=== PATIENT | male | born 1965 | race Caucasian/White ===

== ENCOUNTER 2024-08-21 13:49 | Emergency (ER) | payer OTHER, SELFPAY ==
[2024-08-21 13:52] VITALS: BP 122/79; PULSE 67; RESP 16; TEMP 36.8; O2SAT 97; BMI 33.0
[2024-08-21] MEDS: Morphine 4 MG/ML Syringe IM (14:56)
[2024-08-21] MEDS: Ondansetron ODT 4 MG Tablet PO (14:56)
--- NOTE | 2024-08-21 15:10 | RAD_ITS ---
STUDY: X-RAY - LUMBAR SPINE REASON FOR EXAM: Male, 59 years old. fall TECHNIQUE: 2 view(s) of the lumbar spine were obtained. COMPARISON: None FINDINGS: Normal lumbar lordosis. There is no substantial scoliosis. There is a normal alignment of the vertebrae. Wedge deformities of T10, T11, T12, and L1 are seen. These appear chronic. No definite acute fractures are seen. Normal disc space heights. The soft tissue structures are unremarkable. RAD/Lumbar Spine 2 or 3 Views IMPRESSION: There is no definite acute abnormality seen. No significant degenerative disc disease seen. Electronically Signed: Popeye Lopez MD at 15:51 EST ,
--- NOTE | 2024-08-21 15:15 | EX.ED.DYSGE1 ---
HPI <YG Tomlin - Last Filed: 08/21/24 16:31> History of Present Illness Chief Complaint: Fall Narrative Narrative: Patient is a 59-year-old male with history of hypertension, diabetes, cirrhosis of the liver who presents to the [facility] apartment after mechanical fall. Patient states he gets all of his care done at [facility]. He just recently moved here 3 to 4 days ago. Patient states that he had a mechanical fall early this morning, landing on his lower lumbar spine. Denies any head or neck injury. Patient states he had a call the ambulance. The pain is lower lumbar spine. Denies any other injury. COUNTS INCLUDE 234 BEDS AT THE [facility] <YG Tomlin - Last Filed: 08/21/24 16:31> COUNTS INCLUDE 234 BEDS AT THE [facility] Medical History (Updated 08/21/24 @ 16:31 by YG Tomlin) Back pain Home Medications ?Medication ?Instructions ?Recorded ?Last Taken ?Type lidocaine 5 % topical patch 3 patch topical DAILY #15 ea 08/21/24 Unknown Rx (Lidoderm) Allergy/AdvReac Type Severity Reaction Status Date / Time No Known Allergies Allergy Verified 08/21/24 13:50 Social History Smoking Status: Former smoker ROS <YG Tomlin - Last Filed: 08/21/24 16:31> ROS ED ROS Narrative Constitutional: Negative for fever, chills, weight loss, weakness Eyes: Negative for vision loss, vision change, double vision ENT: Negative for any sore throat, ear pain, congestion Cardiovascular: Negative for any chest pain, tightness, palpitations Respiratory: Negative for any cough, sputum production, hemoptysis, dyspnea, dyspnea on exertion, orthopnea Gastrointestinal: Negative for any abdominal pain, nausea, vomiting, diarrhea, constipation, blood in stool, blood in vomit : Negative for any urinary frequency, dysuria, retention, blood in urine Muscle skeletal: Negative for any neck pain. Positive for lower back pain Neurological: Negative for any headache, syncope, dizziness Skin: Negative for any rashes, itching, abrasions, lacerations Psychiatric: Negative for any depression, anxiety, stress, suicidal ideation, homicidal ideation Hematologic: Negative for any excessive bruising, easy bleeding EXAM <YG Tomlin - Last Filed: 08/21/24 16:31> Physical Exam Narrative Exam Narrative: Vital signs reviewed. HEET: Head normocephalic atraumatic, TMs clear bilaterally. Posterior pharynx is clear, moist mucous membranes. Nares clear bilaterally. Neck: Supple with no lymphadenopathy or tenderness. No signs of meningismus. Cardiac: Regular rate and rhythm no murmurs gallops or rubs, equal peripheral pulses bilaterally. Respiratory: Lungs clear to auscultation bilaterally. No chest tenderness. Abdomen: Soft, nontender, nondistended. No abdominal bruit or pulsatile masses. No hepatosplenomegaly Extremities: No peripheral edema, no signs of gross trauma or deformity. Active full range of motion of all extremities. Neuro: Cranial nerves II through XII intact, no focal neurological deficits. Skin: Clean dry and intact with no rash, purpura, petechiae, vesicles or pustules. Backs/flank: Pain to the lower lumbar spine, most the pain is to the right side paraspinal, there is no ecchymosis or edema. There is no midline spinal tenderness. Patient has full range of motion of the legs. +2 radial pulses. +2 pedal pulses. Equal strength bilaterally. Psych: Normal mood and affect. No SI, HI or acute psychosis. Const Vital Signs: 08/21/24 13:52 08/21/24 16:33 Temperature 98.3 F 98.5 F Temperature Source Oral Pulse Rate 67 61 Respiratory Rate 16 12 Blood Pressure 122/79 H 114/78 Blood Pressure Mean 93 90 Pulse Ox 97 97 Oxygen Delivery Method Room Air <Dr. Danny Hutton DO - Last Filed: 08/22/24 01:24> Physical Exam Const Vital Signs: 08/21/24 13:52 08/21/24 16:33 Temperature 98.3 F 98.5 F Temperature Source Oral Pulse Rate 67 61 Respiratory Rate 16 12 Blood Pressure 122/79 H 114/78 Blood Pressure Mean 93 90 Pulse Ox 97 97 Oxygen Delivery Method Room Air [facility] <YG Tomlin - Last Filed: 08/21/24 16:31> MDM Radiography Diagnostic Testing: Clinical Impression(s) from Imaging Studies Lumbar Spine X-Ray 08/21/24 15:10 IMPRESSION: There is no definite acute abnormality seen. No significant degenerative disc disease seen. Electronically Signed: Popeye Lopez MD at 15:51 EST , Treatment and Re-Evaluation :: Differential diagnosis includes however is not limited to: Lumbar fracture, lumbar strain, lumbar contusion, muscle spasm Patient appears generally well, vital signs are stable, patient is nontoxic-appearing. Presenting to the emergency department with complaints of lower lumbar back pain after mechanical fall that occurred earlier today. Patient will receive IM morphine, oral Zofran. X-rays will be obtained of the lower lumbar spine. All radiologic examinations were read, reviewed by the emergency department attending. From these reads, a plan of care will be put in place. Patient reevaluation was improved. Patient was resting. X-ray of the lower lumbar spine shows no definite acute abnormality seen. At this time, patient will be discharged home. Instructed to take [id number] medications. He will follow-up outpatient. All questions answered, patient stable for discharge. <Dr. Danny Hutton, DO - Last Filed: 08/22/24 01:24> MDM MDM Narrative Medical decision making narrative: Supervisory Physician Note Patient was seen and examined with the Advanced Practice Provider. Nursing notes and vital signs have been reviewed. Pertinent old records have been reviewed. I agree with the essential elements of the SAMSON's history, physical exam, assessment, and plan. The differential diagnosis and management options were discussed with the SAMSON. I participated in determining and agree with the management, procedures, final impression and disposition as documented. See changes noted by me. Please see addendum or separate note for any additional details. 59-year-old male presents for lumbar back pain after mechanical fall. Symptoms treated. Differential included myofascial spasm/strain versus fracture. Suspected less likely fracture based on physical exam. X-ray obtained and negative for fracture dislocation. Pain was controlled and improved. Patient ambulated in the emergency without difficulty. Patient was discharged home. Impression: 1. Lumbar contusion 2. Lumbar back strain 3. Mechanical fall Radiography Diagnostic Testing: Clinical Impression(s) from Imaging Studies Lumbar Spine X-Ray 08/21/24 15:10 IMPRESSION: There is no definite acute abnormality seen. No significant degenerative disc disease seen. Electronically Signed: Popeye Lopez MD at 15:51 EST , Discharge Plan Triage Chief Complaint: Fall Other Complaint: Back ED Midlevel Provider: Jerald Blandon ED Provider: Danny Hutton Dx/Rx/DC Orders Clinical Impression: Fall, Lumbar contusion Instructions: ED Back Contusion Prescriptions: New lidocaine [Lidoderm] 5 % adhesive patch,medicated 3 patch topical DAILY Qty: 15 0RF Rx Instructions: leave on most painful area for up to 12 hrs Primary Care Provider: Care Physician,No Primary Referrals: Leann Marion MD [Med Staff - Link Trainer Operator] - Care Physician,No Primary [Primary Care Provider] - Activity Restrictions/Additional Instructions: Please follow-up outpatient. Perform gentle stretching, ice and heat. Print Language: Honduran Disposition Disposition: Home, Self Care Discharge Date/Time: 08/21/24 16:50
[2024-08-21 16:33] VITALS: BP 114/78; PULSE 61; RESP 12; TEMP 36.9; O2SAT 97
== END 2024-08-21 16:50 | disposition home or self-care (01) ==
PROVIDERS: Emergency Provider Surgery; Visit Provider Surgery
DX: S39.012A Strain of muscle, fascia and tendon of lower back, initial encounter (principal); K74.60 Unspecified cirrhosis of liver; E11.9 Type 2 diabetes mellitus without complications; Z79.4 Long term (current) use of insulin; W19.XXXA Unspecified fall, initial encounter; I10 Essential (primary) hypertension; Z79.899 Other long term (current) drug therapy; Z87.891 Personal history of nicotine dependence

== ENCOUNTER 2024-08-29 13:52 | Inpatient (IN) | payer OTHER, SELFPAY ==
[2024-08-29] VITALS (14 sets, daily range): BP systolic 75–146; BP diastolic 43–78; PULSE 55–99; RESP 11–18; TEMP 36.4–37.2; O2SAT 98–100; BMI 33.6; BMI 33.1
--- NOTE | 2024-08-29 15:09 | EDS_ITS ---
HPI History of Present Illness Chief Complaint: General Illness [facility] Medical History (Updated 08/29/24 @ 00:01 by Background Daemon) Back pain Home Medications ?Medication ?Instructions ?Recorded ?Last Taken ?Type lidocaine 5 % topical patch 3 patch topical DAILY #15 ea 08/21/24 Unknown Rx (Lidoderm) Allergy/AdvReac Type Severity Reaction Status Date / Time No Known Allergies Allergy Verified 08/29/24 13:52 Social History Smoking Status: Former smoker EXAM Physical Exam Const Vital Signs: 08/29/24 13:52 08/29/24 14:48 08/29/24 16:00 Temperature 98.6 F 98.9 F Temperature Source Oral Temporal Pulse Rate 99 78 Respiratory Rate 18 16 Respiratory Effort Normal Non-Labored Respiratory Pattern Normal Blood Pressure 104/78 146/78 H Blood Pressure Mean 86 100 Pulse Ox 99 98 Oxygen Delivery Method Room Air Room Air 08/29/24 17:35 08/29/24 17:43 08/29/24 18:50 Temperature Temperature Source Pulse Rate 55 L 55 L Respiratory Rate 11 L 13 Respiratory Effort Respiratory Pattern Blood Pressure 85/55 L 84/53 L 75/45 L Blood Pressure Mean 65 63 55 Pulse Ox 99 98 Oxygen Delivery Method Room Air Room Air 08/29/24 20:00 08/29/24 20:20 Temperature Temperature Source Pulse Rate 57 L Respiratory Rate 15 Respiratory Effort Respiratory Pattern Blood Pressure 89/56 L 94/63 Blood Pressure Mean 67 73 Pulse Ox 99 Oxygen Delivery Method MDM MDM MDM Narrative Medical decision making narrative: HISTORY OF PRESENT ILLNESS: 59-year-old male presents concern for generalized illness. Patient called EMS because he has a history of liver issues. He states I have ammonia issues. Notes he does not take medications at home. States he gets this way when numbers increased. He notes severe back pain notes his is chronic but exacerbated by recent fall where he fell down and hit his back. Denies head trauma. He denies vomiting, diarrhea, urinary complaints, fever cough. REVIEW OF SYSTEMS: Pertinent positives: Ammonia issues, back pain Pertinent negatives: Bowel or bladder incontinence, chest pain, shortness of breath PHYSICAL EXAM: Nursing triage notes reviewed, Vital signs reviewed Constitutional: please see mdm HENT: MMM Eyes: Scleral icterus Neck: No stridor, no JVD, full neck ROM Lungs: Clear to auscultation, No wheezing or rales. No increased work of breathing, no conversational dyspnea, no accessory muscle use, no nasal flaring. No respiratory distress noted Heart: Regular rate and rhythm, No murmurs, No rubs and No gallops, 2+ distal pulses (radial, femoral, posterior tibial) in all extremities Abdomen: Soft, there is no tenderness, rigidity, rebound or guarding, no obvious peritoneal signs, no palpable pulsatile abdominal masses, no auscultated abdominal bruit : No CVAT Extremities: No edema Back: Mid thoracic and upper lumbar TTP with no obvious above deformities. No bruising noted Neuro: A&O x 2 intact sensation L1-S1 dermatomal distributions. Intact 5/5 strength in hip flexion (T12-L3). Knee extension (L2-L4). Ankle dorsiflexion (L4-L5). Ankle plantar flexion (S1). Great toe extension (L5). 2+ patellar and Achilles DTRs. Skin: Jaundice MEDICAL DECISION MAKING: Chief Complaint: Ammonia issues, back pain External records reviewed: Reviewed recent ED visit for fall Factors affecting care: hypertension, diabetes, liver cirrhosis Social determinants of health: none History obtained from others: n EMS Consults: none [facility] Narrative: The patient was initially hemodynamically stable, afebrile and nontoxic- appearing. Exam with TTP over thoracic lumbar spine. No lower extremity neurovascular deficits no sign of head trauma patient was initially somnolent but arouses to voice. He was alert and oriented to person, time but not place (he thought he was in [place]) I considered the following differential diagnosis: ICH, bony injury of the axial skeleton, arrhythmia, anemia, electro disturbance, renal failure, decompensated cirrhosis ALL IMAGES (IF OBTAINED) HAVE BEEN PERSONALLY REVIEWED AND INTERPRETED BY MYSELF. EKG with sinus bradycardia rate 55, left axis deviation, normal intervals, QTc 430, no STEMI CBC with leukocytosis suggestive of systemic infection, noted mild anemia, no prior for comparison, noted thrombocytopenia Coagulation studies showed mild coagulopathy owing to liver disease CMP with mild hyponatremia, noted metabolic acidosis, noted severe kidney dysfunction, acute renal failure. Noted hyperbilirubinemia consistent with liver dysfunction Ammonia elevated Lipase is wnl indicating no pancreatic inflammation. UA with evidence of urinary inflammation will send for culture as patient has no urinary symptoms at this time. I have personally reviewed the patient's chest x-ray. Chest x-ray is unremarkable for pulmonary edema, pneumothorax, pneumonia or focal cardiopulmonary abnormality. The patient and/or family, caregivers express understanding. The patient and/or family, caregivers agrees with the plan. Shared decision making: I will have a discussion with the patient and or visitors regarding risk/benefits of further testing or admission. They will be made aware of of the risk/benefits inherent in this decision they will be given the opportunity to voice understanding. Total critical care time today provided was at least 0 minutes. This excludes separately billable procedures. Critical care time (if documented) is secondary to the patient having high probability of clinically significant/life threatening deterioration in the patient's condition which required my urgent intervention. Impression: 1. Back pain 2. Jaundice 3. Liver cirrhosis 4. Hypotension (resolved) 5. Hyperbilirubinemia 6. Metabolic acidosis 5. Acute renal failure Dispo: Admit This note was generated with [employer] dictation software. It may contain incorrect words, spelling, and punctuation that were not noted in review of the chart prior to signing. Lab Data Labs: Laboratory Results - last 24 hr 08/29/24 08/29/24 08/29/24 14:56 15:30 19:40 WBC 11.9 H RBC 3.86 L Hgb 11.2 L Hct 32.2 L MCV 83.4 MCH 29.0 MCHC 34.8 RDW Std Deviation 46.8 H RDW Coeff of Francis 15.4 H Plt Count 87 L MPV 12.5 H Immature Gran % (Auto) 1.000 H Neut % (Auto) 76.6 H Lymph % (Auto) 8.7 L Caroline % (Auto) 10.4 H Eos % (Auto) 2.9 Baso % (Auto) 0.4 Absolute Neuts (auto) 9.1 H Absolute Lymphs (auto) 1.03 Nucleated RBC % 0 PT 20.0 H INR 1.7 APTT 40.9 H Sodium 134 L Potassium 3.9 Chloride 104 Carbon Dioxide 18.0 L Anion Gap 12 BUN 76 H Creatinine 5.63 H Est GFR (MDRD) Af Amer 13 L Est GFR (MDRD) Non-Af 11 L BUN/Creatinine Ratio 13.5 Glucose 257 H Calcium 8.5 Total Bilirubin 1.40 H AST 32 ALT 26 Alkaline Phosphatase 172 H Ammonia 99.0 H Total Protein 6.2 L Albumin 1.9 L Globulin 4.3 H Albumin/Globulin Ratio 0.4 L Lipase 26 Urine Color Yellow Urine Clarity Clear Urine pH 6.0 Ur Specific Hibbs 1.015 Urine Protein 30 H Urine Glucose (UA) 50 H Urine Ketones Negative Urine Occult Blood 150 H Urine Nitrite Negative Urine Bilirubin 1 H Urine Urobilinogen 1 H Ur Leukocyte Esterase 500 H Urine RBC 5-10 SEEN Urine WBC 10-25 SEEN Ur Squamous Epith Cells 0 SEEN Urine Bacteria RARE Urine Mucus 1+ Radiography Diagnostic Testing: Clinical Impression(s) from Imaging Studies Brain CT 08/29/24 15:25 IMPRESSION: No acute intracranial findings. Electronically Signed: Nabor Acevedo MD at 17:51 EST , Cervical Spine CT 08/29/24 15:25 IMPRESSION: Degenerative changes. No acute fracture of the cervical spine. Electronically Signed: Nabor Acevedo MD at 17:58 EST Reading Location ID and State: [facility] / [place] Tel , Service support , Lumbar Spine CT 08/29/24 15:25 IMPRESSION: No acute bony abnormality. Electronically Signed: Nabor Acevedo MD at 18:45 EST , Thoracic Spine CT 08/29/24 15:25 IMPRESSION: No acute bony abnormality. Electronically Signed: Nabor Acevedo MD at 18:17 EST , Chest X-Ray 08/29/24 16:55 IMPRESSION: No radiographic evidence of acute cardiopulmonary disease. Electronically Signed: Nabor Acevedo MD at 18:02 EST , Discharge Plan Triage Chief Complaint: General Illness ED Provider: Luis Carlos Anderson Dx/Rx/DC Orders Prescriptions: No Action lidocaine [Lidoderm] 5 % adhesive patch,medicated 3 patch topical DAILY Qty: 15 0RF Rx Instructions: leave on most painful area for up to 12 hrs Primary Care Provider: Care Physician,No Primary Referrals: Care Physician,No Primary [Primary Care Provider] - Print Language: Greek
[2024-08-29 15:19] LABS: ALB/GLOB Ratio 0.4 RATIO (0.9-2.4); AST(SGOT) 32 U/L (15-37); Alanine Aminotransfer ALT/SGPT 26 U/L (16-61); Albumin, Serum 1.9 g/dL (3.2-5.0); Alkaline Phosphatase 172 U/L (45-117); Anion Gap 12 (5-15); BUN 76 mg/dL (7-18); BUN/Creat Ratio 13.5 RATIO (10-20); Calcium,Total 8.5 mg/dL (8.5-10.1); Chloride 104 mmol/L (98-107); Creatinine, Serum 5.63 mg/dL (0.70-1.30); EST Glomerular Filtration Rate 11 mL/min (>60); Est Glom Filt Rate - Afr Amer 13 mL/min (>60); Globulin 4.3 g/dL (2.2-4.2); Glucose 257 mg/dL (74-106); Potassium 3.9 mmol/L (3.5-5.1); Protein, Total 6.2 g/dL (6.4-8.2); Sodium Level 134 mmol/L (136-145)
[2024-08-29 15:21] LABS: Absolute Lymphocyte Count 1.03 X10^3/uL (0.83-4.51); Absolute Neutrophil Count 9.1 X10^3/uL (2.0-7.7); Basophil# 0.05 X10^3/uL; Basophil% 0.4 % (0-1); Eosinophil# 0.34 X10^3/uL; Eosinophils% 2.9 % (0-5); Hematocrit 32.2 % (40-54); Hemoglobin 11.2 g/dL (13.0-16.5); Lymphocyte # 1.03 X10^3/ul (0.83-4.51); Lymphocyte % 8.7 % (19-41); Mean Corp Hgb Conc 34.8 g/dL (32-36); Mean Corpuscular Volume 83.4 fL (80-94); Mean Platelet Vol. 12.5 fl (6.2-12.0); Monocyte# 1.23 X10^3/uL; Monocyte% 10.4 % (0-10); NRBC Flagged by Analyzer 0 % (0-5); Neutrophil # 9.09 X10^3/uL (2.7-7.7); Neutrophil % 76.6 % (47-70); POSITIVE COUNT YES; Platelet Count 87 K/mm3 (150-450); RBC Distribution Width CV 15.4 % (11.6-14.6); RBC Distribution Width SD 46.8 fl (35.1-43.9); Red Blood Count 3.86 M/mm3 (4.6-6.2); White Blood Count 11.9 K/mm3 (4.4-11.0)
--- NOTE | 2024-08-29 15:25 | CT_ITS ---
INDICATION: AMS EXAMINATION: CT BRAIN - CT Head or Brain W/O Contrast Injection TECHNIQUE: Multiple axial images were obtained of the head without intravenous contrast. A radiation dose optimization technique was used for this scan. IV Contrast dosage and agent: None. COMPARISON: None. FINDINGS: BRAIN PARENCHYMA: No intra- or extra-axial hemorrhage. No evidence of acute infarct. No intracranial mass or mass effect. There is preservation of the reynolds/white matter interface. Posterior fossa structures are unremarkable. CSF SPACES: Appropriate for age. No hydrocephalus. Basal cisterns are patent. CALVARIUM, SKULL BASE, PARANASAL SINUSES AND MASTOID AIR CELLS: Left maxillary sinusitis with osseous sclerosis indicating chronic sinusitis. No discrete lytic or blastic abnormalities. ORBITS: Both globes, extraocular muscles, optic nerves and retrobulbar fat appear unremarkable. CT/Brain/Head without Contrast IMPRESSION: No acute intracranial findings. Electronically Signed: Nabor Acevedo MD at 17:51 EST ,
--- NOTE | 2024-08-29 15:25 | CT_ITS ---
INDICATION: back pain EXAMINATION: CT THORACIC SPINE - CT Spine Thoracic W/O Contrast Injection TECHNIQUE: Helically acquired images were obtained of the thoracic spine. 2D reformats were reviewed. A radiation dose optimization technique was used for this scan. IV Contrast dosage and agent: None. COMPARISON: Lumbar spine series 08/21/2024 FINDINGS: VERTEBRAE: Stable chronic appearing mild wedge deformities of T11 and T12. No acute fracture. No discrete lytic or blastic abnormality observed. VERTEBRAL ALIGNMENT: Unremarkable. There is preservation of the normal thoracic kyphosis. DISCS: Disc heights are preserved. VISUALIZED THORAX: Visualized thoracic aorta is nondilated. Lung lackey are clear. CT/Spine Thoracic without Contras IMPRESSION: No acute bony abnormality. Electronically Signed: Nabor Acevedo MD at 18:17 EST ,
--- NOTE | 2024-08-29 15:25 | CT_ITS ---
INDICATION: neck pain EXAMINATION: CT CERVICAL SPINE - CT Spine Cervical W/O Contrast Injection TECHNIQUE: Helically acquired images were obtained of the cervical spine. 2D reformatted images were reviewed. A radiation dose optimization technique was used for this scan. IV Contrast dosage and agent: None. COMPARISON: None. FINDINGS: VERTEBRAE: No fracture or traumatic subluxation. No discrete lytic or blastic abnormality. Normal alignment. Normal craniocervical junction and cervicothoracic junction. DISCS and SPINAL CANAL: Loss of disc height C5-6. Disc-osteophyte at C5-6 produces moderate central and bilateral foraminal stenosis. NECK SOFT TISSUES: No prevertebral soft tissue swelling. LUNG APICES: Clear. CT/Spine Cervical without Contras IMPRESSION: Degenerative changes. No acute fracture of the cervical spine. Electronically Signed: Nabor Acevedo MD at 17:58 EST ,
--- NOTE | 2024-08-29 15:25 | CT_ITS ---
INDICATION: back pain EXAMINATION: CT LUMBAR SPINE - CT Spine Lumbar W/O Contrast Injection TECHNIQUE: Helically acquired images were obtained of the lumbar spine. 2D reformats were reviewed. A radiation dose optimization technique was used for this scan. The protocol utilizes one or more of the following dose reduction techniques: automated exposure control, adjustment of mA and/or kV according to patient size,and/or use of iterative reconstruction technique. IV Contrast dosage and agent: None. RADIATION DOSAGE (If Supplied By Facility): CTDIvol = ( 42.77 ) mGy, DLP = ( 1692.06 ) mGycm COMPARISON: Prior study dated: Lumbar spine series 08/21/2024 FINDINGS: VERTEBRAE: Stable chronic appearing mild wedge deformities T11 and T12. No discrete lytic or blastic abnormality observed. Normal alignment. DISCS and SPINAL CANAL: Disc heights are preserved. No critical stenosis. VISUALIZED ABDOMEN: Visualized abdominal aorta is not dilated. Left staghorn calculus. CT/Spine Lumbar without Contrast IMPRESSION: No acute bony abnormality. Electronically Signed: Nabor Acevedo MD at 18:45 EST ,
--- NOTE | 2024-08-29 15:29 | EKG12_ITS ---
Test Reason : ARRYTH Blood Pressure : */* mmHG Vent. Rate : 55 BPM Atrial Rate : 55 BPM P-R Int : 192 ms QRS Dur : 104 ms QT Int : 450 ms P-R-T Axes : 8 -14 29 degrees QTcB Int : 430 ms Sinus bradycardia Otherwise normal ECG Confirmed by DICKSON HERNANDEZ, EZE ([id number]), greeting card editor FAHAD INGRAM ([id number]) on 08/31/2024 6:21:01 AM Referred By: Maria Guadalupe Shore Confirmed By: EZE FORMAN MD
[2024-08-29 15:49] LABS: International Normalized Ratio 1.7
[2024-08-29 15:50] LABS: Partial Thromboplast Time 40.9 Seconds (24.1-36.2)
[2024-08-29 15:58] LABS: Lipase 26 U/L (13-75)
--- NOTE | 2024-08-29 16:55 | RAD_ITS ---
INDICATION: AMS EXAMINATION/TECHNIQUE: X-RAY - portable upright AP chest x-ray COMPARISON: None. FINDINGS: LINES/DEVICES: None. LUNGS: No consolidation, edema or effusion. No pneumothorax. MEDIASTINUM AND CARDIOVASCULAR STRUCTURES: Cardiac silhouette not enlarged. Central airways and mediastinal contour are unremarkable. BONES AND SOFT TISSUES: No acute findings. RAD/Chest 1 View (Portable) IMPRESSION: No radiographic evidence of acute cardiopulmonary disease. Electronically Signed: Nabor Acevedo MD at 18:02 EST ,
[2024-08-29] MEDS: Albumin Human 25% (100 mL) 25 GM/100 ML BAG IV (19:50)
[2024-08-29 19:51] LABS: Squamous Epithelial Cells - UA 0 SEEN /hpf (0-5)
[2024-08-29 20:02] LABS: Color, Urine Yellow (Yellow); Glucose, Dipstick 50 mg/dl (Normal); Ketone-Dipstick Negative (Negative); Leukocyte Esterase-Dipstick 500 /ul (Negative); Nitrite-Dipstick Negative (Negative); Occult Blood-Urine 150 /ul (Negative); Protein-Dipstick 30 mg/dl (Negative); Specific Gravity, Urine 1.015 (1.002-1.030); Urine Bilirubin Dipstick 1 mg/dL (Negative); Urine Clarity Clear (Clear); Urine Urobilinogen 1 mg/dl (Normal)
[2024-08-29 20:04] LABS: Bacteria RARE /hpf (None Seen); Mucous, Urine 1+ /hpf (<or=2+); Red Blood Cells-Urine 5-10 SEEN /hpf (0-5); White Blood Cells 10-25 SEEN /hpf (0-5)
--- NOTE | 2024-08-29 21:11 | PCM.HP.STD ---
HPI - General General Date of Admission: 08/29/24 Date of Service: 08/29/24 Chief Complaint: Weakness, fatigue. HPI Narrative The patient is a 59 y/o M w/ PMHx: ABBY, HTN, HLD, Diabetes mellitus type II, Nonalcoholic cirrhotic liver disease, Former tobacco use, Suspected Chronic anemia/thrombocytopenia secondary to underlying liver disease, recent mechanical fall 08/21/24 with ED visit at that time with acute on chronic lumbar spine discomfort w/ unremarkable ED evaluation at that time recently moved from [place] to [facility] [place] earlier in August 2024 reportedly not taking any medications despite his myriad of underlying disease history who now Diego presents to the [facility] ED on 08/29/24 with generalized fatigue, malaise with ongoing significant lumbar back pain reported that likely his ammonia level is elevated prompting eventual ED evaluation to be cautious. Workup in the ED included T98.6, heart rate 99, BP 104/78, respiratory rate 18, 9% on room air with while in the ED onset of hypertension starting at approximately 1735 with most recent repeat blood pressure 77/47 with a MAP of 57 with heart rate 59, CBC with WBC 11.9, hemoglobin 11.2, MCV 83.4, platelet 87 with left shift, coags with PT 20, PTT 40.9, INR 1.7, CMP with sodium 134, come back side 18, anion gap 12, BUN/creatinine 76/5.63, glucose 257, T. bili 1.40, AST/ALT 32/26, alk phos 172, ammonia level 99, lipase 26, urinalysis with specific cavity 1.015, protein 30, glucose 50, negative ketone, occult blood 150, negative nitrite, leukocyte esterase 500 with urine WBCs 10-25 with rare urine bacteria, CT brain with no acute intracranial findings, CT cervical spine with degenerative changes with no acute fracture, CT lumbar spine with no acute bony abnormality, CT thoracic spine with no acute bony abnormality, chest x-ray with no acute cardiopulmonary findings, EKG with sinus bradycardia with no acute evidence of ischemia. In the ED patient ministered morphine 2 mg IV x 1 as well as albumin 25 g IV x 1. [facility] Medical History Hyperbilirubinemia Liver cirrhosis secondary to HARRIS (nonalcoholic steatohepatitis) HLD (hyperlipidemia) HTN (hypertension) Thrombocytopenia Chronic anemia Former tobacco use Diabetes mellitus, type 2 ABBY on CPAP Back pain Home Medications ?Medication ?Instructions ?Recorded ?Last Taken ?Type lidocaine 5 % topical patch 3 patch topical DAILY #15 ea 08/21/24 08/28/24 Rx (Lidoderm) cyclobenzaprine 10 mg tablet 10 mg PO QHS 08/29/24 Unknown History folic acid 1 mg tablet 1,000 mcg PO DAILY 08/29/24 Unknown History Allergy/AdvReac Type Severity Reaction Status Date / Time No Known Allergies Allergy Verified 08/29/24 13:52 Family History (Updated 08/29/24 @ 23:[address] Maria Guadalupe Shore MD) Mother Heart disease Hypertension CAD (coronary artery disease) Myocardial infarction Father Hypertension Heart disease Heart failure Surgical History History of tonsillectomy and adenoidectomy Surgical History no surgical history Social History (Updated 08/29/24 @ 23:[address] Maria Guadalupe Shore MD) household members: significant other Smoking Status: Former smoker how long ago did patient quit smoking: Quit ~ 3-4 months prior (fall 2023), smoked 1.5 ppd since teen until quit. alcohol intake: never substance use type: does not use ROS ROS Narrative Admission Review of Systems: CONSTITUTIONAL: No weight loss, fever, chills, + weakness or fatigue. HEENT: Eyes: No visual loss, blurred vision, double vision or yellow sclerae. Ears, Nose, Throat: No hearing loss, sneezing, congestion, runny nose or sore throat. SKIN: No rash or itching, lesions, wounds except + mildly jaundiced appearance, occasional stage ecchymoses and abrasion. CARDIOVASCULAR: No chest pain, chest pressure or chest discomfort, palpitations, edema, orthopnea, syncopal events. RESPIRATORY: No shortness of breath, cough or sputum, wheezing, hemoptysis. GASTROINTESTINAL: No anorexia, nausea, vomiting or diarrhea, abdominal pain, melena, BRBPR. GENITOURINARY: No dysuria, frequency, urgency or retention. NEUROLOGICAL: + Fatigue, confusion, lethargy. No headache, dizziness, syncope, paralysis, ataxia, numbness or tingling in the extremities, focal weakness, change in bowel or bladder control, seizure. MUSCULOSKELETAL: + muscle, back pain, joint pain or stiffness. HEMATOLOGIC: + Chronic anemia, easy bleeding/bruising. LYMPHATICS: No enlarged nodes. No history of splenectomy. PSYCHIATRIC: No history of depression or anxiety. ENDOCRINOLOGIC: No reports of sweating, cold or heat intolerance. No polyuria or polydipsia. ALLERGIES: No history of asthma, hives, eczema or rhinitis. Vital Signs Vital Signs Vital Signs: 08/29/24 13:52 08/29/24 14:48 08/29/24 16:00 Temperature 98.6 F 98.9 F Temperature Source Oral Temporal Pulse Rate 99 78 Respiratory Rate 18 16 Respiratory Effort Normal Non-Labored Respiratory Pattern Normal Blood Pressure 104/78 146/78 H Blood Pressure Mean 86 100 Pulse Ox 99 98 Oxygen Delivery Method Room Air Room Air 08/29/24 17:35 08/29/24 17:43 08/29/24 18:50 Temperature Temperature Source Pulse Rate 55 L 55 L Respiratory Rate 11 L 13 Respiratory Effort Respiratory Pattern Blood Pressure 85/55 L 84/53 L 75/45 L Blood Pressure Mean 65 63 55 Pulse Ox 99 98 Oxygen Delivery Method Room Air Room Air 08/29/24 20:00 08/29/24 20:20 08/29/24 20:45 Temperature Temperature Source Pulse Rate 57 L 59 L Respiratory Rate 15 Respiratory Effort Respiratory Pattern Blood Pressure 89/56 L 94/63 85/43 L Blood Pressure Mean 67 73 57 Pulse Ox 99 Oxygen Delivery Method 08/29/24 20:58 Temperature Temperature Source Pulse Rate Respiratory Rate Respiratory Effort Respiratory Pattern Blood Pressure 77/47 L Blood Pressure Mean 57 Pulse Ox Oxygen Delivery Method Weight Weight: 227 lb 11.8 oz Body Mass Index (BMI) 33.6 Physical Exam Narrative Physical Examination: General: Awakens to stimuli, intermittently alert but is lethargic, oriented to self, place and recent events but very sluggish, laying in the ED bed, blood pressure is mildly improved but was initially significantly hypotensive. Skin: Mildly jaundiced appearance normal turgor, no cyanosis, mild scleral icterus, occasional abrasion noted HEENT: AT/NC, EOMI, PERRLA, dry MM, no carotid bruits or JVD noted. Lungs: Diminished, greater bases, appropriate effort, no rales, ronchi or wheezing. Heart: Regular rate and rhythm; no gallop, rub audible. Abdomen: Soft, obese, NTTP, ND, mildly hyperactive BS, + HM. Extremities: No cyanosis, no clubbing, no marked peripheral edema noted. Neurological: Awakens to stimuli, intermittently alert but is lethargic, oriented to self, place and recent events but very sluggish, laying in the ED bed, blood pressure is mildly improved but was initially significantly hypotensive, cognitive function decreased from baseline intact; pupils equally reactive to light and accommodation, cranial nerves grossly normal, moving all 4 extremities, no focal deficits, strength moderately to severely globally decreased secondary to acute presentation. Psychiatric: Affect appears flat, lethargic, no acute evidence of depressive or anxiety feelings. Results Lab / Micro Data 08/29/24 14:56 08/29/24 14:56 Labs: Laboratory Results - last 24 hr 08/29/24 14:56: WBC 11.9 H, RBC 3.86 L, Hgb 11.2 L, Hct 32.2 L, MCV 83.4, MCH 29.0, MCHC 34.8, RDW Std Deviation 46.8 H, RDW Coeff of Francis 15.4 H, Plt Count 87 L, MPV 12.5 H, Immature Gran % (Auto) 1.000 H, Neut % (Auto) 76.6 H, Lymph % (Auto) 8.7 L, [place] % (Auto) 10.4 H, Eos % (Auto) 2.9, Baso % (Auto) 0.4, Absolute Neuts (auto) 9.1 H, Absolute Lymphs (auto) 1.03, Nucleated RBC % 0, PT 20.0 H, INR 1.7, APTT 40.9 H, Sodium 134 L, Potassium 3.9, Chloride 104, Carbon Dioxide 18.0 L, Anion Gap 12, BUN 76 H, Creatinine 5.63 H, Est GFR (MDRD) Af Amer 13 L, Est GFR (MDRD) Non-Af 11 L, BUN/Creatinine Ratio 13.5, Glucose 257 H, Calcium 8.5, Total Bilirubin 1.40 H, AST 32, ALT 26, Alkaline Phosphatase 172 H, Total Protein 6.2 L, Albumin 1.9 L, Globulin 4.3 H, Albumin/Globulin Ratio 0.4 L 08/29/24 15:30: Ammonia 99.0 H, Lipase 26 08/29/24 19:40: Urine Color Yellow, Urine Clarity Clear, Urine pH 6.0, Ur Specific [place] 1.015, Urine Protein 30 H, Urine Glucose (UA) 50 H, Urine Ketones Negative, Urine Occult Blood 150 H, Urine Nitrite Negative, Urine Bilirubin 1 H, Urine Urobilinogen 1 H, Ur Leukocyte Esterase 500 H, Urine RBC 5-10 SEEN, Urine WBC 10-25 SEEN, Ur Squamous Epith Cells 0 SEEN, Urine Bacteria RARE, Urine Mucus 1+ Imaging Radiology Impression Brain CT 08/29/24 15:25 IMPRESSION: No acute intracranial findings. Electronically Signed: Nabor Acevedo MD at 17:51 EST , Cervical Spine CT 08/29/24 15:25 IMPRESSION: Degenerative changes. No acute fracture of the cervical spine. Electronically Signed: Nabor Acevedo MD at 17:58 EST Reading Location ID and State: On license of [facility] / [place] Tel , Service support , Lumbar Spine CT 08/29/24 15:25 IMPRESSION: No acute bony abnormality. Electronically Signed: Nabor Acevedo MD at 18:45 EST Reading Location ID and State: On license of [facility] / [place] Tel , Service support , Thoracic Spine CT 08/29/24 15:25 IMPRESSION: No acute bony abnormality. Electronically Signed: Nabor Acevedo MD at 18:17 EST , Chest X-Ray 08/29/24 16:55 IMPRESSION: No radiographic evidence of acute cardiopulmonary disease. Electronically Signed: Nabor Acevedo MD at 18:02 EST Reading Location ID and State: [facility] / [place] Tel , Service support , Assessment & Plan Assessment/Plan (1) Hepatic encephalopathy: PLAN: Plan The patient is a 59 y/o M w/ PMHx: ABBY, HTN, HLD, Diabetes mellitus type II, Nonalcoholic cirrhotic liver disease, Former tobacco use, Suspected Chronic anemia/thrombocytopenia secondary to underlying liver disease, recent mechanical fall 08/21/24 with ED visit at that time with acute on chronic lumbar spine discomfort w/ unremarkable ED evaluation at that time recently moved from [place] to [facility] [place] earlier in August 2024 reportedly not taking any medications despite his myriad of underlying disease history who now Diego presents to the [facility] ED on 08/29/24 with generalized fatigue, malaise with ongoing significant lumbar back pain reported that likely his ammonia level is elevated prompting eventual ED evaluation to be cautious. #1. Hypotension (suspected Acute on Chronic) in the setting of Acute Hepatic Encephalopathy with hyperammonemia secondary to Underlying Chronic Nonalcoholic Liver Cirrhosis with hyperbilirubinemia, anemia as well as thrombocytopenia suspect likely acute on chronic components, unclear if acute on chronic as no comparison labs: Will admit to the ICU, maintain on low Na/DM diet, initiate midodrine, already administered albumin in the ED, will initiate and continue aggressive lactulose regimen with ammonia level trending, consult grocery shopper per protocol, will consult gastroenterology as will need early aggressive follow-up, trend CMP, given acute kidney injury suspected at this time will defer aggressive diuresis spironolactone initiation and given hypotension will defer any concept of beta-madison usage at this time, will request liver US. Patient will need very aggressive follow-up to establish with primary care physician, continue outpatient evaluation with potentially nephrology and gastroenterology of note. He will need also assistance with new CPAP machine at home. Patient son also noted he is supposed to start being assessed for possible transplant consideration but had not started the process prior to moving to [place]. PT/OT/case management consulted for discharge planning. #2. Suspected ISABEL on possible underlying CKD but unclear staging is no comparison labs with associated metabolic acidosis: Admission BUN/creatinine 76/5.63, GFR 11, no comparison labs noted from previously, presenting in the setting of hepatic encephalopathy and not taking any of his medications, records have been requested, will maintain judicious hydration, will obtain UFeNa, will request renal US, Nephrology consulted. #3. Anemia, suspect chronic, normocytic, likely secondary to underlying liver disease: Admission hemoglobin 0.2, MCV 83.4, no prior baseline, records requested, will continue to trend CBC, Fe panel/ferritin also requested. #4. Thrombocytopenia, suspect chronic, likely secondary to underlying liver disease: Admission platelets 87, no comparison, will continue to trend CMP, records requested. #5. Diabetes mellitus type II with hyperglycemia, untreated: Patient has not been taking any medications, he will A1c requested, in the interim will initiate on lower dose 10 units twice daily long-acting, allow ADA/cardiac diet, maintain on accu checks w/ ISS. #6. Hypertension: Notes history but unclear exact medications, records requested, currently hypotensive thus will defer any consideration of initiation as noted. #7. Hyperlipidemia: Notes history, denies being on need to-medication potentially secondary to underlying liver disease. #8. Former tobacco usage: Encourage continued tobacco cessation. #9. GERD: We will place on PPI. #10. ABBY: CPAP q HS. Notes his home device is broken so he has not been using it. #11. DVT prophylaxis: Cautiously heparin, monitor platelets. #12. CODE status: Patient HCPOA is not in place but he notes his fianc?e would be his medical decision-maker if necessary. He does report having a living will but is uncertain exactly where this is located. Discussed CODE status at length including difference between FULL code, DNR-CCA and DNR-CC status. Following discussions about the differences in these status, requested Full Code status. Advanced Care Planning Face to Face Time: 16 minutes. Charges/Coding Visit Charges Inpatient E&M: 52770 Init Hosp L3 Procedures Hospitalists Procedures: 11295 Advncd Care Plan 30 Min
[2024-08-29 23:25] LABS: Magnesium 2.7 mg/dL (1.6-2.6); Phosphorus 4.9 mg/dL (2.5-4.9)
[2024-08-29] MEDS: 0.9% Normal Saline (1000mL) 1,000 ML 100 ML IV (23:53)
[2024-08-29] MEDS: Lactulose 20 GM/30 ML UDC PO (23:59)
[2024-08-29] MEDS: Insulin Glargine-YFGN 100 UNIT/ML Pen 10 UNIT SC (23:59)
[2024-08-30] VITALS (51 sets, daily range): BP systolic 72–121; BP diastolic 37–84; PULSE 58–71; RESP 11–22; TEMP 36.3–37; O2SAT 92–100; BMI 33.1
[2024-08-30] LABS: Urine Sodium 30 mmol/L (Not Establ.)
[2024-08-30 00:11] LABS: Bedside Glucose 167 mg/dL (74-106)
[2024-08-30 04:43] LABS: Absolute Lymphocyte Count 1.01 X10^3/uL (0.83-4.51); Absolute Neutrophil Count 7.6 X10^3/uL (2.0-7.7); Basophil# 0.04 X10^3/uL; Basophil% 0.4 % (0-1); Eosinophil# 0.31 X10^3/uL; Eosinophils% 3.1 % (0-5); Hematocrit 27.9 % (40-54); Hemoglobin 9.5 g/dL (13.0-16.5); Lymphocyte # 1.01 X10^3/ul (0.83-4.51); Lymphocyte % 10.1 % (19-41); Mean Corp Hgb Conc 34.1 g/dL (32-36); Mean Corpuscular Hgb 28.9 pg (27.0-32.0); Mean Corpuscular Volume 84.8 fL (80-94); Mean Platelet Vol. 12.6 fl (6.2-12.0); Monocyte# 0.93 X10^3/uL; Monocyte% 9.3 % (0-10); NRBC Flagged by Analyzer 0 % (0-5); Neutrophil # 7.61 X10^3/uL (2.7-7.7); Neutrophil % 76.4 % (47-70); POSITIVE COUNT YES; Platelet Count 67 K/mm3 (150-450); RBC Distribution Width CV 15.6 % (11.6-14.6); RBC Distribution Width SD 48.4 fl (35.1-43.9); Red Blood Count 3.29 M/mm3 (4.6-6.2)
[2024-08-30 04:59] LABS: AST(SGOT) 22 U/L (15-37); Alanine Aminotransfer ALT/SGPT 19 U/L (16-61); Albumin, Serum 1.9 g/dL (3.2-5.0); Alkaline Phosphatase 143 U/L (45-117); Anion Gap 13 (5-15); BUN 73 mg/dL (7-18); BUN/Creat Ratio 13.6 RATIO (10-20); Bilirubin, Direct 0.83 mg/dL (0.00-0.30); Chloride 105 mmol/L (98-107); Creatinine, Serum 5.37 mg/dL (0.70-1.30); EST Glomerular Filtration Rate 12 mL/min (>60); Est Glom Filt Rate - Afr Amer 14 mL/min (>60); Estimated Creatinine Clearance 17.63 ml/min; Ferritin 85 ng/mL (26-388); Globulin 3.4 g/dL (2.2-4.2); Glucose 267 mg/dL (74-106); Iron 62 ug/dL (65-175); Iron Binding Capacity,Total 183 ug/dL (250-450); PERCENT IRON SATURATION 33.9 % (15.0-55.0); Potassium 3.4 mmol/L (3.5-5.1); Protein, Total 5.3 g/dL (6.4-8.2); Sodium Level 133 mmol/L (136-145)
--- NOTE | 2024-08-30 05:55 | US_ITS ---
EXAM: US ABDOMEN LIMITED, RIGHT UPPER QUADRANT CLINICAL INDICATION: Cirrhosis TECHNIQUE: Real-time ultrasound of the right upper quadrant with image documentation. COMPARISON: No relevant prior studies available. FINDINGS: LIVER: There is a nodular margin to the liver. The liver measures 17.1 cm. GALLBLADDER: There are multiple echogenic foci in the gallbladder compatible gallstones. The gallbladder wall measures 3 mm. No pericholecystic fluid. Negative sonographic Vazquze''s sign. COMMON BILE DUCT: The common bile duct measures 5 mm. There is minimal flow in the common bile duct which has components of both hepatopedal and hepatofugal flow. The proximal common bile duct is within normal limits for the patient''s age. PANCREAS: Unremarkable as visualized. No focal abnormality is demonstrated in the pancreas. No pancreatic ductal dilatation. RIGHT KIDNEY: Unremarkable. There is no hydronephrosis. No shadowing calculus. No focal lesion or perinephric collection is demonstrated. The right kidney measures 11.0 x 6.0 x 5.2 cm. IMPRESSION: 1. Nodular margin of the liver compatible with cirrhosis. There is minimal flow in the portal vein which has components of both hepatopedal and hepatofugal flow. 2. Cholelithiasis with no sonographic evidence of cholecystitis. Electronically Signed: Jasbir Yanes MD at 16:29 EST , EXAM: US RETROPERITONEAL LIMITED, RENAL CLINICAL INDICATION: Cirrhosis TECHNIQUE: Limited grayscale and color Doppler sonographic evaluation of the retroperitoneum was performed. COMPARISON: No relevant prior studies available. FINDINGS: RIGHT KIDNEY: The right renal cortex measures 1.3 cm. No hydronephrosis. No shadowing calculus. No perinephric collection is demonstrated. The right kidney measures 11.0 x 6.0 x 5.2 cm. LEFT KIDNEY: The left kidney measures 12.9 x 7.2 x 6.5 cm. The left renal cortex measures 1.7 cm. There is mild dilatation of calyces in the left kidney. There is a 1 cm nonobstructing calyceal stone in the left kidney. No perinephric collection is demonstrated. BLADDER: The bladder measures 7.5 x 5.8 x 8.4 cm for volume of 193 mL. The bladder wall measures 2 mm. FREE FLUID: There is free fluid in the pelvis. US/Liver IMPRESSION: Prominence of the calyceal system and the left kidney. There is a nonobstructing calyceal stone. There is no discrete hydronephrosis seen. There is a trace amount of free fluid around the bladder in the pelvis. Electronically Signed: Jasbir Yanes MD at 16:38 EST ,
[2024-08-30] MEDS: Lactulose 20 GM/30 ML UDC PO ×3 (06:25→22:05)
[2024-08-30] MEDS: Insulin Lispro 100 UNIT/ML INSULN.PEN SC ×4 (06:29→21:39)
[2024-08-30 06:43] LABS: Bedside Glucose 259 mg/dL (74-106)
[2024-08-30] MEDS: Midodrine HCl 5 MG Tablet 10 MG PO ×4 (07:08→17:26)
--- NOTE | 2024-08-30 07:58 | EX.PCM.CONCC ---
Assessment & Plan Assessment/Plan (1) Hepatic encephalopathy: (2) Hypotension: (3) ISABEL (acute kidney injury): PLAN: Plan RECOMMENDATIONS: 1. Fluid hydration as ordered. 2. Initiate vasopressor support for fluid refractory hypotension. 3. Liver ultrasound is pending. 4. Await gastroenterology and nephrology input. 5. Continue lactulose and scheduled midodrine along with PPI therapy. 6. Electrolyte repletion as needed. IMPRESSIONS: 1. Hypotension Clinical concern for nonhemorrhagic hypovolemic shock in the setting of cirrhosis. No definitive source of infection has been identified. Will administer additional IV fluid resuscitation as ordered. If the patient remains hypotensive, despite the use of midodrine, will initiate Levophed. Otherwise, continue current supportive care, while awaiting gastroenterology evaluation. 2. Acute kidney injury Concern for prerenal etiology. In light of the patient's liver history, hepatorenal syndrome would be a possibility. Continue current supportive care with gentle IV fluid hydration. Initiate vasopressor support for fluid refractory hypotension. Nephrology consultation is currently pending. 3. History of HARRIS cirrhosis/diabetes mellitus/hyperlipidemia/prior tobacco dependency Complicates care, management, recovery and prognosis. Continue supportive measures as noted above. This note was generated with [employer] dictation software. It may contain incorrect words, spelling, and punctuation that were not noted in checking the note before signing. HPI Consult Data Date of Consult: 08/30/24 HPI Narrative Reason for Consultation: Hepatic encephalopathy, hypotension HPI Narrative: The patient is a 59-year-old male, with a history as outlined below, who presented to the emergency department on August 29 secondary to back pain related to a recent fall and generalized weakness. The patient has a self-reported history of Harris cirrhosis and was previously under the care of a specialist in [place], until his relocation here approximately 3 weeks ago. The patient does have a prior tobacco abuse history, having quit completely 4 months ago. The patient was evaluated in the ED on August 22 following a mechanical fall. His workup in the emergency department was unremarkable. He was subsequently discharged home on topical lidocaine. On presentation to the emergency department, the patient was documented to be afebrile but was hypotensive with a blood pressure of 85/55 mmHg. He was, nonetheless, maintaining appropriate oxygen saturations on room air. Initial laboratory evaluation revealed a white blood cell count of 12,000 with a hemoglobin of 11.2 g/dL and platelet count of 87,000. INR was noted to be 1.7. Chemistry profile was notable for a sodium of 134 with a bicarbonate of 18 and creatinine of 5.63. Total bilirubin was increased to 1.4. AST and ALT were within normal limits. Alkaline phosphatase was increased at 172. Ammonia level was elevated at 99. Lipase was normal. Head CT was unremarkable. CT imaging of the cervical, thoracic and lumbar spines demonstrated degenerative changes without any acute findings. Chest x-ray was unrevealing. [facility] Medical History Hyperbilirubinemia Liver cirrhosis secondary to HARRIS (nonalcoholic steatohepatitis) HLD (hyperlipidemia) HTN (hypertension) Thrombocytopenia Chronic anemia Former tobacco use Diabetes mellitus, type 2 ABBY on CPAP Back pain Home Medications ?Medication ?Instructions ?Recorded ?Last Taken ?Type lidocaine 5 % topical patch 3 patch topical DAILY #15 ea 08/21/24 08/28/24 Rx (Lidoderm) cyclobenzaprine 10 mg tablet 10 mg PO QHS 08/29/24 Unknown History folic acid 1 mg tablet 1,000 mcg PO DAILY 08/29/24 Unknown History Allergy/AdvReac Type Severity Reaction Status Date / Time No Known Allergies Allergy Verified 08/29/24 13:52 Family History (Updated 08/29/24 @ 23:[address] Maria Guadalupe Shore MD) Mother Heart disease Hypertension CAD (coronary artery disease) Myocardial infarction Father Hypertension Heart disease Heart failure Surgical History History of tonsillectomy and adenoidectomy Surgical History no surgical history Social History (Updated 08/29/24 @ 23:[address] Maria Guadalupe Shore MD) household members: significant other Smoking Status: Former smoker how long ago did patient quit smoking: Quit ~ 3-4 months prior (fall 2023), smoked 1.5 ppd since teen until quit. alcohol intake: never substance use type: does not use ROS ROS Narrative 10 systems were reviewed with pertinent positives as noted in the HPI above. Physical Exam Const alert and no apparent distress Constitutional Narrative: Rather unkempt and jaundiced in appearance. General Appearance: cooperative HEENT normocephalic and head/scalp atraumatic Eyes PERRL and EOMs intact bilaterally Neck supple General: trachea midline Chest inspection of chest normal Resp normal respiratory effort Auscultation: Negative for rales, rhonchi or wheezes Cardio regular rate and regular rhythm GI normal to inspection, nondistended, normoactive bowel sounds Extremity no clubbing, cyanosis or edema Skin no rashes or lesions noted Neuro CN's II-XII intact bilaterally, moves all extremities and no focal motor deficits Psych cooperative and affect normal Lab / Micro Data 08/30/24 09:05 08/30/24 04:28 Labs: Laboratory Results - last 24 hr 08/29/24 14:56: WBC 11.9 H, RBC 3.86 L, Hgb 11.2 L, Hct 32.2 L, MCV 83.4, MCH 29.0, MCHC 34.8, RDW Std Deviation 46.8 H, RDW Coeff of Francis 15.4 H, Plt Count 87 L, MPV 12.5 H, Immature Gran % (Auto) 1.000 H, Neut % (Auto) 76.6 H, Lymph % (Auto) 8.7 L, [place] % (Auto) 10.4 H, Eos % (Auto) 2.9, Baso % (Auto) 0.4, Absolute Neuts (auto) 9.1 H, Absolute Lymphs (auto) 1.03, Nucleated RBC % 0, PT 20.0 H, INR 1.7, APTT 40.9 H, Sodium 134 L, Potassium 3.9, Chloride 104, Carbon Dioxide 18.0 L, Anion Gap 12, BUN 76 H, Creatinine 5.63 H, Est GFR (MDRD) Af Amer 13 L, Est GFR (MDRD) Non-Af 11 L, BUN/Creatinine Ratio 13.5, Glucose 257 H, Calcium 8.5, Phosphorus 4.9, Magnesium 2.7 H, Total Bilirubin 1.40 H, AST 32, ALT 26, Alkaline Phosphatase 172 H, Total Protein 6.2 L, Albumin 1.9 L, Globulin 4.3 H, Albumin/Globulin Ratio 0.4 L 08/29/24 15:30: Ammonia 99.0 H, Lipase 26 08/29/24 19:40: Urine Color Yellow, Urine Clarity Clear, Urine pH 6.0, Ur Specific [place] 1.015, Urine Protein 30 H, Urine Glucose (UA) 50 H, Urine Ketones Negative, Urine Occult Blood 150 H, Urine Nitrite Negative, Urine Bilirubin 1 H, Urine Urobilinogen 1 H, Ur Leukocyte Esterase 500 H, Urine RBC 5-10 SEEN, Urine WBC 10-25 SEEN, Ur Squamous Epith Cells 0 SEEN, Urine Bacteria RARE, Urine Mucus 1+, Ur Random Sodium 30, Urine Creatinine 173.00 08/29/24 23:51: POC Glucose 167 H 08/30/24 04:28: WBC 10.0, RBC 3.29 L, Hgb 9.5 L, Hct 27.9 L, MCV 84.8, MCH 28.9, MCHC 34.1, RDW Std Deviation 48.4 H, RDW Coeff of Francis 15.6 H, Plt Count 67 L, MPV 12.6 H, Immature Gran % (Auto) 0.700, Neut % (Auto) 76.4 H, Lymph % (Auto) 10.1 L, [place] % (Auto) 9.3, Eos % (Auto) 3.1, Baso % (Auto) 0.4, Absolute Neuts (auto) 7.6, Absolute Lymphs (auto) 1.01, Nucleated RBC % 0, Sodium 133 L, Potassium 3.4 L, Chloride 105, Carbon Dioxide 15.0 L, Anion Gap 13, BUN 73 H, Creatinine 5.37 H, Estim Creat Clear Calc 17.63, Est GFR (MDRD) Af Amer 14 L, Est GFR (MDRD) Non-Af 12 L, BUN/Creatinine Ratio 13.6, Glucose 267 H, Calcium 8.0 L, Iron 62 L, TIBC 183 L, Iron Saturation 33.9, Ferritin 85, Total Bilirubin 1.30 H, Direct Bilirubin 0.83 H, AST 22, ALT 19, Alkaline Phosphatase 143 H, Ammonia 64.0 H, Total Protein 5.3 L, Albumin 1.9 L, Globulin 3.4 08/30/24 06:25: POC Glucose 259 H Imaging Radiology Impression Brain CT 08/29/24 15:25 IMPRESSION: No acute intracranial findings. Electronically Signed: Nabor Acevedo MD at 17:51 EST , Cervical Spine CT 08/29/24 15:25 IMPRESSION: Degenerative changes. No acute fracture of the cervical spine. Electronically Signed: Nabor Acevedo MD at 17:58 EST , Lumbar Spine CT 08/29/24 15:25 IMPRESSION: No acute bony abnormality. Electronically Signed: Nabor Acevedo MD at 18:45 EST , Thoracic Spine CT 08/29/24 15:25 IMPRESSION: No acute bony abnormality. Electronically Signed: Nabor Acevedo MD at 18:17 EST , Chest X-Ray 08/29/24 16:55 IMPRESSION: No radiographic evidence of acute cardiopulmonary disease. Electronically Signed: Nabor Acevedo MD at 18:02 EST , Charges/Coding Visit Charges Inpatient E&M: 54975 Init Hosp L3
[2024-08-30] MEDS: Lidocaine 5% Patch 3 PATCH TOPICAL (08:26)
[2024-08-30 08:38] LABS: Hemoglobin A1c 7.9 % (3.8-5.6)
[2024-08-30] MEDS: Norepinephrine 8 MG in 0.9% Normal Saline (250mL Bag) 242 ML 9.4 MG CONT INF (09:08)
[2024-08-30 09:11] LABS: Hematocrit 28.5 % (40-54); Hemoglobin 9.8 g/dL (13.0-16.5)
[2024-08-30] MEDS: Pantoprazole Sodium 40 MG Tablet PO ×3 (09:59→22:05)
--- NOTE | 2024-08-30 10:05 | CASEMGMT ---
RN SAUL Assessment Face to Face with patient for initial transition planning/care coordination assessment. RN SAUL introduced self and role at [facility], pt voices understanding. Pt is A&Ox4 and is resting comfortably in bed and is calm. Care providers, pharmacy, and demographics verified. Admitting dx: Hepatic Encephalopathy, ISABEL, Hypotension LACE Strata: 1 PCP: No PCP. Pt recently moved from [place]. PCP list given to the pt at this time Specialists: Denies Preferred Pharmacy: [facility] Insurance: [employer] ([place] of [place]) Prescription Benefit: Pt reports that he has Rx benefits and that they help with most of his medications. However, pts current insurance is from [place] of [place]. E-Mail sent to [facility] Equine Dentist for better insight on this situation LNOK: Mary Robertson (SO), Leopoldo (Son) Living Arrangements: Pt states that he moved from [place] x1 week ago. Pt reports that he lives with his SO, son, son's GF, and other family in a 2 story home with a flat entrance. Pt states that his bedroom is upstairs and that the bathroom is on the main level. Pt states that he has troubles with the steps. Pt states that his son is able to help him at home. Pt states that his SO is not as she has back issues. ADLs/IADLs: Pt requires some assistance, especially with steps. See above. Transportation: Pt does not drive. Pt states that his family does not currently have any working vehicles and that he will needs assistance with transportation. [facility] staff to follow. DME: Pt states that he has a CPAP but does not bleed in additional oxygen. Pt is currently 97% on RA. Pt also reports that he has a functioning BGM with sufficient supplies. Pt also states that he has a cane, FWW, and shower chair. Pt has been trying to get a rollator but states that his insurance has been declining coverage for this. HHC/SNF: Reports HH and SNF Hx in [place] Pt?s goal: Return to [place]LO[place] Plan: Anticipate home with HH. Follow for potential SNF needs but pt does decline this need initially. Follow for Rx and insurance needs/benefits. Follow for transportation needs. At this time, the pt is currently denying the need to review a list of HH agencies and states that he would prefer to go through [facility] HH. This RN CM will make the referral once appropriate. Current 6-click score is 18 and PT/OT are ordered and pending. Per ICU rounds, PT is to be held today d/t the pt pain as well as the pt requiring Levophed. Pt's goal is to return to his PLOF and return home and states that his son will be able to provide enough assistance. Pt denies further concerns at this time. CM/SW to follow. Tayla Galloway RN, CM
[2024-08-30] MEDS: Insulin Glargine-YFGN 100 UNIT/ML Pen 10 UNIT SC ×2 (10:08→21:40)
[2024-08-30] MEDS: Lactated Ringers 500 ML 999 ML IV (10:21)
[2024-08-30] MEDS: 0.9% Saline Lock 10 ML Syringe IV ×8 (10:23→22:37)
[2024-08-30 10:30] LABS: Bedside Glucose 213 mg/dL (74-106)
--- NOTE | 2024-08-30 11:10 | CASEMGMT ---
Nicol (Pt Principal Gifts Officer) states that the pt is active with [place] [employer]. Nicol reports that she can assist the pt with applying for [place] [employer]. Will continue to follow. TC to Josy at [facility]. is unable to accept as the pt does not have a PCP and [facility] cannot accept AV pts at this time. CM to continue to follow.
[2024-08-30 11:41] LABS: Bedside Glucose 208 mg/dL (74-106)
[2024-08-30] MEDS: Albumin Human 25% (100 mL) 25 GM/100 ML BAG IV (12:38)
--- NOTE | 2024-08-30 13:22 | NURSING ---
Medical Sales Consultant faxed to obtain medical records
[2024-08-30] MEDS: TITRATION PARAMETER CHANGE 1 EACH IV (14:22)
[2024-08-30] MEDS: Acetaminophen 325 MG Tablet 650 MG PO ×2 (16:08→20:41)
[2024-08-30 16:47] LABS: Bedside Glucose 312 mg/dL (74-106)
--- NOTE | 2024-08-30 16:52 | PN.HOSP_ITS ---
Reason for Visit Reason for Visit: Diagnoses Hypotension, unspecified (08/29/24) Hepatic encephalopathy (08/29/24) Acute kidney failure, unspecified (08/29/24) Subjective Subjective Patient was seen and examined today, he is alert but is somewhat of a poor informant, he does not appear confused. I got labs from his PCPs office today, his creatinine in June was 0.9. I talked briefly with nephrology about his care today. Objective Data Objective Data Vital Signs: Vital Signs Temp Pulse Resp BP Pulse Ox O2 Del Method 98.6 F 66 20 H 107/65 98 Room Air 08/30/24 16:00 08/30/24 16:15 08/30/24 16:15 08/30/24 16:15 08/30/24 16:15 08/30/24 16:15 Oxygen Delivery Method Room Air Weight: 101.8 kg Body Mass Index (BMI) 33.1 Intake & Output: Intake and Output for Last 24 Hours 08/28/24 08/29/24 08/30/24 23:59 23:59 23:59 Intake Total 100 / 100 3044.66 / 3044.66 Output Total 1025 / 1025 Balance 100 / 100 2019.66 / 2019.66 Lab / Micro Data 08/30/24 09:05 08/30/24 04:28 Labs: Laboratory Results - last 24 hr 08/29/24 14:56: Phosphorus 4.9, Magnesium 2.7 H 08/29/24 19:40: Urine Color Yellow, Urine Clarity Clear, Urine pH 6.0, Ur Specific [place] 1.015, Urine Protein 30 H, Urine Glucose (UA) 50 H, Urine Ketones Negative, Urine Occult Blood 150 H, Urine Nitrite Negative, Urine Bilirubin 1 H, Urine Urobilinogen 1 H, Ur Leukocyte Esterase 500 H, Urine RBC 5- 10 SEEN, Urine WBC 10-25 SEEN, Ur Squamous Epith Cells 0 SEEN, Urine Bacteria RARE, Urine Mucus 1+, Ur Random Sodium 30, Urine Creatinine 173.00 08/29/24 23:51: POC Glucose 167 H 08/30/24 04:28: WBC 10.0, RBC 3.29 L, Hgb 9.5 L, Hct 27.9 L, MCV 84.8, MCH 28.9, MCHC 34.1, RDW Std Deviation 48.4 H, RDW Coeff of Francis 15.6 H, Plt Count 67 L, M PV 12.6 H, Immature Gran % (Auto) 0.700, Neut % (Auto) 76.4 H, Lymph % (Auto) 10.1 L, [place] % (Auto) 9.3, Eos % (Auto) 3.1, Baso % (Auto) 0.4, Absolute Neuts (auto) 7.6, Absolute Lymphs (auto) 1.01, Nucleated RBC % 0, Sodium 133 L, P otassium 3.4 L, Chloride 105, Carbon Dioxide 15.0 L, Anion Gap 13, BUN 73 H, C reatinine 5.37 H, Estim Creat Clear Calc 17.63, Est GFR (MDRD) Af Amer 14 L, Est GFR (MDRD) Non-Af 12 L, BUN/Creatinine Ratio 13.6, Glucose 267 H, Hemoglobin A1c 7.9 H, Calcium 8.0 L, Iron 62 L, TIBC 183 L, Iron Saturation 33.9, Ferritin 85, Total Bilirubin 1.30 H, Direct Bilirubin 0.83 H, AST 22, ALT 19, Alkaline Phosphatase 143 H, Ammonia 64.0 H, Total Protein 5.3 L, Albumin 1.9 L, Globulin 3.4 08/30/24 06:25: POC Glucose 259 H 08/30/24 09:05: Hgb 9.8 L, Hct 28.5 L 08/30/24 10:03: POC Glucose 213 H 08/30/24 11:23: POC Glucose 208 H 08/30/24 16:29: POC Glucose 312 H Micro: Microbiology 08/29/24 19:40 Urine Catheter - Catheter Urine Culture - Preliminary Culture exhibits no growth. Radiography Diagnostic Testing: Radiology Impression Brain CT 08/29/24 15:25 IMPRESSION: No acute intracranial findings. Electronically Signed: Nabor Acevedo MD at 17:51 EST Reading Location ID and State: [facility] / [place] Tel , Service support , Cervical Spine CT 08/29/24 15:25 IMPRESSION: Degenerative changes. No acute fracture of the cervical spine. Electronically Signed: Nabor Acevedo MD at 17:58 EST , Lumbar Spine CT 08/29/24 15:25 IMPRESSION: No acute bony abnormality. Electronically Signed: Nabor Acevedo MD at 18:45 EST , Thoracic Spine CT 08/29/24 15:25 IMPRESSION: No acute bony abnormality. Electronically Signed: Nabor Acevedo MD at 18:17 EST , Chest X-Ray 08/29/24 16:55 IMPRESSION: No radiographic evidence of acute cardiopulmonary disease. Electronically Signed: Nabor Acevedo MD at 18:02 EST , Physical Exam Const alert, oriented x3 and no apparent distress General Appearance: cooperative, well kempt and well developed Orientation / Consciousness: awake, oriented to person, oriented to place and oriented to time HEENT normocephalic, head/scalp atraumatic and moist oral mucous membranes Eyes PERRL, EOMs intact bilaterally and conjunctivae normal Neck supple, no JVD, thyroid normal and no carotid bruits General: trachea midline Resp normal respiratory effort, no retractions, no use of accessory muscles and clear to auscultation bilaterally Auscultation: Negative for rales, rhonchi or wheezes Cardio regular rate, regular rhythm, S1 normal heart sound, S2 normal heart sound, no murmurs, no rub and no gallops GI normal to inspection, nondistended, normoactive bowel sounds, soft to palpation, non-tender and non-distended Extremity no clubbing, cyanosis or edema Skin no rashes or lesions noted General Skin Exam: no breakdown Neuro oriented x3, CN's II-XII intact bilaterally, moves all extremities, no focal motor deficits and no sensory deficits noted Sensorium / Orientation: awake and alert Speech: speech normal Psych affect normal Assessment & Plan Assessment/Plan (1) ISABEL (acute kidney injury): PLAN: Plan 1. Acute kidney injury-nephrology is participating in his care, patient will receive IV fluids and labs will be monitored #2 hepatic encephalopathy-this appears to be resolved at this time, patient will remain on his current medications #3 cirrhosis-believed to be nonalcohol in nature-complicates care, management, recovery, and prognosis #4 hypotension-etiology unclear, blood pressure will be monitored, patient is not requiring any pressors at this time #5 type 2 diabetes-blood sugars will be monitored, sliding scale insulin will be administered as indicated Total clinical time spent by myself addressing patient's medical issues, reviewing all of his data, and collaborating with patient's care team: 35 minutes Charges/Coding Visit Charges Inpatient E&M: 12111 Subs Hosp L2
[2024-08-30] MEDS: 0.9% Normal Saline (1000mL) 1,000 ML 100 ML IV (17:57)
--- NOTE | 2024-08-30 18:02 | PCM.CONS.R ---
Assessment & Plan Assessment/Plan (1) ISABEL (acute kidney injury): PLAN: normal baseline cr as of June 2024 UA with trace protein fena 0.7 renal US pending Cirrhosis. presumably HARRIS related. says he has not been on a transplant list. ? with low Fena. differential includes prerenal vs HRS received fluids currently on levophed which will help with HRS urine output is present will give fluids for today dw hospitalist HPI Consult Data Date of Consult: 08/30/24 HPI Narrative Reason for Consultation: ISABEL HPI Narrative: FRANKLIN ARCHULETA, is a 59 M who presents to the hospital with back pain. nephrology consulted in view of ISABEL. he says he has recently moved here from [facility] since most of his family is here. was diagnosed with cirrhosis, says started out as fatty liver and later cirrhosis. required paracentesis. no prior kidney disease. denies any obstructive symptoms no hematuria [facility] Medical History Hyperbilirubinemia Liver cirrhosis secondary to HARRIS (nonalcoholic steatohepatitis) HLD (hyperlipidemia) HTN (hypertension) Thrombocytopenia Chronic anemia Former tobacco use Diabetes mellitus, type 2 ABBY on CPAP Back pain Home Medications ?Medication ?Instructions ?Recorded ?Last Taken ?Type lidocaine 5 % topical patch 3 patch topical DAILY #15 ea 08/21/24 08/28/24 Rx (Lidoderm) cyclobenzaprine 10 mg tablet 10 mg PO QHS 08/29/24 Unknown History folic acid 1 mg tablet 1,000 mcg PO DAILY 08/29/24 Unknown History Allergy/AdvReac Type Severity Reaction Status Date / Time No Known Allergies Allergy Verified 08/29/24 13:52 Family History (Updated 08/29/24 @ 23:[address] Maria Guadalupe Shore MD) Mother Heart disease Hypertension CAD (coronary artery disease) Myocardial infarction Father Hypertension Heart disease Heart failure Surgical History History of tonsillectomy and adenoidectomy Surgical History no surgical history Social History (Updated 08/29/24 @ 23:[address] Maria Guadalupe Shore MD) household members: significant other Smoking Status: Former smoker how long ago did patient quit smoking: Quit ~ 3-4 months prior (fall 2023), smoked 1.5 ppd since teen until quit. alcohol intake: never substance use type: does not use ROS ROS Narrative negative except above Physical Exam Narrative Alert awake no obvious distress no pallor no icterus no JVD s1s2 no murmurs lungs clear abdomen soft no organomegaly no edema no cyanosis Lab / Micro Data 08/30/24 09:05 08/30/24 04:28 Labs: Laboratory Results - last 24 hr 08/29/24 14:56: Phosphorus 4.9, Magnesium 2.7 H 08/29/24 19:40: Urine Color Yellow, Urine Clarity Clear, Urine pH 6.0, Ur Specific [place] 1.015, Urine Protein 30 H, Urine Glucose (UA) 50 H, Urine Ketones Negative, Urine Occult Blood 150 H, Urine Nitrite Negative, Urine Bilirubin 1 H, Urine Urobilinogen 1 H, Ur Leukocyte Esterase 500 H, Urine RBC 5-10 SEEN, Urine WBC 10-25 SEEN, Ur Squamous Epith Cells 0 SEEN, Urine Bacteria RARE, Urine Mucus 1+, Ur Random Sodium 30, Urine Creatinine 173.00 08/29/24 23:51: POC Glucose 167 H 08/30/24 04:28: WBC 10.0, RBC 3.29 L, Hgb 9.5 L, Hct 27.9 L, MCV 84.8, MCH 28.9, MCHC 34.1, RDW Std Deviation 48.4 H, RDW Coeff of Francis 15.6 H, Plt Count 67 L, MPV 12.6 H, Immature Gran % (Auto) 0.700, Neut % (Auto) 76.4 H, Lymph % (Auto) 10.1 L, [place] % (Auto) 9.3, Eos % (Auto) 3.1, Baso % (Auto) 0.4, Absolute Neuts (auto) 7.6, Absolute Lymphs (auto) 1.01, Nucleated RBC % 0, Sodium 133 L, Potassium 3.4 L, Chloride 105, Carbon Dioxide 15.0 L, Anion Gap 13, BUN 73 H, Creatinine 5.37 H, Estim Creat Clear Calc 17.63, Est GFR (MDRD) Af Amer 14 L, Est GFR (MDRD) Non-Af 12 L, BUN/Creatinine Ratio 13.6, Glucose 267 H, Hemoglobin A1c 7.9 H, Calcium 8.0 L, Iron 62 L, TIBC 183 L, Iron Saturation 33.9, Ferritin 85, Total Bilirubin 1.30 H, Direct Bilirubin 0.83 H, AST 22, ALT 19, Alkaline Phosphatase 143 H, Ammonia 64.0 H, Total Protein 5.3 L, Albumin 1.9 L, Globulin 3.4 08/30/24 06:25: POC Glucose 259 H 08/30/24 09:05: Hgb 9.8 L, Hct 28.5 L 08/30/24 10:03: POC Glucose 213 H 08/30/24 11:23: POC Glucose 208 H 08/30/24 16:29: POC Glucose 312 H Micro: Microbiology 08/29/24 19:40 Urine Catheter - Catheter Urine Culture - Preliminary Culture exhibits no growth. Imaging Radiology Impression Lumbar Spine CT 08/29/24 15:25 IMPRESSION: No acute bony abnormality. Electronically Signed: Nabor Acevedo MD at 18:45 EST , Thoracic Spine CT 08/29/24 15:25 IMPRESSION: No acute bony abnormality. Electronically Signed: Nabor Acevedo MD at 18:17 EST , Chest X-Ray 08/29/24 16:55 IMPRESSION: No radiographic evidence of acute cardiopulmonary disease. Electronically Signed: Nabor Acevedo MD at 18:02 EST ,
--- NOTE | 2024-08-30 18:09 | CON.PCM.GI_ITS ---
HPI Consult Data Date of Consult: 08/30/24 HPI Narrative HPI Narrative: FRANKLIN ARCHULETA, is a 59 M who presented to the [facility] ED on 08/29/24 with generalized fatigue, malaise with ongoing significant lumbar back pain reported that likely his ammonia level is elevated. The patient does not have a local liver doctor. He recently moved here from [place]. 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 He was noted to have a blood pressure of 77/47 with a MAP of 57 with heart rate 59, CBC with WBC 11.9, hemoglobin 11.2, MCV 83.4, platelet 87 with left shift, coags with PT 20, PTT 40.9, INR 1.7 CMP with sodium 134, come back side 18, anion gap 12, BUN/creatinine 76/5.63, glucose 257 T. bili 1.40, AST/ALT 32/26, alk phos 172, ammonia level 99, lipase 26 urinalysis with specific cavity 1.015, protein 30, glucose 50, negative ketone, occult blood 150, negative nitrite, leukocyte esterase 500 with urine WBCs 10-25 with rare urine bacteria, CT brain with no acute intracranial findings, CT cervical spine with degenerative changes with no acute fracture, CT lumbar spine with no acute bony abnormality, CT thoracic spine with no acute bony abnormality, chest x-ray with no acute cardiopulmonary findings, EKG with sinus bradycardia with no acute evidence of ischemia. In the ED patient ministered morphine 2 mg IV x 1 as well as albumin 25 g IV x 1. 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) HLD (hyperlipidemia) HTN (hypertension) Thrombocytopenia Chronic anemia Former tobacco use Diabetes mellitus, type 2 ABBY on CPAP Back pain Home Medications ?Medication ?Instructions ?Recorded ?Last Taken ?Type lidocaine 5 % topical patch 3 patch topical DAILY #15 ea 08/21/24 08/28/24 Rx (Lidoderm) cyclobenzaprine 10 mg tablet 10 mg PO QHS 08/29/24 Unknown History folic acid 1 mg tablet 1,000 mcg PO DAILY 08/29/24 Unknown History Allergy/AdvReac Type Severity Reaction Status Date / Time No Known Allergies Allergy Verified 08/29/24 13:52 Family History Mother Heart disease Hypertension CAD (coronary artery disease) Myocardial infarction Father Hypertension Heart disease Heart failure Surgical History History of tonsillectomy and adenoidectomy Surgical History no surgical history Social History household members: significant other Smoking Status: Former smoker how long ago did patient quit smoking: Quit ~ 3-4 months prior (fall 2023), smoked 1.5 ppd since teen until quit. alcohol intake: never substance use type: does not use ROS Constitutional Constitutional: Denies fatigue, fever(s), poor appetite, weight gain or weight loss Gastrointestinal Gastrointestinal: Denies belching, bloating, change in bowel habits, change in stool character, chewing difficulty, coffee ground emesis, constipation, cramping, diarrhea, dyspepsia, dysphagia, early satiety, excessive flatus, fecal incontinence, heartburn, hematemesis, hematochezia, hemorrhoids, loose stools, melena, nausea, odynophagia, rectal bleeding, tenesmus, vomiting or weight changes Physical Exam Const alert, oriented x3, no apparent distress and healthy appearing General Appearance: cooperative GI normal to inspection, nondistended, normoactive bowel sounds, soft to palpation, non-tender and non-distended Percussion: normal to percussion Rectal Exam: deferred Lab / Micro Data 08/30/24 09:05 08/30/24 04:28 Labs: Laboratory Results - last 24 hr 08/29/24 14:56: Phosphorus 4.9, Magnesium 2.7 H 08/29/24 19:40: Urine Color Yellow, Urine Clarity Clear, Urine pH 6.0, Ur Specific [place] 1.015, Urine Protein 30 H, Urine Glucose (UA) 50 H, Urine Ketones Negative, Urine Occult Blood 150 H, Urine Nitrite Negative, Urine Bilirubin 1 H, Urine Urobilinogen 1 H, Ur Leukocyte Esterase 500 H, Urine RBC 5- 10 SEEN, Urine WBC 10-25 SEEN, Ur Squamous Epith Cells 0 SEEN, Urine Bacteria RARE, Urine Mucus 1+, Ur Random Sodium 30, Urine Creatinine 173.00 08/29/24 23:51: POC Glucose 167 H 08/30/24 04:28: WBC 10.0, RBC 3.29 L, Hgb 9.5 L, Hct 27.9 L, MCV 84.8, MCH 28.9, MCHC 34.1, RDW Std Deviation 48.4 H, RDW Coeff of Francis 15.6 H, Plt Count 67 L, M PV 12.6 H, Immature Gran % (Auto) 0.700, Neut % (Auto) 76.4 H, Lymph % (Auto) 10.1 L, [place] % (Auto) 9.3, Eos % (Auto) 3.1, Baso % (Auto) 0.4, Absolute Neuts (auto) 7.6, Absolute Lymphs (auto) 1.01, Nucleated RBC % 0, Sodium 133 L, P otassium 3.4 L, Chloride 105, Carbon Dioxide 15.0 L, Anion Gap 13, BUN 73 H, C reatinine 5.37 H, Estim Creat Clear Calc 17.63, Est GFR (MDRD) Af Amer 14 L, Est GFR (MDRD) Non-Af 12 L, BUN/Creatinine Ratio 13.6, Glucose 267 H, Hemoglobin A1c 7.9 H, Calcium 8.0 L, Iron 62 L, TIBC 183 L, Iron Saturation 33.9, Ferritin 85, Total Bilirubin 1.30 H, Direct Bilirubin 0.83 H, AST 22, ALT 19, Alkaline Phosphatase 143 H, Ammonia 64.0 H, Total Protein 5.3 L, Albumin 1.9 L, Globulin 3.4 08/30/24 06:25: POC Glucose 259 H 08/30/24 09:05: Hgb 9.8 L, Hct 28.5 L 08/30/24 10:03: POC Glucose 213 H 08/30/24 11:23: POC Glucose 208 H 08/30/24 16:29: POC Glucose 312 H Micro: Microbiology 08/29/24 19:40 Urine Catheter - Catheter Urine Culture - Preliminary Culture exhibits no growth. Imaging Radiology Impression Lumbar Spine CT 08/29/24 15:25 IMPRESSION: No acute bony abnormality. Electronically Signed: Nabor Acevedo MD at 18:45 EST , Thoracic Spine CT 08/29/24 15:25 IMPRESSION: No acute bony abnormality. Electronically Signed: Nabor Acevedo MD at 18:17 EST Reading Location ID and State: [facility] / [place] Tel , Service support , Assessment & Plan Assessment/Plan (1) Hepatic encephalopathy: PLAN: Plan The patient is a 59 y/o M status post fall. He has a history of Boyer cirrhosis likely secondary to uncontrolled diabetes mellitus. He has a meld of 28 which carries a 20% mortality in the next 90 days. He is also a child Gonzalez class C due to his anemia, possible ascites and acute kidney injury. He was also discovered to have hypotension, anemia, thrombocytopenia. Hypotension likely secondary to splanchnic vasodilation in the setting of cirrhosis. Agree with volume expansion and pressors at this time. Agree with midodrine therapy. His hypotension does increase the risk of acute kidney injury secondary to ATN. Apparently his kidney function was normal. The differential diagnosis for his acute kidney injury does include ATN, prerenal azotemia, hepatorenal syndrome. Typically the criteria for hepatorenal syndrome is a cirrhotic with ascites, serum creatinine greater than 1.5, absence of shock, absence of hypobulimia (meaning no improvement of renal function after volume expansion and removing offending agents ), absence of intrinsic renal disease and no administration of nephrotoxic drugs. Awaiting his urine sodium. He is currently being seen by nephrology. He is on albumin, midodrine and pressor therapy. He did have a mild improvement in his creatinine from 5.8-5.3. Strict I's and O's. He will need renal ultrasound along with liver ultrasound. Decompensated cirrhosis secondary to unknown cause. He does have mild hepatic encephalopathy. Recommend Xifaxan 550 mg p.o. twice daily and lactulose 30 cc 3 times a day. Ultrasound to see if there is any ascites. Recommend ceftriaxone 1 g/day. Autoimmune liver disease workup along with checking labs for viral hepatitis. Thrombocytopenia, suspect chronic, likely secondary to underlying liver disease: Admission platelets 87, no comparison, will continue to trend CMP, records requested. Charges/Coding Visit Charges Inpatient E&M: 08653 Init Hosp L3
[2024-08-30] MEDS: rifAXIMin 550 MG Tablet PO (21:42)
[2024-08-30] MEDS: Mag Hydrox/Al Hydrox/Simeth 30 ML UDC PO (23:24)
[2024-08-31] VITALS (14 sets, daily range): BP systolic 91–120; BP diastolic 50–71; PULSE 62–70; RESP 14–22; TEMP 36.4–36.7; O2SAT 94–98; BMI 33.2
[2024-08-31] MEDS: Acetaminophen 325 MG Tablet 650 MG PO ×4 (01:07→21:28)
[2024-08-31 01:48] LABS: Bedside Glucose 273 mg/dL (74-106)
[2024-08-31] MEDS: 0.9% Normal Saline (1000mL) 1,000 ML 100 ML IV (03:57)
[2024-08-31] MEDS: 0.9% Saline Lock 10 ML Syringe IV (04:02)
[2024-08-31 04:25] LABS: Absolute Neutrophil Count 8.6 X10^3/uL (2.0-7.7); Basophil# 0.03 X10^3/uL; Basophil% 0.3 % (0-1); Eosinophil# 0.21 X10^3/uL; Hematocrit 26.6 % (40-54); Hemoglobin 9.2 g/dL (13.0-16.5); Lymphocyte % 7.7 % (19-41); Mean Corp Hgb Conc 34.6 g/dL (32-36); Mean Corpuscular Hgb 28.8 pg (27.0-32.0); Mean Corpuscular Volume 83.4 fL (80-94); Mean Platelet Vol. 13.1 fl (6.2-12.0); Monocyte# 0.69 X10^3/uL; Monocyte% 6.6 % (0-10); NRBC Flagged by Analyzer 0 % (0-5); Neutrophil # 8.56 X10^3/uL (2.7-7.7); Neutrophil % 82.2 % (47-70); POSITIVE COUNT YES; Platelet Count 56 K/mm3 (150-450); RBC Distribution Width CV 15.4 % (11.6-14.6); RBC Distribution Width SD 46.5 fl (35.1-43.9); Red Blood Count 3.19 M/mm3 (4.6-6.2); White Blood Count 10.4 K/mm3 (4.4-11.0)
[2024-08-31 04:36] LABS: Anion Gap 10 (5-15); BUN 59 mg/dL (7-18); BUN/Creat Ratio 13.5 RATIO (10-20); Calcium,Total 8.4 mg/dL (8.5-10.1); Chloride 107 mmol/L (98-107); Creatinine, Serum 4.36 mg/dL (0.70-1.30); EST Glomerular Filtration Rate 15 mL/min (>60); Est Glom Filt Rate - Afr Amer 18 mL/min (>60); Estimated Creatinine Clearance 21.72 ml/min; Glucose 241 mg/dL (74-106); Potassium 3.5 mmol/L (3.5-5.1); Sodium Level 135 mmol/L (136-145)
[2024-08-31] MEDS: Lactulose 20 GM/30 ML UDC PO ×3 (06:04→21:30)
[2024-08-31] MEDS: Insulin Lispro 100 UNIT/ML INSULN.PEN SC ×4 (06:08→21:41)
[2024-08-31 06:32] LABS: Bedside Glucose 193 mg/dL (74-106)
--- NOTE | 2024-08-31 07:38 | PN.CC_ITS ---
Assessment & Plan Assessment/Plan (1) Hepatic encephalopathy: (2) Hypotension: (3) ISABEL (acute kidney injury): PLAN: Plan RECOMMENDATIONS: 1. Continue gentle IV fluid hydration. 2. Continue scheduled midodrine. 3. Continue lactulose and rifaximin. 4. Liver ultrasound was pending. 5. Additional medical management per gastroenterology and nephrology. 6. Encourage incentive spirometer use and mobilize patient as tolerated. IMPRESSIONS: 1. Hypotension in the setting of decompensated cirrhosis Clinical concern for nonhemorrhagic hypovolemic shock in the setting of cirrhosis. No definitive source of infection has been identified. Continue gentle IV fluid hydration as ordered. The patient has been weaned from Levophed and remains hemodynamically stable on scheduled midodrine, which will be continued without change. Continue lactulose and rifaximin. Additional recommendations per gastroenterology. 2. Acute kidney injury Improving. Clinical concern for prerenal etiology. In light of the patient's liver history, hepatorenal syndrome would be a possibility. Continue current supportive care with gentle IV fluid hydration. Nephrology is currently following to assist with medical management. 3. History of HARRIS cirrhosis/diabetes mellitus/hyperlipidemia/prior tobacco dependency Complicates care, management, recovery and prognosis. Continue supportive measures as noted above. This note was generated with [employer] dictation software. It may contain incorrect words, spelling, and punctuation that were not noted in checking the note before signing. Subjective Subjective The patient was seen and examined at the bedside this morning. Events from the last 24 hours have been reviewed. The patient is currently afebrile, hemodynamically stable and maintaining appropriate oxygen saturations on room air. The patient was weaned off of Levophed completely yesterday afternoon. He is currently documented to be overall net +3.4 L for the hospitalization. White blood cell count is normal. Hemoglobin is stable at 9.2 g/dL. Platelet count remains low at 56,000. Creatinine has improved to 4.36. The patient was seen in consultation by both nephrology and gastroenterology yesterday. Objective Data Objective Data The patient's most recent lab work, culture data and imaging studies have all been personally reviewed. Urine culture has not demonstrated any growth to date. Vital Signs: Vital Signs Temp Pulse Resp BP Pulse Ox O2 Del Method 97.6 F L 63 16 108/59 L 96 Room Air 08/31/24 00:00 08/31/24 06:00 08/31/24 06:00 08/31/24 06:00 08/31/24 06:00 08/31/24 06:00 Oxygen Delivery Method Room Air Weight: 225 lb 1.471 oz Body Mass Index (BMI) 33.2 Intake & Output: Intake and Output for Last 24 Hours 08/29/24 08/30/24 08/31/24 23:59 23:59 23:59 Intake Total 100 / 100 3554.66 / 3584.66 1270 / 1270 Output Total 1225 / 1225 300 / 300 Balance 100 / 100 2329.66 / 2359.66 970 / 970 Lab / Micro Data Attestation: I reviewed the patient's lab results. 08/31/24 04:00 08/31/24 04:00 Labs: Laboratory Results - last 24 hr 08/30/24 04:28: Hemoglobin A1c 7.9 H 08/30/24 09:05: Hgb 9.8 L, Hct 28.5 L 08/30/24 10:03: POC Glucose 213 H 08/30/24 11:23: POC Glucose 208 H 08/30/24 16:29: POC Glucose 312 H 08/30/24 21:35: POC Glucose 273 H 08/31/24 04:00: WBC 10.4, RBC 3.19 L, Hgb 9.2 L, Hct 26.6 L, MCV 83.4, MCH 28.8, MCHC 34.6, RDW Std Deviation 46.5 H, RDW Coeff of Francis 15.4 H, Plt Count 56 L, M PV 13.1 H, Immature Gran % (Auto) 1.200 H, Neut % (Auto) 82.2 H, Lymph % (Auto) 7.7 L, [place] % (Auto) 6.6, Eos % (Auto) 2.0, Baso % (Auto) 0.3, Absolute Neuts (auto) 8.6 H, Absolute Lymphs (auto) 0.80 L, Nucleated RBC % 0, Sodium 135 L, Potassium 3.5, Chloride 107, Carbon Dioxide 18.0 L, Anion Gap 10, BUN 59 H, C reatinine 4.36 H, Estim Creat Clear Calc 21.72, Est GFR (MDRD) Af Amer 18 L, Est GFR (MDRD) Non-Af 15 L, BUN/Creatinine Ratio 13.5, Glucose 241 H, Calcium 8.4 L 08/31/24 06:03: POC Glucose 193 H Micro: Microbiology 08/29/24 19:40 Urine Catheter - Catheter Urine Culture - Preliminary Culture exhibits no growth. Physical Exam Const alert, oriented x3 and no apparent distress Constitutional Narrative: Jaundiced in appearance. General Appearance: cooperative HEENT normocephalic and head/scalp atraumatic Eyes PERRL and EOMs intact bilaterally Neck supple General: trachea midline Chest inspection of chest normal Resp normal respiratory effort Auscultation: Negative for rales, rhonchi or wheezes Cardio regular rate and regular rhythm GI normal to inspection, nondistended, normoactive bowel sounds Extremity no clubbing, cyanosis or edema Skin no rashes or lesions noted Neuro CN's II-XII intact bilaterally, moves all extremities and no focal motor deficits Psych cooperative and affect normal Charges/Coding Visit Charges Inpatient E&M: 71682 Subs Hosp L2
[2024-08-31] MEDS: Midodrine HCl 5 MG Tablet 10 MG PO ×3 (08:04→17:15)
[2024-08-31] MEDS: rifAXIMin 550 MG Tablet PO ×2 (08:04→21:31)
[2024-08-31] MEDS: Insulin Glargine-YFGN 100 UNIT/ML Pen 10 UNIT SC ×2 (08:04→21:40)
[2024-08-31] MEDS: Lidocaine 5% Patch 3 PATCH TOPICAL (08:07)
[2024-08-31] MEDS: Pantoprazole Sodium 40 MG Tablet PO ×2 (08:07→21:30)
--- NOTE | 2024-08-31 11:08 | PCM.PN.REN ---
Subjective Subjective No new complaints today. Good urine output. Creatinine is better. Objective Data Objective Data Vital Signs: Vital Signs Temp Pulse Resp BP Pulse Ox O2 Del Method 97.9 F 68 22 H 105/57 L 95 Room Air 08/31/24 08:00 08/31/24 08:00 08/31/24 08:00 08/31/24 08:00 08/31/24 08:00 08/31/24 08:00 Oxygen Delivery Method Room Air Weight: 102.1 kg Body Mass Index (BMI) 33.2 Intake & Output: Intake and Output for Last 24 Hours 08/29/24 08/30/24 08/31/24 23:59 23:59 23:59 Intake Total 100 / 100 3554.66 / 3584.66 1270 / 1270 Output Total 1225 / 1225 300 / 300 Balance 100 / 100 2329.66 / 2359.66 970 / 970 Lab / Micro Data 08/31/24 04:00 08/31/24 04:00 Labs: Laboratory Results - last 24 hr 08/30/24 11:23: POC Glucose 208 H 08/30/24 16:29: POC Glucose 312 H 08/30/24 21:35: POC Glucose 273 H 08/31/24 04:00: WBC 10.4, RBC 3.19 L, Hgb 9.2 L, Hct 26.6 L, MCV 83.4, MCH 28.8, MCHC 34.6, RDW Std Deviation 46.5 H, RDW Coeff of Francis 15.4 H, Plt Count 56 L, MPV 13.1 H, Immature Gran % (Auto) 1.200 H, Neut % (Auto) 82.2 H, Lymph % (Auto) 7.7 L, [place] % (Auto) 6.6, Eos % (Auto) 2.0, Baso % (Auto) 0.3, Absolute Neuts (auto) 8.6 H, Absolute Lymphs (auto) 0.80 L, Nucleated RBC % 0, Sodium 135 L, Potassium 3.5, Chloride 107, Carbon Dioxide 18.0 L, Anion Gap 10, BUN 59 H, Creatinine 4.36 H, Estim Creat Clear Calc 21.72, Est GFR (MDRD) Af Amer 18 L, Est GFR (MDRD) Non-Af 15 L, BUN/Creatinine Ratio 13.5, Glucose 241 H, Calcium 8.4 L 08/31/24 06:03: POC Glucose 193 H Micro: Microbiology 08/29/24 19:40 Urine Catheter - Catheter Urine Culture - Preliminary Culture exhibits no growth. Physical Exam Narrative Alert awake no obvious distress no pallor no icterus no JVD s1s2 no murmurs lungs clear abdomen soft no organomegaly no edema no cyanosis Assessment & Plan Assessment/Plan (1) ISABEL (acute kidney injury): PLAN: normal baseline cr as of June 2024 UA with trace protein fena 0.7 renal US pending Received a dose of albumin. Has been on IV fluids since yesterday. Will stop IV fluids after total of 2 L. More likely prerenal at this point. Creatinine is trending down. Cirrhosis. presumably HARRIS related. says he has not been on a transplant list. ? with low Fena. differential includes prerenal vs HRS received fluids Creatinine is better
--- NOTE | 2024-08-31 15:38 | PCM.PN.HOSP ---
Reason for Visit Reason for Visit: Diagnoses Hypotension, unspecified (08/29/24) Hepatic encephalopathy (08/29/24) Acute kidney failure, unspecified (08/29/24) Subjective Subjective Patient was seen and examined today, he remains alert and appropriate, he complains of lower back pain, he states that he feels that he fell approximately a week ago and his back has been hurting ever since. Patient's creatinine was improved today at 4.36, BMP will be rechecked tomorrow, nephrology does not feel he needs additional fluid at this time. I talked to the patient's former PCP (Dr. Messina) by phone today and he confirmed that the patient does have a diagnosis of HARRIS causing his cirrhosis. Objective Data Objective Data Vital Signs: Vital Signs Temp Pulse Resp BP Pulse Ox O2 Del Method 98.1 F 65 14 118/69 98 Room Air 08/31/24 13:59 08/31/24 13:59 08/31/24 13:59 08/31/24 13:59 08/31/24 13:59 08/31/24 13:59 Oxygen Delivery Method Room Air Weight: 102.1 kg Body Mass Index (BMI) 33.2 Intake & Output: Intake and Output for Last 24 Hours 08/29/24 08/30/24 08/31/24 23:59 23:59 23:59 Intake Total 100 / 100 3554.66 / 3584.66 2270 / 2270 Output Total 1225 / 1225 300 / 300 Balance 100 / 100 2329.66 / 2359.66 1970 / 1970 Lab / Micro Data 08/31/24 04:00 08/31/24 04:00 Labs: Laboratory Results - last 24 hr 08/30/24 16:29: POC Glucose 312 H 08/30/24 21:35: POC Glucose 273 H 08/31/24 04:00: WBC 10.4, RBC 3.19 L, Hgb 9.2 L, Hct 26.6 L, MCV 83.4, MCH 28.8, MCHC 34.6, RDW Std Deviation 46.5 H, RDW Coeff of Francis 15.4 H, Plt Count 56 L, MPV 13.1 H, Immature Gran % (Auto) 1.200 H, Neut % (Auto) 82.2 H, Lymph % (Auto) 7.7 L, [place] % (Auto) 6.6, Eos % (Auto) 2.0, Baso % (Auto) 0.3, Absolute Neuts (auto) 8.6 H, Absolute Lymphs (auto) 0.80 L, Nucleated RBC % 0, Sodium 135 L, Potassium 3.5, Chloride 107, Carbon Dioxide 18.0 L, Anion Gap 10, BUN 59 H, Creatinine 4.36 H, Estim Creat Clear Calc 21.72, Est GFR (MDRD) Af Amer 18 L, Est GFR (MDRD) Non-Af 15 L, BUN/Creatinine Ratio 13.5, Glucose 241 H, Calcium 8.4 L 08/31/24 06:03: POC Glucose 193 H Micro: Microbiology 08/29/24 19:40 Urine Catheter - Catheter Urine Culture - Preliminary Culture exhibits no growth. Physical Exam Narrative alert, oriented x3 and no apparent distress General Appearance: cooperative, well kempt and well developed Orientation / Consciousness: awake, oriented to person, oriented to place and oriented to time HEENT normocephalic, head/scalp atraumatic and moist oral mucous membranes Eyes PERRL, EOMs intact bilaterally and conjunctivae normal Neck supple, no JVD, thyroid normal and no carotid bruits General: trachea midline Resp normal respiratory effort, no retractions, no use of accessory muscles and clear to auscultation bilaterally Auscultation: Negative for rales, rhonchi or wheezes Cardio regular rate, regular rhythm, S1 normal heart sound, S2 normal heart sound, no murmurs, no rub and no gallops GI normal to inspection, nondistended, normoactive bowel sounds, soft to palpation, non-tender and non-distended Extremity no clubbing, cyanosis or edema Skin no rashes or lesions noted General Skin Exam: no breakdown Neuro oriented x3, CN's II-XII intact bilaterally, moves all extremities, no focal motor deficits and no sensory deficits noted Sensorium / Orientation: awake and alert Speech: speech normal Psych affect normal Assessment & Plan Assessment/Plan (1) ISABEL (acute kidney injury): PLAN: Plan 1. Acute kidney injury-nephrology is participating in his care, BMP will be rechecked tomorrow #2 hepatic encephalopathy-this appears to be resolved at this time, patient will remain on his current medications #3 cirrhosis-MASLD is the etiology, patient will need follow-up with feed research technician locally after discharge from the hospital #4 hypotension-resolved at this time #5 type 2 diabetes-blood sugars will be monitored, sliding scale insulin will be administered as indicated Total clinical time spent by myself addressing patient's medical issues, reviewing all of his data, and collaborating with patient's care team: 35 minutes Charges/Coding Visit Charges Inpatient E&M: 89249 Subs Hosp L2
[2024-08-31 16:36] LABS: Bedside Glucose 205 mg/dL (74-106)
[2024-08-31] MEDS: HYDROcodone Bitartrate/Apap 5/325 Tablet PO ×2 (17:06→21:29)
[2024-08-31 17:21] LABS: Bedside Glucose 219 mg/dL (74-106)
[2024-08-31 22:19] LABS: Bedside Glucose 222 mg/dL (74-106)
--- NOTE | 2024-08-31 22:21 | PN.GI_ITS ---
Subjective Subjective Patient is doingpatient is doing a lot better Objective Data Objective Data Vital Signs: Vital Signs Temp Pulse Resp BP Pulse Ox O2 Del Method 98 F 64 18 115/60 99 Room Air 09/01/24 20:48 09/01/24 20:48 09/01/24 20:48 09/01/24 20:48 09/01/24 20:48 09/01/24 20:48 Oxygen Delivery Method Room Air Weight: 224 lb 6.889 oz Body Mass Index (BMI) 33.1 Intake & Output: Intake and Output for Last 24 Hours 08/30/24 08/31/24 09/01/24 23:59 23:59 23:59 Intake Total 3554.66 / 3584.66 2270 / 2270 0 / 0 Output Total 1225 / 1225 300 / 300 0 / 0 Balance 2329.66 / 2359.66 1969 / 1970 0 / 0 Lab / Micro Data 08/31/24 04:00 09/01/24 05:50 Labs: Laboratory Results - last 24 hr 09/01/24 05:50: Sodium 134 L, Potassium 3.7, Chloride 107, Carbon Dioxide 16.0 L , Anion Gap 11, BUN 49 H, Creatinine 3.35 H, Estim Creat Clear Calc 28.26, Est GFR (MDRD) Af Amer 25 L, Est GFR (MDRD) Non-Af 20 L, BUN/Creatinine Ratio 14.6, Glucose 231 H, Calcium 8.6 09/01/24 11:21: POC Glucose 173 H 09/01/24 16:47: POC Glucose 192 H 09/01/24 20:50: POC Glucose 204 H Micro: Microbiology 08/29/24 19:40 Urine Catheter - Catheter Urine Culture - Final Culture exhibits no growth. Physical Exam Narrative alert, oriented x3 and no apparent distress General Appearance: cooperative, well kempt and well developed Orientation / Consciousness: awake, oriented to person, oriented to place and oriented to time HEENT normocephalic, head/scalp atraumatic and moist oral mucous membranes Eyes PERRL, EOMs intact bilaterally and conjunctivae normal Neck supple, no JVD, thyroid normal and no carotid bruits General: trachea midline Resp normal respiratory effort, no retractions, no use of accessory muscles and clear to auscultation bilaterally Auscultation: Negative for rales, rhonchi or wheezes Cardio regular rate, regular rhythm, S1 normal heart sound, S2 normal heart sound, no murmurs, no rub and no gallops GI normal to inspection, nondistended, normoactive bowel sounds, soft to palpation, non-tender and non-distended Extremity no clubbing, cyanosis or edema Skin no rashes or lesions noted General Skin Exam: no breakdown Neuro oriented x3, CN's II-XII intact bilaterally, moves all extremities, no focal motor deficits and no sensory deficits noted Sensorium / Orientation: awake and alert Speech: speech normal Psych affect normal Assessment & Plan Assessment/Plan (1) Hepatic encephalopathy: PLAN: Plan The patient is a 59 y/o M status post fall. He has a history of Boyer cirrhosis likely secondary to uncontrolled diabetes mellitus. He has a meld of 28 which carries a 20% mortality in the next 90 days. He is also a child Gonzalez class C due to his anemia, possible ascites and acute kidney injury. He was also discovered to have hypotension, anemia, thrombocytopenia. Hypotension likely secondary to splanchnic vasodilation in the setting of cirrhosis. Agree with volume expansion and pressors at this time. Agree with midodrine therapy. His hypotension does increase the risk of acute kidney injury secondary to ATN. Apparently his kidney function was normal. The differential diagnosis for his acute kidney injury does include ATN, prerenal azotemia, hepatorenal syndrome. Typically the criteria for hepatorenal syndrome is a cirrhotic with ascites, serum creatinine greater than 1.5, absence of shock, absence of hypobulimia (meaning no improvement of renal function after volume expansion and removing offending agents ), absence of intrinsic renal disease and no administration of nephrotoxic drugs. Awaiting his urine sodium. He is currently being seen by nephrology. He is on albumin, midodrine and pressor therapy. He did have a mild improvement in his creatinine from 5.8-5.3. Strict I's and O's. He will need renal ultrasound along with liver ultrasound. Decompensated cirrhosis secondary to unknown cause. He does have mild hepatic encephalopathy. Recommend Xifaxan 550 mg p.o. twice daily and lactulose 30 cc 3 times a day. Ultrasound to see if there is any ascites. Recommend ceftriaxone 1 g/day. Autoimmune liver disease workup along with checking labs for viral hepatitis. 08/31- Patient blood pressure is holding stable off of pressors. He's responding to fluid challenge. He is 250 cc positive. Thrombocytopenia, suspect chronic, likely secondary to underlying liver disease: Admission platelets 87, no comparison, will continue to trend CMP. He not showing any signs of jaundice at this time. He does not appear to have any worsening ascites.. He still complains of back pain and lower extremity swelling. His creatinine is improving. As appears as if he has ATN and not hepato renal syndrome.
[2024-09-01 02:00] VITALS: BP 113/63; PULSE 65; PULSE 66; RESP 15; TEMP 36.9; O2SAT 98
[2024-09-01] MEDS: HYDROcodone Bitartrate/Apap 5/325 Tablet PO ×2 (05:12→17:34)
[2024-09-01] MEDS: Lactulose 20 GM/30 ML UDC PO ×3 (05:13→20:54)
[2024-09-01 05:16] VITALS: BMI 33.1
[2024-09-01 06:50] LABS: Anion Gap 11 (5-15); BUN 49 mg/dL (7-18); BUN/Creat Ratio 14.6 RATIO (10-20); Calcium,Total 8.6 mg/dL (8.5-10.1); Chloride 107 mmol/L (98-107); Creatinine, Serum 3.35 mg/dL (0.70-1.30); EST Glomerular Filtration Rate 20 mL/min (>60); Est Glom Filt Rate - Afr Amer 25 mL/min (>60); Estimated Creatinine Clearance 28.26 ml/min; Glucose 231 mg/dL (74-106); Potassium 3.7 mmol/L (3.5-5.1); Sodium Level 134 mmol/L (136-145)
[2024-09-01 08:00] VITALS: BP 108/55; PULSE 66; RESP 16; TEMP 36.8; O2SAT 98
[2024-09-01] MEDS: Insulin Lispro 100 UNIT/ML INSULN.PEN SC ×4 (08:23→20:53)
[2024-09-01] MEDS: Midodrine HCl 5 MG Tablet 10 MG PO ×3 (08:24→16:49)
[2024-09-01] MEDS: Insulin Glargine-YFGN 100 UNIT/ML Pen 10 UNIT SC ×2 (08:24→20:52)
[2024-09-01] MEDS: Lidocaine 5% Patch 3 PATCH TOPICAL (08:25)
[2024-09-01] MEDS: Pantoprazole Sodium 40 MG Tablet PO ×2 (08:26→20:53)
[2024-09-01] MEDS: rifAXIMin 550 MG Tablet PO ×2 (08:26→20:53)
--- NOTE | 2024-09-01 10:50 | PN.RENAL_ITS ---
Subjective Subjective No new complaints no new events. Objective Data Objective Data Vital Signs: Vital Signs Temp Pulse Resp BP Pulse Ox O2 Del Method 98.2 F 66 16 108/55 L 98 Room Air 09/01/24 08:00 09/01/24 08:00 09/01/24 08:00 09/01/24 08:00 09/01/24 08:00 09/01/24 08:00 Oxygen Delivery Method Room Air Weight: 101.8 kg Body Mass Index (BMI) 33.1 Intake & Output: Intake and Output for Last 24 Hours 08/30/24 08/31/24 09/01/24 23:59 23:59 23:59 Intake Total 3554.66 / 3584.66 2270 / 2270 0 / 0 Output Total 1225 / 1225 300 / 300 0 / 0 Balance 2329.66 / 2359.66 1970 / 1970 0 / 0 Lab / Micro Data 08/31/24 04:00 09/01/24 05:50 Labs: Laboratory Results - last 24 hr 08/31/24 11:20: POC Glucose 205 H 08/31/24 16:59: POC Glucose 219 H 08/31/24 21:40: POC Glucose 222 H 09/01/24 05:50: Sodium 134 L, Potassium 3.7, Chloride 107, Carbon Dioxide 16.0 L , Anion Gap 11, BUN 49 H, Creatinine 3.35 H, Estim Creat Clear Calc 28.26, Est GFR (MDRD) Af Amer 25 L, Est GFR (MDRD) Non-Af 20 L, BUN/Creatinine Ratio 14.6, Glucose 231 H, Calcium 8.6 Micro: Microbiology 08/29/24 19:40 Urine Catheter - Catheter Urine Culture - Final Culture exhibits no growth. Radiography Diagnostic Testing: Radiology Impression Liver Ultrasound 08/30/24 05:55 IMPRESSION: Prominence of the calyceal system and the left kidney. There is a nonobstructing calyceal stone. There is no discrete hydronephrosis seen. There is a trace amount of free fluid around the bladder in the pelvis. Electronically Signed: Jasbir Yanes MD at 16:38 EST , Physical Exam Narrative Alert awake no obvious distress no pallor no icterus no JVD s1s2 no murmurs lungs clear abdomen soft no organomegaly no edema no cyanosis Assessment & Plan Assessment/Plan (1) ISABEL (acute kidney injury): PLAN: normal baseline cr as of June 2024 UA with trace protein fena 0.7 renal US pending Received a dose of albumin. With IV fluids alone, creatinine has improved. More likely prerenal at this point. Creatinine is trending down. Cirrhosis. HARRIS related. says he has not been on a transplant list. ? with low Fena. differential includes prerenal vs HRS received fluids Creatinine is better Most likely prerenal. He was on Levophed early hospitalization which might helped with the hepatorenal component if present. Continue midodrine only for now.
--- NOTE | 2024-09-01 11:00 | CASEMGMT ---
See PT and OT notes. This RN CM to pt room at this time to discuss DC planning. Pt is A&Ox4 and is resting in bed. Pt states that he still plans to return home at the time of DC with the help of his son. Pt continues to deny SNF needs. Pt states that he continues to have back pain. Pt educated that he can call to get established with a Pain Management doctor to help manage this. Pt states understanding and still has the provider list that was given during the initial assessment. Pt states that he will call himself to get established with a PCP as well as a Pain Management doctor. Pt thanks this RN SAUL. Since pt is not established with a PCP, HHC is not an option. This RN CM reviewed OP Tx as well as CCN with the pt. Pt denies OP tx. Pt does state that he would be interested in CCN. Referral placed. Pt denies further questions or concerns at this time. Tentative plan: Home with son support, CCN, new PCP and PM establishment. CM to follow for Rx costs d/t pt insurance complications.
[2024-09-01 11:36] VITALS: BP 106/60; PULSE 63
[2024-09-01 11:45] LABS: Bedside Glucose 173 mg/dL (74-106)
[2024-09-01 14:00] VITALS: BP 112/59; PULSE 66; RESP 20; TEMP 36.6; O2SAT 99
[2024-09-01 16:01] VITALS: O2SAT 95
--- NOTE | 2024-09-01 16:54 | PN.HOSP_ITS ---
Reason for Visit Reason for Visit: Diagnoses Hypotension, unspecified (08/29/24) Hepatic encephalopathy (08/29/24) Acute kidney failure, unspecified (08/29/24) Subjective Subjective Patient was seen and examined today, he continues to complain of low back pain. His creatinine today was improved at 3.35. Objective Data Objective Data Vital Signs: Vital Signs Temp Pulse Resp BP Pulse Ox O2 Del Method 97.8 F 66 20 H 112/59 L 95 Room Air 09/01/24 14:00 09/01/24 14:00 09/01/24 14:00 09/01/24 14:00 09/01/24 16:01 09/01/24 16:01 Oxygen Delivery Method Room Air Weight: 101.8 kg Body Mass Index (BMI) 33.1 Intake & Output: Intake and Output for Last 24 Hours 08/30/24 08/31/24 09/01/24 23:59 23:59 23:59 Intake Total 3554.66 / 3584.66 2270 / 2270 0 / 0 Output Total 1225 / 1225 300 / 300 0 / 0 Balance 2329.66 / 2359.66 1970 / 1970 0 / 0 Lab / Micro Data 08/31/24 04:00 09/01/24 05:50 Labs: Laboratory Results - last 24 hr 08/31/24 16:59: POC Glucose 219 H 08/31/24 21:40: POC Glucose 222 H 09/01/24 05:50: Sodium 134 L, Potassium 3.7, Chloride 107, Carbon Dioxide 16.0 L , Anion Gap 11, BUN 49 H, Creatinine 3.35 H, Estim Creat Clear Calc 28.26, Est GFR (MDRD) Af Amer 25 L, Est GFR (MDRD) Non-Af 20 L, BUN/Creatinine Ratio 14.6, Glucose 231 H, Calcium 8.6 09/01/24 11:21: POC Glucose 173 H Micro: Microbiology 08/29/24 19:40 Urine Catheter - Catheter Urine Culture - Final Culture exhibits no growth. Physical Exam Narrative alert, oriented x3 and no apparent distress General Appearance: cooperative, well kempt and well developed Orientation / Consciousness: awake, oriented to person, oriented to place and oriented to time HEENT normocephalic, head/scalp atraumatic and moist oral mucous membranes Eyes PERRL, EOMs intact bilaterally and conjunctivae normal Neck supple, no JVD, thyroid normal and no carotid bruits General: trachea midline Resp normal respiratory effort, no retractions, no use of accessory muscles and clear to auscultation bilaterally Auscultation: Negative for rales, rhonchi or wheezes Cardio regular rate, regular rhythm, S1 normal heart sound, S2 normal heart sound, no murmurs, no rub and no gallops GI normal to inspection, nondistended, normoactive bowel sounds, soft to palpation, non-tender and non-distended Extremity no clubbing, cyanosis or edema Skin no rashes or lesions noted General Skin Exam: no breakdown Neuro oriented x3, CN's II-XII intact bilaterally, moves all extremities, no focal motor deficits and no sensory deficits noted Sensorium / Orientation: awake and alert Speech: speech normal Psych affect normal Assessment & Plan Assessment/Plan (1) ISABEL (acute kidney injury): PLAN: Plan 1. Acute kidney injury-nephrology is participating in his care, BMP will be rechecked tomorrow, patient appears stable for transfer to PCU for further care #2 hepatic encephalopathy-this appears to be resolved at this time, patient will remain on his current medications #3 cirrhosis-MASLD is the etiology, patient will need follow-up with promotions assistant sales marketing locally after discharge from the hospital #4 hypotension-resolved at this time #5 type 2 diabetes-blood sugars will be monitored, sliding scale insulin will be administered as indicated Total clinical time spent by myself addressing patient's medical issues, reviewing all of his data, and collaborating with patient's care team: 35 minutes Charges/Coding Visit Charges Inpatient E&M: 84314 Subs Hosp L2
[2024-09-01 17:10] LABS: Bedside Glucose 192 mg/dL (74-106)
[2024-09-01 20:48] VITALS: BP 115/60; PULSE 64; RESP 18; TEMP 36.6; O2SAT 99
[2024-09-01 21:18] LABS: Bedside Glucose 204 mg/dL (74-106)
--- NOTE | 2024-09-01 21:57 | EX.PCM.PN.GI ---
Subjective Subjective Patient denies denies any abdominal pain. He continues to be a febrile. He is tolerating a diet, but its appetite is very poor. Objective Data Objective Data Vital Signs: Vital Signs Temp Pulse Resp BP Pulse Ox O2 Del Method 98 F 64 18 115/60 99 Room Air 09/01/24 20:48 09/01/24 20:48 09/01/24 20:48 09/01/24 20:48 09/01/24 20:48 09/01/24 20:48 Oxygen Delivery Method Room Air Weight: 224 lb 6.889 oz Body Mass Index (BMI) 33.1 Intake & Output: Intake and Output for Last 24 Hours 08/30/24 08/31/24 09/01/24 23:59 23:59 23:59 Intake Total 3554.66 / 3584.66 2270 / 2270 0 / 0 Output Total 1225 / 1225 300 / 300 0 / 0 Balance 2329.66 / 2359.66 1970 / 1970 0 / 0 Lab / Micro Data 08/31/24 04:00 09/01/24 05:50 Labs: Laboratory Results - last 24 hr 08/31/24 21:40: POC Glucose 222 H 09/01/24 05:50: Sodium 134 L, Potassium 3.7, Chloride 107, Carbon Dioxide 16.0 L, Anion Gap 11, BUN 49 H, Creatinine 3.35 H, Estim Creat Clear Calc 28.26, Est GFR (MDRD) Af Amer 25 L, Est GFR (MDRD) Non-Af 20 L, BUN/Creatinine Ratio 14.6, Glucose 231 H, Calcium 8.6 09/01/24 11:21: POC Glucose 173 H 09/01/24 16:47: POC Glucose 192 H 09/01/24 20:50: POC Glucose 204 H Micro: Microbiology 08/29/24 19:40 Urine Catheter - Catheter Urine Culture - Final Culture exhibits no growth. Physical Exam Narrative alert, oriented x3 and no apparent distress General Appearance: cooperative, well kempt and well developed Orientation / Consciousness: awake, oriented to person, oriented to place and oriented to time HEENT normocephalic, head/scalp atraumatic and moist oral mucous membranes Eyes PERRL, EOMs intact bilaterally and conjunctivae normal Neck supple, no JVD, thyroid normal and no carotid bruits General: trachea midline Resp normal respiratory effort, no retractions, no use of accessory muscles and clear to auscultation bilaterally Auscultation: Negative for rales, rhonchi or wheezes Cardio regular rate, regular rhythm, S1 normal heart sound, S2 normal heart sound, no murmurs, no rub and no gallops GI normal to inspection, nondistended, normoactive bowel sounds, soft to palpation, non-tender and non-distended Extremity no clubbing, cyanosis or edema Skin no rashes or lesions noted General Skin Exam: no breakdown Neuro oriented x3, CN's II-XII intact bilaterally, moves all extremities, no focal motor deficits and no sensory deficits noted Sensorium / Orientation: awake and alert Speech: speech normal Psych affect normal Assessment & Plan Assessment/Plan (1) Hepatic encephalopathy: PLAN: Plan The patient is a 59 y/o M status post fall. He has a history of Harris cirrhosis likely secondary to uncontrolled diabetes mellitus. He has a meld of 28 which carries a 20% mortality in the next 90 days. He is also a child Gonzalez class C due to his anemia, possible ascites and acute kidney injury. He was also discovered to have hypotension, anemia, thrombocytopenia. Hypotension likely secondary to splanchnic vasodilation in the setting of cirrhosis. Agree with volume expansion and pressors at this time. Agree with midodrine therapy. His hypotension does increase the risk of acute kidney injury secondary to ATN. Apparently his kidney function was normal. The differential diagnosis for his acute kidney injury does include ATN, prerenal azotemia, hepatorenal syndrome. Typically the criteria for hepatorenal syndrome is a cirrhotic with ascites, serum creatinine greater than 1.5, absence of shock, absence of hypobulimia (meaning no improvement of renal function after volume expansion and removing offending agents ), absence of intrinsic renal disease and no administration of nephrotoxic drugs. Awaiting his urine sodium. He is currently being seen by nephrology. He is on albumin, midodrine and pressor therapy. He did have a mild improvement in his creatinine from 5.8-5.3. Strict I's and O's. He will need renal ultrasound along with liver ultrasound. Decompensated cirrhosis secondary to unknown cause. He does have mild hepatic encephalopathy. Recommend Xifaxan 550 mg p.o. twice daily and lactulose 30 cc 3 times a day. Ultrasound to see if there is any ascites. Recommend ceftriaxone 1 g/day. Autoimmune liver disease workup along with checking labs for viral hepatitis. 08/31- Patient blood pressure is holding stable off of pressors. He's responding to fluid challenge. He is 250 cc positive. Thrombocytopenia, suspect chronic, likely secondary to underlying liver disease: Admission platelets 87, no comparison, will continue to trend CMP. He not showing any signs of jaundice at this time. He does not appear to have any worsening ascites.. He still complains of back pain and lower extremity swelling. His creatinine is improving. As appears as if he has ATN and not hepato renal syndrome. 09/01/2024 The patient is a 59 -year-old with established diagnosis of liver cirrhosis, unknown cause.Thought to be secondary to HARRIS> 1. Back pain. The patient had chronic pain syndrome, he has taken opiate for a prolonged period of time. the patient did not have any back pain on physical exam. His pain does not sound like an acute problem. He probably requires increased level of pain control. 2. End-stage liver disease. . We do not have hepatitis panel yet and we do not have information about the liver biopsy which was performed before. We do not have any information of any type of investigation in the past. Again, patient was seen by vest baster in [place]. We are waiting for the hepatitis panel and alpha-fetoprotein level. U/S FINDINGS: LIVER: There is a nodular margin to the liver. The liver measures 17.1 cm. GALLBLADDER: There are multiple echogenic foci in the gallbladder compatible gallstones. The gallbladder wall measures 3 mm. No pericholecystic fluid. Negative sonographic Vazquez''s sign. COMMON BILE DUCT: The common bile duct measures 5 mm. There is minimal flow in the common bile duct which has components of both hepatopedal and hepatofugal flow. The proximal common bile duct is within normal limits for the patient''s age. PANCREAS: Unremarkable as visualized. No focal abnormality is demonstrated in the pancreas. No pancreatic ductal dilatation. RIGHT KIDNEY: Unremarkable. There is no hydronephrosis. No shadowing calculus. No focal lesion or perinephric collection is demonstrated. The right kidney measures 11.0 x 6.0 x 5.2 cm. IMPRESSION: 1. Nodular margin of the liver compatible with cirrhosis. There is minimal flow in the portal vein which has components of both hepatopedal and hepatofugal flow. 2. Cholelithiasis with no sonographic evidence of cholecystitis. We have to figure out hepatitis status for another reason if he needs vaccination against hepatitis A and B. Until now we do not know exactly what the cause of the patient's end-stage liver disease is and my differential diagnosis probably is HARRIS. The patient denied any excessive alcohol intake, but I could not preclude alcohol-related liver cirrhosis also. We will need to look for nuclear antibody if it is not done before. PSC is extremely unlikely but possible. Mainor disease also possible diagnosis but again, we first have to figure out if these tests were done for the patient or not. Alpha1-antitrypsin deficiency will be extremely unlikely because the patient has no lung problem. On his end-stage liver disease we already know that he had low platelet count splenomegaly. We know that his bilirubin is elevated and albumin is very low. I suspect that at the time of admission to the hospital the patient presented with encephalopathy. We do not know if INR was checked to look for coagulopathy. The patient had an EGD in 2022. We have to have this result to evaluate if the patient had any varices and if he needs any intervention for that. At this point in time, I recommended the patient to continue to take lactulose 30 mL 3 times daily. The patient tolerated it well; no diarrhea at this point in time. As a primary prophylaxis of GI bleeding in patient with end-stage liver disease we should try to use Metoprolol. . The patient was educated how to use Metoprolol and he was explained why we decided to use this medication. The patient will hold this medication if he is orthostatic or bradycardic. I also discussed nutrition issues. THis protein intake is supposed to be about 25 g per day. He was advised not to over-eat protein and advised not to starve. He also was advised to stay away from alcohol. Charges/Coding Visit Charges Inpatient E&M: 21622 Subs Hosp L3
[2024-09-02] MEDS: HYDROcodone Bitartrate/Apap 5/325 Tablet PO ×3 (01:16→12:09)
[2024-09-02 01:58] VITALS: BP 115/60; PULSE 62; RESP 16; TEMP 36.8; O2SAT 99
[2024-09-02 03:57] VITALS: BMI 33.8
[2024-09-02] MEDS: Lactulose 20 GM/30 ML UDC PO ×2 (03:57→15:11)
[2024-09-02 07:37] LABS: Absolute Lymphocyte Count 1.04 X10^3/uL (0.83-4.51); Basophil# 0.07 X10^3/uL; Basophil% 0.4 % (0-1); Eosinophil# 0.22 X10^3/uL; Eosinophils% 1.3 % (0-5); Hematocrit 30.8 % (40-54); Hemoglobin 10.7 g/dL (13.0-16.5); Lymphocyte # 1.04 X10^3/ul (0.83-4.51); Lymphocyte % 6.3 % (19-41); Mean Corp Hgb Conc 34.7 g/dL (32-36); Mean Corpuscular Hgb 29.1 pg (27.0-32.0); Mean Corpuscular Volume 83.7 fL (80-94); Mean Platelet Vol. 12.8 fl (6.2-12.0); Monocyte# 0.99 X10^3/uL; NRBC Flagged by Analyzer 0 % (0-5); Neutrophil # 13.99 X10^3/uL (2.7-7.7); Neutrophil % 84.7 % (47-70); POSITIVE COUNT YES; Platelet Count 82 K/mm3 (150-450); RBC Distribution Width CV 15.7 % (11.6-14.6); Red Blood Count 3.68 M/mm3 (4.6-6.2); White Blood Count 16.5 K/mm3 (4.4-11.0)
[2024-09-02 07:39] LABS: Anion Gap 8 (5-15); BUN 43 mg/dL (7-18); BUN/Creat Ratio 16.9 RATIO (10-20); Calcium,Total 8.9 mg/dL (8.5-10.1); Chloride 107 mmol/L (98-107); Creatinine, Serum 2.54 mg/dL (0.70-1.30); EST Glomerular Filtration Rate 28 mL/min (>60); Est Glom Filt Rate - Afr Amer 34 mL/min (>60); Estimated Creatinine Clearance 37.67 ml/min; Glucose 187 mg/dL (74-106); Sodium Level 133 mmol/L (136-145)
[2024-09-02 08:00] VITALS: BP 142/82; PULSE 74; RESP 16; TEMP 36.8; O2SAT 99
[2024-09-02] MEDS: Lidocaine 5% Patch 3 PATCH TOPICAL (08:41)
[2024-09-02] MEDS: Insulin Glargine-YFGN 100 UNIT/ML Pen 10 UNIT SC (08:41)
[2024-09-02] MEDS: Midodrine HCl 5 MG Tablet 10 MG PO ×2 (08:41→12:09)
[2024-09-02] MEDS: Insulin Lispro 100 UNIT/ML INSULN.PEN SC ×2 (08:41→12:09)
[2024-09-02] MEDS: rifAXIMin 550 MG Tablet PO (08:42)
[2024-09-02] MEDS: Pantoprazole Sodium 40 MG Tablet PO (08:42)
[2024-09-02 09:22] VITALS: O2SAT 99
[2024-09-02 09:32] VITALS: O2SAT 100
--- NOTE | 2024-09-02 11:15 | PN.RENAL_ITS ---
Subjective Subjective No new events Objective Data Objective Data Vital Signs: Vital Signs Temp Pulse Resp BP Pulse Ox O2 Del Method 98.3 F 74 16 142/82 H 100 Room Air 09/02/24 08:00 09/02/24 08:00 09/02/24 08:00 09/02/24 08:00 09/02/24 09:32 09/02/24 09:32 Oxygen Delivery Method Room Air Weight: 104 kg Body Mass Index (BMI) 33.8 Intake & Output: Intake and Output for Last 24 Hours 08/31/24 09/01/24 09/02/24 23:59 23:59 23:59 Intake Total 2270 / 2270 0 / 0 Output Total 300 / 300 0 / 0 Balance 1970 / 1970 0 / 0 Lab / Micro Data 09/02/24 06:00 09/02/24 06:00 Labs: Laboratory Results - last 24 hr 09/01/24 11:21: POC Glucose 173 H 09/01/24 16:47: POC Glucose 192 H 09/01/24 20:50: POC Glucose 204 H 09/02/24 06:00: WBC 16.5 H, RBC 3.68 L, Hgb 10.7 L, Hct 30.8 L, MCV 83.7, MCH 29.1, MCHC 34.7, RDW Std Deviation 47.0 H, RDW Coeff of Francis 15.7 H, Plt Count 82 L, MPV 12.8 H, Immature Gran % (Auto) 1.300 H, Neut % (Auto) 84.7 H, Lymph % (Auto) 6.3 L, [place] % (Auto) 6.0, Eos % (Auto) 1.3, Baso % (Auto) 0.4, Absolute Neuts (auto) 14.0 H, Absolute Lymphs (auto) 1.04, Nucleated RBC % 0, Sodium 133 L, Potassium 4.0, Chloride 107, Carbon Dioxide 19.0 L, Anion Gap 8, BUN 43 H, C reatinine 2.54 H, Estim Creat Clear Calc 37.67, Est GFR (MDRD) Af Amer 34 L, Est GFR (MDRD) Non-Af 28 L, BUN/Creatinine Ratio 16.9, Glucose 187 H, Calcium 8.9 Micro: Microbiology 08/29/24 19:40 Urine Catheter - Catheter Urine Culture - Final Culture exhibits no growth. Physical Exam Narrative Alert awake no obvious distress no pallor no icterus no JVD s1s2 no murmurs lungs clear abdomen soft no organomegaly no edema no cyanosis Assessment & Plan Assessment/Plan (1) ISABEL (acute kidney injury): PLAN: normal baseline cr as of June 2024 UA with trace protein fena 0.7 renal US pending Received a dose of albumin. With IV fluids alone, creatinine has improved. More likely prerenal at this point. Creatinine is trending down. Cirrhosis. HARRIS related. says he has not been on a transplant list. ? with low Fena. differential includes prerenal vs HRS received fluids Creatinine is better Most likely prerenal. He was on Levophed early hospitalization which might helped with the hepatorenal component if present. Blood pressure is significantly better. We might stop midodrine if blood pressure continues to be normal.
[2024-09-02 12:23] LABS: Bedside Glucose 168 mg/dL (74-106)
--- NOTE | 2024-09-02 12:43 | CASEMGMT ---
Social Work SW met with pt to discuss transportation concerns. Pt states that he does not have a vehicle and his girlfriend's vehicle is broken down. SW provided written information on [place], [facility] hospital van, [employer] and [employer] car repair program. Pt does not have a ride home from the hospital and will need to utilize the [facility] hospital Van if available. JANETTE Roque
[2024-09-02 14:00] VITALS: BP 128/78; PULSE 76; RESP 14; TEMP 36.8; O2SAT 98
--- NOTE | 2024-09-02 14:23 | DCINST_ITS ---
Discharge Instructions Diet Discharge Diet: No restrictions DC O2, CPAP, BIPAP needs Home O2 Discharge instructions: No Dressing / Incision Discharge Activity: Return to Normal Activity Weight Bearing Status: Full weight bearing Follow Up Care Test Results: Test results from this visit will be discussed in further detail at your follow- up appointment, if applicable. Discharge Plan Admission Admit Date/Time: 08/29/24 22:09 Primary Reason for Your Visit: Acute kidney injury, hepatic encephalopathy Attending Provider: Rick Carlin Primary Care Provider: Care Physician,No Primary Consulting Providers: Maria Guadalupe Shore; Josefina Khan Instructions Additional Instructions / Restrictions: You will need your kidney function tests repeated when you follow-up with your primary care physician Discharge Orders/Prescriptions Prescriptions: New hydrocodone-acetaminophen 5-325 mg Tablet 1 tab PO Q4H PRN PRN (Reason: Pain Score 1-10) 7 Days Qty: 30 0RF lidocaine 5 % Adhesive Patch,Medicated 3 patch topical DAILY Qty: 90 0RF Protocol: *Topical Application Instructions APPLICATION INSTRUCTIONS: to affected region Rx Instructions: Apply to low back daily for pain lactulose 10 gram/15 mL Solution 20 g PO Q8 Qty: 1419 0RF midodrine 5 mg Tablet 10 mg PO TIDCM Qty: 90 0RF pantoprazole 40 mg Tablet,Delayed Release (Dr/Ec) 40 mg PO BID Qty: 60 0RF Xifaxan 550 mg Tablet 550 mg PO BID Qty: 60 0RF insulin glargine-yfgn 100 unit/mL (3 mL) Insulin Pen 10 unit subcut BID Qty: 5 0RF Discontinued lidocaine [Lidoderm] 5 % adhesive patch,medicated 3 patch topical DAILY Qty: 15 0RF Rx Instructions: leave on most painful area for up to 12 hrs folic acid 1 mg tablet 1,000 mcg PO DAILY cyclobenzaprine 10 mg tablet 10 mg PO QHS Referrals / Follow Up: [facility] [Outside] - See Referral Note (In the next 2 weeks as scheduled) Care Physician,No Primary [Primary Care Provider] - Disposition Disposition (needs filled in before D/C Order can be placed): Home, Self Care
[2024-09-02 14:54] VITALS: BP 118/62; PULSE 60; RESP 18; TEMP 36.7; O2SAT 99
--- NOTE | 2024-09-02 14:55 | DS.PCM_ITS ---
Providers Date of Admission: 08/29/24 Date of Discharge: 09/02/24 Primary Care Physician: Dayana Primary Care Phys Consultations 08/29/24 23:31 Consult: Gastroenterology Routine Consulting Provider: [facility] Reason for Consult: Liver cirrhosis, admit hepatic enceph, not being treated EMERGENT Consult: No Notified: Yes Date Notified: 08/29/24 Time Notified: 22:38 Method of Notification: Text Consult: Antenna Machine Operator / Pulmonary Medicine Routine Consulting Provider: Intensivists/Pulmonary Med Reason for Consult: Hypotension, Hep enceph, ISABEL EMERGENT Consult: No Notified: Yes Date Notified: 08/30/24 Time Notified: 05:55 Method of Notification: Text Consult: Nephrology Routine Consulting Provider: Josefina Khan Reason for Consult: ISABEL on CKD, liver disease concurrently EMERGENT Consult: Yes Notified: Yes Date Notified: 08/29/24 Time Notified: 22:38 Method of Notification: Answering Service Reason For Visit: HEPATIC ENCEPHALOPATHY, ISABEL, HYPOTENSION Diagnosis Discharge Diagnosis (1) ISABEL (acute kidney injury): Status: Acute Code(s): N17.9 - Acute kidney failure, unspecified Plan 1. Acute kidney injury-nephrology is participating in his care, BMP will be rechecked tomorrow, patient appears stable for transfer to PCU for further care #2 hepatic encephalopathy-this appears to be resolved at this time, patient will remain on his current medications #3 cirrhosis-MASLD is the etiology, patient will need follow-up with screen printing machine loader unloader locally after discharge from the hospital #4 hypotension-resolved at this time #5 type 2 diabetes-blood sugars will be monitored, sliding scale insulin will be administered as indicated #6 shock secondary to hypovolemia Total clinical time spent by myself addressing patient's medical issues, reviewing all of his data, and collaborating with patient's care team: 35 minutes Medications at Discharge Home Medications hydrocodone-acetaminophen 5-325mg 5mg-325mg 1 tab PO Q4H PRN PRN Pain Score 1-10 7 days #30 tabs 09/02/24 insulin glargine-yfgn 100 unit/mL (3 mL) subcutaneous pen 10 unit (0.1 mL) subcut BID #5 pens 09/02/24 lactulose 10 gram/15 mL oral solution 20 g (30 mL) PO Q8 #1,419 mL 09/02/24 lidocaine 5 % topical patch 3 patch topical DAILY #90 ea 09/02/24 midodrine 5 mg tablet 10 mg (2 x 5 mg) PO TIDCM #90 tabs 09/02/24 pantoprazole 40 mg tablet,delayed release 40 mg PO BID #60 tabs 09/02/24 rifaximin 550 mg tablet (Xifaxan) 550 mg PO BID #60 tabs 09/02/24 Hospital Course Operations None Procedures None Summary of Care Provided Minutes Spent on Discharge: 32 Hospital Course: This 59-year-old white male was seen in the emergency room at [facility] after being brought in by squad due to generalized illness. Patient recently moved from [place], he had been treated in the past for nonalcoholic liver disease with cirrhosis. Labs obtained revealed a leukocytosis, patient's ammonia level was elevated and patient had elevated bilirubin. Patient's chest x-ray was unremarkable. Patient's creatinine was elevated at 5.63 and BUN was 76. Glucose was elevated at 257. Patient was noted to be hypotensive, he was admitted to ICU and seen in consultation by critical care, he was seen in consultation by nephrology due to his elevated renal functions and seen in consultation by gastroenterology. Patient's medications were adjusted during his hospitalization, his blood pressure stabilized and his renal functions improved. Patient complained of back pain during his hospitalization but x-rays revealed old compression fractures there was no evidence of new compression fractures. On 09/02/2024, patient was seen and examined: On examination he appeared in good health and spirits. Vital signs as documented. Skin warm and dry and without overt rashes. Neck without JVD, neck was supple, trachea midline, thyroid was normal. Lungs clear bilaterally, normal air movement was noted. Heart exam notable for regular rhythm, normal sounds and absence of murmurs, rubs or gallops. Abdomen unremarkable and without evidence of organomegaly, masses, or abdominal aortic enlargement. Bowel sounds are present, abdomen is not distended. Extremities nonedematous, no cyanosis was noted, no clubbing was noted. Neuro: Cranial nerves II through XII are grossly intact, no focal motor deficits were noted, sensation to light touch and pinprick intact, motor exam 5/5 throughout. Psych: Patient is alert and oriented x3, he does not appear anxious or depressed, he does not appear agitated. Patient was discharged home in stable condition on 09/02/2024 Weight / BMI Weight Weight: 104 kg Body Mass Index (BMI) 33.8 ABG / Lab / Microbiology Data 09/02/24 06:00 09/02/24 06:00 Laboratory: Laboratory Results - last 24 hr 09/01/24 16:47: POC Glucose 192 H 09/01/24 20:50: POC Glucose 204 H 09/02/24 06:00: WBC 16.5 H, RBC 3.68 L, Hgb 10.7 L, Hct 30.8 L, MCV 83.7, MCH 29.1, MCHC 34.7, RDW Std Deviation 47.0 H, RDW Coeff of Francis 15.7 H, Plt Count 82 L, MPV 12.8 H, Immature Gran % (Auto) 1.300 H, Neut % (Auto) 84.7 H, Lymph % (Auto) 6.3 L, Sawyer % (Auto) 6.0, Eos % (Auto) 1.3, Baso % (Auto) 0.4, Absolute Neuts (auto) 14.0 H, Absolute Lymphs (auto) 1.04, Nucleated RBC % 0, Sodium 133 L, Potassium 4.0, Chloride 107, Carbon Dioxide 19.0 L, Anion Gap 8, BUN 43 H, C reatinine 2.54 H, Estim Creat Clear Calc 37.67, Est GFR (MDRD) Af Amer 34 L, Est GFR (MDRD) Non-Af 28 L, BUN/Creatinine Ratio 16.9, Glucose 187 H, Calcium 8.9 09/02/24 12:03: POC Glucose 168 H Microbiology: Microbiology 08/29/24 19:40 Urine Catheter - Catheter Urine Culture - Final Culture exhibits no growth. D/C Instructions Discharge Diet: No restrictions Weight Bearing Status: Full weight bearing DC O2, CPAP, BIPAP Needs Home O2 Discharge instructions: No Meaningful Use Info Meaningful Use Meaningful Use Diagnoses (Choose all that apply): None applicable Ischemic Stroke Statin Dosing Therapy Reference: STATIN DOSE THERAPY REFERENCE: * Patients > 75 years receive moderate or high dose statin therapy. * Patients 75 years or YOUNGER should receive HIGH intensity statin dose unless contraindicated. You will be required to document reason for non-treatment if statin daily dose does not meet guidelines. HIGH DOSE STATIN THERAPY DAILY Atorvastatin > than or = to 40 mg Rosuvastatin > than or = to 20 mg Amlodipine + Atorvastatin > than or = to 2.5/40 mg Ezetimibe + Simvastatin 10/80 mg Simvastatin 80mg Discharge Plan Admission Admit Date/Time: 08/29/24 22:09 Primary Reason for Your Visit: Acute kidney injury, hepatic encephalopathy Attending Provider: Rick Carlin Primary Care Provider: Care Physician,No Primary Consulting Providers: Maria Guadalupe Shore; Josefina Khan Instructions Additional Instructions / Restrictions: You will need your kidney function tests repeated when you follow-up with your primary care physician Discharge Orders/Prescriptions Prescriptions: New hydrocodone-acetaminophen 5-325 mg Tablet 1 tab PO Q4H PRN PRN (Reason: Pain Score 1-10) 7 Days Qty: 30 0RF lidocaine 5 % Adhesive Patch,Medicated 3 patch topical DAILY Qty: 90 0RF Protocol: *Topical Application Instructions APPLICATION INSTRUCTIONS: to affected region Rx Instructions: Apply to low back daily for pain lactulose 10 gram/15 mL Solution 20 g PO Q8 Qty: 1419 0RF midodrine 5 mg Tablet 10 mg PO TIDCM Qty: 90 0RF pantoprazole 40 mg Tablet,Delayed Release (Dr/Ec) 40 mg PO BID Qty: 60 0RF Xifaxan 550 mg Tablet 550 mg PO BID Qty: 60 0RF insulin glargine-yfgn 100 unit/mL (3 mL) Insulin Pen 10 unit subcut BID Qty: 5 0RF Discontinued lidocaine [Lidoderm] 5 % adhesive patch,medicated 3 patch topical DAILY Qty: 15 0RF Rx Instructions: leave on most painful area for up to 12 hrs folic acid 1 mg tablet 1,000 mcg PO DAILY cyclobenzaprine 10 mg tablet 10 mg PO QHS Referrals / Follow Up: [facility] [Outside] - See Referral Note (In the next 2 weeks as scheduled) Care Physician,No Primary [Primary Care Provider] - 09/13/24 10:00 am (Dr. Redman) Disposition Disposition (needs filled in before D/C Order can be placed): Home, Self Care Charges/Coding Visit Charges Inpatient E&M: 86859 Disch Hosp >30min
[2024-09-02] MEDS: MethylPREDNISolone Acetate 80 MG/ML Vial IM (15:40)
--- NOTE | 2024-09-02 16:51 | CASEMGMT ---
1237: The hospitalist states that there is potential for patient discharge today. Dr. Barr was notified by social work at this time that the patient does not have a ride home from the hospital and that transportation will need to be set up. 1455: Patient has an order for discharge placed by Dr. Barr. Patient does not have a ride home and patient does not currently have insurance to help cover Rx costs. Patient states that he cannot afford any of his new medications. Telephone call to [facility] and [facility] states that the patient's lidocaine patches and Cranbury Rxs are not eligible for the [employer] program. [facility] states that the lidocaine patches are over $200 and that the Cranbury is $16. Pt states that he may be able to afford the Cran[place] at a later date. Pt states that he is OK with going home without this for now. [facility] also states that the Xifaxan is over $3000. Dr. Barr was notified and Dr. Barr cancels the RX. [facility] states they they can send the rest of the pt medications through the [employer] program. 1500: Telephone call to [facility] transportation services. [facility] transportation states that they do not have any availability today for transportation home. 1502: Symone Colindres, maintenance man, States that it is OK to sign a voucher and/or have the hospital billed for cab transportation but is unsure of the current cab company that services [facility]. Symone states that it used to be [employer]. [employer] is currently out of business and is permanently closed. TC to [facility] Charge nurse who states [employer] is an option. 1505: [facility] states that the patient?s address is outside of city limits and that they are unable to provide transportation for the patient with a voucher. 1506: JEANNINE Abraham states that [employer] is another option. 1507: TC to [employer] and [facility] [employer] states that they will be able to transport the patient home and will bill the hospital directly. [facility] [employer] states that they close at 4 PM. 1510: TC back to [facility] and [facility] notified that the patient's transportation is scheduled for 4 PM at the latest and [facility] states that they are working on getting the medications ready to deliver to the patient's room. [facility] states that Dr. Barr gave them verbal orders regarding the patient's prescription complications and that this is now sorted out. 1515: RN CM to patient room at this time. Patient RN at bedside and preparing the patient for discharge. Patient RN states that Dr Barr added a x1 order for a steroid medication that [facility] needs to send to the ICU. Otherwise, the patient's RN states that the patient is ready for discharge. Patient is currently dressed and states that he is personally ready for discharge home and states that he will be able to get into his home upon arrival and that a family member should be there. Pt states that he has been trying to contact his family but nobody has been answering his calls. 1530: TC to [employer] and [facility] [employer] states that they have one more delivery that they can work on prior to coming to the hospital to pick the patient up. [facility] [employer] states that they will be to the hospital shortly after 4 PM for transportation. 1545: telephone call to [facility] and [facility] states that they are still working on getting the patient medication?s ready. [id number]: patient in a wheelchair with patient RN ready for discharge home, awaiting medication delivery from [facility]. 1615: TC to [facility] and [facility] states that the medications are ready but have not been sent by a employment program representative yet. This business affairs manager inquired if the patient's RN and the patient could mushroom picker the medications physically on the way out of the hospital due to the time restriction. [facility] states that this is OK. 1616: patient RN takes the patient off of the floor. 1617: TC to [employer] to notify them of the situation. No answer as they are closed. 1633: Pt RN returns to the floor and states that the pt was picked up by the taxi service. 1513: ICU attendance secretary reports that the pt's landlord called into the hospital earlier and stated that he will be picking the pt up. This information was never disclosed to this RN CM or the pt RN. Pt RN states that he never signed a voucher or any documentation when the patient transportation driver picked the pt up. 1515: TC to the pt at this time. Pt landlord answers the phone and states that the pt is home safe and that he was the one who provided the pt with transportation home.
== END 2024-09-02 16:24 | disposition home or self-care (01) | DRG 432 ==
LOC: ED 15:28 → ICU 22:41
PROVIDERS: Internal Medicine Critical Care Medicine; Admitting Provider Family Medicine; Emergency Provider Emergency Medicine; Referring Provider Family Medicine; Visit Provider Internal Medicine
DX: K74.60 Unspecified cirrhosis of liver (principal); R57.1 Hypovolemic shock; E72.20 Disorder of urea cycle metabolism, unspecified; N17.9 Acute kidney failure, unspecified; K72.10 Chronic hepatic failure without coma; D63.8 Anemia in other chronic diseases classified elsewhere; E11.65 Type 2 diabetes mellitus with hyperglycemia; K76.82 Hepatic encephalopathy; N18.9 Chronic kidney disease, unspecified; I12.9 Hypertensive chronic kidney disease with stage 1 through stage 4 chronic kidney disease, or unspecified chronic kidney disease; D69.6 Thrombocytopenia, unspecified; I95.9 Hypotension, unspecified; G47.33 Obstructive sleep apnea (adult) (pediatric); M54.9 Dorsalgia, unspecified; E78.5 Hyperlipidemia, unspecified; K21.9 Gastro-esophageal reflux disease without esophagitis; K80.20 Calculus of gallbladder without cholecystitis without obstruction; E80.7 Disorder of bilirubin metabolism, unspecified; Z87.891 Personal history of nicotine dependence; G89.4 Chronic pain syndrome; Z99.89 Dependence on other enabling machines and devices; N20.0 Calculus of kidney
CPT/HCPCS: 36415; 70450; 71045; 72125; 72128; 72131; 76705; 76770; 80048; 80053; 80076; 81001; 82140; 82570; 82728; 82962; 83036; 83540; 83550; 83690; 83735; 84100; 84300; 85014; 85018; 85025; 85610; 85730; 87086; 93005; 94668; 94762; 97162; 97166; 97530; 97535; 97802; 97803; 99285; 99406; P9047; P9612; A4216

== ENCOUNTER 2024-09-04 21:19 | Inpatient (IN) | payer MEDICAID, SELFPAY ==
[2024-09-04 21:20] VITALS: BP 136/74; PULSE 83; RESP 18; TEMP 36.8; O2SAT 98; BMI 35.1
[2024-09-04 21:47] LABS: Bedside Glucose 247 mg/dL (74-106)
--- NOTE | 2024-09-04 22:39 | ED.VIS.BACK ---
HPI History of Present Illness Chief Complaint: Back Informant: patient and EMS Narrative Narrative: Patient is a 59-year-old male with history of diabetes mellitus, PAD encephalopathy, liver cirrhosis presenting for worsening back pain. Patient states that his back pain has been worse he is also having abdominal pain. Denies any nausea or vomiting no fever or chills. Cannot tell me last time he had a bowel movement thinks was a couple days ago. States that he has some meds at home but is not sure which 1 you supposed to take today so he did not take the other 1. He is not sure which medications these are. Tells me he has been seen in the ER recently for his back pain as well and they gave him 2 medicines. He overall is a poor historian. States today he could not get downstairs because of his pain which is why he called 911 and was brought to the emergency room. EMS reports states that patient called for back pain has been worsening then he could not function today. He was not able to use the restroom or eat due to his pain. Did not take his insulin today because of his pain. Of note patient does live home with family. He did recently moved to this area from [place] and states that he has been referred to pain management. He is not sure who his primary care doctor is. Chart review shows that patient was discharged from our hospital 2 days ago for hepatic encephalopathy secondary to liver cirrhosis and ISABEL. Patient did have a fall about a week and a half ago and had CT imaging which did not show any traumatic process. Was discharged with prescription for [place] and Lidoderm patches as well as lactulose, midodrine, pantoprazole, insulin and Xifaxan. Is not clear if patient is taking these medications. He was referred for outpatient follow-up with [facility]. [facility] Medical History Hyperbilirubinemia Liver cirrhosis secondary to HARRIS (nonalcoholic steatohepatitis) HLD (hyperlipidemia) HTN (hypertension) Thrombocytopenia Chronic anemia Former tobacco use Diabetes mellitus, type 2 ABBY on CPAP Back pain Home Medications ?Medication ?Instructions ?Recorded ?Last Taken ?Type hydrocodone-acetaminophen 5-325mg 1 tab PO Q4H PRN PRN Pain Score 09/02/24 Unknown Rx 5mg-325mg 1-10 7 days #30 tabs insulin glargine-yfgn 100 unit/mL 10 unit (0.1 mL) subcut BID #5 pens 09/02/24 Unknown Rx (3 mL) subcutaneous pen lactulose 10 gram/15 mL oral 20 g (30 mL) PO Q8 #1,419 mL 09/02/24 Unknown Rx solution lidocaine 5 % topical patch 3 patch topical DAILY #90 ea 09/02/24 Unknown Rx midodrine 5 mg tablet 10 mg (2 x 5 mg) PO TIDCM #90 tabs 09/02/24 Unknown Rx pantoprazole 40 mg tablet,delayed 40 mg PO BID #60 tabs 09/02/24 Unknown Rx release rifaximin 550 mg tablet (Xifaxan) 550 mg PO BID #60 tabs 09/02/24 Unknown Rx Allergy/AdvReac Type Severity Reaction Status Date / Time No Known Allergies Allergy Verified 09/04/24 21:19 Family History Mother Heart disease Hypertension CAD (coronary artery disease) Myocardial infarction Father Hypertension Heart disease Heart failure Surgical History History of tonsillectomy and adenoidectomy Social History household members: significant other Smoking Status: Former smoker how long ago did patient quit smoking: Quit ~ 3-4 months prior (fall 2023), smoked 1.5 ppd since teen until quit. alcohol intake: never substance use type: does not use ROS ROS ED Constitutional Constitutional ED: Denies chills or fever(s) Cardiovascular Cardiovascular: Denies chest pain Respiratory/Chest Respiratory/Chest: Denies dyspnea Gastrointestinal Gastrointestinal: Reports abdominal pain and constipation; Denies vomiting Genitourinary Genitourinary ED: Denies dysuria Musculoskeletal Musculoskeletal: Reports back pain Integumentary Denies rash Neurologic Neurologic: Reports weakness; Denies paresthesias EXAM Physical Exam Const Vital Signs: 09/04/24 21:20 09/04/24 23:19 09/05/24 01:00 Temperature 98.3 F Temperature Source Oral Pulse Rate 83 85 84 Respiratory Rate 18 18 24 H Blood Pressure 136/74 H 133/74 H 141/77 H Blood Pressure Mean 94 93 98 Pulse Ox 98 98 99 Oxygen Delivery Method Room Air Room Air Room Air 09/05/24 01:09 09/05/24 01:11 Temperature 98.5 F 98.5 F Temperature Source Oral Pulse Rate 79 79 Respiratory Rate 18 18 Blood Pressure 141/77 H 141/77 H Blood Pressure Mean 98 98 Pulse Ox 99 100 Oxygen Delivery Method Room Air Positive well developed and obese Constitutional Narrative: Chronically ill-appearing General Appearance ED: well developed Nutritional Appearance: obese HEENT Reports moist mucous membranes Eyes PERRL General Eye ED: Yes scleral icterus Neck supple Resp normal respiratory effort and clear to auscultation bilaterally Cardio regular rate, regular rhythm and no murmurs GI GI Narrative: Mildly distended abdomen. No fluid wave appreciated. Tenderness present, more pronounced in the upper abdomen. Palpation: Negative for guarding Back/Spine Back/Spine Narrative: Lidoderm patches along the entire spine present. Tenderness palpation most pronounced in the lumbar region over the spinal process diffusely as well as the right lumbar area Extremity normal to inspection General Extremety ED: Negative for edema General Extremity: Negative for edema Neuro Neuro Narrative: Patient mildly confused. No focal findings. No 5/5 strength with plantar dorsiflexion. Sensorium / Orientation: alert Psych mental status grossly normal Psych Narrative: Odd affect Skin General Skin Exam: jaundice MDM MDM MDM Narrative Medical decision making narrative: Patient is evaluated for worsening of his back pain. Patient is chronic back pain he did have a fall about 2 weeks ago. Was recently admitted to the hospital for ISABEL, generalized weakness and hepatic encephalopathy but at that time had presented for back pain as well as weakness. Patient was discharged 2 days ago. Patient hemodynamically stable upon arrival to the emergency room. He still pain back pain is now moving to his abdomen. Differential includes recurrent hepatic encephalopathy, renal colic, SBP, cholecystitis, ISABEL, toxic encephalopathy secondary to pain medications, pyelonephritis and urinary tract infection. Workup shows a pretty significant leukocytosis of 19.1. This is uptrending. Patient was discharged with a white count of 16 however the etiology that was not certain. Prior to that his white blood cell counts have been normal (in the 10-11 range). Patient's lactate is elevated 3.1. Is unclear if this is associated with infection or his liver disease. He does have a left shift with granulocytes of 1.5%. CMP does show worsening of his bilirubin, AST and ALT however his creatinine is improving and today is 1.82. Urinalysis does show 10-25 red blood cells but no bacteria seen. Urine tox positive for opioids. 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 Given his worsening leukocytosis and liver enzymes did discuss with GI, Dr. Li. He states he is to potential sources of infection possible SBP versus of staghorn calculus/renal infection. Urinalysis does show red blood cells with some white blood cells but no bacteria. Cultures are pending. Patient started on Zosyn which should cover for both. Dr. Li recommends admission and he will see him on consult. Patient is agreeable. Case is discussed with hospitalist. Hospitalist is concerned about the staghorn calculus and the need for emergent intervention or possible tertiary care. Will discuss with urology, Dr. Rascon who is on-call. Case discussed with urology. Urology said they be happy to see him on consult and does not think he needs tertiary level of care or emergent surgery at this time. Will discuss with hospitalist for admission here. History & Record Review Additional record(s) reviewed:: Prior inpatient record Lab Data Attestation: I reviewed the patient's lab results. Labs: Laboratory Results - last 24 hr 09/04/24 09/04/24 09/04/24 21:27 22:48 23:07 WBC 19.1 H RBC 3.29 L Hgb 9.4 L Hct 28.5 L MCV 86.6 MCH 28.6 MCHC 33.0 RDW Std Deviation 48.6 H RDW Coeff of Francis 15.9 H Plt Count 103 L MPV 12.0 Immature Gran % (Auto) 1.500 H Neut % (Auto) 84.3 H Lymph % (Auto) 5.1 L Hodgeman % (Auto) 7.9 Eos % (Auto) 0.9 Baso % (Auto) 0.3 Absolute Neuts (auto) 16.1 H Absolute Lymphs (auto) 0.98 Nucleated RBC % 0 Sodium 132 L Potassium 4.0 Chloride 104 Carbon Dioxide 18.0 L Anion Gap 10 BUN 22 H Creatinine 1.82 H Estim Creat Clear Calc 53.57 Est GFR (MDRD) Af Amer 49 L Est GFR (MDRD) Non-Af 41 L BUN/Creatinine Ratio 12.1 Glucose 252 H Calcium 8.5 Total Bilirubin 3.10 H Direct Bilirubin 1.80 H AST 156 H ALT 79 H Alkaline Phosphatase 269 H Ammonia 26.0 Total Protein 6.1 L Albumin 2.0 L Globulin 4.1 Urine Color Yellow Urine Clarity Clear Urine pH 6.0 Ur Specific [place] 1.020 Urine Protein 30 H Urine Glucose (UA) Normal Urine Ketones Negative Urine Occult Blood 150 H Urine Nitrite Negative Urine Bilirubin 1 H Urine Urobilinogen 1 H Ur Leukocyte Esterase 100 H Urine RBC 10-25 SEEN Urine WBC 5-10 SEEN Ur Squamous Epith Cells 0 SEEN Urine Bacteria 0 SEEN Urine Mucus 0 SEEN Urine Opiates Screen POSITIVE H Urine Methadone Screen NEGATIVE Ur Barbiturates Screen NEGATIVE Ur Phencyclidine Scrn NEGATIVE Ur Amphetamines Screen NEGATIVE MDMA (Ecstasy) Screen NEGATIVE U Benzodiazepines Scrn NEGATIVE Urine Cocaine Screen NEGATIVE U Cannabinoids Screen NEGATIVE Ur Drug Screen Comment POC Glucose 247 H Radiography Diagnostic Testing: Clinical Impression(s) from Imaging Studies Abdomen/Pelvis CT 09/04/24 23:30 IMPRESSION: 1. Cirrhosis with severe ascites. 2. 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 3. Marked splenomegaly. 4. Cholelithiasis. Pericholecystic edema can be seen with ascites. 5. Left staghorn calculus with pelvicaliectasis. 6. Suspicion of small left renal cyst. 7. Chronic prostatitis. Small prostate gland. 8. Anasarca. 9. Fluid-filled ventral hernia. 10. Fluid filled bilateral inguinal hernias. 11. Other nonacute findings detailed above. Reading Location: [facility] Management Discussion w/another healthcare provider: Hospitalist and Garage Manager (GI, urology) Discharge Plan Dx/Rx/DC Orders Clinical Impression: Leukocytosis, Chronic back pain, Staghorn calculus, Cirrhosis of liver Disposition Disposition: Acute Care Hospital [facility]
[2024-09-04] MEDS: fentaNYL 100 MCG/2 ML Ampul 50 MCG IV (23:06)
[2024-09-04 23:17] LABS: Bacteria 0 SEEN /hpf (None Seen); Mucous, Urine 0 SEEN /hpf (<or=2+); Squamous Epithelial Cells - UA 0 SEEN /hpf (0-5)
[2024-09-04 23:18] LABS: Absolute Lymphocyte Count 0.98 X10^3/uL (0.83-4.51); Absolute Neutrophil Count 16.1 X10^3/uL (2.0-7.7); Basophil# 0.06 X10^3/uL; Basophil% 0.3 % (0-1); Eosinophil# 0.17 X10^3/uL; Eosinophils% 0.9 % (0-5); Hematocrit 28.5 % (40-54); Hemoglobin 9.4 g/dL (13.0-16.5); Lymphocyte # 0.98 X10^3/ul (0.83-4.51); Lymphocyte % 5.1 % (19-41); Mean Corpuscular Hgb 28.6 pg (27.0-32.0); Mean Corpuscular Volume 86.6 fL (80-94); Monocyte% 7.9 % (0-10); NRBC Flagged by Analyzer 0 % (0-5); Neutrophil # 16.09 X10^3/uL (2.7-7.7); Neutrophil % 84.3 % (47-70); Platelet Count 103 K/mm3 (150-450); RBC Distribution Width CV 15.9 % (11.6-14.6); RBC Distribution Width SD 48.6 fl (35.1-43.9); Red Blood Count 3.29 M/mm3 (4.6-6.2); White Blood Count 19.1 K/mm3 (4.4-11.0)
[2024-09-04 23:19] VITALS: BP 133/74; PULSE 85; RESP 18; O2SAT 98
[2024-09-04 23:23] LABS: Color, Urine Yellow (Yellow); Glucose, Dipstick Normal (Normal); Ketone-Dipstick Negative (Negative); Leukocyte Esterase-Dipstick 100 /ul (Negative); Nitrite-Dipstick Negative (Negative); Occult Blood-Urine 150 /ul (Negative); Protein-Dipstick 30 mg/dl (Negative); Urine Clarity Clear (Clear); Urine Urobilinogen 1 mg/dl (Normal)
--- NOTE | 2024-09-04 23:30 | CT_ITS ---
PROCEDURE: ABDOMEN/PELVIS WITHOUT CONT REASON FOR EXAM: Back pain. Abdominal pain. Cirrhosis. Diabetes TECHNIQUE: Contiguous axial scans of 2.5 mm slice thicknesses without intravenous contrast. Sagittal and coronal reconstruction images were obtained. One or more dose reduction techniques were used (e.g., Automated exposure control, adjustment of the mA and/or kV according to patient size, use of iterative reconstruction technique). IV CONTRAST: Not given. COMPARISON: Ultrasound abdomen dated 08/30/2024 FINDINGS: Lung bases: Clear. Coronary artery calcifications. Liver: Small liver with lobulated contour. Severe ascites. Gallbladder: Multiple calculi. Mild pericholecystic edema. Spleen: Marked splenomegaly. Splenic varices. Pancreas: Unremarkable. Adrenals: Unremarkable. Kidneys: Staghorn calculus, left kidney with associated pelvicaliectasis. Small hypodense area measuring 1.2 cm in the inferior pole, axial image 80. Bladder: Moderately distended. Reproductive Organs: Small prostate gland with calcifications. Bowel: Unremarkable. Appendix: Normal. Lymph nodes: No suspicious lymph node enlargement. Vasculature: Mild atherosclerotic calcific disease of the aortoiliac arteries. Anterior abdominal wall: Anasarca. Fluid-filled midline well-circumscribed ventral hernia measuring 5.6 x 3.7 x 8.0 cm . Fluid-filled bilateral inguinal hernias, largest on the left measuring 4.9 x 4.4 cm. Peritoneum / Retroperitoneum: Severe ascites Bones: Multilevel spondylosis. CT/Abdomen/Pelvis without Cont IMPRESSION: 1. Cirrhosis with severe ascites. 2. 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 3. Marked splenomegaly. 4. Cholelithiasis. Pericholecystic edema can be seen with ascites. 5. Left staghorn calculus with pelvicaliectasis. 6. Suspicion of small left renal cyst. 7. Chronic prostatitis. Small prostate gland. 8. Anasarca. 9. Fluid-filled ventral hernia. 10. Fluid filled bilateral inguinal hernias. 11. Other nonacute findings detailed above. Reading Location: [facility]
[2024-09-04 23:33] LABS: Urine Bilirubin Dipstick 1 mg/dL (Negative)
[2024-09-04 23:36] LABS: Amphetamine Urine NEGATIVE (<1000 ng/mL); Barbiturate Urine VISTA NEGATIVE (< 200 ng/mL); Benzodiazepine Urine VISTA NEGATIVE (< 200 ng/mL); Cocaine Urine VISTA NEGATIVE (< 300 ng/mL); Ecstacy Urine VISTA NEGATIVE (< 500 ng/mL); Methadone Urine VISTA NEGATIVE (< 300 ng/mL); PCP Urine VISTA NEGATIVE (< 25 ng/mL); Red Blood Cells-Urine 10-25 SEEN /hpf (0-5); THC Urine VISTA NEGATIVE (< 50 ng/mL); Vista UDS pH Range 5
[2024-09-04 23:36] LABS: AST(SGOT) 156 U/L (15-37); Alanine Aminotransfer ALT/SGPT 79 U/L (16-61); Alkaline Phosphatase 269 U/L (45-117); Anion Gap 10 (5-15); BUN 22 mg/dL (7-18); BUN/Creat Ratio 12.1 RATIO (10-20); Calcium,Total 8.5 mg/dL (8.5-10.1); Chloride 104 mmol/L (98-107); Creatinine, Serum 1.82 mg/dL (0.70-1.30); EST Glomerular Filtration Rate 41 mL/min (>60); Est Glom Filt Rate - Afr Amer 49 mL/min (>60); Estimated Creatinine Clearance 53.57 ml/min; Globulin 4.1 g/dL (2.2-4.2); Glucose 252 mg/dL (74-106); Protein, Total 6.1 g/dL (6.4-8.2); Sodium Level 132 mmol/L (136-145)
[2024-09-04 23:37] LABS: White Blood Cells 5-10 SEEN /hpf (0-5)
[2024-09-05] VITALS (30 sets, daily range): BP systolic 115–149; BP diastolic 58–94; PULSE 78–109; RESP 10–24; TEMP 36.3–37.4; O2SAT 91–100; BMI 34.2
[2024-09-05] MEDS: Piperacil/Tazobactam 3.375 GM in 0.9% Normal Saline (50mL MB+) 50 ML IV ×4 (00:56→21:04)
--- NOTE | 2024-09-05 01:45 | HP.PCM.HOS_ITS ---
[facility] - General General Date of Admission: 09/05/24 Date of Service: 09/05/24 Chief Complaint: Back Pain, Abdominal Pain and Generalized Weakness. HPI Narrative FRANKLIN WIGGINS, is a 59 M with a past medical history of chronic hypotension; on midodrine 3 times daily, former tobacco abuse (quit 2023), obesity; with BMI of 35.1 this admission, ABBY; on CPAP, DM-2; of unknown control on insulin glargine 10 units SQ twice daily, history of nonalcoholic cirrhotic liver disease, history of tobacco abuse, chronic anemia/thrombocytopenia; presumed to be due to underlying liver disease, OA; with chronic back pain, history of mechanical fall on August 21, 2024 with a ED visit at that time showing acute on chronic lumbar spine discomfort with otherwise unremarkable ED evaluation and recent admission here from August 29, 2024 to September 02, 2024 with patient diagnosed with [id number] hypotension in the setting of acute hepatic encephalopathy with hyperammonemia secondary to underlying chronic nonalcoholic liver cirrhosis with hyperbilirubinemia in addition to suspected ISABEL in the setting of CKD; of uncertain stage and shock attributed to hypovolemia with discharge summary revealing elevated creatinine of 5.63 mg/dL and BUN was 76 mg/dL with ensuing nephrology consultation which mentioned Left Staghorn Calculus but without evidence of further plan of management that I can find at this time who now re- presents to [facility] ER complaining of worsening back pain, abdominal pain and generalized weakness. Mr. Wiggins is a relatively poor historian but he reports his symptoms were present during his previous admission and became progressively worse to the point where he could not go downstairs because of his pain so he activated EMS to be brought in for further evaluation and treatment. He admits to a recent fall about a week and a half ago with patient written a prescription for [place] and Lidoderm patches as well as lactulose, midodrine, pantoprazole, insulin and Xifaxan but denies other traumatic fall or injury since that time. He states he was confused about his pain medications so he did not take them. He also admits to constipation for the past ~2 days and sharply decreased appetite due to his pain. He denies associated fever, chills, nausea, vomiting, diarrhea, chest pain, shortness of breath or headache but he does admit to diffuse spinal tenderness in the low back more on the Right than the Left. In the ER he was noted to have CT evidence of Left Staghorn Calculus with pelvocaliectasis in addition cirrhosis with a severe ascites and suspected splenic varices with marked splenomegaly in addition to cholelithiasis and chronic prostatitis with a small prostate gland, anasarca and a fluid-filled ventral hernia with fluid- filled bilateral inguinal hernias and no other acute findings with corresponding laboratory evidence of slow improvement of impaired renal with serum creatinine down to 1.82 mg/dL present on admission (from 2.54 mg/dL on September 02, 2024) and Hyperbilirubinemia with total bilirubin of 3.1 mg/dL, direct bilirubin of 1.8 mg/dL, AST 156 units/L, ALT of 79 units/L, alkaline phosphatase of 269 units/L and normal-range ammonia level of 26 ?mol/L along with UA suggestive of Acute Cystitis; with microscopic hematuria and leukocytosis of 19.1 K with left- shift of 1.5% consistent with suspected Sepsis complicated by clinical evidence of Acute Metabolic Encephalopathy with UDS positive for opiates. The ER physician contacted urologist on-call who recommended admission to the hospitalist service with formal consultation pending in the a.m. and appreciated in advance. He was then admitted to the ICU for treatment under the sepsis protocol for stay that is expected to extend beyond 2 midnights. [facility] Medical History (Updated 09/05/24 @ 07:[address] Hill Caro, DO) Hyperbilirubinemia Liver cirrhosis secondary to HARRIS (nonalcoholic steatohepatitis) HLD (hyperlipidemia) HTN (hypertension) Thrombocytopenia Chronic anemia Former tobacco use Diabetes mellitus, type 2 ABBY on CPAP Back pain Home Medications ?Medication ?Instructions ?Recorded ?Last Taken ?Type hydrocodone-acetaminophen 5-325mg 1 tab PO Q4H PRN PRN Pain Score 09/02/24 Unknown Rx 5mg-325mg 1-10 7 days #30 tabs insulin glargine-yfgn 100 unit/mL 10 unit (0.1 mL) sub cut BID #5 pens 09/02/24 Unknown Rx (3 mL) subcutaneous pen lactulose 10 gram/15 mL oral 20 g (30 mL) PO Q8 #1,419 mL 09/02/24 Unknown Rx solution lidocaine 5 % topical patch 3 patch topical DAILY #90 ea 09/02/24 Unknown Rx midodrine 5 mg tablet 10 mg (2 x 5 mg) PO TIDCM #9 0 tabs 09/02/24 Unknown Rx pantoprazole 40 mg tablet,delayed 40 mg PO BID #60 tab s 09/02/24 Unknown Rx release rifaximin 550 mg tablet (Xifaxan) 550 mg PO BID #60 ta bs 09/02/24 Unknown Rx Allergy/AdvReac Type Severity Reaction Status Date / Time No Known Allergies Allergy Verified 09/04/24 21:19 Family History Mother Heart disease Hypertension CAD (coronary artery disease) Myocardial infarction Father Hypertension Heart disease Heart failure Surgical History History of tonsillectomy and adenoidectomy Social History household members: significant other Smoking Status: Former smoker how long ago did patient quit smoking: Quit ~ 3-4 months prior (fall 2023), smoked 1.5 ppd since teen until quit. alcohol intake: never substance use type: does not use ROS ROS Narrative Full review of systems was not possible due to patient's confusion. Vital Signs Vital Signs Vital Signs: 09/04/24 21:20 09/04/24 23:19 09/05/24 01:00 Temperature 98.3 F Temperature Source Oral Pulse Rate 83 85 84 Respiratory Rate 18 18 24 H Blood Pressure 136/74 H 133/74 H 141/77 H Blood Pressure Mean 94 93 98 Pulse Ox 98 98 99 Oxygen Delivery Method Room Air Room Air Room Air 09/05/24 01:09 09/05/24 01:11 Temperature 98.5 F 98.5 F Temperature Source Oral Pulse Rate 79 79 Respiratory Rate 18 18 Blood Pressure 141/77 H 141/77 H Blood Pressure Mean 98 98 Pulse Ox 99 100 Oxygen Delivery Method Room Air Weight Weight: 238 lb Body Mass Index (BMI) 35.1 Physical Exam Const alert and no apparent distress Constitutional Narrative: Obese and chronically ill in appearance. General Appearance: cooperative Orientation / Consciousness: confused HEENT normocephalic, head/scalp atraumatic and hearing grossly normal bilaterally Eyes PERRL and EOMs intact bilaterally Eyes Narrative: Patient has clear icterus. Neck no lymphadenopathy and supple Resp normal respiratory effort, no retractions, no use of accessory muscles and clear to auscultation bilaterally Cardio regular rate and regular rhythm GI GI Narrative: Abdomen mildly distended with mild tenderness to palpation most noticeable in the upper abdomen with no fluid wave appreciated. Extremity normal to inspection, full ROM and no clubbing, cyanosis or edema Skin Skin Narrative: Patient has jaundice but no rash, wounds or abscess. Neuro CN's II-XII intact bilaterally, moves all extremities and no focal motor deficits Sensorium / Orientation: awake, alert, oriented to person and oriented to place Speech: speech normal Psych affect normal Results Medical Records Data Attestation: I reviewed the patient's medical records Lab / Micro Data Attestation: I reviewed the patient's lab results. 09/04/24 23:07 09/04/24 23:07 Labs: Laboratory Results - last 24 hr 09/04/24 21:27: POC Glucose 247 H 09/04/24 22:48: Urine Color Yellow, Urine Clarity Clear, Urine pH 6.0, Ur Specific [place] 1.020, Urine Protein 30 H, Urine Glucose (UA) Normal, Urine Ketones Negative, Urine Occult Blood 150 H, Urine Nitrite Negative, Urine Bilirubin 1 H, Urine Urobilinogen 1 H, Ur Leukocyte Esterase 100 H, Urine RBC 10-25 SEEN, Urine WBC 5-10 SEEN, Ur Squamous Epith Cells 0 SEEN, Urine Bacteria 0 SEEN, Urine Mucus 0 SEEN, Urine Opiates Screen POSITIVE H, Urine Methadone Screen NEGATIVE, Ur Barbiturates Screen NEGATIVE, Ur Phencyclidine Scrn NEGATIVE, Ur Amphetamines Screen NEGATIVE, MDMA (Ecstasy) Screen NEGATIVE, U Benzodiazepines Scrn NEGATIVE, Urine Cocaine Screen NEGATIVE, U Cannabinoids Screen NEGATIVE, Ur Drug Screen Comment 09/04/24 23:07: WBC 19.1 H, RBC 3.29 L, Hgb 9.4 L, Hct 28.5 L, MCV 86.6, MCH 28.6, MCHC 33.0, RDW Std Deviation 48.6 H, RDW Coeff of Francis 15.9 H, Plt Count 103 L, MPV 12.0, Immature Gran % (Auto) 1.500 H, Neut % (Auto) 84.3 H, Lymph % (Auto) 5.1 L, [place] % (Auto) 7.9, Eos % (Auto) 0.9, Baso % (Auto) 0.3, Absolute Neuts (auto) 16.1 H, Absolute Lymphs (auto) 0.98, Nucleated RBC % 0, Sodium 132 L, Potassium 4.0, Chloride 104, Carbon Dioxide 18.0 L, Anion Gap 10, BUN 22 H, C reatinine 1.82 H, Estim Creat Clear Calc 53.57, Est GFR (MDRD) Af Amer 49 L, Est GFR (MDRD) Non-Af 41 L, BUN/Creatinine Ratio 12.1, Glucose 252 H, Calcium 8.5, T otal Bilirubin 3.10 H, Direct Bilirubin 1.80 H, AST 156 H, ALT 79 H, Alkaline Phosphatase 269 H, Ammonia 26.0, Total Protein 6.1 L, Albumin 2.0 L, Globulin 4.1 Imaging Radiology Impression Abdomen/Pelvis CT 09/04/24 23:30 IMPRESSION: 1. Cirrhosis with severe ascites. 2. 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 3. Marked splenomegaly. 4. Cholelithiasis. Pericholecystic edema can be seen with ascites. 5. Left staghorn calculus with pelvicaliectasis. 6. Suspicion of small left renal cyst. 7. Chronic prostatitis. Small prostate gland. 8. Anasarca. 9. Fluid-filled ventral hernia. 10. Fluid filled bilateral inguinal hernias. 11. Other nonacute findings detailed above. Reading Location: [facility] Assessment & Plan Assessment/Plan (1) Staghorn calculus: (2) Acute cystitis with hematuria: (3) Leukocytosis: QUALIFIERS: Leukocytosis type: unspecified Qualified Code(s): D 72.829 - Elevated white blood cell count, unspecified (4) Lactic acidosis: (5) Impaired renal function: (6) Metabolic encephalopathy: (7) Generalized weakness: (8) Ambulatory dysfunction: (9) Chronic back pain: QUALIFIERS: Back pain laterality: bilateral Back pain location: l ow back pain Sciatica presence: without sciatica Qualified Code(s): M54.50 - Low back pain, unspecified; G89.29 - Other chronic pain (10) Liver cirrhosis secondary to HARRIS (nonalcoholic steatohepatitis): (11) Hyperbilirubinemia: (12) Obesity (BMI 30-39.9): (13) ABBY on CPAP: (14) Chronic hypotension: PLAN: Plan 1. CT evidence of Left Staghorn Calculus with pelvocaliectasis in addition cirrhosis with a severe ascites and suspected splenic varices with marked splenomegaly in addition to cholelithiasis and chronic prostatitis with a small prostate gland, anasarca and a fluid-filled ventral hernia with fluid-filled bilateral inguinal hernias and no other acute findings with corresponding laboratory evidence of Hyperbilirubinemia with total bilirubin of 3.1 mg/dL, direct bilirubin of 1.8 mg/dL, AST 156 units/L, ALT of 79 units/L, alkaline phosphatase of 269 units/L and normal-range ammonia level of 26 ?mol/L along with Lactic Acidosis of 3.2 mmol/L present on admission and UA suggestive of Acute Cystitis; with microscopic hematuria and Leukocytosis of 19.1 K with Left- shift of 1.5% consistent with suspected Sepsis and slowly improving impaired renal function - Admit to ICU for treatment under the Sepsis protocol. Continue empiric IV piperacillin/tazobactam begun in the ER and await culture and sensitivity data. Keep strict n.p.o. except for ice chips, sips and medications due to possible need for urologic procedure. Give ondansetron IV as needed nausea and vomiting. Check PSA screen with abnormal CT. Finally, urologic consultation pending in a.m. with help appreciated in advance. 2. Acute Metabolic Encephalopathy with UDS positive for opiates complicating #1 - Continue supportive care as outlined above and monitor for improvement. Check TSH, B12, folic acid, UDS and SASHA to evaluate for potential reversible causes of confusion. We will minimize [employer]-active medications and effort to allow sensorium to clear. 3. Recent admission here from August 29, 2024 to September 02, 2024 with patient diagnosed with [id number] hypotension in the setting of acute hepatic encephalopathy with hyperammonemia secondary to underlying chronic nonalcoholic liver cirrhosis with hyperbilirubinemia in addition to suspected ISABEL in the setting of CKD of uncertain stage and shock attributed to hypovolemia with discharge summary revealing elevated creatinine of 5.63 mg/dL and BUN was 76 mg/dL with ensuing nephrology consultation which mentioned Left Staghorn Calculus without further mention of plan of management I can find at this time with serum creatinine of 1.82 mg/dL this admission compounding #1 & #2 - Noted. 4. History of nonalcoholic cirrhotic liver disease with corresponding laboratory findings of Hyperbilirubinemia with total bilirubin of 3.1 mg/dL, direct bilirubin of 1.8 mg/dL, AST 156 units/L, ALT of 79 units/L, alkaline phosphatase of 269 units/L and normal-range ammonia level of 26 ?mol/L adding to the medical complexity of #1 - #3 - Continue current treatment and check CMP daily to follow trend. 5. Obesity; with BMI of 35.1 this admission and ABBY; on CPAP adding to the burden of disease outlined from #1 - #4- Weight loss will be recommended when sensorium clears. Check TSH. This complicates his case and may hamper recovery. 6. OA; with chronic back pain complicated by mechanical fall on August 21, 2024 with a ED visit at that time showing acute on chronic lumbar spine discomfort with otherwise unremarkable ED evaluation but patient noted to have severe pain with ambulation this admission consistent with acute Generalized Weakness with Ambulatory Dysfunction likely triggered by #1 - #5 - Give acetaminophen prn. PT/OT and Case Management to consult and treat on-rounds in AM for further recommendations with help appreciated in advance. 7. Chronic Hypotension; on midodrine 3 times daily - Resume midodrine as previous. 8. Former tobacco abuse (quit 2023) - Noted. 9. DM-2; of unknown control on insulin glargine 10 units SQ twice daily - NPO for now. FSBS q. 6h plus lowest intensity SSI. Check hemoglobin A1c to objectively assess quality of diabetic control. 10. History of tobacco abuse - Noted. 11. Chronic Anemia/Thrombocytopenia; presumed to be due to underlying liver disease - Stable with hemoglobin of 9.4 g/dL, MCV of 86.6 fL and thrombocytopenia of 103K present on admission which approximates his baseline levels. 12. DVT prophylaxis - SCD's only with possible impending urologic procedure. Total time: Approximately (but not less than) 75 minutes. Sepsis Attestation Sepsis Attestation: Sepsis Ruled Out Date exam was performed: 09/05/24 Time exam was performed: 02:00 Possible Source of Sepsis: Genitourinary Sepsis Organ Dysfunction Criteria Present: Lactic Acid > 2 mmol/L and New/Unexplained change in mental status Supportive Findings: Patient has CT evidence of left staghorn calculus with pelvocaliectasis with leukocytosis of 19K and Left-shift of 1.5% with altered mental status noted on admission. Fluid Resuscitation Fluid resuscitation indicated?: Yes Fluid Resuscitation ordered: 30 ml/kg fluid bolus ordered Amount of fluid ordered: 3 Sepsis Note Date exam was performed: 09/05/24 Time exam was performed: 06:00 Sepsis Attestation: Sepsis re-evaluation was performed Response to fluids: Fluid responsive hypotension Charges/Coding Visit Charges Inpatient E&M: 33815 Init Hosp L3
[2024-09-05 02:25] LABS: Thyroid Stim Hormone (TSH) 0.826 uIU/mL (0.358-3.740)
[2024-09-05] MEDS: 0.9% Normal Saline (1000mL) 1,000 ML 999 ML IV ×3 (04:14→06:19)
[2024-09-05] MEDS: Morphine 2 MG/ML Syringe IV ×2 (04:46→08:56)
[2024-09-05] MEDS: 0.9% Saline Lock 10 ML Syringe IV ×2 (04:47→21:20)
[2024-09-05] MEDS: Lactulose 20 GM/30 ML UDC PO ×3 (06:13→21:04)
[2024-09-05 06:14] LABS: Lactic Acid 3.2 mmol/L (0.4-1.9)
[2024-09-05] MEDS: Insulin Lispro 100 UNIT/ML INSULN.PEN SC ×3 (06:18→17:11)
[2024-09-05 06:49] LABS: Bedside Glucose 226 mg/dL (74-106)
[2024-09-05 06:55] LABS: PSA,Total - Annual Screen 1.41 ng/mL (0.00-4.00)
--- NOTE | 2024-09-05 07:56 | PCM.PN.HOSP ---
Reason for Visit Reason for Visit: Diagnoses Elevated white blood cell count, unspecified (09/05/24) Obesity, unspecified (09/05/24) Other disorders of bilirubin metabolism (09/05/24) Acidosis, unspecified (09/05/24) Obstructive sleep apnea (adult) (pediatric) (09/05/24) Other chronic pain (09/05/24) Metabolic encephalopathy (09/05/24) Other hypotension (09/05/24) Unspecified cirrhosis of liver (09/05/24) Nonalcoholic steatohepatitis (HARRIS) (09/05/24) Low back pain, unspecified (09/05/24) Calculus of kidney (09/05/24) Disorder of kidney and ureter, unspecified (09/05/24) Acute cystitis with hematuria (09/05/24) Difficulty in walking, not elsewhere classified (09/05/24) Weakness (09/05/24) Objective Data Objective Data Vital Signs: Vital Signs Temp Pulse Resp BP Pulse Ox O2 Del Method 98.6 F 81 19 H 115/69 99 Room Air 09/05/24 04:00 09/05/24 07:00 09/05/24 07:00 09/05/24 07:00 09/05/24 07:00 09/05/24 07:00 Oxygen Delivery Method Room Air Weight: 231 lb 11.293 oz Body Mass Index (BMI) 34.2 Intake & Output: Intake and Output for Last 24 Hours 09/03/24 09/04/24 09/05/24 23:59 23:59 23:59 Intake Total 3050 / 3050 Output Total 0 / 0 Balance 3050 / 3050 Lab / Micro Data 09/04/24 23:07 09/04/24 23:07 Labs: Laboratory Results - last 24 hr 09/04/24 21:27: POC Glucose 247 H 09/04/24 22:48: Urine Color Yellow, Urine Clarity Clear, Urine pH 6.0, Ur Specific [place] 1.020, Urine Protein 30 H, Urine Glucose (UA) Normal, Urine Ketones Negative, Urine Occult Blood 150 H, Urine Nitrite Negative, Urine Bilirubin 1 H, Urine Urobilinogen 1 H, Ur Leukocyte Esterase 100 H, Urine RBC 10-25 SEEN, Urine WBC 5-10 SEEN, Ur Squamous Epith Cells 0 SEEN, Urine Bacteria 0 SEEN, Urine Mucus 0 SEEN, Urine Opiates Screen POSITIVE H, Urine Methadone Screen NEGATIVE, Ur Barbiturates Screen NEGATIVE, Ur Phencyclidine Scrn NEGATIVE, Ur Amphetamines Screen NEGATIVE, MDMA (Ecstasy) Screen NEGATIVE, U Benzodiazepines Scrn NEGATIVE, Urine Cocaine Screen NEGATIVE, U Cannabinoids Screen NEGATIVE, Ur Drug Screen Comment 09/04/24 23:07: WBC 19.1 H, RBC 3.29 L, Hgb 9.4 L, Hct 28.5 L, MCV 86.6, MCH 28.6, MCHC 33.0, RDW Std Deviation 48.6 H, RDW Coeff of Francis 15.9 H, Plt Count 103 L, MPV 12.0, Immature Gran % (Auto) 1.500 H, Neut % (Auto) 84.3 H, Lymph % (Auto) 5.1 L, [place] % (Auto) 7.9, Eos % (Auto) 0.9, Baso % (Auto) 0.3, Absolute Neuts (auto) 16.1 H, Absolute Lymphs (auto) 0.98, Nucleated RBC % 0, Sodium 132 L, Potassium 4.0, Chloride 104, Carbon Dioxide 18.0 L, Anion Gap 10, BUN 22 H, Creatinine 1.82 H, Estim Creat Clear Calc 53.57, Est GFR (MDRD) Af Amer 49 L, Est GFR (MDRD) Non-Af 41 L, BUN/Creatinine Ratio 12.1, Glucose 252 H, Calcium 8.5, Total Bilirubin 3.10 H, Direct Bilirubin 1.80 H, AST 156 H, ALT 79 H, Alkaline Phosphatase 269 H, Ammonia 26.0, Total Protein 6.1 L, Albumin 2.0 L, Globulin 4.1, PSA Screen 1.41, TSH 0.826 09/05/24 05:23: Lactic Acid 3.2 H* 09/05/24 06:18: POC Glucose 226 H Radiography Diagnostic Testing: Radiology Impression Abdomen/Pelvis CT 09/04/24 23:30 IMPRESSION: 1. Cirrhosis with severe ascites. 2. 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 3. Marked splenomegaly. 4. Cholelithiasis. Pericholecystic edema can be seen with ascites. 5. Left staghorn calculus with pelvicaliectasis. 6. Suspicion of small left renal cyst. 7. Chronic prostatitis. Small prostate gland. 8. Anasarca. 9. Fluid-filled ventral hernia. 10. Fluid filled bilateral inguinal hernias. 11. Other nonacute findings detailed above. Reading Location: [facility] Physical Exam Narrative Seen and examined. Patient is morbidly obese. Admitted with the left flank pain with radiation to lower back and anterior abdominal For about 1 week Still complaining of left abdominal pain. No abdominal Physical exam: General: Alert, Oriented x3, Cooperative. Obesity grade 1 BMI 34.2 kg/m? HEENT: Atraumatic, PERRLA, EOMI, Normocephalic Oral: Deep oropharyngeal structures not visualized Neck: Supple, No JVD, Negative Carotid Bruits Chest wall/Lungs: Air entry diminished in bilateral lung bases. No crepitation/rhonchi Cardiovascular: Regular rate, Regular Rhythm, Normal S1, Normal S2, systolic murmur Abdomen: Bowel Sounds Present, Soft, left flank tenderness Non-Distended : Tenderness present over left renal area and anterior abdominal wall. Dark-colored/mustard color urine no dysuria. No suprapubic tenderness. Extremities: No edema, Capillary Refill Less than 3 Seconds Skin: No rashes, No breakdown Musculoskeletal: No Tenderness to Palpation of Joints or Extremities Neurological: Cranial nerves II-XII grossly intact, DTR 2+/4. No acute focal neurological deficit. Psych/Mental Status: Flat affect Assessment & Plan Assessment/Plan (1) Staghorn calculus: (2) Acute cystitis with hematuria: (3) Lactic acidosis: (4) Metabolic encephalopathy: (5) Liver cirrhosis secondary to HARRIS (nonalcoholic steatohepatitis): (6) Chronic hypotension: PLAN: Plan 59-year-old gentleman was brought to ED by EMS for worsening back pain and abdominal pain for about a week. No nausea vomiting, fever or chill. 1. Back pain/abdominal pain: Patient did not had tachycardia, hypotension but mild tachypnea with no hypoxia. Patient has leukocytosis with immature granulocytes 1.5% suggestive of left shift but he had on 09/02 prior to discharge. Lactic acidosis, lactic acid 3.2. Started on IV Zosyn empirically. Urologist consulted. Patient had left ureteric stent inserted. On pain control. Patient does not meet criteria for sepsis. 2. Acute Metabolic Encephalopathy with UDS positive for opiates: Acute metabolic encephalopathy resolved. 3. Recent admission here from August 29, 2024 to September 02, 2024 due to hepatic encephalopathy from decompensated nonalcoholic, MASLD cirrhosis. 4. History of nonalcoholic cirrhotic liver disease with corresponding laboratory findings of Hyperbilirubinemia with total bilirubin of 3.1 mg/dL, direct bilirubin of 1.8 mg/dL, AST 156 units/L, ALT of 79 units/L, alkaline phosphatase of 269 units/L and normal-range ammonia level of 26 ?mol/L adding to the medical complexity of #1 - #3 - Continue current treatment and check CMP daily to follow trend. 5. Obesity; with BMI of 35.1 this admission and ABBY; on CPAP adding to the burden of disease outlined from #1 - #4- Weight loss will be recommended when sensorium clears. Check TSH. This complicates his case and may hamper recovery. 6. OA; with chronic back pain complicated by mechanical fall on August 21, 2024 with a ED visit at that time showing acute on chronic lumbar spine discomfort with otherwise unremarkable ED evaluation but patient noted to have severe pain with ambulation this admission consistent with acute Generalized Weakness with Ambulatory Dysfunction likely triggered by #1 - #5 - Give acetaminophen prn. PT/OT and Case Management to consult and treat on-rounds in AM for further recommendations with help appreciated in advance. 7. Chronic Hypotension; on midodrine 3 times daily - Resume midodrine as previous. 8. Former tobacco abuse (quit 2023) - Noted. 9. DM-2; of unknown control on insulin glargine 10 units SQ twice daily - NPO for now. FSBS q. 6h plus lowest intensity SSI. Check hemoglobin A1c to objectively assess quality of diabetic control. 10. History of tobacco abuse - Noted. 11. Chronic Anemia/Thrombocytopenia; presumed to be due to underlying liver disease - Stable with hemoglobin of 9.4 g/dL, MCV of 86.6 fL and thrombocytopenia of 103K present on admission which approximates his baseline levels. 12. DVT prophylaxis - SCD's only with possible impending urologic procedure. Charges/Coding Visit Charges Inpatient E&M: 54819 Subs Hosp L3
[2024-09-05 08:27] LABS: Lactic Acid 2.3 mmol/L (0.4-1.9)
--- NOTE | 2024-09-05 09:01 | PRE.ANES_ITS ---
ASA Classification* ASA Classification ASA Classification: 3 and E Assessment & Plan Anesthesia* Anesthesia Assessment Anesthesia Assessment: Discussed sedation and/or anesthesia options, risks, benefits, and alternatives with patient/parents/legal guardian/POA. Questions invited. The patient/parents/legal guardian/POA seems to understand and agrees to proceed with anesthesia plan. Reviewed the physical assessment, medical history, allergy history and patient home medications list prior to surgery/procedure/anesthetic and documented any changes. Performed airway and anesthesia risk assessments. Anesthesia Type Anesthesia Type: MAC Anesthesia Focused Assessment* Temperature: 99.1 F Pulse Rate: 81 Blood Pressure: 129/67 Respiratory Rate: 22 Pulse Ox: 100 Airway Assessment Mouth opens: >3 cm Mallampati Score: II Focused Labs Anesthesia Preop lab: CBC WBC 19.1 K/mm3 (4.4-11.0) H 09/04/24 23: 5 RBC 3.29 M/mm3 (4.6-6.2) L 09/04/24 23:07 09/04/24 Hgb 9.4 g/dL (13.0-16.5) L 09/04/24 23:07 09/04/24 Hct 28.5 % (40-54) L 09/04/24 23:09/04/24 Plt Count 103 K/mm3 (150-450) L 09/04/24 23:07 09/04/24 CHEMISTRY Potassium 4.0 mmol/L (3.5-5.1) 09/04/24 23:09/04/24 Sodium 132 mmol/L (136-145) L 09/04/24 23:07 09/04/24 Magnesium 2.7 mg/dL (1.6-2.6) H 08/29/24 14:56 08/29/24 Phosphorus 4.9 mg/dL (2.5-4.9) 08/29/24 14:56 08/29/24 BUN 22 mg/dL (7-18) H 09/04/24 23:07 09/04/24 Creatinine 1.82 mg/dL (0.70-1.30) H 09/04/24 23: Glucose 252 mg/dL (74-106) H 09/04/24 23:09/04/24 POC Glucose 226 mg/dL (74-106) H 09/05/24 06:18 09/05/24 TSH 0.826 uIU/mL (0.358-3.740) 09/04/24 23:07 08/28 COAG PT 20.0 SECONDS (11.7-14.9) H 08/29/24 14:56 08/05 01/26 Pre-Assessment Diagnosis/Proposed Procedure Planned Operative Procedure(s): Cystoscopy, stent placement 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 - scientific database curator: 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 - scientific database curator Hx Hospitalization Any Problems With Anesthesia Cholinesterase deficiency You/Your Family Experience fever (hyperthermia) with Relationship Recent Exposure to Contagious Disease Does patient have nerve stimulator Patient instructed to have device shut off --Does patient have Pacemaker or ICD? When Was Last Pacemaker Check QUESTION #4 FULL TEXT: You/Your Family Experience fever (hyperthermia) with Anesthesia Last Oral Intake Last Oral intake: Last Oral Intake NPO since Meds taken in AM with sips of water? Meds patient instructed to take am of surgery PONV PONV - scientific database curator: PONV - scientific database curator Female HX of Motion Sickness HX of N/V After Surgery Non-Smoker Duration of Surgery greater than 60 minutes Number of Risk Factors PONV Score Height & Weight Height & Weight: Anesthesia: Height & Weight Height 5 ft 9 in 09/05/24 03:46 Weight: 105.1 kg 09/05/24 05:16 Body Mass Index (BMI) 34.2 09/05/24 05:16 Respiratory Assessment Respiratory Assessment - scientific database curator: Respiratory Tract Infection Hx - scientific database curator Hx Respiratory Tract Infection STOP Sleep Apnea STOP Sleep Apnea - scientific database curator: STOP Sleep Apnea - scientific database curator Hx Hypertension No 09/05/24 03:42 Hx Sleep Apnea Yes 09/05/24 03:42 CPAP No 09/05/24 03:42 BIPAP No 09/05/24 03:42 Do you snore loudly (louder than talking or can be heard Do you often feel tired/ fatigued/ sleepy during daytime? Has anyone observed you stop breathing during sleep? STOP Results Positive 09/05/24 03:42 QUESTION #5 FULL TEXT : Do you snore loudly (louder than talking or can be heard through closed doors)? Tobacco Use History Tobacco Use History - scientific database curator: Tobacco Use History - scientific database curator Tobacco Use Smoking Status Former smoker 09/05/24 03:42 Hx Tobacco Use Yes 09/05/24 03:42 Years Smoking Packs Smoked per Day Smoking Cessation Date was Yes - quit smoking within 15 09/05/24 03:42 within the last 15 years years Hx Smoking Cessation Date 05/04/24 09/05/24 03:42 Hx Smoking Cessation Counseling Hematologic Medial History Hematologic Hx - scientific database curator: Hematologic Medical Hx - director trial Hx of Blood Transfusion No 09/05/24 03:42 Hx of Transfusion in last 3 No 09/05/24 03:42 Months Date of Last Transfusion (if within last 3 months) Ever experience any problems No 09/05/24 03:42 with transfusion(s)? Specify any problems Hx of Preganancy in last 3 N/A 09/05/24 03:42 Months Nurse Filling Out Transfusion JLAMP 09/05/24 03:42 & Questions: Date: 09/05/24 09/05/24 03:42 Time: 03:44 09/05/24 03:42 Patient unable to answer at this time (ie. confused, unrespo /Reproduction History /Reproductive History - scientific database curator: /Reproductive Hx- scientific database curator Hx Now Gestational Age (in weeks): EDC: Hx Hx Para Hx Section SAB Active Medications Active Medications: Current Medications Generic Name Dose Route Start Last Admin Trade Name Freq PRN Reason Stop Dose Admin Acetaminophen 650 mg 09/05/24 03:56 Acetaminophen 650 Mg Suppository RC Q6H PRN PRN Pain 1-5/10 or Fever Glucagon 1 mg 09/05/24 03:56 Glucagon 1 Mg/Ml Syringe IM X1 PRN Hypoglycemia Protocol Piperacillin Sod/Tazobactam 50 mls @ 12.5 mls/hr 09/05/24 06:00 09/05/24 06:13 Sod 3.375 gm/ Sodium Chloride IV 12.5 mls/hr Q8 KRYSTIN Administration Pantoprazole Sodium 40 mg/ 110 mls @ 330 mls/hr 09/05/24 10:00 Sodium Chloride IV DAILY KRYSTIN Dextrose 250 mls @ 0 mls/hr 09/05/24 03:56 Dextrose 10%-Water IV .Q0M PRN HYPOGLYCEMIA Protocol As Directed Insulin Human Lispro 0 unit 09/05/24 06:00 09/05/24 06:18 Insulin Lispro 100 Unit/Ml Insuln.Pen SC 2 unit Q6 KRYSTIN Administration Protocol Lactulose 20 gm 09/05/24 06:00 09/05/24 06:13 Lactulose 20 Gm/30 Ml Udc PO 20 gm Q8 KRYSTIN Administration Lidocaine 3 patch 09/05/24 10:00 Lidocaine 5% Patch TOPICAL DAILY [facility] Protocol Midodrine 10 mg 09/05/24 08:00 09/05/24 08:54 Midodrine Hcl 5 Mg Tablet PO Not Given TIDCM [facility] Morphine Sulfate 2 mg 09/05/24 03:56 09/05/24 08:56 Morphine 2 Mg/Ml Syringe IV 2 mg Q4H PRN PRN Administration Pain Score 6-10 Ondansetron HCl 4 mg 09/05/24 03:56 Ondansetron 4 Mg/2 Ml Vial IV Q4H PRN PRN NAUSEA/VOMITING Promethazine HCl 12.5 mg 09/05/24 03:56 Promethazine 25 Mg/Ml Syringe IM Q4H PRN PRN BREAKTHROUGH NAUSEA Rifaximin 550 mg 09/05/24 10:00 Rifaximin 550 Mg Tablet PO BID [facility] Sodium Chloride 10 - 40 ml 09/05/24 03:48 09/05/24 04:47 0.9% Saline Lock 10 Ml Syringe IV 30 ml UD PRN Administration SALINE FLUSH PFSH Medical History Hyperbilirubinemia Liver cirrhosis secondary to HARRIS (nonalcoholic steatohepatitis) HLD (hyperlipidemia) HTN (hypertension) Thrombocytopenia Chronic anemia Former tobacco use Diabetes mellitus, type 2 ABBY on CPAP Back pain Home Medications ?Medication ?Instructions ?Recorded ?Last Taken ?Type hydrocodone-acetaminophen 5-325mg 1 tab PO Q4H PRN PRN Pain Score 09/02/24 Unknown Rx 5mg-325mg 1-10 7 days #30 tabs insulin glargine-yfgn 100 unit/mL 10 unit (0.1 mL) sub cut BID #5 pens 09/02/24 Unknown Rx (3 mL) subcutaneous pen lactulose 10 gram/15 mL oral 20 g (30 mL) PO Q8 #1,419 mL 09/02/24 Unknown Rx solution lidocaine 5 % topical patch 3 patch topical DAILY #90 ea 09/02/24 Unknown Rx midodrine 5 mg tablet 10 mg (2 x 5 mg) PO TIDCM #9 0 tabs 09/02/24 Unknown Rx pantoprazole 40 mg tablet,delayed 40 mg PO BID #60 tab s 09/02/24 Unknown Rx release rifaximin 550 mg tablet (Xifaxan) 550 mg PO BID #60 ta bs 09/02/24 Unknown Rx Allergy/AdvReac Type Severity Reaction Status Date / Time No Known Allergies Allergy Verified 09/04/24 21:19 Family History Mother Heart disease Hypertension CAD (coronary artery disease) Myocardial infarction Father Hypertension Heart disease Heart failure Surgical History History of tonsillectomy and adenoidectomy Social History household members: significant other Smoking Status: Former smoker how long ago did patient quit smoking: Quit ~ 3-4 months prior (fall 2023), smoked 1.5 ppd since teen until quit. alcohol intake: never substance use type: does not use Review of Systems (Anesthesia) ROS Narrative System reviewed and no additional complaints, except as documented.
--- NOTE | 2024-09-05 09:09 | CON.PCM.UR_ITS ---
Assessment & Plan Assessment/Plan (1) Chronic hypotension: (2) Acute cystitis with hematuria: (3) Lactic acidosis: (4) Ambulatory dysfunction: (5) Staghorn calculus: PLAN: Plan for cystoscopy and left stent placement for infected staghorn calculus once the infection is cleared then we will proceed with laser lithotripsy later on to treat the stone may require more than 1 surgery can such a large stone. HPI Consult Data Date of Consult: 09/05/24 HPI Narrative Reason for Consultation: Staghorn calculus on the left with infection HPI Narrative: FRANKLIN ARCHULETA, is a 59 M who presents to the hospital with infection leukocytosis lactic acid in the inflammatory response to an infection with sepsis he is in the ICU, plan to taken to surgery today for cystoscopy and left stent placement for the obstruction and for the infected stone will probably plan to treat the infected infected stone later on. [facility] Medical History Hyperbilirubinemia Liver cirrhosis secondary to HARRIS (nonalcoholic steatohepatitis) HLD (hyperlipidemia) HTN (hypertension) Thrombocytopenia Chronic anemia Former tobacco use Diabetes mellitus, type 2 ABBY on CPAP Back pain Home Medications ?Medication ?Instructions ?Recorded ?Last Taken ?Type hydrocodone-acetaminophen 5-325mg 1 tab PO Q4H PRN PRN Pain Score 09/02/24 Unknown Rx 5mg-325mg 1-10 7 days #30 tabs insulin glargine-yfgn 100 unit/mL 10 unit (0.1 mL) sub cut BID #5 pens 09/02/24 Unknown Rx (3 mL) subcutaneous pen lactulose 10 gram/15 mL oral 20 g (30 mL) PO Q8 #1,419 mL 09/02/24 Unknown Rx solution lidocaine 5 % topical patch 3 patch topical DAILY #90 ea 09/02/24 Unknown Rx midodrine 5 mg tablet 10 mg (2 x 5 mg) PO TIDCM #9 0 tabs 09/02/24 Unknown Rx pantoprazole 40 mg tablet,delayed 40 mg PO BID #60 tab s 09/02/24 Unknown Rx release rifaximin 550 mg tablet (Xifaxan) 550 mg PO BID #60 ta bs 09/02/24 Unknown Rx Allergy/AdvReac Type Severity Reaction Status Date / Time No Known Allergies Allergy Verified 09/04/24 21:19 Family History Mother Heart disease Hypertension CAD (coronary artery disease) Myocardial infarction Father Hypertension Heart disease Heart failure Surgical History History of tonsillectomy and adenoidectomy Social History household members: significant other Smoking Status: Former smoker how long ago did patient quit smoking: Quit ~ 3-4 months prior (fall 2023), smoked 1.5 ppd since teen until quit. alcohol intake: never substance use type: does not use Lab / Micro Data 09/04/24 23:07 09/04/24 23:07 Labs: Laboratory Results - last 24 hr 09/04/24 21:27: POC Glucose 247 H 09/04/24 22:48: Urine Color Yellow, Urine Clarity Clear, Urine pH 6.0, Ur Specific [place] 1.020, Urine Protein 30 H, Urine Glucose (UA) Normal, Urine Ketones Negative, Urine Occult Blood 150 H, Urine Nitrite Negative, Urine Bilirubin 1 H, Urine Urobilinogen 1 H, Ur Leukocyte Esterase 100 H, Urine RBC 10-25 SEEN, Urine WBC 5-10 SEEN, Ur Squamous Epith Cells 0 SEEN, Urine Bacteria 0 SEEN, Urine Mucus 0 SEEN, Urine Opiates Screen POSITIVE H, Urine Methadone Screen NEGATIVE, Ur Barbiturates Screen NEGATIVE, Ur Phencyclidine Scrn NEGATIVE, Ur Amphetamines Screen NEGATIVE, MDMA (Ecstasy) Screen NEGATIVE, U Benzodiazepines Scrn NEGATIVE, Urine Cocaine Screen NEGATIVE, U Cannabinoids Screen NEGATIVE, Ur Drug Screen Comment 09/04/24 23:07: WBC 19.1 H, RBC 3.29 L, Hgb 9.4 L, Hct 28.5 L, MCV 86.6, MCH 28.6, MCHC 33.0, RDW Std Deviation 48.6 H, RDW Coeff of Francis 15.9 H, Plt Count 103 L, MPV 12.0, Immature Gran % (Auto) 1.500 H, Neut % (Auto) 84.3 H, Lymph % (Auto) 5.1 L, [place] % (Auto) 7.9, Eos % (Auto) 0.9, Baso % (Auto) 0.3, Absolute Neuts (auto) 16.1 H, Absolute Lymphs (auto) 0.98, Nucleated RBC % 0, Sodium 132 L, Potassium 4.0, Chloride 104, Carbon Dioxide 18.0 L, Anion Gap 10, BUN 22 H, C reatinine 1.82 H, Estim Creat Clear Calc 53.57, Est GFR (MDRD) Af Amer 49 L, Est GFR (MDRD) Non-Af 41 L, BUN/Creatinine Ratio 12.1, Glucose 252 H, Calcium 8.5, T otal Bilirubin 3.10 H, Direct Bilirubin 1.80 H, AST 156 H, ALT 79 H, Alkaline Phosphatase 269 H, Ammonia 26.0, Total Protein 6.1 L, Albumin 2.0 L, Globulin 4.1, PSA Screen 1.41, TSH 0.826 09/05/24 05:23: Lactic Acid 3.2 H* 09/05/24 06:18: POC Glucose 226 H 09/05/24 07:45: Lactic Acid 2.3 H*, Folate 30.10, Ethyl Alcohol 4.0 Imaging Radiology Impression Abdomen/Pelvis CT 09/04/24 23:30 IMPRESSION: 1. Cirrhosis with severe ascites. 2. 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 3. Marked splenomegaly. 4. Cholelithiasis. Pericholecystic edema can be seen with ascites. 5. Left staghorn calculus with pelvicaliectasis. 6. Suspicion of small left renal cyst. 7. Chronic prostatitis. Small prostate gland. 8. Anasarca. 9. Fluid-filled ventral hernia. 10. Fluid filled bilateral inguinal hernias. 11. Other nonacute findings detailed above. Reading Location: [facility]
--- NOTE | 2024-09-05 09:17 | NURSING ---
Patient taken to PACU, report given.
[2024-09-05 09:31] LABS: Reflex Lactate? Y
--- NOTE | 2024-09-05 10:31 | PCM.OPRPT ---
Operative Report (Standard) Operative Information Date of Procedure: 09/05/24 Pre-Operative Diagnosis: Left staghorn calculus infected Post-Operative Diagnosis: The same Surgery/Procedure Performed: Cystoscopy and stent placement community aide: No Type of Anesthesia: MAC and Topical Anesth RN Documented Start/Stop Times: Operation Date: 09/05/24 10:10 Case Time Into Pre-Op 09/05/24 09:15 Anesthesia Start 09/05/24 10:16 Into Room 09/05/24 10:16 Procedure Start 09/05/24 10:25 Procedure Start Time: 10:16 Procedure Stop Time: 10:32 Select all DRAINS/GRAFTS/IMPLANTS that apply: Drains Drain details: Left stent placement Estimated Blood Loss: None Specimen collected: No Description of surgery: Patient was taken back to the operating room after induction of general anesthesia, the patient was placed in dorsolithotomy position. The urethra and genitals were prepped and draped in usual sterile fashion. Using a 21 Japanese rigid cystourethroscope the entire length of the urethra was normal then went into the bladder. Identified the trigone the left and right ureteral orifice. I then cannulated the left ureteral orifice and advanced a wire up into the kidney. I then backloaded a 5 Japanese open ended catheter over the wire and injected contrast to delineate the anatomy. After the retrograde was performed I then used fluoroscopic images and guidance to advanced a wire up into the kidney and over the 0.038 glidewire I advanced a 6 Japanese by 26 cm double pigtail stent. I then pulled the 0.038 Glidewire off and the stent coiled in the kidney bladder good position. The bladder was then drained. We confirmed the position of the stent by fluoroscopy. Patient anesthetic was reversed and was taken back to the PACU in good condition. Surgical Findings: Staghorn calculus left side Complications Complications: No Admit VTE Documentation VTE Present on Admission: No VTE Mechan Device Prophylaxis: SCD's VTE Pharm Prophylaxis ordered?: No
[2024-09-05] MEDS: Lidocaine 5% Patch 3 PATCH TOPICAL (11:19)
[2024-09-05] MEDS: Pantoprazole Sodium 40 MG in 0.9% Normal Saline (100mL MB+) 100 ML 330 MG IV (11:22)
[2024-09-05 11:51] LABS: Reflex Lactate? Y
[2024-09-05] MEDS: HYDROmorphone 0.5 MG/0.5 ML SYRINGE 1 MG IV ×2 (12:30→21:20)
[2024-09-05 12:57] LABS: Bedside Glucose 166 mg/dL (74-106)
--- NOTE | 2024-09-05 15:05 | CPS ---
Spoke with patient concerning CPAP. He has a CPAP machine at home and he did not think anyone could bring it in. He is also not sure of his pressure setting or mask size, but he does use a full face mask. Patient informed a CPAP unit will be available tonight for him as ordered. RN aware.
[2024-09-05 17:34] LABS: Bedside Glucose 169 mg/dL (74-106)
--- NOTE | 2024-09-05 18:15 | CON.PCM.CC_ITS ---
HPI Consult Data Date of Consult: 09/05/24 HPI Narrative HPI Narrative: FRANKLIN ARCHULETA, is a 59 M who presents [facility] Medical History Hyperbilirubinemia Liver cirrhosis secondary to HARRIS (nonalcoholic steatohepatitis) HLD (hyperlipidemia) HTN (hypertension) Thrombocytopenia Chronic anemia Former tobacco use Diabetes mellitus, type 2 ABBY on CPAP Back pain Home Medications ?Medication ?Instructions ?Recorded ?Last Taken ?Type hydrocodone-acetaminophen 5-325mg 1 tab PO Q4H PRN PRN Pain Score 09/02/24 Unknown Rx 5mg-325mg 1-10 7 days #30 tabs insulin glargine-yfgn 100 unit/mL 10 unit (0.1 mL) sub cut BID #5 pens 09/02/24 Unknown Rx (3 mL) subcutaneous pen lactulose 10 gram/15 mL oral 20 g (30 mL) PO Q8 #1,419 mL 09/02/24 Unknown Rx solution lidocaine 5 % topical patch 3 patch topical DAILY #90 ea 09/02/24 Unknown Rx midodrine 5 mg tablet 10 mg (2 x 5 mg) PO TIDCM #9 0 tabs 09/02/24 Unknown Rx pantoprazole 40 mg tablet,delayed 40 mg PO BID #60 tab s 09/02/24 Unknown Rx release rifaximin 550 mg tablet (Xifaxan) 550 mg PO BID #60 ta bs 09/02/24 Unknown Rx Allergy/AdvReac Type Severity Reaction Status Date / Time No Known Allergies Allergy Verified 09/04/24 21:19 Family History Mother Heart disease Hypertension CAD (coronary artery disease) Myocardial infarction Father Hypertension Heart disease Heart failure Surgical History History of tonsillectomy and adenoidectomy Social History household members: significant other Smoking Status: Former smoker how long ago did patient quit smoking: Quit ~ 3-4 months prior (fall 2023), smoked 1.5 ppd since teen until quit. alcohol intake: never substance use type: does not use Objective Data Objective Data Vital Signs: Vital Signs Last response 3 Temperature 36.7 C 09/05/24 16:00 Temperature Source Temporal 09/05/24 16:00 Pulse Rate 99 09/05/24 17:00 Pulse Strength Normal (2+) 09/05/24 11:00 Respiratory Rate 17 09/05/24 17:00 Respiratory Effort Normal, Non-Labored 09/05/24 16:15 Respiratory Depth Normal 09/05/24 16:15 Respiratory Pattern Normal 09/05/24 16:15 Blood Pressure 125/82 H 09/05/24 17:00 Blood Pressure Mean 96 09/05/24 17:00 Blood Pressure Source Monitor 09/05/24 17:00 Blood Pressure Position Semi-Fowlers 09/05/24 17:00 Blood Pressure Location Right Arm 09/05/24 17:00 Pulse Ox 95 09/05/24 17:00 Oxygen Delivery Method Room Air 09/05/24 17:00 I&O: I&O Last 24 Hours 3 09/04/24 09/05/24 09/05/24 23:59 11:59 23:59 Intake Total 3210 / 3260 50 / 3260 Output Total 100 / 300 200 / 300 Balance 3110 / 2960 -150 / 2960 I&O: Total Stay 3 09/04/24 21:19 thru 09/05/24 18:07 Intake Total 3260 Output Total 300 Balance 2960 Current Meds Ordered / Administered: Current meds ordered / Administered 3 Generic Name Dose Route Start Last Admin Trade Name Freq PRN Reason Stop Dose Admin Acetaminophen 650 mg 09/05/24 03:56 Acetaminophen 650 Mg Suppository RC Q6H PRN PRN Pain 1-5/10 or Fever Glucagon 1 mg 09/05/24 03:56 Glucagon 1 Mg/Ml Syringe IM X1 PRN Hypoglycemia Protocol Hydromorphone HCl 1 mg 09/05/24 11:41 09/05/24 12:30 Hydromorphone 0.5 Mg/0.5 Ml Syringe IV 1 mg Q4H PRN PRN Administration Pain Score 6-10 or Pre PT/OT Piperacillin Sod/Tazobactam 50 mls @ 12.5 mls/hr 09/05/24 06:00 09/05/24 18:07 Sod 3.375 gm/ Sodium Chloride IV Infused Q8 KRYSTIN Infusion Pantoprazole Sodium 40 mg/ 110 mls @ 330 mls/hr 09/05/24 10:00 09/05/24 11:45 Sodium Chloride IV Infused DAILY [facility] Infusion Dextrose 250 mls @ 0 mls/hr 09/05/24 03:56 Dextrose 10%-Water IV .Q0M PRN HYPOGLYCEMIA Protocol As Directed Insulin Human Lispro 0 unit 09/05/24 06:00 09/05/24 17:11 Insulin Lispro 100 Unit/Ml Insuln.Pen SC 1 unit Q6 KRYSTIN Administration Protocol Lactulose 20 gm 09/05/24 06:00 09/05/24 15:03 Lactulose 20 Gm/30 Ml Udc PO 20 gm Q8 KRYSTIN Administration Lidocaine 3 patch 09/05/24 10:00 09/05/24 11:19 Lidocaine 5% Patch TOPICAL 3 patch DAILY [facility] Administration Protocol Midodrine 10 mg 09/05/24 08:00 09/05/24 17:07 Midodrine Hcl 5 Mg Tablet PO Not Given TIDCM [facility] Ondansetron HCl 4 mg 09/05/24 03:56 Ondansetron 4 Mg/2 Ml Vial IV Q4H PRN PRN NAUSEA/VOMITING Promethazine HCl 12.5 mg 09/05/24 03:56 Promethazine 25 Mg/Ml Syringe IM Q4H PRN PRN BREAKTHROUGH NAUSEA Rifaximin 550 mg 09/05/24 10:00 09/05/24 11:34 Rifaximin 550 Mg Tablet PO Not Given BID [facility] Sodium Chloride 10 - 40 ml 09/05/24 03:48 09/05/24 04:47 0.9% Saline Lock 10 Ml Syringe IV 30 ml UD PRN Administration SALINE FLUSH Lab / Micro Data 09/04/24 23:07 09/04/24 23:07 Labs: Laboratory Results - last 24 hr 09/04/24 21:27: POC Glucose 247 H 09/04/24 22:48: Urine Color Yellow, Urine Clarity Clear, Urine pH 6.0, Ur Specific [place] 1.020, Urine Protein 30 H, Urine Glucose (UA) Normal, Urine Ketones Negative, Urine Occult Blood 150 H, Urine Nitrite Negative, Urine Bilirubin 1 H, Urine Urobilinogen 1 H, Ur Leukocyte Esterase 100 H, Urine RBC 10-25 SEEN, Urine WBC 5-10 SEEN, Ur Squamous Epith Cells 0 SEEN, Urine Bacteria 0 SEEN, Urine Mucus 0 SEEN, Urine Opiates Screen POSITIVE H, Urine Methadone Screen NEGATIVE, Ur Barbiturates Screen NEGATIVE, Ur Phencyclidine Scrn NEGATIVE, Ur Amphetamines Screen NEGATIVE, MDMA (Ecstasy) Screen NEGATIVE, U Benzodiazepines Scrn NEGATIVE, Urine Cocaine Screen NEGATIVE, U Cannabinoids Screen NEGATIVE, Ur Drug Screen Comment 09/04/24 23:07: WBC 19.1 H, RBC 3.29 L, Hgb 9.4 L, Hct 28.5 L, MCV 86.6, MCH 28.6, MCHC 33.0, RDW Std Deviation 48.6 H, RDW Coeff of Francis 15.9 H, Plt Count 103 L, MPV 12.0, Immature Gran % (Auto) 1.500 H, Neut % (Auto) 84.3 H, Lymph % (Auto) 5.1 L, [place] % (Auto) 7.9, Eos % (Auto) 0.9, Baso % (Auto) 0.3, Absolute Neuts (auto) 16.1 H, Absolute Lymphs (auto) 0.98, Nucleated RBC % 0, Sodium 132 L, Potassium 4.0, Chloride 104, Carbon Dioxide 18.0 L, Anion Gap 10, BUN 22 H, C reatinine 1.82 H, Estim Creat Clear Calc 53.57, Est GFR (MDRD) Af Amer 49 L, Est GFR (MDRD) Non-Af 41 L, BUN/Creatinine Ratio 12.1, Glucose 252 H, Calcium 8.5, T otal Bilirubin 3.10 H, Direct Bilirubin 1.80 H, AST 156 H, ALT 79 H, Alkaline Phosphatase 269 H, Ammonia 26.0, Total Protein 6.1 L, Albumin 2.0 L, Globulin 4.1, PSA Screen 1.41, TSH 0.826 09/05/24 05:23: Lactic Acid 3.2 H* 09/05/24 06:18: POC Glucose 226 H 09/05/24 07:45: Lactic Acid 2.3 H*, Folate 30.10, Ethyl Alcohol 4.0 09/05/24 12:36: POC Glucose 166 H 09/05/24 17:10: POC Glucose 169 H Imaging Radiology Impression Abdomen/Pelvis CT 09/04/24 23:30 IMPRESSION: 1. Cirrhosis with severe ascites. 2. 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 3. Marked splenomegaly. 4. Cholelithiasis. Pericholecystic edema can be seen with ascites. 5. Left staghorn calculus with pelvicaliectasis. 6. Suspicion of small left renal cyst. 7. Chronic prostatitis. Small prostate gland. 8. Anasarca. 9. Fluid-filled ventral hernia. 10. Fluid filled bilateral inguinal hernias. 11. Other nonacute findings detailed above. Reading Location: [facility] Assessment and Plan . Assessment and plan: 59 yo chronically ill man admitted 09/05/24 w/ back pain. CT in ED revealed left renal staghorn calculus. Lab revealed creatinine 1.8, LA 2.3, UA w/ mild pyuria, WBC 19 Seen by Urology and has undergone cystoscopy w/ placement left ureteral stent. He is awake and alert, NAD HD stable, UOP fair w/ mild hematuria CX pending He is in NAD COR RRR CHEST CTA ABD soft EXT minimal edema RUPERT NF IMP 1. Extensive nephrolithiasis on left 2. s/p ureteral stent placement 3. Chronic liver disease 4. Renal insufficiency 5. DM REC -f/u CX - receiving ABX -follow renal function -+/- additional procedure -sq insulin The entirety of this encounter was done via Telemedicine
[2024-09-05] MEDS: rifAXIMin 550 MG Tablet PO (21:04)
[2024-09-06] VITALS (14 sets, daily range): BP systolic 107–157; BP diastolic 63–88; PULSE 84–95; RESP 8–20; TEMP 36.3–36.6; O2SAT 93–100; BMI 35.8
[2024-09-06] MEDS: Insulin Lispro 100 UNIT/ML INSULN.PEN SC ×4 (00:03→17:32)
[2024-09-06 00:24] LABS: Bedside Glucose 201 mg/dL (74-106)
[2024-09-06] MEDS: HYDROmorphone 0.5 MG/0.5 ML SYRINGE 1 MG IV ×3 (01:59→15:20)
[2024-09-06] MEDS: 0.9% Saline Lock 10 ML Syringe IV ×2 (02:00→15:20)
[2024-09-06] MEDS: Lactulose 20 GM/30 ML UDC PO ×3 (05:39→21:31)
[2024-09-06] MEDS: Piperacil/Tazobactam 3.375 GM in 0.9% Normal Saline (50mL MB+) 50 ML IV (05:39)
[2024-09-06 06:12] LABS: Bedside Glucose 173 mg/dL (74-106)
--- NOTE | 2024-09-06 07:37 | PCM.PN.INT ---
Assessment & Plan Assessment/Plan (1) Hepatic encephalopathy: (2) Hypotension: (3) ISABEL (acute kidney injury): PLAN: Plan RECOMMENDATIONS: 1. Continue antimicrobials, pending culture results. 2. Continue lactulose and rifaximin. 3. Pain regimen as ordered. 4. Encourage incentive spirometer use and mobilize patient as tolerated. 5. The patient is medically stable for transfer out of the intensive care unit. 6. Will sign off at this time. Please call with any additional questions. IMPRESSIONS: 1. Abdominal pain secondary to left staghorn calculus The patient is status post cystoscopy and stent placement, with subsequent improvement in clinical status. The patient remains on antimicrobials, pending infectious workup. He remains otherwise hemodynamically stable on room air. I have no new additional recommendations. 2. Acute kidney injury Improving. Clinical concern for prerenal etiology. Continue to monitor urine output. No current indication for renal replacement therapy. 3. History of HARRIS cirrhosis/diabetes mellitus/hyperlipidemia/prior tobacco dependency Complicates care, management, recovery and prognosis. Continue supportive measures as noted above. This note was generated with [employer] dictation software. It may contain incorrect words, spelling, and punctuation that were not noted in checking the note before signing. Subjective Subjective The patient was seen and examined at the bedside this morning. Events from the last 24 hours have been reviewed. The patient is currently afebrile, hemodynamically stable and maintaining appropriate oxygen saturations on room air. The patient is documented to be overall net +4.2 L for the hospitalization. He does have complaints of back pain. White blood cell count is elevated at 18,000 with a hemoglobin of 9.0 g/dL and platelet count of 114,000. Creatinine has improved to 1.72. Objective Data Objective Data The patient's most recent lab work, culture data and imaging studies have all been personally reviewed. Vital Signs: Vital Signs Temp Pulse Resp BP Pulse Ox O2 Del Method O2 Flow Rate 97.4 F L 87 18 117/85 H 94 Room Air 8 09/06/24 04:00 09/06/24 07:00 09/06/24 07:00 09/06/24 07:00 09/06/24 07:00 09/06/24 07:00 09/06/24 05:00 FiO2 21 09/06/24 03:55 Oxygen Flow Rate (L/min) 8 Oxygen Delivery Method Room Air Weight: 242 lb 11.663 oz Body Mass Index (BMI) 35.8 Intake & Output: Intake and Output for Last 24 Hours 09/04/24 09/05/24 09/06/24 23:59 23:59 23:59 Intake Total 3260 / 3500 1330 / 1330 Output Total 300 / 400 250 / 250 Balance 2960 / 3100 1080 / 1080 Lab / Micro Data Attestation: I reviewed the patient's lab results. 09/06/24 09:25 09/06/24 06:49 Labs: Laboratory Results - last 24 hr 09/05/24 07:45: Lactic Acid 2.3 H*, Folate 30.10, Ethyl Alcohol 4.0 09/05/24 12:36: POC Glucose 166 H 09/05/24 17:10: POC Glucose 169 H 09/06/24 00:02: POC Glucose 201 H 09/06/24 05:50: POC Glucose 173 H Micro: Microbiology 09/05/24 00:50 Blood Culture (Wb) - Anticubital Right Bacteria Detection (PCR) - Preliminary Staphylococcus epidermidis 09/05/24 00:50 Blood Culture (Wb) - Anticubital Right Blood Culture - Preliminary 09/05/24 01:02 Blood Culture (Wb) - Anticubital Right Blood Culture - Preliminary Physical Exam Const alert, oriented x3 and no apparent distress Constitutional Narrative: Jaundiced in appearance. General Appearance: cooperative HEENT normocephalic and head/scalp atraumatic Eyes PERRL and EOMs intact bilaterally Neck supple General: trachea midline Chest inspection of chest normal Resp normal respiratory effort Auscultation: Negative for rales, rhonchi or wheezes Cardio regular rate and regular rhythm GI normal to inspection, nondistended, normoactive bowel sounds Extremity no clubbing, cyanosis or edema Skin no rashes or lesions noted Neuro CN's II-XII intact bilaterally, moves all extremities and no focal motor deficits Psych cooperative and affect normal Charges/Coding Visit Charges Inpatient E&M: 16544 Subs Hosp L2
[2024-09-06 08:04] LABS: Anion Gap 10 (5-15); BUN 22 mg/dL (7-18); BUN/Creat Ratio 12.8 RATIO (10-20); Calcium,Total 8.5 mg/dL (8.5-10.1); Chloride 107 mmol/L (98-107); Creatinine, Serum 1.72 mg/dL (0.70-1.30); EST Glomerular Filtration Rate 44 mL/min (>60); Est Glom Filt Rate - Afr Amer 53 mL/min (>60); Estimated Creatinine Clearance 57.25 ml/min; Glucose 187 mg/dL (74-106); Potassium 4.3 mmol/L (3.5-5.1); Sodium Level 131 mmol/L (136-145)
[2024-09-06] MEDS: Lidocaine 5% Patch 3 PATCH TOPICAL (08:17)
[2024-09-06] MEDS: rifAXIMin 550 MG Tablet PO ×2 (08:17→21:31)
--- NOTE | 2024-09-06 09:00 | PN.HOSP_ITS ---
Reason for Visit Reason for Visit: Diagnoses Elevated white blood cell count, unspecified (09/05/24) Obesity, unspecified (09/05/24) Other disorders of bilirubin metabolism (09/05/24) Acidosis, unspecified (09/05/24) Obstructive sleep apnea (adult) (pediatric) (09/05/24) Other chronic pain (09/05/24) Metabolic encephalopathy (09/05/24) Other hypotension (09/05/24) Unspecified cirrhosis of liver (09/05/24) Nonalcoholic steatohepatitis (HARRIS) (09/05/24) Low back pain, unspecified (09/05/24) Calculus of kidney (09/05/24) Disorder of kidney and ureter, unspecified (09/05/24) Acute cystitis with hematuria (09/05/24) Difficulty in walking, not elsewhere classified (09/05/24) Weakness (09/05/24) Objective Data Objective Data Vital Signs: Vital Signs Temp Pulse Resp BP Pulse Ox O2 Del Method O2 Flow Rate 97.4 F L 85 18 134/82 H 94 Room Air 8 09/06/24 04:00 09/06/24 08:00 09/06/24 08:00 09/06/24 08:00 09/06/24 08:00 09/06/24 08:00 09/06/24 05:00 FiO2 21 09/06/24 03:55 Oxygen Flow Rate (L/min) 8 Oxygen Delivery Method Room Air Weight: 242 lb 11.663 oz Body Mass Index (BMI) 35.8 Intake & Output: Intake and Output for Last 24 Hours 09/04/24 09/05/24 09/06/24 23:59 23:59 23:59 Intake Total 3260 / 3500 1330 / 1330 Output Total 300 / 400 250 / 250 Balance 2960 / 3100 1080 / 1080 Lab / Micro Data 09/04/24 23:07 09/06/24 06:49 Labs: Laboratory Results - last 24 hr 09/05/24 12:36: POC Glucose 166 H 09/05/24 17:10: POC Glucose 169 H 09/06/24 00:02: POC Glucose 201 H 09/06/24 05:50: POC Glucose 173 H Sodium 131 L, Potassium 4.3, Chloride 107, Carbon Dioxide 14.0 L, Anion Gap 10, BUN 22 H, Creatinine 1.72 H, Estim Creat Clear Calc 57.25, Est GFR (MDRD) Af Amer 53 L, Est GFR (MDRD) Non-Af 44 L, BUN/Creatinine Ratio 12.8, Glucose 187 H, Calcium 8.5 Micro: Microbiology 09/05/24 00:50 Blood Culture (Wb) - Anticubital Right Bacteria Detection (PCR) - Final Staphylococcus epidermidis mecA Resistance Marker 09/05/24 00:50 Blood Culture (Wb) - Anticubital Right Blood Culture - Preliminary 09/05/24 01:02 Blood Culture (Wb) - Anticubital Right Blood Culture - Preliminary Physical Exam Narrative Seen and examined. Patient is morbidly obese. Patient is still complaining of left flank and back pain did not get better with the stent, 05/13. Had left ureteric stent yesterday. No fever Admitted with the left flank pain with radiation to lower back and anterior abdominal For about 1 week Still complaining of left abdominal pain. No abdominal Physical exam: General: Alert, Oriented x3, Cooperative. Obesity grade 1 BMI 34.2 kg/m? HEENT: Atraumatic, PERRLA, EOMI, Normocephalic Oral: Deep oropharyngeal structures not visualized Neck: Supple, No JVD, Negative Carotid Bruits Chest wall/Lungs: Air entry diminished in bilateral lung bases. No crepitation/rhonchi Cardiovascular: Regular rate, Regular Rhythm, Normal S1, Normal S2, systolic murmur Abdomen: Bowel Sounds Present, Soft, left flank tenderness Non-Distended : Tenderness present over left renal area and anterior abdominal wall. Dark- colored/mustard color urine no dysuria. No suprapubic tenderness. Extremities: No edema, Capillary Refill Less than 3 Seconds Skin: No rashes, No breakdown Musculoskeletal: No Tenderness to Palpation of Joints or Extremities Neurological: Cranial nerves II-XII grossly intact, DTR 2+/4. No acute focal neurological deficit. Psych/Mental Status: Flat affect Assessment & Plan Assessment/Plan (1) Staghorn calculus: (2) Acute cystitis with hematuria: (3) Lactic acidosis: (4) Metabolic encephalopathy: (5) Liver cirrhosis secondary to HARRIS (nonalcoholic steatohepatitis): (6) Chronic hypotension: PLAN: Plan 59-year-old gentleman was brought to ED by EMS for worsening back pain and abdominal pain for about a week. No nausea vomiting, fever or chill. 1. Back pain/abdominal pain: Patient did not had tachycardia, hypotension but mild tachypnea with no hypoxia. Patient has leukocytosis with immature granulocytes 1.5% suggestive of left shift but he had on 09/02 prior to discharge. Lactic acidosis, lactic acid 3.2. Started on IV Zosyn empirically. Urologist consulted. Patient had left ureteric stent inserted. On pain control. Patient does not meet criteria for sepsis. 2/3: Patient still has severe left flank/back pain. Urologist informed. Unclear about further plan regarding lithotripsy/nephrostomy for big staghorn calculus with pelvis caliectasis. Prelim blood culture shows MRSA, mecA resistance marker positive. Repeat blood culture ordered. IV vancomycin started. ID consult requested. Urine culture pending. 2. Acute Metabolic Encephalopathy with UDS positive for opiates: Acute metabolic encephalopathy resolved. 3. Recent admission here from August 29, 2024 to September 02, 2024 due to hepatic encephalopathy from decompensated nonalcoholic, MASLD cirrhosis. Acute kidney injury,: Patient creatinine was 5.63 on 08/29, gradually improved to 1.72 today. Since mainly postobstructive from renal calculus but calculus was unilateral. Suspicion of due to infection. [employer] consulted for further opinion 4. History of nonalcoholic cirrhotic liver disease with corresponding laboratory findings of Hyperbilirubinemia with total bilirubin of 3.1 mg/dL, direct bilirubin of 1.8 mg/dL, AST 156 units/L, ALT of 79 units/L, alkaline phosphatase of 269 units/L: 5. Obesity; with BMI of 35.1 this admission and ABBY; on CPAP: Weight loss recommended 6. OA; with chronic back pain complicated by mechanical fall on August 21, 2024 with a ED visit at that time showing acute on chronic lumbar spine discomfort with otherwise unremarkable ED evaluation but patient noted to have severe pain with ambulation this admission: PT OT 7. Chronic Hypotension; on midodrine 3 times daily - Resume midodrine as previous. 2/3: Patient blood pressure has been good since yesterday. Midodrine discontinued 8. Former tobacco abuse (quit 2023) - Noted. 9. DM-2; of unknown control on insulin glargine 10 units SQ twice daily - NPO for now. FSBS q. 6h plus lowest intensity SSI. Check hemoglobin A1c to objectively assess quality of diabetic control. 10. History of tobacco abuse - Noted. 11. Chronic Anemia/Thrombocytopenia; presumed to be due to underlying liver disease - Stable with hemoglobin of 9.4 g/dL, MCV of 86.6 fL and thrombocytopenia of 103K present on admission which approximates his baseline levels. 12. DVT prophylaxis - SCD's only with possible impending urologic procedure. Clinical Impression(s) from Imaging Studies Abdomen/Pelvis CT 09/04/24 23:30 IMPRESSION: 1. Cirrhosis with severe ascites. 2. 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 3. Marked splenomegaly. 4. Cholelithiasis. Pericholecystic edema can be seen with ascites. 5. Left staghorn calculus with pelvicaliectasis. 6. Suspicion of small left renal cyst. 7. Chronic prostatitis. Small prostate gland. 8. Anasarca. 9. Fluid-filled ventral hernia. 10. Fluid filled bilateral inguinal hernias. 11. Other nonacute findings detailed above. Reading Location: [facility] Charges/Coding Visit Charges Inpatient E&M: 99553 Subs Hosp L3
[2024-09-06 09:34] LABS: Absolute Lymphocyte Count 1.13 X10^3/uL (0.83-4.51); Absolute Neutrophil Count 15.6 X10^3/uL (2.0-7.7); Basophil# 0.06 X10^3/uL; Basophil% 0.3 % (0-1); Eosinophil# 0.41 X10^3/uL; Eosinophils% 2.2 % (0-5); Hematocrit 26.9 % (40-54); Lymphocyte # 1.13 X10^3/ul (0.83-4.51); Mean Corp Hgb Conc 33.5 g/dL (32-36); Mean Corpuscular Hgb 29.4 pg (27.0-32.0); Mean Corpuscular Volume 87.9 fL (80-94); Mean Platelet Vol. 11.3 fl (6.2-12.0); Monocyte# 1.39 X10^3/uL; Monocyte% 7.4 % (0-10); NRBC Flagged by Analyzer 0 % (0-5); Neutrophil # 15.59 X10^3/uL (2.7-7.7); Neutrophil % 82.9 % (47-70); Platelet Count 114 K/mm3 (150-450); RBC Distribution Width CV 17.2 % (11.6-14.6); RBC Distribution Width SD 50.1 fl (35.1-43.9); Red Blood Count 3.06 M/mm3 (4.6-6.2); White Blood Count 18.8 K/mm3 (4.4-11.0)
[2024-09-06] MEDS: Vancomycin HCl 1,750 MG in 0.9% Normal Saline (500mL Bag) 500 ML 250 MG IV (09:49)
[2024-09-06] MEDS: Pantoprazole Sodium 40 MG in 0.9% Normal Saline (100mL MB+) 100 ML 330 MG IV (09:51)
--- NOTE | 2024-09-06 10:25 | PCM.RX.CS ---
Consult Antibiotic Management Pharmacy has been consulted to manage selected antibiotic: Vancomycin Type of Intervention Type of Consult: New start Suspected Infection Suspected Infection: Sepsis Labs Labs: Sodium 131 mmol/L (136-145) L 09/06/24 06:49 Potassium 4.3 mmol/L (3.5-5.1) 09/06/24 06:49 Chloride 107 mmol/L (98-107) 09/06/24 06:49 Carbon Dioxide 14.0 mmol/L (21.0-32.0) L 09/06/24 06:49 Anion Gap 10 (5-15) 09/06/24 06:49 BUN 22 mg/dL (7-18) H 09/06/24 06:49 Creatinine 1.72 mg/dL (0.70-1.30) H 09/06/24 06:49 Est GFR (MDRD) Af Amer 53 mL/min (>60) L 09/06/24 06:49 Est GFR (MDRD) Non-Af 44 mL/min (>60) L 09/06/24 06:49 BUN/Creatinine Ratio 12.8 RATIO (10-20) 09/06/24 06:49 Glucose 187 mg/dL (74-106) H 09/06/24 06:49 Microbiology Microbiology: Microbiology 09/05/24 00:50 Blood Culture (Wb) - Anticubital Right Bacteria Detection (PCR) - Final Staphylococcus epidermidis mecA Resistance Marker 09/05/24 00:50 Blood Culture (Wb) - Anticubital Right Blood Culture - Preliminary 09/05/24 01:02 Blood Culture (Wb) - Anticubital Right Blood Culture - Preliminary Estimated Creatinine Clearance Estimated Creatinine Clearance: 57.25 Goal Trough Goal Trough: 15-20 mcg/mL Pharmacy Plan for Drug Dosing Pharmacy Plan for Drug Dosing: NEW START IV VANCOMYCIN Consulting Physician: Dr. Irene Indication: Sepsis Goal Trough: 15-20 SrCr: 1.72 CrCl: 57.25 Comments: Standard initial dose 1750mg x1 given @ 09:49 09/06/24 Vancomycin Dose: 1250mg Q12H to start @ 22:00 09/06/24 Pending Level: Vancomycin trough @ 21:30 09/07/24 Pharmacy Service will continue to monitor and adjust dosing as required. Follow-Up Labs Follow-Up Labs: Trough: Vancomycin (09/07/24 @ 21:30)
[2024-09-06] MEDS: oxyCODONE 5 MG Tablet PO ×2 (10:45→21:31)
[2024-09-06 11:50] LABS: Bedside Glucose 195 mg/dL (74-106)
--- NOTE | 2024-09-06 12:11 | CON.PCM.RE_ITS ---
Assessment & Plan Assessment/Plan (1) ISABEL (acute kidney injury): (2) Staghorn calculus: (3) 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): PLAN: Plan This is a 59-year-old male with past medical history significant to liver cirrhosis secondary to Boyer, ABBY who is known to our group from last week when patient hospitalized for acute on chronic hypotension, acute hepatic encephalopathy, ISABEL. ISABEL felt to be prerenal secondary to sepsis, hypotension with poor renal perfusion (patient was on IV pressors) and with IV fluids alone as well as a dose of albumin renal function improved. Patient has never required any renal replacement therapy. Renal function was improving by time of hospital discharge. Patient admitted on 09/05/2024 to ICU for sepsis protocol for suspected sepsis/acute cystitis, abdominal pain, back pain, left staghorn calculus underwent cystoscopy and left stent placement yesterday per Dr. Rascon. Previous admission serum creatinine peaked 5.63 on August 29 and today his creatinine is 1.72 mg/dL. Patient is nonoliguric. Volume status appears near euvolemic. No hyperkalemia. Overall renal function stable and has improved. Will continue to follow serum creatinine trajectory, baseline creatinine unknown. Blood pressures are acceptable. Last admission patient was on midodrine. Patient is on antibiotics for sepsis protocol, vancomycin and Zosyn. Further orders forthcoming as hospitalization evolves, thank you for allowing us to participate in the care of Mr. Wiggins. HPI Consult Data Date of Consult: 09/06/24 HPI Narrative HPI Narrative: FRANKLIN WIGGINS, is a 59 M who presented emergency room with complaints of abdominal pain and back pain. 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 Admitted for sepsis, acute metabolic encephalopathy and CT findings. Urology has been consulted and yesterday patient was taken to surgery for cystoscopy and left stent placement. Nephrology consulted for ISABEL, patient known to our group during last hospitalization last week for ISABEL felt to be secondary to prerenal. Patient did not require any renal placement therapy. During last hospitalization on 08/29 serum creatinine was 5.63 and by time of discharge on 09/02 renal function improved, serum creatinine was 2.54. Today his creatinine is 1.72. Patient denies any recent vomiting or diarrhea. Reports appetite is fair PFS Medical History Hyperbilirubinemia 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) HLD (hyperlipidemia) HTN (hypertension) Thrombocytopenia Chronic anemia Former tobacco use Diabetes mellitus, type 2 ABBY on CPAP Back pain Home Medications ?Medication ?Instructions ?Recorded ?Last Taken ?Type hydrocodone-acetaminophen 5-325mg 1 tab PO Q4H PRN PRN Pain Score 09/02/24 Unknown Rx 5mg-325mg 1-10 7 days #30 tabs insulin glargine-yfgn 100 unit/mL 10 unit (0.1 mL) sub cut BID #5 pens 09/02/24 Unknown Rx (3 mL) subcutaneous pen lactulose 10 gram/15 mL oral 20 g (30 mL) PO Q8 #1,419 mL 09/02/24 Unknown Rx solution lidocaine 5 % topical patch 3 patch topical DAILY #90 ea 09/02/24 Unknown Rx midodrine 5 mg tablet 10 mg (2 x 5 mg) PO TIDCM #9 0 tabs 09/02/24 Unknown Rx pantoprazole 40 mg tablet,delayed 40 mg PO BID #60 tab s 09/02/24 Unknown Rx release rifaximin 550 mg tablet (Xifaxan) 550 mg PO BID #60 ta bs 09/02/24 Unknown Rx Allergy/AdvReac Type Severity Reaction Status Date / Time No Known Allergies Allergy Verified 09/04/24 21:19 Family History Mother Heart disease Hypertension CAD (coronary artery disease) Myocardial infarction Father Hypertension Heart disease Heart failure Surgical History History of tonsillectomy and adenoidectomy Social History household members: significant other Smoking Status: Former smoker how long ago did patient quit smoking: Quit ~ 3-4 months prior (fall 2023), smoked 1.5 ppd since teen until quit. alcohol intake: never substance use type: does not use ROS ROS Narrative As in past medical history Physical Exam Narrative Alert and oriented, no apparent distress S1, S2, RRR Lungs sound clear anteriorly and posteriorly. On room air Abdomen soft, rounded, nontender No edema Pure wick [place], tea-colored urine in canister Lab / Micro Data 09/06/24 09:25 09/06/24 06:49 Labs: Laboratory Results - last 24 hr 09/05/24 12:36: POC Glucose 166 H 09/05/24 17:10: POC Glucose 169 H 09/06/24 00:02: POC Glucose 201 H 09/06/24 05:50: POC Glucose 173 H 09/06/24 06:49: WBC Cancelled, Corrected WBC Cancelled, RBC Cancelled, Hgb Cancelled, Hct Cancelled, MCV Cancelled, MCH Cancelled, MCHC Cancelled, RDW Std Deviation Cancelled, RDW Coeff of Francis Cancelled, Plt Count Cancelled, MPV Cancelled, Immature Gran % (Auto) Cancelled, Neut % (Auto) Cancelled, Lymph % (Auto) Cancelled, [place] % (Auto) Cancelled, Eos % (Auto) Cancelled, Baso % (Auto) Cancelled, Absolute Neuts (auto) Cancelled, Absolute Lymphs (auto) Cancelled, Total Counted Cancelled, Neutrophils % (Manual) Cancelled, Band Neutrophils % Cancelled, Lymphocytes % (Manual) Cancelled, Monocytes % (Manual) Cancelled, Eosinophils % (Manual) Cancelled, Basophils % (Manual) Cancelled, Metamyelocytes % Cancelled, Myelocytes % Cancelled, Promyelocytes % Cancelled, Blast Cells % Cancelled, Plasma Cell % (Manual) Cancelled, Other Cells % Cancelled, Nucleated RBC % Cancelled, Nucleated RBCs/100 WBC Cancelled, Differential Comment Cancelled, Diff Path Review Cancelled, Hypersegmented Neuts Cancelled, Atypical Lymphocytes Cancelled, Reactive Lymphocytes Cancelled, Smudge Cells Cancelled, Toxic Granulation Cancelled, Toxic Vacuolation Cancelled, Dohle Bodies Cancelled, Aleksey Rods Cancelled, Platelet Estimate Cancelled, Plt Morphology Comment Cancelled, RBC Morphology Cancelled 09/06/24 06:49: RBC Morphology Cancelled, Polychromasia Cancelled, Hypochromasia Cancelled, Basophilic Stippling Cancelled, Anisocytosis Cancelled, Microcytosis Cancelled, Macrocytosis Cancelled, Spherocytes Cancelled, Sickle Cells Cancelled, Target Cells Cancelled, Tear Drop Cells Cancelled, Ovalocytes Cancelled, Stomatocytes Cancelled, [place] Bodies Cancelled, [place] Cells Cancelled, Bite Cells Cancelled, Crenated Cell Cancelled, Acanthocytes (Spur) Cancelled, Rouleaux Cancelled, Schistocytes Cancelled, Sodium 131 L, Potassium 4.3, Chloride 107, Carbon Dioxide 14.0 L, Anion Gap 10, BUN 22 H, Creatinine 1.72 H, Estim Creat Clear Calc 57.25, Est GFR (MDRD) Af Amer 53 L, Est GFR (MDRD) Non-Af 44 L, BUN/Creatinine Ratio 12.8, Glucose 187 H, Calcium 8.5 09/06/24 09:25: WBC 18.8 H, RBC 3.06 L, Hgb 9.0 L, Hct 26.9 L, MCV 87.9, MCH 29.4, MCHC 33.5, RDW Std Deviation 50.1 H, RDW Coeff of Francis 17.2 H, Plt Count 114 L, MPV 11.3, Immature Gran % (Auto) 1.200 H, Neut % (Auto) 82.9 H, Lymph % (Auto) 6.0 L, [place] % (Auto) 7.4, Eos % (Auto) 2.2, Baso % (Auto) 0.3, Absolute Neuts (auto) 15.6 H, Absolute Lymphs (auto) 1.13, Nucleated RBC % 0 09/06/24 11:29: POC Glucose 195 H Micro: Microbiology 09/05/24 00:50 Blood Culture (Wb) - Anticubital Right Bacteria Detection (PCR) - Final Staphylococcus epidermidis mecA Resistance Marker 09/05/24 00:50 Blood Culture (Wb) - Anticubital Right Blood Culture - Preliminary 09/05/24 01:02 Blood Culture (Wb) - Anticubital Right Blood Culture - Preliminary
--- NOTE | 2024-09-06 13:16 | CON.PCM.ID_ITS ---
Assessment & Plan Assessment/Plan (1) Cirrhosis of liver: (2) Acute cystitis with hematuria: (3) Leukocytosis: QUALIFIERS: Leukocytosis type: unspecified Qualified Code(s): D 72.829 - Elevated white blood cell count, unspecified PLAN: 1 of 2 bcx with MRSE per pcr (not staph aureus). Paired bcx remains neg, possible contaminant. Ucx also with CoNS. Ureteral stent placed 09/05/24. Will narrow to vanc/ceftriaxone for now. Will follow, thank you HPI Consult Data Date of Consult: 09/06/24 HPI Narrative Reason for Consultation: (+) bcx HPI Narrative: FRANKLIN ARCHULETA, is a 59 M with h/o HARRIS cirrhosis, kidney stones, presented 09/04 to ED with acute worsening of lower back pain, abd pain, weakness, and fall. Recent admit 08/29-130. Keyser dizzy and weak, came back to ED. Now admitted to icu on vanc/zosyn. Feeling about the same, still with lower abd pain. Seen by neph and urology. Taken to OR 09/05/[address] Rascon for L sided stent placement. No fever or chills. Full ROS performed and neg except as noted above. [facility] Medical History Hyperbilirubinemia Liver cirrhosis secondary to HARRIS (nonalcoholic steatohepatitis) HLD (hyperlipidemia) HTN (hypertension) Thrombocytopenia Chronic anemia Former tobacco use Diabetes mellitus, type 2 ABBY on CPAP Back pain Home Medications ?Medication ?Instructions ?Recorded ?Last Taken ?Type hydrocodone-acetaminophen 5-325mg 1 tab PO Q4H PRN PRN Pain Score 09/02/24 Unknown Rx 5mg-325mg 1-10 7 days #30 tabs insulin glargine-yfgn 100 unit/mL 10 unit (0.1 mL) sub cut BID #5 pens 09/02/24 Unknown Rx (3 mL) subcutaneous pen lactulose 10 gram/15 mL oral 20 g (30 mL) PO Q8 #1,419 mL 09/02/24 Unknown Rx solution lidocaine 5 % topical patch 3 patch topical DAILY #90 ea 09/02/24 Unknown Rx midodrine 5 mg tablet 10 mg (2 x 5 mg) PO TIDCM #9 0 tabs 09/02/24 Unknown Rx pantoprazole 40 mg tablet,delayed 40 mg PO BID #60 tab s 09/02/24 Unknown Rx release rifaximin 550 mg tablet (Xifaxan) 550 mg PO BID #60 ta bs 09/02/24 Unknown Rx Allergy/AdvReac Type Severity Reaction Status Date / Time No Known Allergies Allergy Verified 09/04/24 21:19 Family History Mother Heart disease Hypertension CAD (coronary artery disease) Myocardial infarction Father Hypertension Heart disease Heart failure Surgical History History of tonsillectomy and adenoidectomy Social History household members: significant other Smoking Status: Former smoker how long ago did patient quit smoking: Quit ~ 3-4 months prior (fall 2023), smoked 1.5 ppd since teen until quit. alcohol intake: never substance use type: does not use Physical Exam Const alert, oriented x3 and no apparent distress General Appearance: cooperative HEENT normocephalic and head/scalp atraumatic Eyes PERRL and EOMs intact bilaterally Neck supple and No nodes Resp normal air movement and clear to auscultation bilaterally Cardio regular rate and regular rhythm GI soft to palpation and non-tender GI Narrative: mild distension Extremity General Extremity: Negative for edema Skin no rashes or lesions noted Skin Narrative: jaundiced Neuro CN's II-XII intact bilaterally Lab / Micro Data Attestation: I reviewed the patient's lab results. 09/06/24 09:25 09/06/24 06:49 Labs: Laboratory Results - last 24 hr 09/05/24 17:10: POC Glucose 169 H 09/06/24 00:02: POC Glucose 201 H 09/06/24 05:50: POC Glucose 173 H 09/06/24 06:49: WBC Cancelled, Corrected WBC Cancelled, RBC Cancelled, Hgb Cancelled, Hct Cancelled, MCV Cancelled, MCH Cancelled, MCHC Cancelled, RDW Std Deviation Cancelled, RDW Coeff of Francis Cancelled, Plt Count Cancelled, MPV Cancelled, Immature Gran % (Auto) Cancelled, Neut % (Auto) Cancelled, Lymph % (Auto) Cancelled, [place] % (Auto) Cancelled, Eos % (Auto) Cancelled, Baso % (Auto) Cancelled, Absolute Neuts (auto) Cancelled, Absolute Lymphs (auto) Cancelled, Total Counted Cancelled, Neutrophils % (Manual) Cancelled, Band Neutrophils % Cancelled, Lymphocytes % (Manual) Cancelled, Monocytes % (Manual) Cancelled, Eosinophils % (Manual) Cancelled, Basophils % (Manual) Cancelled, Metamyelocytes % Cancelled, Myelocytes % Cancelled, Promyelocytes % Cancelled, Blast Cells % Cancelled, Plasma Cell % (Manual) Cancelled, Other Cells % Cancelled, Nucleated RBC % Cancelled, Nucleated RBCs/100 WBC Cancelled, Differential Comment Cancelled, Diff Path Review Cancelled, Hypersegmented Neuts Cancelled, Atypical Lymphocytes Cancelled, Reactive Lymphocytes Cancelled, Smudge Cells Cancelled, Toxic Granulation Cancelled, Toxic Vacuolation Cancelled, Dohle Bodies Cancelled, Aleksey Rods Cancelled, Platelet Estimate Cancelled, Plt Morphology Comment Cancelled, RBC Morphology Cancelled 09/06/24 06:49: RBC Morphology Cancelled, Polychromasia Cancelled, Hypochromasia Cancelled, Basophilic Stippling Cancelled, Anisocytosis Cancelled, Microcytosis Cancelled, Macrocytosis Cancelled, Spherocytes Cancelled, Sickle Cells Cancelled, Target Cells Cancelled, Tear Drop Cells Cancelled, Ovalocytes Cancelled, Stomatocytes Cancelled, [place] Bodies Cancelled, [place] Cells Cancelled, Bite Cells Cancelled, Crenated Cell Cancelled, Acanthocytes (Spur) Cancelled, Rouleaux Cancelled, Schistocytes Cancelled, Sodium 131 L, Potassium 4.3, Chloride 107, Carbon Dioxide 14.0 L, Anion Gap 10, BUN 22 H, Creatinine 1.72 H, Estim Creat Clear Calc 57.25, Est GFR (MDRD) Af Amer 53 L, Est GFR (MDRD) Non-Af 44 L, BUN/Creatinine Ratio 12.8, Glucose 187 H, Calcium 8.5 09/06/24 09:25: WBC 18.8 H, RBC 3.06 L, Hgb 9.0 L, Hct 26.9 L, MCV 87.9, MCH 29.4, MCHC 33.5, RDW Std Deviation 50.1 H, RDW Coeff of Francis 17.2 H, Plt Count 114 L, MPV 11.3, Immature Gran % (Auto) 1.200 H, Neut % (Auto) 82.9 H, Lymph % (Auto) 6.0 L, [place] % (Auto) 7.4, Eos % (Auto) 2.2, Baso % (Auto) 0.3, Absolute Neuts (auto) 15.6 H, Absolute Lymphs (auto) 1.13, Nucleated RBC % 0 09/06/24 11:29: POC Glucose 195 H Micro: Microbiology 09/04/24 22:48 Urine Catheter - Catheter Urine Culture - Preliminary Coag Negative Staph 09/05/24 00:50 Blood Culture (Wb) - Anticubital Right Bacteria Detection (PCR) - Final Staphylococcus epidermidis mecA Resistance Marker 09/05/24 00:50 Blood Culture (Wb) - Anticubital Right Blood Culture - Preliminary 09/05/24 01:02 Blood Culture (Wb) - Anticubital Right Blood Culture - Preliminary
[2024-09-06] MEDS: Ceftriaxone 2 GM in 0.9% Normal Saline (50mL MB+) 50 ML IV (13:55)
[2024-09-06 15:20] LABS: Vitamin B12 > 2000 pg/mL (211-911)
[2024-09-06 15:26] LABS: Hemoglobin A1c 7.3 % (3.8-5.6)
--- NOTE | 2024-09-06 15:58 | CASEMGMT ---
Discharge Planning A list of SNF providers including quality and resource use data and consistent with the patient's preferred geographic region, medical needs, and insurance network was created in [facility] Guide.? This list was provided to the SW. India Platt Discharge Planning Asst.
--- NOTE | 2024-09-06 16:11 | CASEMGMT ---
Readmission Note: Index: 08/29/24-09/02/24. Dx: hepatic encephalopathy, ISABEL, hypotension Readmission: 09/05/24. Dx: sepsis with staghorn calculi From index admission, the patient was discharged home with [facility] and was advised to get established with a PCP and a pain management doctor. The pt was refusing SNF needs at the time. The patient recently moved from [place] and does not have a local PCP. At the time, the patient did not have insurance due to the recent move. Per chart review, the patient was approved and now has [place] Medicaid. The patient initially stated that he did not have any form of transportation. See previous manager floor discharging note. The patient lives on the second level of his home and was able to perform steps with physical therapy before discharge. The patient was also set up with the [employer] raji program as he could not afford any of his new medications at the time. The pt's discharging RN (Octavio) took the pt down to [facility] at the time of DC where the pt received his new medications. The patient re-presents to [facility] with back pain, abdominal pain, generalized weakness, constipation, and decreased appetite. The patient had a cystoscopy and stent placement with Dr. Rascon on 09/05. The patient was admitted to ICU for further management. The patient did work with physical therapy today and was limited to 3 feet due to pain. The current 6-Click score is 17. ID is consulted. This RN CM also talked to Darien from [facility] about this case and updated Darien that the patient is back in the hospital. RN CM to the patient's room at this time. Patient is A&Ox3 and is resting comfortably in bed as he just received pain medication. Patient states that he was not taking his medications as ordered and states that he was confused about which ones to take and when. Patient also states that he did not get himself established with a new PCP or pain management doctor. Patient states that his significant other has been working on this. Patient states that he was not checking his blood sugar levels or taking his insulin as ordered. Patient states that he was too painful to do anything. Moving forward, the patient states that he wants to go to a custodial facility at the time of discharge for a short-term stay. The patient is aware that home healthcare is still not an option due to the patient not being established with a PCP. Pt is aware that [facility] is still an option. However, the patient reports that he would like to review a list of custodial facilities as he has been to a SNF in [place] in the past for a short term stay. Social work notified and to provide list. Patient thanks this manager floor and denies any further questions or concerns at this time. PLAN: Anticipate custodial facility at the time of discharge. Tayla ROCA RN CM
[2024-09-06] MEDS: Vancomycin HCl 1,250 MG in 0.9% Normal Saline (250mL Bag) 250 ML 167 MG IV (21:32)
[2024-09-06 22:07] LABS: Bedside Glucose 220 mg/dL (74-106)
[2024-09-07] MEDS: Insulin Lispro 100 UNIT/ML INSULN.PEN SC ×4 (00:05→17:26)
[2024-09-07] MEDS: HYDROmorphone 0.5 MG/0.5 ML SYRINGE 1 MG IV ×3 (00:09→08:57)
[2024-09-07] MEDS: 0.9% Saline Lock 10 ML Syringe IV ×3 (00:09→08:57)
[2024-09-07 00:23] LABS: Bedside Glucose 268 mg/dL (74-106)
[2024-09-07 02:00] VITALS: PULSE 92; RESP 21; O2SAT 100
[2024-09-07 04:00] VITALS: BP 134/68; PULSE 93; RESP 20; TEMP 36.6; O2SAT 99
[2024-09-07 04:09] LABS: Absolute Lymphocyte Count 0.95 X10^3/uL (0.83-4.51); Absolute Neutrophil Count 13.3 X10^3/uL (2.0-7.7); Basophil# 0.07 X10^3/uL; Basophil% 0.4 % (0-1); Eosinophil# 0.49 X10^3/uL; Hematocrit 27.1 % (40-54); Lymphocyte # 0.95 X10^3/ul (0.83-4.51); Lymphocyte % 5.8 % (19-41); Mean Corp Hgb Conc 33.2 g/dL (32-36); Mean Corpuscular Volume 87.4 fL (80-94); Mean Platelet Vol. 11.8 fl (6.2-12.0); Monocyte# 1.41 X10^3/uL; Monocyte% 8.6 % (0-10); NRBC Flagged by Analyzer 0 % (0-5); Neutrophil # 13.27 X10^3/uL (2.7-7.7); Neutrophil % 80.8 % (47-70); Platelet Count 121 K/mm3 (150-450); RBC Distribution Width CV 17.7 % (11.6-14.6); RBC Distribution Width SD 50.3 fl (35.1-43.9); White Blood Count 16.4 K/mm3 (4.4-11.0)
[2024-09-07 04:19] VITALS: BMI 36.4
[2024-09-07 04:21] LABS: Anion Gap 10 (5-15); BUN 20 mg/dL (7-18); BUN/Creat Ratio 13.6 RATIO (10-20); Calcium,Total 8.2 mg/dL (8.5-10.1); Chloride 108 mmol/L (98-107); Creatinine, Serum 1.47 mg/dL (0.70-1.30); EST Glomerular Filtration Rate 52 mL/min (>60); Est Glom Filt Rate - Afr Amer 63 mL/min (>60); Estimated Creatinine Clearance 67.54 ml/min; Glucose 231 mg/dL (74-106); Potassium 3.8 mmol/L (3.5-5.1); Sodium Level 134 mmol/L (136-145)
[2024-09-07 05:30] VITALS: RESP 21; O2SAT 100
[2024-09-07] MEDS: Lactulose 20 GM/30 ML UDC PO ×3 (06:37→21:26)
[2024-09-07 09:00] VITALS: BP 132/79; PULSE 93; RESP 12; TEMP 36.6; O2SAT 98
[2024-09-07] MEDS: Pantoprazole Sodium 40 MG in 0.9% Normal Saline (100mL MB+) 100 ML 330 MG IV (09:23)
--- NOTE | 2024-09-07 09:36 | PCM.PN.HOSP ---
Reason for Visit Reason for Visit: Diagnoses Elevated white blood cell count, unspecified (09/05/24) Obesity, unspecified (09/05/24) Other disorders of bilirubin metabolism (09/05/24) Acidosis, unspecified (09/05/24) Obstructive sleep apnea (adult) (pediatric) (09/05/24) Other chronic pain (09/05/24) Metabolic encephalopathy (09/05/24) Other hypotension (09/05/24) Hypotension, unspecified (09/05/24) Unspecified cirrhosis of liver (09/05/24) Nonalcoholic steatohepatitis (HARRIS) (09/05/24) Hepatic encephalopathy (09/05/24) Low back pain, unspecified (09/05/24) Acute kidney failure, unspecified (09/05/24) Calculus of kidney (09/05/24) Disorder of kidney and ureter, unspecified (09/05/24) Acute cystitis with hematuria (09/05/24) Difficulty in walking, not elsewhere classified (09/05/24) Weakness (09/05/24) Objective Data Objective Data Vital Signs: Vital Signs Temp Pulse Resp BP Pulse Ox O2 Del Method O2 Flow Rate 97.8 F 93 21 H 134/68 H 100 Room Air 8 09/07/24 04:00 09/07/24 04:00 09/07/24 05:30 09/07/24 04:00 09/07/24 05:30 09/07/24 05:30 09/06/24 05:00 FiO2 21 09/07/24 01:24 Oxygen Flow Rate (L/min) 8 Oxygen Delivery Method Room Air Weight: 246 lb 11.156 oz Body Mass Index (BMI) 36.4 Intake & Output: Intake and Output for Last 24 Hours 09/05/24 09/06/24 09/07/24 23:59 23:59 23:59 Intake Total 3260 / 3500 2350 / 2850 980 / 980 Output Total 300 / 400 350 / 800 550 / 550 Balance 2960 / 3100 1999 / 2049 430 / 430 Lab / Micro Data 09/07/24 03:55 09/07/24 03:55 Labs: Laboratory Results - last 24 hr 09/04/24 23:07: Hemoglobin A1c 7.3 H 09/05/24 07:45: Vitamin B12 > 2000 H 09/06/24 11:29: POC Glucose 195 H 09/06/24 17:31: POC Glucose 220 H 09/07/24 00:02: POC Glucose 268 H 09/07/24 03:55: WBC 16.4 H, RBC 3.10 L, Hgb 9.0 L, Hct 27.1 L, MCV 87.4, MCH 29.0, MCHC 33.2, RDW Std Deviation 50.3 H, RDW Coeff of Francis 17.7 H, Plt Count 121 L, MPV 11.8, Immature Gran % (Auto) 1.400 H, Neut % (Auto) 80.8 H, Lymph % (Auto) 5.8 L, [place] % (Auto) 8.6, Eos % (Auto) 3.0, Baso % (Auto) 0.4, Absolute Neuts (auto) 13.3 H, Absolute Lymphs (auto) 0.95, Nucleated RBC % 0, Sodium 134 L, Potassium 3.8, Chloride 108 H, Carbon Dioxide 17.0 L, Anion Gap 10, BUN 20 H, Creatinine 1.47 H, Estim Creat Clear Calc 67.54, Est GFR (MDRD) Af Amer 63, Est GFR (MDRD) Non-Af 52 L, BUN/Creatinine Ratio 13.6, Glucose 231 H, Calcium 8.2 L Micro: Microbiology 09/04/24 22:48 Urine Catheter - Catheter Urine Culture - Final Staphylococcus epidermidis 09/05/24 01:02 Blood Culture (Wb) - Anticubital Right Blood Culture - Preliminary Staphylococcus epidermidis 09/05/24 00:50 Blood Culture (Wb) - Anticubital Right Bacteria Detection (PCR) - Final Staphylococcus epidermidis mecA Resistance Marker 09/05/24 00:50 Blood Culture (Wb) - Anticubital Right Blood Culture - Final Physical Exam Narrative Seen and examined. Patient is morbidly obese. Patient is still complaining of left flank and back pain did not get better with the stent, / but seems better on the tenderness. Had left ureteric stent yesterday. No fever Physical exam: General: Alert, Oriented x3, Cooperative. Obesity grade 1 BMI 34.2 kg/m? HEENT: Atraumatic, PERRLA, EOMI, Normocephalic Oral: Deep oropharyngeal structures not visualized Neck: Supple, No JVD, Negative Carotid Bruits Chest wall/Lungs: Air entry diminished in bilateral lung bases. No crepitation/rhonchi Cardiovascular: Regular rate, Regular Rhythm, Normal S1, Normal S2, systolic murmur Abdomen: Bowel Sounds Present, Soft, left flank tenderness Non-Distended : Mild tenderness present over left renal area and anterior abdominal wall. Dark-colored/mustard color urine no dysuria. No suprapubic tenderness. Extremities: No edema, Capillary Refill Less than 3 Seconds Skin: No rashes, No breakdown Musculoskeletal: No Tenderness to Palpation of Joints or Extremities Neurological: Cranial nerves II-XII grossly intact, DTR 2+/4. No acute focal neurological deficit. Psych/Mental Status: Flat affect Assessment & Plan Assessment/Plan (1) Staghorn calculus: (2) Acute cystitis with hematuria: (3) Lactic acidosis: (4) Metabolic encephalopathy: (5) Liver cirrhosis secondary to HARRIS (nonalcoholic steatohepatitis): (6) Chronic hypotension: PLAN: Plan 59-year-old gentleman was brought to ED by EMS for worsening back pain and abdominal pain for about a week. No nausea vomiting, fever or chill. 1. Back pain/abdominal pain: Patient did not had tachycardia, hypotension but mild tachypnea with no hypoxia. Patient has leukocytosis with immature granulocytes 1.5% suggestive of left shift but he had on 09/02 prior to discharge. Lactic acidosis, lactic acid 3.2. Started on IV Zosyn empirically. Urologist consulted. Patient had left ureteric stent inserted. On pain control. Patient does not meet criteria for sepsis. 2/3: Patient still has severe left flank/back pain. Urologist informed. Unclear about further plan regarding lithotripsy/nephrostomy for big staghorn calculus with pelvis caliectasis. Prelim blood culture shows MRSA, mecA resistance marker positive. Repeat blood culture ordered. IV vancomycin started. ID consult requested. Urine culture pending. 2/4: Leukocytosis improving. Mild thrombocytopenia. Continue antibiotic. One of the 2 bottles growing Staph epidermidis, MRSE. Discussed with ID. Urine culture also showing MRSE. antibiotic was changed to vancomycin and ceftriaxone yesterday 2. Acute Metabolic Encephalopathy with UDS positive for opiates: Acute metabolic encephalopathy resolved. /4: Mental status is good 3. Recent admission here from August 29, 2024 to September 02, 2024 due to hepatic encephalopathy from decompensated nonalcoholic, MASLD cirrhosis. Acute kidney injury,: Patient creatinine was 5.63 on 08/29, gradually improved to 1.72 today. Since mainly postobstructive from renal calculus but calculus was unilateral. Suspicion of due to infection. Art Sales Consultant consulted for further opinion 4. History of nonalcoholic cirrhotic liver disease with corresponding laboratory findings of Hyperbilirubinemia with total bilirubin of 3.1 mg/dL, direct bilirubin of 1.8 mg/dL, AST 156 units/L, ALT of 79 units/L, alkaline phosphatase of 269 units/L: 5. Obesity; with BMI of 35.1 this admission and ABBY; on CPAP: Weight loss recommended 6. OA; with chronic back pain complicated by mechanical fall on August 21, 2024 with a ED visit at that time showing acute on chronic lumbar spine discomfort with otherwise unremarkable ED evaluation but patient noted to have severe pain with ambulation this admission: PT OT 7. Chronic Hypotension; on midodrine 3 times daily - Resume midodrine as previous. 2/3: Patient blood pressure has been good since yesterday. Midodrine discontinued 8. Former tobacco abuse (quit 2023) - Noted. 9. DM-2; of unknown control on insulin glargine 10 units SQ twice daily - NPO for now. FSBS q. 6h plus lowest intensity SSI. Check hemoglobin A1c to objectively assess quality of diabetic control. 10. History of tobacco abuse - Noted. 11. Chronic Anemia/Thrombocytopenia; presumed to be due to underlying liver disease - Stable with hemoglobin of 9.4 g/dL, MCV of 86.6 fL and thrombocytopenia of 103K present on admission which approximates his baseline levels. 12. DVT prophylaxis - SCD's only with possible impending urologic procedure. Living will/advanced directive/end of life care: Patient he states he does have living will or advanced directive although is not clear. He states that his fianc?e may be power of insurance attorney for health though he is not sure. After discussion of benefits/risks procedures involved with full code, DNR CC arrest and DNR CC, the patient opted for full code. Patient does want artificial life support including intubation, tube feed, ventilator and/chest compression, central venous catheter, vasopressor and DC shock if needed Total time spent in [id number] encounter in discussion of advanced directive 17 minutes. Clinical Impression(s) from Imaging Studies Abdomen/Pelvis CT 09/04/24 23:30 IMPRESSION: 1. Cirrhosis with severe ascites. 2. 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 3. Marked splenomegaly. 4. Cholelithiasis. Pericholecystic edema can be seen with ascites. 5. Left staghorn calculus with pelvicaliectasis. 6. Suspicion of small left renal cyst. 7. Chronic prostatitis. Small prostate gland. 8. Anasarca. 9. Fluid-filled ventral hernia. 10. Fluid filled bilateral inguinal hernias. 11. Other nonacute findings detailed above. Reading Location: [facility] Charges/Coding Visit Charges Inpatient E&M: 22280 Subs Hosp L2 Procedures Hospitalists Procedures: 99135 Advncd Care Plan 30 Min
[2024-09-07] MEDS: Lidocaine 5% Patch 3 PATCH TOPICAL (09:37)
[2024-09-07 09:56] LABS: Bedside Glucose 197 mg/dL (74-106)
[2024-09-07] MEDS: rifAXIMin 550 MG Tablet PO ×2 (10:00→21:26)
[2024-09-07] MEDS: Ceftriaxone 2 GM in 0.9% Normal Saline (50mL MB+) 50 ML IV (10:00)
--- NOTE | 2024-09-07 10:28 | CASEMGMT ---
Social Work SW met w/pt in room in regard to discharge plan. Pt is agreeable to going to a residential facility, though is not certain which one. SW did provide a list to pt, and reviewed some of the facilities in [place]. Pt wanted to call his family. SW assisted pt in calling family, however the numbers listed for both his significant other and his son are not working. SW tried from both the room phone and SW phone. SW let pt's RN know so that if family calls in, we can get numbers for them. Pt is open to SW sending referrals to [facility] and [facility], as they both have 4 star ratings. SW spoke w/registration to clarify insurance, as the insurance card on file is straight Medicaid, but pt actually has [place]. SW will review list of [place] providers and make sure that [facility] and [facility] are still in network. SW will continue to follow. PIERRE Tobias
--- NOTE | 2024-09-07 10:42 | CASEMGMT ---
Discharge Planning A list of?snf providers including quality and resource use data and consistent with the patient's preferred geographic region, medical needs, and insurance network ([employer]) was created in [employer] Guide.? This list was provided to the SW. India Platt Discharge Planning Asst.
--- NOTE | 2024-09-07 10:48 | PCM.PN.ID ---
Physical Exam Narrative Feeling ok, still abd pain, no fever Const alert and no apparent distress General Appearance: cooperative Resp normal air movement and clear to auscultation bilaterally Cardio regular rate and regular rhythm GI soft to palpation GI Narrative: mild soreness and distension Skin no rashes or lesions noted ID ID: Route of nutrition/ use of supplements: [] Nutritional Intake: [] IV Site: [] Del Castillo Catheter: [] Assessment & Plan Assessment/Plan (1) Cirrhosis of liver: (2) Acute cystitis with hematuria: (3) Leukocytosis: QUALIFIERS: Leukocytosis type: unspecified Qualified Code(s): D72.829 - Elevated white blood cell count, unspecified PLAN: 1 of 2 bcx with MRSE. Paired bcx remains neg, possible contaminant. Ucx also with CoNS. Ureteral stent placed 09/05/24. Cont vanc/ceftriaxone for now. Will follow
--- NOTE | 2024-09-07 10:56 | CASEMGMT ---
Addendum entered by Eloise Hightower 09/07/24 11:49: Social Work SW did get a number for pt's son, Leopoldo: [phone]. SW called son, explained we are looking at shelter placement short term for his father. He does not have a preference but would prefer something closer to home, state it is up to us. He states that Mary may have more of an idea on this. SW called Mary, message left. SW looked up all the facilities on the SNF list in network w/[facility] to see how far they are from pt's home. The facilities in [place] are about 15 miles away, the facilities in [place] are further. SW spoke w/pt again. Sw explained spoke w/his son who prefers something close to home but did not have input beyond this. SW let pt know that SW was not able to reach Mary. SW reviewed the new SNF list w/pt, he would prefer the facilities with better ratings in [place] to the closer ones with lower star ratings. SW explained we will make referrals to the [facility], and go from there. SW explained the insurance authorization process to pt, pt states understanding. SW asked d/c logistics and planning manager to send referrals to the [place] facilities, which are [facility], [facility] and [facility]. JEANNINE will continue to follow. PIERRE Tobias Original Note: Social Work SW called the home number for pt, his landlord Jerald answered the phone. He was aware Cal was here in the hospital. He was able to give this SW an alternate number for Mary Ailyn, pt's fiance: [phone]. Jerald states he is also Cal's son Leopoldo's step son. He did not seem to have a number for him but states Leopoldo and his fiance just had a baby here so may be able to track down a phone number that way. SW will attempt to track down son's number. PIERRE Tobias
[2024-09-07] MEDS: Vancomycin HCl 1,250 MG in 0.9% Normal Saline (250mL Bag) 250 ML 167 MG IV (11:02)
--- NOTE | 2024-09-07 11:46 | CASEMGMT ---
Addendum entered by India Platt 09/08/24 08:28: Correction to previous note, [facility] has accepted. [facility] entered in error. India Platt DC Planning Asst. Addendum entered by India Platt 09/07/24 16:06: [facility] accepted. India Platt DC Planning Asst. Addendum entered by India Platt 09/07/24 12:18: [facility] declined d/t no bed availability. [facility] declined d/t not taking skilled AV pts. India Platt DC Planning Asst. Original Note: Referral sent to [facility], and [facility]. India Platt DC Planning Asst.
[2024-09-07 12:11] LABS: Bedside Glucose 201 mg/dL (74-106)
--- NOTE | 2024-09-07 12:47 | PN.RENAL_ITS ---
Subjective Subjective no new events Objective Data Objective Data Vital Signs: Vital Signs Temp Pulse Resp BP Pulse Ox O2 Del Method O2 Flow Rate 97.9 F 93 12 132/79 H 98 Room Air 8 09/07/24 09:00 09/07/24 09:00 09/07/24 09:00 09/07/24 09:00 09/07/24 09:00 09/07/24 09:00 09/06/24 05:00 FiO2 21 09/07/24 01:24 Oxygen Flow Rate (L/min) 8 Oxygen Delivery Method Room Air Weight: 111.9 kg Body Mass Index (BMI) 36.4 Intake & Output: Intake and Output for Last 24 Hours 09/05/24 09/06/24 09/07/24 23:59 23:59 23:59 Intake Total 3260 / 3500 2350 / 2850 1140 / 1140 Output Total 300 / 400 350 / 800 550 / 550 Balance 2960 / 3100 2000 / 2050 590 / 590 Lab / Micro Data 09/07/24 03:55 09/07/24 03:55 Labs: Laboratory Results - last 24 hr 09/04/24 23:07: Hemoglobin A1c 7.3 H 09/05/24 07:45: Vitamin B12 > 2000 H 09/06/24 17:31: POC Glucose 220 H 09/07/24 00:02: POC Glucose 268 H 09/07/24 03:55: WBC 16.4 H, RBC 3.10 L, Hgb 9.0 L, Hct 27.1 L, MCV 87.4, MCH 29.0, MCHC 33.2, RDW Std Deviation 50.3 H, RDW Coeff of Francis 17.7 H, Plt Count 121 L, MPV 11.8, Immature Gran % (Auto) 1.400 H, Neut % (Auto) 80.8 H, Lymph % (Auto) 5.8 L, [place] % (Auto) 8.6, Eos % (Auto) 3.0, Baso % (Auto) 0.4, Absolute Neuts (auto) 13.3 H, Absolute Lymphs (auto) 0.95, Nucleated RBC % 0, Sodium 134 L, Potassium 3.8, Chloride 108 H, Carbon Dioxide 17.0 L, Anion Gap 10, BUN 20 H, Creatinine 1.47 H, Estim Creat Clear Calc 67.54, Est GFR (MDRD) Af Amer 63, Est GFR (MDRD) Non-Af 52 L, BUN/Creatinine Ratio 13.6, Glucose 231 H, Calcium 8.2 L 09/07/24 06:37: POC Glucose 197 H 09/07/24 11:35: POC Glucose 201 H Micro: Microbiology 09/05/24 01:02 Blood Culture (Wb) - Anticubital Right Blood Culture - Final Staphylococcus epidermidis 09/04/24 22:48 Urine Catheter - Catheter Urine Culture - Final Staphylococcus epidermidis 09/05/24 00:50 Blood Culture (Wb) - Anticubital Right Bacteria Detection (PCR) - Final Staphylococcus epidermidis mecA Resistance Marker 09/05/24 00:50 Blood Culture (Wb) - Anticubital Right Blood Culture - Final Physical Exam Narrative Alert and oriented, no apparent distress S1, S2, RRR Lungs sound clear anteriorly and posteriorly. On room air Abdomen soft, rounded, nontender No edema Pure wick Del Castillo, tea-colored urine in canister Assessment & Plan Assessment/Plan (1) ISABEL (acute kidney injury): (2) Staghorn calculus: (3) Liver cirrhosis secondary to HARRIS (nonalcoholic steatohepatitis): PLAN: Plan This is a 59-year-old male with past medical history significant to liver cirrhosis secondary to Harris, ABBY who is known to our group from last week when patient hospitalized for acute on chronic hypotension, acute hepatic encephalopathy, ISABEL. ISABEL felt to be prerenal secondary to sepsis, hypotension with poor renal perfusion (patient was on IV pressors) and with IV fluids alone as well as a dose of albumin renal function improved. Patient has never required any renal replacement therapy. Renal function was improving by time of hospital discharge. Patient admitted on 09/05/2024 to ICU for sepsis protocol for suspected sepsis/acute cystitis, abdominal pain, back pain, left staghorn calculus underwent cystoscopy and left stent placement yesterday per Dr. Rascon. Previous admission serum creatinine peaked 5.63 on August 29 and today his creatinine is 1.72 mg/dL. Patient is nonoliguric. Volume status appears near euvolemic. No hyperkalemia. Overall renal function stable and has improved.
--- NOTE | 2024-09-07 14:43 | CASEMGMT ---
Social Work As per pt's RN, pt wanted his exwife added as a machine repair person. SW added Sylvia in the computer. SW asked pt if he would like SW to call her about intermediate options. Pt states to call his ruby Hernandez. SW let pt know SW did call her and left a message, and she did not return call. Pt states she is supposed to be coming in to visit. SW will speak w/Mary should she come in. SW will continue to follow. PIERRE Tobias
[2024-09-07 16:00] VITALS: BP 123/82; PULSE 93; RESP 16; TEMP 36.6; O2SAT 97
[2024-09-07 17:47] LABS: Bedside Glucose 215 mg/dL (74-106)
[2024-09-07 21:16] VITALS: BP 104/74; PULSE 89; RESP 16; TEMP 36.4; O2SAT 100
[2024-09-07 22:14] LABS: Vancomycin, Trough Level 24.9 ug/mL (5.0-15.0)
--- NOTE | 2024-09-07 22:19 | PCM.RX.CS ---
Consult Antibiotic Management Pharmacy has been consulted to manage selected antibiotic: Vancomycin Type of Intervention Type of Consult: Follow-up Suspected Infection Suspected Infection: Sepsis Labs Labs: Sodium 134 mmol/L (136-145) L 09/07/24 03:55 Potassium 3.8 mmol/L (3.5-5.1) 09/07/24 03:55 Chloride 108 mmol/L (98-107) H 09/07/24 03:55 Carbon Dioxide 17.0 mmol/L (21.0-32.0) L 09/07/24 03:55 Anion Gap 10 (5-15) 09/07/24 03:55 BUN 20 mg/dL (7-18) H 09/07/24 03:55 Creatinine 1.47 mg/dL (0.70-1.30) H 09/07/24 03:55 Est GFR (MDRD) Af Amer 63 mL/min (>60) 09/07/24 03:55 Est GFR (MDRD) Non-Af 52 mL/min (>60) L 09/07/24 03:55 BUN/Creatinine Ratio 13.6 RATIO (10-20) 09/07/24 03:55 Glucose 231 mg/dL (74-106) H 09/07/24 03:55 Vancomycin Trough 24.9 ug/mL (5.0-15.0) H 09/07/24 21:39 Microbiology Microbiology: Microbiology 09/05/24 01:02 Blood Culture (Wb) - Anticubital Right Blood Culture - Final Staphylococcus epidermidis 09/04/24 22:48 Urine Catheter - Catheter Urine Culture - Final Staphylococcus epidermidis 09/05/24 00:50 Blood Culture (Wb) - Anticubital Right Bacteria Detection (PCR) - Final Staphylococcus epidermidis mecA Resistance Marker 09/05/24 00:50 Blood Culture (Wb) - Anticubital Right Blood Culture - Final Dosing Weight Weight used for dosin kg Estimated Creatinine Clearance Estimated Creatinine Clearance: 67.5 Goal Trough Goal Trough: 15-20 mcg/mL Pharmacy Plan for Drug Dosing Pharmacy Plan for Drug Dosing: Vancomycin trough level of 24.9, drawn 10.5hrs post-dose, was above the target range. Will suspend current dosing and draw a random vanco level in 12 hours. Pharmacy Service will continue to monitor and adjust dosing as required. Follow-Up Labs Follow-Up Labs: Trough: Vancomycin (random) Date/Time Labs Ordered Labs to be done on [date and time ordered]: 09/08/24 @0930 (random)
[2024-09-08] MEDS: oxyCODONE 5 MG Tablet PO ×2 (00:11→12:51)
[2024-09-08] MEDS: Insulin Lispro 100 UNIT/ML INSULN.PEN SC ×5 (00:11→23:35)
[2024-09-08 00:36] LABS: Bedside Glucose 264 mg/dL (74-106)
[2024-09-08 03:51] VITALS: BP 129/75; PULSE 94; RESP 18; TEMP 36.5; O2SAT 100
[2024-09-08 05:22] VITALS: BMI 35.9
[2024-09-08] MEDS: Lactulose 20 GM/30 ML UDC PO ×3 (06:10→22:30)
[2024-09-08 06:54] LABS: Bedside Glucose 244 mg/dL (74-106)
[2024-09-08] MEDS: Pantoprazole Sodium 40 MG in 0.9% Normal Saline (100mL MB+) 100 ML 330 MG IV (09:02)
[2024-09-08] MEDS: Lidocaine 5% Patch 3 PATCH TOPICAL (09:06)
[2024-09-08] MEDS: rifAXIMin 550 MG Tablet PO ×2 (09:06→22:30)
[2024-09-08] MEDS: 0.9% Saline Lock 10 ML Syringe IV ×3 (09:08→22:36)
[2024-09-08 09:45] VITALS: BP 136/75; PULSE 96; RESP 18; TEMP 36.9; O2SAT 98
[2024-09-08 09:56] LABS: Vancomycin, Random Level 16.5 ug/mL (0.0-15.0)
[2024-09-08] MEDS: Ceftriaxone 2 GM in 0.9% Normal Saline (50mL MB+) 50 ML IV (10:07)
--- NOTE | 2024-09-08 10:12 | CT_ITS ---
PROCEDURE: ABDOMEN/PELVIS WITHOUT CONT REASON FOR EXAM: Cirrhosis. Renal failure. TECHNIQUE: Abdomen and pelvis CT without intravenous contrast. COMPARISON: Comparison is made with prior study dated September 04, 2024. FINDINGS: Noncontrast technique limits evaluation of the abdominal and pelvic viscera. Lung bases: Clear. Coronary artery calcification. Liver: Findings in keeping with cirrhosis of the liver. Gallbladder: Several calcified gallstones. Spleen: Splenomegaly. Varices are seen in the splenic hilum. Pancreas: Unremarkable. Adrenals: Unremarkable. Kidneys: Left staghorn calculus with mild left hydronephrosis and left perinephric stranding. A left-sided double-J stent catheter is seen. Bladder: The urinary bladder is only partially filled although there is evidence of diffuse bladder wall thickening. Prostatic calcifications. Bowel: Unremarkable. Fluid-filled umbilical hernia. Moderate-sized left inguinal hernia containing fluid as well as a small right inguinal hernia. Appendix: Normal. Lymph nodes: No suspicious lymph node enlargement. Vasculature: Major vascular structures are unremarkable. Peritoneum / Retroperitoneum: Ascites in the upper quadrants as well as in the pelvis. Bones: Degenerative changes of the spine. Loss of height of the superior endplate of the T12 vertebrae. CT/Abdomen/Pelvis without Cont IMPRESSION: Ascites. Cirrhotic liver and splenomegaly. Varices are seen in the splenic hilum. There has been essentially no change since prior study. One or more dose reduction techniques were used (e.g., Automated exposure contr ol, adjustment of the mA and/or kV according to patient size, use of iterative reconstruction technique). Reading Location: [place] [id number]
--- NOTE | 2024-09-08 10:16 | PCM.RX.CS ---
Consult Antibiotic Management Pharmacy has been consulted to manage selected antibiotic: Vancomycin Type of Intervention Type of Consult: Follow-up Prior Doses of Antibiotics Prior Doses of Antibiotics Received/Current Regimen: the most recent dose before it was held due to a high trough was 1250mg IV q12h Labs Labs: Sodium 134 mmol/L (136-145) L 09/07/24 03:55 Potassium 3.8 mmol/L (3.5-5.1) 09/07/24 03:55 Chloride 108 mmol/L (98-107) H 09/07/24 03:55 Carbon Dioxide 17.0 mmol/L (21.0-32.0) L 09/07/24 03:55 Anion Gap 10 (5-15) 09/07/24 03:55 BUN 20 mg/dL (7-18) H 09/07/24 03:55 Creatinine 1.47 mg/dL (0.70-1.30) H 09/07/24 03:55 Est GFR (MDRD) Af Amer 63 mL/min (>60) 09/07/24 03:55 Est GFR (MDRD) Non-Af 52 mL/min (>60) L 09/07/24 03:55 BUN/Creatinine Ratio 13.6 RATIO (10-20) 09/07/24 03:55 Glucose 231 mg/dL (74-106) H 09/07/24 03:55 Vancomycin Trough 24.9 ug/mL (5.0-15.0) H 09/07/24 21:39 Random Vancomycin 16.5 ug/mL (0.0-15.0) H 09/08/24 09:11 Microbiology Microbiology: Microbiology 09/05/24 01:02 Blood Culture (Wb) - Anticubital Right Blood Culture - Final Staphylococcus epidermidis 09/04/24 22:48 Urine Catheter - Catheter Urine Culture - Final Staphylococcus epidermidis 09/05/24 00:50 Blood Culture (Wb) - Anticubital Right Bacteria Detection (PCR) - Final Staphylococcus epidermidis mecA Resistance Marker 09/05/24 00:50 Blood Culture (Wb) - Anticubital Right Blood Culture - Final Dosing Weight Weight used for dosin.5 kg Estimated Creatinine Clearance Estimated Creatinine Clearance: 68ml/min Goal Trough Goal Trough: 15-20 mcg/mL Pharmacy Plan for Drug Dosing Pharmacy Plan for Drug Dosing: The vanc random level drawn at 09:11 today was 16.5. This is back below 20 so will resume dosing at a new dose of 1500mg IV q24h. Will check a trough before the 3rd dose. Pharmacy Service will continue to monitor and adjust dosing as required. Follow-Up Labs Follow-Up Labs: Trough: Vancomycin Date/Time Labs Ordered Labs to be done on [date and time ordered]: 09/10/24 10:30
[2024-09-08] MEDS: Vancomycin Trough/Random Due 1 LAB MC (10:59)
--- NOTE | 2024-09-08 12:07 | CASEMGMT ---
SW spoke with patient and let him know that referrals were sent to the 3 [place] facilities. [place] and [facility] are full, but [facility] accepted him. SW asked patient if that is okay. Patient told SW to call his significant other Mary and son Leopoldo. Patient said if they are okay with it he is okay with it. Patient then asked SW to let him know what they say. SW called patient's son Leopoldo. Introduced self and role at [facility]. SW explained above. Leopoldo said he is fine with [facility] and Mary was in the background and she said yes that is fine. SW went to notify patient, but he was sleeping. SW will check back. Hortencia Fleming GRAIN ELEVATOR WORKER LEODAN
[2024-09-08] MEDS: Vancomycin HCl 1,500 MG in 0.9% Normal Saline (500mL Bag) 500 ML 250 MG IV (12:47)
[2024-09-08 13:05] LABS: Bedside Glucose 244 mg/dL (74-106)
--- NOTE | 2024-09-08 13:08 | PCM.PN.ID ---
Physical Exam Narrative Sleeping this AM, no fever Const no apparent distress Resp normal air movement and clear to auscultation bilaterally Cardio regular rate and regular rhythm GI soft to palpation, non-tender and non-distended Skin no rashes or lesions noted ID ID: Route of nutrition/ use of supplements: [] Nutritional Intake: [] IV Site: [] Del Castillo Catheter: [] Assessment & Plan Assessment/Plan (1) Cirrhosis of liver: (2) Acute cystitis with hematuria: (3) Leukocytosis: QUALIFIERS: Leukocytosis type: unspecified Qualified Code(s): D72.829 - Elevated white blood cell count, unspecified PLAN: 1 of 2 bcx with MRSE. Paired bcx remains neg, possible contaminant. Ucx also with CoNS. Ureteral stent placed 09/05/24. Cont vanc, will stop ceftriaxone. Will follow
[2024-09-08 15:23] VITALS: BP 146/84; PULSE 90; RESP 16; TEMP 36.9; O2SAT 100
--- NOTE | 2024-09-08 16:13 | PN.RENAL_ITS ---
Subjective Subjective no new events Objective Data Objective Data Vital Signs: Vital Signs Temp Pulse Resp BP Pulse Ox O2 Del Method O2 Flow Rate 98.5 F 90 16 146/84 H 100 Room Air 8 09/08/24 15:23 09/08/24 15:23 09/08/24 15:23 09/08/24 15:23 09/08/24 15:23 09/08/24 15:23 09/06/24 05:00 FiO2 21 09/07/24 01:24 Oxygen Flow Rate (L/min) 8 Oxygen Delivery Method Room Air Weight: 110.5 kg Body Mass Index (BMI) 35.9 Intake & Output: Intake and Output for Last 24 Hours 09/06/24 09/07/24 09/08/24 23:59 23:59 23:59 Intake Total 2350 / 2850 1415 / 1415 690 / 690 Output Total 350 / 800 750 / 750 400 / 400 Balance 1999 / 2049 665 / 665 290 / 290 Lab / Micro Data 09/07/24 03:55 09/07/24 03:55 Labs: Laboratory Results - last 24 hr 09/07/24 17:25: POC Glucose 215 H 09/07/24 21:39: Vancomycin Trough 24.9 H 09/08/24 00:10: POC Glucose 264 H 09/08/24 06:08: POC Glucose 244 H 09/08/24 09:11: Random Vancomycin 16.5 H 09/08/24 12:43: POC Glucose 244 H Micro: Microbiology 09/05/24 01:02 Blood Culture (Wb) - Anticubital Right Blood Culture - Final Staphylococcus epidermidis 09/04/24 22:48 Urine Catheter - Catheter Urine Culture - Final Staphylococcus epidermidis 09/05/24 00:50 Blood Culture (Wb) - Anticubital Right Bacteria Detection (PCR) - Final Staphylococcus epidermidis mecA Resistance Marker 09/05/24 00:50 Blood Culture (Wb) - Anticubital Right Blood Culture - Final Radiography Diagnostic Testing: Radiology Impression Abdomen/Pelvis CT 09/08/24 10:12 IMPRESSION: Ascites. Cirrhotic liver and splenomegaly. Varices are seen in the splenic hilum. There has been essentially no change since prior study. One or more dose reduction techniques were used (e.g., Automated exposure control, adjustment of the mA and/or kV according to patient size, use of iterative reconstruction technique). Reading Location: [facility] Physical Exam Narrative Alert and oriented, no apparent distress S1, S2, RRR Lungs sound clear anteriorly and posteriorly. 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 ISABEL felt to be prerenal secondary to sepsis, hypotension with poor renal perfusion (patient was on IV pressors) and with IV fluids alone as well as a dose of albumin renal function improved. Patient has never required any renal replacement therapy. Renal function was improving by time of hospital discharge. Patient admitted on 09/05/2024 to ICU for sepsis protocol for suspected sepsis/acute cystitis, abdominal pain, back pain, left staghorn calculus underwent cystoscopy and left stent placement yesterday per Dr. Rascon. Previous admission serum creatinine peaked 5.63 on August 29 and today his creatinine is 1.72 mg/dL. Patient is nonoliguric. Volume status appears near euvolemic. No hyperkalemia. Overall renal function stable and has improved.
--- NOTE | 2024-09-08 17:04 | PN.HOSP_ITS ---
Reason for Visit Reason for Visit: Diagnoses Elevated white blood cell count, unspecified (09/05/24) Obesity, unspecified (09/05/24) Other disorders of bilirubin metabolism (09/05/24) Acidosis, unspecified (09/05/24) Obstructive sleep apnea (adult) (pediatric) (09/05/24) Other chronic pain (09/05/24) Metabolic encephalopathy (09/05/24) Other hypotension (09/05/24) Hypotension, unspecified (09/05/24) Unspecified cirrhosis of liver (09/05/24) Nonalcoholic steatohepatitis (HARRIS) (09/05/24) Hepatic encephalopathy (09/05/24) Low back pain, unspecified (09/05/24) Acute kidney failure, unspecified (09/05/24) Calculus of kidney (09/05/24) Disorder of kidney and ureter, unspecified (09/05/24) Acute cystitis with hematuria (09/05/24) Difficulty in walking, not elsewhere classified (09/05/24) Weakness (09/05/24) Objective Data Objective Data Vital Signs: Vital Signs Temp Pulse Resp BP Pulse Ox O2 Del Method O2 Flow Rate 98.5 F 90 16 146/84 H 100 Room Air 8 09/08/24 15:23 09/08/24 15:23 09/08/24 15:23 09/08/24 15:23 09/08/24 15:23 09/08/24 15:23 09/06/24 05:00 FiO2 21 09/07/24 01:24 Oxygen Flow Rate (L/min) 8 Oxygen Delivery Method Room Air Weight: 243 lb 9.773 oz Body Mass Index (BMI) 35.9 Intake & Output: Intake and Output for Last 24 Hours 09/06/24 09/07/24 09/08/24 23:59 23:59 23:59 Intake Total 2350 / 2850 1415 / 1415 690 / 690 Output Total 350 / 800 750 / 750 400 / 400 Balance 1999 665 / 665 290 / 290 Lab / Micro Data 09/07/24 03:55 09/07/24 03:55 Labs: Laboratory Results - last 24 hr 09/07/24 17:25: POC Glucose 215 H 09/07/24 21:39: Vancomycin Trough 24.9 H 09/08/24 00:10: POC Glucose 264 H 09/08/24 06:08: POC Glucose 244 H 09/08/24 09:11: Random Vancomycin 16.5 H 09/08/24 12:43: POC Glucose 244 H Micro: Microbiology 09/05/24 01:02 Blood Culture (Wb) - Anticubital Right Blood Culture - Final Staphylococcus epidermidis 09/04/24 22:48 Urine Catheter - Catheter Urine Culture - Final Staphylococcus epidermidis 09/05/24 00:50 Blood Culture (Wb) - Anticubital Right Bacteria Detection (PCR) - Final Staphylococcus epidermidis mecA Resistance Marker 09/05/24 00:50 Blood Culture (Wb) - Anticubital Right Blood Culture - Final Radiography Diagnostic Testing: Radiology Impression Abdomen/Pelvis CT 09/08/24 10:12 IMPRESSION: Ascites. Cirrhotic liver and splenomegaly. Varices are seen in the splenic hilum. There has been essentially no change since prior study. One or more dose reduction techniques were used (e.g., Automated exposure control, adjustment of the mA and/or kV according to patient size, use of iterative reconstruction technique). Reading Location: [place] [id number] Physical Exam Narrative Seen and examined. Patient complain of severe lumbar spine pain and also anterior abdominal pain, nonspecific diffuse and generalized. Patient states he is moving bowel. Patient is morbidly obese. No fever. CT abdomen/pelvis ordered Physical exam: General: Alert, Oriented x3, Cooperative. Obesity grade 1 BMI 34.2 kg/m? HEENT: Atraumatic, PERRLA, EOMI, Normocephalic Oral: Deep oropharyngeal structures not visualized Neck: Supple, No JVD, Negative Carotid Bruits Chest wall/Lungs: Air entry diminished in bilateral lung bases. No crepitation/rhonchi Cardiovascular: Regular rate, Regular Rhythm, Normal S1, Normal S2, systolic murmur Abdomen: Bowel Sounds Present, Soft, mild left flank tenderness Non-Distended : Dark-colored/mustard color urine no dysuria. No suprapubic tenderness. Extremities: No edema, Capillary Refill Less than 3 Seconds Skin: No rashes, No breakdown Musculoskeletal: Tenderness present in lumbar area. No Tenderness to Palpation of Joints or Extremities Neurological: Cranial nerves II-XII grossly intact, DTR 2+/4. No acute focal neurological deficit. Psych/Mental Status: Flat affect Assessment & Plan Assessment/Plan (1) Staghorn calculus: (2) Acute cystitis with hematuria: (3) Lactic acidosis: (4) Metabolic encephalopathy: (5) Liver cirrhosis secondary to HARRIS (nonalcoholic steatohepatitis): (6) Chronic hypotension: PLAN: Plan 59-year-old gentleman was brought to ED by EMS for worsening back pain and abdominal pain for about a week. No nausea vomiting, fever or chill. 1. Back pain/abdominal pain: Patient did not had tachycardia, hypotension but mild tachypnea with no hypoxia. Patient has leukocytosis with immature granulocytes 1.5% suggestive of left shift but he had on 09/02 prior to discharge. Lactic acidosis, lactic acid 3.2. Started on IV Zosyn empirically. Urologist consulted. Patient had left ureteric stent inserted. On pain control. Patient does not meet criteria for sepsis. 2/3: Patient still has severe left flank/back pain. Urologist informed. Unclear about further plan regarding lithotripsy/nephrostomy for big staghorn calculus with pelvis caliectasis. Prelim blood culture shows MRSA, mecA resistance marker positive. Repeat blood culture ordered. IV vancomycin started. ID consult requested. Urine culture pending. 2/: Leukocytosis improving. Mild thrombocytopenia. Continue antibiotic. One of the 2 bottles growing Staph epidermidis, MRSE. Discussed with ID. Urine culture also showing MRSE. antibiotic was changed to vancomycin and ceftriaxone yesterday Back pain: 09/08: Patient is stated he fell down 2 to 3 days prior to admission. He had thoracic spine CT cervical spine, thoracic and lumbar spine CT on 08/29. Stable chronic appearing mild wedge deformity of T11 and T12 otherwise no acute bony abnormality. On further review it patient visited ED on 08/21 after fall and then sent home. Again came to ED on 08/29 for hypotension, back pain and was admitted and discharged on 09/02. He came back on 09/[address] abdomen/pelvis did not show acute change. 2. Acute Metabolic Encephalopathy with UDS positive for opiates: Acute metabolic encephalopathy resolved. 09/07: Mental status is good MRSA bacteremia 1 of 2 blood culture: Possible contamination. Vancomycin continued. Ceftriaxone started. ID follow-up reviewed 3. Recent admission here from August 29, 2024 to September 02, 2024 due to hepatic encephalopathy from decompensated nonalcoholic, MASLD cirrhosis. Acute kidney injury,: Patient creatinine was 5.63 on 08/29, gradually improved to 1.72 today. Since mainly postobstructive from renal calculus but calculus was unilateral. Suspicion of due to infection. [employer] consulted for further opinion 4. History of nonalcoholic cirrhotic liver disease with corresponding laboratory findings of Hyperbilirubinemia with total bilirubin of 3.1 mg/dL, direct bilirubin of 1.8 mg/dL, AST 156 units/L, ALT of 79 units/L, alkaline phosphatase of 269 units/L: 5. Obesity; with BMI of 35.1 this admission and ABBY; on CPAP: Weight loss recommended 6. OA; with chronic back pain complicated by mechanical fall on August 21, 2024 with a ED visit at that time showing acute on chronic lumbar spine discomfort with otherwise unremarkable ED evaluation but patient noted to have severe pain with ambulation this admission: PT OT 7. Chronic Hypotension; on midodrine 3 times daily - Resume midodrine as previous. 2/3: Patient blood pressure has been good since yesterday. Midodrine discontinued 8. Former tobacco abuse (quit 2023) - Noted. 9. DM-2; of unknown control on insulin glargine 10 units SQ twice daily - NPO for now. FSBS q. 6h plus lowest intensity SSI. Check hemoglobin A1c to objectively assess quality of diabetic control. 10. History of tobacco abuse - Noted. 11. Chronic Anemia/Thrombocytopenia; presumed to be due to underlying liver disease - Stable with hemoglobin of 9.4 g/dL, MCV of 86.6 fL and thrombocytopenia of 103K present on admission which approximates his baseline levels. 12. DVT prophylaxis - SCD's only with possible impending urologic procedure. Living will/advanced directive/end of life care: Patient he states he does have living will or advanced directive although is not clear. He states that his fianc?e may be power of commercial litigation attorney for health though he is not sure. After discussion of benefits/risks procedures involved with full code, DNR CC arrest and DNR CC, the patient opted for full code. Patient does want artificial life support including intubation, tube feed, ventilator and/chest compression, central venous catheter, vasopressor and DC shock if needed Total time spent in [id number] encounter in discussion of advanced directive 17 minutes. Clinical Impression(s) from Imaging Studies Abdomen/Pelvis CT 09/04/24 23:30 IMPRESSION: 1. Cirrhosis with severe ascites. 2. 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 3. Marked splenomegaly. 4. Cholelithiasis. Pericholecystic edema can be seen with ascites. 5. Left staghorn calculus with pelvicaliectasis. 6. Suspicion of small left renal cyst. 7. Chronic prostatitis. Small prostate gland. 8. Anasarca. 9. Fluid-filled ventral hernia. 10. Fluid filled bilateral inguinal hernias. 11. Other nonacute findings detailed above. Reading Location: [facility] Charges/Coding Visit Charges Inpatient E&M: 05934 Subs Hosp L2
[2024-09-08 18:29] LABS: Bedside Glucose 247 mg/dL (74-106)
[2024-09-08 22:26] VITALS: BP 121/69; PULSE 96; RESP 18; TEMP 37; O2SAT 100
[2024-09-08] MEDS: HYDROmorphone 0.5 MG/0.5 ML SYRINGE 1 MG IV (22:32)
[2024-09-08 23:55] LABS: Bedside Glucose 250 mg/dL (74-106)
[2024-09-09 03:28] VITALS: BP 109/71; PULSE 92; RESP 18; TEMP 36.7; O2SAT 99
[2024-09-09] MEDS: Insulin Lispro 100 UNIT/ML INSULN.PEN SC ×4 (05:44→21:17)
[2024-09-09] MEDS: Lactulose 20 GM/30 ML UDC PO ×2 (05:45→15:30)
[2024-09-09 06:00] VITALS: BMI 35.9
[2024-09-09 06:36] LABS: Bedside Glucose 247 mg/dL (74-106)
[2024-09-09 09:23] VITALS: BP 132/75; PULSE 89; RESP 18; TEMP 36.8; O2SAT 98
[2024-09-09] MEDS: Lidocaine 5% Patch 3 PATCH TOPICAL (09:25)
[2024-09-09] MEDS: rifAXIMin 550 MG Tablet PO ×2 (09:25→21:11)
[2024-09-09] MEDS: oxyCODONE 5 MG Tablet PO ×2 (09:29→16:36)
[2024-09-09] MEDS: 0.9% Saline Lock 10 ML Syringe IV (09:34)
[2024-09-09] MEDS: Pantoprazole Sodium 40 MG in 0.9% Normal Saline (100mL MB+) 100 ML 330 MG IV (09:34)
--- NOTE | 2024-09-09 10:09 | CASEMGMT ---
Social Work SW met with pt and notified that [facility] has accepted and SO Mary and son Leopoldo are in agreement with pt going to [facility] at discharge. Pt agreeable to dc plan. Precert will be needed prior to admission. Pt is not medically ready for precert to be started. Plan: [facility], pending precert JANETTE Roque
[2024-09-09 10:40] LABS: Hematocrit 24.3 % (40-54); Hemoglobin 8.2 g/dL (13.0-16.5); Mean Corp Hgb Conc 33.7 g/dL (32-36); Mean Corpuscular Hgb 29.7 pg (27.0-32.0); Mean Platelet Vol. 11.7 fl (6.2-12.0); Platelet Count 119 K/mm3 (150-450); RBC Distribution Width CV 18.5 % (11.6-14.6); RBC Distribution Width SD 52.2 fl (35.1-43.9); Red Blood Count 2.76 M/mm3 (4.6-6.2); White Blood Count 9.9 K/mm3 (4.4-11.0)
[2024-09-09] MEDS: Vancomycin HCl 1,500 MG in 0.9% Normal Saline (500mL Bag) 500 ML 250 MG IV (10:44)
[2024-09-09 11:06] LABS: Anion Gap 8 (5-15); BUN 10 mg/dL (7-18); Calcium,Total 8.6 mg/dL (8.5-10.1); Chloride 109 mmol/L (98-107); Creatinine, Serum 1.11 mg/dL (0.70-1.30); EST Glomerular Filtration Rate 72 mL/min (>60); Est Glom Filt Rate - Afr Amer 88 mL/min (>60); Estimated Creatinine Clearance 88.83 ml/min; Glucose 220 mg/dL (74-106); Potassium 3.3 mmol/L (3.5-5.1); Sodium Level 135 mmol/L (136-145)
--- NOTE | 2024-09-09 11:08 | PCM.PN.ID ---
Physical Exam Narrative Ongoing abd pain, no fever Const alert and no apparent distress General Appearance: cooperative Resp normal air movement and clear to auscultation bilaterally Cardio regular rate and regular rhythm GI GI Narrative: mild distension Skin no rashes or lesions noted ID ID: Route of nutrition/ use of supplements: [] Nutritional Intake: [] IV Site: [] Del Castillo Catheter: [] Assessment & Plan Assessment/Plan (1) Cirrhosis of liver: (2) Acute cystitis with hematuria: (3) Leukocytosis: QUALIFIERS: Leukocytosis type: unspecified Qualified Code(s): D72.829 - Elevated white blood cell count, unspecified PLAN: 1 of 2 bcx with MRSE. Paired bcx remains neg, possible contaminant. Ucx also with CoNS. Ureteral stent placed 09/05/24. Cont vanc, plan on short course po doxy 100mg bid at discharge. Will follow
[2024-09-09 12:13] LABS: Bedside Glucose 193 mg/dL (74-106)
--- NOTE | 2024-09-09 12:36 | CASEMGMT ---
Updates sent to [facility] with note to submit for precert. India Platt DC Planning Asst.
--- NOTE | 2024-09-09 12:41 | PCM.PN.HOSP ---
Reason for Visit Reason for Visit: Diagnoses Elevated white blood cell count, unspecified (09/05/24) Obesity, unspecified (09/05/24) Other disorders of bilirubin metabolism (09/05/24) Acidosis, unspecified (09/05/24) Obstructive sleep apnea (adult) (pediatric) (09/05/24) Other chronic pain (09/05/24) Metabolic encephalopathy (09/05/24) Other hypotension (09/05/24) Hypotension, unspecified (09/05/24) Unspecified cirrhosis of liver (09/05/24) Nonalcoholic steatohepatitis (HARRIS) (09/05/24) Hepatic encephalopathy (09/05/24) Low back pain, unspecified (09/05/24) Acute kidney failure, unspecified (09/05/24) Calculus of kidney (09/05/24) Disorder of kidney and ureter, unspecified (09/05/24) Acute cystitis with hematuria (09/05/24) Difficulty in walking, not elsewhere classified (09/05/24) Weakness (09/05/24) Subjective Subjective Saw patient at bedside this morning. Patient was laying back comfortably in bed, conversing normally, in no acute distress. Had continued low back pain this morning, similar to previous days. No other new concerns today. Objective Data Objective Data Vital Signs: Vital Signs Temp Pulse Resp BP Pulse Ox O2 Del Method O2 Flow Rate 98.2 F 89 18 132/75 H 98 Room Air 8 09/09/24 09:23 09/09/24 09:23 09/09/24 09:23 09/09/24 09:23 09/09/24 09:23 09/09/24 09:23 09/06/24 05:00 FiO2 21 09/07/24 01:24 Oxygen Flow Rate (L/min) 8 Oxygen Delivery Method Room Air Weight: 110.4 kg Body Mass Index (BMI) 35.9 Intake & Output: Intake and Output for Last 24 Hours 09/07/24 09/08/24 09/09/24 23:59 23:59 23:59 Intake Total 1415 / 1415 690 / 690 110 / 110 Output Total 750 / 750 700 / 1200 750 / 750 Balance 665 / 665 -10 / -510 -640 / -640 Lab / Micro Data 09/09/24 10:23 09/09/24 10:23 Labs: Laboratory Results - last 24 hr 09/08/24 12:43: POC Glucose 244 H 09/08/24 18:03: POC Glucose 247 H 09/08/24 23:34: POC Glucose 250 H 09/09/24 05:43: POC Glucose 247 H 09/09/24 10:23: WBC 9.9, RBC 2.76 L, Hgb 8.2 L, Hct 24.3 L, MCV 88.0, MCH 29.7, MCHC 33.7, RDW Std Deviation 52.2 H, RDW Coeff of Francis 18.5 H, Plt Count 119 L, MPV 11.7, Sodium 135 L, Potassium 3.3 L, Chloride 109 H, Carbon Dioxide 18.0 L, Anion Gap 8, BUN 10, Creatinine 1.11, Estim Creat Clear Calc 88.83, Est GFR (MDRD) Af Amer 88, Est GFR (MDRD) Non-Af 72, BUN/Creatinine Ratio 9.0 L, Glucose 220 H, Calcium 8.6 09/09/24 11:39: POC Glucose 193 H Micro: Microbiology 09/06/24 09:25 Blood Culture (Wb) - Left Hand Blood Culture - Preliminary No growth in 48 hours. 09/05/24 01:02 Blood Culture (Wb) - Anticubital Right Blood Culture - Final Staphylococcus epidermidis 09/04/24 22:48 Urine Catheter - Catheter Urine Culture - Final Staphylococcus epidermidis 09/05/24 00:50 Blood Culture (Wb) - Anticubital Right Bacteria Detection (PCR) - Final Staphylococcus epidermidis mecA Resistance Marker 09/05/24 00:50 Blood Culture (Wb) - Anticubital Right Blood Culture - Final Radiography Diagnostic Testing: Radiology Impression Abdomen/Pelvis CT 09/08/24 10:12 IMPRESSION: Ascites. Cirrhotic liver and splenomegaly. Varices are seen in the splenic hilum. There has been essentially no change since prior study. One or more dose reduction techniques were used (e.g., Automated exposure control, adjustment of the mA and/or kV according to patient size, use of iterative reconstruction technique). Reading Location: [facility] Physical Exam Const alert, oriented x3 and no apparent distress Constitutional Narrative: Middle-age male, class II obesity, mildly fatigued appearing but otherwise laying back comfortably in bed, conversing normally, in no acute distress. General Appearance: cooperative and comfortable HEENT normocephalic, head/scalp atraumatic, hearing grossly normal bilaterally, nasal mucous membranes and turbinates normal and moist oral mucous membranes Eyes PERRL, EOMs intact bilaterally and conjunctivae normal Neck full ROM Chest inspection of chest normal Resp normal respiratory effort, normal air movement, no use of accessory muscles and clear to auscultation bilaterally Cardio regular rate, regular rhythm, no murmurs and peripheral pulses 2+ throughout GI normal to inspection, nondistended, normoactive bowel sounds, soft to palpation, non-tender and non-distended Back/Spine normal ROM Extremity normal to inspection and no pedal edema Skin no rashes or lesions noted Neuro no focal motor deficits Speech: speech normal Psych mental status grossly normal Assessment & Plan Assessment/Plan (1) Staghorn calculus: (2) Acute cystitis with hematuria: (3) Generalized weakness: (4) Impaired renal function: PLAN: Plan Patient is a 59-year-old male who presented [facility] ED on 09/05/2024 with worsening back pain. 1. Left-sided staghorn calculus with acute cystitis ? Urology followed. S/p cystoscopy with left ureteral stent placement on 09/05. Per urology, plan is for laser lithotripsy once infection has cleared. Completed course of IV ceftriaxone. No further needs while in patient, will need close outpatient follow-up with urology. 2. Concern for MRSE bacteremia ? ID following. Blood cultures +08/05 for MRSE. Possible contaminant but unclear. Continue IV vancomycin and plan for short course of p.o. doxycycline on discharge. 3. Acute on chronic back pain with debility ? PT/OT/case management following. Initially suspected that worsening back pain on admit was secondary to staghorn calculus, but back pain did not improve much with treatment of cystitis and stent placement. Notably had CT C/T/L-spine on 08/29 in the ED after a fall that showed no concerning findings, and repeat imaging here was again negative. Continue conservative pain management. Planning for SNF on discharge. 4. ISABEL, improving ? Nephrology following. Creatinine 5.63 on 08/29, baseline unclear prior to that. Creatinine has steadily improved with good urine output. Most recent creatinine 1.11 on 09/09. Continue to monitor daily BMP and urine output. 5. Decompensated nonalcoholic cirrhosis ? Recent admission here in late August for hepatic encephalopathy secondary to decompensated cirrhosis. Has elevated LFTs with hyperbilirubinemia but this has remained stable. Continue home Xifaxan and lactulose. 6. Chronic hypotension ? Continue home midodrine. 7. Class II obesity ? BMI 35.9 on admit. Complicates hospital course, care and prognosis. 8. Type 2 diabetes mellitus ? Continue home insulin glargine 10 units twice daily and sliding scale insulin with meals, adjust as needed. 9. History of tobacco abuse ? Encouraged continued cessation. 10. Chronic anemia and thrombocytopenia ? Hemoglobin remaining stable around baseline of 8-9. Platelets stable around baseline at 120. DVT prophylaxis: Heparin subcu CODE STATUS: Full code, verified Expected disposition: SNF, 1 to 2 days Total clinical time spent by myself addressing the patient's medical issues, reviewing all the data, and collaborating with patient's care team: 35 minutes. Charges/Coding Visit Charges Inpatient E&M: 05465 Subs Hosp L2
--- NOTE | 2024-09-09 13:00 | CASEMGMT ---
Social Work SW spoke with physician and pt will likely be ready for dc tomorrow. PASRR completed in HENS and SW notified DC leasing assistant that precert can be started at this time for admission to [facility] [place]. JANETTE Roque
[2024-09-09] MEDS: Potassium Chloride Oral Tablet 20 MEQ 40 MEQ PO (13:41)
[2024-09-09 14:45] VITALS: BP 125/71; PULSE 92; RESP 16; TEMP 36.8; O2SAT 96
[2024-09-09 17:14] LABS: Bedside Glucose 198 mg/dL (74-106)
[2024-09-09 21:07] VITALS: BP 142/75; PULSE 86; RESP 16; TEMP 36; O2SAT 97
[2024-09-09 22:15] LABS: Bedside Glucose 164 mg/dL (74-106)
[2024-09-10 03:05] VITALS: BP 121/59; PULSE 83; RESP 18; TEMP 36.4; O2SAT 98
[2024-09-10 05:21] VITALS: BMI 35.9
[2024-09-10 06:47] LABS: Bedside Glucose 134 mg/dL (74-106)
[2024-09-10] MEDS: oxyCODONE 5 MG Tablet PO ×2 (07:54→23:37)
[2024-09-10 08:39] LABS: Hematocrit 24.5 % (40-54); Hemoglobin 8.1 g/dL (13.0-16.5); Mean Corp Hgb Conc 33.1 g/dL (32-36); Mean Corpuscular Hgb 28.9 pg (27.0-32.0); Mean Corpuscular Volume 87.5 fL (80-94); Mean Platelet Vol. 11.7 fl (6.2-12.0); Platelet Count 124 K/mm3 (150-450); RBC Distribution Width CV 18.9 % (11.6-14.6); RBC Distribution Width SD 54.9 fl (35.1-43.9); White Blood Count 9.3 K/mm3 (4.4-11.0)
[2024-09-10 08:44] LABS: Anion Gap 7 (5-15); BUN 8 mg/dL (7-18); BUN/Creat Ratio 8.1 RATIO (10-20); Calcium,Total 8.4 mg/dL (8.5-10.1); Chloride 110 mmol/L (98-107); Creatinine, Serum 0.98 mg/dL (0.70-1.30); EST Glomerular Filtration Rate 83 mL/min (>60); Est Glom Filt Rate - Afr Amer 101 mL/min (>60); Estimated Creatinine Clearance 100.62 ml/min; Glucose 138 mg/dL (74-106); Potassium 3.6 mmol/L (3.5-5.1); Sodium Level 136 mmol/L (136-145)
[2024-09-10] MEDS: Pantoprazole Sodium 40 MG in 0.9% Normal Saline (100mL MB+) 100 ML 330 MG IV (09:51)
[2024-09-10] MEDS: 0.9% Saline Lock 10 ML Syringe IV (09:52)
[2024-09-10] MEDS: rifAXIMin 550 MG Tablet PO ×2 (09:53→21:12)
[2024-09-10] MEDS: Lidocaine 5% Patch 3 PATCH TOPICAL (09:55)
[2024-09-10 10:00] VITALS: BP 132/67; PULSE 92; RESP 18; TEMP 36.7; O2SAT 98
[2024-09-10 10:54] LABS: Vancomycin, Trough Level 15.7 ug/mL (5.0-15.0)
--- NOTE | 2024-09-10 11:04 | PHA.PHARE_ITS ---
Consult Antibiotic Management Pharmacy has been consulted to manage selected antibiotic: Vancomycin Type of Intervention Type of Consult: Follow-up Prior Doses of Antibiotics Prior Doses of Antibiotics Received/Current Regimen: current dose is 1500mg IV q24h Labs Labs: Sodium 136 mmol/L (136-145) 09/10/24 08:15 Potassium 3.6 mmol/L (3.5-5.1) 09/10/24 08:15 Chloride 110 mmol/L (98-107) H 09/10/24 08:15 Carbon Dioxide 19.0 mmol/L (21.0-32.0) L 09/10/24 08:15 Anion Gap 7 (5-15) 09/10/24 08:15 BUN 8 mg/dL (7-18) 09/10/24 08:15 Creatinine 0.98 mg/dL (0.70-1.30) 09/10/24 08:15 Est GFR (MDRD) Af Amer 101 mL/min (>60) 09/10/24 08:15 Est GFR (MDRD) Non-Af 83 mL/min (>60) 09/10/24 08:15 BUN/Creatinine Ratio 8.1 RATIO (10-20) L 09/10/24 08:15 Glucose 138 mg/dL (74-106) H 09/10/24 08:15 Vancomycin Trough 15.7 ug/mL (5.0-15.0) H 09/10/24 10:18 Random Vancomycin 16.5 ug/mL (0.0-15.0) H 09/08/24 09:11 Microbiology Microbiology: Microbiology 09/06/24 09:25 Blood Culture (Wb) - Left Hand Blood Culture - Preliminary No growth in 48 hours. 09/05/24 01:02 Blood Culture (Wb) - Anticubital Right Blood Culture - Final Staphylococcus epidermidis 09/04/24 22:48 Urine Catheter - Catheter Urine Culture - Final Staphylococcus epidermidis 09/05/24 00:50 Blood Culture (Wb) - Anticubital Right Bacteria Detection (PCR) - Final Staphylococcus epidermidis mecA Resistance Marker 09/05/24 00:50 Blood Culture (Wb) - Anticubital Right Blood Culture - Final Dosing Weight Weight used for dosin.4 kg Estimated Creatinine Clearance Estimated Creatinine Clearance: 100ml/min Goal Trough Goal Trough: 15-20 mcg/mL Pharmacy Plan for Drug Dosing Pharmacy Plan for Drug Dosing: The vanc trough drawn at 10:18 today (approx 23.5 hours after the previous dose) was 15.7. This is in goal range so keep same dose. Repeat a trough in 2 days per [facility] protocol. Pharmacy Service will continue to monitor and adjust dosing as required. Follow-Up Labs Follow-Up Labs: Trough: Vancomycin Date/Time Labs Ordered Labs to be done on [date and time ordered]: 09/12/24 10:30
--- NOTE | 2024-09-10 11:08 | PN.RENAL_ITS ---
Subjective Subjective Resting in bed. No overnight events. No complaints. Objective Data Objective Data Vital Signs: Vital Signs Temp Pulse Resp BP Pulse Ox O2 Del Method O2 Flow Rate 98.1 F 92 18 132/67 H 98 Room Air 8 09/10/24 10:00 09/10/24 10:00 09/10/24 10:00 09/10/24 10:00 09/10/24 10:00 09/10/24 10:00 09/06/24 05:00 FiO2 21 09/07/24 01:24 Oxygen Flow Rate (L/min) 8 Oxygen Delivery Method Room Air Weight: 110.4 kg Body Mass Index (BMI) 35.9 Intake & Output: Intake and Output for Last 24 Hours 09/08/24 09/09/24 09/10/24 23:59 23:59 23:59 Intake Total 690 / 690 640 / 640 110 / 110 Output Total 700 / 1200 910 / 1410 850 / 850 Balance -10 / -510 -270 / -770 -740 / -740 Lab / Micro Data 09/10/24 08:15 09/10/24 08:15 Labs: Laboratory Results - last 24 hr 09/09/24 11:39: POC Glucose 193 H 09/09/24 16:39: POC Glucose 198 H 09/09/24 21:16: POC Glucose 164 H 09/10/24 06:25: POC Glucose 134 H 09/10/24 08:15: WBC 9.3, RBC 2.80 L, Hgb 8.1 L, Hct 24.5 L, MCV 87.5, MCH 28.9, MCHC 33.1, RDW Std Deviation 54.9 H, RDW Coeff of Francis 18.9 H, Plt Count 124 L, MPV 11.7, Sodium 136, Potassium 3.6, Chloride 110 H, Carbon Dioxide 19.0 L, Anion Gap 7, BUN 8, Creatinine 0.98, Estim Creat Clear Calc 100.62, Est GFR (MDRD) Af Amer 101, Est GFR (MDRD) Non-Af 83, BUN/Creatinine Ratio 8.1 L, G lucose 138 H, Calcium 8.4 L 09/10/24 10:18: Vancomycin Trough 15.7 H Micro: Microbiology 09/06/24 09:25 Blood Culture (Wb) - Left Hand Blood Culture - Preliminary No growth in 48 hours. 09/05/24 01:02 Blood Culture (Wb) - Anticubital Right Blood Culture - Final Staphylococcus epidermidis 09/04/24 22:48 Urine Catheter - Catheter Urine Culture - Final Staphylococcus epidermidis 09/05/24 00:50 Blood Culture (Wb) - Anticubital Right Bacteria Detection (PCR) - Final Staphylococcus epidermidis mecA Resistance Marker 09/05/24 00:50 Blood Culture (Wb) - Anticubital Right Blood Culture - Final Physical Exam Narrative Alert and oriented, no apparent distress S1, S2, RRR Lungs sound clear anteriorly and posteriorly. 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 ISABEL felt to be prerenal secondary to sepsis, hypotension with poor renal perfusion (patient was on IV pressors) and with IV fluids alone as well as a dose of albumin renal function improved. Patient has never required any renal replacement therapy. Renal function was improving by time of hospital discharge. Patient admitted on 09/05/2024 to ICU for sepsis protocol for suspected sepsis/acute cystitis, abdominal pain, back pain, left staghorn calculus underwent cystoscopy and left stent placement yesterday per Dr. Rascon. SCr 1.82mg/dL on 09/04. Previous admission serum creatinine peaked 5.63 on August 29. Today serum creatinine 0.98 mg/dL. Potassium normal. Bicarb improving. Patient is nonoliguric. Volume status appears near euvolemic. Overall renal function stable and has improved. Discharge planning in progress.
[2024-09-10] MEDS: Vancomycin Trough/Random Due 1 LAB MC (11:32)
[2024-09-10] MEDS: Vancomycin HCl 1,500 MG in 0.9% Normal Saline (500mL Bag) 500 ML 250 MG IV (11:35)
[2024-09-10] MEDS: Insulin Lispro 100 UNIT/ML INSULN.PEN SC ×3 (11:40→21:12)
[2024-09-10 11:58] LABS: Bedside Glucose 197 mg/dL (74-106)
[2024-09-10 15:28] VITALS: BP 130/71; PULSE 89; RESP 16; TEMP 37.1; O2SAT 97
--- NOTE | 2024-09-10 15:28 | CASEMGMT ---
Social Work Precert has not yet been obtained for placement at [facility]. SW attempted to update pt and pt sleeping soundly and would not awake. VM left with pt son requesting return call to update on dc. [facility] to call PCU if precert is obtained over the weekend. Green sheet on chart to facilitate a weekend discharge. Plan: [facility], pending precert S JANETTE Nails
[2024-09-10] MEDS: Lactulose 20 GM/30 ML UDC PO ×2 (15:31→21:12)
--- NOTE | 2024-09-10 16:50 | PN.HOSP_ITS ---
Reason for Visit Reason for Visit: Diagnoses Elevated white blood cell count, unspecified (09/05/24) Obesity, unspecified (09/05/24) Other disorders of bilirubin metabolism (09/05/24) Acidosis, unspecified (09/05/24) Obstructive sleep apnea (adult) (pediatric) (09/05/24) Other chronic pain (09/05/24) Metabolic encephalopathy (09/05/24) Other hypotension (09/05/24) Hypotension, unspecified (09/05/24) Unspecified cirrhosis of liver (09/05/24) Nonalcoholic steatohepatitis (HARRIS) (09/05/24) Hepatic encephalopathy (09/05/24) Low back pain, unspecified (09/05/24) Acute kidney failure, unspecified (09/05/24) Calculus of kidney (09/05/24) Disorder of kidney and ureter, unspecified (09/05/24) Acute cystitis with hematuria (09/05/24) Difficulty in walking, not elsewhere classified (09/05/24) Weakness (09/05/24) Subjective Subjective Saw patient at bedside this morning. Patient appeared similar to yesterday, was laying back fairly comfortably in bed and in no acute distress. No other new concerns today. Objective Data Objective Data Vital Signs: Vital Signs Temp Pulse Resp BP Pulse Ox O2 Del Method O2 Flow Rate 98.8 F 89 16 130/71 H 97 Room Air 8 09/10/24 15:28 09/10/24 15:28 09/10/24 15:28 09/10/24 15:28 09/10/24 15:28 09/10/24 15:28 09/06/24 05:00 FiO2 21 09/07/24 01:24 Oxygen Flow Rate (L/min) 8 Oxygen Delivery Method Room Air Weight: 110.4 kg Body Mass Index (BMI) 35.9 Intake & Output: Intake and Output for Last 24 Hours 09/08/24 09/09/24 09/10/24 23:59 23:59 23:59 Intake Total 690 / 690 640 / 640 640 / 640 Output Total 700 / 1200 910 / 1410 1050 / 1050 Balance -10 / -510 -270 / -770 -410 / -410 Lab / Micro Data 09/10/24 08:15 09/10/24 08:15 Labs: Laboratory Results - last 24 hr 09/09/24 16:39: POC Glucose 198 H 09/09/24 21:16: POC Glucose 164 H 09/10/24 06:25: POC Glucose 134 H 09/10/24 08:15: WBC 9.3, RBC 2.80 L, Hgb 8.1 L, Hct 24.5 L, MCV 87.5, MCH 28.9, MCHC 33.1, RDW Std Deviation 54.9 H, RDW Coeff of Francis 18.9 H, Plt Count 124 L, MPV 11.7, Sodium 136, Potassium 3.6, Chloride 110 H, Carbon Dioxide 19.0 L, Anion Gap 7, BUN 8, Creatinine 0.98, Estim Creat Clear Calc 100.62, Est GFR (MDRD) Af Amer 101, Est GFR (MDRD) Non-Af 83, BUN/Creatinine Ratio 8.1 L, G lucose 138 H, Calcium 8.4 L 09/10/24 10:18: Vancomycin Trough 15.7 H 09/10/24 11:39: POC Glucose 197 H Micro: Microbiology 09/06/24 09:25 Blood Culture (Wb) - Left Hand Blood Culture - Preliminary No growth in 48 hours. 09/05/24 01:02 Blood Culture (Wb) - Anticubital Right Blood Culture - Final Staphylococcus epidermidis 09/04/24 22:48 Urine Catheter - Catheter Urine Culture - Final Staphylococcus epidermidis 09/05/24 00:50 Blood Culture (Wb) - Anticubital Right Bacteria Detection (PCR) - Final Staphylococcus epidermidis mecA Resistance Marker 09/05/24 00:50 Blood Culture (Wb) - Anticubital Right Blood Culture - Final Physical Exam Const alert, oriented x3 and no apparent distress Constitutional Narrative: Middle-age male, class II obesity, mildly fatigued appearing but otherwise laying back comfortably in bed, conversing normally, in no acute distress. Stable. General Appearance: cooperative and comfortable HEENT normocephalic, head/scalp atraumatic, hearing grossly normal bilaterally, nasal mucous membranes and turbinates normal and moist oral mucous membranes Eyes PERRL, EOMs intact bilaterally and conjunctivae normal Neck full ROM Chest inspection of chest normal Resp normal respiratory effort, normal air movement, no use of accessory muscles and clear to auscultation bilaterally Cardio regular rate, regular rhythm, no murmurs and peripheral pulses 2+ throughout GI normal to inspection, nondistended, normoactive bowel sounds, soft to palpation, non-tender and non-distended Back/Spine normal ROM Extremity normal to inspection and no pedal edema Skin no rashes or lesions noted Neuro no focal motor deficits Speech: speech normal Psych mental status grossly normal Assessment & Plan Assessment/Plan (1) Staghorn calculus: (2) Acute cystitis with hematuria: (3) Generalized weakness: (4) Impaired renal function: PLAN: Plan Patient is a 59-year-old male who presented [facility] ED on 09/05/2024 with worsening back pain. 1. Left-sided staghorn calculus with acute cystitis ? Urology followed. S/p cystoscopy with left ureteral stent placement on 09/05. Per urology, plan is for laser lithotripsy once infection has cleared. Completed course of IV ceftriaxone. No further needs while in patient, will need close outpatient follow-up with urology. 2. Concern for MRSE bacteremia ? ID following. Blood cultures +08/05 for MRSE. Possible contaminant but unclear. Continue IV vancomycin and plan for short course of p.o. doxycycline on discharge. 3. Acute on chronic back pain with debility ? PT/OT/case management following. Initially suspected that worsening back pain on admit was secondary to staghorn calculus, but back pain did not improve much with treatment of cystitis and stent placement. Notably had CT C/T/L-spine on 08/29 in the ED after a fall that showed no concerning findings, and repeat imaging here was again negative. Continue conservative pain management. Planning for SNF placement on discharge. Medically stable for discharge on 09/10, awaiting pre-CERT. 4. ISABEL, improving ? Nephrology following. Creatinine 5.63 on 08/29, baseline unclear prior to that. Creatinine has steadily improved with good urine output. Most recent creatinine 0.98 on 09/10. No need to monitor further BMPs while inpatient. 5. Decompensated nonalcoholic cirrhosis ? Recent admission here in late August for hepatic encephalopathy secondary to decompensated cirrhosis. Has elevated LFTs with hyperbilirubinemia but this has remained stable. Continue home Xifaxan and lactulose. 6. Chronic hypotension ? Continue home midodrine. 7. Class II obesity ? BMI 35.9 on admit. Complicates hospital course, care and prognosis. 8. Type 2 diabetes mellitus ? Continue home insulin glargine 10 units twice daily and sliding scale insulin with meals, adjust as needed. 9. History of tobacco abuse ? Encouraged continued cessation. 10. Chronic anemia and thrombocytopenia ? Hemoglobin remaining stable around baseline of 8-9. Platelets stable around baseline at 120. DVT prophylaxis: Heparin subcu CODE STATUS: Full code, verified Expected disposition: SNF, medically ready for discharge on 09/10, awaiting pre- CERT Total clinical time spent by myself addressing the patient's medical issues, reviewing all the data, and collaborating with patient's care team: 35 minutes. Charges/Coding Visit Charges Inpatient E&M: 04229 Subs Hosp L2
[2024-09-10 17:42] LABS: Bedside Glucose 233 mg/dL (74-106)
[2024-09-10 21:05] VITALS: BP 126/65; PULSE 83; RESP 17; TEMP 36.7; O2SAT 96
[2024-09-10 21:45] LABS: Bedside Glucose 240 mg/dL (74-106)
[2024-09-11 03:30] VITALS: BP 106/58; PULSE 81; RESP 16; TEMP 36.8; O2SAT 97
[2024-09-11 04:03] VITALS: BMI 36.1
[2024-09-11] MEDS: Acetaminophen 325 MG Tablet 650 MG PO ×2 (04:26→22:12)
[2024-09-11] MEDS: oxyCODONE 5 MG Tablet PO ×3 (05:40→22:11)
[2024-09-11 07:18] LABS: Bedside Glucose 156 mg/dL (74-106)
[2024-09-11] MEDS: Insulin Lispro 100 UNIT/ML INSULN.PEN SC ×4 (08:27→21:36)
[2024-09-11 09:50] VITALS: O2SAT 97
[2024-09-11 09:51] VITALS: BP 119/74; PULSE 80; RESP 16; TEMP 36.6; O2SAT 99
[2024-09-11] MEDS: rifAXIMin 550 MG Tablet PO ×2 (09:52→21:37)
[2024-09-11] MEDS: Lidocaine 5% Patch 3 PATCH TOPICAL (09:52)
[2024-09-11] MEDS: 0.9% Saline Lock 10 ML Syringe IV (09:54)
[2024-09-11] MEDS: Pantoprazole Sodium 40 MG in 0.9% Normal Saline (100mL MB+) 100 ML 330 MG IV (10:01)
--- NOTE | 2024-09-11 10:36 | PN.HOSP_ITS ---
Reason for Visit Reason for Visit: Diagnoses Elevated white blood cell count, unspecified (09/05/24) Obesity, unspecified (09/05/24) Other disorders of bilirubin metabolism (09/05/24) Acidosis, unspecified (09/05/24) Obstructive sleep apnea (adult) (pediatric) (09/05/24) Other chronic pain (09/05/24) Metabolic encephalopathy (09/05/24) Other hypotension (09/05/24) Hypotension, unspecified (09/05/24) Unspecified cirrhosis of liver (09/05/24) Nonalcoholic steatohepatitis (HARRIS) (09/05/24) Hepatic encephalopathy (09/05/24) Low back pain, unspecified (09/05/24) Acute kidney failure, unspecified (09/05/24) Calculus of kidney (09/05/24) Disorder of kidney and ureter, unspecified (09/05/24) Acute cystitis with hematuria (09/05/24) Difficulty in walking, not elsewhere classified (09/05/24) Weakness (09/05/24) Subjective Subjective Saw patient at bedside this morning. Patient was laying back comfortably in bed, in no acute distress. Denied any new concerns this morning. Objective Data Objective Data Vital Signs: Vital Signs Temp Pulse Resp BP Pulse Ox O2 Del Method O2 Flow Rate 97.9 F 80 16 119/74 99 Room Air 8 09/11/24 09:51 09/11/24 09:51 09/11/24 09:51 09/11/24 09:51 09/11/24 09:51 09/11/24 09:51 09/06/24 05:00 FiO2 21 09/07/24 01:24 Oxygen Flow Rate (L/min) 8 Oxygen Delivery Method Room Air Weight: 110.9 kg Body Mass Index (BMI) 36.1 Intake & Output: Intake and Output for Last 24 Hours 09/09/24 09/10/24 09/11/24 23:59 23:59 23:59 Intake Total 640 / 640 1140 / 1140 220 / 220 Output Total 910 / 1410 1750 / 1750 100 / 100 Balance -270 / -770 -610 / -610 120 / 120 Lab / Micro Data 09/10/24 08:15 09/10/24 08:15 Labs: Laboratory Results - last 24 hr 09/10/24 10:18: Vancomycin Trough 15.7 H 09/10/24 11:39: POC Glucose 197 H 09/10/24 17:21: POC Glucose 233 H 09/10/24 21:11: POC Glucose 240 H 09/11/24 07:00: POC Glucose 156 H Micro: Microbiology 09/06/24 09:25 Blood Culture (Wb) - Left Hand Blood Culture - Final No growth in 5 days. 09/05/24 01:02 Blood Culture (Wb) - Anticubital Right Blood Culture - Final Staphylococcus epidermidis 09/04/24 22:48 Urine Catheter - Catheter Urine Culture - Final Staphylococcus epidermidis 09/05/24 00:50 Blood Culture (Wb) - Anticubital Right Bacteria Detection (PCR) - Final Staphylococcus epidermidis mecA Resistance Marker 09/05/24 00:50 Blood Culture (Wb) - Anticubital Right Blood Culture - Final Physical Exam Const alert, oriented x3 and no apparent distress Constitutional Narrative: Middle-age male, class II obesity, mildly fatigued appearing but otherwise laying back comfortably in bed, conversing normally, in no acute distress. Stable. General Appearance: cooperative and comfortable HEENT normocephalic, head/scalp atraumatic, hearing grossly normal bilaterally, nasal mucous membranes and turbinates normal and moist oral mucous membranes Eyes PERRL, EOMs intact bilaterally and conjunctivae normal Neck full ROM Chest inspection of chest normal Resp normal respiratory effort, normal air movement, no use of accessory muscles and clear to auscultation bilaterally Cardio regular rate, regular rhythm, no murmurs and peripheral pulses 2+ throughout GI normal to inspection, nondistended, normoactive bowel sounds, soft to palpation, non-tender and non-distended Back/Spine normal ROM Extremity normal to inspection and no pedal edema Skin no rashes or lesions noted Neuro no focal motor deficits Speech: speech normal Psych mental status grossly normal Assessment & Plan Assessment/Plan (1) Staghorn calculus: (2) Acute cystitis with hematuria: (3) Generalized weakness: (4) Impaired renal function: PLAN: Plan Patient is a 59-year-old male who presented [facility] ED on 09/05/2024 with worsening back pain. 1. Left-sided staghorn calculus with acute cystitis ? Urology followed. S/p cystoscopy with left ureteral stent placement on 09/05. Per urology, plan is for laser lithotripsy once infection has cleared. Completed course of IV ceftriaxone. No further needs while in patient, will need close outpatient follow-up with urology. 2. Concern for MRSE bacteremia ? ID following. Blood cultures +1/2 for MRSE. Possible contaminant but unclear. Continue IV vancomycin and plan for short course of p.o. doxycycline on discharge. 3. Acute on chronic back pain with debility ? PT/OT/case management following. Initially suspected that worsening back pain on admit was secondary to staghorn calculus, but back pain did not improve much with treatment of cystitis and stent placement. Notably had CT C/T/L-spine on 08/29 in the ED after a fall that showed no concerning findings, and repeat imaging here was again negative. Continue conservative pain management. Planning for SNF placement on discharge. Medically stable for discharge on 09/10, awaiting pre-CERT. 4. ISABEL, improving ? Nephrology following. Creatinine 5.63 on 08/29, baseline unclear prior to that. Creatinine has steadily improved with good urine output. Most recent creatinine 0.98 on 09/10. No need to monitor further BMPs while inpatient. 5. Decompensated nonalcoholic cirrhosis ? Recent admission here in late August for hepatic encephalopathy secondary to decompensated cirrhosis. Has elevated LFTs with hyperbilirubinemia but this has remained stable. Continue home Xifaxan and lactulose. 6. Chronic hypotension ? Continue home midodrine. 7. Class II obesity ? BMI 35.9 on admit. Complicates hospital course, care and prognosis. 8. Type 2 diabetes mellitus ? Continue home insulin glargine 10 units twice daily and sliding scale insulin with meals, adjust as needed. 9. History of tobacco abuse ? Encouraged continued cessation. 10. Chronic anemia and thrombocytopenia ? Hemoglobin remaining stable around baseline of 8-9. Platelets stable around baseline at 120. DVT prophylaxis: Heparin subcu CODE STATUS: Full code, verified Expected disposition: SNF, medically ready for discharge on 09/10, awaiting pre- CERT Total clinical time spent by myself addressing the patient's medical issues, reviewing all the data, and collaborating with patient's care team: 35 minutes. Charges/Coding Visit Charges Inpatient E&M: 97878 Subs Hosp L2
[2024-09-11] MEDS: Vancomycin HCl 1,500 MG in 0.9% Normal Saline (500mL Bag) 500 ML 250 MG IV (10:38)
[2024-09-11 12:13] LABS: Bedside Glucose 221 mg/dL (74-106)
[2024-09-11 15:55] VITALS: O2SAT 99
[2024-09-11 16:00] VITALS: BP 128/72; PULSE 80; RESP 16; TEMP 36.8; O2SAT 99
[2024-09-11] MEDS: Lactulose 20 GM/30 ML UDC PO ×2 (16:01→21:36)
[2024-09-11 17:38] LABS: Bedside Glucose 160 mg/dL (74-106)
[2024-09-11 21:33] VITALS: BP 122/66; PULSE 79; RESP 18; TEMP 36.8; O2SAT 98
[2024-09-11 22:06] LABS: Bedside Glucose 181 mg/dL (74-106)
--- NOTE | 2024-09-11 22:53 | NURSING ---
gave report to Beulah Torres RN
--- NOTE | 2024-09-11 23:21 | NURSING ---
This RN is taking over care for the patient at this time.
[2024-09-12] MEDS: Acetaminophen 325 MG Tablet 650 MG PO ×4 (02:22→21:09)
[2024-09-12 04:19] VITALS: BP 118/73; PULSE 78; RESP 16; TEMP 36.6; O2SAT 97
[2024-09-12 04:53] VITALS: BMI 18.8
[2024-09-12 05:08] LABS: Hematocrit 25.8 % (40-54); Hemoglobin 8.1 g/dL (13.0-16.5); Mean Corp Hgb Conc 31.4 g/dL (32-36); Mean Corpuscular Hgb 28.4 pg (27.0-32.0); Mean Corpuscular Volume 90.5 fL (80-94); Mean Platelet Vol. 11.9 fl (6.2-12.0); Platelet Count 115 K/mm3 (150-450); RBC Distribution Width CV 19.7 % (11.6-14.6); RBC Distribution Width SD 63.5 fl (35.1-43.9); Red Blood Count 2.85 M/mm3 (4.6-6.2); White Blood Count 7.4 K/mm3 (4.4-11.0)
[2024-09-12 05:18] LABS: Anion Gap 7 (5-15); BUN 7 mg/dL (7-18); BUN/Creat Ratio 7.6 RATIO (10-20); Calcium,Total 8.1 mg/dL (8.5-10.1); Chloride 109 mmol/L (98-107); Creatinine, Serum 0.92 mg/dL (0.70-1.30); EST Glomerular Filtration Rate 89 mL/min (>60); Est Glom Filt Rate - Afr Amer 108 mL/min (>60); Glucose 149 mg/dL (74-106); Potassium 3.4 mmol/L (3.5-5.1); Sodium Level 136 mmol/L (136-145)
[2024-09-12 05:19] LABS: Scan Indicated on CBC? Y/N NO
[2024-09-12] MEDS: Lactulose 20 GM/30 ML UDC PO ×3 (05:56→21:09)
[2024-09-12] MEDS: oxyCODONE 5 MG Tablet PO ×3 (05:56→18:05)
[2024-09-12 06:48] LABS: Bedside Glucose 129 mg/dL (74-106)
[2024-09-12 09:22] VITALS: BP 141/75; PULSE 86; RESP 16; TEMP 36.5; O2SAT 97
[2024-09-12] MEDS: rifAXIMin 550 MG Tablet PO ×2 (09:33→21:09)
[2024-09-12] MEDS: Lidocaine 5% Patch 3 PATCH TOPICAL (09:33)
[2024-09-12] MEDS: Doxycycline 100 MG CAPSULE PO ×2 (09:43→21:09)
[2024-09-12] MEDS: Pantoprazole Sodium 40 MG Tablet PO (09:43)
[2024-09-12] MEDS: Potassium Chloride Oral Tablet 20 MEQ 40 MEQ PO (09:44)
--- NOTE | 2024-09-12 10:39 | PCM.PN.HOSP ---
Reason for Visit Reason for Visit: Diagnoses Elevated white blood cell count, unspecified (09/05/24) Obesity, unspecified (09/05/24) Other disorders of bilirubin metabolism (09/05/24) Acidosis, unspecified (09/05/24) Obstructive sleep apnea (adult) (pediatric) (09/05/24) Other chronic pain (09/05/24) Metabolic encephalopathy (09/05/24) Other hypotension (09/05/24) Hypotension, unspecified (09/05/24) Unspecified cirrhosis of liver (09/05/24) Nonalcoholic steatohepatitis (HARRIS) (09/05/24) Hepatic encephalopathy (09/05/24) Low back pain, unspecified (09/05/24) Acute kidney failure, unspecified (09/05/24) Calculus of kidney (09/05/24) Disorder of kidney and ureter, unspecified (09/05/24) Acute cystitis with hematuria (09/05/24) Difficulty in walking, not elsewhere classified (09/05/24) Weakness (09/05/24) Subjective Subjective Saw patient at bedside this morning. Patient continues to have low back pain, similar to previous days. No other new concerns today. Objective Data Objective Data Vital Signs: Vital Signs Temp Pulse Resp BP Pulse Ox O2 Del Method O2 Flow Rate 97.7 F L 86 16 141/75 H 97 Room Air 8 09/12/24 09:22 09/12/24 09:22 09/12/24 09:22 09/12/24 09:22 09/12/24 09:22 09/12/24 09:22 09/06/24 05:00 FiO2 21 09/07/24 01:24 Oxygen Flow Rate (L/min) 8 Oxygen Delivery Method Room Air Weight: 58 kg Body Mass Index (BMI) 18.8 Intake & Output: Intake and Output for Last 24 Hours 09/10/24 09/11/24 09/12/24 23:59 23:59 23:59 Intake Total 1140 / 1140 1100 / 1100 Output Total 1750 / 1750 700 / 700 100 / 100 Balance -610 / -610 400 / 400 -100 / -100 Lab / Micro Data 09/12/24 03:49 09/12/24 03:49 Labs: Laboratory Results - last 24 hr 09/11/24 11:55: POC Glucose 221 H 09/11/24 17:21: POC Glucose 160 H 09/11/24 21:35: POC Glucose 181 H 09/12/24 03:49: WBC 7.4, RBC 2.85 L, Hgb 8.1 L, Hct 25.8 L, MCV 90.5, MCH 28.4, MCHC 31.4 L D, RDW Std Deviation 63.5 H, RDW Coeff of Francis 19.7 H, Plt Count 115 L, MPV 11.9, Sodium 136, Potassium 3.4 L, Chloride 109 H, Carbon Dioxide 20.0 L, Anion Gap 7, BUN 7, Creatinine 0.92, Estim Creat Clear Calc 71.80, Est GFR (MDRD) Af Amer 108, Est GFR (MDRD) Non-Af 89, BUN/Creatinine Ratio 7.6 L, Glucose 149 H, Calcium 8.1 L 09/12/24 06:01: POC Glucose 129 H Micro: Microbiology 09/06/24 09:25 Blood Culture (Wb) - Left Hand Blood Culture - Final No growth in 5 days. 09/05/24 01:02 Blood Culture (Wb) - Anticubital Right Blood Culture - Final Staphylococcus epidermidis 09/04/24 22:48 Urine Catheter - Catheter Urine Culture - Final Staphylococcus epidermidis 09/05/24 00:50 Blood Culture (Wb) - Anticubital Right Bacteria Detection (PCR) - Final Staphylococcus epidermidis mecA Resistance Marker 09/05/24 00:50 Blood Culture (Wb) - Anticubital Right Blood Culture - Final Physical Exam Const alert, oriented x3 and no apparent distress Constitutional Narrative: Middle-age male, class II obesity, mildly fatigued appearing but otherwise laying back comfortably in bed, conversing normally, in no acute distress. Stable. General Appearance: cooperative and comfortable HEENT normocephalic, head/scalp atraumatic, hearing grossly normal bilaterally, nasal mucous membranes and turbinates normal and moist oral mucous membranes Eyes PERRL, EOMs intact bilaterally and conjunctivae normal Neck full ROM Chest inspection of chest normal Resp normal respiratory effort, normal air movement, no use of accessory muscles and clear to auscultation bilaterally Cardio regular rate, regular rhythm, no murmurs and peripheral pulses 2+ throughout GI normal to inspection, nondistended, normoactive bowel sounds, soft to palpation, non-tender and non-distended Back/Spine normal ROM Extremity normal to inspection and no pedal edema Skin no rashes or lesions noted Neuro no focal motor deficits Speech: speech normal Psych mental status grossly normal Assessment & Plan Assessment/Plan (1) Staghorn calculus: (2) Acute cystitis with hematuria: (3) Generalized weakness: (4) Impaired renal function: PLAN: Plan Patient is a 59-year-old male who presented [facility] ED on 09/05/2024 with worsening back pain. 1. Left-sided staghorn calculus with acute cystitis ? Urology followed. S/p cystoscopy with left ureteral stent placement on 09/05. Per urology, plan is for laser lithotripsy once infection has cleared. Completed course of IV ceftriaxone. No further needs while in patient, will need close outpatient follow-up with urology. 2. Concern for MRSE bacteremia ? ID following. Blood cultures +08/05 for MRSE. Possible contaminant but unclear. Treated with IV vancomycin through 09/11, then transition to p.o. doxycycline. Follow-up with ID on 09/13 to confirm length of course of p.o. doxycycline. 3. Acute on chronic back pain with debility ? PT/OT/case management following. Initially suspected that worsening back pain on admit was secondary to staghorn calculus, but back pain did not improve much with treatment of cystitis and stent placement. Notably had CT C/T/L-spine on 08/29 in the ED after a fall that showed no concerning findings, and repeat imaging here was again negative. Continue conservative pain management. Planning for SNF placement on discharge. Medically stable for discharge on 09/10, awaiting pre-CERT. 4. ISABEL, improving ? Nephrology following. Creatinine 5.63 on 08/29, baseline unclear prior to that. Creatinine has steadily improved with good urine output. Most recent creatinine 0.98 on 09/10. No need to monitor further BMPs while inpatient. 5. Decompensated nonalcoholic cirrhosis ? Recent admission here in late August for hepatic encephalopathy secondary to decompensated cirrhosis. Has elevated LFTs with hyperbilirubinemia but this has remained stable. Continue home Xifaxan and lactulose. 6. Chronic hypotension ? Continue home midodrine. 7. Class II obesity ? BMI 35.9 on admit. Complicates hospital course, care and prognosis. 8. Type 2 diabetes mellitus ? Continue home insulin glargine 10 units twice daily and sliding scale insulin with meals, adjust as needed. 9. History of tobacco abuse ? Encouraged continued cessation. 10. Chronic anemia and thrombocytopenia ? Hemoglobin remaining stable around baseline of 8-9. Platelets stable around baseline at 120. DVT prophylaxis: Heparin subcu CODE STATUS: Full code, verified Expected disposition: SNF, medically ready for discharge on 09/10, awaiting pre-CERT Total clinical time spent by myself addressing the patient's medical issues, reviewing all the data, and collaborating with patient's care team: 35 minutes. Charges/Coding Visit Charges Inpatient E&M: 50766 Subs Hosp L2
[2024-09-12 12:03] VITALS: BP 124/74; PULSE 92; RESP 18; TEMP 36.6; O2SAT 97
[2024-09-12] MEDS: Insulin Lispro 100 UNIT/ML INSULN.PEN SC ×3 (12:17→21:08)
[2024-09-12 12:39] LABS: Bedside Glucose 195 mg/dL (74-106)
[2024-09-12 17:44] LABS: Bedside Glucose 182 mg/dL (74-106)
[2024-09-12 18:02] VITALS: BP 123/71; PULSE 83; RESP 16; O2SAT 99
[2024-09-12 20:00] VITALS: BP 130/74; PULSE 88; RESP 18; TEMP 37.1; O2SAT 100
[2024-09-12 21:44] LABS: Bedside Glucose 230 mg/dL (74-106)
[2024-09-13 02:00] VITALS: BP 131/78; PULSE 84; RESP 18; TEMP 37.2; O2SAT 99
[2024-09-13] MEDS: Acetaminophen 325 MG Tablet 650 MG PO ×2 (03:08→09:32)
[2024-09-13] MEDS: oxyCODONE 5 MG Tablet PO ×3 (03:08→17:22)
[2024-09-13 03:58] VITALS: BMI 36.8
[2024-09-13] MEDS: Lactulose 20 GM/30 ML UDC PO ×3 (06:36→22:19)
[2024-09-13 06:55] LABS: Bedside Glucose 146 mg/dL (74-106)
[2024-09-13 08:23] VITALS: BP 127/82; PULSE 90; RESP 14; TEMP 37.1; O2SAT 100
--- NOTE | 2024-09-13 09:27 | PN.HOSP_ITS ---
Reason for Visit Reason for Visit: Diagnoses Elevated white blood cell count, unspecified (09/05/24) Obesity, unspecified (09/05/24) Other disorders of bilirubin metabolism (09/05/24) Acidosis, unspecified (09/05/24) Obstructive sleep apnea (adult) (pediatric) (09/05/24) Other chronic pain (09/05/24) Metabolic encephalopathy (09/05/24) Other hypotension (09/05/24) Hypotension, unspecified (09/05/24) Unspecified cirrhosis of liver (09/05/24) Nonalcoholic steatohepatitis (HARRIS) (09/05/24) Hepatic encephalopathy (09/05/24) Low back pain, unspecified (09/05/24) Acute kidney failure, unspecified (09/05/24) Calculus of kidney (09/05/24) Disorder of kidney and ureter, unspecified (09/05/24) Acute cystitis with hematuria (09/05/24) Difficulty in walking, not elsewhere classified (09/05/24) Weakness (09/05/24) Subjective Subjective Still with severe low back pain and cannot get comfortable. Objective Data Objective Data Vital Signs: Vital Signs Temp Pulse Resp BP Pulse Ox O2 Del Method O2 Flow Rate 37.1 C 90 14 127/82 H 100 Room Air 8 09/13/24 08:23 09/13/24 08:23 09/13/24 08:23 09/13/24 08:23 09/13/24 08:23 09/13/24 08:26 09/06/24 05:00 FiO2 21 09/07/24 01:24 Oxygen Flow Rate (L/min) 8 Oxygen Delivery Method Room Air Weight: 113.1 kg Body Mass Index (BMI) 36.8 Intake & Output: Intake and Output for Last 24 Hours 09/11/24 09/12/24 09/13/24 23:59 23:59 23:59 Intake Total 1100 / 1100 750 / 870 220 / 220 Output Total 700 / 700 100 / 225 275 / 275 Balance 400 / 400 650 / 645 -55 / -55 Lab / Micro Data 09/12/24 03:49 09/12/24 03:49 Labs: Laboratory Results - last 24 hr 09/12/24 12:16: POC Glucose 195 H 09/12/24 17:25: POC Glucose 182 H 09/12/24 21:07: POC Glucose 230 H 09/13/24 06:36: POC Glucose 146 H Micro: Microbiology 09/06/24 09:25 Blood Culture (Wb) - Left Hand Blood Culture - Final No growth in 5 days. 09/05/24 01:02 Blood Culture (Wb) - Anticubital Right Blood Culture - Final Staphylococcus epidermidis 09/04/24 22:48 Urine Catheter - Catheter Urine Culture - Final Staphylococcus epidermidis 09/05/24 00:50 Blood Culture (Wb) - Anticubital Right Bacteria Detection (PCR) - Final Staphylococcus epidermidis mecA Resistance Marker 09/05/24 00:50 Blood Culture (Wb) - Anticubital Right Blood Culture - Final Physical Exam Const alert and no apparent distress Constitutional Narrative: appeared comfortable when I first walked in. bilateral lower paraspinal muscle tenderness. HEENT head/scalp atraumatic and moist oral mucous membranes Resp normal respiratory effort, no retractions, no use of accessory muscles and clear to auscultation bilaterally Cardio regular rate, regular rhythm, S1 normal heart sound and S2 normal heart sound GI normal to inspection, nondistended, normoactive bowel sounds, soft to palpation, non-tender and non-distended Extremity normal to inspection and no clubbing, cyanosis or edema Assessment & Plan Assessment/Plan (1) Staghorn calculus: (2) Acute cystitis with hematuria: (3) Generalized weakness: (4) Impaired renal function: PLAN: Plan Left-sided staghorn calculus with acute cystitis * Urology followed. S/p cystoscopy with left ureteral stent placement on 09/05. Per urology, plan is for laser lithotripsy once infection has cleared. Completed course of IV ceftriaxone. No further needs while in patient, will need close outpatient follow-up with urology. Concern for MRSE bacteremia * ID following. Blood cultures +08/05 for MRSE. Possible contaminant but unclear. Treated with IV vancomycin through 09/11, then transition to p.o. doxycycline. Follow-up with ID on 09/13 to confirm length of course of p.o. doxycycline. Acute on chronic back pain with debility * PT/OT/case management following. Initially suspected that worsening back pain on admit was secondary to staghorn calculus, but back pain did not improve much with treatment of cystitis and stent placement. Notably had CT C/T/L- spine on 08/29 in the ED after a fall that showed no concerning findings, and repeat imaging here was again negative. Continue conservative pain management. Planning for SNF placement on discharge. Medically stable for discharge on 09/10, awaiting pre-CERT. * add cyclobenzaprine for what appears paraspinal muscle tenderness. ISABEL, improving * Nephrology following. Creatinine 5.63 on 08/29, baseline unclear prior to that. Creatinine has steadily improved with good urine output. Most recent creatinine 0.98 on 09/10. No need to monitor further BMPs while inpatient. Chronic conditions: * Decompensated nonalcoholic cirrhosis? Recent admission here in late August for hepatic encephalopathy secondary to decompensated cirrhosis. Has elevated LFTs with hyperbilirubinemia but this has remained stable. Continue home Xifaxan and lactulose. * Chronic hypotension? Continue home midodrine. * Class II obesity? BMI 35.9 on admit. Complicates hospital course, care and prognosis. * Type 2 diabetes mellitus? Continue home insulin glargine 10 units twice daily and sliding scale insulin with meals, adjust as needed. * History of tobacco abuse? Encouraged continued cessation. * Chronic anemia and thrombocytopenia? Hemoglobin remaining stable around baseline of 8-9. Platelets stable around baseline at 120. DVT prophylaxis: Heparin subcu CODE STATUS: Full code, verified Expected disposition: SNF, medically ready for discharge on 09/10, awaiting pre- CERT Charges/Coding Visit Charges Inpatient E&M: 77732 Subs Hosp L2
[2024-09-13] MEDS: Doxycycline 100 MG CAPSULE PO ×2 (09:32→22:19)
[2024-09-13] MEDS: rifAXIMin 550 MG Tablet PO ×2 (09:33→22:58)
[2024-09-13] MEDS: Pantoprazole Sodium 40 MG Tablet PO (09:33)
--- NOTE | 2024-09-13 10:55 | PCM.PN.REN ---
Subjective Subjective Resting in bed. Patient states he ambulated with therapy this morning. No overnight events. Objective Data Objective Data Vital Signs: Vital Signs Temp Pulse Resp BP Pulse Ox O2 Del Method O2 Flow Rate 97.8 F 79 16 87/68 L 100 Room Air 8 09/13/24 09:49 09/13/24 09:49 09/13/24 09:49 09/13/24 09:49 09/13/24 09:49 09/13/24 09:49 09/06/24 05:00 FiO2 21 09/07/24 01:24 Oxygen Flow Rate (L/min) 8 Oxygen Delivery Method Room Air Weight: 113.1 kg Body Mass Index (BMI) 36.8 Intake & Output: Intake and Output for Last 24 Hours 09/11/24 09/12/24 09/13/24 23:59 23:59 23:59 Intake Total 1100 / 1100 750 / 870 220 / 220 Output Total 700 / 700 100 / 225 275 / 275 Balance 400 / 400 650 / 645 -55 / -55 Lab / Micro Data 09/12/24 03:49 09/12/24 03:49 Labs: Laboratory Results - last 24 hr 09/12/24 12:16: POC Glucose 195 H 09/12/24 17:25: POC Glucose 182 H 09/12/24 21:07: POC Glucose 230 H 09/13/24 06:36: POC Glucose 146 H Micro: Microbiology 09/06/24 09:25 Blood Culture (Wb) - Left Hand Blood Culture - Final No growth in 5 days. 09/05/24 01:02 Blood Culture (Wb) - Anticubital Right Blood Culture - Final Staphylococcus epidermidis 09/04/24 22:48 Urine Catheter - Catheter Urine Culture - Final Staphylococcus epidermidis 09/05/24 00:50 Blood Culture (Wb) - Anticubital Right Bacteria Detection (PCR) - Final Staphylococcus epidermidis mecA Resistance Marker 09/05/24 00:50 Blood Culture (Wb) - Anticubital Right Blood Culture - Final Physical Exam Narrative Alert and oriented, no apparent distress S1, S2, RRR Lungs sound clear anteriorly and posteriorly. 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 ISABEL felt to be prerenal secondary to sepsis, hypotension with poor renal perfusion (patient was on IV pressors) and with IV fluids alone as well as a dose of albumin renal function improved. Patient has never required any renal replacement therapy. Renal function was improving by time of hospital discharge. Baseline serum creatinine unknown. Patient admitted on 09/05/2024 to ICU for sepsis protocol for suspected sepsis/acute cystitis, abdominal pain, back pain, left staghorn calculus underwent cystoscopy and left stent placement per Dr. Rascon. SCr 1.82mg/dL on 09/04. Previous admission serum creatinine peaked 5.63 on August 29 (this was admission date). Serum creatinine has been under 1 for past few days. No labs today. Good urine output. Overall renal function stable, ISABEL resolved. Discharge planning in progress. Nephrology will sign off.
[2024-09-13] MEDS: Insulin Lispro 100 UNIT/ML INSULN.PEN SC ×3 (11:37→22:20)
[2024-09-13 12:21] LABS: Bedside Glucose 185 mg/dL (74-106)
--- NOTE | 2024-09-13 13:58 | CCN.REFER ---
REFERRAL TO [facility] DISCONTINUED DUE TO PATIENT'S DC PLANS CHANGED TO [facility].
[2024-09-13 14:47] VITALS: BP 110/63; PULSE 89; RESP 16; TEMP 36.8; O2SAT 100
[2024-09-13 17:37] LABS: Bedside Glucose 191 mg/dL (74-106)
[2024-09-13 22:15] VITALS: BP 126/76; PULSE 86; RESP 15; TEMP 36.4; O2SAT 97
[2024-09-13] MEDS: cycloBENZAPRine HCl 5 MG TABLET PO (22:19)
[2024-09-13] MEDS: Acetaminophen 500 MG Tablet 1000 MG PO (22:20)
[2024-09-14 00:52] LABS: Bedside Glucose 191 mg/dL (74-106)
[2024-09-14] MEDS: oxyCODONE 5 MG Tablet PO ×3 (02:17→20:06)
[2024-09-14 03:00] VITALS: BP 135/76; PULSE 90; RESP 16; TEMP 36.7; O2SAT 98
[2024-09-14 04:07] VITALS: BMI 36.7
[2024-09-14] MEDS: Acetaminophen 500 MG Tablet 1000 MG PO ×3 (06:51→20:28)
[2024-09-14] MEDS: Lactulose 20 GM/30 ML UDC PO ×3 (06:51→20:29)
[2024-09-14] MEDS: cycloBENZAPRine HCl 5 MG TABLET PO ×3 (06:51→20:29)
[2024-09-14 07:12] LABS: Bedside Glucose 118 mg/dL (74-106)
--- NOTE | 2024-09-14 07:39 | PCM.PN.GU ---
Subjective Subjective 59-year-old male status post stent placement for staghorn calculus, patient's insurance unfortunately is out of network for me I cannot get insurance authorization to proceed with elective percutaneous removal of his stone told the patient he will need to get care through another urologist who is within his insurance network he had had emergency stent placement for infection and currently stable. Objective Data Objective Data Vital Signs: Vital Signs Temp Pulse Resp BP Pulse Ox O2 Del Method O2 Flow Rate 98.0 F 90 16 135/76 H 98 Room Air 8 09/14/24 03:00 09/14/24 03:00 09/14/24 03:00 09/14/24 03:00 09/14/24 03:00 09/14/24 03:00 09/06/24 05:00 FiO2 21 09/07/24 01:24 Oxygen Flow Rate (L/min) 8 Oxygen Delivery Method Room Air Weight: 112.8 kg Body Mass Index (BMI) 36.7 Intake & Output: Intake and Output for Last 24 Hours 09/12/24 09/13/24 09/14/24 23:59 23:59 23:59 Intake Total 750 / 870 220 / 220 Output Total 100 / 225 550 / 550 Balance 650 / 645 -330 / -330 Lab / Micro Data 09/12/24 03:49 09/12/24 03:49 Labs: Laboratory Results - last 24 hr 09/13/24 11:36: POC Glucose 185 H 09/13/24 17:17: POC Glucose 191 H 09/13/24 22:18: POC Glucose 191 H 09/14/24 06:51: POC Glucose 118 H Micro: Microbiology 09/06/24 09:25 Blood Culture (Wb) - Left Hand Blood Culture - Final No growth in 5 days. 09/05/24 01:02 Blood Culture (Wb) - Anticubital Right Blood Culture - Final Staphylococcus epidermidis 09/04/24 22:48 Urine Catheter - Catheter Urine Culture - Final Staphylococcus epidermidis 09/05/24 00:50 Blood Culture (Wb) - Anticubital Right Bacteria Detection (PCR) - Final Staphylococcus epidermidis mecA Resistance Marker 09/05/24 00:50 Blood Culture (Wb) - Anticubital Right Blood Culture - Final
[2024-09-14] MEDS: Pantoprazole Sodium 40 MG Tablet PO (08:24)
[2024-09-14] MEDS: rifAXIMin 550 MG Tablet PO ×2 (08:25→20:29)
[2024-09-14] MEDS: Doxycycline 100 MG CAPSULE PO ×2 (08:25→20:29)
[2024-09-14 09:11] VITALS: BP 140/69; PULSE 92; RESP 17; TEMP 36.6; O2SAT 100
--- NOTE | 2024-09-14 09:22 | CASEMGMT ---
Updates sent to CC. Judith remains pending. India Platt DC Planning Asst.
--- NOTE | 2024-09-14 09:57 | PN.HOSP_ITS ---
Reason for Visit Reason for Visit: Diagnoses Elevated white blood cell count, unspecified (09/05/24) Obesity, unspecified (09/05/24) Other disorders of bilirubin metabolism (09/05/24) Acidosis, unspecified (09/05/24) Obstructive sleep apnea (adult) (pediatric) (09/05/24) Other chronic pain (09/05/24) Metabolic encephalopathy (09/05/24) Other hypotension (09/05/24) Hypotension, unspecified (09/05/24) Unspecified cirrhosis of liver (09/05/24) Nonalcoholic steatohepatitis (HARRIS) (09/05/24) Hepatic encephalopathy (09/05/24) Low back pain, unspecified (09/05/24) Acute kidney failure, unspecified (09/05/24) Calculus of kidney (09/05/24) Disorder of kidney and ureter, unspecified (09/05/24) Acute cystitis with hematuria (09/05/24) Difficulty in walking, not elsewhere classified (09/05/24) Weakness (09/05/24) Subjective Subjective Still with severe back pain, then quickly dozes off. Objective Data Objective Data Vital Signs: Vital Signs Temp Pulse Resp BP Pulse Ox O2 Del Method O2 Flow Rate 36.6 C 92 17 140/69 H 100 Room Air 8 09/14/24 09:11 09/14/24 09:11 09/14/24 09:11 09/14/24 09:11 09/14/24 09:11 09/14/24 09:12 09/06/24 05:00 FiO2 21 09/07/24 01:24 Oxygen Flow Rate (L/min) 8 Oxygen Delivery Method Room Air Weight: 112.8 kg Body Mass Index (BMI) 36.7 Intake & Output: Intake and Output for Last 24 Hours 09/12/24 09/13/24 09/14/24 23:59 23:59 23:59 Intake Total 750 / 870 220 / 220 Output Total 100 / 225 550 / 550 Balance 650 / 645 -330 / -330 Lab / Micro Data 09/12/24 03:49 09/12/24 03:49 Labs: Laboratory Results - last 24 hr 09/13/24 11:36: POC Glucose 185 H 09/13/24 17:17: POC Glucose 191 H 09/13/24 22:18: POC Glucose 191 H 09/14/24 06:51: POC Glucose 118 H Micro: Microbiology 09/06/24 09:25 Blood Culture (Wb) - Left Hand Blood Culture - Final No growth in 5 days. 09/05/24 01:02 Blood Culture (Wb) - Anticubital Right Blood Culture - Final Staphylococcus epidermidis 09/04/24 22:48 Urine Catheter - Catheter Urine Culture - Final Staphylococcus epidermidis 09/05/24 00:50 Blood Culture (Wb) - Anticubital Right Bacteria Detection (PCR) - Final Staphylococcus epidermidis mecA Resistance Marker 09/05/24 00:50 Blood Culture (Wb) - Anticubital Right Blood Culture - Final Physical Exam Const Constitutional Narrative: sleeping. awakens slowly, complains of severe back pain, then quickly dozes off. HEENT head/scalp atraumatic and moist oral mucous membranes Resp normal respiratory effort and no retractions Neuro Sensorium / Orientation: awake and alert Psych affect normal Assessment & Plan Assessment/Plan (1) Staghorn calculus: (2) Acute cystitis with hematuria: (3) Generalized weakness: (4) Impaired renal function: PLAN: Plan Left-sided staghorn calculus with acute cystitis * Urology followed. S/p cystoscopy with left ureteral stent placement on 09/05. Per urology, plan is for laser lithotripsy once infection has cleared. Completed course of IV ceftriaxone. No further needs while in patient, will need close outpatient follow-up with urology. Concern for MRSE bacteremia * ID following. Blood cultures +08/05 for MRSE. Possible contaminant but unclear. Treated with IV vancomycin through 09/11, then transition to p.o. doxycycline. Acute on chronic back pain with debility * PT/OT/case management following. Initially suspected that worsening back pain on admit was secondary to staghorn calculus, but back pain did not improve much with treatment of cystitis and stent placement. Notably had CT C/T/L- spine on 08/29 in the ED after a fall that showed no concerning findings, and repeat imaging here was again negative. Continue conservative pain management. Planning for SNF placement on discharge. Medically stable for discharge on 09/10, awaiting pre-CERT. * add cyclobenzaprine for what appears paraspinal muscle tenderness. ISABEL, improving * Nephrology following. Creatinine 5.63 on 1/26, baseline unclear prior to that. Creatinine has steadily improved with good urine output. Most recent creatinine 0.98 on 09/10. No need to monitor further BMPs while inpatient. Chronic conditions: * Decompensated nonalcoholic cirrhosis? Recent admission here in late August for hepatic encephalopathy secondary to decompensated cirrhosis. Has elevated LFTs with hyperbilirubinemia but this has remained stable. Continue home Xifaxan and lactulose. * Chronic hypotension? Continue home midodrine. * Class II obesity? BMI 35.9 on admit. Complicates hospital course, care and prognosis. * Type 2 diabetes mellitus? Continue home insulin glargine 10 units twice daily and sliding scale insulin with meals, adjust as needed. * History of tobacco abuse? Encouraged continued cessation. * Chronic anemia and thrombocytopenia? Hemoglobin remaining stable around baseline of 8-9. Platelets stable around baseline at 120. DVT prophylaxis: Heparin subcu CODE STATUS: Full code, verified Expected disposition: SNF, medically ready for discharge on 09/10, awaiting pre- CERT Charges/Coding Visit Charges Inpatient E&M: 36447 Subs Hosp L1
[2024-09-14] MEDS: Insulin Lispro 100 UNIT/ML INSULN.PEN SC ×2 (11:04→17:05)
[2024-09-14 11:25] LABS: Bedside Glucose 176 mg/dL (74-106)
[2024-09-14 14:25] VITALS: BP 131/75; PULSE 88; RESP 16; TEMP 36.8; O2SAT 100
[2024-09-14 17:24] LABS: Bedside Glucose 168 mg/dL (74-106)
--- NOTE | 2024-09-14 17:35 | TREXTCAR_ITS ---
Diet Diet Order/Speech Therapy: 09/10/24 14:14 Diet: Consistent Carb - Calorie Controlled Dietary Modifications:: Sodium Restricted Type of Dietary Supplement:: 4 oz Glucerna Shake 3x/d How many daily calories?: 1800 calorie Routine Orders/Code Status Code Status: Full Code DC O2, CPAP, BIPAP needs Home O2 Discharge instructions: No Therapies Weight Bearing: Full weight bearing Physical Therapy: Eval and Treat Occupational Therapy: Eval and Treat Problem/Diagnosis (1) Staghorn calculus: Status: Acute Code(s): N20.0 - Calculus of kidney (2) Acute cystitis with hematuria: Status: Acute Code(s): N30.01 - Acute cystitis with hematuria (3) Generalized weakness: Status: Acute Code(s): R53.1 - Weakness (4) Impaired renal function: Status: Acute Code(s): N28.9 - Disorder of kidney and ureter, unspecified Plan Left-sided staghorn calculus with acute cystitis * Urology followed. S/p cystoscopy with left ureteral stent placement on 09/05. Per urology, plan is for laser lithotripsy once infection has cleared. Completed course of IV ceftriaxone. No further needs while in patient, will need close outpatient follow-up with urology. Concern for MRSE bacteremia * ID following. Blood cultures +08/05 for MRSE. Possible contaminant but unclear. Treated with IV vancomycin through 09/11, then transition to p.o. doxycycline. Acute on chronic back pain with debility * PT/OT/case management following. Initially suspected that worsening back pain on admit was secondary to staghorn calculus, but back pain did not improve much with treatment of cystitis and stent placement. Notably had CT C/T/L- spine on 08/29 in the ED after a fall that showed no concerning findings, and repeat imaging here was again negative. Continue conservative pain management. Planning for SNF placement on discharge. Medically stable for discharge on 09/10, awaiting pre-CERT. * add cyclobenzaprine for what appears paraspinal muscle tenderness. ISABEL, improving * Nephrology following. Creatinine 5.63 on 08/29, baseline unclear prior to that. Creatinine has steadily improved with good urine output. Most recent creatinine 0.98 on 09/10. No need to monitor further BMPs while inpatient. Chronic conditions: * Decompensated nonalcoholic cirrhosis? Recent admission here in late August for hepatic encephalopathy secondary to decompensated cirrhosis. Has elevated LFTs with hyperbilirubinemia but this has remained stable. Continue home Xifaxan and lactulose. * Chronic hypotension? Continue home midodrine. * Class II obesity? BMI 35.9 on admit. Complicates hospital course, care and prognosis. * Type 2 diabetes mellitus? Continue home insulin glargine 10 units twice daily and sliding scale insulin with meals, adjust as needed. * History of tobacco abuse? Encouraged continued cessation. * Chronic anemia and thrombocytopenia? Hemoglobin remaining stable around baseline of 8-9. Platelets stable around baseline at 120. DVT prophylaxis: Heparin subcu CODE STATUS: Full code, verified Expected disposition: SNF, medically ready for discharge on 09/10, awaiting pre- CERT Allergies/Procedures Done in Hospital Allergies No Known Allergies Allergy (Verified 09/04/24 21:19) Type of Care/Length of Stay Estimated LOS: Convalescent Care Less Than 30 days Type of Care Needed: Skilled Rehab Potential: Fair Prognosis: Good Additional Orders/Day of Discharge Day of Discharge: 09/14/24 Dietary and Speech Recommendations Dietitian Recommendations/Changes: Adjust diet to 1800 santiago Consistent CHO/Sodium restricted to manage medical conditions Continue 4 oz glucerna shake TID w/ meals for increased nutrition if consumed. Discharge Plan Admission Admit Date/Time: 09/05/24 01:46 Attending Provider: Boone Izquierdo Primary Care Provider: Care Physician,No Primary Consulting Providers: Hill Caro; Anurag Irene; Jae Ash; Thai Thurston; Josefina Khan; Foster Rascon Discharge Orders/Prescriptions Prescriptions: New acetaminophen 500 mg Tablet 1,000 mg PO Q8 Qty: 0 0RF doxycycline monohydrate 100 mg Capsule 100 mg PO BID Qty: 4 0RF insulin lispro [Humalog KwikPen Insulin] 100 unit/mL Insulin Pen See Protocol subcut ACHS Qty: 0 0RF Protocol: 4. Sliding Scale Insulin High-Med Dosing Condition: 150-199 mg/dl = 2 units Condition: 200-259 mg/dl = 4 units Condition: 260-324 mg/dl = 6 units Condition: 325-374 mg/dl = 8 units Condition: 375-409 mg/dl = 10 units Condition: 410-449 mg/dl = 11 units Condition: Greater than 449 call physician Protocol Text: Suggested for: - Patients on Total Daily Insulin Dose of 56-80 units - Patient who are known to be insulin resistant or septic HIGH MEDIUM DOSING ALGORITHM cyclobenzaprine 5 mg Tablet 5 mg PO TID PRN (Reason: muscle spasm) Qty: 0 0RF Continued lidocaine 5 % Adhesive Patch,Medicated 3 patch topical DAILY Qty: 90 0RF Protocol: *Topical Application Instructions APPLICATION INSTRUCTIONS: to affected region Rx Instructions: Apply to low back daily for pain lactulose 10 gram/15 mL Solution 20 g PO Q8 Qty: 1419 0RF Patient Comments: reports he has not taken it because it was across the room from him (09/04/2024) midodrine 5 mg Tablet 10 mg PO TIDCM Qty: 90 0RF pantoprazole 40 mg Tablet,Delayed Release (Dr/Ec) 40 mg PO BID Qty: 60 0RF Xifaxan 550 mg Tablet 550 mg PO BID Qty: 60 0RF Discontinued hydrocodone-acetaminophen 5-325 mg Tablet 1 tab PO Q4H PRN PRN (Reason: Pain Score 1-10) 7 Days Qty: 30 0RF Patient Comments: reports he has not taken it because it was across the room from him (09/04/2024) insulin glargine-yfgn 100 unit/mL (3 mL) Insulin Pen 10 unit subcut BID Qty: 5 0RF Patient Comments: reports he has not taken it because it was across the room from him (09/04/2024) Referrals / Follow Up: Foster Rascon MD [Med Staff - Active Staff] - Within 1 Month Care Physician,No Primary [Primary Care Provider] - Disposition Disposition (needs filled in before D/C Order can be placed): [facility]
--- NOTE | 2024-09-14 17:41 | DS.PCM_ITS ---
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 EMERGENT Consult: No Notified: Yes Date Notified: 09/05/24 Time Notified: 07:42 Method of Notification: Answering Service Consult: Urology Routine Consulting Provider: Foster Rascon Reason for Consult: Sepsis with Staghorn Calculus and ISABEL. EMERGENT Consult: No Notified: Yes Date Notified: 09/05/24 Time Notified: 01:56 Method of Notification: ED Physician Initiated 09/06/24 09:06 Consult: Infectious Disease Routine Consulting Provider: Thai Thurston Reason for Consult: MRSE, in blood, LEFT Staghorn calculus EMERGENT Consult: No Notified: Yes Date Notified: 09/06/24 Time Notified: 09:06 Method of Notification: Text 09/06/24 09:11 Consult: Nephrology Routine Consulting Provider: Josefina Khan Reason for Consult: ISABEL? obstructive left staghorn calculi, cr high EMERGENT Consult: No Notified: Yes Date Notified: 09/06/24 Time Notified: 09:11 Method of Notification: Text Reason For Visit: SEPSIS WITH STAGHORN CALCULI Diagnosis Discharge Diagnosis (1) Staghorn calculus: Status: Acute Code(s): N20.0 - Calculus of kidney (2) Acute cystitis with hematuria: Status: Acute Code(s): N30.01 - Acute cystitis with hematuria (3) Generalized weakness: Status: Acute Code(s): R53.1 - Weakness (4) Impaired renal function: Status: Acute Code(s): N28.9 - Disorder of kidney and ureter, unspecified Plan Left-sided staghorn calculus with acute cystitis * Urology followed. S/p cystoscopy with left ureteral stent placement on 09/05. Per urology, plan is for laser lithotripsy once infection has cleared. Completed course of IV ceftriaxone. No further needs while in patient, will need close outpatient follow-up with urology. Concern for MRSE bacteremia * ID following. Blood cultures +08/05 for MRSE. Possible contaminant but unclear. Treated with IV vancomycin through 09/11, then transition to p.o. doxycycline. Acute on chronic back pain with debility * PT/OT/case management following. Initially suspected that worsening back pain on admit was secondary to staghorn calculus, but back pain did not improve much with treatment of cystitis and stent placement. Notably had CT C/T/L- spine on 08/29 in the ED after a fall that showed no concerning findings, and repeat imaging here was again negative. Continue conservative pain management. Planning for SNF placement on discharge. Medically stable for discharge on 09/10, awaiting pre-CERT. * add cyclobenzaprine for what appears paraspinal muscle tenderness. * Pain out of proportion to exam. No additional narcotics upon discharge. ISABEL, improving * Nephrology following. Creatinine 5.63 on 08/29, baseline unclear prior to that. Creatinine has steadily improved with good urine output. Most recent creatinine 0.98 on 09/10. No need to monitor further BMPs while inpatient. Chronic conditions: * Decompensated nonalcoholic cirrhosis? Recent admission here in late August for hepatic encephalopathy secondary to decompensated cirrhosis. Has elevated LFTs with hyperbilirubinemia but this has remained stable. Continue home Xifaxan and lactulose. * Chronic hypotension? Continue home midodrine. * Class II obesity? BMI 35.9 on admit. Complicates hospital course, care and prognosis. * Type 2 diabetes mellitus? Continue home insulin glargine 10 units twice daily and sliding scale insulin with meals, adjust as needed. * History of tobacco abuse? Encouraged continued cessation. * Chronic anemia and thrombocytopenia? Hemoglobin remaining stable around baseline of 8-9. Platelets stable around baseline at 120. Medications at Discharge Home Medications lactulose 10 gram/15 mL oral solution 20 g (30 mL) PO Q8 #1,419 mL 09/02/24 lidocaine 5 % topical patch 3 patch topical DAILY #90 ea 09/02/24 midodrine 5 mg tablet 10 mg (2 x 5 mg) PO TIDCM #90 tabs 09/02/24 pantoprazole 40 mg tablet,delayed release 40 mg PO BID #60 tabs 09/02/24 rifaximin 550 mg tablet (Xifaxan) 550 mg PO BID #60 tabs 09/02/24 acetaminophen 500 mg tablet 1,000 mg (2 x 500 mg) PO Q8 #0 tabs 09/14/24 cyclobenzaprine 5 mg tablet 5 mg PO TID PRN muscle spasm #0 tabs 09/14/24 doxycycline monohydrate 100 mg capsule 100 mg PO BID #4 caps 09/14/24 insulin lispro 100 unit/mL subcutaneous pen (Humalog KwikPen (U-100) Insulin) See Protocol subcut ACHS #0 mL 09/14/24 Hospital Course Operations None Procedures None Summary of Care Provided Minutes Spent on Discharge: 32 Weight / BMI Weight Weight: 112.8 kg Body Mass Index (BMI) 36.7 ABG / Lab / Microbiology Data 09/12/24 03:49 09/12/24 03:49 Laboratory: Laboratory Results - last 24 hr 09/13/24 22:18: POC Glucose 191 H 09/14/24 06:51: POC Glucose 118 H 09/14/24 11:03: POC Glucose 176 H 09/14/24 17:03: POC Glucose 168 H Microbiology: Microbiology 09/06/24 09:25 Blood Culture (Wb) - Left Hand Blood Culture - Final No growth in 5 days. 09/05/24 01:02 Blood Culture (Wb) - Anticubital Right Blood Culture - Final Staphylococcus epidermidis 09/04/24 22:48 Urine Catheter - Catheter Urine Culture - Final Staphylococcus epidermidis 09/05/24 00:50 Blood Culture (Wb) - Anticubital Right Bacteria Detection (PCR) - Final Staphylococcus epidermidis mecA Resistance Marker 09/05/24 00:50 Blood Culture (Wb) - Anticubital Right Blood Culture - Final D/C Instructions Discharge Diet: 2000 Calorie Control Diet DC O2, CPAP, BIPAP Needs PSN CPAP & BiPAP: BiPAP & CPAP Settings per PSN Mode CPAP 09/10/24 02:41 Bipap Delivery Device Face Mask 09/07/24 01:24 BiPAP Expiratory Pressure 10 09/07/24 01:24 Fraction of Inspired Oxygen ( 21 09/07/24 01:24 FIO2) Home O2 Discharge instructions: No Meaningful Use Info Meaningful Use Meaningful Use Diagnoses (Choose all that apply): None applicable Ischemic Stroke Statin Dosing Therapy Reference: STATIN DOSE THERAPY REFERENCE: * Patients > 75 years receive moderate or high dose statin therapy. * Patients 75 years or YOUNGER should receive HIGH intensity statin dose unless contraindicated. You will be required to document reason for non-treatment if statin daily dose does not meet guidelines. HIGH DOSE STATIN THERAPY DAILY Atorvastatin > than or = to 40 mg Rosuvastatin > than or = to 20 mg Amlodipine + Atorvastatin > than or = to 2.5/40 mg Ezetimibe + Simvastatin 10/80 mg Simvastatin 80mg Discharge Plan Admission Admit Date/Time: 09/05/24 01:46 Attending Provider: Boone Izqueirdo Primary Care Provider: Care Physician,No Primary Consulting Providers: Hill Caro; Anurag Irene; Jae Ash; Thai Thurston; Josefina Khan; Foster Rascon Discharge Orders/Prescriptions Prescriptions: New acetaminophen 500 mg Tablet 1,000 mg PO Q8 Qty: 0 0RF doxycycline monohydrate 100 mg Capsule 100 mg PO BID Qty: 4 0RF insulin lispro [Humalog KwikPen Insulin] 100 unit/mL Insulin Pen See Protocol subcut ACHS Qty: 0 0RF Protocol: 4. Sliding Scale Insulin High-Med Dosing Condition: 150-199 mg/dl = 2 units Condition: 200-259 mg/dl = 4 units Condition: 260-324 mg/dl = 6 units Condition: 325-374 mg/dl = 8 units Condition: 375-409 mg/dl = 10 units Condition: 410-449 mg/dl = 11 units Condition: Greater than 449 call physician Protocol Text: Suggested for: - Patients on Total Daily Insulin Dose of 56-80 units - Patient who are known to be insulin resistant or septic HIGH MEDIUM DOSING ALGORITHM cyclobenzaprine 5 mg Tablet 5 mg PO TID PRN (Reason: muscle spasm) Qty: 0 0RF Continued lidocaine 5 % Adhesive Patch,Medicated 3 patch topical DAILY Qty: 90 0RF Protocol: *Topical Application Instructions APPLICATION INSTRUCTIONS: to affected region Rx Instructions: Apply to low back daily for pain lactulose 10 gram/15 mL Solution 20 g PO Q8 Qty: 1419 0RF Patient Comments: reports he has not taken it because it was across the room from him (09/04/2024) midodrine 5 mg Tablet 10 mg PO TIDCM Qty: 90 0RF pantoprazole 40 mg Tablet,Delayed Release (Dr/Ec) 40 mg PO BID Qty: 60 0RF Xifaxan 550 mg Tablet 550 mg PO BID Qty: 60 0RF Discontinued hydrocodone-acetaminophen 5-325 mg Tablet 1 tab PO Q4H PRN PRN (Reason: Pain Score 1-10) 7 Days Qty: 30 0RF Patient Comments: reports he has not taken it because it was across the room from him (09/04/2024) insulin glargine-yfgn 100 unit/mL (3 mL) Insulin Pen 10 unit subcut BID Qty: 5 0RF Patient Comments: reports he has not taken it because it was across the room from him (09/04/2024) Referrals / Follow Up: Foster Rascon MD [Med Staff - Active Staff] - Within 1 Month Care Physician,No Primary [Primary Care Provider] - Disposition Disposition (needs filled in before D/C Order can be placed): [facility] Facility Charges/Coding Visit Charges Inpatient E&M: 91073 Disch Hosp >30min
--- NOTE | 2024-09-14 19:03 | NURSING ---
Son, Leopoldo, called and informed that patient received precert and being picked up today at 9pm.
--- NOTE | 2024-09-14 19:52 | NURSING ---
1950- report called to [facility] RN by this RN
[2024-09-14 20:00] VITALS: BP 130/75; PULSE 84; RESP 17; TEMP 36.6; O2SAT 100
--- NOTE | 2024-09-14 20:17 | NURSING ---
Attempted to call nurse regarding discharge to see if they needed any additional information sent. Line cut out twice in process. Left message with staff when called back to have the nurse call if they need any more information.
[2024-09-14 20:55] LABS: Bedside Glucose 134 mg/dL (74-106)
--- NOTE | 2024-09-14 23:56 | NURSING ---
this RN taking over care at this time.
--- NOTE | 2024-09-15 00:19 | CPS ---
Patient refusing to wear CPAP
[2024-09-15 03:49] VITALS: BP 142/70; PULSE 80; RESP 17; TEMP 36.6; O2SAT 96
== END 2024-09-15 01:45 | disposition skilled nursing facility (03) | DRG 463 ==
LOC: ED 09-05 01:13 → ICU 09-05 01:59 → PCU 09-07 21:11
PROVIDERS: Family Medicine; Hospitalist; Internal Medicine; Internal Medicine Infectious Disease; Urology; Admitting Provider Internal Medicine; Emergency Provider Emergency Medicine
PROC: 0T778DZ Dilation of Left Ureter with Intraluminal Device, Via Natural or Artificial Opening Endoscopic (ICD-10-PCS; principal; 2024-09-05 10:00)
DX: N13.6 Pyonephrosis (principal); G93.41 Metabolic encephalopathy; R78.81 Bacteremia; E87.20 Acidosis, unspecified; R18.8 Other ascites; D63.8 Anemia in other chronic diseases classified elsewhere; E11.22 Type 2 diabetes mellitus with diabetic chronic kidney disease; K74.60 Unspecified cirrhosis of liver; I10 Essential (primary) hypertension; Z68.35 Body mass index [BMI] 35.0-35.9, adult; N17.9 Acute kidney failure, unspecified; E78.5 Hyperlipidemia, unspecified; G47.33 Obstructive sleep apnea (adult) (pediatric); Z79.4 Long term (current) use of insulin; M54.50 Low back pain, unspecified; M19.90 Unspecified osteoarthritis, unspecified site; K75.81 Nonalcoholic steatohepatitis (NASH); R31.29 Other microscopic hematuria; B95.7 Other staphylococcus as the cause of diseases classified elsewhere; G89.29 Other chronic pain; R53.81 Other malaise; E66.812 Obesity, class 2; Z79.891 Long term (current) use of opiate analgesic; R26.89 Other abnormalities of gait and mobility; Z87.891 Personal history of nicotine dependence
CPT/HCPCS: 36415; 74176; 76000; 80048; 80076; 80202; 80307; 81001; 82077; 82140; 82607; 82746; 82962; 83036; 83605; 84153; 84443; 85025; 85027; 87040; 87077; 87086; 87088; 87149; 87186; 94660; 94762; 97110; 97116; 97162; 97166; 97530; 97535; 99285; A4216; C1769; C2617; G0103; J0696

== ENCOUNTER → 2024-09-29 | Outpatient (CLI) | payer MEDICAID, SELFPAY ==
[2024-09-29 09:50] VITALS: BP 139/77; PULSE 89; RESP 18; TEMP 36.1; O2SAT 99
[2024-09-29] MEDS: Lidocaine 2% (20 ml mdv) 20 ML Vial INFILT (09:58)
[2024-09-29 10:01] VITALS: BP 140/77; PULSE 80; RESP 18; O2SAT 97
[2024-09-29 10:15] VITALS: BP 140/80; PULSE 87; RESP 18; O2SAT 99
[2024-09-29 10:21] VITALS: BP 138/74; PULSE 81; RESP 18; TEMP 36.3; O2SAT 99
--- NOTE | 2024-09-29 10:48 | OP.PCM_ITS ---
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 Abdominal ascites. PROVIDER: Jasmine Morocho CNP TECHNIQUE: The risks, benefits, and alternatives to the procedure were explained to the patient. The specific risks of bleeding, infection, and damage to bowel were detailed and accepted. Witnessed informed consent was obtained. The abdomen was ultrasonographically surveyed. An appropriate pocket of fluid was identified in the right lower quadrant. The skin was prepped with chlorhexidine and sterile field established. 2% lidocaine was used for local anesthetic. Using ultrasound guidance, the peritoneal cavity was accessed with a 5-Lebanese paracentesis needle/catheter system. The trocar was removed. A total of 4-5 oh next field ml of clear yellow colored fluid was removed from the peritoneal cavity. The catheter was removed and a sterile dressing was applied. The procedure was well tolerated. IMPRESSION: Successful ultrasound guided paracentesis with right lower quadrant access site. Surgical Findings: None Complications Complications: No
== END | disposition home or self-care (01) ==
DX: R18.8 Other ascites (principal); K74.60 Unspecified cirrhosis of liver
CPT/HCPCS: 49083

== ENCOUNTER 2024-10-28 17:10 | Inpatient (IN) | payer MEDICAID, SELFPAY ==
[2024-10-28 17:13] VITALS: BP 81/55; PULSE 85; RESP 16; TEMP 36.4; O2SAT 100
[2024-10-28 17:25] VITALS: BP 92/60; PULSE 84; RESP 14; O2SAT 95
--- NOTE | 2024-10-28 18:35 | CT_ITS ---
PROCEDURE: ABDOMEN/PELVIS W IV CONT ONLY 10/28/2024 REASON FOR EXAM: 59-year-old male, abdominal pain. TECHNIQUE: Abdomen and pelvis CT with intravenous contrast. Coronal and Sagittal reconstruction series were provided. PATIENT PREPARATION: Per protocol ORAL CONTRAST TYPE: None. CONTRAST: Isovue-300 VOLUME: 100mL One or more dose reduction techniques were used (e.g., Automated exposure control, adjustment of the mA and/or kV according to patient size, use of iterative reconstruction technique. RADIATION DOSE SUMMARY: CTDlvol: 28 mGy DLP: 1200 mGycm COMPARISON: CT abdomen pelvis 09/08/2024. FINDINGS: Lung bases: Bibasilar atelectasis. The heart is normal in size with coronary artery calcifications. Liver: Stable findings of liver cirrhosis with portal hypertension including large gastrohepatic splenic and esophageal varices. The major portal veins are patent. No biliary ductal dilation. Prominent portal lymph nodes, likely reactive. Gallbladder: Calcified stones within the gallbladder without gallbladder wall thickening or pericholecystic fluid. Spleen: Enlarged measuring 15.2 cm. Pancreas: Diffuse fatty atrophy. Adrenals: Unremarkable. Kidneys: Stable left double-J ureteral stent with large dystrophic calcifications within the left renal pelvis. No hydronephrosis. Bladder: Minimally distended. Reproductive Organs: Dystrophic calcifications within the prostate. Bowel: The bowel loops are normal in caliber with diffuse wall thickening, compatible with portal colopathy. No significant abdominopelvic ascites. No pneumoperitoneum. Normal appendix. Lymph nodes: Prominent periportal nodes, likely reactive. Vasculature: Mild calcific plaque of the aortoiliac vessels. Bones: Diffuse osseous demineralization. Slight interval progression of the T10 and T11 vertebral body compression fracture deformities. Chronic left rib fracture deformity. CT/Abdomen/Pelvis W IV Cont ONLY IMPRESSION: 1. No acute abdominopelvic finding. 2. Findings of liver cirrhosis with portal hypertension including splenomegaly, large varices and portal colopathy. No ascites. 3. Slight interval progression of the T10 and T11 vertebral body compression fr acture deformities. Reading Location: [facility]
--- NOTE | 2024-10-28 18:36 | EKG12_ITS ---
Test Reason : BACK Blood Pressure : */* mmHG Vent. Rate : 83 BPM Atrial Rate : 83 BPM P-R Int : 174 ms QRS Dur : 104 ms QT Int : 428 ms P-R-T Axes : 18 -44 43 degrees QTcB Int : 502 ms Normal sinus rhythm Left axis deviation Moderate voltage criteria for LVH, may be normal variant ( R in aVL , Tommie product ) Possible Inferior infarct , age undetermined Anterior infarct , age undetermined Prolonged QT Abnormal ECG Confirmed by CHEKO HERNANDEZ, KEVIN ([id number]), managing editor FAHAD INGRMA ([id number]) on 10/29/2024 8:24:49 AM Referred By: OTONIEL Confirmed By: KEVIN STILL MD
--- NOTE | 2024-10-28 18:37 | EDS_ITS ---
HPI History of Present Illness Chief Complaint: Back Detail of Chief Complaint: Patient with acute on chronic back pain and abdominal pain. Informant: patient Associated Symptoms Associated Symptoms: Abdominal Pain; Negative for Numbness, Tingling, Radiation to Right Leg, Radiation to Left Leg or Fever Narrative Narrative: 59-year-old male very limited informant. Has a history of chronic hypotension, diabetes, anemia, cirrhosis. States he has chronic back pain. He is also complaining of abdominal pain. Denies any fall injury or trauma to his back. Denies any fever. He has had diarrhea but no nausea or vomiting. No obvious dysuria. States his abdominal pain feels like he has not eaten enough and he still hungry but he is having discomfort. States the discomfort is primarily epigastric. Denies any chest pain or shortness of breath. Patient currently has no primary care physician. Prior similar symptoms: Yes Recent Illness/Hospitalization: No [facility] Medical History Chronic hypotension Obesity (BMI 30-39.9) Chronic back pain ISABEL (acute kidney injury) Hypotension Hepatic encephalopathy Hyperbilirubinemia Liver cirrhosis secondary to HARRIS (nonalcoholic steatohepatitis) HLD (hyperlipidemia) HTN (hypertension) Thrombocytopenia Chronic anemia Former tobacco use Diabetes mellitus, type 2 ABBY on CPAP Back pain Home Medications ?Medication ?Instructions ?Recorded ?Last Taken ?Type lidocaine 5 % topical patch 3 patch topical DAILY #90 ea 09/02/24 Unknown Rx pantoprazole 40 mg tablet,delayed 40 mg PO BID #60 tab s 09/02/24 Unknown Rx release rifaximin 550 mg tablet (Xifaxan) 550 mg PO BID #60 ta bs 09/02/24 Unknown Rx cyclobenzaprine 5 mg tablet 5 mg PO TID PRN muscle spa sm #0 09/14/24 Unknown Rx tabs insulin lispro 100 unit/mL See Protocol subcut ACHS #0 mL 09/14/24 Unknown Rx subcutaneous pen (Humalog KwikPen (U-100) Insulin) acetaminophen 500 mg tablet 1,000 mg PO Q8 PRN fever o r pain 10/28/24 Unknown History calcium 500 mg (as 1 tab PO DAILY 10/28/24 Unkn own History carbonate)-vitamin D3 5 mcg (200 unit) tablet (Oyster Shell Calcium-Vitamin D3) folic acid 1 mg tablet 1 mg PO DAILY 10/28/24 Unkno wn History furosemide 40 mg tablet 40 mg PO DAILY 10/28/24 Unkn own History ibuprofen 800 mg tablet 800 mg PO TID PRN PRN fever or pain 10/28/24 Unknown History Allergy/AdvReac Type Severity Reaction Status Date / Time No Known Allergies Allergy Verified 09/04/24 21:19 Family History Mother Heart disease Hypertension CAD (coronary artery disease) Myocardial infarction Father Hypertension Heart disease Heart failure Surgical History History of tonsillectomy and adenoidectomy Social History household members: significant other Smoking Status: Former smoker how long ago did patient quit smoking: Quit ~ 3-4 months prior (fall 2023), smoked 1.5 ppd since teen until quit. alcohol intake: never substance use type: does not use ROS ROS ED ROS Narrative Acute on chronic back pain. Abdominal pain. Diarrhea. Constitutional Constitutional ED: Denies chills or fever(s) Eyes Eyes: Denies blurry vision ENT ENT ED: Denies ear pain Cardiovascular Cardiovascular: Denies chest pain Respiratory/Chest Respiratory/Chest: Denies dyspnea Gastrointestinal Gastrointestinal: Reports abdominal pain and diarrhea; Denies constipation, melena, nausea or vomiting Genitourinary Genitourinary ED: Denies dysuria or hematuria Musculoskeletal Musculoskeletal: Reports back pain; Denies arthralgias, myalgias or neck pain Integumentary Denies abscess or Abrasions Neurologic Neurologic: Denies headache(s) Psychiatric Psychiatric: Denies anxiety Endocrine Endocrinology: Denies cold intolerance Hematologic/Lymphatic Hematologic/Lymphatic: Denies easy bleeding, easy bruising or lymphadenopathy Allergic/Immunologic Allergic/Immunologic ED: Denies mouth swelling, tongue swelling or urticaria EXAM Physical Exam Narrative Exam Narrative: 59-year-old male sitting upright in bed. There is a pressure was 81/50 5 repeat 92/60 when I am in the room it is 99/62. He does not look septic or toxic. He is in no acute distress. There is no family present in room. H EENT exam pupils round reactive light. Mildly dry mucous membranes. Neck nontender no JVD. Lungs clear to auscultation bilaterally. Heart regular rhythm rate about 85 no murmur. Chest wall ribs nontender. Abdomen soft nondistended normal bowel sounds without peritoneal sign. Small ascites. Chronic ventral hernia. Does not reduce. He said that is the baseline. No peritoneal signs. Right upper right lower quadrant unremarkable. No distention. No pulsatile mass. Moving all 4 extremities. Neurologically is awake alert answering questions following commands. He is a very limited informant. Const Vital Signs: 10/28/24 17:13 10/28/24 17:25 10/28/24 21:43 Temperature 97.6 F L Temperature Source Temporal Pulse Rate 85 84 84 Respiratory Rate 16 14 18 Blood Pressure 81/55 L 92/60 100/64 Blood Pressure Mean 63 70 76 Pulse Ox 100 95 95 Oxygen Delivery Method Room Air Room Air Room Air Positive well nourished and well developed; Negative for cachectic, contractures or unkempt General Appearance ED: well developed and NAD; Negative for unkempt, cachectic or contractures Nutritional Appearance: Negative for cachectic HEENT Reports dry mucous membranes; Denies moist mucous membranes Negative for trauma or tenderness Mouth ED: Yes dry mucous membranes Mouth: dry mucous membranes Eyes PERRL and EOMs intact bilaterally Neck no lymphadenopathy, supple and no JVD General: Negative for tenderness Thyroid: Negative for other Resp normal respiratory effort and clear to auscultation bilaterally Cardio regular rate, regular rhythm, S1 normal heart sound, S2 normal heart sound and no murmurs GI normal to inspection, nondistended, normoactive bowel sounds, soft to palpation, non-tender, non-distended and no masses GI Narrative: Ventral hernia that does not reduce but is nontender. There is no distention. Inspection: Negative for abdominal distention Palpation: Negative for tender, guarding, mass or pulsatile mass Back/Spine normal to inspection and no thoracic nor lumbar tenderness General Back: Negative for CVA tenderness Cervical Spine: Negative for cervical spine tenderness Thoracic Spine / Upper Back: Negative for paraspinal muscle tenderness Extremity normal to inspection and no clubbing, cyanosis or edema General Extremety ED: Negative for edema or tenderness General Extremity: Negative for edema Neuro oriented x3 Sensorium / Orientation: alert; Negative for confused, lethargic or stuporous Motor Exam: strength 5/5 throughout Psych mental status grossly normal Appearance: Negative for unkempt Attitude: No agitated Mood & Affect: Negative for depressed, sad or tearful Skin no rashes or lesions noted and no wounds General Skin Exam: Negative for jaundice Lesions: No lesion noted Rashes: No rashes noted Trauma: Negative for abrasion or puncture Wounds: Negative for wounds noted MDM MDM MDM Narrative Medical decision making narrative: 59-year-old male acute on chronic back pain. He will get IV fluids due to his hypotension. Possible dehydration. Screening labs for abdominal pain and CT. Multiple repeat exams. Patient has a leukocytosis which she has had in the past. He may have a UTI urine culture sent. To be started on Rocephin. Given that he is been transiently hypotensive he has an elevated white count elevated lactic acid I am going to admit him by the hospitalist on page. Patient be admitted for further evaluation for suspected sepsis. Currently he is stable at 12:10 AM. Current blood pressure is 110/67. Spoke to the hospitalist. Be admitted to the ICU. He has been written for 3 L of saline. Currently his pressure stable. He is awake and alert and talking. We discussed his admissi on. History & Record Review Discussion w/independent historian: Patient Additional record(s) reviewed:: Prior inpatient record, Prior outpatient record, Prior ED visit and Prior labs Lab Data Attestation: I reviewed the patient's lab results. Lab results narrative: CBC shows a white count 22.9. H&H 12.7 and 37. Platelets 142,000. Electrolytes show sodium 128. Anion gap 17. BUN 25 creatinine 1.3 glucose is 338. Liver enzymes show an alk phos of 274. Total bilirubin 1.86. Lipase is normal at 45. Urinalysis shows greater than 100 red cells. Greater then 100 white cells. 5 epithelial cells. 1+ bacteria. No nitrates. Urine culture sent. Treated with Rocephin. Lactic acid is 4.0. Labs: Laboratory Results - last 24 hr 10/28/24 10/28/24 18:45 19:45 WBC 22.9 H RBC 4.09 L Hgb 12.7 L Hct 37.3 L MCV 91.2 MCH 31.1 MCHC 34.0 RDW Std Deviation 62.7 H RDW Coeff of Francis 19.1 H Plt Count 142 L MPV 12.0 Immature Gran % (Auto) 1.400 H Neut % (Auto) 83.0 H Lymph % (Auto) 5.6 L [place] % (Auto) 8.4 Eos % (Auto) 1.4 Baso % (Auto) 0.2 Absolute Neuts (auto) 19.0 H Absolute Lymphs (auto) 1.28 Nucleated RBC % 0 Differential Comment SEE COMMENT Diff Path Review May foll Platelet Estimate ADEQUATE RBC Morphology N CHROM Anisocytosis RARE Macrocytosis RARE Ovalocytes RARE Sodium 128 L Potassium 4.5 Chloride 98 Carbon Dioxide 12.4 L Anion Gap 17 H BUN 25 H Creatinine 1.33 H Est GFR (MDRD) Non-Af 62 BUN/Creatinine Ratio 18.8 Glucose 338 H Lactic Acid 4.0 H* Calcium 9.2 Total Bilirubin 1.86 H AST 48 H ALT 23 Alkaline Phosphatase 274 H Total Protein 5.9 Albumin 2.5 L Globulin 3.4 Albumin/Globulin Ratio 0.7 L Lipase 45 Urine Color Red Urine Clarity Cloudy Urine pH 6.5 Ur Specific [place] 1.015 Urine Protein 500 H Urine Glucose (UA) 50 H Urine Ketones 5 H Urine Occult Blood 250 H Urine Nitrite Negative Urine Bilirubin 1 H Urine Urobilinogen Normal Ur Leukocyte Esterase 500 H Urine RBC > 100 SEEN Urine WBC >100 SEEN Ur Squamous Epith Cells 5-10 SEEN Amorphous Sediment 1+ URATE Urine Bacteria 1+ Urine Mucus 0 SEEN Radiography Diagnostic Testing: Clinical Impression(s) from Imaging Studies Abdomen/Pelvis CT 10/28/24 18:35 IMPRESSION: 1. No acute abdominopelvic finding. 2. Findings of liver cirrhosis with portal hypertension including splenomegaly, large varices and portal colopathy. No ascites. 3. Slight interval progression of the T10 and T11 vertebral body compression fracture deformities. Reading Location: [facility] Rhythm Strip Rhythm Strip: Sinus Rhythm Rate: 83 Ectopy: None EKG Initial EKG: Attestation: I personally reviewed and interpreted this EKG as follows: Interpretation: Sinus Rhythm and No Acute Injury Pattern Comments: Normal sinus rhythm rate 83 no acute signs of ME or ischemia. No dysrhythmia. Critical Care Time Critical Care Time: Yes Critical care time (excluding procedures): 30-74 minutes, Including time spent:, Discussing w/Patient &/or Family/Air Traffic Instructor, Discussing w/Consultants, Arranging Admission or Transfer, Performing Direct Patient Care at Bedside and - (38 min) Discharge Plan Dx/Rx/DC Orders Clinical Impression: Chronic back pain, Chronic abdominal pain, Leukocytosis, Acute UTI, Acute hypotension, Acidosis, lactic, Sepsis Disposition Disposition: Acute Care Hospital [facility]
[2024-10-28] MEDS: 0.9% Normal Saline (1000mL) 1,000 ML 999 ML IV (18:44)
[2024-10-28] MEDS: fentaNYL 100 MCG/2 ML Ampul 50 MCG IV (18:45)
[2024-10-28 19:00] LABS: Absolute Lymphocyte Count 1.28 X10^3/uL (0.83-4.51); Basophil# 0.05 X10^3/uL; Basophil% 0.2 % (0-1); Eosinophil# 0.31 X10^3/uL; Eosinophils% 1.4 % (0-5); Hematocrit 37.3 % (40-54); Hemoglobin 12.7 g/dL (13.0-16.5); Lymphocyte # 1.28 X10^3/ul (0.83-4.51); Lymphocyte % 5.6 % (19-41); Mean Corpuscular Hgb 31.1 pg (27.0-32.0); Mean Corpuscular Volume 91.2 fL (80-94); Monocyte# 1.92 X10^3/uL; Monocyte% 8.4 % (0-10); NRBC Flagged by Analyzer 0 % (0-5); POSITIVE DIFFERENTIAL YES; Platelet Count 142 K/mm3 (150-450); RBC Distribution Width CV 19.1 % (11.6-14.6); RBC Distribution Width SD 62.7 fl (35.1-43.9); Red Blood Count 4.09 M/mm3 (4.6-6.2); White Blood Count 22.9 K/mm3 (4.4-11.0)
[2024-10-28 19:17] LABS: ALB/GLOB Ratio 0.7 RATIO (0.9-2.4); AST(SGOT) 48 U/L (<=37); Alanine Aminotransfer ALT/SGPT 23 U/L (<=46); Albumin, Serum 2.5 g/dL (3.5-5.0); Alkaline Phosphatase 274 U/L (40-129); Anion Gap 17 (5-15); BUN 25 mg/dL (4-19); BUN/Creat Ratio 18.8 RATIO (10-20); Calcium,Total 9.2 mg/dL (7.6-11.0); Carbon Dioxide 12.4 mmol/L (21.0-32.0); Chloride 98 mmol/L (98-108); Creatinine, Serum 1.33 mg/dL (0.70-1.20); EST Glomerular Filtration Rate 62 (>60); Globulin 3.4 g/dL (2.2-4.2); Glucose 338 mg/dL (70-99); Lipase 45 U/L (13-75); Potassium 4.5 mmol/L (3.3-5.1); Protein, Total 5.9 g/dL (5.9-8.4); Sodium Level 128 mmol/L (133-145); Total Bilirubin 1.86 mg/dL (0.00-1.30)
[2024-10-28 19:30] LABS: Differential Indicated SCAN CRITERIA MET
[2024-10-28 19:31] LABS: Anisocytosis RARE; Macrocytosis RARE; Ovalocyte RARE; Platelet Estimate ADEQUATE (ADEQ); Red Cell Morphology N CHROM NORMAL (NORM C&C)
[2024-10-28 19:52] LABS: Mucous, Urine 0 SEEN /hpf (<or=2+)
[2024-10-28 19:53] LABS: Color, Urine Red (Yellow); Glucose, Dipstick 50 mg/dl (Normal); Ketone-Dipstick 5 mg/dl (Negative); Leukocyte Esterase-Dipstick 500 /ul (Negative); Nitrite-Dipstick Negative (Negative); Occult Blood-Urine 250 /ul (Negative); Protein-Dipstick 500 mg/dl (Negative); Specific Gravity, Urine 1.015 (1.002-1.030); Urine Clarity Cloudy (Clear); Urine Urobilinogen Normal (Normal); Urine pH 6.5 (5.0 - 8.0)
[2024-10-28 19:59] LABS: Urine Bilirubin Dipstick 1 mg/dL (Negative)
[2024-10-28 20:05] LABS: Red Blood Cells-Urine > 100 SEEN /hpf (0-5); Squamous Epithelial Cells - UA 5-10 SEEN /hpf (0-5); White Blood Cells >100 SEEN /hpf (0-5)
[2024-10-28 20:06] LABS: Amorphous Sediment 1+ URATE; Bacteria 1+ /hpf (None Seen)
[2024-10-28 21:43] VITALS: BP 100/64; PULSE 84; RESP 18; O2SAT 95; BMI 30.4
--- NOTE | 2024-10-28 22:19 | CM.ED ---
Social Work Patient presented to the ED for back and abdomen pain. SDOH was completed. Patient states that he is living in a home with his exwife, her , 2 other guys, and several cats and dogs. Patient states that his ex and her do the shopping and cooking, that there is food but not always enough. Patient also states that there is electric and water in the home, but the water is well water and it does not always work. Patient states he cannot remember the last time he was able to bathe, was probably over a month ago. Patient states that the home is not always heated, that there is a wood burner and he has a space heater, but he often wakes up cold. Patient was agreeable to [facility] referral, referral completed. Patient was also given resources for housing, food pantries and meals, [facility] card, [facility] provider list and transportation. An APS referral was made. Jessie Wild, FAMILY DAY CARER, FUNERAL COUNSELOR
[2024-10-28] MEDS: Ondansetron 4 MG/2 ML Vial IV (23:50)
[2024-10-29] VITALS (32 sets, daily range): BP systolic 92–146; BP diastolic 54–111; PULSE 74–99; RESP 11–20; TEMP 36.2–36.8; O2SAT 92–100; BMI 29.5
--- NOTE | 2024-10-29 00:33 | HP.PCM.HOS_ITS ---
[facility] - General General Date of Admission: 10/29/24 Date of Service: 10/29/24 Chief Complaint: Abdominal, Back Pain and Diarrhea. HPI Narrative FRANKLIN WIGGINS, is a 59 M with a past medical history of chronic hypotension; previously on midodrine 3 times daily, former tobacco abuse (quit 2023), obesity; with BMI of 30.4 this admission, ABBY; on CPAP, DM-2; of unknown control on insulin lispro AC/HS, history of nonalcoholic cirrhotic liver disease, chronic anemia/thrombocytopenia; presumed to be due to underlying liver disease, OA; with chronic back pain, history of mechanical fall on August 21, 2024 with a ED visit at that time showing acute on chronic lumbar spine discomfort with otherwise unremarkable ED evaluation and admission here from August 29, 2024 to September 02, 2024 with patient diagnosed with [id number] hypotension in the setting of acute hepatic encephalopathy with hyperammonemia secondary to underlying chronic nonalcoholic liver cirrhosis with hyperbilirubinemia in addition to suspected ISABEL in the setting of CKD; of uncertain stage and shock attributed to hypovolemia with discharge summary revealing elevated creatinine of 5.63 mg/dL and BUN was 76 mg/dL with ensuing nephrology consultation which mentioned Left Staghorn Calculus with patient then readmitted here on September 05, 2024 to September 14, 2024 when he underwent cystoscopy with Left ureteral stent placement by Dr. Rascon of urology with plan for laser lithotripsy once infection cleared with patient completing a course of IV ceftriaxone with Left ureteral stent still in place along with 1/2 blood cultures returning positive for MRSA (with patient treated with IV vancomycin until September 11, 2024) with records showing he underwent outpatient ultrasound-guided paracentesis on September 29, 2024 with ~4.5L of yellow-colored fluid removed who once again presents to [facility] ER complaining of abdominal pain, back pain and diarrhea. Mr. Wiggins is a very limited historian - but he reports his symptoms began approximately 2 days prior to admission with the gradual-onset of progressively worsening abdominal pain that was generalized but primarily focused in the epigastrium. He describes the discomfort as being like a 'hunger pain' that was initially moderate and intermittent but then became severe. He then developed nonbloody diarrhea and an acute worsening of his chronic back pain. He denies associated fever, chills, visual changes, runny nose, sore throat, ear pain, chest pain, palpitations, heart racing, SOB, headache or dysuria. In the ER he as noted to have Severe Leukocytosis of 22.9K; with 1.4% Left-shift, Lactic Acidosis of 4 mmol/L all present on admission with Hypotension of 81/55 mmHg noted shortly after admission with a UA positive for Acute Cystitis; with hematuria consistent with Sepsis with Septic Shock with corresponding CT evidence of stable Left double-J stent with Large Dystrophic Calcifications within the Left renal pelvis, with no evidence of hydronephrosis in addition to findings of cirrhosis with protal hypertension including splenomegaly, large varices and portal colopathy, without ascites complicated by Diarrhea with clinical evidence of Abdominal Pain plus AE of Chronic Back Pain and additional laboratory evidence of Hyponatremia of 128 mmol/L present on admission. He was then admitted to the ICU for treatment under the Sepsis protocol for a stay that is expected to extend beyond 2 midnights. ON LICENSE OF [facility] Medical History Chronic hypotension Obesity (BMI 30-39.9) Chronic back pain ISABEL (acute kidney injury) Hypotension Hepatic encephalopathy Hyperbilirubinemia Liver cirrhosis secondary to HARRIS (nonalcoholic steatohepatitis) HLD (hyperlipidemia) HTN (hypertension) Thrombocytopenia Chronic anemia Former tobacco use Diabetes mellitus, type 2 ABBY on CPAP Back pain Home Medications ?Medication ?Instructions ?Recorded ?Last Taken ?Type lidocaine 5 % topical patch 3 patch topical DAILY #90 ea 09/02/24 Unknown Rx pantoprazole 40 mg tablet,delayed 40 mg PO BID #60 tab s 09/02/24 Unknown Rx release rifaximin 550 mg tablet (Xifaxan) 550 mg PO BID #60 ta bs 09/02/24 Unknown Rx cyclobenzaprine 5 mg tablet 5 mg PO TID PRN muscle spa sm #0 09/14/24 Unknown Rx tabs insulin lispro 100 unit/mL See Protocol subcut ACHS #0 mL 09/14/24 Unknown Rx subcutaneous pen (Humalog KwikPen (U-100) Insulin) acetaminophen 500 mg tablet 1,000 mg PO Q8 PRN fever o r pain 10/28/24 Unknown History calcium 500 mg (as 1 tab PO DAILY 10/28/24 Unkn own History carbonate)-vitamin D3 5 mcg (200 unit) tablet (Oyster Shell Calcium-Vitamin D3) folic acid 1 mg tablet 1 mg PO DAILY 10/28/24 Unkno wn History furosemide 40 mg tablet 40 mg PO DAILY 10/28/24 Unkn own History ibuprofen 800 mg tablet 800 mg PO TID PRN PRN fever or pain 10/28/24 Unknown History Allergy/AdvReac Type Severity Reaction Status Date / Time No Known Allergies Allergy Verified 09/04/24 21:19 Family History Mother Heart disease Hypertension CAD (coronary artery disease) Myocardial infarction Father Hypertension Heart disease Heart failure Surgical History History of tonsillectomy and adenoidectomy Social History household members: significant other Smoking Status: Former smoker how long ago did patient quit smoking: Quit ~ 3-4 months prior (fall 2023), smoked 1.5 ppd since teen until quit. alcohol intake: never substance use type: does not use ROS ROS Narrative Review of Systems: Constitutional: Vital Signs Vital Signs Vital Signs: 10/28/24 17:13 10/28/24 17:25 10/28/24 21:43 Temperature 97.6 F L Temperature Source Temporal Pulse Rate 85 84 84 Respiratory Rate 16 14 18 Blood Pressure 81/55 L 92/60 100/64 Blood Pressure Mean 63 70 76 Pulse Ox 100 95 95 Oxygen Delivery Method Room Air Room Air Room Air Weight Weight: 205 lb 4.006 oz Body Mass Index (BMI) 30.4 Physical Exam Const alert, oriented x3, no apparent distress and average body habitus Constitutional Narrative: Patient has chronically ill appearance. General Appearance: cooperative Orientation / Consciousness: lethargic HEENT normocephalic, head/scalp atraumatic and hearing grossly normal bilaterally HEENT Narrative: Mucous membranes dry. Eyes PERRL and EOMs intact bilaterally Neck no lymphadenopathy and supple Resp normal respiratory effort, no retractions, no use of accessory muscles and clear to auscultation bilaterally Cardio regular rate and regular rhythm GI normal to inspection, nondistended, normoactive bowel sounds, soft to palpation, non-tender and non-distended GI Narrative: Small ascites noted with chronic nonreducible ventral hernia. Extremity normal to inspection, full ROM and no clubbing, cyanosis or edema Skin Skin Narrative: Patient has no evidence of rash, abscess, wounds or jaundice. Neuro oriented x3, CN's II-XII intact bilaterally, moves all extremities and no focal motor deficits Sensorium / Orientation: awake, alert, oriented to person, oriented to place and oriented to time Speech: speech normal Psych Mood & Affect: depressed Results Medical Records Data Attestation: I reviewed the patient's medical records Lab / Micro Data Attestation: I reviewed the patient's lab results. 10/28/24 18:45 10/28/24 18:45 Labs: Laboratory Results - last 24 hr 10/28/24 18:45: WBC 22.9 H, RBC 4.09 L, Hgb 12.7 L, Hct 37.3 L, MCV 91.2, MCH 31.1, MCHC 34.0, RDW Std Deviation 62.7 H, RDW Coeff of Francis 19.1 H, Plt Count 142 L, MPV 12.0, Immature Gran % (Auto) 1.400 H, Neut % (Auto) 83.0 H, Lymph % (Auto) 5.6 L, Lamoure % (Auto) 8.4, Eos % (Auto) 1.4, Baso % (Auto) 0.2, Absolute Neuts (auto) 19.0 H, Absolute Lymphs (auto) 1.28, Nucleated RBC % 0, Differential Comment SEE COMMENT, Diff Path Review May foll, Platelet Estimate ADEQUATE, RBC Morphology N CHROM, Anisocytosis RARE, Macrocytosis RARE, Ovalocytes RARE, Sodium 128 L, Potassium 4.5, Chloride 98, Carbon Dioxide 12.4 L , Anion Gap 17 H, BUN 25 H, Creatinine 1.33 H, Est GFR (MDRD) Non-Af 62, BUN/Creatinine Ratio 18.8, Glucose 338 H, Lactic Acid 4.0 H*, Calcium 9.2, Total Bilirubin 1.86 H, AST 48 H, ALT 23, Alkaline Phosphatase 274 H, Total Protein 5.9, Albumin 2.5 L, Globulin 3.4, Albumin/Globulin Ratio 0.7 L, Lipase 45 10/28/24 19:45: Urine Color Red, Urine Clarity Cloudy, Urine pH 6.5, Ur Specific Randolph 1.015, Urine Protein 500 H, Urine Glucose (UA) 50 H, Urine Ketones 5 H, Urine Occult Blood 250 H, Urine Nitrite Negative, Urine Bilirubin 1 H, Urine Urobilinogen Normal, Ur Leukocyte Esterase 500 H, Urine RBC > 100 SEEN, Urine WBC >100 SEEN, Ur Squamous Epith Cells 5-10 SEEN, Amorphous Sediment 1+ URATE, Urine Bacteria 1+, Urine Mucus 0 SEEN Rhythm Strip Rhythm Strip: Sinus Rhythm Rate: 83 Ectopy: None Imaging Radiology Impression Abdomen/Pelvis CT 10/28/24 18:35 IMPRESSION: 1. No acute abdominopelvic finding. 2. Findings of liver cirrhosis with portal hypertension including splenomegaly, large varices and portal colopathy. No ascites. 3. Slight interval progression of the T10 and T11 vertebral body compression fracture deformities. Reading Location: [facility] Assessment & Plan Assessment/Plan (1) Sepsis: QUALIFIERS: Sepsis acute organ dysfunction status: with acute organ dysfunction Sepsis type: sepsis due to unspecified organism Severe sepsis acute organ dysfunction type: unspecified Severe sepsis shock status: w ith septic shock Qualified Code(s): A41.9 - Sepsis, unspecified organism; R65.21 - Severe sepsis with septic shock (2) Acute hypotension: (3) Leukocytosis: QUALIFIERS: Leukocytosis type: unspecified Qualified Code(s): D 72.829 - Elevated white blood cell count, unspecified (4) Acidosis, lactic: (5) Acute UTI: (6) History of uric acid staghorn calculus: (7) Diarrhea: QUALIFIERS: Diarrhea type: presumed infectious Qualified Code(s): R19.7 - Diarrhea, unspecified (8) Chronic abdominal pain: (9) Chronic back pain: QUALIFIERS: Back pain laterality: unspecified Back pain location: back pain in unspecified location Qualified Code(s): M54.9 - Dorsalgia, unspecified; G89.29 - Other chronic pain (10) Hyponatremia: (11) Obesity (BMI 30.0-34.9): PLAN: Plan 1. Severe Leukocytosis of 22.9K; with 1.4% Left-shift, Lactic Acidosis of 4 mmol/L all present on admission with Hypotension of 81/55 mmHg noted shortly after admission with a UA positive for Acute Cystitis; with hematuria consistent with Sepsis with Septic Shock with corresponding CT evidence of stable Left double-J stent with Large Dystrophic Calcifications within the Left renal pelvis , with no evidence of hydronephrosis in addition to findings of cirrhosis with protal hypertension including splenomegaly, large varices and portal colopathy, without ascites - Admit to ICU for treatment under the Sepsis protocol. Stop IV ceftriaxone and begin treatment with IV piperacillin-tazobactam and IV vancomycin and await culture and sensitivity data. Give acetaminophen prn for [id number] (level 1-5/10) pain or fever. Give morphine IV prn for severe (level 6-10/10) pain. Give pantoprazole 40 mg IV daily for GI prophylaxis given his critical illness. Give ondansetron IV prn for nausea and vomiting. Give NS IVF plus IV Albumin x 1 in addition to restarting his midodrine to keep MAP > 65 mmHg - but if blood pressure drops in spite of these measures we will start Levophed drip. Check 8:00 AM cortisol to evaluate for possible underlying adrenal insufficiency. We will consult urology to see this patient on rounds in the AM for this recurrent infection with help appreciated in advance. Finally, we will consult cup 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 to see this patient on-rounds in the AM for further recommendations with help appreciated in advance. 2. Admission here from August 29, 2024 to September 02, 2024 with patient diagnosed with [id number] hypotension in the setting of acute hepatic encephalopathy with hyperammonemia secondary to underlying chronic nonalcoholic liver cirrhosis with hyperbilirubinemia in addition to suspected ISABEL in the setting of CKD; of uncertain stage and shock attributed to hypovolemia with discharge summary revealing elevated creatinine of 5.63 mg/dL and BUN was 76 mg/dL with ensuing nephrology consultation which mentioned Left Staghorn Calculus with patient then readmitted here on September 05, 2024 to September 14, 2024 when he underwent cystoscopy with Left ureteral stent placement by Dr. Rascon of urology with plan for laser lithotripsy once infection cleared with patient completing a course of IV ceftriaxone with Left ureteral stent still in place along with 1/2 blood cultures returning positive for MRSA (with patient treated with IV vancomycin until September 11, 2024) complicating #1 - Noted. 3. Nonbloody Diarrhea compounding #1 & #2 - Place on enteric precautions and check stool studies for presumed infectious cause until proven otherwise. 4. Abdominal Pain plus AE of Chronic Back Pain attributable to #1 - #3 - We will follow pain regimen and scale outlined in #1. 5. Hyponatremia of 128 mmol/L present on admission (down from 136 mmol/L on September 12, 2024) adding to the medical complexity of #1 - #4 - Give NS IVF and then recheck level in AM to confirm improvement. Check serum and urine osmolality. 6. History of nonalcoholic cirrhotic liver disease amplifying the pathology of #1 - #5 - Noted with mild hyperbilirubinemia of 1.83 mg/dL, with AST 48 U/L, ALT 23 U/L and Alkaline Phosphatase 274 U/L all present on admission - but improved since his recent previous admission. He underwent outpatient ultrasound-guided paracentesis on September 29, 2024 with ~4.5L of yellow-colored fluid removed with no ascites on CT this admission. Check CMP daily to follow trend. 7. Obesity; with BMI of 30.4 this admission plus ABBY; on CPAP adding to the burden of disease outlined from #1 - #6 - Weight loss will be recommended. Resume nocturnal CPAP as before. Check TSH. This complicates his case and may hamper recovery. 8. Chronic hypotension; previously on midodrine 3 times daily - Midodrine restarted as outlined in #1. 9. Former tobacco abuse (quit 2023) - Noted. 10. DM-2; of unknown control on insulin lispro AC/HS - Keep NPO for now. Check FSBS q. 6 hours plus SSI. Check HgbA1c to objectively evaluate quality of diabetic control. 11. Chronic anemia/thrombocytopenia; presumed to be due to underlying liver disease - Stable with hemoglobin of 12.7g/dL and platelet count of 142K present on admission. 12. History of mechanical fall on August 21, 2024 with a ED visit at that time showing acute on chronic lumbar spine discomfort with otherwise unremarkable ED evaluation - Noted for the sake of completeness. 13. DVT/GI prophylaxis - Lovenox 30 mg sq daily plus SCD's. Pantoprazole 40 mg IV daily. Total time: Approximately (but not less than) 75 minutes. Sepsis Attestation Sepsis Alert: Yes Sepsis Attestation: Agree w/Sepsis Date exam was performed: 10/29/24 Time exam was performed: 01:00 Possible Source of Sepsis: GI tract/intra-abdominal and Genitourinary Sepsis Organ Dysfunction Criteria Present: SBP < 90 mmHg or MAP < 65 mmHg and Lactic Acid > 2 mmol/L Fluid Resuscitation Fluid resuscitation indicated?: Yes Fluid Resuscitation ordered: 30 ml/kg fluid bolus ordered Amount of fluid ordered: 2 Sepsis Note Date exam was performed: 10/29/24 Time exam was performed: 05:00 Sepsis Attestation: Sepsis re-evaluation was performed Response to fluids: Fluid responsive hypotension Charges/Coding Visit Charges Inpatient E&M: 30398 Init Hosp L3
--- NOTE | 2024-10-29 00:52 | US_ITS ---
PROCEDURE: KIDNEY AND BLADDER 10/29/2024 REASON FOR EXAM: UTI WITH SEPSIS AND H/O STAGHORN CALCULUS. TECHNIQUE: Bilateral renal ultrasound. COMPARISON: 10/28/2024 FINDINGS: Right kidney: Normal echogenicity and vascularity. No hydronephrosis. Size: 11.1 x 5.7 x 5.9 cm Left kidney: Normal echogenicity and vascularity. No hydronephrosis. Size: 12.3 x 5.1 x 5.9 cm the staghorn calculus of the lower pole of the left kidney is better visualized on the recent CT scan, however, calcifications are noted. Urinary bladder: Distended volume of 260 mL. The distal ureters and ureteral jets are nonvisualized. The bladder wall is normal thickness. The left-sided ureteral stent is noted. US/Kidney and Bladder IMPRESSION: 1. No hydronephrosis. 2. Staghorn calculus in the lower pole of the left kidney is better visualized on the recent CT scan. 3. Left-sided ureteral stent noted. Reading Location: [facility]
[2024-10-29] MEDS: Ceftriaxone 1 GM/50 ML BAG IV (01:08)
[2024-10-29] MEDS: 0.9% Normal Saline (1000mL) 1,000 ML 999 ML IV ×2 (01:08)
[2024-10-29] MEDS: Albumin Human 25% (100 mL) 25 GM/100 ML BAG IV (02:13)
[2024-10-29] MEDS: Midodrine HCl 5 MG Tablet 10 MG PO ×4 (02:13→17:46)
[2024-10-29] MEDS: Piperacil/Tazobactam 3.375 GM in 0.9% Normal Saline (50mL MB+) 50 ML IV ×3 (02:13→21:53)
[2024-10-29] MEDS: 0.9% Normal Saline (1000mL) 1,000 ML 125 ML IV (02:14)
[2024-10-29] MEDS: Morphine 2 MG/ML Syringe IV (02:14)
[2024-10-29 02:15] LABS: Hemoglobin A1c 6.7 % (<=5.6)
[2024-10-29 02:35] LABS: Osmolality, Serum 292 mOsm/KG (275-295)
[2024-10-29] MEDS: Vancomycin HCl 2,000 MG in 0.9% Normal Saline (500mL Bag) 500 ML 250 MG IV (02:42)
[2024-10-29] MEDS: 0.9% Saline Lock 10 ML Syringe IV ×2 (02:52→23:10)
[2024-10-29 02:58] LABS: Cholesterol 132 mg/dL (<=200); High Density Lipoprotein 33 mg/dL; Low Density Lipoprotein Calc. 83 mg/dL; Triglycerides 83 mg/dL; Very Low Density Lipoprotein 17 mg/dL (5-40); cholesterol:hdl ratio screen 4.04
--- NOTE | 2024-10-29 03:17 | PCM.RX.CS ---
Consult Antibiotic Management Pharmacy has been consulted to manage selected antibiotic: Vancomycin Type of Intervention Type of Consult: New start Suspected Infection Suspected Infection: Sepsis Labs Labs: Sodium 128 mmol/L (133-145) L 10/28/24 18:45 Potassium 4.5 mmol/L (3.3-5.1) 10/28/24 18:45 Chloride 98 mmol/L (98-108) 10/28/24 18:45 Carbon Dioxide 12.4 mmol/L (21.0-32.0) L 10/28/24 18:45 Anion Gap 17 (5-15) H 10/28/24 18:45 BUN 25 mg/dL (4-19) H 10/28/24 18:45 Creatinine 1.33 mg/dL (0.70-1.20) H 10/28/24 18:45 Est GFR (MDRD) Non-Af 62 (>60) 10/28/24 18:45 BUN/Creatinine Ratio 18.8 RATIO (10-20) 10/28/24 18:45 Glucose 338 mg/dL (70-99) H 10/28/24 18:45 Estimated Creatinine Clearance Estimated Creatinine Clearance: 67.3 Goal Trough Goal Trough: 15-20 mcg/mL Pharmacy Plan for Drug Dosing Pharmacy Plan for Drug Dosing: NEW START IV VANCOMYCIN Consulting Physician: Dr. Caro Indication: Sepsis Goal Trough: 15-20 SrCr: 1.33 CrCl: 67.3 ml/min Comments: Loading dose 2000mg x1 dose given @ 02:42 10/29/24 Vancomycin Dose: 1000mg Q12H to start @ 15:00 10/29/24 Pending Level: Vancomycin trough @ 14:30 10/30/24 Pharmacy Service will continue to monitor and adjust dosing as required. Follow-Up Labs Follow-Up Labs: Trough: Vancomycin (10/30/24 @ 14:30)
[2024-10-29 05:13] LABS: Osmolality, Urine 484 mOsm/KG
[2024-10-29] MEDS: Enoxaparin 30 MG/0.3 ML Syringe SC (05:13)
--- NOTE | 2024-10-29 07:44 | CON.PCM.CC_ITS ---
Assessment & Plan Assessment/Plan (1) Sepsis: QUALIFIERS: Sepsis acute organ dysfunction status: with acute organ dysfunction Sepsis type: sepsis due to unspecified organism Severe sepsis acute organ dysfunction type: unspecified Severe sepsis shock status: w ith septic shock Qualified Code(s): A41.9 - Sepsis, unspecified organism; R65.21 - Severe sepsis with septic shock PLAN: Plan RECOMMENDATIONS: 1. Continue gentle IV fluid hydration. 2. Empiric broad-spectrum antimicrobials, pending culture results. 3. Continue scheduled midodrine. 4. Urology consultation pending. 5. Encourage incentive spirometer use and mobilize patient as tolerated. 6. Initiate sliding scale insulin coverage once diet is advanced. IMPRESSIONS: 1. Sepsis The patient presented with sepsis due to probable urinary tract source of infection with acute sepsis related organ dysfunction as evidenced by hypotension and lactic acidemia. The patient did receive supplemental IV fluid hydration and has remained hemodynamically stable, without the need for vasopressor support. Given the patient's complicated urologic history, consultation was placed to urology for further evaluation. The patient will remain on empiric broad-spectrum antimicrobials. Scheduled midodrine will be continued. 2. History of HARRIS cirrhosis/chronic hypotension/tobacco dependency in remission/diabetes mellitus/anemia and thrombocytopenia Complicates care, management, recovery and prognosis. Continue supportive care as noted above. If no form of intervention is planned by urology, the patient's diet can be advanced and sliding scale insulin coverage initiated. This note was generated with [employer] dictation software. It may contain incorrect words, spelling, and punctuation that were not noted in checking the note before signing. HPI Consult Data Date of Consult: 10/29/24 HPI Narrative Reason for Consultation: Sepsis HPI Narrative: The patient is a 59-year-old male, with a history as outlined below, who presented to the emergency department via EMS on October 28 with complaints of abdominal and back pain. The patient has a known medical history that includes chronic tobacco dependency, in remission, diabetes mellitus, HARRIS cirrhosis, chronic back pain and chronic hypotension on midodrine. The patient was last hospitalized in September 2024 with cystitis in the setting of a left-sided staghorn calculus that required cystoscopy and stent placement along with MRSE bacteremia and acute on chronic back pain. On presentation to the emergency department, the patient was documented to be afebrile with a presenting blood pressure of 81/55 mmHg. The patient was maintaining appropriate oxygen saturations on room air. Laboratory evaluation was notable for a white blood cell count of 23,000. Hemoglobin and platelet count were stable. Chemistry profile was notable for a sodium of 128, anion gap of 17, BUN of 25 and creatinine of 1.3. Lactate was elevated at 4.0. Lipase was within normal limits. Urine analysis was positive for leukocyte esterase and 1+ urine bacteria. CT abdomen/pelvis demonstrated a cirrhotic appearing liver with dystrophic calcifications within the prostate. The patient received supplemental IV fluid hydration and was initiated on antimicrobial therapy. He was subsequently admitted to the medical intensive care unit for further management. This morning, the patient is resting comfortably in bed. He denied having experienced any recent diarrhea. He has remained hemodynamically stable, without the need for vasopressor support. 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 (nonalcoholic steatohepatitis) HLD (hyperlipidemia) HTN (hypertension) Thrombocytopenia Chronic anemia Former tobacco use Diabetes mellitus, type 2 ABBY on CPAP Back pain Home Medications ?Medication ?Instructions ?Recorded ?Last Taken ?Type lidocaine 5 % topical patch 3 patch topical DAILY #90 ea 09/02/24 Unknown Rx pantoprazole 40 mg tablet,delayed 40 mg PO BID #60 tab s 09/02/24 Unknown Rx release rifaximin 550 mg tablet (Xifaxan) 550 mg PO BID #60 ta bs 09/02/24 Unknown Rx cyclobenzaprine 5 mg tablet 5 mg PO TID PRN muscle spa sm #0 09/14/24 Unknown Rx tabs insulin lispro 100 unit/mL See Protocol subcut ACHS #0 mL 09/14/24 Unknown Rx subcutaneous pen (Humalog KwikPen (U-100) Insulin) acetaminophen 500 mg tablet 1,000 mg PO Q8 PRN fever o r pain 10/28/24 Unknown History calcium 500 mg (as 1 tab PO DAILY 10/28/24 Unkn own History carbonate)-vitamin D3 5 mcg (200 unit) tablet (Oyster Shell Calcium-Vitamin D3) folic acid 1 mg tablet 1 mg PO DAILY 10/28/24 Unkno wn History furosemide 40 mg tablet 40 mg PO DAILY 10/28/24 Unkn own History ibuprofen 800 mg tablet 800 mg PO TID PRN PRN fever or pain 10/28/24 Unknown History Allergy/AdvReac Type Severity Reaction Status Date / Time No Known Allergies Allergy Verified 09/04/24 21:19 Family History Mother Heart disease Hypertension CAD (coronary artery disease) Myocardial infarction Father Hypertension Heart disease Heart failure Surgical History History of tonsillectomy and adenoidectomy Social History household members: significant other Smoking Status: Former smoker how long ago did patient quit smoking: Quit ~ 3-4 months prior (fall 2023), smoked 1.5 ppd since teen until quit. alcohol intake: never substance use type: does not use ROS ROS Narrative 10 systems were reviewed with pertinent positives as noted in the HPI above. Physical Exam Const alert and no apparent distress General Appearance: cooperative HEENT normocephalic and head/scalp atraumatic HEENT Narrative: Dry mucous membranes Eyes EOMs intact bilaterally and conjunctivae normal Neck supple General: trachea midline Chest inspection of chest normal Resp normal respiratory effort Auscultation: Negative for rales, rhonchi or wheezes Cardio regular rate and regular rhythm GI soft to palpation and non-tender Extremity no clubbing, cyanosis or edema Skin no rashes or lesions noted Neuro CN's II-XII intact bilaterally, moves all extremities and no focal motor deficits Psych Mood & Affect: flat affect Lab / Micro Data 10/28/24 18:45 10/29/24 09:00 Labs: Laboratory Results - last 24 hr 10/28/24 18:45: WBC 22.9 H, RBC 4.09 L, Hgb 12.7 L, Hct 37.3 L, MCV 91.2, MCH 31.1, MCHC 34.0, RDW Std Deviation 62.7 H, RDW Coeff of Francis 19.1 H, Plt Count 142 L, MPV 12.0, Immature Gran % (Auto) 1.400 H, Neut % (Auto) 83.0 H, Lymph % (Auto) 5.6 L, [place] % (Auto) 8.4, Eos % (Auto) 1.4, Baso % (Auto) 0.2, Absolute Neuts (auto) 19.0 H, Absolute Lymphs (auto) 1.28, Nucleated RBC % 0, Differential Comment SEE COMMENT, Diff Path Review May foll, Platelet Estimate ADEQUATE, RBC Morphology N CHROM, Anisocytosis RARE, Macrocytosis RARE, Ovalocytes RARE, Sodium 128 L, Potassium 4.5, Chloride 98, Carbon Dioxide 12.4 L , Anion Gap 17 H, BUN 25 H, Creatinine 1.33 H, Est GFR (MDRD) Non-Af 62, BUN/Creatinine Ratio 18.8, Glucose 338 H, Hemoglobin A1c 6.7, Lactic Acid 4.0 H* , Calcium 9.2, Total Bilirubin 1.86 H, AST 48 H, ALT 23, Alkaline Phosphatase 274 H, Total Protein 5.9, Albumin 2.5 L, Globulin 3.4, Albumin/Globulin Ratio 0.7 L, Lipase 45 10/28/24 19:45: Urine Color Red, Urine Clarity Cloudy, Urine pH 6.5, Ur Specific [place] 1.015, Urine Protein 500 H, Urine Glucose (UA) 50 H, Urine Ketones 5 H, Urine Occult Blood 250 H, Urine Nitrite Negative, Urine Bilirubin 1 H, Urine Urobilinogen Normal, Ur Leukocyte Esterase 500 H, Urine RBC > 100 SEEN, Urine WBC >100 SEEN, Ur Squamous Epith Cells 5-10 SEEN, Amorphous Sediment 1+ URATE, Urine Bacteria 1+, Urine Mucus 0 SEEN, Urine Osmolality 484 10/29/24 02:00: Serum Osmolality 292, Triglycerides 83, Cholesterol 132, LDL Cholesterol, Calc 83, VLDL Cholesterol 17, HDL Cholesterol 33 L, Cholesterol/HDL Ratio 4.04 Rhythm Strip Rhythm Strip: Sinus Rhythm Rate: 83 Ectopy: None Imaging Radiology Impression Abdomen/Pelvis CT 10/28/24 18:35 IMPRESSION: 1. No acute abdominopelvic finding. 2. Findings of liver cirrhosis with portal hypertension including splenomegaly, large varices and portal colopathy. No ascites. 3. Slight interval progression of the T10 and T11 vertebral body compression fracture deformities. Reading Location: [id number] Charges/Coding Visit Charges Inpatient E&M: 74164 Init Hosp L3
--- NOTE | 2024-10-29 08:08 | PCM.CONS.U ---
Assessment & Plan Assessment/Plan (1) History of uric acid staghorn calculus: (2) Obesity (BMI 30.0-34.9): (3) Hyponatremia: (4) Sepsis: QUALIFIERS: Sepsis acute organ dysfunction status: with acute organ dysfunction Sepsis type: sepsis due to unspecified organism Severe sepsis acute organ dysfunction type: unspecified Severe sepsis shock status: with septic shock Qualified Code(s): A41.9 - Sepsis, unspecified organism; R65.21 - Severe sepsis with septic shock PLAN: Staghorn calculus in the left kidney stent into the in place. Continue with antibiotics support. Will call the patient's insurance company and see if they will authorize out of network care with me locally otherwise if they do not authorize that the patient will need to follow-up with a urologist in his network. HPI Consult Data Date of Consult: 10/29/24 HPI Narrative Reason for Consultation: Staghorn calculus and infection HPI Narrative: FRANKLIN ARCHULETA, is a gentleman who has a large stone complicated stone staghorn calculus in the left kidney when I saw the patient last time we just placed a stent he still has a stent in and out at this point he has been readmitted the ICU for sepsis and UTI and a staghorn calculus I do not see any intervention to reason the changes stent we can leave the stent in place continue with IV antibiotics and support till he recovers. Patient was given instructions to follow-up with urologist in his network as an outpatient. At this point continue with supportive management. There is no hydronephrosis. The stent is in good position. At this point is not surgically stable to undergo any kidney stone surgery but once he gets better he will need to follow-up as an outpatient with a urologist in his network. Currently no emergency intervention is necessary from my standpoint [facility] Medical History Chronic hypotension Obesity (BMI 30-39.9) Chronic back pain ISABEL (acute kidney injury) Hypotension Hepatic encephalopathy Hyperbilirubinemia Liver cirrhosis secondary to HARRIS (nonalcoholic steatohepatitis) HLD (hyperlipidemia) HTN (hypertension) Thrombocytopenia Chronic anemia Former tobacco use Diabetes mellitus, type 2 ABBY on CPAP Back pain Home Medications ?Medication ?Instructions ?Recorded ?Last Taken ?Type lidocaine 5 % topical patch 3 patch topical DAILY #90 ea 09/02/24 Unknown Rx pantoprazole 40 mg tablet,delayed 40 mg PO BID #60 tabs 09/02/24 Unknown Rx release rifaximin 550 mg tablet (Xifaxan) 550 mg PO BID #60 tabs 09/02/24 Unknown Rx cyclobenzaprine 5 mg tablet 5 mg PO TID PRN muscle spasm #0 09/14/24 Unknown Rx tabs insulin lispro 100 unit/mL See Protocol subcut ACHS #0 mL 09/14/24 Unknown Rx subcutaneous pen (Humalog KwikPen (U-100) Insulin) acetaminophen 500 mg tablet 1,000 mg PO Q8 PRN fever or pain 10/28/24 Unknown History calcium 500 mg (as 1 tab PO DAILY 10/28/24 Unknown History carbonate)-vitamin D3 5 mcg (200 unit) tablet (Oyster Shell Calcium-Vitamin D3) folic acid 1 mg tablet 1 mg PO DAILY 10/28/24 Unknown History furosemide 40 mg tablet 40 mg PO DAILY 10/28/24 Unknown History ibuprofen 800 mg tablet 800 mg PO TID PRN PRN fever or pain 10/28/24 Unknown History Allergy/AdvReac Type Severity Reaction Status Date / Time No Known Allergies Allergy Verified 09/04/24 21:19 Family History Mother Heart disease Hypertension CAD (coronary artery disease) Myocardial infarction Father Hypertension Heart disease Heart failure Surgical History History of tonsillectomy and adenoidectomy Social History household members: significant other Smoking Status: Former smoker how long ago did patient quit smoking: Quit ~ 3-4 months prior (fall 2023), smoked 1.5 ppd since teen until quit. alcohol intake: never substance use type: does not use Physical Exam Const alert and oriented x3 General Appearance: cooperative HEENT normocephalic and head/scalp atraumatic Eyes PERRL and EOMs intact bilaterally Neck supple, no JVD and no carotid bruits Resp normal respiratory effort, normal air movement and clear to auscultation bilaterally Cardio regular rate and no murmurs GI normal to inspection, nondistended, normoactive bowel sounds and soft to palpation Extremity normal capillary refill General Extremity: no tenderness to palpation of joints or extremities; Negative for edema Skin no rashes or lesions noted and no wounds General Skin Exam: no breakdown Neuro CN's II-XII intact bilaterally Psych affect normal Appearance: appropriate Lab / Micro Data 10/28/24 18:45 10/29/24 09:00 Labs: Laboratory Results - last 24 hr 10/28/24 18:45: WBC 22.9 H, RBC 4.09 L, Hgb 12.7 L, Hct 37.3 L, MCV 91.2, MCH 31.1, MCHC 34.0, RDW Std Deviation 62.7 H, RDW Coeff of Francis 19.1 H, Plt Count 142 L, MPV 12.0, Immature Gran % (Auto) 1.400 H, Neut % (Auto) 83.0 H, Lymph % (Auto) 5.6 L, [place] % (Auto) 8.4, Eos % (Auto) 1.4, Baso % (Auto) 0.2, Absolute Neuts (auto) 19.0 H, Absolute Lymphs (auto) 1.28, Nucleated RBC % 0, Differential Comment SEE COMMENT, Diff Path Review May foll, Platelet Estimate ADEQUATE, RBC Morphology N CHROM, Anisocytosis RARE, Macrocytosis RARE, Ovalocytes RARE, Sodium 128 L, Potassium 4.5, Chloride 98, Carbon Dioxide 12.4 L, Anion Gap 17 H, BUN 25 H, Creatinine 1.33 H, Est GFR (MDRD) Non-Af 62, BUN/Creatinine Ratio 18.8, Glucose 338 H, Hemoglobin A1c 6.7, Lactic Acid 4.0 H*, Calcium 9.2, Total Bilirubin 1.86 H, AST 48 H, ALT 23, Alkaline Phosphatase 274 H, Total Protein 5.9, Albumin 2.5 L, Globulin 3.4, Albumin/Globulin Ratio 0.7 L, Lipase 45 10/28/24 19:45: Urine Color Red, Urine Clarity Cloudy, Urine pH 6.5, Ur Specific [place] 1.015, Urine Protein 500 H, Urine Glucose (UA) 50 H, Urine Ketones 5 H, Urine Occult Blood 250 H, Urine Nitrite Negative, Urine Bilirubin 1 H, Urine Urobilinogen Normal, Ur Leukocyte Esterase 500 H, Urine RBC > 100 SEEN, Urine WBC >100 SEEN, Ur Squamous Epith Cells 5-10 SEEN, Amorphous Sediment 1+ URATE, Urine Bacteria 1+, Urine Mucus 0 SEEN, Urine Osmolality 484 10/29/24 02:00: Serum Osmolality 292, Triglycerides 83, Cholesterol 132, LDL Cholesterol, Calc 83, VLDL Cholesterol 17, HDL Cholesterol 33 L, Cholesterol/HDL Ratio 4.04 Rhythm Strip Rhythm Strip: Sinus Rhythm Rate: 83 Ectopy: None Imaging Radiology Impression Abdomen/Pelvis CT 10/28/24 18:35 IMPRESSION: 1. No acute abdominopelvic finding. 2. Findings of liver cirrhosis with portal hypertension including splenomegaly, large varices and portal colopathy. No ascites. 3. Slight interval progression of the T10 and T11 vertebral body compression fracture deformities. Reading Location: [id number]
[2024-10-29] MEDS: Lactobacillis Acidophilus 1 CAP PO ×3 (08:09→17:46)
[2024-10-29] MEDS: Ascorbic Acid 500 MG Tablet 1000 MG PO ×2 (08:09→17:46)
[2024-10-29] MEDS: Folic Acid 1 MG Tablet PO (08:09)
[2024-10-29] MEDS: Zinc Sulfate 50 mg zinc (220 mg) ORAL capsule PO (08:09)
[2024-10-29] MEDS: Cholecalciferol (Vit D3) 125 MCG CAPSULE (5,000 UNITS) PO (08:10)
[2024-10-29] MEDS: Lidocaine 5% Patch 3 PATCH TOPICAL (08:10)
[2024-10-29 09:08] LABS: Absolute Lymphocyte Count 1.06 X10^3/uL (0.83-4.51); Absolute Neutrophil Count 19.8 X10^3/uL (2.0-7.7); Basophil# 0.12 X10^3/uL; Basophil% 0.5 % (0-1); Eosinophil# 0.27 X10^3/uL; Eosinophils% 1.2 % (0-5); Hemoglobin 11.1 g/dL (13.0-16.5); Lymphocyte # 1.06 X10^3/ul (0.83-4.51); Lymphocyte % 4.6 % (19-41); Mean Corp Hgb Conc 33.6 g/dL (32-36); Mean Corpuscular Hgb 31.1 pg (27.0-32.0); Mean Corpuscular Volume 92.4 fL (80-94); Mean Platelet Vol. 12.3 fl (6.2-12.0); Monocyte# 1.72 X10^3/uL; Monocyte% 7.4 % (0-10); NRBC Flagged by Analyzer 0 % (0-5); Neutrophil # 19.76 X10^3/uL (2.7-7.7); Neutrophil % 85.5 % (47-70); POSITIVE COUNT YES; POSITIVE DIFFERENTIAL YES; POSITIVE MORPHOLOGY YES; Platelet Count 81 K/mm3 (150-450); RBC Distribution Width CV 19.5 % (11.6-14.6); RBC Distribution Width SD 65.4 fl (35.1-43.9); Red Blood Count 3.57 M/mm3 (4.6-6.2); White Blood Count 23.1 K/mm3 (4.4-11.0)
--- NOTE | 2024-10-29 09:47 | CASEMGMT ---
Discharge Planning A list of?SNF providers including quality and resource use data and consistent with the patient's preferred geographic region, medical needs, and insurance network was created in [employer]Port Guide.? This list was provided to the SW. India Platt Discharge Planning Asst.
[2024-10-29 09:50] LABS: Anion Gap 11 (5-15); BUN 22 mg/dL (4-19); BUN/Creat Ratio 20.7 RATIO (10-20); Calcium,Total 9.1 mg/dL (7.6-11.0); Chloride 105 mmol/L (98-108); Creatinine, Serum 1.08 mg/dL (0.70-1.20); EST Glomerular Filtration Rate 80 (>60); Estimated Creatinine Clearance 82.91 ml/min (50-250); Glucose 214 mg/dL (70-99); Potassium 3.3 mmol/L (3.3-5.1); Sodium Level 132 mmol/L (133-145)
--- NOTE | 2024-10-29 10:14 | CASEMGMT ---
DAYSI HUGHES Assessment Face to Face with patient for initial transition planning/care coordination assessment. RN SAUL introduced self and role at [facility], pt voices understanding. Pt is A&Ox2 to self and time only. Pt does not currently know where he is at. Pt states that it is OK to contact his family. TC to pt Tyler (Mary), no answer. TC to Pt son (Leopoldo), no answer. TC to pt Ex- (Sylvia). Sylvia answers the phone and states that she is willing to help answer this RN SAUL questions for assessment. Care providers, pharmacy, and demographics verified. Admitting dx: Sepsis, UTI, Diarrhea and Abdominal pain LACE Strata: 3 PCP: No PCP. Pt has a PCP list in the room and has been given and educated about this during previous visits Specialists: Denies Preferred Pharmacy: [facility] Insurance: [place] [employer] Prescription Benefit: Yes LNOK: Mary Robertson (Tyler), Leopoldo Wiggins (Son), Sylvia (Ex-) Living Arrangements: Pt lives in a 2 story home with a basement and a FFSU now (per Sylvia) with his Ex-, Ex-'s and Landlord (Jerald), Brother in law (Vikas) and friend (Regine). ADLs/IADLs: Per Sylvia, pt requires assistance. Transportation: Jerald Marques's son DME: Sylvia states that the pt's BGM is either missing or broken. Sylvia states that the pt has a cane, FWW, shower chair, and electric W/C. HHC/SNF: Hx of while the pt lived in [place]. Pt has a recent History at [facility] Care Plan: TBD. Anticipate SNF at the time of DC. Per ICU rounds, the pt was agreeable to going to a SNF for further rehab to help him return to [place] before returning home. Current 6-Click score is 13. PT is pending. Sylvia agrees with the tentative plan and states that if [facility] staff needs any further assistance that [facility] staff can contact her if need be. Per ED SW, an APS referral has been made due to poor living conditions. See note. Sylvia denies further questions at this time. Care Management to follow. Tayla Galloway RN, CM
[2024-10-29] MEDS: rifAXIMin 550 MG Tablet PO (10:42)
[2024-10-29] MEDS: Pantoprazole Sodium 40 MG in 0.9% Normal Saline (100mL MB+) 100 ML 330 MG IV (10:42)
[2024-10-29 11:11] LABS: Differential Indicated SCAN CRITERIA MET
[2024-10-29 11:50] LABS: Anisocytosis 1+; Platelet Estimate MOD DEC (ADEQ)
[2024-10-29 11:51] LABS: Polychromasia 1+
[2024-10-29] MEDS: Insulin Lispro 100 UNIT/ML INSULN.PEN SC ×3 (12:08→23:36)
[2024-10-29 12:33] LABS: Bedside Glucose 166 mg/dL (74-106)
--- NOTE | 2024-10-29 13:25 | CM.ED ---
Social work Marcell from [employer] (ph: [phone]) called this SW today with update regarding [facility] referral made yesterday. Marcell stated due to patient being 59 years old, patient's referral was screened out. However, Marcell stated mailing patient resources to try helping in some way. Amna Hidalgo, SALES AND MARKETING REPRESENTATIVE, [employer]
[2024-10-29] MEDS: Ondansetron 4 MG/2 ML Vial IV (13:36)
--- NOTE | 2024-10-29 15:17 | CASEMGMT ---
Social Woek- SW attempted to meet with pt to provide a list of SNF providers including quality and resource use data and consistent with the patient?s preferred geographic region, medical needs, and insurance network were provided from the CarePort Guide. Pt did not respond when SW attempted to wake pt. Bedside nurse reports that pt did not engage when she attempted to wake pt to take his meal order as well. SW will remain available to follow. JANETTE Valladares
[2024-10-29] MEDS: Vancomycin IV 1,000 MG/200 ML BAG 200 MG IV (15:49)
[2024-10-29 20:29] LABS: Bedside Glucose 209 mg/dL (74-106)
[2024-10-29 20:34] LABS: Allen Test Positive; Base Excess -10 mmol/L (-2 to +2); Bicarbonate 15.2 mmol/L (22-26); Blood Gas Specimen Type ART; Mode Not entered; O2 Delivery Device Room Air; PO2 67 mmHG (75-100); SITE L Radial; SO2 93 % (95-99); Total Carbon Dioxide 16 mmol/L; pCO2 25.1 mmHg (35-45); pH 7.39 (7.35-7.45)
[2024-10-29] MEDS: CHLORHEXIDINE GLUC 2% CLOTH 1 EACH TOWELETTE TOPICAL (23:00)
[2024-10-29] MEDS: Lactulose 20 GM/30 ML UDC 15 GM RC (23:10)
[2024-10-29 23:27] LABS: Bedside Glucose 191 mg/dL (74-106)
[2024-10-29 23:59] LABS: Bedside Glucose 194 mg/dL (74-106)
[2024-10-30] VITALS (24 sets, daily range): BP systolic 96–130; BP diastolic 57–87; PULSE 77–94; RESP 12–20; TEMP 36.4–36.7; O2SAT 94–99; BMI 30.2
[2024-10-30] MEDS: Vancomycin IV 1,000 MG/200 ML BAG 200 MG IV (03:35)
[2024-10-30] MEDS: Enoxaparin 30 MG/0.3 ML Syringe SC (05:55)
[2024-10-30] MEDS: Piperacil/Tazobactam 3.375 GM in 0.9% Normal Saline (50mL MB+) 50 ML IV ×3 (05:56→20:59)
[2024-10-30] MEDS: Insulin Lispro 100 UNIT/ML INSULN.PEN SC ×4 (05:56→23:31)
[2024-10-30 06:35] LABS: Absolute Lymphocyte Count 1.35 X10^3/uL (0.83-4.51); Absolute Neutrophil Count 27.2 X10^3/uL (2.0-7.7); Basophil# 0.15 X10^3/uL; Basophil% 0.5 % (0-1); Eosinophil# 0.17 X10^3/uL; Eosinophils% 0.5 % (0-5); Hematocrit 33.4 % (40-54); Hemoglobin 11.5 g/dL (13.0-16.5); Lymphocyte # 1.35 X10^3/ul (0.83-4.51); Lymphocyte % 4.3 % (19-41); Mean Corp Hgb Conc 34.4 g/dL (32-36); Mean Corpuscular Hgb 31.6 pg (27.0-32.0); Mean Corpuscular Volume 91.8 fL (80-94); Mean Platelet Vol. 11.6 fl (6.2-12.0); Monocyte# 2.33 X10^3/uL; Monocyte% 7.3 % (0-10); NRBC Flagged by Analyzer 0 % (0-5); Neutrophil # 27.18 X10^3/uL (2.7-7.7); Neutrophil % 85.6 % (47-70); POSITIVE COUNT YES; POSITIVE DIFFERENTIAL YES; POSITIVE MORPHOLOGY YES; Platelet Count 121 K/mm3 (150-450); RBC Distribution Width CV 19.8 % (11.6-14.6); RBC Distribution Width SD 64.5 fl (35.1-43.9); Red Blood Count 3.64 M/mm3 (4.6-6.2)
[2024-10-30 06:42] LABS: Differential Indicated SCAN CRITERIA MET; White Blood Count 31.7 K/mm3 (4.4-11.0)
[2024-10-30 07:05] LABS: Bedside Glucose 236 mg/dL (74-106)
[2024-10-30 07:45] LABS: Anion Gap 12 (5-15); BUN 26 mg/dL (4-19); BUN/Creat Ratio 20.6 RATIO (10-20); Calcium,Total 9.3 mg/dL (7.6-11.0); Carbon Dioxide 15.2 mmol/L (21.0-32.0); Chloride 105 mmol/L (98-108); Creatinine, Serum 1.25 mg/dL (0.70-1.20); EST Glomerular Filtration Rate 67 (>60); Estimated Creatinine Clearance 72.43 ml/min (50-250); Glucose 239 mg/dL (70-99); Potassium 3.8 mmol/L (3.3-5.1); Sodium Level 133 mmol/L (133-145)
[2024-10-30] MEDS: Pantoprazole Sodium 40 MG in 0.9% Normal Saline (100mL MB+) 100 ML 330 MG IV (07:51)
--- NOTE | 2024-10-30 08:20 | PCM.PN.HOSP ---
Subjective Subjective Yesterday he was drowsy and arousable to voice today he arouses to pain, his ammonia has gone up despite the institution of lactulose yesterday afternoon, though he has only received 1 dose. Objective Data Objective Data Vital Signs: Vital Signs Temp Pulse Resp BP Pulse Ox O2 Del Method 97.9 F 80 17 96/63 97 Room Air 10/30/24 03:00 10/30/24 07:00 10/30/24 07:00 10/30/24 07:00 10/30/24 07:00 10/30/24 07:00 Oxygen Delivery Method Room Air Weight: 204 lb 5.896 oz Body Mass Index (BMI) 30.2 Intake & Output: Intake and Output for Last 24 Hours 10/29/24 10/30/24 10/31/24 03:59 03:59 03:59 Intake Total 3050 / 3050 2100 / 2100 200 / 200 Output Total 250 / 250 600 / 600 Balance 3050 / 3050 1850 / 1850 -400 / -400 Lab / Micro Data 10/30/24 06:15 10/30/24 06:15 Labs: Laboratory Results - last 24 hr 10/29/24 09:00: WBC 23.1 H, RBC 3.57 L, Hgb 11.1 L, Hct 33.0 L, MCV 92.4, MCH 31.1, MCHC 33.6, RDW Std Deviation 65.4 H, RDW Coeff of Francis 19.5 H, Plt Count 81 L, MPV 12.3 H, Immature Gran % (Auto) 0.800, Neut % (Auto) 85.5 H, Lymph % (Auto) 4.6 L, [place] % (Auto) 7.4, Eos % (Auto) 1.2, Baso % (Auto) 0.5, Absolute Neuts (auto) 19.8 H, Absolute Lymphs (auto) 1.06, Nucleated RBC % 0, Platelet Estimate MOD DEC, Polychromasia 1+, Anisocytosis 1+, Sodium 132 L, Potassium 3.3, Chloride 105, Carbon Dioxide 17.0 L, Anion Gap 11, BUN 22 H, Creatinine 1.08, Estim Creat Clear Calc 82.91, Est GFR (MDRD) Non-Af 80, BUN/Creatinine Ratio 20.7 H, Glucose 214 H, Calcium 9.1, Cortisol AM Sample 10.20 10/29/24 12:03: POC Glucose 166 H 10/29/24 17:45: POC Glucose 191 H 10/29/24 18:20: Ammonia 103.0 H 10/29/24 19:46: POC Glucose 209 H 10/29/24 23:20: POC Glucose 194 H 10/30/24 05:53: POC Glucose 236 H 10/30/24 06:15: WBC 31.7 H*, RBC 3.64 L, Hgb 11.5 L, Hct 33.4 L, MCV 91.8, MCH 31.6, MCHC 34.4, RDW Std Deviation 64.5 H, RDW Coeff of Francis 19.8 H, Plt Count 121 L, MPV 11.6, Immature Gran % (Auto) 1.800 H, Neut % (Auto) 85.6 H, Lymph % (Auto) 4.3 L, [place] % (Auto) 7.3, Eos % (Auto) 0.5, Baso % (Auto) 0.5, Absolute Neuts (auto) 27.2 H, Absolute Lymphs (auto) 1.35, Nucleated RBC % 0, Sodium 133, Potassium 3.8, Chloride 105, Carbon Dioxide 15.2 L, Anion Gap 12, BUN 26 H, Creatinine 1.25 H, Estim Creat Clear Calc 72.43, Est GFR (MDRD) Non-Af 67, BUN/Creatinine Ratio 20.6 H, Glucose 239 H, Calcium 9.3 10/30/24 06:27: Ammonia 130.0 H ABG Data ABG results: ABG 10/29/24 20:29 Specimen Type ART Sample Site L Radial pH 7.39 Bicarbonate Actual 15.2 L Total CO2 16 Base Excess -10 L O2 Saturation 93 L O2 % 21.0 ABG pCO2 25.1 L ABG pO2 67 L Ulices Test Positive O2 Delivery Device Room Air Vent Mode Not entered Radiography Diagnostic Testing: Radiology Impression Renal Ultrasound 10/29/24 00:52 IMPRESSION: 1. No hydronephrosis. 2. Staghorn calculus in the lower pole of the left kidney is better visualized on the recent CT scan. 3. Left-sided ureteral stent noted. Reading Location: [facility] Rhythm Strip Rhythm Strip: Sinus Rhythm Rate: 83 Ectopy: None Physical Exam Narrative General: Drowsy HEENT: Atraumatic, PERRLA, normocephalic Oral: Dry mucosa Neck: Supple, No JVD Lungs: Diminished, Normal air movement, No rhonchi, No wheeze, No rales Cardiovascular: Regular rate, Regular Rhythm, Normal S1, Normal S2, No murmurs Abdomen: Soft, Non Tender, Non-Distended, No Hepato-splenomegaly Extremities: No edema, Capillary Refill Less than 3 Seconds Skin: No rashes, No breakdown Musculoskeletal: No Tenderness to Palpation of Joints or Extremities Neurological: No focal neurological deficits, moves all extremities Psych/Mental Status: Flat Assessment & Plan Assessment/Plan (1) Sepsis: QUALIFIERS: Sepsis type: sepsis due to unspecified organism Sepsis acute organ dysfunction status: with acute organ dysfunction Severe sepsis acute organ dysfunction type: unspecified Severe sepsis shock status: with septic shock Qualified Code(s): A41.9 - Sepsis, unspecified organism; R65.21 - Severe sepsis with septic shock (2) Acute UTI: PLAN: Plan 1. Sepsis due to UTI ? He does have a staghorn calculus ? Urology says there is nothing to do acutely ? Continue with broad-spectrum antibiotics ? Cultures are pending ? Appreciate cash applications coordinator assistance 2. Acute metabolic cephalopathy with nonalcoholic cirrhotic liver disease possible hepatic encephalopathy/chronic anemia and thrombocytopenia ? Due to sepsis in combination with his elevated ammonia in the setting of liver disease ? Continue with lactulose ? Stool cultures are pending ? Hyponatremia is resolved ? Hold his Lasix 3. GERD ? Stable ? Continue with PPI 4. DM2 ? Accu-Cheks ? Insulin ? Will monitor make adjustments as necessary DVT: SCDs Charges/Coding Visit Charges Inpatient E&M: 67097 Subs Hosp L2
--- NOTE | 2024-10-30 09:11 | RAD_ITS ---
PROCEDURE: ABDOMEN SINGLE VIEW (PORTABLE) 10/30/2024 REASON FOR EXAM: NG PLACEMENT TECHNIQUE: Single view abdomen. COMPARISON: Bowel gas pattern is increased over usual. FINDINGS: There is an NG tube entering the stomach. The tip approaches the fundus in satisfactory position. Bowel gas: Bowel gas Calcifications: None. Bones: Unremarkable Other: RAD/Abdomen Single View (Portable) IMPRESSION: NG tube in satisfactory position. Reading Location: [facility]
[2024-10-30] MEDS: Lactulose 20 GM/30 ML UDC 15 GM NG ×3 (09:55→20:58)
[2024-10-30] MEDS: rifAXIMin 550 MG Tablet PO ×2 (09:55→20:58)
[2024-10-30] MEDS: Folic Acid 1 MG Tablet PO (09:56)
[2024-10-30] MEDS: Cholecalciferol (Vit D3) 125 MCG CAPSULE (5,000 UNITS) PO (09:56)
[2024-10-30] MEDS: Midodrine HCl 5 MG Tablet 10 MG PO ×3 (09:56→16:47)
--- NOTE | 2024-10-30 09:56 | CON.PCM.UR_ITS ---
HPI Consult Data Date of Consult: 10/30/24 HPI Narrative Reason for Consultation: Follow-up on infected staghorn calculus HPI Narrative: FRANKLIN ARCHULETA, is a 59 male who I saw several weeks ago with an infected staghorn calculus a stent was placed at that point he was given instructed to follow-up outpatient with a urologist in his network to deal and address the infected staghorn calculi as he represented back here to the hospital with an infection and rising white blood count, he has a stent in place his white count still keeps going higher he is fairly stable in the ICU,, however his white count spiked up to 31,000 today discussed case with hospitalist they are discussed they are thinking maybe perhaps he has C. difficile colitis with a see what those culture show I think is very likely that he might need a nephrostomy tube to help maximize drainage from the left kidney from this infection. The services are not available on the weekend here at [facility]. We discussed transferring to other hospital for nephrostomy tube placement. We could also have a nephrostomy tube placed on Friday if radiology services are available. For now we will continue with broad-spectrum antibiotics await culture results but if things progress I think he is going to need nephrostomy tube we will continue to follow. [facility] Medical History Chronic hypotension Obesity (BMI 30-39.9) Chronic back pain ISABEL (acute kidney injury) Hypotension Hepatic encephalopathy Hyperbilirubinemia Liver cirrhosis secondary to HARRIS (nonalcoholic steatohepatitis) HLD (hyperlipidemia) HTN (hypertension) Thrombocytopenia Chronic anemia Former tobacco use Diabetes mellitus, type 2 ABBY on CPAP Back pain Home Medications ?Medication ?Instructions ?Recorded ?Last Taken ?Type lidocaine 5 % topical patch 3 patch topical DAILY #90 ea 09/02/24 Unknown Rx pantoprazole 40 mg tablet,delayed 40 mg PO BID #60 tab s 09/02/24 Unknown Rx release rifaximin 550 mg tablet (Xifaxan) 550 mg PO BID #60 ta bs 09/02/24 Unknown Rx cyclobenzaprine 5 mg tablet 5 mg PO TID PRN muscle spa sm #0 09/14/24 Unknown Rx tabs insulin lispro 100 unit/mL See Protocol subcut ACHS #0 mL 09/14/24 Unknown Rx subcutaneous pen (Humalog KwikPen (U-100) Insulin) acetaminophen 500 mg tablet 1,000 mg PO Q8 PRN fever o r pain 10/28/24 Unknown History calcium 500 mg (as 1 tab PO DAILY 10/28/24 Unkn own History carbonate)-vitamin D3 5 mcg (200 unit) tablet (Oyster Shell Calcium-Vitamin D3) folic acid 1 mg tablet 1 mg PO DAILY 10/28/24 Unkno wn History furosemide 40 mg tablet 40 mg PO DAILY 10/28/24 Unkn own History ibuprofen 800 mg tablet 800 mg PO TID PRN PRN fever or pain 10/28/24 Unknown History Allergy/AdvReac Type Severity Reaction Status Date / Time No Known Allergies Allergy Verified 09/04/24 21:19 Family History Mother Heart disease Hypertension CAD (coronary artery disease) Myocardial infarction Father Hypertension Heart disease Heart failure Surgical History History of tonsillectomy and adenoidectomy Social History household members: significant other Smoking Status: Former smoker how long ago did patient quit smoking: Quit ~ 3-4 months prior (fall 2023), smoked 1.5 ppd since teen until quit. alcohol intake: never substance use type: does not use Lab / Micro Data 10/30/24 06:15 10/30/24 06:15 Labs: Laboratory Results - last 24 hr 10/29/24 09:00: WBC 23.1 H, RBC 3.57 L, Hgb 11.1 L, Hct 33.0 L, MCV 92.4, MCH 31.1, MCHC 33.6, RDW Std Deviation 65.4 H, RDW Coeff of Francis 19.5 H, Plt Count 81 L, MPV 12.3 H, Immature Gran % (Auto) 0.800, Neut % (Auto) 85.5 H, Lymph % (Auto) 4.6 L, Reagan % (Auto) 7.4, Eos % (Auto) 1.2, Baso % (Auto) 0.5, Absolute Neuts (auto) 19.8 H, Absolute Lymphs (auto) 1.06, Nucleated RBC % 0, Platelet Estimate MOD DEC, Polychromasia 1+, Anisocytosis 1+ 10/29/24 12:03: POC Glucose 166 H 10/29/24 17:45: POC Glucose 191 H 10/29/24 18:20: Ammonia 103.0 H 10/29/24 19:46: POC Glucose 209 H 10/29/24 23:20: POC Glucose 194 H 10/30/24 05:53: POC Glucose 236 H 10/30/24 06:15: WBC 31.7 H*, RBC 3.64 L, Hgb 11.5 L, Hct 33.4 L, MCV 91.8, MCH 31.6, MCHC 34.4, RDW Std Deviation 64.5 H, RDW Coeff of Francis 19.8 H, Plt Count 121 L, MPV 11.6, Immature Gran % (Auto) 1.800 H, Neut % (Auto) 85.6 H, Lymph % (Auto) 4.3 L, Reagan % (Auto) 7.3, Eos % (Auto) 0.5, Baso % (Auto) 0.5, Absolute Neuts (auto) 27.2 H, Absolute Lymphs (auto) 1.35, Nucleated RBC % 0, Sodium 133, Potassium 3.8, Chloride 105, Carbon Dioxide 15.2 L, Anion Gap 12, BUN 26 H, C reatinine 1.25 H, Estim Creat Clear Calc 72.43, Est GFR (MDRD) Non-Af 67, B UN/Creatinine Ratio 20.6 H, Glucose 239 H, Calcium 9.3 10/30/24 06:27: Ammonia 130.0 H ABG Data ABG results: ABG 10/29/24 20:29 Specimen Type ART Sample Site L Radial pH 7.39 Bicarbonate Actual 15.2 L Total CO2 16 Base Excess -10 L O2 Saturation 93 L O2 % 21.0 ABG pCO2 25.1 L ABG pO2 67 L Ulices Test Positive O2 Delivery Device Room Air Vent Mode Not entered Rhythm Strip Rhythm Strip: Sinus Rhythm Rate: 83 Ectopy: None Imaging Radiology Impression Renal Ultrasound 10/29/24 00:52 IMPRESSION: 1. No hydronephrosis. 2. Staghorn calculus in the lower pole of the left kidney is better visualized on the recent CT scan. 3. Left-sided ureteral stent noted. Reading Location: [facility] X-[facility] 10/30/24 09:11 IMPRESSION: NG tube in satisfactory position. Reading [facility]
[2024-10-30] MEDS: Lactobacillis Acidophilus 1 CAP PO ×4 (09:57→20:58)
[2024-10-30] MEDS: Ascorbic Acid 500 MG Tablet 1000 MG PO ×2 (09:57→16:47)
[2024-10-30] MEDS: Zinc Sulfate 50 mg zinc (220 mg) ORAL capsule PO (09:57)
--- NOTE | 2024-10-30 10:37 | PCM.PN.TICU ---
Objective Data Objective Data Vital Signs: Vital Signs Last response Temperature 36.6 C 10/30/24 10:00 Temperature Source Temporal 10/30/24 10:00 Pulse Rate 82 10/30/24 10:00 Pulse Strength Normal (2+) 10/30/24 10:00 Respiratory Rate 14 10/30/24 10:00 Respiratory Effort Accessory Muscle Use 10/30/24 08:00 Respiratory Depth Normal 10/30/24 08:00 Respiratory Pattern Normal 10/30/24 08:00 Blood Pressure 115/70 10/30/24 10:00 Blood Pressure Mean 85 10/30/24 10:00 Blood Pressure Source Monitor 10/30/24 10:00 Blood Pressure Position Semi-Fowlers 10/30/24 10:00 Blood Pressure Location Left Arm 10/30/24 10:00 Pulse Ox 97 10/30/24 10:00 Oxygen Delivery Method Room Air 10/30/24 10:00 I&O: I&O Last 24 Hours 10/29/24 10/29/24 10/30/24 11:59 23:59 11:59 Intake Total 3850 / 4100 250 / 4100 410 / 410 Output Total 0 / 250 250 / 250 600 / 600 Balance 3850 / 3850 0 / 3850 -190 / -190 I&O: Total Stay 10/28/24 17:10 thru 10/30/24 09:57 Intake Total 5510 Output Total 850 Balance 4660 Current Meds Ordered / Administered: Current meds ordered / Administered Generic Name Dose Route Start Last Admin Trade Name Frederickq PRN Reason Stop Dose Admin Acetaminophen 650 mg 10/29/24 02:00 Acetaminophen 325 Mg Tablet PO Q8H PRN Pain 1-5/10 or Fever Ascorbic Acid 1,000 mg 10/29/24 08:00 10/30/24 09:57 Ascorbic Acid 500 Mg Tablet PO 1,000 mg BIDCM KRYSTIN Administration Chlorhexidine Gluconate 1 each 10/30/24 10:00 10/29/24 23:00 Chlorhexidine Gluc 2% Cloth 1 Each Towelette TOPICAL 1 each DAILY KRYSTIN Administration Cholecalciferol 125 mcg 10/29/24 10:00 10/30/24 09:56 Cholecalciferol (Vit D3) 125 Mcg Capsule (5,000 Units) PO 125 mcg DAILY KRYSTIN Administration Cyclobenzaprine HCl 5 mg 10/29/24 02:00 Cyclobenzaprine Hcl 5 Mg Tablet PO TID PRN muscle spasm Folic Acid 1 mg 10/29/24 08:00 10/30/24 09:56 Folic Acid 1 Mg Tablet PO 1 mg BREAKFAST KRYSTIN Administration Vancomycin IV-PHARMACY TO DOSE 500 mls @ 250 mls/hr 10/29/24 02:00 1 each/ Sodium Chloride IV PRN PRN Rx to Dose Protocol Piperacillin Sod/Tazobactam 50 mls @ 12.5 mls/hr 10/29/24 02:00 10/30/24 09:57 Sod 3.375 gm/ Sodium Chloride IV Infused Q8 KRYSTIN Infusion Pantoprazole Sodium 40 mg/ 110 mls @ 330 mls/hr 10/29/24 10:00 10/30/24 08:28 Sodium Chloride IV Infused Q24 KRYSTIN Infusion Sodium Chloride 100 mls @ 15 mls/hr 10/29/24 02:01 IV .Q6H40M PRN Saline Flush Sodium Chloride 100 mls @ 15 mls/hr 10/29/24 02:01 IV .Q6H40M PRN Additional IVPB Infusion Vancomycin HCl 1,000 mg in 200 mls @ 200 mls/hr 10/29/24 15:00 10/30/24 04:35 Vancomycin IV Infused Q12H KRYSTIN Infusion Insulin Human Lispro 0 unit 10/29/24 12:00 10/30/24 05:56 Insulin Lispro 100 Unit/Ml Insuln.Pen SC 3 units Q6 KRYSTIN Administration Protocol Lactulose 15 gm 10/30/24 14:00 10/30/24 09:55 Lactulose 20 Gm/30 Ml Udc NG 15 gm TID KRYSTIN Administration Lidocaine 3 patch 10/29/24 10:00 10/30/24 10:14 Lidocaine 5% Patch TOPICAL Not Given DAILY [facility] Protocol Midodrine 10 mg 10/29/24 02:00 10/30/24 09:56 Midodrine Hcl 5 Mg Tablet PO 10 mg TIDCM KRYSTIN Administration Morphine Sulfate 2 mg 10/29/24 02:00 10/29/24 02:14 Morphine 2 Mg/Ml Syringe IV 2 mg Q4H PRN PRN Administration Pain Score 6-10 Ondansetron HCl 4 mg 10/29/24 13:31 10/29/24 13:36 Ondansetron 4 Mg/2 Ml Vial IV 4 mg Q6H PRN PRN Administration NAUSEA Rifaximin 550 mg 10/29/24 10:00 10/30/24 09:55 Rifaximin 550 Mg Tablet PO 550 mg BID KRYSTIN Administration Sodium Chloride 10 - 40 ml 10/29/24 02:01 10/29/24 23:10 0.9% Saline Lock 10 Ml Syringe IV 10 ml UD PRN Administration SALINE FLUSH Vancomycin Protocol 1 lab 10/30/24 12:30 Vancomycin Trough/Random Due MC 10/30/24 16:30 DAILY KRYSTIN Zinc Sulfate 50 mg 10/29/24 10:00 10/30/24 09:57 Zinc Sulfate 50 Mg Zinc (220 Mg) Oral Capsule PO 50 mg DAILY KRYSTIN Administration Lab / Micro Data Attestation: I reviewed the patient's lab results. 10/30/24 06:15 10/30/24 06:15 Labs: Laboratory Results - last 24 hr 10/29/24 09:00: WBC 23.1 H, RBC 3.57 L, Hgb 11.1 L, Hct 33.0 L, MCV 92.4, MCH 31.1, MCHC 33.6, RDW Std Deviation 65.4 H, RDW Coeff of Francis 19.5 H, Plt Count 81 L, MPV 12.3 H, Immature Gran % (Auto) 0.800, Neut % (Auto) 85.5 H, Lymph % (Auto) 4.6 L, Maverick % (Auto) 7.4, Eos % (Auto) 1.2, Baso % (Auto) 0.5, Absolute Neuts (auto) 19.8 H, Absolute Lymphs (auto) 1.06, Nucleated RBC % 0, Platelet Estimate MOD DEC, Polychromasia 1+, Anisocytosis 1+ 10/29/24 12:03: POC Glucose 166 H 10/29/24 17:45: POC Glucose 191 H 10/29/24 18:20: Ammonia 103.0 H 10/29/24 19:46: POC Glucose 209 H 10/29/24 23:20: POC Glucose 194 H 10/30/24 05:53: POC Glucose 236 H 10/30/24 06:15: WBC 31.7 H*, RBC 3.64 L, Hgb 11.5 L, Hct 33.4 L, MCV 91.8, MCH 31.6, MCHC 34.4, RDW Std Deviation 64.5 H, RDW Coeff of Francis 19.8 H, Plt Count 121 L, MPV 11.6, Immature Gran % (Auto) 1.800 H, Neut % (Auto) 85.6 H, Lymph % (Auto) 4.3 L, Maverick % (Auto) 7.3, Eos % (Auto) 0.5, Baso % (Auto) 0.5, Absolute Neuts (auto) 27.2 H, Absolute Lymphs (auto) 1.35, Nucleated RBC % 0, Sodium 133, Potassium 3.8, Chloride 105, Carbon Dioxide 15.2 L, Anion Gap 12, BUN 26 H, Creatinine 1.25 H, Estim Creat Clear Calc 72.43, Est GFR (MDRD) Non-Af 67, BUN/Creatinine Ratio 20.6 H, Glucose 239 H, Calcium 9.3 10/30/24 06:27: Ammonia 130.0 H Micro: Microbiology 10/29/24 02:01 Urine, Clean Catch Urine Culture - Preliminary Culture exhibits no growth. 10/30/24 06:46 Stool Stool Lactoferrin - Final ABG Data ABG results: ABG 10/29/24 20:29 Specimen Type ART Sample Site L Radial pH 7.39 Bicarbonate Actual 15.2 L Total CO2 16 Base Excess -10 L O2 Saturation 93 L O2 % 21.0 ABG pCO2 25.1 L ABG pO2 67 L Ulices Test Positive O2 Delivery Device Room Air Vent Mode Not entered Rhythm Strip Rhythm Strip: Sinus Rhythm Rate: 83 Ectopy: None Imaging Radiology Impression KUB X-Ray 10/30/24 09:11 IMPRESSION: NG tube in satisfactory position. Reading [facility] Assessment and Plan . Assessment and plan: IMPRESSIONS: 1. Sepsis suspected of urinary source given history of ureteral obstruction/ prior stent placement. Hemodynamics are improving, midodrine, Abx, follow up urine cultures and Urology consult. 2. Encephalopathy, presumed HE given history of HARRIS cirrhosis/chronic hypotension. Unable to start lactulose due to NGT access issue 3. History of tobacco dependency in remission/diabetes mellitus. Complicates care, management, recovery and prognosis. Continue supportive care as noted above. If no form of intervention is planned by urology, the patient's diet can be advanced and sliding scale insulin coverage initiated. RECOMMENDATIONS: 1. NGT placement a priority- would favor IR or endoscopic placement if staff are unable to place bedside 2. Cont. empiric broad-spectrum antimicrobials, FU culture results. 3. Continue scheduled midodrine. 4. Urology consultation. 5. start lactulose. rifaximin once enteral route possible 6. Initiate sliding scale insulin coverage once diet is advanced. Critical Care Time: 50 minutes The entirety of this encounter was done via Telemedicine Physical Exam Const Orientation / Consciousness: obtunded HEENT head/scalp atraumatic Eyes PERRL Neck full ROM and no JVD Resp normal respiratory effort Cardio regular rate Subjective Subjective More lethargic today, staff still trying to place NGT so remains NPO
[2024-10-30 11:51] LABS: Bedside Glucose 194 mg/dL (74-106)
--- NOTE | 2024-10-30 12:49 | CASEMGMT ---
Social Work- Pt is minimally responsive and unable to discuss plans for discharge. Pt bedside nurse reports that there are discussions of possible transfer, therefore, discharge disposition is unknown at this time. SW remains available to follow. JANETTE Valladares
[2024-10-30] MEDS: Menthol/Lanolin/Calamine/Znox 113 GM Tube 1 APPLIC TOPICAL ×2 (14:00→20:58)
[2024-10-30] MEDS: Vancomycin 125 MG/5 ML Susp PO.SYRINGE NG ×3 (15:08→23:31)
[2024-10-30 15:39] LABS: Vancomycin, Trough Level 20.5 ug/mL (5.0-15.0)
--- NOTE | 2024-10-30 15:52 | PCM.RX.CS ---
Consult Antibiotic Management Pharmacy has been consulted to manage selected antibiotic: Vancomycin Type of Intervention Type of Consult: Follow-up Labs Labs: Sodium 133 mmol/L (133-145) 10/30/24 06:15 Potassium 3.8 mmol/L (3.3-5.1) 10/30/24 06:15 Chloride 105 mmol/L (98-108) 10/30/24 06:15 Carbon Dioxide 15.2 mmol/L (21.0-32.0) L 10/30/24 06:15 Anion Gap 12 (5-15) 10/30/24 06:15 BUN 26 mg/dL (4-19) H 10/30/24 06:15 Creatinine 1.25 mg/dL (0.70-1.20) H 10/30/24 06:15 Est GFR (MDRD) Non-Af 67 (>60) 10/30/24 06:15 BUN/Creatinine Ratio 20.6 RATIO (10-20) H 10/30/24 06:15 Glucose 239 mg/dL (70-99) H 10/30/24 06:15 Vancomycin Trough 20.5 ug/mL (5.0-15.0) H 10/30/24 15:05 Microbiology Microbiology: Microbiology 10/30/24 06:46 Stool Stool Lactoferrin - Final 10/30/24 06:46 Stool Enteric Bacteriology - Final 10/30/24 06:46 Stool C. difficile GDH Antigen & Toxins - Final Toxigenic C. difficile 10/30/24 06:46 Stool Clostridioides difficile (PCR) - Final 10/29/24 02:01 Urine, Clean Catch Urine Culture - Preliminary Culture exhibits no growth. Pharmacy Plan for Drug Dosing Pharmacy Plan for Drug Dosing: VANCOMYCIN LEVEL RECEIVED Current Vancomycin Dose: 1000MG Q12 Number of Doses Received: 3 Vancomycin Level: 20.5 MG/DL Hours Since Last Dose: 11.5 Renal Function: SCr 1.25mg/dL, CrCl 72 mL/min Renal Function Trend: slightly improved Lab/Micro: blood and urine cx pending Vancomycin Plan/Comments: 11.5 hour trough is slightly supratherapeutic at 20.5 mg/dL (goal 15-20). Will decrease dose to 750mg and wait a couple of hours to start since level was just slightly above range. Will get a trough in 2 days per policy. Pending Level: 11/01/24 @ 0430 Pharmacy Service will continue to monitor and adjust dosing as required.
[2024-10-30] MEDS: Vancomycin HCl 750 MG in 0.9% Normal Saline (250mL Bag) 250 ML 250 MG IV (16:47)
[2024-10-30 17:14] LABS: Bedside Glucose 193 mg/dL (74-106)
--- NOTE | 2024-10-30 20:48 | EX.PCM.CON.G ---
HPI Consult Data Date of Consult: 10/30/24 HPI Narrative Reason for Consultation: Cirrhosis HPI Narrative: FRANKLIN ARCHULETA, is a 59 M with a past medical history of DM, BOYER cirrhosis (MELD 16 to 20, recurrent ascites, chronic hyperammonemia, thrombocytopenia, chronic hypotension), CKD stage 2-3. He has a recent h/o Left Staghorn Calculus and underwent cystoscopy with Left ureteral stent placement by Dr. Rascon. Blood cultures returning positive for MRSA. He recently paracentesis on September 29, 2024 with ~4.5L of yellow-colored fluid removed. He presented back to [facility] ER complaining of abdominal pain, back pain and diarrhea. He currently has severe Leukocytosis of 31K; with 1.4% Left-shift, Lactic Acidosis. He is in the ICU with a dx of Sepsis with Septic Shock. CT evidence of stable Left double-J stent with Large Dystrophic Calcifications within the Left renal pelvis, with no evidence of hydronephrosis in addition to findings of cirrhosis with protal hypertension including splenomegaly, large varices and portal colopathy, without ascites. He was also identified as having C.diff infection and is currently on Vancomycin IV and oral. He is also on Zosyn for urosepsis. [facility], [facility] Medical History Chronic hypotension Obesity (BMI 30-39.9) Chronic back pain ISAEBL (acute kidney injury) Hypotension Hepatic encephalopathy Hyperbilirubinemia 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) HLD (hyperlipidemia) HTN (hypertension) Thrombocytopenia Chronic anemia Former tobacco use Diabetes mellitus, type 2 ABBY on CPAP Back pain Home Medications ?Medication ?Instructions ?Recorded ?Last Taken ?Type lidocaine 5 % topical patch 3 patch topical DAILY #90 ea 09/02/24 Unknown Rx pantoprazole 40 mg tablet,delayed 40 mg PO BID #60 tabs 09/02/24 Unknown Rx release rifaximin 550 mg tablet (Xifaxan) 550 mg PO BID #60 tabs 09/02/24 Unknown Rx cyclobenzaprine 5 mg tablet 5 mg PO TID PRN muscle spasm #0 09/14/24 Unknown Rx tabs insulin lispro 100 unit/mL See Protocol subcut ACHS #0 mL 09/14/24 Unknown Rx subcutaneous pen (Humalog KwikPen (U-100) Insulin) acetaminophen 500 mg tablet 1,000 mg PO Q8 PRN fever or pain 10/28/24 Unknown History calcium 500 mg (as 1 tab PO DAILY 10/28/24 Unknown History carbonate)-vitamin D3 5 mcg (200 unit) tablet (Oyster Shell Calcium-Vitamin D3) folic acid 1 mg tablet 1 mg PO DAILY 10/28/24 Unknown History furosemide 40 mg tablet 40 mg PO DAILY 10/28/24 Unknown History ibuprofen 800 mg tablet 800 mg PO TID PRN PRN fever or pain 10/28/24 Unknown History Allergy/AdvReac Type Severity Reaction Status Date / Time No Known Allergies Allergy Verified 09/04/24 21:19 Family History Mother Heart disease Hypertension CAD (coronary artery disease) Myocardial infarction Father Hypertension Heart disease Heart failure Surgical History History of tonsillectomy and adenoidectomy Social History household members: significant other Smoking Status: Former smoker how long ago did patient quit smoking: Quit ~ 3-4 months prior (fall 2023), smoked 1.5 ppd since teen until quit. alcohol intake: never substance use type: does not use ROS ROS Narrative 10 systems were reviewed with pertinent positives as noted in the HPI above. Physical Exam Const Orientation / Consciousness: obtunded HEENT head/scalp atraumatic Eyes PERRL Neck full ROM and no JVD Resp normal respiratory effort Cardio regular rate Lab / Micro Data 10/30/24 06:15 10/30/24 06:15 Labs: Laboratory Results - last 24 hr 10/29/24 17:45: POC Glucose 191 H 10/29/24 23:20: POC Glucose 194 H 10/30/24 05:53: POC Glucose 236 H 10/30/24 06:15: WBC 31.7 H*, RBC 3.64 L, Hgb 11.5 L, Hct 33.4 L, MCV 91.8, MCH 31.6, MCHC 34.4, RDW Std Deviation 64.5 H, RDW Coeff of Francis 19.8 H, Plt Count 121 L, MPV 11.6, Immature Gran % (Auto) 1.800 H, Neut % (Auto) 85.6 H, Lymph % (Auto) 4.3 L, [place] % (Auto) 7.3, Eos % (Auto) 0.5, Baso % (Auto) 0.5, Absolute Neuts (auto) 27.2 H, Absolute Lymphs (auto) 1.35, Nucleated RBC % 0, Sodium 133, Potassium 3.8, Chloride 105, Carbon Dioxide 15.2 L, Anion Gap 12, BUN 26 H, Creatinine 1.25 H, Estim Creat Clear Calc 72.43, Est GFR (MDRD) Non-Af 67, BUN/Creatinine Ratio 20.6 H, Glucose 239 H, Calcium 9.3 10/30/24 06:27: Ammonia 130.0 H 10/30/24 11:32: POC Glucose 194 H 10/30/24 15:05: Vancomycin Trough 20.5 H 10/30/24 16:55: POC Glucose 193 H Micro: Microbiology 10/30/24 06:46 Stool Stool Lactoferrin - Final 10/30/24 06:46 Stool Enteric Bacteriology - Final 10/30/24 06:46 Stool C. difficile GDH Antigen & Toxins - Final Toxigenic C. difficile 10/30/24 06:46 Stool Clostridioides difficile (PCR) - Final 10/29/24 02:01 Urine, Clean Catch Urine Culture - Preliminary Culture exhibits no growth. Rhythm Strip Rhythm Strip: Sinus Rhythm Rate: 83 Ectopy: None Imaging Radiology Impression KUB X-Ray 10/30/24 09:11 IMPRESSION: NG tube in satisfactory position. Reading [facility] Assessment & Plan Assessment/Plan (1) Sepsis: QUALIFIERS: Sepsis acute organ dysfunction status: with acute organ dysfunction Sepsis type: sepsis due to unspecified organism Severe sepsis acute organ dysfunction type: unspecified Severe sepsis shock status: with septic shock Qualified Code(s): A41.9 - Sepsis, unspecified organism; R65.21 - Severe sepsis with septic shock (2) Acute hypotension: (3) Leukocytosis: QUALIFIERS: Leukocytosis type: unspecified Qualified Code(s): D72.829 - Elevated white blood cell count, unspecified (4) Acidosis, lactic: (5) Acute UTI: (6) History of uric acid staghorn calculus: (7) Diarrhea: QUALIFIERS: Diarrhea type: presumed infectious Qualified Code(s): R19.7 - Diarrhea, unspecified (8) Chronic abdominal pain: (9) Chronic back pain: QUALIFIERS: Back pain laterality: unspecified Back pain location: back pain in unspecified location Qualified Code(s): M54.9 - Dorsalgia, unspecified; G89.29 - Other chronic pain (10) Hyponatremia: (11) Obesity (BMI 30.0-34.9): (12) Clostridium difficile colitis: PLAN: Plan 59 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 He currently has a meld of 28 which carries a 20% mortality in the next 90 days. He is also a child Gonzalez class C due to sepsis (urosepsis, cdiff) and acute kidney injury. He also has chronic hypotension, anemia, thrombocytopenia. Cdiff colitis- Broad-spectrum antibiotic use probrably predisposed him to Cdiff. His wbc is increasing which is not a good sign. This puts him at risk for toxic megacolon. individuals to selective elimination of healthy gut microbiota and overgrowth of Clostridium difficile (C. difficile) in the gastrointestinal gaviota. He should be on Vancomyocin 125mg PO QID and Metronidiazole 500mg IV Q12. Severe Hypoammonemia- Secondary to urosepsis and cdiff colitis. His ammonia will be very difficult to control until his sepsis is undercontrol. Continue lactulose until he develops a Non-gapped metabolic acidosis with a goal bicarbonate of 18. Cirrhosis- Check his INR/PT/PTT- high risk for DIC. Hyperbilirubinemia of 1.83 mg/dL, with AST 48 U/L, ALT 23 U/L and Alkaline Phosphatase 274 U/L all present on admission - but improved since his recent previous admission. He underwent outpatient ultrasound-guided paracentesis on September 29, 2024 with ~4.5L of yellow-colored fluid removed with no ascites on CT this admission. Charges/Coding Visit Charges Inpatient E&M: 83743 Init Hosp L3
[2024-10-30 22:11] LABS: International Normalized Ratio 2.5; Prothrombin Time (Protime)PT. 27.1 SECONDS (11.7-14.9)
[2024-10-30 22:12] LABS: Partial Thromboplast Time 41.4 Seconds (24.1-36.2)
[2024-10-30] MEDS: 0.9% Normal Saline (1000mL) 1,000 ML 75 ML IV (22:15)
[2024-10-30] MEDS: 0.9% Saline Lock 10 ML Syringe IV (23:31)
[2024-10-30] MEDS: metroNIDAZOLE 500 MG/100 ML BAG 100 MG IV (23:56)
[2024-10-31] VITALS (15 sets, daily range): BP systolic 105–142; BP diastolic 43–87; PULSE 86–100; RESP 13–22; TEMP 36.5–37.1; O2SAT 92–98
[2024-10-31] MEDS: Menthol/Lanolin/Calamine/Znox 113 GM Tube 1 APPLIC TOPICAL ×3 (05:10→21:43)
[2024-10-31] MEDS: Insulin Lispro 100 UNIT/ML INSULN.PEN SC ×3 (05:10→17:25)
[2024-10-31] MEDS: Vancomycin 125 MG/5 ML Susp PO.SYRINGE NG ×3 (05:10→19:44)
[2024-10-31] MEDS: Vancomycin HCl 750 MG in 0.9% Normal Saline (250mL Bag) 250 ML 250 MG IV ×2 (05:10→19:44)
[2024-10-31] MEDS: Piperacil/Tazobactam 3.375 GM in 0.9% Normal Saline (50mL MB+) 50 ML IV ×3 (06:15→21:34)
[2024-10-31 07:21] LABS: Absolute Lymphocyte Count 1.66 X10^3/uL (0.83-4.51); Absolute Neutrophil Count 22.8 X10^3/uL (2.0-7.7); Basophil# 0.13 X10^3/uL; Basophil% 0.5 % (0-1); Eosinophil# 0.42 X10^3/uL; Eosinophils% 1.5 % (0-5); Hemoglobin 12.1 g/dL (13.0-16.5); Lymphocyte # 1.66 X10^3/ul (0.83-4.51); Lymphocyte % 5.9 % (19-41); Mean Corp Hgb Conc 33.6 g/dL (32-36); Mean Corpuscular Hgb 31.2 pg (27.0-32.0); Mean Corpuscular Volume 92.8 fL (80-94); Mean Platelet Vol. 12.9 fl (6.2-12.0); Monocyte# 2.23 X10^3/uL; Monocyte% 7.9 % (0-10); NRBC Flagged by Analyzer 0 % (0-5); Neutrophil # 22.82 X10^3/uL (2.7-7.7); Neutrophil % 80.3 % (47-70); POSITIVE DIFFERENTIAL YES; POSITIVE MORPHOLOGY YES; Platelet Count 122 K/mm3 (150-450); RBC Distribution Width CV 19.7 % (11.6-14.6); RBC Distribution Width SD 66.8 fl (35.1-43.9); Red Blood Count 3.88 M/mm3 (4.6-6.2); White Blood Count 28.4 K/mm3 (4.4-11.0)
[2024-10-31 07:25] LABS: Differential Indicated SCAN CRITERIA MET
--- NOTE | 2024-10-31 07:30 | PCM.CONS.B ---
Consult Date of Consult: 10/31/24 Reason for Consult 59-year-old male with staghorn calculus in the left kidney he does have a stent in place CAT scan did not show any hydronephrosis I had thoughts of placing a nephrostomy tube because he continued to have a high white count but talking to the hospitalist he was concerned about C. difficile. C. difficile did come back positive this probably explains explains his high white blood count I think and hold off on the IV abdomen putting the nephrostomy tube does have a stent in place that was in place too long ago. Will continue to follow but I do not think a nephrostomy tube at this point given the new evidence is necessary while treating for C. difficile and see if this will resolve his white blood count.
[2024-10-31 07:36] LABS: ALB/GLOB Ratio 0.8 RATIO (0.9-2.4); AST(SGOT) 31 U/L (<=37); Alanine Aminotransfer ALT/SGPT 20 U/L (<=46); Albumin, Serum 2.5 g/dL (3.5-5.0); Alkaline Phosphatase 243 U/L (40-129); Anion Gap 11 (5-15); BUN 26 mg/dL (4-19); BUN/Creat Ratio 21.7 RATIO (10-20); Carbon Dioxide 15.3 mmol/L (21.0-32.0); Chloride 110 mmol/L (98-108); Creatinine, Serum 1.18 mg/dL (0.70-1.20); EST Glomerular Filtration Rate 72 (>60); Estimated Creatinine Clearance 76.73 ml/min (50-250); Glucose 193 mg/dL (70-99); Potassium 3.3 mmol/L (3.3-5.1); Protein, Total 5.6 g/dL (5.9-8.4); Sodium Level 136 mmol/L (133-145); Total Bilirubin 2.18 mg/dL (0.00-1.30)
[2024-10-31] MEDS: Ascorbic Acid 500 MG Tablet 1000 MG PO (07:41)
[2024-10-31] MEDS: Acetaminophen 325 MG Tablet 650 MG PO (07:41)
[2024-10-31] MEDS: Cholecalciferol (Vit D3) 125 MCG CAPSULE (5,000 UNITS) PO (07:42)
[2024-10-31] MEDS: Folic Acid 1 MG Tablet PO (07:42)
[2024-10-31] MEDS: CHLORHEXIDINE GLUC 2% CLOTH 1 EACH TOWELETTE TOPICAL (07:43)
[2024-10-31] MEDS: Zinc Sulfate 50 mg zinc (220 mg) ORAL capsule PO (07:43)
[2024-10-31] MEDS: Lactulose 20 GM/30 ML UDC 15 GM NG ×2 (07:43→21:31)
[2024-10-31] MEDS: Lactobacillis Acidophilus 1 CAP PO ×3 (07:43→21:32)
[2024-10-31] MEDS: Midodrine HCl 5 MG Tablet 10 MG PO ×3 (07:43→19:44)
[2024-10-31] MEDS: rifAXIMin 550 MG Tablet PO ×2 (07:44→21:31)
[2024-10-31 07:55] LABS: Anisocytosis 1+
[2024-10-31 08:29] LABS: International Normalized Ratio 2.5; Prothrombin Time (Protime)PT. 27.2 SECONDS (11.7-14.9)
[2024-10-31 08:30] LABS: Partial Thromboplast Time 42.7 Seconds (24.1-36.2)
--- NOTE | 2024-10-31 09:04 | PN.CC_ITS ---
Objective Data Objective Data Vital Signs: Vital Signs Last response 3 Temperature 36.7 C 10/31/24 04:00 Temperature Source Temporal 10/31/24 04:00 Pulse Rate 97 10/31/24 09:00 Pulse Strength Normal (2+) 10/31/24 08:34 Respiratory Rate 16 10/31/24 09:00 Respiratory Effort Normal, Non-Labored 10/31/24 08:00 Respiratory Depth Normal 10/31/24 08:00 Respiratory Pattern Normal 10/31/24 08:00 Blood Pressure 131/77 H 10/31/24 09:00 Blood Pressure Mean 95 10/31/24 09:00 Blood Pressure Source Monitor 10/31/24 09:00 Blood Pressure Position Semi-Fowlers 10/31/24 09:00 Blood Pressure Location Right Arm 10/31/24 09:00 Pulse Ox 96 10/31/24 09:00 Oxygen Delivery Method Room Air 10/31/24 09:00 I&O: I&O Last 24 Hours 3 10/30/24 10/30/24 10/31/24 11:59 23:59 11:59 Intake Total 410 / 940 530 / 940 415 / 415 Output Total 600 / 1475 875 / 1475 Balance -190 / -535 -345 / -535 415 / 415 I&O: Total Stay 3 10/28/24 17:10 thru 10/31/24 06:14 Intake Total 6455 Output Total 1725 Balance 4730 Current Meds Ordered / Administered: Current meds ordered / Administered 3 Generic Name Dose Route Start Last Admin Trade Name Frederickq PRN Reason Stop Dose Admin Acetaminophen 650 mg 10/29/24 02:00 10/31/24 07:41 Acetaminophen 325 Mg Tablet PO 650 mg Q8H PRN Administration Pain 1-5/10 or Fever Ascorbic Acid 1,000 mg 10/29/24 08:00 10/31/24 07:41 Ascorbic Acid 500 Mg Tablet PO 1,000 mg BIDCM KRYSTIN Administration Calamine/Phenol 1 applic 10/30/24 14:00 10/31/24 05:10 Menthol/Lanolin/Calamine/Znox 113 Gm Tube TOPICAL 1 applic TID KRYSTIN Administration Protocol Chlorhexidine Gluconate 1 each 10/30/24 10:00 10/31/24 07:43 Chlorhexidine Gluc 2% Cloth 1 Each Towelette TOPICAL 1 each DAILY KRYSTIN Administration Cholecalciferol 125 mcg 10/29/24 10:00 10/31/24 07:42 Cholecalciferol (Vit D3) 125 Mcg Capsule (5,000 Units) PO 125 mcg DAILY KRYSTIN Administration Cyclobenzaprine HCl 5 mg 10/29/24 02:00 Cyclobenzaprine Hcl 5 Mg Tablet PO TID PRN muscle spasm Folic Acid 1 mg 10/29/24 08:00 10/31/24 07:42 Folic Acid 1 Mg Tablet PO 1 mg BREAKFAST KRYSTIN Administration Vancomycin IV-PHARMACY TO DOSE 500 mls @ 250 mls/hr 10/29/24 02:00 1 each/ Sodium Chloride IV PRN PRN Rx to Dose Protocol Piperacillin Sod/Tazobactam 50 mls @ 12.5 mls/hr 10/29/24 02:00 10/31/24 06:15 Sod 3.375 gm/ Sodium Chloride IV 12.5 mls/hr Q8 KRYSTIN Administration Pantoprazole Sodium 40 mg/ 110 mls @ 330 mls/hr 10/29/24 10:00 10/30/24 08:28 Sodium Chloride IV Infused Q24 KRYSTIN Infusion Sodium Chloride 100 mls @ 15 mls/hr 10/29/24 02:01 IV .Q6H40M PRN Saline Flush Sodium Chloride 100 mls @ 15 mls/hr 10/29/24 02:01 IV .Q6H40M PRN Additional IVPB Infusion Vancomycin HCl 750 mg/ Sodium 265 mls @ 250 mls/hr 10/30/24 17:00 10/31/24 06:14 Chloride IV Infused Q12H KRYSTIN Infusion Sodium Chloride 1,000 mls @ 75 mls/hr 10/30/24 22:00 10/30/24 22:15 IV 75 mls/hr .[id number] KRYSTIN Administration Metronidazole 500 mg in 100 mls @ 100 mls/hr 10/30/24 23:45 10/31/24 00:56 Flagyl IV Infused Q12 KRYSTIN Infusion Insulin Human Lispro 0 unit 10/29/24 12:00 10/31/24 05:10 Insulin Lispro 100 Unit/Ml Insuln.Pen SC 1 units Q6 KRYSTIN Administration Protocol Lactulose 15 gm 10/30/24 22:00 10/31/24 07:43 Lactulose 20 Gm/30 Ml Udc NG 15 gm BID KRYSTIN Administration Lidocaine 3 patch 10/29/24 10:00 10/30/24 10:14 Lidocaine 5% Patch TOPICAL Not Given DAILY [facility] Protocol Midodrine 10 mg 10/29/24 02:00 10/31/24 07:43 Midodrine Hcl 5 Mg Tablet PO 10 mg TIDCM KRYSTIN Administration Morphine Sulfate 2 mg 10/29/24 02:00 10/29/24 02:14 Morphine 2 Mg/Ml Syringe IV 2 mg Q4H PRN PRN Administration Pain Score 6-10 Ondansetron HCl 4 mg 10/29/24 13:31 10/29/24 13:36 Ondansetron 4 Mg/2 Ml Vial IV 4 mg Q6H PRN PRN Administration NAUSEA Rifaximin 550 mg 10/29/24 10:00 10/31/24 07:44 Rifaximin 550 Mg Tablet PO 550 mg BID KRYSTIN Administration Sodium Chloride 10 - 40 ml 10/29/24 02:01 10/30/24 23:31 0.9% Saline Lock 10 Ml Syringe IV 20 ml UD PRN Administration SALINE FLUSH Vancomycin HCl 125 mg 10/30/24 14:50 10/31/24 05:10 Vancomycin 125 Mg/5 Ml Susp Po.Syringe NG 125 mg Q6 KRYSTIN Administration Vancomycin Protocol 1 lab 11/01/24 02:30 Vancomycin Trough/Random Due MC 11/01/24 06:30 DAILY [facility] Zinc Sulfate 50 mg 10/29/24 10:00 10/31/24 07:43 Zinc Sulfate 50 Mg Zinc (220 Mg) Oral Capsule PO 50 mg DAILY KRYSTIN Administration Lab / Micro Data 10/31/24 05:56 10/31/24 05:56 Labs: Laboratory Results - last 24 hr 10/30/24 11:32: POC Glucose 194 H 10/30/24 15:05: Vancomycin Trough 20.5 H 10/30/24 16:55: POC Glucose 193 H 10/30/24 21:46: PT 27.1 H, INR 2.5, APTT 41.4 H 10/31/24 05:56: WBC 28.4 H, RBC 3.88 L, Hgb 12.1 L, Hct 36.0 L, MCV 92.8, MCH 31.2, MCHC 33.6, RDW Std Deviation 66.8 H, RDW Coeff of Francis 19.7 H, Plt Count 122 L, MPV 12.9 H, Immature Gran % (Auto) 3.900 H, Neut % (Auto) 80.3 H, Lymph % (Auto) 5.9 L, [place] % (Auto) 7.9, Eos % (Auto) 1.5, Baso % (Auto) 0.5, Absolute Neuts (auto) 22.8 H, Absolute Lymphs (auto) 1.66, Nucleated RBC % 0, Anisocytosis 1+, PT Cancelled, INR Cancelled, APTT Cancelled, Sodium 136, Potassium 3.3, Chloride 110 H, Carbon Dioxide 15.3 L, Anion Gap 11, BUN 26 H, Creatinine 1.18, Estim Creat Clear Calc 76.73, Est GFR (MDRD) Non-Af 72, B UN/Creatinine Ratio 21.7 H, Glucose 193 H, Calcium 9.0, Total Bilirubin 2.18 H, AST 31, ALT 20, Alkaline Phosphatase 243 H, Total Protein 5.6 L, Albumin 2.5 L, Globulin 3.0, Albumin/Globulin Ratio 0.8 L 10/31/24 07:50: PT 27.2 H, INR 2.5, APTT 42.7 H Micro: Microbiology 10/29/24 01:00 Blood Culture (Wb) - Anticubital Left Blood Culture - Preliminary No growth in 48 hours. 10/29/24 00:32 Blood Culture (Wb) - Right Wrist Blood Culture - Preliminary No growth in 48 hours. 10/30/24 06:46 Stool Stool Lactoferrin - Final 10/30/24 06:46 Stool Enteric Bacteriology - Final 10/30/24 06:46 Stool C. difficile GDH Antigen & Toxins - Final Toxigenic C. difficile 10/30/24 06:46 Stool Clostridioides difficile (PCR) - Final 10/29/24 02:01 Urine, Clean Catch Urine Culture - Preliminary Culture exhibits no growth. Rhythm Strip Rhythm Strip: Sinus Rhythm Rate: 83 Ectopy: None Imaging Radiology Impression KUB X-Ray 10/30/24 09:11 IMPRESSION: NG tube in satisfactory position. Reading [facility] Assessment and Plan . Assessment and plan: Critical Care Time: The entirety of this encounter was done via Telemedicine Subjective Subjective remains deeply encephalopathic/ unresponsive. NGT successfully placed Urology input reviewed- their input favors C.diff+ as primary disturbance, urine cultures NGTD.
[2024-10-31] MEDS: Pantoprazole Sodium 40 MG in 0.9% Normal Saline (100mL MB+) 100 ML 330 MG IV (09:35)
--- NOTE | 2024-10-31 09:52 | PN.HOSP_ITS ---
Subjective Subjective Becoming more alert today with initiation of p.o. vancomycin for C. difficile. Continue with lactulose via his NG tube Objective Data Objective Data Vital Signs: Vital Signs Temp Pulse Resp BP Pulse Ox O2 Del Method 98.1 F 97 16 131/77 H 96 Room Air 10/31/24 04:00 10/31/24 09:00 10/31/24 09:00 10/31/24 09:00 10/31/24 09:00 10/31/24 09:00 Oxygen Delivery Method Room Air Weight: 204 lb 5.896 oz Body Mass Index (BMI) 30.2 Intake & Output: Intake and Output for Last 24 Hours 10/30/24 10/31/24 11/01/24 03:59 03:59 03:59 Intake Total 2100 / 2100 1040 / 1040 265 / 265 Output Total 250 / 250 1475 / 1475 Balance 1850 / 1850 -435 / -435 265 / 265 Lab / Micro Data 10/31/24 05:56 10/31/24 05:56 Labs: Laboratory Results - last 24 hr 10/30/24 11:32: POC Glucose 194 H 10/30/24 15:05: Vancomycin Trough 20.5 H 10/30/24 16:55: POC Glucose 193 H 10/30/24 21:46: PT 27.1 H, INR 2.5, APTT 41.4 H 10/31/24 05:56: WBC 28.4 H, RBC 3.88 L, Hgb 12.1 L, Hct 36.0 L, MCV 92.8, MCH 31.2, MCHC 33.6, RDW Std Deviation 66.8 H, RDW Coeff of Francis 19.7 H, Plt Count 122 L, MPV 12.9 H, Immature Gran % (Auto) 3.900 H, Neut % (Auto) 80.3 H, Lymph % (Auto) 5.9 L, [place] % (Auto) 7.9, Eos % (Auto) 1.5, Baso % (Auto) 0.5, Absolute Neuts (auto) 22.8 H, Absolute Lymphs (auto) 1.66, Nucleated RBC % 0, Anisocytosis 1+, PT Cancelled, INR Cancelled, APTT Cancelled, Sodium 136, Potassium 3.3, Chloride 110 H, Carbon Dioxide 15.3 L, Anion Gap 11, BUN 26 H, Creatinine 1.18, Estim Creat Clear Calc 76.73, Est GFR (MDRD) Non-Af 72, B UN/Creatinine Ratio 21.7 H, Glucose 193 H, Calcium 9.0, Total Bilirubin 2.18 H, AST 31, ALT 20, Alkaline Phosphatase 243 H, Total Protein 5.6 L, Albumin 2.5 L, Globulin 3.0, Albumin/Globulin Ratio 0.8 L 10/31/24 07:50: PT 27.2 H, INR 2.5, APTT 42.7 H Micro: Microbiology 10/29/24 01:00 Blood Culture (Wb) - Anticubital Left Blood Culture - Preliminary No growth in 48 hours. 10/29/24 00:32 Blood Culture (Wb) - Right Wrist Blood Culture - Preliminary No growth in 48 hours. 10/30/24 06:46 Stool Stool Lactoferrin - Final 10/30/24 06:46 Stool Enteric Bacteriology - Final 10/30/24 06:46 Stool C. difficile GDH Antigen & Toxins - Final Toxigenic C. difficile 10/30/24 06:46 Stool Clostridioides difficile (PCR) - Final 10/29/24 02:01 Urine, Clean Catch Urine Culture - Preliminary Culture exhibits no growth. Rhythm Strip Rhythm Strip: Sinus Rhythm Rate: 83 Ectopy: None Physical Exam Narrative General: Drowsy HEENT: Atraumatic, PERRLA, normocephalic Oral: Dry mucosa Neck: Supple, No JVD Lungs: Diminished, Normal air movement, No rhonchi, No wheeze, No rales Cardiovascular: Regular rate, Regular Rhythm, Normal S1, Normal S2, No murmurs Abdomen: Soft, Non Tender, Non-Distended, No Hepato-splenomegaly Extremities: No edema, Capillary Refill Less than 3 Seconds Skin: No rashes, No breakdown Musculoskeletal: No Tenderness to Palpation of Joints or Extremities Neurological: No focal neurological deficits, moves all extremities Psych/Mental Status: Flat Assessment & Plan Assessment/Plan (1) Sepsis: QUALIFIERS: Sepsis type: sepsis due to unspecified organism S epsis acute organ dysfunction status: with acute organ dysfunction Severe sepsis acute organ dysfunction type: unspecified Severe sepsis shock status: w ith septic shock Qualified Code(s): A41.9 - Sepsis, unspecified organism; R65.21 - Severe sepsis with septic shock (2) Acute UTI: PLAN: Plan 1. Sepsis due C. difficile colitis ? He does have a staghorn calculus ? Urology says there is nothing to do acutely ? Continue with broad-spectrum antibiotics ? Cultures are pending, C. difficile testing did come back positive appreciate GIs assistance, they did add IV Flagyl ? Appreciate entry level business analyst assistance 2. Acute metabolic cephalopathy with nonalcoholic cirrhotic liver disease possible hepatic encephalopathy/chronic anemia and thrombocytopenia ? Due to sepsis in combination with his elevated ammonia in the setting of liver disease ? Continue with lactulose ? C. difficile positive ? Hyponatremia is resolved ? Hold his Lasix 3. GERD ? Stable ? Continue with PPI 4. DM2 ? Accu-Cheks ? Insulin ? Will monitor make adjustments as necessary DVT: SCDs Charges/Coding Visit Charges Inpatient E&M: 46433 Subs Hosp L2
[2024-10-31] MEDS: metroNIDAZOLE 500 MG/100 ML BAG 100 MG IV ×2 (10:23→21:31)
[2024-10-31 10:35] LABS: Bedside Glucose 184 mg/dL (74-106)
[2024-10-31 10:35] LABS: Bedside Glucose 189 mg/dL (74-106)
[2024-10-31] MEDS: 0.9% Normal Saline (1000mL) 1,000 ML 75 ML IV (11:03)
[2024-10-31 11:28] LABS: Bedside Glucose 175 mg/dL (74-106)
[2024-10-31 17:45] LABS: Bedside Glucose 185 mg/dL (74-106)
[2024-11-01 00:40] LABS: Bedside Glucose 232 mg/dL (74-106)
[2024-11-01] MEDS: Vancomycin 125 MG/5 ML Susp PO.SYRINGE NG ×5 (00:42→23:37)
[2024-11-01] MEDS: Insulin Lispro 100 UNIT/ML INSULN.PEN SC ×5 (00:43→23:37)
[2024-11-01] MEDS: 0.9% Normal Saline (1000mL) 1,000 ML 75 ML IV ×2 (03:04→15:01)
[2024-11-01 03:20] VITALS: BP 136/84; PULSE 85; RESP 18; TEMP 36.8
[2024-11-01 04:49] LABS: Hematocrit 37.8 % (40-54); Hemoglobin 12.8 g/dL (13.0-16.5); Mean Corp Hgb Conc 33.9 g/dL (32-36); Mean Corpuscular Hgb 31.4 pg (27.0-32.0); Mean Corpuscular Volume 92.9 fL (80-94); Mean Platelet Vol. 11.9 fl (6.2-12.0); POSITIVE COUNT YES; POSITIVE DIFFERENTIAL YES; POSITIVE MORPHOLOGY YES; Platelet Count 116 K/mm3 (150-450); RBC Distribution Width CV 19.8 % (11.6-14.6); RBC Distribution Width SD 66.4 fl (35.1-43.9); Red Blood Count 4.07 M/mm3 (4.6-6.2); White Blood Count 20.8 K/mm3 (4.4-11.0)
[2024-11-01 05:00] LABS: Differential Indicated MANUAL DIFF
[2024-11-01 05:29] LABS: Eosinophil 1 % (0-5); Lymphocyte 7 % (19-41); Metamyelocyte 2 % (0-1); Monocyte 8 % (0-10); Myelocyte 1 % (0-0); Neutrophil-Band 27 % (0-5); Neutrophil-Segmented 54 % (47-70); Total Cells Counted 100 (MANUAL DIFF)
[2024-11-01 05:30] LABS: Differential Comment SCANNED
[2024-11-01 05:31] LABS: Absolute Neutrophil Count 16.9 X10^3/uL (2.0-7.7); Anisocytosis 1+; Platelet Estimate ADEQUATE (ADEQ)
[2024-11-01 05:32] LABS: Absolute Lymphocyte Count 1.46 X10^3/uL (0.83-4.51); Pathologist Review May foll
[2024-11-01 05:33] LABS: ALB/GLOB Ratio 0.8 RATIO (0.9-2.4); AST(SGOT) 39 U/L (<=37); Alanine Aminotransfer ALT/SGPT 24 U/L (<=46); Albumin, Serum 2.6 g/dL (3.5-5.0); Alkaline Phosphatase 253 U/L (40-129); Anion Gap 13 (5-15); BUN 27 mg/dL (4-19); BUN/Creat Ratio 22.4 RATIO (10-20); Calcium,Total 9.5 mg/dL (7.6-11.0); Chloride 110 mmol/L (98-108); Creatinine, Serum 1.19 mg/dL (0.70-1.20); EST Glomerular Filtration Rate 71 (>60); Estimated Creatinine Clearance 76.09 ml/min (50-250); Globulin 3.1 g/dL (2.2-4.2); Glucose 235 mg/dL (70-99); Potassium 3.4 mmol/L (3.3-5.1); Protein, Total 5.6 g/dL (5.9-8.4); Sodium Level 135 mmol/L (133-145); Total Bilirubin 2.11 mg/dL (0.00-1.30)
[2024-11-01 05:58] LABS: Vancomycin, Trough Level 17.7 ug/mL (5.0-15.0)
[2024-11-01 06:00] VITALS: BMI 32.0
[2024-11-01] MEDS: Piperacil/Tazobactam 3.375 GM in 0.9% Normal Saline (50mL MB+) 50 ML IV ×2 (06:00→14:02)
[2024-11-01] MEDS: Menthol/Lanolin/Calamine/Znox 113 GM Tube 1 APPLIC TOPICAL ×2 (06:01→23:11)
--- NOTE | 2024-11-01 06:04 | PCM.RX.CS ---
Consult Antibiotic Management Pharmacy has been consulted to manage selected antibiotic: Vancomycin Type of Intervention Type of Consult: Follow-up Suspected Infection Suspected Infection: Sepsis Labs Labs: Sodium 135 mmol/L (133-145) 11/01/24 04:38 Potassium 3.4 mmol/L (3.3-5.1) 11/01/24 04:38 Chloride 110 mmol/L (98-108) H 11/01/24 04:38 Carbon Dioxide 13.0 mmol/L (21.0-32.0) L 11/01/24 04:38 Anion Gap 13 (5-15) 11/01/24 04:38 BUN 27 mg/dL (4-19) H 11/01/24 04:38 Creatinine 1.19 mg/dL (0.70-1.20) 11/01/24 04:38 Est GFR (MDRD) Non-Af 71 (>60) 11/01/24 04:38 BUN/Creatinine Ratio 22.4 RATIO (10-20) H 11/01/24 04:38 Glucose 235 mg/dL (70-99) H 11/01/24 04:38 Vancomycin Trough 17.7 ug/mL (5.0-15.0) H 11/01/24 04:38 Microbiology Microbiology: Microbiology 10/29/24 02:01 Urine, Clean Catch Urine Culture - Final Culture exhibits no growth. 10/29/24 01:00 Blood Culture (Wb) - Anticubital Left Blood Culture - Preliminary No growth in 48 hours. 10/29/24 00:32 Blood Culture (Wb) - Right Wrist Blood Culture - Preliminary No growth in 48 hours. 10/30/24 06:46 Stool Stool Lactoferrin - Final 10/30/24 06:46 Stool Enteric Bacteriology - Final 10/30/24 06:46 Stool C. difficile GDH Antigen & Toxins - Final Toxigenic C. difficile 10/30/24 06:46 Stool Clostridioides difficile (PCR) - Final Estimated Creatinine Clearance Estimated Creatinine Clearance: 76 Goal Trough Goal Trough: 15-20 mcg/mL Pharmacy Plan for Drug Dosing Pharmacy Plan for Drug Dosing: VANCOMYCIN LEVEL RECEIVED Current Vancomycin Dose: 750mg Q12H Number of Doses Received: 750mg x3 since adjustment Vancomycin Level: 17.7 Hours Since Last Dose: 9 Renal Function: sCr 1.19 Renal Function Trend: stable Lab/Micro: pending Vancomycin Plan/Comments: Continue 750mg Q12H Pending Level: Vancomycin trough @ 16:30 11/02/24 Pharmacy Service will continue to monitor and adjust dosing as required. Follow-Up Labs Follow-Up Labs: Trough: Vancomycin (11/02/24 @ 16:30)
[2024-11-01] MEDS: Vancomycin HCl 750 MG in 0.9% Normal Saline (250mL Bag) 250 ML 250 MG IV (06:19)
[2024-11-01 06:29] LABS: Bedside Glucose 209 mg/dL (74-106)
--- NOTE | 2024-11-01 08:36 | PCM.PN.BLA ---
Progress Note Patient has a little bit longer today. He has been having multiple bowel movements with administration of lactulose via NG tube. However he has not been experiencing a expected nongap metabolic acidosis. He is about -100 and his fluid balance. No signs of GI bleeding at this time. His abdomen is slightly a little bit more distended. Physical Exam Narrative General: Drowsy HEENT: Atraumatic, PERRLA, normocephalic Oral: Dry mucosa Neck: Supple, No JVD Lungs: Diminished, Normal air movement, No rhonchi, No wheeze, No rales Cardiovascular: Regular rate, Regular Rhythm, Normal S1, Normal S2, No murmurs Abdomen: Soft, Non Tender, Non-Distended, No Hepato-splenomegaly Extremities: No edema, Capillary Refill Less than 3 Seconds Skin: No rashes, No breakdown Musculoskeletal: No Tenderness to Palpation of Joints or Extremities Neurological: No focal neurological deficits, moves all extremities Psych/Mental Status: Flat Assessment & Plan Assessment/Plan (1) Sepsis: QUALIFIERS: Sepsis type: sepsis due to unspecified organism Sepsis acute organ dysfunction status: with acute organ dysfunction Severe sepsis acute organ dysfunction type: unspecified Severe sepsis shock status: with septic shock Qualified Code(s): A41.9 - Sepsis, unspecified organism; R65.21 - Severe sepsis with septic shock (2) Acute hypotension: (3) Leukocytosis: QUALIFIERS: Leukocytosis type: unspecified Qualified Code(s): D72.829 - Elevated white blood cell count, unspecified (4) Acidosis, lactic: (5) Acute UTI: (6) History of uric acid staghorn calculus: (7) Diarrhea: QUALIFIERS: Diarrhea type: presumed infectious Qualified Code(s): R19.7 - Diarrhea, unspecified (8) Chronic abdominal pain: (9) Chronic back pain: QUALIFIERS: Back pain location: back pain in unspecified location Back pain laterality: unspecified Qualified Code(s): M54.9 - Dorsalgia, unspecified; G89.29 - Other chronic pain (10) Hyponatremia: (11) Obesity (BMI 30.0-34.9): (12) Clostridium difficile colitis: PLAN: Plan 59 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 He currently has a meld of 28 which carries a 20% mortality in the next 90 days. He is also a child Gonzalez class C due to sepsis (urosepsis, cdiff) and acute kidney injury. He also has chronic hypotension, anemia, thrombocytopenia. Cdiff colitis- Broad-spectrum antibiotic use probrably predisposed him to Cdiff. His wbc is increasing which is not a good sign. This puts him at risk for toxic megacolon. individuals to selective elimination of healthy gut microbiota and overgrowth of Clostridium difficile (C. difficile) in the gastrointestinal gaviota. He should be on Vancomyocin 125mg PO QID and Metronidiazole 500mg IV Q12. Severe Hypoammonemia- Secondary to urosepsis and cdiff colitis. His ammonia will be very difficult to control until his sepsis is undercontrol. Continue lactulose until he develops a Non-gapped metabolic acidosis with a goal bicarbonate of 18. Cirrhosis- Check his INR/PT/PTT- high risk for DIC. Hyperbilirubinemia of 1.83 mg/dL, with AST 48 U/L, ALT 23 U/L and Alkaline Phosphatase 274 U/L all present on admission - but improved since his recent previous admission. He underwent outpatient ultrasound-guided paracentesis on September 29, 2024 with ~4.5L of yellow-colored fluid removed with no ascites on CT this admission. 11/01/2024-patient on medical therapy for severe C. difficile colitis. It does bother me that his INR is not improving with IM vitamin K. He still remains at 2.5 which increases his MELD 30. This carries a greater than 50% mortality in the next 90 days from cirrhosis. His kidney function seems to be maintaining and has not shown any signs of hepatorenal syndrome type I or type II. He is not showing signs of significant metatobolic acidosis. He needs a urine sodium. He will need to recheck his ammonia. He has a chronically high hyperammonemia likely secondary to poor kidney function and noncompliance with his medications. I would like to get his fluid balance a little bit more negative. It was possible to change the pH of his To extract more ammonia from his blood if needed. He will need to be maintained on vancomycin 125 mg p.o. every 6 hours along with metronidazole 500 mg IV. Because he is immunosuppressed due to cirrhosis he would likely need Zinplava on discharge from the hospital if it is possible. He will need this approximately 7 days after he is discharged from the hospital. Guarded prognosis. -Urine sodium -Strict I's and O's -Repeat ammonia level -Continue lactulose -Continue Flagyl and vancomycin -Need to discuss with urology regarding the need for the Zosyn as it increases his risk of recurrent C. difficile colitis. If he will need to be on antibiotic therapy for his urinary tract infection, he will need to be on prophylactic doses of vancomycin. Visit Charges Inpatient E&M: 77026 [facility] Hosp L3
[2024-11-01 08:40] VITALS: BP 141/90; PULSE 99; RESP 16; TEMP 36.6; O2SAT 97
[2024-11-01] MEDS: Ascorbic Acid 500 MG Tablet 1000 MG PO ×2 (09:05→17:32)
[2024-11-01] MEDS: Midodrine HCl 5 MG Tablet 10 MG PO ×3 (09:05→17:32)
[2024-11-01] MEDS: Lactobacillis Acidophilus 1 CAP PO ×4 (09:06→23:05)
[2024-11-01] MEDS: Lactulose 20 GM/30 ML UDC 15 GM NG ×2 (09:06→23:10)
[2024-11-01] MEDS: Pantoprazole Sodium 40 MG in 0.9% Normal Saline (100mL MB+) 100 ML 330 MG IV (09:07)
[2024-11-01] MEDS: Folic Acid 1 MG Tablet PO (09:07)
[2024-11-01] MEDS: rifAXIMin 550 MG Tablet PO ×2 (09:11→23:11)
[2024-11-01] MEDS: Cholecalciferol (Vit D3) 125 MCG CAPSULE (5,000 UNITS) PO (09:11)
[2024-11-01] MEDS: Zinc Sulfate 50 mg zinc (220 mg) ORAL capsule PO (09:11)
[2024-11-01] MEDS: metroNIDAZOLE 500 MG/100 ML BAG 100 MG IV (09:47)
--- NOTE | 2024-11-01 11:28 | PN.HOSP_ITS ---
Reason for Visit Reason for Visit: Diagnoses Enterocolitis due to Clostridium difficile, not specified as recurrent (10/29/24) Sepsis, unspecified organism (10/29/24) Elevated white blood cell count, unspecified (10/29/24) Obesity, class 1 (10/29/24) Hypo-osmolality and hyponatremia (10/29/24) Acidosis, unspecified (10/29/24) Other chronic pain (10/29/24) Hypotension, unspecified (10/29/24) Dorsalgia, unspecified (10/29/24) Urinary tract infection, site not specified (10/29/24) Unspecified abdominal pain (10/29/24) Diarrhea, unspecified (10/29/24) Severe sepsis with septic shock (10/29/24) Personal history of urinary calculi (10/29/24) Subjective Subjective Patient is a 59-year-old gentleman who presented with abdominal pain with diarrhea as well as back pain. An assessment of sepsis secondary to C. difficile colitis made admitted to a monitored bed for subsequent management Objective Data Objective Data Vital Signs: Vital Signs Temp Pulse Resp BP Pulse Ox O2 Del Method 97.9 F 99 16 141/90 H 97 Room Air 11/01/24 08:40 11/01/24 08:40 11/01/24 08:40 11/01/24 08:40 11/01/24 08:40 11/01/24 08:40 Oxygen Delivery Method Room Air Weight: 98 kg Body Mass Index (BMI) 32.0 Intake & Output: Intake and Output for Last 24 Hours 10/30/24 10/31/24 11/01/24 23:59 23:59 23:59 Intake Total 940 / 940 2224.58 / 2224.58 1755 / 1755 Output Total 1475 / 1475 250 / 500 250 / 250 Balance -535 / -535 1974.58 / 1724.58 1505 / 1505 Lab / Micro Data 11/01/24 04:38 11/01/24 04:38 Labs: Laboratory Results - last 24 hr 10/31/24 11:07: POC Glucose 175 H 10/31/24 17:22: POC Glucose 185 H 11/01/24 00:19: POC Glucose 232 H 11/01/24 04:38: WBC 20.8 H, RBC 4.07 L, Hgb 12.8 L, Hct 37.8 L, MCV 92.9, MCH 31.4, MCHC 33.9, RDW Std Deviation 66.4 H, RDW Coeff of Francis 19.8 H, Plt Count 116 L, MPV 11.9, Neut % (Auto) Not Reportable, Absolute Neuts (auto) 16.9 H, Absolute Lymphs (auto) 1.46, Total Counted 100, Neutrophils % (Manual) 54, Band Neutrophils % 27 H, Lymphocytes % (Manual) 7 L, Monocytes % (Manual) 8, Eosinophils % (Manual) 1, Metamyelocytes % 2 H, Myelocytes % 1 H, Differential Comment SCANNED, Diff Path Review December, Platelet Estimate ADEQUATE, Anisocytosis 1+, Sodium 135, Potassium 3.4, Chloride 110 H, Carbon Dioxide 13.0 L, Anion Gap 13, BUN 27 H, Creatinine 1.19, Estim Creat Clear Calc 76.09, Est GFR (MDRD) Non-Af 71, BUN/Creatinine Ratio 22.4 H, Glucose 235 H, Calcium 9.5, T otal Bilirubin 2.11 H, AST 39 H, ALT 24, Alkaline Phosphatase 253 H, Total Protein 5.6 L, Albumin 2.6 L, Globulin 3.1, Albumin/Globulin Ratio 0.8 L, V ancomycin Trough 17.7 H 11/01/24 05:57: POC Glucose 209 H Micro: Microbiology 10/29/24 02:01 Urine, Clean Catch Urine Culture - Final Culture exhibits no growth. 10/29/24 01:00 Blood Culture (Wb) - Anticubital Left Blood Culture - Preliminary No growth in 48 hours. 10/29/24 00:32 Blood Culture (Wb) - Right Wrist Blood Culture - Preliminary No growth in 48 hours. 10/30/24 06:46 Stool Stool Lactoferrin - Final 10/30/24 06:46 Stool Enteric Bacteriology - Final 10/30/24 06:46 Stool C. difficile GDH Antigen & Toxins - Final Toxigenic C. difficile 10/30/24 06:46 Stool Clostridioides difficile (PCR) - Final Rhythm Strip Rhythm Strip: Sinus Rhythm Rate: 83 Ectopy: None Physical Exam Narrative GENERAL: Remains delirious HEENT: Atraumatic; normocephalic EYES; Anicteric, Normal Conjunctiva NECK; supple, normal thyroid, RESPIRATORY: Diminished to auscultation CARDIOVASCULAR: Regular S1 S2, GI: soft, normoactive bowel sounds, : Del Castillo catheter in place with hematuria EXTREMITIES: No edema, no clubbing, MUSCULOSKELETAL: no muscle wasting NEURO: Awake; no lateralizing signs. SKIN: No Rash PSYCH; Flat affect Assessment & Plan Assessment/Plan (1) Sepsis: QUALIFIERS: Sepsis acute organ dysfunction status: with acute organ dysfunction Sepsis type: sepsis due to unspecified organism Severe sepsis acute organ dysfunction type: unspecified Severe sepsis shock status: w ith septic shock Qualified Code(s): A41.9 - Sepsis, unspecified organism; R65.21 - Severe sepsis with septic shock (2) Acute UTI: PLAN: Plan Patient is a 59-year-old gentleman who presented with abdominal pain with diarrhea as well as back pain. An assessment of sepsis secondary to C. difficile colitis made admitted to a monitored bed for subsequent management 1. Sepsis ? Secondary to C. difficile colitis Patient managed with IV metronidazole as well as p.o. vancomycin via NG tube 2. Acute hepatic encephalopathy ? Secondary to nonalcoholic fatty liver disease with cirrhosis. Patient was found to have severe hypomagnesemia and NG tube was placed patient did receive lactulose 3. Acute metabolic encephalopathy ? Due to combination of sepsis hepatic encephalopathy as well as hyponatremia treatment of underlying etiology initiated 4. Cirrhosis of the liver ? Secondary to nonalcoholic fatty liver disease patient was seen in consultation by GI. Patient is on rifaximin continue 5. Hyponatremia ? Resolved 6. Obstructive sleep apnea ? Patient is on CPAP at night consistent use encouraged 7. Diabetes mellitus type II -patient's oral hypoglycemics held. Placed on long acting insulin, Accu-Cheks a.c. and at bedtime and covered with sliding scale insulin 8. GERD ? Patient is on PPI 9. Class I obesity with BMI of 32 ? Complicating care weight loss advised 10. Hypokalemia -Corrected per protocol 11. Chronic thrombocytopenia ? Secondary to chronic liver disease monitoring 12. Anemia ? Secondary to chronic disorder monitoring H&H and transfuse if patient becomes symptomatic or hemoglobin falls below 7 13. Nephrolithiasis with hematuria ? Patient is known to have a staghorn calculus and has a stent in place. Was seen in consultation by Dr Rascon with urology's notes and recommendations reviewed. Patient has Del Catsillo catheter in place hematuria persist 14. DVT prophylaxis ? Avoid any use of chemoprophylaxis given patient low platelet count as well as hematuria Time spent in the patient's overall evaluation,decision-making process, review of diagnostic data, adjustment of management, discussion with other providers, nursing nursing and ancillary staff involved in patient's care documentation, 50 Minutes Charges/Coding Visit Charges Inpatient E&M: 61606 Subs Hosp L3
[2024-11-01 13:07] VITALS: BP 130/84; PULSE 103; RESP 18; TEMP 36.4; O2SAT 98
--- NOTE | 2024-11-01 14:21 | CASEMGMT ---
SW attempted to talk with patient about senior living. However, patient was perseverating on nelsno franky. Patient said he never agreed to a senior living. SW will check back another time when patient is more oriented. Hortencia Fleming [employer]
[2024-11-01 16:51] LABS: Bedside Glucose 181 mg/dL (74-106)
[2024-11-01 17:29] VITALS: BP 138/81; PULSE 104; RESP 17; TEMP 36.6; O2SAT 97
[2024-11-01 18:11] LABS: Bedside Glucose 172 mg/dL (74-106)
[2024-11-01 22:30] VITALS: BP 146/89; PULSE 90; RESP 16; TEMP 36.6; O2SAT 100
[2024-11-01] MEDS: MELATONIN 3 MG TABLET PO (23:11)
[2024-11-02] LABS: Bedside Glucose 161 mg/dL (74-106)
--- NOTE | 2024-11-02 00:16 | NURSING ---
Fluids on hold for patient due to unable to get IV access. Attempted Ultrasound IV and could not gain access. MD aware and placed order for PICC line for the morning.
[2024-11-02] MEDS: metroNIDAZOLE 500 MG/100 ML BAG 100 MG IV ×3 (00:35→21:58)
--- NOTE | 2024-11-02 00:40 | NURSING ---
IV Access gained with another attempt at with the ultrasound. Still has PICC consult for the morning, this is the reason for the late IV antibiotic administration.
[2024-11-02 03:15] VITALS: BP 125/78; PULSE 94; RESP 16; TEMP 36.6; O2SAT 100
[2024-11-02 05:11] VITALS: BMI 30.4
[2024-11-02] MEDS: 0.9% Normal Saline (1000mL) 1,000 ML 75 ML IV (05:53)
[2024-11-02] MEDS: Menthol/Lanolin/Calamine/Znox 113 GM Tube 1 APPLIC TOPICAL ×3 (05:54→21:58)
[2024-11-02] MEDS: Vancomycin 125 MG/5 ML Susp PO.SYRINGE NG ×3 (05:54→18:01)
[2024-11-02] MEDS: Insulin Lispro 100 UNIT/ML INSULN.PEN SC ×4 (05:54→23:56)
[2024-11-02 06:17] LABS: Bedside Glucose 180 mg/dL (74-106)
[2024-11-02 07:27] LABS: Hematocrit 34.9 % (40-54); Hemoglobin 11.7 g/dL (13.0-16.5); Mean Corp Hgb Conc 33.5 g/dL (32-36); Mean Corpuscular Hgb 31.3 pg (27.0-32.0); Mean Corpuscular Volume 93.3 fL (80-94); Mean Platelet Vol. 11.4 fl (6.2-12.0); POSITIVE COUNT YES; POSITIVE MORPHOLOGY YES; Platelet Count 72 K/mm3 (150-450); RBC Distribution Width CV 19.2 % (11.6-14.6); RBC Distribution Width SD 66.1 fl (35.1-43.9); Red Blood Count 3.74 M/mm3 (4.6-6.2); White Blood Count 17.9 K/mm3 (4.4-11.0)
[2024-11-02 07:35] LABS: Differential Indicated MANUAL DIFF
[2024-11-02 08:03] LABS: Phosphorus 2.2 mg/dL (2.7-4.5)
--- NOTE | 2024-11-02 08:04 | PN.HOSP_ITS ---
Reason for Visit Reason for Visit: Diagnoses Enterocolitis due to Clostridium difficile, not specified as recurrent (10/29/24) Sepsis, unspecified organism (10/29/24) Elevated white blood cell count, unspecified (10/29/24) Obesity, class 1 (10/29/24) Hypo-osmolality and hyponatremia (10/29/24) Acidosis, unspecified (10/29/24) Other chronic pain (10/29/24) Hypotension, unspecified (10/29/24) Dorsalgia, unspecified (10/29/24) Urinary tract infection, site not specified (10/29/24) Unspecified abdominal pain (10/29/24) Diarrhea, unspecified (10/29/24) Severe sepsis with septic shock (10/29/24) Personal history of urinary calculi (10/29/24) Subjective Subjective Patient is a level of sensorium improving. Diagnostic data reviewed send significant for elevated WBC count and low phosphate levels. Objective Data Objective Data Vital Signs: Vital Signs Temp Pulse Resp BP Pulse Ox O2 Del Method 97.9 F 94 16 125/78 H 100 Room Air 11/02/24 03:15 11/02/24 03:15 11/02/24 03:15 11/02/24 03:15 11/02/24 03:15 11/02/24 03:15 Oxygen Delivery Method Room Air Weight: 93.2 kg Body Mass Index (BMI) 30.4 Intake & Output: Intake and Output for Last 24 Hours 10/31/24 11/01/24 11/02/24 23:59 23:59 23:59 Intake Total 2224.58 / 2224.58 2696.67 / 2696.67 1100 / 1100 Output Total 250 / 500 625 / 1225 900 / 900 Balance 1974.58 / 1724.58 2071.67 / 1471.67 200 / 200 Lab / Micro Data 11/02/24 06:52 11/02/24 06:52 Labs: Laboratory Results - last 24 hr 11/01/24 12:02: POC Glucose 181 H 11/01/24 17:27: POC Glucose 172 H 11/01/24 23:36: POC Glucose 161 H 11/02/24 05:52: POC Glucose 180 H 11/02/24 06:52: WBC 17.9 H, RBC 3.74 L, Hgb 11.7 L, Hct 34.9 L, MCV 93.3, MCH 31.3, MCHC 33.5, RDW Std Deviation 66.1 H, RDW Coeff of Francis 19.2 H, Plt Count 72 L, MPV 11.4, Neut % (Auto) Not Reportable, Phosphorus 2.2 L, Magnesium 2.0 Micro: Microbiology 10/29/24 02:01 Urine, Clean Catch Urine Culture - Final Culture exhibits no growth. 10/29/24 01:00 Blood Culture (Wb) - Anticubital Left Blood Culture - Preliminary No growth in 48 hours. 10/29/24 00:32 Blood Culture (Wb) - Right Wrist Blood Culture - Preliminary No growth in 48 hours. 10/30/24 06:46 Stool Stool Lactoferrin - Final 10/30/24 06:46 Stool Enteric Bacteriology - Final 10/30/24 06:46 Stool C. difficile GDH Antigen & Toxins - Final Toxigenic C. difficile 10/30/24 06:46 Stool Clostridioides difficile (PCR) - Final Rhythm Strip Rhythm Strip: Sinus Rhythm Rate: 83 Ectopy: None Physical Exam Narrative GENERAL: Remains delirious HEENT: Atraumatic; normocephalic EYES; Anicteric, Normal Conjunctiva NECK; supple, normal thyroid, RESPIRATORY: Diminished to auscultation CARDIOVASCULAR: Regular S1 S2, GI: soft, normoactive bowel sounds, : Del Castillo catheter in place with hematuria EXTREMITIES: No edema, no clubbing, MUSCULOSKELETAL: no muscle wasting NEURO: Awake; no lateralizing signs. SKIN: No Rash PSYCH; Flat affect Assessment & Plan Assessment/Plan (1) Sepsis: QUALIFIERS: Sepsis acute organ dysfunction status: with acute organ dysfunction Sepsis type: sepsis due to unspecified organism Severe sepsis acute organ dysfunction type: unspecified Severe sepsis shock status: w ith septic shock Qualified Code(s): A41.9 - Sepsis, unspecified organism; R65.21 - Severe sepsis with septic shock (2) Acute UTI: PLAN: Plan Patient is a 59-year-old gentleman who presented with abdominal pain with diarrhea as well as back pain. An assessment of sepsis secondary to C. difficile colitis made admitted to a monitored bed for subsequent management 1. Sepsis ? Secondary to C. difficile colitis Patient managed with IV metronidazole as well as p.o. vancomycin via NG tube ?11/02/2024; patient WBC count still remains elevated NG tube discontinued by the patient himself 2. Acute hepatic encephalopathy ? Secondary to nonalcoholic fatty liver disease with cirrhosis. Patient was found to have severe hypomagnesemia and NG tube was placed patient did receive lactulose ? 11/02/2024; level of sensorium improving 3. Acute metabolic encephalopathy ? Due to combination of sepsis hepatic encephalopathy as well as hyponatremia treatment of underlying etiology initiated 4. Cirrhosis of the liver ? Secondary to nonalcoholic fatty liver disease patient was seen in consultation by GI. Patient is on rifaximin continue 5. Hyponatremia ? Resolved 6. Obstructive sleep apnea ? Patient is on CPAP at night consistent use encouraged 7. Diabetes mellitus type II -patient's oral hypoglycemics held. Placed on long acting insulin, Accu-Cheks a.c. and at bedtime and covered with sliding scale insulin 8. GERD ? Patient is on PPI 9. Class I obesity with BMI of 32 ? Complicating care weight loss advised 10. Hypokalemia -Corrected per protocol ? 11/02/2024 potassium remains low additional replacement given 11. Chronic thrombocytopenia ? Secondary to chronic liver disease monitoring 12. Anemia ? Secondary to chronic disorder monitoring H&H and transfuse if patient becomes symptomatic or hemoglobin falls below 7 13. Nephrolithiasis with hematuria ? Patient is known to have a staghorn calculus and has a stent in place. Was seen in consultation by Dr Rascon with urology's notes and recommendations reviewed. Patient has Del Castillo catheter in place hematuria persist 14. DVT prophylaxis ? Avoid any use of chemoprophylaxis given patient low platelet count as well as hematuria 15. Hypophosphatemia ? 11/02/2024 corrected per protocol Time spent in the patient's overall evaluation,decision-making process, review of diagnostic data, adjustment of management, discussion with other providers, nursing nursing and ancillary staff involved in patient's care documentation, 50 Minutes Charges/Coding Visit Charges Inpatient E&M: 50496 Subs Hosp L3
[2024-11-02 08:10] LABS: ALB/GLOB Ratio 0.7 RATIO (0.9-2.4); AST(SGOT) 45 U/L (<=37); Alanine Aminotransfer ALT/SGPT 29 U/L (<=46); Albumin, Serum 2.3 g/dL (3.5-5.0); Alkaline Phosphatase 221 U/L (40-129); Anion Gap 11 (5-15); BUN 24 mg/dL (4-19); Calcium,Total 9.1 mg/dL (7.6-11.0); Carbon Dioxide 12.2 mmol/L (21.0-32.0); Chloride 109 mmol/L (98-108); Creatinine, Serum 1.09 mg/dL (0.70-1.20); EST Glomerular Filtration Rate 79 (>60); Estimated Creatinine Clearance 83.27 ml/min (50-250); Globulin 3.1 g/dL (2.2-4.2); Glucose 174 mg/dL (70-99); Potassium 3.2 mmol/L (3.3-5.1); Protein, Total 5.4 g/dL (5.9-8.4); Sodium Level 133 mmol/L (133-145); Total Bilirubin 2.06 mg/dL (0.00-1.30)
[2024-11-02 08:17] LABS: Eosinophil 3 % (0-5); Lymphocyte 7 % (19-41); Monocyte 1 % (0-10); Neutrophil-Band 3 % (0-5); Neutrophil-Segmented 86 % (47-70); Total Cells Counted 100 (MANUAL DIFF)
[2024-11-02 08:18] LABS: Red Cell Morphology NORM C+C NORMAL (NORM C&C)
[2024-11-02 08:19] LABS: Absolute Lymphocyte Count 1.25 X10^3/uL (0.83-4.51); Absolute Neutrophil Count 15.9 X10^3/uL (2.0-7.7)
[2024-11-02 08:22] LABS: Platelet Estimate MOD DEC (ADEQ)
[2024-11-02] MEDS: Pantoprazole Sodium 40 MG in 0.9% Normal Saline (100mL MB+) 100 ML 330 MG IV (09:50)
[2024-11-02 09:58] VITALS: BP 129/84; PULSE 115; RESP 18; TEMP 36.5; O2SAT 95
[2024-11-02] MEDS: Ascorbic Acid 500 MG Tablet 1000 MG PO ×2 (10:51→17:22)
[2024-11-02] MEDS: Folic Acid 1 MG Tablet PO (10:51)
[2024-11-02] MEDS: Zinc Sulfate 50 mg zinc (220 mg) ORAL capsule PO (10:52)
[2024-11-02] MEDS: rifAXIMin 550 MG Tablet PO ×2 (10:52→21:58)
[2024-11-02] MEDS: Cholecalciferol (Vit D3) 125 MCG CAPSULE (5,000 UNITS) PO (10:52)
[2024-11-02] MEDS: Lactobacillis Acidophilus 1 CAP PO ×3 (10:52→21:58)
[2024-11-02] MEDS: Lactulose 20 GM/30 ML UDC 15 GM NG ×2 (10:53→21:58)
[2024-11-02] MEDS: Potassium Phosphate 40 MM in 0.9% Normal Saline (500mL Bag) 500 ML 62.5 MM IV (10:54)
[2024-11-02] MEDS: 0.9% Normal Saline (100mL Bag) 100 ML 15 ML IV (10:54)
[2024-11-02] MEDS: 0.9% Saline Lock 10 ML Syringe IV (11:00)
--- NOTE | 2024-11-02 12:07 | CASEMGMT ---
SW met with patient again as per physician patient was agreeable to SNF. SW introduced self and role at [facility]. Patient said he is not going to a correction short term. Patient said last time he went somewhere they took his sweatshirt. Patient did not seem completely alert an oriented compared to when SW spoke with him last visit. SW called patient's son Leopoldo as this is who patient deferred to last visit. SW introduced self and role at [facility]. SW explained situation and Leopoldo said if patient needs to go to a correction then he has to go. Leopoldo said he is overriding patient's refusal to go to SNF. SW asked about choices. Leopoldo said he was okay with the last one he went to. Then a female in the background asked if there were facilities in [place] that he could go to. This would be closer to them. SW asked if SW could email him a list. Leopoldo said whichever facility will take patient that is up to [facility]'s standards will be fine. SW will work on a list, but would prefer to talk with patient when he is more oriented. Hortencia Fleming [employer] LEODAN
[2024-11-02] MEDS: Potassium Chloride 10mEq/100mL 10 MEQ/100 ML IV.SOLN. 100 MEQ IV BOLUS ×4 (12:22→16:12)
[2024-11-02 12:29] VITALS: BP 128/81
[2024-11-02 12:48] LABS: Bedside Glucose 230 mg/dL (74-106)
[2024-11-02 16:16] VITALS: BP 132/84; PULSE 98; RESP 18; TEMP 36.4; O2SAT 98
[2024-11-02 17:54] LABS: Bedside Glucose 281 mg/dL (74-106)
[2024-11-02 22:00] VITALS: BP 134/95; PULSE 105; RESP 15; TEMP 36.6; O2SAT 96
[2024-11-03 00:17] LABS: Bedside Glucose 303 mg/dL (74-106)
[2024-11-03] MEDS: Vancomycin 125 MG/5 ML Susp PO.SYRINGE NG ×4 (00:20→17:25)
[2024-11-03 02:27] VITALS: BP 130/75; PULSE 114; RESP 15; TEMP 36.6; O2SAT 94
[2024-11-03 03:48] VITALS: BMI 30.4
[2024-11-03] MEDS: Menthol/Lanolin/Calamine/Znox 113 GM Tube 1 APPLIC TOPICAL ×2 (05:07→15:26)
[2024-11-03] MEDS: Insulin Lispro 100 UNIT/ML INSULN.PEN SC ×3 (05:07→17:30)
[2024-11-03 05:26] LABS: Bedside Glucose 262 mg/dL (74-106)
[2024-11-03 06:25] LABS: Hematocrit 38.1 % (40-54); Hemoglobin 12.7 g/dL (13.0-16.5); Mean Corp Hgb Conc 33.3 g/dL (32-36); Mean Corpuscular Hgb 31.6 pg (27.0-32.0); Mean Corpuscular Volume 94.8 fL (80-94); Mean Platelet Vol. 11.8 fl (6.2-12.0); POSITIVE COUNT YES; POSITIVE DIFFERENTIAL YES; POSITIVE MORPHOLOGY YES; Platelet Count 85 K/mm3 (150-450); RBC Distribution Width CV 18.9 % (11.6-14.6); RBC Distribution Width SD 66.2 fl (35.1-43.9); Red Blood Count 4.02 M/mm3 (4.6-6.2); White Blood Count 25.3 K/mm3 (4.4-11.0)
[2024-11-03 06:32] LABS: Differential Indicated MANUAL DIFF
[2024-11-03 06:45] LABS: ALB/GLOB Ratio 0.7 RATIO (0.9-2.4); AST(SGOT) 54 U/L (<=37); Alanine Aminotransfer ALT/SGPT 34 U/L (<=46); Albumin, Serum 2.4 g/dL (3.5-5.0); Alkaline Phosphatase 249 U/L (40-129); Anion Gap 12 (5-15); BUN 21 mg/dL (4-19); BUN/Creat Ratio 17.7 RATIO (10-20); Calcium,Total 9.3 mg/dL (7.6-11.0); Chloride 107 mmol/L (98-108); Creatinine, Serum 1.16 mg/dL (0.70-1.20); EST Glomerular Filtration Rate 73 (>60); Estimated Creatinine Clearance 78.33 ml/min (50-250); Globulin 3.3 g/dL (2.2-4.2); Glucose 288 mg/dL (70-99); Potassium 3.7 mmol/L (3.3-5.1); Protein, Total 5.7 g/dL (5.9-8.4); Sodium Level 130 mmol/L (133-145); Total Bilirubin 1.86 mg/dL (0.00-1.30)
[2024-11-03 08:44] LABS: Eosinophil 1 % (0-5); Lymphocyte 2 % (19-41); Metamyelocyte 1 % (0-1); Monocyte 2 % (0-10); Myelocyte 1 % (0-0); Neutrophil-Band 6 % (0-5); Total Cells Counted 100 (MANUAL DIFF)
[2024-11-03 08:46] LABS: Neutrophil-Segmented 85 % (47-70)
[2024-11-03 08:47] LABS: Platelet Estimate MOD DEC (ADEQ)
[2024-11-03 08:49] LABS: Anisocytosis 2+; Polychromasia 1+
[2024-11-03 08:59] VITALS: BP 126/86; PULSE 113; RESP 16; TEMP 36.8; O2SAT 98
[2024-11-03] MEDS: rifAXIMin 550 MG Tablet PO ×2 (09:09→23:30)
[2024-11-03] MEDS: metroNIDAZOLE 500 MG/100 ML BAG 100 MG IV ×2 (09:09→23:30)
[2024-11-03] MEDS: Lactobacillis Acidophilus 1 CAP PO ×3 (09:09→23:30)
[2024-11-03] MEDS: Pantoprazole Sodium 40 MG in 0.9% Normal Saline (100mL MB+) 100 ML 330 MG IV (09:09)
[2024-11-03] MEDS: Midodrine HCl 5 MG Tablet 10 MG PO ×3 (09:09→17:25)
[2024-11-03] MEDS: Cholecalciferol (Vit D3) 125 MCG CAPSULE (5,000 UNITS) PO (09:10)
[2024-11-03] MEDS: Folic Acid 1 MG Tablet PO (09:10)
[2024-11-03] MEDS: Ascorbic Acid 500 MG Tablet 1000 MG PO ×2 (09:10→17:25)
[2024-11-03] MEDS: Zinc Sulfate 50 mg zinc (220 mg) ORAL capsule PO (09:10)
[2024-11-03] MEDS: Lactulose 20 GM/30 ML UDC 15 GM NG ×2 (09:13→23:30)
--- NOTE | 2024-11-03 10:25 | PN.HOSP_ITS ---
Reason for Visit Reason for Visit: Diagnoses Enterocolitis due to Clostridium difficile, not specified as recurrent (10/29/24) Sepsis, unspecified organism (10/29/24) Elevated white blood cell count, unspecified (10/29/24) Obesity, class 1 (10/29/24) Hypo-osmolality and hyponatremia (10/29/24) Acidosis, unspecified (10/29/24) Other chronic pain (10/29/24) Hypotension, unspecified (10/29/24) Dorsalgia, unspecified (10/29/24) Urinary tract infection, site not specified (10/29/24) Unspecified abdominal pain (10/29/24) Diarrhea, unspecified (10/29/24) Severe sepsis with septic shock (10/29/24) Personal history of urinary calculi (10/29/24) Subjective Subjective Patient seen much more interactive compared to previous day. Patient diarrhea however persist WBC count trending up. Objective Data Objective Data Vital Signs: Vital Signs Temp Pulse Resp BP Pulse Ox O2 Del Method 98.2 F 113 H 16 126/86 H 98 Room Air 11/03/24 08:59 11/03/24 08:59 11/03/24 08:59 11/03/24 08:59 11/03/24 08:59 11/03/24 08:59 Oxygen Delivery Method Room Air Weight: 93.4 kg Body Mass Index (BMI) 30.4 Intake & Output: Intake and Output for Last 24 Hours 11/01/24 11/02/24 11/03/24 23:59 23:59 23:59 Intake Total 2696.67 / 2696.67 3406.3333 / 4096.3333 1590 / 1590 Output Total 625 / 1225 1150 / 1450 600 / 600 Balance 2071.67 / 1471.67 2256.3333 / 2646.3333 990 / 990 Lab / Micro Data 11/03/24 05:32 11/03/24 05:32 Labs: Laboratory Results - last 24 hr 11/02/24 12:20: POC Glucose 230 H 11/02/24 17:20: POC Glucose 281 H 11/02/24 23:54: POC Glucose 303 H 11/03/24 05:06: POC Glucose 262 H 11/03/24 05:32: WBC 25.3 H, RBC 4.02 L, Hgb 12.7 L, Hct 38.1 L, MCV 94.8 H, MCH 31.6, MCHC 33.3, RDW Std Deviation 66.2 H, RDW Coeff of Francis 18.9 H, Plt Count 85 L, MPV 11.8, Neut % (Auto) Not Reportable, Absolute Neuts (auto) 23.0 H, A bsolute Lymphs (auto) 0.50 L, Total Counted 100, Neutrophils % (Manual) 85 H, B and Neutrophils % 6 H, Lymphocytes % (Manual) 2 L, Monocytes % (Manual) 2, Eosinophils % (Manual) 1, Metamyelocytes % 1, Myelocytes % 1 H, Diff Path Review December, Platelet Estimate MOD DEC, Polychromasia 1+, Anisocytosis 2+, Sodium 130 L, Potassium 3.7, Chloride 107, Carbon Dioxide 11.0 L, Anion Gap 12, BUN 21 H, Creatinine 1.16, Estim Creat Clear Calc 78.33, Est GFR (MDRD) Non-Af 73, BUN/Creatinine Ratio 17.7, Glucose 288 H, Calcium 9.3, Total Bilirubin 1.86 H, A ST 54 H, ALT 34, Alkaline Phosphatase 249 H, Total Protein 5.7 L, Albumin 2.4 L, Globulin 3.3, Albumin/Globulin Ratio 0.7 L Micro: Microbiology 10/29/24 01:00 Blood Culture (Wb) - Anticubital Left Blood Culture - Final No growth in 5 days. 10/29/24 00:32 Blood Culture (Wb) - Right Wrist Blood Culture - Final No growth in 5 days. 10/30/24 12:31 Stool Ova and Parasites - Final 10/29/24 02:01 Urine, Clean Catch Urine Culture - Final Culture exhibits no growth. 10/30/24 06:46 Stool Stool Lactoferrin - Final 10/30/24 06:46 Stool Enteric Bacteriology - Final 10/30/24 06:46 Stool C. difficile GDH Antigen & Toxins - Final Toxigenic C. difficile 10/30/24 06:46 Stool Clostridioides difficile (PCR) - Final Rhythm Strip Rhythm Strip: Sinus Rhythm Rate: 83 Ectopy: None Physical Exam Narrative GENERAL: Remains delirious HEENT: Atraumatic; normocephalic EYES; Anicteric, Normal Conjunctiva NECK; supple, normal thyroid, RESPIRATORY: Diminished to auscultation CARDIOVASCULAR: Regular S1 S2, GI: soft, normoactive bowel sounds, : Del Castillo catheter in place with hematuria EXTREMITIES: No edema, no clubbing, MUSCULOSKELETAL: no muscle wasting NEURO: Awake; no lateralizing signs. SKIN: No Rash PSYCH; Flat affect Assessment & Plan Assessment/Plan (1) Sepsis: QUALIFIERS: Sepsis type: sepsis due to unspecified organism S epsis acute organ dysfunction status: with acute organ dysfunction Severe sepsis acute organ dysfunction type: unspecified Severe sepsis shock status: w ith septic shock Qualified Code(s): A41.9 - Sepsis, unspecified organism; R65.21 - Severe sepsis with septic shock (2) Acute UTI: PLAN: Plan Patient is a 59-year-old gentleman who presented with abdominal pain with diarrhea as well as back pain. An assessment of sepsis secondary to C. difficile colitis made admitted to a monitored bed for subsequent management 1. Sepsis ? Secondary to C. difficile colitis Patient managed with IV metronidazole as well as p.o. vancomycin via NG tube ?11/02/2024; patient WBC count still remains elevated NG tube discontinued by the patient himself ? Fall 09/23/2024; patient diarrhea still persist however this is complicated by the fact that patient is on lactulose for acute hepatic encephalopathy. WBC count however trending up. 2. Acute hepatic encephalopathy ? Secondary to nonalcoholic fatty liver disease with cirrhosis. Patient was found to have severe hyperammonemia and NG tube was placed patient did receive lactulose ? 11/02/2024; level of sensorium improving 3. Acute metabolic encephalopathy ? Due to combination of sepsis hepatic encephalopathy as well as hyponatremia treatment of underlying etiology initiated 4. Cirrhosis of the liver ? Secondary to nonalcoholic fatty liver disease patient was seen in consultation by GI. Patient is on rifaximin continue 5. Hyponatremia ? Resolved 6. Obstructive sleep apnea ? Patient is on CPAP at night consistent use encouraged 7. Diabetes mellitus type II -patient's oral hypoglycemics held. Placed on long acting insulin, Accu-Cheks a.c. and at bedtime and covered with sliding scale insulin 8. GERD ? Patient is on PPI 9. Class I obesity with BMI of 32 ? Complicating care weight loss advised 10. Hypokalemia -Corrected per protocol ? 11/02/2024 potassium remains low additional replacement given 11. Chronic thrombocytopenia ? Secondary to chronic liver disease monitoring 12. Anemia ? Secondary to chronic disorder monitoring H&H and transfuse if patient becomes symptomatic or hemoglobin falls below 7 13. Nephrolithiasis with hematuria ? Patient is known to have a staghorn calculus and has a stent in place. Was seen in consultation by Dr Rascon with urology's notes and recommendations reviewed. Patient has Del Castillo catheter in place hematuria persist 14. DVT prophylaxis ? Avoid any use of chemoprophylaxis given patient low platelet count as well as hematuria 15. Hypophosphatemia ? 11/02/2024 corrected per protocol 16. Physical deconditioning ? Requested for PT OT eval and psychologist social to assist with discharge planning Time spent in the patient's overall evaluation,decision-making process, review of diagnostic data, adjustment of management, discussion with other providers, nursing nursing and ancillary staff involved in patient's care documentation, 38 Minutes Charges/Coding Visit Charges Inpatient E&M: 63104 Subs Hosp L2
[2024-11-03 11:10] LABS: Ammonia 63.5 umol/L (16-60)
[2024-11-03 12:59] LABS: Bedside Glucose 282 mg/dL (74-106)
[2024-11-03 17:23] VITALS: BP 136/84; PULSE 113; RESP 16; TEMP 36.3; O2SAT 98
--- NOTE | 2024-11-03 17:23 | CASEMGMT ---
Social Work SW met with pt to discuss discharge plan. Pt is A&O x3 and stating that he will not go to a SNF. SW addressed concerns staff has with pt discharging home and who will be able to assist with needs. A list of SNF providers including quality and resource use data and consistent with the patient?s preferred geographic region, medical needs, and insurance network were provided from the [employer] [facility]. SW requested pt consider concerns and SNF options and SW will meet with pt again tomorrow. JANETTE Ferreira
[2024-11-03 17:47] LABS: Bedside Glucose 239 mg/dL (74-106)
[2024-11-03 19:00] VITALS: PULSE 120
[2024-11-03 22:00] VITALS: BP 130/83; PULSE 120; RESP 16; TEMP 36.1; O2SAT 96
--- NOTE | 2024-11-03 22:37 | PCM.HOSP.N ---
Hospitalist Note Patient with mildly tachycardia through the late afternoon and evening. Will administer 500 cc bolus and reassess. From review of medications not normally on BB therapy.
[2024-11-03 23:10] VITALS: BP 112/76; PULSE 118; RESP 17; TEMP 36.6; O2SAT 94
[2024-11-03] MEDS: 0.9% Saline Lock 10 ML Syringe IV (23:33)
[2024-11-04] MEDS: 0.9% Normal Saline (500mL Bag) 500 ML 999 ML IV
[2024-11-04] MEDS: Insulin Lispro 100 UNIT/ML INSULN.PEN SC ×5 (01:01→23:54)
[2024-11-04] MEDS: Vancomycin 125 MG/5 ML Susp PO.SYRINGE NG ×5 (01:05→23:54)
[2024-11-04 01:22] LABS: Bedside Glucose 295 mg/dL (74-106)
[2024-11-04 03:00] VITALS: PULSE 120
[2024-11-04 03:30] VITALS: BMI 35.2
[2024-11-04 05:20] LABS: Absolute Lymphocyte Count 1.41 X10^3/uL (0.83-4.51); Basophil# 0.15 X10^3/uL; Basophil% 0.5 % (0-1); Eosinophil# 0.32 X10^3/uL; Eosinophils% 1.1 % (0-5); Hematocrit 33.5 % (40-54); Hemoglobin 11.4 g/dL (13.0-16.5); Lymphocyte # 1.41 X10^3/ul (0.83-4.51); Lymphocyte % 4.9 % (19-41); Mean Corpuscular Hgb 31.3 pg (27.0-32.0); Mean Platelet Vol. 11.4 fl (6.2-12.0); Monocyte# 1.69 X10^3/uL; Monocyte% 5.9 % (0-10); NRBC Flagged by Analyzer 0 % (0-5); Neutrophil # 23.98 X10^3/uL (2.7-7.7); Neutrophil % 83.6 % (47-70); POSITIVE COUNT YES; POSITIVE DIFFERENTIAL YES; Platelet Count 61 K/mm3 (150-450); RBC Distribution Width CV 19.1 % (11.6-14.6); RBC Distribution Width SD 62.8 fl (35.1-43.9); Red Blood Count 3.64 M/mm3 (4.6-6.2); White Blood Count 28.7 K/mm3 (4.4-11.0)
[2024-11-04 05:43] LABS: ALB/GLOB Ratio 0.9 RATIO (0.9-2.4); AST(SGOT) 41 U/L (<=37); Alanine Aminotransfer ALT/SGPT 33 U/L (<=46); Albumin, Serum 2.5 g/dL (3.5-5.0); Alkaline Phosphatase 230 U/L (40-129); Ammonia 92.2 umol/L (16-60); Anion Gap 12 (5-15); BUN 20 mg/dL (4-19); BUN/Creat Ratio 18.6 RATIO (10-20); Calcium,Total 9.5 mg/dL (7.6-11.0); Carbon Dioxide 12.6 mmol/L (21.0-32.0); Chloride 107 mmol/L (98-108); Creatinine, Serum 1.05 mg/dL (0.70-1.20); Differential Indicated SCAN CRITERIA MET; EST Glomerular Filtration Rate 82 (>60); Estimated Creatinine Clearance 92.74 ml/min (50-250); Globulin 2.9 g/dL (2.2-4.2); Glucose 280 mg/dL (70-99); Potassium 3.6 mmol/L (3.3-5.1); Protein, Total 5.4 g/dL (5.9-8.4); Sodium Level 131 mmol/L (133-145); Total Bilirubin 2.25 mg/dL (0.00-1.30)
[2024-11-04] MEDS: Menthol/Lanolin/Calamine/Znox 113 GM Tube 1 APPLIC TOPICAL ×2 (05:52→11:44)
[2024-11-04 06:03] VITALS: BP 132/79; PULSE 109; RESP 17; TEMP 35.8; O2SAT 96
--- NOTE | 2024-11-04 06:42 | PCM.HOSP.N ---
Hospitalist Note Patient with 15 beat asymptomatic VT. Electrolytes recently checked, mag normal range, K normal range.
[2024-11-04 06:53] LABS: Bedside Glucose 248 mg/dL (74-106)
[2024-11-04 07:18] LABS: Differential Comment SCANNED; Platelet Estimate SLT DEC (ADEQ)
[2024-11-04] MEDS: Midodrine HCl 5 MG Tablet 10 MG PO ×3 (08:50→17:02)
[2024-11-04] MEDS: Folic Acid 1 MG Tablet PO (08:51)
[2024-11-04] MEDS: Ascorbic Acid 500 MG Tablet 1000 MG PO ×2 (08:51→17:03)
[2024-11-04] MEDS: Lactulose 20 GM/30 ML UDC 15 GM NG ×2 (09:07→21:19)
[2024-11-04] MEDS: Cholecalciferol (Vit D3) 125 MCG CAPSULE (5,000 UNITS) PO (09:08)
[2024-11-04] MEDS: Zinc Sulfate 50 mg zinc (220 mg) ORAL capsule PO (09:08)
[2024-11-04] MEDS: 0.9% Saline Lock 10 ML Syringe IV ×2 (09:09→21:24)
[2024-11-04] MEDS: Lidocaine 5% Patch 3 PATCH TOPICAL (09:09)
[2024-11-04] MEDS: metroNIDAZOLE 500 MG/100 ML BAG 100 MG IV ×2 (09:09→21:16)
[2024-11-04] MEDS: Lactobacillis Acidophilus 1 CAP PO ×4 (09:19→21:19)
[2024-11-04 10:00] VITALS: BP 139/93; PULSE 107; RESP 16; TEMP 36.2; O2SAT 98
[2024-11-04] MEDS: rifAXIMin 550 MG Tablet PO ×2 (10:01→21:19)
--- NOTE | 2024-11-04 11:05 | PCM.PN.HOSP ---
Reason for Visit Reason for Visit: Diagnoses Enterocolitis due to Clostridium difficile, not specified as recurrent (10/29/24) Sepsis, unspecified organism (10/29/24) Elevated white blood cell count, unspecified (10/29/24) Obesity, class 1 (10/29/24) Hypo-osmolality and hyponatremia (10/29/24) Acidosis, unspecified (10/29/24) Other chronic pain (10/29/24) Hypotension, unspecified (10/29/24) Dorsalgia, unspecified (10/29/24) Urinary tract infection, site not specified (10/29/24) Unspecified abdominal pain (10/29/24) Diarrhea, unspecified (10/29/24) Severe sepsis with septic shock (10/29/24) Personal history of urinary calculi (10/29/24) Subjective Subjective Patient seen level of sensorium improving. Patient WBC count however trending up necessitating subsequent stay in the hospital Objective Data Objective Data Vital Signs: Vital Signs Temp Pulse Resp BP Pulse Ox O2 Del Method 97.1 F L 107 H 16 139/93 H 98 Room Air 11/04/24 10:00 11/04/24 10:00 11/04/24 10:00 11/04/24 10:00 11/04/24 10:00 11/04/24 10:00 Oxygen Delivery Method Room Air Weight: 107.7 kg Body Mass Index (BMI) 35.2 Intake & Output: Intake and Output for Last 24 Hours 11/02/24 11/03/24 11/04/24 23:59 23:59 23:59 Intake Total 3406.3333 / 4096.3333 1590 / 1590 600 / 600 Output Total 1150 / 1450 600 / 600 650 / 650 Balance 2256.3333 / 2646.3333 990 / 990 -50 / -50 Lab / Micro Data 11/04/24 05:09 11/04/24 05:09 Labs: Laboratory Results - last 24 hr 11/03/24 10:36: Ammonia 63.5 H 11/03/24 12:33: POC Glucose 282 H 11/03/24 17:29: POC Glucose 239 H 11/04/24 01:00: POC Glucose 295 H 11/04/24 05:09: WBC 28.7 H, RBC 3.64 L, Hgb 11.4 L, Hct 33.5 L, MCV 92.0, MCH 31.3, MCHC 34.0, RDW Std Deviation 62.8 H, RDW Coeff of Francis 19.1 H, Plt Count 61 L, MPV 11.4, Immature Gran % (Auto) 4.000 H, Neut % (Auto) 83.6 H, Lymph % (Auto) 4.9 L, [place] % (Auto) 5.9, Eos % (Auto) 1.1, Baso % (Auto) 0.5, Absolute Neuts (auto) 24.0 H, Absolute Lymphs (auto) 1.41, Nucleated RBC % 0, Differential Comment SCANNED, Diff Path Review December, Platelet Estimate SLT DEC, Sodium 131 L, Potassium 3.6, Chloride 107, Carbon Dioxide 12.6 L, Anion Gap 12, BUN 20 H, Creatinine 1.05, Estim Creat Clear Calc 92.74, Est GFR (MDRD) Non-Af 82, BUN/Creatinine Ratio 18.6, Glucose 280 H, Calcium 9.5, Total Bilirubin 2.25 H, AST 41 H, ALT 33, Alkaline Phosphatase 230 H, Ammonia 92.2 H, Total Protein 5.4 L, Albumin 2.5 L, Globulin 2.9, Albumin/Globulin Ratio 0.9 11/04/24 05:55: POC Glucose 248 H Micro: Microbiology 10/29/24 01:00 Blood Culture (Wb) - Anticubital Left Blood Culture - Final No growth in 5 days. 10/29/24 00:32 Blood Culture (Wb) - Right Wrist Blood Culture - Final No growth in 5 days. 10/30/24 12:31 Stool Ova and Parasites - Final 10/29/24 02:01 Urine, Clean Catch Urine Culture - Final Culture exhibits no growth. 10/30/24 06:46 Stool Stool Lactoferrin - Final 10/30/24 06:46 Stool Enteric Bacteriology - Final 10/30/24 06:46 Stool C. difficile GDH Antigen & Toxins - Final Toxigenic C. difficile 10/30/24 06:46 Stool Clostridioides difficile (PCR) - Final Rhythm Strip Rhythm Strip: Sinus Rhythm Rate: 83 Ectopy: None Physical Exam Narrative GENERAL: Remains delirious HEENT: Atraumatic; normocephalic EYES; Anicteric, Normal Conjunctiva NECK; supple, normal thyroid, RESPIRATORY: Diminished to auscultation CARDIOVASCULAR: Regular S1 S2, GI: soft, normoactive bowel sounds, : Del Castillo catheter in place with hematuria EXTREMITIES: No edema, no clubbing, MUSCULOSKELETAL: no muscle wasting NEURO: Awake; no lateralizing signs. SKIN: No Rash PSYCH; Flat affect Assessment & Plan Assessment/Plan (1) Sepsis: QUALIFIERS: Sepsis acute organ dysfunction status: with acute organ dysfunction Sepsis type: sepsis due to unspecified organism Severe sepsis acute organ dysfunction type: unspecified Severe sepsis shock status: with septic shock Qualified Code(s): A41.9 - Sepsis, unspecified organism; R65.21 - Severe sepsis with septic shock (2) Acute UTI: PLAN: Plan Patient is a 59-year-old gentleman who presented with abdominal pain with diarrhea as well as back pain. An assessment of sepsis secondary to C. difficile colitis made admitted to a monitored bed for subsequent management 1. Sepsis ? Secondary to C. difficile colitis Patient managed with IV metronidazole as well as p.o. vancomycin via NG tube ?11/02/2024; patient WBC count still remains elevated NG tube discontinued by the patient himself ?11/03/2024; patient diarrhea still persist however this is complicated by the fact that patient is on lactulose for acute hepatic encephalopathy. WBC count however trending up. ? 11/04/2024; patient still has loose bowel movement however patient is on lactulose WBC count continues to rise complicating care 2. Acute hepatic encephalopathy ? Secondary to nonalcoholic fatty liver disease with cirrhosis. Patient was found to have severe hyperammonemia and NG tube was placed patient did receive lactulose ? 11/02/2024; level of sensorium improving 3. Acute metabolic encephalopathy ? Due to combination of sepsis hepatic encephalopathy as well as hyponatremia treatment of underlying etiology initiated 4. Cirrhosis of the liver ? Secondary to nonalcoholic fatty liver disease patient was seen in consultation by GI. Patient is on rifaximin continue 5. Hyponatremia ? Resolved 6. Obstructive sleep apnea ? Patient is on CPAP at night consistent use encouraged 7. Diabetes mellitus type II -patient's oral hypoglycemics held. Placed on long acting insulin, Accu-Cheks a.c. and at bedtime and covered with sliding scale insulin 8. GERD ? Patient is on PPI 9. Class I obesity with BMI of 32 ? Complicating care weight loss advised 10. Hypokalemia -Corrected per protocol ? 11/02/2024 potassium remains low additional replacement given 11. Chronic thrombocytopenia ? Secondary to chronic liver disease monitoring 12. Anemia ? Secondary to chronic disorder monitoring H&H and transfuse if patient becomes symptomatic or hemoglobin falls below 7 13. Nephrolithiasis with hematuria ? Patient is known to have a staghorn calculus and has a stent in place. Was seen in consultation by Dr Rascon with urology's notes and recommendations reviewed. Patient has Del Castillo catheter in place hematuria persist 14. DVT prophylaxis ? Avoid any use of chemoprophylaxis given patient low platelet count as well as hematuria 15. Hypophosphatemia ? 11/02/2024 corrected per protocol 16. Physical deconditioning ? Requested for PT OT eval and addiction social worker to assist with discharge planning Time spent in the patient's overall evaluation,decision-making process, review of diagnostic data, adjustment of management, discussion with other providers, nursing nursing and ancillary staff involved in patient's care documentation, 38 Minutes Charges/Coding Visit Charges Inpatient E&M: 96165 Subs Hosp L2
[2024-11-04 11:57] LABS: Bedside Glucose 243 mg/dL (74-106)
--- NOTE | 2024-11-04 15:30 | CASEMGMT ---
Social Work SW met with pt regarding ongoing conversation about discharge plan. Pt did work with PT today and was standby/supervision for ambulation of 60ft. Pt continues to state he does not want to go to a SNF but that he has spoken to his roommates and they would be agreeable for pt to return home with home health. RNCM andrew. JANETTE Roque
[2024-11-04 16:00] VITALS: BP 118/73; PULSE 115; RESP 16; TEMP 36.4; O2SAT 95
[2024-11-04 17:24] LABS: Bedside Glucose 253 mg/dL (74-106)
--- NOTE | 2024-11-04 18:46 | CASEMGMT ---
DAYSI HUGHES note: DAYSI HUGHES notified that pt wants HHC @ [facility]. Pt does not have a PCP, so unable to set up HHC. . No PCP. Unable to set up HHC. DAYSI HUGHES to room. Introduced self and role. Pt made aware HHC not able to be set up yet, as he has no PCP. Pt provided w/local PCP directory and [facility] clinic info. He is agreeable to appt being scheduled @ [facility]. Appt not made yet, as discharge date is TBD. Appt will need scheduled once dc date is determined. Pt made aware, once he gets established w/a PCP to discuss getting set up w/HHC with PCP. Holger WARNER RN, CM
[2024-11-04 19:00] VITALS: PULSE 116
[2024-11-04 21:09] VITALS: BP 110/82; PULSE 118; RESP 15; TEMP 36.6; O2SAT 95
[2024-11-05] VITALS (8 sets, daily range): BP systolic 110–126; BP diastolic 73–90; PULSE 115–125; RESP 14–18; TEMP 35.9–36.8; O2SAT 95–96; BMI 35.2
[2024-11-05 00:34] LABS: Bedside Glucose 269 mg/dL (74-106)
[2024-11-05 06:26] LABS: Absolute Lymphocyte Count 1.44 X10^3/uL (0.83-4.51); Absolute Neutrophil Count 17.3 X10^3/uL (2.0-7.7); Basophil# 0.05 X10^3/uL; Basophil% 0.2 % (0-1); Eosinophil# 0.49 X10^3/uL; Eosinophils% 2.3 % (0-5); Hematocrit 32.5 % (40-54); Hemoglobin 11.3 g/dL (13.0-16.5); Lymphocyte # 1.44 X10^3/ul (0.83-4.51); Lymphocyte % 6.7 % (19-41); Mean Corp Hgb Conc 34.8 g/dL (32-36); Mean Corpuscular Hgb 31.6 pg (27.0-32.0); Mean Corpuscular Volume 90.8 fL (80-94); Monocyte# 1.51 X10^3/uL; Monocyte% 7.1 % (0-10); NRBC Flagged by Analyzer 0 % (0-5); Neutrophil # 17.27 X10^3/uL (2.7-7.7); POSITIVE COUNT YES; POSITIVE DIFFERENTIAL YES; RBC Distribution Width CV 18.6 % (11.6-14.6); RBC Distribution Width SD 60.7 fl (35.1-43.9); Red Blood Count 3.58 M/mm3 (4.6-6.2); White Blood Count 21.3 K/mm3 (4.4-11.0)
[2024-11-05] MEDS: Insulin Lispro 100 UNIT/ML INSULN.PEN SC ×4 (06:56→23:49)
[2024-11-05] MEDS: Vancomycin 125 MG/5 ML Susp PO.SYRINGE NG ×4 (07:01→23:49)
[2024-11-05 07:02] LABS: ALB/GLOB Ratio 0.7 RATIO (0.9-2.4); AST(SGOT) 36 U/L (<=37); Alanine Aminotransfer ALT/SGPT 31 U/L (<=46); Albumin, Serum 2.4 g/dL (3.5-5.0); Alkaline Phosphatase 237 U/L (40-129); Anion Gap 10 (5-15); BUN 18 mg/dL (4-19); BUN/Creat Ratio 17.3 RATIO (10-20); Calcium,Total 9.8 mg/dL (7.6-11.0); Carbon Dioxide 14.5 mmol/L (21.0-32.0); Chloride 105 mmol/L (98-108); Creatinine, Serum 1.02 mg/dL (0.70-1.20); EST Glomerular Filtration Rate 85 (>60); Estimated Creatinine Clearance 95.64 ml/min (50-250); Globulin 3.2 g/dL (2.2-4.2); Glucose 287 mg/dL (70-99); Potassium 3.5 mmol/L (3.3-5.1); Protein, Total 5.6 g/dL (5.9-8.4); Sodium Level 129 mmol/L (133-145)
[2024-11-05 07:15] LABS: Bedside Glucose 245 mg/dL (74-106)
[2024-11-05 07:17] LABS: Differential Indicated SCAN CRITERIA MET; Platelet Count 48 K/mm3 (150-450); Total Bilirubin 2.17 mg/dL (0.00-1.30)
[2024-11-05 07:50] LABS: Polychromasia 1+
[2024-11-05 07:51] LABS: Anisocytosis 1+; Platelet Estimate MKD DEC (ADEQ)
[2024-11-05 09:14] LABS: Ammonia 99.8 umol/L (16-60)
--- NOTE | 2024-11-05 09:24 | PCM.PN.HOSP ---
Reason for Visit Reason for Visit: Diagnoses Enterocolitis due to Clostridium difficile, not specified as recurrent (10/29/24) Sepsis, unspecified organism (10/29/24) Elevated white blood cell count, unspecified (10/29/24) Obesity, class 1 (10/29/24) Hypo-osmolality and hyponatremia (10/29/24) Acidosis, unspecified (10/29/24) Other chronic pain (10/29/24) Hypotension, unspecified (10/29/24) Dorsalgia, unspecified (10/29/24) Urinary tract infection, site not specified (10/29/24) Unspecified abdominal pain (10/29/24) Diarrhea, unspecified (10/29/24) Severe sepsis with septic shock (10/29/24) Personal history of urinary calculi (10/29/24) Subjective Subjective Patient seen level of sensorium continues to improve. WBC count down to 21K. Patient still has intermittent loose bowel movement. Plan is to increase activity as tolerated Objective Data Objective Data Vital Signs: Vital Signs Temp Pulse Resp BP Pulse Ox O2 Del Method 98.3 F 120 H 14 119/73 96 Room Air 11/05/24 07:53 11/05/24 07:53 11/05/24 07:53 11/05/24 07:53 11/05/24 07:53 11/05/24 07:53 Oxygen Delivery Method Room Air Weight: 108.1 kg Body Mass Index (BMI) 35.2 Intake & Output: Intake and Output for Last 24 Hours 11/03/24 11/04/24 11/05/24 23:59 23:59 23:59 Intake Total 1590 / 1590 800 / 800 Output Total 600 / 600 1550 / 1550 125 / 125 Balance 990 / 990 -750 / -750 -125 / -125 Lab / Micro Data 11/05/24 06:10 11/05/24 06:10 Labs: Laboratory Results - last 24 hr 11/02/24 06:52: Diff Path Review N/A 11/04/24 11:36: POC Glucose 243 H 11/04/24 17:01: POC Glucose 253 H 11/04/24 23:52: POC Glucose 269 H 11/05/24 06:10: WBC 21.3 H, RBC 3.58 L, Hgb 11.3 L, Hct 32.5 L, MCV 90.8, MCH 31.6, MCHC 34.8, RDW Std Deviation 60.7 H, RDW Coeff of Francis 18.6 H, Plt Count 48 L*, MPV 11.0, Immature Gran % (Auto) 2.700 H, Neut % (Auto) 81.0 H, Lymph % (Auto) 6.7 L, [place] % (Auto) 7.1, Eos % (Auto) 2.3, Baso % (Auto) 0.2, Absolute Neuts (auto) 17.3 H, Absolute Lymphs (auto) 1.44, Nucleated RBC % 0, Platelet Estimate MKD DEC, Polychromasia 1+, Anisocytosis 1+, Sodium 129 L, Potassium 3.5, Chloride 105, Carbon Dioxide 14.5 L, Anion Gap 10, BUN 18, Creatinine 1.02, Estim Creat Clear Calc 95.64, Est GFR (MDRD) Non-Af 85, BUN/Creatinine Ratio 17.3, Glucose 287 H, Calcium 9.8, Total Bilirubin 2.17 H, AST 36, ALT 31, Alkaline Phosphatase 237 H, Ammonia 99.8 H, Total Protein 5.6 L, Albumin 2.4 L, Globulin 3.2, Albumin/Globulin Ratio 0.7 L 11/05/24 06:52: POC Glucose 245 H Micro: Microbiology 10/29/24 01:00 Blood Culture (Wb) - Anticubital Left Blood Culture - Final No growth in 5 days. 10/29/24 00:32 Blood Culture (Wb) - Right Wrist Blood Culture - Final No growth in 5 days. 10/30/24 12:31 Stool Ova and Parasites - Final 10/29/24 02:01 Urine, Clean Catch Urine Culture - Final Culture exhibits no growth. 10/30/24 06:46 Stool Stool Lactoferrin - Final 10/30/24 06:46 Stool Enteric Bacteriology - Final 10/30/24 06:46 Stool C. difficile GDH Antigen & Toxins - Final Toxigenic C. difficile 10/30/24 06:46 Stool Clostridioides difficile (PCR) - Final Rhythm Strip Rhythm Strip: Sinus Rhythm Rate: 83 Ectopy: None Physical Exam Narrative GENERAL: Much more interactive HEENT: Atraumatic; normocephalic EYES; Anicteric, Normal Conjunctiva NECK; supple, normal thyroid, RESPIRATORY: Diminished to auscultation CARDIOVASCULAR: Regular S1 S2, GI: soft, normoactive bowel sounds, : Del Castillo catheter in place with hematuria EXTREMITIES: No edema, no clubbing, MUSCULOSKELETAL: no muscle wasting NEURO: Awake; no lateralizing signs. SKIN: No Rash PSYCH; Flat affect Assessment & Plan Assessment/Plan (1) Sepsis: QUALIFIERS: Sepsis type: sepsis due to unspecified organism Sepsis acute organ dysfunction status: with acute organ dysfunction Severe sepsis acute organ dysfunction type: unspecified Severe sepsis shock status: with septic shock Qualified Code(s): A41.9 - Sepsis, unspecified organism; R65.21 - Severe sepsis with septic shock (2) Acute UTI: PLAN: Plan Patient is a 59-year-old gentleman who presented with abdominal pain with diarrhea as well as back pain. An assessment of sepsis secondary to C. difficile colitis made admitted to a monitored bed for subsequent management 1. Sepsis ? Secondary to C. difficile colitis Patient managed with IV metronidazole as well as p.o. vancomycin via NG tube ?11/02/2024; patient WBC count still remains elevated NG tube discontinued by the patient himself ?11/03/2024; patient diarrhea still persist however this is complicated by the fact that patient is on lactulose for acute hepatic encephalopathy. WBC count however trending up. ? 11/04/2024; patient still has loose bowel movement however patient is on lactulose WBC count continues to rise complicating care ? 11/05/2024; patient WBC count down to 20 1.3K 2. Acute hepatic encephalopathy ? Secondary to nonalcoholic fatty liver disease with cirrhosis. Patient was found to have severe hyperammonemia and NG tube was placed patient did receive lactulose ? 11/02/2024; level of sensorium improving ? 11/05/2024; patient level of sensorium continues to improve despite patient ammonia level being elevated 3. Acute metabolic encephalopathy ? Due to combination of sepsis hepatic encephalopathy as well as hyponatremia treatment of underlying etiology initiated 4. Cirrhosis of the liver ? Secondary to nonalcoholic fatty liver disease patient was seen in consultation by GI. Patient is on rifaximin continue 5. Hyponatremia ? Resolved 6. Obstructive sleep apnea ? Patient is on CPAP at night consistent use encouraged 7. Diabetes mellitus type II -patient's oral hypoglycemics held. Placed on long acting insulin, Accu-Cheks a.c. and at bedtime and covered with sliding scale insulin 8. GERD ? Patient is on PPI 9. Class I obesity with BMI of 32 ? Complicating care weight loss advised 10. Hypokalemia -Corrected per protocol ? 11/02/2024 potassium remains low additional replacement given 11. Chronic thrombocytopenia ? Secondary to chronic liver disease monitoring 12. Anemia ? Secondary to chronic disorder monitoring H&H and transfuse if patient becomes symptomatic or hemoglobin falls below 7 13. Nephrolithiasis with hematuria ? Patient is known to have a staghorn calculus and has a stent in place. Was seen in consultation by Dr Rascon with urology's notes and recommendations reviewed. Patient has Del Castillo catheter in place hematuria persist 14. DVT prophylaxis ? Avoid any use of chemoprophylaxis given patient low platelet count as well as hematuria 15. Hypophosphatemia ? 11/02/2024 corrected per protocol 16. Physical deconditioning ? Requested for PT OT eval and mental health social worker to assist with discharge planning ? 11/05/2024; plan is for patient to be discharged home when medically stable. Patient does not qualify for home health as he currently does not have a primary care physician he has been given a referral to [facility] 1 Time spent in the patient's overall evaluation,decision-making process, review of diagnostic data, adjustment of management, discussion with other providers, nursing nursing and ancillary staff involved in patient's care documentation, 38 Minutes Charges/Coding Visit Charges Inpatient E&M: 27787 Subs Hosp L2
[2024-11-05] MEDS: Lidocaine 5% Patch 3 PATCH TOPICAL (09:26)
[2024-11-05] MEDS: metroNIDAZOLE 500 MG/100 ML BAG 100 MG IV ×2 (09:26→21:24)
[2024-11-05] MEDS: Midodrine HCl 5 MG Tablet 10 MG PO ×3 (09:27→17:36)
[2024-11-05] MEDS: Lactulose 20 GM/30 ML UDC 15 GM NG ×2 (09:27→21:25)
[2024-11-05] MEDS: Cholecalciferol (Vit D3) 125 MCG CAPSULE (5,000 UNITS) PO (09:27)
[2024-11-05] MEDS: Lactobacillis Acidophilus 1 CAP PO ×4 (09:27→21:25)
[2024-11-05] MEDS: Ascorbic Acid 500 MG Tablet 1000 MG PO ×2 (09:27→17:36)
[2024-11-05] MEDS: Zinc Sulfate 50 mg zinc (220 mg) ORAL capsule PO (09:27)
[2024-11-05] MEDS: rifAXIMin 550 MG Tablet PO ×2 (09:28→21:25)
[2024-11-05] MEDS: Folic Acid 1 MG Tablet PO (09:28)
[2024-11-05] MEDS: 0.9% Saline Lock 10 ML Syringe IV ×2 (09:29→21:26)
--- NOTE | 2024-11-05 10:23 | CASEMGMT ---
Discharge Planning A list of HH providers including quality and resource use data and consistent with the patient's preferred geographic region, medical needs, and insurance network was created in [employer].? This list was provided to the RN SAUL. India Platt, Discharge Planning Asst.
--- NOTE | 2024-11-05 10:46 | CASEMGMT ---
Addendum entered by Julita Glover 11/05/24 15:41: No return call received from [facility]. This DAYSI HUGHES has attempted to contact [facility] several times today as well to schedule new pt appt so pt can f/u re: C. No answer for any of the calls. Original Note: Discharge Planning VM left for [facility] to scheduled new pt appt. Asked for them to call back Julita TAVAREZ CM. India Platt DC Planning Asst.
[2024-11-05] MEDS: Menthol/Lanolin/Calamine/Znox 113 GM Tube 1 APPLIC TOPICAL ×2 (12:48→21:26)
[2024-11-05 13:13] LABS: Bedside Glucose 253 mg/dL (74-106)
[2024-11-05 17:38] LABS: Bedside Glucose 264 mg/dL (74-106)
[2024-11-06 02:18] LABS: Bedside Glucose 292 mg/dL (74-106)
[2024-11-06 03:00] VITALS: PULSE 121
[2024-11-06 03:35] VITALS: BP 122/80; PULSE 109; RESP 18; TEMP 36.8; O2SAT 95
[2024-11-06 03:43] VITALS: BMI 34.9
[2024-11-06] MEDS: Vancomycin 125 MG/5 ML Susp PO.SYRINGE NG ×4 (05:50→23:35)
[2024-11-06] MEDS: Insulin Lispro 100 UNIT/ML INSULN.PEN SC ×4 (05:51→23:35)
[2024-11-06] MEDS: Menthol/Lanolin/Calamine/Znox 113 GM Tube 1 APPLIC TOPICAL ×3 (05:51→21:07)
[2024-11-06 06:40] LABS: Bedside Glucose 278 mg/dL (74-106)
[2024-11-06 07:04] LABS: Absolute Lymphocyte Count 1.39 X10^3/uL (0.83-4.51); Absolute Neutrophil Count 16.4 X10^3/uL (2.0-7.7); Basophil# 0.06 X10^3/uL; Basophil% 0.3 % (0-1); Eosinophil# 0.46 X10^3/uL; Eosinophils% 2.3 % (0-5); Hematocrit 32.6 % (40-54); Hemoglobin 11.5 g/dL (13.0-16.5); Lymphocyte # 1.39 X10^3/ul (0.83-4.51); Lymphocyte % 6.9 % (19-41); Mean Corp Hgb Conc 35.3 g/dL (32-36); Mean Corpuscular Hgb 32.4 pg (27.0-32.0); Mean Corpuscular Volume 91.8 fL (80-94); Mean Platelet Vol. 12.6 fl (6.2-12.0); Monocyte# 1.39 X10^3/uL; Monocyte% 6.9 % (0-10); NRBC Flagged by Analyzer 0 % (0-5); Neutrophil # 16.43 X10^3/uL (2.7-7.7); Neutrophil % 81.5 % (47-70); POSITIVE COUNT YES; Platelet Count 54 K/mm3 (150-450); RBC Distribution Width CV 18.6 % (11.6-14.6); RBC Distribution Width SD 62.6 fl (35.1-43.9); Red Blood Count 3.55 M/mm3 (4.6-6.2); White Blood Count 20.2 K/mm3 (4.4-11.0)
[2024-11-06 07:08] LABS: ALB/GLOB Ratio 0.8 RATIO (0.9-2.4); AST(SGOT) 32 U/L (<=37); Alanine Aminotransfer ALT/SGPT 29 U/L (<=46); Albumin, Serum 2.4 g/dL (3.5-5.0); Alkaline Phosphatase 244 U/L (40-129); Ammonia 93.5 umol/L (16-60); Anion Gap 11 (5-15); BUN 19 mg/dL (4-19); BUN/Creat Ratio 17.8 RATIO (10-20); Calcium,Total 9.8 mg/dL (7.6-11.0); Carbon Dioxide 14.9 mmol/L (21.0-32.0); Chloride 103 mmol/L (98-108); Creatinine, Serum 1.04 mg/dL (0.70-1.20); EST Glomerular Filtration Rate 83 (>60); Estimated Creatinine Clearance 93.54 ml/min (50-250); Globulin 3.1 g/dL (2.2-4.2); Glucose 311 mg/dL (70-99); Potassium 3.3 mmol/L (3.3-5.1); Protein, Total 5.4 g/dL (5.9-8.4); Sodium Level 129 mmol/L (133-145); Total Bilirubin 2.22 mg/dL (0.00-1.30)
--- NOTE | 2024-11-06 07:56 | PN.HOSP_ITS ---
Reason for Visit Reason for Visit: Diagnoses Enterocolitis due to Clostridium difficile, not specified as recurrent (10/29/24) Sepsis, unspecified organism (10/29/24) Elevated white blood cell count, unspecified (10/29/24) Obesity, class 1 (10/29/24) Hypo-osmolality and hyponatremia (10/29/24) Acidosis, unspecified (10/29/24) Other chronic pain (10/29/24) Hypotension, unspecified (10/29/24) Dorsalgia, unspecified (10/29/24) Urinary tract infection, site not specified (10/29/24) Unspecified abdominal pain (10/29/24) Diarrhea, unspecified (10/29/24) Severe sepsis with septic shock (10/29/24) Personal history of urinary calculi (10/29/24) Subjective Subjective Patient seen continues to improve clinically. Do anticipate discharge in 1 to 2 days if patient continues on the current trajectory Objective Data Objective Data Vital Signs: Vital Signs Temp Pulse Resp BP Pulse Ox O2 Del Method 98.2 F 109 H 18 122/80 H 95 Room Air 11/06/24 03:35 11/06/24 03:35 11/06/24 03:35 11/06/24 03:35 11/06/24 03:35 11/06/24 03:35 Oxygen Delivery Method Room Air Weight: 107.5 kg Body Mass Index (BMI) 34.9 Intake & Output: Intake and Output for Last 24 Hours 11/04/24 11/05/24 11/06/24 23:59 23:59 23:59 Intake Total 800 / 800 1300 / 1300 100 / 100 Output Total 1550 / 1550 200 / 200 Balance -750 / -750 1100 / 1100 100 / 100 Lab / Micro Data 11/06/24 05:35 11/06/24 05:35 Labs: Laboratory Results - last 24 hr 11/02/24 06:52: Diff Path Review N/A 11/05/24 06:10: Ammonia 99.8 H 11/05/24 12:46: POC Glucose 253 H 11/05/24 17:20: POC Glucose 264 H 11/05/24 22:36: POC Glucose 292 H 11/06/24 05:35: Sodium 129 L, Potassium 3.3, Chloride 103, Carbon Dioxide 14.9 L , Anion Gap 11, BUN 19, Creatinine 1.04, Estim Creat Clear Calc 93.54, Est GFR (MDRD) Non-Af 83, BUN/Creatinine Ratio 17.8, Glucose 311 H, Calcium 9.8, Total Bilirubin 2.22 H, AST 32, ALT 29, Alkaline Phosphatase 244 H, Ammonia 93.5 H, T otal Protein 5.4 L, Albumin 2.4 L, Globulin 3.1, Albumin/Globulin Ratio 0.8 L 11/06/24 05:50: POC Glucose 278 H Micro: Microbiology 10/29/24 01:00 Blood Culture (Wb) - Anticubital Left Blood Culture - Final No growth in 5 days. 10/29/24 00:32 Blood Culture (Wb) - Right Wrist Blood Culture - Final No growth in 5 days. 10/30/24 12:31 Stool Ova and Parasites - Final 10/29/24 02:01 Urine, Clean Catch Urine Culture - Final Culture exhibits no growth. 10/30/24 06:46 Stool Stool Lactoferrin - Final 10/30/24 06:46 Stool Enteric Bacteriology - Final 10/30/24 06:46 Stool C. difficile GDH Antigen & Toxins - Final Toxigenic C. difficile 10/30/24 06:46 Stool Clostridioides difficile (PCR) - Final Rhythm Strip Rhythm Strip: Sinus Rhythm Rate: 83 Ectopy: None Physical Exam Narrative GENERAL: Much more interactive HEENT: Atraumatic; normocephalic EYES; Anicteric, Normal Conjunctiva NECK; supple, normal thyroid, RESPIRATORY: Diminished to auscultation CARDIOVASCULAR: Regular S1 S2, GI: soft, normoactive bowel sounds, : Del Castillo catheter in place with hematuria EXTREMITIES: No edema, no clubbing, MUSCULOSKELETAL: no muscle wasting NEURO: Awake; no lateralizing signs. SKIN: No Rash PSYCH; Flat affect Assessment & Plan Assessment/Plan (1) Sepsis: QUALIFIERS: Sepsis acute organ dysfunction status: with acute organ dysfunction Sepsis type: sepsis due to unspecified organism Severe sepsis acute organ dysfunction type: unspecified Severe sepsis shock status: w ith septic shock Qualified Code(s): A41.9 - Sepsis, unspecified organism; R65.21 - Severe sepsis with septic shock (2) Acute UTI: PLAN: Plan Patient is a 59-year-old gentleman who presented with abdominal pain with diarrhea as well as back pain. An assessment of sepsis secondary to C. difficile colitis made admitted to a monitored bed for subsequent management 1. Sepsis ? Secondary to C. difficile colitis Patient managed with IV metronidazole as well as p.o. vancomycin via NG tube ?11/02/2024; patient WBC count still remains elevated NG tube discontinued by the patient himself ?11/03/2024; patient diarrhea still persist however this is complicated by the fact that patient is on lactulose for acute hepatic encephalopathy. WBC count however trending up. ? 11/04/2024; patient still has loose bowel movement however patient is on lactulose WBC count continues to rise complicating care ? 11/05/2024; patient WBC count down to 20 1.3K ? 11/06/2024; WBC count remains stable at 20K 2. Acute hepatic encephalopathy ? Secondary to nonalcoholic fatty liver disease with cirrhosis. Patient was found to have severe hyperammonemia and NG tube was placed patient did receive lactulose ? 11/02/2024; level of sensorium improving ? 11/05/2024; patient level of sensorium continues to improve despite patient ammonia level being elevated ? 11/06/2024; patient clinical condition continues to improve 3. Acute metabolic encephalopathy ? Due to combination of sepsis hepatic encephalopathy as well as hyponatremia treatment of underlying etiology initiated 4. Cirrhosis of the liver ? Secondary to nonalcoholic fatty liver disease patient was seen in consultation by GI. Patient is on rifaximin continue 5. Hyponatremia ? Resolved 6. Obstructive sleep apnea ? Patient is on CPAP at night consistent use encouraged 7. Diabetes mellitus type II -patient's oral hypoglycemics held. Placed on long acting insulin, Accu-Cheks a.c. and at bedtime and covered with sliding scale insulin 8. GERD ? Patient is on PPI 9. Class I obesity with BMI of 32 ? Complicating care weight loss advised 10. Hypokalemia -Corrected per protocol ? 11/02/2024 potassium remains low additional replacement given 11. Chronic thrombocytopenia ? Secondary to chronic liver disease monitoring 12. Anemia ? Secondary to chronic disorder monitoring H&H and transfuse if patient becomes symptomatic or hemoglobin falls below 7 13. Nephrolithiasis with hematuria ? Patient is known to have a staghorn calculus and has a stent in place. Was seen in consultation by Dr Rascon with urology's notes and recommendations reviewed. Patient has Delc Astillo catheter in place hematuria persist 14. DVT prophylaxis ? Avoid any use of chemoprophylaxis given patient low platelet count as well as hematuria 15. Hypophosphatemia ? 11/02/2024 corrected per protocol 16. Physical deconditioning ? Requested for PT OT eval and social worker school to assist with discharge planning ? 11/05/2024; plan is for patient to be discharged home when medically stable. Patient does not qualify for home health as he currently does not have a primary care physician he has been given a referral [facility] 1 Time spent in the patient's overall evaluation,decision-making process, review of diagnostic data, adjustment of management, discussion with other providers, nursing nursing and ancillary staff involved in patient's care documentation, 36 Minutes Charges/Coding Visit Charges Inpatient E&M: 19798 Subs Hosp L2
[2024-11-06 09:04] VITALS: BP 111/78; PULSE 60; RESP 16; TEMP 36.6; O2SAT 98
[2024-11-06] MEDS: rifAXIMin 550 MG Tablet PO ×2 (09:06→21:07)
[2024-11-06] MEDS: Ascorbic Acid 500 MG Tablet 1000 MG PO ×2 (09:06→17:24)
[2024-11-06] MEDS: Midodrine HCl 5 MG Tablet 10 MG PO ×3 (09:06→17:24)
[2024-11-06] MEDS: metroNIDAZOLE 500 MG/100 ML BAG 100 MG IV ×2 (09:06→21:07)
[2024-11-06] MEDS: Folic Acid 1 MG Tablet PO (09:07)
[2024-11-06] MEDS: Lidocaine 5% Patch 3 PATCH TOPICAL (09:07)
[2024-11-06] MEDS: Zinc Sulfate 50 mg zinc (220 mg) ORAL capsule PO (09:07)
[2024-11-06] MEDS: Cholecalciferol (Vit D3) 125 MCG CAPSULE (5,000 UNITS) PO (09:07)
[2024-11-06] MEDS: Lactulose 20 GM/30 ML UDC 15 GM NG ×2 (09:07→21:07)
[2024-11-06] MEDS: Lactobacillis Acidophilus 1 CAP PO ×4 (09:07→21:07)
[2024-11-06 10:18] LABS: Differential Indicated SCAN CRITERIA MET
[2024-11-06] MEDS: Mag Hydrox/Al Hydrox/Simeth 30 ML UDC PO ×2 (12:29→17:29)
[2024-11-06 12:43] LABS: Bedside Glucose 276 mg/dL (74-106)
[2024-11-06 12:59] LABS: Platelet Estimate MOD DEC (ADEQ)
[2024-11-06 15:00] VITALS: BP 141/83; PULSE 114; RESP 16; TEMP 36.6; O2SAT 97
[2024-11-06 17:43] LABS: Bedside Glucose 288 mg/dL (74-106)
[2024-11-06 21:00] VITALS: BP 124/82; PULSE 110; RESP 16; TEMP 36.6; O2SAT 98
[2024-11-06] MEDS: 0.9% Saline Lock 10 ML Syringe IV ×2 (21:08→23:36)
[2024-11-07 00:01] LABS: Bedside Glucose 312 mg/dL (74-106)
[2024-11-07 03:15] VITALS: BP 114/84; PULSE 104; RESP 18; TEMP 36.6; O2SAT 97
[2024-11-07 05:24] VITALS: BMI 35.9
[2024-11-07] MEDS: Insulin Lispro 100 UNIT/ML INSULN.PEN SC ×3 (05:45→17:09)
[2024-11-07] MEDS: Acetaminophen 325 MG Tablet 650 MG PO (05:45)
[2024-11-07] MEDS: Menthol/Lanolin/Calamine/Znox 113 GM Tube 1 APPLIC TOPICAL ×3 (05:46→20:59)
[2024-11-07] MEDS: Vancomycin 125 MG/5 ML Susp PO.SYRINGE NG ×3 (05:46→17:09)
[2024-11-07 06:10] LABS: Bedside Glucose 286 mg/dL (74-106)
[2024-11-07 08:21] VITALS: BP 113/74; PULSE 112; RESP 16; TEMP 36.4; O2SAT 95
[2024-11-07] MEDS: rifAXIMin 550 MG Tablet PO ×2 (08:24→21:01)
[2024-11-07] MEDS: Lactulose 20 GM/30 ML UDC 15 GM NG ×2 (08:24→21:00)
[2024-11-07] MEDS: metroNIDAZOLE 500 MG/100 ML BAG 100 MG IV ×2 (08:25→21:00)
[2024-11-07] MEDS: Midodrine HCl 5 MG Tablet 10 MG PO ×3 (08:25→17:09)
[2024-11-07] MEDS: Cholecalciferol (Vit D3) 125 MCG CAPSULE (5,000 UNITS) PO (08:25)
[2024-11-07] MEDS: Lidocaine 5% Patch 3 PATCH TOPICAL (08:25)
[2024-11-07] MEDS: Lactobacillis Acidophilus 1 CAP PO ×4 (08:25→20:59)
[2024-11-07] MEDS: Ascorbic Acid 500 MG Tablet 1000 MG PO ×2 (08:25→17:09)
[2024-11-07] MEDS: Zinc Sulfate 50 mg zinc (220 mg) ORAL capsule PO (08:25)
[2024-11-07] MEDS: Folic Acid 1 MG Tablet PO (08:25)
--- NOTE | 2024-11-07 09:13 | PCM.PN.HOSP ---
Reason for Visit Reason for Visit: Diagnoses Enterocolitis due to Clostridium difficile, not specified as recurrent (10/29/24) Sepsis, unspecified organism (10/29/24) Elevated white blood cell count, unspecified (10/29/24) Obesity, class 1 (10/29/24) Hypo-osmolality and hyponatremia (10/29/24) Acidosis, unspecified (10/29/24) Other chronic pain (10/29/24) Hypotension, unspecified (10/29/24) Dorsalgia, unspecified (10/29/24) Urinary tract infection, site not specified (10/29/24) Unspecified abdominal pain (10/29/24) Diarrhea, unspecified (10/29/24) Severe sepsis with septic shock (10/29/24) Personal history of urinary calculi (10/29/24) Subjective Subjective Patient seen still experiencing loose bowel movement. Patient WBC count also trending down. Objective Data Objective Data Vital Signs: Vital Signs Temp Pulse Resp BP Pulse Ox O2 Del Method 97.5 F L 112 H 16 113/74 95 Room Air 11/07/24 08:21 11/07/24 08:21 11/07/24 08:21 11/07/24 08:21 11/07/24 08:21 11/07/24 08:21 Oxygen Delivery Method Room Air Weight: 110.4 kg Body Mass Index (BMI) 35.9 Intake & Output: Intake and Output for Last 24 Hours 11/05/24 11/06/24 11/07/24 23:59 23:59 23:59 Intake Total 1300 / 1300 300 / 300 Output Total 200 / 200 350 / 350 Balance 1100 / 1100 300 / 150 -350 / -350 Lab / Micro Data 11/07/24 09:45 11/06/24 05:35 Labs: Laboratory Results - last 24 hr 11/06/24 05:35: WBC 20.2 H, RBC 3.55 L, Hgb 11.5 L, Hct 32.6 L, MCV 91.8, MCH 32.4 H, MCHC 35.3, RDW Std Deviation 62.6 H, RDW Coeff of Francis 18.6 H, Plt Count 54 L, MPV 12.6 H, Immature Gran % (Auto) 2.100 H, Neut % (Auto) 81.5 H, Lymph % (Auto) 6.9 L, Franklin % (Auto) 6.9, Eos % (Auto) 2.3, Baso % (Auto) 0.3, Absolute Neuts (auto) 16.4 H, Absolute Lymphs (auto) 1.39, Nucleated RBC % 0, Platelet Estimate MOD DEC 11/06/24 12:06: POC Glucose 276 H 11/06/24 17:23: POC Glucose 288 H 11/06/24 23:34: POC Glucose 312 H 11/07/24 05:44: POC Glucose 286 H Micro: Microbiology 10/29/24 01:00 Blood Culture (Wb) - Anticubital Left Blood Culture - Final No growth in 5 days. 10/29/24 00:32 Blood Culture (Wb) - Right Wrist Blood Culture - Final No growth in 5 days. 10/30/24 12:31 Stool Ova and Parasites - Final 10/29/24 02:01 Urine, Clean Catch Urine Culture - Final Culture exhibits no growth. 10/30/24 06:46 Stool Stool Lactoferrin - Final 10/30/24 06:46 Stool Enteric Bacteriology - Final 10/30/24 06:46 Stool C. difficile GDH Antigen & Toxins - Final Toxigenic C. difficile 10/30/24 06:46 Stool Clostridioides difficile (PCR) - Final Rhythm Strip Rhythm Strip: Sinus Rhythm Rate: 83 Ectopy: None Physical Exam Narrative GENERAL: Much more interactive HEENT: Atraumatic; normocephalic EYES; Anicteric, Normal Conjunctiva NECK; supple, normal thyroid, RESPIRATORY: Diminished to auscultation CARDIOVASCULAR: Regular S1 S2, GI: soft, normoactive bowel sounds, : Del Castillo catheter in place with hematuria EXTREMITIES: No edema, no clubbing, MUSCULOSKELETAL: no muscle wasting NEURO: Awake; no lateralizing signs. SKIN: No Rash PSYCH; Flat affect Assessment & Plan Assessment/Plan (1) Sepsis: QUALIFIERS: Sepsis acute organ dysfunction status: with acute organ dysfunction Sepsis type: sepsis due to unspecified organism Severe sepsis acute organ dysfunction type: unspecified Severe sepsis shock status: with septic shock Qualified Code(s): A41.9 - Sepsis, unspecified organism; R65.21 - Severe sepsis with septic shock (2) Acute UTI: PLAN: Plan Patient is a 59-year-old gentleman who presented with abdominal pain with diarrhea as well as back pain. An assessment of sepsis secondary to C. difficile colitis made admitted to a monitored bed for subsequent management 1. Sepsis ? Secondary to C. difficile colitis Patient managed with IV metronidazole as well as p.o. vancomycin via NG tube ?11/02/2024; patient WBC count still remains elevated NG tube discontinued by the patient himself ?11/03/2024; patient diarrhea still persist however this is complicated by the fact that patient is on lactulose for acute hepatic encephalopathy. WBC count however trending up. ? 11/04/2024; patient still has loose bowel movement however patient is on lactulose WBC count continues to rise complicating care ? 11/05/2024; patient WBC count down to 20 1.3K ? 11/06/2024; WBC count remains stable at 20K ?; patient finally responded to treatment with significant improvement in WBC count. He still however has loose bowel movement of note patient is on lactulose for encephalopathy 2. Acute hepatic encephalopathy ? Secondary to nonalcoholic fatty liver disease with cirrhosis. Patient was found to have severe hyperammonemia and NG tube was placed patient did receive lactulose ? 11/02/2024; level of sensorium improving ? 11/05/2024; patient level of sensorium continues to improve despite patient ammonia level being elevated ? 11/06/2024; patient clinical condition continues to improve 3. Acute metabolic encephalopathy ? Due to combination of sepsis hepatic encephalopathy as well as hyponatremia treatment of underlying etiology initiated 4. Cirrhosis of the liver ? Secondary to nonalcoholic fatty liver disease patient was seen in consultation by GI. Patient is on rifaximin continue 5. Hyponatremia ? Resolved 6. Obstructive sleep apnea ? Patient is on CPAP at night consistent use encouraged 7. Diabetes mellitus type II -patient's oral hypoglycemics held. Placed on long acting insulin, Accu-Cheks a.c. and at bedtime and covered with sliding scale insulin 8. GERD ? Patient is on PPI 9. Class I obesity with BMI of 32 ? Complicating care weight loss advised 10. Hypokalemia -Corrected per protocol ? 11/02/2024 potassium remains low additional replacement given 11. Chronic thrombocytopenia ? Secondary to chronic liver disease monitoring 12. Anemia ? Secondary to chronic disorder monitoring H&H and transfuse if patient becomes symptomatic or hemoglobin falls below 7 13. Nephrolithiasis with hematuria ? Patient is known to have a staghorn calculus and has a stent in place. Was seen in consultation by Dr Rascon with urology's notes and recommendations reviewed. Patient has Del Castillo catheter in place hematuria persist 14. DVT prophylaxis ? Avoid any use of chemoprophylaxis given patient low platelet count as well as hematuria 15. Hypophosphatemia ? 11/02/2024 corrected per protocol 16. Physical deconditioning ? Requested for PT OT eval and social media designer to assist with discharge planning ? 11/05/2024; plan is for patient to be discharged home when medically stable. Patient does not qualify for home health as he currently does not have a primary care physician he has been given a referral to [facility] 1 Time spent in the patient's overall evaluation,decision-making process, review of diagnostic data, adjustment of management, discussion with other providers, nursing nursing and ancillary staff involved in patient's care documentation, 36 Minutes Charges/Coding Visit Charges Inpatient E&M: 37196 Subs Hosp L2
[2024-11-07 10:15] LABS: Absolute Lymphocyte Count 1.36 X10^3/uL (0.83-4.51); Basophil# 0.06 X10^3/uL; Basophil% 0.3 % (0-1); Eosinophil# 0.47 X10^3/uL; Eosinophils% 2.5 % (0-5); Hematocrit 33.6 % (40-54); Hemoglobin 11.6 g/dL (13.0-16.5); Lymphocyte # 1.36 X10^3/ul (0.83-4.51); Lymphocyte % 7.3 % (19-41); Mean Corp Hgb Conc 34.5 g/dL (32-36); Mean Corpuscular Hgb 32.2 pg (27.0-32.0); Mean Corpuscular Volume 93.3 fL (80-94); Mean Platelet Vol. 12.9 fl (6.2-12.0); Monocyte# 1.42 X10^3/uL; Monocyte% 7.6 % (0-10); NRBC Flagged by Analyzer 0 % (0-5); Neutrophil % 80.8 % (47-70); POSITIVE COUNT YES; Platelet Count 51 K/mm3 (150-450); RBC Distribution Width CV 18.4 % (11.6-14.6); RBC Distribution Width SD 62.6 fl (35.1-43.9); White Blood Count 18.6 K/mm3 (4.4-11.0)
[2024-11-07 10:32] LABS: Differential Indicated SCAN CRITERIA MET
[2024-11-07 10:46] LABS: ALB/GLOB Ratio 0.8 RATIO (0.9-2.4); AST(SGOT) 38 U/L (<=37); Alanine Aminotransfer ALT/SGPT 29 U/L (<=46); Albumin, Serum 2.5 g/dL (3.5-5.0); Alkaline Phosphatase 271 U/L (40-129); Anion Gap 11 (5-15); BUN 18 mg/dL (4-19); BUN/Creat Ratio 16.5 RATIO (10-20); Calcium,Total 9.4 mg/dL (7.6-11.0); Carbon Dioxide 12.9 mmol/L (21.0-32.0); Chloride 102 mmol/L (98-108); EST Glomerular Filtration Rate 78 (>60); Estimated Creatinine Clearance 89.64 ml/min (50-250); Globulin 3.1 g/dL (2.2-4.2); Glucose 286 mg/dL (70-99); Magnesium 2.3 mg/dL (1.5-2.2); Phosphorus 1.7 mg/dL (2.7-4.5); Potassium 3.6 mmol/L (3.3-5.1); Protein, Total 5.6 g/dL (5.9-8.4); Sodium Level 127 mmol/L (133-145); Total Bilirubin 3.03 mg/dL (0.00-1.30)
[2024-11-07 10:54] LABS: Anisocytosis 1+; Ovalocyte 1+; Platelet Estimate MOD DEC (ADEQ); Polychromasia 1+
[2024-11-07 11:54] LABS: Bedside Glucose 255 mg/dL (74-106)
[2024-11-07 14:00] VITALS: BP 123/82; PULSE 111; RESP 16; TEMP 36.8; O2SAT 99
[2024-11-07] MEDS: Nystatin Powder 15gm Bottle 1 APPLIC TOPICAL ×2 (14:03→21:00)
[2024-11-07 17:44] LABS: Bedside Glucose 281 mg/dL (74-106)
[2024-11-07 20:50] VITALS: BP 121/80; PULSE 108; RESP 16; TEMP 36.4; O2SAT 100
[2024-11-07] MEDS: 0.9% Saline Lock 10 ML Syringe IV (21:02)
[2024-11-08] MEDS: Vancomycin 125 MG/5 ML Susp PO.SYRINGE NG ×4 (00:33→18:13)
[2024-11-08] MEDS: Insulin Lispro 100 UNIT/ML INSULN.PEN SC ×5 (00:33→21:30)
[2024-11-08 00:55] LABS: Bedside Glucose 289 mg/dL (74-106)
[2024-11-08 03:10] VITALS: BP 114/75; PULSE 104; RESP 18; TEMP 36.6; O2SAT 97
[2024-11-08 03:12] VITALS: BMI 36.7
[2024-11-08] MEDS: Nystatin Powder 15gm Bottle 1 APPLIC TOPICAL ×3 (06:00→21:08)
[2024-11-08] MEDS: Menthol/Lanolin/Calamine/Znox 113 GM Tube 1 APPLIC TOPICAL ×3 (06:01→21:08)
[2024-11-08 06:22] LABS: Bedside Glucose 297 mg/dL (74-106)
[2024-11-08 06:57] LABS: Hematocrit 31.2 % (40-54); Hemoglobin 10.9 g/dL (13.0-16.5); Mean Corp Hgb Conc 34.9 g/dL (32-36); Mean Corpuscular Hgb 32.3 pg (27.0-32.0); Mean Corpuscular Volume 92.6 fL (80-94); POSITIVE COUNT YES; RBC Distribution Width CV 17.9 % (11.6-14.6); RBC Distribution Width SD 61.2 fl (35.1-43.9); Red Blood Count 3.37 M/mm3 (4.6-6.2); White Blood Count 17.9 K/mm3 (4.4-11.0)
[2024-11-08 07:10] LABS: Anion Gap 11 (5-15); BUN 20 mg/dL (4-19); BUN/Creat Ratio 15.9 RATIO (10-20); Calcium,Total 9.1 mg/dL (7.6-11.0); Carbon Dioxide 13.4 mmol/L (21.0-32.0); Chloride 102 mmol/L (98-108); Creatinine, Serum 1.26 mg/dL (0.70-1.20); EST Glomerular Filtration Rate 66 (>60); Estimated Creatinine Clearance 79.16 ml/min (50-250); Glucose 349 mg/dL (70-99); Platelet Count 45 K/mm3 (150-450); Potassium 3.6 mmol/L (3.3-5.1); Sodium Level 126 mmol/L (133-145)
[2024-11-08 07:11] LABS: Scan Indicated on CBC? Y/N YES- FLAGS NOTED
[2024-11-08] MEDS: Ondansetron 4 MG/2 ML Vial IV (08:35)
[2024-11-08 09:00] VITALS: O2SAT 97
[2024-11-08 09:10] VITALS: BP 126/81; PULSE 114; RESP 16; TEMP 36.7; O2SAT 95
[2024-11-08] MEDS: rifAXIMin 550 MG Tablet PO ×2 (10:23→21:07)
[2024-11-08] MEDS: Zinc Sulfate 50 mg zinc (220 mg) ORAL capsule PO (10:23)
[2024-11-08] MEDS: Lactobacillis Acidophilus 1 CAP PO ×4 (10:23→21:07)
[2024-11-08] MEDS: Midodrine HCl 5 MG Tablet 10 MG PO ×2 (10:23→13:04)
[2024-11-08] MEDS: Cholecalciferol (Vit D3) 125 MCG CAPSULE (5,000 UNITS) PO (10:23)
[2024-11-08] MEDS: Ascorbic Acid 500 MG Tablet 1000 MG PO (10:23)
[2024-11-08] MEDS: Lactulose 20 GM/30 ML UDC 15 GM NG ×2 (10:24→21:07)
[2024-11-08] MEDS: Folic Acid 1 MG Tablet PO (10:24)
[2024-11-08] MEDS: Lidocaine 5% Patch 3 PATCH TOPICAL (10:25)
[2024-11-08] MEDS: metroNIDAZOLE 500 MG/100 ML BAG 100 MG IV ×2 (10:25→21:08)
[2024-11-08] MEDS: Mag Hydrox/Al Hydrox/Simeth 30 ML UDC PO (11:21)
[2024-11-08 13:17] LABS: Bedside Glucose 322 mg/dL (74-106)
--- NOTE | 2024-11-08 14:41 | PN.HOSP_ITS ---
Reason for Visit Reason for Visit: Diagnoses Enterocolitis due to Clostridium difficile, not specified as recurrent (10/29/24) Sepsis, unspecified organism (10/29/24) Elevated white blood cell count, unspecified (10/29/24) Obesity, class 1 (10/29/24) Hypo-osmolality and hyponatremia (10/29/24) Acidosis, unspecified (10/29/24) Other chronic pain (10/29/24) Hypotension, unspecified (10/29/24) Dorsalgia, unspecified (10/29/24) Urinary tract infection, site not specified (10/29/24) Unspecified abdominal pain (10/29/24) Diarrhea, unspecified (10/29/24) Severe sepsis with septic shock (10/29/24) Personal history of urinary calculi (10/29/24) Subjective Subjective Patient reports that he had some nausea earlier and has been having lower chest/upper abdominal pain, does report that he thinks he is supposed to be on Protonix but is not sure if he is getting that now, he is unsure if this feels like reflux/heartburn or not, still having bowel movements, at times exam not feeling nauseous, denies any lower abdominal pain. Reports that the pain in upper abdomen/lower chest started earlier when he got up and moved to the chair and came back, has a hard time describing it reports it has been somewhat persistent, did get some Maalox and notes that this was somewhat helpful Objective Data Objective Data Vital Signs: Vital Signs Temp Pulse Resp BP Pulse Ox O2 Del Method 98.0 F 114 H 16 126/81 H 95 Room Air 11/08/24 09:10 11/08/24 09:10 11/08/24 09:10 11/08/24 09:10 11/08/24 09:10 11/08/24 09:10 Oxygen Delivery Method Room Air Weight: 112.9 kg Body Mass Index (BMI) 36.7 Intake & Output: Intake and Output for Last 24 Hours 11/06/24 11/07/24 11/08/24 23:59 23:59 23:59 Intake Total 300 / 300 200 / 200 460 / 460 Output Total 500 / 500 250 / 250 Balance 300 / 150 -300 / -300 210 / 210 Lab / Micro Data 11/08/24 05:47 11/08/24 05:47 Labs: Laboratory Results - last 24 hr 11/04/24 05:09: Diff Path Review N/A 11/07/24 17:08: POC Glucose 281 H 11/08/24 00:31: POC Glucose 289 H 11/08/24 05:47: WBC 17.9 H, RBC 3.37 L, Hgb 10.9 L, Hct 31.2 L, MCV 92.6, MCH 32.3 H, MCHC 34.9, RDW Std Deviation 61.2 H, RDW Coeff of Francis 17.9 H, Plt Count 45 L*, MPV 12.0, Diff Path Review December, Sodium 126 L, Potassium 3.6, Chloride 102, Carbon Dioxide 13.4 L, Anion Gap 11, BUN 20 H, Creatinine 1.26 H, Estim Creat Clear Calc 79.16, Est GFR (MDRD) Non-Af 66, BUN/Creatinine Ratio 15.9, Glucose 349 H, Calcium 9.1 11/08/24 05:59: POC Glucose 297 H 11/08/24 12:54: POC Glucose 322 H Micro: Microbiology 10/29/24 01:00 Blood Culture (Wb) - Anticubital Left Blood Culture - Final No growth in 5 days. 10/29/24 00:32 Blood Culture (Wb) - Right Wrist Blood Culture - Final No growth in 5 days. 10/30/24 12:31 Stool Ova and Parasites - Final 10/29/24 02:01 Urine, Clean Catch Urine Culture - Final Culture exhibits no growth. 10/30/24 06:46 Stool Stool Lactoferrin - Final 10/30/24 06:46 Stool Enteric Bacteriology - Final 10/30/24 06:46 Stool C. difficile GDH Antigen & Toxins - Final Toxigenic C. difficile 10/30/24 06:46 Stool Clostridioides difficile (PCR) - Final Rhythm Strip Rhythm Strip: Sinus Rhythm Rate: 83 Ectopy: None Physical Exam Narrative General: Alert, answers questions appropriately though somewhat poor historian HEENT: Atraumatic Eyes: Anicteric, normal conjunctiva, extraocular movements grossly intact Neck: Supple Respiratory: No overt wheezes or rhonchi, normal respiratory effort Cardiovascular: Low-grade sinus tachycardia GI: Soft, nontender in the lower quadrants but does have some epigastric pain with deep palpation without any appreciated rebound, guarding, rigidity Extremities: 1+ lower extremity edema which is not new for patient Musculoskeletal: Moving all extremities Neuro: No overt focal neurological deficits Skin: No rashes appreciated Psych: Cooperative Assessment & Plan Assessment/Plan (1) Sepsis: QUALIFIERS: Sepsis type: sepsis due to unspecified organism S epsis acute organ dysfunction status: with acute organ dysfunction Severe sepsis acute organ dysfunction type: unspecified Severe sepsis shock status: w ith septic shock Qualified Code(s): A41.9 - Sepsis, unspecified organism; R65.21 - Severe sepsis with septic shock PLAN: Plan # Sepsis secondary to C. difficile colitis present on admission - Patient found to have C. difficile colitis - On p.o. vancomycin and IV metronidazole - White blood cell count is slowly downtrending - Patient has persistent diarrhea however clinical picture is not clear as he is also on the lactulose to promote bowel movements due to his hepatic encephalopathy - Patient was evaluated by GI during this admission and zinplava on discharge from the hospital was recommended if at all possible for 7 days # Epigastric pain - Patient does have Protonix twice daily on home med list, will resume this - Did endorse that symptoms improved some with Maalox earlier - Does not sound cardiac in nature especially given patient is uncomfortable with palpation of epigastric region - Had a bout of nausea but is not presently feeling nauseous - Continue PPI - Will check lipase, repeat basic labs, check lactic acid - Clinically abdomen is soft without rebound, guarding, rigidity or concern for acute abdomen at this time - Does have a little bit of sinus tachycardia, is no longer hypotensive, will decrease midodrine and if patient tolerates this can likely discontinue this tomorrow - Suspect given patient's reports of poor p.o. intake with his diarrhea that he may be somewhat volume depleted # Acute hepatic encephalopathy - Patient has known NAFLD with cirrhosis - Found to have severe hyperammonemia and required NG tube placement - Is receiving lactulose and sensorium improved - Continue rifaximin, also noted to be thrombocytopenic however this appears chronic #Type 2 diabetes mellitus -Glucose checks and sliding scale insulin - Changed glucose checks to ACHS - Increase sliding scale factor - Will also schedule insulin # Hyponatremia ? Sodium 126 today, has down trended over the past several days, this is in part falsely low due to patient's significant hyperglycemia -Do suspect that there is some component of volume depletion given patient's report of poor p.o. intake with multiple bowel movements and he did have a slight increase in BUN and creatinine - Will give IV fluids, if this does not improve may need to pursue further workup # Known staghorn colliculi with hematuria - Patient has stent in place in the left kidney below his staghorn colliculi, CAT scan did not show any hydronephrosis, patient was evaluated by urology for possible nephrostomy tube placement however it was not felt that this was necessary at the time of consultation and it was recommended to treat patient's C. difficile - Patient had urine culture during this admission which was negative #DVT ppx: SCDs Kathie Powers MD Time spent in the patient's overall evaluation, decision-making process, review of diagnostic data, adjustment of management, discussion with other providers, nursing and ancillary staff involved in patient's care documentation, 56 Minutes Charges/Coding Visit Charges Inpatient E&M: 72424 [facility] Hosp L3
[2024-11-08 15:10] VITALS: BP 116/78; PULSE 108; RESP 17; TEMP 36.6; O2SAT 95
[2024-11-08 15:13] LABS: Hematocrit 31.1 % (40-54); Hemoglobin 10.8 g/dL (13.0-16.5); Mean Corp Hgb Conc 34.7 g/dL (32-36); Mean Corpuscular Hgb 32.2 pg (27.0-32.0); Mean Corpuscular Volume 92.8 fL (80-94); Mean Platelet Vol. 12.1 fl (6.2-12.0); POSITIVE COUNT YES; RBC Distribution Width CV 17.9 % (11.6-14.6); RBC Distribution Width SD 60.6 fl (35.1-43.9); Red Blood Count 3.35 M/mm3 (4.6-6.2); White Blood Count 18.8 K/mm3 (4.4-11.0)
[2024-11-08 15:24] LABS: Platelet Count 46 K/mm3 (150-450)
[2024-11-08 16:00] LABS: Scan Indicated on CBC? Y/N YES- FLAGS NOTED
[2024-11-08 16:17] LABS: Anion Gap 10 (5-15); BUN 20 mg/dL (4-19); BUN/Creat Ratio 16.8 RATIO (10-20); Calcium,Total 9.1 mg/dL (7.6-11.0); Carbon Dioxide 14.8 mmol/L (21.0-32.0); Chloride 99 mmol/L (98-108); Creatinine, Serum 1.16 mg/dL (0.70-1.20); EST Glomerular Filtration Rate 73 (>60); Estimated Creatinine Clearance 85.99 ml/min (50-250); Glucose 376 mg/dL (70-99); Lipase 94 U/L (13-75); Magnesium 2.4 mg/dL (1.5-2.2); Phosphorus 1.6 mg/dL (2.7-4.5); Potassium 3.5 mmol/L (3.3-5.1); Sodium Level 124 mmol/L (133-145)
[2024-11-08 16:32] LABS: Lactic Acid 4.1 mmol/L (0.0-2.0)
[2024-11-08 17:48] LABS: Bedside Glucose 317 mg/dL (74-106)
[2024-11-08] MEDS: Pantoprazole Sodium 40 MG in 0.9% Normal Saline (100mL MB+) 100 ML 330 MG IV ×2 (18:13→21:08)
[2024-11-08] MEDS: Midodrine HCl 5 MG Tablet PO (18:13)
[2024-11-08] MEDS: 0.9% Normal Saline (1000mL) 1,000 ML 100 ML IV (18:24)
[2024-11-08 19:08] LABS: Reflex Lactate? Y
[2024-11-08 20:39] LABS: Lactic Acid 3.6 mmol/L (0.0-2.0)
[2024-11-08 21:05] VITALS: BP 120/76; PULSE 100; RESP 16; TEMP 36.6; O2SAT 97
[2024-11-08] MEDS: Insulin Glargine-YFGN 100 UNIT/ML Pen SC (21:31)
[2024-11-08] MEDS: 0.9% Normal Saline (500mL Bag) 500 ML 999 ML IV (21:33)
[2024-11-08 21:54] LABS: Bedside Glucose 327 mg/dL (74-106)
[2024-11-08 23:51] LABS: Lactic Acid 3.1 mmol/L (0.0-2.0)
[2024-11-09] MEDS: Vancomycin 125 MG/5 ML Susp PO.SYRINGE NG ×5 (00:18→23:51)
[2024-11-09 02:31] LABS: Reflex Lactate? Y
[2024-11-09 02:55] VITALS: BP 124/79; PULSE 104; RESP 16; TEMP 36.4; O2SAT 97
[2024-11-09 04:51] VITALS: BMI 36.6
[2024-11-09] MEDS: Nystatin Powder 15gm Bottle 1 APPLIC TOPICAL ×3 (05:32→21:30)
[2024-11-09] MEDS: Menthol/Lanolin/Calamine/Znox 113 GM Tube 1 APPLIC TOPICAL ×3 (05:32→21:30)
[2024-11-09 05:44] LABS: Absolute Neutrophil Count 12.6 X10^3/uL (2.0-7.7); Basophil% 0.6 % (0-1); Eosinophil# 0.48 X10^3/uL; Hematocrit 30.6 % (40-54); Hemoglobin 10.4 g/dL (13.0-16.5); Lymphocyte % 8.2 % (19-41); Mean Corpuscular Hgb 31.9 pg (27.0-32.0); Mean Corpuscular Volume 93.9 fL (80-94); Mean Platelet Vol. 11.7 fl (6.2-12.0); Monocyte# 1.28 X10^3/uL; Monocyte% 8.1 % (0-10); NRBC Flagged by Analyzer 0 % (0-5); Neutrophil # 12.56 X10^3/uL (2.7-7.7); Neutrophil % 79.1 % (47-70); POSITIVE COUNT YES; RBC Distribution Width CV 18.1 % (11.6-14.6); RBC Distribution Width SD 62.9 fl (35.1-43.9); Red Blood Count 3.26 M/mm3 (4.6-6.2); White Blood Count 15.9 K/mm3 (4.4-11.0)
[2024-11-09 05:58] LABS: International Normalized Ratio 2.9; Prothrombin Time (Protime)PT. 31.1 SECONDS (11.7-14.9)
[2024-11-09 06:17] LABS: Differential Indicated SCAN CRITERIA MET; Platelet Count 42 K/mm3 (150-450)
[2024-11-09] MEDS: Insulin Lispro 100 UNIT/ML INSULN.PEN SC ×4 (06:38→21:31)
[2024-11-09 06:45] LABS: Lactic Acid 2.4 mmol/L (0.0-2.0)
[2024-11-09 06:58] LABS: Bedside Glucose 283 mg/dL (74-106)
[2024-11-09 06:59] LABS: Anion Gap 10 (5-15); BUN 19 mg/dL (4-19); BUN/Creat Ratio 16.6 RATIO (10-20); Calcium,Total 8.8 mg/dL (7.6-11.0); Carbon Dioxide 12.2 mmol/L (21.0-32.0); Chloride 102 mmol/L (98-108); Creatinine, Serum 1.13 mg/dL (0.70-1.20); EST Glomerular Filtration Rate 75 (>60); Estimated Creatinine Clearance 88.15 ml/min (50-250); Glucose 284 mg/dL (70-99); Potassium 3.7 mmol/L (3.3-5.1); Sodium Level 125 mmol/L (133-145)
[2024-11-09 07:00] VITALS: PULSE 111
[2024-11-09 07:18] LABS: Differential Comment SCANNED; Platelet Estimate MKD DEC (ADEQ)
[2024-11-09 10:00] VITALS: BP 110/75; PULSE 115; RESP 16; TEMP 36.4; O2SAT 98
[2024-11-09] MEDS: rifAXIMin 550 MG Tablet PO ×2 (10:18→21:31)
[2024-11-09] MEDS: Zinc Sulfate 50 mg zinc (220 mg) ORAL capsule PO (10:18)
[2024-11-09] MEDS: Cholecalciferol (Vit D3) 125 MCG CAPSULE (5,000 UNITS) PO (10:18)
[2024-11-09] MEDS: Lactobacillis Acidophilus 1 CAP PO ×4 (10:18→21:31)
[2024-11-09] MEDS: Lactulose 20 GM/30 ML UDC 15 GM NG (10:19)
[2024-11-09] MEDS: Midodrine HCl 5 MG Tablet PO ×3 (10:19→17:29)
[2024-11-09] MEDS: Lidocaine 5% Patch 3 PATCH TOPICAL (10:19)
[2024-11-09] MEDS: Folic Acid 1 MG Tablet PO (10:19)
[2024-11-09] MEDS: Insulin Glargine-YFGN 100 UNIT/ML Pen SC (10:27)
[2024-11-09] MEDS: Pantoprazole Sodium 40 MG in 0.9% Normal Saline (100mL MB+) 100 ML 330 MG IV ×2 (10:31→21:31)
[2024-11-09] MEDS: metroNIDAZOLE 500 MG/100 ML BAG 100 MG IV ×2 (10:31→21:31)
[2024-11-09 12:30] LABS: Bedside Glucose 392 mg/dL (74-106)
[2024-11-09 14:00] VITALS: BP 109/66; PULSE 117; RESP 18; TEMP 36.8; O2SAT 97
--- NOTE | 2024-11-09 17:15 | RAD_ITS ---
PROCEDURE: ABDOMEN SINGLE VIEW (PORTABLE) 11/09/2024 REASON FOR EXAM: ABD PAIN AND BLOATING TECHNIQUE: Single view abdomen. COMPARISON: Abdominal radiograph 10/30/2024. FINDINGS: Bowel gas: Marked distention of the stomach. Interval NG tube removal. The small and large bowel loops are normal in caliber. Bones: There are degenerative changes of the spine. Other: Stable double-J left ureteral stent in similar positioning. RAD/Abdomen Single View (Portable) IMPRESSION: Marked distention of the stomach with interval NG tube removal. Reading Location: [id number]
[2024-11-09 17:35] LABS: Bedside Glucose 250 mg/dL (74-106)
--- NOTE | 2024-11-09 18:50 | PN.HOSP_ITS ---
Reason for Visit Reason for Visit: Diagnoses Enterocolitis due to Clostridium difficile, not specified as recurrent (10/29/24) Sepsis, unspecified organism (10/29/24) Elevated white blood cell count, unspecified (10/29/24) Obesity, class 1 (10/29/24) Hypo-osmolality and hyponatremia (10/29/24) Acidosis, unspecified (10/29/24) Other chronic pain (10/29/24) Hypotension, unspecified (10/29/24) Dorsalgia, unspecified (10/29/24) Urinary tract infection, site not specified (10/29/24) Unspecified abdominal pain (10/29/24) Diarrhea, unspecified (10/29/24) Severe sepsis with septic shock (10/29/24) Personal history of urinary calculi (10/29/24) Subjective Subjective Patient initially this morning laying there resting comfortably, later in the day did report some abdominal discomfort and distention, no nausea or vomiting, has not yet had bowel movement today per nurse Objective Data Objective Data Vital Signs: Vital Signs Temp Pulse Resp BP Pulse Ox O2 Del Method 98.3 F 117 H 18 109/66 97 Room Air 11/09/24 14:00 11/09/24 14:00 11/09/24 14:00 11/09/24 14:00 11/09/24 14:00 11/09/24 15:00 Oxygen Delivery Method Room Air Weight: 112.6 kg Body Mass Index (BMI) 36.6 Intake & Output: Intake and Output for Last 24 Hours 11/07/24 11/08/24 11/09/24 23:59 23:59 23:59 Intake Total 200 / 200 1520 / 1520 1690 / 1690 Output Total 500 / 500 500 / 800 1150 / 1150 Balance -300 / -300 1020 / 720 540 / 540 Lab / Micro Data 11/09/24 05:29 11/09/24 05:29 Labs: Laboratory Results - last 24 hr 11/08/24 19:30: Lactic Acid 3.6 H* 11/08/24 21:27: POC Glucose 327 H 11/08/24 22:30: Lactic Acid 3.1 H* 11/09/24 05:29: WBC 15.9 H, RBC 3.26 L, Hgb 10.4 L, Hct 30.6 L, MCV 93.9, MCH 31.9, MCHC 34.0, RDW Std Deviation 62.9 H, RDW Coeff of Francis 18.1 H, Plt Count 42 L*, MPV 11.7, Immature Gran % (Auto) 1.000 H, Neut % (Auto) 79.1 H, Lymph % (Auto) 8.2 L, Barnwell % (Auto) 8.1, Eos % (Auto) 3.0, Baso % (Auto) 0.6, Absolute Neuts (auto) 12.6 H, Absolute Lymphs (auto) 1.30, Nucleated RBC % 0, Differential Comment SCANNED, Diff Path Review N/A, Platelet Estimate MKD JUL, P T 31.1 H, INR 2.9, Sodium 125 L, Potassium 3.7, Chloride 102, Carbon Dioxide 12.2 L, Anion Gap 10, BUN 19, Creatinine 1.13, Estim Creat Clear Calc 88.15, Est GFR (MDRD) Non-Af 75, BUN/Creatinine Ratio 16.6, Glucose 284 H, Lactic Acid 2.4 H*, Calcium 8.8, Ammonia 104.0 H 11/09/24 06:37: POC Glucose 283 H 11/09/24 11:52: POC Glucose 392 H 11/09/24 16:35: POC Glucose 250 H Micro: Microbiology 10/29/24 01:00 Blood Culture (Wb) - Anticubital Left Blood Culture - Final No growth in 5 days. 10/29/24 00:32 Blood Culture (Wb) - Right Wrist Blood Culture - Final No growth in 5 days. 10/30/24 12:31 Stool Ova and Parasites - Final 10/29/24 02:01 Urine, Clean Catch Urine Culture - Final Culture exhibits no growth. 10/30/24 06:46 Stool Stool Lactoferrin - Final 10/30/24 06:46 Stool Enteric Bacteriology - Final 10/30/24 06:46 Stool C. difficile GDH Antigen & Toxins - Final Toxigenic C. difficile 10/30/24 06:46 Stool Clostridioides difficile (PCR) - Final Radiography Diagnostic Testing: Radiology Impression KUB X-Ray 11/09/24 17:15 IMPRESSION: Marked distention of the stomach with interval NG tube removal. Reading Location: [facility] Rhythm Strip Rhythm Strip: Sinus Rhythm Rate: 83 Ectopy: None Physical Exam Narrative General: Alert, oriented, no apparent distress HEENT: Atraumatic, normocephalic Eyes: Anicteric, normal conjunctiva, extraocular movements grossly intact Neck: Supple Respiratory: Clear to auscultation bilaterally, normal respiratory effort Cardiovascular: Regular rate and rhythm GI: Not tense, no significant tenderness on initial exam without rebound, guarding, rigidity Extremities: No edema Musculoskeletal: Moving all extremities Neuro: No overt focal neurological deficits Skin: No rashes appreciated, does appear to very tanned skin Psych: Cooperative Assessment & Plan Assessment/Plan (1) Sepsis: QUALIFIERS: Sepsis type: sepsis due to unspecified organism S epsis acute organ dysfunction status: with acute organ dysfunction Severe sepsis acute organ dysfunction type: unspecified Severe sepsis shock status: w ith septic shock Qualified Code(s): A41.9 - Sepsis, unspecified organism; R65.21 - Severe sepsis with septic shock PLAN: Plan # Sepsis secondary to C. difficile colitis present on admission - Patient found to have C. difficile colitis - On p.o. vancomycin and IV metronidazole - White blood cell count is slowly downtrending - Patient has persistent diarrhea however clinical picture is not clear as he is also on the lactulose to promote bowel movements due to his hepatic encephalopathy - Patient was evaluated by GI during this admission and zinplava on discharge from the hospital was recommended if at all possible for 7 days -11/09: Patient on vancomycin and metronidazole, has not had bowel movement yet today # Epigastric pain - Patient does have Protonix twice daily on home med list, will resume this - Did endorse that symptoms improved some with Maalox earlier - Does not sound cardiac in nature especially given patient is uncomfortable with palpation of epigastric region - Had a bout of nausea but is not presently feeling nauseous - Continue PPI - Will check lipase, repeat basic labs, check lactic acid - Clinically abdomen is soft without rebound, guarding, rigidity or concern for acute abdomen at this time - Does have a little bit of sinus tachycardia, is no longer hypotensive, will decrease midodrine and if patient tolerates this can likely discontinue this tomorrow - Suspect given patient's reports of poor p.o. intake with his diarrhea that he may be somewhat volume depleted -11/09: Patient pain seemed to improve with Maalox and PPI however did have return of this pain so KUB obtained which showed distended stomach, CT ordered for better characterization to assist with management. Additionally patient reports he gets routine paracenteses and missed his last one as he is here and feels that he needs paracentesis so this was ordered # Acute hepatic encephalopathy - Patient has known NAFLD with cirrhosis - Found to have severe hyperammonemia and required NG tube placement - Is receiving lactulose and sensorium improved - Continue rifaximin, also noted to be thrombocytopenic however this appears chronic -11/09: Increased patient's lactulose as he did not have a bowel movement today, has elevated ammonia which is chronic but mental status is similar to yesterday without decreased level of consciousness #Type 2 diabetes mellitus -Glucose checks and sliding scale insulin - Changed glucose checks to ACHS - Increase sliding scale factor - Will also schedule insulin -11/09: Remains hyperglycemic, will increase insulin # Hyponatremia ? Sodium 126 today, has down trended over the past several days, this is in part falsely low due to patient's significant hyperglycemia -Do suspect that there is some component of volume depletion given patient's report of poor p.o. intake with multiple bowel movements and he did have a slight increase in BUN and creatinine - Will give IV fluids, if this does not improve may need to pursue further workup -11/09: Sodium similar today, received IV fluids, repeat in the a.m., has not further dropped, again somewhat falsely low due to elevated glucose # Known staghorn colliculi with hematuria - Patient has stent in place in the left kidney below his staghorn colliculi, CAT scan did not show any hydronephrosis, patient was evaluated by urology for possible nephrostomy tube placement however it was not felt that this was necessary at the time of consultation and it was recommended to treat patient's C. difficile - Patient had urine culture during this admission which was negative -11/09: Continue to monitor urine color and output #DVT ppx: SCDs Kathie Powers MD Time spent in the patient's overall evaluation, decision-making process, review of diagnostic data, adjustment of management, discussion with other providers, nursing and ancillary staff involved in patient's care documentation, 42 Minutes Charges/Coding Visit Charges Inpatient E&M: 70002 Subs Hosp L2
[2024-11-09] MEDS: oxyCODONE 5 MG Tablet PO (19:03)
--- NOTE | 2024-11-09 19:37 | CT_ITS ---
PROCEDURE: ABDOMEN/PELVIS W IV CONT ONLY 11/09/2024 REASON FOR EXAM: ABD PAIN, SEVERE ABD DISTENTION ON KUB TECHNIQUE: Abdomen and pelvis CT with intravenous contrast. Coronal and Sagittal reconstruction series were provided. PATIENT PREPARATION: Per protocol ORAL CONTRAST TYPE: None. AMOUNT: mL CONTRAST: Omnipaque 350 VOLUME: 100 mL Not Provided Gauge IV One or more dose reduction techniques were used (e.g., Automated exposure control, adjustment of the mA and/or kV according to patient size, use of iterative reconstruction technique. COMPARISON: CT abdomen and pelvis 10/28/2024 FINDINGS: Lung bases: Trace left pleural effusion. Trace pericardial effusion. Bilateral gynecomastia. Liver: Cirrhotic liver morphology. No focal lesion. Gallbladder: No ductal dilation. Cholelithiasis. Spleen: Mild splenomegaly, craniocaudal length 13.8 cm. No focal lesion. Pancreas: Normal size without evidence of mass surrounding inflammation or ductal dilation. Adrenals: Unremarkable Kidneys: No suspicious mass no abnormal enhancement. Left nephroureteral stent. No calculi or hydronephrosis. Bladder: Decompressed urinary bladder with circumferential wall thickening. Reproductive Organs: No pelvic mass Bowel: Fluid-filled moderately distended stomach. No bowel dilation. Mild diffuse wall thickening, likely secondary to abdominal ascites. Large amount of colonic stool. Appendix: The appendix is not identified. There is no inflammatory process identified in the right lower quadrant to suggest appendicitis. Lymph nodes: No suspicious lymph node enlargement. Vasculature: The abdominal aorta and IVC are normal. Moderate diffuse atherosclerotic calcifications. Compared with the CT from 10/29/2019, there has been interval progression thrombosis within the portal splenic confluence, with complete occlusion of the splenic vein (series 2 images [id number]). Thrombus extends through the roof of the superior mesenteric vein. Several portosystemic collateral vessels are noted. For example paraesophageal and splenorenal shunts. Peritoneum / Retroperitoneum: Large abdominopelvic ascites. Bones: Multilevel degenerative changes of the lumbar spine. Multilevel compression deformities in the lower thoracic spine, most prominent at T12. Soft tissue: Diffuse subcutaneous edema. Fat and fluid containing umbilical hernia. CT/Abdomen/Pelvis W IV Cont ONLY IMPRESSION: 1. Cirrhotic liver morphology without focal lesion. 2. 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 3. Moderate ascites, splenomegaly and extensive abdominal portosystemic collate rals, compatible with sequela of portal hypertension. Reading Location: [facility]
--- NOTE | 2024-11-09 21:21 | PCM.HOSP.N ---
Hospitalist Note CT scan w/ ascites and fluid filled mod distended stomach as well as large amount of colonic stool, will place order for lactulose enema, start reglan IV, and order gastric emptying study. Paracentesis already ordered which will likely also provide relief. Additionally demonstrated progression of a splenic thrombosis w/ collaterals, pt w/ hematuria given his stag horn caliculi and is thrombocytopenic, will c/s hematology given thrombosis but low plts and bleeding, additionally reconsult urology given ongoing hematuria in setting of his coliculi and will c/s GI.
[2024-11-09 21:27] VITALS: BP 119/74; PULSE 113; RESP 18; TEMP 36.8; O2SAT 98
[2024-11-09] MEDS: Lactulose 20 GM/30 ML UDC PO (21:30)
[2024-11-09] MEDS: Insulin Glargine-YFGN 100 UNIT/ML Pen 10 UNIT SC (21:31)
[2024-11-09 21:58] LABS: Bedside Glucose 287 mg/dL (74-106)
[2024-11-09] MEDS: Metoclopramide 10 MG/2 ML Vial 5 MG IV (23:48)
[2024-11-09] MEDS: 0.9% Saline Lock 10 ML Syringe IV (23:48)
[2024-11-09] MEDS: Ondansetron 4 MG/2 ML Vial IV (23:48)
[2024-11-10] VITALS (7 sets, daily range): BP systolic 103–116; BP diastolic 70–76; PULSE 104–126; RESP 14–20; TEMP 36.4–37; O2SAT 96–100; BMI 36.7
[2024-11-10] MEDS: oxyCODONE 5 MG Tablet PO ×2 (02:07→09:17)
[2024-11-10 05:55] LABS: Absolute Neutrophil Count 16.2 X10^3/uL (2.0-7.7); Basophil# 0.09 X10^3/uL; Basophil% 0.5 % (0-1); Eosinophil# 0.38 X10^3/uL; Eosinophils% 1.9 % (0-5); Hematocrit 32.9 % (40-54); Hemoglobin 11.3 g/dL (13.0-16.5); Lymphocyte % 6.6 % (19-41); Mean Corp Hgb Conc 34.3 g/dL (32-36); Mean Corpuscular Hgb 31.8 pg (27.0-32.0); Mean Corpuscular Volume 92.7 fL (80-94); Mean Platelet Vol. 12.2 fl (6.2-12.0); Monocyte# 1.36 X10^3/uL; Monocyte% 6.9 % (0-10); NRBC Flagged by Analyzer 0 % (0-5); Neutrophil # 16.24 X10^3/uL (2.7-7.7); POSITIVE COUNT YES; Platelet Count 58 K/mm3 (150-450); RBC Distribution Width CV 18.1 % (11.6-14.6); RBC Distribution Width SD 62.1 fl (35.1-43.9); Red Blood Count 3.55 M/mm3 (4.6-6.2); White Blood Count 19.6 K/mm3 (4.4-11.0)
[2024-11-10] MEDS: Menthol/Lanolin/Calamine/Znox 113 GM Tube 1 APPLIC TOPICAL ×3 (06:40→21:23)
[2024-11-10] MEDS: Metoclopramide 10 MG/2 ML Vial 5 MG IV ×4 (06:40→23:26)
[2024-11-10] MEDS: Lactulose 20 GM/30 ML UDC PO ×3 (06:40→21:23)
[2024-11-10] MEDS: Vancomycin 125 MG/5 ML Susp PO.SYRINGE NG ×4 (06:40→23:26)
[2024-11-10] MEDS: Insulin Lispro 100 UNIT/ML INSULN.PEN SC ×4 (06:40→21:24)
[2024-11-10] MEDS: Nystatin Powder 15gm Bottle 1 APPLIC TOPICAL ×3 (06:40→21:23)
[2024-11-10 06:47] LABS: ALB/GLOB Ratio 0.7 RATIO (0.9-2.4); AST(SGOT) 58 U/L (<=37); Alanine Aminotransfer ALT/SGPT 36 U/L (<=46); Albumin, Serum 2.3 g/dL (3.5-5.0); Alkaline Phosphatase 310 U/L (40-129); Anion Gap 11 (5-15); BUN 19 mg/dL (4-19); BUN/Creat Ratio 16.6 RATIO (10-20); Calcium,Total 9.2 mg/dL (7.6-11.0); Carbon Dioxide 13.3 mmol/L (21.0-32.0); Chloride 99 mmol/L (98-108); Creatinine, Serum 1.13 mg/dL (0.70-1.20); EST Glomerular Filtration Rate 75 (>60); Estimated Creatinine Clearance 88.23 ml/min (50-250); Globulin 3.4 g/dL (2.2-4.2); Glucose 298 mg/dL (70-99); Potassium 3.6 mmol/L (3.3-5.1); Protein, Total 5.7 g/dL (5.9-8.4); Sodium Level 123 mmol/L (133-145); Total Bilirubin 2.09 mg/dL (0.00-1.30)
[2024-11-10 07:00] LABS: Bedside Glucose 264 mg/dL (74-106)
--- NOTE | 2024-11-10 08:57 | PCM.CONS.B ---
Consult Date of Consult: 11/10/24 59-year-old male with a known staghorn calculus of the left kidney he had a stent placed emergently to decompress the kidney the stent is in good position he recently had a CT scan that demonstrated stone is still there stents in good position there is no hydronephrosis his creatinine is near normal. He does have significant abdominal ascites and not sure what is causing that his white count still elevated his platelets are low the patient is currently still not in optimal position to undergo any elective surgery for his kidney stone. He is out of network we did ask the insurance company authorize and payment for our network surgery for his kidney stone which is still pending. The insurance, he tells me they have to reach out the 3 other providers in his network to see if they would accept the patient. I do see if I can get authorization to do the surgery at some point once he gets stabilized I think would be very difficult for the patient to transport to another location but at this point he is not really medically stable for me to do any surgery on his kidney and his kidney stone so we will continue to monitor we will see if I get authorization and then once he is better we will plan to proceed with shockwave lithotripsy or percutaneous procedure. At a later date
[2024-11-10] MEDS: Folic Acid 1 MG Tablet PO (09:17)
[2024-11-10] MEDS: Lidocaine 5% Patch 3 PATCH TOPICAL (09:17)
[2024-11-10] MEDS: rifAXIMin 550 MG Tablet PO ×2 (09:17→21:23)
[2024-11-10] MEDS: Cholecalciferol (Vit D3) 125 MCG CAPSULE (5,000 UNITS) PO (09:17)
[2024-11-10] MEDS: Zinc Sulfate 50 mg zinc (220 mg) ORAL capsule PO (09:17)
[2024-11-10] MEDS: Midodrine HCl 5 MG Tablet PO ×3 (09:17→16:49)
[2024-11-10] MEDS: Lactobacillis Acidophilus 1 CAP PO ×4 (09:17→21:23)
[2024-11-10] MEDS: Pantoprazole Sodium 40 MG in 0.9% Normal Saline (100mL MB+) 100 ML 330 MG IV ×2 (09:18→21:24)
[2024-11-10] MEDS: metroNIDAZOLE 500 MG/100 ML BAG 100 MG IV ×2 (09:18→21:24)
[2024-11-10] MEDS: 0.9% Saline Lock 10 ML Syringe IV ×3 (09:19→23:26)
[2024-11-10] MEDS: Insulin Glargine-YFGN 100 UNIT/ML Pen 12 UNIT SC ×2 (09:27→21:24)
[2024-11-10 10:22] LABS: International Normalized Ratio 3.1; Prothrombin Time (Protime)PT. 32.3 SECONDS (11.7-14.9)
[2024-11-10 13:00] LABS: Bedside Glucose 255 mg/dL (74-106)
--- NOTE | 2024-11-10 13:02 | CASEMGMT ---
Insurance review for hospitals In-network with [facility] insurance if transfer is recommended [facility], [facility], [facility], [facility]. India Platt, Discharge Planning Asst.
[2024-11-10 13:28] LABS: Mucous, Urine 0 SEEN /hpf (<or=2+); Squamous Epithelial Cells - UA 0 SEEN /hpf (0-5)
[2024-11-10 13:38] LABS: Color, Urine Brown (Yellow); Glucose, Dipstick Normal (Normal); Ketone-Dipstick 5 mg/dl (Negative); Leukocyte Esterase-Dipstick 500 /ul (Negative); Nitrite-Dipstick Positive (Negative); Occult Blood-Urine 250 /ul (Negative); Protein-Dipstick 500 mg/dl (Negative); Specific Gravity, Urine 1.015 (1.002-1.030); Urine Bilirubin Dipstick Negative (Negative); Urine Clarity Turbid (Clear); Urine Urobilinogen 1 mg/dl (Normal); Urine pH 6.5 (5.0 - 8.0)
[2024-11-10 13:56] LABS: Red Blood Cells-Urine > 100 SEEN /hpf (0-5)
[2024-11-10 14:02] LABS: White Blood Cells 5-10 SEEN /hpf (0-5)
[2024-11-10 14:03] LABS: Bacteria 2+ /hpf (None Seen)
[2024-11-10 17:12] LABS: Bedside Glucose 271 mg/dL (74-106)
--- NOTE | 2024-11-10 19:37 | PCM.DC.SUM ---
Providers Date of Admission: 10/29/24 Date of Discharge: 11/10/24 Primary Care Physician: Dayana Primary [facility] Phys Consultations 10/29/24 01:15 Consult: Urology Routine Consulting Provider: Foster Rascon Reason for Consult: Sepsis with UTI and Staghorn Calculus. EMERGENT Consult: No MD Notified: Yes Date Notified: 10/29/24 Time Notified: 08:07 Method of Notification: Verbal 10/29/24 01:47 Consult: Coin Machine Operator / Pulmonary Medicine Routine Consulting Provider: Intensivists/Pulmonary Med Reason for Consult: Sepsis, UTI, Diarrhea, Abdominal Pain and Back Pain. EMERGENT Consult: No MD Notified: Yes Date Notified: 10/29/24 Time Notified: 04:58 Method of Notification: Text 10/30/24 03:54 Consult: Gastroenterology Routine Consulting Provider: [facility] Reason for Consult: HARRIS, elevated ammonia EMERGENT Consult: No MD Notified: Yes Date Notified: 10/30/24 Time Notified: 07:31 Method of Notification: Text 11/09/24 21:26 Consult: Gastroenterology Routine Consulting Provider: [facility] Reason for Consult: cirrhosis,ascites,splenic thrombosis, low plts, possible dec in heidy motili EMERGENT Consult: No MD Notified: Yes Date Notified: 11/10/24 Time Notified: 05:35 Method of Notification: Text Consult: Oncology/Hematology Routine Consulting Provider: [facility] Reason for Consult: splenic thrombosis in cojunction w/ thrombocytopenia and active hematuria EMERGENT Consult: No Notified: Yes Date Notified: 11/10/24 Time Notified: 06:36 Method of Notification: Text Consult: Urology Routine Consulting Provider: Foster Rascon Reason for Consult: reconsult, staghorn coliculi, low plts, thrombosis, ongoing hematuria EMERGENT Consult: No MD Notified: Yes Date Notified: 11/10/24 Time Notified: 06:39 Method of Notification: phone Reason For Visit: SEPSIS, UTI, DIARRHEA & ABDOMINAL PAIN Diagnosis Discharge Diagnosis (1) Sepsis: Status: Acute Code(s): A41.9 - Sepsis, unspecified organism Qualifiers: Sepsis acute organ dysfunction status: with acute organ dysfunction Sepsis type: sepsis due to unspecified organism Severe sepsis acute organ dysfunction type: unspecified Severe sepsis shock status: with septic shock Qualified Code(s): A41.9 - Sepsis, unspecified organism; R65.21 - Severe sepsis with septic shock Plan # 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 difficile colitis present on admission # Cirrhosis secondary to NAFLD #Type 2 diabetes mellitus # Hyponatremia # Known staghorn colliculi with hematuria Medications at Discharge Home Medications lidocaine 5 % topical patch 3 patch topical DAILY #90 ea 09/02/24 pantoprazole 40 mg tablet,delayed release 40 mg PO BID #60 tabs 09/02/24 rifaximin 550 mg tablet (Xifaxan) 550 mg PO BID #60 tabs 09/02/24 cyclobenzaprine 5 mg tablet 5 mg PO TID PRN muscle spasm #0 tabs 09/14/24 insulin lispro 100 unit/mL subcutaneous pen (Humalog KwikPen (U-100) Insulin) See Protocol subcut ACHS #0 mL 09/14/24 acetaminophen 500 mg tablet 1,000 mg PO Q8 PRN fever or pain 10/28/24 calcium 500 mg (as carbonate)-vitamin D3 5 mcg (200 unit) tablet (Oyster Shell Calcium-Vitamin D3) 1 tab PO DAILY 10/28/24 folic acid 1 mg tablet 1 mg PO DAILY 10/28/24 furosemide 40 mg tablet 40 mg PO DAILY 10/28/24 ibuprofen 800 mg tablet 800 mg PO TID PRN PRN fever or pain 10/28/24 Hospital Course Summary of Care Provided Minutes Spent on Discharge: 65 Hospital Course: # 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 difficile colitis present on admission # Cirrhosis secondary to NAFLD #Type 2 diabetes mellitus # Hyponatremia # Known staghorn colliculi with hematuria Patient is a 59-year-old male with a history of diabetes, staghorn colliculi, cirrhosis who presented to [facility] ED 10/29/2024 with sepsis and was found to have C. difficile. He was put on IV Flagyl and oral vancomycin and did steadily improve however hospital course was complicated by patient having decreased level of consciousness and subsequently found to have an elevated ammonia requiring lactulose administration with improvement in mental status. Patient complained of abdominal pain 11/09/2024 that was somewhat nonspecific, given history a CT of his abdomen was obtained which showed interval progression extensive thrombosis within the portal splenic confluence with now complete occlusion of the extrahepatic and intrahepatic portal veins with moderate ascites, splenomegaly, and extensive abdominal portosystemic collaterals. Urology reconsulted, hematology and oncology consulted. Urology did not feel patient was currently appropriate for intervention at this time, given his continued hematuria suspected secondary to the staghorn colliculi he is unable to be anticoagulated safely at our institution. Discussed with hematology regarding patient's clot as well as his platelets, INR, hematuria and given the active hematuria without present ability to stop this it was recommended to reach out to vascular regarding possible thrombectomy. Discussed with vascular surgery who reports that this is not a procedure that would be able to be done at our institution and it would more likely be done by somebody with the ability to do a TIPS procedure or IR and recommended transfer to a tertiary facility which heme-onc was in agreement. Reach out to [facility] and ultimately patient was accepted by the job placement specialist Dr. Neal. Patient with bed assignment 11/10, patient to be transferred to [facility] Physical Exam Narrative General: Sleeping but will wake up and be alert and answer questions appropriately, no apparent distress HEENT: Atraumatic, normocephalic Eyes: Anicteric, normal conjunctiva, extraocular movements grossly intact Neck: Supple Respiratory: Clear to auscultation bilaterally, normal respiratory effort Cardiovascular: Low-grade sinus tachycardia GI: Not tense but is full, no rebound, guarding, rigidity but does have some generalized tenderness Extremities: No edema Musculoskeletal: Moving all extremities Neuro: No overt focal neurological deficits Skin: No rashes appreciated, does appear to very tanned skin Psych: Cooperative Weight / BMI Weight Weight: 112.8 kg Body Mass Index (BMI) 36.7 ABG / Lab / Microbiology Data 11/10/24 05:27 11/10/24 05:27 Laboratory: Laboratory Results - last 24 hr 11/09/24 21:29: POC Glucose 287 H 11/10/24 05:27: WBC 19.6 H, RBC 3.55 L, Hgb 11.3 L, Hct 32.9 L, MCV 92.7, MCH 31.8, MCHC 34.3, RDW Std Deviation 62.1 H, RDW Coeff of Francis 18.1 H, Plt Count 58 L, MPV 12.2 H, Immature Gran % (Auto) 1.100 H, Neut % (Auto) 83.0 H, Lymph % (Auto) 6.6 L, Glenn % (Auto) 6.9, Eos % (Auto) 1.9, Baso % (Auto) 0.5, Absolute Neuts (auto) 16.2 H, Absolute Lymphs (auto) 1.30, Nucleated RBC % 0, Sodium 123 L, Potassium 3.6, Chloride 99, Carbon Dioxide 13.3 L, Anion Gap 11, BUN 19, Creatinine 1.13, Estim Creat Clear Calc 88.23, Est GFR (MDRD) Non-Af 75, BUN/Creatinine Ratio 16.6, Glucose 298 H, Calcium 9.2, Total Bilirubin 2.09 H, AST 58 H, ALT 36, Alkaline Phosphatase 310 H, Total Protein 5.7 L, Albumin 2.3 L, Globulin 3.4, Albumin/Globulin Ratio 0.7 L 11/10/24 06:39: POC Glucose 264 H 11/10/24 09:36: PT 32.3 H, INR 3.1 11/10/24 12:26: POC Glucose 255 H 11/10/24 13:12: Urine Color Brown, Urine Clarity Turbid, Urine pH 6.5, Ur Specific Ralph 1.015, Urine Protein 500 H, Urine Glucose (UA) Normal, Urine Ketones 5 H, Urine Occult Blood 250 H, Urine Nitrite Positive H, Urine Bilirubin Negative, Urine Urobilinogen 1 H, Ur Leukocyte Esterase 500 H, Urine RBC > 100 SEEN, Urine WBC 5-10 SEEN, Ur Squamous Epith Cells 0 SEEN, Urine Bacteria 2+, Urine Mucus 0 SEEN 11/10/24 16:41: POC Glucose 271 H Microbiology: Microbiology 10/29/24 01:00 Blood Culture (Wb) - Anticubital Left Blood Culture - Final No growth in 5 days. 10/29/24 00:32 Blood Culture (Wb) - Right Wrist Blood Culture - Final No growth in 5 days. 10/30/24 12:31 Stool Ova and Parasites - Final 10/29/24 02:01 Urine, Clean Catch Urine Culture - Final Culture exhibits no growth. 10/30/24 06:46 Stool Stool Lactoferrin - Final 10/30/24 06:46 Stool Enteric Bacteriology - Final 10/30/24 06:46 Stool C. difficile GDH Antigen & Toxins - Final Toxigenic C. difficile 10/30/24 06:46 Stool Clostridioides difficile (PCR) - Final Radiography Diagnostic Testing: Radiology Impression Abdomen/Pelvis CT 11/09/24 19:37 IMPRESSION: 1. Cirrhotic liver morphology without focal lesion. 2. Interval progression extensive thrombosis within the portal splenic confluence with now complete occlusion of the extrahepatic and intrahepatic portal veins. 3. Moderate ascites, splenomegaly and extensive abdominal portosystemic collaterals, compatible with sequela of portal hypertension. Reading Location: [facility] D/C Instructions DC O2, CPAP, BIPAP Needs Home O2 Discharge instructions: No Meaningful Use Info Meaningful Use Meaningful Use Diagnoses (Choose all that apply): None applicable Ischemic Stroke Statin Dosing Therapy Reference: STATIN DOSE THERAPY REFERENCE: * Patients > 75 years receive moderate or high dose statin therapy. * Patients 75 years or YOUNGER should receive HIGH intensity statin dose unless contraindicated. You will be required to document reason for non-treatment if statin daily dose does not meet guidelines. HIGH DOSE STATIN THERAPY DAILY Atorvastatin > than or = to 40 mg Rosuvastatin > than or = to 20 mg Amlodipine + Atorvastatin > than or = to 2.5/40 mg Ezetimibe + Simvastatin 10/80 mg Simvastatin 80mg Discharge Plan Admission Admit Date/Time: 10/29/24 00:43 Attending Provider: Kathie Powers Primary Care Provider: Care Physician,No Primary Consulting Providers: Hill Caro; Foster Rascon; Buster Fuchs; Hill Acuña; Hill Herrmann; Blair Cage; Thiago Wray; Gabbi Hughes; Thai Godfrey; Juan Daniel Garza; Zachariah Glover; Scott Weston; Yue Delgadillo WATERPROOFING MACHINE OPERATOR Discharge Orders/Prescriptions Prescriptions: No Action lidocaine 5 % Adhesive Patch,Medicated 3 patch topical DAILY Qty: 90 0RF Protocol: *Topical Application Instructions APPLICATION INSTRUCTIONS: to affected region Rx Instructions: Apply to low back daily for pain pantoprazole 40 mg Tablet,Delayed Release (Dr/Ec) 40 mg PO BID Qty: 60 0RF Xifaxan 550 mg Tablet 550 mg PO BID Qty: 60 0RF insulin lispro [Humalog KwikPen Insulin] 100 unit/mL Insulin Pen See Protocol subcut ACHS Qty: 0 0RF Protocol: 4. Sliding Scale Insulin High-Med Dosing Condition: 150-199 mg/dl = 2 units Condition: 200-259 mg/dl = 4 units Condition: 260-324 mg/dl = 6 units Condition: 325-374 mg/dl = 8 units Condition: 375-409 mg/dl = 10 units Condition: 410-449 mg/dl = 11 units Condition: Greater than 449 call physician Protocol Text: Suggested for: - Patients on Total Daily Insulin Dose of 56-80 units - Patient who are known to be insulin resistant or septic HIGH MEDIUM DOSING ALGORITHM cyclobenzaprine 5 mg Tablet 5 mg PO TID PRN (Reason: muscle spasm) Qty: 0 0RF furosemide 40 mg tablet 40 mg PO DAILY ibuprofen 800 mg tablet 800 mg PO TID PRN PRN (Reason: fever or pain) folic acid 1 mg tablet 1 mg PO DAILY calcium carbonate-vitamin D3 [Oyster Shell Calcium-Vit D3] 500 mg-5 mcg (200 unit) tablet 1 tab PO DAILY acetaminophen 500 mg Tablet 1,000 mg PO Q8 PRN (Reason: fever or pain) Referrals / Follow Up: Amrita Gibbs [Provider Group] - In 1 Week Care Physician,No Primary [Primary Care Provider] - Disposition Disposition (needs filled in before D/C Order can be placed): Acute Care Hospital Charges/Coding Visit Charges Inpatient E&M: 77445 Disch Hosp >30min
[2024-11-10 22:05] LABS: Bedside Glucose 265 mg/dL (74-106)
--- NOTE | 2024-11-11 01:38 | NURSING ---
Report called to [facility] [id number]. Repost given to Betty TAVAREZ.
[2024-11-23 13:19] LABS: Pathologist Review Reviewed
== END 2024-11-11 00:50 | disposition short-term general hospital (02) | DRG 720 ==
LOC: ED 10-29 00:09 → ICU 10-29 01:13 → PCU 10-31 17:23
PROVIDERS: Family Medicine; Internal Medicine; Internal Medicine Critical Care Medicine; Internal Medicine Gastroenterology; Admitting Provider Internal Medicine; Emergency Provider Emergency Medicine; Visit Provider Internal Medicine
DX: A41.4 Sepsis due to anaerobes (principal); I82.0 Budd-Chiari syndrome; K72.90 Hepatic failure, unspecified without coma; G93.41 Metabolic encephalopathy; A04.72 Enterocolitis due to Clostridium difficile, not specified as recurrent; R18.8 Other ascites; D63.8 Anemia in other chronic diseases classified elsewhere; E83.39 Other disorders of phosphorus metabolism; D73.5 Infarction of spleen; I47.20 Ventricular tachycardia, unspecified; K76.6 Portal hypertension; E11.22 Type 2 diabetes mellitus with diabetic chronic kidney disease; D69.59 Other secondary thrombocytopenia; I12.9 Hypertensive chronic kidney disease with stage 1 through stage 4 chronic kidney disease, or unspecified chronic kidney disease; Z68.30 Body mass index [BMI] 30.0-30.9, adult; N18.2 Chronic kidney disease, stage 2 (mild); K74.60 Unspecified cirrhosis of liver; E27.40 Unspecified adrenocortical insufficiency; I95.89 Other hypotension; E78.5 Hyperlipidemia, unspecified; Z79.4 Long term (current) use of insulin; K21.9 Gastro-esophageal reflux disease without esophagitis; E87.6 Hypokalemia; G47.33 Obstructive sleep apnea (adult) (pediatric); E11.65 Type 2 diabetes mellitus with hyperglycemia; K75.81 Nonalcoholic steatohepatitis (NASH); K76.82 Hepatic encephalopathy; N20.0 Calculus of kidney; G89.29 Other chronic pain; N30.01 Acute cystitis with hematuria; Z68.32 Body mass index [BMI] 32.0-32.9, adult; E66.811 Obesity, class 1; Z87.891 Personal history of nicotine dependence
CPT/HCPCS: 36415; 36569; 36600; 74018; 74177; 76770; 80048; 80053; 80061; 80202; 81001; 82140; 82533; 82803; 82962; 83036; 83605; 83630; 83690; 83735; 83930; 83935; 84100; 85025; 85027; 85610; 85730; 87040; 87086; 87177; 87209; 87493; 87506; 93005; 97110; 97116; 97162; 97166; 97530; 97535; 97803; 99285; 99406; P9047; Q9967; A4216; J2405

== ENCOUNTER 2024-11-21 01:32 | Inpatient (IN) | payer MEDICAID, SELFPAY ==
[2024-11-21] VITALS (12 sets, daily range): BP systolic 79–156; BP diastolic 49–70; PULSE 63–87; RESP 14–20; TEMP 36.5–37.1; O2SAT 95–100; BMI 34.3; BMI 33.4
--- NOTE | 2024-11-21 01:55 | EX.ED.DYSGE1 ---
HPI History of Present Illness Chief Complaint: Abd Pain Informant: patient and EMS Narrative Narrative: 59-year-old male states he is extremely weak all over, his abdomen hurts especially in the left flank, and has been having diarrhea for the last couple days which caused him to discontinue his lactulose. He was recently admitted to the hospital for cirrhosis and other issues, he states he has a large kidney stone, and he basically states that no one will do anything about the kidney stone or his liver, and he is not sure why no one will fix him. He chronically has hematuria off-and-on, he states has been worse in the last 2 or 3 weeks. He is a very poor historian. He denies feeling confused. He denies any cough, shortness of breath, chest pain, nausea or vomiting, melena, or blood in stool. He states he has no new symptoms, just feels worse and he was so weak that he could not get up off the toilet after multiple attempts over couple hours. [facility] Medical History Diarrhea Sepsis Acidosis, lactic Acute hypotension Acute UTI Chronic hypotension Obesity (BMI 30-39.9) Chronic back pain ISABEL (acute kidney injury) Hypotension Hepatic encephalopathy Hyperbilirubinemia Liver cirrhosis secondary to HARRIS (nonalcoholic steatohepatitis) HLD (hyperlipidemia) HTN (hypertension) Thrombocytopenia Chronic anemia Former tobacco use Diabetes mellitus, type 2 ABBY on CPAP Back pain Home Medications ?Medication ?Instructions ?Recorded ?Last Taken ?Type lidocaine 5 % topical patch 3 patch topical DAILY #90 ea 09/02/24 Unknown Rx rifaximin 550 mg tablet (Xifaxan) 550 mg PO BID #60 tabs 09/02/24 Unknown Rx insulin lispro 100 unit/mL See Protocol subcut ACHS #0 mL 09/14/24 Unknown Rx subcutaneous pen (Humalog KwikPen (U-100) Insulin) acetaminophen 500 mg tablet 1,000 mg PO Q8 PRN fever or pain 10/28/24 Unknown History calcium 500 mg (as 1 tab PO DAILY 10/28/24 Unknown History carbonate)-vitamin D3 5 mcg (200 unit) tablet (Oyster Shell Calcium-Vitamin D3) folic acid 1 mg tablet 1 mg PO DAILY 10/28/24 Unknown History ibuprofen 800 mg tablet 800 mg PO TID PRN PRN fever or pain 10/28/24 Unknown History apixaban 5 mg tablet (Eliquis) 5 mg PO BID 11/21/24 Unknown History atorvastatin 40 mg tablet 40 mg PO DAILY 11/21/24 Unknown History cyclobenzaprine 10 mg tablet 10 mg PO QHS cramps 11/21/24 Unknown History enoxaparin 120 mg/0.8 mL 105 mg subcut Q12.TCU 11/21/24 Unknown History subcutaneous syringe ferrous sulfate 325 mg (65 mg 325 mg PO QODAY 11/21/24 Unknown History iron) tablet (FeroSul) fluconazole 200 mg tablet 200 mg PO DAILY 11/21/24 Unknown History furosemide 20 mg tablet 40 mg PO DAILY 11/21/24 Unknown History lactulose 10 gram/15 mL oral 60 ml PO TID 11/21/24 Unknown History solution (Constulose) magnesium oxide 400 mg (241.3 mg 400 mg PO DAILY 11/21/24 Unknown History magnesium) tablet metformin 500 mg tablet,extended 500 mg PO QPM 11/21/24 Unknown History release 24 hr pantoprazole 20 mg tablet,delayed 20 mg PO DAILY 11/21/24 Unknown History release sodium bicarbonate 650 mg tablet 650 mg PO BID 11/21/24 Unknown History spironolactone 50 mg tablet 50 mg PO DAILY 11/21/24 Unknown History thiamine HCl (vitamin B1) 100 mg 100 mg PO DAILY 11/21/24 Unknown History tablet zinc sulfate 50 mg zinc (220 mg) 50 mg PO DAILY 11/21/24 Unknown History tablet Allergy/AdvReac Type Severity Reaction Status Date / Time No Known Allergies Allergy Verified 11/21/24 01:32 Family History Mother Heart disease Hypertension CAD (coronary artery disease) Myocardial infarction Father Hypertension Heart disease Heart failure Surgical History History of tonsillectomy and adenoidectomy Social History household members: significant other Smoking Status: Former smoker how long ago did patient quit smoking: Quit ~ 3-4 months prior (fall 2023), smoked 1.5 ppd since teen until quit. alcohol intake: never substance use type: does not use ROS ROS ED Constitutional Constitutional ED: Reports malaise and weakness; Denies chills or fever(s) Eyes Eyes: Denies change in vision or diplopia ENT ENT ED: Denies rhinorrhea or sore throat Cardiovascular Cardiovascular: Denies chest pain or palpitations Respiratory/Chest Respiratory/Chest: Denies cough or dyspnea Gastrointestinal Gastrointestinal: Reports abdominal pain; Denies diarrhea, melena, nausea or vomiting Genitourinary Genitourinary ED: Denies dysuria or hematuria Musculoskeletal Musculoskeletal: Reports back pain; Denies neck pain Integumentary Denies abscess or rash Neurologic Neurologic: Denies headache(s), paresthesias or weakness Psychiatric Psychiatric: Denies suicidal thoughts EXAM Physical Exam Const Vital Signs: 11/21/24 01:32 11/21/24 03:32 11/21/24 03:50 Temperature 98.4 F 98.4 F Temperature Source Oral Pulse Rate 65 81 79 Respiratory Rate 14 18 Blood Pressure 150/58 H 156/70 H Blood Pressure Mean 88 98 Pulse Ox 100 98 Oxygen Delivery Method 11/21/24 03:51 Temperature 98.4 F Temperature Source Oral Pulse Rate 84 Respiratory Rate 18 Blood Pressure 156/70 H Blood Pressure Mean 98 Pulse Ox 95 Oxygen Delivery Method Room Air Positive well nourished and well developed General Appearance ED: well developed and NAD HEENT Reports moist mucous membranes normocephalic and atraumatic Eyes PERRL and EOMs intact bilaterally Neck full ROM and supple Resp normal respiratory effort and clear to auscultation bilaterally Cardio regular rate, regular rhythm and no murmurs GI non-tender and non-distended GI Narrative: Benign abdomen, some distention and fluid wave but not tight, no rebound tenderness. Piece of gauze in the left mid abdomen, there is no active fluid discharge at this current time. No signs of localized skin infection here. Auscultation: normoactive bowel sounds Palpation: soft Back/Spine no CVA tenderness General Back: other FROM Extremity normal to inspection General Extremety ED: Yes edema; Negative for pulses abnormal or tenderness General Extremity: edema bilateral lower extremity Details: moderate; Negative for pulses abnormal Neuro oriented x3, CN's II-XII intact bilaterally and no sensory deficits noted Neuro Narrative: Nonfocal neurologic exam. Sensorium / Orientation: awake and alert Motor Exam: general weakness Skin no wounds Skin Narrative: Borderline jaundiced. Multiple areas of ecchymosis on arms and hands. Some purpura on the left side of the abdomen. MDM MDM MDM Narrative Medical decision making narrative: His hemoglobin is 8.3, lower than usual. Given his history I expect this is related to his hematuria, he has gross hematuria now with no clots. This may be related to his staghorn calculus and/or his INR of 2.6 which is likely related to his cirrhosis. 1 view chest x-ray on my interpretation shows some chronic right lower lobe scarring but no acute pneumonia, it is similar to his prior x-ray. He does not have any acute cough or dyspnea so I do not think he likely has acute pneumonia. His urine shows blood and leukocyte esterase as well as red blood cells and white blood cells, rare bacteria seen he has no urinary symptoms except for the blood, some send that for culture as it looks similar in the recent past and his culture was negative before. This and he does not have a leukocytosis to suggest an acute infection. BUN and creatinine are a little elevated compared to before, possibly due to dehydration, he was given some fluids, his lactic acid is a little elevated this is nonspecific and not necessarily indicative of sepsis in a patient with poor hepatic function. His ammonia level is in the normal range for the first time in a while and his prior hyponatremia is much improved. Upon reviewing some recent hospital records from his admission, he was septic. Had a stent in his left ureter several weeks prior to that related to a staghorn calculus, the stent did not need to be emergently intervened on and was patent, he has not yet followed up with urology as an outpatient. He also had C. difficile and a very high white blood count. The diarrhea for the last couple days he states his only been twice per day, less likely to be associated with acute C. difficile. Since he recently had C. difficile and I do not see definitive evidence of an acute infection on holding off on any new antibiotics. He states he is too weak to go home where he lives alone so I am calling the hospitalist for consultation/admission. History & Record Review Additional record(s) reviewed:: Prior inpatient record Lab Data Attestation: I reviewed the patient's lab results. Labs: Laboratory Results - last 24 hr 11/21/24 11/21/24 02:28 02:41 WBC 9.5 RBC 2.64 L Hgb 8.3 L Hct 24.6 L MCV 93.2 MCH 31.4 MCHC 33.7 RDW Std Deviation 57.1 H RDW Coeff of Francis 16.8 H Plt Count 167 MPV 11.6 Immature Gran % (Auto) 0.800 Neut % (Auto) 68.7 Lymph % (Auto) 13.9 L [place] % (Auto) 9.2 Eos % (Auto) 7.2 H Baso % (Auto) 0.2 Absolute Neuts (auto) 6.5 Absolute Lymphs (auto) 1.33 Nucleated RBC % 0 PT 28.2 H INR 2.6 Sodium 132 L Potassium 5.0 Chloride 103 Carbon Dioxide 17.5 L Anion Gap 11 BUN 28 H Creatinine 1.49 H Estim Creat Clear Calc 64.65 Est GFR (MDRD) Non-Af 54 L BUN/Creatinine Ratio 19.1 Glucose 188 H Lactic Acid 2.7 H* Calcium 8.7 Total Bilirubin 1.33 H AST 112 H ALT 61 H Alkaline Phosphatase 245 H Ammonia 17.9 Total Protein 5.2 L Albumin 2.5 L Globulin 2.7 Albumin/Globulin Ratio 0.9 Urine Color Yellow Urine Clarity Sl Cldy Urine pH 6.0 Ur Specific [place] 1.015 Urine Protein 500 H Urine Glucose (UA) Normal Urine Ketones Negative Urine Occult Blood 250 H Urine Nitrite Negative Urine Bilirubin Negative Urine Urobilinogen Normal Ur Leukocyte Esterase 500 H Urine RBC > 100 SEEN Urine WBC >100 SEEN Ur Squamous Epith Cells 0 SEEN Urine Bacteria RARE Urine Mucus 0 SEEN Radiography Diagnostic Testing: Clinical Impression(s) from Imaging Studies Chest X-Ray 11/21/24 02:38 IMPRESSION: Minimal airspace disease involving the right lower lobe, which could represent an early infectious or inflammatory process. Follow-up to resolution recommended. Reading Location: [facility] Management Discussion w/another healthcare provider: Hospitalist Discharge Plan Triage Chief Complaint: Abd Pain ED Provider: Herberth Carlson Dx/Rx/DC Orders Clinical Impression: Generalized weakness, Staghorn calculus, Ambulatory dysfunction, ABLA (acute blood loss anemia), Hematuria, Hepatic cirrhosis, Mild dehydration Prescriptions: No Action lidocaine 5 % Adhesive Patch,Medicated 3 patch topical DAILY Qty: 90 0RF Protocol: *Topical Application Instructions APPLICATION INSTRUCTIONS: to affected region Rx Instructions: Apply to low back daily for pain Xifaxan 550 mg Tablet 550 mg PO BID Qty: 60 0RF insulin lispro [Humalog KwikPen Insulin] 100 unit/mL Insulin Pen See Protocol subcut ACHS Qty: 0 0RF Protocol: 4. Sliding Scale Insulin High-Med Dosing Condition: 150-199 mg/dl = 2 units Condition: 200-259 mg/dl = 4 units Condition: 260-324 mg/dl = 6 units Condition: 325-374 mg/dl = 8 units Condition: 375-409 mg/dl = 10 units Condition: 410-449 mg/dl = 11 units Condition: Greater than 449 call physician Protocol Text: Suggested for: - Patients on Total Daily Insulin Dose of 56-80 units - Patient who are known to be insulin resistant or septic HIGH MEDIUM DOSING ALGORITHM ibuprofen 800 mg tablet 800 mg PO TID PRN PRN (Reason: fever or pain) folic acid 1 mg tablet 1 mg PO DAILY calcium carbonate-vitamin D3 [Oyster Shell Calcium-Vit D3] 500 mg-5 mcg (200 unit) tablet 1 tab PO DAILY acetaminophen 500 mg Tablet 1,000 mg PO Q8 PRN (Reason: fever or pain) cyclobenzaprine 10 mg tablet 10 mg PO QHS atorvastatin 40 mg tablet 40 mg PO DAILY fluconazole 200 mg tablet 200 mg PO DAILY ferrous sulfate [FeroSul] 325 mg (65 mg iron) tablet 325 mg PO QODAY furosemide 20 mg tablet 40 mg PO DAILY enoxaparin 120 mg/0.8 mL syringe 105 mg subcut Q12.TCU Eliquis 5 mg tablet 5 mg PO BID magnesium oxide 400 mg (241.3 mg magnesium) tablet 400 mg PO DAILY lactulose [Constulose] 10 gram/15 mL solution 60 ml PO TID sodium bicarbonate 650 mg tablet 650 mg PO BID metformin 500 mg tablet extended release 24 hr 500 mg PO QPM spironolactone 50 mg tablet 50 mg PO DAILY thiamine HCl (vitamin B1) 100 mg tablet 100 mg PO DAILY pantoprazole 20 mg tablet,delayed release (DR/EC) 20 mg PO DAILY zinc sulfate 50 mg zinc (220 mg) tablet 50 mg PO DAILY Primary Care Provider: Care Physician,No Primary Referrals: Care Physician,No Primary [Primary Care Provider] - Print Language: Tajik Disposition Disposition: [facility]
--- NOTE | 2024-11-21 02:38 | RAD_ITS ---
PROCEDURE: CHEST 1 VIEW (PORTABLE) 11/21/2024 REASON FOR EXAM: WEAKNESS TECHNIQUE: Frontal view of the chest. COMPARISON: None FINDINGS: Lungs are well aerated. Minimal airspace disease involving the right lower lobe. Remaining lung markings otherwise appears clear. No pneumothorax. No sizeable effusions. Heart size and great vessels are within normal limits. The osseous thorax appears intact. RAD/Chest 1 View (Portable) IMPRESSION: Minimal airspace disease involving the right lower lobe, which could represent an early infectious or inflammatory process. Follow-up to resolution recommended. Reading Location: [facility]
[2024-11-21 02:42] LABS: Absolute Lymphocyte Count 1.33 X10^3/uL (0.83-4.51); Absolute Neutrophil Count 6.5 X10^3/uL (2.0-7.7); Basophil# 0.02 X10^3/uL; Basophil% 0.2 % (0-1); Eosinophil# 0.69 X10^3/uL; Eosinophils% 7.2 % (0-5); Hematocrit 24.6 % (40-54); Hemoglobin 8.3 g/dL (13.0-16.5); Lymphocyte # 1.33 X10^3/ul (0.83-4.51); Lymphocyte % 13.9 % (19-41); Mean Corp Hgb Conc 33.7 g/dL (32-36); Mean Corpuscular Hgb 31.4 pg (27.0-32.0); Mean Corpuscular Volume 93.2 fL (80-94); Mean Platelet Vol. 11.6 fl (6.2-12.0); Monocyte# 0.88 X10^3/uL; Monocyte% 9.2 % (0-10); NRBC Flagged by Analyzer 0 % (0-5); Neutrophil # 6.54 X10^3/uL (2.7-7.7); Neutrophil % 68.7 % (47-70); Platelet Count 167 K/mm3 (150-450); RBC Distribution Width CV 16.8 % (11.6-14.6); RBC Distribution Width SD 57.1 fl (35.1-43.9); Red Blood Count 2.64 M/mm3 (4.6-6.2); White Blood Count 9.5 K/mm3 (4.4-11.0)
[2024-11-21 02:46] LABS: Mucous, Urine 0 SEEN /hpf (<or=2+); Squamous Epithelial Cells - UA 0 SEEN /hpf (0-5)
[2024-11-21 02:46] LABS: International Normalized Ratio 2.6; Prothrombin Time (Protime)PT. 28.2 SECONDS (11.7-14.9)
[2024-11-21 02:58] LABS: Glucose, Dipstick Normal (Normal); Ketone-Dipstick Negative (Negative); Leukocyte Esterase-Dipstick 500 /ul (Negative); Nitrite-Dipstick Negative (Negative); Occult Blood-Urine 250 /ul (Negative); Protein-Dipstick 500 mg/dl (Negative); Specific Gravity, Urine 1.015 (1.002-1.030); Urine Bilirubin Dipstick Negative (Negative); Urine Urobilinogen Normal (Normal)
[2024-11-21 03:11] LABS: Color, Urine Yellow (Yellow)
[2024-11-21 03:12] LABS: Bacteria RARE /hpf (None Seen); Red Blood Cells-Urine > 100 SEEN /hpf (0-5); Urine Clarity Sl Cldy (Clear); White Blood Cells >100 SEEN /hpf (0-5)
[2024-11-21 03:24] LABS: Lactic Acid 2.7 mmol/L (0.0-2.0)
[2024-11-21 03:25] LABS: ALB/GLOB Ratio 0.9 RATIO (0.9-2.4); AST(SGOT) 112 U/L (<=37); Alanine Aminotransfer ALT/SGPT 61 U/L (<=46); Albumin, Serum 2.5 g/dL (3.5-5.0); Alkaline Phosphatase 245 U/L (40-129); Ammonia 17.9 umol/L (16-60); Anion Gap 11 (5-15); BUN 28 mg/dL (4-19); BUN/Creat Ratio 19.1 RATIO (10-20); Calcium,Total 8.7 mg/dL (7.6-11.0); Carbon Dioxide 17.5 mmol/L (21.0-32.0); Chloride 103 mmol/L (98-108); Creatinine, Serum 1.49 mg/dL (0.70-1.20); EST Glomerular Filtration Rate 54 (>60); Estimated Creatinine Clearance 64.65 ml/min (50-250); Globulin 2.7 g/dL (2.2-4.2); Glucose 188 mg/dL (70-99); Protein, Total 5.2 g/dL (5.9-8.4); Sodium Level 132 mmol/L (133-145); Total Bilirubin 1.33 mg/dL (0.00-1.30)
--- NOTE | 2024-11-21 04:00 | PCM.HP.STD ---
[facility] - General General Date of Admission: 11/21/24 Date of Service: 11/21/24 Chief Complaint: Worsening weakness HPI Narrative FRANKLIN ARCHULETA, is a 59 M who presented to [facility] ED on 11/21/2024 with worsening weakness. Patient has complex past medical history with recent prolonged hospitalization. Medical history is significant for decompensated cirrhosis, left-sided staghorn calculus with hematuria and prior ureteral stent placement, and type 2 diabetes mellitus. He was recently hospitalized here from 10/29-11/10 and then transferred to [facility] and hospitalized there until 11/18. He presented on 10/29 with abdominal pain and diarrhea and was found to be positive for C. difficile colitis. He did show improvement with treatment of C. difficile but then developed worsening abdominal pain with distention. CT abdomen pelvis on 11/09 showed moderate ascites but more importantly showed interval progression of extensive thrombosis within the portal splenic confluence with not complete occlusion of the extrahepatic and intrahepatic portal veins. Given his low hemoglobin with hematuria, it was felt he was unsafe to anticoagulate here and was transferred to [facility] for further management. [facility] records reviewed from [facility] hospitalization. He underwent liver transplant evaluation there but was determined not to be a candidate currently given poor social support. He was started on heparin but developed hematuria with drop in platelets so heparin was discontinued. Vascular medicine and hematology followed. There was concern for DIC at one point so he was given 2 units of cryo as well as platelet transfusion with improvement. Was able to be restarted on heparin and then transition to therapeutic Lovenox with hemoglobin remaining stable. He completed course of p.o. vancomycin and Flagyl for C. difficile infection there. Was noted to be weak there but he refused to work with therapy multiple times so he ultimately was discharged home on 11/18. He presented to the ED today with worsening weakness and inability to take care of himself at home. He lives with a few family members but states he does not get much support from them. In the ED he was hemodynamically stable on room air. Labs unable for hemoglobin 8.3 (last hemoglobin was 7.2 at [facility] on 11/18), platelet count 167, sodium 132, creatinine 1.49 (baseline 1.1-1.2), lactate 2.7. Patient did note that he was still having some diarrhea especially on lactulose and stopped taking his lactulose yesterday. However he has felt dry and dehydrated over the past few days. Given his worsening weakness with difficulty ambulating, hospitalist was contacted for admission. I saw the patient at bedside in the ED. Patient was fatigued appearing and chronically ill-appearing on exam. He was able to answer questions appropriately for me. Noted that generally he feels weaker than his normal and is having difficulty getting up off the toilet or doing other things for himself. He is agreeable to working with therapy and would be agreeable to SNF placement on discharge. Denied any other acute concerns currently. [facility] Medical History Diarrhea Sepsis Acidosis, lactic Acute hypotension Acute UTI Chronic hypotension Obesity (BMI 30-39.9) Chronic back pain ISABEL (acute kidney injury) Hypotension Hepatic encephalopathy Hyperbilirubinemia Liver cirrhosis secondary to HARRIS (nonalcoholic steatohepatitis) HLD (hyperlipidemia) HTN (hypertension) Thrombocytopenia Chronic anemia Former tobacco use Diabetes mellitus, type 2 ABBY on CPAP Back pain Home Medications ?Medication ?Instructions ?Recorded ?Last Taken ?Type lidocaine 5 % topical patch 3 patch topical DAILY #90 ea 09/02/24 Unknown Rx rifaximin 550 mg tablet (Xifaxan) 550 mg PO BID #60 tabs 09/02/24 Unknown Rx insulin lispro 100 unit/mL See Protocol subcut ACHS #0 mL 09/14/24 Unknown Rx subcutaneous pen (Humalog KwikPen (U-100) Insulin) acetaminophen 500 mg tablet 1,000 mg PO Q8 PRN fever or pain 10/28/24 Unknown History calcium 500 mg (as 1 tab PO DAILY 10/28/24 Unknown History carbonate)-vitamin D3 5 mcg (200 unit) tablet (Oyster Shell Calcium-Vitamin D3) folic acid 1 mg tablet 1 mg PO DAILY 10/28/24 Unknown History ibuprofen 800 mg tablet 800 mg PO TID PRN PRN fever or pain 10/28/24 Unknown History apixaban 5 mg tablet (Eliquis) 5 mg PO BID 11/21/24 Unknown History atorvastatin 40 mg tablet 40 mg PO DAILY 11/21/24 Unknown History cyclobenzaprine 10 mg tablet 10 mg PO QHS cramps 11/21/24 Unknown History enoxaparin 120 mg/0.8 mL 105 mg subcut Q12.TCU 11/21/24 Unknown History subcutaneous syringe ferrous sulfate 325 mg (65 mg 325 mg PO QODAY 11/21/24 Unknown History iron) tablet (FeroSul) fluconazole 200 mg tablet 200 mg PO DAILY 11/21/24 Unknown History furosemide 20 mg tablet 40 mg PO DAILY 11/21/24 Unknown History lactulose 10 gram/15 mL oral 60 ml PO TID 11/21/24 Unknown History solution (Constulose) magnesium oxide 400 mg (241.3 mg 400 mg PO DAILY 11/21/24 Unknown History magnesium) tablet metformin 500 mg tablet,extended 500 mg PO QPM 11/21/24 Unknown History release 24 hr pantoprazole 20 mg tablet,delayed 20 mg PO DAILY 11/21/24 Unknown History release sodium bicarbonate 650 mg tablet 650 mg PO BID 11/21/24 Unknown History spironolactone 50 mg tablet 50 mg PO DAILY 11/21/24 Unknown History thiamine HCl (vitamin B1) 100 mg 100 mg PO DAILY 11/21/24 Unknown History tablet zinc sulfate 50 mg zinc (220 mg) 50 mg PO DAILY 11/21/24 Unknown History tablet Allergy/AdvReac Type Severity Reaction Status Date / Time No Known Allergies Allergy Verified 11/21/24 01:32 Family History Mother Heart disease Hypertension CAD (coronary artery disease) Myocardial infarction Father Hypertension Heart disease Heart failure Surgical History History of tonsillectomy and adenoidectomy Social History household members: significant other Smoking Status: Former smoker how long ago did patient quit smoking: Quit ~ 3-4 months prior (fall 2023), smoked 1.5 ppd since teen until quit. alcohol intake: never substance use type: does not use ROS Constitutional Constitutional: Reports fatigue and weakness; Denies chills or fever(s) Cardiovascular Cardiovascular: Denies chest pain Respiratory/Chest Respiratory/Chest: Denies cough or shortness of breath at rest Gastrointestinal Gastrointestinal: Reports loose stools; Denies abdominal pain, constipation, nausea or vomiting Genitourinary Genitourinary: Denies dysuria Musculoskeletal Musculoskeletal: Denies arthralgias or myalgias Neurologic Neurologic: Denies dizziness or headache(s) Vital Signs Vital Signs Vital Signs: 11/21/24 01:32 11/21/24 03:32 11/21/24 03:50 Temperature 98.4 F 98.4 F Temperature Source Oral Pulse Rate 65 81 79 Respiratory Rate 14 18 Blood Pressure 150/58 H 156/70 H Blood Pressure Mean 88 98 Pulse Ox 100 98 Oxygen Delivery Method 11/21/24 03:51 Temperature 98.4 F Temperature Source Oral Pulse Rate 84 Respiratory Rate 18 Blood Pressure 156/70 H Blood Pressure Mean 98 Pulse Ox 95 Oxygen Delivery Method Room Air Weight Weight: 105.4 kg Body Mass Index (BMI) 34.3 Physical Exam Const alert, oriented x3 and no apparent distress Constitutional Narrative: Middle-age male, appears older than stated age, fatigued and chronically ill-appearing, otherwise laying back comfortably in bed, answering questions appropriately, in no acute distress. General Appearance: cooperative and comfortable HEENT normocephalic, head/scalp atraumatic, hearing grossly normal bilaterally and nasal mucous membranes and turbinates normal Eyes PERRL, EOMs intact bilaterally and conjunctivae normal Neck full ROM Chest inspection of chest normal Resp normal respiratory effort, normal air movement, no use of accessory muscles and clear to auscultation bilaterally Cardio regular rate, regular rhythm, no murmurs and peripheral pulses 2+ throughout GI GI Narrative: Abdomen mildly distended with fluid wave noted but soft and nontender to palpation. Erythematous area at Lovenox injection site noted but no sign of infection. Back/Spine normal ROM Extremity Extremity Narrative: +2-3 lower extremity pitting edema noted bilaterally. Skin no rashes or lesions noted Psych mental status grossly normal Psych Narrative: Flat affect. Results Lab / Micro Data 11/21/24 02:28 11/21/24 02:28 Labs: Laboratory Results - last 24 hr 11/21/24 02:28: WBC 9.5, RBC 2.64 L, Hgb 8.3 L, Hct 24.6 L, MCV 93.2, MCH 31.4, MCHC 33.7, RDW Std Deviation 57.1 H, RDW Coeff of Francis 16.8 H, Plt Count 167, MPV 11.6, Immature Gran % (Auto) 0.800, Neut % (Auto) 68.7, Lymph % (Auto) 13.9 L, [place] % (Auto) 9.2, Eos % (Auto) 7.2 H, Baso % (Auto) 0.2, Absolute Neuts (auto) 6.5, Absolute Lymphs (auto) 1.33, Nucleated RBC % 0, PT 28.2 H, INR 2.6, Sodium 132 L, Potassium 5.0, Chloride 103, Carbon Dioxide 17.5 L, Anion Gap 11, BUN 28 H, Creatinine 1.49 H, Estim Creat Clear Calc 64.65, Est GFR (MDRD) Non-Af 54 L, BUN/Creatinine Ratio 19.1, Glucose 188 H, Lactic Acid 2.7 H*, Calcium 8.7, Total Bilirubin 1.33 H, AST 112 H, ALT 61 H, Alkaline Phosphatase 245 H, Ammonia 17.9, Total Protein 5.2 L, Albumin 2.5 L, Globulin 2.7, Albumin/Globulin Ratio 0.9 11/21/24 02:41: Urine Color Yellow, Urine Clarity Sl Cldy, Urine pH 6.0, Ur Specific [place] 1.015, Urine Protein 500 H, Urine Glucose (UA) Normal, Urine Ketones Negative, Urine Occult Blood 250 H, Urine Nitrite Negative, Urine Bilirubin Negative, Urine Urobilinogen Normal, Ur Leukocyte Esterase 500 H, Urine RBC > 100 SEEN, Urine WBC >100 SEEN, Ur Squamous Epith Cells 0 SEEN, Urine Bacteria RARE, Urine Mucus 0 SEEN Imaging Radiology Impression Chest X-Ray 11/21/24 02:38 IMPRESSION: Minimal airspace disease involving the right lower lobe, which could represent an early infectious or inflammatory process. Follow-up to resolution recommended. Reading Location: [facility] Assessment & Plan Assessment/Plan (1) Weakness: (2) Mild dehydration: PLAN: Plan Patient is a 59-year-old male who presented to [facility] ED on 11/21/2024 with worsening weakness. 1. Acute on chronic debility ? Admit under observation status to [facility]. PT/OT/case management consulted. Patient with borderline therapy scores during recent hospitalization and suspect worsening weakness is multifactorial from deconditioning and mild dehydration. Suspect he will require SNF placement on discharge but appreciate therapy recommendations. 2. Decompensated cirrhosis with recurrent ascites secondary to NAFLD ? Recently underwent liver transplant evaluation at [facility] during hospitalization there last week, see HPI for further details. Was determined he was not a liver transplant candidate due to poor social support. Had paracentesis done at [facility] on 11/11 and 11/16 with 3 L and 5.2 L removed. No evidence of SBP. Mild abdominal distention with fluid wave noted on this admission but abdomen soft and nontender to palpation. No need for inpatient GI consultation or urgent paracentesis, plan for close outpatient follow-up. Notably was somewhat dry appearing with mild creatinine elevation on admit. Will hold home Lasix and spironolactone today and restart on 11/22. Will also hold home lactulose today and restart on 11/22. Continue home Xifaxan. 3. Extensive portal vein thrombosis ? Diagnosed on CT abdomen pelvis here on 11/09. Required transfer to [facility] for further management. See [facility] for further details. Continue therapeutic subcu Lovenox twice daily at this time. Of note, had Eliquis also listed on his chart but per [facility] records it is clear he should be on Lovenox currently and not on Eliquis. 4. Chronic iron deficiency anemia ? Hemoglobin 8.3 on admit. Most recent hemoglobin was 7.2 at [facility]. Monitor CBC daily. Okay to continue therapeutic Lovenox as noted above. Continue home iron supplement. 5. Chronic staghorn calculi with hematuria ? Follows with Dr. Rascon. Has prior history of ureteral stent placement. Dr. Rascon noted during recent admission here that previously placed stents were in good position with no hydronephrosis noted. Given his severe comorbidities as noted above, holding off on surgical management for staghorn calculus at this time. Continue outpatient urology follow-up. 6. Type 2 diabetes mellitus ? Treat with sliding scale insulin with meals while inpatient. 7. Mild creatinine elevation ? Creatinine 1.49 on admit, baseline around 1.1-1.2. Presumed mild prerenal ISABEL secondary to diarrhea and home indications. Will give 500 cc bolus of fluids on admit and hold home Lasix and spironolactone for today with plan to restart on 11/22. Monitor daily BMP and urine output. 8. Mild hyponatremia ? Sodium 132 on admit. Appears to be around baseline. Monitor daily BMP. 9. Esophageal candidiasis ? Had EGD done on 11/14 at [facility] for liver transplant evaluation and was found to have esophageal candidiasis. Continue home fluconazole. 10. Recent C. difficile infection ? Completed p.o. vancomycin and Flagyl courses during hospitalization at [facility]. No need for further treatment at this time. 11. Class I obesity ? BMI 33 on admit. Complicates hospital course, care and prognosis. DVT prophylaxis: Not indicated, on therapeutic Lovenox CODE STATUS: Full code, verified Expected disposition: Likely SNF, 1 to 2 days Total clinical time spent by myself addressing the patient's medical issues, reviewing all the data, and collaborating with patient's care team: 75 minutes. Charges/Coding Visit Charges Inpatient E&M: 34650 Init Hosp L3
[2024-11-21] MEDS: LACTATED RINGERS 500 ML 80 ML IV (05:01)
[2024-11-21 05:50] LABS: Reflex Lactate? Y
[2024-11-21 06:31] LABS: Lactic Acid 2.2 mmol/L (0.0-2.0)
[2024-11-21] MEDS: Insulin Lispro 100 UNIT/ML INSULN.PEN SC ×4 (07:01→23:15)
[2024-11-21 07:16] LABS: Bedside Glucose 195 mg/dL (74-106)
[2024-11-21 07:27] LABS: Hematocrit 25.1 % (40-54); Hemoglobin 8.3 g/dL (13.0-16.5); Mean Corp Hgb Conc 33.1 g/dL (32-36); Mean Corpuscular Hgb 31.1 pg (27.0-32.0); Mean Platelet Vol. 11.4 fl (6.2-12.0); Platelet Count 103 K/mm3 (150-450); RBC Distribution Width CV 16.5 % (11.6-14.6); RBC Distribution Width SD 57.1 fl (35.1-43.9); Red Blood Count 2.67 M/mm3 (4.6-6.2); White Blood Count 7.1 K/mm3 (4.4-11.0)
--- NOTE | 2024-11-21 07:31 | PN.HOSP_ITS ---
Reason for Visit Reason for Visit: Diagnoses Dehydration (11/21/24) Weakness (11/21/24) Objective Data Objective Data Vital Signs: Vital Signs Temp Pulse Resp BP Pulse Ox O2 Del Method 98.0 F 80 18 79/49 L 96 Room Air 11/21/24 05:46 11/21/24 05:46 11/21/24 05:46 11/21/24 05:46 11/21/24 07:25 11/21/24 07:25 Oxygen Delivery Method Room Air Weight: 226 lb 6.636 oz Body Mass Index (BMI) 33.4 Lab / Micro Data 11/21/24 09:35 11/21/24 09:35 Labs: Laboratory Results - last 24 hr 11/21/24 02:28: WBC 9.5, RBC 2.64 L, Hgb 8.3 L, Hct 24.6 L, MCV 93.2, MCH 31.4, MCHC 33.7, RDW Std Deviation 57.1 H, RDW Coeff of Francis 16.8 H, Plt Count 167, MPV 11.6, Immature Gran % (Auto) 0.800, Neut % (Auto) 68.7, Lymph % (Auto) 13.9 L, [place] % (Auto) 9.2, Eos % (Auto) 7.2 H, Baso % (Auto) 0.2, Absolute Neuts (auto) 6.5, Absolute Lymphs (auto) 1.33, Nucleated RBC % 0, PT 28.2 H, INR 2.6, Sodium 132 L, Potassium 5.0, Chloride 103, Carbon Dioxide 17.5 L, Anion Gap 11, BUN 28 H, Creatinine 1.49 H, Estim Creat Clear Calc 64.65, Est GFR (MDRD) Non-Af 54 L, BUN/Creatinine Ratio 19.1, Glucose 188 H, Lactic Acid 2.7 H*, Calcium 8.7, Total Bilirubin 1.33 H, AST 112 H, ALT 61 H, Alkaline Phosphatase 245 H, Ammonia 17.9, Total Protein 5.2 L, Albumin 2.5 L, Globulin 2.7, Albumin/Globulin Ratio 0.9 11/21/24 02:41: Urine Color Yellow, Urine Clarity Sl Cldy, Urine pH 6.0, Ur Specific [place] 1.015, Urine Protein 500 H, Urine Glucose (UA) Normal, Urine Ketones Negative, Urine Occult Blood 250 H, Urine Nitrite Negative, Urine Bilirubin Negative, Urine Urobilinogen Normal, Ur Leukocyte Esterase 500 H, Urine RBC > 100 SEEN, Urine WBC >100 SEEN, Ur Squamous Epith Cells 0 SEEN, Urine Bacteria RARE, Urine Mucus 0 SEEN 11/21/24 05:20: Lactic Acid 2.2 H* 11/21/24 06:57: POC Glucose 195 H 11/21/24 07:20: WBC 7.1, RBC 2.67 L, Hgb 8.3 L, Hct 25.1 L, MCV 94.0, MCH 31.1, MCHC 33.1, RDW Std Deviation 57.1 H, RDW Coeff of Francis 16.5 H, Plt Count 103 L, MPV 11.4 Radiography Diagnostic Testing: Radiology Impression Chest X-Ray 11/21/24 02:38 IMPRESSION: Minimal airspace disease involving the right lower lobe, which could represent an early infectious or inflammatory process. Follow-up to resolution recommended. Reading Location: [facility] Physical Exam Narrative Patient complain of abdominal pain all around diffuse nonspecific. Patient had paracentesis in [facility] and is still leaking ascites fluid. No fever. BP on lower side 79/49, 94/52. Patient not interested in giving history and also in pain. Physical exam. Physical exam is limited due to patient's cooperation General: Lethargic, oriented x 3. HEENT: Atraumatic, PERRLA, EOMI, Normocephalic Oral: No Gingival or Mucosal Lesions/ Ulcerations Neck: Supple, No JVD, Negative Carotid Bruits Chest wall/Lungs: Air entry diminished in bilateral lung bases. Cardiovascular: Regular rhythm, no murmur Abdomen: Bowel sounds sluggish. Abdomen distended. Leaking ascites fluid from paracentesis site. Diffuse tenderness. Voluntary guarding. : No dysuria. No renal angle tenderness. No suprapubic tenderness. Extremities: No edema, Capillary Refill Less than 3 Seconds Skin: No rashes, No breakdown Musculoskeletal: No Tenderness to Palpation of Joints or Extremities. ROM restricted Neurological: No acute focal neurological deficit. Psych/Mental Status: Flat affect Assessment & Plan Assessment/Plan (1) Weakness: (2) Mild dehydration: PLAN: Plan Patient is a 59-year-old male who presented to [facility] ED on 11/21/2024 with worsening weakness. Patient had mild abdominal pain especially in the left leg, diarrhea last couple days, patient also has hematuria on and off, worse in the last 2 to 3 weeks. 1. Acute on chronic debility due to cirrhosis and other multiple comorbidities as mentioned above ? Admit under observation status to [facility]. PT/OT/case management consulted. Patient with borderline therapy scores during recent hospitalization and suspect worsening weakness is multifactorial from deconditioning and mild dehydration. Suspect he will require SNF placement on discharge but appreciate therapy recommendations. 2. Decompensated cirrhosis with recurrent ascites secondary to NAFLD ? Recently underwent liver transplant evaluation at [facility] during hospitalization there last week, see [facility] for further details. Was determined he was not a liver transplant candidate due to poor social support. Had paracentesis done at [facility] on 11/11 and 11/16 with 3 L and 5.2 L removed. No evidence of SBP. Mild abdominal distention with fluid wave noted on this admission but abdomen soft and nontender to palpation. No need for inpatient GI consultation or urgent paracentesis, plan for close outpatient follow-up. Notably was somewhat dry appearing with mild creatinine elevation on admit. Will hold home Lasix and spironolactone today and restart on 11/22. Will also hold home lactulose today and restart on 11/22. Continue home Xifaxan. 3. Extensive portal vein thrombosis ? Diagnosed on CT abdomen pelvis here on 11/09. Required transfer to [facility] for further management. They could not do much there. [facility] therefore continued See [facility] for further details. Continue therapeutic subcu Lovenox twice daily at this time. Of note, had Eliquis also listed on his chart but per [facility] records it is clear he should be on Lovenox 4. Chronic iron deficiency anemia ? Hemoglobin 8.3 on admit. Most recent hemoglobin was 7.2 at [facility]. H&H 8.5/25%. Continue iron supplement. 5. Chronic staghorn calculi with hematuria ? Follows with Dr. Rascon. Has prior history of ureteral stent placement. Dr. Rascon noted during recent admission here that previously placed stents were in good position with no hydronephrosis noted. Given his severe comorbidities as noted above, holding off on surgical management for staghorn calculus at this time. Continue outpatient urology follow-up. 6. Type 2 diabetes mellitus ? Treat with sliding scale insulin with meals while inpatient. 7. Mild creatinine elevation ? Creatinine 1.49 on admit, baseline around 1.1-1.2. Presumed mild prerenal ISABEL secondary to diarrhea and home indications. Will give 500 cc bolus of fluids on admit and hold home Lasix and spironolactone for today with plan to restart on 11/22. Monitor daily BMP and urine output. 8. Mild hyponatremia CKD stage II or possible GFR underestimation due to cirrhosis ? Sodium 132 on admit. Sodium 134. BUN/creatinine 28/1.49, better 28/1.32. Patient does not have muscle mass there might be underestimation of GFR. 9. Esophageal candidiasis ? Had EGD done on 11/14 at [facility] for liver transplant evaluation and was found to have esophageal candidiasis. Continue home fluconazole. 10. Recent C. difficile infection ? Completed p.o. vancomycin and Flagyl courses during hospitalization at [facility]. No need for further treatment at this time. 11. Class I obesity ? BMI 33 on admit. Complicates hospital course, care and prognosis. DVT prophylaxis: Not indicated, on therapeutic Lovenox CODE STATUS: Full code, verified Expected disposition: Likely SNF, 1 to 2 days Charges/Coding Visit Charges Inpatient E&M: 94192 Subs Hosp L2
[2024-11-21] MEDS: Spironolactone 50 MG Tablet PO (08:25)
[2024-11-21] MEDS: Midodrine HCl 5 MG Tablet 10 MG PO ×3 (08:25→16:25)
[2024-11-21] MEDS: Folic Acid 1 MG Tablet PO (08:26)
[2024-11-21] MEDS: Fluconazole 100 MG Tablet 200 MG PO (08:26)
[2024-11-21] MEDS: Albumin Human 25% (100 mL) 25 GM/100 ML BAG IV ×3 (08:52→23:48)
[2024-11-21 09:51] LABS: Reflex Lactate? Y
[2024-11-21 10:03] LABS: Hemoglobin 8.5 g/dL (13.0-16.5); Mean Corpuscular Hgb 31.1 pg (27.0-32.0); Mean Corpuscular Volume 91.6 fL (80-94); Mean Platelet Vol. 11.7 fl (6.2-12.0); Platelet Count 119 K/mm3 (150-450); RBC Distribution Width CV 16.4 % (11.6-14.6); RBC Distribution Width SD 54.6 fl (35.1-43.9); Red Blood Count 2.73 M/mm3 (4.6-6.2); White Blood Count 7.3 K/mm3 (4.4-11.0)
[2024-11-21] MEDS: Calcium Carb/Vitamin D 1 TABLET Tablet PO (10:44)
[2024-11-21] MEDS: Magnesium Chloride 64 MG Delay Rel.Tablet 128 MG PO (10:44)
[2024-11-21] MEDS: Pantoprazole Sodium 20 MG Tablet PO (10:44)
[2024-11-21] MEDS: Enoxaparin 120 MG/0.8 ML Syringe 105 MG SC ×2 (10:44→23:14)
[2024-11-21] MEDS: 0.9% Saline Lock 10 ML Syringe IV ×4 (10:45→23:53)
[2024-11-21] MEDS: rifAXIMin 550 MG Tablet PO ×2 (10:45→23:15)
[2024-11-21] MEDS: Thiamine Hydrochloride 100 MG Tablet PO (10:45)
[2024-11-21] MEDS: Ceftriaxone 1 GM/50 ML BAG IV (11:02)
[2024-11-21] MEDS: 0.9% Normal Saline (100mL Bag) 100 ML 15 ML IV (11:02)
[2024-11-21 11:21] LABS: Lactic Acid 1.7 mmol/L (0.0-2.0)
[2024-11-21 11:22] LABS: Bilirubin, Direct 0.85 mg/dL (0.00-0.30)
[2024-11-21 11:48] LABS: Bedside Glucose 215 mg/dL (74-106)
[2024-11-21 11:54] LABS: ALB/GLOB Ratio 1.1 RATIO (0.9-2.4); AST(SGOT) 91 U/L (<=37); Alanine Aminotransfer ALT/SGPT 58 U/L (<=46); Albumin, Serum 2.8 g/dL (3.5-5.0); Alkaline Phosphatase 244 U/L (40-129); Anion Gap 10 (5-15); BUN 28 mg/dL (4-19); BUN/Creat Ratio 21.3 RATIO (10-20); Calcium,Total 8.9 mg/dL (7.6-11.0); Carbon Dioxide 21.6 mmol/L (21.0-32.0); Chloride 103 mmol/L (98-108); Creatinine, Serum 1.32 mg/dL (0.70-1.20); EST Glomerular Filtration Rate 63 (>60); Estimated Creatinine Clearance 72.04 ml/min (50-250); Globulin 2.6 g/dL (2.2-4.2); Glucose 218 mg/dL (70-99); Protein, Total 5.4 g/dL (5.9-8.4); Sodium Level 134 mmol/L (133-145); Total Bilirubin 1.35 mg/dL (0.00-1.30)
[2024-11-21] MEDS: Ondansetron 4 MG/2 ML Vial IV (12:50)
[2024-11-21] MEDS: Sodium Bicarbonate 650 MG Tablet PO ×2 (14:31→23:14)
[2024-11-21 16:54] LABS: Bedside Glucose 205 mg/dL (74-106)
[2024-11-21] MEDS: Atorvastatin Calcium 40 MG Tablet PO (23:14)
[2024-11-21 23:38] LABS: Bedside Glucose 171 mg/dL (74-106)
[2024-11-22 01:58] VITALS: BP 108/59; PULSE 81; RESP 16; TEMP 36.8; O2SAT 99
[2024-11-22 04:46] VITALS: BP 102/56; PULSE 89; RESP 20; TEMP 36.8; O2SAT 98
[2024-11-22] MEDS: 0.9% Saline Lock 10 ML Syringe IV ×3 (04:50→23:22)
[2024-11-22] MEDS: oxyCODONE 5 MG Tablet PO ×2 (04:50→23:29)
[2024-11-22] MEDS: Sodium Bicarbonate 650 MG Tablet PO ×3 (04:51→23:24)
[2024-11-22] MEDS: Lactulose 20 GM/30 ML UDC 10 GM PO ×3 (04:51→23:22)
[2024-11-22] MEDS: Insulin Lispro 100 UNIT/ML INSULN.PEN SC ×4 (06:23→23:23)
[2024-11-22 06:28] LABS: International Normalized Ratio 2.4; Prothrombin Time (Protime)PT. 26.8 SECONDS (11.7-14.9)
[2024-11-22 06:49] LABS: ALB/GLOB Ratio 1.5 RATIO (0.9-2.4); AST(SGOT) 65 U/L (<=37); Alanine Aminotransfer ALT/SGPT 41 U/L (<=46); Albumin, Serum 2.8 g/dL (3.5-5.0); Alkaline Phosphatase 171 U/L (40-129); Anion Gap 9 (5-15); BUN 23 mg/dL (4-19); BUN/Creat Ratio 20.3 RATIO (10-20); Bilirubin, Direct 0.73 mg/dL (0.00-0.30); Calcium,Total 8.6 mg/dL (7.6-11.0); Chloride 108 mmol/L (98-108); Creatinine, Serum 1.11 mg/dL (0.70-1.20); EST Glomerular Filtration Rate 77 (>60); Estimated Creatinine Clearance 85.67 ml/min (50-250); Globulin 1.9 g/dL (2.2-4.2); Glucose 158 mg/dL (70-99); Potassium 4.1 mmol/L (3.3-5.1); Protein, Total 4.7 g/dL (5.9-8.4); Sodium Level 136 mmol/L (133-145); Total Bilirubin 1.09 mg/dL (0.00-1.30)
[2024-11-22 06:49] LABS: Bedside Glucose 163 mg/dL (74-106)
[2024-11-22 08:36] VITALS: BP 106/62; PULSE 93; RESP 18; TEMP 36.7; O2SAT 100
[2024-11-22] MEDS: Enoxaparin 120 MG/0.8 ML Syringe 105 MG SC ×2 (08:44→23:24)
[2024-11-22] MEDS: Ferrous Sulfate 325 MG Tablet PO (08:44)
[2024-11-22] MEDS: Magnesium Chloride 64 MG Delay Rel.Tablet 128 MG PO (08:44)
[2024-11-22] MEDS: Folic Acid 1 MG Tablet PO (08:44)
[2024-11-22] MEDS: rifAXIMin 550 MG Tablet PO ×2 (08:45→23:24)
[2024-11-22] MEDS: Pantoprazole Sodium 20 MG Tablet PO (08:45)
[2024-11-22] MEDS: Calcium Carb/Vitamin D 1 TABLET Tablet PO (08:45)
[2024-11-22] MEDS: Thiamine Hydrochloride 100 MG Tablet PO (08:45)
[2024-11-22] MEDS: Midodrine HCl 5 MG Tablet 10 MG PO ×3 (08:52→16:42)
[2024-11-22] MEDS: Ceftriaxone 1 GM/50 ML BAG IV (09:44)
--- NOTE | 2024-11-22 11:11 | NURSING ---
Call returned to Sylvia. This nurse answered questions regarding POC. Reassured her that CM will be working on situation.
[2024-11-22 11:16] LABS: Bedside Glucose 170 mg/dL (74-106)
--- NOTE | 2024-11-22 11:48 | PCM.PN.HOSP ---
Reason for Visit Reason for Visit: Diagnoses Dehydration (11/21/24) Weakness (11/21/24) Objective Data Objective Data Vital Signs: Vital Signs Temp Pulse Resp BP Pulse Ox O2 Del Method 98.1 F 93 18 106/62 100 Room Air 11/22/24 08:36 11/22/24 08:36 11/22/24 08:36 11/22/24 08:36 11/22/24 08:36 11/22/24 09:27 Oxygen Delivery Method Room Air Weight: 226 lb 6.636 oz Body Mass Index (BMI) 33.4 Intake & Output: Intake and Output for Last 24 Hours 11/20/24 11/21/24 11/22/24 23:59 23:59 23:59 Intake Total 1587.33 / 1587.33 350 / 350 Output Total 240 / 590 850 / 850 Balance 1347.33 / 997.33 -500 / -500 Lab / Micro Data 11/21/24 09:35 11/22/24 05:58 Labs: Laboratory Results - last 24 hr 11/21/24 09:35: Sodium 134, Potassium 4.0, Chloride 103, Carbon Dioxide 21.6, Anion Gap 10, BUN 28 H, Creatinine 1.32 H, Estim Creat Clear Calc 72.04, Est GFR (MDRD) Non-Af 63, BUN/Creatinine Ratio 21.3 H, Glucose 218 H, Calcium 8.9, Total Bilirubin 1.35 H, AST 91 H, ALT 58 H, Alkaline Phosphatase 244 H, Total Protein 5.4 L, Albumin 2.8 L, Globulin 2.6, Albumin/Globulin Ratio 1.1 11/21/24 11:22: POC Glucose 215 H 11/21/24 16:07: POC Glucose 205 H 11/21/24 22:09: POC Glucose 171 H 11/22/24 05:58: PT 26.8 H, INR 2.4, Sodium 136, Potassium 4.1, Chloride 108, Carbon Dioxide 20.0 L, Anion Gap 9, BUN 23 H, Creatinine 1.11, Estim Creat Clear Calc 85.67, Est GFR (MDRD) Non-Af 77, BUN/Creatinine Ratio 20.3 H, Glucose 158 H, Calcium 8.6, Total Bilirubin 1.09, Direct Bilirubin 0.73 H, AST 65 H, ALT 41, Alkaline Phosphatase 171 H, Total Protein 4.7 L, Albumin 2.8 L, Globulin 1.9 L, Albumin/Globulin Ratio 1.5 11/22/24 06:21: POC Glucose 163 H 11/22/24 10:41: POC Glucose 170 H Micro: Microbiology 11/21/24 02:41 Interface Orders Urine Culture - Preliminary GNR lactose eligibility technician GPC Poss Enterococcus sp Physical Exam Narrative Patient is more awake and alert and able to give some history. Abdominal pain is better. Patient had paracentesis in [facility] and is still leaking ascites fluid. No fever. Blood pressure improved above systolic 100 and I think that is his baseline Physical exam. General: However, alert oriented x 3 HEENT: Atraumatic, PERRLA, EOMI, Normocephalic Oral: No Gingival or Mucosal Lesions/ Ulcerations Neck: Supple, No JVD, Negative Carotid Bruits Chest wall/Lungs: Air entry diminished in bilateral lung bases. No crepitations or rhonchi Cardiovascular: Regular rhythm, no murmur Abdomen: Bowel sounds sluggish. Mild abdomen distended. Leaking ascites fluid from paracentesis site. Mild tenderness on left side. : No dysuria. No renal angle tenderness. No suprapubic tenderness. Extremities: No edema, Capillary Refill Less than 3 Seconds Skin: No rashes, No breakdown Musculoskeletal: No Tenderness to Palpation of Joints or Extremities. ROM restricted Neurological: No acute focal neurological deficit. Psych/Mental Status: Flat affect Assessment & Plan Assessment/Plan (1) Weakness: (2) Mild dehydration: PLAN: Plan Patient is a 59-year-old male who presented to [facility] ED on 11/21/2024 with worsening weakness. Patient had mild abdominal pain especially in the left leg, diarrhea last couple days, patient also has hematuria on and off, worse in the last 2 to 3 weeks. 1. Acute on chronic debility due to cirrhosis and other multiple comorbidities as mentioned above ? Admit under observation status to [facility]. PT/OT/case management consulted. Patient with borderline therapy scores during recent hospitalization and suspect worsening weakness is multifactorial from deconditioning and mild dehydration. Suspect he will require SNF placement on discharge but appreciate therapy recommendations. 11/22: Blood pressure improved after IV albumin infusion 2. Decompensated cirrhosis with recurrent ascites secondary to NAFLD ? Recently underwent liver transplant evaluation at [facility] during hospitalization there last week, see HPI for further details. Was determined he was not a liver transplant candidate due to poor social support. Had paracentesis done at [facility] on 11/11 and 11/16 with 3 L and 5.2 L removed. No evidence of SBP. Mild abdominal distention with fluid wave noted on this admission but abdomen soft and nontender to palpation. No need for inpatient GI consultation or urgent paracentesis, plan for close outpatient follow-up. Notably was somewhat dry appearing with mild creatinine elevation on admit. Will hold home Lasix and spironolactone today and restart on 11/22. Will also hold home lactulose today and restart on 11/22. Continue home Xifaxan. 11/22: Lasix and spironolactone resumed. Resume lactulose. Patient still leaking fluid probably diuretics will decrease ascites and stop bleeding. 3. Extensive portal vein thrombosis ? Diagnosed on CT abdomen pelvis here on 11/09. Required transfer to [facility] for further management. They could not do much there. [facility] records prefers Lovenox therefore continued Continue therapeutic subcu Lovenox twice daily at this time. Of note, had Lyric also listed on his chart but per [facility] records it is clear he should be on Lovenox 4. Chronic iron deficiency anemia ? Hemoglobin 8.3 on admit. Most recent hemoglobin was 7.2 at [facility]. H&H 8.5/25%. Continue iron supplement. 5. Chronic staghorn calculi with hematuria ? Follows with Dr. Rascon. Has prior history of ureteral stent placement. Dr. Rascon noted during recent admission here that previously placed stents were in good position with no hydronephrosis noted. Given his severe comorbidities as noted above, holding off on surgical management for staghorn calculus at this time. Continue outpatient urology follow-up. 6. Type 2 diabetes mellitus ? Treat with sliding scale insulin with meals while inpatient. 7. ISABEL ? Creatinine 1.49 on admit, baseline around 1.1-1.2. Presumed mild prerenal ISABEL secondary to diarrhea and home indications. Will give 500 cc bolus of fluids on admit and hold home Lasix and spironolactone for today with plan to restart on 11/22. Monitor daily BMP and urine output. 11/22: BUN/creatinine 23/1.11. ISABEL resolved. Diuretic regimen. 8. Mild hyponatremia CKD stage II or possible GFR underestimation due to cirrhosis ? Sodium 132 on admit. Sodium 134. BUN/creatinine 28/1.49, better 28/1.32. Patient does not have muscle mass there might be underestimation of GFR. 9. Esophageal candidiasis ? Had EGD done on 11/14 at [facility] for liver transplant evaluation and was found to have esophageal candidiasis. Continue home fluconazole. 10. Recent C. difficile infection ? Completed p.o. vancomycin and Flagyl courses during hospitalization at [facility]. No need for further treatment at this time. 11. Class I obesity ? BMI 33 on admit. Complicates hospital course, care and prognosis. DVT prophylaxis: Not indicated, on therapeutic Lovenox CODE STATUS: Full code, verified Charges/Coding Visit Charges Inpatient E&M: 06955 Subs Hosp L2
--- NOTE | 2024-11-22 13:38 | CASEMGMT ---
Social Work- SW met with pt to discuss discharge planning. SW introduced self and role; pt agreeable to meeting with SW. Pt shared that his fiancee, Mary, whom lives with his sons out of town has been using his social security to buy groceries and pay rent for herself and his sons. Pt requests contact information to call [employer]. SW provided information. Pt reports that he lives with his ex , Sylvia, her , and Mary's brother. Pt is agreeable to SNF at discharge. A list of SNF providers including quality and resource use data and consistent with the patient?s preferred geographic region, medical needs, and insurance network were provided from the [employer] Guide. SW requests 3 choices for referrals. JEANNINE remains available to follow. JANETTE Valladares
[2024-11-22 14:00] VITALS: BP 118/79; PULSE 84; RESP 18; TEMP 36.1; O2SAT 100
[2024-11-22 16:58] LABS: Bedside Glucose 187 mg/dL (74-106)
[2024-11-22 22:55] VITALS: BP 104/60; PULSE 89; RESP 20; TEMP 36.5; O2SAT 100
[2024-11-22] MEDS: Atorvastatin Calcium 40 MG Tablet PO (23:24)
[2024-11-22 23:50] LABS: Bedside Glucose 228 mg/dL (74-106)
[2024-11-23 02:25] VITALS: BP 112/65; PULSE 89; RESP 20; TEMP 36.7; O2SAT 98
[2024-11-23 06:55] VITALS: BP 113/69; PULSE 95; RESP 20; TEMP 36.3; O2SAT 97
[2024-11-23] MEDS: Insulin Lispro 100 UNIT/ML INSULN.PEN SC ×4 (07:07→22:38)
[2024-11-23] MEDS: Sodium Bicarbonate 650 MG Tablet PO ×3 (07:07→22:38)
[2024-11-23] MEDS: Lactulose 20 GM/30 ML UDC 10 GM PO ×3 (07:07→22:37)
[2024-11-23 07:38] LABS: Bedside Glucose 182 mg/dL (74-106)
[2024-11-23 08:00] VITALS: BP 118/68; PULSE 96; RESP 18; TEMP 37.1; O2SAT 96
[2024-11-23 08:11] LABS: International Normalized Ratio 2.1
[2024-11-23] MEDS: Folic Acid 1 MG Tablet PO (09:02)
[2024-11-23] MEDS: Spironolactone 50 MG Tablet PO (09:03)
[2024-11-23] MEDS: Magnesium Chloride 64 MG Delay Rel.Tablet 128 MG PO (09:05)
[2024-11-23] MEDS: Calcium Carb/Vitamin D 1 TABLET Tablet PO (09:06)
[2024-11-23] MEDS: Pantoprazole Sodium 20 MG Tablet PO (09:07)
[2024-11-23] MEDS: Thiamine Hydrochloride 100 MG Tablet PO (09:07)
[2024-11-23] MEDS: rifAXIMin 550 MG Tablet PO ×2 (09:07→22:38)
[2024-11-23] MEDS: Midodrine HCl 5 MG Tablet 10 MG PO ×3 (09:09→16:33)
[2024-11-23] MEDS: Ceftriaxone 1 GM/50 ML BAG IV (09:10)
[2024-11-23] MEDS: Enoxaparin 120 MG/0.8 ML Syringe 105 MG SC ×2 (09:11→22:38)
[2024-11-23] MEDS: 0.9% Saline Lock 10 ML Syringe IV ×2 (09:11→22:37)
[2024-11-23 11:22] LABS: Bedside Glucose 155 mg/dL (74-106)
[2024-11-23] MEDS: oxyCODONE 5 MG Tablet PO ×2 (11:36→18:46)
--- NOTE | 2024-11-23 13:05 | CASEMGMT ---
Addendum entered by Ramonita Mir 11/23/24 15:18: Per hospitalist, xray to be ordered. Addendum entered by Ramonita Mir 11/23/24 15:14: Pt requesting a cortisone injection to his left hip due to hip/thigh pain. Pt reports he cannot move his hip. Updated hospitalist. Addendum entered by Ramonita Mir 11/23/24 15:06: DAYSI HUGHES into pt room, pt sitting up in chair. Discussed with patient therapy. Pt states repeatedly he cannot get out of a car, he is afraid to get on the toilet at home for fear of falling off. Discussed with patient outpt therapy, pt declined. Pt states he wants HH therapy. Made pt aware that he cannot have HH until he establishes with his PCP. He is aware of appt date and time and that it is on his dc instructions. Discussed safety of pt returning home, pt states there is nothing threatening at home. Made pt aware that this DAYSI HUGHES was referring to safety such as fall prevention. Pt states he still wants to return home. Pt states he cannot get out of a regular car and he will need transportation home as well. Pt reports he has a walker at home and an electric w/c that he has never used nor does he want to. He requests a BSC as he does not feel that he can ambulate the distance needed to get to the bathroom. Pt states he lives in a two story home with no steps to enter. He lives on the main floor and has family in the home to assist him. Pt denies further needs at this time. Addendum entered by Ramonita Mir 11/23/24 14:31: TC to [facility], made pt an appt for 11/30 at 9:30am. Placed on dc instructions. Original Note: TC to [facility], left message with receptionist clerk requesting first available appt. Requested returned call.
[2024-11-23 14:25] VITALS: BP 97/64; PULSE 110; RESP 18; TEMP 36.1; O2SAT 98
--- NOTE | 2024-11-23 15:25 | PN.HOSP_ITS ---
Reason for Visit Reason for Visit: Diagnoses Dehydration (11/21/24) Weakness (11/21/24) Objective Data Objective Data Vital Signs: Vital Signs Temp Pulse Resp BP Pulse Ox O2 Del Method 97 F L 110 H 18 97/64 98 Room Air 11/23/24 14:25 11/23/24 14:25 11/23/24 14:25 11/23/24 14:25 11/23/24 14:25 11/23/24 14:25 Oxygen Delivery Method Room Air Weight: 226 lb 6.636 oz Body Mass Index (BMI) 33.4 Intake & Output: Intake and Output for Last 24 Hours 11/21/24 11/22/24 11/23/24 23:59 23:59 23:59 Intake Total 1587.33 / 1587.33 990 / 990 450 / 450 Output Total 240 / 590 1250 / 1250 800 / 800 Balance 1347.33 / 997.33 -260 / -260 -350 / -350 Lab / Micro Data 11/21/24 09:35 11/22/24 05:58 Labs: Laboratory Results - last 24 hr 11/22/24 16:37: POC Glucose 187 H 11/22/24 23:20: POC Glucose 228 H 11/23/24 06:59: POC Glucose 182 H 11/23/24 07:35: PT 24.0 H, INR 2.1 11/23/24 11:00: POC Glucose 155 H Micro: Microbiology 11/21/24 02:41 Interface Orders Urine Culture - Final GNR lactose esl instructional assistant GPC Poss Enterococcus sp Mixed Gram Positive Organisms Physical Exam Narrative Ascites fluid leaking is less. Abdominal pain is also better. Patient complained that he has left hip and thigh pain. PT note reviewed. Patient had paracentesis in [facility] and is still leaking ascites fluid. No fever. Physical exam. General: alert, awake and oriented x 3 HEENT: Atraumatic, PERRLA, EOMI, Normocephalic Oral: No Gingival or Mucosal Lesions/ Ulcerations Neck: Supple, No JVD, Negative Carotid Bruits Chest wall/Lungs: Air entry diminished in bilateral lung bases. No crepitations or rhonchi Cardiovascular: Regular rhythm, no murmur Abdomen: Bowel sounds sluggish. Small umbilical hernia mild abdomen distended. Leaking ascites fluid from paracentesis site. Mild tenderness on left lower side probably from dressing. : No dysuria. No renal angle tenderness. No suprapubic tenderness. Extremities: No edema, Capillary Refill Less than 3 Seconds Skin: No rashes, No breakdown Musculoskeletal: No Tenderness to Palpation of Joints or Extremities. ROM restricted Neurological: No acute focal neurological deficit. Psych/Mental Status: Flat affect Assessment & Plan Assessment/Plan (1) Weakness: (2) Mild dehydration: PLAN: Plan Patient is a 59-year-old male who presented to [facility] ED on 11/21/2024 with worsening weakness. Patient had mild abdominal pain especially in the left leg, diarrhea last couple days, patient also has hematuria on and off, worse in the last 2 to 3 weeks. 1. Acute on chronic debility due to cirrhosis and other multiple comorbidities as mentioned above ? Admit under observation status to [facility]. PT/OT/case management consulted. Patient with borderline therapy scores during recent hospitalization and suspect worsening weakness is multifactorial from deconditioning and mild dehydration. Suspect he will require SNF placement on discharge but appreciate therapy recommendations. 11/22: Blood pressure improved after IV albumin infusion 2. Decompensated cirrhosis with recurrent ascites secondary to NAFLD ? Recently underwent liver transplant evaluation at [facility] during hospitalization there last week, see HPI for further details. Was determined he was not a liver transplant candidate due to poor social support. Had paracentesis done at [facility] on 11/11 and 11/16 with 3 L and 5.2 L removed. No evidence of SBP. Mild abdominal distention with fluid wave noted on this admission but abdomen soft and nontender to palpation. No need for inpatient GI consultation or urgent paracentesis, plan for close outpatient follow-up. Notably was somewhat dry appearing with mild creatinine elevation on admit. Will hold home Lasix and spironolactone today and restart on 11/22. Will also hold home lactulose today and restart on 11/22. Continue home Xifaxan. 11/22: Lasix and spironolactone resumed. Resume lactulose. Patient still leaking fluid probably diuretics will decrease ascites and stop bleeding. 11/23: Acetic fluid leaking is less. Continue on diuretics. 3. Extensive portal vein thrombosis ? Diagnosed on CT abdomen pelvis here on 11/09. Required transfer to [facility] for further management. They could not do much there. [facility] records prefers Lovenox therefore continued Continue therapeutic subcu Lovenox twice daily at this time. Of note, alejandro Gunter also listed on his chart but per [facility] records it is clear he should be on Lovenox 4. Chronic iron deficiency anemia ? Hemoglobin 8.3 on admit. Most recent hemoglobin was 7.2 at [facility]. H&H 8.5/25%. Continue iron supplement. 5. Chronic staghorn calculi with hematuria ? Follows with Dr. Rascon. Has prior history of ureteral stent placement. Dr. Rascon noted during recent admission here that previously placed stents were in good position with no hydronephrosis noted. Given his severe comorbidities as noted above, holding off on surgical management for staghorn calculus at this time. Continue outpatient urology follow-up. 6. Type 2 diabetes mellitus ? Treat with sliding scale insulin with meals while inpatient. 11/23: Glucose 158. 7. ISABEL ? Creatinine 1.49 on admit, baseline around 1.1-1.2. Presumed mild prerenal ISABEL secondary to diarrhea and home indications. Will give 500 cc bolus of fluids on admit and hold home Lasix and spironolactone for today with plan to restart on 11/22. Monitor daily BMP and urine output. 11/22: BUN/creatinine 23/1.11. ISABEL resolved. Diuretic regimen. 8. Mild hyponatremia CKD stage II or possible GFR underestimation due to cirrhosis ? Sodium 132 on admit. Sodium 134. BUN/creatinine 28/1.49, better 28/1.32. Patient does not have muscle mass there might be underestimation of GFR. 11/23: Sodium is better 136. Potassium 4.1. 9. Esophageal candidiasis ? Had EGD done on 11/14 at [facility] for liver transplant evaluation and was found to have esophageal candidiasis. Continue home fluconazole. 10. Recent C. difficile infection ? Completed p.o. vancomycin and Flagyl courses during hospitalization at [facility]. No need for further treatment at this time. 11. Class I obesity ? BMI 33 on admit. Complicates hospital course, care and prognosis. Patient [place] left hip pain and thigh pain. PT note reviewed and patient needs 1 person custody assistant in moving and walker. Difficulty in balance and walking. Left hip and pelvis x-ray ordered. Suspect degenerative arthritis. DVT prophylaxis: Not indicated, on therapeutic Lovenox CODE STATUS: Full code, verified Charges/Coding Visit Charges Inpatient E&M: 70638 Subs Hosp L2
--- NOTE | 2024-11-23 15:30 | CASEMGMT ---
Social Work Met with patient to follow up for discharge planning. Explored SNF choices patient has determined. Patient reports now desire to go home, and does not want to go to a SNF. Explored whether patient can get up and move without assist and what patient's usual form of mobility is at home. Patient states to have 2 walkers at home, and to feel can manage transfer and walking on own. This film writer agreed that SW product support technician CM will follow up later, to see how patient did after therapy. During conversation, patient focused on his long time partner, Mary, having control of patient's social security, not using the money for patient's needs but for the needs of others. Patient reports to feel safe in current situation, living with an patient's ex Sylvia, Sylvia's partner Jerald, and patient's [id number] Vikas. Patient reports intent to return back to this home with home health care. Educated patient of need to have a PCP before C can start, so there would be a delay in this service. Patient maintains desire to go home, and agreed for SW to call patient's roommates to verify address, as well as for CM team to work on PCP. Patient had no preferences, only that the provider is in [place]. This film writer called home number and spoke with Jerald who confirmed patient's address on demographic sheet as correct. Jerald also confirms patient is able to return to this home, and that Jerald helps patient with transportation. Collaboration with DAYSI HUGHES after initial discussion with patient. CM to work on PCP referral and follow up about home going. Update received from DAYSI HUGHES about meeting with patient today and potential barriers with home going. Met with patient to help patient call Social Security office, to see about requesting a new card for patient's SS check. Phone message states cannot request over the phone, only in person or via website. Patient reports had tried to get to the SS office but had a hard time getting in, and not sure if has an account online. During conversation, patient still talked about going home. This film writer broached again potential barriers for safety if goes home at this time, conversation with DAYSI HUGHES today, and how patient did with therapy. Patient focused on hip and upper leg pain, that feels unable to move his left leg, and wants a shot of cortisone. Discussed with DAYSI HUGHES about patients complaints, and CM will collaborate with hospitalist on patient's concern. After much discussion, patient stated, If I have to go will go to a SNF and gave this film writer choices from SNF list. Patient asked for the facilities which are in [place] - [facility] were circled on the list already. Patient reports willing to go for 3 weeks, but that the NF would have to help patient get transportation home. Patient aware it is the patient's choice, SW only pointing out safety concerns for patient as concerned about further injury if patient is not moving well nor has the support at home to help with transfers. Patient agreeable to SNF referral. Updated discharge director traffic and planning - first choice/[facility] and second choice/[facility]. Plan: Referrals pending at SNF. -DREW Upton
--- NOTE | 2024-11-23 15:49 | CASEMGMT ---
Addendum entered by India Platt 11/25/24 11:32: Both facilities notified that pt has decided to return home. India Platt DC Planning Asst. Addendum entered by India Platt 11/24/24 08:04: Both [facility] and [facility] have accepted. India Platt DC Planning Asst. Original Note: Discharge Planning Referral sent to [facility]. India Platt DC Planning Asst.
--- NOTE | 2024-11-23 16:09 | RAD_ITS ---
PROCEDURE: HIP, UNI W/ PELVIS 2-3 VIEWS 11/23/2024 REASON FOR EXAM: LEFT HIP AND THIGH PAIN TECHNIQUE: Two views of the left hip and an AP pelvic view were obtained COMPARISON: None FINDINGS: Bones: Normal mineralization is noted involving the bony pelvis and both hips. There are no fractures or dislocations. No osseous destructive process is seen. SI joints appear to be well preserved. Pubic symphysis is unremarkable. Joints: Joint spaces are well preserved. Soft tissues: No soft tissue masses or abnormalities are seen. Other: A left ureteral stent is noted. The distal tip is in the location of the bladder. RAD/HIP, UNI W/ Pelvis 2-3 Views IMPRESSION: Unremarkable AP pelvis and left hip study. Reading Location: [id number]
[2024-11-23 17:08] LABS: Bedside Glucose 213 mg/dL (74-106)
[2024-11-23 22:07] VITALS: BP 125/70; PULSE 95; RESP 16; TEMP 36.9; O2SAT 100
[2024-11-23] MEDS: Atorvastatin Calcium 40 MG Tablet PO (22:39)
[2024-11-23 23:18] LABS: Bedside Glucose 206 mg/dL (74-106)
[2024-11-24] VITALS (8 sets, daily range): BP systolic 112–121; BP diastolic 61–81; PULSE 89–97; RESP 16–18; TEMP 36.6–37.1; O2SAT 98–100
[2024-11-24 00:42] LABS: Bedside Glucose 186 mg/dL (74-106)
[2024-11-24] MEDS: Sodium Bicarbonate 650 MG Tablet PO ×3 (04:48→22:15)
[2024-11-24] MEDS: Lactulose 20 GM/30 ML UDC 10 GM PO ×3 (04:48→22:15)
[2024-11-24] MEDS: Insulin Lispro 100 UNIT/ML INSULN.PEN SC ×3 (06:35→17:35)
[2024-11-24 06:59] LABS: Absolute Lymphocyte Count 1.14 X10^3/uL (0.83-4.51); Absolute Neutrophil Count 3.4 X10^3/uL (2.0-7.7); Basophil# 0.02 X10^3/uL; Basophil% 0.4 % (0-1); Eosinophil# 0.32 X10^3/uL; Eosinophils% 5.7 % (0-5); Hematocrit 19.6 % (40-54); Hemoglobin 6.5 g/dL (13.0-16.5); Lymphocyte # 1.14 X10^3/ul (0.83-4.51); Lymphocyte % 20.4 % (19-41); Mean Corp Hgb Conc 33.2 g/dL (32-36); Mean Corpuscular Volume 93.3 fL (80-94); Mean Platelet Vol. 11.9 fl (6.2-12.0); Monocyte# 0.67 X10^3/uL; NRBC Flagged by Analyzer 0 % (0-5); Neutrophil # 3.41 X10^3/uL (2.7-7.7); POSITIVE COUNT YES; Platelet Count 88 K/mm3 (150-450); RBC Distribution Width CV 16.1 % (11.6-14.6); RBC Distribution Width SD 54.8 fl (35.1-43.9); White Blood Count 5.6 K/mm3 (4.4-11.0)
[2024-11-24 07:01] LABS: Bedside Glucose 184 mg/dL (74-106)
[2024-11-24 07:08] LABS: International Normalized Ratio 1.9; Prothrombin Time (Protime)PT. 22.6 SECONDS (11.7-14.9)
[2024-11-24 07:09] LABS: Differential Indicated SCAN CRITERIA MET
[2024-11-24 07:35] LABS: ALB/GLOB Ratio 1.2 RATIO (0.9-2.4); AST(SGOT) 72 U/L (<=37); Alanine Aminotransfer ALT/SGPT 45 U/L (<=46); Albumin, Serum 2.7 g/dL (3.5-5.0); Alkaline Phosphatase 176 U/L (40-129); Anion Gap 9 (5-15); BUN 11 mg/dL (4-19); BUN/Creat Ratio 12.2 RATIO (10-20); Calcium,Total 8.4 mg/dL (7.6-11.0); Carbon Dioxide 18.9 mmol/L (21.0-32.0); Chloride 107 mmol/L (98-108); Creatinine, Serum 0.86 mg/dL (0.70-1.20); EST Glomerular Filtration Rate 100 (>60); Estimated Creatinine Clearance 110.58 ml/min (50-250); Globulin 2.3 g/dL (2.2-4.2); Glucose 198 mg/dL (70-99); Potassium 4.1 mmol/L (3.3-5.1); Protein, Total 5.1 g/dL (5.9-8.4); Sodium Level 135 mmol/L (133-145); Total Bilirubin 0.97 mg/dL (0.00-1.30)
[2024-11-24 08:47] LABS: Differential Comment SCANNED; Platelet Estimate MOD DEC (ADEQ)
[2024-11-24] MEDS: Folic Acid 1 MG Tablet PO (09:00)
[2024-11-24] MEDS: Pantoprazole Sodium 20 MG Tablet PO (09:00)
[2024-11-24] MEDS: Ferrous Sulfate 325 MG Tablet PO (09:00)
[2024-11-24] MEDS: Calcium Carb/Vitamin D 1 TABLET Tablet PO (09:01)
[2024-11-24] MEDS: Magnesium Chloride 64 MG Delay Rel.Tablet 128 MG PO (09:01)
[2024-11-24] MEDS: Spironolactone 50 MG Tablet PO (09:02)
[2024-11-24] MEDS: Thiamine Hydrochloride 100 MG Tablet PO (09:03)
[2024-11-24] MEDS: rifAXIMin 550 MG Tablet PO ×2 (09:03→22:15)
[2024-11-24] MEDS: 0.9% Saline Lock 10 ML Syringe IV (09:11)
[2024-11-24] MEDS: Midodrine HCl 5 MG Tablet 10 MG PO ×3 (09:11→18:58)
[2024-11-24] MEDS: 0.9% Normal Saline (100mL Bag) 100 ML 15 ML IV (09:11)
[2024-11-24] MEDS: Menthol/Lanolin/Calamine/Znox 113 GM Tube 1 APPLIC TOPICAL ×2 (09:11→22:15)
[2024-11-24] MEDS: Ceftriaxone 1 GM/50 ML BAG IV (09:12)
--- NOTE | 2024-11-24 10:50 | WOUNDNOTE ---
Nursing states that patient has had frequent paracentesis and has a large amount of serous drainage from the left abdomen. the ABD pads have needed to be changed frequently. this nurse removed the ABD pads and was able to locate one area with a large amount of serous drainage. cleansed skin with soap and water. pat dry. applied a pediatric ostomy appliance to attempt to collect the drainage instead of having dressings and tape placed and removed frequently. pt tolerated well. will monitor.
[2024-11-24 11:29] LABS: Bedside Glucose 242 mg/dL (74-106)
--- NOTE | 2024-11-24 12:32 | CASEMGMT ---
Social Work- SW met with pt to follow up on conversations regarding d/c planning. Pt reports that he now would like to return home. Pt is open to seeing if he can complete care transfer prior to making final decision. SW confirmed that therapy will meet with pt today. SW remains available to follow. JANETTE Valladares
--- NOTE | 2024-11-24 14:27 | CASEMGMT ---
Addendum entered by Ramonita Mir 11/24/24 16:16: Noted pt refused therapy this date. Original Note: DAYSI HUGHES Readmission Note Previous Admission: 10/29/24-11/11/24 Diagnosis: sepsis, UTI, diarrhea, abd pain DC Disposition: TRF to F Current Admission: Admitted 11/21/24 Current Diagnosis: weakness Index admission: Pt presented with abdominal pain and diarrhea and was found to be positive for C. difficile colitis. Pt then developed worsening abdominal pain with distention. CT abdomen pelvis on 11/09 showed moderate ascites and interval progression of extensive thrombosis within the portal splenic confluence with not complete occlusion of the extrahepatic and intrahepatic portal veins. Pt was transferred to [facility] for further management due to his low hemoglobin with hematuria as it felt unsafe to anticoagulate at this facility. Pt dc'd from [facility] on 11/18 to home. Pt returned to [facility] ER on 11/21 with worsening weakness. Pt was admitted in observation and converted to inpatient. Pt has been inconsistent on his preference for dc plan. DAYSI HUGHES to follow.
--- NOTE | 2024-11-24 16:29 | PCM.PN.HOSP ---
Reason for Visit Reason for Visit: Diagnoses Dehydration (11/23/24) Weakness (11/23/24) Objective Data Objective Data Vital Signs: Vital Signs Temp Pulse Resp BP Pulse Ox O2 Del Method 98.7 F 94 18 113/61 99 Room Air 11/24/24 15:05 11/24/24 15:05 11/24/24 15:05 11/24/24 15:05 11/24/24 15:05 11/24/24 15:05 Oxygen Delivery Method Room Air Weight: 226 lb 6.636 oz Body Mass Index (BMI) 33.4 Intake & Output: Intake and Output for Last 24 Hours 11/22/24 11/23/24 11/24/24 23:59 23:59 23:59 Intake Total 990 / 990 450 / 450 1562.75 / 1562.75 Output Total 1250 / 1250 1050 / 1050 650 / 650 Balance -260 / -260 -600 / -600 912.75 / 912.75 Lab / Micro Data 11/24/24 06:20 11/24/24 06:20 Labs: Laboratory Results - last 24 hr 11/23/24 16:27: POC Glucose 213 H 11/23/24 22:14: POC Glucose 206 H 11/24/24 00:11: POC Glucose 186 H 11/24/24 06:20: WBC 5.6, RBC 2.10 L, Hgb 6.5 L, Hct 19.6 L, MCV 93.3, MCH 31.0, MCHC 33.2, RDW Std Deviation 54.8 H, RDW Coeff of Francis 16.1 H, Plt Count 88 L, MPV 11.9, Immature Gran % (Auto) 0.500, Neut % (Auto) 61.0, Lymph % (Auto) 20.4, Hood % (Auto) 12.0 H, Eos % (Auto) 5.7 H, Baso % (Auto) 0.4, Absolute Neuts (auto) 3.4, Absolute Lymphs (auto) 1.14, Nucleated RBC % 0, Differential Comment SCANNED, Platelet Estimate MOD DEC, PT 22.6 H, INR 1.9, Sodium 135, Potassium 4.1, Chloride 107, Carbon Dioxide 18.9 L, Anion Gap 9, BUN 11, Creatinine 0.86, Estim Creat Clear Calc 110.58, Est GFR (MDRD) Non-Af 100, BUN/Creatinine Ratio 12.2, Glucose 198 H, Calcium 8.4, Total Bilirubin 0.97, AST 72 H, ALT 45, Alkaline Phosphatase 176 H, Total Protein 5.1 L, Albumin 2.7 L, Globulin 2.3, Albumin/Globulin Ratio 1.2 11/24/24 06:34: POC Glucose 184 H 11/24/24 10:54: Blood Type O POSITIVE, Antibody Screen NEGATIVE, Crossmatch See Detail 11/24/24 10:59: POC Glucose 242 H Micro: Microbiology 11/21/24 02:41 Interface Orders Urine Culture - Final GNR lactose director of program management [facility] Poss Enterococcus sp Mixed Gram Positive Organisms Radiography Diagnostic Testing: Radiology Impression Hip/Pelvis X-Ray 11/23/24 16:09 IMPRESSION: Unremarkable AP pelvis and left hip study. Reading Location: [facility] Physical Exam Narrative Seen and examined. Small plastic dressing applied for drainage of acetic fluid. Hemoglobin dropped to 6.5 19.6. Abdominal pain is better. I think his abdominal pain was mainly due to heavy dressing of tape Patient had paracentesis in [facility] and is still leaking ascites fluid. No fever. Limited walking. Physical exam. General: alert, awake and oriented x 3 HEENT: Atraumatic, PERRLA, EOMI, Normocephalic Oral: No Gingival or Mucosal Lesions/ Ulcerations Neck: Supple, No JVD, Negative Carotid Bruits Chest wall/Lungs: Air entry diminished in bilateral lung bases. No crepitations or rhonchi Cardiovascular: Regular rhythm, no murmur Abdomen: Bowel sounds sluggish. Small umbilical hernia mild abdomen distended. Leaking ascites fluid, clear on drainage bag. Mild tenderness on left lower side quadrant but much improved : No dysuria. No renal angle tenderness. No suprapubic tenderness. Extremities: No edema, Capillary Refill Less than 3 Seconds Skin: No rashes, No breakdown Musculoskeletal: No Tenderness to Palpation of Joints or Extremities. ROM restricted Neurological: No acute focal neurological deficit. Psych/Mental Status: Flat affect Assessment & Plan Assessment/Plan (1) Weakness: (2) Mild dehydration: PLAN: Plan Patient is a 59-year-old male who presented to [facility] ED on 11/21/2024 with worsening weakness. Patient had mild abdominal pain especially in the left leg, diarrhea last couple days, patient also has hematuria on and off, worse in the last 2 to 3 weeks. 1. Acute on chronic debility due to cirrhosis and other multiple comorbidities as mentioned above ? Admit under observation status to [facility]. PT/OT/case management consulted. Patient with borderline therapy scores during recent hospitalization and suspect worsening weakness is multifactorial from deconditioning and mild dehydration. Suspect he will require SNF placement on discharge but appreciate therapy recommendations. 11/22: Blood pressure improved after IV albumin infusion 2. Decompensated cirrhosis with recurrent ascites secondary to NAFLD ? Recently underwent liver transplant evaluation at [facility] during hospitalization there last week, see HPI for further details. Was determined he was not a liver transplant candidate due to poor social support. Had paracentesis done at [facility] on 11/11 and 11/16 with 3 L and 5.2 L removed. No evidence of SBP. Mild abdominal distention with fluid wave noted on this admission but abdomen soft and nontender to palpation. No need for inpatient GI consultation or urgent paracentesis, plan for close outpatient follow-up. Notably was somewhat dry appearing with mild creatinine elevation on admit. Will hold home Lasix and spironolactone today and restart on 11/22. Will also hold home lactulose today and restart on 11/22. Continue home Xifaxan. 11/22: Lasix and spironolactone resumed. Resume lactulose. Patient still leaking fluid probably diuretics will decrease ascites and stop bleeding. 11/23: Acetic fluid leaking is less. Continue on diuretics. 11/24: Mildly elevated AST and alkaline phosphatase. Creatinine 0.86 INR 1.9. TB 0.97. Sodium 135. MELD sodium score 17 but patient was on Lovenox which might alter the PTT/INR 3. Extensive portal vein thrombosis ? Diagnosed on CT abdomen pelvis here on 11/09. Required transfer to [facility] for further management. They could not do much there. [facility] records prefers Lovenox therefore continued Continue therapeutic subcu Lovenox twice daily at this time. Of note, alejandro Gunter also listed on his chart but per [facility] records it is clear he should be on Lovenox 11/24: Lovenox discontinued. Explained about the complications and risk of Lovenox or other blood thinner involving its therapeutic benefit and indication for portal vein thrombosis. May be later factor Xa inhibitor added since patient not able to tolerate Lovenox. 4. Chronic iron deficiency anemia ? Hemoglobin 8.3 on admit. Most recent hemoglobin was 7.2 at [facility]. H&H 8.5/25%. Continue iron supplement. 11/24: Hemoglobin dropped to 6.5/19%. Platelet count 88,000. 1 unit of PRBC ordered. 5. Chronic staghorn calculi with hematuria ? Follows with Dr. Rascon. Has prior history of ureteral stent placement. Dr. Rascon noted during recent admission here that previously placed stents were in good position with no hydronephrosis noted. Given his severe comorbidities as noted above, holding off on surgical management for staghorn calculus at this time. Continue outpatient urology follow-up. 6. Type 2 diabetes mellitus ? Treat with sliding scale insulin with meals while inpatient. 11/23: Glucose 158. 7. ISABEL ? Creatinine 1.49 on admit, baseline around 1.1-1.2. Presumed mild prerenal ISABEL secondary to diarrhea and home indications. Will give 500 cc bolus of fluids on admit and hold home Lasix and spironolactone for today with plan to restart on 11/22. Monitor daily BMP and urine output. 11/22: BUN/creatinine 23/1.11. ISABEL resolved. Diuretic regimen. 11/24: Creatinine is normal 0.86. ISABEL resolved. 8. Mild hyponatremia CKD stage II or possible GFR underestimation due to cirrhosis ? Sodium 132 on admit. Sodium 134. BUN/creatinine 28/1.49, better 28/1.32. Patient does not have muscle mass there might be underestimation of GFR. 11/23: Sodium is better 136. Potassium 4.1. 9. Esophageal candidiasis ? Had EGD done on 11/14 at [facility] for liver transplant evaluation and was found to have esophageal candidiasis. Continue home fluconazole. 10. Recent C. difficile infection ? Completed p.o. vancomycin and Flagyl courses during hospitalization at [facility]. No need for further treatment at this time. 11. Class I obesity ? BMI 33 on admit. Complicates hospital course, care and prognosis. Patient [place] left hip pain and thigh pain. PT note reviewed and patient needs 1 person portfolio assistant in moving and walker. Difficulty in balance and walking. Left hip and pelvis x-ray ordered. Suspect degenerative arthritis. DVT prophylaxis: Not indicated, on therapeutic Lovenox CODE STATUS: Full code, verified Charges/Coding Visit Charges Inpatient E&M: 90768 Subs Hosp L2
[2024-11-24 17:15] LABS: Bedside Glucose 187 mg/dL (74-106)
[2024-11-24] MEDS: Atorvastatin Calcium 40 MG Tablet PO (22:15)
[2024-11-24] MEDS: oxyCODONE 5 MG Tablet PO (22:15)
[2024-11-24 23:38] LABS: Bedside Glucose 236 mg/dL (74-106)
[2024-11-25] MEDS: Insulin Lispro 100 UNIT/ML INSULN.PEN SC ×4 (01:50→17:31)
[2024-11-25 01:55] VITALS: BP 121/68; PULSE 94; RESP 15; TEMP 36.8; O2SAT 98
[2024-11-25 02:44] LABS: Bedside Glucose 209 mg/dL (74-106)
[2024-11-25 06:04] LABS: Absolute Lymphocyte Count 0.92 X10^3/uL (0.83-4.51); Absolute Neutrophil Count 3.6 X10^3/uL (2.0-7.7); Basophil# 0.02 X10^3/uL; Basophil% 0.4 % (0-1); Eosinophil# 0.23 X10^3/uL; Eosinophils% 4.2 % (0-5); Hematocrit 21.5 % (40-54); Lymphocyte # 0.92 X10^3/ul (0.83-4.51); Lymphocyte % 16.7 % (19-41); Mean Corp Hgb Conc 32.6 g/dL (32-36); Mean Corpuscular Hgb 30.3 pg (27.0-32.0); Mean Corpuscular Volume 93.1 fL (80-94); Mean Platelet Vol. 11.5 fl (6.2-12.0); Monocyte% 12.7 % (0-10); NRBC Flagged by Analyzer 0 % (0-5); Neutrophil # 3.62 X10^3/uL (2.7-7.7); Neutrophil % 65.6 % (47-70); POSITIVE COUNT YES; Platelet Count 82 K/mm3 (150-450); RBC Distribution Width CV 15.8 % (11.6-14.6); RBC Distribution Width SD 52.9 fl (35.1-43.9); Red Blood Count 2.31 M/mm3 (4.6-6.2); White Blood Count 5.5 K/mm3 (4.4-11.0)
[2024-11-25] MEDS: Lactulose 20 GM/30 ML UDC 10 GM PO ×2 (06:06→14:54)
[2024-11-25] MEDS: Sodium Bicarbonate 650 MG Tablet PO ×2 (06:06→14:54)
[2024-11-25 06:39] LABS: ALB/GLOB Ratio 1.2 RATIO (0.9-2.4); AST(SGOT) 60 U/L (<=37); Alanine Aminotransfer ALT/SGPT 41 U/L (<=46); Albumin, Serum 2.7 g/dL (3.5-5.0); Alkaline Phosphatase 168 U/L (40-129); Anion Gap 8 (5-15); BUN 8 mg/dL (4-19); BUN/Creat Ratio 9.2 RATIO (10-20); Calcium,Total 8.3 mg/dL (7.6-11.0); Carbon Dioxide 19.3 mmol/L (21.0-32.0); Chloride 108 mmol/L (98-108); Creatinine, Serum 0.86 mg/dL (0.70-1.20); EST Glomerular Filtration Rate 100 (>60); Estimated Creatinine Clearance 110.58 ml/min (50-250); Globulin 2.2 g/dL (2.2-4.2); Glucose 179 mg/dL (70-99); Potassium 4.2 mmol/L (3.3-5.1); Protein, Total 4.9 g/dL (5.9-8.4); Sodium Level 135 mmol/L (133-145); Total Bilirubin 1.07 mg/dL (0.00-1.30)
[2024-11-25 06:46] LABS: Bedside Glucose 166 mg/dL (74-106)
[2024-11-25 07:42] VITALS: O2SAT 95
[2024-11-25 08:00] VITALS: BP 121/72; PULSE 99; RESP 18; TEMP 37.1; O2SAT 98
[2024-11-25] MEDS: Ondansetron 4 MG/2 ML Vial IV (08:35)
[2024-11-25] MEDS: 0.9% Saline Lock 10 ML Syringe IV (08:35)
[2024-11-25] MEDS: Calcium Carb/Vitamin D 1 TABLET Tablet PO (08:45)
[2024-11-25] MEDS: Pantoprazole Sodium 20 MG Tablet PO (08:45)
[2024-11-25] MEDS: Folic Acid 1 MG Tablet PO (08:46)
[2024-11-25] MEDS: rifAXIMin 550 MG Tablet PO (08:46)
[2024-11-25] MEDS: Spironolactone 50 MG Tablet PO (08:46)
[2024-11-25] MEDS: Magnesium Chloride 64 MG Delay Rel.Tablet 128 MG PO (08:46)
[2024-11-25] MEDS: Thiamine Hydrochloride 100 MG Tablet PO (08:46)
[2024-11-25] MEDS: Midodrine HCl 5 MG Tablet 10 MG PO ×3 (08:50→17:25)
--- NOTE | 2024-11-25 10:34 | DCINST_ITS ---
Discharge Instructions Diet Discharge Diet: 1800 Calorie Control Diet, 8 Cup Fluid Restriction and 2000 mg Sodium Diet DC O2, CPAP, BIPAP needs Home O2 Discharge instructions: No Follow Up Care Test Results: Test results from this visit will be discussed in further detail at your follow- up appointment, if applicable. Discharge Plan Admission Admit Date/Time: 11/23/24 16:19 Primary Reason for Your Visit: Decompensated cirrhosis, suspected SBP. Severe anemia. PV thrombus Attending Provider: Anurag Irene Primary Care Provider: Care Physician,No Primary Consulting Providers: Jae Ash Instructions Additional Instructions / Restrictions: Follow-up of, transplant family law legal assistant, [facility] in 2 weeks Discharge Orders/Prescriptions Prescriptions: New levofloxacin 500 mg tablet 500 mg PO DAILY 2 Days Qty: 2 0RF midodrine 10 mg tablet 10 mg PO TID 30 Days Qty: 90 0RF Rx Instructions: do not give last dose of day after 6PM or within 4 hrs of bedtime ascorbic acid (vitamin C) 500 mg tablet 500 mg PO BID Qty: 60 2RF Continued lidocaine 5 % Adhesive Patch,Medicated 3 patch topical DAILY Qty: 90 0RF Protocol: *Topical Application Instructions APPLICATION INSTRUCTIONS: to affected region Rx Instructions: Apply to low back daily for pain Xifaxan 550 mg Tablet 550 mg PO BID Qty: 60 0RF insulin lispro [Humalog KwikPen Insulin] 100 unit/mL Insulin Pen See Protocol subcut ACHS Qty: 0 0RF Protocol: 4. Sliding Scale Insulin High-Med Dosing Condition: 150-199 mg/dl = 2 units Condition: 200-259 mg/dl = 4 units Condition: 260-324 mg/dl = 6 units Condition: 325-374 mg/dl = 8 units Condition: 375-409 mg/dl = 10 units Condition: 410-449 mg/dl = 11 units Condition: Greater than 449 call physician Protocol Text: Suggested for: - Patients on Total Daily Insulin Dose of 56-80 units - Patient who are known to be insulin resistant or septic HIGH MEDIUM DOSING ALGORITHM folic acid 1 mg tablet 1 mg PO DAILY calcium carbonate-vitamin D3 [Oyster Shell Calcium-Vit D3] 500 mg-5 mcg (200 unit) tablet 1 tab PO DAILY acetaminophen 500 mg Tablet 1,000 mg PO Q8 PRN (Reason: fever or pain) cyclobenzaprine 10 mg tablet 10 mg PO QHS atorvastatin 40 mg tablet 40 mg PO DAILY ferrous sulfate [FeroSul] 325 mg (65 mg iron) tablet 325 mg PO QODAY furosemide 20 mg tablet 40 mg PO DAILY magnesium oxide 400 mg (241.3 mg magnesium) tablet 400 mg PO DAILY sodium bicarbonate 650 mg tablet 650 mg PO BID metformin 500 mg tablet extended release 24 hr 500 mg PO QPM spironolactone 50 mg tablet 50 mg PO DAILY thiamine HCl (vitamin B1) 100 mg tablet 100 mg PO DAILY pantoprazole 20 mg tablet,delayed release (DR/EC) 20 mg PO DAILY zinc sulfate 50 mg zinc (220 mg) tablet 50 mg PO DAILY Changed lactulose [Constulose] 10 gram/15 mL solution 15 ml PO TID 30 Days Qty: 0 0RF Rx Instructions: Goal to have 2 soft bowel movements per day Held enoxaparin 120 mg/0.8 mL syringe 105 mg subcut Q12.TCU Hold Instructions: Hemoglobin is too low. May be consider after 1 week if hemoglobin and platelet count permits. Follow-up with PCP Discontinued ibuprofen 800 mg tablet 800 mg PO TID PRN PRN (Reason: fever or pain) fluconazole 200 mg tablet 200 mg PO DAILY Eliquis 5 mg tablet 5 mg PO BID Referrals / Follow Up: Care Physician,No Primary [Primary Care Provider] - Josy Elias NP-C [Non-Staff] - 11/30/24 9:30 am Disposition Disposition (needs filled in before D/C Order can be placed): Home Health Service
[2024-11-25] MEDS: oxyCODONE 5 MG Tablet PO (11:16)
[2024-11-25] MEDS: Ceftriaxone 1 GM/50 ML BAG IV (11:16)
--- NOTE | 2024-11-25 11:25 | CASEMGMT ---
RN CM into pt room, pt sitting up in chair. Pt states he needs a w/c to take him home. Discussed we could set up a w/c van for home dc. Pt provided with BGM rx and placed in pt folder per request. Pt is aware that the physician was willing to order BSC and will request this to be delivered to pt home. Provided pt with a verbal local in network list of DME providers, pt chose [facility]. Referral sent to [facility] via [facility] at this time. Pt is aware of PCP appt and he is aware after that, he may be able to get home therapy if the doctor orders it. Pt denies any further homegoing needs at this time. Discussed with nurse a good strip picker time, requested escrow secretary to arrange transportation at 2pm or later.
[2024-11-25 11:45] LABS: Bedside Glucose 196 mg/dL (74-106)
--- NOTE | 2024-11-25 11:46 | CASEMGMT ---
Social Work Per RNCM, pt choosing to return home. DC virtual office assistant updated and to cancel referrals to [facility]. JANETTE Roque
--- NOTE | 2024-11-25 12:07 | PCM.DC.SUM ---
Providers Date of Admission: 11/23/24 Date of Discharge: 11/25/24 Primary Care Physician: No Primary Care Phys Reason For Visit: WEAKNESS Diagnosis Discharge Diagnosis (1) Weakness: Status: Acute Code(s): R53.1 - Weakness (2) Mild dehydration: Status: Acute Code(s): E86.0 - Dehydration Plan Patient is a 59-year-old male who presented to [facility] ED on 11/21/2024 with worsening weakness. Patient had mild abdominal pain especially in the left leg, diarrhea last couple days, patient also has hematuria on and off, worse in the last 2 to 3 weeks. 1. Acute on chronic debility due to cirrhosis and other multiple comorbidities as mentioned above ? Admit under observation status to [facility]. PT/OT/case management consulted. Patient with borderline therapy scores during recent hospitalization and suspect worsening weakness is multifactorial from deconditioning and mild dehydration. Suspect he will require SNF placement on discharge but appreciate therapy recommendations. 11/22: Blood pressure improved after IV albumin infusion 2. Decompensated cirrhosis with recurrent ascites secondary to NAFLD ? Recently underwent liver transplant evaluation at [facility] during hospitalization there last week, see HPI for further details. Was determined he was not a liver transplant candidate due to poor social support. Had paracentesis done at [facility] on 11/11 and 11/16 with 3 L and 5.2 L removed. No evidence of SBP. Mild abdominal distention with fluid wave noted on this admission but abdomen soft and nontender to palpation. No need for inpatient GI consultation or urgent paracentesis, plan for close outpatient follow-up. Notably was somewhat dry appearing with mild creatinine elevation on admit. Will hold home Lasix and spironolactone today and restart on 11/22. Will also hold home lactulose today and restart on 11/22. Continue home Xifaxan. 11/22: Lasix and spironolactone resumed. Resume lactulose. Patient still leaking fluid probably diuretics will decrease ascites and stop bleeding. 11/23: Acetic fluid leaking is less. Continue on diuretics. 11/24: Mildly elevated AST and alkaline phosphatase. Creatinine 0.86 INR 1.9. TB 0.97. Sodium 135. MELD sodium score 17 but patient was on Lovenox which might alter the PTT/INR 11/25: ALT normal AST 60. Alkaline phosphatase elevated. Total bilirubin normal. 3. Extensive portal vein thrombosis ? Diagnosed on CT abdomen pelvis here on 11/09. Required transfer to [facility] for further management. They could not do much there. [facility] records prefers Lovenox therefore continued Continue therapeutic subcu Lovenox twice daily at this time. Of note, alejandro Gunter also listed on his chart but per [facility] records it is clear he should be on Lovenox 11/24: Lovenox discontinued. Explained about the complications and risk of Lovenox or other blood thinner involving its therapeutic benefit and indication for portal vein thrombosis. May be later factor Xa inhibitor added since patient not able to tolerate Lovenox. 11/25: Hemoglobin low as mentioned below. 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 4. Chronic iron deficiency anemia ? Hemoglobin 8.3 on admit. Most recent hemoglobin was 7.2 at [facility]. H&H 8.5/25%. Continue iron supplement. 11/24: Hemoglobin dropped to 6.5/19%. Platelet count 88,000. 1 unit of PRBC ordered. 11/25: Hemoglobin increased to 7.0/21.5%. At this point of time, he is not candidate for anticoagulation but might be considered in future. Continue iron supplement and ascorbic acid. 5. Chronic staghorn calculi with hematuria ? Follows with Dr. Rascon. Has prior history of ureteral stent placement. Dr. Rascon noted during recent admission here that previously placed stents were in good position with no hydronephrosis noted. Given his severe comorbidities as noted above, holding off on surgical management for staghorn calculus at this time. Continue outpatient urology follow-up. 6. Type 2 diabetes mellitus ? Treat with sliding scale insulin with meals while inpatient. 11/23: Glucose 158. 7. ISABEL ? Creatinine 1.49 on admit, baseline around 1.1-1.2. Presumed mild prerenal ISABEL secondary to diarrhea and home indications. Will give 500 cc bolus of fluids on admit and hold home Lasix and spironolactone for today with plan to restart on 11/22. Monitor daily BMP and urine output. 11/22: BUN/creatinine 23/1.11. ISABEL resolved. Diuretic regimen. 11/24: Creatinine is normal 0.86. ISABEL resolved. 8. Mild hyponatremia CKD stage II or possible GFR underestimation due to cirrhosis ? Sodium 132 on admit. Sodium 134. BUN/creatinine 28/1.49, better 28/1.32. Patient does not have muscle mass there might be underestimation of GFR. 11/23: Sodium is better 136. Potassium 4.1. 9. Esophageal candidiasis ? Had EGD done on 11/14 at [facility] for liver transplant evaluation and was found to have esophageal candidiasis. Continue home fluconazole. 10. Recent C. difficile infection ? Completed p.o. vancomycin and Flagyl courses during hospitalization at [facility]. No need for further treatment at this time. 11. Class I obesity ? BMI 33 on admit. Complicates hospital course, care and prognosis. Patient [place] left hip pain and thigh pain. PT note reviewed and patient needs 1 person fiscal assistant in moving and walker. Difficulty in balance and walking. Left hip and pelvis x-ray ordered. Suspect degenerative arthritis. DVT prophylaxis: Not indicated, on therapeutic Lovenox CODE STATUS: Full code, verified The patient is confined to patient is unable to access the bathroom safely and requires a 3 in 1 commode therefore he needs commode. Discharge medication reconciliation done. Discharge follow-up instructions completed. Discharge process discussed with the patient and all questions were answered to patient's satisfaction. Follow with PCP in 1 to 2 weeks Total time spent, exact 35 minutes on discharge meds reconciliation, examination, coordination of care with nurses and ancillary staff, review of imaging and blood test and discussion with the patient on follow-up instructions. Medications at Discharge Home Medications lidocaine 5 % topical patch 3 patch topical DAILY #90 ea 09/02/24 rifaximin 550 mg tablet (Xifaxan) 550 mg PO BID #60 tabs 09/02/24 insulin lispro 100 unit/mL subcutaneous pen (Humalog KwikPen (U-100) Insulin) See Protocol subcut ACHS #0 mL 09/14/24 acetaminophen 500 mg tablet 1,000 mg PO Q8 PRN fever or pain 10/28/24 calcium 500 mg (as carbonate)-vitamin D3 5 mcg (200 unit) tablet (Oyster Shell Calcium-Vitamin D3) 1 tab PO DAILY 10/28/24 folic acid 1 mg tablet 1 mg PO DAILY 10/28/24 atorvastatin 40 mg tablet 40 mg PO DAILY 11/21/24 cyclobenzaprine 10 mg tablet 10 mg PO QHS cramps 11/21/24 enoxaparin 120 mg/0.8 mL subcutaneous syringe 105 mg subcut Q12.TCU 11/21/24 Held on 11/25/24. Instructions: Hemoglobin is too low. May be consider after 1 week if hemoglobin and platelet count permits. Follow-up with PCP ferrous sulfate 325 mg (65 mg iron) tablet (FeroSul) 325 mg PO QODAY 11/21/24 furosemide 20 mg tablet 40 mg PO DAILY 11/21/24 magnesium oxide 400 mg (241.3 mg magnesium) tablet 400 mg PO DAILY 11/21/24 metformin 500 mg tablet,extended release 24 hr 500 mg PO QPM 11/21/24 pantoprazole 20 mg tablet,delayed release 20 mg PO DAILY 11/21/24 sodium bicarbonate 650 mg tablet 650 mg PO BID 11/21/24 spironolactone 50 mg tablet 50 mg PO DAILY 11/21/24 thiamine HCl (vitamin B1) 100 mg tablet 100 mg PO DAILY 11/21/24 zinc sulfate 50 mg zinc (220 mg) tablet 50 mg PO DAILY 11/21/24 ascorbic acid (vitamin C) 500 mg tablet 500 mg PO BID #60 tabs 11/25/24 lactulose 10 gram/15 mL oral solution (Constulose) 15 ml PO TID 30 days #0 mL 11/25/24 levofloxacin 500 mg tablet 500 mg PO DAILY 2 days #2 tabs 11/25/24 midodrine 10 mg tablet 10 mg PO TID 1 month #90 tabs 11/25/24 Physical Exam Narrative Seen and examined. Small plastic bag dressing applied for drainage of acetic fluid, less than 50 mL. Hemoglobin increased to 7 mg. Abdominal pain is better. I think his abdominal pain was mainly due to heavy dressing of tape No fever. Limited walking. Physical exam. General: alert, awake and oriented x 3 HEENT: Atraumatic, PERRLA, EOMI, Normocephalic Oral: No Gingival or Mucosal Lesions/ Ulcerations Neck: Supple, No JVD, Negative Carotid Bruits Chest wall/Lungs: Air entry diminished in bilateral lung bases. No crepitations or rhonchi Cardiovascular: Regular rhythm, no murmur Abdomen: Bowel sounds sluggish. Small umbilical hernia mild abdomen distended. Leaking ascites fluid, clear on drainage bag. No significant tenderness. : No dysuria. No renal angle tenderness. No suprapubic tenderness. Extremities: No edema, Capillary Refill Less than 3 Seconds Skin: No rashes, No breakdown Musculoskeletal: No Tenderness to Palpation of Joints or Extremities. ROM restricted Neurological: No acute focal neurological deficit. Psych/Mental Status: Flat affect Weight / BMI Weight Weight: 226 lb 6.636 oz Body Mass Index (BMI) 33.4 ABG / Lab / Microbiology Data 11/25/24 05:09 11/25/24 05:09 Laboratory: Laboratory Results - last 24 hr 11/24/24 10:54: Blood Type O POSITIVE, Antibody Screen NEGATIVE, Crossmatch See Detail 11/24/24 16:53: POC Glucose 187 H 11/24/24 22:42: POC Glucose 236 H 11/25/24 01:49: POC Glucose 209 H 11/25/24 05:09: WBC 5.5, RBC 2.31 L, Hgb 7.0 L, Hct 21.5 L, MCV 93.1, MCH 30.3, MCHC 32.6, RDW Std Deviation 52.9 H, RDW Coeff of Francis 15.8 H, Plt Count 82 L, MPV 11.5, Immature Gran % (Auto) 0.400, Neut % (Auto) 65.6, Lymph % (Auto) 16.7 L, [place] % (Auto) 12.7 H, Eos % (Auto) 4.2, Baso % (Auto) 0.4, Absolute Neuts (auto) 3.6, Absolute Lymphs (auto) 0.92, Nucleated RBC % 0, Sodium 135, Potassium 4.2, Chloride 108, Carbon Dioxide 19.3 L, Anion Gap 8, BUN 8, Creatinine 0.86, Estim Creat Clear Calc 110.58, Est GFR (MDRD) Non-Af 100, BUN/Creatinine Ratio 9.2 L, Glucose 179 H, Calcium 8.3, Total Bilirubin 1.07, AST 60 H, ALT 41, Alkaline Phosphatase 168 H, Total Protein 4.9 L, Albumin 2.7 L, Globulin 2.2, Albumin/Globulin Ratio 1.2 11/25/24 06:10: POC Glucose 166 H 11/25/24 11:08: POC Glucose 196 H Microbiology: Microbiology 11/21/24 02:41 Interface Orders 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 * Patients 75 years or YOUNGER should receive HIGH intensity statin dose unless contraindicated. You will be required to document reason for non-treatment if statin daily dose does not meet guidelines. HIGH DOSE STATIN THERAPY DAILY Atorvastatin > than or = to 40 mg Rosuvastatin > than or = to 20 mg Amlodipine + Atorvastatin > than or = to 2.5/40 mg Ezetimibe + Simvastatin 10/80 mg Simvastatin 80mg Discharge Plan Admission Admit Date/Time: 11/23/24 16:19 Primary Reason for Your Visit: Decompensated cirrhosis, suspected SBP. Severe anemia. 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, [facility] in 2 weeks Discharge Orders/Prescriptions Prescriptions: New levofloxacin 500 mg tablet 500 mg PO DAILY 2 Days Qty: 2 0RF midodrine 10 mg tablet 10 mg PO TID 30 Days Qty: 90 0RF Rx Instructions: do not give last dose of day after 6PM or within 4 hrs of bedtime ascorbic acid (vitamin C) 500 mg tablet 500 mg PO BID Qty: 60 2RF Continued lidocaine 5 % Adhesive Patch,Medicated 3 patch topical DAILY Qty: 90 0RF Protocol: *Topical Application Instructions APPLICATION INSTRUCTIONS: to affected region Rx Instructions: Apply to low back daily for pain Xifaxan 550 mg Tablet 550 mg PO BID Qty: 60 0RF insulin lispro [Humalog KwikPen Insulin] 100 unit/mL Insulin Pen See Protocol subcut ACHS Qty: 0 0RF Protocol: 4. Sliding Scale Insulin High-Med Dosing Condition: 150-199 mg/dl = 2 units Condition: 200-259 mg/dl = 4 units Condition: 260-324 mg/dl = 6 units Condition: 325-374 mg/dl = 8 units Condition: 375-409 mg/dl = 10 units Condition: 410-449 mg/dl = 11 units Condition: Greater than 449 call physician Protocol Text: Suggested for: - Patients on Total Daily Insulin Dose of 56-80 units - Patient who are known to be insulin resistant or septic HIGH MEDIUM DOSING ALGORITHM folic acid 1 mg tablet 1 mg PO DAILY calcium carbonate-vitamin D3 [Oyster Shell Calcium-Vit D3] 500 mg-5 mcg (200 unit) tablet 1 tab PO DAILY acetaminophen 500 mg Tablet 1,000 mg PO Q8 PRN (Reason: fever or pain) cyclobenzaprine 10 mg tablet 10 mg PO QHS atorvastatin 40 mg tablet 40 mg PO DAILY ferrous sulfate [FeroSul] 325 mg (65 mg iron) tablet 325 mg PO QODAY furosemide 20 mg tablet 40 mg PO DAILY magnesium oxide 400 mg (241.3 mg magnesium) tablet 400 mg PO DAILY sodium bicarbonate 650 mg tablet 650 mg PO BID metformin 500 mg tablet extended release 24 hr 500 mg PO QPM spironolactone 50 mg tablet 50 mg PO DAILY thiamine HCl (vitamin B1) 100 mg tablet 100 mg PO DAILY pantoprazole 20 mg tablet,delayed release (DR/EC) 20 mg PO DAILY zinc sulfate 50 mg zinc (220 mg) tablet 50 mg PO DAILY Changed lactulose [Constulose] 10 gram/15 mL solution 15 ml PO TID 30 Days Qty: 0 0RF Rx Instructions: Goal to have 2 soft bowel movements per day Held enoxaparin 120 mg/0.8 mL syringe 105 mg subcut Q12.TCU Hold Instructions: Hemoglobin is too low. May be consider after 1 week if hemoglobin and platelet count permits. Follow-up with PCP Discontinued ibuprofen 800 mg tablet 800 mg PO TID PRN PRN (Reason: fever or pain) fluconazole 200 mg tablet 200 mg PO DAILY Eliquis 5 mg tablet 5 mg PO BID Referrals / Follow Up: Care Physician,No Primary [Primary Care Provider] - Josy Elias NP-C [Non-Staff] - 11/30/24 9:30 am Disposition Disposition (needs filled in before D/C Order can be placed): Home Health Service Charges/Coding Visit Charges Inpatient E&M: 78790 Disch Hosp >30min
--- NOTE | 2024-11-25 14:08 | PHA.DC_ITS ---
Pharmacy [facility] has performed discharge medication reconciliation and counseling for this patient. 1. ASCORBIC ACID 500MG PO BID 2. LEVOFLOXACIN 500MG PO DAILY 3. MIDODRINE 10MG PO TIDCM The patient's discharge medication list was reviewed for discrepancies and discrepancies were resolved. The patient was counseled on the following discharge medications and changes in medications for homegoing were reviewed. The Reason for Use, instructions for use, and potential side effects were reviewed for all new medications. The patient's questions regarding all of their medications were answered. The patient was able to verbally demonstrate an understanding of their discharge medications. Patient counseled by pharmacy informatics specialist, Irving. Medications at Discharge Home Medications lidocaine 5 % topical patch 3 patch topical DAILY #90 ea 09/02/24 rifaximin 550 mg tablet (Xifaxan) 550 mg PO BID #60 tabs 09/02/24 insulin lispro 100 unit/mL subcutaneous pen (Humalog KwikPen (U-100) Insulin) See Protocol subcut ACHS #0 mL 09/14/24 acetaminophen 500 mg tablet 1,000 mg PO Q8 PRN fever or pain 10/28/24 calcium 500 mg (as carbonate)-vitamin D3 5 mcg (200 unit) tablet (Oyster Shell Calcium-Vitamin D3) 1 tab PO DAILY 10/28/24 folic acid 1 mg tablet 1 mg PO DAILY 10/28/24 atorvastatin 40 mg tablet 40 mg PO DAILY 11/21/24 cyclobenzaprine 10 mg tablet 10 mg PO QHS cramps 11/21/24 enoxaparin 120 mg/0.8 mL subcutaneous syringe 105 mg subcut Q12.TCU 11/21/24 Held on 11/25/24. Instructions: Hemoglobin is too low. May be consider after 1 week if hemoglobin and platelet count permits. Follow-up with PCP ferrous sulfate 325 mg (65 mg iron) tablet (FeroSul) 325 mg PO QODAY 11/21/24 furosemide 20 mg tablet 40 mg PO DAILY 11/21/24 magnesium oxide 400 mg (241.3 mg magnesium) tablet 400 mg PO DAILY 11/21/24 metformin 500 mg tablet,extended release 24 hr 500 mg PO QPM 11/21/24 pantoprazole 20 mg tablet,delayed release 20 mg PO DAILY 11/21/24 sodium bicarbonate 650 mg tablet 650 mg PO BID 11/21/24 spironolactone 50 mg tablet 50 mg PO DAILY 11/21/24 thiamine HCl (vitamin B1) 100 mg tablet 100 mg PO DAILY 11/21/24 zinc sulfate 50 mg zinc (220 mg) tablet 50 mg PO DAILY 11/21/24 ascorbic acid (vitamin C) 500 mg tablet 500 mg PO BID #60 tabs 11/25/24 lactulose 10 gram/15 mL oral solution (Constulose) 15 ml PO TID 30 days #0 mL 11/25/24 levofloxacin 500 mg tablet 500 mg PO DAILY 2 days #2 tabs 11/25/24 midodrine 10 mg tablet 10 mg PO TID 1 month #90 tabs 11/25/24
[2024-11-25 15:00] VITALS: BP 117/75; PULSE 90; RESP 18; TEMP 36.9; O2SAT 98
[2024-11-25 16:36] LABS: Bedside Glucose 222 mg/dL (74-106)
[2024-11-25 18:31] VITALS: BP 122/80; PULSE 97; RESP 18; TEMP 36.8; O2SAT 98
== END 2024-11-25 18:40 | disposition home or self-care (01) | DRG 422 ==
LOC: ED 04:16 → MS3 04:27
PROVIDERS: Admitting Provider Hospitalist; Emergency Provider Emergency Medicine; Visit Provider Internal Medicine
DX: E86.0 Dehydration (principal); I81 Portal vein thrombosis; B37.81 Candidal esophagitis; R18.8 Other ascites; E11.22 Type 2 diabetes mellitus with diabetic chronic kidney disease; K74.60 Unspecified cirrhosis of liver; D50.9 Iron deficiency anemia, unspecified; I12.9 Hypertensive chronic kidney disease with stage 1 through stage 4 chronic kidney disease, or unspecified chronic kidney disease; E66.811 Obesity, class 1; N17.9 Acute kidney failure, unspecified; K76.0 Fatty (change of) liver, not elsewhere classified; E87.1 Hypo-osmolality and hyponatremia; N18.2 Chronic kidney disease, stage 2 (mild); E78.5 Hyperlipidemia, unspecified; Z79.4 Long term (current) use of insulin; R19.7 Diarrhea, unspecified; M79.652 Pain in left thigh; M16.12 Unilateral primary osteoarthritis, left hip; R53.1 Weakness; R31.0 Gross hematuria; N20.0 Calculus of kidney; G89.29 Other chronic pain; R26.89 Other abnormalities of gait and mobility; Z68.33 Body mass index [BMI] 33.0-33.9, adult; Z79.1 Long term (current) use of non-steroidal anti-inflammatories (NSAID); Z79.01 Long term (current) use of anticoagulants; Z79.84 Long term (current) use of oral hypoglycemic drugs; Z79.899 Other long term (current) drug therapy; Z87.891 Personal history of nicotine dependence; Z86.19 Personal history of other infectious and parasitic diseases
CPT/HCPCS: 36415; 71045; 73502; 80053; 81001; 82140; 82248; 82962; 83605; 85025; 85027; 85610; 86850; 86900; 86901; 87086; 87088; 97110; 97161; 97166; 97530; 97535; 99285; P9016; P9047; A4216; J2405

== ENCOUNTER 2024-11-28 12:24 | Observation (INO) | payer MEDICAID, SELFPAY ==
[2024-11-28] VITALS (8 sets, daily range): BP systolic 98–121; BP diastolic 52–105; PULSE 60–72; RESP 16–26; TEMP 36.2–36.7; O2SAT 95–100; BMI 32.3; BMI 31.7
--- NOTE | 2024-11-28 13:04 | CT_ITS ---
PROCEDURE: ABDOMEN/PELVIS W IV CONT ONLY 11/28/2024 REASON FOR EXAM: LEFT FLANK PAIN TECHNIQUE: Abdomen and pelvis CT with intravenous contrast. Coronal and Sagittal reconstruction series were provided. PATIENT PREPARATION: Per protocol ORAL CONTRAST TYPE: None. AMOUNT: mL CONTRAST: Omnipaque 350 VOLUME: 100 mL Not Provided Gauge IV One or more dose reduction techniques were used (e.g., Automated exposure control, adjustment of the mA and/or kV according to patient size, use of iterative reconstruction technique. COMPARISON: CT abdomen and pelvis 11/09/2024 FINDINGS: Lung bases: Mild cardiomegaly. Severe coronary artery calcifications. Liver: Cirrhotic liver morphology. No focal lesion. Gallbladder: No ductal dilation. Cholelithiasis. Spleen: Normal size. Pancreas: Normal size without evidence of mass surrounding inflammation or ductal dilation. Adrenals: Unremarkable Kidneys: Stable left nephroureteral stent. No suspicious mass or abnormal enhancement. No calculi or hydronephrosis. Bladder: Unremarkable. Reproductive Organs: No pelvic mass. Bowel: Stomach is unremarkable. No bowel dilation. Diffuse small-bowel and colonic wall thickening with submucosal hyperemia, similar to the prior examination. Findings likely secondary to underdistention. Appendix: The appendix is not identified. There is no inflammatory process identified in the right lower quadrant to suggest appendicitis. Lymph nodes: No suspicious adenopathy Vasculature: The abdominal aorta and IVC are normal. Moderate diffuse atherosclerotic calcification of the abdominal aorta and iliac arteries. Redemonstration diffuse thrombosis involving the portal and splenic veins, as well as the intrahepatic portal veins slightly improved compared with the prior examination from 11/09/2024. There is thrombosis extending to the roof of the mesentery. Extensive portosystemic collaterals are noted. Peritoneum / Retroperitoneum: Small abdominopelvic ascites, improved compared with prior. No pneumoperitoneum. Bones: Multilevel degenerative changes of the lumbar spine. Multilevel compression deformities of the thoracic spine, most prominent at T12, unchanged. Soft tissue: Diffuse subcutaneous edema. Moderate amount of fluid along the left lateral pelvic wall. Fat and fluid containing umbilical hernia and [id number]-right fluid containing inguinal hernias Findings appear similar to the prior examination. CT/Abdomen/Pelvis W IV Cont ONLY IMPRESSION: 1. No acute findings in the abdomen and pelvis. 2. Cirrhotic liver morphology without focal lesion. 3. Interval improvement ascites, since prior. 4. Slight interval improvement degree of thrombosis involving the portal and sp lenic veins as well as the mesenteric roof. 5. Sequela of portal hypertension. Reading Location: [facility]
--- NOTE | 2024-11-28 13:05 | EX.ED.DYSGE1 ---
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 Rascon), anemia, chronic Lovenox therapy due to portal vein thrombosis, C. difficile colitis and abdominal ascites presenting with worsening left flank pain. Patient states he has had pain for weeks but it has been worsening. He has not taken anything for the pain. States the pain is worse with certain positions and movement. He states sometimes when he tries to stand up it radiates down his left leg. Denies associate numbness or weakness of the legs. Is generally weak. Notes that he lives at home with his ex-, her and his [id number]. States he does not like being in a correction because they make me do things that I cannot do. Denies any associated fever or chills. Denies any nausea or vomiting. Notes he is chronic stool incontinence denies any acute change in this. Continues to have intermittent hematuria and states his urine is still red. Thinks he still has a urinary tract infection. Chart review shows that patient was recently admitted to the hospital from 11/24/2023 for acute blood loss anemia secondary to hematuria and generalized weakness. He was evaluated by PT OT and had borderline therapy scores. Is undergone liver transplant evaluation [facility] but is not a candidate due to poor social support. On 11/16 had paracentesis with 5.2 L removed. Has had ongoing issues with ascitic fluid leaking from the left side of the abdomen. Was diagnosed on 11/09 with extensive portal vein thrombosis and is supposed be on Lovenox but is currently on hold secondary to the anemia. Received 1 unit of packed red blood cells on 11/24. Chart review also shows that patient has ongoing complaints of this left flank pain. [facility] Medical History Diarrhea Sepsis Acidosis, lactic Acute hypotension Acute UTI Chronic hypotension Obesity (BMI 30-39.9) Chronic back pain ISABEL (acute kidney injury) Hypotension Hepatic encephalopathy Hyperbilirubinemia 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) HLD (hyperlipidemia) HTN (hypertension) Thrombocytopenia Chronic anemia Former tobacco use Diabetes mellitus, type 2 ABBY on CPAP Back pain Home Medications ?Medication ?Instructions ?Recorded ?Last Taken ?Type rifaximin 550 mg tablet (Xifaxan) 550 mg PO BID #60 tabs 09/02/24 11/28/24 Rx insulin lispro 100 unit/mL See Protocol subcut ACHS #0 mL 09/14/24 Unknown Rx subcutaneous pen (Humalog KwikPen (U-100) Insulin) acetaminophen 500 mg tablet 1,000 mg PO Q8 PRN fever or pain 10/28/24 Unknown History calcium 500 mg (as 1 tab PO DAILY 10/28/24 11/28/24 History carbonate)-vitamin D3 5 mcg (200 unit) tablet (Oyster Shell Calcium-Vitamin D3) folic acid 1 mg tablet 1 mg PO DAILY 10/28/24 11/28/24 History atorvastatin 40 mg tablet 40 mg PO DAILY 11/21/24 11/27/24 History cyclobenzaprine 10 mg tablet 10 mg PO QHS cramps 11/21/24 11/27/24 History enoxaparin 120 mg/0.8 mL 105 mg subcut Q12.TCU prevemtative 11/21/24 Unknown History subcutaneous syringe Held on 11/25/24. Instructions: Hemoglobin is too low. May be consider after 1 week if hemoglobin and platelet count permits. Follow-up with PCP ferrous sulfate 325 mg (65 mg 325 mg PO QODAY supplement 11/21/24 Unknown History iron) tablet (FeroSul) furosemide 20 mg tablet 40 mg PO DAILY 11/21/24 11/28/24 History magnesium oxide 400 mg (241.3 mg 400 mg PO DAILY 11/21/24 11/28/24 History magnesium) tablet metformin 500 mg tablet,extended 500 mg PO QPM 11/21/24 11/27/24 History release 24 hr pantoprazole 20 mg tablet,delayed 20 mg PO DAILY 11/21/24 11/28/24 History release sodium bicarbonate 650 mg tablet 650 mg PO BID 11/21/24 11/28/24 History spironolactone 50 mg tablet 50 mg PO DAILY 11/21/24 11/28/24 History thiamine HCl (vitamin B1) 100 mg 100 mg PO DAILY supplement 11/21/24 Unknown History tablet zinc sulfate 50 mg zinc (220 mg) 50 mg PO DAILY 11/21/24 11/28/24 History tablet ascorbic acid (vitamin C) 500 mg 500 mg PO BID #60 tabs 11/25/24 11/28/24 Rx tablet levofloxacin 500 mg tablet 500 mg PO DAILY 2 days #2 tabs 11/25/24 11/28/24 Rx midodrine 10 mg tablet 10 mg PO TID 1 month #90 tabs 11/25/24 Unknown Rx lactulose 10 gram/15 mL oral 15 ml PO TID PRN constipation 11/28/24 Unknown History solution (Constulose) Allergy/AdvReac Type Severity Reaction Status Date / Time No Known Allergies Allergy Verified 11/28/24 12:31 Family History Mother Heart disease Hypertension CAD (coronary artery disease) Myocardial infarction Father Hypertension Heart disease Heart failure Surgical History History of tonsillectomy and adenoidectomy Social History household members: significant other Smoking Status: Former smoker how long ago did patient quit smoking: Quit ~ 3-4 months prior (fall 2023), smoked 1.5 ppd since teen until quit. alcohol intake: never substance use type: does not use ROS ROS ED Constitutional Constitutional ED: Denies chills or fever(s) Cardiovascular Cardiovascular: Denies chest pain Respiratory/Chest Respiratory/Chest: Denies cough or dyspnea Gastrointestinal Gastrointestinal: Reports abdominal pain and other Details: left sided ; Denies diarrhea or vomiting Genitourinary Genitourinary ED: Reports hematuria; Denies dysuria Musculoskeletal Musculoskeletal: Reports back pain Integumentary Reports other Details: Continue drainage from paracentesis site on the right side of the abdomen (bag in place to collect it) ; Denies rash Neurologic Neurologic: Reports weakness; Denies headache(s) or paresthesias Hematologic/Lymphatic Hematologic/Lymphatic: Reports easy bleeding and easy bruising EXAM Physical Exam Const Vital Signs: 11/28/24 12:25 11/28/24 14:21 11/28/24 16:14 Temperature 98.1 F 98.1 F Temperature Source Oral Oral Pulse Rate 64 60 66 Respiratory Rate 16 26 H 16 Blood Pressure 102/66 98/60 121/105 H Blood Pressure Mean 78 72 110 Pulse Ox 100 98 100 Oxygen Delivery Method Room Air Room Air Room Air Positive well developed Constitutional Narrative: Chronically ill-appearing General Appearance ED: well developed HEENT Reports dry mucous membranes Mouth ED: Yes dry mucous membranes Mouth: dry mucous membranes Eyes PERRL General Eye ED: Negative for scleral icterus Neck no JVD Chest Wall inspection of chest normal and palpation of chest normal Resp normal respiratory effort and clear to auscultation bilaterally Cardio regular rate and regular rhythm GI GI Narrative: No fluid wave. Protuberant abdomen. Diffuse tenderness to palpation especially on the left side. Pain seems to be equal with superficial and deep palpation. Abdomen is not peritoneal. Patient has fluid collection bag on his left abdominal wall that is collecting clear ascitic fluid. There is a small amount in the bag. He has induration with redness and warmth of the left abdominal wall more pronounced than the left flank/lower quadrant. Auscultation: normoactive bowel sounds Palpation: soft; Negative for guarding or mass Back/Spine Back/Spine Narrative: Left paraspinal tenderness to palpation. Positive contralateral straight leg test. No pain with range of motion of the left lower extremity. Thoracic Spine / Upper Back: Negative for thoracic spinal tenderness Lumbar Spine / Lower Back: Negative for lumbar spinal tenderness Extremity normal to inspection General Extremety ED: Yes edema General Extremity: edema Neuro oriented x3 Neuro Narrative: No focal deficits however patient is generally weak. Alert and oriented x 3 at this time. Sensorium / Orientation: alert Motor Exam: general weakness Psych mental status grossly normal Skin Skin Narrative: Erythema and induration as well as associated warmth to the left abdominal wall MDM MDM MDM Narrative Medical decision making narrative: Patient is evaluated for 3 weeks of worsening left-sided flank pain. It is worse with movement. To be a sciatic component to it as it goes down his left leg however on exam he also has induration, warmth and tenderness of the abdominal wall concerning for possible abdominal wall cellulitis. Patient is quite sickly man with multiple comorbidities including anemia, liver cirrhosis and staghorn calculus with a stent in place. Differential includes infected stent, abdominal wall cellulitis, symptomatic anemia, sepsis, ISABEL, hepatic encephalopathy, displacement of ureteral stents. Patient is a mild leukocytosis 11.7 which is uptrending compared to his recent admission. His hemoglobin is actually improved and is now 8.4. He has chronic thrombocytopenia which is stable at 118. Lactate is significantly elevated at 3.5. Due to cirrhosis it could be falsely elevated however I suspect there is also component of dehydration and possible secondary to endorgan damage. His creatinine is 1.09 which is mildly uptrending compared to last week where it was 0.86. He has a mild chronic transaminitis. Ammonia is uptrending at 68 (was 17.9 on). Urinalysis does show positive nitrates, 50-100 red blood cells and 50-100 white blood cells with 1+ bacteria. Urine culture will be sent. Prior urine culture grew out mixed gram-positive organisms and was contaminated. Case discussed with hospitalist. I have concern for abdominal cellulitis causing his pain today. I do think patient would benefit from admission especially given his worsening status and weakness. He was given 1 dose of fentanyl for pain control in the emergency room. Due to patient's multiple comorbidities and poor prognosis overall is admitted to the PCU. Blood pressure does respond to IV fluids in the emergency room. Lab Data Attestation: I reviewed the patient's lab results. Labs: Laboratory Results - last 24 hr 11/28/24 11/28/24 11/28/24 13:22 13:46 16:04 WBC 11.7 H RBC 2.77 L Hgb 8.4 L Hct 26.0 L MCV 93.9 MCH 30.3 MCHC 32.3 RDW Std Deviation 56.3 H RDW Coeff of Francis 16.5 H Plt Count 118 L MPV 12.4 H Immature Gran % (Auto) 0.300 Neut % (Auto) 79.1 H Lymph % (Auto) 9.5 L [place] % (Auto) 9.1 Eos % (Auto) 1.8 Baso % (Auto) 0.2 Absolute Neuts (auto) 9.2 H Absolute Lymphs (auto) 1.11 Nucleated RBC % 0 Sodium 137 Potassium 3.8 Chloride 107 Carbon Dioxide 17.7 L Anion Gap 12 BUN 12 Creatinine 1.09 Estim Creat Clear Calc 85.91 Est GFR (MDRD) Non-Af 79 BUN/Creatinine Ratio 11.4 Glucose 157 H Lactic Acid 3.5 H* Calcium 8.3 Total Bilirubin 1.22 Direct Bilirubin 0.72 H AST 39 H ALT 31 Alkaline Phosphatase 189 H Ammonia 68.4 H Total Protein 5.4 L Albumin 2.8 L Globulin 2.6 Lipase 54 Urine Color Rocio Urine Clarity Cloudy Urine pH 6.5 Ur Specific [place] 1.010 Urine Protein 100 H Urine Glucose (UA) Normal Urine Ketones 5 H Urine Occult Blood 250 H Urine Nitrite Positive H Urine Bilirubin Negative Urine Urobilinogen Normal Ur Leukocyte Esterase 500 H Urine RBC 50-100 SEEN Urine WBC 50-100 SEEN Ur Squamous Epith Cells 0-5 SEEN Urine Bacteria 1+ Urine Mucus 0 SEEN Radiography Diagnostic Testing: Clinical Impression(s) from Imaging Studies Abdomen/Pelvis CT 11/28/24 13:04 IMPRESSION: 1. No acute findings in the abdomen and pelvis. 2. Cirrhotic liver morphology without focal lesion. 3. Interval improvement ascites, since prior. 4. Slight interval improvement degree of thrombosis involving the portal and splenic veins as well as the mesenteric roof. 5. Sequela of portal hypertension. Reading Location: [facility] Management Discussion w/another healthcare provider: Hospitalist Discharge Plan Dx/Rx/DC Orders Clinical Impression: Abdominal wall cellulitis, UTI (urinary tract infection), Weakness, Chronic abdominal pain, Chronic back pain, Mild dehydration, Hepatic cirrhosis Disposition Disposition: Acute Care Hospital [facility] Discharge Date/Time: 11/28/24 17:25
[2024-11-28] MEDS: fentaNYL 100 MCG/2 ML Ampul 50 MCG IV (13:36)
[2024-11-28 13:41] LABS: Absolute Lymphocyte Count 1.11 X10^3/uL (0.83-4.51); Absolute Neutrophil Count 9.2 X10^3/uL (2.0-7.7); Basophil# 0.02 X10^3/uL; Basophil% 0.2 % (0-1); Eosinophil# 0.21 X10^3/uL; Eosinophils% 1.8 % (0-5); Hemoglobin 8.4 g/dL (13.0-16.5); Lymphocyte # 1.11 X10^3/ul (0.83-4.51); Lymphocyte % 9.5 % (19-41); Mean Corp Hgb Conc 32.3 g/dL (32-36); Mean Corpuscular Hgb 30.3 pg (27.0-32.0); Mean Corpuscular Volume 93.9 fL (80-94); Mean Platelet Vol. 12.4 fl (6.2-12.0); Monocyte# 1.06 X10^3/uL; Monocyte% 9.1 % (0-10); NRBC Flagged by Analyzer 0 % (0-5); Neutrophil # 9.22 X10^3/uL (2.7-7.7); Neutrophil % 79.1 % (47-70); Platelet Count 118 K/mm3 (150-450); RBC Distribution Width CV 16.5 % (11.6-14.6); RBC Distribution Width SD 56.3 fl (35.1-43.9); Red Blood Count 2.77 M/mm3 (4.6-6.2); White Blood Count 11.7 K/mm3 (4.4-11.0)
[2024-11-28 14:02] LABS: AST(SGOT) 39 U/L (<=37); Alanine Aminotransfer ALT/SGPT 31 U/L (<=46); Albumin, Serum 2.8 g/dL (3.5-5.0); Alkaline Phosphatase 189 U/L (40-129); Ammonia 68.4 umol/L (16-60); Anion Gap 12 (5-15); BUN 12 mg/dL (4-19); BUN/Creat Ratio 11.4 RATIO (10-20); Bilirubin, Direct 0.72 mg/dL (0.00-0.30); Calcium,Total 8.3 mg/dL (7.6-11.0); Carbon Dioxide 17.7 mmol/L (21.0-32.0); Chloride 107 mmol/L (98-108); Creatinine, Serum 1.09 mg/dL (0.70-1.20); EST Glomerular Filtration Rate 79 (>60); Estimated Creatinine Clearance 85.91 ml/min (50-250); Globulin 2.6 g/dL (2.2-4.2); Glucose 157 mg/dL (70-99); Lipase 54 U/L (13-75); Potassium 3.8 mmol/L (3.3-5.1); Protein, Total 5.4 g/dL (5.9-8.4); Sodium Level 137 mmol/L (133-145); Total Bilirubin 1.22 mg/dL (0.00-1.30)
[2024-11-28 14:17] LABS: Lactic Acid 3.5 mmol/L (0.0-2.0)
[2024-11-28] MEDS: 0.9% Normal Saline (1000mL) 1,000 ML 999 ML IV (14:43)
[2024-11-28 16:07] LABS: Mucous, Urine 0 SEEN /hpf (<or=2+)
[2024-11-28 16:08] LABS: Color, Urine Amber (Yellow); Glucose, Dipstick Normal (Normal); Ketone-Dipstick 5 mg/dl (Negative); Leukocyte Esterase-Dipstick 500 /ul (Negative); Nitrite-Dipstick Positive (Negative); Occult Blood-Urine 250 /ul (Negative); Protein-Dipstick 100 mg/dl (Negative); Urine Bilirubin Dipstick Negative (Negative); Urine Clarity Cloudy (Clear); Urine Urobilinogen Normal (Normal); Urine pH 6.5 (5.0 - 8.0)
[2024-11-28 16:14] LABS: Bacteria 1+ /hpf (None Seen); Red Blood Cells-Urine 50-100 SEEN /hpf (0-5); Squamous Epithelial Cells - UA 0-5 SEEN /hpf (0-5); White Blood Cells 50-100 SEEN /hpf (0-5)
[2024-11-28] MEDS: Vancomycin HCl 1,500 MG in 0.9% Normal Saline (500mL Bag) 500 ML 250 MG IV (16:51)
--- NOTE | 2024-11-28 16:51 | PCM.HP.STD ---
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 Rascon, portal vein thrombosis with Lovenox on hold, recent C. difficile colitis and abdominal ascites who presented [facility] ED 11/28/2024 with worsening sided pain. Has had it for weeks but it is progressively been worsening. Specifically worse with certain positions and movements. Also feels generally weak. Does continue to have intermittent hematuria with red urine. Patient was recently admitted to the hospital 11/24/2023 for acute blood loss anemia secondary to hematuria and generalized weakness and had been hospitalized earlier in the month and diagnosed with extensive portal vein thrombosis 11/09 and required transfer to a tertiary facility due to patient's complex nature with both hematuria and extensive portal thrombosis. His Lovenox has been on hold secondary to his anemia and he most recently received 1 unit packed red blood cells on 11/24. In the ED patient afebrile, heart rate 64 with a blood pressure 102/66, respiratory rate 16 with a pulse ox of 100% on room air. Patient's white blood cell count noted to be 11.7 with hemoglobin of 8.4, platelet count 118, Ammonia 68.4 with a direct bili of 0.72, AST of 39 and alk phos 189. Lactic acid found to be 3.5. CT abdomen pelvis with contrast showed no acute findings, cirrhotic liver morphology, interval improvement of ascites, slight interval improvement of patient's portal and splenic and mesenteric root thrombosis in noted sequelae of portal hypertension. UA suggestive of UTI, exam consistent with left-sided abdominal wall cellulitis, patient given antibiotics and fluids, blood pressure in creased, patient stable and hospitalist contacted for admission for his failure to thrive and multiple medical comorbidities with acute UTI and cellulitis. Patient evaluated bedside, reports that his main complaint is some left-sided hip and leg pain over the past couple of weeks. He reports he fell several weeks ago because he was not using his walker and he has had some pain since then, sometimes he will have it at all when he is laying certain ways but it is especially worse with ambulation, reports the pain is mostly lateral hip and then down to his foot but the pain is aching in nature denies any sharp pain, reports some chronic lower back pain that occasionally he will get some pain in his lower back but this is not a primary complaint, patient denies any urinary retention or incontinence, has chronic diarrhea with difficulty with holding a stool which is not new. Patient denies any weakness in the leg or numbness and only reports the aching feeling. Patient denies any abdominal pain at this time, does report hematuria without dysuria per patient. Denies any chest pain or actual shortness of breath though sometimes if he is hurting he feels that may make him feel short of breath. No chest pain or cough. Patient denies any fevers or chills. 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) HLD (hyperlipidemia) HTN (hypertension) Thrombocytopenia Chronic anemia Former tobacco use Diabetes mellitus, type 2 ABBY on CPAP Back pain Home Medications ?Medication ?Instructions ?Recorded ?Last Taken ?Type rifaximin 550 mg tablet (Xifaxan) 550 mg PO BID #60 tabs 09/02/24 11/28/24 Rx insulin lispro 100 unit/mL See Protocol subcut ACHS #0 mL 09/14/24 Unknown Rx subcutaneous pen (Humalog KwikPen (U-100) Insulin) acetaminophen 500 mg tablet 1,000 mg PO Q8 PRN fever or pain 10/28/24 Unknown History calcium 500 mg (as 1 tab PO DAILY 10/28/24 11/28/24 History carbonate)-vitamin D3 5 mcg (200 unit) tablet (Oyster Shell Calcium-Vitamin D3) folic acid 1 mg tablet 1 mg PO DAILY 10/28/24 11/28/24 History atorvastatin 40 mg tablet 40 mg PO DAILY 11/21/24 11/27/24 History cyclobenzaprine 10 mg tablet 10 mg PO QHS cramps 11/21/24 11/27/24 History enoxaparin 120 mg/0.8 mL 105 mg subcut Q12.TCU 11/21/24 Unknown History subcutaneous syringe Held on 11/25/24. Instructions: Hemoglobin is too low. May be consider after 1 week if hemoglobin and platelet count permits. Follow-up with PCP ferrous sulfate 325 mg (65 mg 325 mg PO QODAY 11/21/24 Unknown History iron) tablet (FeroSul) furosemide 20 mg tablet 40 mg PO DAILY 11/21/24 11/28/24 History magnesium oxide 400 mg (241.3 mg 400 mg PO DAILY 11/21/24 11/28/24 History magnesium) tablet metformin 500 mg tablet,extended 500 mg PO QPM 11/21/24 11/27/24 History release 24 hr pantoprazole 20 mg tablet,delayed 20 mg PO DAILY 11/21/24 11/28/24 History release sodium bicarbonate 650 mg tablet 650 mg PO BID 11/21/24 11/28/24 History spironolactone 50 mg tablet 50 mg PO DAILY 11/21/24 11/28/24 History thiamine HCl (vitamin B1) 100 mg 100 mg PO DAILY 11/21/24 Unknown History tablet zinc sulfate 50 mg zinc (220 mg) 50 mg PO DAILY 11/21/24 11/28/24 History tablet ascorbic acid (vitamin C) 500 mg 500 mg PO BID #60 tabs 11/25/24 11/28/24 Rx tablet levofloxacin 500 mg tablet 500 mg PO DAILY 2 days #2 tabs 11/25/24 11/28/24 Rx midodrine 10 mg tablet 10 mg PO TID 1 month #90 tabs 11/25/24 Unknown Rx lactulose 10 gram/15 mL oral 15 ml PO TID PRN constipation 11/28/24 Unknown History solution (Constulose) Allergy/AdvReac Type Severity Reaction Status Date / Time No Known Allergies Allergy Verified 11/28/24 12:31 Family History Mother Heart disease Hypertension CAD (coronary artery disease) Myocardial infarction Father Hypertension Heart disease Heart failure Surgical History History of tonsillectomy and adenoidectomy Social History household members: significant other Smoking Status: Former smoker how long ago did patient quit smoking: Quit ~ 3-4 months prior (fall 2023), smoked 1.5 ppd since teen until quit. alcohol intake: never substance use type: does not use ROS ROS Narrative General: Denies fever/chills HENT: Denies headache, denies stuffy nose, denies sore throat EYES: Denies changes in vision Resp: Denies cough, denies shortness of breath, sometimes if he is in a lot of pain he will almost get the feeling of being short of breath but does not have shortness of breath and of itself Cardiac: Denies chest pain GI: Denies abdominal pain, chronic diarrhea sometimes with stool incontinence unchanged, denies nausea/vomiting today : Is having hematuria Extremity: Denies any focal swelling in lower extremities and does note he has a little bit of swelling in both which is not necessarily new MSK: Some generalized weakness with no focal weakness Neuro: Denies any numbness/tingling Heme: Denies any bleeding or bruising, does have some chronic drainage from a paracentesis site Skin: Denies rashes Psychiatric: No complaints voiced Vital Signs Vital Signs Vital Signs: 11/28/24 12:25 11/28/24 14:21 11/28/24 16:14 Temperature 98.1 F 98.1 F Temperature Source Oral Oral Pulse Rate 64 60 66 Respiratory Rate 16 26 H 16 Blood Pressure 102/66 98/60 121/105 H Blood Pressure Mean 78 72 110 Pulse Ox 100 98 100 Oxygen Delivery Method Room Air Room Air Room Air Weight Weight: 99.5 kg Body Mass Index (BMI) 32.3 Physical Exam Narrative General: Alert, oriented, resting comfortably on his side HEENT: Atraumatic, normocephalic Eyes: Anicteric, normal conjunctiva, extraocular movements grossly intact Neck: Supple Respiratory: Clear to auscultation bilaterally, normal respiratory effort Cardiovascular: Regular rate and rhythm GI: Distended but soft, tender around skin changes on left side of abdomen without rebound, guarding, rigidity Extremities: Trace bilateral lower extremity edema equal bilaterally Musculoskeletal: Moving all extremities, has various tender points, felt some of the aching when I palpated foot but none over calf or bauer but then again felt some aching when I palpated thigh and hip, had some aching as well on palpation of back but this was not specific to the spine and also was paraspinal Neuro: No overt focal neurological deficits Skin: Does have some skin thickening and color change on left side of abdomen with some warmth and indurated appearance Psych: Cooperative Results Lab / Micro Data 11/28/24 13:22 11/28/24 13:22 Labs: Laboratory Results - last 24 hr 11/28/24 13:22: WBC 11.7 H, RBC 2.77 L, Hgb 8.4 L, Hct 26.0 L, MCV 93.9, MCH 30.3, MCHC 32.3, RDW Std Deviation 56.3 H, RDW Coeff of Francis 16.5 H, Plt Count 118 L, MPV 12.4 H, Immature Gran % (Auto) 0.300, Neut % (Auto) 79.1 H, Lymph % (Auto) 9.5 L, Nash % (Auto) 9.1, Eos % (Auto) 1.8, Baso % (Auto) 0.2, Absolute Neuts (auto) 9.2 H, Absolute Lymphs (auto) 1.11, Nucleated RBC % 0, Sodium 137, Potassium 3.8, Chloride 107, Carbon Dioxide 17.7 L, Anion Gap 12, BUN 12, Creatinine 1.09, Estim Creat Clear Calc 85.91, Est GFR (MDRD) Non-Af 79, BUN/Creatinine Ratio 11.4, Glucose 157 H, Calcium 8.3, Total Bilirubin 1.22, Direct Bilirubin 0.72 H, AST 39 H, ALT 31, Alkaline Phosphatase 189 H, Ammonia 68.4 H, Total Protein 5.4 L, Albumin 2.8 L, Globulin 2.6, Lipase 54 11/28/24 13:46: Lactic Acid 3.5 H* 11/28/24 16:04: Urine Color Rocio, Urine Clarity Cloudy, Urine pH 6.5, Ur Specific [place] 1.010, Urine Protein 100 H, Urine Glucose (UA) Normal, Urine Ketones 5 H, Urine Occult Blood 250 H, Urine Nitrite Positive H, Urine Bilirubin Negative, Urine Urobilinogen Normal, Ur Leukocyte Esterase 500 H, Urine RBC 50-100 SEEN, Urine WBC 50-100 SEEN, Ur Squamous Epith Cells 0-5 SEEN, Urine Bacteria 1+, Urine Mucus 0 SEEN Imaging Radiology Impression Abdomen/Pelvis CT 11/28/24 13:04 IMPRESSION: 1. No acute findings in the abdomen and pelvis. 2. Cirrhotic liver morphology without focal lesion. 3. Interval improvement ascites, since prior. 4. Slight interval improvement degree of thrombosis involving the portal and splenic veins as well as the mesenteric roof. 5. Sequela of portal hypertension. Reading Location: [facility] Assessment & Plan Assessment/Plan (1) UTI (urinary tract infection): (2) Abdominal wall cellulitis: PLAN: Plan # Left-sided abdominal wall cellulitis -Patient has abdominal wall cellulitis and suspected urinary tract infection as below, given the cellulitis and the patient has grown staph epi and blood in urine before we will treat with vancomycin at this time and de-escalate as culture and sensitivity data become available or as otherwise indicated -Additionally will prophylactically give patient oral Vanco due to very recent C. difficile and his chronic diarrhea - Order probiotic as well # Suspected urinary tract infection - UA is suspicious for UTI - Urine culture sent - Has previously grown staph epi and 2 out of 2 blood cultures and urine simultaneously, will treat with vancomycin as above pending culture and sensitivity data #Left sided pain -Patient with left-sided hip and leg pain that is aching in nature, very difficult to get a good handle on his patient has various tender points along hip and leg but it spares certain areas, additionally had some tenderness on his lower back but it was the same across the whole lower back including paraspinal muscles, patient appears to have somewhat diffuse tenderness as palpating various other areas on his body that did not have pain complaints also listed a similar sensation in pain response -Patient denies sharp pain, no urinary retention or incontinence, denies any weakness or numbness, no alarm symptoms at this time -PT/OT -Symptomatic management at this time, patient tolerated fentanyl very well in the ED without excessive sedation or hypotension so we will continue this as well as oral options for patient while physical therapy eval and further progress are pending - Case management consult - On the CT of the abdomen pelvis there are multilevel degenerative changes lumbar spine with multiple compression deformities in thoracic spine most prominent at T12 however these are unchanged - Could consider MRI if symptoms do not improve with conservative measures # Liver 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 -Patient was evaluated recently at [facility] for [facility] but given poor social support he was not felt to be a candidate for transplant at this time -Continue lactulose and rifaximin -Patient required IV fluids on presentation, will hold diuretics - Patient has chronic leaking from a paracentesis site and has a bag over it to collect any residual leaking - Patient denies any alcohol, drug, tobacco use # Extensive venous thrombosis -Patient diagnosed earlier this month with extensive portal vein thrombosis and had to be transferred to a tertiary facility as he had active hematuria from has staghorn colliculi that cannot be treated here as well as the thrombosis that would necessitate anticoagulation -CT redemonstrated the extensive thrombosis with slight interval improvement -Patient's Lovenox is presently on hold due to recent acute blood loss anemia secondary to his hematuria requiring a packed red blood cell transfusion 11/24 - Will see if treating UTI helps with patient's hematuria, if so may benefit from retrialing Lovenox given his extensive thrombosis # Left-sided staghorn colliculi and stenting - Stent patent on CT - Follows with Dr. Rascon - Depending on urine culture and progress could consider urology consult if necessary #Type 2 diabetes mellitus -Glucose checks and sliding scale insulin - Patient appears to be on sliding scale at home per med list, glucose only 157 so we will start low medium dosing and can uptitrate as necessary #GERD -Continue PPI, earlier this month patient's PPI was discontinued given his C. difficile however he had significant reflux symptoms afterwards necessitating resuming this, patient is going to be on vancomycin prophylaxis as above unless otherwise decided by physician assuming care # Elevated lactic acid -Patient not tachypneic, tachycardic -White blood cell count only elevated minimally at 11.7 with a creatinine similar to baseline -Platelets and liver function also similar to baseline -Does not appear to be septic -Patient given IV fluids in the ED, does report chronically having a lot of diarrhea and feeling like he has a hard time maintaining his hydration -Additionally we will continue patient's midodrine which is on his home medication list at this time -We will give further gentle hydration - Additionally hold home metformin #DVT ppx: SCDs given hematuria and recent admission for acute blood loss anemia secondary to that Kathie Powers MD Time spent in the patient's overall evaluation, decision-making process, review of diagnostic data, adjustment of management, discussion with other providers, nursing and ancillary staff involved in patient's care documentation, 80 Minutes Charges/Coding Visit Charges Inpatient E&M: 01054 Init Hosp L3
[2024-11-28] MEDS: Vancomycin 125 MG/5 ML Susp PO.SYRINGE PO ×2 (17:15→22:45)
[2024-11-28 17:48] LABS: Reflex Lactate? Y
[2024-11-28] MEDS: 0.9% Normal Saline (1000mL) 1,000 ML 50 ML IV (18:25)
[2024-11-28 18:52] LABS: Lactic Acid 3.6 mmol/L (0.0-2.0)
[2024-11-28] MEDS: Vancomycin IV 500 MG/100 ML BAG 100 MG IV (19:44)
[2024-11-28] MEDS: Lactobacillis Acidophilus 1 CAP PO (19:44)
[2024-11-28] MEDS: rifAXIMin 550 MG Tablet PO (19:47)
--- NOTE | 2024-11-28 20:05 | PCM.RX.CS ---
Consult Antibiotic Management Pharmacy has been consulted to manage selected antibiotic: Vancomycin Type of Intervention Type of Consult: New start Suspected Infection Suspected Infection: Skin/Soft tissue Labs Labs: Sodium 137 mmol/L (133-145) 11/28/24 13:22 Potassium 3.8 mmol/L (3.3-5.1) 11/28/24 13:22 Chloride 107 mmol/L (98-108) 11/28/24 13:22 Carbon Dioxide 17.7 mmol/L (21.0-32.0) L 11/28/24 13:22 Anion Gap 12 (5-15) 11/28/24 13:22 BUN 12 mg/dL (4-19) 11/28/24 13:22 Creatinine 1.09 mg/dL (0.70-1.20) 11/28/24 13:22 Est GFR (MDRD) Non-Af 79 (>60) 11/28/24 13:22 BUN/Creatinine Ratio 11.4 RATIO (10-20) 11/28/24 13:22 Glucose 157 mg/dL (70-99) H 11/28/24 13:22 Dosing Weight Weight used for dosin.4 kg Estimated Creatinine Clearance Estimated Creatinine Clearance: 86 Goal Trough Goal Trough: 15-20 mcg/mL Pharmacy Plan for Drug Dosing Pharmacy Plan for Drug Dosing: Pharmacy Service will continue to monitor and adjust dosing as required. Follow-Up Labs Follow-Up Labs: Trough: Vancomycin Date/Time Labs Ordered Labs to be done on [date and time ordered]: 11/30/24 @0700
[2024-11-28 21:19] LABS: Bedside Glucose 164 mg/dL (74-106)
[2024-11-28] MEDS: Sodium Bicarbonate 650 MG Tablet PO (22:45)
[2024-11-28] MEDS: oxyCODONE 5 MG Tablet PO (22:55)
[2024-11-29 03:45] VITALS: BP 103/58; PULSE 70; RESP 18; TEMP 36.4; O2SAT 100
[2024-11-29 06:00] VITALS: BMI 32.9
[2024-11-29] MEDS: 0.9% Saline Lock 10 ML Syringe IV (06:21)
[2024-11-29] MEDS: Lactobacillis Acidophilus 1 CAP PO ×3 (06:21→22:12)
[2024-11-29] MEDS: Vancomycin 125 MG/5 ML Susp PO.SYRINGE PO ×3 (06:21→17:38)
[2024-11-29 06:25] LABS: Absolute Lymphocyte Count 1.35 X10^3/uL (0.83-4.51); Absolute Neutrophil Count 8.1 X10^3/uL (2.0-7.7); Basophil# 0.04 X10^3/uL; Basophil% 0.4 % (0-1); Eosinophil# 0.27 X10^3/uL; Eosinophils% 2.5 % (0-5); Hematocrit 22.7 % (40-54); Hemoglobin 7.6 g/dL (13.0-16.5); Lymphocyte # 1.35 X10^3/ul (0.83-4.51); Lymphocyte % 12.4 % (19-41); Mean Corp Hgb Conc 33.5 g/dL (32-36); Mean Corpuscular Hgb 30.3 pg (27.0-32.0); Mean Corpuscular Volume 90.4 fL (80-94); Mean Platelet Vol. 12.7 fl (6.2-12.0); Monocyte# 1.14 X10^3/uL; Monocyte% 10.4 % (0-10); NRBC Flagged by Analyzer 0 % (0-5); Neutrophil # 8.08 X10^3/uL (2.7-7.7); Neutrophil % 73.8 % (47-70); Platelet Count 114 K/mm3 (150-450); RBC Distribution Width CV 16.5 % (11.6-14.6); RBC Distribution Width SD 54.1 fl (35.1-43.9); Red Blood Count 2.51 M/mm3 (4.6-6.2); White Blood Count 10.9 K/mm3 (4.4-11.0)
[2024-11-29 06:29] LABS: International Normalized Ratio 1.8; Prothrombin Time (Protime)PT. 21.1 SECONDS (11.7-14.9)
[2024-11-29 06:41] LABS: ALB/GLOB Ratio 1.1 RATIO (0.9-2.4); AST(SGOT) 39 U/L (<=37); Alanine Aminotransfer ALT/SGPT 30 U/L (<=46); Albumin, Serum 2.6 g/dL (3.5-5.0); Alkaline Phosphatase 172 U/L (40-129); Anion Gap 9 (5-15); BUN 13 mg/dL (4-19); BUN/Creat Ratio 13.8 RATIO (10-20); Calcium,Total 7.7 mg/dL (7.6-11.0); Carbon Dioxide 17.9 mmol/L (21.0-32.0); Chloride 107 mmol/L (98-108); Creatinine, Serum 0.96 mg/dL (0.70-1.20); EST Glomerular Filtration Rate 92 (>60); Estimated Creatinine Clearance 98.35 ml/min (50-250); Globulin 2.3 g/dL (2.2-4.2); Glucose 144 mg/dL (70-99); Magnesium 1.1 mg/dL (1.5-2.2); Potassium 3.6 mmol/L (3.3-5.1); Protein, Total 4.9 g/dL (5.9-8.4); Sodium Level 134 mmol/L (133-145)
[2024-11-29 06:45] LABS: Bedside Glucose 145 mg/dL (74-106)
[2024-11-29] MEDS: Vancomycin HCl 1,750 MG in 0.9% Normal Saline (500mL Bag) 500 ML 250 MG IV ×2 (07:27→20:00)
--- NOTE | 2024-11-29 07:28 | PN.HOSP_ITS ---
Reason for Visit Reason for Visit: Diagnoses Cellulitis of abdominal wall (11/28/24) Urinary tract infection, site not specified (11/28/24) Subjective Subjective Patient is a 59-year-old gentleman with multiple comorbidities including cirrhosis of the liver secondary to nonalcoholic fatty liver disease who presented with abdominal wall pain. Diagnosed with left-sided abdominal wall cellulitis admitted to a monitored bed for subsequent management Objective Data Objective Data Vital Signs: Vital Signs Temp Pulse Resp BP Pulse Ox O2 Del Method 97.6 F L 70 18 103/58 L 100 Room Air 11/29/24 03:45 11/29/24 03:45 11/29/24 03:45 11/29/24 03:45 11/29/24 03:45 11/29/24 03:45 Oxygen Delivery Method Room Air Weight: 101.2 kg Body Mass Index (BMI) 32.9 Intake & Output: Intake and Output for Last 24 Hours 11/27/24 11/28/24 11/29/24 23:59 23:59 23:59 Intake Total 1870 / 1870 Output Total 400 / 400 200 / 200 Balance 1470 / 1470 -200 / -200 Lab / Micro Data 11/29/24 05:55 11/29/24 05:55 Labs: Laboratory Results - last 24 hr 11/28/24 13:22: WBC 11.7 H, RBC 2.77 L, Hgb 8.4 L, Hct 26.0 L, MCV 93.9, MCH 30.3, MCHC 32.3, RDW Std Deviation 56.3 H, RDW Coeff of Francis 16.5 H, Plt Count 118 L, MPV 12.4 H, Immature Gran % (Auto) 0.300, Neut % (Auto) 79.1 H, Lymph % (Auto) 9.5 L, [place] % (Auto) 9.1, Eos % (Auto) 1.8, Baso % (Auto) 0.2, Absolute Neuts (auto) 9.2 H, Absolute Lymphs (auto) 1.11, Nucleated RBC % 0, Sodium 137, Potassium 3.8, Chloride 107, Carbon Dioxide 17.7 L, Anion Gap 12, BUN 12, Creatinine 1.09, Estim Creat Clear Calc 85.91, Est GFR (MDRD) Non-Af 79, BUN/Creatinine Ratio 11.4, Glucose 157 H, Calcium 8.3, Total Bilirubin 1.22, D irect Bilirubin 0.72 H, AST 39 H, ALT 31, Alkaline Phosphatase 189 H, Ammonia 68.4 H, Total Protein 5.4 L, Albumin 2.8 L, Globulin 2.6, Lipase 54 11/28/24 13:46: Lactic Acid 3.5 H* 11/28/24 16:04: Urine Color Rocio, Urine Clarity Cloudy, Urine pH 6.5, Ur Specific [place] 1.010, Urine Protein 100 H, Urine Glucose (UA) Normal, Urine Ketones 5 H, Urine Occult Blood 250 H, Urine Nitrite Positive H, Urine Bilirubin Negative, Urine Urobilinogen Normal, Ur Leukocyte Esterase 500 H, Urine RBC 50- 100 SEEN, Urine WBC 50-100 SEEN, Ur Squamous Epith Cells 0-5 SEEN, Urine Bacteria 1+, Urine Mucus 0 SEEN 11/28/24 17:30: Lactic Acid 3.6 H* 11/28/24 19:49: POC Glucose 164 H 11/29/24 05:55: WBC 10.9, RBC 2.51 L, Hgb 7.6 L, Hct 22.7 L, MCV 90.4, MCH 30.3, MCHC 33.5, RDW Std Deviation 54.1 H, RDW Coeff of Francis 16.5 H, Plt Count 114 L, M PV 12.7 H, Immature Gran % (Auto) 0.500, Neut % (Auto) 73.8 H, Lymph % (Auto) 12.4 L, [place] % (Auto) 10.4 H, Eos % (Auto) 2.5, Baso % (Auto) 0.4, Absolute Neuts (auto) 8.1 H, Absolute Lymphs (auto) 1.35, Nucleated RBC % 0, PT 21.1 H, INR 1.8, Sodium 134, Potassium 3.6, Chloride 107, Carbon Dioxide 17.9 L, Anion Gap 9, BUN 13, Creatinine 0.96, Estim Creat Clear Calc 98.35, Est GFR (MDRD) Non-Af 92, BUN/Creatinine Ratio 13.8, Glucose 144 H, Calcium 7.7, Magnesium 1.1 L, Total Bilirubin 1.20, AST 39 H, ALT 30, Alkaline Phosphatase 172 H, Total Protein 4.9 L, Albumin 2.6 L, Globulin 2.3, Albumin/Globulin Ratio 1.1 11/29/24 06:20: POC Glucose 145 H Radiography Diagnostic Testing: Radiology Impression Abdomen/Pelvis CT 11/28/24 13:04 IMPRESSION: 1. No acute findings in the abdomen and pelvis. 2. Cirrhotic liver morphology without focal lesion. 3. Interval improvement ascites, since prior. 4. Slight interval improvement degree of thrombosis involving the portal and splenic veins as well as the mesenteric roof. 5. Sequela of portal hypertension. Reading Location: [facility] Physical Exam Narrative GENERAL: cooperative HEENT: Atraumatic; normocephalic EYES; Anicteric, Normal Conjunctiva NECK; supple, normal thyroid, RESPIRATORY: Diminished to auscultation CARDIOVASCULAR: Regular S1 S2, GI: soft, normoactive bowel sounds, : No Renal angle tenderness; EXTREMITIES: No edema, no clubbing, MUSCULOSKELETAL: no muscle wasting NEURO: Awake; no lateralizing signs. SKIN: An area of induration involving the left lower quadrant of the anterior abdominal wall PSYCH; Flat affect Assessment & Plan Assessment/Plan (1) UTI (urinary tract infection): (2) Abdominal wall cellulitis: PLAN: Plan Patient is a 59-year-old gentleman with multiple comorbidities including cirrhosis of the liver secondary to nonalcoholic fatty liver disease who presented with abdominal wall pain. Diagnosed with left-sided abdominal wall cellulitis admitted to a monitored bed for subsequent management # Left-sided abdominal wall cellulitis -Patient has abdominal wall cellulitis and suspected urinary tract infection as below, given the cellulitis and the patient has grown staph epi and blood in urine before we will treat with vancomycin at this time and de-escalate as culture and sensitivity data become available or as otherwise indicated -Additionally will prophylactically give patient oral Vanco due to very recent C. difficile and his chronic diarrhea - Order probiotic as well # Suspected urinary tract infection - UA is suspicious for UTI - Urine culture sent - Has previously grown staph epi and 2 out of 2 blood cultures and urine simultaneously, will treat with vancomycin as above pending culture and sensitivity data #Left sided pain -Patient with left-sided hip and leg pain that is aching in nature, very difficult to get a good handle on his patient has various tender points along hip and leg but it spares certain areas, additionally had some tenderness on his lower back but it was the same across the whole lower back including paraspinal muscles, patient appears to have somewhat diffuse tenderness as palpating various other areas on his body that did not have pain complaints also listed a similar sensation in pain response -Patient denies sharp pain, no urinary retention or incontinence, denies any weakness or numbness, no alarm symptoms at this time -PT/OT -Symptomatic management at this time, patient tolerated fentanyl very well in the ED without excessive sedation or hypotension so we will continue this as well as oral options for patient while physical therapy eval and further progress are pending - Case management consult - On the CT of the abdomen pelvis there are multilevel degenerative changes lumbar spine with multiple compression deformities in thoracic spine most prominent at T12 however these are unchanged - Could consider MRI if symptoms do not improve with conservative measures 4. Cirrhosis of the liver ? Secondary to nonalcoholic fatty liver disease patient was seen in consultation by GI. Patient is on rifaximin continue 5. Hyponatremia ? Resolved 6. Obstructive sleep apnea ? Patient is on CPAP at night consistent use encouraged 7. Diabetes mellitus type II -patient's oral hypoglycemics held. Placed on long acting insulin, Accu-Cheks a.c. and at bedtime and covered with sliding scale insulin 8. GERD ? Patient is on PPI 9. Class I obesity with BMI of 32 ? Complicating care weight loss advised 10. Hypokalemia -Corrected per protocol ? 11/02/2024 potassium remains low additional replacement given 11. Chronic thrombocytopenia ? Secondary to chronic liver disease monitoring 12. Anemia ? Secondary to chronic disorder monitoring H&H and transfuse if patient becomes symptomatic or hemoglobin falls below 7 13. Nephrolithiasis with hematuria ? Patient is known to have a staghorn calculus and has a stent in place. Was seen in consultation by Dr Rascon with urology's notes and recommendations reviewed. Patient has Del Castillo catheter in place hematuria persist 14. DVT prophylaxis ? Avoid any use of chemoprophylaxis given patient low platelet count as well as hematuria 15. Hypophosphatemia ? 11/02/2024 corrected per protocol 16. Physical deconditioning ? Requested for PT OT eval and long term care social worker to assist with discharge planning ? 11/05/2024; plan is for patient to be discharged home when medically stable. Patient does not qualify for home health as he currently does not have a primary care physician he has been given a referral to pick 1 Time spent in the patient's overall evaluation,decision-making process, review of diagnostic data, adjustment of management, discussion with other providers, nursing nursing and ancillary staff involved in patient's care documentation, 38 Minutes # Liver cirrhosis secondary to HARRIS -Patient was evaluated recently at [facility] for transplant but given poor social support he was not felt to be a candidate for transplant at this time -Continue lactulose and rifaximin -Patient required IV fluids on presentation, will hold diuretics - Patient has chronic leaking from a paracentesis site and has a bag over it to collect any residual leaking - Patient denies any alcohol, drug, tobacco use # Extensive venous thrombosis -Patient diagnosed earlier this month with extensive portal vein thrombosis and had to be transferred to a tertiary facility as he had active hematuria from has staghorn colliculi that cannot be treated here as well as the thrombosis that would necessitate anticoagulation -CT redemonstrated the extensive thrombosis with slight interval improvement -Patient's Lovenox is presently on hold due to recent acute blood loss anemia secondary to his hematuria requiring a packed red blood cell transfusion 11/24 - Will see if treating UTI helps with patient's hematuria, if so may benefit from retrialing Lovenox given his extensive thrombosis # Left-sided staghorn colliculi and stenting - Stent patent on CT - Follows with Dr. Rascon - Depending on urine culture and progress could consider urology consult if necessary #Type 2 diabetes mellitus -Glucose checks and sliding scale insulin - Patient appears to be on sliding scale at home per med list, glucose only 157 so we will start low medium dosing and can uptitrate as necessary #GERD -Continue PPI, earlier this month patient's PPI was discontinued given his C. difficile however he had significant reflux symptoms afterwards necessitating resuming this, patient is going to be on vancomycin prophylaxis as above unless otherwise decided by physician assuming care # Elevated lactic acid -Patient not tachypneic, tachycardic -White blood cell count only elevated minimally at 11.7 with a creatinine similar to baseline -Platelets and liver function also similar to baseline -Does not appear to be septic -Patient given IV fluids in the ED, does report chronically having a lot of diarrhea and feeling like he has a hard time maintaining his hydration -Additionally we will continue patient's midodrine which is on his home medication list at this time -We will give further gentle hydration - Additionally hold home metformin #DVT ppx: SCDs given hematuria and recent admission for acute blood loss anemia secondary to that Kathie Powers MD Time spent in the patient's overall evaluation, decision-making process, review of diagnostic data, adjustment of management, discussion with other providers, nursing and ancillary staff involved in patient's care documentation, 80 Minutes
--- NOTE | 2024-11-29 07:28 | PCM.PN.HOSP ---
Reason for Visit Reason for Visit: Diagnoses Cellulitis of abdominal wall (11/28/24) Urinary tract infection, site not specified (11/28/24) Subjective Subjective Patient is a 59-year-old gentleman with multiple comorbidities including cirrhosis of the liver secondary to nonalcoholic fatty liver disease who presented with abdominal wall pain. Diagnosed with left-sided abdominal wall cellulitis admitted to a monitored bed for subsequent management Objective Data Objective Data Vital Signs: Vital Signs Temp Pulse Resp BP Pulse Ox O2 Del Method 97.6 F L 70 18 103/58 L 100 Room Air 11/29/24 03:45 11/29/24 03:45 11/29/24 03:45 11/29/24 03:45 11/29/24 03:45 11/29/24 03:45 Oxygen Delivery Method Room Air Weight: 101.2 kg Body Mass Index (BMI) 32.9 Intake & Output: Intake and Output for Last 24 Hours 11/27/24 11/28/24 11/29/24 23:59 23:59 23:59 Intake Total 1870 / 1870 Output Total 400 / 400 200 / 200 Balance 1470 / 1470 -200 / -200 Lab / Micro Data 11/29/24 05:55 11/29/24 05:55 Labs: Laboratory Results - last 24 hr 11/28/24 13:22: WBC 11.7 H, RBC 2.77 L, Hgb 8.4 L, Hct 26.0 L, MCV 93.9, MCH 30.3, MCHC 32.3, RDW Std Deviation 56.3 H, RDW Coeff of Francis 16.5 H, Plt Count 118 L, MPV 12.4 H, Immature Gran % (Auto) 0.300, Neut % (Auto) 79.1 H, Lymph % (Auto) 9.5 L, [place] % (Auto) 9.1, Eos % (Auto) 1.8, Baso % (Auto) 0.2, Absolute Neuts (auto) 9.2 H, Absolute Lymphs (auto) 1.11, Nucleated RBC % 0, Sodium 137, Potassium 3.8, Chloride 107, Carbon Dioxide 17.7 L, Anion Gap 12, BUN 12, Creatinine 1.09, Estim Creat Clear Calc 85.91, Est GFR (MDRD) Non-Af 79, BUN/Creatinine Ratio 11.4, Glucose 157 H, Calcium 8.3, Total Bilirubin 1.22, Direct Bilirubin 0.72 H, AST 39 H, ALT 31, Alkaline Phosphatase 189 H, Ammonia 68.4 H, Total Protein 5.4 L, Albumin 2.8 L, Globulin 2.6, Lipase 54 11/28/24 13:46: Lactic Acid 3.5 H* 11/28/24 16:04: Urine Color Rocio, Urine Clarity Cloudy, Urine pH 6.5, Ur Specific [place] 1.010, Urine Protein 100 H, Urine Glucose (UA) Normal, Urine Ketones 5 H, Urine Occult Blood 250 H, Urine Nitrite Positive H, Urine Bilirubin Negative, Urine Urobilinogen Normal, Ur Leukocyte Esterase 500 H, Urine RBC 50-100 SEEN, Urine WBC 50-100 SEEN, Ur Squamous Epith Cells 0-5 SEEN, Urine Bacteria 1+, Urine Mucus 0 SEEN 11/28/24 17:30: Lactic Acid 3.6 H* 11/28/24 19:49: POC Glucose 164 H 11/29/24 05:55: WBC 10.9, RBC 2.51 L, Hgb 7.6 L, Hct 22.7 L, MCV 90.4, MCH 30.3, MCHC 33.5, RDW Std Deviation 54.1 H, RDW Coeff of Francis 16.5 H, Plt Count 114 L, MPV 12.7 H, Immature Gran % (Auto) 0.500, Neut % (Auto) 73.8 H, Lymph % (Auto) 12.4 L, [place] % (Auto) 10.4 H, Eos % (Auto) 2.5, Baso % (Auto) 0.4, Absolute Neuts (auto) 8.1 H, Absolute Lymphs (auto) 1.35, Nucleated RBC % 0, PT 21.1 H, INR 1.8, Sodium 134, Potassium 3.6, Chloride 107, Carbon Dioxide 17.9 L, Anion Gap 9, BUN 13, Creatinine 0.96, Estim Creat Clear Calc 98.35, Est GFR (MDRD) Non-Af 92, BUN/Creatinine Ratio 13.8, Glucose 144 H, Calcium 7.7, Magnesium 1.1 L, Total Bilirubin 1.20, AST 39 H, ALT 30, Alkaline Phosphatase 172 H, Total Protein 4.9 L, Albumin 2.6 L, Globulin 2.3, Albumin/Globulin Ratio 1.1 11/29/24 06:20: POC Glucose 145 H Radiography Diagnostic Testing: Radiology Impression Abdomen/Pelvis CT 11/28/24 13:04 IMPRESSION: 1. No acute findings in the abdomen and pelvis. 2. Cirrhotic liver morphology without focal lesion. 3. Interval improvement ascites, since prior. 4. Slight interval improvement degree of thrombosis involving the portal and splenic veins as well as the mesenteric roof. 5. Sequela of portal hypertension. Reading Location: [facility] Physical Exam Narrative GENERAL: cooperative HEENT: Atraumatic; normocephalic EYES; Anicteric, Normal Conjunctiva NECK; supple, normal thyroid, RESPIRATORY: Diminished to auscultation CARDIOVASCULAR: Regular S1 S2, GI: soft, normoactive bowel sounds, : No Renal angle tenderness; EXTREMITIES: No edema, no clubbing, MUSCULOSKELETAL: no muscle wasting NEURO: Awake; no lateralizing signs. SKIN: An area of induration involving the left lower quadrant of the anterior abdominal wall PSYCH; Flat affect Assessment & Plan Assessment/Plan (1) UTI (urinary tract infection): (2) Abdominal wall cellulitis: PLAN: Plan Patient is a 59-year-old gentleman with multiple comorbidities including cirrhosis of the liver secondary to nonalcoholic fatty liver disease who presented with abdominal wall pain. Diagnosed with left-sided abdominal wall cellulitis admitted to a monitored bed for subsequent management 1. Anterior abdominal wall cellulitis at the site of insertion of his paracentesis back ? Patient started on vancomycin on admission added cefazolin 2. Suspected UTI ? Patient grew multiple organisms with nonsignificant colony counts. 3. Left-sided flank pain ? Patient has history of left-sided staghorn calculi with subsequent stenting. Patient is followed by Dr Rascon plan is for patient to 4. Cirrhosis of the liver ? Secondary to nonalcoholic fatty liver disease patient is followed by GI as outpatient patient is on rifaximin continue 5. Obstructive sleep apnea ? Patient is on CPAP at night consistent use encouraged 6. Diabetes mellitus type II -patient's oral hypoglycemics held. Placed on long acting insulin, Accu-Cheks a.c. and at bedtime and covered with sliding scale insulin 7. Extensive venous thrombosis -Patient diagnosed earlier this month with extensive portal vein thrombosis and had to be transferred to a tertiary facility [facility]. No intervention performed patient was discharged home Lovenox which is currently being held given anemia plan is to resume once hemoglobin stabilizes 8. GERD ? Patient is on PPI 9. Class I obesity with BMI of 32.9 ? Complicating care weight loss advised 10. Chronic thrombocytopenia ? Secondary to chronic liver disease monitoring 11. Anemia ? Secondary to chronic disorder monitoring H&H and transfuse if patient becomes symptomatic or hemoglobin falls below 7. Hemoglobin as of 11/21/2024 was 7.6 ordered a.m. labs 12. Physical deconditioning ? Requested for PT OT eval and social media specialist to assist with discharge planning 13. Lactic acidosis ? Patient presentation not consistent with sepsis this was attributed to patient being on metformin which is currently being held 14. Chronic hypotension ? Previously prescribed midodrine patient has however not been taking midodrine 15. Severe hypomagnesemia ? Magnesium as of this a.m. was 1.1 replace parenteral as well as oral route 16. DVT prophylaxis ? SCDs for now Charges/Coding Visit Charges Inpatient E&M: 75805 Subs Hosp L3
[2024-11-29] MEDS: Sodium Bicarbonate 650 MG Tablet PO ×2 (08:02→22:11)
[2024-11-29] MEDS: Atorvastatin Calcium 40 MG Tablet PO (08:02)
[2024-11-29] MEDS: rifAXIMin 550 MG Tablet PO ×2 (08:02→22:21)
[2024-11-29] MEDS: Midodrine HCl 5 MG Tablet 10 MG PO ×3 (08:02→17:39)
[2024-11-29] MEDS: Lidocaine 5% Patch 1 PATCH TOPICAL (08:02)
[2024-11-29] MEDS: Pantoprazole Sodium 20 MG Tablet PO (08:03)
[2024-11-29 09:45] VITALS: BP 116/66; PULSE 74; RESP 16; TEMP 36.7; O2SAT 100
[2024-11-29] MEDS: Magnesium Sulfate 4gm/100mL 4 GM/100 ML IV.SOLN. IV (10:48)
[2024-11-29] MEDS: Magnesium Chloride 64 MG Delay Rel.Tablet 128 MG PO ×2 (10:52→22:20)
--- NOTE | 2024-11-29 12:00 | CASEMGMT ---
DAYSI HUGHES chart review: Patient was admitted 10/29-11/11/24 for Sepsis, UTI, abdominal and was admitted 11/23-11/25/24 for weakness and dehydration. Patient was most recently discharge to home after he declined to go to SNF. Patient had been [facility] by [facility]. Patient had an appt with [facility] on 11/30 to get established for primary care. Patient returned to [facility] ED on 11/28/24 for left leg pain and was admitted for UTI and left abdominal wall cellulitis. DAYSI HUGHES in to discuss needs at discharge and readmission. Patient returned to hospital prior to PCP appt. Patient states he was taking his medications as prescribed. DAYSI HUGHES reviewed progress with therapy, patient ambulated 15ft min assist x1 and recommended SNF at discharge for additional rehab. Patient states that he is not going anywhere till he gets a cortisone shot for his joint pain. DAYSI HUGHES explained that patient would need to get established with PCP and or pain specialist. DAYSI HUGHES reviewed that patient could got to SNF for additional rehab and they could assist patient in getting established with PCP and pain management. Patient agreeable to go to SNF and would like a list. Patient declined further needs or concerns at this time. DAYSI HUGHES updated SW regarding request for SNF. CM will continue to follow this patient and plan for a safe discharge.
[2024-11-29] MEDS: Insulin Lispro 100 UNIT/ML INSULN.PEN SC ×3 (12:02→22:25)
--- NOTE | 2024-11-29 12:14 | CASEMGMT ---
Discharge Planning A list of?SNF providers including quality and resource use data and consistent with the patient's preferred geographic region, medical needs, and insurance network was created in [employer] Guide.? This list was provided to the pt. India Platt, Discharge Planning Asst.
[2024-11-29 12:16] LABS: Bedside Glucose 186 mg/dL (74-106)
--- NOTE | 2024-11-29 13:28 | CASEMGMT ---
RN CM provided SNF list to patient to review and requested patient provided preferences. Patient to review list and CM will follow-up with patient.
[2024-11-29] MEDS: Cefazolin 1 GM/50 ML BAG IV ×2 (13:52→22:10)
[2024-11-29 17:10] LABS: Bedside Glucose 210 mg/dL (74-106)
[2024-11-29] MEDS: 0.9% Normal Saline (100mL Bag) 100 ML 15 ML IV (22:11)
[2024-11-29] MEDS: Ascorbic Acid 500 MG Tablet PO (22:20)
[2024-11-29] MEDS: cycloBENZAPRine HCl 10 MG Tablet PO (22:21)
[2024-11-29 22:54] LABS: Bedside Glucose 251 mg/dL (74-106)
[2024-11-30] MEDS: Vancomycin 125 MG/5 ML Susp PO.SYRINGE PO ×4 (00:14→17:03)
[2024-11-30 03:58] VITALS: BP 107/63; PULSE 76; RESP 16; TEMP 36.6; O2SAT 99
[2024-11-30 04:45] VITALS: BMI 33.0
[2024-11-30] MEDS: 0.9% Normal Saline (100mL Bag) 100 ML 15 ML IV (05:55)
[2024-11-30] MEDS: Cefazolin 1 GM/50 ML BAG IV (05:56)
[2024-11-30] MEDS: Lactobacillis Acidophilus 1 CAP PO ×3 (05:57→21:15)
[2024-11-30] MEDS: Insulin Lispro 100 UNIT/ML INSULN.PEN SC ×4 (06:02→21:20)
[2024-11-30 06:24] LABS: Bedside Glucose 185 mg/dL (74-106)
[2024-11-30 07:42] LABS: Absolute Lymphocyte Count 1.12 X10^3/uL (0.83-4.51); Absolute Neutrophil Count 4.5 X10^3/uL (2.0-7.7); Basophil# 0.03 X10^3/uL; Basophil% 0.4 % (0-1); Eosinophil# 0.18 X10^3/uL; Eosinophils% 2.6 % (0-5); Hematocrit 21.7 % (40-54); Hemoglobin 7.2 g/dL (13.0-16.5); Lymphocyte # 1.12 X10^3/ul (0.83-4.51); Lymphocyte % 16.3 % (19-41); Mean Corp Hgb Conc 33.2 g/dL (32-36); Mean Corpuscular Hgb 30.1 pg (27.0-32.0); Mean Corpuscular Volume 90.8 fL (80-94); Mean Platelet Vol. 12.4 fl (6.2-12.0); Monocyte# 0.99 X10^3/uL; Monocyte% 14.4 % (0-10); NRBC Flagged by Analyzer 0 % (0-5); Neutrophil # 4.51 X10^3/uL (2.7-7.7); Neutrophil % 65.7 % (47-70); POSITIVE COUNT YES; Platelet Count 78 K/mm3 (150-450); RBC Distribution Width CV 16.2 % (11.6-14.6); RBC Distribution Width SD 53.5 fl (35.1-43.9); Red Blood Count 2.39 M/mm3 (4.6-6.2); White Blood Count 6.9 K/mm3 (4.4-11.0)
[2024-11-30 07:44] LABS: Differential Indicated SCAN CRITERIA MET
--- NOTE | 2024-11-30 07:44 | PCM.PN.HOSP ---
Reason for Visit Reason for Visit: Diagnoses Cellulitis of abdominal wall (11/28/24) Urinary tract infection, site not specified (11/28/24) Subjective Subjective Patient urine cultures positive for ESBL Klebsiella. Did adjust antibiotic therapy. Hemoglobin down to 7.2. Objective Data Objective Data Vital Signs: Vital Signs Temp Pulse Resp BP Pulse Ox O2 Del Method 98 F 76 16 107/63 99 Room Air 11/30/24 03:58 11/30/24 03:58 11/30/24 03:58 11/30/24 03:58 11/30/24 03:58 11/30/24 03:58 Oxygen Delivery Method Room Air Weight: 101.4 kg Body Mass Index (BMI) 33.0 Intake & Output: Intake and Output for Last 24 Hours 11/28/24 11/29/24 11/30/24 23:59 23:59 23:59 Intake Total 1870 / 1870 2990 / 3210 490 / 490 Output Total 400 / 400 800 / 1400 700 / 700 Balance 1470 / 1470 2190 / 1810 -210 / -210 Lab / Micro Data 11/30/24 07:28 11/30/24 07:28 Labs: Laboratory Results - last 24 hr 11/29/24 11:57: POC Glucose 186 H 11/29/24 16:52: POC Glucose 210 H 11/29/24 22:24: POC Glucose 251 H 11/30/24 06:02: POC Glucose 185 H 11/30/24 07:28: WBC 6.9, RBC 2.39 L, Hgb 7.2 L, Hct 21.7 L, MCV 90.8, MCH 30.1, MCHC 33.2, RDW Std Deviation 53.5 H, RDW Coeff of Francis 16.2 H, Plt Count 78 L, MPV 12.4 H, Immature Gran % (Auto) 0.600, Neut % (Auto) 65.7, Lymph % (Auto) 16.3 L, [place] % (Auto) 14.4 H, Eos % (Auto) 2.6, Baso % (Auto) 0.4, Absolute Neuts (auto) 4.5, Absolute Lymphs (auto) 1.12, Nucleated RBC % 0 Micro: Microbiology 11/28/24 16:04 Urine, Clean Catch Urine Culture - Preliminary Klebsiella pneumoniae sp pneum Physical Exam Narrative GENERAL: cooperative HEENT: Atraumatic; normocephalic EYES; Anicteric, Normal Conjunctiva NECK; supple, normal thyroid, RESPIRATORY: Diminished to auscultation CARDIOVASCULAR: Regular S1 S2, GI: soft, normoactive bowel sounds, : No Renal angle tenderness; EXTREMITIES: No edema, no clubbing, MUSCULOSKELETAL: no muscle wasting NEURO: Awake; no lateralizing signs. SKIN: An area of induration involving the left lower quadrant of the anterior abdominal wall PSYCH; Flat affect Assessment & Plan Assessment/Plan (1) UTI (urinary tract infection): (2) Abdominal wall cellulitis: PLAN: Plan Patient is a 59-year-old gentleman with multiple comorbidities including cirrhosis of the liver secondary to nonalcoholic fatty liver disease who presented with abdominal wall pain. Diagnosed with left-sided abdominal wall cellulitis admitted to a monitored bed for subsequent management 1. Anterior abdominal wall cellulitis at the site of insertion of his paracentesis back ? Patient started on vancomycin on admission added cefazolin ? 11/30/2024; patient induration persist 2. Suspected UTI ? Patient grew multiple organisms with nonsignificant colony counts. ? 1419 2024; patient grew ESBL E. coli, despite [place] count not being significant adjusted antibiotic therapy to meropenem. Discontinued cefazolin 3. Left-sided flank pain ? Patient has history of left-sided staghorn calculi with subsequent stenting. Patient is followed by Dr Rascon plan is for patient to 4. Cirrhosis of the liver ? Secondary to nonalcoholic fatty liver disease patient is followed by GI as outpatient patient is on rifaximin continue 5. Obstructive sleep apnea ? Patient is on CPAP at night consistent use encouraged 6. Diabetes mellitus type II -patient's oral hypoglycemics held. Placed on long acting insulin, Accu-Cheks a.c. and at bedtime and covered with sliding scale insulin 7. Extensive venous thrombosis -Patient diagnosed earlier this month with extensive portal vein thrombosis and had to be transferred to a tertiary facility [facility]. No intervention performed patient was discharged home Lovenox which is currently being held given anemia plan is to resume once hemoglobin stabilizes 8. GERD ? Patient is on PPI 9. Class I obesity with BMI of 32.9 ? Complicating care weight loss advised 10. Chronic thrombocytopenia ? Secondary to chronic liver disease monitoring 11. Anemia ? Secondary to chronic disorder monitoring H&H and transfuse if patient becomes symptomatic or hemoglobin falls below 7. Hemoglobin as of 11/21/2024 was 7.6 ordered a.m. labs 12. Physical deconditioning ? Requested for PT OT eval and social science teacher to assist with discharge planning 13. Lactic acidosis ? Patient presentation not consistent with sepsis this was attributed to patient being on metformin which is currently being held 14. Chronic hypotension ? Previously prescribed midodrine patient has however not been taking midodrine 15. Severe hypomagnesemia ? Magnesium as of this a.m. was 1.1 replace parenteral as well as oral route 16. DVT prophylaxis ? SCDs for now Charges/Coding Visit Charges Inpatient E&M: 15575 Subs Hosp L2
[2024-11-30 08:15] LABS: Vancomycin, Trough Level 27.2 ug/mL (5.0-15.0)
[2024-11-30 08:18] LABS: Platelet Estimate MOD DEC (ADEQ)
[2024-11-30 08:32] LABS: AST(SGOT) 75 U/L (<=37); Alanine Aminotransfer ALT/SGPT 37 U/L (<=46); Albumin, Serum 2.5 g/dL (3.5-5.0); Alkaline Phosphatase 194 U/L (40-129); Anion Gap 8 (5-15); BUN 9 mg/dL (4-19); BUN/Creat Ratio 10.5 RATIO (10-20); Calcium,Total 7.6 mg/dL (7.6-11.0); Carbon Dioxide 17.5 mmol/L (21.0-32.0); Chloride 106 mmol/L (98-108); Creatinine, Serum 0.91 mg/dL (0.70-1.20); EST Glomerular Filtration Rate 98 (>60); Estimated Creatinine Clearance 103.85 ml/min (50-250); Globulin 2.4 g/dL (2.2-4.2); Glucose 167 mg/dL (70-99); Magnesium 1.9 mg/dL (1.5-2.2); Phosphorus 1.8 mg/dL (2.7-4.5); Potassium 3.3 mmol/L (3.3-5.1); Protein, Total 4.9 g/dL (5.9-8.4); Sodium Level 132 mmol/L (133-145); Total Bilirubin 0.89 mg/dL (0.00-1.30)
[2024-11-30 09:44] VITALS: BP 100/58; PULSE 74; RESP 17; TEMP 36.8; O2SAT 100
[2024-11-30] MEDS: Midodrine HCl 5 MG Tablet 10 MG PO ×3 (09:47→17:02)
[2024-11-30] MEDS: Ascorbic Acid 500 MG Tablet PO ×2 (09:47→21:15)
[2024-11-30] MEDS: 0.9% Saline Lock 10 ML Syringe IV (09:47)
[2024-11-30] MEDS: Thiamine Hydrochloride 100 MG Tablet PO (09:48)
[2024-11-30] MEDS: Pantoprazole Sodium 20 MG Tablet PO (09:48)
[2024-11-30] MEDS: Calcium Carb/Vitamin D 1 TABLET Tablet PO (09:48)
[2024-11-30] MEDS: Magnesium Chloride 64 MG Delay Rel.Tablet 128 MG PO ×2 (09:48→21:15)
[2024-11-30] MEDS: Furosemide 40 MG Tablet PO (09:48)
[2024-11-30] MEDS: Spironolactone 50 MG Tablet PO (09:49)
[2024-11-30] MEDS: Atorvastatin Calcium 40 MG Tablet PO (09:49)
[2024-11-30] MEDS: Folic Acid 1 MG Tablet PO (09:49)
[2024-11-30] MEDS: rifAXIMin 550 MG Tablet PO ×2 (09:49→21:15)
[2024-11-30] MEDS: Sodium Bicarbonate 650 MG Tablet PO ×2 (09:49→21:15)
--- NOTE | 2024-11-30 10:04 | PCM.RX.CS ---
Consult Antibiotic Management Pharmacy has been consulted to manage selected antibiotic: Vancomycin Type of Intervention Type of Consult: Follow-up Suspected Infection Suspected Infection: Skin/Soft tissue Prior Doses of Antibiotics Prior Doses of Antibiotics Received/Current Regimen: 11/28/24 @ 1651 Vancomycin 2000MG 11/29/24 @ 0730 Vancomycin 1750mg 11/29/24 @ 1999 Vancomycin 1750mg Labs Labs: Sodium 132 mmol/L (133-145) L 11/30/24 07:28 Potassium 3.3 mmol/L (3.3-5.1) 11/30/24 07:28 Chloride 106 mmol/L (98-108) 11/30/24 07:28 Carbon Dioxide 17.5 mmol/L (21.0-32.0) L 11/30/24 07:28 Anion Gap 8 (5-15) 11/30/24 07:28 BUN 9 mg/dL (4-19) 11/30/24 07:28 Creatinine 0.91 mg/dL (0.70-1.20) 11/30/24 07:28 Est GFR (MDRD) Non-Af 98 (>60) 11/30/24 07:28 BUN/Creatinine Ratio 10.5 RATIO (10-20) 11/30/24 07:28 Glucose 167 mg/dL (70-99) H 11/30/24 07:28 Vancomycin Trough 27.2 ug/mL (5.0-15.0) H 11/30/24 07:28 Microbiology Microbiology: Microbiology 11/28/24 16:04 Urine, Clean Catch Urine Culture - Preliminary Klebsiella pneumoniae sp pneum Dosing Weight Weight used for dosin kg Estimated Creatinine Clearance Estimated Creatinine Clearance: 98 Goal Trough Goal Trough: 15-20 mcg/mL Pharmacy Plan for Drug Dosing Pharmacy Plan for Drug Dosing: Hold Vancomycin for now due to trough level of 27.2. Will draw a random Vancomycin level 11/30/24 @ 1999 Pharmacy Service will continue to monitor and adjust dosing as required. Date/Time Labs Ordered Labs to be done on [date and time ordered]: Vancomycin random level 11/30/24 @ 1999
--- NOTE | 2024-11-30 10:54 | CASEMGMT ---
Social Work SW met with pt to discuss discharge plans and obtain SNF choices. Pt immediately and adamantly stating that he will not go to a SNF and he will be returning home. SW spoke with pt regarding multiple failed attempts at home and hospital readmissions. Pt states that the people he lives with are home all the time and able to assist pt. Pt states that he needs to use his walker at home and ask for help from house mates when he needs to move and this will resolve problems. SW strongly encouraged SNF placement for safety and rehabilitation prior to returning home and pt continues to adamantly deny SNF placement. RNJANETTE Cleaning
[2024-11-30] MEDS: Ferrous Sulfate 325 MG Tablet PO (11:32)
[2024-11-30 11:53] LABS: Bedside Glucose 219 mg/dL (74-106)
[2024-11-30] MEDS: Meropenem 1 GM in 0.9% Normal Saline (100mL MB+) 100 ML IV ×2 (14:15→21:13)
[2024-11-30] MEDS: oxyCODONE 5 MG Tablet PO (14:15)
[2024-11-30 16:00] VITALS: BP 110/61; PULSE 73; RESP 17; TEMP 36.7; O2SAT 98
[2024-11-30 17:23] LABS: Bedside Glucose 261 mg/dL (74-106)
[2024-11-30 20:18] LABS: Vancomycin, Random Level 17.7 ug/mL (0.0-15.0)
[2024-11-30 21:10] VITALS: BP 95/54; PULSE 76; RESP 18; TEMP 36.7; O2SAT 99
[2024-11-30] MEDS: cycloBENZAPRine HCl 10 MG Tablet PO (21:15)
[2024-11-30 21:50] LABS: Bedside Glucose 258 mg/dL (74-106)
--- NOTE | 2024-11-30 21:59 | PCM.RX.CS ---
Consult Antibiotic Management Pharmacy has been consulted to manage selected antibiotic: Vancomycin Type of Intervention Type of Consult: Follow-up Suspected Infection Suspected Infection: Skin/Soft tissue Labs Labs: Sodium 132 mmol/L (133-145) L 11/30/24 07:28 Potassium 3.3 mmol/L (3.3-5.1) 11/30/24 07:28 Chloride 106 mmol/L (98-108) 11/30/24 07:28 Carbon Dioxide 17.5 mmol/L (21.0-32.0) L 11/30/24 07:28 Anion Gap 8 (5-15) 11/30/24 07:28 BUN 9 mg/dL (4-19) 11/30/24 07:28 Creatinine 0.91 mg/dL (0.70-1.20) 11/30/24 07:28 Est GFR (MDRD) Non-Af 98 (>60) 11/30/24 07:28 BUN/Creatinine Ratio 10.5 RATIO (10-20) 11/30/24 07:28 Glucose 167 mg/dL (70-99) H 11/30/24 07:28 Vancomycin Trough 27.2 ug/mL (5.0-15.0) H 11/30/24 07:28 Random Vancomycin 17.7 ug/mL (0.0-15.0) H 11/30/24 19:28 Microbiology Microbiology: Microbiology 11/28/24 16:04 Urine, Clean Catch Urine Culture - Preliminary Klebsiella pneumoniae sp pneum Dosing Weight Weight used for dosin kg Estimated Creatinine Clearance Estimated Creatinine Clearance: 104 Goal Trough Goal Trough: 15-20 mcg/mL Pharmacy Plan for Drug Dosing Pharmacy Plan for Drug Dosing: Random vancomycin level of 17.7 was back to within acceptable range, so dosing will be resumed. Per vanco dosing calculator a new dose of 1000mg q12h should give an estimated trough of 15.7. Will initiate now and draw a trough prior to fourth dose of the new regimen. Pharmacy Service will continue to monitor and adjust dosing as required. Follow-Up Labs Follow-Up Labs: Trough: Vancomycin Date/Time Labs Ordered Labs to be done on [date and time ordered]: 12/02/24 @8794
[2024-12-01] MEDS: oxyCODONE 5 MG Tablet PO
[2024-12-01] MEDS: Vancomycin 125 MG/5 ML Susp PO.SYRINGE PO ×5 (00:01→23:27)
[2024-12-01 03:16] VITALS: BMI 33.0
[2024-12-01 03:25] VITALS: BP 113/66; PULSE 78; RESP 18; TEMP 36.4; O2SAT 99
[2024-12-01] MEDS: Meropenem 1 GM in 0.9% Normal Saline (100mL MB+) 100 ML IV ×3 (05:09→22:34)
[2024-12-01] MEDS: Lactobacillis Acidophilus 1 CAP PO ×3 (05:09→20:58)
[2024-12-01] MEDS: 0.9% Saline Lock 10 ML Syringe IV ×2 (05:12→21:00)
[2024-12-01 06:24] LABS: AST(SGOT) 72 U/L (<=37); Alanine Aminotransfer ALT/SGPT 36 U/L (<=46); Albumin, Serum 2.5 g/dL (3.5-5.0); Alkaline Phosphatase 210 U/L (40-129); Anion Gap 8 (5-15); BUN 7 mg/dL (4-19); BUN/Creat Ratio 7.9 RATIO (10-20); Calcium,Total 7.6 mg/dL (7.6-11.0); Carbon Dioxide 19.3 mmol/L (21.0-32.0); Chloride 106 mmol/L (98-108); Creatinine, Serum 0.89 mg/dL (0.70-1.20); EST Glomerular Filtration Rate 99 (>60); Estimated Creatinine Clearance 106.24 ml/min (50-250); Globulin 2.4 g/dL (2.2-4.2); Glucose 245 mg/dL (70-99); Magnesium 1.8 mg/dL (1.5-2.2); Phosphorus 1.8 mg/dL (2.7-4.5); Potassium 3.6 mmol/L (3.3-5.1); Protein, Total 4.9 g/dL (5.9-8.4); Sodium Level 133 mmol/L (133-145); Total Bilirubin 0.95 mg/dL (0.00-1.30)
[2024-12-01 06:28] LABS: Absolute Lymphocyte Count 1.09 X10^3/uL (0.83-4.51); Absolute Neutrophil Count 4.2 X10^3/uL (2.0-7.7); Basophil# 0.02 X10^3/uL; Basophil% 0.3 % (0-1); Eosinophil# 0.25 X10^3/uL; Eosinophils% 3.8 % (0-5); Hematocrit 21.9 % (40-54); Hemoglobin 7.2 g/dL (13.0-16.5); Lymphocyte # 1.09 X10^3/ul (0.83-4.51); Lymphocyte % 16.6 % (19-41); Mean Corp Hgb Conc 32.9 g/dL (32-36); Mean Corpuscular Hgb 30.1 pg (27.0-32.0); Mean Corpuscular Volume 91.6 fL (80-94); Mean Platelet Vol. 12.3 fl (6.2-12.0); Monocyte# 0.96 X10^3/uL; Monocyte% 14.7 % (0-10); NRBC Flagged by Analyzer 0 % (0-5); Neutrophil % 64.1 % (47-70); POSITIVE COUNT YES; Platelet Count 88 K/mm3 (150-450); RBC Distribution Width CV 16.3 % (11.6-14.6); RBC Distribution Width SD 54.1 fl (35.1-43.9); Red Blood Count 2.39 M/mm3 (4.6-6.2); White Blood Count 6.6 K/mm3 (4.4-11.0)
[2024-12-01] MEDS: Insulin Lispro 100 UNIT/ML INSULN.PEN SC ×4 (06:37→20:59)
[2024-12-01 06:58] LABS: Bedside Glucose 229 mg/dL (74-106)
--- NOTE | 2024-12-01 07:41 | PN.HOSP_ITS ---
Reason for Visit Reason for Visit: Diagnoses Cellulitis of abdominal wall (11/28/24) Urinary tract infection, site not specified (11/28/24) Subjective Subjective Patient seen still complains of left flank pain. Diagnostic data this a.m. significant for hypophosphatemia. Consult was placed to ID to help streamline antibiotic therapy Objective Data Objective Data Vital Signs: Vital Signs Temp Pulse Resp BP Pulse Ox O2 Del Method 97.6 F L 78 18 113/66 99 Room Air 12/01/24 03:25 12/01/24 03:25 12/01/24 03:25 12/01/24 03:25 12/01/24 03:25 12/01/24 03:25 Oxygen Delivery Method Room Air Weight: 101.5 kg Body Mass Index (BMI) 33.0 Intake & Output: Intake and Output for Last 24 Hours 11/29/24 11/30/24 12/01/24 23:59 23:59 23:59 Intake Total 2990 / 3210 1860.00 / 1860.00 320 / 320 Output Total 800 / 1400 2800 / 2800 200 / 200 Balance 2190 / 1810 -940.00 / -940.00 120 / 120 Lab / Micro Data 12/01/24 05:25 12/01/24 05:25 Labs: Laboratory Results - last 24 hr 11/30/24 07:28: WBC 6.9, RBC 2.39 L, Hgb 7.2 L, Hct 21.7 L, MCV 90.8, MCH 30.1, MCHC 33.2, RDW Std Deviation 53.5 H, RDW Coeff of Francis 16.2 H, Plt Count 78 L, M PV 12.4 H, Immature Gran % (Auto) 0.600, Neut % (Auto) 65.7, Lymph % (Auto) 16.3 L, [place] % (Auto) 14.4 H, Eos % (Auto) 2.6, Baso % (Auto) 0.4, Absolute Neuts (auto) 4.5, Absolute Lymphs (auto) 1.12, Nucleated RBC % 0, Platelet Estimate MOD DEC, Sodium 132 L, Potassium 3.3, Chloride 106, Carbon Dioxide 17.5 L, Anion Gap 8, BUN 9, Creatinine 0.91, Estim Creat Clear Calc 103.85, Est GFR (MDRD) Non-Af 98, BUN/Creatinine Ratio 10.5, Glucose 167 H, Calcium 7.6, Phosphorus 1.8 L, Magnesium 1.9, Total Bilirubin 0.89, AST 75 H, ALT 37, Alkaline Phosphatase 194 H, Total Protein 4.9 L, Albumin 2.5 L, Globulin 2.4, Albumin/Globulin Ratio 1.0, Vancomycin Trough 27.2 H 11/30/24 11:30: POC Glucose 219 H 11/30/24 17:01: POC Glucose 261 H 11/30/24 19:28: Random Vancomycin 17.7 H 11/30/24 21:20: POC Glucose 258 H 12/01/24 05:25: WBC 6.6, RBC 2.39 L, Hgb 7.2 L, Hct 21.9 L, MCV 91.6, MCH 30.1, MCHC 32.9, RDW Std Deviation 54.1 H, RDW Coeff of Francis 16.3 H, Plt Count 88 L, M PV 12.3 H, Immature Gran % (Auto) 0.500, Neut % (Auto) 64.1, Lymph % (Auto) 16.6 L, [place] % (Auto) 14.7 H, Eos % (Auto) 3.8, Baso % (Auto) 0.3, Absolute Neuts (auto) 4.2, Absolute Lymphs (auto) 1.09, Nucleated RBC % 0, Sodium 133, Potassium 3.6, Chloride 106, Carbon Dioxide 19.3 L, Anion Gap 8, BUN 7, Creatinine 0.89, Estim Creat Clear Calc 106.24, Est GFR (MDRD) Non-Af 99, B UN/Creatinine Ratio 7.9 L, Glucose 245 H, Calcium 7.6, Phosphorus 1.8 L, Magnesium 1.8, Total Bilirubin 0.95, AST 72 H, ALT 36, Alkaline Phosphatase 210 H, Total Protein 4.9 L, Albumin 2.5 L, Globulin 2.4, Albumin/Globulin Ratio 1.0 12/01/24 06:36: POC Glucose 229 H Micro: Microbiology 11/28/24 16:04 Urine, Clean Catch Urine Culture - Preliminary Klebsiella pneumoniae sp pneum Physical Exam Narrative GENERAL: cooperative HEENT: Atraumatic; normocephalic EYES; Anicteric, Normal Conjunctiva NECK; supple, normal thyroid, RESPIRATORY: Diminished to auscultation CARDIOVASCULAR: Regular S1 S2, GI: soft, normoactive bowel sounds, : No Renal angle tenderness; EXTREMITIES: No edema, no clubbing, MUSCULOSKELETAL: no muscle wasting NEURO: Awake; no lateralizing signs. SKIN: An area of induration involving the left lower quadrant of the anterior abdominal wall PSYCH; Flat affect Assessment & Plan Assessment/Plan (1) UTI (urinary tract infection): (2) Abdominal wall cellulitis: PLAN: Plan Patient is a 59-year-old gentleman with multiple comorbidities including cirrhosis of the liver secondary to nonalcoholic fatty liver disease who presented with abdominal wall pain. Diagnosed with left-sided abdominal wall cellulitis admitted to a monitored bed for subsequent management 1. Anterior abdominal wall cellulitis at the site of insertion of his paracentesis back ? Patient started on vancomycin on admission added cefazolin ? 11/30/2024; patient induration persist ? 12/01/2024; consult placed to ID to help streamline antibiotic therapy and discharge 2. Suspected UTI ? Patient grew multiple organisms with nonsignificant colony counts. ? 1419 2024; patient grew ESBL E. coli, despite [place] count not being significant adjusted antibiotic therapy to meropenem. Discontinued cefazolin 3. Left-sided flank pain ? Patient has history of left-sided staghorn calculi with subsequent stenting. Patient is followed by Dr Rascon plan is for patient to 4. Cirrhosis of the liver ? Secondary to nonalcoholic fatty liver disease patient is followed by GI as outpatient patient is on rifaximin continue 5. Obstructive sleep apnea ? Patient is on CPAP at night consistent use encouraged 6. Diabetes mellitus type II -patient's oral hypoglycemics held. Placed on long acting insulin, Accu-Cheks a.c. and at bedtime and covered with sliding scale insulin 7. Extensive venous thrombosis -Patient diagnosed earlier this month with extensive portal vein thrombosis and had to be transferred to a tertiary facility [facility]. No intervention performed patient was discharged home Lovenox which is currently being held given anemia plan is to resume once hemoglobin stabilizes 8. GERD ? Patient is on PPI 9. Class I obesity with BMI of 32.9 ? Complicating care weight loss advised 10. Chronic thrombocytopenia ? Secondary to chronic liver disease monitoring 11. Anemia ? Secondary to chronic disorder monitoring H&H and transfuse if patient becomes symptomatic or hemoglobin falls below 7. Hemoglobin as of 11/21/2024 was 7.6 ordered a.m. labs 12. Physical deconditioning ? Requested for PT OT eval and social welfare administrator to assist with discharge planning 13. Lactic acidosis ? Patient presentation not consistent with sepsis this was attributed to patient being on metformin which is currently being held 14. Chronic hypotension ? Previously prescribed midodrine patient has however not been taking midodrine 15. Severe hypomagnesemia ? Magnesium as of this a.m. was 1.1 replace parenteral as well as oral route 16. DVT prophylaxis ? SCDs for now 17. Hypophosphatemia ? Corrected per protocol repeat labs ordered in a.m. to assess response to therapy Charges/Coding Visit Charges Inpatient E&M: 61751 Subs Hosp L2
[2024-12-01 09:00] VITALS: BP 108/57; PULSE 76; RESP 18; TEMP 36.6; O2SAT 97
[2024-12-01] MEDS: Sodium Bicarbonate 650 MG Tablet PO ×2 (09:02→20:58)
[2024-12-01] MEDS: Spironolactone 50 MG Tablet PO (09:02)
[2024-12-01] MEDS: Ascorbic Acid 500 MG Tablet PO ×2 (09:02→20:59)
[2024-12-01] MEDS: Thiamine Hydrochloride 100 MG Tablet PO (09:02)
[2024-12-01] MEDS: Atorvastatin Calcium 40 MG Tablet PO (09:02)
[2024-12-01] MEDS: Furosemide 40 MG Tablet PO (09:02)
[2024-12-01] MEDS: Folic Acid 1 MG Tablet PO (09:02)
[2024-12-01] MEDS: Calcium Carb/Vitamin D 1 TABLET Tablet PO (09:02)
[2024-12-01] MEDS: rifAXIMin 550 MG Tablet PO ×2 (09:02→20:58)
[2024-12-01] MEDS: Pantoprazole Sodium 20 MG Tablet PO (09:02)
[2024-12-01] MEDS: Magnesium Chloride 64 MG Delay Rel.Tablet 128 MG PO ×2 (09:02→20:58)
[2024-12-01] MEDS: Midodrine HCl 5 MG Tablet 10 MG PO ×3 (09:02→17:12)
[2024-12-01] MEDS: Vancomycin IV 1,000 MG/200 ML BAG 200 MG IV ×3 (09:04→20:59)
[2024-12-01 11:35] VITALS: BP 115/62
[2024-12-01 12:00] LABS: Bedside Glucose 232 mg/dL (74-106)
[2024-12-01] MEDS: Na Biphos/Potassium Phosphate PACKET 1 PACKET PO ×2 (12:16→20:59)
--- NOTE | 2024-12-01 14:03 | PCM.CONS.GEN ---
Assessment & Plan Assessment/Plan (1) UTI (urinary tract infection): PLAN: Ucx with esbl klebs, on meropenem since 11/30. Plan on completing 3 day course tomorrow. (2) Abdominal wall cellulitis: PLAN: Overall improved. No redness seen today. On vanc since 11/28, plan on short course po abx. (3) Hepatic cirrhosis: (4) Clostridium difficile colitis: PLAN: Recent cdiff colitis, now diarrhea improved. Is on rifaximin with lactulose prn. On po vanc. Plan on long taper at discharge. Will follow, thank you HPI Consult Data Date of Consult: 12/01/24 HPI Narrative Reason for Consultation: esbl uti HPI Narrative: FRANKLIN ARCHULETA, is a 59 M with cirrhosis, renal stones, cdiff, presented 11/28 with several weeks progressive L sided abd pain. No fever or chills, c/o dysuria. Now feeling better. Having some L sided drainage from prior paracentesis site, area is less red/sore. No cough or SOB. Full ROS performed and neg except as noted above. [facility] Medical History Diarrhea Sepsis Acidosis, lactic Acute hypotension Acute UTI Chronic hypotension Obesity (BMI 30-39.9) Chronic back pain ISABEL (acute kidney injury) Hypotension Hepatic encephalopathy Hyperbilirubinemia Liver cirrhosis secondary to HARRIS (nonalcoholic steatohepatitis) HLD (hyperlipidemia) HTN (hypertension) Thrombocytopenia Chronic anemia Former tobacco use Diabetes mellitus, type 2 ABBY on CPAP Back pain Home Medications ?Medication ?Instructions ?Recorded ?Last Taken ?Type rifaximin 550 mg tablet (Xifaxan) 550 mg PO BID #60 tabs 09/02/24 11/28/24 Rx insulin lispro 100 unit/mL See Protocol subcut ACHS #0 mL 09/14/24 Unknown Rx subcutaneous pen (Humalog KwikPen (U-100) Insulin) acetaminophen 500 mg tablet 1,000 mg PO Q8 PRN fever or pain 10/28/24 Unknown History calcium 500 mg (as 1 tab PO DAILY 10/28/24 11/28/24 History carbonate)-vitamin D3 5 mcg (200 unit) tablet (Oyster Shell Calcium-Vitamin D3) folic acid 1 mg tablet 1 mg PO DAILY 10/28/24 11/28/24 History atorvastatin 40 mg tablet 40 mg PO DAILY 11/21/24 11/27/24 History cyclobenzaprine 10 mg tablet 10 mg PO QHS cramps 11/21/24 11/27/24 History enoxaparin 120 mg/0.8 mL 105 mg subcut Q12.TCU prevemtative 11/21/24 Unknown History subcutaneous syringe Held on 11/25/24. Instructions: Hemoglobin is too low. May be consider after 1 week if hemoglobin and platelet count permits. Follow-up with PCP ferrous sulfate 325 mg (65 mg 325 mg PO QODAY supplement 11/21/24 Unknown History iron) tablet (FeroSul) furosemide 20 mg tablet 40 mg PO DAILY 11/21/24 11/28/24 History magnesium oxide 400 mg (241.3 mg 400 mg PO DAILY 11/21/24 11/28/24 History magnesium) tablet metformin 500 mg tablet,extended 500 mg PO QPM 11/21/24 11/27/24 History release 24 hr pantoprazole 20 mg tablet,delayed 20 mg PO DAILY 11/21/24 11/28/24 History release sodium bicarbonate 650 mg tablet 650 mg PO BID 11/21/24 11/28/24 History spironolactone 50 mg tablet 50 mg PO DAILY 11/21/24 11/28/24 History thiamine HCl (vitamin B1) 100 mg 100 mg PO DAILY supplement 11/21/24 Unknown History tablet zinc sulfate 50 mg zinc (220 mg) 50 mg PO DAILY 11/21/24 11/28/24 History tablet ascorbic acid (vitamin C) 500 mg 500 mg PO BID #60 tabs 11/25/24 11/28/24 Rx tablet levofloxacin 500 mg tablet 500 mg PO DAILY 2 days #2 tabs 11/25/24 11/28/24 Rx midodrine 10 mg tablet 10 mg PO TID 1 month #90 tabs 11/25/24 Unknown Rx lactulose 10 gram/15 mL oral 15 ml PO TID PRN constipation 11/28/24 Unknown History solution (Constulose) Allergy/AdvReac Type Severity Reaction Status Date / Time No Known Allergies Allergy Verified 11/28/24 12:31 Family History Mother Heart disease Hypertension CAD (coronary artery disease) Myocardial infarction Father Hypertension Heart disease Heart failure Surgical History History of tonsillectomy and adenoidectomy Social History household members: significant other Smoking Status: Former smoker how long ago did patient quit smoking: Quit ~ 3-4 months prior (fall 2023), smoked 1.5 ppd since teen until quit. alcohol intake: never substance use type: does not use Physical Exam Const alert and no apparent distress General Appearance: cooperative HEENT normocephalic and head/scalp atraumatic Eyes PERRL and EOMs intact bilaterally Neck supple and No nodes Resp normal air movement and clear to auscultation bilaterally Cardio regular rate and regular rhythm GI soft to palpation and non-tender; Negative for non-distended Extremity General Extremity: edema Skin Skin Narrative: bag over LLQ paracentesis site, no redness, minimal induration Neuro CN's II-XII intact bilaterally Lab / Micro Data Attestation: I reviewed the patient's lab results. 12/01/24 05:25 12/01/24 05:25 Labs: Laboratory Results - last 24 hr 11/30/24 17:01: POC Glucose 261 H 11/30/24 19:28: Random Vancomycin 17.7 H 11/30/24 21:20: POC Glucose 258 H 12/01/24 05:25: WBC 6.6, RBC 2.39 L, Hgb 7.2 L, Hct 21.9 L, MCV 91.6, MCH 30.1, MCHC 32.9, RDW Std Deviation 54.1 H, RDW Coeff of Francis 16.3 H, Plt Count 88 L, MPV 12.3 H, Immature Gran % (Auto) 0.500, Neut % (Auto) 64.1, Lymph % (Auto) 16.6 L, [place] % (Auto) 14.7 H, Eos % (Auto) 3.8, Baso % (Auto) 0.3, Absolute Neuts (auto) 4.2, Absolute Lymphs (auto) 1.09, Nucleated RBC % 0, Sodium 133, Potassium 3.6, Chloride 106, Carbon Dioxide 19.3 L, Anion Gap 8, BUN 7, Creatinine 0.89, Estim Creat Clear Calc 106.24, Est GFR (MDRD) Non-Af 99, BUN/Creatinine Ratio 7.9 L, Glucose 245 H, Calcium 7.6, Phosphorus 1.8 L, Magnesium 1.8, Total Bilirubin 0.95, AST 72 H, ALT 36, Alkaline Phosphatase 210 H, Total Protein 4.9 L, Albumin 2.5 L, Globulin 2.4, Albumin/Globulin Ratio 1.0 12/01/24 06:36: POC Glucose 229 H 12/01/24 11:37: POC Glucose 232 H Micro: Microbiology 11/28/24 16:04 Urine, Clean Catch Urine Culture - Final ESBL Klebsiella pneumoniae pne
[2024-12-01 16:32] LABS: Bedside Glucose 297 mg/dL (74-106)
[2024-12-01 17:10] VITALS: BP 125/62; PULSE 83; RESP 18; TEMP 36.8; O2SAT 96
[2024-12-01] MEDS: fentaNYL 100 MCG/2 ML Ampul 50 MCG IV (20:57)
[2024-12-01] MEDS: cycloBENZAPRine HCl 10 MG Tablet PO (20:58)
[2024-12-01 23:10] VITALS: BP 111/62; PULSE 85; RESP 14; TEMP 36.6; O2SAT 98
[2024-12-01 23:49] LABS: Bedside Glucose 249 mg/dL (74-106)
[2024-12-02] MEDS: 0.9% Saline Lock 10 ML Syringe IV (02:07)
[2024-12-02] MEDS: Ondansetron 4 MG/2 ML Vial IV (02:07)
[2024-12-02 02:57] VITALS: BMI 33.0
[2024-12-02] MEDS: fentaNYL 100 MCG/2 ML Ampul 50 MCG IV (03:05)
[2024-12-02 04:10] VITALS: BP 114/73; PULSE 89; RESP 14; TEMP 36.7; O2SAT 97
[2024-12-02] MEDS: Lactobacillis Acidophilus 1 CAP PO (05:01)
[2024-12-02] MEDS: Vancomycin 125 MG/5 ML Susp PO.SYRINGE PO ×2 (05:01→12:05)
[2024-12-02] MEDS: Meropenem 1 GM in 0.9% Normal Saline (100mL MB+) 100 ML IV (05:01)
[2024-12-02] MEDS: Insulin Lispro 100 UNIT/ML INSULN.PEN SC ×2 (06:30→12:06)
[2024-12-02 06:52] LABS: Bedside Glucose 243 mg/dL (74-106)
--- NOTE | 2024-12-02 08:34 | PCM.PN.HOSP ---
Reason for Visit Reason for Visit: Diagnoses Enterocolitis due to Clostridium difficile, not specified as recurrent (11/28/24) Unspecified cirrhosis of liver (11/28/24) Cellulitis of abdominal wall (11/28/24) Urinary tract infection, site not specified (11/28/24) Objective Data Objective Data Vital Signs: Vital Signs Temp Pulse Resp BP Pulse Ox O2 Del Method 98.1 F 89 14 114/73 97 Room Air 12/02/24 04:10 12/02/24 04:10 12/02/24 04:10 12/02/24 04:10 12/02/24 04:10 12/02/24 04:10 Oxygen Delivery Method Room Air Weight: 101.6 kg Body Mass Index (BMI) 33.0 Intake & Output: Intake and Output for Last 24 Hours 11/30/24 12/01/24 12/02/24 23:59 23:59 23:59 Intake Total 1860.00 / 1860.00 2060 / 2060 120 / 120 Output Total 2800 / 2800 3600 / 4100 500 / 500 Balance -940.00 / -940.00 -1540 / -2040 -380 / -380 Lab / Micro Data 12/01/24 05:25 12/01/24 05:25 Labs: Laboratory Results - last 24 hr 12/01/24 11:37: POC Glucose 232 H 12/01/24 16:14: POC Glucose 297 H 12/01/24 20:43: POC Glucose 249 H 12/02/24 06:28: POC Glucose 243 H Micro: Microbiology 11/28/24 16:04 Urine, Clean Catch Urine Culture - Final ESBL Klebsiella pneumoniae pne Physical Exam Narrative GENERAL: cooperative HEENT: Atraumatic; normocephalic EYES; Anicteric, Normal Conjunctiva NECK; supple, normal thyroid, RESPIRATORY: Diminished to auscultation CARDIOVASCULAR: Regular S1 S2, GI: soft, normoactive bowel sounds, : No Renal angle tenderness; EXTREMITIES: No edema, no clubbing, MUSCULOSKELETAL: no muscle wasting NEURO: Awake; no lateralizing signs. SKIN: An area of induration involving the left lower quadrant of the anterior abdominal wall PSYCH; Flat affect Assessment & Plan Assessment/Plan (1) UTI (urinary tract infection): (2) Abdominal wall cellulitis: PLAN: Plan Patient is a 59-year-old gentleman with multiple comorbidities including cirrhosis of the liver secondary to nonalcoholic fatty liver disease who presented with abdominal wall pain. Diagnosed with left-sided abdominal wall cellulitis admitted to a monitored bed for subsequent management 1. Anterior abdominal wall cellulitis at the site of insertion of his paracentesis back ? Patient started on vancomycin on admission added cefazolin ? 11/30/2024; patient induration persist ? 12/01/2024; consult placed to ID to help streamline antibiotic therapy and discharge 2. Suspected UTI ? Patient grew multiple organisms with nonsignificant colony counts. ? 1419 2024; patient grew ESBL E. coli, despite [place] count not being significant adjusted antibiotic therapy to meropenem. Discontinued cefazolin 3. Left-sided flank pain ? Patient has history of left-sided staghorn calculi with subsequent stenting. Patient is followed by Dr Rascon plan is for patient to 4. Cirrhosis of the liver ? Secondary to nonalcoholic fatty liver disease patient is followed by GI as outpatient patient is on rifaximin continue 5. Obstructive sleep apnea ? Patient is on CPAP at night consistent use encouraged 6. Diabetes mellitus type II -patient's oral hypoglycemics held. Placed on long acting insulin, Accu-Cheks a.c. and at bedtime and covered with sliding scale insulin 7. Extensive venous thrombosis -Patient diagnosed earlier this month with extensive portal vein thrombosis and had to be transferred to a tertiary facility [facility]. No intervention performed patient was discharged home Lovenox which is currently being held given anemia plan is to resume once hemoglobin stabilizes 8. GERD ? Patient is on PPI 9. Class I obesity with BMI of 32.9 ? Complicating care weight loss advised 10. Chronic thrombocytopenia ? Secondary to chronic liver disease monitoring 11. Anemia ? Secondary to chronic disorder monitoring H&H and transfuse if patient becomes symptomatic or hemoglobin falls below 7. Hemoglobin as of 11/21/2024 was 7.6 ordered a.m. labs 12. Physical deconditioning ? Requested for PT OT eval and addiction social worker to assist with discharge planning 13. Lactic acidosis ? Patient presentation not consistent with sepsis this was attributed to patient being on metformin which is currently being held 14. Chronic hypotension ? Previously prescribed midodrine patient has however not been taking midodrine 15. Severe hypomagnesemia ? Magnesium as of this a.m. was 1.1 replace parenteral as well as oral route 16. DVT prophylaxis ? SCDs for now 17. Hypophosphatemia ? Corrected per protocol repeat labs ordered in a.m. to assess response to therapy
[2024-12-02 09:19] VITALS: BP 124/65; PULSE 85; RESP 16; TEMP 36.7; O2SAT 98
[2024-12-02] MEDS: Ascorbic Acid 500 MG Tablet PO (09:20)
[2024-12-02] MEDS: Thiamine Hydrochloride 100 MG Tablet PO (09:20)
[2024-12-02] MEDS: Magnesium Chloride 64 MG Delay Rel.Tablet 128 MG PO (09:20)
[2024-12-02] MEDS: Atorvastatin Calcium 40 MG Tablet PO (09:20)
[2024-12-02] MEDS: Pantoprazole Sodium 20 MG Tablet PO (09:20)
[2024-12-02] MEDS: Furosemide 40 MG Tablet PO (09:20)
[2024-12-02] MEDS: Spironolactone 50 MG Tablet PO (09:21)
[2024-12-02] MEDS: Calcium Carb/Vitamin D 1 TABLET Tablet PO (09:21)
[2024-12-02] MEDS: Midodrine HCl 5 MG Tablet 10 MG PO ×2 (09:21→12:05)
[2024-12-02] MEDS: Folic Acid 1 MG Tablet PO (09:21)
--- NOTE | 2024-12-02 09:52 | PCM.PN.ID ---
Physical Exam Narrative Feeling ok, but some increased abd pain, no fever Const alert and no apparent distress General Appearance: cooperative Resp normal air movement and clear to auscultation bilaterally Cardio regular rate and regular rhythm GI soft to palpation and non-tender; Negative for non-distended Skin no rashes or lesions noted ID ID: Route of nutrition/ use of supplements: [] Nutritional Intake: [] IV Site: [] [place] Catheter: [] Assessment & Plan Assessment/Plan (1) UTI (urinary tract infection): PLAN: Ucx with esbl klebs, on meropenem since 11/30. Will stop today. (2) Abdominal wall cellulitis: PLAN: Overall improved. No redness seen today. On iv vanc since 11/28, plan on stopping tomorrow. (3) Hepatic cirrhosis: (4) Clostridium difficile colitis: PLAN: Recent cdiff colitis, now diarrhea improved. Is on rifaximin with lactulose prn. On po vanc. Will write for long taper at discharge. Will follow
[2024-12-02] MEDS: Lactulose 20 GM/30 ML UDC 10 GM PO (09:55)
[2024-12-02] MEDS: Na Biphos/Potassium Phosphate PACKET 1 PACKET PO (10:08)
[2024-12-02 10:32] LABS: Absolute Lymphocyte Count 0.92 X10^3/uL (0.83-4.51); Absolute Neutrophil Count 3.9 X10^3/uL (2.0-7.7); Basophil# 0.03 X10^3/uL; Basophil% 0.5 % (0-1); Eosinophil# 0.21 X10^3/uL; Eosinophils% 3.6 % (0-5); Hematocrit 21.9 % (40-54); Hemoglobin 7.2 g/dL (13.0-16.5); Lymphocyte # 0.92 X10^3/ul (0.83-4.51); Lymphocyte % 15.7 % (19-41); Mean Corp Hgb Conc 32.9 g/dL (32-36); Mean Corpuscular Hgb 29.5 pg (27.0-32.0); Mean Corpuscular Volume 89.8 fL (80-94); Mean Platelet Vol. 12.9 fl (6.2-12.0); Monocyte# 0.78 X10^3/uL; Monocyte% 13.3 % (0-10); NRBC Flagged by Analyzer 0 % (0-5); Neutrophil % 66.4 % (47-70); Platelet Count 100 K/mm3 (150-450); RBC Distribution Width CV 16.2 % (11.6-14.6); Red Blood Count 2.44 M/mm3 (4.6-6.2); White Blood Count 5.9 K/mm3 (4.4-11.0)
--- NOTE | 2024-12-02 11:10 | PCM.DC.SUM ---
Providers Date of Admission: 11/28/24 Date of Discharge: 12/02/24 Primary Care Physician: Dayana Primary Care Phys Consultations 12/01/24 10:15 Consult: Infectious Disease Routine Consulting Provider: Thai Thurston Reason for Consult: Recurrent UTI EMERGENT Consult: No MD Notified: Yes Date Notified: 12/01/24 Time Notified: 10:16 Method of Notification: Text Reason For Visit: UTI AND LEFT ABDOMINAL WALL CELLULITIS Diagnosis Discharge Diagnosis (1) UTI (urinary tract infection): Status: Acute Code(s): N39.0 - Urinary tract infection, site not specified (2) Abdominal wall cellulitis: Status: Acute Code(s): L03.311 - Cellulitis of abdominal wall (3) Hepatic cirrhosis: Status: Acute Code(s): K74.60 - Unspecified cirrhosis of liver (4) Clostridium difficile colitis: Status: Acute Code(s): A04.72 - Enterocolitis due to Clostridium difficile, not specified as recurrent Plan Patient is a 59-year-old gentleman with multiple comorbidities including cirrhosis of the liver secondary to nonalcoholic fatty liver disease who presented with abdominal wall pain. Diagnosed with left-sided abdominal wall cellulitis admitted to a monitored bed for subsequent management 1. Anterior abdominal wall cellulitis at the site of insertion of his paracentesis back ? Patient started on vancomycin on admission added cefazolin ? 11/30/2024; patient induration persist ? 12/01/2024; consult placed to ID to help streamline antibiotic therapy and discharge 2. Suspected UTI ? Patient grew multiple organisms with nonsignificant colony counts. ? [id number]; patient grew ESBL E. coli, despite [place] count not being significant adjusted antibiotic therapy to meropenem. Discontinued cefazolin 3. Left-sided flank pain ? Patient has history of left-sided staghorn calculi with subsequent stenting. Patient is followed by Dr Rascon plan is for patient to 4. Cirrhosis of the liver ? Secondary to nonalcoholic fatty liver disease patient is followed by GI as outpatient patient is on rifaximin continue 5. Obstructive sleep apnea ? Patient is on CPAP at night consistent use encouraged 6. Diabetes mellitus type II -patient's oral hypoglycemics held. Placed on long acting insulin, Accu-Cheks a.c. and at bedtime and covered with sliding scale insulin 7. Extensive venous thrombosis -Patient diagnosed earlier this month with extensive portal vein thrombosis and had to be transferred to a tertiary facility [facility]. No intervention performed patient was discharged home Lovenox which is currently being held given anemia plan is to resume once hemoglobin stabilizes 8. GERD ? Patient is on PPI 9. Class I obesity with BMI of 32.9 ? Complicating care weight loss advised 10. Chronic thrombocytopenia ? Secondary to chronic liver disease monitoring 11. Anemia ? Secondary to chronic disorder monitoring H&H and transfuse if patient becomes symptomatic or hemoglobin falls below 7. Hemoglobin as of 11/21/2024 was 7.6 ordered a.m. labs 12. Physical deconditioning ? Requested for PT OT eval and social services analyst to assist with discharge planning 13. Lactic acidosis ? Patient presentation not consistent with sepsis this was attributed to patient being on metformin which is currently being held 14. Chronic hypotension ? Previously prescribed midodrine patient has however not been taking midodrine 15. Severe hypomagnesemia ? Magnesium as of this a.m. was 1.1 replace parenteral as well as oral route 16. DVT prophylaxis ? SCDs for now 17. Hypophosphatemia ? Corrected per protocol repeat labs ordered in a.m. to assess response to therapy 18. C. difficile colitis ? Patient was discharged on long taper of p.o. vancomycin by ID 19. Genital warts -patient was prescribed imiquimod percent cream to be applied 3 times a week for total of 16 weeks Medications at Discharge Home Medications rifaximin 550 mg tablet (Xifaxan) 550 mg PO BID #60 tabs 09/02/24 insulin lispro 100 unit/mL subcutaneous pen (Humalog KwikPen (U-100) Insulin) See Protocol subcut ACHS #0 mL 09/14/24 acetaminophen 500 mg tablet 1,000 mg PO Q8 PRN fever or pain 10/28/24 calcium 500 mg (as carbonate)-vitamin D3 5 mcg (200 unit) tablet (Oyster Shell Calcium-Vitamin D3) 1 tab PO DAILY 10/28/24 folic acid 1 mg tablet 1 mg PO DAILY 10/28/24 atorvastatin 40 mg tablet 40 mg PO DAILY 11/21/24 cyclobenzaprine 10 mg tablet 10 mg PO QHS cramps 11/21/24 enoxaparin 120 mg/0.8 mL subcutaneous syringe 105 mg subcut Q12.TCU prevemtative 11/21/24 ferrous sulfate 325 mg (65 mg iron) tablet (FeroSul) 325 mg PO QODAY supplement 11/21/24 furosemide 20 mg tablet 40 mg PO DAILY 11/21/24 magnesium oxide 400 mg (241.3 mg magnesium) tablet 400 mg PO DAILY 11/21/24 metformin 500 mg tablet,extended release 24 hr 500 mg PO QPM 11/21/24 pantoprazole 20 mg tablet,delayed release 20 mg PO DAILY 11/21/24 sodium bicarbonate 650 mg tablet 650 mg PO BID 11/21/24 spironolactone 50 mg tablet 50 mg PO DAILY 11/21/24 thiamine HCl (vitamin B1) 100 mg tablet 100 mg PO DAILY supplement 11/21/24 zinc sulfate 50 mg zinc (220 mg) tablet 50 mg PO DAILY 11/21/24 ascorbic acid (vitamin C) 500 mg tablet 500 mg PO BID #60 tabs 11/25/24 levofloxacin 500 mg tablet 500 mg PO DAILY 2 days #2 tabs 11/25/24 midodrine 10 mg tablet 10 mg PO TID 1 month #90 tabs 11/25/24 lactulose 10 gram/15 mL oral solution (Constulose) 15 ml PO TID PRN constipation 11/28/24 L.acidophil,salivari-Bifido bifidum-Strep thermoph 175 mg capsule 1 cap PO TID #120 caps 12/02/24 imiquimod 5 % topical cream packet 1 applic topical QODAY #48 packets 12/02/24 potassium, sodium phosphates 280 mg-160 mg-250 mg oral powder packet 1 packet PO BID #100 ea 12/02/24 vancomycin 125 mg capsule 125 mg PO Q6H 35 days #56 caps 12/02/24 Hospital Course Summary of Care Provided Minutes Spent on Discharge: 32 Physical Exam Narrative GENERAL: cooperative HEENT: Atraumatic; normocephalic EYES; Anicteric, Normal Conjunctiva NECK; supple, normal thyroid, RESPIRATORY: Diminished to auscultation CARDIOVASCULAR: Regular S1 S2, GI: soft, normoactive bowel sounds, : Genital warts on the shaft of the penis EXTREMITIES: No edema, no clubbing, MUSCULOSKELETAL: no muscle wasting NEURO: Awake; no lateralizing signs. SKIN: Slight area of induration PSYCH; Flat affect Weight / BMI Weight Weight: 101.6 kg Body Mass Index (BMI) 33.0 ABG / Lab / Microbiology Data 12/02/24 09:40 12/01/24 05:25 Laboratory: Laboratory Results - last 24 hr 12/01/24 11:37: POC Glucose 232 H 12/01/24 16:14: POC Glucose 297 H 12/01/24 20:43: POC Glucose 249 H 12/02/24 06:28: POC Glucose 243 H 12/02/24 09:40: WBC 5.9, RBC 2.44 L, Hgb 7.2 L, Hct 21.9 L, MCV 89.8, MCH 29.5, MCHC 32.9, RDW Std Deviation 53.0 H, RDW Coeff of Francis 16.2 H, Plt Count 100 L, MPV 12.9 H, Immature Gran % (Auto) 0.500, Neut % (Auto) 66.4, Lymph % (Auto) 15.7 L, [place] % (Auto) 13.3 H, Eos % (Auto) 3.6, Baso % (Auto) 0.5, Absolute Neuts (auto) 3.9, Absolute Lymphs (auto) 0.92, Nucleated RBC % 0 Microbiology: Microbiology 11/28/24 16:04 Urine, Clean Catch Urine Culture - Final ESBL Klebsiella pneumoniae pne D/C Instructions Discharge Diet: No restrictions Discharge Activity: Return to Normal Activity Call your doctor if you observe: Fever of 101 or Higher, Shortness of breath, Fainting spells and Chest pain DC O2, CPAP, BIPAP Needs Home O2 Discharge instructions: No Meaningful Use Info Meaningful Use Meaningful Use Diagnoses (Choose all that apply): None applicable Ischemic Stroke Statin Dosing Therapy Reference: STATIN DOSE THERAPY REFERENCE: * Patients > 75 years receive moderate or high dose statin therapy. * Patients 75 years or YOUNGER should receive HIGH intensity statin dose unless contraindicated. You will be required to document reason for non-treatment if statin daily dose does not meet guidelines. HIGH DOSE STATIN THERAPY DAILY Atorvastatin > than or = to 40 mg Rosuvastatin > than or = to 20 mg Amlodipine + Atorvastatin > than or = to 2.5/40 mg Ezetimibe + Simvastatin 10/80 mg Simvastatin 80mg Discharge Plan Admission Admit Date/Time: 11/28/24 16:51 Attending Provider: Hill Acuña Primary Care Provider: Care Physician,No Primary Consulting Providers: Kathie Powers; Thai Thurston Discharge Orders/Prescriptions Prescriptions: New vancomycin 125 mg capsule 125 mg PO Q6H 35 Days Qty: 56 0RF Rx Instructions: 4x a day for 7 days, then 2x a day for 7 days, then 1x a day for 7 days, then 1x q48h for 14 days. [place] Santiagotherm 175 mg Capsule 1 cap PO TID Qty: 120 0RF potassium, sodium phosphates 280-160-250 mg Powder In Packet 1 packet PO BID Qty: 100 0RF imiquimod 5 % cream in packet 1 applic topical QODAY Qty: 48 0RF Continued Xifaxan 550 mg Tablet 550 mg PO BID Qty: 60 0RF insulin lispro [Humalog KwikPen Insulin] 100 unit/mL Insulin Pen See Protocol subcut ACHS Qty: 0 0RF Protocol: 4. Sliding Scale Insulin High-Med Dosing Condition: 150-199 mg/dl = 2 units Condition: 200-259 mg/dl = 4 units Condition: 260-324 mg/dl = 6 units Condition: 325-374 mg/dl = 8 units Condition: 375-409 mg/dl = 10 units Condition: 410-449 mg/dl = 11 units Condition: Greater than 449 call physician Protocol Text: Suggested for: - Patients on Total Daily Insulin Dose of 56-80 units - Patient who are known to be insulin resistant or septic HIGH MEDIUM DOSING ALGORITHM Patient Comments: PT DOESNT TAKE OFTEN folic acid 1 mg tablet 1 mg PO DAILY calcium carbonate-vitamin D3 [Oyster Shell Calcium-Vit D3] 500 mg-5 mcg (200 unit) tablet 1 tab PO DAILY acetaminophen 500 mg Tablet 1,000 mg PO Q8 PRN (Reason: fever or pain) cyclobenzaprine 10 mg tablet 10 mg PO QHS atorvastatin 40 mg tablet 40 mg PO DAILY ferrous sulfate [FeroSul] 325 mg (65 mg iron) tablet 325 mg PO QODAY furosemide 20 mg tablet 40 mg PO DAILY enoxaparin 120 mg/0.8 mL syringe 105 mg subcut Q12.TCU magnesium oxide 400 mg (241.3 mg magnesium) tablet 400 mg PO DAILY sodium bicarbonate 650 mg tablet 650 mg PO BID metformin 500 mg tablet extended release 24 hr 500 mg PO QPM spironolactone 50 mg tablet 50 mg PO DAILY thiamine HCl (vitamin B1) 100 mg tablet 100 mg PO DAILY pantoprazole 20 mg tablet,delayed release (DR/EC) 20 mg PO DAILY zinc sulfate 50 mg zinc (220 mg) tablet 50 mg PO DAILY levofloxacin 500 mg tablet 500 mg PO DAILY 2 Days Qty: 2 0RF midodrine 10 mg tablet 10 mg PO TID 30 Days Qty: 90 0RF Rx Instructions: do not give last dose of day after 6PM or within 4 hrs of bedtime ascorbic acid (vitamin C) 500 mg tablet 500 mg PO BID Qty: 60 2RF lactulose [Constulose] 10 gram/15 mL solution 15 ml PO TID PRN (Reason: constipation) Patient Comments: HASNT HAD TO TAKE Rx Instructions: Goal to have 2 soft bowel movements per day Referrals / Follow Up: Care Physician,No Primary [Primary Care Provider] - Within 1 Week Disposition Disposition (needs filled in before D/C Order can be placed): Home, Self Care Charges/Coding Visit Charges Inpatient E&M: 37799 Disch Hosp >30min
[2024-12-02 11:15] LABS: Vancomycin, Trough Level 19.6 ug/mL (5.0-15.0)
[2024-12-02 11:17] LABS: Magnesium 1.6 mg/dL (1.5-2.2); Phosphorus 2.3 mg/dL (2.7-4.5)
--- NOTE | 2024-12-02 11:25 | PCM.RX.CS ---
Consult Antibiotic Management Pharmacy has been consulted to manage selected antibiotic: Vancomycin Type of Intervention Type of Consult: Follow-up Suspected Infection Suspected Infection: Skin/Soft tissue Prior Doses of Antibiotics Prior Doses of Antibiotics Received/Current Regimen: Vancomycin 1000mg given 12/01 @ 0904, 12/01/24 @ 6609 Labs Labs: Vancomycin Trough 19.6 ug/mL (5.0-15.0) H 12/02/24 09:40 Random Vancomycin 17.7 ug/mL (0.0-15.0) H 11/30/24 19:28 Microbiology Microbiology: Microbiology 11/28/24 16:04 Urine, Clean Catch Urine Culture - Final ESBL Klebsiella pneumoniae pne Dosing Weight Weight used for dosin kg Goal Trough Goal Trough: 15-20 mcg/mL Pharmacy Plan for Drug Dosing Pharmacy Plan for Drug Dosing: Vancomycin 1000mg ever 12 hours Pharmacy Service will continue to monitor and adjust dosing as required. Follow-Up Labs Follow-Up Labs: Trough: Vancomycin Date/Time Labs Ordered Labs to be done on [date and time ordered]: 12/03/24 @ 8787
--- NOTE | 2024-12-02 12:00 | CASEMGMT ---
ID provided script for PO Vancomycin, sent to [facility] pharmacy. RN CM called to see if prior auth required, notified no prior auth required and cost is $0.
[2024-12-02] MEDS: Ferrous Sulfate 325 MG Tablet PO (12:05)
[2024-12-02] MEDS: Sodium Bicarbonate 650 MG Tablet PO (12:05)
[2024-12-02] MEDS: rifAXIMin 550 MG Tablet PO (12:05)
[2024-12-02] MEDS: Vancomycin IV 1,000 MG/200 ML BAG 200 MG IV (12:06)
[2024-12-02 12:13] VITALS: BP 117/68; PULSE 86; RESP 18; TEMP 37.1; O2SAT 97
[2024-12-02 12:33] LABS: Bedside Glucose 259 mg/dL (74-106)
[2024-12-02 13:02] LABS: AST(SGOT) 58 U/L (<=37); Alanine Aminotransfer ALT/SGPT 33 U/L (<=46); Albumin, Serum 2.5 g/dL (3.5-5.0); Anion Gap 7 (5-15); BUN 7 mg/dL (4-19); BUN/Creat Ratio 8.1 RATIO (10-20); Calcium,Total 7.8 mg/dL (7.6-11.0); Chloride 104 mmol/L (98-108); EST Glomerular Filtration Rate 98 (>60); Estimated Creatinine Clearance 105.11 ml/min (50-250); Globulin 2.6 g/dL (2.2-4.2); Glucose 221 mg/dL (70-99); Potassium 3.8 mmol/L (3.3-5.1); Protein, Total 5.1 g/dL (5.9-8.4); Sodium Level 132 mmol/L (133-145); Total Bilirubin 1.07 mg/dL (0.00-1.30)
[2024-12-02 13:15] LABS: Alkaline Phosphatase 219 U/L (40-129)
--- NOTE | 2024-12-02 14:54 | CASEMGMT ---
DAYSI HUGHES noted DC order. Called [facility] to schedule appointment for pt, scheduled for 12/07/24 at 9AM. [facility] stated if pt is a no show they will put him on stand by status only and he will not be able to make any more appointments due to missing so many in the past. DAYSI HUGHES into pt room, informed pt of this. Pt agreeable to appointment on December 07. Added to DC instructions along with [facility] phone number. Pt states he will call family member for ride home.
--- NOTE | 2024-12-02 15:55 | CASEMGMT ---
DAYSI HUGHES received notification of prior auth required for imiquimod cream. Prior auth started on cover my meds. [place] is [id number].
--- NOTE | 2024-12-03 12:36 | CASEMGMT ---
Addendum entered by Deisy Galloway 12/03/24 15:51: At this time, the PA is still pending. PA renewed via CoverMyMeds. Original Note: TC to [employer] who states that the PA is still pending and that the insurance has up to 24 hours to respond. [employer] states that the 24 hours will be up at 1542 today and to submit the request again, at that time, if no response has been given. CM to follow.
--- NOTE | 2024-12-06 10:50 | CASEMGMT ---
Per Fang, the PA for the Imiquimod is still pending. TC to Fang who transferred this RN CM to [facility] services @ [phone]. Elaina states that they have been having issues with Cover[employer] and that a new PA is requested. Elaina faxes this RN CM a Request for RX PA form. Form completed and faxed back to Elaina @ [phone]. PA requested as urgent review. CM to follow.
--- NOTE | 2024-12-06 15:43 | CASEMGMT ---
Received fax from [employer] reporting that the prior authorization for the Imiquimod was approved. Telephone call to [facility] pharmacy and notified. Telephone call to the patient at this time. Patient's landlord answers the phone and was updated on this status. Patient's landlord states understanding and that they will get the medication when able. Denies any further concerns.
== END 2024-12-02 15:30 | disposition home or self-care (01) ==
LOC: ED 13:05 → PCU 16:54
PROVIDERS: Family Medicine; Admitting Provider Internal Medicine; Emergency Provider Emergency Medicine; Visit Provider Internal Medicine
DX: T83.511A Infection and inflammatory reaction due to indwelling urethral catheter, initial encounter (principal); K74.60 Unspecified cirrhosis of liver; E11.9 Type 2 diabetes mellitus without complications; Z79.4 Long term (current) use of insulin; I81 Portal vein thrombosis; A04.72 Enterocolitis due to Clostridium difficile, not specified as recurrent; E87.20 Acidosis, unspecified; D69.6 Thrombocytopenia, unspecified; E83.39 Other disorders of phosphorus metabolism; L03.311 Cellulitis of abdominal wall; D63.8 Anemia in other chronic diseases classified elsewhere; I10 Essential (primary) hypertension; K75.81 Nonalcoholic steatohepatitis (NASH); E66.811 Obesity, class 1; E78.5 Hyperlipidemia, unspecified; K21.9 Gastro-esophageal reflux disease without esophagitis; I95.89 Other hypotension; G47.33 Obstructive sleep apnea (adult) (pediatric); N39.0 Urinary tract infection, site not specified; G89.29 Other chronic pain; Z87.891 Personal history of nicotine dependence; Z79.01 Long term (current) use of anticoagulants; N20.0 Calculus of kidney; Z68.33 Body mass index [BMI] 33.0-33.9, adult; B96.20 Unspecified Escherichia coli [E. coli] as the cause of diseases classified elsewhere; Z99.89 Dependence on other enabling machines and devices; Y73.2 Prosthetic and other implants, materials and accessory gastroenterology and urology devices associated with adverse incidents; R15.9 Full incontinence of feces; B96.1 Klebsiella pneumoniae [K. pneumoniae] as the cause of diseases classified elsewhere; Z16.12 Extended spectrum beta lactamase (ESBL) resistance; Z79.899 Other long term (current) drug therapy; E86.0 Dehydration; A63.0 Anogenital (venereal) warts
CPT/HCPCS: 36415; 74177; 80048; 80053; 80076; 80202; 81001; 82140; 82962; 83605; 83690; 83735; 84100; 85025; 85610; 87077; 87086; 87088; 87186; 96365; 96366; 96367; 96375; 96376; 97162; 97166; 97530; 97535; 97802; 99221; 99285; 99406; J2185; Q9967; A4216; G0378; J2405

== ENCOUNTER → 2024-12-07 | Outpatient (CLI) | payer MEDICAID, SELFPAY ==
[2024-12-07 12:48] LABS: Absolute Lymphocyte Count 1.71 X10^3/uL (0.83-4.51); Absolute Neutrophil Count 5.9 X10^3/uL (2.0-7.7); Basophil# 0.06 X10^3/uL; Basophil% 0.6 % (0-1); Eosinophil# 0.47 X10^3/uL; Eosinophils% 5.1 % (0-5); Hematocrit 26.2 % (40-54); Hemoglobin 8.5 g/dL (13.0-16.5); Lymphocyte # 1.71 X10^3/ul (0.83-4.51); Lymphocyte % 18.4 % (19-41); Mean Corp Hgb Conc 32.4 g/dL (32-36); Mean Corpuscular Hgb 30.2 pg (27.0-32.0); Mean Corpuscular Volume 93.2 fL (80-94); Mean Platelet Vol. 12.3 fl (6.2-12.0); Monocyte# 1.12 X10^3/uL; Monocyte% 12.1 % (0-10); NRBC Flagged by Analyzer 0 % (0-5); Neutrophil # 5.89 X10^3/uL (2.7-7.7); Neutrophil % 63.5 % (47-70); Platelet Count 145 K/mm3 (150-450); RBC Distribution Width CV 16.9 % (11.6-14.6); RBC Distribution Width SD 57.4 fl (35.1-43.9); Red Blood Count 2.81 M/mm3 (4.6-6.2); White Blood Count 9.3 K/mm3 (4.4-11.0)
[2024-12-07 13:08] LABS: Hemoglobin A1c 7.2 % (<=5.6)
[2024-12-07 13:24] LABS: ALB/GLOB Ratio 0.9 RATIO (0.9-2.4); AST(SGOT) 37 U/L (<=37); Alanine Aminotransfer ALT/SGPT 24 U/L (<=46); Albumin, Serum 2.6 g/dL (3.5-5.0); Alkaline Phosphatase 241 U/L (40-129); Anion Gap 12 (5-15); BUN 18 mg/dL (4-19); Calcium,Total 8.2 mg/dL (7.6-11.0); Chloride 103 mmol/L (98-108); Creatinine, Serum 1.78 mg/dL (0.70-1.20); EST Glomerular Filtration Rate 44 (>60); Globulin 2.9 g/dL (2.2-4.2); Glucose 185 mg/dL (70-99); Potassium 3.3 mmol/L (3.3-5.1); Protein, Total 5.5 g/dL (5.9-8.4); Sodium Level 136 mmol/L (133-145); Total Bilirubin 1.21 mg/dL (0.00-1.30)
[2024-12-08 04:07] LABS: GGTP 103 IU/L (0-65)
== END | disposition home or self-care (01) ==
LOC: VSLAB 09:43
PROVIDERS: PCP Nurse Practitioner Family; Visit Provider Nurse Practitioner Family
DX: K74.60 Unspecified cirrhosis of liver (principal); E11.9 Type 2 diabetes mellitus without complications
CPT/HCPCS: 36415; 80053; 82977; 83036; 85025

== ENCOUNTER → 2024-12-15 | Outpatient (CLI) | payer MEDICAID, SELFPAY ==
--- NOTE | 2024-12-15 10:11 | US_ITS ---
PROCEDURE: ABDOMEN LIMITED 12/15/2024 REASON FOR EXAM: ABD PAIN Ascites survey. TECHNIQUE: Ascites survey was performed of the 4 quadrants. COMPARISON: None FINDINGS: Not enough fluid for paracentesis. US/Abdomen Limited IMPRESSION: Not enough fluid for safe paracentesis. Reading Location: [id number]
== END | disposition home or self-care (01) ==
PROVIDERS: PCP Nurse Practitioner Family; Referring Provider Nurse Practitioner Family; Visit Provider Nurse Practitioner Family
DX: R10.9 Unspecified abdominal pain (principal); Z53.09 Procedure and treatment not carried out because of other contraindication
CPT/HCPCS: 76705

== ENCOUNTER 2024-12-26 09:58 | Emergency (ER) | payer MEDICAID, SELFPAY ==
[2024-12-26 10:00] VITALS: BP 92/71; PULSE 64; RESP 20; TEMP 36.1; O2SAT 94; BMI 29.7
--- NOTE | 2024-12-26 10:25 | ED.VIS.GI ---
HPI HPI - GI History of Present Illness Chief Complaint: Abd Pain Abdominal Pain/Flank Pain Onset: Today Context: Sudden Onset Timing: Continuous Quality: Aching Location: Diffuse Worsened by: Nothing Relieved by: Nothing Nausea/Vomiting/Emesis GI Symptom: Positive for Nausea and Vomiting Quality: Positive for Nonbilious; Negative for Blood streaks, Coffee ground or Hematemesis Diarrhea/Melena/Hematochezia GI Symptom: Negative for Diarrhea, Melena or Hematochezia Associated Symptoms Associated Symptoms: Positive for Dysuria and Hematuria Narrative Narrative: Patient presents with abdominal pain that began today. Patient states it began rather suddenly. Patient states it has been constant since this morning. Patient describes it as aching. Patient states it is diffuse across his abdomen. Patient admits to some nausea and vomiting. Patient denies any hematemesis or coffee-ground emesis. Patient denies any diarrhea, melena, or hematochezia. Patient does admit to some dysuria and hematuria. Patient admits to some subjective chills but denies any fevers. Patient admits to some pain in his lower back. Patient denies any chest pain or shortness of breath. [facility] Medical History Weakness Diarrhea Sepsis Acidosis, lactic Acute hypotension Acute UTI Chronic hypotension Obesity (BMI 30-39.9) Chronic back pain ISABEL (acute kidney injury) Hypotension Hepatic encephalopathy Hyperbilirubinemia Liver cirrhosis secondary to HARRIS (nonalcoholic steatohepatitis) HLD (hyperlipidemia) HTN (hypertension) Thrombocytopenia Chronic anemia Former tobacco use Diabetes mellitus, type 2 ABBY on CPAP Back pain Home Medications ?Medication ?Instructions ?Recorded ?Last Taken ?Type rifaximin 550 mg tablet (Xifaxan) 550 mg PO BID diarrhea #60 tabs 09/02/24 11/28/24 Rx insulin lispro 100 unit/mL See Protocol subcut ACHS diabetes 09/14/24 Unknown Rx subcutaneous pen (Humalog KwikPen #0 mL (U-100) Insulin) acetaminophen 500 mg tablet 1,000 mg PO Q8 PRN fever or pain 10/28/24 Unknown History calcium 500 mg (as 1 tab PO DAILY supplement 10/28/24 11/28/24 History carbonate)-vitamin D3 5 mcg (200 unit) tablet (Oyster Shell Calcium-Vitamin D3) folic acid 1 mg tablet 1 mg PO DAILY supplement 10/28/24 11/28/24 History atorvastatin 40 mg tablet 40 mg PO DAILY cholesterol 11/21/24 11/27/24 History cyclobenzaprine 10 mg tablet 10 mg PO QHS cramps 11/21/24 11/27/24 History enoxaparin 120 mg/0.8 mL 105 mg subcut Q12.TCU prevemtative 11/21/24 Unknown History subcutaneous syringe ferrous sulfate 325 mg (65 mg 325 mg PO QODAY supplement 11/21/24 Unknown History iron) tablet (FeroSul) furosemide 20 mg tablet 40 mg PO DAILY diuretic 11/21/24 11/28/24 History magnesium oxide 400 mg (241.3 mg 400 mg PO DAILY supplement 11/21/24 11/28/24 History magnesium) tablet metformin 500 mg tablet,extended 500 mg PO QPM diabetes 11/21/24 11/27/24 History release 24 hr pantoprazole 20 mg tablet,delayed 20 mg PO DAILY reflux 11/21/24 11/28/24 History release sodium bicarbonate 650 mg tablet 650 mg PO BID supplement 11/21/24 11/28/24 History spironolactone 50 mg tablet 50 mg PO DAILY diuretic 11/21/24 11/28/24 History thiamine HCl (vitamin B1) 100 mg 100 mg PO DAILY supplement 11/21/24 Unknown History tablet zinc sulfate 50 mg zinc (220 mg) 50 mg PO DAILY supplement 11/21/24 11/28/24 History tablet ascorbic acid (vitamin C) 500 mg 500 mg PO BID vitamin #60 tabs 11/25/24 11/28/24 Rx tablet midodrine 10 mg tablet 10 mg PO TID blood pressure 1 11/25/24 Unknown Rx month #90 tabs lactulose 10 gram/15 mL oral 15 ml PO TID PRN constipation 11/28/24 Unknown History solution (Constulose) L.acidophil,salivari-Bifido 1 cap PO TID #120 caps 12/02/24 Unknown Rx bifidum-Strep thermoph 175 mg capsule imiquimod 5 % topical cream packet 1 applic topical QODAY #48 packets 12/02/24 Unknown Rx potassium, sodium phosphates 280 1 packet PO BID #100 ea 12/02/24 Unknown Rx mg-160 mg-250 mg oral powder packet vancomycin 125 mg capsule 125 mg PO Q6H 35 days #56 caps 12/02/24 Unknown Rx levofloxacin 500 mg tablet 500 mg PO DAILY infection 2 days 12/26/24 Unknown Rx #4 tabs Allergy/AdvReac Type Severity Reaction Status Date / Time No Known Allergies Allergy Verified 12/26/24 10:03 Family History Mother Heart disease Hypertension CAD (coronary artery disease) Myocardial infarction Father Hypertension Heart disease Heart failure Surgical History History of tonsillectomy and adenoidectomy Social History household members: significant other Smoking Status: Former smoker how long ago did patient quit smoking: Quit ~ 3-4 months prior (fall 2023), smoked 1.5 ppd since teen until quit. alcohol intake: never substance use type: does not use ROS ROS ED Constitutional Constitutional ED: Reports chills; Denies fever(s) Eyes Eyes: Denies blurry vision or change in vision ENT ENT ED: Denies rhinorrhea or sore throat Cardiovascular Cardiovascular: Denies chest pain or palpitations Respiratory/Chest Respiratory/Chest: Denies cough or dyspnea Gastrointestinal Gastrointestinal: Reports abdominal pain, nausea and vomiting Genitourinary Genitourinary ED: Reports dysuria and hematuria Musculoskeletal Musculoskeletal: Reports back pain; Denies neck pain Integumentary Denies abscess or rash Neurologic Neurologic: Denies headache(s) or weakness Allergic/Immunologic Allergic/Immunologic ED: Denies mouth swelling or urticaria EXAM Physical Exam Const Vital Signs: 12/26/24 10:00 12/26/24 12:00 12/26/24 12:46 Temperature 97.0 F L Temperature Source Oral Pulse Rate 64 82 64 Respiratory Rate 20 H 20 H 16 Blood Pressure 92/71 95/56 L Blood Pressure Mean 78 69 Pulse Ox 94 96 99 Oxygen Delivery Method Room Air Room Air 12/26/24 14:00 Temperature Temperature Source Pulse Rate 64 Respiratory Rate Blood Pressure 90/58 L Blood Pressure Mean 68 Pulse Ox 97 Oxygen Delivery Method Room Air Positive well nourished and well developed General Appearance ED: well developed and NAD HEENT Reports moist mucous membranes Eyes General Eye ED: Yes scleral icterus Neck supple and no JVD Resp normal respiratory effort and clear to auscultation bilaterally Cardio regular rate and regular rhythm GI Palpation: soft and tender epigastric, LLQ, RLQ, LUQ, RUQ, periumbilical and suprapubic; Negative for guarding or rebound tenderness present Neuro CN's II-XII intact bilaterally, moves all extremities and no sensory deficits noted Sensorium / Orientation: alert Motor Exam: strength 5/5 throughout Psych mental status grossly normal and thought process normal MDM MDM MDM Narrative Medical decision making narrative: Differential diagnosis include cirrhosis, pancreatitis, cholecystitis, cholelithiasis, ureteral calculus, urinary tract infection, dehydration, hyperglycemia, diabetic ketoacidosis, and electrolyte abnormality. CBC will be obtained to assess for leukocytosis and anemia. Comprehensive metabolic profile will be obtained to assess for hepatic function, renal function, and electrolyte abnormality. Lipase will be obtained to assess for pancreatitis. Serum ammonia level will be obtained to assess for hepatic encephalopathy. Beta hydroxybutyrate will be obtained to assess for diabetic ketoacidosis. PT with INR and PTT will be obtained to assess for coagulopathy. Urinalysis will be obtained to assess for urinary tract infection and hematuria. CT scan of the abdomen and pelvis will be obtained to assess for pancreatitis, cholecystitis, and ureteral calculus. History & Record Review Additional record(s) reviewed:: Prior inpatient record, Prior ED visit and Prior labs Lab Data Attestation: I reviewed the patient's lab results. Lab results narrative: CBC was reviewed. There is a mild anemia with a hemoglobin of 9.6 and hematocrit of 29.6. PT was INR and PTT were reviewed. Pro time was 18.5 and INR is 1.5. PTT was 36.3. Comprehensive metabolic profile was reviewed. BUN was 25 and creatinine was 2.42. These are consistent with previous results. Alkaline phosphatase was slightly elevated at 207. This is consistent with previous results. Serum ammonia level was slightly elevated at 114. Urinalysis was reviewed. Leukocyte Estrace was 500 with 25-50 white blood cells. Occult blood was 250 with 25-50 red blood cells. Lipase was reviewed and was normal. Beta hydroxybutyrate was reviewed and was normal at 0.1. Labs: Laboratory Results - last 24 hr 12/26/24 12/26/24 12/26/24 10:10 10:32 11:48 WBC 11.0 RBC 3.26 L Hgb 9.6 L Hct 29.6 L MCV 90.8 MCH 29.4 MCHC 32.4 RDW Std Deviation 54.4 H RDW Coeff of Francis 16.3 H Plt Count 139 L MPV 12.5 H Immature Gran % (Auto) 0.500 Neut % (Auto) 70.5 H Lymph % (Auto) 15.3 L [place] % (Auto) 7.4 Eos % (Auto) 5.8 H Baso % (Auto) 0.5 Absolute Neuts (auto) 7.8 H Absolute Lymphs (auto) 1.69 Nucleated RBC % 0 PT 18.5 H INR 1.5 APTT 36.3 H Sodium 135 Potassium 3.5 Chloride 100 Carbon Dioxide 20.4 L Anion Gap 14 BUN 25 H Creatinine 2.42 H Estim Creat Clear Calc 37.17 L Est GFR (MDRD) Non-Af 30 L BUN/Creatinine Ratio 10.3 Glucose 386 H Calcium 8.9 Total Bilirubin 1.04 AST 58 H ALT 27 Alkaline Phosphatase 207 H Ammonia 114.0 H Total Protein 6.3 Albumin 2.8 L Globulin 3.5 Albumin/Globulin Ratio 0.8 L Lipase 62 b-Hydroxybutyric mmol/L 0.1 Urine Color Rocio Urine Clarity Cloudy Urine pH 6.0 Ur Specific [place] 1.015 Urine Protein 500 H Urine Glucose (UA) Normal Urine Ketones 5 H Urine Occult Blood 250 H Urine Nitrite Negative Urine Bilirubin Negative Urine Urobilinogen Normal Ur Leukocyte Esterase 500 H Urine RBC 25-50 SEEN Urine WBC 25-50 SEEN Ur Squamous Epith Cells 0 SEEN Urine Bacteria 0 SEEN Urine Mucus 0 SEEN Radiography Diagnostic Testing: Clinical Impression(s) from Imaging Studies Abdomen/Pelvis CT 12/26/24 11:34 IMPRESSION: Cirrhosis, splenomegaly and portal systemic collaterals. No sizable pockets of ascites as were seen on the prior exam. No acute findings Staghorn calculus lower pole left kidney, left double pigtail stent OVERALL FINAL ASSESSMENT: . LI-RADS is not meant to be used in patients <18 years or patients with cirrhosis due to congenital hepatic fibrosis or due to vascular disorders, because these patients have a lower chance of developing HCC. [facility] scan of the abdomen and pelvis was obtained. There is cirrhosis and splenomegaly. There is no sizable pockets of ascites. There is no acute abnormality noted. This was interpreted by the radiologist and was also independently reviewed by myself. Treatment and Re-Evaluation :: Patient was given IV fluids, morphine, and Zofran. Patient was given a dose of lactulose here. Patient states he has not been taking his lactulose as prescribed. Patient is not confused. Patient is awake, alert, and oriented to person, place, and time. Urine culture was ordered. Patient was given a dose of Levaquin. Patient was given a prescription for short course of Levaquin. Patient was instructed to follow-up with his primary care physician in 3 to 5 days. Patient was instructed to return if worse in any way. Patient understood and was agreeable with the plan. All questions were answered. Discharge Plan Triage Chief Complaint: Abd Pain ED Provider: Boone Carvajal Dx/Rx/DC Orders Clinical Impression: Urinary tract infection, Abdominal ascites, Hepatic cirrhosis Instructions: ED Cirrhosis, ED Bladder Infection, Male (Adult) Prescriptions: Continued levofloxacin 500 mg tablet 500 mg PO DAILY 2 Days Qty: 4 0RF No Action Xifaxan 550 mg Tablet 550 mg PO BID Qty: 60 0RF insulin lispro [Humalog KwikPen Insulin] 100 unit/mL Insulin Pen See Protocol subcut ACHS Qty: 0 0RF Protocol: 4. Sliding Scale Insulin High-Med Dosing Condition: 150-199 mg/dl = 2 units Condition: 200-259 mg/dl = 4 units Condition: 260-324 mg/dl = 6 units Condition: 325-374 mg/dl = 8 units Condition: 375-409 mg/dl = 10 units Condition: 410-449 mg/dl = 11 units Condition: Greater than 449 call physician Protocol Text: Suggested for: - Patients on Total Daily Insulin Dose of 56-80 units - Patient who are known to be insulin resistant or septic HIGH MEDIUM DOSING ALGORITHM Patient Comments: PT DOESNT TAKE OFTEN folic acid 1 mg tablet 1 mg PO DAILY calcium carbonate-vitamin D3 [Oyster Shell Calcium-Vit D3] 500 mg-5 mcg (200 unit) tablet 1 tab PO DAILY acetaminophen 500 mg Tablet 1,000 mg PO Q8 PRN (Reason: fever or pain) cyclobenzaprine 10 mg tablet 10 mg PO QHS atorvastatin 40 mg tablet 40 mg PO DAILY ferrous sulfate [FeroSul] 325 mg (65 mg iron) tablet 325 mg PO QODAY furosemide 20 mg tablet 40 mg PO DAILY enoxaparin 120 mg/0.8 mL syringe 105 mg subcut Q12.TCU magnesium oxide 400 mg (241.3 mg magnesium) tablet 400 mg PO DAILY sodium bicarbonate 650 mg tablet 650 mg PO BID metformin 500 mg tablet extended release 24 hr 500 mg PO QPM spironolactone 50 mg tablet 50 mg PO DAILY thiamine HCl (vitamin B1) 100 mg tablet 100 mg PO DAILY pantoprazole 20 mg tablet,delayed release (DR/EC) 20 mg PO DAILY zinc sulfate 50 mg zinc (220 mg) tablet 50 mg PO DAILY midodrine 10 mg tablet 10 mg PO TID 30 Days Qty: 90 0RF Rx Instructions: do not give last dose of day after 6PM or within 4 hrs of bedtime ascorbic acid (vitamin C) 500 mg tablet 500 mg PO BID Qty: 60 2RF lactulose [Constulose] 10 gram/15 mL solution 15 ml PO TID PRN (Reason: constipation) Patient Comments: HASNT HAD TO TAKE Rx Instructions: Goal to have 2 soft bowel movements per day vancomycin 125 mg capsule 125 mg PO Q6H 35 Days Qty: 56 0RF Rx Instructions: 4x a day for 7 days, then 2x a day for 7 days, then 1x a day for 7 days, then 1x q48h for 14 days. L.acidoph,saliva-B.bif-S.therm 175 mg Capsule 1 cap PO TID Qty: 120 0RF potassium, sodium phosphates 280-160-250 mg Powder In Packet 1 packet PO BID Qty: 100 0RF imiquimod 5 % cream in packet 1 applic topical QODAY Qty: 48 0RF Primary Care Provider: Josy Elias Referrals: Josy Elias NP-C [Primary Care Provider] - 3-5 Days Print Language: Belgian Disposition Disposition: Home, Self Care
[2024-12-26 10:34] LABS: Absolute Lymphocyte Count 1.69 X10^3/uL (0.83-4.51); Absolute Neutrophil Count 7.8 X10^3/uL (2.0-7.7); Basophil# 0.06 X10^3/uL; Basophil% 0.5 % (0-1); Eosinophil# 0.64 X10^3/uL; Eosinophils% 5.8 % (0-5); Hematocrit 29.6 % (40-54); Hemoglobin 9.6 g/dL (13.0-16.5); Lymphocyte # 1.69 X10^3/ul (0.83-4.51); Lymphocyte % 15.3 % (19-41); Mean Corp Hgb Conc 32.4 g/dL (32-36); Mean Corpuscular Hgb 29.4 pg (27.0-32.0); Mean Corpuscular Volume 90.8 fL (80-94); Mean Platelet Vol. 12.5 fl (6.2-12.0); Monocyte# 0.82 X10^3/uL; Monocyte% 7.4 % (0-10); NRBC Flagged by Analyzer 0 % (0-5); Neutrophil # 7.77 X10^3/uL (2.7-7.7); Neutrophil % 70.5 % (47-70); Platelet Count 139 K/mm3 (150-450); RBC Distribution Width CV 16.3 % (11.6-14.6); RBC Distribution Width SD 54.4 fl (35.1-43.9); Red Blood Count 3.26 M/mm3 (4.6-6.2)
[2024-12-26] MEDS: 0.9% Normal Saline (1000mL) 1,000 ML 999 ML IV (10:36)
[2024-12-26] MEDS: Ondansetron 4 MG/2 ML Vial IV (10:36)
[2024-12-26 10:43] LABS: International Normalized Ratio 1.5; Prothrombin Time (Protime)PT. 18.5 SECONDS (11.7-14.9)
[2024-12-26 10:44] LABS: Partial Thromboplast Time 36.3 Seconds (24.1-36.2)
[2024-12-26 11:08] LABS: BETA-HYDROXYBUTYRATE 0.1 mmol/L (0.0-0.3); Lipase 62 U/L (13-75)
[2024-12-26 11:12] LABS: ALB/GLOB Ratio 0.8 RATIO (0.9-2.4); AST(SGOT) 58 U/L (<=37); Alanine Aminotransfer ALT/SGPT 27 U/L (<=46); Albumin, Serum 2.8 g/dL (3.5-5.0); Alkaline Phosphatase 207 U/L (40-129); Anion Gap 14 (5-15); BUN 25 mg/dL (4-19); BUN/Creat Ratio 10.3 RATIO (10-20); Calcium,Total 8.9 mg/dL (7.6-11.0); Carbon Dioxide 20.4 mmol/L (21.0-32.0); Chloride 100 mmol/L (98-108); Creatinine, Serum 2.42 mg/dL (0.70-1.20); EST Glomerular Filtration Rate 30 (>60); Estimated Creatinine Clearance 37.17 ml/min (50-250); Globulin 3.5 g/dL (2.2-4.2); Glucose 386 mg/dL (70-99); Potassium 3.5 mmol/L (3.3-5.1); Protein, Total 6.3 g/dL (5.9-8.4); Sodium Level 135 mmol/L (133-145); Total Bilirubin 1.04 mg/dL (0.00-1.30)
[2024-12-26] MEDS: Morphine 4 MG/ML Syringe IV (11:20)
--- NOTE | 2024-12-26 11:34 | CT_ITS ---
PROCEDURE: ABDOMEN/PELVIS WITHOUT CONT 12/26/2024 REASON FOR EXAM: ABDOMINAL PAIN TECHNIQUE: Abdomen and pelvis CT without intravenous contrast. Noncontrast technique limits evaluation of the abdominal and pelvic viscera. Coronal and Sagittal reconstruction series were provided. One or more dose reduction techniques were used (e.g., Automated exposure control, adjustment of the mA and/or kV according to patient size, use of iterative reconstruction technique). PATIENT PREPARATION: Per protocol ORAL CONTRAST TYPE: None. AMOUNT: mL FINDINGS: Lung bases: Lung bases are clear. Liver: Liver is small and has an irregular margin consistent with cirrhosis Gallbladder: Spleen: Nondistended. Multiple densely calcified gallstones Pancreas: Unremarkable Adrenals: Unremarkable. Kidneys: Densely calcified left kidney lower pole staghorn calculus. Double pigtail stent in collecting system, ureter and urinary bladder Bladder: Unremarkable. Reproductive Organs: Prostate calcifications. Prostate gland and seminal vesicles otherwise unremarkable. Bowel: Unremarkable. Appendix: No inflammatory process in the right. Lymph nodes: None. Vasculature: Gastro splenic and gastrohepatic varicoceles from portal systemic collaterals Peritoneum / Retroperitoneum: No sizable pockets of free fluid. Bones: Multilevel compression fractures lower thoracic spine CT/Abdomen/Pelvis without Cont IMPRESSION: Cirrhosis, splenomegaly and portal systemic collaterals. No sizable pockets of ascites as were seen on the prior exam. No acute findings Staghorn calculus lower pole left kidney, left double pigtail stent OVERALL FINAL ASSESSMENT: . LI-RADS is not meant to be used in patients <18 years or patients with cirrhosi s due to congenital hepatic fibrosis or due to vascular disorders, because these patients have a lower chance of developing HC C. Reading Location: [facility]
[2024-12-26 12:00] VITALS: PULSE 82; RESP 20; O2SAT 96
[2024-12-26 12:03] LABS: Bacteria 0 SEEN /hpf (None Seen); Mucous, Urine 0 SEEN /hpf (<or=2+); Squamous Epithelial Cells - UA 0 SEEN /hpf (0-5)
[2024-12-26 12:06] LABS: Color, Urine Amber (Yellow); Glucose, Dipstick Normal (Normal); Ketone-Dipstick 5 mg/dl (Negative); Leukocyte Esterase-Dipstick 500 /ul (Negative); Nitrite-Dipstick Negative (Negative); Occult Blood-Urine 250 /ul (Negative); Protein-Dipstick 500 mg/dl (Negative); Specific Gravity, Urine 1.015 (1.002-1.030); Urine Bilirubin Dipstick Negative (Negative); Urine Clarity Cloudy (Clear); Urine Urobilinogen Normal (Normal)
[2024-12-26 12:15] LABS: Red Blood Cells-Urine 25-50 SEEN /hpf (0-5); White Blood Cells 25-50 SEEN /hpf (0-5)
[2024-12-26] MEDS: Lactulose 20 GM/30 ML UDC PO (12:42)
[2024-12-26 12:46] VITALS: BP 95/56; PULSE 64; RESP 16; O2SAT 99
[2024-12-26 14:00] VITALS: BP 90/58; PULSE 64; O2SAT 97
[2024-12-26] MEDS: levoFLOXacin 750 MG Tablet PO (14:21)
[2024-12-26 14:27] VITALS: BP 90/58; PULSE 64; RESP 16; TEMP 36.1; O2SAT 97
--- NOTE | 2024-12-26 14:27 | ED.RN ---
Patient contact, Sylvia, called to contact Jerald, to pick patient up per request of the patient.
== END 2024-12-26 14:32 | disposition home or self-care (01) ==
PROVIDERS: Emergency Provider Emergency Medicine; PCP Nurse Practitioner Family; Visit Provider Emergency Medicine
DX: N39.0 Urinary tract infection, site not specified (principal); K74.60 Unspecified cirrhosis of liver; E11.9 Type 2 diabetes mellitus without complications; R18.8 Other ascites; E78.5 Hyperlipidemia, unspecified; Z87.891 Personal history of nicotine dependence; I10 Essential (primary) hypertension; D64.9 Anemia, unspecified; R31.9 Hematuria, unspecified
CPT/HCPCS: 74176; 80053; 81001; 82010; 82140; 83690; 85025; 85610; 85730; 87077; 87086; 87088; 87186; 96361; 96374; 96375; 99285; A4216; J2405

== ENCOUNTER 2024-12-30 01:05 | Emergency (ER) | payer MEDICAID, SELFPAY ==
[2024-12-30] VITALS (11 sets, daily range): BP systolic 93–108; BP diastolic 48–80; PULSE 71–82; RESP 14–18; TEMP 36.6–36.7; O2SAT 93–100; BMI 28.4
--- NOTE | 2024-12-30 01:29 | EKG12_ITS ---
Test Reason : CP Blood Pressure : */* mmHG Vent. Rate : 80 BPM Atrial Rate : 80 BPM P-R Int : 196 ms QRS Dur : 102 ms QT Int : 438 ms P-R-T Axes : 37 -38 24 degrees QTcB Int : 505 ms Normal sinus rhythm Left axis deviation Minimal voltage criteria for LVH, may be normal variant ( R in aVL ) Cannot rule out Anterior infarct , age undetermined Prolonged QT Abnormal ECG Confirmed by KIKO GUZMÁN ([id number]), food expeditor GALLITO GOSS ([id number]) on 01/03/2025 7:26:36 AM Referred By: Confirmed By: KIKO GUZMÁN
[2024-12-30 01:40] LABS: Absolute Lymphocyte Count 1.31 X10^3/uL (0.83-4.51); Absolute Neutrophil Count 6.5 X10^3/uL (2.0-7.7); Basophil# 0.04 X10^3/uL; Basophil% 0.4 % (0-1); Eosinophil# 0.58 X10^3/uL; Eosinophils% 6.2 % (0-5); Hematocrit 25.8 % (40-54); Hemoglobin 8.7 g/dL (13.0-16.5); Lymphocyte # 1.31 X10^3/ul (0.83-4.51); Mean Corp Hgb Conc 33.7 g/dL (32-36); Mean Corpuscular Hgb 29.7 pg (27.0-32.0); Mean Corpuscular Volume 88.1 fL (80-94); Mean Platelet Vol. 13.4 fl (6.2-12.0); Monocyte# 0.85 X10^3/uL; Monocyte% 9.1 % (0-10); NRBC Flagged by Analyzer 0 % (0-5); Neutrophil # 6.54 X10^3/uL (2.7-7.7); Neutrophil % 69.7 % (47-70); Platelet Count 131 K/mm3 (150-450); RBC Distribution Width CV 16.1 % (11.6-14.6); RBC Distribution Width SD 50.9 fl (35.1-43.9); Red Blood Count 2.93 M/mm3 (4.6-6.2); White Blood Count 9.4 K/mm3 (4.4-11.0)
--- NOTE | 2024-12-30 01:45 | RAD_ITS ---
PROCEDURE: CHEST PA AND LATERAL 12/30/2024 REASON FOR EXAM: CHEST PAIN TECHNIQUE: Frontal and lateral views of the chest. COMPARISON: 11/21/2024 FINDINGS: The lungs appear clear. Pulmonary vascularity appears within limits. No pleural effusion. The cardiac and mediastinal contours appear within limits. At least 3 anterior wedge compression deformities at the lower thoracic spine with accentuated kyphotic deformity. Partially imaged proximal double-J ureteral stent. RAD/Chest PA and Lateral IMPRESSION: No evidence of acute disease. Reading Location: [id number]
[2024-12-30] MEDS: 0.9% Normal Saline (1000mL) 1,000 ML 999 ML IV (01:55)
[2024-12-30 02:07] LABS: Magnesium 1.3 mg/dL (1.5-2.2); Troponin T High Sensitivity 19 ng/L (<=22)
[2024-12-30 02:15] LABS: Mucous, Urine 0 SEEN /hpf (<or=2+)
[2024-12-30 02:18] LABS: Color, Urine Amber (Yellow); Glucose, Dipstick 1000 mg/dl (Normal); Ketone-Dipstick Negative (Negative); Leukocyte Esterase-Dipstick 500 /ul (Negative); Nitrite-Dipstick Negative (Negative); Occult Blood-Urine 250 /ul (Negative); Protein-Dipstick 100 mg/dl (Negative); Urine Bilirubin Dipstick Negative (Negative); Urine Clarity Cloudy (Clear); Urine Urobilinogen Normal (Normal); Urine pH 6.5 (5.0 - 8.0)
[2024-12-30 02:19] LABS: Anion Gap 15 (5-15); BUN 29 mg/dL (4-19); BUN/Creat Ratio 14.1 RATIO (10-20); Calcium,Total 9.1 mg/dL (7.6-11.0); Carbon Dioxide 22.1 mmol/L (21.0-32.0); Chloride 91 mmol/L (98-108); Creatinine, Serum 2.05 mg/dL (0.70-1.20); EST Glomerular Filtration Rate 37 (>60); Estimated Creatinine Clearance 42.97 ml/min (50-250); Glucose 608 mg/dL (70-99); Potassium 3.2 mmol/L (3.3-5.1); Sodium Level 128 mmol/L (133-145)
[2024-12-30 02:26] LABS: Red Blood Cells-Urine > 100 SEEN /hpf (0-5); Squamous Epithelial Cells - UA 0-5 SEEN /hpf (0-5); Transitional Epithelial - Ur 0-5 SEEN /hpf (0-5); White Blood Cells >100 SEEN /hpf (0-5)
[2024-12-30 02:28] LABS: Bacteria 1+ /hpf (None Seen)
[2024-12-30] MEDS: Ceftriaxone 1 GM/50 ML BAG IV (02:45)
[2024-12-30 04:02] LABS: Troponin T High Sens 2 HR 20 ng/L (<=22)
--- NOTE | 2024-12-30 05:06 | EX.ED.DYSGE1 ---
HPI History of Present Illness Chief Complaint: Chest Pain Informant: patient and EMS Narrative Narrative: Patient is a 59-year-old male with past medical history of insulin-dependent diabetes as well as cirrhosis and hyperlipidemia. He states that over the last day he has been having intermittent midsternal chest pain that is sharp in nature. He states it will come on for no apparent reason last a few seconds and then resolve. He states that as his symptoms have been recurrent he is concerned this could be cardiac in nature and therefore comes in for evaluation. He denies any nausea vomiting diaphoresis or shortness of breath associated with the pain. He denies any recent trauma prior to the pain beginning. [facility] Medical History Weakness Diarrhea Sepsis Acidosis, lactic Acute hypotension Acute UTI Chronic hypotension Obesity (BMI 30-39.9) Chronic back pain ISABEL (acute kidney injury) Hypotension Hepatic encephalopathy Hyperbilirubinemia Liver cirrhosis secondary to HARRIS (nonalcoholic steatohepatitis) HLD (hyperlipidemia) HTN (hypertension) Thrombocytopenia Chronic anemia Former tobacco use Diabetes mellitus, type 2 ABBY on CPAP Back pain Home Medications ?Medication ?Instructions ?Recorded ?Last Taken ?Type rifaximin 550 mg tablet (Xifaxan) 550 mg PO BID diarrhea #60 tabs 09/02/24 11/28/24 Rx insulin lispro 100 unit/mL See Protocol subcut ACHS diabetes 09/14/24 Unknown Rx subcutaneous pen (Humalog KwikPen #0 mL (U-100) Insulin) acetaminophen 500 mg tablet 1,000 mg PO Q8 PRN fever or pain 10/28/24 Unknown History calcium 500 mg (as 1 tab PO DAILY supplement 10/28/24 11/28/24 History carbonate)-vitamin D3 5 mcg (200 unit) tablet (Oyster Shell Calcium-Vitamin D3) folic acid 1 mg tablet 1 mg PO DAILY supplement 10/28/24 11/28/24 History atorvastatin 40 mg tablet 40 mg PO DAILY cholesterol 11/21/24 11/27/24 History furosemide 20 mg tablet 40 mg PO DAILY diuretic 11/21/24 11/28/24 History magnesium oxide 400 mg (241.3 mg 400 mg PO DAILY supplement 11/21/24 11/28/24 History magnesium) tablet metformin 500 mg tablet,extended 500 mg PO QPM diabetes 11/21/24 11/27/24 History release 24 hr pantoprazole 20 mg tablet,delayed 20 mg PO DAILY reflux 11/21/24 11/28/24 History release sodium bicarbonate 650 mg tablet 650 mg PO BID supplement 11/21/24 11/28/24 History spironolactone 50 mg tablet 50 mg PO DAILY diuretic 11/21/24 11/28/24 History thiamine HCl (vitamin B1) 100 mg 100 mg PO DAILY supplement 11/21/24 Unknown History tablet zinc sulfate 50 mg zinc (220 mg) 50 mg PO DAILY supplement 11/21/24 11/28/24 History tablet ascorbic acid (vitamin C) 500 mg 500 mg PO BID vitamin #60 tabs 11/25/24 11/28/24 Rx tablet midodrine 10 mg tablet 10 mg PO TID blood pressure 1 11/25/24 Unknown Rx month #90 tabs lactulose 10 gram/15 mL oral 15 ml PO TID PRN constipation 11/28/24 Unknown History solution (Constulose) L.acidophil,salivari-Bifido 1 cap PO TID #120 caps 12/02/24 Unknown Rx bifidum-Strep thermoph 175 mg capsule potassium, sodium phosphates 280 1 packet PO BID #100 ea 12/02/24 Unknown Rx mg-160 mg-250 mg oral powder packet vancomycin 125 mg capsule 125 mg PO Q6H 35 days #56 caps 12/02/24 Unknown Rx levofloxacin 500 mg tablet 500 mg PO DAILY infection 2 days 12/26/24 Unknown Rx #4 tabs cephalexin 500 mg capsule 500 mg PO TID 7 days #21 caps 12/30/24 Unknown Rx Allergy/AdvReac Type Severity Reaction Status Date / Time No Known Allergies Allergy Verified 12/30/24 01:12 Family History Mother Heart disease Hypertension CAD (coronary artery disease) Myocardial infarction Father Hypertension Heart disease Heart failure Surgical History History of tonsillectomy and adenoidectomy Social History household members: significant other Smoking Status: Former smoker how long ago did patient quit smoking: Quit ~ 3-4 months prior (fall 2023), smoked 1.5 ppd since teen until quit. alcohol intake: never substance use type: does not use ROS ROS ED Constitutional Constitutional ED: Denies chills or fever(s) ENT ENT ED: Denies sore throat Cardiovascular Cardiovascular: Reports chest pain; Denies palpitations or racing heartbeat Respiratory/Chest Respiratory/Chest: Denies cough or dyspnea Gastrointestinal Gastrointestinal: Denies abdominal pain, diarrhea, nausea or vomiting Genitourinary Genitourinary ED: Denies dysuria Musculoskeletal Musculoskeletal: Denies back pain Integumentary Denies rash Neurologic Neurologic: Denies headache(s) Hematologic/Lymphatic Hematologic/Lymphatic: Denies easy bleeding or easy bruising EXAM Physical Exam Const Vital Signs: 12/30/24 01:07 12/30/24 02:06 12/30/24 03:00 Temperature 98.0 F Temperature Source Oral Pulse Rate 82 78 Respiratory Rate 16 Blood Pressure 97/60 107/65 107/67 Blood Pressure Mean 72 79 80 Pulse Ox 98 100 Oxygen Delivery Method Room Air 12/30/24 03:15 12/30/24 03:45 12/30/24 04:00 Temperature Temperature Source Pulse Rate 73 72 72 Respiratory Rate 18 16 15 Blood Pressure 108/80 97/48 L 99/51 L Blood Pressure Mean 88 64 65 Pulse Ox Oxygen Delivery Method 12/30/24 04:15 12/30/24 04:30 12/30/24 04:45 Temperature Temperature Source Pulse Rate 74 73 71 Respiratory Rate 15 17 15 Blood Pressure Blood Pressure Mean Pulse Ox Oxygen Delivery Method 12/30/24 05:00 Temperature Temperature Source Pulse Rate 72 Respiratory Rate 14 Blood Pressure 93/52 L Blood Pressure Mean 64 Pulse Ox Oxygen Delivery Method Positive well nourished and well developed General Appearance ED: well developed; Negative for pallor HEENT HEENT Narrative: Normocephalic atraumatic No signs of infection noted in the posterior pharynx Eyes PERRL and EOMs intact bilaterally Neck supple and no JVD Neck Narrative: No nuchal rigidity or meningeal signs Chest Wall Chest Narrative: There is reproducible pain on palpation of the anterior chest wall over top the sternum and costal joint region. Patient states this is the same pain he has been experiencing No bony deformity or subcutaneous emphysema No overlying soft tissue changes to suggest trauma or infection Resp normal respiratory effort Resp Narrative: Breath sounds are diminished throughout with faint rhonchi in the bilateral bases but no nasal flaring retractions tachypnea or accessory muscle use Cardio regular rate and regular rhythm Rate: other Other Details: Radial and carotid pulses are equal and symmetric GI non-distended and no masses GI Narrative: Abdomen is soft and nondistended with normal active bowel sounds. There is faint pain on palpation over top the suprapubic region No voluntary guarding or rigidity No pulsatile mass or fluid wave Auscultation: normoactive bowel sounds Palpation: soft Extremity normal to inspection Extremity Narrative: No asymmetric edema no pitting edema negative Homans' sign bilaterally Neuro oriented x3, CN's II-XII intact bilaterally and no sensory deficits noted Sensorium / Orientation: alert Motor Exam: strength 5/5 throughout Psych Psych Narrative: Patient has a flat affect Skin no rashes or lesions noted General Skin Exam: Negative for pallor MDM MDM MDM Narrative Medical decision making narrative: Patient arrived to the ER with stable vitals. He reported intermittent chest pain that was sharp in nature without radiation or symptoms of diaphoresis or shortness of breath or nausea vomiting. This is atypical for cardiovascular disease but based on his diabetic status patient could have acute ACS or cardiac dysrhythmia. With his hyperglycemia he could be in DKA or HHS. There is also concern for secondary infection driving his hyperglycemia such as UTI or pneumonia. Secondary to this basic labs were obtained as well as chest x-ray. X-ray revealed no acute lung pathology. Labs displayed no leukocytosis or left shift. Patient's creatinine is elevated at 2.05 but chart review reveals this was higher earlier this month and therefore is more of a chronic issue for him and at his baseline. Patient's blood sugar is grossly elevated at 608 but his anion gap and bicarb are normal going against DKA. Sodium is low at 128 but this is pseudohyponatremia and once corrected is normal at a value of 136. Here serum osmolality is normal at 316 going against HHS. His initial troponin is 19 with a delta has increased by a value of 1to 20 which is not clinically significant and also a normal value ruling him out of ACS by the algorithm. After receiving IV fluids his blood sugar decreased to approximately 450 and therefore he was given 12 units of insulin. He was also treated with Rocephin secondary to the UTI and the urine was sent for culture. At this time he rules out of ACS based on the cardiac algorithm he does not have lung pathology such as pneumonia or pneumothorax he does have a UTI but there are no findings of acute kidney injury or signs of urosepsis. Therefore there is no need for further inpatient evaluation. Patient will be placed on Keflex secondary to the UTI while the culture is pending and he can be discharged and advised to continue his home medication for controlling his blood sugar after being treated with insulin in the ER History & Record Review Discussion w/independent historian: Patient Lab Data Attestation: I reviewed the patient's lab results. Labs: Laboratory Results - last 24 hr 12/30/24 12/30/24 12/30/24 01:15 02:05 03:32 WBC 9.4 RBC 2.93 L Hgb 8.7 L Hct 25.8 L MCV 88.1 MCH 29.7 MCHC 33.7 RDW Std Deviation 50.9 H RDW Coeff of Francis 16.1 H Plt Count 131 L MPV 13.4 H Immature Gran % (Auto) 0.600 Neut % (Auto) 69.7 Lymph % (Auto) 14.0 L Seward % (Auto) 9.1 Eos % (Auto) 6.2 H Baso % (Auto) 0.4 Absolute Neuts (auto) 6.5 Absolute Lymphs (auto) 1.31 Nucleated RBC % 0 Sodium 128 L Potassium 3.2 L Chloride 91 L Carbon Dioxide 22.1 Anion Gap 15 BUN 29 H Creatinine 2.05 H Estim Creat Clear Calc 42.97 L Est GFR (MDRD) Non-Af 37 L BUN/Creatinine Ratio 14.1 Glucose 608 H* Calcium 9.1 Magnesium 1.3 L Troponin T High Sens 19 Troponin T Hi Sens 2 Hr 20 Urine Color Rocio Urine Clarity Cloudy Urine pH 6.5 Ur Specific Coy 1.010 Urine Protein 100 H Urine Glucose (UA) 1000 H Urine Ketones Negative Urine Occult Blood 250 H Urine Nitrite Negative Urine Bilirubin Negative Urine Urobilinogen Normal Ur Leukocyte Esterase 500 H Urine RBC > 100 SEEN Urine WBC >100 SEEN Ur Squamous Epith Cells 0-5 SEEN Ur Transition Epith Cell 0-5 SEEN Urine Bacteria 1+ Urine Mucus 0 SEEN Radiography Diagnostic Testing: Clinical Impression(s) from Imaging Studies Chest X-Ray 12/30/24 01:45 IMPRESSION: No evidence of acute disease. Reading Location: [facility] Chest x-ray as interpreted by the emergency medicine physician no acute infiltrate pneumothorax or pleural effusion Discharge Plan Triage Chief Complaint: Chest Pain ED Provider: Mina Blood Dx/Rx/DC Orders Clinical Impression: Nonspecific chest pain, Urinary tract infection, Hyperglycemia, Diabetes mellitus type 2, insulin dependent, Hepatic cirrhosis, Renal insufficiency Instructions: High Blood Sugar (Hyperglycemia), Urinary Tract Infections in Men, ED Chest Wall Pain, Costochondritis Prescriptions: New cephalexin 500 mg capsule 500 mg PO TID 7 Days Qty: 21 0RF No Action Xifaxan 550 mg Tablet 550 mg PO BID Qty: 60 0RF insulin lispro [Humalog KwikPen Insulin] 100 unit/mL Insulin Pen See Protocol subcut ACHS Qty: 0 0RF Protocol: 4. Sliding Scale Insulin High-Med Dosing Condition: 150-199 mg/dl = 2 units Condition: 200-259 mg/dl = 4 units Condition: 260-324 mg/dl = 6 units Condition: 325-374 mg/dl = 8 units Condition: 375-409 mg/dl = 10 units Condition: 410-449 mg/dl = 11 units Condition: Greater than 449 call physician Protocol Text: Suggested for: - Patients on Total Daily Insulin Dose of 56-80 units - Patient who are known to be insulin resistant or septic HIGH MEDIUM DOSING ALGORITHM Patient Comments: PT DOESNT TAKE OFTEN folic acid 1 mg tablet 1 mg PO DAILY calcium carbonate-vitamin D3 [Oyster Shell Calcium-Vit D3] 500 mg-5 mcg (200 unit) tablet 1 tab PO DAILY acetaminophen 500 mg Tablet 1,000 mg PO Q8 PRN (Reason: fever or pain) atorvastatin 40 mg tablet 40 mg PO DAILY furosemide 20 mg tablet 40 mg PO DAILY magnesium oxide 400 mg (241.3 mg magnesium) tablet 400 mg PO DAILY sodium bicarbonate 650 mg tablet 650 mg PO BID metformin 500 mg tablet extended release 24 hr 500 mg PO QPM spironolactone 50 mg tablet 50 mg PO DAILY thiamine HCl (vitamin B1) 100 mg tablet 100 mg PO DAILY pantoprazole 20 mg tablet,delayed release (DR/EC) 20 mg PO DAILY zinc sulfate 50 mg zinc (220 mg) tablet 50 mg PO DAILY midodrine 10 mg tablet 10 mg PO TID 30 Days Qty: 90 0RF Rx Instructions: do not give last dose of day after 6PM or within 4 hrs of bedtime ascorbic acid (vitamin C) 500 mg tablet 500 mg PO BID Qty: 60 2RF lactulose [Constulose] 10 gram/15 mL solution 15 ml PO TID PRN (Reason: constipation) Patient Comments: HASNT HAD TO TAKE Rx Instructions: Goal to have 2 soft bowel movements per day vancomycin 125 mg capsule 125 mg PO Q6H 35 Days Qty: 56 0RF Rx Instructions: 4x a day for 7 days, then 2x a day for 7 days, then 1x a day for 7 days, then 1x q48h for 14 days. L.acidoph,saliva-B.bif-S.therm 175 mg Capsule 1 cap PO TID Qty: 120 0RF potassium, sodium phosphates 280-160-250 mg Powder In Packet 1 packet PO BID Qty: 100 0RF levofloxacin 500 mg tablet 500 mg PO DAILY 2 Days Qty: 4 0RF Primary Care Provider: Josy Elias Referrals: Josy Elias [employer] [Primary Care Provider] - Activity Restrictions/Additional Instructions: Your workup today did not show any sign of active heart damage or abnormal heart rhythm. Your urine does show changes concerning for infection which is most likely driving your elevated blood sugars. Please take the antibiotic as directed and continue all of your home medication as directed by your doctor. Please return to the ER should you have any further concerns Print Language: Danish Disposition Disposition: Home, Self Care
[2024-12-30] MEDS: Insulin Lispro 100 UNIT/ML INSULN.PEN 12 UNIT SC (05:11)
[2024-12-30 05:15] LABS: Bedside Glucose 453 mg/dL (74-106)
--- NOTE | 2024-12-30 05:18 | ED.RN ---
spoke to pt's son and updated the son per the pt's authorization. Son, Leopoldo said he would work on getting him a ride.
== END 2024-12-30 07:02 | disposition home or self-care (01) ==
PROVIDERS: Emergency Provider Emergency Medicine; PCP Nurse Practitioner Family; Visit Provider Emergency Medicine
DX: R07.9 Chest pain, unspecified (principal); K74.60 Unspecified cirrhosis of liver; E11.65 Type 2 diabetes mellitus with hyperglycemia; Z79.4 Long term (current) use of insulin; K75.81 Nonalcoholic steatohepatitis (NASH); N39.0 Urinary tract infection, site not specified; N28.9 Disorder of kidney and ureter, unspecified; G47.33 Obstructive sleep apnea (adult) (pediatric); I10 Essential (primary) hypertension; E78.5 Hyperlipidemia, unspecified; Z79.84 Long term (current) use of oral hypoglycemic drugs; Z79.899 Other long term (current) drug therapy; Z87.891 Personal history of nicotine dependence
CPT/HCPCS: 71046; 80048; 81001; 82962; 83735; 84484; 85025; 87086; 87088; 93005; 96361; 96365; 99284

== ENCOUNTER 2025-01-02 02:59 | Inpatient (IN) | payer MEDICAID, SELFPAY ==
[2025-01-02] VITALS (7 sets, daily range): BP systolic 95–115; BP diastolic 57–73; PULSE 66–72; RESP 16–20; TEMP 36.2–36.9; O2SAT 94–100; BMI 27.5; BMI 28.8
[2025-01-02] MEDS: Ondansetron 4 MG/2 ML Vial IV (03:30)
[2025-01-02] MEDS: 0.9% Normal Saline (1000mL) 1,000 ML 999 ML IV (03:30)
--- NOTE | 2025-01-02 03:45 | CT_ITS ---
PROCEDURE: ABDOMEN/PELVIS WITHOUT CONT 01/02/2025 REASON FOR EXAM: ABD PAIN, N/V TECHNIQUE: Abdomen and pelvis CT without intravenous contrast. Noncontrast technique limits evaluation of the abdominal and pelvic viscera. Coronal and Sagittal reconstruction series were provided. One or more dose reduction techniques were used (e.g., Automated exposure control, adjustment of the mA and/or kV according to patient size, use of iterative reconstruction technique). PATIENT PREPARATION: Per protocol ORAL CONTRAST TYPE: None. COMPARISON: 12/26/2024 FINDINGS: The lung bases appear clear. Three-vessel coronary calcification and/or stents. Cirrhotic liver splenomegaly and varices again noted, not well evaluated on noncontrast imaging. Contracted, nondistended gallbladder containing calcified stones again noted. The adrenal glands, right kidney and pancreas appear within limits. Overall similar appearance of large left renal staghorn calculus at the mid to lower pole and renal pelvis. A double-J nephroureteral stent is again noted and appears in place. Similar appearance of mild pelvocaliectasis. Mild central mesentery congestion, stranding not significantly changed. No free fluid. Abdominal aorta appears within limits on noncontrast imaging. Aortoiliac atherosclerotic change noted. No bowel dilation or free air. Normal caliber appendix without secondary signs. Fat containing umbilical ventral hernias with some fluid and stranding again noted, not significantly changed. There is again similar appearance of linear sclerosis left sacrum consistent with nonacute insufficiency fracture, unchanged. No significant interval change in multilevel thoracolumbar compression deformities greatest at T12 with severe loss of vertebral height not significantly changed. No retropulsion of bone or malalignment. CT/Abdomen/Pelvis without Cont IMPRESSION: No evidence of acute intra-abdominal traumatic injury on noncontrast imaging. Similar appearance of cirrhosis, splenomegaly and varices and cholelithiasis as above. Left double-J ureteral stent again appears in place with similar appearance of the large left renal staghorn and some associated left pelvicaliectasis, unchanged. Multilevel vertebral compression deformities are not significantly changed in a ppearance. A linear area of sclerosis left sacrum suggesting insufficiency fracture again noted, unchanged. Reading Location: [id number]
[2025-01-02 03:48] LABS: Absolute Lymphocyte Count 1.55 X10^3/uL (0.83-4.51); Absolute Neutrophil Count 8.6 X10^3/uL (2.0-7.7); Basophil# 0.05 X10^3/uL; Basophil% 0.4 % (0-1); Eosinophil# 0.87 X10^3/uL; Eosinophils% 6.9 % (0-5); Hemoglobin 9.5 g/dL (13.0-16.5); Lymphocyte # 1.55 X10^3/ul (0.83-4.51); Lymphocyte % 12.2 % (19-41); Mean Corp Hgb Conc 33.9 g/dL (32-36); Mean Corpuscular Hgb 29.6 pg (27.0-32.0); Mean Corpuscular Volume 87.2 fL (80-94); Mean Platelet Vol. 12.1 fl (6.2-12.0); Monocyte# 1.51 X10^3/uL; Monocyte% 11.9 % (0-10); NRBC Flagged by Analyzer 0 % (0-5); POSITIVE DIFFERENTIAL YES; Platelet Count 171 K/mm3 (150-450); RBC Distribution Width CV 16.4 % (11.6-14.6); RBC Distribution Width SD 51.1 fl (35.1-43.9); Red Blood Count 3.21 M/mm3 (4.6-6.2); White Blood Count 12.7 K/mm3 (4.4-11.0)
--- NOTE | 2025-01-02 03:55 | CT_ITS ---
PROCEDURE: SPINE CERVICAL WITHOUT CONTRAS 01/02/2025 REASON FOR EXAM: FALL TECHNIQUE: Cervical spine CT without contrast. Coronal and Sagittal reconstruction series were provided. One or more dose reduction techniques were used (e.g., Automated exposure control, adjustment of the mA and/or kV according to patient size, use of iterative reconstruction technique RADIATION DOSE SUMMARY: CTDlvol: 23.75 mGy DLP: 490.85 mGycm COMPARISON: 08/29/2024 FINDINGS: No fracture or malalignment. No prevertebral soft tissue swelling. Multilevel spondylosis/discogenic change greatest at C5-6 again noted with multilevel small posterior disc bulges suggested and posterior disc osteophyte complex C5-6 again noted. Visualized apices appear clear. CT/Spine Cervical without Contras IMPRESSION: No fracture or malalignment. Multilevel spondylosis/discogenic change greatest at C5-6 Reading Location: [id number]
--- NOTE | 2025-01-02 03:55 | CT_ITS ---
PROCEDURE: BRAIN/HEAD WITHOUT CONTRAST 01/02/2025 REASON FOR EXAM: FALL TECHNIQUE: Head CT without intravenous contrast. Coronal and Sagittal reconstruction series were provided. One or more dose reduction techniques were used (e.g., Automated exposure control, adjustment of the mA and/or kV according to patient size, use of iterative reconstruction technique. RADIATION DOSE SUMMARY: CTDlvol: 44.99 mGy DLP: 863.60 mGycm COMPARISON: 08/29/2024 FINDINGS: No intracranial hemorrhage, mass effect or calvarial fracture. The ventricles are unchanged in size and remain midline. Moderate volume loss, atrophy again noted. Mild left maxillary sinus disease appears mildly decreased from the prior study. The other paranasal sinuses are clear. No air-fluid levels. The mastoids and orbits appear within limits. CT/Brain/Head without Contrast IMPRESSION: No intracranial hemorrhage, mass effect or calvarial fracture. Moderate volume loss, atrophy again noted. Mild left maxillary sinus disease appears mildly decreased from the prior study . Reading Location: [id number]
[2025-01-02 04:09] LABS: Mucous, Urine 0 SEEN /hpf (<or=2+); Squamous Epithelial Cells - UA 0 SEEN /hpf (0-5)
[2025-01-02 04:15] LABS: Color, Urine Red (Yellow); Glucose, Dipstick Normal (Normal); Ketone-Dipstick 5 mg/dl (Negative); Leukocyte Esterase-Dipstick 500 /ul (Negative); Nitrite-Dipstick Negative (Negative); Occult Blood-Urine 250 /ul (Negative); Protein-Dipstick 100 mg/dl (Negative); Specific Gravity, Urine 1.015 (1.002-1.030); Urine Bilirubin Dipstick Negative (Negative); Urine Clarity Turbid (Clear); Urine Urobilinogen Normal (Normal)
[2025-01-02 04:16] LABS: Lipase 45 U/L (13-75)
[2025-01-02 04:17] LABS: Differential Indicated SCAN CRITERIA MET
[2025-01-02 04:20] LABS: ALB/GLOB Ratio 0.8 RATIO (0.9-2.4); AST(SGOT) 37 U/L (<=37); Alanine Aminotransfer ALT/SGPT 23 U/L (<=46); Albumin, Serum 2.8 g/dL (3.5-5.0); Alkaline Phosphatase 191 U/L (40-129); Anion Gap 17 (5-15); BUN 46 mg/dL (4-19); BUN/Creat Ratio 12.9 RATIO (10-20); Carbon Dioxide 19.6 mmol/L (21.0-32.0); Chloride 95 mmol/L (98-108); Creatinine, Serum 3.54 mg/dL (0.70-1.20); EST Glomerular Filtration Rate 19 (>60); Estimated Creatinine Clearance 22.75 ml/min (50-250); Globulin 3.4 g/dL (2.2-4.2); Glucose 164 mg/dL (70-99); Potassium 2.6 mmol/L (3.3-5.1); Protein, Total 6.1 g/dL (5.9-8.4); Sodium Level 132 mmol/L (133-145)
[2025-01-02 04:39] LABS: Bacteria 3+ /hpf (None Seen); Red Blood Cells-Urine > 100 SEEN /hpf (0-5); White Blood Cells 25-50 SEEN /hpf (0-5)
[2025-01-02] MEDS: Potassium Chloride 10mEq/100mL 10 MEQ/100 ML IV.SOLN. 100 MEQ IV BOLUS ×4 (05:10→11:04)
[2025-01-02] MEDS: Potassium Chloride Oral Soln 20 MEQ/15 ML UDC 40 MEQ PO (05:11)
--- NOTE | 2025-01-02 05:26 | EX.ED.DYSGE1 ---
HPI History of Present Illness Chief Complaint: Weakness Narrative Narrative: Patient is a 59-year-old male past medical history of hypertension, hyperlipidemia, thrombocytopenia, diabetes, hepatic encephalopathy, type 2 diabetes, hyponatremia who presents to the emergency department the chief complaint of fall and weakness. Patient states that he had a fall earlier today and he states that he does not think he hit his head but cannot exactly recall. He states that he feels extremely weak and notes that he has had vomiting for 2 days as well. He states that he was here recently and was sent home. [facility] Medical History Weakness Diarrhea Sepsis Acidosis, lactic Acute hypotension Acute UTI Chronic hypotension Obesity (BMI 30-39.9) Chronic back pain ISABEL (acute kidney injury) Hypotension Hepatic encephalopathy Hyperbilirubinemia Liver cirrhosis secondary to HARRIS (nonalcoholic steatohepatitis) HLD (hyperlipidemia) HTN (hypertension) Thrombocytopenia Chronic anemia Former tobacco use Diabetes mellitus, type 2 ABBY on CPAP Back pain Home Medications ?Medication ?Instructions ?Recorded ?Last Taken ?Type rifaximin 550 mg tablet (Xifaxan) 550 mg PO BID diarrhea #60 tabs 09/02/24 11/28/24 Rx insulin lispro 100 unit/mL See Protocol subcut ACHS diabetes 09/14/24 Unknown Rx subcutaneous pen (Humalog KwikPen #0 mL (U-100) Insulin) acetaminophen 500 mg tablet 1,000 mg PO Q8 PRN fever or pain 10/28/24 Unknown History calcium 500 mg (as 1 tab PO DAILY supplement 10/28/24 11/28/24 History carbonate)-vitamin D3 5 mcg (200 unit) tablet (Oyster Shell Calcium-Vitamin D3) folic acid 1 mg tablet 1 mg PO DAILY supplement 10/28/24 11/28/24 History atorvastatin 40 mg tablet 40 mg PO DAILY cholesterol 11/21/24 11/27/24 History furosemide 20 mg tablet 40 mg PO DAILY diuretic 11/21/24 11/28/24 History magnesium oxide 400 mg (241.3 mg 400 mg PO DAILY supplement 11/21/24 11/28/24 History magnesium) tablet metformin 500 mg tablet,extended 500 mg PO QPM diabetes 11/21/24 11/27/24 History release 24 hr pantoprazole 20 mg tablet,delayed 20 mg PO DAILY reflux 11/21/24 11/28/24 History release sodium bicarbonate 650 mg tablet 650 mg PO BID supplement 11/21/24 11/28/24 History spironolactone 50 mg tablet 50 mg PO DAILY diuretic 11/21/24 11/28/24 History thiamine HCl (vitamin B1) 100 mg 100 mg PO DAILY supplement 11/21/24 Unknown History tablet zinc sulfate 50 mg zinc (220 mg) 50 mg PO DAILY supplement 11/21/24 11/28/24 History tablet ascorbic acid (vitamin C) 500 mg 500 mg PO BID vitamin #60 tabs 11/25/24 11/28/24 Rx tablet midodrine 10 mg tablet 10 mg PO TID blood pressure 1 11/25/24 Unknown Rx month #90 tabs lactulose 10 gram/15 mL oral 15 ml PO TID PRN constipation 11/28/24 Unknown History solution (Constulose) L.acidophil,salivari-Bifido 1 cap PO TID #120 caps 12/02/24 Unknown Rx bifidum-Strep thermoph 175 mg capsule potassium, sodium phosphates 280 1 packet PO BID #100 ea 12/02/24 Unknown Rx mg-160 mg-250 mg oral powder packet vancomycin 125 mg capsule 125 mg PO Q6H 35 days #56 caps 12/02/24 Unknown Rx levofloxacin 500 mg tablet 500 mg PO DAILY infection 2 days 12/26/24 Unknown Rx #4 tabs cephalexin 500 mg capsule 500 mg PO TID 7 days #21 caps 12/30/24 Unknown Rx Allergy/AdvReac Type Severity Reaction Status Date / Time No Known Allergies Allergy Verified 01/02/25 03:00 Family History Mother Heart disease Hypertension CAD (coronary artery disease) Myocardial infarction Father Hypertension Heart disease Heart failure Surgical History History of tonsillectomy and adenoidectomy Social History household members: significant other Smoking Status: Former smoker how long ago did patient quit smoking: Quit ~ 3-4 months prior (fall 2023), smoked 1.5 ppd since teen until quit. alcohol intake: never substance use type: does not use ROS ROS ED ROS Narrative Constitutional: Denies fevers, chills, headaches Eyes: Denies change in vision double vision blurred vision Cardiovascular: Denies chest pain Respiratory: Denies shortness of breath Abdomen: Complains of nausea and vomiting as noted above : Denies urinary symptoms Neurological: Complains of generalized weakness denies any numbness or tingling Musculoskeletal: Denies back pain Skin: Denies any rashes or lesions EXAM Physical Exam Narrative Exam Narrative: General: Patient lying in bed rest comfortably did not be to be in acute distress Head: Atraumatic, normocephalic Eyes: PERRL bilateral, EOMI bilateral, no conjunctival injection noted Neck: Soft and supple, trach midline Cardiovascular: Regular rate and rhythm Respiratory: Clear to auscultation bilaterally Abdomen: Soft, diffuse tenderness to palpation no rebound or guarding on exam Extremities: +4/5 strength noted in the bilateral upper and lower extremities, radial pulses +2/4 in the bilateral extremities Neurological: Patient following commands that he was at [facility] that we were in the end of December going into January Skin: Warm, dry, intact Const Vital Signs: 01/02/25 02:59 01/02/25 02:59 01/02/25 04:59 Temperature 98.5 F Temperature Source Oral Pulse Rate 72 68 Respiratory Rate 18 16 Respiratory Effort Normal Respiratory Pattern Normal Blood Pressure 97/68 115/57 L Blood Pressure Mean 77 76 Pulse Ox 98 Oxygen Delivery Method Room Air MDM MDM MDM Narrative Medical decision making narrative: Patient is a 51-year-old male who presented to the emergency department with chief complaint of fall and generalized weakness. On the differential diagnose includes but not limited to ACS, pneumonia, electrolyte abnormality, UTI. Once workup is obtained reviewed he will be reevaluated. Patient be given 30 cc/kg bolus of IV fluids. Previous records were reviewed the patient was just here on 12/26/2024 and 12/30/2024 was ultimately diagnosed with UTI and given a gram of Rocephin was sent home on oral antibiotics. The culture result was reviewed which showed GPC poss Enterococcus 1000 10,000 CFU per mL with mixed gram-positive organisms as well 25,000-50,000 CFU per mL Patient CBC was reviewed and was significant for leukocytosis of 12,000, hemoglobin 9.5, platelet count was 171. Patient's sodium was 132, potassium low at 2.6 he will be given 40 mill equivalents orally and 40 mill equivalents intravenously, patient anion gap of 17, creatinine was elevated to too 3.54 which is up from 12/30/2024. Patient's magnesium level pending, AST and ALT normal at 37 and 23 respectively. Patient lipase normal at 45, urinalysis reviewed and appears to be worsening with 500 leukocyte esterase with 25-50 white cells and 3+ bacteria he will be given dose of Zosyn. Patient CT head and brain without contrast was reviewed and showed no acute intracranial hemorrhage mass effect or calvarial fracture moderate volume loss atrophy again noted. Mild left maxillary sinus disease mildly decreased from the prior study. Patient CT cervical spine reviewed showed no fracture or malalignment multilevel spondylitic discogenic change greatest at C5-C6. CT abdomen/pelvis without contrast reviewed and showed no evidence of acute intra-abdominal traumatic injury., Similar appearance of cirrhosis splenomegaly and varices. Left double-J ureteral stent again appears in place with similar appearance of a large left renal staghorn and some associated left pelvic atelectasis unchanged. Multilevel vertebral compression deformities not significantly changed in appearance. Patient given 4.5 g of Zosyn at 4:45 AM. Reperfusion assessment was performed and patient remains normotensive no vasopressors indicated. Patient's case will be discussed with hospitalist for admission for his generalized weakness, ISABEL, UTI. Discussed case with hospitalist Dr. Fuchs who accept patient for admission. Patient notified is agreeable to plan all questions answered. Lab Data Labs: Laboratory Results - last 24 hr 01/02/25 01/02/25 01/02/25 03:30 03:54 04:18 WBC 12.7 H RBC 3.21 L Hgb 9.5 L Hct 28.0 L MCV 87.2 MCH 29.6 MCHC 33.9 RDW Std Deviation 51.1 H RDW Coeff of Francis 16.4 H Plt Count 171 MPV 12.1 H Immature Gran % (Auto) 0.600 Neut % (Auto) 68.0 Lymph % (Auto) 12.2 L [place] % (Auto) 11.9 H Eos % (Auto) 6.9 H Baso % (Auto) 0.4 Absolute Neuts (auto) 8.6 H Absolute Lymphs (auto) 1.55 Nucleated RBC % 0 Sodium 132 L Potassium 2.6 L* Chloride 95 L Carbon Dioxide 19.6 L Anion Gap 17 H BUN 46 H Creatinine 3.54 H Estim Creat Clear Calc 22.75 L Est GFR (MDRD) Non-Af 19 L BUN/Creatinine Ratio 12.9 Glucose 164 H Calcium 9.0 Magnesium 2.0 Total Bilirubin 0.90 AST 37 ALT 23 Alkaline Phosphatase 191 H Total Protein 6.1 Albumin 2.8 L Globulin 3.4 Albumin/Globulin Ratio 0.8 L Lipase 45 Urine Color Red Urine Clarity Turbid Urine pH 6.0 Ur Specific [place] 1.015 Urine Protein 100 H Urine Glucose (UA) Normal Urine Ketones 5 H Urine Occult Blood 250 H Urine Nitrite Negative Urine Bilirubin Negative Urine Urobilinogen Normal Ur Leukocyte Esterase 500 H Urine RBC > 100 SEEN Urine WBC 25-50 SEEN Ur Squamous Epith Cells 0 SEEN Urine Bacteria 3+ Urine Mucus 0 SEEN Ethyl Alcohol < 10.1 Radiography Diagnostic Testing: Clinical Impression(s) from Imaging Studies Abdomen/Pelvis CT 01/02/25 03:45 IMPRESSION: No evidence of acute intra-abdominal traumatic injury on noncontrast imaging. Similar appearance of cirrhosis, splenomegaly and varices and cholelithiasis as above. Left double-J ureteral stent again appears in place with similar appearance of the large left renal staghorn and some associated left pelvicaliectasis, unchanged. Multilevel vertebral compression deformities are not significantly changed in appearance. A linear area of sclerosis left sacrum suggesting insufficiency fracture again noted, unchanged. Reading Location: [facility] Brain CT 01/02/25 03:55 IMPRESSION: No intracranial hemorrhage, mass effect or calvarial fracture. Moderate volume loss, atrophy again noted. Mild left maxillary sinus disease appears mildly decreased from the prior study. Reading Location: [facility] Cervical Spine CT 01/02/25 03:55 IMPRESSION: No fracture or malalignment. Multilevel spondylosis/discogenic change greatest at C5-6 Reading Location: [facility] Discharge Plan Triage Chief Complaint: Weakness ED Provider: Roddy Reeves Dx/Rx/DC Orders Clinical Impression: Hypokalemia, Generalized weakness, Urinary tract infection, Acute kidney injury, Fall Prescriptions: No Action Xifaxan 550 mg Tablet 550 mg PO BID Qty: 60 0RF insulin lispro [Humalog KwikPen Insulin] 100 unit/mL Insulin Pen See Protocol subcut ACHS Qty: 0 0RF Protocol: 4. Sliding Scale Insulin High-Med Dosing Condition: 150-199 mg/dl = 2 units Condition: 200-259 mg/dl = 4 units Condition: 260-324 mg/dl = 6 units Condition: 325-374 mg/dl = 8 units Condition: 375-409 mg/dl = 10 units Condition: 410-449 mg/dl = 11 units Condition: Greater than 449 call physician Protocol Text: Suggested for: - Patients on Total Daily Insulin Dose of 56-80 units - Patient who are known to be insulin resistant or septic HIGH MEDIUM DOSING ALGORITHM Patient Comments: PT DOESNT TAKE OFTEN folic acid 1 mg tablet 1 mg PO DAILY calcium carbonate-vitamin D3 [Oyster Shell Calcium-Vit D3] 500 mg-5 mcg (200 unit) tablet 1 tab PO DAILY acetaminophen 500 mg Tablet 1,000 mg PO Q8 PRN (Reason: fever or pain) atorvastatin 40 mg tablet 40 mg PO DAILY furosemide 20 mg tablet 40 mg PO DAILY magnesium oxide 400 mg (241.3 mg magnesium) tablet 400 mg PO DAILY sodium bicarbonate 650 mg tablet 650 mg PO BID metformin 500 mg tablet extended release 24 hr 500 mg PO QPM spironolactone 50 mg tablet 50 mg PO DAILY thiamine HCl (vitamin B1) 100 mg tablet 100 mg PO DAILY pantoprazole 20 mg tablet,delayed release (DR/EC) 20 mg PO DAILY zinc sulfate 50 mg zinc (220 mg) tablet 50 mg PO DAILY midodrine 10 mg tablet 10 mg PO TID 30 Days Qty: 90 0RF Rx Instructions: do not give last dose of day after 6PM or within 4 hrs of bedtime ascorbic acid (vitamin C) 500 mg tablet 500 mg PO BID Qty: 60 2RF lactulose [Constulose] 10 gram/15 mL solution 15 ml PO TID PRN (Reason: constipation) Patient Comments: HASNT HAD TO TAKE Rx Instructions: Goal to have 2 soft bowel movements per day vancomycin 125 mg capsule 125 mg PO Q6H 35 Days Qty: 56 0RF Rx Instructions: 4x a day for 7 days, then 2x a day for 7 days, then 1x a day for 7 days, then 1x q48h for 14 days. L.acidoph,saliva-B.bif-S.therm 175 mg Capsule 1 cap PO TID Qty: 120 0RF potassium, sodium phosphates 280-160-250 mg Powder In Packet 1 packet PO BID Qty: 100 0RF levofloxacin 500 mg tablet 500 mg PO DAILY 2 Days Qty: 4 0RF cephalexin 500 mg capsule 500 mg PO TID 7 Days Qty: 21 0RF Primary Care Provider: Josy Elias Referrals: Josy Elias, [employer] [Primary Care Provider] - Print Language: Honduran Disposition Disposition: Acute Care Hospital [facility]
[2025-01-02] MEDS: Piperacil/Tazobactam 4.5 GM in 0.9% Normal Saline (100mL MB+) 100 ML IV (05:28)
[2025-01-02 05:56] LABS: Alcohol, Blood (Medical)-Serum < 10.1 mg/dL (<=10.0)
--- NOTE | 2025-01-02 05:56 | PCM.HP.STD ---
HPI - General General Date of Admission: 01/02/25 HPI Narrative FRANKLIN ARCHULETA, is a 59 M who presents to the hospital with weakness and a fall. He did not hit his head or lose consciousness. He has had an extensive recent medical history with cirrhosis and UTI with staghorn calculus, he was in the ICU in October. 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 Was not considered to be a liver transplant candidate and was placed on anticoagulation. He has had a couple of readmissions for weakness and debility. [place] to possibly have a UTI given a staghorn calculus in his stent, I do think that his urine is always can appear contaminated and given his recent history with C. difficile not necessarily an antibiotic candidate. He is demonstrating signs of renal failure with creatinine of 3.54, during his previous evaluations at this hospital his renal function was normal at 0.8 but he has steadily been climbing since the beginning of December. He is on I believe Lasix and Aldactone for his cirrhosis. He is also hypokalemic, he is on lactulose so aside from the diarrhea he says that he has been having it couple episodes of vomiting over the last couple days. He is receiving potassium infusion in the ER. [facility] Medical History Weakness Diarrhea Sepsis Acidosis, lactic Acute hypotension Acute UTI Chronic hypotension Obesity (BMI 30-39.9) Chronic back pain ISABEL (acute kidney injury) Hypotension Hepatic encephalopathy Hyperbilirubinemia Liver cirrhosis secondary to HARRIS (nonalcoholic steatohepatitis) HLD (hyperlipidemia) HTN (hypertension) Thrombocytopenia Chronic anemia Former tobacco use Diabetes mellitus, type 2 ABBY on CPAP Back pain Home Medications ?Medication ?Instructions ?Recorded ?Last Taken ?Type rifaximin 550 mg tablet (Xifaxan) 550 mg PO BID diarrhea #60 tabs 09/02/24 11/28/24 Rx insulin lispro 100 unit/mL See Protocol subcut ACHS diabetes 09/14/24 Unknown Rx subcutaneous pen (Humalog KwikPen #0 mL (U-100) Insulin) acetaminophen 500 mg tablet 1,000 mg PO Q8 PRN fever or pain 10/28/24 Unknown History calcium 500 mg (as 1 tab PO DAILY supplement 10/28/24 11/28/24 History carbonate)-vitamin D3 5 mcg (200 unit) tablet (Oyster Shell Calcium-Vitamin D3) folic acid 1 mg tablet 1 mg PO DAILY supplement 10/28/24 11/28/24 History atorvastatin 40 mg tablet 40 mg PO DAILY cholesterol 11/21/24 11/27/24 History furosemide 20 mg tablet 40 mg PO DAILY diuretic 11/21/24 11/28/24 History magnesium oxide 400 mg (241.3 mg 400 mg PO DAILY supplement 11/21/24 11/28/24 History magnesium) tablet metformin 500 mg tablet,extended 500 mg PO QPM diabetes 11/21/24 11/27/24 History release 24 hr pantoprazole 20 mg tablet,delayed 20 mg PO DAILY reflux 11/21/24 11/28/24 History release sodium bicarbonate 650 mg tablet 650 mg PO BID supplement 11/21/24 11/28/24 History spironolactone 50 mg tablet 50 mg PO DAILY diuretic 11/21/24 11/28/24 History thiamine HCl (vitamin B1) 100 mg 100 mg PO DAILY supplement 11/21/24 Unknown History tablet zinc sulfate 50 mg zinc (220 mg) 50 mg PO DAILY supplement 11/21/24 11/28/24 History tablet ascorbic acid (vitamin C) 500 mg 500 mg PO BID vitamin #60 tabs 11/25/24 11/28/24 Rx tablet midodrine 10 mg tablet 10 mg PO TID blood pressure 1 11/25/24 Unknown Rx month #90 tabs lactulose 10 gram/15 mL oral 15 ml PO TID PRN constipation 11/28/24 Unknown History solution (Constulose) L.acidophil,salivari-Bifido 1 cap PO TID #120 caps 12/02/24 Unknown Rx bifidum-Strep thermoph 175 mg capsule potassium, sodium phosphates 280 1 packet PO BID #100 ea 12/02/24 Unknown Rx mg-160 mg-250 mg oral powder packet vancomycin 125 mg capsule 125 mg PO Q6H 35 days #56 caps 12/02/24 Unknown Rx levofloxacin 500 mg tablet 500 mg PO DAILY infection 2 days 12/26/24 Unknown Rx #4 tabs cephalexin 500 mg capsule 500 mg PO TID 7 days #21 caps 12/30/24 Unknown Rx Allergy/AdvReac Type Severity Reaction Status Date / Time No Known Allergies Allergy Verified 01/02/25 03:00 Family History Mother Heart disease Hypertension CAD (coronary artery disease) Myocardial infarction Father Hypertension Heart disease Heart failure Surgical History History of tonsillectomy and adenoidectomy Social History household members: significant other Smoking Status: Former smoker how long ago did patient quit smoking: Quit ~ 3-4 months prior (fall 2023), smoked 1.5 ppd since teen until quit. alcohol intake: never substance use type: does not use ROS Constitutional Constitutional: Reports weakness; Denies chills, fatigue, fever(s) or malaise Eyes Eyes: Denies blurry vision ENT HEENT: Denies headache(s) or nasal discharge Cardiovascular Cardiovascular: Denies chest pain, dyspnea on exertion or syncope Respiratory/Chest Respiratory/Chest: Denies cough, shortness of breath at rest or shortness of breath with exertion Gastrointestinal Gastrointestinal: Reports vomiting; Denies constipation, diarrhea or nausea Genitourinary Genitourinary: Denies dysuria Neurologic Neurologic: Denies focal weakness, numbness or tremor(s) Psychiatric Psychiatric: Denies anxiety or depression Vital Signs Vital Signs Vital Signs: 01/02/25 02:59 01/02/25 02:59 01/02/25 04:59 Temperature 98.5 F Temperature Source Oral Pulse Rate 72 68 Respiratory Rate 18 16 Respiratory Effort Normal Respiratory Pattern Normal Blood Pressure 97/68 115/57 L Blood Pressure Mean 77 76 Pulse Ox 98 Oxygen Delivery Method Room Air Weight Weight: 186 lb 4.65 oz Body Mass Index (BMI) 27.5 Physical Exam Narrative General: Alert, Oriented x3, Cooperative, No apparent distress HEENT: Atraumatic, PERRLA, EOMI, Normocephalic Oral: Moist Mucosa, poor dentition Neck: Supple, No JVD Lungs: Diminished, Normal air movement, No rhonchi, No wheeze, No rales Cardiovascular: Regular rate, Regular Rhythm, Normal S1, Normal S2, No murmurs Abdomen: Soft, Non Tender, Non-Distended, No Hepato-splenomegaly Extremities: Edema, Capillary Refill Less than 3 Seconds Skin: No rashes, No breakdown Musculoskeletal: Tenderness to palpation of his mid left thigh from his frequent falls over the last couple days Neurological: No focal neurological deficits, moves all extremities Psych/Mental Status: Normal Affect, Appropriate Results Lab / Micro Data 01/02/25 03:30 01/02/25 03:30 Labs: Laboratory Results - last 24 hr 01/02/25 03:30: WBC 12.7 H, RBC 3.21 L, Hgb 9.5 L, Hct 28.0 L, MCV 87.2, MCH 29.6, MCHC 33.9, RDW Std Deviation 51.1 H, RDW Coeff of Francis 16.4 H, Plt Count 171, MPV 12.1 H, Immature Gran % (Auto) 0.600, Neut % (Auto) 68.0, Lymph % (Auto) 12.2 L, [place] % (Auto) 11.9 H, Eos % (Auto) 6.9 H, Baso % (Auto) 0.4, Absolute Neuts (auto) 8.6 H, Absolute Lymphs (auto) 1.55, Nucleated RBC % 0, Sodium 132 L, Potassium 2.6 L*, Chloride 95 L, Carbon Dioxide 19.6 L, Anion Gap 17 H, BUN 46 H, Creatinine 3.54 H, Estim Creat Clear Calc 22.75 L, Est GFR (MDRD) Non-Af 19 L, BUN/Creatinine Ratio 12.9, Glucose 164 H, Calcium 9.0, Total Bilirubin 0.90, AST 37, ALT 23, Alkaline Phosphatase 191 H, Total Protein 6.1, Albumin 2.8 L, Globulin 3.4, Albumin/Globulin Ratio 0.8 L, Lipase 45 01/02/25 03:54: Urine Color Red, Urine Clarity Turbid, Urine pH 6.0, Ur Specific [place] 1.015, Urine Protein 100 H, Urine Glucose (UA) Normal, Urine Ketones 5 H, Urine Occult Blood 250 H, Urine Nitrite Negative, Urine Bilirubin Negative, Urine Urobilinogen Normal, Ur Leukocyte Esterase 500 H, Urine RBC > 100 SEEN, Urine WBC 25-50 SEEN, Ur Squamous Epith Cells 0 SEEN, Urine Bacteria 3+, Urine Mucus 0 SEEN 01/02/25 04:18: Ethyl Alcohol < 10.1 Imaging Radiology Impression Abdomen/Pelvis CT 01/02/25 03:45 IMPRESSION: No evidence of acute intra-abdominal traumatic injury on noncontrast imaging. Similar appearance of cirrhosis, splenomegaly and varices and cholelithiasis as above. Left double-J ureteral stent again appears in place with similar appearance of the large left renal staghorn and some associated left pelvicaliectasis, unchanged. Multilevel vertebral compression deformities are not significantly changed in appearance. A linear area of sclerosis left sacrum suggesting insufficiency fracture again noted, unchanged. Reading Location: [facility] Brain CT 01/02/25 03:55 IMPRESSION: No intracranial hemorrhage, mass effect or calvarial fracture. Moderate volume loss, atrophy again noted. Mild left maxillary sinus disease appears mildly decreased from the prior study. Reading Location: [facility] Cervical Spine CT 01/02/25 03:55 IMPRESSION: No fracture or malalignment. Multilevel spondylosis/discogenic change greatest at C5-6 Reading Location: [facility] Assessment & Plan Assessment/Plan (1) Fall: (2) Acute kidney injury: PLAN: Plan 1. Weakness and debility with a fall in the setting of significant hypokalemia and renal failure and severe hypokalemia ? He has a staghorn calculus on the left with left ureteral stent ? Continue with gentle hydration given his history of cirrhosis ? Urine was a little bit dirty on his previous evaluation in the emergency room however he was not clinically significant based on colony-forming units and given his history of C. difficile we will hold off antibiotics, he did receive a dose of Zosyn in the emergency room. He had been discharged on 7 days of Keflex on 12/30/2024 and he had been discharged on 4 days of Levaquin on 12/26/2024 from the emergency room ? PT/OT for evaluation 2. Cirrhosis due to NAFLD/GERD/extensive portal vein thrombosis ? Can resume his home liver medications when verified ? Given his renal failure we will hold off of any Lasix or Aldactone ? Can resume his PPI when verified ? Can resume his home anticoagulation when verified 3. C. difficile colitis ? He was placed on a prolonged taper which she should be close to completing, can resume once verified 4. DM2 ? Will hold his home metformin ? Continue with sliding scale insulin ? Accu-Cheks ACHS ? Will monitor make adjustments as necessary DVT: Home anticoagulation once verified Charges/Coding Visit Charges Inpatient E&M: 63017 Init Hosp L2
[2025-01-02 07:00] LABS: Ammonia 40.4 umol/L (16-60)
--- NOTE | 2025-01-02 07:36 | PCM.PN.HOSP ---
Reason for Visit Reason for Visit: Diagnoses Acute kidney failure, unspecified (01/02/25) Unspecified fall, initial encounter (01/02/25) Subjective Subjective Patient is a 59-year-old gentleman with recent multiple hospitalization presented to the emergency department with progressive generalized weakness and vomiting. This was apparently his third visit to the ED within a week. Patient had been encouraged to be discharged to a senior living facility he however declined. Objective Data Objective Data Vital Signs: Vital Signs Temp Pulse Resp BP Pulse Ox O2 Del Method 97.8 F 68 20 H 105/73 100 Room Air 01/02/25 06:34 01/02/25 06:34 01/02/25 06:34 01/02/25 06:34 01/02/25 06:34 01/02/25 06:00 Oxygen Delivery Method Room Air Weight: 84.5 kg Body Mass Index (BMI) 27.5 Intake & Output: Intake and Output for Last 24 Hours 12/31/24 01/01/25 01/02/25 23:59 23:59 23:59 Intake Total 1200 / 1200 Balance 1200 / 1200 Lab / Micro Data 01/02/25 03:30 01/02/25 03:30 Labs: Laboratory Results - last 24 hr 01/02/25 03:30: WBC 12.7 H, RBC 3.21 L, Hgb 9.5 L, Hct 28.0 L, MCV 87.2, MCH 29.6, MCHC 33.9, RDW Std Deviation 51.1 H, RDW Coeff of Francis 16.4 H, Plt Count 171, MPV 12.1 H, Immature Gran % (Auto) 0.600, Neut % (Auto) 68.0, Lymph % (Auto) 12.2 L, [place] % (Auto) 11.9 H, Eos % (Auto) 6.9 H, Baso % (Auto) 0.4, Absolute Neuts (auto) 8.6 H, Absolute Lymphs (auto) 1.55, Nucleated RBC % 0, Sodium 132 L, Potassium 2.6 L*, Chloride 95 L, Carbon Dioxide 19.6 L, Anion Gap 17 H, BUN 46 H, Creatinine 3.54 H, Estim Creat Clear Calc 22.75 L, Est GFR (MDRD) Non-Af 19 L, BUN/Creatinine Ratio 12.9, Glucose 164 H, Calcium 9.0, Magnesium 2.0, Total Bilirubin 0.90, AST 37, ALT 23, Alkaline Phosphatase 191 H, Total Protein 6.1, Albumin 2.8 L, Globulin 3.4, Albumin/Globulin Ratio 0.8 L, Lipase 45 01/02/25 03:54: Urine Color Red, Urine Clarity Turbid, Urine pH 6.0, Ur Specific [place] 1.015, Urine Protein 100 H, Urine Glucose (UA) Normal, Urine Ketones 5 H, Urine Occult Blood 250 H, Urine Nitrite Negative, Urine Bilirubin Negative, Urine Urobilinogen Normal, Ur Leukocyte Esterase 500 H, Urine RBC > 100 SEEN, Urine WBC 25-50 SEEN, Ur Squamous Epith Cells 0 SEEN, Urine Bacteria 3+, Urine Mucus 0 SEEN 01/02/25 04:18: Ethyl Alcohol < 10.1 01/02/25 05:50: Ammonia 40.4 Radiography Diagnostic Testing: Radiology Impression Abdomen/Pelvis CT 01/02/25 03:45 IMPRESSION: No evidence of acute intra-abdominal traumatic injury on noncontrast imaging. Similar appearance of cirrhosis, splenomegaly and varices and cholelithiasis as above. Left double-J ureteral stent again appears in place with similar appearance of the large left renal staghorn and some associated left pelvicaliectasis, unchanged. Multilevel vertebral compression deformities are not significantly changed in appearance. A linear area of sclerosis left sacrum suggesting insufficiency fracture again noted, unchanged. Reading Location: [facility] Brain CT 01/02/25 03:55 IMPRESSION: No intracranial hemorrhage, mass effect or calvarial fracture. Moderate volume loss, atrophy again noted. Mild left maxillary sinus disease appears mildly decreased from the prior study. Reading Location: [facility] Cervical Spine CT 01/02/25 03:55 IMPRESSION: No fracture or malalignment. Multilevel spondylosis/discogenic change greatest at C5-6 Reading Location: [facility] Physical Exam Narrative GENERAL: cooperative HEENT: Atraumatic; normocephalic EYES; Anicteric, Normal Conjunctiva NECK; supple, normal thyroid, RESPIRATORY: Diminished to auscultation CARDIOVASCULAR: Regular S1 S2, GI: soft, normoactive bowel sounds, : No Renal angle tenderness; EXTREMITIES: No edema, no clubbing, MUSCULOSKELETAL: no muscle wasting NEURO: Awake; no lateralizing signs. SKIN: No rash PSYCH; Flat affect Assessment & Plan Assessment/Plan (1) Fall: (2) Acute kidney injury: PLAN: Plan Patient is a 59-year-old gentleman with recent multiple hospitalization presented to the emergency department with progressive generalized weakness and vomiting. This was apparently his third visit to the ED within a week. 1. Physical deconditioning/debility ? Secondary to multiple medical comorbidities. Transfer to senior living facility had been recommended to patient during previous hospitalization he did decline. I had a discussion with patient he is amenable to entertaining the idea of going to senior living facility. Subsequently requested for PT OT eval and licensed social worker to assist with discharge planning 2. Severe hypokalemia ? Patient potassium level on admission was 2.6. Admitted to a monitored bed for close monitoring. Patient potassium corrected per protocol repeat labs ordered for response to therapy 3. Recurrent UTI ? Patient recently treated with Levaquin after being seen in the ED 4. Recurrent C. difficile colitis ? Patient is on long p.o. vancomycin taper 5. Cirrhosis of the liver ? Secondary to nonalcoholic fatty liver disease patient is on Aldactone, rifaximin as well as lactulose, patient is followed by GI as outpatient 6. Extensive portal vein thrombosis ? Patient was transferred to a tertiary care center and discharged on Lovenox. Patient however did not tolerate systemic anticoagulation due to recurrent GI bleed 7. Diabetes mellitus type 2 Patient was on metformin held did continue with Accu-Cheks ACHS with sliding scale coverage 8. GERD ? On PPI 9. Obstructive sleep apnea ? Consistent use of CPAP encouraged 10. Chronic hypotension ? Patient is on midodrine 11. Dyslipidemia ?Patient is on statin therapy, continued at home dose 12. Hyponatremia ? Secondary to cirrhosis of the liver monitoring 13. Anemia ? Secondary to chronic disorder as well as chronic blood loss anemia, monitoring H&H and transfuse if patient becomes symptomatic or hemoglobin falls below 7 14. DVT prophylaxis ? Bilateral SCDs for Time spent in the patient's overall evaluation,decision-making process, review of diagnostic data, adjustment of management, discussion with other providers, nursing nursing and ancillary staff involved in patient's care documentation, 38 Minutes Charges/Coding Visit Charges Inpatient E&M: 54250 PROLNG IP/OBS E/M EA 15 MIN Multi Select Codes Visit Charges Visit Charges: 38148 PROLNG IP/OBS E/M EA 15 MIN
[2025-01-02] MEDS: 0.9% Normal Saline (1000mL) 1,000 ML 75 ML IV ×2 (08:52→21:38)
[2025-01-02] MEDS: Insulin Lispro 100 UNIT/ML INSULN.PEN SC ×4 (08:55→21:37)
[2025-01-02 12:02] LABS: Bedside Glucose 188 mg/dL (74-106)
[2025-01-02 12:03] LABS: Bedside Glucose 245 mg/dL (74-106)
[2025-01-02 17:14] LABS: Bedside Glucose 363 mg/dL (74-106)
[2025-01-02 22:30] LABS: Bedside Glucose 354 mg/dL (74-106)
[2025-01-03 03:30] VITALS: BP 107/62; PULSE 69; RESP 16; TEMP 36.4; O2SAT 100; BMI 29.0
[2025-01-03 05:42] LABS: Absolute Lymphocyte Count 1.13 X10^3/uL (0.83-4.51); Absolute Neutrophil Count 5.5 X10^3/uL (2.0-7.7); Basophil# 0.02 X10^3/uL; Basophil% 0.2 % (0-1); Eosinophil# 0.52 X10^3/uL; Eosinophils% 6.4 % (0-5); Hematocrit 24.2 % (40-54); Lymphocyte # 1.13 X10^3/ul (0.83-4.51); Lymphocyte % 13.9 % (19-41); Mean Corp Hgb Conc 33.1 g/dL (32-36); Mean Corpuscular Volume 87.7 fL (80-94); Monocyte# 0.93 X10^3/uL; Monocyte% 11.5 % (0-10); NRBC Flagged by Analyzer 0 % (0-5); Neutrophil # 5.47 X10^3/uL (2.7-7.7); Neutrophil % 67.5 % (47-70); Platelet Count 115 K/mm3 (150-450); RBC Distribution Width CV 16.6 % (11.6-14.6); Red Blood Count 2.76 M/mm3 (4.6-6.2); White Blood Count 8.1 K/mm3 (4.4-11.0)
[2025-01-03] MEDS: Insulin Lispro 100 UNIT/ML INSULN.PEN SC ×4 (06:16→22:08)
[2025-01-03] MEDS: Midodrine HCl 5 MG Tablet 10 MG PO ×3 (06:16→17:08)
[2025-01-03 06:33] LABS: Anion Gap 11 (5-15); BUN 29 mg/dL (4-19); BUN/Creat Ratio 17.3 RATIO (10-20); Calcium,Total 8.1 mg/dL (7.6-11.0); Carbon Dioxide 18.2 mmol/L (21.0-32.0); Chloride 101 mmol/L (98-108); EST Glomerular Filtration Rate 46 (>60); Estimated Creatinine Clearance 52.32 ml/min (50-250); Glucose 351 mg/dL (70-99); Potassium 3.6 mmol/L (3.3-5.1); Sodium Level 130 mmol/L (133-145)
[2025-01-03 07:01] LABS: Bedside Glucose 322 mg/dL (74-106)
--- NOTE | 2025-01-03 08:39 | PN.HOSP_ITS ---
Reason for Visit Reason for Visit: Diagnoses Acute kidney failure, unspecified (01/02/25) Unspecified fall, initial encounter (01/02/25) Subjective Subjective Patient seen remains deconditioned. Sodium levels down to 130, creatinine did improve to 1.70 Objective Data Objective Data Vital Signs: Vital Signs Temp Pulse Resp BP Pulse Ox O2 Del Method 97.6 F L 69 16 107/62 100 Room Air 01/03/25 03:30 01/03/25 03:30 01/03/25 03:30 01/03/25 03:30 01/03/25 03:30 01/03/25 08:18 Oxygen Delivery Method Room Air Weight: 89.2 kg Body Mass Index (BMI) 29.0 Intake & Output: Intake and Output for Last 24 Hours 01/01/25 01/02/25 01/03/25 23:59 23:59 23:59 Intake Total 3137.5 / 3617.5 960 / 960 Output Total 725 / 1400 1275 / 1275 Balance 2412.5 / 2217.5 -315 / -315 Lab / Micro Data 01/03/25 05:29 01/03/25 05:29 Labs: Laboratory Results - last 24 hr 01/02/25 08:27: POC Glucose 188 H 01/02/25 11:05: POC Glucose 245 H 01/02/25 16:39: POC Glucose 363 H 01/02/25 21:36: POC Glucose 354 H 01/03/25 05:29: WBC 8.1, RBC 2.76 L, Hgb 8.0 L, Hct 24.2 L, MCV 87.7, MCH 29.0, MCHC 33.1, RDW Std Deviation 53.0 H, RDW Coeff of Francis 16.6 H, Plt Count 115 L, MPV 12.0, Immature Gran % (Auto) 0.500, Neut % (Auto) 67.5, Lymph % (Auto) 13.9 L, [place] % (Auto) 11.5 H, Eos % (Auto) 6.4 H, Baso % (Auto) 0.2, Absolute Neuts (auto) 5.5, Absolute Lymphs (auto) 1.13, Nucleated RBC % 0, Sodium 130 L, Potassium 3.6, Chloride 101, Carbon Dioxide 18.2 L, Anion Gap 11, BUN 29 H, C reatinine 1.70 H, Estim Creat Clear Calc 52.32, Est GFR (MDRD) Non-Af 46 L, BUN/Creatinine Ratio 17.3, Glucose 351 H, Calcium 8.1 01/03/25 06:15: POC Glucose 322 H Physical Exam Narrative GENERAL: cooperative HEENT: Atraumatic; normocephalic EYES; Anicteric, Normal Conjunctiva NECK; supple, normal thyroid, RESPIRATORY: Diminished to auscultation CARDIOVASCULAR: Regular S1 S2, GI: soft, normoactive bowel sounds, : No Renal angle tenderness; EXTREMITIES: No edema, no clubbing, MUSCULOSKELETAL: no muscle wasting NEURO: Awake; no lateralizing signs. SKIN: No rash PSYCH; Flat affect Assessment & Plan Assessment/Plan (1) Fall: (2) Acute kidney injury: PLAN: Plan Patient is a 59-year-old gentleman with recent multiple hospitalization presented to the emergency department with progressive generalized weakness and vomiting. This was apparently his third visit to the ED within a week. 1. Physical deconditioning/debility ? Secondary to multiple medical comorbidities. [facility] to [facility] had been recommended to patient during previous hospitalization he did decline. I had a discussion with patient he is amenable to entertaining the idea of going to [facility] facility. Subsequently requested for PT OT eval and oncology social work to assist with discharge planning 2. Severe hypokalemia ? Patient potassium level on admission was 2.6. Admitted to a monitored bed for close monitoring. Patient potassium corrected per protocol repeat labs ordered for response to therapy 3. Acute kidney injury ? Creatinine on admission 3.54 did improve to 1.70 we will continue with IV fluids 4. Recurrent UTI ? Patient recently treated with Levaquin after being seen in the ED 5. Recurrent C. difficile colitis ? Patient is on long p.o. vancomycin taper 6. Cirrhosis of the liver ? Secondary to nonalcoholic fatty liver disease patient is on Aldactone, rifaximin as well as lactulose, patient is followed by GI as outpatient 7. Extensive portal vein thrombosis ? Patient was transferred to a tertiary care center and discharged on Lovenox. Patient however did not tolerate systemic anticoagulation due to recurrent GI bleed 8. Diabetes mellitus type 2 Patient was on metformin held did continue with Accu-Cheks ACHS with sliding scale coverage ? 01/03/2025; patient blood glucose control not optimal adjusted insulin regimen 9. Hyponatremia ? Secondary to cirrhosis of the liver we will continue with monitor 10. GERD ? On PPI 11. Obstructive sleep apnea ? Consistent use of CPAP encouraged 12. Chronic hypotension ? Patient is on midodrine 13. Dyslipidemia ?Patient is on statin therapy, continued at home dose 14. Anemia ? Secondary to chronic disorder as well as chronic blood loss anemia, monitoring H&H and transfuse if patient becomes symptomatic or hemoglobin falls below 7 15. DVT prophylaxis ? Bilateral SCDs for Time spent in the patient's overall evaluation,decision-making process, review of diagnostic data, adjustment of management, discussion with other providers, nursing nursing and ancillary staff involved in patient's care documentation, 38 Minutes
[2025-01-03 09:48] VITALS: BP 103/62; PULSE 75; RESP 14; TEMP 36.4; O2SAT 100
[2025-01-03] MEDS: Folic Acid 1 MG Tablet PO (09:50)
[2025-01-03] MEDS: rifAXIMin 550 MG Tablet PO ×2 (09:51→22:12)
[2025-01-03] MEDS: Pantoprazole Sodium 20 MG Tablet PO (09:51)
[2025-01-03] MEDS: Na Biphos/Potassium Phosphate PACKET 1 PACKET PO ×2 (10:38→22:13)
[2025-01-03] MEDS: Spironolactone 50 MG Tablet 100 MG PO (10:38)
[2025-01-03] MEDS: Magnesium Chloride 64 MG Delay Rel.Tablet 128 MG PO (10:38)
[2025-01-03] MEDS: Furosemide 40 MG Tablet PO (10:38)
[2025-01-03] MEDS: Nadolol 20 MG Tablet PO (10:39)
[2025-01-03] MEDS: Sodium Bicarbonate 650 MG Tablet PO ×2 (10:39→22:13)
[2025-01-03] MEDS: Thiamine Hydrochloride 100 MG Tablet PO (10:40)
--- NOTE | 2025-01-03 11:21 | CASEMGMT ---
Social Work SDOH assessment completed, transportation resources provided. Pt states he was issued a free government phone but it does not work, was looking for help to get a new one. However pt does not remember who helped him get the phone, he thinks it was a SW here. SW reviewed all old SW/CM notes, and called Nicol also from [employer]. It does not appear that anyone here helped him w/this. Pt has been to [facility] and was to follow up at [facility] as well. SW spoke w/pt, explained it was nobody here, asked if it could have been the SW at [facility] or someone at [facility]. Pt states he never went to [facility] so it wasn't [facility]. He thought it may have been the SW at [facility]. SW called [facility] and left a message for the SW there. SW will speak w/the SW from [facility] should she return the call. Otherwise, SW advised pt to look at the return address on the package to try and figure out where the phone was from, and then he may need to google the company name for the phone number. Pt states he does still have the box that the phone was shipped to him. SW remains available for any additional social service needs. PIERRE Tobias
[2025-01-03] MEDS: 0.9% Normal Saline (1000mL) 1,000 ML 75 ML IV (11:30)
--- NOTE | 2025-01-03 11:36 | CASEMGMT ---
Discharge Planning A list of?SNF providers including quality and resource use data and consistent with the patient's preferred geographic region, medical needs, and insurance network was created in [employer] Guide.? This list was provided to the JEANNINE. India Platt, Discharge Planning Asst
--- NOTE | 2025-01-03 11:51 | CASEMGMT ---
RN CM notified SW that patient is agreeable to [facility]. SW met with patient. Introduced self. SW provided patient with a list of facilities. SW asked patient to review the list and pick 3 or 4 places he would be okay with. Hortencia ALCOCER
[2025-01-03 11:54] LABS: Bedside Glucose 338 mg/dL (74-106)
--- NOTE | 2025-01-03 12:11 | CASEMGMT ---
DAYSI HUGHES Assessment Face to Face with patient for initial transition planning/care coordination assessment. DAYSI HUGHES introduced self and role at [facility], pt voices understanding. Pt is A&Ox4 and is resting comfortably in bed and is calm. Care providers, pharmacy, and demographics verified. Admitting dx: Weakness, Possible UTI, Fall LACE Strata: 3 PCP: Josy Elias Specialists: Denies Preferred Pharmacy: [facility] Insurance: peerTransfer Prescription Benefit: Yes LNOK: Mary Robertson (SO - Lives in [place]), Leopoldo (Son - Lives in [place]) Living Arrangements: Pt lives with his ex- (Sylvia), Ex-'s SO and landlord (Jerald), and brother in law (Vikas) in a 2 story home with a FFSU now and a flat entrance ADLs/IADLs: Pt requires assistance and is agreeable to SNF at the time of DC Transportation: Jerald & Mary when able DME: Functioning B[employer] with sufficient supplies. BSC. FWW. Cane. Shower chair. Pt was provided with medical alert system resources and was encouraged to get established. HHC/SNF: Reports HH hx when he lived in [place]. Reports hx at [facility] but does not want to return Pt?s goal: Return to PLOF Plan: anticipate SNF at the time of DC. See PT/OT notes as well as the hospitalists. Pt states that he is agreeable and would like to review a list of options. PCU SW notified and to provide list. Pt denies further questions or concerns at this time. Tayla Galloway RN, CM
[2025-01-03] MEDS: Insulin Glargine-YFGN 100 UNIT/ML Pen 10 UNIT SC (13:43)
[2025-01-03] MEDS: Lactobacillis Acidophilus 1 CAP PO ×2 (13:45→22:12)
[2025-01-03 15:05] VITALS: BP 103/70; PULSE 74; RESP 14; TEMP 36.5; O2SAT 100
[2025-01-03] MEDS: Heparin Injection (Vial) 5,000 UNIT/ML VIAL 5000 UNIT SC ×2 (15:07→22:22)
[2025-01-03 17:09] LABS: Bedside Glucose 483 mg/dL (74-106)
[2025-01-03] MEDS: Insulin Lispro 100 UNIT/ML INSULN.PEN 10 UNIT SC (17:15)
[2025-01-03 19:15] VITALS: PULSE 74
[2025-01-03 22:03] VITALS: BP 101/61; PULSE 73; RESP 16; TEMP 37; O2SAT 98
[2025-01-03] MEDS: Insulin Glargine-YFGN 100 UNIT/ML Pen 20 UNIT SC (22:09)
[2025-01-03] MEDS: cycloBENZAPRine HCl 10 MG Tablet PO (22:12)
[2025-01-03] MEDS: Atorvastatin Calcium 40 MG Tablet PO (22:13)
[2025-01-03 23:07] VITALS: PULSE 78
[2025-01-03 23:26] LABS: Bedside Glucose 356 mg/dL (74-106)
[2025-01-04] MEDS: 0.9% Normal Saline (1000mL) 1,000 ML 75 ML IV ×2 (00:52→14:02)
[2025-01-04 03:01] VITALS: BMI 30.1
[2025-01-04 05:32] VITALS: BP 95/65; PULSE 73; RESP 16; TEMP 36.6; O2SAT 96
[2025-01-04] MEDS: Midodrine HCl 5 MG Tablet 10 MG PO ×3 (05:36→18:02)
[2025-01-04] MEDS: Lactobacillis Acidophilus 1 CAP PO ×3 (05:36→22:52)
[2025-01-04] MEDS: Heparin Injection (Vial) 5,000 UNIT/ML VIAL 5000 UNIT SC (05:36)
[2025-01-04 07:01] LABS: Bedside Glucose 331 mg/dL (74-106)
[2025-01-04] MEDS: Insulin Lispro 100 UNIT/ML INSULN.PEN SC ×4 (07:52→22:52)
[2025-01-04] MEDS: Insulin Lispro 100 UNIT/ML INSULN.PEN 10 UNIT SC ×3 (07:53→16:42)
[2025-01-04] MEDS: Ferrous Sulfate 325 MG Tablet PO (07:54)
[2025-01-04] MEDS: Folic Acid 1 MG Tablet PO (07:54)
[2025-01-04] MEDS: Calcium Carb/Vitamin D 1 TABLET Tablet PO (07:54)
[2025-01-04] MEDS: Spironolactone 50 MG Tablet 100 MG PO (09:20)
[2025-01-04] MEDS: Nadolol 20 MG Tablet PO (09:20)
[2025-01-04] MEDS: rifAXIMin 550 MG Tablet PO ×2 (09:21→22:53)
[2025-01-04] MEDS: Furosemide 40 MG Tablet PO (09:21)
[2025-01-04] MEDS: Pantoprazole Sodium 20 MG Tablet PO (09:21)
[2025-01-04] MEDS: Na Biphos/Potassium Phosphate PACKET 1 PACKET PO ×2 (09:21→22:53)
[2025-01-04] MEDS: Sodium Bicarbonate 650 MG Tablet PO ×2 (09:21→22:53)
[2025-01-04] MEDS: Magnesium Chloride 64 MG Delay Rel.Tablet 128 MG PO ×2 (09:21→22:53)
[2025-01-04] MEDS: Thiamine Hydrochloride 100 MG Tablet PO (09:21)
[2025-01-04] MEDS: Insulin Glargine-YFGN 100 UNIT/ML Pen 20 UNIT SC ×2 (09:22→22:52)
[2025-01-04] MEDS: Vancomycin 125 MG/5 ML Susp PO.SYRINGE PO (09:28)
--- NOTE | 2025-01-04 09:59 | CASEMGMT ---
Patient's significant other notified studio operations engineer in charge that patient would like to go to [facility]. SW asked India mcnally/cynthia community health planning director to please send a referral. Hortencia Fleming TEA BAG PACKER LEODAN
--- NOTE | 2025-01-04 10:06 | CASEMGMT ---
Addendum entered by India Platt 01/04/25 10:24: [facility] has accepted and will submit for precert. SW updated. India Platt DC Planning Asst. Original Note: Discharge Planning Referral sent to [facility]. India Platt DC Planning Asst.
--- NOTE | 2025-01-04 10:14 | PCM.PN.HOSP ---
Reason for Visit Reason for Visit: Diagnoses Acute kidney failure, unspecified (01/02/25) Unspecified fall, initial encounter (01/02/25) Subjective Subjective Patient blood glucose levels markedly elevated. Adjusted patient insulin regimen the day prior. Objective Data Objective Data Vital Signs: Vital Signs Temp Pulse Resp BP Pulse Ox O2 Del Method 97.9 F 73 16 95/65 96 Room Air 01/04/25 05:32 01/04/25 05:32 01/04/25 05:32 01/04/25 05:32 01/04/25 05:32 01/04/25 08:11 Oxygen Delivery Method Room Air Weight: 92.5 kg Body Mass Index (BMI) 30.1 Intake & Output: Intake and Output for Last 24 Hours 01/02/25 01/03/25 01/04/25 23:59 23:59 23:59 Intake Total 3137.5 / 3617.5 2360 / 2360 1400 / 1400 Output Total 725 / 1400 2425 / 2425 300 / 300 Balance 2412.5 / 2217.5 -65 / -65 1100 / 1100 Lab / Micro Data 01/03/25 05:29 01/03/25 05:29 Labs: Laboratory Results - last 24 hr 01/02/25 03:54: Urine Color Red, Urine Clarity Turbid, Urine pH 6.0, Ur Specific [place] 1.015, Urine Protein 100 H, Urine Glucose (UA) Normal, Urine Ketones 5 H, Urine Occult Blood 250 H, Urine Nitrite Negative, Urine Bilirubin Negative, Urine Urobilinogen Normal, Ur Leukocyte Esterase 500 H, Urine RBC > 100 SEEN, Urine WBC 25-50 SEEN, Ur Squamous Epith Cells 0 SEEN, Urine Bacteria 3+, Urine Mucus 0 SEEN 01/03/25 11:33: POC Glucose 338 H 01/03/25 16:51: POC Glucose 483 H* 01/03/25 22:06: POC Glucose 356 H 01/04/25 06:41: POC Glucose 331 H Micro: Microbiology 01/02/25 03:54 Urine, Clean Catch Urine Culture - Preliminary Yeast Like Organism Physical Exam Narrative GENERAL: cooperative HEENT: Atraumatic; normocephalic EYES; Anicteric, Normal Conjunctiva NECK; supple, normal thyroid, RESPIRATORY: Diminished to auscultation CARDIOVASCULAR: Regular S1 S2, GI: soft, normoactive bowel sounds, : No Renal angle tenderness; EXTREMITIES: No edema, no clubbing, MUSCULOSKELETAL: no muscle wasting NEURO: Awake; no lateralizing signs. SKIN: No rash PSYCH; Flat affect Assessment & Plan Assessment/Plan (1) Fall: (2) Acute kidney injury: PLAN: Plan Patient is a 59-year-old gentleman with recent multiple hospitalization presented to the emergency department with progressive generalized weakness and vomiting. This was apparently his third visit to the ED within a week. 1. Physical deconditioning/debility ? Secondary to multiple medical comorbidities. Transfer to senior living facility had been recommended to patient during previous hospitalization he did decline. I had a discussion with patient he is amenable to entertaining the idea of going to senior living facility. Subsequently requested for PT OT eval and 7th grade social studies teacher to assist with discharge planning ? 01/03/2025; plan is to discuss with case management regarding disposition 2. Severe hypokalemia ? Patient potassium level on admission was 2.6. Admitted to a monitored bed for close monitoring. Patient potassium corrected per protocol repeat labs ordered for response to therapy ? 01/04/2025; repeated a.m. labs 3. Acute kidney injury ? Creatinine on admission 3.54 did improve to 1.70 we will continue with IV fluids 4. Recurrent UTI ? Patient recently treated with Levaquin after being seen in the ED 5. Recurrent C. difficile colitis ? Patient is on long p.o. vancomycin taper ? 01/04/2025; Case discussed with pharmacy the day prior patient has completed therapy for his long vancomycin taper 6. Cirrhosis of the liver ? Secondary to nonalcoholic fatty liver disease patient is on Aldactone, rifaximin as well as lactulose, patient is followed by GI as outpatient 7. Extensive portal vein thrombosis ? Patient was transferred to a tertiary care center and discharged on Lovenox. Patient however did not tolerate systemic anticoagulation due to recurrent GI bleed 8. Diabetes mellitus type 2 Patient was on metformin held did continue with Accu-Cheks ACHS with sliding scale coverage ? 01/03/2025; patient blood glucose control not optimal adjusted insulin regimen ? 01/04/2025; subsequent adjustment made to patient insulin regimen 9. Hyponatremia ? Secondary to cirrhosis of the liver we will continue with monitor 10. GERD ? On PPI 11. Obstructive sleep apnea ? Consistent use of CPAP encouraged 12. Chronic hypotension ? Patient is on midodrine 13. Dyslipidemia ?Patient is on statin therapy, continued at home dose 14. Anemia ? Secondary to chronic disorder as well as chronic blood loss anemia, monitoring H&H and transfuse if patient becomes symptomatic or hemoglobin falls below 7 15. DVT prophylaxis ? Bilateral SCDs for Charges/Coding Visit Charges Inpatient E&M: 16750 Subs Hosp L2
[2025-01-04 10:26] VITALS: BP 107/68; PULSE 76; RESP 16; TEMP 36.6; O2SAT 97
[2025-01-04 11:10] LABS: Hematocrit 24.6 % (40-54); Hemoglobin 7.9 g/dL (13.0-16.5); Mean Corp Hgb Conc 32.1 g/dL (32-36); Mean Corpuscular Hgb 29.2 pg (27.0-32.0); Mean Corpuscular Volume 90.8 fL (80-94); Mean Platelet Vol. 12.1 fl (6.2-12.0); POSITIVE COUNT YES; Platelet Count 87 K/mm3 (150-450); RBC Distribution Width SD 56.2 fl (35.1-43.9); Red Blood Count 2.71 M/mm3 (4.6-6.2); Scan Indicated on CBC? Y/N YES- FLAGS NOTED; White Blood Count 6.4 K/mm3 (4.4-11.0)
--- NOTE | 2025-01-04 11:36 | CASEMGMT ---
SW completed and submitted PASRR in the even insurance requests it. Hortencia Fleming NIB ASSEMBLER LEODAN
[2025-01-04 11:47] LABS: Differential Comment SCANNED; Magnesium 1.3 mg/dL (1.5-2.2); Phosphorus 2.3 mg/dL (2.7-4.5)
[2025-01-04 11:54] LABS: ALB/GLOB Ratio 0.9 RATIO (0.9-2.4); AST(SGOT) 54 U/L (<=37); Alanine Aminotransfer ALT/SGPT 26 U/L (<=46); Albumin, Serum 2.4 g/dL (3.5-5.0); Alkaline Phosphatase 171 U/L (40-129); Anion Gap 9 (5-15); BUN 15 mg/dL (4-19); BUN/Creat Ratio 14.6 RATIO (10-20); Calcium,Total 7.9 mg/dL (7.6-11.0); Chloride 103 mmol/L (98-108); Creatinine, Serum 1.03 mg/dL (0.70-1.20); EST Glomerular Filtration Rate 84 (>60); Estimated Creatinine Clearance 87.82 ml/min (50-250); Globulin 2.9 g/dL (2.2-4.2); Glucose 256 mg/dL (70-99); Potassium 3.6 mmol/L (3.3-5.1); Protein, Total 5.3 g/dL (5.9-8.4); Sodium Level 131 mmol/L (133-145)
[2025-01-04 12:04] LABS: Bedside Glucose 256 mg/dL (74-106)
[2025-01-04] MEDS: Magnesium Sulfate 4gm/100mL 4 GM/100 ML IV.SOLN. IV (14:10)
[2025-01-04 16:10] VITALS: BP 98/79; PULSE 77; RESP 14; TEMP 36.6; O2SAT 98
[2025-01-04 17:02] LABS: Bedside Glucose 320 mg/dL (74-106)
[2025-01-04 22:45] VITALS: BP 110/54; PULSE 75; RESP 16; TEMP 36.3; O2SAT 99
[2025-01-04] MEDS: cycloBENZAPRine HCl 10 MG Tablet PO (22:52)
[2025-01-04] MEDS: Atorvastatin Calcium 40 MG Tablet PO (22:53)
[2025-01-04 23:18] LABS: Bedside Glucose 369 mg/dL (74-106)
[2025-01-05] MEDS: 0.9% Normal Saline (1000mL) 1,000 ML 75 ML IV (03:42)
[2025-01-05 03:45] VITALS: BP 110/55; PULSE 75; RESP 16; TEMP 36.3; O2SAT 99
[2025-01-05 04:44] VITALS: BMI 29.9
[2025-01-05 05:44] LABS: Absolute Lymphocyte Count 0.94 X10^3/uL (0.83-4.51); Absolute Neutrophil Count 4.8 X10^3/uL (2.0-7.7); Basophil# 0.03 X10^3/uL; Basophil% 0.4 % (0-1); Eosinophil# 0.36 X10^3/uL; Eosinophils% 5.1 % (0-5); Hematocrit 22.3 % (40-54); Hemoglobin 7.5 g/dL (13.0-16.5); Lymphocyte # 0.94 X10^3/ul (0.83-4.51); Lymphocyte % 13.4 % (19-41); Mean Corp Hgb Conc 33.6 g/dL (32-36); Mean Corpuscular Hgb 29.1 pg (27.0-32.0); Mean Corpuscular Volume 86.4 fL (80-94); Mean Platelet Vol. 11.3 fl (6.2-12.0); Monocyte# 0.81 X10^3/uL; Monocyte% 11.6 % (0-10); NRBC Flagged by Analyzer 0 % (0-5); Neutrophil # 4.84 X10^3/uL (2.7-7.7); Neutrophil % 69.1 % (47-70); POSITIVE COUNT YES; Platelet Count 81 K/mm3 (150-450); RBC Distribution Width CV 16.4 % (11.6-14.6); RBC Distribution Width SD 51.8 fl (35.1-43.9); Red Blood Count 2.58 M/mm3 (4.6-6.2)
[2025-01-05 05:56] VITALS: BP 94/60; PULSE 75
[2025-01-05] MEDS: Lactobacillis Acidophilus 1 CAP PO (05:57)
[2025-01-05] MEDS: Midodrine HCl 5 MG Tablet 10 MG PO ×2 (05:57→11:09)
[2025-01-05 06:20] LABS: Anion Gap 9 (5-15); BUN 11 mg/dL (4-19); BUN/Creat Ratio 11.9 RATIO (10-20); Calcium,Total 7.9 mg/dL (7.6-11.0); Carbon Dioxide 18.5 mmol/L (21.0-32.0); Chloride 101 mmol/L (98-108); Creatinine, Serum 0.95 mg/dL (0.70-1.20); EST Glomerular Filtration Rate 92 (>60); Estimated Creatinine Clearance 95.07 ml/min (50-250); Glucose 356 mg/dL (70-99); Potassium 3.6 mmol/L (3.3-5.1); Sodium Level 128 mmol/L (133-145)
--- NOTE | 2025-01-05 07:37 | PCM.PN.HOSP ---
Reason for Visit Reason for Visit: Diagnoses Acute kidney failure, unspecified (01/02/25) Unspecified fall, initial encounter (01/02/25) Subjective Subjective Patient seen blood glucose control not optimal further adjustment made to patient insulin regimen. Patient awaiting insurance precertification prior to transfer to [facility] facility Objective Data Objective Data Vital Signs: Vital Signs Temp Pulse Resp BP Pulse Ox O2 Del Method 97.3 F L 75 16 94/60 99 Room Air 01/05/25 03:45 01/05/25 05:56 01/05/25 03:45 01/05/25 05:56 01/05/25 03:45 01/05/25 03:45 Oxygen Delivery Method Room Air Weight: 92.2 kg Body Mass Index (BMI) 29.9 Intake & Output: Intake and Output for Last 24 Hours 01/03/25 01/04/25 01/05/25 23:59 23:59 23:59 Intake Total 2360 / 2360 2487.5 / 2487.5 1000 / 1000 Output Total 2425 / 2425 1200 / 2700 2150 / 2150 Balance -65 / -65 1287.5 / -212.5 -1150 / -1150 Lab / Micro Data 01/05/25 05:18 01/05/25 05:18 Labs: Laboratory Results - last 24 hr 01/02/25 03:54: Urine Color Red, Urine Clarity Turbid, Urine pH 6.0, Ur Specific [place] 1.015, Urine Protein 100 H, Urine Glucose (UA) Normal, Urine Ketones 5 H, Urine Occult Blood 250 H, Urine Nitrite Negative, Urine Bilirubin Negative, Urine Urobilinogen Normal, Ur Leukocyte Esterase 500 H, Urine RBC > 100 SEEN, Urine WBC 25-50 SEEN, Ur Squamous Epith Cells 0 SEEN, Urine Bacteria 3+, Urine Mucus 0 SEEN 01/04/25 10:55: WBC 6.4, RBC 2.71 L, Hgb 7.9 L, Hct 24.6 L, MCV 90.8, MCH 29.2, MCHC 32.1, RDW Std Deviation 56.2 H, RDW Coeff of Francis 17.0 H, Plt Count 87 L, MPV 12.1 H, Differential Comment SCANNED, Sodium 131 L, Potassium 3.6, Chloride 103, Carbon Dioxide 19.0 L, Anion Gap 9, BUN 15, Creatinine 1.03, Estim Creat Clear Calc 87.82, Est GFR (MDRD) Non-Af 84, BUN/Creatinine Ratio 14.6, Glucose 256 H, Calcium 7.9, Phosphorus 2.3 L, Magnesium 1.3 L, Total Bilirubin 0.90, AST 54 H, ALT 26, Alkaline Phosphatase 171 H, Total Protein 5.3 L, Albumin 2.4 L, Globulin 2.9, Albumin/Globulin Ratio 0.9 01/04/25 11:42: POC Glucose 256 H 01/04/25 16:41: POC Glucose 320 H 01/04/25 22:49: POC Glucose 369 H 01/05/25 05:18: WBC 7.0, RBC 2.58 L, Hgb 7.5 L, Hct 22.3 L, MCV 86.4, MCH 29.1, MCHC 33.6, RDW Std Deviation 51.8 H, RDW Coeff of Francis 16.4 H, Plt Count 81 L, MPV 11.3, Immature Gran % (Auto) 0.400, Neut % (Auto) 69.1, Lymph % (Auto) 13.4 L, Cassia % (Auto) 11.6 H, Eos % (Auto) 5.1 H, Baso % (Auto) 0.4, Absolute Neuts (auto) 4.8, Absolute Lymphs (auto) 0.94, Nucleated RBC % 0, Sodium 128 L, Potassium 3.6, Chloride 101, Carbon Dioxide 18.5 L, Anion Gap 9, BUN 11, Creatinine 0.95, Estim Creat Clear Calc 95.07, Est GFR (MDRD) Non-Af 92, BUN/Creatinine Ratio 11.9, Glucose 356 H, Calcium 7.9 Micro: Microbiology 01/02/25 03:54 Urine, Clean Catch Urine Culture - Final Yeast, not Mary albicans Physical Exam Narrative GENERAL: cooperative HEENT: Atraumatic; normocephalic EYES; Anicteric, Normal Conjunctiva NECK; supple, normal thyroid, RESPIRATORY: Diminished to auscultation CARDIOVASCULAR: Regular S1 S2, GI: soft, normoactive bowel sounds, : No Renal angle tenderness; EXTREMITIES: No edema, no clubbing, MUSCULOSKELETAL: no muscle wasting NEURO: Awake; no lateralizing signs. SKIN: No rash PSYCH; Flat affect Assessment & Plan Assessment/Plan (1) Fall: (2) Acute kidney injury: PLAN: Plan Patient is a 59-year-old gentleman with recent multiple hospitalization presented to the emergency department with progressive generalized weakness and vomiting. This was apparently his third visit to the ED within a week. 1. Physical deconditioning/debility ? Secondary to multiple medical comorbidities. Transfer to [facility] facility had been recommended to patient during previous hospitalization he did decline. I had a discussion with patient he is amenable to entertaining the idea of going to [facility] facility. Subsequently requested for PT OT eval and licensed master social worker to assist with discharge planning ? 01/03/2025; plan is to discuss with case management regarding disposition ? 01/05/2025; awaiting insurance pre-CERT prior to transfer to [facility] facility 2. Severe hypokalemia ? Patient potassium level on admission was 2.6. Admitted to a monitored bed for close monitoring. Patient potassium corrected per protocol repeat labs ordered for response to therapy ? 01/04/2025; repeated a.m. labs 3. Acute kidney injury ? Creatinine on admission 3.54 did improve to 1.70 we will continue with IV fluids 4. Recurrent UTI ? Patient recently treated with Levaquin after being seen in the ED 5. Recurrent C. difficile colitis ? Patient is on long p.o. vancomycin taper ? 01/04/2025; Case discussed with pharmacy the day prior patient has completed therapy for his long vancomycin taper 6. Cirrhosis of the liver ? Secondary to nonalcoholic fatty liver disease patient is on Aldactone, rifaximin as well as lactulose, patient is followed by GI as outpatient 7. Extensive portal vein thrombosis ? Patient was transferred to a tertiary care center and discharged on Lovenox. Patient however did not tolerate systemic anticoagulation due to recurrent GI bleed 8. Diabetes mellitus type 2 Patient was on metformin held did continue with Accu-Cheks ACHS with sliding scale coverage ? 01/03/2025; patient blood glucose control not optimal adjusted insulin regimen ? 01/04/2025; subsequent adjustment made to patient insulin regimen ? 01/05/2025; made subsequent adjustment to insulin regimen with patient glucose levels still not being well-controlled 9. Hyponatremia ? Secondary to cirrhosis of the liver we will continue with monitor 10. GERD ? On PPI 11. Obstructive sleep apnea ? Consistent use of CPAP encouraged 12. Chronic hypotension ? Patient is on midodrine 13. Dyslipidemia ?Patient is on statin therapy, continued at home dose 14. Anemia ? Secondary to chronic disorder as well as chronic blood loss anemia, monitoring H&H and transfuse if patient becomes symptomatic or hemoglobin falls below 7 15. DVT prophylaxis ? Bilateral SCDs for Charges/Coding Visit Charges Inpatient E&M: 60870 Subs Hosp L2
[2025-01-05 08:00] VITALS: BP 100/62; PULSE 74; RESP 16; TEMP 36.6; O2SAT 96
[2025-01-05] MEDS: Pantoprazole Sodium 20 MG Tablet PO (08:04)
[2025-01-05] MEDS: Folic Acid 1 MG Tablet PO (08:04)
[2025-01-05] MEDS: Spironolactone 50 MG Tablet 100 MG PO (08:04)
[2025-01-05] MEDS: Sodium Bicarbonate 650 MG Tablet PO (08:04)
[2025-01-05] MEDS: rifAXIMin 550 MG Tablet PO (08:04)
[2025-01-05] MEDS: Thiamine Hydrochloride 100 MG Tablet PO (08:04)
[2025-01-05] MEDS: Na Biphos/Potassium Phosphate PACKET 1 PACKET PO (08:04)
[2025-01-05] MEDS: Magnesium Chloride 64 MG Delay Rel.Tablet 128 MG PO (08:05)
[2025-01-05] MEDS: Insulin Lispro 100 UNIT/ML INSULN.PEN SC ×2 (08:05→12:29)
[2025-01-05] MEDS: Insulin Lispro 100 UNIT/ML INSULN.PEN 10 UNIT SC ×2 (08:05→12:29)
[2025-01-05] MEDS: Insulin Glargine-YFGN 100 UNIT/ML Pen 20 UNIT SC (08:05)
[2025-01-05] MEDS: Calcium Carb/Vitamin D 1 TABLET Tablet PO (08:05)
[2025-01-05 08:33] LABS: Bedside Glucose 307 mg/dL (74-106)
[2025-01-05 11:08] VITALS: BP 109/64; PULSE 73; RESP 16; TEMP 36.7; O2SAT 98
[2025-01-05] MEDS: Furosemide 40 MG Tablet PO (11:09)
[2025-01-05] MEDS: Nadolol 20 MG Tablet PO (11:09)
[2025-01-05 11:28] LABS: Bedside Glucose 191 mg/dL (74-106)
--- NOTE | 2025-01-05 13:59 | PCM.TXEXTCAR ---
Diet Diet Order/Speech Therapy: INPATIENT Hospital Diet / Speech Therapy Order(s) 01/02/25 07:39 Diet: Cardiac - Heart Healthy Food consistency:: Regular Liquid Consistency:: Regular/Thin Dietary Modifications:: Consistent Carbohydrate Type of Dietary Supplement:: Glucerna Shake Diet Comments: 240mL Glucerna w/meals Routine Orders/Code Status Code Status: Full Code DC O2, CPAP, BIPAP needs Home O2 Discharge instructions: No Therapies Physical Therapy: Eval and Treat Occupational Therapy: Eval and Treat Problem/Diagnosis (1) Fall: Status: Acute Code(s): W19.XXXA - Unspecified fall, initial encounter (2) Acute kidney injury: Status: Acute Code(s): N17.9 - Acute kidney failure, unspecified Plan Patient is a 59-year-old gentleman with recent multiple hospitalization presented to the emergency department with progressive generalized weakness and vomiting. This was apparently his third visit to the ED within a week. 1. Physical deconditioning/debility ? Secondary to multiple medical comorbidities. Transfer to group home facility had been recommended to patient during previous hospitalization he did decline. I had a discussion with patient he is amenable to entertaining the idea of going to group home facility. Subsequently requested for PT OT eval and renal social worker to assist with discharge planning ? 01/03/2025; plan is to discuss with case management regarding disposition ? 01/05/2025; awaiting insurance pre-CERT prior to transfer to group home facility 2. Severe hypokalemia ? Patient potassium level on admission was 2.6. Admitted to a monitored bed for close monitoring. Patient potassium corrected per protocol repeat labs ordered for response to therapy ? 01/04/2025; repeated a.m. labs 3. Acute kidney injury ? Creatinine on admission 3.54 did improve to 1.70 we will continue with IV fluids 4. Recurrent UTI ? Patient recently treated with Levaquin after being seen in the ED 5. Recurrent C. difficile colitis ? Patient is on long p.o. vancomycin taper ? 01/04/2025; Case discussed with pharmacy the day prior patient has completed therapy for his long vancomycin taper 6. Cirrhosis of the liver ? Secondary to nonalcoholic fatty liver disease patient is on Aldactone, rifaximin as well as lactulose, patient is followed by GI as outpatient 7. Extensive portal vein thrombosis ? Patient was transferred to a tertiary care center and discharged on Lovenox. Patient however did not tolerate systemic anticoagulation due to recurrent GI bleed 8. Diabetes mellitus type 2 Patient was on metformin held did continue with Accu-Cheks ACHS with sliding scale coverage ? 01/03/2025; patient blood glucose control not optimal adjusted insulin regimen ? 01/04/2025; subsequent adjustment made to patient insulin regimen ? 01/05/2025; made subsequent adjustment to insulin regimen with patient glucose levels still not being well-controlled 9. Hyponatremia ? Secondary to cirrhosis of the liver we will continue with monitor 10. GERD ? On PPI 11. Obstructive sleep apnea ? Consistent use of CPAP encouraged 12. Chronic hypotension ? Patient is on midodrine 13. Dyslipidemia ?Patient is on statin therapy, continued at home dose 14. Anemia ? Secondary to chronic disorder as well as chronic blood loss anemia, monitoring H&H and transfuse if patient becomes symptomatic or hemoglobin falls below 7 15. DVT prophylaxis ? Bilateral SCDs for Allergies/Procedures Done in Hospital Allergies No Known Allergies Allergy (Verified 01/02/25 03:00) Type of Care/Length of Stay Estimated LOS: Convalescent Care Less Than 30 days Type of Care Needed: Skilled Rehab Potential: Good Prognosis: Good Additional Orders/Day of Discharge Day of Discharge: 01/05/25 Dietary and Speech Recommendations Dietitian Recommendations/Changes: Will adjust diet to Cardiac/CCD diet to manage medical conditions. Will order 240mL Glucerna TID with meals to provide supplemental energy. Discharge Plan Admission Admit Date/Time: 01/02/25 06:06 Attending Provider: Hill Acuña Primary Care Provider: Josy Elias Consulting Providers: Buster Fuchs Discharge Orders/Prescriptions Prescriptions: New insulin lispro [Humalog KwikPen Insulin] 100 unit/mL Insulin Pen See Protocol subcut ACHS Qty: 0 0RF Protocol: 4. Sliding Scale Insulin High-Med Dosing Condition: 150-199 mg/dl = 2 units Condition: 200-259 mg/dl = 4 units Condition: 260-324 mg/dl = 6 units Condition: 325-374 mg/dl = 8 units Condition: 375-409 mg/dl = 10 units Condition: 410-449 mg/dl = 11 units Condition: Greater than 449 call physician Protocol Text: Suggested for: - Patients on Total Daily Insulin Dose of 56-80 units - Patient who are known to be insulin resistant or septic HIGH MEDIUM DOSING ALGORITHM insulin lispro [Humalog KwikPen Insulin] 100 unit/mL Insulin Pen 10 unit subcut TIDAC Qty: 0 0RF insulin glargine-yfgn 100 unit/mL (3 mL) Insulin Pen 20 unit subcut QHS Qty: 0 0RF insulin glargine-yfgn 100 unit/mL (3 mL) Insulin Pen 20 unit subcut DAILY Qty: 0 0RF Continued Xifaxan 550 mg Tablet 550 mg PO BID Qty: 60 0RF cyclobenzaprine 10 mg tablet 10 mg PO QHS ferrous sulfate [FeroSul] 325 mg (65 mg iron) tablet 325 mg PO QODAY nadolol 20 mg tablet 20 mg PO DAILY folic acid 1 mg tablet 1 mg PO DAILY calcium carbonate-vitamin D3 [Oyster Shell Calcium-Vit D3] 500 mg-5 mcg (200 unit) tablet 1 tab PO DAILY acetaminophen 500 mg Tablet 1,000 mg PO Q8 PRN (Reason: fever or pain) atorvastatin 40 mg tablet 40 mg PO DAILY furosemide 20 mg tablet 40 mg PO DAILY magnesium oxide 400 mg (241.3 mg magnesium) tablet 400 mg PO DAILY sodium bicarbonate 650 mg tablet 650 mg PO BID metformin 500 mg tablet extended release 24 hr 500 mg PO QPM spironolactone 50 mg tablet 100 mg PO DAILY thiamine HCl (vitamin B1) 100 mg tablet 100 mg PO DAILY pantoprazole 20 mg tablet,delayed release (DR/EC) 20 mg PO DAILY zinc sulfate 50 mg zinc (220 mg) tablet 50 mg PO DAILY midodrine 10 mg tablet 10 mg PO TID 30 Days Qty: 90 0RF Rx Instructions: do not give last dose of day after 6PM or within 4 hrs of bedtime ascorbic acid (vitamin C) 500 mg tablet 500 mg PO BID Qty: 60 2RF lactulose [Constulose] 10 gram/15 mL solution 15 ml PO TID PRN (Reason: constipation) Patient Comments: HASNT HAD TO TAKE Rx Instructions: Goal to have 2 soft bowel movements per day L.acidoph,saliva-B.bif-S.therm 175 mg Capsule 1 cap PO TID Qty: 120 0RF potassium, sodium phosphates 280-160-250 mg Powder In Packet 1 packet PO BID Qty: 100 0RF Discontinued insulin lispro [Humalog KwikPen Insulin] 100 unit/mL Insulin Pen See Protocol subcut ACHS Qty: 0 0RF Protocol: 4. Sliding Scale Insulin High-Med Dosing Condition: 150-199 mg/dl = 2 units Condition: 200-259 mg/dl = 4 units Condition: 260-324 mg/dl = 6 units Condition: 325-374 mg/dl = 8 units Condition: 375-409 mg/dl = 10 units Condition: 410-449 mg/dl = 11 units Condition: Greater than 449 call physician Protocol Text: Suggested for: - Patients on Total Daily Insulin Dose of 56-80 units - Patient who are known to be insulin resistant or septic HIGH MEDIUM DOSING ALGORITHM Patient Comments: PT DOESNT TAKE OFTEN vancomycin 125 mg capsule 125 mg PO Q6H 35 Days Qty: 56 0RF Rx Instructions: 4x a day for 7 days, then 2x a day for 7 days, then 1x a day for 7 days, then 1x q48h for 14 days. cephalexin 500 mg capsule 500 mg PO TID 7 Days Qty: 21 0RF Referrals / Follow Up: Josy Elias NP-C [Primary Care Provider] - Disposition Disposition (needs filled in before D/C Order can be placed): [facility]
--- NOTE | 2025-01-05 14:04 | PCM.DC.SUM ---
Providers Date of Admission: 01/02/25 Date of Discharge: 01/05/25 Primary Care Physician: YG Pena Reason For Visit: WEAKNESS POSSIBLE UTI Diagnosis Discharge Diagnosis (1) Fall: Status: Acute Code(s): W19.XXXA - Unspecified fall, initial encounter (2) Acute kidney injury: Status: Acute Code(s): N17.9 - Acute kidney failure, unspecified Plan Patient is a 59-year-old gentleman with recent multiple hospitalization presented to the emergency department with progressive generalized weakness and vomiting. This was apparently his third visit to the ED within a week. 1. Physical deconditioning/debility ? Secondary to multiple medical comorbidities. Transfer to intermediate facility had been recommended to patient during previous hospitalization he did decline. I had a discussion with patient he is amenable to entertaining the idea of going to intermediate facility. Subsequently requested for PT OT eval and health social work professor to assist with discharge planning ? 01/03/2025; plan is to discuss with case management regarding disposition ? 01/05/2025; awaiting insurance pre-CERT prior to transfer to intermediate facility ? Patient was discharged to intermediate facility once insurance. 2. Severe hypokalemia ? Patient potassium level on admission was 2.6. Admitted to a monitored bed for close monitoring. Patient potassium corrected per protocol repeat labs ordered for response to therapy ? 01/04/2025; repeated a.m. labs 3. Acute kidney injury ? Creatinine on admission 3.54 did improve to 1.70 we will continue with IV fluids 4. Recurrent UTI ? Patient recently treated with Levaquin after being seen in the ED 5. Recurrent C. difficile colitis ? Patient is on long p.o. vancomycin taper ? 01/04/2025; Case discussed with pharmacy the day prior patient has completed therapy for his long vancomycin taper 6. Cirrhosis of the liver ? Secondary to nonalcoholic fatty liver disease patient is on Aldactone, rifaximin as well as lactulose, patient is followed by GI as outpatient 7. Extensive portal vein thrombosis ? Patient was transferred to a tertiary care center and discharged on Lovenox. Patient however did not tolerate systemic anticoagulation due to recurrent GI bleed 8. Diabetes mellitus type 2 Patient was on metformin held did continue with Accu-Cheks ACHS with sliding scale coverage ? 01/03/2025; patient blood glucose control not optimal adjusted insulin regimen ? 01/04/2025; subsequent adjustment made to patient insulin regimen ? 01/05/2025; made subsequent adjustment to insulin regimen with patient glucose levels still not being well-controlled 9. Hyponatremia ? Secondary to cirrhosis of the liver we will continue with monitor 10. GERD ? On PPI 11. Obstructive sleep apnea ? Consistent use of CPAP encouraged 12. Chronic hypotension ? Patient is on midodrine 13. Dyslipidemia ?Patient is on statin therapy, continued at home dose 14. Anemia ? Secondary to chronic disorder as well as chronic blood loss anemia, monitoring H&H and transfuse if patient becomes symptomatic or hemoglobin falls below 7 15. DVT prophylaxis ? Bilateral SCDs for Medications at Discharge Home Medications rifaximin 550 mg tablet (Xifaxan) 550 mg PO BID diarrhea #60 tabs 09/02/24 acetaminophen 500 mg tablet 1,000 mg PO Q8 PRN fever or pain 10/28/24 calcium 500 mg (as carbonate)-vitamin D3 5 mcg (200 unit) tablet (Oyster Shell Calcium-Vitamin D3) 1 tab PO DAILY supplement 10/28/24 folic acid 1 mg tablet 1 mg PO DAILY supplement 10/28/24 atorvastatin 40 mg tablet 40 mg PO DAILY cholesterol 11/21/24 furosemide 20 mg tablet 40 mg PO DAILY diuretic 11/21/24 magnesium oxide 400 mg (241.3 mg magnesium) tablet 400 mg PO DAILY supplement 11/21/24 metformin 500 mg tablet,extended release 24 hr 500 mg PO QPM diabetes 11/21/24 pantoprazole 20 mg tablet,delayed release 20 mg PO DAILY reflux 11/21/24 sodium bicarbonate 650 mg tablet 650 mg PO BID supplement 11/21/24 spironolactone 50 mg tablet 100 mg PO DAILY diuretic 11/21/24 thiamine HCl (vitamin B1) 100 mg tablet 100 mg PO DAILY supplement 11/21/24 zinc sulfate 50 mg zinc (220 mg) tablet 50 mg PO DAILY supplement 11/21/24 ascorbic acid (vitamin C) 500 mg tablet 500 mg PO BID vitamin #60 tabs 11/25/24 midodrine 10 mg tablet 10 mg PO TID blood pressure 1 month #90 tabs 11/25/24 lactulose 10 gram/15 mL oral solution (Constulose) 15 ml PO TID PRN constipation 11/28/24 L.acidophil,salivari-Bifido bifidum-Strep thermoph 175 mg capsule 1 cap PO TID pobiotic #120 caps 12/02/24 potassium, sodium phosphates 280 mg-160 mg-250 mg oral powder packet 1 packet PO BID electrolytes #100 ea 12/02/24 cyclobenzaprine 10 mg tablet 10 mg PO QHS muscle relaxer 01/02/25 ferrous sulfate 325 mg (65 mg iron) tablet (FeroSul) 325 mg PO QODAY supplement 01/02/25 nadolol 20 mg tablet 20 mg PO DAILY bp 01/02/25 insulin glargine-yfgn 100 unit/mL (3 mL) subcutaneous pen 20 unit (0.2 mL) subcut DAILY #0 mL 01/05/25 insulin glargine-yfgn 100 unit/mL (3 mL) subcutaneous pen 20 unit (0.2 mL) subcut QHS #0 mL 01/05/25 insulin lispro 100 unit/mL subcutaneous pen (Humalog KwikPen (U-100) Insulin) 10 unit (0.1 mL) subcut TIDAC #0 mL 01/05/25 insulin lispro 100 unit/mL subcutaneous pen (Humalog KwikPen (U-100) Insulin) See Protocol subcut ACHS #0 mL 01/05/25 Hospital Course Summary of Care Provided Minutes Spent on Discharge: 32 Physical Exam Narrative GENERAL: cooperative HEENT: Atraumatic; normocephalic EYES; Anicteric, Normal Conjunctiva NECK; supple, normal thyroid, RESPIRATORY: Diminished to auscultation CARDIOVASCULAR: Regular S1 S2, GI: soft, normoactive bowel sounds, : No Renal angle tenderness; EXTREMITIES: No edema, no clubbing, MUSCULOSKELETAL: no muscle wasting NEURO: Awake; no lateralizing signs. SKIN: No rash PSYCH; Flat affect Weight / BMI Weight Weight: 92.2 kg Body Mass Index (BMI) 29.9 ABG / Lab / Microbiology Data 01/05/25 05:18 01/05/25 05:18 Laboratory: Laboratory Results - last 24 hr 01/04/25 16:41: POC Glucose 320 H 01/04/25 22:49: POC Glucose 369 H 01/05/25 05:18: WBC 7.0, RBC 2.58 L, Hgb 7.5 L, Hct 22.3 L, MCV 86.4, MCH 29.1, MCHC 33.6, RDW Std Deviation 51.8 H, RDW Coeff of Francis 16.4 H, Plt Count 81 L, MPV 11.3, Immature Gran % (Auto) 0.400, Neut % (Auto) 69.1, Lymph % (Auto) 13.4 L, [place] % (Auto) 11.6 H, Eos % (Auto) 5.1 H, Baso % (Auto) 0.4, Absolute Neuts (auto) 4.8, Absolute Lymphs (auto) 0.94, Nucleated RBC % 0, Sodium 128 L, Potassium 3.6, Chloride 101, Carbon Dioxide 18.5 L, Anion Gap 9, BUN 11, Creatinine 0.95, Estim Creat Clear Calc 95.07, Est GFR (MDRD) Non-Af 92, BUN/Creatinine Ratio 11.9, Glucose 356 H, Calcium 7.9 01/05/25 07:51: POC Glucose 307 H 01/05/25 11:06: POC Glucose 191 H Microbiology: Microbiology 01/02/25 03:54 Urine, Clean Catch Urine Culture - Final Yeast, not Mary albicans D/C Instructions Discharge Diet: 1800 Calorie Control Diet, 8 Cup Fluid Restriction and 2000 mg Sodium Diet Discharge Activity: Return to Normal Activity Call your doctor if you observe: Fever of 101 or Higher, Shortness of breath, Fainting spells and Chest pain DC O2, CPAP, BIPAP Needs Home O2 Discharge instructions: No Meaningful Use Info Meaningful Use Meaningful Use Diagnoses (Choose all that apply): None applicable Ischemic Stroke Statin Dosing Therapy Reference: STATIN DOSE THERAPY REFERENCE: * Patients > 75 years receive moderate or high dose statin therapy. * Patients 75 years or YOUNGER should receive HIGH intensity statin dose unless contraindicated. You will be required to document reason for non-treatment if statin daily dose does not meet guidelines. HIGH DOSE STATIN THERAPY DAILY Atorvastatin > than or = to 40 mg Rosuvastatin > than or = to 20 mg Amlodipine + Atorvastatin > than or = to 2.5/40 mg Ezetimibe + Simvastatin 10/80 mg Simvastatin 80mg Discharge Plan Admission Admit Date/Time: 01/02/25 06:06 Attending Provider: Hill Acuña Primary Care Provider: Josy Elias Consulting Providers: Buster Fuchs Discharge Orders/Prescriptions Prescriptions: New insulin lispro [Humalog KwikPen Insulin] 100 unit/mL Insulin Pen See Protocol subcut ACHS Qty: 0 0RF Protocol: 4. Sliding Scale Insulin High-Med Dosing Condition: 150-199 mg/dl = 2 units Condition: 200-259 mg/dl = 4 units Condition: 260-324 mg/dl = 6 units Condition: 325-374 mg/dl = 8 units Condition: 375-409 mg/dl = 10 units Condition: 410-449 mg/dl = 11 units Condition: Greater than 449 call physician Protocol Text: Suggested for: - Patients on Total Daily Insulin Dose of 56-80 units - Patient who are known to be insulin resistant or septic HIGH MEDIUM DOSING ALGORITHM insulin lispro [Humalog KwikPen Insulin] 100 unit/mL Insulin Pen 10 unit subcut TIDAC Qty: 0 0RF insulin glargine-yfgn 100 unit/mL (3 mL) Insulin Pen 20 unit subcut QHS Qty: 0 0RF insulin glargine-yfgn 100 unit/mL (3 mL) Insulin Pen 20 unit subcut DAILY Qty: 0 0RF Continued Xifaxan 550 mg Tablet 550 mg PO BID Qty: 60 0RF cyclobenzaprine 10 mg tablet 10 mg PO QHS ferrous sulfate [FeroSul] 325 mg (65 mg iron) tablet 325 mg PO QODAY nadolol 20 mg tablet 20 mg PO DAILY folic acid 1 mg tablet 1 mg PO DAILY calcium carbonate-vitamin D3 [Oyster Shell Calcium-Vit D3] 500 mg-5 mcg (200 unit) tablet 1 tab PO DAILY acetaminophen 500 mg Tablet 1,000 mg PO Q8 PRN (Reason: fever or pain) atorvastatin 40 mg tablet 40 mg PO DAILY furosemide 20 mg tablet 40 mg PO DAILY magnesium oxide 400 mg (241.3 mg magnesium) tablet 400 mg PO DAILY sodium bicarbonate 650 mg tablet 650 mg PO BID metformin 500 mg tablet extended release 24 hr 500 mg PO QPM spironolactone 50 mg tablet 100 mg PO DAILY thiamine HCl (vitamin B1) 100 mg tablet 100 mg PO DAILY pantoprazole 20 mg tablet,delayed release (DR/EC) 20 mg PO DAILY zinc sulfate 50 mg zinc (220 mg) tablet 50 mg PO DAILY midodrine 10 mg tablet 10 mg PO TID 30 Days Qty: 90 0RF Rx Instructions: do not give last dose of day after 6PM or within 4 hrs of bedtime ascorbic acid (vitamin C) 500 mg tablet 500 mg PO BID Qty: 60 2RF lactulose [Constulose] 10 gram/15 mL solution 15 ml PO TID PRN (Reason: constipation) Patient Comments: HASNT HAD TO TAKE Rx Instructions: Goal to have 2 soft bowel movements per day L.acidoph,saliva-B.bif-S.therm 175 mg Capsule 1 cap PO TID Qty: 120 0RF potassium, sodium phosphates 280-160-250 mg Powder In Packet 1 packet PO BID Qty: 100 0RF Discontinued insulin lispro [Humalog KwikPen Insulin] 100 unit/mL Insulin Pen See Protocol subcut ACHS Qty: 0 0RF Protocol: 4. Sliding Scale Insulin High-Med Dosing Condition: 150-199 mg/dl = 2 units Condition: 200-259 mg/dl = 4 units Condition: 260-324 mg/dl = 6 units Condition: 325-374 mg/dl = 8 units Condition: 375-409 mg/dl = 10 units Condition: 410-449 mg/dl = 11 units Condition: Greater than 449 call physician Protocol Text: Suggested for: - Patients on Total Daily Insulin Dose of 56-80 units - Patient who are known to be insulin resistant or septic HIGH MEDIUM DOSING ALGORITHM Patient Comments: PT DOESNT TAKE OFTEN vancomycin 125 mg capsule 125 mg PO Q6H 35 Days Qty: 56 0RF Rx Instructions: 4x a day for 7 days, then 2x a day for 7 days, then 1x a day for 7 days, then 1x q48h for 14 days. cephalexin 500 mg capsule 500 mg PO TID 7 Days Qty: 21 0RF Referrals / Follow Up: Josy Elias [employer] [Primary Care Provider] - Disposition Disposition (needs filled in before D/C Order can be placed): [facility] Facility Charges/Coding Visit Charges Inpatient E&M: 82205 Disch Hosp >30min
--- NOTE | 2025-01-05 14:09 | CASEMGMT ---
Patient has been approved to go to [facility]. SW completed a PASRR. Physicians will transport patient via wheelchair van. Plan: d/c to [facility] under skilled level of care on a PASRR. Physicians will transport patient. Hortencia ALCOCER
--- NOTE | 2025-01-05 14:43 | CASEMGMT ---
Discharge Planning Discharge orders, signed med list, and transport time sent to [facility]. Physicians will transport pt by wheelchair at 4:30p. Nursing, SW, pt, his sig other (Mary), and son (Leopoldo) updated. Updated contact info for both Mary and Leopoldo sent to [facility]. India Platt DC Planning Asst.
--- NOTE | 2025-01-05 14:47 | PHA.DC.MR.R ---
Pharmacy [place] Med Reconciliation Pharmacy Service has performed discharge medication reconciliation for this patient. The patient's discharge medication list was reviewed for discrepancies and discrepancies were resolved. Medications at Discharge Home Medications rifaximin 550 mg tablet (Xifaxan) 550 mg PO BID diarrhea #60 tabs 09/02/24 acetaminophen 500 mg tablet 1,000 mg PO Q8 PRN fever or pain 10/28/24 calcium 500 mg (as carbonate)-vitamin D3 5 mcg (200 unit) tablet (Oyster Shell Calcium-Vitamin D3) 1 tab PO DAILY supplement 10/28/24 folic acid 1 mg tablet 1 mg PO DAILY supplement 10/28/24 atorvastatin 40 mg tablet 40 mg PO DAILY cholesterol 11/21/24 furosemide 20 mg tablet 40 mg PO DAILY diuretic 11/21/24 magnesium oxide 400 mg (241.3 mg magnesium) tablet 400 mg PO DAILY supplement 11/21/24 metformin 500 mg tablet,extended release 24 hr 500 mg PO QPM diabetes 11/21/24 pantoprazole 20 mg tablet,delayed release 20 mg PO DAILY reflux 11/21/24 sodium bicarbonate 650 mg tablet 650 mg PO BID supplement 11/21/24 spironolactone 50 mg tablet 100 mg PO DAILY diuretic 11/21/24 thiamine HCl (vitamin B1) 100 mg tablet 100 mg PO DAILY supplement 11/21/24 zinc sulfate 50 mg zinc (220 mg) tablet 50 mg PO DAILY supplement 11/21/24 ascorbic acid (vitamin C) 500 mg tablet 500 mg PO BID vitamin #60 tabs 11/25/24 midodrine 10 mg tablet 10 mg PO TID blood pressure 1 month #90 tabs 11/25/24 lactulose 10 gram/15 mL oral solution (Constulose) 15 ml PO TID PRN constipation 11/28/24 L.acidophil,salivari-Bifido bifidum-Strep thermoph 175 mg capsule 1 cap PO TID pobiotic #120 caps 12/02/24 potassium, sodium phosphates 280 mg-160 mg-250 mg oral powder packet 1 packet PO BID electrolytes #100 ea 12/02/24 cyclobenzaprine 10 mg tablet 10 mg PO QHS muscle relaxer 01/02/25 ferrous sulfate 325 mg (65 mg iron) tablet (FeroSul) 325 mg PO QODAY supplement 01/02/25 nadolol 20 mg tablet 20 mg PO DAILY bp 01/02/25 insulin glargine-yfgn 100 unit/mL (3 mL) subcutaneous pen 20 unit (0.2 mL) subcut DAILY #0 mL 01/05/25 insulin glargine-yfgn 100 unit/mL (3 mL) subcutaneous pen 20 unit (0.2 mL) subcut QHS #0 mL 01/05/25 insulin lispro 100 unit/mL subcutaneous pen (Humalog KwikPen (U-100) Insulin) 10 unit (0.1 mL) subcut TIDAC #0 mL 01/05/25 insulin lispro 100 unit/mL subcutaneous pen (Humalog KwikPen (U-100) Insulin) See Protocol subcut ACHS #0 mL 01/05/25
--- NOTE | 2025-01-05 15:10 | NURSING ---
Report called to Jeri at [facility], all questions answered. Aware of pickup time [id number]
[2025-01-05 16:00] VITALS: BP 103/60; PULSE 73; RESP 16; TEMP 36.7; O2SAT 94
[2025-01-05 17:03] LABS: Bedside Glucose 163 mg/dL (74-106)
== END 2025-01-05 17:01 | disposition skilled nursing facility (03) | DRG 469 ==
LOC: ED 06:00 → PCU 06:28
PROVIDERS: Admitting Provider Family Medicine; Emergency Provider Emergency Medicine; PCP Nurse Practitioner Family; Visit Provider Internal Medicine
DX: N17.9 Acute kidney failure, unspecified (principal); I81 Portal vein thrombosis; A04.71 Enterocolitis due to Clostridium difficile, recurrent; E11.65 Type 2 diabetes mellitus with hyperglycemia; D50.0 Iron deficiency anemia secondary to blood loss (chronic); E87.1 Hypo-osmolality and hyponatremia; E78.5 Hyperlipidemia, unspecified; K74.60 Unspecified cirrhosis of liver; I10 Essential (primary) hypertension; E87.6 Hypokalemia; Z79.4 Long term (current) use of insulin; K76.0 Fatty (change of) liver, not elsewhere classified; I95.89 Other hypotension; K21.9 Gastro-esophageal reflux disease without esophagitis; G47.33 Obstructive sleep apnea (adult) (pediatric); N39.0 Urinary tract infection, site not specified; R53.81 Other malaise; Z79.84 Long term (current) use of oral hypoglycemic drugs; N20.0 Calculus of kidney; G89.29 Other chronic pain; Z79.01 Long term (current) use of anticoagulants; Z87.891 Personal history of nicotine dependence; Z82.49 Family history of ischemic heart disease and other diseases of the circulatory system; Z86.19 Personal history of other infectious and parasitic diseases
CPT/HCPCS: 36415; 70450; 71046; 72125; 74176; 80048; 80053; 81001; 82077; 82140; 82962; 83690; 83735; 84100; 84484; 85025; 85027; 87086; 87088; 93005; 96361; 96365; 97162; 97166; 97530; 97535; 97802; 99284; 99285; A4216; J2405

== ENCOUNTER 2025-01-09 10:09 | Inpatient (IN) | payer MEDICAID, SELFPAY ==
[2025-01-09] VITALS (34 sets, daily range): BP systolic 85–110; BP diastolic 52–73; PULSE 54–73; RESP 11–22; TEMP 36.5–36.8; O2SAT 96–100; BMI 29.5; BMI 29.2
--- NOTE | 2025-01-09 10:31 | CT_ITS ---
PROCEDURE: ABDOMEN/PELVIS WITHOUT CONT 01/09/2025 REASON FOR EXAM: ABDOMINAL PAIN. Several days of abdominal pain and back pain, left-sided and left groin pain TECHNIQUE: Abdomen and pelvis CT without intravenous contrast. Noncontrast technique limits evaluation of the abdominal and pelvic viscera. Coronal and Sagittal reconstruction series were provided. One or more dose reduction techniques were used (e.g., Automated exposure control, adjustment of the mA and/or kV according to patient size, use of iterative reconstruction technique). PATIENT PREPARATION: Per protocol ORAL CONTRAST TYPE: None. AMOUNT: mL FINDINGS: Lung bases: Clear Liver: Small with undulating margins of cirrhosis. Gallbladder: Multiple gallstones. Distended gallbladder without evidence of cholecystitis. Spleen: Spleen length 12.3 cm and 6 point 3 cm AP consistent with splenomegaly. Pancreas: Unremarkable Adrenals: Right adrenal has normal appearance. Left adrenal grossly appears normal but is difficult to visualize due to large number portal venous collateral vessels best seen on coronal images. Kidneys: Double-J stent extends from the left renal pelvis to the bladder base in good position. Staghorn calculus left kidney. Right kidney appears normal. Bladder: Left-sided double-J stent terminates in the left bladder base. Urinary bladder otherwise unremarkable. Reproductive Organs: Unremarkable Bowel: Unremarkable Appendix: No focal inflammatory process identified the right quadrant Lymph nodes: Vasculature: Mild scattered aortic calcifications. Peritoneum / Retroperitoneum: Numerous portal venous collaterals in the mesentery. Mild ascites. Edema in the mesentery. Bones: Anterior was compression deformity of T 12, the 11 T 10. Somewhat aggressive appearing lysis T 11 and T 12 Left of center abdominal wall hernia containing fat and ascites CT/Abdomen/Pelvis without Cont IMPRESSION: Fractures of 10, specially T 11 and T 12 with questionable lytic process. Diff erential diagnostic considerations include neoplasm as well as other benign etiologies. Double-J stent in the left collecting system extending to the left bladder base . Kidney staghorn calculus. Cholelithiasis without evidence of cholecystitis. Ventral hernia containing fat and ascites. Cholelithiasis without cholecystitis Cirrhosis and small amount of ascites. Stigmata of portal venous hypertension. No liver masses identified. Reading [facility]
--- NOTE | 2025-01-09 10:33 | EDS_ITS ---
HPI HPI - GI History of Present Illness Chief Complaint: Abd Pain Detail of Chief Complaint: Abdominal pain Informant: patient Narrative Narrative: Patient presents to the emergency department with complaint of abdominal pain and back pain that started few days ago. Had some pain in his groin today on the left side. Denies any injury. He said no falls. He denies fever. He has had some mild nausea but no vomiting. He denies urinary symptoms. Patient is from a care home and normally ambulates with a walker. Patient has history of cirrhosis and history of diabetes as well as high cholesterol. Patient has had prior paracentesis. Currently rates his pain about a 5 out of 10. He does not want thing for pain currently. [facility] Medical History Weakness Diarrhea Sepsis Acidosis, lactic Acute hypotension Acute UTI Chronic hypotension Obesity (BMI 30-39.9) Chronic back pain ISABEL (acute kidney injury) Hypotension Hepatic encephalopathy Hyperbilirubinemia Liver cirrhosis secondary to HARRIS (nonalcoholic steatohepatitis) HLD (hyperlipidemia) HTN (hypertension) Thrombocytopenia Chronic anemia Former tobacco use Diabetes mellitus, type 2 ABBY on CPAP Back pain Home Medications ?Medication ?Instructions ?Recorded ?Last Taken ?Type rifaximin 550 mg tablet (Xifaxan) 550 mg PO BID diarrh ea #60 tabs 09/02/24 11/28/24 Rx acetaminophen 500 mg tablet 1,000 mg PO Q8 PRN fever o r pain 10/28/24 Unknown History calcium 500 mg (as 1 tab PO DAILY supplement 11/28/24 History carbonate)-vitamin D3 5 mcg (200 unit) tablet (Oyster Shell Calcium-Vitamin D3) folic acid 1 mg tablet 1 mg PO DAILY supplement 11/28/24 History atorvastatin 40 mg tablet 40 mg PO DAILY cholesterol 0 11/21/24 11/27/24 History furosemide 20 mg tablet 40 mg PO DAILY diuretic 11/0311/28/24 History magnesium oxide 400 mg (241.3 mg 400 mg PO DAILY suppl ement 11/21/24 11/28/24 History magnesium) tablet metformin 500 mg tablet,extended 500 mg PO QPM diabete s 11/21/24 11/27/24 History release 24 hr pantoprazole 20 mg tablet,delayed 20 mg PO DAILY reflu x 11/21/24 11/28/24 History release sodium bicarbonate 650 mg tablet 650 mg PO BID supplem ent 11/21/24 11/28/24 History spironolactone 50 mg tablet 100 mg PO DAILY diuretic 0 11/21/24 11/28/24 History thiamine HCl (vitamin B1) 100 mg 100 mg PO DAILY suppl ement 11/21/24 Unknown History tablet zinc sulfate 50 mg zinc (220 mg) 50 mg PO DAILY supple ment 11/21/24 11/28/24 History tablet ascorbic acid (vitamin C) 500 mg 500 mg PO BID vitamin #60 tabs 11/25/24 11/28/24 Rx tablet midodrine 10 mg tablet 10 mg PO TID blood pressure 1 11/25/24 Unknown Rx month #90 tabs lactulose 10 gram/15 mL oral 15 ml PO TID PRN constipa tion 11/28/24 Unknown History solution (Constulose) L.acidophil,salivari-Bifido 1 cap PO TID pobiotic #120 caps 12/02/24 Unknown Rx bifidum-Strep thermoph 175 mg capsule potassium, sodium phosphates 280 1 packet PO BID elect rolytes #100 12/02/24 Unknown Rx mg-160 mg-250 mg oral powder packet ea cyclobenzaprine 10 mg tablet 10 mg PO QHS muscle relax er 01/02/25 Unknown History ferrous sulfate 325 mg (65 mg 325 mg PO QODAY suppleme nt 01/02/25 Unknown History iron) tablet (FeroSul) nadolol 20 mg tablet 20 mg PO DAILY bp 01/02/25 U nknown History insulin glargine-yfgn 100 unit/mL 20 unit (0.2 mL) sub cut DAILY #0 mL 01/05/25 Unknown Rx (3 mL) subcutaneous pen insulin glargine-yfgn 100 unit/mL 20 unit (0.2 mL) sub cut QHS #0 mL 01/05/25 Unknown Rx (3 mL) subcutaneous pen insulin lispro 100 unit/mL 10 unit (0.1 mL) subcut TID AC #0 mL 01/05/25 Unknown Rx subcutaneous pen (Humalog KwikPen (U-100) Insulin) insulin lispro 100 unit/mL See Protocol subcut ACHS #0 mL 01/05/25 Unknown Rx subcutaneous pen (Humalog KwikPen (U-100) Insulin) Allergy/AdvReac Type Severity Reaction Status Date / Time No Known Allergies Allergy Verified 01/02/25 03:00 Family History Mother Heart disease Hypertension CAD (coronary artery disease) Myocardial infarction Father Hypertension Heart disease Heart failure Surgical History History of tonsillectomy and adenoidectomy Social History household members: significant other Smoking Status: Former smoker how long ago did patient quit smoking: Quit ~ 3-4 months prior (fall 2023), smoked 1.5 ppd since teen until quit. alcohol intake: never substance use type: does not use ROS ROS ED Review of Systems ROS Unobtainable: other Constitutional Constitutional ED: Reports lethargy; Denies chills, fever(s), sweats or weight loss Eyes Eyes: Denies blurry vision, change in vision or diplopia ENT ENT ED: Denies rhinorrhea or sore throat Cardiovascular Cardiovascular: Denies chest pain, orthopnea or racing heartbeat Respiratory/Chest Respiratory/Chest: Denies cough, dyspnea, dyspnea on exertion, orthopnea or sputum Gastrointestinal Gastrointestinal: Reports abdominal pain and nausea; Denies diarrhea or vomiting Genitourinary Genitourinary ED: Denies dysuria, hematuria or urinary frequency Musculoskeletal Musculoskeletal: Denies arthralgias, back pain, myalgias or neck pain Integumentary Denies abscess, Abrasions or rash Neurologic Neurologic: Denies headache(s) or weakness Psychiatric Psychiatric: Denies anxiety, depression or suicidal thoughts Endocrine Endocrinology: Denies polydipsia, polyphagia or polyuria Hematologic/Lymphatic Hematologic/Lymphatic: Denies easy bleeding, easy bruising or lymphadenopathy Allergic/Immunologic Allergic/Immunologic ED: Denies mouth swelling, tongue swelling or urticaria EXAM Physical Exam Const Vital Signs: 01/09/25 10:10 01/09/25 10:21 01/09/25 10:30 Temperature 98 F Temperature Source Oral Pulse Rate 72 71 71 Respiratory Rate 16 16 16 Blood Pressure 93/56 L 89/59 L Blood Pressure Mean 68 70 Pulse Ox 100 100 99 Oxygen Delivery Method Room Air 01/09/25 10:45 01/09/25 11:00 01/09/25 11:15 Temperature Temperature Source Pulse Rate 69 67 70 Respiratory Rate 20 H 16 20 H Blood Pressure Blood Pressure Mean Pulse Ox 100 100 99 Oxygen Delivery Method 01/09/25 11:30 01/09/25 11:45 01/09/25 12:00 Temperature Temperature Source Pulse Rate 71 73 67 Respiratory Rate 22 H 20 H 14 Blood Pressure Blood Pressure Mean Pulse Ox 100 100 100 Oxygen Delivery Method 01/09/25 12:15 01/09/25 12:30 01/09/25 12:41 Temperature Temperature Source Pulse Rate Respiratory Rate Blood Pressure 89/54 L Blood Pressure Mean 66 Pulse Ox 100 100 100 Oxygen Delivery Method 01/09/25 12:43 01/09/25 12:45 01/09/25 13:03 Temperature Temperature Source Pulse Rate 68 69 66 Respiratory Rate 19 H 16 16 Blood Pressure 92/52 L 86/54 L 88/53 L Blood Pressure Mean 64 64 66 Pulse Ox 100 100 100 Oxygen Delivery Method 01/09/25 13:04 01/09/25 13:15 01/09/25 13:30 Temperature 98 F Temperature Source Oral Pulse Rate 66 64 63 Respiratory Rate 19 H 16 17 Blood Pressure 88/53 L 87/54 L 85/65 L Blood Pressure Mean 64 64 71 Pulse Ox 100 100 Oxygen Delivery Method Room Air 01/09/25 13:45 01/09/25 14:00 01/09/25 14:01 Temperature Temperature Source Pulse Rate 63 69 Respiratory Rate 15 16 Blood Pressure 95/56 L 107/59 L Blood Pressure Mean 69 73 Pulse Ox 100 100 Oxygen Delivery Method Positive well nourished and well developed General Appearance ED: well developed and NAD HEENT Reports TM's clear and moist mucous membranes normocephalic and atraumatic; Negative for trauma or tenderness Tympanic Membrane ED: Yes TM's clear Eyes PERRL and EOMs intact bilaterally General Eye ED: Negative for pale conjunctiva or scleral icterus Neck no lymphadenopathy, supple and no JVD General: Negative for tenderness Chest Wall inspection of chest normal and palpation of chest normal Chest: Negative for tenderness Resp normal respiratory effort and clear to auscultation bilaterally Effort and Inspection: Negative for respiratory distress or pain with movement Auscultation: Negative for rhonchi, wheezes or diminished lung sounds Cardio regular rate, regular rhythm, S1 normal heart sound, S2 normal heart sound and no murmurs Peripheral Pulses: pulses 2+ throughout GI normal to inspection, nondistended, normoactive bowel sounds, soft to palpation, non-distended and no masses GI Narrative: Mild tenderness over the left lower quadrant and left suprapubic region. No tenderness in the groin on exam. No masses in the groin. Patient does not have a fluid wave. Back/Spine no CVA tenderness and no thoracic nor lumbar tenderness Extremity normal to inspection General Extremety ED: Negative for edema General Extremity: Negative for edema Neuro oriented x3, CN's II-XII intact bilaterally, no sensory deficits noted and gait normal Sensorium / Orientation: awake, alert, oriented to person, oriented to place and oriented to time Motor Exam: strength 5/5 throughout and strength abnormal Psych mental status grossly normal Skin no rashes or lesions noted and no wounds MDM MDM MDM Narrative Medical decision making narrative: Patient presents the emergency department not feeling well had some pain in his low back without trauma. Complains of some pain in left groin. He has had some nausea. Patient thinks maybe he needs to have his abdomen tapped again as he has had paracentesis in the past. He had a history of UTI and history of cirrhosis. IV line established on arrival. Blood cultures ordered. CBC with differential obtained showed an elevated white count of 13.2 with hemoglobin 7.9 and platelet count of 114,000. Chemistries unremarkable. BUN was 24 and creatinine 1.77. AST was 68 and ALT 42 with an alk phos of 196. Urinalysis positive for UTI. Blood cultures ordered and urine culture sent. He was started initially empirically on IV Zosyn and Vanco. He was given normal saline fluid bolus 30 cc/kg. Concern for sepsis. Patient blood pressure did respond to fluid bolus and latest systolic about 107. Patient also normally runs a low blood pressure and is on midodrine. CT scan of the abdomen pelvis showed compression fractures of T10-11 and 12 and concern for lytic process. Patient also noted to have cholelithiasis and evidence for cirrhosis with small amount of ascites. Case discussed with hospitalist will evaluate patient for admission to the ICU. Lab Data Attestation: I reviewed the patient's lab results. Labs: Laboratory Results - last 24 hr 01/09/25 01/09/25 10:40 13:28 WBC 13.2 H RBC 2.69 L Hgb 7.9 L Hct 24.3 L MCV 90.3 MCH 29.4 MCHC 32.5 RDW Std Deviation 57.5 H RDW Coeff of Francis 18.1 H Plt Count 114 L MPV 11.7 Immature Gran % (Auto) 0.900 Neut % (Auto) 80.6 H Lymph % (Auto) 7.2 L Dodge % (Auto) 6.7 Eos % (Auto) 4.2 Baso % (Auto) 0.4 Absolute Neuts (auto) 10.6 H Absolute Lymphs (auto) 0.95 Nucleated RBC % 0 Sodium 129 L Potassium 3.6 Chloride 103 Carbon Dioxide 13.6 L Anion Gap 13 BUN 24 H Creatinine 1.77 H Estim Creat Clear Calc 50.61 Est GFR (MDRD) Non-Af 44 L BUN/Creatinine Ratio 13.4 Glucose 149 H Lactic Acid 3.1 H* Calcium 8.4 Total Bilirubin 1.15 AST 68 H ALT 42 Alkaline Phosphatase 196 H Total Protein 5.3 L Albumin 2.4 L Globulin 2.9 Albumin/Globulin Ratio 0.8 L Urine Color Red Urine Clarity Turbid Urine pH 6.0 Ur Specific Hampton 1.015 Urine Protein 500 H Urine Glucose (UA) Normal Urine Ketones 5 H Urine Occult Blood 250 H Urine Nitrite Negative Urine Bilirubin 1 H Urine Urobilinogen Normal Ur Leukocyte Esterase 500 H Urine RBC > 100 SEEN Urine WBC 50-100 SEEN Ur Squamous Epith Cells 0-5 SEEN Urine Bacteria 0 SEEN Urine Mucus 0 SEEN Radiography Diagnostic Testing: Clinical Impression(s) from Imaging Studies Abdomen/Pelvis CT 01/09/25 10:31 IMPRESSION: Fractures of 10, specially T 11 and T 12 with questionable lytic process. Differential diagnostic considerations include neoplasm as well as other benign etiologies. Double-J stent in the left collecting system extending to the left bladder base. Kidney staghorn calculus. Cholelithiasis without evidence of cholecystitis. Ventral hernia containing fat and ascites. Cholelithiasis without cholecystitis Cirrhosis and small amount of ascites. Stigmata of portal venous hypertension. No liver masses identified. Reading [facility] Critical Care Time Critical care time (excluding procedures): 30-74 minutes, Including time spent:, Discussing w/Patient &/or Family/Equipment Validation Specialist, Discussing w/Consultants, Arranging Admission or Transfer, Performing Direct Patient Care at Bedside and - (30 minutes) Discharge Plan Triage Chief Complaint: Abd Pain ED Provider: Breann Mendez Dx/Rx/DC Orders Clinical Impression: Sepsis, Acute UTI, ISABEL (acute kidney injury), Compression fracture of thoracic spine, non-traumatic Prescriptions: No Action Xifaxan 550 mg Tablet 550 mg PO BID Qty: 60 0RF cyclobenzaprine 10 mg tablet 10 mg PO QHS ferrous sulfate [FeroSul] 325 mg (65 mg iron) tablet 325 mg PO QODAY nadolol 20 mg tablet 20 mg PO DAILY insulin lispro [Humalog KwikPen Insulin] 100 unit/mL Insulin Pen See Protocol subcut ACHS Qty: 0 0RF Protocol: 4. Sliding Scale Insulin High-Med Dosing Condition: 150-199 mg/dl = 2 units Condition: 200-259 mg/dl = 4 units Condition: 260-324 mg/dl = 6 units Condition: 325-374 mg/dl = 8 units Condition: 375-409 mg/dl = 10 units Condition: 410-449 mg/dl = 11 units Condition: Greater than 449 call physician Protocol Text: Suggested for: - Patients on Total Daily Insulin Dose of 56-80 units - Patient who are known to be insulin resistant or septic HIGH MEDIUM DOSING ALGORITHM insulin lispro [Humalog KwikPen Insulin] 100 unit/mL Insulin Pen 10 unit subcut TIDAC Qty: 0 0RF insulin glargine-yfgn 100 unit/mL (3 mL) Insulin Pen 20 unit subcut QHS Qty: 0 0RF insulin glargine-yfgn 100 unit/mL (3 mL) Insulin Pen 20 unit subcut DAILY Qty: 0 0RF folic acid 1 mg tablet 1 mg PO DAILY calcium carbonate-vitamin D3 [Oyster Shell Calcium-Vit D3] 500 mg-5 mcg (200 unit) tablet 1 tab PO DAILY acetaminophen 500 mg Tablet 1,000 mg PO Q8 PRN (Reason: fever or pain) atorvastatin 40 mg tablet 40 mg PO DAILY furosemide 20 mg tablet 40 mg PO DAILY magnesium oxide 400 mg (241.3 mg magnesium) tablet 400 mg PO DAILY sodium bicarbonate 650 mg tablet 650 mg PO BID metformin 500 mg tablet extended release 24 hr 500 mg PO QPM spironolactone 50 mg tablet 100 mg PO DAILY thiamine HCl (vitamin B1) 100 mg tablet 100 mg PO DAILY pantoprazole 20 mg tablet,delayed release (DR/EC) 20 mg PO DAILY zinc sulfate 50 mg zinc (220 mg) tablet 50 mg PO DAILY midodrine 10 mg tablet 10 mg PO TID 30 Days Qty: 90 0RF Rx Instructions: do not give last dose of day after 6PM or within 4 hrs of bedtime ascorbic acid (vitamin C) 500 mg tablet 500 mg PO BID Qty: 60 2RF lactulose [Constulose] 10 gram/15 mL solution 15 ml PO TID PRN (Reason: constipation) Patient Comments: HASNT HAD TO TAKE Rx Instructions: Goal to have 2 soft bowel movements per day L.acidoph,saliva-B.bif-S.therm 175 mg Capsule 1 cap PO TID Qty: 120 0RF potassium, sodium phosphates 280-160-250 mg Powder In Packet 1 packet PO BID Qty: 100 0RF Primary Care Provider: Josy Elias Referrals: Josy Elias, [employer] [Primary Care Provider] - Print Language: Yoruba Disposition Disposition: Acute Care [facility]
--- OUTSIDE RECORDS SUMMARY | 2025-01-09 10:48 | XMS RPT_ITS | CCD ---
Author Organization [facility] Care Team Providers Care Hand Bunch Maker Name Role Phone Sergey HERNANDEZ, Maurice Soria Primary Care Provider Care Physician, No Primary Primary Care Provider Unavailable Anni NOYOLA, Dr. Delgado Attending Provider Dr. Danny Hutton DO Emergency Provider Dr. Luis Carlos Anderson DO Emergency Provider Mone HERNANDEZ, Dr. Maria Guadalupe Carlson Admit Provider [phone] Mone HERNANDEZ, Dr. Maria Guadalupe Carlson Referring Provider Mone HERNANDEZ, Dr. Maria Guadalupe Carlson Other Provider [phone] Rick Carlin DO Attending Provider Erin HERNANDEZ, Dr. Rocha Other Provider Zelalem HERNANDEZ, Dr. Coker Other Provider Dr. Christian Abdi MD Other Provider Dr. Juarez Baird MD Other Provider Dr. Bola Meraz DO Attending Provider Dr. Bola Meraz DO Other Provider Víctor HERNANDEZ, Dr. Hill Alcaraz Other Provider Dr. Jeff Cornelius MD Other Provider Dr. Yury Canas MD Other Provider Ashely HERNANDEZ, Dr. Foote Other Provider Cassandra HERNANDEZ, Dr. Garvin Other Provider [phone] Yamil HERNANDEZ, Dr. Solis Other Provider Rojas HERNANDEZ, Dr. Enriquez Other Provider Seble HERNANDEZ, Dr. Hernández Other Provider Desmond HERNANDEZ, Dr. Snow Other Provider Unavailabl karma Venegas MD, Dr. Whyte Other Provider [phone] Laurent HERNANDEZ, Dr. Raya Other Provider Angely HERNANDEZ, Dr. Silver Other Provider Jazmyne NOYOLA, Dr. Cuevas Other Provider Carmela HERNANDEZ, Dr. Tam Other Provider [phone] Mallorie HERNANDEZ, Dr. Kelly Other Provider Nuzhat NOYOLA, Dr. Cooper Other Provider Rosendo HERNANDEZ, Dr. Wesley Other Provider Dylan HERNANDEZ, Dr. Colon Other Provider Raegan NOYOLA, Dr. Cabrera Other Provider Dr. Niranjan Li DO Attending Provider Dr. Rachel Joiner DO Emergency Provider Caro DO, Dr. Alejandre Admit Provider Unavail able Dr. Hill Caro DO Other Provider Unavail able Teto HERNANDEZ, Dr. Osborn Other Provider Dr. Boone Izquierdo DO Attending Provider Dr. Jae Ash DO Other Provider Karena HERNANDEZ, Dr. Andre Other Provider Abiodun HERNANDEZ, Dr. Foster Rivas Other Provider Teto HERNANDEZ, Dr. Osborn Referring Provider Nomi HERNANDEZ, Dr. Douglas Other Provider Teto HERNANDEZ, Dr. Osborn Attending Provider Dr. Jae Ash DO Attending Provider Timbo NOYOLA, Dr. Shook Other Provider DIANE CALLAHAN Attending Provider BILLDIANE Parada Referring Provider BILLDIANE Parada Other Provider Bailee BAG HANGER-C, Jasmine Attending Provider Shaun HERNANDEZ, Dr. Campo Emergency Provider Caro DO, Dr. Alejandre Attending Provider Unav ailable Care Physician, No Primary Primary Care Provider Unavailable [facility]. Delgado Attending [facility], Dr. Delgado Emergency Provider Justin NOYOLA, Dr. Aldridge Emergency Provider Mone HERNANDEZ, Dr. Maria Guadalupe Carlson Admit Provider Mone HERNANDEZ, Dr. Maria Guadalupe Carlson Referring Provider Mone HERNANDEZ, Dr. Maria Guadalupe Carlson Other Provider Dr. Rick Carlin DO Attending Provider Erin HERNANDEZ, Dr. Rocha Other Provider Zelalem HERNANEDZ, Dr. Coker Other Provider Trinidad HERNANDEZ, Dr. Gonzales Other Provider Oli HERNANDEZ, Dr. Pizarro Other Provider Kt NOYOLA, Dr. Plaza Attending Provider Dr. Bola Meraz DO Other Provider Víctor HERNANDEZ, Dr. Hill Alcaraz Other Provider [phone] Ashli HERNANDEZ, Dr. Aguilar Other Provider Missael HERNANDEZ, Dr. Cotton Other Provider Ashely HERNANDEZ, Dr. Foote Other Provider Cassandra HERNANDEZ, Dr. Garvin Other Provider Yamil HERNANDEZ, Dr. Solis Other Provider Rojas HERNANDEZ, Dr. Enriquez Other Provider Seble HERNANDEZ, Dr. Hernández Other Provider Desmond HERNANDEZ, Dr. Snow Other Provider Unavailabl karma Venegas MD, Dr. Whyte Other Provider Laurent HERNANDEZ, Dr. Raya Other Provider Angely HERNANDEZ, Dr. Silver Other Provider Jazmyne NOYOLA, Dr. Cuevas Other Provider Carmela HERNANDEZ, Dr. Tam Other Provider Mallorie HERNANDEZ, Dr. Kelly Other Provider Nuzhat NOYOLA, Dr. Cooper Other Provider Rosendo HERNANDEZ, Dr. Wesley Other Provider [phone] Dylan HERNANDEZ, Dr. Colon Other Provider Dr. Rick Carlin DO Other Provider Dr. Niranjan Li DO Attending Provider Dr. Rachel Joiner DO Emergency Provider Caro DO, Dr. Alejandre Admit Provider Unavail able Dr. Hill Caro DO Other Provider Unavail able Teto HERNANDEZ, Dr. Osborn Other Provider Dr. Boone Izquierdo DO Attending Provider Dr. Jae Ash DO Other Provider Karena HERNANDEZ, Dr. Andre Other Provider Abiodun HERNANDEZ, Dr. Foster Rivas Other Provider Dr. Anurag Irene MD Referring Provider Nomi HERNANDEZ, Dr. Douglas Other Provider [phone] Dr. Anurag Irene MD Attending Provider Dr. Jae Ash DO Attending Provider Dr. Boone Izquierdo DO Other Provider BILLTREY ParadaA Attending Provider BILLKarmaDIANE Referring Provider BILLTREY ParadaA Other Provider Bailee BAG HANGER-C, Jasmine Attending Provider Shaun HERNANDEZ, Dr. Campo Emergency Provider Shila HERNANDEZ, Dr. Buster Barr Other Provider Gio HERNANDEZ, Dr. Vázquez Attending Provider Dr. Hill Acuña MD Other Provider Unavailable Dr. Hill Herrmann MD Other Provider Niles HERNANDEZ, Dr. Pinto Other Provider Nils HERNANDEZ, Dr. Das Other Provider Unavailable Saul HERNANDEZ, Dr. Seo Other Provider Field HERNANDEZ, Dr. Andre Other Provider Greg HERNANDEZ, Dr. Frances Other Provider Unavailable Belen HERNANDEZ, Dr. Soni Other Provider Dr. Scott Weston DO Other Provider Elie BAG HANGER-C, Yue Other Provider Dr. Hill Caro DO Referring Provider Unav ailable Shila HERNANDEZ, Dr. Buster Barr Attending Provider Shila HERNANDEZ, Dr. Buster Barr Referring Provider Dr. Hill Acuña MD Attending Provider Unavailestuardo Lemos MD, Dr. Vázquez Other Provider Unavailable Primary Care Provider Unavailyanick Carlson MD, Dr. Kevin Emergency Provider Dr. Jae Ash DO Admit Provider Gio HERNANDEZ, Dr. Vázquez Admit Provider Tannhof BAG HANGER-C, Josy Primary Care Provider Curt BAG HANGER-C, Josy Attending Provider KATHIE LEMOS Referring Unavailable DAY PRICE Admitting Unavailable YOUNG CRUZ Attending Unavailable Care Physician, No Primary Primary Care Provider Unavailable Curt ROSA-CJosy Referring Provider Wei NOYOLA, Dr. Shook Emergency Provider Dr. Rick Carlin DO Other Provider Jen NOYOLA, Dr. Ureña Attending Provider Zelalem HERNANDEZ, Dr. Coker Other Provider Trinidad HERNANDEZ, Dr. Gonzales Other Provider Oli HERNANDEZ, Dr. Pizarro Other Provider [phone] Kt NOYOLA, Dr. Plaza Attending Provider Kt NOYOLA, Dr. Plaza Other Provider Víctor HERNANDEZ, Dr. Hill Alcaraz Other Provider [phone] Ashli HERNANDEZ, Dr. Aguilar Other Provider Missael HERNANDEZ, Dr. Cotton Other Provider Ashely HERNANDEZ, Dr. Foote Other Provider Cassandra HERNANDEZ, Dr. Garvin Other Provider Dr. Will Lobo MD Other Provider [phone] Dr. Mina Xie MD Other Provider [phone] Dr. Betty Pruett MD Other Provider Dr. Gwendolyn Logan MD Other Provider Unavailabl karma Venegas MD, Dr. Whyte Other Provider Laurent HERNANDEZ, Dr. Raya Other Provider Dr. Nadeem Au MD Other Provider Dr. Mason Samano DO Other Provider Dr. Anel Casey MD Other Provider Dr. Robin Nobles MD Other Provider Dr. Kenneth Nolnad DO Other Provider Rosendo HERNANDEZ, Dr. Wesley Other Provider [phone] Dylan HERNANDEZ, Dr. Colon Other Provider Jeremi NOYOLA, Dr. Enriquez Emergency Provider Care Physician, No Primary Primary Care Provider Unavailable Erin HERNANDEZ, Dr. Rocha Other Provider Jen DO, Dr. Ureña Attending Provider Wei DO, Dr. Shook Attending Provider Lala DO, Dr. Pereyra Emergency Provider Shila HERNANDEZ, Dr. Buster Barr Admit Provider Rick Carlin Attending Unavailable Care Physician, No Primary Primary Care Unava ilable White, Maria Guadalupe L Referring Unavailable White, Maria Guadalupe L Admitting Unavailable White Maria Guadalupe L Consulting Unavailable Josefina Khan Consulting Unavailable Rick Carlin Consulting Unavailable Care Physician, No Primary Primary Care Unava ilable WILLOW DAVIS Referring Unavailable WILLOW DAVIS Attending Unavailable Hill Caro Admitting Unavailable Hill Caro Consulting Unavailable Boone Izquierdo Attending Unavailable Care Physician, No Primary Primary Care Unava ilable Anurag Irene Consulting Unavailable Jae Ash Consulting Unavailable Thai Thurston Consulting Unavailable Erin, Jayaprakas Consulting Unavailable Foster Rascon Consulting Unavailable Josy Elias Attending Unavailable Josy Elias Referring Unavailable Josy Elias Primary Care Unavailable John Paul Masterson Consulting Unavailable Care Physician, No Primary Primary Care Unava ilable Hill Caro Referring Unavailable Hill Caro Admitting Unavailable Bola Meraz Attending Unavailable Christian Abdi Consulting Unavailable Juarez Baird Consulting Unavailable Bola Meraz Consulting Unavailable Hill Renee Consulting Unavailable Jeff Cornelius Consulting Unavailable Yury Canas Consulting Unavailable Dary Lund Consulting UnavailBharathi East Consulting Unavailable Will Lobo Consulting Unavailable Mina Xie Consulting Unavailable Betty Pruett Consulting Unavailable Gwendolyn Logan Consulting Unavailable Mosher, Stella Consulting Unavailable Theo, Pato Consulting Unavailable IrElver hutchins Consulting Unavailable Angely, Nadeem Consulting Unavailable Jazmyne, Mason Consulting Unavailable Anel Casey Consulting Unavailable Robin Nobles Consulting Unavailable Kenneth Noland Consulting Unavailable Lupillo Robbins Consulting Unavailable Young Richardson Consulting Unavailable Hill Caro Consulting Unavailable Foster Rascon Consulting Unavailable Buster Fuchs Consulting Unavailable Buster Fuchs Attending Unavailable Buster uFchs Referring Unavailable Ra Jenhsaan Attending Unavailable Anurag Irene Attending Unavailable Jae Ash Admitting Unavailable Jae Ash Consulting Unavailable Care Physician, No Primary Primary Care Unava ilable Anurag Irene Consulting Unavailable Hill Acuña Attending Unavailable Kathie Lemos Consulting Unavailable Kathie Lemos Admitting Unavailable Care Physician, No Primary Primary Care Unava ilable Thai Thurston Consulting Unavailable Hill Acuña Consulting Unavailable Jae Ash Attending Unavailable Jae Ash Admitting Unavailable Jae Ash Consulting Unavailable Care Physician, No Primary Primary Care Unava ilable Anurag Irene Attending Unavailable Anurag Irene Consulting Unavailable Kathie Lemos Attending Unavailable Buster Fuchs Attending Unavailable Buster Fuchs Consulting Unavailable Buster Fuchs Admitting Unavailable Josy Elias Primary Care Unavailable Hill Acuña Attending Unavailable Hill Acuña Consulting Unavailable Care Physician, No Primary Primary Care Unava ilable Hill Caro Consulting Unavailable Hill Caro Admitting Unavailable Kathie Lemos Attending Unavailable Foster Rascon Consulting Unavailable Buster Fuchs Consulting Unavailable Hill Acuña Consulting Unavailable Hill Herrmann Consulting Unavailable Blair Cage Consulting Unavailable WrayThiago hanson Consulting Unavailable IscGabbi howell Consulting Unavailable Thai Godfrey Consulting Unavailable Juan Daniel Garza Consulting Unavailable Zachariah Glover Consulting Unavailable Scott Weston Consulting Unavailable Yue Delgadillo Consulting Unavailable Rick Carlin Attending Unavailable Care Physician, No Primary Primary Care Unava ilable Maria Guadalupe Shore L Referring Unavailable WhiteMaria Guadalupe L Consulting Unavailable WhiteMaria Guadalupe L Admitting Unavailable Josefina Khan Consulting Unavailable Care Physician, No Primary Primary Care Unava ilable WILLOW DAVIS Attending Unavailable WILLOW DAVIS Referring Unavailable Niranjan Li Attending Unavailable Hill Caro Admitting Unavailable Boone Izquierdo Attending Unavailable Foster Rascon Consulting Unavailable Care Physician, No Primary Primary Care Unava ilable Hill Caro Consulting Unavailable Thai Thurston Consulting Unavailable Josefina Khan Consulting Unavailable Anurag Irene Consulting Unavailable Jae Ash Consulting Unavailable Boone Izquierdo Consulting Unavailable Hill Caro Attending Unavailable Anurag Irnee Attending Unavailable John Paul Masterson Consulting Unavailable Trinidad, Christian Consulting Unavailable Juarez Baird Consulting Unavailable Bola Meraz Consulting Unavailable Hill Renee Consulting Unavailable Jeff Cornelius Consulting Unavailable Missael, Yury Consulting Unavailable HabteDelbert bensonanos Consulting Unavailab maría Danuli, Bharathi Consulting Unavailable Lobo, Will Consulting Unavailable Mina Xie Consulting Unavailable Seble, Betty Consulting Unavailable Aljundi, Lamia Consulting Unavailable Stella Mosher Consulting Unavailable Theo, Pato Consulting Unavailable Irukulla, Elver Consulting Unavailable Angely, Nadeem Consulting Unavailable Dhesi, Mason Consulting Unavailable CaseyAnel Consulting Unavailable Polo, Soleyah Consulting Unavailable Fernstrom, Kenneth Consulting Unavailable Rosendo, Lupillo Consulting Unavailable Young Richardson Consulting Unavailable Bola Meraz Attending Unavailable Teto, Anurag Referring Unavailable John Paul Masterson Consulting Unavailable Trinidad, Christian Consulting Unavailable Juarez Baird Consulting Unavailable Bola Meraz Consulting Unavailable Hill Renee Consulting Unavailable Jeff Cornelius Consulting Unavailable Missael, Yury Consulting Unavailable Habtegemyron, Dary Consulting Unavailab le Dand, Bharathi Consulting Unavailable Lobo, Will Consulting Unavailable Mina Xie Consulting Unavailable Seble, Betty Consulting Unavailable Aljundi, Lamia Consulting Unavailable Theo, Pato Consulting Unavailable Irukulla, Elver Consulting Unavailable Angely, Nadeem Consulting Unavailable Dhesi, Mason Consulting Unavailable Casey, Sujoy Consulting Unavailable Polo, Soleyah Consulting Unavailable Fernstrom, Kenneth Consulting Unavailable Rosendo, Lupillo Consulting Unavailable Young Richardson Consulting Unavailable Bola Meraz Attending Unavailable Care Physician, No Primary Primary Care Unava ilable Danny Hutton Attending Unavailyanick e Camillef, Josy Primary Care Unavailable Boone Carvajal Attending Unavailable Mina Blood Attending Unavailable Tannhof, Josy Primary Care Unavailable Jae Ash Attending Unavailable Hill Caro Attending Unavailable Anurag Irene Attending Unavailable Jae Ash Admitting Unavailable Jae Ash Consulting Unavailable Care Physician, No Primary Primary Care Unava ilable Hill Acuña Attending Unavailable Kathie Lemos Consulting Unavailable Gio, Kathie Admitting Unavailable Care Physician, No Primary Primary Care Unava ilable Thai Thurston Consulting Unavailable Kotsonis, Buster F Consulting Unavailable Buster Fuchs F Admitting Unavailable Domenico, Hill Attending Unavailable Tannhof, Josy Primary Care Unavailable Curt, Josy Attending Unavailable Pastorhoantoinette, Josy Primary Care Unavailable Domenico, Hill Consulting Unavailable Care Physician, No Primary Primary Care Unava ilable SUSAN, WILLOW Referring Unavailable SUSAN, WILLOW Consulting Unavailable Jasmine Morocho Attending Unavailable Domenico, Hill Attending Unavailable Maria Guadalupe Shore Attending Unavailable Kathie Lemos Attending Unavailable Kathie Lemos Consulting Unavailable Hill Herrmann Consulting Unavailable Blair Cage Consulting Unavailable Wray, Thiago Consulting Unavailable Isckarus, Mansour Consulting Unavailable , Thai Consulting Unavailable Greg, Juan Daniel Consulting Unavailable Zachariah Glover Consulting Unavailable Scott Weston Consulting Unavailable Yue Delgadillo Consulting Unavailable Teto HERNANDEZ, Dr. Osborn Attending Provider Zelalem HERNANDEZ, Dr. Coker Other Provider Dr. Christian Abdi MD Other Provider Dr. Juarez Baird MD Other Provider Dr. Bola Meraz DO Attending Provider Dr. Bola Meraz DO Other Provider [phone] Dr. Hill Renee MD Other Provider Dr. Jeff Cornelius MD Other Provider Dr. Yury Canas MD Other Provider Ashely HERNANDEZ, Dr. Foote Other Provider Cassandra HERNANDEZ, Dr. Garvin Other Provider [phone] Yamil HERNANDEZ, Dr. Solis Other Provider [phone] Rojas HERNANDEZ, Dr. Enriquez Other Provider [phone] Seble HERNANDEZ, Dr. Hernández Other Provider [phone] Desmond HERNANDEZ, Dr. Snow Other Provider [facility] Mosher [facility], Dr. Douglas Other Provider [phone] Theo HERNANDEZ, Dr. Whyte Other Provider [phone] Laurent HERNANDEZ, Dr. Raya Other Provider [phone] Angely HERNANDEZ, Dr. Silver Other Provider [phone] Mason Samano DO Other Provider [phone] Carmela HERNANDEZ, Dr. Tam Other Provider [phone] Mallorie HERNANDEZ, Dr. Kelly Other Provider [phone] Kenneth Noland DO Other Provider Rosendo HERNANDEZ, Dr. Wesley Other Provider [phone] Dlyan HERNANDEZ, Dr. Colon Other Provider [phone] Medications Current Medications Medication Drug Class(es) Dates Sig (Normalized) Sig (Original) acetaminophen 500 mg oral tablet (20 sources) Start: 09-14-2024 End: 10-28-2024 Acetaminophen 50 0 mg cap Take by mouth. Active ascorbic acid 500 mg oral tablet (6 sources) Vitamin C Start: 11-25-2024 atorvastatin 40 mg oral tablet (7 sources) HMG-CoA Reductase Inhibitor Start: 11-21-2024 calcium carbonate 1250 mg / cholecalciferol 200 unt oral tablet (20 sources) Vitamin D Start: 10-28-2024 ciprofloxacin 500 mg oral tablet (1 source) Quinolone Antimicrobial take 1 tablet by mouth once daily ciprofloxacin (Cipro) 500 mg tablet Take 1 tablet (500 mg) by mouth once daily. For prophylaxis Active cyclobenzaprine hydrochloride 10 mg oral tablet (20 sources) Muscle Relaxant Start: 01-02-2025 Start: 11-21-2024 End: 12-30-2024 Start: 09-14-2024 End: 11-21-2024 Start: 08-29-2024 End: 09-02-2024 Start: 08-29-2024 End: 09-02-2024 take 1 tablet by mouth at bedtime Cyclobenzaprine 10 mg tablet Discontinued 10 mg PO AT BEDTIME August 29, 2024 1:00am September 02, 2024 3:29pm ferrous sulfate 325 mg oral tablet (1 source) take 1 tablet by bipin once daily ferrous sulfate tablet Take 1 tablet (325 mg) by mouth once daily. Active folic acid 1 mg oral tablet (20 sources) Start: 10-28-2024 Start: 08-29-2024 End: 09-02-2024 Start: 08-29-2024 End: 09-02-2024 Folic Acid 1 mg tablet Disco ntinued 1000 ug PO DAILY August 29, 2024 1:00am September 02, 2024 3:44pm furosemide 20 mg oral tablet (20 sources) Loop Diuretic Start: 11-18-2024 Start: 10-28-2024 End: 11-21-2024 Start: 10-04-2024 take 20 mg by mouth twice delmi y 20 mg, oral, 2 times daily (morning and late afternoon), First dose on Fri10/04/24 at 1720 Start: 10-04-2024 End: 11-03-2024 take 1 tablet by mouth twice daily furosemide (Lasix) 20 mg tablet Indications: Other ascites , Other cirrhosis of liver Take 1 tablet (20 mg) by mouth 2 times a day. 60 tablet 10/04/2024 11/03/2024 Active take 2 tablets by mo [facility] once daily furosemide (LASIX) 20 mg tablet Take 40 mg by mouth once daily. Suspended 3 ml insulin lispro 100 unt/ ml pen injector (20 sources) Insulin Analog Start: 09-14-2024 End: 01-05-2025 insulin lispro ( HUMALOG KWIKPEN) 100 unit/mL Inject subcutaneously three times a day before meals. Active insulin lispro 1 00 unit/mL injection Inject under the skin 4 times a day before meals. Sliding Scale Active magnesium oxide 400 mg oral tablet (7 sources) Start: 11-21-2024 24 hr metFORMIN hydrochlorid e 500 mg extended release oral tablet (10 sources) Biguanide Start: 11-21-2024 Start: 11-18-2024 take 1 tablet by bipin th once daily at dinner metFORMIN ER (GLUMETZA) 500 mg 24 hr tablet Take 1 tablet by mouth daily with dinner. 90 tablet 11 11/18/2024 Active midodrine hydrochloride 10 m g oral tablet (17 sources) alpha-Adrenergic Agonist Start: 11-25-2024 Start: 09-02-2024 End: 10-28-2024 take 1 tablet by bipin th three times daily midodrine (Proamatine) 5 mg tablet Take 1 tablet (5 mg) by mouth 3 times daily (morning, midday, late afternoon). Active nadolol 20 mg oral tablet (1 source) beta-Adrenergic Tracey Start: 01-02-2025 pantoprazole 20 mg delayed r elease oral tablet (20 sources) Proton Pump Inhibitor Start: 11-21-2024 Start: 09-02-2024 End: 11-21-2024 take 1 tablet by bipin th once daily pantoprazole DR (PROTONIX) 40 mg tablet Take 40 mg by mouth once daily. Suspended phenazopyridine hydrochloride 200 mg oral tablet (2 sources) Start: 11-18-2024 End: 11-25-2024 take 1 tablet by mouth every eight hours as needed phenazopyridine (PYRIDIUM) 200 mg tablet Take 1 tablet by mouth three times a day as needed for pain for up to 7 days. 20 tablet 11/18/2024 11/25/2024 Active rifAXIMin 550 mg oral tablet (20 sources) Rifamycin Antibacterial Start: 09-02-2024 sodium bicarbonate 650 mg oral tablet (9 sources) Start: 11-21-2024 Start: 11-18-2024 End: 12-18-2024 take 1 tablet by mouth twice daily sodium bicarbonate 650 mg tablet 1 tablet by ORAL/FEEDING TUBE route two times a day. 60 tablet 11/18/2024 12/18/2024 Active spironolactone 50 mg oral ta blet (11 sources) Aldosterone Antagonist Start: 11-21-2024 Start: 11-18-2024 take 1 tablet by bipin th once daily spironolactone (ALDACTONE) 50 mg tablet 1 tablet by ORAL/FEEDING TUBE route once daily. 90 tablet 3 11/18/2024 Active Start: 10-04-2024 End: 11-03-2024 take 0.5 tablet by mouth twice daily spironolactone (Aldactone) 25 mg tablet Indications: Other ascites , Other cirrhosis of liver Take 0.5 tablets (12.5 mg) by mouth 2 times a day. 30 tablet 10/04/2024 11/03/2024 Active spironolactone (Aldactone) split tablet 12.5 mg (1 source) Start: 10-04-2024 take 12.5 mg by mouth once 12.5 mg, oral, Once, On Fri10/04/24 at 1855, For 1 dose thiamine 100 mg oral tablet (3 sources) Start: 11-18-2024 take 1 tablet by mouth once daily thiamine (VITAMIN B1) 100 mg tablet 1 tablet by ORAL/FEEDING TUBE route once daily. 30 tablet 3 11/18/2024 Active zinc sulfate 220 mg oral tablet (10 sources) Start: 11-21-2024 Start: 11-18-2024 take 1 capsule by [facility] once daily zinc sulfate 220 mg (50 mg zinc) capsule Take 1 capsule by mouth once daily. 30 capsule 3 11/18/2024 Active (20 sources) Start: 01-05-2025 Start: 01-02-2025 Start: 12-02-2024 Start: 11-21-2024 End: 12-30-2024 Start: 11-21-2024 Start: 09-02-2024 End: 09-14-2024 Completed/Discontinued Medications Medication Drug Class(es) Dates Sig (Normalized) Sig (Original) acetaminophen 325 mg / HYDROcodone bitartrate 5 mg oral tablet (10 sources) Opioid Agonist Start: 09-02-2024 End: 09-14-2024 Start: 09-02-2024 End: 09-14-2024 Hydrocodone-Acetaminophen 5- 325 mg Tablet Discontinued 1 {tbl} PO EVERY 4 HOURS NEEDED as needed for Pain Score 1-10 30 September 02, 2024 September 14, 2024 6:37pm apixaban 5 mg oral tablet (7 sources) Factor Xa Inhibitor Start: 11-21-2024 End: 11-25-2024 cephalexin 500 mg oral capsu le (3 sources) Cephalosporin Antibacterial Start: 12-30-2024 End: 01-05-2025 doxycycline monohydrate 100 mg oral capsule (10 sources) Tetracycline-class Drug Start: 09-14-2024 End: 10-28-2024 0.8 ml enoxaparin sodium 150 mg/ml prefilled syringe (10 sources) Low Molecular Weight Heparin Start: 11-21-2024 End: 12-30-2024 Start: 11-18-2024 inject 100 mg by sub cutaneous injection every twelve hours enoxaparin (LOVENOX) 120 mg/0.8 mL injection Inject 99 mg subcutaneously every 12 hours. Inject 0.7 mL subcutaneously every 12 hours 48 mL 2 11/18/2024 Active fluconazole 200 mg oral tabl et (9 sources) Azole Antifungal Start: 11-18-2024 End: 11-27-2024 ibuprofen 800 mg oral tablet (17 sources) Nonsteroidal Anti-inflammatory Drug Start: 10-28-2024 End: 11-25-2024 take 1 tablet by bipin th every eight hours as needed ibuprofen (MOTRIN) 800 mg tablet Take 80 0 mg by mouth every 8 hours as needed for fever (specify temp.) or pain. Suspended imiquimod 50 mg/ml topical cream (6 sources) Start: 12-02-2024 End: 12-30-2024 Insulin Glargine-Yfgn 100 unit/mL (3 mL) Insulin Pen (2 sources) Start: 09-02-2024 End: 09-14-2024 Insulin Glargine-Yfgn 100 unit/mL (3 mL) Insulin Pen Discontinued 10 U SC TWICE A DAY 5 September 02, 2024 1:00am September 14, 2024 6:38pm iohexol (OMNIPaque) 350 mg iodine/mL solution 69 mL (1 source) Start: 10-04-2024 End: 10-04-2024 69 mL, intravenous, Once in imaging, Starting on Fri10/04/24 at 1417, For 1 dose lactulose 667 mg/ml oral solution (20 sources) Osmotic Laxative Start: 11-21-2024 End: 11-28-2024 Start: 11-18-2024 take 60 mL by mouth three times daily lactulose 20 gram/30 mL solution Take 60 mL by mouth three times a day. 5400 mL 3 11/18/2024 Active Start: 09-02-2024 End: 10-28-2024 take 20 g by mouth e very eight hours lactulose 20 gram/30 mL oral solution Take 30 mL (20 g) by mouth every 8 hours. Active levoFLOXacin 500 mg oral tab let (10 sources) Quinolone Antimicrobial Start: 11-25-2024 End: 01-02-2025 lidocaine 0.05 mg/mg medicat ed patch (20 sources) Antiarrhythmic, Amide Local Anesthetic Start: 08-21-2024 End: 11-28-2024 Start: 08-21-2024 End: 09-02-2024 Lidocaine (Lidoderm) 5 % adh esive patch,medicated Discontinued 3 NMA TOPICAL DAILY 15 August 21, 2024 1:00am September 02, 2024 3:31pm leave on most painful area for up to 12 hrs apply 1 dose transde rmal route every twenty-four hours lidocaine (LIDODERM) 5 % Apply 1 patch as directed every 24 hours. Active lidocaine (Lidod erm) 5 % patch Place 3 patches on the skin once daily. To lower back. Remove & discard patch within 12 hours or as directed by MD. Active 1 ml morphine sulfate 4 mg/ml prefilled syringe (2 sources) Opioid Agonist Start: 10-04-2024 End: 10-04-2024 4 mg, intravenous, Once, On Fri10/04/24 at 1525, For 1 dose ondansetron 4 mg disintegrating oral tablet (3 sources) Serotonin-3 Receptor Antagonist Start: 10-04-2024 End: 10-04-2024 take 4 mg by mouth once 4 mg, oral, Once, On Fri10/04/24 at 2115, For 1 dose Start: 10-04-2024 End: 10-04-2024 4 mg, intravenous, Once, On Fri10/04/24 at 1525, For 1 dose, When administering via IV Push, administer over 3-5 minutes. oxyCODONE hydrochloride 5 mg oral tablet (2 sources) Opioid Agonist Start: 10-04-2024 End: 10-04-2024 take 5 mg by mouth once as needed for pain 5 mg, oral, Once, On Fri10/04/24 at 1905, For 1 dose, If ordered PRN for pain, nurse is permitted to administer this medication for higher pain scores based on patient preference? Yes take 1 capsule by [facility] every six hours as needed oxyCODONE (Oxy-IR) 5 mg immediate releas e capsule Take 1 capsule (5 mg) by mouth every 6 hours if needed for severe pain (7 - 10). Active vancomycin 125 mg oral capsu le (6 sources) Glycopeptide Antibacterial Start: 12-02-2024 End: 01-05-2025 Problems Active Problems Problem Classification Problem Date Documented Da te Episodic/Chronic Abdominal pain (20 sources) Generalized abdominal pain; Translations: [Generalized abdominal pain] Onset: 10-04-2024 10-04-2024 Episodic Acute and unspecified renal failure (20 sources) Acute renal failure syndrome; Translations: [Acute kidney failure, unspecified] Onset: 01-05-2025 09-10-2024 Episodic Acute posthemorrhagic anemia (14 sources) Acute posthemorrhagic anemia; Translations: [Acute posthemorrhagic anemia] 11-21-2024 Episodic Calculus of urinary tract (20 sources) Staghorn calculus; Translations: [Calculus of kidney] Onset: 09-17-2024 09-05-2024 Episodic Chronic kidney disease (11 sources) Chronic kidney disease; Translations: [Chronic kidney disease, unspecified] Onset: 11-11-2024 11-11-2024 Chronic Coagulation and hemorrhagic disorders (14 sources) Blood coagulation disorder; Translations: [Coagulation defect, unspecified] Onset: 10-04-2024 10-04-2024 Chronic Deficiency and other anemia (11 sources) Anemia; Translations: [Anemia, unspecified] Onset: 11-11-2024 11-11-2024 Episodic Deficiency and other anemia (1 source) Anemia, unspecified; Translations: [Anemia, unspecified type] Onset: 11-11-2024 Episodic Diabetes mellitus without complication (3 sources) Insulin treated type 2 diabetes mellitus; Translations: [Type 2 diabetes mellitus without complications] 12-30-2024 Chronic Diabetes mellitus without complication (3 sources) Hyperglycemia; Translations: [Hyperglycemia, unspecified] 12-30-2024 Episodic Diseases of white blood cells (20 sources) Leukocytosis; Translations: [Elevated white blood cell count, unspecified] Onset: 11-11-2024 09-23-2024 Chronic E Codes: Fall (16 sources) Fall; Translations: [Unspecified fall, initial encounter] Onset: 01-05-2025 08-29-2024 Episodic Fluid and electrolyte disorders (20 sources) Lactic acidosis; Translations: [Lactic acidosis] Onset: 11-11-2024 09-23-2024 Episodic Genitourinary symptoms and ill-defined conditions (14 sources) Blood in urine; Translations: [Hematuria, unspecified] 11-21-2024 Episodic Hepatitis (20 sources) Cirrhosis - non-alcoholic; 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 (BOYER)] Onset: 09-17-2024 09-23-2024 Chronic Intestinal infection (20 sources) Clostridium difficile colitis; Translations: [Enterocolitis due to Clostridium difficile, not specified as recurrent] Onset: 11-11-2024 Resolved: 11-18-2024 10-30-2024 Episodic Malaise and fatigue (20 sources) Asthenia; Translations: [Weakness] Onset: 11-11-2024 09-05-2024 Episodic Nonspecific chest pain (4 sources) Chest pain; Translations: [Chest pain, unspecified] Onset: 01-06-2025 12-30-2024 Episodic Other and unspecified benign neoplasm (5 sources) Multiple benign melanocytic nevi ; Translations: [Melanocytic nevi, unspecified] Onset: 11-14-2024 11-14-2024 Episodic Other circulatory disease (20 sources) Chronic hypotension; Translations: [Other hypotension] Onset: 11-11-2024 09-23-2024 Episodic Other circulatory disease (20 sources) Low blood pressure; Translations: [Hypotension, unspecified] 09-10-2024 Episodic Other circulatory disease (1 source) Hypotension, unspecified; Translations: [Hypotension, unspecified] Onset: 11-11-2024 Episodic Other diseases of kidney and ureters (20 sources) Renal impairment; Translations: [Disorder of kidney and ureter, unspecified] 09-23-2024 Episodic Other gastrointestinal disorders (20 sources) Ascites; Translations: [Other ascites] Onset: 10-04-2024 10-04-2024 Episodic Other gastrointestinal disorders (4 sources) Other ascites; Translations: [Other ascites] Onset: 10-04-2024 Episodic Other gastrointestinal disorders (18 sources) Diarrhea; Translations: [Diarrhea, unspecified] 10-29-2024 Episodic Other gastrointestinal disorders (1 source) Diarrhea, unspecified; Translations: [Diarrhea, unspecified] Onset: 11-11-2024 Episodic Other liver diseases (20 sources) Cirrhosis of liver; Translations: [Unspecified cirrhosis of liver] Onset: 11-11-2024 10-04-2024 Chronic Other liver diseases (2 sources) Other cirrhosis of liver; Translations: [Other cirrhosis of liver] Onset: 10-04-2024 Chronic Other liver diseases (4 sources) Unspecified cirrhosis of liver; Translations: [Unspecified cirrhosis of liver (Multi)] Onset: 10-04-2024 Chronic Other liver diseases (11 sources) Portal hypertension; Translations: [Portal hypertension] Onset: 11-11-2024 11-11-2024 Chronic Other nervous system disorders (20 sources) Walking disability; Translations: [Difficulty in walking, not elsewhere classified] Onset: 11-11-2024 09-05-2024 Chronic Other nervous system disorders (20 sources) Metabolic encephalopathy; Translations: [Metabolic encephalopathy] 09-23-2024 Chronic Other nervous system disorders (1 source) Other chronic pain; Translations: [Other chronic pain] Onset: 11-11-2024 Chronic Other nervous system disorders (1 source) Metabolic encephalopathy; Translations: [Metabolic encephalopathy] Onset: 09-17-2024 Chronic Other nervous system disorders (1 source) Difficulty in walking, not elsewhere classified; Translations: [Difficulty in walking, not elsewhere classified] Onset: 09-17-2024 Chronic Other nutritional; endocrine; and metabolic disorders (20 sources) Hyperbilirubinemia; Translations: [Other disorders of bilirubin metabolism] 10-04-2024 Chronic Other nutritional; endocrine; and metabolic disorders (3 sources) Other disorders of bilirubin metabolism; Translations: [Other disorders of bilirubin metabolism] Onset: 09-17-2024 Chronic Other nutritional; endocrine; and metabolic disorders (20 sources) Body mass index 30+ - obesity; Translations: [Obesity, unspecified] 09-23-2024 Chronic Other nutritional; endocrine; and metabolic disorders (20 sources) Obese class I; Translations: [Class 1 obesity] Onset: 11-16-2024 10-29-2024 Chronic Other nutritional; endocrine; and metabolic disorders (11 sources) Obesity; Translations: [Obesity, unspecified] Onset: 11-11-2024 11-11-2024 Chronic Other nutritional; endocrine; and metabolic disorders (1 source) Obesity, unspecified; Translations: [Obesity, unspecified] Onset: 09-17-2024 Chronic Other screening for suspected conditions (not mental disorders or infectious disease) (1 source) Patient encounter status; Translations: [Encounter for screening for other disorder] 12-07-2024 Episodic Other skin disorders (5 sources) Seborrheic keratosis; Translations: [Other seborrheic keratosis] Onset: 11-14-2024 11-14-2024 Episodic Phlebitis; thrombophlebitis and thromboembolism (14 sources) Thrombosis; Translations: [Acute embolism and thrombosis of unspecified vein] Onset: 11-11-2024 11-11-2024 Episodic Residual codes; unclassified (20 sources) Obstructive sleep apnea syndrome; Translations: [Obstructive sleep apnea (adult) (pediatric)] 09-23-2024 Chronic Residual codes; unclassified (2 sources) Awaiting transplantation of liver; Translations: [Awaiting organ transplant status] 11-12-2024 Chronic Residual codes; unclassified (1 source) Obstructive sleep apnea (adult) (pediatric); Translations: [Obstructive sleep apnea (adult) (pediatric)] Onset: 09-17-2024 Chronic Residual codes; unclassified (1 source) Peripheral edema; Translations: [Localized edema] 10-04-2024 Episodic Residual codes; unclassified (2 sources) Localized edema; Translations: [Localized edema] Onset: 10-04-2024 Episodic Septicemia (except in labor) (20 sources) Sepsis; Translations: [Sepsis, unspecified organism] Onset: 11-11-2024 Resolved: 11-18-2024 10-29-2024 Episodic Shock (1 source) Severe sepsis with septic shock; Translations: [Severe sepsis with septic shock] Onset: 11-11-2024 Episodic Skin and subcutaneous tissue infections (14 sources) Cellulitis of abdominal wall ; Translations: [Cellulitis of abdominal wall] Onset: 12-04-2024 12-03-2024 Episodic Spondylosis; intervertebral disc disorders; other back problems (20 sources) Chronic back pain ; Translations: [Dorsalgia, unspecified] Onset: 09-10-2024 09-23-2024 Episodic Superficial injury; contusion (10 sources) Contusion of lower back; Translations: [Contusion of lower back and pelvis, initial encounter] 08-29-2024 Episodic Unclassified (2 sources) In the next 2 weeks as scheduled Unclassified (2 sources) Dr. Redman Unclassified (1 source) Acidosis, unspecified; Translations: [Acidosis, unspecified] Onset: 11-11-2024 Unclassified (1 source) Obesity, class 1; Translations: [Obesity, class 1] Onset: 11-11-2024 Unclassified (1 source) Low back pain, unspecified; Translations: [Low back pain, unspecified] Onset: 09-17-2024 Urinary tract infections (20 sources) Acute cystitis; Translations: [Acute cystitis with hematuria] Onset: 09-17-2024 09-23-2024 Episodic Past or Other Problems Problem Classification Problem Date Documented Da te Episodic/Chronic Other circulatory disease (1 source) Other hypotension; Translations: [Other hypotension] Onset: 09-17-2024 Episodic Other diseases of kidney and ureters (1 source) Disorder of kidney and ureter, unspecified; Translations: [Disorder of kidney and ureter, unspecified] Onset: 09-17-2024 Episodic Other injuries and conditions due to external causes (1 source) Encounter for examination and observation following other accident; Translations: [Encounter for examination and observation following other accident] Onset: 09-08-2024 Episodic Other liver diseases (20 sources) Hepatic encephalopathy; Translations: [Hepatic encephalopathy] Onset: 09-17-2024 09-10-2024 Episodic Results Test Name Value Interpretation Reference Range Facility Basic Metabolic Profile (BMP )on 01-07-2025 BUN Normal 4-19 [facility] Comment on above: Result Comment: Canc elled via OM: Order cancelled - Patient discharged Performed By: #### L 100.0100, L500.2500 ####[facility] [address] [place], [address] BUN/CRE Normal 10-20 [facility] Comment on above: Result Comment: Canc elled via OM: Order cancelled - Patient discharged Performed By: #### L 100.0100, L500.2500 ####[facility] [address] [place], [address] Calcium Normal 7.6-11.0 [facility] Comment on above: Result Comment: Canc elled via OM: Order cancelled - Patient discharged Performed By: #### L 100.0100, L500.2500 ####[facility] [address] [place], [address] CL Normal 98-108 [facility] Comment on above: Result Comment: Canc elled via OM: Order cancelled - Patient discharged Performed By: #### L 100.0100, L500.2500 ####[facility] [address] [place], [address] CO2 Normal 21.0-32.0 [facility] Comment on above: Result Comment: Canc elled via OM: Order cancelled - Patient discharged Performed By: #### L 100.0100, L500.2500 ####[facility] [address] [place], [address] CREAT,SERUM Normal 0.70-1.20 [facility] Comment on above: Result Comment: Canc elled via OM: Order cancelled - Patient discharged Performed By: #### L 100.0100, L500.2500 ####[facility] [address] [place], [address] eGFR Normal >60 [facility] Comment on above: Result Comment: Canc elled via OM: Order cancelled - Patient discharged Performed By: #### L 100.0100, L500.2500 ####[facility] [address] [place], [address] GAP Normal 5-15 [facility] Comment on above: Result Comment: Canc elled via OM: Order cancelled - Patient discharged Performed By: #### L 100.0100, L500.2500 ####[facility] [address] [place], [address] GLU Normal 70-99 [facility] Comment on above: Result Comment: Canc elled via OM: Order cancelled - Patient discharged Performed By: #### L 100.0100, L500.2500 ####[facility] [address] [place], [address] Potassium Normal 3.3-5.1 [facility] Comment on above: Result Comment: Canc elled via OM: Order cancelled - Patient discharged Performed By: #### L 100.0100, L500.2500 ####[facility] [address] [place], [address] Basic Metabolic Profile (BMP) Normal 133-145 [facility] Comment on above: Result Comment: Canc elled via OM: Order cancelled - Patient discharged Performed By: #### L 100.0100, L500.2500 ####[facility] [address] [place], [address] CBC W/Diff, Automatedon 06-0 6-2024 Absolute Neut Normal 2.0-7.7 [facility] Comment on above: Result Comment: Canc elled via OM: Order cancelled - Patient discharged Performed By: #### L 100.0100, L500.2500 ####[facility] [address] [place], [address] HCT Normal 40-54 [facility] Comment on above: Result Comment: Canc elled via OM: Order cancelled - Patient discharged Performed By: #### L 100.0100, L500.2500 ####[facility] [address] [place], [address] HGB Normal 13.0-16.5 [facility] Comment on above: Result Comment: Canc elled via OM: Order cancelled - Patient discharged Performed By: #### L 100.0100, L500.2500 ####[facility] [address] [place], [address] MCH Normal 27.0-32.0 [facility] Comment on above: Result Comment: Canc elled via OM: Order cancelled - Patient discharged Performed By: #### L 100.0100, L500.2500 ####[facility] [address] [place], [address] MCHC Normal 32-36 [facility] Comment on above: Result Comment: Canc elled via OM: Order cancelled - Patient discharged Performed By: #### L 100.0100, L500.2500 ####[facility] [address] [place], [address] MCV Normal 80-94 [facility] Comment on above: Result Comment: Canc elled via OM: Order cancelled - Patient discharged Performed By: #### L 100.0100, L500.2500 ####[facility] [address] [place], [address] NEUT% Normal 47-70 [facility] Comment on above: Result Comment: Canc elled via OM: Order cancelled - Patient discharged Performed By: #### L 100.0100, L500.2500 ####[facility] [address] [place], [address] PLT Normal 150-450 [facility] Comment on above: Result Comment: Canc elled via OM: Order cancelled - Patient discharged Performed By: #### L 100.0100, L500.2500 ####[facility] [address] [place], [address] RBC Normal 4.6-6.2 [facility] Comment on above: Result Comment: Canc elled via OM: Order cancelled - Patient discharged Performed By: #### L 100.0100, L500.2500 ####[facility] [address] [place], [address] RDW CV Normal 11.6-14.6 [facility] Comment on above: Result Comment: Canc elled via OM: Order cancelled - Patient discharged Performed By: #### L 100.0100, L500.2500 ####[facility] [address] [place], [address] RDW SD Normal 35.1-43.9 [facility] Comment on above: Result Comment: Canc elled via OM: Order cancelled - Patient discharged Performed By: #### L 100.0100, L500.2500 ####[facility] [address] [place], [address] WBC Normal 4.4-11.0 [facility] Comment on above: Result Comment: Canc elled via OM: Order cancelled - Patient discharged Performed By: #### L 100.0100, L500.2500 ####[facility] [address] [place], [address] Basic Metabolic Profile (BMP )on 01-06-2025 BUN Normal 4-19 [facility] Comment on above: Result Comment: Canc elled via OM: Order cancelled - Patient discharged Performed By: #### L 500.2500, L100.0100 ####[facility] [address] [place], [address] BUN/CRE Normal 10-20 [facility] Comment on above: Result Comment: Canc elled via OM: Order cancelled - Patient discharged Performed By: #### L 500.2500, L100.0100 ####[facility] [address] [place], [address] Calcium Normal 7.6-11.0 [facility] Comment on above: Result Comment: Canc elled via OM: Order cancelled - Patient discharged Performed By: #### L 500.2500, L100.0100 ####[facility] [address] [place], [address] CL Normal 98-108 [facility] Comment on above: Result Comment: Canc elled via OM: Order cancelled - Patient discharged Performed By: #### L 500.2500, L100.0100 ####[facility] [address] [place], [address] CO2 Normal 21.0-32.0 [facility] Comment on above: Result Comment: Canc elled via OM: Order cancelled - Patient discharged Performed By: #### L 500.2500, L100.0100 ####[facility] [address] [place], [address] CREAT,SERUM Normal 0.70-1.20 [facility] Comment on above: Result Comment: Canc elled via OM: Order cancelled - Patient discharged Performed By: #### L 500.2500, L100.0100 ####[facility] [address] [place], [address] eGFR Normal >60 [facility] Comment on above: Result Comment: Canc elled via OM: Order cancelled - Patient discharged Performed By: #### L 500.2500, L100.0100 ####[facility] [address] [place], [address] GAP Normal 5-15 [facility] Comment on above: Result Comment: Canc elled via OM: Order cancelled - Patient discharged Performed By: #### L 500.2500, L100.0100 ####[facility] [address] [place], [address] GLU Normal 70-99 [facility] Comment on above: Result Comment: Canc elled via OM: Order cancelled - Patient discharged Performed By: #### L 500.2500, L100.0100 ####[facility] [address] [place], [address] Potassium Normal 3.3-5.1 [facility] Comment on above: Result Comment: Canc elled via OM: Order cancelled - Patient discharged Performed By: #### L 500.2500, L100.0100 ####[facility] [address] [place], [address] Basic Metabolic Profile (BMP) Normal 133-145 [facility] Comment on above: Result Comment: Canc elled via OM: Order cancelled - Patient discharged Performed By: #### L 500.2500, L100.0100 ####[facility] [address] [place], [address] CBC W/Diff, Automatedon 06-0 5-2024 Absolute Neut Normal 2.0-7.7 [facility] Comment on above: Result Comment: Canc elled via OM: Order cancelled - Patient discharged Performed By: #### L 500.2500, L100.0100 ####[facility] [address] [place], [address] HCT Normal 40-54 [facility] Comment on above: Result Comment: Canc elled via OM: Order cancelled - Patient discharged Performed By: #### L 500.2500, L100.0100 ####[facility] [address] [place], [address] HGB Normal 13.0-16.5 [facility] Comment on above: Result Comment: Canc elled via OM: Order cancelled - Patient discharged Performed By: #### L 500.2500, L100.0100 ####[facility] [address] [place], [address] MCH Normal 27.0-32.0 [facility] Comment on above: Result Comment: Canc elled via OM: Order cancelled - Patient discharged Performed By: #### L 500.2500, L100.0100 ####[facility] [address] [place], [address] MCHC Normal 32-36 [facility] Comment on above: Result Comment: Canc elled via OM: Order cancelled - Patient discharged Performed By: #### L 500.2500, L100.0100 ####[facility] [address] [place], [address] MCV Normal 80-94 [facility] Comment on above: Result Comment: Canc elled via OM: Order cancelled - Patient discharged Performed By: #### L 500.2500, L100.0100 ####[facility] [address] [place], [address] NEUT% Normal 47-70 [facility] Comment on above: Result Comment: Canc elled via OM: Order cancelled - Patient discharged Performed By: #### L 500.2500, L100.0100 ####[facility] [address] [place], [address] PLT Normal 150-450 [facility] Comment on above: Result Comment: Canc elled via OM: Order cancelled - Patient discharged Performed By: #### L 500.2500, L100.0100 ####[facility] [address] [place], [address] RBC Normal 4.6-6.2 [facility] Comment on above: Result Comment: Canc elled via OM: Order cancelled - Patient discharged Performed By: #### L 500.2500, L100.0100 ####[facility] [address] [place], [address] RDW CV Normal 11.6-14.6 [facility] Comment on above: Result Comment: Canc elled via OM: Order cancelled - Patient discharged Performed By: #### L 500.2500, L100.0100 ####[facility] [address] [place], [address] RDW SD Normal 35.1-43.9 [facility] Comment on above: Result Comment: Canc elled via OM: Order cancelled - Patient discharged Performed By: #### L 500.2500, L100.0100 ####[facility] [address] [place], [address] WBC Normal 4.4-11.0 [facility] Comment on above: Result Comment: Canc elled via OM: Order cancelled - Patient discharged Performed By: #### L 500.2500, L100.0100 ####[facility] [address] [place], [address] Absolute lymphocyte countOrd ered By: Hill Acuña on 01-05-2025 Lymphocytes Auto (Unsp spec) [#/Vol] 0.94 10*3/uL 0.83-4.51 [facility] Anion gap in Serum or Plasma Ordered By: Hill Acuña on 01-05-2025 Anion gap [Moles/Vol] 9 mmol/L 5-15 [facility] Automated lymphocyte count a s percentage of total leukocytesOrdered By: Hill Acuña on 01-05-2025 Lymphocytes/100 WBC Auto (Unsp spec) 13.4 % Low 19-41 [facility] BUN/creatinine ratioOrdered By: Hill Acuña on 01-05-2025 Urea nitrogen/Creatinine [Mass ratio] 11.9 mg/mg 10- [facility] Basic Metabolic Profile (BMP )on 01-05-2025 BUN/CRE 11.9 RATIO Normal - [facility] Comment on above: Performed By: #### L 500.2500, L100.0100 ####[facility] [address] [place], [address] Calcium [Mass/Vol] 7.9 mg/dL Normal 7.6-11.0 [facility] Comment on above: Performed By: #### L 500.2500, L100.0100 ####[facility] [address] [place], [address] Chloride [Moles/Vol] 101 mmol/L Normal 98-108 [facility] Comment on above: Performed By: #### L 500.2500, L100.0100 ####[facility] [address] [place], [address] CO2 [Moles/Vol] 18.5 mmol/L Low 21.0-32.0 [facility] Comment on above: Performed By: #### L 500.2500, L100.0100 ####[facility] [address] [place], [address] Creatinine [Mass/Vol] 0.95 mg/dL Normal 0.70-1.20 [facility] Comment on above: Performed By: #### L 500.2500, L100.0100 ####[facility] [address] [place], [address] ECRCL 95.07 ml/min Normal 50-250 [facility] Comment on above: Performed By: #### L 500.2500, L100.0100 ####[facility] [address] [place], [address] GAP 9 Normal 5-15 [facility] Comment on above: Performed By: #### L 500.2500, L100.0100 ####[facility] [address] [place], [address] GFR/1.73 sq M.predicted among non-blacks MDRD (S/P/Bld) [Vol rate/Area] 92 mL/min/{1.73_m2} Normal >60 [facility] Comment on above: Result Comment: mL/m in/1.73m2 CKD-EPI Creatinine Equation (2020) Performed By: #### L 500.2500, L100.0100 ####[facility] [address] [place], [address] Glucose [Mass/Vol] 356 mg/dL High 70-99 [facility] Comment on above: Performed By: #### L 500.2500, L100.0100 ####[facility] [address] [place], [address] Potassium [Moles/Vol] 3.6 mmol/L Normal 3.3-5.1 [facility] Comment on above: Performed By: #### L 500.2500, L100.0100 ####[facility] [address] [place], [address] Sodium [Moles/Vol] 128 mmol/L Low 133-145 [facility] Comment on above: Performed By: #### L 500.2500, L100.0100 ####[facility] [address] [place], [address] Urea nitrogen [Mass/Vol] 11 mg/dL Normal 4-19 [facility] Comment on above: Performed By: #### L 500.2500, L100.0100 ####[facility] [address] [place], [address] Basophil percentageOrdered B y: Hill Acuña on 01-05-2025 Basophils/100 WBC (Bld) 0.4 % 0-1 [facility] Bedside Glucoseon 01-05-2025 FINGERSTICK GLU 163 mg/dL High 74-106 [facility] Comment on above: Result Comment: BRISA GEMENT OF PATIENT CARE PER NURSING PROTOCOL Performed By: #### L 501.080 ####[facility] [address] [place], [address] FINGERSTICK GLU 191 mg/dL High 74-106 [facility] Comment on above: Result Comment: BRISA GEMENT OF PATIENT CARE PER NURSING PROTOCOL Performed By: #### L 501.080 ####[facility] [address] [place], [address] FINGERSTICK GLU 307 mg/dL High 74-106 [facility] Comment on above: Result Comment: BRISA GEMENT OF PATIENT CARE PER NURSING PROTOCOL Performed By: #### L 501.080 ####[facility] [address] [place], [address] CBC W/Diff, Automatedon Absolute Lymph 0.94 X10 3/uL Normal 0.83-4.51 [facility] Comment on above: Performed By: #### L 500.2500, L100.0100 ####[facility] [address] [place], [address] Absolute Neut 4.8 X10 3/uL Normal 2.0-7.7 [facility] Comment on above: Performed By: #### L 500.2500, L100.0100 ####[facility] [address] [place], [address] Basophils/100 WBC (Bld) 0.4 % Normal 0-1 [facility] Comment on above: Performed By: #### L 500.2500, L100.0100 ####[facility] [address] [place], [address] Eosinophils/100 WBC (Bld) 5.1 % High 0-5 [facility] Comment on above: Performed By: #### L 500.2500, L100.0100 ####[facility] [address] [place], [address] Erythrocyte distribution width (RBC) [Ratio] 16.4 % High 11.6-14.6 [facility] Comment on above: Performed By: #### L 500.2500, L100.0100 ####[facility] [address] [place], [address] Hematocrit (Bld) [Volume fraction] 22.3 % Low 40-54 [facility] Comment on above: Performed By: #### L 500.2500, L100.0100 ####[facility] [address] [place], [address] Hemoglobin (Bld) [Mass/Vol] 7.5 g/dL Low 13.0-16.5 [facility] Comment on above: Performed By: #### L 500.2500, L100.0100 ####[facility] [address] [place], [address] IG% 0.400 Normal 0.0-0.9 [facility] Comment on above: Result Comment: IG% - Immature Granulocytes (promyelocytes, myelocytes andmetamyelocytes) > 1% indicates that a LEFT SHIFT is Present. Performed By: #### L 500.2500, L100.0100 ####[facility] [address] [place], [address] Lymphocytes/100 WBC (Bld) 13.4 % Low 19-41 [facility] Comment on above: Performed By: #### L 500.2500, L100.0100 ####[facility] [address] [place], [address] MCH (RBC) [Entitic mass] 29.1 pg Normal 27.0-32.0 [facility] Comment on above: Performed By: #### L 500.2500, L100.0100 ####[facility] [address] [place], [address] MCHC (RBC) [Mass/Vol] 33.6 g/dL Normal 32-36 [facility] Comment on above: Performed By: #### L 500.2500, L100.0100 ####[facility] [address] [place], [address] MCV (RBC) [Entitic vol] 86.4 fL Normal 80-94 [facility] Comment on above: Performed By: #### L 500.2500, L100.0100 ####[facility] [address] [place], [address] Monocytes/100 WBC (Bld) 11.6 % High 0-10 [facility] Comment on above: Performed By: #### L 500.2500, L100.0100 ####[facility] [address] [place], [address] Neutrophils/100 WBC (Bld) 69.1 % Normal 47-70 [facility] Comment on above: Performed By: #### L 500.2500, L100.0100 ####[facility] [address] [place], [address] Nucleated RBC (Bld) [#/Vol] 0 10*3/uL Normal 0-5 [facility] Comment on above: Performed By: #### L 500.2500, L100.0100 ####[facility] [address] [place], [address] Platelet mean volume (Bld) [Entitic vol] 11.3 fL Normal 6.2-12.0 [facility] Comment on above: Performed By: #### L 500.2500, L100.0100 ####[facility] [address] [place], [address] Platelets (Bld) [#/Vol] 81 10*3/uL Low 150-450 [facility] Comment on above: Performed By: #### L 500.2500, L100.0100 ####[facility] [address] [place], [address] RBC (Bld) [#/Vol] 2.58 10*6/uL Low 4.6-6.2 [facility] Comment on above: Performed By: #### L 500.2500, L100.0100 ####[facility] [address] [place], [address] RDW SD 51.8 fl High 35.1-43.9 [facility] Comment on above: Performed By: #### L 500.2500, L100.0100 ####[facility] [address] [place], [address] WBC (Bld) [#/Vol] 7.0 10*3/uL Normal 4.4-11.0 [facility] Comment on above: Performed By: #### L 500.2500, L100.0100 ####[facility] [address] [place], [address] Carbon dioxide, total [Moles /volume] in Central venous bloodOrdered By: Hill Acuña on 01-05-2025 CO2 [Moles/Vol] 18.5 mmol/L Low 21.0-32.0 [facility] Chloride assayOrdered By: Kvng Acuña on 01-05-2025 Chloride [Moles/Vol] 101 mmol/L 98-108 [facility] Eosinophil percentageOrdered By: Hill Acuña on 01-05-2025 Eosinophils/100 WBC (Bld) 5.1 % High 0-5 [facility] Erythrocyte distribution wid th ratioOrdered By: Hill Acuña on 01-05-2025 Erythrocyte distribution width (RBC) [Ratio] 16.4 % High 11.6-14.6 [facility] Erythrocyte distribution wid th standard deviationOrdered By: Hill Acuña on 01-05-2025 Erythrocyte distribution width (RBC) [Ratio] 51.8 fl High 35.1-43.9 [facility] Glomerular filtration rate ( GFR) estimation/1.73 sq m using serum, plasma, or whole bOrdered By: Hill Acuña on 01-05-2025 GFR/1.73 sq M.predicted among non-blacks MDRD (S/P/Bld) [Vol rate/Area] 92 mL/min/{1.73_m2} >60 [facility] Gl[facility] at [facility] deOrdered By: Hill Acuña on 01-05-2025 Glucose [Mass/Vol] 191 mg/dL High 74-106 [facility] Hematocrit Auto (Bld) [Volum e fraction]Ordered By: Hill Acuña on 01-05-2025 Hematocrit (Bld) [Volume fraction] 22.3 % Low 40-54 [facility] Hemoglobin measurementOrdere d By: Hill Acuña on 01-05-2025 Hemoglobin (Bld) [Mass/Vol] 7.5 g/dL Low 13.0-16.5 [facility] Immature granulocytes/100 WB C Auto (Bld)Ordered By: Hill Acñua on 01-05-2025 Immature granulocytes/100 WBC (Bld) 0.400 % 0.0-0.9 [facility] MCV (mean corpuscular volume ) determinationOrdered By: Hill Acuña on 01-05-2025 MCV (RBC) [Entitic vol] 86.4 fL 80-94 [facility] Mean corpuscular hemoglobin (MCH) determinationOrdered By: Hill Acuña on 01-05-2025 MCH (RBC) [Entitic mass] 29.1 pg 27.0-32.0 [facility] Monocyte percentageOrdered B y: Hill Acuña on 01-05-2025 Monocytes/100 WBC (Bld) 11.6 % High 0-10 [facility] Neutrophil percentageOrdered By: Hill Acuña on 01-05-2025 Neutrophils/100 WBC (Bld) 69.1 % 47-70 [facility] Platelet countOrdered By: Kvng Acuña on 01-05-2025 Platelets (Bld) [#/Vol] 81 10*3/uL Low 150-450 [facility] Potassium measurement (mass/ volume)Ordered By: Hill Acuña on 01-05-2025 Potassium (Unsp spec) [Mass/Vol] 3.6 mmol/L 3.3-5.1 [facility] RBC Auto (Bld) [#/Vol]Ordere d By: Hill Acuña on 01-05-2025 RBC (Bld) [#/Vol] 2.58 10*6/uL Low 4.6-6.2 [facility] Serum creatinine measurement (mass/volume)Ordered By: Hill Acuña on 01-05-2025 Creatinine [Mass/Vol] 0.95 mg/dL 0.70-1.20 [facility] Serum glucose measurement (m ass/volume)Ordered By: Hill Acuña on 01-05-2025 Glucose [Mass/Vol] 356 mg/dL High 70-99 [facility] Serum or plasma calcium roosevelt urement (mass/volume)Ordered By: Hill Acuña on 01-05-2025 Calcium [Mass/Vol] 7.9 mg/dL 7.6-11.0 [facility] Serum or plasma urea nitroge n measurement (mass/volume)Ordered By: Hill Acuña on 01-05-2025 Urea nitrogen [Mass/Vol] 11 mg/dL 4-19 [facility] Sodium levelOrdered By: Paulino Acuña on 01-05-2025 Sodium [Moles/Vol] 128 mmol/L Low 133-145 [facility] White blood cell (WBC) count Ordered By: Hill Acuña on 01-05-2025 WBC (Bld) [#/Vol] 7.0 10*3/uL 4.4-11.0 [facility] Bedside Glucoseon 01-04-2025 FINGERSTICK GLU 369 mg/dL High -[address] [place] [address] Comment on above: Result Comment: BRISA GEMENT OF PATIENT CARE PER NURSING PROTOCOL Performed By: #### L 501.080 ####[facility] [address] [place], [address] FINGERSTICK GLU 320 mg/dL High [address] [place] [address] Comment on above: Result Comment: BRISA GEMENT OF PATIENT CARE PER NURSING PROTOCOL Performed By: #### L 501.080 ####[facility] [address] [place], [address] FINGERSTICK GLU 256 mg/dL High [address] [place] [address] Comment on above: Result Comment: BRISA GEMENT OF PATIENT CARE PER NURSING PROTOCOL Performed By: #### L 501.080 ####[facility] [address] [place], [address] FINGERSTICK GLU 331 mg/dL High [address] [place] [address] Comment on above: Result Comment: BRISA GEMENT OF PATIENT CARE PER NURSING PROTOCOL Performed By: #### L 501.080 ####[facility] [address] [place], [address] Bilirubin, totalOrdered By: Hill Acuña on 01-04-2025 Bilirubin [Mass/Vol] 0.90 mg/dL 0.00-1.30 [facility] Blood manual differential co mment interpretation (narrative result)Ordered By: Hill Acuña on 01-04-2025 Manual differential comment Marco Antonio (Bld) [Interp] SCANNED [facility] CBC-Complete Blood Cnt No Di ffon 01-04-2025 Erythrocyte distribution width (RBC) [Ratio] 17.0 % High 11.6-14.6 [facility] Comment on above: Performed By: #### L 100.0500, L501.2300, L501.5200, L500.4050, L100.4500 ####[facility] [address] [place], [address] Hematocrit (Bld) [Volume fraction] 24.6 % Low 40-54 [facility] Comment on above: Performed By: #### L 100.0500, L501.2300, L501.5200, L500.4050, L100.4500 ####[facility] [address] [place], [address] Hemoglobin (Bld) [Mass/Vol] 7.9 g/dL Low 13.0-16.5 [facility] Comment on above: Performed By: #### L 100.0500, L501.2300, L501.5200, L500.4050, L100.4500 ####[facility] [address] [place], [address] MCH (RBC) [Entitic mass] 29.2 pg Normal 27.0-32.0 [facility] Comment on above: Performed By: #### L 100.0500, L501.2300, L501.5200, L500.4050, L100.4500 ####[facility] [address] [place], [address] MCHC (RBC) [Mass/Vol] 32.1 g/dL Normal 32-36 [facility] Comment on above: Performed By: #### L 100.0500, L501.2300, L501.5200, L500.4050, L100.4500 ####[facility] [address] [place], [address] MCV (RBC) [Entitic vol] 90.8 fL Normal 80-94 [facility] Comment on above: Performed By: #### L 100.0500, L501.2300, L501.5200, L500.4050, L100.4500 ####[facility] [address] [place], [address] Platelet mean volume (Bld) [Entitic vol] 12.1 fL High 6.2-12.0 [facility] Comment on above: Performed By: #### L 100.0500, L501.2300, L501.5200, L500.4050, L100.4500 ####[facility] [address] [place], [address] Platelets (Bld) [#/Vol] 87 10*3/uL Low 150-450 [facility] Comment on above: Performed By: #### L 100.0500, L501.2300, L501.5200, L500.4050, L100.4500 ####[facility] [address] [place], [address] RBC (Bld) [#/Vol] 2.71 10*6/uL Low 4.6-6.2 [facility] Comment on above: Performed By: #### L 100.0500, L501.2300, L501.5200, L500.4050, L100.4500 ####[facility] [address] [place], [address] RDW SD 56.2 fl High 35.1-43.9 [facility] Comment on above: Performed By: #### L 100.0500, L501.2300, L501.5200, L500.4050, L100.4500 ####[facility] [address] [place], [address] WBC (Bld) [#/Vol] 6.4 10*3/uL Normal 4.4-11.0 [facility] Comment on above: Performed By: #### L 100.0500, L501.2300, L501.5200, L500.4050, L100.4500 ####[facility] [address] [place], [address] Comprehensive Metabolic Prof mden 01-04-2025 Albumin [Mass/Vol] 2.4 g/dL Low 3.5-5.0 [facility] Comment on above: Performed By: #### L 100.0500, L501.2300, L501.5200, L500.4050, L100.4500 ####[facility] [address] [place], [address] Albumin/Globulin [Mass ratio] 0.9 {ratio} Normal 0.9-2.4 [facility] Comment on above: Performed By: #### L 100.0500, L501.2300, L501.5200, L500.4050, L100.4500 ####[facility] [address] [place], [address] ALK PHOS 171 U/L High 40-129 [facility] Comment on above: Performed By: #### L 100.0500, L501.2300, L501.5200, L500.4050, L100.4500 ####[facility] [address] [place], [address] ALT [Catalytic activity/Vol] 26 U/L Normal <=46 [facility] Comment on above: Performed By: #### L 100.0500, L501.2300, L501.5200, L500.4050, L100.4500 ####[facility] [address] [place], [address] AST [Catalytic activity/Vol] 54 U/L High <=37 [facility] Comment on above: Performed By: #### L 100.0500, L501.2300, L501.5200, L500.4050, L100.4500 ####[facility] [address] [place], [address] Bilirubin [Mass/Vol] 0.90 mg/dL Normal 0.00-1.30 [facility] Comment on above: Performed By: #### L 100.0500, L501.2300, L501.5200, L500.4050, L100.4500 ####[facility] [address] [place], [address] BUN/CRE 14.6 RATIO Normal 10-20 [facility] Comment on above: Performed By: #### L 100.0500, L501.2300, L501.5200, L500.4050, L100.4500 ####[facility] [address] [place], [address] Calcium [Mass/Vol] 7.9 mg/dL Normal 7.6-11.0 [facility] Comment on above: Performed By: #### L 100.0500, L501.2300, L501.5200, L500.4050, L100.4500 ####[facility] [address] [place], [address] Chloride [Moles/Vol] 103 mmol/L Normal 98-108 [facility] Comment on above: Performed By: #### L 100.0500, L501.2300, L501.5200, L500.4050, L100.4500 ####[facility] [address] [place], [address] CO2 [Moles/Vol] 19.0 mmol/L Low 21.0-32.0 [facility] Comment on above: Performed By: #### L 100.0500, L501.2300, L501.5200, L500.4050, L100.4500 ####[facility] [address] [place], [address] Creatinine [Mass/Vol] 1.03 mg/dL Normal 0.70-1.20 [facility] Comment on above: Performed By: #### L 100.0500, L501.2300, L501.5200, L500.4050, L100.4500 ####[facility] [address] [place], [address] ECRCL 87.82 ml/min Normal 50-250 [facility] Comment on above: Performed By: #### L 100.0500, L501.2300, L501.5200, L500.4050, L100.4500 ####[facility] [address] [place], [address] GAP 9 Normal 5-15 [facility] Comment on above: Performed By: #### L 100.0500, L501.2300, L501.5200, L500.4050, L100.4500 ####[facility] [address] [place], [address] GFR/1.73 sq M.predicted among non-blacks MDRD (S/P/Bld) [Vol rate/Area] 84 mL/min/{1.73_m2} Normal >60 [facility] Comment on above: Result Comment: mL/m in/1.73m2 CKD-EPI Creatinine Equation (2020) Performed By: #### L 100.0500, L501.2300, L501.5200, L500.4050, L100.4500 ####[facility] [address] [place], [address] Globulin (S) [Mass/Vol] 2.9 g/dL Normal 2.2-4.2 [facility] Comment on above: Performed By: #### L 100.0500, L501.2300, L501.5200, L500.4050, L100.4500 ####[facility] [address] [place], [address] Glucose [Mass/Vol] 256 mg/dL High 70-99 [facility] Comment on above: Performed By: #### L 100.0500, L501.2300, L501.5200, L500.4050, L100.4500 ####[facility] [address] [place], [address] Potassium [Moles/Vol] 3.6 mmol/L Normal 3.3-5.1 [facility] Comment on above: Performed By: #### L 100.0500, L501.2300, L501.5200, L500.4050, L100.4500 ####[facility] [address] [place], [address] Sodium [Moles/Vol] 131 mmol/L Low 133-145 [facility] Comment on above: Performed By: #### L 100.0500, L501.2300, L501.5200, L500.4050, L100.4500 ####[facility] [address] [place], [address] T PROT 5.3 g/dL Low 5.9-8.4 [facility] Comment on above: Performed By: #### L 100.0500, L501.2300, L501.5200, L500.4050, L100.4500 ####[facility] [address] [place], [address] Urea nitrogen [Mass/Vol] 15 mg/dL Normal 4-19 [facility] Comment on above: Performed By: #### L 100.0500, L501.2300, L501.5200, L500.4050, L100.4500 ####[facility] [address] [place], [address] Differential Commenton 01-04 SMEAR COMMENT SCANNED Normal [facility] Comment on above: Result Comment: MODE RATE THROMBOCYTOPENIA NOTED Performed By: #### L 100.0500, L501.2300, L501.5200, L500.4050, L100.4500 ####[facility] [address] [place], [address] Magnesiumon 01-04-2025 Magnesium [Mass/Vol] 1.3 mg/dL Low 1.5-2.2 [facility] Comment on above: Performed By: #### L 100.0500, L501.2300, L501.5200, L500.4050, L100.4500 ####[facility] [address] [place], [address] Magnesium measurement (mass/ volume)Ordered By: Hill Acuña on 01-04-2025 Magnesium (Unsp spec) [Mass/Vol] 1.3 mg/dL Low 1.5-2.2 [facility] No Panel InformationOrdered By: Hill Acuña on 01-04-2025 54 U/L High <38 [facility] Phosphoruson 01-04-2025 Phosphate [Mass/Vol] 2.3 mg/dL Low 2.7-4.5 [facility] Comment on above: Performed By: #### L 100.0500, L501.2300, L501.5200, L500.4050, L100.4500 ####[facility] [address] [place], [address] Serum globulin measurementOr dered By: Hill Acuña on 01-04-2025 Globulin (S) [Mass/Vol] 2.9 g/dL 2.2-4.2 [facility] Serum or plasma alanine thomas otransferase (ALT) measurementOrdered By: Hill Acuña on 01-04-2025 ALT [Catalytic activity/Vol] 26 U/L <47 [facility] Serum or plasma albumin roosevelt urement (mass/volume)Ordered By: Hill Acuña on 01-04-2025 Albumin [Mass/Vol] 2.4 g/dL Low 3.5-5.0 [facility] Serum or plasma albumin/glob ulin mass ratioOrdered By: Hill Acuña on 01-04-2025 Albumin/Globulin [Mass ratio] 0.9 {ratio} 0.9-2.4 [facility] Serum or plasma alkaline kendrick sphatase measurementOrdered By: Hill Acuña on 01-04-2025 ALP [Catalytic activity/Vol] 171 U/L High 40-129 [facility] Total proteinOrdered By: Hugo Acuña on 01-04-2025 Protein [Mass/Vol] 5.3 g/dL Low 5.9-8.4 [facility] Urine Cultureon 01-04-2025 URC Yeast, not Mary albicans Tolley Count 11,000-25,000 Normal [facility] Comment on above: Performed By: #### M 100.2200, L400.0001 ####[facility] [address] [place], [address] Basic Metabolic Profile (BMP )on 01-03-2025 BUN/CRE 17.3 RATIO Normal 10-20 [facility] Comment on above: Performed By: #### L 500.2500, L100.0100 ####[facility] [address] [place], [address] Calcium [Mass/Vol] 8.1 mg/dL Normal 7.6-11.0 [facility] Comment on above: Performed By: #### L 500.2500, L100.0100 ####[facility] [address] [place], [address] Chloride [Moles/Vol] 101 mmol/L Normal 98-108 [facility] Comment on above: Performed By: #### L 500.2500, L100.0100 ####[facility] [address] [place], [address] CO2 [Moles/Vol] 18.2 mmol/L Low 21.0-32.0 [facility] Comment on above: Performed By: #### L 500.2500, L100.0100 ####[facility] [address] [place], [address] Creatinine [Mass/Vol] 1.70 mg/dL High 0.70-1.20 [facility] Comment on above: Performed By: #### L 500.2500, L100.0100 ####[facility] [address] [place], [address] ECRCL 52.32 ml/min Normal 50-250 [facility] Comment on above: Performed By: #### L 500.2500, L100.0100 ####[facility] [address] [place], [address] GAP 11 Normal 5-15 [facility] Comment on above: Performed By: #### L 500.2500, L100.0100 ####[facility] [address] [place], [address] GFR/1.73 sq M.predicted among non-blacks MDRD (S/P/Bld) [Vol rate/Area] 46 mL/min/{1.73_m2} Low >60 [facility] Comment on above: Result Comment: mL/m in/1.73m2 CKD-EPI Creatinine Equation (2020) Performed By: #### L 500.2500, L100.0100 ####[facility] [address] [place], [address] Glucose [Mass/Vol] 351 mg/dL High 70-99 [facility] Comment on above: Performed By: #### L 500.2500, L100.0100 ####[facility] [address] [place], [address] Potassium [Moles/Vol] 3.6 mmol/L Normal 3.3-5.1 [facility] Comment on above: Performed By: #### L 500.2500, L100.0100 ####[facility] [address] [place], [address] Sodium [Moles/Vol] 130 mmol/L Low 133-145 [facility] Comment on above: Performed By: #### L 500.2500, L100.0100 ####[facility] [address] [place], [address] Urea nitrogen [Mass/Vol] 29 mg/dL High 4-19 [facility] Comment on above: Performed By: #### L 500.2500, L100.0100 ####[facility] [address] [place], [address] Bedside Glucoseon - FINGERSTICK GLU 356 mg/dL High 74-106 [facility] Comment on above: Result Comment: BRISA GEMENT OF PATIENT CARE PER NURSING PROTOCOL Performed By: #### L 501.080 ####[facility] [address] [place], [address] FINGERSTICK GLU 483 mg/dL Invalid Interpretation Code 74-106 [facility] Comment on above: Result Comment: Insu jaye GivenMANAGEMENT OF PATIENT CARE PER NURSING PROTOCOL Performed By: #### L 501.080 ####[facility] [address] [place], [address] FINGERSTICK GLU 338 mg/dL High 74-106 [facility] Comment on above: Result Comment: BRISA GEMENT OF PATIENT CARE PER NURSING PROTOCOL Performed By: #### L 501.080 ####[facility] [address] [place], [address] FINGERSTICK GLU 322 mg/dL High 74-106 [facility] Comment on above: Result Comment: BRISA GEMENT OF PATIENT CARE PER NURSING PROTOCOL Performed By: #### L 501.080 ####[facility] [address] [place], [address] CBC W/Diff, Automatedon 06-0 Absolute Lymph 1.13 X10 3/uL Normal 0.83-4.51 [facility] Comment on above: Performed By: #### L 500.2500, L100.0100 ####[facility] [address] [place], [address] Absolute Neut 5.5 X10 3/uL Normal 2.0-7.7 [facility] Comment on above: Performed By: #### L 500.2500, L100.0100 ####[facility] [address] [place], [address] Basophils/100 WBC (Bld) 0.2 % Normal 0-1 [facility] Comment on above: Performed By: #### L 500.2500, L100.0100 ####[facility] [address] [place], [address] Eosinophils/100 WBC (Bld) 6.4 % High 0-5 [facility] Comment on above: Performed By: #### L 500.2500, L100.0100 ####[facility] [address] [place], [address] Erythrocyte distribution width (RBC) [Ratio] 16.6 % High 11.6-14.6 [facility] Comment on above: Performed By: #### L 500.2500, L100.0100 ####[facility] [address] [place], [address] Hematocrit (Bld) [Volume fraction] 24.2 % Low 40-54 [facility] Comment on above: Performed By: #### L 500.2500, L100.0100 ####[facility] [address] [place], [address] Hemoglobin (Bld) [Mass/Vol] 8.0 g/dL Low 13.0-16.5 [facility] Comment on above: Performed By: #### L 500.2500, L100.0100 ####[facility] [address] [place], [address] IG% 0.500 Normal 0.0-0.9 [facility] Comment on above: Result Comment: IG% - Immature Granulocytes (promyelocytes, myelocytes andmetamyelocytes) > 1% indicates that a LEFT SHIFT is Present. Performed By: #### L 500.2500, L100.0100 ####[facility] [address] [place], [address] Lymphocytes/100 WBC (Bld) 13.9 % Low 19-41 [facility] Comment on above: Performed By: #### L 500.2500, L100.0100 ####[facility] [address] [place], [address] MCH (RBC) [Entitic mass] 29.0 pg Normal 27.0-32.0 [facility] Comment on above: Performed By: #### L 500.2500, L100.0100 ####[facility] [address] [place], [address] MCHC (RBC) [Mass/Vol] 33.1 g/dL Normal 32-36 [facility] Comment on above: Performed By: #### L 500.2500, L100.0100 ####[facility] [address] [place], [address] MCV (RBC) [Entitic vol] 87.7 fL Normal 80-94 [facility] Comment on above: Performed By: #### L 500.2500, L100.0100 ####[facility] [address] [place], [address] Monocytes/100 WBC (Bld) 11.5 % High 0-10 [facility] Comment on above: Performed By: #### L 500.2500, L100.0100 ####[facility] [address] [place], [address] Neutrophils/100 WBC (Bld) 67.5 % Normal 47-70 [facility] Comment on above: Performed By: #### L 500.2500, L100.0100 ####[facility] [address] [place], [address] Nucleated RBC (Bld) [#/Vol] 0 10*3/uL Normal 0-5 [facility] Comment on above: Performed By: #### L 500.2500, L100.0100 ####[facility] [address] [place], [address] Platelet mean volume (Bld) [Entitic vol] 12.0 fL Normal 6.2-12.0 [facility] Comment on above: Performed By: #### L 500.2500, L100.0100 ####[facility] [address] [place], [address] Platelets (Bld) [#/Vol] 115 10*3/uL Low 150-450 [facility] Comment on above: Performed By: #### L 500.2500, L100.0100 ####[facility] [address] [place], [address] RBC (Bld) [#/Vol] 2.76 10*6/uL Low 4.6-6.2 [facility] Comment on above: Performed By: #### L 500.2500, L100.0100 ####[facility] [address] [place], [address] RDW SD 53.0 fl High 35.1-43.9 [facility] Comment on above: Performed By: #### L 500.2500, L100.0100 ####[facility] [address] [place], [address] WBC (Bld) [#/Vol] 8.1 10*3/uL Normal 4.4-11.0 [facility] Comment on above: Performed By: #### L 500.2500, L100.0100 ####[facility] [address] [place], [address] Abdomen/Pelvis without Conto n 01-02-2025 Abdomen/Pelvis without Cont Normal [facility] Absolute lymphocyte countOrd ered By: Roddy Reeves on 01-02-2025 Lymphocytes Auto (Unsp spec) [#/Vol] 1.55 10*3/uL 0.83-4.51 [facility] Alcohol, Blood (Medical)-Ser umon 01-02-2025 SERUM ETOH < 10.1 Normal <=10.0 [facility] Comment on above: Result Comment: This test is for medical purposes only. The legaldefinition of intoxication varies according to local law. Performed By: #### L 501.9100 ####[facility] [address] [facility] [address] Anion gap in Serum or Plasma Ordered By: Roddy Reeves on 01-02-2025 Anion gap [Moles/Vol] 17 mmol/L High 5-15 [facility] Automated lymphocyte count a s percentage of total leukocytesOrdered By: Roddy Reeves on 01-02-2025 Lymphocytes/100 WBC Auto (Unsp spec) 12.2 % Low 19-41 [facility] BUN/creatinine ratioOrdered By: Roddy Reeves on 01-02-2025 Urea nitrogen/Creatinine [Mass ratio] 12.9 mg/mg 10-20 [facility] Basophil percentageOrdered B y: Roddy Reeves on 01-02-2025 Basophils/100 WBC (Bld) 0.4 % 0-1 [facility] Bedside Glucoseon 01-02-2025 FINGERSTICK GLU 354 mg/dL High 74-106 [facility] Comment on above: Result Comment: BRISA GEMENT OF PATIENT CARE PER NURSING PROTOCOL Performed By: #### L 501.080 ####[facility] [address] [facility] [address] FINGERSTICK GLU 363 mg/dL High -[address] [place] [address] Comment on above: Result Comment: BRISA GEMENT OF PATIENT CARE PER NURSING PROTOCOL Performed By: #### L 501.080 ####[facility] [address] [facility] [address] FINGERSTICK GLU 245 mg/dL High [address] [place] [address] Comment on above: Result Comment: BRISA GEMENT OF PATIENT CARE PER NURSING PROTOCOL Performed By: #### L 501.080 ####[facility] [address] [place], [address] FINGERSTICK GLU 188 mg/dL High 74-106 [facility] Comment on above: Result Comment: BRISA MOROCHO OF PATIENT CARE PER NURSING PROTOCOL Performed By: #### L 501.080 ####[facility] [address] [place], [address] Bilirubin Test strip Ql (U)O rdered By: Roddy Reeves on 01-02-2025 Bilirubin Ql (U) Negative Negative [facility] Bilirubin, totalOrdered By: Roddy Reeves on 01-02-2025 Bilirubin [Mass/Vol] 0.90 mg/dL 0.00-1.30 [facility] Brain/Head without Contrasto n 01-02-2025 Brain/Head without Contrast Normal [facility] CBC W/Diff, Automatedon 06-0 Absolute Lymph 1.55 X10 3/uL Normal 0.83-4.51 [facility] Comment on above: Performed By: #### L 500.4050, L100.0100, L501.2450 ####[facility] [address] [place], [address] Absolute Neut 8.6 X10 3/uL High 2.0-7.7 [facility] Comment on above: Performed By: #### L 500.4050, L100.0100, L501.2450 ####[facility] [address] [place], [address] Basophils/100 WBC (Bld) 0.4 % Normal 0-1 [facility] Comment on above: Performed By: #### L 500.4050, L100.0100, L501.2450 ####[facility] [address] [place], [address] Eosinophils/100 WBC (Bld) 6.9 % High 0-5 [facility] Comment on above: Performed By: #### L 500.4050, L100.0100, L501.2450 ####[facility] [address] [place], [address] Erythrocyte distribution width (RBC) [Ratio] 16.4 % High 11.6-14.6 [facility] Comment on above: Performed By: #### L 500.4050, L100.0100, L501.2450 ####[facility] [address] [place], [address] Hematocrit (Bld) [Volume fraction] 28.0 % Low 40-54 [facility] Comment on above: Performed By: #### L 500.4050, L100.0100, L501.2450 ####[facility] [address] [place], [address] Hemoglobin (Bld) [Mass/Vol] 9.5 g/dL Low 13.0-16.5 [facility] Comment on above: Performed By: #### L 500.4050, L100.0100, L501.2450 ####[facility] [address] [place], [address] IG% 0.600 Normal 0.0-0.9 [facility] Comment on above: Result Comment: IG% - Immature Granulocytes (promyelocytes, myelocytes andmetamyelocytes) > 1% indicates that a LEFT SHIFT is Present. Performed By: #### L 500.4050, L100.0100, L501.2450 ####[facility] [address] [place], [address] Lymphocytes/100 WBC (Bld) 12.2 % Low 19-41 [facility] Comment on above: Performed By: #### L 500.4050, L100.0100, L501.2450 ####[facility] [address] [place], [address] MCH (RBC) [Entitic mass] 29.6 pg Normal 27.0-32.0 [facility] Comment on above: Performed By: #### L 500.4050, L100.0100, L501.2450 ####[facility] [address] [place], [address] MCHC (RBC) [Mass/Vol] 33.9 g/dL Normal 32-36 [facility] Comment on above: Performed By: #### L 500.4050, L100.0100, L501.2450 ####[facility] [address] [place], [address] MCV (RBC) [Entitic vol] 87.2 fL Normal 80-94 [facility] Comment on above: Performed By: #### L 500.4050, L100.0100, L501.2450 ####[facility] [address] [place], [address] Monocytes/100 WBC (Bld) 11.9 % High 0-10 [facility] Comment on above: Performed By: #### L 500.4050, L100.0100, L501.2450 ####[facility] [address] [place], [address] Neutrophils/100 WBC (Bld) 68.0 % Normal 47-70 [facility] Comment on above: Performed By: #### L 500.4050, L100.0100, L501.2450 ####[facility] [address] [place], [address] Nucleated RBC (Bld) [#/Vol] 0 10*3/uL Normal 0-5 [facility] Comment on above: Performed By: #### L 500.4050, L100.0100, L501.2450 ####[facility] [address] [place], [address] Platelet mean volume (Bld) [Entitic vol] 12.1 fL High 6.2-12.0 [facility] Comment on above: Performed By: #### L 500.4050, L100.0100, L501.2450 ####[facility] [address] [place], [address] Platelets (Bld) [#/Vol] 171 10*3/uL Normal 150-450 [facility] Comment on above: Performed By: #### L 500.4050, L100.0100, L501.2450 ####[facility] [address] [place], [address] RBC (Bld) [#/Vol] 3.21 10*6/uL Low 4.6-6.2 [facility] Comment on above: Performed By: #### L 500.4050, L100.0100, L501.2450 ####[facility] [address] [place], [address] RDW SD 51.1 fl High 35.1-43.9 [facility] Comment on above: Performed By: #### L 500.4050, L100.0100, L501.2450 ####[facility] [address] [place], [address] WBC (Bld) [#/Vol] 12.7 10*3/uL High 4.4-11.0 [facility] Comment on above: Performed By: #### L 500.4050, L100.0100, L501.2450 ####[facility] [address] [place], [address] Carbon dioxide, total [Moles /volume] in Central venous bloodOrdered By: Roddy Reeves on 01-02-2025 CO2 [Moles/Vol] 19.6 mmol/L Low 21.0-32.0 [facility] Chloride assayOrdered By: Catrachito Reeves on 01-02-2025 Chloride [Moles/Vol] 95 mmol/L Low 98-108 [facility] Comprehensive Metabolic Prof ilon 01-02-2025 Albumin [Mass/Vol] 2.8 g/dL Low 3.5-5.0 [facility] Comment on above: Performed By: #### L 500.4050, L100.0100, L501.2450 ####[facility] [address] [place], [address] Albumin/Globulin [Mass ratio] 0.8 {ratio} Low 0.9-2.4 [facility] Comment on above: Performed By: #### L 500.4050, L100.0100, L501.2450 ####[facility] [address] [place], [address] ALK PHOS 191 U/L High 40-129 [facility] Comment on above: Performed By: #### L 500.4050, L100.0100, L501.2450 ####[facility] [address] [place], [address] ALT [Catalytic activity/Vol] 23 U/L Normal <=46 [facility] Comment on above: Performed By: #### L 500.4050, L100.0100, L501.2450 ####[facility] [address] [place], [address] AST [Catalytic activity/Vol] 37 U/L Normal <=37 [facility] Comment on above: Performed By: #### L 500.4050, L100.0100, L501.2450 ####[facility] [address] [place], [address] Bilirubin [Mass/Vol] 0.90 mg/dL Normal 0.00-1.30 [facility] Comment on above: Performed By: #### L 500.4050, L100.0100, L501.2450 ####[facility] [address] [place], [address] BUN/CRE 12.9 RATIO Normal 10-20 [facility] Comment on above: Performed By: #### L 500.4050, L100.0100, L501.2450 ####[facility] [address] [place], [address] Calcium [Mass/Vol] 9.0 mg/dL Normal 7.6-11.0 [facility] Comment on above: Performed By: #### L 500.4050, L100.0100, L501.2450 ####[facility] [address] [place], [address] Chloride [Moles/Vol] 95 mmol/L Low 98-108 [facility] Comment on above: Performed By: #### L 500.4050, L100.0100, L501.2450 ####[facility] [address] [place], [address] CO2 [Moles/Vol] 19.6 mmol/L Low 21.0-32.0 [facility] Comment on above: Performed By: #### L 500.4050, L100.0100, L501.2450 ####[facility] [address] [place], [address] Creatinine [Mass/Vol] 3.54 mg/dL High 0.70-1.20 [facility] Comment on above: Performed By: #### L 500.4050, L100.0100, L501.2450 ####[facility] [address] [place], [address] ECRCL 22.75 ml/min Low 50-250 [facility] Comment on above: Performed By: #### L 500.4050, L100.0100, L501.2450 ####[facility] [address] [place], [address] GAP 17 High 5-15 [facility] Comment on above: Performed By: #### L 500.4050, L100.0100, L501.2450 ####[facility] [address] [place], [address] GFR/1.73 sq M.predicted among non-blacks MDRD (S/P/Bld) [Vol rate/Area] 19 mL/min/{1.73_m2} Low >60 [facility] Comment on above: Result Comment: mL/m in/1.73m2 CKD-EPI Creatinine Equation (2020) Performed By: #### L 500.4050, L100.0100, L501.2450 ####[facility] [address] [place], [address] Globulin (S) [Mass/Vol] 3.4 g/dL Normal 2.2-4.2 [facility] Comment on above: Performed By: #### L 500.4050, L100.0100, L501.2450 ####[facility] [address] [place], [address] Glucose [Mass/Vol] 164 mg/dL High 70-99 [facility] Comment on above: Performed By: #### L 500.4050, L100.0100, L501.2450 ####[facility] [address] [place], [address] Potassium [Moles/Vol] 2.6 mmol/L Invalid Interpretation Code 3.3-5.1 [facility] Comment on above: Result Comment: Crit ical Result(s) Called at: 0419 by:??NOREEN DOMINGUEZ Results read back by same. Performed By: #### L 500.4050, L100.0100, L501.2450 ####[facility] [address] [place], [address] Sodium [Moles/Vol] 132 mmol/L Low 133-145 [facility] Comment on above: Performed By: #### L 500.4050, L100.0100, L501.2450 ####[facility] [address] [place], [address] T PROT 6.1 g/dL Normal 5.9-8.4 [facility] Comment on above: Performed By: #### L 500.4050, L100.0100, L501.2450 ####[facility] [address] [place], [place], [address] Urea nitrogen [Mass/Vol] 46 mg/dL High 4-19 [facility] Comment on above: Performed By: #### L 500.4050, L100.0100, L501.2450 ####[facility] [address] [place], [place], [address] Emergency Department Summary on 01-02-2025 Emergency Department Summary Normal [facility] Eosinophil percentageOrdered By: Roddy Reeves on 01-02-2025 Eosinophils/100 WBC (Bld) 6.9 % High 0-5 [facility] Erythrocyte distribution wid th ratioOrdered By: Roddy Reeves on 01-02-2025 Erythrocyte distribution width (RBC) [Ratio] 16.4 % High 11.6-14.6 [facility] Erythrocyte distribution wid th standard deviationOrdered By: Roddy Reeves on 01-02-2025 Erythrocyte distribution width (RBC) [Ratio] 51.1 fl High 35.1-43.9 [facility] Glomerular filtration rate ( GFR) estimation/1.73 sq m using serum, plasma, or whole bOrdered By: Roddy Reeves on 01-02-2025 GFR/1.73 sq M.predicted among non-blacks MDRD (S/P/Bld) [Vol rate/Area] 19 mL/min/{1.73_m2} Low >60 [facility] H AND P Exam - Hospitaliston 01-02-2025 H&P Exam - Hospitalist Normal [facility] Hematocrit Auto (Bld) [Volum e fraction]Ordered By: Roddy Reeves on 01-02-2025 Hematocrit (Bld) [Volume fraction] 28.0 % Low 40-54 [facility] Hemoglobin measurementOrdere d By: Roddy Reeves on 01-02-2025 Hemoglobin (Bld) [Mass/Vol] 9.5 g/dL Low 13.0-16.5 [facility] Immature granulocytes/100 WB C Auto (Bld)Ordered By: Roddy Reeves on 01-02-2025 Immature granulocytes/100 WBC (Bld) 0.600 % 0.0-0.9 [facility] Ketones Test strip Ql (U)Ord ered By: Roddy Reeves on 01-02-2025 Ketones Ql (U) 5 mg/dl High Negative [facility] Lipaseon 01-02-2025 Lipase [Catalytic activity/Vol] 45 U/L Normal 13-75 [facility] Comment on above: Result Comment: Siddhartha bhat note:LIPASE revised reference range effective 22.New Lipase methodology. Expected to produce lower valuesthan the previous assay method.NEW Reference Range: 13 - 75 U/L Performed By: #### L 500.4050, L100.0100, L501.2450 ####[facility] [address] [place], [place], [address] MCV (mean corpuscular volume ) determinationOrdered By: Roddy Reeves on 01-02-2025 MCV (RBC) [Entitic vol] 87.2 fL 80-94 [facility] Magnesiumon 01-02-2025 Magnesium [Mass/Vol] 2.0 mg/dL Normal 1.5-2.2 [facility] Comment on above: Performed By: #### L 501.5200 ####[facility] [address] [place], [address] Magnesium measurement (mass/ volume)Ordered By: Roddy Reeves on 01-02-2025 Magnesium (Unsp spec) [Mass/Vol] 2.0 mg/dL 1.5-2.2 [facility] Mean corpuscular hemoglobin (MCH) determinationOrdered By: Roddy Reeves on 01-02-2025 MCH (RBC) [Entitic mass] 29.6 pg 27.0-32.0 [facility] Monocyte percentageOrdered B y: Roddy Reeves on 01-02-2025 Monocytes/100 WBC (Bld) 11.9 % High 0-10 [facility] Mucus LM Ql (Urine sed)Order ed By: Roddy Reeves on 01-02-2025 Mucus Ql (Urine sed) 0 SEEN /hpf [facility] Neutrophil percentageOrdered By: Roddy Reeves on 01-02-2025 Neutrophils/100 WBC (Bld) 68.0 % 47-70 [facility] Nitrite Test strip Ql (U)Ord ered By: Roddy Reeves on 01-02-2025 Nitrite Ql (U) Negative Negative [facility] No Panel InformationOrdered By: Roddy Reeves on 01-02-2025 37 U/L <38 [facility] Platelet countOrdered By: Catrachito Reeves on 01-02-2025 Platelets (Bld) [#/Vol] 171 10*3/uL 150-450 [facility] Potassium measurement (mass/ volume)Ordered By: Roddy Reeves on 01-02-2025 Potassium (Unsp spec) [Mass/Vol] 2.6 mmol/L Low 3.3-5.1 [facility] Protein Test strip Ql (U)Ord ered By: Roddy Reeves on 01-02-2025 Protein Ql (U) 100 mg/dl High Negative [facility] RBC Auto (Bld) [#/Vol]Ordere d By: Roddy Reeves on 01-02-2025 RBC (Bld) [#/Vol] 3.21 10*6/uL Low 4.6-6.2 [facility] Serum creatinine measurement (mass/volume)Ordered By: Roddy Reeves on 01-02-2025 Creatinine [Mass/Vol] 3.54 mg/dL High 0.70-1.20 [facility] Serum globulin measurementOr dered By: Roddy Reeves on 01-02-2025 Globulin (S) [Mass/Vol] 3.4 g/dL 2.2-4.2 [facility] Serum glucose measurement (m ass/volume)Ordered By: Roddy Reeves on 01-02-2025 Glucose [Mass/Vol] 164 mg/dL High 70-99 [facility] Serum or plasma alanine thomas otransferase (ALT) measurementOrdered By: Roddy Reeves on 01-02-2025 ALT [Catalytic activity/Vol] 23 U/L <47 [facility] Serum or plasma albumin roosevelt urement (mass/volume)Ordered By: Roddy Reeves on 01-02-2025 Albumin [Mass/Vol] 2.8 g/dL Low 3.5-5.0 [facility] Serum or plasma albumin/glob ulin mass ratioOrdered By: Roddy Reeves on 01-02-2025 Albumin/Globulin [Mass ratio] 0.8 {ratio} Low 0.9-2.4 [facility] Serum or plasma alkaline kendrick sphatase measurementOrdered By: Roddy Reeves on 01-02-2025 ALP [Catalytic activity/Vol] 191 U/L High 40-129 [facility] Serum or plasma calcium roosevelt urement (mass/volume)Ordered By: Roddy Reeves on 01-02-2025 Calcium [Mass/Vol] 9.0 mg/dL 7.6-11.0 [facility] Serum or plasma ethanol roosevelt urement (mass/volume)Ordered By: Roddy Reeves on 01-02-2025 Ethanol [Mass/Vol] mg/dL <10.1 [facility] Serum or plasma urea nitroge n measurement (mass/volume)Ordered By: Roddy Reeves on 01-02-2025 Urea nitrogen [Mass/Vol] 46 mg/dL High 4-19 [facility] Sodium levelOrdered By: Valentín Reeves on 01-02-2025 Sodium [Moles/Vol] 132 mmol/L Low 133-145 [facility] Spine Cervical without Contr ason 01-02-2025 Spine Cervical without Contras Normal [facility] Squamous epithelial cells de tection in urine sediment by light microscopyOrdered By: Roddy Reeves on 01-02-2025 Epithelial cells.squamous LM Ql (Urine sed) 0 SEEN /hpf 0-5 [facility] Total proteinOrdered By: Zoila Reeves on 01-02-2025 Protein [Mass/Vol] 6.1 g/dL 5.9-8.4 [facility] Urinalysis, Completeon 01-02 BACTERIA 3+ /hpf Normal None Seen [facility] Comment on above: Order Comment: COLOR OF URINE MAY AFFECT DIPSTICK RESULTS.CLEAN CATCH Performed By: #### M 100.2200, L400.0001 ####[facility] [address] [place], [address] RBC > 100 SEEN Normal 0-5 [facility] Comment on above: Order Comment: COLOR OF URINE MAY AFFECT DIPSTICK RESULTS.CLEAN CATCH Performed By: #### M 100.2200, L400.0001 ####[facility] [address] [place], [address] WBC 25-50 SEEN Normal 0-5 [facility] Comment on above: Order Comment: COLOR OF URINE MAY AFFECT DIPSTICK RESULTS.CLEAN CATCH Performed By: #### M 100.2200, L400.0001 ####[facility] [address] [place], [address] BILIRUBIN URINE Negative Normal Negative [facility] Comment on above: Order Comment: COLOR OF URINE MAY AFFECT DIPSTICK RESULTS.CLEAN CATCH Performed By: #### M 100.2200, L400.0001 ####[facility] [address] [place], [address] Clarity (U) Turbid Normal Clear [facility] Comment on above: Order Comment: COLOR OF URINE MAY AFFECT DIPSTICK RESULTS.CLEAN CATCH Performed By: #### M 100.2200, L400.0001 ####[facility] [address] [place], [address] Color (U) Red Normal Yellow [facility] Comment on above: Order Comment: COLOR OF URINE MAY AFFECT DIPSTICK RESULTS.CLEAN CATCH Performed By: #### M 100.2200, L400.0001 ####[facility] [address] [place], [address] GLUCOSE, UR Normal Normal Normal [facility] Comment on above: Order Comment: COLOR OF URINE MAY AFFECT DIPSTICK RESULTS.CLEAN CATCH Performed By: #### M 100.2200, L400.0001 ####[facility] [address] [place], [address] KETONE UR 5 mg/dl Abnormal Negative [facility] Comment on above: Order Comment: COLOR OF URINE MAY AFFECT DIPSTICK RESULTS.CLEAN CATCH Performed By: #### M 100.2200, L400.0001 ####[facility] [address] [place], [address] LEUK ESTERASE 500 /ul Abnormal Negative [facility] Comment on above: Order Comment: COLOR OF URINE MAY AFFECT DIPSTICK RESULTS.CLEAN CATCH Performed By: #### M 100.2200, L400.0001 ####[facility] [address] [place], [address] Nitrite Ql (U) Negative Normal Negative [facility] Comment on above: Order Comment: COLOR OF URINE MAY AFFECT DIPSTICK RESULTS.CLEAN CATCH Performed By: #### M 100.2200, L400.0001 ####[facility] [address] [place], [address] OCCULT BLOOD-UR 250 /ul Abnormal Negative [facility] Comment on above: Order Comment: COLOR OF URINE MAY AFFECT DIPSTICK RESULTS.CLEAN CATCH Performed By: #### M 100.2200, L400.0001 ####[facility] [address] [place], [address] pH UR 6.0 Normal 5.0 - 8.0 [facility] Comment on above: Order Comment: COLOR OF URINE MAY AFFECT DIPSTICK RESULTS.CLEAN CATCH Performed By: #### M 100.2200, L400.0001 ####[facility] [address] [place], [address] PROT DIPSTX 100 mg/dl Abnormal Negative [facility] Comment on above: Order Comment: COLOR OF URINE MAY AFFECT DIPSTICK RESULTS.CLEAN CATCH Performed By: #### M 100.2200, L400.0001 ####[facility] [address] [place], [address] SP.GR. DIPSTX 1.015 Normal 1.002-1.030 [facility] Comment on above: Order Comment: COLOR OF URINE MAY AFFECT DIPSTICK RESULTS.CLEAN CATCH Performed By: #### M 100.2200, L400.0001 ####[facility] [address] [place], [address] UROBILI Normal Normal Normal [facility] Comment on above: Order Comment: COLOR OF URINE MAY AFFECT DIPSTICK RESULTS.CLEAN CATCH Performed By: #### M 100.2200, L400.0001 ####[facility] [address] [place], [address] EPI,SQUAMOUS 0 SEEN Normal 0-5 [facility] Comment on above: Order Comment: COLOR OF URINE MAY AFFECT DIPSTICK RESULTS.CLEAN CATCH Performed By: #### M 100.2200, L400.0001 ####[facility] [address] [place], [address] Mucus Ql (Urine sed) 0 SEEN Normal [facility] Comment on above: Order Comment: COLOR OF URINE MAY AFFECT DIPSTICK RESULTS.CLEAN CATCH Performed By: #### M 100.2200, L400.0001 ####[facility] [address] [place], [address] Urine clarityOrdered By: oZila Reeves on 01-02-2025 Clarity (U) Turbid Clear [facility] Urine color determinationOrd ered By: Roddy Reeves on 01-02-2025 Color (U) Red Yellow [facility] Urine cultureOrdered By: Zoila Reeves on 01-02-2025 Bacteria identified Cx Nom (U) Yeast, not Mary albicans Abnormal [facility] Urine glucose detectionOrder ed By: Roddy Reeves on 01-02-2025 Glucose Ql (U) Normal mg/dl Normal [facility] Urine leukocyte esterase det ection by dipstickOrdered By: Roddy Reeves on 01-02-2025 Leukocyte esterase Test strip Ql (U) 500 /ul High Negative [facility] Urine pHOrdered By: Roddy gonzalez on 01-02-2025 pH (U) 6.0 [pH] 5.0 - 8.0 [facility] Urine sediment bacteria coun t by microscopy (number/high power field)Ordered By: Roddy Reeves on 01-02-2025 Bacteria LM.HPF (Urine sed) [#/Area] 3 /[HPF] None Seen [facility] Urine specific gravity measu rementOrdered By: Roddy Reeves on 01-02-2025 Specific gravity (U) [Rel density] 1.015 1.002-1.030 [facility] Urine urobilinogen measureme ntOrdered By: Roddy Reeves on 01-02-2025 Urobilinogen Ql (U) Normal mg/dl Normal [facility] Venous blood ammonia measure mentOrdered By: Roddyniko Reeves on 01-02-2025 Ammonia (P) [Moles/Vol] 40.4 umol/L Normal 16-60 [facility] Comment on above: Performed By: #### L 503.5510 ####[facility] [address] [place], [address] White blood cell (WBC) count Ordered By: Roddy Reeves on 01-02-2025 WBC (Bld) [#/Vol] 12.7 10*3/uL High 4.4-11.0 [facility] White blood cell countOrdere d By: Roddy Reeves on 01-02-2025 White blood cell count 25-50 SEEN /hpf 0-5 [facility] Urine Cultureon 01-01-2025 URC #1 Below infection level. GPC Poss Enterococcus sp Tolley Count 1000-10,000 Mixed Gram Positive Organisms Mixed Gram Positive Organisms MIXC Mixed contaminants. Submit a new specimen if indicated. Normal [facility] Comment on above: Performed By: #### M 100.2200 ####[facility] [address] [place], [address] 12 Lead EKGon 12-30-2024 12 Lead EKG Normal [facility] Absolute lymphocyte countOrd ered By: Mina Blood on 12-30-2024 Lymphocytes Auto (Unsp spec) [#/Vol] 1.31 10*3/uL 0.83-4.51 [facility] Anion gap in Serum or Plasma Ordered By: Mina lBood on 12-30-2024 Anion gap [Moles/Vol] 15 mmol/L 5-15 [facility] Automated lymphocyte count a s percentage of total leukocytesOrdered By: Mina Blood on 12-30-2024 Lymphocytes/100 WBC Auto (Unsp spec) 14.0 % Low 19-41 [facility] BUN/creatinine ratioOrdered By: Mina Blood on 12-30-2024 Urea nitrogen/Creatinine [Mass ratio] 14.1 mg/mg 10- [facility] Basic Metabolic Profile (BMP )on 12-30-2024 BUN/CRE 14.1 RATIO Normal - [facility] Comment on above: Performed By: #### L 500.2500, L501.5200, L501.4021, L100.0100 ####[facility] [address] [place], [address] Calcium [Mass/Vol] 9.1 mg/dL Normal 7.6-11.0 [facility] Comment on above: Performed By: #### L 500.2500, L501.5200, L501.4021, L100.0100 ####[facility] [address] [place], [address] Chloride [Moles/Vol] 91 mmol/L Low 98-108 [facility] Comment on above: Performed By: #### L 500.2500, L501.5200, L501.4021, L100.0100 ####[facility] [address] [place], [address] CO2 [Moles/Vol] 22.1 mmol/L Normal 21.0-32.0 [facility] Comment on above: Performed By: #### L 500.2500, L501.5200, L501.4021, L100.0100 ####[facility] [address] [place], [address] Creatinine [Mass/Vol] 2.05 mg/dL High 0.70-1.20 [facility] Comment on above: Performed By: #### L 500.2500, L501.5200, L501.4021, L100.0100 ####[facility] [address] [place], [address] ECRCL 42.97 ml/min Low 50-250 [facility] Comment on above: Performed By: #### L 500.2500, L501.5200, L501.4021, L100.0100 ####[facility] [address] [place], [address] GAP 15 Normal 5-15 [facility] Comment on above: Performed By: #### L 500.2500, L501.5200, L501.4021, L100.0100 ####[facility] [address] [place], [address] GFR/1.73 sq M.predicted among non-blacks MDRD (S/P/Bld) [Vol rate/Area] 37 mL/min/{1.73_m2} Low >60 [facility] Comment on above: Result Comment: mL/m in/1.73m2 CKD-EPI Creatinine Equation (2020) Performed By: #### L 500.2500, L501.5200, L501.4021, L100.0100 ####[facility] [address] [place], [address] Glucose [Mass/Vol] 608 mg/dL Invalid Interpretation Code 70-99 [facility] Comment on above: Result Comment: Crit ical Result(s) Called at:0218 by: NOREEN MENDOZA TO JASON ??Results read back by same. Performed By: #### L 500.2500, L501.5200, L501.4021, L100.0100 ####[facility] [address] [place], [address] Potassium [Moles/Vol] 3.2 mmol/L Low 3.3-5.1 [facility] Comment on above: Performed By: #### L 500.2500, L501.5200, L501.4021, L100.0100 ####[facility] [address] [place], [address] Sodium [Moles/Vol] 128 mmol/L Low 133-145 [facility] Comment on above: Performed By: #### L 500.2500, L501.5200, L501.4021, L100.0100 ####[facility] [address] [place], [address] Urea nitrogen [Mass/Vol] 29 mg/dL High 4-19 [facility] Comment on above: Performed By: #### L 500.2500, L501.5200, L501.4021, L100.0100 ####[facility] [address] [place], [address] Basophil percentageOrdered B y: Mina Blood on 12-30-2024 Basophils/100 WBC (Bld) 0.4 % 0-1 [facility] Bedside Glucoseon 12-30-2024 FINGERSTICK GLU 453 mg/dL Invalid Interpretation Code 74-106 [facility] Comment on above: Result Comment: BRISA MOROCHO OF PATIENT CARE PER NURSING PROTOCOL Performed By: #### L 501.080 ####[facility] [address] [place], [address] Bilirubin Test strip Ql (U)O rdered By: Mina Blood on 12-30-2024 Bilirubin Ql (U) Negative Negative [facility] CBC W/Diff, Automatedon 12-03 Absolute Lymph 1.31 X10 3/uL Normal 0.83-4.51 [facility] Comment on above: Performed By: #### L 500.2500, L501.5200, L501.4021, L100.0100 ####[facility] [address] [place], [address] Absolute Neut 6.5 X10 3/uL Normal 2.0-7.7 [facility] Comment on above: Performed By: #### L 500.2500, L501.5200, L501.4021, L100.0100 ####[facility] [address] [place], [address] Basophils/100 WBC (Bld) 0.4 % Normal 0-1 [facility] Comment on above: Performed By: #### L 500.2500, L501.5200, L501.4021, L100.0100 ####[facility] [address] [place], [address] Eosinophils/100 WBC (Bld) 6.2 % High 0-5 [facility] Comment on above: Performed By: #### L 500.2500, L501.5200, L501.4021, L100.0100 ####[facility] [address] [place], [address] Erythrocyte distribution width (RBC) [Ratio] 16.1 % High 11.6-14.6 [facility] Comment on above: Performed By: #### L 500.2500, L501.5200, L501.4021, L100.0100 ####[facility] [address] [place], [address] Hematocrit (Bld) [Volume fraction] 25.8 % Low 40-54 [facility] Comment on above: Performed By: #### L 500.2500, L501.5200, L501.4021, L100.0100 ####[facility] [address] [place], [address] Hemoglobin (Bld) [Mass/Vol] 8.7 g/dL Low 13.0-16.5 [facility] Comment on above: Performed By: #### L 500.2500, L501.5200, L501.4021, L100.0100 ####[facility] [address] [place], [address] IG% 0.600 Normal 0.0-0.9 [facility] Comment on above: Result Comment: IG% - Immature Granulocytes (promyelocytes, myelocytes andmetamyelocytes) > 1% indicates that a LEFT SHIFT is Present. Performed By: #### L 500.2500, L501.5200, L501.4021, L100.0100 ####[facility] [address] [place], [address] Lymphocytes/100 WBC (Bld) 14.0 % Low 19-41 [facility] Comment on above: Performed By: #### L 500.2500, L501.5200, L501.4021, L100.0100 ####[facility] [address] [place], [address] MCH (RBC) [Entitic mass] 29.7 pg Normal 27.0-32.0 [facility] Comment on above: Performed By: #### L 500.2500, L501.5200, L501.4021, L100.0100 ####[facility] [address] [place], [address] MCHC (RBC) [Mass/Vol] 33.7 g/dL Normal 32-36 [facility] Comment on above: Performed By: #### L 500.2500, L501.5200, L501.4021, L100.0100 ####[facility] [address] [place], [address] MCV (RBC) [Entitic vol] 88.1 fL Normal 80-94 [facility] Comment on above: Performed By: #### L 500.2500, L501.5200, L501.4021, L100.0100 ####[facility] [address] [place], [address] Monocytes/100 WBC (Bld) 9.1 % Normal 0-10 [facility] Comment on above: Performed By: #### L 500.2500, L501.5200, L501.4021, L100.0100 ####[facility] [address] [place], [address] Neutrophils/100 WBC (Bld) 69.7 % Normal 47-70 [facility] Comment on above: Performed By: #### L 500.2500, L501.5200, L501.4021, L100.0100 ####[facility] [address] [place], [address] Nucleated RBC (Bld) [#/Vol] 0 10*3/uL Normal 0-5 [facility] Comment on above: Performed By: #### L 500.2500, L501.5200, L501.4021, L100.0100 ####[facility] [address] [place], [address] Platelet mean volume (Bld) [Entitic vol] 13.4 fL High 6.2-12.0 [facility] Comment on above: Performed By: #### L 500.2500, L501.5200, L501.4021, L100.0100 ####[facility] [address] [place], [address] Platelets (Bld) [#/Vol] 131 10*3/uL Low 150-450 [facility] Comment on above: Performed By: #### L 500.2500, L501.5200, L501.4021, L100.0100 ####[facility] [address] [place], [address] RBC (Bld) [#/Vol] 2.93 10*6/uL Low 4.6-6.2 [facility] Comment on above: Performed By: #### L 500.2500, L501.5200, L501.4021, L100.0100 ####[facility] [address] [place], [address] RDW SD 50.9 fl High 35.1-43.9 [facility] Comment on above: Performed By: #### L 500.2500, L501.5200, L501.4021, L100.0100 ####[facility] [address] [place], [address] WBC (Bld) [#/Vol] 9.4 10*3/uL Normal 4.4-11.0 [facility] Comment on above: Performed By: #### L 500.2500, L501.5200, L501.4021, L100.0100 ####[facility] [address] [place], [address] Carbon dioxide, total [Moles /volume] in Central venous bloodOrdered By: Mina Blood on 12-30-2024 CO2 [Moles/Vol] 22.1 mmol/L 21.0-32.0 [facility] Chest PA and Lateralon 12-30 Chest PA and Lateral Normal [facility] Chloride assayOrdered By: Marcella Blood on 12-30-2024 Chloride [Moles/Vol] 91 mmol/L Low 98-108 [facility] Emergency Department Summary on 12-30-2024 Emergency Department Summary Normal [facility] Eosinophil percentageOrdered By: Mina Blood on 12-30-2024 Eosinophils/100 WBC (Bld) 6.2 % High 0-5 [facility] Erythrocyte distribution wid th ratioOrdered By: Mina Blood on 12-30-2024 Erythrocyte distribution width (RBC) [Ratio] 16.1 % High 11.6-14.6 [facility] Erythrocyte distribution wid th standard deviationOrdered By: Mina Blood on 12-30-2024 Erythrocyte distribution width (RBC) [Ratio] 50.9 fl High 35.1-43.9 [facility] Glomerular filtration rate ( GFR) estimation/1.73 sq m using serum, plasma, or whole bOrdered By: Mina Blood on 12-30-2024 GFR/1.73 sq M.predicted among non-blacks MDRD (S/P/Bld) [Vol rate/Area] 37 mL/min/{1.73_m2} Low >60 [facility] deOrdered By: Mina Blood on 12-30-2024 Glucose [Mass/Vol] 453 mg/dL High 74-106 [facility] Hematocrit Auto (Bld) [Volum e fraction]Ordered By: Mina Blood on 12-30-2024 Hematocrit (Bld) [Volume fraction] 25.8 % Low 40-54 [facility] Hemoglobin measurementOrdere d By: Mina Blood on 12-30-2024 Hemoglobin (Bld) [Mass/Vol] 8.7 g/dL Low 13.0-16.5 [facility] Immature granulocytes/100 WB C Auto (Bld)Ordered By: Mina Blood on 12-30-2024 Immature granulocytes/100 WBC (Bld) 0.600 % 0.0-0.9 [facility] Ketones Test strip Ql (U)Ord ered By: Mina Blood on 12-30-2024 Ketones Ql (U) Negative Negative [facility] L499.0042on 12-30-2024 Trop T High Sen 20 ng/L Normal <=22 [facility] Comment on above: Performed By: #### L 499.0042 ####[facility] [address] [facility] [place], [address] L501.4021on 12-30-2024 Trop T High Sen 19 ng/L Normal <=22 [facility] Comment on above: Performed By: #### L 500.2500, L501.5200, L501.4021, L100.0100 ####[facility] [address] [place], [address] MCV (mean corpuscular volume ) determinationOrdered By: Mina Blood on 12-30-2024 MCV (RBC) [Entitic vol] 88.1 fL 80-94 [facility] Magnesiumon 12-30-2024 Magnesium [Mass/Vol] 1.3 mg/dL Low 1.5-2.2 [facility] Comment on above: Performed By: #### L 500.2500, L501.5200, L501.4021, L100.0100 ####[facility] [address] [place], [address] Magnesium measurement (mass/ volume)Ordered By: Mina Blood on 12-30-2024 Magnesium (Unsp spec) [Mass/Vol] 1.3 mg/dL Low 1.5-2.2 [facility] Mean corpuscular hemoglobin (MCH) determinationOrdered By: Mina Blood on 12-30-2024 MCH (RBC) [Entitic mass] 29.7 pg 27.0-32.0 [facility] Monocyte percentageOrdered B y: Mina Blood on 12-30-2024 Monocytes/100 WBC (Bld) 9.1 % 0-10 [facility] Mucus LM Ql (Urine sed)Order ed By: Mina Blood on 12-30-2024 Mucus Ql (Urine sed) 0 SEEN /hpf [facility] Neutrophil percentageOrdered By: Mina Blood on 12-30-2024 Neutrophils/100 WBC (Bld) 69.7 % 47-70 [facility] Nitrite Test strip Ql (U)Ord ered By: Mina Blood on 12-30-2024 Nitrite Ql (U) Negative Negative [facility] Platelet countOrdered By: Marcella Blood on 12-30-2024 Platelets (Bld) [#/Vol] 131 10*3/uL Low 150-450 [facility] Potassium measurement (mass/ volume)Ordered By: Mina Blood on 12-30-2024 Potassium (Unsp spec) [Mass/Vol] 3.2 mmol/L Low 3.3-5.1 [facility] Protein Test strip Ql (U)Ord ered By: Mina Blood on 12-30-2024 Protein Ql (U) 100 mg/dl High Negative [facility] RBC Auto (Bld) [#/Vol]Ordere d By: Mina Blood on 12-30-2024 RBC (Bld) [#/Vol] 2.93 10*6/uL Low 4.6-6.2 [facility] Serum creatinine measurement (mass/volume)Ordered By: Mina Blood on 12-30-2024 Creatinine [Mass/Vol] 2.05 mg/dL High 0.70-1.20 [facility] Serum glucose measurement (m ass/volume)Ordered By: Mina Blood on 12-30-2024 Glucose [Mass/Vol] 608 mg/dL High 70-99 [facility] Serum or plasma calcium roosevelt urement (mass/volume)Ordered By: Mina Blood on 12-30-2024 Calcium [Mass/Vol] 9.1 mg/dL 7.6-11.0 [facility] Serum or plasma urea nitroge n measurement (mass/volume)Ordered By: Mina Blood on 12-30-2024 Urea nitrogen [Mass/Vol] 29 mg/dL High 4-19 [facility] Sodium levelOrdered By: Magen Blood on 12-30-2024 Sodium [Moles/Vol] 128 mmol/L Low 133-145 [facility] Squamous epithelial cells de tection in urine sediment by light microscopyOrdered By: Mina Blood on 12-30-2024 Epithelial cells.squamous LM Ql (Urine sed) 0-5 SEEN /hpf 0-5 [facility] Transitional cells detection in urine sediment by light microscopyOrdered By: Mina Blood on 12-30-2024 Transitional cells LM Ql (Urine sed) 0-5 SEEN /hpf 0-5 [facility] Troponin T.cardiac [Mass/vol ume] in Serum or Plasma by High sensitivity methodOrdered By: Mina Blood on 12-30-2024 Troponin T.cardiac High sensitivity method [Mass/Vol] 20 ng/L <22 [facility] Troponin T.cardiac High sensitivity method [Mass/Vol] 19 ng/L <22 [facility] Urinalysis, Completeon 12-30 BACTERIA 1+ /hpf Normal None Seen [facility] Comment on above: Order Comment: COLOR OF URINE MAY AFFECT DIPSTICK RESULTS.SENIOR PRODUCT INTEGRITY ENGINEER TO SPECIFY Performed By: #### L 400.0001 ####[facility] [address] [place], [address] EPI,SQUAMOUS 0-5 SEEN Normal 0-5 [facility] Comment on above: Order Comment: COLOR OF URINE MAY AFFECT DIPSTICK RESULTS.SENIOR PRODUCT INTEGRITY ENGINEER TO SPECIFY Performed By: #### L 400.0001 ####[facility] [address] [place], [address] EPI,TRANSITION 0-5 SEEN Normal 0-5 [facility] Comment on above: Order Comment: COLOR OF URINE MAY AFFECT DIPSTICK RESULTS.SENIOR PRODUCT INTEGRITY ENGINEER TO SPECIFY Performed By: #### L 400.0001 ####[facility] [address] [place], [address] RBC > 100 SEEN Normal 0-5 [facility] Comment on above: Order Comment: COLOR OF URINE MAY AFFECT DIPSTICK RESULTS.SENIOR PRODUCT INTEGRITY ENGINEER TO SPECIFY Performed By: #### L 400.0001 ####[facility] [address] [place], [address] WBC >100 SEEN Normal 0-5 [facility] Comment on above: Order Comment: COLOR OF URINE MAY AFFECT DIPSTICK RESULTS.SENIOR PRODUCT INTEGRITY ENGINEER TO SPECIFY Performed By: #### L 400.0001 ####[facility] [address] [place], [address] Mucus Ql (Urine sed) 0 SEEN Normal [facility] Comment on above: Order Comment: COLOR OF URINE MAY AFFECT DIPSTICK RESULTS.SENIOR PRODUCT INTEGRITY ENGINEER TO SPECIFY Performed By: #### L 400.0001 ####[facility] [address] [place], [address] Urine clarityOrdered By: Ever Blood on 12-30-2024 Clarity (U) Cloudy Clear [facility] Urine color determinationOrd ered By: Mina Blood on 12-30-2024 Color (U) Willow Yellow [facility] Urine cultureOrdered By: Ever Blood on 12-30-2024 Bacteria identified Cx Nom (U) GPC Poss Enterococcus sp Abnormal [facility] Bacteria identified Cx Nom (U) Positive Abnormal [facility] Urine glucose detectionOrder ed By: Mina Blood on 12-30-2024 Glucose Ql (U) 1000 mg/dl High Normal [facility] Urine leukocyte esterase det ection by dipstickOrdered By: Mina Blood on 12-30-2024 Leukocyte esterase Test strip Ql (U) 500 /ul High Negative [facility] Urine pHOrdered By: Mina Marte ndephillip on 12-30-2024 pH (U) 6.5 [pH] 5.0 - 8.0 [facility] Urine sediment bacteria coun t by microscopy (number/high power field)Ordered By: Mina Blood on 12-30-2024 Bacteria LM.HPF (Urine sed) [#/Area] 1 /[HPF] None Seen [facility] Urine specific gravity measu rementOrdered By: Mina Blood on 12-30-2024 Specific gravity (U) [Rel density] 1.010 1.002-1.030 [facility] Urine urobilinogen measureme ntOrdered By: Mina Blood on 12-30-2024 Urobilinogen Ql (U) Normal mg/dl Normal [facility] White blood cell (WBC) count Ordered By: Mina Blood on 12-30-2024 WBC (Bld) [#/Vol] 9.4 10*3/uL 4.4-11.0 [facility] White blood cell countOrdere d By: Mina Blood on 12-30-2024 White blood cell count >100 SEEN /hpf 0-5 [facility] Urine Cultureon 12-29-2024 URC Normal [facility] Comment on above: Performed By: #### M 100.2200 ####[facility] [address] [place], [place], [id number] Abdomen/Pelvis without Conto n 12-26-2024 Abdomen/Pelvis without Cont Normal [facility] Absolute lymphocyte countOrd ered By: Boone Carvajal on 12-26-2024 Lymphocytes Auto (Unsp spec) [#/Vol] 1.69 10*3/uL 0.83-4.51 [facility] Activated partial thrombopla stin time (aPTT) in platelet poor plasma by coagulation aOrdered By: Boone Carvajal on 12-26-2024 aPTT Coag (PPP) [Time] 36.3 s High 24.1-36.2 [facility] Ammoniaon 12-26-2024 Ammonia (P) [Moles/Vol] 114.0 umol/L High 16-60 [facility] Comment on above: Result Comment: Hemo lysis present, Results??could be affected.?? Performed By: #### L 500.4050, L300.4310, L503.5510, L100.0100, L501.2450, L300.3900, L501.6901 ####[facility] [address] [place], [place], [id number] Anion gap in Serum or Plasma Ordered By: Boone Carvajal on 12-26-2024 Anion gap [Moles/Vol] 14 mmol/L 5-15 [facility] Automated lymphocyte count a s percentage of total leukocytesOrdered By: Boone Carvajal on 12-26-2024 Lymphocytes/100 WBC Auto (Unsp spec) 15.3 % Low 19-41 [facility] BUN/creatinine ratioOrdered By: Boone Carvajal on 12-26-2024 Urea nitrogen/Creatinine [Mass ratio] 10.3 mg/mg 10-20 [facility] Basophil percentageOrdered B y: Boone Carvajal on 12-26-2024 Basophils/100 WBC (Bld) 0.5 % 0-1 [facility] Beta-Hydroxbytyrateon 2024 BETA-HYDROXYBUT 0.1 mmol/L Normal 0.0-0.3 [facility] Comment on above: Performed By: #### L 500.4050, L300.4310, L503.5510, L100.0100, L501.2450, L300.3900, L501.6901 ####[facility] [address] [place], [place], [id number] Beta-hydroxybutyrateOrdered By: Boone Carvajal on 12-26-2024 Beta hydroxybutyrate [Mass/Vol] 0.1 mmol/L 0.0-0.3 [facility] Bilirubin Test strip Ql (U)O rdered By: Boone Carvajal on 12-26-2024 Bilirubin Ql (U) Negative Negative [facility] Bilirubin, totalOrdered By: Boone Carvajal on 12-26-2024 Bilirubin [Mass/Vol] 1.04 mg/dL 0.00-1.30 [facility] CBC W/Diff, Automatedon 05-2 -2024 Absolute Lymph 1.69 X10 3/uL Normal 0.83-4.51 [facility] Comment on above: Performed By: #### L 500.4050, L300.4310, L503.5510, L100.0100, L501.2450, L300.3900, L501.6901 ####[facility] [address] [place], [address] Absolute Neut 7.8 X10 3/uL High 2.0-7.7 [facility] Comment on above: Performed By: #### L 500.4050, L300.4310, L503.5510, L100.0100, L501.2450, L300.3900, L501.6901 ####[facility] [address] [place], [address] Basophils/100 WBC (Bld) 0.5 % Normal 0-1 [facility] Comment on above: Performed By: #### L 500.4050, L300.4310, L503.5510, L100.0100, L501.2450, L300.3900, L501.6901 ####[facility] [address] [place], [address] Eosinophils/100 WBC (Bld) 5.8 % High 0-5 [facility] Comment on above: Performed By: #### L 500.4050, L300.4310, L503.5510, L100.0100, L501.2450, L300.3900, L501.6901 ####[facility] [address] [place], [address] Erythrocyte distribution width (RBC) [Ratio] 16.3 % High 11.6-14.6 [facility] Comment on above: Performed By: #### L 500.4050, L300.4310, L503.5510, L100.0100, L501.2450, L300.3900, L501.6901 ####[facility] [address] [place], [address] Hematocrit (Bld) [Volume fraction] 29.6 % Low 40-54 [facility] Comment on above: Performed By: #### L 500.4050, L300.4310, L503.5510, L100.0100, L501.2450, L300.3900, L501.6901 ####[facility] [address] [place], [address] Hemoglobin (Bld) [Mass/Vol] 9.6 g/dL Low 13.0-16.5 [facility] Comment on above: Performed By: #### L 500.4050, L300.4310, L503.5510, L100.0100, L501.2450, L300.3900, L501.6901 ####[facility] [address] [place], [address] IG% 0.500 Normal 0.0-0.9 [facility] Comment on above: Result Comment: IG% - Immature Granulocytes (promyelocytes, myelocytes andmetamyelocytes) > 1% indicates that a LEFT SHIFT is Present. Performed By: #### L 500.4050, L300.4310, L503.5510, L100.0100, L501.2450, L300.3900, L501.6901 ####[facility] [address] [place], [address] Lymphocytes/100 WBC (Bld) 15.3 % Low 19-41 [facility] Comment on above: Performed By: #### L 500.4050, L300.4310, L503.5510, L100.0100, L501.2450, L300.3900, L501.6901 ####[facility] [address] [place], [address] MCH (RBC) [Entitic mass] 29.4 pg Normal 27.0-32.0 [facility] Comment on above: Performed By: #### L 500.4050, L300.4310, L503.5510, L100.0100, L501.2450, L300.3900, L501.6901 ####[facility] [address] [place], [address] MCHC (RBC) [Mass/Vol] 32.4 g/dL Normal 32-36 [facility] Comment on above: Performed By: #### L 500.4050, L300.4310, L503.5510, L100.0100, L501.2450, L300.3900, L501.6901 ####[facility] [address] [place], [address] MCV (RBC) [Entitic vol] 90.8 fL Normal 80-94 [facility] Comment on above: Performed By: #### L 500.4050, L300.4310, L503.5510, L100.0100, L501.2450, L300.3900, L501.6901 ####[facility] [address] [place], [address] Monocytes/100 WBC (Bld) 7.4 % Normal 0-10 [facility] Comment on above: Performed By: #### L 500.4050, L300.4310, L503.5510, L100.0100, L501.2450, L300.3900, L501.6901 ####[facility] [address] [place], [address] Neutrophils/100 WBC (Bld) 70.5 % High 47-70 [facility] Comment on above: Performed By: #### L 500.4050, L300.4310, L503.5510, L100.0100, L501.2450, L300.3900, L501.6901 ####[facility] [address] [place], [address] Nucleated RBC (Bld) [#/Vol] 0 10*3/uL Normal 0-5 [facility] Comment on above: Performed By: #### L 500.4050, L300.4310, L503.5510, L100.0100, L501.2450, L300.3900, L501.6901 ####[facility] [address] [place], [address] Platelet mean volume (Bld) [Entitic vol] 12.5 fL High 6.2-12.0 [facility] Comment on above: Performed By: #### L 500.4050, L300.4310, L503.5510, L100.0100, L501.2450, L300.3900, L501.6901 ####[facility] [address] [place], [address] Platelets (Bld) [#/Vol] 139 10*3/uL Low 150-450 [facility] Comment on above: Performed By: #### L 500.4050, L300.4310, L503.5510, L100.0100, L501.2450, L300.3900, L501.6901 ####[facility] [address] [place], [address] RBC (Bld) [#/Vol] 3.26 10*6/uL Low 4.6-6.2 [facility] Comment on above: Performed By: #### L 500.4050, L300.4310, L503.5510, L100.0100, L501.2450, L300.3900, L501.6901 ####[facility] [address] [place], [address] RDW SD 54.4 fl High 35.1-43.9 [facility] Comment on above: Performed By: #### L 500.4050, L300.4310, L503.5510, L100.0100, L501.2450, L300.3900, L501.6901 ####[facility] [address] [place], [address] WBC (Bld) [#/Vol] 11.0 10*3/uL Normal 4.4-11.0 [facility] Comment on above: Performed By: #### L 500.4050, L300.4310, L503.5510, L100.0100, L501.2450, L300.3900, L501.6901 ####[facility] [address] [place], [address] Carbon dioxide, total [Moles /volume] in Central venous bloodOrdered By: Boone Carvajal on 12-26-2024 CO2 [Moles/Vol] 20.4 mmol/L Low 21.0-32.0 [facility] Chloride assayOrdered By: Niko Carvajal on 12-26-2024 Chloride [Moles/Vol] 100 mmol/L 98-108 [facility] Comprehensive Metabolic Prof ilon 12-26-2024 Albumin [Mass/Vol] 2.8 g/dL Low 3.5-5.0 [facility] Comment on above: Performed By: #### L 500.4050, L300.4310, L503.5510, L100.0100, L501.2450, L300.3900, L501.6901 ####[facility] [address] [place], [address] Albumin/Globulin [Mass ratio] 0.8 {ratio} Low 0.9-2.4 [facility] Comment on above: Performed By: #### L 500.4050, L300.4310, L503.5510, L100.0100, L501.2450, L300.3900, L501.6901 ####[facility] [address] [place], [address] ALK PHOS 207 U/L High 40-129 [facility] Comment on above: Performed By: #### L 500.4050, L300.4310, L503.5510, L100.0100, L501.2450, L300.3900, L501.6901 ####[facility] [address] [place], [address] ALT [Catalytic activity/Vol] 27 U/L Normal <=46 [facility] Comment on above: Performed By: #### L 500.4050, L300.4310, L503.5510, L100.0100, L501.2450, L300.3900, L501.6901 ####[facility] [address] [place], [address] AST [Catalytic activity/Vol] 58 U/L High <=37 [facility] Comment on above: Result Comment: Hemo lysis present, Results??could be affected.?? Performed By: #### L 500.4050, L300.4310, L503.5510, L100.0100, L501.2450, L300.3900, L501.6901 ####[facility] [address] [place], [address] Bilirubin [Mass/Vol] 1.04 mg/dL Normal 0.00-1.30 [facility] Comment on above: Performed By: #### L 500.4050, L300.4310, L503.5510, L100.0100, L501.2450, L300.3900, L501.6901 ####[facility] [address] [place], [address] BUN/CRE 10.3 RATIO Normal 10-20 [facility] Comment on above: Performed By: #### L 500.4050, L300.4310, L503.5510, L100.0100, L501.2450, L300.3900, L501.6901 ####[facility] [address] [place], [address] Calcium [Mass/Vol] 8.9 mg/dL Normal 7.6-11.0 [facility] Comment on above: Performed By: #### L 500.4050, L300.4310, L503.5510, L100.0100, L501.2450, L300.3900, L501.6901 ####[facility] [address] [place], [address] Chloride [Moles/Vol] 100 mmol/L Normal 98-108 [facility] Comment on above: Performed By: #### L 500.4050, L300.4310, L503.5510, L100.0100, L501.2450, L300.3900, L501.6901 ####[facility] [address] [place], [address] CO2 [Moles/Vol] 20.4 mmol/L Low 21.0-32.0 [facility] Comment on above: Performed By: #### L 500.4050, L300.4310, L503.5510, L100.0100, L501.2450, L300.3900, L501.6901 ####[facility] [address] [place], [address] Creatinine [Mass/Vol] 2.42 mg/dL High 0.70-1.20 [facility] Comment on above: Performed By: #### L 500.4050, L300.4310, L503.5510, L100.0100, L501.2450, L300.3900, L501.6901 ####[facility] [address] [place], [address] ECRCL 37.17 ml/min Low 50-250 [facility] Comment on above: Performed By: #### L 500.4050, L300.4310, L503.5510, L100.0100, L501.2450, L300.3900, L501.6901 ####[facility] [address] [place], [address] GAP 14 Normal 5-15 [facility] Comment on above: Performed By: #### L 500.4050, L300.4310, L503.5510, L100.0100, L501.2450, L300.3900, L501.6901 ####[facility] [address] [place], [address] GFR/1.73 sq M.predicted among non-blacks MDRD (S/P/Bld) [Vol rate/Area] 30 mL/min/{1.73_m2} Low >60 [facility] Comment on above: Result Comment: mL/m in/1.73m2 CKD-EPI Creatinine Equation (2020) Performed By: #### L 500.4050, L300.4310, L503.5510, L100.0100, L501.2450, L300.3900, L501.6901 ####[facility] [address] [place], [address] Globulin (S) [Mass/Vol] 3.5 g/dL Normal 2.2-4.2 [facility] Comment on above: Performed By: #### L 500.4050, L300.4310, L503.5510, L100.0100, L501.2450, L300.3900, L501.6901 ####[facility] [address] [place], [address] Glucose [Mass/Vol] 386 mg/dL High 70-99 [facility] Comment on above: Performed By: #### L 500.4050, L300.4310, L503.5510, L100.0100, L501.2450, L300.3900, L501.6901 ####[facility] [address] [place], [address] Potassium [Moles/Vol] 3.5 mmol/L Normal 3.3-5.1 [facility] Comment on above: Result Comment: Hemo lysis present, Results??could be affected.?? Performed By: #### L 500.4050, L300.4310, L503.5510, L100.0100, L501.2450, L300.3900, L501.6901 ####[facility] [address] [place], [address] Sodium [Moles/Vol] 135 mmol/L Normal 133-145 [facility] Comment on above: Performed By: #### L 500.4050, L300.4310, L503.5510, L100.0100, L501.2450, L300.3900, L501.6901 ####[facility] [address] [place], [address] T PROT 6.3 g/dL Normal 5.9-8.4 [facility] Comment on above: Performed By: #### L 500.4050, L300.4310, L503.5510, L100.0100, L501.2450, L300.3900, L501.6901 ####[facility] [address] [place], [address] Urea nitrogen [Mass/Vol] 25 mg/dL High 4-19 [facility] Comment on above: Performed By: #### L 500.4050, L300.4310, L503.5510, L100.0100, L501.2450, L300.3900, L501.6901 ####[facility] [address] [place], [address] Emergency Department Summary on 12-26-2024 Emergency Department Summary Normal [facility] Eosinophil percentageOrdered By: Boone Carvajal on 12-26-2024 Eosinophils/100 WBC (Bld) 5.8 % High 0-5 [facility] Erythrocyte distribution wid th ratioOrdered By: Boone Carvajal on 12-26-2024 Erythrocyte distribution width (RBC) [Ratio] 16.3 % High 11.6-14.6 [facility] Erythrocyte distribution wid th standard deviationOrdered By: Boone Carvajal on 12-26-2024 Erythrocyte distribution width (RBC) [Ratio] 54.4 fl High 35.1-43.9 [facility] Glomerular filtration rate ( GFR) estimation/1.73 sq m using serum, plasma, or whole bOrdered By: Boone Carvajal on 12-26-2024 GFR/1.73 sq M.predicted among non-blacks MDRD (S/P/Bld) [Vol rate/Area] 30 mL/min/{1.73_m2} Low >60 [facility] Hematocrit Auto (Bld) [Volum e fraction]Ordered By: Boone Carvajal on 12-26-2024 Hematocrit (Bld) [Volume fraction] 29.6 % Low 40-54 [facility] Hemoglobin measurementOrdere d By: Boone Carvajal on 12-26-2024 Hemoglobin (Bld) [Mass/Vol] 9.6 g/dL Low 13.0-16.5 [facility] Immature granulocytes/100 WB C Auto (Bld)Ordered By: Boone Carvajal on 12-26-2024 Immature granulocytes/100 WBC (Bld) 0.500 % 0.0-0.9 [facility] Ketones Test strip Ql (U)Ord ered By: Boone Carvajal on 12-26-2024 Ketones Ql (U) 5 mg/dl High Negative [facility] Lipaseon 12-26-2024 Lipase [Catalytic activity/Vol] 62 U/L Normal 13-75 [facility] Comment on above: Result Comment: Siddhartha bhat note:LIPASE revised reference range effective 22.New Lipase methodology. Expected to produce lower valuesthan the previous assay method.NEW Reference Range: 13 - 75 U/L Performed By: #### L 500.4050, L300.4310, L503.5510, L100.0100, L501.2450, L300.3900, L501.6901 ####[facility] [address] [place], [address] MCV (mean corpuscular volume ) determinationOrdered By: Boone Carvajal on 12-26-2024 MCV (RBC) [Entitic vol] 90.8 fL 80-94 [facility] Mean corpuscular hemoglobin (MCH) determinationOrdered By: Boone Carvajal on 12-26-2024 MCH (RBC) [Entitic mass] 29.4 pg 27.0-32.0 [facility] Monocyte percentageOrdered B y: Boone Carvajal on 12-26-2024 Monocytes/100 WBC (Bld) 7.4 % 0-10 [facility] Mucus LM Ql (Urine sed)Order ed By: Boone Carvajal on 12-26-2024 Mucus Ql (Urine sed) 0 SEEN /hpf [facility] Neutrophil percentageOrdered By: Boone Carvajal on 12-26-2024 Neutrophils/100 WBC (Bld) 70.5 % High 47-70 [facility] Nitrite Test strip Ql (U)Ord ered By: Boone Carvajal on 12-26-2024 Nitrite Ql (U) Negative Negative [facility] No Panel InformationOrdered By: Boone Carvajal on 12-26-2024 58 U/L High <38 [facility] Partial Thromboplast Timeon 12-26-2024 aPTT Coag (Bld) [Time] 36.3 s High 24.1-36.2 [facility] Comment on above: Performed By: #### L 500.4050, L300.4310, L503.5510, L100.0100, L501.2450, L300.3900, L501.6901 ####[facility] [address] [place], [address] Platelet countOrdered By: Niko Carvajal on 12-26-2024 Platelets (Bld) [#/Vol] 139 10*3/uL Low 150-450 [facility] Potassium measurement (mass/ volume)Ordered By: Boone Carvajal on 12-26-2024 Potassium (Unsp spec) [Mass/Vol] 3.5 mmol/L 3.3-5.1 [facility] Protein Test strip Ql (U)Ord ered By: Boone Carvajal on 12-26-2024 Protein Ql (U) 500 mg/dl High Negative [facility] Prothrombin Time w/INRon INR Coag (PPP) [Relative time] 1.5 {INR} Normal [facility] Comment on above: Performed By: #### L 500.4050, L300.4310, L503.5510, L100.0100, L501.2450, L300.3900, L501.6901 ####[facility] [address] [place], [place], [address] PT Coag (PPP) [Time] 18.5 s High 11.7-14.9 [facility] Comment on above: Performed By: #### L 500.4050, L300.4310, L503.5510, L100.0100, L501.2450, L300.3900, L501.6901 ####[facility] [address] [place], [place], [id number] Prothrombin timeOrdered By: Boone Carvajal on 12-26-2024 PT Coag (PPP) [Time] 18.5 s High 11.7-14.9 [facility] RBC Auto (Bld) [#/Vol]Ordere d By: Boone Carvajal on 12-26-2024 RBC (Bld) [#/Vol] 3.26 10*6/uL Low 4.6-6.2 [facility] Serum creatinine measurement (mass/volume)Ordered By: Boone Carvajal on 12-26-2024 Creatinine [Mass/Vol] 2.42 mg/dL High 0.70-1.20 [facility] Serum globulin measurementOr dered By: Boone Carvajal on 12-26-2024 Globulin (S) [Mass/Vol] 3.5 g/dL 2.2-4.2 [facility] Serum glucose measurement (m ass/volume)Ordered By: Boone Carvajal on 12-26-2024 Glucose [Mass/Vol] 386 mg/dL High 70-99 [facility] Serum or plasma alanine thomas otransferase (ALT) measurementOrdered By: Boone Carvajal on 12-26-2024 ALT [Catalytic activity/Vol] 27 U/L <47 [facility] Serum or plasma albumin roosevelt urement (mass/volume)Ordered By: Boone Carvajal on 12-26-2024 Albumin [Mass/Vol] 2.8 g/dL Low 3.5-5.0 [facility] Serum or plasma albumin/glob ulin mass ratioOrdered By: Boone Carvajal on 12-26-2024 Albumin/Globulin [Mass ratio] 0.8 {ratio} Low 0.9-2.4 [facility] Serum or plasma alkaline kendrick sphatase measurementOrdered By: Boone Carvajal on 12-26-2024 ALP [Catalytic activity/Vol] 207 U/L High 40-129 [facility] Serum or plasma calcium roosevelt urement (mass/volume)Ordered By: Boone Carvajal on 12-26-2024 Calcium [Mass/Vol] 8.9 mg/dL 7.6-11.0 [facility] Serum or plasma urea nitroge n measurement (mass/volume)Ordered By: Boone Carvajal on 12-26-2024 Urea nitrogen [Mass/Vol] 25 mg/dL High 4-19 [facility] Sodium levelOrdered By: Boone Carvajal on 12-26-2024 Sodium [Moles/Vol] 135 mmol/L 133-145 [facility] Squamous epithelial cells de tection in urine sediment by light microscopyOrdered By: Boone Caravjal on 12-26-2024 Epithelial cells.squamous LM Ql (Urine sed) 0 SEEN /hpf 0-5 [facility] Total proteinOrdered By: Danita Carvajal on 12-26-2024 Protein [Mass/Vol] 6.3 g/dL 5.9-8.4 [facility] Urinalysis, Completeon 12-26 RBC 25-50 SEEN Normal 0-5 [facility] Comment on above: Order Comment: COLOR OF URINE MAY AFFECT DIPSTICK RESULTS.CLEAN CATCH Performed By: #### L 400.0001 ####[facility] [address] [place], [address] WBC 25-50 SEEN Normal 0-5 [facility] Comment on above: Order Comment: COLOR OF URINE MAY AFFECT DIPSTICK RESULTS.CLEAN CATCH Performed By: #### L 400.0001 ####[facility] [address] [place], [address] BACTERIA 0 SEEN Normal None Seen [facility] Comment on above: Order Comment: COLOR OF URINE MAY AFFECT DIPSTICK RESULTS.CLEAN CATCH Performed By: #### L 400.0001 ####[facility] [address] [place], [address] EPI,SQUAMOUS 0 SEEN Normal 0-5 [facility] Comment on above: Order Comment: COLOR OF URINE MAY AFFECT DIPSTICK RESULTS.CLEAN CATCH Performed By: #### L 400.0001 ####[facility] [address] [place], [address] Mucus Ql (Urine sed) 0 SEEN Normal [facility] Comment on above: Order Comment: COLOR OF URINE MAY AFFECT DIPSTICK RESULTS.CLEAN CATCH Performed By: #### L 400.0001 ####[facility] [address] 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 [facility] Urine glucose detectionOrder ed By: Boone Carvajal on 12-26-2024 Glucose Ql (U) Normal mg/dl Normal [facility] Urine leukocyte esterase det ection by dipstickOrdered By: Boone Carvajal on 12-26-2024 Leukocyte esterase Test strip Ql (U) 500 /ul High Negative [facility] Urine pHOrdered By: Boone romo on 12-26-2024 pH (U) 6.0 [pH] 5.0 - 8.0 [facility] Urine sediment bacteria coun t by microscopy (number/high power field)Ordered By: Boone Carvajal on 12-26-2024 Bacteria LM.HPF (Urine sed) [#/Area] 0 /[HPF] None Seen [facility] Urine specific gravity measu rementOrdered By: Boone Carvajal on 12-26-2024 Specific gravity (U) [Rel density] 1.015 1.002-1.030 [facility] Urine urobilinogen measureme ntOrdered By: Boone Carvajal on 12-26-2024 Urobilinogen Ql (U) Normal mg/dl Normal [facility] Venous blood ammonia measure mentOrdered By: Booneolamide Carvajal on 12-26-2024 Ammonia (P) [Moles/Vol] 114.0 umol/L High 16-60 [facility] White blood cell (WBC) count Ordered By: Boone Carvajal on 12-26-2024 WBC (Bld) [#/Vol] 11.0 10*3/uL 4.4-11.0 [facility] White blood cell countOrdere d By: Boone Carvajal on 12-26-2024 White blood cell count 25-50 SEEN /hpf 0-5 [facility] Abdomen Limitedon 12-15-2024 Abdomen Limited Normal [facility] L501.5101on 12-08-2024 GGTP 103 IU/L Abnormal 0-65 [facility] Comment on above: Result Comment: Perf ormed at: - [facility] [place] [id number] Director: Buck Ivy PhD, Phone: [phone] Performed By: #### L 967.3125, O201.8667, L566.9415, L1000105 ####[facility] [address] [place], [address] Absolute lymphocyte countOrd ered By: Josy Elias on 12-07-2024 Lymphocytes Auto (Unsp spec) [#/Vol] 1.71 10*3/uL 0.83-4.51 [facility] Anion gap in Serum or Plasma Ordered By: Josy Elias on 12-07-2024 Anion gap [Moles/Vol] 12 mmol/L 5-15 [facility] Automated lymphocyte count a s percentage of total leukocytesOrdered By: Josy Elias on 12-07-2024 Lymphocytes/100 WBC Auto (Unsp spec) 18.4 % Low 19-41 [facility] BUN/creatinine ratioOrdered By: Josy Elias on 12-07-2024 Urea nitrogen/Creatinine [Mass ratio] 10.0 mg/mg 10-20 [facility] Basophil percentageOrdered B y: Josy Elias on 12-07-2024 Basophils/100 WBC (Bld) 0.6 % 0-1 [facility] Bilirubin, totalOrdered By: Josy Elias on 12-07-2024 Bilirubin [Mass/Vol] 1.21 mg/dL 0.00-1.30 [facility] CBC W/Diff, Automatedon PATH REV N/A Normal [facility] Comment on above: Result Comment: PATH REVIEW DONE WITH IN THE PAST 30 DAYS AMENDED REPORT 12/07/24 1011 PATH REV previously reported as: December Performed By: #### L 100.0100, L500.4050 ####[facility] [address] [place], [address] Absolute Lymph 1.71 X10 3/uL Normal 0.83-4.51 [facility] Comment on above: Performed By: #### L 501.9985, L501.5101, L500.4050, L100.0100 ####[facility] [address] [place], [address] Absolute Neut 5.9 X10 3/uL Normal 2.0-7.7 [facility] Comment on above: Performed By: #### L 501.9985, L501.5101, L500.4050, L100.0100 ####[facility] [address] [place], [address] Basophils/100 WBC (Bld) 0.6 % Normal 0-1 [facility] Comment on above: Performed By: #### L 501.9985, L501.5101, L500.4050, L100.0100 ####[facility] [address] [place], [address] Eosinophils/100 WBC (Bld) 5.1 % High 0-5 [facility] Comment on above: Performed By: #### L 501.9985, L501.5101, L500.4050, L100.0100 ####[facility] [address] [place], [address] Erythrocyte distribution width (RBC) [Ratio] 16.9 % High 11.6-14.6 [facility] Comment on above: Performed By: #### L 501.9985, L501.5101, L500.4050, L100.0100 ####[facility] [address] [place], [address] Hematocrit (Bld) [Volume fraction] 26.2 % Low 40-54 [facility] Comment on above: Performed By: #### L 501.9985, L501.5101, L500.4050, L100.0100 ####[facility] [address] [place], [address] Hemoglobin (Bld) [Mass/Vol] 8.5 g/dL Low 13.0-16.5 [facility] Comment on above: Performed By: #### L 501.9985, L501.5101, L500.4050, L100.0100 ####[facility] [address] [place], [address] IG% 0.300 Normal 0.0-0.9 [facility] Comment on above: Result Comment: IG% - Immature Granulocytes (promyelocytes, myelocytes andmetamyelocytes) > 1% indicates that a LEFT SHIFT is Present. Performed By: #### L 501.9985, L501.5101, L500.4050, L100.0100 ####[facility] [address] [place], [address] Lymphocytes/100 WBC (Bld) 18.4 % Low 19-41 [facility] Comment on above: Performed By: #### L 501.9985, L501.5101, L500.4050, L100.0100 ####[facility] [address] [place], [address] MCH (RBC) [Entitic mass] 30.2 pg Normal 27.0-32.0 [facility] Comment on above: Performed By: #### L 501.9985, L501.5101, L500.4050, L100.0100 ####[facility] [address] [place], [address] MCHC (RBC) [Mass/Vol] 32.4 g/dL Normal 32-36 [facility] Comment on above: Performed By: #### L 501.9985, L501.5101, L500.4050, L100.0100 ####[facility] [address] [place], [address] MCV (RBC) [Entitic vol] 93.2 fL Normal 80-94 [facility] Comment on above: Performed By: #### L 501.9985, L501.5101, L500.4050, L100.0100 ####[facility] [address] [place], [address] Monocytes/100 WBC (Bld) 12.1 % High 0-10 [facility] Comment on above: Performed By: #### L 501.9985, L501.5101, L500.4050, L100.0100 ####[facility] [address] [place], [address] Neutrophils/100 WBC (Bld) 63.5 % Normal 47-70 [facility] Comment on above: Performed By: #### L 501.9985, L501.5101, L500.4050, L100.0100 ####[facility] [address] [place], [address] Nucleated RBC (Bld) [#/Vol] 0 10*3/uL Normal 0-5 [facility] Comment on above: Performed By: #### L 501.9985, L501.5101, L500.4050, L100.0100 ####[facility] [address] [place], [address] Platelet mean volume (Bld) [Entitic vol] 12.3 fL High 6.2-12.0 [facility] Comment on above: Performed By: #### L 501.9985, L501.5101, L500.4050, L100.0100 ####[facility] [address] [place], [address] Platelets (Bld) [#/Vol] 145 10*3/uL Low 150-450 [facility] Comment on above: Performed By: #### L 501.9985, L501.5101, L500.4050, L100.0100 ####[facility] [address] [place], [address] RBC (Bld) [#/Vol] 2.81 10*6/uL Low 4.6-6.2 [facility] Comment on above: Performed By: #### L 501.9985, L501.5101, L500.4050, L100.0100 ####[facility] [address] [place], [address] RDW SD 57.4 fl High 35.1-43.9 [facility] Comment on above: Performed By: #### L 501.9985, L501.5101, L500.4050, L100.0100 ####[facility] [address] [place], [address] WBC (Bld) [#/Vol] 9.3 10*3/uL Normal 4.4-11.0 [facility] Comment on above: Performed By: #### L 501.9985, L501.5101, L500.4050, L100.0100 ####[facility] [address] [place], [address] CNPTOUTREACHon 12-07-2024 CNPTOUTREACH Normal [facility] Carbon dioxide, total [Moles /volume] in Central venous bloodOrdered By: Josy Elias on 12-07-2024 CO2 [Moles/Vol] 20.0 mmol/L Low 21.0-32.0 [facility] Chloride assayOrdered By: Monica Elias on 12-07-2024 Chloride [Moles/Vol] 103 mmol/L 98-108 [facility] Comprehensive Metabolic Prof ilon 12-07-2024 Albumin [Mass/Vol] 2.6 g/dL Low 3.5-5.0 [facility] Comment on above: Performed By: #### L 501.9985, L501.5101, L500.4050, L100.0100 ####[facility] [address] [place], [address] Albumin/Globulin [Mass ratio] 0.9 {ratio} Normal 0.9-2.4 [facility] Comment on above: Performed By: #### L 501.9985, L501.5101, L500.4050, L100.0100 ####[facility] [address] [place], [address] ALK PHOS 241 U/L High 40-129 [facility] Comment on above: Performed By: #### L 501.9985, L501.5101, L500.4050, L100.0100 ####[facility] [address] [place], [address] ALT [Catalytic activity/Vol] 24 U/L Normal <=46 [facility] Comment on above: Performed By: #### L 501.9985, L501.5101, L500.4050, L100.0100 ####[facility] [address] [place], [address] AST [Catalytic activity/Vol] 37 U/L Normal <=37 [facility] Comment on above: Performed By: #### L 501.9985, L501.5101, L500.4050, L100.0100 ####[facility] [address] [place], [address] Bilirubin [Mass/Vol] 1.21 mg/dL Normal 0.00-1.30 [facility] Comment on above: Performed By: #### L 501.9985, L501.5101, L500.4050, L100.0100 ####[facility] [address] [place], [address] BUN/CRE 10.0 RATIO Normal 10-20 [facility] Comment on above: Performed By: #### L 501.9985, L501.5101, L500.4050, L100.0100 ####[facility] [address] [place], [address] Calcium [Mass/Vol] 8.2 mg/dL Normal 7.6-11.0 [facility] Comment on above: Performed By: #### L 501.9985, L501.5101, L500.4050, L100.0100 ####[facility] [address] [place], [address] Chloride [Moles/Vol] 103 mmol/L Normal 98-108 [facility] Comment on above: Performed By: #### L 501.9985, L501.5101, L500.4050, L100.0100 ####[facility] [address] [place], [address] CO2 [Moles/Vol] 20.0 mmol/L Low 21.0-32.0 [facility] Comment on above: Performed By: #### L 501.9985, L501.5101, L500.4050, L100.0100 ####[facility] [address] [place], [address] Creatinine [Mass/Vol] 1.78 mg/dL High 0.70-1.20 [facility] Comment on above: Performed By: #### L 501.9985, L501.5101, L500.4050, L100.0100 ####[facility] [address] [place], [address] GAP 12 Normal 5-15 [facility] Comment on above: Performed By: #### L 501.9985, L501.5101, L500.4050, L100.0100 ####[facility] [address] [place], [address] GFR/1.73 sq M.predicted among non-blacks MDRD (S/P/Bld) [Vol rate/Area] 44 mL/min/{1.73_m2} Low >60 [facility] Comment on above: Result Comment: mL/m in/1.73m2 CKD-EPI Creatinine Equation (2020) Performed By: #### L 501.9985, L501.5101, L500.4050, L100.0100 ####[facility] [address] [place], [address] Globulin (S) [Mass/Vol] 2.9 g/dL Normal 2.2-4.2 [facility] Comment on above: Performed By: #### L 501.9985, L501.5101, L500.4050, L100.0100 ####[facility] [address] [place], [address] Glucose [Mass/Vol] 185 mg/dL High 70-99 [facility] Comment on above: Performed By: #### L 501.9985, L501.5101, L500.4050, L100.0100 ####[facility] [address] [place], [address] Potassium [Moles/Vol] 3.3 mmol/L Normal 3.3-5.1 [facility] Comment on above: Performed By: #### L 501.9985, L501.5101, L500.4050, L100.0100 ####[facility] [address] [place], [address] Sodium [Moles/Vol] 136 mmol/L Normal 133-145 [facility] Comment on above: Performed By: #### L 501.9985, L501.5101, L500.4050, L100.0100 ####[facility] [address] [place], [address] T PROT 5.5 g/dL Low 5.9-8.4 [facility] Comment on above: Performed By: #### L 501.9985, L501.5101, L500.4050, L100.0100 ####[facility] [address] [place], [address] Urea nitrogen [Mass/Vol] 18 mg/dL Normal 4-19 [facility] Comment on above: Performed By: #### L 501.9985, L501.5101, L500.4050, L100.0100 ####[facility] [address] [place], [address] Eosinophil percentageOrdered By: Josy Elias on 12-07-2024 Eosinophils/100 WBC (Bld) 5.1 % High 0-5 [facility] Erythrocyte distribution wid th ratioOrdered By: Josy Elias on 12-07-2024 Erythrocyte distribution width (RBC) [Ratio] 16.9 % High 11.6-14.6 [facility] Erythrocyte distribution wid th standard deviationOrdered By: Josy Elias on 12-07-2024 Erythrocyte distribution width (RBC) [Ratio] 57.4 fl High 35.1-43.9 [facility] Gamma glutamyl transferase ( GGT) measurementOrdered By: Josy Elias on 12-07-2024 Amylase [Catalytic activity/Vol] 103 U/L High 0-65 [facility] Glomerular filtration rate ( GFR) estimation/1.73 sq m using serum, plasma, or whole bOrdered By: Josy Elias on 12-07-2024 GFR/1.73 sq M.predicted among non-blacks MDRD (S/P/Bld) [Vol rate/Area] 44 mL/min/{1.73_m2} Low >60 [facility] Hematocrit Auto (Bld) [Volum e fraction]Ordered By: Josy Elias on 12-07-2024 Hematocrit (Bld) [Volume fraction] 26.2 % Low 40-54 [facility] Hemoglobin A1con 12-07-2024 HbA1c (Bld) [Mass fraction] 7.2 % High <=5.6 [facility] Comment on above: Result Comment: Norm al < 5.7 % Prediabetic 5.7 - 6.4 % Diabetic >or= 6.5 % Please note range changes. Performed By: #### L 501.9985, L501.5101, L500.4050, L100.0100 ####[facility] [address] [place], [place], [id number] Hemoglobin A1c percentageOrd ered By: Josy Elias on 12-07-2024 HbA1c (Bld) [Mass fraction] 7.2 % High <5.7 [facility] Hemoglobin measurementOrdere d By: Josy Elias on 12-07-2024 Hemoglobin (Bld) [Mass/Vol] 8.5 g/dL Low 13.0-16.5 [facility] Immature granulocytes/100 WB C Auto (Bld)Ordered By: Josy Elias on 12-07-2024 Immature granulocytes/100 WBC (Bld) 0.300 % 0.0-0.9 [facility] MCV (mean corpuscular volume ) determinationOrdered By: Josy Elias on 12-07-2024 MCV (RBC) [Entitic vol] 93.2 fL 80-94 [facility] Mean corpuscular hemoglobin (MCH) determinationOrdered By: Josy Elias on 12-07-2024 MCH (RBC) [Entitic mass] 30.2 pg 27.0-32.0 [facility] Monocyte percentageOrdered B y: Josy Elias on 12-07-2024 Monocytes/100 WBC (Bld) 12.1 % High 0-10 [facility] Neutrophil percentageOrdered By: Josy Elias on 12-07-2024 Neutrophils/100 WBC (Bld) 63.5 % 47-70 [facility] No Panel InformationOrdered By: Josy Elias on 12-07-2024 37 U/L <38 [facility] Platelet countOrdered By: Monica Elias on 12-07-2024 Platelets (Bld) [#/Vol] 145 10*3/uL Low 150-450 [facility] Potassium measurement (mass/ volume)Ordered By: Josy Elias on 12-07-2024 Potassium (Unsp spec) [Mass/Vol] 3.3 mmol/L 3.3-5.1 [facility] RBC Auto (Bld) [#/Vol]Ordere d By: Josy Elias on 12-07-2024 RBC (Bld) [#/Vol] 2.81 10*6/uL Low 4.6-6.2 [facility] Serum creatinine measurement (mass/volume)Ordered By: Josy Elias on 12-07-2024 Creatinine [Mass/Vol] 1.78 mg/dL High 0.70-1.20 [facility] Serum globulin measurementOr dered By: Josy Elias on 12-07-2024 Globulin (S) [Mass/Vol] 2.9 g/dL 2.2-4.2 [facility] Serum glucose measurement (m ass/volume)Ordered By: Josy Elias on 12-07-2024 Glucose [Mass/Vol] 185 mg/dL High 70-99 [facility] Serum or plasma alanine thomas otransferase (ALT) measurementOrdered By: Josy Elias on 12-07-2024 ALT [Catalytic activity/Vol] 24 U/L <47 [facility] Serum or plasma albumin roosevelt urement (mass/volume)Ordered By: Josy Elias on 12-07-2024 Albumin [Mass/Vol] 2.6 g/dL Low 3.5-5.0 [facility] Serum or plasma albumin/glob ulin mass ratioOrdered By: Josy Elias on 12-07-2024 Albumin/Globulin [Mass ratio] 0.9 {ratio} 0.9-2.4 [facility] Serum or plasma alkaline kendrick sphatase measurementOrdered By: Josy Elias on 12-07-2024 ALP [Catalytic activity/Vol] 241 U/L High 40-129 [facility] Serum or plasma calcium roosevelt urement (mass/volume)Ordered By: Josy Elias on 12-07-2024 Calcium [Mass/Vol] 8.2 mg/dL 7.6-11.0 [facility] Serum or plasma urea nitroge n measurement (mass/volume)Ordered By: Josy Elias on 12-07-2024 Urea nitrogen [Mass/Vol] 18 mg/dL 4-19 [facility] Sodium levelOrdered By: Terrance Elias on 12-07-2024 Sodium [Moles/Vol] 136 mmol/L 133-145 [facility] Total proteinOrdered By: Chinedu Elias on 12-07-2024 Protein [Mass/Vol] 5.5 g/dL Low 5.9-8.4 [facility] White blood cell (WBC) count Ordered By: Josy Elias on 12-07-2024 WBC (Bld) [#/Vol] 9.3 10*3/uL 4.4-11.0 [facility] CBC W/Diff, Automatedon Absolute Neut Normal 2.0-7.7 [facility] Comment on above: Result Comment: Canc elled via OM: Order cancelled - Patient discharged Performed By: #### L 100.0100, L500.4050 ####[facility] [address] [place], [address] HCT Normal 40-54 [facility] Comment on above: Result Comment: Canc elled via OM: Order cancelled - Patient discharged Performed By: #### L 100.0100, L500.4050 ####[facility] [address] [place], [address] HGB Normal 13.0-16.5 [facility] Comment on above: Result Comment: Canc elled via OM: Order cancelled - Patient discharged Performed By: #### L 100.0100, L500.4050 ####[facility] [address] [place], [address] MCH Normal 27.0-32.0 [facility] Comment on above: Result Comment: Canc elled via OM: Order cancelled - Patient discharged Performed By: #### L 100.0100, L500.4050 ####[facility] [address] [place], [address] MCHC Normal 32-36 [facility] Comment on above: Result Comment: Canc elled via OM: Order cancelled - Patient discharged Performed By: #### L 100.0100, L500.4050 ####[facility] [address] [place], [address] MCV Normal 80-94 [facility] Comment on above: Result Comment: Canc elled via OM: Order cancelled - Patient discharged Performed By: #### L 100.0100, L500.4050 ####[facility] [address] [place], [address] NEUT% Normal 47-70 [facility] Comment on above: Result Comment: Canc elled via OM: Order cancelled - Patient discharged Performed By: #### L 100.0100, L500.4050 ####[facility] [address] [place], [address] PLT Normal 150-450 [facility] Comment on above: Result Comment: Canc elled via OM: Order cancelled - Patient discharged Performed By: #### L 100.0100, L500.4050 ####[facility] [address] [place], [address] RBC Normal 4.6-6.2 [facility] Comment on above: Result Comment: Canc elled via OM: Order cancelled - Patient discharged Performed By: #### L 100.0100, L500.4050 ####[facility] [address] [place], [address] RDW CV Normal 11.6-14.6 [facility] Comment on above: Result Comment: Canc elled via OM: Order cancelled - Patient discharged Performed By: #### L 100.0100, L500.4050 ####[facility] [address] [place], [address] RDW SD Normal 35.1-43.9 [facility] Comment on above: Result Comment: Canc elled via OM: Order cancelled - Patient discharged Performed By: #### L 100.0100, L500.4050 ####[facility] [address] [place], [address] WBC Normal 4.4-11.0 [facility] Comment on above: Result Comment: Canc elled via OM: Order cancelled - Patient discharged Performed By: #### L 100.0100, L500.4050 ####[facility] [address] [place], [address] Comprehensive Metabolic Prof ilon 12-06-2024 ALB Normal 3.5-5.0 [facility] Comment on above: Result Comment: Canc elled via OM: Order cancelled - Patient discharged Performed By: #### L 100.0100, L500.4050 ####[facility] [address] [place], [address] ALK PHOS Normal 40-129 [facility] Comment on above: Result Comment: Canc elled via OM: Order cancelled - Patient discharged Performed By: #### L 100.0100, L500.4050 ####[facility] [address] [place], [address] ALT Normal <=46 [facility] Comment on above: Result Comment: Canc elled via OM: Order cancelled - Patient discharged Performed By: #### L 100.0100, L500.4050 ####[facility] [address] [place], [address] AST Normal <=37 [facility] Comment on above: Result Comment: Canc elled via OM: Order cancelled - Patient discharged Performed By: #### L 100.0100, L500.4050 ####[facility] [address] [place], [address] BUN Normal 4-19 [facility] Comment on above: Result Comment: Canc elled via OM: Order cancelled - Patient discharged Performed By: #### L 100.0100, L500.4050 ####[facility] [address] [place], [address] BUN/CRE Normal 10-20 [facility] Comment on above: Result Comment: Canc elled via OM: Order cancelled - Patient discharged Performed By: #### L 100.0100, L500.4050 ####[facility] [address] [place], [address] Calcium Normal 7.6-11.0 [facility] Comment on above: Result Comment: Canc elled via OM: Order cancelled - Patient discharged Performed By: #### L 100.0100, L500.4050 ####[facility] [address] [place], [address] CL Normal 98-108 [facility] Comment on above: Result Comment: Canc elled via OM: Order cancelled - Patient discharged Performed By: #### L 100.0100, L500.4050 ####[facility] [address] [place], [address] CO2 Normal 21.0-32.0 [facility] Comment on above: Result Comment: Canc elled via OM: Order cancelled - Patient discharged Performed By: #### L 100.0100, L500.4050 ####[facility] [address] [place], [address] CREAT,SERUM Normal 0.70-1.20 [facility] Comment on above: Result Comment: Canc elled via OM: Order cancelled - Patient discharged Performed By: #### L 100.0100, L500.4050 ####[facility] [address] [place], [address] eGFR Normal >60 [facility] Comment on above: Result Comment: Canc elled via OM: Order cancelled - Patient discharged Performed By: #### L 100.0100, L500.4050 ####[facility] [address] [place], [address] GAP Normal 5-15 [facility] Comment on above: Result Comment: Canc elled via OM: Order cancelled - Patient discharged Performed By: #### L 100.0100, L500.4050 ####[facility] [address] [place], [address] GLU Normal 70-99 [facility] Comment on above: Result Comment: Canc elled via OM: Order cancelled - Patient discharged Performed By: #### L 100.0100, L500.4050 ####[facility] [address] [place], [address] Potassium Normal 3.3-5.1 [facility] Comment on above: Result Comment: Canc elled via OM: Order cancelled - Patient discharged Performed By: #### L 100.0100, L500.4050 ####[facility] [address] [place], [address] T BILI Normal 0.00-1.30 [facility] Comment on above: Result Comment: Canc elled via OM: Order cancelled - Patient discharged Performed By: #### L 100.0100, L500.4050 ####[facility] [address] [place], [address] T PROT Normal 5.9-8.4 [facility] Comment on above: Result Comment: Canc elled via OM: Order cancelled - Patient discharged Performed By: #### L 100.0100, L500.4050 ####[facility] [address] [place], [address] Comprehensive Metabolic Profil Normal 133-145 [facility] Comment on above: Result Comment: Canc elled via OM: Order cancelled - Patient discharged Performed By: #### L 100.0100, L500.4050 ####[facility] [address] [place], [address] CBC W/Diff, Automatedon 05-0 -2024 Absolute Neut Normal 2.0-7.7 [facility] Comment on above: Result Comment: Canc elled via OM: Order cancelled - Patient discharged Performed By: #### L 100.0100, L500.4050 ####[facility] [address] [place], [address] HCT Normal 40-54 [facility] Comment on above: Result Comment: Canc elled via OM: Order cancelled - Patient discharged Performed By: #### L 100.0100, L500.4050 ####[facility] [address] [place], [address] HGB Normal 13.0-16.5 [facility] Comment on above: Result Comment: Canc elled via OM: Order cancelled - Patient discharged Performed By: #### L 100.0100, L500.4050 ####[facility] [address] [place], [address] MCH Normal 27.0-32.0 [facility] Comment on above: Result Comment: Canc elled via OM: Order cancelled - Patient discharged Performed By: #### L 100.0100, L500.4050 ####[facility] [address] [place], [address] MCHC Normal 32-36 [facility] Comment on above: Result Comment: Canc elled via OM: Order cancelled - Patient discharged Performed By: #### L 100.0100, L500.4050 ####[facility] [address] [place], [address] MCV Normal 80-94 [facility] Comment on above: Result Comment: Canc elled via OM: Order cancelled - Patient discharged Performed By: #### L 100.0100, L500.4050 ####[facility] [address] [place], [address] NEUT% Normal 47-70 [facility] Comment on above: Result Comment: Canc elled via OM: Order cancelled - Patient discharged Performed By: #### L 100.0100, L500.4050 ####[facility] [address] [place], [address] PLT Normal 150-450 [facility] Comment on above: Result Comment: Canc elled via OM: Order cancelled - Patient discharged Performed By: #### L 100.0100, L500.4050 ####[facility] [address] [place], [address] RBC Normal 4.6-6.2 [facility] Comment on above: Result Comment: Canc elled via OM: Order cancelled - Patient discharged Performed By: #### L 100.0100, L500.4050 ####[facility] [address] [place], [address] RDW CV Normal 11.6-14.6 [facility] Comment on above: Result Comment: Canc elled via OM: Order cancelled - Patient discharged Performed By: #### L 100.0100, L500.4050 ####[facility] [address] [place], [address] RDW SD Normal 35.1-43.9 [facility] Comment on above: Result Comment: Canc elled via OM: Order cancelled - Patient discharged Performed By: #### L 100.0100, L500.4050 ####[facility] [address] [place], [address] WBC Normal 4.4-11.0 [facility] Comment on above: Result Comment: Canc elled via OM: Order cancelled - Patient discharged Performed By: #### L 100.0100, L500.4050 ####[facility] [address] [place], [address] Comprehensive Metabolic Prof mdon 12-05-2024 ALB Normal 3.5-5.0 [facility] Comment on above: Result Comment: Canc elled via OM: Order cancelled - Patient discharged Performed By: #### L 100.0100, L500.4050 ####[facility] [address] [place], [address] ALK PHOS Normal 40-129 [facility] Comment on above: Result Comment: Canc elled via OM: Order cancelled - Patient discharged Performed By: #### L 100.0100, L500.4050 ####[facility] [address] [place], [address] ALT Normal <=46 [facility] Comment on above: Result Comment: Canc elled via OM: Order cancelled - Patient discharged Performed By: #### L 100.0100, L500.4050 ####[facility] [address] [place], [address] AST Normal <=37 [facility] Comment on above: Result Comment: Canc elled via OM: Order cancelled - Patient discharged Performed By: #### L 100.0100, L500.4050 ####[facility] [address] [place], [address] BUN Normal 4-19 [facility] Comment on above: Result Comment: Canc elled via OM: Order cancelled - Patient discharged Performed By: #### L 100.0100, L500.4050 ####[facility] [address] [place], [address] BUN/CRE Normal 10-20 [facility] Comment on above: Result Comment: Canc elled via OM: Order cancelled - Patient discharged Performed By: #### L 100.0100, L500.4050 ####[facility] [address] [place], [address] Calcium Normal 7.6-11.0 [facility] Comment on above: Result Comment: Canc elled via OM: Order cancelled - Patient discharged Performed By: #### L 100.0100, L500.4050 ####[facility] [address] [place], [address] CL Normal 98-108 [facility] Comment on above: Result Comment: Canc elled via OM: Order cancelled - Patient discharged Performed By: #### L 100.0100, L500.4050 ####[facility] [address] [place], [address] CO2 Normal 21.0-32.0 [facility] Comment on above: Result Comment: Canc elled via OM: Order cancelled - Patient discharged Performed By: #### L 100.0100, L500.4050 ####[facility] [address] [place], [address] CREAT,SERUM Normal 0.70-1.20 [facility] Comment on above: Result Comment: Canc elled via OM: Order cancelled - Patient discharged Performed By: #### L 100.0100, L500.4050 ####[facility] [address] [place], [address] eGFR Normal >60 [facility] Comment on above: Result Comment: Canc elled via OM: Order cancelled - Patient discharged Performed By: #### L 100.0100, L500.4050 ####[facility] [address] [place], [address] GAP Normal 5-15 [facility] Comment on above: Result Comment: Canc elled via OM: Order cancelled - Patient discharged Performed By: #### L 100.0100, L500.4050 ####[facility] [address] [place], [address] GLU Normal 70-99 [facility] Comment on above: Result Comment: Canc elled via OM: Order cancelled - Patient discharged Performed By: #### L 100.0100, L500.4050 ####[facility] [address] [place], [address] Potassium Normal 3.3-5.1 [facility] Comment on above: Result Comment: Canc elled via OM: Order cancelled - Patient discharged Performed By: #### L 100.0100, L500.4050 ####[facility] [address] [place], [address] T BILI Normal 0.00-1.30 [facility] Comment on above: Result Comment: Canc elled via OM: Order cancelled - Patient discharged Performed By: #### L 100.0100, L500.4050 ####[facility] [address] [place], [address] T PROT Normal 5.9-8.4 [facility] Comment on above: Result Comment: Canc elled via OM: Order cancelled - Patient discharged Performed By: #### L 100.0100, L500.4050 ####[facility] [address] [place], [address] Comprehensive Metabolic Profil Normal 133-145 [facility] Comment on above: Result Comment: Canc elled via OM: Order cancelled - Patient discharged Performed By: #### L 100.0100, L500.4050 ####[facility] [address] [place], [address] CBC W/Diff, Automatedon 05-0 -2024 Absolute Neut Normal 2.0-7.7 [facility] Comment on above: Result Comment: Canc elled via OM: Order cancelled - Patient discharged Performed By: #### L 100.0100 ####[facility] [address] [place], [address] HCT Normal 40-54 [facility] Comment on above: Result Comment: Canc elled via OM: Order cancelled - Patient discharged Performed By: #### L 100.0100 ####[facility] [address] [place], [address] HGB Normal 13.0-16.5 [facility] Comment on above: Result Comment: Canc elled via OM: Order cancelled - Patient discharged Performed By: #### L 100.0100 ####[facility] [address] [place], [address] MCH Normal 27.0-32.0 [facility] Comment on above: Result Comment: Canc elled via OM: Order cancelled - Patient discharged Performed By: #### L 100.0100 ####[facility] [address] [place], [address] MCHC Normal 32-36 [facility] Comment on above: Result Comment: Canc elled via OM: Order cancelled - Patient discharged Performed By: #### L 100.0100 ####[facility] [address] [place], [address] MCV Normal 80-94 [facility] Comment on above: Result Comment: Canc elled via OM: Order cancelled - Patient discharged Performed By: #### L 100.0100 ####[facility] [address] [place], [address] NEUT% Normal 47-70 [facility] Comment on above: Result Comment: Canc elled via OM: Order cancelled - Patient discharged Performed By: #### L 100.0100 ####[facility] [address] [place], [address] PLT Normal 150-450 [facility] Comment on above: Result Comment: Canc elled via OM: Order cancelled - Patient discharged Performed By: #### L 100.0100 ####[facility] [address] [place], [address] RBC Normal 4.6-6.2 [facility] Comment on above: Result Comment: Canc elled via OM: Order cancelled - Patient discharged Performed By: #### L 100.0100 ####[facility] [address] [place], [address] RDW CV Normal 11.6-14.6 [facility] Comment on above: Result Comment: Canc elled via OM: Order cancelled - Patient discharged Performed By: #### L 100.0100 ####[facility] [address] [place], [address] RDW SD Normal 35.1-43.9 [facility] Comment on above: Result Comment: Canc elled via OM: Order cancelled - Patient discharged Performed By: #### L 100.0100 ####[facility] [address] [place], [address] WBC Normal 4.4-11.0 [facility] Comment on above: Result Comment: Canc elled via OM: Order cancelled - Patient discharged Performed By: #### L 100.0100 ####[facility] [address] [place], [address] CBC W/Diff, Automatedon 05-0 -2024 Absolute Neut Normal 2.0-7.7 [facility] Comment on above: Result Comment: Canc elled via OM: Order cancelled - Patient discharged Performed By: #### L 100.0100 ####[facility] [address] [place], [address] HCT Normal 40-54 [facility] Comment on above: Result Comment: Canc elled via OM: Order cancelled - Patient discharged Performed By: #### L 100.0100 ####[facility] [address] [place], [address] HGB Normal 13.0-16.5 [facility] Comment on above: Result Comment: Canc elled via OM: Order cancelled - Patient discharged Performed By: #### L 100.0100 ####[facility] [address] [place], [address] MCH Normal 27.0-32.0 [facility] Comment on above: Result Comment: Canc elled via OM: Order cancelled - Patient discharged Performed By: #### L 100.0100 ####[facility] [address] [place], [address] MCHC Normal 32-36 [facility] Comment on above: Result Comment: Canc elled via OM: Order cancelled - Patient discharged Performed By: #### L 100.0100 ####[facility] [address] [place], [address] MCV Normal 80-94 [facility] Comment on above: Result Comment: Canc elled via OM: Order cancelled - Patient discharged Performed By: #### L 100.0100 ####[facility] [address] [place], [address] NEUT% Normal 47-70 [facility] Comment on above: Result Comment: Canc elled via OM: Order cancelled - Patient discharged Performed By: #### L 100.0100 ####[facility] [address] [place], [address] PLT Normal 150-450 [facility] Comment on above: Result Comment: Canc elled via OM: Order cancelled - Patient discharged Performed By: #### L 100.0100 ####[facility] [address] [place], [address] RBC Normal 4.6-6.2 [facility] Comment on above: Result Comment: Canc elled via OM: Order cancelled - Patient discharged Performed By: #### L 100.0100 ####[facility] [address] [place], [address] RDW CV Normal 11.6-14.6 [facility] Comment on above: Result Comment: Canc elled via OM: Order cancelled - Patient discharged Performed By: #### L 100.0100 ####[facility] [address] [place], [address] RDW SD Normal 35.1-43.9 [facility] Comment on above: Result Comment: Canc elled via OM: Order cancelled - Patient discharged Performed By: #### L 100.0100 ####[facility] [address] [place], [address] WBC Normal 4.4-11.0 [facility] Comment on above: Result Comment: Canc elled via OM: Order cancelled - Patient discharged Performed By: #### L 100.0100 ####[facility] [address] [place], [address] Absolute lymphocyte countOrd ered By: Hill Acuña on 12-02-2024 Lymphocytes Auto (Unsp spec) [#/Vol] 0.92 10*3/uL 0.83-4.51 [facility] Anion gap in Serum or Plasma Ordered By: Hill Acuña on 12-02-2024 Anion gap [Moles/Vol] 7 mmol/L 5-15 [facility] Automated lymphocyte count a s percentage of total leukocytesOrdered By: Hill Acuña on 12-02-2024 Lymphocytes/100 WBC Auto (Unsp spec) 15.7 % Low 19-41 [facility] BUN/creatinine ratioOrdered By: Hill Acuña on 12-02-2024 Urea nitrogen/Creatinine [Mass ratio] 8.1 mg/mg Low 10-20 [facility] Basophil percentageOrdered B y: Hill Acuña on 12-02-2024 Basophils/100 WBC (Bld) 0.5 % 0-1 [facility] Bedside Glucoseon 12-02-2024 FINGERSTICK GLU 259 mg/dL High 74-106 [facility] Comment on above: Result Comment: BRISA GEMENT OF PATIENT CARE PER NURSING PROTOCOL Performed By: #### L 501.080 ####[facility] [address] [place], [address] FINGERSTICK GLU 243 mg/dL High 74-106 [facility] Comment on above: Result Comment: BRISA GEMENT OF PATIENT CARE PER NURSING PROTOCOL Performed By: #### L 501.080 ####[facility] [address] [place], [address] Bilirubin, totalOrdered By: Hill Acuña on 12-02-2024 Bilirubin [Mass/Vol] 1.07 mg/dL 0.00-1.30 [facility] CBC W/Diff, Automatedon Absolute Lymph 0.92 X10 3/uL Normal 0.83-4.51 [facility] Comment on above: Order Comment: VANCO Performed By: #### L 501.2300, L501.5200, L500.4050, L100.0100 ####[facility] [address] [place], [address] Absolute Neut 3.9 X10 3/uL Normal 2.0-7.7 [facility] Comment on above: Order Comment: VANCO Performed By: #### L 501.2300, L501.5200, L500.4050, L100.0100 ####[facility] [address] [place], [address] Basophils/100 WBC (Bld) 0.5 % Normal 0-1 [facility] Comment on above: Order Comment: VANCO Performed By: #### L 501.2300, L501.5200, L500.4050, L100.0100 ####[facility] [address] [place], [address] Eosinophils/100 WBC (Bld) 3.6 % Normal 0-5 [facility] Comment on above: Order Comment: VANCO Performed By: #### L 501.2300, L501.5200, L500.4050, L100.0100 ####[facility] [address] [place], [address] Erythrocyte distribution width (RBC) [Ratio] 16.2 % High 11.6-14.6 [facility] Comment on above: Order Comment: VANCO Performed By: #### L 501.2300, L501.5200, L500.4050, L100.0100 ####[facility] [address] [place], [address] Hematocrit (Bld) [Volume fraction] 21.9 % Low 40-54 [facility] Comment on above: Order Comment: VANCO Performed By: #### L 501.2300, L501.5200, L500.4050, L100.0100 ####[facility] [address] [place], [address] Hemoglobin (Bld) [Mass/Vol] 7.2 g/dL Low 13.0-16.5 [facility] Comment on above: Order Comment: VANCO Performed By: #### L 501.2300, L501.5200, L500.4050, L100.0100 ####[facility] [address] [place], [address] IG% 0.500 Normal 0.0-0.9 [facility] Comment on above: Order Comment: VANCO Result Comment: IG% - Immature Granulocytes (promyelocytes, myelocytes andmetamyelocytes) > 1% indicates that a LEFT SHIFT is Present. Performed By: #### L 501.2300, L501.5200, L500.4050, L100.0100 ####[facility] [address] [place], [address] Lymphocytes/100 WBC (Bld) 15.7 % Low 19-41 [facility] Comment on above: Order Comment: VANCO Performed By: #### L 501.2300, L501.5200, L500.4050, L100.0100 ####[facility] [address] [place], [address] MCH (RBC) [Entitic mass] 29.5 pg Normal 27.0-32.0 [facility] Comment on above: Order Comment: VANCO Performed By: #### L 501.2300, L501.5200, L500.4050, L100.0100 ####[facility] [address] [place], [address] MCHC (RBC) [Mass/Vol] 32.9 g/dL Normal 32-36 [facility] Comment on above: Order Comment: VANCO Performed By: #### L 501.2300, L501.5200, L500.4050, L100.0100 ####[facility] [address] [place], [address] MCV (RBC) [Entitic vol] 89.8 fL Normal 80-94 [facility] Comment on above: Order Comment: VANCO Performed By: #### L 501.2300, L501.5200, L500.4050, L100.0100 ####[facility] [address] [place], [address] Monocytes/100 WBC (Bld) 13.3 % High 0-10 [facility] Comment on above: Order Comment: VANCO Performed By: #### L 501.2300, L501.5200, L500.4050, L100.0100 ####[facility] [address] [place], [address] Neutrophils/100 WBC (Bld) 66.4 % Normal 47-70 [facility] Comment on above: Order Comment: VANCO Performed By: #### L 501.2300, L501.5200, L500.4050, L100.0100 ####[facility] [address] [place], [address] Nucleated RBC (Bld) [#/Vol] 0 10*3/uL Normal 0-5 [facility] Comment on above: Order Comment: VANCO Performed By: #### L 501.2300, L501.5200, L500.4050, L100.0100 ####[facility] [address] [place], [address] Platelet mean volume (Bld) [Entitic vol] 12.9 fL High 6.2-12.0 [facility] Comment on above: Order Comment: VANCO Performed By: #### L 501.2300, L501.5200, L500.4050, L100.0100 ####[facility] [address] [place], [address] Platelets (Bld) [#/Vol] 100 10*3/uL Low 150-450 [facility] Comment on above: Order Comment: VANCO Performed By: #### L 501.2300, L501.5200, L500.4050, L100.0100 ####[facility] [address] [place], [address] RBC (Bld) [#/Vol] 2.44 10*6/uL Low 4.6-6.2 [facility] Comment on above: Order Comment: VANCO Performed By: #### L 501.2300, L501.5200, L500.4050, L100.0100 ####[facility] [address] [place], [address] RDW SD 53.0 fl High 35.1-43.9 [facility] Comment on above: Order Comment: VANCO Performed By: #### L 501.2300, L501.5200, L500.4050, L100.0100 ####[facility] [address] [place], [address] WBC (Bld) [#/Vol] 5.9 10*3/uL Normal 4.4-11.0 [facility] Comment on above: Order Comment: VANCO Performed By: #### L 501.2300, L501.5200, L500.4050, L100.0100 ####[facility] [address] [place], [address] Carbon dioxide, total [Moles /volume] in Central venous bloodOrdered By: Hill Acuña on 12-02-2024 CO2 [Moles/Vol] 21.0 mmol/L 21.0-32.0 [facility] Chloride assayOrdered By: Kvng Acuña on 12-02-2024 Chloride [Moles/Vol] 104 mmol/L 98-108 [facility] Comprehensive Metabolic Prof ilon 12-02-2024 ALK PHOS 219 U/L High 40-129 [facility] Comment on above: Order Comment: VANCO Performed By: #### L 501.2300, L501.5200, L500.4050, L100.0100 ####[facility] [address] [place], [address] Eosinophil percentageOrdered By: Hill Acuña on 12-02-2024 Eosinophils/100 WBC (Bld) 3.6 % 0-5 [facility] Erythrocyte distribution wid th ratioOrdered By: Hill Acuña on 12-02-2024 Erythrocyte distribution width (RBC) [Ratio] 16.2 % High 11.6-14.6 [facility] Erythrocyte distribution wid th standard deviationOrdered By: Hill Acuña on 12-02-2024 Erythrocyte distribution width (RBC) [Ratio] 53.0 fl High 35.1-43.9 [facility] Glomerular filtration rate ( GFR) estimation/1.73 sq m using serum, plasma, or whole bOrdered By: Hill Acuña on 12-02-2024 GFR/1.73 sq M.predicted among non-blacks MDRD (S/P/Bld) [Vol rate/Area] 98 mL/min/{1.73_m2} >60 [facility] Gl[facility] deOrdered By: Hill Acuña on 12-02-2024 Glucose [Mass/Vol] 259 mg/dL High 74-106 [facility] Hematocrit Auto (Bld) [Volum e fraction]Ordered By: Hill Acuña on 12-02-2024 Hematocrit (Bld) [Volume fraction] 21.9 % Low 40-54 [facility] Hemoglobin measurementOrdere d By: Hill Acuña on 12-02-2024 Hemoglobin (Bld) [Mass/Vol] 7.2 g/dL Low 13.0-16.5 [facility] Immature granulocytes/100 WB C Auto (Bld)Ordered By: Hill Acuña on 12-02-2024 Immature granulocytes/100 WBC (Bld) 0.500 % 0.0-0.9 [facility] MCV (mean corpuscular volume ) determinationOrdered By: Hill Acuña on 12-02-2024 MCV (RBC) [Entitic vol] 89.8 fL 80-94 [facility] Magnesiumon 12-02-2024 Magnesium [Mass/Vol] 1.6 mg/dL Normal 1.5-2.2 [facility] Comment on above: Order Comment: VANCO Performed By: #### L 501.2300, L501.5200, L500.4050, L100.0100 ####[facility] [address] [place], [place], [id number] Magnesium measurement (mass/ volume)Ordered By: Hill Acuña on 12-02-2024 Magnesium (Unsp spec) [Mass/Vol] 1.6 mg/dL 1.5-2.2 [facility] Mean corpuscular hemoglobin (MCH) determinationOrdered By: Hill Acuña on 12-02-2024 MCH (RBC) [Entitic mass] 29.5 pg 27.0-32.0 [facility] Monocyte percentageOrdered B y: Hill Acuña on 12-02-2024 Monocytes/100 WBC (Bld) 13.3 % High 0-10 [facility] Neutrophil percentageOrdered By: Hill Acuña on 12-02-2024 Neutrophils/100 WBC (Bld) 66.4 % 47-70 [facility] No Panel InformationOrdered By: Hill Acuña on 12-02-2024 58 U/L High <38 [facility] Phosphoruson 12-02-2024 Phosphate [Mass/Vol] 2.3 mg/dL Low 2.7-4.5 [facility] Comment on above: Order Comment: VANCO Performed By: #### L 501.2300, L501.5200, L500.4050, L100.0100 ####[facility] [address] [place], [place], [id number] Platelet countOrdered By: Kvng Acuña on 12-02-2024 Platelets (Bld) [#/Vol] 100 10*3/uL Low 150-450 [facility] Potassium measurement (mass/ volume)Ordered By: Hill Acuña on 12-02-2024 Potassium (Unsp spec) [Mass/Vol] 3.8 mmol/L 3.3-5.1 [facility] RBC Auto (Bld) [#/Vol]Ordere d By: Hill Acñua on 12-02-2024 RBC (Bld) [#/Vol] 2.44 10*6/uL Low 4.6-6.2 [facility] Serum creatinine measurement (mass/volume)Ordered By: Hill Acuña on 12-02-2024 Creatinine [Mass/Vol] 0.90 mg/dL 0.70-1.20 [facility] Serum globulin measurementOr dered By: Hill Acuña on 12-02-2024 Globulin (S) [Mass/Vol] 2.6 g/dL 2.2-4.2 [facility] Serum glucose measurement (m ass/volume)Ordered By: Hill Acuña on 12-02-2024 Glucose [Mass/Vol] 221 mg/dL High 70-99 [facility] Serum or plasma alanine thomas otransferase (ALT) measurementOrdered By: Hill Acuña on 12-02-2024 ALT [Catalytic activity/Vol] 33 U/L <47 [facility] Serum or plasma albumin roosevelt urement (mass/volume)Ordered By: Hill Acuña on 12-02-2024 Albumin [Mass/Vol] 2.5 g/dL Low 3.5-5.0 [facility] Serum or plasma albumin/glob ulin mass ratioOrdered By: Hill Acuña on 12-02-2024 Albumin/Globulin [Mass ratio] 1.0 {ratio} 0.9-2.4 [facility] Serum or plasma alkaline kendrick sphatase measurementOrdered By: Hill Acuña on 12-02-2024 ALP [Catalytic activity/Vol] 219 U/L High 40-129 [facility] Serum or plasma calcium roosevelt urement (mass/volume)Ordered By: Hill Acuña on 12-02-2024 Calcium [Mass/Vol] 7.8 mg/dL 7.6-11.0 [facility] Serum or plasma urea nitroge n measurement (mass/volume)Ordered By: Hill Acuña on 12-02-2024 Urea nitrogen [Mass/Vol] 7 mg/dL 4-19 [facility] Sodium levelOrdered By: Paulino Acuña on 12-02-2024 Sodium [Moles/Vol] 132 mmol/L Low 133-145 [facility] Total proteinOrdered By: Hugo Acuña on 12-02-2024 Protein [Mass/Vol] 5.1 g/dL Low 5.9-8.4 [facility] Trough vancomycin levelOrder ed By: Maria Guadalupe Shore on 12-02-2024 Vancomycin trough [Mass/Vol] 19.6 ug/mL High 5.0-15.0 [facility] Vancomycin, Trough Levelon 0 12-02-2024 VANCO, TROUGH 19.6 ug/mL High 5.0-15.0 [facility] Comment on above: Order Comment: Comme nts: Trough to be drawn 30 mins prior to scheduled [id number] Result Comment: Eleazar mmended goal trough ranges are generally 10-15 mcg/mlfor less severe/complicated infections such as cellulitisor UTI and 15-20 mcg/ml for more severe/complicatedinfections such as bacteremia/sepsis, osteomyelitis,pneumonia or meningitis. Goal trough ranges should takeinto account indication, patient-specific factors andorganism AUDIE.VANCOMYCIN STANDARED DRUG THERAPY TROUGH LEVEL: 5.0 - 15.0 mg/LVANCOMYCIN HIGH INTENSITY THERAPY TROUGH LEVEL: 15.0 - 20.0 mg/LHigh Intensity therapy recommended for serious lifethreatening infections include:- Hnukowkeic-Wyyqhheeocuw-Drkjjfxxd (Ventilator/Healtcare Associated)-SepsisPLEASE CONTACT PHARMACY SERVICES (#9815) FOR INTERPRETATIONOF RESULTS. Performed By: #### L 501.8820 ####[facility] [address] [facility] [address] White blood cell (WBC) count Ordered By: Hill Acuña on 12-02-2024 WBC (Bld) [#/Vol] 5.9 10*3/uL 4.4-11.0 [facility] Bedside Glucoseon 12-01-2024 FINGERSTICK GLU 249 mg/dL High 74-106 [facility] Comment on above: Result Comment: BRISA GEMENT OF PATIENT CARE PER NURSING PROTOCOL Performed By: #### L 501.080 ####[facility] [address] [facility] [address] FINGERSTICK GLU 297 mg/dL High -106 [facility] Comment on above: Result Comment: BRISA GEMENT OF PATIENT CARE PER NURSING PROTOCOL Performed By: #### L 501.080 ####[facility] [address] [place], [address] FINGERSTICK GLU 232 mg/dL High 74-106 [facility] Comment on above: Result Comment: BRISA GEMENT OF PATIENT CARE PER NURSING PROTOCOL Performed By: #### L 501.080 ####[facility] [address] [place], [address] FINGERSTICK GLU 229 mg/dL High 74-106 [facility] Comment on above: Result Comment: BRISA MOROCHO OF PATIENT CARE PER NURSING PROTOCOL Performed By: #### L 501.080 ####[facility] [address] [place], [address] CBC W/Diff, Automatedon 04-3 0-2024 Absolute Lymph 1.09 X10 3/uL Normal 0.83-4.51 [facility] Comment on above: Performed By: #### L 501.5200, L501.2300, L100.0100, L500.4050 ####[facility] [address] [place], [address] Absolute Neut 4.2 X10 3/uL Normal 2.0-7.7 [facility] Comment on above: Performed By: #### L 501.5200, L501.2300, L100.0100, L500.4050 ####[facility] [address] [place], [address] Basophils/100 WBC (Bld) 0.3 % Normal 0-1 [facility] Comment on above: Performed By: #### L 501.5200, L501.2300, L100.0100, L500.4050 ####[facility] [address] [place], [address] Eosinophils/100 WBC (Bld) 3.8 % Normal 0-5 [facility] Comment on above: Performed By: #### L 501.5200, L501.2300, L100.0100, L500.4050 ####[facility] [address] [place], [place], [address] Erythrocyte distribution width (RBC) [Ratio] 16.3 % High 11.6-14.6 [facility] Comment on above: Performed By: #### L 501.5200, L501.2300, L100.0100, L500.4050 ####[facility] [address] [place], [address] Hematocrit (Bld) [Volume fraction] 21.9 % Low 40-54 [facility] Comment on above: Performed By: #### L 501.5200, L501.2300, L100.0100, L500.4050 ####[facility] [address] [place], [address] Hemoglobin (Bld) [Mass/Vol] 7.2 g/dL Low 13.0-16.5 [facility] Comment on above: Performed By: #### L 501.5200, L501.2300, L100.0100, L500.4050 ####[facility] [address] [place], [address] IG% 0.500 Normal 0.0-0.9 [facility] Comment on above: Result Comment: IG% - Immature Granulocytes (promyelocytes, myelocytes andmetamyelocytes) > 1% indicates that a LEFT SHIFT is Present. Performed By: #### L 501.5200, L501.2300, L100.0100, L500.4050 ####[facility] [address] [place], [address] Lymphocytes/100 WBC (Bld) 16.6 % Low 19-41 [facility] Comment on above: Performed By: #### L 501.5200, L501.2300, L100.0100, L500.4050 ####[facility] [address] [place], [address] MCH (RBC) [Entitic mass] 30.1 pg Normal 27.0-32.0 [facility] Comment on above: Performed By: #### L 501.5200, L501.2300, L100.0100, L500.4050 ####[facility] [address] [place], [address] MCHC (RBC) [Mass/Vol] 32.9 g/dL Normal 32-36 [facility] Comment on above: Performed By: #### L 501.5200, L501.2300, L100.0100, L500.4050 ####[facility] [address] [place], [address] MCV (RBC) [Entitic vol] 91.6 fL Normal 80-94 [facility] Comment on above: Performed By: #### L 501.5200, L501.2300, L100.0100, L500.4050 ####[facility] [address] [place], [address] Monocytes/100 WBC (Bld) 14.7 % High 0-10 [facility] Comment on above: Performed By: #### L 501.5200, L501.2300, L100.0100, L500.4050 ####[facility] [address] [place], [address] Neutrophils/100 WBC (Bld) 64.1 % Normal 47-70 [facility] Comment on above: Performed By: #### L 501.5200, L501.2300, L100.0100, L500.4050 ####[facility] [address] [place], [address] Nucleated RBC (Bld) [#/Vol] 0 10*3/uL Normal 0-5 [facility] Comment on above: Performed By: #### L 501.5200, L501.2300, L100.0100, L500.4050 ####[facility] [address] [place], [address] Platelet mean volume (Bld) [Entitic vol] 12.3 fL High 6.2-12.0 [facility] Comment on above: Performed By: #### L 501.5200, L501.2300, L100.0100, L500.4050 ####[facility] [address] [place], [address] Platelets (Bld) [#/Vol] 88 10*3/uL Low 150-450 [facility] Comment on above: Performed By: #### L 501.5200, L501.2300, L100.0100, L500.4050 ####[facility] [address] [place], [address] RBC (Bld) [#/Vol] 2.39 10*6/uL Low 4.6-6.2 [facility] Comment on above: Performed By: #### L 501.5200, L501.2300, L100.0100, L500.4050 ####[facility] [address] [place], [address] RDW SD 54.1 fl High 35.1-43.9 [facility] Comment on above: Performed By: #### L 501.5200, L501.2300, L100.0100, L500.4050 ####[facility] [address] [place], [address] WBC (Bld) [#/Vol] 6.6 10*3/uL Normal 4.4-11.0 [facility] Comment on above: Performed By: #### L 501.5200, L501.2300, L100.0100, L500.4050 ####[facility] [address] [place], [address] Comprehensive Metabolic Prof ilon 12-01-2024 Albumin [Mass/Vol] 2.5 g/dL Low 3.5-5.0 [facility] Comment on above: Performed By: #### L 501.5200, L501.2300, L100.0100, L500.4050 ####[facility] [address] [place], [address] Albumin/Globulin [Mass ratio] 1.0 {ratio} Normal 0.9-2.4 [facility] Comment on above: Performed By: #### L 501.5200, L501.2300, L100.0100, L500.4050 ####[facility] [address] [place], [address] ALK PHOS 210 U/L High 40-129 [facility] Comment on above: Performed By: #### L 501.5200, L501.2300, L100.0100, L500.4050 ####[facility] [address] [place], [address] ALT [Catalytic activity/Vol] 36 U/L Normal <=46 [facility] Comment on above: Performed By: #### L 501.5200, L501.2300, L100.0100, L500.4050 ####[facility] [address] [place], [address] AST [Catalytic activity/Vol] 72 U/L High <=37 [facility] Comment on above: Performed By: #### L 501.5200, L501.2300, L100.0100, L500.4050 ####[facility] [address] [place], [address] Bilirubin [Mass/Vol] 0.95 mg/dL Normal 0.00-1.30 [facility] Comment on above: Performed By: #### L 501.5200, L501.2300, L100.0100, L500.4050 ####[facility] [address] [place], [address] BUN/CRE 7.9 RATIO Low 10-20 [facility] Comment on above: Performed By: #### L 501.5200, L501.2300, L100.0100, L500.4050 ####[facility] [address] [place], [address] Calcium [Mass/Vol] 7.6 mg/dL Normal 7.6-11.0 [facility] Comment on above: Performed By: #### L 501.5200, L501.2300, L100.0100, L500.4050 ####[facility] [address] [place], [address] Chloride [Moles/Vol] 106 mmol/L Normal 98-108 [facility] Comment on above: Performed By: #### L 501.5200, L501.2300, L100.0100, L500.4050 ####[facility] [address] [place], [address] CO2 [Moles/Vol] 19.3 mmol/L Low 21.0-32.0 [facility] Comment on above: Performed By: #### L 501.5200, L501.2300, L100.0100, L500.4050 ####[facility] [address] [place], [address] Creatinine [Mass/Vol] 0.89 mg/dL Normal 0.70-1.20 [facility] Comment on above: Performed By: #### L 501.5200, L501.2300, L100.0100, L500.4050 ####[facility] [address] [place], [address] ECRCL 106.24 ml/min Normal 50-250 [facility] Comment on above: Performed By: #### L 501.5200, L501.2300, L100.0100, L500.4050 ####[facility] [address] [place], [address] GAP 8 Normal 5-15 [facility] Comment on above: Performed By: #### L 501.5200, L501.2300, L100.0100, L500.4050 ####[facility] [address] [place], [address] GFR/1.73 sq M.predicted among non-blacks MDRD (S/P/Bld) [Vol rate/Area] 99 mL/min/{1.73_m2} Normal >60 [facility] Comment on above: Result Comment: mL/m in/1.73m2 CKD-EPI Creatinine Equation (2020) Performed By: #### L 501.5200, L501.2300, L100.0100, L500.4050 ####[facility] [address] [place], [address] Globulin (S) [Mass/Vol] 2.4 g/dL Normal 2.2-4.2 [facility] Comment on above: Performed By: #### L 501.5200, L501.2300, L100.0100, L500.4050 ####[facility] [address] [place], [address] Glucose [Mass/Vol] 245 mg/dL High 70-99 [facility] Comment on above: Performed By: #### L 501.5200, L501.2300, L100.0100, L500.4050 ####[facility] [address] [place], [address] Potassium [Moles/Vol] 3.6 mmol/L Normal 3.3-5.1 [facility] Comment on above: Performed By: #### L 501.5200, L501.2300, L100.0100, L500.4050 ####[facility] [address] [place], [address] Sodium [Moles/Vol] 133 mmol/L Normal 133-145 [facility] Comment on above: Performed By: #### L 501.5200, L501.2300, L100.0100, L500.4050 ####[facility] [address] [place], [address] T PROT 4.9 g/dL Low 5.9-8.4 [facility] Comment on above: Performed By: #### L 501.5200, L501.2300, L100.0100, L500.4050 ####[facility] [address] [place], [address] Urea nitrogen [Mass/Vol] 7 mg/dL Normal 4-19 [facility] Comment on above: Performed By: #### L 501.5200, L501.2300, L100.0100, L500.4050 ####[facility] [address] [place], [address] Consultation - Infectious Dx on 12-01-2024 Consultation - Infectious Dx Normal [facility] Magnesiumon 12-01-2024 Magnesium [Mass/Vol] 1.8 mg/dL Normal 1.5-2.2 [facility] Comment on above: Performed By: #### L 501.5200, L501.2300, L100.0100, L500.4050 ####[facility] [address] [place], [address] Phosphoruson 12-01-2024 Phosphate [Mass/Vol] 1.8 mg/dL Low 2.7-4.5 [facility] Comment on above: Performed By: #### L 501.5200, L501.2300, L100.0100, L500.4050 ####[facility] [address] [place], [address] Urine Cultureon 12-01-2024 URC Normal [facility] Comment on above: Performed By: #### M 100.2200 ####[facility] [address] [place], [address] Bedside Glucoseon 11-30-2024 FINGERSTICK GLU 258 mg/dL High 74-106 [facility] Comment on above: Result Comment: BRISA GEMENT OF PATIENT CARE PER NURSING PROTOCOL Performed By: #### L 501.080 ####[facility] [address] [place], [address] FINGERSTICK GLU 261 mg/dL High [address] [place] [address] Comment on above: Result Comment: BRISA GEMENT OF PATIENT CARE PER NURSING PROTOCOL Performed By: #### L 501.080 ####[facility] [address] [place], [address] FINGERSTICK GLU 219 mg/dL High -106 [facility] Comment on above: Result Comment: BRISA GEMENT OF PATIENT CARE PER NURSING PROTOCOL Performed By: #### L 501.080 ####[facility] [address] [place], [address] FINGERSTICK GLU 185 mg/dL High [address] [place] [address] Comment on above: Result Comment: BRISA GEMENT OF PATIENT CARE PER NURSING PROTOCOL Performed By: #### L 501.080 ####[facility] [address] [place], [address] CBC W/Diff, Automatedon - PLT EST MOD DEC Normal ADEQ [facility] Comment on above: Performed By: #### L 501.5200, L501.2300, L100.0100, L500.4050 ####[facility] [address] [place], [address] Comprehensive Metabolic Prof ilon 11-30-2024 Albumin [Mass/Vol] 2.5 g/dL Low 3.5-5.0 [facility] Comment on above: Performed By: #### L 501.5200, L501.2300, L100.0100, L500.4050 ####[facility] [address] [place], [address] Albumin/Globulin [Mass ratio] 1.0 {ratio} Normal 0.9-2.4 [facility] Comment on above: Performed By: #### L 501.5200, L501.2300, L100.0100, L500.4050 ####[facility] [address] [place], [address] ALK PHOS 194 U/L High 40-129 [facility] Comment on above: Performed By: #### L 501.5200, L501.2300, L100.0100, L500.4050 ####[facility] [address] [place], [address] ALT [Catalytic activity/Vol] 37 U/L Normal <=46 [facility] Comment on above: Performed By: #### L 501.5200, L501.2300, L100.0100, L500.4050 ####[facility] [address] [place], [address] AST [Catalytic activity/Vol] 75 U/L High <=37 [facility] Comment on above: Performed By: #### L 501.5200, L501.2300, L100.0100, L500.4050 ####[facility] [address] [place], [address] Bilirubin [Mass/Vol] 0.89 mg/dL Normal 0.00-1.30 [facility] Comment on above: Performed By: #### L 501.5200, L501.2300, L100.0100, L500.4050 ####[facility] [address] [place], [address] BUN/CRE 10.5 RATIO Normal 10-20 [facility] Comment on above: Performed By: #### L 501.5200, L501.2300, L100.0100, L500.4050 ####[facility] [address] [place], [address] Calcium [Mass/Vol] 7.6 mg/dL Normal 7.6-11.0 [facility] Comment on above: Performed By: #### L 501.5200, L501.2300, L100.0100, L500.4050 ####[facility] [address] [place], [address] Chloride [Moles/Vol] 106 mmol/L Normal 98-108 [facility] Comment on above: Performed By: #### L 501.5200, L501.2300, L100.0100, L500.4050 ####[facility] [address] [place], [address] CO2 [Moles/Vol] 17.5 mmol/L Low 21.0-32.0 [facility] Comment on above: Performed By: #### L 501.5200, L501.2300, L100.0100, L500.4050 ####[facility] [address] [place], [address] Creatinine [Mass/Vol] 0.91 mg/dL Normal 0.70-1.20 [facility] Comment on above: Performed By: #### L 501.5200, L501.2300, L100.0100, L500.4050 ####[facility] [address] [place], [address] ECRCL 103.85 ml/min Normal 50-250 [facility] Comment on above: Performed By: #### L 501.5200, L501.2300, L100.0100, L500.4050 ####[facility] [address] [place], [address] GAP 8 Normal 5-15 [facility] Comment on above: Performed By: #### L 501.5200, L501.2300, L100.0100, L500.4050 ####[facility] [address] [place], [address] GFR/1.73 sq M.predicted among non-blacks MDRD (S/P/Bld) [Vol rate/Area] 98 mL/min/{1.73_m2} Normal >60 [facility] Comment on above: Result Comment: mL/m in/1.73m2 CKD-EPI Creatinine Equation (2020) Performed By: #### L 501.5200, L501.2300, L100.0100, L500.4050 ####[facility] [address] [place], [address] Globulin (S) [Mass/Vol] 2.4 g/dL Normal 2.2-4.2 [facility] Comment on above: Performed By: #### L 501.5200, L501.2300, L100.0100, L500.4050 ####[facility] [address] [place], [address] Glucose [Mass/Vol] 167 mg/dL High 70-99 [facility] Comment on above: Performed By: #### L 501.5200, L501.2300, L100.0100, L500.4050 ####[facility] [address] [place], [address] Potassium [Moles/Vol] 3.3 mmol/L Normal 3.3-5.1 [facility] Comment on above: Performed By: #### L 501.5200, L501.2300, L100.0100, L500.4050 ####[facility] [address] [place], [address] Sodium [Moles/Vol] 132 mmol/L Low 133-145 [facility] Comment on above: Performed By: #### L 501.5200, L501.2300, L100.0100, L500.4050 ####[facility] [address] [place], [address] T PROT 4.9 g/dL Low 5.9-8.4 [facility] Comment on above: Performed By: #### L 501.5200, L501.2300, L100.0100, L500.4050 ####[facility] [address] [place], [address] Urea nitrogen [Mass/Vol] 9 mg/dL Normal 4-19 [facility] Comment on above: Performed By: #### L 501.5200, L501.2300, L100.0100, L500.4050 ####[facility] [address] [place], [address] Magnesiumon 11-30-2024 Magnesium [Mass/Vol] 1.9 mg/dL Normal 1.5-2.2 [facility] Comment on above: Performed By: #### L 501.5200, L501.2300, L100.0100, L500.4050 ####[facility] [address] [place], [address] Phosphoruson 11-30-2024 Phosphate [Mass/Vol] 1.8 mg/dL Low 2.7-4.5 [facility] Comment on above: Performed By: #### L 501.5200, L501.2300, L100.0100, L500.4050 ####[facility] [address] [place], [address] Platelet estimateOrdered By: Hill Acuña on 11-30-2024 Platelets LM Ql (Bld) MOD DEC ADEQ [facility] Serum or plasma vancomycin m easurement (mass/volume)Ordered By: Kathie Lemos on 11-30-2024 Vancomycin [Mass/Vol] 17.7 ug/mL High 0.0-15.0 [facility] Vancomycin, Random Levelon 0 11-30-2024 VANCO, RANDOM 17.7 ug/mL High 0.0-15.0 [facility] Comment on above: Result Comment: VANC OMYCIN STANDARD DRUG THERAPY: CRITICAL VALUE IS > 15.0 mg/LVANCOMYCIN HIGH INTENSITY THERAPY: CRITICAL VALUE IS > 20.0 mg/LPLEASE CONTACT PHARMACY SERVICES (#6712) FOR INTERPRETATIONOF RESULTS. THIS RESULT DOES NOT REPRESENT A PEAK OR TROUGHLEVEL FOR THIS DRUG. Performed By: #### L 501.8850 ####[facility] [address] [facility] [address] Vancomycin, Trough Levelon 0 11-30-2024 VANCO, TROUGH 27.2 ug/mL High 5.0-15.0 [facility] Comment on above: Order Comment: Comme nts: Trough to be drawn 30 mins prior to scheduled [id number] Result Comment: Eleazar mmended goal trough ranges are generally 10-15 mcg/mlfor less severe/complicated infections such as cellulitisor UTI and 15-20 mcg/ml for more severe/complicatedinfections such as bacteremia/sepsis, osteomyelitis,pneumonia or meningitis. Goal trough ranges should takeinto account indication, patient-specific factors andorganism AUDIE.VANCOMYCIN STANDARED DRUG THERAPY TROUGH LEVEL: 5.0 - 15.0 mg/LVANCOMYCIN HIGH INTENSITY THERAPY TROUGH LEVEL: 15.0 - 20.0 mg/LHigh Intensity therapy recommended for serious lifethreatening infections include:- Nbkykrefbf-Hmhaedywjwvk-Kcyqzlzau (Ventilator/Healtcare Associated)-SepsisPLEASE CONTACT PHARMACY SERVICES (#0965) FOR INTERPRETATIONOF RESULTS. Performed By: #### L 501.8820 ####[facility] [address] [facility] [id number] Bedside Glucoseon 11-29-2024 FINGERSTICK GLU 251 mg/dL High 74-106 [facility] Comment on above: Result Comment: BRISA GEMENT OF PATIENT CARE PER NURSING PROTOCOL Performed By: #### L 501.080 ####[facility] [address] [facility] [address] FINGERSTICK GLU 210 mg/dL High 74-106 [facility] Comment on above: Result Comment: BRISA GEMENT OF PATIENT CARE PER NURSING PROTOCOL Performed By: #### L 501.080 ####[facility] [address] [place], [address] FINGERSTICK GLU 186 mg/dL High 74-106 [facility] Comment on above: Result Comment: BRISA GEMENT OF PATIENT CARE PER NURSING PROTOCOL Performed By: #### L 501.080 ####[facility] [address] [place], [address] FINGERSTICK GLU 145 mg/dL High 74-106 [facility] Comment on above: Result Comment: BRISA GEMENT OF PATIENT CARE PER NURSING PROTOCOL Performed By: #### L 501.080 ####[facility] [address] [place], [address] CBC W/Diff, Automatedon 11-03 Absolute Lymph 1.35 X10 3/uL Normal 0.83-4.51 [facility] Comment on above: Performed By: #### L 100.0100, L501.5200, L500.4050, L300.3900 ####[facility] [address] [place], [address] Absolute Neut 8.1 X10 3/uL High 2.0-7.7 [facility] Comment on above: Performed By: #### L 100.0100, L501.5200, L500.4050, L300.3900 ####[facility] [address] [place], [address] Basophils/100 WBC (Bld) 0.4 % Normal 0-1 [facility] Comment on above: Performed By: #### L 100.0100, L501.5200, L500.4050, L300.3900 ####[facility] [address] [place], [address] Eosinophils/100 WBC (Bld) 2.5 % Normal 0-5 [facility] Comment on above: Performed By: #### L 100.0100, L501.5200, L500.4050, L300.3900 ####[facility] [address] [place], [address] Erythrocyte distribution width (RBC) [Ratio] 16.5 % High 11.6-14.6 [facility] Comment on above: Performed By: #### L 100.0100, L501.5200, L500.4050, L300.3900 ####[facility] [address] [place], [address] Hematocrit (Bld) [Volume fraction] 22.7 % Low 40-54 [facility] Comment on above: Performed By: #### L 100.0100, L501.5200, L500.4050, L300.3900 ####[facility] [address] [place], [address] Hemoglobin (Bld) [Mass/Vol] 7.6 g/dL Low 13.0-16.5 [facility] Comment on above: Performed By: #### L 100.0100, L501.5200, L500.4050, L300.3900 ####[facility] [address] [place], [address] IG% 0.500 Normal 0.0-0.9 [facility] Comment on above: Result Comment: IG% - Immature Granulocytes (promyelocytes, myelocytes andmetamyelocytes) > 1% indicates that a LEFT SHIFT is Present. Performed By: #### L 100.0100, L501.5200, L500.4050, L300.3900 ####[facility] [address] [place], [address] Lymphocytes/100 WBC (Bld) 12.4 % Low 19-41 [facility] Comment on above: Performed By: #### L 100.0100, L501.5200, L500.4050, L300.3900 ####[facility] [address] [place], [address] MCH (RBC) [Entitic mass] 30.3 pg Normal 27.0-32.0 [facility] Comment on above: Performed By: #### L 100.0100, L501.5200, L500.4050, L300.3900 ####[facility] [address] [place], [address] MCHC (RBC) [Mass/Vol] 33.5 g/dL Normal 32-36 [facility] Comment on above: Performed By: #### L 100.0100, L501.5200, L500.4050, L300.3900 ####[facility] [address] [place], [address] MCV (RBC) [Entitic vol] 90.4 fL Normal 80-94 [facility] Comment on above: Performed By: #### L 100.0100, L501.5200, L500.4050, L300.3900 ####[facility] [address] [place], [address] Monocytes/100 WBC (Bld) 10.4 % High 0-10 [facility] Comment on above: Performed By: #### L 100.0100, L501.5200, L500.4050, L300.3900 ####[facility] [address] [place], [address] Neutrophils/100 WBC (Bld) 73.8 % High 47-70 [facility] Comment on above: Performed By: #### L 100.0100, L501.5200, L500.4050, L300.3900 ####[facility] [address] [place], [address] Nucleated RBC (Bld) [#/Vol] 0 10*3/uL Normal 0-5 [facility] Comment on above: Performed By: #### L 100.0100, L501.5200, L500.4050, L300.3900 ####[facility] [address] [place], [address] Platelet mean volume (Bld) [Entitic vol] 12.7 fL High 6.2-12.0 [facility] Comment on above: Performed By: #### L 100.0100, L501.5200, L500.4050, L300.3900 ####[facility] [address] [place], [address] Platelets (Bld) [#/Vol] 114 10*3/uL Low 150-450 [facility] Comment on above: Performed By: #### L 100.0100, L501.5200, L500.4050, L300.3900 ####[facility] [address] [place], [address] RBC (Bld) [#/Vol] 2.51 10*6/uL Low 4.6-6.2 [facility] Comment on above: Performed By: #### L 100.0100, L501.5200, L500.4050, L300.3900 ####[facility] [address] [place], [address] RDW SD 54.1 fl High 35.1-43.9 [facility] Comment on above: Performed By: #### L 100.0100, L501.5200, L500.4050, L300.3900 ####[facility] [address] [place], [address] WBC (Bld) [#/Vol] 10.9 10*3/uL Normal 4.4-11.0 [facility] Comment on above: Performed By: #### L 100.0100, L501.5200, L500.4050, L300.3900 ####[facility] [address] [place], [address] Comprehensive Metabolic [facility] 11-29-2024 Albumin [Mass/Vol] 2.6 g/dL Low 3.5-5.0 [facility] Comment on above: Performed By: #### L 100.0100, L501.5200, L500.4050, L300.3900 ####[facility] [address] [place], [address] Albumin/Globulin [Mass ratio] 1.1 {ratio} Normal 0.9-2.4 [facility] Comment on above: Performed By: #### L 100.0100, L501.5200, L500.4050, L300.3900 ####[facility] [address] [place], [address] ALK PHOS 172 U/L High 40-129 [facility] Comment on above: Performed By: #### L 100.0100, L501.5200, L500.4050, L300.3900 ####[facility] [address] [place], [address] ALT [Catalytic activity/Vol] 30 U/L Normal <=46 [facility] Comment on above: Performed By: #### L 100.0100, L501.5200, L500.4050, L300.3900 ####[facility] [address] [place], [address] AST [Catalytic activity/Vol] 39 U/L High <=37 [facility] Comment on above: Performed By: #### L 100.0100, L501.5200, L500.4050, L300.3900 ####[facility] [address] [place], [address] Bilirubin [Mass/Vol] 1.20 mg/dL Normal 0.00-1.30 [facility] Comment on above: Performed By: #### L 100.0100, L501.5200, L500.4050, L300.3900 ####[facility] [address] [place], [address] BUN/CRE 13.8 RATIO Normal 10-20 [facility] Comment on above: Performed By: #### L 100.0100, L501.5200, L500.4050, L300.3900 ####[facility] [address] [place], [address] Calcium [Mass/Vol] 7.7 mg/dL Normal 7.6-11.0 [facility] Comment on above: Performed By: #### L 100.0100, L501.5200, L500.4050, L300.3900 ####[facility] [address] [place], [address] Chloride [Moles/Vol] 107 mmol/L Normal 98-108 [facility] Comment on above: Performed By: #### L 100.0100, L501.5200, L500.4050, L300.3900 ####[facility] [address] [place], [address] CO2 [Moles/Vol] 17.9 mmol/L Low 21.0-32.0 [facility] Comment on above: Performed By: #### L 100.0100, L501.5200, L500.4050, L300.3900 ####[facility] [address] [place], [address] Creatinine [Mass/Vol] 0.96 mg/dL Normal 0.70-1.20 [facility] Comment on above: Performed By: #### L 100.0100, L501.5200, L500.4050, L300.3900 ####[facility] [address] [place], [address] ECRCL 98.35 ml/min Normal 50-250 [facility] Comment on above: Performed By: #### L 100.0100, L501.5200, L500.4050, L300.3900 ####[facility] [address] [place], [address] GAP 9 Normal 5-15 [facility] Comment on above: Performed By: #### L 100.0100, L501.5200, L500.4050, L300.3900 ####[facility] [address] [place], [address] GFR/1.73 sq M.predicted among non-blacks MDRD (S/P/Bld) [Vol rate/Area] 92 mL/min/{1.73_m2} Normal >60 [facility] Comment on above: Result Comment: mL/m in/1.73m2 CKD-EPI Creatinine Equation (2020) Performed By: #### L 100.0100, L501.5200, L500.4050, L300.3900 ####[facility] [address] [place], [address] Globulin (S) [Mass/Vol] 2.3 g/dL Normal 2.2-4.2 [facility] Comment on above: Performed By: #### L 100.0100, L501.5200, L500.4050, L300.3900 ####[facility] [address] [place], [address] Glucose [Mass/Vol] 144 mg/dL High 70-99 [facility] Comment on above: Performed By: #### L 100.0100, L501.5200, L500.4050, L300.3900 ####[facility] [address] [place], [address] Potassium [Moles/Vol] 3.6 mmol/L Normal 3.3-5.1 [facility] Comment on above: Performed By: #### L 100.0100, L501.5200, L500.4050, L300.3900 ####[facility] [address] [place], [address] Sodium [Moles/Vol] 134 mmol/L Normal 133-145 [facility] Comment on above: Performed By: #### L 100.0100, L501.5200, L500.4050, L300.3900 ####[facility] [address] [place], [address] T PROT 4.9 g/dL Low 5.9-8.4 [facility] Comment on above: Performed By: #### L 100.0100, L501.5200, L500.4050, L300.3900 ####[facility] [address] [place], [address] Urea nitrogen [Mass/Vol] 13 mg/dL Normal 4-19 [facility] Comment on above: Performed By: #### L 100.0100, L501.5200, L500.4050, L300.3900 ####[facility] [address] [place], [address] Magnesiumon 11-29-2024 Magnesium [Mass/Vol] 1.1 mg/dL Low 1.5-2.2 [facility] Comment on above: Performed By: #### L 100.0100, L501.5200, L500.4050, L300.3900 ####[facility] [address] [place], [address] Prothrombin Time w/INRon INR Coag (PPP) [Relative time] 1.8 {INR} Normal [facility] Comment on above: Performed By: #### L 100.0100, L501.5200, L500.4050, L300.3900 ####[facility] [address] [place], [address] PT Coag (PPP) [Time] 21.1 s High 11.7-14.9 [facility] Comment on above: Performed By: #### L 100.0100, L501.5200, L500.4050, L300.3900 ####[facility] [address] [place], [address] Prothrombin timeOrdered By: Kathie Lemos on 11-29-2024 PT Coag (PPP) [Time] 21.1 s High 11.7-14.9 [facility] Abdomen/Pelvis W IV Cont ONL Yon 11-28-2024 Abdomen/Pelvis W IV Cont ONLY Normal [facility] Ammoniaon 11-28-2024 Ammonia (P) [Moles/Vol] 68.4 umol/L High 16-60 [facility] Comment on above: Result Comment: Hemo lysis present, Results??could be affected.?? Performed By: #### L 503.5510 ####[facility] [address] [place], [address] Basic Metabolic Profile (BMP )on 11-28-2024 BUN/CRE 11.4 RATIO Normal 10-20 [facility] Comment on above: Performed By: #### L 500.3400, L501.2450, L500.2500, L100.0100 ####[facility] [address] [place], [address] Calcium [Mass/Vol] 8.3 mg/dL Normal 7.6-11.0 [facility] Comment on above: Performed By: #### L 500.3400, L501.2450, L500.2500, L100.0100 ####[facility] [address] [place], [address] Chloride [Moles/Vol] 107 mmol/L Normal 98-108 [facility] Comment on above: Performed By: #### L 500.3400, L501.2450, L500.2500, L100.0100 ####[facility] [address] [place], [address] CO2 [Moles/Vol] 17.7 mmol/L Low 21.0-32.0 [facility] Comment on above: Performed By: #### L 500.3400, L501.2450, L500.2500, L100.0100 ####[facility] [address] [place], [address] Creatinine [Mass/Vol] 1.09 mg/dL Normal 0.70-1.20 [facility] Comment on above: Performed By: #### L 500.3400, L501.2450, L500.2500, L100.0100 ####[facility] [address] [place], [address] ECRCL 85.91 ml/min Normal 50-250 [facility] Comment on above: Performed By: #### L 500.3400, L501.2450, L500.2500, L100.0100 ####[facility] [address] [place], [address] GAP 12 Normal 5-15 [facility] Comment on above: Performed By: #### L 500.3400, L501.2450, L500.2500, L100.0100 ####[facility] [address] [place], [address] GFR/1.73 sq M.predicted among non-blacks MDRD (S/P/Bld) [Vol rate/Area] 79 mL/min/{1.73_m2} Normal >60 [facility] Comment on above: Result Comment: mL/m in/1.73m2 CKD-EPI Creatinine Equation (2020) Performed By: #### L 500.3400, L501.2450, L500.2500, L100.0100 ####[facility] [address] [place], [address] Glucose [Mass/Vol] 157 mg/dL High 70-99 [facility] Comment on above: Performed By: #### L 500.3400, L501.2450, L500.2500, L100.0100 ####[facility] [address] [place], [address] Potassium [Moles/Vol] 3.8 mmol/L Normal 3.3-5.1 [facility] Comment on above: Performed By: #### L 500.3400, L501.2450, L500.2500, L100.0100 ####[facility] [address] [place], [address] Sodium [Moles/Vol] 137 mmol/L Normal 133-145 [facility] Comment on above: Performed By: #### L 500.3400, L501.2450, L500.2500, L100.0100 ####[facility] [address] [place], [address] Urea nitrogen [Mass/Vol] 12 mg/dL Normal 4-19 [facility] Comment on above: Performed By: #### L 500.3400, L501.2450, L500.2500, L100.0100 ####[facility] [address] [place], [address] Bedside Glucoseon 11-28-2024 FINGERSTICK GLU 164 mg/dL High 74-106 [facility] Comment on above: Result Comment: BRISA MOROCHO OF PATIENT CARE PER NURSING PROTOCOL Performed By: #### L 501.080 ####[facility] [address] [place], [address] Bilirubin Test strip Ql (U)O rdered By: Rachel Joiner on 11-28-2024 Bilirubin Ql (U) Negative Negative [facility] Bilirubin directOrdered By: Rachel Joiner on 11-28-2024 Bilirubin.direct [Mass/Vol] 0.72 mg/dL High 0.00-0.30 [facility] CBC W/Diff, Automatedon 11-03 Absolute Lymph 1.11 X10 3/uL Normal 0.83-4.51 [facility] Comment on above: Performed By: #### L 500.3400, L501.2450, L500.2500, L100.0100 ####[facility] [address] [place], [address] Absolute Neut 9.2 X10 3/uL High 2.0-7.7 [facility] Comment on above: Performed By: #### L 500.3400, L501.2450, L500.2500, L100.0100 ####[facility] [address] [place], [address] Basophils/100 WBC (Bld) 0.2 % Normal 0-1 [facility] Comment on above: Performed By: #### L 500.3400, L501.2450, L500.2500, L100.0100 ####[facility] [address] [place], [address] Eosinophils/100 WBC (Bld) 1.8 % Normal 0-5 [facility] Comment on above: Performed By: #### L 500.3400, L501.2450, L500.2500, L100.0100 ####[facility] [address] [place], [address] Erythrocyte distribution width (RBC) [Ratio] 16.5 % High 11.6-14.6 [facility] Comment on above: Performed By: #### L 500.3400, L501.2450, L500.2500, L100.0100 ####[facility] [address] [place], [address] Hematocrit (Bld) [Volume fraction] 26.0 % Low 40-54 [facility] Comment on above: Performed By: #### L 500.3400, L501.2450, L500.2500, L100.0100 ####[facility] [address] [place], [address] Hemoglobin (Bld) [Mass/Vol] 8.4 g/dL Low 13.0-16.5 [facility] Comment on above: Performed By: #### L 500.3400, L501.2450, L500.2500, L100.0100 ####[facility] [address] [place], [address] IG% 0.300 Normal 0.0-0.9 [facility] Comment on above: Result Comment: IG% - Immature Granulocytes (promyelocytes, myelocytes andmetamyelocytes) > 1% indicates that a LEFT SHIFT is Present. Performed By: #### L 500.3400, L501.2450, L500.2500, L100.0100 ####[facility] [address] [place], [address] Lymphocytes/100 WBC (Bld) 9.5 % Low 19-41 [facility] Comment on above: Performed By: #### L 500.3400, L501.2450, L500.2500, L100.0100 ####[facility] [address] [place], [address] MCH (RBC) [Entitic mass] 30.3 pg Normal 27.0-32.0 [facility] Comment on above: Performed By: #### L 500.3400, L501.2450, L500.2500, L100.0100 ####[facility] [address] [place], [address] MCHC (RBC) [Mass/Vol] 32.3 g/dL Normal 32-36 [facility] Comment on above: Performed By: #### L 500.3400, L501.2450, L500.2500, L100.0100 ####[facility] [address] [place], [address] MCV (RBC) [Entitic vol] 93.9 fL Normal 80-94 [facility] Comment on above: Performed By: #### L 500.3400, L501.2450, L500.2500, L100.0100 ####[facility] [address] [place], [address] Monocytes/100 WBC (Bld) 9.1 % Normal 0-10 [facility] Comment on above: Performed By: #### L 500.3400, L501.2450, L500.2500, L100.0100 ####[facility] [address] [place], [address] Neutrophils/100 WBC (Bld) 79.1 % High 47-70 [facility] Comment on above: Performed By: #### L 500.3400, L501.2450, L500.2500, L100.0100 ####[facility] [address] [place], [address] Nucleated RBC (Bld) [#/Vol] 0 10*3/uL Normal 0-5 [facility] Comment on above: Performed By: #### L 500.3400, L501.2450, L500.2500, L100.0100 ####[facility] [address] [place], [address] Platelet mean volume (Bld) [Entitic vol] 12.4 fL High 6.2-12.0 [facility] Comment on above: Performed By: #### L 500.3400, L501.2450, L500.2500, L100.0100 ####[facility] [address] [place], [address] Platelets (Bld) [#/Vol] 118 10*3/uL Low 150-450 [facility] Comment on above: Performed By: #### L 500.3400, L501.2450, L500.2500, L100.0100 ####[facility] [address] [place], [address] RBC (Bld) [#/Vol] 2.77 10*6/uL Low 4.6-6.2 [facility] Comment on above: Performed By: #### L 500.3400, L501.2450, L500.2500, L100.0100 ####[facility] [address] [place], [address] RDW SD 56.3 fl High 35.1-43.9 [facility] Comment on above: Performed By: #### L 500.3400, L501.2450, L500.2500, L100.0100 ####[facility] [address] [place], [address] WBC (Bld) [#/Vol] 11.7 10*3/uL High 4.4-11.0 [facility] Comment on above: Performed By: #### L 500.3400, L501.2450, L500.2500, L100.0100 ####[facility] [address] [place], [address] Emergency Department Summary on 11-28-2024 Emergency Department Summary Normal [facility] H AND P Exam - Hospitaliston 11-28-2024 H&P Exam - Hospitalist Normal [facility] Ketones Test strip Ql (U)Ord ered By: Rachel Joiner on 11-28-2024 Ketones Ql (U) 5 mg/dl High Negative [facility] Lactic Acidon 11-28-2024 Lactate [Moles/Vol] 3.6 mmol/L Invalid Interpretation Code 0.0-2.0 [facility] Comment on above: Order Comment: DR. Amalia Lindsay FOOT DRAW. CHARTED BY RN Result Comment: Crit ical Result(s) Called at 1851: by: BAKARI HENNESSY. ??Results read back by same. Performed By: #### L 503.6005 ####[facility] [address] [place], [address] Lactate [Moles/Vol] 3.5 mmol/L Invalid Interpretation Code 0.0-2.0 [facility] Comment on above: Order Comment: Y Result Comment: Crit ical Result(s) Called at 1417: by: BAKARI JONES. ??Results read back by same. Performed By: #### L 503.6005 ####[facility] [address] [place], [address] Lipaseon 11-28-2024 Lipase [Catalytic activity/Vol] 54 U/L Normal 13-75 [facility] Comment on above: Result Comment: Siddhartha bhat note:LIPASE revised reference range effective 22.New Lipase methodology. Expected to produce lower valuesthan the previous assay method.NEW Reference Range: 13 - 75 U/L Performed By: #### L 500.3400, L501.2450, L500.2500, L100.0100 ####[facility] [address] [place], [address] Liver Profileon 11-28-2024 Albumin [Mass/Vol] 2.8 g/dL Low 3.5-5.0 [facility] Comment on above: Performed By: #### L 500.3400, L501.2450, L500.2500, L100.0100 ####[facility] [address] [place], [address] ALK PHOS 189 U/L High 40-129 [facility] Comment on above: Performed By: #### L 500.3400, L501.2450, L500.2500, L100.0100 ####[facility] [address] [place], [address] ALT [Catalytic activity/Vol] 31 U/L Normal <=46 [facility] Comment on above: Performed By: #### L 500.3400, L501.2450, L500.2500, L100.0100 ####[facility] [address] [place], [address] AST [Catalytic activity/Vol] 39 U/L High <=37 [facility] Comment on above: Performed By: #### L 500.3400, L501.2450, L500.2500, L100.0100 ####[facility] [address] [place], [address] Bilirubin [Mass/Vol] 1.22 mg/dL Normal 0.00-1.30 [facility] Comment on above: Performed By: #### L 500.3400, L501.2450, L500.2500, L100.0100 ####[facility] [address] [place], [address] Bilirubin.direct [Mass/Vol] 0.72 mg/dL High 0.00-0.30 [facility] Comment on above: Performed By: #### L 500.3400, L501.2450, L500.2500, L100.0100 ####[facility] [address] [place], [address] Globulin (S) [Mass/Vol] 2.6 g/dL Normal 2.2-4.2 [facility] Comment on above: Performed By: #### L 500.3400, L501.2450, L500.2500, L100.0100 ####[facility] [address] [place], [address] T PROT 5.4 g/dL Low 5.9-8.4 [facility] Comment on above: Performed By: #### L 500.3400, L501.2450, L500.2500, L100.0100 ####[facility] [address] [place], [address] Mucus LM Ql (Urine sed)Order ed By: Rachel Joiner on 11-28-2024 Mucus Ql (Urine sed) 0 SEEN /hpf [facility] Nitrite Test strip Ql (U)Ord ered By: Rachel Joiner on 11-28-2024 Nitrite Ql (U) Positive High Negative [facility] Protein Test strip Ql (U)Ord ered By: Rachel Joiner on 11-28-2024 Protein Ql (U) 100 mg/dl High Negative [facility] Squamous epithelial cells de tection in urine sediment by light microscopyOrdered By: Rachel Joiner on 11-28-2024 Epithelial cells.squamous LM Ql (Urine sed) 0-5 SEEN /hpf 0-5 [facility] Urinalysis, Completeon 11-28 BACTERIA 1+ /hpf Normal None Seen [facility] Comment on above: Order Comment: COLOR OF URINE MAY AFFECT DIPSTICK RESULTS.CLEAN CATCH Performed By: #### L 400.0001 ####[facility] [address] [place], [address] EPI,SQUAMOUS 0-5 SEEN Normal 0-5 [facility] Comment on above: Order Comment: COLOR OF URINE MAY AFFECT DIPSTICK RESULTS.CLEAN CATCH Performed By: #### L 400.0001 ####[facility] [address] [place], [address] RBC 50-100 SEEN Normal 0-5 [facility] Comment on above: Order Comment: COLOR OF URINE MAY AFFECT DIPSTICK RESULTS.CLEAN CATCH Performed By: #### L 400.0001 ####[facility] [address] [place], [address] WBC 50-100 SEEN Normal 0-5 [facility] Comment on above: Order Comment: COLOR OF URINE MAY AFFECT DIPSTICK RESULTS.CLEAN CATCH Performed By: #### L 400.0001 ####[facility] [address] [place], [address] Mucus Ql (Urine sed) 0 SEEN Normal [facility] Comment on above: Order Comment: COLOR OF URINE MAY AFFECT DIPSTICK RESULTS.CLEAN CATCH Performed By: #### L 400.0001 ####[facility] [address] [place], [address] Urine clarityOrdered By: Shi Joiner on 11-28-2024 Clarity (U) Cloudy Clear [facility] Urine color determinationOrd ered By: Rachel Joiner on 11-28-2024 Color (U) Willow Yellow [facility] Urine cultureOrdered By: Tyree Lemos on 11-28-2024 Bacteria identified Cx Nom (U) ESBL Klebsiella pneumoniae pne Abnormal [facility] Urine glucose detectionOrder ed By: Rachel Joiner on 11-28-2024 Glucose Ql (U) Normal mg/dl Normal [facility] Urine leukocyte esterase det ection by dipstickOrdered By: Rachel Joiner on 11-28-2024 Leukocyte esterase Test strip Ql (U) 500 /ul High Negative [facility] Urine pHOrdered By: Rachel silva on 11-28-2024 pH (U) 6.5 [pH] 5.0 - 8.0 [facility] Urine sediment bacteria coun t by microscopy (number/high power field)Ordered By: Rachel Joiner on 11-28-2024 Bacteria LM.HPF (Urine sed) [#/Area] 1 /[HPF] None Seen [facility] Urine specific gravity measu rementOrdered By: Rachel Joiner on 11-28-2024 Specific gravity (U) [Rel density] 1.010 1.002-1.030 [facility] Urine urobilinogen measureme ntOrdered By: Rachel Joiner on 11-28-2024 Urobilinogen Ql (U) Normal mg/dl Normal [facility] Venous blood ammonia measure mentOrdered By: Rachel Joiner on 11-28-2024 Ammonia (P) [Moles/Vol] 68.4 umol/L High 16-60 [facility] White blood cell countOrdere d By: Rachel Joiner on 11-28-2024 White blood cell count 50-100 SEEN /hpf 0-5 [facility] Absolute lymphocyte countOrd ered By: Anurag Irene on 11-25-2024 Lymphocytes Auto (Unsp spec) [#/Vol] 0.92 10*3/uL 0.83-4.51 [facility] Anion gap in Serum or Plasma Ordered By: Anurag Irene on 11-25-2024 Anion gap [Moles/Vol] 8 mmol/L 5-15 [facility] Automated lymphocyte count a s percentage of total leukocytesOrdered By: Anurag Irene on 11-25-2024 Lymphocytes/100 WBC Auto (Unsp spec) 16.7 % Low 19-41 [facility] BUN/creatinine ratioOrdered By: Anurag Irene on 11-25-2024 Urea nitrogen/Creatinine [Mass ratio] 9.2 mg/mg Low 10-20 [facility] Basophil percentageOrdered B y: Anurag Irene on 11-25-2024 Basophils/100 WBC (Bld) 0.4 % 0-1 [facility] Bedside Glucoseon 11-25-2024 FINGERSTICK GLU 222 mg/dL High 74-106 [facility] Comment on above: Result Comment: BRISA GEMENT OF PATIENT CARE PER NURSING PROTOCOL Performed By: #### L 501.080 ####[facility] [address] [facility] [address] FINGERSTICK GLU 196 mg/dL High [address] [place] [address] Comment on above: Result Comment: BRISA GEMENT OF PATIENT CARE PER NURSING PROTOCOL Performed By: #### L 501.080 ####[facility] [address] [place], [address] FINGERSTICK GLU 166 mg/dL High [address] [place] [address] Comment on above: Result Comment: BRISA GEMENT OF PATIENT CARE PER NURSING PROTOCOL Performed By: #### L 501.080 ####[facility] [address] [place], [address] FINGERSTICK GLU 209 mg/dL High [address] [place] [address] Comment on above: Result Comment: BRISA GEMENT OF PATIENT CARE PER NURSING PROTOCOL Performed By: #### L 501.080 ####[facility] [address] [facility] [address] Bilirubin, totalOrdered By: Anurag Irene on 11-25-2024 Bilirubin [Mass/Vol] 1.07 mg/dL 0.00-1.30 [facility] CBC W/Diff, Automatedon 11-03 Absolute Lymph 0.92 X10 3/uL Normal 0.83-4.51 [facility] Comment on above: Performed By: #### L 500.4050, L100.0100 ####[facility] [address] [place], [address] Absolute Neut 3.6 X10 3/uL Normal 2.0-7.7 [facility] Comment on above: Performed By: #### L 500.4050, L100.0100 ####[facility] [address] [place], [address] Basophils/100 WBC (Bld) 0.4 % Normal 0-1 [facility] Comment on above: Performed By: #### L 500.4050, L100.0100 ####[facility] [address] [place], [address] Eosinophils/100 WBC (Bld) 4.2 % Normal 0-5 [facility] Comment on above: Performed By: #### L 500.4050, L100.0100 ####[facility] [address] [place], [address] Erythrocyte distribution width (RBC) [Ratio] 15.8 % High 11.6-14.6 [facility] Comment on above: Performed By: #### L 500.4050, L100.0100 ####[facility] [address] [place], [address] Hematocrit (Bld) [Volume fraction] 21.5 % Low 40-54 [facility] Comment on above: Performed By: #### L 500.4050, L100.0100 ####[facility] [address] [place], [address] Hemoglobin (Bld) [Mass/Vol] 7.0 g/dL Low 13.0-16.5 [facility] Comment on above: Performed By: #### L 500.4050, L100.0100 ####[facility] [address] [place], [address] IG% 0.400 Normal 0.0-0.9 [facility] Comment on above: Result Comment: IG% - Immature Granulocytes (promyelocytes, myelocytes andmetamyelocytes) > 1% indicates that a LEFT SHIFT is Present. Performed By: #### L 500.4050, L100.0100 ####[facility] [address] [place], [address] Lymphocytes/100 WBC (Bld) 16.7 % Low 19-41 [facility] Comment on above: Performed By: #### L 500.4050, L100.0100 ####[facility] [address] [place], [address] MCH (RBC) [Entitic mass] 30.3 pg Normal 27.0-32.0 [facility] Comment on above: Performed By: #### L 500.4050, L100.0100 ####[facility] [address] [place], [address] MCHC (RBC) [Mass/Vol] 32.6 g/dL Normal 32-36 [facility] Comment on above: Performed By: #### L 500.4050, L100.0100 ####[facility] [address] [place], [address] MCV (RBC) [Entitic vol] 93.1 fL Normal 80-94 [facility] Comment on above: Performed By: #### L 500.4050, L100.0100 ####[facility] [address] [place], [address] Monocytes/100 WBC (Bld) 12.7 % High 0-10 [facility] Comment on above: Performed By: #### L 500.4050, L100.0100 ####[facility] [address] [place], [address] Neutrophils/100 WBC (Bld) 65.6 % Normal 47-70 [facility] Comment on above: Performed By: #### L 500.4050, L100.0100 ####[facility] [address] [place], [address] Nucleated RBC (Bld) [#/Vol] 0 10*3/uL Normal 0-5 [facility] Comment on above: Performed By: #### L 500.4050, L100.0100 ####[facility] [address] [place], [address] Platelet mean volume (Bld) [Entitic vol] 11.5 fL Normal 6.2-12.0 [facility] Comment on above: Performed By: #### L 500.4050, L100.0100 ####[facility] [address] [place], [address] Platelets (Bld) [#/Vol] 82 10*3/uL Low 150-450 [facility] Comment on above: Performed By: #### L 500.4050, L100.0100 ####[facility] [address] [place], [address] RBC (Bld) [#/Vol] 2.31 10*6/uL Low 4.6-6.2 [facility] Comment on above: Performed By: #### L 500.4050, L100.0100 ####[facility] [address] [place], [address] RDW SD 52.9 fl High 35.1-43.9 [facility] Comment on above: Performed By: #### L 500.4050, L100.0100 ####[facility] [address] [place], [address] WBC (Bld) [#/Vol] 5.5 10*3/uL Normal 4.4-11.0 [facility] Comment on above: Performed By: #### L 500.4050, L100.0100 ####[facility] [address] [place], [address] Carbon dioxide, total [Moles /volume] in Central venous bloodOrdered By: Anurag Irene on 11-25-2024 CO2 [Moles/Vol] 19.3 mmol/L Low 21.0-32.0 [facility] Chloride assayOrdered By: Francois Irene on 11-25-2024 Chloride [Moles/Vol] 108 mmol/L 98-108 [facility] Comprehensive Metabolic Prof ilon 11-25-2024 Albumin [Mass/Vol] 2.7 g/dL Low 3.5-5.0 [facility] Comment on above: Performed By: #### L 500.4050, L100.0100 ####[facility] [address] [place], [address] Albumin/Globulin [Mass ratio] 1.2 {ratio} Normal 0.9-2.4 [facility] Comment on above: Performed By: #### L 500.4050, L100.0100 ####[facility] [address] [place], [address] ALK PHOS 168 U/L High 40-129 [facility] Comment on above: Performed By: #### L 500.4050, L100.0100 ####[facility] [address] [place], [address] ALT [Catalytic activity/Vol] 41 U/L Normal <=46 [facility] Comment on above: Performed By: #### L 500.4050, L100.0100 ####[facility] [address] [place], [address] AST [Catalytic activity/Vol] 60 U/L High <=37 [facility] Comment on above: Performed By: #### L 500.4050, L100.0100 ####[facility] [address] [place], [address] Bilirubin [Mass/Vol] 1.07 mg/dL Normal 0.00-1.30 [facility] Comment on above: Performed By: #### L 500.4050, L100.0100 ####[facility] [address] [place], [address] BUN/CRE 9.2 RATIO Low 10-20 [facility] Comment on above: Performed By: #### L 500.4050, L100.0100 ####[facility] [address] [place], [address] Calcium [Mass/Vol] 8.3 mg/dL Normal 7.6-11.0 [facility] Comment on above: Performed By: #### L 500.4050, L100.0100 ####[facility] [address] [place], [address] Chloride [Moles/Vol] 108 mmol/L Normal 98-108 [facility] Comment on above: Performed By: #### L 500.4050, L100.0100 ####[facility] [address] [place], [address] CO2 [Moles/Vol] 19.3 mmol/L Low 21.0-32.0 [facility] Comment on above: Performed By: #### L 500.4050, L100.0100 ####[facility] [address] [place], [address] Creatinine [Mass/Vol] 0.86 mg/dL Normal 0.70-1.20 [facility] Comment on above: Performed By: #### L 500.4050, L100.0100 ####[facility] [address] [place], [address] ECRCL 110.58 ml/min Normal 50-250 [facility] Comment on above: Performed By: #### L 500.4050, L100.0100 ####[facility] [address] [place], [address] GAP 8 Normal 5-15 [facility] Comment on above: Performed By: #### L 500.4050, L100.0100 ####[facility] [address] [place], [address] GFR/1.73 sq M.predicted among non-blacks MDRD (S/P/Bld) [Vol rate/Area] 100 mL/min/{1.73_m2} Normal >60 [facility] Comment on above: Result Comment: mL/m in/1.73m2 CKD-EPI Creatinine Equation (2020) Performed By: #### L 500.4050, L100.0100 ####[facility] [address] [place], [address] Globulin (S) [Mass/Vol] 2.2 g/dL Normal 2.2-4.2 [facility] Comment on above: Performed By: #### L 500.4050, L100.0100 ####[facility] [address] [place], [address] Glucose [Mass/Vol] 179 mg/dL High 70-99 [facility] Comment on above: Performed By: #### L 500.4050, L100.0100 ####[facility] [address] [place], [address] Potassium [Moles/Vol] 4.2 mmol/L Normal 3.3-5.1 [facility] Comment on above: Performed By: #### L 500.4050, L100.0100 ####[facility] [address] [place], [address] Sodium [Moles/Vol] 135 mmol/L Normal 133-145 [facility] Comment on above: Performed By: #### L 500.4050, L100.0100 ####[facility] [address] [place], [address] T PROT 4.9 g/dL Low 5.9-8.4 [facility] Comment on above: Performed By: #### L 500.4050, L100.0100 ####[facility] [address] [place], [place], [address] Urea nitrogen [Mass/Vol] 8 mg/dL Normal 4-19 [facility] Comment on above: Performed By: #### L 500.4050, L100.0100 ####[facility] [address] [place], [place], [address] Discharge Instructionon 11-03 Discharge Instruction Normal [facility] Eosinophil percentageOrdered By: Anurag Irene on 11-25-2024 Eosinophils/100 WBC (Bld) 4.2 % 0-5 [facility] Erythrocyte distribution wid th ratioOrdered By: Anurag Irene on 11-25-2024 Erythrocyte distribution width (RBC) [Ratio] 15.8 % High 11.6-14.6 [facility] Erythrocyte distribution wid th standard deviationOrdered By: Anurag Irene on 11-25-2024 Erythrocyte distribution width (RBC) [Ratio] 52.9 fl High 35.1-43.9 [facility] Glomerular filtration rate ( GFR) estimation/1.73 sq m using serum, plasma, or whole bOrdered By: Anurag Irene on 11-25-2024 GFR/1.73 sq M.predicted among non-blacks MDRD (S/P/Bld) [Vol rate/Area] 100 mL/min/{1.73_m2} >60 [facility] Glucose measurement at bedsi deOrdered By: Anurag Irene on 11-25-2024 Glucose [Mass/Vol] 222 mg/dL High 74-106 [facility] Hematocrit Auto (Bld) [Volum e fraction]Ordered By: Anurag Irene on 11-25-2024 Hematocrit (Bld) [Volume fraction] 21.5 % Low 40-54 [facility] Hemoglobin measurementOrdere d By: Anurag Irene on 11-25-2024 Hemoglobin (Bld) [Mass/Vol] 7.0 g/dL Low 13.0-16.5 [facility] Immature granulocytes/100 WB C Auto (Bld)Ordered By: Anurag Irene on 11-25-2024 Immature granulocytes/100 WBC (Bld) 0.400 % 0.0-0.9 [facility] MCV (mean corpuscular volume ) determinationOrdered By: Anurag Irene on 11-25-2024 MCV (RBC) [Entitic vol] 93.1 fL 80-94 [facility] Mean corpuscular hemoglobin (MCH) determinationOrdered By: Anurag Irene on 11-25-2024 MCH (RBC) [Entitic mass] 30.3 pg 27.0-32.0 [facility] Monocyte percentageOrdered B y: Anurag Irene on 11-25-2024 Monocytes/100 WBC (Bld) 12.7 % High 0-10 [facility] Neutrophil percentageOrdered By: Anurag Irene on 11-25-2024 Neutrophils/100 WBC (Bld) 65.6 % 47-70 [facility] No Panel InformationOrdered By: Anurag Irene on 11-25-2024 60 U/L High <38 [facility] Platelet countOrdered By: Francois Irene on 11-25-2024 Platelets (Bld) [#/Vol] 82 10*3/uL Low 150-450 [facility] Potassium measurement (mass/ volume)Ordered By: Anurag Irene on 11-25-2024 Potassium (Unsp spec) [Mass/Vol] 4.2 mmol/L 3.3-5.1 [facility] RBC Auto (Bld) [#/Vol]Ordere d By: Anurag Irene on 11-25-2024 RBC (Bld) [#/Vol] 2.31 10*6/uL Low 4.6-6.2 [facility] Serum creatinine measurement (mass/volume)Ordered By: Anurag Irene on 11-25-2024 Creatinine [Mass/Vol] 0.86 mg/dL 0.70-1.20 [facility] Serum globulin measurementOr dered By: Anurag Irene on 11-25-2024 Globulin (S) [Mass/Vol] 2.2 g/dL 2.2-4.2 [facility] Serum glucose measurement (m ass/volume)Ordered By: Anurga Irene on 11-25-2024 Glucose [Mass/Vol] 179 mg/dL High 70-99 [facility] Serum or plasma alanine thomas otransferase (ALT) measurementOrdered By: Anurag Irene on 11-25-2024 ALT [Catalytic activity/Vol] 41 U/L <47 [facility] Serum or plasma albumin roosevelt urement (mass/volume)Ordered By: Anurag Irene on 11-25-2024 Albumin [Mass/Vol] 2.7 g/dL Low 3.5-5.0 [facility] Serum or plasma albumin/glob ulin mass ratioOrdered By: Anurag Irene on 11-25-2024 Albumin/Globulin [Mass ratio] 1.2 {ratio} 0.9-2.4 [facility] Serum or plasma alkaline kendrick sphatase measurementOrdered By: Anurag rIene on 11-25-2024 ALP [Catalytic activity/Vol] 168 U/L High 40-129 [facility] Serum or plasma calcium roosevelt urement (mass/volume)Ordered By: Anurag Irene on 11-25-2024 Calcium [Mass/Vol] 8.3 mg/dL 7.6-11.0 [facility] Serum or plasma urea nitroge n measurement (mass/volume)Ordered By: Anurag Irene on 11-25-2024 Urea nitrogen [Mass/Vol] 8 mg/dL 4-19 [facility] Sodium levelOrdered By: Marni Irene on 11-25-2024 Sodium [Moles/Vol] 135 mmol/L 133-145 [facility] Total proteinOrdered By: [place] Irene on 11-25-2024 Protein [Mass/Vol] 4.9 g/dL Low 5.9-8.4 [facility] White blood cell (WBC) count Ordered By: Anurag Irene on 11-25-2024 WBC (Bld) [#/Vol] 5.5 10*3/uL 4.4-11.0 [facility] BRCon 11-24-2024 RC Normal [facility] Comment on above: Result Comment: [id number] OP RC TRANSFUSED 11/24/24 1327 Performed By: #### B RC, BTS ####[facility] [address] [place], [address] Bedside Glucoseon 11-24-2024 FINGERSTICK GLU 236 mg/dL High [address] [place] [address] Comment on above: Result Comment: BRISA GEMENT OF PATIENT CARE PER NURSING PROTOCOL Performed By: #### L 501.080 ####[facility] [address] [place], [address] FINGERSTICK GLU 187 mg/dL High [address] [place] [address] Comment on above: Result Comment: BRISA GEMENT OF PATIENT CARE PER NURSING PROTOCOL Performed By: #### L 501.080 ####[facility] [address] [place], [address] FINGERSTICK GLU 242 mg/dL High [address] [place] [address] Comment on above: Result Comment: BRISA GEMENT OF PATIENT CARE PER NURSING PROTOCOL Performed By: #### L 501.080 ####[facility] [address] [place], [address] FINGERSTICK GLU 184 mg/dL High [facility]106 [facility] Comment on above: Result Comment: BRISA GEMENT OF PATIENT CARE PER NURSING PROTOCOL Performed By: #### L 501.080 ####[facility] [address] [place], [address] FINGERSTICK GLU 186 mg/dL High [address] [place] [address] Comment on above: Result Comment: BRISA GEMENT OF PATIENT CARE PER NURSING PROTOCOL Performed By: #### L 501.080 ####[facility] [address] [place], [address] Blood manual differential co mment interpretation (narrative result)Ordered By: Anurag Irene on 11-24-2024 Manual differential comment Marco Antonio (Bld) [Interp] SCANNED [facility] CBC W/Diff, Automatedon 11-03 PLT EST MOD DEC Normal ADEQ [facility] Comment on above: Performed By: #### L 500.4050, L100.0100 ####[facility] [address] [place], [address] SMEAR COMMENT SCANNED Normal [facility] Comment on above: Performed By: #### L 500.4050, L100.0100 ####[facility] [address] [place], [address] Comprehensive Metabolic Prof ilon 11-24-2024 Albumin [Mass/Vol] 2.7 g/dL Low 3.5-5.0 [facility] Comment on above: Performed By: #### L 500.4050, L100.0100 ####[facility] [address] [place], [address] Albumin/Globulin [Mass ratio] 1.2 {ratio} Normal 0.9-2.4 [facility] Comment on above: Performed By: #### L 500.4050, L100.0100 ####[facility] [address] [place], [address] ALK PHOS 176 U/L High 40-129 [facility] Comment on above: Performed By: #### L 500.4050, L100.0100 ####[facility] [address] [place], [address] ALT [Catalytic activity/Vol] 45 U/L Normal <=46 [facility] Comment on above: Performed By: #### L 500.4050, L100.0100 ####[facility] [address] [place], [address] AST [Catalytic activity/Vol] 72 U/L High <=37 [facility] Comment on above: Performed By: #### L 500.4050, L100.0100 ####[facility] [address] [place], [address] Bilirubin [Mass/Vol] 0.97 mg/dL Normal 0.00-1.30 [facility] Comment on above: Performed By: #### L 500.4050, L100.0100 ####[facility] [address] [place], [address] BUN/CRE 12.2 RATIO Normal 10-20 [facility] Comment on above: Performed By: #### L 500.4050, L100.0100 ####[facility] [address] [place], [address] Calcium [Mass/Vol] 8.4 mg/dL Normal 7.6-11.0 [facility] Comment on above: Performed By: #### L 500.4050, L100.0100 ####[facility] [address] [place], [address] Chloride [Moles/Vol] 107 mmol/L Normal 98-108 [facility] Comment on above: Performed By: #### L 500.4050, L100.0100 ####[facility] [address] [place], [address] CO2 [Moles/Vol] 18.9 mmol/L Low 21.0-32.0 [facility] Comment on above: Performed By: #### L 500.4050, L100.0100 ####[facility] [address] [place], [address] Creatinine [Mass/Vol] 0.86 mg/dL Normal 0.70-1.20 [facility] Comment on above: Performed By: #### L 500.4050, L100.0100 ####[facility] [address] [place], [address] ECRCL 110.58 ml/min Normal 50-250 [facility] Comment on above: Performed By: #### L 500.4050, L100.0100 ####[facility] [address] [place], [address] GAP 9 Normal 5-15 [facility] Comment on above: Performed By: #### L 500.4050, L100.0100 ####[facility] [address] [place], [address] GFR/1.73 sq M.predicted among non-blacks MDRD (S/P/Bld) [Vol rate/Area] 100 mL/min/{1.73_m2} Normal >60 [facility] Comment on above: Result Comment: mL/m in/1.73m2 CKD-EPI Creatinine Equation (2020) Performed By: #### L 500.4050, L100.0100 ####[facility] [address] [place], [address] Globulin (S) [Mass/Vol] 2.3 g/dL Normal 2.2-4.2 [facility] Comment on above: Performed By: #### L 500.4050, L100.0100 ####[facility] [address] [place], [address] Glucose [Mass/Vol] 198 mg/dL High 70-99 [facility] Comment on above: Performed By: #### L 500.4050, L100.0100 ####[facility] [address] [place], [address] Potassium [Moles/Vol] 4.1 mmol/L Normal 3.3-5.1 [facility] Comment on above: Performed By: #### L 500.4050, L100.0100 ####[facility] [address] [place], [address] Sodium [Moles/Vol] 135 mmol/L Normal 133-145 [facility] Comment on above: Performed By: #### L 500.4050, L100.0100 ####[facility] [address] [place], [address] T PROT 5.1 g/dL Low 5.9-8.4 [facility] Comment on above: Performed By: #### L 500.4050, L100.0100 ####[facility] [address] [place], [address] Urea nitrogen [Mass/Vol] 11 mg/dL Normal 4-19 [facility] Comment on above: Performed By: #### L 500.4050, L100.0100 ####[facility] [address] [place], [address] Platelet estimateOrdered By: Anurag Irene on 11-24-2024 Platelets LM Ql (Bld) MOD DEC ADEQ [facility] Prothrombin Time w/INRon INR Coag (PPP) [Relative time] 1.9 {INR} Normal [facility] Comment on above: Performed By: #### L 300.3900 ####[facility] [address] [place], [address] PT Coag (PPP) [Time] 22.6 s High 11.7-14.9 [facility] Comment on above: Performed By: #### L 300.3900 ####[facility] [address] [place], [address] Prothrombin timeOrdered By: Anurag Irene on 11-24-2024 PT Coag (PPP) [Time] 22.6 s High 11.7-14.9 [facility] Type AND Screenon 11-24-2024 Ab SCREEN GEL Negative Normal [facility] Comment on above: Order Comment: CMV N EG? NNumber of units to transfuse: 1Reason for Ordering Blood: AcuteAre the blood/blood products to be transfused? YIs the patient having/had surgery? NNWhen ReadyNYA Performed By: #### B RC, BTS ####[facility] [address] [place], [address] Bedside Glucoseon 11-23-2024 FINGERSTICK GLU 206 mg/dL High 74-106 [facility] Comment on above: Result Comment: BRISA GEMENT OF PATIENT CARE PER NURSING PROTOCOL Performed By: #### L 501.080 ####[facility] [address] [place], [address] FINGERSTICK GLU 213 mg/dL High 74-106 [facility] Comment on above: Result Comment: BRISA GEMENT OF PATIENT CARE PER NURSING PROTOCOL Performed By: #### L 501.080 ####[facility] [address] [place], [address] FINGERSTICK GLU 155 mg/dL High 74-106 [facility] Comment on above: Result Comment: BRISA GEMENT OF PATIENT CARE PER NURSING PROTOCOL Performed By: #### L 501.080 ####[facility] [address] [place], [address] FINGERSTICK GLU 182 mg/dL High 74-106 [facility] Comment on above: Result Comment: BRISA GEMENT OF PATIENT CARE PER NURSING PROTOCOL Performed By: #### L 501.080 ####[facility] [address] [place], [address] CBC W/Diff, Automatedon 11-03 PATH REV Reviewed Normal [facility] Comment on above: Result Comment: SEE REPORT IN PATIENT'S EMR AMENDED REPORT 11/23/24 1319 PATH REV previously reported as: December tai Performed By: #### L 500.4050, L100.0100, L501.2450 ####[facility] [address] [place], [address] HIP, UNI W/ Pelvis 2-3 Views on 11-23-2024 HIP, UNI W/ Pelvis 2-3 Views Normal [facility] Prothrombin Time w/INRon INR Coag (PPP) [Relative time] 2.1 {INR} Normal [facility] Comment on above: Performed By: #### L 300.3900 ####[facility] [address] [place], [address] PT Coag (PPP) [Time] 24.0 s High 11.7-14.9 [facility] Comment on above: Performed By: #### L 300.3900 ####[facility] [address] [place], [address] Urine Cultureon 11-23-2024 URC Normal [facility] Comment on above: Performed By: #### M 100.2200 ####[facility] [address] [place], [address] Bedside Glucoseon 11-22-2024 FINGERSTICK GLU 228 mg/dL High [address] [place] [address] Comment on above: Result Comment: BRISA GEMENT OF PATIENT CARE PER NURSING PROTOCOL Performed By: #### L 501.080 ####[facility] [address] [place], [address] FINGERSTICK GLU 187 mg/dL High [address] [place] [address] Comment on above: Result Comment: BRISA GEMENT OF PATIENT CARE PER NURSING PROTOCOL Performed By: #### L 501.080 ####[facility] [address] [place], [address] FINGERSTICK GLU 170 mg/dL High [address] [place] [address] Comment on above: Result Comment: BRISA GEMENT OF PATIENT CARE PER NURSING PROTOCOL Performed By: #### L 501.080 ####[facility] [address] [place], [address] FINGERSTICK GLU 163 mg/dL High [address] [place] [address] Comment on above: Result Comment: BRISA GEMENT OF PATIENT CARE PER NURSING PROTOCOL Performed By: #### L 501.080 ####[facility] [address] [place], [address] Bilirubin directOrdered By: Anurag Irene on 11-22-2024 Bilirubin.direct [Mass/Vol] 0.73 mg/dL High 0.00-0.30 [facility] Bilirubin, Directon 11-23-19 Bilirubin.direct [Mass/Vol] 0.73 mg/dL High 0.00-0.30 [facility] Comment on above: Performed By: #### L 501.4700, L500.4050 ####[facility] [address] [place], [address] Comprehensive Metabolic Prof ilon 11-22-2024 Albumin [Mass/Vol] 2.8 g/dL Low 3.5-5.0 [facility] Comment on above: Performed By: #### L 501.4700, L500.4050 ####[facility] [address] [place], [address] Albumin/Globulin [Mass ratio] 1.5 {ratio} Normal 0.9-2.4 [facility] Comment on above: Performed By: #### L 501.4700, L500.4050 ####[facility] [address] [place], [address] ALK PHOS 171 U/L High 40-129 [facility] Comment on above: Performed By: #### L 501.4700, L500.4050 ####[facility] [address] [place], [address] ALT [Catalytic activity/Vol] 41 U/L Normal <=46 [facility] Comment on above: Performed By: #### L 501.4700, L500.4050 ####[facility] [address] [place], [address] AST [Catalytic activity/Vol] 65 U/L High <=37 [facility] Comment on above: Performed By: #### L 501.4700, L500.4050 ####[facility] [address] [place], [address] Bilirubin [Mass/Vol] 1.09 mg/dL Normal 0.00-1.30 [facility] Comment on above: Performed By: #### L 501.4700, L500.4050 ####[facility] [address] [place], [address] BUN/CRE 20.3 RATIO High 10-20 [facility] Comment on above: Performed By: #### L 501.4700, L500.4050 ####[facility] [address] [place], [address] Calcium [Mass/Vol] 8.6 mg/dL Normal 7.6-11.0 [facility] Comment on above: Performed By: #### L 501.4700, L500.4050 ####[facility] [address] [place], [address] Chloride [Moles/Vol] 108 mmol/L Normal 98-108 [facility] Comment on above: Performed By: #### L 501.4700, L500.4050 ####[facility] [address] [place], [address] CO2 [Moles/Vol] 20.0 mmol/L Low 21.0-32.0 [facility] Comment on above: Performed By: #### L 501.4700, L500.4050 ####[facility] [address] [place], [address] Creatinine [Mass/Vol] 1.11 mg/dL Normal 0.70-1.20 [facility] Comment on above: Performed By: #### L 501.4700, L500.4050 ####[facility] [address] [place], [address] ECRCL 85.67 ml/min Normal 50-250 [facility] Comment on above: Performed By: #### L 501.4700, L500.4050 ####[facility] [address] [place], [address] GAP 9 Normal 5-15 [facility] Comment on above: Performed By: #### L 501.4700, L500.4050 ####[facility] [address] [place], [address] GFR/1.73 sq M.predicted among non-blacks MDRD (S/P/Bld) [Vol rate/Area] 77 mL/min/{1.73_m2} Normal >60 [facility] Comment on above: Result Comment: mL/m in/1.73m2 CKD-EPI Creatinine Equation (2020) Performed By: #### L 501.4700, L500.4050 ####[facility] [address] [place], [address] Globulin (S) [Mass/Vol] 1.9 g/dL Low 2.2-4.2 [facility] Comment on above: Performed By: #### L 501.4700, L500.4050 ####[facility] [address] [place], [address] Glucose [Mass/Vol] 158 mg/dL High 70-99 [facility] Comment on above: Performed By: #### L 501.4700, L500.4050 ####[facility] [address] [place], [address] Potassium [Moles/Vol] 4.1 mmol/L Normal 3.3-5.1 [facility] Comment on above: Performed By: #### L 501.4700, L500.4050 ####[facility] [address] [place], [address] Sodium [Moles/Vol] 136 mmol/L Normal 133-145 [facility] Comment on above: Performed By: #### L 501.4700, L500.4050 ####[facility] [address] [place], [address] T PROT 4.7 g/dL Low 5.9-8.4 [facility] Comment on above: Performed By: #### L 501.4700, L500.4050 ####[facility] [address] [place], [address] Urea nitrogen [Mass/Vol] 23 mg/dL High 4-19 [facility] Comment on above: Performed By: #### L 501.4700, L500.4050 ####[facility] [address] [place], [address] Prothrombin Time w/INRon INR Coag (PPP) [Relative time] 2.4 {INR} Normal [facility] Comment on above: Performed By: #### L 300.3900 ####[facility] [address] [place], [address] PT Coag (PPP) [Time] 26.8 s High 11.7-14.9 [facility] Comment on above: Performed By: #### L 300.3900 ####[facility] [address] [place], [address] ALP [Catalytic activity/Vol] Ordered By: Herberth Carlson on 11-21-2024 Serum or plasma alkaline phosphatase measurement 245 U/L High 40-129 [facility] ALT [Catalytic activity/Vol] Ordered By: Herberth Carlson on 11-21-2024 Serum or plasma alanine aminotransferase (ALT) measurement 61 U/L High <47 [facility] Absolute neutrophil countOrd ered By: Herberth Carlson on 11-21-2024 Absolute neutrophil count 6.5 X10^3/uL 2.0-7.7 [facility] Albumin [Mass/Vol]Ordered By : Herberth Carlson on 11-21-2024 Serum or plasma albumin measurement (mass/volume) 2.5 g/dL Low 3.5-5.0 [facility] Albumin/Globulin [Mass ratio ]Ordered By: Herberth Carlson on 11-21-2024 Serum or plasma albumin/globulin mass ratio 0.9 RATIO 0.9-2.4 [facility] Ammoniaon 04-20-2025 Ammonia (P) [Moles/Vol] 17.9 umol/L Normal 16-60 [facility] Comment on above: Result Comment: Hemo lysis present, Results??could be affected.?? Performed By: #### L 503.5510, L500.4050, L300.3900 ####[facility] [address] [place], [address] Anion gap [Moles/Vol]Ordered By: Herberth Carlson on 11-21-2024 Anion gap in Serum or Plasma 11 5-15 [facility] BUN/creatinine ratioOrdered By: Wilbur Aldo on 11-21-2024 BUN/creatinine ratio 19.1 RATIO 10-20 [facility] Bacteria LM.HPF (Urine sed) [#/Area]Ordered By: Herberthdominique Carlson on 11-21-2024 Urine sediment bacteria count by microscopy (number/high power field) RARE /hpf None Seen [facility] Basophil percentageOrdered B y: Herberth Carlson on 11-21-2024 Basophil percentage 0.2 % 0-1 [facility] Bedside Glucoseon 11-21-2024 FINGERSTICK GLU 171 mg/dL High 74-106 [facility] Comment on above: Result Comment: BRISA GEMENT OF PATIENT CARE PER NURSING PROTOCOL Performed By: #### L 501.080 ####[facility] [address] [place], [address] FINGERSTICK GLU 205 mg/dL High 74-106 [facility] Comment on above: Result Comment: BRISA GEMENT OF PATIENT CARE PER NURSING PROTOCOL Performed By: #### L 501.080 ####[facility] [address] [place], [address] FINGERSTICK GLU 215 mg/dL High 74-106 [facility] Comment on above: Result Comment: BRISA GEMENT OF PATIENT CARE PER NURSING PROTOCOL Performed By: #### L 501.080 ####[facility] [address] [place], [address] FINGERSTICK GLU 195 mg/dL High 74-106 [facility] Comment on above: Result Comment: BRISA MOROCHO OF PATIENT CARE PER NURSING PROTOCOL Performed By: #### L 501.080 ####[facility] [address] [place], [address] Bilirubin Test strip Ql (U)O rdered By: Herberth Carlson on 11-21-2024 Bilirubin Ql (U) Negative Negative [facility] Bilirubin, Directon 11-22-19 25 Bilirubin.direct [Mass/Vol] 0.85 mg/dL High 0.00-0.30 [facility] Comment on above: Performed By: #### L 501.4700 ####[facility] [address] [place], [address] Bilirubin, totalOrdered By: Herberth Carlson on 11-21-2024 Bilirubin, total 1.33 mg/dL High 0.00-1.30 [facility] CBC W/Diff, Automatedon 04- 0 Absolute Lymph 1.33 X10 3/uL Normal 0.83-4.51 [facility] Comment on above: Performed By: #### L 100.0100 ####[facility] [address] [place], [address] Absolute Neut 6.5 X10 3/uL Normal 2.0-7.7 [facility] Comment on above: Performed By: #### L 100.0100 ####[facility] [address] [place], [address] Basophils/100 WBC (Bld) 0.2 % Normal 0-1 [facility] Comment on above: Performed By: #### L 100.0100 ####[facility] [address] [place], [address] Eosinophils/100 WBC (Bld) 7.2 % High 0-5 [facility] Comment on above: Performed By: #### L 100.0100 ####[facility] [address] [place], [address] Erythrocyte distribution width (RBC) [Ratio] 16.8 % High 11.6-14.6 [facility] Comment on above: Performed By: #### L 100.0100 ####[facility] [address] [place], [address] Hematocrit (Bld) [Volume fraction] 24.6 % Low 40-54 [facility] Comment on above: Performed By: #### L 100.0100 ####[facility] [address] [place], [address] Hemoglobin (Bld) [Mass/Vol] 8.3 g/dL Low 13.0-16.5 [facility] Comment on above: Performed By: #### L 100.0100 ####[facility] [address] [place], [address] IG% 0.800 Normal 0.0-0.9 [facility] Comment on above: Result Comment: IG% - Immature Granulocytes (promyelocytes, myelocytes andmetamyelocytes) > 1% indicates that a LEFT SHIFT is Present. Performed By: #### L 100.0100 ####[facility] [address] [place], [address] Lymphocytes/100 WBC (Bld) 13.9 % Low 19-41 [facility] Comment on above: Performed By: #### L 100.0100 ####[facility] [address] [place], [address] MCH (RBC) [Entitic mass] 31.4 pg Normal 27.0-32.0 [facility] Comment on above: Performed By: #### L 100.0100 ####[facility] [address] [place], [address] MCHC (RBC) [Mass/Vol] 33.7 g/dL Normal 32-36 [facility] Comment on above: Performed By: #### L 100.0100 ####[facility] [address] [place], [address] MCV (RBC) [Entitic vol] 93.2 fL Normal 80-94 [facility] Comment on above: Performed By: #### L 100.0100 ####[facility] [address] [place], [address] Monocytes/100 WBC (Bld) 9.2 % Normal 0-10 [facility] Comment on above: Performed By: #### L 100.0100 ####[facility] [address] [place], [address] Neutrophils/100 WBC (Bld) 68.7 % Normal 47-70 [facility] Comment on above: Performed By: #### L 100.0100 ####[facility] [address] [place], [address] Nucleated RBC (Bld) [#/Vol] 0 10*3/uL Normal 0-5 [facility] Comment on above: Performed By: #### L 100.0100 ####[facility] [address] [place], [address] Platelet mean volume (Bld) [Entitic vol] 11.6 fL Normal 6.2-12.0 [facility] Comment on above: Performed By: #### L 100.0100 ####[facility] [address] [place], [address] Platelets (Bld) [#/Vol] 167 10*3/uL Normal 150-450 [facility] Comment on above: Performed By: #### L 100.0100 ####[facility] [address] [place], [address] RBC (Bld) [#/Vol] 2.64 10*6/uL Low 4.6-6.2 [facility] Comment on above: Performed By: #### L 100.0100 ####[facility] [address] [place], [address] RDW SD 57.1 fl High 35.1-43.9 [facility] Comment on above: Performed By: #### L 100.0100 ####[facility] [address] [place], [address] WBC (Bld) [#/Vol] 9.5 10*3/uL Normal 4.4-11.0 [facility] Comment on above: Performed By: #### L 100.0100 ####[facility] [address] [place], [address] CBC-Complete Blood Cnt No Di ffon 11-21-2024 Erythrocyte distribution width (RBC) [Ratio] 16.4 % High 11.6-14.6 [facility] Comment on above: Performed By: #### L 100.0500, L500.4050 ####[facility] [address] [place], [address] Hematocrit (Bld) [Volume fraction] 25.0 % Low 40-54 [facility] Comment on above: Performed By: #### L 100.0500, L500.4050 ####[facility] [address] [place], [address] Hemoglobin (Bld) [Mass/Vol] 8.5 g/dL Low 13.0-16.5 [facility] Comment on above: Performed By: #### L 100.0500, L500.4050 ####[facility] [address] [place], [address] MCH (RBC) [Entitic mass] 31.1 pg Normal 27.0-32.0 [facility] Comment on above: Performed By: #### L 100.0500, L500.4050 ####[facility] [address] [place], [address] MCHC (RBC) [Mass/Vol] 34.0 g/dL Normal 32-36 [facility] Comment on above: Performed By: #### L 100.0500, L500.4050 ####[facility] [address] [place], [address] MCV (RBC) [Entitic vol] 91.6 fL Normal 80-94 [facility] Comment on above: Performed By: #### L 100.0500, L500.4050 ####[facility] [address] [place], [address] Platelet mean volume (Bld) [Entitic vol] 11.7 fL Normal 6.2-12.0 [facility] Comment on above: Performed By: #### L 100.0500, L500.4050 ####[facility] [address] [place], [address] Platelets (Bld) [#/Vol] 119 10*3/uL Low 150-450 [facility] Comment on above: Performed By: #### L 100.0500, L500.4050 ####[facility] [address] [place], [address] RBC (Bld) [#/Vol] 2.73 10*6/uL Low 4.6-6.2 [facility] Comment on above: Performed By: #### L 100.0500, L500.4050 ####[facility] [address] [place], [address] RDW SD 54.6 fl High 35.1-43.9 [facility] Comment on above: Performed By: #### L 100.0500, L500.4050 ####[facility] [address] [place], [address] WBC (Bld) [#/Vol] 7.3 10*3/uL Normal 4.4-11.0 [facility] Comment on above: Performed By: #### L 100.0500, L500.4050 ####[facility] [address] [place], [address] Erythrocyte distribution width (RBC) [Ratio] 16.5 % High 11.6-14.6 [facility] Comment on above: Performed By: #### L 100.0500 ####[facility] [address] [place], [address] Hematocrit (Bld) [Volume fraction] 25.1 % Low 40-54 [facility] Comment on above: Performed By: #### L 100.0500 ####[facility] [address] [place], [address] Hemoglobin (Bld) [Mass/Vol] 8.3 g/dL Low 13.0-16.5 [facility] Comment on above: Performed By: #### L 100.0500 ####[facility] [address] [place], [address] MCH (RBC) [Entitic mass] 31.1 pg Normal 27.0-32.0 [facility] Comment on above: Performed By: #### L 100.0500 ####[facility] [address] [place], [address] MCHC (RBC) [Mass/Vol] 33.1 g/dL Normal 32-36 [facility] Comment on above: Performed By: #### L 100.0500 ####[facility] [address] [place], [address] MCV (RBC) [Entitic vol] 94.0 fL Normal 80-94 [facility] Comment on above: Performed By: #### L 100.0500 ####[facility] [address] [place], [address] Platelet mean volume (Bld) [Entitic vol] 11.4 fL Normal 6.2-12.0 [facility] Comment on above: Performed By: #### L 100.0500 ####[facility] [address] [place], [address] Platelets (Bld) [#/Vol] 103 10*3/uL Low 150-450 [facility] Comment on above: Performed By: #### L 100.0500 ####[facility] [address] [place], [address] RBC (Bld) [#/Vol] 2.67 10*6/uL Low 4.6-6.2 [facility] Comment on above: Performed By: #### L 100.0500 ####[facility] [address] [place], [address] RDW SD 57.1 fl High 35.1-43.9 [facility] Comment on above: Performed By: #### L 100.0500 ####[facility] [address] [place], [address] WBC (Bld) [#/Vol] 7.1 10*3/uL Normal 4.4-11.0 [facility] Comment on above: Performed By: #### L 100.0500 ####[facility] [address] [place], [address] Calcium [Mass/Vol]Ordered By : Herberth Carlson on 11-21-2024 Serum or plasma calcium measurement (mass/volume) 8.7 mg/dL 7.6-11.0 [facility] Carbon dioxide, total [Moles /volume] in Central venous bloodOrdered By: Herberth Carlson on 11-21-2024 Carbon dioxide, total [Moles/volume] in Central venous blood 17.5 mmol/L Low 21.0-32.0 [facility] Chest 1 View (Portable)on Chest 1 View (Portable) Normal [facility] Chloride assayOrdered By: Kaylyn Carlson on 11-21-2024 Chloride assay 103 mmol/L 98-108 [facility] Clarity (U)Ordered By: Ashish Carlson on 11-21-2024 Urine clarity Sl Cldy Clear [facility] Color (U)Ordered By: Herberth Carlson on 11-21-2024 Urine color determination Yellow Yellow [facility] Comprehensive Metabolic Prof ilon 11-21-2024 Albumin [Mass/Vol] 2.8 g/dL Low 3.5-5.0 [facility] Comment on above: Performed By: #### L 100.0500, L500.4050 ####[facility] [address] [place], [address] Albumin/Globulin [Mass ratio] 1.1 {ratio} Normal 0.9-2.4 [facility] Comment on above: Performed By: #### L 100.0500, L500.4050 ####[facility] [address] [place], [address] ALK PHOS 244 U/L High 40-129 [facility] Comment on above: Performed By: #### L 100.0500, L500.4050 ####[facility] [address] [place], [address] ALT [Catalytic activity/Vol] 58 U/L High <=46 [facility] Comment on above: Performed By: #### L 100.0500, L500.4050 ####[facility] [address] [place], [address] AST [Catalytic activity/Vol] 91 U/L High <=37 [facility] Comment on above: Performed By: #### L 100.0500, L500.4050 ####[facility] [address] [place], [address] Bilirubin [Mass/Vol] 1.35 mg/dL High 0.00-1.30 [facility] Comment on above: Performed By: #### L 100.0500, L500.4050 ####[facility] [address] [place], [address] BUN/CRE 21.3 RATIO High 10-20 [facility] Comment on above: Performed By: #### L 100.0500, L500.4050 ####[facility] [address] [place], [address] Calcium [Mass/Vol] 8.9 mg/dL Normal 7.6-11.0 [facility] Comment on above: Performed By: #### L 100.0500, L500.4050 ####[facility] [address] [place], [address] Chloride [Moles/Vol] 103 mmol/L Normal 98-108 [facility] Comment on above: Performed By: #### L 100.0500, L500.4050 ####[facility] [address] [place], [address] CO2 [Moles/Vol] 21.6 mmol/L Normal 21.0-32.0 [facility] Comment on above: Performed By: #### L 100.0500, L500.4050 ####[facility] [address] [place], [address] Creatinine [Mass/Vol] 1.32 mg/dL High 0.70-1.20 [facility] Comment on above: Performed By: #### L 100.0500, L500.4050 ####[facility] [address] [place], [address] ECRCL 72.04 ml/min Normal 50-250 [facility] Comment on above: Performed By: #### L 100.0500, L500.4050 ####[facility] [address] [place], [address] GAP 10 Normal 5-15 [facility] Comment on above: Performed By: #### L 100.0500, L500.4050 ####[facility] [address] [place], [address] GFR/1.73 sq M.predicted among non-blacks MDRD (S/P/Bld) [Vol rate/Area] 63 mL/min/{1.73_m2} Normal >60 [facility] Comment on above: Result Comment: mL/m in/1.73m2 CKD-EPI Creatinine Equation (2020) Performed By: #### L 100.0500, L500.4050 ####[facility] [address] [place], [address] Globulin (S) [Mass/Vol] 2.6 g/dL Normal 2.2-4.2 [facility] Comment on above: Performed By: #### L 100.0500, L500.4050 ####[facility] [address] [place], [address] Glucose [Mass/Vol] 218 mg/dL High 70-99 [facility] Comment on above: Performed By: #### L 100.0500, L500.4050 ####[facility] [address] [place], [address] Potassium [Moles/Vol] 4.0 mmol/L Normal 3.3-5.1 [facility] Comment on above: Performed By: #### L 100.0500, L500.4050 ####[facility] [address] [place], [address] Sodium [Moles/Vol] 134 mmol/L Normal 133-145 [facility] Comment on above: Performed By: #### L 100.0500, L500.4050 ####[facility] [address] [place], [address] T PROT 5.4 g/dL Low 5.9-8.4 [facility] Comment on above: Performed By: #### L 100.0500, L500.4050 ####[facility] [address] [place], [address] Urea nitrogen [Mass/Vol] 28 mg/dL High 4-19 [facility] Comment on above: Performed By: #### L 100.0500, L500.4050 ####[facility] [address] [place], [address] Albumin [Mass/Vol] 2.5 g/dL Low 3.5-5.0 [facility] Comment on above: Performed By: #### L 503.5510, L500.4050, L300.3900 ####[facility] [address] [place], [address] Albumin/Globulin [Mass ratio] 0.9 {ratio} Normal 0.9-2.4 [facility] Comment on above: Performed By: #### L 503.5510, L500.4050, L300.3900 ####[facility] [address] [place], [address] ALK PHOS 245 U/L High 40-129 [facility] Comment on above: Performed By: #### L 503.5510, L500.4050, L300.3900 ####[facility] [address] [place], [address] ALT [Catalytic activity/Vol] 61 U/L High <=46 [facility] Comment on above: Performed By: #### L 503.5510, L500.4050, L300.3900 ####[facility] [address] [place], [address] AST [Catalytic activity/Vol] 112 U/L High <=37 [facility] Comment on above: Result Comment: Hemo lysis present, Results??could be affected.?? Performed By: #### L 503.5510, L500.4050, L300.3900 ####[facility] [address] [place], [address] Bilirubin [Mass/Vol] 1.33 mg/dL High 0.00-1.30 [facility] Comment on above: Performed By: #### L 503.5510, L500.4050, L300.3900 ####[facility] [address] [place], [address] BUN/CRE 19.1 RATIO Normal 10-20 [facility] Comment on above: Performed By: #### L 503.5510, L500.4050, L300.3900 ####[facility] [address] [place], [address] Calcium [Mass/Vol] 8.7 mg/dL Normal 7.6-11.0 [facility] Comment on above: Performed By: #### L 503.5510, L500.4050, L300.3900 ####[facility] [address] [place], [address] Chloride [Moles/Vol] 103 mmol/L Normal 98-108 [facility] Comment on above: Performed By: #### L 503.5510, L500.4050, L300.3900 ####[facility] [address] [place], [address] CO2 [Moles/Vol] 17.5 mmol/L Low 21.0-32.0 [facility] Comment on above: Performed By: #### L 503.5510, L500.4050, L300.3900 ####[facility] [address] [place], [address] Creatinine [Mass/Vol] 1.49 mg/dL High 0.70-1.20 [facility] Comment on above: Performed By: #### L 503.5510, L500.4050, L300.3900 ####[facility] [address] [place], [address] ECRCL 64.65 ml/min Normal 50-250 [facility] Comment on above: Performed By: #### L 503.5510, L500.4050, L300.3900 ####[facility] [address] [place], [address] GAP 11 Normal 5-15 [facility] Comment on above: Performed By: #### L 503.5510, L500.4050, L300.3900 ####[facility] [address] [place], [address] GFR/1.73 sq M.predicted among non-blacks MDRD (S/P/Bld) [Vol rate/Area] 54 mL/min/{1.73_m2} Low >60 [facility] Comment on above: Result Comment: mL/m in/1.73m2 CKD-EPI Creatinine Equation (2020) Performed By: #### L 503.5510, L500.4050, L300.3900 ####[facility] [address] [place], [address] Globulin (S) [Mass/Vol] 2.7 g/dL Normal 2.2-4.2 [facility] Comment on above: Performed By: #### L 503.5510, L500.4050, L300.3900 ####[facility] [address] [place], [address] Glucose [Mass/Vol] 188 mg/dL High 70-99 [facility] Comment on above: Performed By: #### L 503.5510, L500.4050, L300.3900 ####[facility] [address] [place], [address] Potassium [Moles/Vol] 5.0 mmol/L Normal 3.3-5.1 [facility] Comment on above: Result Comment: Hemo lysis present, Results??could be affected.?? Performed By: #### L 503.5510, L500.4050, L300.3900 ####[facility] [address] [place], [address] Sodium [Moles/Vol] 132 mmol/L Low 133-145 [facility] Comment on above: Performed By: #### L 503.5510, L500.4050, L300.3900 ####[facility] [address] [place], [address] T PROT 5.2 g/dL Low 5.9-8.4 [facility] Comment on above: Performed By: #### L 503.5510, L500.4050, L300.3900 ####[facility] [address] [place], [address] Urea nitrogen [Mass/Vol] 28 mg/dL High 4-19 [facility] Comment on above: Performed By: #### L 503.5510, L500.4050, L300.3900 ####[facility] [address] [place], [address] Creatinine [Mass/Vol]Ordered By: Herberth Carlson on 11-21-2024 Serum creatinine measurement (mass/volume) 1.49 mg/dL High 0.70-1.20 [facility] Emergency Department Summary on 11-21-2024 Emergency Department Summary Normal [facility] Eosinophil percentageOrdered By: Herberth Carlson on 11-21-2024 Eosinophil percentage 7.2 % High 0-5 [facility] Erythrocyte distribution wid th (RBC) [Ratio]Ordered By: Herberth Carlson on 11-21-2024 Erythrocyte distribution width ratio 16.8 % High 11.6-14.6 [facility] Erythrocyte distribution width standard deviation 57.1 fl High 35.1-43.9 [facility] Estimation of creatinine [place] aranceOrdered By: Herberth Carlson on 11-21-2024 Estimation of creatinine clearance 64.65 ml/min 50-250 [facility] GFR/1.73 sq M.predicted niki g non-blacks MDRD (S/P/Bld) [Vol rate/Area]Ordered By: Herberth Carlson on 11-21-2024 Glomerular filtration rate (GFR) estimation/1.73 sq m using serum, plasma, or whole b 54 Low >60 [facility] Glucose [Mass/Vol]Ordered By : Herberth Carlson on 11-21-2024 Serum glucose measurement (mass/volume) 188 mg/dL High 70-99 [facility] H AND P Exam - [facility] 11-21-2024 H&P Exam - Hospitalist Normal [facility] Hematocrit Auto (Bld) [Volum e fraction]Ordered By: Herberth Carlson on 11-21-2024 Automated blood hematocrit (percentage) 24.6 % Low 40-54 [facility] Hemoglobin measurementOrdere d By: Herberth Carlson on 11-21-2024 Hemoglobin measurement 8.3 g/dL Low 13.0-16.5 [facility] Immature granulocytes/100 WB C Auto (Bld)Ordered By: Herberth Carlson on 11-21-2024 Automated immature granulocyte percentage 0.800 % 0.0-0.9 [facility] [facility] normalized rat io (INR) calculationOrdered By: Herberth Carlson on 11-21-2024 International normalized ratio (INR) calculation 2.6 [facility] Ketones Test strip Ql (U)Ord ered By: Herberth Carlson on 11-21-2024 Ketones Ql (U) Negative Negative [facility] Lactic Acidon 11-21-2024 Lactate [Moles/Vol] 1.7 mmol/L Normal 0.0-2.0 [facility] Comment on above: Performed By: #### L 372.6009 ####[facility] [address] [place], [address] Lactate [Moles/Vol] 2.2 mmol/L Invalid Interpretation Code 0.0-2.0 [facility] Comment on above: Order Comment: Y Result Comment: Crit ical Result(s) Called at: 0630 by:??NOREEN LEÓN Results read back by same. Performed By: #### L 680.6003 ####[facility] [address] [place], [place], [id number] Lactate [Moles/Vol] 2.7 mmol/L Invalid Interpretation Code 0.0-2.0 [facility] Comment on above: Order Comment: Y Result Comment: Crit ical Result(s) Called at: 0320 by: NOREEN DOMINGUEZ??Results read back by same. Performed By: #### L 503.6005 ####[facility] [address] [place], [place], [address] Lactic acid measurementOrder ed By: Herberth Carlson on 11-21-2024 Lactic acid measurement 2.7 mmol/L High 0.0-2.0 [facility] Leukocyte esterase Test stri p Ql (U)Ordered By: Herberth Carlson on 11-21-2024 Urine leukocyte esterase detection by dipstick 500 /ul High Negative [facility] Lymphocytes Auto (Unsp spec) [#/Vol]Ordered By: Herberth Carlson on 11-21-2024 Absolute lymphocyte count 1.33 X10^3/uL 0.83-4.51 [facility] Lymphocytes/100 WBC Auto (Un sp spec)Ordered By: Herberth Carlson on 11-21-2024 Automated lymphocyte count as percentage of total leukocytes 13.9 % Low 19-41 [facility] MCV (RBC) [Entitic vol]Order ed By: Herberth Carlson on 11-21-2024 MCV (mean corpuscular volume) determination 93.2 fL 80-94 [facility] Mean corpuscular hemoglobin (MCH) determinationOrdered By: Herberth Carlson on 11-21-2024 Mean corpuscular hemoglobin (MCH) determination 31.4 pg 27.0-32.0 [facility] Mean corpuscular hemoglobin concentration (MCHC) determinationOrdered By: Herberth Carlson on 11-21-2024 Mean corpuscular hemoglobin concentration (MCHC) determination 33.7 g/dL 32-36 [facility] Mean platelet volume determi nationOrdered By: Herberth Carlson on 11-21-2024 Mean platelet volume determination 11.6 fl 6.2-12.0 [facility] Monocyte percentageOrdered B y: Herberth Carlson on 11-21-2024 Monocyte percentage 9.2 % 0-10 [facility] Mucus LM Ql (Urine sed)Order ed By: Herberth Carlson on 11-21-2024 Mucus Ql (Urine sed) 0 SEEN /hpf [facility] Neutrophil percentageOrdered By: Herberth Carlson on 11-21-2024 Neutrophil percentage 68.7 % 47-70 [facility] Nitrite Test strip Ql (U)Ord ered By: Herberth Carlson on 11-21-2024 Nitrite Ql (U) Negative Negative [facility] No Panel InformationOrdered By: Herberth Carlson on 11-21-2024 112 U/L High <38 [facility] Nucleated red blood cell per centageOrdered By: Herberth Carlson on 11-21-2024 Nucleated red blood cell percentage 0 % 0-5 [facility] Platelet countOrdered By: Kaylyn Carlson on 11-21-2024 Platelet count 167 K/mm3 150-450 [facility] Potassium (Unsp spec) [Mass/ Vol]Ordered By: Herberth Carlson on 11-21-2024 Potassium measurement (mass/volume) 5.0 mmol/L 3.3-5.1 [facility] Protein Test strip Ql (U)Ord ered By: Herberth Carlson on 11-21-2024 Protein Ql (U) 500 mg/dl High Negative [facility] Urine protein assay by test strip, semi-quantitative 500 mg/dl High Negative [facility] Prothrombin Time w/INRon INR Coag (PPP) [Relative time] 2.6 {INR} Normal [facility] Comment on above: Performed By: #### L 5035510, L500.4050, L300.3900 ####[facility] [address] [place], [address] PT Coag (PPP) [Time] 28.2 s High 11.7-14.9 [facility] Comment on above: Performed By: #### L 503.5510, L500.4050, L300.3900 ####[facility] [address] [place], [place], [id number] Prothrombin timeOrdered By: Herberth Carlson on 11-21-2024 Prothrombin time 28.2 SECONDS High 11.7-14.9 [facility] RBC Auto (Bld) [#/Vol]Ordere d By: Herberth Carlson on 11-21-2024 Automated blood erythrocyte count 2.64 M/mm3 Low 4.6-6.2 [facility] Serum globulin measurementOr dered By: Herberth Carlson on 11-21-2024 Serum globulin measurement 2.7 g/dL 2.2-4.2 [facility] Sodium levelOrdered By: Norman Carlson on 11-21-2024 Sodium level 132 mmol/L Low 133-145 [facility] Specific gravity (U) [Rel de nsity]Ordered By: Herberth Carlson on 11-21-2024 Urine specific gravity measurement 1.015 1.002-1.030 [facility] Squamous epithelial cells de tection in urine sediment by light microscopyOrdered By: Herberth Carlson on 11-21-2024 Epithelial cells.squamous LM Ql (Urine sed) 0 SEEN /hpf 0-5 [facility] Squamous epithelial cells detection in urine sediment by light microscopy 0 SEEN /hpf [facility] Total proteinOrdered By: Digna Carlson on 11-21-2024 Total protein 5.2 g/dL Low 5.9-8.4 [facility] Urea nitrogen [Mass/Vol]Orde red By: Herberth Carlson on 11-21-2024 Serum or plasma urea nitrogen measurement (mass/volume) 28 mg/dL High 4-19 [facility] Urinalysis, Completeon 11-21 BACTERIA RARE Normal None Seen [facility] Comment on above: Order Comment: COLOR OF URINE MAY AFFECT DIPSTICK RESULTS.SENIOR PRODUCT INTEGRITY ENGINEER TO SPECIFY Performed By: #### L 400.0001 ####[facility] [address] [place], [place], [id number] Clarity (U) Sl Cldy Normal Clear [facility] Comment on above: Order Comment: COLOR OF URINE MAY AFFECT DIPSTICK RESULTS.SENIOR PRODUCT INTEGRITY ENGINEER TO SPECIFY Performed By: #### L 400.0001 ####[facility] [address] [place], [address] RBC > 100 SEEN Normal 0-5 [facility] Comment on above: Order Comment: COLOR OF URINE MAY AFFECT DIPSTICK RESULTS.SENIOR PRODUCT INTEGRITY ENGINEER TO SPECIFY Result Comment: Micr oscopic field is filled. Other elements may beobscured. Performed By: #### L 400.0001 ####[facility] [address] [place], [address] WBC >100 SEEN Normal 0-5 [facility] Comment on above: Order Comment: COLOR OF URINE MAY AFFECT DIPSTICK RESULTS.SENIOR PRODUCT INTEGRITY ENGINEER TO SPECIFY Result Comment: Micr oscopic field is filled. Other elements may beobscured. Performed By: #### L 400.0001 ####[facility] [address] [place], [address] Color (U) Yellow Normal Yellow [facility] Comment on above: Order Comment: COLOR OF URINE MAY AFFECT DIPSTICK RESULTS.SENIOR PRODUCT INTEGRITY ENGINEER TO SPECIFY Result Comment: SPUN URINE SPECIMEN BEFORE URINE CHEMSTRIP WAS DIPPED DUE TOEXTREME HEMATURIA. Performed By: #### L 400.0001 ####[facility] [address] [place], [address] BILIRUBIN URINE Negative Normal Negative [facility] Comment on above: Order Comment: COLOR OF URINE MAY AFFECT DIPSTICK RESULTS.SENIOR PRODUCT INTEGRITY ENGINEER TO SPECIFY Performed By: #### L 400.0001 ####[facility] [address] [place], [address] GLUCOSE, UR Normal Normal Normal [facility] Comment on above: Order Comment: COLOR OF URINE MAY AFFECT DIPSTICK RESULTS.SENIOR PRODUCT INTEGRITY ENGINEER TO SPECIFY Performed By: #### L 400.0001 ####[facility] [address] [place], [address] KETONE UR Negative Normal Negative [facility] Comment on above: Order Comment: COLOR OF URINE MAY AFFECT DIPSTICK RESULTS.SENIOR PRODUCT INTEGRITY ENGINEER TO SPECIFY Performed By: #### L 400.0001 ####[facility] [address] [place], [address] LEUK ESTERASE 500 /ul Abnormal Negative [facility] Comment on above: Order Comment: COLOR OF URINE MAY AFFECT DIPSTICK RESULTS.SENIOR PRODUCT INTEGRITY ENGINEER TO SPECIFY Performed By: #### L 400.0001 ####[facility] [address] [place], [address] Nitrite Ql (U) Negative Normal Negative [facility] Comment on above: Order Comment: COLOR OF URINE MAY AFFECT DIPSTICK RESULTS.SENIOR PRODUCT INTEGRITY ENGINEER TO SPECIFY Performed By: #### L 400.0001 ####[facility] [address] [place], [address] OCCULT BLOOD-UR 250 /ul Abnormal Negative [facility] Comment on above: Order Comment: COLOR OF URINE MAY AFFECT DIPSTICK RESULTS.SENIOR PRODUCT INTEGRITY ENGINEER TO SPECIFY Performed By: #### L 400.0001 ####[facility] [address] [place], [address] pH UR 6.0 Normal 5.0 - 8.0 [facility] Comment on above: Order Comment: COLOR OF URINE MAY AFFECT DIPSTICK RESULTS.SENIOR PRODUCT INTEGRITY ENGINEER TO SPECIFY Performed By: #### L 400.0001 ####[facility] [address] [place], [address] PROT DIPSTX 500 mg/dl Abnormal Negative [facility] Comment on above: Order Comment: COLOR OF URINE MAY AFFECT DIPSTICK RESULTS.SENIOR PRODUCT INTEGRITY ENGINEER TO SPECIFY Performed By: #### L 400.0001 ####[facility] [address] [place], [address] SP.GR. DIPSTX 1.015 Normal 1.002-1.030 [facility] Comment on above: Order Comment: COLOR OF URINE MAY AFFECT DIPSTICK RESULTS.SENIOR PRODUCT INTEGRITY ENGINEER TO SPECIFY Performed By: #### L 400.0001 ####[facility] [address] [place], [address] UROBILI Normal Normal Normal [facility] Comment on above: Order Comment: COLOR OF URINE MAY AFFECT DIPSTICK RESULTS.SENIOR PRODUCT INTEGRITY ENGINEER TO SPECIFY Performed By: #### L 400.0001 ####[facility] [address] [place], [address] EPI,SQUAMOUS 0 SEEN Normal 0-5 [facility] Comment on above: Order Comment: COLOR OF URINE MAY AFFECT DIPSTICK RESULTS.SENIOR PRODUCT INTEGRITY ENGINEER TO SPECIFY Performed By: #### L 400.0001 ####[facility] [address] [place], [address] Mucus Ql (Urine sed) 0 SEEN Normal [facility] Comment on above: Order Comment: COLOR OF URINE MAY AFFECT DIPSTICK RESULTS.SENIOR PRODUCT INTEGRITY ENGINEER TO SPECIFY Performed By: #### L 400.0001 ####[facility] [address] 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 Abnormal [facility] Bacteria identified Cx Nom (U) GPC Poss Enterococcus sp Abnormal [facility] Bacteria identified Cx Nom (U) Positive Abnormal [facility] Urine glucose detectionOrder ed By: Herberth Carlson on 11-21-2024 Glucose Ql (U) Normal mg/dl Normal [facility] Urine glucose detection Normal mg/dl Normal [facility] Urine leukocyte esterase det ection by dipstickOrdered By: Herberth Carlson on 11-21-2024 Leukocyte esterase Test strip Ql (U) 500 /ul High Negative [facility] Urine pHOrdered By: Herberth Carlson on 11-21-2024 pH (U) 6.0 [pH] 5.0 - 8.0 [facility] Urine sediment bacteria coun t by microscopy (number/high power field)Ordered By: Herberth Carlson on 11-21-2024 Bacteria LM.HPF (Urine sed) [#/Area] RARE /hpf None Seen [facility] Urine specific gravity measu rementOrdered By: Herberth Carlson on 11-21-2024 Specific gravity (U) [Rel density] 1.015 1.002-1.030 [facility] Urine total bilirubin detect ion by test stripOrdered By: Herberth Carlson on 11-21-2024 Urine total bilirubin detection by test strip Negative Negative [facility] Urine urobilinogen measureme ntOrdered By: Herberth Carlson on 11-21-2024 Urobilinogen Ql (U) Normal mg/dl Normal [facility] Venous blood ammonia measure mentOrdered By: Herberth Carlson on 11-21-2024 Ammonia (P) [Moles/Vol] 17.9 umol/L [facility] Venous blood ammonia measurement 17.9 umol/L [facility] White blood cell (WBC) count Ordered By: Herberth Carlson on 11-21-2024 White blood cell (WBC) count 9.5 K/mm3 4.4-11.0 [facility] White blood cell countOrdere d By: Herberth Carlson on 11-21-2024 White blood cell count >100 SEEN /hpf 0-5 [facility] White blood cell count >100 SEEN /hpf 0-5 [facility] pH (U)Ordered By: Herberth henao on 11-21-2024 Urine pH 6.0 5.0 - 8.0 [facility] Bacteria Ur Culton Bacteria identified Cx Nom (U) CULTURE, URINE: Mixed microbiota, including predominantly: ORGANISM ID: 1 >=100,000 CFU/ml Mary glabrata No susceptibility testing done. Normal [facility] Comment on above: Performed By: #### 6 30-4 ####[facility] LABCLIA [id number] [place] [address] [place] Bacteria identified Cx Nom (U) Normal [facility] Comment on above: Performed By: #### 2 4356-8, 630-4 ####[facility] LABCLIA [id number] [address] [address] [place] Basic metabolic 2000 panelon 11-18-2024 Anion gap [Moles/Vol] 8 mmol/L Normal 8-15 [facility] Comment on above: Order Comment: Speci men Type: BLOOD SPECIMENOrdering Facility: [facility] Address: [address] [place] [address] Performed By: #### 2 4321-2, 38315-3, 2776- ####[facility] LABCLIA [id number] [address] [address] [place] Calcium [Mass/Vol] 8.3 mg/dL Low 8.5-10.2 [facility] Comment on above: Order Comment: Speci men Type: BLOOD SPECIMENOrdering Facility: [facility] Address: [address] [place] [address] Performed By: #### 2 4321-2, 54514-8, 2776- ####[facility] LABCLIA [id number] [place] [id number] [place] Chloride [Moles/Vol] 102 mmol/L Normal 98-107 [facility] Comment on above: Order Comment: Speci men Type: BLOOD SPECIMENOrdering Facility: [facility] Address: [address] [place], [place] [address] Performed By: #### 2 4321-2, 67857-0, 2776- ####[facility] LABCLIA [id number] [address] [address] [place] CO2 [Moles/Vol] 19 mmol/L Low 22-30 [facility] Comment on above: Order Comment: Speci men Type: BLOOD SPECIMENOrdering Facility: [facility] Address: [address] [place], [place] [address] Performed By: #### 2 4321-2, 35295-3, 277-1 ####[facility] LABCLIA [id number] [address] [address] [place] Creatinine [Mass/Vol] 0.95 mg/dL Normal 0.73-1.22 [facility] Comment on above: Order Comment: Ezekiel ramirez Type: BLOOD SPECIMENOrdering Facility: [facility] Address: [address] [place] [address] Performed By: #### 2 4321-2, 38080-0, 2777-1 ####[facility] LABIA [id number] [place] [id number] [facility] Creatinine and Glomerular filtration rate.predicted panel (S/P/Bld) 93 mL/min/1.73m??? Normal >=60 [facility] Comment on above: Order Comment: Ezekiel ramirez Type: BLOOD SPECIMENOrdering Facility: [facility] Address: [address] [place] [address] Result Comment: Patric mated Glomerular Filtration Rate (eGFR) is calculated using the 2020 CKD-EPI creatinine equation. This equation utilizes serum creatinine, sex, and age as parameters. The creatinine assay has traceable calibration to isotope dilution-mass spectrometry. Refer to KDIGO guidelines for clinical interpretation. In patients with unstable renal function, e.g. those with acute kidney injury, the eGFR may not accurately reflect actual GFR. Performed By: #### 2 4321-2, 45834-4, 277- ####[facility] LABIA [id number] [place] [id number] [place] Glucose [Mass/Vol] 248 mg/dL High 74-99 [facility] Comment on above: Order Comment: Ezekiel ramirez Type: BLOOD SPECIMENOrdering Facility: [facility] Address: [address] [place] [address] Result Comment: The [place] Diabetes Association (ADA) provides guidance for cutoff values for fasting glucose and random glucose. The ADA defines fasting as no caloric intake for at least 8 hours. Fasting plasma glucose results between 100 to 125 mg/dL indicate increased risk for diabetes (prediabetes).Fasting plasma glucose results greater than or equal to 126 mg/dL meet the criteria for diagnosis of diabetes. In the absence of unequivocal hyperglycemia, results should be confirmed by repeat testing. In a patient with classic symptoms of hyperglycemia or hyperglycemic crisis, random plasma glucose results greater than or equal to 200 mg/dL meet the criteria for diagnosis of diabetes.Reference: Standards of Medical Care in Diabetes 2016, [place] Diabetes Association. Diabetes Care. 2016.39(Suppl 1). Performed By: #### 2 4321-2, 53046-8, 2776- ####[facility] LABCLIA [id number] [address] [address] [place] Potassium [Moles/Vol] 4.4 mmol/L Normal 3.7-5.1 [facility] Comment on above: Order Comment: Speci men Type: BLOOD SPECIMENOrdering Facility: [facility] Address: [address] [place] [address] Performed By: #### 2 4321-2, 59945-3, 2776- ####[facility] LABCLIA [id number] [place] [id number] [place] Sodium [Moles/Vol] 129 mmol/L Low 136-144 [facility] Comment on above: Order Comment: Speci men Type: BLOOD SPECIMENOrdering Facility: [facility] Address: [address] [place], [place] [address] Performed By: #### 2 4321-2, 60561-2, 2776-08 ####[facility] LABCLIA [id number] [place] [id number] [place] Urea nitrogen [Mass/Vol] 16 mg/dL Normal 9-24 [facility] Comment on above: Order Comment: Speci men Type: BLOOD SPECIMENOrdering Facility: [facility] Address: [address] [place] [address] Performed By: #### 2 4321-2, 42820-7, 2776-1 ####[facility] LABCLIA [id number] [address] [address] [place] CASE MANAGEMon 11-18-2024 CASE MANAGEM Normal [facility] CBC W Auto Differential pane l (Bld)on 11-18-2024 Basophils (Bld) [#/Vol] 10*3/uL Normal <0.11 C [facility] Comment on above: Order Comment: Speci men Type: BLOOD SPECIMENOrdering Facility: [facility] Address: [address] [place] [address] Performed By: #### 5 7021-8 ####[facility] LABCLIA [id number] [place] [id number] [place] Basophils/100 WBC (Bld) 0.0 % Normal [facility] Comment on above: Order Comment: Speci men Type: BLOOD SPECIMENOrdering Facility: [facility] Address: [address] [place] [address] Performed By: #### 5 7021-8 ####[facility] LABCLIA [id number] [place] [address] [place] Differential cell count method Nom (Bld) Auto Normal [facility] Comment on above: Order Comment: Speci men Type: BLOOD SPECIMENOrdering Facility: [facility] Address: [address] [place] [address] Performed By: #### 5 7021-8 ####[facility] LABCLIA [id number] [place] [address] [place] Eosinophils (Bld) [#/Vol] 10*3/uL Normal <0.46 [facility] Comment on above: Order Comment: Speci men Type: BLOOD SPECIMENOrdering Facility: [facility] Address: [address] [place] [address] Performed By: #### 5 7021-8 ####[facility] LABCLIA [id number] [place] [id number] [place] Eosinophils/100 WBC (Bld) 0.1 % Normal [facility] Comment on above: Order Comment: Speci men Type: BLOOD SPECIMENOrdering Facility: [facility] Address: [address] [place] [address] Performed By: #### 5 7021-8 ####[facility] LABCLIA [id number] [place] [address] [place] Erythrocyte distribution width (RBC) [Ratio] 16.7 % High 11.5-15.0 [facility] Comment on above: Order Comment: Speci men Type: BLOOD SPECIMENOrdering Facility: [facility] Address: [address] [place] [address] Performed By: #### 5 7021-8 ####[facility] LABCLIA [id number] [place] [address] [place] Hematocrit (Bld) [Volume fraction] 21.5 % Low 39.0-51.0 [facility] Comment on above: Order Comment: Speci men Type: BLOOD SPECIMENOrdering Facility: [facility] Address: [address] [place] [address] Performed By: #### 5 7021-8 ####[facility] LABIA [id number] [place] [address] [place] Hemoglobin (Bld) [Mass/Vol] 7.2 g/dL Low 13.0-17.0 [facility] Comment on above: Order Comment: Speci men Type: BLOOD SPECIMENOrdering Facility: [facility] Address: [address] [place] [address] Performed By: #### 5 7021-8 ####[facility] LABCLIA [id number] [place] [id number] [place] Immature granulocytes (Bld) [#/Vol] 0.06 10*3/uL Normal <0.10 [facility] Comment on above: Order Comment: Speci men Type: BLOOD SPECIMENOrdering Facility: [facility] Address: [address] [place] [address] Performed By: #### 5 7021-8 ####[facility] LABCLIA [id number] [place] [address] [place] Immature granulocytes/100 WBC (Bld) 0.7 % Normal [facility] Comment on above: Order Comment: Speci men Type: BLOOD SPECIMENOrdering Facility: [facility] Address: [address] [place] [address] Performed By: #### 5 7021-8 ####[facility] LABCLIA [id number] [place] [address] [place] Lymphocytes (Bld) [#/Vol] 0.61 10*3/uL Low 1.00-4.00 [facility] Comment on above: Order Comment: Speci men Type: BLOOD SPECIMENOrdering Facility: [facility] Address: [address] [place] [address] Performed By: #### 5 7021-8 ####[facility] LABIA [id number] [place] [address] [place] Lymphocytes/100 WBC (Bld) 7.3 % Normal [facility] Comment on above: Order Comment: Speci men Type: BLOOD SPECIMENOrdering Facility: [facility] Address: [address] [place] [address] Performed By: #### 5 7021-8 ####[facility] LABIA [id number] [place] [address] [place] MCH (RBC) [Entitic mass] 30.9 pg Normal 26.0-34.0 [facility] Comment on above: Order Comment: Speci men Type: BLOOD SPECIMENOrdering Facility: [facility] Address: [address] [place] [address] Performed By: #### 5 7021-8 ####[facility] LABIA [id number] [place] [address] [place] MCHC (RBC) [Mass/Vol] 33.5 g/dL Normal 30.5-36.0 [facility] Comment on above: Order Comment: Speci men Type: BLOOD SPECIMENOrdering Facility: [facility] Address: [address] [place] [address] Performed By: #### 5 7021-8 ####[facility] LABIA [id number] [place] [address] [place] MCV (RBC) [Entitic vol] 92.3 fL Normal 80.0-100.0 C [facility] Comment on above: Order Comment: Speci men Type: BLOOD SPECIMENOrdering Facility: [facility] Address: [address] [place] [address] Performed By: #### 5 7021-8 ####[facility] LABIA [id number] [place] [address] [place] Monocytes (Bld) [#/Vol] 0.72 10*3/uL Normal <0.87 [facility] Comment on above: Order Comment: Speci men Type: BLOOD SPECIMENOrdering Facility: [facility] Address: [address] [place] [address] Performed By: #### 5 7021-8 ####[facility] LABIA [id number] [place] [address] [place] Monocytes/100 WBC (Bld) 8.7 % Normal C [facility] Comment on above: Order Comment: Speci men Type: BLOOD SPECIMENOrdering Facility: [facility] Address: [address] [place] [address] Performed By: #### 5 7021-8 ####[facility] LABIA [id number] [place] [address] [place] Neutrophils (Bld) [#/Vol] 6.92 10*3/uL Normal 1.45-7.50 [facility] Comment on above: Order Comment: Speci men Type: BLOOD SPECIMENOrdering Facility: [facility] Address: [address] [place] [address] Performed By: #### 5 7021-8 ####[facility] LABCLIA [id number] [place] [address] [place] Neutrophils/100 WBC (Bld) 83.2 % Normal [facility] Comment on above: Order Comment: Speci men Type: BLOOD SPECIMENOrdering Facility: [facility] Address: [address] [place] [address] Performed By: #### 5 7021-8 ####[facility] LABCLIA [id number] [place] [address] [place] Nucleated RBC (Bld) [#/Vol] 10*3/uL Normal <0.01 [facility] Comment on above: Order Comment: Speci men Type: BLOOD SPECIMENOrdering Facility: [facility] Address: [address] [place] [address] Performed By: #### 5 7021-8 ####[facility] LABIA [id number] [place] [address] [place] Nucleated RBC/100 WBC (Bld) [Ratio] 0.0 /100 WBC Normal [facility] Comment on above: Order Comment: Speci men Type: BLOOD SPECIMENOrdering Facility: [facility] Address: [address] [place] [address] Performed By: #### 5 7021-8 ####[facility] LABIA [id number] [place] [address] [place] Platelet mean volume (Bld) [Entitic vol] 12.1 fL Normal 9.0-12.7 [facility] Comment on above: Order Comment: Speci men Type: BLOOD SPECIMENOrdering Facility: [facility] Address: [address] [place] [address] Performed By: #### 5 7021-8 ####[facility] LABCLIA [id number] [place] [address] [place] Platelets (Bld) [#/Vol] 76 10*3/uL Low 150-400 C [facility] Comment on above: Order Comment: Speci men Type: BLOOD SPECIMENOrdering Facility: [facility] Address: [address] [place] [address] Result Comment: No c lot detected. Performed By: #### 5 7021-8 ####[facility] LABCLIA [id number] [place] [address] [place] RBC (Bld) [#/Vol] 2.33 10*6/uL Low 4.20-6.00 [facility] Comment on above: Order Comment: Speci men Type: BLOOD SPECIMENOrdering Facility: [facility] Address: [address] [place] [address] Performed By: #### 5 7021-8 ####[facility] LABCLIA [id number] [place] [address] [place] WBC (Bld) [#/Vol] 8.32 10*3/uL Normal 3.70-11.00 [facility] Comment on above: Order Comment: Speci men Type: BLOOD SPECIMENOrdering Facility: [facility] Address: [address] [place] [address] Performed By: #### 5 7021-8 ####[facility] LABCLIA [id number] [place] [address] [place] CNCOon 11-18-2024 CNCO Letter Text Normal [facility] CNDSon 11-18-2024 CNDS Normal [facility] CNPNon 11-18-2024 CNPN Normal [facility] Fibrinogen PPP-mCncon 2024 Fibrinogen Coag (PPP) [Mass/Vol] 104 mg/dL Low 200-400 [facility] Comment on above: Order Comment: Speci men Type: BLOOD SPECIMENOrdering Facility: [facility] Address: [address] [place] [address] Performed By: #### 3 255-7, 39290-1 ####[facility] LABCLIA [id number] [address] [place] [address] [place] Hepatic function 2000 panelo n 11-18-2024 Albumin [Mass/Vol] 2.6 g/dL Low 3.9-4.9 [facility] Comment on above: Order Comment: Speci men Type: BLOOD SPECIMENOrdering Facility: [facility] Address: [address] [place] [address] Performed By: #### 2 4321-2, 39102-3, 277-1 ####[facility] LABCLIA [id number] [place] [id number] [place] ALP [Catalytic activity/Vol] 245 U/L High 38-113 [facility] Comment on above: Order Comment: Speci men Type: BLOOD SPECIMENOrdering Facility: [facility] Address: [address] [place] [address] Performed By: #### 2 4321-2, 27341-9, 277-1 ####[facility] LABCLIA [id number] [place] [id number] [place] ALT [Catalytic activity/Vol] 31 U/L Normal 10-54 [facility] Comment on above: Order Comment: Speci men Type: BLOOD SPECIMENOrdering Facility: [facility] Address: [address] [place] [address] Performed By: #### 2 4321-2, 83200-6, 277-1 ####[facility] LABCLIA [id number] [place] [id number] [place] AST [Catalytic activity/Vol] 52 U/L High 14-40 [facility] Comment on above: Order Comment: Speci men Type: BLOOD SPECIMENOrdering Facility: [facility] Address: [address] [place] [address] Performed By: #### 2 4321-2, 97016-5, 2777-1 ####[facility] LABCLIA [id number] [place] [id number] [place] Bilirubin [Mass/Vol] 1.2 mg/dL Normal 0.2-1.3 [facility] Comment on above: Order Comment: Speci men Type: BLOOD SPECIMENOrdering Facility: [facility] Address: [address] [place] [address] Performed By: #### 2 4321-2, 37256-7, 2777-1 ####[facility] LABCLIA [id number] [place] [address] [place] Bilirubin.conjugated [Mass/Vol] 0.7 mg/dL High <0.3 [facility] Comment on above: Order Comment: Speci men Type: BLOOD SPECIMENOrdering Facility: [facility] Address: [address] [place] [address] Performed By: #### 2 4321-2, 19585-2, 2777-1 ####[facility] LABCLIA [id number] [place] [address] [place] Protein [Mass/Vol] 5.0 g/dL Low 6.3-8.0 [facility] Comment on above: Order Comment: Speci men Type: BLOOD SPECIMENOrdering Facility: [facility] Address: [address] [place] [address] Performed By: #### 2 4321-2, 49430-2, 2777-1 ####[facility] LABIA [id number] [place] [address] [place] NURSING PROGon 11-18-2024 NURSING PROG Normal [facility] PT panel Coag (PPP)on 2024 INR Coag (PPP) [Relative time] 2.0 {INR} High 0.9-1.3 [facility] Comment on above: Order Comment: Speci men Type: BLOOD SPECIMENOrdering Facility: [facility] Address: [address] [place] [address] Result Comment: Sarah min K Antagonist (VKA) Therapeutic Range: INR 2 to 3 (Target INR of 2.5)Note: For patients treated with VKA drugs, such as warfarin, the [place] [employer] 2012 Guideline recommends a therapeutic INR range of 2 to 3 (target INR of 2.5). This recommendation includes high-risk patients with antiphospholipid syndrome with previous arterial or venous thromboembolism, current-generation mechanical or bioprosthetic aortic heart valve replacement.Note: Patients with mechanical aortic valve replacement and additional risk factors for thromboembolic events (atrial fibrillation, previous thromboembolism, LV dysfunction, hypercoagulable conditions) or an older generation mechanical AVR (i.e., ball in-Cage) or any mechanical MVR should have a INR therapeutic range of 2.5 to 3.5 (target INR of 3).Tammi GH, et al. Chest 2012, 141:7S-47SNishimura RA, et al. [facility] 2017, 70: 252-289 Performed By: #### 3 255-7, 91119-2 ####[facility] LABIA [id number] [place] [address] [place] PT Coag (PPP) [Time] 20.9 s High 9.7-13.0 [facility] Comment on above: Order Comment: Speci men Type: BLOOD SPECIMENOrdering Facility: [facility] Address: [address] [place] [address] Performed By: #### 3 255-7, 68145-5 ####[facility] [id number] [place] [address] [place] Phosphate SerPl-mCncon 11-18 Phosphate [Mass/Vol] 2.4 mg/dL Low 2.7-4.8 [facility] Comment on above: Order Comment: Speci men Type: BLOOD SPECIMENOrdering Facility: [facility] Address: [address] [place] [address] Performed By: #### 2 4321-2, 48575-8, 2777-1 ####[facility] LABIA [id number] [place] [address] [place] TYPE + SCREENon 11-18-2024 ABO O Normal [facility] Comment on above: Order Comment: Speci men Type: BLOOD SPECIMENOrdering Facility: [facility] Address: [address] [place] [address] Performed By: #### T SCR ####[facility] BANKCLIA [id number] [place] [address] [place] Rh Nom (Bld) Positive Normal [facility] Comment on above: Order Comment: Speci men Type: BLOOD SPECIMENOrdering Facility: [facility] Address: [address] [place] [address] Performed By: #### T SCR ####[facility] BLOOD BANKCLIA [id number] [address] OF [facility] TYPE AND SCREEN EXPIRATION 11/21/2024 23:59 Normal [facility] Comment on above: Order Comment: Speci men Type: BLOOD SPECIMENOrdering Facility: [facility] Address: [address] [place] [address] Performed By: #### T SCR ####[facility] BLOOD BANKCLIA [id number] [address] [place] Urinalysis complete panel (U )on 11-18-2024 BACTERIA UL 1671.0 uL High Negative [facility] Comment on above: Order Comment: Speci men Type: URINE SPECIMENOrdering Facility: [facility] Address: [address] [place] [address] Performed By: #### 2 4356-8, 630-4 ####[facility] LABCLIA [id number] [address] [place] Bilirubin Ql (U) 2+ Abnormal Negative [facility] Comment on above: Order Comment: Speci men Type: URINE SPECIMENOrdering Facility: [facility] Address: [address] [place] [address] Result Comment: Sugg est correlation with clinical findings and serum bilirubin if clinically indicated. Performed By: #### 2 4356-8, 630-4 ####[facility] LABCLIA [id number] [facility] [address] [place] [address] [place] CALCIUM OXALATE CRYSTALS (UA) Few Abnormal None Seen [facility] Comment on above: Order Comment: Speci men Type: URINE SPECIMENOrdering Facility: [facility] Address: [address] [place] [address] Performed By: #### 2 4356-8, 630-4 ####[facility] LABCLIA [id number] [facility] [address] [place] [address] [place] Clarity (Unsp spec) Turbid Abnormal Clear [facility] Comment on above: Order Comment: Speci men Type: URINE SPECIMENOrdering Facility: [facility] Address: [address] [place] [address] Performed By: #### 2 43568, 630-4 ####[facility] LABCLIA [id number] [address], [facility]95 [place] Color (U) Red Abnormal Yellow [facility] Comment on above: Order Comment: Speci men Type: URINE SPECIMENOrdering Facility: [facility] Address: [address] [place] [address] Performed By: #### 2 4356, 630-4 ####[facility] LABCLIA [id number] [facility] [address], [facility]95 [place] Epithelial cells LM.HPF (Urine sed) [#/Area] None Seen Normal [facility] Comment on above: Order Comment: Speci men Type: URINE SPECIMENOrdering Facility: [facility] Address: [address] [place] [address] Performed By: #### 2 4356-8, 630-4 ####[facility] LABCLIA [id number] [facility] [address], [facility]95 [place] Glucose Test strip (U) [Mass/Vol] Negative Normal Negative [facility] Comment on above: Order Comment: Speci men Type: URINE SPECIMENOrdering Facility: [facility] Address: [address] [place] [address] Performed By: #### 2 4356-8, 630-4 ####[facility] LABCLIA [id number] [place] [id number] [place] Hemoglobin Ql (U) 2+ Abnormal Negative [facility] Comment on above: Order Comment: Speci men Type: URINE SPECIMENOrdering Facility: [facility] Address: [address] [place] [address] Performed By: #### 2 4356-8, 630-4 ####[facility] LABCLIA [id number] [place] [address] [place] Hyaline casts (Urine sed) [#/Area] 0 /[LPF] Normal 0 /LPF [facility] Comment on above: Order Comment: Speci men Type: URINE SPECIMENOrdering Facility: [facility] Address: [address] [place] [address] Performed By: #### 2 4356-8, 630-4 ####[facility] LABCLIA [id number] [place] [address] [place] Ketones Ql (U) Negative Normal Negative [facility] Comment on above: Order Comment: Speci men Type: URINE SPECIMENOrdering Facility: [facility] Address: [address] [place] [address] Performed By: #### 2 4356-8, 630-4 ####[facility] LABCLIA [id number] [place] [id number] [place] Leukocyte esterase Test strip Ql (U) 3+ Abnormal Negative [facility] Comment on above: Order Comment: Speci men Type: URINE SPECIMENOrdering Facility: [facility] Address: [address] [place] [address] Performed By: #### 2 4356-8, 630-4 ####[facility] LABCLIA [id number] [place] [address] [place] Nitrite Ql (U) Negative Normal Negative [facility] Comment on above: Order Comment: Speci men Type: URINE SPECIMENOrdering Facility: [facility] Address: [address] [place] [address] Result Comment: Resu lt rechecked. Performed By: #### 2 4356-8, 630-4 ####[facility] LABCLIA [id number] [place] [address] [place] pH (U) 5.0 [pH] Normal <8.5 [facility] Comment on above: Order Comment: Speci men Type: URINE SPECIMENOrdering Facility: [facility] Address: [address] [place] [address] Performed By: #### 2 4356-8, 630-4 ####[facility] LABCLIA [id number] [place] [address] [place] Protein (U) [Mass/Vol] 2+ Abnormal Negative [facility] Comment on above: Order Comment: Speci men Type: URINE SPECIMENOrdering Facility: [facility] Address: [address] [place] [address] Performed By: #### 2 4356-8, 630-4 ####[facility] LABIA [id number] [place] [address] [place] RBC LM.HPF (Urine sed) [#/Area] /[HPF] Abnormal 0-2 /HPF [facility] Comment on above: Order Comment: Speci men Type: URINE SPECIMENOrdering Facility: [facility] Address: [address] [place] [address] Performed By: #### 2 4356-8, 630-4 ####[facility] LABIA [id number] [place] [address] [place] Specific gravity (U) [Rel density] 1.021 Normal 1.005-1.030 [facility] Comment on above: Order Comment: Speci men Type: URINE SPECIMENOrdering Facility: [facility] Address: [address] [place] [address] Performed By: #### 2 4356-8, 630-4 ####[facility] LABIA [id number] [place] [address] [place] Urobilinogen Ql (U) 0.2 EU/dL Normal 0.2-1.0 EU/dL [facility] Comment on above: Order Comment: Speci men Type: URINE SPECIMENOrdering Facility: [facility] Address: [address] [place] [address] Performed By: #### 2 4356-8, 630-4 ####[facility] LABIA [id number] [place] [address] [place] WBC LM.HPF (Urine sed) [#/Area] /[HPF] Abnormal 0-5 /HPF [facility] Comment on above: Order Comment: Speci men Type: URINE SPECIMENOrdering Facility: [facility] Address: [address] [place] [address] Performed By: #### 2 4356-8, 630-4 ####[facility] LABIA [id number] [place] [address] [place] Yeast.budding LM.HPF (Urine sed) [#/Area] Present Abnormal None Seen [facility] Comment on above: Order Comment: Speci men Type: URINE SPECIMENOrdering Facility: [facility] Address: [address] [place] [address] Performed By: #### 2 4356-8, 630-4 ####[facility] LABIA [id number] [place] [address] [place] Basic metabolic 2000 panelon 11-17-2024 Anion gap [Moles/Vol] 10 mmol/L Normal 8-15 [facility] Comment on above: Order Comment: Speci men Type: BLOOD SPECIMENOrdering Facility: [facility] Address: [address] [place], [place] [address] Performed By: #### 2 4321-2, 30094-7, 2776-08 ####[facility] LABCLIA [id number] [place] [address] [place] Calcium [Mass/Vol] 8.9 mg/dL Normal 8.5-10.2 [facility] Comment on above: Order Comment: Speci men Type: BLOOD SPECIMENOrdering Facility: [facility] Address: [address] [place] [address] Performed By: #### 2 4321-2, 87052-6, 2776-08 ####[facility] LABCLIA [id number] [place] [address] [place] Chloride [Moles/Vol] 105 mmol/L Normal 98-107 [facility] Comment on above: Order Comment: Speci men Type: BLOOD SPECIMENOrdering Facility: [facility] Address: [address] [place] [address] Performed By: #### 2 4321-2, 64799-0, 2776-08 ####[facility] LABIA [id number] [place] [address] [place] CO2 [Moles/Vol] 17 mmol/L Low 22-30 [facility] Comment on above: Order Comment: Speci men Type: BLOOD SPECIMENOrdering Facility: [facility] Address: [address] [place], [place] [address] Performed By: #### 2 4321-2, 27975-0, 2776-08 ####[facility] LABIA [id number] [place] [id number] [place] Creatinine [Mass/Vol] 0.77 mg/dL Normal 0.73-1.22 [facility] Comment on above: Order Comment: Speci men Type: BLOOD SPECIMENOrdering Facility: [facility] Address: [address] [place], [place] [address] Performed By: #### 2 4321-2, 49144-1, 2777- ####[facility] LABIA [id number] [place] [id number] [place] Creatinine and Glomerular filtration rate.predicted panel (S/P/Bld) 104 mL/min/1.73m??? Normal >=60 [facility] Comment on above: Order Comment: Ezekiel ramirez Type: BLOOD SPECIMENOrdering Facility: [facility] Address: [address] [place] [address] Result Comment: Patric mated Glomerular Filtration Rate (eGFR) is calculated using the 2020 CKD-EPI creatinine equation. This equation utilizes serum creatinine, sex, and age as parameters. The creatinine assay has traceable calibration to isotope dilution-mass spectrometry. Refer to KDIGO guidelines for clinical interpretation. In patients with unstable renal function, e.g. those with acute kidney injury, the eGFR may not accurately reflect actual GFR. Performed By: #### 2 4321-2, 10033-2, 2777- ####[facility] LABIA [id number] [address] [address] [place] Glucose [Mass/Vol] 291 mg/dL High 74-99 [facility] Comment on above: Order Comment: Ezekiel ramirez Type: BLOOD SPECIMENOrdering Facility: [facility] Address: [address] [place] [address] Result Comment: The [place] Diabetes Association (ADA) provides guidance for cutoff values for fasting glucose and random glucose. The ADA defines fasting as no caloric intake for at least 8 hours. Fasting plasma glucose results between 100 to 125 mg/dL indicate increased risk for diabetes (prediabetes).Fasting plasma glucose results greater than or equal to 126 mg/dL meet the criteria for diagnosis of diabetes. In the absence of unequivocal hyperglycemia, results should be confirmed by repeat testing. In a patient with classic symptoms of hyperglycemia or hyperglycemic crisis, random plasma glucose results greater than or equal to 200 mg/dL meet the criteria for diagnosis of diabetes.Reference: Standards of Medical Care in Diabetes 2016, [place] Diabetes Association. Diabetes Care. 2016.39(Suppl 1). Performed By: #### 2 4321-2, 78888-3, 2777- ####[facility] LABCLIA [id number] [place] [id number] [place] Potassium [Moles/Vol] 4.5 mmol/L Normal 3.7-5.1 [facility] Comment on above: Order Comment: Speci men Type: BLOOD SPECIMENOrdering Facility: [facility] Address: [address] [place] [address] Performed By: #### 2 4321-2, 59098-4, 2777- ####[facility] LABIA [id number] [place] [id number] [place] Sodium [Moles/Vol] 132 mmol/L Low 136-144 [facility] Comment on above: Order Comment: Speci men Type: BLOOD SPECIMENOrdering Facility: [facility] Address: [address] [place] [address] Performed By: #### 2 4321-2, 09781-0, 2777- ####[facility] LABIA [id number] [place] [id number] [place] Urea nitrogen [Mass/Vol] 9 mg/dL Normal 9-24 [facility] Comment on above: Order Comment: Speci men Type: BLOOD SPECIMENOrdering Facility: [facility] Address: [address] [place] [address] Performed By: #### 2 4321-2, 22057-8, 2777- ####[facility] LABIA [id number] [place] [id number] [place] CASE MANAGEMon 11-17-2024 CASE MANAGEM Normal [facility] CBC W Auto Differential pane l (Bld)on 11-17-2024 Basophils (Bld) [#/Vol] 10*3/uL Normal <0.11 C [facility] Comment on above: Order Comment: Speci men Type: BLOOD SPECIMENOrdering Facility: [facility] Address: [address] [place] [address] Performed By: #### 5 7021-8 ####[facility] LABCLIA [id number] [facility] [address], [place] [address] [place] Basophils/100 WBC (Bld) 0.0 % Normal [facility] Comment on above: Order Comment: Speci men Type: BLOOD SPECIMENOrdering Facility: [facility] Address: [address] [place] [address] Performed By: #### 5 7021-8 ####[facility] LABCLIA [id number] [address], [place] [address] [place] Differential cell count method Nom (Bld) Auto Normal [facility] Comment on above: Order Comment: Speci men Type: BLOOD SPECIMENOrdering Facility: [facility] Address: [address] [place] [address] Performed By: #### 5 7021-8 ####[facility] LABCLIA [id number] [address], [place] [address] [place] Eosinophils (Bld) [#/Vol] 10*3/uL Normal <0.46 [facility] Comment on above: Order Comment: Speci men Type: BLOOD SPECIMENOrdering Facility: [facility] Address: [address] [place] [address] Performed By: #### 5 7021-8 ####[facility] LABCLIA [id number] [address], [address] [place] Eosinophils/100 WBC (Bld) 0.0 % Normal [facility] Comment on above: Order Comment: Speci men Type: BLOOD SPECIMENOrdering Facility: [facility] Address: [address] [place] [address] Performed By: #### 5 7021-8 ####[facility] LABCLIA [id number] [address], [facility]95 [place] Erythrocyte distribution width (RBC) [Ratio] 16.9 % High 11.5-15.0 [facility] Comment on above: Order Comment: Speci men Type: BLOOD SPECIMENOrdering Facility: [facility] Address: [address] [place] [address] Performed By: #### 5 7021-8 ####[facility] LABCLIA [id number] [address] [address] [place] Hematocrit (Bld) [Volume fraction] 22.7 % Low 39.0-51.0 [facility] Comment on above: Order Comment: Speci men Type: BLOOD SPECIMENOrdering Facility: [facility] Address: [address] [place] [address] Performed By: #### 5 7021-8 ####[facility] LABCLIA [id number] [place] [address] [place] Hemoglobin (Bld) [Mass/Vol] 7.7 g/dL Low 13.0-17.0 [facility] Comment on above: Order Comment: Speci men Type: BLOOD SPECIMENOrdering Facility: [facility] Address: [address] [place] [address] Performed By: #### 5 7021-8 ####[facility] LABIA [id number] [place] [address] [place] Immature granulocytes (Bld) [#/Vol] 0.03 10*3/uL Normal <0.10 [facility] Comment on above: Order Comment: Speci men Type: BLOOD SPECIMENOrdering Facility: [facility] Address: [address] [place] [address] Performed By: #### 5 7021-8 ####[facility] LABCLIA [id number] [place] [address] [place] Immature granulocytes/100 WBC (Bld) 0.9 % Normal [facility] Comment on above: Order Comment: Speci men Type: BLOOD SPECIMENOrdering Facility: [facility] Address: [address] [place] [address] Performed By: #### 5 7021-8 ####[facility] LABCLIA [id number] [place] [address] [place] Lymphocytes (Bld) [#/Vol] 0.28 10*3/uL Low 1.00-4.00 [facility] Comment on above: Order Comment: Speci men Type: BLOOD SPECIMENOrdering Facility: [facility] Address: [address] [place] [address] Performed By: #### 5 7021-8 ####[facility] LABCLIA [id number] [place] [address] [place] Lymphocytes/100 WBC (Bld) 8.3 % Normal [facility] Comment on above: Order Comment: Speci men Type: BLOOD SPECIMENOrdering Facility: [facility] Address: [address] [place] [address] Performed By: #### 5 7021-8 ####[facility] LABIA [id number] [place] [address] [place] MCH (RBC) [Entitic mass] 31.7 pg Normal 26.0-34.0 [facility] Comment on above: Order Comment: Speci men Type: BLOOD SPECIMENOrdering Facility: [facility] Address: [address] [place] [address] Performed By: #### 5 7021-8 ####[facility] LABCLIA [id number] [place] [address] [place] MCHC (RBC) [Mass/Vol] 33.9 g/dL Normal 30.5-36.0 [facility] Comment on above: Order Comment: Speci men Type: BLOOD SPECIMENOrdering Facility: [facility] Address: [address] [place] [address] Performed By: #### 5 7021-8 ####[facility] LABIA [id number] [place] [address] [place] MCV (RBC) [Entitic vol] 93.4 fL Normal 80.0-100.0 C [facility] Comment on above: Order Comment: Speci men Type: BLOOD SPECIMENOrdering Facility: [facility] Address: [address] [place] [address] Performed By: #### 5 7021-8 ####[facility] LABCLIA [id number] [facility] [place] [address] [place] Monocytes (Bld) [#/Vol] 0.17 10*3/uL Normal <0.87 [facility] Comment on above: Order Comment: Speci men Type: BLOOD SPECIMENOrdering Facility: [facility] Address: [address] [place] [address] Performed By: #### 5 7021-8 ####[facility] LABCLIA [id number] [facility] [place] [address] [place] Monocytes/100 WBC (Bld) 5.0 % Normal C [facility] Comment on above: Order Comment: Speci men Type: BLOOD SPECIMENOrdering Facility: [facility] Address: [address] [place] [address] Performed By: #### 5 7021-8 ####[facility] LABCLIA [id number] [place] [address] [place] Neutrophils (Bld) [#/Vol] 2.89 10*3/uL Normal 1.45-7.50 [facility] Comment on above: Order Comment: Speci men Type: BLOOD SPECIMENOrdering Facility: [facility] Address: [address] [place] [address] Performed By: #### 5 7021-8 ####[facility] LABCLIA [id number] [place] [address] [place] Neutrophils/100 WBC (Bld) 85.8 % Normal [facility] Comment on above: Order Comment: Speci men Type: BLOOD SPECIMENOrdering Facility: [facility] Address: [address] [place], [place] [address] Performed By: #### 5 7021-8 ####[facility] LABCLIA [id number] [address], [place] [address] [place] Nucleated RBC (Bld) [#/Vol] 10*3/uL Normal <0.01 [facility] Comment on above: Order Comment: Speci men Type: BLOOD SPECIMENOrdering Facility: [facility] Address: [address] [place] [address] Performed By: #### 5 7021-8 ####[facility] LABCLIA [id number] [address], [place] [address] [place] Nucleated RBC/100 WBC (Bld) [Ratio] 0.0 /100 WBC Normal [facility] Comment on above: Order Comment: Speci men Type: BLOOD SPECIMENOrdering Facility: [facility] Address: [address] [place] [address] Performed By: #### 5 7021-8 ####[facility] LABIA [id number] [address], [place] [address] [place] Platelet mean volume (Bld) [Entitic vol] 12.0 fL Normal 9.0-12.7 [facility] Comment on above: Order Comment: Speci men Type: BLOOD SPECIMENOrdering Facility: [facility] Address: [address] [place] [address] Performed By: #### 5 7021-8 ####[facility] LABCLIA [id number] [address] [address] [place] Platelets (Bld) [#/Vol] 57 10*3/uL Low 150-400 C [facility] Comment on above: Order Comment: Speci men Type: BLOOD SPECIMENOrdering Facility: [facility] Address: [address] [place], [place] [address] Performed By: #### 5 7021-8 ####[facility] LABCLIA [id number] [address] [address] [place] RBC (Bld) [#/Vol] 2.43 10*6/uL Low 4.20-6.00 [facility] Comment on above: Order Comment: Speci men Type: BLOOD SPECIMENOrdering Facility: [facility] Address: [address] [place] [address] Performed By: #### 5 7021-8 ####[facility] LABIA [id number] [place] [address] [place] WBC (Bld) [#/Vol] 3.37 10*3/uL Low 3.70-11.00 [facility] Comment on above: Order Comment: Speci men Type: BLOOD SPECIMENOrdering Facility: [facility] Address: [address] [place] [address] Performed By: #### 5 7021-8 ####[facility] [id number] [place] [address] [place] CONSULT PROGon 11-17-2024 CONSULT PROG Normal [facility] Fact Xa PPP-aCncon Coagulation factor X activated act Coag Qn (PPP) <0.10 Normal <0.10 [facility] Comment on above: Order Comment: Speci men Type: BLOOD SPECIMENOrdering Facility: [facility] Address: [address] [place] [address] Result Comment: The recommended therapeutic range for treatment of venous and arterial thrombosis with intravenous unfractionated heparin is an anti Xa activity level of 0.3 to 0.7 IU/mL. In patients with concomitant therapy with thrombolytic agents and/or platelet glycoprotein IIb/IIIa antagonists, the recommended therapeutic range is an anti Xa activity level of 0.2 to 0.5 IU/mL. Performed By: #### 3 217-7 ####[facility] LABIA [id number] [place] [address] [place] Fibrinogen PPP-mCncon 2024 Fibrinogen Coag (PPP) [Mass/Vol] 114 mg/dL Low 200-400 [facility] Comment on above: Order Comment: Speci men Type: BLOOD SPECIMENOrdering Facility: [facility] Address: [address] [place] [address] Performed By: #### 3 255-7, 75592-3 ####[facility] LABCLIA [id number] [address] [address] [place] Hepatic function 2000 panelo n 11-17-2024 Albumin [Mass/Vol] 2.7 g/dL Low 3.9-4.9 [facility] Comment on above: Order Comment: Speci men Type: BLOOD SPECIMENOrdering Facility: [facility] Address: [address] [place] [address] Performed By: #### 2 4321-2, 24315-5, 2777-1 ####[facility] LABCLIA [id number] [place] [address] [place] ALP [Catalytic activity/Vol] 276 U/L High 38-113 [facility] Comment on above: Order Comment: Speci men Type: BLOOD SPECIMENOrdering Facility: [facility] Address: [address] [place] [address] Performed By: #### 2 4321-2, 00772-3, 2777-1 ####[facility] LABCLIA [id number] [place] [address] [place] ALT [Catalytic activity/Vol] 35 U/L Normal 10-54 [facility] Comment on above: Order Comment: Speci men Type: BLOOD SPECIMENOrdering Facility: [facility] Address: [address] [place] [address] Performed By: #### 2 4321-2, 36999-8, 2777-1 ####[facility] LABCLIA [id number] [place] [id number] [place] AST [Catalytic activity/Vol] 80 U/L High 14-40 [facility] Comment on above: Order Comment: Speci men Type: BLOOD SPECIMENOrdering Facility: [facility] Address: [address] [place], [place] [address] Performed By: #### 2 4321-2, 80492-4, 27702-01 ####[facility] LABCLIA [id number] [address] [address] [place] Bilirubin [Mass/Vol] 1.8 mg/dL High 0.2-1.3 [facility] Comment on above: Order Comment: Speci men Type: BLOOD SPECIMENOrdering Facility: [facility] Address: [address] [place], [place] [address] Performed By: #### 2 4321-2, 70078-6, 27702-01 ####[facility] LABCLIA [id number] [place] [id number] [place] Bilirubin.conjugated [Mass/Vol] 1.0 mg/dL High <0.3 [facility] Comment on above: Order Comment: Speci men Type: BLOOD SPECIMENOrdering Facility: [facility] Address: [address] [place], [place] [address] Performed By: #### 2 4321-2, 79373-2, 2776-08 ####[facility] LABCLIA [id number] [place] [id number] [place] Protein [Mass/Vol] 5.2 g/dL Low 6.3-8.0 [facility] Comment on above: Order Comment: Speci men Type: BLOOD SPECIMENOrdering Facility: [facility] Address: [address] [place], [place] [address] Performed By: #### 2 4321-2, 43928-9, 27702-01 ####[facility] LABCLIA [id number] [address] [address] [place] NUTRITIONon 11-17-2024 NUTRITION Normal [facility] PSA/PROSTATE SPECIFIC ANTIGE N SCREENINGon 11-17-2024 Prostate specific Ag [Mass/Vol] 0.52 ng/mL Normal <2.60 [facility] Comment on above: Order Comment: Speci men Type: BLOOD SPECIMENOrdering Facility: [facility] Address: [address] [place] [address] Result Comment: Tota l PSA test methodology used is the Electrochemiluminescence Immunoassay by [employer]. Total PSA values by differing methodologies cannot be interchanged. Performed By: #### P SAS1 ####[facility] LABIA [id number] [place] [address] [place] PT panel Coag (PPP)on 2024 INR Coag (PPP) [Relative time] 2.0 {INR} High 0.9-1.3 [facility] Comment on above: Order Comment: Speci men Type: BLOOD SPECIMENOrdering Facility: [facility] Address: [address] [place] [address] Result Comment: Sarah min K Antagonist (VKA) Therapeutic Range: INR 2 to 3 (Target INR of 2.5)Note: For patients treated with VKA drugs, such as warfarin, the [place] [employer] 2012 Guideline recommends a therapeutic INR range of 2 to 3 (target INR of 2.5). This recommendation includes high-risk patients with antiphospholipid syndrome with previous arterial or venous thromboembolism, current-generation mechanical or bioprosthetic aortic heart valve replacement.Note: Patients with mechanical aortic valve replacement and additional risk factors for thromboembolic events (atrial fibrillation, previous thromboembolism, LV dysfunction, hypercoagulable conditions) or an older generation mechanical AVR (i.e., ball in-Cage) or any mechanical MVR should have a INR therapeutic range of 2.5 to 3.5 (target INR of 3).Tammi GONZALES, et al. Chest 2012, 141:7S-47SEvanimnicolle RA, et al. [facility] 2017, 70: 252-289 Performed By: #### 3 255-7, 61216-7 ####[facility] LABIA [id number] [place] [address] [place] PT Coag (PPP) [Time] 20.6 s High 9.7-13.0 [facility] Comment on above: Order Comment: Speci men Type: BLOOD SPECIMENOrdering Facility: [facility] Address: [address] [place] [address] Performed By: #### 3 255-7, 48062-6 ####[facility] LABCLIA [id number] [place] [address] [place] PTT, ANTICOAGULANT THERAPYon 11-17-2024 aPTT Coag (PPP) [Time] 41.6 s High 23.0-32.4 [facility] Comment on above: Order Comment: Speci men Type: BLOOD SPECIMENOrdering Facility: [facility] Address: [address] [place] [address] Performed By: #### P TTAC ####[facility] LABCLIA [id number] [place] [address] [place] Phosphate SerPl-mCncon 11-17 Phosphate [Mass/Vol] 1.9 mg/dL Low 2.7-4.8 [facility] Comment on above: Order Comment: Speci men Type: BLOOD SPECIMENOrdering Facility: [facility] Address: [address] [place] [address] Performed By: #### 2 4321-2, 01171-8, 2777-1 ####[facility] LABCLIA [id number] [place] [address] [place] THERAPY NTon 11-17-2024 THERAPY NT Normal [facility] aPTT PPPon 11-17-2024 aPTT Coag (PPP) [Time] s High 23.0-32.4 [facility] Comment on above: Order Comment: Speci men Type: BLOOD SPECIMENOrdering Facility: [facility] Address: [address] [place] [address] Result Comment: Resu lt rechecked.Sample checked for clot. Performed By: #### 1 4979-9, PTTAC ####[facility] LABCLIA [id number] [address] [address] [place] ANES POSTPROC EVALon 025 ANES POSTPROC EVAL Normal [facility] ANES PRE-OPon 11-16-2024 ANES PRE-OP Normal [facility] Albumin Fld-mCncon 5 Albumin (Body fld) [Mass/Vol] 0.2 g/dL Normal See Comment [facility] Comment on above: Order Comment: Speci men Type: FLUID SPECIMENOrdering Facility: [facility] Address: [address] [place] [address] Result Comment: Body Fluid Albumin may be used in classifying ascitic fluid into high-gradient or low-gradient fluids as determined by the serum-ascites albumin gradient, which is calculated as (serum albumin) - (ascites albumin).The serum and fluid specimens should be drawn with a minimal intervening time interval to appropriately analyze the gradient.Gradients greater than or equal to 1.1 g/dL are considered high, which reflects a high hydrostatic pressure, commonly caused by: cirrhosis or other processes generating portal hypertension.In samples where gradients are less than 1.1 g/dL, ascites generated from conditions without portal hypertension should be considered.Reference:1. CLSI. Analysis of Body Fluids in Clinical Chemistry Approved Guideline. CLSI document C49A. Joe PA: Clinical Laboratory Standards [place]: 2007.2. Amy JACKSON. Serum to ascites albumin gradient. UpToDate. 2015. Accessed on November 15, 2015.This test was developed, and its performance characteristics determined by the [facility] Department of Pathology and Laboratory Medicine. It has not been cleared or approved by the FDA. The [facility] Department of Pathology and Laboratory Medicine is regulated under CLIA as qualified to perform high-complexity testing. This test is used for clinical purposes. It should not be regarded as investigational or for research. Performed By: #### 1 795-4, 2881-1, 1747-5 ####[facility] LABCLIA [id number] [address] [place] Fluid Nom (Body fld) Ascites Fluid Normal C [facility] Comment on above: Order Comment: Speci men Type: FLUID SPECIMENOrdering Facility: [facility] Address: [address] [place] [address] Performed By: #### 1 795-4, 2881-1, 1747-5 ####[facility] LABCLIA [id number] [place] [address] [place] Amylase Fld-cCncon 5 Amylase (Body fld) [Catalytic activity/Vol] 17 U/L Normal See Comment [facility] Comment on above: Order Comment: Speci men Type: FLUID SPECIMENOrdering Facility: [facility] Address: [address] [place] [address] Result Comment: PLEU RAL FLUIDS:Amylase measurement in pleural fluid is considered a useful test for detecting amylase-rich pleural effusions, which may be caused by exudative conditions associated with pancreatitis, esophageal rupture, malignancy, pneumonia, and liver cirrhosis. A ratio of pleural fluid amylase to a concurrent serum amylase >1 is defined asan amylase-rich pleural effusion.PERITONEAL FLUIDS AND DRAINAGE FLUIDS:Pancreatic damage causes extravasation of amylase from the exocrine cells into the peritoneal space. In cases of pancreatitis, fluid amylase should be at least several-fold times higher in fluid of pancreatic origin compared to concurrent serum amylase values.PANCREATIC CYST FLUID:Pancreatic cyst fluid amylase may aid in characterizing tumors and should be interpreted along with other clinical and laboratory information.References:1. Florentino MOLNIA, Makenzie Marte. Body fluid analysis: clinical utility and applicability of published studies to guide interpretation of todays laboratory testing in serous fluids. Crit Rev Clin Lab Sci, 2013;50(4-5):107-124.2. CLSI. Analysis of Body Fluids in Clinical Chemistry; Approved Guideline. CLSI document C49-A. JoePAULETTE: Clinical Laboratory Standards [place]; 2007.3. Kelby CONCEPCION, John BRAR, Star DJ. Use of cyst fluid CEA, CA19-9, and amylase for evaluation of pancreatic lesions. Clinical Biochemistry. 2009;42:5363-7585.This test was developed, and its performance characteristics determined by the [facility] Department of Pathology and Laboratory Medicine. It has not been cleared or approved by the FDA. The [facility] Department of Pathology and Laboratory Medicine is regulated under CLIA as qualified to perform high-complexity testing. This test is used for clinical purposes. It should not be regarded as investigational or for research. Performed By: #### 1 795-4, 2881-1, 1747-5 ####[facility] LABCLIA [id number] [address] [place] [address] [place] BODY FLUID CELL COUNTon 04-1 Clarity (Unsp spec) Clear Normal Clear [facility] Comment on above: Order Comment: Speci men Type: FLUID SPECIMENOrdering Facility: [facility] Address: [address] [place] [address] Performed By: #### C CBF, [id number] ####[facility] LABCLIA [id number] [address] [place] [address] [place] Color (Body fld) Yellow Normal Yellow [facility] Comment on above: Order Comment: Speci men Type: FLUID SPECIMENOrdering Facility: [facility] Address: [address] [place] [address] Performed By: #### C CBF, [id number] ####[facility] LABCLIA [id number] [address] [place] [address] [place] RBC Manual cnt (Body fld) [#/Vol] 3000 /uL High <2000 [facility] Comment on above: Order Comment: Speci men Type: FLUID SPECIMENOrdering Facility: [facility] Address: [address] [place] [address] Performed By: #### C CBF, [id number] ####[facility] LABCLIA [id number] [address] [place] [address] [place] Specimen source Nom (Body fld) Ascites Fluid Normal [facility] Comment on above: Order Comment: Speci men Type: FLUID SPECIMENOrdering Facility: [facility] Address: [address] [place] [address] Performed By: #### C CBF, [id number] ####[facility] LABCLIA [id number] [address] [place] [address] [place] WBC Manual cnt (Body fld) [#/Vol] 58 /uL Normal <1000 [facility] Comment on above: Order Comment: Speci men Type: FLUID SPECIMENOrdering Facility: [facility] Address: [address] [place] [address] Performed By: #### C CBF, [id number] ####[facility] LABCLIA [id number] [place] [address] [place] Bacteria Fld Culton 11-17-19 25 Bacteria identified Cx Nom (Body fld) CULTURE, BODY FLD: No growth GRAM STAIN: No organisms seen Few Polymorphonuclear leukocytes Gram stain performed on cytospun specimen. Gram stain from primary specimen Normal [facility] Comment on above: Performed By: #### 6 35-3, 611-4 ####[facility] LABCLIA [id number] [place] [address] [place] Bacteria Spec Anaerobe Culto n 11-16-2024 Bacteria identified Anaer cx Nom (Unsp spec) Negative Normal [facility] Comment on above: Performed By: #### 6 35-3, 611-4 ####[facility] LABCLIA [id number] [place] [address] [place] Basic metabolic 2000 panelon 11-16-2024 Anion gap [Moles/Vol] 10 mmol/L Normal 8-15 [facility] Comment on above: Order Comment: Speci men Type: BLOOD SPECIMENOrdering Facility: [facility] Address: [address] [place] [address] Performed By: #### 2 4321-2, 42741-0, 2777-1 ####[facility] LABCLIA [id number] [place] [address] [place] Calcium [Mass/Vol] 8.4 mg/dL Low 8.5-10.2 [facility] Comment on above: Order Comment: Speci men Type: BLOOD SPECIMENOrdering Facility: [facility] Address: [address] [place] [address] Performed By: #### 2 4321-2, 36453-1, 2777-1 ####[facility] LABCLIA [id number] [place] [id number] [place] Chloride [Moles/Vol] 102 mmol/L Normal 98-107 [facility] Comment on above: Order Comment: Speci men Type: BLOOD SPECIMENOrdering Facility: [facility] Address: [address] [place] [address] Performed By: #### 2 4321-2, 32026-8, 2777-1 ####[facility] LABCLIA [id number] [place] [address] [place] CO2 [Moles/Vol] 18 mmol/L Low 22-30 [facility] Comment on above: Order Comment: Speci men Type: BLOOD SPECIMENOrdering Facility: [facility] Address: [address] [place] [address] Performed By: #### 2 4321-2, 90918-6, 2777- ####[facility] LABIA [id number] [place] [address] [place] Creatinine [Mass/Vol] 0.73 mg/dL Normal 0.73-1.22 [facility] Comment on above: Order Comment: Speci men Type: BLOOD SPECIMENOrdering Facility: [facility] Address: [address] [place] [address] Performed By: #### 2 4321-2, 18802-2, 2777- ####[facility] LABIA [id number] [place] [id number] [place] Creatinine and Glomerular filtration rate.predicted panel (S/P/Bld) 105 mL/min/1.73m??? Normal >=60 [facility] Comment on above: Order Comment: Speci men Type: BLOOD SPECIMENOrdering Facility: [facility] Address: [address] [place] [address] Result Comment: Patric mated Glomerular Filtration Rate (eGFR) is calculated using the 2020 CKD-EPI creatinine equation. This equation utilizes serum creatinine, sex, and age as parameters. The creatinine assay has traceable calibration to isotope dilution-mass spectrometry. Refer to KDIGO guidelines for clinical interpretation. In patients with unstable renal function, e.g. those with acute kidney injury, the eGFR may not accurately reflect actual GFR. Performed By: #### 2 4321-2, 34121-9, 2776- ####[facility] LABCLIA [id number] [address] [address] [place] Glucose [Mass/Vol] 181 mg/dL High 74-99 [facility] Comment on above: Order Comment: Ezekiel ramirez Type: BLOOD SPECIMENOrdering Facility: [facility] Address: [address] [place] [address] Result Comment: The [place] Diabetes Association (ADA) provides guidance for cutoff values for fasting glucose and random glucose. The ADA defines fasting as no caloric intake for at least 8 hours. Fasting plasma glucose results between 100 to 125 mg/dL indicate increased risk for diabetes (prediabetes).Fasting plasma glucose results greater than or equal to 126 mg/dL meet the criteria for diagnosis of diabetes. In the absence of unequivocal hyperglycemia, results should be confirmed by repeat testing. In a patient with classic symptoms of hyperglycemia or hyperglycemic crisis, random plasma glucose results greater than or equal to 200 mg/dL meet the criteria for diagnosis of diabetes.Reference: Standards of Medical Care in Diabetes 2016, [place] Diabetes Association. Diabetes Care. 2016.39(Suppl 1). Performed By: #### 2 4321-2, 69187-1, 2776-08 ####[facility] LABIA [id number] [address] [address] [place] Potassium [Moles/Vol] 3.6 mmol/L Low 3.7-5.1 [facility] Comment on above: Order Comment: Ezekiel ramirez Type: BLOOD SPECIMENOrdering Facility: [facility] Address: [address] [place] [address] Performed By: #### 2 4321-2, 41111-0, 277-1 ####[facility] LABCLIA [id number] [address] [address] [place] Sodium [Moles/Vol] 130 mmol/L Low 136-144 [facility] Comment on above: Order Comment: Speci men Type: BLOOD SPECIMENOrdering Facility: [facility] Address: [address] [place] [address] Performed By: #### 2 4321-2, 65861-4, 2777- ####[facility] LABCLIA [id number] [place] [address] [place] Urea nitrogen [Mass/Vol] 9 mg/dL Normal 9-24 [facility] Comment on above: Order Comment: Speci men Type: BLOOD SPECIMENOrdering Facility: [facility] Address: [address] [place] [address] Performed By: #### 2 4321-2, 00975-5, 2777- ####[facility] LABIA [id number] [place] [address] [place] CBC W Auto Differential pane l (Bld)on 11-16-2024 Basophils (Bld) [#/Vol] 0.05 10*3/uL Normal <0.11 [facility] Comment on above: Order Comment: Speci men Type: BLOOD SPECIMENOrdering Facility: [facility] Address: [address] [place] [address] Performed By: #### 5 7021-8 ####[facility] LABCLIA [id number] [place] [id number] [place] Basophils/100 WBC (Bld) 0.8 % Normal C [facility] Comment on above: Order Comment: Speci men Type: BLOOD SPECIMENOrdering Facility: [facility] Address: [address] [place] [address] Performed By: #### 5 7021-8 ####[facility] LABCLIA [id number] [place] [address] [place] Differential cell count method Nom (Bld) Auto Normal [facility] Comment on above: Order Comment: Speci men Type: BLOOD SPECIMENOrdering Facility: [facility] Address: [address] [place] [address] Performed By: #### 5 7021-8 ####[facility] LABCLIA [id number] [place] [address] [place] Eosinophils (Bld) [#/Vol] 0.22 10*3/uL Normal <0.46 [facility] Comment on above: Order Comment: Speci men Type: BLOOD SPECIMENOrdering Facility: [facility] Address: [address] [place] [address] Performed By: #### 5 7021-8 ####[facility] LABCLIA [id number] [place] [address] [place] Eosinophils/100 WBC (Bld) 3.6 % Normal [facility] Comment on above: Order Comment: Speci men Type: BLOOD SPECIMENOrdering Facility: [facility] Address: [address] [place] [address] Performed By: #### 5 7021-8 ####[facility] LABCLIA [id number] [place] [address] [place] Erythrocyte distribution width (RBC) [Ratio] 16.7 % High 11.5-15.0 [facility] Comment on above: Order Comment: Speci men Type: BLOOD SPECIMENOrdering Facility: [facility] Address: [address] [place] [address] Performed By: #### 5 7021-8 ####[facility] LABCLIA [id number] [place] [address] [place] Hematocrit (Bld) [Volume fraction] 24.0 % Low 39.0-51.0 [facility] Comment on above: Order Comment: Speci men Type: BLOOD SPECIMENOrdering Facility: [facility] Address: [address] [place] [address] Performed By: #### 5 7021-8 ####[facility] LABCLIA [id number] [place] [address] [place] Hemoglobin (Bld) [Mass/Vol] 8.3 g/dL Low 13.0-17.0 [facility] Comment on above: Order Comment: Speci men Type: BLOOD SPECIMENOrdering Facility: [facility] Address: [address] [place] [address] Performed By: #### 5 7021-8 ####[facility] LABCLIA [id number] [place] [address] [place] Immature granulocytes (Bld) [#/Vol] 0.05 10*3/uL Normal <0.10 [facility] Comment on above: Order Comment: Speci men Type: BLOOD SPECIMENOrdering Facility: [facility] Address: [address] [place] [address] Performed By: #### 5 7021-8 ####[facility] LABIA [id number] [place] [address] [place] Immature granulocytes/100 WBC (Bld) 0.8 % Normal [facility] Comment on above: Order Comment: Speci men Type: BLOOD SPECIMENOrdering Facility: [facility] Address: [address] [place] [address] Performed By: #### 5 7021-8 ####[facility] LABCLIA [id number] [place] [address] [place] Lymphocytes (Bld) [#/Vol] 0.75 10*3/uL Low 1.00-4.00 [facility] Comment on above: Order Comment: Speci men Type: BLOOD SPECIMENOrdering Facility: [facility] Address: [address] [place] [address] Performed By: #### 5 7021-8 ####[facility] LABCLIA [id number] [place] [address] [place] Lymphocytes/100 WBC (Bld) 12.4 % Normal [facility] Comment on above: Order Comment: Speci men Type: BLOOD SPECIMENOrdering Facility: [facility] Address: [address] [place] [address] Performed By: #### 5 7021-8 ####[facility] LABIA [id number] [place] [address] [place] MCH (RBC) [Entitic mass] 31.9 pg Normal 26.0-34.0 [facility] Comment on above: Order Comment: Speci men Type: BLOOD SPECIMENOrdering Facility: [facility] Address: [address] [place] [address] Performed By: #### 5 7021-8 ####[facility] LABIA [id number] [place] [address] [place] MCHC (RBC) [Mass/Vol] 34.6 g/dL Normal 30.5-36.0 [facility] Comment on above: Order Comment: Speci men Type: BLOOD SPECIMENOrdering Facility: [facility] Address: [address] [place] [address] Performed By: #### 5 7021-8 ####[facility] LABIA [id number] [place] [address] [place] MCV (RBC) [Entitic vol] 92.3 fL Normal 80.0-100.0 C [facility] Comment on above: Order Comment: Speci men Type: BLOOD SPECIMENOrdering Facility: [facility] Address: [address] [place] [address] Performed By: #### 5 7021-8 ####[facility] LABIA [id number] [place] [address] [place] Monocytes (Bld) [#/Vol] 0.68 10*3/uL Normal <0.87 [facility] Comment on above: Order Comment: Speci men Type: BLOOD SPECIMENOrdering Facility: [facility] Address: [address] [place] [address] Performed By: #### 5 7021-8 ####[facility] LABCLIA [id number] [address] [address] [place] Monocytes/100 WBC (Bld) 11.3 % Normal [facility] Comment on above: Order Comment: Speci men Type: BLOOD SPECIMENOrdering Facility: [facility] Address: [address] [place] [address] Performed By: #### 5 7021-8 ####[facility] LABCLIA [id number] [place] [address] [place] Neutrophils (Bld) [#/Vol] 4.28 10*3/uL Normal 1.45-7.50 [facility] Comment on above: Order Comment: Speci men Type: BLOOD SPECIMENOrdering Facility: [facility] Address: [address] [place] [address] Performed By: #### 5 7021-8 ####[facility] LABCLIA [id number] [place] [address] [place] Neutrophils/100 WBC (Bld) 71.1 % Normal [facility] Comment on above: Order Comment: Speci men Type: BLOOD SPECIMENOrdering Facility: [facility] Address: [address] [place] [address] Performed By: #### 5 7021-8 ####[facility] LABCLIA [id number] [address] [address] [place] Nucleated RBC (Bld) [#/Vol] 10*3/uL Normal <0.01 [facility] Comment on above: Order Comment: Speci men Type: BLOOD SPECIMENOrdering Facility: [facility] Address: [address] [place] [address] Performed By: #### 5 7021-8 ####[facility] LABCLIA [id number] [place] [address] [place] Nucleated RBC/100 WBC (Bld) [Ratio] 0.0 /100 WBC Normal [facility] Comment on above: Order Comment: Speci men Type: BLOOD SPECIMENOrdering Facility: [facility] Address: [address] [place] [address] Performed By: #### 5 7021-8 ####[facility] LABCLIA [id number] [place] [address] [place] Platelet mean volume (Bld) [Entitic vol] 11.8 fL Normal 9.0-12.7 [facility] Comment on above: Order Comment: Speci men Type: BLOOD SPECIMENOrdering Facility: [facility] Address: [address] [place] [address] Performed By: #### 5 7021-8 ####[facility] LABIA [id number] [place] [address] [place] Platelets (Bld) [#/Vol] 59 10*3/uL Low 150-400 C [facility] Comment on above: Order Comment: Speci men Type: BLOOD SPECIMENOrdering Facility: [facility] Address: [address] [place] [address] Result Comment: No c lot detected.Results checked and verified. Performed By: #### 5 7021-8 ####[facility] LABCLIA [id number] [place] [address] [place] RBC (Bld) [#/Vol] 2.60 10*6/uL Low 4.20-6.00 [facility] Comment on above: Order Comment: Speci men Type: BLOOD SPECIMENOrdering Facility: [facility] Address: [address] [place] [address] Performed By: #### 5 7021-8 ####[facility] LABIA [id number] [id number] [address] [place] WBC (Bld) [#/Vol] 6.03 10*3/uL Normal 3.70-11.00 [facility] Comment on above: Order Comment: Speci men Type: BLOOD SPECIMENOrdering Facility: [facility] Address: [address] [place] [address] Performed By: #### 5 7021-8 ####[facility] LABCLIA [id number] [address] [place] CONSULT PROGon 11-16-2024 CONSULT PROG Normal [facility] CYTOLOGY NON-GYNon AP DISCLAIMER Normal [facility] Comment on above: Order Comment: Speci men Type: FLUID SPECIMENOrdering Facility: [facility] Address: [address] [place] [address] Result Comment: Shellie pugh Developed Test (LDT) Disclaimer:Performance characteristics of immunohistochemical, immunofluorescent, and chromogenic in-situ hybridization tests have been determined by the performing laboratory within [facility]'s [facility] Pathology and Laboratory Medicine Department ([facility], [facility], [facility], [facility], [facility], [facility], or [facility]) in a manner consistent with CLIA requirements. One or more of these tests may not have been cleared or approved by the FDA. [facility] is regulated under CLIA as qualified to perform high-complexity testing. These tests are used for clinical purposes. These should not be regarded as investigational or for research. Positive and negative controls stain appropriately. Performed By: #### C YTONON ####[facility] LABCLIA [id number] [place] [id number] [place] CASE REPORT Normal [facility] Comment on above: Order Comment: Speci men Type: FLUID SPECIMENOrdering Facility: [facility] Address: [address] [place] [address] Result Comment: [facility] Cytology Report Case: [id number] Provider: Young Cruz MD Collected: 11/16/2024 08:42 AMOrdering Location: [place] [address] Received: 11/16/2024 06:20 PMPathologist: Stefani Mcneal MDSpecimen: Peritoneal Fluid. Performed By: #### C YTONON ####[facility] LABCLIA [id number] [address] [place] CLINICAL HISTORY Cirrhosis with ascites Normal [facility] Comment on above: Order Comment: Speci men Type: FLUID SPECIMENOrdering Facility: [facility] Address: [address] [place] [address] Performed By: #### C YTONON ####[facility] LABCLIA [id number] [address] FINAL DIAGNOSIS Normal [facility] Comment on above: Order Comment: Speci men Type: FLUID SPECIMENOrdering Facility: [facility] Address: [address] [place] [address] Result Comment: A - Peritoneal Fluid Negative for malignant cells. Chronic inflammation.The following cell blocks were associated with this case:A1 Cell Block, Alcohol Fixed at 1223 EDT Performed By: #### C YTONON ####[facility] LABCLIA [id number] [address] FINAL PERFORMING LAB Normal [facility] Comment on above: Order Comment: Speci men Type: FLUID SPECIMENOrdering Facility: [facility] Address: [address] [place] [address] Result Comment: Tech nical component, swimming pool installer screening performed at: [facility], [address] [place] [address] CLIA: [id number] interpretation performed at: [facility], [address] [place] [address] CLIA# [id number] Director: Titi Voss MD Performed By: #### C YTONON ####[facility] LABCLIA [id number] [address] [place] GROSS DESCRIPTION Normal [facility] [place] Comment on above: Order Comment: Speci men Type: FLUID SPECIMENOrdering Facility: [facility] Address: [address] [place] [address] Result Comment: A. P eritoneal Fluid.1450 cc opaque red fluid . ThinPrep and Cell Block prepared. Performed By: #### C YTONON ####[facility] LABCLIA [id number] [place] [address] [facility] [place] Comprehensive Metabolic Prof ilon 11-16-2024 ALB Normal 3.5-5.0 [facility] Comment on above: Result Comment: Canc elled via OM: Order cancelled - Patient discharged Performed By: #### L 500.4050 ####[facility] [address] [facility] [address] ALK PHOS Normal 40-129 [facility] Comment on above: Result Comment: Canc elled via OM: Order cancelled - Patient discharged Performed By: #### L 500.4050 ####[facility] [address] [facility] [address] ALT Normal <=46 [facility] Comment on above: Result Comment: Canc elled via OM: Order cancelled - Patient discharged Performed By: #### L 500.4050 ####[facility] [address] [facility] [address] AST Normal <=37 [facility] Comment on above: Result Comment: Canc elled via OM: Order cancelled - Patient discharged Performed By: #### L 500.4050 ####[facility] [address] [facility] [address] BUN Normal 4-19 [facility] Comment on above: Result Comment: Canc elled via OM: Order cancelled - Patient discharged Performed By: #### L 500.4050 ####[facility] [address] [place], [address] BUN/CRE Normal 10-20 [facility] Comment on above: Result Comment: Canc elled via OM: Order cancelled - Patient discharged Performed By: #### L 500.4050 ####[facility] [address] [place], [address] Calcium Normal 7.6-11.0 [facility] Comment on above: Result Comment: Canc elled via OM: Order cancelled - Patient discharged Performed By: #### L 500.4050 ####[facility] [address] [place], [address] CL Normal 98-108 [facility] Comment on above: Result Comment: Canc elled via OM: Order cancelled - Patient discharged Performed By: #### L 500.4050 ####[facility] [address] [place], [address] CO2 Normal 21.0-32.0 [facility] Comment on above: Result Comment: Canc elled via OM: Order cancelled - Patient discharged Performed By: #### L 500.4050 ####[facility] [address] [place], [address] CREAT,SERUM Normal 0.70-1.20 [facility] Comment on above: Result Comment: Canc elled via OM: Order cancelled - Patient discharged Performed By: #### L 500.4050 ####[facility] [address] [place], [address] eGFR Normal >60 [facility] Comment on above: Result Comment: Canc elled via OM: Order cancelled - Patient discharged Performed By: #### L 500.4050 ####[facility] [address] [place], [address] GAP Normal 5-15 [facility] Comment on above: Result Comment: Canc elled via OM: Order cancelled - Patient discharged Performed By: #### L 500.4050 ####[facility] [address] [place], [address] GLU Normal 70-99 [facility] Comment on above: Result Comment: Canc elled via OM: Order cancelled - Patient discharged Performed By: #### L 500.4050 ####[facility] [address] [place], [address] Potassium Normal 3.3-5.1 [facility] Comment on above: Result Comment: Canc elled via OM: Order cancelled - Patient discharged Performed By: #### L 500.4050 ####[facility] [address] [place], [address] T BILI Normal 0.00-1.30 [facility] Comment on above: Result Comment: Canc elled via OM: Order cancelled - Patient discharged Performed By: #### L 500.4050 ####[facility] [address] [place], [address] T PROT Normal 5.9-8.4 [facility] Comment on above: Result Comment: Canc elled via OM: Order cancelled - Patient discharged Performed By: #### L 500.4050 ####[facility] [address] [place], [address] Comprehensive Metabolic Profil Normal 133-145 [facility] Comment on above: Result Comment: Canc elled via OM: Order cancelled - Patient discharged Performed By: #### L 500.4050 ####[facility] [address] [place], [address] ECG COMPLETEon 11-16-2024 ECG COMPLETE Normal [facility] Fibrinogen PPP-mCncon 2024 Fibrinogen Coag (PPP) [Mass/Vol] 127 mg/dL Low 200-400 [facility] Comment on above: Order Comment: Speci men Type: BLOOD SPECIMENOrdering Facility: [facility] Address: [address] [place] [address] Performed By: #### 3 255-7, 90080-9 ####[facility] LABIA [id number] [place] [address] [place] Hepatic function 2000 panelo n 11-16-2024 Albumin [Mass/Vol] 2.8 g/dL Low 3.9-4.9 [facility] Comment on above: Order Comment: Speci men Type: BLOOD SPECIMENOrdering Facility: [facility] Address: [address] [place] [address] Performed By: #### 2 4321-2, 28447-2, 2777-1 ####[facility] LABIA [id number] [place] [address] [place] ALP [Catalytic activity/Vol] 295 U/L High 38-113 [facility] Comment on above: Order Comment: Speci men Type: BLOOD SPECIMENOrdering Facility: [facility] Address: [address] [place] [address] Performed By: #### 2 4321-2, 86889-0, 2777-1 ####[facility] LABIA [id number] [address] [place] ALT [Catalytic activity/Vol] 38 U/L Normal 10-54 [facility] Comment on above: Order Comment: Speci men Type: BLOOD SPECIMENOrdering Facility: [facility] Address: [address] [place] [address] Performed By: #### 2 4321-2, 60109-2, 2777-1 ####[facility] LABIA [id number] [place] [id number] [place] AST [Catalytic activity/Vol] 88 U/L High 14-40 [facility] Comment on above: Order Comment: Speci men Type: BLOOD SPECIMENOrdering Facility: [facility] Address: [address] [place] [address] Performed By: #### 2 4321-2, 58323-1, 2776-08 ####[facility] LABCLIA [id number] [address] [address] [place] Bilirubin [Mass/Vol] 1.8 mg/dL High 0.2-1.3 [facility] Comment on above: Order Comment: Speci men Type: BLOOD SPECIMENOrdering Facility: [facility] Address: [address] [place] [address] Performed By: #### 2 4321-2, 43530-6, 2776-08 ####[facility] LABCLIA [id number] [place] [address] [place] Bilirubin.conjugated [Mass/Vol] 0.9 mg/dL High <0.3 [facility] Comment on above: Order Comment: Speci men Type: BLOOD SPECIMENOrdering Facility: [facility] Address: [address] [place] [address] Performed By: #### 2 4320-2, 20701-8, 2776-08 ####[facility] LABCLIA [id number] [place] [address] [place] Protein [Mass/Vol] 5.5 g/dL Low 6.3-8.0 [facility] Comment on above: Order Comment: Speci men Type: BLOOD SPECIMENOrdering Facility: [facility] Address: [address] [place] [address] Performed By: #### 2 4320-2, 00194-1, 2776-08 ####[facility] LABCLIA [id number] [address] [address] [place] MANUAL DIFFERENTIAL, BODY FL UIDon 11-16-2024 DIF TTL, BODY FLUID 100 cells counted Normal [facility] Comment on above: Order Comment: Speci men Type: FLUID SPECIMENOrdering Facility: [facility] Address: [address] [place] [address] Performed By: #### C CBF, [id number] ####[facility] LABCLIA [id number] [facility] [address] [place] [address] [place] LYMPH%, BF 47 % High 18-36 [facility] Comment on above: Order Comment: Speci men Type: FLUID SPECIMENOrdering Facility: [facility] Address: [address] [place] [address] Performed By: #### C CBF, [id number] ####[facility] LABCLIA [id number] [facility] [address] [place] [address] [place] MACRO%, BF 6 % Low 64-80 [facility] Comment on above: Order Comment: Speci men Type: FLUID SPECIMENOrdering Facility: [facility] Address: [address] [place] [address] Performed By: #### C CBF, [id number] ####[facility] LABCLIA [id number] [address], [place] [address] [place] MESO %, BF 25 % High 0-2 [facility] Comment on above: Order Comment: Speci men Type: FLUID SPECIMENOrdering Facility: [facility] Address: [address] [place] [address] Performed By: #### C CBF, [id number] ####[facility] LABCLIA [id number] [address], [facility]95 [place] MONO% BF 8 % Normal [facility] [facility] Comment on above: Order Comment: Speci men Type: FLUID SPECIMENOrdering Facility: [facility] Address: [address] [place] [address] Performed By: #### C CBF, [id number] ####[facility] LABCLIA [id number] [address], [facility]95 [place] NEUT%, BF 14 % High 0-1 [facility] Comment on above: Order Comment: Speci men Type: FLUID SPECIMENOrdering Facility: [facility] Address: [address] [place] [address] Performed By: #### C CBF, [id number] ####[facility] LABCLIA [id number] [place] [id number] [place] NURSING PROGon 11-16-2024 NURSING PROG Normal [facility] NURSING PROG Normal [facility] PT panel Coag (PPP)on 2024 INR Coag (PPP) [Relative time] 2.1 {INR} High 0.9-1.3 [facility] Comment on above: Order Comment: Speci men Type: BLOOD SPECIMENOrdering Facility: [facility] Address: [address] [place] [address] Result Comment: Sarah min K Antagonist (VKA) Therapeutic Range: INR 2 to 3 (Target INR of 2.5)Note: For patients treated with VKA drugs, such as warfarin, the [employer] 2012 Guideline recommends a therapeutic INR range of 2 to 3 (target INR of 2.5). This recommendation includes high-risk patients with antiphospholipid syndrome with previous arterial or venous thromboembolism, current-generation mechanical or bioprosthetic aortic heart valve replacement.Note: Patients with mechanical aortic valve replacement and additional risk factors for thromboembolic events (atrial fibrillation, previous thromboembolism, LV dysfunction, hypercoagulable conditions) or an older generation mechanical AVR (i.e., ball in-Cage) or any mechanical MVR should have a INR therapeutic range of 2.5 to 3.5 (target INR of 3).Tammi GH, et al. Chest 2012, 141:7S-47SNishimura RA, et al. [facility] 2017, 70: 252-289 Performed By: #### 3 4528-0 ####[facility] LABCLIA [id number] [address] [address] [place] PT Coag (PPP) [Time] 21.5 s High 9.7-13.0 [facility] Comment on above: Order Comment: Ezekiel ramirez Type: BLOOD SPECIMENOrdering Facility: [facility] Address: [address] [place] [address] Performed By: #### 3 4528-0 ####[facility] LABCLIA [id number] [place] [address] [place] INR Coag (PPP) [Relative time] 2.0 {INR} High 0.9-1.3 [facility] Comment on above: Order Comment: Ezekiel ramirez Type: BLOOD SPECIMENOrdering Facility: [facility] Address: [address] [place] [address] Result Comment: Sarah min K Antagonist (VKA) Therapeutic Range: INR 2 to 3 (Target INR of 2.5)Note: For patients treated with VKA drugs, such as warfarin, the [place] [employer] 2012 Guideline recommends a therapeutic INR range of 2 to 3 (target INR of 2.5). This recommendation includes high-risk patients with antiphospholipid syndrome with previous arterial or venous thromboembolism, current-generation mechanical or bioprosthetic aortic heart valve replacement.Note: Patients with mechanical aortic valve replacement and additional risk factors for thromboembolic events (atrial fibrillation, previous thromboembolism, LV dysfunction, hypercoagulable conditions) or an older generation mechanical AVR (i.e., ball in-Cage) or any mechanical MVR should have a INR therapeutic range of 2.5 to 3.5 (target INR of 3).Tammi GH, et al. Chest 2012, 141:7S-47SNishimura RA, et al. [facility] 2017, 70: 252-289 Performed By: #### 3 255-7, 38575-1 ####[facility] [id number] [place] [id number] [place] PT Coag (PPP) [Time] 20.3 s High 9.7-13.0 [facility] Comment on above: Order Comment: Ezekiel ramirez Type: BLOOD SPECIMENOrdering Facility: [facility] Address: [address] [place] [address] Performed By: #### 3 255-7, 91633-2 ####[facility] LABIA [id number] [place] [id number] [place] Phosphate SerPl-mCncon 11-16 Phosphate [Mass/Vol] 2.3 mg/dL Low 2.7-4.8 [facility] Comment on above: Order Comment: Speci men Type: BLOOD SPECIMENOrdering Facility: [facility] Address: [address] [place] [address] Performed By: #### 2 4321-2, 56727-7, 2777-1 ####[facility] LABCLIA [id number] [place] [address] [place] Prot Fld-mCncon 11-16-2024 Protein (Body fld) [Mass/Vol] 0.5 g/dL Normal See Comment [facility] Comment on above: Order Comment: Speci men Type: FLUID SPECIMENOrdering Facility: [facility] Address: [address] [place] [address] Result Comment: Sero us fluids: Effusions are the accumulation of clinically detected fluid in any of the serous cavities. Effusions are further into transudates and exudates, which aid in determining the etiology of the effusion.Transudate: Body fluid total protein measurement < 3.0 g/dL. A ratio of serous fluid total protein to a concurrent serum total protein < 0.5 indicates a transudate.Exudate: Body fluid total protein measurement >= 3.0 g/dL. A ratio of serous fluid total protein to a concurrent serum total protein >= 0.5 indicates an exudate.Reference: 1. CLSI. Analysis of Body Fluids in Clinical Chemistry Approved Guideline. CLSI document C49A. PAULETTE Diaz: Clinical Laboratory Standards [place]: 2007. Performed By: #### 1 795-4, 2881-1, 1747-5 ####[facility] LABIA [id number] [place] [id number] [place] THERAPY NTon 11-16-2024 THERAPY NT Normal [facility] THERAPY NT Normal [facility] BLOOD TB SCREENon 11-15-2024 M. tuberculosis tuberculin stim IFN-g Ql (Bld) Indeterminate Normal [facility] Comment on above: Order Comment: Speci men Type: BLOOD SPECIMENOrdering Facility: [facility] Address: [address] [place] [address] Performed By: #### I NFTBP ####[facility] LABCLIA [id number] [place] [address] [place] MITOGEN MINUS NIL 0.25 IU/mL Low >=0.50 [facility] Comment on above: Order Comment: Speci men Type: BLOOD SPECIMENOrdering Facility: [facility] Address: [address] [place] [address] Performed By: #### I NFTBP ####[facility] LABCLIA [id number] [place] [address] [place] TB GAMMA INTERPRETATION Normal C [facility] Comment on above: Order Comment: Speci men Type: BLOOD SPECIMENOrdering Facility: [facility] Address: [address] [place] [address] Performed By: #### I NFTBP ####[facility] LABCLIA [id number] [address] [place] TB NIL 0.01 IU/mL Normal <=8.00 [facility] Comment on above: Order Comment: Speci men Type: BLOOD SPECIMENOrdering Facility: [facility] Address: [address] [place] [address] Performed By: #### I NFTBP ####[facility] LABCLIA [id number] [place] [address] [place] TB1 AG MINUS NIL 0.00 IU/mL Normal <0.35 [facility] Comment on above: Order Comment: Speci men Type: BLOOD SPECIMENOrdering Facility: [facility] Address: [address] [place] [address] Performed By: #### I NFTBP ####[facility] LABCLIA [id number] [place] [address] [place] TB2 AG MINUS NIL 0.01 IU/mL Normal <0.35 [facility] Comment on above: Order Comment: Speci men Type: BLOOD SPECIMENOrdering Facility: [facility] Address: [address] [place] [address] Performed By: #### I NFTBP ####[facility] LABCLIA [id number] [place] [address] [place] CASE MANAGEMon 11-15-2024 CASE MANAGEM Normal [facility] CASE MANAGEM Normal [facility] CBC W Auto Differential pane l (Bld)on 11-15-2024 Basophils (Bld) [#/Vol] 0.05 10*3/uL Normal <0.11 [facility] Comment on above: Order Comment: Speci men Type: BLOOD SPECIMENOrdering Facility: [facility] Address: [address] [place] [address] Performed By: #### 5 7021-8 ####[facility] LABCLIA [id number] [place] [address] [place] Basophils/100 WBC (Bld) 0.8 % Normal [facility] Comment on above: Order Comment: Speci men Type: BLOOD SPECIMENOrdering Facility: [facility] Address: [address] [place] [address] Performed By: #### 5 7021-8 ####[facility] LABCLIA [id number] [place] [address] [place] Differential cell count method Nom (Bld) Auto Normal [facility] Comment on above: Order Comment: Speci men Type: BLOOD SPECIMENOrdering Facility: [facility] Address: [address] [place] [address] Performed By: #### 5 7021-8 ####[facility] LABCLIA [id number] [place] [address] [place] Eosinophils (Bld) [#/Vol] 0.28 10*3/uL Normal <0.46 [facility] Comment on above: Order Comment: Speci men Type: BLOOD SPECIMENOrdering Facility: [facility] Address: [address] [place] [address] Performed By: #### 5 7021-8 ####[facility] LABCLIA [id number] [address], [facility]95 [place] Eosinophils/100 WBC (Bld) 4.6 % Normal [facility] Comment on above: Order Comment: Speci men Type: BLOOD SPECIMENOrdering Facility: [facility] Address: [address] [place] [address] Performed By: #### 5 7021-8 ####[facility] LABCLIA [id number] [address], [place] [address] [place] Erythrocyte distribution width (RBC) [Ratio] 16.8 % High 11.5-15.0 [facility] Comment on above: Order Comment: Speci men Type: BLOOD SPECIMENOrdering Facility: [facility] Address: [address] [place] [address] Performed By: #### 5 7021-8 ####[facility] LABIA [id number] [address], [place] [address] [place] Hematocrit (Bld) [Volume fraction] 22.9 % Low 39.0-51.0 [facility] Comment on above: Order Comment: Speci men Type: BLOOD SPECIMENOrdering Facility: [facility] Address: [address] [place] [address] Performed By: #### 5 7021-8 ####[facility] LABCLIA [id number] [address], [facility]95 [place] Hemoglobin (Bld) [Mass/Vol] 7.6 g/dL Low 13.0-17.0 [facility] Comment on above: Order Comment: Speci men Type: BLOOD SPECIMENOrdering Facility: [facility] Address: [address] [place] [address] Performed By: #### 5 7021-8 ####[facility] LABIA [id number] [place] [id number] [place] Immature granulocytes (Bld) [#/Vol] 0.03 10*3/uL Normal <0.10 [facility] Comment on above: Order Comment: Speci men Type: BLOOD SPECIMENOrdering Facility: [facility] Address: [address] [place] [address] Performed By: #### 5 7021-8 ####[facility] LABCLIA [id number] [place] [address] [place] Immature granulocytes/100 WBC (Bld) 0.5 % Normal [facility] Comment on above: Order Comment: Speci men Type: BLOOD SPECIMENOrdering Facility: [facility] Address: [address] [place] [address] Performed By: #### 5 7021-8 ####[facility] LABCLIA [id number] [place] [address] [place] Lymphocytes (Bld) [#/Vol] 0.70 10*3/uL Low 1.00-4.00 [facility] Comment on above: Order Comment: Speci men Type: BLOOD SPECIMENOrdering Facility: [facility] Address: [address] [place] [address] Performed By: #### 5 7021-8 ####[facility] LABCLIA [id number] [place] [address] [place] Lymphocytes/100 WBC (Bld) 11.5 % Normal [facility] Comment on above: Order Comment: Speci men Type: BLOOD SPECIMENOrdering Facility: [facility] Address: [address] [place] [address] Performed By: #### 5 7021-8 ####[facility] LABCLIA [id number] [place] [address] [place] MCH (RBC) [Entitic mass] 30.6 pg Normal 26.0-34.0 [facility] Comment on above: Order Comment: Speci men Type: BLOOD SPECIMENOrdering Facility: [facility] Address: [address] [place] [address] Performed By: #### 5 7021-8 ####[facility] LABCLIA [id number] [place] [address] [place] MCHC (RBC) [Mass/Vol] 33.2 g/dL Normal 30.5-36.0 [facility] Comment on above: Order Comment: Speci men Type: BLOOD SPECIMENOrdering Facility: [facility] Address: [address] [place] [address] Performed By: #### 5 7021-8 ####[facility] LABCLIA [id number] [place] [address] [place] MCV (RBC) [Entitic vol] 92.3 fL Normal 80.0-100.0 C [facility] Comment on above: Order Comment: Speci men Type: BLOOD SPECIMENOrdering Facility: [facility] Address: [address] [place] [address] Performed By: #### 5 7021-8 ####[facility] LABIA [id number] [place] [address] [place] Monocytes (Bld) [#/Vol] 0.73 10*3/uL Normal <0.87 [facility] Comment on above: Order Comment: Speci men Type: BLOOD SPECIMENOrdering Facility: [facility] Address: [address] [place] [address] Performed By: #### 5 7021-8 ####[facility] LABCLIA [id number] [place] [address] [place] Monocytes/100 WBC (Bld) 12.0 % Normal C [facility] Comment on above: Order Comment: Speci men Type: BLOOD SPECIMENOrdering Facility: [facility] Address: [address] [place] [address] Performed By: #### 5 7021-8 ####[facility] LABCLIA [id number] [address] [address] [place] Neutrophils (Bld) [#/Vol] 4.30 10*3/uL Normal 1.45-7.50 [facility] Comment on above: Order Comment: Speci men Type: BLOOD SPECIMENOrdering Facility: [facility] Address: [address] [place] [address] Performed By: #### 5 7021-8 ####[facility] LABCLIA [id number] [facility] [place] [address] [place] Neutrophils/100 WBC (Bld) 70.6 % Normal [facility] Comment on above: Order Comment: Speci men Type: BLOOD SPECIMENOrdering Facility: [facility] Address: [address] [place] [address] Performed By: #### 5 7021-8 ####[facility] LABCLIA [id number] [place] [address] [place] Nucleated RBC (Bld) [#/Vol] 10*3/uL Normal <0.01 [facility] Comment on above: Order Comment: Speci men Type: BLOOD SPECIMENOrdering Facility: [facility] Address: [address] [place] [address] Performed By: #### 5 7021-8 ####[facility] LABCLIA [id number] [place] [address] [place] Nucleated RBC/100 WBC (Bld) [Ratio] 0.0 /100 WBC Normal [facility] Comment on above: Order Comment: Speci men Type: BLOOD SPECIMENOrdering Facility: [facility] Address: [address] [place] [address] Performed By: #### 5 7021-8 ####[facility] LABCLIA [id number] [place] [id number] [place] Platelet mean volume (Bld) [Entitic vol] 12.2 fL Normal 9.0-12.7 [facility] Comment on above: Order Comment: Speci men Type: BLOOD SPECIMENOrdering Facility: [facility] Address: [address] [place] [address] Performed By: #### 5 7021-8 ####[facility] LABIA [id number] [place] [address] [place] Platelets (Bld) [#/Vol] 53 10*3/uL Low 150-400 C [facility] Comment on above: Order Comment: Speci men Type: BLOOD SPECIMENOrdering Facility: [facility] Address: [address] [place] [address] Performed By: #### 5 7021-8 ####[facility] LABIA [id number] [place] [address] [place] RBC (Bld) [#/Vol] 2.48 10*6/uL Low 4.20-6.00 [facility] Comment on above: Order Comment: Speci men Type: BLOOD SPECIMENOrdering Facility: [facility] Address: [address] [place] [address] Performed By: #### 5 7021-8 ####[facility] [id number] [place] [address] [place] WBC (Bld) [#/Vol] 6.09 10*3/uL Normal 3.70-11.00 [facility] Comment on above: Order Comment: Speci men Type: BLOOD SPECIMENOrdering Facility: [facility] Address: [address] [place] [address] Performed By: #### 5 7021-8 ####[facility] LABIA [id number] [place] [id number] [place] CBC W/Diff, Automatedon 11-02 Absolute Neut Normal 2.0-7.7 [facility] Comment on above: Result Comment: Canc elled via OM: Order cancelled - Patient discharged Performed By: #### L 500.2500, L100.0100 ####[facility] [address] [place], [address] HCT Normal 40-54 [facility] Comment on above: Result Comment: Canc elled via OM: Order cancelled - Patient discharged Performed By: #### L 500.2500, L100.0100 ####[facility] [address] [place], [address] HGB Normal 13.0-16.5 [facility] Comment on above: Result Comment: Canc elled via OM: Order cancelled - Patient discharged Performed By: #### L 500.2500, L100.0100 ####[facility] [address] [place], [address] MCH Normal 27.0-32.0 [facility] Comment on above: Result Comment: Canc elled via OM: Order cancelled - Patient discharged Performed By: #### L 500.2500, L100.0100 ####[facility] [address] [place], [address] MCHC Normal 32-36 [facility] Comment on above: Result Comment: Canc elled via OM: Order cancelled - Patient discharged Performed By: #### L 500.2500, L100.0100 ####[facility] [address] [place], [address] MCV Normal 80-94 [facility] Comment on above: Result Comment: Canc elled via OM: Order cancelled - Patient discharged Performed By: #### L 500.2500, L100.0100 ####[facility] [address] [place], [address] NEUT% Normal 47-70 [facility] Comment on above: Result Comment: Canc elled via OM: Order cancelled - Patient discharged Performed By: #### L 500.2500, L100.0100 ####[facility] [address] [place], [address] PLT Normal 150-450 [facility] Comment on above: Result Comment: Canc elled via OM: Order cancelled - Patient discharged Performed By: #### L 500.2500, L100.0100 ####[facility] [address] [place], [address] RBC Normal 4.6-6.2 [facility] Comment on above: Result Comment: Canc elled via OM: Order cancelled - Patient discharged Performed By: #### L 500.2500, L100.0100 ####[facility] [address] [place], [address] RDW CV Normal 11.6-14.6 [facility] Comment on above: Result Comment: Canc elled via OM: Order cancelled - Patient discharged Performed By: #### L 500.2500, L100.0100 ####[facility] [address] [place], [address] RDW SD Normal 35.1-43.9 [facility] Comment on above: Result Comment: Canc elled via OM: Order cancelled - Patient discharged Performed By: #### L 500.2500, L100.0100 ####[facility] [address] [place], [address] WBC Normal 4.4-11.0 [facility] Comment on above: Result Comment: Canc elled via OM: Order cancelled - Patient discharged Performed By: #### L 500.2500, L100.0100 ####[facility] [address] [place], [address] CNOVon 11-15-2024 CNOV Normal [facility] CONSULTon 11-15-2024 CONSULT Normal [facility] CONSULT PROGon 11-15-2024 CONSULT PROG Normal [facility] Comprehensive Metabolic Prof ilon 11-15-2024 ALB Normal 3.5-5.0 [facility] Comment on above: Result Comment: Canc elled via OM: Order cancelled - Patient discharged Performed By: #### L 500.4050 ####[facility] [address] [place], [address] ALK PHOS Normal 40-129 [facility] Comment on above: Result Comment: Canc elled via OM: Order cancelled - Patient discharged Performed By: #### L 500.4050 ####[facility] [address] [place], [address] ALT Normal <=46 [facility] Comment on above: Result Comment: Canc elled via OM: Order cancelled - Patient discharged Performed By: #### L 500.4050 ####[facility] [address] [place], [address] AST Normal <=37 [facility] Comment on above: Result Comment: Canc elled via OM: Order cancelled - Patient discharged Performed By: #### L 500.4050 ####[facility] [address] [place], [address] BUN Normal 4-19 [facility] Comment on above: Result Comment: Canc elled via OM: Order cancelled - Patient discharged Performed By: #### L 500.4050 ####[facility] [address] [place], [address] Result Comment: Canc elled via OM: MD Ordered Performed By: #### L 500.2500, L100.0100 ####[facility] [address] [place], [address] BUN/CRE Normal 10-20 [facility] Comment on above: Result Comment: Canc elled via OM: Order cancelled - Patient discharged Performed By: #### L 500.4050 ####[facility] [address] [place], [address] Result Comment: Canc elled via OM: MD Ordered Performed By: #### L 500.2500, L100.0100 ####[facility] [address] [place], [address] Calcium Normal 7.6-11.0 [facility] Comment on above: Result Comment: Canc elled via OM: Order cancelled - Patient discharged Performed By: #### L 500.4050 ####[facility] [address] [place], [address] Result Comment: Canc elled via OM: MD Ordered Performed By: #### L 500.2500, L100.0100 ####[facility] [address] [place], [address] CL Normal 98-108 [facility] Comment on above: Result Comment: Canc elled via OM: Order cancelled - Patient discharged Performed By: #### L 500.4050 ####[facility] [address] [place], [address] Result Comment: Canc elled via OM: MD Ordered Performed By: #### L 500.2500, L100.0100 ####[facility] [address] [place], [address] CO2 Normal 21.0-32.0 [facility] Comment on above: Result Comment: Canc elled via OM: Order cancelled - Patient discharged Performed By: #### L 500.4050 ####[facility] [address] [place], [address] Result Comment: Canc elled via OM: MD Ordered Performed By: #### L 500.2500, L100.0100 ####[facility] [address] [place], [address] CREAT,SERUM Normal 0.70-1.20 [facility] Comment on above: Result Comment: Canc elled via OM: Order cancelled - Patient discharged Performed By: #### L 500.4050 ####[facility] [address] [place], [address] Result Comment: Canc elled via OM: MD Ordered Performed By: #### L 500.2500, L100.0100 ####[facility] [address] [place], [address] eGFR Normal >60 [facility] Comment on above: Result Comment: Canc elled via OM: Order cancelled - Patient discharged Performed By: #### L 500.4050 ####[facility] [address] [place], [address] Result Comment: Canc elled via OM: MD Ordered Performed By: #### L 500.2500, L100.0100 ####[facility] [address] [place], [address] GAP Normal 5-15 [facility] Comment on above: Result Comment: Canc elled via OM: Order cancelled - Patient discharged Performed By: #### L 500.4050 ####[facility] [address] [place], [address] Result Comment: Canc elled via OM: MD Ordered Performed By: #### L 500.2500, L100.0100 ####[facility] [address] [place], [address] GLU Normal 70-99 [facility] Comment on above: Result Comment: Canc elled via OM: Order cancelled - Patient discharged Performed By: #### L 500.4050 ####[facility] [address] [place], [address] Result Comment: Canc elled via OM: MD Ordered Performed By: #### L 500.2500, L100.0100 ####[facility] [address] [place], [address] Potassium Normal 3.3-5.1 [facility] Comment on above: Result Comment: Canc elled via OM: Order cancelled - Patient discharged Performed By: #### L 500.4050 ####[facility] [address] [place], [address] Result Comment: Canc elled via OM: MD Ordered Performed By: #### L 500.2500, L100.0100 ####[facility] [address] [place], [address] T BILI Normal 0.00-1.30 [facility] Comment on above: Result Comment: Canc elled via OM: Order cancelled - Patient discharged Performed By: #### L 500.4050 ####[facility] [address] [place], [address] T PROT Normal 5.9-8.4 [facility] Comment on above: Result Comment: Canc elled via OM: Order cancelled - Patient discharged Performed By: #### L 500.4050 ####[facility] [address] [place], [address] Comprehensive Metabolic Profil Normal 133-145 [facility] Comment on above: Result Comment: Canc elled via OM: Order cancelled - Patient discharged Performed By: #### L 500.4050 ####[facility] [address] [place], [address] Result Comment: Canc elled via OM: MD Ordered Performed By: #### L 500.2500, L100.0100 ####[facility] [address] [place], [address] Fibrinogen PPP-mCncon 2024 Fibrinogen Coag (PPP) [Mass/Vol] 123 mg/dL Low 200-400 [facility] Comment on above: Order Comment: Speci men Type: BLOOD SPECIMENOrdering Facility: [facility] Address: [address] [place] [address] Performed By: #### 3 255-7, 40449-5 ####[facility] LABCLIA [id number] [address] [place] [address] [place] Hepatic function 2000 panelo n 11-15-2024 Albumin [Mass/Vol] 2.8 g/dL Low 3.9-4.9 [facility] Comment on above: Order Comment: Speci men Type: BLOOD SPECIMENOrdering Facility: [facility] Address: [address] [place] [address] Performed By: #### 2 4325-3, 75546-7 ####[facility] LABCLIA [id number] [address] [place] [address] [place] ALP [Catalytic activity/Vol] 277 U/L High 38-113 [facility] Comment on above: Order Comment: Speci men Type: BLOOD SPECIMENOrdering Facility: [facility] Address: [address] [place] [address] Performed By: #### 2 4325-3, 28653-1 ####[facility] LABCLIA [id number] [address] [place] [address] [place] ALT [Catalytic activity/Vol] 36 U/L Normal 10-54 [facility] Comment on above: Order Comment: Speci men Type: BLOOD SPECIMENOrdering Facility: [facility] Address: [address] [place] [address] Performed By: #### 2 4325-3, 35546-6 ####[facility] LABCLIA [id number] [address] [place] [address] [place] AST [Catalytic activity/Vol] 87 U/L High 14-40 [facility] Comment on above: Order Comment: Speci men Type: BLOOD SPECIMENOrdering Facility: [facility] Address: [address] [place] [address] Performed By: #### 2 4325-3, 71861-5 ####[facility] LABCLIA [id number] [address] [place] [address] [place] Bilirubin [Mass/Vol] 1.6 mg/dL High 0.2-1.3 [facility] Comment on above: Order Comment: Speci men Type: BLOOD SPECIMENOrdering Facility: [facility] Address: [address] [place] [address] Performed By: #### 2 4325-3, 12692-1 ####[facility] LABIA [id number] [place] [address] [place] Bilirubin.conjugated [Mass/Vol] 0.9 mg/dL High <0.3 [facility] Comment on above: Order Comment: Speci men Type: BLOOD SPECIMENOrdering Facility: [facility] Address: [address] [place] [address] Performed By: #### 2 4325-3, 05403-6 ####[facility] LABIA [id number] [place] [address] [place] Protein [Mass/Vol] 5.4 g/dL Low 6.3-8.0 [facility] Comment on above: Order Comment: Speci men Type: BLOOD SPECIMENOrdering Facility: [facility] Address: [address] [place] [address] Performed By: #### 2 4325-3, 01857-3 ####[facility] LABIA [id number] [place] [address] [place] PT panel Coag (PPP)on 2024 INR Coag (PPP) [Relative time] 1.8 {INR} High 0.9-1.3 [facility] Comment on above: Order Comment: Speci men Type: BLOOD SPECIMENOrdering Facility: [facility] Address: [address] [place] [address] Result Comment: Sarah min K Antagonist (VKA) Therapeutic Range: INR 2 to 3 (Target INR of 2.5)Note: For patients treated with VKA drugs, such as warfarin, the [place] [employer] 2012 Guideline recommends a therapeutic INR range of 2 to 3 (target INR of 2.5). This recommendation includes high-risk patients with antiphospholipid syndrome with previous arterial or venous thromboembolism, current-generation mechanical or bioprosthetic aortic heart valve replacement.Note: Patients with mechanical aortic valve replacement and additional risk factors for thromboembolic events (atrial fibrillation, previous thromboembolism, LV dysfunction, hypercoagulable conditions) or an older generation mechanical AVR (i.e., ball in-Cage) or any mechanical MVR should have a INR therapeutic range of 2.5 to 3.5 (target INR of 3).Tammi GH, et al. Chest 2012, 141:7S-47SHector RA, et al. [facility] 2017, 70: 252-289 Performed By: #### 3 255-7, 85137-8 ####[facility] LABIA [id number] [place] [address] [place] PT Coag (PPP) [Time] 18.9 s High 9.7-13.0 [facility] Comment on above: Order Comment: Speci men Type: BLOOD SPECIMENOrdering Facility: [facility] Address: [address] [place] [address] Performed By: #### 3 255-7, 68852-6 ####[facility] LABIA [id number] [place] [address] [place] Renal function 2000 panelon 11-15-2024 Albumin [Mass/Vol] 2.9 g/dL Low 3.9-4.9 [facility] Comment on above: Order Comment: Ezekiel ramirez Type: BLOOD SPECIMENOrdering Facility: [facility] Address: [address] [place] [address] Performed By: #### 2 4325-3, 73079-5 ####[facility] LABIA [id number] [place] [address] [place] Anion gap [Moles/Vol] 15 mmol/L Normal 8-15 [facility] Comment on above: Order Comment: Ezekiel men Type: BLOOD SPECIMENOrdering Facility: [facility] Address: [address] [place] [address] Performed By: #### 2 4325-3, 65595-0 ####[facility] LABCLIA [id number] [facility] [address] [place] [address] [place] Calcium [Mass/Vol] 8.4 mg/dL Low 8.5-10.2 [facility] Comment on above: Order Comment: Speci men Type: BLOOD SPECIMENOrdering Facility: [facility] Address: [address] [place] [address] Performed By: #### 2 4325-3, 91330-8 ####[facility] LABCLIA [id number] [facility] [place] [id number] [place] Chloride [Moles/Vol] 99 mmol/L Normal 98-107 [facility] Comment on above: Order Comment: Speci men Type: BLOOD SPECIMENOrdering Facility: [facility] Address: [address] [place] [address] Performed By: #### 2 3, 83841-2 ####[facility] LABCLIA [id number] [facility] [place] [id number] [place] CO2 [Moles/Vol] 14 mmol/L Low 22-30 [facility] Comment on above: Order Comment: Speci men Type: BLOOD SPECIMENOrdering Facility: [facility] Address: [address] [place] [address] Performed By: #### 2 43253, 05658-6 ####[facility] LABCLIA [id number] [facility] [place] [id number] [place] Creatinine [Mass/Vol] 0.80 mg/dL Normal 0.73-1.22 [facility] Comment on above: Order Comment: Speci men Type: BLOOD SPECIMENOrdering Facility: [facility] Address: [address] [place] [address] Performed By: #### 2 4325-3, 58521-9 ####[facility] LABCLIA [id number] [facility] [place] [id number] [place] Creatinine and Glomerular filtration rate.predicted panel (S/P/Bld) 103 mL/min/1.73m??? Normal >=60 [facility] Comment on above: Order Comment: Ezekiel ramirez Type: BLOOD SPECIMENOrdering Facility: [facility] Address: [address] [place] [address] Result Comment: Patric mated Glomerular Filtration Rate (eGFR) is calculated using the 2020 CKD-EPI creatinine equation. This equation utilizes serum creatinine, sex, and age as parameters. The creatinine assay has traceable calibration to isotope dilution-mass spectrometry. Refer to KDIGO guidelines for clinical interpretation. In patients with unstable renal function, e.g. those with acute kidney injury, the eGFR may not accurately reflect actual GFR. Performed By: #### 2 4325-3, 51231-3 ####[facility] LABCLIA [id number] [place] [address] [place] Glucose [Mass/Vol] 272 mg/dL High 74-99 [facility] Comment on above: Order Comment: Ezekiel ramirez Type: BLOOD SPECIMENOrdering Facility: [facility] Address: [address] [place] [address] Result Comment: The [place] Diabetes Association (ADA) provides guidance for cutoff values for fasting glucose and random glucose. The ADA defines fasting as no caloric intake for at least 8 hours. Fasting plasma glucose results between 100 to 125 mg/dL indicate increased risk for diabetes (prediabetes).Fasting plasma glucose results greater than or equal to 126 mg/dL meet the criteria for diagnosis of diabetes. In the absence of unequivocal hyperglycemia, results should be confirmed by repeat testing. In a patient with classic symptoms of hyperglycemia or hyperglycemic crisis, random plasma glucose results greater than or equal to 200 mg/dL meet the criteria for diagnosis of diabetes.Reference: Standards of Medical Care in Diabetes 2016, [place] [employer]. Diabetes Care. 2016.39(Suppl 1). Performed By: #### 2 4325-3, 16237-0 ####[facility] LABCLIA [id number] [place] [id number] [place] Phosphate [Mass/Vol] 2.2 mg/dL Low 2.7-4.8 [facility] Comment on above: Order Comment: Speci men Type: BLOOD SPECIMENOrdering Facility: [facility] Address: [address] [place] [address] Performed By: #### 2 4325-3, 48305-3 ####[facility] LABCLIA [id number] [address] [address] [place] Potassium [Moles/Vol] 3.8 mmol/L Normal 3.7-5.1 [facility] Comment on above: Order Comment: Speci men Type: BLOOD SPECIMENOrdering Facility: [facility] Address: [address] [place] [address] Performed By: #### 2 4325-3, 03339-9 ####[facility] LABCLIA [id number] [place] [id number] [place] Sodium [Moles/Vol] 128 mmol/L Low 136-144 [facility] Comment on above: Order Comment: Speci men Type: BLOOD SPECIMENOrdering Facility: [facility] Address: [address] [place] [address] Performed By: #### 2 4325-3, 02195-2 ####[facility] LABCLIA [id number] [place] [id number] [place] Urea nitrogen [Mass/Vol] 11 mg/dL Normal 9-24 [facility] Comment on above: Order Comment: Speci men Type: BLOOD SPECIMENOrdering Facility: [facility] Address: [address] [place] [address] Performed By: #### 2 4325-3, 81607-4 ####[facility] LABCLIA [id number] [place] [id number] [place] SEPSIS LACTATEon 11-15-2024 Lactate [Moles/Vol] 3.2 mmol/L High <=2.0 [facility] Comment on above: Order Comment: Speci men Type: BLOOD SPECIMENOrdering Facility: [facility] Address: [address] [place] [address] Performed By: #### S LACT ####[facility] LABCLIA [id number] [address] [address] [place] SOCIAL WORKon 11-15-2024 SOCIAL WORK Normal [facility] THERAPY NTon 11-15-2024 THERAPY NT Normal [facility] THERAPY NT Normal [facility] TYPE + SCREENon 11-15-2024 ABO O Normal [facility] Comment on above: Order Comment: Speci men Type: BLOOD SPECIMENOrdering Facility: [facility] Address: [address] [place] [address] Performed By: #### T SCR ####[facility] BLOOD BANKCLIA [id number] [place] [address] [place] Rh Nom (Bld) Positive Normal [facility] Comment on above: Order Comment: Speci men Type: BLOOD SPECIMENOrdering Facility: [facility] Address: [address] [place] [address] Performed By: #### T SCR ####[facility] BLOOD BANKIA [id number] [place] [address] [place] TYPE AND SCREEN EXPIRATION 11/18/2024 23:59 Normal [facility] Comment on above: Order Comment: Speci men Type: BLOOD SPECIMENOrdering Facility: [facility] Address: [address] [place] [address] Performed By: #### T SCR ####[facility] BLOOD BANKIA [id number] [address] [address] [place] US ASCITES SURVEYon 11-16-19 US ASCITES SURVEY Normal [facility] Basic Metabolic Profile (BMP )on 11-14-2024 BUN Normal 4-19 [facility] Comment on above: Result Comment: Canc elled via OM: MD Ordered Performed By: #### L 500.2500, L100.0100 ####[facility] [address] [place], [address] Result Comment: Canc elled via OM: Order cancelled - Patient discharged Performed By: #### L 500.4050 ####[facility] [address] [place], [address] BUN/CRE Normal 10-20 [facility] Comment on above: Result Comment: Canc elled via OM: MD Ordered Performed By: #### L 500.2500, L100.0100 ####[facility] [address] [place], [address] Result Comment: Canc elled via OM: Order cancelled - Patient discharged Performed By: #### L 500.4050 ####[facility] [address] [place], [address] Calcium Normal 7.6-11.0 [facility] Comment on above: Result Comment: Canc elled via OM: MD Ordered Performed By: #### L 500.2500, L100.0100 ####[facility] [address] [place], [address] Result Comment: Canc elled via OM: Order cancelled - Patient discharged Performed By: #### L 500.4050 ####[facility] [address] [place], [address] CL Normal 98-108 [facility] Comment on above: Result Comment: Canc elled via OM: MD Ordered Performed By: #### L 500.2500, L100.0100 ####[facility] [address] [place], [address] Result Comment: Canc elled via OM: Order cancelled - Patient discharged Performed By: #### L 500.4050 ####[facility] [address] [place], [address] CO2 Normal 21.0-32.0 [facility] Comment on above: Result Comment: Canc elled via OM: MD Ordered Performed By: #### L 500.2500, L100.0100 ####[facility] [address] [place], [address] Result Comment: Canc elled via OM: Order cancelled - Patient discharged Performed By: #### L 500.4050 ####[facility] [address] [place], [address] CREAT,SERUM Normal 0.70-1.20 [facility] Comment on above: Result Comment: Canc elled via OM: MD Ordered Performed By: #### L 500.2500, L100.0100 ####[facility] [address] [place], [address] Result Comment: Canc elled via OM: Order cancelled - Patient discharged Performed By: #### L 500.4050 ####[facility] [address] [place], [address] eGFR Normal >60 [facility] Comment on above: Result Comment: Canc elled via OM: MD Ordered Performed By: #### L 500.2500, L100.0100 ####[facility] [address] [place], [address] Result Comment: Canc elled via OM: Order cancelled - Patient discharged Performed By: #### L 500.4050 ####[facility] [address] [place], [address] GAP Normal 5-15 [facility] Comment on above: Result Comment: Canc elled via OM: MD Ordered Performed By: #### L 500.2500, L100.0100 ####[facility] [address] [place], [address] Result Comment: Canc elled via OM: Order cancelled - Patient discharged Performed By: #### L 500.4050 ####[facility] [address] [place], [address] GLU Normal 70-99 [facility] Comment on above: Result Comment: Canc elled via OM: MD Ordered Performed By: #### L 500.2500, L100.0100 ####[facility] [address] [place], [address] Result Comment: Canc elled via OM: Order cancelled - Patient discharged Performed By: #### L 500.4050 ####[facility] [address] [place], [address] Potassium Normal 3.3-5.1 [facility] Comment on above: Result Comment: Canc elled via OM: MD Ordered Performed By: #### L 500.2500, L100.0100 ####[facility] [address] [place], [address] Result Comment: Canc elled via OM: Order cancelled - Patient discharged Performed By: #### L 500.4050 ####[facility] [address] [place], [address] Basic Metabolic Profile (BMP) Normal 133-145 [facility] Comment on above: Result Comment: Canc elled via OM: MD Ordered Performed By: #### L 500.2500, L100.0100 ####[facility] [address] [place], [address] Result Comment: Canc elled via OM: Order cancelled - Patient discharged Performed By: #### L 500.4050 ####[facility] [address] [place], [address] Basic metabolic 2000 panelon 11-14-2024 Anion gap [Moles/Vol] 11 mmol/L Normal 8-15 [facility] Comment on above: Order Comment: Speci men Type: BLOOD SPECIMENOrdering Facility: [facility] Address: [facility] [place] [address] Performed By: #### 2 4321-2, 25293-2, 2776-1, ####[facility] LABCLIA [id number] [address] [address] [place] Calcium [Mass/Vol] 8.9 mg/dL Normal 8.5-10.2 [facility] Comment on above: Order Comment: Speci men Type: BLOOD SPECIMENOrdering Facility: [facility] Address: [address] [place], [place] [address] Performed By: #### 2 4321-2, 41555-0, 2776-, ####[facility] LABCLIA [id number] [address] [address] [place] Chloride [Moles/Vol] 99 mmol/L Normal 98-107 [facility] Comment on above: Order Comment: Speci men Type: BLOOD SPECIMENOrdering Facility: [facility] Address: [address] [place], [place] [address] Performed By: #### 2 4321-2, 01784-4, 2776-08, ####[facility] LABIA [id number] [address] [address] [place] CO2 [Moles/Vol] 17 mmol/L Low 22-30 [facility] Comment on above: Order Comment: Speci men Type: BLOOD SPECIMENOrdering Facility: [facility] Address: [address] [place] [address] Performed By: #### 2 4321-2, 08236-0, 2776-08, ####[facility] LABCLIA [id number] [address] [address] [place] Creatinine [Mass/Vol] 0.89 mg/dL Normal 0.73-1.22 [facility] Comment on above: Order Comment: Speci men Type: BLOOD SPECIMENOrdering Facility: [facility] Address: [address] [place] [address] Performed By: #### 2 4321-2, 11711-6, 2777-1, ####[facility] LABIA [id number] [place] [id number] [place] Creatinine and Glomerular filtration rate.predicted panel (S/P/Bld) 99 mL/min/1.73m??? Normal >=60 [facility] Comment on above: Order Comment: Ezekiel ramirez Type: BLOOD SPECIMENOrdering Facility: [facility] Address: [address] [place] [address] Result Comment: Patric mated Glomerular Filtration Rate (eGFR) is calculated using the 2020 CKD-EPI creatinine equation. This equation utilizes serum creatinine, sex, and age as parameters. The creatinine assay has traceable calibration to isotope dilution-mass spectrometry. Refer to KDIGO guidelines for clinical interpretation. In patients with unstable renal function, e.g. those with acute kidney injury, the eGFR may not accurately reflect actual GFR. Performed By: #### 2 4321-2, 19070-6, 2776-, ####[facility] LABIA [id number] [address] [address] [place] Glucose [Mass/Vol] 250 mg/dL High 74-99 [facility] Comment on above: Order Comment: Ezekiel ramirez Type: BLOOD SPECIMENOrdering Facility: [facility] Address: [address] [place] [address] Result Comment: The [place] Diabetes Association (ADA) provides guidance for cutoff values for fasting glucose and random glucose. The ADA defines fasting as no caloric intake for at least 8 hours. Fasting plasma glucose results between 100 to 125 mg/dL indicate increased risk for diabetes (prediabetes).Fasting plasma glucose results greater than or equal to 126 mg/dL meet the criteria for diagnosis of diabetes. In the absence of unequivocal hyperglycemia, results should be confirmed by repeat testing. In a patient with classic symptoms of hyperglycemia or hyperglycemic crisis, random plasma glucose results greater than or equal to 200 mg/dL meet the criteria for diagnosis of diabetes.Reference: Standards of Medical Care in Diabetes 2016, [place] Diabetes [employer]. Diabetes Care. 2016.39(Suppl 1). Performed By: #### 2 4321-2, 94518-3, 277-1, ####[facility] LABIA [id number] [place] [id number] [place] Potassium [Moles/Vol] 3.6 mmol/L Low 3.7-5.1 [facility] Comment on above: Order Comment: Speci men Type: BLOOD SPECIMENOrdering Facility: [facility] Address: [address] [place] [address] Performed By: #### 2 4321-2, 12301-3, 277-, ####[facility] [id number] [place] [address] [place] Sodium [Moles/Vol] 127 mmol/L Low 136-144 [facility] Comment on above: Order Comment: Speci men Type: BLOOD SPECIMENOrdering Facility: [facility] Address: [address] [place] [address] Performed By: #### 2 4321-2, 29017-2, 2776-, ####[facility] [id number] [place] [id number] [place] Urea nitrogen [Mass/Vol] 14 mg/dL Normal 9-24 [facility] Comment on above: Order Comment: Speci men Type: BLOOD SPECIMENOrdering Facility: [facility] Address: [address] [place] [address] Performed By: #### 2 4321-2, 00109-4, 27702-01, ####[facility] [id number] [place] [id number] [place] CBC W Auto Differential pane l (Bld)on 11-14-2024 Basophils (Bld) [#/Vol] 0.04 10*3/uL Normal <0.11 [facility] Comment on above: Order Comment: Speci men Type: BLOOD SPECIMENOrdering Facility: [facility] Address: [address] [place] [address] Performed By: #### 5 7021-8 ####[facility] LABCLIA [id number] [place] [address] [place] Basophils/100 WBC (Bld) 0.7 % Normal [facility] Comment on above: Order Comment: Speci men Type: BLOOD SPECIMENOrdering Facility: [facility] Address: [address] [place] [address] Performed By: #### 5 7021-8 ####[facility] LABCLIA [id number] [place] [address] [place] Differential cell count method Nom (Bld) Auto Normal [facility] Comment on above: Order Comment: Speci men Type: BLOOD SPECIMENOrdering Facility: [facility] Address: [address] [place] [address] Performed By: #### 5 7021-8 ####[facility] LABCLIA [id number] [address] [place] Eosinophils (Bld) [#/Vol] 0.23 10*3/uL Normal <0.46 [facility] Comment on above: Order Comment: Speci men Type: BLOOD SPECIMENOrdering Facility: [facility] Address: [address] [place] [address] Performed By: #### 5 7021-8 ####[facility] LABCLIA [id number] [address] [place] Eosinophils/100 WBC (Bld) 4.1 % Normal [facility] Comment on above: Order Comment: Speci men Type: BLOOD SPECIMENOrdering Facility: [facility] Address: [address] [place] [address] Performed By: #### 5 7021-8 ####[facility] LABCLIA [id number] [place] [address] [place] Erythrocyte distribution width (RBC) [Ratio] 16.3 % High 11.5-15.0 [facility] Comment on above: Order Comment: Speci men Type: BLOOD SPECIMENOrdering Facility: [facility] Address: [address] [place] [address] Performed By: #### 5 7021-8 ####[facility] LABCLIA [id number] [place] [address] [place] Hematocrit (Bld) [Volume fraction] 22.7 % Low 39.0-51.0 [facility] Comment on above: Order Comment: Speci men Type: BLOOD SPECIMENOrdering Facility: [facility] Address: [address] [place] [address] Performed By: #### 5 7021-8 ####[facility] LABCLIA [id number] [place] [address] [place] Hemoglobin (Bld) [Mass/Vol] 7.9 g/dL Low 13.0-17.0 [facility] Comment on above: Order Comment: Speci men Type: BLOOD SPECIMENOrdering Facility: [facility] Address: [address] [place] [address] Performed By: #### 5 7021-8 ####[facility] LABIA [id number] [place] [address] [place] Immature granulocytes (Bld) [#/Vol] 0.04 10*3/uL Normal <0.10 [facility] Comment on above: Order Comment: Speci men Type: BLOOD SPECIMENOrdering Facility: [facility] Address: [address] [place] [address] Performed By: #### 5 7021-8 ####[facility] LABCLIA [id number] [place] [address] [place] Immature granulocytes/100 WBC (Bld) 0.7 % Normal [facility] Comment on above: Order Comment: Speci men Type: BLOOD SPECIMENOrdering Facility: [facility] Address: [address] [place], [place] [address] Performed By: #### 5 7021-8 ####[facility] LABCLIA [id number] [place] [address] [place] Lymphocytes (Bld) [#/Vol] 0.72 10*3/uL Low 1.00-4.00 [facility] Comment on above: Order Comment: Speci men Type: BLOOD SPECIMENOrdering Facility: [facility] Address: [address] [place] [address] Performed By: #### 5 7021-8 ####[facility] LABCLIA [id number] [place] [address] [place] Lymphocytes/100 WBC (Bld) 12.8 % Normal [facility] Comment on above: Order Comment: Speci men Type: BLOOD SPECIMENOrdering Facility: [facility] Address: [address] [place] [address] Performed By: #### 5 7021-8 ####[facility] LABCLIA [id number] [place] [address] [place] MCH (RBC) [Entitic mass] 31.7 pg Normal 26.0-34.0 [facility] Comment on above: Order Comment: Speci men Type: BLOOD SPECIMENOrdering Facility: [facility] Address: [address] [place] [address] Performed By: #### 5 7021-8 ####[facility] LABCLIA [id number] [place] [address] [place] MCHC (RBC) [Mass/Vol] 34.8 g/dL Normal 30.5-36.0 [facility] Comment on above: Order Comment: Speci men Type: BLOOD SPECIMENOrdering Facility: [facility] Address: [address] [place] [address] Performed By: #### 5 7021-8 ####[facility] LABCLIA [id number] [address] [address] [id number] [address] [place] MCV (RBC) [Entitic vol] 91.2 fL Normal 80.0-100.0 C [facility] Comment on above: Order Comment: Speci men Type: BLOOD SPECIMENOrdering Facility: [facility] Address: [address] [place] [address] Performed By: #### 5 7021-8 ####[facility] LABCLIA [id number] [facility] [address], [place] [address] [place] Monocytes (Bld) [#/Vol] 0.68 10*3/uL Normal <0.87 [facility] Comment on above: Order Comment: Speci men Type: BLOOD SPECIMENOrdering Facility: [facility] Address: [address] [place] [address] Performed By: #### 5 7021-8 ####[facility] LABCLIA [id number] [place] [address] [place] Monocytes/100 WBC (Bld) 12.1 % Normal [facility] Comment on above: Order Comment: Speci men Type: BLOOD SPECIMENOrdering Facility: [facility] Address: [address] [place] [address] Performed By: #### 5 7021-8 ####[facility] LABCLIA [id number] [address], [facility]95 [place] Neutrophils (Bld) [#/Vol] 3.92 10*3/uL Normal 1.45-7.50 [facility] Comment on above: Order Comment: Speci men Type: BLOOD SPECIMENOrdering Facility: [facility] Address: [address] [place] [address] Performed By: #### 5 7021-8 ####[facility] LABCLIA [id number] [facility] [place] [id number] [place] Neutrophils/100 WBC (Bld) 69.6 % Normal [facility] Comment on above: Order Comment: Speci men Type: BLOOD SPECIMENOrdering Facility: [facility] Address: [address] [place] [address] Performed By: #### 5 7021-8 ####[facility] LABIA [id number] [place] [address] [place] Nucleated RBC (Bld) [#/Vol] 10*3/uL Normal <0.01 [facility] Comment on above: Order Comment: Speci men Type: BLOOD SPECIMENOrdering Facility: [facility] Address: [address] [place] [address] Performed By: #### 5 7021-8 ####[facility] [id number] [place] [address] [place] Nucleated RBC/100 WBC (Bld) [Ratio] 0.0 /100 WBC Normal [facility] Comment on above: Order Comment: Speci men Type: BLOOD SPECIMENOrdering Facility: [facility] Address: [address] [place] [address] Performed By: #### 5 7021-8 ####[facility] [id number] [place] [address] [place] Platelet mean volume (Bld) [Entitic vol] 12.1 fL Normal 9.0-12.7 [facility] Comment on above: Order Comment: Speci men Type: BLOOD SPECIMENOrdering Facility: [facility] Address: [address] [place] [address] Performed By: #### 5 7021-8 ####[facility] LABIA [id number] [place] [address] [place] Platelets (Bld) [#/Vol] 43 10*3/uL Low 150-400 C [facility] Comment on above: Order Comment: Speci men Type: BLOOD SPECIMENOrdering Facility: [facility] Address: [address] [place] [address] Result Comment: Resu lts checked and verified.No clot detected. Performed By: #### 5 7021-8 ####[facility] LABCLIA [id number] [place] [id number] [place] RBC (Bld) [#/Vol] 2.49 10*6/uL Low 4.20-6.00 [facility] Comment on above: Order Comment: Speci men Type: BLOOD SPECIMENOrdering Facility: [facility] Address: [address] [place] [address] Performed By: #### 5 7021-8 ####[facility] LABCLIA [id number] [place] [id number] [place] WBC (Bld) [#/Vol] 5.63 10*3/uL Normal 3.70-11.00 [facility] Comment on above: Order Comment: Speci men Type: BLOOD SPECIMENOrdering Facility: [facility] Address: [address] [place] [address] Performed By: #### 5 7021-8 ####[facility] LABCLIA [id number] [place] [id number] [place] CBC W/Diff, Automatedon 04-1 Absolute Neut Normal 2.0-7.7 [facility] Comment on above: Result Comment: Canc elled via OM: Order cancelled - Patient discharged Performed By: #### L 500.2500, L100.0100 ####[facility] [address] [facility] [address] HCT Normal 40-54 [facility] Comment on above: Result Comment: Canc elled via OM: Order cancelled - Patient discharged Performed By: #### L 500.2500, L100.0100 ####[facility] [address] [place], [address] HGB Normal 13.0-16.5 [facility] Comment on above: Result Comment: Canc elled via OM: Order cancelled - Patient discharged Performed By: #### L 500.2500, L100.0100 ####[facility] [address] [place], [address] MCH Normal 27.0-32.0 [facility] Comment on above: Result Comment: Canc elled via OM: Order cancelled - Patient discharged Performed By: #### L 500.2500, L100.0100 ####[facility] [address] [place], [address] MCHC Normal 32-36 [facility] Comment on above: Result Comment: Canc elled via OM: Order cancelled - Patient discharged Performed By: #### L 500.2500, L100.0100 ####[facility] [address] [place], [address] MCV Normal 80-94 [facility] Comment on above: Result Comment: Canc elled via OM: Order cancelled - Patient discharged Performed By: #### L 500.2500, L100.0100 ####[facility] [address] [place], [address] NEUT% Normal 47-70 [facility] Comment on above: Result Comment: Canc elled via OM: Order cancelled - Patient discharged Performed By: #### L 500.2500, L100.0100 ####[facility] [address] [place], [address] PLT Normal 150-450 [facility] Comment on above: Result Comment: Canc elled via OM: Order cancelled - Patient discharged Performed By: #### L 500.2500, L100.0100 ####[facility] [address] [place], [address] RBC Normal 4.6-6.2 [facility] Comment on above: Result Comment: Canc elled via OM: Order cancelled - Patient discharged Performed By: #### L 500.2500, L100.0100 ####[facility] [address] [place], [address] RDW CV Normal 11.6-14.6 [facility] Comment on above: Result Comment: Canc elled via OM: Order cancelled - Patient discharged Performed By: #### L 500.2500, L100.0100 ####[facility] [address] [place], [address] RDW SD Normal 35.1-43.9 [facility] Comment on above: Result Comment: Canc elled via OM: Order cancelled - Patient discharged Performed By: #### L 500.2500, L100.0100 ####[facility] [address] [place], [address] WBC Normal 4.4-11.0 [facility] Comment on above: Result Comment: Canc elled via OM: Order cancelled - Patient discharged Performed By: #### L 500.2500, L100.0100 ####[facility] [address] [place], [address] Comprehensive Metabolic Prof ilon 11-14-2024 ALB Normal 3.5-5.0 [facility] Comment on above: Result Comment: Canc elled via OM: Order cancelled - Patient discharged Performed By: #### L 500.4050 ####[facility] [address] [place], [address] ALK PHOS Normal 40-129 [facility] Comment on above: Result Comment: Canc elled via OM: Order cancelled - Patient discharged Performed By: #### L 500.4050 ####[facility] [address] [place], [address] ALT Normal <=46 [facility] Comment on above: Result Comment: Canc elled via OM: Order cancelled - Patient discharged Performed By: #### L 500.4050 ####[facility] [address] [place], [address] AST Normal <=37 [facility] Comment on above: Result Comment: Canc elled via OM: Order cancelled - Patient discharged Performed By: #### L 500.4050 ####[facility] [address] [place], [address] T BILI Normal 0.00-1.30 [facility] Comment on above: Result Comment: Canc elled via OM: Order cancelled - Patient discharged Performed By: #### L 500.4050 ####[facility] [address] [place], [address] T PROT Normal 5.9-8.4 [facility] Comment on above: Result Comment: Canc elled via OM: Order cancelled - Patient discharged Performed By: #### L 500.4050 ####[facility] [address] [place], [address] Fibrinogen PPP-mCncon 2024 Fibrinogen Coag (PPP) [Mass/Vol] 119 mg/dL Low 200-400 [facility] Comment on above: Order Comment: Speci men Type: BLOOD SPECIMENOrdering Facility: [facility] Address: [address] [place] [address] Performed By: #### 3 255-7, 11274-3 ####[facility] LABCLIA [id number] [place] [address] [place] Hepatic function 2000 panelo n 11-14-2024 Albumin [Mass/Vol] 2.8 g/dL Low 3.9-4.9 [facility] Comment on above: Order Comment: Speci men Type: BLOOD SPECIMENOrdering Facility: [facility] Address: [address] [place] [address] Performed By: #### 2 4321-2, 44442-8, 2777-1, 23682-0 ####[facility] LABCLIA [id number] [place] [address] [place] ALP [Catalytic activity/Vol] 248 U/L High 38-113 [facility] Comment on above: Order Comment: Speci men Type: BLOOD SPECIMENOrdering Facility: [facility] Address: [address] [place], [place] [address] Performed By: #### 2 4321-2, 46700-0, 2776-08, ####[facility] LABCLIA [id number] [address] [address] [place] ALT [Catalytic activity/Vol] 29 U/L Normal 10-54 [facility] Comment on above: Order Comment: Speci men Type: BLOOD SPECIMENOrdering Facility: [facility] Address: [address] [place], [place] [address] Performed By: #### 2 4321-2, 98884-3, 2776-08, ####[facility] LABCLIA [id number] [place] [address] [place] AST [Catalytic activity/Vol] 62 U/L High 14-40 [facility] Comment on above: Order Comment: Speci men Type: BLOOD SPECIMENOrdering Facility: [facility] Address: [address] [place], [place] [address] Performed By: #### 2 4321-2, 43792-6, 2776-08, ####[facility] LABCLIA [id number] [address] [address] [place] Bilirubin [Mass/Vol] 1.7 mg/dL High 0.2-1.3 [facility] Comment on above: Order Comment: Speci men Type: BLOOD SPECIMENOrdering Facility: [facility] Address: [address] [place], [place] [address] Performed By: #### 2 4321-2, 38516-7, 2776-08, ####[facility] LABCLIA [id number] [address] [address] [place] Bilirubin.conjugated [Mass/Vol] 1.0 mg/dL High <0.3 [facility] Comment on above: Order Comment: Speci men Type: BLOOD SPECIMENOrdering Facility: [facility] Address: [address] [place] [address] Performed By: #### 2 4321-2, 66597-0, 27702-01, ####[facility] LABIA [id number] [address] [address] [place] Protein [Mass/Vol] 5.4 g/dL Low 6.3-8.0 [facility] Comment on above: Order Comment: Speci men Type: BLOOD SPECIMENOrdering Facility: [facility] Address: [address] [place] [address] Performed By: #### 2 4321-2, 98538-5, 27702-01, ####[facility] [id number] [place] [id number] [place] Magnesium SerPl-mCncon 11-14 Magnesium [Mass/Vol] 1.6 mg/dL Low 1.7-2.3 [facility] Comment on above: Order Comment: Speci men Type: BLOOD SPECIMENOrdering Facility: [facility] Address: [address] [place] [address] Performed By: #### 2 4321-2, 71172-6, 27702-01, ####[facility] [id number] [place] [id number] [place] PT panel Coag (PPP)on 2024 INR Coag (PPP) [Relative time] 1.8 {INR} High 0.9-1.3 [facility] Comment on above: Order Comment: Speci men Type: BLOOD SPECIMENOrdering Facility: [facility] Address: [address] [place] [address] Result Comment: Sarah min K Antagonist (VKA) Therapeutic Range: INR 2 to 3 (Target INR of 2.5)Note: For patients treated with VKA drugs, such as warfarin, the [employer] 2012 Guideline recommends a therapeutic INR range of 2 to 3 (target INR of 2.5). This recommendation includes high-risk patients with antiphospholipid syndrome with previous arterial or venous thromboembolism, current-generation mechanical or bioprosthetic aortic heart valve replacement.Note: Patients with mechanical aortic valve replacement and additional risk factors for thromboembolic events (atrial fibrillation, previous thromboembolism, LV dysfunction, hypercoagulable conditions) or an older generation mechanical AVR (i.e., ball in-Cage) or any mechanical MVR should have a INR therapeutic range of 2.5 to 3.5 (target INR of 3).Tammi GH, et al. Chest 2012, 141:7S-47SNishimnicolle RA, et al. [facility] 2017, 70: 252-289 Performed By: #### 3 255-7, 05790-0 ####[facility] [id number] [place] [address] [place] PT Coag (PPP) [Time] 19.2 s High 9.7-13.0 [facility] Comment on above: Order Comment: Speci men Type: BLOOD SPECIMENOrdering Facility: [facility] Address: [address] [place] [address] Performed By: #### 3 255-7, 27274-1 ####[facility] [id number] [place] [address] [place] Phosphate SerPl-mCncon 11-14 Phosphate [Mass/Vol] 1.9 mg/dL Low 2.7-4.8 [facility] Comment on above: Order Comment: Speci men Type: BLOOD SPECIMENOrdering Facility: [facility] Address: [address] [place] [address] Performed By: #### 2 4321-2, 34392-6, 2777-1, 08973-1 ####[facility] [id number] [place] [address] [place] URINALYSIS, REFLEX MICROSCOP ICon 11-14-2024 Bacteria LM.HPF (Urine sed) [#/Area] Negative Normal Negative [facility] Comment on above: Order Comment: Speci men Type: URINE SPECIMENOrdering Facility: [facility] Address: [address] [place] [address] Performed By: #### L [id number] ####[facility] LABCLIA [id number] [place] [address] [place] Bilirubin Ql (U) 1+ Abnormal Negative [facility] Comment on above: Order Comment: Speci men Type: URINE SPECIMENOrdering Facility: [facility] Address: [address] [place] [address] Result Comment: Sugg est correlation with clinical findings and serum bilirubin if clinically indicated. Performed By: #### L [id number] ####[facility] LABCLIA [id number] [place] [address] [place] Clarity (Unsp spec) Cloudy Abnormal Clear [facility] Comment on above: Order Comment: Speci men Type: URINE SPECIMENOrdering Facility: [facility] Address: [address] [place] [address] Performed By: #### L [id number] ####[facility] LABCLIA [id number] [place] [address] [place] Color (U) Gratis Abnormal Yellow [facility] Comment on above: Order Comment: Speci men Type: URINE SPECIMENOrdering Facility: [facility] Address: [address] [place] [address] Performed By: #### L [id number] ####[facility] LABCLIA [id number] [place] [address] [place] Epithelial cells LM.HPF (Urine sed) [#/Area] None Seen Normal [facility] Comment on above: Order Comment: Speci men Type: URINE SPECIMENOrdering Facility: [facility] Address: [address] [place] [address] Performed By: #### L [id number] ####[facility] LABCLIA [id number] [address] [address] [place] Glucose Test strip (U) [Mass/Vol] Negative Normal Negative [facility] Comment on above: Order Comment: Speci men Type: URINE SPECIMENOrdering Facility: [facility] Address: [address] [place] [address] Performed By: #### L [id number] ####[facility] LABCLIA [id number] [place] [id number] [place] Hemoglobin Ql (U) 3+ Abnormal Negative [facility] Comment on above: Order Comment: Speci men Type: URINE SPECIMENOrdering Facility: [facility] Address: [address] [place] [address] Performed By: #### L [id number] ####[facility] LABCLIA [id number] [place] [address] [place] Hyaline casts (Urine sed) [#/Area] 0 /[LPF] Normal 0 /LPF [facility] Comment on above: Order Comment: Speci men Type: URINE SPECIMENOrdering Facility: [facility] Address: [address] [place] [address] Performed By: #### L [id number] ####[facility] LABCLIA [id number] [place] [id number] [place] Ketones Ql (U) Negative Normal Negative [facility] Comment on above: Order Comment: Speci men Type: URINE SPECIMENOrdering Facility: [facility] Address: [address] [place] [address] Performed By: #### L [id number] ####[facility] LABCLIA [id number] [place] [address] [place] Leukocyte esterase Test strip Ql (U) 3+ Abnormal Negative [facility] Comment on above: Order Comment: Speci men Type: URINE SPECIMENOrdering Facility: [facility] Address: [address] [place] [address] Performed By: #### L [id number] ####[facility] LABCLIA [id number] [place] [address] [place] Nitrite Ql (U) Negative Normal Negative [facility] Comment on above: Order Comment: Speci men Type: URINE SPECIMENOrdering Facility: [facility] Address: [address] [place] [address] Performed By: #### L [id number] ####[facility] LABCLIA [id number] [place] [address] [place] pH (U) 6.0 [pH] Normal <8.5 [facility] Comment on above: Order Comment: Speci men Type: URINE SPECIMENOrdering Facility: [facility] Address: [address] [place] [address] Performed By: #### L [id number] ####[facility] LABIA [id number] [place] [address] [place] Protein (U) [Mass/Vol] 2+ Abnormal Negative [facility] Comment on above: Order Comment: Speci men Type: URINE SPECIMENOrdering Facility: [facility] Address: [address] [place] [address] Performed By: #### L [id number] ####[facility] LABIA [id number] [place] [address] [place] RBC LM.HPF (Urine sed) [#/Area] /[HPF] Abnormal 0-2 /HPF [facility] Comment on above: Order Comment: Speci men Type: URINE SPECIMENOrdering Facility: [facility] Address: [address] [place] [address] Performed By: #### L [id number] ####[facility] LABIA [id number] [place] [address] [place] Specific gravity (U) [Rel density] 1.017 Normal 1.005-1.030 [facility] Comment on above: Order Comment: Speci men Type: URINE SPECIMENOrdering Facility: [facility] Address: [address] [place] [address] Performed By: #### L [id number] ####[facility] LABIA [id number] [place] [address] [place] Urobilinogen Ql (U) 0.2 EU/dL Normal 0.2-1.0 EU/dL [facility] Comment on above: Order Comment: Speci men Type: URINE SPECIMENOrdering Facility: [facility] Address: [address] [place] [address] Performed By: #### L [id number] ####[facility] [id number] [place] [address] [place] WBC LM.HPF (Urine sed) [#/Area] /[HPF] Abnormal 0-5 /HPF [facility] Comment on above: Order Comment: Speci men Type: URINE SPECIMENOrdering Facility: [facility] Address: [address] [place] [address] Performed By: #### L [id number] ####[facility] [id number] [place] [address] [place] Yeast.budding LM.HPF (Urine sed) [#/Area] Present Abnormal None Seen [facility] Comment on above: Order Comment: Speci men Type: URINE SPECIMENOrdering Facility: [facility] Address: [address] [place] [address] Performed By: #### L [id number] ####[facility] [id number] [place] [address] [place] 25(OH)D3 [facility] 2024 25-hydroxyvitamin D3 [Mass/Vol] 16.2 ng/mL Low 31.0-80.0 [facility] Comment on above: Order Comment: Speci men Type: BLOOD SPECIMENOrdering Facility: [facility] Address: [address] [place] [address] Performed By: #### 7 852-7, MEASLG, VZVG2, 1988- ####[facility] LABCLIA [id number] [place] [address] [place] A-Tocopherol Vit E SerPl-mCn con 11-13-2024 Alpha tocopherol [Mass/Vol] 3.3 mg/L Low 6.0-23.0 [facility] Comment on above: Order Comment: Speci men Type: BLOOD SPECIMENOrdering Facility: [facility] Address: [address] [place] [address] Performed By: #### 2 923-1, 1823-4 ####[facility] [id number] [address] [place] ALPHA-1 ANTITRYPSIN GENOon 0 11-13-2024 HA1AT REVIEWED BY Michelle [facility] Comment on above: Order Comment: Speci men Type: BLOOD SPECIMENOrdering Facility: [facility] Address: [address] [place] [address] Result Comment: Alph a-1 Antitrypsin GenotypingLaboratory Accession Number: [id number]:No Variant Detected in SERPINA1 (PI*MM)Interpretation:DNA testing indicates that this patient does not have the S, Z, F, Bebe alleles of SERPINA1, the alpha-1 antitrypsin gene.Guidance:Genetic consultation and counseling of at risk family membersregarding this laboratory testing may be considered as clinicallyappropriate. Patients with no variants of SERPINA1 typically haveserum alpha-1 antitrypsin levels between 102-254 mg/dL. If thispatient has a serum alpha-1 antitrypsin level that is not consistentwith this genotype and alpha-1 antitrypsin deficiency caused by a rarevariant is clinically suspected, consider performing SERPINA1 genesequencing.Methodology:Isolated genomic DNA from the patient's blood specimen is evaluatedfor four variants in the alpha-1 antitrypsin gene SERPINA1 (RefSeqNM_[id number]; GRCh38/hg38) by multiplex polymerase chain reaction(PCR) followed by melting curve analysis. These included the two mostcommon pathogenic variants: S (c.863A>T, p.Bdz506Ija, g.58043138), Z(c.1096G>A, p.Vjs039Sjr, g.28043292), and the rarer variants: F(c.739C>T, p.Juw357Dhi, g.79315672), I (c.187C>T, p.Nkj42Lis,g.09517826).Limitations:This Laboratory Developed Test (LDT) is designed to detect the S, Z, Fand I alleles. The S and Z alleles comprise 95% of non-wild typegenotypes. Uncommon variants or Single Nucleotide Polymorphisms mayaffect binding of LightMix or LightSNiP probes and may result in afalse negative, false positive, or indeterminate result. Absence ofthe S, Z, F, and I alleles is interpreted as PI*MM genotype. However,there are over 100 known rare variants of SERPINA1 that are notdetected by this LDT. Therefore, correlation of the genotype with thepatient's serum alpha-1 antitrypsin level and clinical manifestationsis strongly recommended.Frequency of S, Z, F and I Alleles in the general population:S: Heterozygous 2%; Homozygous 0.04%Z: Heterozygous 1%; Homozygous 0.01%F: Heterozygous 0.3%; Homozygous 0.001%I: Heterozygous 0.1%; Homozygous unknownAllele frequency information was gathered from the [employer] ([employer]) and includes data from , , ,and populations (supporting data in references).Disclaimer:This test was developed and its performance characteristics determinedby [facility]'s Pathology and Laboratory Medicine Department. Ithas not been cleared or approved by the FDA. [facility] is regulated under CLIAas certified to perform high-complexity testing. This test is used forclinical purposes. It should not be regarded as investigational or forresearch.Test performed at [facility], [address] [place] [address], [id number]. CLIA Number: [id number]:1) Kait RA, Samir G, Essence ML, Ilan M, Kai CE, K,Jadyn DK, Princess SL, Suman GOMEZ, Ivania MARIE, Haider C, Renée J.The Diagnosis and Management of Alpha-1 Antritrypsin Deficiency inthe Adult. Chronic Obstr Pulm Dis. 2016 Jan 07;3:668-682.2) Renee JA, Linsey ON, Rachele ER, Khushi DG. a1-Antitrypsinphenotypes and associated serum protein concentrations in a largeclinical population. Chest.2013 Nov;143(4):1000-8.3) Elmo A, Toña NA, Brad CR, Jennifer FJ, Salvador SJ, Nicole. Molecular characterisation of three sqtfs-4-kpjehunstxj deficiencyvariants: proteinase inhibitor (Pi) nullcardiff (Oht956----Wrc);PiMmalton (Dzz65----fcudrtyb) and PiI (Hva52----Qgj). Hum Trisha. 1988Dec;84(1):55-8.4) Flor EK and Kait HIRSCH. Clinical practice.Alpha1-antitrypsin deficiency. N Engl J Med. 2008;360(37)6381-07.5) Margot NJ, Kwame F, Prakash HIRSCH. The significance of the F variantof oargp-8-quawoaipspy and unique case report of a PiFF homozygote.[facility] Pulm Med. 2013Mar 10;14:132.6) Ivania MARIE, Elena FL, and Jaziel Carlson. Alpha-1 AntitrypsinDeficiency. 2005May 30 [Updated 2017 August 22]. In: Juanito RA, Barbara, Nemesio TO, et al., editors. GeneReviews [Internet]. [place] ([place]):[facility], [place]cd[place]; 2788-5057. Available from:http://www.ncbi.nlm.nih.gov/books/UIY2728/Interpretation performed at remote location (R0A1) by Fifi España MD Performed By: #### H A1AT ####[facility] [id number] [place] [address] [place] ANES POSTPROC EVALon 025 ANES POSTPROC EVAL Normal [facility] ANES PRE-OPon 11-13-2024 ANES PRE-OP Normal [facility] Alpha tocopherol [Mass/Vol]o n 11-13-2024 Beta+gamma tocopherol [Mass/Vol] 0.6 mg/L Normal 0.3-3.2 [facility] Comment on above: Order Comment: Speci men Type: BLOOD SPECIMENOrdering Facility: [facility] Address: [address] [place] [address] Result Comment: This test was developed, and its performance characteristics determined by the [facility] Department of Pathology and Laboratory Medicine. It has not been cleared or approved by the FDA. The [facility] Department of Pathology and Laboratory Medicine is regulated under CLIA as qualified to perform high-complexity testing. This test is used for clinical purposes. It should not be regarded as investigational or for research. Performed By: #### 2 923-1, 1823-4 ####[facility] LABIA [id number] [place] [id number] [place] Basic metabolic 2000 panelon 11-13-2024 Anion gap [Moles/Vol] 9 mmol/L Normal 8-15 [facility] Comment on above: Order Comment: Speci men Type: BLOOD SPECIMENOrdering Facility: [facility] Address: [address] [place] [address] Performed By: #### 2 4321-2, 81999-4, 72787-4, 34995-8 ####[facility] LABIA [id number] [place] [id number] [place] Calcium [Mass/Vol] 9.1 mg/dL Normal 8.5-10.2 [facility] Comment on above: Order Comment: Speci men Type: BLOOD SPECIMENOrdering Facility: [facility] Address: [address] [place] [address] Performed By: #### 2 4321-2, 37162-1, 07944-8, 83895-5 ####[facility] LABCLIA [id number] [place] [id number] [place] Chloride [Moles/Vol] 99 mmol/L Normal 98-107 [facility] Comment on above: Order Comment: Speci men Type: BLOOD SPECIMENOrdering Facility: [facility] Address: [address] [place] [address] Performed By: #### 2 4321-2, 86282-7, 63349-5, 65590-3 ####[facility] LABIA [id number] [place] [address] [place] CO2 [Moles/Vol] 16 mmol/L Low 22-30 [facility] Comment on above: Order Comment: Speci men Type: BLOOD SPECIMENOrdering Facility: [facility] Address: [address] [place] [address] Performed By: #### 2 4321-2, 43540-4, 63523-7, 31068-8 ####[facility] LABIA [id number] [place] [address] [place] Creatinine [Mass/Vol] 1.10 mg/dL Normal 0.73-1.22 [facility] Comment on above: Order Comment: Speci men Type: BLOOD SPECIMENOrdering Facility: [facility] Address: [address] [place] [address] Performed By: #### 2 4321-2, 91286-2, 18041-3, 64077-4 ####[facility] LABIA [id number] [place] [address] [place] Creatinine and Glomerular filtration rate.predicted panel (S/P/Bld) 78 mL/min/1.73m??? Normal >=60 [facility] Comment on above: Order Comment: Speci men Type: BLOOD SPECIMENOrdering Facility: [facility] Address: [address] [place] [address] Result Comment: Patric mated Glomerular Filtration Rate (eGFR) is calculated using the 2020 CKD-EPI creatinine equation. This equation utilizes serum creatinine, sex, and age as parameters. The creatinine assay has traceable calibration to isotope dilution-mass spectrometry. Refer to KDIGO guidelines for clinical interpretation. In patients with unstable renal function, e.g. those with acute kidney injury, the eGFR may not accurately reflect actual GFR. Performed By: #### 2 4321-2, 14782-6, 13997-1, 34559-2 ####[facility] LABCLIA [id number] [facility] [address] [address] [place] Glucose [Mass/Vol] 278 mg/dL High 74-99 [facility] Comment on above: Order Comment: Ezekiel ramirez Type: BLOOD SPECIMENOrdering Facility: [facility] Address: [address] [place] [address] Result Comment: The [place] Diabetes Association (ADA) provides guidance for cutoff values for fasting glucose and random glucose. The ADA defines fasting as no caloric intake for at least 8 hours. Fasting plasma glucose results between 100 to 125 mg/dL indicate increased risk for diabetes (prediabetes).Fasting plasma glucose results greater than or equal to 126 mg/dL meet the criteria for diagnosis of diabetes. In the absence of unequivocal hyperglycemia, results should be confirmed by repeat testing. In a patient with classic symptoms of hyperglycemia or hyperglycemic crisis, random plasma glucose results greater than or equal to 200 mg/dL meet the criteria for diagnosis of diabetes.Reference: Standards of Medical Care in Diabetes 2016, [place] Diabetes Association. Diabetes Care. 2016.39(Suppl 1). Performed By: #### 2 4321-2, 19956-8, 64302-8, 64759-4 ####[facility] LABCLIA [id number] [facility] [address] [address] [place] Potassium [Moles/Vol] 4.1 mmol/L Normal 3.7-5.1 [facility] Comment on above: Order Comment: Ezekiel ramirez Type: BLOOD SPECIMENOrdering Facility: [facility] Address: [address] [place] [id number] Performed By: #### 2 4321-2, 90246-1, 86729-2, 00906-7 ####[facility] LABCLIA [id number] [facility] [place] [place] [address] [place] Sodium [Moles/Vol] 124 mmol/L Low 136-144 [facility] Comment on above: Order Comment: Speci men Type: BLOOD SPECIMENOrdering Facility: [facility] Address: [address] [place] [address] Performed By: #### 2 4321-2, 30966-3, 33403-9, 49659-1 ####[facility] LABCLIA [id number] [place] [address] [place] Urea nitrogen [Mass/Vol] 20 mg/dL Normal 9-24 [facility] Comment on above: Order Comment: Speci men Type: BLOOD SPECIMENOrdering Facility: [facility] Address: [address] [place] [address] Performed By: #### 2 4321-2, 70582-0, 28988-8, 03453-6 ####[facility] LABCLIA [id number] [place] [address] [place] CBC W Auto Differential pane l (Bld)on 11-13-2024 Basophils (Bld) [#/Vol] 10*3/uL Normal <0.11 C [facility] Comment on above: Order Comment: Speci men Type: BLOOD SPECIMENOrdering Facility: [facility] Address: [address] [place] [address] Performed By: #### 5 7021-8 ####[facility] LABCLIA [id number] [place] [address] [place] Basophils/100 WBC (Bld) 0.4 % Normal C [facility] Comment on above: Order Comment: Speci men Type: BLOOD SPECIMENOrdering Facility: [facility] Address: [address] [place] [address] Performed By: #### 5 7021-8 ####[facility] LABCLIA [id number] [place] [address] [place] Differential cell count method Nom (Bld) Auto Normal [facility] Comment on above: Order Comment: Speci men Type: BLOOD SPECIMENOrdering Facility: [facility] Address: [address] [place] [address] Performed By: #### 5 7021-8 ####[facility] LABCLIA [id number] [place] [address] [place] Eosinophils (Bld) [#/Vol] 0.18 10*3/uL Normal <0.46 [facility] Comment on above: Order Comment: Speci men Type: BLOOD SPECIMENOrdering Facility: [facility] Address: [address] [place] [address] Performed By: #### 5 7021-8 ####[facility] LABIA [id number] [place] [address] [place] Eosinophils/100 WBC (Bld) 3.3 % Normal [facility] Comment on above: Order Comment: Speci men Type: BLOOD SPECIMENOrdering Facility: [facility] Address: [address] [place] [address] Performed By: #### 5 7021-8 ####[facility] LABIA [id number] [place] [address] [place] Erythrocyte distribution width (RBC) [Ratio] 17.0 % High 11.5-15.0 [facility] Comment on above: Order Comment: Speci men Type: BLOOD SPECIMENOrdering Facility: [facility] Address: [address] [place] [address] Performed By: #### 5 7021-8 ####[facility] LABIA [id number] [address] [place] Hematocrit (Bld) [Volume fraction] 21.6 % Low 39.0-51.0 [facility] Comment on above: Order Comment: Speci men Type: BLOOD SPECIMENOrdering Facility: [facility] Address: [address] [place] [address] Performed By: #### 5 7021-8 ####[facility] LABCLIA [id number] [place] [address] [place] Hemoglobin (Bld) [Mass/Vol] 7.4 g/dL Low 13.0-17.0 [facility] Comment on above: Order Comment: Speci men Type: BLOOD SPECIMENOrdering Facility: [facility] Address: [address] [place] [address] Performed By: #### 5 7021-8 ####[facility] LABCLIA [id number] [place] [address] [place] Immature granulocytes (Bld) [#/Vol] 0.04 10*3/uL Normal <0.10 [facility] Comment on above: Order Comment: Speci men Type: BLOOD SPECIMENOrdering Facility: [facility] Address: [address] [place] [address] Performed By: #### 5 7021-8 ####[facility] LABIA [id number] [place] [address] [place] Immature granulocytes/100 WBC (Bld) 0.7 % Normal [facility] Comment on above: Order Comment: Speci men Type: BLOOD SPECIMENOrdering Facility: [facility] Address: [address] [place] [address] Performed By: #### 5 7021-8 ####[facility] LABIA [id number] [place] [address] [place] Lymphocytes (Bld) [#/Vol] 0.64 10*3/uL Low 1.00-4.00 [facility] Comment on above: Order Comment: Speci men Type: BLOOD SPECIMENOrdering Facility: [facility] Address: [address] [place] [address] Performed By: #### 5 7021-8 ####[facility] LABIA [id number] [place] [address] [place] Lymphocytes/100 WBC (Bld) 11.6 % Normal [facility] Comment on above: Order Comment: Speci men Type: BLOOD SPECIMENOrdering Facility: [facility] Address: [address] [place] [address] Performed By: #### 5 7021-8 ####[facility] LABIA [id number] [place] [address] [place] MCH (RBC) [Entitic mass] 31.8 pg Normal 26.0-34.0 [facility] Comment on above: Order Comment: Speci men Type: BLOOD SPECIMENOrdering Facility: [facility] Address: [address] [place] [address] Performed By: #### 5 7021-8 ####[facility] LABIA [id number] [place] [address] [place] MCHC (RBC) [Mass/Vol] 34.3 g/dL Normal 30.5-36.0 [facility] Comment on above: Order Comment: Speci men Type: BLOOD SPECIMENOrdering Facility: [facility] Address: [address] [place] [address] Performed By: #### 5 7021-8 ####[facility] LABIA [id number] [place] [address] [place] MCV (RBC) [Entitic vol] 92.7 fL Normal 80.0-100.0 C [facility] Comment on above: Order Comment: Speci men Type: BLOOD SPECIMENOrdering Facility: [facility] Address: [address] [place] [address] Performed By: #### 5 7021-8 ####[facility] LABIA [id number] [place] [address] [place] Monocytes (Bld) [#/Vol] 0.68 10*3/uL Normal <0.87 [facility] Comment on above: Order Comment: Speci men Type: BLOOD SPECIMENOrdering Facility: [facility] Address: [address] [place] [address] Performed By: #### 5 7021-8 ####[facility] LABCLIA [id number] [place] [id number] [place] Monocytes/100 WBC (Bld) 12.4 % Normal [facility] Comment on above: Order Comment: Speci men Type: BLOOD SPECIMENOrdering Facility: [facility] Address: [address] [place] [address] Performed By: #### 5 7021-8 ####[facility] LABCLIA [id number] [place] [address] [place] Neutrophils (Bld) [#/Vol] 3.94 10*3/uL Normal 1.45-7.50 [facility] Comment on above: Order Comment: Speci men Type: BLOOD SPECIMENOrdering Facility: [facility] Address: [address] [place] [address] Performed By: #### 5 7021-8 ####[facility] LABCLIA [id number] [place] [address] [place] Neutrophils/100 WBC (Bld) 71.6 % Normal [facility] Comment on above: Order Comment: Speci men Type: BLOOD SPECIMENOrdering Facility: [facility] Address: [address] [place] [address] Performed By: #### 5 7021-8 ####[facility] LABCLIA [id number] [place] [id number] [place] Nucleated RBC (Bld) [#/Vol] 10*3/uL Normal <0.01 [facility] Comment on above: Order Comment: Speci men Type: BLOOD SPECIMENOrdering Facility: [facility] Address: [address] [place] [address] Performed By: #### 5 7021-8 ####[facility] LABCLIA [id number] [place] [id number] [place] Nucleated RBC/100 WBC (Bld) [Ratio] 0.0 /100 WBC Normal [facility] Comment on above: Order Comment: Speci men Type: BLOOD SPECIMENOrdering Facility: [facility] Address: [address] [place] [address] Performed By: #### 5 7021-8 ####[facility] LABCLIA [id number] [place] [address] [place] Platelet mean volume (Bld) [Entitic vol] 11.7 fL Normal 9.0-12.7 [facility] Comment on above: Order Comment: Speci men Type: BLOOD SPECIMENOrdering Facility: [facility] Address: [address] [place] [address] Performed By: #### 5 7021-8 ####[facility] LABIA [id number] [place] [address] [place] Platelets (Bld) [#/Vol] 38 10*3/uL Low 150-400 C [facility] Comment on above: Order Comment: Speci men Type: BLOOD SPECIMENOrdering Facility: [facility] Address: [address] [place] [address] Result Comment: Resu lts checked and verified.No clot detected. Performed By: #### 5 7021-8 ####[facility] LABIA [id number] [place] [address] [place] RBC (Bld) [#/Vol] 2.33 10*6/uL Low 4.20-6.00 [facility] Comment on above: Order Comment: Speci men Type: BLOOD SPECIMENOrdering Facility: [facility] Address: [address] [place] [address] Performed By: #### 5 7021-8 ####[facility] LABCLIA [id number] [place] [address] [place] WBC (Bld) [#/Vol] 5.50 10*3/uL Normal 3.70-11.00 [facility] Comment on above: Order Comment: Speci men Type: BLOOD SPECIMENOrdering Facility: [facility] Address: [address] [place] [address] Performed By: #### 5 7021-8 ####[facility] LABCLIA [id number] DILLON HERNANDEZ [id number] [place] [address] [place] CBC W/Diff, Automatedon 11-02 Absolute Neut Normal 2.0-7.7 [facility] Comment on above: Result Comment: Canc elled via OM: Order cancelled - Patient discharged Performed By: #### L 500.2500, L100.0100 ####[facility] [address] [place], [address] HCT Normal 40-54 [facility] Comment on above: Result Comment: Canc elled via OM: Order cancelled - Patient discharged Performed By: #### L 500.2500, L100.0100 ####[facility] [address] [place], [address] HGB Normal 13.0-16.5 [facility] Comment on above: Result Comment: Canc elled via OM: Order cancelled - Patient discharged Performed By: #### L 500.2500, L100.0100 ####[facility] [address] [place], [address] MCH Normal 27.0-32.0 [facility] Comment on above: Result Comment: Canc elled via OM: Order cancelled - Patient discharged Performed By: #### L 500.2500, L100.0100 ####[facility] [address] [place], [address] MCHC Normal 32-36 [facility] Comment on above: Result Comment: Canc elled via OM: Order cancelled - Patient discharged Performed By: #### L 500.2500, L100.0100 ####[facility] [address] [place], [address] MCV Normal 80-94 [facility] Comment on above: Result Comment: Canc elled via OM: Order cancelled - Patient discharged Performed By: #### L 500.2500, L100.0100 ####[facility] [address] [place], [address] NEUT% Normal 47-70 [facility] Comment on above: Result Comment: Canc elled via OM: Order cancelled - Patient discharged Performed By: #### L 500.2500, L100.0100 ####[facility] [address] [place], [address] PLT Normal 150-450 [facility] Comment on above: Result Comment: Canc elled via OM: Order cancelled - Patient discharged Performed By: #### L 500.2500, L100.0100 ####[facility] [address] [place], [address] RBC Normal 4.6-6.2 [facility] Comment on above: Result Comment: Canc elled via OM: Order cancelled - Patient discharged Performed By: #### L 500.2500, L100.0100 ####[facility] [address] [place], [address] RDW CV Normal 11.6-14.6 [facility] Comment on above: Result Comment: Canc elled via OM: Order cancelled - Patient discharged Performed By: #### L 500.2500, L100.0100 ####[facility] [address] [place], [place], [address] RDW SD Normal 35.1-43.9 [facility] Comment on above: Result Comment: Canc elled via OM: Order cancelled - Patient discharged Performed By: #### L 500.2500, L100.0100 ####[facility] [address] [place], [address] WBC Normal 4.4-11.0 [facility] Comment on above: Result Comment: Canc elled via OM: Order cancelled - Patient discharged Performed By: #### L 500.2500, L100.0100 ####[facility] [address] [place], [address] CMV IgG Qnon 11-13-2024 CMV IGG QUAL Negative Normal Negative [facility] Comment on above: Order Comment: Speci men Type: BLOOD SPECIMENOrdering Facility: [facility] Address: [address] [place] [address] Result Comment: No s erological evidence of past exposure to Cytomegalovirus. Cannot exclude recent infection if the specimen collected within 4-6 weeks after infection. Performed By: #### 7 852-7, MEASLG, VZVG2, 1988-10 ####[facility] LABCLIA [id number] [place] [address] [place] CMV IgG SerPl-aCncon 025 CMV IgG Qn 0.37 U/mL Normal [facility] Comment on above: Order Comment: Speci men Type: BLOOD SPECIMENOrdering Facility: [facility] Address: [address] [place] [address] Result Comment: The magnitude of the measured result is not indicative of the amount of antibody present.U/mL values are interpreted as follows:Negative <0.6Equivocal 0.6 to <0.70Positive >=0.70 Performed By: #### 7 852-7, MEASLG, VZVG2, 1988-10 ####[facility] LABCLIA [id number] [place] [address] [place] CONSULT PROGon 11-13-2024 CONSULT PROG Normal [facility] CYTOLOGY NON-GYNon AP DISCLAIMER Normal [facility] Comment on above: Order Comment: Speci men Type: FLUID SPECIMENOrdering Facility: [facility] Address: [address] [place] [address] Result Comment: Shellie pugh Developed Test (LDT) Disclaimer:Performance characteristics of immunohistochemical, immunofluorescent, and chromogenic in-situ hybridization tests have been determined by the performing laboratory within [facility]'s [facility] Pathology and Laboratory Medicine Department ([facility], [facility], [facility], [facility], [facility], [facility], or [facility]) in a manner consistent with CLIA requirements. One or more of these tests may not have been cleared or approved by the FDA. RT[facility]PLM is regulated under CLIA as qualified to perform high-complexity testing. These tests are used for clinical purposes. These should not be regarded as investigational or for research. Positive and negative controls stain appropriately. Performed By: #### C YTONON ####[facility] LABCLIA [id number] [place] [address] [place] CASE REPORT Normal [facility] Comment on above: Order Comment: Speci men Type: FLUID SPECIMENOrdering Facility: [facility] Address: [address] [place] [address] Result Comment: [facility] Cytology Report Case: [id number] Provider: Deb Fox MD Collected: 11/13/2024 02:46 PMOrdering Location: [place] [address] Received: 11/15/2024 05:01 AMPathologist: Foster Newton MDSpecimen: Urine, Midstream Performed By: #### C YTONON ####[facility] LABIA [id number] [place] [address] [place] CLINICAL HISTORY Staghorn calculi, s/ p L sided stenting with hematuria Normal [facility] Comment on above: Order Comment: Speci men Type: FLUID SPECIMENOrdering Facility: [facility] Address: [address] [place] [address] Performed By: #### C YTONON ####[facility] LABCLIA [id number] [place] [id number] [place] DIAGNOSIS COMMENT Normal [facility] Comment on above: Order Comment: Speci men Type: FLUID SPECIMENOrdering Facility: [facility] Address: [address] [place] [address] Result Comment: A. F ungal yeast forms are seen, morphologically consistent with Mary species. Clinical correlation is suggested. Performed By: #### C YTONON ####[facility] LABCLIA [id number] [address] [place] FINAL DIAGNOSIS Normal [facility] Comment on above: Order Comment: Speci men Type: FLUID SPECIMENOrdering Facility: [facility] Address: [address] [place] [address] Result Comment: A - Urine, Voided: Negative for high-grade urothelial carcinoma. Abundant acute inflammation (see comment). at 1141 EDT Performed By: #### C YTONON ####[facility] LABCLIA [id number] [address] STATES OF [facility] FINAL PERFORMING LAB Normal [facility] Comment on above: Order Comment: Speci men Type: FLUID SPECIMENOrdering Facility: [facility] Address: [address] [place] [address] Result Comment: Tech nical component, swimming pool installer screening performed at: [facility], [address] [place] [address] CLIA: [id number] interpretation performed at: [facility], [address] [place] [address] CLIA# [id number] Director: Titi Voss MD Performed By: #### C YTONON ####[facility] LABCLIA [id number] [address] [place] GROSS DESCRIPTION Normal [facility] Comment on above: Order Comment: Speci men Type: FLUID SPECIMENOrdering Facility: [facility] Address: [address] [place] [address] Result Comment: A. U rine, [id number] cc cloudy willow fluid . ThinPrep prepared. Performed By: #### C YTRAMÓNN ####[facility] LABCLIA [id number] [id number], [place] [address] [facility] Comprehensive Metabolic Prof ilon 11-13-2024 ALB Normal 3.5-5.0 [facility] Comment on above: Result Comment: Canc elled via OM: Order cancelled - Patient discharged Performed By: #### L 500.4050 ####[facility] [address] [place], [address] ALK PHOS Normal 40-129 [facility] Comment on above: Result Comment: Canc elled via OM: Order cancelled - Patient discharged Performed By: #### L 500.4050 ####[facility] [address] [place], [address] ALT Normal <=46 [facility] Comment on above: Result Comment: Canc elled via OM: Order cancelled - Patient discharged Performed By: #### L 500.4050 ####[facility] [address] [place], [address] AST Normal <=37 [facility] Comment on above: Result Comment: Canc elled via OM: Order cancelled - Patient discharged Performed By: #### L 500.4050 ####[facility] [address] [place], [address] BUN Normal 4-19 [facility] Comment on above: Result Comment: Canc elled via OM: Order cancelled - Patient discharged Performed By: #### L 500.4050 ####[facility] [address] [place], [address] Result Comment: Canc elled via OM: MD Ordered Performed By: #### L 500.2500, L100.0100 ####[facility] [address] [place], [address] BUN/CRE Normal 10-20 [facility] Comment on above: Result Comment: Canc elled via OM: Order cancelled - Patient discharged Performed By: #### L 500.4050 ####[facility] [address] [place], [address] Result Comment: Canc elled via OM: MD Ordered Performed By: #### L 500.2500, L100.0100 ####[facility] [address] [place], [address] Calcium Normal 7.6-11.0 [facility] Comment on above: Result Comment: Canc elled via OM: Order cancelled - Patient discharged Performed By: #### L 500.4050 ####[facility] [address] [place], [address] Result Comment: Canc elled via OM: MD Ordered Performed By: #### L 500.2500, L100.0100 ####[facility] [address] [place], [address] CL Normal 98-108 [facility] Comment on above: Result Comment: Canc elled via OM: Order cancelled - Patient discharged Performed By: #### L 500.4050 ####[facility] [address] [place], [address] Result Comment: Canc elled via OM: MD Ordered Performed By: #### L 500.2500, L100.0100 ####[facility] [address] [place], [address] CO2 Normal 21.0-32.0 [facility] Comment on above: Result Comment: Canc elled via OM: Order cancelled - Patient discharged Performed By: #### L 500.4050 ####[facility] [address] [place], [address] Result Comment: Canc elled via OM: MD Ordered Performed By: #### L 500.2500, L100.0100 ####[facility] [address] [place], [address] CREAT,SERUM Normal 0.70-1.20 [facility] Comment on above: Result Comment: Canc elled via OM: Order cancelled - Patient discharged Performed By: #### L 500.4050 ####[facility] [address] [place], [address] Result Comment: Canc elled via OM: MD Ordered Performed By: #### L 500.2500, L100.0100 ####[facility] [address] [place], [address] eGFR Normal >60 [facility] Comment on above: Result Comment: Canc elled via OM: Order cancelled - Patient discharged Performed By: #### L 500.4050 ####[facility] [address] [place], [address] Result Comment: Canc elled via OM: MD Ordered Performed By: #### L 500.2500, L100.0100 ####[facility] [address] [place], [address] GAP Normal 5-15 [facility] Comment on above: Result Comment: Canc elled via OM: Order cancelled - Patient discharged Performed By: #### L 500.4050 ####[facility] [address] [place], [address] Result Comment: Canc elled via OM: MD Ordered Performed By: #### L 500.2500, L100.0100 ####[facility] [address] [place], [address] GLU Normal 70-99 [facility] Comment on above: Result Comment: Canc elled via OM: Order cancelled - Patient discharged Performed By: #### L 500.4050 ####[facility] [address] [place], [address] Result Comment: Canc elled via OM: MD Ordered Performed By: #### L 500.2500, L100.0100 ####[facility] [address] [place], [address] Potassium Normal 3.3-5.1 [facility] Comment on above: Result Comment: Canc elled via OM: Order cancelled - Patient discharged Performed By: #### L 500.4050 ####[facility] [address] [place], [address] Result Comment: Canc elled via OM: MD Ordered Performed By: #### L 500.2500, L100.0100 ####[facility] [address] [place], [address] T BILI Normal 0.00-1.30 [facility] Comment on above: Result Comment: Canc elled via OM: Order cancelled - Patient discharged Performed By: #### L 500.4050 ####[facility] [address] [place], [address] T PROT Normal 5.9-8.4 [facility] Comment on above: Result Comment: Canc elled via OM: Order cancelled - Patient discharged Performed By: #### L 500.4050 ####[facility] [address] [place], [address] Comprehensive Metabolic Profil Normal 133-145 [facility] Comment on above: Result Comment: Canc elled via OM: Order cancelled - Patient discharged Performed By: #### L 500.4050 ####[facility] [address] [place], [address] Result Comment: Canc elled via OM: MD Ordered Performed By: #### L 500.2500, L100.0100 ####[facility] [address] [place], [address] EBV capsid IgG Qn (S)on 11-02 EBV VCA IGG, QUAL Positive Abnormal Negative [facility] Comment on above: Order Comment: Speci men Type: BLOOD SPECIMENOrdering Facility: [facility] Address: [address] [place] [address] Result Comment: The result suggests recent or past EBV infection. The final interpretation should be done in the context of other EBV serology panel results. Performed By: #### 8 039-0, 7885-7 ####[facility] LABCLIA [id number] [place] [address] [place] Fibrinogen PPP-mCncon 2024 Fibrinogen Coag (PPP) [Mass/Vol] 94 mg/dL Low 200-400 [facility] Comment on above: Order Comment: [facility] Type: BLOOD SPECIMENOrdering Facility: [facility] Address: [address] [place] [address] Result Comment: Samp le checked for clot. Performed By: #### 3 4528-0, 3255-7 ####[facility] LABIA [id number] [place] [address] [place] HBV core Ab Ser Qlon 025 HBV core Ab Ql (S) Negative Normal Negative [facility] Comment on above: Order Comment: [facility] Type: BLOOD SPECIMENOrdering Facility: [facility] Address: [address] [place] [address] Result Comment: No e vidence of current or past infection with Hepatitis B virus. Should recent infection be suspected, repeat testing may be considered 3-4 weeks after this draw. Performed By: #### 3 1201-7, 89187-7, AHAVG, 5195-3, 10276-5 ####[facility] LABIA [id number] [place] [address] [place] HBV surface Ab Ql (S)on 11-02 HBV surface Ab Qn (S) <8.00 Normal [facility] Comment on above: Order Comment: [facility] Type: BLOOD SPECIMENOrdering Facility: [facility] Address: [address] [place] [address] Result Comment: <8 m IU/mL: No serological evidence of immunity to Hepatitis B Virus.>/= 8 to <12 mIU/mL: No serological evidence of immunity to Hepatitis B Virus.>/= 12 mIU/mL: Consistent with serological evidence of immunity to Hepatitis B Virus. Performed By: #### 3 1201-7, 93984-4, [facility], 5195-3, 85513-7 ####[facility] LABCLIA [id number] [place] [address] [place] HBV surface Ab Ser Qlon 11-02 HBV surface Ab Ql (S) Negative Normal [facility] Comment on above: Order Comment: Speci men Type: BLOOD SPECIMENOrdering Facility: [facility] Address: [address] [place] [address] Result Comment: No s erological evidence of immunity to Hepatitis B Virus. Performed By: #### 3 1201-7, 76082-7, [facility], 5195-3, 28003-2 ####[facility] LABIA [id number] [place] [address] [place] HBV surface Ag Ser Qlon 11-02 HBV surface Ag Ql (S) Negative Normal Negative [facility] Comment on above: Order Comment: Speci men Type: BLOOD SPECIMENOrdering Facility: [facility] Address: [address] [place] [address] Performed By: #### 3 1201-7, 42146-5, [facility], 5-3, 61865-9 ####[facility] [id number] [place] [address] [place] HCV Ab Ser Qlon 11-13-2024 HCV Ab Ql (S) Negative Normal Negative [facility] Comment on above: Order Comment: Speci men Type: BLOOD SPECIMENOrdering Facility: [facility] Address: [address] [place] [address] Result Comment: The result suggests no evidence of infection with Hepatitis C virus. Should recent infection be suspected, repeat testing may be considered 4-6 weeks after this draw. Performed By: #### 1 6128-1 ####[facility] LABIA [id number] [place] [address] [place] HEPATITIS A ANTIBODY, IGGon 11-13-2024 HAV IgG Ql (S) Negative Normal [facility] Comment on above: Order Comment: Speci men Type: BLOOD SPECIMENOrdering Facility: [facility] Address: [address] [place] [address] Result Comment: No s erological evidence of past exposure to hepatitis A virus or hepatitis A vaccination. Should recent infection be suspected, repeat testing is suggested 3-4 weeks after this draw. Performed By: #### 3 1201-7, 38338-9, AH[facility], 5195-3, 06498-0 ####[facility] LABIA [id number] [place] [address] [place] Performed By: #### 7 3752-8, AHAVG, STRSER, MUMPSG ####[facility] LABIA [id number] [place] [address] [place] HIV 1+2 Ab IA Qlon HIV 1 and 2 Ab IA.rapid Nom (S/P/Bld) Normal [facility] Comment on above: Order Comment: Speci men Type: BLOOD SPECIMENOrdering Facility: [facility] Address: [address] [place] [address] Result Comment: Test not indicated. Performed By: #### 3 1201-7, 65034-0, AHAVG, 5195-3, 76852-7 ####[facility] LABIA [id number] [place] [address] [place] HIV 1+2 Ab+HIV1 p24 Ag IA Ql Non-Reactive Normal Nonreactive [facility] Comment on above: Order Comment: Speci men Type: BLOOD SPECIMENOrdering Facility: [facility] Address: [address] [place] [address] Performed By: #### 3 1201-7, 37202-3, [facility], 5195-3, 97630-1 ####[facility] LABIA [id number] [place] [address] [place] HIV immunoassay testing algorithm interpretation (S/P/Bld) [Interp] Normal [facility] Comment on above: Order Comment: Speci men Type: BLOOD SPECIMENOrdering Facility: [facility] Address: [address] [place] [address] Result Comment: No e vidence of HIV-1 or HIV-2 infection. Should recent infection be suspected, repeat testing may be considered 2-3 weeks after this draw.Davis Rev. Code 3701.243(E): This information has been disclosed to you from confidential records protected from disclosure by state law. ???You shall make no further disclosure of this information without the specific, written, and informed release of the individual to whom it pertains or as otherwise permitted by state law. A general authorization for the release of medical or other information is not sufficient for the purpose of the release of HIV test results or diagnoses. Performed By: #### 3 1201-7, 50786-7, [facility], 5195-3, 56587-6 ####[facility] LABIA [id number] [place] [address] [place] Hepatic function 2000 panelo n 11-13-2024 Albumin [Mass/Vol] 2.8 g/dL Low 3.9-4.9 [facility] Comment on above: Order Comment: Speci men Type: BLOOD SPECIMENOrdering Facility: [facility] Address: [address] [place] [address] Performed By: #### 2 4321-2, 48558-4, 69022-7, 76129-1 ####[facility] LABIA [id number] [place] [address] [place] ALP [Catalytic activity/Vol] 225 U/L High 38-113 [facility] Comment on above: Order Comment: Speci men Type: BLOOD SPECIMENOrdering Facility: [facility] Address: [address] [place] [id number] Performed By: #### 2 4321-2, 91379-7, 45151-6, 91076-1 ####[facility] LABCLIA [id number] [address] [address] [place] ALT [Catalytic activity/Vol] 22 U/L Normal 10-54 [facility] Comment on above: Order Comment: Speci men Type: BLOOD SPECIMENOrdering Facility: [facility] Address: [address] [place], [place] [address] Performed By: #### 2 4321-2, 20756-7, 50410-0, 01423-1 ####[facility] LABCLIA [id number] [place] [id number] [place] AST [Catalytic activity/Vol] 36 U/L Normal 14-40 [facility] Comment on above: Order Comment: Speci men Type: BLOOD SPECIMENOrdering Facility: [facility] Address: [address] [place], [place] [address] Performed By: #### 2 4321-2, 22612-4, 83320-2, 99369-3 ####[facility] LABCLIA [id number] [address] [address] [place] Bilirubin [Mass/Vol] 1.8 mg/dL High 0.2-1.3 [facility] Comment on above: Order Comment: Speci men Type: BLOOD SPECIMENOrdering Facility: [facility] Address: [address] [place], [place] [address] Performed By: #### 2 4321-2, 48283-6, 22327-8, 93245-5 ####[facility] LABCLIA [id number] [address] [address] [place] Bilirubin.conjugated [Mass/Vol] 0.9 mg/dL High <0.3 [facility] Comment on above: Order Comment: Speci men Type: BLOOD SPECIMENOrdering Facility: [facility] Address: [address] [place] [address] Performed By: #### 2 4321-2, 42004-5, 80512-4, 36659-6 ####[facility] LABCLIA [id number] [place] [address] [place] Protein [Mass/Vol] 5.2 g/dL Low 6.3-8.0 [facility] Comment on above: Order Comment: Speci men Type: BLOOD SPECIMENOrdering Facility: [facility] Address: [address] [place] [address] Performed By: #### 2 4321-2, 81450-7, 38110-0, 84951-4 ####[facility] LABCLIA [id number] [place] [id number] [place] LIVER REC INIT W/Uon 025 ALLOGEN RESULTS TO FOLLOW See Allogen report to follow Normal [facility] Comment on above: Order Comment: Speci men Type: BLOOD SPECIMENOrdering Facility: [facility] Address: [address] [place] [address] Performed By: #### L RIPW ####[facility] [id number] [place] [id number] [place] LPa SerPl-mCncon 11-13-2024 Lipoprotein a [Mass/Vol] mg/dL Normal <30 [facility] Comment on above: Order Comment: Speci men Type: BLOOD SPECIMENOrdering Facility: [facility] Address: [address] [place] [address] Performed By: #### 1 0835-7 ####[facility] LABCLIA [id number] [place] [id number] [place] Lipid 1996 panelon 5 Cholesterol [Mass/Vol] 52 mg/dL Normal <200 [facility] Comment on above: Order Comment: Speci men Type: BLOOD SPECIMENOrdering Facility: [facility] Address: [address] [place] [address] Result Comment: <200 mg/dL, Desirable 200-239 mg/dL, Borderline high>239 mg/dL, High Performed By: #### 2 4321-2, 54911-1, 85015-7, 22293-4 ####[facility] LABCLIA [id number] [facility] [id number] [address] [place] Cholesterol in HDL [Mass/Vol] 17 mg/dL Low >39 [facility] Comment on above: Order Comment: Speci men Type: BLOOD SPECIMENOrdering Facility: [facility] Address: [address] [place] [address] Result Comment: 40-5 9 mg/dL, Acceptable>59 mg/dL, High: Negative risk factor for coronary heart disease<40 mg/dL, Low: Positive risk factor for coronary heart disease Performed By: #### 2 4321-2, 47929-4, 86893-6, 19964-5 ####[facility] LABCLIA [id number] [facility] [id number] [address] [place] Cholesterol in LDL [Mass/Vol] 26 mg/dL Normal <100 [facility] Comment on above: Order Comment: Speci men Type: BLOOD SPECIMENOrdering Facility: [facility] Address: [address] [place] [address] Result Comment: <100 mg/dL, Optimal 100-129 mg/dL, Near optimal/above optimal 130-159 mg/dL, Borderline high 160-189 mg/dL, High>189 mg/dL, Very highSecondary prevention optimal LDL Cholesterol levels are recommended to be < 70 mg/dL Performed By: #### 2 4321-2, 29846-0, 27164-6, 45347-0 ####[facility] LABCLIA [id number] [facility] [address] [id number], [place] [address] [place] Cholesterol in LDL/Cholesterol in HDL [Mass ratio] 1.53 {ratio} Normal <2.54 [facility] Comment on above: Order Comment: Speci men Type: BLOOD SPECIMENOrdering Facility: [facility] Address: [address] [place] [address] Result Comment: Demetrio haines:1. National Cholesterol Education Program ATP III Guideline At-A-Glance Quick Desk Reference: National Heart, Lung, and Blood [place]. National Institutes of Health. 2001: NIH Publication No. 01-3305.2. An International Atherosclerosis Society position paper: global recommendations for the management of dyslipidemia: executive summary, Atherosclerosis. 2014: 232(2):410-413. Performed By: #### 2 4321-2, 69662-7, 01899-6, 32743-5 ####[facility] LABCLIA [id number] [place] [id number] [place] Cholesterol in VLDL [Mass/Vol] 9 mg/dL Normal <30 [facility] Comment on above: Order Comment: Speci men Type: BLOOD SPECIMENOrdering Facility: [facility] Address: [address] [place] [address] Performed By: #### 2 4321-2, 08816-1, 59909-3, 34385-1 ####[facility] LABCLIA [id number] [address] [address] [place] Cholesterol non HDL [Mass/Vol] 35 mg/dL Normal <130 [facility] Comment on above: Order Comment: Speci men Type: BLOOD SPECIMENOrdering Facility: [facility] Address: [address] [place] [address] Result Comment: <130 mg/dL, Optimal 130-159 mg/dL, Near optimal/above optimal 160-189 mg/dL, Borderline high 190-219 mg/dL, High>219 mg/dL, Very highSecondary prevention optimal non HDL Cholesterol levels are recommended to be <100 mg/dL Performed By: #### 2 4321-2, 73550-8, 18861-0, 36355-3 ####[facility] LABCLIA [id number] [address] [place] [address] [place] Cholesterol.total/Donna sterol in HDL [Mass ratio] 3.06 {ratio} Normal <5.10 [facility] Comment on above: Order Comment: Speci men Type: BLOOD SPECIMENOrdering Facility: [facility] Address: [address] [place] [address] Performed By: #### 2 4321-2, 17343-7, 78992-4, 59916-1 ####[facility] LABCLIA [id number] [address] [place] FASTING TIME 4 hrs Normal [facility] Comment on above: Order Comment: Speci men Type: BLOOD SPECIMENOrdering Facility: [facility] Address: [address] [place] [address] Performed By: #### 2 4321-2, 33478-3, 81439-4, 51051-1 ####[facility] LABCLIA [id number] [place] [address] [place] Triglyceride [Mass/Vol] 45 mg/dL Normal <150 C [facility] Comment on above: Order Comment: Speci men Type: BLOOD SPECIMENOrdering Facility: [facility] Address: [address] [place] [address] Result Comment: <150 mg/dL, Normal 150-199 mg/dL, Borderline high 200-499 mg/dL, High>499 mg/dL, Very high Performed By: #### 2 4321-2, 80354-4, 58925-6, 51334-5 ####[facility] LABCLIA [id number] [place] [address] [place] MUMPS IGG ABon 11-13-2024 MuV IgG Ql (S) Negative Abnormal Positive [facility] Comment on above: Order Comment: Speci men Type: BLOOD SPECIMENOrdering Facility: [facility] Address: [address] [place] [address] Result Comment: The result suggests no history of Mumps vaccination or exposure to Mumps virus, however, some individuals with past history of Mumps vaccination may test negative using this test. Please correlate with past history of vaccination if applicable. Performed By: #### 7 3752-8, AHAVG, STRSER, MUMPSG ####[facility] LABCLIA [id number] [address] [place] NT-proBNP SerPl-mCncon 11-13 Natriuretic peptide.B prohormone N-Terminal [Mass/Vol] 1047 pg/mL High <125 [facility] Comment on above: Order Comment: Speci men Type: BLOOD SPECIMENOrdering Facility: [facility] Address: [address] [place] [address] Performed By: #### 2 4321-2, 40328-2, 02974-4, 28081-0 ####[facility] LABCLIA [id number] [place] [address] [place] NURSING PROGon 11-13-2024 NURSING PROG Normal [facility] NURSING PROG Normal [facility] PHOSPHATIDYLETHANOL (PETH)on 11-13-2024 EER PETH See Note Normal [facility] Comment on above: Order Comment: Speci men Type: BLOOD SPECIMENOrdering Facility: [facility] Address: [address] [place] [address] Result Comment: Auth orized individuals can access the [facility] Enhanced Reportwith an [facility] Connect account using the following link.Your local lab can assist you in obtaining the patientreport if you don't have a Connect account.[email or web address] Performed By: #### P ETH ####[facility] [id number] [place] [address] PETH 16:0/18.2 (PLPETH) <10 Normal C [facility] Comment on above: Order Comment: Speci men Type: BLOOD SPECIMENOrdering Facility: [facility] Address: [address] [place] [address] Result Comment: Refe rence ranges are not well established. Performed By: #### P ETH ####[facility]IES[facility]IA [id number] [place] [address] PETH 16:0/18:1 (POPETH) <10 Normal C [facility] Comment on above: Order Comment: Speci men Type: BLOOD SPECIMENOrdering Facility: [facility] Address: [address] [place] [address] Result Comment: PEth 16:0/18:1 (POPEth)Less than 10 ng/mL............Not detectedLess than 20 ng/mL............Abstinence or light ynhnhenzkaskkatwfa00 - 200 ng/mL................Moderate alcohol consumptionGreater than 200 ng/mL........Heavy alcohol consumption or chronicalcohol use(Reference: Alonso Landaverde and Mathew Ha 2018 J. Forensic Sci) Performed By: #### P ETH ####[facility] [id number] [place] [address] PETH INTERPRETATION See Comment [facility] Comment on above: Order Comment: Speci men Type: BLOOD SPECIMENOrdering Facility: [facility] Address: [address] [place] [address] Result Comment: Phos phatidylethanol (PEth) is a group of phospholipids formed inthe presence of ethanol, phospholipase D and phosphatidylcholine.PEth is known to be a direct alcohol biomarker. The predominantPEth homologues are PEth 16:0/18:1 (POPEth) and PEth 16:0/18:2(PLPEth), which account for 37-46% and 26-28% of the total PEthhomologues, respectively. PEth is incorporated into thephospholipid membrane of red blood cells and has a generalhalf-life of 4-10 days and a window of detection of 2-4 weeks.However, the window of detection is longer in individuals whochronically or excessively consume alcohol. The limit ofquantification is 10 ng/mL. Serial monitoring of PEth may behelpful in monitoring alcohol abstinence over time. PEth resultsshould be interpreted in the context of the patient's clinical andbehavioral history.Patients with advanced liver disease may have falsely elevatedPEth concentrations (Andra WHIPPLE et al 2018, Alcoholism Clinical &Experimental Research).This test was developed and its performance characteristicsdetermined by [facility]. It has not been cleared orapproved by the U.S. Food and Drug Administration. This test wasperformed in a CLIA-certified laboratory and is intended forclinical purposes.Performed By: [facility] [place], [place] [address]Hshxdjsvai Director: Lizandro Ordonez MD, PhDCLIA Number: [id number] Performed By: #### P ETH ####[facility] LABORATORIESIA [id number] [place] [address] PT panel Coag (PPP)on 2024 INR Coag (PPP) [Relative time] 1.9 {INR} High 0.9-1.3 [facility] Comment on above: Order Comment: Speci men Type: BLOOD SPECIMENOrdering Facility: [facility] Address: [address] [place] [address] Result Comment: Sarah min K Antagonist (VKA) Therapeutic Range: INR 2 to 3 (Target INR of 2.5)Note: For patients treated with VKA drugs, such as warfarin, the [place] [employer] 2012 Guideline recommends a therapeutic INR range of 2 to 3 (target INR of 2.5). This recommendation includes high-risk patients with antiphospholipid syndrome with previous arterial or venous thromboembolism, current-generation mechanical or bioprosthetic aortic heart valve replacement.Note: Patients with mechanical aortic valve replacement and additional risk factors for thromboembolic events (atrial fibrillation, previous thromboembolism, LV dysfunction, hypercoagulable conditions) or an older generation mechanical AVR (i.e., ball in-Cage) or any mechanical MVR should have a INR therapeutic range of 2.5 to 3.5 (target INR of 3).Tammi GH, et al. Chest 2012, 141:7S-47SNishimura RA, et al. JACC 2017, 70: 252-289 Performed By: #### 3 4528-0, 3255-7 ####[facility] LABCLIA [id number] [address] [place] PT Coag (PPP) [Time] 19.9 s High 9.7-13.0 [facility] Comment on above: Order Comment: Speci men Type: BLOOD SPECIMENOrdering Facility: [facility] Address: [address] [place] [address] Performed By: #### 3 4528-0, 3255-7 ####[facility] LABCLIA [id number] [place] [address] [facility] [place] Pathology biopsy report Marco Antonio (Tiss)on 11-13-2024 AP DISCLAIMER Normal [facility] Comment on above: Order Comment: Speci men Type: TISSUE SPECIMENOrdering Facility: [facility] Address: [address] [place] [address] Result Comment: Shellie pugh Developed Test (LDT) Disclaimer:Performance characteristics of immunohistochemical, immunofluorescent, and chromogenic in-situ hybridization tests have been determined by the performing laboratory within [facility]'s [facility] Path[facility] and Laboratory Medicine Department ([facility], [facility], [facility], [facility], [facility], [facility], or [facility]) in a manner consistent with CLIA requirements. One or more of these tests may not have been cleared or approved by the FDA. [facility] is regulated under CLIA as qualified to perform high-complexity testing. These tests are used for clinical purposes. These should not be regarded as investigational or for research. Positive and negative controls stain appropriately. Performed By: #### 6 6121-5 ####[facility]ORYCLIA [id number] [address] STATES OF [facility] LABCLIA [id number] [place] [address] [place] CASE REPORT Normal [facility] Comment on above: Order Comment: Speci men Type: TISSUE SPECIMENOrdering Facility: [facility] Address: [address] [place] [address] Result Comment: Surg ical Pathology Report Case: [id number] Provider: Thai Pineda MD Collected: 11/13/2024 09:40 AMOrdering Location: [place] [address] Received: 11/15/2024 03:18 PMPathologist: Axel Berger MDSpecimen: Esophagus, Biopsy, r/o esophageal candidiasis Performed By: #### 6 6121-5 ####[facility]ORYCLIA [id number] [address] LABCLIA [id number] [address] [place] FINAL DIAGNOSIS Normal [facility] Comment on above: Order Comment: Speci men Type: TISSUE SPECIMENOrdering Facility: [facility] Address: [address] [place] [address] Result Comment: Esop hagus, biopsy:- Squamous mucosal candidiasis.JEL 11/16/2024 at 1034 EDT Performed By: #### 6 6121-5 ####[facility] LABORATORYCLIA [id number] [address] LABCLIA [id number] [address] FINAL PERFORMING LAB Normal [facility] Comment on above: Order Comment: Speci men Type: TISSUE SPECIMENOrdering Facility: [facility] Address: [address] [place] [address] Result Comment: Diag nostic interpretation performed at: [facility], [address] [place] [address] CLIA# [id number] Director: Rick Harris MD Performed By: #### 6 6121-5 ####[facility] LABORATORYCLIA [id number] [address] LABCLIA [id number] [place] [id number] [place] GROSS DESCRIPTION Normal [facility] Comment on above: Order Comment: Speci men Type: TISSUE SPECIMENOrdering Facility: [facility] Address: [address] [place], [place] [address] Result Comment: Jann iglesias, BiopsyReceived in formalin are multiple pieces of espitia, soft tissue aggregating to 0.9 x 0.2 x 0.2 cm. Totally submitted in one cassette.BC November 15, 2024 4:50 PMGross examination performed at [facility], [address] [place] [address] Performed By: #### 6 6121-5 ####[facility]ORYCLIA [id number] [address] STATES OF [facility] LABCLIA [id number] [place] [address] [place] Phosphate SerPl-mCncon 11-13 Phosphate [Mass/Vol] 1.5 mg/dL Low 2.7-4.8 [facility] Comment on above: Order Comment: Speci men Type: BLOOD SPECIMENOrdering Facility: [facility] Address: [address] [place] [address] Performed By: #### 2 777-1, 3016-3 ####[facility] H[facility]PITAL[facility] [id number] [place] [address] [place] RUBEOLA (MEASLES)IGGon 11-13 MEASLES IGG AB, QUAL Positive Normal Positive [facility] Comment on above: Order Comment: Speci men Type: BLOOD SPECIMENOrdering Facility: [facility] Address: [address] [place] [address] Result Comment: The result suggests recent or past exposure to Measles virus or Measles vaccination. The current test does not detect neutralizing antibodies. Positive result may also be seen due to presence of passively-transferred antibodies. Please correlate with patient's history. Performed By: #### 7 852-7, MEASLG, VZVG2, 1988- ####[facility] LABCLIA [id number] [place] [address] [place] Reagin and Treponema pallidu m IgG and IgM [Interp]on 11-13-2024 T. pallidum IgG+IgM IA Ql (S) Non-Reactive Normal Nonreactive [facility] Comment on above: Order Comment: Speci men Type: BLOOD SPECIMENOrdering Facility: [facility] Address: [address] [place] [address] Performed By: #### 7 3752-8, SHMUEL SORENSEN MUMPSG ####[facility] LABCLIA [id number] [place] [address] [place] Reagin+T pallidum IgG+IgM Se rPl-Impon 11-13-2024 Reagin and Treponema pallidum IgG and IgM [Interp] Cannot exclude recent Treponemal infection if specimen collected within 7-10 days after appearance of suspect lesions or 2-3 weeks after an exposure. Clinical correlation is required. Normal [facility] Comment on above: Order Comment: Speci men Type: BLOOD SPECIMENOrdering Facility: [facility] Address: [address] [place] [address] Performed By: #### 7 3752-8, SHMUEL SORENSEN MUMPSLoki ####[facility] LABCLIA [id number] [place] [address] [place] STAPHYLOCOCCUS AUREUS AND MR SA SCREEN, PCR, NASALon 11-13-2024 S. aureus and MRSA panel ANANTH+probe (Nose) Not detected Normal Not Detected [facility] Comment on above: Order Comment: Speci men Type: SWABOrdering Facility: [facility] Address: [address] [place] [address] Performed By: #### S APCR ####[facility] LABCLIA [id number] [place] [address] [place] STRONGYLOIDES IGG BLon 11-13 STRONGYLOIDES IGG QUALITATIVE Negative Normal Negative [facility] Comment on above: Order Comment: Speci men Type: BLOOD SPECIMENOrdering Facility: [facility] Address: [address] [place] [address] Performed By: #### S TRSER ####[facility] LABCLIA [id number] [place] [id number] [place] Performed By: #### 7 3752-8, AHAVGSHMUEL MUMPSG ####[facility] LABCLIA [id number] [address] [address] [place] T. gondii IgG Qn (S)on 11-13 TOXO IGG QUAL Negative Normal Negative [facility] Comment on above: Order Comment: Speci james Type: BLOOD SPECIMENOrdering Facility: [facility] Address: [address] [place] [address] Result Comment: No s erological evidence of past exposure to Toxoplasma gondii. Cannot exclude recent infection if the specimen collected within 3-4 weeks after infection. Performed By: #### 8 039-0, 7885-7 ####[facility] LABIA [id number] [address] [place] THERAPY NTon 11-13-2024 THERAPY NT Normal [facility] TOXICOLOGY PANEL BLDon 11-13 Acetaminophen [Mass/Vol] ug/mL Low 10-30 [facility] Comment on above: Order Comment: Ezekiel ramirez Type: BLOOD SPECIMENOrdering Facility: [facility] Address: [address] [place] [address] Result Comment: Toxi c > 150 ug/mL 4 hours post ingestionThe Viviana Figueroa nomogram can be used to estimate the probability of hepatotoxicity via the relationship of plasma acetaminophen concentration to the post ingestion interval. (Skylar. Pediatrics. 1975. 55:871 to 876 and Viviana et al. Arch Pricing Director Med. 1981. 141:380 to 385).Reference ranges and high/low indicator flags are provided as general guidelines only. The treating physician must determine appropriate target levels/dosing based on the specific clinical situation. Performed By: #### T OXP ####[facility] LABCLIA [id number] [place] [id number] [place] Ethanol [Mass/Vol] mg/dL Normal <11 [facility] Comment on above: Order Comment: Ezekiel ramirez Type: BLOOD SPECIMENOrdering Facility: [facility] Address: [address] [place] [address] Performed By: #### T OXP ####[facility] LABIA [id number] [place] [address] [place] Salicylates [Mass/Vol] mg/dL Low 3.0-30.0 [facility] Comment on above: Order Comment: Ezekiel ramirez Type: BLOOD SPECIMENOrdering Facility: [facility] Address: [address] [place] [address] Result Comment: The therapeutic range varies and has been reported to be 3.0 to 10.0 mg/dL for anti pyretic/analgesic conditions and 15.0 to 30.0 mg/dL for anti inflammatory/rheumatic fever conditions. Ranges published by the instrument bomb technician.Reference ranges and high/low indicator flags are provided as general guidelines only. The treating physician must determine appropriate target levels/dosing based on the specific clinical situation. Performed By: #### T OXP ####[facility] LABIA [id number] [place] [address] [place] TSH SerPl-aCncon 11-13-2024 TSH Qn 0.633 m[IU]/L Normal 0.270-4.200 [facility] Comment on above: Order Comment: Ezekiel ramirez Type: BLOOD SPECIMENOrdering Facility: [facility] Address: [address] [place] [address] Performed By: #### 2 777-1, 3016-3 ####[facility] LABIA [id number] [place] [id number] [place] Upper GI endoscopyon 025 Upper GI endoscopy Normal [facility] VARICELLA ZOSTER IGGon 11-13 VARICELLA ZOSTER IGG, QUAL Positive Normal Positive [facility] Comment on above: Order Comment: Ezekiel ramirez Type: BLOOD SPECIMENOrdering Facility: [facility] Address: [address] [place] [address] Result Comment: The result suggests recent or past exposure to Varicella-Zoster virus or chickenpox vaccination or zoster vaccination. Positive result may also be seen due to presence of passively-transferred antibodies. Please correlate with patient's history. Performed By: #### 7 852-7, MEASLG, VZVG2, 1987-10 ####[facility] LABCLIA [id number] [place] [address] [place] Vit A SerPl-mCncon Retinol [Mass/Vol] 0.03 mg/L Low 0.30-1.20 [facility] Comment on above: Order Comment: Ezekiel ramirez Type: BLOOD SPECIMENOrdering Facility: [facility] Address: [address] [place] [address] Result Comment: This test was developed, and its performance characteristics determined by the [facility] Department of Pathology and Laboratory Medicine. It has not been cleared or approved by the FDA. The [facility] Department of Pathology and Laboratory Medicine is regulated under CLIA as qualified to perform high-complexity testing. This test is used for clinical purposes. It should not be regarded as investigational or for research. Performed By: #### 2 923-1, 1823-4 ####[facility] LABCLIA [id number] [address] STATES OF [facility] Zinc SerPl-mCncon 11-13-2024 Zinc [Mass/Vol] 60 ug/dL Normal 60-120 [facility] Comment on above: Order Comment: Ezekiel ramirez Type: BLOOD SPECIMENOrdering Facility: [facility] Address: [address] [place] [address] Result Comment: This test was developed, and its performance characteristics determined by the [facility] Department of Pathology and Laboratory Medicine. It has not been cleared or approved by the FDA. The [facility] Department of Pathology and Laboratory Medicine is regulated under CLIA as qualified to perform high-complexity testing. This test is used for clinical purposes. It should not be regarded as investigational or for research. Performed By: #### 5 763-8 ####[facility] LABCLIA [id number] [place] [address] [place] AFP SerPl-mCncon 11-12-2024 AFP [Mass/Vol] 2.25 ng/mL Normal <9.00 [facility] Comment on above: Order Comment: Speci men Type: BLOOD SPECIMENOrdering Facility: [facility] Address: [address] [place] [address] Result Comment: The Alpha-Fetoprotein test was performed using the Fiordaliza Liquiteriael DxI immunoenzymatic assay. Results obtained with different assay methods or kits cannot be used interchangeably. Performed By: #### 1 834-1 ####[facility] LABCLIA [id number] [address] ARTERIAL BLOOD GASESon 11-12 Base deficit (BldA) [Moles/Vol] -8 mmol/L Low -2-0 [facility] Comment on above: Order Comment: Speci men Type: ARTERIAL BLOOD SPECIMENOrdering Facility: [facility] Address: [address] [place] [address] Performed By: #### A LLBG ####[facility] LABCLIA [id number] [address] Body temperature 98.6 [degF] Normal [facility] Comment on above: Order Comment: Speci men Type: ARTERIAL BLOOD SPECIMENOrdering Facility: [facility] Address: [address] [place] [address] Performed By: #### A LLBG ####[facility] LABCLIA [id number] [address] [place] Calcium.ionized (Bld) [Mass/Vol] 1.20 mmol/L Normal 1.08-1.30 [facility] Comment on above: Order Comment: Speci men Type: ARTERIAL BLOOD SPECIMENOrdering Facility: [facility] Address: [address] [place] [address] Performed By: #### A LLBG ####[facility] LABCLIA [id number] [id number] [address] [place] Calcium.ionized adjusted to pH 7.4 (BldA) [Moles/Vol] 1.24 mmol/L Normal 1.08-1.30 [facility] Comment on above: Order Comment: Speci men Type: ARTERIAL BLOOD SPECIMENOrdering Facility: [facility] Address: [address] [place] [address] Performed By: #### A LLBG ####[facility] LABCLIA [id number] [place] [address] [place] Carboxyhemoglobin (BldA) [Mass fraction] 2.0 % Normal 0.0-2.0 [facility] Comment on above: Order Comment: Speci men Type: ARTERIAL BLOOD SPECIMENOrdering Facility: [facility] Address: [address] [place] [address] Result Comment: Carb oxyhemoglobin Reference Range for Smokers: 2.0-8.0% Performed By: #### A LLBG ####[facility] LABCLIA [id number] [place] [address] [place] CO2 (Bld) [Partial pressure] 21 mm Hg Low 36-46 [facility] Comment on above: Order Comment: Speci men Type: ARTERIAL BLOOD SPECIMENOrdering Facility: [facility] Address: [address] [place] [address] Performed By: #### A LLBG ####[facility] LABCLIA [id number] [place] [address] [place] Glucose [Mass/Vol] 276 mg/dL High 60-105 [facility] Comment on above: Order Comment: Speci men Type: ARTERIAL BLOOD SPECIMENOrdering Facility: [facility] Address: [address] [place] [address] Performed By: #### A LLBG ####[facility] LABCLIA [id number] [place] [address] [place] HCO3 (Bld) [Moles/Vol] 15 mmol/L Low 22-26 [facility] Comment on above: Order Comment: Speci men Type: ARTERIAL BLOOD SPECIMENOrdering Facility: [facility] Address: [address] [place] [address] Performed By: #### A LLBG ####[facility] LABIA [id number] [place] [id number] [place] Hematocrit (Bld) [Volume fraction] 22.4 % Low 39.0-51.0 [facility] Comment on above: Order Comment: Speci men Type: ARTERIAL BLOOD SPECIMENOrdering Facility: [facility] Address: [address] [place] [address] Performed By: #### A LLBG ####[facility] LABIA [id number] [place] [address] [place] Hemoglobin (Bld) [Mass/Vol] 7.2 g/dL Low 13.0-17.0 [facility] Comment on above: Order Comment: Speci men Type: ARTERIAL BLOOD SPECIMENOrdering Facility: [facility] Address: [address] [place] [address] Performed By: #### A LLBG ####[facility] LABIA [id number] [place] [address] [place] Lactate [Moles/Vol] 2.9 mmol/L High 0.5-2.2 [facility] Comment on above: Order Comment: Speci men Type: ARTERIAL BLOOD SPECIMENOrdering Facility: [facility] Address: [address] [place] [address] Performed By: #### A LLBG ####[facility] LABIA [id number] [place] [address] [place] Methemoglobin (Bld) [Mass fraction] 1.0 % Normal 0.0-1.5 [facility] Comment on above: Order Comment: Speci men Type: ARTERIAL BLOOD SPECIMENOrdering Facility: [facility] Address: [address] [place] [address] Performed By: #### A LLBG ####[facility] LABCLIA [id number] [address] [address] [place] O2 THERAPY RA=Room Air Normal [facility] Comment on above: Order Comment: Speci men Type: ARTERIAL BLOOD SPECIMENOrdering Facility: [facility] Address: [address] [place], [place] [address] Performed By: #### A LLBG ####[facility] LABCLIA [id number] [address] [address] [place] Oxygen (Bld) [Partial pressure] 94 mm Hg Normal 85-95 [facility] Comment on above: Order Comment: Speci men Type: ARTERIAL BLOOD SPECIMENOrdering Facility: [facility] Address: [address] [place] [address] Performed By: #### A LLBG ####[facility] LABCLIA [id number] [place] [id number] [place] Oxyhemoglobin (BldA) [Mass fraction] 96 % Normal 95-98 [facility] Comment on above: Order Comment: Speci men Type: ARTERIAL BLOOD SPECIMENOrdering Facility: [facility] Address: [address] [place] [address] Performed By: #### A LLBG ####[facility] LABCLIA [id number] [place] [id number] [place] pH (Bld) 7.46 [pH] High 7.35-7.45 [facility] Comment on above: Order Comment: Speci men Type: ARTERIAL BLOOD SPECIMENOrdering Facility: [facility] Address: [address] [place], [place] [address] Performed By: #### A LLBG ####[facility] LABCLIA [id number] [address] [address] [place] PO2 / FIO2 RATIO 448 mmHg Normal >300 [facility] Comment on above: Order Comment: Speci men Type: ARTERIAL BLOOD SPECIMENOrdering Facility: [facility] Address: [address] [place] [address] Performed By: #### A LLBG ####[facility] LABCLIA [id number] [place] [address] [place] Potassium [Moles/Vol] 3.9 mmol/L Normal 3.5-5.0 [facility] Comment on above: Order Comment: Speci men Type: ARTERIAL BLOOD SPECIMENOrdering Facility: [facility] Address: [address] [place] [address] Performed By: #### A LLBG ####[facility] LABCLIA [id number] [place] [address] [place] Sodium [Moles/Vol] 124 mmol/L Low 136-144 [facility] Comment on above: Order Comment: Speci men Type: ARTERIAL BLOOD SPECIMENOrdering Facility: [facility] Address: [address] [place] [address] Performed By: #### A LLBG ####[facility] LABCLIA [id number] [place] [id number] [place] Bacteria Ur Culton Bacteria identified Cx Nom (U) Normal [facility] Comment on above: Performed By: #### 6 30-4, 70452-9 ####[facility] LABCLIA [id number] [place] [id number] [place] Basic metabolic 2000 panelon 11-12-2024 Anion gap [Moles/Vol] 11 mmol/L Normal 8-15 [facility] Comment on above: Order Comment: Speci men Type: BLOOD SPECIMENOrdering Facility: [facility] Address: [address] [place] [address] Performed By: #### 2 4321-2, 91933-1, 2777-1 ####[facility] LABCLIA [id number] [place] [id number] [place] Calcium [Mass/Vol] 9.2 mg/dL Normal 8.5-10.2 [facility] Comment on above: Order Comment: Speci men Type: BLOOD SPECIMENOrdering Facility: [facility] Address: [address] [place] [address] Performed By: #### 2 4321-2, 64563-0, 277-1 ####[facility] LABCLIA [id number] [address] [address] [place] Chloride [Moles/Vol] 99 mmol/L Normal 98-107 [facility] Comment on above: Order Comment: Speci men Type: BLOOD SPECIMENOrdering Facility: [facility] Address: [address] [place] [address] Performed By: #### 2 4321-2, 04828-1, 277- ####[facility] LABCLIA [id number] [place] [id number] [place] CO2 [Moles/Vol] 14 mmol/L Low 22-30 [facility] Comment on above: Order Comment: Speci men Type: BLOOD SPECIMENOrdering Facility: [facility] Address: [address] [place] [address] Performed By: #### 2 4321-2, 16916-0, 2776-08 ####[facility] LABCLIA [id number] [address] [address] [place] Creatinine [Mass/Vol] 1.22 mg/dL Normal 0.73-1.22 [facility] Comment on above: Order Comment: Speci men Type: BLOOD SPECIMENOrdering Facility: [facility] Address: [address] [place] [address] Performed By: #### 2 4321-2, 76625-7, 277-1 ####[facility] LABCLIA [id number] [address] [address] [place] Creatinine and Glomerular filtration rate.predicted panel (S/P/Bld) 69 mL/min/1.73m??? Normal >=60 [facility] Comment on above: Order Comment: Ezekiel ramirez Type: BLOOD SPECIMENOrdering Facility: [facility] Address: [address] [place] [address] Result Comment: Patric mated Glomerular Filtration Rate (eGFR) is calculated using the 2020 CKD-EPI creatinine equation. This equation utilizes serum creatinine, sex, and age as parameters. The creatinine assay has traceable calibration to isotope dilution-mass spectrometry. Refer to KDIGO guidelines for clinical interpretation. In patients with unstable renal function, e.g. those with acute kidney injury, the eGFR may not accurately reflect actual GFR. Performed By: #### 2 4321-2, 62195-5, 2777-1 ####[facility] [id number] [place] [address] [place] Glucose [Mass/Vol] 304 mg/dL High 74-99 [facility] Comment on above: Order Comment: Ezekiel ramirez Type: BLOOD SPECIMENOrdering Facility: [facility] Address: [address] [place] [address] Result Comment: The [place] Diabetes Association (ADA) provides guidance for cutoff values for fasting glucose and random glucose. The ADA defines fasting as no caloric intake for at least 8 hours. Fasting plasma glucose results between 100 to 125 mg/dL indicate increased risk for diabetes (prediabetes).Fasting plasma glucose results greater than or equal to 126 mg/dL meet the criteria for diagnosis of diabetes. In the absence of unequivocal hyperglycemia, results should be confirmed by repeat testing. In a patient with classic symptoms of hyperglycemia or hyperglycemic crisis, random plasma glucose results greater than or equal to 200 mg/dL meet the criteria for diagnosis of diabetes.Reference: Standards of Medical Care in Diabetes 2016, [place] Diabetes Association. Diabetes Care. 2016.39(Suppl 1). Performed By: #### 2 4321-2, 20196-6, 2777-1 ####[facility] LABIA [id number] [place] [id number] [place] Potassium [Moles/Vol] 4.3 mmol/L Normal 3.7-5.1 [facility] Comment on above: Order Comment: Speci men Type: BLOOD SPECIMENOrdering Facility: [facility] Address: [address] [place], [place] [address] Performed By: #### 2 4321-2, 82059-6, 2776-08 ####[facility] LABCLIA [id number] [address] [address] [place] Sodium [Moles/Vol] 124 mmol/L Low 136-144 [facility] Comment on above: Order Comment: Speci men Type: BLOOD SPECIMENOrdering Facility: [facility] Address: [address] [place], [place] [address] Performed By: #### 2 4321-2, 11901-6, 2776-08 ####[facility] LABCLIA [id number] [place] [address] [place] Urea nitrogen [Mass/Vol] 22 mg/dL Normal 9-24 [facility] Comment on above: Order Comment: Speci men Type: BLOOD SPECIMENOrdering Facility: [facility] Address: [address] [place] [address] Performed By: #### 2 4321-2, 85121-8, 2776-08 ####[facility] LABCLIA [id number] [place] [id number] [place] CASE MGT INIT ASSESon 2024 CASE MGT INIT ASSES Normal [facility] CBC W/Diff, Automatedon 11-02 Absolute Neut Normal 2.0-7.7 [facility] Comment on above: Result Comment: Canc elled via OM: Order cancelled - Patient discharged Performed By: #### L 500.2500, L100.0100 ####[facility] [address] [place], [place], [id number] HCT Normal 40-54 [facility] Comment on above: Result Comment: Canc elled via OM: Order cancelled - Patient discharged Performed By: #### L 500.2500, L100.0100 ####[facility] [address] [place], [address] HGB Normal 13.0-16.5 [facility] Comment on above: Result Comment: Canc elled via OM: Order cancelled - Patient discharged Performed By: #### L 500.2500, L100.0100 ####[facility] [address] [place], [address] MCH Normal 27.0-32.0 [facility] Comment on above: Result Comment: Canc elled via OM: Order cancelled - Patient discharged Performed By: #### L 500.2500, L100.0100 ####[facility] [address] [place], [address] MCHC Normal 32-36 [facility] Comment on above: Result Comment: Canc elled via OM: Order cancelled - Patient discharged Performed By: #### L 500.2500, L100.0100 ####[facility] [address] [place], [address] MCV Normal 80-94 [facility] Comment on above: Result Comment: Canc elled via OM: Order cancelled - Patient discharged Performed By: #### L 500.2500, L100.0100 ####[facility] [address] [place], [address] NEUT% Normal 47-70 [facility] Comment on above: Result Comment: Canc elled via OM: Order cancelled - Patient discharged Performed By: #### L 500.2500, L100.0100 ####[facility] [address] [place], [address] PLT Normal 150-450 [facility] Comment on above: Result Comment: Canc elled via OM: Order cancelled - Patient discharged Performed By: #### L 500.2500, L100.0100 ####[facility] [address] [place], [address] RBC Normal 4.6-6.2 [facility] Comment on above: Result Comment: Canc elled via OM: Order cancelled - Patient discharged Performed By: #### L 500.2500, L100.0100 ####[facility] [address] [place], [address] RDW CV Normal 11.6-14.6 [facility] Comment on above: Result Comment: Canc elled via OM: Order cancelled - Patient discharged Performed By: #### L 500.2500, L100.0100 ####[facility] [address] [place], [address] RDW SD Normal 35.1-43.9 [facility] Comment on above: Result Comment: Canc elled via OM: Order cancelled - Patient discharged Performed By: #### L 500.2500, L100.0100 ####[facility] [address] [place], [address] WBC Normal 4.4-11.0 [facility] Comment on above: Result Comment: Canc elled via OM: Order cancelled - Patient discharged Performed By: #### L 500.2500, L100.0100 ####[facility] [address] [place], [address] CBC panel Auto (Bld)on 11-12 Erythrocyte distribution width (RBC) [Ratio] 16.9 % High 11.5-15.0 [facility] Comment on above: Order Comment: Speci men Type: BLOOD SPECIMENOrdering Facility: [facility] Address: [address] [place] [address] Performed By: #### 5 8410-2 ####[facility] LABCLIA [id number] [address] [address] [place] Hematocrit (Bld) [Volume fraction] 21.7 % Low 39.0-51.0 [facility] Comment on above: Order Comment: Speci men Type: BLOOD SPECIMENOrdering Facility: [facility] Address: [address] [place] [address] Performed By: #### 5 8410-2 ####[facility] LABCLIA [id number] [place] [address] [place] Hemoglobin (Bld) [Mass/Vol] 7.5 g/dL Low 13.0-17.0 [facility] Comment on above: Order Comment: Speci men Type: BLOOD SPECIMENOrdering Facility: [facility] Address: [address] [place] [address] Performed By: #### 5 8410-2 ####[facility] LABCLIA [id number] [place] [address] [place] MCH (RBC) [Entitic mass] 31.5 pg Normal 26.0-34.0 [facility] Comment on above: Order Comment: Speci men Type: BLOOD SPECIMENOrdering Facility: [facility] Address: [address] [place] [address] Performed By: #### 5 8410-2 ####[facility] LABCLIA [id number] [place] [address] [place] MCHC (RBC) [Mass/Vol] 34.6 g/dL Normal 30.5-36.0 [facility] Comment on above: Order Comment: Speci men Type: BLOOD SPECIMENOrdering Facility: [facility] Address: [address] [place] [address] Performed By: #### 5 8410-2 ####[facility] LABCLIA [id number] [place] [address] [place] MCV (RBC) [Entitic vol] 91.2 fL Normal 80.0-100.0 [facility] Comment on above: Order Comment: Speci men Type: BLOOD SPECIMENOrdering Facility: [facility] Address: [address] [place] [address] Performed By: #### 5 8410-2 ####[facility] LABCLIA [id number] [address] [address] [place] Nucleated RBC (Bld) [#/Vol] 10*3/uL Normal <0.01 [facility] Comment on above: Order Comment: Speci men Type: BLOOD SPECIMENOrdering Facility: [facility] Address: [address] [place] [address] Performed By: #### 5 8410-2 ####[facility] LABIA [id number] [place] [address] [place] Platelet mean volume (Bld) [Entitic vol] 10.8 fL Normal 9.0-12.7 [facility] Comment on above: Order Comment: Speci men Type: BLOOD SPECIMENOrdering Facility: [facility] Address: [address] [place] [address] Performed By: #### 5 8410-2 ####[facility] [id number] [place] [address] [place] Platelets (Bld) [#/Vol] 31 10*3/uL Low 150-400 [facility] Comment on above: Order Comment: Speci men Type: BLOOD SPECIMENOrdering Facility: [facility] Address: [address] [place] [address] Result Comment: Resu lts checked and verified.No clot detected. Performed By: #### 5 8410-2 ####[facility] LABIA [id number] [place] [address] [place] RBC (Bld) [#/Vol] 2.38 10*6/uL Low 4.20-6.00 [facility] Comment on above: Order Comment: Speci men Type: BLOOD SPECIMENOrdering Facility: [facility] Address: [address] [place] [address] Performed By: #### 5 8410-2 ####[facility] LABIA [id number] [id number] [address] [place] WBC (Bld) [#/Vol] 6.35 10*3/uL Normal 3.70-11.00 [facility] Comment on above: Order Comment: Speci men Type: BLOOD SPECIMENOrdering Facility: [facility] Address: [address] [place] [address] Performed By: #### 5 8410-2 ####[facility] LABCLIA [id number] [place] [address] [place] Erythrocyte distribution width (RBC) [Ratio] 17.3 % High 11.5-15.0 [facility] Comment on above: Order Comment: Speci men Type: BLOOD SPECIMENOrdering Facility: [facility] Address: [address] [place] [address] Performed By: #### 5 8410-2 ####[facility] LABCLIA [id number] [address] [place] Hematocrit (Bld) [Volume fraction] 22.9 % Low 39.0-51.0 [facility] Comment on above: Order Comment: Speci men Type: BLOOD SPECIMENOrdering Facility: [facility] Address: [address] [place] [address] Performed By: #### 5 8410-2 ####[facility] LABCLIA [id number] [place] [address] [place] Hemoglobin (Bld) [Mass/Vol] 7.9 g/dL Low 13.0-17.0 [facility] Comment on above: Order Comment: Speci men Type: BLOOD SPECIMENOrdering Facility: [facility] Address: [address] [place] [address] Performed By: #### 5 8410-2 ####[facility] LABCLIA [id number] [place] [id number] [place] MCH (RBC) [Entitic mass] 31.5 pg Normal 26.0-34.0 [facility] Comment on above: Order Comment: Speci men Type: BLOOD SPECIMENOrdering Facility: [facility] Address: [address] [place] [address] Performed By: #### 5 8410-2 ####[facility] [id number] [place] [address] [place] MCHC (RBC) [Mass/Vol] 34.5 g/dL Normal 30.5-36.0 [facility] Comment on above: Order Comment: Speci men Type: BLOOD SPECIMENOrdering Facility: [facility] Address: [address] [place] [address] Performed By: #### 5 8410-2 ####[facility] [id number] [place] [address] [place] MCV (RBC) [Entitic vol] 91.2 fL Normal 80.0-100.0 C [facility] Comment on above: Order Comment: Speci men Type: BLOOD SPECIMENOrdering Facility: [facility] Address: [address] [place] [address] Performed By: #### 5 8410-2 ####[facility] [id number] [place] [address] [place] Nucleated RBC (Bld) [#/Vol] 10*3/uL Normal <0.01 [facility] Comment on above: Order Comment: Speci men Type: BLOOD SPECIMENOrdering Facility: [facility] Address: [address] [place] [address] Performed By: #### 5 8410-2 ####[facility] [id number] [place] [address] [place] Platelet mean volume (Bld) [Entitic vol] 11.6 fL Normal 9.0-12.7 [facility] Comment on above: Order Comment: Speci men Type: BLOOD SPECIMENOrdering Facility: [facility] Address: [address] [place] [address] Performed By: #### 5 8410-2 ####[facility] LABCLIA [id number] [place] [address] [place] Platelets (Bld) [#/Vol] 33 10*3/uL Low 150-400 [facility] Comment on above: Order Comment: Speci men Type: BLOOD SPECIMENOrdering Facility: [facility] Address: [address] [place] [address] Result Comment: Resu lts checked and verified.No clot detected. Performed By: #### 5 8410-2 ####[facility] LABIA [id number] [place] [address] [place] RBC (Bld) [#/Vol] 2.51 10*6/uL Low 4.20-6.00 [facility] Comment on above: Order Comment: Speci men Type: BLOOD SPECIMENOrdering Facility: [facility] Address: [address] [place] [address] Performed By: #### 5 8410-2 ####[facility] LABIA [id number] [place] [address] [place] WBC (Bld) [#/Vol] 7.27 10*3/uL Normal 3.70-11.00 [facility] Comment on above: Order Comment: Speci men Type: BLOOD SPECIMENOrdering Facility: [facility] Address: [address] [place] [address] Performed By: #### 5 8410-2 ####[facility] LABIA [id number] [place] [id number] [place] CITRATED PLATELET COUNTon CITRATED PLATELET COUNT (WAM) 33 k/uL Low 150-400 [facility] Comment on above: Order Comment: Speci men Type: BLOOD SPECIMENOrdering Facility: [facility] Address: [address] [place] [address] Result Comment: Plat elet count confirmed by manual review of peripheral blood smear. No clot detected. Performed By: #### C ITPLT ####[facility] LABCLIA [id number] [place] [address] [place] CNCNPATEDon 11-12-2024 CNCNPATED Normal [facility] CNPNon 11-12-2024 CNPN Normal [facility] CONFIRM BLOOD TYPEon 025 ABO O Normal [facility] Comment on above: Order Comment: Speci men Type: BLOOD SPECIMENOrdering Facility: [facility] Address: [address] [place] [address] Performed By: #### C ONABO ####[facility] B[facility] BANKCLIA [id number] [place] [address] [place] Rh Nom (Bld) Positive Normal [facility] Comment on above: Order Comment: Speci men Type: BLOOD SPECIMENOrdering Facility: [facility] Address: [address] [place] [address] Performed By: #### C ONABO ####[facility] B[facility]ANKCL[facility] [id number] [place] [address] [place] CONSULTon 11-12-2024 CONSULT Normal [facility] CONSULT Normal [facility] CONSULT Normal [facility] CONSULT Normal [facility] CONSULT Normal [facility] CONSULT Normal [facility] CT CHEST WO IVCONon 11-13-[address] CHEST WO IVCON Normal [facility] Comprehensive Metabolic Prof ilon 11-12-2024 ALB Normal 3.5-5.0 [facility] Comment on above: Result Comment: Canc elled via OM: Order cancelled - Patient discharged Performed By: #### L 500.4050 ####[facility] [address] [place], [address] ALK PHOS Normal 40-129 [facility] Comment on above: Result Comment: Canc elled via OM: Order cancelled - Patient discharged Performed By: #### L 500.4050 ####[facility] [address] [place], [address] ALT Normal <=46 [facility] Comment on above: Result Comment: Canc elled via OM: Order cancelled - Patient discharged Performed By: #### L 500.4050 ####[facility] [address] [place], [address] AST Normal <=37 [facility] Comment on above: Result Comment: Canc elled via OM: Order cancelled - Patient discharged Performed By: #### L 500.4050 ####[facility] [address] [place], [address] BUN Normal 4-19 [facility] Comment on above: Result Comment: Canc elled via OM: Order cancelled - Patient discharged Performed By: #### L 500.4050 ####[facility] [address] [place], [address] Result Comment: Canc elled via OM: MD Ordered Performed By: #### L 500.2500, L100.0100 ####[facility] [address] [place], [address] BUN/CRE Normal 10-20 [facility] Comment on above: Result Comment: Canc elled via OM: Order cancelled - Patient discharged Performed By: #### L 500.4050 ####[facility] [address] [place], [address] Result Comment: Canc elled via OM: MD Ordered Performed By: #### L 500.2500, L100.0100 ####[facility] [address] [place], [address] Calcium Normal 7.6-11.0 [facility] [facility] Comment on above: Result Comment: Canc elled via OM: Order cancelled - Patient discharged Performed By: #### L 500.4050 ####[facility] [address] [place], [address] Result Comment: Canc elled via OM: MD Ordered Performed By: #### L 500.2500, L100.0100 ####[facility] [address] [place], [address] CL Normal 98-108 [facility] Comment on above: Result Comment: Canc elled via OM: Order cancelled - Patient discharged Performed By: #### L 500.4050 ####[facility] [address] [place], [address] Result Comment: Canc elled via OM: MD Ordered Performed By: #### L 500.2500, L100.0100 ####[facility] [address] [place], [address] CO2 Normal 21.0-32.0 [facility] Comment on above: Result Comment: Canc elled via OM: Order cancelled - Patient discharged Performed By: #### L 500.4050 ####[facility] [address] [place], [address] Result Comment: Canc elled via OM: MD Ordered Performed By: #### L 500.2500, L100.0100 ####[facility] [address] [place], [address] CREAT,SERUM Normal 0.70-1.20 [facility] Comment on above: Result Comment: Canc elled via OM: Order cancelled - Patient discharged Performed By: #### L 500.4050 ####[facility] [address] [place], [address] Result Comment: Canc elled via OM: MD Ordered Performed By: #### L 500.2500, L100.0100 ####[facility] [address] [place], [address] eGFR Normal >60 [facility] Comment on above: Result Comment: Canc elled via OM: Order cancelled - Patient discharged Performed By: #### L 500.4050 ####[facility] [address] [place], [address] Result Comment: Canc elled via OM: MD Ordered Performed By: #### L 500.2500, L100.0100 ####[facility] [address] [place], [address] GAP Normal 5-15 [facility] Comment on above: Result Comment: Canc elled via OM: Order cancelled - Patient discharged Performed By: #### L 500.4050 ####[facility] [address] [place], [address] Result Comment: Canc elled via OM: MD Ordered Performed By: #### L 500.2500, L100.0100 ####[facility] [address] [place], [address] GLU Normal 70-99 [facility] Comment on above: Result Comment: Canc elled via OM: Order cancelled - Patient discharged Performed By: #### L 500.4050 ####[facility] [address] [place], [address] Result Comment: Canc elled via OM: MD Ordered Performed By: #### L 500.2500, L100.0100 ####[facility] [address] [place], [address] Potassium Normal 3.3-5.1 [facility] Comment on above: Result Comment: Canc elled via OM: Order cancelled - Patient discharged Performed By: #### L 500.4050 ####[facility] [address] [place], [address] Result Comment: Canc elled via OM: MD Ordered Performed By: #### L 500.2500, L100.0100 ####[facility] [address] [place], [address] T BILI Normal 0.00-1.30 [facility] Comment on above: Result Comment: Canc elled via OM: Order cancelled - Patient discharged Performed By: #### L 500.4050 ####[facility] [address] [place], [address] T PROT Normal 5.9-8.4 [facility] Comment on above: Result Comment: Canc elled via OM: Order cancelled - Patient discharged Performed By: #### L 500.4050 ####[facility] [address] [place], [address] Comprehensive Metabolic Profil Normal 133-145 [facility] Comment on above: Result Comment: Canc elled via OM: Order cancelled - Patient discharged Performed By: #### L 500.4050 ####[facility] [address] [place], [address] Result Comment: Canc elled via OM: MD Ordered Performed By: #### L 500.2500, L100.0100 ####[facility] [address] [place], [address] D dimer FEU PPP-mCncon 11-12 Fibrin D-dimer FEU (PPP) [Mass/Vol] 3850 ng/mL FEU High <500 [facility] Comment on above: Order Comment: Speci men Type: BLOOD SPECIMENOrdering Facility: [facility] Address: [address] [place] [address] Performed By: #### 4 8065-7 ####[facility] LABCLIA [id number] [place] [address] [place] ECHO WITH AGITATED SALINE CO NTRASTon 11-12-2024 ECHO WITH AGITATED SALINE CONTRAST Normal [facility] Fibrin D-dimer FEU (PPP) [Ma ss/Vol]on 11-12-2024 D DIMER AGE-RELATED CUTOFF 580 ng/mL FEU Normal [facility] Comment on above: Order Comment: Speci men Type: BLOOD SPECIMENOrdering Facility: [facility] Address: [address] [place] [address] Performed By: #### 4 8065-7 ####[facility] LABIA [id number] [address] [address] [place] Hepatic function 2000 panelo n 11-12-2024 Albumin [Mass/Vol] 3.0 g/dL Low 3.9-4.9 [facility] Comment on above: Order Comment: Speci men Type: BLOOD SPECIMENOrdering Facility: [facility] Address: [address] [place] [address] Performed By: #### 2 4321-2, 70857-9, 2777-1 ####[facility] LABIA [id number] [place] [address] [place] ALP [Catalytic activity/Vol] 252 U/L High 38-113 [facility] Comment on above: Order Comment: Speci men Type: BLOOD SPECIMENOrdering Facility: [facility] Address: [address] [place] [address] Performed By: #### 2 4321-2, 39951-2, 2777-1 ####[facility] LABIA [id number] [place] [address] [place] ALT [Catalytic activity/Vol] 24 U/L Normal 10-54 [facility] Comment on above: Order Comment: Speci men Type: BLOOD SPECIMENOrdering Facility: [facility] Address: [address] [place] [address] Performed By: #### 2 4321-2, 97221-4, 2777-1 ####[facility] LABIA [id number] [place] [id number] [place] AST [Catalytic activity/Vol] 41 U/L High 14-40 [facility] Comment on above: Order Comment: Speci men Type: BLOOD SPECIMENOrdering Facility: [facility] Address: [address] [place], [place] [address] Performed By: #### 2 4321-2, 85298-7, 2776- ####[facility] LABCLIA [id number] [address] [address] [place] Bilirubin [Mass/Vol] 1.8 mg/dL High 0.2-1.3 [facility] Comment on above: Order Comment: Speci men Type: BLOOD SPECIMENOrdering Facility: [facility] Address: [address] [place] [address] Performed By: #### 2 4321-2, 79139-7, 2776-08 ####[facility] LABIA [id number] [place] [address] [place] Bilirubin.conjugated [Mass/Vol] 0.9 mg/dL High <0.3 [facility] Comment on above: Order Comment: Speci men Type: BLOOD SPECIMENOrdering Facility: [facility] Address: [address] [place] [address] Result Comment: Resu lts may be falsely decreased due to interference from hemolysis. Suggest reorder as clinically indicated. Performed By: #### 2 4321-2, 80561-3, 2776-08 ####[facility] LABCLIA [id number] [place] [address] [place] Protein [Mass/Vol] 5.5 g/dL Low 6.3-8.0 [facility] Comment on above: Order Comment: Speci men Type: BLOOD SPECIMENOrdering Facility: [facility] Address: [address] [place] [address] Performed By: #### 2 4321-2, 97369-8, 2776-08 ####[facility] LABIA [id number] [place] [id number] [place] MEDICAL EMERon 11-12-2024 MEDICAL KRISTINA Normal [facility] NURSING PROGon 11-12-2024 NURSING PROG Normal [facility] NURSING PROG Normal [facility] NURSING PROG Normal [facility] NURSING PROG Normal [facility] NUTRITIONon 11-12-2024 NUTRITION Normal [facility] PTT, ANTICOAGULANT THERAPYon 11-12-2024 aPTT Coag (PPP) [Time] 62.6 s High 23.0-32.4 Cl [facility] Comment on above: Order Comment: Speci men Type: BLOOD SPECIMENOrdering Facility: [facility] Address: [address] [place] [address] Performed By: #### P TTAC ####[facility] LABIA [id number] [place] [address] [place] Phosphate SerPl-mCncon 11-12 Phosphate [Mass/Vol] 2.3 mg/dL Low 2.7-4.8 [facility] Comment on above: Order Comment: Speci men Type: BLOOD SPECIMENOrdering Facility: [facility] Address: [address] [place] [address] Performed By: #### 2 4321-2, 54759-8, 2777-1 ####[facility] [id number] [place] [address] [place] SOCIAL WORKon 11-12-2024 SOCIAL WORK Normal [facility] THERAPY NTon 11-12-2024 THERAPY NT Normal [facility] THERAPY NT Normal [facility] THROMBOGRAPH PANELon 025 Clot angle TEG (Bld) [Angle] 32.8 degrees Low 47.0-74.0 [facility] Comment on above: Order Comment: Speci men Type: BLOOD SPECIMENOrdering Facility: [facility] Address: [address] [place] [address] Performed By: #### T EGPNP ####[facility] LABIA [id number] [place] [id number] [place] Clot Lysis 30 Min post maximum clot amplitude TEG (Bld) [Length fraction] 0.0 % Normal 0.0-8.0 [facility] Comment on above: Order Comment: Speci men Type: BLOOD SPECIMENOrdering Facility: [facility] Address: [address] [place] [address] Performed By: #### T EGPNP ####[facility] LABIA [id number] [place] [address] [place] Clotting time TEG (Bld) 5.0 minutes Normal 4.0-10.0 [facility] Comment on above: Order Comment: Speci men Type: BLOOD SPECIMENOrdering Facility: [facility] Address: [address] [place] [address] Performed By: #### T EGPNP ####[facility] LABIA [id number] [place] [address] [place] Coagulation index TEG Qn (Bld) -8.4 Low -4.6-3.2 [facility] Comment on above: Order Comment: Speci men Type: BLOOD SPECIMENOrdering Facility: [facility] Address: [address] [place] [address] Result Comment: This test was developed, and its performance characteristics determined by the [facility] Department of Pathology and Laboratory Medicine. It has not been cleared or approved by the FDA. The [facility] Department of Pathology and Laboratory Medicine is regulated under CLIA as qualified to perform high-complexity testing. This test is used for clinical purposes. It should not be regarded as investigational or for research. Performed By: #### T EGPNP ####[facility] LABIA [id number] [place] [address] [place] Maximum clot firmness TEG (Bld) [Length] 28.5 mm Low 51.0-75.0 [facility] Comment on above: Order Comment: Speci men Type: BLOOD SPECIMENOrdering Facility: [facility] Address: [address] [place] [address] Performed By: #### T EGPNP ####[facility] LABCLIA [id number] [facility] [place] [address] [place] Thromboelastography after addtion of heparinase panel (Bld) Normal [facility] Comment on above: Order Comment: Speci men Type: BLOOD SPECIMENOrdering Facility: [facility] Address: [address] [place] [address] Result Comment: A th romboelastograph (TEG) study was performed using citrate-anticoagulated whole blood.The R value, a measure of coagulation function, is within the normal range. This indicates normal coagulation function. The angle, a measure of fibrinogen function, is markedly decreased. This is indicative of decreased fibrinogen concentration or function. The Maximal Amplitude (MA), a measure of platelet function, is decreased. A decreased MA can be seen with increased anti-platelet drug effect, thrombocytopenia, or platelet dysfunction. The Ly30, a measure of fibrinolysis, is normal. This is indicative of normal fibrinolytic function. The coagulation index (CI), a measure of hemostasis function, is decreased. The CI is a calculated parameter based on the other TEG results.Viscoelastic testing is not intended for the monitoring of anticoagulation or antiplatelet medications or the diagnosis and/or management of platelet disorders and/or coagulopathies but may be useful for guiding blood product utilization in emergency and urgent (OR) circumstances when routine coagulation and cell blood counts are not available in a timely manner. Performed By: #### T EGPNP ####[facility] LABIA [id number] [place] [address] [place] TOXICOLOGY SCREEN, ROUTINE U RINEon 11-12-2024 Amphetamines Confirm (U) [Mass/Vol] Negative Normal Negative [facility] Comment on above: Order Comment: Speci men Type: URINE SPECIMENOrdering Facility: [facility] Address: [address] [place] [address] Result Comment: Cuto ff threshold at 1000 ng/mL. Performed By: #### U TOX2 ####[facility] LABIA [id number] [place] [address] [place] BARBITURATES, URINE Negative Normal Negative [facility] Comment on above: Order Comment: Speci men Type: URINE SPECIMENOrdering Facility: [facility] Address: [address] [place] [address] Result Comment: Cuto ff threshold at 200 ng/mL. Performed By: #### U TOX2 ####[facility] LABCLIA [id number] [place] [address] [place] BENZODIAZEPINES, UR Negative Normal Negative [facility] Comment on above: Order Comment: Speci men Type: URINE SPECIMENOrdering Facility: [facility] Address: [address] [place] [address] Result Comment: Cuto ff threshold at 200 ng/mL. Performed By: #### U TOX2 ####[facility] LABCLIA [id number] [place] [address] [place] Cannabinoids Screen Ql (U) Negative Normal Negative [facility] Comment on above: Order Comment: Speci men Type: URINE SPECIMENOrdering Facility: [facility] Address: [address] [place] [address] Result Comment: Cuto ff threshold at 50 ng/mL. Performed By: #### U TOX2 ####[facility] LABCLIA [id number] [place] [address] [place] Cocaine Ql (U) Negative Normal Negative [facility] Comment on above: Order Comment: Speci men Type: URINE SPECIMENOrdering Facility: [facility] Address: [address] [place] [address] Result Comment: Cuto ff threshold at 300 ng/mL. Performed By: #### U TOX2 ####[facility] LABCLIA [id number] [place] [address] [place] Ethanol (U) [Mass/Vol] <11 Normal <11 [facility] Comment on above: Order Comment: Speci men Type: URINE SPECIMENOrdering Facility: [facility] Address: [address] [place] [address] Performed By: #### U TOX2 ####[facility] LABCLIA [id number] [place] [address] [place] Opiates Screen Ql (U) Negative Normal Negative [facility] Comment on above: Order Comment: Speci men Type: URINE SPECIMENOrdering Facility: [facility] Address: [address] [place] [address] Result Comment: Cuto ff threshold at 300 ng/mL. Performed By: #### U TOX2 ####[facility] LABCLIA [id number] [place] [address] [place] oxyCODONE cutoff Screen (U) [Mass/Vol] Positive Abnormal Negative [facility] Comment on above: Order Comment: Speci men Type: URINE SPECIMENOrdering Facility: [facility] Address: [address] [place] [address] Result Comment: Cuto ff threshold at 100 ng/mL. Performed By: #### U TOX2 ####[facility] LABCLIA [id number] [place] [address] [place] Phencyclidine Ql (U) Negative Normal Negative [facility] Comment on above: Order Comment: Speci men Type: URINE SPECIMENOrdering Facility: [facility] Address: [address] [place] [address] Result Comment: Cuto ff threshold at 25 ng/mL. Performed By: #### U TOX2 ####[facility] LABCLIA [id number] [place] [address] [place] TYPE + SCREENon 11-12-2024 ABO O Normal [facility] Comment on above: Order Comment: Speci men Type: BLOOD SPECIMENOrdering Facility: [facility] Address: [address] [place] [address] Performed By: #### T SCR ####[facility] BLOOD BANKCLIA [id number] [place] [address] [place] Rh Nom (Bld) Positive Normal [facility] Comment on above: Order Comment: Speci men Type: BLOOD SPECIMENOrdering Facility: [facility] Address: [address] [place] [address] Performed By: #### T SCR ####[facility] BLOOD BANKCLIA [id number] [place] [address] [place] TYPE AND SCREEN EXPIRATION 11/15/2024 23:59 Normal [facility] Comment on above: Order Comment: Speci men Type: BLOOD SPECIMENOrdering Facility: [facility] Address: [address] [place] [address] Performed By: #### T SCR ####[facility] BLOOD BANKCLIA [id number] [facility] [address] [place] Urinalysis complete panel (U )on 11-12-2024 BACTERIA UL 1553.2 uL High Negative [facility] Comment on above: Order Comment: Speci men Type: URINE SPECIMENOrdering Facility: [facility] Address: [address] [place] [address] Performed By: #### 6 30-4, 33300-9 ####[facility] LABIA [id number] [place] [address] [place] Bilirubin Ql (U) 1+ Abnormal Negative [facility] Comment on above: Order Comment: Speci men Type: URINE SPECIMENOrdering Facility: [facility] Address: [address] [place] [address] Result Comment: Sugg est correlation with clinical findings and serum bilirubin if clinically indicated. Performed By: #### 6 30-4, 19606-3 ####[facility] LABCLIA [id number] [place] [id number] [place] Clarity (Unsp spec) Cloudy Abnormal Clear [facility] Comment on above: Order Comment: Speci men Type: URINE SPECIMENOrdering Facility: [facility] Address: [address] [place] [address] Performed By: #### 6 30-4, 06370-6 ####[facility] LABCLIA [id number] [place] [id number] [place] Color (U) Gratis Abnormal Yellow [facility] Comment on above: Order Comment: Speci men Type: URINE SPECIMENOrdering Facility: [facility] Address: [address] [place] [address] Performed By: #### 6 30-4, 64603-4 ####[facility] LABCLIA [id number] [facility] [address] Epithelial cells LM.HPF (Urine sed) [#/Area] None Seen Normal [facility] Comment on above: Order Comment: Speci men Type: URINE SPECIMENOrdering Facility: [facility] Address: [address] [place] [address] Performed By: #### 6 30-4, 21606-8 ####[facility] LABCLIA [id number] [place] [id number] [facility] [place] Glucose Test strip (U) [Mass/Vol] Negative Normal Negative [facility] Comment on above: Order Comment: Speci men Type: URINE SPECIMENOrdering Facility: [facility] Address: [address] [place] [address] Performed By: #### 6 30-4, 55743-1 ####[facility] LABCLIA [id number] [address] [place] Hemoglobin Ql (U) 3+ Abnormal Negative [facility] Comment on above: Order Comment: Speci men Type: URINE SPECIMENOrdering Facility: [facility] Address: [address] [place] [address] Performed By: #### 6 30-4, 61154-6 ####[facility] LABCLIA [id number] [facility] [place] [id number] [place] Hyaline casts (Urine sed) [#/Area] 0 /[LPF] Normal 0 /LPF [facility] Comment on above: Order Comment: Speci men Type: URINE SPECIMENOrdering Facility: [facility] Address: [address] [place] [address] Performed By: #### 6 30-4, 87906-5 ####[facility] LABCLIA [id number] [facility] [place] [id number], [place] [address] [place] Ketones Ql (U) Negative Normal Negative [facility] Comment on above: Order Comment: Speci men Type: URINE SPECIMENOrdering Facility: [facility] Address: [address] [place] [address] Performed By: #### 6 30-4, 18501-9 ####[facility] LABCLIA [id number] [facility] [address] [place] [address] [place] Leukocyte esterase Test strip Ql (U) 2+ Abnormal Negative [facility] Comment on above: Order Comment: Speci men Type: URINE SPECIMENOrdering Facility: [facility] Address: [address] [place] [address] Performed By: #### 6 30-, 49579-8 ####[facility] LABCLIA [id number] [facility] [address] [place] [address] [place] Nitrite Ql (U) Negative Normal Negative [facility] Comment on above: Order Comment: Speci men Type: URINE SPECIMENOrdering Facility: [facility] Address: [address] [place] [address] Performed By: #### 6 30-4, 52336-1 ####[facility] LABCLIA [id number] [facility] [address] [place] [address] [place] pH (U) 6.0 [pH] Normal <8.5 [facility] Comment on above: Order Comment: Speci men Type: URINE SPECIMENOrdering Facility: [facility] Address: [address] [place] [address] Performed By: #### 6 30-4, 86526-3 ####[facility] LABCLIA [id number] [facility] [place] [id number], [place] [address] [place] Protein (U) [Mass/Vol] 3+ Abnormal Negative [facility] Comment on above: Order Comment: Speci men Type: URINE SPECIMENOrdering Facility: [facility] Address: [address] [place] [address] Performed By: #### 6 30-4, 68154-7 ####[facility] LABIA [id number] [place] [address] [place] RBC LM.HPF (Urine sed) [#/Area] /[HPF] Abnormal 0-2 /HPF [facility] Comment on above: Order Comment: Speci men Type: URINE SPECIMENOrdering Facility: [facility] Address: [address] [place] [address] Performed By: #### 6 30-4, 34489-8 ####[facility] LABIA [id number] [place] [address] [place] Specific gravity (U) [Rel density] 1.019 Normal 1.005-1.030 [facility] Comment on above: Order Comment: Speci men Type: URINE SPECIMENOrdering Facility: [facility] Address: [address] [place] [address] Performed By: #### 6 30-4, 06236-2 ####[facility] LABIA [id number] [place] [address] [place] Urobilinogen Ql (U) 0.2 EU/dL Normal 0.2-1.0 EU/dL [facility] Comment on above: Order Comment: Speci men Type: URINE SPECIMENOrdering Facility: [facility] Address: [address] [place] [address] Performed By: #### 6 30-4, 65354-6 ####[facility] LABIA [id number] [place] [address] [place] WBC LM.HPF (Urine sed) [#/Area] /[HPF] Abnormal 0-5 /HPF [facility] Comment on above: Order Comment: Speci men Type: URINE SPECIMENOrdering Facility: [facility] Address: [address] [place] [address] Performed By: #### 6 30-4, 51480-7 ####[facility] [id number] [place] [address] [place] ALLIED HEALTHon 11-11-2024 ALLIED HEALTH Normal [facility] ALLIED [facility] Normal [facility] [facility] ANTI PLT FACTOR 4 ABon 11-11 Heparin induced platelet IgG Marco Antonio (S) [Interp] Negative Normal Negative [facility] Comment on above: Order Comment: Speci james Type: BLOOD SPECIMENOrdering Facility: [facility] Address: [address] [place] [address] Result Comment: No a nti-platelet factor 4 IgG antibody is detected by ANDERS assay.Heparin-induced thrombocytopenia (HIT) is unlikely, but should be excluded based on clinical factors. Performed By: #### P LATF4 ####[facility] [id number] [address] Platelet factor 4 Qn (PPP) 0.184 OD Normal <0.400 [facility] Comment on above: Order Comment: Ezekiel ramirez Type: BLOOD SPECIMENOrdering Facility: [facility] Address: [address] [place] [address] Result Comment: Not calculated Performed By: #### P LATF4 ####[facility] [id number] [place] [address] [place] Albumin Fld-ncon Albumin (Body fld) [Mass/Vol] <0.2 Normal See Comment [facility] Comment on above: Order Comment: Ezekiel ramirez Type: FLUID SPECIMENOrdering Facility: [facility] Address: [address] [place] [address] Result Comment: Body Fluid Albumin may be used in classifying ascitic fluid into high-gradient or low-gradient fluids as determined by the serum-ascites albumin gradient, which is calculated as (serum albumin) - (ascites albumin).The serum and fluid specimens should be drawn with a minimal intervening time interval to appropriately analyze the gradient.Gradients greater than or equal to 1.1 g/dL are considered high, which reflects a high hydrostatic pressure, commonly caused by: cirrhosis or other processes generating portal hypertension.In samples where gradients are less than 1.1 g/dL, ascites generated from conditions without portal hypertension should be considered.Reference:1. CLSI. Analysis of Body Fluids in Clinical Chemistry Approved Guideline. CLSI document C49A. PAULETTE Diaz: Clinical Laboratory Standards [place]: 2007.2. Amy JACKSON. Serum to ascites albumin gradient. UpToDate. 2015. Accessed on November 15, 2015.This test was developed, and its performance characteristics determined by the [facility] Department of Pathology and Laboratory Medicine. It has not been cleared or approved by the FDA. The [facility] Department of Pathology and Laboratory Medicine is regulated under CLIA as qualified to perform high-complexity testing. This test is used for clinical purposes. It should not be regarded as investigational or for research. Performed By: #### 1 747-5, 1795-4, 88224-0, 2881-1 ####[facility] LABCLIA [id number] [place] [address] [place] Fluid Nom (Body fld) Abdomen Normal [facility] Comment on above: Order Comment: Speci men Type: FLUID SPECIMENOrdering Facility: [facility] Address: [address] [place] [address] Performed By: #### 1 747-5, 1795-4, 10115-3, 2881-1 ####[facility] LABIA [id number] [place] [address] [place] Amylase Fld-cCncon 5 Amylase (Body fld) [Catalytic activity/Vol] 14 U/L Normal See Comment [facility] Comment on above: Order Comment: Speci men Type: FLUID SPECIMENOrdering Facility: [facility] Address: [address] [place] [address] Result Comment: PLEU RAL FLUIDS:Amylase measurement in pleural fluid is considered a useful test for detecting amylase-rich pleural effusions, which may be caused by exudative conditions associated with pancreatitis, esophageal rupture, malignancy, pneumonia, and liver cirrhosis. A ratio of pleural fluid amylase to a concurrent serum amylase >1 is defined asan amylase-rich pleural effusion.PERITONEAL FLUIDS AND DRAINAGE FLUIDS:Pancreatic damage causes extravasation of amylase from the exocrine cells into the peritoneal space. In cases of pancreatitis, fluid amylase should be at least several-fold times higher in fluid of pancreatic origin compared to concurrent serum amylase values.PANCREATIC CYST FLUID:Pancreatic cyst fluid amylase may aid in characterizing tumors and should be interpreted along with other clinical and laboratory information.References:1. Florentino MOLINA, Makenzie Marte. Body fluid analysis: clinical utility and applicability of published studies to guide interpretation of todays laboratory testing in serous fluids. Crit Rev Clin Lab Sci, 2013;50(4-5):107-124.2. CLSI. Analysis of Body Fluids in Clinical Chemistry; Approved Guideline. CLSI document C49-A. PAULETTE Diaz: Clinical Laboratory Standards [place]; 2007.3. Kelby HDZH, John RC, Star DJ. Use of cyst fluid CEA, CA19-9, and amylase for evaluation of pancreatic lesions. Clinical Biochemistry. 2009;42:3062-5363.This test was developed, and its performance characteristics determined by the [facility] Department of Pathology and Laboratory Medicine. It has not been cleared or approved by the FDA. The [facility] Department of Pathology and Laboratory Medicine is regulated under CLIA as qualified to perform high-complexity testing. This test is used for clinical purposes. It should not be regarded as investigational or for research. Performed By: #### 1 747-5, 1795-4, 03380-5, 2881-1 ####[facility] LABCL[facility] [id number] [place] [address] [place] Antithrombin Ag actual/philly l IA (PPP) [Relative mass conc]on 11-11-2024 Antithrombin Ag IA Qn (PPP) 32 % Low 80-120 [facility] Comment on above: Order Comment: Speci men Type: BLOOD SPECIMENOrdering Facility: [facility] Address: [address] [place] [address] Performed By: #### L [id number], OA, 6303-2, 19868-7, 66562-0 ####[facility]CL[facility] [id number] [address] [place] [address] [place] BODY FLUID CELL COUNTon 04-1 Clarity (Unsp spec) Clear Normal Clear [facility] Comment on above: Order Comment: Speci men Type: FLUID SPECIMENOrdering Facility: [facility] Address: [address] [place] [address] Performed By: #### C CBF, [id number] ####[facility]CL[facility] [id number] [address], [facility] [place] Color (Body fld) Colorless Normal Yellow [facility] Comment on above: Order Comment: Speci men Type: FLUID SPECIMENOrdering Facility: [facility] Address: [address] [place] [address] Performed By: #### C CBF, [id number] ####[facility] LABCLIA [id number] [place] [id number] [place] RBC Manual cnt (Body fld) [#/Vol] 2000 /uL High <2000 [facility] Comment on above: Order Comment: Speci men Type: FLUID SPECIMENOrdering Facility: [facility] Address: [address] [place] [address] Performed By: #### C CBF, [id number] ####[facility] LABCL[facility] [id number] [place] [id number] [place] Specimen source Nom (Body fld) Abdomen Normal [facility] Comment on above: Order Comment: Speci men Type: FLUID SPECIMENOrdering Facility: [facility] Address: [address] [place] [address] Performed By: #### C CBF, [id number] ####[facility]CL[facility] [id number] [address] [place] [address] [place] WBC Manual cnt (Body fld) [#/Vol] 70 /uL Normal <1000 [facility] Comment on above: Order Comment: Speci men Type: FLUID SPECIMENOrdering Facility: [facility] Address: [address] [place], [place] [address] Performed By: #### C JOSE, [id number] ####[facility]CL[facility] [id number] [address] [place] [address] [place] Bacteria Bld Culton 11-12-19 25 Bacteria identified Cx Nom (Bld) CULTURE, BLOOD: No growth 5 days GRAM STAIN: This blood culture had less than the recommended 8 ml per bottle, which could decrease the sensitivity of the test. Normal [facility] Comment on above: Performed By: #### 6 00-7 ####[facility]CL[facility] [id number] [address] [place] [address] [place] Bacteria identified Cx Nom (Bld) CULTURE, BLOOD: No growth 5 days Normal [facility] Comment on above: Performed By: #### 6 00-7 ####[facility]CL[facility] [id number] [address] [place] [address] [place] Bacteria Fld Culton 11-12-19 25 Bacteria identified Cx Nom (Body fld) CULTURE, BODY FLD: No growth GRAM STAIN: No organisms seen Many Polymorphonuclear leukocytes Gram stain performed on cytospun specimen. Gram stain from primary specimen Normal [facility] Comment on above: Performed By: #### 6 35-, 611-4 ####[facility]CL[facility] [id number] [address] [place] [address] [place] Bacteria Spec Anaerobe Culto n 11-11-2024 Bacteria identified Anaer cx Nom (Unsp spec) Negative Normal [facility] Comment on above: Performed By: #### 6 35-3, 611-4 ####[facility]CL[facility] [id number] [address] [place] [address] [place] Basic Metabolic Profile (BMP )on 11-11-2024 BUN Normal 4-19 [facility] Comment on above: Result Comment: Canc elled via OM: MD Ordered Performed By: #### L 100.0100, L500.2500 ####[facility] [address] [place], [address] Result Comment: PT T RANSFERRED TO DIFFERENT HOSPITAL PER DCORPORAL,RN Performed By: #### L 500.4050 ####[facility] [address] [place], [address] BUN/CRE Normal 10-20 [facility] Comment on above: Result Comment: Canc elled via OM: MD Ordered Performed By: #### L 100.0100, L500.2500 ####[facility] [address] [place], [address] Result Comment: PT T RANSFERRED TO DIFFERENT HOSPITAL PER DCORPORAL,RN Performed By: #### L 500.4050 ####[facility] [address] [place], [address] Calcium Normal 7.6-11.0 [facility] Comment on above: Result Comment: Canc elled via OM: MD Ordered Performed By: #### L 100.0100, L500.2500 ####[facility] [address] [place], [address] Result Comment: PT T RANSFERRED TO DIFFERENT HOSPITAL PER DCORPORAL,RN Performed By: #### L 500.4050 ####[facility] [address] [place], [address] CL Normal 98-108 [facility] Comment on above: Result Comment: Canc elled via OM: MD Ordered Performed By: #### L 100.0100, L500.2500 ####[facility] [address] [place], [address] Result Comment: PT T RANSFERRED TO DIFFERENT HOSPITAL PER DCORPORAL,RN Performed By: #### L 500.4050 ####[facility] [address] [place], [address] CO2 Normal 21.0-32.0 [facility] Comment on above: Result Comment: Canc elled via OM: MD Ordered Performed By: #### L 100.0100, L500.2500 ####[facility] [address] [place], [address] Result Comment: PT T RANSFERRED TO DIFFERENT HOSPITAL PER NEORPORAL,RN Performed By: #### L 500.4050 ####[facility] [address] [place], [address] CREAT,SERUM Normal 0.70-1.20 [facility] Comment on above: Result Comment: Canc elled via OM: MD Ordered Performed By: #### L 100.0100, L500.2500 ####[facility] [address] [place], [address] Result Comment: PT T RANSFERRED TO DIFFERENT HOSPITAL PER [facility],RN Performed By: #### L 500.4050 ####[facility] [address] [place], [address] eGFR Normal >60 [facility] Comment on above: Result Comment: Canc elled via OM: MD Ordered Performed By: #### L 100.0100, L500.2500 ####[facility] [address] [place], [address] Result Comment: PT T RANSFERRED TO DIFFERENT HOSPITAL PER [facility],RN Performed By: #### L 500.4050 ####[facility] [address] [place], [address] GAP Normal 5-15 [facility] Comment on above: Result Comment: Canc elled via OM: MD Ordered Performed By: #### L 100.0100, L500.2500 ####[facility] [address] [place], [address] Result Comment: PT T RANSFERRED TO DIFFERENT HOSPITAL PER NEORPORAL,RN Performed By: #### L 500.4050 ####[facility] [address] [place], [address] GLU Normal 70-99 [facility] Comment on above: Result Comment: Canc elled via OM: MD Ordered Performed By: #### L 100.0100, L500.2500 ####[facility] [address] [place], [address] Result Comment: PT T RANSFERRED TO DIFFERENT HOSPITAL PER NEORPORAL,RN Performed By: #### L 500.4050 ####[facility] [address] [place], [address] Potassium Normal 3.3-5.1 [facility] Comment on above: Result Comment: Canc elled via OM: MD Ordered Performed By: #### L 100.0100, L500.2500 ####[facility] [address] [place], [address] Result Comment: PT T RANSFERRED TO DIFFERENT HOSPITAL PER NEORPORAL,RN Performed By: #### L 500.4050 ####[facility] [address] [place], [address] Basic Metabolic Profile (BMP) Normal 133-145 [facility] Comment on above: Result Comment: Canc elled via OM: MD Ordered Performed By: #### L 100.0100, L500.2500 ####[facility] [address] [place], [address] Result Comment: PT T RANSFERRED TO DIFFERENT HOSPITAL PER DCORPORAL,RN Performed By: #### L 500.4050 ####[facility] [address] [place], [address] Basic metabolic 2000 panelon 11-11-2024 Anion gap [Moles/Vol] 12 mmol/L Normal 8-15 [facility] Comment on above: Order Comment: Speci men Type: BLOOD SPECIMENOrdering Facility: [facility] Address: [address] [place] [address] Performed By: #### 2 276-4, 82940-3, 92827-4, 11918-9, 2777-1, 80551-8 ####[facility] LABCLIA [id number] [place] [address] [place] Calcium [Mass/Vol] 9.1 mg/dL Normal 8.5-10.2 [facility] Comment on above: Order Comment: Speci men Type: BLOOD SPECIMENOrdering Facility: [facility] Address: [address] [place] [address] Performed By: #### 2 276-4, 25919-3, 53478-5, 92550-4, 7-1, ####[facility] LABIA [id number] [place] [address] [place] Chloride [Moles/Vol] 97 mmol/L Low 98-107 [facility] Comment on above: Order Comment: Speci men Type: BLOOD SPECIMENOrdering Facility: [facility] Address: [address] [place] [address] Performed By: #### 2 276-4, 83387-1, 20604-4, 13765-3, 2776-1, 58074-0 ####[facility] LABIA [id number] [place] [id number] [place] CO2 [Moles/Vol] 14 mmol/L Low 22-30 [facility] Comment on above: Order Comment: Speci men Type: BLOOD SPECIMENOrdering Facility: [facility] Address: [address] [place] [address] Performed By: #### 2 276-4, 55622-3, 24026-6, 70970-2, 2777-1, 84086-4 ####[facility] LABIA [id number] [address] [address] [place] Creatinine [Mass/Vol] 1.35 mg/dL High 0.73-1.22 [facility] Comment on above: Order Comment: Speci james Type: BLOOD SPECIMENOrdering Facility: [facility] Address: [address] [place] [address] Performed By: #### 2 276-4, 76143-7, 04249-4, 49425-6, 2776-1, ####[facility] [id number] [address] [address] [place] Creatinine and Glomerular filtration rate.predicted panel (S/P/Bld) 61 mL/min/1.73m??? Normal >=60 [facility] Comment on above: Order Comment: Ezekiel ramirez Type: BLOOD SPECIMENOrdering Facility: [facility] Address: [address] [place] [address] Result Comment: Patric mated Glomerular Filtration Rate (eGFR) is calculated using the 2020 CKD-EPI creatinine equation. This equation utilizes serum creatinine, sex, and age as parameters. The creatinine assay has traceable calibration to isotope dilution-mass spectrometry. Refer to KDIGO guidelines for clinical interpretation. In patients with unstable renal function, e.g. those with acute kidney injury, the eGFR may not accurately reflect actual GFR. Performed By: #### 2 276-4, 96401-0, 60664-9, 12584-2, 2776-, ####[facility] LABIA [id number] [address] [address] [place] Glucose [Mass/Vol] 292 mg/dL High 74-99 [facility] Comment on above: Order Comment: Meggani men Type: BLOOD SPECIMENOrdering Facility: [facility] Address: [address] [place] [address] Result Comment: The [place] Diabetes Association (ADA) provides guidance for cutoff values for fasting glucose and random glucose. The ADA defines fasting as no caloric intake for at least 8 hours. Fasting plasma glucose results between 100 to 125 mg/dL indicate increased risk for diabetes (prediabetes).Fasting plasma glucose results greater than or equal to 126 mg/dL meet the criteria for diagnosis of diabetes. In the absence of unequivocal hyperglycemia, results should be confirmed by repeat testing. In a patient with classic symptoms of hyperglycemia or hyperglycemic crisis, random plasma glucose results greater than or equal to 200 mg/dL meet the criteria for diagnosis of diabetes.Reference: Standards of Medical Care in Diabetes 2016, [place] Diabetes Association. Diabetes Care. 2016.39(Suppl 1). Performed By: #### 2 276-4, 43711-5, 33384-1, 31824-1, 2777-1, 04579-4 ####[facility] LABIA [id number] [place] [id number] [place] Potassium [Moles/Vol] 3.6 mmol/L Low 3.7-5.1 [facility] Comment on above: Order Comment: Speci men Type: BLOOD SPECIMENOrdering Facility: [facility] Address: [address] [place] [address] Performed By: #### 2 276-4, 53423-7, 68035-0, 77264-7, 2776-1, ####[facility] [id number] [place] [id number] [place] Sodium [Moles/Vol] 123 mmol/L Low 136-144 [facility] Comment on above: Order Comment: Speci men Type: BLOOD SPECIMENOrdering Facility: [facility] Address: [address] [place] [address] Performed By: #### 2 276-4, 51121-0, 36872-5, 61565-2, 7-1, 47642-3 ####[facility] LABIA [id number] [place] [id number] [place] Urea nitrogen [Mass/Vol] 22 mg/dL Normal 9-24 [facility] Comment on above: Order Comment: Speci men Type: BLOOD SPECIMENOrdering Facility: [facility] Address: [address] [place] [address] Performed By: #### 2 276-4, 30883-5, 33516-9, 75210-3, 2777-1, 51745-3 ####[facility]CL[facility] [id number] [address] CARDIOLIPIN IGG ABSon 2024 Cardiolipin IgG IA Qn (S) <9.0 Normal <15.0 [facility] Comment on above: Order Comment: Speci men Type: BLOOD SPECIMENOrdering Facility: [facility] Address: [address] [place] [address] Result Comment: <15 GPL [id number] GPL Indeterminate>20 GPL PositiveThe following results were obtained with the Inova QUANTA Lite TEZ IgG III ANDERS. Cardiolipin IgG values obtained with the different manufacturers' assay methods may not be used interchangeably. The magnitude of the reported IgG levels cannot be correlated to an endpoint titer. Performed By: #### 5 076-5KATHI CARDIM ####[facility] LABIA [id number] [address] CARDIOLIPIN IGM ABSon 2024 Cardiolipin IgM IA Qn (S) <9.0 Normal <12.5 [facility] Comment on above: Order Comment: Speci men Type: BLOOD SPECIMENOrdering Facility: [facility] Address: [address] [place] [address] Result Comment: <12. 5 MPL Gupzldtr12.5-20 MPL Indeterminate>20 MPL PositiveThe following results were obtained with the Inova QUANTA Lite TEZ IgM III ANDERS. Cardiolipin IgM values obtained with the different manufacturers' assay methods may not be used interchangeably. The magnitude of the reported IgM levels cannot be correlated to an endpoint titer.??? Performed By: #### 5 076-5KATHI CARDIM ####[facility] LABCL[facility] [id number] [place] [id number] [place] CASE MANAGEMon 11-11-2024 CASE MANAGEM Normal [facility] CBC W Auto Differential pane l (Bld)on 11-11-2024 Basophils (Bld) [#/Vol] 0.04 10*3/uL Normal <0.11 [facility] Comment on above: Order Comment: Speci men Type: BLOOD SPECIMENOrdering Facility: [facility] Address: [address] [place] [address] Performed By: #### I PFR, 97269-6, 57057-7 ####[facility]CL[facility] [id number] [place] [address] [place] Basophils/100 WBC (Bld) 0.4 % Normal [facility] Comment on above: Order Comment: Speci men Type: BLOOD SPECIMENOrdering Facility: [facility] Address: [address] [place] [address] Performed By: #### I PFR, 37412-5, 87778-3 ####[facility]CL[facility] [id number] [place] [address] [place] Differential cell count method Nom (Bld) Auto Normal [facility] Comment on above: Order Comment: Speci men Type: BLOOD SPECIMENOrdering Facility: [facility] Address: [address] [place] [address] Performed By: #### I PFR, 61571-9, 66773-0 ####[facility]CL[facility] [id number] [place] [address] [place] Eosinophils (Bld) [#/Vol] 0.35 10*3/uL Normal <0.46 [facility] Comment on above: Order Comment: Speci men Type: BLOOD SPECIMENOrdering Facility: [facility] Address: [address] [place] [address] Performed By: #### I PFR, 58204-6, 23419-0 ####[facility]CL[facility] [id number] [place] [address] [place] Eosinophils/100 WBC (Bld) 3.4 % Normal [facility] Comment on above: Order Comment: Speci men Type: BLOOD SPECIMENOrdering Facility: [facility] Address: [address] [place] [address] Performed By: #### I PFR, 11146-2, 08735-7 ####[facility]CL[facility] [id number] [place] [address] [place] Erythrocyte distribution width (RBC) [Ratio] 17.4 % High 11.5-15.0 [facility] Comment on above: Order Comment: Speci men Type: BLOOD SPECIMENOrdering Facility: [facility] Address: [address] [place] [address] Performed By: #### I PFR, 79228-8, ####[facility] [id number] [address] [place] Hematocrit (Bld) [Volume fraction] 24.6 % Low 39.0-51.0 [facility] Comment on above: Order Comment: Speci men Type: BLOOD SPECIMENOrdering Facility: [facility] Address: [address] [place] [address] Performed By: #### I PFR, 44654-7, 88975-3 ####[facility]CL[facility] [id number] [place] [address] [place] Hemoglobin (Bld) [Mass/Vol] 8.4 g/dL Low 13.0-17.0 [facility] Comment on above: Order Comment: Speci men Type: BLOOD SPECIMENOrdering Facility: [facility] Address: [address] [place] [address] Performed By: #### I PFR, 13930-2, 48459-5 ####[facility]CL[facility] [id number] [place] [id number] [place] Immature granulocytes (Bld) [#/Vol] 0.08 10*3/uL Normal <0.10 [facility] Comment on above: Order Comment: Speci men Type: BLOOD SPECIMENOrdering Facility: [facility] Address: [address] [place] [address] Performed By: #### I PFR, 37690-1, ####[facility]CL[facility] [id number] [place] [address] [place] Immature granulocytes/100 WBC (Bld) 0.8 % Normal [facility] Comment on above: Order Comment: Speci men Type: BLOOD SPECIMENOrdering Facility: [facility] Address: [address] [place] [address] Performed By: #### I PFR, 86646-9, ####[facility]CL[facility] [id number] [place] [address] [place] Lymphocytes (Bld) [#/Vol] 0.99 10*3/uL Low 1.00-4.00 [facility] Comment on above: Order Comment: Speci men Type: BLOOD SPECIMENOrdering Facility: [facility] Address: [address] [place] [address] Performed By: #### I PFR, 67270-8, ####[facility] LABCLIA [id number] [place] [address] [place] Lymphocytes/100 WBC (Bld) 9.5 % Normal [facility] Comment on above: Order Comment: Speci men Type: BLOOD SPECIMENOrdering Facility: [facility] Address: [address] [place] [address] Performed By: #### I PFR, 36424-0, ####[facility] LABCLIA [id number] [place] [id number] [place] MCH (RBC) [Entitic mass] 31.9 pg Normal 26.0-34.0 [facility] Comment on above: Order Comment: Speci men Type: BLOOD SPECIMENOrdering Facility: [facility] Address: [address] [place], [place] [address] Performed By: #### I PFR, 15523-6, 05052-2 ####[facility] LABCLIA [id number] [place] [id number] [place] MCHC (RBC) [Mass/Vol] 34.1 g/dL Normal 30.5-36.0 [facility] Comment on above: Order Comment: Speci men Type: BLOOD SPECIMENOrdering Facility: [facility] Address: [address] [place] [address] Performed By: #### I PFR, 52894-2, 91455-8 ####[facility] LABCLIA [id number] [place] [address] [place] MCV (RBC) [Entitic vol] 93.5 fL Normal 80.0-100.0 C [facility] Comment on above: Order Comment: Speci men Type: BLOOD SPECIMENOrdering Facility: [facility] Address: [address] [place] [address] Performed By: #### I PFR, 92763-5, ####[facility] LABCLIA [id number] [place] [address] [place] Monocytes (Bld) [#/Vol] 0.97 10*3/uL High <0.87 [facility] Comment on above: Order Comment: Speci men Type: BLOOD SPECIMENOrdering Facility: [facility] Address: [address] [place], [place] [address] Performed By: #### I PFR, 31022-9, 67402-2 ####[facility] LABCLIA [id number] [place] [address] [place] Monocytes/100 WBC (Bld) 9.3 % Normal C [facility] Comment on above: Order Comment: Speci men Type: BLOOD SPECIMENOrdering Facility: [facility] Address: [address] [place] [address] Performed By: #### I PFR, 68379-0, 68323-0 ####[facility] LABIA [id number] [place] [address] [place] Neutrophils (Bld) [#/Vol] 8.00 10*3/uL High 1.45-7.50 [facility] Comment on above: Order Comment: Speci men Type: BLOOD SPECIMENOrdering Facility: [facility] Address: [address] [place] [address] Performed By: #### I PFR, 78867-1, 28282-8 ####[facility] LABIA [id number] [place] [address] [place] Neutrophils/100 WBC (Bld) 76.6 % Normal [facility] Comment on above: Order Comment: Speci men Type: BLOOD SPECIMENOrdering Facility: [facility] Address: [address] [place] [address] Performed By: #### I PFR, 85514-8, 32980-9 ####[facility] LABIA [id number] [place] [address] [place] Nucleated RBC (Bld) [#/Vol] 10*3/uL Normal <0.01 [facility] Comment on above: Order Comment: Speci men Type: BLOOD SPECIMENOrdering Facility: [facility] Address: [address] [place] [address] Performed By: #### I PFR, 74144-0, 48290-3 ####[facility] LABIA [id number] [place] [id number] [place] Nucleated RBC/100 WBC (Bld) [Ratio] 0.0 /100 WBC Normal [facility] Comment on above: Order Comment: Speci men Type: BLOOD SPECIMENOrdering Facility: [facility] Address: [address] [place] [address] Performed By: #### I PFR, 42012-5, 08451-4 ####[facility] LABCLIA [id number] [address] [address] [place] Platelet mean volume (Bld) [Entitic vol] 11.5 fL Normal 9.0-12.7 [facility] Comment on above: Order Comment: Speci men Type: BLOOD SPECIMENOrdering Facility: [facility] Address: [address] [place] [address] Performed By: #### I PFR, 13679-9, 60545-9 ####[facility] LABCLIA [id number] [address] [address] [place] Platelets (Bld) [#/Vol] 43 10*3/uL Low 150-400 C [facility] Comment on above: Order Comment: Speci men Type: BLOOD SPECIMENOrdering Facility: [facility] Address: [address] [place] [address] Performed By: #### I PFR, 54192-1, 78199-3 ####[facility] LABCLIA [id number] [place] [id number] [place] RBC (Bld) [#/Vol] 2.63 10*6/uL Low 4.20-6.00 [facility] Comment on above: Order Comment: Speci men Type: BLOOD SPECIMENOrdering Facility: [facility] Address: [address] [place], [place] [address] Performed By: #### I PFR, 01268-8, 03124-9 ####[facility] LABCLIA [id number] [address] [address] [place] WBC (Bld) [#/Vol] 10.43 10*3/uL Normal 3.70-11.00 [facility] Comment on above: Order Comment: Speci men Type: BLOOD SPECIMENOrdering Facility: [facility] Address: [address] [place] [address] Performed By: #### I PFR, 49063-1, 63377-2 ####[facility] LABCLIA [id number] [address], [facility]95 [place] Basophils (Bld) [#/Vol] 0.06 10*3/uL Normal <0.11 [facility] Comment on above: Order Comment: Speci men Type: BLOOD SPECIMENOrdering Facility: [facility] Address: [address] [place] [address] Performed By: #### 5 5454-3, 50546-0 ####[facility] LABCLIA [id number] [place] [id number] [place] Basophils/100 WBC (Bld) 0.4 % Normal [facility] Comment on above: Order Comment: Speci men Type: BLOOD SPECIMENOrdering Facility: [facility] Address: [address] [place] [address] Performed By: #### 5 5454-3, 95126-5 ####[facility] LABCLIA [id number] [address], [place] [address] [place] Differential cell count method Nom (Bld) Auto Normal [facility] Comment on above: Order Comment: Speci men Type: BLOOD SPECIMENOrdering Facility: [facility] Address: [address] [place] [address] Performed By: #### 5 5454-3, 35601-9 ####[facility] LABCLIA [id number] [place] [id number] [place] Eosinophils (Bld) [#/Vol] 0.40 10*3/uL Normal <0.46 [facility] Comment on above: Order Comment: Speci men Type: BLOOD SPECIMENOrdering Facility: [facility] Address: [address] [place] [address] Performed By: #### 5 5454-3, 83850-4 ####[facility] LABCLIA [id number] [place] [address] [place] Eosinophils/100 WBC (Bld) 2.5 % Normal [facility] Comment on above: Order Comment: Speci men Type: BLOOD SPECIMENOrdering Facility: [facility] Address: [address] [place] [address] Performed By: #### 5 5454-3, 82089-3 ####[facility] LABCLIA [id number] [place] [address] [place] Erythrocyte distribution width (RBC) [Ratio] 18.0 % High 11.5-15.0 [facility] Comment on above: Order Comment: Speci men Type: BLOOD SPECIMENOrdering Facility: [facility] Address: [address] [place] [address] Performed By: #### 5 5454-3, 30632-1 ####[facility] LABCLIA [id number] [place] [address] [place] Hematocrit (Bld) [Volume fraction] 30.4 % Low 39.0-51.0 [facility] Comment on above: Order Comment: Speci men Type: BLOOD SPECIMENOrdering Facility: [facility] Address: [address] [place] [address] Performed By: #### 5 5454-3, 16100-5 ####[facility] LABIA [id number] [place] [address] [place] Hemoglobin (Bld) [Mass/Vol] 10.2 g/dL Low 13.0-17.0 [facility] Comment on above: Order Comment: Speci men Type: BLOOD SPECIMENOrdering Facility: [facility] Address: [address] [place] [address] Performed By: #### 5 5454-3, 01158-5 ####[facility] LABCLIA [id number] [place] [address] [place] Immature granulocytes (Bld) [#/Vol] 0.18 10*3/uL High <0.10 [facility] Comment on above: Order Comment: Speci men Type: BLOOD SPECIMENOrdering Facility: [facility] Address: [address] [place] [address] Performed By: #### 5 5454-3, 38029-3 ####[facility] LABCLIA [id number] [place] [address] [place] Immature granulocytes/100 WBC (Bld) 1.1 % Normal [facility] Comment on above: Order Comment: Speci men Type: BLOOD SPECIMENOrdering Facility: [facility] Address: [address] [place] [address] Performed By: #### 5 5454-3, 69602-2 ####[facility] LABCLIA [id number] [place] [address] [place] Lymphocytes (Bld) [#/Vol] 1.19 10*3/uL Normal 1.00-4.00 [facility] Comment on above: Order Comment: Speci men Type: BLOOD SPECIMENOrdering Facility: [facility] Address: [address] [place] [address] Performed By: #### 5 5454-3, 03019-0 ####[facility] LABCLIA [id number] [place] [address] [place] Lymphocytes/100 WBC (Bld) 7.6 % Normal [facility] Comment on above: Order Comment: Speci men Type: BLOOD SPECIMENOrdering Facility: [facility] Address: [address] [place] [address] Performed By: #### 5 5454-3, 15342-7 ####[facility] LABCLIA [id number] [place] [address] [place] MCH (RBC) [Entitic mass] 31.3 pg Normal 26.0-34.0 [facility] Comment on above: Order Comment: Speci men Type: BLOOD SPECIMENOrdering Facility: [facility] Address: [address] [place] [address] Performed By: #### 5 5454-3, 47488-5 ####[facility] LABCLIA [id number] [address] [address] [place] MCHC (RBC) [Mass/Vol] 33.6 g/dL Normal 30.5-36.0 [facility] Comment on above: Order Comment: Speci men Type: BLOOD SPECIMENOrdering Facility: [facility] Address: [address] [place] [address] Performed By: #### 5 5454-3, 73102-7 ####[facility] LABCLIA [id number] [place] [address] [place] MCV (RBC) [Entitic vol] 93.3 fL Normal 80.0-100.0 C [facility] Comment on above: Order Comment: Speci men Type: BLOOD SPECIMENOrdering Facility: [facility] Address: [address] [place] [address] Performed By: #### 5 5454-3, 50230-8 ####[facility] LABIA [id number] [place] [address] [place] Monocytes (Bld) [#/Vol] 1.36 10*3/uL High <0.87 [facility] Comment on above: Order Comment: Speci men Type: BLOOD SPECIMENOrdering Facility: [facility] Address: [address] [place] [address] Performed By: #### 5 5454-3, 60567-4 ####[facility] LABCLIA [id number] [place] [id number] [place] Monocytes/100 WBC (Bld) 8.6 % Normal [facility] Comment on above: Order Comment: Speci men Type: BLOOD SPECIMENOrdering Facility: [facility] Address: [address] [place] [address] Performed By: #### 5 5454-3, 03003-4 ####[facility] LABCLIA [id number] [place] [address] [place] Neutrophils (Bld) [#/Vol] 12.55 10*3/uL High 1.45-7.50 [facility] Comment on above: Order Comment: Speci men Type: BLOOD SPECIMENOrdering Facility: [facility] Address: [address] [place] [address] Performed By: #### 5 5454-3, 52139-1 ####[facility] LABIA [id number] [place] [address] [place] Neutrophils/100 WBC (Bld) 79.8 % Normal [facility] Comment on above: Order Comment: Speci men Type: BLOOD SPECIMENOrdering Facility: [facility] Address: [address] [place] [address] Performed By: #### 5 5454-3, 12604-2 ####[facility] [id number] [place] [address] [place] Nucleated RBC (Bld) [#/Vol] 10*3/uL Normal <0.01 [facility] Comment on above: Order Comment: Speci men Type: BLOOD SPECIMENOrdering Facility: [facility] Address: [address] [place] [address] Performed By: #### 5 5454-3, 40596-8 ####[facility] LABIA [id number] [place] [address] [place] Nucleated RBC/100 WBC (Bld) [Ratio] 0.0 /100 WBC Normal [facility] Comment on above: Order Comment: Speci men Type: BLOOD SPECIMENOrdering Facility: [facility] Address: [address] [place] [address] Performed By: #### 5 5454-3, 83439-8 ####[facility] LABIA [id number] [place] [address] [place] Platelet mean volume (Bld) [Entitic vol] 12.1 fL Normal 9.0-12.7 [facility] Comment on above: Order Comment: Speci men Type: BLOOD SPECIMENOrdering Facility: [facility] Address: [address] [place] [address] Performed By: #### 5 5454-3, 33600-6 ####[facility] LABCLIA [id number] [place] [address] [place] Platelets (Bld) [#/Vol] 52 10*3/uL Low 150-400 C [facility] Comment on above: Order Comment: Speci men Type: BLOOD SPECIMENOrdering Facility: [facility] Address: [address] [place] [address] Result Comment: Resu lts checked and verified.No clot detected. Performed By: #### 5 5454-3, 14769-0 ####[facility] LABCLIA [id number] [place] [address] [place] RBC (Bld) [#/Vol] 3.26 10*6/uL Low 4.20-6.00 [facility] Comment on above: Order Comment: Speci men Type: BLOOD SPECIMENOrdering Facility: [facility] Address: [address] [place] [address] Performed By: #### 5 5454-3, 30235-0 ####[facility] LABCLIA [id number] [place] [address] [place] WBC (Bld) [#/Vol] 15.74 10*3/uL High 3.70-11.00 [facility] Comment on above: Order Comment: Speci men Type: BLOOD SPECIMENOrdering Facility: [facility] Address: [address] [place] [address] Performed By: #### 5 5454-3, 64823-5 ####[facility] LABCLIA [id number] [place] [id number] [place] CBC W/Diff, Automatedon 04-1 0-2025 Absolute Neut Normal 2.0-7.7 [facility] Comment on above: Result Comment: PT T RANSFERRED TO DIFFERENT HOSPITAL PER [facility],RN Performed By: #### L 100.0100, L500.2500 ####[facility] [address] [place], [address] HCT Normal 40-54 [facility] Comment on above: Result Comment: PT T [facility] Performed By: #### L 100.0100, L500.2500 ####[facility] [address] [place], [address] HGB Normal 13.0-16.5 [facility] Comment on above: Result Comment: PT T RANSFERRED TO DIFFERENT HOSPITAL PER [facility],RN Performed By: #### L 100.0100, L500.2500 ####[facility] [address] [place], [address] MCH Normal 27.0-32.0 [facility] Comment on above: Result Comment: PT T RANSFERRED TO DIFFERENT HOSPITAL PER [facility],RN Performed By: #### L 100.0100, L500.2500 ####[facility] [address] [place], [address] MCHC Normal 32-36 [facility] Comment on above: Result Comment: PT T [facility] Performed By: #### L 100.0100, L500.2500 ####[facility] [address] [place], [address] MCV Normal 80-94 [facility] Comment on above: Result Comment: PT T RANSFERRED TO DIFFERENT HOSP[facility] PER [facility],RN Performed By: #### L 100.0100, L500.2500 ####[facility] [address] [place], [address] NEUT% Normal 47-70 [facility] Comment on above: Result Comment: PT T RANSFERRED TO DIFFERENT HOSPITAL PER [facility],RN Performed By: #### L 100.0100, L500.2500 ####[facility] [address] [place], [address] PLT Normal 150-450 [facility] Comment on above: Result Comment: PT T RANSFERRED TO DIFFERENT HOSPITAL PER [facility],RN Performed By: #### L 100.0100, L500.2500 ####[facility] [address] [place], [address] RBC Normal 4.6-6.2 [facility] Comment on above: Result Comment: PT T RANSFERRED TO DIFFERENT HOSPITAL PER [facility],RN Performed By: #### L 100.0100, L500.2500 ####[facility] [address] [place], [address] RDW CV Normal 11.6-14.6 [facility] Comment on above: Result Comment: PT T RANSFERRED TO DIFFERENT HOSPITAL PER [facility],RN Performed By: #### L 100.0100, L500.2500 ####[facility] [address] [place], [address] RDW SD Normal 35.1-43.9 [facility] Comment on above: Result Comment: PT T RANSFERRED TO DIFFERENT HOSPITAL PER [facility],RN Performed By: #### L 100.0100, L500.2500 ####[facility] [address] [place], [address] WBC Normal 4.4-11.0 [facility] Comment on above: Result Comment: PT T RANSFERRED TO DIFFERENT HOSPITAL PER [facility],RN Performed By: #### L 100.0100, L500.2500 ####[facility] [address] [place], [address] [facility] Carcinoembryonic Ag [Mass/Vol] 13.0 ng/mL High <=2.9 [facility] Comment on above: Order Comment: Speci men Type: BLOOD SPECIMENOrdering Facility: [facility] Address: [address] [place] [address] Result Comment: Carc inoembryonic antigen test is used as an aid in monitoring response to treatment or recurrence in patients with established colorectal, breast, lung, prostatic, pancreatic, and ovarian carcinomas. Clinical correlation is required.The Carcinoembryonic antigen test was performed using the Aqu[employer] Unicel DXI paramagnetic particle chemiluminescent immunoassay method. Results obtained with different assay methods or kits cannot be used interchangeably. Performed By: #### 2 039-6, 02710-8, 2532-0 ####[facility] LABIA [id number] [place] [address] [place] COAG CORE PANEL BLColby 2024 aPTT Coag (PPP) [Time] 41.3 s High 23.0-32.4 [facility] Comment on above: Order Comment: Speci men Type: BLOOD SPECIMENOrdering Facility: [facility] Address: [address] [place] [address] Performed By: #### C ORPNL ####[facility] [id number] [place] [address] [place] Fibrinogen Coag (PPP) [Mass/Vol] 88 mg/dL Low 200-400 [facility] Comment on above: Order Comment: Speci men Type: BLOOD SPECIMENOrdering Facility: [facility] Address: [address] [place] [address] Result Comment: Samp le checked for clot.Result rechecked. Performed By: #### C ORPNL ####[facility] LABIA [id number] [address] [place] INR Coag (PPP) [Relative time] 2.1 {INR} High 0.9-1.3 [facility] Comment on above: Order Comment: Speci men Type: BLOOD SPECIMENOrdering Facility: [facility] Address: [address] [place] [address] Result Comment: Sarah min K Antagonist (VKA) Therapeutic Range: INR 2 to 3 (Target INR of 2.5)Note: For patients treated with VKA drugs, such as warfarin, the [employer] 2012 Guideline recommends a therapeutic INR range of 2 to 3 (target INR of 2.5). This recommendation includes high-risk patients with antiphospholipid syndrome with previous arterial or venous thromboembolism, current-generation mechanical or bioprosthetic aortic heart valve replacement.Note: Patients with mechanical aortic valve replacement and additional risk factors for thromboembolic events (atrial fibrillation, previous thromboembolism, LV dysfunction, hypercoagulable conditions) or an older generation mechanical AVR (i.e., ball in-Cage) or any mechanical MVR should have a INR therapeutic range of 2.5 to 3.5 (target INR of 3).Tammi GH, et al. Chest 2012, 141:7S-47SNishimura RA, et al. [facility] 2017, 70: 252-289 Performed By: #### C ORPNL ####[facility] [id number] [place] [address] [place] PT Coag (PPP) [Time] 21.8 s High 9.7-13.0 [facility] Comment on above: Order Comment: Ezekiel ramirez Type: BLOOD SPECIMENOrdering Facility: [facility] Address: [address] [place] [address] Performed By: #### C ORPNL ####[facility] [id number] [place] [id number] [place] CONSULTon 11-11-2024 CONSULT Normal [facility] CONSULT Normal [facility] CRP SerPl-mCncon 11-11-2024 CRP [Mass/Vol] 0.5 mg/dL Normal <0.9 [facility] Comment on above: Order Comment: Ezekiel ramirez Type: BLOOD SPECIMENOrdering Facility: [facility] Address: [address] [place] [address] Performed By: #### D ASHLEY, 1986-12 ####[facility] LABCLIA [id number] [place] [address] [place] CYTOLOGY NON-GYNon 5 AP DISCLAIMER Normal [facility] Comment on above: Order Comment: Speci men Type: FLUID SPECIMENOrdering Facility: [facility] Address: [address] [place] [address] Result Comment: Shellie pugh Developed Test (LDT) Disclaimer:Performance characteristics of immunohistochemical, immunofluorescent, and chromogenic in-situ hybridization tests have been determined by the performing laboratory within [facility]'s [facility] Pathology and Laboratory Medicine Department ([facility], [facility], [facility], [facility], [facility], [facility], or [facility]) in a manner consistent with CLIA requirements. One or more of these tests may not have been cleared or approved by the FDA. [facility] is regulated under CLIA as qualified to perform high-complexity testing. These tests are used for clinical purposes. These should not be regarded as investigational or for research. Positive and negative controls stain appropriately. Performed By: #### C YTONON ####[facility] LABCLIA [id number] [place] [address] [place] CASE REPORT Normal [facility] Comment on above: Order Comment: Speci men Type: FLUID SPECIMENOrdering Facility: [facility] Address: [address] [place] [address] Result Comment: [facility] Cytology Report Case: [id number] Provider: Yaritza Juarez, Collected: 11/11/2024 05:14 PM DIAMOND MERCHANT.CNPOrdering Location: [place] [address] Received: 11/11/2024 08:30 PMPathologist: Sameer Fournier MDSpecimen: Abdomen Performed By: #### C YTONON ####[facility] LABCLIA [id number] [place] [id number] [place] CLINICAL HISTORY paracentesis fluid Normal [facility] Comment on above: Order Comment: Speci men Type: FLUID SPECIMENOrdering Facility: [facility] Address: [address] [place] [address] Performed By: #### C YTONON ####[facility] LABCLIA [id number] [address] [place] FINAL DIAGNOSIS Normal [facility] Comment on above: Order Comment: Speci men Type: FLUID SPECIMENOrdering Facility: [facility] Address: [address] [place] [address] Result Comment: A - Abdomen, Fluid Negative for malignant cells.The following cell blocks were associated with this case:A1\X09\Cell Block, Alcohol Fixed\X09\ at 1034 EDT Performed By: #### C YTONON ####[facility] LABCLIA [id number] [place] [address] [place] FINAL PERFORMING LAB Normal [facility] Comment on above: Order Comment: Speci men Type: FLUID SPECIMENOrdering Facility: [facility] Address: [address] [place] [address] Result Comment: Tech nical component, swimming pool installer screening performed at: [facility], [address] [place] [address] CLIA: [id number] interpretation performed at: [facility], [address] [place] [address] CLIA# [id number] Director: Titi Voss MD Performed By: #### C YTONON ####[facility] LABCLIA [id number] [place] [address] [place] GROSS DESCRIPTION A. Abdomen Normal [facility] Comment on above: Order Comment: Speci men Type: FLUID SPECIMENOrdering Facility: [facility] Address: [address] [place] [address] Result Comment: 1450 cc opaque willow fluid . ThinPrep and Cell Block prepared. Performed By: #### C YTONON ####[facility] LABIA [id number] [address] [place] Cancer Ag19-9 SerPl-aCncon 0 11-11-2024 Cancer Ag 19-9 Qn <2.0 Normal <36.0 [facility] Comment on above: Order Comment: Speci men Type: BLOOD SPECIMENOrdering Facility: [facility] Address: [address] [place] [address] Result Comment: [facility] er antigen 19-9 test is used as an aid in monitoring response to treatment or recurrence in patients with established pancreatic, hepatobiliary, or gastrointestinal malignancies. Clinical correlation is required.The CA 19-9 Antigen test was performed using the Scoopshotel DXI paramagnetic particle chemiluminescent immunoassay method. Results obtained with different assay methods or kits cannot be used interchangeably. Performed By: #### 2 039-6, 66960-8, 2532-0 ####[facility] LABIA [id number] [address] Cardiolipin IgA Ser IA-aCnco n 11-11-2024 Cardiolipin IgA IA Qn (S) 9.7 [APL'U] Normal <12.0 [facility] Comment on above: Order Comment: Meggani james Type: BLOOD SPECIMENOrdering Facility: [facility] Address: [address] [place] [address] Result Comment: <12 APL [id number] APL Indeterminate>20 APL PositiveThe following results were obtained with the Corideava QUANTA Lite TEZ IgA III ANDERS. Cardiolipin IgA values obtained with the different manufacturers' assay methods may not be used interchangeably. The magnitude of the reported IgA levels cannot be correlated to an endpoint titer. Performed By: #### 5 076-5KATHI CARDIM ####[facility] LABIA [id number] [place] [id number] [place] Comprehensive Metabolic Prof ilon 11-11-2024 ALB Normal 3.5-5.0 [facility] Comment on above: Result Comment: PT T RANSFERRED [place] DIFFER[place] [place] Performed By: #### L 500.4050 ####[facility] [address] [place], [address] ALK PHOS Normal 40-129 [facility] Comment on above: Result Comment: PT T RANSFERRED TO DIFFERENT HOSPITAL PER [place],RN Performed By: #### L 500.4050 ####[facility] [address] [place], [address] ALT Normal <=46 [facility] Comment on above: Result Comment: PT T [facility] Performed By: #### L 500.4050 ####[facility] [address] [place], [address] AST Normal <=37 [facility] Comment on above: Result Comment: PT T RANSFERRED TO DIFFERENT HOSPITAL PER [place],RN Performed By: #### L 500.4050 ####[facility] [address] [place], [address] T BILI Normal 0.00-1.30 [facility] Comment on above: Result Comment: PT T RANSFERRED TO DIFFERENT HOSPITAL PER [place],RN Performed By: #### L 500.4050 ####[facility] [address] [place], [address] T PROT Normal 5.9-8.4 [facility] Comment on above: Result Comment: PT T RANSFERRED TO DIFFERENT HOSPITAL PER [place],RN Performed By: #### L 500.4050 ####[facility] [address] [place], [address] DIRECT BILIRUBIN BLOODon Bilirubin.conjugated [Mass/Vol] 1.1 mg/dL High <0.3 [facility] Comment on above: Order Comment: Speci men Type: BLOOD SPECIMENOrdering Facility: [facility] Address: [address] [place] [address] Performed By: #### D ASHLEY, 1986-12 ####[facility] LABIA [id number] [place] [address] [place] ECG COMPLETEon 11-11-2024 ECG COMPLETE Normal [facility] [id number] 11-11-2024 ECG01 Normal [facility] Ferritin SerPl-ncon 2024 Ferritin [Mass/Vol] 82.4 ng/mL Normal 30.3-565.7 [facility] Comment on above: Order Comment: Speci men Type: BLOOD SPECIMENOrdering Facility: [facility] Address: [address] [place] [address] Performed By: #### 2 276-4, 58444-1, 49175-6, 57882-1, 2777-1, 28581-4 ####[facility] [id number] [place] [address] [place] Fibrinogen PPP-ncon 2024 Fibrinogen Coag (PPP) [Mass/Vol] 90 mg/dL Low 200-400 [facility] Comment on above: Order Comment: Speci men Type: BLOOD SPECIMENOrdering Facility: [facility] Address: [address] [place] [address] Result Comment: Samp le checked for clot.Result rechecked. Performed By: #### 3 255-7, 28053-9 ####[facility] LABIA [id number] [place] [address] [place] HISTORY PHYSICALon HISTORY PHYSICAL Normal [facility] HYPERCOAG PANELon 11-11-2024 Activated protein C resistance Coag (PPP) [Time ratio] 2.10 Ratio Normal >1.96 [facility] Comment on above: Order Comment: Speci men Type: BLOOD SPECIMENOrdering Facility: [facility] Address: [address] [place] [address] Performed By: #### L [id number], HCOAG, 6303-2, 75282-4, 67100-0 ####[facility] LABCLIA [id number] [place] [address] [place] Antithrombin actual/normal Chromogenic method (PPP) [Rel catalytic activity/Vol] 30 % Low 84-138 [facility] Comment on above: Order Comment: Speci men Type: BLOOD SPECIMENOrdering Facility: [facility] Address: [address] [place] [address] Performed By: #### L [id number], HCOAG, 6303-2, 14345-0, 39699-1 ####[facility] LABIA [id number] [place] [address] [place] aPTT Coag (Bld) [Time] 47.9 s High 24.0-35.1 [facility] Comment on above: Order Comment: Speci men Type: BLOOD SPECIMENOrdering Facility: [facility] Address: [address] [place] [address] Performed By: #### L [id number], HCOAG, 6303-2, 90084-0, 30473-1 ####[facility] LABIA [id number] [address] [place] aPTT W excess hexagonal phase phospholipid Coag (PPP) [Time] 36.5 seconds Normal 34.0-51.8 [facility] Comment on above: Order Comment: Speci men Type: BLOOD SPECIMENOrdering Facility: [facility] Address: [address] [place] [address] Performed By: #### L [id number], HCOAG, 6303-2, 62171-4, 88388-5 ####[facility] LABCLIA [id number] [place] [address] [place] aPTT-LA w 1:1 PNP Coag (PPP) [Time] 32.5 seconds Normal <33.2 [facility] Comment on above: Order Comment: Speci men Type: BLOOD SPECIMENOrdering Facility: [facility] Address: [address] [place] [address] Result Comment: This test was developed, and its performance characteristics determined by the [facility] Department of Pathology and Laboratory Medicine. It has not been cleared or approved by the FDA. The [facility] Department of Pathology and Laboratory Medicine is regulated under CLIA as qualified to perform high-complexity testing. This test is used for clinical purposes. It should not be regarded as investigational or for research. Performed By: #### L [id number], HCOAG, 6303-2, 80875-9, 14890-5 ####[facility] LABCLIA [id number] [place] [address] [place] Coagulation factor VIII activity actual/normal Coag (PPP) [Relative time] 332 % High 50-173 [facility] Comment on above: Order Comment: Speci men Type: BLOOD SPECIMENOrdering Facility: [facility] Address: [address] [place] [address] Performed By: #### L [id number], HCOAG, 6303-2, 70468-4, 60274-4 ####[facility] LABIA [id number] [place] [address] [place] Coagulation factor X activated act Coag Qn (PPP) <0.10 Normal <0.10 [facility] Comment on above: Order Comment: Speci men Type: BLOOD SPECIMENOrdering Facility: [facility] Address: [address] [place] [address] Result Comment: This test was developed, and its performance characteristics determined by the [facility] Department of Pathology and Laboratory Medicine. It has not been cleared or approved by the FDA. The [facility] Department of Pathology and Laboratory Medicine is regulated under CLIA as qualified to perform high-complexity testing. This test is used for clinical purposes. It should not be regarded as investigational or for research. Performed By: #### L [id number], HCOAG, 6303-2, 01390-0, 77026-5 ####[facility] LABCLIA [id number] [place] [address] [place] Delta dRVVT Coag (PPP) [Time diff] 2.2 delta seconds Normal <7.1 [facility] Comment on above: Order Comment: Speci men Type: BLOOD SPECIMENOrdering Facility: [facility] Address: [address] [place] [address] Performed By: #### L [id number], HCOAG, 6303-2, 43594-5, 64552-6 ####[facility] LABCLIA [id number] [place] [address] [place] dRVVT W excess hexagonal phase phospholipid actual/normal Coag (PPP) [Relative time] 34.3 seconds Normal 34.2-47.9 [facility] Comment on above: Order Comment: Speci men Type: BLOOD SPECIMENOrdering Facility: [facility] Address: [address] [place] [address] Performed By: #### L [id number], HCOAG, 6303-2, 98322-9, 01558-9 ####[facility] LABCLIA [id number] [place] [address] [place] Protein C actual/normal Coag (PPP) [Relative time] 24 % Low 76-147 [facility] Comment on above: Order Comment: Speci men Type: BLOOD SPECIMENOrdering Facility: [facility] Address: [address] [place] [address] Performed By: #### L [id number], HCOAG, 6303-2, 54132-3, 98623-6 ####[facility] LABCLIA [id number] [place] [address] [place] Protein S actual/normal Coag (PPP) [Relative time] 28 % Low 59-152 [facility] Comment on above: Order Comment: Speci men Type: BLOOD SPECIMENOrdering Facility: [facility] Address: [address] [place] [address] Performed By: #### L [id number], HCOAG, 6303-2, 51444-9, 28604-2 ####[facility] LABIA [id number] [place] [address] [place] Protein S Free Ag actual/normal IA (PPP) [Relative mass conc] 45 % Low 55-148 [facility] Comment on above: Order Comment: Speci men Type: BLOOD SPECIMENOrdering Facility: [facility] Address: [address] [place] [address] Performed By: #### L [id number], HCOAG, 6303-2, 83884-9, 63784-0 ####[facility] [id number] [place] [address] [place] Thrombin time Coag (PPP) [Time] 20.0 seconds High <18.6 [facility] Comment on above: Order Comment: Speci men Type: BLOOD SPECIMENOrdering Facility: [facility] Address: [address] [place] [address] Performed By: #### L [id number], HCOAG, 6303-2, 11795-2, 49575-3 ####[facility] [id number] [place] [address] [place] HYPERCOAG PANEL INTERPon INTERPRETATION (HYPERCOAG) Normal [facility] Comment on above: Order Comment: Speci men Type: BLOOD SPECIMENOrdering Facility: [facility] Address: [address] [place] [address] Result Comment: Abno rmal - see comment below.SIGNIFICANT FINDINGS:1. Decreased antithrombin, Protein S, Protein C and fibrinogen4. Elevated factor VIIIA laboratory evaluation for congenital and acquired risk factors for thrombophilia was performed.Both the PT and APTT were elevated.The thrombin time was mildly prolonged and the anti-Xa screen was normal. A heparin, anti-Xa or direct thrombin inhibitor drug effect is unlikely.LUPUS ANTICOAGULANT STUDIES:There is no evidence for a lupus anticoagulant or other coagulation inhibitor at this time.The criteria for the diagnosis of a Lupus Anticoagulant, as detailed by the Subcommittee on Lupus Anticoagulants and Anti-Phospholipid Antibodies of the Scientific and Standardization Committee of the International Society on Thrombosis and Haemostasis (ISTH), are the following: (1) A prolonged phospholipid-dependent clotting test (screening test); (2) Evidence for an inhibitor (1:1 mix of patient:normal plasma); (3) Evidence that the inhibitor is phospholipid dependent and (4) Exclusion of specific inhibitors (ie, fVIII inhibitors, direct thrombin inhibitors, or heparin). Thromb. Haemost. 74:1185 (1995).ANTIPHOSPHOLIPID ANTIBODY STUDIES:The IgG, IgM and IgA anticardiolipin antibody titers were all negative.Antiphospholipid syndrome (APS) is present if at least one clinical criteria and one laboratory criteria are met. The clinical criteria for APS include the presence of vascular thrombosis or morbidity. The laboratory criteria for APS include positive testing for one of the following on two or more occasions, at least 12 weeks apart: (1) lupus anticoagulant; (2) anticardiolipin IgG or IgM in medium or high titer (>20 GPL or >20 MPL); (3) anti-beta 2 glycoprotein I IgG or IgM antibody. J. Thromb Haemost 4:295 (2006).PROTEIN STUDIES:The factor VIII clottable activity level is elevated with decreased levels of fibrinogen and C-reactive protein. A persistent elevation of factor VIII has been associated with an increased risk of venous thrombosis.Fibrinogen, Protein C, protein S and antithrombin are decreased. These laboratory results can be observed in a consumptive coagulopathy or disseminated intravascular coagulation (DIC). These findings can also be consistent with patient's current history of liver disease.GENOTYPING STUDIES:The activated protein C resistance ratio (APC-R) is normal. The Factor V Leiden mutation, a c.1601G>A variant (legacy name R506Q) in the Factor V (F5) gene, is unlikely.The patient is negative for the c.*97G>A variant (legacy name 48735Q>A) in the 3' untranslated region of the Factor II (F2) prothrombin gene. This result is not associated with an increased risk of thromboembolic disease. Please refer to the interpretation provided with the PT Gene Mutation result for further diagnostic and prognostic information.Other assay results were within the normal range.Please correlate these laboratory results with clinical findings and medication history.THE FOLLOWING TESTS WERE ADDED AND ARE REPORTED SEPARATELY: Protein C functional, Antithrombin functional, Antithrombin antigen, Protein S clottable, Protein S free APC-R, Factor VIII, and Hexagonal phase phospholipid neutralization. Performed By: #### L [id number], HCOAG, 6303-2, 65023-8, 71448-6 ####[facility] LABCLIA [id number] [address] [address] [place] Pathologist name Reviewed by Julia Howell M.D., Ph.D Normal [facility] Comment on above: Order Comment: Speci men Type: BLOOD SPECIMENOrdering Facility: [facility] Address: [address] [place] [address] Performed By: #### L [id number], HCOAG, 6303-2, 82382-0, 89772-1 ####[facility] LABIA [id number] [place] [address] [place] Haptoglob SerPl-mCncon 11-11 Haptoglobin [Mass/Vol] 15 mg/dL Low 31-238 [facility] Comment on above: Order Comment: Ezekiel ramirez Type: BLOOD SPECIMENOrdering Facility: [facility] Address: [address] [place] [address] Performed By: #### 2 4362-6, 4542-7 ####[facility] LABIA [id number] [place] [address] [place] HbA1c (Bld)on 11-11-2024 Average glucose Estimated from glycated hemoglobin (Bld) [Mass/Vol] 154 mg/dL Normal [facility] Comment on above: Order Comment: Ezekiel ramirez Type: BLOOD SPECIMENOrdering Facility: [facility] Address: [address] [place] [address] Result Comment: eAG: (Estimated average glucose) is a calculated value from HgbA1c and is auto claim representative of the average blood glucose level in the last 2-3 month period. Performed By: #### 5 5454-3, 24418-4 ####[facility] LABCLIA [id number] [address] [address] [place] HbA1c (Bld) [Mass fraction] 7.0 % High 4.3-5.6 [facility] Comment on above: Order Comment: Speci men Type: BLOOD SPECIMENOrdering Facility: [facility] Address: [address] [place] [address] Result Comment: Amer [place] Diabetes Association guidelines indicate that patients with HgbA1c in the range 5.7-6.4% are at increased risk for development of diabetes, and intervention by lifestyle modification may be beneficial. HgbA1c greater or equal to 6.5% is considered diagnostic of diabetes. Performed By: #### 5 5454-3, 78232-6 ####[facility] LABCLIA [id number] [place] [address] [place] Hepatic function 2000 panelo n 11-11-2024 Albumin [Mass/Vol] 2.1 g/dL Low 3.9-4.9 [facility] Comment on above: Order Comment: Speci men Type: BLOOD SPECIMENOrdering Facility: [facility] Address: [address] [place] [address] Performed By: #### 2 276-4, 42860-8, 12982-1, 06314-2, 277-1, 32632-5 ####[facility] LABIA [id number] [place] [id number] [place] ALP [Catalytic activity/Vol] 310 U/L High 38-113 [facility] Comment on above: Order Comment: Speci men Type: BLOOD SPECIMENOrdering Facility: [facility] Address: [address] [place] [address] Performed By: #### 2 276-4, 12272-5, 34209-6, 11462-2, 2776-1, 57904-9 ####[facility] LABIA [id number] [place] [id number] [place] ALT [Catalytic activity/Vol] 31 U/L Normal 10-54 [facility] Comment on above: Order Comment: Speci men Type: BLOOD SPECIMENOrdering Facility: [facility] Address: [address] [place] [address] Performed By: #### 2 276-4, 22889-2, 05476-8, 75100-2, 2777-1, 85509-7 ####[facility] LABCLIA [id number] [place] [address] [place] AST [Catalytic activity/Vol] 44 U/L High 14-40 [facility] Comment on above: Order Comment: Speci men Type: BLOOD SPECIMENOrdering Facility: [facility] Address: [address] [place] [address] Performed By: #### 2 276-4, 11397-3, 89852-5, 17420-1, 2777-1, 70372-5 ####[facility] LABCLIA [id number] [place] [address] [place] Bilirubin [Mass/Vol] 1.6 mg/dL High 0.2-1.3 [facility] Comment on above: Order Comment: Speci men Type: BLOOD SPECIMENOrdering Facility: [facility] Address: [address] [place] [address] Performed By: #### 2 276-4, 75746-8, 06175-0, 15878-1, 2777-1, 68867-0 ####[facility] LABCLIA [id number] [place] [address] [place] Bilirubin.conjugated [Mass/Vol] 1.0 mg/dL High <0.3 [facility] Comment on above: Order Comment: Speci men Type: BLOOD SPECIMENOrdering Facility: [facility] Address: [address] [place] [address] Performed By: #### 2 276-4, 48055-1, 77866-5, 74603-3, 2777-1, 01595-5 ####[facility] LABCLIA [id number] [address] [place] [address] [place] Protein [Mass/Vol] 5.3 g/dL Low 6.3-8.0 [facility] Comment on above: Order Comment: Speci men Type: BLOOD SPECIMENOrdering Facility: [facility] Address: [address] [place] [address] Performed By: #### 2 276-4, 92425-1, 00731-0, 02827-4, 7-1, 54254-9 ####[facility] LABCLIA [id number] [place] [id number] [place] IMMATURE PLATELET FRACTIONon 11-11-2024 Platelets reticulated/100 platelets Auto (Bld) 7.7 % High 0.9-7.2 [facility] Comment on above: Order Comment: Speci men Type: BLOOD SPECIMENOrdering Facility: [facility] Address: [address] [place] [address] Performed By: #### I PFR, 77082-6, 45866-4 ####[facility] LABCLIA [id number] [place] [address] [place] Iron and Iron binding capaci ty panelon 11-11-2024 Iron [Mass/Vol] 34 ug/dL Low 41-186 [facility] Comment on above: Order Comment: Speci men Type: BLOOD SPECIMENOrdering Facility: [facility] Address: [address] [place] [address] Performed By: #### 2 276-4, 85558-6, 34472-6, 56030-7, 7-1, 32038-6 ####[facility] LABIA [id number] [place] [id number] [place] Iron binding capacity [Mass/Vol] 180 ug/dL Low 232-386 [facility] Comment on above: Order Comment: Speci men Type: BLOOD SPECIMENOrdering Facility: [facility] Address: [address] [place] [address] Performed By: #### 2 276-4, 60951-5, 93351-8, 42797-6, 2777-1, 22797-9 ####[facility] LABCLIA [id number] [place] [address] [place] Iron/TIBC [Molar ratio] 18.9 % Normal 15.0-57.0 C [facility] Comment on above: Order Comment: Speci men Type: BLOOD SPECIMENOrdering Facility: [facility] Address: [address] [place] [address] Performed By: #### 2 276-4, 44768-1, 57128-4, 89808-3, 2777-1, 93694-8 ####[facility] LABIA [id number] [place] [address] [place] L[facility] LDH [Catalytic activity/Vol] 321 U/L High 135-225 [facility] Comment on above: Order Comment: Speci men Type: BLOOD SPECIMENOrdering Facility: [facility] Address: [address] [place] [address] Performed By: #### 2 039-6, 03699-0, 2532-0 ####[facility] LABIA [id number] [place] [address] [place] Lipase Fld[facility] 11-11-2024 Lipase (Body fld) [Catalytic activity/Vol] 29 U/L Normal See Comment [facility] Comment on above: Order Comment: Speci men Type: FLUID SPECIMENOrdering Facility: [facility] Address: [address] [place] [address] Result Comment: Pleu ral fluids: Lipase measurement in pleural fluid, in conjunction with amylase measurement, is considered a useful test for determining the cause of pleural effusions.Peritoneal fluids and drainage fluids: Pancreatic damage causes extravasation of lipase from the exocrine cells into the peritoneal space. In cases of pancreatitis, fluid lipase concentration can be several-fold times higher in fluid of pancreatic origin compared to concurrent serum lipase values.Pancreatic cyst fluid: Pancreatic cyst fluid lipase may aid in the differentiation of pancreatic cyst lesions and should be interpreted along with other clinical and laboratory information.References:1. CLSI. Analysis of Body Fluids in Clinical Chemistry Approved Guideline. CLSI document C49A. PAULETTE Diaz: Clinical Laboratory Standards [place]: 2007.2. David Guillory. A review of pancreatic cyst fluid analysis in the differential diagnosis of pancreatic cyst lesions. [employer] [employer] 2013:0:1-16. Performed By: #### 1 747-5, 1795-4, 71936-0, 2881-1 ####[facility] [id number] [place] [id number] [place] Lupus anticoagulant neutrali zation platelet Coag Ql (PPP)on 11-11-2024 aPTT Coag (Bld) [Time] 56.8 s High 30.2-43.0 [facility] Comment on above: Order Comment: Ezekiel ramirez Type: BLOOD SPECIMENOrdering Facility: [facility] Address: [address] [place] [address] Result Comment: This test was developed, and its performance characteristics determined by the [facility] Department of Pathology and Laboratory Medicine. It has not been cleared or approved by the FDA. The [facility] Department of Pathology and Laboratory Medicine is regulated under CLIA as qualified to perform high-complexity testing. This test is used for clinical purposes. It should not be regarded as investigational or for research. Performed By: #### L [id number], HCOAG, 6303-2, 89566-2, 82646-2 ####[facility] [id number] [place] [id number] [place] aPTT Coag (Bld) [Time] 36.5 s Normal 31.5-38.3 [facility] Comment on above: Order Comment: Ezekiel ramirez Type: BLOOD SPECIMENOrdering Facility: [facility] Address: [address] [place] [address] Result Comment: This test was developed, and its performance characteristics determined by the [facility] Department of Pathology and Laboratory Medicine. It has not been cleared or approved by the FDA. The [facility] Department of Pathology and Laboratory Medicine is regulated under CLIA as qualified to perform high-complexity testing. This test is used for clinical purposes. It should not be regarded as investigational or for research. Performed By: #### L [id number], HCOAG, 6303-2, 64773-6, 67910-8 ####[facility] LABCLIA [id number] [facility] [address] [place] [address] [place] PLATELET NEUT 0.0 Seconds Normal <1.9 [facility] Comment on above: Order Comment: Speci men Type: BLOOD SPECIMENOrdering Facility: [facility] Address: [address] [place] [address] Result Comment: This test was developed, and its performance characteristics determined by the [facility] Department of Pathology and Laboratory Medicine. It has not been cleared or approved by the FDA. The [facility] Department of Pathology and Laboratory Medicine is regulated under CLIA as qualified to perform high-complexity testing. This test is used for clinical purposes. It should not be regarded as investigational or for research. Performed By: #### L [id number], HCOAG, 6303-2, 28077-4, 22140-5 ####[facility] LABCLIA [id number] [address] [address] [place] MANUAL DIFFERENTIAL, BODY FL UIDon 11-11-2024 DIF TTL, BODY FLUID 100 cells counted Normal [facility] Comment on above: Order Comment: Speci men Type: FLUID SPECIMENOrdering Facility: [facility] Address: [address] [place] [address] Performed By: #### C CBF, [id number] ####[facility] LABCLIA [id number] [address] [place] [address] [place] LYMPH%, BF 37 % High 18-36 [facility] Comment on above: Order Comment: Speci men Type: FLUID SPECIMENOrdering Facility: [facility] Address: [address] [place] [address] Performed By: #### C CBF, [id number] ####[facility] LABCLIA [id number] [facility] [address] [place] [address] [place] MACRO%, BF 21 % Low 64-80 [facility] Comment on above: Order Comment: Speci men Type: FLUID SPECIMENOrdering Facility: [facility] Address: [address] [place] [id number] Performed By: #### C CBF, [id number] ####[facility] LABCLIA [id number] [address], [facility]95 [place] MESO %, BF 12 % High 0-2 [facility] Comment on above: Order Comment: Speci men Type: FLUID SPECIMENOrdering Facility: [facility] Address: [address] [place] [address] Performed By: #### C CBF, [id number] ####[facility] LABCLIA [id number] [address], [facility]95 [place] NEUT%, BF 26 % High 0-1 [facility] Comment on above: Order Comment: Speci men Type: FLUID SPECIMENOrdering Facility: [facility] Address: [address] [place] [address] Performed By: #### C CBF, [id number] ####[facility] LABCLIA [id number] [address], [facility]95 [place] REAC LYMPH %, BF 4 % Normal [facility] Comment on above: Order Comment: Speci men Type: FLUID SPECIMENOrdering Facility: [facility] Address: [address] [place] [address] Performed By: #### C CBF, [id number] ####[facility] LABCLIA [id number] [place] [id number] [place] MEDICAL EMERon 11-11-2024 MEDICAL KRISTINA Normal [facility] MEDICAL KRISTINA Normal [facility] Magnesium SerPl-mCncon 11-11 Magnesium [Mass/Vol] 2.3 mg/dL Normal 1.7-2.3 [facility] Comment on above: Order Comment: Ezekiel james Type: BLOOD SPECIMENOrdering Facility: [facility] Address: [address] [place] [address] Performed By: #### 2 276-4, 03584-8, 26491-6, 69139-2, 2777-1, 32817-6 ####[facility]CLIA [id number] [address] OF [facility] NURSING PROGon 11-11-2024 NURSING PROG Normal [facility] PLT DEP.AB, UNF. HEPARINon 0 11-11-2024 % REL HIGH DOSE HEP PORCINE 0 % Normal [facility] Comment on above: Order Comment: Ezekiel james Type: BLOOD SPECIMENOrdering Facility: [facility] Address: [address] [place] [address] Performed By: #### S ERORE ####[facility] [id number] [place] [address] % REL LOW DOSE HEP PORCINE 0 % Normal [facility] Comment on above: Order Comment: Ezekiel james Type: BLOOD SPECIMENOrdering Facility: [facility] Address: [address] [place] [address] Performed By: #### S ERORE ####[facility]IA [id number] [place] [address] SEROTONIN REL INTERP See Note Normal [facility] Comment on above: Order Comment: Ezekiel ramirez Type: BLOOD SPECIMENOrdering Facility: [facility] Address: [address] [place] [address] Result Comment: This patient's specimen demonstrates a negative result in theserotonin release assay. A diagnosis of heparin-inducedthrombocytopenia (HIT) is unlikely, but not completely excluded.A positive result would demonstrate >= 20% serotonin release fromreagent platelets in the presence of patient specimen and low-doseheparin (0.1 U/mL) and <20% serotonin release from reagentplatelets (inhibition of the reaction) in the presence of patientspecimen and high-dose heparin (100 U/mL). Additionalinformation regarding diagnosis of HIT is available [email or web address].INTERPRETIVE INFORMATION: ABRAHAM, Unfractionated HeparinThis test was developed and its performance characteristicsdetermined by [facility]. It has not been cleared orapproved by the [place] Food and Drug Administration. This test wasperformed in a CLIA certified laboratory and is intended forclinical purposes.Performed By: [id number] [place], [place] [address]Bzkiepzrvk Director: Lizandro Ordonez MD, PhDCLIA Number: [id number] Performed By: #### S ERORE ####[facility]ENTERCLIA [id number] [place] [address] ABRAHAM, UNFRACTIONATED HEPARIN Negative Normal Negative [facility] Comment on above: Order Comment: Speci men Type: BLOOD SPECIMENOrdering Facility: [facility] Address: [address] [place] [address] Performed By: #### S ERORE ####[facility] [id number] [place] [address] PROTHROMBIN GENE PCRon 11-11 PROTHROMBIN GENE MUTATION Normal [facility] Comment on above: Order Comment: Speci men Type: BLOOD SPECIMENOrdering Facility: [facility] Address: [address] [place] [address] Result Comment: Prot hrombin Gene MutationLaboratory Accession Number: [id number]:NORMALInterpretation:The DNA sample is negative for the c.*97G>A variant (legacy xxkq26558V>A) in the 3' untranslated region of the Factor II (F2) gene.This result is not associated with an increased risk of thromboembolicdisease. Thromboembolic disease is a multifactorial disorder and othercauses are not excluded by this result.Methodology:Isolated Genomic DNA from the patient's blood specimen is evaluatedfor the c*97G>A (g.[id number]) variant of the F2 gene [RefSeqNM_000506.53;GRCh38/hg38] by multiplex polymerase chain reaction (PCR)followed by melting curve analysis.Limitations:This assay is designed to detect the c.*97G>A (04453I>A) variant inthe F2 gene. Uncommon variants or single nucleotide polymorphisms mayaffect binding of probes and may rarely result in false negative,false positive or indeterminate results. This assay does not detectother disease-associated rare variants in F2 or other causes ofthromboembolic disease.Disclaimer:This test was developed and its performance characteristics determinedby [facility]'s Pathology and Laboratory Medicine Department. Ithas not been cleared or approved by the FDA. [facility] is regulated under CLIAas certified to perform high-complexity testing. This test is used forclinical purposes. It should not be regarded as investigational or forresearch.Test performed at [facility], [address] [place] [address]. CLIA Number: [id number]:1) Inheritied Thrombophilias in . ACOG Practice Bulletin. No.197. [place] [employer]. ObseteGynecol 2018;132:e18-34.2) Elfego SR, Kinsey FR, Jeremy PH, and Bernice RIVERA. A commongenetic variation in the 3'-untranslated region of the prothrombingene is associated with elevated plasma prothrombin levels and anincrease in venous thrombosis. Blood 88:3698-703, 1995.3) Rica I, Justus V, Rimyulianaman C, Komauricio-Natalia K. Nhvnemdsxws51005X>T: 16 new cases, association with the 94430T>G polymorphism,and literature review. J Thromb Haemost. 2009;9:1585-7.Interpretation performed at remote location (A1) by Fifi España MD Performed By: #### P TGEN ####[facility] [id number] [place] [address] [place] PT panel Coag (PPP)on 2024 INR Coag (PPP) [Relative time] 2.3 {INR} High 0.9-1.3 [facility] Comment on above: Order Comment: Speci men Type: BLOOD SPECIMENOrdering Facility: [facility] Address: [address] [place] [address] Result Comment: Sarah min K Antagonist (VKA) Therapeutic Range: INR 2 to 3 (Target INR of 2.5)Note: For patients treated with VKA drugs, such as warfarin, the [place] [employer] 2012 Guideline recommends a therapeutic INR range of 2 to 3 (target INR of 2.5). This recommendation includes high-risk patients with antiphospholipid syndrome with previous arterial or venous thromboembolism, current-generation mechanical or bioprosthetic aortic heart valve replacement.Note: Patients with mechanical aortic valve replacement and additional risk factors for thromboembolic events (atrial fibrillation, previous thromboembolism, LV dysfunction, hypercoagulable conditions) or an older generation mechanical AVR (i.e., ball in-Cage) or any mechanical MVR should have a INR therapeutic range of 2.5 to 3.5 (target INR of 3).Tammi GH, et al. Chest 2012, 141:7S-47SNishimura RA, et al. [facility] 2017, 70: 252-289 Performed By: #### P TTA, 68601-1 ####[facility] [id number] [place] [address] [place] PT Coag (PPP) [Time] 23.1 s High 9.7-13.0 [facility] Comment on above: Order Comment: Ezekiel ramirez Type: BLOOD SPECIMENOrdering Facility: [facility] Address: [address] [place] [address] Performed By: #### P TTA, 15049-6 ####[facility] [id number] [place] [address] [place] INR Coag (PPP) [Relative time] 2.1 {INR} High 0.9-1.3 [facility] Comment on above: Order Comment: Ezekiel ramirez Type: BLOOD SPECIMENOrdering Facility: [facility] Address: [address] [place] [address] Result Comment: Sarah min K Antagonist (VKA) Therapeutic Range: INR 2 to 3 (Target INR of 2.5)Note: For patients treated with VKA drugs, such as warfarin, the [place] [employer] 2012 Guideline recommends a therapeutic INR range of 2 to 3 (target INR of 2.5). This recommendation includes high-risk patients with antiphospholipid syndrome with previous arterial or venous thromboembolism, current-generation mechanical or bioprosthetic aortic heart valve replacement.Note: Patients with mechanical aortic valve replacement and additional risk factors for thromboembolic events (atrial fibrillation, previous thromboembolism, LV dysfunction, hypercoagulable conditions) or an older generation mechanical AVR (i.e., ball in-Cage) or any mechanical MVR should have a INR therapeutic range of 2.5 to 3.5 (target INR of 3).Tammi GH, et al. Chest 2012, 141:7S-47SNishimura RA, et al. [facility] 2017, 70: 252-289 Performed By: #### 3 4528-0 ####[facility] [id number] [place] [address] [place] PT Coag (PPP) [Time] 22.0 s High 9.7-13.0 [facility] Comment on above: Order Comment: Ezekiel ramirez Type: BLOOD SPECIMENOrdering Facility: [facility] Address: [address] [place] [address] Performed By: #### 3 4528-0 ####[facility] [id number] [place] [address] [place] PTT, ANTICOAGULANT THERAPYon 11-11-2024 aPTT Coag (PPP) [Time] EXTREMELY ABNORMA L RESULT. No clot detected at 320 seconds. Refer to anticoagulation nomogram for further actions. Critically abnormal (none) [facility] Comment on above: Order Comment: Ezekiel ramirez Type: BLOOD SPECIMENOrdering Facility: [facility] Address: [address] [place] [address] Result Comment: Resu lt rechecked.Sample checked for clot. Performed By: #### P TTAC, 47571-6 ####[facility] [id number] [place] [address] [place] Phosphate SerPl-mCncon 11-11 Phosphate [Mass/Vol] 2.6 mg/dL Low 2.7-4.8 [facility] Comment on above: Order Comment: Ezekiel ramirez Type: BLOOD SPECIMENOrdering Facility: [facility] Address: [address] [place] [address] Performed By: #### 2 276-4, 54709-2, 88432-4, 31936-7, 2777-1, 96782-1 ####[facility] LABCLIA [id number] [place] [address] [place] Prot Fld-mCncon 11-11-2024 Protein (Body fld) [Mass/Vol] 0.2 g/dL Normal See Comment [facility] Comment on above: Order Comment: Speci men Type: FLUID SPECIMENOrdering Facility: [facility] Address: [address] [place] [address] Result Comment: Sero us fluids: Effusions are the accumulation of clinically detected fluid in any of the serous cavities. Effusions are further into transudates and exudates, which aid in determining the etiology of the effusion.Transudate: Body fluid total protein measurement < 3.0 g/dL. A ratio of serous fluid total protein to a concurrent serum total protein < 0.5 indicates a transudate.Exudate: Body fluid total protein measurement >= 3.0 g/dL. A ratio of serous fluid total protein to a concurrent serum total protein >= 0.5 indicates an exudate.Reference: 1. CLSI. Analysis of Body Fluids in Clinical Chemistry Approved Guideline. CLSI document C49A. Joe [place]: Clinical Laboratory Standards [place]: 2007. Performed By: #### 1 747-5, 1795-4, 65514-6, 2881-1 ####[facility] LABCLIA [id number] [place] [id number] [place] Renal function 2000 panelon 11-11-2024 Albumin [Mass/Vol] 2.4 g/dL Low 3.9-4.9 [facility] Comment on above: Order Comment: Speci men Type: BLOOD SPECIMENOrdering Facility: [facility] Address: [address] [place] [address] Performed By: #### 2 4362-6, 4542-7 ####[facility] LABCLIA [id number] [address] [address] [place] Anion gap [Moles/Vol] 10 mmol/L Normal 8-15 [facility] Comment on above: Order Comment: Speci men Type: BLOOD SPECIMENOrdering Facility: [facility] Address: [address] [place], [place] [address] Performed By: #### 2 4362-6, 454-7 ####[facility] LABCLIA [id number] [place] [id number] [place] Calcium [Mass/Vol] 9.3 mg/dL Normal 8.5-10.2 [facility] Comment on above: Order Comment: Speci men Type: BLOOD SPECIMENOrdering Facility: [facility] Address: [address] [place] [address] Performed By: #### 2 4362-6, 4541-7 ####[facility] LABIA [id number] [place] [id number] [place] Chloride [Moles/Vol] 100 mmol/L Normal 98-107 [facility] Comment on above: Order Comment: Speci men Type: BLOOD SPECIMENOrdering Facility: [facility] Address: [address] [place] [address] Performed By: #### 2 4362-6, 4541-7 ####[facility] LABCLIA [id number] [place] [id number] [place] CO2 [Moles/Vol] 13 mmol/L Low 22-30 [facility] Comment on above: Order Comment: Speci men Type: BLOOD SPECIMENOrdering Facility: [facility] Address: [address] [place], [place] [address] Performed By: #### 2 4362-6, 4541-7 ####[facility] LABCLIA [id number] [address] [address] [place] Creatinine [Mass/Vol] 1.26 mg/dL High 0.73-1.22 [facility] Comment on above: Order Comment: Ezekiel ramirez Type: BLOOD SPECIMENOrdering Facility: [facility] Address: [address] [place] [address] Performed By: #### 2 4362-6, 4542-7 ####[facility] LABCLIA [id number] [place] [address] [place] Creatinine and Glomerular filtration rate.predicted panel (S/P/Bld) 66 mL/min/1.73m??? Normal >=60 [facility] Comment on above: Order Comment: Ezekiel ramirez Type: BLOOD SPECIMENOrdering Facility: [facility] Address: [address] [place] [address] Result Comment: Patric mated Glomerular Filtration Rate (eGFR) is calculated using the 2020 CKD-EPI creatinine equation. This equation utilizes serum creatinine, sex, and age as parameters. The creatinine assay has traceable calibration to isotope dilution-mass spectrometry. Refer to KDIGO guidelines for clinical interpretation. In patients with unstable renal function, e.g. those with acute kidney injury, the eGFR may not accurately reflect actual GFR. Performed By: #### 2 4362-6, 4542-7 ####[facility] LABCLIA [id number] [place] [id number] [place] Glucose [Mass/Vol] 255 mg/dL High 74-99 [facility] Comment on above: Order Comment: Ezekiel ramirez Type: BLOOD SPECIMENOrdering Facility: [facility] Address: [address] [place] [address] Result Comment: The [place] Diabetes Association (ADA) provides guidance for cutoff values for fasting glucose and random glucose. The ADA defines fasting as no caloric intake for at least 8 hours. Fasting plasma glucose results between 100 to 125 mg/dL indicate increased risk for diabetes (prediabetes).Fasting plasma glucose results greater than or equal to 126 mg/dL meet the criteria for diagnosis of diabetes. In the absence of unequivocal hyperglycemia, results should be confirmed by repeat testing. In a patient with classic symptoms of hyperglycemia or hyperglycemic crisis, random plasma glucose results greater than or equal to 200 mg/dL meet the criteria for diagnosis of diabetes.Reference: Standards of Medical Care in Diabetes 2016, [place] Diabetes Association. Diabetes Care. 2016.39(Suppl 1). Performed By: #### 2 4362-6, 7 ####[facility]CL[facility] [id number] [address] [address] [place] Phosphate [Mass/Vol] 2.5 mg/dL Low 2.7-4.8 [facility] Comment on above: Order Comment: Speci men Type: BLOOD SPECIMENOrdering Facility: [facility] Address: [address] [place], [place] [address] Performed By: #### 2 4362-6, 7 ####[facility] LABIA [id number] [place] [id number] [place] Potassium [Moles/Vol] 4.4 mmol/L Normal 3.7-5.1 [facility] Comment on above: Order Comment: Speci men Type: BLOOD SPECIMENOrdering Facility: [facility] Address: [address] [place], [place] [address] Performed By: #### 2 436-6, 7 ####[facility] LABIA [id number] [address] [address] [place] Sodium [Moles/Vol] 123 mmol/L Low 136-144 [facility] Comment on above: Order Comment: Speci men Type: BLOOD SPECIMENOrdering Facility: [facility] Address: [address] [place] [id number] Performed By: #### 2 4362-6, 7 ####[facility] LABIA [id number] [address] [address] [place] Urea nitrogen [Mass/Vol] 21 mg/dL Normal 9-24 [facility] Comment on above: Order Comment: Speci men Type: BLOOD SPECIMENOrdering Facility: [facility] Address: [address] [place], [place] [address] Performed By: #### 2 4362-6, 4541-7 ####[facility] LAB[facility]IA [id number] [place] [id number] [place] Retics #on 11-11-2024 Reticulocytes (Bld) [#/Vol] 0.31992 10*3/uL High 0.018-0.100 [facility] Comment on above: Order Comment: Speci men Type: BLOOD SPECIMENOrdering Facility: [facility] Address: [address] [place] [address] Performed By: #### I PFR, 31373-0, 95013-6 ####[facility] [id number] [place] [address] [place] Reticulocytes (Bld) [#/Vol]o n 11-11-2024 Reticulocytes/100 RBC (Bld) 4.1 % High 0.4-2.0 [facility] Comment on above: Order Comment: Speci men Type: BLOOD SPECIMENOrdering Facility: [facility] Address: [address] [place] [address] Performed By: #### I PFR, 65121-2, 56476-0 ####[facility] LABCLIA [id number] [place] [address] [place] SEPSIS LACTATEon 11-11-2024 Lactate [Moles/Vol] 3.4 mmol/L High <=2.0 [facility] Comment on above: Order Comment: Speci men Type: BLOOD SPECIMENOrdering Facility: [facility] Address: [address] [place] [address] Performed By: #### S LACT ####[facility]IA [id number] [place] [address] [place] Lactate [Moles/Vol] 3.6 mmol/L High <=2.0 [facility] Comment on above: Order Comment: Speci men Type: BLOOD SPECIMENOrdering Facility: [facility] Address: [address] [place] [address] Performed By: #### S LACT ####[facility] [id number] [place] [address] [place] Screen dRVVTon 11-11-2024 dRVVT Coag (PPP) [Time] 42.6 s Normal 32.0-45.7 C [facility] Comment on above: Order Comment: Speci men Type: BLOOD SPECIMENOrdering Facility: [facility] Address: [address] [place] [address] Performed By: #### L [id number], HCOAG, 6303-2, 82509-5, 89616-7 ####[facility] LABIA [id number] [place] [address] [place] US ABD LIVER VASCULARon 04-1 US ABD LIVER VASCULAR Normal [facility] US DOPPLER COMPLETEon 2024 US DOPPLER COMPLETE Normal [facility] XR ABDOMEN 1V SUPINEon 11-11 XR ABDOMEN 1V SUPINE Normal [facility] XR CHEST 1V FRONTAL PORTon 0 11-11-2024 XR CHEST 1V FRONTAL PORT Normal [facility] XR CHEST 1V FRONTAL PORT Normal [facility] aPTT PPPon 11-11-2024 aPTT Coag (PPP) [Time] 41.7 s High 23.0-32.4 [facility] Comment on above: Order Comment: Speci men Type: BLOOD SPECIMENOrdering Facility: [facility] Address: [address] [place] [address] Performed By: #### 3 255-7, 30499-0 ####[facility] [id number] [place] [address] [place] dRVVT Coag (PPP) [Time]on dRVVT factor substitution immediately after 1:2 addition of normal plasma Coag (PPP) [Time] 35.4 seconds Normal 32.0-45.7 [facility] Comment on above: Order Comment: Speci men Type: BLOOD SPECIMENOrdering Facility: [facility] Address: [address] [place] [address] Performed By: #### L [id number], HCOAG, 6303-2, 09947-2, 22715-1 ####[facility] LABCLIA [id number] [place] [address] [place] dRVVT/dRVVT.excess phospholipid Coag (PPP) [Ratio] 0.91 Normal <1.32 [facility] Comment on above: Order Comment: Speci men Type: BLOOD SPECIMENOrdering Facility: [facility] Address: [address] [place] [address] Performed By: #### L [id number], HCOAG, 6303-2, 41386-2, 18921-3 ####[facility] LABCLIA [id number] [place] [address] [place] ALP [Catalytic activity/Vol] Ordered By: Kathie Lemos on 11-10-2024 Serum or plasma alkaline phosphatase measurement 310 U/L High 40-129 [facility] ALT [Catalytic activity/Vol] Ordered By: Kathie Lemos on 11-10-2024 Serum or plasma alanine aminotransferase (ALT) measurement 36 U/L <47 [facility] Absolute lymphocyte countOrd ered By: Kathie Lemos on 11-10-2024 Lymphocytes Auto (Unsp spec) [#/Vol] 1.30 10*3/uL 0.83-4.51 [facility] Absolute neutrophil countOrd ered By: Kathie Lemos on 11-10-2024 Absolute neutrophil count 16.2 X10^3/uL High 2.0-7.7 [facility] Albumin [Mass/Vol]Ordered By : Kathie Lemos on 11-10-2024 Serum or plasma albumin measurement (mass/volume) 2.3 g/dL Low 3.5-5.0 [facility] Albumin/Globulin [Mass ratio ]Ordered By: Kathie Lemos on 11-10-2024 Serum or plasma albumin/globulin mass ratio 0.7 RATIO Low 0.9-2.4 [facility] Anion gap [Moles/Vol]Ordered By: Kathie Lemos on 11-10-2024 Anion gap in Serum or Plasma 11 - [facility] Anion gap in Serum or Plasma Ordered By: Kathie Lemos on 11-10-2024 Anion gap [Moles/Vol] 11 mmol/L - [facility] Automated lymphocyte count a s percentage of total leukocytesOrdered By: Kathie Lemos on 11-10-2024 Lymphocytes/100 WBC Auto (Unsp spec) 6.6 % Low 19-41 [facility] BUN/creatinine ratioOrdered By: Kathie Lemos on 11-10-2024 Urea nitrogen/Creatinine [Mass ratio] 16.6 mg/mg 10- [facility] BUN/creatinine ratio 16.6 RATIO 10- [facility] Bacteria LM.HPF (Urine sed) [#/Area]Ordered By: Kathie Lemos on 11-10-2024 Urine sediment bacteria count by microscopy (number/high power field) 2+ /hpf None Seen [facility] Basic Metabolic Profile (BMP )on 11-10-2024 BUN Normal 4-19 [facility] Comment on above: Result Comment: Devonte goodwin via OM: Ordered Performed By: #### L 100.0500, L500.2500 ####[facility] [address] [place], [address] Performed By: #### L 500.2500, L100.0100 ####[facility] [address] [place], [address] BUN/CRE Normal - [facility] Comment on above: Result Comment: Devonte goodwin via OM: Ordered Performed By: #### L 100.0500, L500.2500 ####[facility] [address] [place], [address] Performed By: #### L 500.2500, L100.0100 ####[facility] [address] [place], [address] Calcium Normal 7.6-11.0 [facility] Comment on above: Result Comment: Devonte goodwin via OM: Ordered Performed By: #### L 100.0500, L500.2500 ####[facility] [address] [place], [address] Performed By: #### L 500.2500, L100.0100 ####[facility] [address] [place], [address] CL Normal 98-108 [facility] Comment on above: Result Comment: Canc elled via OM: MD Ordered Performed By: #### L 100.0500, L500.2500 ####[facility] [address] [place], [address] Performed By: #### L 500.2500, L100.0100 ####[facility] [address] [place], [address] CO2 Normal 21.0-32.0 [facility] Comment on above: Result Comment: Canc elled via OM: MD Ordered Performed By: #### L 100.0500, L500.2500 ####[facility] [address] [place], [address] Performed By: #### L 500.2500, L100.0100 ####[facility] [address] [place], [address] CREAT,SERUM Normal 0.70-1.20 [facility] Comment on above: Result Comment: Canc elled via OM: MD Ordered Performed By: #### L 100.0500, L500.2500 ####[facility] [address] [place], [address] Performed By: #### L 500.2500, L100.0100 ####[facility] [address] [place], [address] eGFR Normal >60 [facility] Comment on above: Result Comment: Canc elled via OM: MD Ordered Performed By: #### L 100.0500, L500.2500 ####[facility] [address] [place], [address] Performed By: #### L 500.2500, L100.0100 ####[facility] [address] [place], [address] GAP Normal 5-15 [facility] Comment on above: Result Comment: Canc elled via OM: MD Ordered Performed By: #### L 100.0500, L500.2500 ####[facility] [address] [place], [address] Performed By: #### L 500.2500, L100.0100 ####[facility] [address] [place], [address] GLU Normal 70-99 [facility] Comment on above: Result Comment: Canc elled via OM: MD Ordered Performed By: #### L 100.0500, L500.2500 ####[facility] [address] [place], [address] Performed By: #### L 500.2500, L100.0100 ####[facility] [address] [place], [address] Potassium Normal 3.3-5.1 [facility] Comment on above: Result Comment: Canc elled via OM: MD Ordered Performed By: #### L 100.0500, L500.2500 ####[facility] [address] [place], [address] Performed By: #### L 500.2500, L100.0100 ####[facility] [address] [place], [address] Basic Metabolic Profile (BMP) Normal 133-145 [facility] Comment on above: Result Comment: Canc elled via OM: MD Ordered Performed By: #### L 100.0500, L500.2500 ####[facility] [address] [place], [address] Performed By: #### L 500.2500, L100.0100 ####[facility] [address] [place], [address] Basophil percentageOrdered B y: Kathie Lemos on 11-10-2024 Basophils/100 WBC (Bld) 0.5 % 0-1 [facility] Basophil percentage 0.5 % 0-1 [facility] Bedside Glucoseon 11-10-2024 FINGERSTICK GLU 265 mg/dL High 74-106 [facility] Comment on above: Result Comment: BRISA GEMENT OF PATIENT CARE PER NURSING PROTOCOL Performed By: #### L 501.080 ####[facility] [address] [place], [address] FINGERSTICK GLU 271 mg/dL High 74-106 [facility] Comment on above: Result Comment: BRISA GEMENT OF PATIENT CARE PER NURSING PROTOCOL Performed By: #### L 501.080 ####[facility] [address] [place], [address] FINGERSTICK GLU 255 mg/dL High 74-106 [facility] Comment on above: Result Comment: BRISA GEMENT OF PATIENT CARE PER NURSING PROTOCOL Performed By: #### L 501.080 ####[facility] [address] [place], [address] FINGERSTICK GLU 264 mg/dL High 74-106 [facility] Comment on above: Result Comment: BRISA GEMENT OF PATIENT CARE PER NURSING PROTOCOL Performed By: #### L 501.080 ####[facility] [address] [place], [address] Bilirubin Test strip Ql (U)O rdered By: Kathie Lemos on 11-10-2024 Bilirubin Ql (U) Negative Negative [facility] Urine total bilirubin detection by test strip Negative Negative [facility] Bilirubin, totalOrdered By: Kathie Lemos on 11-10-2024 Bilirubin [Mass/Vol] 2.09 mg/dL High 0.00-1.30 [facility] Bilirubin, total 2.09 mg/dL High 0.00-1.30 [facility] CBC W/Diff, Automatedon 04 Absolute Lymph 1.30 X10 3/uL Normal 0.83-4.51 [facility] Comment on above: Performed By: #### L 500.2500, L100.0100 ####[facility] [address] [place], [address] Absolute Neut 16.2 X10 3/uL High 2.0-7.7 [facility] Comment on above: Performed By: #### L 500.2500, L100.0100 ####[facility] [address] [place], [address] Basophils/100 WBC (Bld) 0.5 % Normal 0-1 [facility] Comment on above: Performed By: #### L 500.2500, L100.0100 ####[facility] [address] [place], [address] Eosinophils/100 WBC (Bld) 1.9 % Normal 0-5 [facility] Comment on above: Performed By: #### L 500.2500, L100.0100 ####[facility] [address] [place], [address] Erythrocyte distribution width (RBC) [Ratio] 18.1 % High 11.6-14.6 [facility] Comment on above: Performed By: #### L 500.2500, L100.0100 ####[facility] [address] [place], [address] Hematocrit (Bld) [Volume fraction] 32.9 % Low 40-54 [facility] Comment on above: Performed By: #### L 500.2500, L100.0100 ####[facility] [address] [place], [address] Hemoglobin (Bld) [Mass/Vol] 11.3 g/dL Low 13.0-16.5 [facility] Comment on above: Performed By: #### L 500.2500, L100.0100 ####[facility] [address] [place], [address] IG% 1.100 High 0.0-0.9 [facility] Comment on above: Result Comment: IG% - Immature Granulocytes (promyelocytes, myelocytes andmetamyelocytes) > 1% indicates that a LEFT SHIFT is Present. Performed By: #### L 500.2500, L100.0100 ####[facility] [address] [place], [address] Lymphocytes/100 WBC (Bld) 6.6 % Low 19-41 [facility] Comment on above: Performed By: #### L 500.2500, L100.0100 ####[facility] [address] [place], [address] MCH (RBC) [Entitic mass] 31.8 pg Normal 27.0-32.0 [facility] Comment on above: Performed By: #### L 500.2500, L100.0100 ####[facility] [address] [place], [address] MCHC (RBC) [Mass/Vol] 34.3 g/dL Normal 32-36 [facility] Comment on above: Performed By: #### L 500.2500, L100.0100 ####[facility] [address] [place], [address] MCV (RBC) [Entitic vol] 92.7 fL Normal 80-94 [facility] Comment on above: Performed By: #### L 500.2500, L100.0100 ####[facility] [address] [place], [address] Monocytes/100 WBC (Bld) 6.9 % Normal 0-10 [facility] Comment on above: Performed By: #### L 500.2500, L100.0100 ####[facility] [address] [place], [address] Neutrophils/100 WBC (Bld) 83.0 % High 47-70 [facility] Comment on above: Performed By: #### L 500.2500, L100.0100 ####[facility] [address] [place], [address] Nucleated RBC (Bld) [#/Vol] 0 10*3/uL Normal 0-5 [facility] Comment on above: Performed By: #### L 500.2500, L100.0100 ####[facility] [address] [place], [address] Platelet mean volume (Bld) [Entitic vol] 12.2 fL High 6.2-12.0 [facility] Comment on above: Performed By: #### L 500.2500, L100.0100 ####[facility] [address] [place], [address] Platelets (Bld) [#/Vol] 58 10*3/uL Low 150-450 [facility] Comment on above: Performed By: #### L 500.2500, L100.0100 ####[facility] [address] [place], [address] RBC (Bld) [#/Vol] 3.55 10*6/uL Low 4.6-6.2 [facility] Comment on above: Performed By: #### L 500.2500, L100.0100 ####[facility] [address] [place], [address] RDW SD 62.1 fl High 35.1-43.9 [facility] Comment on above: Performed By: #### L 500.2500, L100.0100 ####[facility] [address] [place], [address] WBC (Bld) [#/Vol] 19.6 10*3/uL High 4.4-11.0 [facility] Comment on above: Performed By: #### L 500.2500, L100.0100 ####[facility] [address] [place], [address] CBC-Complete Blood Cnt No Di ffon 11-10-2024 PATH REV N/A Normal [facility] Comment on above: Result Comment: AMENDED REPORT 11/10/242154 PATH REV previously reported as: December foll Performed By: #### L 100.0500 ####[facility] [address] [place], [address] PATH REV N/A Normal [facility] Comment on above: Order Comment: THROM BOCYTOPENIA NOTED Result Comment: AMENDED REPORT 11/10/242150 PATH REV previously reported as: December foll Performed By: #### L 100.0500, L500.2500 ####[facility] [address] [place], [address] HCT Normal 40-54 [facility] Comment on above: Result Comment: Canc elled via OM: MD Ordered Performed By: #### L 100.0500, L500.2500 ####[facility] [address] [place], [address] HGB Normal 13.0-16.5 [facility] Comment on above: Result Comment: Canc elled via OM: MD Ordered Performed By: #### L 100.0500, L500.2500 ####[facility] [address] [place], [address] MCH Normal 27.0-32.0 [facility] Comment on above: Result Comment: Canc elled via OM: MD Ordered Performed By: #### L 100.0500, L500.2500 ####[facility] [address] [place], [address] MCHC Normal 32-36 [facility] Comment on above: Result Comment: Canc elled via OM: MD Ordered Performed By: #### L 100.0500, L500.2500 ####[facility] [address] [place], [address] MCV Normal 80-94 [facility] Comment on above: Result Comment: Canc elled via OM: MD Ordered Performed By: #### L 100.0500, L500.2500 ####[facility] [address] [place], [address] PLT Normal 150-450 [facility] Comment on above: Result Comment: Canc elled via OM: MD Ordered Performed By: #### L 100.0500, L500.2500 ####[facility] [address] [place], [address] RBC Normal 4.6-6.2 [facility] Comment on above: Result Comment: Canc elled via OM: MD Ordered Performed By: #### L 100.0500, L500.2500 ####[facility] [address] [place], [address] RDW CV Normal 11.6-14.6 [facility] Comment on above: Result Comment: Canc elled via OM: MD Ordered Performed By: #### L 100.0500, L500.2500 ####[facility] [address] [place], [address] RDW SD Normal 35.1-43.9 [facility] Comment on above: Result Comment: Canc elled via OM: MD Ordered Performed By: #### L 100.0500, L500.2500 ####[facility] [address] [place], [address] WBC Normal 4.4-11.0 [facility] Comment on above: Result Comment: Canc elled via OM: Ordered Performed By: #### L 100.0500, L500.2500 ####[facility] [address] [place], [place], [address] Calcium [Mass/Vol]Ordered By : Kathie Lemos on 11-10-2024 Serum or plasma calcium measurement (mass/volume) 9.2 mg/dL 7.6-11.0 [facility] Carbon dioxide, total [Moles /volume] in Central venous bloodOrdered By: Kathie Lemos on 11-10-2024 CO2 [Moles/Vol] 13.3 mmol/L Low 21.0-32.0 [facility] Carbon dioxide, total [Moles/volume] in Central venous blood 13.3 mmol/L Low 21.0-32.0 [facility] Chloride assayOrdered By: Paulette Lemos on 11-10-2024 Chloride [Moles/Vol] 99 mmol/L 98-108 [facility] Chloride assay 99 mmol/L 98-108 [facility] Clarity (U)Ordered By: Kathie Lemos on 11-10-2024 Urine clarity Turbid Clear [facility] Color (U)Ordered By: Kathie bhatt on 11-10-2024 Urine color determination Brown Yellow [facility] Comprehensive Metabolic Prof ilon 11-10-2024 Albumin [Mass/Vol] 2.3 g/dL Low 3.5-5.0 [facility] Comment on above: Performed By: #### L 500.4050 ####[facility] [address] [place], [address] Albumin/Globulin [Mass ratio] 0.7 {ratio} Low 0.9-2.4 [facility] Comment on above: Performed By: #### L 500.4050 ####[facility] [address] [place], [address] ALK PHOS 310 U/L High 40-129 [facility] Comment on above: Performed By: #### L 500.4050 ####[facility] [address] [place], [address] ALT [Catalytic activity/Vol] 36 U/L Normal <=46 [facility] Comment on above: Performed By: #### L 500.4050 ####[facility] [address] [place], [address] AST [Catalytic activity/Vol] 58 U/L High <=37 [facility] Comment on above: Performed By: #### L 500.4050 ####[facility] [address] [place], [address] Bilirubin [Mass/Vol] 2.09 mg/dL High 0.00-1.30 [facility] Comment on above: Performed By: #### L 500.4050 ####[facility] [address] [place], [address] BUN/CRE 16.6 RATIO Normal 10-20 [facility] Comment on above: Performed By: #### L 500.4050 ####[facility] [address] [place], [address] Calcium [Mass/Vol] 9.2 mg/dL Normal 7.6-11.0 [facility] Comment on above: Performed By: #### L 500.4050 ####[facility] [address] [place], [address] Chloride [Moles/Vol] 99 mmol/L Normal 98-108 [facility] Comment on above: Performed By: #### L 500.4050 ####[facility] [address] [place], [address] CO2 [Moles/Vol] 13.3 mmol/L Low 21.0-32.0 [facility] Comment on above: Performed By: #### L 500.4050 ####[facility] [address] [place], [address] Creatinine [Mass/Vol] 1.13 mg/dL Normal 0.70-1.20 [facility] Comment on above: Performed By: #### L 500.4050 ####[facility] [address] [place], [address] ECRCL 88.23 ml/min Normal 50-250 [facility] Comment on above: Performed By: #### L 500.4050 ####[facility] [address] [place], [address] GAP 11 Normal 5-15 [facility] Comment on above: Performed By: #### L 500.4050 ####[facility] [address] [place], [address] GFR/1.73 sq M.predicted among non-blacks MDRD (S/P/Bld) [Vol rate/Area] 75 mL/min/{1.73_m2} Normal >60 [facility] Comment on above: Result Comment: mL/m in/1.73m2 CKD-EPI Creatinine Equation (2020) Performed By: #### L 500.4050 ####[facility] [address] [place], [address] Globulin (S) [Mass/Vol] 3.4 g/dL Normal 2.2-4.2 [facility] Comment on above: Performed By: #### L 500.4050 ####[facility] [address] [place], [address] Glucose [Mass/Vol] 298 mg/dL High 70-99 [facility] Comment on above: Performed By: #### L 500.4050 ####[facility] [address] [place], [address] Potassium [Moles/Vol] 3.6 mmol/L Normal 3.3-5.1 [facility] Comment on above: Performed By: #### L 500.4050 ####[facility] [address] [place], [place], [address] Sodium [Moles/Vol] 123 mmol/L Low 133-145 [facility] Comment on above: Performed By: #### L 500.4050 ####[facility] [address] [place], [place], [address] T PROT 5.7 g/dL Low 5.9-8.4 [facility] Comment on above: Performed By: #### L 500.4050 ####[facility] [address] [place], [place], [address] Urea nitrogen [Mass/Vol] 19 mg/dL Normal 4-19 [facility] Comment on above: Performed By: #### L 500.4050 ####[facility] [address] [place], [place], [address] Creatinine [Mass/Vol]Ordered By: Kathie Lemos on 11-10-2024 Serum creatinine measurement (mass/volume) 1.13 mg/dL 0.70-1.20 [facility] Discharge Instructionon 04-0 Discharge Instruction Normal [facility] Eosinophil percentageOrdered By: Kathie Lemos on 11-10-2024 Eosinophils/100 WBC (Bld) 1.9 % 0-5 [facility] Eosinophil percentage 1.9 % 0-5 [facility] Erythrocyte distribution wid th (RBC) [Ratio]Ordered By: Kathie Lemos on 11-10-2024 Erythrocyte distribution width ratio 18.1 % High 11.6-14.6 [facility] Erythrocyte distribution width standard deviation 62.1 fl High 35.1-43.9 [facility] Erythrocyte distribution wid th ratioOrdered By: Kathie Leoms on 11-10-2024 Erythrocyte distribution width (RBC) [Ratio] 18.1 % High 11.6-14.6 [facility] Erythrocyte distribution wid th standard deviationOrdered By: Kathie Lemos on 11-10-2024 Erythrocyte distribution width (RBC) [Ratio] 62.1 fl High 35.1-43.9 [facility] Estimation of creatinine [place] aranceOrdered By: Kathie Lemos on 11-10-2024 Estimation of creatinine clearance 88.23 ml/min 50-250 [facility] GFR/1.73 sq M.predicted niki g non-blacks MDRD (S/P/Bld) [Vol rate/Area]Ordered By: Kathie Lemos on 11-10-2024 Glomerular filtration rate (GFR) estimation/1.73 sq m using serum, plasma, or whole b 75 >60 [facility] Glomerular filtration rate ( GFR) estimation/1.73 sq m using serum, plasma, or whole bOrdered By: Kahtie Lemos on 11-10-2024 GFR/1.73 sq M.predicted among non-blacks MDRD (S/P/Bld) [Vol rate/Area] 75 mL/min/{1.73_m2} >60 [facility] Glucose Ql (U)Ordered By: Paulette Lemos on 11-10-2024 Urine glucose detection Normal mg/dl Normal [facility] Glucose [Mass/Vol]Ordered By : Kathie Lemos on 11-10-2024 Serum glucose measurement (mass/volume) 298 mg/dL High 70-99 [facility] Glucose measurement at bedsi deOrdered By: Kathie Lemos on 11-10-2024 Glucose [Mass/Vol] 265 mg/dL High 74-106 [facility] Glucose measurement at bedside 265 mg/dL High 74-106 [facility] Hematocrit Auto (Bld) [Volum e fraction]Ordered By: Kathie Lemos on 11-10-2024 Hematocrit (Bld) [Volume fraction] 32.9 % Low 40-54 [facility] Automated blood hematocrit (percentage) 32.9 % Low 40-54 [facility] Hemoglobin measurementOrdere d By: Kathie Lemos on 11-10-2024 Hemoglobin (Bld) [Mass/Vol] 11.3 g/dL Low 13.0-16.5 [facility] Hemoglobin measurement 11.3 g/dL Low 13.0-16.5 [facility] Immature granulocytes/100 WB C Auto (Bld)Ordered By: Kathie Lemos on 11-10-2024 Immature granulocytes/100 WBC (Bld) 1.100 % High 0.0-0.9 [facility] Automated immature granulocyte percentage 1.100 % High 0.0-0.9 [facility] International normalized rat io (INR) calculationOrdered By: Kathie Lemos on 11-10-2024 International normalized ratio (INR) calculation 3.1 [facility] Ketones Test strip Ql (U)Ord ered By: Kathie Lemos on 11-10-2024 Ketones Ql (U) 5 mg/dl High Negative [facility] Urine ketones detection by test strip 5 mg/dl High Negative [facility] Leukocyte esterase Test stri p Ql (U)Ordered By: Kathie Lemos on 11-10-2024 Urine leukocyte esterase detection by dipstick 500 /ul High Negative [facility] Lymphocytes Auto (Unsp spec) [#/Vol]Ordered By: Kathie Lemos on 11-10-2024 Absolute lymphocyte count 1.30 X10^3/uL 0.83-4.51 [facility] Lymphocytes/100 WBC Auto (Un sp spec)Ordered By: Kathie Lemos on 11-10-2024 Automated lymphocyte count as percentage of total leukocytes 6.6 % Low 19-41 [facility] MCV (RBC) [Entitic vol]Order ed By: Kathie Lemos on 11-10-2024 MCV (mean corpuscular volume) determination 92.7 fL 80-94 [facility] MCV (mean corpuscular volume ) determinationOrdered By: Kathie Lemos on 11-10-2024 MCV (RBC) [Entitic vol] 92.7 fL 80-94 [facility] Mean corpuscular hemoglobin (MCH) determinationOrdered By: Kathie Lemos on 11-10-2024 MCH (RBC) [Entitic mass] 31.8 pg 27.0-32.0 [facility] Mean corpuscular hemoglobin (MCH) determination 31.8 pg 27.0-32.0 [facility] Mean corpuscular hemoglobin concentration (MCHC) determinationOrdered By: Kathie Lemos on 11-10-2024 Mean corpuscular hemoglobin concentration (MCHC) determination 34.3 g/dL 32-36 [facility] Mean platelet volume determi nationOrdered By: Kathie Lemos on 11-10-2024 Mean platelet volume determination 12.2 fl High 6.2-12.0 [facility] Microscopic analysis of urin e for red blood cells (RBC)Ordered By: Kathie Lemos on 11-10-2024 Microscopic analysis of urine for red blood cells (RBC) > 100 SEEN /hpf 0-5 [facility] Monocyte percentageOrdered B y: Kathie Lemos on 11-10-2024 Monocytes/100 WBC (Bld) 6.9 % 0-10 [facility] Monocyte percentage 6.9 % 0-10 [facility] Mucus LM Ql (Urine sed)Order ed By: Kathie Lemos on 11-10-2024 Mucus Ql (Urine sed) 0 SEEN /hpf [facility] Neutrophil percentageOrdered By: Kathie Lemos on 11-10-2024 Neutrophils/100 WBC (Bld) 83.0 % High 47-70 [facility] Neutrophil percentage 83.0 % High 47-70 [facility] Nitrite Test strip Ql (U)Ord ered By: Kathie Lemos on 11-10-2024 Nitrite Ql (U) Positive High Negative [facility] Urine nitrite test by dipstick Positive High Negative [facility] No Panel InformationOrdered By: Kathie Lemos on 11-10-2024 58 U/L High <38 [facility] Nucleated red blood cell per centageOrdered By: Kathie Lemos on 11-10-2024 Nucleated red blood cell percentage 0 % 0-5 [facility] Platelet countOrdered By: Paulette Lemos on 11-10-2024 Platelets (Bld) [#/Vol] 58 10*3/uL Low 150-450 [facility] Platelet count 58 K/mm3 Low 150-450 [facility] Potassium (Unsp spec) [Mass/ Vol]Ordered By: Kathie Lemos on 11-10-2024 Potassium measurement (mass/volume) 3.6 mmol/L 3.3-5.1 [facility] Potassium measurement (mass/ volume)Ordered By: Kathie Lemos on 11-10-2024 Potassium (Unsp spec) [Mass/Vol] 3.6 mmol/L 3.3-5.1 [facility] Protein Test strip Ql (U)Ord ered By: Kathie Lemos on 11-10-2024 Protein Ql (U) 500 mg/dl High Negative [facility] Urine protein assay by test strip, semi-quantitative 500 mg/dl High Negative [facility] Prothrombin Time w/INRon INR Coag (PPP) [Relative time] 3.1 {INR} Normal [facility] Comment on above: Order Comment: Comme nts: Add onto previous labs if possiblePER PT'S NURSE-WILL DRAW OFF PT PICC Performed By: #### L 300.3900 ####[facility] [address] [place], [place], [id number] PT Coag (PPP) [Time] 32.3 s High 11.7-14.9 [facility] Comment on above: Order Comment: Comme nts: Add onto previous labs if possiblePER PT'S NURSE-WILL DRAW OFF PT PICC Performed By: #### L 300.3900 ####[facility] [address] [place], [place], [id number] Prothrombin timeOrdered By: Kathie Lemos on 11-10-2024 PT Coag (PPP) [Time] 32.3 s High 11.7-14.9 [facility] Prothrombin time 32.3 SECONDS High 11.7-14.9 [facility] RBC Auto (Bld) [#/Vol]Ordere d By: Kathei Lemos on 11-10-2024 RBC (Bld) [#/Vol] 3.55 10*6/uL Low 4.6-6.2 [facility] Automated blood erythrocyte count 3.55 M/mm3 Low 4.6-6.2 [facility] Serum creatinine measurement (mass/volume)Ordered By: Kathie Lemos on 11-10-2024 Creatinine [Mass/Vol] 1.13 mg/dL 0.70-1.20 [facility] Serum globulin measurementOr dered By: Kathie Lemos on 11-10-2024 Globulin (S) [Mass/Vol] 3.4 g/dL 2.2-4.2 [facility] Serum globulin measurement 3.4 g/dL 2.2-4.2 [facility] Serum glucose measurement (m ass/volume)Ordered By: Kathie Lemos on 11-10-2024 Glucose [Mass/Vol] 298 mg/dL High 70-99 [facility] Serum or plasma alanine thomas otransferase (ALT) measurementOrdered By: Kathie Lemos on 11-10-2024 ALT [Catalytic activity/Vol] 36 U/L <47 [facility] Serum or plasma albumin roosevelt urement (mass/volume)Ordered By: Kathie Lemos on 11-10-2024 Albumin [Mass/Vol] 2.3 g/dL Low 3.5-5.0 [facility] Serum or plasma albumin/glob ulin mass ratioOrdered By: Kathie Lemos on 11-10-2024 Albumin/Globulin [Mass ratio] 0.7 {ratio} Low 0.9-2.4 [facility] Serum or plasma alkaline kendrick sphatase measurementOrdered By: Kathie Lemos on 11-10-2024 ALP [Catalytic activity/Vol] 310 U/L High 40-129 [facility] Serum or plasma calcium roosevelt urement (mass/volume)Ordered By: Kathie Lemos on 11-10-2024 Calcium [Mass/Vol] 9.2 mg/dL 7.6-11.0 [facility] Serum or plasma urea nitroge n measurement (mass/volume)Ordered By: Kathie Lemos on 11-10-2024 Urea nitrogen [Mass/Vol] 19 mg/dL - [facility] Sodium levelOrdered By: Javed Lemos on 11-10-2024 Sodium [Moles/Vol] 123 mmol/L Low 133-145 [facility] Sodium level 123 mmol/L Low 133-145 [facility] Specific gravity (U) [Rel de nsity]Ordered By: Kathie Lemos on 11-10-2024 Urine specific gravity measurement 1.015 1.002-1.030 [facility] Squamous epithelial cells de tection in urine sediment by light microscopyOrdered By: Kathie Lemos on 11-10-2024 Epithelial cells.squamous LM Ql (Urine sed) 0 SEEN /hpf 0-5 [facility] Squamous epithelial cells detection in urine sediment by light microscopy 0 SEEN /hpf [facility] Total proteinOrdered By: Tyree Lemos on 11-10-2024 Protein [Mass/Vol] 5.7 g/dL Low 5.9-8.4 [facility] Total protein 5.7 g/dL Low 5.9-8.4 [facility] Urea nitrogen [Mass/Vol]Orde red By: Kathie Lemos on 11-10-2024 Serum or plasma urea nitrogen measurement (mass/volume) 19 mg/dL 4-19 [facility] Urinalysis, Completeon 11-10 BACTERIA 2+ /hpf Normal None Seen [facility] Comment on above: Order Comment: COLOR OF URINE MAY AFFECT DIPSTICK RESULTS.CLEAN CATCH Performed By: #### L 400.0001 ####[facility] [address] [place], [address] WBC 5-10 SEEN Normal 0-5 [facility] Comment on above: Order Comment: COLOR OF URINE MAY AFFECT DIPSTICK RESULTS.CLEAN CATCH Performed By: #### L 400.0001 ####[facility] [address] [place], [address] RBC > 100 SEEN Normal 0-5 [facility] Comment on above: Order Comment: COLOR OF URINE MAY AFFECT DIPSTICK RESULTS.CLEAN CATCH Performed By: #### L 400.0001 ####[facility] [address] [place], [address] EPI,SQUAMOUS 0 SEEN Normal 0-[address] [place] [address] Comment on above: Order Comment: COLOR OF URINE MAY AFFECT DIPSTICK RESULTS.CLEAN CATCH Performed By: #### L 400.0001 ####[facility] [address] [place], [address] Mucus Ql (Urine sed) 0 SEEN Normal [facility] Comment on above: Order Comment: COLOR OF URINE MAY AFFECT DIPSTICK RESULTS.CLEAN CATCH Performed By: #### L 400.0001 ####[facility] [address] [place], [address] Urine blood detectionOrdered By: Kathie Lemos on 11-10-2024 Urine blood detection 250 /ul High Negative [facility] Urine clarityOrdered By: Tyree Lemos on 11-10-2024 Clarity (U) Turbid Clear [facility] Urine color determinationOrd ered By: Kathie Lemos on 11-10-2024 Color (U) Brown Yellow [facility] Urine glucose detectionOrder ed By: Kathie Lemos on 11-10-2024 Glucose Ql (U) Normal mg/dl Normal [facility] Urine leukocyte esterase det ection by dipstickOrdered By: Kathie Lemos on 11-10-2024 Leukocyte esterase Test strip Ql (U) 500 /ul High Negative [facility] Urine pHOrdered By: Kathie garcias on 11-10-2024 pH (U) 6.5 [pH] 5.0 - 8.0 [facility] Urine sediment bacteria coun t by microscopy (number/high power field)Ordered By: Kathie Lemos on 11-10-2024 Bacteria LM.HPF (Urine sed) [#/Area] 2 /[HPF] None Seen [facility] Urine specific gravity measu rementOrdered By: Kathie Lemos on 11-10-2024 Specific gravity (U) [Rel density] 1.015 1.002-1.030 [facility] Urine urobilinogen measureme ntOrdered By: Kathie Lemos on 11-10-2024 Urobilinogen Ql (U) 1 mg/dl High Normal [facility] Urobilinogen Ql (U)Ordered B y: Kathie Lemos on 11-10-2024 Urine urobilinogen measurement 1 mg/dl High Normal [facility] White blood cell (WBC) count Ordered By: Kathie Lemos on 11-10-2024 WBC (Bld) [#/Vol] 19.6 10*3/uL High 4.4-11.0 [facility] White blood cell (WBC) count 19.6 K/mm3 High 4.4-11.0 [facility] White blood cell countOrdere d By: Kathie Lemos on 11-10-2024 White blood cell count 5-10 SEEN /hpf 0-5 [facility] White blood cell count 5-10 SEEN /hpf 0-5 [facility] pH (U)Ordered By: Kathie aguilar on 11-10-2024 Urine pH 6.5 5.0 - 8.0 [facility] Abdomen Single View (Portabl e)on 11-09-2024 Abdomen Single View (Portable) Normal [facility] Abdomen/Pelvis W IV Cont ONL Yon 11-09-2024 Abdomen/Pelvis W IV Cont ONLY Normal [facility] Ammoniaon 11-09-2024 Ammonia (P) [Moles/Vol] 104.0 umol/L High 16-60 [facility] Comment on above: Performed By: #### L 300.3900, L503.5510, L500.2500, L100.0100 ####[facility] [address] [place], [address] Basic Metabolic Profile (BMP )on 11-09-2024 BUN/CRE 16.6 RATIO Normal 10-20 [facility] Comment on above: Performed By: #### L 300.3900, L503.5510, L500.2500, L100.0100 ####[facility] [address] [place], [address] Calcium [Mass/Vol] 8.8 mg/dL Normal 7.6-11.0 [facility] Comment on above: Performed By: #### L 300.3900, L503.5510, L500.2500, L100.0100 ####[facility] [address] [place], [address] Chloride [Moles/Vol] 102 mmol/L Normal 98-108 [facility] Comment on above: Performed By: #### L 300.3900, L503.5510, L500.2500, L100.0100 ####[facility] [address] [place], [address] CO2 [Moles/Vol] 12.2 mmol/L Low 21.0-32.0 [facility] Comment on above: Performed By: #### L 300.3900, L503.5510, L500.2500, L100.0100 ####[facility] [address] [place], [address] Creatinine [Mass/Vol] 1.13 mg/dL Normal 0.70-1.20 [facility] Comment on above: Performed By: #### L 300.3900, L503.5510, L500.2500, L100.0100 ####[facility] [address] [place], [address] ECRCL 88.15 ml/min Normal 50-250 [facility] Comment on above: Performed By: #### L 300.3900, L503.5510, L500.2500, L100.0100 ####[facility] [address] [place], [address] GAP 10 Normal 5-15 [facility] Comment on above: Performed By: #### L 300.3900, L503.5510, L500.2500, L100.0100 ####[facility] [address] [place], [address] GFR/1.73 sq M.predicted among non-blacks MDRD (S/P/Bld) [Vol rate/Area] 75 mL/min/{1.73_m2} Normal >60 [facility] Comment on above: Result Comment: mL/m in/1.73m2 CKD-EPI Creatinine Equation (2020) Performed By: #### L 300.3900, L503.5510, L500.2500, L100.0100 ####[facility] [address] [place], [address] Glucose [Mass/Vol] 284 mg/dL High 70-99 [facility] Comment on above: Performed By: #### L 300.3900, L503.5510, L500.2500, L100.0100 ####[facility] [address] [place], [address] Potassium [Moles/Vol] 3.7 mmol/L Normal 3.3-5.1 [facility] Comment on above: Performed By: #### L 300.3900, L503.5510, L500.2500, L100.0100 ####[facility] [address] [place], [address] Sodium [Moles/Vol] 125 mmol/L Low 133-145 [facility] Comment on above: Performed By: #### L 300.3900, L503.5510, L500.2500, L100.0100 ####[facility] [address] [place], [address] Urea nitrogen [Mass/Vol] 19 mg/dL Normal 4-19 [facility] Comment on above: Performed By: #### L 300.3900, L503.5510, L500.2500, L100.0100 ####[facility] [address] [place], [address] BUN Normal 4-19 [facility] Comment on above: Result Comment: Canc elled via OM: MD Ordered Performed By: #### L 500.2500, L100.0500 ####[facility] [address] [place], [address] BUN/CRE Normal 10-20 [facility] Comment on above: Result Comment: Canc elled via OM: MD Ordered Performed By: #### L 500.2500, L100.0500 ####[facility] [address] [place], [address] Calcium Normal 7.6-11.0 [facility] Comment on above: Result Comment: Canc elled via OM: MD Ordered Performed By: #### L 500.2500, L100.0500 ####[facility] [address] [place], [address] CL Normal 98-108 [facility] Comment on above: Result Comment: Canc elled via OM: MD Ordered Performed By: #### L 500.2500, L100.0500 ####[facility] [address] [place], [address] CO2 Normal 21.0-32.0 [facility] Comment on above: Result Comment: Canc elled via OM: MD Ordered Performed By: #### L 500.2500, L100.0500 ####[facility] [address] [place], [address] CREAT,SERUM Normal 0.70-1.20 [facility] Comment on above: Result Comment: Canc elled via OM: MD Ordered Performed By: #### L 500.2500, L100.0500 ####[facility] [address] [place], [address] eGFR Normal >60 [facility] Comment on above: Result Comment: Canc elled via OM: MD Ordered Performed By: #### L 500.2500, L100.0500 ####[facility] [address] [place], [address] GAP Normal 5-15 [facility] Comment on above: Result Comment: Canc elled via OM: MD Ordered Performed By: #### L 500.2500, L100.0500 ####[facility] [address] [place], [address] GLU Normal 70-99 [facility] Comment on above: Result Comment: Canc elled via OM: MD Ordered Performed By: #### L 500.2500, L100.0500 ####[facility] [address] [place], [address] Potassium Normal 3.3-5.1 [facility] Comment on above: Result Comment: Canc elled via OM: MD Ordered Performed By: #### L 500.2500, L100.0500 ####[facility] [address] [place], [address] Basic Metabolic Profile (BMP) Normal 133-145 [facility] Comment on above: Result Comment: Canc elled via OM: MD Ordered Performed By: #### L 500.2500, L100.0500 ####[facility] [address] [place], [address] Bedside Glucoseon 11-09-2024 FINGERSTICK GLU 287 mg/dL High 74-106 [facility] Comment on above: Result Comment: BRISA GEMENT OF PATIENT CARE PER NURSING PROTOCOL Performed By: #### L 501.080 ####[facility] [address] [place], [address] FINGERSTICK GLU 250 mg/dL High 74-106 [facility] Comment on above: Result Comment: BRISA GEMENT OF PATIENT CARE PER NURSING PROTOCOL Performed By: #### L 501.080 ####[facility] [address] [place], [address] FINGERSTICK GLU 392 mg/dL High 74-106 [facility] Comment on above: Result Comment: BRISA GEMENT OF PATIENT CARE PER NURSING PROTOCOL Performed By: #### L 501.080 ####[facility] [address] [place], [address] FINGERSTICK GLU 283 mg/dL High -106 [facility] Comment on above: Result Comment: BRISA GEMENT OF PATIENT CARE PER NURSING PROTOCOL Performed By: #### L 501.080 ####[facility] [address] [place], [address] Blood manual differential co mment interpretation (narrative result)Ordered By: Kathie Lemos on 11-09-2024 Manual differential comment Marco Antonio (Bld) [Interp] SCANNED [facility] CBC W/Diff, Automatedon 04-0 PATH REV N/A Normal [facility] Comment on above: Result Comment: AMENDED REPORT 11/09/24 0753 PATH REV previously reported as: December tai Performed By: #### L 300.3900, L503.5510, L500.2500, L100.0100 ####[facility] [address] [place], [address] CBC-Complete Blood Cnt No Di ffon 11-09-2024 HCT Normal 40-54 [facility] Comment on above: Result Comment: Canc elljustin via OM: MD Ordered Performed By: #### L 500.2500, L100.0500 ####[facility] [address] [place], [address] HGB Normal 13.0-16.5 [facility] Comment on above: Result Comment: Canc elled via OM: MD Ordered Performed By: #### L 500.2500, L100.0500 ####[facility] [address] [place], [address] MCH Normal 27.0-32.0 [facility] Comment on above: Result Comment: Canc elled via OM: MD Ordered Performed By: #### L 500.2500, L100.0500 ####[facility] [address] [place], [address] MCHC Normal 32-36 [facility] Comment on above: Result Comment: Canc elled via OM: MD Ordered Performed By: #### L 500.2500, L100.0500 ####[facility] [address] [place], [address] MCV Normal 80-94 [facility] Comment on above: Result Comment: Canc elled via OM: MD Ordered Performed By: #### L 500.2500, L100.0500 ####[facility] [address] [place], [address] PLT Normal 150-450 [facility] Comment on above: Result Comment: Canc elled via OM: MD Ordered Performed By: #### L 500.2500, L100.0500 ####[facility] [address] [place], [address] RBC Normal 4.6-6.2 [facility] Comment on above: Result Comment: Canc elled via OM: MD Ordered Performed By: #### L 500.2500, L100.0500 ####[facility] [address] [place], [address] RDW CV Normal 11.6-14.6 [facility] Comment on above: Result Comment: Canc elled via OM: MD Ordered Performed By: #### L 500.2500, L100.0500 ####[facility] [address] [place], [address] RDW SD Normal 35.1-43.9 [facility] Comment on above: Result Comment: Canc elled via OM: MD Ordered Performed By: #### L 500.2500, L100.0500 ####[facility] [address] [place], [address] WBC Normal 4.4-11.0 [facility] Comment on above: Result Comment: Canc elled via OM: MD Ordered Performed By: #### L 500.2500, L100.0500 ####[facility] [address] [place], [address] Lactic Acidon 11-09-2024 Lactate [Moles/Vol] 2.4 mmol/L Invalid Interpretation Code 0.0-2.0 [facility] Comment on above: Result Comment: Crit ical Result(s) Called at:0644 by:??NOREEN ROMAN Results read back by same. Performed By: #### L 503.6005 ####[facility] [address] [place], [address] Lactic acid measurementOrder ed By: Kathie Lemos on 11-09-2024 Lactic acid measurement 2.4 mmol/L High 0.0-2.0 [facility] Manual differential comment Marco Antonio (Bld) [Interp]Ordered By: Kathie Lemos on 11-09-2024 Blood manual differential comment interpretation (narrative result) SCANNED [facility] Pathologist review Marco Antonio (Unsp spec) [Interp]Ordered By: Kathie Lemos on 11-09-2024 Review by pathologist N/A [facility] Platelet estimateOrdered By: Kathie Lemos on 11-09-2024 Platelets LM Ql (Bld) MKD DEC ADEQ [facility] Platelets LM Ql (Bld)Ordered By: Kathie Lemos on 11-09-2024 Platelet estimate MKD DEC ADEQ [facility] Prothrombin Time w/INRon INR Coag (PPP) [Relative time] 2.9 {INR} Normal [facility] Comment on above: Performed By: #### L 300.3900, L503.5510, L500.2500, L100.0100 ####[facility] [address] [place], [address] PT Coag (PPP) [Time] 31.1 s High 11.7-14.9 [facility] Comment on above: Performed By: #### L 300.3900, L503.5510, L500.2500, L100.0100 ####[facility] [address] [place], [address] Review by pathologistOrdered By: Kathie Lemos on 11-09-2024 Pathologist review Marco Antonio (Unsp spec) [Interp] N/A [facility] Venous blood ammonia measure mentOrdered By: Kathie Lemos on 11-09-2024 Ammonia (P) [Moles/Vol] 104.0 umol/L High 16-60 [facility] Venous blood ammonia measurement 104.0 umol/L High 16-60 [facility] Basic Metabolic Profile (BMP )on 11-08-2024 BUN/CRE 16.8 RATIO Normal 10-20 [facility] Comment on above: Performed By: #### L 500.2500, L501.2300, L501.5200, L501.2450, L503.6005 ####[facility] [address] [place], [address] Calcium [Mass/Vol] 9.1 mg/dL Normal 7.6-11.0 [facility] Comment on above: Performed By: #### L 500.2500, L501.2300, L501.5200, L501.2450, L503.6005 ####[facility] [address] [place], [address] Chloride [Moles/Vol] 99 mmol/L Normal 98-108 [facility] Comment on above: Performed By: #### L 500.2500, L501.2300, L501.5200, L501.2450, L503.6005 ####[facility] [address] [place], [address] CO2 [Moles/Vol] 14.8 mmol/L Low 21.0-32.0 [facility] Comment on above: Performed By: #### L 500.2500, L501.2300, L501.5200, L501.2450, L503.6005 ####[facility] [address] [place], [address] Creatinine [Mass/Vol] 1.16 mg/dL Normal 0.70-1.20 [facility] Comment on above: Performed By: #### L 500.2500, L501.2300, L501.5200, L501.2450, L503.6005 ####[facility] [address] [place], [address] ECRCL 85.99 ml/min Normal 50-250 [facility] Comment on above: Performed By: #### L 500.2500, L501.2300, L501.5200, L501.2450, L503.6005 ####[facility] [address] [place], [address] GAP 10 Normal 5-15 [facility] Comment on above: Performed By: #### L 500.2500, L501.2300, L501.5200, L501.2450, L503.6005 ####[facility] [address] [place], [address] GFR/1.73 sq M.predicted among non-blacks MDRD (S/P/Bld) [Vol rate/Area] 73 mL/min/{1.73_m2} Normal >60 [facility] Comment on above: Result Comment: mL/m in/1.73m2 CKD-EPI Creatinine Equation (2020) Performed By: #### L 500.2500, L501.2300, L501.5200, L501.2450, L503.6005 ####[facility] [address] [place], [address] Glucose [Mass/Vol] 376 mg/dL High 70-99 [facility] Comment on above: Performed By: #### L 500.2500, L501.2300, L501.5200, L501.2450, L503.6005 ####[facility] [address] [place], [address] Potassium [Moles/Vol] 3.5 mmol/L Normal 3.3-5.1 [facility] Comment on above: Performed By: #### L 500.2500, L501.2300, L501.5200, L501.2450, L503.6005 ####[facility] [address] [place], [address] Sodium [Moles/Vol] 124 mmol/L Low 133-145 [facility] Comment on above: Performed By: #### L 500.2500, L501.2300, L501.5200, L501.2450, L503.6005 ####[facility] [address] [place], [address] Urea nitrogen [Mass/Vol] 20 mg/dL High 4-19 [facility] Comment on above: Performed By: #### L 500.2500, L501.2300, L501.5200, L501.2450, L503.6005 ####[facility] [address] [place], [address] BUN/CRE 15.9 RATIO Normal 10-20 [facility] Comment on above: Performed By: #### L 100.0500, L500.2500 ####[facility] [address] [place], [address] Calcium [Mass/Vol] 9.1 mg/dL Normal 7.6-11.0 [facility] Comment on above: Performed By: #### L 100.0500, L500.2500 ####[facility] [address] [place], [address] Chloride [Moles/Vol] 102 mmol/L Normal 98-108 [facility] Comment on above: Performed By: #### L 100.0500, L500.2500 ####[facility] [address] [place], [address] CO2 [Moles/Vol] 13.4 mmol/L Low 21.0-32.0 [facility] Comment on above: Performed By: #### L 100.0500, L500.2500 ####[facility] [address] [place], [address] Creatinine [Mass/Vol] 1.26 mg/dL High 0.70-1.20 [facility] Health Comment on above: Performed By: #### L 100.0500, L500.2500 ####[facility] [address] [place], [address] ECRCL 79.16 ml/min Normal 50-250 [facility] Comment on above: Performed By: #### L 100.0500, L500.2500 ####[facility] [address] [place], [address] GAP 11 Normal 5-15 [facility] Comment on above: Performed By: #### L 100.0500, L500.2500 ####[facility] [address] [place], [address] GFR/1.73 sq M.predicted among non-blacks MDRD (S/P/Bld) [Vol rate/Area] 66 mL/min/{1.73_m2} Normal >60 [facility] Comment on above: Result Comment: mL/m in/1.73m2 CKD-EPI Creatinine Equation (2020) Performed By: #### L 100.0500, L500.2500 ####[facility] [address] [place], [address] Glucose [Mass/Vol] 349 mg/dL High 70-99 [facility] Comment on above: Performed By: #### L 100.0500, L500.2500 ####[facility] [address] [place], [address] Potassium [Moles/Vol] 3.6 mmol/L Normal 3.3-5.1 [facility] Comment on above: Performed By: #### L 100.0500, L500.2500 ####[facility] [address] [place], [address] Sodium [Moles/Vol] 126 mmol/L Low 133-145 [facility] Comment on above: Performed By: #### L 100.0500, L500.2500 ####[facility] [address] [place], [address] Urea nitrogen [Mass/Vol] 20 mg/dL High 4-19 [facility] Comment on above: Performed By: #### L 100.0500, L500.2500 ####[facility] [address] [place], [address] Bedside Glucoseon 11-08-2024 FINGERSTICK GLU 327 mg/dL High 74-106 [facility] Comment on above: Result Comment: BRISA GEMENT OF PATIENT CARE PER NURSING PROTOCOL Performed By: #### L 501.080 ####[facility] [address] [place], [address] FINGERSTICK GLU 317 mg/dL High 74-106 [facility] Comment on above: Result Comment: BRISA GEMENT OF PATIENT CARE PER NURSING PROTOCOL Performed By: #### L 501.080 ####[facility] [address] [place], [address] FINGERSTICK GLU 322 mg/dL High 74-106 [facility] Comment on above: Result Comment: BRISA GEMENT OF PATIENT CARE PER NURSING PROTOCOL Performed By: #### L 501.080 ####[facility] [address] [place], [address] FINGERSTICK GLU 297 mg/dL High 74-106 [facility] Comment on above: Result Comment: BRISA GEMENT OF PATIENT CARE PER NURSING PROTOCOL Performed By: #### L 501.080 ####[facility] [address] [place], [address] FINGERSTICK GLU 289 mg/dL High 74-106 [facility] Comment on above: Result Comment: BRISA GEMENT OF PATIENT CARE PER NURSING PROTOCOL Performed By: #### L 501.080 ####[facility] [address] [place], [address] Lactic Acidon 11-08-2024 Lactate [Moles/Vol] 3.1 mmol/L Invalid Interpretation Code 0.0-2.0 [facility] Comment on above: Order Comment: Y Result Comment: Crit ical Result(s) Called at:2349 by: NOREEN DANGELO??Results read back by same. Performed By: #### L 503.6005 ####[facility] [address] [place], [address] Lactate [Moles/Vol] 3.6 mmol/L Invalid Interpretation Code 0.0-2.0 [facility] Comment on above: Result Comment: Crit ical Result(s) Called at: 2037 by: SHIKHA ELDER??Results read back by same. Performed By: #### L 503.6005 ####[facility] [address] [place], [address] Lactate [Moles/Vol] 4.1 mmol/L Invalid Interpretation Code 0.0-2.0 [facility] Comment on above: Order Comment: Y Result Comment: Crit ical Result(s) Called at: 1620 by: SHIKHA RUEDA TO ZENIA Results read back by same.Critical Result(s) Called at: 1630 by: SHIKHA RUEDA TO ZENIA??Results read back by same. AMENDED REPORT 11/08/24 1632 LACTIC ACID previously reported as: 4.1 *H mmol/LCritical Result(s) Called at: 1620 by: SHIKHA RUEDA TO ZENIA Results read back by same. Performed By: #### L 500.2500, L501.2300, L501.5200, L501.2450, L503.6005 ####[facility] [address] [place], [place], [address] Lipaseon 11-08-2024 Lipase [Catalytic activity/Vol] 94 U/L High 13-75 [facility] Comment on above: Result Comment: Siddhartha bhat note:LIPASE revised reference range effective 22.New Lipase methodology. Expected to produce lower valuesthan the previous assay method.NEW Reference Range: 13 - 75 U/L Performed By: #### L 500.2500, L501.2300, L501.5200, L501.2450, L503.6005 ####[facility] [address] [place], [place], [id number] Lipase measurementOrdered By : Kathie Lemos on 11-08-2024 Lipase measurement 94 U/L High 13-75 [facility] Magnesiumon 11-08-2024 Magnesium [Mass/Vol] 2.4 mg/dL High 1.5-2.2 [facility] Comment on above: Performed By: #### L 500.2500, L501.2300, L501.5200, L501.2450, L503.6005 ####[facility] [address] [place], [place], [address] Magnesium (Unsp spec) [Mass/ Vol]Ordered By: Kathie Lemos on 11-08-2024 Magnesium measurement (mass/volume) 2.4 mg/dL High 1.5-2.2 [facility] Magnesium measurement (mass/ volume)Ordered By: Kathie Lemos on 11-08-2024 Magnesium (Unsp spec) [Mass/Vol] 2.4 mg/dL High 1.5-2.2 [facility] Phosphoruson 11-08-2024 Phosphate [Mass/Vol] 1.6 mg/dL Low 2.7-4.5 [facility] Comment on above: Performed By: #### L 500.2500, L501.2300, L501.5200, L501.2450, L503.6005 ####[facility] [address] [place], [address] Serum phosphorus measurement Ordered By: Kathie Lemos on 11-08-2024 Serum phosphorus measurement 1.6 mg/dL Low 2.7-4.5 [facility] Bedside Glucoseon 11-07-2024 FINGERSTICK GLU 281 mg/dL High 74-106 [facility] Comment on above: Result Comment: BRISA GEMENT OF PATIENT CARE PER NURSING PROTOCOL Performed By: #### L 501.080 ####[facility] [address] [place], [address] FINGERSTICK GLU 255 mg/dL High 74-106 [facility] Comment on above: Result Comment: BRISA GEMENT OF PATIENT CARE PER NURSING PROTOCOL Performed By: #### L 501.080 ####[facility] [address] [place], [address] FINGERSTICK GLU 286 mg/dL High -106 [facility] Comment on above: Result Comment: BRISA GEMENT OF PATIENT CARE PER NURSING PROTOCOL Performed By: #### L 501.080 ####[facility] [address] [place], [address] FINGERSTICK GLU 312 mg/dL High 74-106 [facility] Comment on above: Result Comment: BRISA GEMENT OF PATIENT CARE PER NURSING PROTOCOL Performed By: #### L 501.080 ####[facility] [address] [place], [address] Blood polychromasia detectio n by light microscopyOrdered By: Hill Acuña on 11-07-2024 Polychromasia LM Ql (Bld) 1+ [facility] Blood polychromasia detection by light microscopy 1+ [facility] CBC W/Diff, Automatedon 04-0 PATH REV N/A Normal [facility] Comment on above: Result Comment: AMENDED REPORT 11/07/24 1610 PATH REV previously reported as: May foll Performed By: #### L 500.4050, L100.0100 ####[facility] [address] [place], [address] PATH REV N/A Normal [facility] Comment on above: Result Comment: AMENDED REPORT 11/07/24 1424 PATH REV previously reported as: May foll Performed By: #### L 100.0100, L500.4050 ####[facility] [address] [place], [address] Anisocytosis Ql (Bld) 1+ Normal [facility] Comment on above: Performed By: #### L 500.4050, L501.5200, L501.2300, L100.0100 ####[facility] [address] [place], [address] OVALOCYTE 1+ Normal [facility] Comment on above: Performed By: #### L 500.4050, L501.5200, L501.2300, L100.0100 ####[facility] [address] [place], [address] PLT EST MOD DEC Normal ADEQ [facility] Comment on above: Performed By: #### L 500.4050, L501.5200, L501.2300, L100.0100 ####[facility] [address] [place], [address] POLYCHROMASIA 1+ Normal [facility] Comment on above: Performed By: #### L 500.4050, L501.5200, L501.2300, L100.0100 ####[facility] [address] [place], [address] Comprehensive Metabolic Prof ilon 11-07-2024 Albumin [Mass/Vol] 2.5 g/dL Low 3.5-5.0 [facility] Comment on above: Performed By: #### L 500.4050, L501.5200, L501.2300, L100.0100 ####[facility] [address] [place], [address] Albumin/Globulin [Mass ratio] 0.8 {ratio} Low 0.9-2.4 [facility] Comment on above: Performed By: #### L 500.4050, L501.5200, L501.2300, L100.0100 ####[facility] [address] [place], [address] ALK PHOS 271 U/L High 40-129 [facility] Comment on above: Performed By: #### L 500.4050, L501.5200, L501.2300, L100.0100 ####[facility] [address] [place], [address] ALT [Catalytic activity/Vol] 29 U/L Normal <=46 [facility] Comment on above: Performed By: #### L 500.4050, L501.5200, L501.2300, L100.0100 ####[facility] [address] [place], [address] AST [Catalytic activity/Vol] 38 U/L Normal <=37 [facility] Comment on above: Performed By: #### L 500.4050, L501.5200, L501.2300, L100.0100 ####[facility] [address] [place], [address] Bilirubin [Mass/Vol] 3.03 mg/dL High 0.00-1.30 [facility] Comment on above: Performed By: #### L 500.4050, L501.5200, L501.2300, L100.0100 ####[facility] [address] [place], [address] BUN/CRE 16.5 RATIO Normal 10-20 [facility] Comment on above: Performed By: #### L 500.4050, L501.5200, L501.2300, L100.0100 ####[facility] [address] [place], [address] Calcium [Mass/Vol] 9.4 mg/dL Normal 7.6-11.0 [facility] Comment on above: Performed By: #### L 500.4050, L501.5200, L501.2300, L100.0100 ####[facility] [address] [place], [address] Chloride [Moles/Vol] 102 mmol/L Normal 98-108 [facility] Comment on above: Performed By: #### L 500.4050, L501.5200, L501.2300, L100.0100 ####[facility] [address] [place], [address] CO2 [Moles/Vol] 12.9 mmol/L Low 21.0-32.0 [facility] Comment on above: Performed By: #### L 500.4050, L501.5200, L501.2300, L100.0100 ####[facility] [address] [place], [address] Creatinine [Mass/Vol] 1.10 mg/dL Normal 0.70-1.20 [facility] Comment on above: Performed By: #### L 500.4050, L501.5200, L501.2300, L100.0100 ####[facility] [address] [place], [address] ECRCL 89.64 ml/min Normal 50-250 [facility] Comment on above: Performed By: #### L 500.4050, L501.5200, L501.2300, L100.0100 ####[facility] [address] [place], [address] GAP 11 Normal 5-15 [facility] Comment on above: Performed By: #### L 500.4050, L501.5200, L501.2300, L100.0100 ####[facility] [address] [place], [address] GFR/1.73 sq M.predicted among non-blacks MDRD (S/P/Bld) [Vol rate/Area] 78 mL/min/{1.73_m2} Normal >60 [facility] Comment on above: Result Comment: mL/m in/1.73m2 CKD-EPI Creatinine Equation (2020) Performed By: #### L 500.4050, L501.5200, L501.2300, L100.0100 ####[facility] [address] [place], [address] Globulin (S) [Mass/Vol] 3.1 g/dL Normal 2.2-4.2 [facility] Comment on above: Performed By: #### L 500.4050, L501.5200, L501.2300, L100.0100 ####[facility] [address] [place], [address] Glucose [Mass/Vol] 286 mg/dL High 70-99 [facility] Comment on above: Performed By: #### L 500.4050, L501.5200, L501.2300, L100.0100 ####[facility] [address] [place], [address] Potassium [Moles/Vol] 3.6 mmol/L Normal 3.3-5.1 [facility] Comment on above: Performed By: #### L 500.4050, L501.5200, L501.2300, L100.0100 ####[facility] [address] [place], [address] Sodium [Moles/Vol] 127 mmol/L Low 133-145 [facility] Comment on above: Performed By: #### L 500.4050, L501.5200, L501.2300, L100.0100 ####[facility] [address] [place], [address] T PROT 5.6 g/dL Low 5.9-8.4 [facility] Comment on above: Performed By: #### L 500.4050, L501.5200, L501.2300, L100.0100 ####[facility] [address] [place], [address] Urea nitrogen [Mass/Vol] 18 mg/dL Normal 4-19 [facility] Comment on above: Performed By: #### L 500.4050, L501.5200, L501.2300, L100.0100 ####[facility] [address] [place], [address] Magnesiumon 11-07-2024 Magnesium [Mass/Vol] 2.3 mg/dL High 1.5-2.2 [facility] Comment on above: Performed By: #### L 500.4050, L501.5200, L501.2300, L100.0100 ####[facility] [address] [place], [address] Ovalocyte detectionOrdered B y: Hill Acuña on 11-07-2024 Ovalocytes LM Ql (Bld) 1+ [facility] Phosphoruson 11-07-2024 Phosphate [Mass/Vol] 1.7 mg/dL Low 2.7-4.5 [facility] Comment on above: Performed By: #### L 500.4050, L501.5200, L501.2300, L100.0100 ####[facility] [address] [place], [address] Ammoniaon 11-06-2024 Ammonia (P) [Moles/Vol] 93.5 umol/L High 16-60 [facility] Comment on above: Performed By: #### L 503.5510 ####[facility] [address] [place], [address] Bedside Glucoseon 11-06-2024 FINGERSTICK GLU 288 mg/dL High 74-106 [facility] Comment on above: Result Comment: BRISA GEMENT OF PATIENT CARE PER NURSING PROTOCOL Performed By: #### L 501.080 ####[facility] [address] [place], [address] FINGERSTICK GLU 276 mg/dL High 74-106 [facility] Comment on above: Result Comment: BRISA GEMENT OF PATIENT CARE PER NURSING PROTOCOL Performed By: #### L 501.080 ####[facility] [address] [place], [address] FINGERSTICK GLU 278 mg/dL High 74-106 [facility] Comment on above: Result Comment: BRISA GEMENT OF PATIENT CARE PER NURSING PROTOCOL Performed By: #### L 501.080 ####[facility] [address] [place], [address] FINGERSTICK GLU 292 mg/dL High 74-106 [facility] Comment on above: Result Comment: BRISA GEMENT OF PATIENT CARE PER NURSING PROTOCOL Performed By: #### L 501.080 ####[facility] [address] [place], [address] CBC W/Diff, Automatedon 04-0 PLT EST MOD DEC Normal ADEQ [facility] Comment on above: Performed By: #### L 500.4050, L100.0100 ####[facility] [address] [place], [address] Comprehensive Metabolic Prof ilon 11-06-2024 Albumin [Mass/Vol] 2.4 g/dL Low 3.5-5.0 [facility] Comment on above: Performed By: #### L 500.4050, L100.0100 ####[facility] [address] [place], [address] Albumin/Globulin [Mass ratio] 0.8 {ratio} Low 0.9-2.4 [facility] Comment on above: Performed By: #### L 500.4050, L100.0100 ####[facility] [address] [place], [address] ALK PHOS 244 U/L High 40-129 [facility] Comment on above: Performed By: #### L 500.4050, L100.0100 ####[facility] [address] [place], [address] ALT [Catalytic activity/Vol] 29 U/L Normal <=46 [facility] Comment on above: Performed By: #### L 500.4050, L100.0100 ####[facility] [address] [place], [address] AST [Catalytic activity/Vol] 32 U/L Normal <=37 [facility] Comment on above: Performed By: #### L 500.4050, L100.0100 ####[facility] [address] [place], [address] Bilirubin [Mass/Vol] 2.22 mg/dL High 0.00-1.30 [facility] Comment on above: Performed By: #### L 500.4050, L100.0100 ####[facility] [address] [place], [address] BUN/CRE 17.8 RATIO Normal 10-20 [facility] Comment on above: Performed By: #### L 500.4050, L100.0100 ####[facility] [address] [place], [address] Calcium [Mass/Vol] 9.8 mg/dL Normal 7.6-11.0 [facility] Comment on above: Performed By: #### L 500.4050, L100.0100 ####[facility] [address] [place], [address] Chloride [Moles/Vol] 103 mmol/L Normal 98-108 [facility] Comment on above: Performed By: #### L 500.4050, L100.0100 ####[facility] [address] [place], [address] CO2 [Moles/Vol] 14.9 mmol/L Low 21.0-32.0 [facility] Comment on above: Performed By: #### L 500.4050, L100.0100 ####[facility] [address] [place], [address] Creatinine [Mass/Vol] 1.04 mg/dL Normal 0.70-1.20 [facility] Comment on above: Performed By: #### L 500.4050, L100.0100 ####[facility] [address] [place], [address] ECRCL 93.54 ml/min Normal 50-250 [facility] Comment on above: Performed By: #### L 500.4050, L100.0100 ####[facility] [address] [place], [address] GAP 11 Normal 5-15 [facility] Comment on above: Performed By: #### L 500.4050, L100.0100 ####[facility] [address] [place], [address] GFR/1.73 sq M.predicted among non-blacks MDRD (S/P/Bld) [Vol rate/Area] 83 mL/min/{1.73_m2} Normal >60 [facility] Comment on above: Result Comment: mL/m in/1.73m2 CKD-EPI Creatinine Equation (2020) Performed By: #### L 500.4050, L100.0100 ####[facility] [address] [place], [address] Globulin (S) [Mass/Vol] 3.1 g/dL Normal 2.2-4.2 [facility] Comment on above: Performed By: #### L 500.4050, L100.0100 ####[facility] [address] [place], [address] Glucose [Mass/Vol] 311 mg/dL High 70-99 [facility] Comment on above: Performed By: #### L 500.4050, L100.0100 ####[facility] [address] [place], [address] Potassium [Moles/Vol] 3.3 mmol/L Normal 3.3-5.1 [facility] Comment on above: Performed By: #### L 500.4050, L100.0100 ####[facility] [address] [place], [address] Sodium [Moles/Vol] 129 mmol/L Low 133-145 [facility] Comment on above: Performed By: #### L 500.4050, L100.0100 ####[facility] [address] [place], [address] T PROT 5.4 g/dL Low 5.9-8.4 [facility] Comment on above: Performed By: #### L 500.4050, L100.0100 ####[facility] [address] [place], [address] Urea nitrogen [Mass/Vol] 19 mg/dL Normal 4-19 [facility] Comment on above: Performed By: #### L 500.4050, L100.0100 ####[facility] [address] [place], [address] Ammoniaon 11-05-2024 Ammonia (P) [Moles/Vol] 99.8 umol/L High 16-60 [facility] Comment on above: Performed By: #### L 503.5510 ####[facility] [address] [place], [address] Bedside Glucoseon 11-05-2024 FINGERSTICK GLU 264 mg/dL High 74-106 [facility] Comment on above: Result Comment: BRISA GEMENT OF PATIENT CARE PER NURSING PROTOCOL Performed By: #### L 501.080 ####[facility] [address] [place], [address] FINGERSTICK GLU 253 mg/dL High 74-106 [facility] Comment on above: Result Comment: BRISA GEMENT OF PATIENT CARE PER NURSING PROTOCOL Performed By: #### L 501.080 ####[facility] [address] [place], [address] FINGERSTICK GLU 245 mg/dL High 74-106 [facility] Comment on above: Result Comment: BRISA GEMENT OF PATIENT CARE PER NURSING PROTOCOL Performed By: #### L 501.080 ####[facility] [address] [place], [address] FINGERSTICK GLU 269 mg/dL High 74-106 [facility] Comment on above: Result Comment: BRISA GEMENT OF PATIENT CARE PER NURSING PROTOCOL Performed By: #### L 501.080 ####[facility] [address] [place], [address] CBC W/Diff, Automatedon 04-0 PATH REV N/A Normal [facility] Comment on above: Result Comment: AMENDED REPORT 11/05/24 0835 PATH REV previously reported as: December Performed By: #### L 500.4050, L501.5200, L501.2300, L100.0100 ####[facility] [address] [place], [address] Anisocytosis Ql (Bld) 1+ Normal [facility] Comment on above: Performed By: #### L 100.0100, L500.4050 ####[facility] [address] [place], [address] PLT EST MKD DEC Normal ADEQ [facility] Comment on above: Performed By: #### L 100.0100, L500.4050 ####[facility] [address] [place], [address] POLYCHROMASIA 1+ Normal [facility] Comment on above: Performed By: #### L 100.0100, L500.4050 ####[facility] [address] [place], [address] Comprehensive Metabolic Prof ilon 11-05-2024 Bilirubin [Mass/Vol] 2.17 mg/dL High 0.00-1.30 [facility] Comment on above: Performed By: #### L 100.0100, L500.4050 ####[facility] [address] [place], [address] Ammoniaon 11-04-2024 Ammonia (P) [Moles/Vol] 92.2 umol/L High 16-60 [facility] Comment on above: Performed By: #### L 503.5510 ####[facility] [address] [place], [address] Bedside Glucoseon 11-04-2024 FINGERSTICK GLU 253 mg/dL High 74-106 [facility] Comment on above: Result Comment: BRISA OMROCHO OF PATIENT CARE PER NURSING PROTOCOL Performed By: #### L 501.080 ####[facility] [address] [place], [address] FINGERSTICK GLU 243 mg/dL High 74-106 [facility] Comment on above: Result Comment: BRISA GEMENT OF PATIENT CARE PER NURSING PROTOCOL Performed By: #### L 501.080 ####[facility] [address] [place], [address] FINGERSTICK GLU 248 mg/dL High 74-106 [facility] Comment on above: Result Comment: BRISA GEMENT OF PATIENT CARE PER NURSING PROTOCOL Performed By: #### L 501.080 ####[facility] [address] [place], [address] FINGERSTICK GLU 295 mg/dL High 74-106 [facility] Comment on above: Result Comment: BRISA GEMENT OF PATIENT CARE PER NURSING PROTOCOL Performed By: #### L 501.080 ####[facility] [address] [place], [address] Comprehensive Metabolic Prof ilon 11-04-2024 Albumin [Mass/Vol] 2.5 g/dL Low 3.5-5.0 [facility] Comment on above: Performed By: #### L 500.4050, L100.0100 ####[facility] [address] [place], [address] Albumin/Globulin [Mass ratio] 0.9 {ratio} Normal 0.9-2.4 [facility] Comment on above: Performed By: #### L 500.4050, L100.0100 ####[facility] [address] [place], [address] ALK PHOS 230 U/L High 40-129 [facility] Comment on above: Performed By: #### L 500.4050, L100.0100 ####[facility] [address] [place], [address] ALT [Catalytic activity/Vol] 33 U/L Normal <=46 [facility] Comment on above: Performed By: #### L 500.4050, L100.0100 ####[facility] [address] [place], [address] AST [Catalytic activity/Vol] 41 U/L High <=37 [facility] Comment on above: Performed By: #### L 500.4050, L100.0100 ####[facility] [address] [place], [address] Bilirubin [Mass/Vol] 2.25 mg/dL High 0.00-1.30 [facility] Comment on above: Performed By: #### L 500.4050, L100.0100 ####[facility] [address] [place], [address] BUN/CRE 18.6 RATIO Normal 10-20 [facility] Comment on above: Performed By: #### L 500.4050, L100.0100 ####[facility] [address] [place], [address] Calcium [Mass/Vol] 9.5 mg/dL Normal 7.6-11.0 [facility] Comment on above: Performed By: #### L 500.4050, L100.0100 ####[facility] [address] [place], [address] Chloride [Moles/Vol] 107 mmol/L Normal 98-108 [facility] Comment on above: Performed By: #### L 500.4050, L100.0100 ####[facility] [address] [place], [address] CO2 [Moles/Vol] 12.6 mmol/L Low 21.0-32.0 [facility] Comment on above: Performed By: #### L 500.4050, L100.0100 ####[facility] [address] [place], [address] Creatinine [Mass/Vol] 1.05 mg/dL Normal 0.70-1.20 [facility] Comment on above: Performed By: #### L 500.4050, L100.0100 ####[facility] [address] [place], [address] ECRCL 92.74 ml/min Normal 50-250 [facility] Comment on above: Performed By: #### L 500.4050, L100.0100 ####[facility] [address] [place], [address] GAP 12 Normal 5-15 [facility] Comment on above: Performed By: #### L 500.4050, L100.0100 ####[facility] [address] [place], [address] GFR/1.73 sq M.predicted among non-blacks MDRD (S/P/Bld) [Vol rate/Area] 82 mL/min/{1.73_m2} Normal >60 [facility] Comment on above: Result Comment: mL/m in/1.73m2 CKD-EPI Creatinine Equation (2020) Performed By: #### L 500.4050, L100.0100 ####[facility] [address] [place], [address] Globulin (S) [Mass/Vol] 2.9 g/dL Normal 2.2-4.2 [facility] Comment on above: Performed By: #### L 500.4050, L100.0100 ####[facility] [address] [place], [address] Glucose [Mass/Vol] 280 mg/dL High 70-99 [facility] Comment on above: Performed By: #### L 500.4050, L100.0100 ####[facility] [address] [place], [address] Potassium [Moles/Vol] 3.6 mmol/L Normal 3.3-5.1 [facility] Comment on above: Performed By: #### L 500.4050, L100.0100 ####[facility] [address] [place], [address] Sodium [Moles/Vol] 131 mmol/L Low 133-145 [facility] Comment on above: Performed By: #### L 500.4050, L100.0100 ####[facility] [address] [place], [address] T PROT 5.4 g/dL Low 5.9-8.4 [facility] Comment on above: Performed By: #### L 500.4050, L100.0100 ####[facility] [address] [place], [address] Urea nitrogen [Mass/Vol] 20 mg/dL High 4-19 [facility] Comment on above: Performed By: #### L 500.4050, L100.0100 ####[facility] [address] [place], [address] Ammoniaon 11-03-2024 Ammonia (P) [Moles/Vol] 63.5 umol/L High 16-60 [facility] Comment on above: Performed By: #### L 503.5510 ####[facility] [address] [place], [address] Band form neutrophils/100 WB C (Bld)Ordered By: Hill Acuña on 11-03-2024 Blood band neutrophil count as percentage of total leukocytes 6 % High 0-5 [facility] Bedside Glucoseon 11-03-2024 FINGERSTICK GLU 239 mg/dL High 74-106 [facility] Comment on above: Result Comment: BRSIA MOROCHO OF PATIENT CARE PER NURSING PROTOCOL Performed By: #### L 501.080 ####[facility] [address] [place], [address] FINGERSTICK GLU 282 mg/dL High 74-106 [facility] Comment on above: Result Comment: BRISA GEMENT OF PATIENT CARE PER NURSING PROTOCOL Performed By: #### L 501.080 ####[facility] [address] [place], [address] FINGERSTICK GLU 262 mg/dL High 74-106 [facility] Comment on above: Result Comment: BRISA GEMENT OF PATIENT CARE PER NURSING PROTOCOL Performed By: #### L 501.080 ####[facility] [address] [place], [address] FINGERSTICK GLU 303 mg/dL High 74-106 [facility] Comment on above: Result Comment: BRISA GEMENT OF PATIENT CARE PER NURSING PROTOCOL Performed By: #### L 501.080 ####[facility] [address] [place], [address] Blood band neutrophil count as percentage of total leukocytesOrdered By: Hill Acuña on 11-03-2024 Band form neutrophils/100 WBC (Bld) 6 % High 0-5 [facility] Blood eosinophils/100 leukoc ytesOrdered By: Hill Acuña on 11-03-2024 Eosinophils/100 WBC (Bld) 1 % 0-5 [facility] Blood lymphocytes/100 leukoc ytesOrdered By: Hill Acuña on 11-03-2024 Lymphocytes/100 WBC (Bld) 2 % Low 19-41 [facility] Blood lymphocytes/100 leukocytes 2 % 0-10 [facility] Blood metamyelocytes/100 bri kocytesOrdered By: Hill Acuña on 11-03-2024 Metamyelocytes/100 WBC (Bld) 1 % 0-1 [facility] Blood metamyelocytes/100 leukocytes 1 % 0-5 [facility] Blood monocytes/100 leukocyt esOrdered By: Hill Acuña on 11-03-2024 Monocytes/100 WBC (Bld) 2 % 0-10 [facility] Blood segmented neutrophils/ 100 leukocytesOrdered By: Hill Acuña on 11-03-2024 Segmented neutrophils/100 WBC (Bld) 85 % High 47-70 [facility] Cells counted Molgen (Bld/Ti ss) [#]Ordered By: Hill Acuña on 11-03-2024 Total cell count 100 MANUAL DIFF [facility] Comprehensive Metabolic Prof ilon 11-03-2024 Albumin [Mass/Vol] 2.4 g/dL Low 3.5-5.0 [facility] Comment on above: Performed By: #### L 100.0100, L500.4050 ####[facility] [address] [place], [address] Albumin/Globulin [Mass ratio] 0.7 {ratio} Low 0.9-2.4 [facility] Comment on above: Performed By: #### L 100.0100, L500.4050 ####[facility] [address] [place], [address] ALK PHOS 249 U/L High 40-129 [facility] Comment on above: Performed By: #### L 100.0100, L500.4050 ####[facility] [address] [place], [address] ALT [Catalytic activity/Vol] 34 U/L Normal <=46 [facility] Comment on above: Performed By: #### L 100.0100, L500.4050 ####[facility] [address] [place], [address] AST [Catalytic activity/Vol] 54 U/L High <=37 [facility] Comment on above: Result Comment: Hemo lysis present, Results??could be affected.?? Performed By: #### L 100.0100, L500.4050 ####[facility] [address] [place], [address] Bilirubin [Mass/Vol] 1.86 mg/dL High 0.00-1.30 [facility] Comment on above: Performed By: #### L 100.0100, L500.4050 ####[facility] [address] [place], [address] BUN/CRE 17.7 RATIO Normal 10-20 [facility] Comment on above: Performed By: #### L 100.0100, L500.4050 ####[facility] [address] [place], [address] Calcium [Mass/Vol] 9.3 mg/dL Normal 7.6-11.0 [facility] Comment on above: Performed By: #### L 100.0100, L500.4050 ####[facility] [address] [place], [address] Chloride [Moles/Vol] 107 mmol/L Normal 98-108 [facility] Comment on above: Performed By: #### L 100.0100, L500.4050 ####[facility] [address] [place], [address] CO2 [Moles/Vol] 11.0 mmol/L Low 21.0-32.0 [facility] Comment on above: Performed By: #### L 100.0100, L500.4050 ####[facility] [address] [place], [address] Creatinine [Mass/Vol] 1.16 mg/dL Normal 0.70-1.20 [facility] Comment on above: Performed By: #### L 100.0100, L500.4050 ####[facility] [address] [place], [address] ECRCL 78.33 ml/min Normal 50-250 [facility] Comment on above: Performed By: #### L 100.0100, L500.4050 ####[facility] [address] [place], [address] GAP 12 Normal 5-15 [facility] Comment on above: Performed By: #### L 100.0100, L500.4050 ####[facility] [address] [place], [address] GFR/1.73 sq M.predicted among non-blacks MDRD (S/P/Bld) [Vol rate/Area] 73 mL/min/{1.73_m2} Normal >60 [facility] Comment on above: Result Comment: mL/m in/1.73m2 CKD-EPI Creatinine Equation (2020) Performed By: #### L 100.0100, L500.4050 ####[facility] [address] [place], [address] Globulin (S) [Mass/Vol] 3.3 g/dL Normal 2.2-4.2 [facility] Comment on above: Performed By: #### L 100.0100, L500.4050 ####[facility] [address] [place], [address] Glucose [Mass/Vol] 288 mg/dL High 70-99 [facility] Comment on above: Performed By: #### L 100.0100, L500.4050 ####[facility] [address] [place], [address] Potassium [Moles/Vol] 3.7 mmol/L Normal 3.3-5.1 [facility] Comment on above: Result Comment: Hemo lysis present, Results??could be affected.?? Performed By: #### L 100.0100, L500.4050 ####[facility] [address] [place], [address] Sodium [Moles/Vol] 130 mmol/L Low 133-145 [facility] Comment on above: Performed By: #### L 100.0100, L500.4050 ####[facility] [address] [place], [address] T PROT 5.7 g/dL Low 5.9-8.4 [facility] Comment on above: Performed By: #### L 100.0100, L500.4050 ####[facility] [address] [place], [address] Urea nitrogen [Mass/Vol] 21 mg/dL High 4-19 [facility] Comment on above: Performed By: #### L 100.0100, L500.4050 ####[facility] [address] [place], [address] Culture, Blood (WB)on 2024 CUB Blood cultures x2, f rom two different sites No growth in 5 days. Normal [facility] Comment on above: Performed By: #### M 200.1000, M600.5000 ####[facility] [address] [place], [address] CUB No growth in 5 days. Normal [facility] Comment on above: Performed By: #### M 200.1000 ####[facility] [address] [place], [address] Ova and Parasites 8623on OP Normal [facility] Comment on above: Performed By: #### M 200.1000, M600.5000 ####[facility] [address] [place], [address] Segmented neutrophils/100 WB C (Bld)Ordered By: Hill Acuña on 11-03-2024 Blood segmented neutrophils/100 leukocytes 85 % High 47-70 [facility] Total cell countOrdered By: Hill Acuña on 11-03-2024 Cells counted Molgen (Bld/Tiss) [#] 100 MANUAL DIFF [facility] Bedside Glucoseon 11-02-2024 FINGERSTICK GLU 281 mg/dL High 74-106 [facility] Comment on above: Result Comment: BRISA MOROCHO OF PATIENT CARE PER NURSING PROTOCOL Performed By: #### L 501.080 ####[facility] [address] [place], [address] FINGERSTICK GLU 230 mg/dL High 74-106 [facility] Comment on above: Result Comment: BRISA GEMENT OF PATIENT CARE PER NURSING PROTOCOL Performed By: #### L 501.080 ####[facility] [address] [place], [address] FINGERSTICK GLU 180 mg/dL High 74-106 [facility] Comment on above: Result Comment: BRISA GEMENT OF PATIENT CARE PER NURSING PROTOCOL Performed By: #### L 501.080 ####[facility] [address] [place], [address] FINGERSTICK GLU 161 mg/dL High 74-106 [facility] Comment on above: Result Comment: BRISA GEMENT OF PATIENT CARE PER NURSING PROTOCOL Performed By: #### L 501.080 ####[facility] [address] [place], [address] Comprehensive Metabolic Prof [facility] 11-02-2024 Albumin [Mass/Vol] 2.3 g/dL Low 3.5-5.0 [facility] Comment on above: Performed By: #### L 500.4050, L501.5200, L501.2300, L100.0100 ####[facility] [address] [place], [address] Albumin/Globulin [Mass ratio] 0.7 {ratio} Low 0.9-2.4 [facility] Comment on above: Performed By: #### L 500.4050, L501.5200, L501.2300, L100.0100 ####[facility] [address] [place], [address] ALK PHOS 221 U/L High 40-129 [facility] Comment on above: Performed By: #### L 500.4050, L501.5200, L501.2300, L100.0100 ####[facility] [address] [place], [address] ALT [Catalytic activity/Vol] 29 U/L Normal <=46 [facility] Comment on above: Performed By: #### L 500.4050, L501.5200, L501.2300, L100.0100 ####[facility] [address] [place], [address] AST [Catalytic activity/Vol] 45 U/L High <=37 [facility] Comment on above: Performed By: #### L 500.4050, L501.5200, L501.2300, L100.0100 ####[facility] [address] [place], [address] Bilirubin [Mass/Vol] 2.06 mg/dL High 0.00-1.30 [facility] Comment on above: Performed By: #### L 500.4050, L501.5200, L501.2300, L100.0100 ####[facility] [address] [place], [address] BUN/CRE 22.0 RATIO High 10-20 [facility] Comment on above: Performed By: #### L 500.4050, L501.5200, L501.2300, L100.0100 ####[facility] [address] [place], [address] Calcium [Mass/Vol] 9.1 mg/dL Normal 7.6-11.0 [facility] Comment on above: Performed By: #### L 500.4050, L501.5200, L501.2300, L100.0100 ####[facility] [address] [place], [address] Chloride [Moles/Vol] 109 mmol/L High 98-108 [facility] Comment on above: Performed By: #### L 500.4050, L501.5200, L501.2300, L100.0100 ####[facility] [address] [place], [address] CO2 [Moles/Vol] 12.2 mmol/L Low 21.0-32.0 [facility] Comment on above: Performed By: #### L 500.4050, L501.5200, L501.2300, L100.0100 ####[facility] [address] [place], [address] Creatinine [Mass/Vol] 1.09 mg/dL Normal 0.70-1.20 [facility] Comment on above: Performed By: #### L 500.4050, L501.5200, L501.2300, L100.0100 ####[facility] [address] [place], [address] ECRCL 83.27 ml/min Normal 50-250 [facility] Comment on above: Performed By: #### L 500.4050, L501.5200, L501.2300, L100.0100 ####[facility] [address] [place], [address] GAP 11 Normal 5-15 [facility] Comment on above: Performed By: #### L 500.4050, L501.5200, L501.2300, L100.0100 ####[facility] [address] [place], [address] GFR/1.73 sq M.predicted among non-blacks MDRD (S/P/Bld) [Vol rate/Area] 79 mL/min/{1.73_m2} Normal >60 [facility] Comment on above: Result Comment: mL/m in/1.73m2 CKD-EPI Creatinine Equation (2020) Performed By: #### L 500.4050, L501.5200, L501.2300, L100.0100 ####[facility] [address] [place], [address] Globulin (S) [Mass/Vol] 3.1 g/dL Normal 2.2-4.2 [facility] Comment on above: Performed By: #### L 500.4050, L501.5200, L501.2300, L100.0100 ####[facility] [address] [place], [address] Glucose [Mass/Vol] 174 mg/dL High 70-99 [facility] Comment on above: Performed By: #### L 500.4050, L501.5200, L501.2300, L100.0100 ####[facility] [address] [place], [address] Potassium [Moles/Vol] 3.2 mmol/L Low 3.3-5.1 [facility] Comment on above: Result Comment: Hemo lysis present, Results??could be affected.?? Performed By: #### L 500.4050, L501.5200, L501.2300, L100.0100 ####[facility] [address] [place], [address] Sodium [Moles/Vol] 133 mmol/L Normal 133-145 [facility] Comment on above: Performed By: #### L 500.4050, L501.5200, L501.2300, L100.0100 ####[facility] [address] [place], [address] T PROT 5.4 g/dL Low 5.9-8.4 [facility] Comment on above: Performed By: #### L 500.4050, L501.5200, L501.2300, L100.0100 ####[facility] [address] [place], [address] Urea nitrogen [Mass/Vol] 24 mg/dL High 4-19 [facility] Comment on above: Performed By: #### L 500.4050, L501.5200, L501.2300, L100.0100 ####[facility] [address] [place], [address] Erythrocyte morphology asses smentOrdered By: Hill Acuña on 11-02-2024 RBC morphology finding Nom (Bld) NORM C+C NORMAL NORM C&C [facility] Magnesiumon 11-02-2024 Magnesium [Mass/Vol] 2.0 mg/dL Normal 1.5-2.2 [facility] Comment on above: Performed By: #### L 500.4050, L501.5200, L501.2300, L100.0100 ####[facility] [address] [place], [address] Phosphoruson 11-02-2024 Phosphate [Mass/Vol] 2.2 mg/dL Low 2.7-4.5 [facility] Comment on above: Performed By: #### L 500.4050, L501.5200, L501.2300, L100.0100 ####[facility] [address] [place], [address] RBC morphology finding Nom ( Bld)Ordered By: Hill Acuña on 11-02-2024 Erythrocyte morphology assessment NORM C+C NORMAL NORM C&C [facility] Bedside Glucoseon 11-01-2024 FINGERSTICK GLU 172 mg/dL High 74-106 [facility] Comment on above: Result Comment: BRISA GEMENT OF PATIENT CARE PER NURSING PROTOCOL Performed By: #### L 501.080 ####[facility] [address] [place], [address] FINGERSTICK GLU 181 mg/dL High 74-106 [facility] Comment on above: Result Comment: BRISA GEMENT OF PATIENT CARE PER NURSING PROTOCOL Performed By: #### L 501.080 ####[facility] [address] [place], [address] FINGERSTICK GLU 209 mg/dL High 74-106 [facility] Comment on above: Result Comment: BRISA GEMENT OF PATIENT CARE PER NURSING PROTOCOL Performed By: #### L 501.080 ####[facility] [address] [place], [address] FINGERSTICK GLU 232 mg/dL High 74-106 [facility] Comment on above: Result Comment: BRISA MOROCHO OF PATIENT CARE PER NURSING PROTOCOL Performed By: #### L 501.080 ####[facility] [address] [place], [address] Comprehensive Metabolic Prof ilon 11-01-2024 Albumin [Mass/Vol] 2.6 g/dL Low 3.5-5.0 [facility] Comment on above: Performed By: #### L 100.0100, L500.4050 ####[facility] [address] [place], [address] Albumin/Globulin [Mass ratio] 0.8 {ratio} Low 0.9-2.4 [facility] Comment on above: Performed By: #### L 100.0100, L500.4050 ####[facility] [address] [place], [address] ALK PHOS 253 U/L High 40-129 [facility] Comment on above: Performed By: #### L 100.0100, L500.4050 ####[facility] [address] [place], [address] ALT [Catalytic activity/Vol] 24 U/L Normal <=46 [facility] Comment on above: Performed By: #### L 100.0100, L500.4050 ####[facility] [address] [place], [address] AST [Catalytic activity/Vol] 39 U/L High <=37 [facility] Comment on above: Performed By: #### L 100.0100, L500.4050 ####[facility] [address] [place], [address] Bilirubin [Mass/Vol] 2.11 mg/dL High 0.00-1.30 [facility] Comment on above: Performed By: #### L 100.0100, L500.4050 ####[facility] [address] [place], [address] BUN/CRE 22.4 RATIO High 10-20 [facility] Comment on above: Performed By: #### L 100.0100, L500.4050 ####[facility] [address] [place], [address] Calcium [Mass/Vol] 9.5 mg/dL Normal 7.6-11.0 [facility] Comment on above: Performed By: #### L 100.0100, L500.4050 ####[facility] [address] [place], [address] Chloride [Moles/Vol] 110 mmol/L High 98-108 [facility] Comment on above: Performed By: #### L 100.0100, L500.4050 ####[facility] [address] [place], [address] CO2 [Moles/Vol] 13.0 mmol/L Low 21.0-32.0 [facility] Comment on above: Performed By: #### L 100.0100, L500.4050 ####[facility] [address] [place], [address] Creatinine [Mass/Vol] 1.19 mg/dL Normal 0.70-1.20 [facility] Comment on above: Performed By: #### L 100.0100, L500.4050 ####[facility] [address] [place], [address] ECRCL 76.09 ml/min Normal 50-250 [facility] Comment on above: Performed By: #### L 100.0100, L500.4050 ####[facility] [address] [place], [address] GAP 13 Normal 5-15 [facility] Comment on above: Performed By: #### L 100.0100, L500.4050 ####[facility] [address] [place], [address] GFR/1.73 sq M.predicted among non-blacks MDRD (S/P/Bld) [Vol rate/Area] 71 mL/min/{1.73_m2} Normal >60 [facility] Comment on above: Result Comment: mL/m in/1.73m2 CKD-EPI Creatinine Equation (2020) Performed By: #### L 100.0100, L500.4050 ####[facility] [address] [place], [address] Globulin (S) [Mass/Vol] 3.1 g/dL Normal 2.2-4.2 [facility] Comment on above: Performed By: #### L 100.0100, L500.4050 ####[facility] [address] [place], [address] Glucose [Mass/Vol] 235 mg/dL High 70-99 [facility] Comment on above: Performed By: #### L 100.0100, L500.4050 ####[facility] [address] [place], [address] Potassium [Moles/Vol] 3.4 mmol/L Normal 3.3-5.1 [facility] Comment on above: Performed By: #### L 100.0100, L500.4050 ####[facility] [address] [place], [address] Sodium [Moles/Vol] 135 mmol/L Normal 133-145 [facility] Comment on above: Performed By: #### L 100.0100, L500.4050 ####[facility] [address] [place], [address] T PROT 5.6 g/dL Low 5.9-8.4 [facility] Comment on above: Performed By: #### L 100.0100, L500.4050 ####[facility] [address] [place], [place], [address] Urea nitrogen [Mass/Vol] 27 mg/dL High 4-19 [facility] Comment on above: Performed By: #### L 100.0100, L500.4050 ####[facility] [address] [place], [place], [address] Trough vancomycin levelOrder ed By: Buster Fuchs on 11-01-2024 Vancomycin trough [Mass/Vol] 17.7 ug/mL High 5.0-15.0 [facility] Vancomycin trough [Mass/Vol] Ordered By: Buster Fuchs on 11-01-2024 Trough vancomycin level 17.7 ug/mL High 5.0-15.0 [facility] Vancomycin, Trough Levelon 0 11-01-2024 VANCO, TROUGH 17.7 ug/mL High 5.0-15.0 [facility] Comment on above: Order Comment: Comme nts: Trough to be drawn 30 mins prior to scheduled [id number] Result Comment: Eleazar mmended goal trough ranges are generally 10-15 mcg/mlfor less severe/complicated infections such as cellulitisor UTI and 15-20 mcg/ml for more severe/complicatedinfections such as bacteremia/sepsis, osteomyelitis,pneumonia or meningitis. Goal trough ranges should takeinto account indication, patient-specific factors andorganism AUDIE.VANCOMYCIN STANDARED DRUG THERAPY TROUGH LEVEL: 5.0 - 15.0 mg/LVANCOMYCIN HIGH INTENSITY THERAPY TROUGH LEVEL: 15.0 - 20.0 mg/LHigh Intensity therapy recommended for serious lifethreatening infections include:- Zsiybpuzxv-Mjeswwjdkvcu-Hzfvdlpzv (Ventilator/Healtcare Associated)-SepsisPLEASE CONTACT PHARMACY SERVICES (#8960) FOR INTERPRETATIONOF RESULTS. Performed By: #### L 501.8886 ####[facility] [address] [place], [place], [address] Activated partial thrombopla stin time (aPTT) in platelet poor plasma by coagulation aOrdered By: Buster Fuchs on 10-31-2024 aPTT Coag (PPP) [Time] 42.7 s High 24.1-36.2 [facility] Bedside Glucoseon 10-31-2024 FINGERSTICK GLU 185 mg/dL High 74-106 [facility] Comment on above: Result Comment: BRISA GEMENT OF PATIENT CARE PER NURSING PROTOCOL Performed By: #### L 501.080 ####[facility] [address] [place], [address] FINGERSTICK GLU 175 mg/dL High -106 [facility] Comment on above: Result Comment: BRISA GEMENT OF PATIENT CARE PER NURSING PROTOCOL Performed By: #### L 501.080 ####[facility] [address] [place], [address] FINGERSTICK GLU 189 mg/dL High -106 [facility] Comment on above: Result Comment: BRISA GEMENT OF PATIENT CARE PER NURSING PROTOCOL Performed By: #### L 501.080 ####[facility] [address] [place], [address] FINGERSTICK GLU 184 mg/dL High [address] [place] [address] Comment on above: Result Comment: BRISA GEMENT OF PATIENT CARE PER NURSING PROTOCOL Performed By: #### L 501.080 ####[facility] [address] [place], [address] CBC W/Diff, Automatedon 10-04 Anisocytosis Ql (Bld) 1+ Normal [facility] Comment on above: Performed By: #### L 500.4050, L100.0100 ####[facility] [address] [place], [address] Comprehensive Metabolic Prof ilon 10-31-2024 Albumin [Mass/Vol] 2.5 g/dL Low 3.5-5.0 [facility] Comment on above: Performed By: #### L 500.4050, L100.0100 ####[facility] [address] [place], [address] Albumin/Globulin [Mass ratio] 0.8 {ratio} Low 0.9-2.4 [facility] Comment on above: Performed By: #### L 500.4050, L100.0100 ####[facility] [address] [place], [address] ALK PHOS 243 U/L High 40-129 [facility] Comment on above: Performed By: #### L 500.4050, L100.0100 ####[facility] [address] [place], [address] ALT [Catalytic activity/Vol] 20 U/L Normal <=46 [facility] Comment on above: Performed By: #### L 500.4050, L100.0100 ####[facility] [address] [place], [address] AST [Catalytic activity/Vol] 31 U/L Normal <=37 [facility] Comment on above: Performed By: #### L 500.4050, L100.0100 ####[facility] [address] [place], [address] Bilirubin [Mass/Vol] 2.18 mg/dL High 0.00-1.30 [facility] Comment on above: Performed By: #### L 500.4050, L100.0100 ####[facility] [address] [place], [address] BUN/CRE 21.7 RATIO High 10-20 [facility] Comment on above: Performed By: #### L 500.4050, L100.0100 ####[facility] [address] [place], [address] Calcium [Mass/Vol] 9.0 mg/dL Normal 7.6-11.0 [facility] Comment on above: Performed By: #### L 500.4050, L100.0100 ####[facility] [address] [place], [address] Chloride [Moles/Vol] 110 mmol/L High 98-108 [facility] Comment on above: Performed By: #### L 500.4050, L100.0100 ####[facility] [address] [place], [address] CO2 [Moles/Vol] 15.3 mmol/L Low 21.0-32.0 [facility] Comment on above: Performed By: #### L 500.4050, L100.0100 ####[facility] [address] [place], [address] Creatinine [Mass/Vol] 1.18 mg/dL Normal 0.70-1.20 [facility] Comment on above: Performed By: #### L 500.4050, L100.0100 ####[facility] [address] [place], [address] ECRCL 76.73 ml/min Normal 50-250 [facility] Comment on above: Performed By: #### L 500.4050, L100.0100 ####[facility] [address] [place], [address] GAP 11 Normal 5-15 [facility] Comment on above: Performed By: #### L 500.4050, L100.0100 ####[facility] [address] [place], [address] GFR/1.73 sq M.predicted among non-blacks MDRD (S/P/Bld) [Vol rate/Area] 72 mL/min/{1.73_m2} Normal >60 [facility] Comment on above: Result Comment: mL/m in/1.73m2 CKD-EPI Creatinine Equation (2020) Performed By: #### L 500.4050, L100.0100 ####[facility] [address] [place], [address] Globulin (S) [Mass/Vol] 3.0 g/dL Normal 2.2-4.2 [facility] Comment on above: Performed By: #### L 500.4050, L100.0100 ####[facility] [address] [place], [address] Glucose [Mass/Vol] 193 mg/dL High 70-99 [facility] Comment on above: Performed By: #### L 500.4050, L100.0100 ####[facility] [address] [place], [address] Potassium [Moles/Vol] 3.3 mmol/L Normal 3.3-5.1 [facility] Comment on above: Performed By: #### L 500.4050, L100.0100 ####[facility] [address] [place], [address] Sodium [Moles/Vol] 136 mmol/L Normal 133-145 [facility] Comment on above: Performed By: #### L 500.4050, L100.0100 ####[facility] [address] [place], [address] T PROT 5.6 g/dL Low 5.9-8.4 [facility] Comment on above: Performed By: #### L 500.4050, L100.0100 ####[facility] [address] [place], [address] Urea nitrogen [Mass/Vol] 26 mg/dL High 4-19 [facility] Comment on above: Performed By: #### L 500.4050, L100.0100 ####[facility] [address] [place], [address] Partial Thromboplast Timeon 10-31-2024 aPTT Coag (Bld) [Time] 42.7 s High 24.1-36.2 [facility] Comment on above: Performed By: #### L 300.4310, L300.3900 ####[facility] [address] [place], [address] Prothrombin Time w/INRon INR Coag (PPP) [Relative time] 2.5 {INR} Normal [facility] Comment on above: Performed By: #### L 300.4310, L300.3900 ####[facility] [address] [place], [address] PT Coag (PPP) [Time] 27.2 s High 11.7-14.9 [facility] Comment on above: Performed By: #### L 300.4310, L300.3900 ####[facility] [address] [place], [address] INR Normal [facility] Comment on above: Result Comment: SPEC IMEN WAS QNS Performed By: #### L 300.3900 ####[facility] [address] [place], [address] PROTIME Normal 11.7-14.9 [facility] Comment on above: Result Comment: SPEC IMEN WAS QNS Performed By: #### L 300.3900 ####[facility] [address] [place], [address] aPTT Coag (PPP) [Time]Ordere d By: Buster Fuchs on 10-31-2024 Activated partial thromboplastin time (aPTT) in platelet poor plasma by coagulation a 42.7 Seconds High 24.1-36.2 [facility] Abdomen Single View (Portabl e)on 10-30-2024 Abdomen Single View (Portable) Normal [facility] Ammoniaon 10-30-2024 Ammonia (P) [Moles/Vol] 130.0 umol/L High 16-60 [facility] Comment on above: Performed By: #### L 503.5510 ####[facility] [address] [place], [address] Basic Metabolic Profile (BMP )on 10-30-2024 BUN/CRE 20.6 RATIO High 10-20 [facility] Comment on above: Performed By: #### L 100.0100, L500.2500 ####[facility] [address] [place], [address] Calcium [Mass/Vol] 9.3 mg/dL Normal 7.6-11.0 [facility] Comment on above: Performed By: #### L 100.0100, L500.2500 ####[facility] [address] [place], [address] Chloride [Moles/Vol] 105 mmol/L Normal 98-108 [facility] Comment on above: Performed By: #### L 100.0100, L500.2500 ####[facility] [address] [place], [address] CO2 [Moles/Vol] 15.2 mmol/L Low 21.0-32.0 [facility] Comment on above: Performed By: #### L 100.0100, L500.2500 ####[facility] [address] [place], [address] Creatinine [Mass/Vol] 1.25 mg/dL High 0.70-1.20 [facility] Comment on above: Performed By: #### L 100.0100, L500.2500 ####[facility] [address] [place], [address] ECRCL 72.43 ml/min Normal 50-250 [facility] Comment on above: Performed By: #### L 100.0100, L500.2500 ####[facility] [address] [place], [address] GAP 12 Normal 5-15 [facility] Comment on above: Performed By: #### L 100.0100, L500.2500 ####[facility] [address] [place], [address] GFR/1.73 sq M.predicted among non-blacks MDRD (S/P/Bld) [Vol rate/Area] 67 mL/min/{1.73_m2} Normal >60 [facility] Comment on above: Result Comment: mL/m in/1.73m2 CKD-EPI Creatinine Equation (2020) Performed By: #### L 100.0100, L500.2500 ####[facility] [address] [place], [address] Glucose [Mass/Vol] 239 mg/dL High 70-99 [facility] Comment on above: Performed By: #### L 100.0100, L500.2500 ####[facility] [address] [place], [address] Potassium [Moles/Vol] 3.8 mmol/L Normal 3.3-5.1 [facility] Comment on above: Performed By: #### L 100.0100, L500.2500 ####[facility] [address] [place], [address] Sodium [Moles/Vol] 133 mmol/L Normal 133-145 [facility] Comment on above: Performed By: #### L 100.0100, L500.2500 ####[facility] [address] [place], [address] Urea nitrogen [Mass/Vol] 26 mg/dL High 4-19 [facility] Comment on above: Performed By: #### L 100.0100, L500.2500 ####[facility] [address] [place], [address] Bedside Glucoseon 10-30-2024 FINGERSTICK GLU 193 mg/dL High 74-106 [facility] Comment on above: Result Comment: BRISA GEMENT OF PATIENT CARE PER NURSING PROTOCOL Performed By: #### L 501.080 ####[facility] [address] [place], [address] FINGERSTICK GLU 194 mg/dL High 74-106 [facility] Comment on above: Result Comment: BRISA GEMENT OF PATIENT CARE PER NURSING PROTOCOL Performed By: #### L 501.080 ####[facility] [address] [place], [address] FINGERSTICK GLU 236 mg/dL High 74-106 [facility] Comment on above: Result Comment: BRISA GEMENT OF PATIENT CARE PER NURSING PROTOCOL Performed By: #### L 501.080 ####[facility] [address] [place], [address] C. difficile Ql (Stl)Ordered By: Hill Wright on 10-30-2024 Stool Clostridium difficile detection Toxigenic C. difficile Abnormal [facility] CBC W/Diff, Automatedon 10-03 WBC (Bld) [#/Vol] 31.7 10*3/uL Invalid Interpretation Code 4.4-11.0 [facility] Comment on above: Result Comment: CRIT ICAL VALUE CALLED TO [id number]/29/25 [id number] Vitaliy Moreira.RESULTS READ BACK BY SAME. Performed By: #### L 100.0100, L500.2500 ####[facility] [address] [place], [address] Absolute Lymph 1.35 X10 3/uL Normal 0.83-4.51 [facility] Comment on above: Performed By: #### L 100.0100, L500.2500 ####[facility] [address] [place], [address] Absolute Neut 27.2 X10 3/uL High 2.0-7.7 [facility] Comment on above: Performed By: #### L 100.0100, L500.2500 ####[facility] [address] [place], [address] Basophils/100 WBC (Bld) 0.5 % Normal 0-1 [facility] Comment on above: Performed By: #### L 100.0100, L500.2500 ####[facility] [address] [place], [address] Eosinophils/100 WBC (Bld) 0.5 % Normal 0-5 [facility] Comment on above: Performed By: #### L 100.0100, L500.2500 ####[facility] [address] [place], [address] Erythrocyte distribution width (RBC) [Ratio] 19.8 % High 11.6-14.6 [facility] Comment on above: Performed By: #### L 100.0100, L500.2500 ####[facility] [address] [place], [address] Hematocrit (Bld) [Volume fraction] 33.4 % Low 40-54 [facility] Comment on above: Performed By: #### L 100.0100, L500.2500 ####[facility] [address] [place], [address] Hemoglobin (Bld) [Mass/Vol] 11.5 g/dL Low 13.0-16.5 [facility] Comment on above: Performed By: #### L 100.0100, L500.2500 ####[facility] [address] [place], [address] IG% 1.800 High 0.0-0.9 [facility] Comment on above: Result Comment: IG% - Immature Granulocytes (promyelocytes, myelocytes andmetamyelocytes) > 1% indicates that a LEFT SHIFT is Present. Performed By: #### L 100.0100, L500.2500 ####[facility] [address] [place], [address] Lymphocytes/100 WBC (Bld) 4.3 % Low 19-41 [facility] Comment on above: Performed By: #### L 100.0100, L500.2500 ####[facility] [address] [place], [address] MCH (RBC) [Entitic mass] 31.6 pg Normal 27.0-32.0 [facility] Comment on above: Performed By: #### L 100.0100, L500.2500 ####[facility] [address] [place], [address] MCHC (RBC) [Mass/Vol] 34.4 g/dL Normal 32-36 [facility] Comment on above: Performed By: #### L 100.0100, L500.2500 ####[facility] [address] [place], [address] MCV (RBC) [Entitic vol] 91.8 fL Normal 80-94 [facility] Comment on above: Performed By: #### L 100.0100, L500.2500 ####[facility] [address] [place], [address] Monocytes/100 WBC (Bld) 7.3 % Normal 0-10 [facility] Comment on above: Performed By: #### L 100.0100, L500.2500 ####[facility] [address] [place], [address] Neutrophils/100 WBC (Bld) 85.6 % High 47-70 [facility] Comment on above: Performed By: #### L 100.0100, L500.2500 ####[facility] [address] [place], [address] Nucleated RBC (Bld) [#/Vol] 0 10*3/uL Normal 0-5 [facility] Comment on above: Performed By: #### L 100.0100, L500.2500 ####[facility] [address] [place], [address] Platelet mean volume (Bld) [Entitic vol] 11.6 fL Normal 6.2-12.0 [facility] Comment on above: Performed By: #### L 100.0100, L500.2500 ####[facility] [address] [place], [address] Platelets (Bld) [#/Vol] 121 10*3/uL Low 150-450 [facility] Comment on above: Performed By: #### L 100.0100, L500.2500 ####[facility] [address] [place], [address] RBC (Bld) [#/Vol] 3.64 10*6/uL Low 4.6-6.2 [facility] Comment on above: Performed By: #### L 100.0100, L500.2500 ####[facility] [address] [place], [address] RDW SD 64.5 fl High 35.1-43.9 [facility] Comment on above: Performed By: #### L 100.0100, L500.2500 ####[facility] [address] [place], [address] CDIFF (PCR)on 10-30-2024 CDIFF Normal [facility] Comment on above: Performed By: #### M 100.6795, M100.637, M100.6796, M100.0605 ####[facility] [address] [place], [address] Clostridium Diff Toxin/Agon 10-30-2024 CDIFF (EIA) Normal [facility] Comment on above: Performed By: #### M 100.6795, M100.637, M100.6796, M100.0605 ####[facility] [address] [place], [address] Clostridium difficile detect ion by polymerase chain reactionOrdered By: Hill Wright on 10-30-2024 C. difficile DNA ANANTH+probe Ql (Unsp spec) [facility] Consultation - Urologyon Consultation - Urology Normal [facility] ENTERIC PATHOGEN PANEL STOOL on 10-30-2024 EP PANEL Normal [facility] Comment on above: Performed By: #### M 100.6795, M100.637, M100.6796, M100.0605 ####[facility] [address] [place], [address] MR/CON.PCM.GIon 10-30-2024 MR/CON.PCM.GI Normal [facility] Partial Thromboplast Timeon 10-30-2024 aPTT Coag (Bld) [Time] 41.4 s High 24.1-36.2 [facility] Comment on above: Performed By: #### L 300.4310, L300.3900 ####[facility] [address] [place], [address] Prothrombin Time w/INRon INR Coag (PPP) [Relative time] 2.5 {INR} Normal [facility] Comment on above: Performed By: #### L 300.4310, L300.3900 ####[facility] [address] [place], [address] PT Coag (PPP) [Time] 27.1 s High 11.7-14.9 [facility] Comment on above: Performed By: #### L 300.4310, L300.3900 ####[facility] [address] [place], [address] Stool Clostridium difficile detectionOrdered By: Hill Wright on 10-30-2024 C. difficile Ql (Stl) Toxigenic C. difficile Abnormal [facility] Stool Lactoferrin/WBCon - WBCST Is the patient recei ving laxatives? N New/unexplained onset of 3 or more stools in past 24 hrs? Y Normal Reference Range = Negative Fecal WBC Lactoferrin A Positive: Fecal WBC Lactoferrin present A Normal [facility] Comment on above: Performed By: #### M 100.6795, M100.637, M100.6796, M100.0605 ####[facility] [address] [place], [place], [id number] Stool lactoferrin detection by immunoassayOrdered By: Hill Wright on 10-30-2024 Lactoferrin IA Ql (Stl) [facility] Urine Cultureon 10-30-2024 URC Culture exhibits no growth. Normal [facility] Comment on above: Performed By: #### M 100.7330 ####[facility] [address] [place], [place], [address] Vancomycin, Trough Levelon 0 10-30-2024 VANCO, TROUGH 20.5 ug/mL High 5.0-15.0 [facility] Comment on above: Order Comment: 1500 Result Comment: Eleazar mmended goal trough ranges are generally 10-15 mcg/mlfor less severe/complicated infections such as cellulitisor UTI and 15-20 mcg/ml for more severe/complicatedinfections such as bacteremia/sepsis, osteomyelitis,pneumonia or meningitis. Goal trough ranges should takeinto account indication, patient-specific factors andorganism AUDIE.VANCOMYCIN STANDARED DRUG THERAPY TROUGH LEVEL: 5.0 - 15.0 mg/LVANCOMYCIN HIGH INTENSITY THERAPY TROUGH LEVEL: 15.0 - 20.0 mg/LHigh Intensity therapy recommended for serious lifethreatening infections include:- Jlzkcyultg-Amiaicmlhpoj-Ebwwhgydb (Ventilator/Healtcare Associated)-SepsisPLEASE CONTACT PHARMACY SERVICES (#4486) FOR INTERPRETATIONOF RESULTS. Performed By: #### L 501.8820 ####[facility] [address] [place], [place], [address] Ammoniaon 10-29-2024 Ammonia (P) [Moles/Vol] 103.0 umol/L High 16-60 [facility] Comment on above: Performed By: #### L 503.5510 ####[facility] [address] [place], [address] Arterial patency Wrist arter y --pre arterial punctureOrdered By: Buster Fuchs on 10-29-2024 Assessment of wrist artery patency prior to arterial puncture Positive [facility] Assessment of wrist artery p atency prior to arterial punctureOrdered By: Buster Fuchs on 10-29-2024 Arterial patency Wrist artery --pre arterial puncture Positive [facility] Base excess Calc (BldV) [Mol es/Vol]Ordered By: Buster Fuchs on 10-29-2024 Blood base excess determination -10 mmol/L Low -2-2 [facility] Basic Metabolic Profile (BMP )on 10-29-2024 BUN/CRE 20.7 RATIO High 10-20 [facility] Comment on above: Performed By: #### L 500.2500, L100.0100 ####[facility] [address] [place], [address] Calcium [Mass/Vol] 9.1 mg/dL Normal 7.6-11.0 [facility] Comment on above: Performed By: #### L 500.2500, L100.0100 ####[facility] [address] [place], [address] Chloride [Moles/Vol] 105 mmol/L Normal 98-108 [facility] Comment on above: Performed By: #### L 500.2500, L100.0100 ####[facility] [address] [place], [address] CO2 [Moles/Vol] 17.0 mmol/L Low 21.0-32.0 [facility] Comment on above: Performed By: #### L 500.2500, L100.0100 ####[facility] [address] [place], [address] Creatinine [Mass/Vol] 1.08 mg/dL Normal 0.70-1.20 [facility] Comment on above: Performed By: #### L 500.2500, L100.0100 ####[facility] [address] [place], [address] ECRCL 82.91 ml/min Normal 50-250 [facility] Comment on above: Performed By: #### L 500.2500, L100.0100 ####[facility] [address] [place], [address] GAP 11 Normal 5-15 [facility] Comment on above: Performed By: #### L 500.2500, L100.0100 ####[facility] [address] [place], [address] GFR/1.73 sq M.predicted among non-blacks MDRD (S/P/Bld) [Vol rate/Area] 80 mL/min/{1.73_m2} Normal >60 [facility] Comment on above: Result Comment: mL/m in/1.73m2 CKD-EPI Creatinine Equation (2020) Performed By: #### L 500.2500, L100.0100 ####[facility] [address] [place], [address] Glucose [Mass/Vol] 214 mg/dL High 70-99 [facility] Comment on above: Performed By: #### L 500.2500, L100.0100 ####[facility] [address] [place], [address] Potassium [Moles/Vol] 3.3 mmol/L Normal 3.3-5.1 [facility] Comment on above: Performed By: #### L 500.2500, L100.0100 ####[facility] [address] [place], [address] Sodium [Moles/Vol] 132 mmol/L Low 133-145 [facility] Comment on above: Performed By: #### L 500.2500, L100.0100 ####[facility] [address] [place], [address] Urea nitrogen [Mass/Vol] 22 mg/dL High 4-19 [facility] Comment on above: Performed By: #### L 500.2500, L100.0100 ####[facility] [address] [place], [address] Bedside Glucoseon 10-29-2024 FINGERSTICK GLU 194 mg/dL High 74-106 [facility] Comment on above: Result Comment: BRISA GEMENT OF PATIENT CARE PER NURSING PROTOCOL Performed By: #### L 501.080 ####[facility] [address] [place], [address] FINGERSTICK GLU 191 mg/dL High 74-106 [facility] Comment on above: Result Comment: BRISA GEMENT OF PATIENT CARE PER NURSING PROTOCOL Performed By: #### L 501.080 ####[facility] [address] [place], [address] FINGERSTICK GLU 209 mg/dL High 74-106 [facility] Comment on above: Result Comment: BRISA GEMENT OF PATIENT CARE PER NURSING PROTOCOL Performed By: #### L 501.080 ####[facility] [address] [place], [address] FINGERSTICK GLU 166 mg/dL High 74-106 [facility] Comment on above: Result Comment: BRISA GEMENT OF PATIENT CARE PER NURSING PROTOCOL Performed By: #### L 501.080 ####[facility] [address] [place], [address] [address] [facility] 025 ALEXSANDER TEST Positive Normal [facility] Comment on above: Performed By: #### L 9000.0800 ####[facility] [address] [place], [address] Base excess Calc (Bld) [Moles/Vol] -10 mmol/L Low -2 to +2 [facility] Comment on above: Performed By: #### L 0.0800 ####[facility] [address] [place], [address] Blood Gas Type ART Normal [facility] Comment on above: Performed By: #### L 8999.08 ####[facility] [address] [place], [address] CO2 [Moles/Vol] 16 mmol/L Normal [facility] Comment on above: Performed By: #### L 8999.0800 ####[facility] [address] [place], [address] FI02 21.0 [facility] Comment on above: Performed By: #### L 0.08 ####[facility] [address] [place], [address] HCO3 (Bld) [Moles/Vol] 15.2 mmol/L Low 22-26 [facility] Comment on above: Performed By: #### L 8999.0800 ####[facility] [address] [place], [address] Mode Not entered [facility] Comment on above: Performed By: #### L 8999.0800 ####[facility] [address] [place], [address] O2 Delivery Dev Room Air Normal [facility] Comment on above: Performed By: #### L 8999.0800 ####[facility] [address] [place], [address] pCO2 25.1 mmHg Low 35-45 [facility] Comment on above: Performed By: #### L 0.0800 ####[facility] [address] [place], [address] pH (Bld) 7.39 [pH] Normal 7.35-7.45 [facility] Comment on above: Performed By: #### L 9000.0800 ####[facility] [address] [place], [address] PO2 67 mmHG Low 75-100 [facility] Comment on above: Performed By: #### L 9000.0800 ####[facility] [address] [place], [address] SITE L Radial Normal [facility] Comment on above: Performed By: #### L 0.0800 ####[facility] [address] [place], [address] SO2 93 Low 95-99 [facility] Comment on above: Performed By: #### L 0.0800 ####[facility] [address] [place], [address] Blood base excess determinat ionOrdered By: Buster Fuchs on 10-29-2024 Base excess Calc (BldV) [Moles/Vol] -10 mmol/L Low -2-2 [facility] Blood bicarbonate measuremen tOrdered By: Buster Fuchs on 10-29-2024 HCO3 (Bld) [Moles/Vol] 15.2 mmol/L Low 22-26 [facility] Blood bicarbonate measurement 15.2 mmol/L Low -26 [facility] Blood cultureOrdered By: Hugo Wright on 10-29-2024 Bacteria identified Cx Nom (Bld) No growth in 5 days. [facility] Blood culture No growth in 5 days. [facility] CBC W/Diff, Automatedon 03- POLYCHROMASIA 1+ Normal [facility] Comment on above: Performed By: #### L 500.2500, L100.0100 ####[facility] [address] [place], [address] Anisocytosis Ql (Bld) 1+ Normal [facility] Comment on above: Performed By: #### L 500.2500, L100.0100 ####[facility] [address] [place], [address] PLT EST MOD DEC Normal ADEQ [facility] Comment on above: Performed By: #### L 500.2500, L100.0100 ####[facility] [address] [place], [address] Calculated very low density lipoprotein (VLDL) cholesterol measurementOrdered By: Hill Wright on 10-29-2024 Calculated very low density lipoprotein (VLDL) cholesterol measurement 17 mg/dL 5-40 [facility] Calculated very low density lipoprotein (VLDL) cholesterol measurement 17 mg/dL 5-40 [facility] Cholesterol [Mass/Vol]Ordere d By: Hill Wright on 10-29-2024 Serum or plasma cholesterol measurement (mass/volume) 132 mg/dL <201 [facility] Cholesterol in HDL [Mass/Vol ]Ordered By: Hill Wright on 10-29-2024 Serum or plasma cholesterol in HDL measurement (mass/volume) 33 mg/dL Low >40 [facility] Consultation - Intensiviston 10-29-2024 Consultation - General Internist And Physician Leader Normal [facility] Consultation - Urologyon Consultation - Urology Normal [facility] Determination of fraction of inspired oxygenOrdered By: Buster Fuchs on 10-29-2024 Determination of fraction of inspired oxygen 21.0 [facility] Electrocardiogram reportOrde red By: Jeovanny Ramos on 10-29-2024 EKG study [facility] Other Phone: H AND P Exam - Hospitaliston 10-29-2024 H&P Exam - Hospitalist Normal [facility] Hemoglobin A1con 10-29-2024 HbA1c (Bld) [Mass fraction] 6.7 % Normal <=5.6 [facility] Comment on above: Performed By: #### L 501.9985 ####[facility] [address] [place], [address] Kidney and Bladderon 025 Kidney and Bladder Normal [facility] L509.6001on 10-29-2024 CORTISOL 10.20 ug/dL Normal 6.02-18.40 [facility] Comment on above: Performed By: #### L 509.6001 ####[facility] [address] [place], [address] LDL calc ser/plasOrdered By: Hill Wright on 10-29-2024 Cholesterol in LDL [Mass/Vol] 83 mg/dL Normal [facility] Comment on above: Result Comment: Bord hwimdd=561-912 mg/dL Higher Ynih=373 mg/dL or greater Performed By: #### L 500.4100 ####[facility] [address] [place], [address] Lipid Profileon 10-29-2024 CHOL:HDL 4.04 Normal [facility] Comment on above: Performed By: #### L 500.4100 ####[facility] [address] [place], [address] Cholesterol in VLDL [Mass/Vol] 17 mg/dL Normal 5-40 [facility] Comment on above: Performed By: #### L 500.4100 ####[facility] [address] [place], [address] Triglyceride [Mass/Vol] 83 mg/dL Normal [facility] Comment on above: Result Comment: The drugs N-Acetylcysteine and Metamizole may falselydepress this assay.Normal range: <150 mg/dLBorderline High: 150-199 mg/dLHigh: 200-499 mg/dLVery High: >500 mg/dL Performed By: #### L 500.4100 ####[facility] [address] [place], [address] Measurement, pHOrdered By: Ney Fuchs on 10-29-2024 pH (Unsp spec) 7.39 [pH] 7.35-7.45 [facility] No Panel InformationOrdered By: Buster Fuchs on 10-29-2024 ART [facility] L Radial [facility] Not entered [facility] Room Air [facility] No Panel InformationOrdered By: Hill Wright on 10-29-2024 10.20 ug/dL 6.02-18.40 [facility] Osmolality, Serumon 10-30-19 25 OSMOLALITY,SER 292 mOsm/KG Normal 275-295 [facility] Comment on above: Performed By: #### L 501.7300 ####[facility] [address] [facility] [place], [place], [address] Osmolality, Urineon 10-30-19 25 OSMOLALITY,UR 484 mOsm/KG Normal [facility] Comment on above: Result Comment: Norm al Urine Reference Ranges Random: 50 - 1200 mOsm/kg H20 depending on fluid intake Random: >850 mOsm/kg after 12 hour fluid restriction 24 hour: 300 - 900 mOsm/kg H2O Performed By: #### L 501.7400 ####[facility] [address] [facility] [place], [place], [address] Osmolality, serumOrdered By: Hill Wright on 10-29-2024 Osmolality, serum 292 mOsm/KG 275-295 [facility] Oxygen saturation measuremen tOrdered By: Buster Fuchs on 10-29-2024 Oxygen saturation measurement 93 % Low 95-99 [facility] Partial pressure of carbon d ioxide measurementOrdered By: Buster Fuchs on 10-29-2024 Partial pressure of carbon dioxide measurement 25.1 mmHg Low 35-45 [facility] Partial pressure of oxygen m easurementOrdered By: Buster Fuchs on 10-29-2024 Partial pressure of oxygen measurement 67 mmHG Low 75-100 [facility] Screening total cholesterol/ high density lipoprotein (HDL) cholesterol ratioOrdered By: Hill Wright on 10-29-2024 Screening total cholesterol/high density lipoprotein (HDL) cholesterol ratio 4.04 [facility] Serum or plasma cholesterol in HDL measurement (mass/volume)Ordered By: Hill Wright on 10-29-2024 Cholesterol in HDL [Mass/Vol] 33 mg/dL Low [facility] Comment on above: Result Comment: Nereyda onal Cholesterol Education Program (NCEP) guidelines:<40 mg/dL: Low HDL-cholesterol (major risk factor for CHD)>= 60 mg/dL: High HDL-cholesterol (negative risk factor forCHD)HDL-cholesterol is affected by a number of factors, e.g.smoking, exercise, hormones, sex and age. Performed By: #### L 500.4100 ####[facility] [address] [place], [address] Serum or plasma cholesterol measurement (mass/volume)Ordered By: Hill Wright on 10-29-2024 Cholesterol [Mass/Vol] 132 mg/dL Normal <=200 [facility] Comment on above: Result Comment: Chol esterol level, Desirable <200 mg/dLBorderline high cholesterol 200-239 mg/dLHigh cholesterol >=240 mg/dLRecommendations of the NCEP Adult Treatment Panel for thefollowing risk-cutoff thresholds for the [place] Americanarizona spine and joint hospitalulation. Performed By: #### L 500.4100 ####[facility] [address] [place], [place], [address] Total carbon dioxide measure mentOrdered By: Buster Fuchs on 10-29-2024 CO2 [Moles/Vol] 16 mmol/L [facility] Total carbon dioxide measurement 16 mmol/L [facility] Triglycerides measurementOrd ered By: Hill Wright on 10-29-2024 Triglycerides measurement 83 mg/dL [facility] Urine cultureOrdered By: Viraj Dunn on 10-29-2024 Bacteria identified Cx Nom (U) Culture exhibits no growth. [facility] Urine culture Culture exhibits no growth. [facility] pH (Unsp spec)Ordered By: Marianna Fuchs on 10-29-2024 Measurement, pH 7.39 7.35-7.45 [facility] 12 Lead EKGon 10-28-2024 12 Lead EKG Normal [facility] Abdomen/Pelvis W IV Cont ONL Yon 10-28-2024 Abdomen/Pelvis W IV Cont ONLY Normal [facility] Absolute neutrophil countOrd ered By: Alber Dunn on 10-28-2024 Neutrophils (Bld) [#/Vol] 19.0 10*3/uL High 2.0-7.7 [facility] Amorphous sediment LM Ql (Ur ine sed)Ordered By: Alber Dunn on 10-28-2024 Amorphous sediment detection in urine sediment by light microscopy 1+ URATE [facility] Amorphous sediment detection in urine sediment by light microscopyOrdered By: Alber Dunn on 10-28-2024 Amorphous sediment LM Ql (Urine sed) 1+ URATE [facility] Anion gap in Serum or Plasma Ordered By: Alber Dunn on 10-28-2024 Anion gap [Moles/Vol] 17 mmol/L High 5-15 [facility] BUN/creatinine ratioOrdered By: Alber Dunn on 10-28-2024 Urea nitrogen/Creatinine [Mass ratio] 18.8 mg/mg 10-20 [facility] Basophil percentageOrdered B y: Alber Dunn on 10-28-2024 Basophils/100 WBC (Bld) 0.2 % 0-1 [facility] Bilirubin Test strip Ql (U)O rdered By: Alber Dunn on 10-28-2024 Bilirubin Ql (U) 1 mg/dL High Negative [facility] Comment on above: COLOR OF URINE MAY A FFECT DIPSTICK RESULTS. Bilirubin, totalOrdered By: Alber Dunn on 10-28-2024 Bilirubin [Mass/Vol] 1.86 mg/dL High 0.00-1.30 [facility] Carbon dioxide, total [Moles /volume] in Central venous bloodOrdered By: Alber Dunn on 10-28-2024 CO2 [Moles/Vol] 12.4 mmol/L Low 21.0-32.0 [facility] Chloride assayOrdered By: Hernesto Dunn on 10-28-2024 Chloride [Moles/Vol] 98 mmol/L 98-108 [facility] Comprehensive Metabolic Prof ilon 10-28-2024 Albumin [Mass/Vol] 2.5 g/dL Low 3.5-5.0 [facility] Comment on above: Performed By: #### L 500.1560, L100.0100, L501.2190 ####[facility] [address] [place], [place], [id number] Albumin/Globulin [Mass ratio] 0.7 {ratio} Low 0.9-2.4 [facility] Comment on above: Performed By: #### L 500.4050, L100.0100, L501.2450 ####[facility] [address] [place], [address] ALK PHOS 274 U/L High 40-129 [facility] Comment on above: Performed By: #### L 500.4050, L100.0100, L501.2450 ####[facility] [address] [place], [address] ALT [Catalytic activity/Vol] 23 U/L Normal <=46 [facility] Comment on above: Performed By: #### L 500.4050, L100.0100, L501.2450 ####[facility] [address] [place], [address] AST [Catalytic activity/Vol] 48 U/L High <=37 [facility] Comment on above: Result Comment: Hemo lysis present, Results??could be affected.?? Performed By: #### L 500.4050, L100.0100, L501.2450 ####[facility] [address] [place], [address] Bilirubin [Mass/Vol] 1.86 mg/dL High 0.00-1.30 [facility] Comment on above: Performed By: #### L 500.4050, L100.0100, L501.2450 ####[facility] [address] [place], [address] BUN/CRE 18.8 RATIO Normal 10-20 [facility] Comment on above: Performed By: #### L 500.4050, L100.0100, L501.2450 ####[facility] [address] [place], [address] Calcium [Mass/Vol] 9.2 mg/dL Normal 7.6-11.0 [facility] Comment on above: Performed By: #### L 500.4050, L100.0100, L501.2450 ####[facility] [address] [place], [address] Chloride [Moles/Vol] 98 mmol/L Normal 98-108 [facility] Comment on above: Performed By: #### L 500.4050, L100.0100, L501.2450 ####[facility] [address] [place], [address] CO2 [Moles/Vol] 12.4 mmol/L Low 21.0-32.0 [facility] Comment on above: Performed By: #### L 500.4050, L100.0100, L501.2450 ####[facility] [address] [place], [address] Creatinine [Mass/Vol] 1.33 mg/dL High 0.70-1.20 [facility] Comment on above: Performed By: #### L 500.4050, L100.0100, L501.2450 ####[facility] [address] [place], [address] GAP 17 High 5-15 [facility] Comment on above: Performed By: #### L 500.4050, L100.0100, L501.2450 ####[facility] [address] [place], [address] GFR/1.73 sq M.predicted among non-blacks MDRD (S/P/Bld) [Vol rate/Area] 62 mL/min/{1.73_m2} Normal >60 [facility] Comment on above: Result Comment: mL/m in/1.73m2 CKD-EPI Creatinine Equation (2020) Performed By: #### L 500.4050, L100.0100, L501.2450 ####[facility] [address] [place], [address] Globulin (S) [Mass/Vol] 3.4 g/dL Normal 2.2-4.2 [facility] Comment on above: Performed By: #### L 500.4050, L100.0100, L501.2450 ####[facility] [address] [place], [address] Glucose [Mass/Vol] 338 mg/dL High 70-99 [facility] Comment on above: Performed By: #### L 500.4050, L100.0100, L501.2450 ####[facility] [address] [place], [address] Potassium [Moles/Vol] 4.5 mmol/L Normal 3.3-5.1 [facility] Comment on above: Result Comment: Hemo lysis present, Results??could be affected.?? Performed By: #### L 500.4050, L100.0100, L501.2450 ####[facility] [address] [place], [address] Sodium [Moles/Vol] 128 mmol/L Low 133-145 [facility] Comment on above: Performed By: #### L 500.4050, L100.0100, L501.2450 ####[facility] [address] [place], [address] T PROT 5.9 g/dL Normal 5.9-8.4 [facility] Comment on above: Performed By: #### L 500.4050, L100.0100, L501.2450 ####[facility] [address] [place], [address] Urea nitrogen [Mass/Vol] 25 mg/dL High 4-19 [facility] Comment on above: Performed By: #### L 500.4050, L100.0100, L501.2450 ####[facility] [address] [place], [address] Emergency Department Summary on 10-28-2024 Emergency Department Summary Normal [facility] Eosinophil percentageOrdered By: Alber Dunn on 10-28-2024 Eosinophils/100 WBC (Bld) 1.4 % 0-5 [facility] Epithelial cells.squamous LM Ql (Urine sed)Ordered By: Alber Dunn on 10-28-2024 Epithelial cells.squamous LM.HPF (Urine sed) [#/Area] 5 /[HPF] 0-5 [facility] Erythrocyte distribution wid th ratioOrdered By: Abler Dunn on 10-28-2024 Erythrocyte distribution width (RBC) [Ratio] 19.1 % High 11.6-14.6 [facility] Erythrocyte distribution wid th standard deviationOrdered By: Alber Dunn on 10-28-2024 Erythrocyte distribution width (RBC) [Entitic vol] 62.7 fL High 35.1-43.9 [facility] GFR/1.73 sq M.predicted niki g non-blacks MDRD (S/P/Bld) [Vol rate/Area]Ordered By: Alber Dunn on 10-28-2024 Estimated GFR (MDRD) Non-Af Amer 62 >60 [facility] Comment on above: mL/min/1.73m2 CKD-EP I Creatinine Equation (2020) Glucose Ql (U)Ordered By: Hernesto Dunn on 10-28-2024 Glucose (U) [Mass/Vol] 50 mg/dL High Normal [facility] HbA1c (Bld) [Mass fraction]O rdered By: Hill Wright on 10-28-2024 Hemoglobin A1c percentage 6.7 % >5.7 [facility] Hematocrit Auto (Bld) [Volum e fraction]Ordered By: Alber Dunn on 10-28-2024 Hematocrit (Bld) [Volume fraction] 37.3 % Low 40-54 [facility] Hemoglobin A1c percentageOrd ered By: Hill Wright on 10-28-2024 HbA1c (Bld) [Mass fraction] 6.7 % >5.7 [facility] Hemoglobin measurementOrdere d By: Alber Dunn on 10-28-2024 Hemoglobin (Bld) [Mass/Vol] 12.7 g/dL Low 13.0-16.5 [facility] Immature granulocytes/100 WB C Auto (Bld)Ordered By: Alber Dunn on 10-28-2024 Immature granulocytes/100 WBC (Bld) 1.400 % High 0.0-0.9 [facility] Comment on above: IG% - Immature Granu locytes (promyelocytes, myelocytes and metamyelocytes) > 1% indicates that a LEFT SHIFT is Present. Ketones Test strip Ql (U)Ord ered By: Alber Dunn on 10-28-2024 Ketones Ql (U) 5 mg/dl High Negative [facility] Laboratory - Chemistry and C hemistry - challengeOrdered By: Alber Dunn on 10-28-2024 AST [Catalytic activity/Vol] 48 U/L High <38 [facility] Comment on above: Hemolysis present, R esults could be affected. Laboratory - Hematology and Cell countsOrdered By: Alber Dunn on 10-28-2024 Anisocytosis Ql (Bld) RARE [facility] Lactic Acidon 10-28-2024 Lactate [Moles/Vol] 4.0 mmol/L Invalid Interpretation Code 0.0-2.0 [facility] Comment on above: Order Comment: Y Result Comment: Crit ical Result(s) Called LSPARR at: 2024 by:LAURIE??Results read back by same.Critical Result(s) Called at: by:??Results read back bysame. AMENDED REPORT 10/28/242041 LACTIC ACID previously reported as: 4.0 *H mmol/LCritical Result(s) Called LSPARR at: 2024 by:LAURIE??Results read back by same. Performed By: #### L 503.6005 ####[facility] [address] [place], [place], [id number] Lactic acid measurementOrder ed By: Alber Dunn on 10-28-2024 Lactate [Moles/Vol] 4.0 mmol/L High 0.0-2.0 [facility] Comment on above: Critical Result(s) C alled LSPARR at: 2024 by: LAURIE Results read back by same. Critical Result(s) Called at: by: Results read back by same.Previous reported result: 4.0 mmol/LEdited by: AUTOINS on 10/28/24:2041 AMENDED REPORT 10/28/242041 LACTIC ACID previously reported as: 4.0 *H mmol/L Critical Result(s) Called LSPARR at: 2024 by: LAURIE Results read back by same. Lipaseon 10-28-2024 Lipase [Catalytic activity/Vol] 45 U/L Normal 13-75 [facility] Comment on above: Result Comment: Siddhartha bhat note:LIPASE revised reference range effective 22.New Lipase methodology. Expected to produce lower valuesthan the previous assay method.NEW Reference Range: 13 - 75 U/L Performed By: #### L 500.4050, L100.0100, L501.2450 ####[facility] [address] [place], [place], [id number] Lipase measurementOrdered By : Alber Dunn on 10-28-2024 Lipase [Catalytic activity/Vol] 45 U/L 13-75 [facility] Comment on above: Please note:LIPASE r evised reference range effective 22. New Lipase methodology. Expected to produce lower values than the previous assay method. NEW Reference Range: 13 - 75 U/L Lymphocytes Auto (Unsp spec) [#/Vol]Ordered By: Alber Dunn on 10-28-2024 Lymphocytes (Bld) [#/Vol] 1.28 10*3/uL 0.83-4.51 [facility] Lymphocytes/100 WBC Auto (Un sp spec)Ordered By: Alber Dunn on 10-28-2024 Lymphocytes/100 WBC (Bld) 5.6 % Low 19-41 [facility] MCV (mean corpuscular volume ) determinationOrdered By: Alber Dunn on 10-28-2024 MCV (RBC) [Entitic vol] 91.2 fL 80-94 [facility] Macrocytes Ql (Bld)Ordered B y: Alber Dunn on 10-28-2024 Macrocytosis RARE [facility] Macrocytes detection RARE [facility] Macrocytes detectionOrdered By: Alber Dunn on 10-28-2024 Macrocytes Ql (Bld) RARE [facility] Manual differential comment Marco Antonio (Bld) [Interp]Ordered By: Alber Dunn on 10-28-2024 Differential Comment SEE COMMENT [facility] Comment on above: MONOCYTOSIS NOTED Mean corpuscular hemoglobin (MCH) determinationOrdered By: Alber Dunn on 10-28-2024 MCH (RBC) [Entitic mass] 31.1 pg 27.0-32.0 [facility] Mean corpuscular hemoglobin concentration (MCHC) determinationOrdered By: Alber Dunn on 10-28-2024 MCHC (RBC) [Mass/Vol] 34.0 g/dL 32-36 [facility] Mean platelet volume determi nationOrdered By: Alber Dunn on 10-28-2024 Platelet mean volume (Bld) [Entitic vol] 12.0 fL 6.2-12.0 [facility] Microscopic analysis of urin e for red blood cells (RBC)Ordered By: Alber Dunn on 10-28-2024 Urine RBC > 100 SEEN /hpf 0-5 [facility] Monocyte percentageOrdered B y: Alber Dunn on 10-28-2024 Monocytes/100 WBC (Bld) 8.4 % 0-10 [facility] Mucus LM Ql (Urine sed)Order ed By: Alber Dunn on 10-28-2024 Mucus Ql (Urine sed) 0 SEEN /hpf [facility] Neutrophil percentageOrdered By: Alber Dunn on 10-28-2024 Neutrophils/100 WBC (Bld) 83.0 % High 47-70 [facility] Nitrite Test strip Ql (U)Ord ered By: Alber Dunn on 10-28-2024 Nitrite Ql (U) Negative Negative [facility] Nucleated red blood cell per centageOrdered By: Alber Dunn on 10-28-2024 Nucleated RBC/100 WBC (Bld) [Ratio] 0 % 0-5 [facility] Osmolality (U) [Osmolality]O rdered By: Hill Wright on 10-28-2024 Osmolality ur 484 mOsm/KG >50 [facility] Osmolality urOrdered By: Hugo Wright on 10-28-2024 Osmolality (U) [Osmolality] 484 mOsm/KG >50 [facility] Ovalocytes LM Ql (Bld)Ordere d By: Alber Dunn on 10-28-2024 Ovalocytes RARE [facility] Pathologist review Marco Antonio (Unsp spec) [Interp]Ordered By: Alber Dunn on 10-28-2024 Differential Pathologist's Review May foll [facility] Platelet countOrdered By: Hernesto Dunn on 10-28-2024 Platelets (Bld) [#/Vol] 142 10*3/uL Low 150-450 [facility] Platelets LM Ql (Bld)Ordered By: Alber Dunn on 10-28-2024 Platelet Estimate ADEQUATE ADEQ [facility] Potassium (Unsp spec) [Mass/ Vol]Ordered By: Alber Dunn on 10-28-2024 Potassium [Moles/Vol] 4.5 mmol/L 3.3-5.1 [facility] Comment on above: Hemolysis present, R esults could be affected. Protein Test strip Ql (U)Ord ered By: Alber Dunn on 10-28-2024 Protein Ql (U) 500 mg/dl High Negative [facility] RBC Auto (Bld) [#/Vol]Ordere d By: Alber Dunn on 10-28-2024 RBC (Bld) [#/Vol] 4.09 10*6/uL Low 4.6-6.2 [facility] RBC morphology finding Nom ( Bld)Ordered By: Alber Dunn on 10-28-2024 Red Blood Cell Morphology N CHROM NORMAL NORM C&C [facility] Serum creatinine measurement (mass/volume)Ordered By: Alber Dunn on 10-28-2024 Creatinine [Mass/Vol] 1.33 mg/dL High 0.70-1.20 [facility] Serum globulin measurementOr dered By: Alber Dunn on 10-28-2024 Globulin (S) [Mass/Vol] 3.4 g/dL 2.2-4.2 [facility] Serum glucose measurement (m ass/volume)Ordered By: Alber Dunn on 10-28-2024 Glucose [Mass/Vol] 338 mg/dL High 70-99 [facility] Serum or plasma alanine thomas otransferase (ALT) measurementOrdered By: Alber Dunn on 10-28-2024 ALT [Catalytic activity/Vol] 23 U/L <47 [facility] Serum or plasma albumin roosevelt urement (mass/volume)Ordered By: Alber Dunn on 10-28-2024 Albumin [Mass/Vol] 2.5 g/dL Low 3.5-5.0 [facility] Serum or plasma albumin/glob ulin mass ratioOrdered By: Alber Dunn on 10-28-2024 Albumin/Globulin [Mass ratio] 0.7 {ratio} Low 0.9-2.4 [facility] Serum or plasma alkaline kendrick sphatase measurementOrdered By: Alber Dunn on 10-28-2024 ALP [Catalytic activity/Vol] 274 U/L High 40-129 [facility] Serum or plasma calcium roosevelt urement (mass/volume)Ordered By: Alber Dunn on 10-28-2024 Calcium [Mass/Vol] 9.2 mg/dL 7.6-11.0 [facility] Serum or plasma urea nitroge n measurement (mass/volume)Ordered By: Alber Dunn on 10-28-2024 Urea nitrogen [Mass/Vol] 25 mg/dL High 4-19 [facility] Sodium levelOrdered By: Alber Dunn on 10-28-2024 Sodium [Moles/Vol] 128 mmol/L Low 133-145 [facility] Total proteinOrdered By: Viraj Dunn on 10-28-2024 Protein [Mass/Vol] 5.9 g/dL 5.9-8.4 [facility] Urinalysis, Completeon 10-28 AMORPHOUS 1+ URATE Normal [facility] Comment on above: Order Comment: COLOR OF URINE MAY AFFECT DIPSTICK RESULTS.SENIOR PRODUCT INTEGRITY ENGINEER TO SPECIFY Performed By: #### L 400.0001 ####[facility] [address] [place] [address] BACTERIA 1+ /hpf Normal None Seen [facility] Comment on above: Order Comment: COLOR OF URINE MAY AFFECT DIPSTICK RESULTS.SENIOR PRODUCT INTEGRITY ENGINEER TO SPECIFY Performed By: #### L 400.0001 ####[facility] [address] [place], [address] EPI,SQUAMOUS 5-10 SEEN Normal 0-5 [facility] Comment on above: Order Comment: COLOR OF URINE MAY AFFECT DIPSTICK RESULTS.SENIOR PRODUCT INTEGRITY ENGINEER TO SPECIFY Performed By: #### L 400.0001 ####[facility] [address] [place], [address] RBC > 100 SEEN Normal 0-5 [facility] [facility] Comment on above: Order Comment: COLOR OF URINE MAY AFFECT DIPSTICK RESULTS.SENIOR PRODUCT INTEGRITY ENGINEER TO SPECIFY Performed By: #### L 400.0001 ####[facility] [id number] [place], [address] WBC >100 SEEN Normal 0-5 [facility] Comment on above: Order Comment: COLOR OF URINE MAY AFFECT DIPSTICK RESULTS.SENIOR PRODUCT INTEGRITY ENGINEER TO SPECIFY Performed By: #### L 400.0001 ####[facility] [address] [place], [address] Mucus Ql (Urine sed) 0 SEEN Normal [facility] Comment on above: Order Comment: COLOR OF URINE MAY AFFECT DIPSTICK RESULTS.SENIOR PRODUCT INTEGRITY ENGINEER TO SPECIFY Performed By: #### L 400.0001 ####[facility] [address] [place], [address] Urine blood detectionOrdered By: Alber Dunn on 10-28-2024 Urine Occult Blood 250 /ul High Negative [facility] Urine clarityOrdered By: Viraj Dunn on 10-28-2024 Clarity (U) Cloudy Clear [facility] Urine color determinationOrd ered By: Alber Dunn on 10-28-2024 Color (U) Red Yellow [facility] Urine leukocyte esterase det ection by dipstickOrdered By: Alber Dunn on 10-28-2024 Leukocyte esterase Test strip Ql (U) 500 /ul High Negative [facility] Urine pHOrdered By: Alber grajeda on 10-28-2024 pH (U) 6.5 [pH] 5.0 - 8.0 [facility] Urine sediment bacteria coun t by microscopy (number/high power field)Ordered By: Alber Dunn on 10-28-2024 Bacteria LM.HPF (Urine sed) [#/Area] 1 /[HPF] None Seen [facility] Urine specific gravity measu rementOrdered By: Alber Dunn on 10-28-2024 Specific gravity (U) [Rel density] 1.015 1.002-1.030 [facility] Urobilinogen Ql (U)Ordered B y: Alber Dunn on 10-28-2024 Urine Urobilinogen Normal mg/dl Normal [facility] White blood cell (WBC) count Ordered By: Alber Dunn on 10-28-2024 WBC (Bld) [#/Vol] 22.9 10*3/uL High 4.4-11.0 [facility] White blood cell countOrdere d By: Alber Dunn on 10-28-2024 Urine WBC >100 SEEN /hpf 0-5 [facility] APTTon 10-04-2024 aPTT Coag (PPP) [Time] 40 s High Un [facility] Albuminon 10-04-2024 Albumin (Body fld) [Mass/Vol] <0.5 Normal Not established [facility] Comment on above: Order Comment: Venip uncture immediately after or during the administration of Metamizole may lead to falsely low results. Testing should be performed immediately prior to Metamizole dosing. Performed By: #### 2 524-7 #### MIREYA SHAH ([id number]) [facility] ([facility]) [address] [place] [address] Bacteria identifiedon 2024 Bacteria identified Cx Nom (Body fld) Test: Sterile Fluid Culture/Smear Specimen Source: Pleural Specimen Type: Fluid Specimen Date: 10/04/20241713 Result Date: 10/08/2024824 Result Status: Final result Resulting Lab: [facility] [address] [place] [address] CULTURE No growth aerobically and anaerobically STAIN (1+) Rare Polymorphonuclear leukocytes No organisms seen Normal [facility] Comment on above: Performed By: #### 2 524-7 #### MIREYA SHAH ([id number]) [facility] ([facility]) [address] [place] [address] Basic metabolic 2000 panelon 10-04-2024 Anion gap [Moles/Vol] 8 mmol/L Low 10 - 2 0 mmol/L [facility] Calcium [Mass/Vol] 8.1 mg/dL Low 8.6 - 10. 3 mg/dL [facility] Chloride [Moles/Vol] 109 mmol/L High 98 - 10 7 mmol/L [facility] CO2 [Moles/Vol] 24 mmol/L 21 - 32 mmol/L [facility] Creatinine [Mass/Vol] 0.73 mg/dL 0.50 - 1.30 mg/dL [facility] eGFR - PINF [facility] Comment on above: Calculations of patric mated GFR are performed using the 2020 CKD-EPI Study Refit equation without the race variable for the IDMS-Traceable creatinine methods. https://jasn.asnjournals.org/content/early/ASN.2020 904263 Glucose [Mass/Vol] 197 mg/dL High 74 - 99 mg/dL [facility] Potassium [Moles/Vol] 3.9 mmol/L 3.5 - 5.3 mmol/L [facility] Sodium [Moles/Vol] 137 mmol/L 136 - 145 mmol/L [facility] Urea nitrogen [Mass/Vol] 17 mg/dL 6 - 23 mg/dL [facility] Anion gap [Moles/Vol] 8 mmol/L Low 10-20 [facility] Comment on above: Performed By: #### 2 4321-2 #### MIREYA SHAH ([id number]) [facility] ([facility]) [address] [place] [address] Calcium [Mass/Vol] 8.1 mg/dL Low 8.6-10.3 [facility] Comment on above: Performed By: #### 2 4321-2 #### MIREYA SHAH ([id number]) [facility] ([facility]) [address] [place] [address] Chloride [Moles/Vol] 109 mmol/L High 98-107 [facility] Comment on above: Performed By: #### 2 4321-2 #### MIREYA SHHA ([id number]) [facility] ([facility]) [address] [place] [address] CO2 [Moles/Vol] 24 mmol/L Normal 21-32 [facility] Comment on above: Performed By: #### 2 4321-2 #### MIREYA SHAH ([id number]) [facility] ([facility]) [address] [place] [address] Creatinine [Mass/Vol] 0.73 mg/dL Normal 0.50-1.30 [facility] Comment on above: Performed By: #### 2 4321-2 #### MIREYA SHAH ([id number]) [facility] ([facility]) [address] [place] [address] GFR/1.73 sq M.predicted MDRD (S/P/Bld) [Vol rate/Area] mL/min/{1.73_m2} Normal >60 [facility] Comment on above: Result Comment: Calc ulations of estimated GFR are performed using the 2020 CKD-EPI Study Refit equation without the race variable for the IDMS-Traceable creatinine methods. https://jasn.asnjournals.org/content/early//ASN.2020 395601 Performed By: #### 2 4321-2 #### MIREYA SHAH ([id number]) [facility] ([facility]) [address] [place] [address] Glucose [Mass/Vol] 197 mg/dL High 74-99 [facility] Comment on above: Performed By: #### 2 4321-2 #### MIREYA SHAH ([id number]) [facility] ([facility]) [address] [place] [address] Potassium [Moles/Vol] 3.9 mmol/L Normal 3.5-5.3 [facility] Comment on above: Performed By: #### 2 4321-2 #### MIREYA SHAH ([id number]) [facility] ([facility]) [address] [place] [address] Sodium [Moles/Vol] 137 mmol/L Normal 136-145 [facility] Comment on above: Performed By: #### 2 4321-2 #### MIREYA SHAH ([id number]) [facility] ([facility]) [address] [place] [address] Urea nitrogen [Mass/Vol] 17 mg/dL Normal 6-23 [facility] Comment on above: Performed By: #### 2 4321-2 #### GOMES ALYSSA ([id number]) [facility] ([facility]) [address] [place] [address] CBC W Auto Differential pane l (Bld)on 10-04-2024 Basophils (Bld) [#/Vol] 0.02 10*3/uL [facility] Basophils/100 WBC (Bld) 0.4 % 0.0 - 2.0 % [facility] Eosinophils (Bld) [#/Vol] 0.15 10*3/uL [facility] Eosinophils/100 WBC (Bld) 2.7 % 0.0 - 6.0 % [facility] Erythrocyte distribution width (RBC) [Ratio] 22.1 % High 11.5 - 14.5 % [facility] Hematocrit (Bld) [Volume fraction] 29.8 % Low 41.0 - 52.0 % [facility] Hemoglobin (Bld) [Mass/Vol] 9.3 g/dL Low 13.5 - 17.5 g/dL [facility] Immature granulocytes (Bld) [#/Vol] 0.01 10*3/uL [facility] Immature granulocytes/100 WBC (Bld) 0.2 % 0.0 - 0.9 % [facility] Comment on above: Immature Granulocyte Count (IG) includes promyelocytes, myelocytes and metamyelocytes but does not include bands. Percent differential counts (%) should be interpreted in the context of the absolute cell counts (cells/UL). Interpretation and review of laboratory results Abnormal [facility] Lymphocytes (Bld) [#/Vol] 0.64 10*3/uL Low [facility] Lymphocytes/100 WBC (Bld) 11.5 % 13.0 - 44.0 % [facility] MCH (RBC) [Entitic mass] 30 pg 26.0 - 34.0 pg [facility] MCHC (RBC) [Mass/Vol] 31.2 g/dL Low 32.0 - 36.0 g/dL [facility] MCV (RBC) [Entitic vol] 96 fL 80 - 100 fL [facility] Monocytes (Bld) [#/Vol] 0.46 10*3/uL [facility] Monocytes/100 WBC (Bld) 8.3 % 2.0 - 10.0 % [facility] Neutrophils (Bld) [#/Vol] 4.28 10*3/uL [facility] Comment on above: Percent differential counts (%) should be interpreted in the context of the absolute cell counts (cells/uL). Neutrophils/100 WBC (Bld) 76.9 % 40.0 - 80.0 % [facility] Nucleated RBC/100 WBC (Bld) [Ratio] 0 % [facility] Platelets (Bld) [#/Vol] 65 10*3/uL Low U [facility] RBC (Bld) [#/Vol] 3.1 10*6/uL Low [facility] WBC (Bld) [#/Vol] 5.6 10*3/uL [facility] Basophils (Bld) [#/Vol] 0.02 x10*3/uL Normal 0.00-0.10 [facility] Comment on above: Performed By: #### 5 7021-8 #### MIREYA SHAH ([id number]) [facility] ([facility]) [address] [place] [address] Basophils/100 WBC (Bld) 0.4 % Normal 0.0-2.0 U [facility] Comment on above: Performed By: #### 5 7021-8 #### MIREYA SHAH ([id number]) [facility] ([facility]) [address] [place] [address] Eosinophils (Bld) [#/Vol] 0.15 x10*3/uL Normal 0.00-0.70 [facility] Comment on above: Performed By: #### 5 7021-8 #### MIREYA SHAH ([id number]) [facility] ([facility]) [address] [place] [address] Eosinophils/100 WBC (Bld) 2.7 % Normal 0.0-6.0 [facility] Comment on above: Performed By: #### 5 7021-8 #### MIREYA SHAH ([id number]) [facility] ([facility]) [address] [place] [address] Erythrocyte distribution width (RBC) [Ratio] 22.1 % High 11.5-14.5 [facility] Comment on above: Performed By: #### 5 7021-8 #### MIREYA SHAH ([id number]) [facility] ([facility]) [address] [place] [address] Hematocrit (Bld) [Volume fraction] 29.8 % Low 41.0-52.0 [facility] Comment on above: Performed By: #### 5 7021-8 #### MIREYA SHAH ([id number]) [facility] ([facility]) [address] [place] [address] Hemoglobin (Bld) [Mass/Vol] 9.3 g/dL Low 13.5-17.5 [facility] Comment on above: Performed By: #### 5 7021-8 #### MIREYA SHAH ([id number]) [facility] ([facility]) [address] [place] [address] Immature granulocytes (Bld) [#/Vol] 0.01 x10*3/uL Normal 0.00-0.70 [facility] Comment on above: Performed By: #### 5 7021-8 #### MIREYA SHAH ([id number]) [facility] ([facility]) [address] [place] [address] Immature granulocytes/100 WBC (Bld) 0.2 % Normal 0.0-0.9 [facility] Comment on above: Result Comment: Danielle ture Granulocyte Count (IG) includes promyelocytes, myelocytes and metamyelocytes but does not include bands. Percent differential counts (%) should be interpreted in the context of the absolute cell counts (cells/UL). Performed By: #### 5 7021-8 #### MIREYA SHAH ([id number]) [facility] ([facility]) [address] [place] [address] Lymphocytes (Bld) [#/Vol] 0.64 x10*3/uL Low 1.20-4.80 [facility] Comment on above: Performed By: #### 5 7021-8 #### MIREYA SHAH ([id number]) [facility] ([facility]) [address] [place] [address] Lymphocytes/100 WBC (Bld) 11.5 % Normal 13.0-44.0 [facility] Comment on above: Performed By: #### 5 7021-8 #### MIREYA SHAH ([id number]) [facility] ([facility]) [address] [place] [address] MCH (RBC) [Entitic mass] 30.0 pg Normal 26.0-34.0 [facility] Comment on above: Performed By: #### 5 7021-8 #### MIREYA SHAH ([id number]) [facility] ([facility]) [address] [place] [address] MCHC (RBC) [Mass/Vol] 31.2 g/dL Low 32.0-36.0 [facility] Comment on above: Performed By: #### 5 7021-8 #### MIREYA SHAH ([id number]) [facility] ([facility]) [address] [place] [address] MCV (RBC) [Entitic vol] 96 fL Normal 80-100 U [facility] Comment on above: Performed By: #### 5 7021-8 #### MIREYA SHAH ([id number]) [facility] ([facility]) [address] [place] [address] 89135 Monocytes (Bld) [#/Vol] 0.46 x10*3/uL Normal 0.10-1.00 [facility] Comment on above: Performed By: #### 5 7021-8 #### MIREYA SHAH ([id number]) [facility] ([facility]) [address] [place] [address] Monocytes/100 WBC (Bld) 8.3 % Normal 2.0-10.0 U [facility] Comment on above: Performed By: #### 5 7021-8 #### MIREYA SHAH ([id number]) [facility] ([facility]) [address] [place] [address] Neutrophils (Bld) [#/Vol] 4.28 x10*3/uL Normal 1.20-7.70 [facility] Comment on above: Result Comment: Perc ent differential counts (%) should be interpreted in the context of the absolute cell counts (cells/uL). Performed By: #### 5 7021-8 #### MIREYA SHAH ([id number]) [facility] ([facility]) [address] [place] [address] 08636 Neutrophils/100 WBC (Bld) 76.9 % Normal 40.0-80.0 [facility] Comment on above: Performed By: #### 5 7021-8 #### MIREYA SHAH ([id number]) [facility] ([facility]) [address] [place] [address] Nucleated RBC/100 WBC (Bld) [Ratio] 0.0 /100 WBCs Normal 0.0-0.0 [facility] Comment on above: Performed By: #### 5 7021-8 #### MIREYA SHAH ([id number]) [facility] ([facility]) [address] [place] [address]14[address] Platelets (Bld) [#/Vol] 65 x10*3/uL Low 150-450 [facility] Comment on above: Performed By: #### 5 7021-8 #### MIREYA SHAH ([id number]) [facility] ([facility]) [address] [place] [address]9944 RBC (Bld) [#/Vol] 3.10 x10*6/uL Low 4.50-5.90 [facility] Comment on above: Performed By: #### 5 7021-8 #### MIREYA SHAH ([id number]) [facility] ([facility]) [address] [place] [address]698 WBC (Bld) [#/Vol] 5.6 x10*3/uL Normal 4.4-11.3 [facility] Comment on above: Performed By: #### 5 7021-8 #### MIREYA SHAH ([id number]) [facility] ([facility]) [address] [place] [address] CT ABDOMEN PELVIS W IV CONTR [place] 10-04-2024 CT ABDOMEN PELVIS W IV CONTRAST Interpreted By: Yohana Huang, STUDY: CT ABDOMEN PELVIS W IV CONTRAST; 10/04/2024 2:16 pm INDICATION: Signs/Symptoms:generaliz ed abdominal pain, hx of cirrhosis, recent paracentesis. COMPARISON: None. ACCESSION NUMBER(S): [id number] ORDERING CLINICIAN: SRIRAM OLEARY TECHNIQUE: CT of the abdomen and pelvis was performed following the intravenous administration 6 9 mL Omnipaque 350. Sagittal and coronal reconstructions were generated. FINDINGS: LOWER CHEST: There are coronary artery calcifications. There is extensive anasarca of the left chest wall. There is a small amount of left pleural fluid or thickening. ABDOMEN: LIVER: The liver is irregular in outline consistent with cirrhosis. BILE DUCTS: Unremarkable GALLBLADDER: There are numerous small stones in a nondistended gallbladder. PANCREAS: Are unremarkable SPLEEN: The spleen appears enlarged measuring 19 centimeters in AP diameter. ADRENAL GLANDS: There are no obvious adrenal masses. KIDNEYS AND URETERS: There is a double-J stent on the left. There appear to be numerous large stones in the left kidney. Next The right kidney is unremarkable. PELVIS: BLADDER: Unremarkable REPRODUCTIVE ORGANS: The prostate is visualized. BOWEL: There is no significant bowel distention. VESSELS: There are atherosclerotic changes of the aorta. The cava is unremarkable. There are numerous collateral vessels in the abdomen. PERITONEUM/RETROPERITONE UM/LYMPH NODES: There is a marked amount of ascites. There is ascitic fluid in ventral hernia. There is fluid in the left inguinal hernia. There is no obvious free air. There is no obvious lymphadenopathy. BONES AND ABDOMINAL WALL: There is extensive anasarca. There is thickening of the skin. The patient is markedly scoliotic. There are multiple compression fractures. They do not appear acute. COMPARISON OF FINDINGS: IMPRESSION: Coronary artery calcifications. Anasarca. Ascites. Small irregular liver consistent with cirrhosis. Extensive collateral vessels. Enlarged spleen. Ventral and inguinal hernias containing ascitic fluid. MACRO: none Signed by: Yohana Huang 10/04/2024 2:28 PM Dictation workstation: [id number] [facility] CT Abdomen and Pelvis W cont rast Jamari 10-04-2024 Coronary artery calcifications. Anasarca. Ascites. Small irregular liver consistent with cirrhosis. Extensive collateral vessels. Enlarged spleen. Ventral and inguinal hernias containing ascitic fluid. MACRO: none Signed by: Yohana Huang 10/04/2024 2:28 PM Dictation workstation: [id number] MMODAL Interpreted By: Yohana Chen, STUDY: CT ABDOMEN PELVIS W IV CONTRAST; 10/04/2024 2:16 pm INDICATION: Signs/Symptoms:generaliz ed abdominal pain, hx of cirrhosis, recent paracentesis. COMPARISON: None. ACCESSION NUMBER(S): [id number] ORDERING CLINICIAN: SRIRAM OLEARY TECHNIQUE: CT of the abdomen and pelvis was performed following the intravenous administration 6 9 mL Omnipaque 350. Sagittal and coronal reconstructions were generated. FINDINGS: LOWER CHEST: There are coronary artery calcifications. There is extensive anasarca of the left chest wall. There is a small amount of left pleural fluid or thickening. ABDOMEN: LIVER: The liver is irregular in outline consistent with cirrhosis. BILE DUCTS: Unremarkable GALLBLADDER: There are numerous small stones in a nondistended gallbladder. PANCREAS: Are unremarkable SPLEEN: The spleen appears enlarged measuring 19 centimeters in AP diameter. ADRENAL GLANDS: There are no obvious adrenal masses. KIDNEYS AND URETERS: There is a double-J stent on the left. There appear to be numerous large stones in the left kidney. Next The right kidney is unremarkable. PELVIS: BLADDER: Unremarkable REPRODUCTIVE ORGANS: The prostate is visualized. BOWEL: There is no significant bowel distention. VESSELS: There are atherosclerotic changes of the aorta. The cava is unremarkable. There are numerous collateral vessels in the abdomen. PERITONEUM/RETROPERITONE UM/LYMPH NODES: There is a marked amount of ascites. There is ascitic fluid in ventral hernia. There is fluid in the left inguinal hernia. There is no obvious free air. There is no obvious lymphadenopathy. BONES AND ABDOMINAL WALL: There is extensive anasarca. There is thickening of the skin. The patient is markedly scoliotic. There are multiple compression fractures. They do not appear acute. COMPARISON OF FINDINGS: MMODAL Yohana Huang MD - 10/04/2024 Interpreted By: Yohana Huang, STUDY: CT ABDOMEN PELVIS W IV CONTRAST; 10/04/2024 2:16 pm INDICATION: Signs/Symptoms:generaliz ed abdominal pain, hx of cirrhosis, recent paracentesis. COMPARISON: None. ACCESSION NUMBER(S): [id number] ORDERING CLINICIAN: SRIRAM OLEARY TECHNIQUE: CT of the abdomen and pelvis was performed following the intravenous administration 6 9 mL Omnipaque 350. Sagittal and coronal reconstructions were generated. FINDINGS: LOWER CHEST: There are coronary artery calcifications. There is extensive anasarca of the left chest wall. There is a small amount of left pleural fluid or thickening. ABDOMEN: LIVER: The liver is irregular in outline consistent with cirrhosis. BILE DUCTS: Unremarkable GALLBLADDER: There are numerous small stones in a nondistended gallbladder. PANCREAS: Are unremarkable SPLEEN: The spleen appears enlarged measuring 19 centimeters in AP diameter. ADRENAL GLANDS: There are no obvious adrenal masses. KIDNEYS AND URETERS: There is a double-J stent on the left. There appear to be numerous large stones in the left kidney. Next The right kidney is unremarkable. PELVIS: BLADDER: Unremarkable REPRODUCTIVE ORGANS: The prostate is visualized. BOWEL: There is no significant bowel distention. VESSELS: There are atherosclerotic changes of the aorta. The cava is unremarkable. There are numerous collateral vessels in the abdomen. PERITONEUM/RETROPERITONE UM/LYMPH NODES: There is a marked amount of ascites. There is ascitic fluid in ventral hernia. There is fluid in the left inguinal hernia. There is no obvious free air. There is no obvious lymphadenopathy. BONES AND ABDOMINAL WALL: There is extensive anasarca. There is thickening of the skin. The patient is markedly scoliotic. There are multiple compression fractures. They do not appear acute. COMPARISON OF FINDINGS: IMPRESSION: Coronary artery calcifications. Anasarca. Ascites. Small irregular liver consistent with cirrhosis. Extensive collateral vessels. Enlarged spleen. Ventral and inguinal hernias containing ascitic fluid. MACRO: none Signed by: Yohana Huang 10/04/2024 2:28 PM Dictation workstation: [id number] [facility] Work Phone: Radiology Study observation (narrative) [facility] Work Phone: CT Abdomen and Pelvis W cont rast IVOrdered By: Yohana Huang on 10-04-2024 [facility] Work Phone: Cell count panel (Body fld)O rdered By: Fortino Mcgee on 10-04-2024 Clarity (Body fld) Hazy Abnormal Clear [facility] Color (Body fld) Straw Colorless, Straw, Yellow [facility] Interpretation and review of laboratory results Abnormal [facility] RBC Auto (Body fld) [#/Vol] 2000 /uL see comment [facility] WBC (Body fld) [#/Vol] 0.058 10*3/uL See Sarath t [facility] Body Fluid cell coun t reference ranges have not been established by [facility]. Reference ranges provided are based on published references. [facility] Cell count panel (Body fld)o n 10-04-2024 Clarity (Body fld) Hazy Abnormal Clear [facility] Comment on above: Order Comment: Body Fluid cell count reference ranges have not been established by [facility]. Reference ranges provided are based on published references. Performed By: #### 3 4556-1 #### MIREYA SHAH ([id number]) [facility] ([facility]) [address] [place] [address] Color (Body fld) Straw Normal Colorless, Straw, Yellow [facility] Comment on above: Order Comment: Body Fluid cell count reference ranges have not been established by [facility]. Reference ranges provided are based on published references. Performed By: #### 3 4556-1 #### MIREYA SHAH ([id number]) [facility] ([facility]) [address] [place] [address] RBC Auto (Body fld) [#/Vol] 2000 /uL Normal see comment [facility] Comment on above: Order Comment: Body Fluid cell count reference ranges have not been established by [facility]. Reference ranges provided are based on published references. Performed By: #### 3 4556-1 #### MIREYA SHAH ([id number]) [facility] ([facility]) [address] [place] [address] WBC (Body fld) [#/Vol] 0.058 10*3/uL Normal See Commevelin alex [facility] Comment on above: Order Comment: Body Fluid cell count reference ranges have not been established by [facility]. Reference ranges provided are based on published references. Performed By: #### 3 4556-1 #### MIREYA SHAH ([id number]) [facility] ([facility]) [address] [place] [id number] Coagulation surface inducedo n 10-04-2024 aPTT Coag (PPP) [Time] 40 s High 26-36 Un [facility] Comment on above: Order Comment: The A PTT is no longer used for monitoring Unfractionated Heparin Therapy. For monitoring Heparin Therapy, use the Heparin Assay. Performed By: #### 1 4979-9 #### MIREYA SHAH ([id number]) [facility] HOSPITAL) [address] [place] [address] Coagulation tissue factor in ducedon 10-04-2024 PT Coag (PPP) [Time] 23.6 s High 9.8-12.4 [facility] Comment on above: Performed By: #### 5 902-2 #### MIREYA SHAH ([id number]) [facility] ([facility]) [address] [place], [place] [id number] Differential panel (Body fld )on 10-04-2024 Basophils/100 WBC (Body fld) 0 % not established [facility] Blasts/100 WBC Manual cnt (Body fld) 0 % not established [facility] Cells Counted Total (Body fld) [#] 100 [facility] Eosinophils/100 WBC Manual cnt (Body fld) 0 % see comment [facility] Immature Granulocytes %, Manual, Fluid 0 % not established [facility] Interpretation and review of laboratory results Abnormal [facility] Lymphocytes/100 WBC Manual cnt (Body fld) 19 % see comment [facility] Monocytes+Macrophages/1 00 WBC Manual cnt (Body fld) 17 % see comment [facility] Neutrophils/100 WBC (Body fld) 40 % see comment [facility] Other cells/100 WBC Manual cnt (Body fld) 24 % High not established [facility] Comment on above: Mesothelial cells no tianna by tech Plasma cells/100 WBC Manual cnt (Body fld) 0 % not established [facility] Body Fluid cell differential reference ranges have not been established by [facility]. Reference ranges provided are based on published references. [facility] Basophils/100 WBC (Body fld) 0 % Normal not established [facility] Comment on above: Order Comment: Body Fluid cell differential reference ranges have not been established by [facility]. Reference ranges provided are based on published references. Performed By: #### 2 9580-8 #### MIREYA SHAH ([id number]) [facility] ([facility]) [address] [place] [address] Blasts/100 WBC Manual cnt (Body fld) 0 % Normal not established [facility] Comment on above: Order Comment: Body Fluid cell differential reference ranges have not been established by [facility]. Reference ranges provided are based on published references. Performed By: #### 2 9580-8 #### MIREYA SHAH ([id number]) [facility] ([facility]) [address] [place] [address] Cells Counted Total (Body fld) [#] 100 Normal [facility] Comment on above: Order Comment: Body Fluid cell differential reference ranges have not been established by [facility]. Reference ranges provided are based on published references. Performed By: #### 2 9580-8 #### MIREYA SHAH ([id number]) [facility] ([facility]) [address] [place] [address] Eosinophils/100 WBC Manual cnt (Body fld) 0 % Normal see comment [facility] Comment on above: Order Comment: Body Fluid cell differential reference ranges have not been established by [facility]. Reference ranges provided are based on published references. Performed By: #### 2 9580-8 #### MIREYA SHAH ([id number]) [facility] ([facility]) [address] [place] [address] IMMATURE GRANULOCYTES IN FLUID 0 % Normal not established [facility] Comment on above: Order Comment: Body Fluid cell differential reference ranges have not been established by [facility]. Reference ranges provided are based on published references. Performed By: #### 2 9580-8 #### MIREYA SAHH ([id number]) [facility] ([facility]) [address] [place] [address] Lymphocytes/100 WBC Manual cnt (Body fld) 19 % Normal see comment [facility] Comment on above: Order Comment: Body Fluid cell differential reference ranges have not been established by [facility]. Reference ranges provided are based on published references. Performed By: #### 2 9580-8 #### MIREYA SHAH ([id number]) [facility] ([facility]) [address] [place] [address] Monocytes+Macrophages/1 00 WBC Manual cnt (Body fld) 17 % Normal see comment [facility] Comment on above: Order Comment: Body Fluid cell differential reference ranges have not been established by [facility]. Reference ranges provided are based on published references. Performed By: #### 2 9580-8 #### MIREYA SHAH ([id number]) [facility] ([facility]) [address] [place] [address] Neutrophils/100 WBC (Body fld) 40 % Normal see comment [facility] Comment on above: Order Comment: Body Fluid cell differential reference ranges have not been established by [facility]. Reference ranges provided are based on published references. Performed By: #### 2 9580-8 #### MIREYA SHAH ([id number]) [facility] ([facility]) [address] [place] [address] Other cells/100 WBC Manual cnt (Body fld) 24 % High not established [facility] Comment on above: Order Comment: Body Fluid cell differential reference ranges have not been established by [facility]. Reference ranges provided are based on published references. Result Comment: Meso thelial cells noted by tech Performed By: #### 2 9580-8 #### MIREYA SHAH ([id number]) [facility] ([facility]) [address] [place] [address] Plasma cells/100 WBC Manual cnt (Body fld) 0 % Normal not established [facility] Comment on above: Order Comment: Body Fluid cell differential reference ranges have not been established by [facility]. Reference ranges provided are based on published references. Performed By: #### 2 9580-8 #### MIREYA SHAH ([id number]) [facility] ([facility]) [address] [place] [address] Glucoseon 10-04-2024 Glucose (Body fld) [Mass/Vol] 200 mg/dL Normal Not established [facility] Comment on above: Order Comment: Venip uncture immediately after or during the administration of Metamizole may lead to falsely low results. Testing should be performed immediately prior to Metamizole dosing. Performed By: #### 2 524-7 #### MIREYA SHAH ([id number]) [facility] ([facility]) [address] [place] [address] Hepatic function 2000 panelo n 10-04-2024 Albumin BCP dye [Mass/Vol] 2.4 g/dL Low 3.4 - 5.0 g/dL [facility] ALP [Catalytic activity/Vol] 212 U/L High 33 - 120 U/L [facility] ALT With P-5'-P [Catalytic activity/Vol] 46 U/L 10 - 52 U/L [facility] Comment on above: Patients treated wit h Sulfasalazine may generate falsely decreased results for ALT. AST With P-5'-P [Catalytic activity/Vol] 49 U/L High 9 - 39 U/L [facility] Bilirubin [Mass/Vol] 1.8 mg/dL High 0.0 - 1 .2 mg/dL [facility] Bilirubin.direct [Mass/Vol] 0.7 mg/dL High 0.0 - 0.3 mg/dL [facility] Protein [Mass/Vol] 5.7 g/dL Low 6.4 - 8.2 g/dL [facility] Albumin BCP dye [Mass/Vol] 2.4 g/dL Low 3.4-5.0 [facility] Comment on above: Performed By: #### 2 4325-3 #### MIREYA SHAH ([id number]) [facility] ([facility]) [address] [place] [address] ALP [Catalytic activity/Vol] 212 U/L High 33-120 [facility] Comment on above: Performed By: #### 2 4325-3 #### MIREYA SHAH ([id number]) [facility] ([facility]) [address] [place] [address] ALT With P-5'-P [Catalytic activity/Vol] 46 U/L Normal 10-52 [facility] Comment on above: Result Comment: Argenis ents treated with Sulfasalazine may generate falsely decreased results for ALT. Performed By: #### 2 4325-3 #### MIREYA SHAH ([id number]) [facility] ([facility]) [address] [place] [address] AST With P-5'-P [Catalytic activity/Vol] 49 U/L High 9-39 [facility] Comment on above: Performed By: #### 2 4324-3 #### MIREYA SHAH ([id number]) [facility] ([facility]) [address] [place] [address] Bilirubin [Mass/Vol] 1.8 mg/dL High 0.0-1.2 [facility] Comment on above: Performed By: #### 2 5-3 #### MIREYA SHAH ([id number]) [facility] ([facility]) [address] [place] [address] Bilirubin.direct [Mass/Vol] 0.7 mg/dL High 0.0-0.3 [facility] Comment on above: Performed By: #### 2 5-3 #### MIREYA SHAH ([id number]) [facility] ([facility]) [address] [place] [address] Protein [Mass/Vol] 5.7 g/dL Low 6.4-8.2 [facility] Comment on above: Performed By: #### 2 5-3 #### MIREYA SHAH ([id number]) [facility] ([facility]) [address] [place] [address] Lactateon 10-04-2024 Lactate [Moles/Vol] 2 mmol/L 0.4 - 2. 0 mmol/L [facility] Lactate [Moles/Vol] 2.0 mmol/L Normal 0.4-2.0 [facility] Comment on above: Order Comment: Venip uncture immediately after or during the administration of Metamizole may lead to falsely low results. Testing should be performed immediately prior to Metamizole dosing. Performed By: #### 2 524-7 #### MIREYA SHAH ([id number]) [facility] ([facility]) [address] [place] [address] Lactate [Moles/Vol]on 2024 Interpretation and review of laboratory results Normal [facility] Venipuncture immedia tely after or during the administration of Metamizole may lead to falsely low results. Testing should be performed immediately prior to Metamizole dosing. [facility] Lactate dehydrogenaseon LDH Lactate to pyruvate reaction (Body fld) [Catalytic activity/Vol] <25 Normal Not established. [facility] Comment on above: Order Comment: Venip uncture immediately after or during the administration of Metamizole may lead to falsely low results. Testing should be performed immediately prior to Metamizole dosing. Performed By: #### 2 524-7 #### MIREYA SHAH ([id number]) [facility] ([facility]) [address] [place] [address] Lipaseon 10-04-2024 Lipase [Catalytic activity/Vol] 56 U/L 9 - 82 U/L [facility] Lipase [Catalytic activity/V ol]on 10-04-2024 Interpretation and review of laboratory results Normal [facility] Venipuncture immedia tely after or during the administration of Metamizole may lead to falsely low results. Testing should be performed immediately prior to Metamizole dosing. [facility] No Panel Informationon 10-04 Interpretation and review of laboratory results Abnormal [facility] Interpretation and review of laboratory results Abnormal [facility] Non-assembler rubber footwear cytology studyon Non-gynecological cytology method study Pathology report.total SEE COMMENT Non-gynecologic Cytology Case: [id number] Authorizing Provider: Joey Huang DO Collected: 10/04/2024 9664 Ordering Location: [facility] Received: 10/05/[address] [place] [address] Emergency Medicine Pathologist: Jarvis Guzman MD Specimen: ASCITIC FLUID Path report.final diagnosis SEE COMMENT A. ASCITIC FLUID: - NO MALIGNANT CELLS IDENTIFIED. Note: This case has been evaluated using a concentrated (ThinPrep) preparation. Laboratory comment SEE COMMENT Slide(s) initially screened by ABEL Castro at [address] [id number] By the signature on this report, the individual or group listed as making the Final Interpretation/Diagnosis certifies that they have reviewed this case. Path report.relevant Hx Abdominal pain; history of cirrhosis Path report.gross observation SEE COMMENT A. ASCITIC FLUID. Received 3 ml pale yellow clear fluid without particles in sterile tube . Qns for cell block Laboratory comment SEE COMMENT A1 Slides Only (No Block) A1-1 Pap Stain NGYN ThinPrep Normal [facility] PT Coag (PPP) [Time]on 10-04 INR Coag (PPP) [Relative time] 2.1 {INR} High 0.9 - 1.1 [facility] INR Coag (PPP) [Relative time] 2.1 High 0.9-1.1 [facility] Comment on above: Performed By: #### 5 902-2 #### GOMES ALYSSA ([id number]) [facility] ([facility]) [address] [place] [address] Paracentesison 10-04-2024 Joey Huang DO 10/04/2024 5:18 PM Paracentesis Date/Time: 10/04/2024 5:17 PM Performed by: Joey Huang DO Authorized by: Joey Huang DO Consent: Consent obtained: Written Consent given by: Patient Risks, benefits, and alternatives were discussed: yes Risks discussed: Bleeding, bowel perforation and infection Alternatives discussed: No treatment [place] protocol: Procedure explained and questions answered to patient or proxy's satisfaction: yes Relevant documents present and verified: yes Test results available: yes Imaging studies available: yes Required blood products, implants, devices, and special equipment available: yes Site/side marked: yes Immediately prior to procedure, a time out was called: yes Patient identity confirmed: Verbally with patient Pre-procedure details: Procedure purpose: Therapeutic Preparation: Patient was prepped and draped in usual sterile fashion Anesthesia: Anesthesia method: Local infiltration Local anesthetic: Lidocaine 1% w/o epi Procedure details: Needle gauge: 22 Ultrasound guidance: yes Puncture site: R lower quadrant Fluid removed amount: 2800 Fluid appearance: Clear Dressing: Adhesive bandage Post-procedure details: Procedure completion: Tolerated [facility] Work Phone: [facility] Work Phone: Proteinon 10-04-2024 Protein (Body fld) [Mass/Vol] g/dL Normal Not established [facility] Comment on above: Order Comment: Venip uncture immediately after or during the administration of Metamizole may lead to falsely low results. Testing should be performed immediately prior to Metamizole dosing. Performed By: #### 2 524-7 #### MIREYA SHAH ([id number]) [facility] ([facility]) [address] [place] [address] Protime-INRon 10-04-2024 PT Coag (PPP) [Time] 23.6 s [facility] Triacylglycerol lipaseon Lipase [Catalytic activity/Vol] 56 U/L Normal 9-82 [facility] Comment on above: Order Comment: Venip uncture immediately after or during the administration of Metamizole may lead to falsely low results. Testing should be performed immediately prior to Metamizole dosing. Performed By: #### 3 040-3 #### MIREYA SHAH ([id number]) [facility] ([facility]) [address] [place] [address] aPTT Coag (PPP) [Time]on The APTT is no longe r used for monitoring Unfractionated Heparin Therapy. For monitoring Heparin Therapy, use the Heparin Assay. [facility] pHon 10-04-2024 pH (Body fld) 7.82 Normal See Below [facility] Comment on above: Order Comment: Venip uncture immediately after or during the administration of Metamizole may lead to falsely low results. Testing should be performed immediately prior to Metamizole dosing. Performed By: #### 2 524-7 #### MIREYA ALYSSA ([id number]) [facility] ([facility]) [address] [place] [address] Operative Reporton Operative Report Normal [facility] Bedside Glucoseon 09-14-2024 FINGERSTICK GLU 134 mg/dL High 74-106 [facility] Comment on above: Result Comment: BRISA GEMENT OF PATIENT CARE PER NURSING PROTOCOL Performed By: #### L 501.080 ####[facility] [address] [place], [address] FINGERSTICK GLU 168 mg/dL High [facility]106 [facility] Comment on above: Result Comment: BRISA GEMENT OF PATIENT CARE PER NURSING PROTOCOL Performed By: #### L 501.080 ####[facility] [address] [place], [address] FINGERSTICK GLU 176 mg/dL High [facility]106 [facility] Comment on above: Result Comment: BRISA GEMENT OF PATIENT CARE PER NURSING PROTOCOL Performed By: #### L 501.080 ####[facility] [address] [place], [address] FINGERSTICK GLU 118 mg/dL High [address] [place] [address] Comment on above: Result Comment: BRISA GEMENT OF PATIENT CARE PER NURSING PROTOCOL Performed By: #### L 501.080 ####[facility] [address] [place], [address] FINGERSTICK GLU 191 mg/dL High [facility]106 [facility] Comment on above: Result Comment: BRISA GEMENT OF PATIENT CARE PER NURSING PROTOCOL Performed By: #### L 501.080 ####[facility] [address] [place], [address] [facility] deOrdered By: Boone Izquierdo on 09-14-2024 Bedside Glucose (Misc Panel) 134 mg/dL High 74-106 [facility] Comment on above: MANAGEMENT OF PATIEN T CARE PER NURSING PROTOCOL Glucose [Mass/Vol] 134 mg/dL High 74-106 [facility] Glucose measurement at bedside 134 mg/dL High 74-106 [facility] Bedside Glucoseon 09-13-2024 FINGERSTICK GLU 191 mg/dL High 74-106 [facility] Comment on above: Result Comment: BRISA GEMENT OF PATIENT CARE PER NURSING PROTOCOL Performed By: #### L 501.080 ####[facility] [address] [place], [address] FINGERSTICK GLU 185 mg/dL High 74-106 [facility] Comment on above: Result Comment: BRISA GEMENT OF PATIENT CARE PER NURSING PROTOCOL Performed By: #### L 501.080 ####[facility] [address] [place], [address] FINGERSTICK GLU 146 mg/dL High 74-106 [facility] Comment on above: Result Comment: BRISA GEMENT OF PATIENT CARE PER NURSING PROTOCOL Performed By: #### L 501.080 ####[facility] [address] [place], [address] Basic Metabolic Profile (BMP )on 09-12-2024 BUN/CRE 7.6 RATIO Low 10-20 [facility] Comment on above: Performed By: #### L 500.2500, L100.0500 ####[facility] [address] [place], [address] CA,Total 8.1 mg/dL Low 8.5-10.1 [facility] Comment on above: Performed By: #### L 500.2500, L100.0500 ####[facility] [address] [place], [address] Chloride [Moles/Vol] 109 mmol/L High 98-107 [facility] Comment on above: Performed By: #### L 500.2500, L100.0500 ####[facility] [address] [place], [address] CO2 [Moles/Vol] 20.0 mmol/L Low 21.0-32.0 [facility] Comment on above: Performed By: #### L 500.2500, L100.0500 ####[facility] [address] [place], [address] Creatinine [Mass/Vol] 0.92 mg/dL Normal 0.70-1.30 [facility] Comment on above: Result Comment: The validity of the calculated GFR GFRAA in patients over70 years has not been determined. Clinical correlation isessential. Performed By: #### L 500.2500, L100.0500 ####[facility] [address] [place], [address] ECRCL 71.80 ml/min Normal [facility] Comment on above: Performed By: #### L 500.2500, L100.0500 ####[facility] [address] [place], [address] EST GFR - AA 108 mL/min Normal >60 [facility] Comment on above: Result Comment: Afri can Dutch GFR Calc Performed By: #### L 500.2500, L100.0500 ####[facility] [address] [place], [address] GAP 7 Normal 5-15 [facility] Comment on above: Performed By: #### L 500.2500, L100.0500 ####[facility] [address] [place], [address] GFR/1.73 sq M.predicted among non-blacks MDRD (S/P/Bld) [Vol rate/Area] 89 mL/min/{1.73_m2} Normal >60 [facility] Comment on above: Result Comment: Non- GFR Calc Performed By: #### L 500.2500, L100.0500 ####[facility] [address] [place], [address] Glucose [Mass/Vol] 149 mg/dL High 74-106 [facility] Comment on above: Result Comment: Fast ing Glucose result greater than or equal to 126 mg/dLsuggests DIABETES MELLITUS per A.D.A. criteria. Performed By: #### L 500.2500, L100.0500 ####[facility] [address] [place], [address] Potassium [Moles/Vol] 3.4 mmol/L Low 3.5-5.1 [facility] Comment on above: Performed By: #### L 500.2500, L100.0500 ####[facility] [address] [place], [address] Sodium [Moles/Vol] 136 mmol/L Normal 136-145 [facility] Comment on above: Performed By: #### L 500.2500, L100.0500 ####[facility] [address] [place], [address] Urea nitrogen [Mass/Vol] 7 mg/dL Normal 7-18 [facility] Comment on above: Performed By: #### L 500.2500, L100.0500 ####[facility] [address] [place], [address] Bedside Glucoseon 09-12-2024 FINGERSTICK GLU 230 mg/dL High 74-106 [facility] Comment on above: Result Comment: BRISA GEMENT OF PATIENT CARE PER NURSING PROTOCOL Performed By: #### L 501.080 ####[facility] [address] [place], [address] FINGERSTICK GLU 182 mg/dL High 74-106 [facility] Comment on above: Result Comment: BRISA GEMENT OF PATIENT CARE PER NURSING PROTOCOL Performed By: #### L 501.080 ####[facility] [address] [place], [address] FINGERSTICK GLU 195 mg/dL High 74-106 [facility] Comment on above: Result Comment: RBISA GEMENT OF PATIENT CARE PER NURSING PROTOCOL Performed By: #### L 501.080 ####[facility] [address] [place], [address] FINGERSTICK GLU 129 mg/dL High 74-106 [facility] Comment on above: Result Comment: BRISA MOROCHO OF PATIENT CARE PER NURSING PROTOCOL Performed By: #### L 501.080 ####[facility] [address] [place], [address] Blood urea nitrogen (BUN)/cr eatinine ratioOrdered By: Jae Ash on 09-12-2024 Urea nitrogen/Creatinine [Mass ratio] 7.6 mg/mg Low 10-20 [facility] Blood urea nitrogen (BUN)/creatinine ratio 7.6 RATIO Low 10-20 [facility] CBC-Complete Blood Cnt No Di ffon 09-12-2024 Erythrocyte distribution width (RBC) [Ratio] 19.7 % High 11.6-14.6 [facility] Comment on above: Performed By: #### L 500.2500, L100.0500 ####[facility] [address] [place], [address] Hematocrit (Bld) [Volume fraction] 25.8 % Low 40-54 [facility] Comment on above: Performed By: #### L 500.2500, L100.0500 ####[facility] [address] [place], [address] Hemoglobin (Bld) [Mass/Vol] 8.1 g/dL Low 13.0-16.5 [facility] Comment on above: Performed By: #### L 500.2500, L100.0500 ####[facility] [address] [place], [address] MCH (RBC) [Entitic mass] 28.4 pg Normal 27.0-32.0 [facility] Comment on above: Performed By: #### L 500.2500, L100.0500 ####[facility] [address] [place], [address] MCHC (RBC) [Mass/Vol] 31.4 g/dL Low 32-36 [facility] Comment on above: Performed By: #### L 500.2500, L100.0500 ####[facility] [address] [place], [address] MCV (RBC) [Entitic vol] 90.5 fL Normal 80-94 [facility] Comment on above: Performed By: #### L 500.2500, L100.0500 ####[facility] [address] [place], [address] Platelet mean volume (Bld) [Entitic vol] 11.9 fL Normal 6.2-12.0 [facility] Comment on above: Performed By: #### L 500.2500, L100.0500 ####[facility] [address] [place], [address] Platelets (Bld) [#/Vol] 115 10*3/uL Low 150-450 [facility] Comment on above: Performed By: #### L 500.2500, L100.0500 ####[facility] [address] [place], [address] RBC (Bld) [#/Vol] 2.85 10*6/uL Low 4.6-6.2 [facility] Comment on above: Performed By: #### L 500.2500, L100.0500 ####[facility] [address] [place], [address] RDW SD 63.5 fl High 35.1-43.9 [facility] Comment on above: Performed By: #### L 500.2500, L100.0500 ####[facility] [address] [place], [address] WBC (Bld) [#/Vol] 7.4 10*3/uL Normal 4.4-11.0 [facility] Comment on above: Performed By: #### L 500.2500, L100.0500 ####[facility] [address] [place], [address] Calcium [Mass/Vol]Ordered By : Jae Ash on 09-12-2024 Serum or plasma calcium measurement (mass/volume) 8.1 mg/dL Low 8.5-10.1 [facility] Carbon dioxide measurementOr dered By: Jae Ash on 09-12-2024 CO2 [Moles/Vol] 20.0 mmol/L Low 21.0-32.0 [facility] Carbon dioxide measurement 20.0 mmol/L Low 21.0-32.0 [facility] Chloride measurementOrdered By: Jae Ash on 09-12-2024 Chloride [Moles/Vol] 109 mmol/L High 98-107 [facility] Chloride measurement 109 mmol/L High 98-107 [facility] Creatinine [Mass/Vol]Ordered By: Jae Ash on 09-12-2024 Serum or plasma creatinine measurement (mass/volume) 0.92 mg/dL 0.70-1.30 [facility] Erythrocyte distribution wid th (RBC) [Ratio]Ordered By: Jae Ash on 09-12-2024 Erythrocyte distribution width ratio 19.7 % High 11.6-14.6 [facility] Erythrocyte distribution width standard deviation 63.5 fl High 35.1-43.9 [facility] Erythrocyte distribution wid th ratioOrdered By: Jae Ash on 09-12-2024 Erythrocyte distribution width (RBC) [Ratio] 19.7 % High 11.6-14.6 [facility] Erythrocyte distribution wid th standard deviationOrdered By: Jae Ash on 09-12-2024 Erythrocyte distribution width (RBC) [Entitic vol] 63.5 fL High 35.1-43.9 [facility] Erythrocyte distribution width (RBC) [Ratio] 63.5 fl High 35.1-43.9 [facility] Estimated glomerular filtrat ion rate (GFR) AmericanOrdered By: Jae Ash on 09-12-2024 Estimated GFR (MDRD) Amer 108 mL/min >60 [facility] Comment on above: GFR Calc Estimated glomerular filtration rate (GFR) 108 mL/min >60 [facility] Estimation of creatinine carolina aranceOrdered By: Jae Ash on 09-12-2024 Estimated Creatinine Clearance Calc 71.80 ml/min [facility] Estimation of creatinine clearance 71.80 ml/min [facility] Glomerular filtration rate ( GFR) estimationOrdered By: Jae Ash on 09-12-2024 Estimated GFR (MDRD) Non-Af Amer 89 mL/min >60 [facility] Comment on above: Non- GFR Calc GFR/1.73 sq M.predicted among non-blacks MDRD (S/P/Bld) [Vol rate/Area] 89 mL/min/{1.73_m2} >60 [facility] Glomerular filtration rate (GFR) estimation 89 mL/min >60 [facility] Glucose measurementOrdered B y: Jae Ash on 09-12-2024 Glucose [Mass/Vol] 149 mg/dL High 74-106 [facility] Comment on above: Fasting Glucose resu lt greater than or equal to 126 mg/dL suggests DIABETES MELLITUS per A.D.A. criteria. Glucose measurement 149 mg/dL High 74-106 [facility] Hematocrit Auto (Bld) [Volum e fraction]Ordered By: Jae Ash on 09-12-2024 Hematocrit (Bld) [Volume fraction] 25.8 % Low 40-54 [facility] Automated blood hematocrit (percentage) 25.8 % Low 40-54 [facility] Hemoglobin measurementOrdere d By: Jae Ash on 09-12-2024 Hemoglobin (Bld) [Mass/Vol] 8.1 g/dL Low 13.0-16.5 [facility] Hemoglobin measurement 8.1 g/dL Low 13.0-16.5 [facility] MCV (RBC) [Entitic vol]Order ed By: Jae Ash on 09-12-2024 MCV (mean corpuscular volume) determination 90.5 fL 80-94 [facility] MCV (mean corpuscular volume ) determinationOrdered By: Jae Ash on 09-12-2024 MCV (RBC) [Entitic vol] 90.5 fL 80-94 [facility] Mean corpuscular hemoglobin (MCH) determinationOrdered By: Jae Ash on 09-12-2024 MCH (RBC) [Entitic mass] 28.4 pg 27.0-32.0 [facility] Mean corpuscular hemoglobin (MCH) determination 28.4 pg 27.0-32.0 [facility] Mean corpuscular hemoglobin concentration (MCHC) determinationOrdered By: Jae Ash on 09-12-2024 MCHC (RBC) [Mass/Vol] 31.4 g/dL Low 32-36 [facility] Comment on above: Delta: 33.1 on 09/10 Mean corpuscular hemoglobin concentration (MCHC) determination 31.4 g/dL Low 32-36 [facility] Mean platelet volume determi nationOrdered By: Jae Ash on 09-12-2024 Platelet mean volume (Bld) [Entitic vol] 11.9 fL 6.2-12.0 [facility] Mean platelet volume determination 11.9 fl 6.2-12.0 [facility] Platelet countOrdered By: Sky Ash on 09-12-2024 Platelets (Bld) [#/Vol] 115 10*3/uL Low 150-450 [facility] Platelet count 115 K/mm3 Low 150-450 [facility] Potassium measurementOrdered By: Jae Ash on 09-12-2024 Potassium [Moles/Vol] 3.4 mmol/L Low 3.5-5.1 [facility] Potassium measurement 3.4 mmol/L Low 3.5-5.1 [facility] RBC Auto (Bld) [#/Vol]Ordere d By: Jae Ash on 09-12-2024 RBC (Bld) [#/Vol] 2.85 10*6/uL Low 4.6-6.2 [facility] Automated blood erythrocyte count 2.85 M/mm3 Low 4.6-6.2 [facility] Serum anion gap measurementO rdered By: Jae Ash on 09-12-2024 Anion gap [Moles/Vol] 7 mmol/L 5-15 [facility] Serum anion gap measurement 7 5-15 [facility] Serum or plasma calcium roosevelt urement (mass/volume)Ordered By: Jae Ash on 09-12-2024 Calcium [Mass/Vol] 8.1 mg/dL Low 8.5-10.1 [facility] Serum or plasma creatinine m easurement (mass/volume)Ordered By: Jae Ash on 09-12-2024 Creatinine [Mass/Vol] 0.92 mg/dL 0.70-1.30 [facility] Comment on above: The validity of the calculated GFR & GFRAA in patients over 70 years has not been determined. Clinical correlation is essential. Serum or plasma urea nitroge n measurement (mass/volume)Ordered By: Jae Ash on 09-12-2024 Urea nitrogen [Mass/Vol] 7 mg/dL 02-18 [facility] Sodium levelOrdered By: Pasha Ash on 09-12-2024 Sodium [Moles/Vol] 136 mmol/L 136-145 [facility] Sodium level 136 mmol/L 136-145 [facility] Urea nitrogen [Mass/Vol]Orde red By: Jae Ash on 09-12-2024 Serum or plasma urea nitrogen measurement (mass/volume) 7 mg/dL 02-18 [facility] White blood cell (WBC) count Ordered By: Jae Ash on 09-12-2024 WBC (Bld) [#/Vol] 7.4 10*3/uL 4.4-11.0 [facility] White blood cell (WBC) count 7.4 K/mm3 4.4-11.0 [facility] Bedside Glucoseon 09-11-2024 FINGERSTICK GLU 181 mg/dL High 74-106 [facility] Comment on above: Result Comment: BRISA GEMENT OF PATIENT CARE PER NURSING PROTOCOL Performed By: #### L 501.080 ####[facility] [address] [facility] [id number] FINGERSTICK GLU 160 mg/dL High 74-106 [facility] Comment on above: Result Comment: BRISA GEMENT OF PATIENT CARE PER NURSING PROTOCOL Performed By: #### L 501.080 ####[facility] [address] [place], [address] FINGERSTICK GLU 221 mg/dL High 74-106 [facility] Comment on above: Result Comment: BRISA GEMENT OF PATIENT CARE PER NURSING PROTOCOL Performed By: #### L 501.080 ####[facility] [address] [place], [address] FINGERSTICK GLU 156 mg/dL High 74-106 [facility] Comment on above: Result Comment: BRISA MOROCHO OF PATIENT CARE PER NURSING PROTOCOL Performed By: #### L 501.080 ####[facility] [address] [place], [address] Culture, Blood (WB)on 2024 CUB mrse bacteremia No growth in 5 days. Normal [facility] Comment on above: Performed By: #### M 200.1000 ####[facility] [address] [place], [address] Basic Metabolic Profile (BMP )on 09-10-2024 BUN/CRE 8.1 RATIO Low 10-20 [facility] Comment on above: Performed By: #### L 500.2500, L100.0500 ####[facility] [address] [place], [address] CA,Total 8.4 mg/dL Low 8.5-10.1 [facility] Comment on above: Performed By: #### L 500.2500, L100.0500 ####[facility] [address] [place], [address] Chloride [Moles/Vol] 110 mmol/L High 98-107 [facility] Comment on above: Performed By: #### L 500.2500, L100.0500 ####[facility] [address] [place], [address] CO2 [Moles/Vol] 19.0 mmol/L Low 21.0-32.0 [facility] Comment on above: Performed By: #### L 500.2500, L100.0500 ####[facility] [address] [place], [address] Creatinine [Mass/Vol] 0.98 mg/dL Normal 0.70-1.30 [facility] Comment on above: Result Comment: The validity of the calculated GFR GFRAA in patients over70 years has not been determined. Clinical correlation isessential. Performed By: #### L 500.2500, L100.0500 ####[facility] [address] [place], [address] ECRCL 100.62 ml/min Normal [facility] Comment on above: Performed By: #### L 500.2500, L100.0500 ####[facility] [address] [place], [address] EST GFR - AA 101 mL/min Normal >60 [facility] Comment on above: Result Comment: Afri can Dutch GFR Calc Performed By: #### L 500.2500, L100.0500 ####[facility] [address] [place], [address] GAP 7 Normal 5-15 [facility] Comment on above: Performed By: #### L 500.2500, L100.0500 ####[facility] [address] [place], [address] GFR/1.73 sq M.predicted among non-blacks MDRD (S/P/Bld) [Vol rate/Area] 83 mL/min/{1.73_m2} Normal >60 [facility] Comment on above: Result Comment: Non- GFR Calc Performed By: #### L 500.2500, L100.0500 ####[facility] [address] [place], [address] Glucose [Mass/Vol] 138 mg/dL High 74-106 [facility] Comment on above: Result Comment: Fast ing Glucose result greater than or equal to 126 mg/dLsuggests DIABETES MELLITUS per A.D.A. criteria. Performed By: #### L 500.2500, L100.0500 ####[facility] [address] [place], [address] Potassium [Moles/Vol] 3.6 mmol/L Normal 3.5-5.1 [facility] Comment on above: Performed By: #### L 500.2500, L100.0500 ####[facility] [address] [place], [address] Sodium [Moles/Vol] 136 mmol/L Normal 136-145 [facility] Comment on above: Performed By: #### L 500.2500, L100.0500 ####[facility] [address] [place], [address] Urea nitrogen [Mass/Vol] 8 mg/dL Normal 7-18 [facility] Comment on above: Performed By: #### L 500.2500, L100.0500 ####[facility] [address] [place], [address] Bedside Glucoseon 09-10-2024 FINGERSTICK GLU 240 mg/dL High 74-106 [facility] Comment on above: Result Comment: BRISA GEMENT OF PATIENT CARE PER NURSING PROTOCOL Performed By: #### L 501.080 ####[facility] [address] [place], [address] FINGERSTICK GLU 233 mg/dL High 74-106 [facility] Comment on above: Result Comment: BRISA GEMENT OF PATIENT CARE PER NURSING PROTOCOL Performed By: #### L 501.080 ####[facility] [address] [place], [address] FINGERSTICK GLU 197 mg/dL High 74-106 [facility] Comment on above: Result Comment: BRISA GEMENT OF PATIENT CARE PER NURSING PROTOCOL Performed By: #### L 501.080 ####[facility] [address] [place], [address] FINGERSTICK GLU 134 mg/dL High 74-106 [facility] Comment on above: Result Comment: BRISA GEMENT OF PATIENT CARE PER NURSING PROTOCOL Performed By: #### L 501.080 ####[facility] [address] [place], [address] CBC-Complete Blood Cnt No Di ffon 09-10-2024 Erythrocyte distribution width (RBC) [Ratio] 18.9 % High 11.6-14.6 [facility] Comment on above: Performed By: #### L 500.2500, L100.0500 ####[facility] [address] [place], [address] Hematocrit (Bld) [Volume fraction] 24.5 % Low 40-54 [facility] Comment on above: Performed By: #### L 500.2500, L100.0500 ####[facility] [address] [place], [address] Hemoglobin (Bld) [Mass/Vol] 8.1 g/dL Low 13.0-16.5 [facility] Comment on above: Performed By: #### L 500.2500, L100.0500 ####[facility] [address] [place], [address] MCH (RBC) [Entitic mass] 28.9 pg Normal 27.0-32.0 [facility] Comment on above: Performed By: #### L 500.2500, L100.0500 ####[facility] [address] [place], [address] MCHC (RBC) [Mass/Vol] 33.1 g/dL Normal 32-36 [facility] Comment on above: Performed By: #### L 500.2500, L100.0500 ####[facility] [address] [place], [address] MCV (RBC) [Entitic vol] 87.5 fL Normal 80-94 [facility] Comment on above: Performed By: #### L 500.2500, L100.0500 ####[facility] [address] [place], [address] Platelet mean volume (Bld) [Entitic vol] 11.7 fL Normal 6.2-12.0 [facility] Comment on above: Performed By: #### L 500.2500, L100.0500 ####[facility] [address] [place], [address] Platelets (Bld) [#/Vol] 124 10*3/uL Low 150-450 [facility] Comment on above: Performed By: #### L 500.2500, L100.0500 ####[facility] [address] [place], [address] RBC (Bld) [#/Vol] 2.80 10*6/uL Low 4.6-6.2 [facility] Comment on above: Performed By: #### L 500.2500, L100.0500 ####[facility] [address] [place], [address] RDW SD 54.9 fl High 35.1-43.9 [facility] Comment on above: Performed By: #### L 500.2500, L100.0500 ####[facility] [address] [place], [address] WBC (Bld) [#/Vol] 9.3 10*3/uL Normal 4.4-11.0 [facility] Comment on above: Performed By: #### L 500.2500, L100.0500 ####[facility] [address] [place], [address] Serum or plasma trough vanco mycin levelOrdered By: Thai Thurston on 09-10-2024 Vancomycin trough [Mass/Vol] 15.7 ug/mL High 5.0-15.0 [facility] Vancomycin trough [Mass/Vol] Ordered By: Thai Thurston on 09-10-2024 Vancomycin Level Trough 15.7 ug/mL High 5.0-15.0 [facility] Comment on above: VANCOMYCIN STANDARED DRUG THERAPY TROUGH LEVEL: 5.0 - 15.0 mg/L VANCOMYCIN HIGH INTENSITY THERAPY TROUGH LEVEL: 15.0 - 20.0 mg/L High Intensity therapy recommended for serious lifethreatening infections include:- Vrrdhonuhm-Znkqwnuxvqqp-Mkgcfxaxj (Ventilator/Healtcare Associated)-Sepsis PLEASE CONTACT PHARMACY SERVICES (#[id number]) FOR INTERPRETATIONOF RESULTS. Serum or plasma trough vancomycin level 15.7 ug/mL High 5.0-15.0 [facility] Vancomycin, Trough Levelon 0 09-10-2024 VANCO, TROUGH 15.7 ug/mL High 5.0-15.0 [facility] Comment on above: Order Comment: 1100 Result Comment: VANC OMYCIN STANDARED DRUG THERAPY TROUGH LEVEL: 5.0 - 15.0 mg/LVANCOMYCIN HIGH INTENSITY THERAPY TROUGH LEVEL: 15.0 - 20.0 mg/LHigh Intensity therapy recommended for serious lifethreatening infections include:- Vjqqvswnmm-Nskpjkytvvck-Xbknkguze (Ventilator/Healtcare Associated)-SepsisPLEASE CONTACT PHARMACY SERVICES (#[id number]) FOR INTERPRETATIONOF RESULTS. Performed By: #### L 501.8820 ####[facility] [address] [place], [address] Basic Metabolic Profile (BMP )on 09-09-2024 BUN/CRE 9.0 RATIO Low 10-20 [facility] Comment on above: Performed By: #### L 500.2500, L100.0500 ####[facility] [address] [place], [address] CA,Total 8.6 mg/dL Normal 8.5-10.1 [facility] Comment on above: Performed By: #### L 500.2500, L100.0500 ####[facility] [address] [place], [address] Chloride [Moles/Vol] 109 mmol/L High 98-107 [facility] Comment on above: Performed By: #### L 500.2500, L100.0500 ####[facility] [address] [place], [address] CO2 [Moles/Vol] 18.0 mmol/L Low 21.0-32.0 [facility] Comment on above: Performed By: #### L 500.2500, L100.0500 ####[facility] [address] [place], [address] Creatinine [Mass/Vol] 1.11 mg/dL Normal 0.70-1.30 [facility] Comment on above: Result Comment: The validity of the calculated GFR GFRAA in patients over70 years has not been determined. Clinical correlation isessential. Performed By: #### L 500.2500, L100.0500 ####[facility] [address] [place], [address] ECRCL 88.83 ml/min Normal [facility] Comment on above: Performed By: #### L 500.2500, L100.0500 ####[facility] [address] [place], [address] EST GFR - AA 88 mL/min Normal >60 [facility] Comment on above: Result Comment: Afri can Dutch GFR Calc Performed By: #### L 500.2500, L100.0500 ####[facility] [address] [place], [address] GAP 8 Normal 5-15 [facility] Comment on above: Performed By: #### L 500.2500, L100.0500 ####[facility] [address] [place], [address] GFR/1.73 sq M.predicted among non-blacks MDRD (S/P/Bld) [Vol rate/Area] 72 mL/min/{1.73_m2} Normal >60 [facility] Comment on above: Result Comment: Non- GFR Calc Performed By: #### L 500.2500, L100.0500 ####[facility] [address] [place], [address] Glucose [Mass/Vol] 220 mg/dL High 74-106 [facility] Comment on above: Result Comment: Gluc ose result greater than or equal to 200 mg/dLsuggests DIABETES MELLITUS per A.D.A. criteria. Performed By: #### L 500.2500, L100.0500 ####[facility] [address] [place], [address] Potassium [Moles/Vol] 3.3 mmol/L Low 3.5-5.1 [facility] Comment on above: Performed By: #### L 500.2500, L100.0500 ####[facility] [address] [place], [address] Sodium [Moles/Vol] 135 mmol/L Low 136-145 [facility] Comment on above: Performed By: #### L 500.2500, L100.0500 ####[facility] [address] [place], [address] Urea nitrogen [Mass/Vol] 10 mg/dL Normal 7-18 [facility] Comment on above: Performed By: #### L 500.2500, L100.0500 ####[facility] [address] [place], [address] Bedside Glucoseon 09-09-2024 FINGERSTICK GLU 164 mg/dL High -106 [facility] Comment on above: Result Comment: BRISA GEMENT OF PATIENT CARE PER NURSING PROTOCOL Performed By: #### L 501.080 ####[facility] [address] [place], [address] FINGERSTICK GLU 198 mg/dL High [address] [place] [address] Comment on above: Result Comment: BRISA GEMENT OF PATIENT CARE PER NURSING PROTOCOL Performed By: #### L 501.080 ####[facility] [address] [place], [address] FINGERSTICK GLU 193 mg/dL High 74-106 [facility] Comment on above: Result Comment: BRISA GEMENT OF PATIENT CARE PER NURSING PROTOCOL Performed By: #### L 501.080 ####[facility] [address] [place], [address] FINGERSTICK GLU 247 mg/dL High 74-106 [facility] Comment on above: Result Comment: BRISA GEMENT OF PATIENT CARE PER NURSING PROTOCOL Performed By: #### L 501.080 ####[facility] [address] [place], [address] CBC-Complete Blood Cnt No Di ffon 09-09-2024 Erythrocyte distribution width (RBC) [Ratio] 18.5 % High 11.6-14.6 [facility] Comment on above: Performed By: #### L 500.2500, L100.0500 ####[facility] [address] [place], [address] Hematocrit (Bld) [Volume fraction] 24.3 % Low 40-54 [facility] Comment on above: Performed By: #### L 500.2500, L100.0500 ####[facility] [address] [place], [address] Hemoglobin (Bld) [Mass/Vol] 8.2 g/dL Low 13.0-16.5 [facility] Comment on above: Performed By: #### L 500.2500, L100.0500 ####[facility] [address] [place], [address] MCH (RBC) [Entitic mass] 29.7 pg Normal 27.0-32.0 [facility] Comment on above: Performed By: #### L 500.2500, L100.0500 ####[facility] [address] [place], [address] MCHC (RBC) [Mass/Vol] 33.7 g/dL Normal 32-36 [facility] Comment on above: Performed By: #### L 500.2500, L100.0500 ####[facility] [address] [place], [address] MCV (RBC) [Entitic vol] 88.0 fL Normal 80-94 [facility] Comment on above: Performed By: #### L 500.2500, L100.0500 ####[facility] [address] [place], [address] Platelet mean volume (Bld) [Entitic vol] 11.7 fL Normal 6.2-12.0 [facility] Comment on above: Performed By: #### L 500.2500, L100.0500 ####[facility] [address] [place], [address] Platelets (Bld) [#/Vol] 119 10*3/uL Low 150-450 [facility] Comment on above: Performed By: #### L 500.2500, L100.0500 ####[facility] [address] [place], [address] RBC (Bld) [#/Vol] 2.76 10*6/uL Low 4.6-6.2 [facility] Comment on above: Performed By: #### L 500.2500, L100.0500 ####[facility] [address] [place], [address] RDW SD 52.2 fl High 35.1-43.9 [facility] Comment on above: Performed By: #### L 500.2500, L100.0500 ####[facility] [address] [place], [address] WBC (Bld) [#/Vol] 9.9 10*3/uL Normal 4.4-11.0 [facility] Comment on above: Performed By: #### L 500.2500, L100.0500 ####[facility] [address] [place], [address] Abdomen/Pelvis without Conto n 09-08-2024 Abdomen/Pelvis without Cont Normal [facility] Bedside Glucoseon 09-08-2024 FINGERSTICK GLU 250 mg/dL High [address] [place] [address] Comment on above: Result Comment: BRISA GEMENT OF PATIENT CARE PER NURSING PROTOCOL Performed By: #### L 501.080 ####[facility] [address] [place], [address] FINGERSTICK GLU 247 mg/dL High [address] [place] [address] Comment on above: Result Comment: BRISA GEMENT OF PATIENT CARE PER NURSING PROTOCOL Performed By: #### L 501.080 ####[facility] [address] [place], [address] FINGERSTICK GLU 244 mg/dL High [address] [place] [address] Comment on above: Result Comment: BRISA GEMENT OF PATIENT CARE PER NURSING PROTOCOL Performed By: #### L 501.080 ####[facility] [address] [place], [address] FINGERSTICK GLU 244 mg/dL High [address] [place] [address] Comment on above: Result Comment: BRISA GEMENT OF PATIENT CARE PER NURSING PROTOCOL Performed By: #### L 501.080 ####[facility] [address] [place], [address] FINGERSTICK GLU 264 mg/dL High [address] [place] [address] Comment on above: Result Comment: BRISA GEMENT OF PATIENT CARE PER NURSING PROTOCOL Performed By: #### L 501.080 ####[facility] [address] [place], [address] Serum or plasma vancomycin l evel (mass/volume)Ordered By: Maria Guadalupe Shore on 09-08-2024 Vancomycin [Mass/Vol] 16.5 ug/mL High 0.0-15.0 [facility] Vancomycin [Mass/Vol]Ordered By: Maria Guadalupe Shore on 09-08-2024 Random Vancomycin Level 16.5 ug/mL High 0.0-15.0 [facility] Comment on above: VANCOMYCIN STANDARD DRUG THERAPY: CRITICAL VALUE IS > 15.0 mg/L VANCOMYCIN HIGH INTENSITY THERAPY: CRITICAL VALUE IS > 20.0 mg/L PLEASE CONTACT PHARMACY SERVICES (#[id number]) FOR INTERPRETATIONOF RESULTS. THIS RESULT DOES NOT REPRESENT A PEAK OR TROUGHLEVEL FOR THIS DRUG. Serum or plasma vancomycin level (mass/volume) 16.5 ug/mL High 0.0-15.0 [facility] Vancomycin, Random Levelon 0 09-08-2024 VANCO, RANDOM 16.5 ug/mL High 0.0-15.0 [facility] Comment on above: Result Comment: VANC OMYCIN STANDARD DRUG THERAPY: CRITICAL VALUE IS > 15.0 mg/LVANCOMYCIN HIGH INTENSITY THERAPY: CRITICAL VALUE IS > 20.0 mg/LPLEASE CONTACT PHARMACY SERVICES (#1472) FOR INTERPRETATIONOF RESULTS. THIS RESULT DOES NOT REPRESENT A PEAK OR TROUGHLEVEL FOR THIS DRUG. Performed By: #### L 501.8850 ####[facility] [address] [place], [address] Absolute lymphocyte countOrd ered By: Anurag Irene on 09-07-2024 Lymphocytes Auto (Unsp spec) [#/Vol] 0.95 10*3/uL 0.83-4.51 [facility] Absolute neutrophil countOrd ered By: Anurag Irene on 09-07-2024 Neutrophils (Bld) [#/Vol] 13.3 10*3/uL High 2.0-7.7 [facility] Absolute neutrophil count 13.3 X10^3/uL High 2.0-7.7 [facility] Automated lymphocyte count a s percentage of total leukocytesOrdered By: Anurag Irene on 09-07-2024 Lymphocytes/100 WBC Auto (Unsp spec) 5.8 % Low 19-41 [facility] Basic Metabolic Profile (BMP )on 09-07-2024 BUN/CRE 13.6 RATIO Normal 10-20 [facility] Comment on above: Performed By: #### L 100.0100, L500.2500 ####[facility] [address] [place], [address] CA,Total 8.2 mg/dL Low 8.5-10.1 [facility] Comment on above: Performed By: #### L 100.0100, L500.2500 ####[facility] [address] [place], [address] Chloride [Moles/Vol] 108 mmol/L High 98-107 [facility] Comment on above: Performed By: #### L 100.0100, L500.2500 ####[facility] [address] [place], [address] CO2 [Moles/Vol] 17.0 mmol/L Low 21.0-32.0 [facility] Comment on above: Performed By: #### L 100.0100, L500.2500 ####[facility] [address] [place], [address] Creatinine [Mass/Vol] 1.47 mg/dL High 0.70-1.30 [facility] Comment on above: Result Comment: The validity of the calculated GFR GFRAA in patients over70 years has not been determined. Clinical correlation isessential. Performed By: #### L 100.0100, L500.2500 ####[facility] [address] [place], [address] ECRCL 67.54 ml/min Normal [facility] Comment on above: Performed By: #### L 100.0100, L500.2500 ####[facility] [address] [place], [address] EST GFR - AA 63 mL/min Normal >60 [facility] Comment on above: Result Comment: Afri can Dutch GFR Calc Performed By: #### L 100.0100, L500.2500 ####[facility] [address] [place], [address] GAP 10 Normal 5-15 [facility] Comment on above: Performed By: #### L 100.0100, L500.2500 ####[facility] [address] [place], [address] GFR/1.73 sq M.predicted among non-blacks MDRD (S/P/Bld) [Vol rate/Area] 52 mL/min/{1.73_m2} Low >60 [facility] Comment on above: Result Comment: Non- GFR Calc Performed By: #### L 100.0100, L500.2500 ####[facility] [address] [place], [address] Glucose [Mass/Vol] 231 mg/dL High 74-106 [facility] Comment on above: Result Comment: Gluc ose result greater than or equal to 200 mg/dLsuggests DIABETES MELLITUS per A.D.A. criteria. Performed By: #### L 100.0100, L500.2500 ####[facility] [address] [place], [address] Potassium [Moles/Vol] 3.8 mmol/L Normal 3.5-5.1 [facility] Comment on above: Performed By: #### L 100.0100, L500.2500 ####[facility] [address] [place], [address] Sodium [Moles/Vol] 134 mmol/L Low 136-145 [facility] Comment on above: Performed By: #### L 100.0100, L500.2500 ####[facility] [address] [place], [address] Urea nitrogen [Mass/Vol] 20 mg/dL High 7-18 [facility] Comment on above: Performed By: #### L 100.0100, L500.2500 ####[facility] [address] [place], [address] Basophil percentageOrdered B y: Anuragleisa Irene on 09-07-2024 Basophils/100 WBC (Bld) 0.4 % 0-1 [facility] Basophil percentage 0.4 % 0-1 [facility] Bedside Glucoseon 09-07-2024 FINGERSTICK GLU 215 mg/dL High 74-106 [facility] Comment on above: Result Comment: BRISA GEMENT OF PATIENT CARE PER NURSING PROTOCOL Performed By: #### L 501.080 ####[facility] [address] [place], [address] FINGERSTICK GLU 201 mg/dL High 74-106 [facility] Comment on above: Result Comment: BRISA GEMENT OF PATIENT CARE PER NURSING PROTOCOL Performed By: #### L 501.080 ####[facility] [address] [place], [address] FINGERSTICK GLU 197 mg/dL High 74-106 [facility] Comment on above: Result Comment: BRISA GEMENT OF PATIENT CARE PER NURSING PROTOCOL Performed By: #### L 501.080 ####[facility] [address] [place], [address] FINGERSTICK GLU 268 mg/dL High 74-106 [facility] Comment on above: Result Comment: BRISA GEMENT OF PATIENT CARE PER NURSING PROTOCOL Performed By: #### L 501.080 ####[facility] [address] [place], [address] CBC W/Diff, Automatedon 02-0 4-2024 Absolute Lymph 0.95 X10 3/uL Normal 0.83-4.51 [facility] Comment on above: Performed By: #### L 100.0100, L500.2500 ####[facility] [address] [place], [address] Absolute Neut 13.3 X10 3/uL High 2.0-7.7 [facility] Comment on above: Performed By: #### L 100.0100, L500.2500 ####[facility] [address] [place], [address] Basophils/100 WBC (Bld) 0.4 % Normal 0-1 [facility] Comment on above: Performed By: #### L 100.0100, L500.2500 ####[facility] [address] [place], [address] Eosinophils/100 WBC (Bld) 3.0 % Normal 0-5 [facility] Comment on above: Performed By: #### L 100.0100, L500.2500 ####[facility] [address] [place], [address] Erythrocyte distribution width (RBC) [Ratio] 17.7 % High 11.6-14.6 [facility] Comment on above: Performed By: #### L 100.0100, L500.2500 ####[facility] [address] [place], [address] Hematocrit (Bld) [Volume fraction] 27.1 % Low 40-54 [facility] Comment on above: Performed By: #### L 100.0100, L500.2500 ####[facility] [address] [place], [address] Hemoglobin (Bld) [Mass/Vol] 9.0 g/dL Low 13.0-16.5 [facility] Comment on above: Performed By: #### L 100.0100, L500.2500 ####[facility] [address] [place], [address] IG% 1.400 High 0.0-0.9 [facility] Comment on above: Result Comment: IG% - Immature Granulocytes (promyelocytes, myelocytes andmetamyelocytes) > 1% indicates that a LEFT SHIFT is Present. Performed By: #### L 100.0100, L500.2500 ####[facility] [address] [place], [address] Lymphocytes/100 WBC (Bld) 5.8 % Low 19-41 [facility] Comment on above: Performed By: #### L 100.0100, L500.2500 ####[facility] [address] [place], [address] MCH (RBC) [Entitic mass] 29.0 pg Normal 27.0-32.0 [facility] Comment on above: Performed By: #### L 100.0100, L500.2500 ####[facility] [address] [place], [address] MCHC (RBC) [Mass/Vol] 33.2 g/dL Normal 32-36 [facility] Comment on above: Performed By: #### L 100.0100, L500.2500 ####[facility] [address] [place], [address] MCV (RBC) [Entitic vol] 87.4 fL Normal 80-94 [facility] Comment on above: Performed By: #### L 100.0100, L500.2500 ####[facility] [address] [place], [address] Monocytes/100 WBC (Bld) 8.6 % Normal 0-10 [facility] Comment on above: Performed By: #### L 100.0100, L500.2500 ####[facility] [address] [place], [address] Neutrophils/100 WBC (Bld) 80.8 % High 47-70 [facility] Comment on above: Performed By: #### L 100.0100, L500.2500 ####[facility] [address] [place], [address] Nucleated RBC (Bld) [#/Vol] 0 10*3/uL Normal 0-5 [facility] Comment on above: Performed By: #### L 100.0100, L500.2500 ####[facility] [address] [place], [address] Platelet mean volume (Bld) [Entitic vol] 11.8 fL Normal 6.2-12.0 [facility] Comment on above: Performed By: #### L 100.0100, L500.2500 ####[facility] [address] [place], [address] Platelets (Bld) [#/Vol] 121 10*3/uL Low 150-450 [facility] Comment on above: Performed By: #### L 100.0100, L500.2500 ####[facility] [address] [place], [address] RBC (Bld) [#/Vol] 3.10 10*6/uL Low 4.6-6.2 [facility] Comment on above: Performed By: #### L 100.0100, L500.2500 ####[facility] [address] [place], [address] RDW SD 50.3 fl High 35.1-43.9 [facility] Comment on above: Performed By: #### L 100.0100, L500.2500 ####[facility] [address] [place], [address] WBC (Bld) [#/Vol] 16.4 10*3/uL High 4.4-11.0 [facility] Comment on above: Performed By: #### L 100.0100, L500.2500 ####[facility] [address] [place], [address] Culture, Blood (WB)on 2024 CUB Normal [facility] Comment on above: Performed By: #### M 200.1000 ####[facility] [address] [place], [address] Eosinophil percentageOrdered By: Anurag Irene on 09-07-2024 Eosinophils/100 WBC (Bld) 3.0 % 0-5 [facility] Eosinophil percentage 3.0 % 0-5 [facility] Immature granulocytes/100 WB C Auto (Bld)Ordered By: Anurag Irene on 09-07-2024 Immature granulocytes/100 WBC (Bld) 1.400 % High 0.0-0.9 [facility] Comment on above: IG% - Immature Granu locytes (promyelocytes, myelocytes and metamyelocytes) > 1% indicates that a LEFT SHIFT is Present. Automated immature granulocyte percentage 1.400 % High 0.0-0.9 [facility] Lymphocytes Auto (Unsp spec) [#/Vol]Ordered By: Anurag Irene on 09-07-2024 Lymphocytes (Bld) [#/Vol] 0.95 10*3/uL 0.83-4.51 [facility] Absolute lymphocyte count 0.95 X10^3/uL 0.83-4.51 [facility] Lymphocytes/100 WBC Auto (Un sp spec)Ordered By: Anurag Irene on 09-07-2024 Lymphocytes/100 WBC (Bld) 5.8 % Low 19-41 [facility] Automated lymphocyte count as percentage of total leukocytes 5.8 % Low 19-41 [facility] Monocyte percentageOrdered B y: Anurag Irene on 09-07-2024 Monocytes/100 WBC (Bld) 8.6 % 0-10 [facility] Monocyte percentage 8.6 % 0-10 [facility] Neutrophil percentageOrdered By: Anurag Irene on 09-07-2024 Neutrophils/100 WBC (Bld) 80.8 % High 47-70 [facility] Neutrophil percentage 80.8 % High 47-70 [facility] Nucleated red blood cell per centageOrdered By: Anurag Irene on 09-07-2024 Nucleated RBC/100 WBC (Bld) [Ratio] 0 % 0-5 [facility] Nucleated red blood cell percentage 0 % 0-5 [facility] Urine Cultureon 09-07-2024 URC Normal [facility] Comment on above: Performed By: #### M 100.2206 ####[facility] [address] [place], [address] Vancomycin, Trough Levelon 0 09-07-2024 VANCO, TROUGH 24.9 ug/mL High 5.0-15.0 [facility] Comment on above: Order Comment: 2199 Result Comment: VANC OMYCIN STANDARED DRUG THERAPY TROUGH LEVEL: 5.0 - 15.0 mg/LVANCOMYCIN HIGH INTENSITY THERAPY TROUGH LEVEL: 15.0 - 20.0 mg/LHigh Intensity therapy recommended for serious lifethreatening infections include:- Odugehpqli-Avmcffulcrtp-Cddqvmouc (Ventilator/Healtcare Associated)-SepsisPLEASE CONTACT PHARMACY SERVICES (#8948) FOR INTERPRETATIONOF RESULTS. Performed By: #### L 501.8820 ####[facility] [address] [place], [address] BC GPC IDon 09-06-2024 BC GPC ID Normal [facility] Comment on above: Performed By: #### M 100.636, M200.1000 ####[facility] [address] [place], [address] Basic Metabolic Profile (BMP )on 09-06-2024 BUN/CRE 12.8 RATIO Normal 10-20 [facility] Comment on above: Performed By: #### L 500.2500, L100.0100 ####[facility] [address] [place], [address] CA,Total 8.5 mg/dL Normal 8.5-10.1 [facility] Comment on above: Performed By: #### L 500.2500, L100.0100 ####[facility] [address] [place], [address] Chloride [Moles/Vol] 107 mmol/L Normal 98-107 [facility] Comment on above: Performed By: #### L 500.2500, L100.0100 ####[facility] [address] [place], [address] CO2 [Moles/Vol] 14.0 mmol/L Low 21.0-32.0 [facility] Comment on above: Performed By: #### L 500.2500, L100.0100 ####[facility] [address] [place], [address] Creatinine [Mass/Vol] 1.72 mg/dL High 0.70-1.30 [facility] Comment on above: Result Comment: The validity of the calculated GFR GFRAA in patients over70 years has not been determined. Clinical correlation isessential. Performed By: #### L 500.2500, L100.0100 ####[facility] [address] [place], [address] ECRCL 57.25 ml/min Normal [facility] Comment on above: Performed By: #### L 500.2500, L100.0100 ####[facility] [address] [place], [address] EST GFR - AA 53 mL/min Low >60 [facility] Comment on above: Result Comment: Afri can Dutch GFR Calc Performed By: #### L 500.2500, L100.0100 ####[facility] [address] [place], [address] GAP 10 Normal 5-15 [facility] Comment on above: Performed By: #### L 500.2500, L100.0100 ####[facility] [address] [place], [address] GFR/1.73 sq M.predicted among non-blacks MDRD (S/P/Bld) [Vol rate/Area] 44 mL/min/{1.73_m2} Low >60 [facility] Comment on above: Result Comment: Non- GFR Calc Performed By: #### L 500.2500, L100.0100 ####[facility] [address] [place], [address] Glucose [Mass/Vol] 187 mg/dL High 74-106 [facility] Comment on above: Result Comment: Fast ing Glucose result greater than or equal to 126 mg/dLsuggests DIABETES MELLITUS per A.D.A. criteria. Performed By: #### L 500.2500, L100.0100 ####[facility] [address] [place], [address] Potassium [Moles/Vol] 4.3 mmol/L Normal 3.5-5.1 [facility] Comment on above: Performed By: #### L 500.2500, L100.0100 ####[facility] [address] [place], [address] Sodium [Moles/Vol] 131 mmol/L Low 136-145 [facility] Comment on above: Performed By: #### L 500.2500, L100.0100 ####[facility] [address] [place], [address] Urea nitrogen [Mass/Vol] 22 mg/dL High 7-18 [facility] Comment on above: Performed By: #### L 500.2500, L100.0100 ####[facility] [address] [place], [address] Bedside Glucoseon 09-06-2024 FINGERSTICK GLU 220 mg/dL High 74-106 [facility] Comment on above: Result Comment: BRISA GEMENT OF PATIENT CARE PER NURSING PROTOCOL Performed By: #### L 501.080 ####[facility] [address] [place], [address] FINGERSTICK GLU 195 mg/dL High 74-106 [facility] Comment on above: Result Comment: BRISA GEMENT OF PATIENT CARE PER NURSING PROTOCOL Performed By: #### L 501.080 ####[facility] [address] [place], [address] FINGERSTICK GLU 173 mg/dL High 74-106 [facility] Comment on above: Result Comment: BRISA GEMENT OF PATIENT CARE PER NURSING PROTOCOL Performed By: #### L 501.080 ####[facility] [address] [place], [address] FINGERSTICK GLU 201 mg/dL High 74-106 [facility] Comment on above: Result Comment: BRISA GEMENT OF PATIENT CARE PER NURSING PROTOCOL Performed By: #### L 501.080 ####[facility] [address] [place], [address] Blood cultureOrdered By: [place] Irene on 09-06-2024 Bacteria identified Cx Nom (Bld) No growth in 5 days. [facility] Blood culture No growth in 5 days. [facility] CBC W/Diff, Automatedon Absolute Lymph 1.13 X10 3/uL Normal 0.83-4.51 [facility] Comment on above: Order Comment: REDRA W. PREVIOUS SPECIMEN REJECTED DUE TOSPECIMEN BEING CLOTTED. 09/06/2446 Henry Jon Performed By: #### L 100.0100 ####[facility] [address] [place], [address] Absolute Neut 15.6 X10 3/uL High 2.0-7.7 [facility] Comment on above: Order Comment: REDRA W. PREVIOUS SPECIMEN REJECTED DUE TOSPECIMEN BEING CLOTTED. 09/06/2446 Henry Jon Performed By: #### L 100.0100 ####[facility] [address] [place], [address] Basophils/100 WBC (Bld) 0.3 % Normal 0-1 [facility] Comment on above: Order Comment: REDRA W. PREVIOUS SPECIMEN REJECTED DUE TOSPECIMEN BEING CLOTTED. 09/06/2446 Henry Jon Performed By: #### L 100.0100 ####[facility] [address] [place], [address] Eosinophils/100 WBC (Bld) 2.2 % Normal 0-5 [facility] Comment on above: Order Comment: REDRA W. PREVIOUS SPECIMEN REJECTED DUE TOSPECIMEN BEING CLOTTED. 09/06/2446 Henry Jon Performed By: #### L 100.0100 ####[facility] [address] [place], [address] Erythrocyte distribution width (RBC) [Ratio] 17.2 % High 11.6-14.6 [facility] Comment on above: Order Comment: REDRA W. PREVIOUS SPECIMEN REJECTED DUE TOSPECIMEN BEING CLOTTED. 09/06/24845 Henry Jon Performed By: #### L 100.0100 ####[facility] [address] [place], [address] Hematocrit (Bld) [Volume fraction] 26.9 % Low 40-54 [facility] Comment on above: Order Comment: REDRA W. PREVIOUS SPECIMEN REJECTED DUE TOSPECIMEN BEING CLOTTED. 09/06/24845 Henry Jon Performed By: #### L 100.0100 ####[facility] [address] [place], [address] Hemoglobin (Bld) [Mass/Vol] 9.0 g/dL Low 13.0-16.5 [facility] Comment on above: Order Comment: REDRA W. PREVIOUS SPECIMEN REJECTED DUE TOSPECIMEN BEING CLOTTED. 09/06/24845 Henry Jon Performed By: #### L 100.0100 ####[facility] [address] [place], [address] IG% 1.200 High 0.0-0.9 [facility] Comment on above: Order Comment: REDRA W. PREVIOUS SPECIMEN REJECTED DUE TOSPECIMEN BEING CLOTTED. 09/06/24845 Henry Jon Result Comment: IG% - Immature Granulocytes (promyelocytes, myelocytes andmetamyelocytes) > 1% indicates that a LEFT SHIFT is Present. Performed By: #### L 100.0100 ####[facility] [address] [place], [address] Lymphocytes/100 WBC (Bld) 6.0 % Low 19-41 [facility] Comment on above: Order Comment: REDRA W. PREVIOUS SPECIMEN REJECTED DUE TOSPECIMEN BEING CLOTTED. 09/06/24845 Henry Jon Performed By: #### L 100.0100 ####[facility] [address] [place], [address] MCH (RBC) [Entitic mass] 29.4 pg Normal 27.0-32.0 [facility] Comment on above: Order Comment: REDRA W. PREVIOUS SPECIMEN REJECTED DUE TOSPECIMEN BEING CLOTTED. 09/06/2446 Henry Jon Performed By: #### L 100.0100 ####[facility] [address] [place], [address] MCHC (RBC) [Mass/Vol] 33.5 g/dL Normal 32-36 [facility] Comment on above: Order Comment: REDRA W. PREVIOUS SPECIMEN REJECTED DUE TOSPECIMEN BEING CLOTTED. 09/06/2446 Henry Jon Performed By: #### L 100.0100 ####[facility] [address] [place], [address] MCV (RBC) [Entitic vol] 87.9 fL Normal 80-94 [facility] Comment on above: Order Comment: REDRA W. PREVIOUS SPECIMEN REJECTED DUE TOSPECIMEN BEING CLOTTED. 09/06/2446 Henry Jon Performed By: #### L 100.0100 ####[facility] [address] [place], [address] Monocytes/100 WBC (Bld) 7.4 % Normal 0-10 [facility] Comment on above: Order Comment: REDRA W. PREVIOUS SPECIMEN REJECTED DUE TOSPECIMEN BEING CLOTTED. 09/06/2446 Henry Jon Performed By: #### L 100.0100 ####[facility] [address] [place], [address] Neutrophils/100 WBC (Bld) 82.9 % High 47-70 [facility] Comment on above: Order Comment: REDRA W. PREVIOUS SPECIMEN REJECTED DUE TOSPECIMEN BEING CLOTTED. 09/06/2446 Henry Jon Performed By: #### L 100.0100 ####[facility] [address] [place], [address] Nucleated RBC (Bld) [#/Vol] 0 10*3/uL Normal 0-5 [facility] Comment on above: Order Comment: REDRA W. PREVIOUS SPECIMEN REJECTED DUE TOSPECIMEN BEING CLOTTED. 09/06/2446 Henry Calloway. Performed By: #### L 100.0100 ####[facility] [address] [place], [address] Platelet mean volume (Bld) [Entitic vol] 11.3 fL Normal 6.2-12.0 [facility] Comment on above: Order Comment: REDRA W. PREVIOUS SPECIMEN REJECTED DUE TOSPECIMEN BEING CLOTTED. 09/06/2446 Henry Calloway. Performed By: #### L 100.0100 ####[facility] [address] [place], [address] Platelets (Bld) [#/Vol] 114 10*3/uL Low 150-450 [facility] Comment on above: Order Comment: REDRA W. PREVIOUS SPECIMEN REJECTED DUE TOSPECIMEN BEING CLOTTED. 09/06/2446 Henry Jon Performed By: #### L 100.0100 ####[facility] [address] [place], [address] RBC (Bld) [#/Vol] 3.06 10*6/uL Low 4.6-6.2 [facility] Comment on above: Order Comment: REDRA W. PREVIOUS SPECIMEN REJECTED DUE TOSPECIMEN BEING CLOTTED. 09/06/2446 Henry Jon Performed By: #### L 100.0100 ####[facility] [address] [place], [address] RDW SD 50.1 fl High 35.1-43.9 [facility] Comment on above: Order Comment: REDRA W. PREVIOUS SPECIMEN REJECTED DUE TOSPECIMEN BEING CLOTTED. 09/06/2446 Henry Carranza Stoner. Performed By: #### L 100.0100 ####[facility] [address] [place], [address] WBC (Bld) [#/Vol] 18.8 10*3/uL High 4.4-11.0 [facility] Comment on above: Order Comment: REDRA W. PREVIOUS SPECIMEN REJECTED DUE TOSPECIMEN BEING CLOTTED. 09/06/2446 Henry R Stoner. Performed By: #### L 100.0100 ####[facility] [address] [place], [address] Absolute Neut Normal 2.0-7.7 [facility] Comment on above: Result Comment: This specimen has been REJECTED due to Laboratory criteria:Clotted.PHLEB STAFF has been notified of need of recollection.09/06/2445 Henry R Stoner Performed By: #### L 500.2500, L100.0100 ####[facility] [address] [place], [address] HCT Normal 40-54 [facility] Comment on above: Result Comment: This specimen has been REJECTED due to Laboratory criteria:Clotted.PHLEB STAFF has been notified of need of recollection.09/06/2445 Henry R Stoner Performed By: #### L 500.2500, L100.0100 ####[facility] [address] [place], [address] HGB Normal 13.0-16.5 [facility] Comment on above: Result Comment: This specimen has been REJECTED due to Laboratory criteria:Clotted.PHLEB STAFF has been notified of need of recollection.09/06/2445 Henry R Stoner Performed By: #### L 500.2500, L100.0100 ####[facility] [address] [place], [address] MCH Normal 27.0-32.0 [facility] Comment on above: Result Comment: This specimen has been REJECTED due to Laboratory criteria:Clotted.PHLEB STAFF has been notified of need of recollection.09/06/2445 Henry R Stoner Performed By: #### L 500.2500, L100.0100 ####[facility] [address] [place], [address] MCHC Normal 32-36 [facility] Comment on above: Result Comment: This specimen has been REJECTED due to Laboratory criteria:Clotted.PHLEB STAFF has been notified of need of recollection.09/06/2445 Henry R Stoner Performed By: #### L 500.2500, L100.0100 ####[facility] [address] [place], [address] MCV Normal 80-94 [facility] Comment on above: Result Comment: This specimen has been REJECTED due to Laboratory criteria:Clotted.PHLEB STAFF has been notified of need of recollection.09/06/2445 Henry R Stoner Performed By: #### L 500.2500, L100.0100 ####[facility] [address] [place], [address] NEUT% Normal 47-70 [facility] Comment on above: Result Comment: This specimen has been REJECTED due to Laboratory criteria:Clotted.PHLEB STAFF has been notified of need of recollection.09/06/2445 Henry R Stoner Performed By: #### L 500.2500, L100.0100 ####[facility] [address] [place], [address] PLT Normal 150-450 [facility] Comment on above: Result Comment: This specimen has been REJECTED due to Laboratory criteria:Clotted.PHLEB STAFF has been notified of need of recollection.09/06/2445 Henry R Stoner Performed By: #### L 500.2500, L100.0100 ####[facility] [address] [place], [address] RBC Normal 4.6-6.2 [facility] Comment on above: Result Comment: This specimen has been REJECTED due to Laboratory criteria:Clotted.PHLEB STAFF has been notified of need of recollection.09/06/2445 Henry R Stoner Performed By: #### L 500.2500, L100.0100 ####[facility] [address] [place], [address] RDW CV Normal 11.6-14.6 [facility] Comment on above: Result Comment: This specimen has been REJECTED due to Laboratory criteria:Clotted.PHLEB STAFF has been notified of need of recollection.09/06/2445 Henry R Stoner Performed By: #### L 500.2500, L100.0100 ####[facility] [address] [place], [address] RDW SD Normal 35.1-43.9 [facility] Comment on above: Result Comment: This specimen has been REJECTED due to Laboratory criteria:Clotted.PHLEB STAFF has been notified of need of recollection.09/06/2445 Henry R Stoner Performed By: #### L 500.2500, L100.0100 ####[facility] [address] [place], [address] WBC Normal 4.4-11.0 [facility] Comment on above: Result Comment: This specimen has been REJECTED due to Laboratory criteria:Clotted.PHLEB STAFF has been notified of need of recollection.09/06/2445 Henry R Stoner Performed By: #### L 500.2500, L100.0100 ####[facility] [address] [place], [address] Absolute Neut Normal 2.0-7.7 [facility] Comment on above: Result Comment: Canc elled via OM: Order cancelled - Patient discharged Performed By: #### L 100.0100 ####[facility] [address] [place], [address] HCT Normal 40-54 [facility] Comment on above: Result Comment: Canc elled via OM: Order cancelled - Patient discharged Performed By: #### L 100.0100 ####[facility] [address] [place], [address] HGB Normal 13.0-16.5 [facility] Comment on above: Result Comment: Canc elled via OM: Order cancelled - Patient discharged Performed By: #### L 100.0100 ####[facility] [address] [place], [address] MCH Normal 27.0-32.0 [facility] Comment on above: Result Comment: Canc elled via OM: Order cancelled - Patient discharged Performed By: #### L 100.0100 ####[facility] [address] [place], [address] MCHC Normal 32-36 [facility] Comment on above: Result Comment: Canc elled via OM: Order cancelled - Patient discharged Performed By: #### L 100.0100 ####[facility] [address] [place], [address] MCV Normal 80-94 [facility] Comment on above: Result Comment: Canc elled via OM: Order cancelled - Patient discharged Performed By: #### L 100.0100 ####[facility] [address] [place], [address] NEUT% Normal 47-70 [facility] Comment on above: Result Comment: Canc elled via OM: Order cancelled - Patient discharged Performed By: #### L 100.0100 ####[facility] [address] [place], [address] PLT Normal 150-450 [facility] Comment on above: Result Comment: Canc elled via OM: Order cancelled - Patient discharged Performed By: #### L 100.0100 ####[facility] [address] [place], [address] RBC Normal 4.6-6.2 [facility] Comment on above: Result Comment: Canc elled via OM: Order cancelled - Patient discharged Performed By: #### L 100.0100 ####[facility] [address] [place], [address] RDW CV Normal 11.6-14.6 [facility] Comment on above: Result Comment: Canc elled via OM: Order cancelled - Patient discharged Performed By: #### L 100.0100 ####[facility] [address] [place], [address] RDW SD Normal 35.1-43.9 [facility] Comment on above: Result Comment: Canc elled via OM: Order cancelled - Patient discharged Performed By: #### L 100.0100 ####[facility] [address] [place], [address] WBC Normal 4.4-11.0 [facility] Comment on above: Result Comment: Canc elled via OM: Order cancelled - Patient discharged Performed By: #### L 100.0100 ####[facility] [address] [place], [address] Consultation - Infectious Dx on 09-06-2024 Consultation - Infectious Dx Normal [facility] Consultation - Nephrologyon 09-06-2024 Consultation - Nephrology Normal [facility] Culture, Blood (WB)on 2024 CUB Blood cultures x2, f rom two different sites GRAM POSITIVE COCCI RESULTS CALLED TO BAKARI PRADHAN 09/05/241945 Noreen Mendoza. REPORT READ BACK BY SAME. REFER TO [id number] FOR ID AND SENSITIVITY Normal [facility] Comment on above: Performed By: #### M 100.636, M200.1000 ####[facility] [address] [place], [address] Hemoglobin A1con 09-06-2024 HbA1c (Bld) [Mass fraction] 7.3 % High 3.8-5.6 [facility] Comment on above: Result Comment: Norm al < 5.7 % Prediabetic 5.7 - 6.4 % Diabetic >or= 6.5 % Please note range changes. Performed By: #### L 501.9985, L501.2620 ####[facility] [address] [place], [address] Vitamin B12on 09-06-2024 Cobalamin (Vitamin B12) [Mass/Vol] pg/mL High 211-911 [facility] Comment on above: Performed By: #### L 503.0105, L501.9100, L506.0250 ####[facility] [address] [place], [address] Alcohol, Blood (Medical)-Ser umon 09-05-2024 SERUM ETOH 4.0 mg/dL Normal [facility] Comment on above: Result Comment: The serum:whole blood ethanol ratio is approximately 1.14and varies slightly with hematocrit.Medical Alcohol reference interval and critical value innon-tolerant individuals; 50 - 100 Impairment 100 Intoxication 100 - 250 Severe Poisoning 250 - 400 Deep/possible fatal coma Performed By: #### L 503.0105, L501.9100, L506.0250 ####[facility] [address] [place], [address] Bedside Glucoseon 09-05-2024 FINGERSTICK GLU 169 mg/dL High 74-106 [facility] Comment on above: Result Comment: BRISA GEMENT OF PATIENT CARE PER NURSING PROTOCOL Performed By: #### L 501.080 ####[facility] [address] [place], [address] FINGERSTICK GLU 166 mg/dL High 74-106 [facility] Comment on above: Result Comment: BRISA GEMENT OF PATIENT CARE PER NURSING PROTOCOL Performed By: #### L 501.080 ####[facility] [address] [place], [address] FINGERSTICK GLU 226 mg/dL High 74-106 [facility] Comment on above: Result Comment: BRISA MOROCHO OF PATIENT CARE PER NURSING PROTOCOL Performed By: #### L 501.080 ####[facility] [address] [place], [place], [address] Blood cultureOrdered By: Shi Joiner on 09-05-2024 Bacteria identified Cx Nom (Bld) Staphylococcus epidermidis Abnormal [facility] Blood culture Staphylococcus epidermidis Abnormal [facility] Consultation - Intensiviston 09-05-2024 Consultation - General Internist And Physician Leader Normal [facility] Consultation - Urologyon Consultation - Urology Normal [facility] Folates, (Folic Acid)on FOLATES 30.10 ng/mL Normal 3.1-55.4 [facility] Comment on above: Order Comment: Has P atient had X-rays with Contrast this admission? NN Performed By: #### L 503.0105, L501.9100, L506.0250 ####[facility] [address] [place], [place], [address] Folic acid measurementOrdere d By: Hill Wright on 09-05-2024 Folate 30.10 ng/mL 3.1-55.4 [facility] Folic acid measurement 30.10 ng/mL 3.1-55.4 [facility] H AND P Exam - Hospitaliston 09-05-2024 H&P Exam - Hospitalist Normal [facility] Lactic Acidon 09-05-2024 Lactate [Moles/Vol] 2.3 mmol/L Invalid Interpretation Code 0.4-1.9 [facility] Comment on above: Order Comment: Y Result Comment: Crit ical Result(s) Called at: 08:26:40 09/05/2024 by:Bakari jenkins [facility]. Results read back by same. Performed By: #### L 503.6005 ####[facility] [address] [place], [place], [address] Lactate [Moles/Vol] 3.2 mmol/L Invalid Interpretation Code 0.4-1.9 [facility] Comment on above: Order Comment: Y Result Comment: Crit ical Result(s) Called at: 06:13:06 09/05/2024 by:Bakari Haque to [employer]. Results read back by same. Performed By: #### L 503.6005 ####[facility] [address] [place], [place], [address] Lactic acid measurementOrder ed By: Hill Wright on 09-05-2024 Lactate [Moles/Vol] 2.3 mmol/L High 0.4-2.0 [facility] Comment on above: Critical Result(s) C alled at: 08:26:40 09/05/2024 by: Bakari Garcia. Results read back by same. Lactic acid measurement 2.3 mmol/L High 0.4-2.0 [facility] Operative Reporton Operative Report Normal [facility] PSA,Total - Annual Screenon 09-05-2024 PSA,TOT SCREEN 1.41 ng/mL Normal 0.00-4.00 [facility] Comment on above: Result Comment: This test was performed using the TPSA assay method for theEveryclick chemistry system. Values obtained with differentassay methods cannot be used interchangably.When changing PSA assays in the course of monitoring apatient, additional sequential testing should be carriedout to confirm baseline values. Performed By: #### L 501.9910 ####[facility] [address] [place], [place], [address] Serum ethanol measurementOrd ered By: Hill Wright on 09-05-2024 Ethyl Alcohol Level 4.0 mg/dL [facility] Comment on above: The serum:whole bloo d ethanol ratio is approximately 1.14and varies slightly with hematocrit. Medical Alcohol reference interval and critical value innon-tolerant individuals; 50 - 100 Impairment 100 Intoxication 100 - 250 Severe Poisoning 250 - 400 Deep/possible fatal coma Serum ethanol measurement 4.0 mg/dL [facility] Thyroid Stim Hormone (TSH)on 09-05-2024 TSH 0.826 uIU/mL Normal 0.358-3.740 [facility] Comment on above: Performed By: #### L 501.9985, L501.9520 ####[facility] [address] [place], [address] Vitamin B12 measurementOrder ed By: Hill Wright on 09-05-2024 Vitamin B12 Level > 2000 pg/mL High 211-911 [facility] Vitamin B12 measurement > 2000 pg/mL High 211-911 [facility] ALP [Catalytic activity/Vol] Ordered By: Rachel Joiner on 09-04-2024 Serum or plasma alkaline phosphatase measurement 269 U/L High 45-117 [facility] ALT [Catalytic activity/Vol] Ordered By: Rachel Joiner on 09-04-2024 Serum or plasma alanine aminotransferase (ALT) measurement 79 U/L High 16-61 [facility] Abdomen/Pelvis without Conto n 09-04-2024 Abdomen/Pelvis without Cont Normal [facility] Albumin [Mass/Vol]Ordered By : Rachel Joiner on 09-04-2024 Serum or plasma albumin measurement (mass/volume) 2.0 g/dL Low 3.2-5.0 [facility] Ammoniaon 09-04-2024 Ammonia (P) [Moles/Vol] 26.0 umol/L Normal 11-32 [facility] Comment on above: Performed By: #### L 100.0100, L500.2500, L503.5510, L500.3400 ####[facility] [address] [place], [address] Basic Metabolic Profile (BMP )on 09-04-2024 BUN/CRE 12.1 RATIO Normal 10-20 [facility] Comment on above: Performed By: #### L 100.0100, L500.2500, L503.5510, L500.3400 ####[facility] [address] [place], [address] CA,Total 8.5 mg/dL Normal 8.5-10.1 [facility] Comment on above: Performed By: #### L 100.0100, L500.2500, L503.5510, L500.3400 ####[facility] [address] [place], [address] Chloride [Moles/Vol] 104 mmol/L Normal 98-107 [facility] Comment on above: Performed By: #### L 100.0100, L500.2500, L503.5510, L500.3400 ####[facility] [address] [place], [address] CO2 [Moles/Vol] 18.0 mmol/L Low 21.0-32.0 [facility] Comment on above: Performed By: #### L 100.0100, L500.2500, L503.5510, L500.3400 ####[facility] [address] [place], [address] Creatinine [Mass/Vol] 1.82 mg/dL High 0.70-1.30 [facility] Comment on above: Result Comment: The validity of the calculated GFR GFRAA in patients over70 years has not been determined. Clinical correlation isessential. Performed By: #### L 100.0100, L500.2500, L503.5510, L500.3400 ####[facility] [address] [place], [address] ECRCL 53.57 ml/min Normal [facility] Comment on above: Performed By: #### L 100.0100, L500.2500, L503.5510, L500.3400 ####[facility] [address] [place], [address] EST GFR - AA 49 mL/min Low >60 [facility] Comment on above: Result Comment: Afri can Dutch GFR Calc Performed By: #### L 100.0100, L500.2500, L503.5510, L500.3400 ####[facility] [address] [place], [address] GAP 10 Normal 5-15 [facility] Comment on above: Performed By: #### L 100.0100, L500.2500, L503.5510, L500.3400 ####[facility] [address] [place], [address] GFR/1.73 sq M.predicted among non-blacks MDRD (S/P/Bld) [Vol rate/Area] 41 mL/min/{1.73_m2} Low >60 [facility] Comment on above: Result Comment: Non- GFR Calc Performed By: #### L 100.0100, L500.2500, L503.5510, L500.3400 ####[facility] [address] [place], [address] Glucose [Mass/Vol] 252 mg/dL High 74-106 [facility] Comment on above: Result Comment: Gluc ose result greater than or equal to 200 mg/dLsuggests DIABETES MELLITUS per A.D.A. criteria. Performed By: #### L 100.0100, L500.2500, L503.5510, L500.3400 ####[facility] [address] [place], [address] Potassium [Moles/Vol] 4.0 mmol/L Normal 3.5-5.1 [facility] Comment on above: Performed By: #### L 100.0100, L500.2500, L503.5510, L500.3400 ####[facility] [address] [place], [address] Sodium [Moles/Vol] 132 mmol/L Low 136-145 [facility] Comment on above: Performed By: #### L 100.0100, L500.2500, L503.5510, L500.3400 ####[facility] [address] [place], [address] Urea nitrogen [Mass/Vol] 22 mg/dL High 7-18 [facility] Comment on above: Performed By: #### L 100.0100, L500.2500, L503.5510, L500.3400 ####[facility] [address] [place], [address] BUN Normal 7-18 [facility] Comment on above: Result Comment: Canc elled via OM: Order cancelled - Patient discharged Performed By: #### L 500.2500 ####[facility] [address] [place], [address] BUN/CRE Normal 10-20 [facility] Comment on above: Result Comment: Canc elled via OM: Order cancelled - Patient discharged Performed By: #### L 500.2500 ####[facility] [address] [place], [address] CA,Total Normal 8.5-10.1 [facility] Comment on above: Result Comment: Canc elled via OM: Order cancelled - Patient discharged Performed By: #### L 500.2500 ####[facility] [address] [place], [address] CL Normal 98-107 [facility] Comment on above: Result Comment: Canc elled via OM: Order cancelled - Patient discharged Performed By: #### L 500.2500 ####[facility] [address] [place], [address] CO2 Normal 21.0-32.0 [facility] Comment on above: Result Comment: Canc elled via OM: Order cancelled - Patient discharged Performed By: #### L 500.2500 ####[facility] [address] [place], [address] CREAT,SERUM Normal 0.70-1.30 [facility] Comment on above: Result Comment: Canc elled via OM: Order cancelled - Patient discharged Performed By: #### L 500.2500 ####[facility] [address] [place], [address] EST GFR Normal >60 [facility] Comment on above: Result Comment: Canc elled via OM: Order cancelled - Patient discharged Performed By: #### L 500.2500 ####[facility] [address] [place], [address] EST GFR - AA Normal >60 [facility] Comment on above: Result Comment: Canc elled via OM: Order cancelled - Patient discharged Performed By: #### L 500.2500 ####[facility] [address] [place], [address] GAP Normal 5-15 [facility] Comment on above: Result Comment: Canc elled via OM: Order cancelled - Patient discharged Performed By: #### L 500.2500 ####[facility] [address] [place], [address] GLU Normal 74-106 [facility] Comment on above: Result Comment: Canc elled via OM: Order cancelled - Patient discharged Performed By: #### L 500.2500 ####[facility] [address] [place], [address] Potassium Normal 3.5-5.1 [facility] Comment on above: Result Comment: Canc elled via OM: Order cancelled - Patient discharged Performed By: #### L 500.2500 ####[facility] [address] [place], [address] Basic Metabolic Profile (BMP) Normal 136-145 [facility] Comment on above: Result Comment: Canc elled via OM: Order cancelled - Patient discharged Performed By: #### L 500.2500 ####[facility] [address] [place], [address] Bedside Glucoseon 09-04-2024 FINGERSTICK GLU 247 mg/dL High 74-106 [facility] Comment on above: Result Comment: BRISA MOROCHO OF PATIENT CARE PER NURSING PROTOCOL Performed By: #### L 501.080 ####[facility] [address] [place], [address] Bilirubin Test strip Ql (U)O rdered By: Rachel Joiner on 09-04-2024 Bilirubin Ql (U) 1 mg/dL High Negative [facility] Comment on above: COLOR OF URINE MAY A FFECT DIPSTICK RESULTS. Bilirubin directOrdered By: Rachel Joiner on 09-04-2024 Bilirubin.direct [Mass/Vol] 1.80 mg/dL High 0.00-0.30 [facility] Bilirubin, totalOrdered By: Rachel Joiner on 09-04-2024 Bilirubin [Mass/Vol] 3.10 mg/dL High 0.20-1.00 [facility] Comment on above: For patients on eltr ombopag therapy, use of Dimension Stewart TBIL is not recommended. Bilirubin, total 3.10 mg/dL High 0.20-1.00 [facility] Bilirubin.direct [Mass/Vol]O rdered By: Rachel Joiner on 09-04-2024 Bilirubin direct 1.80 mg/dL High 0.00-0.30 [facility] Blood cultureOrdered By: Sih Jioner on 09-04-2024 Bacteria identified Cx Nom (Bld) [facility] CBC W/Diff, Automatedon Absolute Lymph 0.98 X10 3/uL Normal 0.83-4.51 [facility] Comment on above: Performed By: #### L 100.0100, L500.2500, L503.5510, L500.3400 ####[facility] [address] [facility] [place], [address] Absolute Neut 16.1 X10 3/uL High 2.0-7.7 [facility] Comment on above: Performed By: #### L 100.0100, L500.2500, L503.5510, L500.3400 ####[facility] [address] [place], [address] Basophils/100 WBC (Bld) 0.3 % Normal 0-1 [facility] Comment on above: Performed By: #### L 100.0100, L500.2500, L503.5510, L500.3400 ####[facility] [address] [place], [address] Eosinophils/100 WBC (Bld) 0.9 % Normal 0-5 [facility] Comment on above: Performed By: #### L 100.0100, L500.2500, L503.5510, L500.3400 ####[facility] [address] [place], [address] Erythrocyte distribution width (RBC) [Ratio] 15.9 % High 11.6-14.6 [facility] Comment on above: Performed By: #### L 100.0100, L500.2500, L503.5510, L500.3400 ####[facility] [address] [place], [address] Hematocrit (Bld) [Volume fraction] 28.5 % Low 40-54 [facility] Comment on above: Performed By: #### L 100.0100, L500.2500, L503.5510, L500.3400 ####[facility] [address] [place], [address] Hemoglobin (Bld) [Mass/Vol] 9.4 g/dL Low 13.0-16.5 [facility] Comment on above: Performed By: #### L 100.0100, L500.2500, L503.5510, L500.3400 ####[facility] [address] [place], [address] IG% 1.500 High 0.0-0.9 [facility] Comment on above: Result Comment: IG% - Immature Granulocytes (promyelocytes, myelocytes andmetamyelocytes) > 1% indicates that a LEFT SHIFT is Present. Performed By: #### L 100.0100, L500.2500, L503.5510, L500.3400 ####[facility] [address] [place], [address] Lymphocytes/100 WBC (Bld) 5.1 % Low 19-41 [facility] Comment on above: Performed By: #### L 100.0100, L500.2500, L503.5510, L500.3400 ####[facility] [address] [place], [address] MCH (RBC) [Entitic mass] 28.6 pg Normal 27.0-32.0 [facility] Comment on above: Performed By: #### L 100.0100, L500.2500, L503.5510, L500.3400 ####[facility] [address] [place], [address] MCHC (RBC) [Mass/Vol] 33.0 g/dL Normal 32-36 [facility] Comment on above: Performed By: #### L 100.0100, L500.2500, L503.5510, L500.3400 ####[facility] [address] [place], [address] MCV (RBC) [Entitic vol] 86.6 fL Normal 80-94 [facility] Comment on above: Performed By: #### L 100.0100, L500.2500, L503.5510, L500.3400 ####[facility] [address] [place], [address] Monocytes/100 WBC (Bld) 7.9 % Normal 0-10 [facility] Comment on above: Performed By: #### L 100.0100, L500.2500, L503.5510, L500.3400 ####[facility] [address] [place], [address] Neutrophils/100 WBC (Bld) 84.3 % High 47-70 [facility] Comment on above: Performed By: #### L 100.0100, L500.2500, L503.5510, L500.3400 ####[facility] [address] [place], [address] Nucleated RBC (Bld) [#/Vol] 0 10*3/uL Normal 0-5 [facility] Comment on above: Performed By: #### L 100.0100, L500.2500, L503.5510, L500.3400 ####[facility] [address] [place], [address] Platelet mean volume (Bld) [Entitic vol] 12.0 fL Normal 6.2-12.0 [facility] Comment on above: Performed By: #### L 100.0100, L500.2500, L503.5510, L500.3400 ####[facility] [address] [place], [address] Platelets (Bld) [#/Vol] 103 10*3/uL Low 150-450 [facility] Comment on above: Performed By: #### L 100.0100, L500.2500, L503.5510, L500.3400 ####[facility] [address] [place], [address] RBC (Bld) [#/Vol] 3.29 10*6/uL Low 4.6-6.2 [facility] Comment on above: Performed By: #### L 100.0100, L500.2500, L503.5510, L500.3400 ####[facility] [address] [place], [address] RDW SD 48.6 fl High 35.1-43.9 [facility] Comment on above: Performed By: #### L 100.0100, L500.2500, L503.5510, L500.3400 ####[facility] [address] [place], [address] WBC (Bld) [#/Vol] 19.1 10*3/uL High 4.4-11.0 [facility] Comment on above: Performed By: #### L 100.0100, L500.2500, L503.5510, L500.3400 ####[facility] [address] [place], [address] Absolute Neut Normal 2.0-7.7 [facility] Comment on above: Result Comment: Canc elled via OM: Order cancelled - Patient discharged Performed By: #### L 100.0100 ####[facility] [address] [place], [address] HCT Normal 40-54 [facility] Comment on above: Result Comment: Canc elled via OM: Order cancelled - Patient discharged Performed By: #### L 100.0100 ####[facility] [address] [place], [address] HGB Normal 13.0-16.5 [facility] Comment on above: Result Comment: Canc elled via OM: Order cancelled - Patient discharged Performed By: #### L 100.0100 ####[facility] [address] [place], [address] MCH Normal 27.0-32.0 [facility] Comment on above: Result Comment: Canc elled via OM: Order cancelled - Patient discharged Performed By: #### L 100.0100 ####[facility] [address] [place], [address] MCHC Normal 32-36 [facility] Comment on above: Result Comment: Canc elled via OM: Order cancelled - Patient discharged Performed By: #### L 100.0100 ####[facility] [address] [place], [address] MCV Normal 80-94 [facility] Comment on above: Result Comment: Canc elled via OM: Order cancelled - Patient discharged Performed By: #### L 100.0100 ####[facility] [address] [place], [address] NEUT% Normal 47-70 [facility] Comment on above: Result Comment: Canc elled via OM: Order cancelled - Patient discharged Performed By: #### L 100.0100 ####[facility] [address] [place], [address] PLT Normal 150-450 [facility] Comment on above: Result Comment: Canc elled via OM: Order cancelled - Patient discharged Performed By: #### L 100.0100 ####[facility] [address] [place], [address] RBC Normal 4.6-6.2 [facility] Comment on above: Result Comment: Canc elled via OM: Order cancelled - Patient discharged Performed By: #### L 100.0100 ####[facility] [address] [place], [address] RDW CV Normal 11.6-14.6 [facility] Comment on above: Result Comment: Canc elled via OM: Order cancelled - Patient discharged Performed By: #### L 100.0100 ####[facility] [address] [place], [address] RDW SD Normal 35.1-43.9 [facility] Comment on above: Result Comment: Canc elled via OM: Order cancelled - Patient discharged Performed By: #### L 100.0100 ####[facility] [address] [place], [address] WBC Normal 4.4-11.0 [facility] Comment on above: Result Comment: Canc elled via OM: Order cancelled - Patient discharged Performed By: #### L 100.0100 ####[facility] [address] [place], [address] Clarity (U)Ordered By: Kaz Joiner on 09-04-2024 Urine clarity Clear Clear [facility] Color (U)Ordered By: Rachel Joiner on 09-04-2024 Urine color determination Yellow Yellow [facility] Emergency Department Summary on 09-04-2024 Emergency Department Summary Normal [facility] Epithelial cells.squamous LM Ql (Urine sed)Ordered By: Rachel Joiner on 09-04-2024 Epithelial cells.squamous LM.HPF (Urine sed) [#/Area] 0 /[HPF] 0-5 [facility] Glucose Ql (U)Ordered By: Brendan Joiner on 09-04-2024 Urine Glucose (UA) Normal mg/dl Normal [facility] Urine glucose detection Normal mg/dl Normal [facility] HbA1c (Bld) [Mass fraction]O rdered By: Hill Wright on 09-04-2024 Hemoglobin A1c percentage 7.3 % High 3.8-5.6 [facility] Hemoglobin A1c percentageOrd ered By: Hill Wright on 09-04-2024 HbA1c (Bld) [Mass fraction] 7.3 % High 3.8-5.6 [facility] Comment on above: Normal < 5.7 % Predi abetic 5.7 - 6.4 % Diabetic >or= 6.5 % Please note range changes. Ketones Test strip Ql (U)Ord ered By: Rachel Joiner on 09-04-2024 Ketones Ql (U) Negative Negative [facility] Laboratory - Chemistry and C hemistry - challengeOrdered By: Rachel Joiner on 09-04-2024 AST [Catalytic activity/Vol] 156 U/L High 15-37 [facility] Leukocyte esterase Test stri p Ql (U)Ordered By: Rachel Joiner on 09-04-2024 Urine leukocyte esterase detection by dipstick 100 /ul High Negative [facility] Liver Profileon 09-04-2024 Albumin [Mass/Vol] 2.0 g/dL Low 3.2-5.0 [facility] Comment on above: Performed By: #### L 100.0100, L500.2500, L503.5510, L500.3400 ####[facility] [address] [place], [address] ALK P 269 U/L High 45-117 [facility] Comment on above: Performed By: #### L 100.0100, L500.2500, L503.5510, L500.3400 ####[facility] [address] [place], [address] ALT [Catalytic activity/Vol] 79 U/L High 16-61 [facility] Comment on above: Performed By: #### L 100.0100, L500.2500, L503.5510, L500.3400 ####[facility] [address] [place], [address] AST [Catalytic activity/Vol] 156 U/L High 15-37 [facility] Comment on above: Performed By: #### L 100.0100, L500.2500, L503.5510, L500.3400 ####[facility] [address] [place], [address] Bilirubin [Mass/Vol] 3.10 mg/dL High 0.20-1.00 [facility] Comment on above: Result Comment: For patients on eltrombopag therapy, use of Dimension Stewart TBIL is not recommended. Performed By: #### L 100.0100, L500.2500, L503.5510, L500.3400 ####[facility] [address] [place], [address] Bilirubin.direct [Mass/Vol] 1.80 mg/dL High 0.00-0.30 [facility] Comment on above: Performed By: #### L 100.0100, L500.2500, L503.5510, L500.3400 ####[facility] [address] [place], [address] Globulin (S) [Mass/Vol] 4.1 g/dL Normal 2.2-4.2 [facility] Comment on above: Performed By: #### L 100.0100, L500.2500, L503.5510, L500.3400 ####[facility] [address] [place], [address] T PROT 6.1 g/dL Low 6.4-8.2 [facility] Comment on above: Performed By: #### L 100.0100, L500.2500, L503.5510, L500.3400 ####[facility] [address] [place], [address] Methadone, urineOrdered By: Rachel Joiner on 09-04-2024 Urine Methadone Screen Negative < 300 ng/mL [facility] Microorganism identified Cx Nom (Unsp spec)Ordered By: Rachel Joiner on 09-04-2024 Bacteria Detection (PCR) Staphylococcus epidermidis Abnormal [facility] Bacteria Detection (PCR) mecA Resistance Marker Abnormal [facility] Organism identification mecA Resistance Marker Abnormal [facility] Microscopic analysis of urin e for red blood cells (RBC)Ordered By: Rachel Joiner on 09-04-2024 Urine RBC 10-25 SEEN /hpf 0-5 [facility] Microscopic analysis of urine for red blood cells (RBC) 10-25 SEEN /hpf 0-5 [facility] Mucus LM Ql (Urine sed)Order ed By: Rachel Joiner on 09-04-2024 Mucus Ql (Urine sed) 0 SEEN /hpf [facility] Nitrite Test strip Ql (U)Ord ered By: Rachel Joiner on 09-04-2024 Nitrite Ql (U) Negative Negative [facility] No Panel InformationOrdered By: Rachel Joiner on 09-04-2024 156 U/L High 15-37 [facility] Urine Drug Screen Comment [facility] Comment on above: CONFIRMATORY TESTING FOR ALL POSITIVE URINE DRUG SCREENRESULTS WILL ONLY BE SENT OUT UPON PHYSICIAN ORDER. VISTA Urine Drug Screen methods provide only preliminaryanalytical test results. A more specific alternate chemicalmethod must be used in order to obtain a confirmedanalytical result. Gas chromatography/mass spectrometery(GC/MS) is the preferred confirmatory method. Clinicalconsideration and professional judgement should be appliedto any drug of abuse test result, particularly whenpreliminary positive results are used. URINE TCA TESTING MUST BE ORDERED SEPARATELY. USE TESTMNEMONIC: [facility] Organism identificationOrder ed By: Rachel Joiner on 09-04-2024 Microorganism identified Cx Nom (Unsp spec) Staphylococcus epidermidis Abnormal [facility] Microorganism identified Cx Nom (Unsp spec) mecA Resistance Marker Abnormal [facility] Protein Test strip Ql (U)Ord ered By: Rachel Joiner on 09-04-2024 Protein Ql (U) 30 mg/dl High Negative [facility] Urine protein assay by test strip, semi-quantitative 30 mg/dl High Negative [facility] Quantitative urine opiates m easurementOrdered By: Rachel Joiner on 09-04-2024 Opiates Ql (U) Positive High < 300 ng/mL [facility] Quantitative urine opiates measurement Positive High < 300 ng/mL [facility] Screening prostate specific antigen (PSA) measurementOrdered By: Hill Wright on 09-04-2024 Prostate Specific Antigen Screen 1.41 ng/mL 0.00-4.00 [facility] Comment on above: This test was perfor med using the TPSA assay method for [employer] chemistry system. Values obtained with differentassay methods cannot be used interchangably.When changing PSA assays in the course of monitoring apatient, additional sequential testing should be carriedout to confirm baseline values. Screening prostate specific antigen (PSA) measurement 1.41 ng/mL 0.00-4.00 [facility] Serum globulin measurementOr dered By: Rachel Joiner on 09-04-2024 Globulin (S) [Mass/Vol] 4.1 g/dL 2.2-4.2 [facility] Serum globulin measurement 4.1 g/dL 2.2-4.2 [facility] Serum or plasma alanine thomas otransferase (ALT) measurementOrdered By: Rachel Joiner on 09-04-2024 ALT [Catalytic activity/Vol] 79 U/L High 16-61 [facility] Serum or plasma albumin roosevelt urement (mass/volume)Ordered By: Rachel Joiner on 09-04-2024 Albumin [Mass/Vol] 2.0 g/dL Low 3.2-5.0 [facility] Serum or plasma alkaline kendrick sphatase measurementOrdered By: Rachel Joiner on 09-04-2024 ALP [Catalytic activity/Vol] 269 U/L High 45-117 [facility] Serum or plasma thyroid stim ulating hormone (TSH) measurement (units/volume)Ordered By: Hill Wright on 09-04-2024 TSH Qn 0.826 uIU/mL 0.358-3.740 [facility] Specific gravity (U) [Rel de nsity]Ordered By: Rachel Joiner on 09-04-2024 Urine specific gravity measurement 1.020 1.002-1.030 [facility] Squamous epithelial cells de tection in urine sediment by light microscopyOrdered By: Rachel Joiner on 09-04-2024 Epithelial cells.squamous LM Ql (Urine sed) 0 SEEN /hpf 0-5 [facility] Squamous epithelial cells detection in urine sediment by light microscopy 0 SEEN /hpf [facility] TSH QnOrdered By: Hill patino on 09-04-2024 Thyroid Stimulating Hormone (TSH) 0.826 uIU/mL 0.358-3.740 [facility] Serum or plasma thyroid stimulating hormone (TSH) measurement (units/volume) 0.826 uIU/mL 0.358-3.740 [facility] Total proteinOrdered By: Shi Joiner on 09-04-2024 Protein [Mass/Vol] 6.1 g/dL Low 6.4-8.2 [facility] Total protein 6.1 g/dL Low 6.4-8.2 [facility] Urinalysis, Completeon 09-04 WBC 5-10 SEEN Normal 0-5 [facility] Comment on above: Order Comment: BLADD ER TAP Result Comment: AMENDED REPORT 09/04/24 0246 WBC previously reported as: 0 SEEN /hpf Performed By: #### L 505.5000, L400.0001 ####[facility] [address] [place], [address] Urine Drug Screen (VISTA)on 09-04-2024 AMPHETAMINES Negative Normal <1000 ng/mL [facility] Comment on above: Performed By: #### L 505.5000, L400.0001 ####[facility] [address] [place], [address] BARBITIURATES Negative Normal < 200 ng/mL [facility] Comment on above: Performed By: #### L 505.5000, L400.0001 ####[facility] [address] [place] [id number] BENZODIAZIPINE Negative Normal < 200 ng/mL [facility] Comment on above: Performed By: #### L 505.5000, L400.0001 ####[facility] [address] [place] [id number] COCAINE Negative Normal < 300 ng/mL [facility] Comment on above: Performed By: #### L 505.5000, L400.0001 ####[facility] [address] [place] [id number] ECSTACY Negative Normal < 500 ng/mL [facility] Comment on above: Performed By: #### L 505.5000, L400.0001 ####[facility] [address] [place] [address] METHADONE Negative Normal < 300 ng/mL [facility] Comment on above: Performed By: #### L 505.5000, L400.0001 ####[facility] [address] [place] [address] OPIATES Positive Abnormal < 300 ng/mL [facility] Comment on above: Performed By: #### L 505.5000, L400.0001 ####[facility] [address] [place] [address] PCP Negative Normal < 25 ng/mL [facility] Comment on above: Performed By: #### L 505.5000, L400.0001 ####[facility] [address] [place] [id number] THC Negative Normal < 50 ng/mL [facility] Comment on above: Performed By: #### L 505.5000, L400.0001 ####[facility] [address] [place], [place], [address] VISTA UDS PH 5 Normal [facility] Comment on above: Performed By: #### L 505.5000, L400.0001 ####[facility] [address] [place], [address] Urine amphetamine measuremen tOrdered By: Rachel Joiner on 09-04-2024 Amphetamines Ql (U) Negative <1000 ng/mL [facility] Urine barbiturates measureme ntOrdered By: Rachel Joiner on 09-04-2024 Urine Barbiturates Screen Negative < 200 ng/mL [facility] Urine benzodiazepine levelOr dered By: Rachel Joiner on 09-04-2024 Benzodiazepines Ql (U) Negative < 200 ng/mL [facility] Urine blood detectionOrdered By: Rachel Joiner on 09-04-2024 Urine Occult Blood 150 /ul High Negative [facility] Urine blood detection 150 /ul High Negative [facility] Urine clarityOrdered By: Shi Joiner on 09-04-2024 Clarity (U) Clear Clear [facility] Urine cocaine levelOrdered B y: Rachel Joiner on 09-04-2024 Cocaine Ql (U) Negative < 300 ng/mL [facility] Urine color determinationOrd ered By: Rachel Joiner on 09-04-2024 Color (U) Yellow Yellow [facility] Urine cultureOrdered By: Hugo Wright on 09-04-2024 Bacteria identified Cx Nom (U) Staphylococcus epidermidis Abnormal [facility] Urine culture Staphylococcus epidermidis Abnormal [facility] Urine ykdzt-1-uxpymzpmebgmfb abinol (THC) measurementOrdered By: Rachel Joiner on 09-04-2024 Cannabinoids Screen Ql (U) Negative < 50 ng/mL [facility] Urine glucose detectionOrder ed By: Rachel Joiner on 09-04-2024 Glucose Ql (U) Normal mg/dl Normal [facility] Urine ketones detection by t est stripOrdered By: Rachel Joiner on 09-04-2024 Urine ketones detection by test strip Negative < 50 ng/mL [facility] Urine leukocyte esterase det ection by dipstickOrdered By: Rachel Joiner on 09-04-2024 Leukocyte esterase Test strip Ql (U) 100 /ul High Negative [facility] Urine methylenedioxymethamph etamine (MDMA) measurementOrdered By: Rachel Joiner on 09-04-2024 MDMA (Ecstasy) Screen Negative < 500 ng/mL [facility] Urine pHOrdered By: Rachel silva on 09-04-2024 pH (U) 6.0 [pH] 5.0 - 8.0 [facility] Urine phencyclidine (PCP) de tectionOrdered By: Rachel Joiner on 09-04-2024 Phencyclidine Ql (U) Negative < 25 ng/mL [facility] Urine sediment bacteria coun t by microscopy (number/high power field)Ordered By: Rachel Joiner on 09-04-2024 Bacteria LM.HPF (Urine sed) [#/Area] 0 /[HPF] None Seen [facility] Urine specific gravity measu rementOrdered By: Rachel Joiner on 09-04-2024 Specific gravity (U) [Rel density] 1.020 1.002-1.030 [facility] Urine total bilirubin detect ion by test stripOrdered By: Rachel Joiner on 09-04-2024 Urine total bilirubin detection by test strip 1 mg/dL High Normal [facility] Urine urobilinogen measureme ntOrdered By: Rachel Joiner on 09-04-2024 Urobilinogen Ql (U) 1 mg/dl High Normal [facility] Urobilinogen Ql (U)Ordered B y: Rachel Joiner on 09-04-2024 Urobilinogen (U) [Mass/Vol] 1 mg/dL High Normal [facility] Venous blood ammonia measure mentOrdered By: Rachel Joiner on 09-04-2024 Ammonia (P) [Moles/Vol] 26.0 umol/L [facility] Venous blood ammonia measurement 26.0 umol/L [facility] White blood cell countOrdere d By: Rachel Joiner on 09-04-2024 Urine WBC 5-10 SEEN /hpf 0-5 [facility] Comment on above: Previous reported re sult: 0 SEEN /hpfEdited by: DANIEL on 09/04/24:2337 AMENDED REPORT 09/04/242336 WBC previously reported as: 0 SEEN /hpf White blood cell count 5-10 SEEN /hpf 0-5 [facility] White blood cell count 5-10 SEEN /hpf 0-5 [facility] pH (U)Ordered By: Rachel lambert on 09-04-2024 Urine pH 6.0 5.0 - 8.0 [facility] Basic Metabolic Profile (BMP )on 09-03-2024 BUN Normal 7-18 [facility] Comment on above: Result Comment: Canc elled via OM: Order cancelled - Patient discharged Performed By: #### L 500.2500 ####[facility] [address] [place], [address] BUN/CRE Normal 10-20 [facility] Comment on above: Result Comment: Canc elled via OM: Order cancelled - Patient discharged Performed By: #### L 500.2500 ####[facility] [address] [place], [address] CA,Total Normal 8.5-10.1 [facility] Comment on above: Result Comment: Canc elled via OM: Order cancelled - Patient discharged Performed By: #### L 500.2500 ####[facility] [address] [place], [address] CL Normal 98-107 [facility] Comment on above: Result Comment: Canc elled via OM: Order cancelled - Patient discharged Performed By: #### L 500.2500 ####[facility] [address] [place], [address] CO2 Normal 21.0-32.0 [facility] Comment on above: Result Comment: Canc elled via OM: Order cancelled - Patient discharged Performed By: #### L 500.2500 ####[facility] [address] [place], [address] CREAT,SERUM Normal 0.70-1.30 [facility] Comment on above: Result Comment: Canc elled via OM: Order cancelled - Patient discharged Performed By: #### L 500.2500 ####[facility] [address] [place], [address] EST GFR Normal >60 [facility] Comment on above: Result Comment: Canc elled via OM: Order cancelled - Patient discharged Performed By: #### L 500.2500 ####[facility] [address] [place], [address] EST GFR - AA Normal >60 [facility] Comment on above: Result Comment: Canc elled via OM: Order cancelled - Patient discharged Performed By: #### L 500.2500 ####[facility] [address] [place], [address] GAP Normal 5-15 [facility] Comment on above: Result Comment: Canc elled via OM: Order cancelled - Patient discharged Performed By: #### L 500.2500 ####[facility] [address] [place], [address] GLU Normal 74-106 [facility] Comment on above: Result Comment: Canc elled via OM: Order cancelled - Patient discharged Performed By: #### L 500.2500 ####[facility] [address] [place], [address] Potassium Normal 3.5-5.1 [facility] Comment on above: Result Comment: Canc elled via OM: Order cancelled - Patient discharged Performed By: #### L 500.2500 ####[facility] [address] [place], [address] Basic Metabolic Profile (BMP) Normal 136-145 [facility] Comment on above: Result Comment: Canc elled via OM: Order cancelled - Patient discharged Performed By: #### L 500.2500 ####[facility] [address] [place], [address] Absolute lymphocyte countOrd ered By: Bola Meraz on 09-02-2024 Lymphocytes Auto (Unsp spec) [#/Vol] 1.04 10*3/uL 0.83-4.51 [facility] Absolute neutrophil countOrd ered By: Bola Meraz on 09-02-2024 Neutrophils (Bld) [#/Vol] 14.0 10*3/uL High 2.0-7.7 [facility] Absolute neutrophil count 14.0 X10^3/uL High 2.0-7.7 [facility] Automated blood erythrocyte countOrdered By: Bola Meraz on 09-02-2024 RBC (Bld) [#/Vol] 3.68 10*6/uL Low 4.6-6.2 [facility] Comment on above: Performed By: #### L 100.0100 ####[facility] [address] [place], [address] Automated blood hematocrit ( percentage)Ordered By: Bola Meraz on 09-02-2024 Hematocrit (Bld) [Volume fraction] 30.8 % Low 40-54 [facility] Comment on above: Performed By: #### L 100.0100 ####[facility] [address] [facility] [address] Automated lymphocyte count a s percentage of total leukocytesOrdered By: Bola Meraz on 09-02-2024 Lymphocytes/100 WBC (Bld) 6.3 % Low 19-41 [facility] Comment on above: Performed By: #### L 100.0100 ####[facility] [address] [place], [address] Lymphocytes/100 WBC Auto (Unsp spec) 6.3 % Low 19-41 [facility] Basic Metabolic Profile (BMP )on 09-02-2024 BUN/CRE 16.9 RATIO Normal 10-20 [facility] Comment on above: Performed By: #### L 500.2500 ####[facility] [address] [place], [address] CA,Total 8.9 mg/dL Normal 8.5-10.1 [facility] Comment on above: Performed By: #### L 500.2500 ####[facility] [address] [place], [address] ECRCL 37.67 ml/min Normal [facility] Comment on above: Performed By: #### L 500.2500 ####[facility] [address] [place], [address] EST GFR - AA 34 mL/min Low >60 [facility] Comment on above: Result Comment: Afri can Dutch GFR Calc Performed By: #### L 500.2500 ####[facility] [address] [place], [address] GAP 8 Normal 5-15 [facility] Comment on above: Performed By: #### L 500.2500 ####[facility] [address] [place], [address] Basophil percentageOrdered B y: Bola Meraz on 09-02-2024 Basophils/100 WBC (Bld) 0.4 % Normal 0-1 [facility] Comment on above: Performed By: #### L 100.0100 ####[facility] [address] [place], [address] Basophil percentage 0.4 % 0-1 [facility] Bedside Glucoseon 09-02-2024 FINGERSTICK GLU 168 mg/dL High 74-106 [facility] Comment on above: Result Comment: BRISA MOROCHO OF PATIENT CARE PER NURSING PROTOCOL Performed By: #### L 501.080 ####[facility] [address] [place], [address] Blood urea nitrogen (BUN)/cr eatinine ratioOrdered By: Bola Meraz on 09-02-2024 Urea nitrogen/Creatinine [Mass ratio] 16.9 mg/mg - [facility] Blood urea nitrogen (BUN)/creatinine ratio 16.9 RATIO - [facility] CBC W/Diff, Automatedon 08-06 Absolute Lymph 1.04 X10 3/uL Normal 0.83-4.51 [facility] Comment on above: Performed By: #### L 100.0100 ####[facility] [address] [place], [address] Absolute Neut 14.0 X10 3/uL High 2.0-7.7 [facility] Comment on above: Performed By: #### L 100.0100 ####[facility] [address] [place], [address] IG% 1.300 High 0.0-0.9 [facility] Comment on above: Result Comment: IG% - Immature Granulocytes (promyelocytes, myelocytes andmetamyelocytes) > 1% indicates that a LEFT SHIFT is Present. Performed By: #### L 100.0100 ####[facility] [address] [place], [address] Nucleated RBC (Bld) [#/Vol] 0 10*3/uL Normal 0-5 [facility] Comment on above: Performed By: #### L 100.0100 ####[facility] [address] [place], [address] RDW SD 47.0 fl High 35.1-43.9 [facility] Comment on above: Performed By: #### L 100.0100 ####[facility] [address] [place], [address] Calcium [Mass/Vol]Ordered By : Bola Meraz on 09-02-2024 Serum or plasma calcium measurement (mass/volume) 8.9 mg/dL 8.5-10.1 [facility] Carbon dioxide measurementOr dered By: Bola Meraz on 09-02-2024 CO2 [Moles/Vol] 19.0 mmol/L Low 21.0-32.0 [facility] Comment on above: Performed By: #### L 500.2500 ####[facility] [address] [place], [address] Carbon dioxide measurement 19.0 mmol/L Low 21.0-32.0 [facility] Chloride measurementOrdered By: Bola Meraz on 09-02-2024 Chloride [Moles/Vol] 107 mmol/L Normal 98-107 [facility] [facility] Comment on above: Performed By: #### L 500.2500 ####[facility] [address] [place], [address] Chloride measurement 107 mmol/L 98-107 [facility] Creatinine [Mass/Vol]Ordered By: Bola Meraz on 09-02-2024 Serum or plasma creatinine measurement (mass/volume) 2.54 mg/dL High 0.70-1.30 [facility] Discharge Instructionon --2024 Discharge Instruction Normal [facility] Eosinophil percentageOrdered By: Bola Meraz on 09-02-2024 Eosinophils/100 WBC (Bld) 1.3 % Normal 0-5 [facility] Comment on above: Performed By: #### L 100.0100 ####[facility] [address] [place], [address] Eosinophil percentage 1.3 % 0-5 [facility] Erythrocyte distribution wid th (RBC) [Ratio]Ordered By: Bola Meraz on 09-02-2024 Erythrocyte distribution width ratio 15.7 % High 11.6-14.6 [facility] Erythrocyte distribution width standard deviation 47.0 fl High 35.1-43.9 [facility] Erythrocyte distribution wid th ratioOrdered By: Bola Meraz on 09-02-2024 Erythrocyte distribution width (RBC) [Ratio] 15.7 % High 11.6-14.6 [facility] Comment on above: Performed By: #### L 100.0100 ####[facility] [address] [place], [address] Erythrocyte distribution wid th standard deviationOrdered By: Bola Meraz on 09-02-2024 Erythrocyte distribution width (RBC) [Entitic vol] 47.0 fL High 35.1-43.9 [facility] Erythrocyte distribution width (RBC) [Ratio] 47.0 fl High 35.1-43.9 [facility] Estimated glomerular filtrat ion rate (GFR) AmericanOrdered By: Bola Meraz on 09-02-2024 Estimated GFR (MDRD) Amer 34 mL/min Low >60 [facility] Comment on above: GFR Calc Estimated glomerular filtration rate (GFR) 34 mL/min Low >60 [facility] Estimation of creatinine carolina aranceOrdered By: Bola Meraz on 09-02-2024 Estimated Creatinine Clearance Calc 37.67 ml/min [facility] Estimation of creatinine clearance 37.67 ml/min [facility] Glomerular filtration rate ( GFR) estimationOrdered By: Bola Meraz on 09-02-2024 GFR/1.73 sq M.predicted among non-blacks MDRD (S/P/Bld) [Vol rate/Area] 28 mL/min/{1.73_m2} Low >60 [facility] Comment on above: Result Comment: Non- GFR Calc Performed By: #### L 500.2500 ####[facility] [address] [place], [place], [id number] Estimated GFR (MDRD) Non-Af Amer 28 mL/min Low >60 [facility] Comment on above: Non- GFR Calc Glomerular filtration rate (GFR) estimation 28 mL/min Low >60 [facility] Glucose measurementOrdered B y: Bola Meraz on 09-02-2024 Glucose [Mass/Vol] 187 mg/dL [facility] 74-106 [facility] Comment on above: Fasting Glucose resu lt greater than or equal to 126 mg/dL suggests DIABETES MELLITUS per A.D.A. criteria. Result Comment: Fast ing Glucose result greater than or equal to 126 mg/dLsuggests DIABETES MELLITUS per A.D.A. criteria. Performed By: #### L 500.2500 ####[facility] [address] [place], [place], [address] Glucose measurement 187 mg/dL High 74-106 [facility] deOrdered By: Rick Carlin on 09-02-2024 Bedside Glucose (Misc Panel) 168 mg/dL High 74-106 [facility] Comment on above: MANAGEMENT OF PATIEN T CARE PER NURSING PROTOCOL Glucose [Mass/Vol] 168 mg/dL High 74-106 [facility] Glucose measurement at bedside 168 mg/dL High 74-106 [facility] Hematocrit Auto (Bld) [Volum e fraction]Ordered By: Bola Meraz on 09-02-2024 Automated blood hematocrit (percentage) 30.8 % Low 40-54 [facility] Hemoglobin measurementOrdere d By: Bola Meraz on 09-02-2024 Hemoglobin (Bld) [Mass/Vol] 10.7 g/dL Low 13.0-16.5 [facility] Comment on above: Performed By: #### L 100.0100 ####[facility] [address] [place], [place], [id number] Hemoglobin measurement 10.7 g/dL Low 13.0-16.5 [facility] Immature granulocytes/100 WB C Auto (Bld)Ordered By: Bola Meraz on 09-02-2024 Immature granulocytes/100 WBC (Bld) 1.300 % High 0.0-0.9 [facility] Comment on above: IG% - Immature Granu locytes (promyelocytes, myelocytes and metamyelocytes) > 1% indicates that a LEFT SHIFT is Present. Automated immature granulocyte percentage 1.300 % High 0.0-0.9 [facility] Lymphocytes Auto (Unsp spec) [#/Vol]Ordered By: Bola Meraz on 09-02-2024 Lymphocytes (Bld) [#/Vol] 1.04 10*3/uL 0.83-4.51 [facility] Absolute lymphocyte count 1.04 X10^3/uL 0.83-4.51 [facility] Lymphocytes/100 WBC Auto (Un sp spec)Ordered By: Bola Meraz on 09-02-2024 Automated lymphocyte count as percentage of total leukocytes 6.3 % Low 19-41 [facility] MCV (RBC) [Entitic vol]Order ed By: Bola Meraz on 09-02-2024 MCV (mean corpuscular volume) determination 83.7 fL 80-94 [facility] MCV (mean corpuscular volume ) determinationOrdered By: Bola Meraz on 09-02-2024 MCV (RBC) [Entitic vol] 83.7 fL Normal 80-94 [facility] Comment on above: Performed By: #### L 100.0100 ####[facility] [address] [place], [address] Mean corpuscular hemoglobin (MCH) determinationOrdered By: Bola Meraz on 09-02-2024 MCH (RBC) [Entitic mass] 29.1 pg Normal 27.0-32.0 [facility] Comment on above: Performed By: #### L 100.0100 ####[facility] [address] [place], [address] Mean corpuscular hemoglobin (MCH) determination 29.1 pg 27.0-32.0 [facility] Mean corpuscular hemoglobin concentration (MCHC) determinationOrdered By: Bola Meraz on 09-02-2024 MCHC (RBC) [Mass/Vol] 34.7 g/dL Normal 32-36 [facility] Comment on above: Performed By: #### L 100.0100 ####[facility] [address] [place], [place], [id number] Mean corpuscular hemoglobin concentration (MCHC) determination 34.7 g/dL 32-36 [facility] Mean platelet volume determi nationOrdered By: Bola Meraz on 09-02-2024 Platelet mean volume (Bld) [Entitic vol] 12.8 fL High 6.2-12.0 [facility] Comment on above: Performed By: #### L 100.0100 ####[facility] [address] [place], [address] Mean platelet volume determination 12.8 fl High 6.2-12.0 [facility] Monocyte percentageOrdered B y: Bola Meraz on 09-02-2024 Monocytes/100 WBC (Bld) 6.0 % Normal 0-10 [facility] Comment on above: Performed By: #### L 100.0100 ####[facility] [address] [place], [address] Monocyte percentage 6.0 % 0-10 [facility] Neutrophil percentageOrdered By: Bola Meraz on 09-02-2024 Neutrophils/100 WBC (Bld) 84.7 % High 47-70 [facility] Comment on above: Performed By: #### L 100.0100 ####[facility] [address] [place], [address] Neutrophil percentage 84.7 % High 47-70 [facility] Nucleated red blood cell per centageOrdered By: Bola Meraz on 09-02-2024 Nucleated RBC/100 WBC (Bld) [Ratio] 0 % 0-5 [facility] Nucleated red blood cell percentage 0 % 0-5 [facility] Platelet countOrdered By: Oliver on 09-02-2024 Platelets (Bld) [#/Vol] 82 10*3/uL Low 150-450 [facility] Comment on above: Performed By: #### L 100.0100 ####[facility] [address] [place], [address] Platelet count 82 K/mm3 Low 150-450 [facility] Potassium measurementOrdered By: Bola Meraz on 09-02-2024 Potassium [Moles/Vol] 4.0 mmol/L Normal 3.5-5.1 [facility] Comment on above: Performed By: #### L 500.2500 ####[facility] [address] [place], [address] Potassium measurement 4.0 mmol/L 3.5-5.1 [facility] RBC Auto (Bld) [#/Vol]Ordere d By: Bola Meraz on 09-02-2024 Automated blood erythrocyte count 3.68 M/mm3 Low 4.6-6.2 [facility] Serum anion gap measurementO rdered By: Bola Meraz on 09-02-2024 Anion gap [Moles/Vol] 8 mmol/L 5-15 [facility] Serum anion gap measurement 8 5-15 [facility] Serum or plasma calcium roosevelt urement (mass/volume)Ordered By: Bola Meraz on 09-02-2024 Calcium [Mass/Vol] 8.9 mg/dL 8.5-10.1 [facility] Serum or plasma creatinine m easurement (mass/volume)Ordered By: Bola Meraz on 09-02-2024 Creatinine [Mass/Vol] 2.54 mg/dL High 0.70-1.30 [facility] Comment on above: The validity of the calculated GFR & GFRAA in patients over 70 years has not been determined. Clinical correlation is essential. Result Comment: The validity of the calculated GFR GFRAA in patients over70 years has not been determined. Clinical correlation isessential. Performed By: #### L 500.2500 ####[facility] [address] [place], [address] Serum or plasma urea nitroge n measurement (mass/volume)Ordered By: Bola Meraz on 09-02-2024 Urea nitrogen [Mass/Vol] 43 mg/dL High 02-18 [facility] Comment on above: Performed By: #### L 500.2500 ####[facility] [address] [place], [address] Sodium levelOrdered By: Deanna Meraz on 09-02-2024 Sodium [Moles/Vol] 133 mmol/L Low 136-145 [facility] Comment on above: Performed By: #### L 500.2500 ####[facility] [address] [place], [address] Sodium level 133 mmol/L Low 136-145 [facility] Urea nitrogen [Mass/Vol]Orde red By: Bola Meraz on 09-02-2024 Serum or plasma urea nitrogen measurement (mass/volume) 43 mg/dL High 7-18 [facility] White blood cell (WBC) count Ordered By: Bola Meraz on 09-02-2024 WBC (Bld) [#/Vol] 16.5 10*3/uL High 4.4-11.0 [facility] Comment on above: Performed By: #### L 100.0100 ####[facility] [address] [place], [address] White blood cell (WBC) count 16.5 K/mm3 High 4.4-11.0 [facility] Basic Metabolic Profile (BMP )on 09-01-2024 BUN/CRE 14.6 RATIO Normal 10-20 [facility] Comment on above: Performed By: #### L 500.2500 ####[facility] [address] [place], [address] CA,Total 8.6 mg/dL Normal 8.5-10.1 [facility] Comment on above: Performed By: #### L 500.2500 ####[facility] [address] [place], [address] Chloride [Moles/Vol] 107 mmol/L Normal 98-107 [facility] Comment on above: Performed By: #### L 500.2500 ####[facility] [address] [place], [address] CO2 [Moles/Vol] 16.0 mmol/L Low 21.0-32.0 [facility] Comment on above: Performed By: #### L 500.2500 ####[facility] [address] [place], [address] Creatinine [Mass/Vol] 3.35 mg/dL High 0.70-1.30 [facility] Comment on above: Result Comment: The validity of the calculated GFR GFRAA in patients over70 years has not been determined. Clinical correlation isessential. Performed By: #### L 500.2500 ####[facility] [address] [place], [address] ECRCL 28.26 ml/min Normal [facility] Comment on above: Performed By: #### L 500.2500 ####[facility] [address] [place], [address] EST GFR - AA 25 mL/min Low >60 [facility] Comment on above: Result Comment: Afri can Dutch GFR Calc Performed By: #### L 500.2500 ####[facility] [address] [place], [address] GAP 11 Normal 5-15 [facility] Comment on above: Performed By: #### L 500.2500 ####[facility] [address] [place], [address] GFR/1.73 sq M.predicted among non-blacks MDRD (S/P/Bld) [Vol rate/Area] 20 mL/min/{1.73_m2} Low >60 [facility] Comment on above: Result Comment: Non- GFR Calc Performed By: #### L 500.2500 ####[facility] [address] [place], [address] Glucose [Mass/Vol] 231 mg/dL High 74-106 [facility] Comment on above: Result Comment: Gluc ose result greater than or equal to 200 mg/dLsuggests DIABETES MELLITUS per A.D.A. criteria. Performed By: #### L 500.2500 ####[facility] [address] [place], [address] Potassium [Moles/Vol] 3.7 mmol/L Normal 3.5-5.1 [facility] Comment on above: Performed By: #### L 500.2500 ####[facility] [address] [place], [address] Sodium [Moles/Vol] 134 mmol/L Low 136-145 [facility] Comment on above: Performed By: #### L 500.2500 ####[facility] [address] [place], [address] Urea nitrogen [Mass/Vol] 49 mg/dL High 7-18 [facility] Comment on above: Performed By: #### L 500.2500 ####[facility] [address] [place], [address] Bedside Glucoseon 09-01-2024 FINGERSTICK GLU 204 mg/dL High 74-106 [facility] Comment on above: Result Comment: BRISA GEMENT OF PATIENT CARE PER NURSING PROTOCOL Performed By: #### L 501.080 ####[facility] [address] [place], [address] FINGERSTICK GLU 192 mg/dL High 74-106 [facility] Comment on above: Result Comment: BRISA GEMENT OF PATIENT CARE PER NURSING PROTOCOL Performed By: #### L 501.080 ####[facility] [address] [place], [address] FINGERSTICK GLU 173 mg/dL High 74-106 [facility] Comment on above: Result Comment: BRIAS GEMENT OF PATIENT CARE PER NURSING PROTOCOL Performed By: #### L 501.080 ####[facility] [address] [place], [address] MR/PN.GIon 09-01-2024 MR/PN.GI Normal [facility] Basic Metabolic Profile (BMP )on 08-31-2024 BUN/CRE 13.5 RATIO Normal 10-20 [facility] Comment on above: Performed By: #### L 500.2500 ####[facility] [address] [place], [address] CA,Total 8.4 mg/dL Low 8.5-10.1 [facility] Comment on above: Performed By: #### L 500.2500 ####[facility] [address] [place], [address] Chloride [Moles/Vol] 107 mmol/L Normal 98-107 [facility] Comment on above: Performed By: #### L 500.2500 ####[facility] [address] [place], [address] CO2 [Moles/Vol] 18.0 mmol/L Low 21.0-32.0 [facility] Comment on above: Performed By: #### L 500.2500 ####[facility] [address] [place], [address] Creatinine [Mass/Vol] 4.36 mg/dL High 0.70-1.30 [facility] Comment on above: Result Comment: The validity of the calculated GFR GFRAA in patients over70 years has not been determined. Clinical correlation isessential. Performed By: #### L 500.2500 ####[facility] [address] [place], [address] ECRCL 21.72 ml/min Normal [facility] Comment on above: Performed By: #### L 500.2500 ####[facility] [address] [place], [address] EST GFR - AA 18 mL/min Low >60 [facility] Comment on above: Result Comment: Afri can Dutch GFR Calc Performed By: #### L 500.2500 ####[facility] [address] [place], [address] GAP 10 Normal 5-15 [facility] Comment on above: Performed By: #### L 500.2500 ####[facility] [address] [place], [address] GFR/1.73 sq M.predicted among non-blacks MDRD (S/P/Bld) [Vol rate/Area] 15 mL/min/{1.73_m2} Low >60 [facility] Comment on above: Result Comment: Non- GFR Calc Performed By: #### L 500.2500 ####[facility] [address] [place], [address] Glucose [Mass/Vol] 241 mg/dL High 74-106 [facility] Comment on above: Result Comment: Gluc ose result greater than or equal to 200 mg/dLsuggests DIABETES MELLITUS per A.D.A. criteria. Performed By: #### L 500.2500 ####[facility] [address] [place], [address] Potassium [Moles/Vol] 3.5 mmol/L Normal 3.5-5.1 [facility] Comment on above: Performed By: #### L 500.2500 ####[facility] [address] [place], [address] Sodium [Moles/Vol] 135 mmol/L Low 136-145 [facility] Comment on above: Performed By: #### L 500.2500 ####[facility] [address] [place], [address] Urea nitrogen [Mass/Vol] 59 mg/dL High 7-18 [facility] Comment on above: Performed By: #### L 500.2500 ####[facility] [address] [place], [address] Bedside Glucoseon 08-31-2024 FINGERSTICK GLU 222 mg/dL High 74-106 [facility] Comment on above: Result Comment: BRISA GEMENT OF PATIENT CARE PER NURSING PROTOCOL Performed By: #### L 501.080 ####[facility] [address] [place], [address] FINGERSTICK GLU 219 mg/dL High -106 [facility] Comment on above: Result Comment: BRISA GEMENT OF PATIENT CARE PER NURSING PROTOCOL Performed By: #### L 501.080 ####[facility] [address] [place], [address] FINGERSTICK GLU 205 mg/dL High 74-106 [facility] Comment on above: Result Comment: BRISA GEMENT OF PATIENT CARE PER NURSING PROTOCOL Performed By: #### L 501.080 ####[facility] [address] [place], [address] FINGERSTICK GLU 193 mg/dL High 74-106 [facility] Comment on above: Result Comment: BRISA GEMENT OF PATIENT CARE PER NURSING PROTOCOL Performed By: #### L 501.080 ####[facility] [address] [place], [address] FINGERSTICK GLU 273 mg/dL High 74-106 [facility] Comment on above: Result Comment: BRISA GEMENT OF PATIENT CARE PER NURSING PROTOCOL Performed By: #### L 501.080 ####[facility] [address] [place], [address] CBC W/Diff, Automatedon 08-05 Absolute Lymph 0.80 X10 3/uL Low 0.83-4.51 [facility] Comment on above: Performed By: #### L 100.0100 ####[facility] [address] [place], [address] Absolute Neut 8.6 X10 3/uL High 2.0-7.7 [facility] Comment on above: Performed By: #### L 100.0100 ####[facility] [address] [place], [address] Basophils/100 WBC (Bld) 0.3 % Normal 0-1 [facility] Comment on above: Performed By: #### L 100.0100 ####[facility] [address] [place], [address] Eosinophils/100 WBC (Bld) 2.0 % Normal 0-5 [facility] Comment on above: Performed By: #### L 100.0100 ####[facility] [address] [place], [address] Erythrocyte distribution width (RBC) [Ratio] 15.4 % High 11.6-14.6 [facility] Comment on above: Performed By: #### L 100.0100 ####[facility] [address] [place], [address] Hematocrit (Bld) [Volume fraction] 26.6 % Low 40-54 [facility] Comment on above: Performed By: #### L 100.0100 ####[facility] [address] [place], [address] Hemoglobin (Bld) [Mass/Vol] 9.2 g/dL Low 13.0-16.5 [facility] Comment on above: Performed By: #### L 100.0100 ####[facility] [address] [place], [address] IG% 1.200 High 0.0-0.9 [facility] Comment on above: Result Comment: IG% - Immature Granulocytes (promyelocytes, myelocytes andmetamyelocytes) > 1% indicates that a LEFT SHIFT is Present. Performed By: #### L 100.0100 ####[facility] [address] [place], [address] Lymphocytes/100 WBC (Bld) 7.7 % Low 19-41 [facility] Comment on above: Performed By: #### L 100.0100 ####[facility] [address] [place], [address] MCH (RBC) [Entitic mass] 28.8 pg Normal 27.0-32.0 [facility] Comment on above: Performed By: #### L 100.0100 ####[facility] [address] [place], [address] MCHC (RBC) [Mass/Vol] 34.6 g/dL Normal 32-36 [facility] Comment on above: Performed By: #### L 100.0100 ####[facility] [address] [place], [address] MCV (RBC) [Entitic vol] 83.4 fL Normal 80-94 [facility] Comment on above: Performed By: #### L 100.0100 ####[facility] [address] [place], [address] Monocytes/100 WBC (Bld) 6.6 % Normal 0-10 [facility] Comment on above: Performed By: #### L 100.0100 ####[facility] [address] [place], [address] Neutrophils/100 WBC (Bld) 82.2 % High 47-70 [facility] Comment on above: Performed By: #### L 100.0100 ####[facility] [address] [place], [address] Nucleated RBC (Bld) [#/Vol] 0 10*3/uL Normal 0-5 [facility] Comment on above: Performed By: #### L 100.0100 ####[facility] [address] [place], [address] Platelet mean volume (Bld) [Entitic vol] 13.1 fL High 6.2-12.0 [facility] Comment on above: Performed By: #### L 100.0100 ####[facility] [address] [place], [address] Platelets (Bld) [#/Vol] 56 10*3/uL Low 150-450 [facility] Comment on above: Performed By: #### L 100.0100 ####[facility] [address] [place], [address] RBC (Bld) [#/Vol] 3.19 10*6/uL Low 4.6-6.2 [facility] Comment on above: Performed By: #### L 100.0100 ####[facility] [address] [place], [address] RDW SD 46.5 fl High 35.1-43.9 [facility] Comment on above: Performed By: #### L 100.0100 ####[facility] [address] [place], [address] WBC (Bld) [#/Vol] 10.4 10*3/uL Normal 4.4-11.0 [facility] Comment on above: Performed By: #### L 100.0100 ####[facility] [address] [place], [address] MR/PN.GIon 08-31-2024 MR/PN.GI Normal [facility] ALP [Catalytic activity/Vol] Ordered By: [facility] Mone on 08-30-2024 Serum or plasma alkaline phosphatase measurement 143 U/L High 45-117 [facility] ALT [Catalytic activity/Vol] Ordered By: [facility] Mone on 08-30-2024 Serum or plasma alanine aminotransferase (ALT) measurement 19 U/L 16-61 [facility] Albumin [Mass/Vol]Ordered By : [facility] on 08-30-2024 Serum or plasma albumin measurement (mass/volume) 1.9 g/dL Low 3.2-5.0 [facility] Ammoniaon 08-30-2024 Ammonia (P) [Moles/Vol] 64.0 umol/L High 11-32 [facility] Comment on above: Performed By: #### L 100.0100, L503.5510, L503.6550, L503.6030, L500.2500, L501.9985, L500.3400 ####[facility] [address] [place], [address] Basic Metabolic Profile (BMP )on 08-30-2024 BUN/CRE 13.6 RATIO Normal 10-20 [facility] Comment on above: Performed By: #### L 100.0100, L503.5510, L503.6550, L503.6030, L500.2500, L501.9985, L500.3400 ####[facility] [address] [place], [address] CA,Total 8.0 mg/dL Low 8.5-10.1 [facility] Comment on above: Performed By: #### L 100.0100, L503.5510, L503.6550, L503.6030, L500.2500, L501.9985, L500.3400 ####[facility] [address] [place], [address] Chloride [Moles/Vol] 105 mmol/L Normal 98-107 [facility] Comment on above: Performed By: #### L 100.0100, L503.5510, L503.6550, L503.6030, L500.2500, L501.9985, L500.3400 ####[facility] [address] [place], [address] CO2 [Moles/Vol] 15.0 mmol/L Low 21.0-32.0 [facility] Comment on above: Performed By: #### L 100.0100, L503.5510, L503.6550, L503.6030, L500.2500, L501.9985, L500.3400 ####[facility] [address] [place], [address] Creatinine [Mass/Vol] 5.37 mg/dL High 0.70-1.30 [facility] Comment on above: Result Comment: The validity of the calculated GFR GFRAA in patients over70 years has not been determined. Clinical correlation isessential. Performed By: #### L 100.0100, L503.5510, L503.6550, L503.6030, L500.2500, L501.9985, L500.3400 ####[facility] [address] [place], [address] ECRCL 17.63 ml/min Normal [facility] Comment on above: Performed By: #### L 100.0100, L503.5510, L503.6550, L503.6030, L500.2500, L501.9985, L500.3400 ####[facility] [facility] [address] [place], [address] EST GFR - AA 14 mL/min Low >60 [facility] Comment on above: Result Comment: Afri can Dutch GFR Calc Performed By: #### L 100.0100, L503.5510, L503.6550, L503.6030, L500.2500, L501.9985, L500.3400 ####[facility] [address] [place], [address] GAP 13 Normal 5-15 [facility] Comment on above: Performed By: #### L 100.0100, L503.5510, L503.6550, L503.6030, L500.2500, L501.9985, L500.3400 ####[facility] [address] [place], [place], [phone]([phone] GFR/1.73 sq M.predicted among non-blacks MDRD (S/P/Bld) [Vol rate/Area] 12 mL/min/{1.73_m2} Low >60 [facility] Comment on above: Result Comment: Non- GFR Calc Performed By: #### L 100.0100, L503.5510, L503.6550, L503.6030, L500.2500, L501.9985, L500.3400 ####[facility] [address] [place], [place], [phone] Glucose [Mass/Vol] 267 mg/dL High 74-106 [facility] Comment on above: Result Comment: Gluc ose result greater than or equal to 200 mg/dLsuggests DIABETES MELLITUS per A.D.A. criteria. Performed By: #### L 100.0100, L503.5510, L503.6550, L503.6030, L500.2500, L501.9985, L500.3400 ####[facility] [address] [place], [place], [phone] Potassium [Moles/Vol] 3.4 mmol/L Low 3.5-5.1 [facility] Comment on above: Performed By: #### L 100.0100, L503.5510, L503.6550, L503.6030, L500.2500, L501.9985, L500.3400 ####[facility] [address] [place], [address] Sodium [Moles/Vol] 133 mmol/L Low 136-145 [facility] Comment on above: Performed By: #### L 100.0100, L503.5510, L503.6550, L503.6030, L500.2500, L501.9985, L500.3400 ####[facility] [address] [place], [address] Urea nitrogen [Mass/Vol] 73 mg/dL High 7-18 [facility] Comment on above: Performed By: #### L 100.0100, L503.5510, L503.6550, L503.6030, L500.2500, L501.9985, L500.3400 ####[facility] [address] [place], [address] Bedside Glucoseon 08-30-2024 FINGERSTICK GLU 312 mg/dL High 74-106 [facility] Comment on above: Result Comment: BRISA GEMENT OF PATIENT CARE PER NURSING PROTOCOL Performed By: #### L 501.080 ####[facility] [address] [place], [address] FINGERSTICK GLU 208 mg/dL High 74-106 [facility] Comment on above: Result Comment: BRISA GEMENT OF PATIENT CARE PER NURSING PROTOCOL Performed By: #### L 501.080 ####[facility] [address] [place], [address] FINGERSTICK GLU 213 mg/dL High 74-106 [facility] Comment on above: Result Comment: BRISA GEMENT OF PATIENT CARE PER NURSING PROTOCOL Performed By: #### L 501.080 ####[facility] [address] [place], [address] FINGERSTICK GLU 259 mg/dL High 74-106 [facility] Comment on above: Result Comment: BRISA GEMENT OF PATIENT CARE PER NURSING PROTOCOL Performed By: #### L 501.080 ####[facility] [address] [place], [address] FINGERSTICK GLU 167 mg/dL High 74-106 [facility] Comment on above: Result Comment: BRISA GEMENT OF PATIENT CARE PER NURSING PROTOCOL Performed By: #### L 501.080 ####[facility] [address] [place], [address] Bilirubin directOrdered By: Maria Guadalupe Shore on 08-30-2024 Bilirubin.direct [Mass/Vol] 0.83 mg/dL High 0.00-0.30 [facility] Bilirubin, totalOrdered By: Maria Guadalupe Shore on 08-30-2024 Bilirubin [Mass/Vol] 1.30 mg/dL High 0.20-1.00 [facility] Comment on above: For patients on eltr ombopag therapy, use of Dimension Stewart TBIL is not recommended. Bilirubin, total 1.30 mg/dL High 0.20-1.00 [facility] Bilirubin.direct [Mass/Vol]O rdered By: Maria Guadalupe Shore on 08-30-2024 Bilirubin direct 0.83 mg/dL High 0.00-0.30 [facility] CBC W/Diff, Automatedon 08-05 Absolute Lymph 1.01 X10 3/uL Normal 0.83-4.51 [facility] Comment on above: Performed By: #### L 100.0100, L503.5510, L503.6550, L503.6030, L500.2500, L501.9985, L500.3400 ####[facility] [address] [place], [address] Absolute Neut 7.6 X10 3/uL Normal 2.0-7.7 [facility] Comment on above: Performed By: #### L 100.0100, L503.5510, L503.6550, L503.6030, L500.2500, L501.9985, L500.3400 ####[facility] [address] [place], [address] Basophils/100 WBC (Bld) 0.4 % Normal 0-1 [facility] Comment on above: Performed By: #### L 100.0100, L503.5510, L503.6550, L503.6030, L500.2500, L501.9985, L500.3400 ####[facility] [address] [place], [address] Eosinophils/100 WBC (Bld) 3.1 % Normal 0-5 [facility] Comment on above: Performed By: #### L 100.0100, L503.5510, L503.6550, L503.6030, L500.2500, L501.9985, L500.3400 ####[facility] [address] [place], [address] Erythrocyte distribution width (RBC) [Ratio] 15.6 % High 11.6-14.6 [facility] Comment on above: Performed By: #### L 100.0100, L503.5510, L503.6550, L503.6030, L500.2500, L501.9985, L500.3400 ####[facility] [address] [place], [address] Hematocrit (Bld) [Volume fraction] 27.9 % Low 40-54 [facility] Comment on above: Performed By: #### L 100.0100, L503.5510, L503.6550, L503.6030, L500.2500, L501.9985, L500.3400 ####[facility] [address] [place], [address] Hemoglobin (Bld) [Mass/Vol] 9.5 g/dL Low 13.0-16.5 [facility] Comment on above: Performed By: #### L 100.0100, L503.5510, L503.6550, L503.6030, L500.2500, L501.9985, L500.3400 ####[facility] [address] [place], [address] IG% 0.700 Normal 0.0-0.9 [facility] Comment on above: Result Comment: IG% - Immature Granulocytes (promyelocytes, myelocytes andmetamyelocytes) > 1% indicates that a LEFT SHIFT is Present. Performed By: #### L 100.0100, L503.5510, L503.6550, L503.6030, L500.2500, L501.9985, L500.3400 ####[facility] [address] [place], [address] Lymphocytes/100 WBC (Bld) 10.1 % Low 19-41 [facility] Comment on above: Performed By: #### L 100.0100, L503.5510, L503.6550, L503.6030, L500.2500, L501.9985, L500.3400 ####[facility] [address] [place], [address] MCH (RBC) [Entitic mass] 28.9 pg Normal 27.0-32.0 [facility] Comment on above: Performed By: #### L 100.0100, L503.5510, L503.6550, L503.6030, L500.2500, L501.9985, L500.3400 ####[facility] [address] [place], [address] MCHC (RBC) [Mass/Vol] 34.1 g/dL Normal 32-36 [facility] Comment on above: Performed By: #### L 100.0100, L503.5510, L503.6550, L503.6030, L500.2500, L501.9985, L500.3400 ####[facility] [address] [place], [address] MCV (RBC) [Entitic vol] 84.8 fL Normal 80-94 [facility] Comment on above: Performed By: #### L 100.0100, L503.5510, L503.6550, L503.6030, L500.2500, L501.9985, L500.3400 ####[facility] [address] [place], [address] Monocytes/100 WBC (Bld) 9.3 % Normal 0-10 [facility] Comment on above: Performed By: #### L 100.0100, L503.5510, L503.6550, L503.6030, L500.2500, L501.9985, L500.3400 ####[facility] [address] [place], [address] Neutrophils/100 WBC (Bld) 76.4 % High 47-70 [facility] Comment on above: Performed By: #### L 100.0100, L503.5510, L503.6550, L503.6030, L500.2500, L501.9985, L500.3400 ####[facility] [address] [place], [address] Nucleated RBC (Bld) [#/Vol] 0 10*3/uL Normal 0-5 [facility] Comment on above: Performed By: #### L 100.0100, L503.5510, L503.6550, L503.6030, L500.2500, L501.9985, L500.3400 ####[facility] [address] [place], [address] Platelet mean volume (Bld) [Entitic vol] 12.6 fL High 6.2-12.0 [facility] Comment on above: Performed By: #### L 100.0100, L503.5510, L503.6550, L503.6030, L500.2500, L501.9985, L500.3400 ####[facility] [address] [place], [address] Platelets (Bld) [#/Vol] 67 10*3/uL Low 150-450 [facility] Comment on above: Performed By: #### L 100.0100, L503.5510, L503.6550, L503.6030, L500.2500, L501.9985, L500.3400 ####[facility] [address] [place], [address] RBC (Bld) [#/Vol] 3.29 10*6/uL Low 4.6-6.2 [facility] Comment on above: Performed By: #### L 100.0100, L503.5510, L503.6550, L503.6030, L500.2500, L501.9985, L500.3400 ####[facility] [address] [place], [address] RDW SD 48.4 fl High 35.1-43.9 [facility] Comment on above: Performed By: #### L 100.0100, L503.5510, L503.6550, L503.6030, L500.2500, L501.9985, L500.3400 ####[facility] [address] [place], [address] WBC (Bld) [#/Vol] 10.0 10*3/uL Normal 4.4-11.0 [facility] Comment on above: Performed By: #### L 100.0100, L503.5510, L503.6550, L503.6030, L500.2500, L501.9985, L500.3400 ####[facility] [address] [place], [place], [phone] Consultation - Intensiviston 08-30-2024 Consultation - General Internist And Physician Leader Normal [facility] Consultation - Nephrologyon 08-30-2024 Consultation - Nephrology Normal [facility] Creatinine, Urine (random)on 08-30-2024 UR CREAT 173.00 mg/dL Normal NO RANGE EST. [facility] Comment on above: Performed By: #### L 501.5500, L501.1200 ####[facility] [address] [place], [place], [phone]([phone] Ferritinon 08-30-2024 Ferritin [Mass/Vol] 85 ng/mL Normal -388 [facility] Comment on above: Performed By: #### L 100.0100, L503.5510, L503.6550, L503.6030, L500.2500, L501.9985, L500.3400 ####[facility] [address] [place], [place], [phone] Ferritin measurementOrdered By: Maria Guadalupe Shore on 08-30-2024 Ferritin [Mass/Vol] 85 ng/mL 388 [facility] Ferritin measurement 85 ng/mL [facility] HH, Hemoglobin AND Hematocri ton 08-30-2024 Hematocrit (Bld) [Volume fraction] 28.5 % Low 40-54 [facility] Comment on above: Performed By: #### L 100.0600 ####[facility] [address] [place], [place], [phone] Hemoglobin (Bld) [Mass/Vol] 9.8 g/dL Low 13.0-16.5 [facility] Comment on above: Performed By: #### L 100.0600 ####[facility] [address] [place], [place], [phone] HbA1c (Bld) [Mass fraction]O rdered By: Maria Guadalupe Shore on 08-30-2024 Hemoglobin A1c percentage 7.9 % High 3.8-5.6 [facility] Hemoglobin A1con 08-30-2024 HbA1c (Bld) [Mass fraction] 7.9 % High 3.8-5.6 [facility] Comment on above: Result Comment: Norm al < 5.7 % Prediabetic 5.7 - 6.4 % Diabetic >or= 6.5 % Please note range changes. Performed By: #### L 100.0100, L503.5510, L503.6550, L503.6030, L500.2500, L501.9985, L500.3400 ####[facility] [address] [place], [place], [phone] Hemoglobin A1c percentageOrd ered By: Maria Guadalupe Shore on 08-30-2024 HbA1c (Bld) [Mass fraction] 7.9 % High 3.8-5.6 [facility] Comment on above: Normal < 5.7 % Predi abetic 5.7 - 6.4 % Diabetic >or= 6.5 % Please note range changes. Iron (Unsp spec) [Mass/Mass] Ordered By: Maria Guadalupe Shore on 08-30-2024 Iron [Mass/Vol] 62 ug/dL Low 65-175 [facility] Iron measurement (mass/mass) 62 ug/dL Low 65-175 [facility] Iron measurement (mass/mass) Ordered By: Maria Guadalupe Shore on 08-30-2024 Iron (Unsp spec) [Mass/Mass] 62 ug/dL Low 65-175 [facility] Iron saturation [Mass fracti on]Ordered By: Maria Guadalupe Shore on 08-30-2024 Iron Saturation 33.9 % 15.0-55.0 [facility] Serum or plasma iron saturation measurement (mass fraction) 33.9 % 15.0-55.0 [facility] Iron+Iron Binding Capacityon 08-30-2024 Iron [Mass/Vol] 62 ug/dL Low 65-175 [facility] Comment on above: Performed By: #### L 100.0100, L503.5510, L503.6550, L503.6030, L500.2500, L501.9985, L500.3400 ####[facility] [address] [place], [address] IRON SATURATION 33.9 Normal 15.0-55.0 [facility] Comment on above: Performed By: #### L 100.0100, L503.5510, L503.6550, L503.6030, L500.2500, L501.9985, L500.3400 ####[facility] [address] [place], [address] TIBC 183 ug/dL Low 250-450 [facility] Comment on above: Performed By: #### L 100.0100, L503.5510, L503.6550, L503.6030, L500.2500, L501.9985, L500.3400 ####[facility] [address] [place], [address] Laboratory - Chemistry and C hemistry - challengeOrdered By: Maria Guadalupe Shore on 08-30-2024 AST [Catalytic activity/Vol] 22 U/L 15-37 [facility] Liveron 08-30-2024 Liver Normal [facility] Liver Profileon 08-30-2024 Albumin [Mass/Vol] 1.9 g/dL Low 3.2-5.0 [facility] Comment on above: Performed By: #### L 100.0100, L503.5510, L503.6550, L503.6030, L500.2500, L501.9985, L500.3400 ####[facility] [address] [place], [place], [phone] ALK P 143 U/L High 45-117 [facility] Comment on above: Performed By: #### L 100.0100, L503.5510, L503.6550, L503.6030, L500.2500, L501.9985, L500.3400 ####[facility] [address] [place], [address] ALT [Catalytic activity/Vol] 19 U/L Normal 16-61 [facility] Comment on above: Performed By: #### L 100.0100, L503.5510, L503.6550, L503.6030, L500.2500, L501.9985, L500.3400 ####[facility] [address] [place], [address] AST [Catalytic activity/Vol] 22 U/L Normal 15-37 [facility] Comment on above: Performed By: #### L 100.0100, L503.5510, L503.6550, L503.6030, L500.2500, L501.9985, L500.3400 ####[facility] [address] [place], [address] Bilirubin [Mass/Vol] 1.30 mg/dL High 0.20-1.00 [facility] Comment on above: Result Comment: For patients on eltrombopag therapy, use of Dimension Stewart TBIL is not recommended. Performed By: #### L 100.0100, L503.5510, L503.6550, L503.6030, L500.2500, L501.9985, L500.3400 ####[facility] [address] [place], [address] Bilirubin.direct [Mass/Vol] 0.83 mg/dL High 0.00-0.30 [facility] Comment on above: Performed By: #### L 100.0100, L503.5510, L503.6550, L503.6030, L500.2500, L501.9985, L500.3400 ####[facility] [address] [place], [address] Globulin (S) [Mass/Vol] 3.4 g/dL Normal 2.2-4.2 [facility] Comment on above: Performed By: #### L 100.0100, L503.5510, L503.6550, L503.6030, L500.2500, L501.9985, L500.3400 ####[facility] [address] [place], [address] T PROT 5.3 g/dL Low 6.4-8.2 [facility] Comment on above: Performed By: #### L 100.0100, L503.7810, L503.6250, L503.6030, L500.2500, L501.9985, L500.3400 ####[facility] [address] [place], [address] MR/CON.PCM.GIon 08-30-2024 MR/CON.PCM.GI Normal [facility] No Panel InformationOrdered By: Maria Guadalupe Shore on 08-30-2024 22 U/L 15-37 [facility] Serum globulin measurementOr dered By: Maria Guadalupe Shore on 08-30-2024 Globulin (S) [Mass/Vol] 3.4 g/dL 2.2-4.2 [facility] Serum globulin measurement 3.4 g/dL 2.2-4.2 [facility] Serum or plasma alanine thomas otransferase (ALT) measurementOrdered By: Maria Guadalupe Shore on 08-30-2024 ALT [Catalytic activity/Vol] 19 U/L 16-61 [facility] Serum or plasma albumin roosevelt urement (mass/volume)Ordered By: Maria Guadalupe Shore 08-30-2024 Albumin [Mass/Vol] 1.9 g/dL Low 3.2-5.0 [facility] Serum or plasma alkaline kendrick sphatase measurementOrdered By: Maria Guadalupe Shore 08-30-2024 ALP [Catalytic activity/Vol] 143 U/L High 45-117 [facility] Serum or plasma iron saturat ion measurement (mass fraction)Ordered By: Maria Guadalupe Shore on 08-30-2024 Iron saturation [Mass fraction] 33.9 % 15.0-55.0 [facility] TIBCOrdered By: Maria Guadalupe Shore on 08-30-2024 Total Iron Binding Capacity 183 ug/dL Low 250-450 [facility] TIBC 183 ug/dL Low 250-450 [facility] Total proteinOrdered By: Caryl Shore on 08-30-2024 Protein [Mass/Vol] 5.3 g/dL Low 6.4-8.2 [facility] Total protein 5.3 g/dL Low 6.4-8.2 [facility] Urine Cultureon 08-30-2024 URC Culture exhibits no growth. Normal [facility] Comment on above: Performed By: #### M 100.4214 ####[facility] [address] [place], [address] Venous blood ammonia measure mentOrdered By: Maria Guadalupe Shore on 08-30-2024 Ammonia (P) [Moles/Vol] 64.0 umol/L High [facility] Venous blood ammonia measurement 64.0 umol/L High [facility] 12 Lead EKGon 08-29-2024 12 Lead EKG Normal [facility] Activated partial thrombopla stin time (aPTT) in platelet poor plasma by coagulation aOrdered By: Luis Carlos Anderson on 08-29-2024 aPTT Coag (PPP) [Time] 40.9 s High 24.1-36.2 [facility] Albumin to globulin ratioOrd ered By: Luis Carlos Anderson on 08-29-2024 Albumin/Globulin [Mass ratio] 0.4 {ratio} Low 0.9-2.4 [facility] Albumin to globulin ratio 0.4 RATIO Low 0.9-2.4 [facility] Ammoniaon 08-29-2024 Ammonia (P) [Moles/Vol] 99.0 umol/L High [facility] Comment on above: Performed By: #### L 503.5552, L300.4310, L300.3900 ####[facility] [address] [place], [place], [id number] Bacteria LM.HPF (Urine sed) [#/Area]Ordered By: Luis Carlos Anderson on 08-29-2024 Urine Bacteria RARE /hpf None Seen [facility] Urine sediment bacteria count by microscopy (number/high power field) RARE /hpf None Seen [facility] Bilirubin Test strip Ql (U)O rdered By: Luis Carlos Anderson on 08-29-2024 Bilirubin Ql (U) 1 mg/dL High Negative [facility] Comment on above: COLOR OF URINE MAY A FFECT DIPSTICK RESULTS. Brain/Head without Contrasto n 08-29-2024 Brain/Head without Contrast Normal [facility] CBC W/Diff, Automatedon - Absolute Lymph 1.03 X10 3/uL Normal 0.83-4.51 [facility] Comment on above: Performed By: #### L 100.0100, L500.4050 ####[facility] [address] [place], [address] Absolute Neut 9.1 X10 3/uL High 2.0-7.7 [facility] Comment on above: Performed By: #### L 100.0100, L500.4050 ####[facility] [address] [place], [address] Basophils/100 WBC (Bld) 0.4 % Normal 0-1 [facility] Comment on above: Performed By: #### L 100.0100, L500.4050 ####[facility] [address] [place], [address] Eosinophils/100 WBC (Bld) 2.9 % Normal 0-5 [facility] Comment on above: Performed By: #### L 100.0100, L500.4050 ####[facility] [address] [place], [address] Erythrocyte distribution width (RBC) [Ratio] 15.4 % High 11.6-14.6 [facility] Comment on above: Performed By: #### L 100.0100, L500.4050 ####[facility] [address] [place], [address] Hematocrit (Bld) [Volume fraction] 32.2 % Low 40-54 [facility] Comment on above: Performed By: #### L 100.0100, L500.4050 ####[facility] [address] [place], [address] Hemoglobin (Bld) [Mass/Vol] 11.2 g/dL Low 13.0-16.5 [facility] Comment on above: Performed By: #### L 100.0100, L500.4050 ####[facility] [address] [place], [address] IG% 1.000 High 0.0-0.9 [facility] Comment on above: Result Comment: IG% - Immature Granulocytes (promyelocytes, myelocytes andmetamyelocytes) > 1% indicates that a LEFT SHIFT is Present. Performed By: #### L 100.0100, L500.4050 ####[facility] [address] [place], [address] Lymphocytes/100 WBC (Bld) 8.7 % Low 19-41 [facility] Comment on above: Performed By: #### L 100.0100, L500.4050 ####[facility] [address] [place], [address] MCH (RBC) [Entitic mass] 29.0 pg Normal 27.0-32.0 [facility] Comment on above: Performed By: #### L 100.0100, L500.4050 ####[facility] [address] [place], [address] MCHC (RBC) [Mass/Vol] 34.8 g/dL Normal 32-36 [facility] Comment on above: Performed By: #### L 100.0100, L500.4050 ####[facility] [address] [place], [address] MCV (RBC) [Entitic vol] 83.4 fL Normal 80-94 [facility] Comment on above: Performed By: #### L 100.0100, L500.4050 ####[facility] [address] [place], [address] Monocytes/100 WBC (Bld) 10.4 % High 0-10 [facility] Comment on above: Performed By: #### L 100.0100, L500.4050 ####[facility] [address] [place], [address] Neutrophils/100 WBC (Bld) 76.6 % High 47-70 [facility] Comment on above: Performed By: #### L 100.0100, L500.4050 ####[facility] [address] [place], [address] Nucleated RBC (Bld) [#/Vol] 0 10*3/uL Normal 0-5 [facility] Comment on above: Performed By: #### L 100.0100, L500.4050 ####[facility] [address] [place], [address] Platelet mean volume (Bld) [Entitic vol] 12.5 fL High 6.2-12.0 [facility] Comment on above: Performed By: #### L 100.0100, L500.4050 ####[facility] [address] [place], [address] Platelets (Bld) [#/Vol] 87 10*3/uL Low 150-450 [facility] Comment on above: Performed By: #### L 100.0100, L500.4050 ####[facility] [address] [place], [address] RBC (Bld) [#/Vol] 3.86 10*6/uL Low 4.6-6.2 [facility] Comment on above: Performed By: #### L 100.0100, L500.4050 ####[facility] [address] [place], [address] RDW SD 46.8 fl High 35.1-43.9 [facility] Comment on above: Performed By: #### L 100.0100, L500.4050 ####[facility] [address] [place], [address] WBC (Bld) [#/Vol] 11.9 10*3/uL High 4.4-11.0 [facility] Comment on above: Performed By: #### L 100.0100, L500.4050 ####[facility] [address] [place], [address] Chest 1 View (Portable)on Chest 1 View (Portable) Normal [facility] Clarity (U)Ordered By: Juan Alberto Anderson on 08-29-2024 Urine clarity Clear Clear [facility] Color (U)Ordered By: Luis Carlos Anderson on 08-29-2024 Urine color determination Yellow Yellow [facility] Comprehensive Metabolic Prof ilon 08-29-2024 Albumin [Mass/Vol] 1.9 g/dL Low 3.2-5.0 [facility] Comment on above: Performed By: #### L 100.0100, L500.4050 ####[facility] [address] [place], [address] Albumin/Globulin [Mass ratio] 0.4 {ratio} Low 0.9-2.4 [facility] Comment on above: Performed By: #### L 100.0100, L500.4050 ####[facility] [address] [place], [address] ALK P 172 U/L High 45-117 [facility] Comment on above: Performed By: #### L 100.0100, L500.4050 ####[facility] [address] [place], [address] ALT [Catalytic activity/Vol] 26 U/L Normal 16-61 [facility] Comment on above: Performed By: #### L 100.0100, L500.4050 ####[facility] [address] [place], [address] AST [Catalytic activity/Vol] 32 U/L Normal 15-37 [facility] Comment on above: Performed By: #### L 100.0100, L500.4050 ####[facility] [address] [place], [address] Bilirubin [Mass/Vol] 1.40 mg/dL High 0.20-1.00 [facility] Comment on above: Result Comment: For patients on eltrombopag therapy, use of Dimension [facility] TBIL is not recommended. Performed By: #### L 100.0100, L500.4050 ####[facility] [address] [place], [address] BUN/CRE 13.5 RATIO Normal 10-20 [facility] Comment on above: Performed By: #### L 100.0100, L500.4050 ####[facility] [address] [place], [address] CA,Total 8.5 mg/dL Normal 8.5-10.1 [facility] Comment on above: Performed By: #### L 100.0100, L500.4050 ####[facility] [address] [place], [address] Chloride [Moles/Vol] 104 mmol/L Normal 98-107 [facility] Comment on above: Performed By: #### L 100.0100, L500.4050 ####[facility] [address] [place], [address] CO2 [Moles/Vol] 18.0 mmol/L Low 21.0-32.0 [facility] Comment on above: Performed By: #### L 100.0100, L500.4050 ####[facility] [address] [place], [address] Creatinine [Mass/Vol] 5.63 mg/dL High 0.70-1.30 [facility] Comment on above: Result Comment: The validity of the calculated GFR GFRAA in patients over70 years has not been determined. Clinical correlation isessential. Performed By: #### L 100.0100, L500.4050 ####[facility] [address] [place], [address] EST GFR - AA 13 mL/min Low >60 [facility] Comment on above: Result Comment: Afri can Dutch GFR Calc Performed By: #### L 100.0100, L500.4050 ####[facility] [address] [place], [address] GAP 12 Normal 5-15 [facility] Comment on above: Performed By: #### L 100.0100, L500.4050 ####[facility] [address] [place], [address] GFR/1.73 sq M.predicted among non-blacks MDRD (S/P/Bld) [Vol rate/Area] 11 mL/min/{1.73_m2} Low >60 [facility] Comment on above: Result Comment: Non- GFR Calc Performed By: #### L 100.0100, L500.4050 ####[facility] [address] [place], [address] Globulin (S) [Mass/Vol] 4.3 g/dL High 2.2-4.2 [facility] Comment on above: Performed By: #### L 100.0100, L500.4050 ####[facility] [address] [place], [address] Glucose [Mass/Vol] 257 mg/dL High 74-106 [facility] Comment on above: Result Comment: Gluc ose result greater than or equal to 200 mg/dLsuggests DIABETES MELLITUS per A.D.A. criteria. Performed By: #### L 100.0100, L500.4050 ####[facility] [address] [place], [address] Potassium [Moles/Vol] 3.9 mmol/L Normal 3.5-5.1 [facility] Comment on above: Performed By: #### L 100.0100, L500.4050 ####[facility] [address] [place], [address] Sodium [Moles/Vol] 134 mmol/L Low 136-145 [facility] Comment on above: Performed By: #### L 100.0100, L500.4050 ####[facility] [address] [place], [address] T PROT 6.2 g/dL Low 6.4-8.2 [facility] Comment on above: Performed By: #### L 100.0100, L500.4050 ####[facility] [address] [place], [address] Urea nitrogen [Mass/Vol] 76 mg/dL High 7-18 [facility] Comment on above: Performed By: #### L 100.0100, L500.4050 ####[facility] [address] [place], [address] Creatinine (U) [Mass/Vol]Ord ered By: Maria Guadalupe Shore on 08-29-2024 Urine creatinine measurement (mass/volume) 173.00 mg/dL NO RANGE EST. [facility] Emergency Department Summary on 08-29-2024 Emergency Department Summary Normal [facility] Epithelial cells.squamous LM Ql (Urine sed)Ordered By: Luis Carlos Anderson on 08-29-2024 Epithelial cells.squamous LM.HPF (Urine sed) [#/Area] 0 /[HPF] 0-5 [facility] Squamous epithelial cells detection in urine sediment by light microscopy 0 SEEN /hpf 0-5 [facility] Glucose Ql (U)Ordered By: Yaya Anderson on 08-29-2024 Glucose (U) [Mass/Vol] 50 mg/dL High Normal [facility] Urine glucose detection 50 mg/dl High Normal [facility] H AND P Exam - Hospitaliston 08-29-2024 H&P Exam - Hospitalist Normal [facility] International normalized rat io (INR) calculationOrdered By: Luis Carlos Anderson on 08-29-2024 INR Coag (Bld) [Relative time] 1.7 {INR} [facility] International normalized ratio (INR) calculation 1.7 [facility] Ketones Test strip Ql (U)Ord ered By: Luis Carlos Anderson on 08-29-2024 Ketones Ql (U) Negative Negative [facility] Leukocyte esterase Test stri p Ql (U)Ordered By: Luis Carlos Anderson on 08-29-2024 Urine leukocyte esterase detection by dipstick 500 /ul High Negative [facility] Lipaseon 08-29-2024 Lipase [Catalytic activity/Vol] 26 U/L Normal 13-75 [facility] Comment on above: Result Comment: Siddhartha bhat note:LIPASE revised reference range effective 22.New Lipase methodology. Expected to produce lower valuesthan the previous assay method.NEW Reference Range: 13 - 75 U/L Performed By: #### L 501.2450 ####[facility] [address] [place], [place], [address] Lipase measurementOrdered By : Luis Carlos Anderson on 08-29-2024 Lipase [Catalytic activity/Vol] 26 U/L 13-75 [facility] Comment on above: Please note:LIPASE r evised reference range effective 22. New Lipase methodology. Expected to produce lower values than the previous assay method. NEW Reference Range: 13 - 75 U/L Lipase measurement 26 U/L 13-75 [facility] Magnesiumon 08-29-2024 Magnesium [Mass/Vol] 2.7 mg/dL High 1.6-2.6 [facility] Comment on above: Order Comment: Comme nts: May add to ED labsComments: may add to ED labs Performed By: #### L 501.5200, L501.2300 ####[facility] [address] [place], [place], [id number] Magnesium measurementOrdered By: Maria Guadalupe Shore on 08-29-2024 Magnesium [Mass/Vol] 2.7 mg/dL High 1.6-2.6 [facility] Magnesium measurement 2.7 mg/dL High 1.6-2.6 [facility] Microscopic analysis of urin e for red blood cells (RBC)Ordered By: Luis Carlos Anderson on 08-29-2024 Urine RBC 5-10 SEEN /hpf 0-5 [facility] Microscopic analysis of urine for red blood cells (RBC) 5-10 SEEN /hpf 0-5 [facility] Mucus LM Ql (Urine sed)Order ed By: Luis Carlos Anderson on 08-29-2024 Mucus Ql (Urine sed) 1+ /hpf [facility] Mucus detection in urine sediment by light microscopy 1+ /hpf [facility] Nitrite Test strip Ql (U)Ord ered By: Luis Carlos Anderson on 08-29-2024 Nitrite Ql (U) Negative Negative [facility] Partial Thromboplast Timeon 08-29-2024 aPTT Coag (Bld) [Time] 40.9 s High 24.1-36.2 [facility] Comment on above: Performed By: #### L 503.5510, L300.4310, L300.3900 ####[facility] [address] [place], [place], [id number] Phosphoruson 08-29-2024 Phosphate [Mass/Vol] 4.9 mg/dL Normal 2.5-4.9 [facility] Comment on above: Order Comment: Comme nts: May add to ED labsComments: may add to ED labs Performed By: #### L 501.5200, L501.2300 ####[facility] [address] [place], [place], [address] Phosphorus measurementOrdere d By: Maria Gudaalupe Shore on 08-29-2024 Phosphorus Level 4.9 mg/dL 2.5-4.9 [facility] Phosphorus measurement 4.9 mg/dL 2.5-4.9 [facility] Protein Test strip Ql (U)Ord ered By: Luis Carlos Anderson on 08-29-2024 Protein Ql (U) 30 mg/dl High Negative [facility] Urine protein assay by test strip, semi-quantitative 30 mg/dl High Negative [facility] Prothrombin Time w/INRon INR Coag (PPP) [Relative time] 1.7 {INR} Normal [facility] Comment on above: Performed By: #### L 503.5510, L300.4310, L300.3900 ####[facility] [address] [place], [address] PT Coag (PPP) [Time] 20.0 s High 11.7-14.9 [facility] Comment on above: Performed By: #### L 503.5510, L300.4310, L300.3900 ####[facility] [address] [place], [address] Prothrombin timeOrdered By: Luis Carlos Anderson on 08-29-2024 PT Coag (PPP) [Time] 20.0 s High 11.7-14.9 [facility] Prothrombin time 20.0 SECONDS High 11.7-14.9 [facility] Sodium urOrdered By: Maria Guadalupe Shore on 08-29-2024 Sodium (U) [Moles/Vol] 30 mmol/L Normal Not Establ. [facility] Comment on above: Performed By: #### L 501.5500, L501.1200 ####[facility] [address] [place], [address] Sodium [Moles/Vol] 30 mmol/L Not Establ. [facility] Sodium ur 30 mmol/L Not Establ. [facility] Specific gravity (U) [Rel de nsity]Ordered By: Luis Carlos Anderson on 08-29-2024 Urine specific gravity measurement 1.015 1.002-1.030 [facility] Spine Cervical without Contr ason 08-29-2024 Spine Cervical without Contras Normal [facility] Spine Lumbar without Contras ton 08-29-2024 Spine Lumbar without Contrast Normal [facility] Spine Thoracic without Contr ason 08-29-2024 Spine Thoracic without Contras Normal [facility] Squamous epithelial cells de tection in urine sediment by light microscopyOrdered By: Luis Carlos Anderson on 08-29-2024 Epithelial cells.squamous LM Ql (Urine sed) 0 SEEN /hpf 0-5 [facility] Urinalysis, Completeon 08-29 BACTERIA RARE Normal None Seen [facility] Comment on above: Order Comment: PATTI CTOR TO SPECIFY Performed By: #### L 400.0001 ####[facility] [address] [place], [address] Mucus Ql (Urine sed) 1+ /hpf Normal [facility] Comment on above: Order Comment: PATTI CTOR TO SPECIFY Performed By: #### L 400.0001 ####[facility] [address] [place], [address] RBC 5-10 SEEN Normal [address] Comment on above: Order Comment: PATTI CTOR TO SPECIFY Performed By: #### L 400.0001 ####[facility] [address] [place], [address] WBC 10-25 SEEN Normal [address] [place] [address] Comment on above: Order Comment: PATTI CTOR TO SPECIFY Performed By: #### L 400.0001 ####[facility] [address] [place], [address] EPI,SQUAMOUS 0 SEEN Normal [address] [place] [address] Comment on above: Order Comment: PATTI CTOR TO SPECIFY Performed By: #### L 400.0001 ####[facility] [address] [place], [address] Urine blood detectionOrdered By: Luis Carlos Anderson on 08-29-2024 Urine Occult Blood 150 /ul High Negative [facility] Urine blood detection 150 /ul High Negative [facility] Urine clarityOrdered By: Joann Anderson on 08-29-2024 Clarity (U) Clear Clear [facility] Urine color determinationOrd ered By: Luis Carlos Anderson on 08-29-2024 Color (U) Yellow Yellow [facility] Urine creatinine measurement (mass/volume)Ordered By: Maria Guadalupe White on 08-29-2024 Creatinine (U) [Mass/Vol] 173.00 mg/dL NO RANGE EST. [facility] Urine cultureOrdered By: Joann Anderson on 08-29-2024 Bacteria identified Cx Nom (U) Culture exhibits no growth. [facility] Urine culture Culture exhibits no growth. [facility] Urine glucose detectionOrder ed By: Luis Carlos Anderson on 08-29-2024 Glucose Ql (U) 50 mg/dl High Normal [facility] Urine ketones detection by t est stripOrdered By: Luis Carlos Anderson on 08-29-2024 Urine ketones detection by test strip Negative Negative [facility] Urine leukocyte esterase det ection by dipstickOrdered By: Luis Carlos Anderson on 08-29-2024 Leukocyte esterase Test strip Ql (U) 500 /ul High Negative [facility] Urine pHOrdered By: Luis Carlos hammond on 08-29-2024 pH (U) 6.0 [pH] 5.0 - 8.0 [facility] Urine sediment bacteria coun t by microscopy (number/high power field)Ordered By: Luis Carlos Anderson on 08-29-2024 Bacteria LM.HPF (Urine sed) [#/Area] RARE /hpf None Seen [facility] Urine specific gravity measu rementOrdered By: Luis Carlos Anderson on 08-29-2024 Specific gravity (U) [Rel density] 1.015 1.002-1.030 [facility] Urine total bilirubin detect ion by test stripOrdered By: Luis Carlos Anderson on 08-29-2024 Urine total bilirubin detection by test strip 1 mg/dL High Normal [facility] Urine urobilinogen measureme ntOrdered By: Luis Carlos Anderson on 08-29-2024 Urobilinogen Ql (U) 1 mg/dl High Normal [facility] Urobilinogen Ql (U)Ordered B y: Luis Carlos Anderson on 08-29-2024 Urobilinogen (U) [Mass/Vol] 1 mg/dL High Normal [facility] White blood cell countOrdere d By: Luis Carlos Anderson on 08-29-2024 Urine WBC 10-25 SEEN /hpf 0-5 [facility] White blood cell count 10-25 SEEN /hpf 0-5 [facility] White blood cell count 10-25 SEEN /hpf 0-5 [facility] aPTT Coag (PPP) [Time]Ordere d By: Luis Carlos Anderson on 08-29-2024 aPTT Coag (Bld) [Time] 40.9 s High 24.1-36.2 [facility] Activated partial thromboplastin time (aPTT) in platelet poor plasma by coagulation a 40.9 Seconds High 24.1-36.2 [facility] pH (U)Ordered By: Ashu on 08-29-2024 Urine pH 6.0 5.0 - 8.0 [facility] Emergency Department Summary on 08-21-2024 Emergency Department Summary Normal [facility] Lumbar Spine 2 or 3 Viewson 08-21-2024 Lumbar Spine 2 or 3 Views Normal [facility] Vital Signs Date Time Vital Sign Value Performing Clinician Facility 01-05-2025 16:00-0400 Body temperature 98.1 [degF] No Primary Care Physician [facility] 01-05-2025 16:00-0400 Diastolic blood pressure 60 mm[Hg] No Primary Care Physician [facility] 01-05-2025 16:00-0400 Heart rate 73 /min No Primary Care Physician [facility] 01-05-2025 16:00-0400 Respiratory rate 16 /min No Primary Care Physician [facility] 01-05-2025 16:00-0400 SaO2% (BldA) [Mass fraction] 94 % No Primary Care Physician [facility] 01-05-2025 16:00-0400 Systolic blood pressure 103 mm[Hg] No Primary Care Physician [facility] 01-05-2025 04:44-0400 Body mass index (BMI) [Ratio] 29.9 kg/m2 No Primary Care Physician [facility] 01-05-2025 04:44-0400 Body weight 92.2 kg No Primary Care Physician [facility] 01-02-2025 10:11-0400 Body height 175.26 cm No Primary Care Physician [facility] 01-02-2025 06:34-0400 Body temperature 97.8 [degF] No Primary Care Physician [facility] 01-02-2025 06:34-0400 Diastolic blood pressure 73 mm[Hg] No Primary Care Physician [facility] 01-02-2025 06:34-0400 Heart rate 68 /min No Primary Care Physician [facility] 01-02-2025 06:34-0400 Respiratory rate 20 /min No Primary Care Physician [facility] 01-02-2025 06:34-0400 SaO2% (BldA) [Mass fraction] 100 % No Primary Care Physician [facility] 01-02-2025 06:34-0400 Systolic blood pressure 105 mm[Hg] No Primary Care Physician [facility] 01-02-2025 02:59-0400 Body height 175.26 cm No Primary Care Physician [facility] 01-02-2025 02:59-0400 Body mass index (BMI) [Ratio] 27.5 kg/m2 No Primary Care Physician [facility] 01-02-2025 02:59-0400 Body weight 84.5 kg No Primary Care Physician [facility] 12-30-2024 05:24-0400 Body temperature 97.9 [degF] No Primary Care Physician [facility] 12-30-2024 05:24-0400 Diastolic blood pressure 52 mm[Hg] No Primary Care Physician [facility] 12-30-2024 05:24-0400 Heart rate 71 /min No Primary Care Physician [facility] 12-30-2024 05:24-0400 Respiratory rate 18 /min No Primary Care Physician [facility] 12-30-2024 05:24-0400 SaO2% (BldA) [Mass fraction] 93 % No Primary Care Physician [facility] 12-30-2024 05:24-0400 Systolic blood pressure 93 mm[Hg] No Primary Care Physician [facility] 12-30-2024 01:07-0400 Body height 175.26 cm No Primary Care Physician [facility] 12-30-2024 01:07-0400 Body mass index (BMI) [Ratio] 28.4 kg/m2 No Primary Care Physician [facility] 12-30-2024 01:07-0400 Body weight 87.3 kg No Primary Care Physician [facility] 12-26-2024 14:27-0400 Body temperature 97 [degF] No Primary Care Physician [facility] 12-26-2024 14:27-0400 Diastolic blood pressure 58 mm[Hg] No Primary Care Physician [facility] 12-26-2024 14:27-0400 Heart rate 64 /min No Primary Care Physician [facility] 12-26-2024 14:27-0400 Respiratory rate 16 /min No Primary Care Physician [facility] 12-26-2024 14:27-0400 SaO2% (BldA) [Mass fraction] 97 % No Primary Care Physician [facility] 12-26-2024 14:27-0400 Systolic blood pressure 90 mm[Hg] No Primary Care Physician [facility] 12-26-2024 10:00-0400 Body height 175.26 cm No Primary Care Physician [facility] 12-26-2024 10:00-0400 Body mass index (BMI) [Ratio] 29.7 kg/m2 No Primary Care Physician [facility] 12-26-2024 10:00-0400 Body weight 91.4 kg No Primary Care Physician [facility] 12-02-2024 12:13-0400 Body temperature 98.7 [degF] No Primary Care Physician [facility] 12-02-2024 12:13-0400 Diastolic blood pressure 68 mm[Hg] No Primary Care Physician [facility] 12-02-2024 12:13-0400 Heart rate 86 /min No Primary Care Physician [facility] 12-02-2024 12:13-0400 Respiratory rate 18 /min No Primary Care Physician [facility] 12-02-2024 12:13-0400 SaO2% (BldA) [Mass fraction] 97 % No Primary Care Physician [facility] 12-02-2024 12:13-0400 Systolic blood pressure 117 mm[Hg] No Primary Care Physician [facility] 12-02-2024 02:57-0400 Body mass index (BMI) [Ratio] 33 kg/m2 No Primary Care Physician [facility] 12-02-2024 02:57-0400 Body weight 101.6 kg No Primary Care Physician [facility] 11-29-2024 09:53-0400 Body height 175.26 cm No Primary Care Physician [facility] 11-25-2024 18:31-0400 Body temperature 98.2 [degF] No Primary Care Physician [facility] 11-25-2024 18:31-0400 Diastolic blood pressure 80 mm[Hg] No Primary Care Physician [facility] 11-25-2024 18:31-0400 Heart rate 97 /min No Primary Care Physician [facility] 11-25-2024 18:31-0400 Respiratory rate 18 /min No Primary Care Physician [facility] 11-25-2024 18:31-0400 SaO2% (BldA) [Mass fraction] 98 % No Primary Care Physician [facility] 11-25-2024 18:31-0400 Systolic blood pressure 122 mm[Hg] No Primary Care Physician [facility] 11-24-2024 15:17-0400 Body weight 102.7 kg No Primary Care Physician [facility] 11-21-2024 05:32-0400 Body mass index (BMI) [Ratio] 33.4 kg/m2 No Primary Care Physician [facility] 11-21-2024 05:00-0400 Heart rate 77 /min No Primary Care Physician [facility] 11-21-2024 04:51-0400 Body temperature 98.2 [degF] No Primary Care Physician [facility] 11-21-2024 04:51-0400 Diastolic blood pressure 57 mm[Hg] No Primary Care Physician [facility] 11-21-2024 04:51-0400 Respiratory rate 16 /min No Primary Care Physician [facility] 11-21-2024 04:51-0400 SaO2% (BldA) [Mass fraction] 97 % No Primary Care Physician [facility] 11-21-2024 04:51-0400 Systolic blood pressure 127 mm[Hg] No Primary Care Physician [facility] 11-21-2024 01:32-0400 Body height 175.26 cm No Primary Care Physician [facility] 11-21-2024 01:32-0400 Body mass index (BMI) [Ratio] 34.3 kg/m2 No Primary Care Physician [facility] 11-21-2024 01:32-0400 Body weight 105.4 kg No Primary Care Physician [facility] 11-12-2024 18:03-0400 SaO2% (BldA) [Mass fraction] 99 % KATHIE LEMOS [facility] Comment on above: Order Comment: Specimen Type: ARTERIAL B LOOD SPECIMENOrdering Facility: [facility] Address: [address] [place] [id number] Performed By: #### A LLBG ####[facility] LABCLIA [id number] [place] [address] [place] 11-10-2024 23:40-0400 Body temperature 97.8 [degF] No Primary Care Physician [facility] 11-10-2024 23:40-0400 Diastolic blood pressure 70 mm[Hg] No Primary Care Physician [facility] 11-10-2024 23:40-0400 Heart rate 110 /min No Primary Care Physician [facility] 11-10-2024 23:40-0400 Respiratory rate 18 /min No Primary Care Physician [facility] 11-10-2024 23:40-0400 SaO2% (BldA) [Mass fraction] 97 % No Primary Care Physician [facility] 11-10-2024 23:40-0400 Systolic blood pressure 116 mm[Hg] No Primary Care Physician [facility] 11-10-2024 04:54-0400 Body mass index (BMI) [Ratio] 36.7 kg/m2 No Primary Care Physician [facility] 11-10-2024 04:54-0400 Body weight 112.8 kg No Primary Care Physician [facility] 11-09-2024 14:30-0400 Body height 175.26 cm No Primary Care Physician [facility] 10-29-2024 01:23-0400 Body temperature 97.4 [degF] No Primary Care Physician [facility] 10-29-2024 01:23-0400 Diastolic blood pressure 54 mm[Hg] No Primary Care Physician [facility] 10-29-2024 01:23-0400 Heart rate 77 /min No Primary Care Physician [facility] 10-29-2024 01:23-0400 Respiratory rate 14 /min No Primary Care Physician [facility] 10-29-2024 01:23-0400 SaO2% (BldA) [Mass fraction] 97 % No Primary Care Physician [facility] 10-29-2024 01:23-0400 Systolic blood pressure 97 mm[Hg] No Primary Care Physician [facility] 10-28-2024 21:43-0400 Body mass index (BMI) [Ratio] 30.4 kg/m2 No Primary Care Physician [facility] 10-28-2024 21:43-0400 Body weight 93.1 kg No Primary Care Physician [facility] 10-28-2024 17:13-0400 Body height 175.01 cm No Primary Care Physician [facility] 10-04-2024 21:45-0500 Diastolic blood pressure 89 mm[Hg] Maurice wen MD Work Phone: [facility] 10-04-2024 21:45-0500 Heart rate 94 /min Maurice Fitch MD Work Phone: [phone] [place] [address] 10-04-2024 21:45-0500 Respiratory rate 18 /min Maurice Fitch MD Work Phone: [facility] 10-04-2024 21:45-0500 SaO2% (BldA) [Mass fraction] 100 % Maurice Fitch MD Work Phone: [phone] [place] [address] 10-04-2024 21:45-0500 Systolic blood pressure 152 mm[Hg] Maurice parada MD Work Phone: [facility] 10-04-2024 12:03-0500 Body temperature 97.59 [degF] Maurice Fitch MD Work Phone: [facility] 10-04-2024 12:03-0500 Body weight 117.48 kg Maurice Fitch MD Work Phone: [facility] 09-29-2024 10:21-0500 Body temperature 97.3 [degF] No Primary Care Physician [facility] 09-29-2024 10:21-0500 Diastolic blood pressure 74 mm[Hg] No Primary Care Physician [facility] 09-29-2024 10:21-0500 Heart rate 81 /min No Primary Care Physician [facility] 09-29-2024 10:21-0500 Respiratory rate 18 /min No Primary Care Physician [facility] 09-29-2024 10:21-0500 Systolic blood pressure 138 mm[Hg] No Primary Care Physician [facility] 09-15-2024 03:49-0500 Body temperature 97.8 [degF] No Primary Care Physician [facility] 09-15-2024 03:49-0500 Diastolic blood pressure 70 mm[Hg] No Primary Care Physician [facility] 09-15-2024 03:49-0500 Heart rate 80 /min No Primary Care Physician [facility] 09-15-2024 03:49-0500 Respiratory rate 17 /min No Primary Care Physician [facility] 09-15-2024 03:49-0500 SaO2% (BldA) [Mass fraction] 96 % No Primary Care Physician [facility] 09-15-2024 03:49-0500 Systolic blood pressure 142 mm[Hg] No Primary Care Physician [facility] 09-14-2024 04:07-0500 Body mass index (BMI) [Ratio] 36.7 kg/m2 No Primary Care Physician [facility] 09-14-2024 04:07-0500 Body weight 112.8 kg No Primary Care Physician [facility] 09-10-2024 14:03-0500 Body height 175.26 cm No Primary Care Physician [facility] 09-07-2024 01:24-0500 Inhaled oxygen concentration 21 % No Primary Care Physician [facility] 09-06-2024 05:00-0500 Inhaled oxygen flow rate 8 L/min No Primary Care Physician [facility] 09-02-2024 15:36-0500 Body weight 104 kg No Primary Care Physician [facility] 09-02-2024 14:54-0500 Body temperature 98.1 [degF] No Primary Care Physician [facility] 09-02-2024 14:54-0500 Diastolic blood pressure 62 mm[Hg] No Primary Care Physician [facility] 09-02-2024 14:54-0500 Heart rate 60 /min No Primary Care Physician [facility] 09-02-2024 14:54-0500 Respiratory rate 18 /min No Primary Care Physician [facility] 09-02-2024 14:54-0500 SaO2% (BldA) [Mass fraction] 99 % No Primary Care Physician [facility] 09-02-2024 14:54-0500 Systolic blood pressure 118 mm[Hg] No Primary Care Physician [facility] 09-02-2024 03:57-0500 Body mass index (BMI) [Ratio] 33.8 kg/m2 No Primary Care Physician [facility] 08-21-2024 16:33-0500 Body temperature 98.5 [degF] No Primary Care Physician [facility] 08-21-2024 16:33-0500 Diastolic blood pressure 78 mm[Hg] No Primary Care Physician [facility] 08-21-2024 16:33-0500 Heart rate 61 /min No Primary Care Physician [facility] 08-21-2024 16:33-0500 Respiratory rate 12 /min No Primary Care Physician [facility] 08-21-2024 16:33-0500 SaO2% (BldA) [Mass fraction] 97 % No Primary Care Physician [facility] 08-21-2024 16:33-0500 Systolic blood pressure 114 mm[Hg] No Primary Care Physician [facility] 08-21-2024 13:52-0500 Body mass index (BMI) [Ratio] 33 kg/m2 No Primary Care Physician [facility] 08-21-2024 13:52-0500 Body weight 101.5 kg No Primary Care Physician [facility] Encounters Encounter Date Encounter Type Care Provider Facility Start: 01-05-2025 Dr. Hill Acuña MD [facility] Work Phone: Start: 01-04-2025 Dr. Hill Acuña MD [facility] Work Phone: Start: 01-03-2025 Dr. Hill Acuña MD [facility] Work Phone: Start: 01-02-2025 ambulatory Buster Fuchs Fac ility:[facility] Start: 01-02-2025 End: 01-05-2025 Evaluation and management of inpatient No Primary Care Physician [facility] Work Phone: Start: 01-02-2025 End: 01-05-2025 Dr. Buster Fuchs MD -Progressive Care Unit Work Phone: Start: 12-30-2024 End: 12-30-2024 No Primary Care Physician -Emergency Department Work Phone: Start: 12-30-2024 End: 12-30-2024 Emergency department patient visit No Primary Care Physician [facility] Work Phone: Start: 12-26-2024 End: 12-26-2024 No Primary Care Physician -Emergency Department Work Phone: Start: 12-26-2024 End: 12-26-2024 Emergency department patient visit No Primary Care Physician [facility] Work Phone: Start: 12-15-2024 End: 12-15-2024 ambulatory No Primary Care Physician [facility] Work Phone: Start: 12-15-2024 End: 12-15-2024 Josy Elias BAG HANGER-C -Ultrasound [facility] Work Phone: Start: 12-15-2024 End: 12-15-2024 ambulatory Josy Elias Facility:[facility] Start: 12-07-2024 End: 12-10-2024 ambulatory Eva Pichardo MD Work Phone: Urology Start: 12-07-2024 End: 12-07-2024 Josy Elias NP-C -[facility] Start: 12-07-2024 End: 12-07-2024 ambulatory [facility] Facility:[facility] Start: 12-02-2024 Dr. Hill Acuña MD [facility] Work Phone: Start: 12-01-2024 Dr. Hill cAuña MD - [facility] Work Phone: Start: 11-30-2024 Dr. Hill Acuña MD [facility] Work Phone: Start: 11-29-2024 Dr. Hill Acuña MD [facility] Work Phone: Start: 11-28-2024 ambulatory Hill Acuña [facility] Start: 11-28-2024 End: 12-02-2024 Evaluation and management of inpatient Hill Acuña Facility:[facility] Start: 11-28-2024 End: 12-02-2024 Dr. Hill Acuña MD -Progressive Care Unit Work Phone: Start: 11-25-2024 Dr. Anurag Irene MD -[facility] Work Phone: Start: 11-24-2024 Dr. Anurag Irene MD -[facility] Work Phone: Start: 11-23-2024 ambulatory [facility] Facility: [facility] Start: 11-23-2024 End: 11-25-2024 Evaluation and management of inpatient [facility] Facility:[facility] Start: 11-23-2024 End: 11-25-2024 Dr. Anurag Irene MD -Medical Surgical 3 Work Phone: Start: 11-22-2024 Dr. Anurag Irene MD -[facility] Work Phone: Start: 11-21-2024 ambulatory Jae Hughes ility:[facility] Start: 11-21-2024 observation encounter No Prima ry Care Physician [facility] Work Phone: Start: 11-21-2024 Dr. Jae Ash DO -Medical Surgical 3 Work Phone: Start: 11-18-2024 Patient encounter status Jeremi Abreu RN Work Phone: [facility] Work Phone: Start: 11-18-2024 End: 11-18-2024 Telephone encounter Jeremi Abreu RN Work Phone: [facility] Center Comment on above: Outcome Liver Transp lant Selection Committee Start: 11-15-2024 End: 11-15-2024 Evaluation and management of inpatient Izabela Estuardo Candice DDS Work Phone: Dentistry Comment on above: Liver transplant can didate (Primary Dx); Pre-operative clearance Start: 11-15-2024 End: 11-15-2024 Preoperative state Izabela Harvey DDS Work Phone: [facility] Start: 11-15-2024 End: 11-15-2024 Social Work Marah Arauz [employer] Work Phone: Transplant Center Start: 11-12-2024 End: 11-12-2024 Patient encounter status Lizett Guzman [facility] Start: 11-12-2024 End: 11-12-2024 Orders Only Liver Txp Coordinator Work Phone: Transplant Center Comment on above: 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 Kathie Lemos MD -[facility] Work Phone: Start: 11-09-2024 Dr. Kathie Lemos MD -[facility] Work Phone: Start: 11-08-2024 Dr. Kathie Lemos MD -[facility] Work Phone: Start: 11-07-2024 Dr. Hill Acuña MD -[facility] Work Phone: Start: 11-06-2024 Dr. Hill Acuña MD -[facility] Work Phone: Start: 11-05-2024 Dr. Hill Acuña MD -[facility] Work Phone: Start: 11-04-2024 Dr. Hill Acuña MD -[facility] Work Phone: Start: 11-03-2024 Dr. Hill Acuña MD -[facility] Work Phone: Start: 11-02-2024 Dr. Hill Acuña MD -[facility] Work Phone: Start: 11-01-2024 Dr. Hill Acuña MD -[facility] Work Phone: Start: 11-01-2024 Niranjan Li [facility] Start: 10-31-2024 Dr. Buster Fuchs MD -[place] [facility] Work Phone: Start: 10-30-2024 Niranjan Li [facility] Start: 10-30-2024 Dr. Buster Fuchs MD -[place] [facility] Work Phone: Start: 10-29-2024 Dr. Bola Meraz DO -[facility] -[facility] Start: 10-29-2024 ambulatory John Paul Zelalempatrick [place] ity:[facility] Start: 10-29-2024 End: 11-11-2024 Evaluation and management of inpatient Dr. Hill Caro DO -Intensive Care Unit Work Phone: Start: 10-29-2024 End: 11-11-2024 Dr. Kathie Lemos MD -Progressive Care Unit Work Phone: Start: 10-19-2024 ambulatory No Primary Car e Physician Facility:[facility] Start: 10-04-2024 End: 10-04-2024 Emergency department patient visit MAURICE FITCH [facility] Emergency Medicine Comment on above: Other ascites (Prima ry Dx); Abdominal pain, generalized; Other cirrhosis of liver; Peripheral edema; Coagulopathy (Multi); Hyperbilirubinemia; Cirrhosis of liver with ascites, unspecified hepatic cirrhosis type (Multi) Start: 09-29-2024 ambulatory No Primary Car e Physician Facility:[facility] Start: 09-29-2024 Non-patient / Non-visit Jasmine nunez BAG HANGER-C -[facility] Start: 09-29-2024 Jasmine Morocho BAG HANGER-C - [facility] Start: 09-29-2024 End: 09-29-2024 ambulatory No Primary Care Physician [facility] Work Phone: Start: 09-29-2024 End: 09-29-2024 Patient encounter procedure No Primary Care Physician -Ultrasound, [facility] Work Phone: Start: 09-29-2024 End: 09-29-2024 No Primary Care Physician -Ultrasound, [facility] Work Phone: Start: 09-29-2024 End: 09-29-2024 ambulatory No Primary Care Physician Facility:[facility] Start: 09-14-2024 Non-patient / Non-visit Dr. Boone James [facility] Work Phone: Start: 09-14-2024 Dr. Boone Izquierdo [facility] Work Phone: Start: 09-13-2024 Non-patient / Non-visit Dr. Boone James [facility] Work Phone: Start: 09-13-2024 Dr. Boone Izquierdo [facility] Work Phone: Start: 09-12-2024 Non-patient / Non-visit Dr. Slaughter [facility] Work Phone: Start: 09-12-2024 Dr. Rowe [facility] Work Phone: Start: 09-11-2024 Non-patient / Non-visit Dr. Slaughter [facility] Work Phone: Start: 09-11-2024 Dr. Rowe [facility] Work Phone: Start: 09-10-2024 Non-patient / Non-visit Dr. Slaughter [facility] Work Phone: Start: 09-10-2024 Dr. Rowe [facility] Work Phone: Start: 09-09-2024 Non-patient / Non-visit Dr. Slaughter [facility] Work Phone: Start: 09-09-2024 Dr. Rowe [facility] Work Phone: Start: 09-08-2024 Non-patient / Non-visit Dr. Anurag Irene [facility] Work Phone: Start: 09-08-2024 Dr. Anurag Murray [facility] Work Phone: Start: 09-07-2024 Non-patient / Non-visit Dr. Anurag Irene MD [facility] Inpatient [facility]icians Work Phone: Start: 09-07-2024 Dr. Anurag Irene MD -[facility] Work Phone: Start: 09-06-2024 Non-patient / Non-visit Dr. Anurag Irene MD [facility] Inpatient [facility] Work Phone: Start: 09-06-2024 Dr. Anurag Irene MD [facility] Work Phone: Start: 09-05-2024 ambulatory Hill de Kyle Facil ty:[facility] Start: 09-05-2024 End: 09-15-2024 Evaluation and management of inpatient Dr. Boone Izquierdo -Progressive Care Unit Work Phone: Start: 09-05-2024 End: 09-15-2024 [facility] Start: 09-02-2024 Non-patient / Non-visit Dr. Lissette Carlin [facility] In[facility] Work Phone: Start: 09-02-2024 Dr. Rick gutierrez [facility] Work Phone: Start: 09-01-2024 Non-patient / Non-visit Niranjan Frie nd DO -[facility] Start: 09-01-2024 Niranjan Friend DO -[facility] Start: 09-01-2024 Non-patient / Non-visit Dr. Lissette Carlin [facility] Work Phone: Start: 09-01-2024 Dr. Rick gutierrez [facility] Work Phone: Start: 08-31-2024 Non-patient / Non-visit Niranjan Frie nd DO -[facility] Start: 08-31-2024 Niranjan Friend DO -[facility] Start: 08-31-2024 Non-patient / Non-visit Dr. Lissette Carlin [facility] Work Phone: Start: 08-31-2024 Dr. Rick gutierrez [facility] Work Phone: Start: 08-31-2024 Non-patient / Non-visit Dr. Bola Patiño own DO -[facility] Start: 08-31-2024 Dr. Bola Meraz DO -[facility] Start: 08-30-2024 Non-patient / Non-visit Niranjanparker Coles nd DO -[facility] Start: 08-30-2024 Niranjan Friend DO -[facility] Start: 08-30-2024 Non-patient / Non-visit Dr. Lissette Carlin [facility] Work Phone: Start: 08-30-2024 Dr. Rick gutierrez [facility] Work Phone: Start: 08-30-2024 Non-patient / Non-visit Dr. Bola Patiño own DO -[facility] Start: 08-30-2024 Dr. Bola Meraz DO -[facility] Start: 08-29-2024 ambulatory Rick Carlin Facilit y:[facility] Start: 08-29-2024 End: 09-02-2024 Evaluation and management of inpatient Dr. Rick Carlin DO -Intensive Care Unit Work Phone: Start: 08-29-2024 End: 09-02-2024 Dr. Rick Carlin DO -Intensive Care Unit Work Phone: Start: 08-21-2024 End: 08-21-2024 Dr. Danny Hutton DO -Emergency Department Work Phone: Start: 08-21-2024 End: 08-21-2024 Emergency department patient visit Dr. Danny Hutton DO -Emergency Department Work Phone: Procedures Date Procedure Procedure Detail Performing Clinician Start: 01-05-2025 Blood count smear mc rscp w/mnl difrntl wbc count No Primary Care Physician Start: 01-05-2025 Estimated creatinine clearance No Primary Care Physician Start: 01-05-2025 Mean corpuscular hem oglobin concentration determination No Primary Care Physician Start: 01-05-2025 Nucleated red blood cell count procedure No Primary Care Physician Start: 01-05-2025 Platelet mean volume determination No Primary Care Physician Start: 01-04-2025 Serum inorganic phos phate measurement No Primary Care Physician Start: 01-02-2025 Urine culture No Primar y Care Physician Start: 01-02-2025 CT cervical spine wi thout contrast No Primary Care Physician Start: 01-02-2025 CT of head without contrast No Primary Care Physician Start: 01-02-2025 Urine microscopy: red cells No Primary Care Physician Start: 01-02-2025 Urnls dip stick/tabl et reagent auto microscopy No Primary Care Physician Start: 01-02-2025 CT of abdomen and pe lvis without contrast No Primary Care Physician Start: 01-02-2025 Blood count smear mc rscp w/mnl difrntl wbc count No Primary Care Physician Start: 01-02-2025 Estimated creatinine clearance No Primary Care Physician Start: 01-02-2025 Mean corpuscular hem oglobin concentration determination No Primary Care Physician Start: 01-02-2025 Nucleated red blood cell count procedure No Primary Care Physician Start: 01-02-2025 Platelet mean volume determination No Primary Care Physician Start: 01-02-2025 Triacylglycerol lipa se measurement No Primary Care Physician Start: 12-30-2024 Urine culture No Primar y Care Physician Start: 12-30-2024 Urine microscopy: red cells No Primary Care Physician Start: 12-30-2024 Urnls dip stick/tabl et reagent auto microscopy No Primary Care Physician Start: 12-30-2024 X-ray of chest, PA a nd lateral views No Primary Care Physician Start: 12-30-2024 Blood count smear mc rscp w/mnl difrntl wbc count No Primary Care Physician Start: 12-30-2024 Estimated creatinine clearance No Primary Care Physician Start: 12-30-2024 Mean corpuscular hem oglobin concentration determination No Primary Care Physician Start: 12-30-2024 Nucleated red blood cell count procedure No Primary Care Physician Start: 12-30-2024 Platelet mean volume determination No Primary Care Physician Start: 12-26-2024 Urine culture No Primar y Care Physician Start: 12-26-2024 Urine microscopy: red cells No Primary Care Physician Start: 12-26-2024 Urnls dip stick/tabl et reagent auto microscopy No Primary Care Physician Start: 12-26-2024 CT of abdomen and pe lvis without contrast No Primary Care Physician Start: 12-26-2024 Blood count smear mc rscp w/mnl difrntl wbc count No Primary Care Physician Start: 12-26-2024 Calculation of inter national normalized ratio No Primary Care Physician Start: 12-26-2024 Estimated creatinine clearance No Primary Care Physician Start: 12-26-2024 Mean corpuscular hem oglobin concentration determination No Primary Care Physician Start: 12-26-2024 Nucleated red blood cell count procedure No Primary Care Physician Start: 12-26-2024 Platelet mean volume determination No Primary Care Physician Start: 12-26-2024 Triacylglycerol lipa se measurement No Primary Care Physician Start: 12-15-2024 Ultrasonography of abdomen No Primary Care Physician Start: 12-07-2024 Blood count smear mc rscp w/mnl difrntl wbc count No Primary Care Physician Start: 12-07-2024 Mean corpuscular hem oglobin concentration determination No Primary Care Physician Start: 12-07-2024 Nucleated red blood cell count procedure No Primary Care Physician Start: 12-07-2024 Platelet mean volume determination No Primary Care Physician Start: 12-02-2024 Blood count smear mc rscp w/mnl difrntl wbc count No Primary Care Physician Start: 12-02-2024 Estimated creatinine clearance No Primary Care Physician Start: 12-02-2024 Mean corpuscular hem oglobin concentration determination No Primary Care Physician Start: 12-02-2024 Nucleated red blood cell count procedure No Primary Care Physician Start: 12-02-2024 Platelet mean volume determination No Primary Care Physician Start: 12-02-2024 Serum inorganic phos phate measurement No Primary Care Physician Start: 11-29-2024 Calculation of inter national normalized ratio No Primary Care Physician Start: 11-28-2024 Assay of lactate No Ivonne alex Care Physician Start: 11-28-2024 Urine microscopy: red cells No Primary Care Physician Start: 11-28-2024 Urnls dip stick/tabl et reagent auto microscopy No Primary Care Physician Start: 11-28-2024 Urine culture No Primar y Care Physician Start: 11-28-2024 Triacylglycerol lipa se measurement No Primary Care Physician Start: 11-28-2024 Computed tomography of abdomen and pelvis with intravenous contrast No Primary Care Physician Start: 11-25-2024 Blood count smear mc rscp w/mnl difrntl wbc count No Primary Care Physician Start: 11-25-2024 Estimated creatinine clearance No Primary Care Physician Start: 11-25-2024 Mean corpuscular hem oglobin concentration determination No Primary Care Physician Start: 11-25-2024 Nucleated red blood cell count procedure No Primary Care Physician Start: 11-25-2024 Platelet mean volume determination No Primary Care Physician Start: 11-24-2024 Calculation of inter national normalized ratio No Primary Care Physician Start: 11-23-2024 Plain x-ray of pelvi s and lower extremity No Primary Care Physician Start: 11-21-2024 Urine culture No Primar y Care Physician Start: 11-21-2024 Assay of lactate No [facility] Care Physician Start: 11-21-2024 Urine microscopy: red cells No Primary Care Physician Start: 11-21-2024 Urnls dip stick/tabl et reagent auto microscopy No Primary Care Physician Start: 11-21-2024 Plain chest X-ray No Pr ary Care Physician Start: 11-18-2024 Antibody screen KATHIE P IERCE Comment on above: Order Comment: Speci men Type: BLOOD SPECIMENOrdering Facility: [facility] Address: [address] [place] [address] Performed By: #### T SCR ####CC MAIN BLOOD BANKCLIA [id number] [place] [address] [place] Start: 11-16-2024 End: 11-16-2024 Colonoscopy Jeremi Abreu RN Work Phone: Start: 11-15-2024 Antibody screen KATHIE P IERCE Comment on above: Order Comment: Speci men Type: BLOOD SPECIMENOrdering Facility: [facility] Address: [address] [place] [address] Performed By: #### T SCR ####CC MAIN BLOOD BANKCLIA [id number] [address] Start: 11-13-2024 Lipid 1996 panel - S sandie or Plasma Marah Arauz [employer] Work Phone: Start: 11-12-2024 Antibody screen KATHIE P IERCE Comment on above: Order Comment: Speci men Type: BLOOD SPECIMENOrdering Facility: [facility] Address: [address] [place] [address] Performed By: #### T SCR ####CC MAIN BLOOD BANKCLIA [id number] [address] Start: 11-10-2024 Urine microscopy: red cells No Primary Care Physician Start: 11-10-2024 Urnls dip stick/tabl et reagent auto microscopy No Primary Care Physician Start: 11-10-2024 Calculation of inter national normalized ratio No Primary Care Physician Start: 11-10-2024 Blood count smear mc rscp w/mnl difrntl wbc count No Primary Care Physician Start: 11-10-2024 Estimated creatinine clearance No Primary Care Physician Start: 11-10-2024 Mean corpuscular hem oglobin concentration determination No Primary Care Physician Start: 11-10-2024 Nucleated red blood cell count procedure No Primary Care Physician Start: 11-10-2024 Platelet mean volume determination No Primary Care Physician Start: 11-09-2024 Computed tomography of abdomen and pelvis with intravenous contrast No Primary Care Physician Start: 11-09-2024 Plain X-ray abdomen No Primary Care Physician Start: 11-09-2024 Assay of lactate No [facility] Care Physician Start: 11-08-2024 Serum inorganic phos phate measurement No Primary Care Physician Start: 11-08-2024 Triacylglycerol lipa se measurement No Primary Care Physician Start: 11-03-2024 Myelocyte percent differential count No Primary Care Physician Start: 10-30-2024 Clostridium difficil e detection No Primary Care Physician Start: 10-30-2024 Lactoferrin measurement No Primary Care Physician Start: 10-30-2024 Nucleic acid assay No P rimary Care Physician Start: 10-30-2024 Ova OR parasites identification No Primary Care Physician Start: 10-30-2024 Ova&parasites direct smears concentration & id No Primary Care Physician Start: 10-30-2024 Plain X-ray abdomen No Primary Care Physician Start: 10-30-2024 Iadna-dna/rna gi pth gn multiplex probe tq 6-11 No Primary Care Physician Start: 10-29-2024 Carbon dioxide measu rement, partial pressure No Primary Care Physician Start: 10-29-2024 Gases blood o2 satur ation only direct roosevelt No Primary Care Physician Start: 10-29-2024 Measurement of parti al pressure of oxygen in blood No Primary Care Physician Start: 10-29-2024 Oxygen measurement No P rimary Care Physician Start: 10-29-2024 Assay of triglycerides No Primary Care Physician Start: 10-29-2024 Blood culture No Primar y Care Physician Start: 10-29-2024 Osmolality measureme nt, serum No Primary Care Physician Start: 10-29-2024 Total cholesterol:HD L ratio measurement No Primary Care Physician Start: 10-29-2024 Urine culture No Primar y Care Physician Start: 10-29-2024 Complete ultrasound of kidneys and bladder No Primary Care Physician Start: 10-28-2024 Computed tomography of abdomen and pelvis with intravenous contrast No Primary Care Physician Start: 10-28-2024 Urine culture No Primar y Care Physician Start: 10-04-2024 Abdom paracentesis d x/ther w/imaging guidance Joey Huang DO Work Phone: Start: 10-04-2024 Cell count and Diffe rential panel - Body fluid Joey Huang DO Work Phone: Start: 10-04-2024 Cell count misc body fluids w/differential count Joey Huang DO Work Phone: Start: 10-04-2024 Cell count panel - B carmelina fluid Joey Huang DO Work Phone: Start: 10-04-2024 Prothrombin time Yessenia Oleary PA-C Work Phone: Start: 10-04-2024 Ct abdomen & pelvis w/contrast material Sriram Oleary PA-C Work Phone: Start: 10-04-2024 Basic metabolic pane l calcium total Sriram Sullivanamalia PA-C Work Phone: Start: 09-29-2024 Centesis No Primary Care Physician Start: 09-12-2024 Anion gap measurement N o Primary Care Physician Start: 09-12-2024 BUN/Creatinine ratio No Primary Care Physician Start: 09-12-2024 Estimated creatinine clearance No Primary Care Physician Start: 09-12-2024 Mean corpuscular hem oglobin concentration determination No Primary Care Physician Start: 09-12-2024 Measurement of renal function No Primary Care Physician Start: 09-12-2024 Platelet mean volume determination No Primary Care Physician Start: 09-08-2024 CT of abdomen and pe lvis without contrast No Primary Care Physician Start: 09-07-2024 Blood count smear mc rscp w/mnl difrntl wbc count No Primary Care Physician Start: 09-07-2024 Nucleated red blood cell count procedure No Primary Care Physician Start: 09-06-2024 Blood culture No Primar y Care Physician Start: 09-05-2024 Blood culture No Primar y Care Physician Start: 09-05-2024 Identification proce dure for living organism No Primary Care Physician Start: 09-05-2024 Fluoroscopic guidance N o Primary Care Physician Start: 09-05-2024 Introduction to urin ace tract No Primary Care Physician Start: 09-05-2024 Assay of lactate No [facility] Care Physician Start: 09-05-2024 Folic acid measurement No Primary Care Physician Start: 09-05-2024 Serum ethanol measurement No Primary Care Physician Start: 09-05-2024 Vitamin B12 measurement No Primary Care Physician Start: 09-04-2024 CT of abdomen and pe lvis without contrast No Primary Care Physician Start: 09-04-2024 Prostate specific an tigen measurement No Primary Care Physician Start: 09-04-2024 Benzodiazepine measu rement, urine No Primary Care Physician Start: 09-04-2024 Cocaine measurement, urine No Primary Care Physician Start: 09-04-2024 Measurement of 3,4-methylenedioxymethamphet amine in urine No Primary Care Physician Start: 09-04-2024 Methadone measurement, urine No Primary Care Physician Start: 09-04-2024 Urine amphetamine measurement No Primary Care Physician Start: 09-04-2024 Urine barbiturate measurement No Primary Care Physician Start: 09-04-2024 Urine cannabinoid measurement No Primary Care Physician Start: 09-04-2024 Urine microscopy: red cells No Primary Care Physician Start: 09-04-2024 Urine opiate measurement No Primary Care Physician Start: 09-04-2024 Urnls dip stick/tabl et reagent auto microscopy No Primary Care Physician Start: 09-04-2024 Urine culture No Primar Care Physician Start: 09-02-2024 Anion gap measurement N o Primary Care Physician Start: 09-02-2024 Blood count smear mc rscp w/mnl difrntl wbc count No Primary Care Physician Start: 09-02-2024 BUN/Creatinine ratio No Primary Care Physician Start: 09-02-2024 Estimated creatinine clearance No Primary Care Physician Start: 09-02-2024 Mean corpuscular hem oglobin concentration determination No Primary Care Physician Start: 09-02-2024 Measurement of renal function No Primary Care Physician Start: 09-02-2024 Nucleated red blood cell count procedure No Primary Care Physician Start: 09-02-2024 Platelet mean volume determination No Primary Care Physician Start: 08-30-2024 Complete ultrasound of kidneys and bladder No Primary Care Physician Start: 08-30-2024 Ultrasonography of abdomen No Primary Care Physician Start: 08-30-2024 Ferritin measurement No Primary Care Physician Start: 08-30-2024 Total iron binding c apacity measurement No Primary Care Physician Start: 08-29-2024 Urine microscopy: red cells No Primary Care Physician Start: 08-29-2024 Urnls dip stick/tabl et reagent auto microscopy No Primary Care Physician Start: 08-29-2024 Plain chest X-ray No Pr imary Care Physician Start: 08-29-2024 Triacylglycerol lipa se measurement No Primary Care Physician Start: 08-29-2024 Computed tomography of thoracic spine without contrast No Primary Care Physician Start: 08-29-2024 CT cervical spine wi thout contrast No Primary Care Physician Start: 08-29-2024 CT of head without contrast No Primary Care Physician Start: 08-29-2024 CT of lumbar spine No P rimary Care Physician Start: 08-29-2024 Albumin/Globulin ratio No Primary Care Physician Start: 08-29-2024 Assay of phosphorus inorganic No Primary Care Physician Start: 08-29-2024 Calculation of inter national normalized ratio No Primary Care Physician Start: 08-29-2024 Urine culture No Primar y Care Physician Start: 08-21-2024 X-ray of lumbar spin e, two or three views No Primary Care Physician Plan of Treatment Date Care Activity Detail Author Start: 11-14-2034 Urine microalbumin profile DTaP,Tdap,Td Vaccine (2 - Td or Tdap) [facility] Start: 11-17-2029 Prostate specific antigen measurement Prostate Cancer Screening Discussion [facility] Start: 11-13-2029 Lipid panel Lipid Screening [facility] Start: 11-19-2027 Diabetes Screening Diabetes Screening [facility] Start: 11-17-2027 Diabetes Screening Diabetes Screening [facility] Start: 11-15-2027 Diabetes Screening Diabetes Screening [facility] Start: 11-13-2027 Diabetes Screening Diabetes Screening [facility] Start: 11-18-2025 Creatinine measurement Serum Creatinine [facility] Start: 11-16-2025 Creatinine measurement Serum Creatinine [facility] Start: 11-16-2025 Screening for malignant neoplasm of colon [facility] Start: 11-15-2025 Creatinine measurement Serum Creatinine [facility] Start: 11-12-2025 Creatinine measurement Serum Creatinine [facility] Start: 05-16-2025 Hepatitis A Vaccine (2 of 2 - Risk 2-dose series) Hepatitis A Vaccine (2 of 2 - Risk 2-dose series) [facility] Start: 03-02-2025 End: 03-02-2025 Patient encounter procedure 03/02/2025 2:20 PM EDT Office Visit Family Medicine [facility] [address] [place] [place] [address] Alex Alexandre MD [address] [place] [id number] Hospital discharge, diabetes mx, need for repeat vaccines, and consideration of CT chest [facility] Comment on above: Hospital discharge, diabetes mx, need fo r repeat vaccines, and consideration of CT chest Start: 02-02-2025 End: 02-02-2025 Patient encounter procedure 02/02/2025 9:20 AM EDT Office Visit Internal Medicine [place] [address] Ray Vega MD [address] [place] [address] est care [facility] [place] Comment on above: est care Start: 01-05-2025 Patient discharge [facility] Start: 01-04-2025 [facility] Start: 01-03-2025 End: 01-03-2025 [facility] Start: 01-03-2025 End: 01-03-2025 Care regimes management [facility] Start: 01-03-2025 Notification of physician [facility] Start: 01-03-2025 [facility] Start: 01-02-2025 Application of intermittent pneumatic compression device [facility] Start: 01-02-2025 Ambulation without limitation [facility] Start: 01-02-2025 Assessment of risk of venous thromboembolism [facility] Start: 01-02-2025 Care regimes management [facility] Start: 01-02-2025 Insertion of catheter into peripheral vein [facility] Start: 01-02-2025 Measuring intake and output [facility] Start: 01-02-2025 Notification of physician [facility] Start: 01-02-2025 Providing care according to standard [facility] Start: 01-02-2025 Referral to occupational therapist [facility] Start: 01-02-2025 Referral to service [facility] Start: 01-02-2025 End: 01-02-2025 [facility] Start: 01-02-2025 Admission procedure [facility] Start: 01-02-2025 Verification routine [facility] Start: 01-02-2025 Hospital admission, emergency, from emergency room, medical nature [facility] Start: 01-02-2025 End: 01-02-2025 [facility] Start: 01-02-2025 Consultation [facility] Start: 01-02-2025 Patient referral to dietitian [facility] Start: 12-30-2024 [facility] Start: 12-30-2024 End: 12-30-2024 [facility] Start: 12-29-2024 End: 12-29-2024 Patient encounter procedure Endocrinology Comment on above: Diabetes maangement Diabetes maangement/ LVM OF SOONER APPOINTMENT 11/21 Start: 12-26-2024 [facility] Start: 12-26-2024 End: 12-26-2024 [facility] Start: 12-23-2024 End: 12-23-2024 Patient encounter procedure 12/23/2024 9:45 AM EDT Office Visit Vascular Medicine [address] [place] [address] Pamella Frances, DI[employer] MERCHANT.VIDEO ENGINEER [address] [place] [address] HOSPITAL FOLLOW UP Vascular Medicine Comment on above: HOSPITAL FOLLOW UP Start: 12-12-2024 Hepatitis B Vaccine (2 of 2 - CpG 2-dose series) Hepatitis B Vaccine (2 of 2 - CpG 2-dose series) [facility] Start: 12-07-2024 End: 12-07-2024 Patient encounter procedure 12/07/2024 3:45 PM EDT Office Visit Urology [address] [address] Eva Pichardo MD [address] [place] [address] L ureteral stent, s/p staghorn calculi Urology Comment on above: L ureteral stent, s/p staghorn calculi Start: 12-07-2024 End: 12-07-2024 Patient encounter procedure 12/07/2024 11:20 AM EDT Office Visit [facility] [address] [place] [address] Ksenia Hoyos, DIAMOND MERCHANT.VIDEO ENGINEER [address] [place] [address] Hospital discharge, diabetes mx, need for repeat vaccines, and consideration of CT chest [facility] Comment on above: Hospital discharge, diabetes mx, need fo r repeat vaccines, and consideration of CT chest Start: 12-02-2024 Patient discharge [facility] Start: 12-01-2024 Consultation [facility] Start: 11-29-2024 [facility] Start: 11-28-2024 Enteric precautions [facility] Start: 11-28-2024 Application of intermittent pneumatic compression device [facility] Start: 11-28-2024 Following clinical pathway protocol [facility] Start: 11-28-2024 Assessment of risk of venous thromboembolism [facility] Start: 11-28-2024 Care regimes management [facility] Start: 11-28-2024 Insertion of catheter into peripheral vein [facility] Start: 11-28-2024 Measuring intake and output [facility] Start: 11-28-2024 Notification of physician [facility] Start: 11-28-2024 Providing care according to standard [facility] Start: 11-28-2024 Provision of activity privileges [facility] Start: 11-28-2024 Referral to occupational therapist [facility] Start: 11-28-2024 Referral to service [facility] Start: 11-28-2024 End: 11-28-2024 [facility] Start: 11-28-2024 Admission procedure [facility] Start: 11-28-2024 Inhalation therapy procedure [facility] Start: 11-28-2024 Patient referral to dietitian [facility] Start: 11-25-2024 Patient discharge [facility] Start: 11-24-2024 Administration of blood product [facility] Start: 11-23-2024 Admission procedure [facility] Start: 11-22-2024 [facility] Start: 11-21-2024 Care regimes management [facility] Start: 11-21-2024 Notification of physician [facility] Start: 11-21-2024 Following clinical pathway protocol [facility] Start: 11-21-2024 Ambulation without limitation [facility] Start: 11-21-2024 Assessment of risk of venous thromboembolism [facility] Start: 11-21-2024 Insertion of catheter into peripheral vein [facility] Start: 11-21-2024 Measuring intake and output [facility] Start: 11-21-2024 Providing care according to standard [facility] Start: 11-21-2024 Referral to occupational therapist [facility] Start: 11-21-2024 Referral to service [facility] Start: 11-21-2024 End: 11-21-2024 [facility] Start: 11-21-2024 Verification routine [facility] Start: 11-21-2024 Admission procedure [facility] Start: 11-21-2024 Hospital admission, emergency, from emergency room, medical nature [facility] Start: 11-21-2024 End: 11-21-2024 [facility] Start: 11-21-2024 Consultation [facility] Start: 11-18-2024 End: 11-18-2024 Patient encounter procedure 11/18/2024 3:30 PM EDT Office Visit Cardiology [address] [place] [address] [id number] Liver Tx Evaluation; CONTACT PRECAUTIONS - C-Diff; last of the day Cardiology Comment on above: G; Liver Tx Evaluation; CONTACT PRECAUTIONS - C-Diff; last of the day Start: 11-17-2024 End: 11-17-2024 Patient encounter procedure Pulmonary Medicine Comment on above: C-diff precuations/RA-2L/Reg WC Start: 11-15-2024 End: 11-15-2024 Patient encounter procedure 11/15/2024 1:15 PM EDT Office Visit Dentistry [address] [address] Izabela Harvey, DDS [address] [place] [address] BEDSIDE - TRANSPLANT [facility] - [id number] - Consult Placed 11/12/24 Dentistry Comment on above: BEDSIDE - TRANSPLANT [place] - [id number] [phone] - Consult Placed 11/12/24 Start: 11-10-2024 Patient discharge [facility] Start: 11-09-2024 Consultation [facility] Start: 11-09-2024 Referral to gastroenterology service [facility] Start: 11-09-2024 Glucose measurement, body fluid [facility] Start: 11-08-2024 Urinary bladder residual urine study [facility] Start: 11-08-2024 [facility] Start: 11-05-2024 Removal of urinary catheter [facility] Start: 11-04-2024 [facility] Start: 10-31-2024 [facility] Start: 10-30-2024 Attention to flatus tube [facility] Start: 10-30-2024 Referral to gastroenterology service [facility] Start: 10-29-2024 Insertion of nasogastric tube [facility] Start: 10-29-2024 Bacteria identified in Blood by Culture Blood Culture [facility] Start: 10-29-2024 Referral to service [facility] Start: 10-29-2024 Application of intermittent pneumatic compression device [facility] Start: 10-29-2024 Following clinical pathway protocol [facility] Start: 10-29-2024 Cardiac monitoring [facility] Start: 10-29-2024 Catheterization of vein [facility] Start: 10-29-2024 Enteric precautions [facility] Start: 10-29-2024 Notification of physician [facility] Start: 10-29-2024 Vital signs measurements [facility] Start: 10-29-2024 [facility] Start: 10-29-2024 End: 10-29-2024 Consultation [facility] Start: 10-29-2024 Clostridioides difficile DNA [Presence] in Unspecified specimen by ANANTH with probe detection [facility] Start: 10-29-2024 Complete ultrasound of kidneys and bladder Kidney and Bladder [facility] Start: 10-29-2024 Lactoferrin [Presence] in Stool by Immunoassay [facility] Start: 10-29-2024 Nucleic acid assay [facility] Start: 10-29-2024 Admission procedure [facility] Start: 10-29-2024 End: 10-29-2024 Hospital admission, emergency, from emergency room, medical nature [facility] Start: 10-29-2024 End: 10-29-2024 [facility] Start: 10-29-2024 Patient referral to dietitian [facility] Start: 10-28-2024 [facility] Start: 10-28-2024 Bacteria identified in Urine by Culture Urine Culture [facility] Start: 09-14-2024 Patient discharge [facility] Start: 09-06-2024 Referral to service [facility] Start: 09-06-2024 Referral to occupational therapist [facility] Start: 09-06-2024 Referral to floatlight loading supervisor [facility] Start: 09-06-2024 Consultation [facility] Start: 09-06-2024 Care planning and problem solving actions [facility] Start: 09-06-2024 [facility] Start: 09-05-2024 Application of intermittent pneumatic compression device [facility] Start: 09-05-2024 Continuous positive airway pressure ventilation treatment [facility] Start: 09-05-2024 Cardiac monitoring [facility] Start: 09-05-2024 Care regimes management [facility] Start: 09-05-2024 Catheterization of vein [facility] Start: 09-05-2024 Consultation [facility] Start: 09-05-2024 Notification of physician [facility] Start: 09-05-2024 Vital signs measurements [facility] Start: 09-05-2024 End: 09-05-2024 [facility] Start: 09-05-2024 Following clinical pathway protocol [facility] Start: 09-05-2024 Admission procedure [facility] Start: 09-05-2024 [facility] Start: 09-02-2024 Patient discharge [facility] Start: 08-31-2024 Care planning and problem solving actions [facility] Start: 08-30-2024 [facility] Start: 08-29-2024 Following clinical pathway protocol [facility] Start: 08-29-2024 Assessment of risk of venous thromboembolism [facility] Start: 08-29-2024 Care regimes management [facility] Start: 08-29-2024 Fall prevention [facility] Start: 08-29-2024 Inhalation therapy procedure [facility] Start: 08-29-2024 Insertion of catheter into peripheral vein [facility] Start: 08-29-2024 Measuring intake and output [facility] Start: 08-29-2024 Notification of physician [facility] Start: 08-29-2024 Patient referral to dietitian [facility] Start: 08-29-2024 Providing care according to standard [facility] Start: 08-29-2024 Provision of activity privileges [facility] Start: 08-29-2024 Referral to gastroenterology service [facility] Start: 08-29-2024 Referral to floatlight loading supervisor [facility] Start: 08-29-2024 Referral to occupational therapist [facility] Start: 08-29-2024 Referral to service [facility] Start: 08-29-2024 Vital signs measurements [facility] Start: 08-29-2024 End: 08-29-2024 [facility] Start: 08-29-2024 Admission procedure [facility] Start: 08-21-2024 [facility] Start: 04-04-2024 COVID-19 Vaccine ( season) COVID-19 Vaccine ( season) [facility] Start: 04-04-2024 Influenza vaccination Influenza Vaccine (#1) [facility] Start: 2021 Prostate specific antigen measurement Prostate Cancer Screening Discussion [facility] Start: 2016 Zoster Vaccines (1 of 2) Zoster Vaccines (1 of 2) [facility] Start: 2011 Screening for malignant neoplasm of colon [facility] Start: 2001 Lipid panel Lipid Screening [facility] Start: 1988 DTaP/Tdap/Td Vaccines (1 - Tdap) DTaP/Tdap/Td Vaccines (1 - Tdap) [facility] Start: 1985 Hepatitis A Vaccine (1 of 2 - Risk 2-dose series) Hepatitis A Vaccine (1 of 2 - Risk 2-dose series) [facility] Start: 1985 Hepatitis A Vaccines (1 of 2 - Risk 2-dose series) Hepatitis A Vaccines (1 of 2 - Risk 2-dose series) [facility] Start: 1985 Hepatitis B Vaccine (1 of 3 - 19+ 3-dose series) Hepatitis B Vaccine (1 of 3 - 19+ 3-dose series) [facility] Start: 1985 Hepatitis B Vaccines (1 of 3 - 19+ 3-dose series) Hepatitis B Vaccines (1 of 3 - 19+ 3-dose series) [facility] Start: 1985 Pneumococcal vaccination Pneumococcal Vaccine (1 of 2 - PCV) [facility] Start: 1985 Pneumococcal Vaccine: 50+ (1 of 2 - PCV) Pneumococcal Vaccine: 50+ (1 of 2 - PCV) [facility] Start: 1985 Shingrix Vaccine (1 of 2) Shingrix Vaccine (1 of 2) [facility] Start: 1985 Urine microalbumin profile DTaP,Tdap,Td Vaccine (1 - Tdap) [facility] Start: 1984 Annual PCP Team Chronic Disease Visit Annual PCP Team Chronic Disease Visit [facility] Start: 1984 Anxiety Screening Anxiety Screening [facility] Start: 1984 Depression Screening Depression Screening [facility] Start: 1984 Hepatitis C screening Hepatitis C Screening [facility] Start: 1984 HIV screening HIV Screening [facility] Start: 1976 Glaucoma screening Diabetes: Retinopathy Screening [facility] Start: 1967 MMR Vaccines (1 of 1 - Standard series) MMR Vaccines (1 of 1 - Standard series) [facility] Start: 1966 Hemoglobin A1c measurement Diabetes: Hemoglobin A1C [facility] Start: 1966 HIV screening HIV Screening [facility] Start: 1966 Lipid panel Lipid Panel [facility] Start: 1966 Screening for malignant neoplasm of colon [facility] Start: 1966 Urine screening for protein Diabetes: Urine Protein Screening [facility] Start: 1966 Yearly Adult Physical Yearly Adult Physical [facility] End: 10-04-2024 Albumin [Mass/volume] in Body fluid [facility] Work Phone: Comment on above: Once (Lab) for 1 Occurrences starting until 10/04/2024 Once for 1 Occurrenc es starting 10/04/2024 until 10/04/2024 End: 10-04-2024 Bacteria identified in Body fluid by Culture [facility] Work Phone: Comment on above: Once (Lab) for 1 Occurrences starting until 10/04/2024 End: 10-04-2024 Clostridioides difficile toxin A+B tcdA+tcdB genes [Presence] in Stool by ANANTH with probe detection C. difficile, PCR Microbiology STAT STAT (Lab) for 1 Occurrences starting 10/04/2024 until 10/04/2024 [facility] Work Phone: Comment on above: STAT (Lab) for 1 Occurrences starting until 10/04/2024 End: 10-04-2024 Extra Urine Garvey Tube Extra Urine Garvey Tube Lab Timed Once for 1 Occurrences starting 10/04/2024 until 10/04/2024 [facility] Work Phone: Comment on above: Once for 1 Occurrences starting 10/05/19 until 10/04/2024 End: 10-04-2024 Glucose [Mass/volume] in Body fluid [facility] Work Phone: Comment on above: Once (Lab) for 1 Occurrences starting until 10/04/2024 Once for 1 Occurrenc es starting 10/04/2024 until 10/04/2024 Glucose [Mass/volume ] in Serum or Plasma [facility] End: 10-04-2024 Hemoglobin.gastrointestin al.lower [Presence] in Stool by Immunoassay Fecal Occult Blood Immunoassy Microbiology STAT Once (Lab) for 1 Occurrences starting 10/04/2024 until 10/04/2024 [facility] Work Phone: Comment on above: Once (Lab) for 1 Occurrences starting until 10/04/2024 End: 10-04-2024 Lactate dehydrogenase [Enzymatic activity/volume] in Body fluid by Lactate to pyruvate reaction [facility] Work Phone: Comment on above: Once (Lab) for 1 Occurrences starting until 10/04/2024 Once for 1 Occurrenc es starting 10/04/2024 until 10/04/2024 Lactate dehydrogenas e [Enzymatic activity/volume] in Body fluid by Pyruvate to lactate reaction [facility] Lactic acid measurement [facility] End: 10-04-2024 Non-gynecological cytology method study Cytology (Non-Gynecologic) Pathology and Cytology Routine Once (Lab) for 1 Occurrences starting 10/04/2024 until 10/04/2024 [facility] Service Area Work Phone: Comment on above: Once (Lab) for 1 Occurrences starting until 10/04/2024 Ova OR parasites identification [facility] Patient Education [facility] Work Phone: Patient referral [facility] Work Phone: End: 10-04-2024 pH of Body fluid [facility] Work Phone: Comment on above: Once (Lab) for 1 Occurrences starting until 10/04/2024 End: 10-04-2024 Protein [Mass/volume] in Body fluid [facility] Work Phone: Comment on above: Once (Lab) for 1 Occurrences starting until 10/04/2024 Once for 1 Occurrenc es starting 10/04/2024 until 10/04/2024 Protein [Mass/volume ] in Body fluid [facility] End: 10-04-2024 Stool Pathogen Panel, PCR Stool Pathogen Panel, PCR Microbiology STAT Once (Lab) for 1 Occurrences starting 10/04/2024 until 10/04/2024 [facility] Work Phone: Comment on above: Once (Lab) for 1 Occurrences starting until 10/04/2024 UA DIP, URINE (POC) UA DIP, URIN E (POC) Lab Routine Screening for genitourinary condition 1 Occurrences starting 12/07/2024 [facility] Work Phone: Comment on above: 1 Occurrences starting 12/07/2024 End: 10-04-2024 Urinalysis complete W Reflex Culture panel - Urine [facility] Service Area Work Phone: Comment on above: Once (Lab) for 1 Occurrences starting until 10/04/2024 Once for 1 Occurrenc es starting 10/04/2024 until 10/04/2024 Urine culture [facility] Urine culture [facility] Urine culture [facility] Urine culture [facility] Urine culture [facility] Urine culture [facility] Immunizations Immunization Date Immunization Notes Care Provider Danny méndez 11-16-2024 COVID-19 vaccine, ag e 12+ yr ([employer] [facility] [facility]) Jeremi Abreu RN Work Phone: [facility] 11-15-2024 pneumococcal conjuga te (PCV20) vaccine, 20 valent (PREVNAR 20) Marah Claroswellington SAMPLE SAWYER Work Phone: [facility] 11-14-2024 hepatitis A vaccine, adult dosage Marah Porteranitra [employer] Work Phone: [facility] 11-14-2024 Hepatitis B vaccine (recombinant), CpG adjuvanted Marah Porteranitra S[employer]ER Work Phone: [facility] 11-14-2024 tetanus toxoid, redu danica diphtheria toxoid, and acellular pertussis vaccine, adsorbed Marah Arauz [employer]ER Work Phone: [facility] 09-20-2024 influenza, seasonal, injectable Jeremi Abreu RN Work Phone: [facility] Work Phone: 09-15-2024 tuberculin skin test ; purified protein derivative solution, intradermal Jeremi Abreu RN Work Phone: [facility] Payers Date Payer Category Payer Medicaid [id number] 2024 Medicaid [id number] 2024 Unknown [id number] 2024 Self-pay 1965 Unknown [id number] 2.16.8 40.1.018756.3.579.2.1243 Unknown [id number] 2.16.8 40.1.934842.3.579.2.462 Unknown [id number] 2.16.8 40.1.419294.3.579.2.462 Unknown [id number] 2.16.8 40.1.277213.3.579.2.462 Unknown [id number] 2.16.8 40.1.731357.3.579.2.462 Unknown [id number] 2.16.8 40.1.631238.3.579.2.462 Unknown [id number] 2.16.8 40.1.113160.3.579.2.462 Unknown [id number] 2.16.8 40.1.866019.3.579.2.462 Unknown [id number] 2.16.8 40.1.509222.3.579.2.462 Unknown [id number] 2.16.8 40.1.165095.3.579.2.462 Unknown [id number] 2.16.8 40.1.596110.3.579.2.462 Unknown [id number] 2.16.8 40.1.148080.3.579.2.462 Unknown [id number] 2.16.8 40.1.519767.3.579.2.462 Unknown [id number] 2.16.8 40.1.669182.3.579.2.462 Unknown [id number] 2.16.8 40.1.966000.3.579.2.462 Unknown [id number] 2.16.8 40.1.076198.3.579.2.462 Unknown [id number] 2.16.8 40.1.968548.3.579.2.462 Unknown [id number] 2.16.8 40.1.873023.3.579.2.462 Unknown [id number] 2.16.8 40.1.676571.3.579.2.462 Unknown [id number] 2.16.8 40.1.502196.3.579.2.462 Unknown [id number] 2.16.8 40.1.823982.3.579.2.462 Unknown [id number] 2.16.8 40.1.428563.3.579.2.462 Unknown [id number] 2.16.8 40.1.493737.3.579.2.462 Unknown [id number] 2.16.8 40.1.805411.3.579.2.462 Unknown [id number] 2.16.8 40.1.279318.3.579.2.462 Unknown [id number] 2.16.8 40.1.985494.3.579.2.462 Unknown [id number] 2.16.8 40.1.526839.3.579.2.462 Unknown [id number] 2.16.8 40.1.980923.3.579.2.462 Unknown [id number] 2.16.8 40.1.094042.3.579.2.462 Unknown [id number] 2.16.8 40.1.189444.3.579.2.462 Unknown [id number] 2.16.8 40.1.887498.3.579.2.462 Unknown [id number] 2.16.8 40.1.007379.3.579.2.462 Unknown [id number] 2.16.8 40.1.445102.3.579.2.462 Unknown [id number] 2.16.8 40.1.594257.3.579.2.462 Unknown [id number] 2.16.8 40.1.159234.3.579.2.462 Unknown [id number] 2.16.8 40.1.457160.3.579.2.462 Unknown [id number] 2.16.8 40.1.242320.3.579.2.462 Unknown [id number] 2.16.8 40.1.066324.3.579.2.462 Unknown [id number] 2.16.8 40.1.334125.3.579.2.462 Unknown [id number] 2.16.8 40.1.639637.3.579.2.462 Unknown [id number] 2.16.8 40.1.132223.3.579.2.462 Unknown [id number] 2.16.8 40.1.700790.3.579.2.462 Unknown [id number] 2.16.8 40.1.889566.3.579.2.462 Unknown [id number] 2.16.8 40.1.429770.3.579.2.462 Unknown [id number] 2.16.8 40.1.310394.3.579.2.462 Unknown [id number] 2.16.8 40.1.961455.3.579.2.462 Unknown [id number] 2.16.8 40.1.994276.3.579.2.462 Unknown [id number] 2.16.8 40.1.748397.3.579.2.462 Unknown [id number] 2.16.8 40.1.407093.3.579.2.462 Unknown [id number] 2.16.8 40.1.687655.3.579.2.462 Unknown [id number] 2.16.8 40.1.298210.3.579.2.462 Unknown [id number] 2.16.8 40.1.019832.3.579.2.462 Unknown [id number] 2.16.8 40.1.963744.3.579.2.462 Unknown [id number] 2.16.8 40.1.990789.3.579.2.462 Unknown [id number] 2.16.8 40.1.783930.3.579.2.462 Unknown [id number] 2.16.8 40.1.944573.3.579.2.462 Unknown [id number] 2.16.8 40.1.729610.3.579.2.462 Unknown [id number] 2.16.8 40.1.252174.3.579.2.462 Unknown [id number] 2.16.8 40.1.009370.3.579.2.462 Unknown [id number] 2.16.8 40.1.301574.3.579.2.462 Unknown [id number] 2.16.8 40.1.050255.3.579.2.462 Unknown [id number] 2.16.8 40.1.077609.3.579.2.462 Unknown [id number] 2.16.8 40.1.637937.3.579.2.462 Unknown [id number] 2.16.8 40.1.211367.3.579.2.462 Unknown [id number] 2.16.8 40.1.596321.3.579.2.462 Unknown [id number] 2.16.8 40.1.810693.3.579.2.462 Social History Date Type Detail Facility Start: 10-04-2024 End: 01-02-2025 Tobacco smoking status NHIS Ex-smoker [facility] Work Phone: History of tobacco use [facility] History of tobacco use Cigarette Smoker U [facility] Work Phone: Start: 10-04-2024 End: 11-11-2024 Tobacco use and exposure Smokeless tobacco non-user [facility] Work Phone: Start: 10-04-2024 Alcoholic beverage intake Ex-drinker (finding) [facility] Work Phone: Start: 10-04-2024 End: 11-15-2024 History of Social function [facility] Start: 10-04-2024 End: 11-15-2024 Tobacco use panel [facility] Start: 1965 Sex assigned at Not on file [facility] Work Phone: Start: 09-24-2024 End: 10-04-2024 Exposure to SARS-CoV-2 (event) Not sure [facility] Work Phone: Start: 10-11-2024 End: 11-21-2024 Sex Male (finding) [facility] Start: 1965 Sex Assigned At Male [facility] Start: 11-11-2024 End: 11-18-2024 Alcoholic beverage intake Lifetime non-drinker (finding) [facility] Has the [employer], or water [employer] threatened to shut off services in your home in past 12Mo No [facility] (I/We) worried wheth er (my/our) food would run out before (I/we) got money to buy more. Sometimes true [facility] In the past 12 month s, has lack of transportation kept you from medical appointments or from getting medications? Yes [facility] Medical Equipment Procedure Code Equipment Code Equipment Origin al Text Equipment Identifier Dates Cystoscopic insertion of stent ([id number]) [id number] FDA Start: 09-05-2024 Goals Date Patient Goal Desired Activity /State Functional Status Date Assessment Result Facility 01-05-2025 Functional status With Assist of 1 [facility] Work Phone: 01-05-2025 Functional status Ambulates;Bath room Privilege [facility] Work Phone: 12-02-2024 Functional status Ambulates [facility] Work Phone: 11-25-2024 Functional status Bedrest [facility] Work Phone: 11-18-2024 Are you deaf, or do you have serious difficulty hearing Yes 11/18/2024 10:13 AM Anika Andino RN Yes [facility] 11-18-2024 Are you blind, or do you have serious difficulty seeing, even when wearing glasses No 11/18/2024 10:13 AM Anika Andino RN No [facility] 11-18-2024 Do you have serious difficulty walking or climbing stairs Yes 11/18/2024 10:13 AM Anika Andino, DAYSI Yes [facility] 11-18-2024 Do you have difficul ty dressing or bathing Yes 11/18/2024 10:13 AM Anika Andino, DAYSI Yes [facility] 11-18-2024 Because of a physica l, mental, or emotional condition, do you have difficulty doing errands alone such as visiting a physician's office or shopping Yes 11/18/2024 10:13 AM EDT Anika Carolina RN Yes [facility] 11-11-2024 Functional status Bedpan [facility] Work Phone: 09-15-2024 Functional status Ambulates [facility] Work Phone: 09-02-2024 Functional status Bathroom Privilege [facility] Work Phone: Mental Status Date Assessment Result Facility 01-05-2025 Cognitive function Voice/Name [facility] Work Phone: 01-02-2025 Cognitive function Awake;Alert;Appropriat e [facility] Work Phone: 12-30-2024 Cognitive function Awake;Alert;A ppropriate; Follows Commands [facility] Work Phone: 12-02-2024 Cognitive function Voice/Name [facility] Work Phone: 11-25-2024 Cognitive function Voice/Name [facility] Work Phone: 11-18-2024 Because of a physica l, mental, or emotional condition, do you have serious difficulty concentrating, remembering, or making decisions Yes 11/18/2024 10:13 AM EDT Anika Carolina RN Yes [facility] 11-10-2024 Cognitive function Voice/Name [facility] Work Phone: 09-29-2024 Cognitive function Awake;Alert;A ppropriate; Follows Commands [facility] Work Phone: 09-14-2024 Cognitive function Appropriate;Cooperativ e [facility] Work Phone: 09-14-2024 Cognitive function Voice/Name [facility] Work Phone: 09-02-2024 Cognitive function Voice/Name [facility] Work Phone: Clinical Notes 08-30-2024 to 01-05-2025 Note Date & Type Note Facility 01-05-2025 Consult note Note Date/Time January 05, 2025 5:01p [facility] Medical Records Department [address] [place] [address] Counseling Note - Pharmacy 01/05/25 1447 MR#: [id number] Acct: [id number] Name: FRANKLIN ARCHULETA Rep #:[id number] : 1965 59 From: Kourtney Reece PCP: BRITTANY PenaC Status:ADM I N Y Location: [place] [address] Pharmacy [place] Med Reconciliation Pharmacy Service has performed discharge medication reconciliation for this patient. The patient's discharge medication list was reviewed for discrepancies and discrepancies were resolved. Medications at Discharge Home Medications rifaximin 550 mg tablet (Xifaxan) 550 mg PO BID diarrhea #60 tabs 09/02/24 acetaminophen 500 mg tablet 1,000 mg PO Q8 PRN fever or pain 10/28/24 calcium 500 mg (as carbonate)-vitamin D3 5 mcg (200 unit) tablet (Oyster Shell Calcium-Vitamin D3) 1 tab PO DAILY supplement 10/28/24 folic acid 1 mg tablet 1 mg PO DAILY supplement 10/28/24 atorvastatin 40 mg tablet 40 mg PO DAILY cholesterol 11/21/24 furosemide 20 mg tablet 40 mg PO DAILY diuretic 11/21/24 magnesium oxide 400 mg (241.3 mg magnesium) tablet 400 mg PO DAILY supplement 11/21/24 metformin 500 mg tablet,extended release 24 hr 500 mg PO QPM diabetes 11/21/24 pantoprazole 20 mg tablet,delayed release 20 mg PO DAILY reflux 11/21/24 sodium bicarbonate 650 mg tablet 650 mg PO BID supplement 11/21/24 spironolactone 50 mg tablet 100 mg PO DAILY diuretic 11/21/24 thiamine HCl (vitamin B1) 100 mg tablet 100 mg PO DAILY supplement 11/21/24 zinc sulfate 50 mg zinc (220 mg) tablet 50 mg PO DAILY supplement 11/21/24 ascorbic acid (vitamin C) 500 mg tablet 500 mg PO BID vitamin #60 tabs 11/25/24 midodrine 10 mg tablet 10 mg PO TID blood pressure 1 month #90 tabs 11/25/24 lactulose 10 gram/15 mL oral solution (Constulose) 15 ml PO TID PRN [id number]/27/25 L.acidophil,salivari-Bifido bifidum-Strep thermoph 175 mg capsule 1 cap PO TID pobiotic #120 caps 12/02/24 potassium, sodium phosphates 280 mg-160 mg-250 mg oral powder packet 1 packet POBID electrolytes #100 ea 12/02/24 cyclobenzaprine 10 mg tablet 10 mg PO QHS muscle relaxer 01/02/25 ferrous sulfate 325 mg (65 mg iron) tablet (FeroSul) 325 mg PO QODAY supplement 01/02/25 nadolol 20 mg tablet 20 mg PO DAILY bp 01/02/25 insulin glargine-yfgn 100 unit/mL (3 mL) subcutaneous pen 20 unit (0.2 mL) subcut DAILY #0 mL 01/05/25 insulin glargine-yfgn 100 unit/mL (3 mL) subcutaneous pen 20 unit (0.2 mL) subcut QHS #0 mL 01/05/25 insulin lispro 100 unit/mL subcutaneous pen (Humalog KwikPen (U-100) Insulin) 10unit (0.1 mL) subcut TIDAC #0 mL 01/05/25 insulin lispro 100 unit/mL subcutaneous pen (Humalog KwikPen (U-100) Insulin) See Protocol subcut ACHS #0 mL 01/05/25 01/05/25 1447 <Electronically signed by Kourtney Reece> Date _ Kourtney Clarkigner Signature (if applicable): Date CC: ~ Signed [facility] Work Phone: 1(445) 786-735206-04-2025 Discharge summary Author Hill Acuña [facility] Note Date/Time January 05, 2025 2:07p [facility] Medical Records Department [address] [place] [address] Discharge Summary 01/05/25 1404 MR#: [id number] Acct: [id number] Name: FRANKLIN ARCHULETA Rep #:[id number] : 1965 59 From: Hill Acuña MD PCP: YG Pena Status:ADM I N Location: [place] [address] Providers Date of Admission: 01/02/25 Date of Discharge: 01/05/25 Primary Care Physician: YG Pena Reason For Visit: WEAKNESS POSSIBLE UTI Diagnosis Discharge Diagnosis (1) Fall: Status: Acute Code(s): W19.XXXA - Unspecified fall, initial encounter (2) Acute kidney injury: Status: Acute Code(s): N17.9 - Acute kidney failure, unspecified Plan Patient is a 59-year-old gentleman with recent multiple hospitalization presented to the emergency department with progressive generalized weakness and vomiting. This was apparently his third visit to the ED within a week. 1. Physical deconditioning/debility ? Secondary to multiple medical comorbidities. Transfer to fpc facility had been recommended to patient during previous hospitalization he did decline. I had a discussion with patient he is amenable to entertaining the idea of going to fpc facility. Subsequently requested for PT OT eval and aids social worker to assist with discharge planning ? 01/03/2025; plan is to discuss with case management regarding disposition ? 01/05/2025; awaiting insurance pre-CERT prior to transfer to fpc facility ? Patient was discharged to fpc facility once insurance. 2. Severe hypokalemia ? Patient potassium level on admission was 2.6. Admitted to a monitored bed forclose monitoring. Patient potassium corrected per protocol repeat labs ordered for response to therapy ? 01/04/2025; repeated a.m. labs 3. Acute kidney injury ? Creatinine on admission 3.54 did improve to 1.70 we will continue with IV fluids 4. Recurrent UTI ? Patient recently treated with Levaquin after being seen in the ED 5. Recurrent C. difficile colitis ? Patient is on long p.o. vancomycin taper ? 01/04/2025; Case discussed with pharmacy the day prior patient has completed therapy for his long vancomycin taper 6. Cirrhosis of the liver ? Secondary to nonalcoholic fatty liver disease patient is on Aldactone, rifaximin as well as lactulose, patient is followed by GI as outpatient 7. Extensive portal vein thrombosis ? Patient was transferred to a tertiary care center and discharged on Lovenox. Patient however did not tolerate systemic anticoagulation due to recurrent GI bleed 8. Diabetes mellitus type 2 Patient was on metformin held did continue with Accu-Cheks ACHS with sliding scale coverage ? 01/03/2025; patient blood glucose control not optimal adjusted insulin regimen ? 01/04/2025; subsequent adjustment made to patient insulin regimen ? 01/05/2025; made subsequent adjustment to insulin regimen with patient glucose levels still not being well-controlled 9. Hyponatremia ? Secondary to cirrhosis of the liver we will continue with monitor 10. GERD ? On PPI 11. Obstructive sleep apnea ? Consistent use of CPAP encouraged 12. Chronic hypotension ? Patient is on midodrine 13. Dyslipidemia ?Patient is on statin therapy, continued at home dose 14. Anemia ? Secondary to chronic disorder as well as chronic blood loss anemia, monitoringH&H and transfuse if patient becomes symptomatic or hemoglobin falls below 7 15. DVT prophylaxis ? Bilateral SCDs for Medications at Discharge Home Medications rifaximin 550 mg tablet (Xifaxan) 550 mg PO BID diarrhea #60 tabs 09/02/24 acetaminophen 500 mg tablet 1,000 mg PO Q8 PRN fever or pain 10/28/24 calcium 500 mg (as carbonate)-vitamin D3 5 mcg (200 unit) tablet (Oyster Shell Calcium-Vitamin D3) 1 tab PO DAILY supplement 10/28/24 folic acid 1 mg tablet 1 mg PO DAILY supplement 10/28/24 atorvastatin 40 mg tablet 40 mg PO DAILY cholesterol 11/21/24 furosemide 20 mg tablet 40 mg PO DAILY diuretic 11/21/24 magnesium oxide 400 mg (241.3 mg magnesium) tablet 400 mg PO DAILY supplement 11/21/24 metformin 500 mg tablet,extended release 24 hr 500 mg PO QPM diabetes 11/21/24 pantoprazole 20 mg tablet,delayed release 20 mg PO DAILY reflux 11/21/24 sodium bicarbonate 650 mg tablet 650 mg PO BID supplement 11/21/24 spironolactone 50 mg tablet 100 mg PO DAILY diuretic 11/21/24 thiamine HCl (vitamin B1) 100 mg tablet 100 mg PO DAILY supplement 11/21/24 zinc sulfate 50 mg zinc (220 mg) tablet 50 mg PO DAILY supplement 11/21/24 ascorbic acid (vitamin C) 500 mg tablet 500 mg PO BID vitamin #60 tabs 11/25/24 midodrine 10 mg tablet 10 mg PO TID blood pressure 1 month #90 tabs 11/25/24 lactulose 10 gram/15 mL oral solution (Constulose) 15 ml PO TID PRN hupqjoltsxpd88/27/25 L.acidophil,salivari-Bifido bifidum-Strep thermoph 175 mg capsule 1 cap PO TID pobiotic #120 caps 12/02/24 potassium, sodium phosphates 280 mg-160 mg-250 mg oral powder packet 1 packet POBID electrolytes #100 ea 12/02/24 cyclobenzaprine 10 mg tablet 10 mg PO QHS muscle relaxer 01/02/25 ferrous sulfate 325 mg (65 mg iron) tablet (FeroSul) 325 mg PO QODAY supplement 01/02/25 nadolol 20 mg tablet 20 mg PO DAILY bp 01/02/25 insulin glargine-yfgn 100 unit/mL (3 mL) subcutaneous pen 20 unit (0.2 mL) subcut DAILY #0 mL 01/05/25 insulin glargine-yfgn 100 unit/mL (3 mL) subcutaneous pen 20 unit (0.2 mL) subcut QHS #0 mL 01/05/25 insulin lispro 100 unit/mL subcutaneous pen (Humalog KwikPen (U-100) Insulin) 10unit (0.1 mL) subcut TIDAC #0 mL 01/05/25 insulin lispro 100 unit/mL subcutaneous pen (Humalog KwikPen (U-100) Insulin) See Protocol subcut ACHS #0 mL 01/05/25 Hospital Course Summary of Care Provided Minutes Spent on Discharge: 32 Physical Exam Narrative GENERAL: cooperative HEENT: Atraumatic; normocephalic EYES; Anicteric, Normal Conjunctiva NECK; supple, normal thyroid, RESPIRATORY: Diminished to auscultation CARDIOVASCULAR: Regular S1 S2, GI: soft, normoactive bowel sounds, : No Renal angle tenderness; EXTREMITIES: No edema, no clubbing, MUSCULOSKELETAL: no muscle wasting NEURO: Awake; no lateralizing signs. SKIN: No rash PSYCH; Flat affect Weight / BMI Weight Weight: 92.2 kg Body Mass Index (BMI) 29.9 ABG / Lab / Microbiology Data 01/05/25 05:18 01/05/25 05:18 Laboratory: Laboratory Results - last 24 hr 01/04/25 16:41: POC Glucose 320 H 01/04/25 22:49: POC Glucose 369 H 01/05/25 05:18: WBC 7.0, RBC 2.58 L, Hgb 7.5 L, Hct 22.3 L, MCV 86.4, MCH 29.1, MCHC 33.6, RDW Std Deviation 51.8 H, RDW Coeff of Francis 16.4 H, Plt Count 81 L, MPV 11.3, Immature Gran % (Auto) 0.400, Neut % (Auto) 69.1, Lymph % (Auto) 13.4 L, [place] % (Auto) 11.6 H, Eos % (Auto) 5.1 H, Baso % (Auto) 0.4, Absolute Neuts (auto) 4.8, Absolute Lymphs (auto) 0.94, Nucleated RBC % 0, Sodium 128 L, Potassium 3.6, Chloride 101, Carbon Dioxide 18.5 L, Anion Gap 9, BUN 11, Creatinine 0.95, Estim Creat Clear Calc 95.07, Est GFR (MDRD) Non-Af 92, BUN/Creatinine Ratio 11.9, Glucose 356 H, Calcium 7.9 01/05/25 07:51: POC Glucose 307 H 01/05/25 11:06: POC Glucose 191 H Microbiology: Microbiology 01/02/25 03:54 Urine, Clean Catch Urine Culture - Final Yeast, not Mary albicans D/C Instructions Discharge Diet: 1800 Calorie Control Diet, 8 Cup Fluid Restriction and 2000 mg Sodium Diet Discharge Activity: Return to Normal Activity Call your doctor if you observe: Fever of 101 or Higher, Shortness of breath, Fainting spells and Chest pain DC O2, CPAP, BIPAP Needs Home O2 Discharge instructions: No Meaningful Use Info Meaningful Use Meaningful Use Diagnoses (Choose all that apply): None applicable Ischemic Stroke Statin Dosing Therapy Reference: STATIN DOSE THERAPY REFERENCE: * Patients > 75 years receive moderate or high dose statin therapy. * Patients 75 years or YOUNGER should receive HIGH intensity statin dose unless contraindicated. You will be required to document reason for non-treatment if statin daily dose does not meet guidelines. HIGH DOSE STATIN THERAPY DAILY Atorvastatin > than or = to 40 mg Rosuvastatin > than or = to 20 mg Amlodipine + Atorvastatin > than or = to 2.5/40 mg Ezetimibe + Simvastatin 10/80 mg Simvastatin 80mg Discharge Plan Admission Admit Date/Time: 01/02/25 06:06 Attending Provider: Hill Acuña Primary Care Provider: Josy Elias Consulting Providers: Buster Fuchs Discharge Orders/Prescriptions Prescriptions: New insulin lispro [Humalog KwikPen Insulin] 100 unit/mL Insulin Pen See Protocol subcut ACHS Qty: 0 0RF Protocol: 4. Sliding Scale Insulin High-Med Dosing Condition: 150-199 mg/dl = 2 units Condition: 200-259 mg/dl = 4 units Condition: 260-324 mg/dl = 6 units Condition: 325-374 mg/dl = 8 units Condition: 375-409 mg/dl = 10 units Condition: 410-449 mg/dl = 11 units Condition: Greater than 449 call physician Protocol Text: Suggested for: - Patients on Total Daily Insulin Dose of 56-80 units - Patient who are known to be insulin resistant or septic HIGH MEDIUM DOSING ALGORITHM insulin lispro [Humalog KwikPen Insulin] 100 unit/mL Insulin Pen 10 unit subcut TIDAC Qty: 0 0RF insulin glargine-yfgn 100 unit/mL (3 mL) Insulin Pen 20 unit subcut QHS Qty: 0 0RF insulin glargine-yfgn 100 unit/mL (3 mL) Insulin Pen 20 unit subcut DAILY Qty: 0 0RF Continued Xifaxan 550 mg Tablet 550 mg PO BID Qty: 60 0RF cyclobenzaprine 10 mg tablet 10 mg PO QHS ferrous sulfate [FeroSul] 325 mg (65 mg iron) tablet 325 mg PO QODAY nadolol 20 mg tablet 20 mg PO DAILY folic acid 1 mg tablet 1 mg PO DAILY calcium carbonate-vitamin D3 [Oyster Shell Calcium-Vit D3] 500 mg-5 mcg (200 unit) tablet 1 tab PO DAILY acetaminophen 500 mg Tablet 1,000 mg PO Q8 PRN (Reason: fever or pain) atorvastatin 40 mg tablet 40 mg PO DAILY furosemide 20 mg tablet 40 mg PO DAILY magnesium oxide 400 mg (241.3 mg magnesium) tablet 400 mg PO DAILY sodium bicarbonate 650 mg tablet 650 mg PO BID metformin 500 mg tablet extended release 24 hr 500 mg PO QPM spironolactone 50 mg tablet 100 mg PO DAILY thiamine HCl (vitamin B1) 100 mg tablet 100 mg PO DAILY pantoprazole 20 mg tablet,delayed release (DR/EC) 20 mg PO DAILY zinc sulfate 50 mg zinc (220 mg) tablet 50 mg PO DAILY midodrine 10 mg tablet 10 mg PO TID 30 Days Qty: 90 0RF Rx Instructions: do not give last dose of day after 6PM or within 4 hrs of bedtime ascorbic acid (vitamin C) 500 mg tablet 500 mg PO BID Qty: 60 2RF lactulose [Constulose] 10 gram/15 mL solution 15 ml PO TID PRN (Reason: constipation) Patient Comments: HASNT HAD TO TAKE Rx Instructions: Goal to have 2 soft bowel movements per day L.acidoph,saliva-B.bif-S.therm 175 mg Capsule 1 cap PO TID Qty: 120 0RF potassium, sodium phosphates 280-160-250 mg Powder In Packet 1 packet PO BID Qty: 100 0RF Discontinued insulin lispro [Humalog KwikPen Insulin] 100 unit/mL Insulin Pen See Protocol subcut ACHS Qty: 0 0RF Protocol: 4. Sliding Scale Insulin High-Med Dosing Condition: 150-199 mg/dl = 2 units Condition: 200-259 mg/dl = 4 units Condition: 260-324 mg/dl = 6 units Condition: 325-374 mg/dl = 8 units Condition: 375-409 mg/dl = 10 units Condition: 410-449 mg/dl = 11 units Condition: Greater than 449 call physician Protocol Text: Suggested for: - Patients on Total Daily Insulin Dose of 56-80 units - Patient who are known to be insulin resistant or septic HIGH MEDIUM DOSING ALGORITHM Patient Comments: PT DOESNT TAKE OFTEN vancomycin 125 mg capsule 125 mg PO Q6H 35 Days Qty: 56 0RF Rx Instructions: 4x a day for 7 days, then 2x a day for 7 days, then 1x a day for 7 days, then 1x q48h for 14 days. cephalexin 500 mg capsule 500 mg PO TID 7 Days Qty: 21 0RF Referrals / Follow Up: Josy Elias NP-C [Primary Care Provider] - Disposition Disposition (needs filled in before D/C Order can be placed): Shelter Facility Charges/Coding Visit Charges Inpatient E&M: 19281 Disch Hosp >30min 01/05/25 1407 <Electronically signed by Hill Acuña MD> Cosigner Signature (if applicable): CC: YG Elias; Dr. Hill Acuña MD~ Signed [facility] Work Phone: 1(737) 791-268406-04-2025 Discharge summary Author Hill Acuña [facility] Note Date/Time January 05, 2025 2:04p m [facility] Medical Records Department [address] [place] [address] Transfer to Extended Care MR#: [id number] Acct: [id number] Name: FRANKLIN ARCHULETA Rep #:[id number] : 1965 59 From: Hill Acuña MD PCP: YG Pena Status:ADM I N Certification of patient admission REQUIRED AT TIME OF ADMISSION. I CERTIFY THAT POST-HOSPITAL ECF SERVICES ARE REQUIRED TO BE GIVEN ON AN IN-PATIENT BASIS BECAUSE OF THE ABOVE NAMED PATIENT'S NEED FOR [facility] CARE ON A CONTINUING BASIS FOR THE CONDITION(S) FOR WHICH HE/SHE WAS RECEIVING IN-PATIENT HOSPITAL SERVICES PRIOR TO HIS/HER TRANSFER TO THE F. 01/05/25 1404<Electronically signed by Hill Acuña MD> Diet Diet Order/Speech Therapy: INPATIENT Hospital Diet / Speech Therapy Order(s) 01/02/25 07:39 Diet: Cardiac - Heart Healthy Food consistency:: Regular Liquid Consistency:: Regular/Thin Dietary Modifications:: Consistent Carbohydrate Type of Dietary Supplement:: Glucerna Shake Diet Comments: 240mL Glucerna w/meals Routine Orders/Code Status Code Status: Full Code DC O2, CPAP, BIPAP needs Home O2 Discharge instructions: No Therapies Physical Therapy: Eval and Treat Occupational Therapy: Eval and Treat Problem/Diagnosis (1) Fall: Status: Acute Code(s): W19.XXXA - Unspecified fall, initial encounter (2) Acute kidney injury: Status: Acute Code(s): N17.9 - Acute kidney failure, unspecified Plan Patient is a 59-year-old gentleman with recent multiple hospitalization presented to the emergency department with progressive generalized weakness and vomiting. This was apparently his third visit to the ED within a week. 1. Physical deconditioning/debility ? Secondary to multiple medical comorbidities. Transfer to [facility] facility had been recommended to patient during previous hospitalization he did decline. I had a discussion with patient he is amenable to entertaining the idea of going to [facility] facility. Subsequently requested for PT OT eval and aids social worker to assist with discharge planning ? 01/03/2025; plan is to discuss with case management regarding disposition ? 01/05/2025; awaiting insurance pre-CERT prior to transfer to [facility]pc facility 2. Severe hypokalemia ? Patient potassium level on admission was 2.6. Admitted to a monitored bed forclose monitoring. Patient potassium corrected per protocol repeat labs ordered for response to therapy ? 01/04/2025; repeated a.m. labs 3. Acute kidney injury ? Creatinine on admission 3.54 did improve to 1.70 we will continue with IV fluids 4. Recurrent UTI ? Patient recently treated with Levaquin after being seen in the ED 5. Recurrent C. difficile colitis ? Patient is on long p.o. vancomycin taper ? 01/04/2025; Case discussed with pharmacy the day prior patient has completed therapy for his long vancomycin taper 6. Cirrhosis of the liver ? Secondary to nonalcoholic fatty liver disease patient is on Aldactone, rifaximin as well as lactulose, patient is followed by GI as outpatient 7. Extensive portal vein thrombosis ? Patient was transferred to a tertiary care center and discharged on Lovenox. Patient however did not tolerate systemic anticoagulation due to recurrent GI bleed 8. Diabetes mellitus type 2 Patient was on metformin held did continue with Accu-Cheks ACHS with sliding scale coverage ? 01/03/2025; patient blood glucose control not optimal adjusted insulin regimen ? 01/04/2025; subsequent adjustment made to patient insulin regimen ? 01/05/2025; made subsequent adjustment to insulin regimen with patient glucose levels still not being well-controlled 9. Hyponatremia ? Secondary to cirrhosis of the liver we will continue with monitor 10. GERD ? On PPI 11. Obstructive sleep apnea ? Consistent use of CPAP encouraged 12. Chronic hypotension ? Patient is on midodrine 13. Dyslipidemia ?Patient is on statin therapy, continued at home dose 14. Anemia ? Secondary to chronic disorder as well as chronic blood loss anemia, monitoringH&H and transfuse if patient becomes symptomatic or hemoglobin falls below 7 15. DVT prophylaxis ? Bilateral SCDs for Allergies/Procedures Done in Hospital Allergies No Known Allergies Allergy (Verified 01/02/25 03:00) Type of Care/Length of Stay Estimated LOS: Convalescent Care Less Than 30 days Type of Care Needed: Skilled Rehab Potential: Good Prognosis: Good Additional Orders/Day of Discharge Day of Discharge: 01/05/25 Dietary and Speech Recommendations Dietitian Recommendations/Changes: Will adjust diet to Cardiac/CCD diet to manage medical conditions. Will order 240mL Glucerna TID with meals to provide supplemental energy. Discharge Plan Admission Admit Date/Time: 01/02/25 06:06 Attending Provider: Hill Acuña Primary Care Provider: Josy Elias Consulting Providers: Buster Fuchs Discharge Orders/Prescriptions Prescriptions: New insulin lispro [Humalog KwikPen Insulin] 100 unit/mL Insulin Pen See Protocol subcut ACHS Qty: 0 0RF Protocol: 4. Sliding Scale Insulin High-Med Dosing Condition: 150-199 mg/dl = 2 units Condition: 200-259 mg/dl = 4 units Condition: 260-324 mg/dl = 6 units Condition: 325-374 mg/dl = 8 units Condition: 375-409 mg/dl = 10 units Condition: 410-449 mg/dl = 11 units Condition: Greater than 449 call physician Protocol Text: Suggested for: - Patients on Total Daily Insulin Dose of 56-80 units - Patient who are known to be insulin resistant or septic HIGH MEDIUM DOSING ALGORITHM insulin lispro [Humalog KwikPen Insulin] 100 unit/mL Insulin Pen 10 unit subcut TIDAC Qty: 0 0RF insulin glargine-yfgn 100 unit/mL (3 mL) Insulin Pen 20 unit subcut QHS Qty: 0 0RF insulin glargine-yfgn 100 unit/mL (3 mL) Insulin Pen 20 unit subcut DAILY Qty: 0 0RF Continued Xifaxan 550 mg Tablet 550 mg PO BID Qty: 60 0RF cyclobenzaprine 10 mg tablet 10 mg PO QHS ferrous sulfate [FeroSul] 325 mg (65 mg iron) tablet 325 mg PO QODAY nadolol 20 mg tablet 20 mg PO DAILY folic acid 1 mg tablet 1 mg PO DAILY calcium carbonate-vitamin D3 [Oyster Shell Calcium-Vit D3] 500 mg-5 mcg (200 unit) tablet 1 tab PO DAILY acetaminophen 500 mg Tablet 1,000 mg PO Q8 PRN (Reason: fever or pain) atorvastatin 40 mg tablet 40 mg PO DAILY furosemide 20 mg tablet 40 mg PO DAILY magnesium oxide 400 mg (241.3 mg magnesium) tablet 400 mg PO DAILY sodium bicarbonate 650 mg tablet 650 mg PO BID metformin 500 mg tablet extended release 24 hr 500 mg PO QPM spironolactone 50 mg tablet 100 mg PO DAILY thiamine HCl (vitamin B1) 100 mg tablet 100 mg PO DAILY pantoprazole 20 mg tablet,delayed release (DR/EC) 20 mg PO DAILY zinc sulfate 50 mg zinc (220 mg) tablet 50 mg PO DAILY midodrine 10 mg tablet 10 mg PO TID 30 Days Qty: 90 0RF Rx Instructions: do not give last dose of day after 6PM or within 4 hrs of bedtime ascorbic acid (vitamin C) 500 mg tablet 500 mg PO BID Qty: 60 2RF lactulose [Constulose] 10 gram/15 mL solution 15 ml PO TID PRN (Reason: constipation) Patient Comments: HASNT HAD TO TAKE Rx Instructions: Goal to have 2 soft bowel movements per day L.acidoph,saliva-B.bif-S.therm 175 mg Capsule 1 cap PO TID Qty: 120 0RF potassium, sodium phosphates 280-160-250 mg Powder In Packet 1 packet PO BID Qty: 100 0RF Discontinued insulin lispro [Humalog KwikPen Insulin] 100 unit/mL Insulin Pen See Protocol subcut ACHS Qty: 0 0RF Protocol: 4. Sliding Scale Insulin High-Med Dosing Condition: 150-199 mg/dl = 2 units Condition: 200-259 mg/dl = 4 units Condition: 260-324 mg/dl = 6 units Condition: 325-374 mg/dl = 8 units Condition: 375-409 mg/dl = 10 units Condition: 410-449 mg/dl = 11 units Condition: Greater than 449 call physician Protocol Text: Suggested for: - Patients on Total Daily Insulin Dose of 56-80 units - Patient who are known to be insulin resistant or septic HIGH MEDIUM DOSING ALGORITHM Patient Comments: PT DOESNT TAKE OFTEN vancomycin 125 mg capsule 125 mg PO Q6H 35 Days Qty: 56 0RF Rx Instructions: 4x a day for 7 days, then 2x a day for 7 days, then 1x a day for 7 days, then 1x q48h for 14 days. cephalexin 500 mg capsule 500 mg PO TID 7 Days Qty: 21 0RF Referrals / Follow Up: Josy Elias NP-C [Primary Care Provider] - Disposition Disposition (needs filled in before D/C Order can be placed): Shelter Facility 01/05/25 1404 <Electronically signed by Hill Acuña MD> Cosigner Signature (if applicable): CC: MOE-C Josy Elias; Dr. Buster Fuchs MD ~ [facility] Work Phone: 1(134) 308-804106-04-2025 [facility]06-04-2025 Progress note Author Hill Acuña [facility] Note Date/Time January 05, 2025 11:01 am [facility] Medical Records Department [address] [place] [address] Progress Note - Hospitalist 01/05/25 0737 MR#: [id number] Acct: [id number] Name: FRANKLIN ARCHULETA Rep #:[id number] : 1965 59 From: Hill Acuña MD PCP: YG Pena Status:ADM I N Location: [place] [address] Reason for Visit Reason for Visit: Diagnoses Acute kidney failure, unspecified (01/02/25) Unspecified fall, initial encounter (01/02/25) Subjective Subjective Patient seen blood glucose control not optimal further adjustment made to patient insulin regimen. Patient awaiting insurance precertification prior to transfer to [facility] Objective Data Objective Data Vital Signs: Vital Signs Temp Pulse Resp BP Pulse Ox O2 Del Method 97.3 F L 75 16 94/60 99 Room Air 01/05/25 03:45 01/05/25 05:56 01/05/25 03:45 01/05/25 05:56 01/05/25 03:45 01/05/25 03:45 Oxygen Delivery Method Room Air Weight: 92.2 kg Body Mass Index (BMI) 29.9 Intake & Output: Intake and Output for Last 24 Hours 01/03/25 01/04/25 01/05/25 23:59 23:59 23:59 Intake Total 2360 / 2360 2487.5 / 2487.5 1000 / 1000 Output Total 2425 / 2425 1200 / 2700 2150 / 2150 Balance -65 / -65 1287.5 / -212.5 -1150 / -1150 Lab / Micro Data 01/05/25 05:18 01/05/25 05:18 Labs: Laboratory Results - last 24 hr 01/02/25 03:54: Urine Color Red, Urine Clarity Turbid, Urine pH 6.0, Ur SpecificGravity 1.015, Urine Protein 100 H, Urine Glucose (UA) Normal, Urine Ketones 5 H, Urine Occult Blood 250 H, Urine Nitrite Negative, Urine Bilirubin Negative, Urine Urobilinogen Normal, Ur Leukocyte Esterase 500 H, Urine RBC > 100 SEEN, Urine WBC 25-50 SEEN, Ur Squamous Epith Cells 0 SEEN, Urine Bacteria 3+, Urine Mucus 0 SEEN 01/04/25 10:55: WBC 6.4, RBC 2.71 L, Hgb 7.9 L, Hct 24.6 L, MCV 90.8, MCH 29.2, MCHC 32.1, RDW Std Deviation 56.2 H, RDW Coeff of Francis 17.0 H, Plt Count 87 L, MPV 12.1 H, Differential Comment SCANNED, Sodium 131 L, Potassium 3.6, Chloride 103, Carbon Dioxide 19.0 L, Anion Gap 9, BUN 15, Creatinine 1.03, Estim Creat Clear Calc 87.82, Est GFR (MDRD) Non-Af 84, BUN/Creatinine Ratio 14.6, Glucose 256 H, Calcium 7.9, Phosphorus 2.3 L, Magnesium 1.3 L, Total Bilirubin 0.90, AST54 H, ALT 26, Alkaline Phosphatase 171 H, Total Protein 5.3 L, Albumin 2.4 L, Globulin 2.9, Albumin/Globulin Ratio 0.9 01/04/25 11:42: POC Glucose 256 H 01/04/25 16:41: POC Glucose 320 H 01/04/25 22:49: POC Glucose 369 H 01/05/25 05:18: WBC 7.0, RBC 2.58 L, Hgb 7.5 L, Hct 22.3 L, MCV 86.4, MCH 29.1, MCHC 33.6, RDW Std Deviation 51.8 H, RDW Coeff of Francis 16.4 H, Plt Count 81 L, MPV 11.3, Immature Gran % (Auto) 0.400, Neut % (Auto) 69.1, Lymph % (Auto) 13.4 L, [place] % (Auto) 11.6 H, Eos % (Auto) 5.1 H, Baso % (Auto) 0.4, Absolute Neuts (auto) 4.8, Absolute Lymphs (auto) 0.94, Nucleated RBC % 0, Sodium 128 L, Potassium 3.6, Chloride 101, Carbon Dioxide 18.5 L, Anion Gap 9, BUN 11, Creatinine 0.95, Estim Creat Clear Calc 95.07, Est GFR (MDRD) Non-Af 92, BUN/Creatinine Ratio 11.9, Glucose 356 H, Calcium 7.9 Micro: Microbiology 01/02/25 03:54 Urine, Clean Catch Urine Culture - Final Yeast, not Mary albicans Physical Exam Narrative GENERAL: cooperative HEENT: Atraumatic; normocephalic EYES; Anicteric, Normal Conjunctiva NECK; supple, normal thyroid, RESPIRATORY: Diminished to auscultation CARDIOVASCULAR: Regular S1 S2, GI: soft, normoactive bowel sounds, : No Renal angle tenderness; EXTREMITIES: No edema, no clubbing, MUSCULOSKELETAL: no muscle wasting NEURO: Awake; no lateralizing signs. SKIN: No rash PSYCH; Flat affect Assessment & Plan Assessment/Plan (1) Fall: (2) Acute kidney injury: PLAN: Plan Patient is a 59-year-old gentleman with recent multiple hospitalization presented to the emergency department with progressive generalized weakness and vomiting. This was apparently his third visit to the ED within a week. 1. Physical deconditioning/debility ? Secondary to multiple medical comorbidities. Transfer to [facility] facility had been recommended to patient during previous hospitalization he did decline. I had a discussion with patient he is amenable to entertaining the idea of going to [facility] facility. Subsequently requested for PT OT eval and aids social worker to assist with discharge planning ? 01/03/2025; plan is to discuss with case management regarding disposition ? 01/05/2025; awaiting insurance pre-CERT prior to transfer to [facility] facility 2. Severe hypokalemia ? Patient potassium level on admission was 2.6. Admitted to a monitored bed forclose monitoring. Patient potassium corrected per protocol repeat labs ordered for response to therapy ? 01/04/2025; repeated a.m. labs 3. Acute kidney injury ? Creatinine on admission 3.54 did improve to 1.70 we will continue with IV fluids 4. Recurrent UTI ? Patient recently treated with Levaquin after being seen in the ED 5. Recurrent C. difficile colitis ? Patient is on long p.o. vancomycin taper ? 01/04/2025; Case discussed with pharmacy the day prior patient has completed therapy for his long vancomycin taper 6. Cirrhosis of the liver ? Secondary to nonalcoholic fatty liver disease patient is on Aldactone, rifaximin as well as lactulose, patient is followed by GI as outpatient 7. Extensive portal vein thrombosis ? Patient was transferred to a tertiary care center and discharged on Lovenox. Patient however did not tolerate systemic anticoagulation due to recurrent GI bleed 8. Diabetes mellitus type 2 Patient was on metformin held did continue with Accu-Cheks ACHS with sliding scale coverage ? 01/03/2025; patient blood glucose control not optimal adjusted insulin regimen ? 01/04/2025; subsequent adjustment made to patient insulin regimen ? 01/05/2025; made subsequent adjustment to insulin regimen with patient glucose levels still not being well-controlled 9. Hyponatremia ? Secondary to cirrhosis of the liver we will continue with monitor 10. GERD ? On PPI 11. Obstructive sleep apnea ? Consistent use of CPAP encouraged 12. Chronic hypotension ? Patient is on midodrine 13. Dyslipidemia ?Patient is on statin therapy, continued at home dose 14. Anemia ? Secondary to chronic disorder as well as chronic blood loss anemia, monitoringH&H and transfuse if patient becomes symptomatic or hemoglobin falls below 7 15. DVT prophylaxis ? Bilateral SCDs for Charges/Coding Visit Charges Inpatient E&M: 72350 Subs Hosp L2 01/05/25 1101 <Electronically signed by Hill Acuña MD> Cosigner Signature (if applicable): CC: ~ Signed [facility] Work Phone: 1(831) 495-422406-03-2025 Progress note Author Hill Acuña [facility] Note Date/Time January 04, 2025 10:18 am [facility] Medical Records Department [address] [place] [address] Progress Note - Hospitalist 01/04/25 1014 MR#: [id number] Acct: [id number] Name: FRANKLIN ARCHULETA Rep #:[id number] : 1965 59 From: Hill Acuña MD PCP: YG Pena Status:ADM I N Location: [place] [address] Reason for Visit Reason for Visit: Diagnoses Acute kidney failure, unspecified (01/02/25) Unspecified fall, initial encounter (01/02/25) Subjective Subjective Patient blood glucose levels markedly elevated. Adjusted patient insulin regimen the day prior. Objective Data Objective Data Vital Signs: Vital Signs Temp Pulse Resp BP Pulse Ox O2 Del Method 97.9 F 73 16 95/65 96 Room Air 01/04/25 05:32 01/04/25 05:32 01/04/25 05:32 01/04/25 05:32 01/04/25 05:32 01/04/25 08:11 Oxygen Delivery Method Room Air Weight: 92.5 kg Body Mass Index (BMI) 30.1 Intake & Output: Intake and Output for Last 24 Hours 01/02/25 01/03/25 01/04/25 23:59 23:59 23:59 Intake Total 3137.5 / 3617.5 2360 / 2360 1400 / 1400 Output Total 725 / 1400 2425 / 2425 300 / 300 Balance 2412.5 / 2217.5 -65 / -65 1100 / 1100 Lab / Micro Data 01/03/25 05:29 01/03/25 05:29 Labs: Laboratory Results - last 24 hr 01/02/25 03:54: Urine Color Red, Urine Clarity Turbid, Urine pH 6.0, Ur SpecificGravity 1.015, Urine Protein 100 H, Urine Glucose (UA) Normal, Urine Ketones 5 H, Urine Occult Blood 250 H, Urine Nitrite Negative, Urine Bilirubin Negative, Urine Urobilinogen Normal, Ur Leukocyte Esterase 500 H, Urine RBC > 100 SEEN, Urine WBC 25-50 SEEN, Ur Squamous Epith Cells 0 SEEN, Urine Bacteria 3+, Urine Mucus 0 SEEN 01/03/25 11:33: POC Glucose 338 H 01/03/25 16:51: POC Glucose 483 H* 01/03/25 22:06: POC Glucose 356 H 01/04/25 06:41: POC Glucose 331 H Micro: Microbiology 01/02/25 03:54 Urine, Clean Catch Urine Culture - Preliminary Yeast Like Organism Physical Exam Narrative GENERAL: cooperative HEENT: Atraumatic; normocephalic EYES; Anicteric, Normal Conjunctiva NECK; supple, normal thyroid, RESPIRATORY: Diminished to auscultation CARDIOVASCULAR: Regular S1 S2, GI: soft, normoactive bowel sounds, : No Renal angle tenderness; EXTREMITIES: No edema, no clubbing, MUSCULOSKELETAL: no muscle wasting NEURO: Awake; no lateralizing signs. SKIN: No rash PSYCH; Flat affect Assessment & Plan Assessment/Plan (1) Fall: (2) Acute kidney injury: PLAN: Plan Patient is a 59-year-old gentleman with recent multiple hospitalization presented to the emergency department with progressive generalized weakness and vomiting. This was apparently his third visit to the ED within a week. 1. Physical deconditioning/debility ? Secondary to multiple medical comorbidities. Transfer to [facility] facility had been recommended to patient during previous hospitalization he did decline. I had a discussion with patient he is amenable to entertaining the idea of going to [facility] facility. Subsequently requested for PT OT eval and aids social worker to assist with discharge planning ? 01/03/2025; plan is to discuss with case management regarding disposition 2. Severe hypokalemia ? Patient potassium level on admission was 2.6. Admitted to a monitored bed forclose monitoring. Patient potassium corrected per protocol repeat labs ordered for response to therapy ? 01/04/2025; repeated a.m. labs 3. Acute kidney injury ? Creatinine on admission 3.54 did improve to 1.70 we will continue with IV fluids 4. Recurrent UTI ? Patient recently treated with Levaquin after being seen in the ED 5. Recurrent C. difficile colitis ? Patient is on long p.o. vancomycin taper ? 01/04/2025; Case discussed with pharmacy the day prior patient has completed therapy for his long vancomycin taper 6. Cirrhosis of the liver ? Secondary to nonalcoholic fatty liver disease patient is on Aldactone, rifaximin as well as lactulose, patient is followed by GI as outpatient 7. Extensive portal vein thrombosis ? Patient was transferred to a tertiary care center and discharged on Lovenox. Patient however did not tolerate systemic anticoagulation due to recurrent GI bleed 8. Diabetes mellitus type 2 Patient was on metformin held did continue with Accu-Cheks ACHS with sliding scale coverage ? 01/03/2025; patient blood glucose control not optimal adjusted insulin regimen ? 01/04/2025; subsequent adjustment made to patient insulin regimen 9. Hyponatremia ? Secondary to cirrhosis of the liver we will continue with monitor 10. GERD ? On PPI 11. Obstructive sleep apnea ? Consistent use of CPAP encouraged 12. Chronic hypotension ? Patient is on midodrine 13. Dyslipidemia ?Patient is on statin therapy, continued at home dose 14. Anemia ? Secondary to chronic disorder as well as chronic blood loss anemia, monitoringH&H and transfuse if patient becomes symptomatic or hemoglobin falls below 7 15. DVT prophylaxis ? Bilateral SCDs for Charges/Coding Visit Charges Inpatient E&M: 23854 Subs Hosp L2 01/04/25 1018 <Electronically signed by Hill Acuña MD> Cosigner Signature (if applicable): CC: ~ Signed [facility] Work Phone: 1(961) 299-925806-02-2025 Progress note Author Hill Acuña [facility] Note Date/Time January 03, 2025 9:52a m [facility] Medical Records Department [address] [place] [address] Progress Note - Hospitalist 01/03/25 0839 MR#: [id number] Acct: [id number] Name: FRANKLIN ARCHULETA Rep #:[id number] : 1965 59 From: Hill Acuña MD PCP: YG Pena Status:ADM I N Location: [place] [address] Reason for Visit Reason for Visit: Diagnoses Acute kidney failure, unspecified (01/02/25) Unspecified fall, initial encounter (01/02/25) Subjective Subjective Patient seen remains deconditioned. Sodium levels down to 130, creatinine did improve to 1.70 Objective Data Objective Data Vital Signs: Vital Signs Temp Pulse Resp BP Pulse Ox O2 Del Method 97.6 F L 69 16 107/62 100 Room Air 01/03/25 03:30 01/03/25 03:30 01/03/25 03:30 01/03/25 03:30 01/03/25 03:30 01/03/25 08:18 Oxygen Delivery Method Room Air Weight: 89.2 kg Body Mass Index (BMI) 29.0 Intake & Output: Intake and Output for Last 24 Hours 01/01/25 01/02/25 01/03/25 23:59 23:59 23:59 Intake Total 3137.5 / 3617.5 960 / 960 Output Total 725 / 1400 1275 / 1275 Balance 2412.5 / 2217.5 -315 / -315 Lab / Micro Data 01/03/25 05:29 01/03/25 05:29 Labs: Laboratory Results - last 24 hr 01/02/25 08:27: POC Glucose 188 H 01/02/25 11:05: POC Glucose 245 H 01/02/25 16:39: POC Glucose 363 H 01/02/25 21:36: POC Glucose 354 H 01/03/25 05:29: WBC 8.1, RBC 2.76 L, Hgb 8.0 L, Hct 24.2 L, MCV 87.7, MCH 29.0, MCHC 33.1, RDW Std Deviation 53.0 H, RDW Coeff of Francis 16.6 H, Plt Count 115 L, MPV 12.0, Immature Gran % (Auto) 0.500, Neut % (Auto) 67.5, Lymph % (Auto) 13.9 L, [place] % (Auto) 11.5 H, Eos % (Auto) 6.4 H, Baso % (Auto) 0.2, Absolute Neuts (auto) 5.5, Absolute Lymphs (auto) 1.13, Nucleated RBC % 0, Sodium 130 L, Potassium 3.6, Chloride 101, Carbon Dioxide 18.2 L, Anion Gap 11, BUN 29 H, Creatinine 1.70 H, Estim Creat Clear Calc 52.32, Est GFR (MDRD) Non-Af 46 L, BUN/Creatinine Ratio 17.3, Glucose 351 H, Calcium 8.1 01/03/25 06:15: POC Glucose 322 H Physical Exam Narrative GENERAL: cooperative HEENT: Atraumatic; normocephalic EYES; Anicteric, Normal Conjunctiva NECK; supple, normal thyroid, RESPIRATORY: Diminished to auscultation CARDIOVASCULAR: Regular S1 S2, GI: soft, normoactive bowel sounds, : No Renal angle tenderness; EXTREMITIES: No edema, no clubbing, MUSCULOSKELETAL: no muscle wasting NEURO: Awake; no lateralizing signs. SKIN: No rash PSYCH; Flat affect Assessment & Plan Assessment/Plan (1) Fall: (2) Acute kidney injury: PLAN: Plan Patient is a 59-year-old gentleman with recent multiple hospitalization presented to the emergency department with progressive generalized weakness and vomiting. This was apparently his third visit to the ED within a week. 1. Physical deconditioning/debility ? Secondary to multiple medical comorbidities. Transfer to [facility] facility had been recommended to patient during previous hospitalization he did decline. I had a discussion with patient he is amenable to entertaining the idea of going to [facility] facility. Subsequently requested for PT OT eval and aids social worker to assist with discharge planning ? 01/03/2025; plan is to discuss with case management regarding disposition 2. Severe hypokalemia ? Patient potassium level on admission was 2.6. Admitted to a monitored bed forclose monitoring. Patient potassium corrected per protocol repeat labs ordered for response to therapy 3. Acute kidney injury ? Creatinine on admission 3.54 did improve to 1.70 we will continue with IV fluids 4. Recurrent UTI ? Patient recently treated with Levaquin after being seen in the ED 5. Recurrent C. difficile colitis ? Patient is on long p.o. vancomycin taper 6. Cirrhosis of the liver ? Secondary to nonalcoholic fatty liver disease patient is on Aldactone, rifaximin as well as lactulose, patient is followed by GI as outpatient 7. Extensive portal vein thrombosis ? Patient was transferred to a tertiary care center and discharged on Lovenox. Patient however did not tolerate systemic anticoagulation due to recurrent GI bleed 8. Diabetes mellitus type 2 Patient was on metformin held did continue with Accu-Cheks ACHS with sliding scale coverage ? 01/03/2025; patient blood glucose control not optimal adjusted insulin regimen 9. Hyponatremia ? Secondary to cirrhosis of the liver we will continue with monitor 10. GERD ? On PPI 11. Obstructive sleep apnea ? Consistent use of CPAP encouraged 12. Chronic hypotension ? Patient is on midodrine 13. Dyslipidemia ?Patient is on statin therapy, continued at home dose 14. Anemia ? Secondary to chronic disorder as well as chronic blood loss anemia, monitoringH&H and transfuse if patient becomes symptomatic or hemoglobin falls below 7 15. DVT prophylaxis ? Bilateral SCDs for Charges/Coding Visit Charges Inpatient E&M: 26900 Subs Hosp L2 01/03/25 0952 <Electronically signed by Hill Acuña MD> Cosigner Signature (if applicable): CC: ~ Signed [facility] Work Phone: 1(792) 518-667206-01-2025 Progress note Author Hill Acuña [facility] Note Date/Time January 02, 2025 9:58a m [facility] Medical Records Department [address] [place] [address] Progress Note - Hospitalist 01/02/25 0736 MR#: [id number] Acct: [id number] Name: FRANKLIN ARCHULETA Rep #:[id number] : 1965 59 From: Hill Acuña MD PCP: Josy Elias, [facility] Status:ADM I N Location: [place] [address] Reason for Visit Reason for Visit: Diagnoses Acute kidney failure, unspecified (01/02/25) Unspecified fall, initial encounter (01/02/25) Subjective Subjective Patient is a 59-year-old gentleman with recent multiple hospitalization presented to the emergency department with progressive generalized weakness and vomiting. This was apparently his third visit to the ED within a week. Patienthad been encouraged to be discharged to a fpc facility he however declined. Objective Data Objective Data Vital Signs: Vital Signs Temp Pulse Resp BP Pulse Ox O2 Del Method 97.8 F 68 20 H 105/73 100 Room Air 01/02/25 06:34 01/02/25 06:34 01/02/25 06:34 01/02/25 06:34 01/02/25 06:34 01/02/25 06:00 Oxygen Delivery Method Room Air Weight: 84.5 kg Body Mass Index (BMI) 27.5 Intake & Output: Intake and Output for Last 24 Hours 12/31/24 01/01/25 01/02/25 23:59 23:59 23:59 Intake Total 1200 / 1200 Balance 1200 / 1200 Lab / Micro Data 01/02/25 03:30 01/02/25 03:30 Labs: Laboratory Results - last 24 hr 01/02/25 03:30: WBC 12.7 H, RBC 3.21 L, Hgb 9.5 L, Hct 28.0 L, MCV 87.2, MCH 29.6, MCHC 33.9, RDW Std Deviation 51.1 H, RDW Coeff of Francis 16.4 H, Plt Count 171, MPV 12.1 H, Immature Gran % (Auto) 0.600, Neut % (Auto) 68.0, Lymph % (Auto) 12.2 L, [place] % (Auto) 11.9 H, Eos % (Auto) 6.9 H, Baso % (Auto) 0.4, Absolute Neuts (auto) 8.6 H, Absolute Lymphs (auto) 1.55, Nucleated RBC % 0, Sodium 132 L, Potassium 2.6 L*, Chloride 95 L, Carbon Dioxide 19.6 L, Anion Gap 17 H, BUN 46 H, Creatinine 3.54 H, Estim Creat Clear Calc 22.75 L, Est GFR (MDRD) Non-Af 19 L, BUN/Creatinine Ratio 12.9, Glucose 164 H, Calcium 9.0, Magnesium 2.0, Total Bilirubin 0.90, AST 37, ALT 23, Alkaline Phosphatase 191 H,Total Protein 6.1, Albumin 2.8 L, Globulin 3.4, Albumin/Globulin Ratio 0.8 L, Lipase 45 01/02/25 03:54: Urine Color Red, Urine Clarity Turbid, Urine pH 6.0, Ur SpecificGravity 1.015, Urine Protein 100 H, Urine Glucose (UA) Normal, Urine Ketones 5 H, Urine Occult Blood 250 H, Urine Nitrite Negative, Urine Bilirubin Negative, Urine Urobilinogen Normal, Ur Leukocyte Esterase 500 H, Urine RBC > 100 SEEN, Urine WBC 25-50 SEEN, Ur Squamous Epith Cells 0 SEEN, Urine Bacteria 3+, Urine Mucus 0 SEEN 01/02/25 04:18: Ethyl Alcohol < 10.1 01/02/25 05:50: Ammonia 40.4 Radiography Diagnostic Testing: Radiology Impression Abdomen/Pelvis CT 01/02/25 03:45 IMPRESSION: No evidence of acute intra-abdominal traumatic injury on noncontrast imaging. Similar appearance of cirrhosis, splenomegaly and varices and cholelithiasis as above. Left double-J ureteral stent again appears in place with similar appearance of the large left renal staghorn and some associated left pelvicaliectasis, unchanged. Multilevel vertebral compression deformities are not significantly changed in appearance. A linear area of sclerosis left sacrum suggesting insufficiency fracture again noted, unchanged. Reading Location: [facility] Brain CT 01/02/25 03:55 IMPRESSION: No intracranial hemorrhage, mass effect or calvarial fracture. Moderate volume loss, atrophy again noted. Mild left maxillary sinus disease appears mildly decreased from the prior study. Reading Location: [facility] Cervical Spine CT 01/02/25 03:55 IMPRESSION: No fracture or malalignment. Multilevel spondylosis/discogenic change greatest at C5-6 Reading Location: [facility] Physical Exam Narrative GENERAL: cooperative HEENT: Atraumatic; normocephalic EYES; Anicteric, Normal Conjunctiva NECK; supple, normal thyroid, RESPIRATORY: Diminished to auscultation CARDIOVASCULAR: Regular S1 S2, GI: soft, normoactive bowel sounds, : No Renal angle tenderness; EXTREMITIES: No edema, no clubbing, MUSCULOSKELETAL: no muscle wasting NEURO: Awake; no lateralizing signs. SKIN: No rash PSYCH; Flat affect Assessment & Plan Assessment/Plan (1) Fall: (2) Acute kidney injury: PLAN: Plan Patient is a 59-year-old gentleman with recent multiple hospitalization presented to the emergency department with progressive generalized weakness and vomiting. This was apparently his third visit to the ED within a week. 1. Physical deconditioning/debility ? Secondary to multiple medical comorbidities. Transfer to fpc facility had been recommended to patient during previous hospitalization he did decline. I had a discussion with patient he is amenable to entertaining the idea of going to fpc facility. Subsequently requested for PT OT eval and aids social worker to assist with discharge planning 2. Severe hypokalemia ? Patient potassium level on admission was 2.6. Admitted to a monitored bed forclose monitoring. Patient potassium corrected per protocol repeat labs ordered for response to therapy 3. Recurrent UTI ? Patient recently treated with Levaquin after being seen in the ED 4. Recurrent C. difficile colitis ? Patient is on long p.o. vancomycin taper 5. Cirrhosis of the liver ? Secondary to nonalcoholic fatty liver disease patient is on Aldactone, rifaximin as well as lactulose, patient is followed by GI as outpatient 6. Extensive portal vein thrombosis ? Patient was transferred to a tertiary care center and discharged on Lovenox. Patient however did not tolerate systemic anticoagulation due to recurrent GI bleed 7. Diabetes mellitus type 2 Patient was on metformin held did continue with Accu-Cheks ACHS with sliding scale coverage 8. GERD ? On PPI 9. Obstructive sleep apnea ? Consistent use of CPAP encouraged 10. Chronic hypotension ? Patient is on midodrine 11. Dyslipidemia ?Patient is on statin therapy, continued at home dose 12. Hyponatremia ? Secondary to cirrhosis of the liver monitoring 13. Anemia ? Secondary to chronic disorder as well as chronic blood loss anemia, monitoringH&H and transfuse if patient becomes symptomatic or hemoglobin falls below 7 14. DVT prophylaxis ? Bilateral SCDs for Time spent in the patient's overall evaluation,decision-making process, review of diagnostic data, adjustment of management, discussion with other providers, nursing nursing and ancillary staff involved in patient's care documentation, 38Minutes Charges/Coding Visit Charges Inpatient E&M: 16162 PROLNG IP/OBS E/M EA 15 MIN Multi Select Codes Visit Charges Visit Charges: 01274 PROLNG IP/OBS E/M EA 15 MIN 01/02/25 0958 <Electronically signed by Hill Acuña MD> Cosigner Signature (if applicable): CC: ~ Signed [facility] Work Phone: [phone]) 950-636106-01-2025 History and physical note Author Buster Fuchs [facility] Note Date/Time January 02, 2025 6:44a m [facility] Medical Records Department [address] [place] [address] H&P Exam - Hospitalist 01/02/25 0556 MR#: [id number] Acct: [id number] Name: FRANKLIN ARCHULETA Rep #:[id number] : 1965 59 From: Buster duarte MD PCP: YG Pena Status:ADM I N Location: [place] [address] HPI - General General Date of Admission: 01/02/25 HPI Narrative FRANKLIN ARCHULETA, is a 59 M who presents to the hospital with weakness and a fall. He did not hit his head or lose consciousness. He has had an extensive recent medical history with cirrhosis and UTI with staghorn calculus, he was in the ICUin October. 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 Was not considered to be a liver transplant candidate and was placed on anticoagulation. He has had a couple of readmissions for weakness and debility. [place] to possibly have aUTI given a staghorn calculus in his stent, I do think that his urine is always can appear contaminated and given his recent history with C. difficile not necessarily an antibiotic candidate. He is demonstrating signs of renal failurewith creatinine of 3.54, during his previous evaluations at this hospital his renal function was normal at 0.8 but he has steadily been climbing since the beginning of December. He is on I believe Lasix and Aldactone for his cirrhosis. Heis also hypokalemic, he is on lactulose so aside from the diarrhea he says that he has been having it couple episodes of vomiting over the last couple days. Heis receiving potassium infusion in the ER. [facility] Medical History Weakness Diarrhea Sepsis Acidosis, lactic Acute hypotension Acute UTI Chronic hypotension Obesity (BMI 30-39.9) Chronic back pain ISABEL (acute kidney injury) Hypotension Hepatic encephalopathy Hyperbilirubinemia 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) HLD (hyperlipidemia) HTN (hypertension) Thrombocytopenia Chronic anemia Former tobacco use Diabetes mellitus, type 2 ABBY on CPAP Back pain Home Medications ?Medication ?Instructions ?Recorded ?Last Taken ?Type rifaximin 550 mg tablet (Xifaxan) 550 mg PO BID diarrh ea #60 tabs 09/02/24 11/28/24 Rx insulin lispro 100 unit/mL See Protocol subcut ACHS di abetes 09/14/24 Unknown Rx subcutaneous pen (Humalog KwikPen #0 mL (U-100) Insulin) acetaminophen 500 mg tablet 1,000 mg PO Q8 PRN fever o r pain 10/28/24 Unknown History calcium 500 mg (as 1 tab PO DAILY supplement 11/28/24 History carbonate)-vitamin D3 5 mcg (200 unit) tablet (Oyster Shell Calcium-Vitamin D3) folic acid 1 mg tablet 1 mg PO DAILY supplement 11/28/24 History atorvastatin 40 mg tablet 40 mg PO DAILY cholesterol 0 11/21/24 11/27/24 History furosemide 20 mg tablet 40 mg PO DAILY diuretic 11/0311/28/24 History magnesium oxide 400 mg (241.3 mg 400 mg PO DAILY suppl ement 11/21/24 11/28/24 History magnesium) tablet metformin 500 mg tablet,extended 500 mg PO QPM diabete s 11/21/24 11/27/24 History release 24 hr pantoprazole 20 mg tablet,delayed 20 mg PO DAILY reflu x 11/21/24 11/28/24 History release sodium bicarbonate 650 mg tablet 650 mg PO BID supplem ent 11/21/24 11/28/24 History spironolactone 50 mg tablet 50 mg PO DAILY diuretic 11/28/24 History thiamine HCl (vitamin B1) 100 mg 100 mg PO DAILY suppl ement 11/21/24 Unknown History tablet zinc sulfate 50 mg zinc (220 mg) 50 mg PO DAILY supple ment 11/21/24 11/28/24 History tablet ascorbic acid (vitamin C) 500 mg 500 mg PO BID vitamin #60 tabs 11/25/24 11/28/24 Rx tablet midodrine 10 mg tablet 10 mg PO TID blood pressure 1 11/25/24 Unknown Rx month #90 tabs lactulose 10 gram/15 mL oral 15 ml PO TID PRN constipa tion 11/28/24 Unknown History solution (Constulose) L.acidophil,salivari-Bifido 1 cap PO TID #120 caps 08/28 Unknown Rx bifidum-Strep thermoph 175 mg capsule potassium, sodium phosphates 280 1 packet PO BID #100 ea 12/02/24 Unknown Rx mg-160 mg-250 mg oral powder packet vancomycin 125 mg capsule 125 mg PO Q6H 35 days #56 ca ps 12/02/24 Unknown Rx levofloxacin 500 mg tablet 500 mg PO DAILY infection 2 days 12/26/24 Unknown Rx #4 tabs cephalexin 500 mg capsule 500 mg PO TID 7 days #21 cap s 12/30/24 Unknown Rx Allergy/AdvReac Type Severity Reaction Status Date / Time No Known Allergies Allergy Verified 01/02/25 03:00 Family History Mother Heart disease Hypertension CAD (coronary artery disease) Myocardial infarction Father Hypertension Heart disease Heart failure Surgical History History of tonsillectomy and adenoidectomy Social History household members: significant other Smoking Status: Former smoker how long ago did patient quit smoking: Quit ~ 3-4 months prior (fall 2023), smoked 1.5 ppd since teen until quit. alcohol intake: never substance use type: does not use ROS Constitutional Constitutional: Reports weakness; Denies chills, fatigue, fever(s) or malaise Eyes Eyes: Denies blurry vision ENT HEENT: Denies headache(s) or nasal discharge Cardiovascular Cardiovascular: Denies chest pain, dyspnea on exertion or syncope Respiratory/Chest Respiratory/Chest: Denies cough, shortness of breath at rest or shortness of breath with exertion Gastrointestinal Gastrointestinal: Reports vomiting; Denies constipation, diarrhea or nausea Genitourinary Genitourinary: Denies dysuria Neurologic Neurologic: Denies focal weakness, numbness or tremor(s) Psychiatric Psychiatric: Denies anxiety or depression Vital Signs Vital Signs Vital Signs: 01/02/25 02:59 01/02/25 02:59 01/02/25 04:59 Temperature 98.5 F Temperature Source Oral Pulse Rate 72 68 Respiratory Rate 18 16 Respiratory Effort Normal Respiratory Pattern Normal Blood Pressure 97/68 115/57 L Blood Pressure Mean 77 76 Pulse Ox 98 Oxygen Delivery Method Room Air Weight Weight: 186 lb 4.65 oz Body Mass Index (BMI) 27.5 Physical Exam Narrative General: Alert, Oriented x3, Cooperative, No apparent distress HEENT: Atraumatic, PERRLA, EOMI, Normocephalic Oral: Moist Mucosa, poor dentition Neck: Supple, No JVD Lungs: Diminished, Normal air movement, No rhonchi, No wheeze, No rales Cardiovascular: Regular rate, Regular Rhythm, Normal S1, Normal S2, No murmurs Abdomen: Soft, Non Tender, Non-Distended, No Hepato-splenomegaly Extremities: Edema, Capillary Refill Less than 3 Seconds Skin: No rashes, No breakdown Musculoskeletal: Tenderness to palpation of his mid left thigh from his frequentfalls over the last couple days Neurological: No focal neurological deficits, moves all extremities Psych/Mental Status: Normal Affect, Appropriate Results Lab / Micro Data 01/02/25 03:30 01/02/25 03:30 Labs: Laboratory Results - last 24 hr 01/02/25 03:30: WBC 12.7 H, RBC 3.21 L, Hgb 9.5 L, Hct 28.0 L, MCV 87.2, MCH 29.6, MCHC 33.9, RDW Std Deviation 51.1 H, RDW Coeff of Francis 16.4 H, Plt Count 171, MPV 12.1 H, Immature Gran % (Auto) 0.600, Neut % (Auto) 68.0, Lymph % (Auto) 12.2 L, [place] % (Auto) 11.9 H, Eos % (Auto) 6.9 H, Baso % (Auto) 0.4, Absolute Neuts (auto) 8.6 H, Absolute Lymphs (auto) 1.55, Nucleated RBC % 0, Sodium 132 L, Potassium 2.6 L*, Chloride 95 L, Carbon Dioxide 19.6 L, Anion Gap 17 H, BUN 46 H, Creatinine 3.54 H, Estim Creat Clear Calc 22.75 L, Est GFR (MDRD) Non-Af 19 L, BUN/Creatinine Ratio 12.9, Glucose 164 H, Calcium 9.0, TotalBilirubin 0.90, AST 37, ALT 23, Alkaline Phosphatase 191 H, Total Protein 6.1, Albumin 2.8 L, Globulin 3.4, Albumin/Globulin Ratio 0.8 L, Lipase 45 01/02/25 03:54: Urine Color Red, Urine Clarity Turbid, Urine pH 6.0, Ur SpecificGravity 1.015, Urine Protein 100 H, Urine Glucose (UA) Normal, Urine Ketones 5 H, Urine Occult Blood 250 H, Urine Nitrite Negative, Urine Bilirubin Negative, Urine Urobilinogen Normal, Ur Leukocyte Esterase 500 H, Urine RBC > 100 SEEN, Urine WBC 25-50 SEEN, Ur Squamous Epith Cells 0 SEEN, Urine Bacteria 3+, Urine Mucus 0 SEEN 01/02/25 04:18: Ethyl Alcohol < 10.1 Imaging Radiology Impression Abdomen/Pelvis CT 01/02/25 03:45 IMPRESSION: No evidence of acute intra-abdominal traumatic injury on noncontrast imaging. Similar appearance of cirrhosis, splenomegaly and varices and cholelithiasis as above. Left double-J ureteral stent again appears in place with similar appearance of the large left renal staghorn and some associated left pelvicaliectasis, unchanged. Multilevel vertebral compression deformities are not significantly changed in appearance. A linear area of sclerosis left sacrum suggesting insufficiency fracture again noted, unchanged. Reading Location: [id number] Brain CT 01/02/25 03:55 IMPRESSION: No intracranial hemorrhage, mass effect or calvarial fracture. Moderate volume loss, atrophy again noted. Mild left maxillary sinus disease appears mildly decreased from the prior study. Reading Location: [id number] Cervical Spine CT 01/02/25 03:55 IMPRESSION: No fracture or malalignment. Multilevel spondylosis/discogenic change greatest at C5-6 Reading Location: [facility] Assessment & Plan Assessment/Plan (1) Fall: (2) Acute kidney injury: PLAN: Plan 1. Weakness and debility with a fall in the setting of significant hypokalemia and renal failure and severe hypokalemia ? He has a staghorn calculus on the left with left ureteral stent ? Continue with gentle hydration given his history of cirrhosis ? Urine was a little bit dirty on his previous evaluation in the emergency room however he was not clinically significant based on colony-forming units and given his history of C. difficile we will hold off antibiotics, he did receive adose of Zosyn in the emergency room. He had been discharged on 7 days of Keflexon 12/30/2024 and he had been discharged on 4 days of Levaquin on 12/26/2024 from the emergency room ? PT/OT for evaluation 2. Cirrhosis due to NAFLD/GERD/extensive portal vein thrombosis ? Can resume his home liver medications when verified ? Given his renal failure we will hold off of any Lasix or Aldactone ? Can resume his PPI when verified ? Can resume his home anticoagulation when verified 3. C. difficile colitis ? He was placed on a prolonged taper which she should be close to completing, can resume once verified 4. DM2 ? Will hold his home metformin ? Continue with sliding scale insulin ? Accu-Cheks ACHS ? Will monitor make adjustments as necessary DVT: Home anticoagulation once verified Charges/Coding Visit Charges Inpatient E&M: 96442 Init Hosp L2 01/02/25 0644 <Electronically signed by Buster Fuchs MD> Cosigner Signature (if applicable): CC: YG Elias; Dr. Buster Fuchs MD~ Signed [facility] Work Phone: 1(165) 553-293106-01-2025 Discharge summary Author Rdody Reeves [facility] Note Date/Time January 02, 2025 6:00a m [facility] Medical Records Department [address] [place] [address] Emergency Department Summary 01/02/25 MR#: [id number] Acct: [id number] Name: FRANKLIN ARCHULETA Rep #:[id number] : 1965 59 From: Roddy Reeves DO PCP: BRITTANY PenaC Status:REG E R Location: ED [facility] History of Present Illness Chief Complaint: Weakness Narrative Narrative: Patient is a 59-year-old male past medical history of hypertension, hyperlipidemia, thrombocytopenia, diabetes, hepatic encephalopathy, type 2 diabetes, hyponatremia who presents to the emergency department the chief complaint of fall and weakness. Patient states that he had a fall earlier today and he states that he does not think he hit his head but cannot exactly recall. He states that he feels extremely weak and notes that he has had vomiting for 2 days as well. He states that he was here recently and was sent home. [facility] Medical History Weakness Diarrhea Sepsis Acidosis, lactic Acute hypotension Acute UTI Chronic hypotension Obesity (BMI 30-39.9) Chronic back pain ISABEL (acute kidney injury) Hypotension Hepatic encephalopathy Hyperbilirubinemia 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) HLD (hyperlipidemia) HTN (hypertension) Thrombocytopenia Chronic anemia Former tobacco use Diabetes mellitus, type 2 ABBY on CPAP Back pain Home Medications ?Medication ?Instructions ?Recorded ?Last Taken ?Type rifaximin 550 mg tablet (Xifaxan) 550 mg PO BID [facility] ea #60 tabs 09/02/24 11/28/24 Rx insulin lispro 100 unit/mL See Protocol subcut ACHS di abetes 09/14/24 Unknown Rx subcutaneous pen (Humalog KwikPen #0 mL (U-100) Insulin) acetaminophen 500 mg tablet 1,000 mg PO Q8 PRN fever o r pain 10/28/24 Unknown History calcium 500 mg (as 1 tab PO DAILY supplement 11/28/24 History carbonate)-vitamin D3 5 mcg (200 unit) tablet (Oyster Shell Calcium-Vitamin D3) folic acid 1 mg tablet 1 mg PO DAILY supplement 11/28/24 History atorvastatin 40 mg tablet 40 mg PO DAILY cholesterol 0 11/21/24 11/27/24 History furosemide 20 mg tablet 40 mg PO DAILY diuretic 11/0311/28/24 History magnesium oxide 400 mg (241.3 mg 400 mg PO DAILY suppl ement 11/21/24 11/28/24 History magnesium) tablet metformin 500 mg tablet,extended 500 mg PO QPM diabete s 11/21/24 11/27/24 History release 24 hr pantoprazole 20 mg tablet,delayed 20 mg PO DAILY reflu x 11/21/24 11/28/24 History release sodium bicarbonate 650 mg tablet 650 mg PO BID supplem ent 11/21/24 11/28/24 History spironolactone 50 mg tablet 50 mg PO DAILY diuretic 11/28/24 History thiamine HCl (vitamin B1) 100 mg 100 mg PO DAILY suppl ement 11/21/24 Unknown History tablet zinc sulfate 50 mg zinc (220 mg) 50 mg PO DAILY supple ment 11/21/24 11/28/24 History tablet ascorbic acid (vitamin C) 500 mg 500 mg PO BID vitamin #60 tabs 11/25/24 11/28/24 Rx tablet midodrine 10 mg tablet 10 mg PO TID blood pressure 1 11/25/24 Unknown Rx month #90 tabs lactulose 10 gram/15 mL oral 15 ml PO TID PRN constipa tion 11/28/24 Unknown History solution (Constulose) L.acidophil,salivari-Bifido 1 cap PO TID #120 caps 08/28 Unknown Rx bifidum-Strep thermoph 175 mg capsule potassium, sodium phosphates 280 1 packet PO BID #100 ea 12/02/24 Unknown Rx mg-160 mg-250 mg oral powder packet vancomycin 125 mg capsule 125 mg PO Q6H 35 days #56 ca ps 12/02/24 Unknown Rx levofloxacin 500 mg tablet 500 mg PO DAILY infection 2 days 12/26/24 Unknown Rx #4 tabs cephalexin 500 mg capsule 500 mg PO TID 7 days #21 cap s 12/30/24 Unknown Rx Allergy/AdvReac Type Severity Reaction Status Date / Time No Known Allergies Allergy Verified 01/02/25 03:00 Family History Mother Heart disease Hypertension CAD (coronary artery disease) Myocardial infarction Father Hypertension Heart disease Heart failure Surgical History History of tonsillectomy and adenoidectomy Social History household members: significant other Smoking Status: Former smoker how long ago did patient quit smoking: Quit ~ 3-4 months prior (fall 2023), smoked 1.5 ppd since teen until quit. alcohol intake: never substance use type: does not use ROS ROS ED ROS Narrative Constitutional: Denies fevers, chills, headaches Eyes: Denies change in vision double vision blurred vision Cardiovascular: Denies chest pain Respiratory: Denies shortness of breath Abdomen: Complains of nausea and vomiting as noted above : Denies urinary symptoms Neurological: Complains of generalized weakness denies any numbness or tingling Musculoskeletal: Denies back pain Skin: Denies any rashes or lesions EXAM Physical Exam Narrative Exam Narrative: General: Patient lying in bed rest comfortably did not be to be in acute distress Head: Atraumatic, normocephalic Eyes: PERRL bilateral, EOMI bilateral, no conjunctival injection noted Neck: Soft and supple, trach midline Cardiovascular: Regular rate and rhythm Respiratory: Clear to auscultation bilaterally Abdomen: Soft, diffuse tenderness to palpation no rebound or guarding on exam Extremities: +4/5 strength noted in the bilateral upper and lower extremities, radial pulses +2/4 in the bilateral extremities Neurological: Patient following commands that he was at [facility] that wewere in the end of December going into January Skin: Warm, dry, intact Const Vital Signs: 01/02/25 02:59 01/02/25 02:59 01/02/25 04:59 Temperature 98.5 F Temperature Source Oral Pulse Rate 72 68 Respiratory Rate 18 16 Respiratory Effort Normal Respiratory Pattern Normal Blood Pressure 97/68 115/57 L Blood Pressure Mean 77 76 Pulse Ox 98 Oxygen Delivery Method Room Air MDM MDM MDM Narrative Medical decision making narrative: Patient is a 51-year-old male who presented to the emergency department with chief complaint of fall and generalized weakness. On the differential diagnose includes but not limited to ACS, pneumonia, electrolyte abnormality, UTI. Once workup is obtained reviewed he will be reevaluated. Patient be given 30 cc/kg bolus of IV fluids. Previous records were reviewed the patient was just here on 12/26/2024 and 12/30/2024 was ultimately diagnosed with UTI and given a gram of Rocephin was sent home on oral antibiotics. The culture result was reviewed which showed GPCposs Enterococcus 1000 10,000 CFU per mL with mixed gram-positive organisms as well 25,000-50,000 CFU per mL Patient CBC was reviewed and was significant for leukocytosis of 12,000, hemoglobin 9.5, platelet count was 171. Patient's sodium was 132, potassium lowat 2.6 he will be given 40 mill equivalents orally and 40 mill equivalents intravenously, patient anion gap of 17, creatinine was elevated to too 3.54 which is up from 12/30/2024. Patient's magnesium level pending, AST and ALT normal at 37 and 23 respectively. Patient lipase normal at 45, urinalysis reviewed and appears to be worsening with 500 leukocyte esterase with 25-50 white cells and 3+ bacteria he will be given dose of Zosyn. Patient CT head andbrain without contrast was reviewed and showed no acute intracranial hemorrhage mass effect or calvarial fracture moderate volume loss atrophy again noted. Mild left maxillary sinus disease mildly decreased from the prior study. Patient CT cervical spine reviewed showed no fracture or malalignment multilevelspondylitic discogenic change greatest at C5-C6. CT abdomen/pelvis without contrast reviewed and showed no evidence of acute intra-abdominal traumatic injury., Similar appearance of cirrhosis splenomegaly and varices. Left double-J ureteral stent again appears in place with similar appearance of a large left renal staghorn and some associated left pelvic atelectasis unchanged. Multilevel vertebral compression deformities not significantly changed in appearance. Patient given 4.5 g of Zosyn at 4:45 AM. Reperfusion assessment was performed and patient remains normotensive no vasopressors indicated. Patient's case will be discussed with hospitalist for admission for his generalized weakness, ISABEL, UTI. Discussed case with hospitalist Dr. Fuchs who accept patient for admission. Patient notified is agreeable to plan all questions answered. Lab Data Labs: Laboratory Results - last 24 hr 01/02/25 01/02/25 01/02/25 03:30 03:54 04:18 WBC 12.7 H RBC 3.21 L Hgb 9.5 L Hct 28.0 L MCV 87.2 MCH 29.6 MCHC 33.9 RDW Std Deviation 51.1 H RDW Coeff of Francis 16.4 H Plt Count 171 MPV 12.1 H Immature Gran % (Auto) 0.600 Neut % (Auto) 68.0 Lymph % (Auto) 12.2 L Bonneville % (Auto) 11.9 H Eos % (Auto) 6.9 H Baso % (Auto) 0.4 Absolute Neuts (auto) 8.6 H Absolute Lymphs (auto) 1.55 Nucleated RBC % 0 Sodium 132 L Potassium 2.6 L* Chloride 95 L Carbon Dioxide 19.6 L Anion Gap 17 H BUN 46 H Creatinine 3.54 H Estim Creat Clear Calc 22.75 L Est GFR (MDRD) Non-Af 19 L BUN/Creatinine Ratio 12.9 Glucose 164 H Calcium 9.0 Magnesium 2.0 Total Bilirubin 0.90 AST 37 ALT 23 Alkaline Phosphatase 191 H Total Protein 6.1 Albumin 2.8 L Globulin 3.4 Albumin/Globulin Ratio 0.8 L Lipase 45 Urine Color Red Urine Clarity Turbid Urine pH 6.0 Ur Specific Jonancy 1.015 Urine Protein 100 H Urine Glucose (UA) Normal Urine Ketones 5 H Urine Occult Blood 250 H Urine Nitrite Negative Urine Bilirubin Negative Urine Urobilinogen Normal Ur Leukocyte Esterase 500 H Urine RBC > 100 SEEN Urine WBC 25-50 SEEN Ur Squamous Epith Cells 0 SEEN Urine Bacteria 3+ Urine Mucus 0 SEEN Ethyl Alcohol < 10.1 Radiography Diagnostic Testing: Clinical Impression(s) from Imaging Studies Abdomen/Pelvis CT 01/02/25 03:45 IMPRESSION: No evidence of acute intra-abdominal traumatic injury on noncontrast imaging. Similar appearance of cirrhosis, splenomegaly and varices and cholelithiasis as above. Left double-J ureteral stent again appears in place with similar appearance of the large left renal staghorn and some associated left pelvicaliectasis, unchanged. Multilevel vertebral compression deformities are not significantly changed in appearance. A linear area of sclerosis left sacrum suggesting insufficiency fracture again noted, unchanged. Reading Location: [facility] Brain CT 01/02/25 03:55 IMPRESSION: No intracranial hemorrhage, mass effect or calvarial fracture. Moderate volume loss, atrophy again noted. Mild left maxillary sinus disease appears mildly decreased from the prior study. Reading Location: [facility] Cervical Spine CT 01/02/25 03:55 IMPRESSION: No fracture or malalignment. Multilevel spondylosis/discogenic change greatest at C5-6 Reading Location: [facility] Discharge Plan Triage Chief Complaint: Weakness ED Provider: Roddy Reeves Dx/Rx/DC Orders Clinical Impression: Hypokalemia, Generalized weakness, Urinary tract infection, Acute kidney injury, Fall Prescriptions: No Action Xifaxan 550 mg Tablet 550 mg PO BID Qty: 60 0RF insulin lispro [Humalog KwikPen Insulin] 100 unit/mL Insulin Pen See Protocol subcut ACHS Qty: 0 0RF Protocol: 4. Sliding Scale Insulin High-Med Dosing Condition: 150-199 mg/dl = 2 units Condition: 200-259 mg/dl = 4 units Condition: 260-324 mg/dl = 6 units Condition: 325-374 mg/dl = 8 units Condition: 375-409 mg/dl = 10 units Condition: 410-449 mg/dl = 11 units Condition: Greater than 449 call physician Protocol Text: Suggested for: - Patients on Total Daily Insulin Dose of 56-80 units - Patient who are known to be insulin resistant or septic HIGH MEDIUM DOSING ALGORITHM Patient Comments: PT DOESNT TAKE OFTEN folic acid 1 mg tablet 1 mg PO DAILY calcium carbonate-vitamin D3 [Oyster Shell Calcium-Vit D3] 500 mg-5 mcg (200 unit) tablet 1 tab PO DAILY acetaminophen 500 mg Tablet 1,000 mg PO Q8 PRN (Reason: fever or pain) atorvastatin 40 mg tablet 40 mg PO DAILY furosemide 20 mg tablet 40 mg PO DAILY magnesium oxide 400 mg (241.3 mg magnesium) tablet 400 mg PO DAILY sodium bicarbonate 650 mg tablet 650 mg PO BID metformin 500 mg tablet extended release 24 hr 500 mg PO QPM spironolactone 50 mg tablet 50 mg PO DAILY thiamine HCl (vitamin B1) 100 mg tablet 100 mg PO DAILY pantoprazole 20 mg tablet,delayed release (DR/EC) 20 mg PO DAILY zinc sulfate 50 mg zinc (220 mg) tablet 50 mg PO DAILY midodrine 10 mg tablet 10 mg PO TID 30 Days Qty: 90 0RF Rx Instructions: do not give last dose of day after 6PM or within 4 hrs of bedtime ascorbic acid (vitamin C) 500 mg tablet 500 mg PO BID Qty: 60 2RF lactulose [Constulose] 10 gram/15 mL solution 15 ml PO TID PRN (Reason: constipation) Patient Comments: HASNT HAD TO TAKE Rx Instructions: Goal to have 2 soft bowel movements per day vancomycin 125 mg capsule 125 mg PO Q6H 35 Days Qty: 56 0RF Rx Instructions: 4x a day for 7 days, then 2x a day for 7 days, then 1x a day for 7 days, then 1x q48h for 14 days. L.acidoph,saliva-B.bif-S.therm 175 mg Capsule 1 cap PO TID Qty: 120 0RF potassium, sodium phosphates 280-160-250 mg Powder In Packet 1 packet PO BID Qty: 100 0RF levofloxacin 500 mg tablet 500 mg PO DAILY 2 Days Qty: 4 0RF cephalexin 500 mg capsule 500 mg PO TID 7 Days Qty: 21 0RF Primary Care Provider: Josy Elias Referrals: Josy Elias NP-C [Primary Care Provider] - Print Language: Swedish Disposition Disposition: Acute Care Hospital [facility] What to do if you have Problems For any increased pain, shortness of breath, bleeding, nausea or vomiting, chestpain, or any unexpected problems, contact your Primary Care Provider. Call [facility] ([phone]) or report to the closest Emergency Room. Call 911 if necessary. 01/02/25 0600 <Electronically signed by Roddy Reeves DO> Cosigner Signature (if applicable): CC: YG Elias ~ Signed [facility] Work Phone: 1(610) 959-696006-01-2025 Radiology Diagnostic study [facility]06-01-2025 Radiology Diagnostic study [facility]06-01-2025 Radiology Diagnostic study [facility] 12-30-2024 Radiology Diagnostic study [facility]-25-2025 Radiology Diagnostic study [facility]-14-2025 Radiology Diagnostic study [facility]05-01-2025 [facility]04-24-2025 [facility]04-20-2025 Radiology Diagnostic study [facility]04-17-2025 Telephone encounter Note* Telephone Encounter - Marah Arauz LSW - 11/18/2024 2:24 PM EDT SW received two messages from pt's RN . Pt's RN stated that the pt wanted to speak to transplant social work to clarify something. Pt was denied at liver selection committee on 11/17/24 due to numerous psychosocial issues (lack of caregivers, unstable housing, unstable finances, unreliable transportation). JEANNINE notified RN that once a pt is closed in selection SW is not allowed to follow up with pt. JEANNINE called pt's following doctor, Dr. Roger Mosley. Pt will be scheduled to follow up with [facility] Employee Communications Coordinator. JEANNINE asked that Dr. Mosley inform this pt that he can return to our transplant center again and be re-evaluated once he has addressed his prohibitive psychosocial concerns (lack of caregivers, unstable housing, unstable finances, unreliable transportation). Dr. Mosley agreed to do so. [facility] Work Phone: 1(887) 343-649504-17-2025 Miscellaneous Notes* Telephone Encounter - Marah Arauz LSW - 11/18/2024 2:24 PM EDT SW received two messages from pt's RN . Pt's RN stated that the pt wanted to speak to transplant social work to clarify something. Pt was denied at liver selection committee on 11/17/24 due to numerous psychosocial issues (lack of caregivers, unstable housing, unstable finances, unreliable transportation). JEANNINE notified RN that once a pt is closed in selection SW is not allowed to follow up with pt. JEANNINE called pt's following doctor, Dr. Roger Mosley. Pt will be scheduled to follow up with [facility] Employee Communications Coordinator. JEANNINE asked that Dr. Mosley inform this pt that he can return to our transplant center again and be re-evaluated once he has addressed his prohibitive psychosocial concerns (lack of caregivers, unstable housing, unstable finances, unreliable transportation). Dr. Mosley agreed to do so. documented in this encounterAv[facility]04-[facility] Telephone encounter Note * Telephone Encounter - Jeremi Abreu RN - 11/18/2024 10:01 AM EDT Inpatient hepatology team spoke with Franklin Archuleta to advise him that his case was discussedat liver transplant selection committee on 11/17/2024 and he was declined for liver transplant due to social issues that include unstable housing, lack of income, lack of caregivers and lack of transportation. . Jeremi Abreu RN, BSN Liver Captain Room Service [facility] Work Phone: 1(196) 560-663604-17-2025 Miscellaneous Notes* Telephone Encounter - Jeremi Abreu RN - 11/18/2024 10:01 AM EDT Inpatient hepatology team spoke with Franklin Archuleta to advise him that his case was discussedat liver transplant selection committee on 11/17/2024 and he was declined for liver transplant due to social issues that include unstable housing, lack of income, lack of caregivers and lack of transportation. . Jeremi Abreu RN, BSN Liver Captain Room Service documented in this encounterAv[facility] 11-15-20[facility] History of Present illness Narrative* Marah Arauz LSW - 11/15/2024 2:35 PM EDT Orthotopic Liver Transplant (OLT) Urgent Inpatient Psychosocial Evaluation Patient: Franklin Archuleta Date Evaluated: November 15, 2024 Patient Franklin Archuleta was seen for an urgent inpatient eval on November 15, 2024. Please see separate inpatient note from this date for full documentation of the assessment, recommendations and plan. JANETTE Rucker November 15, 2024 2:35 PM documented in this encounterAv[facility]04-14-2025 [facility]04-14-2025 History of Present illness Narrative* Virgil Farley DDS - 11/15/2024 1:48 PM EDTSummary: Liver Transplant Dental Bedside Clearance See inpatient note for this encounter on 11/15/2024. 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 The patient's medication profile was reviewedand there are no identified medication issues that would preclude transplant in this patient. 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 Anticoagulation is being held atthis time but if resumed would recommend warfarin or lovenox to ease with everett-op reversal. Current Facility-Administered Medications on File Prior to Visit Medication insulin lispro injection (rapid acting) (ADMElog) insulin glargine 6 Units pen (long acting) furosemide 20 mg tab(s) (LASIX) pantoprazole 40 mg injection (PROTONIX) NaCl 0.9% iv flush bag lactulose 20 g CUP acetaminophen 650 mg tab(s) (TYLENOL) aluminum-magnesium hydroxide-simethicone 200-200-20 mg/5 mL 30 mL folic acid 1 mg tab(s) dextrose 15 gram/32 mL 15 g (TRUEPLUS) Or glucagon 1 mg injection Or dextrose 10% iv bolus melatonin 3 mg tab(s) ondansetron (PF) 4 mg injection (ZOFRAN) vancomycin 125 mg cap(s) (VANCOCIN) zinc sulfate 220 mg capsule(s) rifAXIMin 550 mg tab(s) (XIFAXAN) cegeqax-ggkmjyfam-ncxyruj D3 500 mg-5 mcg (200 unit) 1 tablet cefTRIAXone iv piggyback 2 g in dextrose (iso-osmotic) 50 mL (ROCEPHIN) sodium chloride 0.9 % (flush) 2-10 mL (BD POSIFLUSH) And perflutren lipid microspheres 1.1 mg/mL 1.3 mL injection (DEFINITY) metroNIDAZOLE iv piggyback 500 mg in NaCl (iso-osmotic) 100 mL (FLAGYL) Current Outpatient Medications on File Prior to Visit Medication Sig lidocaine (LIDODERM) 5 % Apply 1 patch as directed every 24 hours. cyclobenzaprine (FLEXERIL) 5 mg tablet Take 5 mg by mouth three times a day as needed for muscle spasm. rifAXIMin (XIFAXAN) 550 mg tablet Take 550 mg by mouth two times a day. Acetaminophen 500 mg cap Take by mouth. insulin lispro (HUMALOG KWIKPEN) 100 unit/mL Inject subcutaneously three times a day before meals. OYSTER SHELL CALCIUM-VITAMIN D 500 mg-5 mcg (200 unit) per tablet Take 1 tablet by mouth once daily. folic acid 1 mg tablet Take 1 mg by mouth once daily. furosemide (LASIX) 20 mg tablet Take 40 mg by mouth once daily. ibuprofen (MOTRIN) 800 mg tablet Take 800 mg by mouth every 8 hours as needed for fever (specify temp.) or pain. pantoprazole DR (PROTONIX) 40 mg tablet Take 40 mg by mouth once daily. Lizett Guzman, PharmD Transplant Pharmacy Clinical Specialist Pager: [phone] documented in this encounterAvita [facility]04-11-2025 [facility]04-11-2025 [facility]04-11-2025 History of Present illness Narrative* Jeremi Abreu RN - 11/12/2024 2:52 PM EDT The following information has been provided/discussed with the patient/family during Shared MedicalAppointment education class: Informed Consent for Organ Transplant Program Participation version February 20, 2023. SRTR information provided and questions answered. Informed patient to call severity of illness coordinator with any questions. [facility] information regarding multiple listings for organ transplantation Evaluation process including presentation to selection committee and listing criteria Surgical procedure, including post-operative management, hospitalization, immunosuppressive medications and their side effects (including the risk for hypertension, diabetes, kidney problems and cancers) and emt intermediate follow up after transplant. Possibility of recurrent disease discussed with patient. Patient was advised that if they choose not to proceed with transplant, alternative treatment will be provided Potential medical or psychosocial risks Discussed organ donor risk factors including potential risk of developing transmissible disease including but not limited to HIV, hepatitis B and C, malaria, and malignancy. Patient's right to decline such offers for transplant was also addressed Patient was provided with [facility] information sheet regarding transplantation of HepatitisC viremic organs into Hepatitis C negative recipients. Risks and benefits of hepatitis C transplantand treatment were discussed. Patient was advised that he/she can refuse transplantation at any time prior to transplant without any penalty. Patient advised that transplants not performed in a medicare-approved hospital may negatively affect payment for medication coverage by Medicare Part B. READINESS TO LEARN COGNITIVE ABILITY: Alert and oriented MOTIVATION TO LEARN: Interested FAMILY SUPPORT: Unable to assess - Family not present INSTRUCTION PROVIDED TO: Patient PATIENT LEARNS BEST BY: Unable to Assess FACTORS AFFECTING LEARNING: None PHYSICAL LIMITATIONS AFFECTING LEARNING: None LEARNING RESPONSE DIAGNOSIS: MASH METHOD OF INSTRUCTION: Verbal instruction Video PATIENT / FAMILY RESPONSE: Information received as demonstrated by interest and questions FOLLOW-UP PLAN: Contact information given. SUPPLEMENTAL MATERIAL: None REFERRAL (RECOMMENDATION): None Electronically Signed By: Jeremi Abreu RN In Department: TRANSPLANT CENTER documented in this encounterAvita [facility]04-11-2025 Note[facility]04-11-2025 History of Present illness Narrative* Marah Arauz LSW - 11/12/2024 1:16 PM EDT Orthotopic Liver Transplant (OLT) Urgent Inpatient Psychosocial Evaluation Patient: Franklin Archuleta Date Evaluated: November 12, 2024 Patient Franklin Archuleta was seen for an urgent inpatient eval on November 12, 2024. Please see separate inpatient note from this date for full documentation of the assessment, recommendations and plan. JANETTE Rucker November 12, 2024 1:16 PM documented in this encounterAvita Health [facility]04-11-2025 Miscellaneous Notes* Telephone Encounter - Jeremi Abreu RN - 11/12/2024 12:08 PM EDT INFORMED CONSENT Franklin Chapa [facility] Medical Record: [id number] Informed consent for Organ Transplant Program Participation Informed Consent for Organ Transplant Program Participation version February 20, 2023 was provided topatient. The risks, benefits, alternatives and anticipated outcomes of the Organ Transplant Program Participation, and tasks of the personnel to be involved were discussed with the patient. The patient consents to participation in the Organ Transplant Program. The patient was provided an opportunity to ask questions and have questions answered. Jeremi Abreu RN, BSN Liver Captain Room Service documented in this encounterAvita Health [facility]04-11-2025 Telephone encounter Note * Telephone Encounter - Jeremi Abreu RN - 11/12/2024 12:08 PM EDT INFORMED CONSENT Franklin Chapa [facility] Medical Record: [id number] Informed consent for Organ Transplant Program Participation Informed Consent for Organ Transplant Program Participation version February 20, 2023 was provided topatient. The risks, benefits, alternatives and anticipated outcomes of the Organ Transplant Program Participation, and tasks of the personnel to be involved were discussed with the patient. The patient consents to participation in the Organ Transplant Program. The patient was provided an opportunity to ask questions and have questions answered. Jeremi Abreu RN, BSN Liver Captain Room Service [facility] Work Phone: 1(847) 473-284104-11-2025 [facility]04-11-2025 NoteHNO ID: [id number] Author: KIRTI VELÁSQUEZ RN Service: Nursing Author Type: Registered Nurse Type: Nursing Progress Note Filed: 11/12/2024 00:58 Note Text: Other: PTTAC-no clot detected at 320-heparin gtt stopped-need futher orders-budget consultant notifiedGerman Hospital04-10-2025 [facility] 11-11-2024 [facility]04-10-2025 [facility]04-09-2025 Discharge summary Author Kathie Lemos [facility] Note Date/Time November 10, 2024 8:42 pm [facility] Medical Records Department [address] [place] [address] Discharge Summary 11/10/241936 MR#: [id number] Acct: [id number] Name: FRANKLIN ARCHULETA Rep #:[id number] : 1965 59 From: Kathie Lemos MD PCP: Care Physician,No Primary Status :ADM IN Location: [place] [address] Providers Date of Admission: 10/29/24 Date of Discharge: 11/10/24 Primary Care Physician: No Primary Care Phys Consultations 10/29/24 01:15 Consult: Urology Routine Consulting Provider: Foster Rascon Reason for Consult: Sepsis with UTI and Staghorn Calculus. EMERGENT Consult: No MD Notified: Yes Date Notified: 10/29/24 Time Notified: 08:07 Method of Notification: Verbal 10/29/24 01:47 Consult: General Internist And Physician Leader / Pulmonary Medicine Routine Consulting Provider: Intensivists/Pulmonary Med Reason for Consult: Sepsis, UTI, Diarrhea, Abdominal Pain and Back Pain. EMERGENT Consult: No MD Notified: Yes Date Notified: 10/29/24 Time Notified: 04:58 Method of Notification: Text 10/30/24 03:54 Consult: Gastroenterology Routine Consulting Provider: [facility] Reason for Consult: BOYER, elevated ammonia EMERGENT Consult: No MD Notified: Yes Date Notified: 10/30/24 Time Notified: 07:31 Method of Notification: Text 11/09/24 21:26 Consult: Gastroenterology Routine Consulting Provider: [facility] Reason for Consult: cirrhosis,ascites,splenic thrombosis, low plts, possible dec in heidy motili EMERGENT Consult: No MD Notified: Yes Date Notified: 11/10/24 Time Notified: 05:35 Method of Notification: Text Consult: Oncology/Hematology Routine Consulting Provider: [facility] Reason for Consult: splenic thrombosis in cojunction w/ thrombocytopenia and active hematuria EMERGENT Consult: No MD Notified: Yes Date Notified: 11/10/24 Time Notified: 06:36 Method of Notification: Text Consult: Urology Routine Consulting Provider: Foster Rascon Reason for Consult: reconsult, staghorn coliculi, low plts, thrombosis, ongoing hematuria EMERGENT Consult: No MD Notified: Yes Date Notified: 11/10/24 Time Notified: 06:39 Method of Notification: phone Reason For Visit: SEPSIS, UTI, DIARRHEA & ABDOMINAL PAIN Diagnosis Discharge Diagnosis (1) Sepsis: Status: Acute Code(s): A41.9 - Sepsis, unspecified organism Qualifiers: Sepsis acute organ dysfunction status: with acute organ dysfunction Sepsis type: sepsis due to unspecified organism Severe sepsis acute organ dysfunction type: unspecified Severe sepsis shock status: with septic shock Qualified Code(s): A41.9 - Sepsis, unspecified organism; R65.21 - Severe sepsis with septic shock Plan # 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 difficile colitis present on admission # Cirrhosis secondary to NAFLD #Type 2 diabetes mellitus # Hyponatremia # Known staghorn colliculi with hematuria Medications at Discharge Home Medications lidocaine 5 % topical patch 3 patch topical DAILY #90 ea 09/02/24 pantoprazole 40 mg tablet,delayed release 40 mg PO BID #60 tabs 09/02/24 rifaximin 550 mg tablet (Xifaxan) 550 mg PO BID #60 tabs 09/02/24 cyclobenzaprine 5 mg tablet 5 mg PO TID PRN muscle spasm #0 tabs 09/14/24 insulin lispro 100 unit/mL subcutaneous pen (Humalog KwikPen (U-100) Insulin) See Protocol subcut ACHS #0 mL 09/14/24 acetaminophen 500 mg tablet 1,000 mg PO Q8 PRN fever or pain 10/28/24 calcium 500 mg (as carbonate)-vitamin D3 5 mcg (200 unit) tablet (Oyster Shell Calcium-Vitamin D3) 1 tab PO DAILY 10/28/24 folic acid 1 mg tablet 1 mg PO DAILY 10/28/24 furosemide 40 mg tablet 40 mg PO DAILY 10/28/24 ibuprofen 800 mg tablet 800 mg PO TID PRN PRN fever or pain 10/28/24 Hospital Course Summary of Care Provided Minutes Spent on Discharge: 65 Hospital Course: # 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 difficile colitis present on admission # Cirrhosis secondary to NAFLD #Type 2 diabetes mellitus # Hyponatremia # Known staghorn colliculi with hematuria Patient is a 59-year-old male with a history of diabetes, staghorn colliculi, cirrhosis who presented to [facility] ED 10/29/2024 with sepsis and was found to have C. difficile. He was put on IV Flagyl and oral vancomycinand did steadily improve however hospital course was complicated by patient having decreased level of consciousness and subsequently found to have an elevated ammonia requiring lactulose administration with improvement in mental status. Patient complained of abdominal pain 11/09/2024 that was somewhat nonspecific, given history a CT of his abdomen was obtained which showed interval progression extensive thrombosis within the portal splenic confluence with now complete occlusion of the extrahepatic and intrahepatic portal veins with moderate ascites, splenomegaly, and extensive abdominal portosystemic collaterals. Urology reconsulted, hematology and oncology consulted. Urology did not feel patient was currently appropriate for intervention at this time, given his continued hematuria suspected secondary to the staghorn colliculi he is unable to be anticoagulated safely at our institution. Discussed with hematology regarding patient's clot as well as his platelets, INR, hematuria andgiven the active hematuria without present ability to stop this it was recommended to reach out to vascular regarding possible thrombectomy. Discussedwith vascular surgery who reports that this is not a procedure that would be able to be done at our institution and it would more likely be done by somebody with the ability to do a TIPS procedure or IR and recommended transfer to a tertiary facility which heme-onc was in agreement. Reach out to [facility] and ultimately patient was accepted by the director stage Dr. Neal. Patient with bed assignment 11/10, patient to be transferred to [facility] Physical Exam Narrative General: Sleeping but will wake up and be alert and answer questions appropriately, no apparent distress HEENT: Atraumatic, normocephalic Eyes: Anicteric, normal conjunctiva, extraocular movements grossly intact Neck: Supple Respiratory: Clear to auscultation bilaterally, normal respiratory effort Cardiovascular: Low-grade sinus tachycardia GI: Not tense but is full, no rebound, guarding, rigidity but does have some generalized tenderness Extremities: No edema Musculoskeletal: Moving all extremities Neuro: No overt focal neurological deficits Skin: No rashes appreciated, does appear to very tanned skin Psych: Cooperative Weight / BMI Weight Weight: 112.8 kg Body Mass Index (BMI) 36.7 ABG / Lab / Microbiology Data 11/10/24 05:27 11/10/24 05:27 Laboratory: Laboratory Results - last 24 hr 11/09/24 21:29: POC Glucose 287 H 11/10/24 05:27: WBC 19.6 H, RBC 3.55 L, Hgb 11.3 L, Hct 32.9 L, MCV 92.7, MCH 31.8, MCHC 34.3, RDW Std Deviation 62.1 H, RDW Coeff of Francis 18.1 H, Plt Count 58L, MPV 12.2 H, Immature Gran % (Auto) 1.100 H, Neut % (Auto) 83.0 H, Lymph % (Auto) 6.6 L, [place] % (Auto) 6.9, Eos % (Auto) 1.9, Baso % (Auto) 0.5, Absolute Neuts (auto) 16.2 H, Absolute Lymphs (auto) 1.30, Nucleated RBC % 0, Sodium 123 L, Potassium 3.6, Chloride 99, Carbon Dioxide 13.3 L, Anion Gap 11, BUN 19, Creatinine 1.13, Estim Creat Clear Calc 88.23, Est GFR (MDRD) Non-Af 75, BUN/Creatinine Ratio 16.6, Glucose 298 H, Calcium 9.2, Total Bilirubin 2.09 H, AST 58 H, ALT 36, Alkaline Phosphatase 310 H, Total Protein 5.7 L, Albumin 2.3 L,Globulin 3.4, Albumin/Globulin Ratio 0.7 L 11/10/24 06:39: POC Glucose 264 H 11/10/24 09:36: PT 32.3 H, INR 3.1 11/10/24 12:26: POC Glucose 255 H 11/10/24 13:12: Urine Color Brown, Urine Clarity Turbid, Urine pH 6.5, Ur Specific Jonancy 1.015, Urine Protein 500 H, Urine Glucose (UA) Normal, Urine Ketones 5 H, Urine Occult Blood 250 H, Urine Nitrite Positive H, Urine BilirubinNegative, Urine Urobilinogen 1 H, Ur Leukocyte Esterase 500 H, Urine RBC > 100 SEEN, Urine WBC 5-10 SEEN, Ur Squamous Epith Cells 0 SEEN, Urine Bacteria 2+, Urine Mucus 0 SEEN 11/10/24 16:41: POC Glucose 271 H Microbiology: Microbiology 10/29/24 01:00 Blood Culture (Wb) - Anticubital Left Blood Culture - Final No growth in 5 days. 10/29/24 00:32 Blood Culture (Wb) - Right Wrist Blood Culture - Final No growth in 5 days. 10/30/24 12:31 Stool Ova and Parasites - Final 10/29/24 02:01 Urine, Clean Catch Urine Culture - Final Culture exhibits no growth. 10/30/24 06:46 Stool Stool Lactoferrin - Final 10/30/24 06:46 Stool Enteric Bacteriology - Final 10/30/24 06:46 Stool C. difficile GDH Antigen & Toxins - Final Toxigenic C. difficile 10/30/24 06:46 Stool Clostridioides difficile (PCR) - Final Radiography Diagnostic Testing: Radiology Impression Abdomen/Pelvis CT 11/09/24 19:37 IMPRESSION: 1. Cirrhotic liver morphology without focal lesion. 2. Interval progression extensive thrombosis within the portal splenic confluence with now complete occlusion of the extrahepatic and intrahepatic portal veins. 3. Moderate ascites, splenomegaly and extensive abdominal portosystemic collaterals, compatible with sequela of portal hypertension. Reading Location: [facility] D/C Instructions DC O2, CPAP, BIPAP Needs Home O2 Discharge instructions: No Meaningful Use Info Meaningful Use Meaningful Use Diagnoses (Choose all that apply): None applicable Ischemic Stroke Statin Dosing Therapy Reference: STATIN DOSE THERAPY REFERENCE: * Patients > 75 years receive moderate or high dose statin therapy. * Patients 75 years or YOUNGER should receive HIGH intensity statin dose unless contraindicated. You will be required to document reason for non-treatment if statin daily dose does not meet guidelines. HIGH DOSE STATIN THERAPY DAILY Atorvastatin > than or = to 40 mg Rosuvastatin > than or = to 20 mg Amlodipine + Atorvastatin > than or = to 2.5/40 mg Ezetimibe + Simvastatin 10/80 mg Simvastatin 80mg Discharge Plan Admission Admit Date/Time: 10/29/24 00:43 Attending Provider: Kathie Lemos Primary Care Provider: Care Physician,No Primary Consulting Providers: Hill Caro; Foster Rascon; Buster Fuchs;Hill Acuña; Hill Herrmann; Blair Cage; Thiago Wray; Gabbi Hughes; Thai Godfrey; Juan Daniel Garza; Zachariah Glover; Scott Weston; Yue Delgadillo BAG HANGER Discharge Orders/Prescriptions Prescriptions: No Action lidocaine 5 % Adhesive Patch,Medicated 3 patch topical DAILY Qty: 90 0RF Protocol: *Topical Application Instructions APPLICATION INSTRUCTIONS: to affected region Rx Instructions: Apply to low back daily for pain pantoprazole 40 mg Tablet,Delayed Release (Dr/Ec) 40 mg PO BID Qty: 60 0RF Xifaxan 550 mg Tablet 550 mg PO BID Qty: 60 0RF insulin lispro [Humalog KwikPen Insulin] 100 unit/mL Insulin Pen See Protocol subcut ACHS Qty: 0 0RF Protocol: 4. Sliding Scale Insulin High-Med Dosing Condition: 150-199 mg/dl = 2 units Condition: 200-259 mg/dl = 4 units Condition: 260-324 mg/dl = 6 units Condition: 325-374 mg/dl = 8 units Condition: 375-409 mg/dl = 10 units Condition: 410-449 mg/dl = 11 units Condition: Greater than 449 call physician Protocol Text: Suggested for: - Patients on Total Daily Insulin Dose of 56-80 units - Patient who are known to be insulin resistant or septic HIGH MEDIUM DOSING ALGORITHM cyclobenzaprine 5 mg Tablet 5 mg PO TID PRN (Reason: muscle spasm) Qty: 0 0RF furosemide 40 mg tablet 40 mg PO DAILY ibuprofen 800 mg tablet 800 mg PO TID PRN PRN (Reason: fever or pain) folic acid 1 mg tablet 1 mg PO DAILY calcium carbonate-vitamin D3 [Oyster Shell Calcium-Vit D3] 500 mg-5 mcg (200 unit) tablet 1 tab PO DAILY acetaminophen 500 mg Tablet 1,000 mg PO Q8 PRN (Reason: fever or pain) Referrals / Follow Up: [facility] [Provider Group] - In 1 Week Care Physician,No Primary [Primary Care Provider] - Disposition Disposition (needs filled in before D/C Order can be placed): Acute Care Hospital Charges/Coding Visit Charges Inpatient E&M: 23776 Disch Hosp >30min 04/09/25 2042 <Electronically signed by Kathie Lemos MD> Cosigner Signature (if applicable): CC: Dr. Kathie Lemos MD; No Primary Care Physician~ Signed [facility] Work Phone: 1(541) 284-862804-09-2025 Discharge summary Author Kathie Lemos [facility] Note Date/Time November 10, 2024 7:37 pm [facility] Medical Records Department [address] [place] [address] Instructions for Home/Discharge Instructions 11/10/241935 MR#: [id number] Acct: [id number] Name: FRANKLIN ARCHULETA Rep #:[id number] : 1965 59 From: Kathie Lemos MD PCP: Care Physician,No Primary Status :ADM IN Discharge Instructions DC O2, CPAP, BIPAP needs Home O2 Discharge instructions: No Follow Up Care Test Results: Test results from this visit will be discussed in further detail at your follow- up appointment, if applicable. Discharge Plan Admission Admit Date/Time: 10/29/24 00:43 Attending Provider: Kathie Lemos Primary Care Provider: Care Physician,No Primary Consulting Providers: Hill Caro; Foster Rascon; Buster Fuchs;Hill Acuña; Hill Herrmann; Blair Cage; Thiago Wray; Gabbi Hughes; Thai Godfrey; Juan Daniel Garza; Zachariah Glover; Scott Weston; Yue Delgadillo BAG HANGER Discharge Orders/Prescriptions Prescriptions: No Action lidocaine 5 % Adhesive Patch,Medicated 3 patch topical DAILY Qty: 90 0RF Protocol: *Topical Application Instructions APPLICATION INSTRUCTIONS: to affected region Rx Instructions: Apply to low back daily for pain pantoprazole 40 mg Tablet,Delayed Release (Dr/Ec) 40 mg PO BID Qty: 60 0RF Xifaxan 550 mg Tablet 550 mg PO BID Qty: 60 0RF insulin lispro [Humalog KwikPen Insulin] 100 unit/mL Insulin Pen See Protocol subcut ACHS Qty: 0 0RF Protocol: 4. Sliding Scale Insulin High-Med Dosing Condition: 150-199 mg/dl = 2 units Condition: 200-259 mg/dl = 4 units Condition: 260-324 mg/dl = 6 units Condition: 325-374 mg/dl = 8 units Condition: 375-409 mg/dl = 10 units Condition: 410-449 mg/dl = 11 units Condition: Greater than 449 call physician Protocol Text: Suggested for: - Patients on Total Daily Insulin Dose of 56-80 units - Patient who are known to be insulin resistant or septic HIGH MEDIUM DOSING ALGORITHM cyclobenzaprine 5 mg Tablet 5 mg PO TID PRN (Reason: muscle spasm) Qty: 0 0RF furosemide 40 mg tablet 40 mg PO DAILY ibuprofen 800 mg tablet 800 mg PO TID PRN PRN (Reason: fever or pain) folic acid 1 mg tablet 1 mg PO DAILY calcium carbonate-vitamin D3 [Oyster Shell Calcium-Vit D3] 500 mg-5 mcg (200 unit) tablet 1 tab PO DAILY acetaminophen 500 mg Tablet 1,000 mg PO Q8 PRN (Reason: fever or pain) Referrals / Follow Up: [facility] [Provider Group] - In 1 Week Care Physician,No Primary [Primary Care Provider] - Disposition Disposition (needs filled in before D/C Order can be placed): [facility] 11/10/241936<Electronically signed by Kathie Lemos MD>Kathie Lemos MD CC: YG Delgadillo; Dr. Hill Herrmann MD; Dr. Hill Acuña MD; Dr. Hill Caro DO; Dr. Thiago Wray MD; Dr. Blair Cage MD; Dr. Foster Gresham MD; Dr. Gabbi Hughes MD; Dr. Buster Fuchs MD; Dr. Thai Godfrey MD; Dr. Zachariah Glover MD; Dr. Juan Daniel Garza MD; Dr. Scott Weston DO; No Primary Care Physician ~ Signed [facility] Work Phone: 1([phone]) 777-196904-09-2025 [facility]04-09-2025 Consult note Author Foster Rascon [facility] Note Date/Time November 10, 2024 8:59 am [facility] Medical Records Department [address] [place] [address] Consultation 11/10/24 0857 MR#: [id number] Acct: [id number] Name: FRANKLIN ARCHULETA Rep #:[id number] : 1965 59 From: Foster Rascon MD PCP: Care Physician,No Primary Status :ADM IN Location: [facility] [id number] Consult Date of Consult: 11/10/24 59-year-old male with a known staghorn calculus of the left kidney he had a stent placed emergently to decompress the kidney the stent is in good position he recently had a CT scan that demonstrated stone is still there stents in good position there is no hydronephrosis his creatinine is near normal. He does havesignificant abdominal ascites and not sure what is causing that his white count still elevated his platelets are low the patient is currently still not in optimal position to undergo any elective surgery for his kidney stone. He is out of network we did ask the insurance company authorize and payment for our network surgery for his kidney stone which is still pending. The insurance, he tells me they have to reach out the 3 other providers in his network to see if they would accept the patient. I do see if I can get authorization to do the surgery at some point once he gets stabilized I think would be very difficult for the patient to transport to another location but at this point he is not really medically stable for me to do any surgery on his kidney and his kidney stone so we will continue to monitor we will see if I get authorization and thenonce he is better we will plan to proceed with shockwave lithotripsy or percutaneous procedure. At a later date 11/10/24 0859 <Electronically signed by Foster Rascon MD> Cosigner Signature (if applicable): CC: No Primary Care Physician~ Signed [facility] Work Phone: 1([phone]) 879-222404-09-2025 [facility]04-08-2025 Progress note Author Kathie Lemos [facility] Note Date/Time November 09, 2024 9:26 pm [facility] Medical Records Department [address] [place] [address] Progress Note - Hospitalist 11/09/242120 MR#: [id number] Acct: [id number] Name: FRANKLNI ARCHULETA Rep #:[id number] : 1965 59 From: Kathie Lemos MD PCP: Care Physician,No Primary Status :ADM IN Location: [place] [address] scan w/ ascites and fluid filled mod distended stomach as well as large amount of colonic stool, will place order for lactulose enema, start reglan IV, and order gastric emptying study. Paracentesis already ordered which will likelyalso provide relief. Additionally demonstrated progression of a splenic thrombosis w/ collaterals, pt w/ hematuria given his stag horn caliculi and is thrombocytopenic, will c/s hematology given thrombosis but low plts and bleeding, additionally reconsult urology given ongoing hematuria in setting of his coliculi and will c/s GI. 11/09/242125 <Electronically signed by Kathie Lemos MD> Cosigner Signature (if applicable): CC: ~ Signed [facility] Work Phone: 1(682) 298-534804-08-2025 Progress note Author Kathie Lemos [facility] Note Date/Time November 09, 2024 6:54 pm [facility] Medical Records Department [address] [place] [address] Progress Note - Hospitalist 11/09/24 1850 MR#: [id number] Acct: [id number] Name: FRANKLIN ARCHULETA Rep #:[id number] : 1965 59 From: Kathie Lemos MD PCP: Care Physician,No Primary Status :ADM IN Location: [place] [address] Reason for Visit Reason for Visit: Diagnoses Enterocolitis due to Clostridium difficile, not specified as recurrent (10/29/24) Sepsis, unspecified organism (10/29/24) Elevated white blood cell count, unspecified (10/29/24) Obesity, class 1 (10/29/24) Hypo-osmolality and hyponatremia (10/29/24) Acidosis, unspecified (10/29/24) Other chronic pain (10/29/24) Hypotension, unspecified (10/29/24) Dorsalgia, unspecified (10/29/24) Urinary tract infection, site not specified (10/29/24) Unspecified abdominal pain (10/29/24) Diarrhea, unspecified (10/29/24) Severe sepsis with septic shock (10/29/24) Personal history of urinary calculi (10/29/24) Subjective Subjective Patient initially this morning laying there resting comfortably, later in the day did report some abdominal discomfort and distention, no nausea or vomiting, has not yet had bowel movement today per nurse Objective Data Objective Data Vital Signs: Vital Signs Temp Pulse Resp BP Pulse Ox O2 Del Method 98.3 F 117 H 18 109/66 97 Room Air 11/09/24 14:00 11/09/24 14:00 11/09/24 14:00 11/09/24 14:00 11/09/24 14:00 11/09/24 15:00 Oxygen Delivery Method Room Air Weight: 112.6 kg Body Mass Index (BMI) 36.6 Intake & Output: Intake and Output for Last 24 Hours 11/07/24 11/08/24 11/09/24 23:59 23:59 23:59 Intake Total 200 / 200 1520 / 1520 1690 / 1690 Output Total 500 / 500 500 / 800 1150 / 1150 Balance -300 / -300 1020 / 720 540 / 540 Lab / Micro Data 11/09/24 05:29 11/09/24 05:29 Labs: Laboratory Results - last 24 hr 11/08/24 19:30: Lactic Acid 3.6 H* 11/08/24 21:27: POC Glucose 327 H 11/08/24 22:30: Lactic Acid 3.1 H* 11/09/24 05:29: WBC 15.9 H, RBC 3.26 L, Hgb 10.4 L, Hct 30.6 L, MCV 93.9, MCH 31.9, MCHC 34.0, RDW Std Deviation 62.9 H, RDW Coeff of Francis 18.1 H, Plt Count 42L*, MPV 11.7, Immature Gran % (Auto) 1.000 H, Neut % (Auto) 79.1 H, Lymph % (Auto) 8.2 L, [place] % (Auto) 8.1, Eos % (Auto) 3.0, Baso % (Auto) 0.6, Absolute Neuts (auto) 12.6 H, Absolute Lymphs (auto) 1.30, Nucleated RBC % 0, Differential Comment SCANNED, Diff Path Review N/A, Platelet Estimate MKD DEC, PT 31.1 H, INR 2.9, Sodium 125 L, Potassium 3.7, Chloride 102, Carbon Dioxide 12.2 L, Anion Gap 10, BUN 19, Creatinine 1.13, Estim Creat Clear Calc 88.15, EstGFR (MDRD) Non-Af 75, BUN/Creatinine Ratio 16.6, Glucose 284 H, Lactic Acid 2.4 H*, Calcium 8.8, Ammonia 104.0 H 11/09/24 06:37: POC Glucose 283 H 11/09/24 11:52: POC Glucose 392 H 11/09/24 16:35: POC Glucose 250 H Micro: Microbiology 10/29/24 01:00 Blood Culture (Wb) - Anticubital Left Blood Culture - Final No growth in 5 days. 10/29/24 00:32 Blood Culture (Wb) - Right Wrist Blood Culture - Final No growth in 5 days. 10/30/24 12:31 Stool Ova and Parasites - Final 10/29/24 02:01 Urine, Clean Catch Urine Culture - Final Culture exhibits no growth. 10/30/24 06:46 Stool Stool Lactoferrin - Final 10/30/24 06:46 Stool Enteric Bacteriology - Final 10/30/24 06:46 Stool C. difficile GDH Antigen & Toxins - Final Toxigenic C. difficile 10/30/24 06:46 Stool Clostridioides difficile (PCR) - Final Radiography Diagnostic Testing: Radiology Impression KUB X-Ray 11/09/24 17:15 IMPRESSION: Marked distention of the stomach with interval NG tube removal. Reading Location: [facility] Rhythm Strip Rhythm Strip: Sinus Rhythm Rate: 83 Ectopy: None Physical Exam Narrative General: Alert, oriented, no apparent distress HEENT: Atraumatic, normocephalic Eyes: Anicteric, normal conjunctiva, extraocular movements grossly intact Neck: Supple Respiratory: Clear to auscultation bilaterally, normal respiratory effort Cardiovascular: Regular rate and rhythm GI: Not tense, no significant tenderness on initial exam without rebound, guarding, rigidity Extremities: No edema Musculoskeletal: Moving all extremities Neuro: No overt focal neurological deficits Skin: No rashes appreciated, does appear to very tanned skin Psych: Cooperative Assessment & Plan Assessment/Plan (1) Sepsis: QUALIFIERS: Sepsis type: sepsis due to unspecified organism Sepsis acute organ dysfunction status: with acute organ dysfunction Severe sepsis acute organ dysfunction type: unspecified Severe sepsis shock status: with septic shock Qualified Code(s): A41.9 - Sepsis, unspecified organism; R65.21 - Severe sepsis with septic shock PLAN: Plan # Sepsis secondary to C. difficile colitis present on admission - Patient found to have C. difficile colitis - On p.o. vancomycin and IV metronidazole - White blood cell count is slowly downtrending - Patient has persistent diarrhea however clinical picture is not clear as he isalso on the lactulose to promote bowel movements due to his hepatic encephalopathy - Patient was evaluated by GI during this admission and zinplava on discharge from the hospital was recommended if at all possible for 7 days -11/09: Patient on vancomycin and metronidazole, has not had bowel movement yet today # Epigastric pain - Patient does have Protonix twice daily on home med list, will resume this - Did endorse that symptoms improved some with Maalox earlier - Does not sound cardiac in nature especially given patient is uncomfortable with palpation of epigastric region - Had a bout of nausea but is not presently feeling nauseous - Continue PPI - Will check lipase, repeat basic labs, check lactic acid - Clinically abdomen is soft without rebound, guarding, rigidity or concern for acute abdomen at this time - Does have a little bit of sinus tachycardia, is no longer hypotensive, will decrease midodrine and if patient tolerates this can likely discontinue this tomorrow - Suspect given patient's reports of poor p.o. intake with his diarrhea that he may be somewhat volume depleted -11/09: Patient pain seemed to improve with Maalox and PPI however did have returnof this pain so KUB obtained which showed distended stomach, CT ordered for better characterization to assist with management. Additionally patient reportshe gets routine paracenteses and missed his last one as he is here and feels that he needs paracentesis so this was ordered # Acute hepatic encephalopathy - Patient has known NAFLD with cirrhosis - Found to have severe hyperammonemia and required NG tube placement - Is receiving lactulose and sensorium improved - Continue rifaximin, also noted to be thrombocytopenic however this appears chronic -11/09: Increased patient's lactulose as he did not have a bowel movement today, has elevated ammonia which is chronic but mental status is similar to yesterday without decreased level of consciousness #Type 2 diabetes mellitus -Glucose checks and sliding scale insulin - Changed glucose checks to ACHS - Increase sliding scale factor - Will also schedule insulin -11/09: Remains hyperglycemic, will increase insulin # Hyponatremia ? Sodium 126 today, has down trended over the past several days, this is in partfalsely low due to patient's significant hyperglycemia -Do suspect that there is some component of volume depletion given patient's report of poor p.o. intake with multiple bowel movements and he did have a slight increase in BUN and creatinine - Will give IV fluids, if this does not improve may need to pursue further workup -11/09: Sodium similar today, received IV fluids, repeat in the a.m., has not further dropped, again somewhat falsely low due to elevated glucose # Known staghorn colliculi with hematuria - Patient has stent in place in the left kidney below his staghorn colliculi, CAT scan did not show any hydronephrosis, patient was evaluated by urology for possible nephrostomy tube placement however it was not felt that this was necessary at the time of consultation and it was recommended to treat patient's C. difficile - Patient had urine culture during this admission which was negative -11/09: Continue to monitor urine color and output #DVT ppx: SCDs Kathie Lemos MD Time spent in the patient's overall evaluation, decision-making process, review of diagnostic data, adjustment of management, discussion with other providers, nursing and ancillary staff involved in patient's care documentation, 42 Minutes Charges/Coding Visit Charges Inpatient E&M: 46895 Subs Hosp L2 11/09/24 1030 <Electronically signed by Kathie Lemos MD> Cosigner Signature (if applicable): CC: ~ Signed [facility] Work Phone: 1(150) 506-326504-08-2025 Radiology Diagnostic study [facility]04-08-2025 Radiology Diagnostic study [facility]04-07-2025 Progress note Author Kathie Lemos [facility] Note Date/Time November 08, 2024 6:26 pm [facility] Medical Records Department [address] [place] [address] Progress Note - Hospitalist 11/08/24 1441 MR#: [id number] Acct: [id number] Name: GEREMIASFRANKLINKarma CHAPA Rep #:[id number] : 1965 59 From: Kathie Lemos MD PCP: Care Physician,No Primary Status :ADM IN Location: [place] [address] Reason for Visit Reason for Visit: Diagnoses Enterocolitis due to Clostridium difficile, not specified as recurrent (10/29/24) Sepsis, unspecified organism (10/29/24) Elevated white blood cell count, unspecified (10/29/24) Obesity, class 1 (10/29/24) Hypo-osmolality and hyponatremia (10/29/24) Acidosis, unspecified (10/29/24) Other chronic pain (10/29/24) Hypotension, unspecified (10/29/24) Dorsalgia, unspecified (10/29/24) Urinary tract infection, site not specified (10/29/24) Unspecified abdominal pain (10/29/24) Diarrhea, unspecified (10/29/24) Severe sepsis with septic shock (10/29/24) Personal history of urinary calculi (10/29/24) Subjective Subjective Patient reports that he had some nausea earlier and has been having lower chest/upper abdominal pain, does report that he thinks he is supposed to be on Protonix but is not sure if he is getting that now, he is unsure if this feels like reflux/heartburn or not, still having bowel movements, at times exam not feeling nauseous, denies any lower abdominal pain. Reports that the pain in upper abdomen/lower chest started earlier when he got up and moved to the chair and came back, has a hard time describing it reports it has been somewhat persistent, did get some Maalox and notes that this was somewhat helpful Objective Data Objective Data Vital Signs: Vital Signs Temp Pulse Resp BP Pulse Ox O2 Del Method 98.0 F 114 H 16 126/81 H 95 Room Air 11/08/24 09:10 11/08/24 09:10 11/08/24 09:10 11/08/24 09:10 11/08/24 09:10 11/08/24 09:10 Oxygen Delivery Method Room Air Weight: 112.9 kg Body Mass Index (BMI) 36.7 Intake & Output: Intake and Output for Last 24 Hours 11/06/24 11/07/24 11/08/24 23:59 23:59 23:59 Intake Total 300 / 300 200 / 200 460 / 460 Output Total 500 / 500 250 / 250 Balance 300 / 150 -300 / -300 210 / 210 Lab / Micro Data 11/08/24 05:47 11/08/24 05:47 Labs: Laboratory Results - last 24 hr 11/04/24 05:09: Diff Path Review N/A 11/07/24 17:08: POC Glucose 281 H 11/08/24 00:31: POC Glucose 289 H 11/08/24 05:47: WBC 17.9 H, RBC 3.37 L, Hgb 10.9 L, Hct 31.2 L, MCV 92.6, MCH 32.3 H, MCHC 34.9, RDW Std Deviation 61.2 H, RDW Coeff of Francis 17.9 H, Plt Count 45 L*, MPV 12.0, Diff Path Review December, Sodium 126 L, Potassium 3.6, Chloride 102, Carbon Dioxide 13.4 L, Anion Gap 11, BUN 20 H, Creatinine 1.26 H, Estim Creat Clear Calc 79.16, Est GFR (MDRD) Non-Af 66, BUN/Creatinine Ratio 15.9, Glucose 349 H, Calcium 9.1 11/08/24 05:59: POC Glucose 297 H 11/08/24 12:54: POC Glucose 322 H Micro: Microbiology 10/29/24 01:00 Blood Culture (Wb) - Anticubital Left Blood Culture - Final No growth in 5 days. 10/29/24 00:32 Blood Culture (Wb) - Right Wrist Blood Culture - Final No growth in 5 days. 10/30/24 12:31 Stool Ova and Parasites - Final 10/29/24 02:01 Urine, Clean Catch Urine Culture - Final Culture exhibits no growth. 10/30/24 06:46 Stool Stool Lactoferrin - Final 10/30/24 06:46 Stool Enteric Bacteriology - Final 10/30/24 06:46 Stool C. difficile GDH Antigen & Toxins - Final Toxigenic C. difficile 10/30/24 06:46 Stool Clostridioides difficile (PCR) - Final Rhythm Strip Rhythm Strip: Sinus Rhythm Rate: 83 Ectopy: None Physical Exam Narrative General: Alert, answers questions appropriately though somewhat poor historian HEENT: Atraumatic Eyes: Anicteric, normal conjunctiva, extraocular movements grossly intact Neck: Supple Respiratory: No overt wheezes or rhonchi, normal respiratory effort Cardiovascular: Low-grade sinus tachycardia GI: Soft, nontender in the lower quadrants but does have some epigastric pain with deep palpation without any appreciated rebound, guarding, rigidity Extremities: 1+ lower extremity edema which is not new for patient Musculoskeletal: Moving all extremities Neuro: No overt focal neurological deficits Skin: No rashes appreciated Psych: Cooperative Assessment & Plan Assessment/Plan (1) Sepsis: QUALIFIERS: Sepsis type: sepsis due to unspecified organism Sepsis acute organ dysfunction status: with acute organ dysfunction Severe sepsis acute organ dysfunction type: unspecified Severe sepsis shock status: with septic shock Qualified Code(s): A41.9 - Sepsis, unspecified organism; R65.21 - Severe sepsis with septic shock PLAN: Plan # Sepsis secondary to C. difficile colitis present on admission - Patient found to have C. difficile colitis - On p.o. vancomycin and IV metronidazole - White blood cell count is slowly downtrending - Patient has persistent diarrhea however clinical picture is not clear as he isalso on the lactulose to promote bowel movements due to his hepatic encephalopathy - Patient was evaluated by GI during this admission and zinplava on discharge from the hospital was recommended if at all possible for 7 days # Epigastric pain - Patient does have Protonix twice daily on home med list, will resume this - Did endorse that symptoms improved some with Maalox earlier - Does not sound cardiac in nature especially given patient is uncomfortable with palpation of epigastric region - Had a bout of nausea but is not presently feeling nauseous - Continue PPI - Will check lipase, repeat basic labs, check lactic acid - Clinically abdomen is soft without rebound, guarding, rigidity or concern for acute abdomen at this time - Does have a little bit of sinus tachycardia, is no longer hypotensive, will decrease midodrine and if patient tolerates this can likely discontinue this tomorrow - Suspect given patient's reports of poor p.o. intake with his diarrhea that he may be somewhat volume depleted # Acute hepatic encephalopathy - Patient has known NAFLD with cirrhosis - Found to have severe hyperammonemia and required NG tube placement - Is receiving lactulose and sensorium improved - Continue rifaximin, also noted to be thrombocytopenic however this appears chronic #Type 2 diabetes mellitus -Glucose checks and sliding scale insulin - Changed glucose checks to ACHS - Increase sliding scale factor - Will also schedule insulin # Hyponatremia ? Sodium 126 today, has down trended over the past several days, this is in partfalsely low due to patient's significant hyperglycemia -Do suspect that there is some component of volume depletion given patient's report of poor p.o. intake with multiple bowel movements and he did have a slight increase in BUN and creatinine - Will give IV fluids, if this does not improve may need to pursue further workup # Known staghorn colliculi with hematuria - Patient has stent in place in the left kidney below his staghorn colliculi, CAT scan did not show any hydronephrosis, patient was evaluated by urology for possible nephrostomy tube placement however it was not felt that this was necessary at the time of consultation and it was recommended to treat patient's C. difficile - Patient had urine culture during this admission which was negative #DVT ppx: SCDs Kathie Lemos MD Time spent in the patient's overall evaluation, decision-making process, review of diagnostic data, adjustment of management, discussion with other providers, nursing and ancillary staff involved in patient's care documentation, 56 Minutes Charges/Coding Visit Charges Inpatient E&M: 09755 Subs Hosp L3 11/08/24 1503 <Electronically signed by Kathie Lemos MD> Cosigner Signature (if applicable): CC: ~ Signed ADDENDUM by Dr. Kathie Lemos MD on 11/08/24 at 1826 Addendum Discussed with patient's RN, patient's pain went away earlier after the Maalox and he has not had any new or acute complaints since that time per report, lactic acid was somewhat elevated but bicarb has been low for several days and patient does not have a gap so unclear the significance of this, patient is scheduled to get IV fluids however due to patient volume and acuity on the floorI was informed fluids were delayed and are just now getting started, lactic acidrepeat pushed back so this can accurately reflect intervention, pt vitally stable at this time, no acute concerns from pts RN at this time 11/08/24 1826<Electronically signed by Kathie Lemos MD> Cosigner Signature (if applicable): cc: ~* Signed [facility] Work Phone: 1(876) 784-380604-06-2025 Progress note Author Hill Acuña [facility] Note Date/Time November 07, 2024 10:3 8am [facility] Medical Records Department [address] [place] [address] Progress Note - Hospitalist 11/07/24 0913 MR#: [id number] Acct: [id number] Name: FRANKLIN ARCHULETA Rep #:[id number] : 1965 59 From: Hill Acuña MD PCP: Care Physician,No Primary Status :ADM IN Location: [place] [address] Reason for Visit Reason for Visit: Diagnoses Enterocolitis due to Clostridium difficile, not specified as recurrent (10/29/24) Sepsis, unspecified organism (10/29/24) Elevated white blood cell count, unspecified (10/29/24) Obesity, class 1 (10/29/24) Hypo-osmolality and hyponatremia (10/29/24) Acidosis, unspecified (10/29/24) Other chronic pain (10/29/24) Hypotension, unspecified (10/29/24) Dorsalgia, unspecified (10/29/24) Urinary tract infection, site not specified (10/29/24) Unspecified abdominal pain (10/29/24) Diarrhea, unspecified (10/29/24) Severe sepsis with septic shock (10/29/24) Personal history of urinary calculi (10/29/24) Subjective Subjective Patient seen still experiencing loose bowel movement. Patient WBC count also trending down. Objective Data Objective Data Vital Signs: Vital Signs Temp Pulse Resp BP Pulse Ox O2 Del Method 97.5 F L 112 H 16 113/74 95 Room Air 11/07/24 08:21 11/07/24 08:21 11/07/24 08:21 11/07/24 08:21 11/07/24 08:21 11/07/24 08:21 Oxygen Delivery Method Room Air Weight: 110.4 kg Body Mass Index (BMI) 35.9 Intake & Output: Intake and Output for Last 24 Hours 11/05/24 11/06/24 11/07/24 23:59 23:59 23:59 Intake Total 1300 / 1300 300 / 300 Output Total 200 / 200 350 / 350 Balance 1100 / 1100 300 / 150 -350 / -350 Lab / Micro Data 11/07/24 09:45 11/06/24 05:35 Labs: Laboratory Results - last 24 hr 11/06/24 05:35: WBC 20.2 H, RBC 3.55 L, Hgb 11.5 L, Hct 32.6 L, MCV 91.8, MCH 32.4 H, MCHC 35.3, RDW Std Deviation 62.6 H, RDW Coeff of Francis 18.6 H, Plt Count 54 L, MPV 12.6 H, Immature Gran % (Auto) 2.100 H, Neut % (Auto) 81.5 H, Lymph % (Auto) 6.9 L, [place] % (Auto) 6.9, Eos % (Auto) 2.3, Baso % (Auto) 0.3, Absolute Neuts (auto) 16.4 H, Absolute Lymphs (auto) 1.39, Nucleated RBC % 0, Platelet Estimate MOD 11/06/24 12:06: POC Glucose 276 H 11/06/24 17:23: POC Glucose 288 H 11/06/24 23:34: POC Glucose 312 H 11/07/24 05:44: POC Glucose 286 H Micro: Microbiology 10/29/24 01:00 Blood Culture (Wb) - Anticubital Left Blood Culture - Final No growth in 5 days. 10/29/24 00:32 Blood Culture (Wb) - Right Wrist Blood Culture - Final No growth in 5 days. 10/30/24 12:31 Stool Ova and Parasites - Final 10/29/24 02:01 Urine, Clean Catch Urine Culture - Final Culture exhibits no growth. 10/30/24 06:46 Stool Stool Lactoferrin - Final 10/30/24 06:46 Stool Enteric Bacteriology - Final 10/30/24 06:46 Stool C. difficile GDH Antigen & Toxins - Final Toxigenic C. difficile 10/30/24 06:46 Stool Clostridioides difficile (PCR) - Final Rhythm Strip Rhythm Strip: Sinus Rhythm Rate: 83 Ectopy: None Physical Exam Narrative GENERAL: Much more interactive HEENT: Atraumatic; normocephalic EYES; Anicteric, Normal Conjunctiva NECK; supple, normal thyroid, RESPIRATORY: Diminished to auscultation CARDIOVASCULAR: Regular S1 S2, GI: soft, normoactive bowel sounds, : Del Castillo catheter in place with hematuria EXTREMITIES: No edema, no clubbing, MUSCULOSKELETAL: no muscle wasting NEURO: Awake; no lateralizing signs. SKIN: No Rash PSYCH; Flat affect Assessment & Plan Assessment/Plan (1) Sepsis: QUALIFIERS: Sepsis acute organ dysfunction status: with acute organ dysfunction Sepsis type: sepsis due to unspecified organism Severe sepsis acute organ dysfunction type: unspecified Severe sepsis shock status: with septic shock Qualified Code(s): A41.9 - Sepsis, unspecified organism; R65.21 - Severe sepsis with septic shock (2) Acute UTI: PLAN: Plan Patient is a 59-year-old gentleman who presented with abdominal pain with diarrhea as well as back pain. An assessment of sepsis secondary to C. difficile colitis made admitted to a monitored bed for subsequent management 1. Sepsis ? Secondary to C. difficile colitis Patient managed with IV metronidazole as well as p.o. vancomycin via NG tube ?11/02/2024; patient WBC count still remains elevated NG tube discontinued by the patient himself ?11/03/2024; patient diarrhea still persist however this is complicated by the fact that patient is on lactulose for acute hepatic encephalopathy. WBC count however trending up. ? 11/04/2024; patient still has loose bowel movement however patient is on lactulose WBC count continues to rise complicating care ? 11/05/2024; patient WBC count down to 20 1.3K ? 11/06/2024; WBC count remains stable at 20K ?; patient finally responded to treatment with significant improvement inWBC count. He still however has loose bowel movement of note patient is on lactulose for encephalopathy 2. Acute hepatic encephalopathy ? Secondary to nonalcoholic fatty liver disease with cirrhosis. Patient was found to have severe hyperammonemia and NG tube was placed patient did receive lactulose ? 11/02/2024; level of sensorium improving ? 11/05/2024; patient level of sensorium continues to improve despite patient ammonia level being elevated ? 11/06/2024; patient clinical condition continues to improve 3. Acute metabolic encephalopathy ? Due to combination of sepsis hepatic encephalopathy as well as hyponatremia treatment of underlying etiology initiated 4. Cirrhosis of the liver ? Secondary to nonalcoholic fatty liver disease patient was seen in consultationby GI. Patient is on rifaximin continue 5. Hyponatremia ? Resolved 6. Obstructive sleep apnea ? Patient is on CPAP at night consistent use encouraged 7. Diabetes mellitus type II -patient's oral hypoglycemics held. Placed on long acting insulin, Accu-Cheks a.c. and at bedtime and covered with sliding scale insulin 8. GERD ? Patient is on PPI 9. Class I obesity with BMI of 32 ? Complicating care weight loss advised 10. Hypokalemia -Corrected per protocol ? 11/02/2024 potassium remains low additional replacement given 11. Chronic thrombocytopenia ? Secondary to chronic liver disease monitoring 12. Anemia ? Secondary to chronic disorder monitoring H&H and transfuse if patient becomes symptomatic or hemoglobin falls below 7 13. Nephrolithiasis with hematuria ? Patient is known to have a staghorn calculus and has a stent in place. Was seen in consultation by Dr Rascon with urology's notes and recommendations reviewed. Patient has Del Castillo catheter in place hematuria persist 14. DVT prophylaxis ? Avoid any use of chemoprophylaxis given patient low platelet count as well as hematuria 15. Hypophosphatemia ? 11/02/2024 corrected per protocol 16. Physical deconditioning ? Requested for PT OT eval and aids social worker to assist with discharge planning ? 11/05/2024; plan is for patient to be discharged home when medically stable. Patient does not qualify for home health as he currently does not have a primarycare physician he has been given a referral to [facility] 1 Time spent in the patient's overall evaluation,decision-making process, review of diagnostic data, adjustment of management, discussion with other providers, nursing nursing and ancillary staff involved in patient's care documentation, 36 Minutes Charges/Coding Visit Charges Inpatient E&M: 89832 Subs Hosp L2 11/07/24 1038 <Electronically signed by Hill Acuña MD> Cosigner Signature (if applicable): CC: ~ Signed [facility] Work Phone: [phone]) 875-969104-05-2025 Progress note Author Hill Acuña [facility] Note Date/Time November 06, 2024 10:5 7am [facility] Medical Records Department [address] [place] [address] Progress Note - Hospitalist 11/06/24 0756 MR#: [id number] Acct: [id number] Name: FRANKLIN ARCHULETA Rep #:[id number] : 1965 59 From: Hill Acuña MD PCP: Care Physician,No Primary Status :ADM IN Location: [place] [address] Reason for Visit Reason for Visit: Diagnoses Enterocolitis due to Clostridium difficile, not specified as recurrent (10/29/24) Sepsis, unspecified organism (10/29/24) Elevated white blood cell count, unspecified (10/29/24) Obesity, class 1 (10/29/24) Hypo-osmolality and hyponatremia (10/29/24) Acidosis, unspecified (10/29/24) Other chronic pain (10/29/24) Hypotension, unspecified (10/29/24) Dorsalgia, unspecified (10/29/24) Urinary tract infection, site not specified (10/29/24) Unspecified abdominal pain (10/29/24) Diarrhea, unspecified (10/29/24) Severe sepsis with septic shock (10/29/24) Personal history of urinary calculi (10/29/24) Subjective Subjective Patient seen continues to improve clinically. Do anticipate discharge in 1 to 2days if patient continues on the current trajectory Objective Data Objective Data Vital Signs: Vital Signs Temp Pulse Resp BP Pulse Ox O2 Del Method 98.2 F 109 H 18 122/80 H 95 Room Air 11/06/24 03:35 11/06/24 03:35 11/06/24 03:35 11/06/24 03:35 11/06/24 03:35 11/06/24 03:35 Oxygen Delivery Method Room Air Weight: 107.5 kg Body Mass Index (BMI) 34.9 Intake & Output: Intake and Output for Last 24 Hours 11/04/24 11/05/24 11/06/24 23:59 23:59 23:59 Intake Total 800 / 800 1300 / 1300 100 / 100 Output Total 1550 / 1550 200 / 200 Balance -750 / -750 1100 / 1100 100 / 100 Lab / Micro Data 11/06/24 05:35 11/06/24 05:35 Labs: Laboratory Results - last 24 hr 11/02/24 06:52: Diff Path Review N/A 11/05/24 06:10: Ammonia 99.8 H 11/05/24 12:46: POC Glucose 253 H 11/05/24 17:20: POC Glucose 264 H 11/05/24 22:36: POC Glucose 292 H 11/06/24 05:35: Sodium 129 L, Potassium 3.3, Chloride 103, Carbon Dioxide 14.9 L, Anion Gap 11, BUN 19, Creatinine 1.04, Estim Creat Clear Calc 93.54, Est GFR (MDRD) Non-Af 83, BUN/Creatinine Ratio 17.8, Glucose 311 H, Calcium 9.8, Total Bilirubin 2.22 H, AST 32, ALT 29, Alkaline Phosphatase 244 H, Ammonia 93.5 H, Total Protein 5.4 L, Albumin 2.4 L, Globulin 3.1, Albumin/Globulin Ratio 0.8 L 11/06/24 05:50: POC Glucose 278 H Micro: Microbiology 10/29/24 01:00 Blood Culture (Wb) - Anticubital Left Blood Culture - Final No growth in 5 days. 10/29/24 00:32 Blood Culture (Wb) - Right Wrist Blood Culture - Final No growth in 5 days. 10/30/24 12:31 Stool Ova and Parasites - Final 10/29/24 02:01 Urine, Clean Catch Urine Culture - Final Culture exhibits no growth. 10/30/24 06:46 Stool Stool Lactoferrin - Final 10/30/24 06:46 Stool Enteric Bacteriology - Final 10/30/24 06:46 Stool C. difficile GDH Antigen & Toxins - Final Toxigenic C. difficile 10/30/24 06:46 Stool Clostridioides difficile (PCR) - Final Rhythm Strip Rhythm Strip: Sinus Rhythm Rate: 83 Ectopy: None Physical Exam Narrative GENERAL: Much more interactive HEENT: Atraumatic; normocephalic EYES; Anicteric, Normal Conjunctiva NECK; supple, normal thyroid, RESPIRATORY: Diminished to auscultation CARDIOVASCULAR: Regular S1 S2, GI: soft, normoactive bowel sounds, : Del Castillo catheter in place with hematuria EXTREMITIES: No edema, no clubbing, MUSCULOSKELETAL: no muscle wasting NEURO: Awake; no lateralizing signs. SKIN: No Rash PSYCH; Flat affect Assessment & Plan Assessment/Plan (1) Sepsis: QUALIFIERS: Sepsis acute organ dysfunction status: with acute organ dysfunction Sepsis type: sepsis due to unspecified organism Severe sepsis acute organ dysfunction type: unspecified Severe sepsis shock status: with septic shock Qualified Code(s): A41.9 - Sepsis, unspecified organism; R65.21 - Severe sepsis with septic shock (2) Acute UTI: PLAN: Plan Patient is a 59-year-old gentleman who presented with abdominal pain with diarrhea as well as back pain. An assessment of sepsis secondary to C. difficile colitis made admitted to a monitored bed for subsequent management 1. Sepsis ? Secondary to C. difficile colitis Patient managed with IV metronidazole as well as p.o. vancomycin via NG tube ?11/02/2024; patient WBC count still remains elevated NG tube discontinued by the patient himself ?11/03/2024; patient diarrhea still persist however this is complicated by the fact that patient is on lactulose for acute hepatic encephalopathy. WBC count however trending up. ? 11/04/2024; patient still has loose bowel movement however patient is on lactulose WBC count continues to rise complicating care ? 11/05/2024; patient WBC count down to 20 1.3K ? 11/06/2024; WBC count remains stable at 20K 2. Acute hepatic encephalopathy ? Secondary to nonalcoholic fatty liver disease with cirrhosis. Patient was found to have severe hyperammonemia and NG tube was placed patient did receive lactulose ? 11/02/2024; level of sensorium improving ? 11/05/2024; patient level of sensorium continues to improve despite patient ammonia level being elevated ? 11/06/2024; patient clinical condition continues to improve 3. Acute metabolic encephalopathy ? Due to combination of sepsis hepatic encephalopathy as well as hyponatremia treatment of underlying etiology initiated 4. Cirrhosis of the liver ? Secondary to nonalcoholic fatty liver disease patient was seen in consultationby GI. Patient is on rifaximin continue 5. Hyponatremia ? Resolved 6. Obstructive sleep apnea ? Patient is on CPAP at night consistent use encouraged 7. Diabetes mellitus type II -patient's oral hypoglycemics held. Placed on long acting insulin, Accu-Cheks a.c. and at bedtime and covered with sliding scale insulin 8. GERD ? Patient is on PPI 9. Class I obesity with BMI of 32 ? Complicating care weight loss advised 10. Hypokalemia -Corrected per protocol ? 11/02/2024 potassium remains low additional replacement given 11. Chronic thrombocytopenia ? Secondary to chronic liver disease monitoring 12. Anemia ? Secondary to chronic disorder monitoring H&H and transfuse if patient becomes symptomatic or hemoglobin falls below 7 13. Nephrolithiasis with hematuria ? Patient is known to have a staghorn calculus and has a stent in place. Was seen in consultation by Dr Rascon with urology's notes and recommendations reviewed. Patient has Del Castillo catheter in place hematuria persist 14. DVT prophylaxis ? Avoid any use of chemoprophylaxis given patient low platelet count as well as hematuria 15. Hypophosphatemia ? 11/02/2024 corrected per protocol 16. Physical deconditioning ? Requested for PT OT eval and aids social worker to assist with discharge planning ? 11/05/2024; plan is for patient to be discharged home when medically stable. Patient does not qualify for home health as he currently does not have a primarycare physician he has been given a referral to [facility] Time spent in the patient's overall evaluation,decision-making process, review of diagnostic data, adjustment of management, discussion with other providers, nursing nursing and ancillary staff involved in patient's care documentation, 36 Minutes Charges/Coding Visit Charges Inpatient E&M: 05882 Subs Hosp L2 11/06/24 1057 <Electronically signed by Hill Acuña MD> Cosigner Signature (if applicable): CC: ~ Signed [facility] Work Phone: [phone]) 171-545404-04-2025 Progress [facility] Note Date/Time November 05, 2024 9:26 am [facility] Medical Records Department [address] [place] [id number] Progress Note - Hospitalist 11/05/24 0924 MR#: [id number] Acct: [id number] Name: FRANKLIN ARCHULETA Rep #:[id number] : 1965 59 From: Hill Acuña MD PCP: Care Physician,No Primary Status :ADM IN Location: [place] [address] Reason for Visit Reason for Visit: Diagnoses Enterocolitis due to Clostridium difficile, not specified as recurrent (10/29/24) Sepsis, unspecified organism (10/29/24) Elevated white blood cell count, unspecified (10/29/24) Obesity, class 1 (10/29/24) Hypo-osmolality and hyponatremia (10/29/24) Acidosis, unspecified (10/29/24) Other chronic pain (10/29/24) Hypotension, unspecified (10/29/24) Dorsalgia, unspecified (10/29/24) Urinary tract infection, site not specified (10/29/24) Unspecified abdominal pain (10/29/24) Diarrhea, unspecified (10/29/24) Severe sepsis with septic shock (10/29/24) Personal history of urinary calculi (10/29/24) Subjective Subjective Patient seen level of sensorium continues to improve. WBC count down to 21K. Patient still has intermittent loose bowel movement. Plan is to increase activity as tolerated Objective Data Objective Data Vital Signs: Vital Signs Temp Pulse Resp BP Pulse Ox O2 Del Method 98.3 F 120 H 14 119/73 96 Room Air 11/05/24 07:53 11/05/24 07:53 11/05/24 07:53 11/05/24 07:53 11/05/24 07:53 11/05/24 07:53 Oxygen Delivery Method Room Air Weight: 108.1 kg Body Mass Index (BMI) 35.2 Intake & Output: Intake and Output for Last 24 Hours 11/03/24 11/04/24 11/05/24 23:59 23:59 23:59 Intake Total 1590 / 1590 800 / 800 Output Total 600 / 600 1550 / 1550 125 / 125 Balance 990 / 990 -750 / -750 -125 / -125 Lab / Micro Data 11/05/24 06:10 11/05/24 06:10 Labs: Laboratory Results - last 24 hr 11/02/24 06:52: Diff Path Review N/A 11/04/24 11:36: POC Glucose 243 H 11/04/24 17:01: POC Glucose 253 H 11/04/24 23:52: POC Glucose 269 H 11/05/24 06:10: WBC 21.3 H, RBC 3.58 L, Hgb 11.3 L, Hct 32.5 L, MCV 90.8, MCH 31.6, MCHC 34.8, RDW Std Deviation 60.7 H, RDW Coeff of Francis 18.6 H, Plt Count 48L*, MPV 11.0, Immature Gran % (Auto) 2.700 H, Neut % (Auto) 81.0 H, Lymph % (Auto) 6.7 L, [place] % (Auto) 7.1, Eos % (Auto) 2.3, Baso % (Auto) 0.2, Absolute Neuts (auto) 17.3 H, Absolute Lymphs (auto) 1.44, Nucleated RBC % 0, Platelet Estimate MKD DEC, Polychromasia 1+, Anisocytosis 1+, Sodium 129 L, Potassium 3.5, Chloride 105, Carbon Dioxide 14.5 L, Anion Gap 10, BUN 18, Creatinine 1.02,Estim Creat Clear Calc 95.64, Est GFR (MDRD) Non-Af 85, BUN/Creatinine Ratio 17.3, Glucose 287 H, Calcium 9.8, Total Bilirubin 2.17 H, AST 36, ALT 31, Alkaline Phosphatase 237 H, Ammonia 99.8 H, Total Protein 5.6 L, Albumin 2.4 L, Globulin 3.2, Albumin/Globulin Ratio 0.7 L 11/05/24 06:52: POC Glucose 245 H Micro: Microbiology 10/29/24 01:00 Blood Culture (Wb) - Anticubital Left Blood Culture - Final No growth in 5 days. 10/29/24 00:32 Blood Culture (Wb) - Right Wrist Blood Culture - Final No growth in 5 days. 10/30/24 12:31 Stool Ova and Parasites - Final 10/29/24 02:01 Urine, Clean Catch Urine Culture - Final Culture exhibits no growth. 10/30/24 06:46 Stool Stool Lactoferrin - Final 10/30/24 06:46 Stool Enteric Bacteriology - Final 10/30/24 06:46 Stool C. difficile GDH Antigen & Toxins - Final Toxigenic C. difficile 10/30/24 06:46 Stool Clostridioides difficile (PCR) - Final Rhythm Strip Rhythm Strip: Sinus Rhythm Rate: 83 Ectopy: None Physical Exam Narrative GENERAL: Much more interactive HEENT: Atraumatic; normocephalic EYES; Anicteric, Normal Conjunctiva NECK; supple, normal thyroid, RESPIRATORY: Diminished to auscultation CARDIOVASCULAR: Regular S1 S2, GI: soft, normoactive bowel sounds, : Del Castillo catheter in place with hematuria EXTREMITIES: No edema, no clubbing, MUSCULOSKELETAL: no muscle wasting NEURO: Awake; no lateralizing signs. SKIN: No Rash PSYCH; Flat affect Assessment & Plan Assessment/Plan (1) Sepsis: QUALIFIERS: Sepsis type: sepsis due to unspecified organism Sepsis acute organ dysfunction status: with acute organ dysfunction Severe sepsis acute organ dysfunction type: unspecified Severe sepsis shock status: with septic shock Qualified Code(s): A41.9 - Sepsis, unspecified organism; R65.21 - Severe sepsis with septic shock (2) Acute UTI: PLAN: Plan Patient is a 59-year-old gentleman who presented with abdominal pain with diarrhea as well as back pain. An assessment of sepsis secondary to C. difficile colitis made admitted to a monitored bed for subsequent management 1. Sepsis ? Secondary to C. difficile colitis Patient managed with IV metronidazole as well as p.o. vancomycin via NG tube ?11/02/2024; patient WBC count still remains elevated NG tube discontinued by the patient himself ?11/03/2024; patient diarrhea still persist however this is complicated by the fact that patient is on lactulose for acute hepatic encephalopathy. WBC count however trending up. ? 11/04/2024; patient still has loose bowel movement however patient is on lactulose WBC count continues to rise complicating care ? 11/05/2024; patient WBC count down to 20 1.3K 2. Acute hepatic encephalopathy ? Secondary to nonalcoholic fatty liver disease with cirrhosis. Patient was found to have severe hyperammonemia and NG tube was placed patient did receive lactulose ? 11/02/2024; level of sensorium improving ? 11/05/2024; patient level of sensorium continues to improve despite patient ammonia level being elevated 3. Acute metabolic encephalopathy ? Due to combination of sepsis hepatic encephalopathy as well as hyponatremia treatment of underlying etiology initiated 4. Cirrhosis of the liver ? Secondary to nonalcoholic fatty liver disease patient was seen in consultationby GI. Patient is on rifaximin continue 5. Hyponatremia ? Resolved 6. Obstructive sleep apnea ? Patient is on CPAP at night consistent use encouraged 7. Diabetes mellitus type II -patient's oral hypoglycemics held. Placed on long acting insulin, Accu-Cheks a.c. and at bedtime and covered with sliding scale insulin 8. GERD ? Patient is on PPI 9. Class I obesity with BMI of 32 ? Complicating care weight loss advised 10. Hypokalemia -Corrected per protocol ? 11/02/2024 potassium remains low additional replacement given 11. Chronic thrombocytopenia ? Secondary to chronic liver disease monitoring 12. Anemia ? Secondary to chronic disorder monitoring H&H and transfuse if patient becomes symptomatic or hemoglobin falls below 7 13. Nephrolithiasis with hematuria ? Patient is known to have a staghorn calculus and has a stent in place. Was seen in consultation by Dr Rascon with urology's notes and recommendations reviewed. Patient has Del Castillo catheter in place hematuria persist 14. DVT prophylaxis ? Avoid any use of chemoprophylaxis given patient low platelet count as well as hematuria 15. Hypophosphatemia ? 11/02/2024 corrected per protocol 16. Physical deconditioning ? Requested for PT OT eval and aids social worker to assist with discharge planning ? 11/05/2024; plan is for patient to be discharged home when medically stable. Patient does not qualify for home health as he currently does not have a primarycare physician he has been given a referral to [facility] Time spent in the patient's overall evaluation,decision-making process, review of diagnostic data, adjustment of management, discussion with other providers, nursing nursing and ancillary staff involved in patient's care documentation, 38 Minutes Charges/Coding Visit Charges Inpatient E&M: 31428 Subs Hosp L2 11/05/24 0972 <Electronically signed by Hill Acuña MD> Cosigner Signature (if applicable): CC: ~ Signed [facility] Work Phone: [phone] 118-131304-03-2025 Progress note Author Hill [facility] Note Date/Time November 04, 2024 11:5 0am [facility] Medical Records Department [address] [place] [address] Progress Note - Hospitalist 11/04/24 1105 MR#: [id number] Acct: [id number] Name: FRANKLIN ARCHULETA Rep #:[id number] : 1965 59 From: Hill Acuña MD PCP: Care Physician,No Primary Status :ADM IN Location: [place] [address] Reason for Visit Reason for Visit: Diagnoses Enterocolitis due to Clostridium difficile, not specified as recurrent (10/29/24) Sepsis, unspecified organism (10/29/24) Elevated white blood cell count, unspecified (10/29/24) Obesity, class 1 (10/29/24) Hypo-osmolality and hyponatremia (10/29/24) Acidosis, unspecified (10/29/24) Other chronic pain (10/29/24) Hypotension, unspecified (10/29/24) Dorsalgia, unspecified (10/29/24) Urinary tract infection, site not specified (10/29/24) Unspecified abdominal pain (10/29/24) Diarrhea, unspecified (10/29/24) Severe sepsis with septic shock (10/29/24) Personal history of urinary calculi (10/29/24) Subjective Subjective Patient seen level of sensorium improving. Patient WBC count however trending up necessitating subsequent stay in the hospital Objective Data Objective Data Vital Signs: Vital Signs Temp Pulse Resp BP Pulse Ox O2 Del Method 97.1 F L 107 H 16 139/93 H 98 Room Air 11/04/24 10:00 11/04/24 10:00 11/04/24 10:00 11/04/24 10:00 11/04/24 10:00 11/04/24 10:00 Oxygen Delivery Method Room Air Weight: 107.7 kg Body Mass Index (BMI) 35.2 Intake & Output: Intake and Output for Last 24 Hours 11/02/24 11/03/24 11/04/24 23:59 23:59 23:59 Intake Total 3406.3333 / 4096.3333 1590 / 1590 600 / 600 Output Total 1150 / 1450 600 / 600 650 / 650 Balance 2256.3333 / 2646.3333 990 / 990 -50 / -50 Lab / Micro Data 11/04/24 05:09 11/04/24 05:09 Labs: Laboratory Results - last 24 hr 11/03/24 10:36: Ammonia 63.5 H 11/03/24 12:33: POC Glucose 282 H 11/03/24 17:29: POC Glucose 239 H 11/04/24 01:00: POC Glucose 295 H 11/04/24 05:09: WBC 28.7 H, RBC 3.64 L, Hgb 11.4 L, Hct 33.5 L, MCV 92.0, MCH 31.3, MCHC 34.0, RDW Std Deviation 62.8 H, RDW Coeff of Francis 19.1 H, Plt Count 61L, MPV 11.4, Immature Gran % (Auto) 4.000 H, Neut % (Auto) 83.6 H, Lymph % (Auto) 4.9 L, [place] % (Auto) 5.9, Eos % (Auto) 1.1, Baso % (Auto) 0.5, Absolute Neuts (auto) 24.0 H, Absolute Lymphs (auto) 1.41, Nucleated RBC % 0, Differential Comment SCANNED, Diff Path Review December, Platelet Estimate SLT DEC, Sodium 131 L, Potassium 3.6, Chloride 107, Carbon Dioxide 12.6 L, Anion Gap12, BUN 20 H, Creatinine 1.05, Estim Creat Clear Calc 92.74, Est GFR (MDRD) Non-Af 82, BUN/Creatinine Ratio 18.6, Glucose 280 H, Calcium 9.5, Total Bilirubin 2.25 H, AST 41 H, ALT 33, Alkaline Phosphatase 230 H, Ammonia 92.2 H, Total Protein 5.4 L, Albumin 2.5 L, Globulin 2.9, Albumin/Globulin Ratio 0.9 11/04/24 05:55: POC Glucose 248 H Micro: Microbiology 10/29/24 01:00 Blood Culture (Wb) - Anticubital Left Blood Culture - Final No growth in 5 days. 10/29/24 00:32 Blood Culture (Wb) - Right Wrist Blood Culture - Final No growth in 5 days. 10/30/24 12:31 Stool Ova and Parasites - Final 10/29/24 02:01 Urine, Clean Catch Urine Culture - Final Culture exhibits no growth. 10/30/24 06:46 Stool Stool Lactoferrin - Final 10/30/24 06:46 Stool Enteric Bacteriology - Final 10/30/24 06:46 Stool C. difficile GDH Antigen & Toxins - Final Toxigenic C. difficile 10/30/24 06:46 Stool Clostridioides difficile (PCR) - Final Rhythm Strip Rhythm Strip: Sinus Rhythm Rate: 83 Ectopy: None Physical Exam Narrative GENERAL: Remains delirious HEENT: Atraumatic; normocephalic EYES; Anicteric, Normal Conjunctiva NECK; supple, normal thyroid, RESPIRATORY: Diminished to auscultation CARDIOVASCULAR: Regular S1 S2, GI: soft, normoactive bowel sounds, : Del Castillo catheter in place with hematuria EXTREMITIES: No edema, no clubbing, MUSCULOSKELETAL: no muscle wasting NEURO: Awake; no lateralizing signs. SKIN: No Rash PSYCH; Flat affect Assessment & Plan Assessment/Plan (1) Sepsis: QUALIFIERS: Sepsis acute organ dysfunction status: with acute organ dysfunction Sepsis type: sepsis due to unspecified organism Severe sepsis acute organ dysfunction type: unspecified Severe sepsis shock status: with septic shock Qualified Code(s): A41.9 - Sepsis, unspecified organism; R65.21 - Severe sepsis with septic shock (2) Acute UTI: PLAN: Plan Patient is a 59-year-old gentleman who presented with abdominal pain with diarrhea as well as back pain. An assessment of sepsis secondary to C. difficile colitis made admitted to a monitored bed for subsequent management 1. Sepsis ? Secondary to C. difficile colitis Patient managed with IV metronidazole as well as p.o. vancomycin via NG tube ?11/02/2024; patient WBC count still remains elevated NG tube discontinued by the patient himself ?11/03/2024; patient diarrhea still persist however this is complicated by the fact that patient is on lactulose for acute hepatic encephalopathy. WBC count however trending up. ? 11/04/2024; patient still has loose bowel movement however patient is on lactulose WBC count continues to rise complicating care 2. Acute hepatic encephalopathy ? Secondary to nonalcoholic fatty liver disease with cirrhosis. Patient was found to have severe hyperammonemia and NG tube was placed patient did receive lactulose ? 11/02/2024; level of sensorium improving 3. Acute metabolic encephalopathy ? Due to combination of sepsis hepatic encephalopathy as well as hyponatremia treatment of underlying etiology initiated 4. Cirrhosis of the liver ? Secondary to nonalcoholic fatty liver disease patient was seen in consultationby GI. Patient is on rifaximin continue 5. Hyponatremia ? Resolved 6. Obstructive sleep apnea ? Patient is on CPAP at night consistent use encouraged 7. Diabetes mellitus type II -patient's oral hypoglycemics held. Placed on long acting insulin, Accu-Cheks a.c. and at bedtime and covered with sliding scale insulin 8. GERD ? Patient is on PPI 9. Class I obesity with BMI of 32 ? Complicating care weight loss advised 10. Hypokalemia -Corrected per protocol ? 11/02/2024 potassium remains low additional replacement given 11. Chronic thrombocytopenia ? Secondary to chronic liver disease monitoring 12. Anemia ? Secondary to chronic disorder monitoring H&H and transfuse if patient becomes symptomatic or hemoglobin falls below 7 13. Nephrolithiasis with hematuria ? Patient is known to have a staghorn calculus and has a stent in place. Was seen in consultation by Dr Rascon with urology's notes and recommendations reviewed. Patient has Del Castillo catheter in place hematuria persist 14. DVT prophylaxis ? Avoid any use of chemoprophylaxis given patient low platelet count as well as hematuria 15. Hypophosphatemia ? 11/02/2024 corrected per protocol 16. Physical deconditioning ? Requested for PT OT eval and aids social worker to assist with discharge planning Time spent in the patient's overall evaluation,decision-making process, review of diagnostic data, adjustment of management, discussion with other providers, nursing nursing and ancillary staff involved in patient's care documentation, 38 Minutes Charges/Coding Visit Charges Inpatient E&M: 55943 Subs Hosp L2 11/04/24 1150 <Electronically signed by Hill Acuña MD> Cosigner Signature (if applicable): CC: ~ Signed [facility] Work Phone: 1(541) 589-495704-03-2025 Progress note Author [facility] Note Date/Time November 04, 2024 6:43 am [facility] Medical Records Department [address] [place] [address] Progress Note - Hospitalist 11/04/24 0642 MR#: [id number] Acct: [id number] Name: FRANKLIN ARCHULETA Rep #:[id number] : 1965 59 From: Maria Guadalupe Shore MD PCP: Care Physician,No Primary Status :ADM IN Location: [place] [address] Hospitalist Note Patient with 15 beat asymptomatic VT. Electrolytes recently checked, mag normal range, K normal range. 11/04/2443 <Electronically signed by Maria Guadalupe Shore MD> Cosigner Signature (if applicable): CC: ~ Signed [facility] Work Phone: 1(441) 896-389504-03-2025 Progress note Author [facility] Note Date/Time November 03, 2024 10:3 8pm [facility] Medical Records Department [address] [place] [address] Progress Note - Hospitalist 11/03/242236 MR#: [id number] Acct: [id number] Name: FRANKLIN ARCHULETA Rep #:[id number] : 1965 59 From: Maria Guadalupe Shore MD PCP: Care Physician,No Primary Status :ADM IN Location: [place] [address] Hospitalist Note Patient with mildly tachycardia through the late afternoon and evening. Will administer 500 cc bolus and reassess. From review of medications not normally onBB therapy. 11/03/242237 <Electronically signed by Maria Guadalupe Shore MD> Cosigner Signature (if applicable): CC: ~ Signed [facility] Work Phone: 1(448) 897-773504-02-2025 Progress note Author Hill Acuña [facility] Note Date/Time November 03, 2024 10:2 7am [facility] Medical Records Department [address] [place] [address] Progress Note - Hospitalist 11/03/24 1025 MR#: [id number] Acct: [id number] Name: FRANKLIN ARCHULETA Rep #:[id number] : 1965 59 From: Hill Acuña MD PCP: Care Physician,No Primary Status :ADM IN Location: [place] [address] Reason for Visit Reason for Visit: Diagnoses Enterocolitis due to Clostridium difficile, not specified as recurrent (10/29/24) Sepsis, unspecified organism (10/29/24) Elevated white blood cell count, unspecified (10/29/24) Obesity, class 1 (10/29/24) Hypo-osmolality and hyponatremia (10/29/24) Acidosis, unspecified (10/29/24) Other chronic pain (10/29/24) Hypotension, unspecified (10/29/24) Dorsalgia, unspecified (10/29/24) Urinary tract infection, site not specified (10/29/24) Unspecified abdominal pain (10/29/24) Diarrhea, unspecified (10/29/24) Severe sepsis with septic shock (10/29/24) Personal history of urinary calculi (10/29/24) Subjective Subjective Patient seen much more interactive compared to previous day. Patient diarrhea however persist WBC count trending up. Objective Data Objective Data Vital Signs: Vital Signs Temp Pulse Resp BP Pulse Ox O2 Del Method 98.2 F 113 H 16 126/86 H 98 Room Air 11/03/24 08:59 11/03/24 08:59 11/03/24 08:59 11/03/24 08:59 11/03/24 08:59 11/03/24 08:59 Oxygen Delivery Method Room Air Weight: 93.4 kg Body Mass Index (BMI) 30.4 Intake & Output: Intake and Output for Last 24 Hours 11/01/24 11/02/24 11/03/24 23:59 23:59 23:59 Intake Total 2696.67 / 2696.67 3406.3333 / 4096.3333 1590 / 1590 Output Total 625 / 1225 1150 / 1450 600 / 600 Balance 2071.67 / 1471.67 2256.3333 / 2646.3333 990 / 990 Lab / Micro Data 11/03/24 05:32 11/03/24 05:32 Labs: Laboratory Results - last 24 hr 11/02/24 12:20: POC Glucose 230 H 11/02/24 17:20: POC Glucose 281 H 11/02/24 23:54: POC Glucose 303 H 11/03/24 05:06: POC Glucose 262 H 11/03/24 05:32: WBC 25.3 H, RBC 4.02 L, Hgb 12.7 L, Hct 38.1 L, MCV 94.8 H, MCH 31.6, MCHC 33.3, RDW Std Deviation 66.2 H, RDW Coeff of Francis 18.9 H, Plt Count 85L, MPV 11.8, Neut % (Auto) Not Reportable, Absolute Neuts (auto) 23.0 H, Absolute Lymphs (auto) 0.50 L, Total Counted 100, Neutrophils % (Manual) 85 H, Band Neutrophils % 6 H, Lymphocytes % (Manual) 2 L, Monocytes % (Manual) 2, Eosinophils % (Manual) 1, Metamyelocytes % 1, Myelocytes % 1 H, Diff Path ReviewMay foll, Platelet Estimate MOD DEC, Polychromasia 1+, Anisocytosis 2+, Sodium 130 L, Potassium 3.7, Chloride 107, Carbon Dioxide 11.0 L, Anion Gap 12, BUN 21 H, Creatinine 1.16, Estim Creat Clear Calc 78.33, Est GFR (MDRD) Non-Af 73, BUN/Creatinine Ratio 17.7, Glucose 288 H, Calcium 9.3, Total Bilirubin 1.86 H, AST 54 H, ALT 34, Alkaline Phosphatase 249 H, Total Protein 5.7 L, Albumin 2.4 L,Globulin 3.3, Albumin/Globulin Ratio 0.7 L Micro: Microbiology 10/29/24 01:00 Blood Culture (Wb) - Anticubital Left Blood Culture - Final No growth in 5 days. 10/29/24 00:32 Blood Culture (Wb) - Right Wrist Blood Culture - Final No growth in 5 days. 10/30/24 12:31 Stool Ova and Parasites - Final 10/29/24 02:01 Urine, Clean Catch Urine Culture - Final Culture exhibits no growth. 10/30/24 06:46 Stool Stool Lactoferrin - Final 10/30/24 06:46 Stool Enteric Bacteriology - Final 10/30/24 06:46 Stool C. difficile GDH Antigen & Toxins - Final Toxigenic C. difficile 10/30/24 06:46 Stool Clostridioides difficile (PCR) - Final Rhythm Strip Rhythm Strip: Sinus Rhythm Rate: 83 Ectopy: None Physical Exam Narrative GENERAL: Remains delirious HEENT: Atraumatic; normocephalic EYES; Anicteric, Normal Conjunctiva NECK; supple, normal thyroid, RESPIRATORY: Diminished to auscultation CARDIOVASCULAR: Regular S1 S2, GI: soft, normoactive bowel sounds, : Del Castillo catheter in place with hematuria EXTREMITIES: No edema, no clubbing, MUSCULOSKELETAL: no muscle wasting NEURO: Awake; no lateralizing signs. SKIN: No Rash PSYCH; Flat affect Assessment & Plan Assessment/Plan (1) Sepsis: QUALIFIERS: Sepsis type: sepsis due to unspecified organism Sepsis acute organ dysfunction status: with acute organ dysfunction Severe sepsis acute organ dysfunction type: unspecified Severe sepsis shock status: with septic shock Qualified Code(s): A41.9 - Sepsis, unspecified organism; R65.21 - Severe sepsis with septic shock (2) Acute UTI: PLAN: Plan Patient is a 59-year-old gentleman who presented with abdominal pain with diarrhea as well as back pain. An assessment of sepsis secondary to C. difficile colitis made admitted to a monitored bed for subsequent management 1. Sepsis ? Secondary to C. difficile colitis Patient managed with IV metronidazole as well as p.o. vancomycin via NG tube ?11/02/2024; patient WBC count still remains elevated NG tube discontinued by the patient himself ? Fall 09/23/2024; patient diarrhea still persist however this is complicated by the fact that patient is on lactulose for acute hepatic encephalopathy. WBC count however trending up. 2. Acute hepatic encephalopathy ? Secondary to nonalcoholic fatty liver disease with cirrhosis. Patient was found to have severe hyperammonemia and NG tube was placed patient did receive lactulose ? 11/02/2024; level of sensorium improving 3. Acute metabolic encephalopathy ? Due to combination of sepsis hepatic encephalopathy as well as hyponatremia treatment of underlying etiology initiated 4. Cirrhosis of the liver ? Secondary to nonalcoholic fatty liver disease patient was seen in consultationby GI. Patient is on rifaximin continue 5. Hyponatremia ? Resolved 6. Obstructive sleep apnea ? Patient is on CPAP at night consistent use encouraged 7. Diabetes mellitus type II -patient's oral hypoglycemics held. Placed on long acting insulin, Accu-Cheks a.c. and at bedtime and covered with sliding scale insulin 8. GERD ? Patient is on PPI 9. Class I obesity with BMI of 32 ? Complicating care weight loss advised 10. Hypokalemia -Corrected per protocol ? 11/02/2024 potassium remains low additional replacement given 11. Chronic thrombocytopenia ? Secondary to chronic liver disease monitoring 12. Anemia ? Secondary to chronic disorder monitoring H&H and transfuse if patient becomes symptomatic or hemoglobin falls below 7 13. Nephrolithiasis with hematuria ? Patient is known to have a staghorn calculus and has a stent in place. Was seen in consultation by Dr Rascon with urology's notes and recommendations reviewed. Patient has Del Castillo catheter in place hematuria persist 14. DVT prophylaxis ? Avoid any use of chemoprophylaxis given patient low platelet count as well as hematuria 15. Hypophosphatemia ? 11/02/2024 corrected per protocol 16. Physical deconditioning ? Requested for PT OT eval and aids social worker to assist with discharge planning Time spent in the patient's overall evaluation,decision-making process, review of diagnostic data, adjustment of management, discussion with other providers, nursing nursing and ancillary staff involved in patient's care documentation, 38 Minutes Charges/Coding Visit Charges Inpatient E&M: 01643 Subs Hosp L2 11/03/24 1027 <Electronically signed by Hill Acuña MD> Cosigner Signature (if applicable): CC: ~ Signed [facility] Work Phone: 1(198) 836-558604-01-2025 Progress note Author Hill Acuña [facility] Note Date/Time November 02, 2024 10:0 5am [facility] Medical Records Department [address] [place] [address] Progress Note - Hospitalist 11/02/24 0804 MR#: [id number] Acct: [id number] Name: GEREMIASFRANKLIN GARCIA Rep #:[id number] : 1965 59 From: Hill Acuña MD PCP: Care Physician,No Primary Status :ADM IN Location: [place] [address] Reason for Visit Reason for Visit: Diagnoses Enterocolitis due to Clostridium difficile, not specified as recurrent (10/29/24) Sepsis, unspecified organism (10/29/24) Elevated white blood cell count, unspecified (10/29/24) Obesity, class 1 (10/29/24) Hypo-osmolality and hyponatremia (10/29/24) Acidosis, unspecified (10/29/24) Other chronic pain (10/29/24) Hypotension, unspecified (10/29/24) Dorsalgia, unspecified (10/29/24) Urinary tract infection, site not specified (10/29/24) Unspecified abdominal pain (10/29/24) Diarrhea, unspecified (10/29/24) Severe sepsis with septic shock (10/29/24) Personal history of urinary calculi (10/29/24) Subjective Subjective Patient is a level of sensorium improving. Diagnostic data reviewed send significant for elevated WBC count and low phosphate levels. Objective Data Objective Data Vital Signs: Vital Signs Temp Pulse Resp BP Pulse Ox O2 Del Method 97.9 F 94 16 125/78 H 100 Room Air 11/02/24 03:15 11/02/24 03:15 11/02/24 03:15 11/02/24 03:15 11/02/24 03:15 11/02/24 03:15 Oxygen Delivery Method Room Air Weight: 93.2 kg Body Mass Index (BMI) 30.4 Intake & Output: Intake and Output for Last 24 Hours 10/31/24 11/01/24 11/02/24 23:59 23:59 23:59 Intake Total 2224.58 / 2224.58 2696.67 / 2696.67 1100 / 1100 Output Total 250 / 500 625 / 1225 900 / 900 Balance 1974.58 / 1724.58 2071.67 / 1471.67 200 / 200 Lab / Micro Data 11/02/24 06:52 11/02/24 06:52 Labs: Laboratory Results - last 24 hr 11/01/24 12:02: POC Glucose 181 H 11/01/24 17:27: POC Glucose 172 H 11/01/24 23:36: POC Glucose 161 H 11/02/24 05:52: POC Glucose 180 H 11/02/24 06:52: WBC 17.9 H, RBC 3.74 L, Hgb 11.7 L, Hct 34.9 L, MCV 93.3, MCH 31.3, MCHC 33.5, RDW Std Deviation 66.1 H, RDW Coeff of Francis 19.2 H, Plt Count 72L, MPV 11.4, Neut % (Auto) Not Reportable, Phosphorus 2.2 L, Magnesium 2.0 Micro: Microbiology 10/29/24 02:01 Urine, Clean Catch Urine Culture - Final Culture exhibits no growth. 10/29/24 01:00 Blood Culture (Wb) - Anticubital Left Blood Culture - Preliminary No growth in 48 hours. 10/29/24 00:32 Blood Culture (Wb) - Right Wrist Blood Culture - Preliminary No growth in 48 hours. 10/30/24 06:46 Stool Stool Lactoferrin - Final 10/30/24 06:46 Stool Enteric Bacteriology - Final 10/30/24 06:46 Stool C. difficile GDH Antigen & Toxins - Final Toxigenic C. difficile 10/30/24 06:46 Stool Clostridioides difficile (PCR) - Final Rhythm Strip Rhythm Strip: Sinus Rhythm Rate: 83 Ectopy: None Physical Exam Narrative GENERAL: Remains delirious HEENT: Atraumatic; normocephalic EYES; Anicteric, Normal Conjunctiva NECK; supple, normal thyroid, RESPIRATORY: Diminished to auscultation CARDIOVASCULAR: Regular S1 S2, GI: soft, normoactive bowel sounds, : Del Castillo catheter in place with hematuria EXTREMITIES: No edema, no clubbing, MUSCULOSKELETAL: no muscle wasting NEURO: Awake; no lateralizing signs. SKIN: No Rash PSYCH; Flat affect Assessment & Plan Assessment/Plan (1) Sepsis: QUALIFIERS: Sepsis acute organ dysfunction status: with acute organ dysfunction Sepsis type: sepsis due to unspecified organism Severe sepsis acute organ dysfunction type: unspecified Severe sepsis shock status: with septic shock Qualified Code(s): A41.9 - Sepsis, unspecified organism; R65.21 - Severe sepsis with septic shock (2) Acute UTI: PLAN: Plan Patient is a 59-year-old gentleman who presented with abdominal pain with diarrhea as well as back pain. An assessment of sepsis secondary to C. difficile colitis made admitted to a monitored bed for subsequent management 1. Sepsis ? Secondary to C. difficile colitis Patient managed with IV metronidazole as well as p.o. vancomycin via NG tube ?11/02/2024; patient WBC count still remains elevated NG tube discontinued by the patient himself 2. Acute hepatic encephalopathy ? Secondary to nonalcoholic fatty liver disease with cirrhosis. Patient was found to have severe hypomagnesemia and NG tube was placed patient did receive lactulose ? 11/02/2024; level of sensorium improving 3. Acute metabolic encephalopathy ? Due to combination of sepsis hepatic encephalopathy as well as hyponatremia treatment of underlying etiology initiated 4. Cirrhosis of the liver ? Secondary to nonalcoholic fatty liver disease patient was seen in consultationby GI. Patient is on rifaximin continue 5. Hyponatremia ? Resolved 6. Obstructive sleep apnea ? Patient is on CPAP at night consistent use encouraged 7. Diabetes mellitus type II -patient's oral hypoglycemics held. Placed on long acting insulin, Accu-Cheks a.c. and at bedtime and covered with sliding scale insulin 8. GERD ? Patient is on PPI 9. Class I obesity with BMI of 32 ? Complicating care weight loss advised 10. Hypokalemia -Corrected per protocol ? 11/02/2024 potassium remains low additional replacement given 11. Chronic thrombocytopenia ? Secondary to chronic liver disease monitoring 12. Anemia ? Secondary to chronic disorder monitoring H&H and transfuse if patient becomes symptomatic or hemoglobin falls below 7 13. Nephrolithiasis with hematuria ? Patient is known to have a staghorn calculus and has a stent in place. Was seen in consultation by Dr Rascon with urology's notes and recommendations reviewed. Patient has Del Castillo catheter in place hematuria persist 14. DVT prophylaxis ? Avoid any use of chemoprophylaxis given patient low platelet count as well as hematuria 15. Hypophosphatemia ? 11/02/2024 corrected per protocol Time spent in the patient's overall evaluation,decision-making process, review of diagnostic data, adjustment of management, discussion with other providers, nursing nursing and ancillary staff involved in patient's care documentation, 50 Minutes Charges/Coding Visit Charges Inpatient E&M: 67149 Subs Hosp L3 11/02/24 1005 <Electronically signed by Hill Acuña MD> Cosigner Signature (if applicable): CC: ~ Signed [facility] Work Phone: 1(104) 179-394003-31-2025 Progress note Author Hill Acuña [facility] Note Date/Time November 01, 2024 11: 41am [facility] Medical Records Department [address] [place] [address] Progress Note - Hospitalist 11/01/24 1128 MR#: [id number] Acct: [id number] Name: FRANKLIN ARCHULETA Rep #:[id number] : 1965 59 From: Hill Acuña MD PCP: Care Physician,No Primary Status :ADM IN Location: [place] [address] Reason for Visit Reason for Visit: Diagnoses Enterocolitis due to Clostridium difficile, not specified as recurrent (10/29/24) Sepsis, unspecified organism (10/29/24) Elevated white blood cell count, unspecified (10/29/24) Obesity, class 1 (10/29/24) Hypo-osmolality and hyponatremia (10/29/24) Acidosis, unspecified (10/29/24) Other chronic pain (10/29/24) Hypotension, unspecified (10/29/24) Dorsalgia, unspecified (10/29/24) Urinary tract infection, site not specified (10/29/24) Unspecified abdominal pain (10/29/24) Diarrhea, unspecified (10/29/24) Severe sepsis with septic shock (10/29/24) Personal history of urinary calculi (10/29/24) Subjective Subjective Patient is a 59-year-old gentleman who presented with abdominal pain with diarrhea as well as back pain. An assessment of sepsis secondary to C. difficile colitis made admitted to a monitored bed for subsequent management Objective Data Objective Data Vital Signs: Vital Signs Temp Pulse Resp BP Pulse Ox O2 Del Method 97.9 F 99 16 141/90 H 97 Room Air 11/01/24 08:40 11/01/24 08:40 11/01/24 08:40 11/01/24 08:40 11/01/24 08:40 11/01/24 08:40 Oxygen Delivery Method Room Air Weight: 98 kg Body Mass Index (BMI) 32.0 Intake & Output: Intake and Output for Last 24 Hours 10/30/24 10/31/24 11/01/24 23:59 23:59 23:59 Intake Total 940 / 940 2224.58 / 2224.58 1755 / 1755 Output Total 1475 / 1475 250 / 500 250 / 250 Balance -535 / -535 1974.58 / 1724.58 1505 / 1505 Lab / Micro Data 11/01/24 04:38 11/01/24 04:38 Labs: Laboratory Results - last 24 hr 10/31/24 11:07: POC Glucose 175 H 10/31/24 17:22: POC Glucose 185 H 11/01/24 00:19: POC Glucose 232 H 11/01/24 04:38: WBC 20.8 H, RBC 4.07 L, Hgb 12.8 L, Hct 37.8 L, MCV 92.9, MCH 31.4, MCHC 33.9, RDW Std Deviation 66.4 H, RDW Coeff of Francis 19.8 H, Plt Count 116 L, MPV 11.9, Neut % (Auto) Not Reportable, Absolute Neuts (auto) 16.9 H, Absolute Lymphs (auto) 1.46, Total Counted 100, Neutrophils % (Manual) 54, Band Neutrophils % 27 H, Lymphocytes % (Manual) 7 L, Monocytes % (Manual) 8, Eosinophils % (Manual) 1, Metamyelocytes % 2 H, Myelocytes % 1 H, Differential Comment SCANNED, Diff Path Review May foll, Platelet Estimate ADEQUATE, Anisocytosis 1+, Sodium 135, Potassium 3.4, Chloride 110 H, Carbon Dioxide 13.0 L, Anion Gap 13, BUN 27 H, Creatinine 1.19, Estim Creat Clear Calc 76.09, Est GFR (MDRD) Non-Af 71, BUN/Creatinine Ratio 22.4 H, Glucose 235 H, Calcium 9.5, Total Bilirubin 2.11 H, AST 39 H, ALT 24, Alkaline Phosphatase 253 H, Total Protein 5.6 L, Albumin 2.6 L, Globulin 3.1, Albumin/Globulin Ratio 0.8 L, Vancomycin Trough 17.7 H 11/01/24 05:57: POC Glucose 209 H Micro: Microbiology 10/29/24 02:01 Urine, Clean Catch Urine Culture - Final Culture exhibits no growth. 10/29/24 01:00 Blood Culture (Wb) - Anticubital Left Blood Culture - Preliminary No growth in 48 hours. 10/29/24 00:32 Blood Culture (Wb) - Right Wrist Blood Culture - Preliminary No growth in 48 hours. 10/30/24 06:46 Stool Stool Lactoferrin - Final 10/30/24 06:46 Stool Enteric Bacteriology - Final 10/30/24 06:46 Stool C. difficile GDH Antigen & Toxins - Final Toxigenic C. difficile 10/30/24 06:46 Stool Clostridioides difficile (PCR) - Final Rhythm Strip Rhythm Strip: Sinus Rhythm Rate: 83 Ectopy: None Physical Exam Narrative GENERAL: Remains delirious HEENT: Atraumatic; normocephalic EYES; Anicteric, Normal Conjunctiva NECK; supple, normal thyroid, RESPIRATORY: Diminished to auscultation CARDIOVASCULAR: Regular S1 S2, GI: soft, normoactive bowel sounds, : Del Castillo catheter in place with hematuria EXTREMITIES: No edema, no clubbing, MUSCULOSKELETAL: no muscle wasting NEURO: Awake; no lateralizing signs. SKIN: No Rash PSYCH; Flat affect Assessment & Plan Assessment/Plan (1) Sepsis: QUALIFIERS: Sepsis acute organ dysfunction status: with acute organ dysfunction Sepsis type: sepsis due to unspecified organism Severe sepsis acute organ dysfunction type: unspecified Severe sepsis shock status: with septic shock Qualified Code(s): A41.9 - Sepsis, unspecified organism; R65.21 - Severe sepsis with septic shock (2) Acute UTI: PLAN: Plan Patient is a 59-year-old gentleman who presented with abdominal pain with diarrhea as well as back pain. An assessment of sepsis secondary to C. difficile colitis made admitted to a monitored bed for subsequent management 1. Sepsis ? Secondary to C. difficile colitis Patient managed with IV metronidazole as well as p.o. vancomycin via NG tube 2. Acute hepatic encephalopathy ? Secondary to nonalcoholic fatty liver disease with cirrhosis. Patient was found to have severe hypomagnesemia and NG tube was placed patient did receive lactulose 3. Acute metabolic encephalopathy ? Due to combination of sepsis hepatic encephalopathy as well as hyponatremia treatment of underlying etiology initiated 4. Cirrhosis of the liver ? Secondary to nonalcoholic fatty liver disease patient was seen in consultationby GI. Patient is on rifaximin continue 5. Hyponatremia ? Resolved 6. Obstructive sleep apnea ? Patient is on CPAP at night consistent use encouraged 7. Diabetes mellitus type II -patient's oral hypoglycemics held. Placed on long acting insulin, Accu-Cheks a.c. and at bedtime and covered with sliding scale insulin 8. GERD ? Patient is on PPI 9. Class I obesity with BMI of 32 ? Complicating care weight loss advised 10. Hypokalemia -Corrected per protocol 11. Chronic thrombocytopenia ? Secondary to chronic liver disease monitoring 12. Anemia ? Secondary to chronic disorder monitoring H&H and transfuse if patient becomes symptomatic or hemoglobin falls below 7 13. Nephrolithiasis with hematuria ? Patient is known to have a staghorn calculus and has a stent in place. Was seen in consultation by Dr Rascon with urology's notes and recommendations reviewed. Patient has Del Castillo catheter in place hematuria persist 14. DVT prophylaxis ? Avoid any use of chemoprophylaxis given patient low platelet count as well as hematuria Time spent in the patient's overall evaluation,decision-making process, review of diagnostic data, adjustment of management, discussion with other providers, nursing nursing and ancillary staff involved in patient's care documentation, 50 Minutes Charges/Coding Visit Charges Inpatient E&M: 16441 Subs Hosp L3 11/01/24 1141 <Electronically signed by Hill Acuña MD> Cosigner Signature (if applicable): CC: ~ Signed [facility] Work Phone: [phone]) [phone] Progress note Author Niranjan Li [facility] Note Date/Time November 01, 2024 8:4 4am [facility] Medical Records Department [address] [place] [address] Progress Note 11/01/24 0836 MR#: [id number] Acct: [id number] Name: FRANKLIN ARCUHLETA Rep #:[id number] : 1965 59 From: Niranjan Li DO PCP: Care Physician,No Primary Status :ADM IN Location: [place] [address] Progress Note Patient has a little bit longer today. He has been having multiple bowel movements with administration of lactulose via NG tube. However he has not beenexperiencing a expected nongap metabolic acidosis. He is about -100 and his fluid balance. No signs of GI bleeding at this time. His abdomen is slightly alittle bit more distended. Physical Exam Narrative General: Drowsy HEENT: Atraumatic, PERRLA, normocephalic Oral: Dry mucosa Neck: Supple, No JVD Lungs: Diminished, Normal air movement, No rhonchi, No wheeze, No rales Cardiovascular: Regular rate, Regular Rhythm, Normal S1, Normal S2, No murmurs Abdomen: Soft, Non Tender, Non-Distended, No Hepato-splenomegaly Extremities: No edema, Capillary Refill Less than 3 Seconds Skin: No rashes, No breakdown Musculoskeletal: No Tenderness to Palpation of Joints or Extremities Neurological: No focal neurological deficits, moves all extremities Psych/Mental Status: Flat Assessment & Plan Assessment/Plan (1) Sepsis: QUALIFIERS: Sepsis type: sepsis due to unspecified organism Sepsis acute organ dysfunction status: with acute organ dysfunction Severe sepsis acute organ dysfunction type: unspecified Severe sepsis shock status: withseptic shock Qualified Code(s): A41.9 - Sepsis, unspecified organism; R65.21 - Severe sepsis with septic shock (2) Acute hypotension: (3) Leukocytosis: QUALIFIERS: Leukocytosis type: unspecified Qualified Code(s): D72.829 - Elevated white blood cell count, unspecified (4) Acidosis, lactic: (5) Acute UTI: (6) History of uric acid staghorn calculus: (7) Diarrhea: QUALIFIERS: Diarrhea type: presumed infectious Qualified Code(s):R19.7 - Diarrhea, unspecified (8) Chronic abdominal pain: (9) Chronic back pain: QUALIFIERS: Back pain location: back pain in unspecified location Back pain laterality: unspecified Qualified Code(s): M54.9 - Dorsalgia, unspecified; G89.29 - Other chronic pain (10) Hyponatremia: (11) Obesity (BMI 30.0-34.9): (12) Clostridium difficile colitis: PLAN: Plan 59 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 He currently has a meld of 28 which carries a 20% mortalityin the next 90 days. He is also a child Gonzalez class C due to sepsis (urosepsis, cdiff) and acute kidney injury. He also has chronic hypotension, anemia, thrombocytopenia. Cdiff colitis- Broad-spectrum antibiotic use probrably predisposed him to Cdiff.His wbc is increasing which is not a good sign. This puts him at risk for toxic megacolon. individuals to selective elimination of healthy gut microbiota and overgrowth of Clostridium difficile (C. difficile) in the gastrointestinal gaviota. He should be on Vancomyocin 125mg PO QID and Metronidiazole 500mg IV Q12. Severe Hypoammonemia- Secondary to urosepsis and cdiff colitis. His ammonia willbe very difficult to control until his sepsis is undercontrol. Continue lactulose until he develops a Non-gapped metabolic acidosis with a goal bicarbonate of 18. Cirrhosis- Check his INR/PT/PTT- high risk for DIC. Hyperbilirubinemia of 1.83 mg/dL, with AST 48 U/L, ALT 23 U/L and Alkaline Phosphatase 274 U/L all present on admission - but improved since his recent previous admission. He underwent outpatient ultrasound-guided paracentesis on September 29, 2024 with ~4.5L of yellow-colored fluid removed with no ascites on CT this admission. 11/01/2024-patient on medical therapy for severe C. difficile colitis. It does bother me that his INR is not improving with IM vitamin K. He still remains at 2.5 which increases his MELD 30. This carries a greater than 50% mortality in the next 90 days from cirrhosis. His kidney function seems to be maintaining and has not shown any signs of hepatorenal syndrome type I or type II. He is not showing signs of significant metatobolic acidosis. He needs a urine sodium. He will need to recheck his ammonia. He has a chronically high hyperammonemia likely secondary to poor kidney function and noncompliance with his medications. I would like to get his fluid balance a little bit more negative. It was possible to change the pH of his To extract more ammonia from his blood if needed. He will need to be maintained on vancomycin 125 mg p.o. every 6 hours along withmetronidazole 500 mg IV. Because he is immunosuppressed due to cirrhosis he would likely need Zinplava on discharge from the hospital if it is possible. Hewill need this approximately 7 days after he is discharged from the hospital. Guarded prognosis. -Urine sodium -Strict I's and O's -Repeat ammonia level -Continue lactulose -Continue Flagyl and vancomycin -Need to discuss with urology regarding the need for the Zosyn as it increases his risk of recurrent C. difficile colitis. If he will need to be on antibiotictherapy for his urinary tract infection, he will need to be on prophylactic doses of vancomycin. Visit Charges Inpatient E&M: 24393 Subs Hosp L3 11/01/24 0844 <Electronically signed by Niranjan Friend DO> Niranjan Friend DO Cosigner Signature (if applicable): CC: ~ Signed [facility] Work Phone: [phone]) [phone] Consult note Author Ale Renee [facility] Note Date/Time November 01, 2024 6:1 1am [facility] Medical Records Department [address] [place] [address] Pharmacokinetic/Renal -Consult 11/01/24 0604 MR#: [id number] Acct: [id number] Name: FRANKLIN ARCHULETA Rep #:[id number] : 1965 59 From: Ale Renee PCP: Care Physician,No Primary Status :ADM IN Y Location: [place] [address] Consult Antibiotic Management Pharmacy has been consulted to manage selected antibiotic: Vancomycin Type of Intervention Type of Consult: Follow-up Suspected Infection Suspected Infection: Sepsis Labs Labs: Sodium 135 mmol/L (133-145) 11/01/24 04:38 Potassium 3.4 mmol/L (3.3-5.1) 11/01/24 04:38 Chloride 110 mmol/L (98-108) H 11/01/24 04:38 Carbon Dioxide 13.0 mmol/L (21.0-32.0) L 11/01/24 04:38 Anion Gap 13 (5-15) 11/01/24 04:38 BUN 27 mg/dL (4-19) H 11/01/24 04:38 Creatinine 1.19 mg/dL (0.70-1.20) 11/01/24 04:38 Est GFR (MDRD) Non-Af 71 (>60) 11/01/24 04:38 BUN/Creatinine Ratio 22.4 RATIO (10-20) H 11/01/24 04:38 Glucose 235 mg/dL (70-99) H 11/01/24 04:38 Vancomycin Trough 17.7 ug/mL (5.0-15.0) H 11/01/24 04:38 Microbiology Microbiology: Microbiology 10/29/24 02:01 Urine, Clean Catch Urine Culture - Final Culture exhibits no growth. 10/29/24 01:00 Blood Culture (Wb) - Anticubital Left Blood Culture - Preliminary No growth in 48 hours. 10/29/24 00:32 Blood Culture (Wb) - Right Wrist Blood Culture - Preliminary No growth in 48 hours. 10/30/24 06:46 Stool Stool Lactoferrin - Final 10/30/24 06:46 Stool Enteric Bacteriology - Final 10/30/24 06:46 Stool C. difficile GDH Antigen & Toxins - Final Toxigenic C. difficile 10/30/24 06:46 Stool Clostridioides difficile (PCR) - Final Estimated Creatinine Clearance Estimated Creatinine Clearance: 76 Goal Trough Goal Trough: 15-20 mcg/mL Pharmacy Plan for Drug Dosing Pharmacy Plan for Drug Dosing: VANCOMYCIN LEVEL RECEIVED Current Vancomycin Dose: 750mg Q12H Number of Doses Received: 750mg x3 since adjustment Vancomycin Level: 17.7 Hours Since Last Dose: 9 Renal Function: sCr 1.19 Renal Function Trend: stable Lab/Micro: pending Vancomycin Plan/Comments: Continue 750mg Q12H Pending Level: Vancomycin trough @ 16:30 11/02/24 Pharmacy Service will continue to monitor and adjust dosing as required. Follow-Up Labs Follow-Up Labs: Trough: Vancomycin (11/02/24 @ 16:30) 11/01/24 0605 <Electronically signed by Ale Renee> Date _ Ale Renee 11/01/24 0611 <Electronically signed by Hill Stiles DO> Cosigner Signature (if applicable): Date Hill Caro DO CC: ~ Signed [facility] Work Phone: 1(396) 343-972703-30-2025 Progress note Author Buster Fuchs [facility] Note Date/Time October 31, 2024 9:5 5am [facility] Medical Records Department [address] [place] [address] Progress Note - Hospitalist 10/31/24 0952 MR#: [id number] Acct: [id number] Name: FRANKLIN ARCHULETA Rep #:[id number] : 1965 59 From: Buster duarte MD PCP: Care Physician,No Primary Status :ADM IN Location: ICU ICU02-1 Subjective Subjective Becoming more alert today with initiation of p.o. vancomycin for C. difficile. Continue with lactulose via his NG tube Objective Data Objective Data Vital Signs: Vital Signs Temp Pulse Resp BP Pulse Ox O2 Del Method 98.1 F 97 16 131/77 H 96 Room Air 10/31/24 04:00 10/31/24 09:00 10/31/24 09:00 10/31/24 09:00 10/31/24 09:00 10/31/24 09:00 Oxygen Delivery Method Room Air Weight: 204 lb 5.896 oz Body Mass Index (BMI) 30.2 Intake & Output: Intake and Output for Last 24 Hours 10/30/24 10/31/24 11/01/24 03:59 03:59 03:59 Intake Total 2100 / 2100 1040 / 1040 265 / 265 Output Total 250 / 250 1475 / 1475 Balance 1850 / 1850 -435 / -435 265 / 265 Lab / Micro Data 10/31/24 05:56 10/31/24 05:56 Labs: Laboratory Results - last 24 hr 10/30/24 11:32: POC Glucose 194 H 10/30/24 15:05: Vancomycin Trough 20.5 H 10/30/24 16:55: POC Glucose 193 H 10/30/24 21:46: PT 27.1 H, INR 2.5, APTT 41.4 H 10/31/24 05:56: WBC 28.4 H, RBC 3.88 L, Hgb 12.1 L, Hct 36.0 L, MCV 92.8, MCH 31.2, MCHC 33.6, RDW Std Deviation 66.8 H, RDW Coeff of Francis 19.7 H, Plt Count 122 L, MPV 12.9 H, Immature Gran % (Auto) 3.900 H, Neut % (Auto) 80.3 H, Lymph %(Auto) 5.9 L, [place] % (Auto) 7.9, Eos % (Auto) 1.5, Baso % (Auto) 0.5, Absolute Neuts (auto) 22.8 H, Absolute Lymphs (auto) 1.66, Nucleated RBC % 0, Anisocytosis 1+, PT Cancelled, INR Cancelled, APTT Cancelled, Sodium 136, Potassium 3.3, Chloride 110 H, Carbon Dioxide 15.3 L, Anion Gap 11, BUN 26 H, Creatinine 1.18, Estim Creat Clear Calc 76.73, Est GFR (MDRD) Non-Af 72, BUN/Creatinine Ratio 21.7 H, Glucose 193 H, Calcium 9.0, Total Bilirubin 2.18 H, AST 31, ALT 20, Alkaline Phosphatase 243 H, Total Protein 5.6 L, Albumin 2.5 L, Globulin 3.0, Albumin/Globulin Ratio 0.8 L 10/31/24 07:50: PT 27.2 H, INR 2.5, APTT 42.7 H Micro: Microbiology 10/29/24 01:00 Blood Culture (Wb) - Anticubital Left Blood Culture - Preliminary No growth in 48 hours. 10/29/24 00:32 Blood Culture (Wb) - Right Wrist Blood Culture - Preliminary No growth in 48 hours. 10/30/24 06:46 Stool Stool Lactoferrin - Final 10/30/24 06:46 Stool Enteric Bacteriology - Final 10/30/24 06:46 Stool C. difficile GDH Antigen & Toxins - Final Toxigenic C. difficile 10/30/24 06:46 Stool Clostridioides difficile (PCR) - Final 10/29/24 02:01 Urine, Clean Catch Urine Culture - Preliminary Culture exhibits no growth. Rhythm Strip Rhythm Strip: Sinus Rhythm Rate: 83 Ectopy: None Physical Exam Narrative General: Drowsy HEENT: Atraumatic, PERRLA, normocephalic Oral: Dry mucosa Neck: Supple, No JVD Lungs: Diminished, Normal air movement, No rhonchi, No wheeze, No rales Cardiovascular: Regular rate, Regular Rhythm, Normal S1, Normal S2, No murmurs Abdomen: Soft, Non Tender, Non-Distended, No Hepato-splenomegaly Extremities: No edema, Capillary Refill Less than 3 Seconds Skin: No rashes, No breakdown Musculoskeletal: No Tenderness to Palpation of Joints or Extremities Neurological: No focal neurological deficits, moves all extremities Psych/Mental Status: Flat Assessment & Plan Assessment/Plan (1) Sepsis: QUALIFIERS: Sepsis type: sepsis due to unspecified organism Sepsis acute organ dysfunction status: with acute organ dysfunction Severe sepsis acute organ dysfunction type: unspecified Severe sepsis shock status: with septic shock Qualified Code(s): A41.9 - Sepsis, unspecified organism; R65.21 - Severe sepsis with septic shock (2) Acute UTI: PLAN: Plan 1. Sepsis due C. difficile colitis ? He does have a staghorn calculus ? Urology says there is nothing to do acutely ? Continue with broad-spectrum antibiotics ? Cultures are pending, C. difficile testing did come back positive appreciate GIs assistance, they did add IV Flagyl ? Appreciate housekeeping cleaner assistance 2. Acute metabolic cephalopathy with nonalcoholic cirrhotic liver disease possible hepatic encephalopathy/chronic anemia and thrombocytopenia ? Due to sepsis in combination with his elevated ammonia in the setting of liverdisease ? Continue with lactulose ? C. difficile positive ? Hyponatremia is resolved ? Hold his Lasix 3. GERD ? Stable ? Continue with PPI 4. DM2 ? Accu-Cheks ? Insulin ? Will monitor make adjustments as necessary DVT: SCDs Charges/Coding Visit Charges Inpatient E&M: 14314 Subs Hosp L2 10/31/24 0955 <Electronically signed by Buster Fuchs MD> Cosigner Signature (if applicable): CC: ~ Signed [facility] Work Phone: 1(209) 158-434403-30-2025 Consult note Author Foster Rascon [facility] Note Date/Time October 31, 2024 7:3 1am [facility] Medical Records Department [address] [place] [address] Consultation 10/31/24 0730 MR#: [id number] Acct: [id number] Name: FRANKLIN ARCHULETA Rep #:[id number] : 1965 59 From: Foster Rascon MD PCP: Care Physician,No Primary Status :ADM IN Location: ICU ICU02-1 Consult Date of Consult: 10/31/24 Reason for Consult 59-year-old male with staghorn calculus in the left kidney he does have a stent in place CAT scan did not show any hydronephrosis I had thoughts of placing a nephrostomy tube because he continued to have a high white count but talking to the hospitalist he was concerned about C. difficile. C. difficile did come backpositive this probably explains explains his high white blood count I think and hold off on the IV abdomen putting the nephrostomy tube does have a stent in place that was in place too long ago. Will continue to follow but I do not think a nephrostomy tube at this point given the new evidence is necessary whiletreating for C. difficile and see if this will resolve his white blood count. 10/31/24 0731 <Electronically signed by Foster Rascon MD> Cosigner Signature (if applicable): CC: No Primary Care Physician~ Signed [facility] Work Phone: 1(142) 625-112703-30-2025 [facility]03-29-2025 Consult note Author Niranjan Li [facility] Note Date/Time October 30, 2024 9:3 4pm [facility] Medical Records Department [address] [place] [address] Consultation - GI 10/30/242047 MR#: [id number] Acct: [id number] Name: FRANKLIN ARCHULETA Rep #:[id number] : 1965 59 From: Niranjan Li DO PCP: Care Physician,No Primary Status :ADM IN Location: ICU ICU02-1 HPI Consult Data Date of Consult: 10/30/24 HPI Narrative Reason for Consultation: Cirrhosis HPI Narrative: FRANKLIN ARCHULETA, is a 59 M with a past medical history of DM, BOYER cirrhosis (MELD16 to 20, recurrent ascites, chronic hyperammonemia, thrombocytopenia, chronic hypotension), CKD stage 2-3. He has a recent h/o Left Staghorn Calculus and underwent cystoscopy with Left ureteral stent placement by Dr. Rascon. Blood cultures returning positive for MRSA. He recently paracentesis on September 29, 2024 with ~4.5L of yellow-colored fluid removed. He presented backto [facility] ER complaining of abdominal pain, back pain and diarrhea. He currently has severe Leukocytosis of 31K; with 1.4% Left-shift, Lactic Acidosis. He is in the ICU with a dx of Sepsis with Septic Shock. CT evidence of stable Left double-J stent with Large Dystrophic Calcifications within the Left renal pelvis, with no evidence of hydronephrosis in addition to findings ofcirrhosis with protal hypertension including splenomegaly, large varices and portal colopathy, without ascites. He was also identified as having C.diff infection and is currently on VancomycinIV and oral. He is also on Zosyn for urosepsis. [facility] Medical History Chronic hypotension Obesity (BMI 30-39.9) Chronic back pain ISABEL (acute kidney injury) Hypotension Hepatic encephalopathy Hyperbilirubinemia 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) HLD (hyperlipidemia) HTN (hypertension) Thrombocytopenia Chronic anemia Former tobacco use Diabetes mellitus, type 2 ABBY on CPAP Back pain Home Medications ?Medication ?Instructions ?Recorded ?Last Taken ?Type lidocaine 5 % topical patch 3 patch topical DAILY #90 ea 09/02/24 Unknown Rx pantoprazole 40 mg tablet,delayed 40 mg PO BID #60 tab s 09/02/24 Unknown Rx release rifaximin 550 mg tablet (Xifaxan) 550 mg PO BID #60 ta bs 09/02/24 Unknown Rx cyclobenzaprine 5 mg tablet 5 mg PO TID PRN muscle spa sm #0 09/14/24 Unknown Rx tabs insulin lispro 100 unit/mL See Protocol subcut ACHS #0 mL 09/14/24 Unknown Rx subcutaneous pen (Humalog KwikPen (U-100) Insulin) acetaminophen 500 mg tablet 1,000 mg PO Q8 PRN fever o r pain 10/28/24 Unknown History calcium 500 mg (as 1 tab PO DAILY 10/28/24 Unkn own History carbonate)-vitamin D3 5 mcg (200 unit) tablet (Oyster Shell Calcium-Vitamin D3) folic acid 1 mg tablet 1 mg PO DAILY 10/28/24 Unkno wn History furosemide 40 mg tablet 40 mg PO DAILY 10/28/24 Unkn own History ibuprofen 800 mg tablet 800 mg PO TID PRN PRN fever or pain 10/28/24 Unknown History Allergy/AdvReac Type Severity Reaction Status Date / Time No Known Allergies Allergy Verified 09/04/24 21:19 Family History Mother Heart disease Hypertension CAD (coronary artery disease) Myocardial infarction Father Hypertension Heart disease Heart failure Surgical History History of tonsillectomy and adenoidectomy Social History household members: significant other Smoking Status: Former smoker how long ago did patient quit smoking: Quit ~ 3-4 months prior (fall 2023), smoked 1.5 ppd since teen until quit. alcohol intake: never substance use type: does not use ROS ROS Narrative 10 systems were reviewed with pertinent positives as noted in the HPI above. Physical Exam Const Orientation / Consciousness: obtunded HEENT head/scalp atraumatic Eyes PERRL Neck full ROM and no JVD Resp normal respiratory effort Cardio regular rate Lab / Micro Data 10/30/24 06:15 10/30/24 06:15 Labs: Laboratory Results - last 24 hr 10/29/24 17:45: POC Glucose 191 H 10/29/24 23:20: POC Glucose 194 H 10/30/24 05:53: POC Glucose 236 H 10/30/24 06:15: WBC 31.7 H*, RBC 3.64 L, Hgb 11.5 L, Hct 33.4 L, MCV 91.8, MCH 31.6, MCHC 34.4, RDW Std Deviation 64.5 H, RDW Coeff of Francis 19.8 H, Plt Count 121 L, MPV 11.6, Immature Gran % (Auto) 1.800 H, Neut % (Auto) 85.6 H, Lymph % (Auto) 4.3 L, [place] % (Auto) 7.3, Eos % (Auto) 0.5, Baso % (Auto) 0.5, Absolute Neuts (auto) 27.2 H, Absolute Lymphs (auto) 1.35, Nucleated RBC % 0, Sodium 133,Potassium 3.8, Chloride 105, Carbon Dioxide 15.2 L, Anion Gap 12, BUN 26 H, Creatinine 1.25 H, Estim Creat Clear Calc 72.43, Est GFR (MDRD) Non-Af 67, BUN/Creatinine Ratio 20.6 H, Glucose 239 H, Calcium 9.3 10/30/24 06:27: Ammonia 130.0 H 10/30/24 11:32: POC Glucose 194 H 10/30/24 15:05: Vancomycin Trough 20.5 H 10/30/24 16:55: POC Glucose 193 H Micro: Microbiology 10/30/24 06:46 Stool Stool Lactoferrin - Final 10/30/24 06:46 Stool Enteric Bacteriology - Final 10/30/24 06:46 Stool C. difficile GDH Antigen & Toxins - Final Toxigenic C. difficile 10/30/24 06:46 Stool Clostridioides difficile (PCR) - Final 10/29/24 02:01 Urine, Clean Catch Urine Culture - Preliminary Culture exhibits no growth. Rhythm Strip Rhythm Strip: Sinus Rhythm Rate: 83 Ectopy: None Imaging Radiology Impression KUB X-Ray 10/30/24 09:11 IMPRESSION: NG tube in satisfactory position. Reading Location: COUNTS INCLUDE 234 BEDS AT THE [facility] Assessment & Plan Assessment/Plan (1) Sepsis: QUALIFIERS: Sepsis acute organ dysfunction status: with acute organ dysfunction Sepsis type: sepsis due to unspecified organism Severe sepsis acute organ dysfunction type: unspecified Severe sepsis shock status: with septic shock Qualified Code(s): A41.9 - Sepsis, unspecified organism; R65.21 - Severe sepsis with septic shock (2) Acute hypotension: (3) Leukocytosis: QUALIFIERS: Leukocytosis type: unspecified Qualified Code(s): D72.829 - Elevated white blood cell count, unspecified (4) Acidosis, lactic: (5) Acute UTI: (6) History of uric acid staghorn calculus: (7) Diarrhea: QUALIFIERS: Diarrhea type: presumed infectious Qualified Code(s):R19.7 - Diarrhea, unspecified (8) Chronic abdominal pain: (9) Chronic back pain: QUALIFIERS: Back pain laterality: unspecified Back pain location:back pain in unspecified location Qualified Code(s): M54.9 - Dorsalgia, unspecified; G89.29 - Other chronic pain (10) Hyponatremia: (11) Obesity (BMI 30.0-34.9): (12) Clostridium difficile colitis: PLAN: Plan 59 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 He currently has a meld of 28 which carries a 20% mortalityin the next 90 days. He is also a child Gonzalez class C due to sepsis (urosepsis, cdiff) and acute kidney injury. He also has chronic hypotension, anemia, thrombocytopenia. Cdiff colitis- Broad-spectrum antibiotic use probrably predisposed him to Cdiff.His wbc is increasing which is not a good sign. This puts him at risk for toxic megacolon. individuals to selective elimination of healthy gut microbiota and overgrowth of Clostridium difficile (C. difficile) in the gastrointestinal gaviota. He should be on Vancomyocin 125mg PO QID and Metronidiazole 500mg IV Q12. Severe Hypoammonemia- Secondary to urosepsis and cdiff colitis. His ammonia willbe very difficult to control until his sepsis is undercontrol. Continue lactulose until he develops a Non-gapped metabolic acidosis with a goal bicarbonate of 18. Cirrhosis- Check his INR/PT/PTT- high risk for DIC. Hyperbilirubinemia of 1.83 mg/dL, with AST 48 U/L, ALT 23 U/L and Alkaline Phosphatase 274 U/L all present on admission - but improved since his recent previous admission. He underwent outpatient ultrasound-guided paracentesis on September 29, 2024 with ~4.5L of yellow-colored fluid removed with no ascites on CT this admission. Charges/Coding Visit Charges Inpatient E&M: 81679 Init Hosp L3 10/30/242133 <Electronically signed by Niranjan Li DO> Cosigner Signature (if applicable): CC: No Primary Care Physician~ Signed [facility] Work Phone: 1(696) 357-780303-29-2025 Consult note Author Kourtney Reece [facility] Note Date/Time October 30, 2024 4:1 2pm [facility] Medical Records Department [address] [place] [address] Pharmacokinetic/Renal -Consult 10/30/24 1552 MR#: [id number] Acct: [id number] Name: FRANKLIN ARCHULETA Rep #:[id number] : 1965 59 From: Kourtney Reece PCP: Care Physician,No Primary Status :ADM IN Y Location: ICU ICU02-1 Consult Antibiotic Management Pharmacy has been consulted to manage selected antibiotic: Vancomycin Type of Intervention Type of Consult: Follow-up Labs Labs: Sodium 133 mmol/L (133-145) 10/30/24 06:15 Potassium 3.8 mmol/L (3.3-5.1) 10/30/24 06:15 Chloride 105 mmol/L (98-108) 10/30/24 06:15 Carbon Dioxide 15.2 mmol/L (21.0-32.0) L 10/30/24 06:15 Anion Gap 12 (5-15) 10/30/24 06:15 BUN 26 mg/dL (4-19) H 10/30/24 06:15 Creatinine 1.25 mg/dL (0.70-1.20) H 10/30/24 06:15 Est GFR (MDRD) Non-Af 67 (>60) 10/30/24 06:15 BUN/Creatinine Ratio 20.6 RATIO (10-20) H 10/30/24 06:15 Glucose 239 mg/dL (70-99) H 10/30/24 06:15 Vancomycin Trough 20.5 ug/mL (5.0-15.0) H 10/30/24 15:05 Microbiology Microbiology: Microbiology 10/30/24 06:46 Stool Stool Lactoferrin - Final 10/30/24 06:46 Stool Enteric Bacteriology - Final 10/30/24 06:46 Stool C. difficile GDH Antigen & Toxins - Final Toxigenic C. difficile 10/30/24 06:46 Stool Clostridioides difficile (PCR) - Final 10/29/24 02:01 Urine, Clean Catch Urine Culture - Preliminary Culture exhibits no growth. Pharmacy Plan for Drug Dosing Pharmacy Plan for Drug Dosing: VANCOMYCIN LEVEL RECEIVED Current Vancomycin Dose: 1000MG Q12 Number of Doses Received: 3 Vancomycin Level: 20.5 MG/DL Hours Since Last Dose: 11.5 Renal Function: SCr 1.25mg/dL, CrCl 72 mL/min Renal Function Trend: slightly improved Lab/Micro: blood and urine cx pending Vancomycin Plan/Comments: 11.5 hour trough is slightly supratherapeutic at 20.5 mg/dL (goal 15-20). Will decrease dose to 750mg and wait a couple of hours to start since level was just slightly above range. Will get a trough in 2 days perpolicy. Pending Level: 11/01/24 @ 0430 Pharmacy Service will continue to monitor and adjust dosing as required. 10/30/24 5956 <Electronically signed by Kourtney Reece> Date _ Kourtney Reece 10/30/24 1612 <Electronically signed by Buster hurst MD> Cosigner Signature (if applicable): Date Buster Fuchs MD CC: ~ Signed [facility] Work Phone: [phone]) 954-640803-29-2025 Progress note Author Jeff [facility] Note Date/Time October 30, 2024 10: 45am [facility] Medical Records Department [address] [place] [address] Progress Note - General Internist And Physician Leader 10/30/24 1037 MR#: [id number] Acct: [id number] Name: FRANKLIN ARCHULETA Rep #:[id number] : 1965 59 From: Jeff Cornelisu MD PCP: Care Physician,No Primary Status :ADM IN Location: ICU ICU02-1 Objective Data Objective Data Vital Signs: Vital Signs Last response 3 Temperature 36.6 C 10/30/24 10:00 Temperature Source Temporal 10/30/24 10:00 Pulse Rate 82 10/30/24 10:00 Pulse Strength Normal (2+) 10/30/24 10:00 Respiratory Rate 14 10/30/24 10:00 Respiratory Effort Accessory Muscle Use 10/30/24 08:00 Respiratory Depth Normal 10/30/24 08:00 Respiratory Pattern Normal 10/30/24 08:00 Blood Pressure 115/70 10/30/24 10:00 Blood Pressure Mean 85 10/30/24 10:00 Blood Pressure Source Monitor 10/30/24 10:00 Blood Pressure Position Semi-Fowlers 10/30/24 10:00 Blood Pressure Location Left Arm 10/30/24 10:00 Pulse Ox 97 10/30/24 10:00 Oxygen Delivery Method Room Air 10/30/24 10:00 I&O: I&O Last 24 Hours 3 10/29/24 10/29/24 10/30/24 11:59 23:59 11:59 Intake Total 3850 / 4100 250 / 4100 410 / 410 Output Total 0 / 250 250 / 250 600 / 600 Balance 3850 / 3850 0 / 3850 -190 / -190 I&O: Total Stay 3 10/28/24 17:10 thru 10/30/24 09:57 Intake Total 5510 Output Total 850 Balance 4660 Current Meds Ordered / Administered: Current meds ordered / Administered 3 Generic Name Dose Route Start Last Admin Trade Name Juan Antonio PRN Reason Stop Dose Admin Acetaminophen 650 mg 10/29/24 02:00 Acetaminophen 325 Mg Tablet PO Q8H PRN Pain 1-5 or Fever Ascorbic Acid 1,000 mg 10/29/24 08:00 10/30/24 09:57 Ascorbic Acid 500 Mg Tablet PO 1,000 mg BIDCM KRYSTIN Administration Chlorhexidine Gluconate 1 each 10/30/24 10:00 10/29/24 23:00 Chlorhexidine Gluc 2% Cloth 1 Each Towelette TOPICAL 1 each DAILY KRYSTIN Administration Cholecalciferol 125 mcg 10/29/24 10:00 10/30/24 09:56 Cholecalciferol (Vit D3) 125 Mcg Capsule (5,000 Units) PO 125 mcg DAILY KRYSTIN Administration Cyclobenzaprine HCl 5 mg 10/29/24 02:00 Cyclobenzaprine Hcl 5 Mg Tablet PO TID PRN muscle spasm Folic Acid 1 mg 10/29/24 08:00 10/30/24 09:56 Folic Acid 1 Mg Tablet PO 1 mg BREAKFAST KRYSTIN Administration Vancomycin IV-PHARMACY TO DOSE 500 mls @ 250 mls/hr 10/29/24 02:00 1 each/ Sodium Chloride IV PRN PRN Rx to Dose Protocol Piperacillin Sod/Tazobactam 50 mls @ 12.5 mls/hr 10/29/24 02:00 10/30/24 09:57 Sod 3.375 gm/ Sodium Chloride IV Infused Q8 KRYSTIN Infusion Pantoprazole Sodium 40 mg/ 110 mls @ 330 mls/hr 10/29/24 10:00 10/30/24 08:28 Sodium Chloride IV Infused Q24 KRYSTIN Infusion Sodium Chloride 100 mls @ 15 mls/hr 10/29/24 02:01 IV .Q6H40M PRN Saline Flush Sodium Chloride 100 mls @ 15 mls/hr 10/29/24 02:01 IV .Q6H40M PRN Additional IVPB Infusion Vancomycin HCl 1,000 mg in 200 mls @ 200 mls/hr 10/29/24 15:00 10/30/24 04:35 Vancomycin IV Infused Q12H KRYSTIN Infusion Insulin Human Lispro 0 unit 10/29/24 12:00 10/30/24 05:56 Insulin Lispro 100 Unit/Ml Insuln.Pen SC 3 units Q6 KRYSTIN Administration Protocol Lactulose 15 gm 10/30/24 14:00 10/30/24 09:55 Lactulose 20 Gm/30 Ml Udc NG 15 gm TID KRYSTIN Administration Lidocaine 3 patch 10/29/24 10:00 10/30/24 10:14 Lidocaine 5% Patch TOPICAL Not Given DAILY [facility] Protocol Midodrine 10 mg 10/29/24 02:00 10/30/24 09:56 Midodrine Hcl 5 Mg Tablet PO 10 mg TIDCM KRYSTIN Administration Morphine Sulfate 2 mg 10/29/24 02:00 10/29/24 02:14 Morphine 2 Mg/Ml Syringe IV 2 mg Q4H PRN PRN Administration Pain Score 6-10 Ondansetron HCl 4 mg 10/29/24 13:31 10/29/24 13:36 Ondansetron 4 Mg/2 Ml Vial IV 4 mg Q6H PRN PRN Administration NAUSEA Rifaximin 550 mg 10/29/24 10:00 10/30/24 09:55 Rifaximin 550 Mg Tablet PO 550 mg BID KRYSTIN Administration Sodium Chloride 10 - 40 ml 10/29/24 02:01 10/29/24 23:10 0.9% Saline Lock 10 Ml Syringe IV 10 ml UD PRN Administration SALINE FLUSH Vancomycin Protocol 1 lab 10/30/24 12:30 Vancomycin Trough/Random Due 10/30/24 16:30 DAILY KRYSTIN Zinc Sulfate 50 mg 10/29/24 10:00 10/30/24 09:57 Zinc Sulfate 50 Mg Zinc (220 Mg) Oral Capsule PO 50 mg DAILY KRYSTIN Administration Lab / Micro Data Attestation: I reviewed the patient's lab results. 10/30/24 06:15 10/30/24 06:15 Labs: Laboratory Results - last 24 hr 10/29/24 09:00: WBC 23.1 H, RBC 3.57 L, Hgb 11.1 L, Hct 33.0 L, MCV 92.4, MCH 31.1, MCHC 33.6, RDW Std Deviation 65.4 H, RDW Coeff of Francis 19.5 H, Plt Count 81L, MPV 12.3 H, Immature Gran % (Auto) 0.800, Neut % (Auto) 85.5 H, Lymph % (Auto) 4.6 L, Bon[place]ville % (Auto) 7.4, Eos % (Auto) 1.2, Baso % (Auto) 0.5, Absolute Neuts (auto) 19.8 H, Absolute Lymphs (auto) 1.06, Nucleated RBC % 0, Platelet Estimate MOD DEC, Polychromasia 1+, Anisocytosis 1+ 10/29/24 12:03: POC Glucose 166 H 10/29/24 17:45: POC Glucose 191 H 10/29/24 18:20: Ammonia 103.0 H 10/29/24 19:46: POC Glucose 209 H 10/29/24 23:20: POC Glucose 194 H 10/30/24 05:53: POC Glucose 236 H 10/30/24 06:15: WBC 31.7 H*, RBC 3.64 L, Hgb 11.5 L, Hct 33.4 L, MCV 91.8, MCH 31.6, MCHC 34.4, RDW Std Deviation 64.5 H, RDW Coeff of Francis 19.8 H, Plt Count 121 L, MPV 11.6, Immature Gran % (Auto) 1.800 H, Neut % (Auto) 85.6 H, Lymph % (Auto) 4.3 L, [place] % (Auto) 7.3, Eos % (Auto) 0.5, Baso % (Auto) 0.5, Absolute Neuts (auto) 27.2 H, Absolute Lymphs (auto) 1.35, Nucleated RBC % 0, Sodium 133,Potassium 3.8, Chloride 105, Carbon Dioxide 15.2 L, Anion Gap 12, BUN 26 H, Creatinine 1.25 H, Estim Creat Clear Calc 72.43, Est GFR (MDRD) Non-Af 67, BUN/Creatinine Ratio 20.6 H, Glucose 239 H, Calcium 9.3 10/30/24 06:27: Ammonia 130.0 H Micro: Microbiology 10/29/24 02:01 Urine, Clean Catch Urine Culture - Preliminary Culture exhibits no growth. 10/30/24 06:46 Stool Stool Lactoferrin - Final ABG Data ABG results: ABG 10/29/24 20:29 Specimen Type ART Sample Site L Radial pH 7.39 Bicarbonate Actual 15.2 L Total CO2 16 Base Excess -10 L O2 Saturation 93 L O2 % 21.0 ABG pCO2 25.1 L ABG pO2 67 L Alexsander Test Positive O2 Delivery Device Room Air Vent Mode Not entered Rhythm Strip Rhythm Strip: Sinus Rhythm Rate: 83 Ectopy: None Imaging Radiology Impression KUB X-Ray 10/30/24 09:11 IMPRESSION: NG tube in satisfactory position. Reading Location: COUNTS INCLUDE 234 BEDS AT [facility] Assessment and Plan . Assessment and plan: IMPRESSIONS: 1. Sepsis suspected of urinary source given history of ureteral obstruction/ prior stent placement. Hemodynamics are improving, midodrine, Abx, follow up urine cultures and Urology consult. 2. Encephalopathy, presumed HE given history of BOYER cirrhosis/chronic hypotension. Unable to start lactulose due to NGT access issue 3. History of tobacco dependency in remission/diabetes mellitus. Complicates care, management, recovery and prognosis. Continue supportive care as noted above. If no form of intervention is planned by urology, the patient's diet canbe advanced and sliding scale insulin coverage initiated. RECOMMENDATIONS: 1. NGT placement a priority- would favor IR or endoscopic placement if staff are unable to place bedside 2. Cont. empiric broad-spectrum antimicrobials, FU culture results. 3. Continue scheduled midodrine. 4. Urology consultation. 5. start lactulose. rifaximin once enteral route possible 6. Initiate sliding scale insulin coverage once diet is advanced. Critical Care Time: 50 minutes The entirety of this encounter was done via Telemedicine Physical Exam Const Orientation / Consciousness: obtunded HEENT head/scalp atraumatic Eyes PERRL Neck full ROM and no JVD Resp normal respiratory effort Cardio regular rate Subjective Subjective More lethargic today, staff still trying to place NGT so remains NPO 10/30/24 1045 <Electronically signed by Jeff Cornelius MD> Cosigner Signature (if applicable): CC: ~ Signed [facility] Work Phone: 1(307) 586-651903-29-2025 Consult note Author Foster Rascon [facility] Note Date/Time October 30, 2024 9:5 8am [facility] Medical Records Department [address] [place] [address] Consultation - Urology 10/30/24 0956 MR#: [id number] Acct: [id number] Name: FRANKLIN ARCHULETA Rep #:[id number] : 1965 59 From: Foster Rascon MD PCP: Care Physician,No Primary Status :ADM IN Location: ICU ICU02-1 HPI Consult Data Date of Consult: 10/30/24 HPI Narrative Reason for Consultation: Follow-up on infected staghorn calculus HPI Narrative: FRANKLIN ARCHULETA, is a 59 male who I saw several weeks ago with an infected staghorn calculus a stent was placed at that point he was given instructed to follow-up outpatient with a urologist in his network to deal and address the infected staghorn calculi as he represented back here to the hospital with an infection and rising white blood count, he has a stent in place his white count still keeps going higher he is fairly stable in the ICU,, however his white count spiked up to 31,000 today discussed case with hospitalist they are discussed they are thinking maybe perhaps he has C. difficile colitis with a seewhat those culture show I think is very likely that he might need a nephrostomy tube to help maximize drainage from the left kidney from this infection. The services are not available on the weekend here at [facility]. We discussed transferring to other hospital for nephrostomy tube placement. We could also have a nephrostomy tube placed on Friday if radiology services are available. For now we will continue with broad-spectrum antibiotics await culture results but if things progress I think he is going to need nephrostomy tube we will continue to follow. [facility] Medical History Chronic hypotension Obesity (BMI 30-39.9) Chronic back pain ISABEL (acute kidney injury) Hypotension Hepatic encephalopathy Hyperbilirubinemia 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) HLD (hyperlipidemia) HTN (hypertension) Thrombocytopenia Chronic anemia Former tobacco use Diabetes mellitus, type 2 ABBY on CPAP Back pain Home Medications ?Medication ?Instructions ?Recorded ?Last Taken ?Type lidocaine 5 % topical patch 3 patch topical DAILY #90 ea 09/02/24 Unknown Rx pantoprazole 40 mg tablet,delayed 40 mg PO BID #60 tab s 09/02/24 Unknown Rx release rifaximin 550 mg tablet (Xifaxan) 550 mg PO BID #60 ta bs 09/02/24 Unknown Rx cyclobenzaprine 5 mg tablet 5 mg PO TID PRN muscle spa sm #0 09/14/24 Unknown Rx tabs insulin lispro 100 unit/mL See Protocol subcut ACHS #0 mL 09/14/24 Unknown Rx subcutaneous pen (Humalog KwikPen (U-100) Insulin) acetaminophen 500 mg tablet 1,000 mg PO Q8 PRN fever o r pain 10/28/24 Unknown History calcium 500 mg (as 1 tab PO DAILY 10/28/24 Unkn own History carbonate)-vitamin D3 5 mcg (200 unit) tablet (Oyster Shell Calcium-Vitamin D3) folic acid 1 mg tablet 1 mg PO DAILY 10/28/24 Unkno wn History furosemide 40 mg tablet 40 mg PO DAILY 10/28/24 Unkn own History ibuprofen 800 mg tablet 800 mg PO TID PRN PRN fever or pain 10/28/24 Unknown History Allergy/AdvReac Type Severity Reaction Status Date / Time No Known Allergies Allergy Verified 09/04/24 21:19 Family History Mother Heart disease Hypertension CAD (coronary artery disease) Myocardial infarction Father Hypertension Heart disease Heart failure Surgical History History of tonsillectomy and adenoidectomy Social History household members: significant other Smoking Status: Former smoker how long ago did patient quit smoking: Quit ~ 3-4 months prior (fall 2023), smoked 1.5 ppd since teen until quit. alcohol intake: never substance use type: does not use Lab / Micro Data 10/30/24 06:15 10/30/24 06:15 Labs: Laboratory Results - last 24 hr 10/29/24 09:00: WBC 23.1 H, RBC 3.57 L, Hgb 11.1 L, Hct 33.0 L, MCV 92.4, MCH 31.1, MCHC 33.6, RDW Std Deviation 65.4 H, RDW Coeff of Francis 19.5 H, Plt Count 81L, MPV 12.3 H, Immature Gran % (Auto) 0.800, Neut % (Auto) 85.5 H, Lymph % (Auto) 4.6 L, [place] % (Auto) 7.4, Eos % (Auto) 1.2, Baso % (Auto) 0.5, Absolute Neuts (auto) 19.8 H, Absolute Lymphs (auto) 1.06, Nucleated RBC % 0, Platelet Estimate MOD DEC, Polychromasia 1+, Anisocytosis 1+ 10/29/24 12:03: POC Glucose 166 H 10/29/24 17:45: POC Glucose 191 H 10/29/24 18:20: Ammonia 103.0 H 10/29/24 19:46: POC Glucose 209 H 10/29/24 23:20: POC Glucose 194 H 10/30/24 05:53: POC Glucose 236 H 10/30/24 06:15: WBC 31.7 H*, RBC 3.64 L, Hgb 11.5 L, Hct 33.4 L, MCV 91.8, MCH 31.6, MCHC 34.4, RDW Std Deviation 64.5 H, RDW Coeff of Francis 19.8 H, Plt Count 121 L, MPV 11.6, Immature Gran % (Auto) 1.800 H, Neut % (Auto) 85.6 H, Lymph % (Auto) 4.3 L, Bonneville % (Auto) 7.3, Eos % (Auto) 0.5, Baso % (Auto) 0.5, Absolute Neuts (auto) 27.2 H, Absolute Lymphs (auto) 1.35, Nucleated RBC % 0, Sodium 133,Potassium 3.8, Chloride 105, Carbon Dioxide 15.2 L, Anion Gap 12, BUN 26 H, Creatinine 1.25 H, Estim Creat Clear Calc 72.43, Est GFR (MDRD) Non-Af 67, BUN/Creatinine Ratio 20.6 H, Glucose 239 H, Calcium 9.3 10/30/24 06:27: Ammonia 130.0 H ABG Data ABG results: ABG 10/29/24 20:29 Specimen Type ART Sample Site L Radial pH 7.39 Bicarbonate Actual 15.2 L Total CO2 16 Base Excess -10 L O2 Saturation 93 L O2 % 21.0 ABG pCO2 25.1 L ABG pO2 67 L Alexsander Test Positive O2 Delivery Device Room Air Vent Mode Not entered Rhythm Strip Rhythm Strip: Sinus Rhythm Rate: 83 Ectopy: None Imaging Radiology Impression Renal Ultrasound 10/29/24 00:52 IMPRESSION: 1. No hydronephrosis. 2. Staghorn calculus in the lower pole of the left kidney is better visualized on the recent CT scan. 3. Left-sided ureteral stent noted. [facility] 10/30/24 09:11 IMPRESSION: NG tube in satisfactory position. Reading [facility] 10/30/24957 <Electronically signed by Foster Rascon MD> Cosigner Signature (if applicable): CC: No Primary Care Physician~ Signed [facility] Work Phone: [phone]) 884-866003-29-2025 Progress note Author Buster Fuchs [facility] Note Date/Time October 30, 2024 8:2 9am [facility] Medical Records Department [address] [place] [address] Progress Note - Hospitalist 10/30/24819 MR#: [id number] Acct: [id number] Name: FRANKLIN ARCHULETA Rep #:[id number] : 1965 59 From: Buster duarte MD PCP: Care Physician,No Primary Status :ADM IN Location: ICU ICU02-1 Subjective Subjective Yesterday he was drowsy and arousable to voice today he arouses to pain, his ammonia has gone up despite the institution of lactulose yesterday afternoon, though he has only received 1 dose. Objective Data Objective Data Vital Signs: Vital Signs Temp Pulse Resp BP Pulse Ox O2 Del Method 97.9 F 80 17 96/63 97 Room Air 10/30/24 03:00 10/30/24 07:00 10/30/24 07:00 10/30/24 07:00 10/30/24 07:00 10/30/24 07:00 Oxygen Delivery Method Room Air Weight: 204 lb 5.896 oz Body Mass Index (BMI) 30.2 Intake & Output: Intake and Output for Last 24 Hours 10/29/24 10/30/24 10/31/24 03:59 03:59 03:59 Intake Total 3050 / 3050 2100 / 2100 200 / 200 Output Total 250 / 250 600 / 600 Balance 3050 / 3050 1850 / 1850 -400 / -400 Lab / Micro Data 10/30/24 06:15 10/30/24 06:15 Labs: Laboratory Results - last 24 hr 10/29/24 09:00: WBC 23.1 H, RBC 3.57 L, Hgb 11.1 L, Hct 33.0 L, MCV 92.4, MCH 31.1, MCHC 33.6, RDW Std Deviation 65.4 H, RDW Coeff of Francis 19.5 H, Plt Count 81L, MPV 12.3 H, Immature Gran % (Auto) 0.800, Neut % (Auto) 85.5 H, Lymph % (Auto) 4.6 L, Bonneville % (Auto) 7.4, Eos % (Auto) 1.2, Baso % (Auto) 0.5, Absolute Neuts (auto) 19.8 H, Absolute Lymphs (auto) 1.06, Nucleated RBC % 0, Platelet Estimate MOD DEC, Polychromasia 1+, Anisocytosis 1+, Sodium 132 L, Potassium 3.3, Chloride 105, Carbon Dioxide 17.0 L, Anion Gap 11, BUN 22 H, Creatinine 1.08, Estim Creat Clear Calc 82.91, Est GFR (MDRD) Non-Af 80, BUN/Creatinine Ratio 20.7 H, Glucose 214 H, Calcium 9.1, Cortisol AM Sample 10.20 10/29/24 12:03: POC Glucose 166 H 10/29/24 17:45: POC Glucose 191 H 10/29/24 18:20: Ammonia 103.0 H 10/29/24 19:46: POC Glucose 209 H 10/29/24 23:20: POC Glucose 194 H 10/30/24 05:53: POC Glucose 236 H 10/30/24 06:15: WBC 31.7 H*, RBC 3.64 L, Hgb 11.5 L, Hct 33.4 L, MCV 91.8, MCH 31.6, MCHC 34.4, RDW Std Deviation 64.5 H, RDW Coeff of Francis 19.8 H, Plt Count 121 L, MPV 11.6, Immature Gran % (Auto) 1.800 H, Neut % (Auto) 85.6 H, Lymph % (Auto) 4.3 L, Bonneville % (Auto) 7.3, Eos % (Auto) 0.5, Baso % (Auto) 0.5, Absolute Neuts (auto) 27.2 H, Absolute Lymphs (auto) 1.35, Nucleated RBC % 0, Sodium 133,Potassium 3.8, Chloride 105, Carbon Dioxide 15.2 L, Anion Gap 12, BUN 26 H, Creatinine 1.25 H, Estim Creat Clear Calc 72.43, Est GFR (MDRD) Non-Af 67, BUN/Creatinine Ratio 20.6 H, Glucose 239 H, Calcium 9.3 10/30/24 06:27: Ammonia 130.0 H ABG Data ABG results: ABG 10/29/24 20:29 Specimen Type ART Sample Site L Radial pH 7.39 Bicarbonate Actual 15.2 L Total CO2 16 Base Excess -10 L O2 Saturation 93 L O2 % 21.0 ABG pCO2 25.1 L ABG pO2 67 L Alexsander Test Positive O2 Delivery Device Room Air Vent Mode Not entered Radiography Diagnostic Testing: Radiology Impression Renal Ultrasound 10/29/24 00:52 IMPRESSION: 1. No hydronephrosis. 2. Staghorn calculus in the lower pole of the left kidney is better visualized on the recent CT scan. 3. Left-sided ureteral stent noted. Reading Location: [facility] Rhythm Strip Rhythm Strip: Sinus Rhythm Rate: 83 Ectopy: None Physical Exam Narrative General: Drowsy HEENT: Atraumatic, PERRLA, normocephalic Oral: Dry mucosa Neck: Supple, No JVD Lungs: Diminished, Normal air movement, No rhonchi, No wheeze, No rales Cardiovascular: Regular rate, Regular Rhythm, Normal S1, Normal S2, No murmurs Abdomen: Soft, Non Tender, Non-Distended, No Hepato-splenomegaly Extremities: No edema, Capillary Refill Less than 3 Seconds Skin: No rashes, No breakdown Musculoskeletal: No Tenderness to Palpation of Joints or Extremities Neurological: No focal neurological deficits, moves all extremities Psych/Mental Status: Flat Assessment & Plan Assessment/Plan (1) Sepsis: QUALIFIERS: Sepsis type: sepsis due to unspecified organism Sepsis acute organ dysfunction status: with acute organ dysfunction Severe sepsis acute organ dysfunction type: unspecified Severe sepsis shock status: with septic shock Qualified Code(s): A41.9 - Sepsis, unspecified organism; R65.21 - Severe sepsis with septic shock (2) Acute UTI: PLAN: Plan 1. Sepsis due to UTI ? He does have a staghorn calculus ? Urology says there is nothing to do acutely ? Continue with broad-spectrum antibiotics ? Cultures are pending ? Appreciate housekeeping cleaner assistance 2. Acute metabolic cephalopathy with nonalcoholic cirrhotic liver disease possible hepatic encephalopathy/chronic anemia and thrombocytopenia ? Due to sepsis in combination with his elevated ammonia in the setting of liverdisease ? Continue with lactulose ? Stool cultures are pending ? Hyponatremia is resolved ? Hold his Lasix 3. GERD ? Stable ? Continue with PPI 4. DM2 ? Accu-Cheks ? Insulin ? Will monitor make adjustments as necessary DVT: SCDs Charges/Coding Visit Charges Inpatient E&M: 79462 Subs Hosp L2 10/30/24 0829 <Electronically signed by Buster Fuchs MD> Cosigner Signature (if applicable): CC: ~ Signed [facility] Work Phone: [phone]) [phone] Radiology Diagnostic study [facility]03-28-2025 Consult note Author Foster Rascon [facility] Note Date/Time October 29, 2024 10: 32am [facility] Medical Records Department [address] [place] [address] Consultation - Urology 10/29/24 0808 MR#: [id number] Acct: [id number] Name: FRANKLIN ARCHULETA Rep #:[id number] : 1965 59 From: Foster Rascon MD PCP: Care Physician,No Primary Status :ADM IN Location: ICU ICU02-1 Assessment & Plan Assessment/Plan (1) History of uric acid staghorn calculus: (2) Obesity (BMI 30.0-34.9): (3) Hyponatremia: (4) Sepsis: QUALIFIERS: Sepsis acute organ dysfunction status: with acute organ dysfunction Sepsis type: sepsis due to unspecified organism Severe sepsis acute organ dysfunction type: unspecified Severe sepsis shock status: with septic shock Qualified Code(s): A41.9 - Sepsis, unspecified organism; R65.21 - Severe sepsis with septic shock PLAN: Staghorn calculus in the left kidney stent into the in place. Continue with antibiotics support. Will call the patient's insurance company and see if they will authorize out of network care with me locally otherwise if they do notauthorize that the patient will need to follow-up with a urologist in his network. HPI Consult Data Date of Consult: 10/29/24 HPI Narrative Reason for Consultation: Staghorn calculus and infection HPI Narrative: FRANKLIN ARCHULETA, is a gentleman who has a large stone complicated stone staghorn calculus in the left kidney when I saw the patient last time we just placed a stent he still has a stent in and out at this point he has been readmitted the ICU for sepsis and UTI and a staghorn calculus I do not see any intervention to reason the changes stent we can leave the stent in place continue with IV antibiotics and support till he recovers. Patient was given instructions to follow-up with urologist in his network as an outpatient. At this point continue with supportive management. There is no hydronephrosis. The stent is in good position. At this point is not surgically stable to undergo any kidney stone surgery but once he gets better he will need to follow-up as an outpatientwith a urologist in his network. Currently no emergency intervention is necessary from my standpoint [facility] Medical History Chronic hypotension Obesity (BMI 30-39.9) Chronic back pain ISABEL (acute kidney injury) Hypotension Hepatic encephalopathy Hyperbilirubinemia 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) HLD (hyperlipidemia) HTN (hypertension) Thrombocytopenia Chronic anemia Former tobacco use Diabetes mellitus, type 2 ABBY on CPAP Back pain Home Medications ?Medication ?Instructions ?Recorded ?Last Taken ?Type lidocaine 5 % topical patch 3 patch topical DAILY #90 ea 09/02/24 Unknown Rx pantoprazole 40 mg tablet,delayed 40 mg PO BID #60 tab s 09/02/24 Unknown Rx release rifaximin 550 mg tablet (Xifaxan) 550 mg PO BID #60 ta bs 09/02/24 Unknown Rx cyclobenzaprine 5 mg tablet 5 mg PO TID PRN muscle spa sm #0 09/14/24 Unknown Rx tabs insulin lispro 100 unit/mL See Protocol subcut ACHS #0 mL 09/14/24 Unknown Rx subcutaneous pen (Humalog KwikPen (U-100) Insulin) acetaminophen 500 mg tablet 1,000 mg PO Q8 PRN fever o r pain 10/28/24 Unknown History calcium 500 mg (as 1 tab PO DAILY 10/28/24 Unkn own History carbonate)-vitamin D3 5 mcg (200 unit) tablet (Oyster Shell Calcium-Vitamin D3) folic acid 1 mg tablet 1 mg PO DAILY 10/28/24 Unkno wn History furosemide 40 mg tablet 40 mg PO DAILY 10/28/24 Unkn own History ibuprofen 800 mg tablet 800 mg PO TID PRN PRN fever or pain 10/28/24 Unknown History Allergy/AdvReac Type Severity Reaction Status Date / Time No Known Allergies Allergy Verified 09/04/24 21:19 Family History Mother Heart disease Hypertension CAD (coronary artery disease) Myocardial infarction Father Hypertension Heart disease Heart failure Surgical History History of tonsillectomy and adenoidectomy Social History household members: significant other Smoking Status: Former smoker how long ago did patient quit smoking: Quit ~ 3-4 months prior (fall 2023), smoked 1.5 ppd since teen until quit. alcohol intake: never substance use type: does not use Physical Exam Const alert and oriented x3 General Appearance: cooperative HEENT normocephalic and head/scalp atraumatic Eyes PERRL and EOMs intact bilaterally Neck supple, no JVD and no carotid bruits Resp normal respiratory effort, normal air movement and clear to auscultation bilaterally Cardio regular rate and no murmurs GI normal to inspection, nondistended, normoactive bowel sounds and soft to palpation Extremity normal capillary refill General Extremity: no tenderness to palpation of joints or extremities; Negativefor edema Skin no rashes or lesions noted and no wounds General Skin Exam: no breakdown Neuro CN's II-XII intact bilaterally Psych affect normal Appearance: appropriate Lab / Micro Data 10/28/24 18:45 10/29/24 09:00 Labs: Laboratory Results - last 24 hr 10/28/24 18:45: WBC 22.9 H, RBC 4.09 L, Hgb 12.7 L, Hct 37.3 L, MCV 91.2, MCH 31.1, MCHC 34.0, RDW Std Deviation 62.7 H, RDW Coeff of Francis 19.1 H, Plt Count 142 L, MPV 12.0, Immature Gran % (Auto) 1.400 H, Neut % (Auto) 83.0 H, Lymph % (Auto) 5.6 L, Bonneville % (Auto) 8.4, Eos % (Auto) 1.4, Baso % (Auto) 0.2, Absolute Neuts (auto) 19.0 H, Absolute Lymphs (auto) 1.28, Nucleated RBC % 0, Differential Comment SEE COMMENT, Diff Path Review May foll, Platelet Estimate ADEQUATE, RBC Morphology N CHROM, Anisocytosis RARE, Macrocytosis RARE, Ovalocytes RARE, Sodium 128 L, Potassium 4.5, Chloride 98, Carbon Dioxide 12.4 L, Anion Gap 17 H, BUN 25 H, Creatinine 1.33 H, Est GFR (MDRD) Non-Af 62, BUN/Creatinine Ratio 18.8, Glucose 338 H, Hemoglobin A1c 6.7, Lactic Acid 4.0 H*, Calcium 9.2, Total Bilirubin 1.86 H, AST 48 H, ALT 23, Alkaline Phosphatase 274 H, Total Protein 5.9, Albumin 2.5 L, Globulin 3.4, Albumin/Globulin Ratio 0.7 L, Lipase 45 10/28/24 19:45: Urine Color Red, Urine Clarity Cloudy, Urine pH 6.5, Ur SpecificGravity 1.015, Urine Protein 500 H, Urine Glucose (UA) 50 H, Urine Ketones 5 H, Urine Occult Blood 250 H, Urine Nitrite Negative, Urine Bilirubin 1 H, Urine Urobilinogen Normal, Ur Leukocyte Esterase 500 H, Urine RBC > 100 SEEN, Urine WBC >100 SEEN, Ur Squamous Epith Cells 5-10 SEEN, Amorphous Sediment 1+ URATE, Urine Bacteria 1+, Urine Mucus 0 SEEN, Urine Osmolality 484 03/28/25 02:00: Serum Osmolality 292, Triglycerides 83, Cholesterol 132, LDL Cholesterol, Calc 83, VLDL Cholesterol 17, HDL Cholesterol 33 L, Cholesterol/HDLRatio 4.04 Rhythm Strip Rhythm Strip: Sinus Rhythm Rate: 83 Ectopy: None Imaging Radiology Impression Abdomen/Pelvis CT 10/28/24 18:35 IMPRESSION: 1. No acute abdominopelvic finding. 2. Findings of liver cirrhosis with portal hypertension including splenomegaly, large varices and portal colopathy. No ascites. 3. Slight interval progression of the T10 and T11 vertebral body compression fracture deformities. Reading Location: [id number] 10/29/24 1032 <Electronically signed by Foster Rascon MD> Cosigner Signature (if applicable): CC: No Primary Care Physician~ Signed [facility] Work Phone: [phone]) [phone] Consult note Author Bola Meraz [facility] Note Date/Time October 29, 2024 10: 24am [facility] Medical Records Department [address] [place] [address] Consultation - General Internist And Physician Leader 10/29/24 0744 MR#: [id number] Acct: [id number] Name: FRANKLIN ARCHULETA Rep #:[id number] : 1965 59 From: Bola Meraz DO PCP: Care Physician,No Primary Status :ADM IN Location: ICU ICU02-1 Assessment & Plan Assessment/Plan (1) Sepsis: QUALIFIERS: Sepsis acute organ dysfunction status: with acute organ dysfunction Sepsis type: sepsis due to unspecified organism Severe sepsis acute organ dysfunction type: unspecified Severe sepsis shock status: with septic shock Qualified Code(s): A41.9 - Sepsis, unspecified organism; R65.21 - Severe sepsis with septic shock PLAN: Plan RECOMMENDATIONS: 1. Continue gentle IV fluid hydration. 2. Empiric broad-spectrum antimicrobials, pending culture results. 3. Continue scheduled midodrine. 4. Urology consultation pending. 5. Encourage incentive spirometer use and mobilize patient as tolerated. 6. Initiate sliding scale insulin coverage once diet is advanced. IMPRESSIONS: 1. Sepsis The patient presented with sepsis due to probable urinary tract source of infection with acute sepsis related organ dysfunction as evidenced by hypotension and lactic acidemia. The patient did receive supplemental IV fluid hydration and has remained hemodynamically stable, without the need for vasopressor support. Given the patient's complicated urologic history, consultation was placed to urology for further evaluation. The patient will remain on empiric broad-spectrum antimicrobials. Scheduled midodrine will be continued. 2. History of BOYER cirrhosis/chronic hypotension/tobacco dependency in remission/diabetes mellitus/anemia and thrombocytopenia Complicates care, management, recovery and prognosis. Continue supportive care as noted above. If no form of intervention is planned by urology, the patient'sdiet can be advanced and sliding scale insulin coverage initiated. This note was generated with [employer] dictation software. It may contain incorrectwords, spelling, and punctuation that were not noted in checking the note beforesigning. HPI Consult Data Date of Consult: 10/29/24 HPI Narrative Reason for Consultation: Sepsis HPI Narrative: The patient is a 59-year-old male, with a history as outlined below, who presented to the emergency department via EMS on October 28 with complaints of abdominal and back pain. The patient has a known medical history that includes chronic tobacco dependency, in remission, diabetes mellitus, BOYER cirrhosis, chronic back pain and chronic hypotension on midodrine. The patient was last hospitalized in September 2024 with cystitis in the setting of a left-sided staghorn calculus that required cystoscopy and stent placement along with MRSE bacteremia and acute on chronic back pain. On presentation to the emergency department, the patient was documented to be afebrile with a presenting blood pressure of 81/55 mmHg. The patient was maintaining appropriate oxygen saturations on room air. Laboratory evaluation was notable for a white blood cell count of 23,000. Hemoglobin and platelet count were stable. Chemistry profile was notable for a sodium of 128, anion gapof 17, BUN of 25 and creatinine of 1.3. Lactate was elevated at 4.0. Lipase was within normal limits. Urine analysis was positive for leukocyte esterase and 1+ urine bacteria. CT abdomen/pelvis demonstrated a cirrhotic appearing liver with dystrophic calcifications within the prostate. The patient received supplemental IV fluid hydration and was initiated on antimicrobial therapy. He was subsequently admitted to the medical intensive care unit for further management. This morning, the patient is resting comfortably in bed. He denied having experienced any recent diarrhea. He has remained hemodynamically stable, without the need for vasopressor support. [facility] Medical History Chronic hypotension Obesity (BMI 30-39.9) Chronic back pain ISABEL (acute kidney injury) Hypotension Hepatic encephalopathy Hyperbilirubinemia 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) HLD (hyperlipidemia) HTN (hypertension) Thrombocytopenia Chronic anemia Former tobacco use Diabetes mellitus, type 2 ABBY on CPAP Back pain Home Medications ?Medication ?Instructions ?Recorded ?Last Taken ?Type lidocaine 5 % topical patch 3 patch topical DAILY #90 ea 09/02/24 Unknown Rx pantoprazole 40 mg tablet,delayed 40 mg PO BID #60 tab s 09/02/24 Unknown Rx release rifaximin 550 mg tablet (Xifaxan) 550 mg PO BID #60 ta bs 09/02/24 Unknown Rx cyclobenzaprine 5 mg tablet 5 mg PO TID PRN muscle spa sm #0 09/14/24 Unknown Rx tabs insulin lispro 100 unit/mL See Protocol subcut ACHS #0 mL 09/14/24 Unknown Rx subcutaneous pen (Humalog KwikPen (U-100) Insulin) acetaminophen 500 mg tablet 1,000 mg PO Q8 PRN fever o r pain 10/28/24 Unknown History calcium 500 mg (as 1 tab PO DAILY 10/28/24 Unkn own History carbonate)-vitamin D3 5 mcg (200 unit) tablet (Oyster Shell Calcium-Vitamin D3) folic acid 1 mg tablet 1 mg PO DAILY 10/28/24 Unkno wn History furosemide 40 mg tablet 40 mg PO DAILY 10/28/24 Unkn own History ibuprofen 800 mg tablet 800 mg PO TID PRN PRN fever or pain 10/28/24 Unknown History Allergy/AdvReac Type Severity Reaction Status Date / Time No Known Allergies Allergy Verified 09/04/24 21:19 Family History Mother Heart disease Hypertension CAD (coronary artery disease) Myocardial infarction Father Hypertension Heart disease Heart failure Surgical History History of tonsillectomy and adenoidectomy Social History household members: significant other Smoking Status: Former smoker how long ago did patient quit smoking: Quit ~ 3-4 months prior (fall 2023), smoked 1.5 ppd since teen until quit. alcohol intake: never substance use type: does not use ROS ROS Narrative 10 systems were reviewed with pertinent positives as noted in the HPI above. Physical Exam Const alert and no apparent distress General Appearance: cooperative HEENT normocephalic and head/scalp atraumatic HEENT Narrative: Dry mucous membranes Eyes EOMs intact bilaterally and conjunctivae normal Neck supple General: trachea midline Chest inspection of chest normal Resp normal respiratory effort Auscultation: Negative for rales, rhonchi or wheezes Cardio regular rate and regular rhythm GI soft to palpation and non-tender Extremity no clubbing, cyanosis or edema Skin no rashes or lesions noted Neuro CN's II-XII intact bilaterally, moves all extremities and no focal motor deficits Psych Mood & Affect: flat affect Lab / Micro Data 10/28/24 18:45 10/29/24 09:00 Labs: Laboratory Results - last 24 hr 10/28/24 18:45: WBC 22.9 H, RBC 4.09 L, Hgb 12.7 L, Hct 37.3 L, MCV 91.2, MCH 31.1, MCHC 34.0, RDW Std Deviation 62.7 H, RDW Coeff of Francis 19.1 H, Plt Count 142 L, MPV 12.0, Immature Gran % (Auto) 1.400 H, Neut % (Auto) 83.0 H, Lymph % (Auto) 5.6 L, Bon[place]ville % (Auto) 8.4, Eos % (Auto) 1.4, Baso % (Auto) 0.2, Absolute Neuts (auto) 19.0 H, Absolute Lymphs (auto) 1.28, Nucleated RBC % 0, Differential Comment SEE COMMENT, Diff Path Review May foll, Platelet Estimate ADEQUATE, RBC Morphology N CHROM, Anisocytosis RARE, Macrocytosis RARE, Ovalocytes RARE, Sodium 128 L, Potassium 4.5, Chloride 98, Carbon Dioxide 12.4 L, Anion Gap 17 H, BUN 25 H, Creatinine 1.33 H, Est GFR (MDRD) Non-Af 62, BUN/Creatinine Ratio 18.8, Glucose 338 H, Hemoglobin A1c 6.7, Lactic Acid 4.0 H*, Calcium 9.2, Total Bilirubin 1.86 H, AST 48 H, ALT 23, Alkaline Phosphatase 274 H, Total Protein 5.9, Albumin 2.5 L, Globulin 3.4, Albumin/Globulin Ratio 0.7 L, Lipase 45 10/28/24 19:45: Urine Color Red, Urine Clarity Cloudy, Urine pH 6.5, Ur SpecificGravity 1.015, Urine Protein 500 H, Urine Glucose (UA) 50 H, Urine Ketones 5 H, Urine Occult Blood 250 H, Urine Nitrite Negative, Urine Bilirubin 1 H, Urine Urobilinogen Normal, Ur Leukocyte Esterase 500 H, Urine RBC > 100 SEEN, Urine WBC >100 SEEN, Ur Squamous Epith Cells 5-10 SEEN, Amorphous Sediment 1+ URATE, Urine Bacteria 1+, Urine Mucus 0 SEEN, Urine Osmolality 484 10/29/24 02:00: Serum Osmolality 292, Triglycerides 83, Cholesterol 132, LDL Cholesterol, Calc 83, VLDL Cholesterol 17, HDL Cholesterol 33 L, Cholesterol/HDLRatio 4.04 Rhythm Strip Rhythm Strip: Sinus Rhythm Rate: 83 Ectopy: None Imaging Radiology Impression Abdomen/Pelvis CT 10/28/24 18:35 IMPRESSION: 1. No acute abdominopelvic finding. 2. Findings of liver cirrhosis with portal hypertension including splenomegaly, large varices and portal colopathy. No ascites. 3. Slight interval progression of the T10 and T11 vertebral body compression fracture deformities. Reading Location: [facility] Charges/Coding Visit Charges Inpatient E&M: 32580 Init Hosp L3 10/29/24 1024 <Electronically signed by Bola Meraz DO> Cosigner Signature (if applicable): CC: No Primary Care Physician~ Signed [facility] Work Phone: [phone]) 885-156503-28-2025 [facility] History and physical note Author Hill Wright [facility] Note Date/Time October 29, 2024 6:4 7am [facility] Medical Records Department [address] [place] [address] H&P Exam - Hospitalist 10/29/24 0033 MR#: [id number] Acct: [id number] Name: FRANKLIN ARCHULETA Rep #:[id number] : 1965 59 From: Hill Luna DO PCP: Care Physician,No Primary Status :ADM IN Location: ICU ICU02-1 HPI - General General Date of Admission: 10/29/24 Date of Service: 10/29/24 Chief Complaint: Abdominal, Back Pain and Diarrhea. HPI Narrative FRANKLIN ARCHULETA, is a 59 M with a past medical history of chronic hypotension; previously on midodrine 3 times daily, former tobacco abuse (quit 2023), obesity; with BMI of 30.4 this admission, ABBY; on CPAP, DM-2; of unknown controlon insulin lispro AC/HS, history of nonalcoholic cirrhotic liver disease, chronic anemia/thrombocytopenia; presumed to be due to underlying liver disease,OA; with chronic back pain, history of mechanical fall on August 21, 2024 with a ED visit at that time showing acute on chronic lumbar spine discomfort with otherwise unremarkable ED evaluation and admission here from August 29, 2024 toSeptember 02, 2024 with patient diagnosed with [id number] hypotension in thesetting of acute hepatic encephalopathy with hyperammonemia secondary to underlying chronic nonalcoholic liver cirrhosis with hyperbilirubinemia in addition to suspected ISABEL in the setting of CKD; of uncertain stage and shock attributed to hypovolemia with discharge summary revealing elevated creatinine of 5.63 mg/dL and BUN was 76 mg/dL with ensuing nephrology consultation which mentioned Left Staghorn Calculus with patient then readmitted here on September 05, 2024 to September 14, 2024 when he underwent cystoscopy with Left ureteral stent placement by Dr. Rascon of urology with plan for laser lithotripsy once infection cleared with patient completing a course of IV ceftriaxone with Left ureteral stent still in place along with 1/2 blood cultures returning positive for MRSA (with patient treated with IV vancomycin until September 11, 2024) with records showing he underwent outpatient ultrasound-guided paracentesis on September 29, 2024 with ~4.5L of yellow-colored fluid removed who once again presents to [facility] ER complaining of abdominal pain, back pain and diarrhea. Mr. Archuleta is a very limited historian - but he reports his symptoms began approximately 2 days prior to admission with the gradual-onset of progressively worsening abdominal pain that was generalized but primarily focused in the epigastrium. He describes the discomfort as being like a 'hunger pain' that wasinitially moderate and intermittent but then became severe. He then developed nonbloody diarrhea and an acute worsening of his chronic back pain. He denies associated fever, chills, visual changes, runny nose, sore throat, ear pain, chest pain, palpitations, heart racing, SOB, headache or dysuria. In the ER he as noted to have Severe Leukocytosis of 22.9K; with 1.4% Left-shift, Lactic Acidosis of 4 mmol/L all present on admission with Hypotension of 81/55 mmHg noted shortly after admission with a UA positive for Acute Cystitis; with hematuria consistent with Sepsis with Septic Shock with corresponding CT evidence of stable Left double-J stent with Large Dystrophic Calcifications within the Left renal pelvis, with no evidence of hydronephrosis in addition to findings of cirrhosis with protal hypertension including splenomegaly, large varices and portal colopathy, without ascites complicated by Diarrhea with clinical evidence of Abdominal Pain plus AE of Chronic Back Pain and additional laboratory evidence of Hyponatremia of 128 mmol/L present on admission. He was then admitted to the ICU for treatment under the Sepsis protocol for a stay thatis expected to extend beyond 2 midnights. [facility] Medical History Chronic hypotension Obesity (BMI 30-39.9) Chronic back pain ISABEL (acute kidney injury) Hypotension Hepatic encephalopathy Hyperbilirubinemia 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) HLD (hyperlipidemia) HTN (hypertension) Thrombocytopenia Chronic anemia Former tobacco use Diabetes mellitus, type 2 ABBY on CPAP Back pain Home Medications ?Medication ?Instructions ?Recorded ?Last Taken ?Type lidocaine 5 % topical patch 3 patch topical DAILY #90 ea 09/02/24 Unknown Rx pantoprazole 40 mg tablet,delayed 40 mg PO BID #60 tab s 09/02/24 Unknown Rx release rifaximin 550 mg tablet (Xifaxan) 550 mg PO BID #60 ta bs 09/02/24 Unknown Rx cyclobenzaprine 5 mg tablet 5 mg PO TID PRN muscle spa sm #0 09/14/24 Unknown Rx tabs insulin lispro 100 unit/mL See Protocol subcut ACHS #0 mL 09/14/24 Unknown Rx subcutaneous pen (Humalog KwikPen (U-100) Insulin) acetaminophen 500 mg tablet 1,000 mg PO Q8 PRN fever o r pain 10/28/24 Unknown History calcium 500 mg (as 1 tab PO DAILY 10/28/24 Unkn own History carbonate)-vitamin D3 5 mcg (200 unit) tablet (Oyster Shell Calcium-Vitamin D3) folic acid 1 mg tablet 1 mg PO DAILY 10/28/24 Unkno wn History furosemide 40 mg tablet 40 mg PO DAILY 10/28/24 Unkn own History ibuprofen 800 mg tablet 800 mg PO TID PRN PRN fever or pain 10/28/24 Unknown History Allergy/AdvReac Type Severity Reaction Status Date / Time No Known Allergies Allergy Verified 09/04/24 21:19 Family History Mother Heart disease Hypertension CAD (coronary artery disease) Myocardial infarction Father Hypertension Heart disease Heart failure Surgical History History of tonsillectomy and adenoidectomy Social History household members: significant other Smoking Status: Former smoker how long ago did patient quit smoking: Quit ~ 3-4 months prior (fall 2023), smoked 1.5 ppd since teen until quit. alcohol intake: never substance use type: does not use ROS ROS Narrative Review of Systems: Constitutional: Vital Signs Vital Signs Vital Signs: 10/28/24 17:13 10/28/24 17:25 10/28/24 21:43 Temperature 97.6 F L Temperature Source Temporal Pulse Rate 85 84 84 Respiratory Rate 16 14 18 Blood Pressure 81/55 L 92/60 100/64 Blood Pressure Mean 63 70 76 Pulse Ox 100 95 95 Oxygen Delivery Method Room Air Room Air Room Air Weight Weight: 205 lb 4.006 oz Body Mass Index (BMI) 30.4 Physical Exam Const alert, oriented x3, no apparent distress and average body habitus Constitutional Narrative: Patient has chronically ill appearance. General Appearance: cooperative Orientation / Consciousness: lethargic HEENT normocephalic, head/scalp atraumatic and hearing grossly normal bilaterally HEENT Narrative: Mucous membranes dry. Eyes PERRL and EOMs intact bilaterally Neck no lymphadenopathy and supple Resp normal respiratory effort, no retractions, no use of accessory muscles and clearto auscultation bilaterally Cardio regular rate and regular rhythm GI normal to inspection, nondistended, normoactive bowel sounds, soft to palpation,non-tender and non-distended GI Narrative: Small ascites noted with chronic nonreducible ventral hernia. Extremity normal to inspection, full ROM and no clubbing, cyanosis or edema Skin Skin Narrative: Patient has no evidence of rash, abscess, wounds or jaundice. Neuro oriented x3, CN's II-XII intact bilaterally, moves all extremities and no focal motor deficits Sensorium / Orientation: awake, alert, oriented to person, oriented to place andoriented to time Speech: speech normal Psych Mood & Affect: depressed Results Medical Records Data Attestation: I reviewed the patient's medical records Lab / Micro Data Attestation: I reviewed the patient's lab results. 10/28/24 18:45 10/28/24 18:45 Labs: Laboratory Results - last 24 hr 10/28/24 18:45: WBC 22.9 H, RBC 4.09 L, Hgb 12.7 L, Hct 37.3 L, MCV 91.2, MCH 31.1, MCHC 34.0, RDW Std Deviation 62.7 H, RDW Coeff of Francis 19.1 H, Plt Count 142 L, MPV 12.0, Immature Gran % (Auto) 1.400 H, Neut % (Auto) 83.0 H, Lymph % (Auto) 5.6 L, [place] % (Auto) 8.4, Eos % (Auto) 1.4, Baso % (Auto) 0.2, Absolute Neuts (auto) 19.0 H, Absolute Lymphs (auto) 1.28, Nucleated RBC % 0, Differential Comment SEE COMMENT, Diff Path Review May foll, Platelet Estimate ADEQUATE, RBC Morphology N CHROM, Anisocytosis RARE, Macrocytosis RARE, Ovalocytes RARE, Sodium 128 L, Potassium 4.5, Chloride 98, Carbon Dioxide 12.4 L, Anion Gap 17 H, BUN 25 H, Creatinine 1.33 H, Est GFR (MDRD) Non-Af 62, BUN/Creatinine Ratio 18.8, Glucose 338 H, Lactic Acid 4.0 H*, Calcium 9.2, TotalBilirubin 1.86 H, AST 48 H, ALT 23, Alkaline Phosphatase 274 H, Total Protein 5.9, Albumin 2.5 L, Globulin 3.4, Albumin/Globulin Ratio 0.7 L, Lipase 45 10/28/24 19:45: Urine Color Red, Urine Clarity Cloudy, Urine pH 6.5, Ur SpecificGravity 1.015, Urine Protein 500 H, Urine Glucose (UA) 50 H, Urine Ketones 5 H, Urine Occult Blood 250 H, Urine Nitrite Negative, Urine Bilirubin 1 H, Urine Urobilinogen Normal, Ur Leukocyte Esterase 500 H, Urine RBC > 100 SEEN, Urine WBC >100 SEEN, Ur Squamous Epith Cells 5-10 SEEN, Amorphous Sediment 1+ URATE, Urine Bacteria 1+, Urine Mucus 0 SEEN Rhythm Strip Rhythm Strip: Sinus Rhythm Rate: 83 Ectopy: None Imaging Radiology Impression Abdomen/Pelvis CT 10/28/24 18:35 IMPRESSION: 1. No acute abdominopelvic finding. 2. Findings of liver cirrhosis with portal hypertension including splenomegaly, large varices and portal colopathy. No ascites. 3. Slight interval progression of the T10 and T11 vertebral body compression fracture deformities. Reading Location: [facility] Assessment & Plan Assessment/Plan (1) Sepsis: QUALIFIERS: Sepsis acute organ dysfunction status: with acute organ dysfunction Sepsis type: sepsis due to unspecified organism Severe sepsis acute organ dysfunction type: unspecified Severe sepsis shock status: with septic shock Qualified Code(s): A41.9 - Sepsis, unspecified organism; R65.21 - Severe sepsis with septic shock (2) Acute hypotension: (3) Leukocytosis: QUALIFIERS: Leukocytosis type: unspecified Qualified Code(s): D72.829 - Elevated white blood cell count, unspecified (4) Acidosis, lactic: (5) Acute UTI: (6) History of uric acid staghorn calculus: (7) Diarrhea: QUALIFIERS: Diarrhea type: presumed infectious Qualified Code(s):R19.7 - Diarrhea, unspecified (8) Chronic abdominal pain: (9) Chronic back pain: QUALIFIERS: Back pain laterality: unspecified Back pain location:back pain in unspecified location Qualified Code(s): M54.9 - Dorsalgia, unspecified; G89.29 - Other chronic pain (10) Hyponatremia: (11) Obesity (BMI 30.0-34.9): PLAN: Plan 1. Severe Leukocytosis of 22.9K; with 1.4% Left-shift, Lactic Acidosis of 4 mmol/L all present on admission with Hypotension of 81/55 mmHg noted shortly after admission with a UA positive for Acute Cystitis; with hematuria consistentwith Sepsis with Septic Shock with corresponding CT evidence of stable Left double-J stent with Large Dystrophic Calcifications within the Left renal pelvis, with no evidence of hydronephrosis in addition to findings of cirrhosis with protal hypertension including splenomegaly, large varices and portal colopathy, without ascites - Admit to ICU for treatment under the Sepsis protocol. Stop IVceftriaxone and begin treatment with IV piperacillin-tazobactam and IV vancomycin and await culture and sensitivity data. Give acetaminophen prn for [id number] (level 1-5/10) pain or fever. Give morphine IV prn for severe (level 6-10/10) pain. Give pantoprazole 40 mg IV daily for GI prophylaxis givenhis critical illness. Give ondansetron IV prn for nausea and vomiting. Give NSIVF plus IV Albumin x 1 in addition to restarting his midodrine to keep MAP > 65mmHg - but if blood pressure drops in spite of these measures we will start Levophed drip. Check 8:00 AM cortisol to evaluate for possible underlying adrenal insufficiency. We will consult urology to see this patient on rounds inthe AM for this recurrent infection with help appreciated in advance. Finally, we will consult housekeeping cleaner to see this patient on-rounds in the AM for further recommendations with help appreciated in advance. 2. Admission here from August 29, 2024 to September 02, 2024 with patient diagnosed with [id number] hypotension in the setting of acute hepatic encephalopathy with hyperammonemia secondary to underlying chronic nonalcoholic liver cirrhosis with hyperbilirubinemia in addition to suspected ISABEL in the setting of CKD; of uncertain stage and shock attributed to hypovolemia with discharge summary revealing elevated creatinine of 5.63 mg/dL and BUN was 76 mg/dL with ensuing nephrology consultation which mentioned Left Staghorn Calculus with patient then readmitted here on September 05, 2024 to September 14, 2024 when he underwent cystoscopy with Left ureteral stent placement by Dr. Rascon of urology with plan for laser lithotripsy once infection cleared with patient completing a course of IV ceftriaxone with Left ureteral stent still in place along with 1/2 blood cultures returning positive for MRSA (with patient treated with IV vancomycin until September 11, 2024) complicating #1 - Noted. 3. Nonbloody Diarrhea compounding #1 & #2 - Place on enteric precautions and check stool studies for presumed infectious cause until proven otherwise. 4. Abdominal Pain plus AE of Chronic Back Pain attributable to #1 - #3 - We will follow pain regimen and scale outlined in #1. 5. Hyponatremia of 128 mmol/L present on admission (down from 136 mmol/L on September 12, 2024) adding to the medical complexity of #1 - #4 - Give NS IVF and then recheck level in AM to confirm improvement. Check serum and urine osmolality. 6. History of nonalcoholic cirrhotic liver disease amplifying the pathology of #1 - #5 - Noted with mild hyperbilirubinemia of 1.83 mg/dL, with AST 48 U/L, ALT23 U/L and Alkaline Phosphatase 274 U/L all present on admission - but improved since his recent previous admission. He underwent outpatient ultrasound-guided paracentesis on September 29, 2024 with ~4.5L of yellow-colored fluid removed with no ascites on CT this admission. Check CMP daily to follow trend. 7. Obesity; with BMI of 30.4 this admission plus ABBY; on CPAP adding to the burden of disease outlined from #1 - #6 - Weight loss will be recommended. Resume nocturnal CPAP as before. Check TSH. This complicates his case and may hamper recovery. 8. Chronic hypotension; previously on midodrine 3 times daily - Midodrine restarted as outlined in #1. 9. Former tobacco abuse (quit 2023) - Noted. 10. DM-2; of unknown control on insulin lispro AC/HS - Keep NPO for now. CheckFSBS q. 6 hours plus SSI. Check HgbA1c to objectively evaluate quality of diabetic control. 11. Chronic anemia/thrombocytopenia; presumed to be due to underlying liver disease - Stable with hemoglobin of 12.7g/dL and platelet count of 142K present on admission. 12. History of mechanical fall on August 21, 2024 with a ED visit at that timeshowing acute on chronic lumbar spine discomfort with otherwise unremarkable ED evaluation - Noted for the sake of completeness. 13. DVT/GI prophylaxis - Lovenox 30 mg sq daily plus SCD's. Pantoprazole 40 mgIV daily. Total time: Approximately (but not less than) 75 minutes. Sepsis Attestation Sepsis Alert: Yes Sepsis Attestation: Agree w/Sepsis Date exam was performed: 10/29/24 Time exam was performed: 01:00 Possible Source of Sepsis: GI tract/intra-abdominal and Genitourinary Sepsis Organ Dysfunction Criteria Present: SBP < 90 mmHg or MAP < 65 mmHg and Lactic Acid > 2 mmol/L Fluid Resuscitation Fluid resuscitation indicated?: Yes Fluid Resuscitation ordered: 30 ml/kg fluid bolus ordered Amount of fluid ordered: 2 Sepsis Note Date exam was performed: 10/29/24 Time exam was performed: 05:00 Sepsis Attestation: Sepsis re-evaluation was performed Response to fluids: Fluid responsive hypotension Charges/Coding Visit Charges Inpatient E&M: 56355 Init Hosp L3 10/29/24 0647 <Electronically signed by Hill Caro DO> Cosigner Signature (if applicable): CC: Dr. Hill Caro DO; No Primary Care Physician~ Signed [facility] Work Phone: 1(128) 385-354003-28-2025 Consult note Author Ale Renee [facility] Note Date/Time October 29, 2024 3:3 4am [facility] Medical Records Department [address] [place] [id number] Pharmacokinetic/Renal -Consult 10/29/24316 MR#: [id number] Acct: [id number] Name: GEREMIASFRANKLIN CARMELA Rep #:[id number] : 1965 59 From: Ale Renee PCP: Care Physician,No Primary Status :ADM IN Y Location: ICU ICU02-1 Consult Antibiotic Management Pharmacy has been consulted to manage selected antibiotic: Vancomycin Type of Intervention Type of Consult: New start Suspected Infection Suspected Infection: Sepsis Labs Labs: Sodium 128 mmol/L (133-145) L 10/28/24 18:45 Potassium 4.5 mmol/L (3.3-5.1) 10/28/24 18:45 Chloride 98 mmol/L (98-108) 10/28/24 18:45 Carbon Dioxide 12.4 mmol/L (21.0-32.0) L 10/28/24 18:45 Anion Gap 17 (5-15) H 10/28/24 18:45 BUN 25 mg/dL (4-19) H 10/28/24 18:45 Creatinine 1.33 mg/dL (0.70-1.20) H 10/28/24 18:45 Est GFR (MDRD) Non-Af 62 (>60) 10/28/24 18:45 BUN/Creatinine Ratio 18.8 RATIO (10-20) 10/28/24 18:45 Glucose 338 mg/dL (70-99) H 10/28/24 18:45 Estimated Creatinine Clearance Estimated Creatinine Clearance: 67.3 Goal Trough Goal Trough: 15-20 mcg/mL Pharmacy Plan for Drug Dosing Pharmacy Plan for Drug Dosing: NEW START IV VANCOMYCIN Consulting Physician: Dr. Caro Indication: Sepsis Goal Trough: 15-20 SrCr: 1.33 CrCl: 67.3 ml/min Comments: Loading dose 2000mg x1 dose given @ 02:42 10/29/24 Vancomycin Dose: 1000mg Q12H to start @ 15:00 10/29/24 Pending Level: Vancomycin trough @ 14:30 10/30/24 Pharmacy Service will continue to monitor and adjust dosing as required. Follow-Up Labs Follow-Up Labs: Trough: Vancomycin (10/30/24 @ 14:30) 10/29/248 <Electronically signed by Ale Renee> Date _ Ale Renee 10/29/24 033 <Electronically signed by Hill Stiles DO> Cosigner Signature (if applicable): Date Hill Caro DO CC: ~ Signed [facility] Work Phone: 1(254) 820-651303-28-2025 Discharge summary Author Alber Dunn [facility] Note Date/Time October 29, 2024 1:0 4am [facility] Medical Records Department [address] [place] [address] Emergency Department Summary 10/28/24 MR#: [id number] Acct: [id number] Name: FRANKLIN ARCHULETA Rep #:[id number] : 1965 59 From: Alber Dunn MD PCP: Care Physician,No Primary Status :ADM IN Location: ICU ICU02-1 HPI History of Present Illness Chief Complaint: Back Detail of Chief Complaint: Patient with acute on chronic back pain and abdominalpain. Informant: patient Associated Symptoms Associated Symptoms: Abdominal Pain; Negative for Numbness, Tingling, Radiation to Right Leg, Radiation to Left Leg or Fever Narrative Narrative: 59-year-old male very limited informant. Has a history of chronic hypotension, diabetes, anemia, cirrhosis. States he has chronic back pain. He is also complaining of abdominal pain. Denies any fall injury or trauma to his back. Denies any fever. He has had diarrhea but no nausea or vomiting. No obvious dysuria. States his abdominal pain feels like he has not eaten enough and he still hungry but he is having discomfort. States the discomfort is primarily epigastric. Denies any chest pain or shortness of breath. Patient currently has no primary care physician. Prior similar symptoms: Yes Recent Illness/Hospitalization: No PFSH PFSH Medical History Chronic hypotension Obesity (BMI 30-39.9) Chronic back pain ISABEL (acute kidney injury) Hypotension Hepatic encephalopathy Hyperbilirubinemia 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) HLD (hyperlipidemia) HTN (hypertension) Thrombocytopenia Chronic anemia Former tobacco use Diabetes mellitus, type 2 ABBY on CPAP Back pain Home Medications ?Medication ?Instructions ?Recorded ?Last Taken ?Type lidocaine 5 % topical patch 3 patch topical DAILY #90 ea 09/02/24 Unknown Rx pantoprazole 40 mg tablet,delayed 40 mg PO BID #60 tab s 09/02/24 Unknown Rx release rifaximin 550 mg tablet (Xifaxan) 550 mg PO BID #60 ta bs 09/02/24 Unknown Rx cyclobenzaprine 5 mg tablet 5 mg PO TID PRN muscle spa sm #0 09/14/24 Unknown Rx tabs insulin lispro 100 unit/mL See Protocol subcut ACHS #0 mL 09/14/24 Unknown Rx subcutaneous pen (Humalog KwikPen (U-100) Insulin) acetaminophen 500 mg tablet 1,000 mg PO Q8 PRN fever o r pain 10/28/24 Unknown History calcium 500 mg (as 1 tab PO DAILY 10/28/24 Unkn own History carbonate)-vitamin D3 5 mcg (200 unit) tablet (Oyster Shell Calcium-Vitamin D3) folic acid 1 mg tablet 1 mg PO DAILY 10/28/24 Unkno wn History furosemide 40 mg tablet 40 mg PO DAILY 10/28/24 Unkn own History ibuprofen 800 mg tablet 800 mg PO TID PRN PRN fever or pain 10/28/24 Unknown History Allergy/AdvReac Type Severity Reaction Status Date / Time No Known Allergies Allergy Verified 09/04/24 21:19 Family History Mother Heart disease Hypertension CAD (coronary artery disease) Myocardial infarction Father Hypertension Heart disease Heart failure Surgical History History of tonsillectomy and adenoidectomy Social History household members: significant other Smoking Status: Former smoker how long ago did patient quit smoking: Quit ~ 3-4 months prior (fall 2023), smoked 1.5 ppd since teen until quit. alcohol intake: never substance use type: does not use ROS ROS ED ROS Narrative Acute on chronic back pain. Abdominal pain. Diarrhea. Constitutional Constitutional ED: Denies chills or fever(s) Eyes Eyes: Denies blurry vision ENT ENT ED: Denies ear pain Cardiovascular Cardiovascular: Denies chest pain Respiratory/Chest Respiratory/Chest: Denies dyspnea Gastrointestinal Gastrointestinal: Reports abdominal pain and diarrhea; Denies constipation, melena, nausea or vomiting Genitourinary Genitourinary ED: Denies dysuria or hematuria Musculoskeletal Musculoskeletal: Reports back pain; Denies arthralgias, myalgias or neck pain Integumentary Denies abscess or Abrasions Neurologic Neurologic: Denies headache(s) Psychiatric Psychiatric: Denies anxiety Endocrine Endocrinology: Denies cold intolerance Hematologic/Lymphatic Hematologic/Lymphatic: Denies easy bleeding, easy bruising or lymphadenopathy Allergic/Immunologic Allergic/Immunologic ED: Denies mouth swelling, tongue swelling or urticaria EXAM Physical Exam Narrative Exam Narrative: 59-year-old male sitting upright in bed. There is a pressure was 81/50 5 [id number]/60 when I am in the room it is 99/62. He does not look septic or toxic. He is in no acute distress. There is no family present in room. H EENT exam pupils round reactive light. Mildly dry mucous membranes. Neck nontender no JVD. Lungs clear to auscultation bilaterally. Heart regular rhythm rate about 85 no murmur. Chest wall ribs nontender. Abdomen soft nondistended normal bowel sounds without peritoneal sign. Small ascites. Chronic ventral hernia. Does not reduce. He said that is the baseline. No peritoneal signs. Right upper right lower quadrant unremarkable. No distention. No pulsatile mass. Moving all 4 extremities. Neurologically is awake alert answering questions following commands. He is a very limited informant. Const Vital Signs: 10/28/24 17:13 10/28/24 17:25 10/28/24 21:43 Temperature 97.6 F L Temperature Source Temporal Pulse Rate 85 84 84 Respiratory Rate 16 14 18 Blood Pressure 81/55 L 92/60 100/64 Blood Pressure Mean 63 70 76 Pulse Ox 100 95 95 Oxygen Delivery Method Room Air Room Air Room Air Positive well nourished and well developed; Negative for cachectic, contracturesor unkempt General Appearance ED: well developed and NAD; Negative for unkempt, cachectic or contractures Nutritional Appearance: Negative for cachectic HEENT Reports dry mucous membranes; Denies moist mucous membranes Negative for trauma or tenderness Mouth ED: Yes dry mucous membranes Mouth: dry mucous membranes Eyes PERRL and EOMs intact bilaterally Neck no lymphadenopathy, supple and no JVD General: Negative for tenderness Thyroid: Negative for other Resp normal respiratory effort and clear to auscultation bilaterally Cardio regular rate, regular rhythm, S1 normal heart sound, S2 normal heart sound and no murmurs GI normal to inspection, nondistended, normoactive bowel sounds, soft to palpation,non-tender, non-distended and no masses GI Narrative: Ventral hernia that does not reduce but is nontender. There is no distention. Inspection: Negative for abdominal distention Palpation: Negative for tender, guarding, mass or pulsatile mass Back/Spine normal to inspection and no thoracic nor lumbar tenderness General Back: Negative for CVA tenderness Cervical Spine: Negative for cervical spine tenderness Thoracic Spine / Upper Back: Negative for paraspinal muscle tenderness Extremity normal to inspection and no clubbing, cyanosis or edema General Extremety ED: Negative for edema or tenderness General Extremity: Negative for edema Neuro oriented x3 Sensorium / Orientation: alert; Negative for confused, lethargic or stuporous Motor Exam: strength 5/5 throughout Psych mental status grossly normal Appearance: Negative for unkempt Attitude: No agitated Mood & Affect: Negative for depressed, sad or tearful Skin no rashes or lesions noted and no wounds General Skin Exam: Negative for jaundice Lesions: No lesion noted Rashes: No rashes noted Trauma: Negative for abrasion or puncture Wounds: Negative for wounds noted MDM MDM MDM Narrative Medical decision making narrative: 59-year-old male acute on chronic back pain. He will get IV fluids due to his hypotension. Possible dehydration. Screening labs for abdominal pain and CT. Multiple repeat exams. Patient has a leukocytosis which she has had in the past. He may have a UTI urine culture sent. To be started on Rocephin. Given that he is been transiently hypotensive he has an elevated white count elevated lactic acid I am going to admit him by the hospitalist on page. Patient be admitted for further evaluation for suspected sepsis. Currently he is stable at12:10 AM. Current blood pressure is 110/67. Spoke to the hospitalist. Be admitted to the ICU. He has been written for 3 L of saline. Currently his pressure stable. He is awake and alert and talking. We discussed his admission. History & Record Review Discussion w/independent historian: Patient Additional record(s) reviewed:: Prior inpatient record, Prior outpatient record,Prior ED visit and Prior labs Lab Data Attestation: I reviewed the patient's lab results. Lab results narrative: CBC shows a white count 22.9. H&H 12.7 and 37. Platelets 142,000. Electrolytes show sodium 128. Anion gap 17. BUN 25 creatinine 1.3 glucose is 338. Liver enzymes show an alk phos of 274. Total bilirubin 1.86. Lipase is normal at 45. Urinalysis shows greater than 100 red cells. Greater then 100 white cells. 5 epithelial cells. 1+ bacteria. No nitrates. Urine culture sent. Treated withRocephin. Lactic acid is 4.0. Labs: Laboratory Results - last 24 hr 10/28/24 10/28/24 18:45 19:45 WBC 22.9 H RBC 4.09 L Hgb 12.7 L Hct 37.3 L MCV 91.2 MCH 31.1 MCHC 34.0 RDW Std Deviation 62.7 H RDW Coeff of Francis 19.1 H Plt Count 142 L MPV 12.0 Immature Gran % (Auto) 1.400 H Neut % (Auto) 83.0 H Lymph % (Auto) 5.6 L Bonneville % (Auto) 8.4 Eos % (Auto) 1.4 Baso % (Auto) 0.2 Absolute Neuts (auto) 19.0 H Absolute Lymphs (auto) 1.28 Nucleated RBC % 0 Differential Comment SEE COMMENT Diff Path Review May foll Platelet Estimate ADEQUATE RBC Morphology N CHROM Anisocytosis RARE Macrocytosis RARE Ovalocytes RARE Sodium 128 L Potassium 4.5 Chloride 98 Carbon Dioxide 12.4 L Anion Gap 17 H BUN 25 H Creatinine 1.33 H Est GFR (MDRD) Non-Af 62 BUN/Creatinine Ratio 18.8 Glucose 338 H Lactic Acid 4.0 H* Calcium 9.2 Total Bilirubin 1.86 H AST 48 H ALT 23 Alkaline Phosphatase 274 H Total Protein 5.9 Albumin 2.5 L Globulin 3.4 Albumin/Globulin Ratio 0.7 L Lipase 45 Urine Color Red Urine Clarity Cloudy Urine pH 6.5 Ur Specific Jonancy 1.015 Urine Protein 500 H Urine Glucose (UA) 50 H Urine Ketones 5 H Urine Occult Blood 250 H Urine Nitrite Negative Urine Bilirubin 1 H Urine Urobilinogen Normal Ur Leukocyte Esterase 500 H Urine RBC > 100 SEEN Urine WBC >100 SEEN Ur Squamous Epith Cells 5-10 SEEN Amorphous Sediment 1+ URATE Urine Bacteria 1+ Urine Mucus 0 SEEN Radiography Diagnostic Testing: Clinical Impression(s) from Imaging Studies Abdomen/Pelvis CT 10/28/24 18:35 IMPRESSION: 1. No acute abdominopelvic finding. 2. Findings of liver cirrhosis with portal hypertension including splenomegaly, large varices and portal colopathy. No ascites. 3. Slight interval progression of the T10 and T11 vertebral body compression fracture deformities. Reading Location: [facility] Rhythm Strip Rhythm Strip: Sinus Rhythm Rate: 83 Ectopy: None EKG Initial EKG: Attestation: I personally reviewed and interpreted this EKG as follows: Interpretation: Sinus Rhythm and No Acute Injury Pattern Comments: Normal sinus rhythm rate 83 no acute signs of IL or ischemia. No dysrhythmia. 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 What to do if you have Problems For any increased pain, shortness of breath, bleeding, nausea or vomiting, chestpain, or any unexpected problems, contact your Primary Care Provider. Call [facility] ([phone]) or report to the closest Emergency Room. Call 911 if necessary. 10/29/24 0104 <Electronically signed by Alber Dunn MD> Cosigner Signature (if applicable): CC: No Primary Care Physician ~ Signed [facility] Work Phone: [phone]) 243-308903-28-2025 Discharge summary [facility] Medical Records Department [address] [place] [id number] Emergency Department Summary 10/28/24 MR#: [id number] Acct: [id number] Name: RFANKLIN ARCHULETA Rep #:[id number] : 1965 59 From: Alber Dunn MD PCP: Care Physician,No Primary Status :ADM IN Location: ICU ICU02-1 HPI History of Present Illness Chief Complaint: Back Detail of Chief Complaint: Patient with acute on chronic back pain and abdominalpain. Informant: patient Associated Symptoms Associated Symptoms: Abdominal Pain; Negative for Numbness, Tingling, Radiation to Right Leg, Radiation to Left Leg or Fever Narrative Narrative: 59-year-old male very limited informant. Has a history of chronic hypotension, diabetes, anemia, cirrhosis. States he has chronic back pain. He is also complaining of abdominal pain. Denies any fall injury or trauma to his back. Denies any fever. He has had diarrhea but no nausea or vomiting. No obvious dysuria. States his abdominal pain feels like he has not eaten enough and he still hungry but he is having discomfort. States the discomfort is primarily epigastric. Denies any chest pain or shortness of breath. Patient currently has no primary care physician. Prior similar symptoms: Yes Recent Illness/Hospitalization: No [facility] Medical History Chronic hypotension Obesity (BMI 30-39.9) Chronic back pain ISABEL (acute kidney injury) Hypotension Hepatic encephalopathy Hyperbilirubinemia 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) HLD (hyperlipidemia) HTN (hypertension) Thrombocytopenia Chronic anemia Former tobacco use Diabetes mellitus, type 2 ABBY on CPAP Back pain Home Medications ?Medication ?Instructions ?Recorded ?Last Taken ?Type lidocaine 5 % topical patch 3 patch topical DAILY #90 ea 09/02/24 Unknown Rx pantoprazole 40 mg tablet,delayed 40 mg PO BID #60 tab s 09/02/24 Unknown Rx release rifaximin 550 mg tablet (Xifaxan) 550 mg PO BID #60 ta bs 09/02/24 Unknown Rx cyclobenzaprine 5 mg tablet 5 mg PO TID PRN muscle spa sm #0 09/14/24 Unknown Rx tabs insulin lispro 100 unit/mL See Protocol subcut ACHS #0 mL 09/14/24 Unknown Rx subcutaneous pen (Humalog KwikPen (U-100) Insulin) acetaminophen 500 mg tablet 1,000 mg PO Q8 PRN fever o r pain 10/28/24 Unknown History calcium 500 mg (as 1 tab PO DAILY 10/28/24 Unkn own History carbonate)-vitamin D3 5 mcg (200 unit) tablet (Oyster Shell Calcium-Vitamin D3) folic acid 1 mg tablet 1 mg PO DAILY 10/28/24 Unkno wn History furosemide 40 mg tablet 40 mg PO DAILY 10/28/24 Unkn own History ibuprofen 800 mg tablet 800 mg PO TID PRN PRN fever or pain 10/28/24 Unknown History Allergy/AdvReac Type Severity Reaction Status Date / Time No Known Allergies Allergy Verified 09/04/24 21:19 Family History Mother Heart disease Hypertension CAD (coronary artery disease) Myocardial infarction Father Hypertension Heart disease Heart failure Surgical History History of tonsillectomy and adenoidectomy Social History household members: significant other Smoking Status: Former smoker how long ago did patient quit smoking: Quit ~ 3-4 months prior (fall 2023), smoked 1.5 ppd since teen until quit. alcohol intake: never substance use type: does not use ROS ROS ED ROS Narrative Acute on chronic back pain. Abdominal pain. Diarrhea. Constitutional Constitutional ED: Denies chills or fever(s) Eyes Eyes: Denies blurry vision ENT ENT ED: Denies ear pain Cardiovascular Cardiovascular: Denies chest pain Respiratory/Chest Respiratory/Chest: Denies dyspnea Gastrointestinal Gastrointestinal: Reports abdominal pain and diarrhea; Denies constipation, melena, nausea or vomiting Genitourinary Genitourinary ED: Denies dysuria or hematuria Musculoskeletal Musculoskeletal: Reports back pain; Denies arthralgias, myalgias or neck pain Integumentary Denies abscess or Abrasions Neurologic Neurologic: Denies headache(s) Psychiatric Psychiatric: Denies anxiety Endocrine Endocrinology: Denies cold intolerance Hematologic/Lymphatic Hematologic/Lymphatic: Denies easy bleeding, easy bruising or lymphadenopathy Allergic/Immunologic Allergic/Immunologic ED: Denies mouth swelling, tongue swelling or urticaria EXAM Physical Exam Narrative Exam Narrative: 59-year-old male sitting upright in bed. There is a pressure was 81/50 5 [id number] when I am in the room it is 99/62. He does not look septic or toxic. He is in no acute distress. There is no family present in room. H EENT exam pupils round reactive light. Mildly dry mucous membranes. Neck nontender no JVD. Lungs clear to auscultation bilaterally. Heart regular rhythm rate about 85 no murmur. Chest wall ribs nontender. Abdomen soft nondistended normal bowel sounds without peritoneal sign. Small ascites. Chronic ventral hernia. Does not reduce. He said that is the baseline. No peritoneal signs. Right upper right lower quadrant unremarkable. No distention. No pulsatile mass. Moving all 4 ext remities. Neurologically is awake alert answering questions following commands. He is a very limited informant. Const Vital Signs: 10/28/24 17:13 10/28/24 17:25 10/28/24 21:43 Temperature 97.6 F L Temperature Source Temporal Pulse Rate 85 84 84 Respiratory Rate 16 14 18 Blood Pressure 81/55 L 92/60 100/64 Blood Pressure Mean 63 70 76 Pulse Ox 100 95 95 Oxygen Delivery Method Room Air Room Air Room Air Positive well nourished and well developed; Negative for cachectic, contracturesor unkempt General Appearance ED: well developed and NAD; Negative for unkempt, cachectic or contractures Nutritional Appearance: Negative for cachectic HEENT Reports dry mucous membranes; Denies moist mucous membranes Negative for trauma or tenderness Mouth ED: Yes dry mucous membranes Mouth: dry mucous membranes Eyes PERRL and EOMs intact bilaterally Neck no lymphadenopathy, supple and no JVD General: Negative for tenderness Thyroid: Negative for other Resp normal respiratory effort and clear to auscultation bilaterally Cardio regular rate, regular rhythm, S1 normal heart sound, S2 normal heart sound and no murmurs GI normal to inspection, nondistended, normoactive bowel sounds, soft to palpation,non-tender, non-distended and no masses GI Narrative: Ventral hernia that does not reduce but is nontender. There is no distention. Inspection: Negative for abdominal distention Palpation: Negative for tender, guarding, mass or pulsatile mass Back/Spine normal to inspection and no thoracic nor lumbar tenderness General Back: Negative for CVA tenderness Cervical Spine: Negative for cervical spine tenderness Thoracic Spine / Upper Back: Negative for paraspinal muscle tenderness Extremity normal to inspection and no clubbing, cyanosis or edema General Extremety ED: Negative for edema or tenderness General Extremity: Negative for edema Neuro oriented x3 Sensorium / Orientation: alert; Negative for confused, lethargic or stuporous Motor Exam: strength 5/5 throughout Psych mental status grossly normal Appearance: Negative for unkempt Attitude: No agitated Mood & Affect: Negative for depressed, sad or tearful Skin no rashes or lesions noted and no wounds General Skin Exam: Negative for jaundice Lesions: No lesion noted Rashes: No rashes noted Trauma: Negative for abrasion or puncture Wounds: Negative for wounds noted MDM MDM MDM Narrative Medical decision making narrative: 59-year-old male acute on chronic back pain. He will get IV fluids due to his hypotension. Possibledehydration. Screening labs for abdominal pain and CT. Multiple repeat exams. Patient has a leukocytosis which she has had in the past. He may have a UTI urine culture sent. To be started on Rocephin. Given that he is been transiently hypotensive he has an elevated white count elevated lactic acid I am going to admit him by the hospitalist on page. Patient be admitted for further evaluation for suspected sepsis. Currently he is stable at12:10 AM. Curr [facility] blood pressure is 110/67. Spoke to the hospitalist. Be admitted to the ICU. He has been writtenfor 3 L of saline. Currently his pressure stable. He is awake and alert and talking. We discussed his admission. History & Record Review Discussion w/independent historian: Patient Additional record(s) reviewed:: Prior inpatient record, Prior outpatient record,Prior ED visit and Prior labs Lab Data Attestation: I reviewed the patient's lab results. Lab results narrative: CBC shows a white count 22.9. H&H 12.7 and 37. Platelets 142,000. Electrolytes show sodium 128. Anion gap 17. BUN 25 creatinine 1.3 glucose is 338. Liver enzymes show an alk phos of 274. Total bilirubin 1.86. Lipase is normal at 45. Urinalysis shows greater than 100 red cells. Greater then 100 white cells. 5 epithelial cells. 1+ bacteria. No nitrates. Urine culture sent. Treated withRocephin. Lactic acid is 4.0. Labs: Laboratory Results - last 24 hr 10/28/24 10/28/24 18:45 19:45 WBC 22.9 H RBC 4.09 L Hgb 12.7 L Hct 37.3 L MCV 91.2 MCH 31.1 MCHC 34.0 RDW Std Deviation 62.7 H RDW Coeff of Francis 19.1 H Plt Count 142 L MPV 12.0 Immature Gran % (Auto) 1.400 H Neut % (Auto) 83.0 H Lymph % (Auto) 5.6 L Bonneville % (Auto) 8.4 Eos % (Auto) 1.4 Baso % (Auto) 0.2 Absolute Neuts (auto) 19.0 H Absolute Lymphs (auto) 1.28 Nucleated RBC % 0 Differential Comment SEE COMMENT Diff Path Review May foll Platelet Estimate ADEQUATE RBC Morphology N CHROM Anisocytosis RARE Macrocytosis RARE Ovalocytes RARE Sodium 128 L Potassium 4.5 Chloride 98 Carbon Dioxide 12.4 L Anion Gap 17 H BUN 25 H Creatinine 1.33 H Est GFR (MDRD) Non-Af 62 BUN/Creatinine Ratio 18.8 Glucose 338 H Lactic Acid 4.0 H* Calcium 9.2 Total Bilirubin 1.86 H AST 48 H ALT 23 Alkaline Phosphatase 274 H Total Protein 5.9 Albumin 2.5 L Globulin 3.4 Albumin/Globulin Ratio 0.7 L Lipase 45 Urine Color Red Urine Clarity Cloudy Urine pH 6.5 Ur Specific Jonancy 1.015 Urine Protein 500 H Urine Glucose (UA) 50 H Urine Ketones 5 H Urine Occult Blood 250 H Urine Nitrite Negative Urine Bilirubin 1 H Urine Urobilinogen Normal Ur Leukocyte Esterase 500 H Urine RBC > 100 SEEN Urine WBC >100 SEEN Ur Squamous Epith Cells 5-10 SEEN Amorphous Sediment 1+ URATE Urine Bacteria 1+ Urine Mucus 0 SEEN Radiography Diagnostic Testing: Clinical Impression(s) from Imaging Studies Abdomen/Pelvis CT 10/28/24 18:35 IMPRESSION: 1. No acute abdominopelvic finding. 2. Findings of liver cirrhosis with portal hypertension including splenomegaly, large varices and portal colopathy. No ascites. 3. Slight interval progression of the T10 and T11 vertebral body compression fracture deformities. Reading Location: [facility] Rhythm Strip Rhythm Strip: Sinus Rhythm Rate: 83 Ectopy: None EKG Initial EKG: Attestation: I personally reviewed and interpreted this EKG as follows: Interpretation: Sinus Rhythm and No Acute Injury Pattern Comments: Normal sinus rhythm rate 83 no acute signs of IL or ischemia. No dysrhythmia. 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 What to do if you have Problems For any increased pain, shortness of breath, bleeding, nausea or vomiting, chestpain, or any unexpected problems, contact your Primary Care Provider. Call [facility] ([phone]) or report tothe closest Emergency Room. Call 911 if necessary. 10/29/24 0104 Cosigner Signature (if applicable): CC: No Primary Care Physician ~ Signed [facility]03-27-2025 Radiology Diagnostic study note [facility] Imaging Services [address] [place] [address] Abdomen/Pelvis W IV Cont ONLY MR#: [id number] Acct: [id number] Name: FRANKLIN ARCHULETA Rep #: [id number] : 1965 M 59 From: Cassandra Starkey MD PCP: Care Physician,No Primary Status: REG ER Study:Abdomen/Pelvis W IV Cont ONLY Date of E xam: 10/28/24 Exam# [id number] Ordering Dr: Tee Dunn MD PROCEDURE: ABDOMEN/PELVIS W IV CONT ONLY 10/28/2024 REASON FOR EXAM: 59-year-old male, abdominal pain. TECHNIQUE: Abdomen and pelvis CT with intravenous contrast. Coronal and Sagittal reconstruction series were provided. PATIENT PREPARATION: Per protocol ORAL CONTRAST TYPE: None. CONTRAST: Isovue-300 VOLUME: 100mL One or more dose reduction techniques were used (e.g., Automated exposure control, adjustment of the mA and/or kV according to patient size, use of iterative reconstruction technique. RADIATION DOSE SUMMARY: CTDlvol: 28 mGy DLP: 1200 mGycm COMPARISON: CT abdomen pelvis 09/08/2024. FINDINGS: Lung bases: Bibasilar atelectasis. The heart is normal in size with coronary artery calcifications. Liver: Stable findings of liver cirrhosis with portal hypertension including large gastrohepatic splenic and esophageal varices. The major portal veins are patent. No biliary ductal dilation. Prominent portal lymph nodes, likelyreactive. Gallbladder: Calcified stones within the gallbladder without gallbladder wall thickening or pericholecystic fluid. Spleen: Enlarged measuring 15.2 cm. Pancreas: Diffuse fatty atrophy. Adrenals: Unremarkable. Kidneys: Stable left double-J ureteral stent with large dystrophic calcifications within the left renal pelvis. No hydronephrosis. Bladder: Minimally distended. Reproductive Organs: Dystrophic calcifications within the prostate. Bowel: The bowel loops are normal in caliber with diffuse wall thickening, compatible with portal colopathy. No significant abdominopelvic ascites. No pneumoperitoneum. Normal appendix. Lymph nodes: Prominent periportal nodes, likely reactive. Vasculature: Mild calcific plaque of the aortoiliac vessels. Bones: Diffuse osseous demineralization. Slight interval progression of the T10and T11 vertebral body compression fracture deformities. Chronic left rib fracture deformity. CT/Abdomen/Pelvis W IV Cont ONLY IMPRESSION: 1. No acute abdominopelvic finding. 2. Findings of liver cirrhosis with portal hypertension including splenomegaly, large varices and portal colopathy. No ascites. 3. Slight interval progression of the T10 and T11 vertebral body compression fracture deformities. Reading Location: [id number] CC: Dr. Alber Dunn MD; No Primary Care Physician ~ Cnc Specialist: Signed [facility]03-27-2025 Discharge summary Author Alber Dunn [facility] Note Date/Time October 29, 2024 1:0 4am [facility] Medical Records Department [address] [place] [address] Emergency Department Summary 10/28/24 MR#: [id number] Acct: [id number] Name: FRANKLIN ARCHULETA Rep #:[id number] : 1965 59 From: Alber Dunn MD PCP: Care Physician,No Primary Status :ADM IN Location: ICU ICU02-1 HPI History of Present Illness Chief Complaint: Back Detail of Chief Complaint: Patient with acute on chronic back pain and abdominalpain. Informant: patient Associated Symptoms Associated Symptoms: Abdominal Pain; Negative for Numbness, Tingling, Radiation to Right Leg, Radiation to Left Leg or Fever Narrative Narrative: 59-year-old male very limited informant. Has a history of chronic hypotension, diabetes, anemia, cirrhosis. States he has chronic back pain. He is also complaining of abdominal pain. Denies any fall injury or trauma to his back. Denies any fever. He has had diarrhea but no nausea or vomiting. No obvious dysuria. States his abdominal pain feels like he has not eaten enough and he still hungry but he is having discomfort. States the discomfort is primarily epigastric. Denies any chest pain or shortness of breath. Patient currently has no primary care physician. Prior similar symptoms: Yes Recent Illness/Hospitalization: No PFSH PFSH Medical History Chronic hypotension Obesity (BMI 30-39.9) Chronic back pain ISABEL (acute kidney injury) Hypotension Hepatic encephalopathy Hyperbilirubinemia 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) HLD (hyperlipidemia) HTN (hypertension) Thrombocytopenia Chronic anemia Former tobacco use Diabetes mellitus, type 2 ABBY on CPAP Back pain Home Medications ?Medication ?Instructions ?Recorded ?Last Taken ?Type lidocaine 5 % topical patch 3 patch topical DAILY #90 ea 09/02/24 Unknown Rx pantoprazole 40 mg tablet,delayed 40 mg PO BID #60 tab s 09/02/24 Unknown Rx release rifaximin 550 mg tablet (Xifaxan) 550 mg PO BID #60 ta bs 09/02/24 Unknown Rx cyclobenzaprine 5 mg tablet 5 mg PO TID PRN muscle spa sm #0 09/14/24 Unknown Rx tabs insulin lispro 100 unit/mL See Protocol subcut ACHS #0 mL 09/14/24 Unknown Rx subcutaneous pen (Humalog KwikPen (U-100) Insulin) acetaminophen 500 mg tablet 1,000 mg PO Q8 PRN fever o r pain 10/28/24 Unknown History calcium 500 mg (as 1 tab PO DAILY 10/28/24 Unkn own History carbonate)-vitamin D3 5 mcg (200 unit) tablet (Oyster Shell Calcium-Vitamin D3) folic acid 1 mg tablet 1 mg PO DAILY 10/28/24 Unkno wn History furosemide 40 mg tablet 40 mg PO DAILY 10/28/24 Unkn own History ibuprofen 800 mg tablet 800 mg PO TID PRN PRN fever or pain 10/28/24 Unknown History Allergy/AdvReac Type Severity Reaction Status Date / Time No Known Allergies Allergy Verified 09/04/24 21:19 Family History Mother Heart disease Hypertension CAD (coronary artery disease) Myocardial infarction Father Hypertension Heart disease Heart failure Surgical History History of tonsillectomy and adenoidectomy Social History household members: significant other Smoking Status: Former smoker how long ago did patient quit smoking: Quit ~ 3-4 months prior (fall 2023), smoked 1.5 ppd since teen until quit. alcohol intake: never substance use type: does not use ROS ROS ED ROS Narrative Acute on chronic back pain. Abdominal pain. Diarrhea. Constitutional Constitutional ED: Denies chills or fever(s) Eyes Eyes: Denies blurry vision ENT ENT ED: Denies ear pain Cardiovascular Cardiovascular: Denies chest pain Respiratory/Chest Respiratory/Chest: Denies dyspnea Gastrointestinal Gastrointestinal: Reports abdominal pain and diarrhea; Denies constipation, melena, nausea or vomiting Genitourinary Genitourinary ED: Denies dysuria or hematuria Musculoskeletal Musculoskeletal: Reports back pain; Denies arthralgias, myalgias or neck pain Integumentary Denies abscess or Abrasions Neurologic Neurologic: Denies headache(s) Psychiatric Psychiatric: Denies anxiety Endocrine Endocrinology: Denies cold intolerance Hematologic/Lymphatic Hematologic/Lymphatic: Denies easy bleeding, easy bruising or lymphadenopathy Allergic/Immunologic Allergic/Immunologic ED: Denies mouth swelling, tongue swelling or urticaria EXAM Physical Exam Narrative Exam Narrative: 59-year-old male sitting upright in bed. There is a pressure was 81/50 5 mbophm84/60 when I am in the room it is 99/62. He does not look septic or toxic. He is in no acute distress. There is no family present in room. H EENT exam pupils round reactive light. Mildly dry mucous membranes. Neck nontender no JVD. Lungs clear to auscultation bilaterally. Heart regular rhythm rate about 85 no murmur. Chest wall ribs nontender. Abdomen soft nondistended normal bowel sounds without peritoneal sign. Small ascites. Chronic ventral hernia. Does not reduce. He said that is the baseline. No peritoneal signs. Right upper right lower quadrant unremarkable. No distention. No pulsatile mass. Moving all 4 extremities. Neurologically is awake alert answering questions following commands. He is a very limited informant. Const Vital Signs: 10/28/24 17:13 10/28/24 17:25 10/28/24 21:43 Temperature 97.6 F L Temperature Source Temporal Pulse Rate 85 84 84 Respiratory Rate 16 14 18 Blood Pressure 81/55 L 92/60 100/64 Blood Pressure Mean 63 70 76 Pulse Ox 100 95 95 Oxygen Delivery Method Room Air Room Air Room Air Positive well nourished and well developed; Negative for cachectic, contracturesor unkempt General Appearance ED: well developed and NAD; Negative for unkempt, cachectic or contractures Nutritional Appearance: Negative for cachectic HEENT Reports dry mucous membranes; Denies moist mucous membranes Negative for trauma or tenderness Mouth ED: Yes dry mucous membranes Mouth: dry mucous membranes Eyes PERRL and EOMs intact bilaterally Neck no lymphadenopathy, supple and no JVD General: Negative for tenderness Thyroid: Negative for other Resp normal respiratory effort and clear to auscultation bilaterally Cardio regular rate, regular rhythm, S1 normal heart sound, S2 normal heart sound and no murmurs GI normal to inspection, nondistended, normoactive bowel sounds, soft to palpation,non-tender, non-distended and no masses GI Narrative: Ventral hernia that does not reduce but is nontender. There is no distention. Inspection: Negative for abdominal distention Palpation: Negative for tender, guarding, mass or pulsatile mass Back/Spine normal to inspection and no thoracic nor lumbar tenderness General Back: Negative for CVA tenderness Cervical Spine: Negative for cervical spine tenderness Thoracic Spine / Upper Back: Negative for paraspinal muscle tenderness Extremity normal to inspection and no clubbing, cyanosis or edema General Extremety ED: Negative for edema or tenderness General Extremity: Negative for edema Neuro oriented x3 Sensorium / Orientation: alert; Negative for confused, lethargic or stuporous Motor Exam: strength 5/5 throughout Psych mental status grossly normal Appearance: Negative for unkempt Attitude: No agitated Mood & Affect: Negative for depressed, sad or tearful Skin no rashes or lesions noted and no wounds General Skin Exam: Negative for jaundice Lesions: No lesion noted Rashes: No rashes noted Trauma: Negative for abrasion or puncture Wounds: Negative for wounds noted MDM MDM MDM Narrative Medical decision making narrative: 59-year-old male acute on chronic back pain. He will get IV fluids due to his hypotension. Possible dehydration. Screening labs for abdominal pain and CT. Multiple repeat exams. Patient has a leukocytosis which she has had in the past. He may have a UTI urine culture sent. To be started on Rocephin. Given that he is been transiently hypotensive he has an elevated white count elevated lactic acid I am going to admit him by the hospitalist on page. Patient be admitted for further evaluation for suspected sepsis. Currently he is stable at12:10 AM. Current blood pressure is 110/67. Spoke to the hospitalist. Be admitted to the ICU. He has been written for 3 L of saline. Currently his pressure stable. He is awake and alert and talking. We discussed his admission. History & Record Review Discussion w/independent historian: Patient Additional record(s) reviewed:: Prior inpatient record, Prior outpatient record,Prior ED visit and Prior labs Lab Data Attestation: I reviewed the patient's lab results. Lab results narrative: CBC shows a white count 22.9. H&H 12.7 and 37. Platelets 142,000. Electrolytes show sodium 128. Anion gap 17. BUN 25 creatinine 1.3 glucose is 338. Liver enzymes show an alk phos of 274. Total bilirubin 1.86. Lipase is normal at 45. Urinalysis shows greater than 100 red cells. Greater then 100 white cells. 5 epithelial cells. 1+ bacteria. No nitrates. Urine culture sent. Treated withRocephin. Lactic acid is 4.0. Labs: Laboratory Results - last 24 hr 10/28/24 10/28/24 18:45 19:45 WBC 22.9 H RBC 4.09 L Hgb 12.7 L Hct 37.3 L MCV 91.2 MCH 31.1 MCHC 34.0 RDW Std Deviation 62.7 H RDW Coeff of Francis 19.1 H Plt Count 142 L MPV 12.0 Immature Gran % (Auto) 1.400 H Neut % (Auto) 83.0 H Lymph % (Auto) 5.6 L Bonneville % (Auto) 8.4 Eos % (Auto) 1.4 Baso % (Auto) 0.2 Absolute Neuts (auto) 19.0 H Absolute Lymphs (auto) 1.28 Nucleated RBC % 0 Differential Comment SEE COMMENT Diff Path Review May foll Platelet Estimate ADEQUATE RBC Morphology N CHROM Anisocytosis RARE Macrocytosis RARE Ovalocytes RARE Sodium 128 L Potassium 4.5 Chloride 98 Carbon Dioxide 12.4 L Anion Gap 17 H BUN 25 H Creatinine 1.33 H Est GFR (MDRD) Non-Af 62 BUN/Creatinine Ratio 18.8 Glucose 338 H Lactic Acid 4.0 H* Calcium 9.2 Total Bilirubin 1.86 H AST 48 H ALT 23 Alkaline Phosphatase 274 H Total Protein 5.9 Albumin 2.5 L Globulin 3.4 Albumin/Globulin Ratio 0.7 L Lipase 45 Urine Color Red Urine Clarity Cloudy Urine pH 6.5 Ur Specific Jonancy 1.015 Urine Protein 500 H Urine Glucose (UA) 50 H Urine Ketones 5 H Urine Occult Blood 250 H Urine Nitrite Negative Urine Bilirubin 1 H Urine Urobilinogen Normal Ur Leukocyte Esterase 500 H Urine RBC > 100 SEEN Urine WBC >100 SEEN Ur Squamous Epith Cells 5-10 SEEN Amorphous Sediment 1+ URATE Urine Bacteria 1+ Urine Mucus 0 SEEN Radiography Diagnostic Testing: Clinical Impression(s) from Imaging Studies Abdomen/Pelvis CT 10/28/24 18:35 IMPRESSION: 1. No acute abdominopelvic finding. 2. Findings of liver cirrhosis with portal hypertension including splenomegaly, large varices and portal colopathy. No ascites. 3. Slight interval progression of the T10 and T11 vertebral body compression fracture deformities. Reading Location: [facility] Rhythm Strip Rhythm Strip: Sinus Rhythm Rate: 83 Ectopy: None EKG Initial EKG: Attestation: I personally reviewed and interpreted this EKG as follows: Interpretation: Sinus Rhythm and No Acute Injury Pattern Comments: Normal sinus rhythm rate 83 no acute signs of IL or ischemia. No dysrhythmia. 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 What to do if you have Problems For any increased pain, shortness of breath, bleeding, nausea or vomiting, chestpain, or any unexpected problems, contact your Primary Care Provider. Call [facility] ([phone]) or report to the closest Emergency Room. Call 911 if necessary. 10/29/24 0104 <Electronically signed by Alber Dunn MD> Cosigner Signature (if applicable): CC: No Primary Care Physician ~ Signed [facility] Work Phone: 1([phone]) 416-391203-03-2025 Procedure note* Joey Huang DO - 10/04/2024 5:17 PM ESTAssociated Order(s): Paracentesis Post-Procedure Diagnose(s): Other ascites Paracentesis Date/Time: 10/04/2024 5:17 PM Performed by: Joey Huang DO Authorized by: Joey Huang DO Consent: Consent obtained: Written Consent given by: Patient Risks, benefits, and alternatives were discussed: yes Risks discussed: Bleeding, bowel perforation and infection Alternatives discussed: No treatment [place] protocol: Procedure explained and questions answered to patient or proxy's satisfaction: yes Relevant documents present and verified: yes Test results available: yes Imaging studies available: yes Required blood products, implants, devices, and special equipment available: yes Site/side marked: yes Immediately prior to procedure, a time out was called: yes Patient identity confirmed: Verbally with patient Pre-procedure details: Procedure purpose: Therapeutic Preparation: Patient was prepped and draped in usual sterile fashion Anesthesia: Anesthesia method: Local infiltration Local anesthetic: Lidocaine 1% w/o epi Procedure details: Needle gauge: 22 Ultrasound guidance: yes Puncture site: R lower quadrant Fluid removed amount: 2800 Fluid appearance: Clear Dressing: Adhesive bandage Post-procedure details: Procedure completion: Tolerated [facility] Work Phone: 1(307) 980-906603-03-2025 Procedure note* oJey Huang DO - 10/04/2024 5:17 PM ESTAssociated Order(s): Paracentesis Post-Procedure Diagnose(s): Other ascites Paracentesis Date/Time: 10/04/2024 5:17 PM Performed by: Joey Huang DO Authorized by: Joey Huang DO Consent: Consent obtained: Written Consent given by: Patient Risks, benefits, and alternatives were discussed: yes Risks discussed: Bleeding, bowel perforation and infection Alternatives discussed: No treatment [place] protocol: Procedure explained and questions answered to patient or proxy's satisfaction: yes Relevant documents present and verified: yes Test results available: yes Imaging studies available: yes Required blood products, implants, devices, and special equipment available: yes Site/side marked: yes Immediately prior to procedure, a time out was called: yes Patient identity confirmed: Verbally with patient Pre-procedure details: Procedure purpose: Therapeutic Preparation: Patient was prepped and draped in usual sterile fashion Anesthesia: Anesthesia method: Local infiltration Local anesthetic: Lidocaine 1% w/o epi Procedure details: Needle gauge: 22 Ultrasound guidance: yes Puncture site: R lower quadrant Fluid removed amount: 2800 Fluid appearance: Clear Dressing: Adhesive bandage Post-procedure details: Procedure completion: Tolerated documented in this [facility] Work Phone: [phone]) 143-241603-03-2025 Consult note* Joey Huang, DO - 10/04/2024 5:13 PM EST Reason For Consult Ascites History Of Present Illness Franklin Archuleta is a 59 y.o. male presenting with abdominal pain. He presented to the emergency room from [facility] secondary to increasing abdominal girth pain and ascites He was recently drained at [facility] for his ascites His abdomen is hurting him He feels like he is bloated He does have hernias. He also has swelling of his lower extremities Past Medical History He has no past medical history on file. Surgical History He has no past surgical history on file. Social History He reports that he has quit smoking. His smoking use included cigarettes. He has never used smokeless tobacco. He reports that he does not currently use alcohol. He reports that he does not use drugs. Family History No family history on file. Allergies Patient has no known allergies. Review of Systems A full 10 point review of systems was obtained and is negative except HPI as above Physical Exam Physical Exam Constitutional: Appearance: Normal appearance. He is obese. HENT: Head: Normocephalic and atraumatic. Right Ear: External ear normal. Left Ear: External ear normal. Nose: Nose normal. Mouth/Throat: Mouth: Mucous membranes are moist. Pharynx: Oropharynx is clear. Eyes: Extraocular Movements: Extraocular movements intact. Conjunctiva/sclera: Conjunctivae normal. Pupils: Pupils are equal, round, and reactive to light. Cardiovascular: Rate and Rhythm: Normal rate and regular rhythm. Pulmonary: Effort: Pulmonary effort is normal. Breath sounds: Normal breath sounds. Abdominal: General: Abdomen is flat. Palpations: Abdomen is soft. Comments: Ascites Spider angiomas of the abdomen Musculoskeletal: General: Swelling present. Right lower leg: Edema present. Left lower leg: Edema present. Skin: General: Skin is warm and dry. Neurological: General: No focal deficit present. Mental Status: He is alert and oriented to person, place, and time. Psychiatric: Mood and Affect: Mood normal. Behavior: Behavior normal. I&O 24HR No intake or output data in the 24 hours ending 10/04/24 1713 Vitals 24HR Heart Rate: [78-95] Temperature: [36.4 C (97.6 F)] Respirations: [20-22] BP: (112-165)/(63-102) Weight: [117 kg (259 lb)] Pulse Ox: [95 %-99 %] Relevant Results Results reviewed Assessment/Plan Ascites Hyperbilirubinemia Cirrhosis Peripheral edema with volume overload Obesity Coagulopathy Relative hypotension Plan: We will perform a paracentesis We will send fluid for analysis I will add low-dose Lasix and spironolactone I will see him in my office for follow-up If he needs another paracentesis he is to call Assessment & Plan Joey Huang DO [facility] Work Phone: 1(161) 225-220403-03-2025 Consult note* Joey Huang DO - 10/04/2024 5:13 PM EST Reason For Consult Ascites History Of Present Illness Franklin Archuleta is a 59 y.o. male presenting with abdominal pain. He presented to the emergency room from [facility] secondary to increasing abdominal girth pain and ascites He was recently drained at [facility] for his ascites His abdomen is hurting him He feels like he is bloated He does have hernias. He also has swelling of his lower extremities Past Medical History He has no past medical history on file. Surgical History He has no past surgical history on file. Social History He reports that he has quit smoking. His smoking use included cigarettes. He has never used smokeless tobacco. He reports that he does not currently use alcohol. He reports that he does not use drugs. Family History No family history on file. Allergies Patient has no known allergies. Review of Systems A full 10 point review of systems was obtained and is negative except HPI as above Physical Exam Physical Exam Constitutional: Appearance: Normal appearance. He is obese. HENT: Head: Normocephalic and atraumatic. Right Ear: External ear normal. Left Ear: External ear normal. Nose: Nose normal. Mouth/Throat: Mouth: Mucous membranes are moist. Pharynx: Oropharynx is clear. Eyes: Extraocular Movements: Extraocular movements intact. Conjunctiva/sclera: Conjunctivae normal. Pupils: Pupils are equal, round, and reactive to light. Cardiovascular: Rate and Rhythm: Normal rate and regular rhythm. Pulmonary: Effort: Pulmonary effort is normal. Breath sounds: Normal breath sounds. Abdominal: General: Abdomen is flat. Palpations: Abdomen is soft. Comments: Ascites Spider angiomas of the abdomen Musculoskeletal: General: Swelling present. Right lower leg: Edema present. Left lower leg: Edema present. Skin: General: Skin is warm and dry. Neurological: General: No focal deficit present. Mental Status: He is alert and oriented to person, place, and time. Psychiatric: Mood and Affect: Mood normal. Behavior: Behavior normal. I&O 24HR No intake or output data in the 24 hours ending 10/04/24 1713 Vitals 24HR Heart Rate: [78-95] Temperature: [36.4 C (97.6 F)] Respirations: [20-22] BP: (112-165)/(63-102) Weight: [117 kg (259 lb)] Pulse Ox: [95 %-99 %] Relevant Results Results reviewed Assessment/Plan Ascites Hyperbilirubinemia Cirrhosis Peripheral edema with volume overload Obesity Coagulopathy Relative hypotension Plan: We will perform a paracentesis We will send fluid for analysis I will add low-dose Lasix and spironolactone I will see him in my office for follow-up If he needs another paracentesis he is to call Assessment & Plan Joey Huang DO documented in this [facility] Work Phone: 1(392) 251-803103-03-2025 Physician Emergency department Note* Sriram Oleary PA-C - 10/04/2024 12:18 PM EST Patient is a 59-year-old male who presents to the emergency department with a chief complaint of generalized abdominal pain and low back pain. He states that his abdominal pain has been increasing. He states that his back pain is chronic. Patient has liver cirrhosis in which she states is nonalcoholic. He reports that 2 days ago he had approximately 4 L of fluid pain from a paracentesis. He states that he feels as if his abdomen is just as distended as prior to his paracentesis. Patient denies any fever or chills. He reports nausea with no vomiting. He states that he has diarrhea. Review of Systems Constitutional: Negative for chills and fever. HENT: Negative for ear pain and sore throat. Eyes: Negative for pain and visual disturbance. Respiratory: Negative for cough and shortness of breath. Cardiovascular: Negative for chest pain and palpitations. Gastrointestinal: Positive for abdominal pain. Negative for diarrhea, nausea and vomiting. Genitourinary: Negative for dysuria and hematuria. Musculoskeletal: Negative for arthralgias and back pain. Skin: Negative for color change and rash. Neurological: Negative for seizures and syncope. All other systems reviewed and are negative. Physical Exam Vitals and nursing note reviewed. Constitutional: General: He is not in acute distress. Appearance: He is well-developed. He is not ill-appearing. HENT: Head: Normocephalic and atraumatic. Mouth/Throat: Pharynx: No pharyngeal swelling or oropharyngeal exudate. Eyes: General: No scleral icterus. Extraocular Movements: Extraocular movements intact. Conjunctiva/sclera: Conjunctivae normal. Pupils: Pupils are equal, round, and reactive to light. Cardiovascular: Rate and Rhythm: Normal rate and regular rhythm. Heart sounds: No murmur heard. Comments: Bilateral lower extremity edema Pulmonary: Effort: Pulmonary effort is normal. No respiratory distress. Breath sounds: Normal breath sounds. No stridor. No wheezing or rhonchi. Abdominal: General: There is distension. Palpations: Abdomen is soft. There is no mass. Tenderness: There is generalized abdominal tenderness. Hernia: A hernia is present. Hernia is present in the umbilical area (reducible). Comments: Distended, spider angiomas noted on abdomen Musculoskeletal: General: No swelling. Cervical back: Neck supple. Skin: General: Skin is warm and dry. Capillary Refill: Capillary refill takes less than 2 seconds. Neurological: General: No focal deficit present. Mental Status: He is alert. Psychiatric: Mood and Affect: Mood normal. Labs Reviewed CBC WITH AUTO DIFFERENTIAL - Abnormal Result Value WBC 5.6 nRBC 0.0 RBC 3.10 (*) Hemoglobin 9.3 (*) Hematocrit 29.8 (*) MCV 96 MCH 30.0 MCHC 31.2 (*) RDW 22.1 (*) Platelets 65 (*) Neutrophils % 76.9 Immature Granulocytes %, Automated 0.2 Lymphocytes % 11.5 Monocytes % 8.3 Eosinophils % 2.7 Basophils % 0.4 Neutrophils Absolute 4.28 Immature Granulocytes Absolute, Automated 0.01 Lymphocytes Absolute 0.64 (*) Monocytes Absolute 0.46 Eosinophils Absolute 0.15 Basophils Absolute 0.02 BASIC METABOLIC PANEL - Abnormal Glucose 197 (*) Sodium 137 Potassium 3.9 Chloride 109 (*) Bicarbonate 24 Anion Gap 8 (*) Urea Nitrogen 17 Creatinine 0.73 eGFR >90 Calcium 8.1 (*) HEPATIC FUNCTION PANEL - Abnormal Albumin 2.4 (*) Bilirubin, Total 1.8 (*) Bilirubin, Direct 0.7 (*) Alkaline Phosphatase 212 (*) ALT 46 AST 49 (*) Total Protein 5.7 (*) PROTIME-INR - Abnormal Protime 23.6 (*) INR 2.1 (*) APTT - Abnormal aPTT 40 (*) Narrative: The APTT is no longer used for monitoring Unfractionated Heparin Therapy. For monitoring Heparin Therapy, use the Heparin Assay. LIPASE - Normal Lipase 56 Narrative: Venipuncture immediately after or during the administration of Metamizole may lead to falsely low results. Testing should be performed immediately prior to Metamizole dosing. LACTATE - Normal Lactate 2.0 Narrative: Venipuncture immediately after or during the administration of Metamizole may lead to falsely low results. Testing should be performed immediately prior to Metamizole dosing. STOOL PATHOGEN PANEL, PCR FECAL OCCULT BLOOD IMMUNOASSAY C. DIFFICILE, PCR STERILE FLUID CULTURE/SMEAR URINALYSIS WITH REFLEX CULTURE AND MICROSCOPIC Narrative: The following orders were created for panel order Urinalysis with Reflex Culture and Microscopic. Procedure Abnormality Status --------- ------ Urinalysis with Reflex C...[[id number]] Extra Urine Garvey Tube[[id number]] Please view results for these tests on the individual orders. URINALYSIS WITH REFLEX CULTURE AND MICROSCOPIC EXTRA URINE GARVEY TUBE PH, BODY FLUID LACTATE DEHYDROGENASE, BODY FLUID Narrative: The following orders were created for panel order Lactate Dehydrogenase, Body Fluid. Procedure Abnormality Status --------- ------ Lactate Dehydrogenase, B...[[id number]] In process Please view results for these tests on the individual orders. GLUCOSE, BODY FLUID Narrative: The following orders were created for panel order Glucose, Body Fluid. Procedure Abnormality Status --------- ------ Glucose, Body Fluid[[id number]] In process Please view results for these tests on the individual orders. PROTEIN, TOTAL, BODY FLUID Narrative: The following orders were created for panel order Protein, Total, Body Fluid. Procedure Abnormality Status --------- ------ Protein, Total, Body Fluid[[id number]] In process Please view results for these tests on the individual orders. BODY FLUID CELL COUNT WITH DIFFERENTIAL Narrative: The following orders were created for panel order Body Fluid Cell Count With Differential. Procedure Abnormality Status --------- ------ Body Fluid Cell Count[[id number]] In process Body Fluid Differential[[id number]] In process Please view results for these tests on the individual orders. ALBUMIN, BODY FLUID Narrative: The following orders were created for panel order Albumin, Body Fluid. Procedure Abnormality Status --------- ------ Albumin, Body Fluid[[id number]] In process Please view results for these tests on the individual orders. LACTATE DEHYDROGENASE, BODY FLUID GLUCOSE, BODY FLUID PROTEIN, TOTAL, BODY FLUID BODY FLUID CELL COUNT ALBUMIN, BODY FLUID CYTOLOGY CONSULTATION (NON-GYNECOLOGIC) BODY FLUID CELL DIFFERENTIAL CT abdomen pelvis w IV contrast Final Result Coronary artery calcifications. Anasarca. Ascites. Small irregular liver consistent with cirrhosis. Extensive collateral vessels. Enlarged spleen. Ventral and inguinal hernias containing ascitic fluid. MACRO: none Signed by: Yohana Huang 10/04/2024 2:28 PM Dictation workstation: [id number] Procedures Medical Decision Making Patient is a 59-year-old male with a hx of cirrhosis who presents to the emergency department with a chief complaint of abdominal pain from [facility]. He reports increased abdominal pain that he describes as generalized, states that his abdomen is distended. Recently had a paracentesis performed at [facility] on September 29. Patient reports that he feels bloated and alsohas associated swelling to his lower extremities. Denies any chest pain or shortness of breath. Patient has cirrhosis of his liver. He does have lab work consistent with hyperbilirubinemia/elevated LFTs. His albumin is 2.4. Hemoglobin 9.[address] scan of the abdomen pelvis shows ascites with a cirrhotic liver and extensive collateral vessels. No evidence of infection at this time as lactic acid isnormal and no leukocytosis. He is afebrile. Dr. Joey Huang was consulted and paracentesis was performed. Fluid was sent for analysis. Lasix and spironolactone were added to the patient's medication r egimen. Patient will be discharged home with recommended follow-up with his primary care physician and Dr. Huang as needed for any additional paracentesis. Patient does report he is feeling better after the paracentesis. Differential diagnosis includes but not limited to ascites, spontaneous bacterial peritonitis, acute appendicitis, colitis, diverticulitis, small bowel obstruction Amount and/or Complexity of Data Reviewed Labs: ordered. Decision-making details documented in ED Course. Radiology: ordered. Decision-making details documented in ED Course. Risk Prescription drug management. Diagnoses as of 10/04/241736 Other ascites Abdominal pain, generalized Other cirrhosis of liver Peripheral edema Coagulopathy (Multi) Hyperbilirubinemia Cirrhosis of liver with ascites, unspecified hepatic cirrhosis type (Multi) Sriram Oleary PA-C 10/04/241736 [facility] Work Phone: 1(858) 943-282003-03-2025 Emergency department Note* Sriram Oleary PA-C - 10/04/2024 12:18 PM EST Patient is a 59-year-old male who presents to the emergency department with a chief complaint of generalized abdominal pain and low back pain. He states that his abdominal pain has been increasing. He states that his back pain is chronic. Patient has liver cirrhosis in which she states is nonalcoholic. He reports that 2 days ago he had approximately 4 L of fluid pain from a paracentesis. He states that he feels as if his abdomen is just as distended as prior to his paracentesis. Patient denies any fever or chills. He reports nausea with no vomiting. He states that he has diarrhea. Review of Systems Constitutional: Negative for chills and fever. HENT: Negative for ear pain and sore throat. Eyes: Negative for pain and visual disturbance. Respiratory: Negative for cough and shortness of breath. Cardiovascular: Negative for chest pain and palpitations. Gastrointestinal: Positive for abdominal pain. Negative for diarrhea, nausea and vomiting. Genitourinary: Negative for dysuria and hematuria. Musculoskeletal: Negative for arthralgias and back pain. Skin: Negative for color change and rash. Neurological: Negative for seizures and syncope. All other systems reviewed and are negative. Physical Exam Vitals and nursing note reviewed. Constitutional: General: He is not in acute distress. Appearance: He is well-developed. He is not ill-appearing. HENT: Head: Normocephalic and atraumatic. Mouth/Throat: Pharynx: No pharyngeal swelling or oropharyngeal exudate. Eyes: General: No scleral icterus. Extraocular Movements: Extraocular movements intact. Conjunctiva/sclera: Conjunctivae normal. Pupils: Pupils are equal, round, and reactive to light. Cardiovascular: Rate and Rhythm: Normal rate and regular rhythm. Heart sounds: No murmur heard. Comments: Bilateral lower extremity edema Pulmonary: Effort: Pulmonary effort is normal. No respiratory distress. Breath sounds: Normal breath sounds. No stridor. No wheezing or rhonchi. Abdominal: General: There is distension. Palpations: Abdomen is soft. There is no mass. Tenderness: There is generalized abdominal tenderness. Hernia: A hernia is present. Hernia is present in the umbilical area (reducible). Comments: Distended, spider angiomas noted on abdomen Musculoskeletal: General: No swelling. Cervical back: Neck supple. Skin: General: Skin is warm and dry. Capillary Refill: Capillary refill takes less than 2 seconds. Neurological: General: No focal deficit present. Mental Status: He is alert. Psychiatric: Mood and Affect: Mood normal. Labs Reviewed CBC WITH AUTO DIFFERENTIAL - Abnormal Result Value WBC 5.6 nRBC 0.0 RBC 3.10 (*) Hemoglobin 9.3 (*) Hematocrit 29.8 (*) MCV 96 MCH 30.0 MCHC 31.2 (*) RDW 22.1 (*) Platelets 65 (*) Neutrophils % 76.9 Immature Granulocytes %, Automated 0.2 Lymphocytes % 11.5 Monocytes % 8.3 Eosinophils % 2.7 Basophils % 0.4 Neutrophils Absolute 4.28 Immature Granulocytes Absolute, Automated 0.01 Lymphocytes Absolute 0.64 (*) Monocytes Absolute 0.46 Eosinophils Absolute 0.15 Basophils Absolute 0.02 BASIC METABOLIC PANEL - Abnormal Glucose 197 (*) Sodium 137 Potassium 3.9 Chloride 109 (*) Bicarbonate 24 Anion Gap 8 (*) Urea Nitrogen 17 Creatinine 0.73 eGFR >90 Calcium 8.1 (*) HEPATIC FUNCTION PANEL - Abnormal Albumin 2.4 (*) Bilirubin, Total 1.8 (*) Bilirubin, Direct 0.7 (*) Alkaline Phosphatase 212 (*) ALT 46 AST 49 (*) Total Protein 5.7 (*) PROTIME-INR - Abnormal Protime 23.6 (*) INR 2.1 (*) APTT - Abnormal aPTT 40 (*) Narrative: The APTT is no longer used for monitoring Unfractionated Heparin Therapy. For monitoring Heparin Therapy, use the Heparin Assay. LIPASE - Normal Lipase 56 Narrative: Venipuncture immediately after or during the administration of Metamizole may lead to falsely low results. Testing should be performed immediately prior to Metamizole dosing. LACTATE - Normal Lactate 2.0 Narrative: Venipuncture immediately after or during the administration of Metamizole may lead to falsely low results. Testing should be performed immediately prior to Metamizole dosing. STOOL PATHOGEN PANEL, PCR FECAL OCCULT BLOOD IMMUNOASSAY C. DIFFICILE, PCR STERILE FLUID CULTURE/SMEAR URINALYSIS WITH REFLEX CULTURE AND MICROSCOPIC Narrative: The following orders were created for panel order Urinalysis with Reflex Culture and Microscopic. Procedure Abnormality Status --------- ------ Urinalysis with Reflex C...[[id number]] Extra Urine Garvey Tube[[id number]] Please view results for these tests on the individual orders. URINALYSIS WITH REFLEX CULTURE AND MICROSCOPIC EXTRA URINE GARVEY TUBE PH, BODY FLUID LACTATE DEHYDROGENASE, BODY FLUID Narrative: The following orders were created for panel order Lactate Dehydrogenase, Body Fluid. Procedure Abnormality Status --------- ------ Lactate Dehydrogenase, B...[[id number]] In process Please view results for these tests on the individual orders. GLUCOSE, BODY FLUID Narrative: The following orders were created for panel order Glucose, Body Fluid. Procedure Abnormality Status --------- ------ Glucose, Body Fluid[[id number]] In process Please view results for these tests on the individual orders. PROTEIN, TOTAL, BODY FLUID Narrative: The following orders were created for panel order Protein, Total, Body Fluid. Procedure Abnormality Status --------- ------ Protein, Total, Body Fluid[[id number]] In process Please view results for these tests on the individual orders. BODY FLUID CELL COUNT WITH DIFFERENTIAL Narrative: The following orders were created for panel order Body Fluid Cell Count With Differential. Procedure Abnormality Status --------- ------ Body Fluid Cell Count[[id number]] In process Body Fluid Differential[[id number]] In process Please view results for these tests on the individual orders. ALBUMIN, BODY FLUID Narrative: The following orders were created for panel order Albumin, Body Fluid. Procedure Abnormality Status --------- ------ Albumin, Body Fluid[[id number]] In process Please view results for these tests on the individual orders. LACTATE DEHYDROGENASE, BODY FLUID GLUCOSE, BODY FLUID PROTEIN, TOTAL, BODY FLUID BODY FLUID CELL COUNT ALBUMIN, BODY FLUID CYTOLOGY CONSULTATION (NON-GYNECOLOGIC) BODY FLUID CELL DIFFERENTIAL CT abdomen pelvis w IV contrast Final Result Coronary artery calcifications. Anasarca. Ascites. Small irregular liver consistent with cirrhosis. Extensive collateral vessels. Enlarged spleen. Ventral and inguinal hernias containing ascitic fluid. MACRO: none Signed by: Yohana Huang 10/04/2024 2:28 PM Dictation workstation: [id number] Procedures Medical Decision Making Patient is a 59-year-old male with a hx of cirrhosis who presents to the emergency department with a chief complaint of abdominal pain from [facility]. He reports increased abdominal pain that he describes as generalized, states that his abdomen is distended. Recently had a paracentesis performed at [facility] on September 29. Patient reports that he feels bloated and alsohas associated swelling to his lower extremities. Denies any chest pain or shortness of breath. Patient has cirrhosis of his liver. He does have lab work consistent with hyperbilirubinemia/elevated LFTs. His albumin is 2.4. Hemoglobin 9.[address] scan of the abdomen pelvis shows ascites with a cirrhotic liver and extensive collateral vessels. No evidence of infection at this time as lactic acid isnormal and no leukocytosis. He is afebrile. Dr. Joey Huang was consulted and paracentesis was performed. Fluid was sent for analysis. Lasix and spironolactone were added to the patient's medication r egimen. Patient will be discharged home with recommended follow-up with his primary care physician and Dr. Huang as needed for any additional paracentesis. Patient does report he is feeling better after the paracentesis. Differential diagnosis includes but not limited to ascites, spontaneous bacterial peritonitis, acute appendicitis, colitis, diverticulitis, small bowel obstruction Amount and/or Complexity of Data Reviewed Labs: ordered. Decision-making details documented in ED Course. Radiology: ordered. Decision-making details documented in ED Course. Risk Prescription drug management. Diagnoses as of 10/04/24 1737 Other ascites Abdominal pain, generalized Other cirrhosis of liver Peripheral edema Coagulopathy (Multi) Hyperbilirubinemia Cirrhosis of liver with ascites, unspecified hepatic cirrhosis type (Multi) Sriram Oleary PA-C 10/04/24 1737 documented in this [facility] Work Phone: 1(820) 315-847402-26-2025 Procedure note [facility] Medical Records Department [address] [place] [address] Operative Report 09/29/24 1048 MR#: [id number] Acct: [id number] Name: FRANKLIN ARCHULETA Rep #:[id number] : 1965 59 From: Jasmine carranza NP BAG HANGER-C PCP: Care Physician,No Primary Status :REG CLI Location: US Problems Associated Problem List Diagnoses (1) Abdominal ascites: Multi Select Codes Radiology Radiology US Procedures: 64027 Paracentesis Operative Report (Standard) Operative Information Date of Procedure: 09/29/24 Pre-Operative Diagnosis: Abdominal ascites Post-Operative Diagnosis: Abdominal ascites Surgery/Procedure Performed: Ultrasound-guided paracentesis door liner helper: No Type of Anesthesia: Local Procedure Start Time: 09:55 Procedure Stop Time: 10:17 Select all DRAINS/GRAFTS/IMPLANTS that apply: None Estimated Blood Loss: 0 Specimen collected: No Description of surgery: PROCEDURE: Ultrasound guided paracentesis ORDERING PROVIDER: Diane Callahan NP INDICATION: Male, 59 years old. Abdominal ascites. PROVIDER: Jasmine Morocho VIDEO ENGINEER TECHNIQUE: The risks, benefits, and alternatives to the procedure were explained to the patient. The specific risks of bleeding, infection, and damage to bowel were detailed and accepted. Witnessed informed consent was obtained. The abdomen was ultrasonographically surveyed. An appropriate pocket of fluid was identified in theright lower quadrant. The skin was prepped with chlorhexidine and sterile field established. 2% lidocaine was used for local anesthetic. Using ultrasound guidance, the peritoneal cavity was accessed with a 5-Mohawk paracentesis needle/catheter system. The trocar was removed. A total of 4-5 oh next field ml of clear yellow colored fluid was removed from the peritoneal cavity. The catheter was removed and a sterile dressing was applied. The procedure was well tolerated. IMPRESSION: Successful ultrasound guided paracentesis with right lower quadrant access site. Surgical Findings: None Complications Complications: No 09/29/24 1053 Cosigner Signature (if applicable): CC: BAG HANGER-C Jasmine Morocho; No Primary Care Physician; DIANE CALLAHAN~ Signed [facility]02-11-2025 [facility]02-02-2025 Evaluation note* Diagnosis Onset Date Resolution Status Admit Date Ambulatory dysfunction acute Fe bruary 2024 1:46am Generalized weakness acute Febr uary 2024 1:46am Staghorn calculus acute Februar y 2024 1:46am Acute cystitis with hematuria resolv ed September 05, 2024 1:46am Impaired renal function resolved F ebruary 2024 1:46am Lactic acidosis resolved September 05, 2024 1:46am Leukocytosis resolved September 1:46am Metabolic encephalopathy resolved September 05, 2024 1:46am ISABEL (acute kidney injury) inactive September 05, 2024 1:46am Chronic back pain inactive ua2024 1:46am Chronic hypotension inactive u ace 2024 1:46am Hepatic encephalopathy inactive Fe bruary 2024 1:46am Hyperbilirubinemia inactive 2024 1:46am Hypotension inactive September 05, 2024 1:46am 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) inactive September 05 1:46am Obesity (BMI 30-39.9) inactive Fe ruary 2024 1:46am ABBY on CPAP inactive September 05, 2024 1:46am Cirrhosis of liver deleted 2024 1:46am Abdominal ascites acute y 2024 9:35am Clostridium difficile colitis acute October 29, 2024 12:43am History of uric acid staghor n calculus acute October 29, 2024 12:43am Hyponatremia acute October 29, 2024 12:43am Leukocytosis acute October 29, 2024 12:43am Obesity (BMI 30.0-34.9) acute M arch 2024 12:43am Chronic abdominal pain chronic [facility] 2024 12:43am Chronic back pain chronic October 032024 12:43am Acidosis, lactic inactive October 292024 12:43am Acute hypotension inactive October 032024 12:43am Acute UTI inactive October 29 12:43am Diarrhea inactive October 29 12:43am Sepsis inactive October 29 12:43am ABLA (acute blood loss anemia) acute November 23, 2024 4:19pm Ambulatory dysfunction acute Ap ril 2024 4:19pm Generalized weakness acute Apri l 2024 4:19pm Hematuria acute November 23 4:19pm Hepatic cirrhosis acute November 032024 4:19pm Staghorn calculus acute November 032024 4:19pm Mild dehydration resolved November 232024 4:19pm Weakness inactive November 23 4:19pm Clostridium difficile colitis acute November 28, 2024 4:51pm Hepatic cirrhosis acute November 032024 4:51pm Abdominal wall cellulitis resolved November 28, 2024 4:51pm UTI (urinary tract infection) resolv ed November 28, 2024 4:51pm Acute kidney injury acute January 02, 2025 6:06am Fall acute January 02, 2025 6:06am [facility] Work Phone: 1(376) 871-333501-30-2025 [facility]01-27-2025 Evaluation note* Diagnosis Onset Date Resolution Status Admit Date ISABEL (acute kidney injury) inactive August 29, 2024 10:09pm Hepatic encephalopathy inactive Ja nuary 2024 10:09pm Hypotension inactive August 29, 2024 10:09pm Ambulatory dysfunction acute 2024 1:46am Generalized weakness acute Febr uary 2024 1:46am Staghorn calculus acute uar y 2024 1:46am Acute cystitis with hematuria resolv ed September 05, 2024 1:46am Impaired renal function resolved F ebruary 2024 1:46am Lactic acidosis resolved September 05, 2024 1:46am Leukocytosis resolved September 1:46am Metabolic encephalopathy resolved September 05, 2024 1:46am ISABEL (acute kidney injury) inactive September 05, 2024 1:46am Chronic back pain inactive Februar y 2024 1:46am Chronic hypotension inactive u ace2024 1:46am Hepatic encephalopathy inactive 2024 1:46am Hyperbilirubinemia inactive ry 2024 1:46am Hypotension inactive September 05, 2024 1:46am 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) inactive September 05 1:46am Obesity (BMI 30-39.9) inactive Sep 1:46am ABBY on CPAP inactive September 05, 2024 1:46am Cirrhosis of liver deleted 2024 1:46am Abdominal ascites acute Februar y 2024 9:35am [facility] Work Phone: 1(482) 598-968101-27-2025 Evaluation note* Diagnosis Onset Date Resolution Status Admit Date ISABEL (acute kidney injury) inactive August 29, 2024 10:09pm Hepatic encephalopathy inactive Ja nuary 2024 10:09pm Hypotension inactive August 29, 2024 10:09pm Ambulatory dysfunction acute Fe 2024 1:46am Generalized weakness acute uary 2024 1:46am Staghorn calculus acute 2024 1:46am Acute cystitis with hematuria resolv ed September 05, 2024 1:46am Impaired renal function resolved F ebruary 2024 1:46am Lactic acidosis resolved September 05, 2024 1:46am Leukocytosis resolved September 1:46am Metabolic encephalopathy resolved September 05, 2024 1:46am ISABEL (acute kidney injury) inactive September 05, 2024 1:46am Chronic back pain inactive 2024 1:46am Chronic hypotension inactive u ace2024 1:46am Hepatic encephalopathy inactive 2024 1:46am Hyperbilirubinemia inactive 2024 1:46am Hypotension inactive September 05, 2024 1:46am 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) inactive September 05 025 1:46am Obesity (BMI 30-39.9) inactive Sep ruary 2024 1:46am ABBY on CPAP inactive September 05, 2024 1:46am Cirrhosis of liver deleted 2024 1:46am Abdominal ascites acute r y 2024 9:35am Acidosis, lactic acute October 292024 12:43am Acute hypotension acute October 032024 12:43am Acute UTI acute October 29 12:43am Diarrhea acute October 29 12:43am History of uric acid staghor n calculus acute October 29, 2024 12:43am Leukocytosis acute October 29, 2024 12:43am Obesity (BMI 30.0-34.9) acute M arch 2024 12:43am Sepsis acute October 29 12:43am Chronic abdominal pain chronic [facility] 2024 12:43am Chronic back pain chronic October 032024 12:43am [facility] Work Phone: 1(445) 712-119701-27-2025 Evaluation note* Diagnosis Onset Date Resolution Status Admit Date ISABEL (acute kidney injury) inactive August 29, 2024 10:09pm Hepatic encephalopathy inactive Ja nuary 2024 10:09pm Hypotension inactive August 29, 2024 10:09pm Ambulatory dysfunction acute 2024 1:46am Generalized weakness acute uary 2024 1:46am Staghorn calculus acute uar y 2024 1:46am Acute cystitis with hematuria resolv ed September 05, 2024 1:46am Impaired renal function resolved F ebruary 2024 1:46am Lactic acidosis resolved September 05, 2024 1:46am Leukocytosis resolved September 1:46am Metabolic encephalopathy resolved September 05, 2024 1:46am ISABEL (acute kidney injury) inactive September 05, 2024 1:46am Chronic back pain inactive 2024 1:46am Chronic hypotension inactive u ace 2024 1:46am Hepatic encephalopathy inactive 2024 1:46am Hyperbilirubinemia inactive 2024 1:46am Hypotension inactive September 05, 2024 1:46am 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) inactive September 05 1:46am Obesity (BMI 30-39.9) inactive Sep ru2024 1:46am ABBY on CPAP inactive September 05, 2024 1:46am Cirrhosis of liver deleted 2024 1:46am Abdominal ascites acute r 2024 9:35am Acidosis, lactic acute October 292024 12:43am Acute hypotension acute October 032024 12:43am Acute UTI acute October 29 12:43am Clostridium difficile colitis acute October 29, 2024 12:43am Diarrhea acute October 29 12:43am History of uric acid staghor n calculus acute October 29, 2024 12:43am Hyponatremia acute October 29, 2024 12:43am Leukocytosis acute October 29, 2024 12:43am Obesity (BMI 30.0-34.9) acute 2024 12:43am Sepsis acute October 29 12:43am Chronic abdominal pain chronic [facility] 2024 12:43am Chronic back pain chronic October 032024 12:43am [facility] Work Phone: 1(959) 402-749901-27-2025 Evaluation note* Diagnosis Onset Date Resolution Status Admit Date ISABEL (acute kidney injury) inactive August 29, 2024 10:09pm Hepatic encephalopathy inactive Ja nuary 2024 10:09pm Hypotension inactive August 29, 2024 10:09pm Ambulatory dysfunction acute Fe bru2024 1:46am Generalized weakness acute Febr uary 2024 1:46am Staghorn calculus acute uar y 2024 1:46am Acute cystitis with hematuria resolv ed September 05, 2024 1:46am Impaired renal function resolved F ebruary 2024 1:46am Lactic acidosis resolved September 05, 2024 1:46am Leukocytosis resolved September 1:46am Metabolic encephalopathy resolved September 05, 2024 1:46am ISABEL (acute kidney injury) inactive September 05, 2024 1:46am Chronic back pain inactive uar 2024 1:46am Chronic hypotension inactive u ace2024 1:46am Hepatic encephalopathy inactive Fe bruary 2024 1:46am Hyperbilirubinemia inactive ry 2024 1:46am Hypotension inactive September 05, 2024 1:46am 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) inactive September 05 1:46am Obesity (BMI 30-39.9) inactive Sep ru2024 1:46am ABBY on CPAP inactive September 05, 2024 1:46am Cirrhosis of liver deleted 2024 1:46am Abdominal ascites acute Februar y 2024 9:35am Clostridium difficile colitis acute October 29, 2024 12:43am History of uric acid staghor n calculus acute October 29, 2024 12:43am Hyponatremia acute October 29, 2024 12:43am Leukocytosis acute October 29, 2024 12:43am Obesity (BMI 30.0-34.9) acute [facility] 2024 12:43am Chronic abdominal pain chronic [facility] 2024 12:43am Chronic back pain chronic October 032024 12:43am Acidosis, lactic inactive October 292024 12:43am Acute hypotension inactive October 032024 12:43am Acute UTI inactive October 29 12:43am Diarrhea inactive October 29 12:43am Sepsis inactive October 29 12:43am ABLA (acute blood loss anemia) acute November 21, 2024 4:28am Ambulatory dysfunction acute Ap ril 2024 4:28am Generalized weakness acute Apri l 2024 4:28am Hematuria acute November 21 4:28am Hepatic cirrhosis acute November 032024 4:28am Mild dehydration acute November 212024 4:28am Staghorn calculus acute November 032024 4:28am [facility] Work Phone: 1(172) 397-547001-27-2025 Evaluation note* Diagnosis Onset Date Resolution Status Admit Date ISABEL (acute kidney injury) inactive August 29, 2024 10:09pm Hepatic encephalopathy inactive Ja nuary 2024 10:09pm Hypotension inactive August 29, 2024 10:09pm Ambulatory dysfunction acute Fe bru2024 1:46am Generalized weakness acute Febr uary 2024 1:46am Staghorn calculus acute Februar y 2024 1:46am Acute cystitis with hematuria resolv ed September 05, 2024 1:46am Impaired renal function resolved F ebruary 2024 1:46am Lactic acidosis resolved September 05, 2024 1:46am Leukocytosis resolved September 1:46am Metabolic encephalopathy resolved September 05, 2024 1:46am ISABEL (acute kidney injury) inactive September 05, 2024 1:46am Chronic back pain inactive Februar y 2024 1:46am Chronic hypotension inactive Febru ace 2024 1:46am Hepatic encephalopathy inactive bru2024 1:46am Hyperbilirubinemia inactive Februa ry 2024 1:46am Hypotension inactive September 05, 2024 1:46am 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) inactive September 05 1:46am Obesity (BMI 30-39.9) inactive Sep ru2024 1:46am ABBY on CPAP inactive September 05, 2024 1:46am Cirrhosis of liver deleted Februa 2024 1:46am Abdominal ascites acute Februar y 2024 9:35am Clostridium difficile colitis acute October 29, 2024 12:43am History of uric acid staghor n calculus acute October 29, 2024 12:43am Hyponatremia acute October 29, 2024 12:43am Leukocytosis acute October 29, 2024 12:43am Obesity (BMI 30.0-34.9) acute M arch 2024 12:43am Chronic abdominal pain chronic Ma h 2024 12:43am Chronic back pain chronic October 032024 12:43am Acidosis, lactic inactive October 292024 12:43am Acute hypotension inactive October 032024 12:43am Acute UTI inactive October 29 12:43am Diarrhea inactive October 29 12:43am Sepsis inactive October 29 12:43am ABLA (acute blood loss anemia) acute November 23, 2024 4:19pm Ambulatory dysfunction acute Ap ril 2024 4:19pm Generalized weakness acute Apri l 2024 4:19pm Hematuria acute November 23 4:19pm Hepatic cirrhosis acute November 032024 4:19pm Staghorn calculus acute November 032024 4:19pm Mild dehydration resolved November 232024 4:19pm Weakness inactive November 23 4:19pm Clostridium difficile colitis acute November 28, 2024 4:51pm Hepatic cirrhosis acute November 032024 4:51pm Abdominal wall cellulitis resolved November 28, 2024 4:51pm UTI (urinary tract infection) resolv ed November 28, 2024 4:51pm [facility] Work Phone: Discharge summary Author Herberth Carlson [facility] Note Date/Time November 21, 2024 4:1 6am [facility] Medical Records Department [address] [place] [address] Emergency Department Summary 11/21/24 MR#: [id number] Acct: [id number] Name: GEREMIASFRANKLIN Rep #:[id number] : 1965 59 From: Herberth Carlson MD PCP: Care Physician,No Primary Status :REG ER Location: ED HPI History of Present Illness Chief Complaint: Abd Pain Informant: patient and EMS Narrative Narrative: 59-year-old male states he is extremely weak all over, his abdomen hurts especially in the left flank, and has been having diarrhea for the last couple days which caused him to discontinue his lactulose. He was [facility] and other issues, he states he has a large kidney stone, and he basically states that no one will do anything about the kidney stone or his liver, and he is not sure why no one will fix him. He chronically has hematuria off-and-on, he states has been worse in the last 2 or 3 weeks. Heis a very poor historian. He denies feeling confused. He denies any cough, shortness of breath, chest pain, nausea or vomiting, melena, or blood in stool. He states he has no new symptoms, just feels worse and he was so weak that he could not get up off the toilet after multiple attempts over couple hours. [facility] Medical History Diarrhea Sepsis Acidosis, lactic Acute hypotension Acute UTI Chronic hypotension Obesity (BMI 30-39.9) Chronic back pain ISABEL (acute kidney injury) Hypotension Hepatic encephalopathy Hyperbilirubinemia 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) HLD (hyperlipidemia) HTN (hypertension) Thrombocytopenia Chronic anemia Former tobacco use Diabetes mellitus, type 2 ABBY on CPAP Back pain Home Medications ?Medication ?Instructions ?Recorded ?Last Taken ?Type lidocaine 5 % topical patch 3 patch topical DAILY #90 ea 09/02/24 Unknown Rx rifaximin 550 mg tablet (Xifaxan) 550 mg PO BID #60 ta bs 09/02/24 Unknown Rx insulin lispro 100 unit/mL See Protocol subcut ACHS #0 mL 09/14/24 Unknown Rx subcutaneous pen (Humalog KwikPen (U-100) Insulin) acetaminophen 500 mg tablet 1,000 mg PO Q8 PRN fever o r pain 10/28/24 Unknown History calcium 500 mg (as 1 tab PO DAILY 10/28/24 Unkn own History carbonate)-vitamin D3 5 mcg (200 unit) tablet (Oyster Shell Calcium-Vitamin D3) folic acid 1 mg tablet 1 mg PO DAILY 10/28/24 Unkno wn History ibuprofen 800 mg tablet 800 mg PO TID PRN PRN fever or pain 10/28/24 Unknown History apixaban 5 mg tablet (Eliquis) 5 mg PO BID 11/21/24 Un known History atorvastatin 40 mg tablet 40 mg PO DAILY 11/21/24 Unkn own History cyclobenzaprine 10 mg tablet 10 mg PO QHS cramps 11/21 Unknown History enoxaparin 120 mg/0.8 mL 105 mg subcut Q12.TCU Unknown History subcutaneous syringe ferrous sulfate 325 mg (65 mg 325 mg PO QODAY 11/21/24 Unknown History iron) tablet (FeroSul) fluconazole 200 mg tablet 200 mg PO DAILY 11/21/24 Unk nown History furosemide 20 mg tablet 40 mg PO DAILY 11/21/24 Unkn own History lactulose 10 gram/15 mL oral 60 ml PO TID 11/21/24 Unk nown History solution (Constulose) magnesium oxide 400 mg (241.3 mg 400 mg PO DAILY 11/21 Unknown History magnesium) tablet metformin 500 mg tablet,extended 500 mg PO QPM 5 Unknown History release 24 hr pantoprazole 20 mg tablet,delayed 20 mg PO DAILY 11/21 Unknown History release sodium bicarbonate 650 mg tablet 650 mg PO BID 5 Unknown History spironolactone 50 mg tablet 50 mg PO DAILY 11/21/24 Un known History thiamine HCl (vitamin B1) 100 mg 100 mg PO DAILY 11/21 Unknown History tablet zinc sulfate 50 mg zinc (220 mg) 50 mg PO DAILY Unknown History tablet Allergy/AdvReac Type Severity Reaction Status Date / Time No Known Allergies Allergy Verified 11/21/24 01:32 Family History Mother Heart disease Hypertension CAD (coronary artery disease) Myocardial infarction Father Hypertension Heart disease Heart failure Surgical History History of tonsillectomy and adenoidectomy Social History household members: significant other Smoking Status: Former smoker how long ago did patient quit smoking: Quit ~ 3-4 months prior (fall 2023), smoked 1.5 ppd since teen until quit. alcohol intake: never substance use type: does not use ROS ROS ED Constitutional Constitutional ED: Reports malaise and weakness; Denies chills or fever(s) Eyes Eyes: Denies change in vision or diplopia ENT ENT ED: Denies rhinorrhea or sore throat Cardiovascular Cardiovascular: Denies chest pain or palpitations Respiratory/Chest Respiratory/Chest: Denies cough or dyspnea Gastrointestinal Gastrointestinal: Reports abdominal pain; Denies diarrhea, melena, nausea or vomiting Genitourinary Genitourinary ED: Denies dysuria or hematuria Musculoskeletal Musculoskeletal: Reports back pain; Denies neck pain Integumentary Denies abscess or rash Neurologic Neurologic: Denies headache(s), paresthesias or weakness Psychiatric Psychiatric: Denies suicidal thoughts EXAM Physical Exam Const Vital Signs: 11/21/24 01:32 11/21/24 03:32 11/21/24 03:50 Temperature 98.4 F 98.4 F Temperature Source Oral Pulse Rate 65 81 79 Respiratory Rate 14 18 Blood Pressure 150/58 H 156/70 H Blood Pressure Mean 88 98 Pulse Ox 100 98 Oxygen Delivery Method 11/21/24 03:51 Temperature 98.4 F Temperature Source Oral Pulse Rate 84 Respiratory Rate 18 Blood Pressure 156/70 H Blood Pressure Mean 98 Pulse Ox 95 Oxygen Delivery Method Room Air Positive well nourished and well developed General Appearance ED: well developed and NAD HEENT Reports moist mucous membranes normocephalic and atraumatic Eyes PERRL and EOMs intact bilaterally Neck full ROM and supple Resp normal respiratory effort and clear to auscultation bilaterally Cardio regular rate, regular rhythm and no murmurs GI non-tender and non-distended GI Narrative: Benign abdomen, some distention and fluid wave but not tight, no rebound tenderness. Piece of gauze in the left mid abdomen, there is no active fluid discharge at this current time. No signs of localized skin infection here. Auscultation: normoactive bowel sounds Palpation: soft Back/Spine no CVA tenderness General Back: other FROM Extremity normal to inspection General Extremety ED: Yes edema; Negative for pulses abnormal or tenderness General Extremity: edema bilateral lower extremity Details: moderate; Negative for pulses abnormal Neuro oriented x3, CN's II-XII intact bilaterally and no sensory deficits noted Neuro Narrative: Nonfocal neurologic exam. Sensorium / Orientation: awake and alert Motor Exam: general weakness Skin no wounds Skin Narrative: Borderline jaundiced. Multiple areas of ecchymosis on arms and hands. Some purpura on the left side of the abdomen. MDM MDM MDM Narrative Medical decision making narrative: His hemoglobin is 8.3, lower than usual. Given his history I expect this is related to his hematuria, he has gross hematuria now with no clots. This may berelated to his staghorn calculus and/or his INR of 2.6 which is likely related to his cirrhosis. 1 view chest x-ray on my interpretation shows some chronic right lower lobe scarring but no acute pneumonia, it is similar to his prior x-ray. He does not have any acute cough or dyspnea so I do not think he likely has acute pneumonia. His urine shows blood and leukocyte esterase as well as red blood cells and white blood cells, rare bacteria seen he has no urinary symptoms except for the blood, some send that for culture as it looks similar inthe recent past and his culture was negative before. This and he does not have a leukocytosis to suggest an acute infection. BUN and creatinine are a little elevated compared to before, possibly due to dehydration, he was given some fluids, his lactic acid is a little elevated this is nonspecific and not necessarily indicative of sepsis in a patient with poor hepatic function. His ammonia level is in the normal range for the first time in a while and his priorhyponatremia is much improved. Upon reviewing some recent hospital records from his admission, he was septic. Had a stent in his left ureter several weeks prior to that related to a staghorncalculus, the stent did not need to be emergently intervened on and was patent, he has not yet followed up with urology as an outpatient. He also had C. difficile and a very high white blood count. The diarrhea for the last couple days he states his only been twice per day, less likely to be associated with acute C. difficile. Since he recently had C. difficile and I do not see definitive evidence of an acute infection on holding off on any new antibiotics. He states he is too weak to go home where he lives alone so I am calling the hospitalist for consultation/admission. History & Record Review Additional record(s) reviewed:: Prior inpatient record Lab Data Attestation: I reviewed the patient's lab results. Labs: Laboratory Results - last 24 hr 11/21/24 11/21/24 02:28 02:41 WBC 9.5 RBC 2.64 L Hgb 8.3 L Hct 24.6 L MCV 93.2 MCH 31.4 MCHC 33.7 RDW Std Deviation 57.1 H RDW Coeff of Francis 16.8 H Plt Count 167 MPV 11.6 Immature Gran % (Auto) 0.800 Neut % (Auto) 68.7 Lymph % (Auto) 13.9 L [place] % (Auto) 9.2 Eos % (Auto) 7.2 H Baso % (Auto) 0.2 Absolute Neuts (auto) 6.5 Absolute Lymphs (auto) 1.33 Nucleated RBC % 0 PT 28.2 H INR 2.6 Sodium 132 L Potassium 5.0 Chloride 103 Carbon Dioxide 17.5 L Anion Gap 11 BUN 28 H Creatinine 1.49 H Estim Creat Clear Calc 64.65 Est GFR (MDRD) Non-Af 54 L BUN/Creatinine Ratio 19.1 Glucose 188 H Lactic Acid 2.7 H* Calcium 8.7 Total Bilirubin 1.33 H AST 112 H ALT 61 H Alkaline Phosphatase 245 H Ammonia 17.9 Total Protein 5.2 L Albumin 2.5 L Globulin 2.7 Albumin/Globulin Ratio 0.9 Urine Color Yellow Urine Clarity Sl Cldy Urine pH 6.0 Ur Specific Jonancy 1.015 Urine Protein 500 H Urine Glucose (UA) Normal Urine Ketones Negative Urine Occult Blood 250 H Urine Nitrite Negative Urine Bilirubin Negative Urine Urobilinogen Normal Ur Leukocyte Esterase 500 H Urine RBC > 100 SEEN Urine WBC >100 SEEN Ur Squamous Epith Cells 0 SEEN Urine Bacteria RARE Urine Mucus 0 SEEN Radiography Diagnostic Testing: Clinical Impression(s) from Imaging Studies Chest X-Ray 11/21/24 02:38 IMPRESSION: Minimal airspace disease involving the right lower lobe, which could represent an early infectious or inflammatory process. Follow-up to resolution recommended. [facility] Discussion w/another healthcare provider: Hospitalist Discharge Plan Triage Chief Complaint: Abd Pain ED Provider: Herberth Carlson Dx/Rx/DC Orders Clinical Impression: Generalized weakness, Staghorn calculus, Ambulatory dysfunction, ABLA (acute blood loss anemia), Hematuria, Hepatic cirrhosis, Mild dehydration Prescriptions: No Action lidocaine 5 % Adhesive Patch,Medicated 3 patch topical DAILY Qty: 90 0RF Protocol: *Topical Application Instructions APPLICATION INSTRUCTIONS: to affected region Rx Instructions: Apply to low back daily for pain Xifaxan 550 mg Tablet 550 mg PO BID Qty: 60 0RF insulin lispro [Humalog KwikPen Insulin] 100 unit/mL Insulin Pen See Protocol subcut ACHS Qty: 0 0RF Protocol: 4. Sliding Scale Insulin High-Med Dosing Condition: 150-199 mg/dl = 2 units Condition: 200-259 mg/dl = 4 units Condition: 260-324 mg/dl = 6 units Condition: 325-374 mg/dl = 8 units Condition: 375-409 mg/dl = 10 units Condition: 410-449 mg/dl = 11 units Condition: Greater than 449 call physician Protocol Text: Suggested for: - Patients on Total Daily Insulin Dose of 56-80 units - Patient who are known to be insulin resistant or septic HIGH MEDIUM DOSING ALGORITHM ibuprofen 800 mg tablet 800 mg PO TID PRN PRN (Reason: fever or pain) folic acid 1 mg tablet 1 mg PO DAILY calcium carbonate-vitamin D3 [Oyster Shell Calcium-Vit D3] 500 mg-5 mcg (200 unit) tablet 1 tab PO DAILY acetaminophen 500 mg Tablet 1,000 mg PO Q8 PRN (Reason: fever or pain) cyclobenzaprine 10 mg tablet 10 mg PO QHS atorvastatin 40 mg tablet 40 mg PO DAILY fluconazole 200 mg tablet 200 mg PO DAILY ferrous sulfate [FeroSul] 325 mg (65 mg iron) tablet 325 mg PO QODAY furosemide 20 mg tablet 40 mg PO DAILY enoxaparin 120 mg/0.8 mL syringe 105 mg subcut Q12.TCU Eliquis 5 mg tablet 5 mg PO BID magnesium oxide 400 mg (241.3 mg magnesium) tablet 400 mg PO DAILY lactulose [Constulose] 10 gram/15 mL solution 60 ml PO TID sodium bicarbonate 650 mg tablet 650 mg PO BID metformin 500 mg tablet extended release 24 hr 500 mg PO QPM spironolactone 50 mg tablet 50 mg PO DAILY thiamine HCl (vitamin B1) 100 mg tablet 100 mg PO DAILY pantoprazole 20 mg tablet,delayed release (DR/EC) 20 mg PO DAILY zinc sulfate 50 mg zinc (220 mg) tablet 50 mg PO DAILY Primary Care Provider: Care Physician,No Primary Referrals: Care Physician,No Primary [Primary Care Provider] - Print Language: Swedish Disposition Disposition: Acute Care Hospital [facility] What to do if you have Problems For any increased pain, shortness of breath, bleeding, nausea or vomiting, chestpain, or any unexpected problems, contact your Primary Care Provider. Call [facility] ([phone]) or report to the closest Emergency Room. Call 911 if necessary. 11/21/24 0416 <Electronically signed by Herberth Carlson MD> Cosigner Signature (if applicable): CC: No Primary Care Physician ~ Signed [facility] Work Phone: Discharge summary Author Mina Blood [facility] Note Date/Time December 30, 2024 5:19a m [facility] Medical Records Department [address] [place] [address] Emergency Department Summary 12/30/24 MR#: [id number] Acct: [id number] Name: FRANKLIN ARCHULETA Rep #:[id number] : 1965 59 From: Mina Blood DO PCP: YG Pena Status:REG E R Location: ED HPI History of Present Illness Chief Complaint: Chest Pain Informant: patient and EMS Narrative Narrative: Patient is a 59-year-old male with past medical history of insulin-dependent diabetes as well as cirrhosis and hyperlipidemia. He states that over the last day he has been having intermittent midsternal chest pain that is sharp in nature. He states it will come on for no apparent reason last a few seconds andthen resolve. He states that as his symptoms have been recurrent he is concerned this could be cardiac in nature and therefore comes in for evaluation. He denies any nausea vomiting diaphoresis or shortness of breath associated with the pain. He denies any recent trauma prior to the pain beginning. [facility] Medical History Weakness Diarrhea Sepsis Acidosis, lactic Acute hypotension Acute UTI Chronic hypotension Obesity (BMI 30-39.9) Chronic back pain ISABEL (acute kidney injury) Hypotension Hepatic encephalopathy Hyperbilirubinemia 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) HLD (hyperlipidemia) HTN (hypertension) Thrombocytopenia Chronic anemia Former tobacco use Diabetes mellitus, type 2 ABBY on CPAP Back pain Home Medications ?Medication ?Instructions ?Recorded ?Last Taken ?Type rifaximin 550 mg tablet (Xifaxan) 550 mg PO BID diarrh ea #60 tabs 09/02/24 11/28/24 Rx insulin lispro 100 unit/mL See Protocol subcut ACHS di abetes 09/14/24 Unknown Rx subcutaneous pen (Humalog KwikPen #0 mL (U-100) Insulin) acetaminophen 500 mg tablet 1,000 mg PO Q8 PRN fever o r pain 10/28/24 Unknown History calcium 500 mg (as 1 tab PO DAILY supplement 11/28/24 History carbonate)-vitamin D3 5 mcg (200 unit) tablet (Oyster Shell Calcium-Vitamin D3) folic acid 1 mg tablet 1 mg PO DAILY supplement 11/28/24 History atorvastatin 40 mg tablet 40 mg PO DAILY cholesterol 0 11/21/24 11/27/24 History furosemide 20 mg tablet 40 mg PO DAILY diuretic 11/0311/28/24 History magnesium oxide 400 mg (241.3 mg 400 mg PO DAILY suppl ement 11/21/24 11/28/24 History magnesium) tablet metformin 500 mg tablet,extended 500 mg PO QPM diabete s 11/21/24 11/27/24 History release 24 hr pantoprazole 20 mg tablet,delayed 20 mg PO DAILY reflu x 11/21/24 11/28/24 Histor y release sodium bicarbonate 650 mg tablet 650 mg PO BID supplem ent 11/21/24 11/28/24 History spironolactone 50 mg tablet 50 mg PO DAILY diuretic 11/28/24 History thiamine HCl (vitamin B1) 100 mg 100 mg PO DAILY suppl ement 11/21/24 Unknown History tablet zinc sulfate 50 mg zinc (220 mg) 50 mg PO DAILY supple ment 11/21/24 11/28/24 History tablet ascorbic acid (vitamin C) 500 mg 500 mg PO BID vitamin #60 tabs 11/25/24 11/28/24 Rx tablet midodrine 10 mg tablet 10 mg PO TID blood pressure 1 11/25/24 Unknown Rx month #90 tabs lactulose 10 gram/15 mL oral 15 ml PO TID PRN constipa tion 11/28/24 Unknown History solution (Constulose) L.acidophil,salivari-Bifido 1 cap PO TID #120 caps 08/28 Unknown Rx bifidum-Strep thermoph 175 mg capsule potassium, sodium phosphates 280 1 packet PO BID #100 ea 12/02/24 Unknown Rx mg-160 mg-250 mg oral powder packet vancomycin 125 mg capsule 125 mg PO Q6H 35 days #56 ca ps 12/02/24 Unknown Rx levofloxacin 500 mg tablet 500 mg PO DAILY infection 2 days 12/26/24 Unknown Rx #4 tabs cephalexin 500 mg capsule 500 mg PO TID 7 days #21 cap s 12/30/24 Unknown Rx Allergy/AdvReac Type Severity Reaction Status Date / Time No Known Allergies Allergy Verified 12/30/24 01:12 Family History Mother Heart disease Hypertension CAD (coronary artery disease) Myocardial infarction Father Hypertension Heart disease Heart failure Surgical History History of tonsillectomy and adenoidectomy Social History household members: significant other Smoking Status: Former smoker how long ago did patient quit smoking: Quit ~ 3-4 months prior (fall 2023), smoked 1.5 ppd since teen until quit. alcohol intake: never substance use type: does not use ROS ROS ED Constitutional Constitutional ED: Denies chills or fever(s) ENT ENT ED: Denies sore throat Cardiovascular Cardiovascular: Reports chest pain; Denies palpitations or racing heartbeat Respiratory/Chest Respiratory/Chest: Denies cough or dyspnea Gastrointestinal Gastrointestinal: Denies abdominal pain, diarrhea, nausea or vomiting Genitourinary Genitourinary ED: Denies dysuria Musculoskeletal Musculoskeletal: Denies back pain Integumentary Denies rash Neurologic Neurologic: Denies headache(s) Hematologic/Lymphatic Hematologic/Lymphatic: Denies easy bleeding or easy bruising EXAM Physical Exam Const Vital Signs: 12/30/24 01:07 12/30/24 02:06 12/30/24 03:00 Temperature 98.0 F Temperature Source Oral Pulse Rate 82 78 Respiratory Rate 16 Blood Pressure 97/60 107/65 107/67 Blood Pressure Mean 72 79 80 Pulse Ox 98 100 Oxygen Delivery Method Room Air 12/30/24 03:15 12/30/24 03:45 12/30/24 04:00 Temperature Temperature Source Pulse Rate 73 72 72 Respiratory Rate 18 16 15 Blood Pressure 108/80 97/48 L 99/51 L Blood Pressure Mean 88 64 65 Pulse Ox Oxygen Delivery Method 12/30/24 04:15 12/30/24 04:30 12/30/24 04:45 Temperature Temperature Source Pulse Rate 74 73 71 Respiratory Rate 15 17 15 Blood Pressure Blood Pressure Mean Pulse Ox Oxygen Delivery Method 12/30/24 05:00 Temperature Temperature Source Pulse Rate 72 Respiratory Rate 14 Blood Pressure 93/52 L Blood Pressure Mean 64 Pulse Ox Oxygen Delivery Method Positive well nourished and well developed General Appearance ED: well developed; Negative for pallor HEENT HEENT Narrative: Normocephalic atraumatic No signs of infection noted in the posterior pharynx Eyes PERRL and EOMs intact bilaterally Neck supple and no JVD Neck Narrative: No nuchal rigidity or meningeal signs Chest Wall Chest Narrative: There is reproducible pain on palpation of the anterior chest wall over top the sternum and costal joint region. Patient states this is the same pain he has been experiencing No bony deformity or subcutaneous emphysema No overlying soft tissue changes to suggest trauma or infection Resp normal respiratory effort Resp Narrative: Breath sounds are diminished throughout with faint rhonchi in the bilateral bases but no nasal flaring retractions tachypnea or accessory muscle use Cardio regular rate and regular rhythm Rate: other Other Details: Radial and carotid pulses are equal and symmetric GI non-distended and no masses GI Narrative: Abdomen is soft and nondistended with normal active bowel sounds. There is faint pain on palpation over top the suprapubic region No voluntary guarding or rigidity No pulsatile mass or fluid wave Auscultation: normoactive bowel sounds Palpation: soft Extremity normal to inspection Extremity Narrative: No asymmetric edema no pitting edema negative Homans' sign bilaterally Neuro oriented x3, CN's II-XII intact bilaterally and no sensory deficits noted Sensorium / Orientation: alert Motor Exam: strength 5/5 throughout Psych Psych Narrative: Patient has a flat affect Skin no rashes or lesions noted General Skin Exam: Negative for pallor MDM MDM MDM Narrative Medical decision making narrative: Patient arrived to the ER with stable vitals. He reported intermittent chest pain that was sharp in nature without radiation or symptoms of diaphoresis or shortness of breath or nausea vomiting. This is atypical for cardiovascular disease but based on his diabetic status patient could have acute ACS or cardiacdysrhythmia. With his hyperglycemia he could be in DKA or HHS. There is also concern for secondary infection driving his hyperglycemia such as UTI or pneumonia. Secondary to this basic labs were obtained as well as chest x-ray. X-ray revealed no acute lung pathology. Labs displayed no leukocytosis or left shift. Patient's creatinine is elevated at 2.05 but chart review reveals this was higher earlier this month and therefore is more of a chronic issue for him and at his baseline. Patient's blood sugar is grossly elevated at 608 but his anion gap and bicarb are normal going against DKA. Sodium is low at 128 but this is pseudohyponatremia and once corrected is normal at a value of 136. Hereserum osmolality is normal at 316 going against HHS. His initial troponin is 19with a delta has increased by a value of 1to 20 which is not clinically significant and also a normal value ruling him out of ACS by the algorithm. After receiving IV fluids his blood sugar decreased to approximately 450 and therefore he was given 12 units of insulin. He was also treated with Rocephin secondary to the UTI and the urine was sent for culture. At this time he rules out of ACS based on the cardiac algorithm he does not have lung pathology such as pneumonia or pneumothorax he does have a UTI but there are no findings of acute kidney injury or signs of urosepsis. Therefore there is no need for further inpatient evaluation. Patient will be placed on Keflex secondary to theUTI while the culture is pending and he can be discharged and advised to continue his home medication for controlling his blood sugar after being treatedwith insulin in the ER History & Record Review Discussion w/independent historian: Patient Lab Data Attestation: I reviewed the patient's lab results. Labs: Laboratory Results - last 24 hr 12/30/24 12/30/24 12/30/24 01:15 02:05 03:32 WBC 9.4 RBC 2.93 L Hgb 8.7 L Hct 25.8 L MCV 88.1 MCH 29.7 MCHC 33.7 RDW Std Deviation 50.9 H RDW Coeff of Francis 16.1 H Plt Count 131 L MPV 13.4 H Immature Gran % (Auto) 0.600 Neut % (Auto) 69.7 Lymph % (Auto) 14.0 L [place] % (Auto) 9.1 Eos % (Auto) 6.2 H Baso % (Auto) 0.4 Absolute Neuts (auto) 6.5 Absolute Lymphs (auto) 1.31 Nucleated RBC % 0 Sodium 128 L Potassium 3.2 L Chloride 91 L Carbon Dioxide 22.1 Anion Gap 15 BUN 29 H Creatinine 2.05 H Estim Creat Clear Calc 42.97 L Est GFR (MDRD) Non-Af 37 L BUN/Creatinine Ratio 14.1 Glucose 608 H* Calcium 9.1 Magnesium 1.3 L Troponin T High Sens 19 Troponin T Hi Sens 2 Hr 20 Urine Color Willow Urine Clarity Cloudy Urine pH 6.5 Ur Specific Jonancy 1.010 Urine Protein 100 H Urine Glucose (UA) 1000 H Urine Ketones Negative Urine Occult Blood 250 H Urine Nitrite Negative Urine Bilirubin Negative Urine Urobilinogen Normal Ur Leukocyte Esterase 500 H Urine RBC > 100 SEEN Urine WBC >100 SEEN Ur Squamous Epith Cells 0-5 SEEN Ur Transition Epith Cell 0-5 SEEN Urine Bacteria 1+ Urine Mucus 0 SEEN Radiography Diagnostic Testing: Clinical Impression(s) from Imaging Studies Chest X-Ray 12/30/24 01:45 IMPRESSION: No evidence of acute disease. Reading Location: [facility] Chest x-ray as interpreted by the emergency medicine physician no acute infiltrate pneumothorax or pleural effusion Discharge Plan Triage Chief Complaint: Chest Pain ED Provider: Mina Blood Dx/Rx/DC Orders Clinical Impression: Nonspecific chest pain, Urinary tract infection, Hyperglycemia, Diabetes mellitus type 2, insulin dependent, Hepatic cirrhosis, Renal insufficiency Instructions: High Blood Sugar (Hyperglycemia), Urinary Tract Infections in Men, ED Chest Wall Pain, Costochondritis Prescriptions: New cephalexin 500 mg capsule 500 mg PO TID 7 Days Qty: 21 0RF No Action Xifaxan 550 mg Tablet 550 mg PO BID Qty: 60 0RF insulin lispro [Humalog KwikPen Insulin] 100 unit/mL Insulin Pen See Protocol subcut ACHS Qty: 0 0RF Protocol: 4. Sliding Scale Insulin High-Med Dosing Condition: 150-199 mg/dl = 2 units Condition: 200-259 mg/dl = 4 units Condition: 260-324 mg/dl = 6 units Condition: 325-374 mg/dl = 8 units Condition: 375-409 mg/dl = 10 units Condition: 410-449 mg/dl = 11 units Condition: Greater than 449 call physician Protocol Text: Suggested for: - Patients on Total Daily Insulin Dose of 56-80 units - Patient who are known to be insulin resistant or septic HIGH MEDIUM DOSING ALGORITHM Patient Comments: PT DOESNT TAKE OFTEN folic acid 1 mg tablet 1 mg PO DAILY calcium carbonate-vitamin D3 [Oyster Shell Calcium-Vit D3] 500 mg-5 mcg (200 unit) tablet 1 tab PO DAILY acetaminophen 500 mg Tablet 1,000 mg PO Q8 PRN (Reason: fever or pain) atorvastatin 40 mg tablet 40 mg PO DAILY furosemide 20 mg tablet 40 mg PO DAILY magnesium oxide 400 mg (241.3 mg magnesium) tablet 400 mg PO DAILY sodium bicarbonate 650 mg tablet 650 mg PO BID metformin 500 mg tablet extended release 24 hr 500 mg PO QPM spironolactone 50 mg tablet 50 mg PO DAILY thiamine HCl (vitamin B1) 100 mg tablet 100 mg PO DAILY pantoprazole 20 mg tablet,delayed release (DR/EC) 20 mg PO DAILY zinc sulfate 50 mg zinc (220 mg) tablet 50 mg PO DAILY midodrine 10 mg tablet 10 mg PO TID 30 Days Qty: 90 0RF Rx Instructions: do not give last dose of day after 6PM or within 4 hrs of bedtime ascorbic acid (vitamin C) 500 mg tablet 500 mg PO BID Qty: 60 2RF lactulose [Constulose] 10 gram/15 mL solution 15 ml PO TID PRN (Reason: constipation) Patient Comments: HASNT HAD TO TAKE Rx Instructions: Goal to have 2 soft bowel movements per day vancomycin 125 mg capsule 125 mg PO Q6H 35 Days Qty: 56 0RF Rx Instructions: 4x a day for 7 days, then 2x a day for 7 days, then 1x a day for 7 days, then 1x q48h for 14 days. L.acidoph,saliva-B.bif-S.therm 175 mg Capsule 1 cap PO TID Qty: 120 0RF potassium, sodium phosphates 280-160-250 mg Powder In Packet 1 packet PO BID Qty: 100 0RF levofloxacin 500 mg tablet 500 mg PO DAILY 2 Days Qty: 4 0RF Primary Care Provider: Josy Elias Referrals: Josy Elias NP-C [Primary Care Provider] - Activity Restrictions/Additional Instructions: Your workup today did not show any sign of active heart damage or abnormal heartrhythm. Your urine does show changes concerning for infection which is most likely driving your elevated blood sugars. Please take the antibiotic as directed and continue all of your home medication as directed by your doctor. Please return to the ER should you have any further concerns Print Language: Swedish Disposition Disposition: Home, Self Care What to do if you have Problems For any increased pain, shortness of breath, bleeding, nausea or vomiting, chestpain, or any unexpected problems, contact your Primary Care Provider. Call [facility] ([phone]) or report to the closest Emergency Room. Call 911 if necessary. 12/30/24 0519 <Electronically signed by Mina Blood DO> Cosigner Signature (if applicable): CC: YG Elias ~ Signed [facility] Work Phone: Discharge summary Author Roddy Reeves [facility] Note Date/Time January 02, 2025 6:00a m [facility] Medical Records Department [address] [place] [address] Emergency Department Summary 01/02/25 MR#: [id number] Acct: [id number] Name: FRANKLIN ARCHULETA Rep #:[id number] : 1965 59 From: Roddy Reeves DO PCP: YG Pena Status:REG E R Location: ED HPI History of Present Illness Chief Complaint: Weakness Narrative Narrative: Patient is a 59-year-old male past medical history of hypertension, hyperlipidemia, thrombocytopenia, diabetes, hepatic encephalopathy, type 2 diabetes, hyponatremia who presents to the emergency department the chief complaint of fall and weakness. Patient states that he had a fall earlier today and he states that he does not think he hit his head but cannot exactly recall. He states that he feels extremely weak and notes that he has had vomiting for 2 days as well. He states that he was here recently and was sent home. [facility] Medical History Weakness Diarrhea Sepsis Acidosis, lactic Acute hypotension Acute UTI Chronic hypotension Obesity (BMI 30-39.9) Chronic back pain ISABEL (acute kidney injury) Hypotension Hepatic encephalopathy Hyperbilirubinemia 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) HLD (hyperlipidemia) HTN (hypertension) Thrombocytopenia Chronic anemia Former tobacco use Diabetes mellitus, type 2 ABBY on CPAP Back pain Home Medications ?Medication ?Instructions ?Recorded ?Last Taken ?Type rifaximin 550 mg tablet (Xifaxan) 550 mg PO BID diarrh ea #60 tabs 09/02/24 11/28/24 Rx insulin lispro 100 unit/mL See Protocol subcut ACHS di abetes 09/14/24 Unknown Rx subcutaneous pen (Humalog KwikPen #0 mL (U-100) Insulin) acetaminophen 500 mg tablet 1,000 mg PO Q8 PRN fever o r pain 10/28/24 Unknown History calcium 500 mg (as 1 tab PO DAILY supplement 11/28/24 History carbonate)-vitamin D3 5 mcg (200 unit) tablet (Oyster Shell Calcium-Vitamin D3) folic acid 1 mg tablet 1 mg PO DAILY supplement 11/28/24 History atorvastatin 40 mg tablet 40 mg PO DAILY cholesterol 0 11/21/24 11/27/24 History furosemide 20 mg tablet 40 mg PO DAILY diuretic 11/0311/28/24 History magnesium oxide 400 mg (241.3 mg 400 mg PO DAILY suppl ement 11/21/24 11/28/24 History magnesium) tablet metformin 500 mg tablet,extended 500 mg PO QPM diabete s 11/21/24 11/27/24 History release 24 hr pantoprazole 20 mg tablet,delayed 20 mg PO DAILY reflu x 11/21/24 11/28/24 History release sodium bicarbonate 650 mg tablet 650 mg PO BID supplem ent 11/21/24 11/28/24 History spironolactone 50 mg tablet 50 mg PO DAILY diuretic 11/28/24 History thiamine HCl (vitamin B1) 100 mg 100 mg PO DAILY suppl ement 11/21/24 Unknown History tablet zinc sulfate 50 mg zinc (220 mg) 50 mg PO DAILY supple ment 11/21/24 11/28/24 History tablet ascorbic acid (vitamin C) 500 mg 500 mg PO BID vitamin #60 tabs 11/25/24 11/28/24 Rx tablet midodrine 10 mg tablet 10 mg PO TID blood pressure 1 11/25/24 Unknown Rx month #90 tabs lactulose 10 gram/15 mL oral 15 ml PO TID PRN constipa tion 11/28/24 Unknown History solution (Constulose) L.acidophil,salivari-Bifido 1 cap PO TID #120 caps 08/28 Unknown Rx bifidum-Strep thermoph 175 mg capsule potassium, sodium phosphates 280 1 packet PO BID #100 ea 12/02/24 Unknown Rx mg-160 mg-250 mg oral powder packet vancomycin 125 mg capsule 125 mg PO Q6H 35 days #56 ca ps 12/02/24 Unknown Rx levofloxacin 500 mg tablet 500 mg PO DAILY infection 2 days 12/26/24 Unknown Rx #4 tabs cephalexin 500 mg capsule 500 mg PO TID 7 days #21 cap s 12/30/24 Unknown Rx Allergy/AdvReac Type Severity Reaction Status Date / Time No Known Allergies Allergy Verified 01/02/25 03:00 Family History Mother Heart disease Hypertension CAD (coronary artery disease) Myocardial infarction Father Hypertension Heart disease Heart failure Surgical History History of tonsillectomy and adenoidectomy Social History household members: significant other Smoking Status: Former smoker how long ago did patient quit smoking: Quit ~ 3-4 months prior (fall 2023), smoked 1.5 ppd since teen until quit. alcohol intake: never substance use type: does not use ROS ROS ED ROS Narrative Constitutional: Denies fevers, chills, headaches Eyes: Denies change in vision double vision blurred vision Cardiovascular: Denies chest pain Respiratory: Denies shortness of breath Abdomen: Complains of nausea and vomiting as noted above : Denies urinary symptoms Neurological: Complains of generalized weakness denies any numbness or tingling Musculoskeletal: Denies back pain Skin: Denies any rashes or lesions EXAM Physical Exam Narrative Exam Narrative: General: Patient lying in bed rest comfortably did not be to be in acute distress Head: Atraumatic, normocephalic Eyes: PERRL bilateral, EOMI bilateral, no conjunctival injection noted Neck: Soft and supple, trach midline Cardiovascular: Regular rate and rhythm Respiratory: Clear to auscultation bilaterally Abdomen: Soft, diffuse tenderness to palpation no rebound or guarding on exam Extremities: +4/5 strength noted in the bilateral upper and lower extremities, radial pulses +2/4 in the bilateral extremities Neurological: Patient following commands that he was at [facility] that wewere in the end of December going into January Skin: Warm, dry, intact Const Vital Signs: 01/02/25 02:59 01/02/25 02:59 01/02/25 04:59 Temperature 98.5 F Temperature Source Oral Pulse Rate 72 68 Respiratory Rate 18 16 Respiratory Effort Normal Respiratory Pattern Normal Blood Pressure 97/68 115/57 L Blood Pressure Mean 77 76 Pulse Ox 98 Oxygen Delivery Method Room Air MDM MDM MDM Narrative Medical decision making narrative: Patient is a 51-year-old male who presented to the emergency department with chief complaint of fall and generalized weakness. On the differential diagnose includes but not limited to ACS, pneumonia, electrolyte abnormality, UTI. Once workup is obtained reviewed he will be reevaluated. Patient be given 30 cc/kg bolus of IV fluids. Previous records were reviewed the patient was just here on 12/26/2024 and 12/30/2024 was ultimately diagnosed with UTI and given a gram of Rocephin was sent home on oral antibiotics. The culture result was reviewed which showed GPCposs Enterococcus 1000 10,000 CFU per mL with mixed gram-positive organisms as well 25,000-50,000 CFU per mL Patient CBC was reviewed and was significant for leukocytosis of 12,000, hemoglobin 9.5, platelet count was 171. Patient's sodium was 132, potassium lowat 2.6 he will be given 40 mill equivalents orally and 40 mill equivalents intravenously, patient anion gap of 17, creatinine was elevated to too 3.54 which is up from 12/30/2024. Patient's magnesium level pending, AST and ALT normal at 37 and 23 respectively. Patient lipase normal at 45, urinalysis reviewed and appears to be worsening with 500 leukocyte esterase with 25-50 white cells and 3+ bacteria he will be given dose of Zosyn. Patient CT head andbrain without contrast was reviewed and showed no acute intracranial hemorrhage mass effect or calvarial fracture moderate volume loss atrophy again noted. Mild left maxillary sinus disease mildly decreased from the prior study. Patient CT cervical spine reviewed showed no fracture or malalignment multilevelspondylitic discogenic change greatest at C5-C6. CT abdomen/pelvis without contrast reviewed and showed no evidence of acute intra-abdominal traumatic injury., Similar appearance of cirrhosis splenomegaly and varices. Left double-J ureteral stent again appears in place with similar appearance of a large left renal staghorn and some associated left pelvic atelectasis unchanged. Multilevel vertebral compression deformities not significantly changed in appearance. Patient given 4.5 g of Zosyn at 4:45 AM. Reperfusion assessment was performed and patient remains normotensive no vasopressors indicated. Patient's case will be discussed with hospitalist for admission for his generalized weakness, ISABEL, UTI. Discussed case with hospitalist Dr. Fuchs who accept patient for admission. Patient notified is agreeable to plan all questions answered. Lab Data Labs: Laboratory Results - last 24 hr 01/02/25 01/02/25 01/02/25 03:30 03:54 04:18 WBC 12.7 H RBC 3.21 L Hgb 9.5 L Hct 28.0 L MCV 87.2 MCH 29.6 MCHC 33.9 RDW Std Deviation 51.1 H RDW Coeff of Francis 16.4 H Plt Count 171 MPV 12.1 H Immature Gran % (Auto) 0.600 Neut % (Auto) 68.0 Lymph % (Auto) 12.2 L [place] % (Auto) 11.9 H Eos % (Auto) 6.9 H Baso % (Auto) 0.4 Absolute Neuts (auto) 8.6 H Absolute Lymphs (auto) 1.55 Nucleated RBC % 0 Sodium 132 L Potassium 2.6 L* Chloride 95 L Carbon Dioxide 19.6 L Anion Gap 17 H BUN 46 H Creatinine 3.54 H Estim Creat Clear Calc 22.75 L Est GFR (MDRD) Non-Af 19 L BUN/Creatinine Ratio 12.9 Glucose 164 H Calcium 9.0 Magnesium 2.0 Total Bilirubin 0.90 AST 37 ALT 23 Alkaline Phosphatase 191 H Total Protein 6.1 Albumin 2.8 L Globulin 3.4 Albumin/Globulin Ratio 0.8 L Lipase 45 Urine Color Red Urine Clarity Turbid Urine pH 6.0 Ur Specific Jonancy 1.015 Urine Protein 100 H Urine Glucose (UA) Normal Urine Ketones 5 H Urine Occult Blood 250 H Urine Nitrite Negative Urine Bilirubin Negative Urine Urobilinogen Normal Ur Leukocyte Esterase 500 H Urine RBC > 100 SEEN Urine WBC 25-50 SEEN Ur Squamous Epith Cells 0 SEEN Urine Bacteria 3+ Urine Mucus 0 SEEN Ethyl Alcohol < 10.1 Radiography Diagnostic Testing: Clinical Impression(s) from Imaging Studies Abdomen/Pelvis CT 01/02/25 03:45 IMPRESSION: No evidence of acute intra-abdominal traumatic injury on noncontrast imaging. Similar appearance of cirrhosis, splenomegaly and varices and cholelithiasis as above. Left double-J ureteral stent again appears in place with similar appearance of the large left renal staghorn and some associated left pelvicaliectasis, unchanged. Multilevel vertebral compression deformities are not significantly changed in appearance. A linear area of sclerosis left sacrum suggesting insufficiency fracture again noted, unchanged. Reading Location: [facility] Brain CT 01/02/25 03:55 IMPRESSION: No intracranial hemorrhage, mass effect or calvarial fracture. Moderate volume loss, atrophy again noted. Mild left maxillary sinus disease appears mildly decreased from the prior study. Reading Location: [facility] Cervical Spine CT 01/02/25 03:55 IMPRESSION: No fracture or malalignment. Multilevel spondylosis/discogenic change greatest at C5-6 Reading Location: [facility] Discharge Plan Triage Chief Complaint: Weakness ED Provider: Roddy Reeves Dx/Rx/DC Orders Clinical Impression: Hypokalemia, Generalized weakness, Urinary tract infection, Acute kidney injury, Fall Prescriptions: No Action Xifaxan 550 mg Tablet 550 mg PO BID Qty: 60 0RF insulin lispro [Humalog KwikPen Insulin] 100 unit/mL Insulin Pen See Protocol subcut ACHS Qty: 0 0RF Protocol: 4. Sliding Scale Insulin High-Med Dosing Condition: 150-199 mg/dl = 2 units Condition: 200-259 mg/dl = 4 units Condition: 260-324 mg/dl = 6 units Condition: 325-374 mg/dl = 8 units Condition: 375-409 mg/dl = 10 units Condition: 410-449 mg/dl = 11 units Condition: Greater than 449 call physician Protocol Text: Suggested for: - Patients on Total Daily Insulin Dose of 56-80 units - Patient who are known to be insulin resistant or septic HIGH MEDIUM DOSING ALGORITHM Patient Comments: PT DOESNT TAKE OFTEN folic acid 1 mg tablet 1 mg PO DAILY calcium carbonate-vitamin D3 [Oyster Shell Calcium-Vit D3] 500 mg-5 mcg (200 unit) tablet 1 tab PO DAILY acetaminophen 500 mg Tablet 1,000 mg PO Q8 PRN (Reason: fever or pain) atorvastatin 40 mg tablet 40 mg PO DAILY furosemide 20 mg tablet 40 mg PO DAILY magnesium oxide 400 mg (241.3 mg magnesium) tablet 400 mg PO DAILY sodium bicarbonate 650 mg tablet 650 mg PO BID metformin 500 mg tablet extended release 24 hr 500 mg PO QPM spironolactone 50 mg tablet 50 mg PO DAILY thiamine HCl (vitamin B1) 100 mg tablet 100 mg PO DAILY pantoprazole 20 mg tablet,delayed release (DR/EC) 20 mg PO DAILY zinc sulfate 50 mg zinc (220 mg) tablet 50 mg PO DAILY midodrine 10 mg tablet 10 mg PO TID 30 Days Qty: 90 0RF Rx Instructions: do not give last dose of day after 6PM or within 4 hrs of bedtime ascorbic acid (vitamin C) 500 mg tablet 500 mg PO BID Qty: 60 2RF lactulose [Constulose] 10 gram/15 mL solution 15 ml PO TID PRN (Reason: constipation) Patient Comments: HASNT HAD TO TAKE Rx Instructions: Goal to have 2 soft bowel movements per day vancomycin 125 mg capsule 125 mg PO Q6H 35 Days Qty: 56 0RF Rx Instructions: 4x a day for 7 days, then 2x a day for 7 days, then 1x a day for 7 days, then 1x q48h for 14 days. L.acidoph,saliva-B.bif-S.therm 175 mg Capsule 1 cap PO TID Qty: 120 0RF potassium, sodium phosphates 280-160-250 mg Powder In Packet 1 packet PO BID Qty: 100 0RF levofloxacin 500 mg tablet 500 mg PO DAILY 2 Days Qty: 4 0RF cephalexin 500 mg capsule 500 mg PO TID 7 Days Qty: 21 0RF Primary Care Provider: Josy Elias Referrals: Josy Elias NP-C [Primary Care Provider] - Print Language: Swedish Disposition Disposition: Acute Care Hospital [facility] What to do if you have Problems For any increased pain, shortness of breath, bleeding, nausea or vomiting, chestpain, or any unexpected problems, contact your Primary Care Provider. Call [facility] ([phone]) or report to the closest Emergency Room. Call 911 if necessary. 01/02/25 0600 <Electronically signed by Roddy Reeves DO> Cosigner Signature (if applicable): CC: BAG HANGER-C Josy Elias ~ Signed [facility] Work Phone: Evaluation note* Diagnosis Other ascites- Primary Abdominal pain, generalized Cirrhosis of liver with ascites, unspecified hepatic cirrhosis type (Multi) Peripheral edema Edema Coagulopathy (Multi) Other and unspecified coagulation defects Hyperbilirubinemia Disorders of bilirubin excretion documented in this encounter [facility] Work Phone: Evaluation note* Diagnosis Metabolic dysfunction-associated steatohepatitis (MASH)- Primary [facility] Diagnosis Liver transplant candidate- Primary Metabolic dysfunction-associated steatohepatitis (MASH) [facility] Diagnosis Pre-transplant evaluation for liver transplant- Primary [facility]* Diagnosis Liver transplant candidate- Primary Pre-operative clearance Preoperative examination, unspecified documented [facility]* Diagnosis Screening for genitourinary condition Screening for other and unspecified genitourinary condition [facility] Buster Fuchs [facility] Note Date/Time January 02, 2025 6:44a m [facility] Medical Records Department [address] [place] [address] H&P Exam - Hospitalist 01/02/25 0556 MR#: [id number] Acct: [id number] Name: FRANKLIN ARCHULETA Rep #:[id number] : 1965 59 From: Buster duarte MD PCP: YG Pena Status:ADM I N Location: [place] [id number] HPI - General General Date of Admission: 01/02/25 HPI Narrative FRANKLIN ARCHULETA, is a 59 M who presents to the hospital with weakness and a fall. He did not hit his head or lose consciousness. He has had an extensive recent medical history with cirrhosis and UTI with staghorn calculus, he was in the ICUin October. 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 Was not considered to be a liver transplant candidate and was placed on anticoagulation. He has had a couple of readmissions for weakness and debility. [place] to possibly have aUTI given a staghorn calculus in his stent, I do think that his urine is always can appear contaminated and given his recent history with C. difficile not necessarily an antibiotic candidate. He is demonstrating signs of renal failurewith creatinine of 3.54, during his previous evaluations at this hospital his renal function was normal at 0.8 but he has steadily been climbing since the beginning of December. He is on I believe Lasix and Aldactone for his cirrhosis. Heis also hypokalemic, he is on lactulose so aside from the diarrhea he says that he has been having it couple episodes of vomiting over the last couple days. Heis receiving potassium infusion in the ER. [facility] Medical History Weakness Diarrhea Sepsis Acidosis, lactic Acute hypotension Acute UTI Chronic hypotension Obesity (BMI 30-39.9) Chronic back pain ISABEL (acute kidney injury) Hypotension Hepatic encephalopathy Hyperbilirubinemia 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) HLD (hyperlipidemia) HTN (hypertension) Thrombocytopenia Chronic anemia Former tobacco use Diabetes mellitus, type 2 ABBY on CPAP Back pain Home Medications ?Medication ?Instructions ?Recorded ?Last Taken ?Type rifaximin 550 mg tablet (Xifaxan) 550 mg PO BID diarrh ea #60 tabs 09/02/24 11/28/24 Rx insulin lispro 100 unit/mL See Protocol subcut ACHS di abetes 09/14/24 Unknown Rx subcutaneous pen (Humalog KwikPen #0 mL (U-100) Insulin) acetaminophen 500 mg tablet 1,000 mg PO Q8 PRN fever o r pain 10/28/24 Unknown History calcium 500 mg (as 1 tab PO DAILY supplement 11/28/24 History carbonate)-vitamin D3 5 mcg (200 unit) tablet (Oyster Shell Calcium-Vitamin D3) folic acid 1 mg tablet 1 mg PO DAILY supplement 11/28/24 History atorvastatin 40 mg tablet 40 mg PO DAILY cholesterol 0 11/21/24 11/27/24 History furosemide 20 mg tablet 40 mg PO DAILY diuretic 11/0311/28/24 History magnesium oxide 400 mg (241.3 mg 400 mg PO DAILY suppl ement 11/21/24 11/28/24 History magnesium) tablet metformin 500 mg tablet,extended 500 mg PO QPM diabete s 11/21/24 11/27/24 History release 24 hr pantoprazole 20 mg tablet,delayed 20 mg PO DAILY reflu x 11/21/24 11/28/24 History release sodium bicarbonate 650 mg tablet 650 mg PO BID supplem ent 11/21/24 11/28/24 History spironolactone 50 mg tablet 50 mg PO DAILY diuretic 11/28/24 History thiamine HCl (vitamin B1) 100 mg 100 mg PO DAILY suppl ement 11/21/24 Unknown History tablet zinc sulfate 50 mg zinc (220 mg) 50 mg PO DAILY supple ment 11/21/24 11/28/24 History tablet ascorbic acid (vitamin C) 500 mg 500 mg PO BID vitamin #60 tabs 11/25/24 11/28/24 Rx tablet midodrine 10 mg tablet 10 mg PO TID blood pressure 1 11/25/24 Unknown Rx month #90 tabs lactulose 10 gram/15 mL oral 15 ml PO TID PRN constipa tion 11/28/24 Unknown History solution (Constulose) L.acidophil,salivari-Bifido 1 cap PO TID #120 caps 08/28 Unknown Rx bifidum-Strep thermoph 175 mg capsule potassium, sodium phosphates 280 1 packet PO BID #100 ea 12/02/24 Unknown Rx mg-160 mg-250 mg oral powder packet vancomycin 125 mg capsule 125 mg PO Q6H 35 days #56 ca ps 12/02/24 Unknown Rx levofloxacin 500 mg tablet 500 mg PO DAILY infection 2 days 12/26/24 Unknown Rx #4 tabs cephalexin 500 mg capsule 500 mg PO TID 7 days #21 cap s 12/30/24 Unknown Rx Allergy/AdvReac Type Severity Reaction Status Date / Time No Known Allergies Allergy Verified 01/02/25 03:00 Family History Mother Heart disease Hypertension CAD (coronary artery disease) Myocardial infarction Father Hypertension Heart disease Heart failure Surgical History History of tonsillectomy and adenoidectomy Social History household members: significant other Smoking Status: Former smoker how long ago did patient quit smoking: Quit ~ 3-4 months prior (fall 2023), smoked 1.5 ppd since teen until quit. alcohol intake: never substance use type: does not use ROS Constitutional Constitutional: Reports weakness; Denies chills, fatigue, fever(s) or malaise Eyes Eyes: Denies blurry vision ENT HEENT: Denies headache(s) or nasal discharge Cardiovascular Cardiovascular: Denies chest pain, dyspnea on exertion or syncope Respiratory/Chest Respiratory/Chest: Denies cough, shortness of breath at rest or shortness of breath with exertion Gastrointestinal Gastrointestinal: Reports vomiting; Denies constipation, diarrhea or nausea Genitourinary Genitourinary: Denies dysuria Neurologic Neurologic: Denies focal weakness, numbness or tremor(s) Psychiatric Psychiatric: Denies anxiety or depression Vital Signs Vital Signs Vital Signs: 01/02/25 02:59 01/02/25 02:59 01/02/25 04:59 Temperature 98.5 F Temperature Source Oral Pulse Rate 72 68 Respiratory Rate 18 16 Respiratory Effort Normal Respiratory Pattern Normal Blood Pressure 97/68 115/57 L Blood Pressure Mean 77 76 Pulse Ox 98 Oxygen Delivery Method Room Air Weight Weight: 186 lb 4.65 oz Body Mass Index (BMI) 27.5 Physical Exam Narrative General: Alert, Oriented x3, Cooperative, No apparent distress HEENT: Atraumatic, PERRLA, EOMI, Normocephalic Oral: Moist Mucosa, poor dentition Neck: Supple, No JVD Lungs: Diminished, Normal air movement, No rhonchi, No wheeze, No rales Cardiovascular: Regular rate, Regular Rhythm, Normal S1, Normal S2, No murmurs Abdomen: Soft, Non Tender, Non-Distended, No Hepato-splenomegaly Extremities: Edema, Capillary Refill Less than 3 Seconds Skin: No rashes, No breakdown Musculoskeletal: Tenderness to palpation of his mid left thigh from his frequentfalls over the last couple days Neurological: No focal neurological deficits, moves all extremities Psych/Mental Status: Normal Affect, Appropriate Results Lab / Micro Data 01/02/25 03:30 01/02/25 03:30 Labs: Laboratory Results - last 24 hr 01/02/25 03:30: WBC 12.7 H, RBC 3.21 L, Hgb 9.5 L, Hct 28.0 L, MCV 87.2, MCH 29.6, MCHC 33.9, RDW Std Deviation 51.1 H, RDW Coeff of Francis 16.4 H, Plt Count 171, MPV 12.1 H, Immature Gran % (Auto) 0.600, Neut % (Auto) 68.0, Lymph % (Auto) 12.2 L, [place] % (Auto) 11.9 H, Eos % (Auto) 6.9 H, Baso % (Auto) 0.4, Absolute Neuts (auto) 8.6 H, Absolute Lymphs (auto) 1.55, Nucleated RBC % 0, Sodium 132 L, Potassium 2.6 L*, Chloride 95 L, Carbon Dioxide 19.6 L, Anion Gap 17 H, BUN 46 H, Creatinine 3.54 H, Estim Creat Clear Calc 22.75 L, Est GFR (MDRD) Non-Af 19 L, BUN/Creatinine Ratio 12.9, Glucose 164 H, Calcium 9.0, TotalBilirubin 0.90, AST 37, ALT 23, Alkaline Phosphatase 191 H, Total Protein 6.1, Albumin 2.8 L, Globulin 3.4, Albumin/Globulin Ratio 0.8 L, Lipase 45 01/02/25 03:54: Urine Color Red, Urine Clarity Turbid, Urine pH 6.0, Ur SpecificGravity 1.015, Urine Protein 100 H, Urine Glucose (UA) Normal, Urine Ketones 5 H, Urine Occult Blood 250 H, Urine Nitrite Negative, Urine Bilirubin Negative, Urine Urobilinogen Normal, Ur Leukocyte Esterase 500 H, Urine RBC > 100 SEEN, Urine WBC 25-50 SEEN, Ur Squamous Epith Cells 0 SEEN, Urine Bacteria 3+, Urine Mucus 0 SEEN 01/02/25 04:18: Ethyl Alcohol < 10.1 Imaging Radiology Impression Abdomen/Pelvis CT 01/02/25 03:45 IMPRESSION: No evidence of acute intra-abdominal traumatic injury on noncontrast imaging. Similar appearance of cirrhosis, splenomegaly and varices and cholelithiasis as above. Left double-J ureteral stent again appears in place with similar appearance of the large left renal staghorn and some associated left pelvicaliectasis, unchanged. Multilevel vertebral compression deformities are not significantly changed in appearance. A linear area of sclerosis left sacrum suggesting insufficiency fracture again noted, unchanged. Reading Location: [facility] Brain CT 01/02/25 03:55 IMPRESSION: No intracranial hemorrhage, mass effect or calvarial fracture. Moderate volume loss, atrophy again noted. Mild left maxillary sinus disease appears mildly decreased from the prior study. Reading Location: [facility] Cervical Spine CT 01/02/25 03:55 IMPRESSION: No fracture or malalignment. Multilevel spondylosis/discogenic change greatest at C5-6 Reading Location: [facility] Assessment & Plan Assessment/Plan (1) Fall: (2) Acute kidney injury: PLAN: Plan 1. Weakness and debility with a fall in the setting of significant hypokalemia and renal failure and severe hypokalemia ? He has a staghorn calculus on the left with left ureteral stent ? Continue with gentle hydration given his history of cirrhosis ? Urine was a little bit dirty on his previous evaluation in the emergency room however he was not clinically significant based on colony-forming units and given his history of C. difficile we will hold off antibiotics, he did receive adose of Zosyn in the emergency room. He had been discharged on 7 days of Keflexon 12/30/2024 and he had been discharged on 4 days of Levaquin on 12/26/2024 from the emergency room ? PT/OT for evaluation 2. Cirrhosis due to NAFLD/GERD/extensive portal vein thrombosis ? Can resume his home liver medications when verified ? Given his renal failure we will hold off of any Lasix or Aldactone ? Can resume his PPI when verified ? Can resume his home anticoagulation when verified 3. C. difficile colitis ? He was placed on a prolonged taper which she should be close to completing, can resume once verified 4. DM2 ? Will hold his home metformin ? Continue with sliding scale insulin ? Accu-Cheks ACHS ? Will monitor make adjustments as necessary DVT: Home anticoagulation once verified Charges/Coding Visit Charges Inpatient E&M: [id number] Init Hosp L2 01/02/25 0644 <Electronically signed by Buster Fuchs MD> Cosigner Signature (if applicable): CC: YG Elias; Dr. Buster Fuchs MD~ Signed [facility] Work Phone: Hospital Discharge instructions* Attachments The following attachments cannot be sent through Care Everywhere. * Cirrhosis (Swedish) * Abdominal pain (Swedish) documented in this [facility] Work Phone: Hospital Discharge instructions Additional Instructions Your workup today did not show any sign of active heart damage or abnormal heart rhythm. Your urine does show changes concerning for infection which is most likely driving your elevated blood sugars. Please take the antibiotic as directed and continue all of your home medication as directed by your doctor. Please return to the ER should [facility] have any [facility]: Reason for referral (narrative)No reason for referral information availableWMarion Hospital Work Phone: Summary Purpose Family History Relationship Condition Age at Onset Recorded Date/T edis mother Cardiac disease Unknown Hypertension Unknown Coronary artery disease Unknown Myocardial infarction Unknown father Hypertension Unknown Cardiac disease Unknown Heart failure Unknown Advance Directives Date Activated Date Inactivated Comments 11/11/2024 7:22 AM 11/18/2024 3:02 PM Question Answer Comments Full Code Order Discussed With: Patient Advance Directive Response Recorded Date/ Time Living Will No August 21 2:51pm Power of Hogshead Opener No August 21, 2024 2:51pm Living Will No August 30 12:39am Power of Hogshead Opener No August 30, 2024 12:39am Living Will No September 05 4:42am Power of Hogshead Opener No September 05, 2024 4:42am Advance Directive Response Recorded Date/ Time Living Will No August 21 2:51pm Do you have a Healthcare Power of Hogshead Opener? No August 21, 2024 2:51pm Living Will No August 30 12:39am Do you have a Healthcare Power of Hogshead Opener? No August 30, 2024 12:39am Living Will No September 05 4:42am Do you have a Healthcare Power of Hogshead Opener? No September 05, 2024 4:42am Living Will No October 28, 2024 5:24pm Do you have a Healthcare Power of Hogshead Opener? No October 28, 2024 5:24pm Advance Directive Response Recorded Date/ Time Living Will No August 21 2:51pm Do you have a Healthcare Power of Hogshead Opener? No August 21, 2024 2:51pm Living Will No August 30 12:39am Do you have a Healthcare Power of Hogshead Opener? No August 30, 2024 12:39am Living Will No September 05 4:42am Do you have a Healthcare Power of Hogshead Opener? No September 05, 2024 4:42am Living Will No October 29, 2024 1:46am Do you have a Healthcare Power of Hogshead Opener? No October 29, 2024 1:46am Date Activated Date Inactivated Comments 11/11/2024 7:22 AM Question Answer Comments Full Code Order Discussed With: Patient Date Activated Date Inactivated Comments 11/11/2024 7:22 AM Advance Directive Response Recorded Date/ Time Living Will No August 21 2:51pm Do you have a Healthcare Power of Hogshead Opener? No August 21, 2024 2:51pm Living Will No August 30 12:39am Do you have a Healthcare Power of Hogshead Opener? No August 30, 2024 12:39am Living Will No September 05 4:42am Do you have a Healthcare Power of Hogshead Opener? No September 05, 2024 4:42am Living Will No October 29, 2024 1:46am Do you have a Healthcare Power of Hogshead Opener? No October 29, 2024 1:46am Living Will Yes November 21, 2024 1:32am Do you have a Healthcare Power of Hogshead Opener? Yes November 21, 2024 1:32am Name of Medical Power of Hogshead Opener anne Hernandez November 21, 2024 1:32am Advance Directive Response Recorded Date/ Time Living Will No August 21 2:51pm Do you have a Healthcare Power of Hogshead Opener? No August 21, 2024 2:51pm Living Will No August 30 12:39am Do you have a Healthcare Power of Hogshead Opener? No August 30, 2024 12:39am Living Will No September 05 4:42am Do you have a Healthcare Power of Hogshead Opener? No September 05, 2024 4:42am Living Will No October 29, 2024 1:46am Do you have a Healthcare Power of Hogshead Opener? No October 29, 2024 1:46am Living Will Yes November 21, 2024 5:32am Do you have a Healthcare Power of Hogshead Opener? Yes November 21, 2024 5:32am Name of Medical Power of Hogshead Opener anne Hernandez November 21, 2024 5:32am Do you have a Healthcare Power of Hogshead Opener? No November 28, 2024 5:49pm Advance Directive Response Recorded Date/ Time Living Will No August 30 12:39am Do you have a Healthcare Power of Hogshead Opener? No August 30, 2024 12:39am Living Will No September 05 4:42am Do you have a Healthcare Power of Hogshead Opener? No September 05, 2024 4:42am Living Will No October 29, 2024 1:46am Do you have a Healthcare Power of Hogshead Opener? No October 29, 2024 1:46am Living Will Yes November 21, 2024 5:32am Do you have a Healthcare Power of Hogshead Opener? Yes November 21, 2024 5:32am Name of Medical Power of Hogshead Opener anne Hernandez November 21, 2024 5:32am Do you have a Healthcare Power of Hogshead Opener? No November 28, 2024 5:49pm Advance Directive Response Recorded Date/ Time Living Will No August 30 12:39am Do you have a Healthcare Power of Hogshead Opener? No August 30, 2024 12:39am Living Will No September 05 4:42am Do you have a Healthcare Power of Hogshead Opener? No September 05, 2024 4:42am Living Will No October 29, 2024 1:46am Do you have a Healthcare Power of Hogshead Opener? No October 29, 2024 1:46am Living Will Yes November 21, 2024 5:32am Do you have a Healthcare Power of Hogshead Opener? Yes November 21, 2024 5:32am Name of Medical Power of Hogshead Opener anne Hernandez November 21, 2024 5:32am Do you have a Healthcare Power of Hogshead Opener? No November 28, 2024 5:49pm Do you have a Healthcare Power of Hogshead Opener? No December 26, 2024 10:02am Advance Directive Response Recorded Date/ Time Living Will No August 30 12:39am Do you have a Healthcare Power of Hogshead Opener? No August 30, 2024 12:39am Living Will No September 05 4:42am Do you have a Healthcare Power of Hogshead Opener? No September 05, 2024 4:42am Living Will No October 29, 2024 1:46am Do you have a Healthcare Power of Hogshead Opener? No October 29, 2024 1:46am Living Will Yes November 21, 2024 5:32am Do you have a Healthcare Power of Hogshead Opener? Yes November 21, 2024 5:32am Name of Medical Power of Hogshead Opener anne Hernandez November 21, 2024 5:32am Do you have a Healthcare Power of Hogshead Opener? No November 28, 2024 5:49pm Do you have a Healthcare Power of Hogshead Opener? No December 26, 2024 10:02am Do you have a Healthcare Power of Hogshead Opener? No December 30, 2024 1:06am Advance Directive Response Recorded Date/ Time Do you have a Healthcare Power of Hogshead Opener? No January 02, 2025 2:59am Living Will No September 05 4:42am Do you have a Healthcare Power of Hogshead Opener? No September 05, 2024 4:42am Living Will No October 29, 2024 1:46am Do you have a Healthcare Power of Hogshead Opener? No October 29, 2024 1:46am Living Will Yes November 21, 2024 5:32am Do you have a Healthcare Power of Hogshead Opener? Yes November 21, 2024 5:32am Name of Medical Power of Hogshead Opener anne Hernandez November 21, 2024 5:32am Do you have a Healthcare Power of Hogshead Opener? No November 28, 2024 5:49pm Do you have a Healthcare Power of Hogshead Opener? No December 26, 2024 10:02am Do you have a Healthcare Power of Hogshead Opener? No December 30, 2024 1:06am Advance Directive Response Recorded Date/ Time Do you have a Healthcare Power of Hogshead Opener? No January 02, 2025 8:14am Living Will No September 05 4:42am Do you have a Healthcare Power of Hogshead Opener? No September 05, 2024 4:42am Living Will No October 29, 2024 1:46am Do you have a Healthcare Power of Hogshead Opener? No October 29, 2024 1:46am Living Will Yes November 21, 2024 5:32am Do you have a Healthcare Power of Hogshead Opener? Yes November 21, 2024 5:32am Name of Medical Power of Hogshead Opener anne Hernandez November 21, 2024 5:32am Do you have a Healthcare Power of Hogshead Opener? No November 28, 2024 5:49pm Do you have a Healthcare Power of Hogshead Opener? No December 26, 2024 10:02am Do you have a Healthcare Power of Hogshead Opener? No December 30, 2024 1:06am Chief Complaint and Reason for Visit Chief Complaint Admit Date fall, back pain August 21, 2024 1 :49pm HEPATIC ENCEPHALOPATHY, ISABEL, HYPOTENSION August 29, 2024 10:09pm HEPATIC ENCEPHALOPATHY, ISABEL, HYPOTENSION August 30, 2024 7:58am HEPATIC ENCEPHALOPATHY, ISABEL, HYPOTENSION August 30, 2024 4:52pm HEPATIC ENCEPHALOPATHY, ISABEL, HYPOTENSION August 30, 2024 6:09pm HEPATIC ENCEPHALOPATHY, ISABEL, HYPOTENSION August 31, 2024 7:38am HEPATIC ENCEPHALOPATHY, ISABEL, HYPOTENSION August 31, 2024 3:38pm HEPATIC ENCEPHALOPATHY, ISABEL, HYPOTENSION August 31, 2024 10:21pm HEPATIC ENCEPHALOPATHY, ISABEL, HYPOTENSION September 01, 2024 4:54pm HEPATIC ENCEPHALOPATHY, ISABEL, HYPOTENSION September 01, 2024 9:57pm HEPATIC ENCEPHALOPATHY, ISABEL, HYPOTENSION September 02, 2024 2:55pm SEPSIS WITH STAGHORN CALCULI September 2n d2024 1:46am SEPSIS WITH STAGHORN CALCULI September d2024 7:37am SEPSIS WITH STAGHORN CALCULI September d2024 9:00am SEPSIS WITH STAGHORN CALCULI September 4 h2024 9:36am SEPSIS WITH STAGHORN CALCULI September 5:04pm SEPSIS WITH STAGHORN CALCULI September 2024 12:41pm SEPSIS WITH STAGHORN CALCULI September 4:50pm SEPSIS WITH STAGHORN CALCULI September 10:36am SEPSIS WITH STAGHORN CALCULI September 10:39am SEPSIS WITH STAGHORN CALCULI September 132024 9:27am SEPSIS WITH STAGHORN CALCULI September 142024 9:57am FLUID RETENTION September 29, 2024 9:35am FLUID RETENTION September 29, 2024 10:48am Reason for Visit Admit Date ISABEL (acute kidney injury) August 29, 2024 10:09pm Hepatic encephalopathy August 29 10:09pm Hypotension August 29, 2024 1 0:09pm Ambulatory dysfunction September 05 1:46am Generalized weakness September 05, 2024 1:46am Staghorn calculus September 05, 2024 1 :46am Acute cystitis with hematuria September 052024 1:46am Impaired renal function September 05 1:46am Lactic acidosis September 05, 2024 1 :46am Leukocytosis September 05, 2024 1 :46am Metabolic encephalopathy September 05 1:46am ISABEL (acute kidney injury) September 05, 2024 1:46am Chronic back pain September 05, 2024 1 :46am Chronic hypotension September 05, 2024 1 :46am Hepatic encephalopathy September 05 1:46am Hyperbilirubinemia September 05, 2024 1 :46am Hypotension September 05, 2024 1 :46am 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) September 05, 2024 1:46am Obesity (BMI 30-39.9) September 05, 2024 1:46am ABBY on CPAP September 05, 2024 1 :46am Cirrhosis of liver September 05, 2024 1 :46am Abdominal ascites September 29, 2024 9:35am Chief Complaint Admit Date fall, back pain August 21, 2024 1 :49pm HEPATIC ENCEPHALOPATHY, ISABEL, HYPOTENSION August 29, 2024 10:09pm HEPATIC ENCEPHALOPATHY, ISABEL, HYPOTENSION August 30, 2024 7:58am HEPATIC ENCEPHALOPATHY, ISABEL, HYPOTENSION August 30, 2024 4:52pm HEPATIC ENCEPHALOPATHY, ISABEL, HYPOTENSION August 30, 2024 6:09pm HEPATIC ENCEPHALOPATHY, ISABEL, HYPOTENSION August 31, 2024 7:38am HEPATIC ENCEPHALOPATHY, ISABEL, HYPOTENSION August 31, 2024 3:38pm HEPATIC ENCEPHALOPATHY, ISABEL, HYPOTENSION August 31, 2024 10:21pm HEPATIC ENCEPHALOPATHY, ISABEL, HYPOTENSION September 01, 2024 4:54pm HEPATIC ENCEPHALOPATHY, ISABEL, HYPOTENSION September 01, 2024 9:57pm HEPATIC ENCEPHALOPATHY, ISABEL, HYPOTENSION September 02, 2024 2:55pm SEPSIS WITH STAGHORN CALCULI September 2n d2024 1:46am SEPSIS WITH STAGHORN CALCULI September d2024 7:37am SEPSIS WITH STAGHORN CALCULI September 3r d2024 9:00am SEPSIS WITH STAGHORN CALCULI September 4t h2024 9:36am SEPSIS WITH STAGHORN CALCULI September 5t h2024 5:04pm SEPSIS WITH STAGHORN CALCULI September 6t h2024 12:41pm SEPSIS WITH STAGHORN CALCULI September 7t h2024 4:50pm SEPSIS WITH STAGHORN CALCULI September 8t h2024 10:36am SEPSIS WITH STAGHORN CALCULI September 9t h2024 10:39am SEPSIS WITH STAGHORN CALCULI September 132024 9:27am SEPSIS WITH STAGHORN CALCULI September 142024 9:57am FLUID RETENTION September 29, 2024 9:35am FLUID RETENTION September 29, 2024 10:48am SEPSIS, UTI, DIARRHEA & ABDOMINAL PAIN [facility] 2024 12:43am Reason for Visit Admit Date ISABEL (acute kidney injury) August 29, 2024 10:09pm Hepatic encephalopathy August 29 10:09pm Hypotension August 29, 2024 1 0:09pm Ambulatory dysfunction September 05 1:46am Generalized weakness September 05, 2024 1:46am Staghorn calculus September 05, 2024 1 :46am Acute cystitis with hematuria September 052024 1:46am Impaired renal function September 05 1:46am Lactic acidosis September 05, 2024 1 :46am Leukocytosis September 05, 2024 1 :46am Metabolic encephalopathy September 05 1:46am ISABEL (acute kidney injury) September 05, 2024 1:46am Chronic back pain September 05, 2024 1 :46am Chronic hypotension September 05, 2024 1 :46am Hepatic encephalopathy September 05 1:46am Hyperbilirubinemia September 05, 2024 1 :46am Hypotension September 05, 2024 1 :46am 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) September 05, 2024 1:46am Obesity (BMI 30-39.9) September 05, 2024 1:46am ABBY on CPAP September 05, 2024 1 :46am Cirrhosis of liver September 05, 2024 1 :46am Abdominal ascites September 29, 2024 9:35am Acidosis, lactic October 29, 2024 12: 43am Acute hypotension October 29, 2024 12: 43am Acute UTI October 29, 2024 12: 43am Diarrhea October 29, 2024 12: 43am History of uric acid staghorn calculus M arch 2024 12:43am Leukocytosis October 29, 2024 12: 43am Obesity (BMI 30.0-34.9) October 29, 2024 12:43am Sepsis October 29, 2024 12: 43am Chronic abdominal pain October 29, 2024 12:43am Chronic back pain October 29, 2024 12: 43am Chief Complaint Admit Date fall, back pain August 21, 2024 1 :49pm HEPATIC ENCEPHALOPATHY, ISABEL, HYPOTENSION August 29, 2024 10:09pm HEPATIC ENCEPHALOPATHY, ISABEL, HYPOTENSION August 30, 2024 7:58am HEPATIC ENCEPHALOPATHY, ISABEL, HYPOTENSION August 30, 2024 4:52pm HEPATIC ENCEPHALOPATHY, ISABEL, HYPOTENSION August 30, 2024 6:09pm HEPATIC ENCEPHALOPATHY, ISABEL, HYPOTENSION August 31, 2024 7:38am HEPATIC ENCEPHALOPATHY, ISABEL, HYPOTENSION August 31, 2024 3:38pm HEPATIC ENCEPHALOPATHY, ISABEL, HYPOTENSION August 31, 2024 10:21pm HEPATIC ENCEPHALOPATHY, ISABEL, HYPOTENSION September 01, 2024 4:54pm HEPATIC ENCEPHALOPATHY, ISABEL, HYPOTENSION September 01, 2024 9:57pm HEPATIC ENCEPHALOPATHY, ISABEL, HYPOTENSION September 02, 2024 2:55pm SEPSIS WITH STAGHORN CALCULI September 2n d2024 1:46am SEPSIS WITH STAGHORN CALCULI September d2024 7:37am SEPSIS WITH STAGHORN CALCULI September d2024 9:00am SEPSIS WITH STAGHORN CALCULI September 4t h2024 9:36am SEPSIS WITH STAGHORN CALCULI September 5:04pm SEPSIS WITH STAGHORN CALCULI September 12:41pm SEPSIS WITH STAGHORN CALCULI September 4:50pm SEPSIS WITH STAGHORN CALCULI September 10:36am SEPSIS WITH STAGHORN CALCULI September 10:39am SEPSIS WITH STAGHORN CALCULI September 132024 9:27am SEPSIS WITH STAGHORN CALCULI September 142024 9:57am FLUID RETENTION September 29, 2024 9:35am FLUID RETENTION September 29, 2024 10:48am SEPSIS, UTI, DIARRHEA & ABDOMINAL PAIN M arch 2024 12:43am SEPSIS, UTI, DIARRHEA & ABDOMINAL PAIN M arch 2024 7:44am SEPSIS, UTI, DIARRHEA & ABDOMINAL PAIN M arch 2024 8:20am SEPSIS, UTI, DIARRHEA & ABDOMINAL PAIN M arch 2024 8:48pm SEPSIS, UTI, DIARRHEA & ABDOMINAL PAIN M arch 2024 9:52am SEPSIS, UTI, DIARRHEA & ABDOMINAL PAIN M arch 2024 8:36am SEPSIS, UTI, DIARRHEA & ABDOMINAL PAIN M arch 2024 11:28am SEPSIS, UTI, DIARRHEA & ABDOMINAL PAIN A pril 2024 8:04am SEPSIS, UTI, DIARRHEA & ABDOMINAL PAIN A pril 2024 10:25am SEPSIS, UTI, DIARRHEA & ABDOMINAL PAIN A pril 2024 6:42am SEPSIS, UTI, DIARRHEA & ABDOMINAL PAIN A pril 2024 9:24am SEPSIS, UTI, DIARRHEA & ABDOMINAL PAIN A pril 2024 7:56am SEPSIS, UTI, DIARRHEA & ABDOMINAL PAIN A pril 2024 9:13am SEPSIS, UTI, DIARRHEA & ABDOMINAL PAIN A pril 2024 2:41pm SEPSIS, UTI, DIARRHEA & ABDOMINAL PAIN A pril 2024 6:50pm SEPSIS, UTI, DIARRHEA & ABDOMINAL PAIN A pril 2024 7:37pm Reason for Visit Admit Date ISABEL (acute kidney injury) August 29, 2024 10:09pm Hepatic encephalopathy August 29 10:09pm Hypotension August 29, 2024 1 0:09pm Ambulatory dysfunction September 05 1:46am Generalized weakness September 05, 2024 1:46am Staghorn calculus September 05, 2024 1 :46am Acute cystitis with hematuria September 052024 1:46am Impaired renal function September 05 1:46am Lactic acidosis September 05, 2024 1 :46am Leukocytosis September 05, 2024 1 :46am Metabolic encephalopathy September 05 1:46am ISABEL (acute kidney injury) September 05, 2024 1:46am Chronic back pain September 05, 2024 1 :46am Chronic hypotension September 05, 2024 1 :46am Hepatic encephalopathy September 05 1:46am Hyperbilirubinemia September 05, 2024 1 :46am Hypotension September 05, 2024 1 :46am 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) September 05, 2024 1:46am Obesity (BMI 30-39.9) September 05, 2024 1:46am ABBY on CPAP September 05, 2024 1 :46am Cirrhosis of liver September 05, 2024 1 :46am Abdominal ascites September 29, 2024 9:35am Acidosis, lactic October 29, 2024 12: 43am Acute hypotension October 29, 2024 12: 43am Acute UTI October 29, 2024 12: 43am Clostridium difficile colitis October 12:43am Diarrhea October 29, 2024 12: 43am History of uric acid staghorn calculus M [facility] 2024 12:43am Hyponatremia October 29, 2024 12: 43am Leukocytosis October 29, 2024 12: 43am Obesity (BMI 30.0-34.9) October 29, 2024 12:43am Sepsis October 29, 2024 12: 43am Chronic abdominal pain October 29, 2024 12:43am Chronic back pain October 29, 2024 12: 43am Chief Complaint Admit Date fall, back pain August 21, 2024 1 :49pm HEPATIC ENCEPHALOPATHY, ISABEL, HYPOTENSION August 29, 2024 10:09pm HEPATIC ENCEPHALOPATHY, ISABEL, HYPOTENSION August 30, 2024 7:58am HEPATIC ENCEPHALOPATHY, ISABEL, HYPOTENSION August 30, 2024 4:52pm HEPATIC ENCEPHALOPATHY, ISABEL, HYPOTENSION August 30, 2024 6:09pm HEPATIC ENCEPHALOPATHY, ISABEL, HYPOTENSION August 31, 2024 7:38am HEPATIC ENCEPHALOPATHY, ISABEL, HYPOTENSION August 31, 2024 3:38pm HEPATIC ENCEPHALOPATHY, ISABEL, HYPOTENSION August 31, 2024 10:21pm HEPATIC ENCEPHALOPATHY, ISABEL, HYPOTENSION September 01, 2024 4:54pm HEPATIC ENCEPHALOPATHY, ISABEL, HYPOTENSION September 01, 2024 9:57pm HEPATIC ENCEPHALOPATHY, ISABEL, HYPOTENSION September 02, 2024 2:55pm SEPSIS WITH STAGHORN CALCULI September 2n d2024 1:46am SEPSIS WITH STAGHORN CALCULI September 3r d2024 7:37am SEPSIS WITH STAGHORN CALCULI September 3r d2024 9:00am SEPSIS WITH STAGHORN CALCULI September 4t h2024 9:36am SEPSIS WITH STAGHORN CALCULI September 5t h2024 5:04pm SEPSIS WITH STAGHORN CALCULI September 6t h2024 12:41pm SEPSIS WITH STAGHORN CALCULI September 7t h2024 4:50pm SEPSIS WITH STAGHORN CALCULI September 8t h2024 10:36am SEPSIS WITH STAGHORN CALCULI September 9t h2024 10:39am SEPSIS WITH STAGHORN CALCULI September 132024 9:27am SEPSIS WITH STAGHORN CALCULI September 142024 9:57am FLUID RETENTION September 29, 2024 9:35am FLUID RETENTION September 29, 2024 10:48am SEPSIS, UTI, DIARRHEA & ABDOMINAL PAIN arch 2024 12:43am SEPSIS, UTI, DIARRHEA & ABDOMINAL PAIN arch 2024 7:44am SEPSIS, UTI, DIARRHEA & ABDOMINAL PAIN arch 2024 8:20am SEPSIS, UTI, DIARRHEA & ABDOMINAL PAIN arch 2024 8:48pm SEPSIS, UTI, DIARRHEA & ABDOMINAL PAIN arch 2024 9:52am SEPSIS, UTI, DIARRHEA & ABDOMINAL PAIN M arch 2024 8:36am SEPSIS, UTI, DIARRHEA & ABDOMINAL PAIN arch 2024 11:28am SEPSIS, UTI, DIARRHEA & ABDOMINAL PAIN A pril 2024 8:04am SEPSIS, UTI, DIARRHEA & ABDOMINAL PAIN A pril 2024 10:25am SEPSIS, UTI, DIARRHEA & ABDOMINAL PAIN A pril 2024 6:42am SEPSIS, UTI, DIARRHEA & ABDOMINAL PAIN A pril 2024 9:24am SEPSIS, UTI, DIARRHEA & ABDOMINAL PAIN A pril 2024 7:56am SEPSIS, UTI, DIARRHEA & ABDOMINAL PAIN A pril 2024 9:13am SEPSIS, UTI, DIARRHEA & ABDOMINAL PAIN A pril 2024 2:41pm SEPSIS, UTI, DIARRHEA & ABDOMINAL PAIN A pril 2024 6:50pm SEPSIS, UTI, DIARRHEA & ABDOMINAL PAIN A pril 2024 7:37pm WEAKNESS November 21, 2024 4:2 8am Reason for Visit Admit Date ISABEL (acute kidney injury) August 29, 2024 10:09pm Hepatic encephalopathy August 29 10:09pm Hypotension August 29, 2024 1 0:09pm Ambulatory dysfunction September 05 1:46am Generalized weakness September 05, 2024 1:46am Staghorn calculus September 05, 2024 1 :46am Acute cystitis with hematuria September 052024 1:46am Impaired renal function September 05 1:46am Lactic acidosis September 05, 2024 1 :46am Leukocytosis September 05, 2024 1 :46am Metabolic encephalopathy September 05 1:46am ISABEL (acute kidney injury) September 05, 2024 1:46am Chronic back pain September 05, 2024 1 :46am Chronic hypotension September 05, 2024 1 :46am Hepatic encephalopathy September 05 1:46am Hyperbilirubinemia September 05, 2024 1 :46am Hypotension September 05, 2024 1 :46am 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) September 05, 2024 1:46am Obesity (BMI 30-39.9) September 05, 2024 1:46am ABBY on CPAP September 05, 2024 1 :46am Cirrhosis of liver September 05, 2024 1 :46am Abdominal ascites September 29, 2024 9:35am Clostridium difficile colitis October 12:43am History of uric acid staghorn calculus M arch 2024 12:43am Hyponatremia October 29, 2024 12: 43am Leukocytosis October 29, 2024 12: 43am Obesity (BMI 30.0-34.9) October 29, 2024 12:43am Chronic abdominal pain October 29, 2024 12:43am Chronic back pain October 29, 2024 12: 43am Acidosis, lactic October 29, 2024 12: 43am Acute hypotension October 29, 2024 12: 43am Acute UTI October 29, 2024 12: 43am Diarrhea October 29, 2024 12: 43am Sepsis October 29, 2024 12: 43am ABLA (acute blood loss anemia) November 4:28am Ambulatory dysfunction November 21, 2024 4:28am Generalized weakness November 21, 2024 4: 28am Hematuria November 21, 2024 4:2 8am Hepatic cirrhosis November 21, 2024 4:2 8am Mild dehydration November 21, 2024 4:2 8am Staghorn calculus November 21, 2024 4:2 8am Chief Complaint Admit Date fall, back pain August 21, 2024 1 :49pm HEPATIC ENCEPHALOPATHY, ISABEL, HYPOTENSION August 29, 2024 10:09pm HEPATIC ENCEPHALOPATHY, ISABEL, HYPOTENSION August 30, 2024 7:58am HEPATIC ENCEPHALOPATHY, ISABEL, HYPOTENSION August 30, 2024 4:52pm HEPATIC ENCEPHALOPATHY, ISABEL, HYPOTENSION August 30, 2024 6:09pm HEPATIC ENCEPHALOPATHY, ISABEL, HYPOTENSION August 31, 2024 7:38am HEPATIC ENCEPHALOPATHY, ISABEL, HYPOTENSION August 31, 2024 3:38pm HEPATIC ENCEPHALOPATHY, ISABEL, HYPOTENSION August 31, 2024 10:21pm HEPATIC ENCEPHALOPATHY, ISABEL, HYPOTENSION September 01, 2024 4:54pm HEPATIC ENCEPHALOPATHY, ISABEL, HYPOTENSION September 01, 2024 9:57pm HEPATIC ENCEPHALOPATHY, ISABEL, HYPOTENSION September 02, 2024 2:55pm SEPSIS WITH STAGHORN CALCULI September 1:46am SEPSIS WITH STAGHORN CALCULI September d2024 7:37am SEPSIS WITH STAGHORN CALCULI September d2024 9:00am SEPSIS WITH STAGHORN CALCULI September 42024 9:36am SEPSIS WITH STAGHORN CALCULI September 5:04pm SEPSIS WITH STAGHORN CALCULI September 62024 12:41pm SEPSIS WITH STAGHORN CALCULI September 72024 4:50pm SEPSIS WITH STAGHORN CALCULI September 82024 10:36am SEPSIS WITH STAGHORN CALCULI September 92024 10:39am SEPSIS WITH STAGHORN CALCULI September 132024 9:27am SEPSIS WITH STAGHORN CALCULI September 142024 9:57am FLUID RETENTION September 29, 2024 9:35am FLUID RETENTION September 29, 2024 10:48am SEPSIS, UTI, DIARRHEA & ABDOMINAL PAIN M arch 2024 12:43am SEPSIS, UTI, DIARRHEA & ABDOMINAL PAIN M arch 2024 7:44am SEPSIS, UTI, DIARRHEA & ABDOMINAL PAIN M arch 2024 8:20am SEPSIS, UTI, DIARRHEA & ABDOMINAL PAIN M arch 2024 8:48pm SEPSIS, UTI, DIARRHEA & ABDOMINAL PAIN M arch 2024 9:52am SEPSIS, UTI, DIARRHEA & ABDOMINAL PAIN M arch 2024 8:36am SEPSIS, UTI, DIARRHEA & ABDOMINAL PAIN M arch 2024 11:28am SEPSIS, UTI, DIARRHEA & ABDOMINAL PAIN A pril 2024 8:04am SEPSIS, UTI, DIARRHEA & ABDOMINAL PAIN A pril 2024 10:25am SEPSIS, UTI, DIARRHEA & ABDOMINAL PAIN A pril 2024 6:42am SEPSIS, UTI, DIARRHEA & ABDOMINAL PAIN A pril 2024 9:24am SEPSIS, UTI, DIARRHEA & ABDOMINAL PAIN A pril 2024 7:56am SEPSIS, UTI, DIARRHEA & ABDOMINAL PAIN A pril 2024 9:13am SEPSIS, UTI, DIARRHEA & ABDOMINAL PAIN A pril 2024 2:41pm SEPSIS, UTI, DIARRHEA & ABDOMINAL PAIN A pril 2024 6:50pm SEPSIS, UTI, DIARRHEA & ABDOMINAL PAIN A pril 2024 7:37pm Weakness November 21, 2024 4:2 8am Weakness November 22, 2024 11: 48am Weakness November 23, 2024 3:2 5pm WEAKNESS November 23, 2024 4:1 9pm Weakness November 24, 2024 4:2 9pm Weakness November 25, 2024 12: 07pm UTI AND LEFT ABDOMINAL WALL CELLULITIS A pril 2024 4:51pm UTI AND LEFT ABDOMINAL WALL CELLULITIS A pril 2024 7:28am UTI AND LEFT ABDOMINAL WALL CELLULITIS A pril 2024 7:44am UTI AND LEFT ABDOMINAL WALL CELLULITIS A pril 2024 7:41am UTI AND LEFT ABDOMINAL WALL CELLULITIS M ay 2024 11:10am Reason for Visit Admit Date ISABEL (acute kidney injury) August 29, 2024 10:09pm Hepatic encephalopathy August 29 10:09pm Hypotension August 29, 2024 1 0:09pm Ambulatory dysfunction September 05 1:46am Generalized weakness September 05, 2024 1:46am Staghorn calculus September 05, 2024 1 :46am Acute cystitis with hematuria September 052024 1:46am Impaired renal function September 05 1:46am Lactic acidosis September 05, 2024 1 :46am Leukocytosis September 05, 2024 1 :46am Metabolic encephalopathy September 05 1:46am ISABEL (acute kidney injury) September 05, 2024 1:46am Chronic back pain September 05, 2024 1 :46am Chronic hypotension September 05, 2024 1 :46am Hepatic encephalopathy September 05 1:46am Hyperbilirubinemia September 05, 2024 1 :46am Hypotension September 05, 2024 1 :46am 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) September 05, 2024 1:46am Obesity (BMI 30-39.9) September 05, 2024 1:46am ABBY on CPAP September 05, 2024 1 :46am Cirrhosis of liver September 05, 2024 1 :46am Abdominal ascites September 29, 2024 9:35am Clostridium difficile colitis October 12:43am History of uric acid staghorn calculus M arch 2024 12:43am Hyponatremia October 29, 2024 12: 43am Leukocytosis October 29, 2024 12: 43am Obesity (BMI 30.0-34.9) October 29, 2024 12:43am Chronic abdominal pain October 29, 2024 12:43am Chronic back pain October 29, 2024 12: 43am Acidosis, lactic October 29, 2024 12: 43am Acute hypotension October 29, 2024 12: 43am Acute UTI October 29, 2024 12: 43am Diarrhea October 29, 2024 12: 43am Sepsis October 29, 2024 12: 43am ABLA (acute blood loss anemia) November 4:19pm Ambulatory dysfunction November 23, 2024 4:19pm Generalized weakness November 23, 2024 4: 19pm Hematuria November 23, 2024 4:1 9pm Hepatic cirrhosis November 23, 2024 4:1 9pm Staghorn calculus November 23, 2024 4:1 9pm Mild dehydration November 23, 2024 4:1 9pm Weakness November 23, 2024 4:1 9pm Clostridium difficile colitis November 4:51pm Hepatic cirrhosis November 28, 2024 4:5 1pm Abdominal wall cellulitis November 28 4:51pm UTI (urinary tract infection) November 4:51pm Chief Complaint Admit Date HEPATIC ENCEPHALOPATHY, ISABEL, HYPOTENSION August 29, 2024 10:09pm HEPATIC ENCEPHALOPATHY, ISABEL, HYPOTENSION August 30, 2024 7:58am HEPATIC ENCEPHALOPATHY, ISABEL, HYPOTENSION August 30, 2024 4:52pm HEPATIC ENCEPHALOPATHY, ISABEL, HYPOTENSION August 30, 2024 6:09pm HEPATIC ENCEPHALOPATHY, ISABEL, HYPOTENSION August 31, 2024 7:38am HEPATIC ENCEPHALOPATHY, ISABEL, HYPOTENSION August 31, 2024 3:38pm HEPATIC ENCEPHALOPATHY, ISABEL, HYPOTENSION August 31, 2024 10:21pm HEPATIC ENCEPHALOPATHY, ISABEL, HYPOTENSION September 01, 2024 4:54pm HEPATIC ENCEPHALOPATHY, ISABEL, HYPOTENSION September 01, 2024 9:57pm HEPATIC ENCEPHALOPATHY, ISABEL, HYPOTENSION September 02, 2024 2:55pm SEPSIS WITH STAGHORN CALCULI September 1:46am SEPSIS WITH STAGHORN CALCULI September 7:37am SEPSIS WITH STAGHORN CALCULI September 9:00am SEPSIS WITH STAGHORN CALCULI September 42024 9:36am SEPSIS WITH STAGHORN CALCULI September 5:04pm SEPSIS WITH STAGHORN CALCULI September 62024 12:41pm SEPSIS WITH STAGHORN CALCULI September 72024 4:50pm SEPSIS WITH STAGHORN CALCULI September 82024 10:36am SEPSIS WITH STAGHORN CALCULI September 92024 10:39am SEPSIS WITH STAGHORN CALCULI September 132024 9:27am SEPSIS WITH STAGHORN CALCULI September 142024 9:57am FLUID RETENTION September 29, 2024 9:35am FLUID RETENTION September 29, 2024 10:48am SEPSIS, UTI, DIARRHEA & ABDOMINAL PAIN M arch 2024 12:43am SEPSIS, UTI, DIARRHEA & ABDOMINAL PAIN M arch 2024 7:44am SEPSIS, UTI, DIARRHEA & ABDOMINAL PAIN M arch 2024 8:20am SEPSIS, UTI, DIARRHEA & ABDOMINAL PAIN M arch 2024 8:48pm SEPSIS, UTI, DIARRHEA & ABDOMINAL PAIN M arch 2024 9:52am SEPSIS, UTI, DIARRHEA & ABDOMINAL PAIN M arch 2024 8:36am SEPSIS, UTI, DIARRHEA & ABDOMINAL PAIN M arch 2024 11:28am SEPSIS, UTI, DIARRHEA & ABDOMINAL PAIN A pril 2024 8:04am SEPSIS, UTI, DIARRHEA & ABDOMINAL PAIN A pril 2024 10:25am SEPSIS, UTI, DIARRHEA & ABDOMINAL PAIN A pril 2024 6:42am SEPSIS, UTI, DIARRHEA & ABDOMINAL PAIN A pril 2024 9:24am SEPSIS, UTI, DIARRHEA & ABDOMINAL PAIN A pril 2024 7:56am SEPSIS, UTI, DIARRHEA & ABDOMINAL PAIN A pril 2024 9:13am SEPSIS, UTI, DIARRHEA & ABDOMINAL PAIN A pril 2024 2:41pm SEPSIS, UTI, DIARRHEA & ABDOMINAL PAIN A pril 2024 6:50pm SEPSIS, UTI, DIARRHEA & ABDOMINAL PAIN A pril 2024 7:37pm Weakness November 21, 2024 4:2 8am Weakness November 22, 2024 11: 48am Weakness November 23, 2024 3:2 5pm WEAKNESS November 23, 2024 4:1 9pm Weakness November 24, 2024 4:2 9pm Weakness November 25, 2024 12: 07pm UTI AND LEFT ABDOMINAL WALL CELLULITIS A pril 2024 4:51pm UTI AND LEFT ABDOMINAL WALL CELLULITIS A pril 2024 7:28am UTI AND LEFT ABDOMINAL WALL CELLULITIS A pril 2024 7:44am UTI AND LEFT ABDOMINAL WALL CELLULITIS A pril 2024 7:41am UTI AND LEFT ABDOMINAL WALL CELLULITIS [facility] 2024 11:10am ABD PAIN December 15, 2024 10:07 am Chief Complaint Admit Date HEPATIC ENCEPHALOPATHY, ISABEL, HYPOTENSION August 29, 2024 10:09pm HEPATIC ENCEPHALOPATHY, ISABEL, HYPOTENSION August 30, 2024 7:58am HEPATIC ENCEPHALOPATHY, ISABEL, HYPOTENSION August 30, 2024 4:52pm HEPATIC ENCEPHALOPATHY, ISABEL, HYPOTENSION August 30, 2024 6:09pm HEPATIC ENCEPHALOPATHY, ISABEL, HYPOTENSION August 31, 2024 7:38am HEPATIC ENCEPHALOPATHY, ISABEL, HYPOTENSION August 31, 2024 3:38pm HEPATIC ENCEPHALOPATHY, ISABEL, HYPOTENSION August 31, 2024 10:21pm HEPATIC ENCEPHALOPATHY, ISABEL, HYPOTENSION September 01, 2024 4:54pm HEPATIC ENCEPHALOPATHY, ISABEL, HYPOTENSION September 01, 2024 9:57pm HEPATIC ENCEPHALOPATHY, ISABEL, HYPOTENSION September 02, 2024 2:55pm SEPSIS WITH STAGHORN CALCULI September d2024 1:46am SEPSIS WITH STAGHORN CALCULI September 7:37am SEPSIS WITH STAGHORN CALCULI September 9:00am SEPSIS WITH STAGHORN CALCULI September 42024 9:36am SEPSIS WITH STAGHORN CALCULI September 5:04pm SEPSIS WITH STAGHORN CALCULI September 62024 12:41pm SEPSIS WITH STAGHORN CALCULI September 7t 2024 4:50pm SEPSIS WITH STAGHORN CALCULI September 82024 10:36am SEPSIS WITH STAGHORN CALCULI September 10:39am SEPSIS WITH STAGHORN CALCULI September 132024 9:27am SEPSIS WITH STAGHORN CALCULI September 142024 9:57am FLUID RETENTION September 29, 2024 9:35am FLUID RETENTION September 29, 2024 10:48am SEPSIS, UTI, DIARRHEA & ABDOMINAL PAIN M arch 2024 12:43am SEPSIS, UTI, DIARRHEA & ABDOMINAL PAIN M arch 2024 7:44am SEPSIS, UTI, DIARRHEA & ABDOMINAL PAIN M arch 2024 8:20am SEPSIS, UTI, DIARRHEA & ABDOMINAL PAIN M arch 2024 8:48pm SEPSIS, UTI, DIARRHEA & ABDOMINAL PAIN M arch 2024 9:52am SEPSIS, UTI, DIARRHEA & ABDOMINAL PAIN M arch 2024 8:36am SEPSIS, UTI, DIARRHEA & ABDOMINAL PAIN M arch 2024 11:28am SEPSIS, UTI, DIARRHEA & ABDOMINAL PAIN A pril 2024 8:04am SEPSIS, UTI, DIARRHEA & ABDOMINAL PAIN A pril 2024 10:25am SEPSIS, UTI, DIARRHEA & ABDOMINAL PAIN A pril 2024 6:42am SEPSIS, UTI, DIARRHEA & ABDOMINAL PAIN A pril 2024 9:24am SEPSIS, UTI, DIARRHEA & ABDOMINAL PAIN A pril 2024 7:56am SEPSIS, UTI, DIARRHEA & ABDOMINAL PAIN A pril 2024 9:13am SEPSIS, UTI, DIARRHEA & ABDOMINAL PAIN A pril 2024 2:41pm SEPSIS, UTI, DIARRHEA & ABDOMINAL PAIN A pril 2024 6:50pm SEPSIS, UTI, DIARRHEA & ABDOMINAL PAIN A pril 2024 7:37pm Weakness November 21, 2024 4:2 8am Weakness November 22, 2024 11: 48am Weakness November 23, 2024 3:2 5pm WEAKNESS November 23, 2024 4:1 9pm Weakness November 24, 2024 4:2 9pm Weakness November 25, 2024 12: 07pm UTI AND LEFT ABDOMINAL WALL CELLULITIS A pril 2024 4:51pm UTI AND LEFT ABDOMINAL WALL CELLULITIS A pril 2024 7:28am UTI AND LEFT ABDOMINAL WALL CELLULITIS A pril 2024 7:44am UTI AND LEFT ABDOMINAL WALL CELLULITIS A pril 2024 7:41am UTI AND LEFT ABDOMINAL WALL CELLULITIS M ay 2024 11:10am ABD PAIN December 15, 2024 10:07 am ABD PAIN December 26, 2024 9:58a m Chief Complaint Admit Date HEPATIC ENCEPHALOPATHY, ISABEL, HYPOTENSION August 29, 2024 10:09pm HEPATIC ENCEPHALOPATHY, ISABEL, HYPOTENSION September 01, 2024 4:54pm HEPATIC ENCEPHALOPATHY, ISABEL, HYPOTENSION September 01, 2024 9:57pm HEPATIC ENCEPHALOPATHY, ISABEL, HYPOTENSION September 02, 2024 2:55pm SEPSIS WITH STAGHORN CALCULI September 2n 2024 1:46am SEPSIS WITH STAGHORN CALCULI September 7:37am SEPSIS WITH STAGHORN CALCULI September 9:00am SEPSIS WITH STAGHORN CALCULI September 4t 2024 9:36am SEPSIS WITH STAGHORN CALCULI September 5:04pm SEPSIS WITH STAGHORN CALCULI September 12:41pm SEPSIS WITH STAGHORN CALCULI September 4:50pm SEPSIS WITH STAGHORN CALCULI September 10:36am SEPSIS WITH STAGHORN CALCULI September 10:39am SEPSIS WITH STAGHORN CALCULI September 132024 9:27am SEPSIS WITH STAGHORN CALCULI September 142024 9:57am FLUID RETENTION September 29, 2024 9:35am FLUID RETENTION September 29, 2024 10:48am SEPSIS, UTI, DIARRHEA & ABDOMINAL PAIN M arch 2024 12:43am SEPSIS, UTI, DIARRHEA & ABDOMINAL PAIN M arch 2024 7:44am SEPSIS, UTI, DIARRHEA & ABDOMINAL PAIN M arch 2024 8:20am SEPSIS, UTI, DIARRHEA & ABDOMINAL PAIN M arch 2024 8:48pm SEPSIS, UTI, DIARRHEA & ABDOMINAL PAIN M arch 2024 9:52am SEPSIS, UTI, DIARRHEA & ABDOMINAL PAIN M arch 2024 8:36am SEPSIS, UTI, DIARRHEA & ABDOMINAL PAIN M arch 2024 11:28am SEPSIS, UTI, DIARRHEA & ABDOMINAL PAIN A pril 2024 8:04am SEPSIS, UTI, DIARRHEA & ABDOMINAL PAIN A pril 2024 10:25am SEPSIS, UTI, DIARRHEA & ABDOMINAL PAIN A pril 2024 6:42am SEPSIS, UTI, DIARRHEA & ABDOMINAL PAIN A pril 2024 9:24am SEPSIS, UTI, DIARRHEA & ABDOMINAL PAIN A pril 2024 7:56am SEPSIS, UTI, DIARRHEA & ABDOMINAL PAIN A pril 2024 9:13am SEPSIS, UTI, DIARRHEA & ABDOMINAL PAIN A pril 2024 2:41pm SEPSIS, UTI, DIARRHEA & ABDOMINAL PAIN A pril 2024 6:50pm SEPSIS, UTI, DIARRHEA & ABDOMINAL PAIN A pril 2024 7:37pm Weakness November 21, 2024 4:2 8am Weakness November 22, 2024 11: 48am Weakness November 23, 2024 3:2 5pm WEAKNESS November 23, 2024 4:1 9pm Weakness November 24, 2024 4:2 9pm Weakness November 25, 2024 12: 07pm UTI AND LEFT ABDOMINAL WALL CELLULITIS A pril 2024 4:51pm UTI AND LEFT ABDOMINAL WALL CELLULITIS A pril 2024 7:28am UTI AND LEFT ABDOMINAL WALL CELLULITIS A pril 2024 7:44am UTI AND LEFT ABDOMINAL WALL CELLULITIS A pril 2024 7:41am UTI AND LEFT ABDOMINAL WALL CELLULITIS M ay 2024 11:10am ABD PAIN December 15, 2024 10:07 am ABD PAIN December 26, 2024 9:58a m chest pain, high bs December 30, 2024 1:05a m Chief Complaint Admit Date SEPSIS WITH STAGHORN CALCULI September 1:46am SEPSIS WITH STAGHORN CALCULI September 7:37am SEPSIS WITH STAGHORN CALCULI September 9:00am SEPSIS WITH STAGHORN CALCULI September 42024 9:36am SEPSIS WITH STAGHORN CALCULI September 5:04pm SEPSIS WITH STAGHORN CALCULI September 12:41pm SEPSIS WITH STAGHORN CALCULI September 4:50pm SEPSIS WITH STAGHORN CALCULI September 10:36am SEPSIS WITH STAGHORN CALCULI September 10:39am SEPSIS WITH STAGHORN CALCULI September 132024 9:27am SEPSIS WITH STAGHORN CALCULI September 142024 9:57am FLUID RETENTION September 29, 2024 9:35am FLUID RETENTION September 29, 2024 10:48am SEPSIS, UTI, DIARRHEA & ABDOMINAL PAIN M arch 2024 12:43am SEPSIS, UTI, DIARRHEA & ABDOMINAL PAIN M arch 2024 7:44am SEPSIS, UTI, DIARRHEA & ABDOMINAL PAIN M arch 2024 8:20am SEPSIS, UTI, DIARRHEA & ABDOMINAL PAIN M arch 2024 8:48pm SEPSIS, UTI, DIARRHEA & ABDOMINAL PAIN M arch 2024 9:52am SEPSIS, UTI, DIARRHEA & ABDOMINAL PAIN M arch 2024 8:36am SEPSIS, UTI, DIARRHEA & ABDOMINAL PAIN M arch 2024 11:28am SEPSIS, UTI, DIARRHEA & ABDOMINAL PAIN A pril 2024 8:04am SEPSIS, UTI, DIARRHEA & ABDOMINAL PAIN A pril 2024 10:25am SEPSIS, UTI, DIARRHEA & ABDOMINAL PAIN A pril 2024 6:42am SEPSIS, UTI, DIARRHEA & ABDOMINAL PAIN A pril 2024 9:24am SEPSIS, UTI, DIARRHEA & ABDOMINAL PAIN A pril 2024 7:56am SEPSIS, UTI, DIARRHEA & ABDOMINAL PAIN A pril 2024 9:13am SEPSIS, UTI, DIARRHEA & ABDOMINAL PAIN A pril 2024 2:41pm SEPSIS, UTI, DIARRHEA & ABDOMINAL PAIN A pril 2024 6:50pm SEPSIS, UTI, DIARRHEA & ABDOMINAL PAIN A pril 2024 7:37pm Weakness November 21, 2024 4:2 8am Weakness November 22, 2024 11: 48am Weakness November 23, 2024 3:2 5pm WEAKNESS November 23, 2024 4:1 9pm Weakness November 24, 2024 4:2 9pm Weakness November 25, 2024 12: 07pm UTI AND LEFT ABDOMINAL WALL CELLULITIS A pril 2024 4:51pm UTI AND LEFT ABDOMINAL WALL CELLULITIS A pril 2024 7:28am UTI AND LEFT ABDOMINAL WALL CELLULITIS A pril 2024 7:44am UTI AND LEFT ABDOMINAL WALL CELLULITIS A pril 2024 7:41am UTI AND LEFT ABDOMINAL WALL CELLULITIS M ay 2024 11:10am ABD PAIN December 15, 2024 10:07 am ABD PAIN December 26, 2024 9:58a m chest pain, high bs December 30, 2024 1:05a m WEAKNESS POSSIBLE UTI January 02, 2025 6:0 6am Reason for Visit Admit Date Ambulatory dysfunction September 05 1:46am Generalized weakness September 05, 2024 1:46am Staghorn calculus September 05, 2024 1 :46am Acute cystitis with hematuria September 052024 1:46am Impaired renal function September 05 1:46am Lactic acidosis September 05, 2024 1 :46am Leukocytosis September 05, 2024 1 :46am Metabolic encephalopathy September 05 1:46am ISABEL (acute kidney injury) September 05, 2024 1:46am Chronic back pain September 05, 2024 1 :46am Chronic hypotension September 05, 2024 1 :46am Hepatic encephalopathy September 05 1:46am Hyperbilirubinemia September 05, 2024 1 :46am Hypotension September 05, 2024 1 :46am 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) September 05, 2024 1:46am Obesity (BMI 30-39.9) September 05, 2024 1:46am ABBY on CPAP September 05, 2024 1 :46am Cirrhosis of liver September 05, 2024 1 :46am Abdominal ascites September 29, 2024 9:35am Clostridium difficile colitis October 12:43am History of uric acid staghorn calculus M arch 2024 12:43am Hyponatremia October 29, 2024 12: 43am Leukocytosis October 29, 2024 12: 43am Obesity (BMI 30.0-34.9) October 29, 2024 12:43am Chronic abdominal pain October 29, 2024 12:43am Chronic back pain October 29, 2024 12: 43am Acidosis, lactic October 29, 2024 12: 43am Acute hypotension October 29, 2024 12: 43am Acute UTI October 29, 2024 12: 43am Diarrhea October 29, 2024 12: 43am Sepsis October 29, 2024 12: 43am ABLA (acute blood loss anemia) November 4:19pm Ambulatory dysfunction November 23, 2024 4:19pm Generalized weakness November 23, 2024 4: 19pm Hematuria November 23, 2024 4:1 9pm Hepatic cirrhosis November 23, 2024 4:1 9pm Staghorn calculus November 23, 2024 4:1 9pm Mild dehydration November 23, 2024 4:1 9pm Weakness November 23, 2024 4:1 9pm Clostridium difficile colitis November 4:51pm Hepatic cirrhosis November 28, 2024 4:5 1pm Abdominal wall cellulitis November 28 4:51pm UTI (urinary tract infection) November 4:51pm Acute kidney injury January 02, 2025 6:06a m Fall January 02, 2025 6:06a m Chief Complaint Admit Date SEPSIS WITH STAGHORN CALCULI September 1:46am SEPSIS WITH STAGHORN CALCULI September 42024 9:36am SEPSIS WITH STAGHORN CALCULI September 5:04pm SEPSIS WITH STAGHORN CALCULI September 62024 12:41pm SEPSIS WITH STAGHORN CALCULI September 4:50pm SEPSIS WITH STAGHORN CALCULI September 10:36am SEPSIS WITH STAGHORN CALCULI September 10:39am SEPSIS WITH STAGHORN CALCULI September 132024 9:27am SEPSIS WITH STAGHORN CALCULI September 142024 9:57am FLUID RETENTION September 29, 2024 9:35am FLUID RETENTION September 29, 2024 10:48am SEPSIS, UTI, DIARRHEA & ABDOMINAL PAIN M arch 2024 12:43am SEPSIS, UTI, DIARRHEA & ABDOMINAL PAIN M arch 2024 7:44am SEPSIS, UTI, DIARRHEA & ABDOMINAL PAIN M arch 2024 8:20am SEPSIS, UTI, DIARRHEA & ABDOMINAL PAIN M arch 2024 8:48pm SEPSIS, UTI, DIARRHEA & ABDOMINAL PAIN M arch 2024 9:52am SEPSIS, UTI, DIARRHEA & ABDOMINAL PAIN M arch 2024 8:36am SEPSIS, UTI, DIARRHEA & ABDOMINAL PAIN M arch 2024 11:28am SEPSIS, UTI, DIARRHEA & ABDOMINAL PAIN A pril 2024 8:04am SEPSIS, UTI, DIARRHEA & ABDOMINAL PAIN A pril 2024 10:25am SEPSIS, UTI, DIARRHEA & ABDOMINAL PAIN A pril 2024 6:42am SEPSIS, UTI, DIARRHEA & ABDOMINAL PAIN A pril 2024 9:24am SEPSIS, UTI, DIARRHEA & ABDOMINAL PAIN A pril 2024 7:56am SEPSIS, UTI, DIARRHEA & ABDOMINAL PAIN A pril 2024 9:13am SEPSIS, UTI, DIARRHEA & ABDOMINAL PAIN A pril 2024 2:41pm SEPSIS, UTI, DIARRHEA & ABDOMINAL PAIN A pril 2024 6:50pm SEPSIS, UTI, DIARRHEA & ABDOMINAL PAIN A pril 2024 7:37pm Weakness November 21, 2024 4:2 8am Weakness November 22, 2024 11: 48am Weakness November 23, 2024 3:2 5pm WEAKNESS November 23, 2024 4:1 9pm Weakness November 24, 2024 4:2 9pm Weakness November 25, 2024 12: 07pm UTI AND LEFT ABDOMINAL WALL CELLULITIS A pril 2024 4:51pm UTI AND LEFT ABDOMINAL WALL CELLULITIS A pril 2024 7:28am UTI AND LEFT ABDOMINAL WALL CELLULITIS A pril 2024 7:44am UTI AND LEFT ABDOMINAL WALL CELLULITIS A pril 2024 7:41am UTI AND LEFT ABDOMINAL WALL CELLULITIS M ay 2024 11:10am ABD PAIN December 15, 2024 10:07 am ABD PAIN December 26, 2024 9:58a m chest pain, high bs December 30, 2024 1:05a m WEAKNESS POSSIBLE UTI January 02, 2025 6:0 6am WEAKNESS POSSIBLE UTI January 03, 2025 8:3 9am WEAKNESS POSSIBLE UTI January 04, 2025 10: 14am WEAKNESS POSSIBLE UTI January 05, 2025 7:3 7am Additional Source Comments Reason for Visit (unrecogniz ed section and content) Reason Comments Dental Clearance - Transplant Liver Specialty Diagnoses / Procedures Referred By Ginny t Referred To Contact HOSP INPATIENT Diagnoses 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) Portal vein thrombosis Thrombus Procedures Evaluate and treat HOSP [facility] [id number] [place] [address] Phone: tel: Referral ID Status Reason Start Date Expiration Date Visits Re quested Visits Authorized [id number] 1 Reason Comments Abdominal Pain Patient reports abdo barney pain with back pain that has been increasing. Patient had 4 liters drain from ascites last week. Patient is currently being treated for UTI with Cipro. Patient also c/o black/tarry stools. Denies N/V/D/fever. Reason Comments Transplant Evaluation Consent Reason Comments Liver Eval Reason Comments Patient Education (Transplant) Reason Comments Outcome Liver Transplant Selection Commi ttee Scheduled Active and Recently Administ ered Medications (unrecognized section and content) Medication Order 10/02/2024 10/03/2024 10/04/2024 furosemide (Lasix) tablet 20 mg 20 mg, oral, 2 times daily (morning and late afternoon), First dose on Fri10/04/24 at 1720 1848 (Given - Provid er: Bronwyn Adam RN) iohexol (OMNIPaque) 350 mg iodine/mL solution 69 mL (COMPLETED) 69 mL, intravenous, Once in imaging, Starting on Fri10/04/24 at 1417, For 1 dose 1418 (Given - Provid er: Wil Davis, RT) morphine injection 4 mg (COMPLETED) 4 mg, intravenous, Once, On Fri10/04/24 at 1230, For 1 dose 1235 (Given - Provid er: Bronwyn Adam RN) morphine injection 4 mg (COMPLETED) 4 mg, intravenous, Once, On Fri10/04/24 at 1525, For 1 dose 1543 (Given - Provid er: Day Jones RN) ondansetron (Zofran) injection 4 mg (COMPLETED) 4 mg, intravenous, Once, On Fri10/04/24 at 1230, For 1 dose, When administering via IV Push, administer over 3-5 minutes. 1233 (Given - Provid er: Bronwyn Adam RN) ondansetron (Zofran) injection 4 mg (COMPLETED) 4 mg, intravenous, Once, On Fri10/04/24 at 1525, For 1 dose, When administering via IV Push, administer over 3-5 minutes. 154 (Given - Provid er: Day Jones RN) ondansetron ODT (Zofran-ODT) disintegrating tablet 4 mg (COMPLETED) 4 mg, oral, Once, On Fri10/04/24 at 2115, For 1 dose 211 (Given - Provid er: Marquita Feliz RN) oxyCODONE (Roxicodone) immediate release tablet 5 mg (COMPLETED) 5 mg, oral, Once, On Fri10/04/24 at 1905, For 1 dose, If ordered PRN for pain, nurse is permitted to administer this medication for higher pain scores based on patient preference? Yes 1928 (Given - Provid er: Day Jones RN) spironolactone (Aldactone) split tablet 12.5 mg (COMPLETED) 12.5 mg, oral, Once, On Fri10/04/24 at 1855, For 1 dose 1853 (Given - Provid er: Bronwyn Adam RN) Care Teams (unrecognized sec tion and content) Team Status: Active Member Role Status Dates YG Pena Primary Care Provider Active Team Status: Inactive Member Role Status Dates No Primary Care Physician Primary Care Provider Active Start: August 21, 2024 End: August 21, 2024 Dr. Danny Hutton DO Attending Provider Activ e Start: August 21, 2024 End: August 21, 2024 Dr. Danny Hutton DO Emergency Provider Activ e Start: August 21, 2024 End: August 21, 2024 Team Status: Inactive Member Role Status Dates No Primary Care Physician Primary Care Provider Active Start: August 29, 2024 End: September 02, 2024 Dr. Luis Carlos Anderson DO Emergency Provider Active Start: August 29, 2024 End: September 02, 2024 Dr. Maria Guadalupe Shore MD Admit Provider Active St art: August 29, 2024 End: September 02, 2024 Dr. Maria Guadalupe Shore MD Referring Provider Active Start: August 29, 2024 End: September 02, 2024 Dr. Maria Guadalupe Shore MD Other Provider Active St art: August 29, 2024 End: September 02, 2024 Dr. Rick Carlin , Attending Provider Active Start: August 29, 2024 End: September 02, 2024 Dr. Josefina Khan MD Other Provider Active Start: August 29, 2024 End: September 02, 2024 Team Status: Active Member Role Status Dates No Primary Care Physician Primary Care Provider Active Start: August 30, 2024 Dr. Luis Carlos Anderson DO Emergency Provider Active Start: August 30, 2024 Dr. Maria Guadalupe Shore MD Admit Provider Active St art: August 30, 2024 Dr. Maria Guadalupe Shore MD Referring Provider Active Start: August 30, 2024 Dr. Maria Guadalupe Shore MD Other Provider Active St art: August 30, 2024 Dr. John Paul Masterson MD Other Provider Active Start: August 30, 2024 Dr. Christian Abdi MD Other Provider Active Start: August 30, 2024 Dr. Juarez Baird MD Other Provider Active Star t: August 30, 2024 Dr. Bola Meraz DO Attending Provider Active S tart: August 30, 2024 Dr. Bola Meraz DO Other Provider Active Start : August 30, 2024 Dr. Hill Renee MD Other Provider Active Sta rt: August 30, 2024 Dr. Jeff Cornelius MD Other Provider Active St art: August 30, 2024 Dr. Yury Canas MD Other Provider Active S tart: August 30, 2024 Dr. Dary Lund MD Other Provider Active Start: August 30, 2024 Dr. Bharathi Trujillo MD Other Provider Active Start : August 30, 2024 Dr. Will Lobo MD Other Provider Active Start: August 30, 2024 Dr. Mina Xie MD Other Provider Active Start : August 30, 2024 Dr. Betty Pruett MD Other Provider Active Star t: August 30, 2024 Dr. Gwendolyn Logan MD Other Provider Active Sta rt: August 30, 2024 Dr. Pato Venegas MD Other Provider Active Star t: August 30, 2024 Dr. Elver Mancilla MD Other Provider Active St art: August 30, 2024 Dr. Nadeem uA MD Other Provider Active Star t: August 30, 2024 Dr. Mason Samano DO Other Provider Active St art: August 30, 2024 Dr. Anel Casey MD Other Provider Active Start: August 30, 2024 Dr. Robin Nobles MD Other Provider Active St art: August 30, 2024 Dr. Kenneth Noland DO Other Provider Active Start: August 30, 2024 Dr. Lupillo Robbins MD Other Provider Active Star t: August 30, 2024 Dr. Young Richardson MD Other Provider Active Sta rt: August 30, 2024 Dr. Rick Carlin DO Other Provider Active S tart: August 30, 2024 Dr. Josefina Khan MD Other Provider Active Start: August 30, 2024 Team Status: Active Member Role Status Dates No Primary Care Physician Primary Care Provider Active Start: August 30, 2024 Dr. Luis Carlos Anderson DO Emergency Provider Active Start: August 30, 2024 Dr. Maria Guadalupe Shore MD Admit Provider Active St art: August 30, 2024 Dr. Maria Guadalupe Shore MD Other Provider Active St art: August 30, 2024 Dr. John Paul Masterson MD Other Provider Active Start: August 30, 2024 Dr. Christian Abdi MD Other Provider Active Start: August 30, 2024 Dr. Juarez Baird MD Other Provider Active Star t: August 30, 2024 Dr. Bola Meraz DO Other Provider Active Start : August 30, 2024 Dr. Hill Renee MD Other Provider Active Sta rt: August 30, 2024 Dr. Jeff Cornelius MD Other Provider Active St art: August 30, 2024 Dr. Yury Canas MD Other Provider Active S tart: August 30, 2024 Dr. Dary Lund MD Other Provider Active Start: August 30, 2024 Dr. Bharathi Trujillo MD Other Provider Active Start : August 30, 2024 Dr. Will Lobo MD Other Provider Active Start: August 30, 2024 Dr. Mina Xie MD Other Provider Active Start : August 30, 2024 Dr. Betty Pruett MD Other Provider Active Star t: August 30, 2024 Dr. Gwendolyn Logan MD Other Provider Active Sta rt: August 30, 2024 Dr. Pato Venegas MD Other Provider Active Star t: August 30, 2024 Dr. Elver Mancilla MD Other Provider Active St art: August 30, 2024 Dr. Nadeem Au MD Other Provider Active Star t: August 30, 2024 Dr. Mason Samano DO Other Provider Active St art: August 30, 2024 Dr. Anel Casey MD Other Provider Active Start: August 30, 2024 Dr. Robin Nobles MD Other Provider Active St art: August 30, 2024 Dr. Kenneth Noland DO Other Provider Active Start: August 30, 2024 Dr. Lupillo Robbins MD Other Provider Active Star t: August 30, 2024 Dr. Yonug Richardson MD Other Provider Active Sta rt: August 30, 2024 Dr. Rick Carlin DO Attending Provider Active Start: August 30, 2024 Dr. Rick Carlin DO Other Provider Active S tart: August 30, 2024 Dr. Josefina Khan MD Other Provider Active Start: August 30, 2024 Team Status: Active Member Role Status Dates No Primary Care Physician Primary Care Provider Active Start: August 30, 2024 Dr. Luis Carlos Anderson DO Emergency Provider Active Start: August 30, 2024 Dr. Maria Guadalupe Shore MD Admit Provider Active St art: August 30, 2024 Dr. Maria Guadalupe Shore MD Referring Provider Active Start: August 30, 2024 Dr. Maria Guadalupe Shore MD Other Provider Active St art: August 30, 2024 Dr. John Paul Masterson MD Other Provider Active Start: August 30, 2024 Dr. Christian Abdi MD Other Provider Active Start: August 30, 2024 Dr. Juarez Baird MD Other Provider Active Star t: August 30, 2024 Dr. Bola Meraz DO Other Provider Active Start : August 30, 2024 Dr. Hill Renee MD Other Provider Active Sta rt: August 30, 2024 Dr. Jeff Cornelius MD Other Provider Active St art: August 30, 2024 Dr. Yury Canas MD Other Provider Active S tart: August 30, 2024 Dr. Dary Lund MD Other Provider Active Start: August 30, 2024 Dr. Bharathi Trujillo MD Other Provider Active Start : August 30, 2024 Dr. Will Lobo MD Other Provider Active Start: August 30, 2024 Dr. Mina Xie MD Other Provider Active Start : August 30, 2024 Dr. Betty Pruett MD Other Provider Active Star t: August 30, 2024 Dr. Gwendolyn Logan MD Other Provider Active Sta rt: August 30, 2024 Dr. Pato Venegas MD Other Provider Active Star t: August 30, 2024 Dr. Elver Mancilla MD Other Provider Active St art: August 30, 2024 Dr. Nadeem Au MD Other Provider Active Star t: August 30, 2024 Dr. Mason Samano DO Other Provider Active St art: August 30, 2024 Dr. Anel Casey MD Other Provider Active Start: August 30, 2024 Dr. Robin Nobles MD Other Provider Active St art: August 30, 2024 Dr. Kenneth Noland DO Other Provider Active Start: August 30, 2024 Dr. Lupillo Robbins MD Other Provider Active Star t: August 30, 2024 Dr. Young Richardson MD Other Provider Active Sta rt: August 30, 2024 Dr. Rick Carlin DO Other Provider Active S tart: August 30, 2024 Dr. Josefina Khan MD Other Provider Active Start: August 30, 2024 Dr. Niranjan Li DO Attending Provider Active Start: August 30, 2024 Team Status: Active Member Role Status Dates No Primary Care Physician Primary Care Provider Active Start: August 31, 2024 Dr. Luis Carlos Anderson DO Emergency Provider Active Start: August 31, 2024 Dr. Maria Guadalupe Shore MD Admit Provider Active St art: August 31, 2024 Dr. Maria Guadalupe Shore MD Referring Provider Active Start: August 31, 2024 Dr. Maria Guadalupe Shore MD Other Provider Active St art: August 31, 2024 Dr. John Paul Masterson MD Other Provider Active Start: August 31, 2024 Dr. Christian Abdi MD Other Provider Active Start: August 31, 2024 Dr. Juarez Baird MD Other Provider Active Star t: August 31, 2024 Dr. Bola Meraz DO Attending Provider Active S tart: August 31, 2024 Dr. Bola Meraz DO Other Provider Active Start : August 31, 2024 Dr. Hill Renee MD Other Provider Active Sta rt: August 31, 2024 Dr. Jeff Cornelius MD Other Provider Active St art: August 31, 2024 Dr. Yury Canas MD Other Provider Active S tart: August 31, 2024 Dr. Dary Lund MD Other Provider Active Start: August 31, 2024 Dr. Bharathi Trujillo MD Other Provider Active Start : August 31, 2024 Dr. Will Lobo MD Other Provider Active Start: August 31, 2024 Dr. Mina Xie MD Other Provider Active Start : August 31, 2024 Dr. Betty Pruett MD Other Provider Active Star t: August 31, 2024 Dr. Gwendolyn Logan MD Other Provider Active Sta rt: August 31, 2024 Dr. Pato Venegas MD Other Provider Active Star t: August 31, 2024 Dr. Elver Mancilla MD Other Provider Active St art: August 31, 2024 Dr. Nadeem Au MD Other Provider Active Star t: August 31, 2024 Dr. Mason Samano , Other Provider Active St art: August 31, 2024 Dr. Anel Casey MD Other Provider Active Start: August 31, 2024 Dr. Robin Nobles MD Other Provider Active St art: August 31, 2024 Dr. Kenneth Noland DO Other Provider Active Start: August 31, 2024 Dr. Lupillo Robbins MD Other Provider Active Star t: August 31, 2024 Dr. Young Richardson MD Other Provider Active Sta rt: August 31, 2024 Dr. Rick Carlin DO Other Provider Active S tart: August 31, 2024 Dr. Josefina Khan MD Other Provider Active Start: August 31, 2024 Team Status: Active Member Role Status Dates No Primary Care Physician Primary Care Provider Active Start: August 31, 2024 Dr. Luis Carlos Anderson DO Emergency Provider Active Start: August 31, 2024 Dr. Maria Guadalupe Shore MD Admit Provider Active St art: August 31, 2024 Dr. Maria Guadalupe Shore MD Other Provider Active St art: August 31, 2024 Dr. John Paul Masterson MD Other Provider Active Start: August 31, 2024 Dr. Christian Abdi MD Other Provider Active Start: August 31, 2024 Dr. Juarez Baird MD Other Provider Active Star t: August 31, 2024 Dr. Bola Meraz DO Other Provider Active Start : August 31, 2024 Dr. Hill Renee MD Other Provider Active Sta rt: August 31, 2024 Dr. Jeff Cornelius MD Other Provider Active St art: August 31, 2024 Dr. Yury Canas MD Other Provider Active S tart: August 31, 2024 Dr. Dary Lund MD Other Provider Active Start: August 31, 2024 Dr. Bharathi Trujillo MD Other Provider Active Start : August 31, 2024 Dr. Will Lobo MD Other Provider Active Start: August 31, 2024 Dr. Mina Xie MD Other Provider Active Start : August 31, 2024 Dr. Betty Pruett MD Other Provider Active Star t: August 31, 2024 Dr. Gwendolyn Logan MD Other Provider Active Sta rt: August 31, 2024 Dr. Pato Venegas MD Other Provider Active Star t: August 31, 2024 Dr. Elver Mancilla MD Other Provider Active St art: August 31, 2024 Dr. Nadeem Au MD Other Provider Active Star t: August 31, 2024 Dr. Mason Samano DO Other Provider Active St art: August 31, 2024 Dr. Anel Casey MD Other Provider Active Start: August 31, 2024 Dr. Robin Nobles MD Other Provider Active St art: August 31, 2024 Dr. Kenneth Noland DO Other Provider Active Start: August 31, 2024 Dr. Lupillo Robbins MD Other Provider Active Star t: August 31, 2024 Dr. Young Richardson MD Other Provider Active Sta rt: August 31, 2024 Dr. Rick Carlin DO Attending Provider Active Start: August 31, 2024 Dr. Rick Carlin DO Other Provider Active S tart: August 31, 2024 Dr. Josefina Khan MD Other Provider Active Start: August 31, 2024 Team Status: Active Member Role Status Dates No Primary Care Physician Primary Care Provider Active Start: August 31, 2024 Dr. Luis Carlos Anderson DO Emergency Provider Active Start: August 31, 2024 Dr. Maria Guadalupe Shore MD Admit Provider Active St art: August 31, 2024 Dr. Maria Guadalupe Shore MD Referring Provider Active Start: August 31, 2024 Dr. Maria Guadalupe Shore MD Other Provider Active St art: August 31, 2024 Dr. Rick Carlin DO Other Provider Active S tart: August 31, 2024 Dr. Josefina Khan MD Other Provider Active Start: August 31, 2024 Dr. Niranjan Li , Attending Provider Active Start: August 31, 2024 Team Status: Active Member Role Status Dates No Primary Care Physician Primary Care Provider Active Start: September 01, 2024 Dr. Luis Carlos Anderson DO Emergency Provider Active Start: September 01, 2024 Dr. Maria Guadalupe Shore MD Admit Provider Active St art: September 01, 2024 Dr. Maria Guadalupe Shore MD Other Provider Active St art: September 01, 2024 Dr. Rick Carlin DO Attending Provider Active Start: September 01, 2024 Dr. Rick Carlin DO Other Provider Active S tart: September 01, 2024 Dr. Josefina Khan MD Other Provider Active Start: September 01, 2024 Team Status: Active Member Role Status Dates No Primary Care Physician Primary Care Provider Active Start: September 01, 2024 Dr. Luis Carlos Anderson DO Emergency Provider Active Start: September 01, 2024 Dr. Maria Guadalupe Shore MD Admit Provider Active St art: September 01, 2024 Dr. Maria Guadalupe Shore MD Referring Provider Active Start: September 01, 2024 Dr. Maria Guadalupe Shore MD Other Provider Active St art: September 01, 2024 Dr. Rick Carlin DO Other Provider Active S tart: September 01, 2024 Dr. Josefina Khan MD Other Provider Active Start: September 01, 2024 Dr. Niranjan Li , Attending Provider Active Start: September 01, 2024 Team Status: Active Member Role Status Dates No Primary Care Physician Primary Care Provider Active Start: September 02, 2024 Dr. Luis Carlos Anderson DO Emergency Provider Active Start: September 02, 2024 Dr. Maria Guadalupe Shore MD Admit Provider Active St art: September 02, 2024 Dr. Maria Guadalupe Shore MD Other Provider Active St art: September 02, 2024 Dr. Rick Carlin DO Attending Provider Active Start: September 02, 2024 Dr. Rick Carlin DO Other Provider Active S tart: September 02, 2024 Dr. Josefina Khan MD Other Provider Active Start: September 02, 2024 Team Status: Inactive Member Role Status Dates No Primary Care Physician Primary Care Provider Active Start: September 05, 2024 End: September 15, 2024 Dr. Rachel Joiner , Emergency Provider Active Start: September 05, 2024 End: September 15, 2024 Dr. Hill Caro DO Admit Provider Active Start: September 05, 2024 End: September 15, 2024 Dr. Hill Caro DO Other Provider Active Start: September 05, 2024 End: September 15, 2024 Dr. Anurag Irene MD Other Provider Active Sta rt: September 05, 2024 End: September 15, 2024 Dr. Boone Izquierdo DO Attending Provider Active Start: September 05, 2024 End: September 15, 2024 Dr. Jae Ash DO Other Provider Active Start: September 05, 2024 End: September 15, 2024 Dr. Thai Thurston MD Other Provider Active Start: September 05, 2024 End: September 15, 2024 Dr. Josefina Khan MD Other Provider Active Start: September 05, 2024 End: September 15, 2024 Dr. Foster Rascon MD Other Provider Active Start: September 05, 2024 End: September 15, 2024 Team Status: Active Member Role Status Dates No Primary Care Physician Primary Care Provider Active Start: September 06, 2024 Dr. Rachel Joiner DO Emergency Provider Active Start: September 06, 2024 Dr. Hill Caro DO Admit Provider Active Start: September 06, 2024 Dr. Hill Caro DO Other Provider Active Start: September 06, 2024 Dr. Foster Rascon MD Other Provider Active Start: September 06, 2024 Dr. Anurag Irene MD Referring Provider Active Start: September 06, 2024 Dr. Anurag Irene MD Other Provider Active Sta rt: September 06, 2024 Dr. John Paul Masterson MD Other Provider Active Start: September 06, 2024 Dr. Christian Abdi MD Other Provider Active Start: September 06, 2024 Dr. Juarez Baird MD Other Provider Active Star t: September 06, 2024 Dr. Bola Meraz DO Attending Provider Active S tart: September 06, 2024 Dr. Bola Meraz DO Other Provider Active Start : September 06, 2024 Dr. Hill Renee MD Other Provider Active Sta rt: September 06, 2024 Dr. Jeff Cornelius MD Other Provider Active St art: September 06, 2024 Dr. Yury Canas MD Other Provider Active S tart: September 06, 2024 Dr. Dary Lund MD Other Provider Active Start: September 06, 2024 Dr. Bharathi Trujillo MD Other Provider Active Start : September 06, 2024 Dr. Will Lobo MD Other Provider Active Start: September 06, 2024 Dr. Mina Xie MD Other Provider Active Start : September 06, 2024 Dr. Betty Pruett MD Other Provider Active Star t: September 06, 2024 Dr. Gwendolyn Logan MD Other Provider Active Sta rt: September 06, 2024 Dr. Stella Mosher MD Other Provider Active Sta rt: September 06, 2024 Dr. Pato Venegas MD Other Provider Active Star t: September 06, 2024 Dr. Elver Mancilla MD Other Provider Active St art: September 06, 2024 Dr. Nadeem Au MD Other Provider Active Star t: September 06, 2024 Dr. Mason Samano DO Other Provider Active St art: September 06, 2024 Dr. Anel Casey MD Other Provider Active Start: September 06, 2024 Dr. Robin Nobles MD Other Provider Active St art: September 06, 2024 Dr. Kenneth Noland DO Other Provider Active Start: September 06, 2024 Dr. Lupillo Robbins MD Other Provider Active Star t: September 06, 2024 Dr. Young Richardson MD Other Provider Active Sta rt: September 06, 2024 Dr. Thai Thurston MD Other Provider Active Start: September 06, 2024 Dr. Josefina Khan MD Other Provider Active Start: September 06, 2024 Team Status: Active Member Role Status Dates No Primary Care Physician Primary Care Provider Active Start: September 06, 2024 Dr. Rachel Joiner DO Emergency Provider Active Start: September 06, 2024 Dr. Hill Caro DO Admit Provider Active Start: September 06, 2024 Dr. Hill Caro DO Other Provider Active Start: September 06, 2024 Dr. Foster Rascon MD Other Provider Active Start: September 06, 2024 Dr. Anurag Irene MD Attending Provider Active Start: September 06, 2024 Dr. Anurag Irene MD Other Provider Active Sta rt: September 06, 2024 Dr. John Paul Masterson MD Other Provider Active Start: September 06, 2024 Dr. Christian Abdi MD Other Provider Active Start: September 06, 2024 Dr. Juarez Baird MD Other Provider Active Star t: September 06, 2024 Dr. Bola Meraz DO Other Provider Active Start : September 06, 2024 Dr. Hill Renee MD Other Provider Active Sta rt: September 06, 2024 Dr. Jeff Cornelius MD Other Provider Active St art: September 06, 2024 Dr. Yury Canas MD Other Provider Active S tart: September 06, 2024 Dr. Dary Lund MD Other Provider Active Start: September 06, 2024 Dr. Bharathi Trujillo MD Other Provider Active Start : September 06, 2024 Dr. Will Lobo MD Other Provider Active Start: September 06, 2024 Dr. Mina Xie MD Other Provider Active Start : September 06, 2024 Dr. Betty Pruett MD Other Provider Active Star t: September 06, 2024 Dr. Gwendolyn Logan MD Other Provider Active Sta rt: September 06, 2024 Dr. Stella Mosher MD Other Provider Active Sta rt: September 06, 2024 Dr. Pato Venegas MD Other Provider Active Star t: September 06, 2024 Dr. Elver Mancilla MD Other Provider Active St art: September 06, 2024 Dr. Nadeem Au MD Other Provider Active Star t: September 06, 2024 Dr. Mason Samano DO Other Provider Active St art: September 06, 2024 Dr. Anel Casey MD Other Provider Active Start: September 06, 2024 Dr. Robin Nobles MD Other Provider Active St art: September 06, 2024 Dr. Kenneth Noland DO Other Provider Active Start: September 06, 2024 Dr. Lupillo Robbins MD Other Provider Active Star t: September 06, 2024 Dr. Young Richardson MD Other Provider Active Sta rt: September 06, 2024 Dr. Thai Thurston MD Other Provider Active Start: September 06, 2024 Dr. Josefina Khan MD Other Provider Active Start: September 06, 2024 Team Status: Active Member Role Status Dates No Primary Care Physician Primary Care Provider Active Start: September 07, 2024 Dr. Rachel Joiner DO Emergency Provider Active Start: September 07, 2024 Dr. Hill Caro DO Admit Provider Active Start: September 07, 2024 Dr. Hill Caro DO Other Provider Active Start: September 07, 2024 Dr. Foster Rascon MD Other Provider Active Start: September 07, 2024 Dr. Anurag Irene MD Attending Provider Active Start: September 07, 2024 Dr. Anurag Irene MD Other Provider Active Sta rt: September 07, 2024 Dr. Thai Thurston MD Other Provider Active Start: September 07, 2024 Dr. Josefina Khan MD Other Provider Active Start: September 07, 2024 Team Status: Active Member Role Status Dates No Primary Care Physician Primary Care Provider Active Start: September 08, 2024 Dr. Rachel Joiner DO Emergency Provider Active Start: September 08, 2024 Dr. Hill Caro DO Admit Provider Active Start: September 08, 2024 Dr. Hill Caro DO Other Provider Active Start: September 08, 2024 Dr. Foster Rascon MD Other Provider Active Start: September 08, 2024 Dr. Anurag Irene MD Attending Provider Active Start: September 08, 2024 Dr. Anurag Irene MD Other Provider Active Sta rt: September 08, 2024 Dr. Thai Thurston MD Other Provider Active Start: September 08, 2024 Dr. Josefina Khan MD Other Provider Active Start: September 08, 2024 Team Status: Active Member Role Status Dates No Primary Care Physician Primary Care Provider Active Start: September 09, 2024 Dr. Rachel Joiner DO Emergency Provider Active Start: September 09, 2024 Dr. Hill Caro DO Admit Provider Active Start: September 09, 2024 Dr. Hill Caro DO Other Provider Active Start: September 09, 2024 Dr. Foster Rascon MD Other Provider Active Start: September 09, 2024 Dr. Thai Thurston MD Other Provider Active Start: September 09, 2024 Dr. Josefina Khan MD Other Provider Active Start: September 09, 2024 Dr. Jae Ash DO Attending Provider Active Start: September 09, 2024 Dr. Jae Ash DO Other Provider Active Start: September 09, 2024 Dr. Anurag Irene MD Other Provider Active Sta rt: September 09, 2024 Team Status: Active Member Role Status Dates No Primary Care Physician Primary Care Provider Active Start: September 10, 2024 Dr. Rachel Joiner DO Emergency Provider Active Start: September 10, 2024 Dr. Hill Caro DO Admit Provider Active Start: September 10, 2024 Dr. Hill Caro DO Other Provider Active Start: September 10, 2024 Dr. Foster Rascon MD Other Provider Active Start: September 10, 2024 Dr. Thai Thurston MD Other Provider Active Start: September 10, 2024 Dr. Josefina Khan MD Other Provider Active Start: September 10, 2024 Dr. Jae Ash , Attending Provider Active Start: September 10, 2024 Dr. Jae Ash DO Other Provider Active Start: September 10, 2024 Dr. Anurag Irene MD Other Provider Active Sta rt: September 10, 2024 Team Status: Active Member Role Status Dates No Primary Care Physician Primary Care Provider Active Start: September 11, 2024 Dr. Rachel Joiner DO Emergency Provider Active Start: September 11, 2024 Dr. Hill Caro DO Admit Provider Active Start: September 11, 2024 Dr. Hill Caro DO Other Provider Active Start: September 11, 2024 Dr. Foster Rascon MD Other Provider Active Start: September 11, 2024 Dr. Thai Thurston MD Other Provider Active Start: September 11, 2024 Dr. Josefina Khan MD Other Provider Active Start: September 11, 2024 Dr. Jae Ash DO Attending Provider Active Start: September 11, 2024 Dr. Jae Ash DO Other Provider Active Start: September 11, 2024 Dr. Anurag Irene MD Other Provider Active Sta rt: September 11, 2024 Team Status: Active Member Role Status Dates No Primary Care Physician Primary Care Provider Active Start: September 12, 2024 Dr. Rachel Joiner DO Emergency Provider Active Start: September 12, 2024 Dr. Hill Caro DO Admit Provider Active Start: September 12, 2024 Dr. Hill Caro DO Other Provider Active Start: September 12, 2024 Dr. Foster Rascon MD Other Provider Active Start: September 12, 2024 Dr. Thai hTurston MD Other Provider Active Start: September 12, 2024 Dr. Josefina Khan MD Other Provider Active Start: September 12, 2024 Dr. Jae Ash , DO Attending Provider Active Start: September 12, 2024 Dr. Jae Ash , DO Other Provider Active Start: September 12, 2024 Dr. Anurag Irene MD Other Provider Active Sta rt: September 12, 2024 Team Status: Active Member Role Status Dates No Primary Care Physician Primary Care Provider Active Start: September 13, 2024 Dr. Rachel Joiner , DO Emergency Provider Active Start: September 13, 2024 Dr. Hill Caro , DO Admit Provider Active Start: September 13, 2024 Dr. Hill Caro DO Other Provider Active Start: September 13, 2024 Dr. Foster Rascon MD Other Provider Active Start: September 13, 2024 Dr. Thai Thurston MD Other Provider Active Start: September 13, 2024 Dr. Josefina Khan MD Other Provider Active Start: September 13, 2024 Dr. Anurag Irene MD Other Provider Active Sta rt: September 13, 2024 Dr. Boone Izquierdo DO Attending Provider Active Start: September 13, 2024 Dr. Boone Izquierdo DO Other Provider Active Star t: September 13, 2024 Dr. Jae Ash , DO Other Provider Active Start: September 13, 2024 Team Status: Active Member Role Status Dates No Primary Care Physician Primary Care Provider Active Start: September 14, 2024 Dr. Rachel Joiner , Emergency Provider Active Start: September 14, 2024 Dr. Hill Caro , DO Admit Provider Active Start: September 14, 2024 Dr. Hill Caro , DO Other Provider Active Start: September 14, 2024 Dr. Anurag Irene MD Other Provider Active Sta rt: September 14, 2024 Dr. Boone Izquierdo DO Attending Provider Active Start: September 14, 2024 Dr. Boone Izquierdo DO Other Provider Active Star t: September 14, 2024 Dr. Jae Ash , DO Other Provider Active Start: September 14, 2024 Dr. Thai Thurston MD Other Provider Active Start: September 14, 2024 Dr. Josefina Khan MD Other Provider Active Start: September 14, 2024 Dr. Foster Rascon MD Other Provider Active Start: September 14, 2024 Team Status: Inactive Member Role Status Dates No Primary Care Physician Primary Care Provider Active Start: September 29, 2024 End: September 29, 2024 DIANE, BILLE Attending Provider Active Start: 2024 End: September 29, 2024 DIANE, BILLE Referring Provider Active Start: 2024 End: September 29, 2024 Team Status: Active Member Role Status Dates No Primary Care Physician Primary Care Provider Active Start: September 29, 2024 DIANE, BILLE Referring Provider Active Start: 2024 DIANE, BILLE Other Provider Active Start: 2024 Jasmine Morocho BAG HANGER, BAG HANGER-C Attending Provider Active Start: September 29, 2024 Team Status: Inactive Member Role Status Dates No Primary Care Physician Primary Care Provider Active Start: October 29, 2024 End: November 11, 2024 Dr. Alber Dunn MD Emergency Provider Active S tart: October 29, 2024 End: November 11, 2024 Dr. Hill Caro DO Admit Provider Active Start: October 29, 2024 End: November 11, 2024 Dr. Hill Caro DO Other Provider Active Start: October 29, 2024 End: November 11, 2024 Dr. Foster Rascon MD Other Provider Active Start: October 29, 2024 End: November 11, 2024 Dr. Buster Fuchs MD Other Provider Active Start: October 29, 2024 End: November 11, 2024 Dr. Kathie Lemos MD Attending Provider Active Start: October 29, 2024 End: November 11, 2024 Dr. Hill Acuña MD Other Provider Active Star t: October 29, 2024 End: November 11, 2024 Dr. Hill Herrmann MD Other Provider Active Start: October 29, 2024 End: November 11, 2024 Dr. Blair Cage MD Other Provider Active Start : October 29, 2024 End: November 11, 2024 Dr. Thiago Wray MD Other Provider Active Star t: October 29, 2024 End: November 11, 2024 Dr. Gabbi Hughes MD Other Provider Active Start: October 29, 2024 End: November 11, 2024 Dr. Thai Godfrey MD Other Provider Active Star t: October 29, 2024 End: November 11, 2024 Dr. Juan Daniel Garza MD Other Provider Active Start: [facility] 2024 End: November 11, 2024 Dr. Zachariah Glover MD Other Provider Active Sta rt: October 29, 2024 End: November 11, 2024 Dr. Scott Weston , Other Provider Active Sta rt: October 29, 2024 End: November 11, 2024 Yue Delgadillo BAG HANGER, BAG HANGER-C Other Provider Active St art: October 29, 2024 End: November 11, 2024 Dr. Gwendolyn Logan MD Other Provider Active Sta rt: October 29, 2024 Dr. Stella Mosher MD Other Provider Active Sta rt: October 29, 2024 Dr. Pato Venegas MD Other Provider Active Star t: October 29, 2024 Dr. Elver Mancilla MD Other Provider Active St art: October 29, 2024 Dr. Nadeem Au MD Other Provider Active Star t: October 29, 2024 Dr. Mason Samano DO Other Provider Active St art: October 29, 2024 Dr. Anel Casey MD Other Provider Active Start: October 29, 2024 Dr. Robin Nobles MD Other Provider Active St art: October 29, 2024 Dr. Kenneth Noland DO Other Provider Active Start: October 29, 2024 Dr. Lupillo Robbins MD Other Provider Active Star t: October 29, 2024 Dr. Young Richardson MD Other Provider Active Sta rt: October 29, 2024 Team Status: Active Member Role Status Dates No Primary Care Physician Primary Care Provider Active Start: October 29, 2024 Dr. Alber Dunn MD Emergency Provider Active S tart: October 29, 2024 Dr. Hill Caro DO Admit Provider Active Start: October 29, 2024 Dr. Hill Caro DO Referring Provider Active Start: October 29, 2024 Dr. Hill Caro DO Other Provider Active Start: October 29, 2024 Dr. John Paul Masterson MD Other Provider Active Start: October 29, 2024 Dr. Christian Abdi MD Other Provider Active Start: October 29, 2024 Dr. Juarez Baird MD Other Provider Active Star t: October 29, 2024 Dr. Bola Meraz , Attending Provider Active S tart: October 29, 2024 Dr. Bola Meraz , Other Provider Active Start : October 29, 2024 Dr. Hill Renee MD Other Provider Active Sta rt: October 29, 2024 Dr. Jeff Cornelius MD Other Provider Active St art: October 29, 2024 Dr. Yury Canas MD Other Provider Active S tart: October 29, 2024 Dr. Dary Lund MD Other Provider Active Start: October 29, 2024 Dr. Bharathi Trujillo MD Other Provider Active Start : October 29, 2024 Dr. Will Lobo MD Other Provider Active Start: October 29, 2024 Dr. Mina Xie MD Other Provider Active Start : October 29, 2024 Dr. Betty Pruett MD Other Provider Active Star t: October 29, 2024 Dr. Gwendolyn Logan MD Other Provider Active Sta rt: October 29, 2024 Dr. Stella Mosher MD Other Provider Active Sta rt: October 29, 2024 Dr. Pato Venegas MD Other Provider Active Star t: October 29, 2024 Dr. Elver Mancilla MD Other Provider Active St art: October 29, 2024 Dr. Nadeem Au MD Other Provider Active Star t: October 29, 2024 Dr. Mason Samano DO Other Provider Active St art: October 29, 2024 Dr. Anel Casey MD Other Provider Active Start: October 29, 2024 Dr. Robin Nobles MD Other Provider Active St art: October 29, 2024 Dr. Kenneth Noland DO Other Provider Active Start: October 29, 2024 Dr. Lupillo Robbins MD Other Provider Active Star t: October 29, 2024 Dr. Young Richardson MD Other Provider Active Sta rt: October 29, 2024 Dr. Buster Fuchs MD Other Provider Active Start: October 29, 2024 Dr. Foster Rascon MD Other Provider Active Start: October 29, 2024 Team Status: Active Member Role Status Dates No Primary Care Physician Primary Care Provider Active Start: October 30, 2024 Dr. Alber Dunn MD Emergency Provider Active S tart: October 30, 2024 Dr. Hill Caro DO Admit Provider Active Start: October 30, 2024 Dr. Hill Caro DO Other Provider Active Start: October 30, 2024 Dr. John Paul Masterson MD Other Provider Active Start: October 30, 2024 Dr. Christian Abdi MD Other Provider Active Start: October 30, 2024 Dr. Juarez Baird MD Other Provider Active Star t: October 30, 2024 Dr. Bola Meraz DO Other Provider Active Start : October 30, 2024 Dr. Hill Renee MD Other Provider Active Sta rt: October 30, 2024 Dr. Jeff Cornelius MD Other Provider Active St art: October 30, 2024 Dr. Yury Canas MD Other Provider Active S tart: October 30, 2024 Dr. Dary Lund MD Other Provider Active Start: October 30, 2024 Dr. Bharathi Trujillo MD Other Provider Active Start : October 30, 2024 Dr. Will Lobo MD Other Provider Active Start: October 30, 2024 Dr. Mina Xie MD Other Provider Active Start : October 30, 2024 Dr. Betty Pruett MD Other Provider Active Star t: October 30, 2024 Dr. Gwendolyn Logan MD Other Provider Active Sta rt: October 30, 2024 Dr. Stella Mosher MD Other Provider Active Sta rt: October 30, 2024 Dr. Pato Venegas MD Other Provider Active Star t: October 30, 2024 Dr. Elver Mancilla MD Other Provider Active St art: October 30, 2024 Dr. Nadeem Au MD Other Provider Active Star t: October 30, 2024 Dr. Mason Samano DO Other Provider Active St art: October 30, 2024 Dr. Anel Casey MD Other Provider Active Start: October 30, 2024 Dr. Robin Nobles MD Other Provider Active St art: October 30, 2024 Dr. Kenneth Noland DO Other Provider Active Start: October 30, 2024 Dr. Lupillo Robbins MD Other Provider Active Star t: October 30, 2024 Dr. Young Richardson MD Other Provider Active Sta rt: October 30, 2024 Dr. Buster Fuchs MD Attending Provider Active Start: October 30, 2024 Dr. Buster Fuchs MD Other Provider Active Start: October 30, 2024 Dr. Foster Rascon MD Other Provider Active Start: October 30, 2024 Team Status: Active Member Role Status Dates No Primary Care Physician Primary Care Provider Active Start: October 30, 2024 Dr. Alber Dunn MD Emergency Provider Active S tart: October 30, 2024 Dr. Hill Caro DO Admit Provider Active Start: October 30, 2024 Dr. Hill Caro DO Other Provider Active Start: October 30, 2024 Dr. John Paul Masterson MD Other Provider Active Start: October 30, 2024 Dr. Christian Abdi MD Other Provider Active Start: October 30, 2024 Dr. Juarez Baird MD Other Provider Active Star t: October 30, 2024 Dr. Bola Meraz DO Other Provider Active Start : October 30, 2024 Dr. Hill Renee MD Other Provider Active Sta rt: October 30, 2024 Dr. Jeff Cornelius MD Other Provider Active St art: October 30, 2024 Dr. uYry Canas MD Other Provider Active S tart: October 30, 2024 Dr. Dary Lund MD Other Provider Active Start: October 30, 2024 Dr. Bharathi Trujillo MD Other Provider Active Start : October 30, 2024 Dr. Will Lobo MD Other Provider Active Start: October 30, 2024 Dr. Mina Xie MD Other Provider Active Start : October 30, 2024 Dr. Betty Pruett MD Other Provider Active Star t: October 30, 2024 Dr. Gwendolyn Logan MD Other Provider Active Sta rt: October 30, 2024 Dr. Stella Mosher MD Other Provider Active Sta rt: October 30, 2024 Dr. Pato Venegas MD Other Provider Active Star t: October 30, 2024 Dr. Elver Mancilla MD Other Provider Active St art: October 30, 2024 Dr. Nadeem Au MD Other Provider Active Star t: October 30, 2024 Dr. Mason Samano DO Other Provider Active St art: October 30, 2024 Dr. Anel Casey MD Other Provider Active Start: October 30, 2024 Dr. Robni Nobles MD Other Provider Active St art: October 30, 2024 Dr. Kenneth Noland DO Other Provider Active Start: October 30, 2024 Dr. Lupillo Robbins MD Other Provider Active Star t: October 30, 2024 Dr. Young Richardson MD Other Provider Active Sta rt: October 30, 2024 Dr. Buster Fuchs MD Referring Provider Active Start: October 30, 2024 Dr. Buster Fuchs MD Other Provider Active Start: October 30, 2024 Dr. Foster Rascon MD Other Provider Active Start: October 30, 2024 Dr. Niranjan Li DO Attending Provider Active Start: October 30, 2024 Team Status: Active Member Role Status Dates No Primary Care Physician Primary Care Provider Active Start: October 31, 2024 Dr. Alber Dunn MD Emergency Provider Active S tart: October 31, 2024 Dr. Hill Caro DO Admit Provider Active Start: October 31, 2024 Dr. Hill Caro DO Other Provider Active Start: October 31, 2024 Dr. John Paul Masterson MD Other Provider Active Start: October 31, 2024 Dr. Christian Abdi MD Other Provider Active Start: October 31, 2024 Dr. Juarez Baird MD Other Provider Active Star t: October 31, 2024 Dr. Bola Meraz DO Other Provider Active Start : October 31, 2024 Dr. Hill Renee MD Other Provider Active Sta rt: October 31, 2024 Dr. Jeff Cornelius MD Other Provider Active St art: October 31, 2024 Dr. Yury Canas MD Other Provider Active S tart: October 31, 2024 Dr. Dary Lund MD Other Provider Active Start: October 31, 2024 Dr. Bharathi Trujillo MD Other Provider Active Start : October 31, 2024 Dr. Will Lobo MD Other Provider Active Start: October 31, 2024 Dr. Mina Xie MD Other Provider Active Start : October 31, 2024 Dr. Betty Pruett MD Other Provider Active Star t: October 31, 2024 Dr. Gwendolyn Logan MD Other Provider Active Sta rt: October 31, 2024 Dr. Stella Mosher MD Other Provider Active Sta rt: October 31, 2024 Dr. Pato Venegas MD Other Provider Active Star t: October 31, 2024 Dr. Elver Mancilla MD Other Provider Active St art: October 31, 2024 Dr. Nadeem Au MD Other Provider Active Star t: October 31, 2024 Dr. Mason Samano DO Other Provider Active St art: October 31, 2024 Dr. Anel Casey MD Other Provider Active Start: October 31, 2024 Dr. Robin Nobles MD Other Provider Active St art: October 31, 2024 Dr. Kenneth Noland DO Other Provider Active Start: October 31, 2024 Dr. Lupillo Robbins MD Other Provider Active Star t: October 31, 2024 Dr. Young Richardson MD Other Provider Active Sta rt: October 31, 2024 Dr. Buster Fuchs MD Attending Provider Active Start: October 31, 2024 Dr. Buster Fuchs MD Other Provider Active Start: October 31, 2024 Dr. Foster Rascon MD Other Provider Active Start: October 31, 2024 Team Status: Active Member Role Status Dates No Primary Care Physician Primary Care Provider Active Start: November 01, 2024 Dr. Albre Dunn MD Emergency Provider Active S tart: November 01, 2024 Dr. Hill Caro DO Admit Provider Active Start: November 01, 2024 Dr. Hill Caro DO Other Provider Active Start: November 01, 2024 Dr. Foster Rascon MD Other Provider Active Start: November 01, 2024 Dr. Hill Acuña MD Other Provider Active Star t: November 01, 2024 Dr. Buster Fuchs MD Referring Provider Active Start: November 01, 2024 Dr. Buster Fuchs MD Other Provider Active Start: November 01, 2024 Dr. Niranjan Li DO Attending Provider Active Start: November 01, 2024 Team Status: Active Member Role Status Dates No Primary Care Physician Primary Care Provider Active Start: November 01, 2024 Dr. Alber Dunn MD Emergency Provider Active S tart: November 01, 2024 Dr. Hill Caro DO Admit Provider Active Start: November 01, 2024 Dr. Hill Caro DO Other Provider Active Start: November 01, 2024 Dr. Foster Rascon MD Other Provider Active Start: November 01, 2024 Dr. Hill cAuña MD Attending Provider Active Start: November 01, 2024 Dr. Hill Acuña MD Other Provider Active Star t: November 01, 2024 Dr. Buster Fuchs MD Other Provider Active Start: November 01, 2024 Team Status: Active Member Role Status Dates No Primary Care Physician Primary Care Provider Active Start: November 02, 2024 Dr. Alber Dunn MD Emergency Provider Active S tart: November 02, 2024 Dr. Hill Caro DO Admit Provider Active Start: November 02, 2024 Dr. Hill Caro DO Other Provider Active Start: November 02, 2024 Dr. Foster Rascon MD Other Provider Active Start: November 02, 2024 Dr. Hill Acuña MD Attending Provider Active Start: November 02, 2024 Dr. Hill Acuña MD Other Provider Active Star t: November 02, 2024 Dr. Buster Fuchs MD Other Provider Active Start: November 02, 2024 Team Status: Active Member Role Status Dates No Primary Care Physician Primary Care Provider Active Start: November 03, 2024 Dr. Alber Dunn MD Emergency Provider Active S tart: November 03, 2024 Dr. Hill Caro DO Admit Provider Active Start: November 03, 2024 Dr. Hill Caro DO Other Provider Active Start: November 03, 2024 Dr. Foster Rascon MD Other Provider Active Start: November 03, 2024 Dr. Hill Acuña MD Attending Provider Active Start: November 03, 2024 Dr. Hill Acuña MD Other Provider Active Star t: November 03, 2024 Dr. Buster Fuchs MD Other Provider Active Start: November 03, 2024 Team Status: Active Member Role Status Dates No Primary Care Physician Primary Care Provider Active Start: November 04, 2024 Dr. Alber Dunn MD Emergency Provider Active S tart: November 04, 2024 Dr. Hill Caro DO Admit Provider Active Start: November 04, 2024 Dr. Hill Caro DO Other Provider Active Start: November 04, 2024 Dr. Foster Rascon MD Other Provider Active Start: November 04, 2024 Dr. Hill Acuña MD Attending Provider Active Start: November 04, 2024 Dr. Hill Acuña MD Other Provider Active Star t: November 04, 2024 Dr. Buster Fuchs MD Other Provider Active Start: November 04, 2024 Team Status: Active Member Role Status Dates No Primary Care Physician Primary Care Provider Active Start: November 05, 2024 Dr. Alber Dunn MD Emergency Provider Active S tart: November 05, 2024 Dr. Hill Caro DO Admit Provider Active Start: November 05, 2024 Dr. Hill Caro DO Other Provider Active Start: November 05, 2024 Dr. Foster Rascon MD Other Provider Active Start: November 05, 2024 Dr. Hill Acuña MD Attending Provider Active Start: November 05, 2024 Dr. Hill Acuña MD Other Provider Active Star t: November 05, 2024 Dr. Buster Fuchs MD Other Provider Active Start: November 05, 2024 Team Status: Active Member Role Status Dates No Primary Care Physician Primary Care Provider Active Start: November 06, 2024 Dr. Alber Dunn MD Emergency Provider Active S tart: November 06, 2024 Dr. Hill Caro DO Admit Provider Active Start: November 06, 2024 Dr. Hill Caro DO Other Provider Active Start: November 06, 2024 Dr. Foster Rascon MD Other Provider Active Start: November 06, 2024 Dr. Hill Acuña MD Attending Provider Active Start: November 06, 2024 Dr. Hill Acuña MD Other Provider Active Star t: November 06, 2024 Dr. Buster Fuchs MD Other Provider Active Start: November 06, 2024 Team Status: Active Member Role Status Dates No Primary Care Physician Primary Care Provider Active Start: November 07, 2024 Dr. Alber Dunn MD Emergency Provider Active S tart: November 07, 2024 Dr. Hill Caro DO Admit Provider Active Start: November 07, 2024 Dr. Hill Caro DO Other Provider Active Start: November 07, 2024 Dr. Foster Rascon MD Other Provider Active Start: November 07, 2024 Dr. Hill Acuña MD Attending Provider Active Start: November 07, 2024 Dr. Hill Acuña MD Other Provider Active Star t: November 07, 2024 Dr. Buster Fuchs MD Other Provider Active Start: November 07, 2024 Team Status: Active Member Role Status Dates No Primary Care Physician Primary Care Provider Active Start: November 08, 2024 Dr. Alber Dunn MD Emergency Provider Active S tart: November 08, 2024 Dr. Hill Caro DO Admit Provider Active Start: November 08, 2024 Dr. Hill Caro DO Other Provider Active Start: November 08, 2024 Dr. Foster Rascon MD Other Provider Active Start: November 08, 2024 Dr. Buster Fuchs MD Other Provider Active Start: November 08, 2024 Dr. Kathie Lemos MD Attending Provider Active Start: November 08, 2024 Dr. Kathie Lemos MD Other Provider Active Star t: November 08, 2024 Dr. Hill Acuña MD Other Provider Active Star t: November 08, 2024 Team Status: Active Member Role Status Dates No Primary Care Physician Primary Care Provider Active Start: November 09, 2024 Dr. Alber Dunn MD Emergency Provider Active S tart: November 09, 2024 Dr. Hill Caro DO Admit Provider Active Start: November 09, 2024 Dr. Hill Caro DO Other Provider Active Start: November 09, 2024 Dr. Foster Rascon MD Other Provider Active Start: November 09, 2024 Dr. Buster Fuchs MD Other Provider Active Start: November 09, 2024 Dr. Kathie Lemos MD Attending Provider Active Start: November 09, 2024 Dr. Kathie Lemos MD Other Provider Active Star t: November 09, 2024 Dr. Hill Acuña MD Other Provider Active Star t: November 09, 2024 Team Status: Active Member Role Status Dates No Primary Care Physician Primary Care Provider Active Start: November 10, 2024 Dr. Alber Dunn MD Emergency Provider Active S tart: November 10, 2024 Dr. Hill Caro , Admit Provider Active Start: November 10, 2024 Dr. Hill Caro DO Other Provider Active Start: November 10, 2024 Dr. Foster Rascon MD Other Provider Active Start: November 10, 2024 Dr. Buster Fuchs MD Other Provider Active Start: November 10, 2024 Dr. Kathie Lemos MD Attending Provider Active Start: November 10, 2024 Dr. Kathie Lemos MD Other Provider Active Star t: November 10, 2024 Dr. Hill Acuña MD Other Provider Active Star t: November 10, 2024 Dr. Hill Herrmann MD Other Provider Active Start: November 10, 2024 Dr. Blair Cage MD Other Provider Active Start : November 10, 2024 Dr. Thiago Wray MD Other Provider Active Star t: November 10, 2024 Dr. Gabbi Hughes MD Other Provider Active Start: November 10, 2024 Dr. Thai Godfrey MD Other Provider Active Star t: November 10, 2024 Dr. Juan Daniel Garza MD Other Provider Active Start: A pril 2024 Dr. Zachariah Glover MD Other Provider Active Sta rt: November 10, 2024 Dr. Scott Weston DO Other Provider Active Sta rt: November 10, 2024 Yue Delgadillo BAG HANGER, BAG HANGER-C Other Provider Active St art: November 10, 2024 Team Status: Active Member Role Status Dates No Primary Care Physician Primary Care Provider Active Start: November 21, 2024 Dr. Herberth Carlson MD Emergency Provider Active Start: November 21, 2024 Dr. Jae Ash , DO Admit Provider Active Start: November 21, 2024 Dr. Jae Ash DO Attending Provider Active Start: November 21, 2024 Dr. Jae Mosteller , DO Other Provider Active Start: November 21, 2024 Team Status: Active Member Role Status Dates No Primary Care Physician Primary Care Provider Active Start: November 22, 2024 Dr. Herberth Carlson MD Emergency Provider Active Start: November 22, 2024 Dr. Jae Ash , DO Admit Provider Active Start: November 22, 2024 Dr. Jae Ash , DO Other Provider Active Start: November 22, 2024 Dr. Anurag Irene MD Attending Provider Active Start: November 22, 2024 Dr. Anurag Irene MD Other Provider Active Sta rt: November 22, 2024 Team Status: Active Member Role Status Dates No Primary Care Physician Primary Care Provider Active Start: November 23, 2024 Dr. Herberth Carlson MD Emergency Provider Active Start: November 23, 2024 Dr. Jae Ash , Admit Provider Active Start: November 23, 2024 Dr. Jae Ash DO Other Provider Active Start: November 23, 2024 Dr. Anurag Irene MD Attending Provider Active Start: November 23, 2024 Dr. Anurag Irene MD Other Provider Active Sta rt: November 23, 2024 Team Status: Inactive Member Role Status Dates No Primary Care Physician Primary Care Provider Active Start: November 23, 2024 End: November 25, 2024 Dr. Herberth Carlson MD Emergency Provider Active Start: November 23, 2024 End: November 25, 2024 Dr. Jae Ash , DO Admit Provider Active Start: November 23, 2024 End: November 25, 2024 Dr. Jae Ash , Other Provider Active Start: November 23, 2024 End: November 25, 2024 Dr. Anurag Irene MD Attending Provider Active Start: November 23, 2024 End: November 25, 2024 Team Status: Active Member Role Status Dates No Primary Care Physician Primary Care Provider Active Start: November 24, 2024 Dr. Herberth Carlson MD Emergency Provider Active Start: November 24, 2024 Dr. Jae Ash , DO Admit Provider Active Start: November 24, 2024 Dr. Jae Ash , DO Other Provider Active Start: November 24, 2024 Dr. Anurag Irene MD Attending Provider Active Start: November 24, 2024 Dr. Anurag Irene MD Other Provider Active Sta rt: November 24, 2024 Team Status: Active Member Role Status Dates No Primary Care Physician Primary Care Provider Active Start: November 25, 2024 Dr. Herberth Carlson MD Emergency Provider Active Start: November 25, 2024 Dr. Jae Ash DO Admit Provider Active Start: November 25, 2024 Dr. Jae Ash DO Other Provider Active Start: November 25, 2024 Dr. Anurag Irene MD Attending Provider Active Start: November 25, 2024 Dr. Anurag Irene MD Other Provider Active Sta rt: November 25, 2024 Team Status: Inactive Member Role Status Dates No Primary Care Physician Primary Care Provider Active Start: November 28, 2024 End: December 02, 2024 Dr. Rachel Joiner DO Emergency Provider Active Start: November 28, 2024 End: December 02, 2024 Dr. Kathie Lemos MD Admit Provider Active Star t: November 28, 2024 End: December 02, 2024 Dr. Kathie Lemos MD Other Provider Active Star t: November 28, 2024 End: December 02, 2024 Dr. Hill Acuña MD Attending Provider Active Start: November 28, 2024 End: December 02, 2024 Dr. Thai Thurston MD Other Provider Active Start: November 28, 2024 End: December 02, 2024 Team Status: Active Member Role Status Dates No Primary Care Physician Primary Care Provider Active Start: November 29, 2024 Dr. Rachel Joiner DO Emergency Provider Active Start: November 29, 2024 Dr. Kathie Lemos MD Admit Provider Active Star t: November 29, 2024 Dr. Kathie Lemos MD Other Provider Active Star t: November 29, 2024 Dr. Hill Acuña MD Attending Provider Active Start: November 29, 2024 Dr. Hill Acuña MD Other Provider Active Star t: November 29, 2024 Team Status: Active Member Role Status Dates No Primary Care Physician Primary Care Provider Active Start: November 30, 2024 Dr. Rachel Joiner DO Emergency Provider Active Start: November 30, 2024 Dr. Ktahie Lemos MD Admit Provider Active Star t: November 30, 2024 Dr. Kathie Lemos MD Other Provider Active Star t: November 30, 2024 Dr. Hill Acuña MD Attending Provider Active Start: November 30, 2024 Dr. Hill Acuña MD Other Provider Active Star t: November 30, 2024 Team Status: Active Member Role Status Dates No Primary Care Physician Primary Care Provider Active Start: December 01, 2024 Dr. Rachel Joiner DO Emergency Provider Active Start: December 01, 2024 Dr. Kathie Lemos MD Admit Provider Active Star t: December 01, 2024 Dr. Kathie Lemos MD Other Provider Active Star t: December 01, 2024 Dr. Hill Acuña MD Attending Provider Active Start: December 01, 2024 Dr. Hill Acuña MD Other Provider Active Star t: December 01, 2024 Dr. Thai Thurston MD Other Provider Active Start: December 01, 2024 Team Status: Active Member Role Status Dates No Primary Care Physician Primary Care Provider Active Start: December 02, 2024 Dr. Rachel Joiner DO Emergency Provider Active Start: December 02, 2024 Dr. Kathie Lemos MD Admit Provider Active Star t: December 02, 2024 Dr. Kathie Lemos MD Other Provider Active Star t: December 02, 2024 Dr. Hill Acuña MD Attending Provider Active Start: December 02, 2024 Dr. Hill Acuña MD Other Provider Active Star t: December 02, 2024 Dr. 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 Alber Dunn MD Emergency Provider Active S tart: October 29, 2024 Dr. Hill Caro DO Admit Provider Active Start: October 29, 2024 Dr. Hill Caro DO Attending Provider Active Start: October 29, 2024 Team Status: Active Member Role Status Dates No Primary Care Physician Primary Care Provider Active Start: November 01, 2024 Dr. Alber Dunn MD Emergency Provider Active S tart: November 01, 2024 Dr. Hill Caro DO Admit Provider Active Start: November 01, 2024 Dr. Hill Caro DO Other Provider Active Start: November 01, 2024 Dr. Foster Rascon MD Other Provider Active Start: November 01, 2024 Dr. Hill Acuña MD Other Provider Active Star t: November 01, 2024 Dr. Buster Fuchs MD Other Provider Active Start: November 01, 2024 Dr. Niranjan Li , Attending Provider Active Start: November 01, 2024 Team Status: Active Member Role Status Dates No Primary Care Physician Primary Care Provider Active Start: November 21, 2024 Dr. Herberth Carlson MD Emergency Provider Active Start: November 21, 2024 Dr. Jae Ash , Admit Provider Active Start: November 21, 2024 Dr. Jae Ash , Attending Provider Active Start: November 21, 2024 Team Status: Inactive Member Role Status Dates Josy Elias NP-C Primary Care Provider Active Start: December 15, 2024 End: December 15, 2024 Josy Elias NP-C Attending Provider Active Start: December 15, 2024 End: December 15, 2024 Josy Elias NP-C Referring Provider Active Start: December 15, 2024 End: December 15, 2024 Team Status: Inactive Member Role Status Dates Josy Elias BAG HANGER-C Primary Care Provider Active Start: December 26, 2024 End: December 26, 2024 Dr. Boone Carvajal , Emergency Provider Active Start: December 26, 2024 End: December 26, 2024 Team Status: Inactive Member Role Status Dates Josy Elias BAG HANGER-C Primary Care Provider Active Start: December 30, 2024 End: December 30, 2024 Dr. Mina Blood , Emergency Provider Active Start: December 30, 2024 End: December 30, 2024 Team Status: Inactive Member Role Status Dates Josy Elias BAG HANGER-C Primary Care Provider Active Start: December 26, 2024 End: December 26, 2024 Dr. Boone Carvajal DO Attending Provider Active Start: December 26, 2024 End: December 26, 2024 Dr. Boone Carvajal DO Emergency Provider Active Start: December 26, 2024 End: December 26, 2024 Team Status: Active Member Role Status Dates Josy Elias BAG HANGER-C Primary Care Provider Active Start: January 02, 2025 Dr. Roddy Reeves DO Emergency Provider Active Start: January 02, 2025 Dr. Buster Fuchs MD Admit Provider Active Start: January 02, 2025 Dr. Buster Fuchs MD Attending Provider Active Start: January 02, 2025 Dr. Buster Fuchs MD Other Provider Active Start: January 02, 2025 Team Status: Inactive Member Role Status Dates Josy Elias BAG HANGER-C Primary Care Provider Active Start: January 02, 2025 End: January 05, 2025 Dr. Roddy Reeves DO Emergency Provider Active Start: January 02, 2025 End: January 05, 2025 Dr. Buster Fuchs MD Admit Provider Active Start: January 02, 2025 End: January 05, 2025 Dr. Buster Fuchs MD Other Provider Active Start: January 02, 2025 End: January 05, 2025 Dr. Hill Acuña MD Attending Provider Active Start: January 02, 2025 End: January 05, 2025 Team Status: Active Member Role Status Dates Josy Elias BAG HANGER-C Primary Care Provider Active Start: January 03, 2025 Dr. Roddy Reeves DO Emergency Provider Active Start: January 03, 2025 Dr. Buster Fuchs MD Admit Provider Active Start: January 03, 2025 Dr. Buster Fuchs MD Other Provider Active Start: January 03, 2025 Dr. Hill Acuña MD Attending Provider Active Start: January 03, 2025 Dr. Hill Acuña MD Other Provider Active Star t: January 03, 2025 Team Status: Active Member Role Status Dates Josy Elias BAG HANGER-C Primary Care Provider Active Start: January 04, 2025 Dr. Roddy Reeves DO Emergency Provider Active Start: January 04, 2025 Dr. Buster Fuchs MD Admit Provider Active Start: January 04, 2025 Dr. Buster Fuchs MD Other Provider Active Start: January 04, 2025 Dr. Hill Acuña MD Attending Provider Active Start: January 04, 2025 Dr. Hill Acuña MD Other Provider Active Star t: January 04, 2025 Team Status: Active Member Role Status Dates YG Pena Primary Care Provider Active Start: January 05, 2025 Dr. Roddy Reeves DO Emergency Provider Active Start: January 05, 2025 Dr. Buster Fuchs MD Admit Provider Active Start: January 05, 2025 Dr. Buster Fuchs MD Other Provider Active Start: January 05, 2025 Dr. Hill Acuña MD Attending Provider Active Start: January 05, 2025 Dr. Hill Acuña MD Other Provider Active Star t: January 05, 2025 (unrecognized sect ion and content) No Status Records FoundNo Status Records FoundNo Status Records Found INFORMATION SOURCE (unrecogn ized section and content) DATE CREATED AUTHOR 10/10/2024 [facility] DATE CREATED AUTHOR AUTHOR'S ORGANIZ ATION 12/13/2024 [facility] DATE CREATED AUTHOR AUTHOR'S ORGANIZ ATION 01/07/2025 [facility] Source Comments (unrecognize d section and content) In the event this informatio n is protected by the Federal Confidentiality of Alcohol and Drug Abuse Patient Records regulations: The Federal rules restrict any use of the information to criminally investigate or prosecute any alcohol or drug abuse patient.[facility] the event this information is protected by the Federal Confidentiality of Alcohol and Drug Abuse Patient Records regulations: The Federal rules restrict any use of the information to criminally investigate or prosecute any alcohol or drug abuse patient.[facility] the event this information is protected by the Federal Confidentiality of Alcohol and Drug Abuse Patient Records regulations: The Federal rules restrict any use of the information to criminally investigate or prosecute any alcohol or drug abuse patient.[facility] the event this information is protected by the Federal Confidentiality of Alcohol and Drug Abuse Patient Records regulations: The Federal rules restrict any use of the information to criminally investigate or prosecute any alcohol or drug abuse patient.[facility] the event this information is protected by the Federal Confidentiality of Alcohol and Drug Abuse Patient Records regulations: The Federal rules restrict any use of the information to criminally investigate or prosecute any alcohol or drug abuse patient.[facility] the event this information is protected by the Federal Confidentiality of Alcohol and Drug Abuse Patient Records regulations: The Federal rules restrict any use of the information to criminally investigate or prosecute any alcohol or drug abuse patient.[facility] the event this information is protected by the Federal Confidentiality of Alcohol and Drug Abuse Patient Records regulations: The Federal rules restrict any use of the information to criminally investigate or prosecute any alcohol or drug abuse patient.[facility] the event this information is protected by the Federal Confidentiality of Alcohol and Drug Abuse Patient Records regulations: The Federal rules restrict any use of the information to criminally investigate or prosecute any alcohol or drug abuse patient.[facility] Hospital[facility] the event this information is protected by the Federal Confidentiality of Alcohol and Drug Abuse Patient Records regulations: The Federal rules restrict any use of the information to criminally investigate or prosecute any alcohol or drug abuse patient.[facility] Hospital[facility] the event this information is protected by the Federal Confidentiality of Alcohol and Drug Abuse Patient Records regulations: The Federal rules restrict any use of the information to criminally investigate or prosecute any alcohol or drug abuse patient.[facility] Hospital[facility] the event this information is protected by the Federal Confidentiality of Alcohol and Drug Abuse Patient Records regulations: The Federal rules restrict any use of the information to criminally investigate or prosecute any alcohol or drug abuse patient.[facility] FOR RECORDS PERTAINING TO PATIENTS WHO ARE OR HAVE BEEN ENROLLED IN A CHEMICAL DEPENDENCY/SUBSTANCEABUSE PROGRAM, SOME INFORMATION MAY BE OMITTED. This clinical summary was aggregated from multiple sources. Caution should be exercised in using it in the provision of clinical care. This summary normalizes information from multiple sources, and as a consequence, information in this document may materially change the coding, format and clinical context of patient data. In addition, data may be omitted in some cases. CLINICAL DECISIONS SHOULD BE BASED ON THE PRIMARY CLINICAL RECORDS. [facility]. provides no warranty or guarantee of the accuracy or completeness of information in this document.
[2025-01-09 10:49] LABS: Absolute Lymphocyte Count 0.95 X10^3/uL (0.83-4.51); Absolute Neutrophil Count 10.6 X10^3/uL (2.0-7.7); Basophil# 0.05 X10^3/uL; Basophil% 0.4 % (0-1); Eosinophil# 0.56 X10^3/uL; Eosinophils% 4.2 % (0-5); Hematocrit 24.3 % (40-54); Hemoglobin 7.9 g/dL (13.0-16.5); Lymphocyte # 0.95 X10^3/ul (0.83-4.51); Lymphocyte % 7.2 % (19-41); Mean Corp Hgb Conc 32.5 g/dL (32-36); Mean Corpuscular Hgb 29.4 pg (27.0-32.0); Mean Corpuscular Volume 90.3 fL (80-94); Mean Platelet Vol. 11.7 fl (6.2-12.0); Monocyte# 0.89 X10^3/uL; Monocyte% 6.7 % (0-10); NRBC Flagged by Analyzer 0 % (0-5); Neutrophil # 10.62 X10^3/uL (2.7-7.7); Neutrophil % 80.6 % (47-70); Platelet Count 114 K/mm3 (150-450); RBC Distribution Width CV 18.1 % (11.6-14.6); RBC Distribution Width SD 57.5 fl (35.1-43.9); Red Blood Count 2.69 M/mm3 (4.6-6.2); White Blood Count 13.2 K/mm3 (4.4-11.0)
[2025-01-09] MEDS: 0.9% Normal Saline (1000mL) 1,000 ML 125 ML IV (10:56)
[2025-01-09 11:05] LABS: ALB/GLOB Ratio 0.8 RATIO (0.9-2.4); AST(SGOT) 68 U/L (<=37); Alanine Aminotransfer ALT/SGPT 42 U/L (<=46); Albumin, Serum 2.4 g/dL (3.5-5.0); Alkaline Phosphatase 196 U/L (40-129); Anion Gap 13 (5-15); BUN 24 mg/dL (4-19); BUN/Creat Ratio 13.4 RATIO (10-20); Calcium,Total 8.4 mg/dL (7.6-11.0); Carbon Dioxide 13.6 mmol/L (21.0-32.0); Chloride 103 mmol/L (98-108); Creatinine, Serum 1.77 mg/dL (0.70-1.20); EST Glomerular Filtration Rate 44 (>60); Estimated Creatinine Clearance 50.61 ml/min (50-250); Globulin 2.9 g/dL (2.2-4.2); Glucose 149 mg/dL (70-99); Potassium 3.6 mmol/L (3.3-5.1); Protein, Total 5.3 g/dL (5.9-8.4); Sodium Level 129 mmol/L (133-145); Total Bilirubin 1.15 mg/dL (0.00-1.30)
[2025-01-09 11:09] LABS: Lactic Acid 3.1 mmol/L (0.0-2.0)
[2025-01-09] MEDS: 0.9% Normal Saline (1000mL) 1,000 ML 999 ML IV ×3 (12:50→14:23)
[2025-01-09 13:33] LABS: Bacteria 0 SEEN /hpf (None Seen); Mucous, Urine 0 SEEN /hpf (<or=2+)
[2025-01-09 13:44] LABS: Color, Urine Red (Yellow); Glucose, Dipstick Normal (Normal); Ketone-Dipstick 5 mg/dl (Negative); Leukocyte Esterase-Dipstick 500 /ul (Negative); Nitrite-Dipstick Negative (Negative); Occult Blood-Urine 250 /ul (Negative); Protein-Dipstick 500 mg/dl (Negative); Specific Gravity, Urine 1.015 (1.002-1.030); Urine Clarity Turbid (Clear); Urine Urobilinogen Normal (Normal)
[2025-01-09 13:45] LABS: Urine Bilirubin Dipstick 1 mg/dL (Negative)
[2025-01-09 13:53] LABS: Red Blood Cells-Urine > 100 SEEN /hpf (0-5); White Blood Cells 50-100 SEEN /hpf (0-5)
[2025-01-09 13:54] LABS: Squamous Epithelial Cells - UA 0-5 SEEN /hpf (0-5)
--- NOTE | 2025-01-09 14:08 | HP.PCM.HOS_ITS ---
HPI - General General Date of Admission: 01/09/25 Date of Service: 01/09/25 Chief Complaint: Suprapubic abdominal pain HPI Narrative FRANKLIN ARCHULETA, is a 59 M who presented to the emergency department [facility] on 01/09/2025 due to back pain and suprapubic pain. Patient was recently discharged on 01/05/2025 and at that time was diagnosed with ISABEL, hypokalemia, and recurrent UTI. At that time he was treated with Levaquin. Patient also had finished treatment for recurrent C. difficile colitis. On presentation he stated he felt well at the time of discharge and about 2 days ago on 01/07/2025 he started having back pain which yesterday transitioned into concomitant suprapubic abdominal pain. Patient does have a complicated past medical history and currently resides at an [facility]. He denies any fever or chills. He does complain of some mild nausea but no vomiting. He typically ambulates with a walker at baseline. He rated his Supralip pubic abdominal pain at about 5 out of 10 and in the emergency department declined anything for pain. Vital signs on presentation showed a temperature of 98, heart rate 72, respiratory 16, blood pressure was 93/56 with a repeat of 89/59 and pulse ox was 100% on room air. CBC showed a leukocytosis with a white count of 13.2 and a left shift with an 80.6% neutrophilia which is new from the time of his discharge on 01/05/2025. Chemistry panel shows chronic hyponatremia with a stable sodium. Serum bicarb was down to 13.6. His BUN was elevated at 24 and his serum creatinine was 1.77. Baseline serum creatinine appears to be 0.8-1.1. Serum glucose was 149, lactic acid was 3.1. AST was slightly elevated at 68 but he does appear to have a chronic mild elevation probably related to his liver disease. CK was normal at 34. His urine was turbid appearing and had occult blood, ketones, leuk esterase, white cells but no bacteria were noted at this time. Patient met sepsis criteria and was a sepsis alert at the time of admission. We did agree with sepsis and he was treated accordingly per protocol. Patient met step 3 criteria with elevated lactic acidosis, hypotension, and decreased urine output with ISABEL. Cultures were obtained, antibiotics were started, and he was treated with 30 cc/kg bolus. [facility] Medical History (Updated 01/09/25 @ 17:[address] Yaritza Leo, DO) Chronic hyponatremia Weakness Diarrhea Sepsis Acidosis, lactic Acute hypotension Acute UTI Chronic hypotension Obesity (BMI 30-39.9) Chronic back pain ISABEL (acute kidney injury) Hypotension Hepatic encephalopathy Hyperbilirubinemia Liver cirrhosis secondary to HARRIS (nonalcoholic steatohepatitis) HLD (hyperlipidemia) HTN (hypertension) Thrombocytopenia Chronic anemia Former tobacco use Diabetes mellitus, type 2 ABBY on CPAP Back pain Home Medications ?Medication ?Instructions ?Recorded ?Last Taken ?Type rifaximin 550 mg tablet (Xifaxan) 550 mg PO BID diarrh ea #60 tabs 09/02/24 11/28/24 Rx acetaminophen 500 mg tablet 1,000 mg PO Q8 PRN fever o r pain 10/28/24 Unknown History calcium 500 mg (as 1 tab PO DAILY supplement 11/28/24 History carbonate)-vitamin D3 5 mcg (200 unit) tablet (Oyster Shell Calcium-Vitamin D3) folic acid 1 mg tablet 1 mg PO DAILY supplement 11/28/24 History atorvastatin 40 mg tablet 40 mg PO DAILY cholesterol 0 11/21/24 11/27/24 History furosemide 20 mg tablet 40 mg PO DAILY diuretic /2 11/28/24 History magnesium oxide 400 mg (241.3 mg 400 mg PO DAILY suppl ement 11/21/24 11/28/24 History magnesium) tablet metformin 500 mg tablet,extended 500 mg PO QPM diabete s 11/21/24 11/27/24 History release 24 hr pantoprazole 20 mg tablet,delayed 20 mg PO DAILY reflu x 11/21/24 11/28/24 History release sodium bicarbonate 650 mg tablet 650 mg PO BID supplem ent 11/21/24 11/28/24 History spironolactone 50 mg tablet 100 mg PO DAILY diuretic 0 11/21/24 11/28/24 History thiamine HCl (vitamin B1) 100 mg 100 mg PO DAILY suppl ement 11/21/24 Unknown History tablet zinc sulfate 50 mg zinc (220 mg) 50 mg PO DAILY supple ment 11/21/24 11/28/24 History tablet ascorbic acid (vitamin C) 500 mg 500 mg PO BID vitamin #60 tabs 11/25/24 11/28/24 Rx tablet midodrine 10 mg tablet 10 mg PO TID blood pressure 1 11/25/24 Unknown Rx month #90 tabs lactulose 10 gram/15 mL oral 15 ml PO TID PRN constipa tion 11/28/24 Unknown History solution (Constulose) L.acidophil,salivari-Bifido 1 cap PO TID pobiotic #120 caps 12/02/24 Unknown Rx bifidum-Strep thermoph 175 mg capsule potassium, sodium phosphates 280 1 packet PO BID elect rolytes #100 12/02/24 Unknown Rx mg-160 mg-250 mg oral powder packet ea cyclobenzaprine 10 mg tablet 10 mg PO QHS muscle relax er 01/02/25 Unknown History ferrous sulfate 325 mg (65 mg 325 mg PO QODAY suppleme nt 01/02/25 Unknown History iron) tablet (FeroSul) nadolol 20 mg tablet 20 mg PO DAILY bp 01/02/25 U nknown History insulin glargine-yfgn 100 unit/mL 20 unit (0.2 mL) sub cut DAILY #0 mL 01/05/25 Unknown Rx (3 mL) subcutaneous pen insulin glargine-yfgn 100 unit/mL 20 unit (0.2 mL) sub cut QHS #0 mL 01/05/25 Unknown Rx (3 mL) subcutaneous pen insulin lispro 100 unit/mL 10 unit (0.1 mL) subcut TID AC #0 mL 01/05/25 Unknown Rx subcutaneous pen (Humalog KwikPen (U-100) Insulin) insulin lispro 100 unit/mL See Protocol subcut ACHS #0 mL 01/05/25 Unknown Rx subcutaneous pen (Humalog KwikPen (U-100) Insulin) Allergy/AdvReac Type Severity Reaction Status Date / Time No Known Allergies Allergy Verified 01/02/25 03:00 Family History Mother Heart disease Hypertension CAD (coronary artery disease) Myocardial infarction Father Hypertension Heart disease Heart failure Surgical History History of tonsillectomy and adenoidectomy Social History household members: significant other Smoking Status: Former smoker how long ago did patient quit smoking: Quit ~ 3-4 months prior (fall 2023), smoked 1.5 ppd since teen until quit. alcohol intake: never substance use type: does not use ROS Constitutional Constitutional: Reports fatigue, malaise and weakness; Denies anorexia, change in weight, chills, fever(s), night sweats or other Eyes Eyes: Denies blurry vision, change in eye color, change in vision, discharge from eye(s), double vision, erythema, eye pain, loss of vision or other ENT HEENT: Denies abnormal hearing, dysphagia, ear pain, epistaxis, headache(s), hearing loss, nasal congestion, nasal discharge, post nasal drip, sinus pressure, sore throat or other Cardiovascular Cardiovascular: Denies chest pain, claudication, dyspnea on exertion, edema, lightheadedness, orthopnea, palpitations, paroxysmal nocturnal dyspnea, rapid heart rate, syncope or other Respiratory/Chest Respiratory/Chest: Denies cough, dyspnea, excessive phlegm production, hemoptysis, productive cough, shortness of breath at rest, shortness of breath with exertion, wheezing or other Gastrointestinal Gastrointestinal: Reports abdominal pain, nausea and other Details: Suprapubic pain ; Denies vomiting Genitourinary Genitourinary: Reports other Details: Decreased urine output ; Denies burning urination, difficulty urinating, dysuria, hematuria, nocturia, urinary frequency, urinary hesitancy, urinary incontinence or urinary urgency Musculoskeletal Musculoskeletal: Denies arthralgias, back pain, joint pain, joint stiffness, joint swelling, myalgias, neck pain or other Neurologic Neurologic: Denies abnormal gait, abnormal speech, confusion, disequilibrium, dizziness, focal weakness, headache(s), numbness, paresthesias, seizure-like activity, seizures, syncope, tingling, tremor(s) or other Psychiatric Psychiatric: Reports anxiety and depression; Denies homicidal ideation, suicidal ideation or other Endocrine Endocrinology: Denies change in body appearance, cold intolerance, excessive sweating, heat intolerance, polydipsia, polyuria or other Hematologic/Lymphatic Hematologic/Lymphatic: Denies anemia, easy bleeding, easy bruising, lymphadenopathy or other Allergic/Immunologic Allergic/Immunologic: Denies rhinitis, hives, eczemia, asthma or other Vital Signs Vital Signs Vital Signs: 01/09/25 10:10 01/09/25 10:21 01/09/25 10:30 Temperature 98 F Temperature Source Oral Pulse Rate 72 71 71 Respiratory Rate 16 16 16 Blood Pressure 93/56 L 89/59 L Blood Pressure Mean 68 70 Pulse Ox 100 100 99 Oxygen Delivery Method Room Air 01/09/25 10:45 01/09/25 11:00 01/09/25 11:15 Temperature Temperature Source Pulse Rate 69 67 70 Respiratory Rate 20 H 16 20 H Blood Pressure Blood Pressure Mean Pulse Ox 100 100 99 Oxygen Delivery Method 01/09/25 11:30 01/09/25 11:45 01/09/25 12:00 Temperature Temperature Source Pulse Rate 71 73 67 Respiratory Rate 22 H 20 H 14 Blood Pressure Blood Pressure Mean Pulse Ox 100 100 100 Oxygen Delivery Method 01/09/25 12:15 01/09/25 12:30 01/09/25 12:41 Temperature Temperature Source Pulse Rate Respiratory Rate Blood Pressure 89/54 L Blood Pressure Mean 66 Pulse Ox 100 100 100 Oxygen Delivery Method 01/09/25 12:43 01/09/25 12:45 01/09/25 13:03 Temperature Temperature Source Pulse Rate 68 69 66 Respiratory Rate 19 H 16 16 Blood Pressure 92/52 L 86/54 L 88/53 L Blood Pressure Mean 64 64 66 Pulse Ox 100 100 100 Oxygen Delivery Method 01/09/25 13:04 01/09/25 13:15 01/09/25 13:30 Temperature 98 F Temperature Source Oral Pulse Rate 66 64 63 Respiratory Rate 19 H 16 17 Blood Pressure 88/53 L 87/54 L 85/65 L Blood Pressure Mean 64 64 71 Pulse Ox 100 100 Oxygen Delivery Method Room Air 01/09/25 13:45 01/09/25 14:00 01/09/25 14:01 Temperature Temperature Source Pulse Rate 63 69 Respiratory Rate 15 16 Blood Pressure 95/56 L 107/59 L Blood Pressure Mean 69 73 Pulse Ox 100 100 Oxygen Delivery Method Weight Weight: 90.6 kg Body Mass Index (BMI) 29.5 Physical Exam Const alert, oriented x3 and no apparent distress; Negative for average body habitus, healthy appearing or well nourished Constitutional Narrative: Overweight, somewhat disheveled appearing, middle-aged, white male, appears older than stated age, lying in left side-lying in position, does not appear uncomfortable at this time but does complain of some lower abdominal pain but declines pain medication, appears ill but not toxic General Appearance: cooperative HEENT normocephalic, head/scalp atraumatic and hearing grossly normal bilaterally HEENT Narrative: Mucous membranes appear somewhat dry, dentition is poor, Mallampati is 2, no thrush Eyes Negative for conjunctivae normal Eyes Narrative: Conjunctival pallor present bilaterally, no scleral icterus Neck supple Neck Narrative: Trachea midline, no thyroid enlargement Resp normal respiratory effort, no retractions, no use of accessory muscles and clear to auscultation bilaterally Resp Narrative: Diffusely diminished but clear Auscultation: Negative for rales, rhonchi or wheezes Cardio regular rate, regular rhythm, S1 normal heart sound, S2 normal heart sound, no murmurs and no gallops GI normal to inspection, nondistended, normoactive bowel sounds and soft to palpation; Negative for non-tender GI Narrative: Suprapubic tenderness, umbilical hernia noted Palpation: hernia Extremity no clubbing, cyanosis or edema Extremity Narrative: Pedal and radial pulses are 2+ Skin no jaundice, no petechiae and no mottling Neuro oriented x3 and moves all extremities Speech: speech normal Psych Negative for affect normal Psych Narrative: Affect is flattened mood seems depressed Results Lab / Micro Data 01/09/25 10:40 01/09/25 10:40 Labs: Laboratory Results - last 24 hr 01/09/25 10:40: WBC 13.2 H, RBC 2.69 L, Hgb 7.9 L, Hct 24.3 L, MCV 90.3, MCH 29.4, MCHC 32.5, RDW Std Deviation 57.5 H, RDW Coeff of Francis 18.1 H, Plt Count 114 L, MPV 11.7, Immature Gran % (Auto) 0.900, Neut % (Auto) 80.6 H, Lymph % (Auto) 7.2 L, [place] % (Auto) 6.7, Eos % (Auto) 4.2, Baso % (Auto) 0.4, Absolute Neuts (auto) 10.6 H, Absolute Lymphs (auto) 0.95, Nucleated RBC % 0, Sodium 129 L, Potassium 3.6, Chloride 103, Carbon Dioxide 13.6 L, Anion Gap 13, BUN 24 H, C reatinine 1.77 H, Estim Creat Clear Calc 50.61, Est GFR (MDRD) Non-Af 44 L, BUN/Creatinine Ratio 13.4, Glucose 149 H, Lactic Acid 3.1 H*, Calcium 8.4, Total Bilirubin 1.15, AST 68 H, ALT 42, Alkaline Phosphatase 196 H, Total Protein 5.3 L, Albumin 2.4 L, Globulin 2.9, Albumin/Globulin Ratio 0.8 L 01/09/25 13:28: Urine Color Red, Urine Clarity Turbid, Urine pH 6.0, Ur Specific [place] 1.015, Urine Protein 500 H, Urine Glucose (UA) Normal, Urine Ketones 5 H , Urine Occult Blood 250 H, Urine Nitrite Negative, Urine Bilirubin 1 H, Urine Urobilinogen Normal, Ur Leukocyte Esterase 500 H, Urine RBC > 100 SEEN, Urine WBC 50-100 SEEN, Ur Squamous Epith Cells 0-5 SEEN, Urine Bacteria 0 SEEN, Urine Mucus 0 SEEN Imaging Radiology Impression Abdomen/Pelvis CT 01/09/25 10:31 IMPRESSION: Fractures of 10, specially T 11 and T 12 with questionable lytic process. Differential diagnostic considerations include neoplasm as well as other benign etiologies. Double-J stent in the left collecting system extending to the left bladder base. Kidney staghorn calculus. Cholelithiasis without evidence of cholecystitis. Ventral hernia containing fat and ascites. Cholelithiasis without cholecystitis Cirrhosis and small amount of ascites. Stigmata of portal venous hypertension. No liver masses identified. [facility] Assessment & Plan Assessment/Plan (1) Sepsis: (2) ISABEL (acute kidney injury): (3) Abnormal urinalysis: (4) Lactic acidosis: (5) Metabolic acidosis: (6) Leukocytosis: PLAN: Plan Sepsis secondary to suspected urinary tract infection - Urinalysis is abnormal - Patient hypotensive with an elevated lactic acid and elevated serum creatinine on presentation - Hold home antihypertensives and diuretics - Fluid bolus given at 30 cc/kg of body weight and check for response - Will cover broadly since recent hospitalization with vancomycin and meropenem - Cultures are pending - Consult critical care medicine - Patient does have known history of left-sided staghorn calculi and stenting - Follows with Dr. Rascon - May need urological referral depending on cultures Leukocytosis - Suspect to the above - Was not present at the time of discharge - Trend Lactic acidosis - Secondary to sepsis and poor perfusion - Repeat per sepsis protocol - Thus far patient has had fluid responsive hypotension and I do anticipate resolution ISABEL secondary to ATN with sepsis - Baseline serum creatinine is between 0.8 and 1.1 - Current serum creatinine is 1.77 with decreased urine output - Should resolve with improved perfusion - Repeat lab in a.m. - Avoid nephrotoxins - Hold diuretics Acute on chronic metabolic acidosis - Continue home sodium and bicarbonate - Repeat BMP at 1730 to reassess serum bicarb for stability - Trend Abdominal pain - Suspect related to UTI - Should improve if UTI related - CT does show umbilical hernia and bilateral inguinal hernias however these do not appear to be problematic per ED discussion with general surgery Compression fractures T8 10, 11, and 12 - Concern of lytic process - Will check vitamin D level - Will need outpatient follow-up if pain can be well-controlled for further workup Chronic anemia - Hemoglobin is stable - Will trend - No signs of GI bleeding HARRIS liver cirrhosis with history of varices and hepatic encephalopathy - Continue home rifaximin - Continue home lactulose - Hold home Aldactone and nadolol while being treated for hypotension History of extensive venous thrombosis - Currently not on anticoagulation due to acute blood loss anemia with hematuria - No plans to reinitiate at this point Acute on chronic hypotension - Continue home midodrine - Hold nadolol and diuretics - Once blood pressure stabilizes may restart GERD - Continue on PPI DM-2 - Hold home oral agents - Continue home basal insulin and SSI - Hold home scheduled lispro for now until p.o. intake is improved - Accu-Cheks as ordered - Recent hemoglobin A1c was 7.2 however this is probably underestimated due to his anemia at baseline Hyperlipidemia - Continue home atorvastatin DVT prophylaxis - Heparin 3 times daily CODE STATUS - Full code Sepsis Attestation Sepsis Alert: Yes Date exam was performed: 01/09/25 Time exam was performed: 14:30 Possible Source of Sepsis: Genitourinary Sepsis Organ Dysfunction Criteria Present: SBP < 90 mmHg or MAP < 65 mmHg, UOP < 0.5 mL/kg/hour for 2 consecutive hours and Lactic Acid > 2 mmol/L Fluid Resuscitation Fluid resuscitation indicated?: Yes Fluid Resuscitation ordered: 30 ml/kg fluid bolus ordered Amount of fluid ordered: 2,500 Sepsis Note Date exam was performed: 01/09/25 Time exam was performed: 16:38 Sepsis Attestation: Sepsis re-evaluation was performed Response to fluids: Fluid responsive hypotension (Blood pressures currently 102/60) Charges/Coding Visit Charges Inpatient E&M: 05289 Init Hosp L3
[2025-01-09] MEDS: Vancomycin HCl 2,000 MG in 0.9% Normal Saline (500mL Bag) 500 ML 250 MG IV (14:22)
[2025-01-09 14:43] LABS: Reflex Lactate? Y
--- OUTSIDE RECORDS SUMMARY | 2025-01-09 14:51 | XMS RPT_ITS | CCD ---
Author Organization [facility] Care Team Providers Care Facilities Custodian Name Role Phone Sergey HERNANDEZ, Maurice Soria Primary Care Provider [phone] Care Physician, No Primary Primary Care Provider Unavailable Anni NOYOLA, Dr. Delgado Attending Provider Dr. Danny Hutton DO Emergency Provider Dr. Luis Carlos Anderson DO Emergency Provider Mone HERNANDEZ, Dr. Maria Guadalupe Carlson Admit Provider [phone] Mone HERNANDEZ, Dr. Maria Guadalupe Carlson Referring Provider Mone EHRNANDEZ, Dr. Maria Guadalupe Carlson Other Provider [phone] Rick Carlin DO Attending Provider Erin HERNANDEZ, Dr. Rocha Other Provider Zelalem HERNANDEZ, Dr. Coker Other Provider Dr. Christian Abdi MD Other Provider Dr. Juarez Baird MD Other Provider Dr. Bola Meraz DO Attending Provider [phone] Dr. Bola Meraz DO Other Provider Víctor [...] Provider Carmela HERNANDEZ, Dr. Tam Other Provider [phone] Mallorie HERNANDEZ, Dr. Kelly Other Provider [...] Referring Provider BILLDIANE Parada Other Provider Bailee WATCHMAKING TEACHER-C, Jasmine Attending Provider Shaun HERNANDEZ, Dr. Campo Emergency Provider Caro DO, Dr. Alejandre Attending Provider Unav ailable Care Physician, No Primary Primary Care Provider Unavailable [facility], Dr. Delgado Attending Provider JustoMiners' Colfax Medical Centerblanca NO[facility], Dr. Delgado Emergency Provider [...] Provider Kt NOYOLA, Dr. Plaza Attending Provider [phone] Dr. Bola Meraz DO Other Provider Víctor HERNANDEZ, Dr. Hill Alcaraz Other Provider Ashli HERNANDEZ, Dr. Aguilar Other Provider [phone] Missael HERNANDEZ, Dr. Cotton Other Provider [phone] Ashely HERNANDEZ, Dr. Foote Other Provider Cassandra [...] Provider Dylan HERNANDEZ, Dr. Colon Other Provider [phone] Dr. Rick Carlin DO Other Provider Dr. [...] Provider Nomi HERNANDEZ, Dr. Douglas Other Provider Dr. Anurag Irene MD Attending Provider Dr. Jae Ash DO Attending Provider Dr. Boone Izquierdo DO Other Provider BILLTREY ParadaA Attending Provider BILLKarmaDIANE Referring Provider BILLTREY ParadaA Other Provider Bailee WATCHMAKING TEACHER-C, Jasmine Attending Provider Shaun HERNANDEZ, Dr. Campo Emergency Provider Shila HERNANDEZ, Dr. Buster Barr Other Provider Gio HERNANDEZ, Dr. Vázquez Attending Provider Dr. Hill Acuña MD Other Provider Unavailable Dr. Hill Herrmann MD Other Provider Niles HERNANDEZ, Dr. Pinto Other Provider Nils HERNANDEZ, Dr. Das Other Provider Unavailable Saul HERNANDEZ, Dr. Seo Other Provider Field HERNANDZE, Dr. Andre Other Provider Greg HERNANDEZ, Dr. Frances Other Provider Unavailable Belen HERNANDEZ, Dr. Soni Other Provider Dr. Scott Weston DO Other Provider Elie WATCHMAKING TEACHER-C, Yue Other Provider Dr. Hill Caro DO Referring Provider Unav ailable Shila HERNANDEZ, Dr. Buster Barr Attending Provider Shila HERNANDEZ, Dr. Buster Barr Referring Provider Dr. Hill Acuña MD Attending Provider Unavailestuardo Lemos MD, Dr. Vázquez Other Provider Unavailable Primary Care Provider Unavailyanick Carlson MD, Dr. Kevin Emergency Provider Dr. Jae Ash DO Admit Provider Goi HERNANDEZ, Dr. Vázquez Admit Provider Tannhof WATCHMAKING TEACHER-C, Josy Primary Care Provider Curt WATCHMAKING TEACHER-C, Josy Attending Provider KATHIE LEMOS Referring Unavailable [...] Provider Kt NOYOLA, Dr. Plaza Attending Provider [phone] Kt NOYOLA, Dr. Plaza Other Provider Víctor HERNANDEZ, Dr. Hill Alcaraz Other Provider Ashli HERNANDEZ, Dr. Aguilar Other Provider Missael HERNANDEZ, Dr. Cotton Other Provider Ashely HERNANDEZ, Dr. Foote Other Provider Cassandra HERNANDEZ, Dr. Garvin Other Provider Dr. Will Lobo MD Other Provider [phone] Dr. Mina Xie MD Other Provider [phone] Dr. Betty Prutet MD Other Provider Dr. Gwendolyn Logan MD Other Provider Unavailabl karma Venegas MD, Dr. Whyte Other Provider Laurent HERNANDEZ, Dr. Raya Other Provider [phone] Dr. Nadeem Au MD Other Provider Dr. Mason Samano DO Other Provider Dr. Anel Casey MD Other Provider Dr. Robin Nobles MD Other Provider [phone] Dr. Kenneth Noland DO Other Provider Rosendo HERNANDEZ, Dr. Wesley Other Provider [phone] Dylan HERNANDEZ, Dr. Colon Other Provider [phone] Jeremi NOYOLA, Dr. Enriquez Emergency Provider [phone] Care Physician, No Primary Primary Care Provider Unavailable Erin HERNANDEZ, Dr. Rocha Other Provider Jen DO, Dr. Ureña Attending Provider Wei DO, Dr. Shook Attending Provider Lala DO, Dr. Pereyra Emergency Provider [phone] Shila HERNANDEZ, Dr. Buster Barr Admit Provider [phone] Rick Carlin Attending Unavailable Care Physician, No [...] Care Unava ilable Hill Caro Referring Unavailable iHll Caro Admitting Unavailable Bola Meraz Attending Unavailable [...] Consulting Unavailable Buster Fuchs Attending Unavailable Buster Fuchs Referring Unavailable Ra Jenhsaan Attending Unavailable Anurag [...] Consulting Unavailable Hill Caro Attending Unavailable Anurag Irene Attending Unavailable John Paul Masterson Consulting Unavailable [...] Dhesi, Mason Consulting Unavailable CaseyAnel Consulting Unavailable [place], [place] Consulting Unavailable Fernstrom, Kenneth Consulting Unavailable [...] Mason Consulting Unavailable Casey, Sujoy Consulting Unavailable [place], [place] Consulting Unavailable Fernstrom, Kenneth Consulting Unavailable [...] Unavailable Teto HERNANDEZ, Dr. Osborn Attending Provider [phone] Zelalem HERNANDEZ, Dr. Coker Other Provider Dr. Christian Abdi MD Other Provider Dr. Juarez Baird MD Other Provider Dr. Bola Meraz DO Attending Provider Dr. Bola Meraz DO Other Provider [phone] Dr. Hill Renee MD Other Provider Dr. Jeff Cornelius MD Other Provider Dr. Yury Canas MD Other Provider Ashely HERNANDEZ, Dr. Foote Other Provider Cassandra HERNANDEZ, Dr. Garvin Other Provider [phone] Yamil HERNANDEZ, Dr. Solis Other Provider [phone] Rojas HERNANDEZ, Dr. Enriquez Other Provider [phone] Seble HERNANDEZ, Dr. Hernández Other Provider [phone] Desmond HERNANDEZ, Dr. Snow Other Provider [facility] karma Mosher MD, Dr. Douglas Other Provider [phone] Theo HERNANDEZ, Dr. Whyte Other Provider [phone] Laurent HERNANDEZ, Dr. Raya Other Provider [phone] Angely HERNANDEZ, Dr. Silver Other Provider [phone] Mason Samano DO Other Provider [phone] Carmela HERNANDEZ, Dr. Tam Other Provider [phone] Mallorie HERNANDEZ, Dr. Kelly Other Provider [phone] Kenneth Noland DO Other Provider Rosendo HERNANDEZ, Dr. Wesley Other Provider [phone] Dylan HERNANDEZ, Dr. Colon Other Provider [phone] Medications Current Medications Medication Drug Class(es) Dates [...] take 2 tablets by mo [facility] once daily furosemide (LASIX) 20 mg tablet [...] 11-21-2024 Start: 11-18-2024 take 1 capsule by [facility] once daily zinc sulfate 220 mg (50 [...] patient preference? Yes take 1 capsule by [facility] every six hours as needed oxyCODONE (Oxy-IR) [...] Profile (BMP )on 01-07-2025 BUN Normal 4-19 [facility] Comment on above: Result Comment: Canc elled via OM: Order cancelled - Patient discharged Performed By: #### L 100.0100, L500.2500 ####[facility] [address] [place], [address] BUN/CRE Normal 10-20 [facility] Comment on above: Result Comment: Canc elled via OM: Order cancelled - Patient discharged Performed By: #### L 100.0100, L500.2500 ####[facility] [address] [place], [address] Calcium Normal 7.6-11.0 [facility] Comment on above: Result Comment: Canc elled via OM: Order cancelled - Patient discharged Performed By: #### L 100.0100, L500.2500 ####[facility] [address] [place], [address] CL Normal 98-108 [facility] Comment on above: Result Comment: Canc elled via OM: Order cancelled - Patient discharged Performed By: #### L 100.0100, L500.2500 ####[facility] [address] [place], [address] CO2 Normal 21.0-32.0 [facility] Comment on above: Result Comment: Canc elled via OM: Order cancelled - Patient discharged Performed By: #### L 100.0100, L500.2500 ####[facility] [address] [place], [address] CREAT,SERUM Normal 0.70-1.20 [facility] Comment on above: Result Comment: Canc elled via OM: Order cancelled - Patient discharged Performed By: #### L 100.0100, L500.2500 ####[facility] [address] [place], [address] eGFR Normal >60 [facility] Comment on above: Result Comment: Canc elled via OM: Order cancelled - Patient discharged Performed By: #### L 100.0100, L500.2500 ####[facility] [address] [place], [address] GAP Normal 5-15 [facility] Comment on above: Result Comment: Canc elled via OM: Order cancelled - Patient discharged Performed By: #### L 100.0100, L500.2500 ####[facility] [address] [place], [address] GLU Normal 70-99 [facility] Comment on above: Result Comment: Canc elled via OM: Order cancelled - Patient discharged Performed By: #### L 100.0100, L500.2500 ####[facility] [address] [place], [address] Potassium Normal 3.3-5.1 [facility] Comment on above: Result Comment: Canc elled via OM: Order cancelled - Patient discharged Performed By: #### L 100.0100, L500.2500 ####[facility] [address] [place], [address] Basic Metabolic Profile (BMP) Normal 133-145 [facility] Comment on above: Result Comment: Canc elled via OM: Order cancelled - Patient discharged Performed By: #### L 100.0100, L500.2500 ####[facility] [address] [place], [address] CBC W/Diff, Automatedon 06-0 6-2024 Absolute Neut Normal 2.0-7.7 [facility] Comment on above: Result Comment: Canc elled via OM: Order cancelled - Patient discharged Performed By: #### L 100.0100, L500.2500 ####[facility] [address] [place], [address] HCT Normal 40-54 [facility] Comment on above: Result Comment: Canc elled via OM: Order cancelled - Patient discharged Performed By: #### L 100.0100, L500.2500 ####[facility] [address] [place], [address] HGB Normal 13.0-16.5 [facility] Comment on above: Result Comment: Canc elled via OM: Order cancelled - Patient discharged Performed By: #### L 100.0100, L500.2500 ####[facility] [address] [place], [address] MCH Normal 27.0-32.0 [facility] Comment on above: Result Comment: Canc elled via OM: Order cancelled - Patient discharged Performed By: #### L 100.0100, L500.2500 ####[facility] [address] [place], [address] MCHC Normal 32-36 [facility] Comment on above: Result Comment: Canc elled via OM: Order cancelled - Patient discharged Performed By: #### L 100.0100, L500.2500 ####[facility] [address] [place], [address] MCV Normal 80-94 [facility] Comment on above: Result Comment: Canc elled via OM: Order cancelled - Patient discharged Performed By: #### L 100.0100, L500.2500 ####[facility] [address] [place], [address] NEUT% Normal 47-70 [facility] Comment on above: Result Comment: Canc elled via OM: Order cancelled - Patient discharged Performed By: #### L 100.0100, L500.2500 ####[facility] [address] [place], [address] PLT Normal 150-450 [facility] Comment on above: Result Comment: Canc elled via OM: Order cancelled - Patient discharged Performed By: #### L 100.0100, L500.2500 ####[facility] [address] [place], [address] RBC Normal 4.6-6.2 [facility] Comment on above: Result Comment: Canc elled via OM: Order cancelled - Patient discharged Performed By: #### L 100.0100, L500.2500 ####[facility] [address] [place], [address] RDW CV Normal 11.6-14.6 [facility] Comment on above: Result Comment: Canc elled via OM: Order cancelled - Patient discharged Performed By: #### L 100.0100, L500.2500 ####[facility] [address] [place], [address] RDW SD Normal 35.1-43.9 [facility] Comment on above: Result Comment: Canc elled via OM: Order cancelled - Patient discharged Performed By: #### L 100.0100, L500.2500 ####[facility] [address] [place], [address] WBC Normal 4.4-11.0 [facility] Comment on above: Result Comment: Canc elled via OM: Order cancelled - Patient discharged Performed By: #### L 100.0100, L500.2500 ####[facility] [address] [place], [address] Basic Metabolic Profile (BMP )on 01-06-2025 BUN Normal 4-19 [facility] Comment on above: Result Comment: Canc elled via OM: Order cancelled - Patient discharged Performed By: #### L 500.2500, L100.0100 ####[facility] [address] [place], [address] BUN/CRE Normal 10-20 [facility] Comment on above: Result Comment: Canc elled via OM: Order cancelled - Patient discharged Performed By: #### L 500.2500, L100.0100 ####[facility] [address] [place], [address] Calcium Normal 7.6-11.0 [facility] Comment on above: Result Comment: Canc elled via OM: Order cancelled - Patient discharged Performed By: #### L 500.2500, L100.0100 ####[facility] [address] [place], [address] CL Normal 98-108 [facility] Comment on above: Result Comment: Canc elled via OM: Order cancelled - Patient discharged Performed By: #### L 500.2500, L100.0100 ####[facility] [address] [place], [address] CO2 Normal 21.0-32.0 [facility] Comment on above: Result Comment: Canc elled via OM: Order cancelled - Patient discharged Performed By: #### L 500.2500, L100.0100 ####[facility] [address] [place], [address] CREAT,SERUM Normal 0.70-1.20 [facility] Comment on above: Result Comment: Canc elled via OM: Order cancelled - Patient discharged Performed By: #### L 500.2500, L100.0100 ####[facility] [address] [place], [address] eGFR Normal >60 [facility] Comment on above: Result Comment: Canc elled via OM: Order cancelled - Patient discharged Performed By: #### L 500.2500, L100.0100 ####[facility] [address] [place], [address] GAP Normal 5-15 [facility] Comment on above: Result Comment: Canc elled via OM: Order cancelled - Patient discharged Performed By: #### L 500.2500, L100.0100 ####[facility] [address] [place], [address] GLU Normal 70-99 [facility] Comment on above: Result Comment: Canc elled via OM: Order cancelled - Patient discharged Performed By: #### L 500.2500, L100.0100 ####[facility] [address] [place], [address] Potassium Normal 3.3-5.1 [facility] Comment on above: Result Comment: Canc elled via OM: Order cancelled - Patient discharged Performed By: #### L 500.2500, L100.0100 ####[facility] [address] [place], [address] Basic Metabolic Profile (BMP) Normal 133-145 [facility] Comment on above: Result Comment: Canc elled via OM: Order cancelled - Patient discharged Performed By: #### L 500.2500, L100.0100 ####[facility] [address] [place], [address] CBC W/Diff, Automatedon 06-0 5-2024 Absolute Neut Normal 2.0-7.7 [facility] Comment on above: Result Comment: Canc elled via OM: Order cancelled - Patient discharged Performed By: #### L 500.2500, L100.0100 ####[facility] [address] [place], [address] HCT Normal 40-54 [facility] Comment on above: Result Comment: Canc elled via OM: Order cancelled - Patient discharged Performed By: #### L 500.2500, L100.0100 ####[facility] [address] [place], [address] HGB Normal 13.0-16.5 [facility] Comment on above: Result Comment: Canc elled via OM: Order cancelled - Patient discharged Performed By: #### L 500.2500, L100.0100 ####[facility] [address] [place], [address] MCH Normal 27.0-32.0 [facility] Comment on above: Result Comment: Canc elled via OM: Order cancelled - Patient discharged Performed By: #### L 500.2500, L100.0100 ####[facility] [address] [place], [address] MCHC Normal 32-36 [facility] Comment on above: Result Comment: Canc elled via OM: Order cancelled - Patient discharged Performed By: #### L 500.2500, L100.0100 ####[facility] [address] [place], [address] MCV Normal 80-94 [facility] Comment on above: Result Comment: Canc elled via OM: Order cancelled - Patient discharged Performed By: #### L 500.2500, L100.0100 ####[facility] [address] [place], [address] NEUT% Normal 47-70 [facility] Comment on above: Result Comment: Canc elled via OM: Order cancelled - Patient discharged Performed By: #### L 500.2500, L100.0100 ####[facility] [address] [place], [address] PLT Normal 150-450 [facility] Comment on above: Result Comment: Canc elled via OM: Order cancelled - Patient discharged Performed By: #### L 500.2500, L100.0100 ####[facility] [address] [place], [address] RBC Normal 4.6-6.2 [facility] Comment on above: Result Comment: Canc elled via OM: Order cancelled - Patient discharged Performed By: #### L 500.2500, L100.0100 ####[facility] [address] [place], [address] RDW CV Normal 11.6-14.6 [facility] Comment on above: Result Comment: Canc elled via OM: Order cancelled - Patient discharged Performed By: #### L 500.2500, L100.0100 ####[facility] [address] [place], [address] RDW SD Normal 35.1-43.9 [facility] Comment on above: Result Comment: Canc elled via OM: Order cancelled - Patient discharged Performed By: #### L 500.2500, L100.0100 ####[facility] [address] [place], [address] WBC Normal 4.4-11.0 [facility] Comment on above: Result Comment: Canc elled via OM: Order cancelled - Patient discharged Performed By: #### L 500.2500, L100.0100 ####[facility] [address] [place], [address] Absolute lymphocyte countOrd ered By: Hill Acuña on 01-05-2025 Lymphocytes Auto (Unsp spec) [#/Vol] 0.94 10*3/uL 0.83-4.51 [facility] Anion gap in Serum or Plasma Ordered By: Hill Acuña on 01-05-2025 Anion gap [Moles/Vol] 9 mmol/L 5-15 [facility] Automated lymphocyte count a s percentage of total leukocytesOrdered By: Hill Acuña on 01-05-2025 Lymphocytes/100 WBC Auto (Unsp spec) 13.4 % Low 19-41 [facility] BUN/creatinine ratioOrdered By: Hill Acuña on 01-05-2025 Urea nitrogen/Creatinine [Mass ratio] 11.9 mg/mg 10- [facility] Basic Metabolic Profile (BMP )on 01-05-2025 BUN/CRE 11.9 RATIO Normal - [facility] Comment on above: Performed By: #### L 500.2500, L100.0100 ####[facility] [address] [place], [address] Calcium [Mass/Vol] 7.9 mg/dL Normal 7.6-11.0 [facility] Comment on above: Performed By: #### L 500.2500, L100.0100 ####[facility] [address] [place], [address] Chloride [Moles/Vol] 101 mmol/L Normal 98-108 [facility] Comment on above: Performed By: #### L 500.2500, L100.0100 ####[facility] [address] [place], [address] CO2 [Moles/Vol] 18.5 mmol/L Low 21.0-32.0 [facility] Comment on above: Performed By: #### L 500.2500, L100.0100 ####[facility] [address] [place], [address] Creatinine [Mass/Vol] 0.95 mg/dL Normal 0.70-1.20 [facility] Comment on above: Performed By: #### L 500.2500, L100.0100 ####[facility] [address] [place], [address] ECRCL 95.07 ml/min Normal 50-250 [facility] Comment on above: Performed By: #### L 500.2500, L100.0100 ####[facility] [address] [place], [address] GAP 9 Normal 5-15 [facility] Comment on above: Performed By: #### L 500.2500, L100.0100 ####[facility] [address] [place], [address] GFR/1.73 sq M.predicted among non-blacks MDRD (S/P/Bld) [Vol rate/Area] 92 mL/min/{1.73_m2} Normal >60 [facility] Comment on above: Result Comment: mL/m in/1.73m2 CKD-EPI Creatinine Equation (2020) Performed By: #### L 500.2500, L100.0100 ####[facility] [address] [place], [address] Glucose [Mass/Vol] 356 mg/dL High 70-99 [facility] Comment on above: Performed By: #### L 500.2500, L100.0100 ####[facility] [address] [place], [address] Potassium [Moles/Vol] 3.6 mmol/L Normal 3.3-5.1 [facility] Comment on above: Performed By: #### L 500.2500, L100.0100 ####[facility] [address] [place], [address] Sodium [Moles/Vol] 128 mmol/L Low 133-145 [facility] Comment on above: Performed By: #### L 500.2500, L100.0100 ####[facility] [address] [place], [address] Urea nitrogen [Mass/Vol] 11 mg/dL Normal 4-19 [facility] Comment on above: Performed By: #### L 500.2500, L100.0100 ####[facility] [address] [place], [address] Basophil percentageOrdered B y: Hill Acuña on 01-05-2025 Basophils/100 WBC (Bld) 0.4 % 0-1 [facility] Bedside Glucoseon 01-05-2025 FINGERSTICK GLU 163 mg/dL High 74-106 [facility] Comment on above: Result Comment: BRISA GEMENT OF PATIENT CARE PER NURSING PROTOCOL Performed By: #### L 501.080 ####[facility] [address] [place], [address] FINGERSTICK GLU 191 mg/dL High 74-106 [facility] Comment on above: Result Comment: BRISA GEMENT OF PATIENT CARE PER NURSING PROTOCOL Performed By: #### L 501.080 ####[facility] [address] [place], [address] FINGERSTICK GLU 307 mg/dL High 74-106 [facility] Comment on above: Result Comment: BRISA GEMENT OF PATIENT CARE PER NURSING PROTOCOL Performed By: #### L 501.080 ####[facility] [address] [place], [address] CBC W/Diff, Automatedon Absolute Lymph 0.94 X10 3/uL Normal 0.83-4.51 [facility] Comment on above: Performed By: #### L 500.2500, L100.0100 ####[facility] [address] [place], [address] Absolute Neut 4.8 X10 3/uL Normal 2.0-7.7 [facility] Comment on above: Performed By: #### L 500.2500, L100.0100 ####[facility] [address] [place], [address] Basophils/100 WBC (Bld) 0.4 % Normal 0-1 [facility] Comment on above: Performed By: #### L 500.2500, L100.0100 ####[facility] [address] [place], [address] Eosinophils/100 WBC (Bld) 5.1 % High 0-5 [facility] Comment on above: Performed By: #### L 500.2500, L100.0100 ####[facility] [address] [place], [address] Erythrocyte distribution width (RBC) [Ratio] 16.4 % High 11.6-14.6 [facility] Comment on above: Performed By: #### L 500.2500, L100.0100 ####[facility] [address] [place], [address] Hematocrit (Bld) [Volume fraction] 22.3 % Low 40-54 [facility] Comment on above: Performed By: #### L 500.2500, L100.0100 ####[facility] [address] [place], [address] Hemoglobin (Bld) [Mass/Vol] 7.5 g/dL Low 13.0-16.5 [facility] Comment on above: Performed By: #### L 500.2500, L100.0100 ####[facility] [address] [place], [address] IG% 0.400 Normal 0.0-0.9 [facility] Comment on above: Result Comment: IG% - Immature Granulocytes (promyelocytes, myelocytes andmetamyelocytes) > 1% indicates that a LEFT SHIFT is Present. Performed By: #### L 500.2500, L100.0100 ####[facility] [address] [place], [address] Lymphocytes/100 WBC (Bld) 13.4 % Low 19-41 [facility] Comment on above: Performed By: #### L 500.2500, L100.0100 ####[facility] [address] [place], [address] MCH (RBC) [Entitic mass] 29.1 pg Normal 27.0-32.0 [facility] Comment on above: Performed By: #### L 500.2500, L100.0100 ####[facility] [address] [place], [address] MCHC (RBC) [Mass/Vol] 33.6 g/dL Normal 32-36 [facility] Comment on above: Performed By: #### L 500.2500, L100.0100 ####[facility] [address] [place], [address] MCV (RBC) [Entitic vol] 86.4 fL Normal 80-94 [facility] Comment on above: Performed By: #### L 500.2500, L100.0100 ####[facility] [address] [place], [address] Monocytes/100 WBC (Bld) 11.6 % High 0-10 [facility] Comment on above: Performed By: #### L 500.2500, L100.0100 ####[facility] [address] [place], [address] Neutrophils/100 WBC (Bld) 69.1 % Normal 47-70 [facility] Comment on above: Performed By: #### L 500.2500, L100.0100 ####[facility] [address] [place], [address] Nucleated RBC (Bld) [#/Vol] 0 10*3/uL Normal 0-5 [facility] Comment on above: Performed By: #### L 500.2500, L100.0100 ####[facility] [address] [place], [address] Platelet mean volume (Bld) [Entitic vol] 11.3 fL Normal 6.2-12.0 [facility] Comment on above: Performed By: #### L 500.2500, L100.0100 ####[facility] [address] [place], [address] Platelets (Bld) [#/Vol] 81 10*3/uL Low 150-450 [facility] Comment on above: Performed By: #### L 500.2500, L100.0100 ####[facility] [address] [place], [address] RBC (Bld) [#/Vol] 2.58 10*6/uL Low 4.6-6.2 [facility] Comment on above: Performed By: #### L 500.2500, L100.0100 ####[facility] [address] [place], [address] RDW SD 51.8 fl High 35.1-43.9 [facility] Comment on above: Performed By: #### L 500.2500, L100.0100 ####[facility] [address] [place], [address] WBC (Bld) [#/Vol] 7.0 10*3/uL Normal 4.4-11.0 [facility] Comment on above: Performed By: #### L 500.2500, L100.0100 ####[facility] [address] [place], [address] Carbon dioxide, total [Moles /volume] in Central venous bloodOrdered By: Hill Acuña on 01-05-2025 CO2 [Moles/Vol] 18.5 mmol/L Low 21.0-32.0 [facility] Chloride assayOrdered By: Kvng Acuña on 01-05-2025 Chloride [Moles/Vol] 101 mmol/L 98-108 [facility] Eosinophil percentageOrdered By: Hill Acuña on 01-05-2025 Eosinophils/100 WBC (Bld) 5.1 % High 0-5 [facility] Erythrocyte distribution wid th ratioOrdered By: Hill Acuña on 01-05-2025 Erythrocyte distribution width (RBC) [Ratio] 16.4 % High 11.6-14.6 [facility] Erythrocyte distribution wid th standard deviationOrdered By: Hill Acuña on 01-05-2025 Erythrocyte distribution width (RBC) [Ratio] 51.8 fl High 35.1-43.9 [facility] Glomerular filtration rate ( GFR) estimation/1.73 sq m using serum, plasma, or whole bOrdered By: Hill Acuña on 01-05-2025 GFR/1.73 sq M.predicted among non-blacks MDRD (S/P/Bld) [Vol rate/Area] 92 mL/min/{1.73_m2} >60 [facility] deOrdered By: Hill Acuña on 01-05-2025 Glucose [Mass/Vol] 191 mg/dL High 74-106 [facility] Hematocrit Auto (Bld) [Volum e fraction]Ordered By: Hill Acuña on 01-05-2025 Hematocrit (Bld) [Volume fraction] 22.3 % Low 40-54 [facility] Hemoglobin measurementOrdere d By: Hill Acuña on 01-05-2025 Hemoglobin (Bld) [Mass/Vol] 7.5 g/dL Low 13.0-16.5 [facility] Immature granulocytes/100 WB C Auto (Bld)Ordered By: Hill Acuña on 01-05-2025 Immature granulocytes/100 WBC (Bld) 0.400 % 0.0-0.9 [facility] MCV (mean corpuscular volume ) determinationOrdered By: Hill Acuña on 01-05-2025 MCV (RBC) [Entitic vol] 86.4 fL 80-94 [facility] Mean corpuscular hemoglobin (MCH) determinationOrdered By: Hill Acuña on 01-05-2025 MCH (RBC) [Entitic mass] 29.1 pg 27.0-32.0 [facility] Monocyte percentageOrdered B y: Hill Acuña on 01-05-2025 Monocytes/100 WBC (Bld) 11.6 % High 0-10 [facility] Neutrophil percentageOrdered By: Hill Acuña on 01-05-2025 Neutrophils/100 WBC (Bld) 69.1 % 47-70 [facility] Platelet countOrdered By: Kvng Acuña on 01-05-2025 Platelets (Bld) [#/Vol] 81 10*3/uL Low 150-450 [facility] Potassium measurement (mass/ volume)Ordered By: Hill Acuña on 01-05-2025 Potassium (Unsp spec) [Mass/Vol] 3.6 mmol/L 3.3-5.1 [facility] RBC Auto (Bld) [#/Vol]Ordere d By: Hill Acuña on 01-05-2025 RBC (Bld) [#/Vol] 2.58 10*6/uL Low 4.6-6.2 [facility] Serum creatinine measurement (mass/volume)Ordered By: Hill Acuña on 01-05-2025 Creatinine [Mass/Vol] 0.95 mg/dL 0.70-1.20 [facility] Serum glucose measurement (m ass/volume)Ordered By: Hill Acuña on 01-05-2025 Glucose [Mass/Vol] 356 mg/dL High 70-99 [facility] Serum or plasma calcium roosevelt urement (mass/volume)Ordered By: Hill Acuña on 01-05-2025 Calcium [Mass/Vol] 7.9 mg/dL 7.6-11.0 [facility] Serum or plasma urea nitroge n measurement (mass/volume)Ordered By: Hill Acuña on 01-05-2025 Urea nitrogen [Mass/Vol] 11 mg/dL 4-19 [facility] Sodium levelOrdered By: Paulino Acuña on 01-05-2025 Sodium [Moles/Vol] 128 mmol/L Low 133-145 [facility] White blood cell (WBC) count Ordered By: Hill Acuña on 01-05-2025 WBC (Bld) [#/Vol] 7.0 10*3/uL 4.4-11.0 [facility] Bedside Glucoseon 01-04-2025 FINGERSTICK GLU 369 mg/dL High -[address] [place] [address] Comment on above: Result Comment: BRISA GEMENT OF PATIENT CARE PER NURSING PROTOCOL Performed By: #### L 501.080 ####[facility] [address] [place], [address] FINGERSTICK GLU 320 mg/dL High [address] [place] [address] Comment on above: Result Comment: BRISA GEMENT OF PATIENT CARE PER NURSING PROTOCOL Performed By: #### L 501.080 ####[facility] [address] [place], [address] FINGERSTICK GLU 256 mg/dL High [address] [place] [address] Comment on above: Result Comment: BRISA GEMENT OF PATIENT CARE PER NURSING PROTOCOL Performed By: #### L 501.080 ####[facility] [address] [place], [address] FINGERSTICK GLU 331 mg/dL High [address] [place] [address] Comment on above: Result Comment: BRISA GEMENT OF PATIENT CARE PER NURSING PROTOCOL Performed By: #### L 501.080 ####[facility] [address] [place], [address] Bilirubin, totalOrdered By: Hill Acuña on 01-04-2025 Bilirubin [Mass/Vol] 0.90 mg/dL 0.00-1.30 [facility] Blood manual differential co mment interpretation (narrative result)Ordered By: Hill Acuña on 01-04-2025 Manual differential comment Marco Antonio (Bld) [Interp] SCANNED [facility] CBC-Complete Blood Cnt No Di ffon 01-04-2025 Erythrocyte distribution width (RBC) [Ratio] 17.0 % High 11.6-14.6 [facility] Comment on above: Performed By: #### L 100.0500, L501.2300, L501.5200, L500.4050, L100.4500 ####[facility] [address] [place], [address] Hematocrit (Bld) [Volume fraction] 24.6 % Low 40-54 [facility] Comment on above: Performed By: #### L 100.0500, L501.2300, L501.5200, L500.4050, L100.4500 ####[facility] [address] [place], [address] Hemoglobin (Bld) [Mass/Vol] 7.9 g/dL Low 13.0-16.5 [facility] Comment on above: Performed By: #### L 100.0500, L501.2300, L501.5200, L500.4050, L100.4500 ####[facility] [address] [place], [address] MCH (RBC) [Entitic mass] 29.2 pg Normal 27.0-32.0 [facility] Comment on above: Performed By: #### L 100.0500, L501.2300, L501.5200, L500.4050, L100.4500 ####[facility] [address] [place], [address] MCHC (RBC) [Mass/Vol] 32.1 g/dL Normal 32-36 [facility] Comment on above: Performed By: #### L 100.0500, L501.2300, L501.5200, L500.4050, L100.4500 ####[facility] [address] [place], [address] MCV (RBC) [Entitic vol] 90.8 fL Normal 80-94 [facility] Comment on above: Performed By: #### L 100.0500, L501.2300, L501.5200, L500.4050, L100.4500 ####[facility] [address] [place], [address] Platelet mean volume (Bld) [Entitic vol] 12.1 fL High 6.2-12.0 [facility] Comment on above: Performed By: #### L 100.0500, L501.2300, L501.5200, L500.4050, L100.4500 ####[facility] [address] [place], [address] Platelets (Bld) [#/Vol] 87 10*3/uL Low 150-450 [facility] Comment on above: Performed By: #### L 100.0500, L501.2300, L501.5200, L500.4050, L100.4500 ####[facility] [address] [place], [address] RBC (Bld) [#/Vol] 2.71 10*6/uL Low 4.6-6.2 [facility] Comment on above: Performed By: #### L 100.0500, L501.2300, L501.5200, L500.4050, L100.4500 ####[facility] [address] [place], [address] RDW SD 56.2 fl High 35.1-43.9 [facility] Comment on above: Performed By: #### L 100.0500, L501.2300, L501.5200, L500.4050, L100.4500 ####[facility] [address] [place], [address] WBC (Bld) [#/Vol] 6.4 10*3/uL Normal 4.4-11.0 [facility] Comment on above: Performed By: #### L 100.0500, L501.2300, L501.5200, L500.4050, L100.4500 ####[facility] [address] [place], [address] Comprehensive Metabolic Prof nven 01-04-2025 Albumin [Mass/Vol] 2.4 g/dL Low 3.5-5.0 [facility] Comment on above: Performed By: #### L 100.0500, L501.2300, L501.5200, L500.4050, L100.4500 ####[facility] [address] [place], [address] Albumin/Globulin [Mass ratio] 0.9 {ratio} Normal 0.9-2.4 [facility] Comment on above: Performed By: #### L 100.0500, L501.2300, L501.5200, L500.4050, L100.4500 ####[facility] [address] [place], [address] ALK PHOS 171 U/L High 40-129 [facility] Comment on above: Performed By: #### L 100.0500, L501.2300, L501.5200, L500.4050, L100.4500 ####[facility] [address] [place], [address] ALT [Catalytic activity/Vol] 26 U/L Normal <=46 [facility] Comment on above: Performed By: #### L 100.0500, L501.2300, L501.5200, L500.4050, L100.4500 ####[facility] [address] [place], [address] AST [Catalytic activity/Vol] 54 U/L High <=37 [facility] Comment on above: Performed By: #### L 100.0500, L501.2300, L501.5200, L500.4050, L100.4500 ####[facility] [address] [place], [address] Bilirubin [Mass/Vol] 0.90 mg/dL Normal 0.00-1.30 [facility] Comment on above: Performed By: #### L 100.0500, L501.2300, L501.5200, L500.4050, L100.4500 ####[facility] [address] [place], [address] BUN/CRE 14.6 RATIO Normal 10-20 [facility] Comment on above: Performed By: #### L 100.0500, L501.2300, L501.5200, L500.4050, L100.4500 ####[facility] [address] [place], [address] Calcium [Mass/Vol] 7.9 mg/dL Normal 7.6-11.0 [facility] Comment on above: Performed By: #### L 100.0500, L501.2300, L501.5200, L500.4050, L100.4500 ####[facility] [address] [place], [address] Chloride [Moles/Vol] 103 mmol/L Normal 98-108 [facility] Comment on above: Performed By: #### L 100.0500, L501.2300, L501.5200, L500.4050, L100.4500 ####[facility] [address] [place], [address] CO2 [Moles/Vol] 19.0 mmol/L Low 21.0-32.0 [facility] Comment on above: Performed By: #### L 100.0500, L501.2300, L501.5200, L500.4050, L100.4500 ####[facility] [address] [place], [address] Creatinine [Mass/Vol] 1.03 mg/dL Normal 0.70-1.20 [facility] Comment on above: Performed By: #### L 100.0500, L501.2300, L501.5200, L500.4050, L100.4500 ####[facility] [address] [place], [address] ECRCL 87.82 ml/min Normal 50-250 [facility] Comment on above: Performed By: #### L 100.0500, L501.2300, L501.5200, L500.4050, L100.4500 ####[facility] [address] [place], [address] GAP 9 Normal 5-15 [facility] Comment on above: Performed By: #### L 100.0500, L501.2300, L501.5200, L500.4050, L100.4500 ####[facility] [address] [place], [address] GFR/1.73 sq M.predicted among non-blacks MDRD (S/P/Bld) [Vol rate/Area] 84 mL/min/{1.73_m2} Normal >60 [facility] Comment on above: Result Comment: mL/m in/1.73m2 CKD-EPI Creatinine Equation (2020) Performed By: #### L 100.0500, L501.2300, L501.5200, L500.4050, L100.4500 ####[facility] [address] [place], [address] Globulin (S) [Mass/Vol] 2.9 g/dL Normal 2.2-4.2 [facility] Comment on above: Performed By: #### L 100.0500, L501.2300, L501.5200, L500.4050, L100.4500 ####[facility] [address] [place], [address] Glucose [Mass/Vol] 256 mg/dL High 70-99 [facility] Comment on above: Performed By: #### L 100.0500, L501.2300, L501.5200, L500.4050, L100.4500 ####[facility] [address] [place], [address] Potassium [Moles/Vol] 3.6 mmol/L Normal 3.3-5.1 [facility] Comment on above: Performed By: #### L 100.0500, L501.2300, L501.5200, L500.4050, L100.4500 ####[facility] [address] [place], [address] Sodium [Moles/Vol] 131 mmol/L Low 133-145 [facility] Comment on above: Performed By: #### L 100.0500, L501.2300, L501.5200, L500.4050, L100.4500 ####[facility] [address] [place], [address] T PROT 5.3 g/dL Low 5.9-8.4 [facility] Comment on above: Performed By: #### L 100.0500, L501.2300, L501.5200, L500.4050, L100.4500 ####[facility] [address] [place], [address] Urea nitrogen [Mass/Vol] 15 mg/dL Normal 4-19 [facility] Comment on above: Performed By: #### L 100.0500, L501.2300, L501.5200, L500.4050, L100.4500 ####[facility] [address] [place], [address] Differential Commenton 01-04 SMEAR COMMENT SCANNED Normal [facility] Comment on above: Result Comment: MODE RATE THROMBOCYTOPENIA NOTED Performed By: #### L 100.0500, L501.2300, L501.5200, L500.4050, L100.4500 ####[facility] [address] [place], [address] Magnesiumon 01-04-2025 Magnesium [Mass/Vol] 1.3 mg/dL Low 1.5-2.2 [facility] Comment on above: Performed By: #### L 100.0500, L501.2300, L501.5200, L500.4050, L100.4500 ####[facility] [address] [place], [address] Magnesium measurement (mass/ volume)Ordered By: Hill Acuña on 01-04-2025 Magnesium (Unsp spec) [Mass/Vol] 1.3 mg/dL Low 1.5-2.2 [facility] No Panel InformationOrdered By: Hill Acuña on 01-04-2025 54 U/L High <38 [facility] Phosphoruson 01-04-2025 Phosphate [Mass/Vol] 2.3 mg/dL Low 2.7-4.5 [facility] Comment on above: Performed By: #### L 100.0500, L501.2300, L501.5200, L500.4050, L100.4500 ####[facility] [address] [place], [address] Serum globulin measurementOr dered By: Hill Acuña on 01-04-2025 Globulin (S) [Mass/Vol] 2.9 g/dL 2.2-4.2 [facility] Serum or plasma alanine thomas otransferase (ALT) measurementOrdered By: Hill Acuña on 01-04-2025 ALT [Catalytic activity/Vol] 26 U/L <47 [facility] Serum or plasma albumin roosevelt urement (mass/volume)Ordered By: Hill Acuña on 01-04-2025 Albumin [Mass/Vol] 2.4 g/dL Low 3.5-5.0 [facility] Serum or plasma albumin/glob ulin mass ratioOrdered By: Hill Acuña on 01-04-2025 Albumin/Globulin [Mass ratio] 0.9 {ratio} 0.9-2.4 [facility] Serum or plasma alkaline kendrick sphatase measurementOrdered By: Hill Acuña on 01-04-2025 ALP [Catalytic activity/Vol] 171 U/L High 40-129 [facility] Total proteinOrdered By: Hugo Acuña on 01-04-2025 Protein [Mass/Vol] 5.3 g/dL Low 5.9-8.4 [facility] Urine Cultureon 01-04-2025 URC Yeast, not Mary albicans Erie Count 11,000-25,000 Normal [facility] Comment on above: Performed By: #### M 100.2200, L400.0001 ####[facility] [address] [place], [address] Basic Metabolic Profile (BMP )on 01-03-2025 BUN/CRE 17.3 RATIO Normal 10-20 [facility] Comment on above: Performed By: #### L 500.2500, L100.0100 ####[facility] [address] [place], [address] Calcium [Mass/Vol] 8.1 mg/dL Normal 7.6-11.0 [facility] Comment on above: Performed By: #### L 500.2500, L100.0100 ####[facility] [address] [place], [address] Chloride [Moles/Vol] 101 mmol/L Normal 98-108 [facility] Comment on above: Performed By: #### L 500.2500, L100.0100 ####[facility] [address] [place], [address] CO2 [Moles/Vol] 18.2 mmol/L Low 21.0-32.0 [facility] Comment on above: Performed By: #### L 500.2500, L100.0100 ####[facility] [address] [place], [address] Creatinine [Mass/Vol] 1.70 mg/dL High 0.70-1.20 [facility] Comment on above: Performed By: #### L 500.2500, L100.0100 ####[facility] [address] [place], [address] ECRCL 52.32 ml/min Normal 50-250 [facility] Comment on above: Performed By: #### L 500.2500, L100.0100 ####[facility] [address] [place], [address] GAP 11 Normal 5-15 [facility] Comment on above: Performed By: #### L 500.2500, L100.0100 ####[facility] [address] [place], [address] GFR/1.73 sq M.predicted among non-blacks MDRD (S/P/Bld) [Vol rate/Area] 46 mL/min/{1.73_m2} Low >60 [facility] Comment on above: Result Comment: mL/m in/1.73m2 CKD-EPI Creatinine Equation (2020) Performed By: #### L 500.2500, L100.0100 ####[facility] [address] [place], [address] Glucose [Mass/Vol] 351 mg/dL High 70-99 [facility] Comment on above: Performed By: #### L 500.2500, L100.0100 ####[facility] [address] [place], [address] Potassium [Moles/Vol] 3.6 mmol/L Normal 3.3-5.1 [facility] Comment on above: Performed By: #### L 500.2500, L100.0100 ####[facility] [address] [place], [address] Sodium [Moles/Vol] 130 mmol/L Low 133-145 [facility] Comment on above: Performed By: #### L 500.2500, L100.0100 ####[facility] [address] [place], [address] Urea nitrogen [Mass/Vol] 29 mg/dL High 4-19 [facility] Comment on above: Performed By: #### L 500.2500, L100.0100 ####[facility] [address] [place], [address] Bedside Glucoseon - FINGERSTICK GLU 356 mg/dL High 74-106 [facility] Comment on above: Result Comment: BRISA GEMENT OF PATIENT CARE PER NURSING PROTOCOL Performed By: #### L 501.080 ####[facility] [address] [place], [address] FINGERSTICK GLU 483 mg/dL Invalid Interpretation Code 74-106 [facility] Comment on above: Result Comment: Insu jaye GivenMANAGEMENT OF PATIENT CARE PER NURSING PROTOCOL Performed By: #### L 501.080 ####[facility] [address] [place], [address] FINGERSTICK GLU 338 mg/dL High 74-106 [facility] Comment on above: Result Comment: BRISA GEMENT OF PATIENT CARE PER NURSING PROTOCOL Performed By: #### L 501.080 ####[facility] [address] [place], [address] FINGERSTICK GLU 322 mg/dL High 74-106 [facility] Comment on above: Result Comment: BRISA GEMENT OF PATIENT CARE PER NURSING PROTOCOL Performed By: #### L 501.080 ####[facility] [address] [place], [address] CBC W/Diff, Automatedon 06-0 Absolute Lymph 1.13 X10 3/uL Normal 0.83-4.51 [facility] Comment on above: Performed By: #### L 500.2500, L100.0100 ####[facility] [address] [place], [address] Absolute Neut 5.5 X10 3/uL Normal 2.0-7.7 [facility] Comment on above: Performed By: #### L 500.2500, L100.0100 ####[facility] [address] [place], [address] Basophils/100 WBC (Bld) 0.2 % Normal 0-1 [facility] Comment on above: Performed By: #### L 500.2500, L100.0100 ####[facility] [address] [place], [address] Eosinophils/100 WBC (Bld) 6.4 % High 0-5 [facility] Comment on above: Performed By: #### L 500.2500, L100.0100 ####[facility] [address] [place], [address] Erythrocyte distribution width (RBC) [Ratio] 16.6 % High 11.6-14.6 [facility] Comment on above: Performed By: #### L 500.2500, L100.0100 ####[facility] [address] [place], [address] Hematocrit (Bld) [Volume fraction] 24.2 % Low 40-54 [facility] Comment on above: Performed By: #### L 500.2500, L100.0100 ####[facility] [address] [place], [address] Hemoglobin (Bld) [Mass/Vol] 8.0 g/dL Low 13.0-16.5 [facility] Comment on above: Performed By: #### L 500.2500, L100.0100 ####[facility] [address] [place], [address] IG% 0.500 Normal 0.0-0.9 [facility] Comment on above: Result Comment: IG% - Immature Granulocytes (promyelocytes, myelocytes andmetamyelocytes) > 1% indicates that a LEFT SHIFT is Present. Performed By: #### L 500.2500, L100.0100 ####[facility] [address] [place], [address] Lymphocytes/100 WBC (Bld) 13.9 % Low 19-41 [facility] Comment on above: Performed By: #### L 500.2500, L100.0100 ####[facility] [address] [place], [address] MCH (RBC) [Entitic mass] 29.0 pg Normal 27.0-32.0 [facility] Comment on above: Performed By: #### L 500.2500, L100.0100 ####[facility] [address] [place], [address] MCHC (RBC) [Mass/Vol] 33.1 g/dL Normal 32-36 [facility] Comment on above: Performed By: #### L 500.2500, L100.0100 ####[facility] [address] [place], [address] MCV (RBC) [Entitic vol] 87.7 fL Normal 80-94 [facility] Comment on above: Performed By: #### L 500.2500, L100.0100 ####[facility] [address] [place], [address] Monocytes/100 WBC (Bld) 11.5 % High 0-10 [facility] Comment on above: Performed By: #### L 500.2500, L100.0100 ####[facility] [address] [place], [address] Neutrophils/100 WBC (Bld) 67.5 % Normal 47-70 [facility] Comment on above: Performed By: #### L 500.2500, L100.0100 ####[facility] [address] [place], [address] Nucleated RBC (Bld) [#/Vol] 0 10*3/uL Normal 0-5 [facility] Comment on above: Performed By: #### L 500.2500, L100.0100 ####[facility] [address] [place], [address] Platelet mean volume (Bld) [Entitic vol] 12.0 fL Normal 6.2-12.0 [facility] Comment on above: Performed By: #### L 500.2500, L100.0100 ####[facility] [address] [place], [address] Platelets (Bld) [#/Vol] 115 10*3/uL Low 150-450 [facility] Comment on above: Performed By: #### L 500.2500, L100.0100 ####[facility] [address] [place], [address] RBC (Bld) [#/Vol] 2.76 10*6/uL Low 4.6-6.2 [facility] Comment on above: Performed By: #### L 500.2500, L100.0100 ####[facility] [address] [place], [address] RDW SD 53.0 fl High 35.1-43.9 [facility] Comment on above: Performed By: #### L 500.2500, L100.0100 ####[facility] [address] [place], [address] WBC (Bld) [#/Vol] 8.1 10*3/uL Normal 4.4-11.0 [facility] Comment on above: Performed By: #### L 500.2500, L100.0100 ####[facility] [address] [place], [address] Abdomen/Pelvis without Conto n 01-02-2025 Abdomen/Pelvis without Cont Normal [facility] Absolute lymphocyte countOrd ered By: Roddy Reeves on 01-02-2025 Lymphocytes Auto (Unsp spec) [#/Vol] 1.55 10*3/uL 0.83-4.51 [facility] Alcohol, Blood (Medical)-Ser umon 01-02-2025 SERUM ETOH < 10.1 Normal <=10.0 [facility] Comment on above: Result Comment: This test is for medical purposes only. The legaldefinition of intoxication varies according to local law. Performed By: #### L 501.9100 ####[facility] [address] [facility] [address] Anion gap in Serum or Plasma Ordered By: Roddy Reeves on 01-02-2025 Anion gap [Moles/Vol] 17 mmol/L High 5-15 [facility] Automated lymphocyte count a s percentage of total leukocytesOrdered By: Roddy Reeves on 01-02-2025 Lymphocytes/100 WBC Auto (Unsp spec) 12.2 % Low 19-41 [facility] BUN/creatinine ratioOrdered By: Roddy Reeves on 01-02-2025 Urea nitrogen/Creatinine [Mass ratio] 12.9 mg/mg 10-20 [facility] Basophil percentageOrdered B y: Roddy Reeves on 01-02-2025 Basophils/100 WBC (Bld) 0.4 % 0-1 [facility] Bedside Glucoseon 01-02-2025 FINGERSTICK GLU 354 mg/dL High 74-106 [facility] Comment on above: Result Comment: BRISA GEMENT OF PATIENT CARE PER NURSING PROTOCOL Performed By: #### L 501.080 ####[facility] [address] [facility] [address] FINGERSTICK GLU 363 mg/dL High -[address] [place] [address] Comment on above: Result Comment: BRISA GEMENT OF PATIENT CARE PER NURSING PROTOCOL Performed By: #### L 501.080 ####[facility] [address] [facility] [address] FINGERSTICK GLU 245 mg/dL High [address] [place] [address] Comment on above: Result Comment: BRISA GEMENT OF PATIENT CARE PER NURSING PROTOCOL Performed By: #### L 501.080 ####[facility] [address] [place], [address] FINGERSTICK GLU 188 mg/dL High 74-106 [facility] Comment on above: Result Comment: BRISA MOROCHO OF PATIENT CARE PER NURSING PROTOCOL Performed By: #### L 501.080 ####[facility] [address] [place], [address] Bilirubin Test strip Ql (U)O rdered By: Roddy Reeves on 01-02-2025 Bilirubin Ql (U) Negative Negative [facility] Bilirubin, totalOrdered By: Roddy Reeves on 01-02-2025 Bilirubin [Mass/Vol] 0.90 mg/dL 0.00-1.30 [facility] Brain/Head without Contrasto n 01-02-2025 Brain/Head without Contrast Normal [facility] CBC W/Diff, Automatedon 06-0 Absolute Lymph 1.55 X10 3/uL Normal 0.83-4.51 [facility] Comment on above: Performed By: #### L 500.4050, L100.0100, L501.2450 ####[facility] [address] [place], [address] Absolute Neut 8.6 X10 3/uL High 2.0-7.7 [facility] Comment on above: Performed By: #### L 500.4050, L100.0100, L501.2450 ####[facility] [address] [place], [address] Basophils/100 WBC (Bld) 0.4 % Normal 0-1 [facility] Comment on above: Performed By: #### L 500.4050, L100.0100, L501.2450 ####[facility] [address] [place], [address] Eosinophils/100 WBC (Bld) 6.9 % High 0-5 [facility] Comment on above: Performed By: #### L 500.4050, L100.0100, L501.2450 ####[facility] [address] [place], [address] Erythrocyte distribution width (RBC) [Ratio] 16.4 % High 11.6-14.6 [facility] Comment on above: Performed By: #### L 500.4050, L100.0100, L501.2450 ####[facility] [address] [place], [address] Hematocrit (Bld) [Volume fraction] 28.0 % Low 40-54 [facility] Comment on above: Performed By: #### L 500.4050, L100.0100, L501.2450 ####[facility] [address] [place], [address] Hemoglobin (Bld) [Mass/Vol] 9.5 g/dL Low 13.0-16.5 [facility] Comment on above: Performed By: #### L 500.4050, L100.0100, L501.2450 ####[facility] [address] [place], [address] IG% 0.600 Normal 0.0-0.9 [facility] Comment on above: Result Comment: IG% - Immature Granulocytes (promyelocytes, myelocytes andmetamyelocytes) > 1% indicates that a LEFT SHIFT is Present. Performed By: #### L 500.4050, L100.0100, L501.2450 ####[facility] [address] [place], [address] Lymphocytes/100 WBC (Bld) 12.2 % Low 19-41 [facility] Comment on above: Performed By: #### L 500.4050, L100.0100, L501.2450 ####[facility] [address] [place], [address] MCH (RBC) [Entitic mass] 29.6 pg Normal 27.0-32.0 [facility] Comment on above: Performed By: #### L 500.4050, L100.0100, L501.2450 ####[facility] [address] [place], [address] MCHC (RBC) [Mass/Vol] 33.9 g/dL Normal 32-36 [facility] Comment on above: Performed By: #### L 500.4050, L100.0100, L501.2450 ####[facility] [address] [place], [address] MCV (RBC) [Entitic vol] 87.2 fL Normal 80-94 [facility] Comment on above: Performed By: #### L 500.4050, L100.0100, L501.2450 ####[facility] [address] [place], [address] Monocytes/100 WBC (Bld) 11.9 % High 0-10 [facility] Comment on above: Performed By: #### L 500.4050, L100.0100, L501.2450 ####[facility] [address] [place], [address] Neutrophils/100 WBC (Bld) 68.0 % Normal 47-70 [facility] Comment on above: Performed By: #### L 500.4050, L100.0100, L501.2450 ####[facility] [address] [place], [address] Nucleated RBC (Bld) [#/Vol] 0 10*3/uL Normal 0-5 [facility] Comment on above: Performed By: #### L 500.4050, L100.0100, L501.2450 ####[facility] [address] [place], [address] Platelet mean volume (Bld) [Entitic vol] 12.1 fL High 6.2-12.0 [facility] Comment on above: Performed By: #### L 500.4050, L100.0100, L501.2450 ####[facility] [address] [place], [address] Platelets (Bld) [#/Vol] 171 10*3/uL Normal 150-450 [facility] Comment on above: Performed By: #### L 500.4050, L100.0100, L501.2450 ####[facility] [address] [place], [address] RBC (Bld) [#/Vol] 3.21 10*6/uL Low 4.6-6.2 [facility] Comment on above: Performed By: #### L 500.4050, L100.0100, L501.2450 ####[facility] [address] [place], [address] RDW SD 51.1 fl High 35.1-43.9 [facility] Comment on above: Performed By: #### L 500.4050, L100.0100, L501.2450 ####[facility] [address] [place], [address] WBC (Bld) [#/Vol] 12.7 10*3/uL High 4.4-11.0 [facility] Comment on above: Performed By: #### L 500.4050, L100.0100, L501.2450 ####[facility] [address] [place], [address] Carbon dioxide, total [Moles /volume] in Central venous bloodOrdered By: Roddy Reeves on 01-02-2025 CO2 [Moles/Vol] 19.6 mmol/L Low 21.0-32.0 [facility] Chloride assayOrdered By: Catrachito Reeves on 01-02-2025 Chloride [Moles/Vol] 95 mmol/L Low 98-108 [facility] Comprehensive Metabolic Prof ilon 01-02-2025 Albumin [Mass/Vol] 2.8 g/dL Low 3.5-5.0 [facility] Comment on above: Performed By: #### L 500.4050, L100.0100, L501.2450 ####[facility] [address] [place], [address] Albumin/Globulin [Mass ratio] 0.8 {ratio} Low 0.9-2.4 [facility] Comment on above: Performed By: #### L 500.4050, L100.0100, L501.2450 ####[facility] [address] [place], [address] ALK PHOS 191 U/L High 40-129 [facility] Comment on above: Performed By: #### L 500.4050, L100.0100, L501.2450 ####[facility] [address] [place], [address] ALT [Catalytic activity/Vol] 23 U/L Normal <=46 [facility] Comment on above: Performed By: #### L 500.4050, L100.0100, L501.2450 ####[facility] [address] [place], [address] AST [Catalytic activity/Vol] 37 U/L Normal <=37 [facility] Comment on above: Performed By: #### L 500.4050, L100.0100, L501.2450 ####[facility] [address] [place], [address] Bilirubin [Mass/Vol] 0.90 mg/dL Normal 0.00-1.30 [facility] Comment on above: Performed By: #### L 500.4050, L100.0100, L501.2450 ####[facility] [address] [place], [address] BUN/CRE 12.9 RATIO Normal 10-20 [facility] Comment on above: Performed By: #### L 500.4050, L100.0100, L501.2450 ####[facility] [address] [place], [address] Calcium [Mass/Vol] 9.0 mg/dL Normal 7.6-11.0 [facility] Comment on above: Performed By: #### L 500.4050, L100.0100, L501.2450 ####[facility] [address] [place], [address] Chloride [Moles/Vol] 95 mmol/L Low 98-108 [facility] Comment on above: Performed By: #### L 500.4050, L100.0100, L501.2450 ####[facility] [address] [place], [address] CO2 [Moles/Vol] 19.6 mmol/L Low 21.0-32.0 [facility] Comment on above: Performed By: #### L 500.4050, L100.0100, L501.2450 ####[facility] [address] [place], [address] Creatinine [Mass/Vol] 3.54 mg/dL High 0.70-1.20 [facility] Comment on above: Performed By: #### L 500.4050, L100.0100, L501.2450 ####[facility] [address] [place], [address] ECRCL 22.75 ml/min Low 50-250 [facility] Comment on above: Performed By: #### L 500.4050, L100.0100, L501.2450 ####[facility] [address] [place], [address] GAP 17 High 5-15 [facility] Comment on above: Performed By: #### L 500.4050, L100.0100, L501.2450 ####[facility] [address] [place], [address] GFR/1.73 sq M.predicted among non-blacks MDRD (S/P/Bld) [Vol rate/Area] 19 mL/min/{1.73_m2} Low >60 [facility] Comment on above: Result Comment: mL/m in/1.73m2 CKD-EPI Creatinine Equation (2020) Performed By: #### L 500.4050, L100.0100, L501.2450 ####[facility] [address] [place], [address] Globulin (S) [Mass/Vol] 3.4 g/dL Normal 2.2-4.2 [facility] Comment on above: Performed By: #### L 500.4050, L100.0100, L501.2450 ####[facility] [address] [place], [address] Glucose [Mass/Vol] 164 mg/dL High 70-99 [facility] Comment on above: Performed By: #### L 500.4050, L100.0100, L501.2450 ####[facility] [address] [place], [address] Potassium [Moles/Vol] 2.6 mmol/L Invalid Interpretation Code 3.3-5.1 [facility] Comment on above: Result Comment: Crit ical Result(s) Called at: 0419 by:??NOREEN DOMINGUEZ Results read back by same. Performed By: #### L 500.4050, L100.0100, L501.2450 ####[facility] [address] [place], [address] Sodium [Moles/Vol] 132 mmol/L Low 133-145 [facility] Comment on above: Performed By: #### L 500.4050, L100.0100, L501.2450 ####[facility] [address] [place], [address] T PROT 6.1 g/dL Normal 5.9-8.4 [facility] Comment on above: Performed By: #### L 500.4050, L100.0100, L501.2450 ####[facility] [address] [place], [place], [address] Urea nitrogen [Mass/Vol] 46 mg/dL High 4-19 [facility] Comment on above: Performed By: #### L 500.4050, L100.0100, L501.2450 ####[facility] [address] [place], [place], [address] Emergency Department Summary on 01-02-2025 Emergency Department Summary Normal [facility] Eosinophil percentageOrdered By: Roddy Reeves on 01-02-2025 Eosinophils/100 WBC (Bld) 6.9 % High 0-5 [facility] Erythrocyte distribution wid th ratioOrdered By: Roddy Reeves on 01-02-2025 Erythrocyte distribution width (RBC) [Ratio] 16.4 % High 11.6-14.6 [facility] Erythrocyte distribution wid th standard deviationOrdered By: Roddy Reeves on 01-02-2025 Erythrocyte distribution width (RBC) [Ratio] 51.1 fl High 35.1-43.9 [facility] Glomerular filtration rate ( GFR) estimation/1.73 sq m using serum, plasma, or whole bOrdered By: Roddy Reeves on 01-02-2025 GFR/1.73 sq M.predicted among non-blacks MDRD (S/P/Bld) [Vol rate/Area] 19 mL/min/{1.73_m2} Low >60 [facility] H AND P Exam - Hospitaliston 01-02-2025 H&P Exam - Hospitalist Normal [facility] Hematocrit Auto (Bld) [Volum e fraction]Ordered By: Roddy Reeves on 01-02-2025 Hematocrit (Bld) [Volume fraction] 28.0 % Low 40-54 [facility] Hemoglobin measurementOrdere d By: Roddy Reeves on 01-02-2025 Hemoglobin (Bld) [Mass/Vol] 9.5 g/dL Low 13.0-16.5 [facility] Immature granulocytes/100 WB C Auto (Bld)Ordered By: Roddy Reeves on 01-02-2025 Immature granulocytes/100 WBC (Bld) 0.600 % 0.0-0.9 [facility] Ketones Test strip Ql (U)Ord ered By: Roddy Reeves on 01-02-2025 Ketones Ql (U) 5 mg/dl High Negative [facility] Lipaseon 01-02-2025 Lipase [Catalytic activity/Vol] 45 U/L Normal 13-75 [facility] Comment on above: Result Comment: Siddhartha bhat note:LIPASE revised reference range effective 22.New Lipase methodology. Expected to produce lower valuesthan the previous assay method.NEW Reference Range: 13 - 75 U/L Performed By: #### L 500.4050, L100.0100, L501.2450 ####[facility] [address] [place], [place], [address] MCV (mean corpuscular volume ) determinationOrdered By: Roddy Reeves on 01-02-2025 MCV (RBC) [Entitic vol] 87.2 fL 80-94 [facility] Magnesiumon 01-02-2025 Magnesium [Mass/Vol] 2.0 mg/dL Normal 1.5-2.2 [facility] Comment on above: Performed By: #### L 501.5200 ####[facility] [address] [place], [address] Magnesium measurement (mass/ volume)Ordered By: Roddy Reeves on 01-02-2025 Magnesium (Unsp spec) [Mass/Vol] 2.0 mg/dL 1.5-2.2 [facility] Mean corpuscular hemoglobin (MCH) determinationOrdered By: Roddy Reeves on 01-02-2025 MCH (RBC) [Entitic mass] 29.6 pg 27.0-32.0 [facility] Monocyte percentageOrdered B y: Roddy Reeves on 01-02-2025 Monocytes/100 WBC (Bld) 11.9 % High 0-10 [facility] Mucus LM Ql (Urine sed)Order ed By: Roddy Reeves on 01-02-2025 Mucus Ql (Urine sed) 0 SEEN /hpf [facility] Neutrophil percentageOrdered By: Roddy Reeves on 01-02-2025 Neutrophils/100 WBC (Bld) 68.0 % 47-70 [facility] Nitrite Test strip Ql (U)Ord ered By: Roddy Reeves on 01-02-2025 Nitrite Ql (U) Negative Negative [facility] No Panel InformationOrdered By: Roddy Reeves on 01-02-2025 37 U/L <38 [facility] Platelet countOrdered By: Catrachito Reeves on 01-02-2025 Platelets (Bld) [#/Vol] 171 10*3/uL 150-450 [facility] Potassium measurement (mass/ volume)Ordered By: Roddy Reeves on 01-02-2025 Potassium (Unsp spec) [Mass/Vol] 2.6 mmol/L Low 3.3-5.1 [facility] Protein Test strip Ql (U)Ord ered By: Roddy Reeves on 01-02-2025 Protein Ql (U) 100 mg/dl High Negative [facility] RBC Auto (Bld) [#/Vol]Ordere d By: Roddy Reeves on 01-02-2025 RBC (Bld) [#/Vol] 3.21 10*6/uL Low 4.6-6.2 [facility] Serum creatinine measurement (mass/volume)Ordered By: Roddy Reeves on 01-02-2025 Creatinine [Mass/Vol] 3.54 mg/dL High 0.70-1.20 [facility] Serum globulin measurementOr dered By: Roddy Reeves on 01-02-2025 Globulin (S) [Mass/Vol] 3.4 g/dL 2.2-4.2 [facility] Serum glucose measurement (m ass/volume)Ordered By: Roddy Reeves on 01-02-2025 Glucose [Mass/Vol] 164 mg/dL High 70-99 [facility] Serum or plasma alanine thomas otransferase (ALT) measurementOrdered By: Roddy Reeves on 01-02-2025 ALT [Catalytic activity/Vol] 23 U/L <47 [facility] Serum or plasma albumin roosevelt urement (mass/volume)Ordered By: Roddy Reeves on 01-02-2025 Albumin [Mass/Vol] 2.8 g/dL Low 3.5-5.0 [facility] Serum or plasma albumin/glob ulin mass ratioOrdered By: Roddy Reeves on 01-02-2025 Albumin/Globulin [Mass ratio] 0.8 {ratio} Low 0.9-2.4 [facility] Serum or plasma alkaline kendrick sphatase measurementOrdered By: Roddy Reeves on 01-02-2025 ALP [Catalytic activity/Vol] 191 U/L High 40-129 [facility] Serum or plasma calcium roosveelt urement (mass/volume)Ordered By: Roddy Reeves on 01-02-2025 Calcium [Mass/Vol] 9.0 mg/dL 7.6-11.0 [facility] Serum or plasma ethanol roosevelt urement (mass/volume)Ordered By: Roddy Reeves on 01-02-2025 Ethanol [Mass/Vol] mg/dL <10.1 [facility] Serum or plasma urea nitroge n measurement (mass/volume)Ordered By: Roddy Reeves on 01-02-2025 Urea nitrogen [Mass/Vol] 46 mg/dL High 4-19 [facility] Sodium levelOrdered By: Valentín Reeves on 01-02-2025 Sodium [Moles/Vol] 132 mmol/L Low 133-145 [facility] Spine Cervical without Contr ason 01-02-2025 Spine Cervical without Contras Normal [facility] Squamous epithelial cells de tection in urine sediment by light microscopyOrdered By: Roddy Reeves on 01-02-2025 Epithelial cells.squamous LM Ql (Urine sed) 0 SEEN /hpf 0-5 [facility] Total proteinOrdered By: Zoila Reeves on 01-02-2025 Protein [Mass/Vol] 6.1 g/dL 5.9-8.4 [facility] Urinalysis, Completeon 01-02 BACTERIA 3+ /hpf Normal None Seen [facility] Comment on above: Order Comment: COLOR OF URINE MAY AFFECT DIPSTICK RESULTS.CLEAN CATCH Performed By: #### M 100.2200, L400.0001 ####[facility] [address] [place], [address] RBC > 100 SEEN Normal 0-5 [facility] Comment on above: Order Comment: COLOR OF URINE MAY AFFECT DIPSTICK RESULTS.CLEAN CATCH Performed By: #### M 100.2200, L400.0001 ####[facility] [address] [place], [address] WBC 25-50 SEEN Normal 0-5 [facility] Comment on above: Order Comment: COLOR OF URINE MAY AFFECT DIPSTICK RESULTS.CLEAN CATCH Performed By: #### M 100.2200, L400.0001 ####[facility] [address] [place], [address] BILIRUBIN URINE Negative Normal Negative [facility] Comment on above: Order Comment: COLOR OF URINE MAY AFFECT DIPSTICK RESULTS.CLEAN CATCH Performed By: #### M 100.2200, L400.0001 ####[facility] [address] [place], [address] Clarity (U) Turbid Normal Clear [facility] Comment on above: Order Comment: COLOR OF URINE MAY AFFECT DIPSTICK RESULTS.CLEAN CATCH Performed By: #### M 100.2200, L400.0001 ####[facility] [address] [place], [address] Color (U) Red Normal Yellow [facility] Comment on above: Order Comment: COLOR OF URINE MAY AFFECT DIPSTICK RESULTS.CLEAN CATCH Performed By: #### M 100.2200, L400.0001 ####[facility] [address] [place], [address] GLUCOSE, UR Normal Normal Normal [facility] Comment on above: Order Comment: COLOR OF URINE MAY AFFECT DIPSTICK RESULTS.CLEAN CATCH Performed By: #### M 100.2200, L400.0001 ####[facility] [address] [place], [address] KETONE UR 5 mg/dl Abnormal Negative [facility] Comment on above: Order Comment: COLOR OF URINE MAY AFFECT DIPSTICK RESULTS.CLEAN CATCH Performed By: #### M 100.2200, L400.0001 ####[facility] [address] [place], [address] LEUK ESTERASE 500 /ul Abnormal Negative [facility] Comment on above: Order Comment: COLOR OF URINE MAY AFFECT DIPSTICK RESULTS.CLEAN CATCH Performed By: #### M 100.2200, L400.0001 ####[facility] [address] [place], [address] Nitrite Ql (U) Negative Normal Negative [facility] Comment on above: Order Comment: COLOR OF URINE MAY AFFECT DIPSTICK RESULTS.CLEAN CATCH Performed By: #### M 100.2200, L400.0001 ####[facility] [address] [place], [address] OCCULT BLOOD-UR 250 /ul Abnormal Negative [facility] Comment on above: Order Comment: COLOR OF URINE MAY AFFECT DIPSTICK RESULTS.CLEAN CATCH Performed By: #### M 100.2200, L400.0001 ####[facility] [address] [place], [address] pH UR 6.0 Normal 5.0 - 8.0 [facility] Comment on above: Order Comment: COLOR OF URINE MAY AFFECT DIPSTICK RESULTS.CLEAN CATCH Performed By: #### M 100.2200, L400.0001 ####[facility] [address] [place], [address] PROT DIPSTX 100 mg/dl Abnormal Negative [facility] Comment on above: Order Comment: COLOR OF URINE MAY AFFECT DIPSTICK RESULTS.CLEAN CATCH Performed By: #### M 100.2200, L400.0001 ####[facility] [address] [place], [address] SP.GR. DIPSTX 1.015 Normal 1.002-1.030 [facility] Comment on above: Order Comment: COLOR OF URINE MAY AFFECT DIPSTICK RESULTS.CLEAN CATCH Performed By: #### M 100.2200, L400.0001 ####[facility] [address] [place], [address] UROBILI Normal Normal Normal [facility] Comment on above: Order Comment: COLOR OF URINE MAY AFFECT DIPSTICK RESULTS.CLEAN CATCH Performed By: #### M 100.2200, L400.0001 ####[facility] [address] [place], [address] EPI,SQUAMOUS 0 SEEN Normal 0-5 [facility] Comment on above: Order Comment: COLOR OF URINE MAY AFFECT DIPSTICK RESULTS.CLEAN CATCH Performed By: #### M 100.2200, L400.0001 ####[facility] [address] [place], [address] Mucus Ql (Urine sed) 0 SEEN Normal [facility] Comment on above: Order Comment: COLOR OF URINE MAY AFFECT DIPSTICK RESULTS.CLEAN CATCH Performed By: #### M 100.2200, L400.0001 ####[facility] [address] [place], [address] Urine clarityOrdered By: Zoila Reeves on 01-02-2025 Clarity (U) Turbid Clear [facility] Urine color determinationOrd ered By: Roddy Reeves on 01-02-2025 Color (U) Red Yellow [facility] Urine cultureOrdered By: Zoila Reeves on 01-02-2025 Bacteria identified Cx Nom (U) Yeast, not Mary albicans Abnormal [facility] Urine glucose detectionOrder ed By: Roddy Reeves on 01-02-2025 Glucose Ql (U) Normal mg/dl Normal [facility] Urine leukocyte esterase det ection by dipstickOrdered By: Roddy Reeves on 01-02-2025 Leukocyte esterase Test strip Ql (U) 500 /ul High Negative [facility] Urine pHOrdered By: Roddy gonzalez on 01-02-2025 pH (U) 6.0 [pH] 5.0 - 8.0 [facility] Urine sediment bacteria coun t by microscopy (number/high power field)Ordered By: Roddy Reeves on 01-02-2025 Bacteria LM.HPF (Urine sed) [#/Area] 3 /[HPF] None Seen [facility] Urine specific gravity measu rementOrdered By: Roddy Reeves on 01-02-2025 Specific gravity (U) [Rel density] 1.015 1.002-1.030 [facility] Urine urobilinogen measureme ntOrdered By: Roddy Reeves on 01-02-2025 Urobilinogen Ql (U) Normal mg/dl Normal [facility] Venous blood ammonia measure mentOrdered By: Roddyniko Reeves on 01-02-2025 Ammonia (P) [Moles/Vol] 40.4 umol/L Normal 16-60 [facility] Comment on above: Performed By: #### L 503.5510 ####[facility] [address] [place], [address] White blood cell (WBC) count Ordered By: Roddy Reeves on 01-02-2025 WBC (Bld) [#/Vol] 12.7 10*3/uL High 4.4-11.0 [facility] White blood cell countOrdere d By: Roddy Reeves on 01-02-2025 White blood cell count 25-50 SEEN /hpf 0-5 [facility] Urine Cultureon 01-01-2025 URC #1 Below infection level. GPC Poss Enterococcus sp Erie Count 1000-10,000 Mixed Gram Positive Organisms Mixed Gram Positive Organisms MIXC Mixed contaminants. Submit a new specimen if indicated. Normal [facility] Comment on above: Performed By: #### M 100.2200 ####[facility] [address] [place], [address] 12 Lead EKGon 12-30-2024 12 Lead EKG Normal [facility] Absolute lymphocyte countOrd ered By: Mina Blood on 12-30-2024 Lymphocytes Auto (Unsp spec) [#/Vol] 1.31 10*3/uL 0.83-4.51 [facility] Anion gap in Serum or Plasma Ordered By: Mina Blood on 12-30-2024 Anion gap [Moles/Vol] 15 mmol/L 5-15 [facility] Automated lymphocyte count a s percentage of total leukocytesOrdered By: Mina Blood on 12-30-2024 Lymphocytes/100 WBC Auto (Unsp spec) 14.0 % Low 19-41 [facility] BUN/creatinine ratioOrdered By: Mina Blood on 12-30-2024 Urea nitrogen/Creatinine [Mass ratio] 14.1 mg/mg 10- [facility] Basic Metabolic Profile (BMP )on 12-30-2024 BUN/CRE 14.1 RATIO Normal - [facility] Comment on above: Performed By: #### L 500.2500, L501.5200, L501.4021, L100.0100 ####[facility] [address] [place], [address] Calcium [Mass/Vol] 9.1 mg/dL Normal 7.6-11.0 [facility] Comment on above: Performed By: #### L 500.2500, L501.5200, L501.4021, L100.0100 ####[facility] [address] [place], [address] Chloride [Moles/Vol] 91 mmol/L Low 98-108 [facility] Comment on above: Performed By: #### L 500.2500, L501.5200, L501.4021, L100.0100 ####[facility] [address] [place], [address] CO2 [Moles/Vol] 22.1 mmol/L Normal 21.0-32.0 [facility] Comment on above: Performed By: #### L 500.2500, L501.5200, L501.4021, L100.0100 ####[facility] [address] [place], [address] Creatinine [Mass/Vol] 2.05 mg/dL High 0.70-1.20 [facility] Comment on above: Performed By: #### L 500.2500, L501.5200, L501.4021, L100.0100 ####[facility] [address] [place], [address] ECRCL 42.97 ml/min Low 50-250 [facility] Comment on above: Performed By: #### L 500.2500, L501.5200, L501.4021, L100.0100 ####[facility] [address] [place], [address] GAP 15 Normal 5-15 [facility] Comment on above: Performed By: #### L 500.2500, L501.5200, L501.4021, L100.0100 ####[facility] [address] [place], [address] GFR/1.73 sq M.predicted among non-blacks MDRD (S/P/Bld) [Vol rate/Area] 37 mL/min/{1.73_m2} Low >60 [facility] Comment on above: Result Comment: mL/m in/1.73m2 CKD-EPI Creatinine Equation (2020) Performed By: #### L 500.2500, L501.5200, L501.4021, L100.0100 ####[facility] [address] [place], [address] Glucose [Mass/Vol] 608 mg/dL Invalid Interpretation Code 70-99 [facility] Comment on above: Result Comment: Crit ical Result(s) Called at:0218 by: NOREEN MENDOZA TO JASON ??Results read back by same. Performed By: #### L 500.2500, L501.5200, L501.4021, L100.0100 ####[facility] [address] [place], [address] Potassium [Moles/Vol] 3.2 mmol/L Low 3.3-5.1 [facility] Comment on above: Performed By: #### L 500.2500, L501.5200, L501.4021, L100.0100 ####[facility] [address] [place], [address] Sodium [Moles/Vol] 128 mmol/L Low 133-145 [facility] Comment on above: Performed By: #### L 500.2500, L501.5200, L501.4021, L100.0100 ####[facility] [address] [place], [address] Urea nitrogen [Mass/Vol] 29 mg/dL High 4-19 [facility] Comment on above: Performed By: #### L 500.2500, L501.5200, L501.4021, L100.0100 ####[facility] [address] [place], [address] Basophil percentageOrdered B y: Mina Blood on 12-30-2024 Basophils/100 WBC (Bld) 0.4 % 0-1 [facility] Bedside Glucoseon 12-30-2024 FINGERSTICK GLU 453 mg/dL Invalid Interpretation Code 74-106 [facility] Comment on above: Result Comment: BRISA MOROCHO OF PATIENT CARE PER NURSING PROTOCOL Performed By: #### L 501.080 ####[facility] [address] [place], [address] Bilirubin Test strip Ql (U)O rdered By: Mina Blood on 12-30-2024 Bilirubin Ql (U) Negative Negative [facility] CBC W/Diff, Automatedon 12-03 Absolute Lymph 1.31 X10 3/uL Normal 0.83-4.51 [facility] Comment on above: Performed By: #### L 500.2500, L501.5200, L501.4021, L100.0100 ####[facility] [address] [place], [address] Absolute Neut 6.5 X10 3/uL Normal 2.0-7.7 [facility] Comment on above: Performed By: #### L 500.2500, L501.5200, L501.4021, L100.0100 ####[facility] [address] [place], [address] Basophils/100 WBC (Bld) 0.4 % Normal 0-1 [facility] Comment on above: Performed By: #### L 500.2500, L501.5200, L501.4021, L100.0100 ####[facility] [address] [place], [address] Eosinophils/100 WBC (Bld) 6.2 % High 0-5 [facility] Comment on above: Performed By: #### L 500.2500, L501.5200, L501.4021, L100.0100 ####[facility] [address] [place], [address] Erythrocyte distribution width (RBC) [Ratio] 16.1 % High 11.6-14.6 [facility] Comment on above: Performed By: #### L 500.2500, L501.5200, L501.4021, L100.0100 ####[facility] [address] [place], [address] Hematocrit (Bld) [Volume fraction] 25.8 % Low 40-54 [facility] Comment on above: Performed By: #### L 500.2500, L501.5200, L501.4021, L100.0100 ####[facility] [address] [place], [address] Hemoglobin (Bld) [Mass/Vol] 8.7 g/dL Low 13.0-16.5 [facility] Comment on above: Performed By: #### L 500.2500, L501.5200, L501.4021, L100.0100 ####[facility] [address] [place], [address] IG% 0.600 Normal 0.0-0.9 [facility] Comment on above: Result Comment: IG% - Immature Granulocytes (promyelocytes, myelocytes andmetamyelocytes) > 1% indicates that a LEFT SHIFT is Present. Performed By: #### L 500.2500, L501.5200, L501.4021, L100.0100 ####[facility] [address] [place], [address] Lymphocytes/100 WBC (Bld) 14.0 % Low 19-41 [facility] Comment on above: Performed By: #### L 500.2500, L501.5200, L501.4021, L100.0100 ####[facility] [address] [place], [address] MCH (RBC) [Entitic mass] 29.7 pg Normal 27.0-32.0 [facility] Comment on above: Performed By: #### L 500.2500, L501.5200, L501.4021, L100.0100 ####[facility] [address] [place], [address] MCHC (RBC) [Mass/Vol] 33.7 g/dL Normal 32-36 [facility] Comment on above: Performed By: #### L 500.2500, L501.5200, L501.4021, L100.0100 ####[facility] [address] [place], [address] MCV (RBC) [Entitic vol] 88.1 fL Normal 80-94 [facility] Comment on above: Performed By: #### L 500.2500, L501.5200, L501.4021, L100.0100 ####[facility] [address] [place], [address] Monocytes/100 WBC (Bld) 9.1 % Normal 0-10 [facility] Comment on above: Performed By: #### L 500.2500, L501.5200, L501.4021, L100.0100 ####[facility] [address] [place], [address] Neutrophils/100 WBC (Bld) 69.7 % Normal 47-70 [facility] Comment on above: Performed By: #### L 500.2500, L501.5200, L501.4021, L100.0100 ####[facility] [address] [place], [address] Nucleated RBC (Bld) [#/Vol] 0 10*3/uL Normal 0-5 [facility] Comment on above: Performed By: #### L 500.2500, L501.5200, L501.4021, L100.0100 ####[facility] [address] [place], [address] Platelet mean volume (Bld) [Entitic vol] 13.4 fL High 6.2-12.0 [facility] Comment on above: Performed By: #### L 500.2500, L501.5200, L501.4021, L100.0100 ####[facility] [address] [place], [address] Platelets (Bld) [#/Vol] 131 10*3/uL Low 150-450 [facility] Comment on above: Performed By: #### L 500.2500, L501.5200, L501.4021, L100.0100 ####[facility] [address] [place], [address] RBC (Bld) [#/Vol] 2.93 10*6/uL Low 4.6-6.2 [facility] Comment on above: Performed By: #### L 500.2500, L501.5200, L501.4021, L100.0100 ####[facility] [address] [place], [address] RDW SD 50.9 fl High 35.1-43.9 [facility] Comment on above: Performed By: #### L 500.2500, L501.5200, L501.4021, L100.0100 ####[facility] [address] [place], [address] WBC (Bld) [#/Vol] 9.4 10*3/uL Normal 4.4-11.0 [facility] Comment on above: Performed By: #### L 500.2500, L501.5200, L501.4021, L100.0100 ####[facility] [address] [place], [address] Carbon dioxide, total [Moles /volume] in Central venous bloodOrdered By: iMna Blood on 12-30-2024 CO2 [Moles/Vol] 22.1 mmol/L 21.0-32.0 [facility] Chest PA and Lateralon 12-30 Chest PA and Lateral Normal [facility] Chloride assayOrdered By: Marcella Blood on 12-30-2024 Chloride [Moles/Vol] 91 mmol/L Low 98-108 [facility] Emergency Department Summary on 12-30-2024 Emergency Department Summary Normal [facility] Eosinophil percentageOrdered By: Mina Blood on 12-30-2024 Eosinophils/100 WBC (Bld) 6.2 % High 0-5 [facility] Erythrocyte distribution wid th ratioOrdered By: Mina Blood on 12-30-2024 Erythrocyte distribution width (RBC) [Ratio] 16.1 % High 11.6-14.6 [facility] Erythrocyte distribution wid th standard deviationOrdered By: Mina Blood on 12-30-2024 Erythrocyte distribution width (RBC) [Ratio] 50.9 fl High 35.1-43.9 [facility] Glomerular filtration rate ( GFR) estimation/1.73 sq m using serum, plasma, or whole bOrdered By: Mina Blood on 12-30-2024 GFR/1.73 sq M.predicted among non-blacks MDRD (S/P/Bld) [Vol rate/Area] 37 mL/min/{1.73_m2} Low >60 [facility] de[facility]dered By: Mina Blood on 12-30-2024 Glucose [Mass/Vol] 453 mg/dL High 74-106 [facility] Hematocrit Auto (Bld) [Volum e fraction]Ordered By: Mina Blood on 12-30-2024 Hematocrit (Bld) [Volume fraction] 25.8 % Low 40-54 [facility] Hemoglobin measurementOrdere d By: Mina Blood on 12-30-2024 Hemoglobin (Bld) [Mass/Vol] 8.7 g/dL Low 13.0-16.5 [facility] Immature granulocytes/100 WB C Auto (Bld)Ordered By: Mina Blood on 12-30-2024 Immature granulocytes/100 WBC (Bld) 0.600 % 0.0-0.9 [facility] Ketones Test strip Ql (U)Ord ered By: Mina Blood on 12-30-2024 Ketones Ql (U) Negative Negative [facility] L499.0042on 12-30-2024 Trop T High Sen 20 ng/L Normal <=22 [facility] Comment on above: Performed By: #### L 499.0042 ####[facility] [address] [facility] [place], [address] L501.4021on 12-30-2024 Trop T High Sen 19 ng/L Normal <=22 [facility] Comment on above: Performed By: #### L 500.2500, L501.5200, L501.4021, L100.0100 ####[facility] [address] [place], [address] MCV (mean corpuscular volume ) determinationOrdered By: Mina Blood on 12-30-2024 MCV (RBC) [Entitic vol] 88.1 fL 80-94 [facility] Magnesiumon 12-30-2024 Magnesium [Mass/Vol] 1.3 mg/dL Low 1.5-2.2 [facility] Comment on above: Performed By: #### L 500.2500, L501.5200, L501.4021, L100.0100 ####[facility] [address] [place], [address] Magnesium measurement (mass/ volume)Ordered By: Mina Blood on 12-30-2024 Magnesium (Unsp spec) [Mass/Vol] 1.3 mg/dL Low 1.5-2.2 [facility] Mean corpuscular hemoglobin (MCH) determinationOrdered By: Mina Blood on 12-30-2024 MCH (RBC) [Entitic mass] 29.7 pg 27.0-32.0 [facility] Monocyte percentageOrdered B y: Mina Blood on 12-30-2024 Monocytes/100 WBC (Bld) 9.1 % 0-10 [facility] Mucus LM Ql (Urine sed)Order ed By: Mina Blood on 12-30-2024 Mucus Ql (Urine sed) 0 SEEN /hpf [facility] Neutrophil percentageOrdered By: Mina Blood on 12-30-2024 Neutrophils/100 WBC (Bld) 69.7 % 47-70 [facility] Nitrite Test strip Ql (U)Ord ered By: Mina Blood on 12-30-2024 Nitrite Ql (U) Negative Negative [facility] Platelet countOrdered By: Marcella Blood on 12-30-2024 Platelets (Bld) [#/Vol] 131 10*3/uL Low 150-450 [facility] Potassium measurement (mass/ volume)Ordered By: Mina Blood on 12-30-2024 Potassium (Unsp spec) [Mass/Vol] 3.2 mmol/L Low 3.3-5.1 [facility] Protein Test strip Ql (U)Ord ered By: Mina Blood on 12-30-2024 Protein Ql (U) 100 mg/dl High Negative [facility] RBC Auto (Bld) [#/Vol]Ordere d By: Mina Blood on 12-30-2024 RBC (Bld) [#/Vol] 2.93 10*6/uL Low 4.6-6.2 [facility] Serum creatinine measurement (mass/volume)Ordered By: Mina Blood on 12-30-2024 Creatinine [Mass/Vol] 2.05 mg/dL High 0.70-1.20 [facility] Serum glucose measurement (m ass/volume)Ordered By: Mina Blood on 12-30-2024 Glucose [Mass/Vol] 608 mg/dL High 70-99 [facility] Serum or plasma calcium roosevelt urement (mass/volume)Ordered By: Mina Blood on 12-30-2024 Calcium [Mass/Vol] 9.1 mg/dL 7.6-11.0 [facility] Serum or plasma urea nitroge n measurement (mass/volume)Ordered By: Mina Blood on 12-30-2024 Urea nitrogen [Mass/Vol] 29 mg/dL High 4-19 [facility] Sodium levelOrdered By: Magen Blood on 12-30-2024 Sodium [Moles/Vol] 128 mmol/L Low 133-145 [facility] Squamous epithelial cells de tection in urine sediment by light microscopyOrdered By: Mina Blood on 12-30-2024 Epithelial cells.squamous LM Ql (Urine sed) 0-5 SEEN /hpf 0-5 [facility] Transitional cells detection in urine sediment by light microscopyOrdered By: Mina Blood on 12-30-2024 Transitional cells LM Ql (Urine sed) 0-5 SEEN /hpf 0-5 [facility] Troponin T.cardiac [Mass/vol ume] in Serum or Plasma by High sensitivity methodOrdered By: Mina Blood on 12-30-2024 Troponin T.cardiac High sensitivity method [Mass/Vol] 20 ng/L <22 [facility] Troponin T.cardiac High sensitivity method [Mass/Vol] 19 ng/L <22 [facility] Urinalysis, Completeon 12-30 BACTERIA 1+ /hpf Normal None Seen [facility] Comment on above: Order Comment: COLOR OF URINE MAY AFFECT DIPSTICK RESULTS.REAL ESTATE BRANCH MANAGER TO SPECIFY Performed By: #### L 400.0001 ####[facility] [address] [place], [address] EPI,SQUAMOUS 0-5 SEEN Normal 0-5 [facility] Comment on above: Order Comment: COLOR OF URINE MAY AFFECT DIPSTICK RESULTS.REAL ESTATE BRANCH MANAGER TO SPECIFY Performed By: #### L 400.0001 ####[facility] [address] [place], [address] EPI,TRANSITION 0-5 SEEN Normal 0-5 [facility] Comment on above: Order Comment: COLOR OF URINE MAY AFFECT DIPSTICK RESULTS.REAL ESTATE BRANCH MANAGER TO SPECIFY Performed By: #### L 400.0001 ####[facility] [address] [place], [address] RBC > 100 SEEN Normal 0-5 [facility] Comment on above: Order Comment: COLOR OF URINE MAY AFFECT DIPSTICK RESULTS.REAL ESTATE BRANCH MANAGER TO SPECIFY Performed By: #### L 400.0001 ####[facility] [address] [place], [address] WBC >100 SEEN Normal 0-5 [facility] Comment on above: Order Comment: COLOR OF URINE MAY AFFECT DIPSTICK RESULTS.REAL ESTATE BRANCH MANAGER TO SPECIFY Performed By: #### L 400.0001 ####[facility] [address] [place], [address] Mucus Ql (Urine sed) 0 SEEN Normal [facility] Comment on above: Order Comment: COLOR OF URINE MAY AFFECT DIPSTICK RESULTS.REAL ESTATE BRANCH MANAGER TO SPECIFY Performed By: #### L 400.0001 ####[facility] [address] [place], [address] Urine clarityOrdered By: Ever Blood on 12-30-2024 Clarity (U) Cloudy Clear [facility] Urine color determinationOrd ered By: Mina Blood on 12-30-2024 Color (U) Willow Yellow [facility] Urine cultureOrdered By: Ever Blood on 12-30-2024 Bacteria identified Cx Nom (U) GPC Poss Enterococcus sp Abnormal [facility] Bacteria identified Cx Nom (U) Positive Abnormal [facility] Urine glucose detectionOrder ed By: Mina Blood on 12-30-2024 Glucose Ql (U) 1000 mg/dl High Normal [facility] Urine leukocyte esterase det ection by dipstickOrdered By: Mina Blood on 12-30-2024 Leukocyte esterase Test strip Ql (U) 500 /ul High Negative [facility] Urine pHOrdered By: Mina Marte ndephillip on 12-30-2024 pH (U) 6.5 [pH] 5.0 - 8.0 [facility] Urine sediment bacteria coun t by microscopy (number/high power field)Ordered By: Mina Blood on 12-30-2024 Bacteria LM.HPF (Urine sed) [#/Area] 1 /[HPF] None Seen [facility] Urine specific gravity measu rementOrdered By: Mina Blood on 12-30-2024 Specific gravity (U) [Rel density] 1.010 1.002-1.030 [facility] Urine urobilinogen measureme ntOrdered By: Mina Blood on 12-30-2024 Urobilinogen Ql (U) Normal mg/dl Normal [facility] White blood cell (WBC) count Ordered By: Mina Blood on 12-30-2024 WBC (Bld) [#/Vol] 9.4 10*3/uL 4.4-11.0 [facility] White blood cell countOrdere d By: Mnia Blood on 12-30-2024 White blood cell count >100 SEEN /hpf 0-5 [facility] Urine Cultureon 12-29-2024 URC Normal [facility] Comment on above: Performed By: #### M 100.2200 ####[facility] [address] [place], [place], [id number] Abdomen/Pelvis without Conto n 12-26-2024 Abdomen/Pelvis without Cont Normal [facility] Absolute lymphocyte countOrd ered By: Boone Carvajal on 12-26-2024 Lymphocytes Auto (Unsp spec) [#/Vol] 1.69 10*3/uL 0.83-4.51 [facility] Activated partial thrombopla stin time (aPTT) in platelet poor plasma by coagulation aOrdered By: Boone Carvajal on 12-26-2024 aPTT Coag (PPP) [Time] 36.3 s High 24.1-36.2 [facility] Ammoniaon 12-26-2024 Ammonia (P) [Moles/Vol] 114.0 umol/L High 16-60 [facility] Comment on above: Result Comment: Hemo lysis present, Results??could be affected.?? Performed By: #### L 500.4050, L300.4310, L503.5510, L100.0100, L501.2450, L300.3900, L501.6901 ####[facility] [address] [place], [place], [id number] Anion gap in Serum or Plasma Ordered By: Boone Carvajal on 12-26-2024 Anion gap [Moles/Vol] 14 mmol/L 5-15 [facility] Automated lymphocyte count a s percentage of total leukocytesOrdered By: Boone Carvajal on 12-26-2024 Lymphocytes/100 WBC Auto (Unsp spec) 15.3 % Low 19-41 [facility] BUN/creatinine ratioOrdered By: Boone Carvajal on 12-26-2024 Urea nitrogen/Creatinine [Mass ratio] 10.3 mg/mg 10-20 [facility] Basophil percentageOrdered B y: Boone Carvajal on 12-26-2024 Basophils/100 WBC (Bld) 0.5 % 0-1 [facility] Beta-Hydroxbytyrateon 2024 BETA-HYDROXYBUT 0.1 mmol/L Normal 0.0-0.3 [facility] Comment on above: Performed By: #### L 500.4050, L300.4310, L503.5510, L100.0100, L501.2450, L300.3900, L501.6901 ####[facility] [address] [place], [place], [id number] Beta-hydroxybutyrateOrdered By: Boone Carvajal on 12-26-2024 Beta hydroxybutyrate [Mass/Vol] 0.1 mmol/L 0.0-0.3 [facility] Bilirubin Test strip Ql (U)O rdered By: Boone Carvajal on 12-26-2024 Bilirubin Ql (U) Negative Negative [facility] Bilirubin, totalOrdered By: Boone Carvajal on 12-26-2024 Bilirubin [Mass/Vol] 1.04 mg/dL 0.00-1.30 [facility] CBC W/Diff, Automatedon 05-2 -2024 Absolute Lymph 1.69 X10 3/uL Normal 0.83-4.51 [facility] Comment on above: Performed By: #### L 500.4050, L300.4310, L503.5510, L100.0100, L501.2450, L300.3900, L501.6901 ####[facility] [address] [place], [address] Absolute Neut 7.8 X10 3/uL High 2.0-7.7 [facility] Comment on above: Performed By: #### L 500.4050, L300.4310, L503.5510, L100.0100, L501.2450, L300.3900, L501.6901 ####[facility] [address] [place], [address] Basophils/100 WBC (Bld) 0.5 % Normal 0-1 [facility] Comment on above: Performed By: #### L 500.4050, L300.4310, L503.5510, L100.0100, L501.2450, L300.3900, L501.6901 ####[facility] [address] [place], [address] Eosinophils/100 WBC (Bld) 5.8 % High 0-5 [facility] Comment on above: Performed By: #### L 500.4050, L300.4310, L503.5510, L100.0100, L501.2450, L300.3900, L501.6901 ####[facility] [address] [place], [address] Erythrocyte distribution width (RBC) [Ratio] 16.3 % High 11.6-14.6 [facility] Comment on above: Performed By: #### L 500.4050, L300.4310, L503.5510, L100.0100, L501.2450, L300.3900, L501.6901 ####[facility] [address] [place], [address] Hematocrit (Bld) [Volume fraction] 29.6 % Low 40-54 [facility] Comment on above: Performed By: #### L 500.4050, L300.4310, L503.5510, L100.0100, L501.2450, L300.3900, L501.6901 ####[facility] [address] [place], [address] Hemoglobin (Bld) [Mass/Vol] 9.6 g/dL Low 13.0-16.5 [facility] Comment on above: Performed By: #### L 500.4050, L300.4310, L503.5510, L100.0100, L501.2450, L300.3900, L501.6901 ####[facility] [address] [place], [address] IG% 0.500 Normal 0.0-0.9 [facility] Comment on above: Result Comment: IG% - Immature Granulocytes (promyelocytes, myelocytes andmetamyelocytes) > 1% indicates that a LEFT SHIFT is Present. Performed By: #### L 500.4050, L300.4310, L503.5510, L100.0100, L501.2450, L300.3900, L501.6901 ####[facility] [address] [place], [address] Lymphocytes/100 WBC (Bld) 15.3 % Low 19-41 [facility] Comment on above: Performed By: #### L 500.4050, L300.4310, L503.5510, L100.0100, L501.2450, L300.3900, L501.6901 ####[facility] [address] [place], [address] MCH (RBC) [Entitic mass] 29.4 pg Normal 27.0-32.0 [facility] Comment on above: Performed By: #### L 500.4050, L300.4310, L503.5510, L100.0100, L501.2450, L300.3900, L501.6901 ####[facility] [address] [place], [address] MCHC (RBC) [Mass/Vol] 32.4 g/dL Normal 32-36 [facility] Comment on above: Performed By: #### L 500.4050, L300.4310, L503.5510, L100.0100, L501.2450, L300.3900, L501.6901 ####[facility] [address] [place], [address] MCV (RBC) [Entitic vol] 90.8 fL Normal 80-94 [facility] Comment on above: Performed By: #### L 500.4050, L300.4310, L503.5510, L100.0100, L501.2450, L300.3900, L501.6901 ####[facility] [address] [place], [address] Monocytes/100 WBC (Bld) 7.4 % Normal 0-10 [facility] Comment on above: Performed By: #### L 500.4050, L300.4310, L503.5510, L100.0100, L501.2450, L300.3900, L501.6901 ####[facility] [address] [place], [address] Neutrophils/100 WBC (Bld) 70.5 % High 47-70 [facility] Comment on above: Performed By: #### L 500.4050, L300.4310, L503.5510, L100.0100, L501.2450, L300.3900, L501.6901 ####[facility] [address] [place], [address] Nucleated RBC (Bld) [#/Vol] 0 10*3/uL Normal 0-5 [facility] Comment on above: Performed By: #### L 500.4050, L300.4310, L503.5510, L100.0100, L501.2450, L300.3900, L501.6901 ####[facility] [address] [place], [address] Platelet mean volume (Bld) [Entitic vol] 12.5 fL High 6.2-12.0 [facility] Comment on above: Performed By: #### L 500.4050, L300.4310, L503.5510, L100.0100, L501.2450, L300.3900, L501.6901 ####[facility] [address] [place], [address] Platelets (Bld) [#/Vol] 139 10*3/uL Low 150-450 [facility] Comment on above: Performed By: #### L 500.4050, L300.4310, L503.5510, L100.0100, L501.2450, L300.3900, L501.6901 ####[facility] [address] [place], [address] RBC (Bld) [#/Vol] 3.26 10*6/uL Low 4.6-6.2 [facility] Comment on above: Performed By: #### L 500.4050, L300.4310, L503.5510, L100.0100, L501.2450, L300.3900, L501.6901 ####[facility] [address] [place], [address] RDW SD 54.4 fl High 35.1-43.9 [facility] Comment on above: Performed By: #### L 500.4050, L300.4310, L503.5510, L100.0100, L501.2450, L300.3900, L501.6901 ####[facility] [address] [place], [address] WBC (Bld) [#/Vol] 11.0 10*3/uL Normal 4.4-11.0 [facility] Comment on above: Performed By: #### L 500.4050, L300.4310, L503.5510, L100.0100, L501.2450, L300.3900, L501.6901 ####[facility] [address] [place], [address] Carbon dioxide, total [Moles /volume] in Central venous bloodOrdered By: Boone Carvajal on 12-26-2024 CO2 [Moles/Vol] 20.4 mmol/L Low 21.0-32.0 [facility] Chloride assayOrdered By: Niko Carvajal on 12-26-2024 Chloride [Moles/Vol] 100 mmol/L 98-108 [facility] Comprehensive Metabolic Prof ilon 12-26-2024 Albumin [Mass/Vol] 2.8 g/dL Low 3.5-5.0 [facility] Comment on above: Performed By: #### L 500.4050, L300.4310, L503.5510, L100.0100, L501.2450, L300.3900, L501.6901 ####[facility] [address] [place], [address] Albumin/Globulin [Mass ratio] 0.8 {ratio} Low 0.9-2.4 [facility] Comment on above: Performed By: #### L 500.4050, L300.4310, L503.5510, L100.0100, L501.2450, L300.3900, L501.6901 ####[facility] [address] [place], [address] ALK PHOS 207 U/L High 40-129 [facility] Comment on above: Performed By: #### L 500.4050, L300.4310, L503.5510, L100.0100, L501.2450, L300.3900, L501.6901 ####[facility] [address] [place], [address] ALT [Catalytic activity/Vol] 27 U/L Normal <=46 [facility] Comment on above: Performed By: #### L 500.4050, L300.4310, L503.5510, L100.0100, L501.2450, L300.3900, L501.6901 ####[facility] [address] [place], [address] AST [Catalytic activity/Vol] 58 U/L High <=37 [facility] Comment on above: Result Comment: Hemo lysis present, Results??could be affected.?? Performed By: #### L 500.4050, L300.4310, L503.5510, L100.0100, L501.2450, L300.3900, L501.6901 ####[facility] [address] [place], [address] Bilirubin [Mass/Vol] 1.04 mg/dL Normal 0.00-1.30 [facility] Comment on above: Performed By: #### L 500.4050, L300.4310, L503.5510, L100.0100, L501.2450, L300.3900, L501.6901 ####[facility] [address] [place], [address] BUN/CRE 10.3 RATIO Normal 10-20 [facility] Comment on above: Performed By: #### L 500.4050, L300.4310, L503.5510, L100.0100, L501.2450, L300.3900, L501.6901 ####[facility] [address] [place], [address] Calcium [Mass/Vol] 8.9 mg/dL Normal 7.6-11.0 [facility] Comment on above: Performed By: #### L 500.4050, L300.4310, L503.5510, L100.0100, L501.2450, L300.3900, L501.6901 ####[facility] [address] [place], [address] Chloride [Moles/Vol] 100 mmol/L Normal 98-108 [facility] Comment on above: Performed By: #### L 500.4050, L300.4310, L503.5510, L100.0100, L501.2450, L300.3900, L501.6901 ####[facility] [address] [place], [address] CO2 [Moles/Vol] 20.4 mmol/L Low 21.0-32.0 [facility] Comment on above: Performed By: #### L 500.4050, L300.4310, L503.5510, L100.0100, L501.2450, L300.3900, L501.6901 ####[facility] [address] [place], [address] Creatinine [Mass/Vol] 2.42 mg/dL High 0.70-1.20 [facility] Comment on above: Performed By: #### L 500.4050, L300.4310, L503.5510, L100.0100, L501.2450, L300.3900, L501.6901 ####[facility] [address] [place], [address] ECRCL 37.17 ml/min Low 50-250 [facility] Comment on above: Performed By: #### L 500.4050, L300.4310, L503.5510, L100.0100, L501.2450, L300.3900, L501.6901 ####[facility] [address] [place], [address] GAP 14 Normal 5-15 [facility] Comment on above: Performed By: #### L 500.4050, L300.4310, L503.5510, L100.0100, L501.2450, L300.3900, L501.6901 ####[facility] [address] [place], [address] GFR/1.73 sq M.predicted among non-blacks MDRD (S/P/Bld) [Vol rate/Area] 30 mL/min/{1.73_m2} Low >60 [facility] Comment on above: Result Comment: mL/m in/1.73m2 CKD-EPI Creatinine Equation (2020) Performed By: #### L 500.4050, L300.4310, L503.5510, L100.0100, L501.2450, L300.3900, L501.6901 ####[facility] [address] [place], [address] Globulin (S) [Mass/Vol] 3.5 g/dL Normal 2.2-4.2 [facility] Comment on above: Performed By: #### L 500.4050, L300.4310, L503.5510, L100.0100, L501.2450, L300.3900, L501.6901 ####[facility] [address] [place], [address] Glucose [Mass/Vol] 386 mg/dL High 70-99 [facility] Comment on above: Performed By: #### L 500.4050, L300.4310, L503.5510, L100.0100, L501.2450, L300.3900, L501.6901 ####[facility] [address] [place], [address] Potassium [Moles/Vol] 3.5 mmol/L Normal 3.3-5.1 [facility] Comment on above: Result Comment: Hemo lysis present, Results??could be affected.?? Performed By: #### L 500.4050, L300.4310, L503.5510, L100.0100, L501.2450, L300.3900, L501.6901 ####[facility] [address] [place], [address] Sodium [Moles/Vol] 135 mmol/L Normal 133-145 [facility] Comment on above: Performed By: #### L 500.4050, L300.4310, L503.5510, L100.0100, L501.2450, L300.3900, L501.6901 ####[facility] [address] [place], [address] T PROT 6.3 g/dL Normal 5.9-8.4 [facility] Comment on above: Performed By: #### L 500.4050, L300.4310, L503.5510, L100.0100, L501.2450, L300.3900, L501.6901 ####[facility] [address] [place], [address] Urea nitrogen [Mass/Vol] 25 mg/dL High 4-19 [facility] Comment on above: Performed By: #### L 500.4050, L300.4310, L503.5510, L100.0100, L501.2450, L300.3900, L501.6901 ####[facility] [address] [place], [address] Emergency Department Summary on 12-26-2024 Emergency Department Summary Normal [facility] Eosinophil percentageOrdered By: Boone Carvajal on 12-26-2024 Eosinophils/100 WBC (Bld) 5.8 % High 0-5 [facility] Erythrocyte distribution wid th ratioOrdered By: Boone Carvajal on 12-26-2024 Erythrocyte distribution width (RBC) [Ratio] 16.3 % High 11.6-14.6 [facility] Erythrocyte distribution wid th standard deviationOrdered By: Boone Carvajal on 12-26-2024 Erythrocyte distribution width (RBC) [Ratio] 54.4 fl High 35.1-43.9 [facility] Glomerular filtration rate ( GFR) estimation/1.73 sq m using serum, plasma, or whole bOrdered By: Boone Carvajal on 12-26-2024 GFR/1.73 sq M.predicted among non-blacks MDRD (S/P/Bld) [Vol rate/Area] 30 mL/min/{1.73_m2} Low >60 [facility] Hematocrit Auto (Bld) [Volum e fraction]Ordered By: Boone Carvajal on 12-26-2024 Hematocrit (Bld) [Volume fraction] 29.6 % Low 40-54 [facility] Hemoglobin measurementOrdere d By: Boone Cravajal on 12-26-2024 Hemoglobin (Bld) [Mass/Vol] 9.6 g/dL Low 13.0-16.5 [facility] Immature granulocytes/100 WB C Auto (Bld)Ordered By: Boone Carvajal on 12-26-2024 Immature granulocytes/100 WBC (Bld) 0.500 % 0.0-0.9 [facility] Ketones Test strip Ql (U)Ord ered By: Boone Carvajal on 12-26-2024 Ketones Ql (U) 5 mg/dl High Negative [facility] Lipaseon 12-26-2024 Lipase [Catalytic activity/Vol] 62 U/L Normal 13-75 [facility] Comment on above: Result Comment: Siddhartha bhat note:LIPASE revised reference range effective 22.New Lipase methodology. Expected to produce lower valuesthan the previous assay method.NEW Reference Range: 13 - 75 U/L Performed By: #### L 500.4050, L300.4310, L503.5510, L100.0100, L501.2450, L300.3900, L501.6901 ####[facility] [address] [place], [address] MCV (mean corpuscular volume ) determinationOrdered By: Boone Carvajal on 12-26-2024 MCV (RBC) [Entitic vol] 90.8 fL 80-94 [facility] Mean corpuscular hemoglobin (MCH) determinationOrdered By: Boone Carvajal on 12-26-2024 MCH (RBC) [Entitic mass] 29.4 pg 27.0-32.0 [facility] Monocyte percentageOrdered B y: Boone Carvajal on 12-26-2024 Monocytes/100 WBC (Bld) 7.4 % 0-10 [facility] Mucus LM Ql (Urine sed)Order ed By: Boone Carvajal on 12-26-2024 Mucus Ql (Urine sed) 0 SEEN /hpf [facility] Neutrophil percentageOrdered By: Boone Carvajal on 12-26-2024 Neutrophils/100 WBC (Bld) 70.5 % High 47-70 [facility] Nitrite Test strip Ql (U)Ord ered By: Boone Carvajal on 12-26-2024 Nitrite Ql (U) Negative Negative [facility] No Panel InformationOrdered By: Boone Carvajal on 12-26-2024 58 U/L High <38 [facility] Partial Thromboplast Timeon 12-26-2024 aPTT Coag (Bld) [Time] 36.3 s High 24.1-36.2 [facility] Comment on above: Performed By: #### L 500.4050, L300.4310, L503.5510, L100.0100, L501.2450, L300.3900, L501.6901 ####[facility] [address] [place], [address] Platelet countOrdered By: Niko Carvajal on 12-26-2024 Platelets (Bld) [#/Vol] 139 10*3/uL Low 150-450 [facility] Potassium measurement (mass/ volume)Ordered By: Boone Carvajal on 12-26-2024 Potassium (Unsp spec) [Mass/Vol] 3.5 mmol/L 3.3-5.1 [facility] Protein Test strip Ql (U)Ord ered By: Boone Carvajal on 12-26-2024 Protein Ql (U) 500 mg/dl High Negative [facility] Prothrombin Time w/INRon INR Coag (PPP) [Relative time] 1.5 {INR} Normal [facility] Comment on above: Performed By: #### L 500.4050, L300.4310, L503.5510, L100.0100, L501.2450, L300.3900, L501.6901 ####[facility] [address] [place], [place], [address] PT Coag (PPP) [Time] 18.5 s High 11.7-14.9 [facility] Comment on above: Performed By: #### L 500.4050, L300.4310, L503.5510, L100.0100, L501.2450, L300.3900, L501.6901 ####[facility] [address] [place], [place], [address] Prothrombin timeOrdered By: Boone Carvajal on 12-26-2024 PT Coag (PPP) [Time] 18.5 s High 11.7-14.9 [facility] RBC Auto (Bld) [#/Vol]Ordere d By: Boone Carvajal on 12-26-2024 RBC (Bld) [#/Vol] 3.26 10*6/uL Low 4.6-6.2 [facility] Serum creatinine measurement (mass/volume)Ordered By: Boone Carvajal on 12-26-2024 Creatinine [Mass/Vol] 2.42 mg/dL High 0.70-1.20 [facility] Serum globulin measurementOr dered By: Boone Carvajal on 12-26-2024 Globulin (S) [Mass/Vol] 3.5 g/dL 2.2-4.2 [facility] Serum glucose measurement (m ass/volume)Ordered By: Boone Carvajal on 12-26-2024 Glucose [Mass/Vol] 386 mg/dL High 70-99 [facility] Serum or plasma alanine thomas otransferase (ALT) measurementOrdered By: Boone Carvajal on 12-26-2024 ALT [Catalytic activity/Vol] 27 U/L <47 [facility] Serum or plasma albumin roosevelt urement (mass/volume)Ordered By: Boone Carvajal on 12-26-2024 Albumin [Mass/Vol] 2.8 g/dL Low 3.5-5.0 [facility] Serum or plasma albumin/glob ulin mass ratioOrdered By: Booen Carvajal on 12-26-2024 Albumin/Globulin [Mass ratio] 0.8 {ratio} Low 0.9-2.4 [facility] Serum or plasma alkaline kendrick sphatase measurementOrdered By: Boone Carvajal on 12-26-2024 ALP [Catalytic activity/Vol] 207 U/L High 40-129 [facility] Serum or plasma calcium roosevelt urement (mass/volume)Ordered By: Boone Carvajal on 12-26-2024 Calcium [Mass/Vol] 8.9 mg/dL 7.6-11.0 [facility] Serum or plasma urea nitroge n measurement (mass/volume)Ordered By: Boone Carvajal on 12-26-2024 Urea nitrogen [Mass/Vol] 25 mg/dL High 4-19 [facility] Sodium levelOrdered By: Boone Carvajal on 12-26-2024 Sodium [Moles/Vol] 135 mmol/L 133-145 [facility] Squamous epithelial cells de tection in urine sediment by light microscopyOrdered By: Boone Carvajal on 12-26-2024 Epithelial cells.squamous LM Ql (Urine sed) 0 SEEN /hpf 0-5 [facility] Total proteinOrdered By: Danita Carvajal on 12-26-2024 Protein [Mass/Vol] 6.3 g/dL 5.9-8.4 [facility] Urinalysis, Completeon 12-26 RBC 25-50 SEEN Normal 0-5 [facility] Comment on above: Order Comment: COLOR OF URINE MAY AFFECT DIPSTICK RESULTS.CLEAN CATCH Performed By: #### L 400.0001 ####[facility] [address] [place], [address] WBC 25-50 SEEN Normal 0-5 [facility] Comment on above: Order Comment: COLOR OF URINE MAY AFFECT DIPSTICK RESULTS.CLEAN CATCH Performed By: #### L 400.0001 ####[facility] [address] [place], [address] BACTERIA 0 SEEN Normal None Seen [facility] Comment on above: Order Comment: COLOR OF URINE MAY AFFECT DIPSTICK RESULTS.CLEAN CATCH Performed By: #### L 400.0001 ####[facility] [address] [place], [address] EPI,SQUAMOUS 0 SEEN Normal 0-5 [facility] Comment on above: Order Comment: COLOR OF URINE MAY AFFECT DIPSTICK RESULTS.CLEAN CATCH Performed By: #### L 400.0001 ####[facility] [address] [place], [address] Mucus Ql (Urine sed) 0 SEEN Normal [facility] Comment on above: Order Comment: COLOR OF URINE MAY AFFECT DIPSTICK RESULTS.CLEAN CATCH Performed By: #### L 400.0001 ####[facility] [address] 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 [facility] Urine glucose detectionOrder ed By: Boone Carvajal on 12-26-2024 Glucose Ql (U) Normal mg/dl Normal [facility] Urine leukocyte esterase det ection by dipstickOrdered By: Boone Carvajal on 12-26-2024 Leukocyte esterase Test strip Ql (U) 500 /ul High Negative [facility] Urine pHOrdered By: Boone romo on 12-26-2024 pH (U) 6.0 [pH] 5.0 - 8.0 [facility] Urine sediment bacteria coun t by microscopy (number/high power field)Ordered By: Boone Carvajal on 12-26-2024 Bacteria LM.HPF (Urine sed) [#/Area] 0 /[HPF] None Seen [facility] Urine specific gravity measu rementOrdered By: Boone Carvajal on 12-26-2024 Specific gravity (U) [Rel density] 1.015 1.002-1.030 [facility] Urine urobilinogen measureme ntOrdered By: Boone Carvajal on 12-26-2024 Urobilinogen Ql (U) Normal mg/dl Normal [facility] Venous blood ammonia measure mentOrdered By: Booneolamide Carvajal on 12-26-2024 Ammonia (P) [Moles/Vol] 114.0 umol/L High 16-60 [facility] White blood cell (WBC) count Ordered By: Boone Carvajal on 12-26-2024 WBC (Bld) [#/Vol] 11.0 10*3/uL 4.4-11.0 [facility] White blood cell countOrdere d By: Boone Carvajal on 12-26-2024 White blood cell count 25-50 SEEN /hpf 0-5 [facility] Abdomen Limitedon 12-15-2024 Abdomen Limited Normal [facility] L501.5101on 12-08-2024 GGTP 103 IU/L Abnormal 0-65 [facility] Comment on above: Result Comment: Perf ormed at: - [facility] [place] [id number] Director: Buck Ivy PhD, Phone: [phone] Performed By: #### L 493.7857, L269.8094, L576.9952, [id number] ####[facility] [address] [place], [address] Absolute lymphocyte countOrd ered By: Josy Elias on 12-07-2024 Lymphocytes Auto (Unsp spec) [#/Vol] 1.71 10*3/uL 0.83-4.51 [facility] Anion gap in Serum or Plasma Ordered By: Josy Elias on 12-07-2024 Anion gap [Moles/Vol] 12 mmol/L 5-15 [facility] Automated lymphocyte count a s percentage of total leukocytesOrdered By: Josy Elias on 12-07-2024 Lymphocytes/100 WBC Auto (Unsp spec) 18.4 % Low 19-41 [facility] BUN/creatinine ratioOrdered By: Josy Elias on 12-07-2024 Urea nitrogen/Creatinine [Mass ratio] 10.0 mg/mg 10-20 [facility] Basophil percentageOrdered B y: Josy Elias on 12-07-2024 Basophils/100 WBC (Bld) 0.6 % 0-1 [facility] Bilirubin, totalOrdered By: Josy Elias on 12-07-2024 Bilirubin [Mass/Vol] 1.21 mg/dL 0.00-1.30 [facility] CBC W/Diff, Automatedon PATH REV N/A Normal [facility] Comment on above: Result Comment: PATH REVIEW DONE WITH IN THE PAST 30 DAYS AMENDED REPORT 12/07/24 0791 PATH REV previously reported as: December Performed By: #### L 100.0100, L500.4050 ####[facility] [address] [place], [address] Absolute Lymph 1.71 X10 3/uL Normal 0.83-4.51 [facility] Comment on above: Performed By: #### L 501.9985, L501.5101, L500.4050, L100.0100 ####[facility] [address] [place], [address] Absolute Neut 5.9 X10 3/uL Normal 2.0-7.7 [facility] Comment on above: Performed By: #### L 501.9985, L501.5101, L500.4050, L100.0100 ####[facility] [address] [place], [address] Basophils/100 WBC (Bld) 0.6 % Normal 0-1 [facility] Comment on above: Performed By: #### L 501.9985, L501.5101, L500.4050, L100.0100 ####[facility] [address] [place], [address] Eosinophils/100 WBC (Bld) 5.1 % High 0-5 [facility] Comment on above: Performed By: #### L 501.9985, L501.5101, L500.4050, L100.0100 ####[facility] [address] [place], [address] Erythrocyte distribution width (RBC) [Ratio] 16.9 % High 11.6-14.6 [facility] Comment on above: Performed By: #### L 501.9985, L501.5101, L500.4050, L100.0100 ####[facility] [address] [place], [address] Hematocrit (Bld) [Volume fraction] 26.2 % Low 40-54 [facility] Comment on above: Performed By: #### L 501.9985, L501.5101, L500.4050, L100.0100 ####[facility] [address] [place], [address] Hemoglobin (Bld) [Mass/Vol] 8.5 g/dL Low 13.0-16.5 [facility] Comment on above: Performed By: #### L 501.9985, L501.5101, L500.4050, L100.0100 ####[facility] [address] [place], [address] IG% 0.300 Normal 0.0-0.9 [facility] Comment on above: Result Comment: IG% - Immature Granulocytes (promyelocytes, myelocytes andmetamyelocytes) > 1% indicates that a LEFT SHIFT is Present. Performed By: #### L 501.9985, L501.5101, L500.4050, L100.0100 ####[facility] [address] [place], [address] Lymphocytes/100 WBC (Bld) 18.4 % Low 19-41 [facility] Comment on above: Performed By: #### L 501.9985, L501.5101, L500.4050, L100.0100 ####[facility] [address] [place], [address] MCH (RBC) [Entitic mass] 30.2 pg Normal 27.0-32.0 [facility] Comment on above: Performed By: #### L 501.9985, L501.5101, L500.4050, L100.0100 ####[facility] [address] [place], [address] MCHC (RBC) [Mass/Vol] 32.4 g/dL Normal 32-36 [facility] Comment on above: Performed By: #### L 501.9985, L501.5101, L500.4050, L100.0100 ####[facility] [address] [place], [address] MCV (RBC) [Entitic vol] 93.2 fL Normal 80-94 [facility] Comment on above: Performed By: #### L 501.9985, L501.5101, L500.4050, L100.0100 ####[facility] [address] [place], [address] Monocytes/100 WBC (Bld) 12.1 % High 0-10 [facility] Comment on above: Performed By: #### L 501.9985, L501.5101, L500.4050, L100.0100 ####[facility] [address] [place], [address] Neutrophils/100 WBC (Bld) 63.5 % Normal 47-70 [facility] Comment on above: Performed By: #### L 501.9985, L501.5101, L500.4050, L100.0100 ####[facility] [address] [place], [address] Nucleated RBC (Bld) [#/Vol] 0 10*3/uL Normal 0-5 [facility] Comment on above: Performed By: #### L 501.9985, L501.5101, L500.4050, L100.0100 ####[facility] [address] [place], [address] Platelet mean volume (Bld) [Entitic vol] 12.3 fL High 6.2-12.0 [facility] Comment on above: Performed By: #### L 501.9985, L501.5101, L500.4050, L100.0100 ####[facility] [address] [place], [address] Platelets (Bld) [#/Vol] 145 10*3/uL Low 150-450 [facility] Comment on above: Performed By: #### L 501.9985, L501.5101, L500.4050, L100.0100 ####[facility] [address] [place], [address] RBC (Bld) [#/Vol] 2.81 10*6/uL Low 4.6-6.2 [facility] Comment on above: Performed By: #### L 501.9985, L501.5101, L500.4050, L100.0100 ####[facility] [address] [place], [address] RDW SD 57.4 fl High 35.1-43.9 [facility] Comment on above: Performed By: #### L 501.9985, L501.5101, L500.4050, L100.0100 ####[facility] [address] [place], [address] WBC (Bld) [#/Vol] 9.3 10*3/uL Normal 4.4-11.0 [facility] Comment on above: Performed By: #### L 501.9985, L501.5101, L500.4050, L100.0100 ####[facility] [address] [place], [address] CNPTOUTREACHon 12-07-2024 CNPTOUTREACH Normal [facility] Carbon dioxide, total [Moles /volume] in Central venous bloodOrdered By: Josy Elias on 12-07-2024 CO2 [Moles/Vol] 20.0 mmol/L Low 21.0-32.0 [facility] Chloride assayOrdered By: Monica Elias on 12-07-2024 Chloride [Moles/Vol] 103 mmol/L 98-108 [facility] Comprehensive Metabolic Prof ilon 12-07-2024 Albumin [Mass/Vol] 2.6 g/dL Low 3.5-5.0 [facility] Comment on above: Performed By: #### L 501.9985, L501.5101, L500.4050, L100.0100 ####[facility] [address] [place], [address] Albumin/Globulin [Mass ratio] 0.9 {ratio} Normal 0.9-2.4 [facility] Comment on above: Performed By: #### L 501.9985, L501.5101, L500.4050, L100.0100 ####[facility] [address] [place], [address] ALK PHOS 241 U/L High 40-129 [facility] Comment on above: Performed By: #### L 501.9985, L501.5101, L500.4050, L100.0100 ####[facility] [address] [place], [address] ALT [Catalytic activity/Vol] 24 U/L Normal <=46 [facility] Comment on above: Performed By: #### L 501.9985, L501.5101, L500.4050, L100.0100 ####[facility] [address] [place], [address] AST [Catalytic activity/Vol] 37 U/L Normal <=37 [facility] Comment on above: Performed By: #### L 501.9985, L501.5101, L500.4050, L100.0100 ####[facility] [address] [place], [address] Bilirubin [Mass/Vol] 1.21 mg/dL Normal 0.00-1.30 [facility] Comment on above: Performed By: #### L 501.9985, L501.5101, L500.4050, L100.0100 ####[facility] [address] [place], [address] BUN/CRE 10.0 RATIO Normal 10-20 [facility] Comment on above: Performed By: #### L 501.9985, L501.5101, L500.4050, L100.0100 ####[facility] [address] [place], [address] Calcium [Mass/Vol] 8.2 mg/dL Normal 7.6-11.0 [facility] Comment on above: Performed By: #### L 501.9985, L501.5101, L500.4050, L100.0100 ####[facility] [address] [place], [address] Chloride [Moles/Vol] 103 mmol/L Normal 98-108 [facility] Comment on above: Performed By: #### L 501.9985, L501.5101, L500.4050, L100.0100 ####[facility] [address] [place], [address] CO2 [Moles/Vol] 20.0 mmol/L Low 21.0-32.0 [facility] Comment on above: Performed By: #### L 501.9985, L501.5101, L500.4050, L100.0100 ####[facility] [address] [place], [address] Creatinine [Mass/Vol] 1.78 mg/dL High 0.70-1.20 [facility] Comment on above: Performed By: #### L 501.9985, L501.5101, L500.4050, L100.0100 ####[facility] [address] [place], [address] GAP 12 Normal 5-15 [facility] Comment on above: Performed By: #### L 501.9985, L501.5101, L500.4050, L100.0100 ####[facility] [address] [place], [address] GFR/1.73 sq M.predicted among non-blacks MDRD (S/P/Bld) [Vol rate/Area] 44 mL/min/{1.73_m2} Low >60 [facility] Comment on above: Result Comment: mL/m in/1.73m2 CKD-EPI Creatinine Equation (2020) Performed By: #### L 501.9985, L501.5101, L500.4050, L100.0100 ####[facility] [address] [place], [address] Globulin (S) [Mass/Vol] 2.9 g/dL Normal 2.2-4.2 [facility] Comment on above: Performed By: #### L 501.9985, L501.5101, L500.4050, L100.0100 ####[facility] [address] [place], [address] Glucose [Mass/Vol] 185 mg/dL High 70-99 [facility] Comment on above: Performed By: #### L 501.9985, L501.5101, L500.4050, L100.0100 ####[facility] [address] [place], [address] Potassium [Moles/Vol] 3.3 mmol/L Normal 3.3-5.1 [facility] Comment on above: Performed By: #### L 501.9985, L501.5101, L500.4050, L100.0100 ####[facility] [address] [place], [address] Sodium [Moles/Vol] 136 mmol/L Normal 133-145 [facility] Comment on above: Performed By: #### L 501.9985, L501.5101, L500.4050, L100.0100 ####[facility] [address] [place], [address] T PROT 5.5 g/dL Low 5.9-8.4 [facility] Comment on above: Performed By: #### L 501.9985, L501.5101, L500.4050, L100.0100 ####[facility] [address] [place], [address] Urea nitrogen [Mass/Vol] 18 mg/dL Normal 4-19 [facility] Comment on above: Performed By: #### L 501.9985, L501.5101, L500.4050, L100.0100 ####[facility] [address] [place], [address] Eosinophil percentageOrdered By: Josy Elias on 12-07-2024 Eosinophils/100 WBC (Bld) 5.1 % High 0-5 [facility] Erythrocyte distribution wid th ratioOrdered By: Josy Elias on 12-07-2024 Erythrocyte distribution width (RBC) [Ratio] 16.9 % High 11.6-14.6 [facility] Erythrocyte distribution wid th standard deviationOrdered By: Josy Elias on 12-07-2024 Erythrocyte distribution width (RBC) [Ratio] 57.4 fl High 35.1-43.9 [facility] Gamma glutamyl transferase ( GGT) measurementOrdered By: Josy Elias on 12-07-2024 Amylase [Catalytic activity/Vol] 103 U/L High 0-65 [facility] Glomerular filtration rate ( GFR) estimation/1.73 sq m using serum, plasma, or whole bOrdered By: Josy Elias on 12-07-2024 GFR/1.73 sq M.predicted among non-blacks MDRD (S/P/Bld) [Vol rate/Area] 44 mL/min/{1.73_m2} Low >60 [facility] Hematocrit Auto (Bld) [Volum e fraction]Ordered By: Josy Elias on 12-07-2024 Hematocrit (Bld) [Volume fraction] 26.2 % Low 40-54 [facility] Hemoglobin A1con 12-07-2024 HbA1c (Bld) [Mass fraction] 7.2 % High <=5.6 [facility] Comment on above: Result Comment: Norm al < 5.7 % Prediabetic 5.7 - 6.4 % Diabetic >or= 6.5 % Please note range changes. Performed By: #### L 501.9985, L501.5101, L500.4050, L100.0100 ####[facility] [address] [place], [place], [address] Hemoglobin A1c percentageOrd ered By: Josy Elias on 12-07-2024 HbA1c (Bld) [Mass fraction] 7.2 % High <5.7 [facility] Hemoglobin measurementOrdere d By: Josy Elias on 12-07-2024 Hemoglobin (Bld) [Mass/Vol] 8.5 g/dL Low 13.0-16.5 [facility] Immature granulocytes/100 WB C Auto (Bld)Ordered By: Josy Elias on 12-07-2024 Immature granulocytes/100 WBC (Bld) 0.300 % 0.0-0.9 [facility] MCV (mean corpuscular volume ) determinationOrdered By: Josy Elias on 12-07-2024 MCV (RBC) [Entitic vol] 93.2 fL 80-94 [facility] Mean corpuscular hemoglobin (MCH) determinationOrdered By: Josy Elias on 12-07-2024 MCH (RBC) [Entitic mass] 30.2 pg 27.0-32.0 [facility] Monocyte percentageOrdered B y: Josy Elias on 12-07-2024 Monocytes/100 WBC (Bld) 12.1 % High 0-10 [facility] Neutrophil percentageOrdered By: Josy Elias on 12-07-2024 Neutrophils/100 WBC (Bld) 63.5 % 47-70 [facility] No Panel InformationOrdered By: Josy Elias on 12-07-2024 37 U/L <38 [facility] Platelet countOrdered By: Monica Elias on 12-07-2024 Platelets (Bld) [#/Vol] 145 10*3/uL Low 150-450 [facility] Potassium measurement (mass/ volume)Ordered By: Josy Elias on 12-07-2024 Potassium (Unsp spec) [Mass/Vol] 3.3 mmol/L 3.3-5.1 [facility] RBC Auto (Bld) [#/Vol]Ordere d By: Josy Elias on 12-07-2024 RBC (Bld) [#/Vol] 2.81 10*6/uL Low 4.6-6.2 [facility] Serum creatinine measurement (mass/volume)Ordered By: Josy Elias on 12-07-2024 Creatinine [Mass/Vol] 1.78 mg/dL High 0.70-1.20 [facility] Serum globulin measurementOr dered By: Josy Elias on 12-07-2024 Globulin (S) [Mass/Vol] 2.9 g/dL 2.2-4.2 [facility] Serum glucose measurement (m ass/volume)Ordered By: Josy Elias on 12-07-2024 Glucose [Mass/Vol] 185 mg/dL High 70-99 [facility] Serum or plasma alanine thomas otransferase (ALT) measurementOrdered By: Josy Elias on 12-07-2024 ALT [Catalytic activity/Vol] 24 U/L <47 [facility] Serum or plasma albumin roosevelt urement (mass/volume)Ordered By: Josy Elias on 12-07-2024 Albumin [Mass/Vol] 2.6 g/dL Low 3.5-5.0 [facility] Serum or plasma albumin/glob ulin mass ratioOrdered By: Josy Elias on 12-07-2024 Albumin/Globulin [Mass ratio] 0.9 {ratio} 0.9-2.4 [facility] Serum or plasma alkaline kendrick sphatase measurementOrdered By: Josy Elias on 12-07-2024 ALP [Catalytic activity/Vol] 241 U/L High 40-129 [facility] Serum or plasma calcium roosevelt urement (mass/volume)Ordered By: Josy Elias on 12-07-2024 Calcium [Mass/Vol] 8.2 mg/dL 7.6-11.0 [facility] Serum or plasma urea nitroge n measurement (mass/volume)Ordered By: Josy Elias on 12-07-2024 Urea nitrogen [Mass/Vol] 18 mg/dL 4-19 [facility] Sodium levelOrdered By: Terrance Elias on 12-07-2024 Sodium [Moles/Vol] 136 mmol/L 133-145 [facility] Total proteinOrdered By: Chinedu Elias on 12-07-2024 Protein [Mass/Vol] 5.5 g/dL Low 5.9-8.4 [facility] White blood cell (WBC) count Ordered By: Josy Elias on 12-07-2024 WBC (Bld) [#/Vol] 9.3 10*3/uL 4.4-11.0 [facility] CBC W/Diff, Automatedon Absolute Neut Normal 2.0-7.7 [facility] Comment on above: Result Comment: Canc elled via OM: Order cancelled - Patient discharged Performed By: #### L 100.0100, L500.4050 ####[facility] [address] [place], [address] HCT Normal 40-54 [facility] Comment on above: Result Comment: Canc elled via OM: Order cancelled - Patient discharged Performed By: #### L 100.0100, L500.4050 ####[facility] [address] [place], [address] HGB Normal 13.0-16.5 [facility] Comment on above: Result Comment: Canc elled via OM: Order cancelled - Patient discharged Performed By: #### L 100.0100, L500.4050 ####[facility] [address] [place], [address] MCH Normal 27.0-32.0 [facility] Comment on above: Result Comment: Canc elled via OM: Order cancelled - Patient discharged Performed By: #### L 100.0100, L500.4050 ####[facility] [address] [place], [address] MCHC Normal 32-36 [facility] Comment on above: Result Comment: Canc elled via OM: Order cancelled - Patient discharged Performed By: #### L 100.0100, L500.4050 ####[facility] [address] [place], [address] MCV Normal 80-94 [facility] Comment on above: Result Comment: Canc elled via OM: Order cancelled - Patient discharged Performed By: #### L 100.0100, L500.4050 ####[facility] [address] [place], [address] NEUT% Normal 47-70 [facility] Comment on above: Result Comment: Canc elled via OM: Order cancelled - Patient discharged Performed By: #### L 100.0100, L500.4050 ####[facility] [address] [place], [address] PLT Normal 150-450 [facility] Comment on above: Result Comment: Canc elled via OM: Order cancelled - Patient discharged Performed By: #### L 100.0100, L500.4050 ####[facility] [address] [place], [address] RBC Normal 4.6-6.2 [facility] Comment on above: Result Comment: Canc elled via OM: Order cancelled - Patient discharged Performed By: #### L 100.0100, L500.4050 ####[facility] [address] [place], [address] RDW CV Normal 11.6-14.6 [facility] Comment on above: Result Comment: Canc elled via OM: Order cancelled - Patient discharged Performed By: #### L 100.0100, L500.4050 ####[facility] [address] [place], [address] RDW SD Normal 35.1-43.9 [facility] Comment on above: Result Comment: Canc elled via OM: Order cancelled - Patient discharged Performed By: #### L 100.0100, L500.4050 ####[facility] [address] [place], [address] WBC Normal 4.4-11.0 [facility] Comment on above: Result Comment: Canc elled via OM: Order cancelled - Patient discharged Performed By: #### L 100.0100, L500.4050 ####[facility] [address] [place], [address] Comprehensive Metabolic Prof ilon 12-06-2024 ALB Normal 3.5-5.0 [facility] Comment on above: Result Comment: Canc elled via OM: Order cancelled - Patient discharged Performed By: #### L 100.0100, L500.4050 ####[facility] [address] [place], [address] ALK PHOS Normal 40-129 [facility] Comment on above: Result Comment: Canc elled via OM: Order cancelled - Patient discharged Performed By: #### L 100.0100, L500.4050 ####[facility] [address] [place], [address] ALT Normal <=46 [facility] Comment on above: Result Comment: Canc elled via OM: Order cancelled - Patient discharged Performed By: #### L 100.0100, L500.4050 ####[facility] [address] [place], [address] AST Normal <=37 [facility] Comment on above: Result Comment: Canc elled via OM: Order cancelled - Patient discharged Performed By: #### L 100.0100, L500.4050 ####[facility] [address] [place], [address] BUN Normal 4-19 [facility] Comment on above: Result Comment: Canc elled via OM: Order cancelled - Patient discharged Performed By: #### L 100.0100, L500.4050 ####[facility] [address] [place], [address] BUN/CRE Normal 10-20 [facility] Comment on above: Result Comment: Canc elled via OM: Order cancelled - Patient discharged Performed By: #### L 100.0100, L500.4050 ####[facility] [address] [place], [address] Calcium Normal 7.6-11.0 [facility] Comment on above: Result Comment: Canc elled via OM: Order cancelled - Patient discharged Performed By: #### L 100.0100, L500.4050 ####[facility] [address] [place], [address] CL Normal 98-108 [facility] Comment on above: Result Comment: Canc elled via OM: Order cancelled - Patient discharged Performed By: #### L 100.0100, L500.4050 ####[facility] [address] [place], [address] CO2 Normal 21.0-32.0 [facility] Comment on above: Result Comment: Canc elled via OM: Order cancelled - Patient discharged Performed By: #### L 100.0100, L500.4050 ####[facility] [address] [place], [address] CREAT,SERUM Normal 0.70-1.20 [facility] Comment on above: Result Comment: Canc elled via OM: Order cancelled - Patient discharged Performed By: #### L 100.0100, L500.4050 ####[facility] [address] [place], [address] eGFR Normal >60 [facility] Comment on above: Result Comment: Canc elled via OM: Order cancelled - Patient discharged Performed By: #### L 100.0100, L500.4050 ####[facility] [address] [place], [address] GAP Normal 5-15 [facility] Comment on above: Result Comment: Canc elled via OM: Order cancelled - Patient discharged Performed By: #### L 100.0100, L500.4050 ####[facility] [address] [place], [address] GLU Normal 70-99 [facility] Comment on above: Result Comment: Canc elled via OM: Order cancelled - Patient discharged Performed By: #### L 100.0100, L500.4050 ####[facility] [address] [place], [address] Potassium Normal 3.3-5.1 [facility] Comment on above: Result Comment: Canc elled via OM: Order cancelled - Patient discharged Performed By: #### L 100.0100, L500.4050 ####[facility] [address] [place], [address] T BILI Normal 0.00-1.30 [facility] Comment on above: Result Comment: Canc elled via OM: Order cancelled - Patient discharged Performed By: #### L 100.0100, L500.4050 ####[facility] [address] [place], [address] T PROT Normal 5.9-8.4 [facility] Comment on above: Result Comment: Canc elled via OM: Order cancelled - Patient discharged Performed By: #### L 100.0100, L500.4050 ####[facility] [address] [place], [address] Comprehensive Metabolic Profil Normal 133-145 [facility] Comment on above: Result Comment: Canc elled via OM: Order cancelled - Patient discharged Performed By: #### L 100.0100, L500.4050 ####[facility] [address] [place], [address] CBC W/Diff, Automatedon 05-0 -2024 Absolute Neut Normal 2.0-7.7 [facility] Comment on above: Result Comment: Canc elled via OM: Order cancelled - Patient discharged Performed By: #### L 100.0100, L500.4050 ####[facility] [address] [place], [address] HCT Normal 40-54 [facility] Comment on above: Result Comment: Canc elled via OM: Order cancelled - Patient discharged Performed By: #### L 100.0100, L500.4050 ####[facility] [address] [place], [address] HGB Normal 13.0-16.5 [facility] Comment on above: Result Comment: Canc elled via OM: Order cancelled - Patient discharged Performed By: #### L 100.0100, L500.4050 ####[facility] [address] [place], [address] MCH Normal 27.0-32.0 [facility] Comment on above: Result Comment: Canc elled via OM: Order cancelled - Patient discharged Performed By: #### L 100.0100, L500.4050 ####[facility] [address] [place], [address] MCHC Normal 32-36 [facility] Comment on above: Result Comment: Canc elled via OM: Order cancelled - Patient discharged Performed By: #### L 100.0100, L500.4050 ####[facility] [address] [place], [address] MCV Normal 80-94 [facility] Comment on above: Result Comment: Canc elled via OM: Order cancelled - Patient discharged Performed By: #### L 100.0100, L500.4050 ####[facility] [address] [place], [address] NEUT% Normal 47-70 [facility] Comment on above: Result Comment: Canc elled via OM: Order cancelled - Patient discharged Performed By: #### L 100.0100, L500.4050 ####[facility] [address] [place], [address] PLT Normal 150-450 [facility] Comment on above: Result Comment: Canc elled via OM: Order cancelled - Patient discharged Performed By: #### L 100.0100, L500.4050 ####[facility] [address] [place], [address] RBC Normal 4.6-6.2 [facility] Comment on above: Result Comment: Canc elled via OM: Order cancelled - Patient discharged Performed By: #### L 100.0100, L500.4050 ####[facility] [address], [address] RDW CV Normal 11.6-14.6 [facility] Comment on above: Result Comment: Canc elled via OM: Order cancelled - Patient discharged Performed By: #### L 100.0100, L500.4050 ####[facility] [address] [place], [address] RDW SD Normal 35.1-43.9 [facility] Comment on above: Result Comment: Canc elled via OM: Order cancelled - Patient discharged Performed By: #### L 100.0100, L500.4050 ####[facility] [address] [place], [address] WBC Normal 4.4-11.0 [facility] Comment on above: Result Comment: Canc elled via OM: Order cancelled - Patient discharged Performed By: #### L 100.0100, L500.4050 ####[facility] [address] [place], [address] Comprehensive Metabolic Prof nvon 12-05-2024 ALB Normal 3.5-5.0 [facility] Comment on above: Result Comment: Canc elled via OM: Order cancelled - Patient discharged Performed By: #### L 100.0100, L500.4050 ####[facility] [address] [place], [address] ALK PHOS Normal 40-129 [facility] Comment on above: Result Comment: Canc elled via OM: Order cancelled - Patient discharged Performed By: #### L 100.0100, L500.4050 ####[facility] [address] [place], [address] ALT Normal <=46 [facility] Comment on above: Result Comment: Canc elled via OM: Order cancelled - Patient discharged Performed By: #### L 100.0100, L500.4050 ####[facility] [address] [place], [address] AST Normal <=37 [facility] Comment on above: Result Comment: Canc elled via OM: Order cancelled - Patient discharged Performed By: #### L 100.0100, L500.4050 ####[facility] [address] [place], [address] BUN Normal 4-19 [facility] Comment on above: Result Comment: Canc elled via OM: Order cancelled - Patient discharged Performed By: #### L 100.0100, L500.4050 ####[facility] [address] [place], [address] BUN/CRE Normal 10-20 [facility] Comment on above: Result Comment: Canc elled via OM: Order cancelled - Patient discharged Performed By: #### L 100.0100, L500.4050 ####[facility] [address] [place], [address] Calcium Normal 7.6-11.0 [facility] Comment on above: Result Comment: Canc elled via OM: Order cancelled - Patient discharged Performed By: #### L 100.0100, L500.4050 ####[facility] [address] [place], [address] CL Normal 98-108 [facility] Comment on above: Result Comment: Canc elled via OM: Order cancelled - Patient discharged Performed By: #### L 100.0100, L500.4050 ####[facility] [address] [place], [address] CO2 Normal 21.0-32.0 [facility] Comment on above: Result Comment: Canc elled via OM: Order cancelled - Patient discharged Performed By: #### L 100.0100, L500.4050 ####[facility] [address] [place], [address] CREAT,SERUM Normal 0.70-1.20 [facility] Comment on above: Result Comment: Canc elled via OM: Order cancelled - Patient discharged Performed By: #### L 100.0100, L500.4050 ####[facility] [address] [place], [address] eGFR Normal >60 [facility] Comment on above: Result Comment: Canc elled via OM: Order cancelled - Patient discharged Performed By: #### L 100.0100, L500.4050 ####[facility] [address] [place], [address] GAP Normal 5-15 [facility] Comment on above: Result Comment: Canc elled via OM: Order cancelled - Patient discharged Performed By: #### L 100.0100, L500.4050 ####[facility] [address] [place], [address] GLU Normal 70-99 [facility] Comment on above: Result Comment: Canc elled via OM: Order cancelled - Patient discharged Performed By: #### L 100.0100, L500.4050 ####[facility] [address] [place], [address] Potassium Normal 3.3-5.1 [facility] Comment on above: Result Comment: Canc elled via OM: Order cancelled - Patient discharged Performed By: #### L 100.0100, L500.4050 ####[facility] [address] [place], [address] T BILI Normal 0.00-1.30 [facility] Comment on above: Result Comment: Canc elled via OM: Order cancelled - Patient discharged Performed By: #### L 100.0100, L500.4050 ####[facility] [address] [place], [address] T PROT Normal 5.9-8.4 [facility] Comment on above: Result Comment: Canc elled via OM: Order cancelled - Patient discharged Performed By: #### L 100.0100, L500.4050 ####[facility] [address] [place], [address] Comprehensive Metabolic Profil Normal 133-145 [facility] Comment on above: Result Comment: Canc elled via OM: Order cancelled - Patient discharged Performed By: #### L 100.0100, L500.4050 ####[facility] [address] [place], [address] CBC W/Diff, Automatedon 05-0 -2024 Absolute Neut Normal 2.0-7.7 [facility] Comment on above: Result Comment: Canc elled via OM: Order cancelled - Patient discharged Performed By: #### L 100.0100 ####[facility] [address] [place], [address] HCT Normal 40-54 [facility] Comment on above: Result Comment: Canc elled via OM: Order cancelled - Patient discharged Performed By: #### L 100.0100 ####[facility] [address] [place], [address] HGB Normal 13.0-16.5 [facility] Comment on above: Result Comment: Canc elled via OM: Order cancelled - Patient discharged Performed By: #### L 100.0100 ####[facility] [address] [place], [address] MCH Normal 27.0-32.0 [facility] Comment on above: Result Comment: Canc elled via OM: Order cancelled - Patient discharged Performed By: #### L 100.0100 ####[facility] [address] [place], [address] MCHC Normal 32-36 [facility] Comment on above: Result Comment: Canc elled via OM: Order cancelled - Patient discharged Performed By: #### L 100.0100 ####[facility] [address] [place], [address] MCV Normal 80-94 [facility] Comment on above: Result Comment: Canc elled via OM: Order cancelled - Patient discharged Performed By: #### L 100.0100 ####[facility] [address] [place], [address] NEUT% Normal 47-70 [facility] Comment on above: Result Comment: Canc elled via OM: Order cancelled - Patient discharged Performed By: #### L 100.0100 ####[facility] [address] [place], [address] PLT Normal 150-450 [facility] Comment on above: Result Comment: Canc elled via OM: Order cancelled - Patient discharged Performed By: #### L 100.0100 ####[facility] [address] [place], [address] RBC Normal 4.6-6.2 [facility] Comment on above: Result Comment: Canc elled via OM: Order cancelled - Patient discharged Performed By: #### L 100.0100 ####[facility] [address] [place], [address] RDW CV Normal 11.6-14.6 [facility] Comment on above: Result Comment: Canc elled via OM: Order cancelled - Patient discharged Performed By: #### L 100.0100 ####[facility] [address] [place], [address] RDW SD Normal 35.1-43.9 [facility] Comment on above: Result Comment: Canc elled via OM: Order cancelled - Patient discharged Performed By: #### L 100.0100 ####[facility] [address] [place], [address] WBC Normal 4.4-11.0 [facility] Comment on above: Result Comment: Canc elled via OM: Order cancelled - Patient discharged Performed By: #### L 100.0100 ####[facility] [address] [place], [address] CBC W/Diff, Automatedon 05-0 -2024 Absolute Neut Normal 2.0-7.7 [facility] Comment on above: Result Comment: Canc elled via OM: Order cancelled - Patient discharged Performed By: #### L 100.0100 ####[facility] [address] [place], [address] HCT Normal 40-54 [facility] Comment on above: Result Comment: Canc elled via OM: Order cancelled - Patient discharged Performed By: #### L 100.0100 ####[facility] [address] [place], [address] HGB Normal 13.0-16.5 [facility] Comment on above: Result Comment: Canc elled via OM: Order cancelled - Patient discharged Performed By: #### L 100.0100 ####[facility] [address] [place], [address] MCH Normal 27.0-32.0 [facility] Comment on above: Result Comment: Canc elled via OM: Order cancelled - Patient discharged Performed By: #### L 100.0100 ####[facility] [address] [place], [address] MCHC Normal 32-36 [facility] Comment on above: Result Comment: Canc elled via OM: Order cancelled - Patient discharged Performed By: #### L 100.0100 ####[facility] [address] [place], [address] MCV Normal 80-94 [facility] Comment on above: Result Comment: Canc elled via OM: Order cancelled - Patient discharged Performed By: #### L 100.0100 ####[facility] [address] [place], [address] NEUT% Normal 47-70 [facility] Comment on above: Result Comment: Canc elled via OM: Order cancelled - Patient discharged Performed By: #### L 100.0100 ####[facility] [address] [place], [address] PLT Normal 150-450 [facility] Comment on above: Result Comment: Canc elled via OM: Order cancelled - Patient discharged Performed By: #### L 100.0100 ####[facility] [address] [place], [address] RBC Normal 4.6-6.2 [facility] Comment on above: Result Comment: Canc elled via OM: Order cancelled - Patient discharged Performed By: #### L 100.0100 ####[facility] [address] [place], [address] RDW CV Normal 11.6-14.6 [facility] Comment on above: Result Comment: Canc elled via OM: Order cancelled - Patient discharged Performed By: #### L 100.0100 ####[facility] [address] [place], [address] RDW SD Normal 35.1-43.9 [facility] Comment on above: Result Comment: Canc elled via OM: Order cancelled - Patient discharged Performed By: #### L 100.0100 ####[facility] [address] [place], [address] WBC Normal 4.4-11.0 [facility] Comment on above: Result Comment: Canc elled via OM: Order cancelled - Patient discharged Performed By: #### L 100.0100 ####[facility] [address] [place], [address] Absolute lymphocyte countOrd ered By: Hill Acuña on 12-02-2024 Lymphocytes Auto (Unsp spec) [#/Vol] 0.92 10*3/uL 0.83-4.51 [facility] Anion gap in Serum or Plasma Ordered By: Hill Acuña on 12-02-2024 Anion gap [Moles/Vol] 7 mmol/L 5-15 [facility] Automated lymphocyte count a s percentage of total leukocytesOrdered By: Hill Acuña on 12-02-2024 Lymphocytes/100 WBC Auto (Unsp spec) 15.7 % Low 19-41 [facility] BUN/creatinine ratioOrdered By: Hill Acuña on 12-02-2024 Urea nitrogen/Creatinine [Mass ratio] 8.1 mg/mg Low 10-20 [facility] Basophil percentageOrdered B y: Hill Acuña on 12-02-2024 Basophils/100 WBC (Bld) 0.5 % 0-1 [facility] Bedside Glucoseon 12-02-2024 FINGERSTICK GLU 259 mg/dL High 74-106 [facility] Comment on above: Result Comment: BRISA GEMENT OF PATIENT CARE PER NURSING PROTOCOL Performed By: #### L 501.080 ####[facility] [address] [place], [address] FINGERSTICK GLU 243 mg/dL High 74-106 [facility] Comment on above: Result Comment: BRISA GEMENT OF PATIENT CARE PER NURSING PROTOCOL Performed By: #### L 501.080 ####[facility] [address] [place], [address] Bilirubin, totalOrdered By: Hill Acuña on 12-02-2024 Bilirubin [Mass/Vol] 1.07 mg/dL 0.00-1.30 [facility] CBC W/Diff, Automatedon Absolute Lymph 0.92 X10 3/uL Normal 0.83-4.51 [facility] Comment on above: Order Comment: VANCO Performed By: #### L 501.2300, L501.5200, L500.4050, L100.0100 ####[facility] [address] [place], [address] Absolute Neut 3.9 X10 3/uL Normal 2.0-7.7 [facility] Comment on above: Order Comment: VANCO Performed By: #### L 501.2300, L501.5200, L500.4050, L100.0100 ####[facility] [address] [place], [address] Basophils/100 WBC (Bld) 0.5 % Normal 0-1 [facility] Comment on above: Order Comment: VANCO Performed By: #### L 501.2300, L501.5200, L500.4050, L100.0100 ####[facility] [address] [place], [address] Eosinophils/100 WBC (Bld) 3.6 % Normal 0-5 [facility] Comment on above: Order Comment: VANCO Performed By: #### L 501.2300, L501.5200, L500.4050, L100.0100 ####[facility] [address] [place], [address] Erythrocyte distribution width (RBC) [Ratio] 16.2 % High 11.6-14.6 [facility] Comment on above: Order Comment: VANCO Performed By: #### L 501.2300, L501.5200, L500.4050, L100.0100 ####[facility] [address] [place], [address] Hematocrit (Bld) [Volume fraction] 21.9 % Low 40-54 [facility] Comment on above: Order Comment: VANCO Performed By: #### L 501.2300, L501.5200, L500.4050, L100.0100 ####[facility] [address] [place], [address] Hemoglobin (Bld) [Mass/Vol] 7.2 g/dL Low 13.0-16.5 [facility] Comment on above: Order Comment: VANCO Performed By: #### L 501.2300, L501.5200, L500.4050, L100.0100 ####[facility] [address] [place], [address] IG% 0.500 Normal 0.0-0.9 [facility] Comment on above: Order Comment: VANCO Result Comment: IG% - Immature Granulocytes (promyelocytes, myelocytes andmetamyelocytes) > 1% indicates that a LEFT SHIFT is Present. Performed By: #### L 501.2300, L501.5200, L500.4050, L100.0100 ####[facility] [address] [place], [address] Lymphocytes/100 WBC (Bld) 15.7 % Low 19-41 [facility] Comment on above: Order Comment: VANCO Performed By: #### L 501.2300, L501.5200, L500.4050, L100.0100 ####[facility] [address] [place], [address] MCH (RBC) [Entitic mass] 29.5 pg Normal 27.0-32.0 [facility] Comment on above: Order Comment: VANCO Performed By: #### L 501.2300, L501.5200, L500.4050, L100.0100 ####[facility] [address] [place], [address] MCHC (RBC) [Mass/Vol] 32.9 g/dL Normal 32-36 [facility] Comment on above: Order Comment: VANCO Performed By: #### L 501.2300, L501.5200, L500.4050, L100.0100 ####[facility] [address] [place], [address] MCV (RBC) [Entitic vol] 89.8 fL Normal 80-94 [facility] Comment on above: Order Comment: VANCO Performed By: #### L 501.2300, L501.5200, L500.4050, L100.0100 ####[facility] [address] [place], [address] Monocytes/100 WBC (Bld) 13.3 % High 0-10 [facility] Comment on above: Order Comment: VANCO Performed By: #### L 501.2300, L501.5200, L500.4050, L100.0100 ####[facility] [address] [place], [address] Neutrophils/100 WBC (Bld) 66.4 % Normal 47-70 [facility] Comment on above: Order Comment: VANCO Performed By: #### L 501.2300, L501.5200, L500.4050, L100.0100 ####[facility] [address] [place], [address] Nucleated RBC (Bld) [#/Vol] 0 10*3/uL Normal 0-5 [facility] Comment on above: Order Comment: VANCO Performed By: #### L 501.2300, L501.5200, L500.4050, L100.0100 ####[facility] [address] [place], [address] Platelet mean volume (Bld) [Entitic vol] 12.9 fL High 6.2-12.0 [facility] Comment on above: Order Comment: VANCO Performed By: #### L 501.2300, L501.5200, L500.4050, L100.0100 ####[facility] [address] [place], [address] Platelets (Bld) [#/Vol] 100 10*3/uL Low 150-450 [facility] Comment on above: Order Comment: VANCO Performed By: #### L 501.2300, L501.5200, L500.4050, L100.0100 ####[facility] [address] [place], [address] RBC (Bld) [#/Vol] 2.44 10*6/uL Low 4.6-6.2 [facility] Comment on above: Order Comment: VANCO Performed By: #### L 501.2300, L501.5200, L500.4050, L100.0100 ####[facility] [address] [place], [address] RDW SD 53.0 fl High 35.1-43.9 [facility] Comment on above: Order Comment: VANCO Performed By: #### L 501.2300, L501.5200, L500.4050, L100.0100 ####[facility] [address] [place], [address] WBC (Bld) [#/Vol] 5.9 10*3/uL Normal 4.4-11.0 [facility] Comment on above: Order Comment: VANCO Performed By: #### L 501.2300, L501.5200, L500.4050, L100.0100 ####[facility] [address] [place], [address] Carbon dioxide, total [Moles /volume] in Central venous bloodOrdered By: Hill Acuña on 12-02-2024 CO2 [Moles/Vol] 21.0 mmol/L 21.0-32.0 [facility] Chloride assayOrdered By: Kvng Acuña on 12-02-2024 Chloride [Moles/Vol] 104 mmol/L 98-108 [facility] Comprehensive Metabolic Prof ilon 12-02-2024 ALK PHOS 219 U/L High 40-129 [facility] Comment on above: Order Comment: VANCO Performed By: #### L 501.2300, L501.5200, L500.4050, L100.0100 ####[facility] [address] [place], [address] Eosinophil percentageOrdered By: Hill Acuña on 12-02-2024 Eosinophils/100 WBC (Bld) 3.6 % 0-5 [facility] Erythrocyte distribution wid th ratioOrdered By: Hill Acuña on 12-02-2024 Erythrocyte distribution width (RBC) [Ratio] 16.2 % High 11.6-14.6 [facility] Erythrocyte distribution wid th standard deviationOrdered By: Hill Acuña on 12-02-2024 Erythrocyte distribution width (RBC) [Ratio] 53.0 fl High 35.1-43.9 [facility] Glomerular filtration rate ( GFR) estimation/1.73 sq m using serum, plasma, or whole bOrdered By: Hill Acuña on 12-02-2024 GFR/1.73 sq M.predicted among non-blacks MDRD (S/P/Bld) [Vol rate/Area] 98 mL/min/{1.73_m2} >60 [facility] deOrdered By: Hill Acuña on 12-02-2024 Glucose [Mass/Vol] 259 mg/dL High 74-106 [facility] Hematocrit Auto (Bld) [Volum e fraction]Ordered By: Hill Acuña on 12-02-2024 Hematocrit (Bld) [Volume fraction] 21.9 % Low 40-54 [facility] Hemoglobin measurementOrdere d By: Hill Acuña on 12-02-2024 Hemoglobin (Bld) [Mass/Vol] 7.2 g/dL Low 13.0-16.5 [facility] Immature granulocytes/100 WB C Auto (Bld)Ordered By: Hill Acuña on 12-02-2024 Immature granulocytes/100 WBC (Bld) 0.500 % 0.0-0.9 [facility] MCV (mean corpuscular volume ) determinationOrdered By: Hill Acuña on 12-02-2024 MCV (RBC) [Entitic vol] 89.8 fL 80-94 [facility] Magnesiumon 12-02-2024 Magnesium [Mass/Vol] 1.6 mg/dL Normal 1.5-2.2 [facility] Comment on above: Order Comment: VANCO Performed By: #### L 501.2300, L501.5200, L500.4050, L100.0100 ####[facility] [address] [place], [place], [address] Magnesium measurement (mass/ volume)Ordered By: Hill Acuña on 12-02-2024 Magnesium (Unsp spec) [Mass/Vol] 1.6 mg/dL 1.5-2.2 [facility] Mean corpuscular hemoglobin (MCH) determinationOrdered By: Hill Acuña on 12-02-2024 MCH (RBC) [Entitic mass] 29.5 pg 27.0-32.0 [facility] Monocyte percentageOrdered B y: Hill Acuña on 12-02-2024 Monocytes/100 WBC (Bld) 13.3 % High 0-10 [facility] Neutrophil percentageOrdered By: Hill Acuña on 12-02-2024 Neutrophils/100 WBC (Bld) 66.4 % 47-70 [facility] No Panel InformationOrdered By: Hill Acuña on 12-02-2024 58 U/L High <38 [facility] Phosphoruson 12-02-2024 Phosphate [Mass/Vol] 2.3 mg/dL Low 2.7-4.5 [facility] Comment on above: Order Comment: VANCO Performed By: #### L 501.2300, L501.5200, L500.4050, L100.0100 ####[facility] [address] [place], [place], [id number] Platelet countOrdered By: Kvng Acuña on 12-02-2024 Platelets (Bld) [#/Vol] 100 10*3/uL Low 150-450 [facility] Potassium measurement (mass/ volume)Ordered By: Hill Acuña on 12-02-2024 Potassium (Unsp spec) [Mass/Vol] 3.8 mmol/L 3.3-5.1 [facility] RBC Auto (Bld) [#/Vol]Ordere d By: Hill Acuña on 12-02-2024 RBC (Bld) [#/Vol] 2.44 10*6/uL Low 4.6-6.2 [facility] Serum creatinine measurement (mass/volume)Ordered By: Hill Acuña on 12-02-2024 Creatinine [Mass/Vol] 0.90 mg/dL 0.70-1.20 [facility] Serum globulin measurementOr dered By: Hill Acuña on 12-02-2024 Globulin (S) [Mass/Vol] 2.6 g/dL 2.2-4.2 [facility] Serum glucose measurement (m ass/volume)Ordered By: Hill Acuña on 12-02-2024 Glucose [Mass/Vol] 221 mg/dL High 70-99 [facility] Serum or plasma alanine thomas otransferase (ALT) measurementOrdered By: Hill Acuña on 12-02-2024 ALT [Catalytic activity/Vol] 33 U/L <47 [facility] Serum or plasma albumin roosevelt urement (mass/volume)Ordered By: Hill Acuña on 12-02-2024 Albumin [Mass/Vol] 2.5 g/dL Low 3.5-5.0 [facility] Serum or plasma albumin/glob ulin mass ratioOrdered By: Hill Acuña on 12-02-2024 Albumin/Globulin [Mass ratio] 1.0 {ratio} 0.9-2.4 [facility] Serum or plasma alkaline kendrick sphatase measurementOrdered By: Hill Acuña on 12-02-2024 ALP [Catalytic activity/Vol] 219 U/L High 40-129 [facility] Serum or plasma calcium roosevelt urement (mass/volume)Ordered By: Hill Acuña on 12-02-2024 Calcium [Mass/Vol] 7.8 mg/dL 7.6-11.0 [facility] Serum or plasma urea nitroge n measurement (mass/volume)Ordered By: Hill Acuña on 12-02-2024 Urea nitrogen [Mass/Vol] 7 mg/dL 4-19 [facility] Sodium levelOrdered By: Paulino Acuña on 12-02-2024 Sodium [Moles/Vol] 132 mmol/L Low 133-145 [facility] Total proteinOrdered By: Hugo Acuña on 12-02-2024 Protein [Mass/Vol] 5.1 g/dL Low 5.9-8.4 [facility] Trough vancomycin levelOrder ed By: Maria Guadalupe Shore on 12-02-2024 Vancomycin trough [Mass/Vol] 19.6 ug/mL High 5.0-15.0 [facility] Vancomycin, Trough Levelon 0 12-02-2024 VANCO, TROUGH 19.6 ug/mL High 5.0-15.0 [facility] Comment on above: Order Comment: Comme nts: Trough to be drawn 30 mins prior to scheduled [id number] Result Comment: Eleazar mmended goal trough ranges [...] therapy recommended for serious lifethreatening infections include:- Hdnyijksan-Bvxkjikkqezl-Rrxggfjua (Ventilator/Healtcare Associated)-SepsisPLEASE CONTACT PHARMACY SERVICES (#9650) FOR INTERPRETATIONOF RESULTS. Performed By: #### L 501.8820 ####[facility] [address] [facility] [address] White blood cell (WBC) count Ordered By: Hill Acuña on 12-02-2024 WBC (Bld) [#/Vol] 5.9 10*3/uL 4.4-11.0 [facility] Bedside Glucoseon 12-01-2024 FINGERSTICK GLU 249 mg/dL High 74-106 [facility] Comment on above: Result Comment: BRISA GEMENT OF PATIENT CARE PER NURSING PROTOCOL Performed By: #### L 501.080 ####[facility] [address] [facility] [address] FINGERSTICK GLU 297 mg/dL High -106 [facility] Comment on above: Result Comment: BRISA GEMENT OF PATIENT CARE PER NURSING PROTOCOL Performed By: #### L 501.080 ####[facility] [address] [place], [address] FINGERSTICK GLU 232 mg/dL High 74-106 [facility] Comment on above: Result Comment: BRISA GEMENT OF PATIENT CARE PER NURSING PROTOCOL Performed By: #### L 501.080 ####[facility] [address] [place], [address] FINGERSTICK GLU 229 mg/dL High 74-106 [facility] Comment on above: Result Comment: BRISA MOROCHO OF PATIENT CARE PER NURSING PROTOCOL Performed By: #### L 501.080 ####[facility] [address] [place], [address] CBC W/Diff, Automatedon 04-3 0-2024 Absolute Lymph 1.09 X10 3/uL Normal 0.83-4.51 [facility] Comment on above: Performed By: #### L 501.5200, L501.2300, L100.0100, L500.4050 ####[facility] [address] [place], [address] Absolute Neut 4.2 X10 3/uL Normal 2.0-7.7 [facility] Comment on above: Performed By: #### L 501.5200, L501.2300, L100.0100, L500.4050 ####[facility] [address] [place], [address] Basophils/100 WBC (Bld) 0.3 % Normal 0-1 [facility] Comment on above: Performed By: #### L 501.5200, L501.2300, L100.0100, L500.4050 ####[facility] [address] [place], [address] Eosinophils/100 WBC (Bld) 3.8 % Normal 0-5 [facility] Comment on above: Performed By: #### L 501.5200, L501.2300, L100.0100, L500.4050 ####[facility] [address] [place], [address] Erythrocyte distribution width (RBC) [Ratio] 16.3 % High 11.6-14.6 [facility] Comment on above: Performed By: #### L 501.5200, L501.2300, L100.0100, L500.4050 ####[facility] [address] [place], [address] Hematocrit (Bld) [Volume fraction] 21.9 % Low 40-54 [facility] Comment on above: Performed By: #### L 501.5200, L501.2300, L100.0100, L500.4050 ####[facility] [address] [place], [address] Hemoglobin (Bld) [Mass/Vol] 7.2 g/dL Low 13.0-16.5 [facility] Comment on above: Performed By: #### L 501.5200, L501.2300, L100.0100, L500.4050 ####[facility] [address] [place], [address] IG% 0.500 Normal 0.0-0.9 [facility] Comment on above: Result Comment: IG% - Immature Granulocytes (promyelocytes, myelocytes andmetamyelocytes) > 1% indicates that a LEFT SHIFT is Present. Performed By: #### L 501.5200, L501.2300, L100.0100, L500.4050 ####[facility] [address] [place], [address] Lymphocytes/100 WBC (Bld) 16.6 % Low 19-41 [facility] Comment on above: Performed By: #### L 501.5200, L501.2300, L100.0100, L500.4050 ####[facility] [address] [place], [address] MCH (RBC) [Entitic mass] 30.1 pg Normal 27.0-32.0 [facility] Comment on above: Performed By: #### L 501.5200, L501.2300, L100.0100, L500.4050 ####[facility] [address] [place], [address] MCHC (RBC) [Mass/Vol] 32.9 g/dL Normal 32-36 [facility] Comment on above: Performed By: #### L 501.5200, L501.2300, L100.0100, L500.4050 ####[facility] [address] [place], [address] MCV (RBC) [Entitic vol] 91.6 fL Normal 80-94 [facility] Comment on above: Performed By: #### L 501.5200, L501.2300, L100.0100, L500.4050 ####[facility] [address] [place], [address] Monocytes/100 WBC (Bld) 14.7 % High 0-10 [facility] Comment on above: Performed By: #### L 501.5200, L501.2300, L100.0100, L500.4050 ####[facility] [address] [place], [address] Neutrophils/100 WBC (Bld) 64.1 % Normal 47-70 [facility] Comment on above: Performed By: #### L 501.5200, L501.2300, L100.0100, L500.4050 ####[facility] [address] [place], [address] Nucleated RBC (Bld) [#/Vol] 0 10*3/uL Normal 0-5 [facility] Comment on above: Performed By: #### L 501.5200, L501.2300, L100.0100, L500.4050 ####[facility] [address] [place], [address] Platelet mean volume (Bld) [Entitic vol] 12.3 fL High 6.2-12.0 [facility] Comment on above: Performed By: #### L 501.5200, L501.2300, L100.0100, L500.4050 ####[facility] [address] [place], [address] Platelets (Bld) [#/Vol] 88 10*3/uL Low 150-450 [facility] Comment on above: Performed By: #### L 501.5200, L501.2300, L100.0100, L500.4050 ####[facility] [address] [place], [address] RBC (Bld) [#/Vol] 2.39 10*6/uL Low 4.6-6.2 [facility] Comment on above: Performed By: #### L 501.5200, L501.2300, L100.0100, L500.4050 ####[facility] [address] [place], [address] RDW SD 54.1 fl High 35.1-43.9 [facility] Comment on above: Performed By: #### L 501.5200, L501.2300, L100.0100, L500.4050 ####[facility] [address] [place], [address] WBC (Bld) [#/Vol] 6.6 10*3/uL Normal 4.4-11.0 [facility] Comment on above: Performed By: #### L 501.5200, L501.2300, L100.0100, L500.4050 ####[facility] [address] [place], [address] Comprehensive Metabolic Prof ilon 12-01-2024 Albumin [Mass/Vol] 2.5 g/dL Low 3.5-5.0 [facility] Comment on above: Performed By: #### L 501.5200, L501.2300, L100.0100, L500.4050 ####[facility] [address] [place], [address] Albumin/Globulin [Mass ratio] 1.0 {ratio} Normal 0.9-2.4 [facility] Comment on above: Performed By: #### L 501.5200, L501.2300, L100.0100, L500.4050 ####[facility] [address] [place], [address] ALK PHOS 210 U/L High 40-129 [facility] Comment on above: Performed By: #### L 501.5200, L501.2300, L100.0100, L500.4050 ####[facility] [address] [place], [address] ALT [Catalytic activity/Vol] 36 U/L Normal <=46 [facility] Comment on above: Performed By: #### L 501.5200, L501.2300, L100.0100, L500.4050 ####[facility] [address] [place], [address] AST [Catalytic activity/Vol] 72 U/L High <=37 [facility] Comment on above: Performed By: #### L 501.5200, L501.2300, L100.0100, L500.4050 ####[facility] [address] [place], [address] Bilirubin [Mass/Vol] 0.95 mg/dL Normal 0.00-1.30 [facility] Comment on above: Performed By: #### L 501.5200, L501.2300, L100.0100, L500.4050 ####[facility] [address] [place], [address] BUN/CRE 7.9 RATIO Low 10-20 [facility] Comment on above: Performed By: #### L 501.5200, L501.2300, L100.0100, L500.4050 ####[facility] [address] [place], [address] Calcium [Mass/Vol] 7.6 mg/dL Normal 7.6-11.0 [facility] Comment on above: Performed By: #### L 501.5200, L501.2300, L100.0100, L500.4050 ####[facility] [address] [place], [address] Chloride [Moles/Vol] 106 mmol/L Normal 98-108 [facility] Comment on above: Performed By: #### L 501.5200, L501.2300, L100.0100, L500.4050 ####[facility] [address] [place], [address] CO2 [Moles/Vol] 19.3 mmol/L Low 21.0-32.0 [facility] Comment on above: Performed By: #### L 501.5200, L501.2300, L100.0100, L500.4050 ####[facility] [address] [place], [address] Creatinine [Mass/Vol] 0.89 mg/dL Normal 0.70-1.20 [facility] Comment on above: Performed By: #### L 501.5200, L501.2300, L100.0100, L500.4050 ####[facility] [address] [place], [address] ECRCL 106.24 ml/min Normal 50-250 [facility] Comment on above: Performed By: #### L 501.5200, L501.2300, L100.0100, L500.4050 ####[facility] [address] [place], [address] GAP 8 Normal 5-15 [facility] Comment on above: Performed By: #### L 501.5200, L501.2300, L100.0100, L500.4050 ####[facility] [address] [place], [address] GFR/1.73 sq M.predicted among non-blacks MDRD (S/P/Bld) [Vol rate/Area] 99 mL/min/{1.73_m2} Normal >60 [facility] Comment on above: Result Comment: mL/m in/1.73m2 CKD-EPI Creatinine Equation (2020) Performed By: #### L 501.5200, L501.2300, L100.0100, L500.4050 ####[facility] [address] [place], [address] Globulin (S) [Mass/Vol] 2.4 g/dL Normal 2.2-4.2 [facility] Comment on above: Performed By: #### L 501.5200, L501.2300, L100.0100, L500.4050 ####[facility] [address] [place], [address] Glucose [Mass/Vol] 245 mg/dL High 70-99 [facility] Comment on above: Performed By: #### L 501.5200, L501.2300, L100.0100, L500.4050 ####[facility] [address] [place], [address] Potassium [Moles/Vol] 3.6 mmol/L Normal 3.3-5.1 [facility] Comment on above: Performed By: #### L 501.5200, L501.2300, L100.0100, L500.4050 ####[facility] [address] [place], [address] Sodium [Moles/Vol] 133 mmol/L Normal 133-145 [facility] Comment on above: Performed By: #### L 501.5200, L501.2300, L100.0100, L500.4050 ####[facility] [address] [place], [address] T PROT 4.9 g/dL Low 5.9-8.4 [facility] Comment on above: Performed By: #### L 501.5200, L501.2300, L100.0100, L500.4050 ####[facility] [address] [place], [address] Urea nitrogen [Mass/Vol] 7 mg/dL Normal 4-19 [facility] Comment on above: Performed By: #### L 501.5200, L501.2300, L100.0100, L500.4050 ####[facility] [address] [place], [address] Consultation - Infectious Dx on 12-01-2024 Consultation - Infectious Dx Normal [facility] Magnesiumon 12-01-2024 Magnesium [Mass/Vol] 1.8 mg/dL Normal 1.5-2.2 [facility] Comment on above: Performed By: #### L 501.5200, L501.2300, L100.0100, L500.4050 ####[facility] [address] [place], [address] Phosphoruson 12-01-2024 Phosphate [Mass/Vol] 1.8 mg/dL Low 2.7-4.5 [facility] Comment on above: Performed By: #### L 501.5200, L501.2300, L100.0100, L500.4050 ####[facility] [address] [place], [address] Urine Cultureon 12-01-2024 URC Normal [facility] Comment on above: Performed By: #### M 100.2200 ####[facility] [address] [place], [address] Bedside Glucoseon 11-30-2024 FINGERSTICK GLU 258 mg/dL High 74-106 [facility] Comment on above: Result Comment: BRISA GEMENT OF PATIENT CARE PER NURSING PROTOCOL Performed By: #### L 501.080 ####[facility] [address] [place], [address] FINGERSTICK GLU 261 mg/dL High [address] [place] [address] Comment on above: Result Comment: BRISA GEMENT OF PATIENT CARE PER NURSING PROTOCOL Performed By: #### L 501.080 ####[facility] [address] [place], [address] FINGERSTICK GLU 219 mg/dL High -106 [facility] Comment on above: Result Comment: BRISA GEMENT OF PATIENT CARE PER NURSING PROTOCOL Performed By: #### L 501.080 ####[facility] [address] [place], [address] FINGERSTICK GLU 185 mg/dL High [address] [place] [address] Comment on above: Result Comment: BRISA GEMENT OF PATIENT CARE PER NURSING PROTOCOL Performed By: #### L 501.080 ####[facility] [address] [place], [address] CBC W/Diff, Automatedon - PLT EST MOD DEC Normal ADEQ [facility] Comment on above: Performed By: #### L 501.5200, L501.2300, L100.0100, L500.4050 ####[facility] [address] [place], [address] Comprehensive Metabolic Prof ilon 11-30-2024 Albumin [Mass/Vol] 2.5 g/dL Low 3.5-5.0 [facility] Comment on above: Performed By: #### L 501.5200, L501.2300, L100.0100, L500.4050 ####[facility] [address] [place], [address] Albumin/Globulin [Mass ratio] 1.0 {ratio} Normal 0.9-2.4 [facility] Comment on above: Performed By: #### L 501.5200, L501.2300, L100.0100, L500.4050 ####[facility] [address] [place], [address] ALK PHOS 194 U/L High 40-129 [facility] Comment on above: Performed By: #### L 501.5200, L501.2300, L100.0100, L500.4050 ####[facility] [address] [place], [address] ALT [Catalytic activity/Vol] 37 U/L Normal <=46 [facility] Comment on above: Performed By: #### L 501.5200, L501.2300, L100.0100, L500.4050 ####[facility] [address] [place], [address] AST [Catalytic activity/Vol] 75 U/L High <=37 [facility] Comment on above: Performed By: #### L 501.5200, L501.2300, L100.0100, L500.4050 ####[facility] [address] [place], [address] Bilirubin [Mass/Vol] 0.89 mg/dL Normal 0.00-1.30 [facility] Comment on above: Performed By: #### L 501.5200, L501.2300, L100.0100, L500.4050 ####[facility] [address] [place], [address] BUN/CRE 10.5 RATIO Normal 10-20 [facility] Comment on above: Performed By: #### L 501.5200, L501.2300, L100.0100, L500.4050 ####[facility] [address] [place], [address] Calcium [Mass/Vol] 7.6 mg/dL Normal 7.6-11.0 [facility] Comment on above: Performed By: #### L 501.5200, L501.2300, L100.0100, L500.4050 ####[facility] [address] [place], [address] Chloride [Moles/Vol] 106 mmol/L Normal 98-108 [facility] Comment on above: Performed By: #### L 501.5200, L501.2300, L100.0100, L500.4050 ####[facility] [address] [place], [address] CO2 [Moles/Vol] 17.5 mmol/L Low 21.0-32.0 [facility] Comment on above: Performed By: #### L 501.5200, L501.2300, L100.0100, L500.4050 ####[facility] [address] [place], [address] Creatinine [Mass/Vol] 0.91 mg/dL Normal 0.70-1.20 [facility] Comment on above: Performed By: #### L 501.5200, L501.2300, L100.0100, L500.4050 ####[facility] [address] [place], [address] ECRCL 103.85 ml/min Normal 50-250 [facility] Comment on above: Performed By: #### L 501.5200, L501.2300, L100.0100, L500.4050 ####[facility] [address] [place], [address] GAP 8 Normal 5-15 [facility] Comment on above: Performed By: #### L 501.5200, L501.2300, L100.0100, L500.4050 ####[facility] [address] [place], [address] GFR/1.73 sq M.predicted among non-blacks MDRD (S/P/Bld) [Vol rate/Area] 98 mL/min/{1.73_m2} Normal >60 [facility] Comment on above: Result Comment: mL/m in/1.73m2 CKD-EPI Creatinine Equation (2020) Performed By: #### L 501.5200, L501.2300, L100.0100, L500.4050 ####[facility] [address] [place], [address] Globulin (S) [Mass/Vol] 2.4 g/dL Normal 2.2-4.2 [facility] Comment on above: Performed By: #### L 501.5200, L501.2300, L100.0100, L500.4050 ####[facility] [address] [place], [address] Glucose [Mass/Vol] 167 mg/dL High 70-99 [facility] Comment on above: Performed By: #### L 501.5200, L501.2300, L100.0100, L500.4050 ####[facility] [address] [place], [address] Potassium [Moles/Vol] 3.3 mmol/L Normal 3.3-5.1 [facility] Comment on above: Performed By: #### L 501.5200, L501.2300, L100.0100, L500.4050 ####[facility] [address] [place], [address] Sodium [Moles/Vol] 132 mmol/L Low 133-145 [facility] Comment on above: Performed By: #### L 501.5200, L501.2300, L100.0100, L500.4050 ####[facility] [address] [place], [address] T PROT 4.9 g/dL Low 5.9-8.4 [facility] Comment on above: Performed By: #### L 501.5200, L501.2300, L100.0100, L500.4050 ####[facility] [address] [place], [address] Urea nitrogen [Mass/Vol] 9 mg/dL Normal 4-19 [facility] Comment on above: Performed By: #### L 501.5200, L501.2300, L100.0100, L500.4050 ####[facility] [address] [place], [address] Magnesiumon 11-30-2024 Magnesium [Mass/Vol] 1.9 mg/dL Normal 1.5-2.2 [facility] Comment on above: Performed By: #### L 501.5200, L501.2300, L100.0100, L500.4050 ####[facility] [address] [place], [address] Phosphoruson 11-30-2024 Phosphate [Mass/Vol] 1.8 mg/dL Low 2.7-4.5 [facility] Comment on above: Performed By: #### L 501.5200, L501.2300, L100.0100, L500.4050 ####[facility] [address] [place], [address] Platelet estimateOrdered By: Hill Acuña on 11-30-2024 Platelets LM Ql (Bld) MOD DEC ADEQ [facility] Serum or plasma vancomycin m easurement (mass/volume)Ordered By: Kathie Lemos on 11-30-2024 Vancomycin [Mass/Vol] 17.7 ug/mL High 0.0-15.0 [facility] Vancomycin, Random Levelon 0 11-30-2024 VANCO, RANDOM 17.7 ug/mL High 0.0-15.0 [facility] Comment on above: Result Comment: VANC OMYCIN STANDARD DRUG THERAPY: CRITICAL VALUE IS > 15.0 mg/LVANCOMYCIN HIGH INTENSITY THERAPY: CRITICAL VALUE IS > 20.0 mg/LPLEASE CONTACT PHARMACY SERVICES (#4573) FOR INTERPRETATIONOF RESULTS. THIS RESULT DOES NOT REPRESENT A PEAK OR TROUGHLEVEL FOR THIS DRUG. Performed By: #### L 501.8850 ####[facility] [address] [facility] [address] Vancomycin, Trough Levelon 0 11-30-2024 VANCO, TROUGH 27.2 ug/mL High 5.0-15.0 [facility] Comment on above: Order Comment: Comme nts: Trough to be drawn 30 mins prior to scheduled [id number] Result Comment: Eleazar mmended goal trough ranges [...] therapy recommended for serious lifethreatening infections include:- Avnhhdgpmj-Axaimgxmefcq-Onmqinqwb (Ventilator/Healtcare Associated)-SepsisPLEASE CONTACT PHARMACY SERVICES (#8130) FOR INTERPRETATIONOF RESULTS. Performed By: #### L 501.8820 ####[facility] [address] [facility] [id number] Bedside Glucoseon 11-29-2024 FINGERSTICK GLU 251 mg/dL High 74-106 [facility] Comment on above: Result Comment: BRISA GEMENT OF PATIENT CARE PER NURSING PROTOCOL Performed By: #### L 501.080 ####[facility] [address] [facility] [address] FINGERSTICK GLU 210 mg/dL High 74-106 [facility] Comment on above: Result Comment: BRISA GEMENT OF PATIENT CARE PER NURSING PROTOCOL Performed By: #### L 501.080 ####[facility] [address] [place], [address] FINGERSTICK GLU 186 mg/dL High 74-106 [facility] Comment on above: Result Comment: RBISA GEMENT OF PATIENT CARE PER NURSING PROTOCOL Performed By: #### L 501.080 ####[facility] [address] [place], [address] FINGERSTICK GLU 145 mg/dL High 74-106 [facility] Comment on above: Result Comment: BRISA GEMENT OF PATIENT CARE PER NURSING PROTOCOL Performed By: #### L 501.080 ####[facility] [address] [place], [address] CBC W/Diff, Automatedon 11-03 Absolute Lymph 1.35 X10 3/uL Normal 0.83-4.51 [facility] Comment on above: Performed By: #### L 100.0100, L501.5200, L500.4050, L300.3900 ####[facility] [address] [place], [address] Absolute Neut 8.1 X10 3/uL High 2.0-7.7 [facility] Comment on above: Performed By: #### L 100.0100, L501.5200, L500.4050, L300.3900 ####[facility] [address] [place], [address] Basophils/100 WBC (Bld) 0.4 % Normal 0-1 [facility] Comment on above: Performed By: #### L 100.0100, L501.5200, L500.4050, L300.3900 ####[facility] [address] [place], [address] Eosinophils/100 WBC (Bld) 2.5 % Normal 0-5 [facility] Comment on above: Performed By: #### L 100.0100, L501.5200, L500.4050, L300.3900 ####[facility] [address] [place], [address] Erythrocyte distribution width (RBC) [Ratio] 16.5 % High 11.6-14.6 [facility] Comment on above: Performed By: #### L 100.0100, L501.5200, L500.4050, L300.3900 ####[facility] [address] [place], [address] Hematocrit (Bld) [Volume fraction] 22.7 % Low 40-54 [facility] Comment on above: Performed By: #### L 100.0100, L501.5200, L500.4050, L300.3900 ####[facility] [address] [place], [address] Hemoglobin (Bld) [Mass/Vol] 7.6 g/dL Low 13.0-16.5 [facility] Comment on above: Performed By: #### L 100.0100, L501.5200, L500.4050, L300.3900 ####[facility] [address] [place], [address] IG% 0.500 Normal 0.0-0.9 [facility] Comment on above: Result Comment: IG% - Immature Granulocytes (promyelocytes, myelocytes andmetamyelocytes) > 1% indicates that a LEFT SHIFT is Present. Performed By: #### L 100.0100, L501.5200, L500.4050, L300.3900 ####[facility] [address] [place], [address] Lymphocytes/100 WBC (Bld) 12.4 % Low 19-41 [facility] Comment on above: Performed By: #### L 100.0100, L501.5200, L500.4050, L300.3900 ####[facility] [facility] [address] [place], [address] MCH (RBC) [Entitic mass] 30.3 pg Normal 27.0-32.0 [facility] Comment on above: Performed By: #### L 100.0100, L501.5200, L500.4050, L300.3900 ####[facility] [address] [place], [address] MCHC (RBC) [Mass/Vol] 33.5 g/dL Normal 32-36 [facility] Comment on above: Performed By: #### L 100.0100, L501.5200, L500.4050, L300.3900 ####[facility] [address] [place], [address] MCV (RBC) [Entitic vol] 90.4 fL Normal 80-94 [facility] Comment on above: Performed By: #### L 100.0100, L501.5200, L500.4050, L300.3900 ####[facility] [address] [place], [address] Monocytes/100 WBC (Bld) 10.4 % High 0-10 [facility] Comment on above: Performed By: #### L 100.0100, L501.5200, L500.4050, L300.3900 ####[facility] [address] [place], [address] Neutrophils/100 WBC (Bld) 73.8 % High 47-70 [facility] Comment on above: Performed By: #### L 100.0100, L501.5200, L500.4050, L300.3900 ####[facility] [address] [place], [address] Nucleated RBC (Bld) [#/Vol] 0 10*3/uL Normal 0-5 [facility] Comment on above: Performed By: #### L 100.0100, L501.5200, L500.4050, L300.3900 ####[facility] [address] [place], [address] Platelet mean volume (Bld) [Entitic vol] 12.7 fL High 6.2-12.0 [facility] Comment on above: Performed By: #### L 100.0100, L501.5200, L500.4050, L300.3900 ####[facility] [address] [place], [address] Platelets (Bld) [#/Vol] 114 10*3/uL Low 150-450 [facility] Comment on above: Performed By: #### L 100.0100, L501.5200, L500.4050, L300.3900 ####[facility] [address] [place], [address] RBC (Bld) [#/Vol] 2.51 10*6/uL Low 4.6-6.2 [facility] Comment on above: Performed By: #### L 100.0100, L501.5200, L500.4050, L300.3900 ####[facility] [address] [place], [address] RDW SD 54.1 fl High 35.1-43.9 [facility] Comment on above: Performed By: #### L 100.0100, L501.5200, L500.4050, L300.3900 ####[facility] [address] [place], [address] WBC (Bld) [#/Vol] 10.9 10*3/uL Normal 4.4-11.0 [facility] Comment on above: Performed By: #### L 100.0100, L501.5200, L500.4050, L300.3900 ####[facility] [address] [place], [address] Comprehensive Metabolic [facility] 11-29-2024 Albumin [Mass/Vol] 2.6 g/dL Low 3.5-5.0 [facility] Comment on above: Performed By: #### L 100.0100, L501.5200, L500.4050, L300.3900 ####[facility] [address] [place], [address] Albumin/Globulin [Mass ratio] 1.1 {ratio} Normal 0.9-2.4 [facility] Comment on above: Performed By: #### L 100.0100, L501.5200, L500.4050, L300.3900 ####[facility] [address] [place], [address] ALK PHOS 172 U/L High 40-129 [facility] Comment on above: Performed By: #### L 100.0100, L501.5200, L500.4050, L300.3900 ####[facility] [address] [place], [address] ALT [Catalytic activity/Vol] 30 U/L Normal <=46 [facility] Comment on above: Performed By: #### L 100.0100, L501.5200, L500.4050, L300.3900 ####[facility] [address] [place], [address] AST [Catalytic activity/Vol] 39 U/L High <=37 [facility] Comment on above: Performed By: #### L 100.0100, L501.5200, L500.4050, L300.3900 ####[facility] [address] [place], [address] Bilirubin [Mass/Vol] 1.20 mg/dL Normal 0.00-1.30 [facility] Comment on above: Performed By: #### L 100.0100, L501.5200, L500.4050, L300.3900 ####[facility] [address] [place], [address] BUN/CRE 13.8 RATIO Normal 10-20 [facility] Comment on above: Performed By: #### L 100.0100, L501.5200, L500.4050, L300.3900 ####[facility] [address] [place], [address] Calcium [Mass/Vol] 7.7 mg/dL Normal 7.6-11.0 [facility] Comment on above: Performed By: #### L 100.0100, L501.5200, L500.4050, L300.3900 ####[facility] [address] [place], [address] Chloride [Moles/Vol] 107 mmol/L Normal 98-108 [facility] Comment on above: Performed By: #### L 100.0100, L501.5200, L500.4050, L300.3900 ####[facility] [address] [place], [address] CO2 [Moles/Vol] 17.9 mmol/L Low 21.0-32.0 [facility] Comment on above: Performed By: #### L 100.0100, L501.5200, L500.4050, L300.3900 ####[facility] [address] [place], [address] Creatinine [Mass/Vol] 0.96 mg/dL Normal 0.70-1.20 [facility] Comment on above: Performed By: #### L 100.0100, L501.5200, L500.4050, L300.3900 ####[facility] [address] [place], [address] ECRCL 98.35 ml/min Normal 50-250 [facility] Comment on above: Performed By: #### L 100.0100, L501.5200, L500.4050, L300.3900 ####[facility] [address] [place], [address] GAP 9 Normal 5-15 [facility] Comment on above: Performed By: #### L 100.0100, L501.5200, L500.4050, L300.3900 ####[facility] [address] [place], [address] GFR/1.73 sq M.predicted among non-blacks MDRD (S/P/Bld) [Vol rate/Area] 92 mL/min/{1.73_m2} Normal >60 [facility] Comment on above: Result Comment: mL/m in/1.73m2 CKD-EPI Creatinine Equation (2020) Performed By: #### L 100.0100, L501.5200, L500.4050, L300.3900 ####[facility] [address] [place], [address] Globulin (S) [Mass/Vol] 2.3 g/dL Normal 2.2-4.2 [facility] Comment on above: Performed By: #### L 100.0100, L501.5200, L500.4050, L300.3900 ####[facility] [address] [place], [address] Glucose [Mass/Vol] 144 mg/dL High 70-99 [facility] Comment on above: Performed By: #### L 100.0100, L501.5200, L500.4050, L300.3900 ####[facility] [address] [place], [address] Potassium [Moles/Vol] 3.6 mmol/L Normal 3.3-5.1 [facility] Comment on above: Performed By: #### L 100.0100, L501.5200, L500.4050, L300.3900 ####[facility] [address] [place], [address] Sodium [Moles/Vol] 134 mmol/L Normal 133-145 [facility] Comment on above: Performed By: #### L 100.0100, L501.5200, L500.4050, L300.3900 ####[facility] [address] [place], [address] T PROT 4.9 g/dL Low 5.9-8.4 [facility] Comment on above: Performed By: #### L 100.0100, L501.5200, L500.4050, L300.3900 ####[facility] [address] [place], [address] Urea nitrogen [Mass/Vol] 13 mg/dL Normal 4-19 [facility] Comment on above: Performed By: #### L 100.0100, L501.5200, L500.4050, L300.3900 ####[facility] [address] [place], [address] Magnesiumon 11-29-2024 Magnesium [Mass/Vol] 1.1 mg/dL Low 1.5-2.2 [facility] Comment on above: Performed By: #### L 100.0100, L501.5200, L500.4050, L300.3900 ####[facility] [address] [place], [address] Prothrombin Time w/INRon INR Coag (PPP) [Relative time] 1.8 {INR} Normal [facility] Comment on above: Performed By: #### L 100.0100, L501.5200, L500.4050, L300.3900 ####[facility] [address] [place], [address] PT Coag (PPP) [Time] 21.1 s High 11.7-14.9 [facility] Comment on above: Performed By: #### L 100.0100, L501.5200, L500.4050, L300.3900 ####[facility] [address] [place], [address] Prothrombin timeOrdered By: Kathie Lemos on 11-29-2024 PT Coag (PPP) [Time] 21.1 s High 11.7-14.9 [facility] Abdomen/Pelvis W IV Cont ONL Yon 11-28-2024 Abdomen/Pelvis W IV Cont ONLY Normal [facility] Ammoniaon 11-28-2024 Ammonia (P) [Moles/Vol] 68.4 umol/L High 16-60 [facility] Comment on above: Result Comment: Hemo lysis present, Results??could be affected.?? Performed By: #### L 503.5510 ####[facility] [address] [place], [address] Basic Metabolic Profile (BMP )on 11-28-2024 BUN/CRE 11.4 RATIO Normal 10-20 [facility] Comment on above: Performed By: #### L 500.3400, L501.2450, L500.2500, L100.0100 ####[facility] [address] [place], [address] Calcium [Mass/Vol] 8.3 mg/dL Normal 7.6-11.0 [facility] Comment on above: Performed By: #### L 500.3400, L501.2450, L500.2500, L100.0100 ####[facility] [address] [place], [address] Chloride [Moles/Vol] 107 mmol/L Normal 98-108 [facility] Comment on above: Performed By: #### L 500.3400, L501.2450, L500.2500, L100.0100 ####[facility] [address] [place], [address] CO2 [Moles/Vol] 17.7 mmol/L Low 21.0-32.0 [facility] Comment on above: Performed By: #### L 500.3400, L501.2450, L500.2500, L100.0100 ####[facility] [address] [place], [address] Creatinine [Mass/Vol] 1.09 mg/dL Normal 0.70-1.20 [facility] Comment on above: Performed By: #### L 500.3400, L501.2450, L500.2500, L100.0100 ####[facility] [address] [place], [address] ECRCL 85.91 ml/min Normal 50-250 [facility] Comment on above: Performed By: #### L 500.3400, L501.2450, L500.2500, L100.0100 ####[facility] [address] [place], [address] GAP 12 Normal 5-15 [facility] Comment on above: Performed By: #### L 500.3400, L501.2450, L500.2500, L100.0100 ####[facility] [address] [place], [address] GFR/1.73 sq M.predicted among non-blacks MDRD (S/P/Bld) [Vol rate/Area] 79 mL/min/{1.73_m2} Normal >60 [facility] Comment on above: Result Comment: mL/m in/1.73m2 CKD-EPI Creatinine Equation (2020) Performed By: #### L 500.3400, L501.2450, L500.2500, L100.0100 ####[facility] [address] [place], [address] Glucose [Mass/Vol] 157 mg/dL High 70-99 [facility] Comment on above: Performed By: #### L 500.3400, L501.2450, L500.2500, L100.0100 ####[facility] [address] [place], [address] Potassium [Moles/Vol] 3.8 mmol/L Normal 3.3-5.1 [facility] Comment on above: Performed By: #### L 500.3400, L501.2450, L500.2500, L100.0100 ####[facility] [address] [place], [address] Sodium [Moles/Vol] 137 mmol/L Normal 133-145 [facility] Comment on above: Performed By: #### L 500.3400, L501.2450, L500.2500, L100.0100 ####[facility] [address] [place], [address] Urea nitrogen [Mass/Vol] 12 mg/dL Normal 4-19 [facility] Comment on above: Performed By: #### L 500.3400, L501.2450, L500.2500, L100.0100 ####[facility] [address] [place], [address] Bedside Glucoseon 11-28-2024 FINGERSTICK GLU 164 mg/dL High 74-106 [facility] Comment on above: Result Comment: BRISA MOROCHO OF PATIENT CARE PER NURSING PROTOCOL Performed By: #### L 501.080 ####[facility] [address] [place], [address] Bilirubin Test strip Ql (U)O rdered By: Rachel Joiner on 11-28-2024 Bilirubin Ql (U) Negative Negative [facility] Bilirubin directOrdered By: Rachel Joiner on 11-28-2024 Bilirubin.direct [Mass/Vol] 0.72 mg/dL High 0.00-0.30 [facility] CBC W/Diff, Automatedon 11-03 Absolute Lymph 1.11 X10 3/uL Normal 0.83-4.51 [facility] Comment on above: Performed By: #### L 500.3400, L501.2450, L500.2500, L100.0100 ####[facility] [address] [place], [address] Absolute Neut 9.2 X10 3/uL High 2.0-7.7 [facility] Comment on above: Performed By: #### L 500.3400, L501.2450, L500.2500, L100.0100 ####[facility] [address] [place], [address] Basophils/100 WBC (Bld) 0.2 % Normal 0-1 [facility] Comment on above: Performed By: #### L 500.3400, L501.2450, L500.2500, L100.0100 ####[facility] [address] [place], [address] Eosinophils/100 WBC (Bld) 1.8 % Normal 0-5 [facility] Comment on above: Performed By: #### L 500.3400, L501.2450, L500.2500, L100.0100 ####[facility] [address] [place], [address] Erythrocyte distribution width (RBC) [Ratio] 16.5 % High 11.6-14.6 [facility] Comment on above: Performed By: #### L 500.3400, L501.2450, L500.2500, L100.0100 ####[facility] [address] [place], [address] Hematocrit (Bld) [Volume fraction] 26.0 % Low 40-54 [facility] Comment on above: Performed By: #### L 500.3400, L501.2450, L500.2500, L100.0100 ####[facility] [address] [place], [address] Hemoglobin (Bld) [Mass/Vol] 8.4 g/dL Low 13.0-16.5 [facility] Comment on above: Performed By: #### L 500.3400, L501.2450, L500.2500, L100.0100 ####[facility] [address] [place], [address] IG% 0.300 Normal 0.0-0.9 [facility] Comment on above: Result Comment: IG% - Immature Granulocytes (promyelocytes, myelocytes andmetamyelocytes) > 1% indicates that a LEFT SHIFT is Present. Performed By: #### L 500.3400, L501.2450, L500.2500, L100.0100 ####[facility] [address] [place], [address] Lymphocytes/100 WBC (Bld) 9.5 % Low 19-41 [facility] Comment on above: Performed By: #### L 500.3400, L501.2450, L500.2500, L100.0100 ####[facility] [address] [place], [address] MCH (RBC) [Entitic mass] 30.3 pg Normal 27.0-32.0 [facility] Comment on above: Performed By: #### L 500.3400, L501.2450, L500.2500, L100.0100 ####[facility] [address] [place], [address] MCHC (RBC) [Mass/Vol] 32.3 g/dL Normal 32-36 [facility] Comment on above: Performed By: #### L 500.3400, L501.2450, L500.2500, L100.0100 ####[facility] [address] [place], [address] MCV (RBC) [Entitic vol] 93.9 fL Normal 80-94 [facility] Comment on above: Performed By: #### L 500.3400, L501.2450, L500.2500, L100.0100 ####[facility] [address] [place], [address] Monocytes/100 WBC (Bld) 9.1 % Normal 0-10 [facility] Comment on above: Performed By: #### L 500.3400, L501.2450, L500.2500, L100.0100 ####[facility] [address] [place], [address] Neutrophils/100 WBC (Bld) 79.1 % High 47-70 [facility] Comment on above: Performed By: #### L 500.3400, L501.2450, L500.2500, L100.0100 ####[facility] [address] [place], [address] Nucleated RBC (Bld) [#/Vol] 0 10*3/uL Normal 0-5 [facility] Comment on above: Performed By: #### L 500.3400, L501.2450, L500.2500, L100.0100 ####[facility] [address] [place], [address] Platelet mean volume (Bld) [Entitic vol] 12.4 fL High 6.2-12.0 [facility] Comment on above: Performed By: #### L 500.3400, L501.2450, L500.2500, L100.0100 ####[facility] [address] [place], [address] Platelets (Bld) [#/Vol] 118 10*3/uL Low 150-450 [facility] Comment on above: Performed By: #### L 500.3400, L501.2450, L500.2500, L100.0100 ####[facility] [address] [place], [address] RBC (Bld) [#/Vol] 2.77 10*6/uL Low 4.6-6.2 [facility] Comment on above: Performed By: #### L 500.3400, L501.2450, L500.2500, L100.0100 ####[facility] [address] [place], [address] RDW SD 56.3 fl High 35.1-43.9 [facility] Comment on above: Performed By: #### L 500.3400, L501.2450, L500.2500, L100.0100 ####[facility] [address] [place], [address] WBC (Bld) [#/Vol] 11.7 10*3/uL High 4.4-11.0 [facility] Comment on above: Performed By: #### L 500.3400, L501.2450, L500.2500, L100.0100 ####[facility] [address] [place], [address] Emergency Department Summary on 11-28-2024 Emergency Department Summary Normal [facility] H AND P Exam - Hospitaliston 11-28-2024 H&P Exam - Hospitalist Normal [facility] Ketones Test strip Ql (U)Ord ered By: Rachel Joiner on 11-28-2024 Ketones Ql (U) 5 mg/dl High Negative [facility] Lactic Acidon 11-28-2024 Lactate [Moles/Vol] 3.6 mmol/L Invalid Interpretation Code 0.0-2.0 [facility] Comment on above: Order Comment: DR. Amalia Lindsay FOOT DRAW. CHARTED BY RN Result Comment: Crit ical Result(s) Called at 1851: by: BAKARI HENNESSY. ??Results read back by same. Performed By: #### L 503.6005 ####[facility] [address] [place], [address] Lactate [Moles/Vol] 3.5 mmol/L Invalid Interpretation Code 0.0-2.0 [facility] Comment on above: Order Comment: Y Result Comment: Crit ical Result(s) Called at 1417: by: BAKARI JONES. ??Results read back by same. Performed By: #### L 503.6005 ####[facility] [address] [place], [address] Lipaseon 11-28-2024 Lipase [Catalytic activity/Vol] 54 U/L Normal 13-75 [facility] Comment on above: Result Comment: Siddhartha bhat note:LIPASE revised reference range effective 22.New Lipase methodology. Expected to produce lower valuesthan the previous assay method.NEW Reference Range: 13 - 75 U/L Performed By: #### L 500.3400, L501.2450, L500.2500, L100.0100 ####[facility] [address] [place], [address] Liver Profileon 11-28-2024 Albumin [Mass/Vol] 2.8 g/dL Low 3.5-5.0 [facility] Comment on above: Performed By: #### L 500.3400, L501.2450, L500.2500, L100.0100 ####[facility] [address] [place], [address] ALK PHOS 189 U/L High 40-129 [facility] Comment on above: Performed By: #### L 500.3400, L501.2450, L500.2500, L100.0100 ####[facility] [address] [place], [address] ALT [Catalytic activity/Vol] 31 U/L Normal <=46 [facility] Comment on above: Performed By: #### L 500.3400, L501.2450, L500.2500, L100.0100 ####[facility] [address] [place], [address] AST [Catalytic activity/Vol] 39 U/L High <=37 [facility] Comment on above: Performed By: #### L 500.3400, L501.2450, L500.2500, L100.0100 ####[facility] [address] [place], [address] Bilirubin [Mass/Vol] 1.22 mg/dL Normal 0.00-1.30 [facility] Comment on above: Performed By: #### L 500.3400, L501.2450, L500.2500, L100.0100 ####[facility] [address] [place], [address] Bilirubin.direct [Mass/Vol] 0.72 mg/dL High 0.00-0.30 [facility] Comment on above: Performed By: #### L 500.3400, L501.2450, L500.2500, L100.0100 ####[facility] [address] [place], [address] Globulin (S) [Mass/Vol] 2.6 g/dL Normal 2.2-4.2 [facility] Comment on above: Performed By: #### L 500.3400, L501.2450, L500.2500, L100.0100 ####[facility] [address] [place], [address] T PROT 5.4 g/dL Low 5.9-8.4 [facility] Comment on above: Performed By: #### L 500.3400, L501.2450, L500.2500, L100.0100 ####[facility] [address] [place], [address] Mucus LM Ql (Urine sed)Order ed By: Rachel Joiner on 11-28-2024 Mucus Ql (Urine sed) 0 SEEN /hpf [facility] Nitrite Test strip Ql (U)Ord ered By: Rachel Joiner on 11-28-2024 Nitrite Ql (U) Positive High Negative [facility] Protein Test strip Ql (U)Ord ered By: Rachel Joiner on 11-28-2024 Protein Ql (U) 100 mg/dl High Negative [facility] Squamous epithelial cells de tection in urine sediment by light microscopyOrdered By: Rachel Joiner on 11-28-2024 Epithelial cells.squamous LM Ql (Urine sed) 0-5 SEEN /hpf 0-5 [facility] Urinalysis, Completeon 11-28 BACTERIA 1+ /hpf Normal None Seen [facility] Comment on above: Order Comment: COLOR OF URINE MAY AFFECT DIPSTICK RESULTS.CLEAN CATCH Performed By: #### L 400.0001 ####[facility] [address] [place], [address] EPI,SQUAMOUS 0-5 SEEN Normal 0-5 [facility] Comment on above: Order Comment: COLOR OF URINE MAY AFFECT DIPSTICK RESULTS.CLEAN CATCH Performed By: #### L 400.0001 ####[facility] [address] [place], [address] RBC 50-100 SEEN Normal 0-5 [facility] Comment on above: Order Comment: COLOR OF URINE MAY AFFECT DIPSTICK RESULTS.CLEAN CATCH Performed By: #### L 400.0001 ####[facility] [address] [place], [address] WBC 50-100 SEEN Normal 0-5 [facility] Comment on above: Order Comment: COLOR OF URINE MAY AFFECT DIPSTICK RESULTS.CLEAN CATCH Performed By: #### L 400.0001 ####[facility] [address] [place], [address] Mucus Ql (Urine sed) 0 SEEN Normal [facility] Comment on above: Order Comment: COLOR OF URINE MAY AFFECT DIPSTICK RESULTS.CLEAN CATCH Performed By: #### L 400.0001 ####[facility] [address] [place], [address] Urine clarityOrdered By: Shi Joiner on 11-28-2024 Clarity (U) Cloudy Clear [facility] Urine color determinationOrd ered By: Rachel Joiner on 11-28-2024 Color (U) Willow Yellow [facility] Urine cultureOrdered By: Tyree Lemos on 11-28-2024 Bacteria identified Cx Nom (U) ESBL Klebsiella pneumoniae pne Abnormal [facility] Urine glucose detectionOrder ed By: Rachel Joiner on 11-28-2024 Glucose Ql (U) Normal mg/dl Normal [facility] Urine leukocyte esterase det ection by dipstickOrdered By: Rachel Joiner on 11-28-2024 Leukocyte esterase Test strip Ql (U) 500 /ul High Negative [facility] Urine pHOrdered By: Rachel silva on 11-28-2024 pH (U) 6.5 [pH] 5.0 - 8.0 [facility] Urine sediment bacteria coun t by microscopy (number/high power field)Ordered By: Rachel Joiner on 11-28-2024 Bacteria LM.HPF (Urine sed) [#/Area] 1 /[HPF] None Seen [facility] Urine specific gravity measu rementOrdered By: Rachel Joiner on 11-28-2024 Specific gravity (U) [Rel density] 1.010 1.002-1.030 [facility] Urine urobilinogen measureme ntOrdered By: Rachel Joiner on 11-28-2024 Urobilinogen Ql (U) Normal mg/dl Normal [facility] Venous blood ammonia measure mentOrdered By: Rachel Joiner on 11-28-2024 Ammonia (P) [Moles/Vol] 68.4 umol/L High 16-60 [facility] White blood cell countOrdere d By: Rachel Joiner on 11-28-2024 White blood cell count 50-100 SEEN /hpf 0-5 [facility] Absolute lymphocyte countOrd ered By: Anurag Irene on 11-25-2024 Lymphocytes Auto (Unsp spec) [#/Vol] 0.92 10*3/uL 0.83-4.51 [facility] Anion gap in Serum or Plasma Ordered By: Anurag Irene on 11-25-2024 Anion gap [Moles/Vol] 8 mmol/L 5-15 [facility] Automated lymphocyte count a s percentage of total leukocytesOrdered By: Anurag Irene on 11-25-2024 Lymphocytes/100 WBC Auto (Unsp spec) 16.7 % Low 19-41 [facility] BUN/creatinine ratioOrdered By: Anurag Irene on 11-25-2024 Urea nitrogen/Creatinine [Mass ratio] 9.2 mg/mg Low 10-20 [facility] Basophil percentageOrdered B y: Anurag Irene on 11-25-2024 Basophils/100 WBC (Bld) 0.4 % 0-1 [facility] Bedside Glucoseon 11-25-2024 FINGERSTICK GLU 222 mg/dL High 74-106 [facility] Comment on above: Result Comment: BRISA GEMENT OF PATIENT CARE PER NURSING PROTOCOL Performed By: #### L 501.080 ####[facility] [address] [facility] [address] FINGERSTICK GLU 196 mg/dL High [address] [place] [address] Comment on above: Result Comment: BRISA GEMENT OF PATIENT CARE PER NURSING PROTOCOL Performed By: #### L 501.080 ####[facility] [address] [place], [address] FINGERSTICK GLU 166 mg/dL High [address] [place] [address] Comment on above: Result Comment: BRISA GEMENT OF PATIENT CARE PER NURSING PROTOCOL Performed By: #### L 501.080 ####[facility] [address] [place], [address] FINGERSTICK GLU 209 mg/dL High [address] [place] [address] Comment on above: Result Comment: BRISA GEMENT OF PATIENT CARE PER NURSING PROTOCOL Performed By: #### L 501.080 ####[facility] [address] [facility] [address] Bilirubin, totalOrdered By: Anurag Irene on 11-25-2024 Bilirubin [Mass/Vol] 1.07 mg/dL 0.00-1.30 [facility] CBC W/Diff, Automatedon 11-03 Absolute Lymph 0.92 X10 3/uL Normal 0.83-4.51 [facility] Comment on above: Performed By: #### L 500.4050, L100.0100 ####[facility] [address] [place], [address] Absolute Neut 3.6 X10 3/uL Normal 2.0-7.7 [facility] Comment on above: Performed By: #### L 500.4050, L100.0100 ####[facility] [address] [place], [address] Basophils/100 WBC (Bld) 0.4 % Normal 0-1 [facility] Comment on above: Performed By: #### L 500.4050, L100.0100 ####[facility] [address] [place], [address] Eosinophils/100 WBC (Bld) 4.2 % Normal 0-5 [facility] Comment on above: Performed By: #### L 500.4050, L100.0100 ####[facility] [address] [place], [address] Erythrocyte distribution width (RBC) [Ratio] 15.8 % High 11.6-14.6 [facility] Comment on above: Performed By: #### L 500.4050, L100.0100 ####[facility] [address] [place], [address] Hematocrit (Bld) [Volume fraction] 21.5 % Low 40-54 [facility] Comment on above: Performed By: #### L 500.4050, L100.0100 ####[facility] [address] [place], [address] Hemoglobin (Bld) [Mass/Vol] 7.0 g/dL Low 13.0-16.5 [facility] Comment on above: Performed By: #### L 500.4050, L100.0100 ####[facility] [address] [place], [address] IG% 0.400 Normal 0.0-0.9 [facility] Comment on above: Result Comment: IG% - Immature Granulocytes (promyelocytes, myelocytes andmetamyelocytes) > 1% indicates that a LEFT SHIFT is Present. Performed By: #### L 500.4050, L100.0100 ####[facility] [address] [place], [address] Lymphocytes/100 WBC (Bld) 16.7 % Low 19-41 [facility] Comment on above: Performed By: #### L 500.4050, L100.0100 ####[facility] [address] [place], [address] MCH (RBC) [Entitic mass] 30.3 pg Normal 27.0-32.0 [facility] Comment on above: Performed By: #### L 500.4050, L100.0100 ####[facility] [address] [place], [address] MCHC (RBC) [Mass/Vol] 32.6 g/dL Normal 32-36 [facility] Comment on above: Performed By: #### L 500.4050, L100.0100 ####[facility] [address] [place], [address] MCV (RBC) [Entitic vol] 93.1 fL Normal 80-94 [facility] Comment on above: Performed By: #### L 500.4050, L100.0100 ####[facility] [address] [place], [address] Monocytes/100 WBC (Bld) 12.7 % High 0-10 [facility] Comment on above: Performed By: #### L 500.4050, L100.0100 ####[facility] [address] [place], [address] Neutrophils/100 WBC (Bld) 65.6 % Normal 47-70 [facility] Comment on above: Performed By: #### L 500.4050, L100.0100 ####[facility] [address] [place], [address] Nucleated RBC (Bld) [#/Vol] 0 10*3/uL Normal 0-5 [facility] Comment on above: Performed By: #### L 500.4050, L100.0100 ####[facility] [address] [place], [address] Platelet mean volume (Bld) [Entitic vol] 11.5 fL Normal 6.2-12.0 [facility] Comment on above: Performed By: #### L 500.4050, L100.0100 ####[facility] [address] [place], [address] Platelets (Bld) [#/Vol] 82 10*3/uL Low 150-450 [facility] Comment on above: Performed By: #### L 500.4050, L100.0100 ####[facility] [address] [place], [address] RBC (Bld) [#/Vol] 2.31 10*6/uL Low 4.6-6.2 [facility] Comment on above: Performed By: #### L 500.4050, L100.0100 ####[facility] [address] [place], [address] RDW SD 52.9 fl High 35.1-43.9 [facility] Comment on above: Performed By: #### L 500.4050, L100.0100 ####[facility] [address] [place], [address] WBC (Bld) [#/Vol] 5.5 10*3/uL Normal 4.4-11.0 [facility] Comment on above: Performed By: #### L 500.4050, L100.0100 ####[facility] [address] [place], [address] Carbon dioxide, total [Moles /volume] in Central venous bloodOrdered By: Anurag Irene on 11-25-2024 CO2 [Moles/Vol] 19.3 mmol/L Low 21.0-32.0 [facility] Chloride assayOrdered By: Francois Irene on 11-25-2024 Chloride [Moles/Vol] 108 mmol/L 98-108 [facility] Comprehensive Metabolic Prof ilon 11-25-2024 Albumin [Mass/Vol] 2.7 g/dL Low 3.5-5.0 [facility] Comment on above: Performed By: #### L 500.4050, L100.0100 ####[facility] [address] [place], [address] Albumin/Globulin [Mass ratio] 1.2 {ratio} Normal 0.9-2.4 [facility] Comment on above: Performed By: #### L 500.4050, L100.0100 ####[facility] [address] [place], [address] ALK PHOS 168 U/L High 40-129 [facility] Comment on above: Performed By: #### L 500.4050, L100.0100 ####[facility] [address] [place], [address] ALT [Catalytic activity/Vol] 41 U/L Normal <=46 [facility] Comment on above: Performed By: #### L 500.4050, L100.0100 ####[facility] [address] [place], [address] AST [Catalytic activity/Vol] 60 U/L High <=37 [facility] Comment on above: Performed By: #### L 500.4050, L100.0100 ####[facility] [address] [place], [address] Bilirubin [Mass/Vol] 1.07 mg/dL Normal 0.00-1.30 [facility] Comment on above: Performed By: #### L 500.4050, L100.0100 ####[facility] [address] [place], [address] BUN/CRE 9.2 RATIO Low 10-20 [facility] Comment on above: Performed By: #### L 500.4050, L100.0100 ####[facility] [address] [place], [address] Calcium [Mass/Vol] 8.3 mg/dL Normal 7.6-11.0 [facility] Comment on above: Performed By: #### L 500.4050, L100.0100 ####[facility] [address] [place], [address] Chloride [Moles/Vol] 108 mmol/L Normal 98-108 [facility] Comment on above: Performed By: #### L 500.4050, L100.0100 ####[facility] [address] [place], [address] CO2 [Moles/Vol] 19.3 mmol/L Low 21.0-32.0 [facility] Comment on above: Performed By: #### L 500.4050, L100.0100 ####[facility] [address] [place], [address] Creatinine [Mass/Vol] 0.86 mg/dL Normal 0.70-1.20 [facility] Comment on above: Performed By: #### L 500.4050, L100.0100 ####[facility] [address] [place], [address] ECRCL 110.58 ml/min Normal 50-250 [facility] Comment on above: Performed By: #### L 500.4050, L100.0100 ####[facility] [address] [place], [address] GAP 8 Normal 5-15 [facility] Comment on above: Performed By: #### L 500.4050, L100.0100 ####[facility] [address] [place], [address] GFR/1.73 sq M.predicted among non-blacks MDRD (S/P/Bld) [Vol rate/Area] 100 mL/min/{1.73_m2} Normal >60 [facility] Comment on above: Result Comment: mL/m in/1.73m2 CKD-EPI Creatinine Equation (2020) Performed By: #### L 500.4050, L100.0100 ####[facility] [address] [place], [address] Globulin (S) [Mass/Vol] 2.2 g/dL Normal 2.2-4.2 [facility] Comment on above: Performed By: #### L 500.4050, L100.0100 ####[facility] [address] [place], [address] Glucose [Mass/Vol] 179 mg/dL High 70-99 [facility] Comment on above: Performed By: #### L 500.4050, L100.0100 ####[facility] [address] [place], [address] Potassium [Moles/Vol] 4.2 mmol/L Normal 3.3-5.1 [facility] Comment on above: Performed By: #### L 500.4050, L100.0100 ####[facility] [address] [place], [address] Sodium [Moles/Vol] 135 mmol/L Normal 133-145 [facility] Comment on above: Performed By: #### L 500.4050, L100.0100 ####[facility] [address] [place], [address] T PROT 4.9 g/dL Low 5.9-8.4 [facility] Comment on above: Performed By: #### L 500.4050, L100.0100 ####[facility] [address] [place], [place], [address] Urea nitrogen [Mass/Vol] 8 mg/dL Normal 4-19 [facility] Comment on above: Performed By: #### L 500.4050, L100.0100 ####[facility] [address] [place], [place], [address] Discharge Instructionon 11-03 Discharge Instruction Normal [facility] Eosinophil percentageOrdered By: Anurag Irene on 11-25-2024 Eosinophils/100 WBC (Bld) 4.2 % 0-5 [facility] Erythrocyte distribution wid th ratioOrdered By: Anurag Irene on 11-25-2024 Erythrocyte distribution width (RBC) [Ratio] 15.8 % High 11.6-14.6 [facility] Erythrocyte distribution wid th standard deviationOrdered By: Anurag Irene on 11-25-2024 Erythrocyte distribution width (RBC) [Ratio] 52.9 fl High 35.1-43.9 [facility] Glomerular filtration rate ( GFR) estimation/1.73 sq m using serum, plasma, or whole bOrdered By: Anurag Irene on 11-25-2024 GFR/1.73 sq M.predicted among non-blacks MDRD (S/P/Bld) [Vol rate/Area] 100 mL/min/{1.73_m2} >60 [facility] Glucose measurement at bedsi deOrdered By: Anurag Irene on 11-25-2024 Glucose [Mass/Vol] 222 mg/dL High 74-106 [facility] Hematocrit Auto (Bld) [Volum e fraction]Ordered By: Anurag Irene on 11-25-2024 Hematocrit (Bld) [Volume fraction] 21.5 % Low 40-54 [facility] Hemoglobin measurementOrdere d By: Anurag Irene on 11-25-2024 Hemoglobin (Bld) [Mass/Vol] 7.0 g/dL Low 13.0-16.5 [facility] Immature granulocytes/100 WB C Auto (Bld)Ordered By: Anurag Irene on 11-25-2024 Immature granulocytes/100 WBC (Bld) 0.400 % 0.0-0.9 [facility] MCV (mean corpuscular volume ) determinationOrdered By: Anurag Irene on 11-25-2024 MCV (RBC) [Entitic vol] 93.1 fL 80-94 [facility] Mean corpuscular hemoglobin (MCH) determinationOrdered By: Anurag Irene on 11-25-2024 MCH (RBC) [Entitic mass] 30.3 pg 27.0-32.0 [facility] Monocyte percentageOrdered B y: Anurag Irene on 11-25-2024 Monocytes/100 WBC (Bld) 12.7 % High 0-10 [facility] Neutrophil percentageOrdered By: Anurag Irene on 11-25-2024 Neutrophils/100 WBC (Bld) 65.6 % 47-70 [facility] No Panel InformationOrdered By: nAurag Irene on 11-25-2024 60 U/L High <38 [facility] Platelet countOrdered By: Francois Irene on 11-25-2024 Platelets (Bld) [#/Vol] 82 10*3/uL Low 150-450 [facility] Potassium measurement (mass/ volume)Ordered By: Anurag Irene on 11-25-2024 Potassium (Unsp spec) [Mass/Vol] 4.2 mmol/L 3.3-5.1 [facility] RBC Auto (Bld) [#/Vol]Ordere d By: Anurag Irene on 11-25-2024 RBC (Bld) [#/Vol] 2.31 10*6/uL Low 4.6-6.2 [facility] Serum creatinine measurement (mass/volume)Ordered By: Anurag Irene on 11-25-2024 Creatinine [Mass/Vol] 0.86 mg/dL 0.70-1.20 [facility] Serum globulin measurementOr dered By: Anurag Irene on 11-25-2024 Globulin (S) [Mass/Vol] 2.2 g/dL 2.2-4.2 [facility] Serum glucose measurement (m ass/volume)Ordered By: Anurag Irene on 11-25-2024 Glucose [Mass/Vol] 179 mg/dL High 70-99 [facility] Serum or plasma alanine thomas otransferase (ALT) measurementOrdered By: Anurag Irene on 11-25-2024 ALT [Catalytic activity/Vol] 41 U/L <47 [facility] Serum or plasma albumin roosevelt urement (mass/volume)Ordered By: Anurag Irene on 11-25-2024 Albumin [Mass/Vol] 2.7 g/dL Low 3.5-5.0 [facility] Serum or plasma albumin/glob ulin mass ratioOrdered By: Anurag Irene on 11-25-2024 Albumin/Globulin [Mass ratio] 1.2 {ratio} 0.9-2.4 [facility] Serum or plasma alkaline kendrick sphatase measurementOrdered By: Anurag Irene on 11-25-2024 ALP [Catalytic activity/Vol] 168 U/L High 40-129 [facility] Serum or plasma calcium roosevelt urement (mass/volume)Ordered By: Anurag Irene on 11-25-2024 Calcium [Mass/Vol] 8.3 mg/dL 7.6-11.0 [facility] Serum or plasma urea nitroge n measurement (mass/volume)Ordered By: Anurag Irene on 11-25-2024 Urea nitrogen [Mass/Vol] 8 mg/dL 4-19 [facility] Sodium levelOrdered By: Marni Irene on 11-25-2024 Sodium [Moles/Vol] 135 mmol/L 133-145 [facility] Total proteinOrdered By: [place] Irene on 11-25-2024 Protein [Mass/Vol] 4.9 g/dL Low 5.9-8.4 [facility] White blood cell (WBC) count Ordered By: Anurag Irene on 11-25-2024 WBC (Bld) [#/Vol] 5.5 10*3/uL 4.4-11.0 [facility] BRCon 11-24-2024 RC Normal [facility] Comment on above: Result Comment: [id number] OP RC TRANSFUSED 11/24/24 1327 Performed By: #### B RC, BTS ####[facility] [address] [place], [address] Bedside Glucoseon 11-24-2024 FINGERSTICK GLU 236 mg/dL High [address] [place] [address] Comment on above: Result Comment: BRISA GEMENT OF PATIENT CARE PER NURSING PROTOCOL Performed By: #### L 501.080 ####[facility] [address] [place], [address] FINGERSTICK GLU 187 mg/dL High [address] [place] [address] Comment on above: Result Comment: BRISA GEMENT OF PATIENT CARE PER NURSING PROTOCOL Performed By: #### L 501.080 ####[facility] [address] [place], [address] FINGERSTICK GLU 242 mg/dL High [address] [place] [address] Comment on above: Result Comment: BRISA GEMENT OF PATIENT CARE PER NURSING PROTOCOL Performed By: #### L 501.080 ####[facility] [address] [place], [address] FINGERSTICK GLU 184 mg/dL High [facility]106 [facility] Comment on above: Result Comment: BRISA GEMENT OF PATIENT CARE PER NURSING PROTOCOL Performed By: #### L 501.080 ####[facility] [address] [place], [address] FINGERSTICK GLU 186 mg/dL High [address] [place] [address] Comment on above: Result Comment: BRISA GEMENT OF PATIENT CARE PER NURSING PROTOCOL Performed By: #### L 501.080 ####[facility] [address] [place], [address] Blood manual differential co mment interpretation (narrative result)Ordered By: Anurag Irene on 11-24-2024 Manual differential comment Marco Antonio (Bld) [Interp] SCANNED [facility] CBC W/Diff, Automatedon 11-03 PLT EST MOD DEC Normal ADEQ [facility] Comment on above: Performed By: #### L 500.4050, L100.0100 ####[facility] [address] [place], [address] SMEAR COMMENT SCANNED Normal [facility] Comment on above: Performed By: #### L 500.4050, L100.0100 ####[facility] [address] [place], [address] Comprehensive Metabolic Prof ilon 11-24-2024 Albumin [Mass/Vol] 2.7 g/dL Low 3.5-5.0 [facility] Comment on above: Performed By: #### L 500.4050, L100.0100 ####[facility] [address] [place], [address] Albumin/Globulin [Mass ratio] 1.2 {ratio} Normal 0.9-2.4 [facility] Comment on above: Performed By: #### L 500.4050, L100.0100 ####[facility] [address] [place], [address] ALK PHOS 176 U/L High 40-129 [facility] Comment on above: Performed By: #### L 500.4050, L100.0100 ####[facility] [address] [place], [address] ALT [Catalytic activity/Vol] 45 U/L Normal <=46 [facility] Comment on above: Performed By: #### L 500.4050, L100.0100 ####[facility] [address] [place], [address] AST [Catalytic activity/Vol] 72 U/L High <=37 [facility] Comment on above: Performed By: #### L 500.4050, L100.0100 ####[facility] [address] [place], [address] Bilirubin [Mass/Vol] 0.97 mg/dL Normal 0.00-1.30 [facility] Comment on above: Performed By: #### L 500.4050, L100.0100 ####[facility] [address] [place], [address] BUN/CRE 12.2 RATIO Normal 10-20 [facility] Comment on above: Performed By: #### L 500.4050, L100.0100 ####[facility] [address] [place], [address] Calcium [Mass/Vol] 8.4 mg/dL Normal 7.6-11.0 [facility] Comment on above: Performed By: #### L 500.4050, L100.0100 ####[facility] [address] [place], [address] Chloride [Moles/Vol] 107 mmol/L Normal 98-108 [facility] Comment on above: Performed By: #### L 500.4050, L100.0100 ####[facility] [address] [place], [address] CO2 [Moles/Vol] 18.9 mmol/L Low 21.0-32.0 [facility] Comment on above: Performed By: #### L 500.4050, L100.0100 ####[facility] [address] [place], [address] Creatinine [Mass/Vol] 0.86 mg/dL Normal 0.70-1.20 [facility] Comment on above: Performed By: #### L 500.4050, L100.0100 ####[facility] [address] [place], [address] ECRCL 110.58 ml/min Normal 50-250 [facility] Comment on above: Performed By: #### L 500.4050, L100.0100 ####[facility] [address] [place], [address] GAP 9 Normal 5-15 [facility] Comment on above: Performed By: #### L 500.4050, L100.0100 ####[facility] [address] [place], [address] GFR/1.73 sq M.predicted among non-blacks MDRD (S/P/Bld) [Vol rate/Area] 100 mL/min/{1.73_m2} Normal >60 [facility] Comment on above: Result Comment: mL/m in/1.73m2 CKD-EPI Creatinine Equation (2020) Performed By: #### L 500.4050, L100.0100 ####[facility] [address] [place], [address] Globulin (S) [Mass/Vol] 2.3 g/dL Normal 2.2-4.2 [facility] Comment on above: Performed By: #### L 500.4050, L100.0100 ####[facility] [address] [place], [address] Glucose [Mass/Vol] 198 mg/dL High 70-99 [facility] Comment on above: Performed By: #### L 500.4050, L100.0100 ####[facility] [address] [place], [address] Potassium [Moles/Vol] 4.1 mmol/L Normal 3.3-5.1 [facility] Comment on above: Performed By: #### L 500.4050, L100.0100 ####[facility] [address] [place], [address] Sodium [Moles/Vol] 135 mmol/L Normal 133-145 [facility] Comment on above: Performed By: #### L 500.4050, L100.0100 ####[facility] [address] [place], [address] T PROT 5.1 g/dL Low 5.9-8.4 [facility] Comment on above: Performed By: #### L 500.4050, L100.0100 ####[facility] [address] [place], [address] Urea nitrogen [Mass/Vol] 11 mg/dL Normal 4-19 [facility] Comment on above: Performed By: #### L 500.4050, L100.0100 ####[facility] [address] [place], [address] Platelet estimateOrdered By: Anurag Irene on 11-24-2024 Platelets LM Ql (Bld) MOD DEC ADEQ [facility] Prothrombin Time w/INRon INR Coag (PPP) [Relative time] 1.9 {INR} Normal [facility] Comment on above: Performed By: #### L 300.3900 ####[facility] [address] [place], [address] PT Coag (PPP) [Time] 22.6 s High 11.7-14.9 [facility] Comment on above: Performed By: #### L 300.3900 ####[facility] [address] [place], [address] Prothrombin timeOrdered By: Anurag Irene on 11-24-2024 PT Coag (PPP) [Time] 22.6 s High 11.7-14.9 [facility] Type AND Screenon 11-24-2024 Ab SCREEN GEL Negative Normal [facility] Comment on above: Order Comment: CMV N EG? NNumber of units to transfuse: 1Reason for Ordering Blood: AcuteAre the blood/blood products to be transfused? YIs the patient having/had surgery? NNWhen ReadyNYA Performed By: #### B RC, BTS ####[facility] [address] [place], [address] Bedside Glucoseon 11-23-2024 FINGERSTICK GLU 206 mg/dL High 74-106 [facility] Comment on above: Result Comment: BRISA GEMENT OF PATIENT CARE PER NURSING PROTOCOL Performed By: #### L 501.080 ####[facility] [address] [place], [address] FINGERSTICK GLU 213 mg/dL High 74-106 [facility] Comment on above: Result Comment: BRISA GEMENT OF PATIENT CARE PER NURSING PROTOCOL Performed By: #### L 501.080 ####[facility] [address] [place], [address] FINGERSTICK GLU 155 mg/dL High 74-106 [facility] Comment on above: Result Comment: BRISA GEMENT OF PATIENT CARE PER NURSING PROTOCOL Performed By: #### L 501.080 ####[facility] [address] [place], [address] FINGERSTICK GLU 182 mg/dL High 74-106 [facility] [facility] Comment on above: Result Comment: BRISA GEMENT OF PATIENT CARE PER NURSING PROTOCOL Performed By: #### L 501.080 ####[facility] [address] [place], [address] CBC W/Diff, Automatedon 11-03 PATH REV Reviewed Normal [facility] Comment on above: Result Comment: SEE REPORT IN PATIENT'S EMR AMENDED REPORT 11/23/24 1319 PATH REV previously reported as: December tai Performed By: #### L 500.4050, L100.0100, L501.2450 ####[facility] [address] [place], [address] HIP, UNI W/ Pelvis 2-3 Views on 11-23-2024 HIP, UNI W/ Pelvis 2-3 Views Normal [facility] Prothrombin Time w/INRon INR Coag (PPP) [Relative time] 2.1 {INR} Normal [facility] Comment on above: Performed By: #### L 300.3900 ####[facility] [address] [place], [address] PT Coag (PPP) [Time] 24.0 s High 11.7-14.9 [facility] Comment on above: Performed By: #### L 300.3900 ####[facility] [address] [place], [address] Urine Cultureon 11-23-2024 URC Normal [facility] Comment on above: Performed By: #### M 100.2200 ####[facility] [address] [place], [address] Bedside Glucoseon 11-22-2024 FINGERSTICK GLU 228 mg/dL High [address] [place] [address] Comment on above: Result Comment: BRISA GEMENT OF PATIENT CARE PER NURSING PROTOCOL Performed By: #### L 501.080 ####[facility] [address] [place], [address] FINGERSTICK GLU 187 mg/dL High [address] [place] [address] Comment on above: Result Comment: BRISA GEMENT OF PATIENT CARE PER NURSING PROTOCOL Performed By: #### L 501.080 ####[facility] [address] [place], [address] FINGERSTICK GLU 170 mg/dL High [address] [place] [address] Comment on above: Result Comment: BRISA GEMENT OF PATIENT CARE PER NURSING PROTOCOL Performed By: #### L 501.080 ####[facility] [address] [place], [address] FINGERSTICK GLU 163 mg/dL High [address] [place] [address] Comment on above: Result Comment: BRISA GEMENT OF PATIENT CARE PER NURSING PROTOCOL Performed By: #### L 501.080 ####[facility] [address] [place], [address] Bilirubin directOrdered By: Anurag Irene on 11-22-2024 Bilirubin.direct [Mass/Vol] 0.73 mg/dL High 0.00-0.30 [facility] Bilirubin, Directon 11-23-19 Bilirubin.direct [Mass/Vol] 0.73 mg/dL High 0.00-0.30 [facility] Comment on above: Performed By: #### L 501.4700, L500.4050 ####[facility] [address] [place], [address] Comprehensive Metabolic Prof ilon 11-22-2024 Albumin [Mass/Vol] 2.8 g/dL Low 3.5-5.0 [facility] Comment on above: Performed By: #### L 501.4700, L500.4050 ####[facility] [address] [place], [address] Albumin/Globulin [Mass ratio] 1.5 {ratio} Normal 0.9-2.4 [facility] Comment on above: Performed By: #### L 501.4700, L500.4050 ####[facility] [address] [place], [address] ALK PHOS 171 U/L High 40-129 [facility] Comment on above: Performed By: #### L 501.4700, L500.4050 ####[facility] [address] [place], [address] ALT [Catalytic activity/Vol] 41 U/L Normal <=46 [facility] Comment on above: Performed By: #### L 501.4700, L500.4050 ####[facility] [address] [place], [address] AST [Catalytic activity/Vol] 65 U/L High <=37 [facility] Comment on above: Performed By: #### L 501.4700, L500.4050 ####[facility] [address] [place], [address] Bilirubin [Mass/Vol] 1.09 mg/dL Normal 0.00-1.30 [facility] Comment on above: Performed By: #### L 501.4700, L500.4050 ####[facility] [address] [place], [address] BUN/CRE 20.3 RATIO High 10-20 [facility] Comment on above: Performed By: #### L 501.4700, L500.4050 ####[facility] [address] [place], [address] Calcium [Mass/Vol] 8.6 mg/dL Normal 7.6-11.0 [facility] Comment on above: Performed By: #### L 501.4700, L500.4050 ####[facility] [address] [place], [address] Chloride [Moles/Vol] 108 mmol/L Normal 98-108 [facility] Comment on above: Performed By: #### L 501.4700, L500.4050 ####[facility] [address] [place], [address] CO2 [Moles/Vol] 20.0 mmol/L Low 21.0-32.0 [facility] Comment on above: Performed By: #### L 501.4700, L500.4050 ####[facility] [address] [place], [address] Creatinine [Mass/Vol] 1.11 mg/dL Normal 0.70-1.20 [facility] Comment on above: Performed By: #### L 501.4700, L500.4050 ####[facility] [address] [place], [address] ECRCL 85.67 ml/min Normal 50-250 [facility] Comment on above: Performed By: #### L 501.4700, L500.4050 ####[facility] [address] [place], [address] GAP 9 Normal 5-15 [facility] Comment on above: Performed By: #### L 501.4700, L500.4050 ####[facility] [address] [place], [address] GFR/1.73 sq M.predicted among non-blacks MDRD (S/P/Bld) [Vol rate/Area] 77 mL/min/{1.73_m2} Normal >60 [facility] Comment on above: Result Comment: mL/m in/1.73m2 CKD-EPI Creatinine Equation (2020) Performed By: #### L 501.4700, L500.4050 ####[facility] [address] [place], [address] Globulin (S) [Mass/Vol] 1.9 g/dL Low 2.2-4.2 [facility] Comment on above: Performed By: #### L 501.4700, L500.4050 ####[facility] [address] [place], [address] Glucose [Mass/Vol] 158 mg/dL High 70-99 [facility] Comment on above: Performed By: #### L 501.4700, L500.4050 ####[facility] [address] [place], [address] Potassium [Moles/Vol] 4.1 mmol/L Normal 3.3-5.1 [facility] Comment on above: Performed By: #### L 501.4700, L500.4050 ####[facility] [address] [place], [address] Sodium [Moles/Vol] 136 mmol/L Normal 133-145 [facility] Comment on above: Performed By: #### L 501.4700, L500.4050 ####[facility] [address] [place], [address] T PROT 4.7 g/dL Low 5.9-8.4 [facility] Comment on above: Performed By: #### L 501.4700, L500.4050 ####[facility] [address] [place], [address] Urea nitrogen [Mass/Vol] 23 mg/dL High 4-19 [facility] Comment on above: Performed By: #### L 501.4700, L500.4050 ####[facility] [address] [place], [address] Prothrombin Time w/INRon INR Coag (PPP) [Relative time] 2.4 {INR} Normal [facility] Comment on above: Performed By: #### L 300.3900 ####[facility] [address] [place], [address] PT Coag (PPP) [Time] 26.8 s High 11.7-14.9 [facility] Comment on above: Performed By: #### L 300.3900 ####[facility] [address] [place], [address] ALP [Catalytic activity/Vol] Ordered By: Herberth Carlson on 11-21-2024 Serum or plasma alkaline phosphatase measurement 245 U/L High 40-129 [facility] ALT [Catalytic activity/Vol] Ordered By: Herberth Carlson on 11-21-2024 Serum or plasma alanine aminotransferase (ALT) measurement 61 U/L High <47 [facility] Absolute neutrophil countOrd ered By: Herberth Carlson on 11-21-2024 Absolute neutrophil count 6.5 X10^3/uL 2.0-7.7 [facility] Albumin [Mass/Vol]Ordered By : Herberth Carlson on 11-21-2024 Serum or plasma albumin measurement (mass/volume) 2.5 g/dL Low 3.5-5.0 [facility] Albumin/Globulin [Mass ratio ]Ordered By: Herberth Carlson on 11-21-2024 Serum or plasma albumin/globulin mass ratio 0.9 RATIO 0.9-2.4 [facility] Ammoniaon 04-20-2025 Ammonia (P) [Moles/Vol] 17.9 umol/L Normal 16-60 [facility] Comment on above: Result Comment: Hemo lysis present, Results??could be affected.?? Performed By: #### L 503.5510, L500.4050, L300.3900 ####[facility] [address] [place], [address] Anion gap [Moles/Vol]Ordered By: Herberth Carlson on 11-21-2024 Anion gap in Serum or Plasma 11 5-15 [facility] BUN/creatinine ratioOrdered By: [place] Aldo on 11-21-2024 BUN/creatinine ratio 19.1 RATIO 10-20 [facility] Bacteria LM.HPF (Urine sed) [#/Area]Ordered By: Herberthdominique Carlson on 11-21-2024 Urine sediment bacteria count by microscopy (number/high power field) RARE /hpf None Seen [facility] Basophil percentageOrdered B y: Herberth Carlson on 11-21-2024 Basophil percentage 0.2 % 0-1 [facility] Bedside Glucoseon 11-21-2024 FINGERSTICK GLU 171 mg/dL High 74-106 [facility] Comment on above: Result Comment: BRISA GEMENT OF PATIENT CARE PER NURSING PROTOCOL Performed By: #### L 501.080 ####[facility] [address] [place], [address] FINGERSTICK GLU 205 mg/dL High 74-106 [facility] Comment on above: Result Comment: BRISA GEMENT OF PATIENT CARE PER NURSING PROTOCOL Performed By: #### L 501.080 ####[facility] [address] [place], [address] FINGERSTICK GLU 215 mg/dL High 74-106 [facility] Comment on above: Result Comment: BRISA GEMENT OF PATIENT CARE PER NURSING PROTOCOL Performed By: #### L 501.080 ####[facility] [address] [place], [address] FINGERSTICK GLU 195 mg/dL High 74-106 [facility] Comment on above: Result Comment: BRISA MOROCHO OF PATIENT CARE PER NURSING PROTOCOL Performed By: #### L 501.080 ####[facility] [address] [place], [address] Bilirubin Test strip Ql (U)O rdered By: Herberth Carlson on 11-21-2024 Bilirubin Ql (U) Negative Negative [facility] Bilirubin, Directon 11-22-19 25 Bilirubin.direct [Mass/Vol] 0.85 mg/dL High 0.00-0.30 [facility] Comment on above: Performed By: #### L 501.4700 ####[facility] [address] [place], [address] Bilirubin, totalOrdered By: Herberth Carlson on 11-21-2024 Bilirubin, total 1.33 mg/dL High 0.00-1.30 [facility] CBC W/Diff, Automatedon 04- 0 Absolute Lymph 1.33 X10 3/uL Normal 0.83-4.51 [facility] Comment on above: Performed By: #### L 100.0100 ####[facility] [address] [place], [address] Absolute Neut 6.5 X10 3/uL Normal 2.0-7.7 [facility] Comment on above: Performed By: #### L 100.0100 ####[facility] [address] [place], [address] Basophils/100 WBC (Bld) 0.2 % Normal 0-1 [facility] Comment on above: Performed By: #### L 100.0100 ####[facility] [address] [place], [address] Eosinophils/100 WBC (Bld) 7.2 % High 0-5 [facility] Comment on above: Performed By: #### L 100.0100 ####[facility] [address] [place], [address] Erythrocyte distribution width (RBC) [Ratio] 16.8 % High 11.6-14.6 [facility] Comment on above: Performed By: #### L 100.0100 ####[facility] [address] [place], [address] Hematocrit (Bld) [Volume fraction] 24.6 % Low 40-54 [facility] Comment on above: Performed By: #### L 100.0100 ####[facility] [address] [place], [address] Hemoglobin (Bld) [Mass/Vol] 8.3 g/dL Low 13.0-16.5 [facility] Comment on above: Performed By: #### L 100.0100 ####[facility] [address] [place], [address] IG% 0.800 Normal 0.0-0.9 [facility] Comment on above: Result Comment: IG% - Immature Granulocytes (promyelocytes, myelocytes andmetamyelocytes) > 1% indicates that a LEFT SHIFT is Present. Performed By: #### L 100.0100 ####[facility] [address] [place], [address] Lymphocytes/100 WBC (Bld) 13.9 % Low 19-41 [facility] Comment on above: Performed By: #### L 100.0100 ####[facility] [address] [place], [address] MCH (RBC) [Entitic mass] 31.4 pg Normal 27.0-32.0 [facility] Comment on above: Performed By: #### L 100.0100 ####[facility] [address] [place], [address] MCHC (RBC) [Mass/Vol] 33.7 g/dL Normal 32-36 [facility] Comment on above: Performed By: #### L 100.0100 ####[facility] [address] [place], [address] MCV (RBC) [Entitic vol] 93.2 fL Normal 80-94 [facility] Comment on above: Performed By: #### L 100.0100 ####[facility] [address] [place], [address] Monocytes/100 WBC (Bld) 9.2 % Normal 0-10 [facility] Comment on above: Performed By: #### L 100.0100 ####[facility] [address] [place], [address] Neutrophils/100 WBC (Bld) 68.7 % Normal 47-70 [facility] Comment on above: Performed By: #### L 100.0100 ####[facility] [address] [place], [address] Nucleated RBC (Bld) [#/Vol] 0 10*3/uL Normal 0-5 [facility] Comment on above: Performed By: #### L 100.0100 ####[facility] [address] [place], [address] Platelet mean volume (Bld) [Entitic vol] 11.6 fL Normal 6.2-12.0 [facility] Comment on above: Performed By: #### L 100.0100 ####[facility] [address] [place], [address] Platelets (Bld) [#/Vol] 167 10*3/uL Normal 150-450 [facility] Comment on above: Performed By: #### L 100.0100 ####[facility] [address] [place], [address] RBC (Bld) [#/Vol] 2.64 10*6/uL Low 4.6-6.2 [facility] Comment on above: Performed By: #### L 100.0100 ####[facility] [address] [place], [address] RDW SD 57.1 fl High 35.1-43.9 [facility] Comment on above: Performed By: #### L 100.0100 ####[facility] [address] [place], [address] WBC (Bld) [#/Vol] 9.5 10*3/uL Normal 4.4-11.0 [facility] Comment on above: Performed By: #### L 100.0100 ####[facility] [address] [place], [address] CBC-Complete Blood Cnt No Di ffon 11-21-2024 Erythrocyte distribution width (RBC) [Ratio] 16.4 % High 11.6-14.6 [facility] Comment on above: Performed By: #### L 100.0500, L500.4050 ####[facility] [address] [place], [address] Hematocrit (Bld) [Volume fraction] 25.0 % Low 40-54 [facility] Comment on above: Performed By: #### L 100.0500, L500.4050 ####[facility] [address] [place], [address] Hemoglobin (Bld) [Mass/Vol] 8.5 g/dL Low 13.0-16.5 [facility] Comment on above: Performed By: #### L 100.0500, L500.4050 ####[facility] [address] [place], [address] MCH (RBC) [Entitic mass] 31.1 pg Normal 27.0-32.0 [facility] Comment on above: Performed By: #### L 100.0500, L500.4050 ####[facility] [address] [place], [address] MCHC (RBC) [Mass/Vol] 34.0 g/dL Normal 32-36 [facility] Comment on above: Performed By: #### L 100.0500, L500.4050 ####[facility] [address] [place], [address] MCV (RBC) [Entitic vol] 91.6 fL Normal 80-94 [facility] Comment on above: Performed By: #### L 100.0500, L500.4050 ####[facility] [address] [place], [address] Platelet mean volume (Bld) [Entitic vol] 11.7 fL Normal 6.2-12.0 [facility] Comment on above: Performed By: #### L 100.0500, L500.4050 ####[facility] [address] [place], [address] Platelets (Bld) [#/Vol] 119 10*3/uL Low 150-450 [facility] Comment on above: Performed By: #### L 100.0500, L500.4050 ####[facility] [address] [place], [address] RBC (Bld) [#/Vol] 2.73 10*6/uL Low 4.6-6.2 [facility] Comment on above: Performed By: #### L 100.0500, L500.4050 ####[facility] [address] [place], [address] RDW SD 54.6 fl High 35.1-43.9 [facility] Comment on above: Performed By: #### L 100.0500, L500.4050 ####[facility] [address] [place], [address] WBC (Bld) [#/Vol] 7.3 10*3/uL Normal 4.4-11.0 [facility] Comment on above: Performed By: #### L 100.0500, L500.4050 ####[facility] [address] [place], [address] Erythrocyte distribution width (RBC) [Ratio] 16.5 % High 11.6-14.6 [facility] Comment on above: Performed By: #### L 100.0500 ####[facility] [address] [place], [address] Hematocrit (Bld) [Volume fraction] 25.1 % Low 40-54 [facility] Comment on above: Performed By: #### L 100.0500 ####[facility] [address] [place], [address] Hemoglobin (Bld) [Mass/Vol] 8.3 g/dL Low 13.0-16.5 [facility] Comment on above: Performed By: #### L 100.0500 ####[facility] [address] [place], [address] MCH (RBC) [Entitic mass] 31.1 pg Normal 27.0-32.0 [facility] Comment on above: Performed By: #### L 100.0500 ####[facility] [address] [place], [address] MCHC (RBC) [Mass/Vol] 33.1 g/dL Normal 32-36 [facility] Comment on above: Performed By: #### L 100.0500 ####[facility] [address] [place], [address] MCV (RBC) [Entitic vol] 94.0 fL Normal 80-94 [facility] Comment on above: Performed By: #### L 100.0500 ####[facility] [address] [place], [address] Platelet mean volume (Bld) [Entitic vol] 11.4 fL Normal 6.2-12.0 [facility] Comment on above: Performed By: #### L 100.0500 ####[facility] [address] [place], [address] Platelets (Bld) [#/Vol] 103 10*3/uL Low 150-450 [facility] Comment on above: Performed By: #### L 100.0500 ####[facility] [address] [place], [address] RBC (Bld) [#/Vol] 2.67 10*6/uL Low 4.6-6.2 [facility] Comment on above: Performed By: #### L 100.0500 ####[facility] [address] [place], [address] RDW SD 57.1 fl High 35.1-43.9 [facility] Comment on above: Performed By: #### L 100.0500 ####[facility] [address] [place], [address] WBC (Bld) [#/Vol] 7.1 10*3/uL Normal 4.4-11.0 [facility] Comment on above: Performed By: #### L 100.0500 ####[facility] [address] [place], [address] Calcium [Mass/Vol]Ordered By : Herberth Carlson on 11-21-2024 Serum or plasma calcium measurement (mass/volume) 8.7 mg/dL 7.6-11.0 [facility] Carbon dioxide, total [Moles /volume] in Central venous bloodOrdered By: Herberth Carlson on 11-21-2024 Carbon dioxide, total [Moles/volume] in Central venous blood 17.5 mmol/L Low 21.0-32.0 [facility] Chest 1 View (Portable)on Chest 1 View (Portable) Normal [facility] Chloride assayOrdered By: Kaylyn Carlson on 11-21-2024 Chloride assay 103 mmol/L 98-108 [facility] Clarity (U)Ordered By: Ashish Carlson on 11-21-2024 Urine clarity Sl Cldy Clear [facility] Color (U)Ordered By: Herberth Carlson on 11-21-2024 Urine color determination Yellow Yellow [facility] Comprehensive Metabolic Prof ilon 11-21-2024 Albumin [Mass/Vol] 2.8 g/dL Low 3.5-5.0 [facility] Comment on above: Performed By: #### L 100.0500, L500.4050 ####[facility] [address] [place], [address] Albumin/Globulin [Mass ratio] 1.1 {ratio} Normal 0.9-2.4 [facility] Comment on above: Performed By: #### L 100.0500, L500.4050 ####[facility] [address] [place], [address] ALK PHOS 244 U/L High 40-129 [facility] Comment on above: Performed By: #### L 100.0500, L500.4050 ####[facility] [address] [place], [address] ALT [Catalytic activity/Vol] 58 U/L High <=46 [facility] Comment on above: Performed By: #### L 100.0500, L500.4050 ####[facility] [address] [place], [address] AST [Catalytic activity/Vol] 91 U/L High <=37 [facility] Comment on above: Performed By: #### L 100.0500, L500.4050 ####[facility] [address] [place], [address] Bilirubin [Mass/Vol] 1.35 mg/dL High 0.00-1.30 [facility] Comment on above: Performed By: #### L 100.0500, L500.4050 ####[facility] [address] [place], [address] BUN/CRE 21.3 RATIO High 10-20 [facility] Comment on above: Performed By: #### L 100.0500, L500.4050 ####[facility] [address] [place], [address] Calcium [Mass/Vol] 8.9 mg/dL Normal 7.6-11.0 [facility] Comment on above: Performed By: #### L 100.0500, L500.4050 ####[facility] [address] [place], [address] Chloride [Moles/Vol] 103 mmol/L Normal 98-108 [facility] Comment on above: Performed By: #### L 100.0500, L500.4050 ####[facility] [address] [place], [address] CO2 [Moles/Vol] 21.6 mmol/L Normal 21.0-32.0 [facility] Comment on above: Performed By: #### L 100.0500, L500.4050 ####[facility] [address] [place], [address] Creatinine [Mass/Vol] 1.32 mg/dL High 0.70-1.20 [facility] Comment on above: Performed By: #### L 100.0500, L500.4050 ####[facility] [address] [place], [address] ECRCL 72.04 ml/min Normal 50-250 [facility] Comment on above: Performed By: #### L 100.0500, L500.4050 ####[facility] [address] [place], [address] GAP 10 Normal 5-15 [facility] Comment on above: Performed By: #### L 100.0500, L500.4050 ####[facility] [address] [place], [address] GFR/1.73 sq M.predicted among non-blacks MDRD (S/P/Bld) [Vol rate/Area] 63 mL/min/{1.73_m2} Normal >60 [facility] Comment on above: Result Comment: mL/m in/1.73m2 CKD-EPI Creatinine Equation (2020) Performed By: #### L 100.0500, L500.4050 ####[facility] [address] [place], [address] Globulin (S) [Mass/Vol] 2.6 g/dL Normal 2.2-4.2 [facility] Comment on above: Performed By: #### L 100.0500, L500.4050 ####[facility] [address] [place], [address] Glucose [Mass/Vol] 218 mg/dL High 70-99 [facility] Comment on above: Performed By: #### L 100.0500, L500.4050 ####[facility] [address] [place], [address] Potassium [Moles/Vol] 4.0 mmol/L Normal 3.3-5.1 [facility] Comment on above: Performed By: #### L 100.0500, L500.4050 ####[facility] [address] [place], [address] Sodium [Moles/Vol] 134 mmol/L Normal 133-145 [facility] Comment on above: Performed By: #### L 100.0500, L500.4050 ####[facility] [address] [place], [address] T PROT 5.4 g/dL Low 5.9-8.4 [facility] Comment on above: Performed By: #### L 100.0500, L500.4050 ####[facility] [address] [place], [address] Urea nitrogen [Mass/Vol] 28 mg/dL High 4-19 [facility] Comment on above: Performed By: #### L 100.0500, L500.4050 ####[facility] [address] [place], [address] Albumin [Mass/Vol] 2.5 g/dL Low 3.5-5.0 [facility] Comment on above: Performed By: #### L 503.5510, L500.4050, L300.3900 ####[facility] [address] [place], [address] Albumin/Globulin [Mass ratio] 0.9 {ratio} Normal 0.9-2.4 [facility] Comment on above: Performed By: #### L 503.5510, L500.4050, L300.3900 ####[facility] [address] [place], [address] ALK PHOS 245 U/L High 40-129 [facility] Comment on above: Performed By: #### L 503.5510, L500.4050, L300.3900 ####[facility] [address] [place], [address] ALT [Catalytic activity/Vol] 61 U/L High <=46 [facility] Comment on above: Performed By: #### L 503.5510, L500.4050, L300.3900 ####[facility] [address] [place], [address] AST [Catalytic activity/Vol] 112 U/L High <=37 [facility] Comment on above: Result Comment: Hemo lysis present, Results??could be affected.?? Performed By: #### L 503.5510, L500.4050, L300.3900 ####[facility] [address] [place], [address] Bilirubin [Mass/Vol] 1.33 mg/dL High 0.00-1.30 [facility] Comment on above: Performed By: #### L 503.5510, L500.4050, L300.3900 ####[facility] [address] [place], [address] BUN/CRE 19.1 RATIO Normal 10-20 [facility] Comment on above: Performed By: #### L 503.5510, L500.4050, L300.3900 ####[facility] [address] [place], [address] Calcium [Mass/Vol] 8.7 mg/dL Normal 7.6-11.0 [facility] Comment on above: Performed By: #### L 503.5510, L500.4050, L300.3900 ####[facility] [address] [place], [address] Chloride [Moles/Vol] 103 mmol/L Normal 98-108 [facility] Comment on above: Performed By: #### L 503.5510, L500.4050, L300.3900 ####[facility] [address] [place], [address] CO2 [Moles/Vol] 17.5 mmol/L Low 21.0-32.0 [facility] Comment on above: Performed By: #### L 503.5510, L500.4050, L300.3900 ####[facility] [address] [place], [address] Creatinine [Mass/Vol] 1.49 mg/dL High 0.70-1.20 [facility] Comment on above: Performed By: #### L 503.5510, L500.4050, L300.3900 ####[facility] [address] [place], [address] ECRCL 64.65 ml/min Normal 50-250 [facility] Comment on above: Performed By: #### L 503.5510, L500.4050, L300.3900 ####[facility] [address] [place], [address] GAP 11 Normal 5-15 [facility] Comment on above: Performed By: #### L 503.5510, L500.4050, L300.3900 ####[facility] [address] [place], [address] GFR/1.73 sq M.predicted among non-blacks MDRD (S/P/Bld) [Vol rate/Area] 54 mL/min/{1.73_m2} Low >60 [facility] Comment on above: Result Comment: mL/m in/1.73m2 CKD-EPI Creatinine Equation (2020) Performed By: #### L 503.5510, L500.4050, L300.3900 ####[facility] [address] [place], [address] Globulin (S) [Mass/Vol] 2.7 g/dL Normal 2.2-4.2 [facility] Comment on above: Performed By: #### L 503.5510, L500.4050, L300.3900 ####[facility] [address] [place], [address] Glucose [Mass/Vol] 188 mg/dL High 70-99 [facility] Comment on above: Performed By: #### L 503.5510, L500.4050, L300.3900 ####[facility] [address] [place], [address] Potassium [Moles/Vol] 5.0 mmol/L Normal 3.3-5.1 [facility] Comment on above: Result Comment: Hemo lysis present, Results??could be affected.?? Performed By: #### L 503.5510, L500.4050, L300.3900 ####[facility] [address] [place], [address] Sodium [Moles/Vol] 132 mmol/L Low 133-145 [facility] Comment on above: Performed By: #### L 503.5510, L500.4050, L300.3900 ####[facility] [address] [place], [address] T PROT 5.2 g/dL Low 5.9-8.4 [facility] Comment on above: Performed By: #### L 503.5510, L500.4050, L300.3900 ####[facility] [address] [place], [address] Urea nitrogen [Mass/Vol] 28 mg/dL High 4-19 [facility] Comment on above: Performed By: #### L 503.5510, L500.4050, L300.3900 ####[facility] [address] [place], [address] Creatinine [Mass/Vol]Ordered By: Herberth Carlson on 11-21-2024 Serum creatinine measurement (mass/volume) 1.49 mg/dL High 0.70-1.20 [facility] Emergency Department Summary on 11-21-2024 Emergency Department Summary Normal [facility] Eosinophil percentageOrdered By: Herberth Carlson on 11-21-2024 Eosinophil percentage 7.2 % High 0-5 [facility] Erythrocyte distribution wid th (RBC) [Ratio]Ordered By: Herberth Carlson on 11-21-2024 Erythrocyte distribution width ratio 16.8 % High 11.6-14.6 [facility] Erythrocyte distribution width standard deviation 57.1 fl High 35.1-43.9 [facility] Estimation of creatinine carolina aranceOrdered By: Herberth Carlson on 11-21-2024 Estimation of creatinine clearance 64.65 ml/min 50-250 [facility] GFR/1.73 sq M.predicted niki g non-blacks MDRD (S/P/Bld) [Vol rate/Area]Ordered By: Herberth Carlson on 11-21-2024 Glomerular filtration rate (GFR) estimation/1.73 sq m using serum, plasma, or whole b 54 Low >60 [facility] Glucose [Mass/Vol]Ordered By : Herberth Carlson on 11-21-2024 Serum glucose measurement (mass/volume) 188 mg/dL High 70-99 [facility] H AND P Exam - Hospitaliston 11-21-2024 H&P Exam - Hospitalist Normal [facility] Hematocrit Auto (Bld) [Volum e fraction]Ordered By: Herberth Carlson on 11-21-2024 Automated blood hematocrit (percentage) 24.6 % Low 40-54 [facility] Hemoglobin measurementOrdere d By: Herberth Carlson on 11-21-2024 Hemoglobin measurement 8.3 g/dL Low 13.0-16.5 [facility] Immature granulocytes/100 WB C Auto (Bld)Ordered By: Herberth Carlson on 11-21-2024 Automated immature granulocyte percentage 0.800 % 0.0-0.9 [facility] International normalized rat io (INR) calculationOrdered By: Herberth Carlson on 11-21-2024 International normalized ratio (INR) calculation 2.6 [facility] Ketones Test strip Ql (U)Ord ered By: Herberth Carlson on 11-21-2024 Ketones Ql (U) Negative Negative [facility] Lactic Acidon 11-21-2024 Lactate [Moles/Vol] 1.7 mmol/L Normal 0.0-2.0 [facility] Comment on above: Performed By: #### L 739.6008 ####[facility] [address] [place], [address] Lactate [Moles/Vol] 2.2 mmol/L Invalid Interpretation Code 0.0-2.0 [facility] Comment on above: Order Comment: Y Result Comment: Crit ical Result(s) Called at: 0630 by:??NOREEN LEÓN Results read back by same. Performed By: #### L 404.6008 ####[facility] [address] [place], [place], [address] Lactate [Moles/Vol] 2.7 mmol/L Invalid Interpretation Code 0.0-2.0 [facility] Comment on above: Order Comment: Y Result Comment: Crit ical Result(s) Called at: 0320 by: NOREEN DOMINGUEZ??Results read back by same. Performed By: #### L 503.6005 ####[facility] [address] [place], [place], [address] Lactic acid measurementOrder ed By: Herberth Carlson on 11-21-2024 Lactic acid measurement 2.7 mmol/L High 0.0-2.0 [facility] Leukocyte esterase Test stri p Ql (U)Ordered By: Herberth Carlson on 11-21-2024 Urine leukocyte esterase detection by dipstick 500 /ul High Negative [facility] Lymphocytes Auto (Unsp spec) [#/Vol]Ordered By: Herberth Carlson on 11-21-2024 Absolute lymphocyte count 1.33 X10^3/uL 0.83-4.51 [facility] Lymphocytes/100 WBC Auto (Un sp spec)Ordered By: Herberth Carlson on 11-21-2024 Automated lymphocyte count as percentage of total leukocytes 13.9 % Low 19-41 [facility] MCV (RBC) [Entitic vol]Order ed By: Herberth Carlson on 11-21-2024 MCV (mean corpuscular volume) determination 93.2 fL 80-94 [facility] Mean corpuscular hemoglobin (MCH) determinationOrdered By: Herberth Carlson on 11-21-2024 Mean corpuscular hemoglobin (MCH) determination 31.4 pg 27.0-32.0 [facility] Mean corpuscular hemoglobin concentration (MCHC) determinationOrdered By: Herberth Carlson on 11-21-2024 Mean corpuscular hemoglobin concentration (MCHC) determination 33.7 g/dL 32-36 [facility] Mean platelet volume determi nationOrdered By: Herberth Carlson on 11-21-2024 Mean platelet volume determination 11.6 fl 6.2-12.0 [facility] Monocyte percentageOrdered B y: Herberth Carlson on 11-21-2024 Monocyte percentage 9.2 % 0-10 [facility] Mucus LM Ql (Urine sed)Order ed By: Herberth Carlson on 11-21-2024 Mucus Ql (Urine sed) 0 SEEN /hpf [facility] Neutrophil percentageOrdered By: Herberth Carlson on 11-21-2024 Neutrophil percentage 68.7 % 47-70 [facility] Nitrite Test strip Ql (U)Ord ered By: Herberth Carlson on 11-21-2024 Nitrite Ql (U) Negative Negative [facility] No Panel InformationOrdered By: Herberth Carlson on 11-21-2024 112 U/L High <38 [facility] Nucleated red blood cell per centageOrdered By: Herberth Carlson on 11-21-2024 Nucleated red blood cell percentage 0 % 0-5 [facility] Platelet countOrdered By: Kaylyn Carlson on 11-21-2024 Platelet count 167 K/mm3 150-450 [facility] Potassium (Unsp spec) [Mass/ Vol]Ordered By: Herberth Carlson on 11-21-2024 Potassium measurement (mass/volume) 5.0 mmol/L 3.3-5.1 [facility] Protein Test strip Ql (U)Ord ered By: Herberth Carlson on 11-21-2024 Protein Ql (U) 500 mg/dl High Negative [facility] Urine protein assay by test strip, semi-quantitative 500 mg/dl High Negative [facility] Prothrombin Time w/INRon INR Coag (PPP) [Relative time] 2.6 {INR} Normal [facility] Comment on above: Performed By: #### L 5035510, L500.4050, L300.3900 ####[facility] [address] [place], [address] PT Coag (PPP) [Time] 28.2 s High 11.7-14.9 [facility] Comment on above: Performed By: #### L 503.5510, L500.4050, L300.3900 ####[facility] [address] [place], [place], [id number] Prothrombin timeOrdered By: Herberth Carlson on 11-21-2024 Prothrombin time 28.2 SECONDS High 11.7-14.9 [facility] RBC Auto (Bld) [#/Vol]Ordere d By: Herberth Carlson on 11-21-2024 Automated blood erythrocyte count 2.64 M/mm3 Low 4.6-6.2 [facility] Serum globulin measurementOr dered By: Herberth Carlson on 11-21-2024 Serum globulin measurement 2.7 g/dL 2.2-4.2 [facility] Sodium levelOrdered By: Norman Carlson on 11-21-2024 Sodium level 132 mmol/L Low 133-145 [facility] Specific gravity (U) [Rel de nsity]Ordered By: Herberth Carlson on 11-21-2024 Urine specific gravity measurement 1.015 1.002-1.030 [facility] Squamous epithelial cells de tection in urine sediment by light microscopyOrdered By: Herberth Carlson on 11-21-2024 Epithelial cells.squamous LM Ql (Urine sed) 0 SEEN /hpf 0-5 [facility] Squamous epithelial cells detection in urine sediment by light microscopy 0 SEEN /hpf [facility] Total proteinOrdered By: Digna Carlson on 11-21-2024 Total protein 5.2 g/dL Low 5.9-8.4 [facility] Urea nitrogen [Mass/Vol]Orde red By: Herberth Carlson on 11-21-2024 Serum or plasma urea nitrogen measurement (mass/volume) 28 mg/dL High 4-19 [facility] Urinalysis, Completeon 11-21 BACTERIA RARE Normal None Seen [facility] Comment on above: Order Comment: COLOR OF URINE MAY AFFECT DIPSTICK RESULTS.REAL ESTATE BRANCH MANAGER TO SPECIFY Performed By: #### L 400.0001 ####[facility] [address] [place], [place], [address] Clarity (U) Sl Cldy Normal Clear [facility] Comment on above: Order Comment: COLOR OF URINE MAY AFFECT DIPSTICK RESULTS.REAL ESTATE BRANCH MANAGER TO SPECIFY Performed By: #### L 400.0001 ####[facility] [address] [place], [address] RBC > 100 SEEN Normal 0-5 [facility] Comment on above: Order Comment: COLOR OF URINE MAY AFFECT DIPSTICK RESULTS.REAL ESTATE BRANCH MANAGER TO SPECIFY Result Comment: Micr oscopic field is filled. Other elements may beobscured. Performed By: #### L 400.0001 ####[facility] [address] [place], [address] WBC >100 SEEN Normal 0-5 [facility] Comment on above: Order Comment: COLOR OF URINE MAY AFFECT DIPSTICK RESULTS.REAL ESTATE BRANCH MANAGER TO SPECIFY Result Comment: Micr oscopic field is filled. Other elements may beobscured. Performed By: #### L 400.0001 ####[facility] [address] [place], [address] Color (U) Yellow Normal Yellow [facility] Comment on above: Order Comment: COLOR OF URINE MAY AFFECT DIPSTICK RESULTS.REAL ESTATE BRANCH MANAGER TO SPECIFY Result Comment: SPUN URINE SPECIMEN BEFORE URINE CHEMSTRIP WAS DIPPED DUE TOEXTREME HEMATURIA. Performed By: #### L 400.0001 ####[facility] [address] [place], [address] BILIRUBIN URINE Negative Normal Negative [facility] Comment on above: Order Comment: COLOR OF URINE MAY AFFECT DIPSTICK RESULTS.REAL ESTATE BRANCH MANAGER TO SPECIFY Performed By: #### L 400.0001 ####[facility] [address] [place], [address] GLUCOSE, UR Normal Normal Normal [facility] Comment on above: Order Comment: COLOR OF URINE MAY AFFECT DIPSTICK RESULTS.REAL ESTATE BRANCH MANAGER TO SPECIFY Performed By: #### L 400.0001 ####[facility] [address] [place], [address] KETONE UR Negative Normal Negative [facility] Comment on above: Order Comment: COLOR OF URINE MAY AFFECT DIPSTICK RESULTS.REAL ESTATE BRANCH MANAGER TO SPECIFY Performed By: #### L 400.0001 ####[facility] [address] [place], [address] LEUK ESTERASE 500 /ul Abnormal Negative [facility] Comment on above: Order Comment: COLOR OF URINE MAY AFFECT DIPSTICK RESULTS.REAL ESTATE BRANCH MANAGER TO SPECIFY Performed By: #### L 400.0001 ####[facility] [address] [place], [address] Nitrite Ql (U) Negative Normal Negative [facility] Comment on above: Order Comment: COLOR OF URINE MAY AFFECT DIPSTICK RESULTS.REAL ESTATE BRANCH MANAGER TO SPECIFY Performed By: #### L 400.0001 ####[facility] [address] [place], [address] OCCULT BLOOD-UR 250 /ul Abnormal Negative [facility] Comment on above: Order Comment: COLOR OF URINE MAY AFFECT DIPSTICK RESULTS.REAL ESTATE BRANCH MANAGER TO SPECIFY Performed By: #### L 400.0001 ####[facility] [address] [place], [address] pH UR 6.0 Normal 5.0 - 8.0 [facility] Comment on above: Order Comment: COLOR OF URINE MAY AFFECT DIPSTICK RESULTS.REAL ESTATE BRANCH MANAGER TO SPECIFY Performed By: #### L 400.0001 ####[facility] [address] [place], [address] PROT DIPSTX 500 mg/dl Abnormal Negative [facility] Comment on above: Order Comment: COLOR OF URINE MAY AFFECT DIPSTICK RESULTS.REAL ESTATE BRANCH MANAGER TO SPECIFY Performed By: #### L 400.0001 ####[facility] [address] [place], [address] SP.GR. DIPSTX 1.015 Normal 1.002-1.030 [facility] Comment on above: Order Comment: COLOR OF URINE MAY AFFECT DIPSTICK RESULTS.REAL ESTATE BRANCH MANAGER TO SPECIFY Performed By: #### L 400.0001 ####[facility] [address] [place], [address] UROBILI Normal Normal Normal [facility] Comment on above: Order Comment: COLOR OF URINE MAY AFFECT DIPSTICK RESULTS.REAL ESTATE BRANCH MANAGER TO SPECIFY Performed By: #### L 400.0001 ####[facility] [address] [place], [address] EPI,SQUAMOUS 0 SEEN Normal 0-5 [facility] Comment on above: Order Comment: COLOR OF URINE MAY AFFECT DIPSTICK RESULTS.REAL ESTATE BRANCH MANAGER TO SPECIFY Performed By: #### L 400.0001 ####[facility] [address] [place], [address] Mucus Ql (Urine sed) 0 SEEN Normal [facility] Comment on above: Order Comment: COLOR OF URINE MAY AFFECT DIPSTICK RESULTS.REAL ESTATE BRANCH MANAGER TO SPECIFY Performed By: #### L 400.0001 ####[facility] [address] 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 Abnormal [facility] Bacteria identified Cx Nom (U) GPC Poss Enterococcus sp Abnormal [facility] Bacteria identified Cx Nom (U) Positive Abnormal [facility] Urine glucose detectionOrder ed By: Herberth Carlson on 11-21-2024 Glucose Ql (U) Normal mg/dl Normal [facility] Urine glucose detection Normal mg/dl Normal [facility] Urine leukocyte esterase det ection by dipstickOrdered By: Herberth Carlson on 11-21-2024 Leukocyte esterase Test strip Ql (U) 500 /ul High Negative [facility] Urine pHOrdered By: Herberth Carlson on 11-21-2024 pH (U) 6.0 [pH] 5.0 - 8.0 [facility] Urine sediment bacteria coun t by microscopy (number/high power field)Ordered By: Herberth Carlson on 11-21-2024 Bacteria LM.HPF (Urine sed) [#/Area] RARE /hpf None Seen [facility] Urine specific gravity measu rementOrdered By: Herberth Carlson on 11-21-2024 Specific gravity (U) [Rel density] 1.015 1.002-1.030 [facility] Urine total bilirubin detect ion by test stripOrdered By: Herberth Carlson on 11-21-2024 Urine total bilirubin detection by test strip Negative Negative [facility] Urine urobilinogen measureme ntOrdered By: Herberth Carlson on 11-21-2024 Urobilinogen Ql (U) Normal mg/dl Normal [facility] Venous blood ammonia measure mentOrdered By: Herberth Carlson on 11-21-2024 Ammonia (P) [Moles/Vol] 17.9 umol/L [facility] Venous blood ammonia measurement 17.9 umol/L [facility] White blood cell (WBC) count Ordered By: Herberth Carlson on 11-21-2024 White blood cell (WBC) count 9.5 K/mm3 4.4-11.0 [facility] White blood cell countOrdere d By: Herberth Carlson on 11-21-2024 White blood cell count >100 SEEN /hpf 0-5 [facility] White blood cell count >100 SEEN /hpf 0-5 [facility] pH (U)Ordered By: Herberth henao on 11-21-2024 Urine pH 6.0 5.0 - 8.0 [facility] Bacteria Ur Culton Bacteria identified Cx Nom (U) CULTURE, URINE: Mixed microbiota, including predominantly: ORGANISM ID: 1 >=100,000 CFU/ml Mary glabrata No susceptibility testing done. Normal [facility] Comment on above: Performed By: #### 6 30-4 ####[facility] LABCLIA [id number] [place] [address] [place] Bacteria identified Cx Nom (U) Normal [facility] Comment on above: Performed By: #### 2 4356-8, 630-4 ####[facility] LABCLIA [id number] [address] [address] [place] Basic metabolic 2000 panelon 11-18-2024 Anion gap [Moles/Vol] 8 mmol/L Normal 8-15 [facility] Comment on above: Order Comment: Speci men Type: BLOOD SPECIMENOrdering Facility: [facility] Address: [address] [place] [address] Performed By: #### 2 4321-2, 07956-5, 2776- ####[facility] LABCLIA [id number] [address] [address] [place] Calcium [Mass/Vol] 8.3 mg/dL Low 8.5-10.2 [facility] Comment on above: Order Comment: Speci men Type: BLOOD SPECIMENOrdering Facility: [facility] Address: [address] [place] [address] Performed By: #### 2 4321-2, 54410-9, 2776- ####[facility] LABCLIA [id number] [place] [id number] [place] Chloride [Moles/Vol] 102 mmol/L Normal 98-107 [facility] Comment on above: Order Comment: Speci men Type: BLOOD SPECIMENOrdering Facility: [facility] Address: [address] [place], [place] [id number] Performed By: #### 2 4321-2, 51122-1, 2776- ####[facility] LABCLIA [id number] [address] [address] [place] CO2 [Moles/Vol] 19 mmol/L Low 22-30 [facility] Comment on above: Order Comment: Speci men Type: BLOOD SPECIMENOrdering Facility: [facility] Address: [address] [place], [place] [id number] Performed By: #### 2 4321-2, 60583-1, 277-1 ####[facility] LABCLIA [id number] [address] [address] [place] Creatinine [Mass/Vol] 0.95 mg/dL Normal 0.73-1.22 [facility] Comment on above: Order Comment: Ezekiel ramirez Type: BLOOD SPECIMENOrdering Facility: [facility] Address: [address] [place] [address] Performed By: #### 2 4321-2, 30944-3, 2777-1 ####[facility] LABIA [id number] [place] [id number] [facility] Creatinine and Glomerular filtration rate.predicted panel (S/P/Bld) 93 mL/min/1.73m??? Normal >=60 [facility] Comment on above: Order Comment: Ezekiel ramirez Type: BLOOD SPECIMENOrdering Facility: [facility] Address: [address] [place] [address] Result Comment: Patric mated Glomerular Filtration Rate [...] actual GFR. Performed By: #### 2 4321-2, 03037-4, 277- ####[facility] LABIA [id number] [place] [id number] [place] Glucose [Mass/Vol] 248 mg/dL High 74-99 [facility] Comment on above: Order Comment: Ezekiel ramirez Type: BLOOD SPECIMENOrdering Facility: [facility] Address: [address] [place] [address] Result Comment: The [place] [employer] (ADA) provides guidance for cutoff [...] Standards of Medical Care in Diabetes 2016, [place] [employer]. Diabetes Care. 2016.39(Suppl 1). Performed By: #### 2 4321-2, 63109-9, 2776- ####[facility] LABCLIA [id number] [address] [address] [place] Potassium [Moles/Vol] 4.4 mmol/L Normal 3.7-5.1 [facility] Comment on above: Order Comment: Speci men Type: BLOOD SPECIMENOrdering Facility: [facility] Address: [address] [place] [address] Performed By: #### 2 4321-2, 46255-9, 2776- ####[facility] LABCLIA [id number] [place] [id number] [place] Sodium [Moles/Vol] 129 mmol/L Low 136-144 [facility] Comment on above: Order Comment: Speci men Type: BLOOD SPECIMENOrdering Facility: [facility] Address: [address] [place], [place] [id number] Performed By: #### 2 4321-2, 82181-3, 2776-08 ####[facility] LABCLIA [id number] [place] [address] [place] Urea nitrogen [Mass/Vol] 16 mg/dL Normal 9-24 [facility] Comment on above: Order Comment: Speci men Type: BLOOD SPECIMENOrdering Facility: [facility] Address: [address] [place] [address] Performed By: #### 2 4321-2, 83047-0, 2776-1 ####[facility] LABCLIA [id number] [address] [address] [place] CASE MANAGEMon 11-18-2024 CASE MANAGEM Normal [facility] CBC W Auto Differential pane l (Bld)on 11-18-2024 Basophils (Bld) [#/Vol] 10*3/uL Normal <0.11 [facility] Comment on above: Order Comment: Speci men Type: BLOOD SPECIMENOrdering Facility: [facility] Address: [address] [place] [address] Performed By: #### 5 7021-8 ####[facility] LABCLIA [id number] [place] [id number] [place] Basophils/100 WBC (Bld) 0.0 % Normal [facility] Comment on above: Order Comment: Speci men Type: BLOOD SPECIMENOrdering Facility: [facility] Address: [address] [place] [address] Performed By: #### 5 7021-8 ####[facility] LABCLIA [id number] [place] [address] [place] Differential cell count method Nom (Bld) Auto Normal [facility] Comment on above: Order Comment: Speci men Type: BLOOD SPECIMENOrdering Facility: [facility] Address: [address] [place] [address] Performed By: #### 5 7021-8 ####[facility] LABCLIA [id number] [place] [address] [place] Eosinophils (Bld) [#/Vol] 10*3/uL Normal <0.46 [facility] Comment on above: Order Comment: Speci men Type: BLOOD SPECIMENOrdering Facility: [facility] Address: [address] [place] [address] Performed By: #### 5 7021-8 ####[facility] LABCLIA [id number] [place] [id number] [place] Eosinophils/100 WBC (Bld) 0.1 % Normal [facility] Comment on above: Order Comment: Speci men Type: BLOOD SPECIMENOrdering Facility: [facility] Address: [address] [place] [address] Performed By: #### 5 7021-8 ####[facility] LABCLIA [id number] [place] [address] [place] Erythrocyte distribution width (RBC) [Ratio] 16.7 % High 11.5-15.0 [facility] Comment on above: Order Comment: Speci men Type: BLOOD SPECIMENOrdering Facility: [facility] Address: [address] [place] [address] Performed By: #### 5 7021-8 ####[facility] LABCLIA [id number] [place] [address] [place] Hematocrit (Bld) [Volume fraction] 21.5 % Low 39.0-51.0 [facility] Comment on above: Order Comment: Speci men Type: BLOOD SPECIMENOrdering Facility: [facility] Address: [address] [place] [address] Performed By: #### 5 7021-8 ####[facility] LABIA [id number] [place] [address] [place] Hemoglobin (Bld) [Mass/Vol] 7.2 g/dL Low 13.0-17.0 [facility] Comment on above: Order Comment: Speci men Type: BLOOD SPECIMENOrdering Facility: [facility] Address: [address] [place] [address] Performed By: #### 5 7021-8 ####[facility] LABCLIA [id number] [place] [id number] [place] Immature granulocytes (Bld) [#/Vol] 0.06 10*3/uL Normal <0.10 [facility] Comment on above: Order Comment: Speci men Type: BLOOD SPECIMENOrdering Facility: [facility] Address: [address] [place] [address] Performed By: #### 5 7021-8 ####[facility] LABCLIA [id number] [place] [address] [place] Immature granulocytes/100 WBC (Bld) 0.7 % Normal [facility] Comment on above: Order Comment: Speci men Type: BLOOD SPECIMENOrdering Facility: [facility] Address: [address] [place] [address] Performed By: #### 5 7021-8 ####[facility] LABCLIA [id number] [place] [address] [place] Lymphocytes (Bld) [#/Vol] 0.61 10*3/uL Low 1.00-4.00 [facility] Comment on above: Order Comment: Speci men Type: BLOOD SPECIMENOrdering Facility: [facility] Address: [address] [place] [address] Performed By: #### 5 7021-8 ####[facility] LABIA [id number] [place] [address] [place] Lymphocytes/100 WBC (Bld) 7.3 % Normal [facility] Comment on above: Order Comment: Speci men Type: BLOOD SPECIMENOrdering Facility: [facility] Address: [address] [place] [address] Performed By: #### 5 7021-8 ####[facility] LABIA [id number] [place] [address] [place] MCH (RBC) [Entitic mass] 30.9 pg Normal 26.0-34.0 [facility] Comment on above: Order Comment: Speci men Type: BLOOD SPECIMENOrdering Facility: [facility] Address: [address] [place] [address] Performed By: #### 5 7021-8 ####[facility] LABIA [id number] [place] [address] [place] MCHC (RBC) [Mass/Vol] 33.5 g/dL Normal 30.5-36.0 [facility] Comment on above: Order Comment: Speci men Type: BLOOD SPECIMENOrdering Facility: [facility] Address: [address] [place] [address] Performed By: #### 5 7021-8 ####[facility] LABIA [id number] [place] [address] [place] MCV (RBC) [Entitic vol] 92.3 fL Normal 80.0-100.0 [facility] Comment on above: Order Comment: Speci men Type: BLOOD SPECIMENOrdering Facility: [facility] Address: [address] [place] [address] Performed By: #### 5 7021-8 ####[facility] LABIA [id number] [place] [address] [place] Monocytes (Bld) [#/Vol] 0.72 10*3/uL Normal <0.87 [facility] Comment on above: Order Comment: Speci men Type: BLOOD SPECIMENOrdering Facility: [facility] Address: [address] [place] [address] Performed By: #### 5 7021-8 ####[facility] LABIA [id number] [place] [address] [place] Monocytes/100 WBC (Bld) 8.7 % Normal C [facility] Comment on above: Order Comment: Speci men Type: BLOOD SPECIMENOrdering Facility: [facility] Address: [address] [place] [address] Performed By: #### 5 7021-8 ####[facility] LABIA [id number] [place] [address] [place] Neutrophils (Bld) [#/Vol] 6.92 10*3/uL Normal 1.45-7.50 [facility] Comment on above: Order Comment: Speci men Type: BLOOD SPECIMENOrdering Facility: [facility] Address: [address] [place] [address] Performed By: #### 5 7021-8 ####[facility] LABCLIA [id number] [place] [address] [place] Neutrophils/100 WBC (Bld) 83.2 % Normal [facility] Comment on above: Order Comment: Speci men Type: BLOOD SPECIMENOrdering Facility: [facility] Address: [address] [place] [address] Performed By: #### 5 7021-8 ####[facility] LABCLIA [id number] [place] [address] [place] Nucleated RBC (Bld) [#/Vol] 10*3/uL Normal <0.01 [facility] Comment on above: Order Comment: Speci men Type: BLOOD SPECIMENOrdering Facility: [facility] Address: [address] [place] [address] Performed By: #### 5 7021-8 ####[facility] LABIA [id number] [place] [address] [place] Nucleated RBC/100 WBC (Bld) [Ratio] 0.0 /100 WBC Normal [facility] Comment on above: Order Comment: Speci men Type: BLOOD SPECIMENOrdering Facility: [facility] Address: [address] [place] [address] Performed By: #### 5 7021-8 ####[facility] LABIA [id number] [place] [address] [place] Platelet mean volume (Bld) [Entitic vol] 12.1 fL Normal 9.0-12.7 [facility] Comment on above: Order Comment: Speci men Type: BLOOD SPECIMENOrdering Facility: [facility] Address: [address] [place] [address] Performed By: #### 5 7021-8 ####[facility] LABCLIA [id number] [place] [address] [place] Platelets (Bld) [#/Vol] 76 10*3/uL Low 150-400 [facility] Comment on above: Order Comment: Speci men Type: BLOOD SPECIMENOrdering Facility: [facility] Address: [address] [place] [address] Result Comment: No c lot detected. Performed By: #### 5 7021-8 ####[facility] LABCLIA [id number] [place] [address] [place] RBC (Bld) [#/Vol] 2.33 10*6/uL Low 4.20-6.00 [facility] Comment on above: Order Comment: Speci men Type: BLOOD SPECIMENOrdering Facility: [facility] Address: [address] [place] [address] Performed By: #### 5 7021-8 ####[facility] LABCLIA [id number] [place] [address] [place] WBC (Bld) [#/Vol] 8.32 10*3/uL Normal 3.70-11.00 [facility] Comment on above: Order Comment: Speci men Type: BLOOD SPECIMENOrdering Facility: [facility] Address: [address] [place] [address] Performed By: #### 5 7021-8 ####[facility] LABCLIA [id number] [place] [address] [place] CNCOon 11-18-2024 CNCO Letter Text Normal [facility] CNDSon 11-18-2024 CNDS Normal [facility] CNPNon 11-18-2024 CNPN Normal [facility] Fibrinogen PPP-mCncon 2024 Fibrinogen Coag (PPP) [Mass/Vol] 104 mg/dL Low 200-400 [facility] Comment on above: Order Comment: Speci men Type: BLOOD SPECIMENOrdering Facility: [facility] Address: [address] [place] [address] Performed By: #### 3 255-7, 41525-8 ####[facility] LABCLIA [id number] [address] [place] [address] [place] Hepatic function 2000 panelo n 11-18-2024 Albumin [Mass/Vol] 2.6 g/dL Low 3.9-4.9 [facility] Comment on above: Order Comment: Speci men Type: BLOOD SPECIMENOrdering Facility: [facility] Address: [address] [place] [address] Performed By: #### 2 4321-2, 04756-7, 277-1 ####[facility] LABCLIA [id number] [place] [address] [place] ALP [Catalytic activity/Vol] 245 U/L High 38-113 [facility] Comment on above: Order Comment: Speci men Type: BLOOD SPECIMENOrdering Facility: [facility] Address: [address] [place] [address] Performed By: #### 2 4321-2, 05338-5, 277-1 ####[facility] LABCLIA [id number] [place] [address] [place] ALT [Catalytic activity/Vol] 31 U/L Normal 10-54 [facility] Comment on above: Order Comment: Speci men Type: BLOOD SPECIMENOrdering Facility: [facility] Address: [address] [place] [address] Performed By: #### 2 4321-2, 71873-2, 277-1 ####[facility] LABCLIA [id number] [place] [id number] [place] AST [Catalytic activity/Vol] 52 U/L High 14-40 [facility] Comment on above: Order Comment: Speci men Type: BLOOD SPECIMENOrdering Facility: [facility] Address: [address] [place] [address] Performed By: #### 2 4321-2, 53187-2, 2777-1 ####[facility] LABCLIA [id number] [place] [id number] [place] Bilirubin [Mass/Vol] 1.2 mg/dL Normal 0.2-1.3 [facility] Comment on above: Order Comment: Speci men Type: BLOOD SPECIMENOrdering Facility: [facility] Address: [address] [place] [address] Performed By: #### 2 4321-2, 24751-8, 2777-1 ####[facility] LABCLIA [id number] [place] [address] [place] Bilirubin.conjugated [Mass/Vol] 0.7 mg/dL High <0.3 [facility] Comment on above: Order Comment: Speci men Type: BLOOD SPECIMENOrdering Facility: [facility] Address: [address] [place] [address] Performed By: #### 2 4321-2, 11696-4, 2777-1 ####[facility] LABCLIA [id number] [place] [address] [place] Protein [Mass/Vol] 5.0 g/dL Low 6.3-8.0 [facility] Comment on above: Order Comment: Speci men Type: BLOOD SPECIMENOrdering Facility: [facility] Address: [address] [place] [address] Performed By: #### 2 4321-2, 08659-1, 2777-1 ####[facility] LABIA [id number] [place] [address] [place] NURSING PROGon 11-18-2024 NURSING PROG Normal [facility] PT panel Coag (PPP)on 2024 INR Coag (PPP) [Relative time] 2.0 {INR} High 0.9-1.3 [facility] Comment on above: Order Comment: Speci men Type: BLOOD SPECIMENOrdering Facility: [facility] Address: [address] [place] [address] Result Comment: Sarah min K Antagonist (VKA) Therapeutic Range: INR 2 to 3 (Target INR of 2.5)Note: For patients treated with VKA drugs, such as warfarin, the [place] [employer] 2012 Guideline recommends [...] al. Chest 2012, 141:7S-47SNishimura RA, et al. [facility] 2017, 70: 252-289 Performed By: #### 3 255-7, 89450-6 ####[facility] LABIA [id number] [place] [address] [place] PT Coag (PPP) [Time] 20.9 s High 9.7-13.0 [facility] Comment on above: Order Comment: Speci men Type: BLOOD SPECIMENOrdering Facility: [facility] Address: [address] [place] [address] Performed By: #### 3 255-7, 66298-4 ####[facility] [id number] [place] [address] [place] Phosphate SerPl-mCncon 11-18 Phosphate [Mass/Vol] 2.4 mg/dL Low 2.7-4.8 [facility] Comment on above: Order Comment: Speci men Type: BLOOD SPECIMENOrdering Facility: [facility] Address: [address] [place] [address] Performed By: #### 2 4321-2, 40386-7, 2777-1 ####[facility] LABIA [id number] [place] [address] [place] TYPE + SCREENon 11-18-2024 ABO O Normal [facility] Comment on above: Order Comment: Speci men Type: BLOOD SPECIMENOrdering Facility: [facility] Address: [address] [place] [address] Performed By: #### T SCR ####[facility] BANKCLIA [id number] [place] [address] [place] Rh Nom (Bld) Positive Normal [facility] Comment on above: Order Comment: Speci men Type: BLOOD SPECIMENOrdering Facility: [facility] Address: [address] [place] [address] Performed By: #### T SCR ####[facility] BLOOD BANKCLIA [id number] [address] OF [facility] TYPE AND SCREEN EXPIRATION 11/21/2024 23:59 Normal [facility] Comment on above: Order Comment: Speci men Type: BLOOD SPECIMENOrdering Facility: [facility] Address: [address] [place] [address] Performed By: #### T SCR ####CC [facility] BLOOD BANKCLIA [id number] [address] [place] Urinalysis complete panel (U )on 11-18-2024 BACTERIA UL 1671.0 uL High Negative [facility] Comment on above: Order Comment: Speci men Type: URINE SPECIMENOrdering Facility: [facility] Address: [address] [place] [address] Performed By: #### 2 4356-8, 630-4 ####[facility] LABCLIA [id number] [address] [place] Bilirubin Ql (U) 2+ Abnormal Negative [facility] Comment on above: Order Comment: Speci men Type: URINE SPECIMENOrdering Facility: [facility] Address: [address] [place] [address] Result Comment: Sugg est correlation with clinical findings and serum bilirubin if clinically indicated. Performed By: #### 2 4356-8, 630-4 ####[facility] LABCLIA [id number] [facility] [address] [place] [address] [place] CALCIUM OXALATE CRYSTALS (UA) Few Abnormal None Seen [facility] Comment on above: Order Comment: Speci men Type: URINE SPECIMENOrdering Facility: [facility] Address: [address] [place] [address] Performed By: #### 2 4356-8, 630-4 ####[facility] LABCLIA [id number] [facility] [address] [place] [address] [place] Clarity (Unsp spec) Turbid Abnormal Clear [facility] Comment on above: Order Comment: Speci men Type: URINE SPECIMENOrdering Facility: [facility] Address: [address] [place] [address] Performed By: #### 2 43568, 630-4 ####[facility] LABCLIA [id number] [address], [facility] [place] Color (U) Red Abnormal Yellow [facility] Comment on above: Order Comment: Speci men Type: URINE SPECIMENOrdering Facility: [facility] Address: [address] [place] [address] Performed By: #### 2 4356, 630-4 ####[facility] LABCLIA [id number] [facility] [address], [facility] [place] Epithelial cells LM.HPF (Urine sed) [#/Area] None Seen Normal [facility] Comment on above: Order Comment: Speci men Type: URINE SPECIMENOrdering Facility: [facility] Address: [address] [place] [address] Performed By: #### 2 4356-8, 630-4 ####[facility] LABCLIA [id number] [facility] [address], [facility] [place] Glucose Test strip (U) [Mass/Vol] Negative Normal Negative [facility] Comment on above: Order Comment: Speci men Type: URINE SPECIMENOrdering Facility: [facility] Address: [address] [place] [address] Performed By: #### 2 4356-8, 630-4 ####[facility] LABCLIA [id number] [place] [id number] [place] Hemoglobin Ql (U) 2+ Abnormal Negative [facility] Comment on above: Order Comment: Speci men Type: URINE SPECIMENOrdering Facility: [facility] Address: [address] [place] [address] Performed By: #### 2 4356-8, 630-4 ####[facility] LABCLIA [id number] [place] [address] [place] Hyaline casts (Urine sed) [#/Area] 0 /[LPF] Normal 0 /LPF [facility] Comment on above: Order Comment: Speci men Type: URINE SPECIMENOrdering Facility: [facility] Address: [address] [place] [address] Performed By: #### 2 4356-8, 630-4 ####[facility] LABCLIA [id number] [place] [address] [place] Ketones Ql (U) Negative Normal Negative [facility] Comment on above: Order Comment: Speci men Type: URINE SPECIMENOrdering Facility: [facility] Address: [address] [place] [address] Performed By: #### 2 4356-8, 630-4 ####[facility] LABCLIA [id number] [place] [id number] [place] Leukocyte esterase Test strip Ql (U) 3+ Abnormal Negative [facility] Comment on above: Order Comment: Speci men Type: URINE SPECIMENOrdering Facility: [facility] Address: [address] [place] [address] Performed By: #### 2 4356-8, 630-4 ####[facility] LABCLIA [id number] [place] [address] [place] Nitrite Ql (U) Negative Normal Negative [facility] Comment on above: Order Comment: Speci men Type: URINE SPECIMENOrdering Facility: [facility] Address: [address] [place] [address] Result Comment: Resu lt rechecked. Performed By: #### 2 4356-8, 630-4 ####[facility] LABCLIA [id number] [place] [address] [place] pH (U) 5.0 [pH] Normal <8.5 [facility] Comment on above: Order Comment: Speci men Type: URINE SPECIMENOrdering Facility: [facility] Address: [address] [place] [address] Performed By: #### 2 4356-8, 630-4 ####[facility] LABCLIA [id number] [place] [address] [place] Protein (U) [Mass/Vol] 2+ Abnormal Negative Cl [facility] Comment on above: Order Comment: Speci men Type: URINE SPECIMENOrdering Facility: [facility] Address: [address] [place] [address] Performed By: #### 2 4356-8, 630-4 ####[facility] LABIA [id number] [place] [address] [place] RBC LM.HPF (Urine sed) [#/Area] /[HPF] Abnormal 0-2 /HPF [facility] Comment on above: Order Comment: Speci men Type: URINE SPECIMENOrdering Facility: [facility] Address: [address] [place] [address] Performed By: #### 2 4356-8, 630-4 ####[facility] LABIA [id number] [place] [address] [place] Specific gravity (U) [Rel density] 1.021 Normal 1.005-1.030 [facility] Comment on above: Order Comment: Speci men Type: URINE SPECIMENOrdering Facility: [facility] Address: [address] [place] [address] Performed By: #### 2 4356-8, 630-4 ####[facility] LABIA [id number] [place] [address] [place] Urobilinogen Ql (U) 0.2 EU/dL Normal 0.2-1.0 EU/dL [facility] Comment on above: Order Comment: Speci men Type: URINE SPECIMENOrdering Facility: [facility] Address: [address] [place] [address] Performed By: #### 2 4356-8, 630-4 ####[facility] LABIA [id number] [place] [address] [place] WBC LM.HPF (Urine sed) [#/Area] /[HPF] Abnormal 0-5 /HPF [facility] Comment on above: Order Comment: Speci men Type: URINE SPECIMENOrdering Facility: [facility] Address: [address] [place] [address] Performed By: #### 2 4356-8, 630-4 ####[facility] LABIA [id number] [place] [address] [place] Yeast.budding LM.HPF (Urine sed) [#/Area] Present Abnormal None Seen [facility] Comment on above: Order Comment: Speci men Type: URINE SPECIMENOrdering Facility: [facility] Address: [address] [place] [address] Performed By: #### 2 4356-8, 630-4 ####[facility] LABIA [id number] [place] [address] [place] Basic metabolic 2000 panelon 11-17-2024 Anion gap [Moles/Vol] 10 mmol/L Normal 8-15 [facility] Comment on above: Order Comment: Speci men Type: BLOOD SPECIMENOrdering Facility: [facility] Address: [address] [place], [place] [address] Performed By: #### 2 4321-2, 56494-0, 2776-08 ####[facility] LABCLIA [id number] [place] [address] [place] Calcium [Mass/Vol] 8.9 mg/dL Normal 8.5-10.2 [facility] Comment on above: Order Comment: Speci men Type: BLOOD SPECIMENOrdering Facility: [facility] Address: [address] [place] [address] Performed By: #### 2 4321-2, 37200-5, 2776-08 ####[facility] LABCLIA [id number] [place] [address] [place] Chloride [Moles/Vol] 105 mmol/L Normal 98-107 [facility] Comment on above: Order Comment: Speci men Type: BLOOD SPECIMENOrdering Facility: [facility] Address: [address] [place] [address] Performed By: #### 2 4321-2, 73897-4, 2776-08 ####[facility] LABIA [id number] [place] [address] [place] CO2 [Moles/Vol] 17 mmol/L Low 22-30 [facility] Comment on above: Order Comment: Speci men Type: BLOOD SPECIMENOrdering Facility: [facility] Address: [address] [place], [place] [address] Performed By: #### 2 4321-2, 08625-9, 2776-08 ####[facility] LABIA [id number] [place] [address] [place] Creatinine [Mass/Vol] 0.77 mg/dL Normal 0.73-1.22 [facility] Comment on above: Order Comment: Speci men Type: BLOOD SPECIMENOrdering Facility: [facility] Address: [address] [place], [place] [address] Performed By: #### 2 4321-2, 25256-8, 2777- ####[facility] LABIA [id number] [place] [address] [place] Creatinine and Glomerular filtration rate.predicted panel (S/P/Bld) 104 mL/min/1.73m??? Normal >=60 [facility] Comment on above: Order Comment: Ezekiel ramirez Type: BLOOD SPECIMENOrdering Facility: [facility] Address: [address] [place] [address] Result Comment: Patric mated Glomerular Filtration Rate [...] actual GFR. Performed By: #### 2 4321-2, 93461-6, 2777- ####[facility] LABIA [id number] [address] [address] [place] Glucose [Mass/Vol] 291 mg/dL High 74-99 [facility] Comment on above: Order Comment: Ezekiel ramirez Type: BLOOD SPECIMENOrdering Facility: [facility] Address: [address] [place] [address] Result Comment: The [place] [employer] (ADA) provides guidance for cutoff [...] Standards of Medical Care in Diabetes 2016, [place] [employer]. Diabetes Care. 2016.39(Suppl 1). Performed By: #### 2 4321-2, 42879-2, 2777- ####[facility] LABCLIA [id number] [place] [address] [place] Potassium [Moles/Vol] 4.5 mmol/L Normal 3.7-5.1 [facility] Comment on above: Order Comment: Speci men Type: BLOOD SPECIMENOrdering Facility: [facility] Address: [address] [place] [address] Performed By: #### 2 4321-2, 90522-0, 2777- ####[facility] LABIA [id number] [place] [address] [place] Sodium [Moles/Vol] 132 mmol/L Low 136-144 [facility] Comment on above: Order Comment: Speci men Type: BLOOD SPECIMENOrdering Facility: [facility] Address: [address] [place] [address] Performed By: #### 2 4321-2, 36384-1, 2777- ####[facility] LABIA [id number] [place] [address] [place] Urea nitrogen [Mass/Vol] 9 mg/dL Normal 9-24 [facility] Comment on above: Order Comment: Speci men Type: BLOOD SPECIMENOrdering Facility: [facility] Address: [address] [place] [address] Performed By: #### 2 4321-2, 02201-1, 2777- ####[facility] LABIA [id number] [place] [address] [place] CASE MANAGEMon 11-17-2024 CASE MANAGEM Normal [facility] CBC W Auto Differential pane l (Bld)on 11-17-2024 Basophils (Bld) [#/Vol] 10*3/uL Normal <0.11 [facility] Comment on above: Order Comment: Speci men Type: BLOOD SPECIMENOrdering Facility: [facility] Address: [address] [place] [address] Performed By: #### 5 7021-8 ####[facility] LABCLIA [id number] [facility] [address], [place] [address] [place] Basophils/100 WBC (Bld) 0.0 % Normal [facility] Comment on above: Order Comment: Speci men Type: BLOOD SPECIMENOrdering Facility: [facility] Address: [address] [place] [address] Performed By: #### 5 7021-8 ####[facility] LABCLIA [id number] [address], [place] [address] [place] Differential cell count method Nom (Bld) Auto Normal [facility] Comment on above: Order Comment: Speci men Type: BLOOD SPECIMENOrdering Facility: [facility] Address: [address] [place] [address] Performed By: #### 5 7021-8 ####[facility] LABCLIA [id number] [address], [place] [address] [place] Eosinophils (Bld) [#/Vol] 10*3/uL Normal <0.46 [facility] Comment on above: Order Comment: Speci men Type: BLOOD SPECIMENOrdering Facility: [facility] Address: [address] [place] [address] Performed By: #### 5 7021-8 ####[facility] LABCLIA [id number] [address], [address] [place] Eosinophils/100 WBC (Bld) 0.0 % Normal [facility] Comment on above: Order Comment: Speci men Type: BLOOD SPECIMENOrdering Facility: [facility] Address: [address] [place] [address] Performed By: #### 5 7021-8 ####[facility] LABCLIA [id number] [address], [facility] [place] Erythrocyte distribution width (RBC) [Ratio] 16.9 % High 11.5-15.0 [facility] Comment on above: Order Comment: Speci men Type: BLOOD SPECIMENOrdering Facility: [facility] Address: [address] [place] [address] Performed By: #### 5 7021-8 ####[facility] LABCLIA [id number] [address] [address] [place] Hematocrit (Bld) [Volume fraction] 22.7 % Low 39.0-51.0 [facility] Comment on above: Order Comment: Speci men Type: BLOOD SPECIMENOrdering Facility: [facility] Address: [address] [place] [address] Performed By: #### 5 7021-8 ####[facility] LABCLIA [id number] [place] [address] [place] Hemoglobin (Bld) [Mass/Vol] 7.7 g/dL Low 13.0-17.0 [facility] Comment on above: Order Comment: Speci men Type: BLOOD SPECIMENOrdering Facility: [facility] Address: [address] [place] [address] Performed By: #### 5 7021-8 ####[facility] LABIA [id number] [place] [address] [place] Immature granulocytes (Bld) [#/Vol] 0.03 10*3/uL Normal <0.10 [facility] Comment on above: Order Comment: Speci men Type: BLOOD SPECIMENOrdering Facility: [facility] Address: [address] [place] [address] Performed By: #### 5 7021-8 ####[facility] LABCLIA [id number] [place] [address] [place] Immature granulocytes/100 WBC (Bld) 0.9 % Normal [facility] Comment on above: Order Comment: Speci men Type: BLOOD SPECIMENOrdering Facility: [facility] Address: [address] [place] [address] Performed By: #### 5 7021-8 ####[facility] LABCLIA [id number] [place] [address] [place] Lymphocytes (Bld) [#/Vol] 0.28 10*3/uL Low 1.00-4.00 [facility] Comment on above: Order Comment: Speci men Type: BLOOD SPECIMENOrdering Facility: [facility] Address: [address] [place] [address] Performed By: #### 5 7021-8 ####[facility] LABCLIA [id number] [place] [address] [place] Lymphocytes/100 WBC (Bld) 8.3 % Normal [facility] Comment on above: Order Comment: Speci men Type: BLOOD SPECIMENOrdering Facility: [facility] Address: [address] [place] [address] Performed By: #### 5 7021-8 ####[facility] LABIA [id number] [place] [address] [place] MCH (RBC) [Entitic mass] 31.7 pg Normal 26.0-34.0 [facility] Comment on above: Order Comment: Speci men Type: BLOOD SPECIMENOrdering Facility: [facility] Address: [address] [place] [address] Performed By: #### 5 7021-8 ####[facility] LABCLIA [id number] [place] [address] [place] MCHC (RBC) [Mass/Vol] 33.9 g/dL Normal 30.5-36.0 [facility] Comment on above: Order Comment: Speci men Type: BLOOD SPECIMENOrdering Facility: [facility] Address: [address] [place] [address] Performed By: #### 5 7021-8 ####[facility] LABIA [id number] [place] [address] [place] MCV (RBC) [Entitic vol] 93.4 fL Normal 80.0-100.0 C [facility] Comment on above: Order Comment: Speci men Type: BLOOD SPECIMENOrdering Facility: [facility] Address: [address] [place] [address] Performed By: #### 5 7021-8 ####[facility] LABCLIA [id number] [facility] AVENUELOMA [facility] [place] [address] [place] Monocytes (Bld) [#/Vol] 0.17 10*3/uL Normal <0.87 [facility] Comment on above: Order Comment: Speci men Type: BLOOD SPECIMENOrdering Facility: [facility] Address: [address] [place] [address] Performed By: #### 5 7021-8 ####[facility] LABCLIA [id number] [facility] [place] [address] [place] Monocytes/100 WBC (Bld) 5.0 % Normal C [facility] Comment on above: Order Comment: Speci men Type: BLOOD SPECIMENOrdering Facility: [facility] Address: [address] [place] [address] Performed By: #### 5 7021-8 ####[facility] LABCLIA [id number] [place] [address] [place] Neutrophils (Bld) [#/Vol] 2.89 10*3/uL Normal 1.45-7.50 [facility] Comment on above: Order Comment: Speci men Type: BLOOD SPECIMENOrdering Facility: [facility] Address: [address] [place] [address] Performed By: #### 5 7021-8 ####[facility] LABCLIA [id number] [place] [address] [place] Neutrophils/100 WBC (Bld) 85.8 % Normal [facility] Comment on above: Order Comment: Speci men Type: BLOOD SPECIMENOrdering Facility: [facility] Address: [address] [place], [place] [address] Performed By: #### 5 7021-8 ####[facility] LABCLIA [id number] [address], [place] [address] [place] Nucleated RBC (Bld) [#/Vol] 10*3/uL Normal <0.01 [facility] Comment on above: Order Comment: Speci men Type: BLOOD SPECIMENOrdering Facility: [facility] Address: [address] [place] [address] Performed By: #### 5 7021-8 ####[facility] LABCLIA [id number] [address], [place] [address] [place] Nucleated RBC/100 WBC (Bld) [Ratio] 0.0 /100 WBC Normal [facility] Comment on above: Order Comment: Speci men Type: BLOOD SPECIMENOrdering Facility: [facility] Address: [address] [place] [address] Performed By: #### 5 7021-8 ####[facility] LABIA [id number] [address], [place] [address] [place] Platelet mean volume (Bld) [Entitic vol] 12.0 fL Normal 9.0-12.7 [facility] Comment on above: Order Comment: Speci men Type: BLOOD SPECIMENOrdering Facility: [facility] Address: [address] [place] [address] Performed By: #### 5 7021-8 ####[facility] LABCLIA [id number] [address] [address] [place] Platelets (Bld) [#/Vol] 57 10*3/uL Low 150-400 C [facility] Comment on above: Order Comment: Speci men Type: BLOOD SPECIMENOrdering Facility: [facility] Address: [address] [place], [place] [address] Performed By: #### 5 7021-8 ####[facility] LABCLIA [id number] [address] [address] [place] RBC (Bld) [#/Vol] 2.43 10*6/uL Low 4.20-6.00 [facility] Comment on above: Order Comment: Speci men Type: BLOOD SPECIMENOrdering Facility: [facility] Address: [address] [place] [address] Performed By: #### 5 7021-8 ####[facility] LABIA [id number] [place] [address] [place] WBC (Bld) [#/Vol] 3.37 10*3/uL Low 3.70-11.00 [facility] Comment on above: Order Comment: Speci men Type: BLOOD SPECIMENOrdering Facility: [facility] Address: [address] [place] [address] Performed By: #### 5 7021-8 ####[facility] [id number] [place] [address] [place] CONSULT PROGon 11-17-2024 CONSULT PROG Normal [facility] Fact Xa PPP-aCncon Coagulation factor X activated act Coag Qn (PPP) <0.10 Normal <0.10 [facility] Comment on above: Order Comment: Speci men Type: BLOOD SPECIMENOrdering Facility: [facility] Address: [address] [place] [address] Result Comment: The recommended therapeutic range for treatment of venous and arterial thrombosis with intravenous unfractionated heparin is an anti Xa activity level of 0.3 to 0.7 IU/mL. In patients with concomitant therapy with thrombolytic agents and/or platelet glycoprotein IIb/IIIa antagonists, the recommended therapeutic range is an anti Xa activity level of 0.2 to 0.5 IU/mL. Performed By: #### 3 217-7 ####[facility] LABIA [id number] [place] [address] [place] Fibrinogen PPP-mCncon 2024 Fibrinogen Coag (PPP) [Mass/Vol] 114 mg/dL Low 200-400 [facility] Comment on above: Order Comment: Speci men Type: BLOOD SPECIMENOrdering Facility: [facility] Address: [address] [place] [address] Performed By: #### 3 255-7, 98367-1 ####[facility] LABCLIA [id number] [address] [address] [place] Hepatic function 2000 panelo n 11-17-2024 Albumin [Mass/Vol] 2.7 g/dL Low 3.9-4.9 [facility] Comment on above: Order Comment: Speci men Type: BLOOD SPECIMENOrdering Facility: [facility] Address: [address] [place] [address] Performed By: #### 2 4321-2, 73311-4, 2777-1 ####[facility] LABCLIA [id number] [place] [address] [place] ALP [Catalytic activity/Vol] 276 U/L High 38-113 [facility] Comment on above: Order Comment: Speci men Type: BLOOD SPECIMENOrdering Facility: [facility] Address: [address] [place] [address] Performed By: #### 2 4321-2, 20931-0, 2777-1 ####[facility] LABCLIA [id number] [place] [address] [place] ALT [Catalytic activity/Vol] 35 U/L Normal 10-54 [facility] Comment on above: Order Comment: Speci men Type: BLOOD SPECIMENOrdering Facility: [facility] Address: [address] [place] [address] Performed By: #### 2 4321-2, 55935-0, 2777-1 ####[facility] LABCLIA [id number] [place] [address] [place] AST [Catalytic activity/Vol] 80 U/L High 14-40 [facility] Comment on above: Order Comment: Speci men Type: BLOOD SPECIMENOrdering Facility: [facility] Address: [address] [place], [place] [address] Performed By: #### 2 4321-2, 79980-4, 27702-01 ####[facility] LABCLIA [id number] [address] [address] [place] Bilirubin [Mass/Vol] 1.8 mg/dL High 0.2-1.3 [facility] Comment on above: Order Comment: Speci men Type: BLOOD SPECIMENOrdering Facility: [facility] Address: [address] [place], [place] [address] Performed By: #### 2 4321-2, 55585-4, 27702-01 ####[facility] LABCLIA [id number] [place] [address] [place] Bilirubin.conjugated [Mass/Vol] 1.0 mg/dL High <0.3 [facility] Comment on above: Order Comment: Speci men Type: BLOOD SPECIMENOrdering Facility: [facility] Address: [address] [place], [place] [address] Performed By: #### 2 4321-2, 63321-1, 2776-08 ####[facility] LABCLIA [id number] [place] [address] [place] Protein [Mass/Vol] 5.2 g/dL Low 6.3-8.0 [facility] Comment on above: Order Comment: Speci men Type: BLOOD SPECIMENOrdering Facility: [facility] Address: [address] [place], [place] [address] Performed By: #### 2 4321-2, 63293-0, 27702-01 ####[facility] LABCLIA [id number] [address] [address] [place] NUTRITIONon 11-17-2024 NUTRITION Normal [facility] PSA/PROSTATE SPECIFIC ANTIGE N SCREENINGon 11-17-2024 Prostate specific Ag [Mass/Vol] 0.52 ng/mL Normal <2.60 [facility] Comment on above: Order Comment: Speci men Type: BLOOD SPECIMENOrdering Facility: [facility] Address: [address] [place] [address] Result Comment: Tota l PSA test methodology used is the Electrochemiluminescence Immunoassay by [employer]. Total PSA values by differing methodologies cannot be interchanged. Performed By: #### P SAS1 ####[facility] LABIA [id number] [place] [address] [place] PT panel Coag (PPP)on 2024 INR Coag (PPP) [Relative time] 2.0 {INR} High 0.9-1.3 [facility] Comment on above: Order Comment: Speci men Type: BLOOD SPECIMENOrdering Facility: [facility] Address: [address] [place] [address] Result Comment: Sarah min K Antagonist (VKA) Therapeutic Range: INR 2 to 3 (Target INR of 2.5)Note: For patients treated with VKA drugs, such as warfarin, the [place] [employer] 2012 Guideline recommends [...] al. Chest 2012, 141:7S-47SEvanimnicolle RA, et al. [facility] 2017, 70: 252-289 Performed By: #### 3 255-7, 85592-5 ####[facility] LABIA [id number] [place] [address] [place] PT Coag (PPP) [Time] 20.6 s High 9.7-13.0 [facility] Comment on above: Order Comment: Speci men Type: BLOOD SPECIMENOrdering Facility: [facility] Address: [address] [place] [address] Performed By: #### 3 255-7, 89708-9 ####[facility] LABCLIA [id number] [place] [address] [place] PTT, ANTICOAGULANT THERAPYon 11-17-2024 aPTT Coag (PPP) [Time] 41.6 s High 23.0-32.4 [facility] Comment on above: Order Comment: Speci men Type: BLOOD SPECIMENOrdering Facility: [facility] Address: [address] [place] [address] Performed By: #### P TTAC ####[facility] LABCLIA [id number] [place] [address] [place] Phosphate SerPl-mCncon 11-17 Phosphate [Mass/Vol] 1.9 mg/dL Low 2.7-4.8 [facility] Comment on above: Order Comment: Speci men Type: BLOOD SPECIMENOrdering Facility: [facility] Address: [address] [place] [address] Performed By: #### 2 4321-2, 69590-8, 2777-1 ####[facility] LABCLIA [id number] [place] [address] [place] THERAPY NTon 11-17-2024 THERAPY NT Normal [facility] aPTT PPPon 11-17-2024 aPTT Coag (PPP) [Time] s High 23.0-32.4 [facility] Comment on above: Order Comment: Speci men Type: BLOOD SPECIMENOrdering Facility: [facility] Address: [address] [place] [address] Result Comment: Resu lt rechecked.Sample checked for clot. Performed By: #### 1 4979-9, PTTAC ####[facility] LABCLIA [id number] [id number], [place] [address] [place] ANES POSTPROC EVALon 025 ANES POSTPROC EVAL Normal [facility] ANES PRE-OPon 11-16-2024 ANES PRE-OP Normal [facility] Albumin Fld-mCncon 5 Albumin (Body fld) [Mass/Vol] 0.2 g/dL Normal See Comment [facility] Comment on above: Order Comment: Speci men Type: FLUID SPECIMENOrdering Facility: [facility] Address: [address] [place] [address] Result Comment: Body Fluid Albumin may be [...] document C49A. Joe PA: Clinical Laboratory Standards [place]: 2007.2. Amy JACKSON. Serum to ascites albumin gradient. UpToDate. 2015. Accessed on November 15, 2015.This test was developed, and its performance characteristics determined by the [facility] Department of Pathology and Laboratory Medicine. It has not been cleared or approved by the FDA. The [facility] Department of Pathology and Laboratory Medicine is regulated under CLIA as qualified to perform high-complexity testing. This test is used for clinical purposes. It should not be regarded as investigational or for research. Performed By: #### 1 795-4, 2881-1, 1747-5 ####[facility] LABCLIA [id number] [address] [place] Fluid Nom (Body fld) Ascites Fluid Normal C [facility] Comment on above: Order Comment: Speci men Type: FLUID SPECIMENOrdering Facility: [facility] Address: [address] [place] [address] Performed By: #### 1 795-4, 2881-1, 1747-5 ####[facility] LABCLIA [id number] [facility] [place] [address] [place] Amylase Fld-cCncon 5 Amylase (Body fld) [Catalytic activity/Vol] 17 U/L Normal See Comment [facility] Comment on above: Order Comment: Speci men Type: FLUID SPECIMENOrdering Facility: [facility] Address: [address] [place] [address] Result Comment: PLEU RAL FLUIDS:Amylase measurement in [...] CLSI document C49-A. JoePAULETTE: Clinical Laboratory Standards [place]; 2007.3. Kelby CONCEPCION, John BRAR, Star DJ. Use of cyst fluid CEA, CA19-9, and amylase for evaluation of pancreatic lesions. Clinical Biochemistry. 2009;42:8147-4593.This test was developed, and its performance characteristics determined by the [facility] Department of Pathology and Laboratory Medicine. It has not been cleared or approved by the FDA. The [facility] Department of Pathology and Laboratory Medicine is regulated under CLIA as qualified to perform high-complexity testing. This test is used for clinical purposes. It should not be regarded as investigational or for research. Performed By: #### 1 795-4, 2881-1, 1747-5 ####[facility] LABCLIA [id number] [address] [place] [address] [place] BODY FLUID CELL COUNTon 04-1 Clarity (Unsp spec) Clear Normal Clear [facility] Comment on above: Order Comment: Speci men Type: FLUID SPECIMENOrdering Facility: [facility] Address: [address] [place] [address] Performed By: #### C CBF, [id number] ####[facility] LABCLIA [id number] [address] [place] [address] [place] Color (Body fld) Yellow Normal Yellow [facility] Comment on above: Order Comment: Speci men Type: FLUID SPECIMENOrdering Facility: [facility] Address: [address] [place] [address] Performed By: #### C CBF, [id number] ####[facility] LABCLIA [id number] [address] [place] [address] [place] RBC Manual cnt (Body fld) [#/Vol] 3000 /uL High <2000 [facility] Comment on above: Order Comment: Speci men Type: FLUID SPECIMENOrdering Facility: [facility] Address: [address] [place] [address] Performed By: #### C CBF, [id number] ####[facility] LABCLIA [id number] [address] [place] [address] [place] Specimen source Nom (Body fld) Ascites Fluid Normal [facility] Comment on above: Order Comment: Speci men Type: FLUID SPECIMENOrdering Facility: [facility] Address: [address] [place] [address] Performed By: #### C CBF, [id number] ####[facility] LABCLIA [id number] [address] [place] [address] [place] WBC Manual cnt (Body fld) [#/Vol] 58 /uL Normal <1000 [facility] Comment on above: Order Comment: Speci men Type: FLUID SPECIMENOrdering Facility: [facility] Address: [address] [place] [address] Performed By: #### C CBF, [id number] ####[facility] LABCLIA [id number] [place] [address] [place] Bacteria Fld Culton 11-17-19 25 Bacteria identified Cx Nom (Body fld) CULTURE, BODY FLD: No growth GRAM STAIN: No organisms seen Few Polymorphonuclear leukocytes Gram stain performed on cytospun specimen. Gram stain from primary specimen Normal [facility] Comment on above: Performed By: #### 6 35-3, 611-4 ####[facility] LABCLIA [id number] [place] [address] [place] Bacteria Spec Anaerobe Culto n 11-16-2024 Bacteria identified Anaer cx Nom (Unsp spec) Negative Normal [facility] Comment on above: Performed By: #### 6 35-3, 611-4 ####[facility] LABCLIA [id number] [place] [address] [place] Basic metabolic 2000 panelon 11-16-2024 Anion gap [Moles/Vol] 10 mmol/L Normal 8-15 [facility] Comment on above: Order Comment: Speci men Type: BLOOD SPECIMENOrdering Facility: [facility] Address: [address] [place] [address] Performed By: #### 2 4321-2, 69534-9, 2777-1 ####[facility] LABCLIA [id number] [place] [address] [place] Calcium [Mass/Vol] 8.4 mg/dL Low 8.5-10.2 [facility] Comment on above: Order Comment: Speci men Type: BLOOD SPECIMENOrdering Facility: [facility] Address: [address] [place] [address] Performed By: #### 2 4321-2, 31351-7, 2777-1 ####[facility] LABCLIA [id number] [place] [address] [place] Chloride [Moles/Vol] 102 mmol/L Normal 98-107 [facility] Comment on above: Order Comment: Speci men Type: BLOOD SPECIMENOrdering Facility: [facility] Address: [address] [place] [address] Performed By: #### 2 4321-2, 66816-1, 2777-1 ####[facility] LABCLIA [id number] [place] [address] [place] CO2 [Moles/Vol] 18 mmol/L Low 22-30 [facility] Comment on above: Order Comment: Speci men Type: BLOOD SPECIMENOrdering Facility: [facility] Address: [address] [place] [address] Performed By: #### 2 4321-2, 45288-2, 2777- ####[facility] LABIA [id number] [place] [address] [place] Creatinine [Mass/Vol] 0.73 mg/dL Normal 0.73-1.22 [facility] Comment on above: Order Comment: Speci men Type: BLOOD SPECIMENOrdering Facility: [facility] Address: [address] [place] [address] Performed By: #### 2 4321-2, 62247-5, 2777- ####[facility] LABIA [id number] [place] [address] [place] Creatinine and Glomerular filtration rate.predicted panel (S/P/Bld) 105 mL/min/1.73m??? Normal >=60 [facility] Comment on above: Order Comment: Speci men Type: BLOOD SPECIMENOrdering Facility: [facility] Address: [address] [place] [address] Result Comment: Patric mated Glomerular Filtration Rate [...] actual GFR. Performed By: #### 2 4321-2, 04296-3, 2776- ####[facility] LABCLIA [id number] [address] [address] [place] Glucose [Mass/Vol] 181 mg/dL High 74-99 [facility] Comment on above: Order Comment: Ezekiel ramirez Type: BLOOD SPECIMENOrdering Facility: [facility] Address: [address] [place] [address] Result Comment: The [place] [employer] (ADA) provides guidance for cutoff [...] Standards of Medical Care in Diabetes 2016, [place] [employer]. Diabetes Care. 2016.39(Suppl 1). Performed By: #### 2 4321-2, 47591-7, 2776-08 ####[facility] LABIA [id number] [address] [address] [place] Potassium [Moles/Vol] 3.6 mmol/L Low 3.7-5.1 [facility] Comment on above: Order Comment: Ezekiel ramirez Type: BLOOD SPECIMENOrdering Facility: [facility] Address: [address] [place] [address] Performed By: #### 2 4321-2, 47493-2, 277-1 ####[facility] LABCLIA [id number] [address] [address] [place] Sodium [Moles/Vol] 130 mmol/L Low 136-144 [facility] Comment on above: Order Comment: Speci men Type: BLOOD SPECIMENOrdering Facility: [facility] Address: [address] [place] [address] Performed By: #### 2 4321-2, 31346-9, 2777- ####[facility] LABCLIA [id number] [place] [address] [place] Urea nitrogen [Mass/Vol] 9 mg/dL Normal 9-24 [facility] Comment on above: Order Comment: Speci men Type: BLOOD SPECIMENOrdering Facility: [facility] Address: [address] [place] [address] Performed By: #### 2 4321-2, 33052-3, 2777- ####[facility] LABIA [id number] [place] [address] [place] CBC W Auto Differential pane l (Bld)on 11-16-2024 Basophils (Bld) [#/Vol] 0.05 10*3/uL Normal <0.11 [facility] Comment on above: Order Comment: Speci men Type: BLOOD SPECIMENOrdering Facility: [facility] Address: [address] [place] [address] Performed By: #### 5 7021-8 ####[facility] LABCLIA [id number] [place] [address] [place] Basophils/100 WBC (Bld) 0.8 % Normal C [facility] Comment on above: Order Comment: Speci men Type: BLOOD SPECIMENOrdering Facility: [facility] Address: [address] [place] [address] Performed By: #### 5 7021-8 ####[facility] LABCLIA [id number] [place] [address] [place] Differential cell count method Nom (Bld) Auto Normal [facility] Comment on above: Order Comment: Speci men Type: BLOOD SPECIMENOrdering Facility: [facility] Address: [address] [place] [address] Performed By: #### 5 7021-8 ####[facility] LABCLIA [id number] [place] [address] [place] Eosinophils (Bld) [#/Vol] 0.22 10*3/uL Normal <0.46 [facility] Comment on above: Order Comment: Speci men Type: BLOOD SPECIMENOrdering Facility: [facility] Address: [address] [place] [address] Performed By: #### 5 7021-8 ####[facility] LABCLIA [id number] [place] [address] [place] Eosinophils/100 WBC (Bld) 3.6 % Normal [facility] Comment on above: Order Comment: Speci men Type: BLOOD SPECIMENOrdering Facility: [facility] Address: [address] [place] [address] Performed By: #### 5 7021-8 ####[facility] LABCLIA [id number] [place] [address] [place] Erythrocyte distribution width (RBC) [Ratio] 16.7 % High 11.5-15.0 [facility] Comment on above: Order Comment: Speci men Type: BLOOD SPECIMENOrdering Facility: [facility] Address: [address] [place] [address] Performed By: #### 5 7021-8 ####[facility] LABCLIA [id number] [place] [address] [place] Hematocrit (Bld) [Volume fraction] 24.0 % Low 39.0-51.0 [facility] Comment on above: Order Comment: Speci men Type: BLOOD SPECIMENOrdering Facility: [facility] Address: [address] [place] [address] Performed By: #### 5 7021-8 ####[facility] LABCLIA [id number] [place] [address] [place] Hemoglobin (Bld) [Mass/Vol] 8.3 g/dL Low 13.0-17.0 [facility] Comment on above: Order Comment: Speci men Type: BLOOD SPECIMENOrdering Facility: [facility] Address: [address] [place] [address] Performed By: #### 5 7021-8 ####[facility] LABCLIA [id number] [place] [address] [place] Immature granulocytes (Bld) [#/Vol] 0.05 10*3/uL Normal <0.10 [facility] Comment on above: Order Comment: Speci men Type: BLOOD SPECIMENOrdering Facility: [facility] Address: [address] [place] [address] Performed By: #### 5 7021-8 ####[facility] LABIA [id number] [place] [address] [place] Immature granulocytes/100 WBC (Bld) 0.8 % Normal [facility] Comment on above: Order Comment: Speci men Type: BLOOD SPECIMENOrdering Facility: [facility] Address: [address] [place] [address] Performed By: #### 5 7021-8 ####[facility] LABCLIA [id number] [place] [address] [place] Lymphocytes (Bld) [#/Vol] 0.75 10*3/uL Low 1.00-4.00 [facility] Comment on above: Order Comment: Speci men Type: BLOOD SPECIMENOrdering Facility: [facility] Address: [address] [place] [address] Performed By: #### 5 7021-8 ####[facility] LABCLIA [id number] [place] [address] [place] Lymphocytes/100 WBC (Bld) 12.4 % Normal [facility] Comment on above: Order Comment: Speci men Type: BLOOD SPECIMENOrdering Facility: [facility] Address: [address] [place] [address] Performed By: #### 5 7021-8 ####[facility] LABIA [id number] [place] [address] [place] MCH (RBC) [Entitic mass] 31.9 pg Normal 26.0-34.0 [facility] Comment on above: Order Comment: Speci men Type: BLOOD SPECIMENOrdering Facility: [facility] Address: [address] [place] [address] Performed By: #### 5 7021-8 ####[facility] LABIA [id number] [place] [address] [place] MCHC (RBC) [Mass/Vol] 34.6 g/dL Normal 30.5-36.0 [facility] Comment on above: Order Comment: Speci men Type: BLOOD SPECIMENOrdering Facility: [facility] Address: [address] [place] [address] Performed By: #### 5 7021-8 ####[facility] LABIA [id number] [place] [address] [place] MCV (RBC) [Entitic vol] 92.3 fL Normal 80.0-100.0 C [facility] Comment on above: Order Comment: Speci men Type: BLOOD SPECIMENOrdering Facility: [facility] Address: [address] [place] [address] Performed By: #### 5 7021-8 ####[facility] LABIA [id number] [place] [address] [place] Monocytes (Bld) [#/Vol] 0.68 10*3/uL Normal <0.87 [facility] Comment on above: Order Comment: Speci men Type: BLOOD SPECIMENOrdering Facility: [facility] Address: [address] [place] [address] Performed By: #### 5 7021-8 ####[facility] LABCLIA [id number] [address] [address] [place] Monocytes/100 WBC (Bld) 11.3 % Normal [facility] Comment on above: Order Comment: Speci men Type: BLOOD SPECIMENOrdering Facility: [facility] Address: [address] [place] [address] Performed By: #### 5 7021-8 ####[facility] LABCLIA [id number] [place] [address] [place] Neutrophils (Bld) [#/Vol] 4.28 10*3/uL Normal 1.45-7.50 [facility] Comment on above: Order Comment: Speci men Type: BLOOD SPECIMENOrdering Facility: [facility] Address: [address] [place] [address] Performed By: #### 5 7021-8 ####[facility] LABCLIA [id number] [place] [address] [place] Neutrophils/100 WBC (Bld) 71.1 % Normal [facility] Comment on above: Order Comment: Speci men Type: BLOOD SPECIMENOrdering Facility: [facility] Address: [address] [place] [address] Performed By: #### 5 7021-8 ####[facility] LABCLIA [id number] [address] [address] [place] Nucleated RBC (Bld) [#/Vol] 10*3/uL Normal <0.01 [facility] Comment on above: Order Comment: Speci men Type: BLOOD SPECIMENOrdering Facility: [facility] Address: [address] [place] [address] Performed By: #### 5 7021-8 ####[facility] LABCLIA [id number] [place] [address] [place] Nucleated RBC/100 WBC (Bld) [Ratio] 0.0 /100 WBC Normal [facility] Comment on above: Order Comment: Speci men Type: BLOOD SPECIMENOrdering Facility: [facility] Address: [address] [place] [address] Performed By: #### 5 7021-8 ####[facility] LABCLIA [id number] [place] [address] [place] Platelet mean volume (Bld) [Entitic vol] 11.8 fL Normal 9.0-12.7 [facility] Comment on above: Order Comment: Speci men Type: BLOOD SPECIMENOrdering Facility: [facility] Address: [address] [place] [address] Performed By: #### 5 7021-8 ####[facility] LABIA [id number] [place] [address] [place] Platelets (Bld) [#/Vol] 59 10*3/uL Low 150-400 C [facility] Comment on above: Order Comment: Speci men Type: BLOOD SPECIMENOrdering Facility: [facility] Address: [address] [place] [address] Result Comment: No c lot detected.Results checked and verified. Performed By: #### 5 7021-8 ####[facility] LABCLIA [id number] [place] [address] [place] RBC (Bld) [#/Vol] 2.60 10*6/uL Low 4.20-6.00 [facility] Comment on above: Order Comment: Speci men Type: BLOOD SPECIMENOrdering Facility: [facility] Address: [address] [place] [address] Performed By: #### 5 7021-8 ####[facility] LABIA [id number] [address] [place] [address] [place] WBC (Bld) [#/Vol] 6.03 10*3/uL Normal 3.70-11.00 [facility] Comment on above: Order Comment: Speci men Type: BLOOD SPECIMENOrdering Facility: [facility] Address: [address] [place] [address] Performed By: #### 5 7021-8 ####[facility] LABCLIA [id number] [address] [place] CONSULT PROGon 11-16-2024 CONSULT PROG Normal [facility] CYTOLOGY NON-GYNon AP DISCLAIMER Normal [facility] Comment on above: Order Comment: Speci men Type: FLUID SPECIMENOrdering Facility: [facility] Address: [address] [place] [address] Result Comment: Shellie pugh Developed Test (LDT) Disclaimer:Performance characteristics of immunohistochemical, immunofluorescent, and chromogenic in-situ hybridization tests have been determined by the performing laboratory within [facility] Pathology and Laboratory Medicine Department ([facility], [facility], [facility], [facility], [facility], [facility], or [facility]) in a manner consistent with CLIA requirements. One or more of these tests may not have been cleared or approved by the FDA. [facility] is regulated under CLIA as qualified to perform high-complexity testing. These tests are used for clinical purposes. These should not be regarded as investigational or for research. Positive and negative controls stain appropriately. Performed By: #### C YTONON ####[facility] LABCLIA [id number] [place] [address] [place] CASE REPORT Normal [facility] Comment on above: Order Comment: Speci men Type: FLUID SPECIMENOrdering Facility: [facility] Address: [address] [place] [address] Result Comment: [facility] Cytology Report Case: [id number] Provider: Young Cruz MD Collected: 11/16/2024 08:42 AMOrdering Location: [place] [address] Received: 11/16/2024 06:20 PMPathologist: Stefani Mcneal MDSpecimen: Peritoneal Fluid. Performed By: #### C YTONON ####[facility] LABCLIA [id number] [address] [place] CLINICAL HISTORY Cirrhosis with ascites Normal [facility] Comment on above: Order Comment: Speci men Type: FLUID SPECIMENOrdering Facility: [facility] Address: [address] [place] [address] Performed By: #### C YTONON ####[facility] LABCLIA [id number] [address] FINAL DIAGNOSIS Normal [facility] Comment on above: Order Comment: Speci men Type: FLUID SPECIMENOrdering Facility: [facility] Address: [address] [place] [address] Result Comment: A - Peritoneal Fluid Negative for malignant cells. Chronic inflammation.The following cell blocks were associated with this case:A1 Cell Block, Alcohol Fixed at 1223 EDT Performed By: #### C YTONON ####[facility] LABCLIA [id number] [address] FINAL PERFORMING LAB Normal [facility] Comment on above: Order Comment: Speci men Type: FLUID SPECIMENOrdering Facility: [facility] Address: [address] [place] [address] Result Comment: Tech nical component, director of rehabilitative services screening performed at: [facility], [address] [place] [address] CLIA: [id number] interpretation performed at: [facility], [address] [place] [address] CLIA# [id number] Director: Titi Voss MD Performed By: #### C YTONON ####[facility] LABCLIA [id number] [address] [place] GROSS DESCRIPTION [facility] Comment on above: Order Comment: Speci men Type: FLUID SPECIMENOrdering Facility: [facility] Address: [address] [place] [address] Result Comment: A. P eritoneal Fluid.1450 cc opaque red fluid . ThinPrep and Cell Block prepared. Performed By: #### C YTONON ####[facility] LABCLIA [id number] [place] [address] [place] [facility] [place] Comprehensive Metabolic Prof ilon 11-16-2024 ALB Normal 3.5-5.0 [facility] Comment on above: Result Comment: Canc elled via OM: Order cancelled - Patient discharged Performed By: #### L 500.4050 ####[facility] [address] [facility] [address] ALK PHOS Normal 40-129 [facility] Comment on above: Result Comment: Canc elled via OM: Order cancelled - Patient discharged Performed By: #### L 500.4050 ####[facility] [address] [facility] [address] ALT Normal <=46 [facility] Comment on above: Result Comment: Canc elled via OM: Order cancelled - Patient discharged Performed By: #### L 500.4050 ####[facility] [address] [facility] [address] AST Normal <=37 [facility] Comment on above: Result Comment: Canc elled via OM: Order cancelled - Patient discharged Performed By: #### L 500.4050 ####[facility] [address] [facility] [address] BUN Normal 4-19 [facility] Comment on above: Result Comment: Canc elled via OM: Order cancelled - Patient discharged Performed By: #### L 500.4050 ####[facility] [address] [place], [address] BUN/CRE Normal 10-20 [facility] Comment on above: Result Comment: Canc elled via OM: Order cancelled - Patient discharged Performed By: #### L 500.4050 ####[facility] [address] [place], [address] Calcium Normal 7.6-11.0 [facility] Comment on above: Result Comment: Canc elled via OM: Order cancelled - Patient discharged Performed By: #### L 500.4050 ####[facility] [address] [place], [address] CL Normal 98-108 [facility] Comment on above: Result Comment: Canc elled via OM: Order cancelled - Patient discharged Performed By: #### L 500.4050 ####[facility] [address] [place], [address] CO2 Normal 21.0-32.0 [facility] Comment on above: Result Comment: Canc elled via OM: Order cancelled - Patient discharged Performed By: #### L 500.4050 ####[facility] [address] [place], [address] CREAT,SERUM Normal 0.70-1.20 [facility] Comment on above: Result Comment: Canc elled via OM: Order cancelled - Patient discharged Performed By: #### L 500.4050 ####[facility] [address] [place], [address] eGFR Normal >60 [facility] Comment on above: Result Comment: Canc elled via OM: Order cancelled - Patient discharged Performed By: #### L 500.4050 ####[facility] [address] [place], [address] GAP Normal 5-15 [facility] Comment on above: Result Comment: Canc elled via OM: Order cancelled - Patient discharged Performed By: #### L 500.4050 ####[facility] [address] [place], [place], [address] GLU Normal 70-99 [facility] Comment on above: Result Comment: Canc elled via OM: Order cancelled - Patient discharged Performed By: #### L 500.4050 ####[facility] [address] [place], [address] Potassium Normal 3.3-5.1 [facility] Comment on above: Result Comment: Canc elled via OM: Order cancelled - Patient discharged Performed By: #### L 500.4050 ####[facility] [address] [place], [address] T BILI Normal 0.00-1.30 [facility] Comment on above: Result Comment: Canc elled via OM: Order cancelled - Patient discharged Performed By: #### L 500.4050 ####[facility] [address] [place], [address] T PROT Normal 5.9-8.4 [facility] Comment on above: Result Comment: Canc elled via OM: Order cancelled - Patient discharged Performed By: #### L 500.4050 ####[facility] [address] [place], [address] Comprehensive Metabolic Profil Normal 133-145 [facility] Comment on above: Result Comment: Canc elled via OM: Order cancelled - Patient discharged Performed By: #### L 500.4050 ####[facility] [address] [place], [address] ECG COMPLETEon 11-16-2024 ECG COMPLETE Normal [facility] Fibrinogen PPP-mCncon 2024 Fibrinogen Coag (PPP) [Mass/Vol] 127 mg/dL Low 200-400 [facility] Comment on above: Order Comment: Speci men Type: BLOOD SPECIMENOrdering Facility: [facility] Address: [address] [place] [address] Performed By: #### 3 255-7, 24435-6 ####[facility] LABIA [id number] [place] [address] [place] Hepatic function 2000 panelo n 11-16-2024 Albumin [Mass/Vol] 2.8 g/dL Low 3.9-4.9 [facility] Comment on above: Order Comment: Speci men Type: BLOOD SPECIMENOrdering Facility: [facility] Address: [address] [place] [address] Performed By: #### 2 4321-2, 09522-5, 2777-1 ####[facility] LABIA [id number] [place] [address] [place] ALP [Catalytic activity/Vol] 295 U/L High 38-113 [facility] Comment on above: Order Comment: Speci men Type: BLOOD SPECIMENOrdering Facility: [facility] Address: [address] [place] [address] Performed By: #### 2 4321-2, 89265-1, 2777-1 ####[facility] LABIA [id number] [address] [place] ALT [Catalytic activity/Vol] 38 U/L Normal 10-54 [facility] Comment on above: Order Comment: Speci men Type: BLOOD SPECIMENOrdering Facility: [facility] Address: [address] [place] [address] Performed By: #### 2 4321-2, 31061-4, 2777-1 ####[facility] LABIA [id number] [place] [id number] [place] AST [Catalytic activity/Vol] 88 U/L High 14-40 [facility] Comment on above: Order Comment: Speci men Type: BLOOD SPECIMENOrdering Facility: [facility] Address: [address] [place] [address] Performed By: #### 2 4321-2, 23013-8, 2776-08 ####[facility] LABCLIA [id number] [address] [address] [place] Bilirubin [Mass/Vol] 1.8 mg/dL High 0.2-1.3 [facility] Comment on above: Order Comment: Speci men Type: BLOOD SPECIMENOrdering Facility: [facility] Address: [address] [place] [address] Performed By: #### 2 4321-2, 45502-9, 2776-08 ####[facility] LABCLIA [id number] [place] [address] [place] Bilirubin.conjugated [Mass/Vol] 0.9 mg/dL High <0.3 [facility] Comment on above: Order Comment: Speci men Type: BLOOD SPECIMENOrdering Facility: [facility] Address: [address] [place] [address] Performed By: #### 2 4320-2, 90170-3, 2776-08 ####[facility] LABCLIA [id number] [place] [address] [place] Protein [Mass/Vol] 5.5 g/dL Low 6.3-8.0 [facility] Comment on above: Order Comment: Speci men Type: BLOOD SPECIMENOrdering Facility: [facility] Address: [address] [place] [address] Performed By: #### 2 4320-2, 42618-3, 2776-08 ####[facility] LABCLIA [id number] [address] [address] [place] MANUAL DIFFERENTIAL, BODY FL UIDon 11-16-2024 DIF TTL, BODY FLUID 100 cells counted Normal [facility] Comment on above: Order Comment: Speci men Type: FLUID SPECIMENOrdering Facility: [facility] Address: [address] [place] [address] Performed By: #### C CBF, [id number] ####[facility] LABCLIA [id number] [facility] [address] [place] [address] [place] LYMPH%, BF 47 % High 18-36 [facility] Comment on above: Order Comment: Speci men Type: FLUID SPECIMENOrdering Facility: [facility] Address: [address] [place] [address] Performed By: #### C CBF, [id number] ####[facility] LABCLIA [id number] [facility] [address] [place] [address] [place] MACRO%, BF 6 % Low 64-80 [facility] Comment on above: Order Comment: Speci men Type: FLUID SPECIMENOrdering Facility: [facility] Address: [address] [place] [address] Performed By: #### C CBF, [id number] ####[facility] LABCLIA [id number] [address], [place] [address] [place] MESO %, BF 25 % High 0-2 [facility] Comment on above: Order Comment: Speci men Type: FLUID SPECIMENOrdering Facility: [facility] Address: [address] [place] [address] Performed By: #### C CBF, [id number] ####[facility] LABCLIA [id number] [address], [facility]95 [place] MONO% BF 8 % Normal [facility] Comment on above: Order Comment: Speci men Type: FLUID SPECIMENOrdering Facility: [facility] Address: [address] [place] [address] Performed By: #### C CBF, [id number] ####[facility] LABCLIA [id number] [address], [facility] [place] NEUT%, BF 14 % High 0-1 [facility] Comment on above: Order Comment: Speci men Type: FLUID SPECIMENOrdering Facility: [facility] Address: [address] [place] [address] Performed By: #### C CBF, [id number] ####[facility] LABCLIA [id number] [place] [id number] [place] NURSING PROGon 11-16-2024 NURSING PROG Normal [facility] NURSING PROG Normal [facility] PT panel Coag (PPP)on 2024 INR Coag (PPP) [Relative time] 2.1 {INR} High 0.9-1.3 [facility] Comment on above: Order Comment: Speci men Type: BLOOD SPECIMENOrdering Facility: [facility] Address: [address] [place] [address] Result Comment: Sarah min K Antagonist (VKA) Therapeutic Range: INR 2 to 3 (Target INR of 2.5)Note: For patients treated with VKA drugs, such as warfarin, the [employer] [employer] 2012 Guideline recommends [...] al. Chest 2012, 141:7S-47SNishimura RA, et al. [facility] 2017, 70: 252-289 Performed By: #### 3 4528-0 ####[facility] LABCLIA [id number] [address] [address] [place] PT Coag (PPP) [Time] 21.5 s High 9.7-13.0 [facility] Comment on above: Order Comment: Ezekiel ramirez Type: BLOOD SPECIMENOrdering Facility: [facility] Address: [address] [place] [address] Performed By: #### 3 4528-0 ####[facility] LABCLIA [id number] [place] [address] [place] INR Coag (PPP) [Relative time] 2.0 {INR} High 0.9-1.3 [facility] Comment on above: Order Comment: Ezekiel ramirez Type: BLOOD SPECIMENOrdering Facility: [facility] Address: [address] [place] [address] Result Comment: Sarah min K Antagonist (VKA) Therapeutic Range: INR 2 to 3 (Target INR of 2.5)Note: For patients treated with VKA drugs, such as warfarin, the [place] [employer] 2012 Guideline recommends [...] al. Chest 2012, 141:7S-47SNishimura RA, et al. [facility] 2017, 70: 252-289 Performed By: #### 3 255-7, 64151-6 ####[facility] [id number] [place] [id number] [place] PT Coag (PPP) [Time] 20.3 s High 9.7-13.0 [facility] Comment on above: Order Comment: Ezekiel ramirez Type: BLOOD SPECIMENOrdering Facility: [facility] Address: [address] [place] [address] Performed By: #### 3 255-7, 27520-5 ####[facility] LABIA [id number] [place] [id number] [place] Phosphate SerPl-mCncon 11-16 Phosphate [Mass/Vol] 2.3 mg/dL Low 2.7-4.8 [facility] Comment on above: Order Comment: Speci men Type: BLOOD SPECIMENOrdering Facility: [facility] Address: [address] [place] [address] Performed By: #### 2 4321-2, 59497-7, 2777-1 ####[facility] LABCLIA [id number] [place] [address] [place] Prot Fld-mCncon 11-16-2024 Protein (Body fld) [Mass/Vol] 0.5 g/dL Normal See Comment [facility] Comment on above: Order Comment: Speci men Type: FLUID SPECIMENOrdering Facility: [facility] Address: [address] [place] [address] Result Comment: Sero us fluids: Effusions are [...] document C49A. PAULETTE Diaz: Clinical Laboratory Standards [place]: 2007. Performed By: #### 1 795-4, 2881-1, 1747-5 ####[facility] LABIA [id number] [place] [id number] [place] THERAPY NTon 11-16-2024 THERAPY NT Normal [facility] THERAPY NT Normal [facility] BLOOD TB SCREENon 11-15-2024 M. tuberculosis tuberculin stim IFN-g Ql (Bld) Indeterminate Normal [facility] Comment on above: Order Comment: Speci men Type: BLOOD SPECIMENOrdering Facility: [facility] Address: [address] [place] [address] Performed By: #### I NFTBP ####[facility] LABCLIA [id number] [place] [address] [place] MITOGEN MINUS NIL 0.25 IU/mL Low >=0.50 [facility] Comment on above: Order Comment: Speci men Type: BLOOD SPECIMENOrdering Facility: [facility] Address: [address] [place] [address] Performed By: #### I NFTBP ####[facility] LABCLIA [id number] [place] [address] [place] TB GAMMA INTERPRETATION Normal [facility] Comment on above: Order Comment: Speci men Type: BLOOD SPECIMENOrdering Facility: [facility] Address: [address] [place] [address] Performed By: #### I NFTBP ####[facility] LABCLIA [id number] [address] [place] TB NIL 0.01 IU/mL Normal <=8.00 [facility] Comment on above: Order Comment: Speci men Type: BLOOD SPECIMENOrdering Facility: [facility] Address: [address] [place] [address] Performed By: #### I NFTBP ####[facility] LABCLIA [id number] [place] [address] [place] TB1 AG MINUS NIL 0.00 IU/mL Normal <0.35 [facility] Comment on above: Order Comment: Speci men Type: BLOOD SPECIMENOrdering Facility: [facility] Address: [address] [place] [address] Performed By: #### I NFTBP ####[facility] LABCLIA [id number] [place] [address] [place] TB2 AG MINUS NIL 0.01 IU/mL Normal <0.35 [facility] Comment on above: Order Comment: Speci men Type: BLOOD SPECIMENOrdering Facility: [facility] Address: [address] [place] [address] Performed By: #### I NFTBP ####[facility] LABCLIA [id number] [place] [address] [place] CASE MANAGEMon 11-15-2024 CASE MANAGEM Normal [facility] CASE MANAGEM Normal [facility] CBC W Auto Differential pane l (Bld)on 11-15-2024 Basophils (Bld) [#/Vol] 0.05 10*3/uL Normal <0.11 [facility] Comment on above: Order Comment: Speci men Type: BLOOD SPECIMENOrdering Facility: [facility] Address: [address] [place] [address] Performed By: #### 5 7021-8 ####[facility] LABCLIA [id number] [place] [address] [place] Basophils/100 WBC (Bld) 0.8 % Normal [facility] Comment on above: Order Comment: Speci men Type: BLOOD SPECIMENOrdering Facility: [facility] Address: [address] [place] [address] Performed By: #### 5 7021-8 ####[facility] LABCLIA [id number] [place] [address] [place] Differential cell count method Nom (Bld) Auto Normal [facility] Comment on above: Order Comment: Speci men Type: BLOOD SPECIMENOrdering Facility: [facility] Address: [address] [place] [address] Performed By: #### 5 7021-8 ####[facility] LABCLIA [id number] [place] [address] [place] Eosinophils (Bld) [#/Vol] 0.28 10*3/uL Normal <0.46 [facility] Comment on above: Order Comment: Speci men Type: BLOOD SPECIMENOrdering Facility: [facility] Address: [address] [place] [address] Performed By: #### 5 7021-8 ####[facility] LABCLIA [id number] [address], [facility]95 [place] Eosinophils/100 WBC (Bld) 4.6 % Normal [facility] Comment on above: Order Comment: Speci men Type: BLOOD SPECIMENOrdering Facility: [facility] Address: [address] [place] [address] Performed By: #### 5 7021-8 ####[facility] LABCLIA [id number] [address], [place] [address] [place] Erythrocyte distribution width (RBC) [Ratio] 16.8 % High 11.5-15.0 [facility] Comment on above: Order Comment: Speci men Type: BLOOD SPECIMENOrdering Facility: [facility] Address: [address] [place] [address] Performed By: #### 5 7021-8 ####[facility] LABIA [id number] [address], [place] [address] [place] Hematocrit (Bld) [Volume fraction] 22.9 % Low 39.0-51.0 [facility] Comment on above: Order Comment: Speci men Type: BLOOD SPECIMENOrdering Facility: [facility] Address: [address] [place] [address] Performed By: #### 5 7021-8 ####[facility] LABCLIA [id number] [address], [facility]95 [place] Hemoglobin (Bld) [Mass/Vol] 7.6 g/dL Low 13.0-17.0 [facility] Comment on above: Order Comment: Speci men Type: BLOOD SPECIMENOrdering Facility: [facility] Address: [address] [place] [address] Performed By: #### 5 7021-8 ####[facility] LABIA [id number] [place] AVENUEDESK [id number] [place] Immature granulocytes (Bld) [#/Vol] 0.03 10*3/uL Normal <0.10 [facility] Comment on above: Order Comment: Speci men Type: BLOOD SPECIMENOrdering Facility: [facility] Address: [address] [place] [address] Performed By: #### 5 7021-8 ####[facility] LABCLIA [id number] [place] [address] [place] Immature granulocytes/100 WBC (Bld) 0.5 % Normal [facility] Comment on above: Order Comment: Speci men Type: BLOOD SPECIMENOrdering Facility: [facility] Address: [address] [place] [address] Performed By: #### 5 7021-8 ####[facility] LABCLIA [id number] [place] [address] [place] Lymphocytes (Bld) [#/Vol] 0.70 10*3/uL Low 1.00-4.00 [facility] Comment on above: Order Comment: Speci men Type: BLOOD SPECIMENOrdering Facility: [facility] Address: [address] [place] [address] Performed By: #### 5 7021-8 ####[facility] LABCLIA [id number] [place] [address] [place] Lymphocytes/100 WBC (Bld) 11.5 % Normal [facility] Comment on above: Order Comment: Speci men Type: BLOOD SPECIMENOrdering Facility: [facility] Address: [address] [place] [address] Performed By: #### 5 7021-8 ####[facility] LABCLIA [id number] [place] [address] [place] MCH (RBC) [Entitic mass] 30.6 pg Normal 26.0-34.0 [facility] Comment on above: Order Comment: Speci men Type: BLOOD SPECIMENOrdering Facility: [facility] Address: [address] [place] [address] Performed By: #### 5 7021-8 ####[facility] LABCLIA [id number] [place] [address] [place] MCHC (RBC) [Mass/Vol] 33.2 g/dL Normal 30.5-36.0 [facility] Comment on above: Order Comment: Speci men Type: BLOOD SPECIMENOrdering Facility: [facility] Address: [address] [place] [address] Performed By: #### 5 7021-8 ####[facility] LABCLIA [id number] [place] [address] [place] MCV (RBC) [Entitic vol] 92.3 fL Normal 80.0-100.0 [facility] Comment on above: Order Comment: Speci men Type: BLOOD SPECIMENOrdering Facility: [facility] Address: [address] [place] [address] Performed By: #### 5 7021-8 ####[facility] LABIA [id number] [place] [address] [place] Monocytes (Bld) [#/Vol] 0.73 10*3/uL Normal <0.87 [facility] Comment on above: Order Comment: Speci men Type: BLOOD SPECIMENOrdering Facility: [facility] Address: [address] [place] [address] Performed By: #### 5 7021-8 ####[facility] LABCLIA [id number] [place] [address] [place] Monocytes/100 WBC (Bld) 12.0 % Normal [facility] Comment on above: Order Comment: Speci men Type: BLOOD SPECIMENOrdering Facility: [facility] Address: [address] [place] [address] Performed By: #### 5 7021-8 ####[facility] LABCLIA [id number] [address] [address] [place] Neutrophils (Bld) [#/Vol] 4.30 10*3/uL Normal 1.45-7.50 [facility] Comment on above: Order Comment: Speci men Type: BLOOD SPECIMENOrdering Facility: [facility] Address: [address] [place] [address] Performed By: #### 5 7021-8 ####[facility] LABCLIA [id number] [facility] [address] [place] Neutrophils/100 WBC (Bld) 70.6 % Normal [facility] Comment on above: Order Comment: Speci men Type: BLOOD SPECIMENOrdering Facility: [facility] Address: [address] [place] [address] Performed By: #### 5 7021-8 ####[facility] LABCLIA [id number] [place] [address] [place] Nucleated RBC (Bld) [#/Vol] 10*3/uL Normal <0.01 [facility] Comment on above: Order Comment: Speci men Type: BLOOD SPECIMENOrdering Facility: [facility] Address: [address] [place] [address] Performed By: #### 5 7021-8 ####[facility] LABCLIA [id number] [place] [address] [place] Nucleated RBC/100 WBC (Bld) [Ratio] 0.0 /100 WBC Normal [facility] Comment on above: Order Comment: Speci men Type: BLOOD SPECIMENOrdering Facility: [facility] Address: [address] [place] [address] Performed By: #### 5 7021-8 ####[facility] LABCLIA [id number] [place] [id number] [place] Platelet mean volume (Bld) [Entitic vol] 12.2 fL Normal 9.0-12.7 [facility] Comment on above: Order Comment: Speci men Type: BLOOD SPECIMENOrdering Facility: [facility] Address: [address] [place] [address] Performed By: #### 5 7021-8 ####[facility] LABIA [id number] [place] [address] [place] Platelets (Bld) [#/Vol] 53 10*3/uL Low 150-400 [facility] Comment on above: Order Comment: Speci men Type: BLOOD SPECIMENOrdering Facility: [facility] Address: [address] [place] [address] Performed By: #### 5 7021-8 ####[facility] LABIA [id number] [place] [address] [place] RBC (Bld) [#/Vol] 2.48 10*6/uL Low 4.20-6.00 [facility] Comment on above: Order Comment: Speci men Type: BLOOD SPECIMENOrdering Facility: [facility] Address: [address] [place] [address] Performed By: #### 5 7021-8 ####[facility] [id number] [place] [address] [place] WBC (Bld) [#/Vol] 6.09 10*3/uL Normal 3.70-11.00 [facility] Comment on above: Order Comment: Speci men Type: BLOOD SPECIMENOrdering Facility: [facility] Address: [address] [place] [address] Performed By: #### 5 7021-8 ####[facility] LABIA [id number] [place] [id number] [place] CBC W/Diff, Automatedon 11-02 Absolute Neut Normal 2.0-7.7 [facility] Comment on above: Result Comment: Canc elled via OM: Order cancelled - Patient discharged Performed By: #### L 500.2500, L100.0100 ####[facility] [address] [place], [address] HCT Normal 40-54 [facility] Comment on above: Result Comment: Canc elled via OM: Order cancelled - Patient discharged Performed By: #### L 500.2500, L100.0100 ####[facility] [address] [place], [address] HGB Normal 13.0-16.5 [facility] Comment on above: Result Comment: Canc elled via OM: Order cancelled - Patient discharged Performed By: #### L 500.2500, L100.0100 ####[facility] [address] [place], [address] MCH Normal 27.0-32.0 [facility] Comment on above: Result Comment: Canc elled via OM: Order cancelled - Patient discharged Performed By: #### L 500.2500, L100.0100 ####[facility] [address] [place], [address] MCHC Normal 32-36 [facility] Comment on above: Result Comment: Canc elled via OM: Order cancelled - Patient discharged Performed By: #### L 500.2500, L100.0100 ####[facility] [address] [place], [address] MCV Normal 80-94 [facility] Comment on above: Result Comment: Canc elled via OM: Order cancelled - Patient discharged Performed By: #### L 500.2500, L100.0100 ####[facility] [address] [place], [address] NEUT% Normal 47-70 [facility] Comment on above: Result Comment: Canc elled via OM: Order cancelled - Patient discharged Performed By: #### L 500.2500, L100.0100 ####[facility] [address] [place], [address] PLT Normal 150-450 [facility] Comment on above: Result Comment: Canc elled via OM: Order cancelled - Patient discharged Performed By: #### L 500.2500, L100.0100 ####[facility] [address] [place], [address] RBC Normal 4.6-6.2 [facility] Comment on above: Result Comment: Canc elled via OM: Order cancelled - Patient discharged Performed By: #### L 500.2500, L100.0100 ####[facility] [address] [place], [address] RDW CV Normal 11.6-14.6 [facility] Comment on above: Result Comment: Canc elled via OM: Order cancelled - Patient discharged Performed By: #### L 500.2500, L100.0100 ####[facility] [address] [place], [address] RDW SD Normal 35.1-43.9 [facility] Comment on above: Result Comment: Canc elled via OM: Order cancelled - Patient discharged Performed By: #### L 500.2500, L100.0100 ####[facility] [address] [place], [address] WBC Normal 4.4-11.0 [facility] Comment on above: Result Comment: Canc elled via OM: Order cancelled - Patient discharged Performed By: #### L 500.2500, L100.0100 ####[facility] [address] [place], [address] CNOVon 11-15-2024 CNOV Normal [facility] CONSULTon 11-15-2024 CONSULT Normal [facility] CONSULT PROGon 11-15-2024 CONSULT PROG Normal [facility] Comprehensive Metabolic Prof ilon 11-15-2024 ALB Normal 3.5-5.0 [facility] Comment on above: Result Comment: Canc elled via OM: Order cancelled - Patient discharged Performed By: #### L 500.4050 ####[facility] [address] [place], [address] ALK PHOS Normal 40-129 [facility] Comment on above: Result Comment: Canc elled via OM: Order cancelled - Patient discharged Performed By: #### L 500.4050 ####[facility] [address] [place], [address] ALT Normal <=46 [facility] Comment on above: Result Comment: Canc elled via OM: Order cancelled - Patient discharged Performed By: #### L 500.4050 ####[facility] [address] [place], [address] AST Normal <=37 [facility] Comment on above: Result Comment: Canc elled via OM: Order cancelled - Patient discharged Performed By: #### L 500.4050 ####[facility] [address] [place], [address] BUN Normal 4-19 [facility] Comment on above: Result Comment: Canc elled via OM: Order cancelled - Patient discharged Performed By: #### L 500.4050 ####[facility] [address] [place], [address] Result Comment: Canc elled via OM: MD Ordered Performed By: #### L 500.2500, L100.0100 ####[facility] [address] [place], [address] BUN/CRE Normal 10-20 [facility] Comment on above: Result Comment: Canc elled via OM: Order cancelled - Patient discharged Performed By: #### L 500.4050 ####[facility] [address] [place], [address] Result Comment: Canc elled via OM: MD Ordered Performed By: #### L 500.2500, L100.0100 ####[facility] [address] [place], [address] Calcium Normal 7.6-11.0 [facility] Comment on above: Result Comment: Canc elled via OM: Order cancelled - Patient discharged Performed By: #### L 500.4050 ####[facility] [address] [place], [address] Result Comment: Canc elled via OM: MD Ordered Performed By: #### L 500.2500, L100.0100 ####[facility] [address] [place], [address] CL Normal 98-108 [facility] Comment on above: Result Comment: Canc elled via OM: Order cancelled - Patient discharged Performed By: #### L 500.4050 ####[facility] [address] [place], [address] Result Comment: Canc elled via OM: MD Ordered Performed By: #### L 500.2500, L100.0100 ####[facility] [address] [place], [address] CO2 Normal 21.0-32.0 [facility] Comment on above: Result Comment: Canc elled via OM: Order cancelled - Patient discharged Performed By: #### L 500.4050 ####[facility] [address] [place], [address] Result Comment: Canc elled via OM: MD Ordered Performed By: #### L 500.2500, L100.0100 ####[facility] [address] [place], [address] CREAT,SERUM Normal 0.70-1.20 [facility] Comment on above: Result Comment: Canc elled via OM: Order cancelled - Patient discharged Performed By: #### L 500.4050 ####[facility] [address] [place], [address] Result Comment: Canc elled via OM: MD Ordered Performed By: #### L 500.2500, L100.0100 ####[facility] [address] [place], [address] eGFR Normal >60 [facility] Comment on above: Result Comment: Canc elled via OM: Order cancelled - Patient discharged Performed By: #### L 500.4050 ####[facility] [address] [place], [address] Result Comment: Canc elled via OM: MD Ordered Performed By: #### L 500.2500, L100.0100 ####[facility] [address] [place], [address] GAP Normal 5-15 [facility] Comment on above: Result Comment: Canc elled via OM: Order cancelled - Patient discharged Performed By: #### L 500.4050 ####[facility] [address] [place], [address] Result Comment: Canc elled via OM: MD Ordered Performed By: #### L 500.2500, L100.0100 ####[facility] [address] [place], [address] GLU Normal 70-99 [facility] Comment on above: Result Comment: Canc elled via OM: Order cancelled - Patient discharged Performed By: #### L 500.4050 ####[facility] [address] [place], [address] Result Comment: Canc elled via OM: MD Ordered Performed By: #### L 500.2500, L100.0100 ####[facility] [address] [place], [address] Potassium Normal 3.3-5.1 [facility] Comment on above: Result Comment: Canc elled via OM: Order cancelled - Patient discharged Performed By: #### L 500.4050 ####[facility] [address] [place], [address] Result Comment: Canc elled via OM: MD Ordered Performed By: #### L 500.2500, L100.0100 ####[facility] [address] [place], [address] T BILI Normal 0.00-1.30 [facility] Comment on above: Result Comment: Canc elled via OM: Order cancelled - Patient discharged Performed By: #### L 500.4050 ####[facility] [address] [place], [address] T PROT Normal 5.9-8.4 [facility] Comment on above: Result Comment: Canc elled via OM: Order cancelled - Patient discharged Performed By: #### L 500.4050 ####[facility] [address] [place], [address] Comprehensive Metabolic Profil Normal 133-145 [facility] Comment on above: Result Comment: Canc elled via OM: Order cancelled - Patient discharged Performed By: #### L 500.4050 ####[facility] [address] [place], [address] Result Comment: Canc elled via OM: MD Ordered Performed By: #### L 500.2500, L100.0100 ####[facility] [address] [place], [address] Fibrinogen PPP-mCncon 2024 Fibrinogen Coag (PPP) [Mass/Vol] 123 mg/dL Low 200-400 [facility] Comment on above: Order Comment: Speci men Type: BLOOD SPECIMENOrdering Facility: [facility] Address: [address] [place] [address] Performed By: #### 3 255-7, 77155-3 ####[facility] LABCLIA [id number] [address] [place] [address] [place] Hepatic function 2000 panelo n 11-15-2024 Albumin [Mass/Vol] 2.8 g/dL Low 3.9-4.9 [facility] Comment on above: Order Comment: Speci men Type: BLOOD SPECIMENOrdering Facility: [facility] Address: [address] [place] [address] Performed By: #### 2 4325-3, 41939-7 ####[facility] LABCLIA [id number] [address] [place] [address] [place] ALP [Catalytic activity/Vol] 277 U/L High 38-113 [facility] Comment on above: Order Comment: Speci men Type: BLOOD SPECIMENOrdering Facility: [facility] Address: [address] [place] [address] Performed By: #### 2 4325-3, 16876-3 ####[facility] LABCLIA [id number] [address] [place] [address] [place] ALT [Catalytic activity/Vol] 36 U/L Normal 10-54 [facility] Comment on above: Order Comment: Speci men Type: BLOOD SPECIMENOrdering Facility: [facility] Address: [address] [place] [address] Performed By: #### 2 4325-3, 71946-7 ####[facility] LABCLIA [id number] [address] [place] [address] [place] AST [Catalytic activity/Vol] 87 U/L High 14-40 [facility] Comment on above: Order Comment: Speci men Type: BLOOD SPECIMENOrdering Facility: [facility] Address: [address] [place] [address] Performed By: #### 2 4325-3, 97248-4 ####[facility] LABCLIA [id number] [address] [place] [address] [place] Bilirubin [Mass/Vol] 1.6 mg/dL High 0.2-1.3 [facility] Comment on above: Order Comment: Speci men Type: BLOOD SPECIMENOrdering Facility: [facility] Address: [address] [place] [address] Performed By: #### 2 4325-3, 88961-4 ####[facility] LABIA [id number] [place] [address] [place] Bilirubin.conjugated [Mass/Vol] 0.9 mg/dL High <0.3 [facility] Comment on above: Order Comment: Speci men Type: BLOOD SPECIMENOrdering Facility: [facility] Address: [address] [place] [address] Performed By: #### 2 4325-3, 33196-7 ####[facility] LABIA [id number] [place] [address] [place] Protein [Mass/Vol] 5.4 g/dL Low 6.3-8.0 [facility] Comment on above: Order Comment: Speci men Type: BLOOD SPECIMENOrdering Facility: [facility] Address: [address] [place] [address] Performed By: #### 2 4325-3, 87842-1 ####[facility] LABIA [id number] [place] [address] [place] PT panel Coag (PPP)on 2024 INR Coag (PPP) [Relative time] 1.8 {INR} High 0.9-1.3 [facility] Comment on above: Order Comment: Speci men Type: BLOOD SPECIMENOrdering Facility: [facility] Address: [address] [place] [address] Result Comment: Sarah min K Antagonist (VKA) Therapeutic Range: INR 2 to 3 (Target INR of 2.5)Note: For patients treated with VKA drugs, such as warfarin, the [place] [employer] 2012 Guideline recommends [...] al. Chest 2012, 141:7S-47SHector RA, et al. [facility] 2017, 70: 252-289 Performed By: #### 3 255-7, 00434-5 ####[facility] LABIA [id number] [place] [address] [place] PT Coag (PPP) [Time] 18.9 s High 9.7-13.0 [facility] Comment on above: Order Comment: Speci men Type: BLOOD SPECIMENOrdering Facility: [facility] Address: [address] [place] [address] Performed By: #### 3 255-7, 19011-9 ####[facility] LABIA [id number] [place] [address] [place] Renal function 2000 panelon 11-15-2024 Albumin [Mass/Vol] 2.9 g/dL Low 3.9-4.9 [facility] Comment on above: Order Comment: Ezekiel ramirez Type: BLOOD SPECIMENOrdering Facility: [facility] Address: [address] [place] [address] Performed By: #### 2 4325-3, 29149-5 ####[facility] LABIA [id number] [place] [address] [place] Anion gap [Moles/Vol] 15 mmol/L Normal 8-15 [facility] Comment on above: Order Comment: Ezekiel men Type: BLOOD SPECIMENOrdering Facility: [facility] Address: [address] [place] [address] Performed By: #### 2 4325-3, 17629-9 ####[facility] LABCLIA [id number] [facility] [address] [place] [address] [place] Calcium [Mass/Vol] 8.4 mg/dL Low 8.5-10.2 [facility] Comment on above: Order Comment: Speci men Type: BLOOD SPECIMENOrdering Facility: [facility] Address: [address] [place] [address] Performed By: #### 2 4325-3, 30033-4 ####[facility] LABCLIA [id number] [facility] [place] [id number] [place] Chloride [Moles/Vol] 99 mmol/L Normal 98-107 [facility] Comment on above: Order Comment: Speci men Type: BLOOD SPECIMENOrdering Facility: [facility] Address: [address] [place] [address] Performed By: #### 2 3, 30462-9 ####[facility] LABCLIA [id number] [facility] [place] [id number] [place] CO2 [Moles/Vol] 14 mmol/L Low 22-30 [facility] Comment on above: Order Comment: Speci men Type: BLOOD SPECIMENOrdering Facility: [facility] Address: [address] [place] [address] Performed By: #### 2 43253, 12705-4 ####[facility] LABCLIA [id number] [facility] [place] [id number] [place] Creatinine [Mass/Vol] 0.80 mg/dL Normal 0.73-1.22 [facility] Comment on above: Order Comment: Speci men Type: BLOOD SPECIMENOrdering Facility: [facility] Address: [address] [place] [address] Performed By: #### 2 4325-3, 25561-8 ####[facility] LABCLIA [id number] [facility] [place] [id number] [place] Creatinine and Glomerular filtration rate.predicted panel (S/P/Bld) 103 mL/min/1.73m??? Normal >=60 [facility] Comment on above: Order Comment: Ezekiel ramirez Type: BLOOD SPECIMENOrdering Facility: [facility] Address: [address] [place] [address] Result Comment: Patric mated Glomerular Filtration Rate [...] actual GFR. Performed By: #### 2 4325-3, 24829-0 ####[facility] LABCLIA [id number] [place] [address] [place] Glucose [Mass/Vol] 272 mg/dL High 74-99 [facility] Comment on above: Order Comment: Ezekiel ramirez Type: BLOOD SPECIMENOrdering Facility: [facility] Address: [address] [place] [address] Result Comment: The [place] [employer] (ADA) provides guidance for cutoff [...] Standards of Medical Care in Diabetes 2016, [place] [employer]. Diabetes Care. 2016.39(Suppl 1). Performed By: #### 2 4325-3, 49078-2 ####[facility] LABCLIA [id number] [place] [id number] [place] Phosphate [Mass/Vol] 2.2 mg/dL Low 2.7-4.8 [facility] Comment on above: Order Comment: Speci men Type: BLOOD SPECIMENOrdering Facility: [facility] Address: [address] [place] [address] Performed By: #### 2 4325-3, 62498-1 ####[facility] LABCLIA [id number] [address] [address] [place] Potassium [Moles/Vol] 3.8 mmol/L Normal 3.7-5.1 [facility] Comment on above: Order Comment: Speci men Type: BLOOD SPECIMENOrdering Facility: [facility] Address: [address] [place] [address] Performed By: #### 2 4325-3, 24740-1 ####[facility] LABCLIA [id number] [place] [id number] [place] Sodium [Moles/Vol] 128 mmol/L Low 136-144 [facility] Comment on above: Order Comment: Speci men Type: BLOOD SPECIMENOrdering Facility: [facility] Address: [address] [place] [address] Performed By: #### 2 4325-3, 32099-8 ####[facility] LABCLIA [id number] [place] [id number] [place] Urea nitrogen [Mass/Vol] 11 mg/dL Normal 9-24 [facility] Comment on above: Order Comment: Speci men Type: BLOOD SPECIMENOrdering Facility: [facility] Address: [address] [place] [address] Performed By: #### 2 4325-3, 10668-7 ####[facility] LABCLIA [id number] [place] [id number] [place] SEPSIS LACTATEon 11-15-2024 Lactate [Moles/Vol] 3.2 mmol/L High <=2.0 [facility] Comment on above: Order Comment: Speci men Type: BLOOD SPECIMENOrdering Facility: [facility] Address: [address] [place] [address] Performed By: #### S LACT ####[facility] LABCLIA [id number] [address] [address] [place] SOCIAL WORKon 11-15-2024 SOCIAL WORK Normal [facility] THERAPY NTon 11-15-2024 THERAPY NT Normal [facility] THERAPY NT Normal [facility] TYPE + SCREENon 11-15-2024 ABO O Normal [facility] Comment on above: Order Comment: Speci men Type: BLOOD SPECIMENOrdering Facility: [facility] Address: [address] [place] [address] Performed By: #### T SCR ####[facility] BLOOD BANKCLIA [id number] [place] [address] [place] Rh Nom (Bld) Positive Normal [facility] Comment on above: Order Comment: Speci men Type: BLOOD SPECIMENOrdering Facility: [facility] Address: [address] [place] [address] Performed By: #### T SCR ####[facility] BLOOD BANKIA [id number] [place] [address] [place] TYPE AND SCREEN EXPIRATION 11/18/2024 23:59 Normal [facility] Comment on above: Order Comment: Speci men Type: BLOOD SPECIMENOrdering Facility: [facility] Address: [address] [place] [address] Performed By: #### T SCR ####[facility] BLOOD BANKIA [id number] [address] [address] [place] US ASCITES SURVEYon 11-16-19 US ASCITES SURVEY Normal [facility] Basic Metabolic Profile (BMP )on 11-14-2024 BUN Normal 4-19 [facility] Comment on above: Result Comment: Canc elled via OM: MD Ordered Performed By: #### L 500.2500, L100.0100 ####[facility] [address] [place], [address] Result Comment: Canc elled via OM: Order cancelled - Patient discharged Performed By: #### L 500.4050 ####[facility] [address] [place], [address] BUN/CRE Normal 10-20 [facility] Comment on above: Result Comment: Canc elled via OM: MD Ordered Performed By: #### L 500.2500, L100.0100 ####[facility] [address] [place], [address] Result Comment: Canc elled via OM: Order cancelled - Patient discharged Performed By: #### L 500.4050 ####[facility] [address] [place], [address] Calcium Normal 7.6-11.0 [facility] Comment on above: Result Comment: Canc elled via OM: MD Ordered Performed By: #### L 500.2500, L100.0100 ####[facility] [address] [place], [address] Result Comment: Canc elled via OM: Order cancelled - Patient discharged Performed By: #### L 500.4050 ####[facility] [address] [place], [address] CL Normal 98-108 [facility] Comment on above: Result Comment: Canc elled via OM: MD Ordered Performed By: #### L 500.2500, L100.0100 ####[facility] [address] [place], [address] Result Comment: Canc elled via OM: Order cancelled - Patient discharged Performed By: #### L 500.4050 ####[facility] [address] [place], [address] CO2 Normal 21.0-32.0 [facility] Comment on above: Result Comment: Canc elled via OM: MD Ordered Performed By: #### L 500.2500, L100.0100 ####[facility] [address] [place], [address] Result Comment: Canc elled via OM: Order cancelled - Patient discharged Performed By: #### L 500.4050 ####[facility] [address] [place], [address] CREAT,SERUM Normal 0.70-1.20 [facility] Comment on above: Result Comment: Canc elled via OM: MD Ordered Performed By: #### L 500.2500, L100.0100 ####[facility] [address] [place], [address] Result Comment: Canc elled via OM: Order cancelled - Patient discharged Performed By: #### L 500.4050 ####[facility] [address] [place], [address] eGFR Normal >60 [facility] Comment on above: Result Comment: Canc elled via OM: MD Ordered Performed By: #### L 500.2500, L100.0100 ####[facility] [address] [place], [address] Result Comment: Canc elled via OM: Order cancelled - Patient discharged Performed By: #### L 500.4050 ####[facility] [address] [place], [address] GAP Normal 5-15 [facility] Comment on above: Result Comment: Canc elled via OM: MD Ordered Performed By: #### L 500.2500, L100.0100 ####[facility] [address] [place], [address] Result Comment: Canc elled via OM: Order cancelled - Patient discharged Performed By: #### L 500.4050 ####[facility] [address] [place], [address] GLU Normal 70-99 [facility] Comment on above: Result Comment: Canc elled via OM: MD Ordered Performed By: #### L 500.2500, L100.0100 ####[facility] [address] [place], [address] Result Comment: Canc elled via OM: Order cancelled - Patient discharged Performed By: #### L 500.4050 ####[facility] [address] [place], [address] Potassium Normal 3.3-5.1 [facility] Comment on above: Result Comment: Canc elled via OM: MD Ordered Performed By: #### L 500.2500, L100.0100 ####[facility] [address] [place], [address] Result Comment: Canc elled via OM: Order cancelled - Patient discharged Performed By: #### L 500.4050 ####[facility] [address] [place], [address] Basic Metabolic Profile (BMP) Normal 133-145 [facility] Comment on above: Result Comment: Canc elled via OM: MD Ordered Performed By: #### L 500.2500, L100.0100 ####[facility] [address] [place], [address] Result Comment: Canc elled via OM: Order cancelled - Patient discharged Performed By: #### L 500.4050 ####[facility] [address] [place], [address] Basic metabolic 2000 panelon 11-14-2024 Anion gap [Moles/Vol] 11 mmol/L Normal 8-15 [facility] Comment on above: Order Comment: Speci men Type: BLOOD SPECIMENOrdering Facility: [facility] Address: [facility] [place] [address] Performed By: #### 2 4321-2, 34731-1, 2776-1, ####[facility] LABCLIA [id number] [address] [address] [place] Calcium [Mass/Vol] 8.9 mg/dL Normal 8.5-10.2 [facility] Comment on above: Order Comment: Speci men Type: BLOOD SPECIMENOrdering Facility: [facility] Address: [address] [place], [place] [id number] Performed By: #### 2 4321-2, 43711-3, 2776-, ####[facility] LABCLIA [id number] [address] [address] [place] Chloride [Moles/Vol] 99 mmol/L Normal 98-107 [facility] Comment on above: Order Comment: Speci men Type: BLOOD SPECIMENOrdering Facility: [facility] Address: [address] [place], [place] [id number] Performed By: #### 2 4321-2, 32665-1, 2776-08, ####[facility] LABIA [id number] [address] [address] [place] CO2 [Moles/Vol] 17 mmol/L Low 22-30 [facility] Comment on above: Order Comment: Speci men Type: BLOOD SPECIMENOrdering Facility: [facility] Address: [address] [place] [address] Performed By: #### 2 4321-2, 11702-3, 2776-08, ####[facility] LABCLIA [id number] [address] [address] [place] Creatinine [Mass/Vol] 0.89 mg/dL Normal 0.73-1.22 [facility] Comment on above: Order Comment: Speci men Type: BLOOD SPECIMENOrdering Facility: [facility] Address: [address] [place] [address] Performed By: #### 2 4321-2, 93773-5, 2777-1, ####[facility] LABIA [id number] [place] [address] [place] Creatinine and Glomerular filtration rate.predicted panel (S/P/Bld) 99 mL/min/1.73m??? Normal >=60 [facility] Comment on above: Order Comment: Ezekiel ramirze Type: BLOOD SPECIMENOrdering Facility: [facility] Address: [address] [place] [address] Result Comment: Patric mated Glomerular Filtration Rate [...] actual GFR. Performed By: #### 2 4321-2, 28508-3, 2776-, ####[facility] LABIA [id number] [address] [address] [place] Glucose [Mass/Vol] 250 mg/dL High 74-99 [facility] Comment on above: Order Comment: Ezekiel ramirez Type: BLOOD SPECIMENOrdering Facility: [facility] Address: [address] [place] [address] Result Comment: The [place] [employer] (ADA) provides guidance for cutoff [...] Standards of Medical Care in Diabetes 2016, [place] [employer]. Diabetes Care. 2016.39(Suppl 1). Performed By: #### 2 4321-2, 58700-6, 277-1, ####[facility] LABIA [id number] [place] [id number] [place] Potassium [Moles/Vol] 3.6 mmol/L Low 3.7-5.1 [facility] Comment on above: Order Comment: Speci men Type: BLOOD SPECIMENOrdering Facility: [facility] Address: [address] [place] [address] Performed By: #### 2 4321-2, 01933-0, 277-, ####[facility] [id number] [place] [address] [place] Sodium [Moles/Vol] 127 mmol/L Low 136-144 [facility] Comment on above: Order Comment: Speci men Type: BLOOD SPECIMENOrdering Facility: [facility] Address: [address] [place] [address] Performed By: #### 2 4321-2, 75522-0, 2776-, ####[facility] [id number] [place] [address] [place] Urea nitrogen [Mass/Vol] 14 mg/dL Normal 9-24 [facility] Comment on above: Order Comment: Speci men Type: BLOOD SPECIMENOrdering Facility: [facility] Address: [address] [place] [address] Performed By: #### 2 4321-2, 17558-7, 27702-01, ####[facility] [id number] [place] [id number] [place] CBC W Auto Differential pane l (Bld)on 11-14-2024 Basophils (Bld) [#/Vol] 0.04 10*3/uL Normal <0.11 [facility] Comment on above: Order Comment: Speci men Type: BLOOD SPECIMENOrdering Facility: [facility] Address: [address] [place] [address] Performed By: #### 5 7021-8 ####[facility] LABCLIA [id number] [place] [address] [place] Basophils/100 WBC (Bld) 0.7 % Normal [facility] Comment on above: Order Comment: Speci men Type: BLOOD SPECIMENOrdering Facility: [facility] Address: [address] [place] [address] Performed By: #### 5 7021-8 ####[facility] LABCLIA [id number] [place] [address] [place] Differential cell count method Nom (Bld) Auto Normal [facility] Comment on above: Order Comment: Speci men Type: BLOOD SPECIMENOrdering Facility: [facility] Address: [address] [place] [address] Performed By: #### 5 7021-8 ####[facility] LABCLIA [id number] [address] [place] Eosinophils (Bld) [#/Vol] 0.23 10*3/uL Normal <0.46 [facility] Comment on above: Order Comment: Speci men Type: BLOOD SPECIMENOrdering Facility: [facility] Address: [address] [place] [address] Performed By: #### 5 7021-8 ####[facility] LABCLIA [id number] [address] [place] Eosinophils/100 WBC (Bld) 4.1 % Normal [facility] Comment on above: Order Comment: Speci men Type: BLOOD SPECIMENOrdering Facility: [facility] Address: [address] [place] [address] Performed By: #### 5 7021-8 ####[facility] LABCLIA [id number] [place] [address] [place] Erythrocyte distribution width (RBC) [Ratio] 16.3 % High 11.5-15.0 [facility] Comment on above: Order Comment: Speci men Type: BLOOD SPECIMENOrdering Facility: [facility] Address: [address] [place] [address] Performed By: #### 5 7021-8 ####[facility] LABCLIA [id number] [place] [address] [place] Hematocrit (Bld) [Volume fraction] 22.7 % Low 39.0-51.0 [facility] Comment on above: Order Comment: Speci men Type: BLOOD SPECIMENOrdering Facility: [facility] Address: [address] [place] [address] Performed By: #### 5 7021-8 ####[facility] LABCLIA [id number] [place] [address] [place] Hemoglobin (Bld) [Mass/Vol] 7.9 g/dL Low 13.0-17.0 [facility] Comment on above: Order Comment: Speci men Type: BLOOD SPECIMENOrdering Facility: [facility] Address: [address] [place] [address] Performed By: #### 5 7021-8 ####[facility] LABIA [id number] [place] [address] [place] Immature granulocytes (Bld) [#/Vol] 0.04 10*3/uL Normal <0.10 [facility] Comment on above: Order Comment: Speci men Type: BLOOD SPECIMENOrdering Facility: [facility] Address: [address] [place] [address] Performed By: #### 5 7021-8 ####[facility] LABCLIA [id number] [place] [address] [place] Immature granulocytes/100 WBC (Bld) 0.7 % Normal [facility] Comment on above: Order Comment: Speci men Type: BLOOD SPECIMENOrdering Facility: [facility] Address: [address] [place], [place] [id number] Performed By: #### 5 7021-8 ####[facility] LABCLIA [id number] [place] [address] [place] Lymphocytes (Bld) [#/Vol] 0.72 10*3/uL Low 1.00-4.00 [facility] Comment on above: Order Comment: Speci men Type: BLOOD SPECIMENOrdering Facility: [facility] Address: [address] [place] [address] Performed By: #### 5 7021-8 ####[facility] LABCLIA [id number] [place] [address] [place] Lymphocytes/100 WBC (Bld) 12.8 % Normal [facility] Comment on above: Order Comment: Speci men Type: BLOOD SPECIMENOrdering Facility: [facility] Address: [address] [place] [address] Performed By: #### 5 7021-8 ####[facility] LABCLIA [id number] [place] [address] [place] MCH (RBC) [Entitic mass] 31.7 pg Normal 26.0-34.0 [facility] Comment on above: Order Comment: Speci men Type: BLOOD SPECIMENOrdering Facility: [facility] Address: [address] [place] [address] Performed By: #### 5 7021-8 ####[facility] LABCLIA [id number] [place] [address] [place] MCHC (RBC) [Mass/Vol] 34.8 g/dL Normal 30.5-36.0 [facility] Comment on above: Order Comment: Speci men Type: BLOOD SPECIMENOrdering Facility: [facility] Address: [address] [place] [address] Performed By: #### 5 7021-8 ####[facility] LABCLIA [id number] [id number] [address] [place] MCV (RBC) [Entitic vol] 91.2 fL Normal 80.0-100.0 [facility] Comment on above: Order Comment: Speci men Type: BLOOD SPECIMENOrdering Facility: [facility] Address: [address] [place] [address] Performed By: #### 5 7021-8 ####[facility] LABCLIA [id number] [facility] [address], [place] [address] [place] Monocytes (Bld) [#/Vol] 0.68 10*3/uL Normal <0.87 [facility] Comment on above: Order Comment: Speci men Type: BLOOD SPECIMENOrdering Facility: [facility] Address: [address] [place] [address] Performed By: #### 5 7021-8 ####[facility] LABCLIA [id number] [place] [address] [place] Monocytes/100 WBC (Bld) 12.1 % Normal [facility] Comment on above: Order Comment: Speci men Type: BLOOD SPECIMENOrdering Facility: [facility] Address: [address] [place] [address] Performed By: #### 5 7021-8 ####[facility] LABCLIA [id number] [address], [facility]95 [place] Neutrophils (Bld) [#/Vol] 3.92 10*3/uL Normal 1.45-7.50 [facility] Comment on above: Order Comment: Speci men Type: BLOOD SPECIMENOrdering Facility: [facility] Address: [address] [place] [address] Performed By: #### 5 7021-8 ####[facility] LABCLIA [id number] [facility] [place] [id number] [place] Neutrophils/100 WBC (Bld) 69.6 % Normal [facility] Comment on above: Order Comment: Speci men Type: BLOOD SPECIMENOrdering Facility: [facility] Address: [address] [place] [address] Performed By: #### 5 7021-8 ####[facility] LABIA [id number] [place] [address] [place] Nucleated RBC (Bld) [#/Vol] 10*3/uL Normal <0.01 [facility] Comment on above: Order Comment: Speci men Type: BLOOD SPECIMENOrdering Facility: [facility] Address: [address] [place] [address] Performed By: #### 5 7021-8 ####[facility] [id number] [place] [address] [place] Nucleated RBC/100 WBC (Bld) [Ratio] 0.0 /100 WBC Normal [facility] Comment on above: Order Comment: Speci men Type: BLOOD SPECIMENOrdering Facility: [facility] Address: [address] [place] [address] Performed By: #### 5 7021-8 ####[facility] [id number] [place] [address] [place] Platelet mean volume (Bld) [Entitic vol] 12.1 fL Normal 9.0-12.7 [facility] Comment on above: Order Comment: Speci men Type: BLOOD SPECIMENOrdering Facility: [facility] Address: [address] [place] [address] Performed By: #### 5 7021-8 ####[facility] LABIA [id number] [place] [address] [place] Platelets (Bld) [#/Vol] 43 10*3/uL Low 150-400 [facility] Comment on above: Order Comment: Speci men Type: BLOOD SPECIMENOrdering Facility: [facility] Address: [address] [place] [address] Result Comment: Resu lts checked and verified.No clot detected. Performed By: #### 5 7021-8 ####[facility] LABCLIA [id number] [place] [address] [place] RBC (Bld) [#/Vol] 2.49 10*6/uL Low 4.20-6.00 [facility] Comment on above: Order Comment: Speci men Type: BLOOD SPECIMENOrdering Facility: [facility] Address: [address] [place] [address] Performed By: #### 5 7021-8 ####[facility] LABCLIA [id number] [place] [address] [place] WBC (Bld) [#/Vol] 5.63 10*3/uL Normal 3.70-11.00 [facility] Comment on above: Order Comment: Speci men Type: BLOOD SPECIMENOrdering Facility: [facility] Address: [address] [place] [address] Performed By: #### 5 7021-8 ####[facility] LABCLIA [id number] [place] [address] [place] CBC W/Diff, Automatedon 04-1 Absolute Neut Normal 2.0-7.7 [facility] Comment on above: Result Comment: Canc elled via OM: Order cancelled - Patient discharged Performed By: #### L 500.2500, L100.0100 ####[facility] [address] [facility] [address] HCT Normal 40-54 [facility] Comment on above: Result Comment: Canc elled via OM: Order cancelled - Patient discharged Performed By: #### L 500.2500, L100.0100 ####[facility] [address] [place], [address] HGB Normal 13.0-16.5 [facility] Comment on above: Result Comment: Canc elled via OM: Order cancelled - Patient discharged Performed By: #### L 500.2500, L100.0100 ####[facility] [address] [place], [address] MCH Normal 27.0-32.0 [facility] Comment on above: Result Comment: Canc elled via OM: Order cancelled - Patient discharged Performed By: #### L 500.2500, L100.0100 ####[facility] [address] [place], [address] MCHC Normal 32-36 [facility] Comment on above: Result Comment: Canc elled via OM: Order cancelled - Patient discharged Performed By: #### L 500.2500, L100.0100 ####[facility] [address] [place], [address] MCV Normal 80-94 [facility] Comment on above: Result Comment: Canc elled via OM: Order cancelled - Patient discharged Performed By: #### L 500.2500, L100.0100 ####[facility] [address] [place], [address] NEUT% Normal 47-70 [facility] Comment on above: Result Comment: Canc elled via OM: Order cancelled - Patient discharged Performed By: #### L 500.2500, L100.0100 ####[facility] [address] [place], [address] PLT Normal 150-450 [facility] Comment on above: Result Comment: Canc elled via OM: Order cancelled - Patient discharged Performed By: #### L 500.2500, L100.0100 ####[facility] [address] [place], [address] RBC Normal 4.6-6.2 [facility] Comment on above: Result Comment: Canc elled via OM: Order cancelled - Patient discharged Performed By: #### L 500.2500, L100.0100 ####[facility] [address] [place], [address] RDW CV Normal 11.6-14.6 [facility] Comment on above: Result Comment: Canc elled via OM: Order cancelled - Patient discharged Performed By: #### L 500.2500, L100.0100 ####[facility] [address] [place], [address] RDW SD Normal 35.1-43.9 [facility] Comment on above: Result Comment: Canc elled via OM: Order cancelled - Patient discharged Performed By: #### L 500.2500, L100.0100 ####[facility] [address] [place], [address] WBC Normal 4.4-11.0 [facility] Comment on above: Result Comment: Canc elled via OM: Order cancelled - Patient discharged Performed By: #### L 500.2500, L100.0100 ####[facility] [address] [place], [address] Comprehensive Metabolic Prof ilon 11-14-2024 ALB Normal 3.5-5.0 [facility] Comment on above: Result Comment: Canc elled via OM: Order cancelled - Patient discharged Performed By: #### L 500.4050 ####[facility] [address] [place], [address] ALK PHOS Normal 40-129 [facility] Comment on above: Result Comment: Canc elled via OM: Order cancelled - Patient discharged Performed By: #### L 500.4050 ####[facility] [address] [place], [address] ALT Normal <=46 [facility] Comment on above: Result Comment: Canc elled via OM: Order cancelled - Patient discharged Performed By: #### L 500.4050 ####[facility] [address] [place], [address] AST Normal <=37 [facility] Comment on above: Result Comment: Canc elled via OM: Order cancelled - Patient discharged Performed By: #### L 500.4050 ####[facility] [address] [place], [address] T BILI Normal 0.00-1.30 [facility] Comment on above: Result Comment: Canc elled via OM: Order cancelled - Patient discharged Performed By: #### L 500.4050 ####[facility] [address] [place], [address] T PROT Normal 5.9-8.4 [facility] Comment on above: Result Comment: Canc elled via OM: Order cancelled - Patient discharged Performed By: #### L 500.4050 ####[facility] [address] [place], [address] Fibrinogen PPP-mCncon 2024 Fibrinogen Coag (PPP) [Mass/Vol] 119 mg/dL Low 200-400 [facility] Comment on above: Order Comment: Speci men Type: BLOOD SPECIMENOrdering Facility: [facility] Address: [address] [place] [address] Performed By: #### 3 255-7, 55312-4 ####[facility] LABCLIA [id number] [place] [address] [place] Hepatic function 2000 panelo n 11-14-2024 Albumin [Mass/Vol] 2.8 g/dL Low 3.9-4.9 [facility] Comment on above: Order Comment: Speci men Type: BLOOD SPECIMENOrdering Facility: [facility] Address: [address] [place] [address] Performed By: #### 2 4321-2, 83149-7, 2777-1, 54603-3 ####[facility] LABCLIA [id number] [place] [address] [place] ALP [Catalytic activity/Vol] 248 U/L High 38-113 [facility] Comment on above: Order Comment: Speci men Type: BLOOD SPECIMENOrdering Facility: [facility] Address: [address] [place], [place] [address] Performed By: #### 2 4321-2, 88524-0, 2776-08, ####[facility] LABCLIA [id number] [address] [address] [place] ALT [Catalytic activity/Vol] 29 U/L Normal 10-54 [facility] Comment on above: Order Comment: Speci men Type: BLOOD SPECIMENOrdering Facility: [facility] Address: [address] [place], [place] [address] Performed By: #### 2 4321-2, 52415-7, 2776-08, ####[facility] LABCLIA [id number] [place] [address] [place] AST [Catalytic activity/Vol] 62 U/L High 14-40 [facility] Comment on above: Order Comment: Speci men Type: BLOOD SPECIMENOrdering Facility: [facility] Address: [address] [place], [place] [id number] Performed By: #### 2 4321-2, 33367-6, 2776-08, ####[facility] LABCLIA [id number] [address] [address] [place] Bilirubin [Mass/Vol] 1.7 mg/dL High 0.2-1.3 [facility] Comment on above: Order Comment: Speci men Type: BLOOD SPECIMENOrdering Facility: [facility] Address: [address] [place], [place] [id number] Performed By: #### 2 4321-2, 17437-9, 2776-08, ####[facility] LABCLIA [id number] [address] [address] [place] Bilirubin.conjugated [Mass/Vol] 1.0 mg/dL High <0.3 [facility] Comment on above: Order Comment: Speci men Type: BLOOD SPECIMENOrdering Facility: [facility] Address: [address] [place] [address] Performed By: #### 2 4321-2, 67343-1, 27702-01, ####[facility] LABIA [id number] [address] [address] [place] Protein [Mass/Vol] 5.4 g/dL Low 6.3-8.0 [facility] Comment on above: Order Comment: Speci men Type: BLOOD SPECIMENOrdering Facility: [facility] Address: [address] [place] [address] Performed By: #### 2 4321-2, 26772-4, 27702-01, ####[facility] [id number] [place] [id number] [place] Magnesium SerPl-mCncon 11-14 Magnesium [Mass/Vol] 1.6 mg/dL Low 1.7-2.3 [facility] Comment on above: Order Comment: Speci men Type: BLOOD SPECIMENOrdering Facility: [facility] Address: [address] [place] [address] Performed By: #### 2 4321-2, 69059-5, 27702-01, ####[facility] [id number] [place] [id number] [place] PT panel Coag (PPP)on 2024 INR Coag (PPP) [Relative time] 1.8 {INR} High 0.9-1.3 [facility] Comment on above: Order Comment: Speci men Type: BLOOD SPECIMENOrdering Facility: [facility] Address: [address] [place] [address] Result Comment: Sarah min K Antagonist (VKA) Therapeutic Range: INR 2 to 3 (Target INR of 2.5)Note: For patients treated with VKA drugs, such as warfarin, the [place] [employer] 2012 Guideline recommends [...] al. Chest 2012, 141:7S-47SNishimnicolle RA, et al. [facility] 2017, 70: 252-289 Performed By: #### 3 255-7, 38995-6 ####[facility] [id number] [place] [address] [place] PT Coag (PPP) [Time] 19.2 s High 9.7-13.0 [facility] Comment on above: Order Comment: Speci men Type: BLOOD SPECIMENOrdering Facility: [facility] Address: [address] [place] [address] Performed By: #### 3 255-7, 60443-1 ####[facility] [id number] [place] [address] [place] Phosphate SerPl-mCncon 11-14 Phosphate [Mass/Vol] 1.9 mg/dL Low 2.7-4.8 [facility] Comment on above: Order Comment: Speci men Type: BLOOD SPECIMENOrdering Facility: [facility] Address: [address] [place] [address] Performed By: #### 2 4321-2, 41621-9, 2777-1, 31914-7 ####[facility] [id number] [place] [address] [place] URINALYSIS, REFLEX MICROSCOP ICon 11-14-2024 Bacteria LM.HPF (Urine sed) [#/Area] Negative Normal Negative [facility] Comment on above: Order Comment: Speci men Type: URINE SPECIMENOrdering Facility: [facility] Address: [address] [place] [address] Performed By: #### L [id number] ####[facility] LABCLIA [id number] [place] [address] [place] Bilirubin Ql (U) 1+ Abnormal Negative [facility] Comment on above: Order Comment: Speci men Type: URINE SPECIMENOrdering Facility: [facility] Address: [address] [place] [address] Result Comment: Sugg est correlation with clinical findings and serum bilirubin if clinically indicated. Performed By: #### L [id number] ####[facility] LABCLIA [id number] [place] [address] [place] Clarity (Unsp spec) Cloudy Abnormal Clear [facility] Comment on above: Order Comment: Speci men Type: URINE SPECIMENOrdering Facility: [facility] [facility] Address: [address] [place] [address] Performed By: #### L [id number] ####[facility] LABCLIA [id number] [place] [address] [place] Color (U) [place] Abnormal Yellow [facility] Comment on above: Order Comment: Speci men Type: URINE SPECIMENOrdering Facility: [facility] Address: [address] [place] [address] Performed By: #### L [id number] ####[facility] LABCLIA [id number] [place] [address] [place] Epithelial cells LM.HPF (Urine sed) [#/Area] None Seen Normal [facility] Comment on above: Order Comment: Speci men Type: URINE SPECIMENOrdering Facility: [facility] Address: [address] [place] [address] Performed By: #### L [id number] ####[facility] LABCLIA [id number] [address] [address] [place] Glucose Test strip (U) [Mass/Vol] Negative Normal Negative [facility] Comment on above: Order Comment: Speci men Type: URINE SPECIMENOrdering Facility: [facility] Address: [address] [place] [address] Performed By: #### L [id number] ####[facility] LABCLIA [id number] [place] [id number] [place] Hemoglobin Ql (U) 3+ Abnormal Negative [facility] Comment on above: Order Comment: Speci men Type: URINE SPECIMENOrdering Facility: [facility] Address: [address] [place] [address] Performed By: #### L [id number] ####[facility] LABCLIA [id number] [place] [address] [place] Hyaline casts (Urine sed) [#/Area] 0 /[LPF] Normal 0 /LPF [facility] Comment on above: Order Comment: Speci men Type: URINE SPECIMENOrdering Facility: [facility] Address: [address] [place] [address] Performed By: #### L [id number] ####[facility] LABCLIA [id number] [place] [id number] [place] Ketones Ql (U) Negative Normal Negative [facility] Comment on above: Order Comment: Speci men Type: URINE SPECIMENOrdering Facility: [facility] Address: [address] [place] [address] Performed By: #### L [id number] ####[facility] LABCLIA [id number] [place] [address] [place] Leukocyte esterase Test strip Ql (U) 3+ Abnormal Negative [facility] Comment on above: Order Comment: Speci men Type: URINE SPECIMENOrdering Facility: [facility] Address: [address] [place] [address] Performed By: #### L [id number] ####[facility] LABCLIA [id number] [place] [address] [place] Nitrite Ql (U) Negative Normal Negative [facility] Comment on above: Order Comment: Speci men Type: URINE SPECIMENOrdering Facility: [facility] Address: [address] [place] [address] Performed By: #### L [id number] ####[facility] LABCLIA [id number] [place] [address] [place] pH (U) 6.0 [pH] Normal <8.5 [facility] Comment on above: Order Comment: Speci men Type: URINE SPECIMENOrdering Facility: [facility] Address: [address] [place] [address] Performed By: #### L [id number] ####[facility] LABIA [id number] [place] [address] [place] Protein (U) [Mass/Vol] 2+ Abnormal Negative [facility] Comment on above: Order Comment: Speci men Type: URINE SPECIMENOrdering Facility: [facility] Address: [address] [place] [address] Performed By: #### L [id number] ####[facility] LABIA [id number] [place] [address] [place] RBC LM.HPF (Urine sed) [#/Area] /[HPF] Abnormal 0-2 /HPF [facility] Comment on above: Order Comment: Speci men Type: URINE SPECIMENOrdering Facility: [facility] Address: [address] [place] [address] Performed By: #### L [id number] ####[facility] LABIA [id number] [place] [address] [place] Specific gravity (U) [Rel density] 1.017 Normal 1.005-1.030 [facility] Comment on above: Order Comment: Speci men Type: URINE SPECIMENOrdering Facility: [facility] Address: [address] [place] [address] Performed By: #### L [id number] ####[facility] LABIA [id number] [place] [address] [place] Urobilinogen Ql (U) 0.2 EU/dL Normal 0.2-1.0 EU/dL [facility] Comment on above: Order Comment: Speci men Type: URINE SPECIMENOrdering Facility: [facility] Address: [address] [place] [address] Performed By: #### L [id number] ####[facility] [id number] [place] [address] [place] WBC LM.HPF (Urine sed) [#/Area] /[HPF] Abnormal 0-5 /HPF [facility] Comment on above: Order Comment: Speci men Type: URINE SPECIMENOrdering Facility: [facility] Address: [address] [place] [address] Performed By: #### L [id number] ####[facility] [id number] [place] [address] [place] Yeast.budding LM.HPF (Urine sed) [#/Area] Present Abnormal None Seen [facility] Comment on above: Order Comment: Speci men Type: URINE SPECIMENOrdering Facility: [facility] Address: [address] [place] [address] Performed By: #### L [id number] ####[facility] [id number] [place] [address] [place] 25(OH)D3 [facility] 2024 25-hydroxyvitamin D3 [Mass/Vol] 16.2 ng/mL Low 31.0-80.0 [facility] Comment on above: Order Comment: Speci men Type: BLOOD SPECIMENOrdering Facility: [facility] Address: [address] [place] [address] Performed By: #### 7 852-7, MEASLG, VZVG2, 1988- ####[facility] LABCLIA [id number] [place] [address] [place] A-Tocopherol Vit E SerPl-mCn con 11-13-2024 Alpha tocopherol [Mass/Vol] 3.3 mg/L Low 6.0-23.0 [facility] Comment on above: Order Comment: Speci men Type: BLOOD SPECIMENOrdering Facility: [facility] Address: [address] [place] [address] Performed By: #### 2 923-1, 1823-4 ####[facility] [id number] [address] [place] ALPHA-1 ANTITRYPSIN GENOon 0 11-13-2024 HA1AT REVIEWED BY Michelle [facility] Comment on above: Order Comment: Speci men Type: BLOOD SPECIMENOrdering Facility: [facility] Address: [address] [place] [address] Result Comment: Alph a-1 Antitrypsin GenotypingLaboratory Accession Number: [id number]:No Variant Detected in SERPINA1 (PI*MM)Interpretation:DNA testing indicates [...] the two mostcommon pathogenic variants: S (c.863A>T, p.Ezx741Msd, g.05298089), Z(c.1096G>A, p.Bga472Bcq, g.33356865), and the rarer variants: F(c.739C>T, p.Yjx036Yfo, g.31683086), I (c.187C>T, p.Wds69Qhx,g.62028095).Limitations:This Laboratory Developed Test (LDT) is designed to [...] was developed and its performance characteristics determinedby [facility]'s [facility] Department. Ithas not been cleared or approved by the FDA. [facility] is regulated under CLIAas certified to perform high-complexity testing. This test is used forclinical purposes. It should not be regarded as investigational or forresearch.Test performed at [facility], [address] [place] [address], [place]. CLIA Number: [id number]:1) Kait RA, Samir G, Essence ML, Ilan [...] Salvador SJ, Nicole. Molecular characterisation of three tgpgt-1-fqmbbxdhhaz deficiencyvariants: proteinase inhibitor (Pi) nullcardiff (Mev329----Jxe);PiMmalton (Cqy81----vfjiwhan) and PiI (Jeu75----Nzk). Hum Trisha. 1988Dec;84(1):55-8.4) Flor EK and Kait HIRSCH. Clinical practice.Alpha1-antitrypsin deficiency. N Engl J Med. 2008;360(80)2731-51.5) Margot [place], Kwame F, Prakash HIRSCH. The significance of the F variantof skwwz-9-avqlxrxcfdp and unique case report of a PiFF homozygote.[facility] Pulm Med. 2013Mar 10;14:132.6) Ivania MARIE, Elena [place], and Jaziel Carlson. Alpha-1 AntitrypsinDeficiency. 2005May 30 [Updated 2017 August 22]. In: Juanito RA, Barbara, Nemesio TO, et al., editors. GeneReviews [Internet]. [place]):[facility], [place]; 8060-2210. Available from:http://www.ncbi.nlm.nih.gov/books/ALP7576/Interpretation performed at remote location (R0A1) by Fifi España MD Performed By: #### H A1AT ####[facility] [id number] [place] [address] [place] ANES POSTPROC EVALon 025 ANES POSTPROC EVAL Normal [facility] ANES PRE-OPon 11-13-2024 ANES PRE-OP Normal [facility] Alpha tocopherol [Mass/Vol]o n 11-13-2024 Beta+gamma tocopherol [Mass/Vol] 0.6 mg/L Normal 0.3-3.2 [facility] Comment on above: Order Comment: Speci men Type: BLOOD SPECIMENOrdering Facility: [facility] Address: [address] [place] [address] Result Comment: This test was developed, and its performance characteristics determined by the [facility] Department of Pathology and Laboratory Medicine. It has not been cleared or approved by the FDA. The [facility] Department of Pathology and Laboratory Medicine is regulated under CLIA as qualified to perform high-complexity testing. This test is used for clinical purposes. It should not be regarded as investigational or for research. Performed By: #### 2 923-1, 1823-4 ####[facility] LABIA [id number] [place] [id number] [place] Basic metabolic 2000 panelon 11-13-2024 Anion gap [Moles/Vol] 9 mmol/L Normal 8-15 [facility] Comment on above: Order Comment: Speci men Type: BLOOD SPECIMENOrdering Facility: [facility] Address: [address] [place] [address] Performed By: #### 2 4321-2, 45379-5, 90929-6, 41708-4 ####[facility] LABIA [id number] [place] [id number] [place] Calcium [Mass/Vol] 9.1 mg/dL Normal 8.5-10.2 [facility] Comment on above: Order Comment: Speci men Type: BLOOD SPECIMENOrdering Facility: [facility] Address: [address] [place] [address] Performed By: #### 2 4321-2, 02414-2, 74563-0, 45896-1 ####[facility] LABCLIA [id number] [place] [id number] [place] Chloride [Moles/Vol] 99 mmol/L Normal 98-107 [facility] Comment on above: Order Comment: Speci men Type: BLOOD SPECIMENOrdering Facility: [facility] Address: [address] [place] [address] Performed By: #### 2 4321-2, 49565-7, 95412-7, 44244-4 ####[facility] LABIA [id number] [place] [address] [place] CO2 [Moles/Vol] 16 mmol/L Low 22-30 [facility] Comment on above: Order Comment: Speci men Type: BLOOD SPECIMENOrdering Facility: [facility] Address: [address] [place] [address] Performed By: #### 2 4321-2, 59970-2, 10986-8, 81829-3 ####[facility] LABIA [id number] [place] [address] [place] Creatinine [Mass/Vol] 1.10 mg/dL Normal 0.73-1.22 [facility] Comment on above: Order Comment: Speci men Type: BLOOD SPECIMENOrdering Facility: [facility] Address: [address] [place] [address] Performed By: #### 2 4321-2, 64751-7, 22493-4, 54517-7 ####[facility] LABIA [id number] [place] [address] [place] Creatinine and Glomerular filtration rate.predicted panel (S/P/Bld) 78 mL/min/1.73m??? Normal >=60 [facility] Comment on above: Order Comment: Speci men Type: BLOOD SPECIMENOrdering Facility: [facility] Address: [address] [place] [address] Result Comment: Patric mated Glomerular Filtration Rate [...] actual GFR. Performed By: #### 2 4321-2, 27433-5, 61341-1, 89120-6 ####[facility] LABCLIA [id number] [facility] [address] [address] [place] Glucose [Mass/Vol] 278 mg/dL High 74-99 [facility] Comment on above: Order Comment: Ezekiel ramirez Type: BLOOD SPECIMENOrdering Facility: [facility] Address: [address] [place] [address] Result Comment: The [place] [employer] (ADA) provides guidance for cutoff [...] Standards of Medical Care in Diabetes 2016, [place] [employer]. Diabetes Care. 2016.39(Suppl 1). Performed By: #### 2 4321-2, 55503-6, 42897-2, 51175-7 ####[facility] LABCLIA [id number] [facility]ENUELOMA LIN[facility] CENTERK [address] [address] [place] Potassium [Moles/Vol] 4.1 mmol/L Normal 3.7-5.1 [facility] Comment on above: Order Comment: Ezekiel ramirez Type: BLOOD SPECIMENOrdering Facility: [facility] Address: [address] [place] [id number] Performed By: #### 2 4321-2, 84329-9, 69200-5, 86266-6 ####[facility] LABCLIA [id number] [facility] [place] [address] [place] Sodium [Moles/Vol] 124 mmol/L Low 136-144 [facility] Comment on above: Order Comment: Speci men Type: BLOOD SPECIMENOrdering Facility: [facility] Address: [address] [place] [address] Performed By: #### 2 4321-2, 61810-1, 73721-1, 35106-3 ####[facility] LABCLIA [id number] [place] [address] [place] Urea nitrogen [Mass/Vol] 20 mg/dL Normal 9-24 [facility] Comment on above: Order Comment: Speci men Type: BLOOD SPECIMENOrdering Facility: [facility] Address: [address] [place] [address] Performed By: #### 2 4321-2, 78289-4, 61536-1, 72162-3 ####[facility] LABCLIA [id number] [place] [address] [place] CBC W Auto Differential pane l (Bld)on 11-13-2024 Basophils (Bld) [#/Vol] 10*3/uL Normal <0.11 [facility] Comment on above: Order Comment: Speci men Type: BLOOD SPECIMENOrdering Facility: [facility] Address: [address] [place] [address] Performed By: #### 5 7021-8 ####[facility] LABCLIA [id number] [place] [address] [place] Basophils/100 WBC (Bld) 0.4 % Normal C [facility] Comment on above: Order Comment: Speci men Type: BLOOD SPECIMENOrdering Facility: [facility] Address: [address] [place] [address] Performed By: #### 5 7021-8 ####[facility] LABCLIA [id number] [place] [address] [place] Differential cell count method Nom (Bld) Auto Normal [facility] Comment on above: Order Comment: Speci men Type: BLOOD SPECIMENOrdering Facility: [facility] Address: [address] [place] [address] Performed By: #### 5 7021-8 ####[facility] LABCLIA [id number] [place] [address] [place] Eosinophils (Bld) [#/Vol] 0.18 10*3/uL Normal <0.46 [facility] Comment on above: Order Comment: Speci men Type: BLOOD SPECIMENOrdering Facility: [facility] Address: [address] [place] [address] Performed By: #### 5 7021-8 ####[facility] LABIA [id number] [place] [address] [place] Eosinophils/100 WBC (Bld) 3.3 % Normal [facility] Comment on above: Order Comment: Speci men Type: BLOOD SPECIMENOrdering Facility: [facility] Address: [address] [place] [address] Performed By: #### 5 7021-8 ####[facility] LABIA [id number] [place] [address] [place] Erythrocyte distribution width (RBC) [Ratio] 17.0 % High 11.5-15.0 [facility] Comment on above: Order Comment: Speci men Type: BLOOD SPECIMENOrdering Facility: [facility] Address: [address] [place] [address] Performed By: #### 5 7021-8 ####[facility] LABIA [id number] [address] [place] Hematocrit (Bld) [Volume fraction] 21.6 % Low 39.0-51.0 [facility] Comment on above: Order Comment: Speci men Type: BLOOD SPECIMENOrdering Facility: [facility] Address: [address] [place] [address] Performed By: #### 5 7021-8 ####[facility] LABCLIA [id number] [place] [address] [place] Hemoglobin (Bld) [Mass/Vol] 7.4 g/dL Low 13.0-17.0 [facility] Comment on above: Order Comment: Speci men Type: BLOOD SPECIMENOrdering Facility: [facility] Address: [address] [place] [address] Performed By: #### 5 7021-8 ####[facility] LABCLIA [id number] [place] [address] [place] Immature granulocytes (Bld) [#/Vol] 0.04 10*3/uL Normal <0.10 [facility] Comment on above: Order Comment: Speci men Type: BLOOD SPECIMENOrdering Facility: [facility] Address: [address] [place] [address] Performed By: #### 5 7021-8 ####[facility] LABIA [id number] [place] [address] [place] Immature granulocytes/100 WBC (Bld) 0.7 % Normal [facility] Comment on above: Order Comment: Speci men Type: BLOOD SPECIMENOrdering Facility: [facility] Address: [address] [place] [address] Performed By: #### 5 7021-8 ####[facility] LABIA [id number] [place] [address] [place] Lymphocytes (Bld) [#/Vol] 0.64 10*3/uL Low 1.00-4.00 [facility] Comment on above: Order Comment: Speci men Type: BLOOD SPECIMENOrdering Facility: [facility] Address: [address] [place] [address] Performed By: #### 5 7021-8 ####[facility] LABIA [id number] [place] [address] [place] Lymphocytes/100 WBC (Bld) 11.6 % Normal [facility] Comment on above: Order Comment: Speci men Type: BLOOD SPECIMENOrdering Facility: [facility] Address: [address] [place] [address] Performed By: #### 5 7021-8 ####[facility] LABIA [id number] [place] [address] [place] MCH (RBC) [Entitic mass] 31.8 pg Normal 26.0-34.0 [facility] Comment on above: Order Comment: Speci men Type: BLOOD SPECIMENOrdering Facility: [facility] Address: [address] [place] [address] Performed By: #### 5 7021-8 ####[facility] LABIA [id number] [place] [address] [place] MCHC (RBC) [Mass/Vol] 34.3 g/dL Normal 30.5-36.0 [facility] Comment on above: Order Comment: Speci men Type: BLOOD SPECIMENOrdering Facility: [facility] Address: [address] [place] [address] Performed By: #### 5 7021-8 ####[facility] LABIA [id number] [place] [address] [place] MCV (RBC) [Entitic vol] 92.7 fL Normal 80.0-100.0 [facility] Comment on above: Order Comment: Speci men Type: BLOOD SPECIMENOrdering Facility: [facility] Address: [address] [place] [address] Performed By: #### 5 7021-8 ####[facility] LABIA [id number] [place] [address] [place] Monocytes (Bld) [#/Vol] 0.68 10*3/uL Normal <0.87 [facility] Comment on above: Order Comment: Speci men Type: BLOOD SPECIMENOrdering Facility: [facility] Address: [address] [place] [address] Performed By: #### 5 7021-8 ####[facility] LABCLIA [id number] [place] [id number] [place] Monocytes/100 WBC (Bld) 12.4 % Normal [facility] Comment on above: Order Comment: Speci men Type: BLOOD SPECIMENOrdering Facility: [facility] Address: [address] [place] [address] Performed By: #### 5 7021-8 ####[facility] LABCLIA [id number] [place] [address] [place] Neutrophils (Bld) [#/Vol] 3.94 10*3/uL Normal 1.45-7.50 [facility] Comment on above: Order Comment: Speci men Type: BLOOD SPECIMENOrdering Facility: [facility] Address: [address] [place] [address] Performed By: #### 5 7021-8 ####[facility] LABCLIA [id number] [place] [address] [place] Neutrophils/100 WBC (Bld) 71.6 % Normal [facility] Comment on above: Order Comment: Speci men Type: BLOOD SPECIMENOrdering Facility: [facility] Address: [address] [place] [address] Performed By: #### 5 7021-8 ####[facility] LABCLIA [id number] [place] [id number] [place] Nucleated RBC (Bld) [#/Vol] 10*3/uL Normal <0.01 [facility] Comment on above: Order Comment: Speci men Type: BLOOD SPECIMENOrdering Facility: [facility] Address: [address] [place] [address] Performed By: #### 5 7021-8 ####[facility] LABCLIA [id number] [place] [id number] [place] Nucleated RBC/100 WBC (Bld) [Ratio] 0.0 /100 WBC Normal [facility] Comment on above: Order Comment: Speci men Type: BLOOD SPECIMENOrdering Facility: [facility] Address: [address] [place] [address] Performed By: #### 5 7021-8 ####[facility] LABCLIA [id number] [place] [address] [place] Platelet mean volume (Bld) [Entitic vol] 11.7 fL Normal 9.0-12.7 [facility] Comment on above: Order Comment: Speci men Type: BLOOD SPECIMENOrdering Facility: [facility] Address: [address] [place] [address] Performed By: #### 5 7021-8 ####[facility] LABIA [id number] [place] [address] [place] Platelets (Bld) [#/Vol] 38 10*3/uL Low 150-400 [facility] Comment on above: Order Comment: Speci men Type: BLOOD SPECIMENOrdering Facility: [facility] Address: [address] [place] [address] Result Comment: Resu lts checked and verified.No clot detected. Performed By: #### 5 7021-8 ####[facility] LABIA [id number] [place] [address] [place] RBC (Bld) [#/Vol] 2.33 10*6/uL Low 4.20-6.00 [facility] Comment on above: Order Comment: Speci men Type: BLOOD SPECIMENOrdering Facility: [facility] Address: [address] [place] [address] Performed By: #### 5 7021-8 ####[facility] LABCLIA [id number] [place] [address] [place] WBC (Bld) [#/Vol] 5.50 10*3/uL Normal 3.70-11.00 [facility] Comment on above: Order Comment: Speci men Type: BLOOD SPECIMENOrdering Facility: [facility] Address: [address] [place] [address] Performed By: #### 5 7021-8 ####[facility] LABCLIA [id number] DILLON HERNANDEZ [id number] [place] [address] [place] CBC W/Diff, Automatedon 11-02 Absolute Neut Normal 2.0-7.7 [facility] Comment on above: Result Comment: Canc elled via OM: Order cancelled - Patient discharged Performed By: #### L 500.2500, L100.0100 ####[facility] [id number] [place], [address] HCT Normal 40-54 [facility] Comment on above: Result Comment: Canc elled via OM: Order cancelled - Patient discharged Performed By: #### L 500.2500, L100.0100 ####[facility] [address] [place], [address] HGB Normal 13.0-16.5 [facility] Comment on above: Result Comment: Canc elled via OM: Order cancelled - Patient discharged Performed By: #### L 500.2500, L100.0100 ####[facility] [address] [place], [address] MCH Normal 27.0-32.0 [facility] Comment on above: Result Comment: Canc elled via OM: Order cancelled - Patient discharged Performed By: #### L 500.2500, L100.0100 ####[facility] [address] [place], [address] MCHC Normal 32-36 [facility] Comment on above: Result Comment: Canc elled via OM: Order cancelled - Patient discharged Performed By: #### L 500.2500, L100.0100 ####[facility] [address] [place], [address] MCV Normal 80-94 [facility] Comment on above: Result Comment: Canc elled via OM: Order cancelled - Patient discharged Performed By: #### L 500.2500, L100.0100 ####[facility] [address] [place], [address] NEUT% Normal 47-70 [facility] Comment on above: Result Comment: Canc elled via OM: Order cancelled - Patient discharged Performed By: #### L 500.2500, L100.0100 ####[facility] [address] [place], [address] PLT Normal 150-450 [facility] Comment on above: Result Comment: Canc elled via OM: Order cancelled - Patient discharged Performed By: #### L 500.2500, L100.0100 ####[facility] [address] [place], [address] RBC Normal 4.6-6.2 [facility] Comment on above: Result Comment: Canc elled via OM: Order cancelled - Patient discharged Performed By: #### L 500.2500, L100.0100 ####[facility] [address] [place], [address] RDW CV Normal 11.6-14.6 [facility] Comment on above: Result Comment: Canc elled via OM: Order cancelled - Patient discharged Performed By: #### L 500.2500, L100.0100 ####[facility] [address] [place], [address] RDW SD Normal 35.1-43.9 [facility] Comment on above: Result Comment: Canc elled via OM: Order cancelled - Patient discharged Performed By: #### L 500.2500, L100.0100 ####[facility] [address] [place], [address] WBC Normal 4.4-11.0 [facility] Comment on above: Result Comment: Canc elled via OM: Order cancelled - Patient discharged Performed By: #### L 500.2500, L100.0100 ####[facility] [address] [place], [address] CMV IgG Qnon 11-13-2024 CMV IGG QUAL Negative Normal Negative [facility] Comment on above: Order Comment: Speci men Type: BLOOD SPECIMENOrdering Facility: [facility] Address: [address] [place] [address] Result Comment: No s erological evidence of past exposure to Cytomegalovirus. Cannot exclude recent infection if the specimen collected within 4-6 weeks after infection. Performed By: #### 7 852-7, MEASLG, VZVG2, 1988-10 ####[facility] LABCLIA [id number] [place] [address] [place] CMV IgG SerPl-aCncon 025 CMV IgG Qn 0.37 U/mL Normal [facility] Comment on above: Order Comment: Speci men Type: BLOOD SPECIMENOrdering Facility: [facility] Address: [address] [place] [address] Result Comment: The magnitude of the measured result is not indicative of the amount of antibody present.U/mL values are interpreted as follows:Negative <0.6Equivocal 0.6 to <0.70Positive >=0.70 Performed By: #### 7 852-7, MEASLG, VZVG2, 1988-10 ####[facility] LABCLIA [id number] [place] [address] [place] CONSULT PROGon 11-13-2024 CONSULT PROG Normal [facility] CYTOLOGY NON-GYNon AP DISCLAIMER Normal [facility] Comment on above: Order Comment: Speci men Type: FLUID SPECIMENOrdering Facility: [facility] Address: [address] [place] [address] Result Comment: Shellie pugh Developed Test (LDT) Disclaimer:Performance characteristics of immunohistochemical, immunofluorescent, and chromogenic in-situ hybridization tests have been determined by the performing laboratory within [facility] Pathology and Laboratory Medicine Department ([facility], [facility], [facility], [facility], [facility], [facility], or [facility]) in a manner consistent with CLIA requirements. One or more of these tests may not have been cleared or approved by the FDA. RT[facility]PLM is regulated under CLIA as qualified to perform high-complexity testing. These tests are used for clinical purposes. These should not be regarded as investigational or for research. Positive and negative controls stain appropriately. Performed By: #### C YTONON ####[facility] LABCLIA [id number] [place] [address] [place] CASE REPORT Normal [facility] Comment on above: Order Comment: Speci men Type: FLUID SPECIMENOrdering Facility: [facility] Address: [address] [place] [address] Result Comment: [facility] Cytology Report Case: [id number] Provider: Deb Fox MD Collected: 11/13/2024 02:46 PMOrdering Location: [place] [address] Received: 11/15/2024 05:01 AMPathologist: Foster Newton MDSpecimen: Urine, Midstream Performed By: #### C YTONON ####[facility] LABIA [id number] [place] [address] [place] CLINICAL HISTORY Staghorn calculi, s/ p L sided stenting with hematuria Normal [facility] Comment on above: Order Comment: Speci men Type: FLUID SPECIMENOrdering Facility: [facility] Address: [address] [place] [address] Performed By: #### C YTONON ####[facility] LABCLIA [id number] [place] [id number] [place] DIAGNOSIS COMMENT Normal [facility] Comment on above: Order Comment: Speci men Type: FLUID SPECIMENOrdering Facility: [facility] Address: [address] [place] [address] Result Comment: A. F ungal yeast forms are seen, morphologically consistent with Mary species. Clinical correlation is suggested. Performed By: #### C YTONON ####[facility] LABCLIA [id number] [address] [place] FINAL DIAGNOSIS Normal [facility] Comment on above: Order Comment: Speci men Type: FLUID SPECIMENOrdering Facility: [facility] Address: [address] [place] [address] Result Comment: A - Urine, Voided: Negative for high-grade urothelial carcinoma. Abundant acute inflammation (see comment). at 1141 EDT Performed By: #### C YTONON ####[facility] LABCLIA [id number] [address] STATES OF [facility] FINAL PERFORMING LAB Normal [facility] Comment on above: Order Comment: Speci men Type: FLUID SPECIMENOrdering Facility: [facility] Address: [address] [place] [address] Result Comment: Tech nical component, director of rehabilitative services screening performed at: [facility], [address] [place] [address] CLIA: [id number] interpretation performed at: [facility], [address] [place] [address] CLIA# [id number] Director: Titi Voss MD Performed By: #### C YTONON ####[facility] LABCLIA [id number] [address] [place] GROSS DESCRIPTION Normal [facility] Comment on above: Order Comment: Speci men Type: FLUID SPECIMENOrdering Facility: [facility] Address: [address] [place] [address] Result Comment: A. U rine, Govkowvpv76 cc cloudy willow fluid . ThinPrep prepared. Performed By: #### C YTRAMÓNN ####[facility] LABCLIA [id number] [address] [id number] [address] [facility] Comprehensive Metabolic Prof ilon 11-13-2024 ALB Normal 3.5-5.0 [facility] Comment on above: Result Comment: Canc elled via OM: Order cancelled - Patient discharged Performed By: #### L 500.4050 ####[facility] [address] [place], [address] ALK PHOS Normal 40-129 [facility] Comment on above: Result Comment: Canc elled via OM: Order cancelled - Patient discharged Performed By: #### L 500.4050 ####[facility] [address] [place], [address] ALT Normal <=46 [facility] Comment on above: Result Comment: Canc elled via OM: Order cancelled - Patient discharged Performed By: #### L 500.4050 ####[facility] [address] [place], [address] AST Normal <=37 [facility] Comment on above: Result Comment: Canc elled via OM: Order cancelled - Patient discharged Performed By: #### L 500.4050 ####[facility] [address] [place], [address] BUN Normal 4-19 [facility] Comment on above: Result Comment: Canc elled via OM: Order cancelled - Patient discharged Performed By: #### L 500.4050 ####[facility] [address] [place], [address] Result Comment: Canc elled via OM: MD Ordered Performed By: #### L 500.2500, L100.0100 ####[facility] [address] [place], [address] BUN/CRE Normal 10-20 [facility] Comment on above: Result Comment: Canc elled via OM: Order cancelled - Patient discharged Performed By: #### L 500.4050 ####[facility] [address] [place], [address] Result Comment: Canc elled via OM: MD Ordered Performed By: #### L 500.2500, L100.0100 ####[facility] [address] [place], [address] Calcium Normal 7.6-11.0 [facility] Comment on above: Result Comment: Canc elled via OM: Order cancelled - Patient discharged Performed By: #### L 500.4050 ####[facility] [address] [place], [address] Result Comment: Canc elled via OM: MD Ordered Performed By: #### L 500.2500, L100.0100 ####[facility] [address] [place], [address] CL Normal 98-108 [facility] Comment on above: Result Comment: Canc elled via OM: Order cancelled - Patient discharged Performed By: #### L 500.4050 ####[facility] [address] [place], [address] Result Comment: Canc elled via OM: MD Ordered Performed By: #### L 500.2500, L100.0100 ####[facility] [address] [place], [address] CO2 Normal 21.0-32.0 [facility] Comment on above: Result Comment: Canc elled via OM: Order cancelled - Patient discharged Performed By: #### L 500.4050 ####[facility] [address] [place], [address] Result Comment: Canc elled via OM: MD Ordered Performed By: #### L 500.2500, L100.0100 ####[facility] [address] [place], [address] CREAT,SERUM Normal 0.70-1.20 [facility] Comment on above: Result Comment: Canc elled via OM: Order cancelled - Patient discharged Performed By: #### L 500.4050 ####[facility] [address] [place], [address] Result Comment: Canc elled via OM: MD Ordered Performed By: #### L 500.2500, L100.0100 ####[facility] [address] [place], [address] eGFR Normal >60 [facility] Comment on above: Result Comment: Canc elled via OM: Order cancelled - Patient discharged Performed By: #### L 500.4050 ####[facility] [address] [place], [address] Result Comment: Canc elled via OM: MD Ordered Performed By: #### L 500.2500, L100.0100 ####[facility] [address] [place], [address] GAP Normal 5-15 [facility] Comment on above: Result Comment: Canc elled via OM: Order cancelled - Patient discharged Performed By: #### L 500.4050 ####[facility] [address] [place], [address] Result Comment: Canc elled via OM: MD Ordered Performed By: #### L 500.2500, L100.0100 ####[facility] [address] [place], [address] GLU Normal 70-99 [facility] Comment on above: Result Comment: Canc elled via OM: Order cancelled - Patient discharged Performed By: #### L 500.4050 ####[facility] [address] [place], [address] Result Comment: Canc elled via OM: MD Ordered Performed By: #### L 500.2500, L100.0100 ####[facility] [address] [place], [address] Potassium Normal 3.3-5.1 [facility] Comment on above: Result Comment: Canc elled via OM: Order cancelled - Patient discharged Performed By: #### L 500.4050 ####[facility] [address] [place], [address] Result Comment: Canc elled via OM: MD Ordered Performed By: #### L 500.2500, L100.0100 ####[facility] [address] [place], [address] T BILI Normal 0.00-1.30 [facility] Comment on above: Result Comment: Canc elled via OM: Order cancelled - Patient discharged Performed By: #### L 500.4050 ####[facility] [address] [place], [address] T PROT Normal 5.9-8.4 [facility] Comment on above: Result Comment: Canc elled via OM: Order cancelled - Patient discharged Performed By: #### L 500.4050 ####[facility] [address] [place], [address] Comprehensive Metabolic Profil Normal 133-145 [facility] Comment on above: Result Comment: Canc elled via OM: Order cancelled - Patient discharged Performed By: #### L 500.4050 ####[facility] [address] [place], [address] Result Comment: Canc elled via OM: MD Ordered Performed By: #### L 500.2500, L100.0100 ####[facility] [address] [place], [address] EBV capsid IgG Qn (S)on 11-02 EBV VCA IGG, QUAL Positive Abnormal Negative [facility] Comment on above: Order Comment: Speci men Type: BLOOD SPECIMENOrdering Facility: [facility] Address: [address] [place] [address] Result Comment: The result suggests recent or past EBV infection. The final interpretation should be done in the context of other EBV serology panel results. Performed By: #### 8 039-0, 7885-7 ####[facility] LABCLIA [id number] [place] [address] [place] Fibrinogen PPP-mCncon 2024 Fibrinogen Coag (PPP) [Mass/Vol] 94 mg/dL Low 200-400 [facility] Comment on above: Order Comment: [facility] Type: BLOOD SPECIMENOrdering Facility: [facility] Address: [address] [place] [address] Result Comment: Samp le checked for clot. Performed By: #### 3 4528-0, 3255-7 ####[facility] LABIA [id number] [place] [address] [place] HBV core Ab Ser Qlon 025 HBV core Ab Ql (S) Negative Normal Negative [facility] Comment on above: Order Comment: [facility] Type: BLOOD SPECIMENOrdering Facility: [facility] Address: [address] [place] [address] Result Comment: No e vidence of current or past infection with Hepatitis B virus. Should recent infection be suspected, repeat testing may be considered 3-4 weeks after this draw. Performed By: #### 3 1201-7, 18001-6, AHAVG, 5195-3, 29784-5 ####[facility] LABIA [id number] [place] [address] [place] HBV surface Ab Ql (S)on 11-02 HBV surface Ab Qn (S) <8.00 Normal [facility] Comment on above: Order Comment: [facility] Type: BLOOD SPECIMENOrdering Facility: [facility] Address: [address] [place] [address] Result Comment: <8 m IU/mL: No serological evidence of immunity to Hepatitis B Virus.>/= 8 to <12 mIU/mL: No serological evidence of immunity to Hepatitis B Virus.>/= 12 mIU/mL: Consistent with serological evidence of immunity to Hepatitis B Virus. Performed By: #### 3 1201-7, 35536-9, [facility], 5195-3, 03122-8 ####[facility] LABCLIA [id number] [place] [address] [place] HBV surface Ab Ser Qlon 11-02 HBV surface Ab Ql (S) Negative Normal [facility] Comment on above: Order Comment: Speci men Type: BLOOD SPECIMENOrdering Facility: [facility] Address: [address] [place] [address] Result Comment: No s erological evidence of immunity to Hepatitis B Virus. Performed By: #### 3 1201-7, 35277-6, [facility], 5195-3, 54369-9 ####[facility] LABIA [id number] [place] [address] [place] HBV surface Ag Ser Qlon 11-02 HBV surface Ag Ql (S) Negative Normal Negative [facility] Comment on above: Order Comment: Speci men Type: BLOOD SPECIMENOrdering Facility: [facility] Address: [address] [place] [address] Performed By: #### 3 1201-7, 59075-6, [facility], 5-3, 09461-7 ####[facility] [id number] [place] [address] [place] HCV Ab Ser Qlon 11-13-2024 HCV Ab Ql (S) Negative Normal Negative [facility] Comment on above: Order Comment: Speci men Type: BLOOD SPECIMENOrdering Facility: [facility] Address: [address] [place] [address] Result Comment: The result suggests no evidence of infection with Hepatitis C virus. Should recent infection be suspected, repeat testing may be considered 4-6 weeks after this draw. Performed By: #### 1 6128-1 ####[facility] LABIA [id number] [place] [address] [place] HEPATITIS A ANTIBODY, IGGon 11-13-2024 HAV IgG Ql (S) Negative Normal [facility] Comment on above: Order Comment: Speci men Type: BLOOD SPECIMENOrdering Facility: [facility] Address: [address] [place] [address] Result Comment: No s erological evidence of past exposure to hepatitis A virus or hepatitis A vaccination. Should recent infection be suspected, repeat testing is suggested 3-4 weeks after this draw. Performed By: #### 3 1201-7, 14506-2, AHAVG, 5195-3, 57583-1 ####[facility] LABIA [id number] [place] [address] [place] Performed By: #### 7 3752-8, AHAVG, STRSER, MUMPSG ####[facility] LABIA [id number] [place] [address] [place] HIV 1+2 Ab IA Qlon HIV 1 and 2 Ab IA.rapid Nom (S/P/Bld) Normal [facility] Comment on above: Order Comment: Speci men Type: BLOOD SPECIMENOrdering Facility: [facility] Address: [address] [place] [address] Result Comment: Test not indicated. Performed By: #### 3 1201-7, 87238-1, AHAVG, 5195-3, 82399-5 ####[facility] LABIA [id number] [place] [address] [place] HIV 1+2 Ab+HIV1 p24 Ag IA Ql Non-Reactive Normal Nonreactive [facility] Comment on above: Order Comment: Speci men Type: BLOOD SPECIMENOrdering Facility: [facility] Address: [address] [place] [address] Performed By: #### 3 1201-7, 21135-8, [facility], 5195-3, 03976-4 ####[facility] LABIA [id number] [place] [address] [place] HIV immunoassay testing algorithm interpretation (S/P/Bld) [Interp] Normal [facility] Comment on above: Order Comment: Speci men Type: BLOOD SPECIMENOrdering Facility: [facility] Address: [address] [place] [address] Result Comment: No e vidence of HIV-1 or HIV-2 infection. Should recent infection be suspected, repeat testing may be considered 2-3 weeks after this draw.Titus Rev. Code 3701.243(E): This information has been [...] or diagnoses. Performed By: #### 3 1201-7, 36071-7, [facility], 5195-3, 66296-4 ####[facility] LABIA [id number] [place] [address] [place] Hepatic function 2000 panelo n 11-13-2024 Albumin [Mass/Vol] 2.8 g/dL Low 3.9-4.9 [facility] Comment on above: Order Comment: Speci men Type: BLOOD SPECIMENOrdering Facility: [facility] Address: [address] [place] [address] Performed By: #### 2 4321-2, 92020-6, 83565-6, 42370-2 ####[facility] LABIA [id number] [place] [address] [place] ALP [Catalytic activity/Vol] 225 U/L High 38-113 [facility] Comment on above: Order Comment: Speci men Type: BLOOD SPECIMENOrdering Facility: [facility] Address: [address] [place] [id number] Performed By: #### 2 4321-2, 70153-9, 64742-4, 90245-6 ####[facility] LABCLIA [id number] [address] [address] [place] ALT [Catalytic activity/Vol] 22 U/L Normal 10-54 [facility] Comment on above: Order Comment: Speci men Type: BLOOD SPECIMENOrdering Facility: [facility] Address: [address] [place], [place] [address] Performed By: #### 2 4321-2, 86506-1, 86790-6, 97318-9 ####[facility] LABCLIA [id number] [place] [address] [place] AST [Catalytic activity/Vol] 36 U/L Normal 14-40 [facility] Comment on above: Order Comment: Speci men Type: BLOOD SPECIMENOrdering Facility: [facility] Address: [address] [place], [place] [address] Performed By: #### 2 4321-2, 12261-5, 66733-1, 71281-7 ####[facility] LABCLIA [id number] [address] [address] [place] Bilirubin [Mass/Vol] 1.8 mg/dL High 0.2-1.3 [facility] Comment on above: Order Comment: Speci men Type: BLOOD SPECIMENOrdering Facility: [facility] Address: [address] [place], [place] [address] Performed By: #### 2 4321-2, 83654-8, 44737-7, 88022-5 ####[facility] LABCLIA [id number] [address] [address] [place] Bilirubin.conjugated [Mass/Vol] 0.9 mg/dL High <0.3 [facility] Comment on above: Order Comment: Speci men Type: BLOOD SPECIMENOrdering Facility: [facility] Address: [address] [place] [address] Performed By: #### 2 4321-2, 41044-9, 33675-0, 63030-9 ####[facility] LABCLIA [id number] [place] [address] [place] Protein [Mass/Vol] 5.2 g/dL Low 6.3-8.0 [facility] Comment on above: Order Comment: Speci men Type: BLOOD SPECIMENOrdering Facility: [facility] Address: [address] [place] [address] Performed By: #### 2 4321-2, 49665-2, 91894-7, 21879-2 ####[facility] LABCLIA [id number] [place] [address] [place] LIVER REC INIT W/Uon 025 ALLOGEN RESULTS TO FOLLOW See Allogen report to follow Normal [facility] Comment on above: Order Comment: Speci men Type: BLOOD SPECIMENOrdering Facility: [facility] [facility] Address: [address] [place] [address] Performed By: #### L RIPW ####[facility]IES[facility]IA [id number] [place] [id number] [place] LPa SerPl-mCncon 11-13-2024 Lipoprotein a [Mass/Vol] mg/dL Normal <30 [facility] Comment on above: Order Comment: Speci men Type: BLOOD SPECIMENOrdering Facility: [facility] Address: [address] [place] [address] Performed By: #### 1 0835-7 ####[facility] LABCLIA [id number] [place] [address] [place] Lipid 1996 panelon 5 Cholesterol [Mass/Vol] 52 mg/dL Normal <200 [facility] Comment on above: Order Comment: Speci men Type: BLOOD SPECIMENOrdering Facility: [facility] Address: [address] [place] [address] Result Comment: <200 mg/dL, Desirable 200-239 mg/dL, Borderline high>239 mg/dL, High Performed By: #### 2 4321-2, 77216-5, 88818-8, 64672-6 ####[facility] LABCLIA [id number] [facility] [address], [place] [address] [place] Cholesterol in HDL [Mass/Vol] 17 mg/dL Low >39 [facility] Comment on above: Order Comment: Speci men Type: BLOOD SPECIMENOrdering Facility: [facility] Address: [address] [place] [address] Result Comment: 40-5 9 mg/dL, Acceptable>59 mg/dL, High: Negative risk factor for coronary heart disease<40 mg/dL, Low: Positive risk factor for coronary heart disease Performed By: #### 2 4321-2, 83612-2, 23439-0, 33576-8 ####[facility] LABCLIA [id number] [facility] [address], [place] [address] [place] Cholesterol in LDL [Mass/Vol] 26 mg/dL Normal <100 [facility] Comment on above: Order Comment: Speci men Type: BLOOD SPECIMENOrdering Facility: [facility] Address: [address] [place] [address] Result Comment: <100 mg/dL, Optimal 100-129 mg/dL, Near optimal/above optimal 130-159 mg/dL, Borderline high 160-189 mg/dL, High>189 mg/dL, Very highSecondary prevention optimal LDL Cholesterol levels are recommended to be < 70 mg/dL Performed By: #### 2 4321-2, 11466-4, 39074-8, 58103-7 ####[facility] LABCLIA [id number] [facility] [address] [place], [place] [address] [place] Cholesterol in LDL/Cholesterol in HDL [Mass ratio] 1.53 {ratio} Normal <2.54 [facility] Comment on above: Order Comment: Speci men Type: BLOOD SPECIMENOrdering Facility: [facility] Address: [address] [place] [address] Result Comment: Demetrio haines:1. National Cholesterol Education Program ATP III Guideline At-A-Glance Quick Desk Reference: National Heart, Lung, and Blood [place]. National Institutes of Health. 2001: NIH Publication No. 01-3305.2. An International Atherosclerosis Society position paper: global recommendations for the management of dyslipidemia: executive summary, Atherosclerosis. 2014: 232(2):410-413. Performed By: #### 2 4321-2, 51808-2, 12100-9, 70079-8 ####[facility] LABCLIA [id number] [place] [address] [place] Cholesterol in VLDL [Mass/Vol] 9 mg/dL Normal <30 [facility] Comment on above: Order Comment: Speci men Type: BLOOD SPECIMENOrdering Facility: [facility] Address: [address] [place] [address] Performed By: #### 2 4321-2, 56621-5, 25219-9, 15015-2 ####[facility] LABCLIA [id number] [address] [address] [place] Cholesterol non HDL [Mass/Vol] 35 mg/dL Normal <130 [facility] Comment on above: Order Comment: Speci men Type: BLOOD SPECIMENOrdering Facility: [facility] Address: [address] [place] [address] Result Comment: <130 mg/dL, Optimal 130-159 mg/dL, Near optimal/above optimal 160-189 mg/dL, Borderline high 190-219 mg/dL, High>219 mg/dL, Very highSecondary prevention optimal non HDL Cholesterol levels are recommended to be <100 mg/dL Performed By: #### 2 4321-2, 11000-3, 93277-1, 92934-0 ####[facility] LABCLIA [id number] [address] [place] [address] [place] Cholesterol.total/Donna sterol in HDL [Mass ratio] 3.06 {ratio} Normal <5.10 [facility] Comment on above: Order Comment: Speci men Type: BLOOD SPECIMENOrdering Facility: [facility] Address: [address] [place] [address] Performed By: #### 2 4321-2, 03860-0, 36157-0, 79664-9 ####[facility] LABCLIA [id number] [address] [place] FASTING TIME 4 hrs Normal [facility] Comment on above: Order Comment: Speci men Type: BLOOD SPECIMENOrdering Facility: [facility] Address: [address] [place] [address] Performed By: #### 2 4321-2, 32790-5, 50592-0, 13737-1 ####[facility] LABCLIA [id number] [place] [address] [place] Triglyceride [Mass/Vol] 45 mg/dL Normal <150 [facility] Comment on above: Order Comment: Speci men Type: BLOOD SPECIMENOrdering Facility: [facility] Address: [address] [place] [address] Result Comment: <150 mg/dL, Normal 150-199 mg/dL, Borderline high 200-499 mg/dL, High>499 mg/dL, Very high Performed By: #### 2 4321-2, 23099-4, 81627-8, 81004-4 ####[facility] LABCLIA [id number] [place] [address] [place] MUMPS IGG ABon 11-13-2024 MuV IgG Ql (S) Negative Abnormal Positive [facility] Comment on above: Order Comment: Speci men Type: BLOOD SPECIMENOrdering Facility: [facility] Address: [address] [place] [address] Result Comment: The result suggests no history of Mumps vaccination or exposure to Mumps virus, however, some individuals with past history of Mumps vaccination may test negative using this test. Please correlate with past history of vaccination if applicable. Performed By: #### 7 3752-8, AHAVG, STRSER, MUMPSG ####[facility] LABCLIA [id number] [address] [place] NT-proBNP SerPl-mCncon 11-13 Natriuretic peptide.B prohormone N-Terminal [Mass/Vol] 1047 pg/mL High <125 [facility] Comment on above: Order Comment: Speci men Type: BLOOD SPECIMENOrdering Facility: [facility] Address: [address] [place] [address] Performed By: #### 2 4321-2, 42756-4, 15724-5, 87050-4 ####[facility] LABCLIA [id number] [place] [address] [place] NURSING PROGon 11-13-2024 NURSING PROG Normal [facility] NURSING PROG Normal [facility] PHOSPHATIDYLETHANOL (PETH)on 11-13-2024 EER PETH See Note Normal [facility] Comment on above: Order Comment: Speci men Type: BLOOD SPECIMENOrdering Facility: [facility] Address: [address] [place] [address] Result Comment: Auth orized individuals can access the [employer] Enhanced Reportwith an [employer] Connect account using the following link.Your local lab can assist you in obtaining the patientreport if you don't have a Connect account.[email or web address] Performed By: #### P ETH ####[facility]IESCLIA [id number] [place] [address] PETH 16:0/18.2 (PLPETH) <10 Normal [facility] Comment on above: Order Comment: Speci men Type: BLOOD SPECIMENOrdering Facility: [facility] Address: [address] [place] [address] Result Comment: Refe rence ranges are not well established. Performed By: #### P ETH ####[facility]ORATORIESCLIA [id number] [place] [address] PETH 16:0/18:1 (POPETH) <10 Normal [facility] Comment on above: Order Comment: Speci men Type: BLOOD SPECIMENOrdering Facility: [facility] Address: [address] [place] [address] Result Comment: PEth 16:0/18:1 (POPEth)Less than 10 ng/mL............Not detectedLess than 20 ng/mL............Abstinence or light huobqteqvhtigruvtc61 - 200 ng/mL................Moderate alcohol consumptionGreater than 200 ng/mL........Heavy alcohol consumption or chronicalcohol use(Reference: Alonso Landaverde and Mathew Ha 2018 J. Forensic Sci) Performed By: #### P ETH ####[facility] [id number] [place] [address] PETH INTERPRETATION See Comment [facility] Comment on above: Order Comment: Speci men Type: BLOOD SPECIMENOrdering Facility: [facility] Address: [address] [place] [address] Result Comment: Phos phatidylethanol (PEth) is a [...] was developed and its performance characteristicsdetermined by [facility]. It has not been cleared orapproved by the U.S. Food and Drug Administration. This test wasperformed in a CLIA-certified laboratory and is intended forclinical purposes.Performed By: [facility] [place], [place] [address]Ockuiavbvp Director: Lizandro Ordonez MD, PhDCLIA Number: [id number] Performed By: #### P ETH ####[facility] LABORATORIESIA [id number] [place] [address] PT panel Coag (PPP)on 2024 INR Coag (PPP) [Relative time] 1.9 {INR} High 0.9-1.3 [facility] Comment on above: Order Comment: Speci men Type: BLOOD SPECIMENOrdering Facility: [facility] Address: [address] [place] [address] Result Comment: Sarah min K Antagonist (VKA) Therapeutic Range: INR 2 to 3 (Target INR of 2.5)Note: For patients treated with VKA drugs, such as warfarin, the [employer] 2012 Guideline recommends [...] [phone] Performed By: #### 3 4528-0, 3255-7 ####[facility] LABCLIA [id number] [address] [place] PT Coag (PPP) [Time] 19.9 s High 9.7-13.0 [facility] Comment on above: Order Comment: Speci men Type: BLOOD SPECIMENOrdering Facility: [facility] Address: [address] [place] [address] Performed By: #### 3 4528-0, 3255-7 ####[facility] LABCLIA [id number] [place] [address] [facility] [place] Pathology biopsy report Marco Antonio (Tiss)on 11-13-2024 AP DISCLAIMER Normal [facility] Comment on above: Order Comment: Speci men Type: TISSUE SPECIMENOrdering Facility: [facility] Address: [address] [place] [address] Result Comment: Shellie pugh Developed Test (LDT) Disclaimer:Performance characteristics of immunohistochemical, immunofluorescent, and chromogenic in-situ hybridization tests have been determined by the performing laboratory within [facility] ([facility], [facility], [facility], [facility], [facility], [facility], or [facility]) in a manner consistent with CLIA requirements. [...] Performed By: #### 6 6121-5 ####[facility]ORATORYCLIA [id number] [address] STATES OF [facility] LABCLIA [id number] [place] [address] [place] CASE REPORT Normal [facility] Comment on above: Order Comment: Speci men Type: TISSUE SPECIMENOrdering Facility: [facility] Address: [address] [place] [address] Result Comment: Surg ical Pathology Report Case: [id number] Provider: Thai Pineda MD Collected: 11/13/2024 09:40 AMOrdering Location: [place] [address] Received: 11/15/2024 03:18 PMPathologist: Axel Berger MDSpecimen: Esophagus, Biopsy, r/o esophageal candidiasis Performed By: #### 6 6121-5 ####[facility]ORATORYCLIA [id number] [address] LABCLIA [id number] [address] [place] FINAL DIAGNOSIS Normal [facility] Comment on above: Order Comment: Speci men Type: TISSUE SPECIMENOrdering Facility: [facility] Address: [address] [place] [address] Result Comment: Esop hagus, biopsy:- Squamous mucosal candidiasis.JEL 11/16/2024 at 1034 EDT Performed By: #### 6 6121-5 ####[facility] LABORATORYCLIA [id number] [address] LABCLIA [id number] [address] FINAL PERFORMING LAB Normal [facility] Comment on above: Order Comment: Speci men Type: TISSUE SPECIMENOrdering Facility: [facility] Address: [address] [place] [address] Result Comment: Diag nostic interpretation performed at: [facility], [address] [place] [address] CLIA# [id number] Director: Rick Harris MD Performed By: #### 6 6121-5 ####[facility] LABORATORYCLIA [id number] [address] LABCLIA [id number] [place] [address] [place] GROSS DESCRIPTION Normal [facility] Comment on above: Order Comment: Speci men Type: TISSUE SPECIMENOrdering Facility: [facility] Address: [address] [place], [place] [address] Result Comment: Jann iglesias, BiopsyReceived in formalin are multiple pieces of espitia, soft tissue aggregating to 0.9 x 0.2 x 0.2 cm. Totally submitted in one cassette.BC November 15, 2024 4:50 PMGross examination performed at [facility], [address] [place] [address] Performed By: #### 6 6121-5 ####[facility]ORATORYCLIA [id number] [address] STATES OF [facility] LABCLIA [id number] [place] [address] [place] Phosphate SerPl-mCncon 11-13 Phosphate [Mass/Vol] 1.5 mg/dL Low 2.7-4.8 [facility] Comment on above: Order Comment: Speci men Type: BLOOD SPECIMENOrdering Facility: [facility] Address: [address] [place] [address] Performed By: #### 2 777-1, 3016-3 ####[facility] MEMORIALIA [id number] [place] [address] [place] RUBEOLA (MEASLES)IGGon 11-13 MEASLES IGG AB, QUAL Positive Normal Positive [facility] Comment on above: Order Comment: Speci men Type: BLOOD SPECIMENOrdering Facility: [facility] Address: [address] [place] [address] Result Comment: The result suggests recent or past exposure to Measles virus or Measles vaccination. The current test does not detect neutralizing antibodies. Positive result may also be seen due to presence of passively-transferred antibodies. Please correlate with patient's history. Performed By: #### 7 852-7, MEASLG, VZVG2, 1987- ####[facility] LABCLIA [id number] [place] [address] [place] Reagin and Treponema pallidu m IgG and IgM [Interp]on 11-13-2024 T. pallidum IgG+IgM IA Ql (S) Non-Reactive Normal Nonreactive [facility] Comment on above: Order Comment: Speci men Type: BLOOD SPECIMENOrdering Facility: [facility] Address: [address] [place] [address] Performed By: #### 7 3752-8, SHMUEL SORENSEN MUMPSG ####[facility] LABCLIA [id number] [place] [address] [place] Reagin+T pallidum IgG+IgM Se rPl-Impon 11-13-2024 Reagin and Treponema pallidum IgG and IgM [Interp] Cannot exclude recent Treponemal infection if specimen collected within 7-10 days after appearance of suspect lesions or 2-3 weeks after an exposure. Clinical correlation is required. Normal [facility] Comment on above: Order Comment: Speci men Type: BLOOD SPECIMENOrdering Facility: [facility] Address: [address] [place] [address] Performed By: #### 7 3752-8, SHMUEL SORENSEN MUMPSLoki ####[facility] LABCLIA [id number] [place] [address] [place] STAPHYLOCOCCUS AUREUS AND MR SA SCREEN, PCR, NASALon 11-13-2024 S. aureus and MRSA panel ANANTH+probe (Nose) Not detected Normal Not Detected [facility] Comment on above: Order Comment: Speci men Type: SWABOrdering Facility: [facility] Address: [address] [place] [address] Performed By: #### S APCR ####[facility] LABCLIA [id number] [place] [address] [place] STRONGYLOIDES IGG BLon 11-13 STRONGYLOIDES IGG QUALITATIVE Negative Normal Negative [facility] Comment on above: Order Comment: Speci men Type: BLOOD SPECIMENOrdering Facility: [facility] Address: [address] [place] [address] Performed By: #### S TRSER ####[facility] LABCLIA [id number] [place] [address] [place] Performed By: #### 7 3752-8, AHAVGSHMUEL MUMPSG ####[facility] LABCLIA [id number] [address] [address] [place] T. gondii IgG Qn (S)on 11-13 TOXO IGG QUAL Negative Normal Negative [facility] Comment on above: Order Comment: Speci james Type: BLOOD SPECIMENOrdering Facility: [facility] Address: [address] [place] [address] Result Comment: No s erological evidence of past exposure to Toxoplasma gondii. Cannot exclude recent infection if the specimen collected within 3-4 weeks after infection. Performed By: #### 8 039-0, 7885-7 ####[facility] LABIA [id number] [address] [place] THERAPY NTon 11-13-2024 THERAPY NT Normal [facility] TOXICOLOGY PANEL BLDon 11-13 Acetaminophen [Mass/Vol] ug/mL Low 10-30 [facility] Comment on above: Order Comment: Ezekiel ramirez Type: BLOOD SPECIMENOrdering Facility: [facility] Address: [address] [place] [address] Result Comment: Toxi c > 150 ug/mL 4 hours post ingestionThe Viviana Figueroa nomogram can be used to estimate the probability of hepatotoxicity via the relationship of plasma acetaminophen concentration to the post ingestion interval. (Skylar. Pediatrics. 1975. 55:871 to 876 and Viviana et al. Arch Long Term Care Administrator Med. 1981. 141:380 to 385).Reference ranges and high/low indicator flags are provided as general guidelines only. The treating physician must determine appropriate target levels/dosing based on the specific clinical situation. Performed By: #### T OXP ####[facility] LABCLIA [id number] [place] [address] [place] Ethanol [Mass/Vol] mg/dL Normal <11 [facility] Comment on above: Order Comment: Ezekiel ramirez Type: BLOOD SPECIMENOrdering Facility: [facility] Address: [address] [place] [address] Performed By: #### T OXP ####[facility] LABIA [id number] [place] [address] [place] Salicylates [Mass/Vol] mg/dL Low 3.0-30.0 [facility] Comment on above: Order Comment: Ezekiel ramirez Type: BLOOD SPECIMENOrdering Facility: [facility] Address: [address] [place] [address] Result Comment: The therapeutic range varies and has been reported to be 3.0 to 10.0 mg/dL for anti pyretic/analgesic conditions and 15.0 to 30.0 mg/dL for anti inflammatory/rheumatic fever conditions. Ranges published by the instrument epic prelude analyst.Reference ranges and high/low indicator flags are provided as general guidelines only. The treating physician must determine appropriate target levels/dosing based on the specific clinical situation. Performed By: #### T OXP ####[facility] LABIA [id number] [place] [address] [place] TSH SerPl-aCncon 11-13-2024 TSH Qn 0.633 m[IU]/L Normal 0.270-4.200 [facility] Comment on above: Order Comment: Ezekiel ramirez Type: BLOOD SPECIMENOrdering Facility: [facility] Address: [address] [place] [address] Performed By: #### 2 777-1, 3016-3 ####[facility] LABIA [id number] [place] [address] [place] Upper GI endoscopyon 025 Upper GI endoscopy Normal [facility] VARICELLA ZOSTER IGGon 11-13 VARICELLA ZOSTER IGG, QUAL Positive Normal Positive [facility] Comment on above: Order Comment: Ezekiel ramirez Type: BLOOD SPECIMENOrdering Facility: [facility] Address: [address] [place] [address] Result Comment: The result suggests recent or past exposure to Varicella-Zoster virus or chickenpox vaccination or zoster vaccination. Positive result may also be seen due to presence of passively-transferred antibodies. Please correlate with patient's history. Performed By: #### 7 852-7, MEASLG, VZVG2, 1987-10 ####[facility] LABCLIA [id number] [place] [address] [place] Vit A SerPl-mCncon Retinol [Mass/Vol] 0.03 mg/L Low 0.30-1.20 [facility] Comment on above: Order Comment: Ezekiel ramirez Type: BLOOD SPECIMENOrdering Facility: [facility] Address: [address] [place] [address] Result Comment: This test was developed, and its performance characteristics determined by the [facility] Department of Pathology and Laboratory Medicine. It has not been cleared or approved by the FDA. The [facility] Department of Pathology and Laboratory Medicine is regulated under CLIA as qualified to perform high-complexity testing. This test is used for clinical purposes. It should not be regarded as investigational or for research. Performed By: #### 2 923-1, 1823-4 ####[facility] LABCLIA [id number] [address] STATES OF [facility] Zinc SerPl-mCncon 11-13-2024 Zinc [Mass/Vol] 60 ug/dL Normal 60-120 [facility] Comment on above: Order Comment: Ezekiel ramirez Type: BLOOD SPECIMENOrdering Facility: [facility] Address: [address] [place] [address] Result Comment: This test was developed, and its performance characteristics determined by the [facility] Department of Pathology and Laboratory Medicine. It has not been cleared or approved by the FDA. The [facility] Department of Pathology and Laboratory Medicine is regulated under CLIA as qualified to perform high-complexity testing. This test is used for clinical purposes. It should not be regarded as investigational or for research. Performed By: #### 5 763-8 ####[facility] LABCLIA [id number] [place] [address] [place] AFP SerPl-mCncon 11-12-2024 AFP [Mass/Vol] 2.25 ng/mL Normal <9.00 [facility] Comment on above: Order Comment: Speci men Type: BLOOD SPECIMENOrdering Facility: [facility] Address: [address] [place] [address] Result Comment: The Alpha-Fetoprotein test was performed using the [employer] DxI immunoenzymatic assay. Results obtained with different assay methods or kits cannot be used interchangeably. Performed By: #### 1 834-1 ####[facility] LABCLIA [id number] [address] ARTERIAL BLOOD GASESon 11-12 Base deficit (BldA) [Moles/Vol] -8 mmol/L Low -2-0 [facility] Comment on above: Order Comment: Speci men Type: ARTERIAL BLOOD SPECIMENOrdering Facility: [facility] Address: [address] [place] [address] Performed By: #### A LLBG ####[facility] LABCLIA [id number] [address] Body temperature 98.6 [degF] Normal [facility] Comment on above: Order Comment: Speci men Type: ARTERIAL BLOOD SPECIMENOrdering Facility: [facility] Address: [address] [place] [address] Performed By: #### A LLBG ####[facility] LABCLIA [id number] [address] [place] Calcium.ionized (Bld) [Mass/Vol] 1.20 mmol/L Normal 1.08-1.30 [facility] [facility] Comment on above: Order Comment: Speci men Type: ARTERIAL BLOOD SPECIMENOrdering Facility: [facility] Address: [address] [place] [address] Performed By: #### A LLBG ####[facility] LABCLIA [id number] [address] [place] [address] [place] Calcium.ionized adjusted to pH 7.4 (BldA) [Moles/Vol] 1.24 mmol/L Normal 1.08-1.30 [facility] Comment on above: Order Comment: Speci men Type: ARTERIAL BLOOD SPECIMENOrdering Facility: [facility] Address: [address] [place] [address] Performed By: #### A LLBG ####[facility] LABCLIA [id number] [place] [address] [place] Carboxyhemoglobin (BldA) [Mass fraction] 2.0 % Normal 0.0-2.0 [facility] Comment on above: Order Comment: Speci men Type: ARTERIAL BLOOD SPECIMENOrdering Facility: [facility] Address: [address] [place] [address] Result Comment: Carb oxyhemoglobin Reference Range for Smokers: 2.0-8.0% Performed By: #### A LLBG ####[facility] LABCLIA [id number] [place] [address] [place] CO2 (Bld) [Partial pressure] 21 mm Hg Low 36-46 [facility] Comment on above: Order Comment: Speci men Type: ARTERIAL BLOOD SPECIMENOrdering Facility: [facility] Address: [address] [place] [address] Performed By: #### A LLBG ####[facility] LABCLIA [id number] [place] [address] [place] Glucose [Mass/Vol] 276 mg/dL High 60-105 [facility] Comment on above: Order Comment: Speci men Type: ARTERIAL BLOOD SPECIMENOrdering Facility: [facility] Address: [address] [place] [address] Performed By: #### A LLBG ####[facility] LABCLIA [id number] [place] [address] [place] HCO3 (Bld) [Moles/Vol] 15 mmol/L Low 22-26 [facility] Comment on above: Order Comment: Speci men Type: ARTERIAL BLOOD SPECIMENOrdering Facility: [facility] Address: [address] [place] [address] Performed By: #### A LLBG ####[facility] LABIA [id number] [place] [id number] [place] Hematocrit (Bld) [Volume fraction] 22.4 % Low 39.0-51.0 [facility] Comment on above: Order Comment: Speci men Type: ARTERIAL BLOOD SPECIMENOrdering Facility: [facility] Address: [address] [place] [address] Performed By: #### A LLBG ####[facility] LABIA [id number] [place] [address] [place] Hemoglobin (Bld) [Mass/Vol] 7.2 g/dL Low 13.0-17.0 [facility] Comment on above: Order Comment: Speci men Type: ARTERIAL BLOOD SPECIMENOrdering Facility: [facility] Address: [address] [place] [address] Performed By: #### A LLBG ####[facility] LABIA [id number] [place] [address] [place] Lactate [Moles/Vol] 2.9 mmol/L High 0.5-2.2 [facility] Comment on above: Order Comment: Speci men Type: ARTERIAL BLOOD SPECIMENOrdering Facility: [facility] Address: [address] [place] [address] Performed By: #### A LLBG ####[facility] LABIA [id number] [place] [address] [place] Methemoglobin (Bld) [Mass fraction] 1.0 % Normal 0.0-1.5 [facility] Comment on above: Order Comment: Speci men Type: ARTERIAL BLOOD SPECIMENOrdering Facility: [facility] Address: [address] [place] [address] Performed By: #### A LLBG ####[facility] LABCLIA [id number] [address] [address] [place] O2 THERAPY RA=Room Air Normal [facility] Comment on above: Order Comment: Speci men Type: ARTERIAL BLOOD SPECIMENOrdering Facility: [facility] Address: [address] [place], [place] [id number] Performed By: #### A LLBG ####[facility] LABCLIA [id number] [address] [address] [place] Oxygen (Bld) [Partial pressure] 94 mm Hg Normal 85-95 [facility] Comment on above: Order Comment: Speci men Type: ARTERIAL BLOOD SPECIMENOrdering Facility: [facility] Address: [address] [place] [address] Performed By: #### A LLBG ####[facility] LABCLIA [id number] [place] [id number] [place] Oxyhemoglobin (BldA) [Mass fraction] 96 % Normal 95-98 [facility] Comment on above: Order Comment: Speci men Type: ARTERIAL BLOOD SPECIMENOrdering Facility: [facility] Address: [address] [place] [address] Performed By: #### A LLBG ####[facility] LABCLIA [id number] [place] [id number] [place] pH (Bld) 7.46 [pH] High 7.35-7.45 [facility] Comment on above: Order Comment: Speci men Type: ARTERIAL BLOOD SPECIMENOrdering Facility: [facility] Address: [address] [place], [place] [id number] Performed By: #### A LLBG ####[facility] LABCLIA [id number] [address] [address] [place] PO2 / FIO2 RATIO 448 mmHg Normal >300 [facility] Comment on above: Order Comment: Speci men Type: ARTERIAL BLOOD SPECIMENOrdering Facility: [facility] Address: [address] [place] [address] Performed By: #### A LLBG ####[facility] LABCLIA [id number] [place] [address] [place] Potassium [Moles/Vol] 3.9 mmol/L Normal 3.5-5.0 [facility] Comment on above: Order Comment: Speci men Type: ARTERIAL BLOOD SPECIMENOrdering Facility: [facility] Address: [address] [place] [address] Performed By: #### A LLBG ####[facility] LABCLIA [id number] [place] [address] [place] Sodium [Moles/Vol] 124 mmol/L Low 136-144 [facility] Comment on above: Order Comment: Speci men Type: ARTERIAL BLOOD SPECIMENOrdering Facility: [facility] Address: [address] [place] [address] Performed By: #### A LLBG ####[facility] LABCLIA [id number] [place] [id number] [place] Bacteria Ur Culton Bacteria identified Cx Nom (U) Normal [facility] Comment on above: Performed By: #### 6 30-4, 85657-9 ####[facility] LABCLIA [id number] [place] [id number] [place] Basic metabolic 2000 panelon 11-12-2024 Anion gap [Moles/Vol] 11 mmol/L Normal 8-15 [facility] Comment on above: Order Comment: Speci men Type: BLOOD SPECIMENOrdering Facility: [facility] Address: [address] [place] [address] Performed By: #### 2 4321-2, 39558-8, 2777-1 ####[facility] LABCLIA [id number] [place] [id number] [place] Calcium [Mass/Vol] 9.2 mg/dL Normal 8.5-10.2 [facility] Comment on above: Order Comment: Speci men Type: BLOOD SPECIMENOrdering Facility: [facility] Address: [address] [place] [address] Performed By: #### 2 4321-2, 25815-7, 277-1 ####[facility] LABCLIA [id number] [address] [address] [place] Chloride [Moles/Vol] 99 mmol/L Normal 98-107 [facility] Comment on above: Order Comment: Speci men Type: BLOOD SPECIMENOrdering Facility: [facility] Address: [address] [place] [address] Performed By: #### 2 4321-2, 28156-7, 277- ####[facility] LABCLIA [id number] [place] [id number] [place] CO2 [Moles/Vol] 14 mmol/L Low 22-30 [facility] Comment on above: Order Comment: Speci men Type: BLOOD SPECIMENOrdering Facility: [facility] Address: [address] [place] [address] Performed By: #### 2 4321-2, 56356-2, 2776-08 ####[facility] LABCLIA [id number] [address] [address] [place] Creatinine [Mass/Vol] 1.22 mg/dL Normal 0.73-1.22 [facility] Comment on above: Order Comment: Speci men Type: BLOOD SPECIMENOrdering Facility: [facility] Address: [address] [place] [address] Performed By: #### 2 4321-2, 40462-7, 277-1 ####[facility] LABCLIA [id number] [address] [address] [place] Creatinine and Glomerular filtration rate.predicted panel (S/P/Bld) 69 mL/min/1.73m??? Normal >=60 [facility] Comment on above: Order Comment: Ezekiel ramirez Type: BLOOD SPECIMENOrdering Facility: [facility] Address: [address] [place] [address] Result Comment: Patric mated Glomerular Filtration Rate [...] actual GFR. Performed By: #### 2 4321-2, 08672-2, 2777-1 ####[facility] [id number] [place] [address] [place] Glucose [Mass/Vol] 304 mg/dL High 74-99 [facility] Comment on above: Order Comment: Ezekiel ramirez Type: BLOOD SPECIMENOrdering Facility: [facility] Address: [address] [place] [address] Result Comment: The [place] [employer] (ADA) provides guidance for cutoff [...] Standards of Medical Care in Diabetes 2016, [place] [employer]. Diabetes Care. 2016.39(Suppl 1). Performed By: #### 2 4321-2, 88701-3, 2777-1 ####[facility] LABIA [id number] [place] [id number] [place] Potassium [Moles/Vol] 4.3 mmol/L Normal 3.7-5.1 [facility] Comment on above: Order Comment: Speci men Type: BLOOD SPECIMENOrdering Facility: [facility] Address: [address] [place], [place] [address] Performed By: #### 2 4321-2, 57463-3, 2776-08 ####[facility] LABCLIA [id number] [address] [address] [place] Sodium [Moles/Vol] 124 mmol/L Low 136-144 [facility] Comment on above: Order Comment: Speci men Type: BLOOD SPECIMENOrdering Facility: [facility] Address: [address] [place], [place] [address] Performed By: #### 2 4321-2, 80072-7, 2776-08 ####[facility] LABCLIA [id number] [place] [address] [place] Urea nitrogen [Mass/Vol] 22 mg/dL Normal 9-24 [facility] Comment on above: Order Comment: Speci men Type: BLOOD SPECIMENOrdering Facility: [facility] Address: [address] [place] [address] Performed By: #### 2 4321-2, 91435-2, 2776-08 ####[facility] LABCLIA [id number] [place] [id number] [place] CASE MGT INIT ASSESon 2024 CASE MGT INIT ASSES Normal [facility] CBC W/Diff, Automatedon 11-02 Absolute Neut Normal 2.0-7.7 [facility] Comment on above: Result Comment: Canc elled via OM: Order cancelled - Patient discharged Performed By: #### L 500.2500, L100.0100 ####[facility] [address] [place], [place], [id number] HCT Normal 40-54 [facility] Comment on above: Result Comment: Canc elled via OM: Order cancelled - Patient discharged Performed By: #### L 500.2500, L100.0100 ####[facility] [address] [place], [address] HGB Normal 13.0-16.5 [facility] Comment on above: Result Comment: Canc elled via OM: Order cancelled - Patient discharged Performed By: #### L 500.2500, L100.0100 ####[facility] [address] [place], [address] MCH Normal 27.0-32.0 [facility] Comment on above: Result Comment: Canc elled via OM: Order cancelled - Patient discharged Performed By: #### L 500.2500, L100.0100 ####[facility] [address] [place], [address] MCHC Normal 32-36 [facility] Comment on above: Result Comment: Canc elled via OM: Order cancelled - Patient discharged Performed By: #### L 500.2500, L100.0100 ####[facility] [address] [place], [address] MCV Normal 80-94 [facility] Comment on above: Result Comment: Canc elled via OM: Order cancelled - Patient discharged Performed By: #### L 500.2500, L100.0100 ####[facility] [address] [place], [address] NEUT% Normal 47-70 [facility] Comment on above: Result Comment: Canc elled via OM: Order cancelled - Patient discharged Performed By: #### L 500.2500, L100.0100 ####[facility] [address] [place], [address] PLT Normal 150-450 [facility] Comment on above: Result Comment: Canc elled via OM: Order cancelled - Patient discharged Performed By: #### L 500.2500, L100.0100 ####[facility] [address] [place], [address] RBC Normal 4.6-6.2 [facility] Comment on above: Result Comment: Canc elled via OM: Order cancelled - Patient discharged Performed By: #### L 500.2500, L100.0100 ####[facility] [address] [place], [address] RDW CV Normal 11.6-14.6 [facility] Comment on above: Result Comment: Canc elled via OM: Order cancelled - Patient discharged Performed By: #### L 500.2500, L100.0100 ####[facility] [address] [place], [address] RDW SD Normal 35.1-43.9 [facility] Comment on above: Result Comment: Canc elled via OM: Order cancelled - Patient discharged Performed By: #### L 500.2500, L100.0100 ####[facility] [address] [place], [address] WBC Normal 4.4-11.0 [facility] Comment on above: Result Comment: Canc elled via OM: Order cancelled - Patient discharged Performed By: #### L 500.2500, L100.0100 ####[facility] [address] [place], [address] CBC panel Auto (Bld)on 11-12 Erythrocyte distribution width (RBC) [Ratio] 16.9 % High 11.5-15.0 [facility] Comment on above: Order Comment: Speci men Type: BLOOD SPECIMENOrdering Facility: [facility] Address: [address] [place] [address] Performed By: #### 5 8410-2 ####[facility] LABCLIA [id number] [address] [address] [place] Hematocrit (Bld) [Volume fraction] 21.7 % Low 39.0-51.0 [facility] Comment on above: Order Comment: Speci men Type: BLOOD SPECIMENOrdering Facility: [facility] Address: [address] [place] [address] Performed By: #### 5 8410-2 ####[facility] LABCLIA [id number] [place] [address] [place] Hemoglobin (Bld) [Mass/Vol] 7.5 g/dL Low 13.0-17.0 [facility] Comment on above: Order Comment: Speci men Type: BLOOD SPECIMENOrdering Facility: [facility] Address: [address] [place] [address] Performed By: #### 5 8410-2 ####[facility] LABCLIA [id number] [place] [address] [place] MCH (RBC) [Entitic mass] 31.5 pg Normal 26.0-34.0 [facility] Comment on above: Order Comment: Speci men Type: BLOOD SPECIMENOrdering Facility: [facility] Address: [address] [place] [address] Performed By: #### 5 8410-2 ####[facility] LABCLIA [id number] [place] [address] [place] MCHC (RBC) [Mass/Vol] 34.6 g/dL Normal 30.5-36.0 [facility] Comment on above: Order Comment: Speci men Type: BLOOD SPECIMENOrdering Facility: [facility] Address: [address] [place] [address] Performed By: #### 5 8410-2 ####[facility] LABCLIA [id number] [place] [address] [place] MCV (RBC) [Entitic vol] 91.2 fL Normal 80.0-100.0 [facility] Comment on above: Order Comment: Speci men Type: BLOOD SPECIMENOrdering Facility: [facility] Address: [address] [place] [address] Performed By: #### 5 8410-2 ####[facility] LABCLIA [id number] [address] [address] [place] Nucleated RBC (Bld) [#/Vol] 10*3/uL Normal <0.01 [facility] Comment on above: Order Comment: Speci men Type: BLOOD SPECIMENOrdering Facility: [facility] Address: [address] [place] [address] Performed By: #### 5 8410-2 ####[facility] LABIA [id number] [place] [address] [place] Platelet mean volume (Bld) [Entitic vol] 10.8 fL Normal 9.0-12.7 [facility] Comment on above: Order Comment: Speci men Type: BLOOD SPECIMENOrdering Facility: [facility] Address: [address] [place] [address] Performed By: #### 5 8410-2 ####[facility] [id number] [place] [address] [place] Platelets (Bld) [#/Vol] 31 10*3/uL Low 150-400 [facility] Comment on above: Order Comment: Speci men Type: BLOOD SPECIMENOrdering Facility: [facility] Address: [address] [place] [address] Result Comment: Resu lts checked and verified.No clot detected. Performed By: #### 5 8410-2 ####[facility] LABIA [id number] [place] [address] [place] RBC (Bld) [#/Vol] 2.38 10*6/uL Low 4.20-6.00 [facility] Comment on above: Order Comment: Speci men Type: BLOOD SPECIMENOrdering Facility: [facility] Address: [address] [place] [address] Performed By: #### 5 8410-2 ####[facility] LABIA [id number] [address] [address] [place] WBC (Bld) [#/Vol] 6.35 10*3/uL Normal 3.70-11.00 [facility] Comment on above: Order Comment: Speci men Type: BLOOD SPECIMENOrdering Facility: [facility] Address: [address] [place] [address] Performed By: #### 5 8410-2 ####[facility] LABCLIA [id number] [place] [address] [place] Erythrocyte distribution width (RBC) [Ratio] 17.3 % High 11.5-15.0 [facility] Comment on above: Order Comment: Speci men Type: BLOOD SPECIMENOrdering Facility: [facility] Address: [address] [place] [address] Performed By: #### 5 8410-2 ####[facility] LABCLIA [id number] [address] [place] Hematocrit (Bld) [Volume fraction] 22.9 % Low 39.0-51.0 [facility] Comment on above: Order Comment: Speci men Type: BLOOD SPECIMENOrdering Facility: [facility] Address: [address] [place] [address] Performed By: #### 5 8410-2 ####[facility] LABCLIA [id number] [place] [address] [place] Hemoglobin (Bld) [Mass/Vol] 7.9 g/dL Low 13.0-17.0 [facility] Comment on above: Order Comment: Speci men Type: BLOOD SPECIMENOrdering Facility: [facility] Address: [address] [place] [address] Performed By: #### 5 8410-2 ####[facility] LABCLIA [id number] [place] [id number] [place] MCH (RBC) [Entitic mass] 31.5 pg Normal 26.0-34.0 [facility] Comment on above: Order Comment: Speci men Type: BLOOD SPECIMENOrdering Facility: [facility] Address: [address] [place] [address] Performed By: #### 5 8410-2 ####[facility] [id number] [place] [address] [place] MCHC (RBC) [Mass/Vol] 34.5 g/dL Normal 30.5-36.0 [facility] Comment on above: Order Comment: Speci men Type: BLOOD SPECIMENOrdering Facility: [facility] Address: [address] [place] [address] Performed By: #### 5 8410-2 ####[facility] [id number] [place] [address] [place] MCV (RBC) [Entitic vol] 91.2 fL Normal 80.0-100.0 [facility] Comment on above: Order Comment: Speci men Type: BLOOD SPECIMENOrdering Facility: [facility] Address: [address] [place] [address] Performed By: #### 5 8410-2 ####[facility] [id number] [place] [address] [place] Nucleated RBC (Bld) [#/Vol] 10*3/uL Normal <0.01 [facility] Comment on above: Order Comment: Speci men Type: BLOOD SPECIMENOrdering Facility: [facility] Address: [address] [place] [address] Performed By: #### 5 8410-2 ####[facility] [id number] [place] [address] [place] Platelet mean volume (Bld) [Entitic vol] 11.6 fL Normal 9.0-12.7 [facility] Comment on above: Order Comment: Speci men Type: BLOOD SPECIMENOrdering Facility: [facility] Address: [address] [place] [address] Performed By: #### 5 8410-2 ####[facility] LABCLIA [id number] [place] [address] [place] Platelets (Bld) [#/Vol] 33 10*3/uL Low 150-400 [facility] Comment on above: Order Comment: Speci men Type: BLOOD SPECIMENOrdering Facility: [facility] Address: [address] [place] [address] Result Comment: Resu lts checked and verified.No clot detected. Performed By: #### 5 8410-2 ####[facility] LABIA [id number] [place] [address] [place] RBC (Bld) [#/Vol] 2.51 10*6/uL Low 4.20-6.00 [facility] Comment on above: Order Comment: Speci men Type: BLOOD SPECIMENOrdering Facility: [facility] Address: [address] [place] [address] Performed By: #### 5 8410-2 ####[facility] LABIA [id number] [place] [address] [place] WBC (Bld) [#/Vol] 7.27 10*3/uL Normal 3.70-11.00 [facility] Comment on above: Order Comment: Speci men Type: BLOOD SPECIMENOrdering Facility: [facility] Address: [address] [place] [address] Performed By: #### 5 8410-2 ####[facility] LABIA [id number] [place] [id number] [place] CITRATED PLATELET COUNTon CITRATED PLATELET COUNT (WAM) 33 k/uL Low 150-400 [facility] Comment on above: Order Comment: Speci men Type: BLOOD SPECIMENOrdering Facility: [facility] Address: [address] [place] [address] Result Comment: Plat elet count confirmed by manual review of peripheral blood smear. No clot detected. Performed By: #### C ITPLT ####[facility] LABCLIA [id number] [place] [address] [place] CNCNPATEDon 11-12-2024 CNCNPATED Normal [facility] CNPNon 11-12-2024 CNPN Normal [facility] CONFIRM BLOOD TYPEon 025 ABO O Normal [facility] Comment on above: Order Comment: Speci men Type: BLOOD SPECIMENOrdering Facility: [facility] Address: [address] [place] [address] Performed By: #### C ONABO ####[facility] BLOOD BANKCLIA [id number] [place] [address] [place] Rh Nom (Bld) Positive Normal [facility] Comment on above: Order Comment: Speci men Type: BLOOD SPECIMENOrdering Facility: [facility] Address: [address] [place] [address] Performed By: #### C ONABO ####[facility] BLOOD BANKCLIA [id number] [place] [address] [place] CONSULTon 11-12-2024 CONSULT Normal [facility] CONSULT Normal [facility] CON[facility]ULT Normal [facility] [facility] CONSULT Normal [facility] CONSULT Normal [facility] CONSULT Normal [facility] CT CHEST WO IVCONon 11-13-[address] CHEST WO IVCON Normal [facility] Comprehensive Metabolic Prof ilon 11-12-2024 ALB Normal 3.5-5.0 [facility] Comment on above: Result Comment: Canc elled via OM: Order cancelled - Patient discharged Performed By: #### L 500.4050 ####[facility] [address] [place], [address] ALK PHOS Normal 40-129 [facility] Comment on above: Result Comment: Canc elled via OM: Order cancelled - Patient discharged Performed By: #### L 500.4050 ####[facility] [address] [place], [address] ALT Normal <=46 [facility] Comment on above: Result Comment: Canc elled via OM: Order cancelled - Patient discharged Performed By: #### L 500.4050 ####[facility] [address] [place], [address] AST Normal <=37 [facility] Comment on above: Result Comment: Canc elled via OM: Order cancelled - Patient discharged Performed By: #### L 500.4050 ####[facility] [address] [place], [address] BUN Normal 4-19 [facility] Comment on above: Result Comment: Canc elled via OM: Order cancelled - Patient discharged Performed By: #### L 500.4050 ####[facility] [address] [place], [address] Result Comment: Canc elled via OM: MD Ordered Performed By: #### L 500.2500, L100.0100 ####[facility] [address] [place], [address] BUN/CRE Normal 10-20 [facility] Comment on above: Result Comment: Canc elled via OM: Order cancelled - Patient discharged Performed By: #### L 500.4050 ####[facility] [address] [place], [address] Result Comment: Canc elled via OM: MD Ordered Performed By: #### L 500.2500, L100.0100 ####[facility] [address] [place], [address] Calcium Normal 7.6-11.0 [facility] Comment on above: Result Comment: Canc elled via OM: Order cancelled - Patient discharged Performed By: #### L 500.4050 ####[facility] [address] [place], [address] Result Comment: Canc elled via OM: MD Ordered Performed By: #### L 500.2500, L100.0100 ####[facility] [address] [place], [address] CL Normal 98-108 [facility] Comment on above: Result Comment: Canc elled via OM: Order cancelled - Patient discharged Performed By: #### L 500.4050 ####[facility] [address] [place], [address] Result Comment: Canc elled via OM: MD Ordered Performed By: #### L 500.2500, L100.0100 ####[facility] [address] [place], [address] CO2 Normal 21.0-32.0 [facility] Comment on above: Result Comment: Canc elled via OM: Order cancelled - Patient discharged Performed By: #### L 500.4050 ####[facility] [address] [place], [address] Result Comment: Canc elled via OM: MD Ordered Performed By: #### L 500.2500, L100.0100 ####[facility] [address] [place], [address] CREAT,SERUM Normal 0.70-1.20 [facility] Comment on above: Result Comment: Canc elled via OM: Order cancelled - Patient discharged Performed By: #### L 500.4050 ####[facility] [address] [place], [address] Result Comment: Canc elled via OM: MD Ordered Performed By: #### L 500.2500, L100.0100 ####[facility] [address] [place], [address] eGFR Normal >60 [facility] Comment on above: Result Comment: Canc elled via OM: Order cancelled - Patient discharged Performed By: #### L 500.4050 ####[facility] [address] [place], [address] Result Comment: Canc elled via OM: MD Ordered Performed By: #### L 500.2500, L100.0100 ####[facility] [address] [place], [address] GAP Normal 5-15 [facility] Comment on above: Result Comment: Canc elled via OM: Order cancelled - Patient discharged Performed By: #### L 500.4050 ####[facility] [address] [place], [address] Result Comment: Canc elled via OM: MD Ordered Performed By: #### L 500.2500, L100.0100 ####[facility] [address] [place], [address] GLU Normal 70-99 [facility] Comment on above: Result Comment: Canc elled via OM: Order cancelled - Patient discharged Performed By: #### L 500.4050 ####[facility] [address] [place], [address] Result Comment: Canc elled via OM: MD Ordered Performed By: #### L 500.2500, L100.0100 ####[facility] [address] [place], [address] Potassium Normal 3.3-5.1 [facility] Comment on above: Result Comment: Canc elled via OM: Order cancelled - Patient discharged Performed By: #### L 500.4050 ####[facility] [address] [place], [address] Result Comment: Canc elled via OM: MD Ordered Performed By: #### L 500.2500, L100.0100 ####[facility] [address] [place], [address] T BILI Normal 0.00-1.30 [facility] Comment on above: Result Comment: Canc elled via OM: Order cancelled - Patient discharged Performed By: #### L 500.4050 ####[facility] [address] [place], [address] T PROT Normal 5.9-8.4 [facility] Comment on above: Result Comment: Canc elled via OM: Order cancelled - Patient discharged Performed By: #### L 500.4050 ####[facility] [address] [place], [address] Comprehensive Metabolic Profil Normal 133-145 [facility] Comment on above: Result Comment: Canc elled via OM: Order cancelled - Patient discharged Performed By: #### L 500.4050 ####[facility] [address] [place], [address] Result Comment: Canc elled via OM: MD Ordered Performed By: #### L 500.2500, L100.0100 ####[facility] [address] [place], [address] D dimer FEU PPP-mCncon 11-12 Fibrin D-dimer FEU (PPP) [Mass/Vol] 3850 ng/mL FEU High <500 [facility] Comment on above: Order Comment: Speci men Type: BLOOD SPECIMENOrdering Facility: [facility] Address: [address] [place] [address] Performed By: #### 4 8065-7 ####[facility] LABCLIA [id number] [place] [address] [place] ECHO WITH AGITATED SALINE CO NTRASTon 11-12-2024 ECHO WITH AGITATED SALINE CONTRAST Normal [facility] Fibrin D-dimer FEU (PPP) [Ma ss/Vol]on 11-12-2024 D DIMER AGE-RELATED CUTOFF 580 ng/mL FEU Normal [facility] Comment on above: Order Comment: Speci men Type: BLOOD SPECIMENOrdering Facility: [facility] Address: [address] [place] [address] Performed By: #### 4 8065-7 ####[facility] LABIA [id number] [address] [address] [place] Hepatic function 2000 panelo n 11-12-2024 Albumin [Mass/Vol] 3.0 g/dL Low 3.9-4.9 [facility] Comment on above: Order Comment: Speci men Type: BLOOD SPECIMENOrdering Facility: [facility] Address: [address] [place] [address] Performed By: #### 2 4321-2, 96978-4, 2777-1 ####[facility] LABIA [id number] [place] [address] [place] ALP [Catalytic activity/Vol] 252 U/L High 38-113 [facility] Comment on above: Order Comment: Speci men Type: BLOOD SPECIMENOrdering Facility: [facility] Address: [address] [place] [address] Performed By: #### 2 4321-2, 03467-5, 2777-1 ####[facility] LABIA [id number] [place] [address] [place] ALT [Catalytic activity/Vol] 24 U/L Normal 10-54 [facility] Comment on above: Order Comment: Speci men Type: BLOOD SPECIMENOrdering Facility: [facility] Address: [address] [place] [address] Performed By: #### 2 4321-2, 96017-5, 2777-1 ####[facility] LABIA [id number] [place] [id number] [place] AST [Catalytic activity/Vol] 41 U/L High 14-40 [facility] Comment on above: Order Comment: Speci men Type: BLOOD SPECIMENOrdering Facility: [facility] Address: [address] [place], [place] [id number] Performed By: #### 2 4321-2, 29279-6, 2776- ####[facility] LABCLIA [id number] [address] [address] [place] Bilirubin [Mass/Vol] 1.8 mg/dL High 0.2-1.3 [facility] Comment on above: Order Comment: Speci men Type: BLOOD SPECIMENOrdering Facility: [facility] Address: [address] [place] [address] Performed By: #### 2 4321-2, 59109-4, 2776-08 ####[facility] LABIA [id number] [place] [address] [place] Bilirubin.conjugated [Mass/Vol] 0.9 mg/dL High <0.3 [facility] Comment on above: Order Comment: Speci men Type: BLOOD SPECIMENOrdering Facility: [facility] Address: [address] [place] [address] Result Comment: Resu lts may be falsely decreased due to interference from hemolysis. Suggest reorder as clinically indicated. Performed By: #### 2 4321-2, 44765-0, 2776-08 ####[facility] LABCLIA [id number] [place] [address] [place] Protein [Mass/Vol] 5.5 g/dL Low 6.3-8.0 [facility] Comment on above: Order Comment: Speci men Type: BLOOD SPECIMENOrdering Facility: [facility] Address: [address] [place] [address] Performed By: #### 2 4321-2, 63256-0, 2776-08 ####[facility] LABIA [id number] [place] [id number] [place] MEDICAL EMERon 11-12-2024 MEDICAL [place] Normal [facility] NURSING PROGon 11-12-2024 NURSING PROG Normal [facility] NURSING PROG Normal [facility] NURSING PROG Normal [facility] NURSING PROG Normal [facility] NUTRITIONon 11-12-2024 NUTRITION Normal [facility] PTT, ANTICOAGULANT THERAPYon 11-12-2024 aPTT Coag (PPP) [Time] 62.6 s High 23.0-32.4 Cl [facility] Comment on above: Order Comment: Speci men Type: BLOOD SPECIMENOrdering Facility: [facility] Address: [address] [place] [address] Performed By: #### P TTAC ####[facility] LABIA [id number] [place] [address] [place] Phosphate SerPl-mCncon 11-12 Phosphate [Mass/Vol] 2.3 mg/dL Low 2.7-4.8 [facility] Comment on above: Order Comment: Speci men Type: BLOOD SPECIMENOrdering Facility: [facility] Address: [address] [place] [address] Performed By: #### 2 4321-2, 58707-8, 2777-1 ####[facility] [id number] [place] [address] [place] SOCIAL WORKon 11-12-2024 SOCIAL WORK Normal [facility] THERAPY NTon 11-12-2024 THERAPY NT Normal [facility] THERAPY NT Normal [facility] THROMBOGRAPH PANELon 025 Clot angle TEG (Bld) [Angle] 32.8 degrees Low 47.0-74.0 [facility] Comment on above: Order Comment: Speci men Type: BLOOD SPECIMENOrdering Facility: [facility] Address: [address] [place] [address] Performed By: #### T EGPNP ####[facility] LABIA [id number] [place] [id number] [place] Clot Lysis 30 Min post maximum clot amplitude TEG (Bld) [Length fraction] 0.0 % Normal 0.0-8.0 [facility] Comment on above: Order Comment: Speci men Type: BLOOD SPECIMENOrdering Facility: [facility] Address: [address] [place] [address] Performed By: #### T EGPNP ####[facility] LABIA [id number] [place] [address] [place] Clotting time TEG (Bld) 5.0 minutes Normal 4.0-10.0 [facility] Comment on above: Order Comment: Speci men Type: BLOOD SPECIMENOrdering Facility: [facility] Address: [address] [place] [address] Performed By: #### T EGPNP ####[facility] LABIA [id number] [place] [address] [place] Coagulation index TEG Qn (Bld) -8.4 Low -4.6-3.2 [facility] Comment on above: Order Comment: Speci men Type: BLOOD SPECIMENOrdering Facility: [facility] Address: [address] [place] [address] Result Comment: This test was developed, and its performance characteristics determined by the [facility] Department of Pathology and Laboratory Medicine. It has not been cleared or approved by the FDA. The [facility] Department of Pathology and Laboratory Medicine is regulated under CLIA as qualified to perform high-complexity testing. This test is used for clinical purposes. It should not be regarded as investigational or for research. Performed By: #### T EGPNP ####[facility] LABIA [id number] [place] [address] [place] Maximum clot firmness TEG (Bld) [Length] 28.5 mm Low 51.0-75.0 [facility] Comment on above: Order Comment: Speci men Type: BLOOD SPECIMENOrdering Facility: [facility] Address: [address] [place] [address] Performed By: #### T EGPNP ####[facility] LABCLIA [id number] [facility] [place] [address] [place] Thromboelastography after addtion of heparinase panel (Bld) Normal [facility] Comment on above: Order Comment: Speci men Type: BLOOD SPECIMENOrdering Facility: [facility] Address: [address] [place] [address] Result Comment: A th romboelastograph (TEG) study [...] timely manner. Performed By: #### T EGPNP ####[facility] LABIA [id number] [place] [address] [place] TOXICOLOGY SCREEN, ROUTINE U RINEon 11-12-2024 Amphetamines Confirm (U) [Mass/Vol] Negative Normal Negative [facility] Comment on above: Order Comment: Speci men Type: URINE SPECIMENOrdering Facility: [facility] Address: [address] [place] [address] Result Comment: Cuto ff threshold at 1000 ng/mL. Performed By: #### U TOX2 ####[facility] LABIA [id number] [place] [address] [place] BARBITURATES, URINE Negative Normal Negative [facility] Comment on above: Order Comment: Speci men Type: URINE SPECIMENOrdering Facility: [facility] Address: [address] [place] [address] Result Comment: Cuto ff threshold at 200 ng/mL. Performed By: #### U TOX2 ####[facility] LABCLIA [id number] [place] [address] [place] BENZODIAZEPINES, UR Negative Normal Negative [facility] Comment on above: Order Comment: Speci men Type: URINE SPECIMENOrdering Facility: [facility] Address: [address] [place] [address] Result Comment: Cuto ff threshold at 200 ng/mL. Performed By: #### U TOX2 ####[facility] LABCLIA [id number] [place] [address] [place] Cannabinoids Screen Ql (U) Negative Normal Negative [facility] Comment on above: Order Comment: Speci men Type: URINE SPECIMENOrdering Facility: [facility] Address: [address] [place] [address] Result Comment: Cuto ff threshold at 50 ng/mL. Performed By: #### U TOX2 ####[facility] LABCLIA [id number] [place] [address] [place] Cocaine Ql (U) Negative Normal Negative [facility] Comment on above: Order Comment: Speci men Type: URINE SPECIMENOrdering Facility: [facility] Address: [address] [place] [address] Result Comment: Cuto ff threshold at 300 ng/mL. Performed By: #### U TOX2 ####[facility] LABCLIA [id number] [place] [address] [place] Ethanol (U) [Mass/Vol] <11 Normal <11 [facility] Comment on above: Order Comment: Speci men Type: URINE SPECIMENOrdering Facility: [facility] Address: [address] [place] [address] Performed By: #### U TOX2 ####[facility] LABCLIA [id number] [place] [address] [place] Opiates Screen Ql (U) Negative Normal Negative [facility] Comment on above: Order Comment: Speci men Type: URINE SPECIMENOrdering Facility: [facility] Address: [address] [place] [address] Result Comment: Cuto ff threshold at 300 ng/mL. Performed By: #### U TOX2 ####[facility] LABCLIA [id number] [place] [address] [place] oxyCODONE cutoff Screen (U) [Mass/Vol] Positive Abnormal Negative [facility] Comment on above: Order Comment: Speci men Type: URINE SPECIMENOrdering Facility: [facility] Address: [address] [place] [address] Result Comment: Cuto ff threshold at 100 ng/mL. Performed By: #### U TOX2 ####[facility] LABCLIA [id number] [place] [address] [place] Phencyclidine Ql (U) Negative Normal Negative [facility] Comment on above: Order Comment: Speci men Type: URINE SPECIMENOrdering Facility: [facility] Address: [address] [place] [address] Result Comment: Cuto ff threshold at 25 ng/mL. Performed By: #### U TOX2 ####[facility] LABCLIA [id number] [place] [address] [place] TYPE + SCREENon 11-12-2024 ABO O Normal [facility] Comment on above: Order Comment: Speci men Type: BLOOD SPECIMENOrdering Facility: [facility] Address: [address] [place] [address] Performed By: #### T SCR ####[facility] BLOOD BANKCLIA [id number] [place] [address] [place] Rh Nom (Bld) Positive Normal [facility] Comment on above: Order Comment: Speci men Type: BLOOD SPECIMENOrdering Facility: [facility] Address: [address] [place] [address] Performed By: #### T SCR ####[facility] BLOOD BANKCLIA [id number] [place] [address] [place] TYPE AND SCREEN EXPIRATION 11/15/2024 23:59 Normal [facility] Comment on above: Order Comment: Speci men Type: BLOOD SPECIMENOrdering Facility: [facility] Address: [address] [place] [address] Performed By: #### T SCR ####[facility] BLOOD BANKCLIA [id number] [facility] [place] [address] [place] Urinalysis complete panel (U )on 11-12-2024 BACTERIA UL 1553.2 uL High Negative [facility] Comment on above: Order Comment: Speci men Type: URINE SPECIMENOrdering Facility: [facility] Address: [address] [place] [address] Performed By: #### 6 30-4, 49825-3 ####[facility] LABIA [id number] [place] [address] [place] Bilirubin Ql (U) 1+ Abnormal Negative [facility] Comment on above: Order Comment: Speci men Type: URINE SPECIMENOrdering Facility: [facility] Address: [address] [place] [address] Result Comment: Sugg est correlation with clinical findings and serum bilirubin if clinically indicated. Performed By: #### 6 30-4, 12957-0 ####[facility] LABCLIA [id number] [place] [id number] [place] Clarity (Unsp spec) Cloudy Abnormal Clear [facility] Comment on above: Order Comment: Speci men Type: URINE SPECIMENOrdering Facility: [facility] Address: [address] [place] [address] Performed By: #### 6 30-4, 54267-1 ####[facility] LABCLIA [id number] [place] [id number] [place] Color (U) [place] Abnormal Yellow [facility] Comment on above: Order Comment: Speci men Type: URINE SPECIMENOrdering Facility: [facility] Address: [address] [place] [address] Performed By: #### 6 30-4, 68524-5 ####[facility] LABCLIA [id number] [facility] [address] Epithelial cells LM.HPF (Urine sed) [#/Area] None Seen Normal [facility] Comment on above: Order Comment: Speci men Type: URINE SPECIMENOrdering Facility: [facility] Address: [address] [place] [address] Performed By: #### 6 30-4, 41328-7 ####[facility] LABCLIA [id number] [place] [id number] [facility] [place] Glucose Test strip (U) [Mass/Vol] Negative Normal Negative [facility] Comment on above: Order Comment: Speci men Type: URINE SPECIMENOrdering Facility: [facility] Address: [address] [place] [address] Performed By: #### 6 30-4, 96875-0 ####[facility] LABCLIA [id number] [address] [place] Hemoglobin Ql (U) 3+ Abnormal Negative [facility] Comment on above: Order Comment: Speci men Type: URINE SPECIMENOrdering Facility: [facility] Address: [address] [place] [address] Performed By: #### 6 30-4, 44260-6 ####[facility] LABCLIA [id number] [facility] [place] [id number] [place] Hyaline casts (Urine sed) [#/Area] 0 /[LPF] Normal 0 /LPF [facility] Comment on above: Order Comment: Speci men Type: URINE SPECIMENOrdering Facility: [facility] Address: [address] [place] [address] Performed By: #### 6 30-4, 69297-5 ####[facility] LABCLIA [id number] [facility] [id number] [address] [place] Ketones Ql (U) Negative Normal Negative [facility] Comment on above: Order Comment: Speci men Type: URINE SPECIMENOrdering Facility: [facility] Address: [address] [place] [address] Performed By: #### 6 30-4, 92113-8 ####[facility] LABCLIA [id number] [facility] [address] [place] [address] [place] Leukocyte esterase Test strip Ql (U) 2+ Abnormal Negative [facility] Comment on above: Order Comment: Speci men Type: URINE SPECIMENOrdering Facility: [facility] Address: [address] [place] [address] Performed By: #### 6 30-, 66173-2 ####[facility] LABCLIA [id number] [facility] [address] [place] [address] [place] Nitrite Ql (U) Negative Normal Negative [facility] Comment on above: Order Comment: Speci men Type: URINE SPECIMENOrdering Facility: [facility] Address: [address] [place] [address] Performed By: #### 6 30-4, 05654-7 ####[facility] LABCLIA [id number] [facility] [address] [place] [address] [place] [place] pH (U) 6.0 [pH] Normal <8.5 [facility] Comment on above: Order Comment: Speci men Type: URINE SPECIMENOrdering Facility: [facility] Address: [address] [place] [address] Performed By: #### 6 30-4, 10065-5 ####[facility] LABCLIA [id number] [facility] [place] [id number] [address] [place] Protein (U) [Mass/Vol] 3+ Abnormal Negative [facility] Comment on above: Order Comment: Speci men Type: URINE SPECIMENOrdering Facility: [facility] Address: [address] [place] [address] Performed By: #### 6 30-4, 99651-2 ####[facility] LABIA [id number] [place] [address] [place] RBC LM.HPF (Urine sed) [#/Area] /[HPF] Abnormal 0-2 /HPF [facility] Comment on above: Order Comment: Speci men Type: URINE SPECIMENOrdering Facility: [facility] Address: [address] [place] [address] Performed By: #### 6 30-4, 18796-3 ####[facility] LABIA [id number] [place] [address] [place] Specific gravity (U) [Rel density] 1.019 Normal 1.005-1.030 [facility] Comment on above: Order Comment: Speci men Type: URINE SPECIMENOrdering Facility: [facility] Address: [address] [place] [address] Performed By: #### 6 30-4, 90093-6 ####[facility] LABIA [id number] [place] [address] [place] Urobilinogen Ql (U) 0.2 EU/dL Normal 0.2-1.0 EU/dL [facility] Comment on above: Order Comment: Speci men Type: URINE SPECIMENOrdering Facility: [facility] Address: [address] [place] [address] Performed By: #### 6 30-4, 38414-2 ####[facility] LABIA [id number] [place] [address] [place] WBC LM.HPF (Urine sed) [#/Area] /[HPF] Abnormal 0-5 /HPF [facility] Comment on above: Order Comment: Speci men Type: URINE SPECIMENOrdering Facility: [facility] Address: [address] [place] [address] Performed By: #### 6 30-4, 08574-7 ####[facility] [id number] [place] [address] [place] ALLIED HEALTHon 11-11-2024 ALLIED HEALTH Normal [facility] ALLIED [facility] Normal [facility] ANTI PLT FACTOR 4 ABon 11-11 Heparin induced platelet IgG Marco Antonio (S) [Interp] Negative Normal Negative [facility] Comment on above: Order Comment: Speci james Type: BLOOD SPECIMENOrdering Facility: [facility] Address: [address] [place] [address] Result Comment: No a nti-platelet factor 4 IgG antibody is detected by ANDERS assay.Heparin-induced thrombocytopenia (HIT) is unlikely, but should be excluded based on clinical factors. Performed By: #### P LATF4 ####[facility] [id number] [address] Platelet factor 4 Qn (PPP) 0.184 OD Normal <0.400 [facility] Comment on above: Order Comment: Ezekiel ramirez Type: BLOOD SPECIMENOrdering Facility: [facility] Address: [address] [place] [address] Result Comment: Not calculated Performed By: #### P LATF4 ####[facility] [id number] [place] [address] [place] Albumin Fld-ncon Albumin (Body fld) [Mass/Vol] <0.2 Normal See Comment [facility] Comment on above: Order Comment: Ezekiel ramirez Type: FLUID SPECIMENOrdering Facility: [facility] Address: [address] [place] [address] Result Comment: Body Fluid Albumin may be [...] document C49A. PAULETTE Diaz: Clinical Laboratory Standards [place]: 2007.2. Amy JACKSON. Serum to ascites albumin gradient. UpToDate. 2015. Accessed on November 15, 2015.This test was developed, and its performance characteristics determined by the [facility] Department of Pathology and Laboratory Medicine. It has not been cleared or approved by the FDA. The [facility] Department of Pathology and Laboratory Medicine is regulated under CLIA as qualified to perform high-complexity testing. This test is used for clinical purposes. It should not be regarded as investigational or for research. Performed By: #### 1 747-5, 1795-4, 85929-6, 2881-1 ####[facility] LABCLIA [id number] [place] [address] [place] Fluid Nom (Body fld) Abdomen Normal [facility] Comment on above: Order Comment: Speci men Type: FLUID SPECIMENOrdering Facility: [facility] Address: [address] [place] [address] Performed By: #### 1 747-5, 1795-4, 63992-8, 2881-1 ####[facility] LABIA [id number] [place] [address] [place] Amylase Fld-cCncon 5 Amylase (Body fld) [Catalytic activity/Vol] 14 U/L Normal See Comment [facility] Comment on above: Order Comment: Speci men Type: FLUID SPECIMENOrdering Facility: [facility] Address: [address] [place] [address] Result Comment: PLEU RAL FLUIDS:Amylase measurement in [...] document C49-A. PAULETTE Diaz: Clinical Laboratory Standards [place]; 2007.3. Kelby HDZH, John RC, Star DJ. Use of cyst fluid CEA, CA19-9, and amylase for evaluation of pancreatic lesions. Clinical Biochemistry. 2009;42:7306-6850.This test was developed, and its performance characteristics determined by the [facility] Department of Pathology and Laboratory Medicine. It has not been cleared or approved by the FDA. The [facility] Department of Pathology and Laboratory Medicine is regulated under CLIA as qualified to perform high-complexity testing. This test is used for clinical purposes. It should not be regarded as investigational or for research. Performed By: #### 1 747-5, 1795-4, 73760-9, 2881-1 ####[facility] LABCLIA [id number] [place] [address] [place] Antithrombin Ag actual/philly l IA (PPP) [Relative mass conc]on 11-11-2024 Antithrombin Ag IA Qn (PPP) 32 % Low 80-120 [facility] Comment on above: Order Comment: Speci men Type: BLOOD SPECIMENOrdering Facility: [facility] Address: [address] [place] [address] Performed By: #### L [id number], OA, 6303-2, 98740-3, 38097-7 ####[facility] LABCLIA [id number] [address] [place] [address] [place] BODY FLUID CELL COUNTon 04-1 Clarity (Unsp spec) Clear Normal Clear [facility] Comment on above: Order Comment: Speci men Type: FLUID SPECIMENOrdering Facility: [facility] Address: [address] [place] [address] Performed By: #### C CBF, [id number] ####[facility] LABCLIA [id number] [address], [facility]95 [place] Color (Body fld) Colorless Normal Yellow [facility] Comment on above: Order Comment: Speci men Type: FLUID SPECIMENOrdering Facility: [facility] Address: [address] [place] [address] Performed By: #### C CBF, [id number] ####[facility] LABCLIA [id number] [place] [id number] [place] RBC Manual cnt (Body fld) [#/Vol] 2000 /uL High <2000 [facility] Comment on above: Order Comment: Speci men Type: FLUID SPECIMENOrdering Facility: [facility] Address: [address] [place] [address] Performed By: #### C CBF, [id number] ####[facility] LABCLIA [id number] [place] [id number] [place] Specimen source Nom (Body fld) Abdomen Normal [facility] Comment on above: Order Comment: Speci men Type: FLUID SPECIMENOrdering Facility: [facility] Address: [address] [place] [address] Performed By: #### C CBF, [id number] ####[facility] LABCLIA [id number] [address] [place] [address] [place] WBC Manual cnt (Body fld) [#/Vol] 70 /uL Normal <1000 [facility] Comment on above: Order Comment: Speci men Type: FLUID SPECIMENOrdering Facility: [facility] Address: [address] [place], [place] [address] Performed By: #### C JOSE, [id number] ####[facility] LABCLIA [id number] [address] [place] [address] [place] Bacteria Bld Culton 11-12-19 25 Bacteria identified Cx Nom (Bld) CULTURE, BLOOD: No growth 5 days GRAM STAIN: This blood culture had less than the recommended 8 ml per bottle, which could decrease the sensitivity of the test. Normal [facility] Comment on above: Performed By: #### 6 00-7 ####[facility] LABCLIA [id number] [address] [place] [address] [place] Bacteria identified Cx Nom (Bld) CULTURE, BLOOD: No growth 5 days Normal [facility] Comment on above: Performed By: #### 6 00-7 ####[facility] LABCLIA [id number] [address] [place] [address] [place] Bacteria Fld Culton 11-12-19 25 Bacteria identified Cx Nom (Body fld) CULTURE, BODY FLD: No growth GRAM STAIN: No organisms seen Many Polymorphonuclear leukocytes Gram stain performed on cytospun specimen. Gram stain from primary specimen Normal [facility] Comment on above: Performed By: #### 6 35-, 611-4 ####[facility] LABCLIA [id number] [address] [place] [address] [place] Bacteria Spec Anaerobe Culto n 11-11-2024 Bacteria identified Anaer cx Nom (Unsp spec) Negative Normal [facility] Comment on above: Performed By: #### 6 35-3, 611-4 ####[facility] LABCLIA [id number] [address] [place] [address] [place] Basic Metabolic Profile (BMP )on 11-11-2024 BUN Normal 4-19 [facility] Comment on above: Result Comment: Canc elled via OM: MD Ordered Performed By: #### L 100.0100, L500.2500 ####[facility] [address] [place], [address] Result Comment: PT T RANSFERRED TO DIFFERENT HOSPITAL PER DCORPORAL,RN Performed By: #### L 500.4050 ####[facility] [address] [place], [address] BUN/CRE Normal 10-20 [facility] Comment on above: Result Comment: Canc elled via OM: MD Ordered Performed By: #### L 100.0100, L500.2500 ####[facility] [address] [place], [address] Result Comment: PT T RANSFERRED TO DIFFERENT HOSPITAL PER DCORPORAL,RN Performed By: #### L 500.4050 ####[facility] [address] [place], [address] Calcium Normal 7.6-11.0 [facility] Comment on above: Result Comment: Canc elled via OM: MD Ordered Performed By: #### L 100.0100, L500.2500 ####[facility] [address] [place], [address] Result Comment: PT T RANSFERRED TO DIFFERENT HOSPITAL PER DCOR[facility]AL,RN Performed By: #### L 500.4050 ####[facility] [address] [place], [address] CL Normal 98-108 [facility] Comment on above: Result Comment: Canc elled via OM: MD Ordered Performed By: #### L 100.0100, L500.2500 ####[facility] [address] [place], [address] Result Comment: PT T RANSFERRED TO DIFFERENT HOSPITAL PER DCOR[facility]AL,RN Performed By: #### L 500.4050 ####[facility] [address] [place], [address] CO2 Normal 21.0-32.0 [facility] Comment on above: Result Comment: Canc elled via OM: MD Ordered Performed By: #### L 100.0100, L500.2500 ####[facility] [address] [place], [address] Result Comment: PT T RANSFERRED TO DIFFERENT HOSPITAL PER NEORPORAL,RN Performed By: #### L 500.4050 ####[facility] [address] [place], [address] CREAT,SERUM Normal 0.70-1.20 [facility] Comment on above: Result Comment: Canc elled via OM: MD Ordered Performed By: #### L 100.0100, L500.2500 ####[facility] [address] [place], [address] Result Comment: PT T RANSFERRED TO DIFFERENT HOSPITAL PER [facility],RN Performed By: #### L 500.4050 ####[facility] [address] [place], [address] eGFR Normal >60 [facility] Comment on above: Result Comment: Canc elled via OM: MD Ordered Performed By: #### L 100.0100, L500.2500 ####[facility] [address] [place], [address] Result Comment: PT T RANSFERRED TO DIFFERENT HOSPITAL PER [facility],RN Performed By: #### L 500.4050 ####[facility] [address] [place], [address] GAP Normal 5-15 [facility] Comment on above: Result Comment: Canc elled via OM: MD Ordered Performed By: #### L 100.0100, L500.2500 ####[facility] [address] [place], [address] Result Comment: PT T RANSFERRED TO DIFFERENT HOSPITAL PER NEORPORAL,RN Performed By: #### L 500.4050 ####[facility] [address] [place], [address] GLU Normal 70-99 [facility] Comment on above: Result Comment: Canc elled via OM: MD Ordered Performed By: #### L 100.0100, L500.2500 ####[facility] [address] [place], [address] Result Comment: PT T RANSFERRED TO DIFFERENT HOSPITAL PER [facility],RN Performed By: #### L 500.4050 ####[facility] [address] [place], [address] Potassium Normal 3.3-5.1 [facility] Comment on above: Result Comment: Canc elled via OM: MD Ordered Performed By: #### L 100.0100, L500.2500 ####[facility] [address] [place], [address] Result Comment: PT T RANSFERRED TO DIFFERENT HOSPITAL PER NEORPORAL,RN Performed By: #### L 500.4050 ####[facility] [address] [place], [address] Basic Metabolic Profile (BMP) Normal 133-145 [facility] Comment on above: Result Comment: Canc elled via OM: MD Ordered Performed By: #### L 100.0100, L500.2500 ####[facility] [address] [place], [address] Result Comment: PT T RANSFERRED TO DIFFERENT HOSPITAL PER DCORPORAL,RN Performed By: #### L 500.4050 ####[facility] [address] [place], [address] Basic metabolic 2000 panelon 11-11-2024 Anion gap [Moles/Vol] 12 mmol/L Normal 8-15 [facility] Comment on above: Order Comment: Speci men Type: BLOOD SPECIMENOrdering Facility: [facility] Address: [address] [place] [address] Performed By: #### 2 276-4, 11014-5, 21775-2, 84162-4, 2777-1, 74056-3 ####[facility] LABCLIA [id number] [place] [address] [place] Calcium [Mass/Vol] 9.1 mg/dL Normal 8.5-10.2 [facility] Comment on above: Order Comment: Speci men Type: BLOOD SPECIMENOrdering Facility: [facility] Address: [address] [place] [address] Performed By: #### 2 276-4, 20212-0, 56664-4, 66627-5, 7-1, ####[facility] LABIA [id number] [place] [address] [place] Chloride [Moles/Vol] 97 mmol/L Low 98-107 [facility] Comment on above: Order Comment: Speci men Type: BLOOD SPECIMENOrdering Facility: [facility] Address: [address] [place] [address] Performed By: #### 2 276-4, 16854-9, 52202-4, 67388-6, 2776-1, 59499-9 ####[facility] LABIA [id number] [place] [id number] [place] CO2 [Moles/Vol] 14 mmol/L Low 22-30 [facility] Comment on above: Order Comment: Speci men Type: BLOOD SPECIMENOrdering Facility: [facility] Address: [address] [place] [address] Performed By: #### 2 276-4, 67201-0, 32596-1, 29469-8, 2777-1, 07500-0 ####[facility] LABIA [id number] [address] [address] [place] Creatinine [Mass/Vol] 1.35 mg/dL High 0.73-1.22 [facility] Comment on above: Order Comment: Speci james Type: BLOOD SPECIMENOrdering Facility: [facility] Address: [address] [place] [address] Performed By: #### 2 276-4, 16534-2, 68171-8, 03981-2, 2776-1, ####[facility] [id number] [address] [address] [place] Creatinine and Glomerular filtration rate.predicted panel (S/P/Bld) 61 mL/min/1.73m??? Normal >=60 [facility] Comment on above: Order Comment: Ezekiel ramirez Type: BLOOD SPECIMENOrdering Facility: [facility] Address: [address] [place] [address] Result Comment: Patrci mated Glomerular Filtration Rate (eGFR) is calculated [...] actual GFR. Performed By: #### 2 276-4, 28938-7, 92931-4, 85964-3, 2776-, ####[facility] LABIA [id number] [address] [address] [place] Glucose [Mass/Vol] 292 mg/dL High 74-99 [facility] Comment on above: Order Comment: Meggani men Type: BLOOD SPECIMENOrdering Facility: [facility] Address: [address] [place] [address] Result Comment: The [place] [employer] (ADA) provides guidance for cutoff [...] Standards of Medical Care in Diabetes 2016, [place] [employer]. Diabetes Care. 2016.39(Suppl 1). Performed By: #### 2 276-4, 27233-0, 68239-4, 22558-3, 2777-1, 28745-3 ####[facility] LABIA [id number] [place] [id number] [place] Potassium [Moles/Vol] 3.6 mmol/L Low 3.7-5.1 [facility] Comment on above: Order Comment: Speci men Type: BLOOD SPECIMENOrdering Facility: [facility] Address: [address] [place] [address] Performed By: #### 2 276-4, 63746-9, 33232-6, 14651-2, 2776-1, ####[facility] [id number] [place] [id number] [place] Sodium [Moles/Vol] 123 mmol/L Low 136-144 [facility] Comment on above: Order Comment: Speci men Type: BLOOD SPECIMENOrdering Facility: [facility] Address: [address] [place] [address] Performed By: #### 2 276-4, 09497-1, 96070-5, 89798-8, 7-1, 65085-5 ####[facility] LABIA [id number] [place] [id number] [place] Urea nitrogen [Mass/Vol] 22 mg/dL Normal 9-24 [facility] Comment on above: Order Comment: Speci men Type: BLOOD SPECIMENOrdering Facility: [facility] Address: [address] [place] [address] Performed By: #### 2 276-4, 73490-6, 50305-6, 04303-4, 2777-1, 37659-1 ####[facility] LABCLIA [id number] [address] CARDIOLIPIN IGG ABSon 2024 Cardiolipin IgG IA Qn (S) <9.0 Normal <15.0 [facility] Comment on above: Order Comment: Speci men Type: BLOOD SPECIMENOrdering Facility: [facility] Address: [address] [place] [address] Result Comment: <15 GPL [id number] GPL Indeterminate>20 GPL PositiveThe following results were obtained with the Inova QUANTA Lite TEZ IgG III ANDERS. Cardiolipin IgG values obtained with the different manufacturers' assay methods may not be used interchangeably. The magnitude of the reported IgG levels cannot be correlated to an endpoint titer. Performed By: #### 5 076-5KATHI CARDIM ####[facility] LABIA [id number] [address] CARDIOLIPIN IGM ABSon 2024 Cardiolipin IgM IA Qn (S) <9.0 Normal <12.5 [facility] Comment on above: Order Comment: Speci men Type: BLOOD SPECIMENOrdering Facility: [facility] Address: [address] [place] [address] Result Comment: <12. 5 MPL Vpwovoiv46.5-20 MPL Indeterminate>20 MPL PositiveThe following results were obtained with the Inova QUANTA Lite TEZ IgM III ANDERS. Cardiolipin IgM values obtained with the different manufacturers' assay methods may not be used interchangeably. The magnitude of the reported IgM levels cannot be correlated to an endpoint titer.??? Performed By: #### 5 076-5KATHI CARDIM ####[facility] LABCLIA [id number] [place] [id number] [place] CASE MANAGEMon 11-11-2024 CASE MANAGEM Normal [facility] CBC W Auto Differential pane l (Bld)on 11-11-2024 Basophils (Bld) [#/Vol] 0.04 10*3/uL Normal <0.11 [facility] Comment on above: Order Comment: Speci men Type: BLOOD SPECIMENOrdering Facility: [facility] Address: [address] [place] [address] Performed By: #### I PFR, 56478-7, 37408-3 ####[facility] LABCLIA [id number] [place] [address] [place] Basophils/100 WBC (Bld) 0.4 % Normal [facility] Comment on above: Order Comment: Speci men Type: BLOOD SPECIMENOrdering Facility: [facility] Address: [address] [place] [address] Performed By: #### I PFR, 14313-3, 05329-5 ####[facility] LABCLIA [id number] [place] [address] [place] Differential cell count method Nom (Bld) Auto Normal [facility] Comment on above: Order Comment: Speci men Type: BLOOD SPECIMENOrdering Facility: [facility] Address: [address] [place] [address] Performed By: #### I PFR, 12739-9, 88974-8 ####[facility] LABCLIA [id number] [place] [address] [place] Eosinophils (Bld) [#/Vol] 0.35 10*3/uL Normal <0.46 [facility] Comment on above: Order Comment: Speci men Type: BLOOD SPECIMENOrdering Facility: [facility] Address: [address] [place] [address] Performed By: #### I PFR, 18586-2, 57965-6 ####[facility] LABCLIA [id number] [place] [address] [place] Eosinophils/100 WBC (Bld) 3.4 % Normal [facility] Comment on above: Order Comment: Speci men Type: BLOOD SPECIMENOrdering Facility: [facility] Address: [address] [place] [address] Performed By: #### I PFR, 40076-6, 10772-1 ####[facility] LABCLIA [id number] [place] [address] [place] Erythrocyte distribution width (RBC) [Ratio] 17.4 % High 11.5-15.0 [facility] Comment on above: Order Comment: Speci men Type: BLOOD SPECIMENOrdering Facility: [facility] Address: [address] [place] [address] Performed By: #### I PFR, 91859-2, ####[facility] LABCLIA [id number] [address] [place] Hematocrit (Bld) [Volume fraction] 24.6 % Low 39.0-51.0 [facility] Comment on above: Order Comment: Speci men Type: BLOOD SPECIMENOrdering Facility: [facility] Address: [address] [place] [address] Performed By: #### I PFR, 80777-7, 30061-1 ####[facility] LABCLIA [id number] [place] [address] [place] Hemoglobin (Bld) [Mass/Vol] 8.4 g/dL Low 13.0-17.0 [facility] Comment on above: Order Comment: Speci men Type: BLOOD SPECIMENOrdering Facility: [facility] Address: [address] [place] [address] Performed By: #### I PFR, 32867-5, 89465-5 ####[facility] LABCLIA [id number] [place] [id number] [place] Immature granulocytes (Bld) [#/Vol] 0.08 10*3/uL Normal <0.10 [facility] Comment on above: Order Comment: Speci men Type: BLOOD SPECIMENOrdering Facility: [facility] Address: [address] [place] [address] Performed By: #### I PFR, 07607-9, ####[facility] LABCLIA [id number] [place] [address] [place] Immature granulocytes/100 WBC (Bld) 0.8 % Normal [facility] Comment on above: Order Comment: Speci men Type: BLOOD SPECIMENOrdering Facility: [facility] Address: [address] [place] [address] Performed By: #### I PFR, 80781-5, ####[facility] LABCLIA [id number] [place] [address] [place] Lymphocytes (Bld) [#/Vol] 0.99 10*3/uL Low 1.00-4.00 [facility] Comment on above: Order Comment: Speci men Type: BLOOD SPECIMENOrdering Facility: [facility] Address: [address] [place] [address] Performed By: #### I PFR, 35036-1, ####[facility] LABCLIA [id number] [place] [address] [place] Lymphocytes/100 WBC (Bld) 9.5 % Normal [facility] Comment on above: Order Comment: Speci men Type: BLOOD SPECIMENOrdering Facility: [facility] Address: [address] [place] [address] Performed By: #### I PFR, 90110-4, ####[facility] LABCLIA [id number] [place] [id number] [place] MCH (RBC) [Entitic mass] 31.9 pg Normal 26.0-34.0 [facility] Comment on above: Order Comment: Speci men Type: BLOOD SPECIMENOrdering Facility: [facility] Address: [address] [place], [place] [address] Performed By: #### I PFR, 62034-4, 08192-7 ####[facility] LABCLIA [id number] [place] [id number] [place] MCHC (RBC) [Mass/Vol] 34.1 g/dL Normal 30.5-36.0 [facility] Comment on above: Order Comment: Speci men Type: BLOOD SPECIMENOrdering Facility: [facility] Address: [address] [place] [address] Performed By: #### I PFR, 99117-4, 56635-9 ####[facility] LABCLIA [id number] [place] [address] [place] MCV (RBC) [Entitic vol] 93.5 fL Normal 80.0-100.0 [facility] Comment on above: Order Comment: Speci men Type: BLOOD SPECIMENOrdering Facility: [facility] Address: [address] [place] [address] Performed By: #### I PFR, 88348-6, ####[facility] LABCLIA [id number] [place] [address] [place] Monocytes (Bld) [#/Vol] 0.97 10*3/uL High <0.87 [facility] Comment on above: Order Comment: Speci men Type: BLOOD SPECIMENOrdering Facility: [facility] Address: [address] [place], [place] [address] Performed By: #### I PFR, 98169-3, 21805-6 ####[facility] LABCLIA [id number] [place] [address] [place] Monocytes/100 WBC (Bld) 9.3 % Normal [facility] Comment on above: Order Comment: Speci men Type: BLOOD SPECIMENOrdering Facility: [facility] Address: [address] [place] [address] Performed By: #### I PFR, 39941-3, 02203-1 ####[facility] LABIA [id number] [place] [address] [place] Neutrophils (Bld) [#/Vol] 8.00 10*3/uL High 1.45-7.50 [facility] Comment on above: Order Comment: Speci men Type: BLOOD SPECIMENOrdering Facility: [facility] Address: [address] [place] [address] Performed By: #### I PFR, 37558-5, 45809-8 ####[facility] LABIA [id number] [place] [address] [place] Neutrophils/100 WBC (Bld) 76.6 % Normal [facility] Comment on above: Order Comment: Speci men Type: BLOOD SPECIMENOrdering Facility: [facility] Address: [address] [place] [address] Performed By: #### I PFR, 41573-8, 82983-9 ####[facility] LABIA [id number] [place] [address] [place] Nucleated RBC (Bld) [#/Vol] 10*3/uL Normal <0.01 [facility] Comment on above: Order Comment: Speci men Type: BLOOD SPECIMENOrdering Facility: [facility] Address: [address] [place] [address] Performed By: #### I PFR, 90712-3, 69064-7 ####[facility] LABIA [id number] [place] [id number] [place] Nucleated RBC/100 WBC (Bld) [Ratio] 0.0 /100 WBC Normal [facility] Comment on above: Order Comment: Speci men Type: BLOOD SPECIMENOrdering Facility: [facility] Address: [address] [place] [address] Performed By: #### I PFR, 47392-1, 98988-5 ####[facility] LABCLIA [id number] [address] [address] [place] Platelet mean volume (Bld) [Entitic vol] 11.5 fL Normal 9.0-12.7 [facility] Comment on above: Order Comment: Speci men Type: BLOOD SPECIMENOrdering Facility: [facility] Address: [address] [place] [address] Performed By: #### I PFR, 68061-8, 07194-2 ####[facility] LABCLIA [id number] [address] [address] [place] Platelets (Bld) [#/Vol] 43 10*3/uL Low 150-400 [facility] Comment on above: Order Comment: Speci men Type: BLOOD SPECIMENOrdering Facility: [facility] Address: [address] [place] [address] Performed By: #### I PFR, 15161-8, 56831-9 ####[facility] LABCLIA [id number] [place] [id number] [place] RBC (Bld) [#/Vol] 2.63 10*6/uL Low 4.20-6.00 [facility] Comment on above: Order Comment: Speci men Type: BLOOD SPECIMENOrdering Facility: [facility] Address: [address] [place], [place] [address] Performed By: #### I PFR, 36617-4, 96298-6 ####[facility] LABCLIA [id number] [address] [address] [place] WBC (Bld) [#/Vol] 10.43 10*3/uL Normal 3.70-11.00 [facility] Comment on above: Order Comment: Speci men Type: BLOOD SPECIMENOrdering Facility: [facility] Address: [address] [place] [address] Performed By: #### I PFR, 30927-2, 09989-0 ####[facility] LABCLIA [id number] [address], [facility] [place] Basophils (Bld) [#/Vol] 0.06 10*3/uL Normal <0.11 [facility] Comment on above: Order Comment: Speci men Type: BLOOD SPECIMENOrdering Facility: [facility] Address: [address] [place] [address] Performed By: #### 5 5454-3, 70576-7 ####[facility] LABCLIA [id number] [place] [id number] [place] Basophils/100 WBC (Bld) 0.4 % Normal [facility] Comment on above: Order Comment: Speci men Type: BLOOD SPECIMENOrdering Facility: [facility] Address: [address] [place] [address] Performed By: #### 5 5454-3, 84918-9 ####[facility] LABCLIA [id number] [address], [place] [address] [place] Differential cell count method Nom (Bld) Auto Normal [facility] Comment on above: Order Comment: Speci men Type: BLOOD SPECIMENOrdering Facility: [facility] Address: [address] [place] [address] Performed By: #### 5 5454-3, 10563-3 ####[facility] LABCLIA [id number] [place] [id number] [place] Eosinophils (Bld) [#/Vol] 0.40 10*3/uL Normal <0.46 [facility] Comment on above: Order Comment: Speci men Type: BLOOD SPECIMENOrdering Facility: [facility] Address: [address] [place] [address] Performed By: #### 5 5454-3, 00868-4 ####[facility] LABCLIA [id number] [place] [address] [place] Eosinophils/100 WBC (Bld) 2.5 % Normal [facility] Comment on above: Order Comment: Speci men Type: BLOOD SPECIMENOrdering Facility: [facility] Address: [address] [place] [address] Performed By: #### 5 5454-3, 97675-7 ####[facility] LABCLIA [id number] [place] [address] [place] Erythrocyte distribution width (RBC) [Ratio] 18.0 % High 11.5-15.0 [facility] Comment on above: Order Comment: Speci men Type: BLOOD SPECIMENOrdering Facility: [facility] Address: [address] [place] [address] Performed By: #### 5 5454-3, 17276-4 ####[facility] LABCLIA [id number] [place] [address] [place] Hematocrit (Bld) [Volume fraction] 30.4 % Low 39.0-51.0 [facility] Comment on above: Order Comment: Speci men Type: BLOOD SPECIMENOrdering Facility: [facility] Address: [address] [place] [address] Performed By: #### 5 5454-3, 71201-1 ####[facility] LABIA [id number] [place] [address] [place] Hemoglobin (Bld) [Mass/Vol] 10.2 g/dL Low 13.0-17.0 [facility] Comment on above: Order Comment: Speci men Type: BLOOD SPECIMENOrdering Facility: [facility] Address: [address] [place] [address] Performed By: #### 5 5454-3, 91668-5 ####[facility] LABCLIA [id number] [place] [address] [place] Immature granulocytes (Bld) [#/Vol] 0.18 10*3/uL High <0.10 [facility] Comment on above: Order Comment: Speci men Type: BLOOD SPECIMENOrdering Facility: [facility] Address: [address] [place] [address] Performed By: #### 5 5454-3, 10399-1 ####[facility] LABCLIA [id number] [place] [address] [place] Immature granulocytes/100 WBC (Bld) 1.1 % Normal [facility] Comment on above: Order Comment: Speci men Type: BLOOD SPECIMENOrdering Facility: [facility] Address: [address] [place] [address] Performed By: #### 5 5454-3, 40649-0 ####[facility] LABCLIA [id number] [place] [address] [place] Lymphocytes (Bld) [#/Vol] 1.19 10*3/uL Normal 1.00-4.00 [facility] Comment on above: Order Comment: Speci men Type: BLOOD SPECIMENOrdering Facility: [facility] Address: [address] [place] [address] Performed By: #### 5 5454-3, 00944-8 ####[facility] LABCLIA [id number] [place] [address] [place] Lymphocytes/100 WBC (Bld) 7.6 % Normal [facility] Comment on above: Order Comment: Speci men Type: BLOOD SPECIMENOrdering Facility: [facility] Address: [address] [place] [address] Performed By: #### 5 5454-3, 92087-1 ####[facility] LABCLIA [id number] [place] [address] [place] MCH (RBC) [Entitic mass] 31.3 pg Normal 26.0-34.0 [facility] Comment on above: Order Comment: Speci men Type: BLOOD SPECIMENOrdering Facility: [facility] Address: [address] [place] [address] Performed By: #### 5 5454-3, 10179-9 ####[facility] LABCLIA [id number] [address] [address] [place] MCHC (RBC) [Mass/Vol] 33.6 g/dL Normal 30.5-36.0 [facility] Comment on above: Order Comment: Speci men Type: BLOOD SPECIMENOrdering Facility: [facility] Address: [address] [place] [address] Performed By: #### 5 5454-3, 01030-5 ####[facility] LABCLIA [id number] [place] [address] [place] MCV (RBC) [Entitic vol] 93.3 fL Normal 80.0-100.0 [facility] Comment on above: Order Comment: Speci men Type: BLOOD SPECIMENOrdering Facility: [facility] Address: [address] [place] [address] Performed By: #### 5 5454-3, 62815-4 ####[facility] LABIA [id number] [place] [address] [place] Monocytes (Bld) [#/Vol] 1.36 10*3/uL High <0.87 [facility] Comment on above: Order Comment: Speci men Type: BLOOD SPECIMENOrdering Facility: [facility] Address: [address] [place] [address] Performed By: #### 5 5454-3, 59292-5 ####[facility] LABCLIA [id number] [place] [id number] [place] Monocytes/100 WBC (Bld) 8.6 % Normal [facility] Comment on above: Order Comment: Speci men Type: BLOOD SPECIMENOrdering Facility: [facility] Address: [address] [place] [address] Performed By: #### 5 5454-3, 09380-2 ####[facility] LABCLIA [id number] [place] [address] [place] Neutrophils (Bld) [#/Vol] 12.55 10*3/uL High 1.45-7.50 [facility] Comment on above: Order Comment: Speci men Type: BLOOD SPECIMENOrdering Facility: [facility] Address: [address] [place] [address] Performed By: #### 5 5454-3, 40679-9 ####[facility] LABIA [id number] [place] [address] [place] Neutrophils/100 WBC (Bld) 79.8 % Normal [facility] Comment on above: Order Comment: Speci men Type: BLOOD SPECIMENOrdering Facility: [facility] Address: [address] [place] [address] Performed By: #### 5 5454-3, 17855-2 ####[facility] [id number] [place] [address] [place] Nucleated RBC (Bld) [#/Vol] 10*3/uL Normal <0.01 [facility] Comment on above: Order Comment: Speci men Type: BLOOD SPECIMENOrdering Facility: [facility] Address: [address] [place] [address] Performed By: #### 5 5454-3, 04861-1 ####[facility] LABIA [id number] [place] [address] [place] Nucleated RBC/100 WBC (Bld) [Ratio] 0.0 /100 WBC Normal [facility] Comment on above: Order Comment: Speci men Type: BLOOD SPECIMENOrdering Facility: [facility] Address: [address] [place] [address] Performed By: #### 5 5454-3, 17047-2 ####[facility] LABIA [id number] [place] [address] [place] Platelet mean volume (Bld) [Entitic vol] 12.1 fL Normal 9.0-12.7 [facility] Comment on above: Order Comment: Speci men Type: BLOOD SPECIMENOrdering Facility: [facility] Address: [address] [place] [address] Performed By: #### 5 5454-3, 04936-0 ####[facility] LABCLIA [id number] [place] [address] [place] Platelets (Bld) [#/Vol] 52 10*3/uL Low 150-400 [facility] Comment on above: Order Comment: Speci men Type: BLOOD SPECIMENOrdering Facility: [facility] Address: [address] [place] [address] Result Comment: Resu lts checked and verified.No clot detected. Performed By: #### 5 5454-3, 08782-1 ####[facility] LABCLIA [id number] [place] [address] [place] RBC (Bld) [#/Vol] 3.26 10*6/uL Low 4.20-6.00 [facility] Comment on above: Order Comment: Speci men Type: BLOOD SPECIMENOrdering Facility: [facility] Address: [address] [place] [address] Performed By: #### 5 5454-3, 16404-7 ####[facility] LABCLIA [id number] [place] [address] [place] WBC (Bld) [#/Vol] 15.74 10*3/uL High 3.70-11.00 [facility] Comment on above: Order Comment: Speci men Type: BLOOD SPECIMENOrdering Facility: [facility] Address: [address] [place] [address] Performed By: #### 5 5454-3, 48749-6 ####[facility] LABCLIA [id number] [place] [id number] [place] CBC W/Diff, Automatedon 04-1 0-2025 Absolute Neut Normal 2.0-7.7 [facility] Comment on above: Result Comment: PT T RANSFERRED TO DIFFERENT HOSPITAL PER [facility],RN Performed By: #### L 100.0100, L500.2500 ####[facility] [address] [place], [address] HCT Normal 40-54 [facility] Comment on above: Result Comment: PT T [facility] Performed By: #### L 100.0100, L500.2500 ####[facility] [address] [place], [address] HGB Normal 13.0-16.5 [facility] Comment on above: Result Comment: PT T RANSFERRED TO DIFFERENT HOSPITAL PER [facility],RN Performed By: #### L 100.0100, L500.2500 ####[facility] [address] [place], [address] MCH Normal 27.0-32.0 [facility] Comment on above: Result Comment: PT T RANSFERRED TO DIFFERENT HOSPITAL PER [facility],RN Performed By: #### L 100.0100, L500.2500 ####[facility] [address] [place], [address] MCHC Normal 32-36 [facility] Comment on above: Result Comment: PT T RAN[facility]ERRED TO [facility] Performed By: #### L 100.0100, L500.2500 ####[facility] [address] [place], [address] MCV Normal 80-94 [facility] Comment on above: Result Comment: PT T RANSFERRED TO DIFFERENT HOSPITAL PER [facility],RN Performed By: #### L 100.0100, L500.2500 ####[facility] [address] [place], [address] NEUT% Normal 47-70 [facility] Comment on above: Result Comment: PT T RANSFERRED TO DIFFERENT H[facility]PITAL PER [facility],RN Performed By: #### L 100.0100, L500.2500 ####[facility] [address] [place], [address] PLT Normal 150-450 [facility] Comment on above: Result Comment: PT T RANSFERRED TO DIFFERENT HOSPITAL PER [facility],RN Performed By: #### L 100.0100, L500.2500 ####[facility] [address] [place], [address] RBC Normal 4.6-6.2 [facility] Comment on above: Result Comment: PT T RANSFERRED TO DIFFERENT HOSPITAL PER [facility],RN Performed By: #### L 100.0100, L500.2500 ####[facility] [address] [place], [address] RDW CV Normal 11.6-14.6 [facility] Comment on above: Result Comment: PT T RANSFERRED TO DIFFERENT HOSPITAL PER [facility],RN Performed By: #### L 100.0100, L500.2500 ####[facility] [address] [place], [address] RDW SD Normal 35.1-43.9 [facility] Comment on above: Result Comment: PT T RANSFERRED TO DIFFERENT HOSPITAL PER [facility],RN Performed By: #### L 100.0100, L500.2500 ####[facility] [address] [place], [address] WBC Normal 4.4-11.0 [facility] Comment on above: Result Comment: PT T RANSFERRED TO DIFFERENT HOSPITAL PER [facility],RN Performed By: #### L 100.0100, L500.2500 ####[facility] [address] [place], [address] [facility] Carcinoembryonic Ag [Mass/Vol] 13.0 ng/mL High <=2.9 [facility] Comment on above: Order Comment: Speci men Type: BLOOD SPECIMENOrdering Facility: [facility] Address: [address] [place] [address] Result Comment: Carc inoembryonic antigen test is used as an aid in monitoring response to treatment or recurrence in patients with established colorectal, breast, lung, prostatic, pancreatic, and ovarian carcinomas. Clinical correlation is required.The Carcinoembryonic antigen test was performed using the [employer] DXI paramagnetic particle chemiluminescent immunoassay method. Results obtained with different assay methods or kits cannot be used interchangeably. Performed By: #### 2 039-6, 25276-8, 2532-0 ####[facility] LABIA [id number] [place] [address] [place] COAG CORE PANEL BLColby 2024 aPTT Coag (PPP) [Time] 41.3 s High 23.0-32.4 [facility] Comment on above: Order Comment: Speci men Type: BLOOD SPECIMENOrdering Facility: [facility] Address: [address] [place] [address] Performed By: #### C ORPNL ####[facility] [id number] [place] [address] [place] Fibrinogen Coag (PPP) [Mass/Vol] 88 mg/dL Low 200-400 [facility] Comment on above: Order Comment: Speci men Type: BLOOD SPECIMENOrdering Facility: [facility] Address: [address] [place] [address] Result Comment: Samp le checked for clot.Result rechecked. Performed By: #### C ORPNL ####[facility] LABIA [id number] [address] [place] INR Coag (PPP) [Relative time] 2.1 {INR} High 0.9-1.3 [facility] Comment on above: Order Comment: Speci men Type: BLOOD SPECIMENOrdering Facility: [facility] Address: [address] [place] [address] Result Comment: Sarah min K Antagonist (VKA) Therapeutic Range: INR 2 to 3 (Target INR of 2.5)Note: For patients treated with VKA drugs, such as warfarin, the [employer] 2012 Guideline recommends [...] al. Chest 2012, 141:7S-47SNishimura RA, et al. [facility] 2017, 70: 252-289 Performed By: #### C ORPNL ####[facility] [id number] [place] [address] [place] PT Coag (PPP) [Time] 21.8 s High 9.7-13.0 [facility] Comment on above: Order Comment: Ezekiel ramirez Type: BLOOD SPECIMENOrdering Facility: [facility] Address: [address] [place] [address] Performed By: #### C ORPNL ####[facility] [id number] [place] [id number] [place] CONSULTon 11-11-2024 CONSULT Normal [facility] CONSULT Normal [facility] CRP SerPl-mCncon 11-11-2024 CRP [Mass/Vol] 0.5 mg/dL Normal <0.9 [facility] Comment on above: Order Comment: Ezekiel ramirez Type: BLOOD SPECIMENOrdering Facility: [facility] Address: [address] [place] [address] Performed By: #### D ASHLEY, 1986-12 ####[facility] LABCLIA [id number] [place] [address] [place] CYTOLOGY NON-GYNon 5 AP DISCLAIMER Normal [facility] Comment on above: Order Comment: Speci men Type: FLUID SPECIMENOrdering Facility: [facility] Address: [address] [place] [address] Result Comment: Shellie pugh Developed Test (LDT) Disclaimer:Performance characteristics of immunohistochemical, immunofluorescent, and chromogenic in-situ hybridization tests have been determined by the performing laboratory within [facility] Pathology and Laboratory Medicine Department ([facility], [facility], [facility], [facility], [facility], [facility], or [facility]) in a manner consistent with CLIA requirements. One or more of these tests may not have been cleared or approved by the FDA. [facility] is regulated under CLIA as qualified to perform high-complexity testing. These tests are used for clinical purposes. These should not be regarded as investigational or for research. Positive and negative controls stain appropriately. Performed By: #### C YTONON ####[facility] LABCLIA [id number] [place] [address] [place] CASE REPORT Normal [facility] Comment on above: Order Comment: Speci men Type: FLUID SPECIMENOrdering Facility: [facility] Address: [address] [place] [address] Result Comment: [facility] Cytology Report Case: [id number] Provider: Yaritza Juarez, Collected: 11/11/2024 05:14 PM FILTER BED PLACER.CNPOrdering Location: [place] [address] Received: 11/11/2024 08:30 PMPathologist: Sameer Fournier MDSpecimen: Abdomen Performed By: #### C YTONON ####[facility] LABCLIA [id number] [place] [id number] [place] CLINICAL HISTORY paracentesis fluid Normal [facility] Comment on above: Order Comment: Speci men Type: FLUID SPECIMENOrdering Facility: [facility] Address: [address] [place] [address] Performed By: #### C YTONON ####[facility] LABCLIA [id number] [address] [place] FINAL DIAGNOSIS Normal [facility] Comment on above: Order Comment: Speci men Type: FLUID SPECIMENOrdering Facility: [facility] Address: [address] [place] [address] Result Comment: A - Abdomen, Fluid Negative for malignant cells.The following cell blocks were associated with this case:A1\X09\Cell Block, Alcohol Fixed\X09\ at 1034 EDT Performed By: #### C YTONON ####[facility] LABCLIA [id number] [place] [address] [place] FINAL PERFORMING LAB Normal [facility] Comment on above: Order Comment: Speci men Type: FLUID SPECIMENOrdering Facility: [facility] Address: [address] [place] [address] Result Comment: Tech nical component, director of rehabilitative services screening performed at: [facility], [address] [place] [address] CLIA: [id number] interpretation performed at: [facility], [address] [place] [address] CLIA# [id number] Director: Titi Voss MD Performed By: #### C YTONON ####[facility] LABCLIA [id number] [place] [address] [place] GROSS DESCRIPTION A. Abdomen Normal [facility] Comment on above: Order Comment: Speci men Type: FLUID SPECIMENOrdering Facility: [facility] Address: [address] [place] [address] Result Comment: 1450 cc opaque willow fluid . ThinPrep and Cell Block prepared. Performed By: #### C YTONON ####[facility] LABIA [id number] [address] [place] Cancer Ag19-9 SerPl-aCncon 0 11-11-2024 Cancer Ag 19-9 Qn <2.0 Normal <36.0 [facility] Comment on above: Order Comment: Speci men Type: BLOOD SPECIMENOrdering Facility: [facility] Address: [address] [place] [address] Result Comment: [facility] er antigen 19-9 test is used as an aid in monitoring response to treatment or recurrence in patients with established pancreatic, hepatobiliary, or gastrointestinal malignancies. Clinical correlation is required.The CA 19-9 Antigen test was performed using the [employer] DXI paramagnetic particle chemiluminescent immunoassay method. Results obtained with different assay methods or kits cannot be used interchangeably. Performed By: #### 2 039-6, 05442-5, 2532-0 ####[facility] LABIA [id number] [address] Cardiolipin IgA Ser IA-aCnco n 11-11-2024 Cardiolipin IgA IA Qn (S) 9.7 [APL'U] Normal <12.0 [facility] Comment on above: Order Comment: Meggani james Type: BLOOD SPECIMENOrdering Facility: [facility] Address: [address] [place] [address] Result Comment: <12 APL Dnckpwuc15-95 APL Indeterminate>20 APL PositiveThe following results were obtained with the [employer]rol[employer] QUANTA Lite TEZ IgA III ANDERS. Cardiolipin IgA values obtained with the different manufacturers' assay methods may not be used interchangeably. The magnitude of the reported IgA levels cannot be correlated to an endpoint titer. Performed By: #### 5 076-5KATHI CARDIM ####[facility] LABIA [id number] [place] [id number] [place] Comprehensive Metabolic Prof ilon 11-11-2024 ALB Normal 3.5-5.0 [facility] Comment on above: Result Comment: PT T RANSFERRED TO DIFFERENT HOSPITAL PER [place],RN Performed By: #### L 500.4050 ####[facility] [address] [place], [address] ALK PHOS Normal 40-129 [facility] Comment on above: Result Comment: PT T RANSFERRED TO DIFFERENT HOSPITAL PER NEORPORAL,RN Performed By: #### L 500.4050 ####[facility] [address] [place], [address] ALT Normal <=46 [facility] Comment on above: Result Comment: PT T RANSFERRED TO DIFFERENT HOSPITAL PER [facility],RN Performed By: #### L 500.4050 ####[facility] [address] [place], [address] AST Normal <=37 [facility] Comment on above: Result Comment: PT T RANSFERRED TO DIFFERENT HOSPITAL PER NEORPORAL,RN Performed By: #### L 500.4050 ####[facility] [address] [place], [address] T BILI Normal 0.00-1.30 [facility] Comment on above: Result Comment: PT T RANSFERRED TO DIFFERENT HOSPITAL PER NEORPORAL,RN Performed By: #### L 500.4050 ####[facility] [address] [place], [address] T PROT Normal 5.9-8.4 [facility] Comment on above: Result Comment: PT T RANSFERRED TO DIFFERENT HOSPITAL PER NEORPORAL,RN Performed By: #### L 500.4050 ####[facility] [address] [place], [address] DIRECT BILIRUBIN BLOODon Bilirubin.conjugated [Mass/Vol] 1.1 mg/dL High <0.3 [facility] Comment on above: Order Comment: Speci men Type: BLOOD SPECIMENOrdering Facility: [facility] Address: [address] [place] [address] Performed By: #### D ASHLEY, 1986-12 ####[facility] LABIA [id number] [place] [address] [place] ECG COMPLETEon 11-11-2024 ECG COMPLETE Normal [facility] OLQ66eo 11-11-2024 ECG01 Normal [facility] Ferritin SerPl-ncon 2024 Ferritin [Mass/Vol] 82.4 ng/mL Normal 30.3-565.7 [facility] Comment on above: Order Comment: Speci men Type: BLOOD SPECIMENOrdering Facility: [facility] Address: [address] [place] [address] Performed By: #### 2 276-4, 48299-5, 31014-2, 71981-0, 2777-1, 12459-1 ####[facility] [id number] [place] [address] [place] Fibrinogen PPP-ncon 2024 Fibrinogen Coag (PPP) [Mass/Vol] 90 mg/dL Low 200-400 [facility] Comment on above: Order Comment: Speci men Type: BLOOD SPECIMENOrdering Facility: [facility] Address: [address] [place] [address] Result Comment: Samp le checked for clot.Result rechecked. Performed By: #### 3 255-7, 39794-1 ####[facility] LABIA [id number] [place] [address] [place] HISTORY PHYSICALon HISTORY PHYSICAL Normal [facility] HYPERCOAG PANELon 11-11-2024 Activated protein C resistance Coag (PPP) [Time ratio] 2.10 Ratio Normal >1.96 [facility] Comment on above: Order Comment: Speci men Type: BLOOD SPECIMENOrdering Facility: [facility] Address: [address] [place] [address] Performed By: #### L [id number], HCOAG, 6303-2, 91050-1, 16433-8 ####[facility] LABCLIA [id number] [place] [address] [place] Antithrombin actual/normal Chromogenic method (PPP) [Rel catalytic activity/Vol] 30 % Low 84-138 [facility] Comment on above: Order Comment: Speci men Type: BLOOD SPECIMENOrdering Facility: [facility] Address: [address] [place] [address] Performed By: #### L [id number], HCOAG, 6303-2, 09468-4, 05647-0 ####[facility] LABIA [id number] [place] [address] [place] aPTT Coag (Bld) [Time] 47.9 s High 24.0-35.1 [facility] Comment on above: Order Comment: Speci men Type: BLOOD SPECIMENOrdering Facility: [facility] Address: [address] [place] [address] Performed By: #### L [id number], HCOAG, 6303-2, 28321-3, 05563-7 ####[facility] LABIA [id number] [address] [place] aPTT W excess hexagonal phase phospholipid Coag (PPP) [Time] 36.5 seconds Normal 34.0-51.8 [facility] Comment on above: Order Comment: Speci men Type: BLOOD SPECIMENOrdering Facility: [facility] Address: [address] [place] [address] Performed By: #### L [id number], HCOAG, 6303-2, 19830-6, 51805-6 ####[facility] LABCLIA [id number] [place] [address] [place] aPTT-LA w 1:1 PNP Coag (PPP) [Time] 32.5 seconds Normal <33.2 [facility] Comment on above: Order Comment: Speci men Type: BLOOD SPECIMENOrdering Facility: [facility] Address: [address] [place] [address] Result Comment: This test was developed, and its performance characteristics determined by the [facility] Department of Pathology and Laboratory Medicine. It has not been cleared or approved by the FDA. The [facility] Department of Pathology and Laboratory Medicine is regulated under CLIA as qualified to perform high-complexity testing. This test is used for clinical purposes. It should not be regarded as investigational or for research. Performed By: #### L [id number], HCOAG, 6303-2, 25475-3, 89664-0 ####[facility] LABCLIA [id number] [place] [address] [place] Coagulation factor VIII activity actual/normal Coag (PPP) [Relative time] 332 % High 50-173 [facility] Comment on above: Order Comment: Speci men Type: BLOOD SPECIMENOrdering Facility: [facility] Address: [address] [place] [address] Performed By: #### L [id number], HCOAG, 6303-2, 79899-3, 74420-0 ####[facility] LABIA [id number] [place] [address] [place] Coagulation factor X activated act Coag Qn (PPP) <0.10 Normal <0.10 [facility] Comment on above: Order Comment: Speci men Type: BLOOD SPECIMENOrdering Facility: [facility] Address: [address] [place] [address] Result Comment: This test was developed, and its performance characteristics determined by the [facility] Department of Pathology and Laboratory Medicine. It has not been cleared or approved by the FDA. The [facility] Department of Pathology and Laboratory Medicine is regulated under CLIA as qualified to perform high-complexity testing. This test is used for clinical purposes. It should not be regarded as investigational or for research. Performed By: #### L [id number], HCOAG, 6303-2, 90553-8, 42625-6 ####[facility] LABCLIA [id number] [place] [address] [place] Delta dRVVT Coag (PPP) [Time diff] 2.2 delta seconds Normal <7.1 [facility] Comment on above: Order Comment: Speci men Type: BLOOD SPECIMENOrdering Facility: [facility] Address: [address] [place] [address] Performed By: #### L [id number], HCOAG, 6303-2, 41636-2, 24610-9 ####[facility] LABCLIA [id number] [place] [address] [place] dRVVT W excess hexagonal phase phospholipid actual/normal Coag (PPP) [Relative time] 34.3 seconds Normal 34.2-47.9 [facility] Comment on above: Order Comment: Speci men Type: BLOOD SPECIMENOrdering Facility: [facility] Address: [address] [place] [address] Performed By: #### L [id number], HCOAG, 6303-2, 43490-0, 72623-3 ####[facility] LABCLIA [id number] [place] [address] [place] Protein C actual/normal Coag (PPP) [Relative time] 24 % Low 76-147 [facility] Comment on above: Order Comment: Speci men Type: BLOOD SPECIMENOrdering Facility: [facility] Address: [address] [place] [address] Performed By: #### L [id number], HCOAG, 6303-2, 45411-7, 74349-9 ####[facility] LABCLIA [id number] [place] [address] [place] Protein S actual/normal Coag (PPP) [Relative time] 28 % Low 59-152 [facility] Comment on above: Order Comment: Speci men Type: BLOOD SPECIMENOrdering Facility: [facility] Address: [address] [place] [address] Performed By: #### L [id number], HCOAG, 6303-2, 20082-6, 95216-6 ####[facility] LABIA [id number] [place] [address] [place] Protein S Free Ag actual/normal IA (PPP) [Relative mass conc] 45 % Low 55-148 [facility] Comment on above: Order Comment: Speci men Type: BLOOD SPECIMENOrdering Facility: [facility] Address: [address] [place] [address] Performed By: #### L [id number], HCOAG, 6303-2, 80368-2, 43699-8 ####[facility] [id number] [place] [address] [place] Thrombin time Coag (PPP) [Time] 20.0 seconds High <18.6 [facility] Comment on above: Order Comment: Speci men Type: BLOOD SPECIMENOrdering Facility: [facility] Address: [address] [place] [address] Performed By: #### L [id number], HCOAG, 6303-2, 90545-7, 78428-4 ####[facility] [id number] [place] [address] [place] HYPERCOAG PANEL INTERPon INTERPRETATION (HYPERCOAG) Normal [facility] Comment on above: Order Comment: Speci men Type: BLOOD SPECIMENOrdering Facility: [facility] Address: [address] [place] [address] Result Comment: Abno rmal - see comment [...] negative for the c.*97G>A variant (legacy name 99137L>A) in the 3' untranslated region of the [...] phase phospholipid neutralization. Performed By: #### L [id number], HCOAG, 6303-2, 34933-2, 68004-1 ####[facility] LABCLIA [id number] [address] [address] [place] Pathologist name Reviewed by Julia Howell M.D., Ph.D Normal [facility] Comment on above: Order Comment: Speci men Type: BLOOD SPECIMENOrdering Facility: [facility] Address: [address] [place] [address] Performed By: #### L [id number], HCOAG, 6303-2, 63982-7, 28040-5 ####[facility] LABIA [id number] [place] [address] [place] Haptoglob SerPl-mCncon 11-11 Haptoglobin [Mass/Vol] 15 mg/dL Low 31-238 Cl [facility] Comment on above: Order Comment: Ezekiel ramirez Type: BLOOD SPECIMENOrdering Facility: [facility] Address: [address] [place] [address] Performed By: #### 2 4362-6, 4542-7 ####[facility] LABIA [id number] [place] [address] [place] HbA1c (Bld)on 11-11-2024 Average glucose Estimated from glycated hemoglobin (Bld) [Mass/Vol] 154 mg/dL Normal [facility] Comment on above: Order Comment: Ezekiel ramirez Type: BLOOD SPECIMENOrdering Facility: [facility] Address: [address] [place] [address] Result Comment: eAG: (Estimated average glucose) is a calculated value from HgbA1c and is quality assurance representative of the average blood glucose level in the last 2-3 month period. Performed By: #### 5 5454-3, 99873-7 ####[facility] LABCLIA [id number] [address] [address] [place] HbA1c (Bld) [Mass fraction] 7.0 % High 4.3-5.6 [facility] Comment on above: Order Comment: Speci men Type: BLOOD SPECIMENOrdering Facility: [facility] Address: [address] [place] [address] Result Comment: Amer [place] Diabetes Association guidelines indicate that patients with HgbA1c in the range 5.7-6.4% are at increased risk for development of diabetes, and intervention by lifestyle modification may be beneficial. HgbA1c greater or equal to 6.5% is considered diagnostic of diabetes. Performed By: #### 5 5454-3, 81039-6 ####[facility] LABCLIA [id number] [place] [address] [place] Hepatic function 2000 panelo n 11-11-2024 Albumin [Mass/Vol] 2.1 g/dL Low 3.9-4.9 [facility] Comment on above: Order Comment: Speci men Type: BLOOD SPECIMENOrdering Facility: [facility] Address: [address] [place] [address] Performed By: #### 2 276-4, 77855-7, 14971-4, 40973-4, 277-1, 84960-4 ####[facility] LABIA [id number] [place] [address] [place] ALP [Catalytic activity/Vol] 310 U/L High 38-113 [facility] Comment on above: Order Comment: Speci men Type: BLOOD SPECIMENOrdering Facility: [facility] Address: [address] [place] [address] Performed By: #### 2 276-4, 11706-5, 17641-8, 92344-7, 2776-1, 29261-1 ####[facility] LABIA [id number] [place] [address] [place] ALT [Catalytic activity/Vol] 31 U/L Normal 10-54 [facility] Comment on above: Order Comment: Speci men Type: BLOOD SPECIMENOrdering Facility: [facility] Address: [address] [place] [address] Performed By: #### 2 276-4, 75357-3, 68477-9, 11969-4, 2777-1, 15303-2 ####[facility] LABCLIA [id number] [place] [address] [place] AST [Catalytic activity/Vol] 44 U/L High 14-40 [facility] Comment on above: Order Comment: Speci men Type: BLOOD SPECIMENOrdering Facility: [facility] Address: [address] [place] [address] Performed By: #### 2 276-4, 49146-2, 18356-4, 68915-7, 2777-1, 69329-9 ####[facility] LABCLIA [id number] [place] [address] [place] Bilirubin [Mass/Vol] 1.6 mg/dL High 0.2-1.3 [facility] Comment on above: Order Comment: Speci men Type: BLOOD SPECIMENOrdering Facility: [facility] Address: [address] [place] [address] Performed By: #### 2 276-4, 70379-6, 99454-0, 41972-8, 2777-1, 07164-6 ####[facility] LABCLIA [id number] [place] [address] [place] Bilirubin.conjugated [Mass/Vol] 1.0 mg/dL High <0.3 [facility] Comment on above: Order Comment: Speci men Type: BLOOD SPECIMENOrdering Facility: [facility] Address: [address] [place] [address] Performed By: #### 2 276-4, 20305-6, 50656-1, 22324-2, 2777-1, 20960-8 ####[facility] LABCLIA [id number] [address] [place] [address] [place] Protein [Mass/Vol] 5.3 g/dL Low 6.3-8.0 [facility] Comment on above: Order Comment: Speci men Type: BLOOD SPECIMENOrdering Facility: [facility] Address: [address] [place] [address] Performed By: #### 2 276-4, 12700-9, 35861-9, 69330-0, 7-1, 20748-2 ####[facility] LABCLIA [id number] [place] [address] [place] IMMATURE PLATELET FRACTIONon 11-11-2024 Platelets reticulated/100 platelets Auto (Bld) 7.7 % High 0.9-7.2 [facility] Comment on above: Order Comment: Speci men Type: BLOOD SPECIMENOrdering Facility: [facility] Address: [address] [place] [address] Performed By: #### I PFR, 03720-9, 82687-6 ####[facility] LABCLIA [id number] [place] [address] [place] Iron and Iron binding capaci ty panelon 11-11-2024 Iron [Mass/Vol] 34 ug/dL Low 41-186 [facility] Comment on above: Order Comment: Speci men Type: BLOOD SPECIMENOrdering Facility: [facility] Address: [address] [place] [address] Performed By: #### 2 276-4, 77072-7, 07936-7, 46167-7, 7-1, 52092-2 ####[facility] LABIA [id number] [place] [id number] [place] Iron binding capacity [Mass/Vol] 180 ug/dL Low 232-386 [facility] Comment on above: Order Comment: Speci men Type: BLOOD SPECIMENOrdering Facility: [facility] Address: [address] [place] [address] Performed By: #### 2 276-4, 24290-5, 13305-8, 38782-3, 2777-1, 57288-7 ####[facility] LABCLIA [id number] [place] [address] [place] Iron/TIBC [Molar ratio] 18.9 % Normal 15.0-57.0 [facility] Comment on above: Order Comment: Speci men Type: BLOOD SPECIMENOrdering Facility: [facility] Address: [address] [place] [address] Performed By: #### 2 276-4, 99881-2, 31515-6, 77895-2, 2777-1, 96289-6 ####[facility] LABIA [id number] [place] [address] [place] [facility] LDH [Catalytic activity/Vol] 321 U/L High 135-225 [facility] Comment on above: Order Comment: Speci men Type: BLOOD SPECIMENOrdering Facility: [facility] Address: [address] [place] [address] Performed By: #### 2 039-6, 99313-0, 2532-0 ####[facility] LABIA [id number] [place] [address] [place] Lipase [facility]ld[facility] 11[facility]11-2024 Lipase (Body fld) [Catalytic activity/Vol] 29 U/L Normal See Comment [facility] Comment on above: Order Comment: Speci men Type: FLUID SPECIMENOrdering Facility: [facility] Address: [address] [place] [address] Result Comment: Pleu ral fluids: Lipase measurement [...] document C49A. PAULETTE Diaz: Clinical Laboratory Standards [place]: 2007.2. David Guillory. A review of pancreatic cyst fluid analysis in the differential diagnosis of pancreatic cyst lesions. [employer] 2013:0:1-16. Performed By: #### 1 747-5, 1795-4, 34807-2, 2881-1 ####[facility] [id number] [place] [id number] [place] Lupus anticoagulant neutrali zation platelet Coag Ql (PPP)on 11-11-2024 aPTT Coag (Bld) [Time] 56.8 s High 30.2-43.0 [facility] Comment on above: Order Comment: Ezekiel ramirez Type: BLOOD SPECIMENOrdering Facility: [facility] Address: [address] [place] [address] Result Comment: This test was developed, and its performance characteristics determined by the [facility] Department of Pathology and Laboratory Medicine. It has not been cleared or approved by the FDA. The [facility] Department of Pathology and Laboratory Medicine is regulated under CLIA as qualified to perform high-complexity testing. This test is used for clinical purposes. It should not be regarded as investigational or for research. Performed By: #### L [id number], HCOAG, 6303-2, 40713-5, 88438-3 ####[facility] [id number] [place] [id number] [place] aPTT Coag (Bld) [Time] 36.5 s Normal 31.5-38.3 [facility] Comment on above: Order Comment: Ezekiel ramirez Type: BLOOD SPECIMENOrdering Facility: [facility] Address: [address] [place] [address] Result Comment: This test was developed, and its performance characteristics determined by the [facility] Department of Pathology and Laboratory Medicine. It has not been cleared or approved by the FDA. The [facility] Department of Pathology and Laboratory Medicine is regulated under CLIA as qualified to perform high-complexity testing. This test is used for clinical purposes. It should not be regarded as investigational or for research. Performed By: #### L [id number], HCOAG, 6303-2, 94951-1, 53530-9 ####[facility] LABCLIA [id number] [facility] [address], [place] [address] [place] PLATELET NEUT 0.0 Seconds Normal <1.9 [facility] Comment on above: Order Comment: Speci men Type: BLOOD SPECIMENOrdering Facility: [facility] Address: [address] [place] [address] Result Comment: This test was developed, and its performance characteristics determined by the [facility] Department of Pathology and Laboratory Medicine. It has not been cleared or approved by the FDA. The [facility] Department of Pathology and Laboratory Medicine is regulated under CLIA as qualified to perform high-complexity testing. This test is used for clinical purposes. It should not be regarded as investigational or for research. Performed By: #### L [id number], HCOAG, 6303-2, 47965-2, 26059-5 ####[facility] LABCLIA [id number] [address] [address] [place] MANUAL DIFFERENTIAL, BODY FL UIDon 11-11-2024 DIF TTL, BODY FLUID 100 cells counted Normal [facility] Comment on above: Order Comment: Speci men Type: FLUID SPECIMENOrdering Facility: [facility] Address: [address] [place] [address] Performed By: #### C CBF, [id number] ####[facility] LABCLIA [id number] [address] [place] [address] [place] LYMPH%, BF 37 % High 18-36 [facility] Comment on above: Order Comment: Speci men Type: FLUID SPECIMENOrdering Facility: [facility] Address: [address] [place] [address] Performed By: #### C CBF, [id number] ####[facility] LABCLIA [id number] [facility] [address] [place] [address] [place] MACRO%, BF 21 % Low 64-80 [facility] Comment on above: Order Comment: Speci men Type: FLUID SPECIMENOrdering Facility: [facility] Address: [address] [id number] Performed By: #### C CBF, [id number] ####[facility] LABCLIA [id number] [address], [facility]95 [place] MESO %, BF 12 % High 0-2 [facility] Comment on above: Order Comment: Speci men Type: FLUID SPECIMENOrdering Facility: [facility] Address: [address] [place] [address] Performed By: #### C CBF, [id number] ####[facility] LABCLIA [id number] [address], [facility]95 [place] NEUT%, BF 26 % High 0-1 [facility] Comment on above: Order Comment: Speci men Type: FLUID SPECIMENOrdering Facility: [facility] Address: [address] [place] [address] Performed By: #### C CBF, [id number] ####[facility] LABCLIA [id number] [address], [facility]95 [place] REAC LYMPH %, BF 4 % Normal [facility] Comment on above: Order Comment: Speci men Type: FLUID SPECIMENOrdering Facility: [facility] Address: [address] [place] [address] Performed By: #### C CBF, [id number] ####[facility] LABCLIA [id number] [place] [address] [place] MEDICAL EMERon 11-11-2024 MEDICAL [place] Normal [facility] MEDICAL [place] Normal [facility] Magnesium SerPl-mCncon 11-11 Magnesium [Mass/Vol] 2.3 mg/dL Normal 1.7-2.3 [facility] Comment on above: Order Comment: Ezekiel james Type: BLOOD SPECIMENOrdering Facility: [facility] Address: [address] [place] [address] Performed By: #### 2 276-4, 68203-4, 32771-5, 65076-8, 2777-1, 92381-1 ####[facility] LABCLIA [id number] [address] OF [facility] NURSING PROGon 11-11-2024 NURSING PROG Normal [facility] PLT DEP.AB, UNF. HEPARINon 0 11-11-2024 % REL HIGH DOSE HEP PORCINE 0 % Normal [facility] Comment on above: Order Comment: Ezekiel james Type: BLOOD SPECIMENOrdering Facility: [facility] Address: [address] [place] [address] Performed By: #### S ERORE ####[facility]IES[facility]IA [id number] [place] [address] % REL LOW DOSE HEP PORCINE 0 % Normal [facility] Comment on above: Order Comment: Ezekiel james Type: BLOOD SPECIMENOrdering Facility: [facility] Address: [address] [place] [address] Performed By: #### S ERORE ####[facility]IESCLIA [id number] [place] [address] SEROTONIN REL INTERP See Note Normal [facility] Comment on above: Order Comment: Ezekiel ramirez Type: BLOOD SPECIMENOrdering Facility: [facility] Address: [address] [place] [address] Result Comment: This patient's specimen demonstrates a [...] Additionalinformation regarding diagnosis of HIT is available [email or web address].INTERPRETIVE INFORMATION: ABRAHAM, Unfractionated HeparinThis test was developed and its performance characteristicsdetermined by [facility]. It has not been cleared orapproved by the [place] Food and Drug Administration. This test wasperformed in a CLIA certified laboratory and is intended forclinical purposes.Performed By: [facility] [place], [place] [address]Cqipzqqvnr Director: Lizandro Ordonez MD, PhDCLIA Number: [id number] Performed By: #### S ERORE ####[facility]ENTERCLIA [id number] [place] [address] ABRAHAM, UNFRACTIONATED HEPARIN Negative Normal Negative [facility] Comment on above: Order Comment: Speci men Type: BLOOD SPECIMENOrdering Facility: [facility] Address: [address] [place] [address] Performed By: #### S ERORE ####[facility] [id number] [place] [address] PROTHROMBIN GENE PCRon 11-11 PROTHROMBIN GENE MUTATION Normal [facility] Comment on above: Order Comment: Speci men Type: BLOOD SPECIMENOrdering Facility: [facility] Address: [address] [place] [address] Result Comment: Prot hrombin Gene MutationLaboratory Accession Number: [id number]:NORMALInterpretation:The DNA sample is negative for the c.*97G>A variant (legacy hbol75536Y>A) in the 3' untranslated region of the Factor II (F2) gene.This result is not associated with an increased risk of thromboembolicdisease. Thromboembolic disease is a multifactorial disorder and othercauses are not excluded by this result.Methodology:Isolated Genomic DNA from the patient's blood specimen is evaluatedfor the c*97G>A (g.[id number]) variant of the F2 gene [RefSeqNM_000506.53;GRCh38/hg38] by multiplex polymerase chain reaction (PCR)followed by melting curve analysis.Limitations:This assay is designed to detect the c.*97G>A (56607M>A) variant inthe F2 gene. Uncommon variants or single nucleotide polymorphisms mayaffect binding of probes and may rarely result in false negative,false positive or indeterminate results. This assay does not detectother disease-associated rare variants in F2 or other causes ofthromboembolic disease.Disclaimer:This test was developed and its performance characteristics determinedby [facility]. Ithas not been cleared or approved by the FDA. [facility] is regulated under CLIAas certified to perform high-complexity testing. This test is used forclinical purposes. It should not be regarded as investigational or forresearch.Test performed at [facility], [address] [place] [address]. CLIA Number: [id number]:1) Inheritied Thrombophilias in . ACOG Practice Bulletin. No.197. [place] [employer]. ObseteGynecol 2018;132:e18-34.2) Elfego SR, Kinsey FR, Jeremy PH, and Bernice RIVERA. A commongenetic variation in the 3'-untranslated region of the prothrombingene is associated with elevated plasma prothrombin levels and anincrease in venous thrombosis. Blood 88:3698-703, 1995.3) Rica I, Justus V, Rimyulianaman C, Komauricio-Natalia K. Ryngtcxkvdr67749W>T: 16 new cases, association with the 59278V>G polymorphism,and literature review. J Thromb Haemost. 2009;9:1585-7.Interpretation performed at remote location (A1) by Fifi España MD Performed By: #### P TGEN ####[facility] [id number] [place] [address] [place] PT panel Coag (PPP)on 2024 INR Coag (PPP) [Relative time] 2.3 {INR} High 0.9-1.3 [facility] Comment on above: Order Comment: Speci men Type: BLOOD SPECIMENOrdering Facility: [facility] Address: [address] [place] [address] Result Comment: Sarah min K Antagonist (VKA) Therapeutic Range: INR 2 to 3 (Target INR of 2.5)Note: For patients treated with VKA drugs, such as warfarin, the [place] [employer] 2012 Guideline recommends [...] al. Chest 2012, 141:7S-47SNishimura RA, et al. [facility] 2017, 70: 252-289 Performed By: #### P TTA, 49693-6 ####[facility] [id number] [place] [address] [place] PT Coag (PPP) [Time] 23.1 s High 9.7-13.0 [facility] Comment on above: Order Comment: Ezekiel ramirez Type: BLOOD SPECIMENOrdering Facility: [facility] Address: [address] [place] [address] Performed By: #### P TTA, 11299-7 ####[facility] [id number] [place] [address] [place] INR Coag (PPP) [Relative time] 2.1 {INR} High 0.9-1.3 [facility] Comment on above: Order Comment: Ezekiel ramirez Type: BLOOD SPECIMENOrdering Facility: [facility] Address: [address] [place] [address] Result Comment: Sarah min K Antagonist (VKA) Therapeutic Range: INR 2 to 3 (Target INR of 2.5)Note: For patients treated with VKA drugs, such as warfarin, the [place] [employer] 2012 Guideline recommends [...] al. Chest 2012, 141:7S-47SNishimura RA, et al. [facility] 2017, 70: 252-289 Performed By: #### 3 4528-0 ####[facility] [id number] [place] [address] [place] PT Coag (PPP) [Time] 22.0 s High 9.7-13.0 [facility] Comment on above: Order Comment: Ezekiel ramirez Type: BLOOD SPECIMENOrdering Facility: [facility] Address: [address] [place] [address] Performed By: #### 3 4528-0 ####[facility] [id number] [place] [address] [place] PTT, ANTICOAGULANT THERAPYon 11-11-2024 aPTT Coag (PPP) [Time] EXTREMELY ABNORMA L RESULT. No clot detected at 320 seconds. Refer to anticoagulation nomogram for further actions. Critically abnormal (none) [facility] Comment on above: Order Comment: Ezekiel ramirez Type: BLOOD SPECIMENOrdering Facility: [facility] Address: [address] [place] [address] Result Comment: Resu lt rechecked.Sample checked for clot. Performed By: #### P TTAC, 80387-8 ####[facility] [id number] [place] [address] [place] Phosphate SerPl-mCncon 11-11 Phosphate [Mass/Vol] 2.6 mg/dL Low 2.7-4.8 [facility] Comment on above: Order Comment: Ezekiel ramirez Type: BLOOD SPECIMENOrdering Facility: [facility] Address: [address] [place] [address] Performed By: #### 2 276-4, 34710-9, 18688-2, 99916-0, 2777-1, 01717-1 ####[facility] LABCLIA [id number] [place] [address] [place] Prot Fld-mCncon 11-11-2024 Protein (Body fld) [Mass/Vol] 0.2 g/dL Normal See Comment [facility] Comment on above: Order Comment: Speci men Type: FLUID SPECIMENOrdering Facility: [facility] Address: [address] [place] [address] Result Comment: Sero us fluids: Effusions are [...] document C49A. Joe PA: Clinical Laboratory Standards [place]: 2007. Performed By: #### 1 747-5, 1795-4, 55829-9, 2881-1 ####[facility] LABCLIA [id number] [place] [address] [place] Renal function 2000 panelon 11-11-2024 Albumin [Mass/Vol] 2.4 g/dL Low 3.9-4.9 [facility] Comment on above: Order Comment: Speci men Type: BLOOD SPECIMENOrdering Facility: [facility] Address: [address] [place] [address] Performed By: #### 2 4362-6, 4542-7 ####[facility] LABCLIA [id number] [address] [address] [place] Anion gap [Moles/Vol] 10 mmol/L Normal 8-15 [facility] Comment on above: Order Comment: Speci men Type: BLOOD SPECIMENOrdering Facility: [facility] Address: [address] [place], [place] [address] Performed By: #### 2 4362-6, 454-7 ####[facility] LABCLIA [id number] [place] [address] [place] Calcium [Mass/Vol] 9.3 mg/dL Normal 8.5-10.2 [facility] Comment on above: Order Comment: Speci men Type: BLOOD SPECIMENOrdering Facility: [facility] Address: [address] [place] [address] Performed By: #### 2 4362-6, 4541-7 ####[facility] LABIA [id number] [place] [address] [place] Chloride [Moles/Vol] 100 mmol/L Normal 98-107 [facility] Comment on above: Order Comment: Speci men Type: BLOOD SPECIMENOrdering Facility: [facility] Address: [address] [place] [address] Performed By: #### 2 4362-6, 4541-7 ####[facility] LABCLIA [id number] [place] [address] [place] CO2 [Moles/Vol] 13 mmol/L Low 22-30 [facility] Comment on above: Order Comment: Speci men Type: BLOOD SPECIMENOrdering Facility: [facility] Address: [address] [place], [place] [address] Performed By: #### 2 4362-6, 4541-7 ####[facility] LABCLIA [id number] [address] [address] [place] Creatinine [Mass/Vol] 1.26 mg/dL High 0.73-1.22 [facility] Comment on above: Order Comment: Ezekiel ramirez Type: BLOOD SPECIMENOrdering Facility: [facility] Address: [address] [place] [address] Performed By: #### 2 4362-6, 4542-7 ####[facility] LABCLIA [id number] [place] [address] [place] Creatinine and Glomerular filtration rate.predicted panel (S/P/Bld) 66 mL/min/1.73m??? Normal >=60 [facility] Comment on above: Order Comment: Ezekiel ramirez Type: BLOOD SPECIMENOrdering Facility: [facility] Address: [address] [place] [address] Result Comment: Patric mated Glomerular Filtration Rate [...] GFR. Performed By: #### 2 4362-6, 4542-7 ####[facility] LABCLIA [id number] [place] [address] [place] Glucose [Mass/Vol] 255 mg/dL High 74-99 [facility] Comment on above: Order Comment: Ezekiel ramirez Type: BLOOD SPECIMENOrdering Facility: [facility] Address: [address] [place] [address] Result Comment: The [place] Diabetes Association (ADA) provides guidance for cutoff [...] Standards of Medical Care in Diabetes 2016, [place] [employer] Association. Diabetes Care. 2016.39(Suppl 1). Performed By: #### 2 4362-6, 7 ####[facility] LABCLIA [id number] [address] [address] [place] Phosphate [Mass/Vol] 2.5 mg/dL Low 2.7-4.8 [facility] Comment on above: Order Comment: Speci men Type: BLOOD SPECIMENOrdering Facility: [facility] Address: [address] [place], [place] [address] Performed By: #### 2 4362-6, 7 ####[facility] LABIA [id number] [place] [address] [place] Potassium [Moles/Vol] 4.4 mmol/L Normal 3.7-5.1 [facility] Comment on above: Order Comment: Speci men Type: BLOOD SPECIMENOrdering Facility: [facility] Address: [address] [place], [place] [address] Performed By: #### 2 436-6, 7 ####[facility] LABIA [id number] [address] [address] [place] Sodium [Moles/Vol] 123 mmol/L Low 136-144 [facility] Comment on above: Order Comment: Speci men Type: BLOOD SPECIMENOrdering Facility: [facility] Address: [address] [id number] Performed By: #### 2 4362-6, 7 ####[facility] LABIA [id number] [address] [address] [place] Urea nitrogen [Mass/Vol] 21 mg/dL Normal 9-24 [facility] Comment on above: Order Comment: Speci men Type: BLOOD SPECIMENOrdering Facility: [facility] Address: [address] [place], [place] [address] Performed By: #### 2 4362-6, 4541-7 ####[facility] LABCLIA [id number] [place] [address] [place] Retics #on 11-11-2024 Reticulocytes (Bld) [#/Vol] 0.86592 10*3/uL High 0.018-0.100 [facility] Comment on above: Order Comment: Speci men Type: BLOOD SPECIMENOrdering Facility: [facility] Address: [address] [place] [address] Performed By: #### I PFR, 51797-1, 47500-5 ####[facility] LABCLIA [id number] [place] [address] [place] Reticulocytes (Bld) [#/Vol]o n 11-11-2024 Reticulocytes/100 RBC (Bld) 4.1 % High 0.4-2.0 [facility] Comment on above: Order Comment: Speci men Type: BLOOD SPECIMENOrdering Facility: [facility] Address: [address] [place] [address] Performed By: #### I PFR, 74295-8, 47674-1 ####[facility] LABCLIA [id number] [place] [address] [place] SEPSIS LACTATEon 11-11-2024 Lactate [Moles/Vol] 3.4 mmol/L High <=2.0 [facility] Comment on above: Order Comment: Speci men Type: BLOOD SPECIMENOrdering Facility: [facility] Address: [address] [place] [address] Performed By: #### S LACT ####[facility] LABCLIA [id number] [place] [address] [place] Lactate [Moles/Vol] 3.6 mmol/L High <=2.0 [facility] Comment on above: Order Comment: Speci men Type: BLOOD SPECIMENOrdering Facility: [facility] Address: [address] [place] [address] Performed By: #### S LACT ####[facility] LABCLIA [id number] [place] [address] [place] Screen dRVVTon 11-11-2024 dRVVT Coag (PPP) [Time] 42.6 s Normal 32.0-45.7 C [facility] Comment on above: Order Comment: Speci men Type: BLOOD SPECIMENOrdering Facility: [facility] Address: [address] [place] [address] Performed By: #### L [id number], HCOAG, 6303-2, 14834-6, 10287-5 ####[facility] LABIA [id number] [place] [address] [place] US ABD LIVER VASCULARon 04-1 US ABD LIVER VASCULAR Normal [facility] US DOPPLER COMPLETEon 2024 US DOPPLER COMPLETE Normal [facility] XR ABDOMEN 1V SUPINEon 11-11 XR ABDOMEN 1V SUPINE Normal [facility] XR CHEST 1V FRONTAL PORTon 0 11-11-2024 XR CHEST 1V FRONTAL PORT Normal [facility] XR CHEST 1V FRONTAL PORT Normal [facility] aPTT PPPon 11-11-2024 aPTT Coag (PPP) [Time] 41.7 s High 23.0-32.4 Cl [facility] Comment on above: Order Comment: Speci men Type: BLOOD SPECIMENOrdering Facility: [facility] Address: [address] [place] [address] Performed By: #### 3 255-7, 21854-1 ####[facility] [id number] [place] [address] [place] dRVVT Coag (PPP) [Time]on dRVVT factor substitution immediately after 1:2 addition of normal plasma Coag (PPP) [Time] 35.4 seconds Normal 32.0-45.7 [facility] Comment on above: Order Comment: Speci men Type: BLOOD SPECIMENOrdering Facility: [facility] Address: [address] [place] [address] Performed By: #### L [id number], HCOAG, 6303-2, 20084-0, 20649-0 ####[facility] LABCLIA [id number] [place] [address] [place] dRVVT/dRVVT.excess phospholipid Coag (PPP) [Ratio] 0.91 Normal <1.32 [facility] Comment on above: Order Comment: Speci men Type: BLOOD SPECIMENOrdering Facility: [facility] Address: [address] [place] [address] Performed By: #### L KY0322, HCOAG, 6303-2, 18017-6, 24657-8 ####[facility] LABCLIA [id number] [place] [address] [place] ALP [Catalytic activity/Vol] Ordered By: Kathie Lemos on 11-10-2024 Serum or plasma alkaline phosphatase measurement 310 U/L High 40-129 [facility] ALT [Catalytic activity/Vol] Ordered By: Kathie Lemos on 11-10-2024 Serum or plasma alanine aminotransferase (ALT) measurement 36 U/L <47 [facility] Absolute lymphocyte countOrd ered By: Kathie Lemos on 11-10-2024 Lymphocytes Auto (Unsp spec) [#/Vol] 1.30 10*3/uL 0.83-4.51 [facility] Absolute neutrophil countOrd ered By: Kathie Lemos on 11-10-2024 Absolute neutrophil count 16.2 X10^3/uL High 2.0-7.7 [facility] Albumin [Mass/Vol]Ordered By : Kathie Lemos on 11-10-2024 Serum or plasma albumin measurement (mass/volume) 2.3 g/dL Low 3.5-5.0 [facility] Albumin/Globulin [Mass ratio ]Ordered By: Kathie Lemos on 11-10-2024 Serum or plasma albumin/globulin mass ratio 0.7 RATIO Low 0.9-2.4 [facility] Anion gap [Moles/Vol]Ordered By: Kathie Lemos on 11-10-2024 Anion gap in Serum or Plasma 11 - [facility] Anion gap in Serum or Plasma Ordered By: Kathie Lemos on 11-10-2024 Anion gap [Moles/Vol] 11 mmol/L - [facility] Automated lymphocyte count a s percentage of total leukocytesOrdered By: Kathie Lemos on 11-10-2024 Lymphocytes/100 WBC Auto (Unsp spec) 6.6 % Low 19-41 [facility] BUN/creatinine ratioOrdered By: Kathie Lemos on 11-10-2024 Urea nitrogen/Creatinine [Mass ratio] 16.6 mg/mg 10- [facility] BUN/creatinine ratio 16.6 RATIO 10- [facility] Bacteria LM.HPF (Urine sed) [#/Area]Ordered By: Kathie Lemos on 11-10-2024 Urine sediment bacteria count by microscopy (number/high power field) 2+ /hpf None Seen [facility] Basic Metabolic Profile (BMP )on 11-10-2024 BUN Normal 4-19 [facility] Comment on above: Result Comment: Devonte goodwin via OM: Ordered Performed By: #### L 100.0500, L500.2500 ####[facility] [address] [place], [address] Performed By: #### L 500.2500, L100.0100 ####[facility] [address] [place], [address] BUN/CRE Normal - [facility] Comment on above: Result Comment: Devonte goodwin via OM: Ordered Performed By: #### L 100.0500, L500.2500 ####[facility] [address] [place], [address] Performed By: #### L 500.2500, L100.0100 ####[facility] [address] [place], [address] Calcium Normal 7.6-11.0 [facility] Comment on above: Result Comment: Devonte goodwin via OM: Ordered Performed By: #### L 100.0500, L500.2500 ####[facility] [address] [place], [address] Performed By: #### L 500.2500, L100.0100 ####[facility] [address] [place], [address] CL Normal 98-108 [facility] Comment on above: Result Comment: Canc elled via OM: MD Ordered Performed By: #### L 100.0500, L500.2500 ####[facility] [address] [place], [address] Performed By: #### L 500.2500, L100.0100 ####[facility] [address] [place], [address] CO2 Normal 21.0-32.0 [facility] Comment on above: Result Comment: Canc elled via OM: MD Ordered Performed By: #### L 100.0500, L500.2500 ####[facility] [address] [place], [address] Performed By: #### L 500.2500, L100.0100 ####[facility] [address] [place], [address] CREAT,SERUM Normal 0.70-1.20 [facility] Comment on above: Result Comment: Canc elled via OM: MD Ordered Performed By: #### L 100.0500, L500.2500 ####[facility] [address] [place], [address] Performed By: #### L 500.2500, L100.0100 ####[facility] [address] [place], [address] eGFR Normal >60 [facility] Comment on above: Result Comment: Canc elled via OM: MD Ordered Performed By: #### L 100.0500, L500.2500 ####[facility] [address] [place], [address] Performed By: #### L 500.2500, L100.0100 ####[facility] [address] [place], [address] GAP Normal 5-15 [facility] Comment on above: Result Comment: Canc elled via OM: MD Ordered Performed By: #### L 100.0500, L500.2500 ####[facility] [address] [place], [address] Performed By: #### L 500.2500, L100.0100 ####[facility] [address] [place], [address] GLU Normal 70-99 [facility] Comment on above: Result Comment: Canc elled via OM: MD Ordered Performed By: #### L 100.0500, L500.2500 ####[facility] [address] [place], [address] Performed By: #### L 500.2500, L100.0100 ####[facility] [address] [place], [address] Potassium Normal 3.3-5.1 [facility] Comment on above: Result Comment: Canc elled via OM: MD Ordered Performed By: #### L 100.0500, L500.2500 ####[facility] [address] [place], [address] Performed By: #### L 500.2500, L100.0100 ####[facility] [address] [place], [address] Basic Metabolic Profile (BMP) Normal 133-145 [facility] Comment on above: Result Comment: Canc elled via OM: MD Ordered Performed By: #### L 100.0500, L500.2500 ####[facility] [address] [place], [address] Performed By: #### L 500.2500, L100.0100 ####[facility] [address] [place], [address] Basophil percentageOrdered B y: Kathie Lemos on 11-10-2024 Basophils/100 WBC (Bld) 0.5 % 0-1 [facility] Basophil percentage 0.5 % 0-1 [facility] Bedside Glucoseon 11-10-2024 FINGERSTICK GLU 265 mg/dL High 74-106 [facility] Comment on above: Result Comment: BRISA GEMENT OF PATIENT CARE PER NURSING PROTOCOL Performed By: #### L 501.080 ####[facility] [address] [place], [address] FINGERSTICK GLU 271 mg/dL High 74-106 [facility] Comment on above: Result Comment: BRISA GEMENT OF PATIENT CARE PER NURSING PROTOCOL Performed By: #### L 501.080 ####[facility] [address] [place], [address] FINGERSTICK GLU 255 mg/dL High 74-106 [facility] Comment on above: Result Comment: BRISA GEMENT OF PATIENT CARE PER NURSING PROTOCOL Performed By: #### L 501.080 ####[facility] [address] [place], [address] FINGERSTICK GLU 264 mg/dL High 74-106 [facility] Comment on above: Result Comment: BRISA GEMENT OF PATIENT CARE PER NURSING PROTOCOL Performed By: #### L 501.080 ####[facility] [address] [place], [address] Bilirubin Test strip Ql (U)O rdered By: Kathie Lemos on 11-10-2024 Bilirubin Ql (U) Negative Negative [facility] Urine total bilirubin detection by test strip Negative Negative [facility] Bilirubin, totalOrdered By: Kathie Lemso on 11-10-2024 Bilirubin [Mass/Vol] 2.09 mg/dL High 0.00-1.30 [facility] Bilirubin, total 2.09 mg/dL High 0.00-1.30 [facility] CBC W/Diff, Automatedon 04 Absolute Lymph 1.30 X10 3/uL Normal 0.83-4.51 [facility] Comment on above: Performed By: #### L 500.2500, L100.0100 ####[facility] [address] [place], [address] Absolute Neut 16.2 X10 3/uL High 2.0-7.7 [facility] Comment on above: Performed By: #### L 500.2500, L100.0100 ####[facility] [address] [place], [address] Basophils/100 WBC (Bld) 0.5 % Normal 0-1 [facility] Comment on above: Performed By: #### L 500.2500, L100.0100 ####[facility] [address] [place], [address] Eosinophils/100 WBC (Bld) 1.9 % Normal 0-5 [facility] Comment on above: Performed By: #### L 500.2500, L100.0100 ####[facility] [address] [place], [address] Erythrocyte distribution width (RBC) [Ratio] 18.1 % High 11.6-14.6 [facility] Comment on above: Performed By: #### L 500.2500, L100.0100 ####[facility] [address] [place], [address] Hematocrit (Bld) [Volume fraction] 32.9 % Low 40-54 [facility] Comment on above: Performed By: #### L 500.2500, L100.0100 ####[facility] [address] [place], [address] Hemoglobin (Bld) [Mass/Vol] 11.3 g/dL Low 13.0-16.5 [facility] Comment on above: Performed By: #### L 500.2500, L100.0100 ####[facility] [address] [place], [address] IG% 1.100 High 0.0-0.9 [facility] Comment on above: Result Comment: IG% - Immature Granulocytes (promyelocytes, myelocytes andmetamyelocytes) > 1% indicates that a LEFT SHIFT is Present. Performed By: #### L 500.2500, L100.0100 ####[facility] [address] [place], [address] Lymphocytes/100 WBC (Bld) 6.6 % Low 19-41 [facility] Comment on above: Performed By: #### L 500.2500, L100.0100 ####[facility] [address] [place], [address] MCH (RBC) [Entitic mass] 31.8 pg Normal 27.0-32.0 [facility] Comment on above: Performed By: #### L 500.2500, L100.0100 ####[facility] [address] [place], [address] MCHC (RBC) [Mass/Vol] 34.3 g/dL Normal 32-36 [facility] Comment on above: Performed By: #### L 500.2500, L100.0100 ####[facility] [address] [place], [address] MCV (RBC) [Entitic vol] 92.7 fL Normal 80-94 [facility] Comment on above: Performed By: #### L 500.2500, L100.0100 ####[facility] [address] [place], [address] Monocytes/100 WBC (Bld) 6.9 % Normal 0-10 [facility] Comment on above: Performed By: #### L 500.2500, L100.0100 ####[facility] [address] [place], [address] Neutrophils/100 WBC (Bld) 83.0 % High 47-70 [facility] Comment on above: Performed By: #### L 500.2500, L100.0100 ####[facility] [address] [place], [address] Nucleated RBC (Bld) [#/Vol] 0 10*3/uL Normal 0-5 [facility] Comment on above: Performed By: #### L 500.2500, L100.0100 ####[facility] [address] [place], [address] Platelet mean volume (Bld) [Entitic vol] 12.2 fL High 6.2-12.0 [facility] Comment on above: Performed By: #### L 500.2500, L100.0100 ####[facility] [address] [place], [address] Platelets (Bld) [#/Vol] 58 10*3/uL Low 150-450 [facility] Comment on above: Performed By: #### L 500.2500, L100.0100 ####[facility] [address] [place], [address] RBC (Bld) [#/Vol] 3.55 10*6/uL Low 4.6-6.2 [facility] Comment on above: Performed By: #### L 500.2500, L100.0100 ####[facility] [address] [place], [address] RDW SD 62.1 fl High 35.1-43.9 [facility] Comment on above: Performed By: #### L 500.2500, L100.0100 ####[facility] [address] [place], [address] WBC (Bld) [#/Vol] 19.6 10*3/uL High 4.4-11.0 [facility] Comment on above: Performed By: #### L 500.2500, L100.0100 ####[facility] [address] [place], [address] CBC-Complete Blood Cnt No Di ffon 11-10-2024 PATH REV N/A Normal [facility] Comment on above: Result Comment: AMENDED REPORT 11/10/242154 PATH REV previously reported as: December foll Performed By: #### L 100.0500 ####[facility] [address] [place], [address] PATH REV N/A Normal [facility] Comment on above: Order Comment: THROM BOCYTOPENIA NOTED Result Comment: AMENDED REPORT 11/10/242150 PATH REV previously reported as: December foll Performed By: #### L 100.0500, L500.2500 ####[facility] [address] [place], [address] HCT Normal 40-54 [facility] Comment on above: Result Comment: Canc elled via OM: MD Ordered Performed By: #### L 100.0500, L500.2500 ####[facility] [address] [place], [address] HGB Normal 13.0-16.5 [facility] Comment on above: Result Comment: Canc elled via OM: MD Ordered Performed By: #### L 100.0500, L500.2500 ####[facility] [address] [place], [address] MCH Normal 27.0-32.0 [facility] Comment on above: Result Comment: Canc elled via OM: MD Ordered Performed By: #### L 100.0500, L500.2500 ####[facility] [address] [place], [address] MCHC Normal 32-36 [facility] Comment on above: Result Comment: Canc elled via OM: MD Ordered Performed By: #### L 100.0500, L500.2500 ####[facility] [address] [place], [address] MCV Normal 80-94 [facility] Comment on above: Result Comment: Canc elled via OM: MD Ordered Performed By: #### L 100.0500, L500.2500 ####[facility] [address] [place], [address] PLT Normal 150-450 [facility] Comment on above: Result Comment: Canc elled via OM: MD Ordered Performed By: #### L 100.0500, L500.2500 ####[facility] [address] [place], [address] RBC Normal 4.6-6.2 [facility] Comment on above: Result Comment: Canc elled via OM: MD Ordered Performed By: #### L 100.0500, L500.2500 ####[facility] [address] [place], [address] RDW CV Normal 11.6-14.6 [facility] Comment on above: Result Comment: Canc elled via OM: MD Ordered Performed By: #### L 100.0500, L500.2500 ####[facility] [address] [place], [address] RDW SD Normal 35.1-43.9 [facility] Comment on above: Result Comment: Canc elled via OM: MD Ordered Performed By: #### L 100.0500, L500.2500 ####[facility] [address] [place], [address] WBC Normal 4.4-11.0 [facility] Comment on above: Result Comment: Canc elled via OM: Ordered Performed By: #### L 100.0500, L500.2500 ####[facility] [address] [place], [place], [address] Calcium [Mass/Vol]Ordered By : Kathie Lemos on 11-10-2024 Serum or plasma calcium measurement (mass/volume) 9.2 mg/dL 7.6-11.0 [facility] Carbon dioxide, total [Moles /volume] in Central venous bloodOrdered By: Kathie Lemos on 11-10-2024 CO2 [Moles/Vol] 13.3 mmol/L Low 21.0-32.0 [facility] Carbon dioxide, total [Moles/volume] in Central venous blood 13.3 mmol/L Low 21.0-32.0 [facility] Chloride assayOrdered By: Paulette Lemos on 11-10-2024 Chloride [Moles/Vol] 99 mmol/L 98-108 [facility] Chloride assay 99 mmol/L 98-108 [facility] Clarity (U)Ordered By: Kathie Lemos on 11-10-2024 Urine clarity Turbid Clear [facility] Color (U)Ordered By: Kathie bhatt on 11-10-2024 Urine color determination Brown Yellow [facility] Comprehensive Metabolic Prof ilon 11-10-2024 Albumin [Mass/Vol] 2.3 g/dL Low 3.5-5.0 [facility] Comment on above: Performed By: #### L 500.4050 ####[facility] [address] [place], [address] Albumin/Globulin [Mass ratio] 0.7 {ratio} Low 0.9-2.4 [facility] Comment on above: Performed By: #### L 500.4050 ####[facility] [address] [place], [address] ALK PHOS 310 U/L High 40-129 [facility] Comment on above: Performed By: #### L 500.4050 ####[facility] [address] [place], [address] ALT [Catalytic activity/Vol] 36 U/L Normal <=46 [facility] Comment on above: Performed By: #### L 500.4050 ####[facility] [address] [place], [address] AST [Catalytic activity/Vol] 58 U/L High <=37 [facility] Comment on above: Performed By: #### L 500.4050 ####[facility] [address] [place], [address] Bilirubin [Mass/Vol] 2.09 mg/dL High 0.00-1.30 [facility] Comment on above: Performed By: #### L 500.4050 ####[facility] [address] [place], [address] BUN/CRE 16.6 RATIO Normal 10-20 [facility] Comment on above: Performed By: #### L 500.4050 ####[facility] [address] [place], [address] Calcium [Mass/Vol] 9.2 mg/dL Normal 7.6-11.0 [facility] Comment on above: Performed By: #### L 500.4050 ####[facility] [address] [place], [address] Chloride [Moles/Vol] 99 mmol/L Normal 98-108 [facility] Comment on above: Performed By: #### L 500.4050 ####[facility] [address] [place], [address] CO2 [Moles/Vol] 13.3 mmol/L Low 21.0-32.0 [facility] Comment on above: Performed By: #### L 500.4050 ####[facility] [address] [place], [address] Creatinine [Mass/Vol] 1.13 mg/dL Normal 0.70-1.20 [facility] Comment on above: Performed By: #### L 500.4050 ####[facility] [address] [place], [address] ECRCL 88.23 ml/min Normal 50-250 [facility] Comment on above: Performed By: #### L 500.4050 ####[facility] [address] [place], [address] GAP 11 Normal 5-15 [facility] Comment on above: Performed By: #### L 500.4050 ####[facility] [address] [place], [address] GFR/1.73 sq M.predicted among non-blacks MDRD (S/P/Bld) [Vol rate/Area] 75 mL/min/{1.73_m2} Normal >60 [facility] Comment on above: Result Comment: mL/m in/1.73m2 CKD-EPI Creatinine Equation (2020) Performed By: #### L 500.4050 ####[facility] [address] [place], [address] Globulin (S) [Mass/Vol] 3.4 g/dL Normal 2.2-4.2 [facility] Comment on above: Performed By: #### L 500.4050 ####[facility] [address] [place], [address] Glucose [Mass/Vol] 298 mg/dL High 70-99 [facility] Comment on above: Performed By: #### L 500.4050 ####[facility] [address] [place], [address] Potassium [Moles/Vol] 3.6 mmol/L Normal 3.3-5.1 [facility] Comment on above: Performed By: #### L 500.4050 ####[facility] [address] [place], [place], [address] Sodium [Moles/Vol] 123 mmol/L Low 133-145 [facility] Comment on above: Performed By: #### L 500.4050 ####[facility] [address] [place], [place], [address] T PROT 5.7 g/dL Low 5.9-8.4 [facility] Comment on above: Performed By: #### L 500.4050 ####[facility] [address] [place], [place], [address] Urea nitrogen [Mass/Vol] 19 mg/dL Normal 4-19 [facility] Comment on above: Performed By: #### L 500.4050 ####[facility] [address] [place], [place], [address] Creatinine [Mass/Vol]Ordered By: Kathie Lemos on 11-10-2024 Serum creatinine measurement (mass/volume) 1.13 mg/dL 0.70-1.20 [facility] Discharge Instructionon 04-0 Discharge Instruction Normal [facility] Eosinophil percentageOrdered By: Kathie Lemos on 11-10-2024 Eosinophils/100 WBC (Bld) 1.9 % 0-5 [facility] Eosinophil percentage 1.9 % 0-5 [facility] Erythrocyte distribution wid th (RBC) [Ratio]Ordered By: Kathie Lemos on 11-10-2024 Erythrocyte distribution width ratio 18.1 % High 11.6-14.6 [facility] Erythrocyte distribution width standard deviation 62.1 fl High 35.1-43.9 [facility] Erythrocyte distribution wid th ratioOrdered By: Kathie Lemos on 11-10-2024 Erythrocyte distribution width (RBC) [Ratio] 18.1 % High 11.6-14.6 [facility] Erythrocyte distribution wid th standard deviationOrdered By: Kathie Lemos on 11-10-2024 Erythrocyte distribution width (RBC) [Ratio] 62.1 fl High 35.1-43.9 [facility] Estimation of creatinine [place] aranceOrdered By: Kathie Lemos on 11-10-2024 Estimation of creatinine clearance 88.23 ml/min 50-250 [facility] GFR/1.73 sq M.predicted niki g non-blacks MDRD (S/P/Bld) [Vol rate/Area]Ordered By: Kathie Lemos on 11-10-2024 Glomerular filtration rate (GFR) estimation/1.73 sq m using serum, plasma, or whole b 75 >60 [facility] Glomerular filtration rate ( GFR) estimation/1.73 sq m using serum, plasma, or whole bOrdered By: Kathie Lemos on 11-10-2024 GFR/1.73 sq M.predicted among non-blacks MDRD (S/P/Bld) [Vol rate/Area] 75 mL/min/{1.73_m2} >60 [facility] Glucose Ql (U)Ordered By: Paulette Lemos on 11-10-2024 Urine glucose detection Normal mg/dl Normal [facility] Glucose [Mass/Vol]Ordered By : Kathie Lemos on 11-10-2024 Serum glucose measurement (mass/volume) 298 mg/dL High 70-99 [facility] Glucose measurement at bedsi deOrdered By: Kathie Lemos on 11-10-2024 Glucose [Mass/Vol] 265 mg/dL High 74-106 [facility] Glucose measurement at bedside 265 mg/dL High 74-106 [facility] Hematocrit Auto (Bld) [Volum e fraction]Ordered By: Kathie Lemos on 11-10-2024 Hematocrit (Bld) [Volume fraction] 32.9 % Low 40-54 [facility] Automated blood hematocrit (percentage) 32.9 % Low 40-54 [facility] Hemoglobin measurementOrdere d By: Kathie Lemos on 11-10-2024 Hemoglobin (Bld) [Mass/Vol] 11.3 g/dL Low 13.0-16.5 [facility] Hemoglobin measurement 11.3 g/dL Low 13.0-16.5 [facility] Immature granulocytes/100 WB C Auto (Bld)Ordered By: Kathie Lemos on 11-10-2024 Immature granulocytes/100 WBC (Bld) 1.100 % High 0.0-0.9 [facility] Automated immature granulocyte percentage 1.100 % High 0.0-0.9 [facility] International normalized rat io (INR) calculationOrdered By: Kathie Lemos on 11-10-2024 International normalized ratio (INR) calculation 3.1 [facility] Ketones Test strip Ql (U)Ord ered By: Kathie Lemos on 11-10-2024 Ketones Ql (U) 5 mg/dl High Negative [facility] Urine ketones detection by test strip 5 mg/dl High Negative [facility] Leukocyte esterase Test stri p Ql (U)Ordered By: Kathie Lemos on 11-10-2024 Urine leukocyte esterase detection by dipstick 500 /ul High Negative [facility] Lymphocytes Auto (Unsp spec) [#/Vol]Ordered By: Kathie Lemos on 11-10-2024 Absolute lymphocyte count 1.30 X10^3/uL 0.83-4.51 [facility] Lymphocytes/100 WBC Auto (Un sp spec)Ordered By: Kathie Lemos on 11-10-2024 Automated lymphocyte count as percentage of total leukocytes 6.6 % Low 19-41 [facility] MCV (RBC) [Entitic vol]Order ed By: Kathie Lemos on 11-10-2024 MCV (mean corpuscular volume) determination 92.7 fL 80-94 [facility] MCV (mean corpuscular volume ) determinationOrdered By: Kathie Lemos on 11-10-2024 MCV (RBC) [Entitic vol] 92.7 fL 80-94 [facility] Mean corpuscular hemoglobin (MCH) determinationOrdered By: Kathie Lemos on 11-10-2024 MCH (RBC) [Entitic mass] 31.8 pg 27.0-32.0 [facility] Mean corpuscular hemoglobin (MCH) determination 31.8 pg 27.0-32.0 [facility] Mean corpuscular hemoglobin concentration (MCHC) determinationOrdered By: Kathie Lemos on 11-10-2024 Mean corpuscular hemoglobin concentration (MCHC) determination 34.3 g/dL 32-36 [facility] Mean platelet volume determi nationOrdered By: Kathie Lemos on 11-10-2024 Mean platelet volume determination 12.2 fl High 6.2-12.0 [facility] Microscopic analysis of urin e for red blood cells (RBC)Ordered By: Kathie Lemos on 11-10-2024 Microscopic analysis of urine for red blood cells (RBC) > 100 SEEN /hpf 0-5 [facility] Monocyte percentageOrdered B y: Kathie Lemos on 11-10-2024 Monocytes/100 WBC (Bld) 6.9 % 0-10 [facility] Monocyte percentage 6.9 % 0-10 [facility] Mucus LM Ql (Urine sed)Order ed By: Kathie Lemos on 11-10-2024 Mucus Ql (Urine sed) 0 SEEN /hpf [facility] Neutrophil percentageOrdered By: Kathie Lemos on 11-10-2024 Neutrophils/100 WBC (Bld) 83.0 % High 47-70 [facility] Neutrophil percentage 83.0 % High 47-70 [facility] Nitrite Test strip Ql (U)Ord ered By: Kathie Lemos on 11-10-2024 Nitrite Ql (U) Positive High Negative [facility] Urine nitrite test by dipstick Positive High Negative [facility] No Panel InformationOrdered By: Kathie Lemos on 11-10-2024 58 U/L High <38 [facility] Nucleated red blood cell per centageOrdered By: Kathie Lemos on 11-10-2024 Nucleated red blood cell percentage 0 % 0-5 [facility] Platelet countOrdered By: Paulette Lemos on 11-10-2024 Platelets (Bld) [#/Vol] 58 10*3/uL Low 150-450 [facility] Platelet count 58 K/mm3 Low 150-450 [facility] Potassium (Unsp spec) [Mass/ Vol]Ordered By: Kathie Lemos on 11-10-2024 Potassium measurement (mass/volume) 3.6 mmol/L 3.3-5.1 [facility] Potassium measurement (mass/ volume)Ordered By: Kathie Lemos on 11-10-2024 Potassium (Unsp spec) [Mass/Vol] 3.6 mmol/L 3.3-5.1 [facility] Protein Test strip Ql (U)Ord ered By: Kathie Lemos on 11-10-2024 Protein Ql (U) 500 mg/dl High Negative [facility] Urine protein assay by test strip, semi-quantitative 500 mg/dl High Negative [facility] Prothrombin Time w/INRon INR Coag (PPP) [Relative time] 3.1 {INR} Normal [facility] Comment on above: Order Comment: Comme nts: Add onto previous labs if possiblePER PT'S NURSE-WILL DRAW OFF PT PICC Performed By: #### L 300.3900 ####[facility] [address] [place], [place], [id number] PT Coag (PPP) [Time] 32.3 s High 11.7-14.9 [facility] Comment on above: Order Comment: Comme nts: Add onto previous labs if possiblePER PT'S NURSE-WILL DRAW OFF PT PICC Performed By: #### L 300.3900 ####[facility] [address] [place], [place], [id number] Prothrombin timeOrdered By: Kathie Lemos on 11-10-2024 PT Coag (PPP) [Time] 32.3 s High 11.7-14.9 [facility] Prothrombin time 32.3 SECONDS High 11.7-14.9 [facility] RBC Auto (Bld) [#/Vol]Ordere d By: Kathie Lemos on 11-10-2024 RBC (Bld) [#/Vol] 3.55 10*6/uL Low 4.6-6.2 [facility] Automated blood erythrocyte count 3.55 M/mm3 Low 4.6-6.2 [facility] Serum creatinine measurement (mass/volume)Ordered By: Kathie Lemos on 11-10-2024 Creatinine [Mass/Vol] 1.13 mg/dL 0.70-1.20 [facility] Serum globulin measurementOr dered By: Kathie Lemos on 11-10-2024 Globulin (S) [Mass/Vol] 3.4 g/dL 2.2-4.2 [facility] Serum globulin measurement 3.4 g/dL 2.2-4.2 [facility] Serum glucose measurement (m ass/volume)Ordered By: Kathie Lemos on 11-10-2024 Glucose [Mass/Vol] 298 mg/dL High 70-99 [facility] Serum or plasma alanine thomas otransferase (ALT) measurementOrdered By: Kathie Lemos on 11-10-2024 ALT [Catalytic activity/Vol] 36 U/L <47 [facility] Serum or plasma albumin roosevelt urement (mass/volume)Ordered By: Kathie Lemos on 11-10-2024 Albumin [Mass/Vol] 2.3 g/dL Low 3.5-5.0 [facility] Serum or plasma albumin/glob ulin mass ratioOrdered By: Kathie Lemos on 11-10-2024 Albumin/Globulin [Mass ratio] 0.7 {ratio} Low 0.9-2.4 [facility] Serum or plasma alkaline kendrick sphatase measurementOrdered By: Kathie Lemos on 11-10-2024 ALP [Catalytic activity/Vol] 310 U/L High 40-129 [facility] Serum or plasma calcium roosevelt urement (mass/volume)Ordered By: Kathie Lemos on 11-10-2024 Calcium [Mass/Vol] 9.2 mg/dL 7.6-11.0 [facility] Serum or plasma urea nitroge n measurement (mass/volume)Ordered By: Kathie Lemos on 11-10-2024 Urea nitrogen [Mass/Vol] 19 mg/dL - [facility] Sodium levelOrdered By: Javed Lemos on 11-10-2024 Sodium [Moles/Vol] 123 mmol/L Low 133-145 [facility] Sodium level 123 mmol/L Low 133-145 [facility] Specific gravity (U) [Rel de nsity]Ordered By: Kathie Lemos on 11-10-2024 Urine specific gravity measurement 1.015 1.002-1.030 [facility] Squamous epithelial cells de tection in urine sediment by light microscopyOrdered By: Kathie Lemos on 11-10-2024 Epithelial cells.squamous LM Ql (Urine sed) 0 SEEN /hpf 0-5 [facility] Squamous epithelial cells detection in urine sediment by light microscopy 0 SEEN /hpf [facility] Total proteinOrdered By: Tyree Lemos on 11-10-2024 Protein [Mass/Vol] 5.7 g/dL Low 5.9-8.4 [facility] Total protein 5.7 g/dL Low 5.9-8.4 [facility] Urea nitrogen [Mass/Vol]Orde red By: Kathie Lemos on 11-10-2024 Serum or plasma urea nitrogen measurement (mass/volume) 19 mg/dL 4-19 [facility] Urinalysis, Completeon 11-10 BACTERIA 2+ /hpf Normal None Seen [facility] Comment on above: Order Comment: COLOR OF URINE MAY AFFECT DIPSTICK RESULTS.CLEAN CATCH Performed By: #### L 400.0001 ####[facility] [address] [place], [address] WBC 5-10 SEEN Normal 0-5 [facility] Comment on above: Order Comment: COLOR OF URINE MAY AFFECT DIPSTICK RESULTS.CLEAN CATCH Performed By: #### L 400.0001 ####[facility] [address] [place], [address] RBC > 100 SEEN Normal 0-5 [facility] Comment on above: Order Comment: COLOR OF URINE MAY AFFECT DIPSTICK RESULTS.CLEAN CATCH Performed By: #### L 400.0001 ####[facility] [address] [place], [address] EPI,SQUAMOUS 0 SEEN Normal 0-[address] [place] [address] Comment on above: Order Comment: COLOR OF URINE MAY AFFECT DIPSTICK RESULTS.CLEAN CATCH Performed By: #### L 400.0001 ####[facility] [address] [place], [address] Mucus Ql (Urine sed) 0 SEEN Normal [facility] Comment on above: Order Comment: COLOR OF URINE MAY AFFECT DIPSTICK RESULTS.CLEAN CATCH Performed By: #### L 400.0001 ####[facility] [address] [place], [address] Urine blood detectionOrdered By: Kathie Lemos on 11-10-2024 Urine blood detection 250 /ul High Negative [facility] Urine clarityOrdered By: Tyree Lemos on 11-10-2024 Clarity (U) Turbid Clear [facility] Urine color determinationOrd ered By: Kathie Lemos on 11-10-2024 Color (U) Brown Yellow [facility] Urine glucose detectionOrder ed By: Kathie Lemos on 11-10-2024 Glucose Ql (U) Normal mg/dl Normal [facility] Urine leukocyte esterase det ection by dipstickOrdered By: Kathie Lemos on 11-10-2024 Leukocyte esterase Test strip Ql (U) 500 /ul High Negative [facility] Urine pHOrdered By: Kathie garcias on 11-10-2024 pH (U) 6.5 [pH] 5.0 - 8.0 [facility] Urine sediment bacteria coun t by microscopy (number/high power field)Ordered By: Kathie Lemos on 11-10-2024 Bacteria LM.HPF (Urine sed) [#/Area] 2 /[HPF] None Seen [facility] Urine specific gravity measu rementOrdered By: Kathie Lemos on 11-10-2024 Specific gravity (U) [Rel density] 1.015 1.002-1.030 [facility] Urine urobilinogen measureme ntOrdered By: Kathie Lemos on 11-10-2024 Urobilinogen Ql (U) 1 mg/dl High Normal [facility] Urobilinogen Ql (U)Ordered B y: Kathie Lemos on 11-10-2024 Urine urobilinogen measurement 1 mg/dl High Normal [facility] White blood cell (WBC) count Ordered By: Kathie Lemos on 11-10-2024 WBC (Bld) [#/Vol] 19.6 10*3/uL High 4.4-11.0 [facility] White blood cell (WBC) count 19.6 K/mm3 High 4.4-11.0 [facility] White blood cell countOrdere d By: Kathie Lemos on 11-10-2024 White blood cell count 5-10 SEEN /hpf 0-5 [facility] White blood cell count 5-10 SEEN /hpf 0-5 [facility] pH (U)Ordered By: Kathie aguilar on 11-10-2024 Urine pH 6.5 5.0 - 8.0 [facility] Abdomen Single View (Portabl e)on 11-09-2024 Abdomen Single View (Portable) Normal [facility] Abdomen/Pelvis W IV Cont ONL Yon 11-09-2024 Abdomen/Pelvis W IV Cont ONLY Normal [facility] Ammoniaon 11-09-2024 Ammonia (P) [Moles/Vol] 104.0 umol/L High 16-60 [facility] Comment on above: Performed By: #### L 300.3900, L503.5510, L500.2500, L100.0100 ####[facility] [address] [place], [address] Basic Metabolic Profile (BMP )on 11-09-2024 BUN/CRE 16.6 RATIO Normal 10-20 [facility] Comment on above: Performed By: #### L 300.3900, L503.5510, L500.2500, L100.0100 ####[facility] [address] [place], [address] Calcium [Mass/Vol] 8.8 mg/dL Normal 7.6-11.0 [facility] Comment on above: Performed By: #### L 300.3900, L503.5510, L500.2500, L100.0100 ####[facility] [address] [place], [address] Chloride [Moles/Vol] 102 mmol/L Normal 98-108 [facility] Comment on above: Performed By: #### L 300.3900, L503.5510, L500.2500, L100.0100 ####[facility] [address] [place], [address] CO2 [Moles/Vol] 12.2 mmol/L Low 21.0-32.0 [facility] Comment on above: Performed By: #### L 300.3900, L503.5510, L500.2500, L100.0100 ####[facility] [address] [place], [address] Creatinine [Mass/Vol] 1.13 mg/dL Normal 0.70-1.20 [facility] Comment on above: Performed By: #### L 300.3900, L503.5510, L500.2500, L100.0100 ####[facility] [address] [place], [address] ECRCL 88.15 ml/min Normal 50-250 [facility] Comment on above: Performed By: #### L 300.3900, L503.5510, L500.2500, L100.0100 ####[facility] [address] [place], [address] GAP 10 Normal 5-15 [facility] Comment on above: Performed By: #### L 300.3900, L503.5510, L500.2500, L100.0100 ####[facility] [address] [place], [address] GFR/1.73 sq M.predicted among non-blacks MDRD (S/P/Bld) [Vol rate/Area] 75 mL/min/{1.73_m2} Normal >60 [facility] Comment on above: Result Comment: mL/m in/1.73m2 CKD-EPI Creatinine Equation (2020) Performed By: #### L 300.3900, L503.5510, L500.2500, L100.0100 ####[facility] [address] [place], [address] Glucose [Mass/Vol] 284 mg/dL High 70-99 [facility] Comment on above: Performed By: #### L 300.3900, L503.5510, L500.2500, L100.0100 ####[facility] [address] [place], [address] Potassium [Moles/Vol] 3.7 mmol/L Normal 3.3-5.1 [facility] Comment on above: Performed By: #### L 300.3900, L503.5510, L500.2500, L100.0100 ####[facility] [address] [place], [address] Sodium [Moles/Vol] 125 mmol/L Low 133-145 [facility] Comment on above: Performed By: #### L 300.3900, L503.5510, L500.2500, L100.0100 ####[facility] [address] [place], [address] Urea nitrogen [Mass/Vol] 19 mg/dL Normal 4-19 [facility] Comment on above: Performed By: #### L 300.3900, L503.5510, L500.2500, L100.0100 ####[facility] [address] [place], [address] BUN Normal 4-19 [facility] Comment on above: Result Comment: Canc elled via OM: MD Ordered Performed By: #### L 500.2500, L100.0500 ####[facility] [address] [place], [address] BUN/CRE Normal 10-20 [facility] Comment on above: Result Comment: Canc elled via OM: MD Ordered Performed By: #### L 500.2500, L100.0500 ####[facility] [address] [place], [address] Calcium Normal 7.6-11.0 [facility] Comment on above: Result Comment: Canc elled via OM: MD Ordered Performed By: #### L 500.2500, L100.0500 ####[facility] [address] [place], [address] CL Normal 98-108 [facility] Comment on above: Result Comment: Canc elled via OM: MD Ordered Performed By: #### L 500.2500, L100.0500 ####[facility] [address] [place], [address] CO2 Normal 21.0-32.0 [facility] Comment on above: Result Comment: Canc elled via OM: MD Ordered Performed By: #### L 500.2500, L100.0500 ####[facility] [address] [place], [address] CREAT,SERUM Normal 0.70-1.20 [facility] Comment on above: Result Comment: Canc elled via OM: MD Ordered Performed By: #### L 500.2500, L100.0500 ####[facility] [address] [place], [address] eGFR Normal >60 [facility] Comment on above: Result Comment: Canc elled via OM: MD Ordered Performed By: #### L 500.2500, L100.0500 ####[facility] [address] [place], [address] GAP Normal 5-15 [facility] Comment on above: Result Comment: Canc elled via OM: MD Ordered Performed By: #### L 500.2500, L100.0500 ####[facility] [address] [place], [address] GLU Normal 70-99 [facility] Comment on above: Result Comment: Canc elled via OM: MD Ordered Performed By: #### L 500.2500, L100.0500 ####[facility] [address] [place], [address] Potassium Normal 3.3-5.1 [facility] Comment on above: Result Comment: Canc elled via OM: MD Ordered Performed By: #### L 500.2500, L100.0500 ####[facility] [address] [place], [address] Basic Metabolic Profile (BMP) Normal 133-145 [facility] Comment on above: Result Comment: Canc elled via OM: MD Ordered Performed By: #### L 500.2500, L100.0500 ####[facility] [address] [place], [address] Bedside Glucoseon 11-09-2024 FINGERSTICK GLU 287 mg/dL High 74-106 [facility] Comment on above: Result Comment: BRISA GEMENT OF PATIENT CARE PER NURSING PROTOCOL Performed By: #### L 501.080 ####[facility] [address] [place], [address] FINGERSTICK GLU 250 mg/dL High 74-106 [facility] Comment on above: Result Comment: BRISA GEMENT OF PATIENT CARE PER NURSING PROTOCOL Performed By: #### L 501.080 ####[facility] [address] [place], [address] FINGERSTICK GLU 392 mg/dL High 74-106 [facility] Comment on above: Result Comment: BRISA GEMENT OF PATIENT CARE PER NURSING PROTOCOL Performed By: #### L 501.080 ####[facility] [address] [place], [address] FINGERSTICK GLU 283 mg/dL High -106 [facility] Comment on above: Result Comment: BRISA GEMENT OF PATIENT CARE PER NURSING PROTOCOL Performed By: #### L 501.080 ####[facility] [address] [place], [address] Blood manual differential co mment interpretation (narrative result)Ordered By: Kathie Lemos on 11-09-2024 Manual differential comment Marco Antonio (Bld) [Interp] SCANNED [facility] CBC W/Diff, Automatedon 04-0 PATH REV N/A Normal [facility] Comment on above: Result Comment: AMENDED REPORT 11/09/24 0753 PATH REV previously reported as: December tai Performed By: #### L 300.3900, L503.5510, L500.2500, L100.0100 ####[facility] [address] [place], [address] CBC-Complete Blood Cnt No Di ffon 11-09-2024 HCT Normal 40-54 [facility] Comment on above: Result Comment: Canc elljustin via OM: MD Ordered Performed By: #### L 500.2500, L100.0500 ####[facility] [address] [place], [address] HGB Normal 13.0-16.5 [facility] Comment on above: Result Comment: Canc elled via OM: MD Ordered Performed By: #### L 500.2500, L100.0500 ####[facility] [address] [place], [address] MCH Normal 27.0-32.0 [facility] Comment on above: Result Comment: Canc elled via OM: MD Ordered Performed By: #### L 500.2500, L100.0500 ####[facility] [address] [place], [address] MCHC Normal 32-36 [facility] Comment on above: Result Comment: Canc elled via OM: MD Ordered Performed By: #### L 500.2500, L100.0500 ####[facility] [address] [place], [address] MCV Normal 80-94 [facility] Comment on above: Result Comment: Canc elled via OM: MD Ordered Performed By: #### L 500.2500, L100.0500 ####[facility] [address] [place], [address] PLT Normal 150-450 [facility] Comment on above: Result Comment: Canc elled via OM: MD Ordered Performed By: #### L 500.2500, L100.0500 ####[facility] [address] [place], [address] RBC Normal 4.6-6.2 [facility] Comment on above: Result Comment: Canc elled via OM: MD Ordered Performed By: #### L 500.2500, L100.0500 ####[facility] [address] [place], [address] RDW CV Normal 11.6-14.6 [facility] Comment on above: Result Comment: Canc elled via OM: MD Ordered Performed By: #### L 500.2500, L100.0500 ####[facility] [address] [place], [address] RDW SD Normal 35.1-43.9 [facility] Comment on above: Result Comment: Canc elled via OM: MD Ordered Performed By: #### L 500.2500, L100.0500 ####[facility] [address] [place], [address] WBC Normal 4.4-11.0 [facility] Comment on above: Result Comment: Canc elled via OM: MD Ordered Performed By: #### L 500.2500, L100.0500 ####[facility] [address] [place], [address] Lactic Acidon 11-09-2024 Lactate [Moles/Vol] 2.4 mmol/L Invalid Interpretation Code 0.0-2.0 [facility] Comment on above: Result Comment: Crit ical Result(s) Called at:0644 by:??NOREEN ROMAN Results read back by same. Performed By: #### L 503.6005 ####[facility] [address] [place], [address] Lactic acid measurementOrder ed By: Kathie Lemos on 11-09-2024 Lactic acid measurement 2.4 mmol/L High 0.0-2.0 [facility] Manual differential comment Marco Antonio (Bld) [Interp]Ordered By: Kathie Lemos on 11-09-2024 Blood manual differential comment interpretation (narrative result) SCANNED [facility] Pathologist review Marco Antonio (Unsp spec) [Interp]Ordered By: Kathie Lemos on 11-09-2024 Review by pathologist N/A [facility] Platelet estimateOrdered By: Kathie Lemos on 11-09-2024 Platelets LM Ql (Bld) MKD DEC ADEQ [facility] Platelets LM Ql (Bld)Ordered By: Kathie Lemos on 11-09-2024 Platelet estimate MKD DEC ADEQ [facility] Prothrombin Time w/INRon INR Coag (PPP) [Relative time] 2.9 {INR} Normal [facility] Comment on above: Performed By: #### L 300.3900, L503.5510, L500.2500, L100.0100 ####[facility] [address] [place], [address] PT Coag (PPP) [Time] 31.1 s High 11.7-14.9 [facility] Comment on above: Performed By: #### L 300.3900, L503.5510, L500.2500, L100.0100 ####[facility] [address] [place], [address] Review by pathologistOrdered By: Kathie Lemos on 11-09-2024 Pathologist review Marco Antonio (Unsp spec) [Interp] N/A [facility] Venous blood ammonia measure mentOrdered By: Kathie Lemos on 11-09-2024 Ammonia (P) [Moles/Vol] 104.0 umol/L High 16-60 [facility] Venous blood ammonia measurement 104.0 umol/L High 16-60 [facility] Basic Metabolic Profile (BMP )on 11-08-2024 BUN/CRE 16.8 RATIO Normal 10-20 [facility] Comment on above: Performed By: #### L 500.2500, L501.2300, L501.5200, L501.2450, L503.6005 ####[facility] [address] [place], [address] Calcium [Mass/Vol] 9.1 mg/dL Normal 7.6-11.0 [facility] Comment on above: Performed By: #### L 500.2500, L501.2300, L501.5200, L501.2450, L503.6005 ####[facility] [address] [place], [address] Chloride [Moles/Vol] 99 mmol/L Normal 98-108 [facility] Comment on above: Performed By: #### L 500.2500, L501.2300, L501.5200, L501.2450, L503.6005 ####[facility] [address] [place], [address] CO2 [Moles/Vol] 14.8 mmol/L Low 21.0-32.0 [facility] Comment on above: Performed By: #### L 500.2500, L501.2300, L501.5200, L501.2450, L503.6005 ####[facility] [address] [place], [address] Creatinine [Mass/Vol] 1.16 mg/dL Normal 0.70-1.20 [facility] Comment on above: Performed By: #### L 500.2500, L501.2300, L501.5200, L501.2450, L503.6005 ####[facility] [address] [place], [address] ECRCL 85.99 ml/min Normal 50-250 [facility] Comment on above: Performed By: #### L 500.2500, L501.2300, L501.5200, L501.2450, L503.6005 ####[facility] [address] [place], [address] GAP 10 Normal 5-15 [facility] Comment on above: Performed By: #### L 500.2500, L501.2300, L501.5200, L501.2450, L503.6005 ####[facility] [address] [place], [address] GFR/1.73 sq M.predicted among non-blacks MDRD (S/P/Bld) [Vol rate/Area] 73 mL/min/{1.73_m2} Normal >60 [facility] Comment on above: Result Comment: mL/m in/1.73m2 CKD-EPI Creatinine Equation (2020) Performed By: #### L 500.2500, L501.2300, L501.5200, L501.2450, L503.6005 ####[facility] [address] [place], [address] Glucose [Mass/Vol] 376 mg/dL High 70-99 [facility] Comment on above: Performed By: #### L 500.2500, L501.2300, L501.5200, L501.2450, L503.6005 ####[facility] [address] [place], [address] Potassium [Moles/Vol] 3.5 mmol/L Normal 3.3-5.1 [facility] Comment on above: Performed By: #### L 500.2500, L501.2300, L501.5200, L501.2450, L503.6005 ####[facility] [address] [place], [address] Sodium [Moles/Vol] 124 mmol/L Low 133-145 [facility] Comment on above: Performed By: #### L 500.2500, L501.2300, L501.5200, L501.2450, L503.6005 ####[facility] [address] [place], [address] Urea nitrogen [Mass/Vol] 20 mg/dL High 4-19 [facility] Comment on above: Performed By: #### L 500.2500, L501.2300, L501.5200, L501.2450, L503.6005 ####[facility] [address] [place], [address] BUN/CRE 15.9 RATIO Normal 10-20 [facility] Comment on above: Performed By: #### L 100.0500, L500.2500 ####[facility] [address], [address] Calcium [Mass/Vol] 9.1 mg/dL Normal 7.6-11.0 [facility] Comment on above: Performed By: #### L 100.0500, L500.2500 ####[facility] [address] [place], [address] Chloride [Moles/Vol] 102 mmol/L Normal 98-108 [facility] Comment on above: Performed By: #### L 100.0500, L500.2500 ####[facility] [address] [place], [address] CO2 [Moles/Vol] 13.4 mmol/L Low 21.0-32.0 [facility] Comment on above: Performed By: #### L 100.0500, L500.2500 ####[facility] [address] [place], [address] Creatinine [Mass/Vol] 1.26 mg/dL High 0.70-1.20 [facility] Comment on above: Performed By: #### L 100.0500, L500.2500 ####[facility] [address] [place], [address] ECRCL 79.16 ml/min Normal 50-250 [facility] Comment on above: Performed By: #### L 100.0500, L500.2500 ####[facility] [address] [place], [address] GAP 11 Normal 5-15 [facility] Comment on above: Performed By: #### L 100.0500, L500.2500 ####[facility] [address] [place], [address] GFR/1.73 sq M.predicted among non-blacks MDRD (S/P/Bld) [Vol rate/Area] 66 mL/min/{1.73_m2} Normal >60 [facility] Comment on above: Result Comment: mL/m in/1.73m2 CKD-EPI Creatinine Equation (2020) Performed By: #### L 100.0500, L500.2500 ####[facility] [address] [place], [address] Glucose [Mass/Vol] 349 mg/dL High 70-99 [facility] Comment on above: Performed By: #### L 100.0500, L500.2500 ####[facility] [address] [place], [address] Potassium [Moles/Vol] 3.6 mmol/L Normal 3.3-5.1 [facility] Comment on above: Performed By: #### L 100.0500, L500.2500 ####[facility] [address] [place], [address] Sodium [Moles/Vol] 126 mmol/L Low 133-145 [facility] Comment on above: Performed By: #### L 100.0500, L500.2500 ####[facility] [address] [place], [address] Urea nitrogen [Mass/Vol] 20 mg/dL High 4-19 [facility] Comment on above: Performed By: #### L 100.0500, L500.2500 ####[facility] [address] [place], [address] Bedside Glucoseon 11-08-2024 FINGERSTICK GLU 327 mg/dL High 74-106 [facility] Comment on above: Result Comment: BRISA GEMENT OF PATIENT CARE PER NURSING PROTOCOL Performed By: #### L 501.080 ####[facility] [address] [place], [address] FINGERSTICK GLU 317 mg/dL High 74-106 [facility] Comment on above: Result Comment: BRISA GEMENT OF PATIENT CARE PER NURSING PROTOCOL Performed By: #### L 501.080 ####[facility] [address] [place], [address] FINGERSTICK GLU 322 mg/dL High 74-106 [facility] Comment on above: Result Comment: BRISA GEMENT OF PATIENT CARE PER NURSING PROTOCOL Performed By: #### L 501.080 ####[facility] [address] [place], [address] FINGERSTICK GLU 297 mg/dL High 74-106 [facility] Comment on above: Result Comment: BRISA GEMENT OF PATIENT CARE PER NURSING PROTOCOL Performed By: #### L 501.080 ####[facility] [address] [place], [address] FINGERSTICK GLU 289 mg/dL High 74-106 [facility] Comment on above: Result Comment: BRISA GEMENT OF PATIENT CARE PER NURSING PROTOCOL Performed By: #### L 501.080 ####[facility] [address] [place], [address] Lactic Acidon 11-08-2024 Lactate [Moles/Vol] 3.1 mmol/L Invalid Interpretation Code 0.0-2.0 [facility] Comment on above: Order Comment: Y Result Comment: Crit ical Result(s) Called at:2349 by: NOREEN DANGELO??Results read back by same. Performed By: #### L 503.6005 ####[facility] [address] [place], [address] Lactate [Moles/Vol] 3.6 mmol/L Invalid Interpretation Code 0.0-2.0 [facility] Comment on above: Result Comment: Crit ical Result(s) Called at: 2037 by: SHKIHA ELDER??Results read back by same. Performed By: #### L 503.6005 ####[facility] [address] [place], [address] Lactate [Moles/Vol] 4.1 mmol/L Invalid Interpretation Code 0.0-2.0 [facility] Comment on above: Order Comment: Y Result [...] #### L 500.2500, L501.2300, L501.5200, L501.2450, L503.6005 ####[facility] [address] [place], [place], [address] Lipaseon 11-08-2024 Lipase [Catalytic activity/Vol] 94 U/L High 13-75 [facility] Comment on above: Result Comment: Siddhartha bhat note:LIPASE revised reference range effective 22.New Lipase methodology. Expected to produce lower valuesthan the previous assay method.NEW Reference Range: 13 - 75 U/L Performed By: #### L 500.2500, L501.2300, L501.5200, L501.2450, L503.6005 ####[facility] [address] [place], [place], [address] Lipase measurementOrdered By : Kathie Lemos on 11-08-2024 Lipase measurement 94 U/L High 13-75 [facility] Magnesiumon 11-08-2024 Magnesium [Mass/Vol] 2.4 mg/dL High 1.5-2.2 [facility] Comment on above: Performed By: #### L 500.2500, L501.2300, L501.5200, L501.2450, L503.6005 ####[facility] [address] [place], [place], [address] Magnesium (Unsp spec) [Mass/ Vol]Ordered By: Kathie Lemos on 11-08-2024 Magnesium measurement (mass/volume) 2.4 mg/dL High 1.5-2.2 [facility] Magnesium measurement (mass/ volume)Ordered By: Kathie Lemos on 11-08-2024 Magnesium (Unsp spec) [Mass/Vol] 2.4 mg/dL High 1.5-2.2 [facility] Phosphoruson 11-08-2024 Phosphate [Mass/Vol] 1.6 mg/dL Low 2.7-4.5 [facility] Comment on above: Performed By: #### L 500.2500, L501.2300, L501.5200, L501.2450, L503.6005 ####[facility] [address] [place], [address] Serum phosphorus measurement Ordered By: Kathie Lemos on 11-08-2024 Serum phosphorus measurement 1.6 mg/dL Low 2.7-4.5 [facility] Bedside Glucoseon 11-07-2024 FINGERSTICK GLU 281 mg/dL High 74-106 [facility] Comment on above: Result Comment: BRISA GEMENT OF PATIENT CARE PER NURSING PROTOCOL Performed By: #### L 501.080 ####[facility] [address] [place], [address] FINGERSTICK GLU 255 mg/dL High 74-106 [facility] Comment on above: Result Comment: BRISA GEMENT OF PATIENT CARE PER NURSING PROTOCOL Performed By: #### L 501.080 ####[facility] [address] [place], [address] FINGERSTICK GLU 286 mg/dL High -106 [facility] Comment on above: Result Comment: BRISA GEMENT OF PATIENT CARE PER NURSING PROTOCOL Performed By: #### L 501.080 ####[facility] [address] [place], [address] FINGERSTICK GLU 312 mg/dL High 74-106 [facility] Comment on above: Result Comment: BRISA GEMENT OF PATIENT CARE PER NURSING PROTOCOL Performed By: #### L 501.080 ####[facility] [address] [place], [address] Blood polychromasia detectio n by light microscopyOrdered By: Hill Acuña on 11-07-2024 Polychromasia LM Ql (Bld) 1+ [facility] Blood polychromasia detection by light microscopy 1+ [facility] CBC W/Diff, Automatedon 04-0 PATH REV N/A Normal [facility] Comment on above: Result Comment: AMENDED REPORT 11/07/24 1610 PATH REV previously reported as: May foll Performed By: #### L 500.4050, L100.0100 ####[facility] [address] [place], [address] PATH REV N/A Normal [facility] Comment on above: Result Comment: AMENDED REPORT 11/07/24 1424 PATH REV previously reported as: May foll Performed By: #### L 100.0100, L500.4050 ####[facility] [address] [place], [address] Anisocytosis Ql (Bld) 1+ Normal [facility] Comment on above: Performed By: #### L 500.4050, L501.5200, L501.2300, L100.0100 ####[facility] [address] [place], [address] OVALOCYTE 1+ Normal [facility] Comment on above: Performed By: #### L 500.4050, L501.5200, L501.2300, L100.0100 ####[facility] [address] [place], [address] PLT EST MOD DEC Normal ADEQ [facility] Comment on above: Performed By: #### L 500.4050, L501.5200, L501.2300, L100.0100 ####[facility] [address] [place], [address] POLYCHROMASIA 1+ Normal [facility] Comment on above: Performed By: #### L 500.4050, L501.5200, L501.2300, L100.0100 ####[facility] [address] [place], [address] Comprehensive Metabolic Prof ilon 11-07-2024 Albumin [Mass/Vol] 2.5 g/dL Low 3.5-5.0 [facility] Comment on above: Performed By: #### L 500.4050, L501.5200, L501.2300, L100.0100 ####[facility] [address] [place], [address] Albumin/Globulin [Mass ratio] 0.8 {ratio} Low 0.9-2.4 [facility] Comment on above: Performed By: #### L 500.4050, L501.5200, L501.2300, L100.0100 ####[facility] [address] [place], [address] ALK PHOS 271 U/L High 40-129 [facility] Comment on above: Performed By: #### L 500.4050, L501.5200, L501.2300, L100.0100 ####[facility] [address] [place], [address] ALT [Catalytic activity/Vol] 29 U/L Normal <=46 [facility] Comment on above: Performed By: #### L 500.4050, L501.5200, L501.2300, L100.0100 ####[facility] [address] [place], [address] AST [Catalytic activity/Vol] 38 U/L Normal <=37 [facility] Comment on above: Performed By: #### L 500.4050, L501.5200, L501.2300, L100.0100 ####[facility] [address] [place], [address] Bilirubin [Mass/Vol] 3.03 mg/dL High 0.00-1.30 [facility] Comment on above: Performed By: #### L 500.4050, L501.5200, L501.2300, L100.0100 ####[facility] [address] [place], [address] BUN/CRE 16.5 RATIO Normal 10-20 [facility] Comment on above: Performed By: #### L 500.4050, L501.5200, L501.2300, L100.0100 ####[facility] [address] [place], [address] Calcium [Mass/Vol] 9.4 mg/dL Normal 7.6-11.0 [facility] Comment on above: Performed By: #### L 500.4050, L501.5200, L501.2300, L100.0100 ####[facility] [address] [place], [address] Chloride [Moles/Vol] 102 mmol/L Normal 98-108 [facility] Comment on above: Performed By: #### L 500.4050, L501.5200, L501.2300, L100.0100 ####[facility] [address] [place], [address] CO2 [Moles/Vol] 12.9 mmol/L Low 21.0-32.0 [facility] Comment on above: Performed By: #### L 500.4050, L501.5200, L501.2300, L100.0100 ####[facility] [address] [place], [address] Creatinine [Mass/Vol] 1.10 mg/dL Normal 0.70-1.20 [facility] Comment on above: Performed By: #### L 500.4050, L501.5200, L501.2300, L100.0100 ####[facility] [address] [place], [address] ECRCL 89.64 ml/min Normal 50-250 [facility] Comment on above: Performed By: #### L 500.4050, L501.5200, L501.2300, L100.0100 ####[facility] [address] [place], [address] GAP 11 Normal 5-15 [facility] Comment on above: Performed By: #### L 500.4050, L501.5200, L501.2300, L100.0100 ####[facility] [address] [place], [address] GFR/1.73 sq M.predicted among non-blacks MDRD (S/P/Bld) [Vol rate/Area] 78 mL/min/{1.73_m2} Normal >60 [facility] Comment on above: Result Comment: mL/m in/1.73m2 CKD-EPI Creatinine Equation (2020) Performed By: #### L 500.4050, L501.5200, L501.2300, L100.0100 ####[facility] [address] [place], [address] Globulin (S) [Mass/Vol] 3.1 g/dL Normal 2.2-4.2 [facility] Comment on above: Performed By: #### L 500.4050, L501.5200, L501.2300, L100.0100 ####[facility] [address] [place], [address] Glucose [Mass/Vol] 286 mg/dL High 70-99 [facility] Comment on above: Performed By: #### L 500.4050, L501.5200, L501.2300, L100.0100 ####[facility] [address] [place], [address] Potassium [Moles/Vol] 3.6 mmol/L Normal 3.3-5.1 [facility] Comment on above: Performed By: #### L 500.4050, L501.5200, L501.2300, L100.0100 ####[facility] [address] [place], [address] Sodium [Moles/Vol] 127 mmol/L Low 133-145 [facility] Comment on above: Performed By: #### L 500.4050, L501.5200, L501.2300, L100.0100 ####[facility] [address] [place], [address] T PROT 5.6 g/dL Low 5.9-8.4 [facility] Comment on above: Performed By: #### L 500.4050, L501.5200, L501.2300, L100.0100 ####[facility] [address] [place], [address] Urea nitrogen [Mass/Vol] 18 mg/dL Normal 4-19 [facility] Comment on above: Performed By: #### L 500.4050, L501.5200, L501.2300, L100.0100 ####[facility] [address] [place], [address] Magnesiumon 11-07-2024 Magnesium [Mass/Vol] 2.3 mg/dL High 1.5-2.2 [facility] Comment on above: Performed By: #### L 500.4050, L501.5200, L501.2300, L100.0100 ####[facility] [address] [place], [address] Ovalocyte detectionOrdered B y: Hill Acuña on 11-07-2024 Ovalocytes LM Ql (Bld) 1+ [facility] Phosphoruson 11-07-2024 Phosphate [Mass/Vol] 1.7 mg/dL Low 2.7-4.5 [facility] Comment on above: Performed By: #### L 500.4050, L501.5200, L501.2300, L100.0100 ####[facility] [address] [place], [address] Ammoniaon 11-06-2024 Ammonia (P) [Moles/Vol] 93.5 umol/L High 16-60 [facility] Comment on above: Performed By: #### L 503.5510 ####[facility] [address] [place], [address] Bedside Glucoseon 11-06-2024 FINGERSTICK GLU 288 mg/dL High 74-106 [facility] Comment on above: Result Comment: BRISA GEMENT OF PATIENT CARE PER NURSING PROTOCOL Performed By: #### L 501.080 ####[facility] [address] [place], [address] FINGERSTICK GLU 276 mg/dL High 74-106 [facility] Comment on above: Result Comment: BRISA GEMENT OF PATIENT CARE PER NURSING PROTOCOL Performed By: #### L 501.080 ####[facility] [address] [place], [address] FINGERSTICK GLU 278 mg/dL High 74-106 [facility] Comment on above: Result Comment: BRISA GEMENT OF PATIENT CARE PER NURSING PROTOCOL Performed By: #### L 501.080 ####[facility] [address] [place], [address] FINGERSTICK GLU 292 mg/dL High 74-106 [facility] Comment on above: Result Comment: BRISA GEMENT OF PATIENT CARE PER NURSING PROTOCOL Performed By: #### L 501.080 ####[facility] [address] [place], [address] CBC W/Diff, Automatedon 04-0 PLT EST MOD DEC Normal ADEQ [facility] Comment on above: Performed By: #### L 500.4050, L100.0100 ####[facility] [address] [place], [address] Comprehensive Metabolic Prof ilon 11-06-2024 Albumin [Mass/Vol] 2.4 g/dL Low 3.5-5.0 [facility] Comment on above: Performed By: #### L 500.4050, L100.0100 ####[facility] [address] [place], [address] Albumin/Globulin [Mass ratio] 0.8 {ratio} Low 0.9-2.4 [facility] Comment on above: Performed By: #### L 500.4050, L100.0100 ####[facility] [address] [place], [address] ALK PHOS 244 U/L High 40-129 [facility] Comment on above: Performed By: #### L 500.4050, L100.0100 ####[facility] [address] [place], [address] ALT [Catalytic activity/Vol] 29 U/L Normal <=46 [facility] Comment on above: Performed By: #### L 500.4050, L100.0100 ####[facility] [address] [place], [address] AST [Catalytic activity/Vol] 32 U/L Normal <=37 [facility] Comment on above: Performed By: #### L 500.4050, L100.0100 ####[facility] [address] [place], [address] Bilirubin [Mass/Vol] 2.22 mg/dL High 0.00-1.30 [facility] Comment on above: Performed By: #### L 500.4050, L100.0100 ####[facility] [address] [place], [address] BUN/CRE 17.8 RATIO Normal 10-20 [facility] Comment on above: Performed By: #### L 500.4050, L100.0100 ####[facility] [address] [place], [address] Calcium [Mass/Vol] 9.8 mg/dL Normal 7.6-11.0 [facility] Comment on above: Performed By: #### L 500.4050, L100.0100 ####[facility] [address] [place], [address] Chloride [Moles/Vol] 103 mmol/L Normal 98-108 [facility] Comment on above: Performed By: #### L 500.4050, L100.0100 ####[facility] [address] [place], [address] CO2 [Moles/Vol] 14.9 mmol/L Low 21.0-32.0 [facility] Comment on above: Performed By: #### L 500.4050, L100.0100 ####[facility] [address] [place], [address] Creatinine [Mass/Vol] 1.04 mg/dL Normal 0.70-1.20 [facility] Comment on above: Performed By: #### L 500.4050, L100.0100 ####[facility] [address] [place], [address] ECRCL 93.54 ml/min Normal 50-250 [facility] Comment on above: Performed By: #### L 500.4050, L100.0100 ####[facility] [address] [place], [address] GAP 11 Normal 5-15 [facility] Comment on above: Performed By: #### L 500.4050, L100.0100 ####[facility] [address] [place], [address] GFR/1.73 sq M.predicted among non-blacks MDRD (S/P/Bld) [Vol rate/Area] 83 mL/min/{1.73_m2} Normal >60 [facility] Comment on above: Result Comment: mL/m in/1.73m2 CKD-EPI Creatinine Equation (2020) Performed By: #### L 500.4050, L100.0100 ####[facility] [address] [place], [address] Globulin (S) [Mass/Vol] 3.1 g/dL Normal 2.2-4.2 [facility] Comment on above: Performed By: #### L 500.4050, L100.0100 ####[facility] [address] [place], [address] Glucose [Mass/Vol] 311 mg/dL High 70-99 [facility] Comment on above: Performed By: #### L 500.4050, L100.0100 ####[facility] [address] [place], [address] Potassium [Moles/Vol] 3.3 mmol/L Normal 3.3-5.1 [facility] Comment on above: Performed By: #### L 500.4050, L100.0100 ####[facility] [address] [place], [address] Sodium [Moles/Vol] 129 mmol/L Low 133-145 [facility] Comment on above: Performed By: #### L 500.4050, L100.0100 ####[facility] [address] [place], [address] T PROT 5.4 g/dL Low 5.9-8.4 [facility] Comment on above: Performed By: #### L 500.4050, L100.0100 ####[facility] [address] [place], [address] Urea nitrogen [Mass/Vol] 19 mg/dL Normal 4-19 [facility] Comment on above: Performed By: #### L 500.4050, L100.0100 ####[facility] [address] [place], [address] Ammoniaon 11-05-2024 Ammonia (P) [Moles/Vol] 99.8 umol/L High 16-60 [facility] Comment on above: Performed By: #### L 503.5510 ####[facility] [address] [place], [address] Bedside Glucoseon 11-05-2024 FINGERSTICK GLU 264 mg/dL High 74-106 [facility] Comment on above: Result Comment: BRISA GEMENT OF PATIENT CARE PER NURSING PROTOCOL Performed By: #### L 501.080 ####[facility] [address] [place], [address] FINGERSTICK GLU 253 mg/dL High 74-106 [facility] Comment on above: Result Comment: BRISA GEMENT OF PATIENT CARE PER NURSING PROTOCOL Performed By: #### L 501.080 ####[facility] [address] [place], [address] FINGERSTICK GLU 245 mg/dL High 74-106 [facility] Comment on above: Result Comment: BRISA GEMENT OF PATIENT CARE PER NURSING PROTOCOL Performed By: #### L 501.080 ####[facility] [address] [place], [address] FINGERSTICK GLU 269 mg/dL High 74-106 [facility] Comment on above: Result Comment: BRISA GEMENT OF PATIENT CARE PER NURSING PROTOCOL Performed By: #### L 501.080 ####[facility] [address] [place], [address] CBC W/Diff, Automatedon 04-0 PATH REV N/A Normal [facility] Comment on above: Result Comment: AMENDED REPORT 11/05/24 0835 PATH REV previously reported as: December Performed By: #### L 500.4050, L501.5200, L501.2300, L100.0100 ####[facility] [address] [place], [address] Anisocytosis Ql (Bld) 1+ Normal [facility] Comment on above: Performed By: #### L 100.0100, L500.4050 ####[facility] [address] [place], [address] PLT EST MKD DEC Normal ADEQ [facility] Comment on above: Performed By: #### L 100.0100, L500.4050 ####[facility] [address] [place], [address] POLYCHROMASIA 1+ Normal [facility] Comment on above: Performed By: #### L 100.0100, L500.4050 ####[facility] [address] [place], [address] Comprehensive Metabolic Prof ilon 11-05-2024 Bilirubin [Mass/Vol] 2.17 mg/dL High 0.00-1.30 [facility] Comment on above: Performed By: #### L 100.0100, L500.4050 ####[facility] [address] [place], [address] Ammoniaon 11-04-2024 Ammonia (P) [Moles/Vol] 92.2 umol/L High 16-60 [facility] Comment on above: Performed By: #### L 503.5510 ####[facility] [address] [place], [address] Bedside Glucoseon 11-04-2024 FINGERSTICK GLU 253 mg/dL High 74-106 [facility] Comment on above: Result Comment: BRISA MOROCHO OF PATIENT CARE PER NURSING PROTOCOL Performed By: #### L 501.080 ####[facility] [address] [place], [address] FINGERSTICK GLU 243 mg/dL High 74-106 [facility] Comment on above: Result Comment: BRISA GEMENT OF PATIENT CARE PER NURSING PROTOCOL Performed By: #### L 501.080 ####[facility] [address] [place], [address] FINGERSTICK GLU 248 mg/dL High 74-106 [facility] Comment on above: Result Comment: BRISA GEMENT OF PATIENT CARE PER NURSING PROTOCOL Performed By: #### L 501.080 ####[facility] [address] [place], [address] FINGERSTICK GLU 295 mg/dL High 74-106 [facility] Comment on above: Result Comment: BRISA GEMENT OF PATIENT CARE PER NURSING PROTOCOL Performed By: #### L 501.080 ####[facility] [address] [place], [address] Comprehensive Metabolic Prof ilon 11-04-2024 Albumin [Mass/Vol] 2.5 g/dL Low 3.5-5.0 [facility] Comment on above: Performed By: #### L 500.4050, L100.0100 ####[facility] [address] [place], [address] Albumin/Globulin [Mass ratio] 0.9 {ratio} Normal 0.9-2.4 [facility] Comment on above: Performed By: #### L 500.4050, L100.0100 ####[facility] [address] [place], [address] ALK PHOS 230 U/L High 40-129 [facility] Comment on above: Performed By: #### L 500.4050, L100.0100 ####[facility] [address] [place], [address] ALT [Catalytic activity/Vol] 33 U/L Normal <=46 [facility] Comment on above: Performed By: #### L 500.4050, L100.0100 ####[facility] [address] [place], [address] AST [Catalytic activity/Vol] 41 U/L High <=37 [facility] Comment on above: Performed By: #### L 500.4050, L100.0100 ####[facility] [address] [place], [address] Bilirubin [Mass/Vol] 2.25 mg/dL High 0.00-1.30 [facility] Comment on above: Performed By: #### L 500.4050, L100.0100 ####[facility] [address] [place], [address] BUN/CRE 18.6 RATIO Normal 10-20 [facility] Comment on above: Performed By: #### L 500.4050, L100.0100 ####[facility] [address] [place], [address] Calcium [Mass/Vol] 9.5 mg/dL Normal 7.6-11.0 [facility] Comment on above: Performed By: #### L 500.4050, L100.0100 ####[facility] [address] [place], [address] Chloride [Moles/Vol] 107 mmol/L Normal 98-108 [facility] Comment on above: Performed By: #### L 500.4050, L100.0100 ####[facility] [address] [place], [address] CO2 [Moles/Vol] 12.6 mmol/L Low 21.0-32.0 [facility] Comment on above: Performed By: #### L 500.4050, L100.0100 ####[facility] [address] [place], [address] Creatinine [Mass/Vol] 1.05 mg/dL Normal 0.70-1.20 [facility] Comment on above: Performed By: #### L 500.4050, L100.0100 ####[facility] [address] [place], [address] ECRCL 92.74 ml/min Normal 50-250 [facility] Comment on above: Performed By: #### L 500.4050, L100.0100 ####[facility] [address] [place], [address] GAP 12 Normal 5-15 [facility] Comment on above: Performed By: #### L 500.4050, L100.0100 ####[facility] [address] [place], [address] GFR/1.73 sq M.predicted among non-blacks MDRD (S/P/Bld) [Vol rate/Area] 82 mL/min/{1.73_m2} Normal >60 [facility] Comment on above: Result Comment: mL/m in/1.73m2 CKD-EPI Creatinine Equation (2020) Performed By: #### L 500.4050, L100.0100 ####[facility] [address] [place], [address] Globulin (S) [Mass/Vol] 2.9 g/dL Normal 2.2-4.2 [facility] Comment on above: Performed By: #### L 500.4050, L100.0100 ####[facility] [address] [place], [address] Glucose [Mass/Vol] 280 mg/dL High 70-99 [facility] Comment on above: Performed By: #### L 500.4050, L100.0100 ####[facility] [address] [place], [address] Potassium [Moles/Vol] 3.6 mmol/L Normal 3.3-5.1 [facility] Comment on above: Performed By: #### L 500.4050, L100.0100 ####[facility] [address] [place], [address] Sodium [Moles/Vol] 131 mmol/L Low 133-145 [facility] Comment on above: Performed By: #### L 500.4050, L100.0100 ####[facility] [address] [place], [address] T PROT 5.4 g/dL Low 5.9-8.4 [facility] Comment on above: Performed By: #### L 500.4050, L100.0100 ####[facility] [address] [place], [address] Urea nitrogen [Mass/Vol] 20 mg/dL High 4-19 [facility] Comment on above: Performed By: #### L 500.4050, L100.0100 ####[facility] [address] [place], [address] Ammoniaon 11-03-2024 Ammonia (P) [Moles/Vol] 63.5 umol/L High 16-60 [facility] Comment on above: Performed By: #### L 503.5510 ####[facility] [address] [place], [address] Band form neutrophils/100 WB C (Bld)Ordered By: Hill Acuña on 11-03-2024 Blood band neutrophil count as percentage of total leukocytes 6 % High 0-5 [facility] Bedside Glucoseon 11-03-2024 FINGERSTICK GLU 239 mg/dL High 74-106 [facility] Comment on above: Result Comment: BRISA MOROCHO OF PATIENT CARE PER NURSING PROTOCOL Performed By: #### L 501.080 ####[facility] [address] [place], [address] FINGERSTICK GLU 282 mg/dL High 74-106 [facility] Comment on above: Result Comment: BRISA GEMENT OF PATIENT CARE PER NURSING PROTOCOL Performed By: #### L 501.080 ####[facility] [address] [place], [address] FINGERSTICK GLU 262 mg/dL High 74-106 [facility] Comment on above: Result Comment: BRISA GEMENT OF PATIENT CARE PER NURSING PROTOCOL Performed By: #### L 501.080 ####[facility] [address] [place], [address] FINGERSTICK GLU 303 mg/dL High 74-106 [facility] Comment on above: Result Comment: BRISA GEMENT OF PATIENT CARE PER NURSING PROTOCOL Performed By: #### L 501.080 ####[facility] [address] [place], [address] Blood band neutrophil count as percentage of total leukocytesOrdered By: Hill Acuña on 11-03-2024 Band form neutrophils/100 WBC (Bld) 6 % High 0-5 [facility] Blood eosinophils/100 leukoc ytesOrdered By: Hill Acuña on 11-03-2024 Eosinophils/100 WBC (Bld) 1 % 0-5 [facility] Blood lymphocytes/100 leukoc ytesOrdered By: Hill Acuña on 11-03-2024 Lymphocytes/100 WBC (Bld) 2 % Low 19-41 [facility] Blood lymphocytes/100 leukocytes 2 % 0-10 [facility] Blood metamyelocytes/100 bri kocytesOrdered By: Hill Acuña on 11-03-2024 Metamyelocytes/100 WBC (Bld) 1 % 0-1 [facility] Blood metamyelocytes/100 leukocytes 1 % 0-5 [facility] Blood monocytes/100 leukocyt esOrdered By: Hill Acuña on 11-03-2024 Monocytes/100 WBC (Bld) 2 % 0-10 [facility] Blood segmented neutrophils/ 100 leukocytesOrdered By: Hill Acuña on 11-03-2024 Segmented neutrophils/100 WBC (Bld) 85 % High 47-70 [facility] Cells counted Molgen (Bld/Ti ss) [#]Ordered By: Hill Acuña on 11-03-2024 Total cell count 100 MANUAL DIFF [facility] Comprehensive Metabolic Prof ilon 11-03-2024 Albumin [Mass/Vol] 2.4 g/dL Low 3.5-5.0 [facility] Comment on above: Performed By: #### L 100.0100, L500.4050 ####[facility] [address] [place], [address] Albumin/Globulin [Mass ratio] 0.7 {ratio} Low 0.9-2.4 [facility] Comment on above: Performed By: #### L 100.0100, L500.4050 ####[facility] [address] [place], [address] ALK PHOS 249 U/L High 40-129 [facility] Comment on above: Performed By: #### L 100.0100, L500.4050 ####[facility] [address] [place], [address] ALT [Catalytic activity/Vol] 34 U/L Normal <=46 [facility] Comment on above: Performed By: #### L 100.0100, L500.4050 ####[facility] [address] [place], [address] AST [Catalytic activity/Vol] 54 U/L High <=37 [facility] Comment on above: Result Comment: Hemo lysis present, Results??could be affected.?? Performed By: #### L 100.0100, L500.4050 ####[facility] [address] [place], [address] Bilirubin [Mass/Vol] 1.86 mg/dL High 0.00-1.30 [facility] Comment on above: Performed By: #### L 100.0100, L500.4050 ####[facility] [address] [place], [address] BUN/CRE 17.7 RATIO Normal 10-20 [facility] Comment on above: Performed By: #### L 100.0100, L500.4050 ####[facility] [address] [place], [address] Calcium [Mass/Vol] 9.3 mg/dL Normal 7.6-11.0 [facility] Comment on above: Performed By: #### L 100.0100, L500.4050 ####[facility] [address] [place], [address] Chloride [Moles/Vol] 107 mmol/L Normal 98-108 [facility] Comment on above: Performed By: #### L 100.0100, L500.4050 ####[facility] [address] [place], [address] CO2 [Moles/Vol] 11.0 mmol/L Low 21.0-32.0 [facility] Comment on above: Performed By: #### L 100.0100, L500.4050 ####[facility] [address] [place], [address] Creatinine [Mass/Vol] 1.16 mg/dL Normal 0.70-1.20 [facility] Comment on above: Performed By: #### L 100.0100, L500.4050 ####[facility] [address] [place], [address] ECRCL 78.33 ml/min Normal 50-250 [facility] Comment on above: Performed By: #### L 100.0100, L500.4050 ####[facility] [address] [place], [address] GAP 12 Normal 5-15 [facility] Comment on above: Performed By: #### L 100.0100, L500.4050 ####[facility] [address] [place], [address] GFR/1.73 sq M.predicted among non-blacks MDRD (S/P/Bld) [Vol rate/Area] 73 mL/min/{1.73_m2} Normal >60 [facility] Comment on above: Result Comment: mL/m in/1.73m2 CKD-EPI Creatinine Equation (2020) Performed By: #### L 100.0100, L500.4050 ####[facility] [address] [place], [address] Globulin (S) [Mass/Vol] 3.3 g/dL Normal 2.2-4.2 [facility] Comment on above: Performed By: #### L 100.0100, L500.4050 ####[facility] [address], [address] Glucose [Mass/Vol] 288 mg/dL High 70-99 [facility] Comment on above: Performed By: #### L 100.0100, L500.4050 ####[facility] [address] [place], [address] Potassium [Moles/Vol] 3.7 mmol/L Normal 3.3-5.1 [facility] Comment on above: Result Comment: Hemo lysis present, Results??could be affected.?? Performed By: #### L 100.0100, L500.4050 ####[facility] [address] [place], [address] Sodium [Moles/Vol] 130 mmol/L Low 133-145 [facility] Comment on above: Performed By: #### L 100.0100, L500.4050 ####[facility] [address] [place], [address] T PROT 5.7 g/dL Low 5.9-8.4 [facility] Comment on above: Performed By: #### L 100.0100, L500.4050 ####[facility] [address] [place], [address] Urea nitrogen [Mass/Vol] 21 mg/dL High 4-19 [facility] Comment on above: Performed By: #### L 100.0100, L500.4050 ####[facility] [address] [place], [address] Culture, Blood (WB)on 2024 CUB Blood cultures x2, f rom two different sites No growth in 5 days. Normal [facility] Comment on above: Performed By: #### M 200.1000, M600.5000 ####[facility] [address] [place], [address] CUB No growth in 5 days. Normal [facility] Comment on above: Performed By: #### M 200.1000 ####[facility] [address] [place], [address] Ova and Parasites 8623on OP Normal [facility] Comment on above: Performed By: #### M 200.1000, M600.5000 ####[facility] [address] [place], [address] Segmented neutrophils/100 WB C (Bld)Ordered By: Hill Acuña on 11-03-2024 Blood segmented neutrophils/100 leukocytes 85 % High 47-70 [facility] Total cell countOrdered By: Hill Acuña on 11-03-2024 Cells counted Molgen (Bld/Tiss) [#] 100 MANUAL DIFF [facility] Bedside Glucoseon 11-02-2024 FINGERSTICK GLU 281 mg/dL High 74-106 [facility] Comment on above: Result Comment: BRISA MOROCHO OF PATIENT CARE PER NURSING PROTOCOL Performed By: #### L 501.080 ####[facility] [address] [place], [address] FINGERSTICK GLU 230 mg/dL High 74-106 [facility] Comment on above: Result Comment: BRISA GEMENT OF PATIENT CARE PER NURSING PROTOCOL Performed By: #### L 501.080 ####[facility] [address] [place], [address] FINGERSTICK GLU 180 mg/dL High 74-106 [facility] Comment on above: Result Comment: BRISA GEMENT OF PATIENT CARE PER NURSING PROTOCOL Performed By: #### L 501.080 ####[facility] [address] [place], [address] FINGERSTICK GLU 161 mg/dL High 74-106 [facility] Comment on above: Result Comment: BRISA GEMENT OF PATIENT CARE PER NURSING PROTOCOL Performed By: #### L 501.080 ####[facility] [address] [place], [address] Comprehensive Metabolic Prof [facility] 11-02-2024 Albumin [Mass/Vol] 2.3 g/dL Low 3.5-5.0 [facility] Comment on above: Performed By: #### L 500.4050, L501.5200, L501.2300, L100.0100 ####[facility] [address] [place], [address] Albumin/Globulin [Mass ratio] 0.7 {ratio} Low 0.9-2.4 [facility] Comment on above: Performed By: #### L 500.4050, L501.5200, L501.2300, L100.0100 ####[facility] [address] [place], [address] ALK PHOS 221 U/L High 40-129 [facility] Comment on above: Performed By: #### L 500.4050, L501.5200, L501.2300, L100.0100 ####[facility] [address] [place], [address] ALT [Catalytic activity/Vol] 29 U/L Normal <=46 [facility] Comment on above: Performed By: #### L 500.4050, L501.5200, L501.2300, L100.0100 ####[facility] [address] [place], [address] AST [Catalytic activity/Vol] 45 U/L High <=37 [facility] Comment on above: Performed By: #### L 500.4050, L501.5200, L501.2300, L100.0100 ####[facility] [address] [place], [address] Bilirubin [Mass/Vol] 2.06 mg/dL High 0.00-1.30 [facility] Comment on above: Performed By: #### L 500.4050, L501.5200, L501.2300, L100.0100 ####[facility] [address] [place], [address] BUN/CRE 22.0 RATIO High 10-20 [facility] Comment on above: Performed By: #### L 500.4050, L501.5200, L501.2300, L100.0100 ####[facility] [address] [place], [address] Calcium [Mass/Vol] 9.1 mg/dL Normal 7.6-11.0 [facility] Comment on above: Performed By: #### L 500.4050, L501.5200, L501.2300, L100.0100 ####[facility] [address] [place], [address] Chloride [Moles/Vol] 109 mmol/L High 98-108 [facility] Comment on above: Performed By: #### L 500.4050, L501.5200, L501.2300, L100.0100 ####[facility] [address] [place], [address] CO2 [Moles/Vol] 12.2 mmol/L Low 21.0-32.0 [facility] Comment on above: Performed By: #### L 500.4050, L501.5200, L501.2300, L100.0100 ####[facility] [address] [place], [address] Creatinine [Mass/Vol] 1.09 mg/dL Normal 0.70-1.20 [facility] Comment on above: Performed By: #### L 500.4050, L501.5200, L501.2300, L100.0100 ####[facility] [address] [place], [address] ECRCL 83.27 ml/min Normal 50-250 [facility] Comment on above: Performed By: #### L 500.4050, L501.5200, L501.2300, L100.0100 ####[facility] [address] [place], [address] GAP 11 Normal 5-15 [facility] Comment on above: Performed By: #### L 500.4050, L501.5200, L501.2300, L100.0100 ####[facility] [address] [place], [address] GFR/1.73 sq M.predicted among non-blacks MDRD (S/P/Bld) [Vol rate/Area] 79 mL/min/{1.73_m2} Normal >60 [facility] Comment on above: Result Comment: mL/m in/1.73m2 CKD-EPI Creatinine Equation (2020) Performed By: #### L 500.4050, L501.5200, L501.2300, L100.0100 ####[facility] [address] [place], [address] Globulin (S) [Mass/Vol] 3.1 g/dL Normal 2.2-4.2 [facility] Comment on above: Performed By: #### L 500.4050, L501.5200, L501.2300, L100.0100 ####[facility] [address] [place], [address] Glucose [Mass/Vol] 174 mg/dL High 70-99 [facility] Comment on above: Performed By: #### L 500.4050, L501.5200, L501.2300, L100.0100 ####[facility] [address] [place], [address] Potassium [Moles/Vol] 3.2 mmol/L Low 3.3-5.1 [facility] Comment on above: Result Comment: Hemo lysis present, Results??could be affected.?? Performed By: #### L 500.4050, L501.5200, L501.2300, L100.0100 ####[facility] [address] [place], [address] Sodium [Moles/Vol] 133 mmol/L Normal 133-145 [facility] Comment on above: Performed By: #### L 500.4050, L501.5200, L501.2300, L100.0100 ####[facility] [address] [place], [address] T PROT 5.4 g/dL Low 5.9-8.4 [facility] Comment on above: Performed By: #### L 500.4050, L501.5200, L501.2300, L100.0100 ####[facility] [address] [place], [address] Urea nitrogen [Mass/Vol] 24 mg/dL High 4-19 [facility] Comment on above: Performed By: #### L 500.4050, L501.5200, L501.2300, L100.0100 ####[facility] [address] [place], [address] Erythrocyte morphology asses smentOrdered By: Hill Acuña on 11-02-2024 RBC morphology finding Nom (Bld) NORM C+C NORMAL NORM C&C [facility] Magnesiumon 11-02-2024 Magnesium [Mass/Vol] 2.0 mg/dL Normal 1.5-2.2 [facility] Comment on above: Performed By: #### L 500.4050, L501.5200, L501.2300, L100.0100 ####[facility] [address] [place], [address] Phosphoruson 11-02-2024 Phosphate [Mass/Vol] 2.2 mg/dL Low 2.7-4.5 [facility] Comment on above: Performed By: #### L 500.4050, L501.5200, L501.2300, L100.0100 ####[facility] [address] [place], [address] RBC morphology finding Nom ( Bld)Ordered By: Hill Acuña on 11-02-2024 Erythrocyte morphology assessment NORM C+C NORMAL NORM C&C [facility] Bedside Glucoseon 11-01-2024 FINGERSTICK GLU 172 mg/dL High 74-106 [facility] Comment on above: Result Comment: BRISA GEMENT OF PATIENT CARE PER NURSING PROTOCOL Performed By: #### L 501.080 ####[facility] [address] [place], [address] FINGERSTICK GLU 181 mg/dL High 74-106 [facility] Comment on above: Result Comment: BRISA GEMENT OF PATIENT CARE PER NURSING PROTOCOL Performed By: #### L 501.080 ####[facility] [address] [place], [address] FINGERSTICK GLU 209 mg/dL High 74-106 [facility] Comment on above: Result Comment: BRISA GEMENT OF PATIENT CARE PER NURSING PROTOCOL Performed By: #### L 501.080 ####[facility] [address] [place], [address] FINGERSTICK GLU 232 mg/dL High 74-106 [facility] Comment on above: Result Comment: BRISA MOROCHO OF PATIENT CARE PER NURSING PROTOCOL Performed By: #### L 501.080 ####[facility] [address] [place], [address] Comprehensive Metabolic Prof ilon 11-01-2024 Albumin [Mass/Vol] 2.6 g/dL Low 3.5-5.0 [facility] Comment on above: Performed By: #### L 100.0100, L500.4050 ####[facility] [address] [place], [address] Albumin/Globulin [Mass ratio] 0.8 {ratio} Low 0.9-2.4 [facility] Comment on above: Performed By: #### L 100.0100, L500.4050 ####[facility] [address] [place], [address] ALK PHOS 253 U/L High 40-129 [facility] Comment on above: Performed By: #### L 100.0100, L500.4050 ####[facility] [address] [place], [address] ALT [Catalytic activity/Vol] 24 U/L Normal <=46 [facility] Comment on above: Performed By: #### L 100.0100, L500.4050 ####[facility] [address] [place], [address] AST [Catalytic activity/Vol] 39 U/L High <=37 [facility] Comment on above: Performed By: #### L 100.0100, L500.4050 ####[facility] [address] [place], [address] Bilirubin [Mass/Vol] 2.11 mg/dL High 0.00-1.30 [facility] Comment on above: Performed By: #### L 100.0100, L500.4050 ####[facility] [address] [place], [address] BUN/CRE 22.4 RATIO High 10-20 [facility] Comment on above: Performed By: #### L 100.0100, L500.4050 ####[facility] [address] [place], [address] Calcium [Mass/Vol] 9.5 mg/dL Normal 7.6-11.0 [facility] Comment on above: Performed By: #### L 100.0100, L500.4050 ####[facility] [address] [place], [address] Chloride [Moles/Vol] 110 mmol/L High 98-108 [facility] Comment on above: Performed By: #### L 100.0100, L500.4050 ####[facility] [address] [place], [address] CO2 [Moles/Vol] 13.0 mmol/L Low 21.0-32.0 [facility] Comment on above: Performed By: #### L 100.0100, L500.4050 ####[facility] [address] [place], [address] Creatinine [Mass/Vol] 1.19 mg/dL Normal 0.70-1.20 [facility] Comment on above: Performed By: #### L 100.0100, L500.4050 ####[facility] [address] [place], [address] ECRCL 76.09 ml/min Normal 50-250 [facility] Comment on above: Performed By: #### L 100.0100, L500.4050 ####[facility] [address] [place], [address] GAP 13 Normal 5-15 [facility] Comment on above: Performed By: #### L 100.0100, L500.4050 ####[facility] [address] [place], [address] GFR/1.73 sq M.predicted among non-blacks MDRD (S/P/Bld) [Vol rate/Area] 71 mL/min/{1.73_m2} Normal >60 [facility] Comment on above: Result Comment: mL/m in/1.73m2 CKD-EPI Creatinine Equation (2020) Performed By: #### L 100.0100, L500.4050 ####[facility] [address] [place], [address] Globulin (S) [Mass/Vol] 3.1 g/dL Normal 2.2-4.2 [facility] Comment on above: Performed By: #### L 100.0100, L500.4050 ####[facility] [address] [place], [address] Glucose [Mass/Vol] 235 mg/dL High 70-99 [facility] Comment on above: Performed By: #### L 100.0100, L500.4050 ####[facility] [address] [place], [address] Potassium [Moles/Vol] 3.4 mmol/L Normal 3.3-5.1 [facility] Comment on above: Performed By: #### L 100.0100, L500.4050 ####[facility] [address] [place], [address] Sodium [Moles/Vol] 135 mmol/L Normal 133-145 [facility] Comment on above: Performed By: #### L 100.0100, L500.4050 ####[facility] [address] [place], [address] T PROT 5.6 g/dL Low 5.9-8.4 [facility] Comment on above: Performed By: #### L 100.0100, L500.4050 ####[facility] [address] [place], [place], [address] Urea nitrogen [Mass/Vol] 27 mg/dL High 4-19 [facility] Comment on above: Performed By: #### L 100.0100, L500.4050 ####[facility] [address] [place], [place], [address] Trough vancomycin levelOrder ed By: Buster Fuchs on 11-01-2024 Vancomycin trough [Mass/Vol] 17.7 ug/mL High 5.0-15.0 [facility] Vancomycin trough [Mass/Vol] Ordered By: Buster Fuchs on 11-01-2024 Trough vancomycin level 17.7 ug/mL High 5.0-15.0 [facility] Vancomycin, Trough Levelon 0 11-01-2024 VANCO, TROUGH 17.7 ug/mL High 5.0-15.0 [facility] Comment on above: Order Comment: Comme nts: Trough to be drawn 30 mins prior to scheduled [id number] Result Comment: Eleazar mmended goal trough ranges [...] therapy recommended for serious lifethreatening infections include:- Mpysumefvq-Ykguojobzrkq-Zkneaolsv (Ventilator/Healtcare Associated)-SepsisPLEASE CONTACT PHARMACY SERVICES (#[id number]) FOR INTERPRETATIONOF RESULTS. Performed By: #### L 501.8849 ####[facility] [address] [place], [place], [address] Activated partial thrombopla stin time (aPTT) in platelet poor plasma by coagulation aOrdered By: Buster Fuchs on 10-31-2024 aPTT Coag (PPP) [Time] 42.7 s High 24.1-36.2 [facility] Bedside Glucoseon 10-31-2024 FINGERSTICK GLU 185 mg/dL High 74-106 [facility] Comment on above: Result Comment: BRISA GEMENT OF PATIENT CARE PER NURSING PROTOCOL Performed By: #### L 501.080 ####[facility] [address] [place], [address] FINGERSTICK GLU 175 mg/dL High -106 [facility] Comment on above: Result Comment: BRISA GEMENT OF PATIENT CARE PER NURSING PROTOCOL Performed By: #### L 501.080 ####[facility] [address] [place], [address] FINGERSTICK GLU 189 mg/dL High -106 [facility] Comment on above: Result Comment: BRISA GEMENT OF PATIENT CARE PER NURSING PROTOCOL Performed By: #### L 501.080 ####[facility] [address] [place], [address] FINGERSTICK GLU 184 mg/dL High [address] [place] [address] Comment on above: Result Comment: BRISA GEMENT OF PATIENT CARE PER NURSING PROTOCOL Performed By: #### L 501.080 ####[facility] [address] [place], [address] CBC W/Diff, Automatedon 10-04 Anisocytosis Ql (Bld) 1+ Normal [facility] Comment on above: Performed By: #### L 500.4050, L100.0100 ####[facility] [address] [place], [address] Comprehensive Metabolic Prof ilon 10-31-2024 Albumin [Mass/Vol] 2.5 g/dL Low 3.5-5.0 [facility] Comment on above: Performed By: #### L 500.4050, L100.0100 ####[facility] [address] [place], [address] Albumin/Globulin [Mass ratio] 0.8 {ratio} Low 0.9-2.4 [facility] Comment on above: Performed By: #### L 500.4050, L100.0100 ####[facility] [address] [place], [address] ALK PHOS 243 U/L High 40-129 [facility] Comment on above: Performed By: #### L 500.4050, L100.0100 ####[facility] [address] [place], [address] ALT [Catalytic activity/Vol] 20 U/L Normal <=46 [facility] Comment on above: Performed By: #### L 500.4050, L100.0100 ####[facility] [address] [place], [address] AST [Catalytic activity/Vol] 31 U/L Normal <=37 [facility] Comment on above: Performed By: #### L 500.4050, L100.0100 ####[facility] [address] [place], [address] Bilirubin [Mass/Vol] 2.18 mg/dL High 0.00-1.30 [facility] Comment on above: Performed By: #### L 500.4050, L100.0100 ####[facility] [address] [place], [address] BUN/CRE 21.7 RATIO High 10-20 [facility] Comment on above: Performed By: #### L 500.4050, L100.0100 ####[facility] [address] [place], [address] Calcium [Mass/Vol] 9.0 mg/dL Normal 7.6-11.0 [facility] Comment on above: Performed By: #### L 500.4050, L100.0100 ####[facility] [address] [place], [address] Chloride [Moles/Vol] 110 mmol/L High 98-108 [facility] Comment on above: Performed By: #### L 500.4050, L100.0100 ####[facility] [address] [place], [address] CO2 [Moles/Vol] 15.3 mmol/L Low 21.0-32.0 [facility] Comment on above: Performed By: #### L 500.4050, L100.0100 ####[facility] [address] [place], [address] Creatinine [Mass/Vol] 1.18 mg/dL Normal 0.70-1.20 [facility] Comment on above: Performed By: #### L 500.4050, L100.0100 ####[facility] [address] [place], [address] ECRCL 76.73 ml/min Normal 50-250 [facility] Comment on above: Performed By: #### L 500.4050, L100.0100 ####[facility] [address] [place], [address] GAP 11 Normal 5-15 [facility] Comment on above: Performed By: #### L 500.4050, L100.0100 ####[facility] [address] [place], [address] GFR/1.73 sq M.predicted among non-blacks MDRD (S/P/Bld) [Vol rate/Area] 72 mL/min/{1.73_m2} Normal >60 [facility] Comment on above: Result Comment: mL/m in/1.73m2 CKD-EPI Creatinine Equation (2020) Performed By: #### L 500.4050, L100.0100 ####[facility] [address] [place], [address] Globulin (S) [Mass/Vol] 3.0 g/dL Normal 2.2-4.2 [facility] Comment on above: Performed By: #### L 500.4050, L100.0100 ####[facility] [address] [place], [address] Glucose [Mass/Vol] 193 mg/dL High 70-99 [facility] Comment on above: Performed By: #### L 500.4050, L100.0100 ####[facility] [address] [place], [address] Potassium [Moles/Vol] 3.3 mmol/L Normal 3.3-5.1 [facility] Comment on above: Performed By: #### L 500.4050, L100.0100 ####[facility] [address] [place], [address] Sodium [Moles/Vol] 136 mmol/L Normal 133-145 [facility] Comment on above: Performed By: #### L 500.4050, L100.0100 ####[facility] [address] [place], [address] T PROT 5.6 g/dL Low 5.9-8.4 [facility] Comment on above: Performed By: #### L 500.4050, L100.0100 ####[facility] [address] [place], [address] Urea nitrogen [Mass/Vol] 26 mg/dL High 4-19 [facility] Comment on above: Performed By: #### L 500.4050, L100.0100 ####[facility] [address] [place], [address] Partial Thromboplast Timeon 10-31-2024 aPTT Coag (Bld) [Time] 42.7 s High 24.1-36.2 [facility] Comment on above: Performed By: #### L 300.4310, L300.3900 ####[facility] [address] [place], [address] Prothrombin Time w/INRon INR Coag (PPP) [Relative time] 2.5 {INR} Normal [facility] Comment on above: Performed By: #### L 300.4310, L300.3900 ####[facility] [address] [place], [address] PT Coag (PPP) [Time] 27.2 s High 11.7-14.9 [facility] Comment on above: Performed By: #### L 300.4310, L300.3900 ####[facility] [address] [place], [address] INR Normal [facility] Comment on above: Result Comment: SPEC IMEN WAS QNS Performed By: #### L 300.3900 ####[facility] [address] [place], [address] PROTIME Normal 11.7-14.9 [facility] Comment on above: Result Comment: SPEC IMEN WAS QNS Performed By: #### L 300.3900 ####[facility] [address] [place], [address] aPTT Coag (PPP) [Time]Ordere d By: Buster Fuchs on 10-31-2024 Activated partial thromboplastin time (aPTT) in platelet poor plasma by coagulation a 42.7 Seconds High 24.1-36.2 [facility] Abdomen Single View (Portabl e)on 10-30-2024 Abdomen Single View (Portable) Normal [facility] Ammoniaon 10-30-2024 Ammonia (P) [Moles/Vol] 130.0 umol/L High 16-60 [facility] Comment on above: Performed By: #### L 503.5510 ####[facility] [address] [place], [address] Basic Metabolic Profile (BMP )on 10-30-2024 BUN/CRE 20.6 RATIO High 10-20 [facility] Comment on above: Performed By: #### L 100.0100, L500.2500 ####[facility] [address] [place], [address] Calcium [Mass/Vol] 9.3 mg/dL Normal 7.6-11.0 [facility] Comment on above: Performed By: #### L 100.0100, L500.2500 ####[facility] [address] [place], [address] Chloride [Moles/Vol] 105 mmol/L Normal 98-108 [facility] Comment on above: Performed By: #### L 100.0100, L500.2500 ####[facility] [address] [place], [address] CO2 [Moles/Vol] 15.2 mmol/L Low 21.0-32.0 [facility] Comment on above: Performed By: #### L 100.0100, L500.2500 ####[facility] [address] [place], [address] Creatinine [Mass/Vol] 1.25 mg/dL High 0.70-1.20 [facility] Comment on above: Performed By: #### L 100.0100, L500.2500 ####[facility] [address] [place], [address] ECRCL 72.43 ml/min Normal 50-250 [facility] Comment on above: Performed By: #### L 100.0100, L500.2500 ####[facility] [address] [place], [address] GAP 12 Normal 5-15 [facility] Comment on above: Performed By: #### L 100.0100, L500.2500 ####[facility] [address] [place], [address] GFR/1.73 sq M.predicted among non-blacks MDRD (S/P/Bld) [Vol rate/Area] 67 mL/min/{1.73_m2} Normal >60 [facility] Comment on above: Result Comment: mL/m in/1.73m2 CKD-EPI Creatinine Equation (2020) Performed By: #### L 100.0100, L500.2500 ####[facility] [address] [place], [address] Glucose [Mass/Vol] 239 mg/dL High 70-99 [facility] Comment on above: Performed By: #### L 100.0100, L500.2500 ####[facility] [address] [place], [address] Potassium [Moles/Vol] 3.8 mmol/L Normal 3.3-5.1 [facility] Comment on above: Performed By: #### L 100.0100, L500.2500 ####[facility] [address] [place], [address] Sodium [Moles/Vol] 133 mmol/L Normal 133-145 [facility] Comment on above: Performed By: #### L 100.0100, L500.2500 ####[facility] [address] [place], [address] Urea nitrogen [Mass/Vol] 26 mg/dL High 4-19 [facility] Comment on above: Performed By: #### L 100.0100, L500.2500 ####[facility] [address] [place], [address] Bedside Glucoseon 10-30-2024 FINGERSTICK GLU 193 mg/dL High 74-106 [facility] Comment on above: Result Comment: BRISA GEMENT OF PATIENT CARE PER NURSING PROTOCOL Performed By: #### L 501.080 ####[facility] [address] [place], [address] FINGERSTICK GLU 194 mg/dL High 74-106 [facility] Comment on above: Result Comment: BRISA GEMENT OF PATIENT CARE PER NURSING PROTOCOL Performed By: #### L 501.080 ####[facility] [address] [place], [address] FINGERSTICK GLU 236 mg/dL High 74-106 [facility] Comment on above: Result Comment: BRISA GEMENT OF PATIENT CARE PER NURSING PROTOCOL Performed By: #### L 501.080 ####[facility] [address] [place], [address] C. difficile Ql (Stl)Ordered By: Hill Wright on 10-30-2024 Stool Clostridium difficile detection Toxigenic C. difficile Abnormal [facility] CBC W/Diff, Automatedon 10-03 WBC (Bld) [#/Vol] 31.7 10*3/uL Invalid Interpretation Code 4.4-11.0 [facility] Comment on above: Result Comment: CRIT ICAL VALUE CALLED TO [id number]/29/25 0641 Vitaliy Moreira.RESULTS READ BACK BY SAME. Performed By: #### L 100.0100, L500.2500 ####[facility] [address] [place], [address] Absolute Lymph 1.35 X10 3/uL Normal 0.83-4.51 [facility] Comment on above: Performed By: #### L 100.0100, L500.2500 ####[facility] [address] [place], [address] Absolute Neut 27.2 X10 3/uL High 2.0-7.7 [facility] Comment on above: Performed By: #### L 100.0100, L500.2500 ####[facility] [address] [place], [address] Basophils/100 WBC (Bld) 0.5 % Normal 0-1 [facility] Comment on above: Performed By: #### L 100.0100, L500.2500 ####[facility] [address] [place], [address] Eosinophils/100 WBC (Bld) 0.5 % Normal 0-5 [facility] Comment on above: Performed By: #### L 100.0100, L500.2500 ####[facility] [address] [place], [address] Erythrocyte distribution width (RBC) [Ratio] 19.8 % High 11.6-14.6 [facility] Comment on above: Performed By: #### L 100.0100, L500.2500 ####[facility] [address] [place], [address] Hematocrit (Bld) [Volume fraction] 33.4 % Low 40-54 [facility] Comment on above: Performed By: #### L 100.0100, L500.2500 ####[facility] [address] [place], [address] Hemoglobin (Bld) [Mass/Vol] 11.5 g/dL Low 13.0-16.5 [facility] Comment on above: Performed By: #### L 100.0100, L500.2500 ####[facility] [address] [place], [address] IG% 1.800 High 0.0-0.9 [facility] Comment on above: Result Comment: IG% - Immature Granulocytes (promyelocytes, myelocytes andmetamyelocytes) > 1% indicates that a LEFT SHIFT is Present. Performed By: #### L 100.0100, L500.2500 ####[facility] [address] [place], [address] Lymphocytes/100 WBC (Bld) 4.3 % Low 19-41 [facility] Comment on above: Performed By: #### L 100.0100, L500.2500 ####[facility] [address] [place], [address] MCH (RBC) [Entitic mass] 31.6 pg Normal 27.0-32.0 [facility] Comment on above: Performed By: #### L 100.0100, L500.2500 ####[facility] [address] [place], [address] MCHC (RBC) [Mass/Vol] 34.4 g/dL Normal 32-36 [facility] Comment on above: Performed By: #### L 100.0100, L500.2500 ####[facility] [address] [place], [address] MCV (RBC) [Entitic vol] 91.8 fL Normal 80-94 [facility] Comment on above: Performed By: #### L 100.0100, L500.2500 ####[facility] [address] [place], [address] Monocytes/100 WBC (Bld) 7.3 % Normal 0-10 [facility] Comment on above: Performed By: #### L 100.0100, L500.2500 ####[facility] [address] [place], [address] Neutrophils/100 WBC (Bld) 85.6 % High 47-70 [facility] Comment on above: Performed By: #### L 100.0100, L500.2500 ####[facility] [address] [place], [address] Nucleated RBC (Bld) [#/Vol] 0 10*3/uL Normal 0-5 [facility] Comment on above: Performed By: #### L 100.0100, L500.2500 ####[facility] [address] [place], [address] Platelet mean volume (Bld) [Entitic vol] 11.6 fL Normal 6.2-12.0 [facility] Comment on above: Performed By: #### L 100.0100, L500.2500 ####[facility] [address] [place], [address] Platelets (Bld) [#/Vol] 121 10*3/uL Low 150-450 [facility] Comment on above: Performed By: #### L 100.0100, L500.2500 ####[facility] [address] [place], [address] RBC (Bld) [#/Vol] 3.64 10*6/uL Low 4.6-6.2 [facility] Comment on above: Performed By: #### L 100.0100, L500.2500 ####[facility] [address] [place], [address] RDW SD 64.5 fl High 35.1-43.9 [facility] Comment on above: Performed By: #### L 100.0100, L500.2500 ####[facility] [address] [place], [address] CDIFF (PCR)on 10-30-2024 CDIFF Normal [facility] Comment on above: Performed By: #### M 100.6795, M100.637, M100.6796, M100.0605 ####[facility] [address] [place], [address] Clostridium Diff Toxin/Agon 10-30-2024 CDIFF (EIA) Normal [facility] Comment on above: Performed By: #### M 100.6795, M100.637, M100.6796, M100.0605 ####[facility] [address] [place], [address] Clostridium difficile detect ion by polymerase chain reactionOrdered By: Hill Wright on 10-30-2024 C. difficile DNA ANANTH+probe Ql (Unsp spec) [facility] Consultation - Urologyon Consultation - Urology Normal [facility] ENTERIC PATHOGEN PANEL STOOL on 10-30-2024 EP PANEL Normal [facility] Comment on above: Performed By: #### M 100.6795, M100.637, M100.6796, M100.0605 ####[facility] [address] [place], [address] MR/CON.PCM.GIon 10-30-2024 MR/CON.PCM.GI Normal [facility] Partial Thromboplast Timeon 10-30-2024 aPTT Coag (Bld) [Time] 41.4 s High 24.1-36.2 [facility] Comment on above: Performed By: #### L 300.4310, L300.3900 ####[facility] [address] [place], [address] Prothrombin Time w/INRon INR Coag (PPP) [Relative time] 2.5 {INR} Normal [facility] Comment on above: Performed By: #### L 300.4310, L300.3900 ####[facility] [address] [place], [address] PT Coag (PPP) [Time] 27.1 s High 11.7-14.9 [facility] Comment on above: Performed By: #### L 300.4310, L300.3900 ####[facility] [address] [place], [address] Stool Clostridium difficile detectionOrdered By: Hill Wright on 10-30-2024 C. difficile Ql (Stl) Toxigenic C. difficile Abnormal [facility] Stool Lactoferrin/WBCon - WBCST Is the patient recei ving laxatives? N New/unexplained onset of 3 or more stools in past 24 hrs? Y Normal Reference Range = Negative Fecal WBC Lactoferrin A Positive: Fecal WBC Lactoferrin present A Normal [facility] Comment on above: Performed By: #### M 100.6795, M100.637, M100.6796, M100.0605 ####[facility] [address] [place], [place], [address] Stool lactoferrin detection by immunoassayOrdered By: Hill Wright on 10-30-2024 Lactoferrin IA Ql (Stl) [facility] Urine Cultureon 10-30-2024 URC Culture exhibits no growth. Normal [facility] Comment on above: Performed By: #### M 100.0989 ####[facility] [address] [place], [place], [address] Vancomycin, Trough Levelon 0 10-30-2024 VANCO, TROUGH 20.5 ug/mL High 5.0-15.0 [facility] Comment on above: Order Comment: 1500 Result [...] therapy recommended for serious lifethreatening infections include:- Rsgablkfie-Pdeqbuigwocn-Cervrjnwi (Ventilator/Healtcare Associated)-SepsisPLEASE CONTACT PHARMACY SERVICES (#2071) FOR INTERPRETATIONOF RESULTS. Performed By: #### L 501.8820 ####[facility] [address] [place], [place], [address] Ammoniaon 10-29-2024 Ammonia (P) [Moles/Vol] 103.0 umol/L High 16-60 [facility] Comment on above: Performed By: #### L 503.5510 ####[facility] [address] [place], [address] Arterial patency Wrist arter y --pre arterial punctureOrdered By: Buster Fuchs on 10-29-2024 Assessment of wrist artery patency prior to arterial puncture Positive [facility] Assessment of wrist artery p atency prior to arterial punctureOrdered By: Buster Fuchs on 10-29-2024 Arterial patency Wrist artery --pre arterial puncture Positive [facility] Base excess Calc (BldV) [Mol es/Vol]Ordered By: Buster Fuchs on 10-29-2024 Blood base excess determination -10 mmol/L Low -2-2 [facility] Basic Metabolic Profile (BMP )on 10-29-2024 BUN/CRE 20.7 RATIO High 10-20 [facility] Comment on above: Performed By: #### L 500.2500, L100.0100 ####[facility] [address] [place], [address] Calcium [Mass/Vol] 9.1 mg/dL Normal 7.6-11.0 [facility] Comment on above: Performed By: #### L 500.2500, L100.0100 ####[facility] [address] [place], [address] Chloride [Moles/Vol] 105 mmol/L Normal 98-108 [facility] Comment on above: Performed By: #### L 500.2500, L100.0100 ####[facility] [address] [place], [address] CO2 [Moles/Vol] 17.0 mmol/L Low 21.0-32.0 [facility] Comment on above: Performed By: #### L 500.2500, L100.0100 ####[facility] [address] [place], [address] Creatinine [Mass/Vol] 1.08 mg/dL Normal 0.70-1.20 [facility] Comment on above: Performed By: #### L 500.2500, L100.0100 ####[facility] [address] [place], [address] ECRCL 82.91 ml/min Normal 50-250 [facility] Comment on above: Performed By: #### L 500.2500, L100.0100 ####[facility] [address] [place], [address] GAP 11 Normal 5-15 [facility] Comment on above: Performed By: #### L 500.2500, L100.0100 ####[facility] [address] [place], [address] GFR/1.73 sq M.predicted among non-blacks MDRD (S/P/Bld) [Vol rate/Area] 80 mL/min/{1.73_m2} Normal >60 [facility] Comment on above: Result Comment: mL/m in/1.73m2 CKD-EPI Creatinine Equation (2020) Performed By: #### L 500.2500, L100.0100 ####[facility] [address] [place], [address] Glucose [Mass/Vol] 214 mg/dL High 70-99 [facility] Comment on above: Performed By: #### L 500.2500, L100.0100 ####[facility] [address] [place], [address] Potassium [Moles/Vol] 3.3 mmol/L Normal 3.3-5.1 [facility] Comment on above: Performed By: #### L 500.2500, L100.0100 ####[facility] [address] [place], [address] Sodium [Moles/Vol] 132 mmol/L Low 133-145 [facility] Comment on above: Performed By: #### L 500.2500, L100.0100 ####[facility] [address] [place], [address] Urea nitrogen [Mass/Vol] 22 mg/dL High 4-19 [facility] Comment on above: Performed By: #### L 500.2500, L100.0100 ####[facility] [address] [place], [address] Bedside Glucoseon 10-29-2024 FINGERSTICK GLU 194 mg/dL High 74-106 [facility] Comment on above: Result Comment: BRISA GEMENT OF PATIENT CARE PER NURSING PROTOCOL Performed By: #### L 501.080 ####[facility] [address] [place], [address] FINGERSTICK GLU 191 mg/dL High 74-106 [facility] Comment on above: Result Comment: BRISA GEMENT OF PATIENT CARE PER NURSING PROTOCOL Performed By: #### L 501.080 ####[facility] [address] [place], [address] FINGERSTICK GLU 209 mg/dL High 74-106 [facility] Comment on above: Result Comment: BRISA GEMENT OF PATIENT CARE PER NURSING PROTOCOL Performed By: #### L 501.080 ####[facility] [address] [place], [address] FINGERSTICK GLU 166 mg/dL High 74-106 [facility] Comment on above: Result Comment: BRISA GEMENT OF PATIENT CARE PER NURSING PROTOCOL Performed By: #### L 501.080 ####[facility] [address] [place], [address] Blood Gases by [facility] 025 ALEXSANDER TEST Positive Normal [facility] Comment on above: Performed By: #### L 9000.0800 ####[facility] [address] [place], [address] Base excess Calc (Bld) [Moles/Vol] -10 mmol/L Low -2 to +2 [facility] Comment on above: Performed By: #### L 0.0800 ####[facility] [address] [place], [address] Blood Gas Type ART Normal [facility] Comment on above: Performed By: #### L 8999.08 ####[facility] [address] [place], [address] CO2 [Moles/Vol] 16 mmol/L Normal [facility] Comment on above: Performed By: #### L 8999.0800 ####[facility] [address] [place], [address] FI02 21.0 [facility] Comment on above: Performed By: #### L 0.08 ####[facility] [address] [place], [address] HCO3 (Bld) [Moles/Vol] 15.2 mmol/L Low 22-26 [facility] Comment on above: Performed By: #### L 8999.0800 ####[facility] [address] [place], [address] Mode Not entered [facility] Comment on above: Performed By: #### L 8999.0800 ####[facility] [address] [place], [address] O2 Delivery Dev Room Air Normal [facility] Comment on above: Performed By: #### L 8999.0800 ####[facility] [address] [place], [address] pCO2 25.1 mmHg Low 35-45 [facility] Comment on above: Performed By: #### L 0.0800 ####[facility] [address] [place], [address] pH (Bld) 7.39 [pH] Normal 7.35-7.45 [facility] Comment on above: Performed By: #### L 9000.0800 ####[facility] [address] [place], [address] PO2 67 mmHG Low 75-100 [facility] Comment on above: Performed By: #### L 9000.0800 ####[facility] [address] [place], [address] SITE L Radial Normal [facility] Comment on above: Performed By: #### L 0.0800 ####[facility] [address] [place], [address] SO2 93 Low 95-99 [facility] Comment on above: Performed By: #### L 0.0800 ####[facility] [address] [place], [address] Blood base excess determinat ionOrdered By: Buster Fuchs on 10-29-2024 Base excess Calc (BldV) [Moles/Vol] -10 mmol/L Low -2-2 [facility] Blood bicarbonate measuremen tOrdered By: Buster Fuchs on 10-29-2024 HCO3 (Bld) [Moles/Vol] 15.2 mmol/L Low 22-26 [facility] Blood bicarbonate measurement 15.2 mmol/L Low -26 [facility] Blood cultureOrdered By: Hugo Wright on 10-29-2024 Bacteria identified Cx Nom (Bld) No growth in 5 days. [facility] Blood culture No growth in 5 days. [facility] CBC W/Diff, Automatedon 03- POLYCHROMASIA 1+ Normal [facility] Comment on above: Performed By: #### L 500.2500, L100.0100 ####[facility] [address] [place], [address] Anisocytosis Ql (Bld) 1+ Normal [facility] Comment on above: Performed By: #### L 500.2500, L100.0100 ####[facility] [address] [place], [address] PLT EST MOD DEC Normal ADEQ [facility] Comment on above: Performed By: #### L 500.2500, L100.0100 ####[facility] [address] [place], [address] Calculated very low density lipoprotein (VLDL) cholesterol measurementOrdered By: Hill Wright on 10-29-2024 Calculated very low density lipoprotein (VLDL) cholesterol measurement 17 mg/dL 5-40 [facility] Calculated very low density lipoprotein (VLDL) cholesterol measurement 17 mg/dL 5-40 [facility] Cholesterol [Mass/Vol]Ordere d By: Hill Wright on 10-29-2024 Serum or plasma cholesterol measurement (mass/volume) 132 mg/dL <201 [facility] Cholesterol in HDL [Mass/Vol ]Ordered By: Hill rWight on 10-29-2024 Serum or plasma cholesterol in HDL measurement (mass/volume) 33 mg/dL Low >40 [facility] Consultation - Intensiviston 10-29-2024 Consultation - Customer Account Representative Normal [facility] Consultation - Urologyon Consultation - Urology Normal [facility] Determination of fraction of inspired oxygenOrdered By: Buster Fuchs on 10-29-2024 Determination of fraction of inspired oxygen 21.0 [facility] Electrocardiogram reportOrde red By: Jeovanny Ramos on 10-29-2024 EKG study [facility] Other Phone: H AND P Exam - Hospitaliston 10-29-2024 H&P Exam - Hospitalist Normal [facility] Hemoglobin A1con 10-29-2024 HbA1c (Bld) [Mass fraction] 6.7 % Normal <=5.6 [facility] Comment on above: Performed By: #### L 501.9985 ####[facility] [address] [place], [address] Kidney and Bladderon 025 Kidney and Bladder Normal [facility] L509.6001on 10-29-2024 CORTISOL 10.20 ug/dL Normal 6.02-18.40 [facility] Comment on above: Performed By: #### L 509.6001 ####[facility] [address] [place], [address] LDL calc ser/plasOrdered By: Hill Wright on 10-29-2024 Cholesterol in LDL [Mass/Vol] 83 mg/dL Normal [facility] Comment on above: Result Comment: Bord pezfaq=412-916 mg/dL Higher Cfva=799 mg/dL or greater Performed By: #### L 500.4100 ####[facility] [address] [place], [address] Lipid Profileon 10-29-2024 CHOL:HDL 4.04 Normal [facility] Comment on above: Performed By: #### L 500.4100 ####[facility] [address] [place], [address] Cholesterol in VLDL [Mass/Vol] 17 mg/dL Normal 5-40 [facility] Comment on above: Performed By: #### L 500.4100 ####[facility] [address] [place], [address] Triglyceride [Mass/Vol] 83 mg/dL Normal [facility] Comment on above: Result Comment: The drugs N-Acetylcysteine and Metamizole may falselydepress this assay.Normal range: <150 mg/dLBorderline High: 150-199 mg/dLHigh: 200-499 mg/dLVery High: >500 mg/dL Performed By: #### L 500.4100 ####[facility] [address] [place], [address] Measurement, pHOrdered By: Ney Fuchs on 10-29-2024 pH (Unsp spec) 7.39 [pH] 7.35-7.45 [facility] No Panel InformationOrdered By: Buster Fuchs on 10-29-2024 ART [facility] L Radial [facility] Not entered [facility] Room Air [facility] No Panel InformationOrdered By: Hill Wright on 10-29-2024 10.20 ug/dL 6.02-18.40 [facility] Osmolality, Serumon 10-30-19 25 OSMOLALITY,SER 292 mOsm/KG Normal 275-295 [facility] Comment on above: Performed By: #### L 501.7300 ####[facility] [address] [facility] [place], [place], [address] Osmolality, Urineon 10-30-19 25 OSMOLALITY,UR 484 mOsm/KG Normal [facility] Comment on above: Result Comment: Norm al Urine Reference Ranges Random: 50 - 1200 mOsm/kg H20 depending on fluid intake Random: >850 mOsm/kg after 12 hour fluid restriction 24 hour: 300 - 900 mOsm/kg H2O Performed By: #### L 501.7400 ####[facility] [address] [facility] [place], [place], [address] Osmolality, serumOrdered By: Hill Wright on 10-29-2024 Osmolality, serum 292 mOsm/KG 275-295 [facility] Oxygen saturation measuremen tOrdered By: Buster Fuchs on 10-29-2024 Oxygen saturation measurement 93 % Low 95-99 [facility] Partial pressure of carbon d ioxide measurementOrdered By: Buster Fuchs on 10-29-2024 Partial pressure of carbon dioxide measurement 25.1 mmHg Low 35-45 [facility] Partial pressure of oxygen m easurementOrdered By: Buster Fuchs on 10-29-2024 Partial pressure of oxygen measurement 67 mmHG Low 75-100 [facility] Screening total cholesterol/ high density lipoprotein (HDL) cholesterol ratioOrdered By: Hill Wright on 10-29-2024 Screening total cholesterol/high density lipoprotein (HDL) cholesterol ratio 4.04 [facility] Serum or plasma cholesterol in HDL measurement (mass/volume)Ordered By: Hill Wright on 10-29-2024 Cholesterol in HDL [Mass/Vol] 33 mg/dL Low [facility] Comment on above: Result Comment: Nereyda onal Cholesterol Education Program (NCEP) guidelines:<40 mg/dL: Low HDL-cholesterol (major risk factor for CHD)>= 60 mg/dL: High HDL-cholesterol (negative risk factor forCHD)HDL-cholesterol is affected by a number of factors, e.g.smoking, exercise, hormones, sex and age. Performed By: #### L 500.4100 ####[facility] [address] [place], [address] Serum or plasma cholesterol measurement (mass/volume)Ordered By: Hill Wright on 10-29-2024 Cholesterol [Mass/Vol] 132 mg/dL Normal <=200 [facility] Comment on above: Result Comment: Chol esterol level, Desirable <200 mg/dLBorderline high cholesterol 200-239 mg/dLHigh cholesterol >=240 mg/dLRecommendations of the NCEP Adult Treatment Panel for thefollowing risk-cutoff thresholds for the [place] American[facility] hospital[facility]. Performed By: #### L 500.4100 ####[facility] [address] [place], [place], [address] Total carbon dioxide measure mentOrdered By: Buster Fuchs on 10-29-2024 CO2 [Moles/Vol] 16 mmol/L [facility] Total carbon dioxide measurement 16 mmol/L [facility] Triglycerides measurementOrd ered By: Hill Wright on 10-29-2024 Triglycerides measurement 83 mg/dL [facility] Urine cultureOrdered By: Viraj Dunn on 10-29-2024 Bacteria identified Cx Nom (U) Culture exhibits no growth. [facility] Urine culture Culture exhibits no growth. [facility] pH (Unsp spec)Ordered By: Marianna Fuchs on 10-29-2024 Measurement, pH 7.39 7.35-7.45 [facility] 12 Lead EKGon 10-28-2024 12 Lead EKG Normal [facility] Abdomen/Pelvis W IV Cont ONL Yon 10-28-2024 Abdomen/Pelvis W IV Cont ONLY Normal [facility] Absolute neutrophil countOrd ered By: Alber Dunn on 10-28-2024 Neutrophils (Bld) [#/Vol] 19.0 10*3/uL High 2.0-7.7 [facility] Amorphous sediment LM Ql (Ur ine sed)Ordered By: Alber Dunn on 10-28-2024 Amorphous sediment detection in urine sediment by light microscopy 1+ URATE [facility] Amorphous sediment detection in urine sediment by light microscopyOrdered By: Alber Dunn on 10-28-2024 Amorphous sediment LM Ql (Urine sed) 1+ URATE [facility] Anion gap in Serum or Plasma Ordered By: Alber Dunn on 10-28-2024 Anion gap [Moles/Vol] 17 mmol/L High 5-15 [facility] BUN/creatinine ratioOrdered By: Alber Dunn on 10-28-2024 Urea nitrogen/Creatinine [Mass ratio] 18.8 mg/mg 10-20 [facility] Basophil percentageOrdered B y: Alber Dunn on 10-28-2024 Basophils/100 WBC (Bld) 0.2 % 0-1 [facility] Bilirubin Test strip Ql (U)O rdered By: Alber Dunn on 10-28-2024 Bilirubin Ql (U) 1 mg/dL High Negative [facility] Comment on above: COLOR OF URINE MAY A FFECT DIPSTICK RESULTS. Bilirubin, totalOrdered By: Alber Dunn on 10-28-2024 Bilirubin [Mass/Vol] 1.86 mg/dL High 0.00-1.30 [facility] Carbon dioxide, total [Moles /volume] in Central venous bloodOrdered By: Alber Dunn on 10-28-2024 CO2 [Moles/Vol] 12.4 mmol/L Low 21.0-32.0 [facility] Chloride assayOrdered By: Hernesto Dunn on 10-28-2024 Chloride [Moles/Vol] 98 mmol/L 98-108 [facility] Comprehensive Metabolic Prof ilon 10-28-2024 Albumin [Mass/Vol] 2.5 g/dL Low 3.5-5.0 [facility] Comment on above: Performed By: #### L 500.5740, L100.0100, L501.6650 ####[facility] [address] [place], [place], [address] Albumin/Globulin [Mass ratio] 0.7 {ratio} Low 0.9-2.4 [facility] Comment on above: Performed By: #### L 500.4050, L100.0100, L501.2450 ####[facility] [address] [place], [address] ALK PHOS 274 U/L High 40-129 [facility] Comment on above: Performed By: #### L 500.4050, L100.0100, L501.2450 ####[facility] [address] [place], [address] ALT [Catalytic activity/Vol] 23 U/L Normal <=46 [facility] Comment on above: Performed By: #### L 500.4050, L100.0100, L501.2450 ####[facility] [address] [place], [address] AST [Catalytic activity/Vol] 48 U/L High <=37 [facility] Comment on above: Result Comment: Hemo lysis present, Results??could be affected.?? Performed By: #### L 500.4050, L100.0100, L501.2450 ####[facility] [address] [place], [address] Bilirubin [Mass/Vol] 1.86 mg/dL High 0.00-1.30 [facility] Comment on above: Performed By: #### L 500.4050, L100.0100, L501.2450 ####[facility] [address] [place], [address] BUN/CRE 18.8 RATIO Normal 10-20 [facility] Comment on above: Performed By: #### L 500.4050, L100.0100, L501.2450 ####[facility] [address] [place], [address] Calcium [Mass/Vol] 9.2 mg/dL Normal 7.6-11.0 [facility] Comment on above: Performed By: #### L 500.4050, L100.0100, L501.2450 ####[facility] [address] [place], [address] Chloride [Moles/Vol] 98 mmol/L Normal 98-108 [facility] Comment on above: Performed By: #### L 500.4050, L100.0100, L501.2450 ####[facility] [address] [place], [address] CO2 [Moles/Vol] 12.4 mmol/L Low 21.0-32.0 [facility] Comment on above: Performed By: #### L 500.4050, L100.0100, L501.2450 ####[facility] [address] [place], [address] Creatinine [Mass/Vol] 1.33 mg/dL High 0.70-1.20 [facility] Comment on above: Performed By: #### L 500.4050, L100.0100, L501.2450 ####[facility] [address] [place], [address] GAP 17 High 5-15 [facility] Comment on above: Performed By: #### L 500.4050, L100.0100, L501.2450 ####[facility] [address] [place], [address] GFR/1.73 sq M.predicted among non-blacks MDRD (S/P/Bld) [Vol rate/Area] 62 mL/min/{1.73_m2} Normal >60 [facility] Comment on above: Result Comment: mL/m in/1.73m2 CKD-EPI Creatinine Equation (2020) Performed By: #### L 500.4050, L100.0100, L501.2450 ####[facility] [address] [place], [address] Globulin (S) [Mass/Vol] 3.4 g/dL Normal 2.2-4.2 [facility] Comment on above: Performed By: #### L 500.4050, L100.0100, L501.2450 ####[facility] [address] [place], [address] Glucose [Mass/Vol] 338 mg/dL High 70-99 [facility] Comment on above: Performed By: #### L 500.4050, L100.0100, L501.2450 ####[facility] [address] [place], [address] Potassium [Moles/Vol] 4.5 mmol/L Normal 3.3-5.1 [facility] Comment on above: Result Comment: Hemo lysis present, Results??could be affected.?? Performed By: #### L 500.4050, L100.0100, L501.2450 ####[facility] [address] [place], [address] Sodium [Moles/Vol] 128 mmol/L Low 133-145 [facility] Comment on above: Performed By: #### L 500.4050, L100.0100, L501.2450 ####[facility] [address] [place], [address] T PROT 5.9 g/dL Normal 5.9-8.4 [facility] Comment on above: Performed By: #### L 500.4050, L100.0100, L501.2450 ####[facility] [address] [place], [address] Urea nitrogen [Mass/Vol] 25 mg/dL High 4-19 [facility] Comment on above: Performed By: #### L 500.4050, L100.0100, L501.2450 ####[facility] [address] [place], [address] Emergency Department Summary on 10-28-2024 Emergency Department Summary Normal [facility] Eosinophil percentageOrdered By: Alber Dunn on 10-28-2024 Eosinophils/100 WBC (Bld) 1.4 % 0-5 [facility] Epithelial cells.squamous LM Ql (Urine sed)Ordered By: Alber Dunn on 10-28-2024 Epithelial cells.squamous LM.HPF (Urine sed) [#/Area] 5 /[HPF] 0-5 [facility] Erythrocyte distribution wid th ratioOrdered By: Alber Dunn on 10-28-2024 Erythrocyte distribution width (RBC) [Ratio] 19.1 % High 11.6-14.6 [facility] Erythrocyte distribution wid th standard deviationOrdered By: Alber Dunn on 10-28-2024 Erythrocyte distribution width (RBC) [Entitic vol] 62.7 fL High 35.1-43.9 [facility] GFR/1.73 sq M.predicted niki g non-blacks MDRD (S/P/Bld) [Vol rate/Area]Ordered By: Alber Dunn on 10-28-2024 Estimated GFR (MDRD) Non-Af Amer 62 >60 [facility] Comment on above: mL/min/1.73m2 CKD-EP I Creatinine Equation (2020) Glucose Ql (U)Ordered By: Hernesto Dunn on 10-28-2024 Glucose (U) [Mass/Vol] 50 mg/dL High Normal [facility] HbA1c (Bld) [Mass fraction]O rdered By: Hill Wright on 10-28-2024 Hemoglobin A1c percentage 6.7 % >5.7 [facility] Hematocrit Auto (Bld) [Volum e fraction]Ordered By: Alber Dunn on 10-28-2024 Hematocrit (Bld) [Volume fraction] 37.3 % Low 40-54 [facility] Hemoglobin A1c percentageOrd ered By: Hill Wright on 10-28-2024 HbA1c (Bld) [Mass fraction] 6.7 % >5.7 [facility] Hemoglobin measurementOrdere d By: Alber Dunn on 10-28-2024 Hemoglobin (Bld) [Mass/Vol] 12.7 g/dL Low 13.0-16.5 [facility] Immature granulocytes/100 WB C Auto (Bld)Ordered By: Alber Dunn on 10-28-2024 Immature granulocytes/100 WBC (Bld) 1.400 % High 0.0-0.9 [facility] Comment on above: IG% - Immature Granu locytes (promyelocytes, myelocytes and metamyelocytes) > 1% indicates that a LEFT SHIFT is Present. Ketones Test strip Ql (U)Ord ered By: Alber Dunn on 10-28-2024 Ketones Ql (U) 5 mg/dl High Negative [facility] Laboratory - Chemistry and C hemistry - challengeOrdered By: Alber Dunn on 10-28-2024 AST [Catalytic activity/Vol] 48 U/L High <38 [facility] Comment on above: Hemolysis present, R esults could be affected. Laboratory - Hematology and Cell countsOrdered By: Alber Dunn on 10-28-2024 Anisocytosis Ql (Bld) RARE [facility] Lactic Acidon 10-28-2024 Lactate [Moles/Vol] 4.0 mmol/L Invalid Interpretation Code 0.0-2.0 [facility] Comment on above: Order Comment: Y Result Comment: Crit ical Result(s) Called LSPARR at: 2024 by:LAURIE??Results read back by same.Critical Result(s) Called at: by:??Results read back bysame. AMENDED REPORT 10/28/242041 LACTIC ACID previously reported as: 4.0 *H mmol/LCritical Result(s) Called LSPARR at: 2024 by:LAURIE??Results read back by same. Performed By: #### L 503.6005 ####[facility] [address] [place], [address] Lactic acid measurementOrder ed By: Alber Dunn on 10-28-2024 Lactate [Moles/Vol] 4.0 mmol/L High 0.0-2.0 [facility] Comment on above: Critical Result(s) C alled [...] Lipase [Catalytic activity/Vol] 45 U/L Normal 13-75 [facility] Comment on above: Result Comment: Siddhartha bhat note:LIPASE revised reference range effective 22.New Lipase methodology. Expected to produce lower valuesthan the previous assay method.NEW Reference Range: 13 - 75 U/L Performed By: #### L 500.4050, L100.0100, L501.2450 ####[facility] [address] [place], [place], [address] Lipase measurementOrdered By : Alber Dunn on 10-28-2024 Lipase [Catalytic activity/Vol] 45 U/L 13-75 [facility] Comment on above: Please note:LIPASE r evised reference range effective 22. New Lipase methodology. Expected to produce lower values than the previous assay method. NEW Reference Range: 13 - 75 U/L Lymphocytes Auto (Unsp spec) [#/Vol]Ordered By: Alber Dunn on 10-28-2024 Lymphocytes (Bld) [#/Vol] 1.28 10*3/uL 0.83-4.51 [facility] Lymphocytes/100 WBC Auto (Un sp spec)Ordered By: Alber Dunn on 10-28-2024 Lymphocytes/100 WBC (Bld) 5.6 % Low 19-41 [facility] MCV (mean corpuscular volume ) determinationOrdered By: Alber Dunn on 10-28-2024 MCV (RBC) [Entitic vol] 91.2 fL 80-94 [facility] Macrocytes Ql (Bld)Ordered B y: Alber Dunn on 10-28-2024 Macrocytosis RARE [facility] Macrocytes detection RARE [facility] Macrocytes detectionOrdered By: Alber Dunn on 10-28-2024 Macrocytes Ql (Bld) RARE [facility] Manual differential comment Marco Antonio (Bld) [Interp]Ordered By: Alber Dunn on 10-28-2024 Differential Comment SEE COMMENT [facility] Comment on above: MONOCYTOSIS NOTED Mean corpuscular hemoglobin (MCH) determinationOrdered By: Alber Dunn on 10-28-2024 MCH (RBC) [Entitic mass] 31.1 pg 27.0-32.0 [facility] Mean corpuscular hemoglobin concentration (MCHC) determinationOrdered By: Alber Dunn on 10-28-2024 MCHC (RBC) [Mass/Vol] 34.0 g/dL 32-36 [facility] Mean platelet volume determi nationOrdered By: Alber Dunn on 10-28-2024 Platelet mean volume (Bld) [Entitic vol] 12.0 fL 6.2-12.0 [facility] Microscopic analysis of urin e for red blood cells (RBC)Ordered By: Alber Dunn on 10-28-2024 Urine RBC > 100 SEEN /hpf 0-5 [facility] Monocyte percentageOrdered B y: Alber Dunn on 10-28-2024 Monocytes/100 WBC (Bld) 8.4 % 0-10 [facility] Mucus LM Ql (Urine sed)Order ed By: Alber Dunn on 10-28-2024 Mucus Ql (Urine sed) 0 SEEN /hpf [facility] Neutrophil percentageOrdered By: Alber Dunn on 10-28-2024 Neutrophils/100 WBC (Bld) 83.0 % High 47-70 [facility] Nitrite Test strip Ql (U)Ord ered By: Alber Dunn on 10-28-2024 Nitrite Ql (U) Negative Negative [facility] Nucleated red blood cell per centageOrdered By: Alber Dunn on 10-28-2024 Nucleated RBC/100 WBC (Bld) [Ratio] 0 % 0-5 [facility] Osmolality (U) [Osmolality]O rdered By: Hill Wright on 10-28-2024 Osmolality ur 484 mOsm/KG >50 [facility] Osmolality urOrdered By: Hugo Wright on 10-28-2024 Osmolality (U) [Osmolality] 484 mOsm/KG >50 [facility] Ovalocytes LM Ql (Bld)Ordere d By: Alber Dunn on 10-28-2024 Ovalocytes RARE [facility] Pathologist review Marco Antonio (Unsp spec) [Interp]Ordered By: Alber Dunn on 10-28-2024 Differential Pathologist's Review May foll [facility] Platelet countOrdered By: Hernesto Dunn on 10-28-2024 Platelets (Bld) [#/Vol] 142 10*3/uL Low 150-450 [facility] Platelets LM Ql (Bld)Ordered By: Alber Dunn on 10-28-2024 Platelet Estimate ADEQUATE ADEQ [facility] Potassium (Unsp spec) [Mass/ Vol]Ordered By: Alber Dunn on 10-28-2024 Potassium [Moles/Vol] 4.5 mmol/L 3.3-5.1 [facility] Comment on above: Hemolysis present, R esults could be affected. Protein Test strip Ql (U)Ord ered By: Alber Dunn on 10-28-2024 Protein Ql (U) 500 mg/dl High Negative [facility] RBC Auto (Bld) [#/Vol]Ordere d By: Alber Dunn on 10-28-2024 RBC (Bld) [#/Vol] 4.09 10*6/uL Low 4.6-6.2 [facility] RBC morphology finding Nom ( Bld)Ordered By: Alber Dunn on 10-28-2024 Red Blood Cell Morphology N CHROM NORMAL NORM C&C [facility] Serum creatinine measurement (mass/volume)Ordered By: Alber Dunn on 10-28-2024 Creatinine [Mass/Vol] 1.33 mg/dL High 0.70-1.20 [facility] Serum globulin measurementOr dered By: Alber Dunn on 10-28-2024 Globulin (S) [Mass/Vol] 3.4 g/dL 2.2-4.2 [facility] Serum glucose measurement (m ass/volume)Ordered By: Alber Dunn on 10-28-2024 Glucose [Mass/Vol] 338 mg/dL High 70-99 [facility] Serum or plasma alanine thomas otransferase (ALT) measurementOrdered By: Alber Dunn on 10-28-2024 ALT [Catalytic activity/Vol] 23 U/L <47 [facility] Serum or plasma albumin roosevelt urement (mass/volume)Ordered By: Alber Dunn on 10-28-2024 Albumin [Mass/Vol] 2.5 g/dL Low 3.5-5.0 [facility] Serum or plasma albumin/glob ulin mass ratioOrdered By: Alber Dunn on 10-28-2024 Albumin/Globulin [Mass ratio] 0.7 {ratio} Low 0.9-2.4 [facility] Serum or plasma alkaline kendrick sphatase measurementOrdered By: Alber Dunn on 10-28-2024 ALP [Catalytic activity/Vol] 274 U/L High 40-129 [facility] Serum or plasma calcium roosevelt urement (mass/volume)Ordered By: Alber Dunn on 10-28-2024 Calcium [Mass/Vol] 9.2 mg/dL 7.6-11.0 [facility] Serum or plasma urea nitroge n measurement (mass/volume)Ordered By: Alber Dunn on 10-28-2024 Urea nitrogen [Mass/Vol] 25 mg/dL High 4-19 [facility] Sodium levelOrdered By: Alber Dunn on 10-28-2024 Sodium [Moles/Vol] 128 mmol/L Low 133-145 [facility] Total proteinOrdered By: Viraj Dunn on 10-28-2024 Protein [Mass/Vol] 5.9 g/dL 5.9-8.4 [facility] Urinalysis, Completeon 10-28 AMORPHOUS 1+ URATE Normal [facility] Comment on above: Order Comment: COLOR OF URINE MAY AFFECT DIPSTICK RESULTS.REAL ESTATE BRANCH MANAGER TO SPECIFY Performed By: #### L 400.0001 ####[facility] [address] [place] [address] BACTERIA 1+ /hpf Normal None Seen [facility] Comment on above: Order Comment: COLOR OF URINE MAY AFFECT DIPSTICK RESULTS.REAL ESTATE BRANCH MANAGER TO SPECIFY Performed By: #### L 400.0001 ####[facility] [address] [place], [address] EPI,SQUAMOUS 5-10 SEEN Normal 0-5 [facility] Comment on above: Order Comment: COLOR OF URINE MAY AFFECT DIPSTICK RESULTS.REAL ESTATE BRANCH MANAGER TO SPECIFY Performed By: #### L 400.0001 ####[facility] [address] [place], [address] RBC > 100 SEEN Normal 0-5 [facility] Comment on above: Order Comment: COLOR OF URINE MAY AFFECT DIPSTICK RESULTS.REAL ESTATE BRANCH MANAGER TO SPECIFY Performed By: #### L 400.0001 ####[facility] [address] [place], [address] WBC >100 SEEN Normal 0-5 [facility] Comment on above: Order Comment: COLOR OF URINE MAY AFFECT DIPSTICK RESULTS.REAL ESTATE BRANCH MANAGER TO SPECIFY Performed By: #### L 400.0001 ####[facility] [address] [place], [address] Mucus Ql (Urine sed) 0 SEEN Normal [facility] Comment on above: Order Comment: COLOR OF URINE MAY AFFECT DIPSTICK RESULTS.REAL ESTATE BRANCH MANAGER TO SPECIFY Performed By: #### L 400.0001 ####[facility] [address] [place], [address] Urine blood detectionOrdered By: Alber Dunn on 10-28-2024 Urine Occult Blood 250 /ul High Negative [facility] Urine clarityOrdered By: Viraj Dunn on 10-28-2024 Clarity (U) Cloudy Clear [facility] Urine color determinationOrd ered By: Alber Dunn on 10-28-2024 Color (U) Red Yellow [facility] Urine leukocyte esterase det ection by dipstickOrdered By: Alber Dunn on 10-28-2024 Leukocyte esterase Test strip Ql (U) 500 /ul High Negative [facility] Urine pHOrdered By: Alber grajeda on 10-28-2024 pH (U) 6.5 [pH] 5.0 - 8.0 [facility] Urine sediment bacteria coun t by microscopy (number/high power field)Ordered By: Alber Dunn on 10-28-2024 Bacteria LM.HPF (Urine sed) [#/Area] 1 /[HPF] None Seen [facility] Urine specific gravity measu rementOrdered By: Alber Dunn on 10-28-2024 Specific gravity (U) [Rel density] 1.015 1.002-1.030 [facility] Urobilinogen Ql (U)Ordered B y: Alber Dunn on 10-28-2024 Urine Urobilinogen Normal mg/dl Normal [facility] White blood cell (WBC) count Ordered By: Alber Dunn on 10-28-2024 WBC (Bld) [#/Vol] 22.9 10*3/uL High 4.4-11.0 [facility] White blood cell countOrdere d By: Alber Dunn on 10-28-2024 Urine WBC >100 SEEN /hpf 0-5 [facility] APTTon 10-04-2024 aPTT Coag (PPP) [Time] 40 s High Un [facility] Albuminon 10-04-2024 Albumin (Body fld) [Mass/Vol] <0.5 Normal Not established [facility] Comment on above: Order Comment: Venip uncture immediately after or during the administration of Metamizole may lead to falsely low results. Testing should be performed immediately prior to Metamizole dosing. Performed By: #### 2 524-7 #### MIREYA SHAH ([id number]) [facility] ([facility]) [address] [place] [address] Bacteria identifiedon 2024 Bacteria identified Cx Nom (Body fld) Test: Sterile Fluid Culture/Smear Specimen Source: Pleural Specimen Type: Fluid Specimen Date: 10/04/20241713 Result Date: 10/08/2024824 Result Status: Final result Resulting Lab: [facility] [address] [place] [address] CULTURE No growth aerobically and anaerobically STAIN (1+) Rare Polymorphonuclear leukocytes No organisms seen Normal [facility] Comment on above: Performed By: #### 2 524-7 #### MIREYA SHAH ([id number]) [facility] ([facility]) [address] [place] [address] Basic metabolic 2000 panelon 10-04-2024 Anion gap [Moles/Vol] 8 mmol/L Low 10 - 2 0 mmol/L [facility] Calcium [Mass/Vol] 8.1 mg/dL Low 8.6 - 10. 3 mg/dL [facility] Chloride [Moles/Vol] 109 mmol/L High 98 - 10 7 mmol/L [facility] CO2 [Moles/Vol] 24 mmol/L 21 - 32 mmol/L [facility] Creatinine [Mass/Vol] 0.73 mg/dL 0.50 - 1.30 mg/dL [facility] eGFR - PINF [facility] Comment on above: Calculations of patric mated GFR are performed using the 2020 CKD-EPI Study Refit equation without the race variable for the IDMS-Traceable creatinine methods. https://jasn.asnjournals.org/content/early/ASN.2020 085113 Glucose [Mass/Vol] 197 mg/dL High 74 - 99 mg/dL [facility] Potassium [Moles/Vol] 3.9 mmol/L 3.5 - 5.3 mmol/L [facility] Sodium [Moles/Vol] 137 mmol/L 136 - 145 mmol/L [facility] Urea nitrogen [Mass/Vol] 17 mg/dL 6 - 23 mg/dL [facility] Anion gap [Moles/Vol] 8 mmol/L Low 10-20 [facility] Comment on above: Performed By: #### 2 4321-2 #### MIREYA SHAH ([id number]) [facility] ([facility]) [facility] [place] [address] Calcium [Mass/Vol] 8.1 mg/dL Low 8.6-10.3 [facility] Comment on above: Performed By: #### 2 4321-2 #### MIREYA SHAH ([id number]) [facility] ([facility]) [facility] [place] [address] Chloride [Moles/Vol] 109 mmol/L High 98-107 [facility] Comment on above: Performed By: #### 2 4321-2 #### MIREYA SHAH ([id number]) [facility] ([facility]) [address] [place] [address] CO2 [Moles/Vol] 24 mmol/L Normal 21-32 [facility] Comment on above: Performed By: #### 2 4321-2 #### MIREYA SHAH ([id number]) [facility] ([facility]) [address] [place] [address] Creatinine [Mass/Vol] 0.73 mg/dL Normal 0.50-1.30 [facility] Comment on above: Performed By: #### 2 4321-2 #### MIREYA SHAH ([id number]) [facility] ([facility]) [address] [place] [address]2006 GFR/1.73 sq M.predicted MDRD (S/P/Bld) [Vol rate/Area] mL/min/{1.73_m2} Normal >60 [facility] Comment on above: Result Comment: Calc ulations of estimated GFR are performed using the 2020 CKD-EPI Study Refit equation without the race variable for the IDMS-Traceable creatinine methods. https://jasn.asnjournals.org/content/early//ASN.2020 978270 Performed By: #### 2 4321-2 #### MIREYA SHAH ([id number]) [facility] ([facility]) [address] [place] [address] Glucose [Mass/Vol] 197 mg/dL High 74-99 [facility] Comment on above: Performed By: #### 2 4321-2 #### MIREYA SHAH ([id number]) [facility] ([facility]) [address] [place] [address] Potassium [Moles/Vol] 3.9 mmol/L Normal 3.5-5.3 [facility] Comment on above: Performed By: #### 2 4321-2 #### MIREYA SHAH ([id number]) [facility] ([facility]) [address] [place] [address] Sodium [Moles/Vol] 137 mmol/L Normal 136-145 [facility] Comment on above: Performed By: #### 2 4321-2 #### MIREYA SHAH ([id number]) [facility] ([facility]) [address] [place] [address] Urea nitrogen [Mass/Vol] 17 mg/dL Normal 6-23 [facility] Comment on above: Performed By: #### 2 4321-2 #### GOMES ALYSSA ([id number]) [facility] ([facility]) [address] [place] [address] CBC W Auto Differential pane l (Bld)on 10-04-2024 Basophils (Bld) [#/Vol] 0.02 10*3/uL [facility] Basophils/100 WBC (Bld) 0.4 % 0.0 - 2.0 % [facility] Eosinophils (Bld) [#/Vol] 0.15 10*3/uL [facility] Eosinophils/100 WBC (Bld) 2.7 % 0.0 - 6.0 % [facility] Erythrocyte distribution width (RBC) [Ratio] 22.1 % High 11.5 - 14.5 % [facility] Hematocrit (Bld) [Volume fraction] 29.8 % Low 41.0 - 52.0 % [facility] Hemoglobin (Bld) [Mass/Vol] 9.3 g/dL Low 13.5 - 17.5 g/dL [facility] Immature granulocytes (Bld) [#/Vol] 0.01 10*3/uL [facility] Immature granulocytes/100 WBC (Bld) 0.2 % 0.0 - 0.9 % [facility] Comment on above: Immature Granulocyte Count (IG) includes promyelocytes, myelocytes and metamyelocytes but does not include bands. Percent differential counts (%) should be interpreted in the context of the absolute cell counts (cells/UL). Interpretation and review of laboratory results Abnormal [facility] Lymphocytes (Bld) [#/Vol] 0.64 10*3/uL Low [facility] Lymphocytes/100 WBC (Bld) 11.5 % 13.0 - 44.0 % [facility] MCH (RBC) [Entitic mass] 30 pg 26.0 - 34.0 pg [facility] MCHC (RBC) [Mass/Vol] 31.2 g/dL Low 32.0 - 36.0 g/dL [facility] MCV (RBC) [Entitic vol] 96 fL 80 - 100 fL [facility] Monocytes (Bld) [#/Vol] 0.46 10*3/uL [facility] Monocytes/100 WBC (Bld) 8.3 % 2.0 - 10.0 % [facility] Neutrophils (Bld) [#/Vol] 4.28 10*3/uL [facility] Comment on above: Percent differential counts (%) should be interpreted in the context of the absolute cell counts (cells/uL). Neutrophils/100 WBC (Bld) 76.9 % 40.0 - 80.0 % [facility] Nucleated RBC/100 WBC (Bld) [Ratio] 0 % [facility] Platelets (Bld) [#/Vol] 65 10*3/uL Low U [facility] RBC (Bld) [#/Vol] 3.1 10*6/uL Low [facility] WBC (Bld) [#/Vol] 5.6 10*3/uL [facility] Basophils (Bld) [#/Vol] 0.02 x10*3/uL Normal 0.00-0.10 [facility] Comment on above: Performed By: #### 5 7021-8 #### MIREYA SHAH ([id number]) [facility] ([facility]) [facility] [place] [address] Basophils/100 WBC (Bld) 0.4 % Normal 0.0-2.0 U [facility] Comment on above: Performed By: #### 5 7021-8 #### MIREYA SHAH ([id number]) [facility] ([facility]) [facility] [place] [address] Eosinophils (Bld) [#/Vol] 0.15 x10*3/uL Normal 0.00-0.70 [facility] Comment on above: Performed By: #### 5 7021-8 #### MIREYA SHAH ([id number]) [facility] ([facility]) [facility] [place] [address] Eosinophils/100 WBC (Bld) 2.7 % Normal 0.0-6.0 [facility] Comment on above: Performed By: #### 5 7021-8 #### MIREYA SHAH ([id number]) [facility] ([facility]) [address] [place] [address] Erythrocyte distribution width (RBC) [Ratio] 22.1 % High 11.5-14.5 [facility] Comment on above: Performed By: #### 5 7021-8 #### MIREYA SHAH ([id number]) [facility] ([facility]) [address] [place] [address] Hematocrit (Bld) [Volume fraction] 29.8 % Low 41.0-52.0 [facility] Comment on above: Performed By: #### 5 7021-8 #### MIREYA SHAH ([id number]) [facility] ([facility]) [address] [place] [address] Hemoglobin (Bld) [Mass/Vol] 9.3 g/dL Low 13.5-17.5 [facility] Comment on above: Performed By: #### 5 7021-8 #### MIREYA SHAH ([id number]) [facility] ([facility]) [address] [place] [address] Immature granulocytes (Bld) [#/Vol] 0.01 x10*3/uL Normal 0.00-0.70 [facility] Comment on above: Performed By: #### 5 7021-8 #### MIREYA SHAH ([id number]) [facility] ([facility]) [address] [place] [address] Immature granulocytes/100 WBC (Bld) 0.2 % Normal 0.0-0.9 [facility] Comment on above: Result Comment: Danielle ture Granulocyte Count (IG) includes promyelocytes, myelocytes and metamyelocytes but does not include bands. Percent differential counts (%) should be interpreted in the context of the absolute cell counts (cells/UL). Performed By: #### 5 7021-8 #### MIREYA SHAH ([id number]) [facility] ([facility]) [address] [place] [address] Lymphocytes (Bld) [#/Vol] 0.64 x10*3/uL Low 1.20-4.80 [facility] Comment on above: Performed By: #### 5 7021-8 #### MIREYA SHAH ([id number]) [facility] ([facility]) [address] [place] [address]402 Lymphocytes/100 WBC (Bld) 11.5 % Normal 13.0-44.0 [facility] Comment on above: Performed By: #### 5 7021-8 #### MIREYA SHAH ([id number]) [facility] ([facility]) [address] [place] [address] 13439 MCH (RBC) [Entitic mass] 30.0 pg Normal 26.0-34.0 [facility] Comment on above: Performed By: #### 5 7021-8 #### MIREYA SHAH ([id number]) [facility] ([facility]) [address] [place] [address] 33519 MCHC (RBC) [Mass/Vol] 31.2 g/dL Low 32.0-36.0 [facility] Comment on above: Performed By: #### 5 7021-8 #### MIREYA SHAH ([id number]) [facility] ([facility]) [address] [place] [address] 57827 MCV (RBC) [Entitic vol] 96 fL Normal 80-100 U [facility] Comment on above: Performed By: #### 5 7021-8 #### MIREYA SHAH ([id number]) [facility] ([facility]) [address] [place] [address] 12157 Monocytes (Bld) [#/Vol] 0.46 x10*3/uL Normal 0.10-1.00 [facility] Comment on above: Performed By: #### 5 7021-8 #### MIREYA SHAH ([id number]) [facility] ([facility]) [address] [place] [address] 28540 Monocytes/100 WBC (Bld) 8.3 % Normal 2.0-10.0 U [facility] Comment on above: Performed By: #### 5 7021-8 #### MIREYA SHAH ([id number]) [facility] ([facility]) [address] [place] [address] 29650 Neutrophils (Bld) [#/Vol] 4.28 x10*3/uL Normal 1.20-7.70 [facility] Comment on above: Result Comment: Perc ent differential counts (%) should be interpreted in the context of the absolute cell counts (cells/uL). Performed By: #### 5 7021-8 #### MIREYA SHAH ([id number]) [facility] ([facility]) [address] [place] [address] 07386 Neutrophils/100 WBC (Bld) 76.9 % Normal 40.0-80.0 [facility] Comment on above: Performed By: #### 5 7021-8 #### MIREYA SHAH ([id number]) [facility] ([facility]) [address] [place] [address] 92597 Nucleated RBC/100 WBC (Bld) [Ratio] 0.0 /100 WBCs Normal 0.0-0.0 [facility] Comment on above: Performed By: #### 5 7021-8 #### MIREYA SHAH ([id number]) [facility] ([facility]) [address] [place] [address] 44085 Platelets (Bld) [#/Vol] 65 x10*3/uL Low 150-450 [facility] Comment on above: Performed By: #### 5 7021-8 #### MIREYA SHAH ([id number]) [facility] ([facility]) [address] [place] [address] 89171 RBC (Bld) [#/Vol] 3.10 x10*6/uL Low 4.50-5.90 [facility] Comment on above: Performed By: #### 5 7021-8 #### MIREYA SHAH ([id number]) [facility] ([facility]) [address] [place] [address] 29401 WBC (Bld) [#/Vol] 5.6 x10*3/uL Normal 4.4-11.3 [facility] Comment on above: Performed By: #### 5 7021-8 #### MIREYA SHAH ([id number]) [facility] ([facility]) [address] [place] [address] CT ABDOMEN PELVIS W IV CONTR [place] 10-04-2024 CT ABDOMEN PELVIS W IV CONTRAST Interpreted By: Yohana Huang, STUDY: CT ABDOMEN PELVIS W IV CONTRAST; 10/04/2024 2:16 pm INDICATION: Signs/Symptoms:generaliz ed abdominal pain, hx of cirrhosis, recent paracentesis. COMPARISON: None. ACCESSION NUMBER(S): [id number] ORDERING CLINICIAN: SRIRAM OLEARY TECHNIQUE: CT of [...] Yohana Huang 10/04/2024 2:28 PM Dictation workstation: [id number] [facility] CT Abdomen and Pelvis W cont rast Jamari 10-04-2024 Coronary artery calcifications. Anasarca. Ascites. Small irregular liver consistent with cirrhosis. Extensive collateral vessels. Enlarged spleen. Ventral and inguinal hernias containing ascitic fluid. MACRO: none Signed by: Yohana Huang 10/04/2024 2:28 PM Dictation workstation: [id number] Interpreted By: Yohana Chen, STUDY: CT ABDOMEN PELVIS W IV CONTRAST; 10/04/2024 2:16 pm INDICATION: Signs/Symptoms:generaliz ed abdominal pain, hx of cirrhosis, recent paracentesis. COMPARISON: None. ACCESSION NUMBER(S): [id number] ORDERING CLINICIAN: SRIRAM OLEARY TECHNIQUE: CT of [...] cirrhosis, recent paracentesis. COMPARISON: None. ACCESSION NUMBER(S): [id number] ORDERING CLINICIAN: SRIRAM OLEARY TECHNIQUE: CT of [...] Yohana Huang 10/04/2024 2:28 PM Dictation workstation: [id number] [facility] Work Phone: Radiology Study observation (narrative) [facility] Work Phone: CT Abdomen and Pelvis W cont rast IVOrdered By: Yohana Huang on 10-04-2024 [facility] Work Phone: Cell count panel (Body fld)O rdered By: Fortino Mcgee on 10-04-2024 Clarity (Body fld) Hazy Abnormal Clear [facility] Color (Body fld) Straw Colorless, Straw, Yellow [facility] Interpretation and review of laboratory results Abnormal [facility] RBC Auto (Body fld) [#/Vol] 2000 /uL see comment [facility] WBC (Body fld) [#/Vol] 0.058 10*3/uL See Sarath t [facility] Body Fluid cell coun t reference ranges have not been established by [facility]. Reference ranges provided are based on published references. [facility] Cell count panel (Body fld)o n 10-04-2024 Clarity (Body fld) Hazy Abnormal Clear [facility] Comment on above: Order Comment: Body Fluid cell count reference ranges have not been established by [facility]. Reference ranges provided are based on published references. Performed By: #### 3 4556-1 #### MIREYA SHAH ([id number]) [facility] ([facility]) [address] [place] [address] Color (Body fld) Straw Normal Colorless, Straw, Yellow [facility] Comment on above: Order Comment: Body Fluid cell count reference ranges have not been established by [facility]. Reference ranges provided are based on published references. Performed By: #### 3 4556-1 #### MIREYA SHAH ([id number]) [facility] ([facility]) [address] [place] [address] RBC Auto (Body fld) [#/Vol] 2000 /uL Normal see comment [facility] Comment on above: Order Comment: Body Fluid cell count reference ranges have not been established by [facility]. Reference ranges provided are based on published references. Performed By: #### 3 4556-1 #### MIREYA SHAH ([id number]) [facility] ([facility]) [facility] [place] [address] WBC (Body fld) [#/Vol] 0.058 10*3/uL Normal See Commevelin alex [facility] Comment on above: Order Comment: Body Fluid cell count reference ranges have not been established by [facility]. Reference ranges provided are based on published references. Performed By: #### 3 4556-1 #### MIREYA SHAH ([id number]) [facility] ([facility]) [facility] [place] [id number] Coagulation surface inducedo n 10-04-2024 aPTT Coag (PPP) [Time] 40 s High 26-36 Un [facility] Comment on above: Order Comment: The A PTT is no longer used for monitoring Unfractionated Heparin Therapy. For monitoring Heparin Therapy, use the Heparin Assay. Performed By: #### 1 4979-9 #### MIREYA SHAH ([id number]) [facility] ([facility]) [address] [place] [address] Coagulation tissue factor in ducedon 10-04-2024 PT Coag (PPP) [Time] 23.6 s High 9.8-12.4 [facility] Comment on above: Performed By: #### 5 902-2 #### MIREYA SHAH ([id number]) [facility] ([facility]) [address] [place], [place] [id number] Differential panel (Body fld )on 10-04-2024 Basophils/100 WBC (Body fld) 0 % not established [facility] Blasts/100 WBC Manual cnt (Body fld) 0 % not established [facility] Cells Counted Total (Body fld) [#] 100 [facility] Eosinophils/100 WBC Manual cnt (Body fld) 0 % see comment [facility] Immature Granulocytes %, Manual, Fluid 0 % not established [facility] Interpretation and review of laboratory results Abnormal [facility] Lymphocytes/100 WBC Manual cnt (Body fld) 19 % see comment [facility] Monocytes+Macrophages/1 00 WBC Manual cnt (Body fld) 17 % see comment [facility] Neutrophils/100 WBC (Body fld) 40 % see comment [facility] Other cells/100 WBC Manual cnt (Body fld) 24 % High not established [facility] Comment on above: Mesothelial cells no tianna by tech Plasma cells/100 WBC Manual cnt (Body fld) 0 % not established [facility] Body Fluid cell differential reference ranges have not been established by [facility]. Reference ranges provided are based on published references. [facility] Basophils/100 WBC (Body fld) 0 % Normal not established [facility] Comment on above: Order Comment: Body Fluid cell differential reference ranges have not been established by [facility] [facility]. Reference ranges provided are based on published references. Performed By: #### 2 9580-8 #### MIREYA SHAH ([id number]) [facility] ([facility]) [address] [place] [address] Blasts/100 WBC Manual cnt (Body fld) 0 % Normal not established [facility] Comment on above: Order Comment: Body Fluid cell differential reference ranges have not been established by [facility]. Reference ranges provided are based on published references. Performed By: #### 2 9580-8 #### MIREYA SHAH ([id number]) [facility] ([facility]) [address] [place] [address] Cells Counted Total (Body fld) [#] 100 Normal [facility] Comment on above: Order Comment: Body Fluid cell differential reference ranges have not been established by [facility]. Reference ranges provided are based on published references. Performed By: #### 2 9580-8 #### MIREYA SHAH ([id number]) [facility] ([facility]) [address] [place] [address] Eosinophils/100 WBC Manual cnt (Body fld) 0 % Normal see comment [facility] Comment on above: Order Comment: Body Fluid cell differential reference ranges have not been established by [facility]. Reference ranges provided are based on published references. Performed By: #### 2 9580-8 #### MIREYA SHAH ([id number]) [facility] ([facility]) [address] [place] [address] IMMATURE GRANULOCYTES IN FLUID 0 % Normal not established [facility] Comment on above: Order Comment: Body Fluid cell differential reference ranges have not been established by [facility]. Reference ranges provided are based on published references. Performed By: #### 2 9580-8 #### MIREYA SHAH ([id number]) [facility] ([facility]) [address] [place] [address] Lymphocytes/100 WBC Manual cnt (Body fld) 19 % Normal see comment [facility] Comment on above: Order Comment: Body Fluid cell differential reference ranges have not been established by [facility]. Reference ranges provided are based on published references. Performed By: #### 2 9580-8 #### MIREYA SHAH ([id number]) [facility] ([facility]) [address] [place] [address] Monocytes+Macrophages/1 00 WBC Manual cnt (Body fld) 17 % Normal see comment [facility] Comment on above: Order Comment: Body Fluid cell differential reference ranges have not been established by [facility]. Reference ranges provided are based on published references. Performed By: #### 2 9580-8 #### MIREYA SHAH ([id number]) [facility] ([facility]) [address] [place] [address] Neutrophils/100 WBC (Body fld) 40 % Normal see comment [facility] Comment on above: Order Comment: Body Fluid cell differential reference ranges have not been established by [facility]. Reference ranges provided are based on published references. Performed By: #### 2 9580-8 #### MIREYA SHAH ([id number]) [facility] ([facility]) [address] [place] [address] Other cells/100 WBC Manual cnt (Body fld) 24 % High not established [facility] Comment on above: Order Comment: Body Fluid cell differential reference ranges have not been established by [facility]. Reference ranges provided are based on published references. Result Comment: Meso thelial cells noted by tech Performed By: #### 2 9580-8 #### MIREYA SHAH ([id number]) [facility] ([facility]) [facility] [place] [address] Plasma cells/100 WBC Manual cnt (Body fld) 0 % Normal not established [facility] Comment on above: Order Comment: Body Fluid cell differential reference ranges have not been established by [facility]. Reference ranges provided are based on published references. Performed By: #### 2 9580-8 #### MIREYA SHAH ([id number]) [facility] ([facility]) [facility] [place] [address] Glucoseon 10-04-2024 Glucose (Body fld) [Mass/Vol] 200 mg/dL Normal Not established [facility] Comment on above: Order Comment: Venip uncture immediately after or during the administration of Metamizole may lead to falsely low results. Testing should be performed immediately prior to Metamizole dosing. Performed By: #### 2 524-7 #### MIREYA SHAH ([id number]) [facility] ([facility]) [address] [place] [address] Hepatic function 2000 panelo n 10-04-2024 Albumin BCP dye [Mass/Vol] 2.4 g/dL Low 3.4 - 5.0 g/dL [facility] ALP [Catalytic activity/Vol] 212 U/L High 33 - 120 U/L [facility] ALT With P-5'-P [Catalytic activity/Vol] 46 U/L 10 - 52 U/L [facility] Comment on above: Patients treated wit h Sulfasalazine may generate falsely decreased results for ALT. AST With P-5'-P [Catalytic activity/Vol] 49 U/L High 9 - 39 U/L [facility] Bilirubin [Mass/Vol] 1.8 mg/dL High 0.0 - 1 .2 mg/dL [facility] Bilirubin.direct [Mass/Vol] 0.7 mg/dL High 0.0 - 0.3 mg/dL [facility] Protein [Mass/Vol] 5.7 g/dL Low 6.4 - 8.2 g/dL [facility] Albumin BCP dye [Mass/Vol] 2.4 g/dL Low 3.4-5.0 [facility] Comment on above: Performed By: #### 2 4325-3 #### MIREYA SHAH ([id number]) [facility] ([facility]) [facility] [place] [address] ALP [Catalytic activity/Vol] 212 U/L High 33-120 [facility] Comment on above: Performed By: #### 2 4325-3 #### MIREYA SHAH ([id number]) [facility] ([facility]) [address] [place] [address] ALT With P-5'-P [Catalytic activity/Vol] 46 U/L Normal 10-52 [facility] Comment on above: Result Comment: Argenis ents treated with Sulfasalazine may generate falsely decreased results for ALT. Performed By: #### 2 4325-3 #### MIREYA SHAH ([id number]) [facility] ([facility]) [address] [place] [address] AST With P-5'-P [Catalytic activity/Vol] 49 U/L High 9-39 [facility] Comment on above: Performed By: #### 2 4324-3 #### MIREYA SHAH ([id number]) [facility] ([facility]) [address] [place] [address] Bilirubin [Mass/Vol] 1.8 mg/dL High 0.0-1.2 [facility] Comment on above: Performed By: #### 2 5-3 #### MIREYA SHAH ([id number]) [facility] ([facility]) [address] [place] [address] Bilirubin.direct [Mass/Vol] 0.7 mg/dL High 0.0-0.3 [facility] Comment on above: Performed By: #### 2 5-3 #### MIREYA SHAH ([id number]) [facility] ([facility]) [address] [place] [address] Protein [Mass/Vol] 5.7 g/dL Low 6.4-8.2 [facility] Comment on above: Performed By: #### 2 5-3 #### MIREYA SHAH ([id number]) [facility] ([facility]) [address] [place] [address] Lactateon 10-04-2024 Lactate [Moles/Vol] 2 mmol/L 0.4 - 2. 0 mmol/L [facility] Lactate [Moles/Vol] 2.0 mmol/L Normal 0.4-2.0 [facility] Comment on above: Order Comment: Venip uncture immediately after or during the administration of Metamizole may lead to falsely low results. Testing should be performed immediately prior to Metamizole dosing. Performed By: #### 2 524-7 #### MIREYA SHAH ([id number]) [facility] ([facility]) [address] [place] [address] Lactate [Moles/Vol]on 2024 Interpretation and review of laboratory results Normal [facility] Venipuncture immedia tely after or during the administration of Metamizole may lead to falsely low results. Testing should be performed immediately prior to Metamizole dosing. [facility] Lactate dehydrogenaseon LDH Lactate to pyruvate reaction (Body fld) [Catalytic activity/Vol] <25 Normal Not established. [facility] Comment on above: Order Comment: Venip uncture immediately after or during the administration of Metamizole may lead to falsely low results. Testing should be performed immediately prior to Metamizole dosing. Performed By: #### 2 524-7 #### MIREYA SHAH ([id number]) [facility] ([facility]) [address] [place] [address] Lipaseon 10-04-2024 Lipase [Catalytic activity/Vol] 56 U/L 9 - 82 U/L [facility] Lipase [Catalytic activity/V ol]on 10-04-2024 Interpretation and review of laboratory results Normal [facility] Venipuncture immedia tely after or during the administration of Metamizole may lead to falsely low results. Testing should be performed immediately prior to Metamizole dosing. [facility] No Panel Informationon 10-04 Interpretation and review of laboratory results Abnormal [facility] Interpretation and review of laboratory results Abnormal [facility] Non-nurse gynecology cytology studyon Non-gynecological cytology method study Pathology report.total SEE COMMENT Non-gynecologic Cytology Case: [id number] Authorizing Provider: Joey Huang DO Collected: 10/04/2024 4104 Ordering Location: [facility] Received: 10/05/[address] [place] [address] Emergency Medicine Pathologist: Jarvis Guzman MD Specimen: ASCITIC FLUID Path report.final diagnosis SEE COMMENT A. ASCITIC FLUID: - NO MALIGNANT CELLS IDENTIFIED. Note: This case has been evaluated using a concentrated (ThinPrep) preparation. Laboratory comment SEE COMMENT Slide(s) initially screened by ABEL Castro at [address] [id number] By the signature on this report, the [...] Block) A1-1 Pap Stain NGYN ThinPrep Normal [facility] PT Coag (PPP) [Time]on 10-04 INR Coag (PPP) [Relative time] 2.1 {INR} High 0.9 - 1.1 [facility] INR Coag (PPP) [Relative time] 2.1 High 0.9-1.1 [facility] Comment on above: Performed By: #### 5 902-2 #### GOMES ALYSSA ([id number]) [facility] ([facility]) [address] [place] [address] Paracentesison 10-04-2024 Joey Huang DO 10/04/2024 5:18 PM Paracentesis Date/Time: 10/04/2024 5:17 PM Performed by: Joey Huang DO Authorized by: Joey Huang DO Consent: Consent obtained: Written Consent given by: Patient Risks, benefits, and alternatives were discussed: yes Risks discussed: Bleeding, bowel perforation and infection Alternatives discussed: No treatment Mckee protocol: Procedure explained and questions answered to [...] Adhesive bandage Post-procedure details: Procedure completion: Tolerated [facility] Work Phone: [facility] Work Phone: Proteinon 10-04-2024 Protein (Body fld) [Mass/Vol] g/dL Normal Not established [facility] Comment on above: Order Comment: Venip uncture immediately after or during the administration of Metamizole may lead to falsely low results. Testing should be performed immediately prior to Metamizole dosing. Performed By: #### 2 524-7 #### MIREYA SHAH ([id number]) [facility] ([facility]) [facility] [place] [address] Protime-INRon 10-04-2024 PT Coag (PPP) [Time] 23.6 s [facility] Triacylglycerol lipaseon Lipase [Catalytic activity/Vol] 56 U/L Normal 9-82 [facility] Comment on above: Order Comment: Venip uncture immediately after or during the administration of Metamizole may lead to falsely low results. Testing should be performed immediately prior to Metamizole dosing. Performed By: #### 3 040-3 #### MIREYA SHAH ([id number]) [facility] ([facility]) [facility] [place] [address] aPTT Coag (PPP) [Time]on The APTT is no longe r used for monitoring Unfractionated Heparin Therapy. For monitoring Heparin Therapy, use the Heparin Assay. [facility] pHon 10-04-2024 pH (Body fld) 7.82 Normal See Below [facility] Comment on above: Order Comment: Venip uncture immediately after or during the administration of Metamizole may lead to falsely low results. Testing should be performed immediately prior to Metamizole dosing. Performed By: #### 2 524-7 #### MIREYA ALYSSA ([id number]) [facility] ([facility]) [address] [place] [address] Operative Reporton Operative Report Normal [facility] Bedside Glucoseon 09-14-2024 FINGERSTICK GLU 134 mg/dL High 74-106 [facility] Comment on above: Result Comment: BRISA GEMENT OF PATIENT CARE PER NURSING PROTOCOL Performed By: #### L 501.080 ####[facility] [address] [place], [address] FINGERSTICK GLU 168 mg/dL High [facility]106 [facility] Comment on above: Result Comment: BRISA GEMENT OF PATIENT CARE PER NURSING PROTOCOL Performed By: #### L 501.080 ####[facility] [address] [place], [address] FINGERSTICK GLU 176 mg/dL High [facility]106 [facility] Comment on above: Result Comment: BRISA GEMENT OF PATIENT CARE PER NURSING PROTOCOL Performed By: #### L 501.080 ####[facility] [address] [place], [address] FINGERSTICK GLU 118 mg/dL High [address] [place] [address] Comment on above: Result Comment: BRISA GEMENT OF PATIENT CARE PER NURSING PROTOCOL Performed By: #### L 501.080 ####[facility] [address] [place], [address] FINGERSTICK GLU 191 mg/dL High [facility]106 [facility] Comment on above: Result Comment: BRISA GEMENT OF PATIENT CARE PER NURSING PROTOCOL Performed By: #### L 501.080 ####[facility] [address] [place], [address] [facility] deOrdered By: Boone Izquierdo on 09-14-2024 Bedside Glucose (Misc Panel) 134 mg/dL High 74-106 [facility] Comment on above: MANAGEMENT OF PATIEN T CARE PER NURSING PROTOCOL Glucose [Mass/Vol] 134 mg/dL High 74-106 [facility] Glucose measurement at bedside 134 mg/dL High 74-106 [facility] Bedside Glucoseon 09-13-2024 FINGERSTICK GLU 191 mg/dL High 74-106 [facility] Comment on above: Result Comment: BRISA GEMENT OF PATIENT CARE PER NURSING PROTOCOL Performed By: #### L 501.080 ####[facility] [address] [place], [address] FINGERSTICK GLU 185 mg/dL High 74-106 [facility] Comment on above: Result Comment: BRISA GEMENT OF PATIENT CARE PER NURSING PROTOCOL Performed By: #### L 501.080 ####[facility] [address] [place], [address] FINGERSTICK GLU 146 mg/dL High 74-106 [facility] Comment on above: Result Comment: BRISA GEMENT OF PATIENT CARE PER NURSING PROTOCOL Performed By: #### L 501.080 ####[facility] [address] [place], [address] Basic Metabolic Profile (BMP )on 09-12-2024 BUN/CRE 7.6 RATIO Low 10-20 [facility] Comment on above: Performed By: #### L 500.2500, L100.0500 ####[facility] [address] [place], [address] CA,Total 8.1 mg/dL Low 8.5-10.1 [facility] Comment on above: Performed By: #### L 500.2500, L100.0500 ####[facility] [address] [place], [address] Chloride [Moles/Vol] 109 mmol/L High 98-107 [facility] Comment on above: Performed By: #### L 500.2500, L100.0500 ####[facility] [address] [place], [address] CO2 [Moles/Vol] 20.0 mmol/L Low 21.0-32.0 [facility] Comment on above: Performed By: #### L 500.2500, L100.0500 ####[facility] [address] [place], [address] Creatinine [Mass/Vol] 0.92 mg/dL Normal 0.70-1.30 [facility] Comment on above: Result Comment: The validity of the calculated GFR GFRAA in patients over70 years has not been determined. Clinical correlation isessential. Performed By: #### L 500.2500, L100.0500 ####[facility] [address] [place], [address] ECRCL 71.80 ml/min Normal [facility] Comment on above: Performed By: #### L 500.2500, L100.0500 ####[facility] [address] [place], [address] EST GFR - AA 108 mL/min Normal >60 [facility] Comment on above: Result Comment: Afri can Venezuelan GFR Calc Performed By: #### L 500.2500, L100.0500 ####[facility] [address] [place], [address] GAP 7 Normal 5-15 [facility] Comment on above: Performed By: #### L 500.2500, L100.0500 ####[facility] [address] [place], [address] GFR/1.73 sq M.predicted among non-blacks MDRD (S/P/Bld) [Vol rate/Area] 89 mL/min/{1.73_m2} Normal >60 [facility] Comment on above: Result Comment: Non- GFR Calc Performed By: #### L 500.2500, L100.0500 ####[facility] [address] [place], [address] Glucose [Mass/Vol] 149 mg/dL High 74-106 [facility] Comment on above: Result Comment: Fast ing Glucose result greater than or equal to 126 mg/dLsuggests DIABETES MELLITUS per A.D.A. criteria. Performed By: #### L 500.2500, L100.0500 ####[facility] [address] [place], [address] Potassium [Moles/Vol] 3.4 mmol/L Low 3.5-5.1 [facility] Comment on above: Performed By: #### L 500.2500, L100.0500 ####[facility] [address] [place], [address] Sodium [Moles/Vol] 136 mmol/L Normal 136-145 [facility] Comment on above: Performed By: #### L 500.2500, L100.0500 ####[facility] [address] [place], [address] Urea nitrogen [Mass/Vol] 7 mg/dL Normal 7-18 [facility] Comment on above: Performed By: #### L 500.2500, L100.0500 ####[facility] [address] [place], [address] Bedside Glucoseon 09-12-2024 FINGERSTICK GLU 230 mg/dL High 74-106 [facility] Comment on above: Result Comment: BRISA GEMENT OF PATIENT CARE PER NURSING PROTOCOL Performed By: #### L 501.080 ####[facility] [address] [place], [address] FINGERSTICK GLU 182 mg/dL High 74-106 [facility] Comment on above: Result Comment: BRISA GEMENT OF PATIENT CARE PER NURSING PROTOCOL Performed By: #### L 501.080 ####[facility] [address] [place], [address] FINGERSTICK GLU 195 mg/dL High 74-106 [facility] Comment on above: Result Comment: BRISA GEMENT OF PATIENT CARE PER NURSING PROTOCOL Performed By: #### L 501.080 ####[facility] [address] [place], [address] FINGERSTICK GLU 129 mg/dL High 74-106 [facility] Comment on above: Result Comment: BRISA MOROCHO OF PATIENT CARE PER NURSING PROTOCOL Performed By: #### L 501.080 ####[facility] [address] [place], [address] Blood urea nitrogen (BUN)/cr eatinine ratioOrdered By: Jae Ash on 09-12-2024 Urea nitrogen/Creatinine [Mass ratio] 7.6 mg/mg Low 10-20 [facility] Blood urea nitrogen (BUN)/creatinine ratio 7.6 RATIO Low 10-20 [facility] CBC-Complete Blood Cnt No Di ffon 09-12-2024 Erythrocyte distribution width (RBC) [Ratio] 19.7 % High 11.6-14.6 [facility] Comment on above: Performed By: #### L 500.2500, L100.0500 ####[facility] [address] [place], [address] Hematocrit (Bld) [Volume fraction] 25.8 % Low 40-54 [facility] Comment on above: Performed By: #### L 500.2500, L100.0500 ####[facility] [address] [place], [address] Hemoglobin (Bld) [Mass/Vol] 8.1 g/dL Low 13.0-16.5 [facility] Comment on above: Performed By: #### L 500.2500, L100.0500 ####[facility] [address] [place], [address] MCH (RBC) [Entitic mass] 28.4 pg Normal 27.0-32.0 [facility] Comment on above: Performed By: #### L 500.2500, L100.0500 ####[facility] [address] [place], [address] MCHC (RBC) [Mass/Vol] 31.4 g/dL Low 32-36 [facility] Comment on above: Performed By: #### L 500.2500, L100.0500 ####[facility] [address] [place], [address] MCV (RBC) [Entitic vol] 90.5 fL Normal 80-94 [facility] Comment on above: Performed By: #### L 500.2500, L100.0500 ####[facility] [address] [place], [address] Platelet mean volume (Bld) [Entitic vol] 11.9 fL Normal 6.2-12.0 [facility] Comment on above: Performed By: #### L 500.2500, L100.0500 ####[facility] [address] [place], [address] Platelets (Bld) [#/Vol] 115 10*3/uL Low 150-450 [facility] Comment on above: Performed By: #### L 500.2500, L100.0500 ####[facility] [address] [place], [address] RBC (Bld) [#/Vol] 2.85 10*6/uL Low 4.6-6.2 [facility] Comment on above: Performed By: #### L 500.2500, L100.0500 ####[facility] [address] [place], [address] RDW SD 63.5 fl High 35.1-43.9 [facility] Comment on above: Performed By: #### L 500.2500, L100.0500 ####[facility] [address] [place], [address] WBC (Bld) [#/Vol] 7.4 10*3/uL Normal 4.4-11.0 [facility] Comment on above: Performed By: #### L 500.2500, L100.0500 ####[facility] [address] [place], [address] Calcium [Mass/Vol]Ordered By : Jae Ash on 09-12-2024 Serum or plasma calcium measurement (mass/volume) 8.1 mg/dL Low 8.5-10.1 [facility] Carbon dioxide measurementOr dered By: Jae Ash on 09-12-2024 CO2 [Moles/Vol] 20.0 mmol/L Low 21.0-32.0 [facility] Carbon dioxide measurement 20.0 mmol/L Low 21.0-32.0 [facility] Chloride measurementOrdered By: Jae Ash on 09-12-2024 Chloride [Moles/Vol] 109 mmol/L High 98-107 [facility] Chloride measurement 109 mmol/L High 98-107 [facility] Creatinine [Mass/Vol]Ordered By: Jae Ash on 09-12-2024 Serum or plasma creatinine measurement (mass/volume) 0.92 mg/dL 0.70-1.30 [facility] Erythrocyte distribution wid th (RBC) [Ratio]Ordered By: Jae Ash on 09-12-2024 Erythrocyte distribution width ratio 19.7 % High 11.6-14.6 [facility] Erythrocyte distribution width standard deviation 63.5 fl High 35.1-43.9 [facility] Erythrocyte distribution wid th ratioOrdered By: Jae Ash on 09-12-2024 Erythrocyte distribution width (RBC) [Ratio] 19.7 % High 11.6-14.6 [facility] Erythrocyte distribution wid th standard deviationOrdered By: Jae Ash on 09-12-2024 Erythrocyte distribution width (RBC) [Entitic vol] 63.5 fL High 35.1-43.9 [facility] Erythrocyte distribution width (RBC) [Ratio] 63.5 fl High 35.1-43.9 [facility] Estimated glomerular filtrat ion rate (GFR) AmericanOrdered By: Jae Ash on 09-12-2024 Estimated GFR (MDRD) Amer 108 mL/min >60 [facility] Comment on above: GFR Calc Estimated glomerular filtration rate (GFR) 108 mL/min >60 [facility] [facility] Estimation of creatinine carolina aranceOrdered By: Jae Ash on 09-12-2024 Estimated Creatinine Clearance Calc 71.80 ml/min [facility] Estimation of creatinine clearance 71.80 ml/min [facility] Glomerular filtration rate ( GFR) estimationOrdered By: Jae Ash on 09-12-2024 Estimated GFR (MDRD) Non-Af Amer 89 mL/min >60 [facility] Comment on above: Non- GFR Calc GFR/1.73 sq M.predicted among non-blacks MDRD (S/P/Bld) [Vol rate/Area] 89 mL/min/{1.73_m2} >60 [facility] Glomerular filtration rate (GFR) estimation 89 mL/min >60 [facility] Glucose measurementOrdered B y: Jae Ash on 09-12-2024 Glucose [Mass/Vol] 149 mg/dL High 74-106 [facility] Comment on above: Fasting Glucose resu lt greater than or equal to 126 mg/dL suggests DIABETES MELLITUS per A.D.A. criteria. Glucose measurement 149 mg/dL High 74-106 [facility] Hematocrit Auto (Bld) [Volum e fraction]Ordered By: Jae Ash on 09-12-2024 Hematocrit (Bld) [Volume fraction] 25.8 % Low 40-54 [facility] Automated blood hematocrit (percentage) 25.8 % Low 40-54 [facility] Hemoglobin measurementOrdere d By: Jae Ash on 09-12-2024 Hemoglobin (Bld) [Mass/Vol] 8.1 g/dL Low 13.0-16.5 [facility] Hemoglobin measurement 8.1 g/dL Low 13.0-16.5 [facility] MCV (RBC) [Entitic vol]Order ed By: Jae Ash on 09-12-2024 MCV (mean corpuscular volume) determination 90.5 fL 80-94 [facility] MCV (mean corpuscular volume ) determinationOrdered By: Jae Ash on 09-12-2024 MCV (RBC) [Entitic vol] 90.5 fL 80-94 [facility] Mean corpuscular hemoglobin (MCH) determinationOrdered By: Jae Ash on 09-12-2024 MCH (RBC) [Entitic mass] 28.4 pg 27.0-32.0 [facility] Mean corpuscular hemoglobin (MCH) determination 28.4 pg 27.0-32.0 [facility] Mean corpuscular hemoglobin concentration (MCHC) determinationOrdered By: Jae Ash on 09-12-2024 MCHC (RBC) [Mass/Vol] 31.4 g/dL Low 32-36 [facility] Comment on above: Delta: 33.1 on 09/10 Mean corpuscular hemoglobin concentration (MCHC) determination 31.4 g/dL Low 32-36 [facility] Mean platelet volume determi nationOrdered By: Jae Ash on 09-12-2024 Platelet mean volume (Bld) [Entitic vol] 11.9 fL 6.2-12.0 [facility] Mean platelet volume determination 11.9 fl 6.2-12.0 [facility] Platelet countOrdered By: Sky Ash on 09-12-2024 Platelets (Bld) [#/Vol] 115 10*3/uL Low 150-450 [facility] Platelet count 115 K/mm3 Low 150-450 [facility] Potassium measurementOrdered By: Jae Ash on 09-12-2024 Potassium [Moles/Vol] 3.4 mmol/L Low 3.5-5.1 [facility] Potassium measurement 3.4 mmol/L Low 3.5-5.1 [facility] RBC Auto (Bld) [#/Vol]Ordere d By: Jae Ash on 09-12-2024 RBC (Bld) [#/Vol] 2.85 10*6/uL Low 4.6-6.2 [facility] Automated blood erythrocyte count 2.85 M/mm3 Low 4.6-6.2 [facility] Serum anion gap measurementO rdered By: Jae Ash on 09-12-2024 Anion gap [Moles/Vol] 7 mmol/L 5-15 [facility] Serum anion gap measurement 7 5-15 [facility] Serum or plasma calcium roosevelt urement (mass/volume)Ordered By: Jae Ash on 09-12-2024 Calcium [Mass/Vol] 8.1 mg/dL Low 8.5-10.1 [facility] Serum or plasma creatinine m easurement (mass/volume)Ordered By: Jae Ash on 09-12-2024 Creatinine [Mass/Vol] 0.92 mg/dL 0.70-1.30 [facility] Comment on above: The validity of the calculated GFR & GFRAA in patients over 70 years has not been determined. Clinical correlation is essential. Serum or plasma urea nitroge n measurement (mass/volume)Ordered By: Jae Ash on 09-12-2024 Urea nitrogen [Mass/Vol] 7 mg/dL 02-18 [facility] Sodium levelOrdered By: Pasha Ash on 09-12-2024 Sodium [Moles/Vol] 136 mmol/L 136-145 [facility] Sodium level 136 mmol/L 136-145 [facility] Urea nitrogen [Mass/Vol]Orde red By: Jae Ash on 09-12-2024 Serum or plasma urea nitrogen measurement (mass/volume) 7 mg/dL 02-18 [facility] White blood cell (WBC) count Ordered By: Jae Ash on 09-12-2024 WBC (Bld) [#/Vol] 7.4 10*3/uL 4.4-11.0 [facility] White blood cell (WBC) count 7.4 K/mm3 4.4-11.0 [facility] Bedside Glucoseon 09-11-2024 FINGERSTICK GLU 181 mg/dL High 74-106 [facility] Comment on above: Result Comment: BRISA GEMENT OF PATIENT CARE PER NURSING PROTOCOL Performed By: #### L 501.080 ####[facility] [address] [facility] [id number] FINGERSTICK GLU 160 mg/dL High 74-106 [facility] Comment on above: Result Comment: BRISA GEMENT OF PATIENT CARE PER NURSING PROTOCOL Performed By: #### L 501.080 ####[facility] [address] [place], [address] FINGERSTICK GLU 221 mg/dL High 74-106 [facility] Comment on above: Result Comment: BRISA GEMENT OF PATIENT CARE PER NURSING PROTOCOL Performed By: #### L 501.080 ####[facility] [address] [place], [address] FINGERSTICK GLU 156 mg/dL High 74-106 [facility] Comment on above: Result Comment: BRISA MOROCHO OF PATIENT CARE PER NURSING PROTOCOL Performed By: #### L 501.080 ####[facility] [address] [place], [address] Culture, Blood (WB)on 2024 CUB mrse bacteremia No growth in 5 days. Normal [facility] Comment on above: Performed By: #### M 200.1000 ####[facility] [address] [place], [address] Basic Metabolic Profile (BMP )on 09-10-2024 BUN/CRE 8.1 RATIO Low 10-20 [facility] Comment on above: Performed By: #### L 500.2500, L100.0500 ####[facility] [address] [place], [address] CA,Total 8.4 mg/dL Low 8.5-10.1 [facility] Comment on above: Performed By: #### L 500.2500, L100.0500 ####[facility] [address] [place], [address] Chloride [Moles/Vol] 110 mmol/L High 98-107 [facility] Comment on above: Performed By: #### L 500.2500, L100.0500 ####[facility] [address] [place], [address] CO2 [Moles/Vol] 19.0 mmol/L Low 21.0-32.0 [facility] Comment on above: Performed By: #### L 500.2500, L100.0500 ####[facility] [address] [place], [address] Creatinine [Mass/Vol] 0.98 mg/dL Normal 0.70-1.30 [facility] Comment on above: Result Comment: The validity of the calculated GFR GFRAA in patients over70 years has not been determined. Clinical correlation isessential. Performed By: #### L 500.2500, L100.0500 ####[facility] [address] [place], [address] ECRCL 100.62 ml/min Normal [facility] Comment on above: Performed By: #### L 500.2500, L100.0500 ####[facility] [address] [place], [address] EST GFR - AA 101 mL/min Normal >60 [facility] Comment on above: Result Comment: Afri can Venezuelan GFR Calc Performed By: #### L 500.2500, L100.0500 ####[facility] [address] [place], [address] GAP 7 Normal 5-15 [facility] Comment on above: Performed By: #### L 500.2500, L100.0500 ####[facility] [address] [place], [address] GFR/1.73 sq M.predicted among non-blacks MDRD (S/P/Bld) [Vol rate/Area] 83 mL/min/{1.73_m2} Normal >60 [facility] Comment on above: Result Comment: Non- GFR Calc Performed By: #### L 500.2500, L100.0500 ####[facility] [address] [place], [address] Glucose [Mass/Vol] 138 mg/dL High 74-106 [facility] Comment on above: Result Comment: Fast ing Glucose result greater than or equal to 126 mg/dLsuggests DIABETES MELLITUS per A.D.A. criteria. Performed By: #### L 500.2500, L100.0500 ####[facility] [address] [place], [address] Potassium [Moles/Vol] 3.6 mmol/L Normal 3.5-5.1 [facility] Comment on above: Performed By: #### L 500.2500, L100.0500 ####[facility] [address] [place], [address] Sodium [Moles/Vol] 136 mmol/L Normal 136-145 [facility] Comment on above: Performed By: #### L 500.2500, L100.0500 ####[facility] [address] [place], [address] Urea nitrogen [Mass/Vol] 8 mg/dL Normal 7-18 [facility] Comment on above: Performed By: #### L 500.2500, L100.0500 ####[facility] [address] [place], [address] Bedside Glucoseon 09-10-2024 FINGERSTICK GLU 240 mg/dL High 74-106 [facility] Comment on above: Result Comment: BRISA GEMENT OF PATIENT CARE PER NURSING PROTOCOL Performed By: #### L 501.080 ####[facility] [address] [place], [address] FINGERSTICK GLU 233 mg/dL High 74-106 [facility] Comment on above: Result Comment: BRISA GEMENT OF PATIENT CARE PER NURSING PROTOCOL Performed By: #### L 501.080 ####[facility] [address] [place], [address] FINGERSTICK GLU 197 mg/dL High 74-106 [facility] Comment on above: Result Comment: BRISA GEMENT OF PATIENT CARE PER NURSING PROTOCOL Performed By: #### L 501.080 ####[facility] [address] [place], [address] FINGERSTICK GLU 134 mg/dL High 74-106 [facility] Comment on above: Result Comment: BRISA GEMENT OF PATIENT CARE PER NURSING PROTOCOL Performed By: #### L 501.080 ####[facility] [address], [address] CBC-Complete Blood Cnt No Di ffon 09-10-2024 Erythrocyte distribution width (RBC) [Ratio] 18.9 % High 11.6-14.6 [facility] Comment on above: Performed By: #### L 500.2500, L100.0500 ####[facility] [address] [place], [address] Hematocrit (Bld) [Volume fraction] 24.5 % Low 40-54 [facility] Comment on above: Performed By: #### L 500.2500, L100.0500 ####[facility] [address] [place], [address] Hemoglobin (Bld) [Mass/Vol] 8.1 g/dL Low 13.0-16.5 [facility] Comment on above: Performed By: #### L 500.2500, L100.0500 ####[facility] [address] [place], [address] MCH (RBC) [Entitic mass] 28.9 pg Normal 27.0-32.0 [facility] Comment on above: Performed By: #### L 500.2500, L100.0500 ####[facility] [address] [place], [address] MCHC (RBC) [Mass/Vol] 33.1 g/dL Normal 32-36 [facility] Comment on above: Performed By: #### L 500.2500, L100.0500 ####[facility] [address] [place], [address] MCV (RBC) [Entitic vol] 87.5 fL Normal 80-94 [facility] Comment on above: Performed By: #### L 500.2500, L100.0500 ####[facility] [address] [place], [address] Platelet mean volume (Bld) [Entitic vol] 11.7 fL Normal 6.2-12.0 [facility] Comment on above: Performed By: #### L 500.2500, L100.0500 ####[facility] [address] [place], [address] Platelets (Bld) [#/Vol] 124 10*3/uL Low 150-450 [facility] Comment on above: Performed By: #### L 500.2500, L100.0500 ####[facility] [address] [place], [address] RBC (Bld) [#/Vol] 2.80 10*6/uL Low 4.6-6.2 [facility] Comment on above: Performed By: #### L 500.2500, L100.0500 ####[facility] [address] [place], [address] RDW SD 54.9 fl High 35.1-43.9 [facility] Comment on above: Performed By: #### L 500.2500, L100.0500 ####[facility] [address] [place], [address] WBC (Bld) [#/Vol] 9.3 10*3/uL Normal 4.4-11.0 [facility] Comment on above: Performed By: #### L 500.2500, L100.0500 ####[facility] [address] [place], [address] Serum or plasma trough vanco mycin levelOrdered By: Thai Thurston on 09-10-2024 Vancomycin trough [Mass/Vol] 15.7 ug/mL High 5.0-15.0 [facility] Vancomycin trough [Mass/Vol] Ordered By: Thai Thurston on 09-10-2024 Vancomycin Level Trough 15.7 ug/mL High 5.0-15.0 [facility] Comment on above: VANCOMYCIN STANDARED DRUG THERAPY TROUGH LEVEL: 5.0 - 15.0 mg/L VANCOMYCIN HIGH INTENSITY THERAPY TROUGH LEVEL: 15.0 - 20.0 mg/L High Intensity therapy recommended for serious lifethreatening infections include:- Dnbgrmycxs-Hodgqkiwqlvb-Zonwtzdls (Ventilator/Healtcare Associated)-Sepsis PLEASE CONTACT PHARMACY SERVICES (#4212) FOR INTERPRETATIONOF RESULTS. Serum or plasma trough vancomycin level 15.7 ug/mL High 5.0-15.0 [facility] Vancomycin, Trough Levelon 0 09-10-2024 VANCO, TROUGH 15.7 ug/mL High 5.0-15.0 [facility] Comment on above: Order Comment: 1100 Result Comment: VANC OMYCIN STANDARED DRUG THERAPY TROUGH LEVEL: 5.0 - 15.0 mg/LVANCOMYCIN HIGH INTENSITY THERAPY TROUGH LEVEL: 15.0 - 20.0 mg/LHigh Intensity therapy recommended for serious lifethreatening infections include:- Ykpbprtycr-Nhlzpaikthye-Segabkzuu (Ventilator/Healtcare Associated)-SepsisPLEASE CONTACT PHARMACY SERVICES (#9807) FOR INTERPRETATIONOF RESULTS. Performed By: #### L 501.8820 ####[facility] [address] [place], [address] Basic Metabolic Profile (BMP )on 09-09-2024 BUN/CRE 9.0 RATIO Low 10-20 [facility] Comment on above: Performed By: #### L 500.2500, L100.0500 ####[facility] [address] [place], [address] CA,Total 8.6 mg/dL Normal 8.5-10.1 [facility] Comment on above: Performed By: #### L 500.2500, L100.0500 ####[facility] [address] [place], [address] Chloride [Moles/Vol] 109 mmol/L High 98-107 [facility] Comment on above: Performed By: #### L 500.2500, L100.0500 ####[facility] [address] [place], [address] CO2 [Moles/Vol] 18.0 mmol/L Low 21.0-32.0 [facility] Comment on above: Performed By: #### L 500.2500, L100.0500 ####[facility] [address] [place], [address] Creatinine [Mass/Vol] 1.11 mg/dL Normal 0.70-1.30 [facility] Comment on above: Result Comment: The validity of the calculated GFR GFRAA in patients over70 years has not been determined. Clinical correlation isessential. Performed By: #### L 500.2500, L100.0500 ####[facility] [address] [place], [address] ECRCL 88.83 ml/min Normal [facility] Comment on above: Performed By: #### L 500.2500, L100.0500 ####[facility] [address] [place], [address] EST GFR - AA 88 mL/min Normal >60 [facility] Comment on above: Result Comment: Afri can [place]an GFR Calc Performed By: #### L 500.2500, L100.0500 ####[facility] [address] [place], [address] GAP 8 Normal 5-15 [facility] Comment on above: Performed By: #### L 500.2500, L100.0500 ####[facility] [address] [place], [address] GFR/1.73 sq M.predicted among non-blacks MDRD (S/P/Bld) [Vol rate/Area] 72 mL/min/{1.73_m2} Normal >60 [facility] Comment on above: Result Comment: Non- GFR Calc Performed By: #### L 500.2500, L100.0500 ####[facility] [address] [place], [address] Glucose [Mass/Vol] 220 mg/dL High 74-106 [facility] Comment on above: Result Comment: Gluc ose result greater than or equal to 200 mg/dLsuggests DIABETES MELLITUS per A.D.A. criteria. Performed By: #### L 500.2500, L100.0500 ####[facility] [address] [place], [address] Potassium [Moles/Vol] 3.3 mmol/L Low 3.5-5.1 [facility] Comment on above: Performed By: #### L 500.2500, L100.0500 ####[facility] [address] [place], [address] Sodium [Moles/Vol] 135 mmol/L Low 136-145 [facility] Comment on above: Performed By: #### L 500.2500, L100.0500 ####[facility] [address] [place], [address] Urea nitrogen [Mass/Vol] 10 mg/dL Normal 7-18 [facility] Comment on above: Performed By: #### L 500.2500, L100.0500 ####[facility] [address], [address] Bedside Glucoseon 09-09-2024 FINGERSTICK GLU 164 mg/dL High -106 [facility] Comment on above: Result Comment: BRISA GEMENT OF PATIENT CARE PER NURSING PROTOCOL Performed By: #### L 501.080 ####[facility] [address], [address] FINGERSTICK GLU 198 mg/dL High [address] [place] [address] Comment on above: Result Comment: BRISA GEMENT OF PATIENT CARE PER NURSING PROTOCOL Performed By: #### L 501.080 ####[facility] [address] [place], [address] FINGERSTICK GLU 193 mg/dL High 74-106 [facility] Comment on above: Result Comment: BRISA GEMENT OF PATIENT CARE PER NURSING PROTOCOL Performed By: #### L 501.080 ####[facility] [address] [place], [address] FINGERSTICK GLU 247 mg/dL High 74-106 [facility] Comment on above: Result Comment: BRISA GEMENT OF PATIENT CARE PER NURSING PROTOCOL Performed By: #### L 501.080 ####[facility] [address] [place], [address] CBC-Complete Blood Cnt No Di ffon 09-09-2024 Erythrocyte distribution width (RBC) [Ratio] 18.5 % High 11.6-14.6 [facility] Comment on above: Performed By: #### L 500.2500, L100.0500 ####[facility] [address] [place], [address] Hematocrit (Bld) [Volume fraction] 24.3 % Low 40-54 [facility] Comment on above: Performed By: #### L 500.2500, L100.0500 ####[facility] [address] [place], [address] Hemoglobin (Bld) [Mass/Vol] 8.2 g/dL Low 13.0-16.5 [facility] Comment on above: Performed By: #### L 500.2500, L100.0500 ####[facility] [address] [place], [address] MCH (RBC) [Entitic mass] 29.7 pg Normal 27.0-32.0 [facility] Comment on above: Performed By: #### L 500.2500, L100.0500 ####[facility] [address] [place], [address] MCHC (RBC) [Mass/Vol] 33.7 g/dL Normal 32-36 [facility] Comment on above: Performed By: #### L 500.2500, L100.0500 ####[facility] [address] [place], [address] MCV (RBC) [Entitic vol] 88.0 fL Normal 80-94 [facility] Comment on above: Performed By: #### L 500.2500, L100.0500 ####[facility] [address] [place], [address] Platelet mean volume (Bld) [Entitic vol] 11.7 fL Normal 6.2-12.0 [facility] Comment on above: Performed By: #### L 500.2500, L100.0500 ####[facility] [address] [place], [address] Platelets (Bld) [#/Vol] 119 10*3/uL Low 150-450 [facility] Comment on above: Performed By: #### L 500.2500, L100.0500 ####[facility] [address] [place], [address] RBC (Bld) [#/Vol] 2.76 10*6/uL Low 4.6-6.2 [facility] Comment on above: Performed By: #### L 500.2500, L100.0500 ####[facility] [address] [place], [address] RDW SD 52.2 fl High 35.1-43.9 [facility] Comment on above: Performed By: #### L 500.2500, L100.0500 ####[facility] [address] [place], [address] WBC (Bld) [#/Vol] 9.9 10*3/uL Normal 4.4-11.0 [facility] Comment on above: Performed By: #### L 500.2500, L100.0500 ####[facility] [address] [place], [address] Abdomen/Pelvis without Conto n 09-08-2024 Abdomen/Pelvis without Cont Normal [facility] Bedside Glucoseon 09-08-2024 FINGERSTICK GLU 250 mg/dL High [address] [place] [address] Comment on above: Result Comment: BRISA GEMENT OF PATIENT CARE PER NURSING PROTOCOL Performed By: #### L 501.080 ####[facility] [address] [place], [address] FINGERSTICK GLU 247 mg/dL High [address] [place] [address] Comment on above: Result Comment: BRISA GEMENT OF PATIENT CARE PER NURSING PROTOCOL Performed By: #### L 501.080 ####[facility] [address] [place], [address] FINGERSTICK GLU 244 mg/dL High [address] [place] [address] Comment on above: Result Comment: BRISA GEMENT OF PATIENT CARE PER NURSING PROTOCOL Performed By: #### L 501.080 ####[facility] [address] [place], [address] FINGERSTICK GLU 244 mg/dL High [address] [place] [address] Comment on above: Result Comment: BRISA GEMENT OF PATIENT CARE PER NURSING PROTOCOL Performed By: #### L 501.080 ####[facility] [address] [place], [address] FINGERSTICK GLU 264 mg/dL High [address] [place] [address] Comment on above: Result Comment: BRISA GEMENT OF PATIENT CARE PER NURSING PROTOCOL Performed By: #### L 501.080 ####[facility] [address] [place], [address] Serum or plasma vancomycin l evel (mass/volume)Ordered By: Maria Guadalupe Shore on 09-08-2024 Vancomycin [Mass/Vol] 16.5 ug/mL High 0.0-15.0 [facility] Vancomycin [Mass/Vol]Ordered By: Maria Guadalupe Shore on 09-08-2024 Random Vancomycin Level 16.5 ug/mL High 0.0-15.0 [facility] Comment on above: VANCOMYCIN STANDARD DRUG THERAPY: CRITICAL VALUE IS > 15.0 mg/L VANCOMYCIN HIGH INTENSITY THERAPY: CRITICAL VALUE IS > 20.0 mg/L PLEASE CONTACT PHARMACY SERVICES (#1678) FOR INTERPRETATIONOF RESULTS. THIS RESULT DOES NOT REPRESENT A PEAK OR TROUGHLEVEL FOR THIS DRUG. Serum or plasma vancomycin level (mass/volume) 16.5 ug/mL High 0.0-15.0 [facility] Vancomycin, Random Levelon 0 09-08-2024 VANCO, RANDOM 16.5 ug/mL High 0.0-15.0 [facility] Comment on above: Result Comment: VANC OMYCIN STANDARD DRUG THERAPY: CRITICAL VALUE IS > 15.0 mg/LVANCOMYCIN HIGH INTENSITY THERAPY: CRITICAL VALUE IS > 20.0 mg/LPLEASE CONTACT PHARMACY SERVICES (#4418) FOR INTERPRETATIONOF RESULTS. THIS RESULT DOES NOT REPRESENT A PEAK OR TROUGHLEVEL FOR THIS DRUG. Performed By: #### L 501.8850 ####[facility] [address] [place], [address] Absolute lymphocyte countOrd ered By: Anurag Irene on 09-07-2024 Lymphocytes Auto (Unsp spec) [#/Vol] 0.95 10*3/uL 0.83-4.51 [facility] Absolute neutrophil countOrd ered By: Anurag Irene on 09-07-2024 Neutrophils (Bld) [#/Vol] 13.3 10*3/uL High 2.0-7.7 [facility] Absolute neutrophil count 13.3 X10^3/uL High 2.0-7.7 [facility] Automated lymphocyte count a s percentage of total leukocytesOrdered By: Anurag Irene on 09-07-2024 Lymphocytes/100 WBC Auto (Unsp spec) 5.8 % Low 19-41 [facility] Basic Metabolic Profile (BMP )on 09-07-2024 BUN/CRE 13.6 RATIO Normal 10-20 [facility] Comment on above: Performed By: #### L 100.0100, L500.2500 ####[facility] [address] [place], [address] CA,Total 8.2 mg/dL Low 8.5-10.1 [facility] Comment on above: Performed By: #### L 100.0100, L500.2500 ####[facility] [address] [place], [address] Chloride [Moles/Vol] 108 mmol/L High 98-107 [facility] Comment on above: Performed By: #### L 100.0100, L500.2500 ####[facility] [address] [place], [address] CO2 [Moles/Vol] 17.0 mmol/L Low 21.0-32.0 [facility] Comment on above: Performed By: #### L 100.0100, L500.2500 ####[facility] [address] [place], [address] Creatinine [Mass/Vol] 1.47 mg/dL High 0.70-1.30 [facility] Comment on above: Result Comment: The validity of the calculated GFR GFRAA in patients over70 years has not been determined. Clinical correlation isessential. Performed By: #### L 100.0100, L500.2500 ####[facility] [address] [place], [address] ECRCL 67.54 ml/min Normal [facility] Comment on above: Performed By: #### L 100.0100, L500.2500 ####[facility] [address] [place], [address] EST GFR - AA 63 mL/min Normal >60 [facility] Comment on above: Result Comment: Afri can Venezuelan GFR Calc Performed By: #### L 100.0100, L500.2500 ####[facility] [address] [place], [address] GAP 10 Normal 5-15 [facility] Comment on above: Performed By: #### L 100.0100, L500.2500 ####[facility] [address] [place], [address] GFR/1.73 sq M.predicted among non-blacks MDRD (S/P/Bld) [Vol rate/Area] 52 mL/min/{1.73_m2} Low >60 [facility] Comment on above: Result Comment: Non- GFR Calc Performed By: #### L 100.0100, L500.2500 ####[facility] [address] [place], [address] Glucose [Mass/Vol] 231 mg/dL High 74-106 [facility] Comment on above: Result Comment: Gluc ose result greater than or equal to 200 mg/dLsuggests DIABETES MELLITUS per A.D.A. criteria. Performed By: #### L 100.0100, L500.2500 ####[facility] [address] [place], [address] Potassium [Moles/Vol] 3.8 mmol/L Normal 3.5-5.1 [facility] Comment on above: Performed By: #### L 100.0100, L500.2500 ####[facility] [address] [place], [address] Sodium [Moles/Vol] 134 mmol/L Low 136-145 [facility] Comment on above: Performed By: #### L 100.0100, L500.2500 ####[facility] [address] [place], [address] Urea nitrogen [Mass/Vol] 20 mg/dL High 7-18 [facility] Comment on above: Performed By: #### L 100.0100, L500.2500 ####[facility] [address] [place], [address] Basophil percentageOrdered B y: Anuragleisa Irene on 09-07-2024 Basophils/100 WBC (Bld) 0.4 % 0-1 [facility] Basophil percentage 0.4 % 0-1 [facility] Bedside Glucoseon 09-07-2024 FINGERSTICK GLU 215 mg/dL High 74-106 [facility] Comment on above: Result Comment: BRISA GEMENT OF PATIENT CARE PER NURSING PROTOCOL Performed By: #### L 501.080 ####[facility] [address] [place], [address] FINGERSTICK GLU 201 mg/dL High 74-106 [facility] Comment on above: Result Comment: BRISA GEMENT OF PATIENT CARE PER NURSING PROTOCOL Performed By: #### L 501.080 ####[facility] [address] [place], [address] FINGERSTICK GLU 197 mg/dL High 74-106 [facility] Comment on above: Result Comment: BRISA GEMENT OF PATIENT CARE PER NURSING PROTOCOL Performed By: #### L 501.080 ####[facility] [address] [place], [address] FINGERSTICK GLU 268 mg/dL High 74-106 [facility] Comment on above: Result Comment: BRISA GEMENT OF PATIENT CARE PER NURSING PROTOCOL Performed By: #### L 501.080 ####[facility] [address] [place], [address] CBC W/Diff, Automatedon 02-0 4-2024 Absolute Lymph 0.95 X10 3/uL Normal 0.83-4.51 [facility] Comment on above: Performed By: #### L 100.0100, L500.2500 ####[facility] [address] [place], [address] Absolute Neut 13.3 X10 3/uL High 2.0-7.7 [facility] Comment on above: Performed By: #### L 100.0100, L500.2500 ####[facility] [address] [place], [address] Basophils/100 WBC (Bld) 0.4 % Normal 0-1 [facility] Comment on above: Performed By: #### L 100.0100, L500.2500 ####[facility] [address] [place], [address] Eosinophils/100 WBC (Bld) 3.0 % Normal 0-5 [facility] Comment on above: Performed By: #### L 100.0100, L500.2500 ####[facility] [address] [place], [address] Erythrocyte distribution width (RBC) [Ratio] 17.7 % High 11.6-14.6 [facility] Comment on above: Performed By: #### L 100.0100, L500.2500 ####[facility] [address] [place], [address] Hematocrit (Bld) [Volume fraction] 27.1 % Low 40-54 [facility] Comment on above: Performed By: #### L 100.0100, L500.2500 ####[facility] [address] [place], [address] Hemoglobin (Bld) [Mass/Vol] 9.0 g/dL Low 13.0-16.5 [facility] Comment on above: Performed By: #### L 100.0100, L500.2500 ####[facility] [address] [place], [address] IG% 1.400 High 0.0-0.9 [facility] Comment on above: Result Comment: IG% - Immature Granulocytes (promyelocytes, myelocytes andmetamyelocytes) > 1% indicates that a LEFT SHIFT is Present. Performed By: #### L 100.0100, L500.2500 ####[facility] [address] [place], [address] Lymphocytes/100 WBC (Bld) 5.8 % Low 19-41 [facility] Comment on above: Performed By: #### L 100.0100, L500.2500 ####[facility] [address] [place], [address] MCH (RBC) [Entitic mass] 29.0 pg Normal 27.0-32.0 [facility] Comment on above: Performed By: #### L 100.0100, L500.2500 ####[facility] [address] [place], [address] MCHC (RBC) [Mass/Vol] 33.2 g/dL Normal 32-36 [facility] Comment on above: Performed By: #### L 100.0100, L500.2500 ####[facility] [address] [place], [address] MCV (RBC) [Entitic vol] 87.4 fL Normal 80-94 [facility] Comment on above: Performed By: #### L 100.0100, L500.2500 ####[facility] [address] [place], [address] Monocytes/100 WBC (Bld) 8.6 % Normal 0-10 [facility] Comment on above: Performed By: #### L 100.0100, L500.2500 ####[facility] [address] [place], [address] Neutrophils/100 WBC (Bld) 80.8 % High 47-70 [facility] Comment on above: Performed By: #### L 100.0100, L500.2500 ####[facility] [address] [place], [address] Nucleated RBC (Bld) [#/Vol] 0 10*3/uL Normal 0-5 [facility] Comment on above: Performed By: #### L 100.0100, L500.2500 ####[facility] [address] [place], [address] Platelet mean volume (Bld) [Entitic vol] 11.8 fL Normal 6.2-12.0 [facility] Comment on above: Performed By: #### L 100.0100, L500.2500 ####[facility] [address] [place], [address] Platelets (Bld) [#/Vol] 121 10*3/uL Low 150-450 [facility] Comment on above: Performed By: #### L 100.0100, L500.2500 ####[facility] [address] [place], [address] RBC (Bld) [#/Vol] 3.10 10*6/uL Low 4.6-6.2 [facility] Comment on above: Performed By: #### L 100.0100, L500.2500 ####[facility] [address] [place], [address] RDW SD 50.3 fl High 35.1-43.9 [facility] Comment on above: Performed By: #### L 100.0100, L500.2500 ####[facility] [address] [place], [address] WBC (Bld) [#/Vol] 16.4 10*3/uL High 4.4-11.0 [facility] Comment on above: Performed By: #### L 100.0100, L500.2500 ####[facility] [address] [place], [address] Culture, Blood (WB)on 2024 CUB Normal [facility] Comment on above: Performed By: #### M 200.1000 ####[facility] [address] [place], [address] Eosinophil percentageOrdered By: Anurag Irene on 09-07-2024 Eosinophils/100 WBC (Bld) 3.0 % 0-5 [facility] Eosinophil percentage 3.0 % 0-5 [facility] Immature granulocytes/100 WB C Auto (Bld)Ordered By: Anurag Irene on 09-07-2024 Immature granulocytes/100 WBC (Bld) 1.400 % High 0.0-0.9 [facility] Comment on above: IG% - Immature Granu locytes (promyelocytes, myelocytes and metamyelocytes) > 1% indicates that a LEFT SHIFT is Present. Automated immature granulocyte percentage 1.400 % High 0.0-0.9 [facility] Lymphocytes Auto (Unsp spec) [#/Vol]Ordered By: Anurag Irene on 09-07-2024 Lymphocytes (Bld) [#/Vol] 0.95 10*3/uL 0.83-4.51 [facility] Absolute lymphocyte count 0.95 X10^3/uL 0.83-4.51 [facility] Lymphocytes/100 WBC Auto (Un sp spec)Ordered By: Anurag Irene on 09-07-2024 Lymphocytes/100 WBC (Bld) 5.8 % Low 19-41 [facility] Automated lymphocyte count as percentage of total leukocytes 5.8 % Low 19-41 [facility] Monocyte percentageOrdered B y: Anurag Irene on 09-07-2024 Monocytes/100 WBC (Bld) 8.6 % 0-10 [facility] Monocyte percentage 8.6 % 0-10 [facility] Neutrophil percentageOrdered By: Anurag Irene on 09-07-2024 Neutrophils/100 WBC (Bld) 80.8 % High 47-70 [facility] Neutrophil percentage 80.8 % High 47-70 [facility] Nucleated red blood cell per centageOrdered By: Anurag Irene on 09-07-2024 Nucleated RBC/100 WBC (Bld) [Ratio] 0 % 0-5 [facility] Nucleated red blood cell percentage 0 % 0-5 [facility] Urine Cultureon 09-07-2024 URC Normal [facility] Comment on above: Performed By: #### M 100.2209 ####[facility] [address] [place], [address] Vancomycin, Trough Levelon 0 09-07-2024 VANCO, TROUGH 24.9 ug/mL High 5.0-15.0 [facility] Comment on above: Order Comment: 2199 Result Comment: VANC OMYCIN STANDARED DRUG THERAPY TROUGH LEVEL: 5.0 - 15.0 mg/LVANCOMYCIN HIGH INTENSITY THERAPY TROUGH LEVEL: 15.0 - 20.0 mg/LHigh Intensity therapy recommended for serious lifethreatening infections include:- Taemfztssn-Rrqdtcnamcva-Lqvuesinr (Ventilator/Healtcare Associated)-SepsisPLEASE CONTACT PHARMACY SERVICES (#6425) FOR INTERPRETATIONOF RESULTS. Performed By: #### L 501.8820 ####[facility] [address] [place], [address] BC GPC IDon 09-06-2024 BC GPC ID Normal [facility] Comment on above: Performed By: #### M 100.636, M200.1000 ####[facility] [address] [place], [address] Basic Metabolic Profile (BMP )on 09-06-2024 BUN/CRE 12.8 RATIO Normal 10-20 [facility] Comment on above: Performed By: #### L 500.2500, L100.0100 ####[facility] [address] [place], [address] CA,Total 8.5 mg/dL Normal 8.5-10.1 [facility] Comment on above: Performed By: #### L 500.2500, L100.0100 ####[facility] [address] [place], [address] Chloride [Moles/Vol] 107 mmol/L Normal 98-107 [facility] Comment on above: Performed By: #### L 500.2500, L100.0100 ####[facility] [address] [place], [address] CO2 [Moles/Vol] 14.0 mmol/L Low 21.0-32.0 [facility] Comment on above: Performed By: #### L 500.2500, L100.0100 ####[facility] [address] [place], [address] Creatinine [Mass/Vol] 1.72 mg/dL High 0.70-1.30 [facility] Comment on above: Result Comment: The validity of the calculated GFR GFRAA in patients over70 years has not been determined. Clinical correlation isessential. Performed By: #### L 500.2500, L100.0100 ####[facility] [address] [place], [address] ECRCL 57.25 ml/min Normal [facility] Comment on above: Performed By: #### L 500.2500, L100.0100 ####[facility] [address] [place], [address] EST GFR - AA 53 mL/min Low >60 [facility] Comment on above: Result Comment: Afri can Venezuelan GFR Calc Performed By: #### L 500.2500, L100.0100 ####[facility] [address] [place], [address] GAP 10 Normal 5-15 [facility] Comment on above: Performed By: #### L 500.2500, L100.0100 ####[facility] [address] [place], [address] GFR/1.73 sq M.predicted among non-blacks MDRD (S/P/Bld) [Vol rate/Area] 44 mL/min/{1.73_m2} Low >60 [facility] Comment on above: Result Comment: Non- GFR Calc Performed By: #### L 500.2500, L100.0100 ####[facility] [address] [place], [address] Glucose [Mass/Vol] 187 mg/dL High 74-106 [facility] Comment on above: Result Comment: Fast ing Glucose result greater than or equal to 126 mg/dLsuggests DIABETES MELLITUS per A.D.A. criteria. Performed By: #### L 500.2500, L100.0100 ####[facility] [address] [place], [address] Potassium [Moles/Vol] 4.3 mmol/L Normal 3.5-5.1 [facility] Comment on above: Performed By: #### L 500.2500, L100.0100 ####[facility] [address] [place], [address] Sodium [Moles/Vol] 131 mmol/L Low 136-145 [facility] Comment on above: Performed By: #### L 500.2500, L100.0100 ####[facility] [address], [address] Urea nitrogen [Mass/Vol] 22 mg/dL High 7-18 [facility] Comment on above: Performed By: #### L 500.2500, L100.0100 ####[facility] [address] [place], [address] Bedside Glucoseon 09-06-2024 FINGERSTICK GLU 220 mg/dL High 74-106 [facility] Comment on above: Result Comment: BRISA GEMENT OF PATIENT CARE PER NURSING PROTOCOL Performed By: #### L 501.080 ####[facility] [address] [place], [address] FINGERSTICK GLU 195 mg/dL High 74-106 [facility] Comment on above: Result Comment: BRISA GEMENT OF PATIENT CARE PER NURSING PROTOCOL Performed By: #### L 501.080 ####[facility] [address] [place], [address] FINGERSTICK GLU 173 mg/dL High 74-106 [facility] Comment on above: Result Comment: BRISA GEMENT OF PATIENT CARE PER NURSING PROTOCOL Performed By: #### L 501.080 ####[facility] [address] [place], [address] FINGERSTICK GLU 201 mg/dL High 74-106 [facility] Comment on above: Result Comment: BRISA GEMENT OF PATIENT CARE PER NURSING PROTOCOL Performed By: #### L 501.080 ####[facility] [address] [place], [address] Blood cultureOrdered By: [place] Irene on 09-06-2024 Bacteria identified Cx Nom (Bld) No growth in 5 days. [facility] Blood culture No growth in 5 days. [facility] CBC W/Diff, Automatedon Absolute Lymph 1.13 X10 3/uL Normal 0.83-4.51 [facility] Comment on above: Order Comment: REDRA W. PREVIOUS SPECIMEN REJECTED DUE TOSPECIMEN BEING CLOTTED. 09/06/2446 Henry Jon Performed By: #### L 100.0100 ####[facility] [address] [place], [address] Absolute Neut 15.6 X10 3/uL High 2.0-7.7 [facility] Comment on above: Order Comment: REDRA W. PREVIOUS SPECIMEN REJECTED DUE TOSPECIMEN BEING CLOTTED. 09/06/2446 Henry Jon Performed By: #### L 100.0100 ####[facility] [address] [place], [address] Basophils/100 WBC (Bld) 0.3 % Normal 0-1 [facility] Comment on above: Order Comment: REDRA W. PREVIOUS SPECIMEN REJECTED DUE TOSPECIMEN BEING CLOTTED. 09/06/2446 Henry Jon Performed By: #### L 100.0100 ####[facility] [address] [place], [address] Eosinophils/100 WBC (Bld) 2.2 % Normal 0-5 [facility] Comment on above: Order Comment: REDRA W. PREVIOUS SPECIMEN REJECTED DUE TOSPECIMEN BEING CLOTTED. 09/06/2446 Henry Jon Performed By: #### L 100.0100 ####[facility] [address] [place], [address] Erythrocyte distribution width (RBC) [Ratio] 17.2 % High 11.6-14.6 [facility] Comment on above: Order Comment: REDRA W. PREVIOUS SPECIMEN REJECTED DUE TOSPECIMEN BEING CLOTTED. 09/06/24845 Henry Jon Performed By: #### L 100.0100 ####[facility] [address] [place], [address] Hematocrit (Bld) [Volume fraction] 26.9 % Low 40-54 [facility] Comment on above: Order Comment: REDRA W. PREVIOUS SPECIMEN REJECTED DUE TOSPECIMEN BEING CLOTTED. 09/06/24845 Henry Jon Performed By: #### L 100.0100 ####[facility] [address] [place], [address] Hemoglobin (Bld) [Mass/Vol] 9.0 g/dL Low 13.0-16.5 [facility] Comment on above: Order Comment: REDRA W. PREVIOUS SPECIMEN REJECTED DUE TOSPECIMEN BEING CLOTTED. 09/06/24845 Henry Jon Performed By: #### L 100.0100 ####[facility] [address] [place], [address] IG% 1.200 High 0.0-0.9 [facility] Comment on above: Order Comment: REDRA W. PREVIOUS SPECIMEN REJECTED DUE TOSPECIMEN BEING CLOTTED. 09/06/24845 Henry Jon Result Comment: IG% - Immature Granulocytes (promyelocytes, myelocytes andmetamyelocytes) > 1% indicates that a LEFT SHIFT is Present. Performed By: #### L 100.0100 ####[facility] [address] [place], [address] Lymphocytes/100 WBC (Bld) 6.0 % Low 19-41 [facility] Comment on above: Order Comment: REDRA W. PREVIOUS SPECIMEN REJECTED DUE TOSPECIMEN BEING CLOTTED. 09/06/24845 Henry Jon Performed By: #### L 100.0100 ####[facility] [address] [place], [address] MCH (RBC) [Entitic mass] 29.4 pg Normal 27.0-32.0 [facility] Comment on above: Order Comment: REDRA W. PREVIOUS SPECIMEN REJECTED DUE TOSPECIMEN BEING CLOTTED. 09/06/2446 Henry Jon Performed By: #### L 100.0100 ####[facility] [address] [place], [address] MCHC (RBC) [Mass/Vol] 33.5 g/dL Normal 32-36 [facility] Comment on above: Order Comment: REDRA W. PREVIOUS SPECIMEN REJECTED DUE TOSPECIMEN BEING CLOTTED. 09/06/2446 Henry Jon Performed By: #### L 100.0100 ####[facility] [address] [place], [address] MCV (RBC) [Entitic vol] 87.9 fL Normal 80-94 [facility] Comment on above: Order Comment: REDRA W. PREVIOUS SPECIMEN REJECTED DUE TOSPECIMEN BEING CLOTTED. 09/06/2446 Henry Jon Performed By: #### L 100.0100 ####[facility] [address] [place], [address] Monocytes/100 WBC (Bld) 7.4 % Normal 0-10 [facility] Comment on above: Order Comment: REDRA W. PREVIOUS SPECIMEN REJECTED DUE TOSPECIMEN BEING CLOTTED. 09/06/2446 Henry Jon Performed By: #### L 100.0100 ####[facility] [address] [place], [address] Neutrophils/100 WBC (Bld) 82.9 % High 47-70 [facility] Comment on above: Order Comment: REDRA W. PREVIOUS SPECIMEN REJECTED DUE TOSPECIMEN BEING CLOTTED. 09/06/2446 Henry Jon Performed By: #### L 100.0100 ####[facility] [address] [place], [address] Nucleated RBC (Bld) [#/Vol] 0 10*3/uL Normal 0-5 [facility] Comment on above: Order Comment: REDRA W. PREVIOUS SPECIMEN REJECTED DUE TOSPECIMEN BEING CLOTTED. 09/06/2446 Henry Calloway. Performed By: #### L 100.0100 ####[facility] [address] [place], [address] Platelet mean volume (Bld) [Entitic vol] 11.3 fL Normal 6.2-12.0 [facility] Comment on above: Order Comment: REDRA W. PREVIOUS SPECIMEN REJECTED DUE TOSPECIMEN BEING CLOTTED. 09/06/2446 Henry Calloway. Performed By: #### L 100.0100 ####[facility] [address] [place], [address] Platelets (Bld) [#/Vol] 114 10*3/uL Low 150-450 [facility] Comment on above: Order Comment: REDRA W. PREVIOUS SPECIMEN REJECTED DUE TOSPECIMEN BEING CLOTTED. 09/06/2446 Henry Jon Performed By: #### L 100.0100 ####[facility] [address] [place], [address] RBC (Bld) [#/Vol] 3.06 10*6/uL Low 4.6-6.2 [facility] Comment on above: Order Comment: REDRA W. PREVIOUS SPECIMEN REJECTED DUE TOSPECIMEN BEING CLOTTED. 09/06/2446 Henry Jon Performed By: #### L 100.0100 ####[facility] [address] [place], [address] RDW SD 50.1 fl High 35.1-43.9 [facility] Comment on above: Order Comment: REDRA W. PREVIOUS SPECIMEN REJECTED DUE TOSPECIMEN BEING CLOTTED. 09/06/2446 Henry Carranza Stoner. Performed By: #### L 100.0100 ####[facility] [address] [place], [address] WBC (Bld) [#/Vol] 18.8 10*3/uL High 4.4-11.0 [facility] Comment on above: Order Comment: REDRA W. PREVIOUS SPECIMEN REJECTED DUE TOSPECIMEN BEING CLOTTED. 09/06/2446 Henry R Stoner. Performed By: #### L 100.0100 ####[facility] [address] [place], [address] Absolute Neut Normal 2.0-7.7 [facility] Comment on above: Result Comment: This specimen has been REJECTED due to Laboratory criteria:Clotted.PHLEB STAFF has been notified of need of recollection.09/06/2445 Henry R Stoner Performed By: #### L 500.2500, L100.0100 ####[facility] [address] [place], [address] HCT Normal 40-54 [facility] Comment on above: Result Comment: This specimen has been REJECTED due to Laboratory criteria:Clotted.PHLEB STAFF has been notified of need of recollection.09/06/2445 Henry R Stoner Performed By: #### L 500.2500, L100.0100 ####[facility] [address] [place], [address] HGB Normal 13.0-16.5 [facility] Comment on above: Result Comment: This specimen has been REJECTED due to Laboratory criteria:Clotted.PHLEB STAFF has been notified of need of recollection.09/06/2445 Henry R Stoner Performed By: #### L 500.2500, L100.0100 ####[facility] [address] [place], [address] MCH Normal 27.0-32.0 [facility] Comment on above: Result Comment: This specimen has been REJECTED due to Laboratory criteria:Clotted.PHLEB STAFF has been notified of need of recollection.09/06/2445 Henry R Stoner Performed By: #### L 500.2500, L100.0100 ####[facility] [address] [place], [address] MCHC Normal 32-36 [facility] Comment on above: Result Comment: This specimen has been REJECTED due to Laboratory criteria:Clotted.PHLEB STAFF has been notified of need of recollection.09/06/2445 Henry R Stoner Performed By: #### L 500.2500, L100.0100 ####[facility] [address] [place], [address] MCV Normal 80-94 [facility] Comment on above: Result Comment: This specimen has been REJECTED due to Laboratory criteria:Clotted.PHLEB STAFF has been notified of need of recollection.09/06/2445 Henry R Stoner Performed By: #### L 500.2500, L100.0100 ####[facility] [address] [place], [address] NEUT% Normal 47-70 [facility] Comment on above: Result Comment: This specimen has been REJECTED due to Laboratory criteria:Clotted.PHLEB STAFF has been notified of need of recollection.09/06/2445 Henry R Stoner Performed By: #### L 500.2500, L100.0100 ####[facility] [address] [place], [address] PLT Normal 150-450 [facility] Comment on above: Result Comment: This specimen has been REJECTED due to Laboratory criteria:Clotted.PHLEB STAFF has been notified of need of recollection.09/06/2445 Henry R Stoner Performed By: #### L 500.2500, L100.0100 ####[facility] [address] [place], [address] RBC Normal 4.6-6.2 [facility] Comment on above: Result Comment: This specimen has been REJECTED due to Laboratory criteria:Clotted.PHLEB STAFF has been notified of need of recollection.09/06/2445 Henry R Stoner Performed By: #### L 500.2500, L100.0100 ####[facility] [address] [place], [address] RDW CV Normal 11.6-14.6 [facility] Comment on above: Result Comment: This specimen has been REJECTED due to Laboratory criteria:Clotted.PHLEB STAFF has been notified of need of recollection.09/06/2445 Henry R Stoner Performed By: #### L 500.2500, L100.0100 ####[facility] [address] [place], [address] RDW SD Normal 35.1-43.9 [facility] Comment on above: Result Comment: This specimen has been REJECTED due to Laboratory criteria:Clotted.PHLEB STAFF has been notified of need of recollection.09/06/2445 Henry R Stoner Performed By: #### L 500.2500, L100.0100 ####[facility] [address] [place], [address] WBC Normal 4.4-11.0 [facility] Comment on above: Result Comment: This specimen has been REJECTED due to Laboratory criteria:Clotted.PHLEB STAFF has been notified of need of recollection.09/06/2445 Henry R Stoner Performed By: #### L 500.2500, L100.0100 ####[facility] [address] [place], [address] Absolute Neut Normal 2.0-7.7 [facility] Comment on above: Result Comment: Canc elled via OM: Order cancelled - Patient discharged Performed By: #### L 100.0100 ####[facility] [address] [place], [address] HCT Normal 40-54 [facility] Comment on above: Result Comment: Canc elled via OM: Order cancelled - Patient discharged Performed By: #### L 100.0100 ####[facility] [address] [place], [address] HGB Normal 13.0-16.5 [facility] Comment on above: Result Comment: Canc elled via OM: Order cancelled - Patient discharged Performed By: #### L 100.0100 ####[facility] [address] [place], [address] MCH Normal 27.0-32.0 [facility] Comment on above: Result Comment: Canc elled via OM: Order cancelled - Patient discharged Performed By: #### L 100.0100 ####[facility] [address] [place], [address] MCHC Normal 32-36 [facility] Comment on above: Result Comment: Canc elled via OM: Order cancelled - Patient discharged Performed By: #### L 100.0100 ####[facility] [address] [place], [address] MCV Normal 80-94 [facility] Comment on above: Result Comment: Canc elled via OM: Order cancelled - Patient discharged Performed By: #### L 100.0100 ####[facility] [address] [place], [address] NEUT% Normal 47-70 [facility] Comment on above: Result Comment: Canc elled via OM: Order cancelled - Patient discharged Performed By: #### L 100.0100 ####[facility] [address] [place], [address] PLT Normal 150-450 [facility] Comment on above: Result Comment: Canc elled via OM: Order cancelled - Patient discharged Performed By: #### L 100.0100 ####[facility] [address] [place], [address] RBC Normal 4.6-6.2 [facility] Comment on above: Result Comment: Canc elled via OM: Order cancelled - Patient discharged Performed By: #### L 100.0100 ####[facility] [address] [place], [address] RDW CV Normal 11.6-14.6 [facility] Comment on above: Result Comment: Canc elled via OM: Order cancelled - Patient discharged Performed By: #### L 100.0100 ####[facility] [address] [place], [address] RDW SD Normal 35.1-43.9 [facility] Comment on above: Result Comment: Canc elled via OM: Order cancelled - Patient discharged Performed By: #### L 100.0100 ####[facility] [address] [place], [address] WBC Normal 4.4-11.0 [facility] Comment on above: Result Comment: Canc elled via OM: Order cancelled - Patient discharged Performed By: #### L 100.0100 ####[facility] [address] [place], [address] Consultation - Infectious Dx on 09-06-2024 Consultation - Infectious Dx Normal [facility] Consultation - Nephrologyon 09-06-2024 Consultation - Nephrology Normal [facility] Culture, Blood (WB)on 2024 CUB Blood cultures x2, f rom two different sites GRAM POSITIVE COCCI RESULTS CALLED TO BAKARI PRADHAN 09/05/241945 Noreen Mendoza. REPORT READ BACK BY SAME. REFER TO [id number] FOR ID AND SENSITIVITY Normal [facility] Comment on above: Performed By: #### M 100.636, M200.1000 ####[facility] [address] [place], [address] Hemoglobin A1con 09-06-2024 HbA1c (Bld) [Mass fraction] 7.3 % High 3.8-5.6 [facility] Comment on above: Result Comment: Norm al < 5.7 % Prediabetic 5.7 - 6.4 % Diabetic >or= 6.5 % Please note range changes. Performed By: #### L 501.9985, L501.5920 ####[facility] [address] [place], [address] Vitamin B12on 09-06-2024 Cobalamin (Vitamin B12) [Mass/Vol] pg/mL High 211-911 [facility] Comment on above: Performed By: #### L 503.0105, L501.9100, L506.0250 ####[facility] [address] [place], [address] Alcohol, Blood (Medical)-Ser umon 09-05-2024 SERUM ETOH 4.0 mg/dL Normal [facility] Comment on above: Result Comment: The serum:whole blood ethanol ratio is approximately 1.14and varies slightly with hematocrit.Medical Alcohol reference interval and critical value innon-tolerant individuals; 50 - 100 Impairment 100 Intoxication 100 - 250 Severe Poisoning 250 - 400 Deep/possible fatal coma Performed By: #### L 503.0105, L501.9100, L506.0250 ####[facility] [address] [place], [address] Bedside Glucoseon 09-05-2024 FINGERSTICK GLU 169 mg/dL High 74-106 [facility] Comment on above: Result Comment: BRISA GEMENT OF PATIENT CARE PER NURSING PROTOCOL Performed By: #### L 501.080 ####[facility] [address] [place], [address] FINGERSTICK GLU 166 mg/dL High 74-106 [facility] Comment on above: Result Comment: BRISA GEMENT OF PATIENT CARE PER NURSING PROTOCOL Performed By: #### L 501.080 ####[facility] [address] [place], [address] FINGERSTICK GLU 226 mg/dL High 74-106 [facility] Comment on above: Result Comment: BRISA MOROCHO OF PATIENT CARE PER NURSING PROTOCOL Performed By: #### L 501.080 ####[facility] [address] [place], [place], [address] Blood cultureOrdered By: Shi Joiner on 09-05-2024 Bacteria identified Cx Nom (Bld) Staphylococcus epidermidis Abnormal [facility] Blood culture Staphylococcus epidermidis Abnormal [facility] Consultation - Intensiviston 09-05-2024 Consultation - Customer Account Representative Normal [facility] Consultation - Urologyon Consultation - Urology Normal [facility] Folates, (Folic Acid)on FOLATES 30.10 ng/mL Normal 3.1-55.4 [facility] Comment on above: Order Comment: Has P atient had X-rays with Contrast this admission? NN Performed By: #### L 503.0105, L501.9100, L506.0250 ####[facility] [address] [place], [place], [address] Folic acid measurementOrdere d By: Hill Wright on 09-05-2024 Folate 30.10 ng/mL 3.1-55.4 [facility] Folic acid measurement 30.10 ng/mL 3.1-55.4 [facility] H AND P Exam - Hospitaliston 09-05-2024 H&P Exam - Hospitalist Normal [facility] Lactic Acidon 09-05-2024 Lactate [Moles/Vol] 2.3 mmol/L Invalid Interpretation Code 0.4-1.9 [facility] Comment on above: Order Comment: Y Result Comment: Crit ical Result(s) Called at: 08:26:40 09/05/2024 by:Bakari jenkins [facility]. Results read back by same. Performed By: #### L 503.6005 ####[facility] [address] [place], [place], [address] Lactate [Moles/Vol] 3.2 mmol/L Invalid Interpretation Code 0.4-1.9 [facility] Comment on above: Order Comment: Y Result Comment: Crit ical Result(s) Called at: 06:13:06 09/05/2024 by:Bakari Haque to [employer]. Results read back by same. Performed By: #### L 503.6005 ####[facility] [address] [place], [place], [address] Lactic acid measurementOrder ed By: Hill Wright on 09-05-2024 Lactate [Moles/Vol] 2.3 mmol/L High 0.4-2.0 [facility] Comment on above: Critical Result(s) C alled at: 08:26:40 09/05/2024 by: Bakari Garcia. Results read back by same. Lactic acid measurement 2.3 mmol/L High 0.4-2.0 [facility] Operative Reporton Operative Report Normal [facility] PSA,Total - Annual Screenon 09-05-2024 PSA,TOT SCREEN 1.41 ng/mL Normal 0.00-4.00 [facility] Comment on above: Result Comment: This test was performed using the TPSA assay method for the[employer]akar[employer] chemistry system. Values obtained with differentassay methods cannot be used interchangably.When changing PSA assays in the course of monitoring apatient, additional sequential testing should be carriedout to confirm baseline values. Performed By: #### L 501.9910 ####[facility] [address] [place], [place], [address] Serum ethanol measurementOrd ered By: Hill Wright on 09-05-2024 Ethyl Alcohol Level 4.0 mg/dL [facility] Comment on above: The serum:whole bloo d ethanol ratio is approximately 1.14and varies slightly with hematocrit. Medical Alcohol reference interval and critical value innon-tolerant individuals; 50 - 100 Impairment 100 Intoxication 100 - 250 Severe Poisoning 250 - 400 Deep/possible fatal coma Serum ethanol measurement 4.0 mg/dL [facility] Thyroid Stim Hormone (TSH)on 09-05-2024 TSH 0.826 uIU/mL Normal 0.358-3.740 [facility] Comment on above: Performed By: #### L 501.9985, L501.9520 ####[facility] [address] [place], [address] Vitamin B12 measurementOrder ed By: Hill Wright on 09-05-2024 Vitamin B12 Level > 2000 pg/mL High 211-911 [facility] Vitamin B12 measurement > 2000 pg/mL High 211-911 [facility] ALP [Catalytic activity/Vol] Ordered By: Rachel Joiner on 09-04-2024 Serum or plasma alkaline phosphatase measurement 269 U/L High 45-117 [facility] ALT [Catalytic activity/Vol] Ordered By: Rachel Joiner on 09-04-2024 Serum or plasma alanine aminotransferase (ALT) measurement 79 U/L High 16-61 [facility] Abdomen/Pelvis without Conto n 09-04-2024 Abdomen/Pelvis without Cont Normal [facility] Albumin [Mass/Vol]Ordered By : Rachel Joiner on 09-04-2024 Serum or plasma albumin measurement (mass/volume) 2.0 g/dL Low 3.2-5.0 [facility] Ammoniaon 09-04-2024 Ammonia (P) [Moles/Vol] 26.0 umol/L Normal 11-32 [facility] Comment on above: Performed By: #### L 100.0100, L500.2500, L503.5510, L500.3400 ####[facility] [address] [place], [address] Basic Metabolic Profile (BMP )on 09-04-2024 BUN/CRE 12.1 RATIO Normal 10-20 [facility] Comment on above: Performed By: #### L 100.0100, L500.2500, L503.5510, L500.3400 ####[facility] [address] [place], [address] CA,Total 8.5 mg/dL Normal 8.5-10.1 [facility] Comment on above: Performed By: #### L 100.0100, L500.2500, L503.5510, L500.3400 ####[facility] [address] [place], [address] Chloride [Moles/Vol] 104 mmol/L Normal 98-107 [facility] Comment on above: Performed By: #### L 100.0100, L500.2500, L503.5510, L500.3400 ####[facility] [address] [place], [address] CO2 [Moles/Vol] 18.0 mmol/L Low 21.0-32.0 [facility] Comment on above: Performed By: #### L 100.0100, L500.2500, L503.5510, L500.3400 ####[facility] [address] [place], [address] Creatinine [Mass/Vol] 1.82 mg/dL High 0.70-1.30 [facility] Comment on above: Result Comment: The validity of the calculated GFR GFRAA in patients over70 years has not been determined. Clinical correlation isessential. Performed By: #### L 100.0100, L500.2500, L503.5510, L500.3400 ####[facility] [address] [place], [address] ECRCL 53.57 ml/min Normal [facility] Comment on above: Performed By: #### L 100.0100, L500.2500, L503.5510, L500.3400 ####[facility] [address] [place], [address] EST GFR - AA 49 mL/min Low >60 [facility] Comment on above: Result Comment: Afri can [place] GFR Calc Performed By: #### L 100.0100, L500.2500, L503.5510, L500.3400 ####[facility] [address] [place], [address] GAP 10 Normal 5-15 [facility] Comment on above: Performed By: #### L 100.0100, L500.2500, L503.5510, L500.3400 ####[facility] [address] [place], [address] GFR/1.73 sq M.predicted among non-blacks MDRD (S/P/Bld) [Vol rate/Area] 41 mL/min/{1.73_m2} Low >60 [facility] Comment on above: Result Comment: Non- GFR Calc Performed By: #### L 100.0100, L500.2500, L503.5510, L500.3400 ####[facility] [address] [place], [address] Glucose [Mass/Vol] 252 mg/dL High 74-106 [facility] Comment on above: Result Comment: Gluc ose result greater than or equal to 200 mg/dLsuggests DIABETES MELLITUS per A.D.A. criteria. Performed By: #### L 100.0100, L500.2500, L503.5510, L500.3400 ####[facility] [address] [place], [address] Potassium [Moles/Vol] 4.0 mmol/L Normal 3.5-5.1 [facility] Comment on above: Performed By: #### L 100.0100, L500.2500, L503.5510, L500.3400 ####[facility] [address] [place], [address] Sodium [Moles/Vol] 132 mmol/L Low 136-145 [facility] Comment on above: Performed By: #### L 100.0100, L500.2500, L503.5510, L500.3400 ####[facility] [address] [place], [address] Urea nitrogen [Mass/Vol] 22 mg/dL High 7-18 [facility] Comment on above: Performed By: #### L 100.0100, L500.2500, L503.5510, L500.3400 ####[facility] [address], [address] BUN Normal 7-18 [facility] Comment on above: Result Comment: Canc elled via OM: Order cancelled - Patient discharged Performed By: #### L 500.2500 ####[facility] [address] [place], [address] BUN/CRE Normal 10-20 [facility] Comment on above: Result Comment: Canc elled via OM: Order cancelled - Patient discharged Performed By: #### L 500.2500 ####[facility] [address] [place], [address] CA,Total Normal 8.5-10.1 [facility] Comment on above: Result Comment: Canc elled via OM: Order cancelled - Patient discharged Performed By: #### L 500.2500 ####[facility] [address] [place], [address] CL Normal 98-107 [facility] Comment on above: Result Comment: Canc elled via OM: Order cancelled - Patient discharged Performed By: #### L 500.2500 ####[facility] [address] [place], [address] CO2 Normal 21.0-32.0 [facility] Comment on above: Result Comment: Canc elled via OM: Order cancelled - Patient discharged Performed By: #### L 500.2500 ####[facility] [address] [place], [address] CREAT,SERUM Normal 0.70-1.30 [facility] Comment on above: Result Comment: Canc elled via OM: Order cancelled - Patient discharged Performed By: #### L 500.2500 ####[facility] [address] [place], [address] EST GFR Normal >60 [facility] Comment on above: Result Comment: Canc elled via OM: Order cancelled - Patient discharged Performed By: #### L 500.2500 ####[facility] [address] [place], [address] EST GFR - AA Normal >60 [facility] Comment on above: Result Comment: Canc elled via OM: Order cancelled - Patient discharged Performed By: #### L 500.2500 ####[facility] [address] [place], [address] GAP Normal 5-15 [facility] Comment on above: Result Comment: Canc elled via OM: Order cancelled - Patient discharged Performed By: #### L 500.2500 ####[facility] [address] [place], [address] GLU Normal 74-106 [facility] Comment on above: Result Comment: Canc elled via OM: Order cancelled - Patient discharged Performed By: #### L 500.2500 ####[facility] [address] [place], [address] Potassium Normal 3.5-5.1 [facility] Comment on above: Result Comment: Canc elled via OM: Order cancelled - Patient discharged Performed By: #### L 500.2500 ####[facility] [address] [place], [address] Basic Metabolic Profile (BMP) Normal 136-145 [facility] Comment on above: Result Comment: Canc elled via OM: Order cancelled - Patient discharged Performed By: #### L 500.2500 ####[facility] [address] [place], [address] Bedside Glucoseon 09-04-2024 FINGERSTICK GLU 247 mg/dL High 74-106 [facility] Comment on above: Result Comment: BRISA MOROCHO OF PATIENT CARE PER NURSING PROTOCOL Performed By: #### L 501.080 ####[facility] [address] [place], [address] Bilirubin Test strip Ql (U)O rdered By: Rachel Joiner on 09-04-2024 Bilirubin Ql (U) 1 mg/dL High Negative [facility] Comment on above: COLOR OF URINE MAY A FFECT DIPSTICK RESULTS. Bilirubin directOrdered By: Rachel Joiner on 09-04-2024 Bilirubin.direct [Mass/Vol] 1.80 mg/dL High 0.00-0.30 [facility] Bilirubin, totalOrdered By: Rachel Joiner on 09-04-2024 Bilirubin [Mass/Vol] 3.10 mg/dL High 0.20-1.00 [facility] Comment on above: For patients on eltr ombopag therapy, use of Dimension [place] TBIL is not recommended. Bilirubin, total 3.10 mg/dL High 0.20-1.00 [facility] Bilirubin.direct [Mass/Vol]O rdered By: Rachel Joiner on 09-04-2024 Bilirubin direct 1.80 mg/dL High 0.00-0.30 [facility] Blood cultureOrdered By: Shi Joiner on 09-04-2024 Bacteria identified Cx Nom (Bld) [facility] CBC W/Diff, Automatedon Absolute Lymph 0.98 X10 3/uL Normal 0.83-4.51 [facility] Comment on above: Performed By: #### L 100.0100, L500.2500, L503.5510, L500.3400 ####[facility] [address] [place], [address] Absolute Neut 16.1 X10 3/uL High 2.0-7.7 [facility] Comment on above: Performed By: #### L 100.0100, L500.2500, L503.5510, L500.3400 ####[facility] [address] [place], [address] Basophils/100 WBC (Bld) 0.3 % Normal 0-1 [facility] Comment on above: Performed By: #### L 100.0100, L500.2500, L503.5510, L500.3400 ####[facility] [address] [place], [address] Eosinophils/100 WBC (Bld) 0.9 % Normal 0-5 [facility] Comment on above: Performed By: #### L 100.0100, L500.2500, L503.5510, L500.3400 ####[facility] [address] [place], [address] Erythrocyte distribution width (RBC) [Ratio] 15.9 % High 11.6-14.6 [facility] Comment on above: Performed By: #### L 100.0100, L500.2500, L503.5510, L500.3400 ####[facility] [address] [place], [address] Hematocrit (Bld) [Volume fraction] 28.5 % Low 40-54 [facility] Comment on above: Performed By: #### L 100.0100, L500.2500, L503.5510, L500.3400 ####[facility] [address] [place], [address] Hemoglobin (Bld) [Mass/Vol] 9.4 g/dL Low 13.0-16.5 [facility] Comment on above: Performed By: #### L 100.0100, L500.2500, L503.5510, L500.3400 ####[facility] [address] [place], [address] IG% 1.500 High 0.0-0.9 [facility] Comment on above: Result Comment: IG% - Immature Granulocytes (promyelocytes, myelocytes andmetamyelocytes) > 1% indicates that a LEFT SHIFT is Present. Performed By: #### L 100.0100, L500.2500, L503.5510, L500.3400 ####[facility] [address] [place], [address] Lymphocytes/100 WBC (Bld) 5.1 % Low 19-41 [facility] Comment on above: Performed By: #### L 100.0100, L500.2500, L503.5510, L500.3400 ####[facility] [address] [place], [address] MCH (RBC) [Entitic mass] 28.6 pg Normal 27.0-32.0 [facility] Comment on above: Performed By: #### L 100.0100, L500.2500, L503.5510, L500.3400 ####[facility] [address] [place], [address] MCHC (RBC) [Mass/Vol] 33.0 g/dL Normal 32-36 [facility] Comment on above: Performed By: #### L 100.0100, L500.2500, L503.5510, L500.3400 ####[facility] [address] [place], [address] MCV (RBC) [Entitic vol] 86.6 fL Normal 80-94 [facility] Comment on above: Performed By: #### L 100.0100, L500.2500, L503.5510, L500.3400 ####[facility] [address] [place], [address] Monocytes/100 WBC (Bld) 7.9 % Normal 0-10 [facility] Comment on above: Performed By: #### L 100.0100, L500.2500, L503.5510, L500.3400 ####[facility] [address] [place], [address] Neutrophils/100 WBC (Bld) 84.3 % High 47-70 [facility] Comment on above: Performed By: #### L 100.0100, L500.2500, L503.5510, L500.3400 ####[facility] [address] [place], [address] Nucleated RBC (Bld) [#/Vol] 0 10*3/uL Normal 0-5 [facility] [facility] Comment on above: Performed By: #### L 100.0100, L500.2500, L503.5510, L500.3400 ####[facility] [address] [place], [address] Platelet mean volume (Bld) [Entitic vol] 12.0 fL Normal 6.2-12.0 [facility] Comment on above: Performed By: #### L 100.0100, L500.2500, L503.5510, L500.3400 ####[facility] [address] [place], [address] Platelets (Bld) [#/Vol] 103 10*3/uL Low 150-450 [facility] Comment on above: Performed By: #### L 100.0100, L500.2500, L503.5510, L500.3400 ####[facility] [address] [place], [address] RBC (Bld) [#/Vol] 3.29 10*6/uL Low 4.6-6.2 [facility] Comment on above: Performed By: #### L 100.0100, L500.2500, L503.5510, L500.3400 ####[facility] [address] [place], [address] RDW SD 48.6 fl High 35.1-43.9 [facility] Comment on above: Performed By: #### L 100.0100, L500.2500, L503.5510, L500.3400 ####[facility] [address] [place], [address] WBC (Bld) [#/Vol] 19.1 10*3/uL High 4.4-11.0 [facility] Comment on above: Performed By: #### L 100.0100, L500.2500, L503.5510, L500.3400 ####[facility] [address] [place], [address] Absolute Neut Normal 2.0-7.7 [facility] Comment on above: Result Comment: Canc elled via OM: Order cancelled - Patient discharged Performed By: #### L 100.0100 ####[facility] [address] [place], [address] HCT Normal 40-54 [facility] Comment on above: Result Comment: Canc elled via OM: Order cancelled - Patient discharged Performed By: #### L 100.0100 ####[facility] [address] [place], [address] HGB Normal 13.0-16.5 [facility] Comment on above: Result Comment: Canc elled via OM: Order cancelled - Patient discharged Performed By: #### L 100.0100 ####[facility] [address] [place], [address] MCH Normal 27.0-32.0 [facility] Comment on above: Result Comment: Canc elled via OM: Order cancelled - Patient discharged Performed By: #### L 100.0100 ####[facility] [address] [place], [address] MCHC Normal 32-36 [facility] Comment on above: Result Comment: Canc elled via OM: Order cancelled - Patient discharged Performed By: #### L 100.0100 ####[facility] [address] [place], [address] MCV Normal 80-94 [facility] Comment on above: Result Comment: Canc elled via OM: Order cancelled - Patient discharged Performed By: #### L 100.0100 ####[facility] [address] [place], [address] NEUT% Normal 47-70 [facility] Comment on above: Result Comment: Canc elled via OM: Order cancelled - Patient discharged Performed By: #### L 100.0100 ####[facility] [address] [place], [address] PLT Normal 150-450 [facility] Comment on above: Result Comment: Canc elled via OM: Order cancelled - Patient discharged Performed By: #### L 100.0100 ####[facility] [address] [place], [address] RBC Normal 4.6-6.2 [facility] Comment on above: Result Comment: Canc elled via OM: Order cancelled - Patient discharged Performed By: #### L 100.0100 ####[facility] [address] [place], [address] RDW CV Normal 11.6-14.6 [facility] Comment on above: Result Comment: Canc elled via OM: Order cancelled - Patient discharged Performed By: #### L 100.0100 ####[facility] [address] [place], [address] RDW SD Normal 35.1-43.9 [facility] Comment on above: Result Comment: Canc elled via OM: Order cancelled - Patient discharged Performed By: #### L 100.0100 ####[facility] [address] [place], [address] WBC Normal 4.4-11.0 [facility] Comment on above: Result Comment: Canc elled via OM: Order cancelled - Patient discharged Performed By: #### L 100.0100 ####[facility] [address] [place], [address] Clarity (U)Ordered By: Kaz Joiner on 09-04-2024 Urine clarity Clear Clear [facility] Color (U)Ordered By: Rachel Joiner on 09-04-2024 Urine color determination Yellow Yellow [facility] Emergency Department Summary on 09-04-2024 Emergency Department Summary Normal [facility] Epithelial cells.squamous LM Ql (Urine sed)Ordered By: Rachel Joiner on 09-04-2024 Epithelial cells.squamous LM.HPF (Urine sed) [#/Area] 0 /[HPF] 0-5 [facility] Glucose Ql (U)Ordered By: Brendan Joiner on 09-04-2024 Urine Glucose (UA) Normal mg/dl Normal [facility] Urine glucose detection Normal mg/dl Normal [facility] HbA1c (Bld) [Mass fraction]O rdered By: Hill Wright on 09-04-2024 Hemoglobin A1c percentage 7.3 % High 3.8-5.6 [facility] Hemoglobin A1c percentageOrd ered By: Hill Wright on 09-04-2024 HbA1c (Bld) [Mass fraction] 7.3 % High 3.8-5.6 [facility] Comment on above: Normal < 5.7 % Predi abetic 5.7 - 6.4 % Diabetic >or= 6.5 % Please note range changes. Ketones Test strip Ql (U)Ord ered By: Rachel Joiner on 09-04-2024 Ketones Ql (U) Negative Negative [facility] Laboratory - Chemistry and C hemistry - challengeOrdered By: Rachel Joiner on 09-04-2024 AST [Catalytic activity/Vol] 156 U/L High 15-37 [facility] Leukocyte esterase Test stri p Ql (U)Ordered By: Rachel Joiner on 09-04-2024 Urine leukocyte esterase detection by dipstick 100 /ul High Negative [facility] Liver Profileon 09-04-2024 Albumin [Mass/Vol] 2.0 g/dL Low 3.2-5.0 [facility] Comment on above: Performed By: #### L 100.0100, L500.2500, L503.5510, L500.3400 ####[facility] [address] [place], [address] ALK P 269 U/L High 45-117 [facility] Comment on above: Performed By: #### L 100.0100, L500.2500, L503.5510, L500.3400 ####[facility] [address] [place], [address] ALT [Catalytic activity/Vol] 79 U/L High 16-61 [facility] Comment on above: Performed By: #### L 100.0100, L500.2500, L503.5510, L500.3400 ####[facility] [address] [place], [address] AST [Catalytic activity/Vol] 156 U/L High 15-37 [facility] Comment on above: Performed By: #### L 100.0100, L500.2500, L503.5510, L500.3400 ####[facility] [address] [place], [address] Bilirubin [Mass/Vol] 3.10 mg/dL High 0.20-1.00 [facility] Comment on above: Result Comment: For patients on eltrombopag therapy, use of Dimension [place] TBIL is not recommended. Performed By: #### L 100.0100, L500.2500, L503.5510, L500.3400 ####[facility] [address] [place], [address] Bilirubin.direct [Mass/Vol] 1.80 mg/dL High 0.00-0.30 [facility] Comment on above: Performed By: #### L 100.0100, L500.2500, L503.5510, L500.3400 ####[facility] [address] [place], [address] Globulin (S) [Mass/Vol] 4.1 g/dL Normal 2.2-4.2 [facility] Comment on above: Performed By: #### L 100.0100, L500.2500, L503.5510, L500.3400 ####[facility] [address] [place], [address] T PROT 6.1 g/dL Low 6.4-8.2 [facility] Comment on above: Performed By: #### L 100.0100, L500.2500, L503.5510, L500.3400 ####[facility] [address] [place], [address] Methadone, urineOrdered By: Rachel Joiner on 09-04-2024 Urine Methadone Screen Negative < 300 ng/mL [facility] Microorganism identified Cx Nom (Unsp spec)Ordered By: Rachel Joiner on 09-04-2024 Bacteria Detection (PCR) Staphylococcus epidermidis Abnormal [facility] Bacteria Detection (PCR) mecA Resistance Marker Abnormal [facility] Organism identification mecA Resistance Marker Abnormal [facility] Microscopic analysis of urin e for red blood cells (RBC)Ordered By: Rachel Joiner on 09-04-2024 Urine RBC 10-25 SEEN /hpf 0-5 [facility] Microscopic analysis of urine for red blood cells (RBC) 10-25 SEEN /hpf 0-5 [facility] Mucus LM Ql (Urine sed)Order ed By: Rachel Joiner on 09-04-2024 Mucus Ql (Urine sed) 0 SEEN /hpf [facility] Nitrite Test strip Ql (U)Ord ered By: Rachel Joiner on 09-04-2024 Nitrite Ql (U) Negative Negative [facility] No Panel InformationOrdered By: Rachel Joiner on 09-04-2024 156 U/L High 15-37 [facility] Urine Drug Screen Comment [facility] Comment on above: CONFIRMATORY TESTING FOR ALL [...] MUST BE ORDERED SEPARATELY. USE TESTMNEMONIC: UTCA [facility] Organism identificationOrder ed By: Rachel Joiner on 09-04-2024 Microorganism identified Cx Nom (Unsp spec) Staphylococcus epidermidis Abnormal [facility] Microorganism identified Cx Nom (Unsp spec) mecA Resistance Marker Abnormal [facility] Protein Test strip Ql (U)Ord ered By: Rachel Joiner on 09-04-2024 Protein Ql (U) 30 mg/dl High Negative [facility] Urine protein assay by test strip, semi-quantitative 30 mg/dl High Negative [facility] Quantitative urine opiates m easurementOrdered By: Rachel Joiner on 09-04-2024 Opiates Ql (U) Positive High < 300 ng/mL [facility] Quantitative urine opiates measurement Positive High < 300 ng/mL [facility] Screening prostate specific antigen (PSA) measurementOrdered By: Hill Wright on 09-04-2024 Prostate Specific Antigen Screen 1.41 ng/mL 0.00-4.00 [facility] Comment on above: This test was perfor med using the TPSA assay method for [employer] chemistry system. Values obtained with differentassay methods cannot be used interchangably.When changing PSA assays in the course of monitoring apatient, additional sequential testing should be carriedout to confirm baseline values. Screening prostate specific antigen (PSA) measurement 1.41 ng/mL 0.00-4.00 [facility] Serum globulin measurementOr dered By: Rachel Joiner on 09-04-2024 Globulin (S) [Mass/Vol] 4.1 g/dL 2.2-4.2 [facility] Serum globulin measurement 4.1 g/dL 2.2-4.2 [facility] Serum or plasma alanine thomas otransferase (ALT) measurementOrdered By: Rachel Joiner on 09-04-2024 ALT [Catalytic activity/Vol] 79 U/L High 16-61 [facility] Serum or plasma albumin roosevelt urement (mass/volume)Ordered By: Rachel Joiner on 09-04-2024 Albumin [Mass/Vol] 2.0 g/dL Low 3.2-5.0 [facility] Serum or plasma alkaline kendrick sphatase measurementOrdered By: Rachel Joiner on 09-04-2024 ALP [Catalytic activity/Vol] 269 U/L High 45-117 [facility] Serum or plasma thyroid stim ulating hormone (TSH) measurement (units/volume)Ordered By: Hill Wright on 09-04-2024 TSH Qn 0.826 uIU/mL 0.358-3.740 [facility] Specific gravity (U) [Rel de nsity]Ordered By: Rachel Joiner on 09-04-2024 Urine specific gravity measurement 1.020 1.002-1.030 [facility] Squamous epithelial cells de tection in urine sediment by light microscopyOrdered By: Rachel Joiner on 09-04-2024 Epithelial cells.squamous LM Ql (Urine sed) 0 SEEN /hpf 0-5 [facility] Squamous epithelial cells detection in urine sediment by light microscopy 0 SEEN /hpf [facility] TSH QnOrdered By: Hill patino on 09-04-2024 Thyroid Stimulating Hormone (TSH) 0.826 uIU/mL 0.358-3.740 [facility] Serum or plasma thyroid stimulating hormone (TSH) measurement (units/volume) 0.826 uIU/mL 0.358-3.740 [facility] Total proteinOrdered By: Shi Joiner on 09-04-2024 Protein [Mass/Vol] 6.1 g/dL Low 6.4-8.2 [facility] Total protein 6.1 g/dL Low 6.4-8.2 [facility] Urinalysis, Completeon 09-04 WBC 5-10 SEEN Normal 0-5 [facility] Comment on above: Order Comment: BLADD ER TAP Result Comment: AMENDED REPORT 09/04/24 2642 WBC previously reported as: 0 SEEN /hpf Performed By: #### L 505.5000, L400.0001 ####[facility] [address] [place], [address] Urine Drug Screen (VISTA)on 09-04-2024 AMPHETAMINES Negative Normal <1000 ng/mL [facility] Comment on above: Performed By: #### L 505.5000, L400.0001 ####[facility] [address] [place], [address] BARBITIURATES Negative Normal < 200 ng/mL [facility] Comment on above: Performed By: #### L 505.5000, L400.0001 ####[facility] [address] [place] [id number] BENZODIAZIPINE Negative Normal < 200 ng/mL [facility] Comment on above: Performed By: #### L 505.5000, L400.0001 ####[facility] [address] [place] [id number] COCAINE Negative Normal < 300 ng/mL [facility] Comment on above: Performed By: #### L 505.5000, L400.0001 ####[facility] [address] [place] [id number] ECSTACY Negative Normal < 500 ng/mL [facility] Comment on above: Performed By: #### L 505.5000, L400.0001 ####[facility] [address] [place] [address] METHADONE Negative Normal < 300 ng/mL [facility] Comment on above: Performed By: #### L 505.5000, L400.0001 ####[facility] [address] [place] [address] OPIATES Positive Abnormal < 300 ng/mL [facility] Comment on above: Performed By: #### L 505.5000, L400.0001 ####[facility] [address] [place] [address] PCP Negative Normal < 25 ng/mL [facility] Comment on above: Performed By: #### L 505.5000, L400.0001 ####[facility] [address] [place] [id number] THC Negative Normal < 50 ng/mL [facility] Comment on above: Performed By: #### L 505.5000, L400.0001 ####[facility] [address] [place], [place], [address] VISTA UDS PH 5 Normal [facility] Comment on above: Performed By: #### L 505.5000, L400.0001 ####[facility] [address] [place], [address] Urine amphetamine measuremen tOrdered By: Rachel Joiner on 09-04-2024 Amphetamines Ql (U) Negative <1000 ng/mL [facility] Urine barbiturates measureme ntOrdered By: Rachel Joiner on 09-04-2024 Urine Barbiturates Screen Negative < 200 ng/mL [facility] Urine benzodiazepine levelOr dered By: Rachel Joiner on 09-04-2024 Benzodiazepines Ql (U) Negative < 200 ng/mL [facility] Urine blood detectionOrdered By: Rachel Joiner on 09-04-2024 Urine Occult Blood 150 /ul High Negative [facility] Urine blood detection 150 /ul High Negative [facility] Urine clarityOrdered By: Shi Joiner on 09-04-2024 Clarity (U) Clear Clear [facility] Urine cocaine levelOrdered B y: Rachel Joiner on 09-04-2024 Cocaine Ql (U) Negative < 300 ng/mL [facility] Urine color determinationOrd ered By: Rachel Joiner on 09-04-2024 Color (U) Yellow Yellow [facility] Urine cultureOrdered By: Hugo Wright on 09-04-2024 Bacteria identified Cx Nom (U) Staphylococcus epidermidis Abnormal [facility] Urine culture Staphylococcus epidermidis Abnormal [facility] Urine tvwtm-9-dosswdyajfqjyw abinol (THC) measurementOrdered By: Rachel Joiner on 09-04-2024 Cannabinoids Screen Ql (U) Negative < 50 ng/mL [facility] Urine glucose detectionOrder ed By: Rachel Joiner on 09-04-2024 Glucose Ql (U) Normal mg/dl Normal [facility] Urine ketones detection by t est stripOrdered By: Rachel Joiner on 09-04-2024 Urine ketones detection by test strip Negative < 50 ng/mL [facility] Urine leukocyte esterase det ection by dipstickOrdered By: Rachel Joiner on 09-04-2024 Leukocyte esterase Test strip Ql (U) 100 /ul High Negative [facility] Urine methylenedioxymethamph etamine (MDMA) measurementOrdered By: Rachel Joiner on 09-04-2024 MDMA (Ecstasy) Screen Negative < 500 ng/mL [facility] Urine pHOrdered By: Rachel silva on 09-04-2024 pH (U) 6.0 [pH] 5.0 - 8.0 [facility] Urine phencyclidine (PCP) de tectionOrdered By: Rachel Joiner on 09-04-2024 Phencyclidine Ql (U) Negative < 25 ng/mL [facility] Urine sediment bacteria coun t by microscopy (number/high power field)Ordered By: Rachel Joiner on 09-04-2024 Bacteria LM.HPF (Urine sed) [#/Area] 0 /[HPF] None Seen [facility] Urine specific gravity measu rementOrdered By: Rachel Joiner on 09-04-2024 Specific gravity (U) [Rel density] 1.020 1.002-1.030 [facility] Urine total bilirubin detect ion by test stripOrdered By: Rachel Joiner on 09-04-2024 Urine total bilirubin detection by test strip 1 mg/dL High Normal [facility] Urine urobilinogen measureme ntOrdered By: Rachel Joiner on 09-04-2024 Urobilinogen Ql (U) 1 mg/dl High Normal [facility] Urobilinogen Ql (U)Ordered B y: Rachel Joiner on 09-04-2024 Urobilinogen (U) [Mass/Vol] 1 mg/dL High Normal [facility] Venous blood ammonia measure mentOrdered By: Rachel Joiner on 09-04-2024 Ammonia (P) [Moles/Vol] 26.0 umol/L [facility] Venous blood ammonia measurement 26.0 umol/L [facility] White blood cell countOrdere d By: Rachel Joiner on 09-04-2024 Urine WBC 5-10 SEEN /hpf 0-5 [facility] Comment on above: Previous reported re sult: 0 SEEN /hpfEdited by: DANIEL on 09/04/24:2337 AMENDED REPORT 09/04/242336 WBC previously reported as: 0 SEEN /hpf White blood cell count 5-10 SEEN /hpf 0-5 [facility] White blood cell count 5-10 SEEN /hpf 0-5 [facility] pH (U)Ordered By: Rachel lambert on 09-04-2024 Urine pH 6.0 5.0 - 8.0 [facility] Basic Metabolic Profile (BMP )on 09-03-2024 BUN Normal 7-18 [facility] Comment on above: Result Comment: Canc elled via OM: Order cancelled - Patient discharged Performed By: #### L 500.2500 ####[facility] [address] [place], [address] BUN/CRE Normal 10-20 [facility] Comment on above: Result Comment: Canc elled via OM: Order cancelled - Patient discharged Performed By: #### L 500.2500 ####[facility] [address] [place], [address] CA,Total Normal 8.5-10.1 [facility] Comment on above: Result Comment: Canc elled via OM: Order cancelled - Patient discharged Performed By: #### L 500.2500 ####[facility] [address] [place], [address] CL Normal 98-107 [facility] Comment on above: Result Comment: Canc elled via OM: Order cancelled - Patient discharged Performed By: #### L 500.2500 ####[facility] [address] [place], [address] CO2 Normal 21.0-32.0 [facility] Comment on above: Result Comment: Canc elled via OM: Order cancelled - Patient discharged Performed By: #### L 500.2500 ####[facility] [address] [place], [address] CREAT,SERUM Normal 0.70-1.30 [facility] Comment on above: Result Comment: Canc elled via OM: Order cancelled - Patient discharged Performed By: #### L 500.2500 ####[facility] [address] [place], [address] EST GFR Normal >60 [facility] Comment on above: Result Comment: Canc elled via OM: Order cancelled - Patient discharged Performed By: #### L 500.2500 ####[facility] [address] [place], [address] EST GFR - AA Normal >60 [facility] Comment on above: Result Comment: Canc elled via OM: Order cancelled - Patient discharged Performed By: #### L 500.2500 ####[facility] [address] [place], [address] GAP Normal 5-15 [facility] Comment on above: Result Comment: Canc elled via OM: Order cancelled - Patient discharged Performed By: #### L 500.2500 ####[facility] [address] [place], [address] GLU Normal 74-106 [facility] Comment on above: Result Comment: Canc elled via OM: Order cancelled - Patient discharged Performed By: #### L 500.2500 ####[facility] [address] [place], [address] Potassium Normal 3.5-5.1 [facility] Comment on above: Result Comment: Canc elled via OM: Order cancelled - Patient discharged Performed By: #### L 500.2500 ####[facility] [address] [place], [address] Basic Metabolic Profile (BMP) Normal 136-145 [facility] Comment on above: Result Comment: Canc elled via OM: Order cancelled - Patient discharged Performed By: #### L 500.2500 ####[facility] [address] [place], [address] Absolute lymphocyte countOrd ered By: Bola Meraz on 09-02-2024 Lymphocytes Auto (Unsp spec) [#/Vol] 1.04 10*3/uL 0.83-4.51 [facility] Absolute neutrophil countOrd ered By: Bola Meraz on 09-02-2024 Neutrophils (Bld) [#/Vol] 14.0 10*3/uL High 2.0-7.7 [facility] Absolute neutrophil count 14.0 X10^3/uL High 2.0-7.7 [facility] Automated blood erythrocyte countOrdered By: Bola Meraz on 09-02-2024 RBC (Bld) [#/Vol] 3.68 10*6/uL Low 4.6-6.2 [facility] Comment on above: Performed By: #### L 100.0100 ####[facility] [address] [place], [address] Automated blood hematocrit ( percentage)Ordered By: Bola Meraz on 09-02-2024 Hematocrit (Bld) [Volume fraction] 30.8 % Low 40-54 [facility] Comment on above: Performed By: #### L 100.0100 ####[facility] [address] [facility] [address] Automated lymphocyte count a s percentage of total leukocytesOrdered By: Bola Meraz on 09-02-2024 Lymphocytes/100 WBC (Bld) 6.3 % Low 19-41 [facility] Comment on above: Performed By: #### L 100.0100 ####[facility] [address] [place], [address] Lymphocytes/100 WBC Auto (Unsp spec) 6.3 % Low 19-41 [facility] Basic Metabolic Profile (BMP )on 09-02-2024 BUN/CRE 16.9 RATIO Normal 10-20 [facility] Comment on above: Performed By: #### L 500.2500 ####[facility] [address] [place], [address] CA,Total 8.9 mg/dL Normal 8.5-10.1 [facility] Comment on above: Performed By: #### L 500.2500 ####[facility] [address] [place], [address] ECRCL 37.67 ml/min Normal [facility] Comment on above: Performed By: #### L 500.2500 ####[facility] [address] [place], [address] EST GFR - AA 34 mL/min Low >60 [facility] Comment on above: Result Comment: Afri can Venezuelan GFR Calc Performed By: #### L 500.2500 ####[facility] [address] [place], [address] GAP 8 Normal 5-15 [facility] Comment on above: Performed By: #### L 500.2500 ####[facility] [address] [place], [address] Basophil percentageOrdered B y: Bola Meraz on 09-02-2024 Basophils/100 WBC (Bld) 0.4 % Normal 0-1 [facility] Comment on above: Performed By: #### L 100.0100 ####[facility] [address] [place], [address] Basophil percentage 0.4 % 0-1 [facility] Bedside Glucoseon 09-02-2024 FINGERSTICK GLU 168 mg/dL High 74-106 [facility] Comment on above: Result Comment: BRISA MOROCHO OF PATIENT CARE PER NURSING PROTOCOL Performed By: #### L 501.080 ####[facility] [address] [place], [address] Blood urea nitrogen (BUN)/cr eatinine ratioOrdered By: Bola Meraz on 09-02-2024 Urea nitrogen/Creatinine [Mass ratio] 16.9 mg/mg - [facility] Blood urea nitrogen (BUN)/creatinine ratio 16.9 RATIO - [facility] CBC W/Diff, Automatedon 08-06 Absolute Lymph 1.04 X10 3/uL Normal 0.83-4.51 [facility] Comment on above: Performed By: #### L 100.0100 ####[facility] [address] [place], [address] Absolute Neut 14.0 X10 3/uL High 2.0-7.7 [facility] Comment on above: Performed By: #### L 100.0100 ####[facility] [address] [place], [address] IG% 1.300 High 0.0-0.9 [facility] Comment on above: Result Comment: IG% - Immature Granulocytes (promyelocytes, myelocytes andmetamyelocytes) > 1% indicates that a LEFT SHIFT is Present. Performed By: #### L 100.0100 ####[facility] [address] [place], [address] Nucleated RBC (Bld) [#/Vol] 0 10*3/uL Normal 0-5 [facility] Comment on above: Performed By: #### L 100.0100 ####[facility] [address] [place], [address] RDW SD 47.0 fl High 35.1-43.9 [facility] Comment on above: Performed By: #### L 100.0100 ####[facility] [address] [place], [address] Calcium [Mass/Vol]Ordered By : Bola Meraz on 09-02-2024 Serum or plasma calcium measurement (mass/volume) 8.9 mg/dL 8.5-10.1 [facility] Carbon dioxide measurementOr dered By: Bola Meraz on 09-02-2024 CO2 [Moles/Vol] 19.0 mmol/L Low 21.0-32.0 [facility] Comment on above: Performed By: #### L 500.2500 ####[facility] [address] [place], [address] Carbon dioxide measurement 19.0 mmol/L Low 21.0-32.0 [facility] Chloride measurementOrdered By: Bola Meraz on 09-02-2024 Chloride [Moles/Vol] 107 mmol/L Normal 98-107 [facility] Comment on above: Performed By: #### L 500.2500 ####[facility] [address] [place], [address] Chloride measurement 107 mmol/L 98-107 [facility] Creatinine [Mass/Vol]Ordered By: Bola Meraz on 09-02-2024 Serum or plasma creatinine measurement (mass/volume) 2.54 mg/dL High 0.70-1.30 [facility] Discharge Instructionon --2024 Discharge Instruction Normal [facility] Eosinophil percentageOrdered By: Bola Meraz on 09-02-2024 Eosinophils/100 WBC (Bld) 1.3 % Normal 0-5 [facility] Comment on above: Performed By: #### L 100.0100 ####[facility] [address] [place], [address] Eosinophil percentage 1.3 % 0-5 [facility] Erythrocyte distribution wid th (RBC) [Ratio]Ordered By: Bola Meraz on 09-02-2024 Erythrocyte distribution width ratio 15.7 % High 11.6-14.6 [facility] Erythrocyte distribution width standard deviation 47.0 fl High 35.1-43.9 [facility] Erythrocyte distribution wid th ratioOrdered By: Bola Meraz on 09-02-2024 Erythrocyte distribution width (RBC) [Ratio] 15.7 % High 11.6-14.6 [facility] Comment on above: Performed By: #### L 100.0100 ####[facility] [address] [place], [address] Erythrocyte distribution wid th standard deviationOrdered By: Bola Meraz on 09-02-2024 Erythrocyte distribution width (RBC) [Entitic vol] 47.0 fL High 35.1-43.9 [facility] Erythrocyte distribution width (RBC) [Ratio] 47.0 fl High 35.1-43.9 [facility] Estimated glomerular filtrat ion rate (GFR) AmericanOrdered By: Bola Meraz on 09-02-2024 Estimated GFR (MDRD) Amer 34 mL/min Low >60 [facility] Comment on above: GFR Calc Estimated glomerular filtration rate (GFR) 34 mL/min Low >60 [facility] Estimation of creatinine carol[place] aranceOrdered By: Bola Meraz on 09-02-2024 Estimated Creatinine Clearance Calc 37.67 ml/min [facility] Estimation of creatinine clearance 37.67 ml/min [facility] Glomerular filtration rate ( GFR) estimationOrdered By: Bola Meraz on 09-02-2024 GFR/1.73 sq M.predicted among non-blacks MDRD (S/P/Bld) [Vol rate/Area] 28 mL/min/{1.73_m2} Low >60 [facility] Comment on above: Result Comment: Non- GFR Calc Performed By: #### L 500.2500 ####[facility] [address] [place], [place], [id number] Estimated GFR (MDRD) Non-Af Amer 28 mL/min Low >60 [facility] Comment on above: Non- GFR Calc Glomerular filtration rate (GFR) estimation 28 mL/min Low >60 [facility] Glucose measurementOrdered B y: Bola Meraz on 09-02-2024 Glucose [Mass/Vol] 187 mg/dL [facility] 74-106 [facility] Comment on above: Fasting Glucose resu lt greater than or equal to 126 mg/dL suggests DIABETES MELLITUS per A.D.A. criteria. Result Comment: Fast ing Glucose result greater than or equal to 126 mg/dLsuggests DIABETES MELLITUS per A.D.A. criteria. Performed By: #### L 500.2500 ####[facility] [address] [place], [place], [address] Glucose measurement 187 mg/dL High 74-106 [facility] deOrdered By: Rick Carlin on 09-02-2024 Bedside Glucose (Misc Panel) 168 mg/dL High 74-106 [facility] Comment on above: MANAGEMENT OF PATIEN T CARE PER NURSING PROTOCOL Glucose [Mass/Vol] 168 mg/dL High 74-106 [facility] Glucose measurement at bedside 168 mg/dL High 74-106 [facility] Hematocrit Auto (Bld) [Volum e fraction]Ordered By: Bola Meraz on 09-02-2024 Automated blood hematocrit (percentage) 30.8 % Low 40-54 [facility] Hemoglobin measurementOrdere d By: Bola Meraz on 09-02-2024 Hemoglobin (Bld) [Mass/Vol] 10.7 g/dL Low 13.0-16.5 [facility] Comment on above: Performed By: #### L 100.0100 ####[facility] [address] [place], [place], [address] Hemoglobin measurement 10.7 g/dL Low 13.0-16.5 [facility] Immature granulocytes/100 WB C Auto (Bld)Ordered By: Bola Meraz on 09-02-2024 Immature granulocytes/100 WBC (Bld) 1.300 % High 0.0-0.9 [facility] Comment on above: IG% - Immature Granu locytes (promyelocytes, myelocytes and metamyelocytes) > 1% indicates that a LEFT SHIFT is Present. Automated immature granulocyte percentage 1.300 % High 0.0-0.9 [facility] Lymphocytes Auto (Unsp spec) [#/Vol]Ordered By: Bola Meraz on 09-02-2024 Lymphocytes (Bld) [#/Vol] 1.04 10*3/uL 0.83-4.51 [facility] Absolute lymphocyte count 1.04 X10^3/uL 0.83-4.51 [facility] Lymphocytes/100 WBC Auto (Un sp spec)Ordered By: Bola Meraz on 09-02-2024 Automated lymphocyte count as percentage of total leukocytes 6.3 % Low 19-41 [facility] MCV (RBC) [Entitic vol]Order ed By: Bola Meraz on 09-02-2024 MCV (mean corpuscular volume) determination 83.7 fL 80-94 [facility] MCV (mean corpuscular volume ) determinationOrdered By: Bola Meraz on 09-02-2024 MCV (RBC) [Entitic vol] 83.7 fL Normal 80-94 [facility] Comment on above: Performed By: #### L 100.0100 ####[facility] [address] [place], [address] Mean corpuscular hemoglobin (MCH) determinationOrdered By: Bola Meraz on 09-02-2024 MCH (RBC) [Entitic mass] 29.1 pg Normal 27.0-32.0 [facility] Comment on above: Performed By: #### L 100.0100 ####[facility] [address] [place], [address] Mean corpuscular hemoglobin (MCH) determination 29.1 pg 27.0-32.0 [facility] Mean corpuscular hemoglobin concentration (MCHC) determinationOrdered By: Bola Meraz on 09-02-2024 MCHC (RBC) [Mass/Vol] 34.7 g/dL Normal 32-36 [facility] Comment on above: Performed By: #### L 100.0100 ####[facility] [address] [place], [place], [address] Mean corpuscular hemoglobin concentration (MCHC) determination 34.7 g/dL 32-36 [facility] Mean platelet volume determi nationOrdered By: Bola Meraz on 09-02-2024 Platelet mean volume (Bld) [Entitic vol] 12.8 fL High 6.2-12.0 [facility] Comment on above: Performed By: #### L 100.0100 ####[facility] [address] [place], [address] Mean platelet volume determination 12.8 fl High 6.2-12.0 [facility] Monocyte percentageOrdered B y: Bola Meraz on 09-02-2024 Monocytes/100 WBC (Bld) 6.0 % Normal 0-10 [facility] Comment on above: Performed By: #### L 100.0100 ####[facility] [address] [place], [address] Monocyte percentage 6.0 % 0-10 [facility] Neutrophil percentageOrdered By: Bola Meraz on 09-02-2024 Neutrophils/100 WBC (Bld) 84.7 % High 47-70 [facility] Comment on above: Performed By: #### L 100.0100 ####[facility] [address] [place], [address] Neutrophil percentage 84.7 % High 47-70 [facility] Nucleated red blood cell per centageOrdered By: Bola Meraz on 09-02-2024 Nucleated RBC/100 WBC (Bld) [Ratio] 0 % 0-5 [facility] Nucleated red blood cell percentage 0 % 0-5 [facility] Platelet countOrdered By: Oliver on 09-02-2024 Platelets (Bld) [#/Vol] 82 10*3/uL Low 150-450 [facility] Comment on above: Performed By: #### L 100.0100 ####[facility] [address] [place], [address] Platelet count 82 K/mm3 Low 150-450 [facility] Potassium measurementOrdered By: Bola Meraz on 09-02-2024 Potassium [Moles/Vol] 4.0 mmol/L Normal 3.5-5.1 [facility] Comment on above: Performed By: #### L 500.2500 ####[facility] [address] [place], [address] Potassium measurement 4.0 mmol/L 3.5-5.1 [facility] RBC Auto (Bld) [#/Vol]Ordere d By: Bola Meraz on 09-02-2024 Automated blood erythrocyte count 3.68 M/mm3 Low 4.6-6.2 [facility] Serum anion gap measurementO rdered By: Bola Meraz on 09-02-2024 Anion gap [Moles/Vol] 8 mmol/L 5-15 [facility] Serum anion gap measurement 8 5-15 [facility] Serum or plasma calcium roosevelt urement (mass/volume)Ordered By: Bola Mearz on 09-02-2024 Calcium [Mass/Vol] 8.9 mg/dL 8.5-10.1 [facility] Serum or plasma creatinine m easurement (mass/volume)Ordered By: Bola Meraz on 09-02-2024 Creatinine [Mass/Vol] 2.54 mg/dL High 0.70-1.30 [facility] Comment on above: The validity of the calculated GFR & GFRAA in patients over 70 years has not been determined. Clinical correlation is essential. Result Comment: The validity of the calculated GFR GFRAA in patients over70 years has not been determined. Clinical correlation isessential. Performed By: #### L 500.2500 ####[facility] [address] [place], [address] Serum or plasma urea nitroge n measurement (mass/volume)Ordered By: Bola Meraz on 09-02-2024 Urea nitrogen [Mass/Vol] 43 mg/dL High 02-18 [facility] Comment on above: Performed By: #### L 500.2500 ####[facility] [address] [place], [address] Sodium levelOrdered By: Deanna Meraz on 09-02-2024 Sodium [Moles/Vol] 133 mmol/L Low 136-145 [facility] Comment on above: Performed By: #### L 500.2500 ####[facility] [address] [place], [address] Sodium level 133 mmol/L Low 136-145 [facility] Urea nitrogen [Mass/Vol]Orde red By: Bola Meraz on 09-02-2024 Serum or plasma urea nitrogen measurement (mass/volume) 43 mg/dL High 7-18 [facility] White blood cell (WBC) count Ordered By: Bola Meraz on 09-02-2024 WBC (Bld) [#/Vol] 16.5 10*3/uL High 4.4-11.0 [facility] Comment on above: Performed By: #### L 100.0100 ####[facility] [address] [place], [address] White blood cell (WBC) count 16.5 K/mm3 High 4.4-11.0 [facility] Basic Metabolic Profile (BMP )on 09-01-2024 BUN/CRE 14.6 RATIO Normal 10-20 [facility] Comment on above: Performed By: #### L 500.2500 ####[facility] [address] [place], [address] CA,Total 8.6 mg/dL Normal 8.5-10.1 [facility] Comment on above: Performed By: #### L 500.2500 ####[facility] [address] [place], [address] Chloride [Moles/Vol] 107 mmol/L Normal 98-107 [facility] Comment on above: Performed By: #### L 500.2500 ####[facility] [address] [place], [address] CO2 [Moles/Vol] 16.0 mmol/L Low 21.0-32.0 [facility] Comment on above: Performed By: #### L 500.2500 ####[facility] [address] [place], [address] Creatinine [Mass/Vol] 3.35 mg/dL High 0.70-1.30 [facility] Comment on above: Result Comment: The validity of the calculated GFR GFRAA in patients over70 years has not been determined. Clinical correlation isessential. Performed By: #### L 500.2500 ####[facility] [address] [place], [address] ECRCL 28.26 ml/min Normal [facility] Comment on above: Performed By: #### L 500.2500 ####[facility] [address] [place], [address] EST GFR - AA 25 mL/min Low >60 [facility] Comment on above: Result Comment: Afri can Venezuelan GFR Calc Performed By: #### L 500.2500 ####[facility] [address] [place], [address] GAP 11 Normal 5-15 [facility] Comment on above: Performed By: #### L 500.2500 ####[facility] [address] [place], [address] GFR/1.73 sq M.predicted among non-blacks MDRD (S/P/Bld) [Vol rate/Area] 20 mL/min/{1.73_m2} Low >60 [facility] Comment on above: Result Comment: Non- GFR Calc Performed By: #### L 500.2500 ####[facility] [address] [place], [address] Glucose [Mass/Vol] 231 mg/dL High 74-106 [facility] Comment on above: Result Comment: Gluc ose result greater than or equal to 200 mg/dLsuggests DIABETES MELLITUS per A.D.A. criteria. Performed By: #### L 500.2500 ####[facility] [address] [place], [address] Potassium [Moles/Vol] 3.7 mmol/L Normal 3.5-5.1 [facility] Comment on above: Performed By: #### L 500.2500 ####[facility] [address] [place], [address] Sodium [Moles/Vol] 134 mmol/L Low 136-145 [facility] Comment on above: Performed By: #### L 500.2500 ####[facility] [address] [place], [address] Urea nitrogen [Mass/Vol] 49 mg/dL High 7-18 [facility] Comment on above: Performed By: #### L 500.2500 ####[facility] [address] [place], [address] Bedside Glucoseon 09-01-2024 FINGERSTICK GLU 204 mg/dL High 74-106 [facility] Comment on above: Result Comment: BRISA GEMENT OF PATIENT CARE PER NURSING PROTOCOL Performed By: #### L 501.080 ####[facility] [address] [place], [address] FINGERSTICK GLU 192 mg/dL High 74-106 [facility] Comment on above: Result Comment: BRISA GEMENT OF PATIENT CARE PER NURSING PROTOCOL Performed By: #### L 501.080 ####[facility] [address] [place], [address] FINGERSTICK GLU 173 mg/dL High 74-106 [facility] Comment on above: Result Comment: BRISA GEMENT OF PATIENT CARE PER NURSING PROTOCOL Performed By: #### L 501.080 ####[facility] [address] [place], [address] MR/PN.GIon 09-01-2024 MR/PN.GI Normal [facility] Basic Metabolic Profile (BMP )on 08-31-2024 BUN/CRE 13.5 RATIO Normal 10-20 [facility] Comment on above: Performed By: #### L 500.2500 ####[facility] [address] [place], [address] CA,Total 8.4 mg/dL Low 8.5-10.1 [facility] Comment on above: Performed By: #### L 500.2500 ####[facility] [address] [place], [address] Chloride [Moles/Vol] 107 mmol/L Normal 98-107 [facility] Comment on above: Performed By: #### L 500.2500 ####[facility] [address] [place], [address] CO2 [Moles/Vol] 18.0 mmol/L Low 21.0-32.0 [facility] Comment on above: Performed By: #### L 500.2500 ####[facility] [address] [place], [address] Creatinine [Mass/Vol] 4.36 mg/dL High 0.70-1.30 [facility] Comment on above: Result Comment: The validity of the calculated GFR GFRAA in patients over70 years has not been determined. Clinical correlation isessential. Performed By: #### L 500.2500 ####[facility] [address] [place], [address] ECRCL 21.72 ml/min Normal [facility] Comment on above: Performed By: #### L 500.2500 ####[facility] [address] [place], [address] EST GFR - AA 18 mL/min Low >60 [facility] Comment on above: Result Comment: Afri can Venezuelan GFR Calc Performed By: #### L 500.2500 ####[facility] [address] [place], [address] GAP 10 Normal 5-15 [facility] Comment on above: Performed By: #### L 500.2500 ####[facility] [address] [place], [address] GFR/1.73 sq M.predicted among non-blacks MDRD (S/P/Bld) [Vol rate/Area] 15 mL/min/{1.73_m2} Low >60 [facility] Comment on above: Result Comment: Non- GFR Calc Performed By: #### L 500.2500 ####[facility] [address] [place], [address] Glucose [Mass/Vol] 241 mg/dL High 74-106 [facility] Comment on above: Result Comment: Gluc ose result greater than or equal to 200 mg/dLsuggests DIABETES MELLITUS per A.D.A. criteria. Performed By: #### L 500.2500 ####[facility] [address] [place], [address] Potassium [Moles/Vol] 3.5 mmol/L Normal 3.5-5.1 [facility] Comment on above: Performed By: #### L 500.2500 ####[facility] [address] [place], [address] Sodium [Moles/Vol] 135 mmol/L Low 136-145 [facility] Comment on above: Performed By: #### L 500.2500 ####[facility] [address] [place], [address] Urea nitrogen [Mass/Vol] 59 mg/dL High 7-18 [facility] Comment on above: Performed By: #### L 500.2500 ####[facility] [address] [place], [address] Bedside Glucoseon 08-31-2024 FINGERSTICK GLU 222 mg/dL High 74-106 [facility] Comment on above: Result Comment: BRISA GEMENT OF PATIENT CARE PER NURSING PROTOCOL Performed By: #### L 501.080 ####[facility] [address] [place], [address] FINGERSTICK GLU 219 mg/dL High -106 [facility] Comment on above: Result Comment: BRISA GEMENT OF PATIENT CARE PER NURSING PROTOCOL Performed By: #### L 501.080 ####[facility] [address] [place], [address] FINGERSTICK GLU 205 mg/dL High 74-106 [facility] Comment on above: Result Comment: BRISA GEMENT OF PATIENT CARE PER NURSING PROTOCOL Performed By: #### L 501.080 ####[facility] [address] [place], [address] FINGERSTICK GLU 193 mg/dL High 74-106 [facility] Comment on above: Result Comment: BRISA GEMENT OF PATIENT CARE PER NURSING PROTOCOL Performed By: #### L 501.080 ####[facility] [address] [place], [address] FINGERSTICK GLU 273 mg/dL High 74-106 [facility] Comment on above: Result Comment: BRISA GEMENT OF PATIENT CARE PER NURSING PROTOCOL Performed By: #### L 501.080 ####[facility] [address] [place], [address] CBC W/Diff, Automatedon 08-05 Absolute Lymph 0.80 X10 3/uL Low 0.83-4.51 [facility] Comment on above: Performed By: #### L 100.0100 ####[facility] [address] [place], [address] Absolute Neut 8.6 X10 3/uL High 2.0-7.7 [facility] Comment on above: Performed By: #### L 100.0100 ####[facility] [address] [place], [address] Basophils/100 WBC (Bld) 0.3 % Normal 0-1 [facility] Comment on above: Performed By: #### L 100.0100 ####[facility] [address] [place], [address] Eosinophils/100 WBC (Bld) 2.0 % Normal 0-5 [facility] Comment on above: Performed By: #### L 100.0100 ####[facility] [address] [place], [address] Erythrocyte distribution width (RBC) [Ratio] 15.4 % High 11.6-14.6 [facility] Comment on above: Performed By: #### L 100.0100 ####[facility] [address] [place], [address] Hematocrit (Bld) [Volume fraction] 26.6 % Low 40-54 [facility] Comment on above: Performed By: #### L 100.0100 ####[facility] [address] [place], [address] Hemoglobin (Bld) [Mass/Vol] 9.2 g/dL Low 13.0-16.5 [facility] Comment on above: Performed By: #### L 100.0100 ####[facility] [address] [place], [address] IG% 1.200 High 0.0-0.9 [facility] Comment on above: Result Comment: IG% - Immature Granulocytes (promyelocytes, myelocytes andmetamyelocytes) > 1% indicates that a LEFT SHIFT is Present. Performed By: #### L 100.0100 ####[facility] [address] [place], [address] Lymphocytes/100 WBC (Bld) 7.7 % Low 19-41 [facility] Comment on above: Performed By: #### L 100.0100 ####[facility] [address] [place], [address] MCH (RBC) [Entitic mass] 28.8 pg Normal 27.0-32.0 [facility] Comment on above: Performed By: #### L 100.0100 ####[facility] [address] [place], [address] MCHC (RBC) [Mass/Vol] 34.6 g/dL Normal 32-36 [facility] Comment on above: Performed By: #### L 100.0100 ####[facility] [facility] [address] [place], [address] MCV (RBC) [Entitic vol] 83.4 fL Normal 80-94 [facility] Comment on above: Performed By: #### L 100.0100 ####[facility] [address] [place], [address] Monocytes/100 WBC (Bld) 6.6 % Normal 0-10 [facility] Comment on above: Performed By: #### L 100.0100 ####[facility] [address] [place], [address] Neutrophils/100 WBC (Bld) 82.2 % High 47-70 [facility] Comment on above: Performed By: #### L 100.0100 ####[facility] [address] [place], [address] Nucleated RBC (Bld) [#/Vol] 0 10*3/uL Normal 0-5 [facility] Comment on above: Performed By: #### L 100.0100 ####[facility] [address] [place], [address] Platelet mean volume (Bld) [Entitic vol] 13.1 fL High 6.2-12.0 [facility] Comment on above: Performed By: #### L 100.0100 ####[facility] [address] [place], [address] Platelets (Bld) [#/Vol] 56 10*3/uL Low 150-450 [facility] Comment on above: Performed By: #### L 100.0100 ####[facility] [address] [place], [address] RBC (Bld) [#/Vol] 3.19 10*6/uL Low 4.6-6.2 [facility] Comment on above: Performed By: #### L 100.0100 ####[facility] [address] [place], [address] RDW SD 46.5 fl High 35.1-43.9 [facility] Comment on above: Performed By: #### L 100.0100 ####[facility] [address] [place], [address] WBC (Bld) [#/Vol] 10.4 10*3/uL Normal 4.4-11.0 [facility] Comment on above: Performed By: #### L 100.0100 ####[facility] [address] [place], [address] MR/PN.GIon 08-31-2024 MR/PN.GI Normal [facility] ALP [Catalytic activity/Vol] Ordered By: [facility] Mone on 08-30-2024 Serum or plasma alkaline phosphatase measurement 143 U/L High 45-117 [facility] ALT [Catalytic activity/Vol] Ordered By: [facility] Mone on 08-30-2024 Serum or plasma alanine aminotransferase (ALT) measurement 19 U/L 16-61 [facility] Albumin [Mass/Vol]Ordered By : [facility] on 08-30-2024 Serum or plasma albumin measurement (mass/volume) 1.9 g/dL Low 3.2-5.0 [facility] Ammoniaon 08-30-2024 Ammonia (P) [Moles/Vol] 64.0 umol/L High 11-32 [facility] Comment on above: Performed By: #### L 100.0100, L503.5510, L503.6550, L503.6030, L500.2500, L501.9985, L500.3400 ####[facility] [address] [place], [address] Basic Metabolic Profile (BMP )on 08-30-2024 BUN/CRE 13.6 RATIO Normal 10-20 [facility] Comment on above: Performed By: #### L 100.0100, L503.5510, L503.6550, L503.6030, L500.2500, L501.9985, L500.3400 ####[facility] [address] [place], [address] CA,Total 8.0 mg/dL Low 8.5-10.1 [facility] Comment on above: Performed By: #### L 100.0100, L503.5510, L503.6550, L503.6030, L500.2500, L501.9985, L500.3400 ####[facility] [address] [place], [address] Chloride [Moles/Vol] 105 mmol/L Normal 98-107 [facility] Comment on above: Performed By: #### L 100.0100, L503.5510, L503.6550, L503.6030, L500.2500, L501.9985, L500.3400 ####[facility] [address] [place], [address] CO2 [Moles/Vol] 15.0 mmol/L Low 21.0-32.0 [facility] Comment on above: Performed By: #### L 100.0100, L503.5510, L503.6550, L503.6030, L500.2500, L501.9985, L500.3400 ####[facility] [address] [place], [address] Creatinine [Mass/Vol] 5.37 mg/dL High 0.70-1.30 [facility] Comment on above: Result Comment: The validity of the calculated GFR GFRAA in patients over70 years has not been determined. Clinical correlation isessential. Performed By: #### L 100.0100, L503.5510, L503.6550, L503.6030, L500.2500, L501.9985, L500.3400 ####[facility] [address] [place], [address] ECRCL 17.63 ml/min Normal [facility] Comment on above: Performed By: #### L 100.0100, L503.5510, L503.6550, L503.6030, L500.2500, L501.9985, L500.3400 ####[facility] [address] [place], [address] EST GFR - AA 14 mL/min Low >60 [facility] Comment on above: Result Comment: Afri can Venezuelan GFR Calc Performed By: #### L 100.0100, L503.5510, L503.6550, L503.6030, L500.2500, L501.9985, L500.3400 ####[facility] [address] [place], [address] GAP 13 Normal 5-15 [facility] Comment on above: Performed By: #### L 100.0100, L503.5510, L503.6550, L503.6030, L500.2500, L501.9985, L500.3400 ####[facility] [address] [place], [place], [id number](385) GFR/1.73 sq M.predicted among non-blacks MDRD (S/P/Bld) [Vol rate/Area] 12 mL/min/{1.73_m2} Low >60 [facility] Comment on above: Result Comment: Non- GFR Calc Performed By: #### L 100.0100, L503.5510, L503.6550, L503.6030, L500.2500, L501.9985, L500.3400 ####[facility] [address] [place], [place], [id number] Glucose [Mass/Vol] 267 mg/dL High 74-106 [facility] Comment on above: Result Comment: Gluc ose result greater than or equal to 200 mg/dLsuggests DIABETES MELLITUS per A.D.A. criteria. Performed By: #### L 100.0100, L503.5510, L503.6550, L503.6030, L500.2500, L501.9985, L500.3400 ####[facility] [address] [place], [place], [id number] Potassium [Moles/Vol] 3.4 mmol/L Low 3.5-5.1 [facility] Comment on above: Performed By: #### L 100.0100, L503.5510, L503.6550, L503.6030, L500.2500, L501.9985, L500.3400 ####[facility] [address] [place], [address] Sodium [Moles/Vol] 133 mmol/L Low 136-145 [facility] Comment on above: Performed By: #### L 100.0100, L503.5510, L503.6550, L503.6030, L500.2500, L501.9985, L500.3400 ####[facility] [address] [place], [address] Urea nitrogen [Mass/Vol] 73 mg/dL High 7-18 [facility] Comment on above: Performed By: #### L 100.0100, L503.5510, L503.6550, L503.6030, L500.2500, L501.9985, L500.3400 ####[facility] [address] [place], [address] Bedside Glucoseon 08-30-2024 FINGERSTICK GLU 312 mg/dL High 74-106 [facility] Comment on above: Result Comment: BRISA GEMENT OF PATIENT CARE PER NURSING PROTOCOL Performed By: #### L 501.080 ####[facility] [address] [place], [address] FINGERSTICK GLU 208 mg/dL High 74-106 [facility] Comment on above: Result Comment: BRISA GEMENT OF PATIENT CARE PER NURSING PROTOCOL Performed By: #### L 501.080 ####[facility] [address] [place], [address] FINGERSTICK GLU 213 mg/dL High 74-106 [facility] Comment on above: Result Comment: BRISA GEMENT OF PATIENT CARE PER NURSING PROTOCOL Performed By: #### L 501.080 ####[facility] [address] [place], [address] FINGERSTICK GLU 259 mg/dL High 74-106 [facility] Comment on above: Result Comment: BRISA GEMENT OF PATIENT CARE PER NURSING PROTOCOL Performed By: #### L 501.080 ####[facility] [address] [place], [address] FINGERSTICK GLU 167 mg/dL High 74-106 [facility] Comment on above: Result Comment: BRISA GEMENT OF PATIENT CARE PER NURSING PROTOCOL Performed By: #### L 501.080 ####[facility] [address] [place], [address] Bilirubin directOrdered By: Maria Guadalupe Shore on 08-30-2024 Bilirubin.direct [Mass/Vol] 0.83 mg/dL High 0.00-0.30 [facility] Bilirubin, totalOrdered By: Maria Guadalupe Shore on 08-30-2024 Bilirubin [Mass/Vol] 1.30 mg/dL High 0.20-1.00 [facility] Comment on above: For patients on eltr ombopag therapy, use of Dimension [place] TBIL is not recommended. Bilirubin, total 1.30 mg/dL High 0.20-1.00 [facility] Bilirubin.direct [Mass/Vol]O rdered By: Maria Guadalupe Shore on 08-30-2024 Bilirubin direct 0.83 mg/dL High 0.00-0.30 [facility] CBC W/Diff, Automatedon 08-05 Absolute Lymph 1.01 X10 3/uL Normal 0.83-4.51 [facility] Comment on above: Performed By: #### L 100.0100, L503.5510, L503.6550, L503.6030, L500.2500, L501.9985, L500.3400 ####[facility] [address] [place], [address] Absolute Neut 7.6 X10 3/uL Normal 2.0-7.7 [facility] Comment on above: Performed By: #### L 100.0100, L503.5510, L503.6550, L503.6030, L500.2500, L501.9985, L500.3400 ####[facility] [address] [place], [address] Basophils/100 WBC (Bld) 0.4 % Normal 0-1 [facility] Comment on above: Performed By: #### L 100.0100, L503.5510, L503.6550, L503.6030, L500.2500, L501.9985, L500.3400 ####[facility] [address] [place], [address] Eosinophils/100 WBC (Bld) 3.1 % Normal 0-5 [facility] Comment on above: Performed By: #### L 100.0100, L503.5510, L503.6550, L503.6030, L500.2500, L501.9985, L500.3400 ####[facility] [address] [place], [address] Erythrocyte distribution width (RBC) [Ratio] 15.6 % High 11.6-14.6 [facility] Comment on above: Performed By: #### L 100.0100, L503.5510, L503.6550, L503.6030, L500.2500, L501.9985, L500.3400 ####[facility] [address] [place], [address] Hematocrit (Bld) [Volume fraction] 27.9 % Low 40-54 [facility] Comment on above: Performed By: #### L 100.0100, L503.5510, L503.6550, L503.6030, L500.2500, L501.9985, L500.3400 ####[facility] [address] [place], [address] Hemoglobin (Bld) [Mass/Vol] 9.5 g/dL Low 13.0-16.5 [facility] Comment on above: Performed By: #### L 100.0100, L503.5510, L503.6550, L503.6030, L500.2500, L501.9985, L500.3400 ####[facility] [address] [place], [address] IG% 0.700 Normal 0.0-0.9 [facility] Comment on above: Result Comment: IG% - Immature Granulocytes (promyelocytes, myelocytes andmetamyelocytes) > 1% indicates that a LEFT SHIFT is Present. Performed By: #### L 100.0100, L503.5510, L503.6550, L503.6030, L500.2500, L501.9985, L500.3400 ####[facility] [address] [place], [address] Lymphocytes/100 WBC (Bld) 10.1 % Low 19-41 [facility] Comment on above: Performed By: #### L 100.0100, L503.5510, L503.6550, L503.6030, L500.2500, L501.9985, L500.3400 ####[facility] [address] [place], [address] MCH (RBC) [Entitic mass] 28.9 pg Normal 27.0-32.0 [facility] Comment on above: Performed By: #### L 100.0100, L503.5510, L503.6550, L503.6030, L500.2500, L501.9985, L500.3400 ####[facility] [address] [place], [address] MCHC (RBC) [Mass/Vol] 34.1 g/dL Normal 32-36 [facility] Comment on above: Performed By: #### L 100.0100, L503.5510, L503.6550, L503.6030, L500.2500, L501.9985, L500.3400 ####[facility] [address] [place], [address] MCV (RBC) [Entitic vol] 84.8 fL Normal 80-94 [facility] Comment on above: Performed By: #### L 100.0100, L503.5510, L503.6550, L503.6030, L500.2500, L501.9985, L500.3400 ####[facility] [address] [place], [address] Monocytes/100 WBC (Bld) 9.3 % Normal 0-10 [facility] Comment on above: Performed By: #### L 100.0100, L503.5510, L503.6550, L503.6030, L500.2500, L501.9985, L500.3400 ####[facility] [address] [place], [address] Neutrophils/100 WBC (Bld) 76.4 % High 47-70 [facility] Comment on above: Performed By: #### L 100.0100, L503.5510, L503.6550, L503.6030, L500.2500, L501.9985, L500.3400 ####[facility] [address] [place], [address] Nucleated RBC (Bld) [#/Vol] 0 10*3/uL Normal 0-5 [facility] Comment on above: Performed By: #### L 100.0100, L503.5510, L503.6550, L503.6030, L500.2500, L501.9985, L500.3400 ####[facility] [address] [place], [address] Platelet mean volume (Bld) [Entitic vol] 12.6 fL High 6.2-12.0 [facility] Comment on above: Performed By: #### L 100.0100, L503.5510, L503.6550, L503.6030, L500.2500, L501.9985, L500.3400 ####[facility] [address] [place], [address] Platelets (Bld) [#/Vol] 67 10*3/uL Low 150-450 [facility] Comment on above: Performed By: #### L 100.0100, L503.5510, L503.6550, L503.6030, L500.2500, L501.9985, L500.3400 ####[facility] [address] [place], [address] RBC (Bld) [#/Vol] 3.29 10*6/uL Low 4.6-6.2 [facility] Comment on above: Performed By: #### L 100.0100, L503.5510, L503.6550, L503.6030, L500.2500, L501.9985, L500.3400 ####[facility] [address] [place], [address] RDW SD 48.4 fl High 35.1-43.9 [facility] Comment on above: Performed By: #### L 100.0100, L503.5510, L503.6550, L503.6030, L500.2500, L501.9985, L500.3400 ####[facility] [address] [place], [address] WBC (Bld) [#/Vol] 10.0 10*3/uL Normal 4.4-11.0 [facility] Comment on above: Performed By: #### L 100.0100, L503.5510, L503.6550, L503.6030, L500.2500, L501.9985, L500.3400 ####[facility] [address] [place], [place], [address] Consultation - Intensiviston 08-30-2024 Consultation - Customer Account Representative Normal [facility] Consultation - Nephrologyon 08-30-2024 Consultation - Nephrology Normal [facility] Creatinine, Urine (random)on 08-30-2024 UR CREAT 173.00 mg/dL Normal NO RANGE EST. [facility] Comment on above: Performed By: #### L 501.5500, L501.1200 ####[facility] [address] [place], [place], [id number](055) Ferritinon 08-30-2024 Ferritin [Mass/Vol] 85 ng/mL Normal -388 [facility] Comment on above: Performed By: #### L 100.0100, L503.5510, L503.6550, L503.6030, L500.2500, L501.9985, L500.3400 ####[facility] [address] [place], [place], [address] Ferritin measurementOrdered By: Maria Guadalupe Shore on 08-30-2024 Ferritin [Mass/Vol] 85 ng/mL 388 [facility] Ferritin measurement 85 ng/mL [facility] HH, Hemoglobin AND Hematocri ton 08-30-2024 Hematocrit (Bld) [Volume fraction] 28.5 % Low 40-54 [facility] Comment on above: Performed By: #### L 100.0600 ####[facility] [address] [place], [place], [address] Hemoglobin (Bld) [Mass/Vol] 9.8 g/dL Low 13.0-16.5 [facility] Comment on above: Performed By: #### L 100.0600 ####[facility] [address] [place], [place], [address] HbA1c (Bld) [Mass fraction]O rdered By: Maria Guadalupe Shore on 08-30-2024 Hemoglobin A1c percentage 7.9 % High 3.8-5.6 [facility] Hemoglobin A1con 08-30-2024 HbA1c (Bld) [Mass fraction] 7.9 % High 3.8-5.6 [facility] Comment on above: Result Comment: Norm al < 5.7 % Prediabetic 5.7 - 6.4 % Diabetic >or= 6.5 % Please note range changes. Performed By: #### L 100.0100, L503.5510, L503.6550, L503.6030, L500.2500, L501.9985, L500.3400 ####[facility] [address] [place], [place], [id number] Hemoglobin A1c percentageOrd ered By: Maria Guadalupe Shore on 08-30-2024 HbA1c (Bld) [Mass fraction] 7.9 % High 3.8-5.6 [facility] Comment on above: Normal < 5.7 % Predi abetic 5.7 - 6.4 % Diabetic >or= 6.5 % Please note range changes. Iron (Unsp spec) [Mass/Mass] Ordered By: Maria Guadalupe Shore on 08-30-2024 Iron [Mass/Vol] 62 ug/dL Low 65-175 [facility] Iron measurement (mass/mass) 62 ug/dL Low 65-175 [facility] Iron measurement (mass/mass) Ordered By: Maria Guadalupe Shore on 08-30-2024 Iron (Unsp spec) [Mass/Mass] 62 ug/dL Low 65-175 [facility] Iron saturation [Mass fracti on]Ordered By: Maria Guaadlupe Shore on 08-30-2024 Iron Saturation 33.9 % 15.0-55.0 [facility] Serum or plasma iron saturation measurement (mass fraction) 33.9 % 15.0-55.0 [facility] Iron+Iron Binding Capacityon 08-30-2024 Iron [Mass/Vol] 62 ug/dL Low 65-175 [facility] Comment on above: Performed By: #### L 100.0100, L503.5510, L503.6550, L503.6030, L500.2500, L501.9985, L500.3400 ####[facility] [address] [place], [address] IRON SATURATION 33.9 Normal 15.0-55.0 [facility] Comment on above: Performed By: #### L 100.0100, L503.5510, L503.6550, L503.6030, L500.2500, L501.9985, L500.3400 ####[facility] [address] [place], [address] TIBC 183 ug/dL Low 250-450 [facility] Comment on above: Performed By: #### L 100.0100, L503.5510, L503.6550, L503.6030, L500.2500, L501.9985, L500.3400 ####[facility] [address] [place], [address] Laboratory - Chemistry and C hemistry - challengeOrdered By: Maria Guadalupe Shore on 08-30-2024 AST [Catalytic activity/Vol] 22 U/L 15-37 [facility] Liveron 08-30-2024 Liver Normal [facility] Liver Profileon 08-30-2024 Albumin [Mass/Vol] 1.9 g/dL Low 3.2-5.0 [facility] Comment on above: Performed By: #### L 100.0100, L503.5510, L503.6550, L503.6030, L500.2500, L501.9985, L500.3400 ####[facility] [address] [place], [place], [id number] ALK P 143 U/L High 45-117 [facility] Comment on above: Performed By: #### L 100.0100, L503.5510, L503.6550, L503.6030, L500.2500, L501.9985, L500.3400 ####[facility] [address] [place], [address] ALT [Catalytic activity/Vol] 19 U/L Normal 16-61 [facility] Comment on above: Performed By: #### L 100.0100, L503.5510, L503.6550, L503.6030, L500.2500, L501.9985, L500.3400 ####[facility] [address] [place], [address] AST [Catalytic activity/Vol] 22 U/L Normal 15-37 [facility] Comment on above: Performed By: #### L 100.0100, L503.5510, L503.6550, L503.6030, L500.2500, L501.9985, L500.3400 ####[facility] [address] [place], [address] Bilirubin [Mass/Vol] 1.30 mg/dL High 0.20-1.00 [facility] Comment on above: Result Comment: For patients on eltrombopag therapy, use of Dimension [place] TBIL is not recommended. Performed By: #### L 100.0100, L503.5510, L503.6550, L503.6030, L500.2500, L501.9985, L500.3400 ####[facility] [address] [place], [address] Bilirubin.direct [Mass/Vol] 0.83 mg/dL High 0.00-0.30 [facility] Comment on above: Performed By: #### L 100.0100, L503.5510, L503.6550, L503.6030, L500.2500, L501.9985, L500.3400 ####[facility] [address] [place], [address] Globulin (S) [Mass/Vol] 3.4 g/dL Normal 2.2-4.2 [facility] Comment on above: Performed By: #### L 100.0100, L503.5510, L503.6550, L503.6030, L500.2500, L501.9985, L500.3400 ####[facility] [address] [place], [address] T PROT 5.3 g/dL Low 6.4-8.2 [facility] Comment on above: Performed By: #### L 100.0100, L503.6010, L503.7350, L503.6030, L500.2500, L501.9985, L500.3400 ####[facility] [address] [place], [address] MR/CON.PCM.GIon 08-30-2024 MR/CON.PCM.GI Normal [facility] No Panel InformationOrdered By: Maria Guadalupe Shore on 08-30-2024 22 U/L 15-37 [facility] Serum globulin measurementOr dered By: Maria Guadalupe Shore on 08-30-2024 Globulin (S) [Mass/Vol] 3.4 g/dL 2.2-4.2 [facility] Serum globulin measurement 3.4 g/dL 2.2-4.2 [facility] Serum or plasma alanine thomas otransferase (ALT) measurementOrdered By: Maria Guadalupe Shore on 08-30-2024 ALT [Catalytic activity/Vol] 19 U/L 16-61 [facility] Serum or plasma albumin roosevelt urement (mass/volume)Ordered By: Maria Guadalupe Shore 08-30-2024 Albumin [Mass/Vol] 1.9 g/dL Low 3.2-5.0 [facility] Serum or plasma alkaline kendrick sphatase measurementOrdered By: Maria Guadalupe Shore 08-30-2024 ALP [Catalytic activity/Vol] 143 U/L High 45-117 [facility] Serum or plasma iron saturat ion measurement (mass fraction)Ordered By: Maria Guadalupe Shore on 08-30-2024 Iron saturation [Mass fraction] 33.9 % 15.0-55.0 [facility] TIBCOrdered By: Maria Guadalupe Shore on 08-30-2024 Total Iron Binding Capacity 183 ug/dL Low 250-450 [facility] TIBC 183 ug/dL Low 250-450 [facility] Total proteinOrdered By: Caryl Shore on 08-30-2024 Protein [Mass/Vol] 5.3 g/dL Low 6.4-8.2 [facility] Total protein 5.3 g/dL Low 6.4-8.2 [facility] Urine Cultureon 08-30-2024 URC Culture exhibits no growth. Normal [facility] Comment on above: Performed By: #### M 100.6921 ####[facility] [address] [place], [address] Venous blood ammonia measure mentOrdered By: Maria Guadalupe Shore on 08-30-2024 Ammonia (P) [Moles/Vol] 64.0 umol/L High [facility] Venous blood ammonia measurement 64.0 umol/L High [facility] 12 Lead EKGon 08-29-2024 12 Lead EKG Normal [facility] Activated partial thrombopla stin time (aPTT) in platelet poor plasma by coagulation aOrdered By: Luis Carlos Anderson on 08-29-2024 aPTT Coag (PPP) [Time] 40.9 s High 24.1-36.2 [facility] Albumin to globulin ratioOrd ered By: Luis Carlos Anderson on 08-29-2024 Albumin/Globulin [Mass ratio] 0.4 {ratio} Low 0.9-2.4 [facility] Albumin to globulin ratio 0.4 RATIO Low 0.9-2.4 [facility] Ammoniaon 08-29-2024 Ammonia (P) [Moles/Vol] 99.0 umol/L High [facility] Comment on above: Performed By: #### L 503.5555, L300.4310, L300.3900 ####[facility] [id number] [place], [place], [id number] Bacteria LM.HPF (Urine sed) [#/Area]Ordered By: Luis Carlos Anderson on 08-29-2024 Urine Bacteria RARE /hpf None Seen [facility] Urine sediment bacteria count by microscopy (number/high power field) RARE /hpf None Seen [facility] Bilirubin Test strip Ql (U)O rdered By: Luis Carlos Anderson on 08-29-2024 Bilirubin Ql (U) 1 mg/dL High Negative [facility] Comment on above: COLOR OF URINE MAY A FFECT DIPSTICK RESULTS. Brain/Head without Contrasto n 08-29-2024 Brain/Head without Contrast Normal [facility] CBC W/Diff, Automatedon - Absolute Lymph 1.03 X10 3/uL Normal 0.83-4.51 [facility] Comment on above: Performed By: #### L 100.0100, L500.4050 ####[facility] [id number] [place], [address] Absolute Neut 9.1 X10 3/uL High 2.0-7.7 [facility] Comment on above: Performed By: #### L 100.0100, L500.4050 ####[facility] [address] [place], [address] Basophils/100 WBC (Bld) 0.4 % Normal 0-1 [facility] Comment on above: Performed By: #### L 100.0100, L500.4050 ####[facility] [address] [place], [address] Eosinophils/100 WBC (Bld) 2.9 % Normal 0-5 [facility] Comment on above: Performed By: #### L 100.0100, L500.4050 ####[facility] [address] [place], [address] Erythrocyte distribution width (RBC) [Ratio] 15.4 % High 11.6-14.6 [facility] Comment on above: Performed By: #### L 100.0100, L500.4050 ####[facility] [address] [place], [address] Hematocrit (Bld) [Volume fraction] 32.2 % Low 40-54 [facility] Comment on above: Performed By: #### L 100.0100, L500.4050 ####[facility] [address] [place], [address] Hemoglobin (Bld) [Mass/Vol] 11.2 g/dL Low 13.0-16.5 [facility] Comment on above: Performed By: #### L 100.0100, L500.4050 ####[facility] [address] [place], [address] IG% 1.000 High 0.0-0.9 [facility] Comment on above: Result Comment: IG% - Immature Granulocytes (promyelocytes, myelocytes andmetamyelocytes) > 1% indicates that a LEFT SHIFT is Present. Performed By: #### L 100.0100, L500.4050 ####[facility] [address] [place], [address] Lymphocytes/100 WBC (Bld) 8.7 % Low 19-41 [facility] Comment on above: Performed By: #### L 100.0100, L500.4050 ####[facility] [address] [place], [address] MCH (RBC) [Entitic mass] 29.0 pg Normal 27.0-32.0 [facility] Comment on above: Performed By: #### L 100.0100, L500.4050 ####[facility] [address] [place], [address] MCHC (RBC) [Mass/Vol] 34.8 g/dL Normal 32-36 [facility] Comment on above: Performed By: #### L 100.0100, L500.4050 ####[facility] [address] [place], [address] MCV (RBC) [Entitic vol] 83.4 fL Normal 80-94 [facility] Comment on above: Performed By: #### L 100.0100, L500.4050 ####[facility] [address] [place], [address] Monocytes/100 WBC (Bld) 10.4 % High 0-10 [facility] Comment on above: Performed By: #### L 100.0100, L500.4050 ####[facility] [address] [place], [address] Neutrophils/100 WBC (Bld) 76.6 % High 47-70 [facility] Comment on above: Performed By: #### L 100.0100, L500.4050 ####[facility] [address] [place], [address] Nucleated RBC (Bld) [#/Vol] 0 10*3/uL Normal 0-5 [facility] Comment on above: Performed By: #### L 100.0100, L500.4050 ####[facility] [address] [place], [address] Platelet mean volume (Bld) [Entitic vol] 12.5 fL High 6.2-12.0 [facility] Comment on above: Performed By: #### L 100.0100, L500.4050 ####[facility] [address] [place], [address] Platelets (Bld) [#/Vol] 87 10*3/uL Low 150-450 [facility] Comment on above: Performed By: #### L 100.0100, L500.4050 ####[facility] [address] [place], [address] RBC (Bld) [#/Vol] 3.86 10*6/uL Low 4.6-6.2 [facility] Comment on above: Performed By: #### L 100.0100, L500.4050 ####[facility] [address] [place], [address] RDW SD 46.8 fl High 35.1-43.9 [facility] Comment on above: Performed By: #### L 100.0100, L500.4050 ####[facility] [address] [place], [address] WBC (Bld) [#/Vol] 11.9 10*3/uL High 4.4-11.0 [facility] Comment on above: Performed By: #### L 100.0100, L500.4050 ####[facility] [address] [place], [address] Chest 1 View (Portable)on Chest 1 View (Portable) Normal [facility] Clarity (U)Ordered By: Juan Alberto Anderson on 08-29-2024 Urine clarity Clear Clear [facility] Color (U)Ordered By: Luis Carlos Anderson on 08-29-2024 Urine color determination Yellow Yellow [facility] Comprehensive Metabolic Prof ilon 08-29-2024 Albumin [Mass/Vol] 1.9 g/dL Low 3.2-5.0 [facility] Comment on above: Performed By: #### L 100.0100, L500.4050 ####[facility] [address] [place], [address] Albumin/Globulin [Mass ratio] 0.4 {ratio} Low 0.9-2.4 [facility] Comment on above: Performed By: #### L 100.0100, L500.4050 ####[facility] [address] [place], [address] ALK P 172 U/L High 45-117 [facility] Comment on above: Performed By: #### L 100.0100, L500.4050 ####[facility] [address] [place], [address] ALT [Catalytic activity/Vol] 26 U/L Normal 16-61 [facility] Comment on above: Performed By: #### L 100.0100, L500.4050 ####[facility] [address] [place], [address] AST [Catalytic activity/Vol] 32 U/L Normal 15-37 [facility] Comment on above: Performed By: #### L 100.0100, L500.4050 ####[facility] [address] [place], [address] Bilirubin [Mass/Vol] 1.40 mg/dL High 0.20-1.00 [facility] Comment on above: Result Comment: For patients on eltrombopag therapy, use of Dimension [place] TBIL is not recommended. Performed By: #### L 100.0100, L500.4050 ####[facility] [address] [place], [address] BUN/CRE 13.5 RATIO Normal 10-20 [facility] Comment on above: Performed By: #### L 100.0100, L500.4050 ####[facility] [address] [place], [address] CA,Total 8.5 mg/dL Normal 8.5-10.1 [facility] Comment on above: Performed By: #### L 100.0100, L500.4050 ####[facility] [address] [place], [address] Chloride [Moles/Vol] 104 mmol/L Normal 98-107 [facility] Comment on above: Performed By: #### L 100.0100, L500.4050 ####[facility] [address] [place], [address] CO2 [Moles/Vol] 18.0 mmol/L Low 21.0-32.0 [facility] Comment on above: Performed By: #### L 100.0100, L500.4050 ####[facility] [address] [place], [address] Creatinine [Mass/Vol] 5.63 mg/dL High 0.70-1.30 [facility] Comment on above: Result Comment: The validity of the calculated GFR GFRAA in patients over70 years has not been determined. Clinical correlation isessential. Performed By: #### L 100.0100, L500.4050 ####[facility] [address] [place], [address] EST GFR - AA 13 mL/min Low >60 [facility] Comment on above: Result Comment: Afri can [place] GFR Calc Performed By: #### L 100.0100, L500.4050 ####[facility] [address] [place], [address] GAP 12 Normal 5-15 [facility] Comment on above: Performed By: #### L 100.0100, L500.4050 ####[facility] [address] [place], [address] GFR/1.73 sq M.predicted among non-blacks MDRD (S/P/Bld) [Vol rate/Area] 11 mL/min/{1.73_m2} Low >60 [facility] Comment on above: Result Comment: Non- GFR Calc Performed By: #### L 100.0100, L500.4050 ####[facility] [address] [place], [address] Globulin (S) [Mass/Vol] 4.3 g/dL High 2.2-4.2 [facility] Comment on above: Performed By: #### L 100.0100, L500.4050 ####[facility] [address] [place], [address] Glucose [Mass/Vol] 257 mg/dL High 74-106 [facility] Comment on above: Result Comment: Gluc ose result greater than or equal to 200 mg/dLsuggests DIABETES MELLITUS per A.D.A. criteria. Performed By: #### L 100.0100, L500.4050 ####[facility] [address] [place], [address] Potassium [Moles/Vol] 3.9 mmol/L Normal 3.5-5.1 [facility] Comment on above: Performed By: #### L 100.0100, L500.4050 ####[facility] [address] [place], [address] Sodium [Moles/Vol] 134 mmol/L Low 136-145 [facility] Comment on above: Performed By: #### L 100.0100, L500.4050 ####[facility] [address] [place], [address] T PROT 6.2 g/dL Low 6.4-8.2 [facility] Comment on above: Performed By: #### L 100.0100, L500.4050 ####[facility] [address] [place], [address] Urea nitrogen [Mass/Vol] 76 mg/dL High 7-18 [facility] Comment on above: Performed By: #### L 100.0100, L500.4050 ####[facility] [address] [place], [address] Creatinine (U) [Mass/Vol]Ord ered By: Maria Guadalupe Shore on 08-29-2024 Urine creatinine measurement (mass/volume) 173.00 mg/dL NO RANGE EST. [facility] Emergency Department Summary on 08-29-2024 Emergency Department Summary Normal [facility] Epithelial cells.squamous LM Ql (Urine sed)Ordered By: Luis Carlos Anderson on 08-29-2024 Epithelial cells.squamous LM.HPF (Urine sed) [#/Area] 0 /[HPF] 0-5 [facility] Squamous epithelial cells detection in urine sediment by light microscopy 0 SEEN /hpf 0-5 [facility] Glucose Ql (U)Ordered By: Yaya Anderson on 08-29-2024 Glucose (U) [Mass/Vol] 50 mg/dL High Normal [facility] Urine glucose detection 50 mg/dl High Normal [facility] H AND P Exam - Hospitaliston 08-29-2024 H&P Exam - Hospitalist Normal [facility] International normalized rat io (INR) calculationOrdered By: Luis Carlos Anderson on 08-29-2024 INR Coag (Bld) [Relative time] 1.7 {INR} [facility] International normalized ratio (INR) calculation 1.7 [facility] Ketones Test strip Ql (U)Ord ered By: Luis Carlos Anderson on 08-29-2024 Ketones Ql (U) Negative Negative [facility] Leukocyte esterase Test stri p Ql (U)Ordered By: Luis Carlos Anderson on 08-29-2024 Urine leukocyte esterase detection by dipstick 500 /ul High Negative [facility] Lipaseon 08-29-2024 Lipase [Catalytic activity/Vol] 26 U/L Normal 13-75 [facility] Comment on above: Result Comment: Siddhartha bhat note:LIPASE revised reference range effective 22.New Lipase methodology. Expected to produce lower valuesthan the previous assay method.NEW Reference Range: 13 - 75 U/L Performed By: #### L 501.2450 ####[facility] [address] [place], [place], [address] Lipase measurementOrdered By : Luis Carlos Anderson on 08-29-2024 Lipase [Catalytic activity/Vol] 26 U/L 13-75 [facility] Comment on above: Please note:LIPASE r evised reference range effective 22. New Lipase methodology. Expected to produce lower values than the previous assay method. NEW Reference Range: 13 - 75 U/L Lipase measurement 26 U/L 13-75 [facility] Magnesiumon 08-29-2024 Magnesium [Mass/Vol] 2.7 mg/dL High 1.6-2.6 [facility] Comment on above: Order Comment: Comme nts: May add to ED labsComments: may add to ED labs Performed By: #### L 501.5200, L501.2300 ####[facility] [address] [place], [place], [address] Magnesium measurementOrdered By: Maria Guadalupe Shore on 08-29-2024 Magnesium [Mass/Vol] 2.7 mg/dL High 1.6-2.6 [facility] Magnesium measurement 2.7 mg/dL High 1.6-2.6 [facility] Microscopic analysis of urin e for red blood cells (RBC)Ordered By: Luis Carlos Anderson on 08-29-2024 Urine RBC 5-10 SEEN /hpf 0-5 [facility] Microscopic analysis of urine for red blood cells (RBC) 5-10 SEEN /hpf 0-5 [facility] Mucus LM Ql (Urine sed)Order ed By: Luis Carlos Anderson on 08-29-2024 Mucus Ql (Urine sed) 1+ /hpf [facility] Mucus detection in urine sediment by light microscopy 1+ /hpf [facility] Nitrite Test strip Ql (U)Ord ered By: Luis Carlos Anderson on 08-29-2024 Nitrite Ql (U) Negative Negative [facility] Partial Thromboplast Timeon 08-29-2024 aPTT Coag (Bld) [Time] 40.9 s High 24.1-36.2 [facility] Comment on above: Performed By: #### L 503.5510, L300.4310, L300.3900 ####[facility] [address] [place], [place], [id number] Phosphoruson 08-29-2024 Phosphate [Mass/Vol] 4.9 mg/dL Normal 2.5-4.9 [facility] Comment on above: Order Comment: Comme nts: May add to ED labsComments: may add to ED labs Performed By: #### L 501.5200, L501.2300 ####[facility] [address] [place], [place], [address] Phosphorus measurementOrdere d By: Maria Guadalupe Shore on 08-29-2024 Phosphorus Level 4.9 mg/dL 2.5-4.9 [facility] Phosphorus measurement 4.9 mg/dL 2.5-4.9 [facility] Protein Test strip Ql (U)Ord ered By: Luis Carlos Anderson on 08-29-2024 Protein Ql (U) 30 mg/dl High Negative [facility] Urine protein assay by test strip, semi-quantitative 30 mg/dl High Negative [facility] Prothrombin Time w/INRon INR Coag (PPP) [Relative time] 1.7 {INR} Normal [facility] Comment on above: Performed By: #### L 503.5510, L300.4310, L300.3900 ####[facility] [address] [place], [address] PT Coag (PPP) [Time] 20.0 s High 11.7-14.9 [facility] Comment on above: Performed By: #### L 503.5510, L300.4310, L300.3900 ####[facility] [address] [place], [address] Prothrombin timeOrdered By: Luis Carlos Anderson on 08-29-2024 PT Coag (PPP) [Time] 20.0 s High 11.7-14.9 [facility] Prothrombin time 20.0 SECONDS High 11.7-14.9 [facility] Sodium urOrdered By: Maria Guadalupe Shore on 08-29-2024 Sodium (U) [Moles/Vol] 30 mmol/L Normal Not Establ. [facility] Comment on above: Performed By: #### L 501.5500, L501.1200 ####[facility] [address] [place], [address] Sodium [Moles/Vol] 30 mmol/L Not Establ. [facility] Sodium ur 30 mmol/L Not Establ. [facility] Specific gravity (U) [Rel de nsity]Ordered By: Luis Carlos Anderson on 08-29-2024 Urine specific gravity measurement 1.015 1.002-1.030 [facility] Spine Cervical without Contr ason 08-29-2024 Spine Cervical without Contras Normal [facility] Spine Lumbar without Contras ton 08-29-2024 Spine Lumbar without Contrast Normal [facility] Spine Thoracic without Contr ason 08-29-2024 Spine Thoracic without Contras Normal [facility] Squamous epithelial cells de tection in urine sediment by light microscopyOrdered By: Luis Carlos Anderson on 08-29-2024 Epithelial cells.squamous LM Ql (Urine sed) 0 SEEN /hpf 0-5 [facility] Urinalysis, Completeon 08-29 BACTERIA RARE Normal None Seen [facility] Comment on above: Order Comment: PATTI CTOR TO SPECIFY Performed By: #### L 400.0001 ####[facility] [address] [place], [address] Mucus Ql (Urine sed) 1+ /hpf Normal [facility] Comment on above: Order Comment: PATTI CTOR TO SPECIFY Performed By: #### L 400.0001 ####[facility] [address] [place], [address] RBC 5-10 SEEN Normal [address] Comment on above: Order Comment: PATTI CTOR TO SPECIFY Performed By: #### L 400.0001 ####[facility] [address] [place], [address] WBC 10-25 SEEN Normal [address] [place] [address] Comment on above: Order Comment: PATTI CTOR TO SPECIFY Performed By: #### L 400.0001 ####[facility] [address] [place], [address] EPI,SQUAMOUS 0 SEEN Normal [address] [place] [address] Comment on above: Order Comment: PATTI CTOR TO SPECIFY Performed By: #### L 400.0001 ####[facility] [address] [place], [address] Urine blood detectionOrdered By: Luis Carlos Anderson on 08-29-2024 Urine Occult Blood 150 /ul High Negative [facility] Urine blood detection 150 /ul High Negative [facility] Urine clarityOrdered By: Joann Anderson on 08-29-2024 Clarity (U) Clear Clear [facility] Urine color determinationOrd ered By: Luis Carlos Anderson on 08-29-2024 Color (U) Yellow Yellow [facility] Urine creatinine measurement (mass/volume)Ordered By: Maria Guadalupe White on 08-29-2024 Creatinine (U) [Mass/Vol] 173.00 mg/dL NO RANGE EST. [facility] Urine cultureOrdered By: Joann Anderson on 08-29-2024 Bacteria identified Cx Nom (U) Culture exhibits no growth. [facility] Urine culture Culture exhibits no growth. [facility] Urine glucose detectionOrder ed By: Luis Carlos Anderson on 08-29-2024 Glucose Ql (U) 50 mg/dl High Normal [facility] Urine ketones detection by t est stripOrdered By: Luis Carlos Anderson on 08-29-2024 Urine ketones detection by test strip Negative Negative [facility] Urine leukocyte esterase det ection by dipstickOrdered By: Luis Carlos Anderson on 08-29-2024 Leukocyte esterase Test strip Ql (U) 500 /ul High Negative [facility] Urine pHOrdered By: Luis Carlos hammond on 08-29-2024 pH (U) 6.0 [pH] 5.0 - 8.0 [facility] Urine sediment bacteria coun t by microscopy (number/high power field)Ordered By: Luis Carlos Anderson on 08-29-2024 Bacteria LM.HPF (Urine sed) [#/Area] RARE /hpf None Seen [facility] Urine specific gravity measu rementOrdered By: Luis Carlos Anderson on 08-29-2024 Specific gravity (U) [Rel density] 1.015 1.002-1.030 [facility] Urine total bilirubin detect ion by test stripOrdered By: Luis Carlos Anderson on 08-29-2024 Urine total bilirubin detection by test strip 1 mg/dL High Normal [facility] Urine urobilinogen measureme ntOrdered By: Luis Carlos Anderson on 08-29-2024 Urobilinogen Ql (U) 1 mg/dl High Normal [facility] Urobilinogen Ql (U)Ordered B y: Luis Carlos Anderson on 08-29-2024 Urobilinogen (U) [Mass/Vol] 1 mg/dL High Normal [facility] White blood cell countOrdere d By: Luis Carlos Anderson on 08-29-2024 Urine WBC 10-25 SEEN /hpf 0-5 [facility] White blood cell count 10-25 SEEN /hpf 0-5 [facility] White blood cell count 10-25 SEEN /hpf 0-5 [facility] aPTT Coag (PPP) [Time]Ordere d By: Luis Carlos Anderson on 08-29-2024 aPTT Coag (Bld) [Time] 40.9 s High 24.1-36.2 [facility] Activated partial thromboplastin time (aPTT) in platelet poor plasma by coagulation a 40.9 Seconds High 24.1-36.2 [facility] pH (U)Ordered By: Ashu on 08-29-2024 Urine pH 6.0 5.0 - 8.0 [facility] Emergency Department Summary on 08-21-2024 Emergency Department Summary Normal [facility] Lumbar Spine 2 or 3 Viewson 08-21-2024 Lumbar Spine 2 or 3 Views Normal [facility] Vital Signs Date Time Vital Sign Value Performing Clinician Facility 01-05-2025 16:00-0400 Body temperature 98.1 [degF] No Primary Care Physician [facility] 01-05-2025 16:00-0400 Diastolic blood pressure 60 mm[Hg] No Primary Care Physician [facility] 01-05-2025 16:00-0400 Heart rate 73 /min No Primary Care Physician [facility] 01-05-2025 16:00-0400 Respiratory rate 16 /min No Primary Care Physician [facility] 01-05-2025 16:00-0400 SaO2% (BldA) [Mass fraction] 94 % No Primary Care Physician [facility] 01-05-2025 16:00-0400 Systolic blood pressure 103 mm[Hg] No Primary Care Physician [facility] 01-05-2025 04:44-0400 Body mass index (BMI) [Ratio] 29.9 kg/m2 No Primary Care Physician [facility] 01-05-2025 04:44-0400 Body weight 92.2 kg No Primary Care Physician [facility] 01-02-2025 10:11-0400 Body height 175.26 cm No Primary Care Physician [facility] 01-02-2025 06:34-0400 Body temperature 97.8 [degF] No Primary Care Physician [facility] 01-02-2025 06:34-0400 Diastolic blood pressure 73 mm[Hg] No Primary Care Physician [facility] 01-02-2025 06:34-0400 Heart rate 68 /min No Primary Care Physician [facility] 01-02-2025 06:34-0400 Respiratory rate 20 /min No Primary Care Physician [facility] 01-02-2025 06:34-0400 SaO2% (BldA) [Mass fraction] 100 % No Primary Care Physician [facility] 01-02-2025 06:34-0400 Systolic blood pressure 105 mm[Hg] No Primary Care Physician [facility] 01-02-2025 02:59-0400 Body height 175.26 cm No Primary Care Physician [facility] 01-02-2025 02:59-0400 Body mass index (BMI) [Ratio] 27.5 kg/m2 No Primary Care Physician [facility] 01-02-2025 02:59-0400 Body weight 84.5 kg No Primary Care Physician [facility] 12-30-2024 05:24-0400 Body temperature 97.9 [degF] No Primary Care Physician [facility] 12-30-2024 05:24-0400 Diastolic blood pressure 52 mm[Hg] No Primary Care Physician [facility] 12-30-2024 05:24-0400 Heart rate 71 /min No Primary Care Physician [facility] 12-30-2024 05:24-0400 Respiratory rate 18 /min No Primary Care Physician [facility] 12-30-2024 05:24-0400 SaO2% (BldA) [Mass fraction] 93 % No Primary Care Physician [facility] 12-30-2024 05:24-0400 Systolic blood pressure 93 mm[Hg] No Primary Care Physician [facility] 12-30-2024 01:07-0400 Body height 175.26 cm No Primary Care Physician [facility] 12-30-2024 01:07-0400 Body mass index (BMI) [Ratio] 28.4 kg/m2 No Primary Care Physician [facility] 12-30-2024 01:07-0400 Body weight 87.3 kg No Primary Care Physician [facility] 12-26-2024 14:27-0400 Body temperature 97 [degF] No Primary Care Physician [facility] 12-26-2024 14:27-0400 Diastolic blood pressure 58 mm[Hg] No Primary Care Physician [facility] 12-26-2024 14:27-0400 Heart rate 64 /min No Primary Care Physician [facility] 12-26-2024 14:27-0400 Respiratory rate 16 /min No Primary Care Physician [facility] 12-26-2024 14:27-0400 SaO2% (BldA) [Mass fraction] 97 % No Primary Care Physician [facility] 12-26-2024 14:27-0400 Systolic blood pressure 90 mm[Hg] No Primary Care Physician [facility] 12-26-2024 10:00-0400 Body height 175.26 cm No Primary Care Physician [facility] 12-26-2024 10:00-0400 Body mass index (BMI) [Ratio] 29.7 kg/m2 No Primary Care Physician [facility] 12-26-2024 10:00-0400 Body weight 91.4 kg No Primary Care Physician [facility] 12-02-2024 12:13-0400 Body temperature 98.7 [degF] No Primary Care Physician [facility] 12-02-2024 12:13-0400 Diastolic blood pressure 68 mm[Hg] No Primary Care Physician [facility] 12-02-2024 12:13-0400 Heart rate 86 /min No Primary Care Physician [facility] 12-02-2024 12:13-0400 Respiratory rate 18 /min No Primary Care Physician [facility] 12-02-2024 12:13-0400 SaO2% (BldA) [Mass fraction] 97 % No Primary Care Physician [facility] 12-02-2024 12:13-0400 Systolic blood pressure 117 mm[Hg] No Primary Care Physician [facility] 12-02-2024 02:57-0400 Body mass index (BMI) [Ratio] 33 kg/m2 No Primary Care Physician [facility] 12-02-2024 02:57-0400 Body weight 101.6 kg No Primary Care Physician [facility] 11-29-2024 09:53-0400 Body height 175.26 cm No Primary Care Physician [facility] 11-25-2024 18:31-0400 Body temperature 98.2 [degF] No Primary Care Physician [facility] 11-25-2024 18:31-0400 Diastolic blood pressure 80 mm[Hg] No Primary Care Physician [facility] 11-25-2024 18:31-0400 Heart rate 97 /min No Primary Care Physician [facility] 11-25-2024 18:31-0400 Respiratory rate 18 /min No Primary Care Physician [facility] 11-25-2024 18:31-0400 SaO2% (BldA) [Mass fraction] 98 % No Primary Care Physician [facility] 11-25-2024 18:31-0400 Systolic blood pressure 122 mm[Hg] No Primary Care Physician [facility] 11-24-2024 15:17-0400 Body weight 102.7 kg No Primary Care Physician [facility] 11-21-2024 05:32-0400 Body mass index (BMI) [Ratio] 33.4 kg/m2 No Primary Care Physician [facility] 11-21-2024 05:00-0400 Heart rate 77 /min No Primary Care Physician [facility] 11-21-2024 04:51-0400 Body temperature 98.2 [degF] No Primary Care Physician [facility] 11-21-2024 04:51-0400 Diastolic blood pressure 57 mm[Hg] No Primary Care Physician [facility] 11-21-2024 04:51-0400 Respiratory rate 16 /min No Primary Care Physician [facility] 11-21-2024 04:51-0400 SaO2% (BldA) [Mass fraction] 97 % No Primary Care Physician [facility] 11-21-2024 04:51-0400 Systolic blood pressure 127 mm[Hg] No Primary Care Physician [facility] 11-21-2024 01:32-0400 Body height 175.26 cm No Primary Care Physician [facility] 11-21-2024 01:32-0400 Body mass index (BMI) [Ratio] 34.3 kg/m2 No Primary Care Physician [facility] 11-21-2024 01:32-0400 Body weight 105.4 kg No Primary Care Physician [facility] 11-12-2024 18:03-0400 SaO2% (BldA) [Mass fraction] 99 % KATHIE LEMOS [facility] Comment on above: Order Comment: Specimen Type: ARTERIAL B LOOD SPECIMENOrdering Facility: [facility] Address: [address] [id number] Performed By: #### A LLBG ####[facility] LABCLIA [id number] [place] [address] [place] 11-10-2024 23:40-0400 Body temperature 97.8 [degF] No Primary Care Physician [facility] 11-10-2024 23:40-0400 Diastolic blood pressure 70 mm[Hg] No Primary Care Physician [facility] 11-10-2024 23:40-0400 Heart rate 110 /min No Primary Care Physician [facility] 11-10-2024 23:40-0400 Respiratory rate 18 /min No Primary Care Physician [facility] 11-10-2024 23:40-0400 SaO2% (BldA) [Mass fraction] 97 % No Primary Care Physician [facility] 11-10-2024 23:40-0400 Systolic blood pressure 116 mm[Hg] No Primary Care Physician [facility] 11-10-2024 04:54-0400 Body mass index (BMI) [Ratio] 36.7 kg/m2 No Primary Care Physician [facility] 11-10-2024 04:54-0400 Body weight 112.8 kg No Primary Care Physician [facility] 11-09-2024 14:30-0400 Body height 175.26 cm No Primary Care Physician [facility] 10-29-2024 01:23-0400 Body temperature 97.4 [degF] No Primary Care Physician [facility] 10-29-2024 01:23-0400 Diastolic blood pressure 54 mm[Hg] No Primary Care Physician [facility] 10-29-2024 01:23-0400 Heart rate 77 /min No Primary Care Physician [facility] 10-29-2024 01:23-0400 Respiratory rate 14 /min No Primary Care Physician [facility] 10-29-2024 01:23-0400 SaO2% (BldA) [Mass fraction] 97 % No Primary Care Physician [facility] 10-29-2024 01:23-0400 Systolic blood pressure 97 mm[Hg] No Primary Care Physician [facility] 10-28-2024 21:43-0400 Body mass index (BMI) [Ratio] 30.4 kg/m2 No Primary Care Physician [facility] 10-28-2024 21:43-0400 Body weight 93.1 kg No Primary Care Physician [facility] 10-28-2024 17:13-0400 Body height 175.01 cm No Primary Care Physician [facility] 10-04-2024 21:45-0500 Diastolic blood pressure 89 mm[Hg] Maurice wen MD Work Phone: [facility] 10-04-2024 21:45-0500 Heart rate 94 /min Maurice Fitch MD Work Phone: [phone] [place] [address] 10-04-2024 21:45-0500 Respiratory rate 18 /min Maurice Fitch MD Work Phone: [facility] 10-04-2024 21:45-0500 SaO2% (BldA) [Mass fraction] 100 % Maurice Fitch MD Work Phone: [phone] [place] [address] 10-04-2024 21:45-0500 Systolic blood pressure 152 mm[Hg] Maurice parada MD Work Phone: [facility] 10-04-2024 12:03-0500 Body temperature 97.59 [degF] Maurice Fitch MD Work Phone: [facility] 10-04-2024 12:03-0500 Body weight 117.48 kg Maurice Fitch MD Work Phone: [facility] 09-29-2024 10:21-0500 Body temperature 97.3 [degF] No Primary Care Physician [facility] 09-29-2024 10:21-0500 Diastolic blood pressure 74 mm[Hg] No Primary Care Physician [facility] 09-29-2024 10:21-0500 Heart rate 81 /min No Primary Care Physician [facility] 09-29-2024 10:21-0500 Respiratory rate 18 /min No Primary Care Physician [facility] 09-29-2024 10:21-0500 Systolic blood pressure 138 mm[Hg] No Primary Care Physician [facility] 09-15-2024 03:49-0500 Body temperature 97.8 [degF] No Primary Care Physician [facility] 09-15-2024 03:49-0500 Diastolic blood pressure 70 mm[Hg] No Primary Care Physician [facility] 09-15-2024 03:49-0500 Heart rate 80 /min No Primary Care Physician [facility] 09-15-2024 03:49-0500 Respiratory rate 17 /min No Primary Care Physician [facility] 09-15-2024 03:49-0500 SaO2% (BldA) [Mass fraction] 96 % No Primary Care Physician [facility] 09-15-2024 03:49-0500 Systolic blood pressure 142 mm[Hg] No Primary Care Physician [facility] 09-14-2024 04:07-0500 Body mass index (BMI) [Ratio] 36.7 kg/m2 No Primary Care Physician [facility] 09-14-2024 04:07-0500 Body weight 112.8 kg No Primary Care Physician [facility] 09-10-2024 14:03-0500 Body height 175.26 cm No Primary Care Physician [facility] 09-07-2024 01:24-0500 Inhaled oxygen concentration 21 % No Primary Care Physician [facility] 09-06-2024 05:00-0500 Inhaled oxygen flow rate 8 L/min No Primary Care Physician [facility] 09-02-2024 15:36-0500 Body weight 104 kg No Primary Care Physician [facility] 09-02-2024 14:54-0500 Body temperature 98.1 [degF] No Primary Care Physician [facility] 09-02-2024 14:54-0500 Diastolic blood pressure 62 mm[Hg] No Primary Care Physician [facility] 09-02-2024 14:54-0500 Heart rate 60 /min No Primary Care Physician [facility] 09-02-2024 14:54-0500 Respiratory rate 18 /min No Primary Care Physician [facility] 09-02-2024 14:54-0500 SaO2% (BldA) [Mass fraction] 99 % No Primary Care Physician [facility] 09-02-2024 14:54-0500 Systolic blood pressure 118 mm[Hg] No Primary Care Physician [facility] 09-02-2024 03:57-0500 Body mass index (BMI) [Ratio] 33.8 kg/m2 No Primary Care Physician [facility] 08-21-2024 16:33-0500 Body temperature 98.5 [degF] No Primary Care Physician [facility] 08-21-2024 16:33-0500 Diastolic blood pressure 78 mm[Hg] No Primary Care Physician [facility] 08-21-2024 16:33-0500 Heart rate 61 /min No Primary Care Physician [facility] 08-21-2024 16:33-0500 Respiratory rate 12 /min No Primary Care Physician [facility] 08-21-2024 16:33-0500 SaO2% (BldA) [Mass fraction] 97 % No Primary Care Physician [facility] 08-21-2024 16:33-0500 Systolic blood pressure 114 mm[Hg] No Primary Care Physician [facility] 08-21-2024 13:52-0500 Body mass index (BMI) [Ratio] 33 kg/m2 No Primary Care Physician [facility] 08-21-2024 13:52-0500 Body weight 101.5 kg No Primary Care Physician [facility] Encounters Encounter Date Encounter Type Care Provider [...] management of inpatient No Primary Care Physician [facility] Work Phone: Start: 01-02-2025 End: 01-05-2025 Dr. Buster Fuchs MD -Progressive Care Unit Work Phone: Start: 12-30-2024 End: 12-30-2024 No Primary Care Physician -Emergency Department Work Phone: Start: 12-30-2024 End: 12-30-2024 Emergency department patient visit No Primary Care Physician [facility] Work Phone: Start: 12-26-2024 End: 12-26-2024 No Primary Care Physician -Emergency Department Work Phone: Start: 12-26-2024 End: 12-26-2024 Emergency department patient visit No Primary Care Physician [facility] Work Phone: Start: 12-15-2024 End: 12-15-2024 ambulatory No Primary Care Physician [facility] Work Phone: Start: 12-15-2024 End: 12-15-2024 Josy Elias WATCHMAKING TEACHER-C -Ultrasound [facility] Work Phone: Start: 12-15-2024 End: 12-15-2024 ambulatory Josy Elias Facility:[facility] Start: 12-07-2024 End: 12-10-2024 ambulatory Eva Pichardo MD Work Phone: Urology Start: 12-07-2024 End: 12-07-2024 Josy Elias NP-C -LaboratoryAmrita Start: 12-07-2024 End: 12-07-2024 ambulatory [facility] Facility:[facility] Start: 12-02-2024 Dr. Hill Acuña MD - [facility] Work Phone: Start: 12-01-2024 Dr. Hill Acuña MD - [facility] Work Phone: Start: 11-30-2024 Dr. Hill Acuña MD - [facility] Work Phone: Start: 11-29-2024 Dr. Hill Acuña MD - [facility] Work Phone: Start: 11-28-2024 ambulatory Hill Acuña Facility:[facility] [place] Start: 11-28-2024 End: 12-02-2024 Evaluation and management of inpatient Hill Acuña Facility:[facility] Start: 11-28-2024 End: 12-02-2024 Dr. Hill Acuña MD -Progressive Care Unit Work Phone: Start: 11-25-2024 Dr. Anurag Irene MD -[facility] Inpatient [facility] Work Phone: Start: 11-24-2024 Dr. Anurag Irene MD -[facility] In[facility] Work Phone: Start: 11-23-2024 ambulatory [facility] Facility: [facility] Start: 11-23-2024 End: 11-25-2024 Evaluation and management of inpatient [facility] Facility:[facility] Start: 11-23-2024 End: 11-25-2024 Dr. Anurag Irene MD -Medical Surgical 3 Work Phone: Start: 11-22-2024 Dr. Anurag Irene MD -[facility] Inpatient [facility]icians Work Phone: Start: 11-21-2024 ambulatory Jae Hughes ility:[facility] Start: 11-21-2024 observation encounter No Prima ry Care Physician [facility] Work Phone: Start: 11-21-2024 Dr. Jae Ash DO -Medical Surgical 3 Work Phone: Start: 11-18-2024 Patient encounter status Jeremi Abreu RN Work Phone: [facility] Work Phone: Start: 11-18-2024 End: 11-18-2024 Telephone encounter Jeremi Abreu RN Work Phone: [facility] Comment on above: Outcome Liver Transp lant Selection Committee Start: 11-15-2024 End: 11-15-2024 Evaluation and management of inpatient Izabela Estuardo Candice DDS Work Phone: Dentistry Comment on above: Liver transplant can didate (Primary Dx); Pre-operative clearance Start: 11-15-2024 End: 11-15-2024 Preoperative state Izabela Harvey DDS Work Phone: [facility] Start: 11-15-2024 End: 11-15-2024 Social Work Marah Arauz TUBING MACHINE TENDER Work Phone: [facility] Start: 11-12-2024 End: 11-12-2024 Patient encounter status [facility] Start: 11-12-2024 End: 11-12-2024 Orders Only Liver Txp Coordinator Work Phone: Transplant Center Comment on above: 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 Kathie Lemos MD [...] Physicians Work Phone: Start: 11-01-2024 Niranjan Li [facility] Start: 10-31-2024 Dr. Buster Fuchs MD -[place] [facility] Work Phone: Start: 10-30-2024 Niranjan Li [facility] Start: 10-30-2024 Dr. Buster Fuchs MD -[place] [facility] Work Phone: Start: 10-29-2024 Dr. Bola Meraz DO -[facility] -[facility] Start: 10-29-2024 ambulatory John Paul Zelalempatrick Campbell ity:[facility] Start: 10-29-2024 End: 11-11-2024 Evaluation and management of inpatient Dr. Hill Caro DO -Intensive Care Unit Work Phone: Start: 10-29-2024 End: 11-11-2024 Dr. Kathie Lemos MD -Progressive Care Unit Work Phone: Start: 10-19-2024 ambulatory No Primary Car e Physician Facility:[facility] Start: 10-04-2024 End: 10-04-2024 Emergency department patient visit MAURICE FITCH [facility] Emergency Medicine Comment on above: Other ascites (Prima ry Dx); Abdominal pain, generalized; Other cirrhosis of liver; Peripheral edema; Coagulopathy (Multi); Hyperbilirubinemia; Cirrhosis of liver with ascites, unspecified hepatic cirrhosis type (Multi) Start: 09-29-2024 ambulatory No Primary Car e Physician Facility:[facility] Start: 09-29-2024 Non-patient / Non-visit Jasmine nunez WATCHMAKING TEACHER-C -[facility] Start: 09-29-2024 Jasmine Morocho WATCHMAKING TEACHER-C - [facility] Start: 09-29-2024 End: 09-29-2024 ambulatory No Primary Care Physician [facility] Work Phone: Start: 09-29-2024 End: 09-29-2024 Patient encounter procedure No Primary Care Physician -Ultrasound, [facility] Work Phone: Start: 09-29-2024 End: 09-29-2024 No Primary Care Physician -Ultrasound, [facility] Work Phone: Start: 09-29-2024 End: 09-29-2024 ambulatory No Primary Care Physician Facility:[facility] Start: 09-14-2024 Non-patient / Non-visit Dr. Boone James [facility] Inpatient Physicians Work Phone: Start: 09-14-2024 Dr. Boone Izquierdo [facility] Inpatient Physicians Work Phone: Start: 09-13-2024 Non-patient / Non-visit Dr. Boone James [facility] Inpatient Physicians Work Phone: Start: 09-13-2024 Dr. Boone Izquierdo [facility] Inpatient Physicians Work Phone: Start: 09-12-2024 Non-patient [...] 09-08-2024 Non-patient / Non-visit Dr. Anurag Irene [facility] Inpatient Physicians Work Phone: Start: 09-08-2024 Dr. Anurag Murray [facility] Inpatient Physicians Work Phone: Start: 09-07-2024 Non-patient / Non-visit Dr. Anurag Irene MD [facility] Inpatient Physicians Work Phone: Start: 09-07-2024 Dr. Anurag Irene MD -[facility] Work Phone: Start: 09-06-2024 Non-patient / Non-visit Dr. Anurag Irene MD [facility] Inpatient [facility]icians Work Phone: Start: 09-06-2024 Dr. Anurag Irene MD [facility] Work Phone: Start: 09-05-2024 ambulatory [place] de Kyle Facil ty:[facility] Start: 09-05-2024 End: 09-15-2024 Evaluation and management of inpatient Dr. Boone Izquierdo -Progressive Care Unit Work Phone: Start: 09-05-2024 End: 09-15-2024 [facility]: Start: 09-02-2024 Non-patient / Non-visit Dr. Lissette Carlin [facility] Inpatient Physicians Work Phone: Start: 09-02-2024 Dr. Rick gutierrez [facility] Inpatient [facility] Work Phone: Start: 09-01-2024 Non-patient / Non-visit Niranjan Frie nd DO -[facility] Start: 09-01-2024 Niranjan Friend DO -[facility] Start: 09-01-2024 Non-patient / Non-visit Dr. Lissette Carlin [facility] Work Phone: Start: 09-01-2024 Dr. Rick gutierrez [facility] Work Phone: Start: 08-31-2024 Non-patient / Non-visit Niranjan Frie nd DO -[facility] Start: 08-31-2024 Niranjan Friend DO -[facility] Start: 08-31-2024 Non-patient / Non-visit Dr. Lissette Carlin [facility] Work Phone: Start: 08-31-2024 Dr. Rick gutierrez [facility] Work Phone: Start: 08-31-2024 Non-patient / Non-visit Dr. Bola Patiño own DO -[facility] Start: 08-31-2024 Dr. Bola Meraz DO -[facility] Start: 08-30-2024 Non-patient / Non-visit Niranjanparker Coles nd DO -[facility] Start: 08-30-2024 Niranjan Friend DO -[facility] Start: 08-30-2024 Non-patient / Non-visit Dr. Lissette Carlin [facility] In[facility] Work Phone: Start: 08-30-2024 Dr. Rick gutierrez [facility] Work Phone: Start: 08-30-2024 Non-patient [...] Physician Start: 11-21-2024 Assay of lactate No [facility] Care Physician Start: 11-21-2024 Urine microscopy: red cells No Primary Care Physician Start: 11-21-2024 Urnls dip stick/tabl et reagent auto microscopy No Primary Care Physician Start: 11-21-2024 Plain chest X-ray No Pr ary Care Physician Start: 11-18-2024 Antibody screen KATHIE P IERCE Comment on above: Order Comment: Speci men Type: BLOOD SPECIMENOrdering Facility: [facility] Address: [address] [place] [address] Performed By: #### T SCR ####CC MAIN BLOOD BANKCLIA [id number] [place] [address] [place] Start: 11-16-2024 End: 11-16-2024 Colonoscopy Jeremi Abreu RN Work Phone: Start: 11-15-2024 Antibody screen KATHIE P IERCE Comment on above: Order Comment: Speci men Type: BLOOD SPECIMENOrdering Facility: [facility] Address: [address] [place] [address] Performed By: #### T SCR ####CC MAIN BLOOD BANKCLIA [id number] [address] Start: 11-13-2024 Lipid 1996 panel - S sandie or Plasma Marah Arauz TUBING MACHINE TENDER Work Phone: Start: 11-12-2024 Antibody screen KATHIE P IERCE Comment on above: Order Comment: Speci men Type: BLOOD SPECIMENOrdering Facility: [facility] Address: [address] [place] [address] Performed By: #### T SCR ####CC MAIN BLOOD BANKCLIA [id number] [address] Start: 11-10-2024 Urine microscopy: red cells [...] Physician Start: 11-09-2024 Assay of lactate No [facility] Care Physician Start: 11-08-2024 Serum [...] Physician Start: 09-05-2024 Assay of lactate No [facility] Care Physician Start: 09-05-2024 Folic [...] DTaP,Tdap,Td Vaccine (2 - Td or Tdap) [facility] Start: 11-17-2029 Prostate specific antigen measurement Prostate Cancer Screening Discussion [facility] Start: 11-13-2029 Lipid panel Lipid Screening [facility] Start: 11-19-2027 Diabetes Screening Diabetes Screening [facility] Start: 11-17-2027 Diabetes Screening Diabetes Screening [facility] Start: 11-15-2027 Diabetes Screening Diabetes Screening [facility] Start: 11-13-2027 Diabetes Screening Diabetes Screening [facility] Start: 11-18-2025 Creatinine measurement Serum Creatinine [facility] Start: 11-16-2025 Creatinine measurement Serum Creatinine [facility] Start: 11-16-2025 Screening for malignant neoplasm of colon [facility] Start: 11-15-2025 Creatinine measurement Serum Creatinine [facility] Start: 11-12-2025 Creatinine measurement Serum Creatinine [facility] Start: 05-16-2025 Hepatitis A Vaccine (2 of 2 - Risk 2-dose series) Hepatitis A Vaccine (2 of 2 - Risk 2-dose series) [facility] Start: 03-02-2025 End: 03-02-2025 Patient encounter procedure 03/02/2025 2:20 PM EDT Office Visit Family Medicine [facility] [address] [place] [address] Alex Alexandre MD [address] [place] [id number] Hospital discharge, diabetes mx, need for repeat vaccines, and consideration of CT chest [facility] Comment on above: Hospital discharge, diabetes mx, need fo r repeat vaccines, and consideration of CT chest Start: 02-02-2025 End: 02-02-2025 Patient encounter procedure 02/02/2025 9:20 AM EDT Office Visit Internal Medicine [facility] [place] [address] Ray Vega MD [address] [place] [address] est care Internal Medicine [place] Comment on above: est care Start: 01-05-2025 Patient discharge [facility] Start: 01-04-2025 [facility] Start: 01-03-2025 End: 01-03-2025 [facility] Start: 01-03-2025 End: 01-03-2025 Care regimes management [facility] Start: 01-03-2025 Notification of physician [place] Start: 01-03-2025 [facility] Start: 01-02-2025 Application of intermittent pneumatic compression device [facility] Start: 01-02-2025 Ambulation without limitation [facility] Start: 01-02-2025 Assessment of risk of venous thromboembolism [facility] Start: 01-02-2025 Care regimes management [facility] Start: 01-02-2025 Insertion of catheter into peripheral vein [facility] Start: 01-02-2025 Measuring intake and output [facility] Start: 01-02-2025 Notification of physician [place] Start: 01-02-2025 Providing care according to standard [facility] Start: 01-02-2025 Referral to occupational therapist [facility] Start: 01-02-2025 Referral to service [facility] Start: 01-02-2025 End: 01-02-2025 [facility] Start: 01-02-2025 Admission procedure [facility] Start: 01-02-2025 Verification routine [facility] Start: 01-02-2025 Hospital admission, emergency, from emergency room, medical nature [facility] Start: 01-02-2025 End: 01-02-2025 [facility] Start: 01-02-2025 Consultation [facility] Start: 01-02-2025 Patient referral to dietitian [facility] Start: 12-30-2024 [facility] Start: 12-30-2024 End: 12-30-2024 [facility] Start: 12-29-2024 End: 12-29-2024 Patient encounter procedure Endocrinology Comment on above: Diabetes maangement Diabetes maangement/ LVM OF [facility]ONER APPOINTMENT 11/21 Start: 12-26-2024 [facility] Start: 12-26-2024 End: 12-26-2024 [facility] Start: 12-23-2024 End: 12-23-2024 Patient encounter procedure 12/23/2024 9:45 AM EDT Office Visit Vascular Medicine [address] [place] [address] Pamella Frances, FILTER BED PLACER.AUTOMATIC DRY STARCH OPERATOR [address] [place] [address] HOSPITAL FOLLOW UP Vascular Medicine Comment on above: HOSPITAL FOLLOW UP Start: 12-12-2024 Hepatitis B Vaccine (2 of 2 - CpG 2-dose series) Hepatitis B Vaccine (2 of 2 - CpG 2-dose series) [facility] Start: 12-07-2024 End: 12-07-2024 Patient encounter procedure 12/07/2024 3:45 PM EDT Office Visit Urology [address] [address] Eva Pichardo MD [address] [place] [address] L ureteral stent, s/p staghorn calculi Urology Comment on above: L ureteral stent, s/p staghorn calculi Start: 12-07-2024 End: 12-07-2024 Patient encounter procedure 12/07/2024 11:20 AM EDT Office Visit [facility] [address] [place] [address] Ksenia Hoyos, FILTER BED PLACER.AUTOMATIC DRY STARCH OPERATOR [address] [place] [address] Hospital discharge, diabetes mx, need for repeat vaccines, and consideration of CT chest [facility] Comment on above: Hospital discharge, diabetes mx, need fo r repeat vaccines, and consideration of CT chest Start: 12-02-2024 Patient discharge [facility] Start: 12-01-2024 Consultation [facility] Start: 11-29-2024 [facility] Start: 11-28-2024 Enteric precautions [facility] Start: 11-28-2024 Application of intermittent pneumatic compression device [facility] Start: 11-28-2024 Following clinical pathway protocol [facility] Start: 11-28-2024 Assessment of risk of venous thromboembolism [facility] Start: 11-28-2024 Care regimes management [facility] Start: 11-28-2024 Insertion of catheter into peripheral vein [facility] Start: 11-28-2024 Measuring intake and output [facility] Start: 11-28-2024 Notification of physician [place] Start: 11-28-2024 Providing care according to standard [facility] Start: 11-28-2024 Provision of activity privileges [facility] Start: 11-28-2024 Referral to occupational therapist [facility] Start: 11-28-2024 Referral to service [facility] Start: 11-28-2024 End: 11-28-2024 [facility] Start: 11-28-2024 Admission procedure [facility] Start: 11-28-2024 Inhalation therapy procedure [facility] Start: 11-28-2024 Patient referral to dietitian [facility] Start: 11-25-2024 Patient discharge [facility] Start: 11-24-2024 Administration of blood product [facility] Start: 11-23-2024 Admission procedure [facility] Start: 11-22-2024 [facility] Start: 11-21-2024 Care regimes management [facility] Start: 11-21-2024 Notification of physician [place] Start: 11-21-2024 Following clinical pathway protocol [facility] Start: 11-21-2024 Ambulation without limitation [facility] Start: 11-21-2024 Assessment of risk of venous thromboembolism [facility] Start: 11-21-2024 Insertion of catheter into peripheral vein [facility] Start: 11-21-2024 Measuring intake and output [facility] Start: 11-21-2024 Providing care according to standard [facility] Start: 11-21-2024 Referral to occupational therapist [facility] Start: 11-21-2024 Referral to service [facility] Start: 11-21-2024 End: 11-21-2024 [facility] Start: 11-21-2024 Verification routine [facility] Start: 11-21-2024 Admission procedure [facility] Start: 11-21-2024 Hospital admission, emergency, from emergency room, medical nature [facility] Start: 11-21-2024 End: 11-21-2024 [facility] Start: 11-21-2024 Consultation [facility] Start: 11-18-2024 End: 11-18-2024 Patient encounter procedure 11/18/2024 3:30 PM EDT Office Visit Cardiology [address] [place] [address] [id number] Liver Tx Evaluation; CONTACT PRECAUTIONS - C-Diff; last of the day Cardiology Comment on above: G; Liver Tx Evaluation; CONTACT PRECAUTIONS - C-Diff; last of the day Start: 11-17-2024 End: 11-17-2024 Patient encounter procedure Pulmonary Medicine Comment on above: C-diff precuations/RA-2L/Reg WC Start: 11-15-2024 End: 11-15-2024 Patient encounter procedure 11/15/2024 1:15 PM EDT Office Visit Dentistry [address] [address] Izabela Harvey, DDS [address] [place] [address] BEDSIDE - TRANSPLANT [facility] - [id number] - Consult Placed 11/12/24 Dentistry Comment on above: BEDSIDE - TRANSPLANT [place] - G081-25 [id number] [phone] - Consult Placed 11/12/24 Start: 11-10-2024 Patient discharge [facility] Start: 11-09-2024 Consultation [facility] Start: 11-09-2024 Referral to gastroenterology service [facility] Start: 11-09-2024 Glucose measurement, body fluid [facility] Start: 11-08-2024 Urinary bladder residual urine study [facility] Start: 11-08-2024 [facility] Start: 11-05-2024 Removal of urinary catheter [facility] Start: 11-04-2024 [facility] Start: 10-31-2024 [facility] Start: 10-30-2024 Attention to flatus tube [facility] Start: 10-30-2024 Referral to gastroenterology service [facility] Start: 10-29-2024 Insertion of nasogastric tube [facility] Start: 10-29-2024 Bacteria identified in Blood by Culture Blood Culture [facility] Start: 10-29-2024 Referral to service [facility] Start: 10-29-2024 Application of intermittent pneumatic compression device [facility] Start: 10-29-2024 Following clinical pathway protocol [facility] Start: 10-29-2024 Cardiac monitoring [facility] Start: 10-29-2024 Catheterization of vein [facility] Start: 10-29-2024 Enteric precautions [facility] Start: 10-29-2024 Notification of physician [place] Start: 10-29-2024 Vital signs measurements [facility] Start: 10-29-2024 [facility] Start: 10-29-2024 End: 10-29-2024 Consultation [facility] Start: 10-29-2024 Clostridioides difficile DNA [Presence] in Unspecified specimen by ANANTH with probe detection [facility] Start: 10-29-2024 Complete ultrasound of kidneys and bladder Kidney and Bladder [facility] Start: 10-29-2024 Lactoferrin [Presence] in Stool by Immunoassay [facility] Start: 10-29-2024 Nucleic acid assay [facility] Start: 10-29-2024 Admission procedure [facility] Start: 10-29-2024 End: 10-29-2024 Hospital admission, emergency, from emergency room, medical nature [facility] Start: 10-29-2024 End: 10-29-2024 [facility] Start: 10-29-2024 Patient referral to dietitian [facility] Start: 10-28-2024 [facility] Start: 10-28-2024 Bacteria identified in Urine by Culture Urine Culture [facility] Start: 09-14-2024 Patient discharge [facility] Start: 09-06-2024 Referral to service [facility] Start: 09-06-2024 Referral to occupational therapist [facility] Start: 09-06-2024 Referral to client coordinator [facility] Start: 09-06-2024 Consultation [facility] Start: 09-06-2024 Care planning and problem solving actions [facility] Start: 09-06-2024 [facility] Start: 09-05-2024 Application of intermittent pneumatic compression device [facility] Start: 09-05-2024 Continuous positive airway pressure ventilation treatment [facility] Start: 09-05-2024 Cardiac monitoring [facility] Start: 09-05-2024 Care regimes management [facility] Start: 09-05-2024 Catheterization of vein [facility] Start: 09-05-2024 Consultation [facility] Start: 09-05-2024 Notification of physician [place] Start: 09-05-2024 Vital signs measurements [facility] Start: 09-05-2024 End: 09-05-2024 [facility] Start: 09-05-2024 Following clinical pathway protocol [facility] Start: 09-05-2024 Admission procedure [facility] Start: 09-05-2024 [facility] Start: 09-02-2024 Patient discharge [facility] Start: 08-31-2024 Care planning and problem solving actions [facility] Start: 08-30-2024 [facility] Start: 08-29-2024 Following clinical pathway protocol [facility] Start: 08-29-2024 Assessment of risk of venous thromboembolism [facility] Start: 08-29-2024 Care regimes management [facility] Start: 08-29-2024 Fall prevention [facility] Start: 08-29-2024 Inhalation therapy procedure [facility] Start: 08-29-2024 Insertion of catheter into peripheral vein [facility] Start: 08-29-2024 Measuring intake and output [facility] Start: 08-29-2024 Notification of physician [place] Start: 08-29-2024 Patient referral to dietitian [facility] Start: 08-29-2024 Providing care according to standard [facility] Start: 08-29-2024 Provision of activity privileges [facility] Start: 08-29-2024 Referral to gastroenterology service [facility] Start: 08-29-2024 Referral to client coordinator [facility] Start: 08-29-2024 Referral to occupational therapist [facility] Start: 08-29-2024 Referral to service [facility] Start: 08-29-2024 Vital signs measurements [facility] Start: 08-29-2024 End: 08-29-2024 [facility] Start: 08-29-2024 Admission procedure [facility] Start: 08-21-2024 [facility] Start: 04-04-2024 COVID-19 Vaccine ( season) COVID-19 Vaccine ( season) [facility] Start: 04-04-2024 Influenza vaccination Influenza Vaccine (#1) [facility] Start: 2021 Prostate specific antigen measurement Prostate Cancer Screening Discussion [facility] Start: 2016 Zoster Vaccines (1 of 2) Zoster Vaccines (1 of 2) [facility] Start: 2011 Screening for malignant neoplasm of colon [facility] Start: 2001 Lipid panel Lipid Screening [facility] Start: 1988 DTaP/Tdap/Td Vaccines (1 - Tdap) DTaP/Tdap/Td Vaccines (1 - Tdap) [facility] Start: 1985 Hepatitis A Vaccine (1 of 2 - Risk 2-dose series) Hepatitis A Vaccine (1 of 2 - Risk 2-dose series) [facility] Start: 1985 Hepatitis A Vaccines (1 of 2 - Risk 2-dose series) Hepatitis A Vaccines (1 of 2 - Risk 2-dose series) [facility] Start: 1985 Hepatitis B Vaccine (1 of 3 - 19+ 3-dose series) Hepatitis B Vaccine (1 of 3 - 19+ 3-dose series) [facility] Start: 1985 Hepatitis B Vaccines (1 of 3 - 19+ 3-dose series) Hepatitis B Vaccines (1 of 3 - 19+ 3-dose series) [facility] Start: 1985 Pneumococcal vaccination Pneumococcal Vaccine (1 of 2 - PCV) [facility] Start: 1985 Pneumococcal Vaccine: 50+ (1 of 2 - PCV) Pneumococcal Vaccine: 50+ (1 of 2 - PCV) [facility] Start: 1985 Shingrix Vaccine (1 of 2) Shingrix Vaccine (1 of 2) [facility] Start: 1985 Urine microalbumin profile DTaP,Tdap,Td Vaccine (1 - Tdap) [facility] Start: 1984 Annual PCP Team Chronic Disease Visit Annual PCP Team Chronic Disease Visit [facility] Start: 1984 Anxiety Screening Anxiety Screening [facility] Start: 1984 Depression Screening Depression Screening [facility] Start: 1984 Hepatitis C screening Hepatitis C Screening [facility] Start: 1984 HIV screening HIV Screening [facility] Start: 1976 Glaucoma screening Diabetes: Retinopathy Screening [facility] Start: 1967 MMR Vaccines (1 of 1 - Standard series) MMR Vaccines (1 of 1 - Standard series) [facility] Start: 1966 Hemoglobin A1c measurement Diabetes: Hemoglobin A1C [facility] Start: 1966 HIV screening HIV Screening [facility] Start: 1966 Lipid panel Lipid Panel [facility] Start: 1966 Screening for malignant neoplasm of colon [facility] Start: 1966 Urine screening for protein Diabetes: Urine Protein Screening [facility] Start: 1966 Yearly Adult Physical Yearly Adult Physical [facility] End: 10-04-2024 Albumin [Mass/volume] in Body fluid [facility] Work Phone: Comment on above: Once (Lab) for 1 Occurrences starting until 10/04/2024 Once for 1 Occurrenc es starting 10/04/2024 until 10/04/2024 End: 10-04-2024 Bacteria identified in Body fluid by Culture [facility] Work Phone: Comment on above: Once (Lab) for 1 Occurrences starting until 10/04/2024 End: 10-04-2024 Clostridioides difficile toxin A+B tcdA+tcdB genes [Presence] in Stool by ANANTH with probe detection C. difficile, PCR Microbiology STAT STAT (Lab) for 1 Occurrences starting 10/04/2024 until 10/04/2024 [facility] Work Phone: Comment on above: STAT (Lab) for 1 Occurrences starting until 10/04/2024 End: 10-04-2024 Extra Urine [facility] Tube Extra Urine [facility] T[facility] Lab Timed Once for 1 Occurrences starting 10/04/2024 until 10/04/2024 [facility] Work Phone: Comment on above: Once for 1 Occurrences starting 10/05/19 until 10/04/2024 End: 10-04-2024 Glucose [Mass/volume] in Body fluid [facility] Work Phone: Comment on above: Once (Lab) for 1 Occurrences starting until 10/04/2024 Once for 1 Occurrenc es starting 10/04/2024 until 10/04/2024 Glucose [Mass/volume ] in Serum or Plasma [facility] End: 10-04-2024 Hemoglobin.gastrointestin al.lower [Presence] in Stool by Immunoassay Fecal Occult Blood Immunoassy Microbiology STAT Once (Lab) for 1 Occurrences starting 10/04/2024 until 10/04/2024 [facility] Work Phone: Comment on above: Once (Lab) for 1 Occurrences starting until 10/04/2024 End: 10-04-2024 Lactate dehydrogenase [Enzymatic activity/volume] in Body fluid by Lactate to pyruvate reaction [facility] Work Phone: Comment on above: Once (Lab) for 1 Occurrences starting until 10/04/2024 Once for 1 Occurrenc es starting 10/04/2024 until 10/04/2024 Lactate dehydrogenas e [Enzymatic activity/volume] in Body fluid by Pyruvate to lactate reaction [facility] Lactic acid measurement [facility] End: 10-04-2024 Non-gynecological cytology method study Cytology (Non-Gynecologic) Pathology and Cytology Routine Once (Lab) for 1 Occurrences starting 10/04/2024 until 10/04/2024 [facility] Service Area Work Phone: Comment on above: Once (Lab) for 1 Occurrences starting until 10/04/2024 Ova OR parasites identification [facility] Patient Education [facility] Work Phone: Patient referral [facility] Work Phone: End: 10-04-2024 pH of Body fluid [facility] Work Phone: Comment on above: Once (Lab) for 1 Occurrences starting until 10/04/2024 End: 10-04-2024 Protein [Mass/volume] in Body fluid [facility] Work Phone: Comment on above: Once (Lab) for 1 Occurrences starting until 10/04/2024 Once for 1 Occurrenc es starting 10/04/2024 until 10/04/2024 Protein [Mass/volume ] in Body fluid [facility] End: 10-04-2024 Stool Pathogen Panel, PCR Stool Pathogen Panel, PCR Microbiology STAT Once (Lab) for 1 Occurrences starting 10/04/2024 until 10/04/2024 [facility] Work Phone: Comment on above: Once (Lab) for 1 Occurrences starting until 10/04/2024 UA DIP, URINE (POC) UA DIP, URIN E (POC) Lab Routine Screening for genitourinary condition 1 Occurrences starting 12/07/2024 [facility] Work Phone: Comment on above: 1 Occurrences starting 12/07/2024 End: 10-04-2024 Urinalysis complete W Reflex Culture panel - Urine [facility] Service Area Work Phone: Comment on above: Once (Lab) for 1 Occurrences starting until 10/04/2024 Once for 1 Occurrenc es starting 10/04/2024 until 10/04/2024 Urine culture [place] Urine culture [place] Urine culture [place] Urine culture [place] Urine culture [place] Urine culture [place] Immunizations Immunization Date Immunization Notes Care Provider Danny méndez 11-16-2024 COVID-19 vaccine, ag e 12+ yr ([facility]) Jeremi Abreu RN Work Phone: [facility] 11-15-2024 pneumococcal conjuga te (PCV20) vaccine, 20 valent (PREVNAR 20) Marah Claroswellington TUBING MACHINE TENDER Work Phone: [facility] 11-14-2024 hepatitis A vaccine, adult dosage Marah Porteranitra TUBING MACHINE TENDER Work Phone: [facility] 11-14-2024 Hepatitis B vaccine (recombinant), CpG adjuvanted Marah Porteranitra TUBING MACHINE TENDER Work Phone: [facility] 11-14-2024 tetanus toxoid, redu danica diphtheria toxoid, and acellular pertussis vaccine, adsorbed Marah Arauz TUBING MACHINE TENDER Work Phone: [facility] 09-20-2024 influenza, seasonal, injectable Jeremi Abreu RN Work Phone: [facility] Work Phone: 09-15-2024 tuberculin skin test ; purified protein derivative solution, intradermal Jeremi Abreu RN Work Phone: [facility] Payers Date Payer Category Payer Medicaid [id number] 2024 Medicaid [id number] 2024 Unknown [id number] 2024 Self-pay 1965 Unknown [id number] 2.16.8 40.1.396749.3.579.2.1243 Unknown [id number] 2.16.8 40.1.244713.3.579.2.462 Unknown [id number] 2.16.8 40.1.449979.3.579.2.462 Unknown [id number] 2.16.8 40.1.373373.3.579.2.462 Unknown [id number] 2.16.8 40.1.308645.3.579.2.462 Unknown [id number] 2.16.8 40.1.139698.3.579.2.462 Unknown [id number] 2.16.8 40.1.291443.3.579.2.462 Unknown [id number] 2.16.8 40.1.409356.3.579.2.462 Unknown [id number] 2.16.8 40.1.457781.3.579.2.462 Unknown [id number] 2.16.8 40.1.896931.3.579.2.462 Unknown [id number] 2.16.8 40.1.192692.3.579.2.462 Unknown [id number] 2.16.8 40.1.145255.3.579.2.462 Unknown [id number] 2.16.8 40.1.347955.3.579.2.462 Unknown [id number] 2.16.8 40.1.720706.3.579.2.462 Unknown [id number] 2.16.8 40.1.276472.3.579.2.462 Unknown [id number] 2.16.8 40.1.064412.3.579.2.462 Unknown [id number] 2.16.8 40.1.841175.3.579.2.462 Unknown [id number] 2.16.8 40.1.016859.3.579.2.462 Unknown [id number] 2.16.8 40.1.594914.3.579.2.462 Unknown [id number] 2.16.8 40.1.309567.3.579.2.462 Unknown [id number] 2.16.8 40.1.233900.3.579.2.462 Unknown [id number] 2.16.8 40.1.719074.3.579.2.462 Unknown [id number] 2.16.8 40.1.931899.3.579.2.462 Unknown [id number] 2.16.8 40.1.946183.3.579.2.462 Unknown [id number] 2.16.8 40.1.176433.3.579.2.462 Unknown [id number] 2.16.8 40.1.639338.3.579.2.462 Unknown [id number] 2.16.8 40.1.464668.3.579.2.462 Unknown [id number] 2.16.8 40.1.267472.3.579.2.462 Unknown [id number] 2.16.8 40.1.706150.3.579.2.462 Unknown [id number] 2.16.8 40.1.727431.3.579.2.462 Unknown [id number] 2.16.8 40.1.539610.3.579.2.462 Unknown [id number] 2.16.8 40.1.333745.3.579.2.462 Unknown [id number] 2.16.8 40.1.077287.3.579.2.462 Unknown [id number] 2.16.8 40.1.717035.3.579.2.462 Unknown [id number] 2.16.8 40.1.652116.3.579.2.462 Unknown [id number] 2.16.8 40.1.974715.3.579.2.462 Unknown [id number] 2.16.8 40.1.524286.3.579.2.462 Unknown [id number] 2.16.8 40.1.316920.3.579.2.462 Unknown [id number] 2.16.8 40.1.188698.3.579.2.462 Unknown [id number] 2.16.8 40.1.321613.3.579.2.462 Unknown [id number] 2.16.8 40.1.929914.3.579.2.462 Unknown [id number] 2.16.8 40.1.768165.3.579.2.462 Unknown [id number] 2.16.8 40.1.056933.3.579.2.462 Unknown [id number] 2.16.8 40.1.178462.3.579.2.462 Unknown [id number] 2.16.8 40.1.655115.3.579.2.462 Unknown [id number] 2.16.8 40.1.571301.3.579.2.462 Unknown [id number] 2.16.8 40.1.709190.3.579.2.462 Unknown [id number] 2.16.8 40.1.119040.3.579.2.462 Unknown [id number] 2.16.8 40.1.409427.3.579.2.462 Unknown [id number] 2.16.8 40.1.236341.3.579.2.462 Unknown [id number] 2.16.8 40.1.369178.3.579.2.462 Unknown [id number] 2.16.8 40.1.025149.3.579.2.462 Unknown [id number] 2.16.8 40.1.808045.3.579.2.462 Unknown [id number] 2.16.8 40.1.993145.3.579.2.462 Unknown [id number] 2.16.8 40.1.660876.3.579.2.462 Unknown [id number] 2.16.8 40.1.934508.3.579.2.462 Unknown [id number] 2.16.8 40.1.751396.3.579.2.462 Unknown [id number] 2.16.8 40.1.336633.3.579.2.462 Unknown [id number] 2.16.8 40.1.560159.3.579.2.462 Unknown [id number] 2.16.8 40.1.388844.3.579.2.462 Unknown [id number] 2.16.8 40.1.689208.3.579.2.462 Unknown [id number] 2.16.8 40.1.237745.3.579.2.462 Unknown [id number] 2.16.8 40.1.369737.3.579.2.462 Unknown [id number] 2.16.8 40.1.168945.3.579.2.462 Unknown [id number] 2.16.8 40.1.246601.3.579.2.462 Unknown [id number] 2.16.8 40.1.103360.3.579.2.462 Social History Date Type Detail Facility Start: 10-04-2024 End: 01-02-2025 Tobacco smoking status NHIS Ex-smoker [facility] Work Phone: History of tobacco use [facility] Work Phone: History of tobacco use Cigarette Smoker [facility] Work Phone: Start: 10-04-2024 End: 11-11-2024 Tobacco use and exposure Smokeless tobacco non-user [facility] Work Phone: Start: 10-04-2024 Alcoholic beverage intake Ex-drinker (finding) [facility] Work Phone: Start: 10-04-2024 End: 11-15-2024 History of Social function [place] [facility] Start: 10-04-2024 End: 11-15-2024 Tobacco use panel [facility] Start: 1965 Sex assigned at Not on file [facility] Work Phone: Start: 09-24-2024 End: 10-04-2024 Exposure to SARS-CoV-2 (event) Not sure [facility] Work Phone: Start: 10-11-2024 End: 11-21-2024 Sex Male (finding) [facility] Start: 1965 Sex Assigned At Male [facility] Start: 11-11-2024 End: 11-18-2024 Alcoholic beverage intake Lifetime non-drinker (finding) [facility] Has the [employer], or water MD Insider threatened to shut off services in your home in past 12Mo No [facility] (I/We) worried wheth er (my/our) food would run out before (I/we) got money to buy more. Sometimes true [facility] In the past 12 month s, has lack of transportation kept you from medical appointments or from getting medications? Yes [facility] Medical Equipment Procedure Code Equipment Code Equipment Origin al Text Equipment Identifier Dates Cystoscopic insertion of stent ([id number]) [id number] FDA Start: 09-05-2024 Goals Date Patient Goal Desired Activity /State Functional Status Date Assessment Result Facility 01-05-2025 Functional status With Assist of 1 [facility] Work Phone: 01-05-2025 Functional status Ambulates;Bath room Privilege [facility] Work Phone: 12-02-2024 Functional status Ambulates [facility] Work Phone: 11-25-2024 Functional status Bedrest [facility] Work Phone: 11-18-2024 Are you deaf, or do you have serious difficulty hearing Yes 11/18/2024 10:13 AM Anika Andino RN Yes [facility] 11-18-2024 Are you blind, or do you have serious difficulty seeing, even when wearing glasses No 11/18/2024 10:13 AM Anika Andino RN No [facility] 11-18-2024 Do you have serious difficulty walking or climbing stairs Yes 11/18/2024 10:13 AM Anika Andino, DAYSI Yes [facility] 11-18-2024 Do you have difficul ty dressing or bathing Yes 11/18/2024 10:13 AM Anika Andino, DAYSI Yes [facility] 11-18-2024 Because of a physica l, mental, or emotional condition, do you have difficulty doing errands alone such as visiting a physician's office or shopping Yes 11/18/2024 10:13 AM EDT Anika Carolina RN Yes [facility] 11-11-2024 Functional status Bedpan [facility] Work Phone: 09-15-2024 Functional status Ambulates [facility] Work Phone: 09-02-2024 Functional status Bathroom Privilege [facility] Work Phone: Mental Status Date Assessment Result Facility 01-05-2025 Cognitive function Voice/Name [facility] Work Phone: 01-02-2025 Cognitive function Awake;Alert;Appropriat e [facility] Work Phone: 12-30-2024 Cognitive function Awake;Alert;A ppropriate; Follows Commands [facility] Work Phone: 12-02-2024 Cognitive function Voice/Name [facility] Work Phone: 11-25-2024 Cognitive function Voice/Name [facility] Work Phone: 11-18-2024 Because of a physica l, mental, or emotional condition, do you have serious difficulty concentrating, remembering, or making decisions Yes 11/18/2024 10:13 AM EDT Anika Carolina RN Yes [facility] 11-10-2024 Cognitive function Voice/Name [facility] Work Phone: 09-29-2024 Cognitive function Awake;Alert;A ppropriate; Follows Commands [facility] Work Phone: 09-14-2024 Cognitive function Appropriate;Cooperativ e [facility] Work Phone: 09-14-2024 Cognitive function Voice/Name [facility] Work Phone: 09-02-2024 Cognitive function Voice/Name [facility] Work Phone: Clinical Notes 08-30-2024 to 01-05-2025 Note Date & Type Note Facility 01-05-2025 Consult note Note Date/Time January 05, 2025 5:01p [facility] Medical Records Department [address] [place] [address] Counseling Note - Pharmacy 01/05/25 1447 MR#: [id number] Acct: [id number] Name: FRANKLIN ARCHULETA Rep #:[id number] : 1965 59 From: Kourtney Reece PCP: BRITTANY PenaC Status:ADM I N Y Location: [place] [address] Pharmacy NE Med Reconciliation Pharmacy Service has [...] solution (Constulose) 15 ml PO TID PRN vvhuxqwhcvuh39/27/25 L.acidophil,salivari-Bifido bifidum-Strep thermoph 175 mg capsule 1 [...] Signature (if applicable): Date CC: ~ Signed [facility] Work Phone: 1(260) 183-402606-04-2025 Discharge summary Author Hill Acuña [facility] Note Date/Time January 05, 2025 2:07p [facility] Medical Records Department [address] [place] [address] Discharge Summary 01/05/25 1404 MR#: [id number] Acct: [id number] Name: FRANKLIN ARCHULETA Rep #:[id number] : 1965 59 From: Hill Acuña MD PCP: YG Pena Status:ADM I N Location: [place] [address] Providers Date of Admission: 01/02/25 Date of [...] Secondary to multiple medical comorbidities. Transfer to prison facility had been recommended to patient during previous hospitalization he did decline. I had a discussion with patient he is amenable to entertaining the idea of going to prison facility. Subsequently requested for PT OT eval and rn social services to assist with discharge planning ? 01/03/2025; plan is to discuss with case management regarding disposition ? 01/05/2025; awaiting insurance pre-CERT prior to transfer to prison facility ? Patient was discharged to prison facility once insurance. 2. Severe hypokalemia ? [...] solution (Constulose) 15 ml PO TID PRN bkoochveqlti36/27/25 L.acidophil,salivari-Bifido bifidum-Strep thermoph 175 mg capsule 1 [...] (Auto) 69.1, Lymph % (Auto) 13.4 L, [place] % (Auto) 11.6 H, Eos % (Auto) [...] in before D/C Order can be placed): [facility] Facility Charges/Coding Visit Charges Inpatient E&M: 26299 Disch Hosp >30min 01/05/25 1407 <Electronically signed by Hill Acuña MD> Cosigner Signature (if applicable): CC: YG Elias; Dr. Hill Acuña MD~ Signed [facility] Work Phone: 1([phone]) 324-964606-04-2025 Discharge summary Author Hill Acuña [facility] Note Date/Time January 05, 2025 2:04p m [facility] Medical Records Department [address] [place] [address] Transfer to Extended Care MR#: [id number] Acct: [id number] Name: FRANKLIN ARCHULETA Rep #:[id number] : 1965 59 From: Hill Acuña MD PCP: YG Pena Status:ADM I N Certification of patient admission REQUIRED AT TIME OF ADMISSION. I CERTIFY THAT POST-HOSPITAL ECF SERVICES ARE REQUIRED TO BE GIVEN ON AN IN-PATIENT BASIS BECAUSE OF THE ABOVE NAMED PATIENT'S NEED FOR SKILLED NURSING CARE ON A CONTINUING BASIS FOR THE [...] Secondary to multiple medical comorbidities. Transfer to prison facility had been recommended to patient during previous hospitalization he did decline. I had a discussion with patient he is amenable to entertaining the idea of going to prison facility. Subsequently requested for PT OT eval and rn social services to assist with discharge planning ? 01/03/2025; plan is to discuss with case management regarding disposition ? 01/05/2025; awaiting insurance pre-CERT prior to transfer to prison facility 2. Severe hypokalemia ? Patient potassium [...] in before D/C Order can be placed): [facility] Facility 01/05/25 1404 <Electronically signed by Hill Acuña MD> Cosigner Signature (if applicable): CC: MOE-C Josy Elias; Dr. Buster Fuchs MD ~ [facility] Work Phone: 1(604) 656-219506-04-2025 [facility]06-04-2025 Progress note Author Hill Acuña [facility] Note Date/Time January 05, 2025 11:01 am [facility] Medical Records Department [address] [place] [address] Progress Note - Hospitalist 01/05/25 0737 MR#: [id number] Acct: [id number] Name: FRANKLIN ARCHULETA Rep #:[id number] : 1965 59 From: Hill Acuña MD PCP: YG Pena Status:ADM I N Location: [place] [address] Reason for Visit Reason for Visit: Diagnoses Acute kidney failure, unspecified (01/02/25) Unspecified fall, initial encounter (01/02/25) Subjective Subjective Patient seen blood glucose control not optimal further adjustment made to patient insulin regimen. Patient awaiting insurance precertification prior to transfer to prison [facility] Objective Data Objective Data Vital Signs: [...] (Auto) 69.1, Lymph % (Auto) 13.4 L, [place] % (Auto) 11.6 H, Eos % (Auto) [...] Secondary to multiple medical comorbidities. Transfer to prison facility had been recommended to patient during previous hospitalization he did decline. I had a discussion with patient he is amenable to entertaining the idea of going to prison facility. Subsequently requested for PT OT eval and rn social services to assist with discharge planning ? 01/03/2025; plan is to discuss with case management regarding disposition ? 01/05/2025; awaiting insurance pre-CERT prior to transfer to prison facility 2. Severe hypokalemia ? Patient potassium [...] SCDs for Charges/Coding Visit Charges Inpatient E&M: 65632 Subs Hosp L2 01/05/25 1101 <Electronically signed by Hill Acuña MD> Cosigner Signature (if applicable): CC: ~ Signed [facility] Work Phone: 1([phone]) 854-492806-03-2025 Progress note Author Hill Acuña [facility] Note Date/Time January 04, 2025 10:18 am [facility] Medical Records Department [address] [place] [address] Progress Note - Hospitalist 01/04/25 1014 MR#: [id number] Acct: [id number] Name: FRANKLIN ARCHULETA Rep #:[id number] : 1965 59 From: Hill Acuña MD PCP: YG Pena Status:ADM I N Location: [place] [address] Reason for Visit Reason for Visit: Diagnoses [...] Secondary to multiple medical comorbidities. Transfer to prison facility had been recommended to patient during previous hospitalization he did decline. I had a discussion with patient he is amenable to entertaining the idea of going to prison facility. Subsequently requested for PT OT eval and rn social services to assist with discharge planning ? 01/03/2025; [...] SCDs for Charges/Coding Visit Charges Inpatient E&M: 87796 Subs Hosp L2 01/04/25 1018 <Electronically signed by Hill Acuña MD> Cosigner Signature (if applicable): CC: ~ Signed [facility] Work Phone: 1(478) 839-250406-02-2025 Progress note Author Hill Acuña [facility] Note Date/Time January 03, 2025 9:52a m [facility] Medical Records Department [address] [place] [address] Progress Note - Hospitalist 01/03/25 0839 MR#: [id number] Acct: [id number] Name: FRANKLIN ARCHULETA Rep #:[id number] : 1965 59 From: Hill Acuña MD PCP: YG Pena Status:ADM I N Location: [place] [address] Reason for Visit Reason for Visit: Diagnoses [...] (Auto) 67.5, Lymph % (Auto) 13.9 L, [place] % (Auto) 11.5 H, Eos % (Auto) [...] Secondary to multiple medical comorbidities. Transfer to prison facility had been recommended to patient during previous hospitalization he did decline. I had a discussion with patient he is amenable to entertaining the idea of going to prison facility. Subsequently requested for PT OT eval and rn social services to assist with discharge planning ? 01/03/2025; [...] SCDs for Charges/Coding Visit Charges Inpatient E&M: 57166 Subs Hosp L2 01/03/25 0952 <Electronically signed by Hill Acuña MD> Cosigner Signature (if applicable): CC: ~ Signed [facility] Work Phone: 1(415) 197-920706-01-2025 Progress note Author Hill Acuña [facility] Note Date/Time January 02, 2025 9:58a m [facility] Medical Records Department [address] [place] [address] Progress Note - Hospitalist 01/02/25 0736 MR#: [id number] Acct: [id number] Name: FRANKLIN ARCHULETA Rep #:[id number] : 1965 59 From: Hill Acuña MD PCP: Josy Elias, WATCHMAKING TEACHER-C Status:ADM I N Location: [place] [address] Reason for Visit Reason for Visit: Diagnoses Acute kidney failure, unspecified (01/02/25) Unspecified fall, initial encounter (01/02/25) Subjective Subjective Patient is a 59-year-old gentleman with recent multiple hospitalization presented to the emergency department with progressive generalized weakness and vomiting. This was apparently his third visit to the ED within a week. Patienthad been encouraged to be discharged to a prison facility he however declined. Objective Data Objective [...] (Auto) 68.0, Lymph % (Auto) 12.2 L, [place] % (Auto) 11.9 H, Eos % (Auto) [...] Secondary to multiple medical comorbidities. Transfer to prison facility had been recommended to patient during previous hospitalization he did decline. I had a discussion with patient he is amenable to entertaining the idea of going to prison facility. Subsequently requested for PT OT eval and rn social services to assist with discharge planning 2. Severe [...] documentation, 38Minutes Charges/Coding Visit Charges Inpatient E&M: 39201 PROLNG IP/OBS E/M EA 15 MIN Multi Select Codes Visit Charges Visit Charges: 47563 PROLNG IP/OBS E/M EA 15 MIN 01/02/25 0958 <Electronically signed by Hill Acuña MD> Cosigner Signature (if applicable): CC: ~ Signed [facility] Work Phone: 1(228) 369-220806-01-2025 History and physical note Author Buster Fuchs [facility] Note Date/Time January 02, 2025 6:44a m [facility] Medical Records Department [address] [place] [address] H&P Exam - Hospitalist 01/02/25 0556 MR#: [id number] Acct: [id number] Name: FRANKLIN ARCHULETA Rep #:[id number] : 1965 59 From: Buster duarte MD PCP: YG Pena Status:ADM I N Location: [place] [address] HPI - General General Date of Admission: 01/02/25 HPI Narrative FRANKLIN ARCHULETA, is a 59 M who presents to the hospital with weakness and a fall. He did not hit his head or lose consciousness. He has had an extensive recent medical history with cirrhosis and UTI with staghorn calculus, he was in the ICUin October. 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 Was not considered to be a liver transplant candidate and was placed on anticoagulation. He has had a couple of readmissions for weakness and debility. [place] to possibly have aUTI given a staghorn [...] Heis receiving potassium infusion in the ER. [facility] Medical History Weakness Diarrhea Sepsis Acidosis, [...] (Auto) 68.0, Lymph % (Auto) 12.2 L, [place] % (Auto) 11.9 H, Eos % (Auto) [...] insufficiency fracture again noted, unchanged. Reading Location: [id number] Brain CT 01/02/25 03:55 IMPRESSION: No intracranial hemorrhage, mass effect or calvarial fracture. Moderate volume loss, atrophy again noted. Mild left maxillary sinus disease appears mildly decreased from the prior study. Reading Location: [id number]NO Cervical Spine CT 01/02/25 03:55 IMPRESSION: No [...] once verified Charges/Coding Visit Charges Inpatient E&M: 85087 Init Hosp L2 01/02/25 0644 <Electronically signed by Buster Fuchs MD> Cosigner Signature (if applicable): CC: YG Elias; Dr. Buster Fuchs MD~ Signed [facility] Work Phone: 1(898) 968-345806-01-2025 Discharge summary Author Roddy Reeves [facility] Note Date/Time January 02, 2025 6:00a m [facility] Medical Records Department [address] [place] [address] Emergency Department Summary 01/02/25 MR#: [id number] Acct: [id number] Name: FRANKLIN ARCHULETA Rep #:[id number] : 1965 59 From: Roddy Revees DO PCP: BRITTANY PenaC Status:REG E R Location: ED [facility] History of Present Illness Chief [...] was here recently and was sent home. [facility] Medical History Weakness Diarrhea Sepsis Acidosis, lactic [...] mg tablet (Xifaxan) 550 mg PO BID [facility] ea #60 tabs 09/02/24 11/28/24 Rx insulin [...] Patient following commands that he was at [facility] that wewere in the end of December [...] (Auto) 68.0 Lymph % (Auto) 12.2 L [place] % (Auto) 11.9 H Eos % (Auto) [...] Clarity Turbid Urine pH 6.0 Ur Specific [place] 1.015 Urine Protein 100 H Urine Glucose [...] NP-C [Primary Care Provider] - Print Language: Citizen Of [place] Disposition Disposition: Acute Care Hospital [facility] What to do if you have Problems For any increased pain, shortness of breath, bleeding, nausea or vomiting, chestpain, or any unexpected problems, contact your Primary Care Provider. Call [facility] ([phone]) or report to the closest Emergency Room. Call 911 if necessary. 01/02/25 0600 <Electronically signed by Roddy Reeves DO> Cosigner Signature (if applicable): CC: YG Elias ~ Signed [facility] Work Phone: 1([phone]) 316-322306-01-2025 Radiology Diagnostic study [facility]06-01-2025 Radiology Diagnostic study [facility]06-01-2025 Radiology Diagnostic study [facility] 12-30-2024 Radiology Diagnostic study [facility]05-25-2025 Radiology Diagnostic study [facility]05-14-2025 Radiology Diagnostic study [facility]05-01-2025 [facility]04-24-2025 [facility]04-20-2025 Radiology Diagnostic study [facility]04-17-2025 Telephone encounter Note* Telephone Encounter - Marah [...] will be scheduled to follow up with [facility] Hot Knife Cutter. JEANNINE asked that Dr. Mosley inform this pt that he can return to our transplant center again and be re-evaluated once he has addressed his prohibitive psychosocial concerns (lack of caregivers, unstable housing, unstable finances, unreliable transportation). Dr. Mosley agreed to do so. [facility] Work Phone: 1([phone]) 411-998704-17-2025 Miscellaneous Notes* Telephone Encounter - Marah Arauz [...] will be scheduled to follow up with [facility] Hot Knife Cutter. JEANNINE asked that Dr. Mosley inform this pt that he can return to our transplant center again and be re-evaluated once he has addressed his prohibitive psychosocial concerns (lack of caregivers, unstable housing, unstable finances, unreliable transportation). Dr. Mosley agreed to do so. [facility]04-17-2025 Telephone encounter Note * Telephone Encounter [...] transportation. . Jeremi Abreu RN, BSN Liver [facility] [employer] [facility] Work Phone: [phone] Miscellaneous Notes* Telephone Encounter - Jeremi Abreu [...] transportation. . Jeremi Abreu RN, BSN Liver Director [employer] documented in this encounterLuther[facility] Hospital04-17-2025 [facility]Prom[facility]04-17-2025 NoteProm[facility]04-16-2025 NoteProm[facility]04-16-2025 NoteProm[facility]04-16-2025 Note [facility]04-15-2025 NoteProm[facility]04-15-2025 NoteProm[facility]04-15-2025 NoteProm[facility] 11-15-2024 NoteProm[facility]04-14-2025 NoteProm[facility]04-14-2025 NoteProm[facility]04-14-2025 History of Present illness Narrative* Marah [...] 15, 2024 2:35 PM documented in this encounterLutheran Hospital04-14-2025 NotePromedica [facility] Hospital04-14-2025 History of Present illness Narrative* Virgil Farley DDS - 11/15/2024 1:48 PM EDTSummary: Liver Transplant Dental Bedside Clearance See inpatient note for this encounter on 11/15/2024. Virgil Farley DDS documented in this encounterLutheran Hospital04-14-2025 NotePromed[facility]04-13-2025 NoteProm[facility]04-12-2025 NoteProm[facility]04-11-2025 History of Present illness Narrative* Lizett [...] mg capsule(s) rifAXIMin 550 mg tab(s) (XIFAXAN) ibgwtws-cacebrvpe-snjuxhf D3 500 mg-5 mcg (200 unit) 1 [...] Guzman, PharmD Transplant Pharmacy Clinical Specialist Pager: [phone] documented in this encounterLutheran Hospital04-11-2025 NotePromedica [facility]04-11-2025 NoteProm[facility]04-11-2025 History of Present illness Narrative* Jeremi Abreu RN - 11/12/2024 2:52 PM EDT The following information has been provided/discussed with the patient/family during Shared MedicalAppointment education class: Informed Consent for Organ Transplant Program Participation version February 20, 2023. SRTR information provided and questions answered. Informed patient to call collection coordinator with any questions. UNOS information regarding multiple listings for organ transplantation Evaluation process including presentation to selection committee and listing criteria Surgical procedure, including post-operative management, hospitalization, immunosuppressive medications and their side effects (including the risk for hypertension, diabetes, kidney problems and cancers) and rn long term care follow up after transplant. Possibility of recurrent [...] was also addressed Patient was provided with [facility] information sheet regarding transplantation of HepatitisC viremic [...] In Department: TRANSPLANT CENTER documented in this encounterLutheran Hospital04-11-2025 NotePromedica [facility] Hospital04-11-2025 History of Present illness Narrative* Marah [...] 12, 2024 1:16 PM documented in this encounterLutheran Hospital04-11-2025 Miscellaneous Notes* Telephone Encounter - Jeremi Abreu RN - 11/12/2024 12:08 PM EDT INFORMED CONSENT Franklin Chapa [facility] Medical Record: [id number] Informed consent for Organ Transplant Program Participation [...] questions answered. Jeremi Abreu RN, BSN Liver Director [employer] documented in this encounterLutheran Hospital04-11-2025 Telephone encounter Note * Telephone Encounter - Jeremi Abreu RN - 11/12/2024 12:08 PM EDT INFORMED CONSENT Franklin Chapa [facility] Medical Record: [id number] Informed consent for Organ Transplant Program Participation [...] questions answered. Jeremi Abreu RN, BSN Liver Director [employer] [facility] Work Phone: [phone]) [phone] [facility]04-11-2025 NoteHNO ID: [id number] Author: KIRTI VELÁSQUEZ RN Service: Nursing Author Type: Registered Nurse Type: Nursing Progress Note Filed: 11/12/2024 00:58 Note Text: Other: PTTAC-no clot detected at 320-heparin gtt stopped-need futher orders-licensed occupational therapy assistant notifiedPromedica Memorial Hospital04-10-2025 NoteProm[facility] Hospital 11-11-2024 NotePromedica Memorial Hospital04-10-2025 NotePromedica [facility] Hospital04-09-2025 Discharge summary Author Kathie Lemos [facility] Note Date/Time November 10, 2024 8:42 pm [facility] Medical Records Department [address] [place] [address] Discharge Summary 11/10/241936 MR#: [id number] Acct: [id number] Name: FRANKLIN ARCHULETA Rep #:[id number] : 1965 59 From: Kathie Lemos MD PCP: Care Physician,No Primary Status :ADM IN Location: [place] [address] Providers Date of Admission: 10/29/24 Date of Discharge: 11/10/24 Primary Care Physician: No Primary Care Phys Consultations 10/29/24 01:15 Consult: Urology Routine Consulting Provider: Foster Rascon Reason for Consult: Sepsis with UTI and Staghorn Calculus. EMERGENT Consult: No MD Notified: Yes Date Notified: 10/29/24 Time Notified: 08:07 Method of Notification: Verbal 10/29/24 01:47 Consult: Customer Account Representative / Pulmonary Medicine Routine Consulting Provider: Intensivists/Pulmonary Med Reason for Consult: Sepsis, UTI, Diarrhea, Abdominal Pain and Back Pain. EMERGENT Consult: No MD Notified: Yes Date Notified: 10/29/24 Time Notified: 04:58 Method of Notification: Text 10/30/24 03:54 Consult: Gastroenterology Routine Consulting Provider: [facility] Reason for Consult: BOYER, elevated ammonia EMERGENT Consult: No MD Notified: Yes Date Notified: 10/30/24 Time Notified: 07:31 Method of Notification: Text 11/09/24 21:26 Consult: Gastroenterology Routine Consulting Provider: [facility] Reason for Consult: cirrhosis,ascites,splenic thrombosis, low [...] diabetes, staghorn colliculi, cirrhosis who presented to [facility] ED 10/29/2024 with sepsis and was found [...] heme-onc was in agreement. Reach out to [facility] and ultimately patient was accepted by the log rider Dr. Neal. 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 11/10/241936<Electronically signed by Kathie Lemos MD>Kathie Lemos MD CC: YG Delgadillo; Dr. Hill Herrmann MD; Dr. Hill Acuña MD; Dr. Hill aCro DO; Dr. Thiago Wray MD; Dr. Blair Cage MD; Dr. Foster Gresham MD; Dr. Gabbi Hughes MD; Dr. Buster Fuchs MD; Dr. Thai Godfrey MD; Dr. Zachariah Glover MD; Dr. Juan Daniel Garza MD; Dr. Scott Weston DO; No Primary Care Physician ~ Signed [facility] Work Phone: [phone] 411-454904-09-2025 [facility]04-09-2025 Consult note Author Foster Rascon [facility] Note Date/Time November 10, 2024 8:59 am [facility] Medical Records Department [address] [place] [address] Consultation 11/10/24 0857 MR#: [id number] Acct: [id number] Name: FRANKLIN ARCHULETA Rep #:[id number] : 1965 59 From: Foster Rascon MD PCP: Care Physician,No Primary Status :ADM IN Location: [facility] UWE438- 1 Consult Date of Consult: 11/10/24 59-year-old [...] later date 11/10/24 0859 <Electronically signed by Fotser Rascon MD> Cosigner Signature (if applicable): CC: No Primary Care Physician~ Signed [facility] Work Phone: [phone]) 742-320604-09-2025 [facility]04-08-2025 Progress note Author Kathie Lemos [facility] Note Date/Time November 09, 2024 9:26 pm [facility] Medical Records Department [address] [place] [address] Progress Note - Hospitalist 11/09/242120 MR#: [id number] Acct: [id number] Name: FRANKLIN ARCHULETA Rep #:[id number] : 1965 59 From: Kathie Lemos MD PCP: Care Physician,No Primary Status :ADM IN Location: [place] [address] scan w/ ascites and [...] Cosigner Signature (if applicable): CC: ~ Signed [facility] Work Phone: 1([phone]) 679-112204-08-2025 Progress note Author Kathie Lemos [facility] Note Date/Time November 09, 2024 6:54 pm [facility] Medical Records Department [address] [place] [address] Progress Note - Hospitalist 11/09/24 1850 MR#: [id number] Acct: [id number] Name: FRANKLIN ARCHULETA Rep #:[id number] : 1965 59 From: Kathie Lemos MD PCP: Care Physician,No Primary Status :ADM IN Location: [place] [address] Reason for Visit Reason for Visit: Diagnoses [...] 79.1 H, Lymph % (Auto) 8.2 L, [place] % (Auto) 8.1, Eos % (Auto) 3.0, [...] with interval NG tube removal. Reading Location: [facility] Rhythm Strip Rhythm Strip: Sinus Rhythm [...] 42 Minutes Charges/Coding Visit Charges Inpatient E&M: 05482 Subs Hosp L2 11/09/24 1489 <Electronically signed by Kathie Lemos MD> Cosigner Signature (if applicable): CC: ~ Signed [facility] Work Phone: [phone] 216-479504-08-2025 Radiology Diagnostic study [facility]04-08-2025 Radiology Diagnostic study [facility]04-07-2025 Progress note Author Kathie Lemos [facility] Note Date/Time November 08, 2024 6:26 pm [facility] Medical Records Department [address] [place] [address] Progress Note - Hospitalist 11/08/24 1441 MR#: [id number] Acct: [id number] Name: GEREMIASFRANKLINKarma CHAPA Rep #:[id number] : 1965 59 From: Kathie Lemos MD PCP: Care Physician,No Primary Status :ADM IN Location: [place] [address] Reason for Visit Reason for Visit: Diagnoses [...] 56 Minutes Charges/Coding Visit Charges Inpatient E&M: 70608 Subs Hosp L3 11/08/24 1503 <Electronically signed [...] Cosigner Signature (if applicable): cc: ~* Signed [facility] Work Phone: 1(444) 525-156804-06-2025 Progress note Author Hill Acuña [facility] Note Date/Time November 07, 2024 10:3 8am [facility] Medical Records Department [address] [place] [address] Progress Note - Hospitalist 11/07/24 0913 MR#: [id number] Acct: [id number] Name: FRANKLIN ARCHULETA Rep #:[id number] : 1965 59 From: Hill Acuña MD PCP: Care Physician,No Primary Status :ADM IN Location: [place] [address] Reason for Visit Reason for Visit: Diagnoses [...] 81.5 H, Lymph % (Auto) 6.9 L, [place] % (Auto) 6.9, Eos % (Auto) 2.3, [...] ? Requested for PT OT eval and rn social services to assist with discharge planning ? 11/05/2024; plan is for patient to be discharged home when medically stable. Patient does not qualify for home health as he currently does not have a primarycare physician he has been given a referral to [facility] Time spent in the patient's overall evaluation,decision-making process, review of diagnostic data, adjustment of management, discussion with other providers, nursing nursing and ancillary staff involved in patient's care documentation, 36 Minutes Charges/Coding Visit Charges Inpatient E&M: 56945 Subs Hosp L2 11/07/24 1038 <Electronically signed by Hill Acuña MD> Cosigner Signature (if applicable): CC: ~ Signed [facility] Work Phone: [phone] 211-520704-05-2025 Progress note Author Hill Acuña [facility] Note Date/Time November 06, 2024 10:5 7am [facility] Medical Records Department [address] [place] [address] Progress Note - Hospitalist 11/06/24 0756 MR#: [id number] Acct: [id number] Name: FRANKLIN ARCHULETA Rep #:[id number] : 1965 59 From: Hill Acuña MD PCP: Care Physician,No Primary Status :ADM IN Location: [place] [address] Reason for Visit Reason for Visit: Diagnoses [...] ? Requested for PT OT eval and rn social services to assist with discharge planning ? 11/05/2024; plan is for patient to be discharged home when medically stable. Patient does not qualify for home health as he currently does not have a primarycare physician he has been given a referral to [facility] Time spent in the patient's overall evaluation,decision-making process, review of diagnostic data, adjustment of management, discussion with other providers, nursing nursing and ancillary staff involved in patient's care documentation, 36 Minutes Charges/Coding Visit Charges Inpatient E&M: 30548 Subs Hosp L2 11/06/24 1057 <Electronically signed by Hill Acuña MD> Cosigner Signature (if applicable): CC: ~ Signed [facility] Work Phone: 1([phone]) 104-808004-04-2025 Progress note [facility] Note Date/Time November 05, 2024 9:26 am [facility] Medical Records Department [address] [place] [address] Progress Note - Hospitalist 11/05/24 0924 MR#: [id number] Acct: [id number] Name: FRANKLIN ARCHULETA Rep #:[id number] : 1965 59 From: Hill Acuña MD PCP: Care Physician,No Primary Status :ADM IN Location: [place] [address] Reason for Visit Reason for Visit: Diagnoses [...] 81.0 H, Lymph % (Auto) 6.7 L, [place] % (Auto) 7.1, Eos % (Auto) 2.3, [...] ? Requested for PT OT eval and rn social services to assist with discharge planning ? 11/05/2024; plan is for patient to be discharged home when medically stable. Patient does not qualify for home health as he currently does not have a primarycare physician he has been given a referral to [facility] Time spent in the patient's overall evaluation,decision-making process, review of diagnostic data, adjustment of management, discussion with other providers, nursing nursing and ancillary staff involved in patient's care documentation, 38 Minutes Charges/Coding Visit Charges Inpatient E&M: 62682 Subs Hosp L2 11/05/24 0986 <Electronically signed by Hill Acuña MD> Cosigner Signature (if applicable): CC: ~ Signed [facility] Work Phone: [phone]) [phone] [facility] Note Date/Time November 04, 2024 11:5 0am [facility] Medical Records Department [address] [place] [address] Progress Note - Hospitalist 11/04/24 1105 MR#: [id number] Acct: [id number] Name: FRANKLIN ARCHULETA Rep #:[id number] : 1965 59 From: Hill Acuña MD PCP: Care Physician,No Primary Status :ADM IN Location: [place] [address] Reason for Visit Reason for Visit: Diagnoses [...] 83.6 H, Lymph % (Auto) 4.9 L, [place] % (Auto) 5.9, Eos % (Auto) 1.1, [...] ? Requested for PT OT eval and rn social services to assist with discharge planning Time spent in the patient's overall evaluation,decision-making process, review of diagnostic data, adjustment of management, discussion with other providers, nursing nursing and ancillary staff involved in patient's care documentation, 38 Minutes Charges/Coding Visit Charges Inpatient E&M: 92323 Subs Hosp L2 11/04/24 1150 <Electronically signed by Hill Acuña MD> Cosigner Signature (if applicable): CC: ~ Signed [facility] Work Phone: 1([phone] 359-487804-03-2025 Progress note Author [facility] Note Date/Time November 04, 2024 6:43 am [facility] Medical Records Department [address] [place] [address] Progress Note - Hospitalist 11/04/24 0642 MR#: [id number] Acct: [id number] Name: FRANKLIN ARCHULETA Rep #:[id number] : 1965 59 From: Maria Guadalupe Shore MD PCP: Care Physician,No Primary Status :ADM IN Location: [place] [address] Hospitalist Note Patient with 15 beat asymptomatic VT. Electrolytes recently checked, mag normal range, K normal range. 11/04/2443 <Electronically signed by Maria Guadalupe Shore MD> Cosigner Signature (if applicable): CC: ~ Signed [facility] Work Phone: [phone] Progress note Author [facility] Note Date/Time November 03, 2024 10:3 8pm [facility] Medical Records Department [address] [place] [address] Progress Note - Hospitalist 11/03/242236 MR#: [id number] Acct: [id number] Name: FRANKLIN ARCHULETA Rep #:[id number] : 1965 59 From: Maria Guadalupe Shore MD PCP: Care Physician,No Primary Status :ADM IN Location: [place] [address] Hospitalist Note Patient with mildly tachycardia through the late afternoon and evening. Will administer 500 cc bolus and reassess. From review of medications not normally onBB therapy. 11/03/242237 <Electronically signed by Maria Guadalupe Shore MD> Cosigner Signature (if applicable): CC: ~ Signed [facility] Work Phone: 1([phone]) 911-818504-02-2025 Progress note Author Hill Acuña [facility] Note Date/Time November 03, 2024 10:2 7am [facility] Medical Records Department [address] [place] [address] Progress Note - Hospitalist 11/03/24 1025 MR#: [id number] Acct: [id number] Name: FRANKLIN ARCHULETA Rep #:[id number] : 1965 59 From: Hill Acuña MD PCP: Care Physician,No Primary Status :ADM IN Location: [place] [address] Reason for Visit Reason for Visit: Diagnoses [...] ? Requested for PT OT eval and rn social services to assist with discharge planning Time spent in the patient's overall evaluation,decision-making process, review of diagnostic data, adjustment of management, discussion with other providers, nursing nursing and ancillary staff involved in patient's care documentation, 38 Minutes Charges/Coding Visit Charges Inpatient E&M: 21408 Subs Hosp L2 11/03/24 1027 <Electronically signed by Hill Acuña MD> Cosigner Signature (if applicable): CC: ~ Signed [facility] Work Phone: [phone] 301-647904-01-2025 Progress note Author Hill Acuña [facility] Note Date/Time November 02, 2024 10:0 5am [facility] Medical Records Department [address] [place] [address] Progress Note - Hospitalist 11/02/24 0804 MR#: [id number] Acct: [id number] Name: GEREMIASFRANKLIN GARCIA Rep #:[id number] : 1965 59 From: Hill cAuña MD PCP: Care Physician,No Primary Status :ADM IN Location: [place] [address] Reason for Visit Reason for Visit: Diagnoses [...] 50 Minutes Charges/Coding Visit Charges Inpatient E&M: 35031 Subs Hosp L3 11/02/24 1005 <Electronically signed by Hill Acuña MD> Cosigner Signature (if applicable): CC: ~ Signed [facility] Work Phone: [phone] 278-392103-31-2025 Progress note Author Hill Acuña [facility] Note Date/Time November 01, 2024 11: 41am [facility] Medical Records Department [address] [place] [address] Progress Note - Hospitalist 11/01/24 1128 MR#: [id number] Acct: [id number] Name: FRANKLIN ARCHULETA Rep #:[id number] : 1965 59 From: Hill Acuña MD PCP: Care Physician,No Primary Status :ADM IN Location: [place] [address] Reason for Visit Reason for Visit: Diagnoses [...] 50 Minutes Charges/Coding Visit Charges Inpatient E&M: 98110 Subs Hosp L3 11/01/24 1141 <Electronically signed by Hill Acuña MD> Cosigner Signature (if applicable): CC: ~ Signed [facility] Work Phone: [phone]) [phone] Progress note Author Niranjan Li [facility] Note Date/Time November 01, 2024 8:4 4am [facility] Medical Records Department [address] [place] [address] Progress Note 11/01/24 0836 MR#: [id number] Acct: [id number] Name: FRANKLIN ARCHULETA Rep #:[id number] : 1965 59 From: Niranjan Li DO PCP: Care Physician,No Primary Status :ADM IN Location: [place] [address] Progress Note Patient has a little bit [...] doses of vancomycin. Visit Charges Inpatient E&M: 66428 Subs Hosp L3 11/01/24 0844 <Electronically signed by Niranjan Friend DO> Niarnjan Friend DO Cosigner Signature (if applicable): CC: ~ Signed [facility] Work Phone: [phone] Consult note Author Ale Renee [facility] Note Date/Time November 01, 2024 6:1 1am [facility] Medical Records Department [address] [place] [address] Pharmacokinetic/Renal -Consult 11/01/24 0604 MR#: [id number] Acct: [id number] Name: FRANKLIN ARCHULETA Rep #:[id number] : 1965 59 From: Ale Renee PCP: Care Physician,No Primary Status :ADM IN Y Location: [place] [address] Consult Antibiotic Management Pharmacy has been consulted [...] Date Hill Caro DO CC: ~ Signed [facility] Work Phone: [phone]) 133-247103-30-2025 Progress note Author Buster Fuchs [facility] Note Date/Time October 31, 2024 9:5 5am [facility] Medical Records Department [address] [place] [address] Progress Note - Hospitalist 10/31/24 0952 MR#: [id number] Acct: [id number] Name: FRANKLIN ARCHULETA Rep #:[id number] : [...] (Auto) 80.3 H, Lymph %(Auto) 5.9 L, [place] % (Auto) 7.9, Eos % (Auto) 1.5, [...] they did add IV Flagyl ? Appreciate food service assistant assistance 2. Acute metabolic cephalopathy with nonalcoholic [...] DVT: SCDs Charges/Coding Visit Charges Inpatient E&M: 94790 Subs Hosp L2 10/31/24 0955 <Electronically signed by Buster Fuchs MD> Cosigner Signature (if applicable): CC: ~ Signed [facility] Work Phone: [phone] 586-779103-30-2025 Consult note Author Foster Rascon [facility] Note Date/Time October 31, 2024 7:3 1am [facility] Medical Records Department [address] [place] [address] Consultation 10/31/24 0730 MR#: [id number] Acct: [id number] Name: FRANKLIN ARCHULETA Rep #:[id number] : [...] applicable): CC: No Primary Care Physician~ Signed [facility] Work Phone: [phone] 168-999303-30-2025 [facility]03-29-2025 Consult note Author Niranjan Li [facility] Note Date/Time October 30, 2024 9:3 4pm [facility] Medical Records Department [address] [place] [address] Consultation - GI 10/30/242047 MR#: [id number] Acct: [id number] Name: FRANKLIN ARCHULETA Rep #:[id number] : [...] of yellow-colored fluid removed. He presented backto [facility] ER complaining of abdominal pain, back pain [...] He is also on Zosyn for urosepsis. [facility] Medical History Chronic hypotension Obesity (BMI [...] 85.6 H, Lymph % (Auto) 4.3 L, [place] % (Auto) 7.3, Eos % (Auto) 0.5, [...] NG tube in satisfactory position. Reading Location: [facility] Assessment & Plan Assessment/Plan (1) Sepsis: QUALIFIERS: [...] this admission. Charges/Coding Visit Charges Inpatient E&M: 08260 Init Hosp L3 10/30/242133 <Electronically signed by Niranjan Li DO> Cosigner Signature (if applicable): CC: No Primary Care Physician~ Signed [facility] Work Phone: [phone] Consult note Author Kourtney Reece [facility] Note Date/Time October 30, 2024 4:1 2pm [facility] Medical Records Department [address] [place] [address] Pharmacokinetic/Renal -Consult 10/30/24 1552 MR#: [id number] Acct: [id number] Name: FRANKLIN ARCHULETA Rep #:[id number] : [...] monitor and adjust dosing as required. 10/30/24 2969 <Electronically signed by Kourtney Reece> Date _ Kourtney Reece 10/30/24 1612 <Electronically signed by Buster hurst MD> Cosigner Signature (if applicable): Date Buster Fuchs MD CC: ~ Signed [facility] Work Phone: [phone] Progress note Author [facility] Note Date/Time October 30, 2024 10: 45am [facility] Medical Records Department [address] [place] [address] Progress Note - Customer Account Representative 10/30/24 1037 MR#: [id number] Acct: [id number] Name: FRANKLIN ARCHULETA Rep #:[id number] : 1965 59 From: Jeff Cornelius MD PCP: Care Physician,No Primary Status :ADM [...] Lidocaine 5% Patch TOPICAL Not Given DAILY [facility] Protocol Midodrine 10 mg 10/29/24 02:00 10/30/24 [...] 85.5 H, Lymph % (Auto) 4.6 L, [place] % (Auto) 7.4, Eos % (Auto) 1.2, [...] 85.6 H, Lymph % (Auto) 4.3 L, [place] % (Auto) 7.3, Eos % (Auto) 0.5, [...] NG tube in satisfactory position. Reading Location: [facility] Assessment and Plan . Assessment and plan: [...] Cosigner Signature (if applicable): CC: ~ Signed [facility] Work Phone: [phone] Consult note Author Foster Rascon [facility] Note Date/Time October 30, 2024 9:5 8am [facility] Medical Records Department [address] [place] [address] Consultation - Urology 10/30/24 0956 MR#: [id number] Acct: [id number] Name: FRANKLIN ARCHULETA Rep #:[id number] : [...] not available on the weekend here at [facility]. We discussed transferring to other hospital for nephrostomy tube placement. We could also have a nephrostomy tube placed on Friday if radiology services are available. For now we will continue with broad-spectrum antibiotics await culture results but if things progress I think he is going to need nephrostomy tube we will continue to follow. [facility] Medical History Chronic hypotension Obesity (BMI [...] 85.5 H, Lymph % (Auto) 4.6 L, [place] % (Auto) 7.4, Eos % (Auto) 1.2, [...] 85.6 H, Lymph % (Auto) 4.3 L, [place] % (Auto) 7.3, Eos % (Auto) 0.5, [...] 3. Left-sided ureteral stent noted. [facility] 10/30/24 09:11 IMPRESSION: NG tube in satisfactory position. Reading [facility] 10/30/24957 <Electronically signed by Foster Rascon MD> Cosigner Signature (if applicable): CC: No Primary Care Physician~ Signed [facility] Work Phone: [phone] Progress note Author Buster Fuchs [facility] Note Date/Time October 30, 2024 8:2 9am [facility] Medical Records Department [address] [place] [address] Progress Note - Hospitalist 10/30/24819 MR#: [id number] Acct: [id number] Name: FRANKLIN ARCHULETA Rep #:[id number] : [...] 85.5 H, Lymph % (Auto) 4.6 L, [place] % (Auto) 7.4, Eos % (Auto) 1.2, [...] 85.6 H, Lymph % (Auto) 4.3 L, [place] % (Auto) 7.3, Eos % (Auto) 0.5, [...] 3. Left-sided ureteral stent noted. Reading Location: [facility] Rhythm Strip Rhythm Strip: Sinus Rhythm [...] antibiotics ? Cultures are pending ? Appreciate food service assistant assistance 2. Acute metabolic cephalopathy with nonalcoholic [...] DVT: SCDs Charges/Coding Visit Charges Inpatient E&M: 91942 Subs Hosp L2 10/30/24 0829 <Electronically signed by Buster Fuchs MD> Cosigner Signature (if applicable): CC: ~ Signed [facility] Work Phone: 1([phone]) 841-741003-29-2025 Radiology Diagnostic study [facility]03-28-2025 Consult note Author Foster Rascon [facility] Note Date/Time October 29, 2024 10: 32am [facility] Medical Records Department [address] [place] [address] Consultation - Urology 10/29/24 0808 MR#: [id number] Acct: [id number] Name: FRANKLIN ARCHULETA Rep #:[id number] : [...] emergency intervention is necessary from my standpoint [facility] Medical History Chronic hypotension Obesity (BMI [...] 83.0 H, Lymph % (Auto) 5.6 L, [place] % (Auto) 8.4, Eos % (Auto) 1.4, [...] vertebral body compression fracture deformities. Reading Location: [id number] 10/29/24 1032 <Electronically signed by Foster Rascon MD> Cosigner Signature (if applicable): CC: No Primary Care Physician~ Signed [facility] Work Phone: [phone] Consult note Author Bola Meraz [facility] Note Date/Time October 29, 2024 10: 24am [facility] Medical Records Department [address] [place] [address] Consultation - Customer Account Representative 10/29/24 0744 MR#: [id number] Acct: [id number] Name: FRANKLIN ARCHULETA Rep #:[id number] : [...] coverage initiated. This note was generated with Software 2000 dictation software. It may contain incorrectwords, spelling, [...] stable, without the need for vasopressor support. [facility] Medical History Chronic hypotension Obesity (BMI [...] 83.0 H, Lymph % (Auto) 5.6 L, [place] % (Auto) 8.4, Eos % (Auto) 1.4, [...] vertebral body compression fracture deformities. Reading Location: [facility] Charges/Coding Visit Charges Inpatient E&M: 91869 Init Hosp L3 10/29/24 1024 <Electronically signed by Bola Meraz DO> Cosigner Signature (if applicable): CC: No Primary Care Physician~ Signed [facility] Work Phone: 1([phone]) [phone] [facility] History and physical note Author Hill Wright [facility] Note Date/Time October 29, 2024 6:4 7am [facility] Medical Records Department [address] [place] [address] H&P Exam - Hospitalist 10/29/24 0033 MR#: [id number] Acct: [id number] Name: FRANKLIN ARCHULETA Rep #:[id number] : [...] toSeptember 02, 2024 with patient diagnosed with timvs-mi-togeswa hypotension in thesetting of acute hepatic encephalopathy [...] fluid removed who once again presents to [facility] ER complaining of abdominal pain, back pain [...] thatis expected to extend beyond 2 midnights. [facility] Medical History Chronic hypotension Obesity (BMI [...] 83.0 H, Lymph % (Auto) 5.6 L, [place] % (Auto) 8.4, Eos % (Auto) 1.4, [...] vertebral body compression fracture deformities. Reading Location: [facility] Assessment & Plan Assessment/Plan (1) Sepsis: [...] and sensitivity data. Give acetaminophen prn for dlza-cm-grrzmzwi (level 1-5/10) pain or fever. Give morphine [...] appreciated in advance. Finally, we will consult food service assistant to see this patient on-rounds in the AM for further recommendations with help appreciated in advance. 2. Admission here from August 29, 2024 to September 02, 2024 with patient diagnosed with gtfah-ml-ckujhxl hypotension in the setting of acute hepatic [...] responsive hypotension Charges/Coding Visit Charges Inpatient E&M: 65497 [facility] 10/29/24 0647 <Electronically signed by Hill Caro DO> Cosigner Signature (if applicable): CC: Dr. Hill Caro DO; No Primary Care Physician~ Signed [facility] Work Phone: [phone] 820-932503-28-2025 Consult note Author Ale Renee [facility] Note Date/Time October 29, 2024 3:3 4am [facility] Medical Records Department [address] [place] [address] Pharmacokinetic/Renal -Consult 10/29/24316 MR#: [id number] Acct: [id number] Name: GEREMIASFRANKLIN CARMELA Rep #:[id number] : [...] Date Hill Caro DO CC: ~ Signed [facility] Work Phone: 1(132) 110-188103-28-2025 Discharge summary Author Alber Dunn [facility] Note Date/Time October 29, 2024 1:0 4am [facility] Medical Records Department [address] [place] [address] Emergency Department Summary 10/28/24 MR#: [id number] Acct: [id number] Name: FRANKLIN ARCHULETA Rep #:[id number] : [...] There is a pressure was 81/50 5 uixwyv64/60 when I am in the room it [...] 83.0 H Lymph % (Auto) 5.6 L [place] % (Auto) 8.4 Eos % (Auto) 1.4 [...] Clarity Cloudy Urine pH 6.5 Ur Specific [place] 1.015 Urine Protein 500 H Urine Glucose [...] vertebral body compression fracture deformities. Reading Location: [facility] Rhythm Strip Rhythm Strip: Sinus Rhythm Rate: 83 Ectopy: None EKG Initial EKG: Attestation: I personally reviewed and interpreted this EKG as follows: Interpretation: Sinus Rhythm and No Acute Injury Pattern Comments: Normal sinus rhythm rate 83 no acute signs of [place] or ischemia. No dysrhythmia. Critical Care Time Critical Care Time: Yes Critical care time (excluding procedures): 30-74 minutes, Including time spent:,Discussing w/Patient &/or Family/Wash Plant Operator, Discussing w/Consultants, ArrangingAdmission or Transfer, Performing Direct Patient Care at Bedside and - (38 min) Discharge Plan Dx/Rx/DC Orders Clinical Impression: Chronic back pain, Chronic abdominal pain, Leukocytosis, Acute UTI, Acute hypotension, Acidosis, lactic, Sepsis Disposition Disposition: Acute Care Hospital [facility] What to do if you have Problems For any increased pain, shortness of breath, bleeding, nausea or vomiting, chestpain, or any unexpected problems, contact your Primary Care Provider. Call [facility] ([phone]) or report to the closest Emergency Room. Call 911 if necessary. 10/29/24 0104 <Electronically signed by Alber Dunn MD> Cosigner Signature (if applicable): CC: No Primary Care Physician ~ Signed [facility] Work Phone: 1([phone]) 104-941003-28-2025 Discharge summary [facility] Medical Records Department [address] [place] [address] Emergency Department Summary 10/28/24 MR#: [id number] Acct: [id number] Name: FRANKLIN ARCHULETA Rep #:[id number] : [...] Prior similar symptoms: Yes Recent Illness/Hospitalization: No [facility] Medical History Chronic hypotension Obesity (BMI 30-39.9) [...] There is a pressure was 81/50 5 qouyeh97/60 when I am in the room it [...] Currently he is stable at12:[address] [facility] blood pressure is 110/67. Spoke to the [...] 83.0 H Lymph % (Auto) 5.6 L [place] % (Auto) 8.4 Eos % (Auto) 1.4 [...] Clarity Cloudy Urine pH 6.5 Ur Specific [place] 1.015 Urine Protein 500 H Urine Glucose [...] vertebral body compression fracture deformities. Reading Location: [facility] Rhythm Strip Rhythm Strip: Sinus Rhythm Rate: 83 Ectopy: None EKG Initial EKG: Attestation: I personally reviewed and interpreted this EKG as follows: Interpretation: Sinus Rhythm and No Acute Injury Pattern Comments: Normal sinus rhythm rate 83 no acute signs of [place] or ischemia. No dysrhythmia. Critical Care Time Critical Care Time: Yes Critical care time (excluding procedures): 30-74 minutes, Including time spent:,Discussing w/Patient &/or Family/Wash Plant Operator, Discussing w/Consultants, ArrangingAdmission or Transfer, Performing Direct Patient Care at Bedside and - (38 min) Discharge Plan Dx/Rx/DC Orders Clinical Impression: Chronic back pain, Chronic abdominal pain, Leukocytosis, Acute UTI, Acute hypotension, Acidosis, lactic, Sepsis Disposition Disposition: Acute Care Hospital [facility] What to do if you have Problems For any increased pain, shortness of breath, bleeding, nausea or vomiting, chestpain, or any unexpected problems, contact your Primary Care Provider. Call [facility] ([phone]) or report tothe closest Emergency Room. Call 911 if necessary. 10/29/24 0104 Cosigner Signature (if applicable): CC: No Primary Care Physician ~ Signed [facility]03-27-2025 Radiology Diagnostic study note [facility] Imaging Services [address] [place] [address] Abdomen/Pelvis W IV Cont ONLY MR#: [id number] Acct: [id number] Name: FRANKLIN ARCHULETA Rep #: [id number] : 1965 M 59 From: Cassandra Starkey MD PCP: Care Physician,No Primary Status: REG ER Study:Abdomen/Pelvis W IV Cont ONLY Date of E xam: 10/28/24 Exam# [id number] Ordering Dr: Tee uDnn MD PROCEDURE: ABDOMEN/PELVIS W IV CONT ONLY [...] vertebral body compression fracture deformities. Reading Location: [id number] CC: Dr. Alber Dunn MD; No Primary Care Physician ~ Journeyman Pressman: Signed [facility]03-27-2025 Discharge summary Author Alber Dunn [facility] Note Date/Time October 29, 2024 1:0 4am [facility] Medical Records Department [address] [place] [address] Emergency Department Summary 10/28/24 MR#: [id number] Acct: [id number] Name: FRANKLIN ARCHULETA Rep #:[id number] : [...] There is a pressure was 81/50 5 /60 when I am in the room it [...] 83.0 H Lymph % (Auto) 5.6 L [place] % (Auto) 8.4 Eos % (Auto) 1.4 [...] Clarity Cloudy Urine pH 6.5 Ur Specific [place] 1.015 Urine Protein 500 H Urine Glucose [...] vertebral body compression fracture deformities. Reading Location: [facility] Rhythm Strip Rhythm Strip: Sinus Rhythm Rate: 83 Ectopy: None EKG Initial EKG: Attestation: I personally reviewed and interpreted this EKG as follows: Interpretation: Sinus Rhythm and No Acute Injury Pattern Comments: Normal sinus rhythm rate 83 no acute signs of [place] or ischemia. No dysrhythmia. Critical Care Time Critical Care Time: Yes Critical care time (excluding procedures): 30-74 minutes, Including time spent:,Discussing w/Patient &/or Family/Wash Plant Operator, Discussing w/Consultants, ArrangingAdmission or Transfer, Performing Direct Patient Care at Bedside and - (38 min) Discharge Plan Dx/Rx/DC Orders Clinical Impression: Chronic back pain, Chronic abdominal pain, Leukocytosis, Acute UTI, Acute hypotension, Acidosis, lactic, Sepsis Disposition Disposition: Acute Care Hospital [facility] What to do if you have Problems For any increased pain, shortness of breath, bleeding, nausea or vomiting, chestpain, or any unexpected problems, contact your Primary Care Provider. Call [facility] ([phone]) or report to the closest Emergency Room. Call 911 if necessary. 10/29/24 0104 <Electronically signed by Alber Dunn MD> Cosigner Signature (if applicable): CC: No Primary Care Physician ~ Signed [facility] Work Phone: 1(561) 925-759203-03-2025 Procedure note* Joey Huang DO - 10/04/2024 5:17 PM ESTAssociated Order(s): Paracentesis Post-Procedure Diagnose(s): Other ascites Paracentesis Date/Time: 10/04/2024 5:17 PM Performed by: Joey Huang DO Authorized by: Joey Huang DO Consent: Consent obtained: Written Consent given by: Patient Risks, benefits, and alternatives were discussed: yes Risks discussed: Bleeding, bowel perforation and infection Alternatives discussed: No treatment Mckee protocol: Procedure explained and questions answered to [...] Adhesive bandage Post-procedure details: Procedure completion: Tolerated [facility] Work Phone: [phone]) 804-736603-03-2025 Procedure note* Joey Huang DO - 10/04/2024 5:17 PM ESTAssociated Order(s): Paracentesis Post-Procedure Diagnose(s): Other ascites Paracentesis Date/Time: 10/04/2024 5:17 PM Performed by: Joey Huang DO Authorized by: Joey Huang DO Consent: Consent obtained: Written Consent given by: Patient Risks, benefits, and alternatives were discussed: yes Risks discussed: Bleeding, bowel perforation and infection Alternatives discussed: No treatment Mckee protocol: Procedure explained and questions answered to [...] details: Procedure completion: Tolerated documented in this [facility] Work Phone: 1([phone]) 127-785503-03-2025 Consult note* Joey Huang, DO - 10/04/2024 5:13 PM EST Reason For Consult Ascites History Of Present Illness Franklin Archuleta is a 59 y.o. male presenting with abdominal pain. He presented to the emergency room from [facility] secondary to increasing abdominal girth pain and ascites He was recently drained at [facility] for his ascites His abdomen is hurting [...] call Assessment & Plan Joey Huang DO [facility] Work Phone: [phone]) [phone] Consult note* Joey Huang DO - 10/04/2024 5:13 PM EST Reason For Consult Ascites History Of Present Illness Franklin Archuleta is a 59 y.o. male presenting with abdominal pain. He presented to the emergency room from [facility] secondary to increasing abdominal girth pain and ascites He was recently drained at [facility] for his ascites His abdomen is hurting [...] Plan Joey Huang DO documented in this [facility] Work Phone: [phone]) 615-762503-03-2025 Physician Emergency department Note* Sriram Oleary PA-C [...] Abnormality Status --------- ------ Urinalysis with Reflex C...[[id number]] Extra Urine Garvey Tube[[id number]] Please view results for these tests on the individual orders. URINALYSIS WITH REFLEX CULTURE AND MICROSCOPIC EXTRA URINE GARVEY TUBE PH, BODY FLUID LACTATE DEHYDROGENASE, BODY FLUID Narrative: The following orders were created for panel order Lactate Dehydrogenase, Body Fluid. Procedure Abnormality Status --------- ------ Lactate Dehydrogenase, B...[[id number]] In process Please view results for these tests on the individual orders. GLUCOSE, BODY FLUID Narrative: The following orders were created for panel order Glucose, Body Fluid. Procedure Abnormality Status --------- ------ Glucose, Body Fluid[[id number]] In process Please view results for these tests on the individual orders. PROTEIN, TOTAL, BODY FLUID Narrative: The following orders were created for panel order Protein, Total, Body Fluid. Procedure Abnormality Status --------- ------ Protein, Total, Body Fluid[[id number]] In process Please view results for these tests on the individual orders. BODY FLUID CELL COUNT WITH DIFFERENTIAL Narrative: The following orders were created for panel order Body Fluid Cell Count With Differential. Procedure Abnormality Status --------- ------ Body Fluid Cell Count[[id number]] In process Body Fluid Differential[[id number]] In process Please view results for these tests on the individual orders. ALBUMIN, BODY FLUID Narrative: The following orders were created for panel order Albumin, Body Fluid. Procedure Abnormality Status --------- ------ Albumin, Body Fluid[[id number]] In process Please view results for these [...] Yohana Huang 10/04/2024 2:28 PM Dictation workstation: [id number] Procedures Medical Decision Making Patient is a 59-year-old male with a hx of cirrhosis who presents to the emergency department with a chief complaint of abdominal pain from [facility]. He reports increased abdominal pain that he describes as generalized, states that his abdomen is distended. Recently had a paracentesis performed at [facility] on September 29. Patient reports that he [...] cirrhosis type (Multi) Sriram Oleary PA-C 10/04/241736 [facility] Work Phone: [phone]) 737-646903-03-2025 Emergency department Note* Sriram Oleary PA-C - [...] Abnormality Status --------- ------ Urinalysis with Reflex C...[[id number]] Extra Urine Garvey Tube[[id number]] Please view results for these tests on the individual orders. URINALYSIS WITH REFLEX CULTURE AND MICROSCOPIC EXTRA URINE GARVEY TUBE PH, BODY FLUID LACTATE DEHYDROGENASE, BODY FLUID Narrative: The following orders were created for panel order Lactate Dehydrogenase, Body Fluid. Procedure Abnormality Status --------- ------ Lactate Dehydrogenase, B...[[id number]] In process Please view results for these tests on the individual orders. GLUCOSE, BODY FLUID Narrative: The following orders were created for panel order Glucose, Body Fluid. Procedure Abnormality Status --------- ------ Glucose, Body Fluid[[id number]] In process Please view results for these tests on the individual orders. PROTEIN, TOTAL, BODY FLUID Narrative: The following orders were created for panel order Protein, Total, Body Fluid. Procedure Abnormality Status --------- ------ Protein, Total, Body Fluid[[id number]] In process Please view results for these tests on the individual orders. BODY FLUID CELL COUNT WITH DIFFERENTIAL Narrative: The following orders were created for panel order Body Fluid Cell Count With Differential. Procedure Abnormality Status --------- ------ Body Fluid Cell Count[[id number]] In process Body Fluid Differential[[id number]] In process Please view results for these tests on the individual orders. ALBUMIN, BODY FLUID Narrative: The following orders were created for panel order Albumin, Body Fluid. Procedure Abnormality Status --------- ------ Albumin, Body Fluid[[id number]] In process Please view results for these [...] Yohana Huang 10/04/2024 2:28 PM Dictation workstation: [id number] Procedures Medical Decision Making Patient is a 59-year-old male with a hx of cirrhosis who presents to the emergency department with a chief complaint of abdominal pain from [facility]. He reports increased abdominal pain that he describes as generalized, states that his abdomen is distended. Recently had a paracentesis performed at [facility] on September 29. Patient reports that he [...] Oleary PA-C 10/04/24 1737 documented in this [facility] Work Phone: 1(842) 974-449602-26-2025 Procedure note [facility] Medical Records Department [address] [place] [address] Operative Report 09/29/24 1048 MR#: [id number] Acct: [id number] Name: FRANKLIN ARCHULETA Rep #:[id number] : 1965 59 From: Jasmine carranza NP WATCHMAKING TEACHER-C PCP: Care Physician,No Primary Status :REG CLI Location: [place] Problems Associated Problem List Diagnoses (1) Abdominal ascites: Multi Select Codes Radiology Radiology US Procedures: 68190 Paracentesis Operative Report (Standard) Operative Information Date of Procedure: 09/29/24 Pre-Operative Diagnosis: Abdominal ascites Post-Operative Diagnosis: Abdominal ascites Surgery/Procedure Performed: Ultrasound-guided paracentesis machine helper: No Type of Anesthesia: Local Procedure Start Time: 09:55 Procedure Stop Time: 10:17 Select all DRAINS/GRAFTS/IMPLANTS that apply: None Estimated Blood Loss: 0 Specimen collected: No Description of surgery: PROCEDURE: Ultrasound guided paracentesis ORDERING PROVIDER: Diane Callahan NP INDICATION: Male, 59 years old. Abdominal ascites. PROVIDER: Jasmine Morocho AUTOMATIC DRY STARCH OPERATOR TECHNIQUE: The risks, benefits, and alternatives to [...] the peritoneal cavity was accessed with a 5-Polish paracentesis needle/catheter system. The trocar was removed. [...] 09/29/24 1053 Cosigner Signature (if applicable): CC: WATCHMAKING TEACHER-C Jasmine Morocho; No Primary Care Physician; DIANE CALLAHAN~ Signed [facility]02-11-2025 [facility]02-02-2025 Evaluation note* Diagnosis Onset Date Resolution Status [...] 2024 12:43am Chronic abdominal pain chronic [facility] 2024 12:43am Chronic back pain [...] 6:06am Fall acute January 02, 2025 6:06am [facility] Work Phone: 1([phone]) 849-398901-30-2025 [facility]01-27-2025 Evaluation note* Diagnosis Onset Date Resolution Status [...] Abdominal ascites acute Februar y 2024 9:35am [facility] Work Phone: [phone]) 429-843201-27-2025 Evaluation note* Diagnosis Onset Date Resolution Status [...] 29 12:43am Chronic abdominal pain chronic [facility] 2024 12:43am Chronic back pain chronic October 032024 12:43am [facility] Work Phone: [phone] 196-404501-27-2025 Evaluation note* Diagnosis Onset Date Resolution Status [...] 29 12:43am Chronic abdominal pain chronic [facility] 2024 12:43am Chronic back pain chronic October 032024 12:43am [facility] Work Phone: [phone] Evaluation note* Diagnosis Onset Date Resolution Status [...] 29, 2024 12:43am Obesity (BMI 30.0-34.9) acute [facility] 2024 12:43am Chronic abdominal pain chronic [facility] 2024 12:43am Chronic back pain chronic October [...] 4:28am Staghorn calculus acute November 032024 4:28am [facility] Work Phone: [phone] 457-927801-27-2025 Evaluation note* Diagnosis Onset Date Resolution Status [...] infection) resolv ed November 28, 2024 4:51pm [facility] Work Phone: Discharge summary Author Herberth Carlson [facility] Note Date/Time November 21, 2024 4:1 6am [facility] Medical Records Department [address] [place] [address] Emergency Department Summary 11/21/24 MR#: [id number] Acct: [id number] Name: GEREMIASFRANKLIN Rep #:[id number] : 1965 [...] toilet after multiple attempts over couple hours. [facility] Medical History Diarrhea Sepsis Acidosis, lactic Acute [...] (Auto) 68.7 Lymph % (Auto) 13.9 L [place] % (Auto) 9.2 Eos % (Auto) 7.2 [...] Sl Cldy Urine pH 6.0 Ur Specific [place] 1.015 Urine Protein 500 H Urine Glucose [...] process. Follow-up to resolution recommended. Reading [facility] Management Discussion w/another healthcare provider: Hospitalist [...] Primary [Primary Care Provider] - Print Language: Citizen Of [place] Disposition Disposition: Acute Care Hospital [facility] What to do if you have Problems For any increased pain, shortness of breath, bleeding, nausea or vomiting, chestpain, or any unexpected problems, contact your Primary Care Provider. Call [facility] ([phone]) or report to the closest Emergency Room. Call 911 if necessary. 11/21/24 0416 <Electronically signed by Herberth Carlson MD> Cosigner Signature (if applicable): CC: No Primary Care Physician ~ Signed [facility] Work Phone: Discharge summary Author Mina Blood [facility] Note Date/Time December 30, 2024 5:19a m [facility] Medical Records Department [address] [facility] [place] [address] Emergency Department Summary 12/30/24 MR#: [id number] Acct: [id number] Name: FRANKLIN ARCHULETA Rep #:[id number] : [...] recent trauma prior to the pain beginning. [facility] Medical History Weakness Diarrhea Sepsis Acidosis, lactic [...] (Auto) 69.7 Lymph % (Auto) 14.0 L [place] % (Auto) 9.1 Eos % (Auto) 6.2 [...] Clarity Cloudy Urine pH 6.5 Ur Specific [place] 1.010 Urine Protein 100 H Urine Glucose [...] you have any further concerns Print Language: Citizen Of [place] Disposition Disposition: Home, Self Care What to do if you have Problems For any increased pain, shortness of breath, bleeding, nausea or vomiting, chestpain, or any unexpected problems, contact your Primary Care Provider. Call [facility] ([phone]) or report to the closest Emergency Room. Call 911 if necessary. 12/30/24 0519 <Electronically signed by Mina Blood DO> Cosigner Signature (if applicable): CC: YG Elias ~ Signed [facility] Work Phone: Discharge summary Author Roddy Reeves [facility] Note Date/Time January 02, 2025 6:00a m [facility] Medical Records Department [address] [place] [address] Emergency Department Summary 01/02/25 MR#: [id number] Acct: [id number] Name: FRANKLIN ARCHULETA Rep #:[id number] : [...] was here recently and was sent home. [facility] Medical History Weakness Diarrhea Sepsis Acidosis, lactic [...] Patient following commands that he was at [facility] that wewere in the end of December [...] (Auto) 68.0 Lymph % (Auto) 12.2 L [place] % (Auto) 11.9 H Eos % (Auto) [...] Clarity Turbid Urine pH 6.0 Ur Specific [place] 1.015 Urine Protein 100 H Urine Glucose [...] NP-C [Primary Care Provider] - Print Language: Citizen Of [place] Disposition Disposition: Acute Care Hospital [facility] What to do if you have Problems For any increased pain, shortness of breath, bleeding, nausea or vomiting, chestpain, or any unexpected problems, contact your Primary Care Provider. Call [facility] ([phone]) or report to the closest Emergency Room. Call 911 if necessary. 01/02/25 0600 <Electronically signed by Roddy Reeves DO> Cosigner Signature (if applicable): CC: WATCHMAKING TEACHER-C Josy Elias ~ Signed [facility] Work Phone: Evaluation note* Diagnosis Other ascites- Primary Abdominal pain, generalized Cirrhosis of liver with ascites, unspecified hepatic cirrhosis type (Multi) Peripheral edema Edema Coagulopathy (Multi) Other and unspecified coagulation defects Hyperbilirubinemia Disorders of bilirubin excretion documented in this encounter [facility] Work Phone: Evaluation note* Diagnosis Metabolic dysfunction-associated steatohepatitis (MASH)- Primary [facility]* Diagnosis Liver transplant candidate- Primary Metabolic dysfunction-associated steatohepatitis (MASH) [facility]* Diagnosis Pre-transplant evaluation for liver transplant- Primary [facility] encounter [facility]* Diagnosis Liver transplant candidate- Primary Pre-operative clearance Preoperative examination, unspecified [facility]* Diagnosis Screening for genitourinary condition Screening for other and unspecified genitourinary condition [facility] Buster Fuchs [facility] Note Date/Time January 02, 2025 6:44a m [facility] Medical Records Department [address] [place] [address] H&P Exam - Hospitalist 01/02/25 0556 MR#: [id number] Acct: [id number] Name: FRANKLIN ARCHULETA Rep #:[id number] : 1965 59 From: Buster duarte MD PCP: YG Pena Status:ADM I N Location: [place] [id number] HPI - General General Date of [...] At that time he was transferred to [facility] 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 Was not considered to be a liver transplant candidate and was placed on anticoagulation. He has had a couple of readmissions for weakness and debility. [place] to possibly have aUTI given a staghorn [...] Heis receiving potassium infusion in the ER. [facility] Medical History Weakness Diarrhea Sepsis Acidosis, [...] (Auto) 68.0, Lymph % (Auto) 12.2 L, [place] % (Auto) 11.9 H, Eos % (Auto) [...] once verified Charges/Coding Visit Charges Inpatient E&M: 13822 Init Hosp L2 01/02/25 0644 <Electronically signed by Buster Fuchs MD> Cosigner Signature (if applicable): CC: YG Elias; Dr. Buster Fuchs MD~ Signed [facility] Work Phone: Hospital Discharge instructions* Attachments The following attachments cannot be sent through Care Everywhere. * Cirrhosis (Citizen Of [place]) * Abdominal pain (Citizen Of [place]) documented in this [facility] Work Phone: Hospital Discharge instructions Additional Instructions [...] the ER should you have any further concernsW[facility] Work Phone: Reason for referral (narrative)No reason for referral information availableWVan Wert County Hospital Work Phone: Summary Purpose Family History [...] Will No August 21 2:51pm Power of Protection Analyst No August 21, 2024 2:51pm Living Will No August 30 12:39am Power of Protection Analyst No August 30, 2024 12:39am Living Will No September 05 4:42am Power of Protection Analyst No September 05, 2024 4:42am Advance Directive Response Recorded Date/ Time Living Will No August 21 2:51pm Do you have a Healthcare Power of Protection Analyst? No August 21, 2024 2:51pm Living Will No August 30 12:39am Do you have a Healthcare Power of Protection Analyst? No August 30, 2024 12:39am Living Will No September 05 4:42am Do you have a Healthcare Power of Protection Analyst? No September 05, 2024 4:42am Living Will No October 28, 2024 5:24pm Do you have a Healthcare Power of Protection Analyst? No October 28, 2024 5:24pm Advance Directive Response Recorded Date/ Time Living Will No August 21 2:51pm Do you have a Healthcare Power of Protection Analyst? No August 21, 2024 2:51pm Living Will No August 30 12:39am Do you have a Healthcare Power of Protection Analyst? No August 30, 2024 12:39am Living Will No September 05 4:42am Do you have a Healthcare Power of Protection Analyst? No September 05, 2024 4:42am Living Will No October 29, 2024 1:46am Do you have a Healthcare Power of Protection Analyst? No October 29, 2024 1:46am Date Activated Date Inactivated Comments 11/11/2024 7:22 AM Question Answer Comments Full Code Order Discussed With: Patient Date Activated Date Inactivated Comments 11/11/2024 7:22 AM Advance Directive Response Recorded Date/ Time Living Will No August 21 2:51pm Do you have a Healthcare Power of Protection Analyst? No August 21, 2024 2:51pm Living Will No August 30 12:39am Do you have a Healthcare Power of Protection Analyst? No August 30, 2024 12:39am Living Will No September 05 4:42am Do you have a Healthcare Power of Protection Analyst? No September 05, 2024 4:42am Living Will No October 29, 2024 1:46am Do you have a Healthcare Power of Protection Analyst? No October 29, 2024 1:46am Living Will Yes November 21, 2024 1:32am Do you have a Healthcare Power of Protection Analyst? Yes November 21, 2024 1:32am Name of Medical Power of Protection Analyst anne Hernandez November 21, 2024 1:32am Advance Directive Response Recorded Date/ Time Living Will No August 21 2:51pm Do you have a Healthcare Power of Protection Analyst? No August 21, 2024 2:51pm Living Will No August 30 12:39am Do you have a Healthcare Power of Protection Analyst? No August 30, 2024 12:39am Living Will No September 05 4:42am Do you have a Healthcare Power of Protection Analyst? No September 05, 2024 4:42am Living Will No October 29, 2024 1:46am Do you have a Healthcare Power of Protection Analyst? No October 29, 2024 1:46am Living Will Yes November 21, 2024 5:32am Do you have a Healthcare Power of Protection Analyst? Yes November 21, 2024 5:32am Name of Medical Power of Protection Analyst anne Hernandez November 21, 2024 5:32am Do you have a Healthcare Power of Protection Analyst? No November 28, 2024 5:49pm Advance Directive Response Recorded Date/ Time Living Will No August 30 12:39am Do you have a Healthcare Power of Protection Analyst? No August 30, 2024 12:39am Living Will No September 05 4:42am Do you have a Healthcare Power of Protection Analyst? No September 05, 2024 4:42am Living Will No October 29, 2024 1:46am Do you have a Healthcare Power of Protection Analyst? No October 29, 2024 1:46am Living Will Yes November 21, 2024 5:32am Do you have a Healthcare Power of Protection Analyst? Yes November 21, 2024 5:32am Name of Medical Power of Protection Analyst anne Hernandez November 21, 2024 5:32am Do you have a Healthcare Power of Protection Analyst? No November 28, 2024 5:49pm Advance Directive Response Recorded Date/ Time Living Will No August 30 12:39am Do you have a Healthcare Power of Protection Analyst? No August 30, 2024 12:39am Living Will No September 05 4:42am Do you have a Healthcare Power of Protection Analyst? No September 05, 2024 4:42am Living Will No October 29, 2024 1:46am Do you have a Healthcare Power of Protection Analyst? No October 29, 2024 1:46am Living Will Yes November 21, 2024 5:32am Do you have a Healthcare Power of Protection Analyst? Yes November 21, 2024 5:32am Name of Medical Power of Protection Analyst anne Hernandez November 21, 2024 5:32am Do you have a Healthcare Power of Protection Analyst? No November 28, 2024 5:49pm Do you have a Healthcare Power of Protection Analyst? No December 26, 2024 10:02am Advance Directive Response Recorded Date/ Time Living Will No August 30 12:39am Do you have a Healthcare Power of Protection Analyst? No August 30, 2024 12:39am Living Will No September 05 4:42am Do you have a Healthcare Power of Protection Analyst? No September 05, 2024 4:42am Living Will No October 29, 2024 1:46am Do you have a Healthcare Power of Protection Analyst? No October 29, 2024 1:46am Living Will Yes November 21, 2024 5:32am Do you have a Healthcare Power of Protection Analyst? Yes November 21, 2024 5:32am Name of Medical Power of Protection Analyst anne Hernandez November 21, 2024 5:32am Do you have a Healthcare Power of Protection Analyst? No November 28, 2024 5:49pm Do you have a Healthcare Power of Protection Analyst? No December 26, 2024 10:02am Do you have a Healthcare Power of Protection Analyst? No December 30, 2024 1:06am Advance Directive Response Recorded Date/ Time Do you have a Healthcare Power of Protection Analyst? No January 02, 2025 2:59am Living Will No September 05 4:42am Do you have a Healthcare Power of Protection Analyst? No September 05, 2024 4:42am Living Will No October 29, 2024 1:46am Do you have a Healthcare Power of Protection Analyst? No October 29, 2024 1:46am Living Will Yes November 21, 2024 5:32am Do you have a Healthcare Power of Protection Analyst? Yes November 21, 2024 5:32am Name of Medical Power of Protection Analyst anne Hernandez November 21, 2024 5:32am Do you have a Healthcare Power of Protection Analyst? No November 28, 2024 5:49pm Do you have a Healthcare Power of Protection Analyst? No December 26, 2024 10:02am Do you have a Healthcare Power of Protection Analyst? No December 30, 2024 1:06am Advance Directive Response Recorded Date/ Time Do you have a Healthcare Power of Protection Analyst? No January 02, 2025 8:14am Living Will No September 05 4:42am Do you have a Healthcare Power of Protection Analyst? No September 05, 2024 4:42am Living Will No October 29, 2024 1:46am Do you have a Healthcare Power of Protection Analyst? No October 29, 2024 1:46am Living Will Yes November 21, 2024 5:32am Do you have a Healthcare Power of Protection Analyst? Yes November 21, 2024 5:32am Name of Medical Power of Protection Analyst anne Hernandez November 21, 2024 5:32am Do you have a Healthcare Power of Protection Analyst? No November 28, 2024 5:49pm Do you have a Healthcare Power of Protection Analyst? No December 26, 2024 10:02am Do you have a Healthcare Power of Protection Analyst? No December 30, 2024 1:06am Chief Complaint [...] 10:48am SEPSIS, UTI, DIARRHEA & ABDOMINAL PAIN [facility] 2024 12:43am Reason for Visit Admit Date [...] August 21, 2024 1 :49pm HEPATIC ENCEPHALOPATHY, ISAEBL, HYPOTENSION August 29, 2024 10:09pm HEPATIC ENCEPHALOPATHY, [...] History of uric acid staghorn calculus [facility] 2024 12:43am Hyponatremia October 29, 2024 12: [...] 7:41am UTI AND LEFT ABDOMINAL WALL CELLULITIS [facility] 2024 11:10am ABD PAIN December 15, 2024 [...] Thrombus Procedures Evaluate and treat HOSP MAIN [id number] [place] [address] Phone: tel: Referral ID Status Reason Start Date Expiration Date Visits Re quested Visits Authorized [id number] 1 1 Reason Comments Abdominal Pain Patient [...] Active Start : August 30, 2024 Dr. Betyt Pruett MD Other Provider Active Star t: [...] Active St art: August 30, 2024 Dr. Anle Casey MD Other Provider Active Start: August [...] Provider Active Start: September 07, 2024 Dr. Josefnia Khan MD Other Provider Active Start: September [...] Active Start: September 12, 2024 Dr. Thai Thurston MD Other Provider Active Start: September 12, [...] Other Provider Active Start: 2024 Jasmine Morocho WATCHMAKING TEACHER, WATCHMAKING TEACHER-C Attending Provider Active Start: September 29, 2024 [...] 2024 End: November 11, 2024 Dr. Juan aDniel Garza MD Other Provider Active Start: [facility] 2024 End: November 11, 2024 Dr. Zachariah Glover MD Other Provider Active Sta rt: October 29, 2024 End: November 11, 2024 Dr. Scott Weston , Other Provider Active Sta rt: October 29, 2024 End: November 11, 2024 Yue Delgadillo WATCHMAKING TEACHER, WATCHMAKING TEACHER-C Other Provider Active St art: October 29, [...] Star t: October 30, 2024 Dr. Gwendolyn Logna MD Other Provider Active Sta rt: October [...] November 01, 2024 Dr. Hill Acuña MD Attending Provider Active Start: November 01, [...] Active Start: November 10, 2024 Dr. Blair aCge MD Other Provider Active Start : November [...] Sta rt: November 10, 2024 Yue Delgadillo WATCHMAKING TEACHER, WATCHMAKING TEACHER-C Other Provider Active St art: November 10, [...] Provider Active Start: November 25, 2024 Dr. Anuarg Irene MD Attending Provider Active Start: November [...] Provider Active Start: November 30, 2024 Dr. Kathie Lemos MD Admit Provider [...] December 07, 2024 End: December 07, 2024 Facilities Custodian Relationship Specialty Start Date End Date Maurice Fitch MD [address] [place] [address] PCP - General Internal Medicine 09/21/24 Team [...] Provider Active Start: November 21, 2024 Dr. Jea Ash , Attending Provider Active Start: November [...] Inactive Member Role Status Dates Josy Elias WATCHMAKING TEACHER-C Primary Care Provider Active Start: December 26, 2024 End: December 26, 2024 Dr. Boone Carvajal , Emergency Provider Active Start: December 26, 2024 End: December 26, 2024 Team Status: Inactive Member Role Status Dates Josy Elias WATCHMAKING TEACHER-C Primary Care Provider Active Start: December 30, 2024 End: December 30, 2024 Dr. Mina Blood , Emergency Provider Active Start: December 30, 2024 End: December 30, 2024 Team Status: Inactive Member Role Status Dates Josy Elias WATCHMAKING TEACHER-C Primary Care Provider Active Start: December 26, 2024 End: December 26, 2024 Dr. Boone Carvajal DO Attending Provider Active Start: December 26, 2024 End: December 26, 2024 Dr. Boone Carvajal DO Emergency Provider Active Start: December 26, 2024 End: December 26, 2024 Team Status: Active Member Role Status Dates Josy Elias WATCHMAKING TEACHER-C Primary Care Provider Active Start: January 02, 2025 Dr. Roddy Reeves DO Emergency Provider Active Start: January 02, 2025 Dr. Buster Fuchs MD Admit Provider Active Start: January 02, 2025 Dr. Buster Fuchs MD Attending Provider Active Start: January 02, 2025 Dr. Buster Fuchs MD Other Provider Active Start: January 02, 2025 Team Status: Inactive Member Role Status Dates Josy Elias WATCHMAKING TEACHER-C Primary Care Provider Active Start: January 02, [...] Active Member Role Status Dates Josy Elias WATCHMAKING TEACHER-C Primary Care Provider Active Start: January 03, [...] Active Member Role Status Dates Josy Elias WATCHMAKING TEACHER-C Primary Care Provider Active Start: January 04, [...] section and content) DATE CREATED AUTHOR 10/10/2024 [facility] DATE CREATED AUTHOR AUTHOR'S ORGANIZ ATION 12/13/2024 [facility] DATE CREATED AUTHOR AUTHOR'S ORGANIZ ATION 01/07/2025 [facility] Source Comments (unrecognize d section and content) In the event this informatio n is protected by the Federal Confidentiality of Alcohol and Drug Abuse Patient Records regulations: The Federal rules restrict any use of the information to criminally investigate or prosecute any alcohol or drug abuse patient.[facility] Hospital[facility] the event this information is protected by the Federal Confidentiality of Alcohol and Drug Abuse Patient Records regulations: The Federal rules restrict any use of the information to criminally investigate or prosecute any alcohol or drug abuse patient.[facility] HospitalIn the event this information is protected by the Federal Confidentiality of Alcohol and Drug Abuse Patient Records regulations: The Federal rules restrict any use of the information to criminally investigate or prosecute any alcohol or drug abuse patient.[facility] HospitalIn the event this information is protected by the Federal Confidentiality of Alcohol and Drug Abuse Patient Records regulations: The Federal rules restrict any use of the information to criminally investigate or prosecute any alcohol or drug abuse patient.[facility] HospitalIn the event this information is protected by the Federal Confidentiality of Alcohol and Drug Abuse Patient Records regulations: The Federal rules restrict any use of the information to criminally investigate or prosecute any alcohol or drug abuse patient.[facility] HospitalIn the event this information is protected by the Federal Confidentiality of Alcohol and Drug Abuse Patient Records regulations: The Federal rules restrict any use of the information to criminally investigate or prosecute any alcohol or drug abuse patient.[facility] HospitalIn the event this information is protected by the Federal Confidentiality of Alcohol and Drug Abuse Patient Records regulations: The Federal rules restrict any use of the information to criminally investigate or prosecute any alcohol or drug abuse patient.[facility] HospitalIn the event this information is protected by the Federal Confidentiality of Alcohol and Drug Abuse Patient Records regulations: The Federal rules restrict any use of the information to criminally investigate or prosecute any alcohol or drug abuse patient.[facility] HospitalIn the event this information is protected by the Federal Confidentiality of Alcohol and Drug Abuse Patient Records regulations: The Federal rules restrict any use of the information to criminally investigate or prosecute any alcohol or drug abuse patient.[facility] HospitalIn the event this information is protected by the Federal Confidentiality of Alcohol and Drug Abuse Patient Records regulations: The Federal rules restrict any use of the information to criminally investigate or prosecute any alcohol or drug abuse patient.[facility] HospitalIn the event this information is protected by the Federal Confidentiality of Alcohol and Drug Abuse Patient Records regulations: The Federal rules restrict any use of the information to criminally investigate or prosecute any alcohol or drug abuse patient.[facility] FOR RECORDS PERTAINING TO PATIENTS WHO [...] BE BASED ON THE PRIMARY CLINICAL RECORDS. [facility] [employer] [facility]. provides no warranty or guarantee of the accuracy or completeness of information in this document.
[2025-01-09 15:29] LABS: CPK Total, Creatine Kinase 34 U/L (24-195)
--- NOTE | 2025-01-09 16:02 | PCM.RX.CS ---
Consult Antibiotic Management Pharmacy has been consulted to manage selected antibiotic: Vancomycin Type of Intervention Type of Consult: Follow-up Suspected Infection Suspected Infection: Other (EMPIRIC) Prior Doses of Antibiotics Prior Doses of Antibiotics Received/Current Regimen: Vancomycin 2000 mg IV x 1 give in ER 01/09/25 @ 1422 Labs Labs: Sodium 129 mmol/L (133-145) L 01/09/25 10:40 Potassium 3.6 mmol/L (3.3-5.1) 01/09/25 10:40 Chloride 103 mmol/L (98-108) 01/09/25 10:40 Carbon Dioxide 13.6 mmol/L (21.0-32.0) L 01/09/25 10:40 Anion Gap 13 (5-15) 01/09/25 10:40 BUN 24 mg/dL (4-19) H 01/09/25 10:40 Creatinine 1.77 mg/dL (0.70-1.20) H 01/09/25 10:40 Est GFR (MDRD) Non-Af 44 (>60) L 01/09/25 10:40 BUN/Creatinine Ratio 13.4 RATIO (10-20) 01/09/25 10:40 Glucose 149 mg/dL (70-99) H 01/09/25 10:40 Dosing Weight Weight used for dosin kg Estimated Creatinine Clearance Estimated Creatinine Clearance: ~ 51 Goal Trough Goal Trough: 15-20 mcg/mL Pharmacy Plan for Drug Dosing Pharmacy Plan for Drug Dosing: Vancomycin 2000 mg IV x 1 followed by 1000 mg Q12H Pharmacy Service will continue to monitor and adjust dosing as required. Follow-Up Labs Follow-Up Labs: Trough: Vancomycin Date/Time Labs Ordered Labs to be done on [date and time ordered]: 01/11/25 @ 0131
[2025-01-09 16:32] LABS: Bedside Glucose 99 mg/dL (74-106)
[2025-01-09] MEDS: Midodrine HCl 5 MG Tablet 10 MG PO (17:10)
[2025-01-09 18:21] LABS: M R Staph aureus DNA By PCR Negative (Negative); Probe Check PASS; Specimen Processing Control PASS
[2025-01-09 18:24] LABS: Anion Gap 11 (5-15); BUN 25 mg/dL (4-19); BUN/Creat Ratio 13.8 RATIO (10-20); Calcium,Total 7.7 mg/dL (7.6-11.0); Carbon Dioxide 14.1 mmol/L (21.0-32.0); Chloride 106 mmol/L (98-108); Creatinine, Serum 1.78 mg/dL (0.70-1.20); EST Glomerular Filtration Rate 44 (>60); Estimated Creatinine Clearance 50.08 ml/min (50-250); Glucose 119 mg/dL (70-99); Potassium 3.7 mmol/L (3.3-5.1); Sodium Level 132 mmol/L (133-145)
[2025-01-09 18:30] LABS: Lactic Acid 2.4 mmol/L (0.0-2.0)
--- NOTE | 2025-01-09 18:36 | CON.PCM.CC_ITS ---
HPI Consult Data Date of Consult: 01/09/25 HPI Narrative HPI Narrative: FRANKLIN ARCHULETA, is a 59 M with cirrhosis, ureteral stent, nephrolithiasis, h/o hepatic encephalopathy, h/o C diff colitis, h/o UTI, chronic back pain who was admitted for hypotension and recurrent sepsis. He was recently admitted here with UTI, ISABEL, and recurrent C diff. Improved with abx was discharged home on 01/05. He reports 2 days after discharge developing recurrent back and suprapubic pain. No fevers/chills, vomiting, diarrhea. On arrival here he was noted to be hypotensive with leukocytosis, lactic acidosis, and UA concerning for recurrent UTI. He was given 30 cc/kg sepsis bolus and started on empiric vanc/merrem. BP has currently improved, not requiring pressors. Pt feeling somewhat improved as well. ROS: 12-point ROS negative except as per HPI [facility] Medical History (Updated 01/09/25 @ 17:[address] aYritza Leo, DO) Chronic hyponatremia Weakness Diarrhea Sepsis Acidosis, lactic Acute hypotension Acute UTI Chronic hypotension Obesity (BMI 30-39.9) Chronic back pain ISABEL (acute kidney injury) Hypotension Hepatic encephalopathy Hyperbilirubinemia Liver cirrhosis secondary to HARRIS (nonalcoholic steatohepatitis) HLD (hyperlipidemia) HTN (hypertension) Thrombocytopenia Chronic anemia Former tobacco use Diabetes mellitus, type 2 ABBY on CPAP Back pain Home Medications ?Medication ?Instructions ?Recorded ?Last Taken ?Type rifaximin 550 mg tablet (Xifaxan) 550 mg PO BID diarrh ea #60 tabs 09/02/24 11/28/24 Rx acetaminophen 500 mg tablet 1,000 mg PO Q8 PRN fever o r pain 10/28/24 Unknown History calcium 500 mg (as 1 tab PO DAILY supplement 11/28/24 History carbonate)-vitamin D3 5 mcg (200 unit) tablet (Oyster Shell Calcium-Vitamin D3) folic acid 1 mg tablet 1 mg PO DAILY supplement 11/28/24 History atorvastatin 40 mg tablet 40 mg PO DAILY cholesterol 0 11/21/24 11/27/24 History furosemide 20 mg tablet 40 mg PO DAILY diuretic 11/0311/28/24 History magnesium oxide 400 mg (241.3 mg 400 mg PO DAILY suppl ement 11/21/24 11/28/24 History magnesium) tablet metformin 500 mg tablet,extended 500 mg PO QPM diabete s 11/21/24 11/27/24 History release 24 hr pantoprazole 20 mg tablet,delayed 20 mg PO DAILY reflu x 11/21/24 11/28/24 History release sodium bicarbonate 650 mg tablet 650 mg PO BID supplem ent 11/21/24 11/28/24 History spironolactone 50 mg tablet 100 mg PO DAILY diuretic 0 11/21/24 11/28/24 History thiamine HCl (vitamin B1) 100 mg 100 mg PO DAILY suppl ement 11/21/24 Unknown History tablet zinc sulfate 50 mg zinc (220 mg) 50 mg PO DAILY supple ment 11/21/24 11/28/24 History tablet ascorbic acid (vitamin C) 500 mg 500 mg PO BID vitamin #60 tabs 11/25/24 11/28/24 Rx tablet midodrine 10 mg tablet 10 mg PO TID blood pressure 1 11/25/24 Unknown Rx month #90 tabs lactulose 10 gram/15 mL oral 15 ml PO TID PRN constipa tion 11/28/24 Unknown History solution (Constulose) L.acidophil,salivari-Bifido 1 cap PO TID pobiotic #120 caps 12/02/24 Unknown Rx bifidum-Strep thermoph 175 mg capsule potassium, sodium phosphates 280 1 packet PO BID elect rolytes #100 12/02/24 Unknown Rx mg-160 mg-250 mg oral powder packet ea cyclobenzaprine 10 mg tablet 10 mg PO QHS muscle relax er 01/02/25 Unknown History ferrous sulfate 325 mg (65 mg 325 mg PO QODAY suppleme nt 01/02/25 Unknown History iron) tablet (FeroSul) nadolol 20 mg tablet 20 mg PO DAILY bp 01/02/25 U nknown History insulin glargine-yfgn 100 unit/mL 20 unit (0.2 mL) sub cut DAILY #0 mL 01/05/25 Unknown Rx (3 mL) subcutaneous pen insulin glargine-yfgn 100 unit/mL 20 unit (0.2 mL) sub cut QHS #0 mL 01/05/25 Unknown Rx (3 mL) subcutaneous pen insulin lispro 100 unit/mL 10 unit (0.1 mL) subcut TID AC #0 mL 01/05/25 Unknown Rx subcutaneous pen (Humalog KwikPen (U-100) Insulin) insulin lispro 100 unit/mL See Protocol subcut ACHS #0 mL 01/05/25 Unknown Rx subcutaneous pen (Humalog KwikPen (U-100) Insulin) Allergy/AdvReac Type Severity Reaction Status Date / Time No Known Allergies Allergy Verified 01/02/25 03:00 Family History Mother Heart disease Hypertension CAD (coronary artery disease) Myocardial infarction Father Hypertension Heart disease Heart failure Surgical History History of tonsillectomy and adenoidectomy Social History household members: significant other Smoking Status: Former smoker how long ago did patient quit smoking: Quit ~ 3-4 months prior (fall 2023), smoked 1.5 ppd since teen until quit. alcohol intake: never substance use type: does not use Objective Data Objective Data Vital Signs: Vital Signs Last response 3 Temperature 36.5 C L 01/09/25 17:00 Temperature Source Oral 01/09/25 17:00 Pulse Rate 71 01/09/25 18:00 Respiratory Rate 20 H 01/09/25 18:00 Respiratory Effort Normal, Non-Labored 01/09/25 18:00 Respiratory Depth Normal 01/09/25 18:00 Respiratory Pattern Normal 01/09/25 18:00 Blood Pressure 110/60 01/09/25 18:00 Blood Pressure Mean 76 01/09/25 18:00 Blood Pressure Source Monitor 01/09/25 18:00 Blood Pressure Position Semi-Fowlers 01/09/25 18:00 Blood Pressure Location Left Arm 01/09/25 18:00 Pulse Ox 98 01/09/25 18:00 Oxygen Delivery Method Room Air 01/09/25 18:00 I&O: I&O Last 24 Hours 3 01/08/25 01/09/25 01/09/25 23:59 11:59 23:59 Intake Total 3599.70 / 3599.70 Balance 3599.70 / 3599.70 I&O: Total Stay 3 01/09/25 10:09 thru 01/09/25 18:00 Intake Total 3599.70 Balance 3599.70 Current Meds Ordered / Administered: Current meds ordered / Administered 3 Generic Name Dose Route Start Last Admin Trade Name Freq PRN Reason Stop Dose Admin Acetaminophen 1,000 mg 01/09/25 15:46 Acetaminophen 500 Mg Tablet PO Q8 PRN fever or pain Albuterol Sulfate 2.5 mg 01/09/25 15:46 Albuterol 2.5 Mg/3 Ml Vial.Neb. INHALATION Q2H PRN PRN SOB &/OR WHEEZING Ascorbic Acid 500 mg 01/09/25 22:00 Ascorbic Acid 500 Mg Tablet PO BID [facility] Atorvastatin Calcium 40 mg 01/10/25 10:00 Atorvastatin Calcium 40 Mg Tablet PO DAILY KRYSTIN Calcium/Vitamin D 1 tablet 01/10/25 10:00 Calcium Carb/Vitamin D 1 Tablet Tablet PO DAILY KRYSTIN Cyclobenzaprine HCl 10 mg 01/09/25 22:00 Cyclobenzaprine Hcl 10 Mg Tablet PO QHS KRYSTIN Ferrous Sulfate 325 mg 01/10/25 12:00 Ferrous Sulfate 325 Mg Tablet PO Q48@1200 KRYSTIN Folic Acid 1 mg 01/10/25 08:00 Folic Acid 1 Mg Tablet PO BREAKFAST KRYSTIN Guaifenesin 10 ml 01/09/25 15:46 Guaifenesin 10 Ml Udc (200mg/10ml) PO Q4H PRN PRN COUGH Heparin Sodium (Porcine) 5,000 unit 01/09/25 22:00 Heparin Injection (Vial) 5,000 Unit/Ml Vial SC Q8 KRYSTIN Sodium Chloride 250 mls @ 15 mls/hr 01/09/25 15:34 IV .[id number] PRN Saline Flush Sodium Chloride 250 mls @ 15 mls/hr 01/09/25 15:34 IV .[id number] PRN Additional IVPB Infusion Norepinephrine Bitartrate 8 mg 250 mls @ 9.375 mls/hr 01/09/25 15:46 01/09/25 15:56 / Sodium Chloride CONT INF Not Given .[id number] [facility] Protocol 5 MCG/MIN Vancomycin IV-PHARMACY TO DOSE 500 mls @ 250 mls/hr 01/09/25 15:46 1 each/ Sodium Chloride IV PRN PRN Rx to Dose Protocol Meropenem 1 gm/ Sodium 120 mls @ 33 mls/hr 01/09/25 22:00 Chloride IV Q12 KRYSTIN Vancomycin HCl 1,000 mg in 200 mls @ 200 mls/hr 01/10/25 02:00 Vancomycin IV Q12H [facility] Insulin Glargine 20 unit 01/09/25 22:00 Insulin Glargine-Yfgn 100 Unit/Ml Pen SC QHS [facility] Insulin Glargine 20 unit 01/10/25 10:00 Insulin Glargine-Yfgn 100 Unit/Ml Pen SC DAILY [facility] Insulin Human Lispro 0 unit 01/09/25 16:00 01/09/25 16:27 Insulin Lispro 100 Unit/Ml Insuln.Pen SC Not Given ACHS [facility] Protocol Lactulose 10 gm 01/09/25 15:46 Lactulose 20 Gm/30 Ml Udc PO TID PRN constipation Magnesium Chloride 128 mg 01/10/25 10:00 Magnesium Chloride 64 Mg Delay Rel.Tablet PO DAILY [facility] Midodrine 10 mg 01/09/25 17:00 01/09/25 17:10 Midodrine Hcl 5 Mg Tablet PO 10 mg TIDCM [facility] Administration Ondansetron HCl 4 mg 01/09/25 15:46 Ondansetron 4 Mg/2 Ml Vial IV Q8H PRN PRN NAUSEA/VOMITING Pantoprazole Sodium 20 mg 01/10/25 10:00 Pantoprazole Sodium 20 Mg Tablet PO DAILY [facility] Potassium Phos/Sodium Phos 1 packet 01/09/25 22:00 Na Biphos/Potassium Phosphate Packet PO BID [facility] Rifaximin 550 mg 01/09/25 22:00 Rifaximin 550 Mg Tablet PO BID [facility] Sodium Bicarbonate 650 mg 01/09/25 22:00 Sodium Bicarbonate 650 Mg Tablet PO BID [facility] Sodium Chloride 10 - 40 ml 01/09/25 15:34 0.9% Saline Lock 10 Ml Syringe IV UD PRN SALINE FLUSH Thiamine HCl 100 mg 01/10/25 10:00 Thiamine Hydrochloride 100 Mg Tablet PO DAILY [facility] Vancomycin Protocol 1 lab 01/11/25 00:30 Vancomycin Trough/Random Due MC 01/11/25 02:30 DAILY [facility] Zinc Sulfate 50 mg 01/10/25 10:00 Zinc Sulfate 50 Mg Zinc (220 Mg) Oral Capsule PO DAILY [facility] Lab / Micro Data 01/09/25 10:40 01/09/25 17:35 Labs: Laboratory Results - last 24 hr 01/09/25 10:40: WBC 13.2 H, RBC 2.69 L, Hgb 7.9 L, Hct 24.3 L, MCV 90.3, MCH 29.4, MCHC 32.5, RDW Std Deviation 57.5 H, RDW Coeff of Francis 18.1 H, Plt Count 114 L, MPV 11.7, Immature Gran % (Auto) 0.900, Neut % (Auto) 80.6 H, Lymph % (Auto) 7.2 L, [place] % (Auto) 6.7, Eos % (Auto) 4.2, Baso % (Auto) 0.4, Absolute Neuts (auto) 10.6 H, Absolute Lymphs (auto) 0.95, Nucleated RBC % 0, Sodium 129 L, Potassium 3.6, Chloride 103, Carbon Dioxide 13.6 L, Anion Gap 13, BUN 24 H, C reatinine 1.77 H, Estim Creat Clear Calc 50.61, Est GFR (MDRD) Non-Af 44 L, BUN/Creatinine Ratio 13.4, Glucose 149 H, Lactic Acid 3.1 H*, Calcium 8.4, Total Bilirubin 1.15, AST 68 H, ALT 42, Alkaline Phosphatase 196 H, Total Creatine Kinase 34, Total Protein 5.3 L, Albumin 2.4 L, Globulin 2.9, Albumin/Globulin Ratio 0.8 L 01/09/25 13:28: Urine Color Red, Urine Clarity Turbid, Urine pH 6.0, Ur Specific [place] 1.015, Urine Protein 500 H, Urine Glucose (UA) Normal, Urine Ketones 5 H , Urine Occult Blood 250 H, Urine Nitrite Negative, Urine Bilirubin 1 H, Urine Urobilinogen Normal, Ur Leukocyte Esterase 500 H, Urine RBC > 100 SEEN, Urine WBC 50-100 SEEN, Ur Squamous Epith Cells 0-5 SEEN, Urine Bacteria 0 SEEN, Urine Mucus 0 SEEN 01/09/25 15:35: MRSA (PCR) Negative 01/09/25 16:09: POC Glucose 99 01/09/25 17:35: Sodium 132 L, Potassium 3.7, Chloride 106, Carbon Dioxide 14.1 L , Anion Gap 11, BUN 25 H, Creatinine 1.78 H, Estim Creat Clear Calc 50.08, Est GFR (MDRD) Non-Af 44 L, BUN/Creatinine Ratio 13.8, Glucose 119 H, Lactic Acid 2.4 H*, Calcium 7.7, Vitamin D 25-Hydroxy 10.0 L Imaging Radiology Impression Abdomen/Pelvis CT 01/09/25 10:31 IMPRESSION: Fractures of 10, specially T 11 and T 12 with questionable lytic process. Differential diagnostic considerations include neoplasm as well as other benign etiologies. Double-J stent in the left collecting system extending to the left bladder base. Kidney staghorn calculus. Cholelithiasis without evidence of cholecystitis. Ventral hernia containing fat and ascites. Cholelithiasis without cholecystitis Cirrhosis and small amount of ascites. Stigmata of portal venous hypertension. No liver masses identified. Reading Location: [facility]- Assessment and Plan . Assessment and plan: Physical Exam: Gen - NAD, well-developed HEENT - MMM. Sclera anicteric Resp - CTAB. Breathing nonlabored CV - RRR. No m/g/r Abd - Soft, NT, ND Ext - No c/c/e. Skin - No rashes? Neuro - Grossly nonfocal. Slight drowsy but easily arousable, answering questions appropriately I have reviewed the pertinent vital sign, laboratory, and imaging data. ASSESSMENT: # Sepsis - possibly 2/2 recurrent UTI (though no bacteria noted on UA), ?SBP. Only small ascited noted on CT # Hypotension # Lactic acidosis # ISABEL # Hyponatremia # Anemia # Thrombocytopenia # h/o VTE - not on anticoagulation d/t recurrent anemia # Cirrhosis # Ureteral stent # Nephrolithiasis # Cholelithiasis - without cholecystitis on CT # h/o hepatic encephalopathy # h/o C diff colitis # h/o UTI # Chronic back pain PLAN: -Monitor BP closely in ICU, may need pressors if worsening. s/p 30 cc/kg sepsis bolus in ED -Empiric vanc/merrem. f/u Cx -Start bicarb gtt. Follow BMP closely. Check blood gas -Trend lactate -Monitor Cr, UOP -May need urology eval if worsening sepsis for possibility of infected stone -Cont rifaximin. Check ammonia -Follow CBC, monitor for bleeding Proph DVT/GI: SQ heparin, protonix Critical Care Time: 60 mins The entirety of this encounter was done via telemedicine using both audio and video. Consent was obtained.
[2025-01-09] MEDS: 0.9% Saline Lock 10 ML Syringe IV (20:50)
[2025-01-09] MEDS: Sodium Bicarbonate 150 MEQ in Dextrose 5%-Water (1000mL Bag) 1,000 ML 100 MEQ IV (20:50)
[2025-01-09 20:54] LABS: Blood Gas Specimen Type VEN; O2 Delivery Device Not entered; SITE Not entered; VBG BASE EXCESS -11 mmol/L (-1.0-3.5); VBG Bicarbonate 14 mmol/L (22-26); VBG PO2 49 mmHg (25-40); VBG SO2 84 % (50-70); VBG TCO2 15 mmol/L (23-33); VBG pCO2 24.7 mmHg (41-51); VBG pH 7.36 (7.32-7.42)
[2025-01-09 21:07] LABS: Ammonia 61.1 umol/L (16-60)
[2025-01-09] MEDS: Heparin Injection (Vial) 5,000 UNIT/ML VIAL 5000 UNIT SC (21:50)
[2025-01-09] MEDS: Sodium Bicarbonate 650 MG Tablet PO (21:51)
[2025-01-09] MEDS: rifAXIMin 550 MG Tablet PO (21:51)
[2025-01-09] MEDS: Na Biphos/Potassium Phosphate PACKET 1 PACKET PO (21:51)
[2025-01-09] MEDS: cycloBENZAPRine HCl 10 MG Tablet PO (21:52)
[2025-01-09] MEDS: Lactobacillis Acidophilus 1 CAP PO (21:52)
[2025-01-09] MEDS: Meropenem 1 GM in 0.9% Normal Saline (100mL MB+) 100 ML IV (21:53)
[2025-01-09] MEDS: Insulin Glargine-YFGN 100 UNIT/ML Pen 20 UNIT SC (21:58)
[2025-01-09] MEDS: Ascorbic Acid 500 MG Tablet PO (22:00)
[2025-01-09 23:07] LABS: Bedside Glucose 143 mg/dL (74-106)
[2025-01-10] VITALS (10 sets, daily range): BP systolic 90–114; BP diastolic 43–64; PULSE 66–72; RESP 14–18; TEMP 36.5–36.7; O2SAT 94–100; BMI 31.2
[2025-01-10] MEDS: Vancomycin IV 1,000 MG/200 ML BAG 200 MG IV ×2 (02:23→14:41)
[2025-01-10 04:11] LABS: Absolute Lymphocyte Count 0.85 X10^3/uL (0.83-4.51); Absolute Neutrophil Count 7.3 X10^3/uL (2.0-7.7); Basophil# 0.05 X10^3/uL; Basophil% 0.5 % (0-1); Eosinophil# 0.57 X10^3/uL; Eosinophils% 5.9 % (0-5); Hematocrit 23.1 % (40-54); Hemoglobin 7.4 g/dL (13.0-16.5); Lymphocyte # 0.85 X10^3/ul (0.83-4.51); Lymphocyte % 8.8 % (19-41); Mean Corpuscular Hgb 29.2 pg (27.0-32.0); Mean Corpuscular Volume 91.3 fL (80-94); Mean Platelet Vol. 12.3 fl (6.2-12.0); Monocyte# 0.79 X10^3/uL; Monocyte% 8.2 % (0-10); NRBC Flagged by Analyzer 0 % (0-5); Neutrophil # 7.31 X10^3/uL (2.7-7.7); Neutrophil % 76.1 % (47-70); Platelet Count 110 K/mm3 (150-450); RBC Distribution Width CV 18.7 % (11.6-14.6); RBC Distribution Width SD 60.1 fl (35.1-43.9); Red Blood Count 2.53 M/mm3 (4.6-6.2); White Blood Count 9.6 K/mm3 (4.4-11.0)
[2025-01-10 04:30] LABS: ALB/GLOB Ratio 0.9 RATIO (0.9-2.4); AST(SGOT) 101 U/L (<=37); Alanine Aminotransfer ALT/SGPT 54 U/L (<=46); Albumin, Serum 2.4 g/dL (3.5-5.0); Alkaline Phosphatase 244 U/L (40-129); Anion Gap 15 (5-15); BUN 27 mg/dL (4-19); BUN/Creat Ratio 13.7 RATIO (10-20); Calcium,Total 7.8 mg/dL (7.6-11.0); Carbon Dioxide 13.1 mmol/L (21.0-32.0); Chloride 101 mmol/L (98-108); Creatinine, Serum 1.95 mg/dL (0.70-1.20); EST Glomerular Filtration Rate 39 (>60); Estimated Creatinine Clearance 45.71 ml/min (50-250); Globulin 2.6 g/dL (2.2-4.2); Glucose 247 mg/dL (70-99); Magnesium 1.4 mg/dL (1.5-2.2); Phosphorus 3.5 mg/dL (2.7-4.5); Potassium 3.4 mmol/L (3.3-5.1); Sodium Level 129 mmol/L (133-145); Total Bilirubin 1.57 mg/dL (0.00-1.30)
[2025-01-10] MEDS: Heparin Injection (Vial) 5,000 UNIT/ML VIAL 5000 UNIT SC ×3 (06:17→21:07)
[2025-01-10] MEDS: Lactobacillis Acidophilus 1 CAP PO ×2 (06:17→21:07)
--- NOTE | 2025-01-10 07:00 | PCM.PN.INT ---
Assessment & Plan Assessment/Plan (1) Sepsis: PLAN: Plan RECOMMENDATIONS: 1. Continue antimicrobials, pending culture data. 2. Continue scheduled midodrine. 3. Low threshold for urology consultation. 4. Continue sodium bicarbonate. 5. Encourage incentive spirometer use and mobilize patient as tolerated. IMPRESSIONS: 1. Sepsis Clinical concern for recurrent UTI. The patient did receive supplemental IV fluid hydration with appropriate hemodynamic response. He has not required the initiation of vasopressor support. He does have a known history of a left-sided staghorn calculi with stenting. He is followed by Dr. Rascon of urology. At this time, the patient will be continued on antimicrobials, pending culture data. If he continues to have ongoing hematuria, recommend consultation be placed to urology. 2. Acute kidney injury Most likely secondary to ischemic ATN in the setting of sepsis. Continue current supportive care. Continue to monitor urine output. No current indication for renal replacement therapy. 3. History of [place] liver cirrhosis/history of hepatic encephalopathy/chronic hypotension/GERD/diabetes mellitus Complicates care, management, recovery and prognosis. Continue home medications as indicated. Continue scheduled midodrine. This note was generated with [employer] dictation software. It may contain incorrect words, spelling, and punctuation that were not noted in checking the note before signing. Subjective Subjective The patient was seen and examined at the bedside this morning. Events from the last 24 hours have been reviewed. The patient is currently afebrile, hemodynamically stable and maintaining appropriate oxygen saturations on room air. The patient is currently documented to be overall net +3 L for the hospitalization. Hemoglobin this morning was noted to be 7.4 g/dL. Platelet count is low at 110,000. Creatinine has increased to 1.95. The patient does report the presence of hematuria this morning. Objective Data Objective Data The patient's most recent lab work, culture data and imaging studies have all been personally reviewed. Blood and urine cultures are currently pending. Vital Signs: Vital Signs Temp Pulse Resp BP Pulse Ox O2 Del Method 97.7 F L 70 16 95/61 98 Room Air 01/10/25 06:00 01/10/25 06:00 01/10/25 06:00 01/10/25 06:00 01/10/25 06:00 01/10/25 06:00 Oxygen Delivery Method Room Air Weight: 211 lb 10.3 oz Body Mass Index (BMI) 31.2 Intake & Output: Intake and Output for Last 24 Hours 01/08/25 01/09/25 01/10/25 23:59 23:59 23:59 Intake Total 3599.70 / 3599.70 320 / 320 Output Total 950 / 950 Balance 3599.70 / 3599.70 -630 / -630 Lab / Micro Data Attestation: I reviewed the patient's lab results. 01/10/25 03:55 01/10/25 03:55 Labs: Laboratory Results - last 24 hr 01/09/25 10:40: WBC 13.2 H, RBC 2.69 L, Hgb 7.9 L, Hct 24.3 L, MCV 90.3, MCH 29.4, MCHC 32.5, RDW Std Deviation 57.5 H, RDW Coeff of Francis 18.1 H, Plt Count 114 L, MPV 11.7, Immature Gran % (Auto) 0.900, Neut % (Auto) 80.6 H, Lymph % (Auto) 7.2 L, [place] % (Auto) 6.7, Eos % (Auto) 4.2, Baso % (Auto) 0.4, Absolute Neuts (auto) 10.6 H, Absolute Lymphs (auto) 0.95, Nucleated RBC % 0, Sodium 129 L, Potassium 3.6, Chloride 103, Carbon Dioxide 13.6 L, Anion Gap 13, BUN 24 H, Creatinine 1.77 H, Estim Creat Clear Calc 50.61, Est GFR (MDRD) Non-Af 44 L, BUN/Creatinine Ratio 13.4, Glucose 149 H, Lactic Acid 3.1 H*, Calcium 8.4, Total Bilirubin 1.15, AST 68 H, ALT 42, Alkaline Phosphatase 196 H, Total Creatine Kinase 34, Total Protein 5.3 L, Albumin 2.4 L, Globulin 2.9, Albumin/Globulin Ratio 0.8 L 01/09/25 13:28: Urine Color Red, Urine Clarity Turbid, Urine pH 6.0, Ur Specific [place] 1.015, Urine Protein 500 H, Urine Glucose (UA) Normal, Urine Ketones 5 H, Urine Occult Blood 250 H, Urine Nitrite Negative, Urine Bilirubin 1 H, Urine Urobilinogen Normal, Ur Leukocyte Esterase 500 H, Urine RBC > 100 SEEN, Urine WBC 50-100 SEEN, Ur Squamous Epith Cells 0-5 SEEN, Urine Bacteria 0 SEEN, Urine Mucus 0 SEEN 01/09/25 15:35: MRSA (PCR) Negative 01/09/25 16:09: POC Glucose 99 01/09/25 17:35: Sodium 132 L, Potassium 3.7, Chloride 106, Carbon Dioxide 14.1 L, Anion Gap 11, BUN 25 H, Creatinine 1.78 H, Estim Creat Clear Calc 50.08, Est GFR (MDRD) Non-Af 44 L, BUN/Creatinine Ratio 13.8, Glucose 119 H, Lactic Acid 2.4 H*, Calcium 7.7, Vitamin D 25-Hydroxy 10.0 L 01/09/25 20:30: Ammonia 61.1 H 01/09/25 21:57: POC Glucose 143 H 01/10/25 03:20: WBC Cancelled, Corrected WBC Cancelled, RBC Cancelled, Hgb Cancelled, Hct Cancelled, MCV Cancelled, MCH Cancelled, MCHC Cancelled, RDW Std Deviation Cancelled, RDW Coeff of Francis Cancelled, Plt Count Cancelled, MPV Cancelled, Immature Gran % (Auto) Cancelled, Neut % (Auto) Cancelled, Lymph % (Auto) Cancelled, [place] % (Auto) Cancelled, Eos % (Auto) Cancelled, Baso % (Auto) Cancelled, Absolute Neuts (auto) Cancelled, Absolute Lymphs (auto) Cancelled, Total Counted Cancelled, Neutrophils % (Manual) Cancelled, Band Neutrophils % Cancelled, Lymphocytes % (Manual) Cancelled, Monocytes % (Manual) Cancelled, Eosinophils % (Manual) Cancelled, Basophils % (Manual) Cancelled, Metamyelocytes % Cancelled, Myelocytes % Cancelled, Promyelocytes % Cancelled, Blast Cells % Cancelled, Plasma Cell % (Manual) Cancelled, Other Cells % Cancelled, Nucleated RBC % Cancelled, Nucleated RBCs/100 WBC Cancelled, Differential Comment Cancelled, Diff Path Review Cancelled, Hypersegmented Neuts Cancelled, Atypical Lymphocytes Cancelled, Reactive Lymphocytes Cancelled, Smudge Cells Cancelled, Toxic Granulation Cancelled, Toxic Vacuolation Cancelled, Dohle Bodies Cancelled, Aleksey Rods Cancelled, Platelet Estimate Cancelled, Plt Morphology Comment Cancelled, RBC Morphology Cancelled 01/10/25 03:20: RBC Morphology Cancelled, Polychromasia Cancelled, Hypochromasia Cancelled, Basophilic Stippling Cancelled, Anisocytosis Cancelled, Microcytosis Cancelled, Macrocytosis Cancelled, Spherocytes Cancelled, Sickle Cells Cancelled, Target Cells Cancelled, Tear Drop Cells Cancelled, Ovalocytes Cancelled, Stomatocytes Cancelled, [place] Bodies Cancelled, [place] Cells Cancelled, Bite Cells Cancelled, Crenated Cell Cancelled, Acanthocytes (Spur) Cancelled, Rouleaux Cancelled, Schistocytes Cancelled, Sodium Cancelled, Potassium Cancelled, Chloride Cancelled, Carbon Dioxide Cancelled, Anion Gap Cancelled, BUN Cancelled, Creatinine Cancelled, Estim Creat Clear Calc Cancelled, Est GFR (MDRD) Non-Af Cancelled, BUN/Creatinine Ratio Cancelled, Glucose Cancelled, Calcium Cancelled, Phosphorus Cancelled, Magnesium Cancelled, Total Bilirubin Cancelled, AST Cancelled, ALT Cancelled, Alkaline Phosphatase Cancelled, Total Protein Cancelled, Albumin Cancelled, Globulin Cancelled, Albumin/Globulin Ratio Cancelled 01/10/25 03:55: WBC 9.6, RBC 2.53 L, Hgb 7.4 L, Hct 23.1 L, MCV 91.3, MCH 29.2, MCHC 32.0, RDW Std Deviation 60.1 H, RDW Coeff of Francis 18.7 H, Plt Count 110 L, MPV 12.3 H, Immature Gran % (Auto) 0.500, Neut % (Auto) 76.1 H, Lymph % (Auto) 8.8 L, [place] % (Auto) 8.2, Eos % (Auto) 5.9 H, Baso % (Auto) 0.5, Absolute Neuts (auto) 7.3, Absolute Lymphs (auto) 0.85, Nucleated RBC % 0, Sodium 129 L, Potassium 3.4, Chloride 101, Carbon Dioxide 13.1 L, Anion Gap 15, BUN 27 H, Creatinine 1.95 H, Estim Creat Clear Calc 45.71 L, Est GFR (MDRD) Non-Af 39 L, BUN/Creatinine Ratio 13.7, Glucose 247 H, Calcium 7.8, Phosphorus 3.5, Magnesium 1.4 L, Total Bilirubin 1.57 H, AST 101 H, ALT 54 H, Alkaline Phosphatase 244 H, Total Protein 5.0 L, Albumin 2.4 L, Globulin 2.6, Albumin/Globulin Ratio 0.9 ABG Data ABG results: ABG 01/09/25 20:50 Specimen Type TRAMAINE Sample Site Not entered VBG pH 7.36 VBG pO2 49 H VBG HCO3 14 L VBG Total CO2 15 L VBG O2 Sat (Calc) 84 H VBG Base Excess -11 L POC Mix VBG pCO2 Pt Tmp 24.7 L O2 Delivery Device Not entered Radiography Diagnostic Testing: Radiology Impression Abdomen/Pelvis CT 01/09/25 10:31 IMPRESSION: Fractures of 10, specially T 11 and T 12 with questionable lytic process. Differential diagnostic considerations include neoplasm as well as other benign etiologies. Double-J stent in the left collecting system extending to the left bladder base. Kidney staghorn calculus. Cholelithiasis without evidence of cholecystitis. Ventral hernia containing fat and ascites. Cholelithiasis without cholecystitis Cirrhosis and small amount of ascites. Stigmata of portal venous hypertension. No liver masses identified. Reading [facility] Physical Exam Const alert, oriented x3 and no apparent distress General Appearance: cooperative HEENT normocephalic and head/scalp atraumatic Eyes PERRL, EOMs intact bilaterally and conjunctivae normal Neck supple General: trachea midline Chest inspection of chest normal Resp normal respiratory effort Auscultation: diminished lung sounds; Negative for rales, rhonchi or wheezes Cardio regular rate and regular rhythm GI soft to palpation and non-tender GI Narrative: Hernia present. Extremity no clubbing, cyanosis or edema Skin no rashes or lesions noted Neuro CN's II-XII intact bilaterally, moves all extremities and no focal motor deficits Psych Mood & Affect: flat affect Charges/Coding Visit Charges Inpatient E&M: 00668 Subs Hosp L3
[2025-01-10] MEDS: Midodrine HCl 5 MG Tablet 10 MG PO ×3 (08:08→16:29)
[2025-01-10] MEDS: Folic Acid 1 MG Tablet PO (08:08)
[2025-01-10] MEDS: Insulin Lispro 100 UNIT/ML INSULN.PEN SC ×3 (08:08→21:16)
[2025-01-10 08:28] LABS: Bedside Glucose 195 mg/dL (74-106)
[2025-01-10] MEDS: Sodium Bicarbonate 150 MEQ in Dextrose 5%-Water (1000mL Bag) 1,000 ML 100 MEQ IV ×2 (08:47→20:59)
[2025-01-10] MEDS: Insulin Glargine-YFGN 100 UNIT/ML Pen 20 UNIT SC ×2 (11:03→21:16)
[2025-01-10] MEDS: Meropenem 1 GM in 0.9% Normal Saline (100mL MB+) 100 ML IV ×2 (11:03→21:07)
[2025-01-10] MEDS: Magnesium Chloride 64 MG Delay Rel.Tablet 128 MG PO (11:04)
[2025-01-10] MEDS: Pantoprazole Sodium 20 MG Tablet PO (11:04)
[2025-01-10] MEDS: Calcium Carb/Vitamin D 1 TABLET Tablet PO (11:04)
[2025-01-10] MEDS: Atorvastatin Calcium 40 MG Tablet PO (11:04)
[2025-01-10] MEDS: Sodium Bicarbonate 650 MG Tablet PO ×2 (11:04→21:08)
[2025-01-10] MEDS: Na Biphos/Potassium Phosphate PACKET 1 PACKET PO ×2 (11:04→21:08)
[2025-01-10] MEDS: Ascorbic Acid 500 MG Tablet PO ×2 (11:05→21:08)
[2025-01-10] MEDS: Zinc Sulfate 50 mg zinc (220 mg) ORAL capsule PO (11:05)
[2025-01-10] MEDS: rifAXIMin 550 MG Tablet PO ×2 (11:05→21:07)
[2025-01-10] MEDS: Thiamine Hydrochloride 100 MG Tablet PO (11:05)
[2025-01-10] MEDS: Ferrous Sulfate 325 MG Tablet PO (11:22)
[2025-01-10 11:34] LABS: Bedside Glucose 190 mg/dL (74-106)
[2025-01-10] MEDS: Ondansetron 4 MG/2 ML Vial IV (14:40)
[2025-01-10] MEDS: 0.9% Saline Lock 10 ML Syringe IV ×2 (14:41→20:25)
--- NOTE | 2025-01-10 18:16 | PN_ITS ---
Subjective Subjective Patient seen and examined. He had no active complaints today and had an uneventful night. He denied any fever, chills, cough, chest pain, palpitations, dizziness, nausea, vomiting or any other symptoms. REview of systems was otherwise negative. Objective Data Objective Data Vital Signs: Vital Signs Temp Pulse Resp BP Pulse Ox O2 Del Method 98.0 F 71 18 114/64 100 Room Air 01/10/25 14:37 01/10/25 14:37 01/10/25 14:37 01/10/25 14:37 01/10/25 14:37 01/10/25 14:37 Oxygen Delivery Method Room Air Weight: 211 lb 10.3 oz Body Mass Index (BMI) 31.2 Intake & Output: Intake and Output for Last 24 Hours 01/08/25 01/09/25 01/10/25 23:59 23:59 23:59 Intake Total 3599.70 / 3599.70 1790 / 1790 Output Total 1200 / 1200 Balance 3599.70 / 3599.70 590 / 590 Lab / Micro Data 01/10/25 03:55 01/10/25 03:55 Labs: Laboratory Results - last 24 hr 01/09/25 15:35: MRSA (PCR) Negative 01/09/25 17:35: Sodium 132 L, Potassium 3.7, Chloride 106, Carbon Dioxide 14.1 L , Anion Gap 11, BUN 25 H, Creatinine 1.78 H, Estim Creat Clear Calc 50.08, Est GFR (MDRD) Non-Af 44 L, BUN/Creatinine Ratio 13.8, Glucose 119 H, Lactic Acid 2.4 H*, Calcium 7.7, Vitamin D 25-Hydroxy 10.0 L 01/09/25 20:30: Ammonia 61.1 H 01/09/25 21:57: POC Glucose 143 H 01/10/25 03:20: WBC Cancelled, Corrected WBC Cancelled, RBC Cancelled, Hgb Cancelled, Hct Cancelled, MCV Cancelled, MCH Cancelled, MCHC Cancelled, RDW Std Deviation Cancelled, RDW Coeff of Francis Cancelled, Plt Count Cancelled, MPV Cancelled, Immature Gran % (Auto) Cancelled, Neut % (Auto) Cancelled, Lymph % (Auto) Cancelled, [place] % (Auto) Cancelled, Eos % (Auto) Cancelled, Baso % (Auto) Cancelled, Absolute Neuts (auto) Cancelled, Absolute Lymphs (auto) Cancelled, Total Counted Cancelled, Neutrophils % (Manual) Cancelled, Band Neutrophils % Cancelled, Lymphocytes % (Manual) Cancelled, Monocytes % (Manual) Cancelled, Eosinophils % (Manual) Cancelled, Basophils % (Manual) Cancelled, Metamyelocytes % Cancelled, Myelocytes % Cancelled, Promyelocytes % Cancelled, Blast Cells % Cancelled, Plasma Cell % (Manual) Cancelled, Other Cells % Cancelled, Nucleated RBC % Cancelled, Nucleated RBCs/100 WBC Cancelled, Differential Comment Cancelled, Diff Path Review Cancelled, Hypersegmented Neuts Cancelled, Atypical Lymphocytes Cancelled, Reactive Lymphocytes Cancelled, Smudge Cells Cancelled, Toxic Granulation Cancelled, Toxic Vacuolation Cancelled, Dohle Bodies Cancelled, Aleksey Rods Cancelled, Platelet Estimate Cancelled, Plt Morphology Comment Cancelled, RBC Morphology Cancelled 01/10/25 03:20: RBC Morphology Cancelled, Polychromasia Cancelled, Hypochromasia Cancelled, Basophilic Stippling Cancelled, Anisocytosis Cancelled, Microcytosis Cancelled, Macrocytosis Cancelled, Spherocytes Cancelled, Sickle Cells Cancelled, Target Cells Cancelled, Tear Drop Cells Cancelled, Ovalocytes Cancelled, Stomatocytes Cancelled, [place] Bodies Cancelled, [place] Cells Cancelled, Bite Cells Cancelled, Crenated Cell Cancelled, Acanthocytes (Spur) Cancelled, Rouleaux Cancelled, Schistocytes Cancelled, Sodium Cancelled, Potassium Cancelled, Chloride Cancelled, Carbon Dioxide Cancelled, Anion Gap Cancelled, BUN Cancelled, Creatinine Cancelled, Estim Creat Clear Calc Cancelled, Est GFR (MDRD) Non-Af Cancelled, BUN/Creatinine Ratio Cancelled, Glucose Cancelled, Calcium Cancelled, Phosphorus Cancelled, Magnesium Cancelled, Total Bilirubin Cancelled, AST Cancelled, ALT Cancelled, Alkaline Phosphatase Cancelled, Total Protein Cancelled, Albumin Cancelled, Globulin Cancelled, Albumin/Globulin Ratio Cancelled 01/10/25 03:55: WBC 9.6, RBC 2.53 L, Hgb 7.4 L, Hct 23.1 L, MCV 91.3, MCH 29.2, MCHC 32.0, RDW Std Deviation 60.1 H, RDW Coeff of Francis 18.7 H, Plt Count 110 L, M PV 12.3 H, Immature Gran % (Auto) 0.500, Neut % (Auto) 76.1 H, Lymph % (Auto) 8.8 L, [place] % (Auto) 8.2, Eos % (Auto) 5.9 H, Baso % (Auto) 0.5, Absolute Neuts (auto) 7.3, Absolute Lymphs (auto) 0.85, Nucleated RBC % 0, Sodium 129 L, Potassium 3.4, Chloride 101, Carbon Dioxide 13.1 L, Anion Gap 15, BUN 27 H, C reatinine 1.95 H, Estim Creat Clear Calc 45.71 L, Est GFR (MDRD) Non-Af 39 L, BUN/Creatinine Ratio 13.7, Glucose 247 H, Calcium 7.8, Phosphorus 3.5, Magnesium 1.4 L, Total Bilirubin 1.57 H, AST 101 H, ALT 54 H, Alkaline Phosphatase 244 H, Total Protein 5.0 L, Albumin 2.4 L, Globulin 2.6, Albumin/Globulin Ratio 0.9 01/10/25 08:06: POC Glucose 195 H 01/10/25 11:07: POC Glucose 190 H ABG Data ABG results: ABG 01/09/25 20:50 Specimen Type TRAMAINE Sample Site Not entered VBG pH 7.36 VBG pO2 49 H VBG HCO3 14 L VBG Total CO2 15 L VBG O2 Sat (Calc) 84 H VBG Base Excess -11 L POC Mix VBG pCO2 Pt Tmp 24.7 L O2 Delivery Device Not entered Physical Exam Const alert, oriented x3 and no apparent distress General Appearance: cooperative HEENT normocephalic, head/scalp atraumatic, moist oral mucous membranes and oropharynx normal Eyes PERRL and EOMs intact bilaterally Neck no lymphadenopathy and supple Lymph Lymphatic: no lymphedema noted Resp normal respiratory effort, normal air movement and clear to auscultation bilaterally Cardio regular rate, regular rhythm, S1 normal heart sound, S2 normal heart sound and no murmurs GI normal to inspection, nondistended, normoactive bowel sounds and soft to palpation Extremity normal capillary refill, no clubbing, cyanosis or edema and no calf tenderness General Extremity: no tenderness to palpation of joints or extremities Skin General Skin Exam: no breakdown Neuro CN's II-XII intact bilaterally Motor Exam: general weakness Psych thought process normal and cooperative Mood & Affect: flat affect Assessment & Plan Assessment/Plan (1) Sepsis: (2) Abnormal urinalysis: PLAN: Plan #Sepsis due to UTI * Hypotension has resolved. Blood pressure stable. * Blood and urine cultures pending. He does have a history of known left-sided staghorn calculi and stenting and follows with Dr. Rascon * Blood and urine cultures pending. Continue broad-spectrum antibiotics with vancomycin and meropenem * Critical care on board. * #Lactic acidosis: Likely due to sepsis. Resolved with hydration. #ISABEL: * Likely prerenal due to sepsis. Creatinine was 1.77 on admission with baseline being between 0.8-1. * Will hydrate with IV fluids and monitor. Diuretics and other nephrotoxic meds on hold. Creatinine today slightly up to 1.95. Will monitor closely and if continues to trend upwards tomorrow will consult nephrology. * #History of compression fractures of T8-T12 * PT OT on board. Fall precautions. * Pain meds as needed. #Hypomagnesemia: Magnesium is 1.4. Replace and trend. 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 Aldactone and nadolol held on account of hypotension * Ammonia level was 61. #History of anemia: * Hemoglobin is 7.4. Baseline is around 8-9 though he has been as low as 7.2 before. * No clear evidence of bleeding. * May be due to his history of liver disease also. * Will monitor and transfuse if hemoglobin is less than 7. * #History of venous thrombosis: Not anticoagulated due to history of hematuria. Will monitor. #History of hypotension: On midodrine. Continue midodrine #GERD: On PPI #Type 2 diabetes mellitus: On Lantus. Insulin sliding scale. Accu-Cheks ACHS. #Hyperlipidemia: On statin DVT prophylaxis: Heparin Charges/Coding Visit Charges Inpatient E&M: 696[address] [facility] Hosp L3
[2025-01-10] MEDS: Magnesium Sulfate 4gm/100mL 4 GM/100 ML IV.SOLN. IV (20:18)
[2025-01-10] MEDS: cycloBENZAPRine HCl 10 MG Tablet PO (21:08)
[2025-01-10 22:00] LABS: Bedside Glucose 193 mg/dL (74-106)
[2025-01-11] VITALS (7 sets, daily range): BP systolic 97–138; BP diastolic 51–73; PULSE 81–87; RESP 15–21; TEMP 36.6–37.2; O2SAT 94–100; BMI 31.4
[2025-01-11] MEDS: Acetaminophen 500 MG Tablet 1000 MG PO ×2 (01:52→11:04)
[2025-01-11 02:03] LABS: Vancomycin, Trough Level 21.8 ug/mL (5.0-15.0)
--- NOTE | 2025-01-11 02:11 | PCM.RX.CS ---
Consult Antibiotic Management Pharmacy has been consulted to manage selected antibiotic: Vancomycin Type of Intervention Type of Consult: Follow-up Suspected Infection Suspected Infection: Sepsis Labs Labs: Sodium 129 mmol/L (133-145) L 01/10/25 03:55 Potassium 3.4 mmol/L (3.3-5.1) 01/10/25 03:55 Chloride 101 mmol/L (98-108) 01/10/25 03:55 Carbon Dioxide 13.1 mmol/L (21.0-32.0) L 01/10/25 03:55 Anion Gap 15 (5-15) 01/10/25 03:55 BUN 27 mg/dL (4-19) H 01/10/25 03:55 Creatinine 1.95 mg/dL (0.70-1.20) H 01/10/25 03:55 Est GFR (MDRD) Non-Af 39 (>60) L 01/10/25 03:55 BUN/Creatinine Ratio 13.7 RATIO (10-20) 01/10/25 03:55 Glucose 247 mg/dL (70-99) H 01/10/25 03:55 Vancomycin Trough 21.8 ug/mL (5.0-15.0) H 01/11/25 01:26 Dosing Weight Weight used for dosin kg Estimated Creatinine Clearance Estimated Creatinine Clearance: 46 Goal Trough Goal Trough: 15-20 mcg/mL Pharmacy Plan for Drug Dosing Pharmacy Plan for Drug Dosing: Vancomycin trough level of 21.8, drawn 10.6hrs post-dose, was above the target range of 15-20. Will suspend current dosing and will draw a random vanco level in 12 hours to determine further orders. Pharmacy Service will continue to monitor and adjust dosing as required. Follow-Up Labs Follow-Up Labs: Trough: Vancomycin (random) Date/Time Labs Ordered Labs to be done on [date and time ordered]: 01/11/25 @1330 (random)
[2025-01-11] MEDS: 0.9% Saline Lock 10 ML Syringe IV (05:59)
[2025-01-11] MEDS: Heparin Injection (Vial) 5,000 UNIT/ML VIAL 5000 UNIT SC ×2 (05:59→13:53)
[2025-01-11] MEDS: Lactobacillis Acidophilus 1 CAP PO ×3 (06:00→22:27)
[2025-01-11] MEDS: Insulin Lispro 100 UNIT/ML INSULN.PEN SC ×4 (06:00→22:26)
[2025-01-11 06:08] LABS: ALB/GLOB Ratio 0.8 RATIO (0.9-2.4); AST(SGOT) 137 U/L (<=37); Alanine Aminotransfer ALT/SGPT 66 U/L (<=46); Albumin, Serum 2.2 g/dL (3.5-5.0); Alkaline Phosphatase 314 U/L (40-129); Anion Gap 12 (5-15); BUN 16 mg/dL (4-19); BUN/Creat Ratio 13.4 RATIO (10-20); Calcium,Total 7.6 mg/dL (7.6-11.0); Carbon Dioxide 17.3 mmol/L (21.0-32.0); Chloride 99 mmol/L (98-108); Creatinine, Serum 1.18 mg/dL (0.70-1.20); EST Glomerular Filtration Rate 72 (>60); Estimated Creatinine Clearance 78.27 ml/min (50-250); Globulin 2.8 g/dL (2.2-4.2); Glucose 275 mg/dL (70-99); Potassium 3.5 mmol/L (3.3-5.1); Sodium Level 129 mmol/L (133-145); Total Bilirubin 2.05 mg/dL (0.00-1.30)
[2025-01-11 06:14] LABS: Bedside Glucose 251 mg/dL (74-106)
[2025-01-11 06:58] LABS: Absolute Lymphocyte Count 1.01 X10^3/uL (0.83-4.51); Absolute Neutrophil Count 5.6 X10^3/uL (2.0-7.7); Basophil# 0.04 X10^3/uL; Basophil% 0.5 % (0-1); Eosinophil# 0.37 X10^3/uL; Eosinophils% 4.6 % (0-5); Hematocrit 21.8 % (40-54); Hemoglobin 7.4 g/dL (13.0-16.5); Lymphocyte # 1.01 X10^3/ul (0.83-4.51); Lymphocyte % 12.6 % (19-41); Mean Corp Hgb Conc 33.9 g/dL (32-36); Mean Corpuscular Hgb 29.7 pg (27.0-32.0); Mean Corpuscular Volume 87.6 fL (80-94); Mean Platelet Vol. 12.1 fl (6.2-12.0); Monocyte# 0.95 X10^3/uL; Monocyte% 11.8 % (0-10); NRBC Flagged by Analyzer 0 % (0-5); Neutrophil # 5.58 X10^3/uL (2.7-7.7); Neutrophil % 69.6 % (47-70); Platelet Count 130 K/mm3 (150-450); RBC Distribution Width CV 18.6 % (11.6-14.6); RBC Distribution Width SD 56.7 fl (35.1-43.9); Red Blood Count 2.49 M/mm3 (4.6-6.2)
--- NOTE | 2025-01-11 07:22 | PCM.PN.INT ---
Assessment & Plan Assessment/Plan (1) Sepsis: PLAN: Plan RECOMMENDATIONS: 1. Continue antimicrobials, pending culture data. 2. Continue scheduled midodrine. 3. Low threshold for urology consultation. 4. Encourage incentive spirometer use and mobilize patient as tolerated. 5. The patient is medically stable for transfer out of the intensive care unit. Will sign off from a critical care perspective. IMPRESSIONS: 1. Sepsis Clinical concern for recurrent UTI. The patient did receive supplemental IV fluid hydration with appropriate hemodynamic response. He does have a known history of a left-sided staghorn calculi with stenting. He is followed by Dr. Rascon of urology. At this time, the patient will be continued on antimicrobials, pending culture data. If he continues to have ongoing hematuria, recommend consultation be placed to urology. 2. Acute kidney injury Resolved. Most likely secondary to ischemic ATN in the setting of sepsis. Continue current supportive care. Continue to monitor urine output. No current indication for renal replacement therapy. 3. History of [place] liver cirrhosis/history of hepatic encephalopathy/chronic hypotension/GERD/diabetes mellitus Complicates care, management, recovery and prognosis. Continue home medications as indicated. Continue scheduled midodrine. This note was generated with [employer] dictation software. It may contain incorrect words, spelling, and punctuation that were not noted in checking the note before signing. Subjective Subjective The patient was seen and examined at the bedside this morning. Events from the last 24 hours have been reviewed. The patient is currently afebrile, hemodynamically stable and maintaining appropriate oxygen saturations on room air. The patient is documented to be overall net +5.1 L for the hospitalization. Hemoglobin remained stable at 7.4 g/dL. Creatinine is within normal limits. Objective Data Objective Data The patient's most recent lab work, culture data and imaging studies have all been personally reviewed. Blood and urine cultures are currently pending. Vital Signs: Vital Signs Temp Pulse Resp BP Pulse Ox O2 Del Method 98.9 F 82 21 H 138/68 H 95 Room Air 01/11/25 06:05 01/11/25 06:05 01/11/25 06:05 01/11/25 06:05 01/11/25 06:05 01/11/25 06:05 Oxygen Delivery Method Room Air Weight: 213 lb 2.992 oz Body Mass Index (BMI) 31.4 Intake & Output: Intake and Output for Last 24 Hours 01/09/25 01/10/25 01/11/25 23:59 23:59 23:59 Intake Total 3599.70 / 3599.70 2940 / 2940 840 / 840 Output Total 1445 / 1595 750 / 750 Balance 3599.70 / 3599.70 1495 / 1345 90 / 90 Lab / Micro Data Attestation: I reviewed the patient's lab results. 01/11/25 06:19 01/11/25 05:30 Labs: Laboratory Results - last 24 hr 01/10/25 08:06: POC Glucose 195 H 01/10/25 11:07: POC Glucose 190 H 01/10/25 21:15: POC Glucose 193 H 01/11/25 01:26: Vancomycin Trough 21.8 H 01/11/25 05:30: WBC Cancelled, Corrected WBC Cancelled, RBC Cancelled, Hgb Cancelled, Hct Cancelled, MCV Cancelled, MCH Cancelled, MCHC Cancelled, RDW Std Deviation Cancelled, RDW Coeff of Francis Cancelled, Plt Count Cancelled, MPV Cancelled, Immature Gran % (Auto) Cancelled, Neut % (Auto) Cancelled, Lymph % (Auto) Cancelled, [place] % (Auto) Cancelled, Eos % (Auto) Cancelled, Baso % (Auto) Cancelled, Absolute Neuts (auto) Cancelled, Absolute Lymphs (auto) Cancelled, Total Counted Cancelled, Neutrophils % (Manual) Cancelled, Band Neutrophils % Cancelled, Lymphocytes % (Manual) Cancelled, Monocytes % (Manual) Cancelled, Eosinophils % (Manual) Cancelled, Basophils % (Manual) Cancelled, Metamyelocytes % Cancelled, Myelocytes % Cancelled, Promyelocytes % Cancelled, Blast Cells % Cancelled, Plasma Cell % (Manual) Cancelled, Other Cells % Cancelled, Nucleated RBC % Cancelled, Nucleated RBCs/100 WBC Cancelled, Differential Comment Cancelled, Diff Path Review Cancelled, Hypersegmented Neuts Cancelled, Atypical Lymphocytes Cancelled, Reactive Lymphocytes Cancelled, Smudge Cells Cancelled, Toxic Granulation Cancelled, Toxic Vacuolation Cancelled, Dohle Bodies Cancelled, Aleksey Rods Cancelled, Platelet Estimate Cancelled, Plt Morphology Comment Cancelled, RBC Morphology Cancelled 01/11/25 05:30: RBC Morphology Cancelled, Polychromasia Cancelled, Hypochromasia Cancelled, Basophilic Stippling Cancelled, Anisocytosis Cancelled, Microcytosis Cancelled, Macrocytosis Cancelled, Spherocytes Cancelled, Sickle Cells Cancelled, Target Cells Cancelled, Tear Drop Cells Cancelled, Ovalocytes Cancelled, Stomatocytes Cancelled, [place] Bodies Cancelled, [place] Cells Cancelled, Bite Cells Cancelled, Crenated Cell Cancelled, Acanthocytes (Spur) Cancelled, Rouleaux Cancelled, Schistocytes Cancelled, Sodium 129 L, Potassium 3.5, Chloride 99, Carbon Dioxide 17.3 L, Anion Gap 12, BUN 16, Creatinine 1.18, Estim Creat Clear Calc 78.27, Est GFR (MDRD) Non-Af 72, BUN/Creatinine Ratio 13.4, Glucose 275 H, Calcium 7.6, Total Bilirubin 2.05 H, AST 137 H, ALT 66 H, Alkaline Phosphatase 314 H, Total Protein 5.0 L, Albumin 2.2 L, Globulin 2.8, Albumin/Globulin Ratio 0.8 L 01/11/25 05:42: POC Glucose 251 H 01/11/25 06:19: WBC 8.0, RBC 2.49 L, Hgb 7.4 L, Hct 21.8 L, MCV 87.6, MCH 29.7, MCHC 33.9 D, RDW Std Deviation 56.7 H, RDW Coeff of Francis 18.6 H, Plt Count 130 L, MPV 12.1 H, Immature Gran % (Auto) 0.900, Neut % (Auto) 69.6, Lymph % (Auto) 12.6 L, [place] % (Auto) 11.8 H, Eos % (Auto) 4.6, Baso % (Auto) 0.5, Absolute Neuts (auto) 5.6, Absolute Lymphs (auto) 1.01, Nucleated RBC % 0 ABG Data ABG results: ABG 01/09/25 20:50 Specimen Type TRAMAINE Sample Site Not entered VBG pH 7.36 VBG pO2 49 H VBG HCO3 14 L VBG Total CO2 15 L VBG O2 Sat (Calc) 84 H VBG Base Excess -11 L POC Mix VBG pCO2 Pt Tmp 24.7 L O2 Delivery Device Not entered Radiography Diagnostic Testing: Radiology Impression Abdomen/Pelvis CT 01/09/25 10:31 IMPRESSION: Fractures of 10, specially T 11 and T 12 with questionable lytic process. Differential diagnostic considerations include neoplasm as well as other benign etiologies. Double-J stent in the left collecting system extending to the left bladder base. Kidney staghorn calculus. Cholelithiasis without evidence of cholecystitis. Ventral hernia containing fat and ascites. Cholelithiasis without cholecystitis Cirrhosis and small amount of ascites. Stigmata of portal venous hypertension. No liver masses identified. Reading Location: [facility] Physical Exam Const alert, oriented x3 and no apparent distress General Appearance: cooperative HEENT normocephalic and head/scalp atraumatic Eyes PERRL, EOMs intact bilaterally and conjunctivae normal Neck supple General: trachea midline Chest inspection of chest normal Resp normal respiratory effort Auscultation: diminished lung sounds; Negative for rales, rhonchi or wheezes Cardio regular rate and regular rhythm GI soft to palpation and non-tender GI Narrative: Hernia present. Extremity no clubbing, cyanosis or edema Skin no rashes or lesions noted Neuro CN's II-XII intact bilaterally, moves all extremities and no focal motor deficits Psych Mood & Affect: flat affect Charges/Coding Visit Charges Inpatient E&M: 78893 Subs Hosp L2
[2025-01-11] MEDS: Sodium Bicarbonate 150 MEQ in Dextrose 5%-Water (1000mL Bag) 1,000 ML 100 MEQ IV ×2 (09:32→21:02)
[2025-01-11] MEDS: Ascorbic Acid 500 MG Tablet PO ×2 (09:33→22:27)
[2025-01-11] MEDS: Calcium Carb/Vitamin D 1 TABLET Tablet PO (09:33)
[2025-01-11] MEDS: Sodium Bicarbonate 650 MG Tablet PO ×2 (09:33→22:27)
[2025-01-11] MEDS: Zinc Sulfate 50 mg zinc (220 mg) ORAL capsule PO (09:33)
[2025-01-11] MEDS: Pantoprazole Sodium 20 MG Tablet PO (09:34)
[2025-01-11] MEDS: Midodrine HCl 5 MG Tablet 10 MG PO ×3 (09:34→17:16)
[2025-01-11] MEDS: Atorvastatin Calcium 40 MG Tablet PO (09:34)
[2025-01-11] MEDS: Na Biphos/Potassium Phosphate PACKET 1 PACKET PO ×2 (09:34→22:27)
[2025-01-11] MEDS: Folic Acid 1 MG Tablet PO (09:34)
[2025-01-11] MEDS: Thiamine Hydrochloride 100 MG Tablet PO (09:34)
[2025-01-11] MEDS: rifAXIMin 550 MG Tablet PO ×2 (09:34→22:28)
[2025-01-11] MEDS: Magnesium Chloride 64 MG Delay Rel.Tablet 128 MG PO (09:34)
[2025-01-11] MEDS: Insulin Glargine-YFGN 100 UNIT/ML Pen 20 UNIT SC ×2 (09:35→22:27)
[2025-01-11] MEDS: Meropenem 1 GM in 0.9% Normal Saline (100mL MB+) 100 ML IV ×2 (09:43→22:20)
--- NOTE | 2025-01-11 10:32 | CASEMGMT ---
Discharge Planning Updates sent to [facility]. Pt will need precert to return. India Platt DC Planning Asst.
--- NOTE | 2025-01-11 12:24 | CASEMGMT ---
Discharge Planning Msg sent to [facility] requesting precert be submitted. India Platt DC Planning Asst.
[2025-01-11 12:34] LABS: Bedside Glucose 268 mg/dL (74-106)
[2025-01-11] MEDS: Morphine 2 MG/ML Syringe 1 MG IV (13:54)
--- NOTE | 2025-01-11 14:52 | CASEMGMT ---
Social Work- SW met with pt to conduct SDOH. Pt reports no concerns. Pt reports he did want to make sure he had a way back to SNF. SW provided education that staff would arrange transportation at discharge. Pt shared that he does not have a phone that works and inquired if SW could assist with getting a government phone. SW printed information from [place] on [employer] program with contact number and also suggested [facility] may be able to assist. Pt states no other needs at this time. Plan: [facility]; pend precert return to skilled level of care JANETTE Valladares
--- NOTE | 2025-01-11 15:10 | PN_ITS ---
Subjective Subjective Patient seen and examined. He is complaining of some abdominal pain today at the level of the umbilicus. It appears he has a history of another likely hernia and he states he has been hurting for some time now but the pain has worsened since he has been here. He is passing gas. He denies any nausea or vomiting. Review of systems otherwise negative. He has remained hemodynamically stable. Objective Data Objective Data Vital Signs: Vital Signs Temp Pulse Resp BP Pulse Ox O2 Del Method 98.6 F 81 15 133/68 H 99 Room Air 01/11/25 09:46 01/11/25 09:46 01/11/25 09:46 01/11/25 09:46 01/11/25 09:46 01/11/25 09:46 Oxygen Delivery Method Room Air Weight: 213 lb 2.992 oz Body Mass Index (BMI) 31.4 Intake & Output: Intake and Output for Last 24 Hours 01/09/25 01/10/25 01/11/25 23:59 23:59 23:59 Intake Total 3599.70 / 3599.70 2940 / 2940 2110 / 2110 Output Total 1445 / 1595 750 / 750 Balance 3599.70 / 3599.70 1495 / 1345 1360 / 1360 Lab / Micro Data 01/11/25 06:19 01/11/25 05:30 Labs: Laboratory Results - last 24 hr 01/10/25 21:15: POC Glucose 193 H 01/11/25 01:26: Vancomycin Trough 21.8 H 01/11/25 05:30: WBC Cancelled, Corrected WBC Cancelled, RBC Cancelled, Hgb Cancelled, Hct Cancelled, MCV Cancelled, MCH Cancelled, MCHC Cancelled, RDW Std Deviation Cancelled, RDW Coeff of Francis Cancelled, Plt Count Cancelled, MPV Cancelled, Immature Gran % (Auto) Cancelled, Neut % (Auto) Cancelled, Lymph % (Auto) Cancelled, [place] % (Auto) Cancelled, Eos % (Auto) Cancelled, Baso % (Auto) Cancelled, Absolute Neuts (auto) Cancelled, Absolute Lymphs (auto) Cancelled, Total Counted Cancelled, Neutrophils % (Manual) Cancelled, Band Neutrophils % Cancelled, Lymphocytes % (Manual) Cancelled, Monocytes % (Manual) Cancelled, Eosinophils % (Manual) Cancelled, Basophils % (Manual) Cancelled, Metamyelocytes % Cancelled, Myelocytes % Cancelled, Promyelocytes % Cancelled, Blast Cells % Cancelled, Plasma Cell % (Manual) Cancelled, Other Cells % Cancelled, Nucleated RBC % Cancelled, Nucleated RBCs/100 WBC Cancelled, Differential Comment Cancelled, Diff Path Review Cancelled, Hypersegmented Neuts Cancelled, Atypical Lymphocytes Cancelled, Reactive Lymphocytes Cancelled, Smudge Cells Cancelled, Toxic Granulation Cancelled, Toxic Vacuolation Cancelled, Dohle Bodies Cancelled, Aleksey Rods Cancelled, Platelet Estimate Cancelled, Plt Morphology Comment Cancelled, RBC Morphology Cancelled 01/11/25 05:30: RBC Morphology Cancelled, Polychromasia Cancelled, Hypochromasia Cancelled, Basophilic Stippling Cancelled, Anisocytosis Cancelled, Microcytosis Cancelled, Macrocytosis Cancelled, Spherocytes Cancelled, Sickle Cells Cancelled, Target Cells Cancelled, Tear Drop Cells Cancelled, Ovalocytes Cancelled, Stomatocytes Cancelled, [place] Bodies Cancelled, [place] Cells Cancelled, Bite Cells Cancelled, Crenated Cell Cancelled, Acanthocytes (Spur) Cancelled, Rouleaux Cancelled, Schistocytes Cancelled, Sodium 129 L, Potassium 3.5, Chloride 99, Carbon Dioxide 17.3 L, Anion Gap 12, BUN 16, Creatinine 1.18, Estim Creat Clear Calc 78.27, Est GFR (MDRD) Non-Af 72, BUN/Creatinine Ratio 13.4, Glucose 275 H, Calcium 7.6, Total Bilirubin 2.05 H, AST 137 H, ALT 66 H, A lkaline Phosphatase 314 H, Total Protein 5.0 L, Albumin 2.2 L, Globulin 2.8, A lbumin/Globulin Ratio 0.8 L 01/11/25 05:42: POC Glucose 251 H 01/11/25 06:19: WBC 8.0, RBC 2.49 L, Hgb 7.4 L, Hct 21.8 L, MCV 87.6, MCH 29.7, MCHC 33.9 D, RDW Std Deviation 56.7 H, RDW Coeff of Francis 18.6 H, Plt Count 130 L , MPV 12.1 H, Immature Gran % (Auto) 0.900, Neut % (Auto) 69.6, Lymph % (Auto) 12.6 L, [place] % (Auto) 11.8 H, Eos % (Auto) 4.6, Baso % (Auto) 0.5, Absolute Neuts (auto) 5.6, Absolute Lymphs (auto) 1.01, Nucleated RBC % 0 01/11/25 12:12: POC Glucose 268 H Micro: Microbiology 01/09/25 13:28 Urine Catheter - Catheter Urine Culture - Preliminary Yeast, not Mary albicans 01/09/25 13:30 Blood Culture (Wb) - Finger Blood Culture - Preliminary No growth in 48 hours. 01/09/25 13:35 Blood Culture (Wb) - Right Hand Blood Culture - Preliminary No growth in 48 hours. Physical Exam Const alert, oriented x3 and no apparent distress General Appearance: cooperative HEENT normocephalic, head/scalp atraumatic, hearing grossly normal bilaterally, moist oral mucous membranes and oropharynx normal Eyes EOMs intact bilaterally and conjunctivae normal Neck supple Neck Narrative: Trachea midline Lymph Lymphatic: no lymphedema noted Resp Resp Narrative: Mildly diminished breath sounds bibasilarly. No wheezes or crackles. Auscultation: Negative for rales, rhonchi or wheezes Cardio regular rate, regular rhythm, S1 normal heart sound, S2 normal heart sound and no murmurs GI normal to inspection, nondistended, normoactive bowel sounds and soft to palpation; Negative for non-tender GI Narrative: tender umbilical hernia, not reducible Palpation: hernia Extremity normal capillary refill, no clubbing, cyanosis or edema and no calf tenderness Extremity Narrative: Pedal and radial pulses are 2+ General Extremity: no tenderness to palpation of joints or extremities Skin General Skin Exam: no breakdown Neuro oriented x3, CN's II-XII intact bilaterally and moves all extremities Speech: speech normal Motor Exam: general weakness Psych thought process normal, cooperative and affect normal Mood & Affect: flat affect Assessment & Plan Assessment/Plan (1) Sepsis: (2) Abnormal urinalysis: PLAN: Plan #Sepsis due to UTI * Hypotension has resolved. Blood pressure stable. * Blood and urine cultures pending. He does have a history of known left-sided staghorn calculi and stenting and follows with Dr. Rascon * Blood and urine cultures pending. Continue broad-spectrum antibiotics with vancomycin and meropenem * Critical care on board. * #Lactic acidosis: Likely due to sepsis. Resolved with hydration. #ISABEL: Resolved. Creatinine is down to 1.18. #Umbilical hernia * Has tender umbilical hernia which is nonreducible. May be strangulated. * General surgery consulted. On IV morphine as needed for pain. Await general surgery evaluation. * #History of compression fractures of T8-T12 * PT OT on board. Fall precautions. * Pain meds as needed. #Hypomagnesemia: Resolved with replacement. 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 Aldactone and nadolol held on account of hypotension * Ammonia level was 61. #History of anemia: * Hemoglobin is still 7.4 today. Baseline is around 8-9 though he has been as low as 7.2 before. * No clear evidence of bleeding. * May be due to his history of liver disease also. * Will monitor and transfuse if hemoglobin is less than 7. * #History of venous thrombosis: Not anticoagulated due to history of hematuria. Will monitor. #History of hypotension: On midodrine. Continue midodrine #GERD: On PPI #Type 2 diabetes mellitus: On Lantus. Insulin sliding scale. Accu-Cheks ACHS. #Hyperlipidemia: On statin DVT prophylaxis: Heparin. DC heparin and switch to SCDs on account of anemia Charges/Coding Visit Charges Inpatient E&M: 80906 Subs Hosp L2
--- NOTE | 2025-01-11 16:34 | CON.PCM.SX_ITS ---
Assessment & Plan Assessment/Plan (1) Umbilical hernia: PLAN: Plan The patient is a 59-year-old male admitted with sepsis secondary to UTI. He does have a chronically incarcerated fat containing umbilical hernia with ascites fluid within it. The ascites fluid is secondary to cirrhosis. Patient does have signs of portal hypertension on imaging. This hernia was reducible with moderate manipulation. This dramatically improved his symptoms afterward. In light of his cirrhosis/ascites/portal hypertension, he would not be an ideal surgical candidate. Would recommend continue medical management of his cirrhosis prior to any thought of hernia repair. In fact I would recommend that this be performed at a tertiary center if needed. He is agreeable to this plan. Will continue to follow as needed HPI Consult Data Date of Consult: 01/11/25 HPI Narrative Reason for Consultation: Umbilical hernia HPI Narrative: FRANKLIN ARCHULETA, is a 59 M who presented to the emergency room on 01/09/2025 with complaints of suprapubic pain and back pain. Patient was just recently discharged from the hospital with acute kidney injury, hypokalemia and UTI. Patient also recently completed treatment for C. difficile colitis. Patient presented to the emergency room and was seen and evaluated by the ER staff. He met sepsis criteria and was admitted. During this admission it was noted that he had pain at the umbilicus. He has a known ventral/umbilical hernia. A general surgery consult was obtained for evaluation. Patient also has history of fatty liver which has developed into cirrhosis. Imaging indicates ascites as well as findings on CT consistent with portal hypertension. FOR[facility]LY [facility] Medical History (Updated 01/11/25 @ 16:[address] Jefferson Malave MD) Umbilical hernia Chronic hyponatremia Weakness Diarrhea Sepsis Acidosis, lactic Acute hypotension Acute UTI Chronic hypotension Obesity (BMI 30-39.9) Chronic back pain ISABEL (acute kidney injury) Hypotension Hepatic encephalopathy Hyperbilirubinemia Liver cirrhosis secondary to HARRIS (nonalcoholic steatohepatitis) HLD (hyperlipidemia) HTN (hypertension) Thrombocytopenia Chronic anemia Former tobacco use Diabetes mellitus, type 2 ABBY on CPAP Back pain Home Medications ?Medication ?Instructions ?Recorded ?Last Taken ?Type rifaximin 550 mg tablet (Xifaxan) 550 mg PO BID diarrh ea #60 tabs 09/02/24 11/28/24 Rx acetaminophen 500 mg tablet 1,000 mg PO Q8 PRN fever o r pain 10/28/24 Unknown History calcium 500 mg (as 1 tab PO DAILY supplement 11/28/24 History carbonate)-vitamin D3 5 mcg (200 unit) tablet (Oyster Shell Calcium-Vitamin D3) folic acid 1 mg tablet 1 mg PO DAILY supplement 11/28/24 History atorvastatin 40 mg tablet 40 mg PO DAILY cholesterol 0 11/21/24 11/27/24 History furosemide 20 mg tablet 40 mg PO DAILY diuretic /11/28/24 History magnesium oxide 400 mg (241.3 mg 400 mg PO DAILY suppl ement 11/21/24 11/28/24 History magnesium) tablet metformin 500 mg tablet,extended 500 mg PO QPM diabete s 11/21/24 11/27/24 History release 24 hr pantoprazole 20 mg tablet,delayed 20 mg PO DAILY reflu x 11/21/24 11/28/24 History release sodium bicarbonate 650 mg tablet 650 mg PO BID supplem ent 11/21/24 11/28/24 History spironolactone 50 mg tablet 100 mg PO DAILY diuretic 0 11/21/24 11/28/24 History thiamine HCl (vitamin B1) 100 mg 100 mg PO DAILY suppl ement 11/21/24 Unknown History tablet zinc sulfate 50 mg zinc (220 mg) 50 mg PO DAILY supple ment 11/21/24 11/28/24 History tablet ascorbic acid (vitamin C) 500 mg 500 mg PO BID vitamin #60 tabs 11/25/24 11/28/24 Rx tablet midodrine 10 mg tablet 10 mg PO TID blood pressure 1 11/25/24 Unknown Rx month #90 tabs lactulose 10 gram/15 mL oral 15 ml PO TID PRN constipa tion 11/28/24 Unknown History solution (Constulose) L.acidophil,salivari-Bifido 1 cap PO TID pobiotic #120 caps 12/02/24 Unknown Rx bifidum-Strep thermoph 175 mg capsule potassium, sodium phosphates 280 1 packet PO BID elect rolytes #100 12/02/24 Unknown Rx mg-160 mg-250 mg oral powder packet ea cyclobenzaprine 10 mg tablet 10 mg PO QHS muscle relax er 01/02/25 Unknown History ferrous sulfate 325 mg (65 mg 325 mg PO QODAY suppleme nt 01/02/25 Unknown History iron) tablet (FeroSul) nadolol 20 mg tablet 20 mg PO DAILY bp 01/02/25 U nknown History insulin glargine-yfgn 100 unit/mL 20 unit (0.2 mL) sub cut DAILY #0 mL 01/05/25 Unknown Rx (3 mL) subcutaneous pen insulin glargine-yfgn 100 unit/mL 20 unit (0.2 mL) sub cut QHS #0 mL 01/05/25 Unknown Rx (3 mL) subcutaneous pen insulin lispro 100 unit/mL 10 unit (0.1 mL) subcut TID AC #0 mL 01/05/25 Unknown Rx subcutaneous pen (Humalog KwikPen (U-100) Insulin) insulin lispro 100 unit/mL See Protocol subcut ACHS #0 mL 01/05/25 Unknown Rx subcutaneous pen (Humalog KwikPen (U-100) Insulin) Allergy/AdvReac Type Severity Reaction Status Date / Time No Known Allergies Allergy Verified 01/02/25 03:00 Family History Mother Heart disease Hypertension CAD (coronary artery disease) Myocardial infarction Father Hypertension Heart disease Heart failure Surgical History History of tonsillectomy and adenoidectomy Social History household members: significant other Smoking Status: Former smoker how long ago did patient quit smoking: Quit ~ 3-4 months prior (fall 2023), smoked 1.5 ppd since teen until quit. alcohol intake: never substance use type: does not use Physical Exam Narrative He is alert and oriented x 3. He is in no acute distress. Head is normocephalic and atraumatic. Pupils are equal round and reactive to light. Abdomen is obese soft and nondistended. He has a visibly obvious umbilical hernia. There is moderate tenderness with palpation. There is some mild skin darkening overlying this area but no signs of erythema or cellulitis. With moderate manipulation, I was able to easily reduce the hernia which greatly improved his discomfort afterward. For the remainder of our conversation, it seemed as though the hernia remained reduced. Review of his CT scans for the past 4 months or so show that the hernia has remained fat-containing and relatively stable with some mild ascitic fluid within it. There was no bowel within the hernia Lab / Micro Data 01/11/25 06:19 01/11/25 05:30 Labs: Laboratory Results - last 24 hr 01/10/25 21:15: POC Glucose 193 H 01/11/25 01:26: Vancomycin Trough 21.8 H 01/11/25 05:30: WBC Cancelled, Corrected WBC Cancelled, RBC Cancelled, Hgb Cancelled, Hct Cancelled, MCV Cancelled, MCH Cancelled, MCHC Cancelled, RDW Std Deviation Cancelled, RDW Coeff of Francis Cancelled, Plt Count Cancelled, MPV Cancelled, Immature Gran % (Auto) Cancelled, Neut % (Auto) Cancelled, Lymph % (Auto) Cancelled, Carroll % (Auto) Cancelled, Eos % (Auto) Cancelled, Baso % (Auto) Cancelled, Absolute Neuts (auto) Cancelled, Absolute Lymphs (auto) Cancelled, Total Counted Cancelled, Neutrophils % (Manual) Cancelled, Band Neutrophils % Cancelled, Lymphocytes % (Manual) Cancelled, Monocytes % (Manual) Cancelled, Eosinophils % (Manual) Cancelled, Basophils % (Manual) Cancelled, Metamyelocytes % Cancelled, Myelocytes % Cancelled, Promyelocytes % Cancelled, Blast Cells % Cancelled, Plasma Cell % (Manual) Cancelled, Other Cells % Cancelled, Nucleated RBC % Cancelled, Nucleated RBCs/100 WBC Cancelled, Differential Comment Cancelled, Diff Path Review Cancelled, Hypersegmented Neuts Cancelled, Atypical Lymphocytes Cancelled, Reactive Lymphocytes Cancelled, Smudge Cells Cancelled, Toxic Granulation Cancelled, Toxic Vacuolation Cancelled, Dohle Bodies Cancelled, Aleksey Rods Cancelled, Platelet Estimate Cancelled, Plt Morphology Comment Cancelled, RBC Morphology Cancelled 01/11/25 05:30: RBC Morphology Cancelled, Polychromasia Cancelled, Hypochromasia Cancelled, Basophilic Stippling Cancelled, Anisocytosis Cancelled, Microcytosis Cancelled, Macrocytosis Cancelled, Spherocytes Cancelled, Sickle Cells Cancelled, Target Cells Cancelled, Tear Drop Cells Cancelled, Ovalocytes Cancelled, Stomatocytes Cancelled, Castellon-Ponderay Bodies Cancelled, Flat Lick Cells Cancelled, Bite Cells Cancelled, Crenated Cell Cancelled, Acanthocytes (Spur) Cancelled, Rouleaux Cancelled, Schistocytes Cancelled, Sodium 129 L, Potassium 3.5, Chloride 99, Carbon Dioxide 17.3 L, Anion Gap 12, BUN 16, Creatinine 1.18, Estim Creat Clear Calc 78.27, Est GFR (MDRD) Non-Af 72, BUN/Creatinine Ratio 13.4, Glucose 275 H, Calcium 7.6, Total Bilirubin 2.05 H, AST 137 H, ALT 66 H, A lkaline Phosphatase 314 H, Total Protein 5.0 L, Albumin 2.2 L, Globulin 2.8, A lbumin/Globulin Ratio 0.8 L 01/11/25 05:42: POC Glucose 251 H 01/11/25 06:19: WBC 8.0, RBC 2.49 L, Hgb 7.4 L, Hct 21.8 L, MCV 87.6, MCH 29.7, MCHC 33.9 D, RDW Std Deviation 56.7 H, RDW Coeff of Francis 18.6 H, Plt Count 130 L , MPV 12.1 H, Immature Gran % (Auto) 0.900, Neut % (Auto) 69.6, Lymph % (Auto) 12.6 L, Carroll % (Auto) 11.8 H, Eos % (Auto) 4.6, Baso % (Auto) 0.5, Absolute Neuts (auto) 5.6, Absolute Lymphs (auto) 1.01, Nucleated RBC % 0 01/11/25 12:12: POC Glucose 268 H Micro: Microbiology 01/09/25 13:28 Urine Catheter - Catheter Urine Culture - Preliminary Yeast, not Mary albicans 01/09/25 13:30 Blood Culture (Wb) - Finger Blood Culture - Preliminary No growth in 48 hours. 01/09/25 13:35 Blood Culture (Wb) - Right Hand Blood Culture - Preliminary No growth in 48 hours. Charges/Coding Visit Charges Inpatient E&M: 92082 Init Hosp L3
[2025-01-11] MEDS: Vancomycin Trough/Random Due 1 LAB MC (17:16)
[2025-01-11 18:05] LABS: Vancomycin, Random Level 14.8 ug/mL (0.0-15.0)
[2025-01-11 18:15] LABS: Bedside Glucose 298 mg/dL (74-106)
[2025-01-11] MEDS: Vancomycin IV 1,000 MG/200 ML BAG 200 MG IV (19:13)
--- NOTE | 2025-01-11 19:43 | PCM.RX.CS ---
Consult Antibiotic Management Pharmacy has been consulted to manage selected antibiotic: Vancomycin Type of Intervention Type of Consult: Follow-up Suspected Infection Suspected Infection: Sepsis and Other (UTI) Labs Labs: Sodium 129 mmol/L (133-145) L 01/11/25 05:30 Potassium 3.5 mmol/L (3.3-5.1) 01/11/25 05:30 Chloride 99 mmol/L (98-108) 01/11/25 05:30 Carbon Dioxide 17.3 mmol/L (21.0-32.0) L 01/11/25 05:30 Anion Gap 12 (5-15) 01/11/25 05:30 BUN 16 mg/dL (4-19) 01/11/25 05:30 Creatinine 1.18 mg/dL (0.70-1.20) 01/11/25 05:30 Est GFR (MDRD) Non-Af 72 (>60) 01/11/25 05:30 BUN/Creatinine Ratio 13.4 RATIO (10-20) 01/11/25 05:30 Glucose 275 mg/dL (70-99) H 01/11/25 05:30 Vancomycin Trough 21.8 ug/mL (5.0-15.0) H 01/11/25 01:26 Random Vancomycin 14.8 ug/mL (0.0-15.0) 01/11/25 17:00 Microbiology Microbiology: Microbiology 01/09/25 13:28 Urine Catheter - Catheter Urine Culture - Preliminary Yeast, not Mary albicans 01/09/25 13:30 Blood Culture (Wb) - Finger Blood Culture - Preliminary No growth in 48 hours. 01/09/25 13:35 Blood Culture (Wb) - Right Hand Blood Culture - Preliminary No growth in 48 hours. Dosing Weight Weight used for dosin.63 kg Goal Trough Goal Trough: 15-20 mcg/mL Pharmacy Plan for Drug Dosing Pharmacy Plan for Drug Dosing: VANCOMYCIN LEVEL RECEIVED Current Vancomycin Dose:1000 MG Q12H Number of Doses Received: 0 Vancomycin Level: 14.8 Hours Since Last Dose: 26.5 Renal Function: SCr 1.18, CrCl 78.27 Renal Function Trend: Improved Lab/Micro: Vancomycin Plan/Comments: Level was drawn 4 hours late, and was just below therapeutic levels. Improved Renal function. Will restart dose Pharmacy Service will continue to monitor and adjust dosing as required. Pending Level: 01/13/2025 @ 0600 Follow-Up Labs Follow-Up Labs: Trough: Vancomycin Date/Time Labs Ordered Labs to be done on [date and time ordered]: 01/13/2025 @0600
[2025-01-11] MEDS: cycloBENZAPRine HCl 10 MG Tablet PO (22:27)
[2025-01-11 23:32] LABS: Bedside Glucose 258 mg/dL (74-106)
[2025-01-12] VITALS (9 sets, daily range): BP systolic 98–124; BP diastolic 52–87; PULSE 76–99; RESP 16; TEMP 36.6–37.1; O2SAT 96–98; BMI 31.4
[2025-01-12 06:14] LABS: Absolute Lymphocyte Count 0.99 X10^3/uL (0.83-4.51); Absolute Neutrophil Count 5.9 X10^3/uL (2.0-7.7); Basophil# 0.04 X10^3/uL; Basophil% 0.5 % (0-1); Eosinophil# 0.56 X10^3/uL; Eosinophils% 6.5 % (0-5); Hematocrit 21.8 % (40-54); Hemoglobin 7.4 g/dL (13.0-16.5); Lymphocyte # 0.99 X10^3/ul (0.83-4.51); Lymphocyte % 11.6 % (19-41); Mean Corp Hgb Conc 33.9 g/dL (32-36); Mean Corpuscular Hgb 29.5 pg (27.0-32.0); Mean Corpuscular Volume 86.9 fL (80-94); Mean Platelet Vol. 11.7 fl (6.2-12.0); Monocyte# 1.04 X10^3/uL; Monocyte% 12.1 % (0-10); NRBC Flagged by Analyzer 0 % (0-5); Neutrophil # 5.85 X10^3/uL (2.7-7.7); Neutrophil % 68.2 % (47-70); Platelet Count 127 K/mm3 (150-450); RBC Distribution Width CV 18.4 % (11.6-14.6); RBC Distribution Width SD 57.6 fl (35.1-43.9); Red Blood Count 2.51 M/mm3 (4.6-6.2); White Blood Count 8.6 K/mm3 (4.4-11.0)
[2025-01-12] MEDS: Vancomycin IV 1,000 MG/200 ML BAG 200 MG IV ×2 (06:39→18:04)
[2025-01-12] MEDS: Insulin Lispro 100 UNIT/ML INSULN.PEN SC ×4 (06:39→21:38)
[2025-01-12] MEDS: Lactobacillis Acidophilus 1 CAP PO ×3 (06:39→21:07)
[2025-01-12 06:43] LABS: ALB/GLOB Ratio 0.9 RATIO (0.9-2.4); AST(SGOT) 148 U/L (<=37); Alanine Aminotransfer ALT/SGPT 82 U/L (<=46); Albumin, Serum 2.4 g/dL (3.5-5.0); Alkaline Phosphatase 332 U/L (40-129); Anion Gap 9 (5-15); BUN 10 mg/dL (4-19); BUN/Creat Ratio 10.5 RATIO (10-20); Calcium,Total 7.6 mg/dL (7.6-11.0); Carbon Dioxide 24.4 mmol/L (21.0-32.0); Chloride 97 mmol/L (98-108); Creatinine, Serum 0.93 mg/dL (0.70-1.20); EST Glomerular Filtration Rate 95 (>60); Estimated Creatinine Clearance 99.17 ml/min (50-250); Globulin 2.7 g/dL (2.2-4.2); Glucose 241 mg/dL (70-99); Potassium 3.1 mmol/L (3.3-5.1); Sodium Level 130 mmol/L (133-145); Total Bilirubin 1.95 mg/dL (0.00-1.30)
[2025-01-12 07:18] LABS: Bedside Glucose 214 mg/dL (74-106)
[2025-01-12] MEDS: Midodrine HCl 5 MG Tablet 10 MG PO ×3 (08:18→16:35)
[2025-01-12] MEDS: Folic Acid 1 MG Tablet PO (08:18)
[2025-01-12] MEDS: rifAXIMin 550 MG Tablet PO ×2 (08:18→21:08)
[2025-01-12] MEDS: Zinc Sulfate 50 mg zinc (220 mg) ORAL capsule PO (08:19)
[2025-01-12] MEDS: Magnesium Chloride 64 MG Delay Rel.Tablet 128 MG PO (08:19)
[2025-01-12] MEDS: Ascorbic Acid 500 MG Tablet PO ×2 (08:19→21:08)
[2025-01-12] MEDS: Sodium Bicarbonate 650 MG Tablet PO ×2 (08:19→21:08)
[2025-01-12] MEDS: Thiamine Hydrochloride 100 MG Tablet PO (08:20)
[2025-01-12] MEDS: Calcium Carb/Vitamin D 1 TABLET Tablet PO (08:20)
[2025-01-12] MEDS: Pantoprazole Sodium 20 MG Tablet PO (08:20)
[2025-01-12] MEDS: Atorvastatin Calcium 40 MG Tablet PO (08:20)
[2025-01-12] MEDS: Na Biphos/Potassium Phosphate PACKET 1 PACKET PO ×2 (08:20→21:08)
[2025-01-12] MEDS: Acetaminophen 500 MG Tablet 1000 MG PO (08:28)
--- NOTE | 2025-01-12 09:22 | CASEMGMT ---
Discharge Planning Updates sent to [facility]. India Platt DC Planning Asst.
[2025-01-12] MEDS: Potassium Chloride Oral Tablet 20 MEQ 40 MEQ PO (10:03)
[2025-01-12] MEDS: Meropenem 1 GM in 0.9% Normal Saline (100mL MB+) 100 ML IV ×2 (10:04→21:38)
[2025-01-12] MEDS: Insulin Glargine-YFGN 100 UNIT/ML Pen 20 UNIT SC ×2 (10:06→21:38)
[2025-01-12] MEDS: Sodium Bicarbonate 150 MEQ in Dextrose 5%-Water (1000mL Bag) 1,000 ML 100 MEQ IV (11:07)
[2025-01-12] MEDS: Ferrous Sulfate 325 MG Tablet PO (11:08)
[2025-01-12 11:33] LABS: Bedside Glucose 224 mg/dL (74-106)
[2025-01-12] MEDS: Ondansetron 4 MG/2 ML Vial IV (13:39)
[2025-01-12] MEDS: Lactulose 20 GM/30 ML UDC 10 GM PO (14:34)
--- NOTE | 2025-01-12 14:57 | CASEMGMT ---
Discharge Planning [facility] has obtained auth to admit. SW updated. India Platt DC Planning Asst.
--- NOTE | 2025-01-12 15:36 | CASEMGMT ---
Patient will not discharge today. [facility] was notified. Plan: d/c back to [facility] 01-13. Hortencia ALCOCER
--- NOTE | 2025-01-12 16:46 | PN_ITS ---
Subjective Subjective Patient seen and examined. He was complaining of some back pain today. Patient has remained redundantly stable. However he says he does not feel ready to go back to his facility today and wants to go tomorrow. Review of systems otherwise negative. Objective Data Objective Data Vital Signs: Vital Signs Temp Pulse Resp BP Pulse Ox O2 Del Method 98.2 F 88 16 118/85 H 96 Room Air 01/12/25 14:54 01/12/25 15:30 01/12/25 14:54 01/12/25 14:54 01/12/25 14:54 01/12/25 14:54 Oxygen Delivery Method Room Air Weight: 212 lb 8.41 oz Body Mass Index (BMI) 31.4 Intake & Output: Intake and Output for Last 24 Hours 01/10/25 01/11/25 01/12/25 23:59 23:59 23:59 Intake Total 2940 / 2940 4280 / 4280 2040 / 2040 Output Total 1445 / 1595 1100 / 1400 900 / 900 Balance 1495 / 1345 3180 / 2880 1140 / 1140 Lab / Micro Data 01/12/25 05:23 01/12/25 05:23 Labs: Laboratory Results - last 24 hr 01/11/25 16:43: POC Glucose 298 H 01/11/25 17:00: Random Vancomycin 14.8 01/11/25 22:26: POC Glucose 258 H 01/12/25 05:23: WBC 8.6, RBC 2.51 L, Hgb 7.4 L, Hct 21.8 L, MCV 86.9, MCH 29.5, MCHC 33.9, RDW Std Deviation 57.6 H, RDW Coeff of Francis 18.4 H, Plt Count 127 L, MPV 11.7, Immature Gran % (Auto) 1.100 H, Neut % (Auto) 68.2, Lymph % (Auto) 11.6 L, [place] % (Auto) 12.1 H, Eos % (Auto) 6.5 H, Baso % (Auto) 0.5, Absolute Neuts (auto) 5.9, Absolute Lymphs (auto) 0.99, Nucleated RBC % 0, Sodium 130 L, Potassium 3.1 L, Chloride 97 L, Carbon Dioxide 24.4, Anion Gap 9, BUN 10, Creatinine 0.93, Estim Creat Clear Calc 99.17, Est GFR (MDRD) Non-Af 95, BUN/Creatinine Ratio 10.5, Glucose 241 H, Calcium 7.6, Total Bilirubin 1.95 H, A ST 148 H, ALT 82 H, Alkaline Phosphatase 332 H, Total Protein 5.0 L, Albumin 2.4 L, Globulin 2.7, Albumin/Globulin Ratio 0.9 01/12/25 06:35: POC Glucose 214 H 01/12/25 11:03: POC Glucose 224 H Micro: Microbiology 01/09/25 13:28 Urine Catheter - Catheter Urine Culture - Final Yeast, not Mary albicans 01/09/25 13:30 Blood Culture (Wb) - Finger Blood Culture - Preliminary No growth in 48 hours. 01/09/25 13:35 Blood Culture (Wb) - Right Hand Blood Culture - Preliminary No growth in 48 hours. Physical Exam Const alert, oriented x3 and no apparent distress General Appearance: cooperative HEENT normocephalic, head/scalp atraumatic, hearing grossly normal bilaterally, moist oral mucous membranes and oropharynx normal Eyes PERRL, EOMs intact bilaterally and conjunctivae normal Neck no lymphadenopathy and supple Neck Narrative: Trachea midline Lymph Lymphatic: no lymphedema noted Resp Resp Narrative: Mildly diminished breath sounds bibasilarly. No wheezes or crackles. Cardio regular rate, regular rhythm, S1 normal heart sound, S2 normal heart sound and no murmurs GI normal to inspection, nondistended, normoactive bowel sounds and soft to palpation; Negative for non-tender GI Narrative: umbilical hernia not tender, reduced by general surgery Palpation: hernia Extremity normal capillary refill, no clubbing, cyanosis or edema and no calf tenderness Extremity Narrative: P General Extremity: no tenderness to palpation of joints or extremities Skin no jaundice, no petechiae and no mottling General Skin Exam: no breakdown Neuro oriented x3, CN's II-XII intact bilaterally and moves all extremities Speech: speech normal Motor Exam: general weakness Psych thought process normal Mood & Affect: flat affect Assessment & Plan Assessment/Plan (1) Sepsis: (2) Abnormal urinalysis: PLAN: Plan #Sepsis due to UTI * Hypotension has resolved. Blood pressure stable. * Blood and urine cultures pending. He does have a history of known left-sided staghorn calculi and stenting and follows with Dr. Rascon * Continue broad-spectrum antibiotics with vancomycin and meropenem * Blood culture showed no growth. Urine cultures growing yeast not Mary albicans * #Lactic acidosis: Likely due to sepsis. Resolved with hydration. #ISABEL: Resolved. [ #Umbilical hernia * Has tender umbilical hernia which is nonreducible. * Was evaluated by general surgery yesterday and the hernia was reduced. Is no longer tender. * * #History of compression fractures of T8-T12 * PT OT on board. Fall precautions. * Pain meds as needed. #Hypomagnesemia: Resolved with replacement. 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 Aldactone and nadolol held on account of hypotension * Ammonia level was 61. #History of anemia: * Hemoglobin is still 7.4 today. Baseline is around 8-9 though he has been as low as 7.2 before. * No clear evidence of bleeding. * May be due to his history of liver disease also. * Will monitor and transfuse if hemoglobin is less than 7. * #History of venous thrombosis: Not anticoagulated due to history of hematuria. Will monitor. #History of hypotension: On midodrine. Continue midodrine #GERD: On PPI #Type 2 diabetes mellitus: On Lantus. Insulin sliding scale. Accu-Cheks ACHS. #Hyperlipidemia: On statin DVT prophylaxis: Heparin. DC heparin and switch to SCDs on account of anemia Disposition: For DC tomorrow to his facility. Charges/Coding Visit Charges Inpatient E&M: 90218 Subs Hosp L2
[2025-01-12 16:54] LABS: Bedside Glucose 316 mg/dL (74-106)
[2025-01-12] MEDS: cycloBENZAPRine HCl 10 MG Tablet PO (21:08)
[2025-01-12 22:32] LABS: Bedside Glucose 241 mg/dL (74-106)
[2025-01-13] VITALS (9 sets, daily range): BP systolic 112–130; BP diastolic 67–76; PULSE 89–108; RESP 16–20; TEMP 36.7–37.2; O2SAT 94–100; BMI 31.8
[2025-01-13] MEDS: Sodium Bicarbonate 150 MEQ in Dextrose 5%-Water (1000mL Bag) 1,000 ML 100 MEQ IV ×2 (00:37→20:11)
[2025-01-13] MEDS: Morphine 2 MG/ML Syringe 1 MG IV ×2 (02:06→09:56)
[2025-01-13] MEDS: Lactobacillis Acidophilus 1 CAP PO ×3 (05:00→22:38)
[2025-01-13] MEDS: Vancomycin Trough/Random Due 1 LAB MC (06:13)
[2025-01-13] MEDS: Acetaminophen 500 MG Tablet 1000 MG PO (06:14)
[2025-01-13 06:20] LABS: Absolute Lymphocyte Count 1.25 X10^3/uL (0.83-4.51); Absolute Neutrophil Count 5.7 X10^3/uL (2.0-7.7); Basophil# 0.03 X10^3/uL; Basophil% 0.3 % (0-1); Eosinophil# 0.45 X10^3/uL; Eosinophils% 5.2 % (0-5); Hemoglobin 7.2 g/dL (13.0-16.5); Lymphocyte # 1.25 X10^3/ul (0.83-4.51); Lymphocyte % 14.4 % (19-41); Mean Corp Hgb Conc 34.3 g/dL (32-36); Mean Corpuscular Hgb 30.3 pg (27.0-32.0); Mean Corpuscular Volume 88.2 fL (80-94); Mean Platelet Vol. 11.3 fl (6.2-12.0); Monocyte# 1.19 X10^3/uL; Monocyte% 13.7 % (0-10); NRBC Flagged by Analyzer 0 % (0-5); Neutrophil % 65.6 % (47-70); Platelet Count 124 K/mm3 (150-450); RBC Distribution Width CV 18.6 % (11.6-14.6); RBC Distribution Width SD 59.2 fl (35.1-43.9); Red Blood Count 2.38 M/mm3 (4.6-6.2); White Blood Count 8.7 K/mm3 (4.4-11.0)
[2025-01-13 06:44] LABS: Vancomycin, Trough Level 19.8 ug/mL (5.0-15.0)
[2025-01-13] MEDS: Insulin Lispro 100 UNIT/ML INSULN.PEN SC ×4 (06:46→22:16)
[2025-01-13 06:54] LABS: ALB/GLOB Ratio 0.9 RATIO (0.9-2.4); AST(SGOT) 107 U/L (<=37); Alanine Aminotransfer ALT/SGPT 72 U/L (<=46); Albumin, Serum 2.3 g/dL (3.5-5.0); Alkaline Phosphatase 306 U/L (40-129); Anion Gap 10 (5-15); BUN 7 mg/dL (4-19); BUN/Creat Ratio 7.3 RATIO (10-20); Calcium,Total 7.7 mg/dL (7.6-11.0); Carbon Dioxide 25.5 mmol/L (21.0-32.0); Chloride 96 mmol/L (98-108); EST Glomerular Filtration Rate 99 (>60); Estimated Creatinine Clearance 103.13 ml/min (50-250); Globulin 2.6 g/dL (2.2-4.2); Glucose 187 mg/dL (70-99); Potassium 3.1 mmol/L (3.3-5.1); Protein, Total 4.9 g/dL (5.9-8.4); Sodium Level 132 mmol/L (133-145); Total Bilirubin 1.69 mg/dL (0.00-1.30)
[2025-01-13 07:10] LABS: Bedside Glucose 201 mg/dL (74-106)
[2025-01-13] MEDS: Vancomycin IV 1,000 MG/200 ML BAG 200 MG IV ×2 (07:25→23:52)
[2025-01-13] MEDS: Na Biphos/Potassium Phosphate PACKET 1 PACKET PO ×2 (08:01→22:38)
[2025-01-13] MEDS: Ascorbic Acid 500 MG Tablet PO ×2 (08:01→22:38)
[2025-01-13] MEDS: Magnesium Chloride 64 MG Delay Rel.Tablet 128 MG PO (08:01)
[2025-01-13] MEDS: Folic Acid 1 MG Tablet PO (08:01)
[2025-01-13] MEDS: Calcium Carb/Vitamin D 1 TABLET Tablet PO (08:01)
[2025-01-13] MEDS: Midodrine HCl 5 MG Tablet 10 MG PO ×3 (08:02→17:43)
[2025-01-13] MEDS: Atorvastatin Calcium 40 MG Tablet PO (08:02)
[2025-01-13] MEDS: rifAXIMin 550 MG Tablet PO ×2 (08:02→22:38)
[2025-01-13] MEDS: Pantoprazole Sodium 20 MG Tablet PO (08:02)
[2025-01-13] MEDS: Zinc Sulfate 50 mg zinc (220 mg) ORAL capsule PO (08:02)
[2025-01-13] MEDS: Sodium Bicarbonate 650 MG Tablet PO ×2 (08:02→22:38)
[2025-01-13] MEDS: Thiamine Hydrochloride 100 MG Tablet PO (08:02)
[2025-01-13] MEDS: Insulin Glargine-YFGN 100 UNIT/ML Pen 20 UNIT SC ×2 (08:03→22:30)
--- NOTE | 2025-01-13 09:34 | PCM.RX.CS ---
Consult Antibiotic Management Pharmacy has been consulted to manage selected antibiotic: Vancomycin Type of Intervention Type of Consult: Follow-up Suspected Infection Suspected Infection: Sepsis Prior Doses of Antibiotics Prior Doses of Antibiotics Received/Current Regimen: 01/12/25 @ 1804 01/13/43 @ 0725 Labs Labs: Sodium 132 mmol/L (133-145) L 01/13/25 06:08 Potassium 3.1 mmol/L (3.3-5.1) L 01/13/25 06:08 Chloride 96 mmol/L (98-108) L 01/13/25 06:08 Carbon Dioxide 25.5 mmol/L (21.0-32.0) 01/13/25 06:08 Anion Gap 10 (5-15) 01/13/25 06:08 BUN 7 mg/dL (4-19) 01/13/25 06:08 Creatinine 0.90 mg/dL (0.70-1.20) 01/13/25 06:08 Est GFR (MDRD) Non-Af 99 (>60) 01/13/25 06:08 BUN/Creatinine Ratio 7.3 RATIO (10-20) L 01/13/25 06:08 Glucose 187 mg/dL (70-99) H 01/13/25 06:08 Vancomycin Trough 19.8 ug/mL (5.0-15.0) H 01/13/25 06:08 Random Vancomycin 14.8 ug/mL (0.0-15.0) 01/11/25 17:00 Microbiology Microbiology: Microbiology 01/09/25 13:28 Urine Catheter - Catheter Urine Culture - Final Yeast, not Mary albicans 01/09/25 13:30 Blood Culture (Wb) - Finger Blood Culture - Preliminary No growth in 48 hours. 01/09/25 13:35 Blood Culture (Wb) - Right Hand Blood Culture - Preliminary No growth in 48 hours. Dosing Weight Weight used for dosin kg Estimated Creatinine Clearance Estimated Creatinine Clearance: 103 Goal Trough Goal Trough: 15-20 mcg/mL Pharmacy Plan for Drug Dosing Pharmacy Plan for Drug Dosing: Vancomycin 1000mg every 12 hours Pharmacy Service will continue to monitor and adjust dosing as required. Follow-Up Labs Follow-Up Labs: Trough: Vancomycin Date/Time Labs Ordered Labs to be done on [date and time ordered]: 01/14/25
[2025-01-13] MEDS: Meropenem 1 GM in 0.9% Normal Saline (100mL MB+) 100 ML IV (09:57)
--- NOTE | 2025-01-13 10:30 | MRI_ITS ---
PROCEDURE: SPINE LUMBAR (ROUTINE) 01/13/2025 REASON FOR EXAM: SEVERE LOWER BACK PAIN TECHNIQUE: Multiplanar and multisequence images were obtained without IV contrast administration. COMPARISON: CT lumbar spine, 08/29/2024. FINDINGS: Vertebrae: There are Schmorl's nodes on either side of the vertebral endplates T11 through L2, and at the superior endplates of L3 through L5. There is anterior wedging of T11 and T12. There are no retropulsed fragments. There is sclerosis of the inferior endplates of T12 and L1. Alignment: There is maintenance of the normal lumbar lordosis. There is no spondylolisthesis. Conus Medullaris: The conus medullaris terminates normally at the T12-L1 level. L1-2: There is circumferential disc bulging. There is central canal stenosis with the AP dimension of the spinal canal measuring 8 mm. There is mild lateral recess stenosis and foraminal narrowing on the left. L2-3: There is no disc bulging or disc protrusion. There is bilateral facet arthropathy. There is no central canal stenosis. There is mild lateral recess stenosis and foraminal narrowing on the left. L3-4: There is no disc bulging or disc protrusion. There is no central canal stenosis. There is bilateral facet arthropathy. There is mild lateral recess stenosis and foraminal narrowing, bilaterally. L4-5: There is a broad-based central disc protrusion. There is bilateral facet arthropathy. There is mild compression of the thecal sac without central canal stenosis. There is mild lateral recess stenosis and moderate foraminal narrowing, bilaterally.. L5-S1: There is a left foraminal disc protrusion. There is no central canal stenosis. There is mild lateral recess stenosis and moderate foraminal narrowing, on the left. Sacrum: Unremarkable. The paravertebral soft tissues are unremarkable. MRI/Spine Lumbar (Routine) IMPRESSION: 1. There are Schmorl's nodes at multiple vertebral endplates of the lower thor acic and lumbar spine. 2. There is associated anterior wedging of T11 and T12. Review of the thoracic spine MR images, of th e same day, demonstrate Schmorl's nodes at multiple vertebral endplates throughout the thoracic spine, with associated ant erior wedging of multiple thoracic vertebral bodies, consistent with Scheuermann's kyphosis. 3. There is degenerative disc disease, L1-2, L4-5 and L5-S1, with central misti l stenosis at L1-2. 4. There is multilevel facet arthropathy of the lumbar spine with lateral rece ss stenosis and foraminal narrowing at multiple levels, as described. Reading Location: [place] [id number]
--- NOTE | 2025-01-13 10:30 | MRI_ITS ---
PROCEDURE: SPINE THORACIC (ROUTINE) 01/13/2025 REASON FOR EXAM: SEVERE BACK PAIN TECHNIQUE: Noncontrast thoracic spine MRI. Multiplanar and multisequence images were obtained. FINDINGS: Chronic compression deformities of T11 and T12 without edema. Abnormal marrow signal on T1 weighted images within the T12 and L1 vertebral bodies. No compression of the conus. No subluxation. The thoracic cord is normal in caliber and signal. On T1 weighted thoracic images, there is normal marrow signal in the remainder of the thoracic spine. MRI/Spine Thoracic (Routine) IMPRESSION: Abnormal marrow signal at T12 and L1. No acute compression deformity identifie d. Can not exclude metastatic involvement of these 2 vertebral bodies. Degenerative changes in the remainder of the lumbar spine. There is mild spinal stenosis at the level of T10-T11 and T11-T12. The patient could not tolerate postcontrast imaging. There is no cord compression Reading Location: [facility]
[2025-01-13 10:50] LABS: Ferritin 76 ng/mL (37-417); Iron 110 ug/dL (65-175); Iron Binding Capacity,Unsat 101 ug/dL (228-428)
[2025-01-13] MEDS: Potassium Chloride Oral Tablet 20 MEQ 40 MEQ PO (10:53)
[2025-01-13 11:03] LABS: Iron Binding Capacity,Total 211 ug/dL (250-450); PERCENT IRON SATURATION 52.1 % (9-55)
[2025-01-13 11:12] LABS: Bedside Glucose 249 mg/dL (74-106)
[2025-01-13] MEDS: 0.9% Saline Lock 10 ML Syringe IV ×2 (13:12→18:59)
--- NOTE | 2025-01-13 15:17 | PN_ITS ---
Subjective Subjective Patient seen and examined. He was complaining of severe back pain. He says because of his back pain he has not been able to do much with physical therapy. He denies any nausea or vomiting or dark stools. Review of systems otherwise negative. Hemoglobin today 7.2. Objective Data Objective Data Vital Signs: Vital Signs Temp Pulse Resp BP Pulse Ox O2 Del Method 98.5 F 95 16 115/67 96 Room Air 01/13/25 08:08 01/13/25 10:33 01/13/25 08:08 01/13/25 08:08 01/13/25 08:08 01/13/25 08:08 Oxygen Delivery Method Room Air Weight: 215 lb 6.266 oz Body Mass Index (BMI) 31.8 Intake & Output: Intake and Output for Last 24 Hours 01/11/25 01/12/25 01/13/25 23:59 23:59 23:59 Intake Total 4280 / 4280 3390 / 3390 2140 / 2140 Output Total 1100 / 1400 1100 / 1100 675 / 675 Balance 3180 / 2880 2290 / 2290 1465 / 1465 Lab / Micro Data 01/13/25 06:08 01/13/25 06:08 Labs: Laboratory Results - last 24 hr 01/12/25 16:31: POC Glucose 316 H 01/12/25 21:37: POC Glucose 241 H 01/13/25 06:08: WBC 8.7, RBC 2.38 L, Hgb 7.2 L, Hct 21.0 L, MCV 88.2, MCH 30.3, MCHC 34.3, RDW Std Deviation 59.2 H, RDW Coeff of Francis 18.6 H, Plt Count 124 L, MPV 11.3, Immature Gran % (Auto) 0.800, Neut % (Auto) 65.6, Lymph % (Auto) 14.4 L, [place] % (Auto) 13.7 H, Eos % (Auto) 5.2 H, Baso % (Auto) 0.3, Absolute Neuts (auto) 5.7, Absolute Lymphs (auto) 1.25, Nucleated RBC % 0, Sodium 132 L, P otassium 3.1 L, Chloride 96 L, Carbon Dioxide 25.5, Anion Gap 10, BUN 7, Creatinine 0.90, Estim Creat Clear Calc 103.13, Est GFR (MDRD) Non-Af 99, B UN/Creatinine Ratio 7.3 L, Glucose 187 H, Calcium 7.7, Total Bilirubin 1.69 H, A ST 107 H, ALT 72 H, Alkaline Phosphatase 306 H, Total Protein 4.9 L, Albumin 2.3 L, Globulin 2.6, Albumin/Globulin Ratio 0.9, Vancomycin Trough 19.8 H 01/13/25 06:45: POC Glucose 201 H 01/13/25 09:38: Iron 110, TIBC 211 L, Iron Saturation 52.1, Unsaturated IBC 101 L, Ferritin 76, Blood Type O POSITIVE, Antibody Screen NEGATIVE, Crossmatch See Detail 01/13/25 10:52: POC Glucose 249 H Micro: Microbiology 01/09/25 13:28 Urine Catheter - Catheter Urine Culture - Final Yeast, not Mary albicans 01/09/25 13:30 Blood Culture (Wb) - Finger Blood Culture - Preliminary No growth in 48 hours. 01/09/25 13:35 Blood Culture (Wb) - Right Hand Blood Culture - Preliminary No growth in 48 hours. Physical Exam Const alert, oriented x3 and no apparent distress General Appearance: cooperative HEENT normocephalic, head/scalp atraumatic, hearing grossly normal bilaterally, moist oral mucous membranes and oropharynx normal Eyes EOMs intact bilaterally and conjunctivae normal Eyes Narrative: Conjunctival pallor present bilaterally, no scleral icterus Neck supple and no JVD Lymph Lymphatic: no lymphedema noted Resp Resp Narrative: Mildly diminished breath sounds bibasilarly. No wheezes or crackles. Auscultation: Negative for rales, rhonchi or wheezes Cardio regular rate, regular rhythm, S1 normal heart sound, S2 normal heart sound and no murmurs GI normal to inspection, nondistended, normoactive bowel sounds and soft to palpation GI Narrative: umbilical hernia only minimally tender, reduced by general surgery Palpation: hernia Extremity normal capillary refill, no clubbing, cyanosis or edema and no calf tenderness General Extremity: no tenderness to palpation of joints or extremities Skin Skin Narrative: mildly jaundiced, this is chronic General Skin Exam: no breakdown Neuro oriented x3 and moves all extremities Motor Exam: general weakness Psych thought process normal, cooperative and affect normal Mood & Affect: flat affect Assessment & Plan Assessment/Plan (1) Sepsis: (2) Abnormal urinalysis: PLAN: Plan #Sepsis due to UTI * Hypotension has resolved. Blood pressure stable. * Blood and urine cultures pending. He does have a history of known left-sided staghorn calculi and stenting and follows with Dr. Rascon * Continue broad-spectrum antibiotics with vancomycin and meropenem * Blood culture showed no growth. Urine cultures growing yeast not Mary albicans\ * will complete a 5 day course of antibiotics * #Lactic acidosis: Likely due to sepsis. Resolved with hydration. #ISABEL: Resolved. #Hypokalemia: Potassium is 3.1. Will replace and trend. #Umbilical hernia * Was evaluated by general surgery and the hernia was reduced. Is no longer tender. * #History of compression fractures of T8-T12 * PT OT on board. Fall precautions. * patient still complaining of severe back pain. Will get MRI of the lumbar and thoracic spine to better evaluate this. #Hypomagnesemia: Resolved with replacement. 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 Aldactone and nadolol held on account of hypotension * #Acute on chronic * Hemoglobin is 7.2 today. Baseline is around 8-9 though he has been as low as 7.2 before. * No clear evidence of bleeding. * May be due to his history of liver disease also. * Will transfuse with one unit of PRBC. Check stool for occult blood * #History of venous thrombosis: Not anticoagulated due to history of hematuria. Will monitor. #History of hypotension: On midodrine. Continue midodrine #GERD: On PPI #Type 2 diabetes mellitus: On Lantus. Insulin sliding scale. Accu-Cheks ACHS. #Hyperlipidemia: On statin DVT prophylaxis: Heparin. DC heparin and switch to SCDs on account of anemia Disposition: DC to his facility when medically stable. Charges/Coding Visit Charges Inpatient E&M: 63907 Subs Hosp L2
[2025-01-13 16:54] LABS: Bedside Glucose 268 mg/dL (74-106)
[2025-01-13 22:36] LABS: Bedside Glucose 272 mg/dL (74-106)
[2025-01-13] MEDS: cycloBENZAPRine HCl 10 MG Tablet PO (22:43)
--- NOTE | 2025-01-13 23:32 | NURSING ---
This RN taking over care for this pt at this time.
[2025-01-14] VITALS (7 sets, daily range): BP systolic 111–130; BP diastolic 60–74; PULSE 95–105; RESP 16–18; TEMP 36.5–36.8; O2SAT 93–97; BMI 33.1
[2025-01-14] MEDS: Meropenem 1 GM in 0.9% Normal Saline (100mL MB+) 100 ML IV ×3 (01:25→21:44)
[2025-01-14] MEDS: 0.9% Saline Lock 10 ML Syringe IV ×3 (01:26→09:02)
[2025-01-14 05:08] LABS: Absolute Lymphocyte Count 1.09 X10^3/uL (0.83-4.51); Absolute Neutrophil Count 5.3 X10^3/uL (2.0-7.7); Basophil# 0.03 X10^3/uL; Basophil% 0.4 % (0-1); Eosinophil# 0.44 X10^3/uL; Eosinophils% 5.5 % (0-5); Hematocrit 23.2 % (40-54); Hemoglobin 7.8 g/dL (13.0-16.5); Lymphocyte # 1.09 X10^3/ul (0.83-4.51); Lymphocyte % 13.5 % (19-41); Mean Corp Hgb Conc 33.6 g/dL (32-36); Mean Corpuscular Hgb 29.5 pg (27.0-32.0); Mean Corpuscular Volume 87.9 fL (80-94); Mean Platelet Vol. 11.8 fl (6.2-12.0); Monocyte# 1.15 X10^3/uL; Monocyte% 14.3 % (0-10); NRBC Flagged by Analyzer 0 % (0-5); Neutrophil # 5.26 X10^3/uL (2.7-7.7); Neutrophil % 65.3 % (47-70); Platelet Count 121 K/mm3 (150-450); RBC Distribution Width CV 18.5 % (11.6-14.6); RBC Distribution Width SD 58.4 fl (35.1-43.9); Red Blood Count 2.64 M/mm3 (4.6-6.2); White Blood Count 8.1 K/mm3 (4.4-11.0)
[2025-01-14] MEDS: Vancomycin IV 1,000 MG/200 ML BAG 200 MG IV (06:21)
[2025-01-14] MEDS: Lactobacillis Acidophilus 1 CAP PO ×3 (06:21→21:33)
[2025-01-14] MEDS: Insulin Lispro 100 UNIT/ML INSULN.PEN SC ×4 (06:22→21:38)
[2025-01-14] MEDS: Acetaminophen 500 MG Tablet 1000 MG PO (06:23)
[2025-01-14] MEDS: Morphine 2 MG/ML Syringe 1 MG IV ×3 (06:23→21:35)
[2025-01-14 07:11] LABS: ALB/GLOB Ratio 0.9 RATIO (0.9-2.4); AST(SGOT) 83 U/L (<=37); Alanine Aminotransfer ALT/SGPT 61 U/L (<=46); Albumin, Serum 2.4 g/dL (3.5-5.0); Alkaline Phosphatase 293 U/L (40-129); Anion Gap 11 (5-15); BUN 6 mg/dL (4-19); BUN/Creat Ratio 6.4 RATIO (10-20); Calcium,Total 7.9 mg/dL (7.6-11.0); Carbon Dioxide 25.1 mmol/L (21.0-32.0); Chloride 95 mmol/L (98-108); Creatinine, Serum 0.86 mg/dL (0.70-1.20); EST Glomerular Filtration Rate 100 (>60); Globulin 2.5 g/dL (2.2-4.2); Glucose 280 mg/dL (70-99); Protein, Total 4.9 g/dL (5.9-8.4); Sodium Level 131 mmol/L (133-145); Total Bilirubin 2.64 mg/dL (0.00-1.30)
[2025-01-14 07:15] LABS: Bedside Glucose 263 mg/dL (74-106)
--- NOTE | 2025-01-14 08:06 | CT_ITS ---
EXAM: CT Chest Without Intravenous Contrast CLINICAL INDICATION: LYTIC BONE LESION, EVALUATE FOR LUNG MALIGNANCY TECHNIQUE: Axial computed tomography images of the chest without intravenous contrast. This CT exam was performed using one or more of the following dose reduction techniques: automated exposure control, adjustment of the mA and/or kV according to patient size, and/or use of iterative reconstruction technique. COMPARISON: No relevant prior studies available. FINDINGS: LUNGS AND PLEURAL SPACES: Mild lung emphysema. No suspicious nodules or focal consolidation. No significant effusion. No pneumothorax. HEART: Unremarkable. No cardiomegaly. No significant pericardial effusion. No significant coronary artery calcifications. BONES/JOINTS: Partially visualized severe degenerative changes of T11-T12 with areas of erosive changes and lytic lesions. Metastasis can not be excluded. No acute fracture. SOFT TISSUES: Unremarkable. VASCULATURE: Unremarkable. No thoracic aortic aneurysm. LYMPH NODES: Unremarkable. No enlarged lymph nodes. LIVER: Cirrhosis and ascites. CT/Chest without Contrast IMPRESSION: 1. Partially visualized severe degenerative changes of T11-T12 with areas of e rosive changes and lytic lesions. Metastasis can not be excluded. 2. Cirrhosis and ascites. 3. Mild lung emphysema. No suspicious nodules or focal consolidation. Reading Location: [facility]
[2025-01-14 08:44] LABS: PSA,Total- Diagnostic 0.65 ng/mL (0.00-4.00)
[2025-01-14] MEDS: Midodrine HCl 5 MG Tablet 10 MG PO ×3 (09:02→16:22)
[2025-01-14] MEDS: Zinc Sulfate 50 mg zinc (220 mg) ORAL capsule PO (09:03)
[2025-01-14] MEDS: Na Biphos/Potassium Phosphate PACKET 1 PACKET PO (09:03)
[2025-01-14] MEDS: Potassium Chloride Oral Tablet 20 MEQ 40 MEQ PO (09:03)
[2025-01-14] MEDS: Thiamine Hydrochloride 100 MG Tablet PO (09:03)
[2025-01-14] MEDS: rifAXIMin 550 MG Tablet PO ×2 (09:04→21:33)
[2025-01-14] MEDS: Sodium Bicarbonate 650 MG Tablet PO ×2 (09:04→21:32)
[2025-01-14] MEDS: Ascorbic Acid 500 MG Tablet PO ×2 (09:04→21:34)
[2025-01-14] MEDS: Pantoprazole Sodium 20 MG Tablet PO (09:04)
[2025-01-14] MEDS: Magnesium Chloride 64 MG Delay Rel.Tablet 128 MG PO (09:04)
[2025-01-14] MEDS: Atorvastatin Calcium 40 MG Tablet PO (09:04)
[2025-01-14] MEDS: Folic Acid 1 MG Tablet PO (09:04)
[2025-01-14] MEDS: Calcium Carb/Vitamin D 1 TABLET Tablet PO (09:05)
[2025-01-14] MEDS: Insulin Glargine-YFGN 100 UNIT/ML Pen 20 UNIT SC ×2 (09:12→21:39)
--- NOTE | 2025-01-14 09:45 | CASEMGMT ---
Addendum entered by India Platt 01/14/25 10:18: Per [facility], they believe auth is good through 01/18. India Platt DC Planning Asst. Original Note: Discharge Planning Updates sent to [facility] with note that pt could return over the weekend. India Platt DC Planning Asst.
[2025-01-14] MEDS: Sodium Bicarbonate 150 MEQ in Dextrose 5%-Water (1000mL Bag) 1,000 ML 100 MEQ IV ×2 (09:53→21:48)
[2025-01-14] MEDS: Ferrous Sulfate 325 MG Tablet PO (11:20)
[2025-01-14 12:02] LABS: Bedside Glucose 261 mg/dL (74-106)
--- NOTE | 2025-01-14 14:27 | CASEMGMT ---
Green sheet on chart in the event patient is ready for discharge over the weekend. Plan: d/c back to [facility] under skilled level of care. Physicians will transport patient. Hortencia ALCOCER
[2025-01-14 16:54] LABS: Bedside Glucose 194 mg/dL (74-106)
--- NOTE | 2025-01-14 17:06 | PCM.PROGNOTE ---
Subjective Subjective Patient seen and examined. He still complaining of back pain. He was seen with his nurse by his bedside. He is not able to do much with therapy due to the back pain. Review of symptoms otherwise negative. Objective Data Objective Data Vital Signs: Vital Signs Temp Pulse Resp BP Pulse Ox O2 Del Method 98.1 F 96 18 114/67 97 Room Air 01/14/25 14:40 01/14/25 14:40 01/14/25 14:40 01/14/25 14:40 01/14/25 14:40 01/14/25 15:41 Oxygen Delivery Method Room Air Weight: 224 lb 6.889 oz Body Mass Index (BMI) 33.1 Intake & Output: Intake and Output for Last 24 Hours 01/12/25 01/13/25 01/14/25 23:59 23:59 23:59 Intake Total 3390 / 3390 2798.33 / 2798.33 1771.67 / 1771.67 Output Total 1100 / 1100 675 / 675 225 / 225 Balance 2290 / 2290 2123.33 / 2123.33 1546.67 / 1546.67 Lab / Micro Data 01/14/25 03:53 01/14/25 03:53 Labs: Laboratory Results - last 24 hr 01/13/25 09:38: Blood Type O POSITIVE, Antibody Screen NEGATIVE, Crossmatch See Detail 01/13/25 22:15: POC Glucose 272 H 01/14/25 03:53: WBC 8.1, RBC 2.64 L, Hgb 7.8 L, Hct 23.2 L, MCV 87.9, MCH 29.5, MCHC 33.6, RDW Std Deviation 58.4 H, RDW Coeff of Francis 18.5 H, Plt Count 121 L, MPV 11.8, Immature Gran % (Auto) 1.000 H, Neut % (Auto) 65.3, Lymph % (Auto) 13.5 L, [place] % (Auto) 14.3 H, Eos % (Auto) 5.5 H, Baso % (Auto) 0.4, Absolute Neuts (auto) 5.3, Absolute Lymphs (auto) 1.09, Nucleated RBC % 0, Sodium 131 L, Potassium 3.0 L, Chloride 95 L, Carbon Dioxide 25.1, Anion Gap 11, BUN 6, Creatinine 0.86, Estim Creat Clear Calc 110.10, Est GFR (MDRD) Non-Af 100, BUN/Creatinine Ratio 6.4 L, Glucose 280 H, Calcium 7.9, Total Bilirubin 2.64 H, AST 83 H, ALT 61 H, Alkaline Phosphatase 293 H, Total Protein 4.9 L, Albumin 2.4 L, Globulin 2.5, Albumin/Globulin Ratio 0.9, Total PSA 0.65 01/14/25 06:20: POC Glucose 263 H 01/14/25 11:16: POC Glucose 261 H 01/14/25 16:20: POC Glucose 194 H Micro: Microbiology 01/09/25 13:35 Blood Culture (Wb) - Right Hand Blood Culture - Final No growth in 5 days. 01/09/25 13:30 Blood Culture (Wb) - Finger Blood Culture - Final No growth in 5 days. 01/09/25 13:28 Urine Catheter - Catheter Urine Culture - Final Yeast, not Mary albicans Radiography Diagnostic Testing: Radiology Impression Lumbar Spine MRI 01/13/25 10:30 IMPRESSION: 1. There are Schmorl's nodes at multiple vertebral endplates of the lower thoracic and lumbar spine. 2. There is associated anterior wedging of T11 and T12. Review of the thoracic spine MR images, of the same day, demonstrate Schmorl's nodes at multiple vertebral endplates throughout the thoracic spine, with associated anterior wedging of multiple thoracic vertebral bodies, consistent with Scheuermann's kyphosis. 3. There is degenerative disc disease, L1-2, L4-5 and L5-S1, with central canal stenosis at L1-2. 4. There is multilevel facet arthropathy of the lumbar spine with lateral recess stenosis and foraminal narrowing at multiple levels, as described. Reading Location: [place] [id number] Thoracic Spine MRI 01/13/25 10:30 IMPRESSION: Abnormal marrow signal at T12 and L1. No acute compression deformity identified. Can not exclude metastatic involvement of these 2 vertebral bodies. Degenerative changes in the remainder of the lumbar spine. There is mild spinal stenosis at the level of T10-T11 and T11-T12. The patient could not tolerate postcontrast imaging. There is no cord compression [facility] 01/14/25 08:06 IMPRESSION: 1. Partially visualized severe degenerative changes of T11-T12 with areas of erosive changes and lytic lesions. Metastasis can not be excluded. 2. Cirrhosis and ascites. 3. Mild lung emphysema. No suspicious nodules or focal consolidation. Reading Location: [facility] Physical Exam Const alert, oriented x3 and no apparent distress General Appearance: cooperative HEENT normocephalic, head/scalp atraumatic, hearing grossly normal bilaterally, moist oral mucous membranes and oropharynx normal Eyes PERRL, EOMs intact bilaterally and conjunctivae normal Eyes Narrative: Conjunctival pallor present bilaterally, no scleral icterus Neck supple and no JVD Neck Narrative: Trachea midline Lymph Lymphatic: no lymphedema noted Resp Resp Narrative: Mildly diminished breath sounds bibasilarly. No wheezes or crackles. Cardio regular rate, regular rhythm, S1 normal heart sound, S2 normal heart sound and no murmurs GI normal to inspection, nondistended, normoactive bowel sounds and soft to palpation; Negative for non-tender GI Narrative: umbilical hernia only minimally tender, reduced by general surgery Palpation: hernia Extremity normal capillary refill, no clubbing, cyanosis or edema and no calf tenderness General Extremity: no tenderness to palpation of joints or extremities Skin no jaundice, no petechiae and no mottling Skin Narrative: mildly jaundiced, this is chronic General Skin Exam: no breakdown Neuro oriented x3, CN's II-XII intact bilaterally and moves all extremities Speech: speech normal Motor Exam: general weakness Psych Mood & Affect: flat affect Assessment & Plan Assessment/Plan (1) Sepsis: (2) Abnormal urinalysis: PLAN: Plan #Sepsis due to UTI Hypotension has resolved. Blood pressure stable. Blood and urine cultures pending. He does have a history of known left-sided staghorn calculi and stenting and follows with Dr. Rascon Continue broad-spectrum antibiotics with vancomycin and meropenem Blood culture showed no growth. Urine cultures growing yeast not Mary albicans\ will complete a 5 day course of antibiotics #Lactic acidosis: Likely due to sepsis. Resolved with hydration. #ISABEL: Resolved. #Hypokalemia: Potassium is 3.0. Will replace and trend. #Umbilical hernia Was evaluated by general surgery and the hernia was reduced. Is no longer tender. #History of compression fractures of T8-T12 PT OT on board. Fall precautions. patient still complaining of severe back pain. MRI of the lumbar spine showed Schmorl's nodules at multiple vertebral endplates of the lower thoracic and lumbar spine with associated anterior wedging of T11 and 12 and review of the thoracic spine MRI images demonstrated Schmorl's nodes at multiple vertebral endplates throughout the thoracic spine with associated anterior wedging of multiple blastic vertebral bodies consistent with Shermans kyphosis and multilevel facet arthropathy of the lumbar spine with lateral recess stenosis and foraminal narrowing. Thoracic MRI showed abnormal marrow signal at T12 and L1 with no acute compression deformity identified and cannot exclude metastatic involvement of these 2 vertebral bodies and mild spinal stenosis of the level of T10-11 and T11-T12 Patient PSA is normal. CT of the abdomen pelvis showed no evidence of any malignancy. I did get a CT of the chest today also which showed no evidence of malignancy. His total protein level is not elevated and total albumin level is also normal I therefore do not see any evidence of malignancy. He does have a history of smoking but as stated the CT chest showed no evidence of any lung nodules or malignancy. CT of the chest showed partially visualized severe degenerative changes of T11 and 12 with areas of erosive changes and lytic lesions as well as cirrhosis and ascites. Pain management consulted. Patient will need follow-up on outpatient basis with PCP for further workup for any malignancy. PT OT on board. Fall precautions. #Hypomagnesemia: Resolved with replacement. #History of nonalcoholic liver disease with cirrhosis On rifaximin and lactulose. Aldactone and nadolol held on account of hypotension #Acute on chronic anemia Hemoglobin is 7.8 today after he was transfused with one unit of pRBC yesterday. Baseline is around 8-9 though he has been as low as 7.2 before. No clear evidence of bleeding. May be due to his history of liver disease also. stool for ocult blood pending #Chronic thrombocytopenia: Platelets are 121 today. As stated this is chronic. Likely due to chronic liver disease. Will monitor. #History of venous thrombosis: Not anticoagulated due to history of hematuria. Will monitor. #History of hypotension: On midodrine. Continue midodrine #GERD: On PPI #Type 2 diabetes mellitus: On Lantus. Insulin sliding scale. Accu-Cheks ACHS. #Hyperlipidemia: On statin DVT prophylaxis: SCDs Disposition: DC to his facility when medically stable. Charges/Coding Visit Charges Inpatient E&M: 57136 Subs Hosp L2
[2025-01-14 19:53] LABS: Vancomycin, Trough Level 21.4 ug/mL (5.0-15.0)
--- NOTE | 2025-01-14 20:03 | PCM.RX.CS ---
Consult Antibiotic Management Pharmacy has been consulted to manage selected antibiotic: Vancomycin Type of Intervention Type of Consult: Follow-up Labs Labs: Sodium 131 mmol/L (133-145) L 01/14/25 03:53 Potassium 3.0 mmol/L (3.3-5.1) L 01/14/25 03:53 Chloride 95 mmol/L (98-108) L 01/14/25 03:53 Carbon Dioxide 25.1 mmol/L (21.0-32.0) 01/14/25 03:53 Anion Gap 11 (5-15) 01/14/25 03:53 BUN 6 mg/dL (4-19) 01/14/25 03:53 Creatinine 0.86 mg/dL (0.70-1.20) 01/14/25 03:53 Est GFR (MDRD) Non-Af 100 (>60) 01/14/25 03:53 BUN/Creatinine Ratio 6.4 RATIO (10-20) L 01/14/25 03:53 Glucose 280 mg/dL (70-99) H 01/14/25 03:53 Vancomycin Trough 21.4 ug/mL (5.0-15.0) H 01/14/25 18:15 Random Vancomycin 14.8 ug/mL (0.0-15.0) 01/11/25 17:00 Microbiology Microbiology: Microbiology 01/09/25 13:35 Blood Culture (Wb) - Right Hand Blood Culture - Final No growth in 5 days. 01/09/25 13:30 Blood Culture (Wb) - Finger Blood Culture - Final No growth in 5 days. 01/09/25 13:28 Urine Catheter - Catheter Urine Culture - Final Yeast, not Mary albicans Pharmacy Plan for Drug Dosing Pharmacy Plan for Drug Dosing: VANCOMYCIN LEVEL RECEIVED Current Vancomycin Dose: 1000MG IV Q12H Number of Doses Received: 6 (of current regimen) Vancomycin Level: 21.4 Hours Since Last Dose: 12hrs Renal Function: 0.86 Renal Function Trend: stable Lab/Micro: ngtd Vancomycin Plan/Comments: patient had a trough drawn which resulted in a value of 21.4 (goal 15-20). patient's trough is above goal. Will hold subsequent doses of vancomycin and recheck a trough in 12 hours. Once trough is below 20, will resume scheduled dosing. Pending Level: *RANDOM* 01/15/25 @0600 Pharmacy Service will continue to monitor and adjust dosing as required.
[2025-01-14] MEDS: cycloBENZAPRine HCl 10 MG Tablet PO (21:34)
[2025-01-15 00:19] LABS: Bedside Glucose 173 mg/dL (74-106)
[2025-01-15 03:05] VITALS: BMI 33.2
[2025-01-15 03:31] VITALS: PULSE 99
[2025-01-15] MEDS: Morphine 2 MG/ML Syringe 1 MG IV ×4 (05:02→20:52)
[2025-01-15] MEDS: Lactobacillis Acidophilus 1 CAP PO ×3 (05:05→20:59)
[2025-01-15] MEDS: Insulin Lispro 100 UNIT/ML INSULN.PEN SC ×4 (05:13→20:55)
[2025-01-15 05:16] VITALS: BP 137/63; PULSE 94; RESP 16; TEMP 36.9; O2SAT 95
[2025-01-15 06:01] LABS: Bedside Glucose 167 mg/dL (74-106)
[2025-01-15 06:49] LABS: Absolute Lymphocyte Count 1.06 X10^3/uL (0.83-4.51); Absolute Neutrophil Count 5.3 X10^3/uL (2.0-7.7); Basophil# 0.04 X10^3/uL; Basophil% 0.5 % (0-1); Eosinophil# 0.49 X10^3/uL; Eosinophils% 6.1 % (0-5); Hematocrit 23.2 % (40-54); Hemoglobin 7.9 g/dL (13.0-16.5); Lymphocyte # 1.06 X10^3/ul (0.83-4.51); Lymphocyte % 13.2 % (19-41); Mean Corp Hgb Conc 34.1 g/dL (32-36); Mean Corpuscular Hgb 29.8 pg (27.0-32.0); Mean Corpuscular Volume 87.5 fL (80-94); Monocyte# 1.09 X10^3/uL; Monocyte% 13.6 % (0-10); NRBC Flagged by Analyzer 0 % (0-5); Neutrophil # 5.25 X10^3/uL (2.7-7.7); Neutrophil % 65.6 % (47-70); Platelet Count 118 K/mm3 (150-450); RBC Distribution Width CV 18.6 % (11.6-14.6); RBC Distribution Width SD 58.1 fl (35.1-43.9); Red Blood Count 2.65 M/mm3 (4.6-6.2)
[2025-01-15 07:05] LABS: Albumin, Serum 2.2 g/dL (3.5-5.0); BUN 5 mg/dL (4-19); Creatinine, Serum 0.82 mg/dL (0.70-1.20); EST Glomerular Filtration Rate 102 (>60); Estimated Creatinine Clearance 115.58 ml/min (50-250); Globulin 2.7 g/dL (2.2-4.2); Glucose 178 mg/dL (70-99); Protein, Total 4.9 g/dL (5.9-8.4)
[2025-01-15 07:06] LABS: ALB/GLOB Ratio 0.8 RATIO (0.9-2.4); AST(SGOT) 64 U/L (<=37); Alanine Aminotransfer ALT/SGPT 56 U/L (<=46); Alkaline Phosphatase 275 U/L (40-129); Anion Gap 9 (5-15); Calcium,Total 7.8 mg/dL (7.6-11.0); Carbon Dioxide 26.7 mmol/L (21.0-32.0); Chloride 94 mmol/L (98-108); Potassium 3.2 mmol/L (3.3-5.1); Sodium Level 130 mmol/L (133-145); Total Bilirubin 2.06 mg/dL (0.00-1.30)
[2025-01-15 07:16] LABS: Vancomycin, Random Level 20.7 ug/mL (0.0-15.0)
[2025-01-15] MEDS: Sodium Bicarbonate 150 MEQ in Dextrose 5%-Water (1000mL Bag) 1,000 ML 100 MEQ IV ×2 (09:48→22:30)
[2025-01-15] MEDS: Meropenem 1 GM in 0.9% Normal Saline (100mL MB+) 100 ML IV ×2 (09:48→20:59)
[2025-01-15] MEDS: Folic Acid 1 MG Tablet PO (09:50)
[2025-01-15] MEDS: Atorvastatin Calcium 40 MG Tablet PO (09:50)
[2025-01-15] MEDS: Pantoprazole Sodium 20 MG Tablet PO (09:50)
[2025-01-15] MEDS: Magnesium Chloride 64 MG Delay Rel.Tablet 128 MG PO (09:50)
[2025-01-15] MEDS: Potassium Chloride Oral Tablet 20 MEQ 40 MEQ PO (09:50)
[2025-01-15] MEDS: Calcium Carb/Vitamin D 1 TABLET Tablet PO (09:51)
[2025-01-15] MEDS: 0.9% Saline Lock 10 ML Syringe IV ×2 (09:51→20:52)
[2025-01-15] MEDS: Na Biphos/Potassium Phosphate PACKET 1 PACKET PO ×2 (09:51→20:59)
[2025-01-15] MEDS: Midodrine HCl 5 MG Tablet 10 MG PO ×3 (09:52→16:33)
[2025-01-15] MEDS: Insulin Glargine-YFGN 100 UNIT/ML Pen 20 UNIT SC ×2 (09:53→20:55)
[2025-01-15] MEDS: Sodium Bicarbonate 650 MG Tablet PO ×2 (09:56→20:59)
[2025-01-15] MEDS: rifAXIMin 550 MG Tablet PO ×2 (09:57→20:59)
[2025-01-15] MEDS: Ascorbic Acid 500 MG Tablet PO ×2 (09:57→20:59)
[2025-01-15] MEDS: Thiamine Hydrochloride 100 MG Tablet PO (09:59)
[2025-01-15] MEDS: Zinc Sulfate 50 mg zinc (220 mg) ORAL capsule PO (09:59)
[2025-01-15 10:08] VITALS: BP 123/77; PULSE 98; RESP 14; TEMP 36.3; O2SAT 98
[2025-01-15 11:29] LABS: Bedside Glucose 221 mg/dL (74-106)
--- NOTE | 2025-01-15 13:21 | PN_ITS ---
Subjective Subjective Patient seen and examined. He still complain of the back pain. He had no other complaints. Review of symptoms otherwise negative and he has remained hemodynamically stable. Objective Data Objective Data Vital Signs: Vital Signs Temp Pulse Resp BP Pulse Ox O2 Del Method 97.4 F L 98 14 123/77 H 98 Room Air 01/15/25 10:08 01/15/25 10:08 01/15/25 10:08 01/15/25 10:08 01/15/25 10:08 01/15/25 10:08 Oxygen Delivery Method Room Air Weight: 224 lb 13.944 oz Body Mass Index (BMI) 33.2 Intake & Output: Intake and Output for Last 24 Hours 01/13/25 01/14/25 01/15/25 23:59 23:59 23:59 Intake Total 2798.33 / 2798.33 3281.67 / 3281.67 2870 / 2870 Output Total 675 / 675 425 / 425 625 / 625 Balance 2123.33 / 2123.33 2856.67 / 2856.67 2245 / 2245 Lab / Micro Data 01/15/25 06:10 01/15/25 06:10 Labs: Laboratory Results - last 24 hr 01/14/25 16:20: POC Glucose 194 H 01/14/25 18:15: Vancomycin Trough 21.4 H 01/14/25 21:26: POC Glucose 173 H 01/15/25 05:12: POC Glucose 167 H 01/15/25 06:10: WBC 8.0, RBC 2.65 L, Hgb 7.9 L, Hct 23.2 L, MCV 87.5, MCH 29.8, MCHC 34.1, RDW Std Deviation 58.1 H, RDW Coeff of Francis 18.6 H, Plt Count 118 L, MPV 11.0, Immature Gran % (Auto) 1.000 H, Neut % (Auto) 65.6, Lymph % (Auto) 13.2 L, [place] % (Auto) 13.6 H, Eos % (Auto) 6.1 H, Baso % (Auto) 0.5, Absolute Neuts (auto) 5.3, Absolute Lymphs (auto) 1.06, Nucleated RBC % 0, Sodium 130 L, Potassium 3.2 L, Chloride 94 L, Carbon Dioxide 26.7, Anion Gap 9, BUN 5, Creatinine 0.82, Estim Creat Clear Calc 115.58, Est GFR (MDRD) Non-Af 102, B UN/Creatinine Ratio 6.0 L, Glucose 178 H, Calcium 7.8, Total Bilirubin 2.06 H, A ST 64 H, ALT 56 H, Alkaline Phosphatase 275 H, Total Protein 4.9 L, Albumin 2.2 L, Globulin 2.7, Albumin/Globulin Ratio 0.8 L, Random Vancomycin 20.7 H 01/15/25 09:55: POC Glucose 221 H Micro: Microbiology 01/09/25 13:35 Blood Culture (Wb) - Right Hand Blood Culture - Final No growth in 5 days. 01/09/25 13:30 Blood Culture (Wb) - Finger Blood Culture - Final No growth in 5 days. 01/09/25 13:28 Urine Catheter - Catheter Urine Culture - Final Yeast, not Mary albicans Radiography Diagnostic Testing: Radiology Impression Lumbar Spine MRI 01/13/25 10:30 IMPRESSION: 1. There are Schmorl's nodes at multiple vertebral endplates of the lower thoracic and lumbar spine. 2. There is associated anterior wedging of T11 and T12. Review of the thoracic spine MR images, of the same day, demonstrate Schmorl's nodes at multiple vertebral endplates throughout the thoracic spine, with associated anterior wedging of multiple thoracic vertebral bodies, consistent with Scheuermann's kyphosis. 3. There is degenerative disc disease, L1-2, L4-5 and L5-S1, with central canal stenosis at L1-2. 4. There is multilevel facet arthropathy of the lumbar spine with lateral recess stenosis and foraminal narrowing at multiple levels, as described. Reading Location: [place] [id number] Physical Exam Const alert, oriented x3 and no apparent distress General Appearance: cooperative HEENT normocephalic, head/scalp atraumatic, hearing grossly normal bilaterally and moist oral mucous membranes Eyes PERRL, EOMs intact bilaterally and conjunctivae normal Eyes Narrative: Conjunctival pallor present bilaterally, no scleral icterus Neck no lymphadenopathy, supple and no JVD Neck Narrative: Trachea midline Lymph Lymphatic: no lymphedema noted Resp Resp Narrative: Mildly diminished breath sounds bibasilarly. No wheezes or crackles. Cardio regular rate, regular rhythm, S1 normal heart sound, S2 normal heart sound and no murmurs GI normal to inspection, nondistended, normoactive bowel sounds and soft to palpation GI Narrative: umbilical hernia only minimally tender, reduced by general surgery Palpation: hernia Extremity normal capillary refill, no clubbing, cyanosis or edema and no calf tenderness Extremity Narrative: P General Extremity: no tenderness to palpation of joints or extremities Skin no petechiae and no mottling Skin Narrative: mildly jaundiced, this is chronic General Skin Exam: no breakdown Neuro oriented x3 and moves all extremities Speech: speech normal Motor Exam: general weakness Psych thought process normal, cooperative and affect normal Mood & Affect: flat affect Assessment & Plan Assessment/Plan (1) Sepsis: (2) Abnormal urinalysis: PLAN: Plan #Sepsis due to UTI * Hypotension has resolved. Blood pressure stable. * He does have a history of known left-sided staghorn calculi and stenting and follows with Dr. Rascon * Continue broad-spectrum antibiotics with vancomycin and meropenem * Blood culture showed no growth after 5 days. Urine cultures growing yeast not Mary albicans\ * will complete a 5 day course of antibiotics * #Lactic acidosis: Likely due to sepsis. Resolved with hydration. #ISABEL: Resolved. #Hypokalemia: Potassium is 3.2. Will replace and trend. #Umbilical hernia * Was evaluated by general surgery and the hernia was reduced. Is no longer tender. * #History of compression fractures of T8-T12 * PT OT on board. Fall precautions. * patient still complaining of severe back pain. * MRI of the lumbar spine showed Schmorl's nodules at multiple vertebral endplates of the lower thoracic and lumbar spine with associated anterior wedging of T11 and 12 and review of the thoracic spine MRI images demonstrated Schmorl's nodes at multiple vertebral endplates throughout the thoracic spine with associated anterior wedging of multiple blastic vertebral bodies consistent with Shermans kyphosis and multilevel facet arthropathy of the lumbar spine with lateral recess stenosis and foraminal narrowing. * Thoracic MRI showed abnormal marrow signal at T12 and L1 with no acute compression deformity identified and cannot exclude metastatic involvement of these 2 vertebral bodies and mild spinal stenosis of the level of T10-11 and T11-T12 * Patient PSA is normal. CT of the abdomen pelvis showed no evidence of any malignancy. I did get a CT of the chest today also which showed no evidence of malignancy. His total protein level is not elevated and total albumin level is also normal * I therefore do not see any evidence of malignancy. He does have a history of smoking but as stated the CT chest showed no evidence of any lung nodules or malignancy. * CT of the chest showed partially visualized severe degenerative changes of T11 and 12 with areas of erosive changes and lytic lesions as well as cirrhosis and ascites. * Pain management consulted. WIll see patient on Friday * Patient will need follow-up on outpatient basis with PCP for further workup for any malignancy. * PT OT on board. Fall precautions. #Hypomagnesemia: Resolved with replacement. #History of nonalcoholic liver disease with cirrhosis * On rifaximin and lactulose. Aldactone and nadolol held on account of hypotension * #Acute on chronic anemia * Hemoglobin is 7.9 today; he was transfused with one unit of pRBC during this admission. Baseline is around 8-9 though he has been as low as 7.2 before. * No clear evidence of bleeding. * May be due to his history of liver disease also. * stool for ocult blood pending * #Chronic thrombocytopenia: Platelets are 118 today. As stated this is chronic. Likely due to chronic liver disease. Will monitor. #History of venous thrombosis: * Not anticoagulated due to history of hematuria. Will monitor. #History of hypotension: On midodrine. Continue midodrine #GERD: On PPI #Type 2 diabetes mellitus: On Lantus. Insulin sliding scale. Accu-Cheks ACHS. #Hyperlipidemia: On statin DVT prophylaxis: SCDs Disposition: DC to his facility when medically stable. Patient prefers to wait to see pain management on Friday before discharge as he does not think he will be able to deal with the severe back pain at home. Charges/Coding Visit Charges Inpatient E&M: 56705 Subs Hosp L2
[2025-01-15 16:24] VITALS: BP 136/76; PULSE 100; RESP 18; TEMP 36.4; O2SAT 95
[2025-01-15 16:57] LABS: Bedside Glucose 240 mg/dL (74-106)
--- NOTE | 2025-01-15 18:46 | PCM.RX.CS ---
Consult Antibiotic Management Pharmacy has been consulted to manage selected antibiotic: Vancomycin Type of Intervention Type of Consult: Follow-up Suspected Infection Suspected Infection: Sepsis and Other (uti) Labs Labs: Sodium 130 mmol/L (133-145) L 01/15/25 06:10 Potassium 3.2 mmol/L (3.3-5.1) L 01/15/25 06:10 Chloride 94 mmol/L (98-108) L 01/15/25 06:10 Carbon Dioxide 26.7 mmol/L (21.0-32.0) 01/15/25 06:10 Anion Gap 9 (5-15) 01/15/25 06:10 BUN 5 mg/dL (4-19) 01/15/25 06:10 Creatinine 0.82 mg/dL (0.70-1.20) 01/15/25 06:10 Est GFR (MDRD) Non-Af 102 (>60) 01/15/25 06:10 BUN/Creatinine Ratio 6.0 RATIO (10-20) L 01/15/25 06:10 Glucose 178 mg/dL (70-99) H 01/15/25 06:10 Vancomycin Trough 21.4 ug/mL (5.0-15.0) H 01/14/25 18:15 Random Vancomycin 20.7 ug/mL (0.0-15.0) H 01/15/25 06:10 Microbiology Microbiology: Microbiology 01/09/25 13:35 Blood Culture (Wb) - Right Hand Blood Culture - Final No growth in 5 days. 01/09/25 13:30 Blood Culture (Wb) - Finger Blood Culture - Final No growth in 5 days. 01/09/25 13:28 Urine Catheter - Catheter Urine Culture - Final Yeast, not Mary albicans Goal Trough Goal Trough: 15-20 mcg/mL Pharmacy Plan for Drug Dosing Pharmacy Plan for Drug Dosing: VANCOMYCIN LEVEL RECEIVED Current Vancomycin Dose: current dose on hold due to elevated trough Number of Doses Received: Vancomycin Level: random level resulted at 20.7 (only a 0.7 drop in last 12 hours) Hours Since Last Dose: 24 hours since last 1000mg dose Renal Function: 0.86 Renal Function Trend: stable Lab/Micro: Vancomycin Plan/Comments: level has dropped 0.7 in last 12 hours. recommend holding for 24 hours and checking another random level on 01/16/25 at 0600 Pending Level: 01/16/25 at 0600 Pharmacy Service will continue to monitor and adjust dosing as required. Follow-Up Labs Follow-Up Labs: Trough: Vancomycin (random level 01/16/25 at 0600)
[2025-01-15 20:51] VITALS: BP 123/63; PULSE 102; RESP 16; TEMP 36.9; O2SAT 96
[2025-01-15] MEDS: cycloBENZAPRine HCl 10 MG Tablet PO (20:59)
[2025-01-15 21:20] LABS: Bedside Glucose 237 mg/dL (74-106)
[2025-01-16] MEDS: 0.9% Saline Lock 10 ML Syringe IV ×3 (02:23→20:59)
[2025-01-16] MEDS: Morphine 2 MG/ML Syringe 1 MG IV ×4 (02:23→21:00)
[2025-01-16 02:50] VITALS: BP 127/71; PULSE 102; RESP 18; TEMP 37.5; O2SAT 96
[2025-01-16 05:07] VITALS: BMI 33.3
[2025-01-16] MEDS: Lactobacillis Acidophilus 1 CAP PO ×3 (06:14→21:07)
[2025-01-16 06:15] LABS: Absolute Lymphocyte Count 1.16 X10^3/uL (0.83-4.51); Absolute Neutrophil Count 5.2 X10^3/uL (2.0-7.7); Basophil# 0.03 X10^3/uL; Basophil% 0.4 % (0-1); Eosinophil# 0.52 X10^3/uL; Eosinophils% 6.5 % (0-5); Hematocrit 22.8 % (40-54); Hemoglobin 7.8 g/dL (13.0-16.5); Lymphocyte # 1.16 X10^3/ul (0.83-4.51); Lymphocyte % 14.6 % (19-41); Mean Corp Hgb Conc 34.2 g/dL (32-36); Mean Corpuscular Hgb 30.2 pg (27.0-32.0); Mean Corpuscular Volume 88.4 fL (80-94); Mean Platelet Vol. 10.8 fl (6.2-12.0); Monocyte# 1.01 X10^3/uL; Monocyte% 12.7 % (0-10); NRBC Flagged by Analyzer 0 % (0-5); Neutrophil # 5.15 X10^3/uL (2.7-7.7); Neutrophil % 64.9 % (47-70); Platelet Count 111 K/mm3 (150-450); RBC Distribution Width CV 18.5 % (11.6-14.6); RBC Distribution Width SD 57.9 fl (35.1-43.9); Red Blood Count 2.58 M/mm3 (4.6-6.2); White Blood Count 7.9 K/mm3 (4.4-11.0)
[2025-01-16] MEDS: Insulin Lispro 100 UNIT/ML INSULN.PEN SC ×4 (06:15→21:04)
[2025-01-16 06:37] LABS: Bedside Glucose 173 mg/dL (74-106)
[2025-01-16 07:48] LABS: Vancomycin, Random Level 7.7 ug/mL (0.0-15.0)
[2025-01-16 08:59] VITALS: BP 122/70; PULSE 104; RESP 16; TEMP 37.4; O2SAT 94
[2025-01-16] MEDS: Vancomycin HCl 1,250 MG in 0.9% Normal Saline (250mL Bag) 250 ML 167 MG IV ×2 (09:01→21:01)
[2025-01-16] MEDS: Insulin Glargine-YFGN 100 UNIT/ML Pen 20 UNIT SC ×2 (09:06→21:04)
[2025-01-16] MEDS: Midodrine HCl 5 MG Tablet 10 MG PO ×2 (09:06→13:43)
[2025-01-16] MEDS: Calcium Carb/Vitamin D 1 TABLET Tablet PO (09:07)
[2025-01-16] MEDS: Thiamine Hydrochloride 100 MG Tablet PO (09:07)
[2025-01-16] MEDS: Magnesium Chloride 64 MG Delay Rel.Tablet 128 MG PO (09:07)
[2025-01-16] MEDS: Folic Acid 1 MG Tablet PO (09:07)
[2025-01-16] MEDS: Pantoprazole Sodium 20 MG Tablet PO (09:07)
[2025-01-16] MEDS: rifAXIMin 550 MG Tablet PO ×2 (09:07→21:06)
[2025-01-16] MEDS: Zinc Sulfate 50 mg zinc (220 mg) ORAL capsule PO (09:08)
[2025-01-16] MEDS: Na Biphos/Potassium Phosphate PACKET 1 PACKET PO ×2 (09:08→21:07)
[2025-01-16] MEDS: Sodium Bicarbonate 650 MG Tablet PO ×2 (09:09→21:06)
[2025-01-16] MEDS: Atorvastatin Calcium 40 MG Tablet PO (09:09)
[2025-01-16] MEDS: Ascorbic Acid 500 MG Tablet PO ×2 (09:09→21:06)
[2025-01-16] MEDS: Sodium Bicarbonate 150 MEQ in Dextrose 5%-Water (1000mL Bag) 1,000 ML 100 MEQ IV ×2 (10:42→22:38)
[2025-01-16] MEDS: Meropenem 1 GM in 0.9% Normal Saline (100mL MB+) 100 ML IV ×2 (11:38→23:10)
[2025-01-16 12:03] LABS: Bedside Glucose 177 mg/dL (74-106)
--- NOTE | 2025-01-16 12:36 | PCM.PROGNOTE ---
Subjective Subjective Patient seen and examined. He still complains of back pain that he states is a bit better today. He had an otherwise uneventful night. Review of systems otherwise negative. He is awaiting pain management evaluation tomorrow. Review of systems otherwise negative. Objective Data Objective Data Vital Signs: Vital Signs Temp Pulse Resp BP Pulse Ox O2 Del Method 99.3 F H 104 H 16 122/70 H 94 Room Air 01/16/25 08:59 01/16/25 08:59 01/16/25 08:59 01/16/25 08:59 01/16/25 08:59 01/16/25 10:00 Oxygen Delivery Method Room Air Weight: 225 lb 4.999 oz Body Mass Index (BMI) 33.3 Intake & Output: Intake and Output for Last 24 Hours 01/14/25 01/15/25 01/16/25 23:59 23:59 23:59 Intake Total 3281.67 / 3281.67 4540 / 4660 1785 / 1785 Output Total 425 / 425 625 / 1050 725 / 725 Balance 2856.67 / 2856.67 3915 / 3610 1060 / 1060 Lab / Micro Data 01/16/25 06:00 01/15/25 06:10 Labs: Laboratory Results - last 24 hr 01/13/25 09:38: Crossmatch See Detail 01/15/25 16:28: POC Glucose 240 H 01/15/25 20:55: POC Glucose 237 H 01/16/25 06:00: WBC 7.9, RBC 2.58 L, Hgb 7.8 L, Hct 22.8 L, MCV 88.4, MCH 30.2, MCHC 34.2, RDW Std Deviation 57.9 H, RDW Coeff of Francis 18.5 H, Plt Count 111 L, MPV 10.8, Immature Gran % (Auto) 0.900, Neut % (Auto) 64.9, Lymph % (Auto) 14.6 L, [place] % (Auto) 12.7 H, Eos % (Auto) 6.5 H, Baso % (Auto) 0.4, Absolute Neuts (auto) 5.2, Absolute Lymphs (auto) 1.16, Nucleated RBC % 0, Random Vancomycin 7.7 01/16/25 06:15: POC Glucose 173 H 01/16/25 11:40: POC Glucose 177 H Micro: Microbiology 01/09/25 13:35 Blood Culture (Wb) - Right Hand Blood Culture - Final No growth in 5 days. 01/09/25 13:30 Blood Culture (Wb) - Finger Blood Culture - Final No growth in 5 days. 01/09/25 13:28 Urine Catheter - Catheter Urine Culture - Final Yeast, not Mary albicans Physical Exam Const alert, oriented x3 and no apparent distress General Appearance: cooperative HEENT normocephalic, head/scalp atraumatic, hearing grossly normal bilaterally, moist oral mucous membranes and oropharynx normal Eyes EOMs intact bilaterally and conjunctivae normal Eyes Narrative: Conjunctival pallor present bilaterally, no scleral icterus Neck supple and no JVD Neck Narrative: Trachea midline Lymph Lymphatic: no lymphedema noted Resp Resp Narrative: Mildly diminished breath sounds bibasilarly. No wheezes or crackles. On room air. Cardio regular rate, regular rhythm, S1 normal heart sound, S2 normal heart sound and no murmurs GI normal to inspection, nondistended, normoactive bowel sounds and soft to palpation GI Narrative: umbilical hernia only minimally tender, reduced by general surgery Palpation: hernia Extremity normal capillary refill, no clubbing, cyanosis or edema and no calf tenderness General Extremity: no tenderness to palpation of joints or extremities Skin Skin Narrative: mild jaundice General Skin Exam: no breakdown Neuro oriented x3, CN's II-XII intact bilaterally and moves all extremities Speech: speech normal Motor Exam: general weakness Psych thought process normal, cooperative and affect normal Mood & Affect: flat affect Assessment & Plan Assessment/Plan (1) Sepsis: (2) Abnormal urinalysis: PLAN: Plan #Sepsis due to UTI Hypotension has resolved. Blood pressure stable. He does have a history of known left-sided staghorn calculi and stenting and follows with Dr. Rascon Continue broad-spectrum antibiotics with vancomycin and meropenem Blood culture showed no growth after 5 days. Urine cultures growing yeast not Mary albicans\ completed a 5 day course of antibiotics. #Lactic acidosis: Likely due to sepsis. Resolved with hydration. #ISABEL: Resolved. #Hypokalemia: will replace and trend. #Umbilical hernia Was evaluated by general surgery and the hernia was reduced. Is no longer tender. #History of compression fractures of T8-T12 PT OT on board. Fall precautions. patient still complaining of severe back pain. MRI of the lumbar spine showed Schmorl's nodules at multiple vertebral endplates of the lower thoracic and lumbar spine with associated anterior wedging of T11 and 12 and review of the thoracic spine MRI images demonstrated Schmorl's nodes at multiple vertebral endplates throughout the thoracic spine with associated anterior wedging of multiple blastic vertebral bodies consistent with Shermans kyphosis and multilevel facet arthropathy of the lumbar spine with lateral recess stenosis and foraminal narrowing. Thoracic MRI showed abnormal marrow signal at T12 and L1 with no acute compression deformity identified and cannot exclude metastatic involvement of these 2 vertebral bodies and mild spinal stenosis of the level of T10-11 and T11-T12 Patient PSA is normal. CT of the abdomen pelvis showed no evidence of any malignancy. I did get a CT of the chest today also which showed no evidence of malignancy. His total protein level is not elevated and total albumin level is also normal I therefore do not see any evidence of malignancy. He does have a history of smoking but as stated the CT chest showed no evidence of any lung nodules or malignancy. CT of the chest showed partially visualized severe degenerative changes of T11 and 12 with areas of erosive changes and lytic lesions as well as cirrhosis and ascites. Pain management consulted. WIll see patient on Friday Patient will need follow-up on outpatient basis with PCP for further workup for any malignancy. PT OT on board. Fall precautions. #Hypomagnesemia: Resolved with replacement. #History of nonalcoholic liver disease with cirrhosis On rifaximin and lactulose. Aldactone and nadolol held on account of hypotension #Acute on chronic anemia Hemoglobin is 7.9 today; he was transfused with one unit of pRBC during this admission. Baseline is around 8-9 though he has been as low as 7.2 before. No clear evidence of bleeding. May be due to his history of liver disease also. stool for ocult blood pending #Chronic thrombocytopenia: Platelets are 111 today. As stated this is chronic. Likely due to chronic liver disease. Will monitor. #History of venous thrombosis: Not anticoagulated due to history of hematuria. Will monitor. #History of hypotension: On midodrine. Continue midodrine #GERD: On PPI #Type 2 diabetes mellitus: On Lantus. Insulin sliding scale. Accu-Cheks ACHS. #Hyperlipidemia: On statin DVT prophylaxis: SCDs Disposition: DC to his facility when medically stable. Patient prefers to wait to see pain management on Friday before discharge as he does not think he will be able to deal with the severe back pain at home. Charges/Coding Visit Charges Inpatient E&M: 57818 Subs Hosp L2
[2025-01-16 13:12] LABS: ALB/GLOB Ratio 0.9 RATIO (0.9-2.4); AST(SGOT) 51 U/L (<=37); Alanine Aminotransfer ALT/SGPT 49 U/L (<=46); Albumin, Serum 2.2 g/dL (3.5-5.0); Alkaline Phosphatase 247 U/L (40-129); Anion Gap 7 (5-15); BUN 6 mg/dL (4-19); BUN/Creat Ratio 7.1 RATIO (10-20); Calcium,Total 7.8 mg/dL (7.6-11.0); Carbon Dioxide 31.1 mmol/L (21.0-32.0); Chloride 93 mmol/L (98-108); EST Glomerular Filtration Rate 103 (>60); Estimated Creatinine Clearance 118.59 ml/min (50-250); Globulin 2.5 g/dL (2.2-4.2); Glucose 174 mg/dL (70-99); Potassium 3.3 mmol/L (3.3-5.1); Protein, Total 4.8 g/dL (5.9-8.4); Sodium Level 132 mmol/L (133-145); Total Bilirubin 1.89 mg/dL (0.00-1.30)
[2025-01-16 15:50] VITALS: BP 121/75; PULSE 108; RESP 18; TEMP 36.7; O2SAT 94
[2025-01-16 16:20] LABS: Bedside Glucose 202 mg/dL (74-106)
[2025-01-16 20:59] VITALS: BP 110/61; PULSE 96; RESP 18; TEMP 37.2; O2SAT 93
[2025-01-16] MEDS: cycloBENZAPRine HCl 10 MG Tablet PO (21:07)
[2025-01-16 21:28] LABS: Bedside Glucose 227 mg/dL (74-106)
[2025-01-16] MEDS: Acetaminophen 500 MG Tablet 1000 MG PO (22:38)
[2025-01-17 03:00] VITALS: BP 129/70; PULSE 100; RESP 18; TEMP 36.9; O2SAT 96
[2025-01-17] MEDS: Morphine 2 MG/ML Syringe 1 MG IV ×3 (03:14→19:56)
[2025-01-17] MEDS: 0.9% Saline Lock 10 ML Syringe IV ×3 (03:14→19:58)
[2025-01-17 03:22] VITALS: BMI 33.2
[2025-01-17 04:41] LABS: Absolute Lymphocyte Count 1.09 X10^3/uL (0.83-4.51); Absolute Neutrophil Count 5.7 X10^3/uL (2.0-7.7); Basophil# 0.04 X10^3/uL; Basophil% 0.5 % (0-1); Eosinophil# 0.57 X10^3/uL; Eosinophils% 6.8 % (0-5); Hematocrit 22.2 % (40-54); Hemoglobin 7.5 g/dL (13.0-16.5); Lymphocyte # 1.09 X10^3/ul (0.83-4.51); Lymphocyte % 12.9 % (19-41); Mean Corp Hgb Conc 33.8 g/dL (32-36); Mean Corpuscular Volume 88.8 fL (80-94); Mean Platelet Vol. 10.7 fl (6.2-12.0); Monocyte# 0.97 X10^3/uL; Monocyte% 11.5 % (0-10); NRBC Flagged by Analyzer 0 % (0-5); Neutrophil # 5.67 X10^3/uL (2.7-7.7); Neutrophil % 67.2 % (47-70); Platelet Count 109 K/mm3 (150-450); RBC Distribution Width CV 18.8 % (11.6-14.6); RBC Distribution Width SD 58.8 fl (35.1-43.9); White Blood Count 8.4 K/mm3 (4.4-11.0)
[2025-01-17] MEDS: Insulin Lispro 100 UNIT/ML INSULN.PEN SC ×3 (06:30→21:05)
[2025-01-17] MEDS: Lactobacillis Acidophilus 1 CAP PO ×3 (06:30→21:05)
[2025-01-17 06:50] LABS: Bedside Glucose 173 mg/dL (74-106)
[2025-01-17 09:13] VITALS: BP 104/63; PULSE 94; RESP 18; TEMP 37; O2SAT 97
[2025-01-17] MEDS: Ascorbic Acid 500 MG Tablet PO ×2 (09:18→21:06)
[2025-01-17] MEDS: Magnesium Chloride 64 MG Delay Rel.Tablet 128 MG PO (09:18)
[2025-01-17] MEDS: Midodrine HCl 5 MG Tablet 10 MG PO ×3 (09:18→16:50)
[2025-01-17] MEDS: Sodium Bicarbonate 650 MG Tablet PO ×2 (09:18→21:06)
[2025-01-17] MEDS: Folic Acid 1 MG Tablet PO (09:19)
[2025-01-17] MEDS: Na Biphos/Potassium Phosphate PACKET 1 PACKET PO ×2 (09:19→21:06)
[2025-01-17] MEDS: Zinc Sulfate 50 mg zinc (220 mg) ORAL capsule PO (09:19)
[2025-01-17] MEDS: Pantoprazole Sodium 20 MG Tablet PO (09:19)
[2025-01-17] MEDS: rifAXIMin 550 MG Tablet PO ×2 (09:19→21:06)
[2025-01-17] MEDS: Calcium Carb/Vitamin D 1 TABLET Tablet PO (09:19)
[2025-01-17] MEDS: Thiamine Hydrochloride 100 MG Tablet PO (09:19)
[2025-01-17] MEDS: Atorvastatin Calcium 40 MG Tablet PO (09:19)
[2025-01-17] MEDS: Insulin Glargine-YFGN 100 UNIT/ML Pen 20 UNIT SC ×2 (09:27→21:05)
[2025-01-17] MEDS: Acetaminophen 500 MG Tablet 1000 MG PO (09:43)
[2025-01-17] MEDS: Vancomycin HCl 1,250 MG in 0.9% Normal Saline (250mL Bag) 250 ML 167 MG IV (09:48)
[2025-01-17] MEDS: Meropenem 1 GM in 0.9% Normal Saline (100mL MB+) 100 ML IV (09:53)
[2025-01-17 11:54] LABS: Bedside Glucose 141 mg/dL (74-106)
[2025-01-17 14:13] VITALS: BP 114/58; PULSE 99; RESP 16; TEMP 36.9; O2SAT 94
--- NOTE | 2025-01-17 14:20 | PN.HOSP_ITS ---
Reason for Visit Reason for Visit: Diagnoses Sepsis, unspecified organism (01/09/25) Elevated white blood cell count, unspecified (01/09/25) Acidosis, unspecified (01/09/25) Umbilical hernia without obstruction or gangrene (01/09/25) Acute kidney failure, unspecified (01/09/25) Unspecified abnormal findings in urine (01/09/25) Objective Data Objective Data Vital Signs: Vital Signs Temp Pulse Resp BP Pulse Ox O2 Del Method 98.5 F 99 16 114/58 L 94 Room Air 01/17/25 14:13 01/17/25 14:13 01/17/25 14:13 01/17/25 14:13 01/17/25 14:13 01/17/25 14:13 Oxygen Delivery Method Room Air Weight: 224 lb 13.944 oz Body Mass Index (BMI) 33.2 Intake & Output: Intake and Output for Last 24 Hours 01/15/25 01/16/25 01/17/25 23:59 23:59 23:59 Intake Total 4540 / 4660 3580 / 3820 1478.33 / 1478.33 Output Total 625 / 1050 725 / 975 400 / 400 Balance 3915 / 3610 2855 / 2845 1078.33 / 1078.33 Lab / Micro Data 01/17/25 04:09 01/16/25 06:00 Labs: Laboratory Results - last 24 hr 01/16/25 15:54: POC Glucose 202 H 01/16/25 21:03: POC Glucose 227 H 01/17/25 04:09: WBC 8.4, RBC 2.50 L, Hgb 7.5 L, Hct 22.2 L, MCV 88.8, MCH 30.0, MCHC 33.8, RDW Std Deviation 58.8 H, RDW Coeff of Francis 18.8 H, Plt Count 109 L, MPV 10.7, Immature Gran % (Auto) 1.100 H, Neut % (Auto) 67.2, Lymph % (Auto) 12.9 L, [place] % (Auto) 11.5 H, Eos % (Auto) 6.8 H, Baso % (Auto) 0.5, Absolute Neuts (auto) 5.7, Absolute Lymphs (auto) 1.09, Nucleated RBC % 0 01/17/25 06:28: POC Glucose 173 H 01/17/25 11:26: POC Glucose 141 H Micro: Microbiology 01/09/25 13:35 Blood Culture (Wb) - Right Hand Blood Culture - Final No growth in 5 days. 01/09/25 13:30 Blood Culture (Wb) - Finger Blood Culture - Final No growth in 5 days. 01/09/25 13:28 Urine Catheter - Catheter Urine Culture - Final Yeast, not Mary albicans Physical Exam Narrative Seen and examined Patient admitted for complaint of sepsis due to UTI but now UTI resolved and patient complained of back pain and imaging showed compression fracture. Complain of pain / on moving/turning around on the bed Physical exam General: Alert, Oriented x3, Cooperative HEENT: Atraumatic, PERRLA, EOMI, Normocephalic. Oral: No Gingival or Mucosal Lesions/ Ulcerations Neck: Supple, No JVD, Negative Carotid Bruits Chest wall/Lungs: Air entry diminished in bilateral lung bases. No crepitation/rhonchi Cardiovascular: Regular rate and rhythm, Normal S1,S2, No M/G/R Abdomen: Bowel Sounds Present, Soft, Non Tender, mildly distended abdomen : No dysuria. No renal angle tenderness. No suprapubic tenderness. Extremities: Bilateral 2-3+ pitting LE edema, Capillary Refill Less than 3 Seconds Skin: Mild bruise over abdomen Musculoskeletal: No Tenderness to Palpation of Joints or Extremities Spine: Tenderness present over lumbar spine. Neurological: Cranial nerves II-XII grossly intact, DTR 2+/4. No acute focal neurological deficit. Psych/Mental Status: Normal Affect, Appropriate. Assessment & Plan Assessment/Plan (1) Sepsis: (2) Abnormal urinalysis: PLAN: Plan #Sepsis due to UTI * Hypotension has resolved. Blood pressure stable. * He does have a history of known left-sided staghorn calculi and stenting and follows with Dr. Rascon * Continue broad-spectrum antibiotics with vancomycin and meropenem * Blood culture showed no growth after 5 days. Urine cultures growing yeast not Mary albicans\ 01/17: Sepsis resolved. Urine culture shows is not Mary albicans. That might be commensal/colonization. Blood culture negative for 5 days. Patient is on meropenem since admission 01/09 had total 8 days of antibiotics therefore discontinued and added vancomycin in the beginning #Lactic acidosis: Likely due to sepsis. Resolved with hydration. #ISABEL: Resolved. #Hypokalemia: will replace and trend. #Umbilical hernia * Was evaluated by general surgery and the hernia was reduced. Is no longer tender. * #History of compression fractures of T8-T12 * PT OT on board. Fall precautions. * patient still complaining of severe back pain. * MRI of the lumbar spine showed Schmorl's nodules at multiple vertebral endplates of the lower thoracic and lumbar spine with associated anterior wedging of T11 and 12 and review of the thoracic spine MRI images demonstrated Schmorl's nodes at multiple vertebral endplates throughout the thoracic spine with associated anterior wedging of multiple blastic vertebral bodies consistent with Shermans kyphosis and multilevel facet arthropathy of the lumbar spine with lateral recess stenosis and foraminal narrowing. * Thoracic MRI showed abnormal marrow signal at T12 and L1 with no acute compression deformity identified and cannot exclude metastatic involvement of these 2 vertebral bodies and mild spinal stenosis of the level of T10-11 and T11-T12 * Patient PSA is normal. CT of the abdomen pelvis showed no evidence of any malignancy. I did get a CT of the chest today also which showed no evidence of malignancy. His total protein level is not elevated and total albumin level is also normal * He does have a history of smoking but as stated the CT chest showed no evidence of any lung nodules or malignancy. * CT of the chest showed partially visualized severe degenerative changes of T11 and 12 with areas of erosive changes and lytic lesions as well as cirrhosis and ascites. * Pain management consulted. WIll see patient on Friday * Patient will need follow-up on outpatient basis with PCP for further workup for any malignancy. * PT OT on board. Fall precautions. 01/17: We called Dr. Bautista and he said either he or his partner will see the patient and recommend accordingly. Patient has pre-CERT for going to defined SNF. #Hypomagnesemia: Resolved with replacement. #History of nonalcoholic liver disease with cirrhosis * On rifaximin and lactulose. Aldactone and nadolol held on account of hypotension * #Acute on chronic anemia * Hemoglobin is 7.9 today; he was transfused with one unit of pRBC during this admission. Baseline is around 8-9 though he has been as low as 7.2 before. * No clear evidence of bleeding. * May be due to his history of liver disease also. * stool for ocult blood pending * #Chronic thrombocytopenia: Platelet count is about 109K. It has been about 109 K- 130K #History of venous thrombosis: * Not anticoagulated due to history of hematuria. Will monitor. #History of hypotension: On midodrine. Continue midodrine #GERD: On PPI #Type 2 diabetes mellitus: On Lantus. Insulin sliding scale. Accu-Cheks ACHS. #Hyperlipidemia: On statin DVT prophylaxis: SCDs Charges/Coding Visit Charges Inpatient E&M: 67858 Subs Hosp L2
--- NOTE | 2025-01-17 14:51 | CASEMGMT ---
Discharge Planning Updates sent to [facility]. India Platt DC Planning Asst.
--- NOTE | 2025-01-17 15:22 | PCM.CONS.GEN ---
Assessment & Plan Assessment/Plan (1) Spinal stenosis, lumbar region with neurogenic claudication: (2) Compression fracture of thoracic spine, non-traumatic: PLAN: Plan Thoracic MRI: IMPRESSION: Abnormal marrow signal at T12 and L1. No acute compression deformity identified. Can not exclude metastatic involvement of these 2 vertebral bodies. Degenerative changes in the remainder of the lumbar spine. There is mild spinal stenosis at the level of T10-T11 and T11-T12. Lumbar MRI : IMPRESSION: 1. There are Schmorl's nodes at multiple vertebral endplates of the lower thoracic and lumbar spine. 2. There is associated anterior wedging of T11 and T12. Review of the thoracic spine MR images, of the same day, demonstrate Schmorl's nodes at multiple vertebral endplates throughout the thoracic spine, with associated anterior wedging of multiple thoracic vertebral bodies, consistent with Scheuermann's kyphosis. 3. There is degenerative disc disease, L1-2, L4-5 and L5-S1, with central canal stenosis at L1-2. 4. There is multilevel facet arthropathy of the lumbar spine with lateral recess stenosis and foraminal narrowing at multiple levels, as described. 5: L1-L2 central canal stenosis (8mm) A/P CT/MRI showing findings that may be related to metastatic disease. Patient is precerted for SNF. Per MRI read there is no clear acute compression deformity, but findings that may be suggestive of possible malignancy associated lesions. Further evaluation was conducted to work up possible malignancy including. CT of the abdomen pelvis showed no evidence of any malignancy. I did get a CT of the chest today also which showed no evidence of malignancy. His total protein level is not elevated and total albumin level is also normal. He does have a history of smoking but as stated the CT chest showed no evidence of any lung nodules or malignancy. Currently no evidence of malignancy. PLT 109. Liver enzymes elevated mildly. Plan is for PCP to follow up per hospitalist team to continue workup for malignancy. Plan for L1-L2 LESI to help with stenosis symptomology. Discussed risks/benefits of injection including, infection, bleeding, headache, neurologic damage including paralysis etc. Patient wishes to proceed. Follow up as outpatient in pain management clinic. Otherwise, continue multimodal pain regimen. Not on AC HPI Consult Data Date of Consult: 01/17/25 HPI Narrative Reason for Consultation: Severe back pain HPI Narrative: FRANKLIN ARCHULETA, is a 59 M who is in the hospital for UTI associated sepsis. Also found of have C diff. Stay complicated by ISABEL and also found to have cirrhosis with portal htn. A1C 7.2. We are consulted to evaluated ongoing severe back pain. MRI obtained along with CT scans to rule out malignancy. Has been working with PT and OT. He has precert for SNF placement. Plan is for further workup as PCP for malignancy. He states he had back has been present for years, but worsened over the last few months. He has been using a walker the past few months for balance concerns as well. He also has had a few falls recently. The pain is in the mid and low back without radiation down the legs. The pain is improved with sitting. He is not able to ambulate far without walker he states, but this has been the case for a while. Pain can be 8-10/10 in severity when moving. [facility] Medical History (Updated 01/17/25 @ 16:[address] Buster Carmichael MD) Umbilical hernia Chronic hyponatremia Weakness Diarrhea Sepsis Acidosis, lactic Acute hypotension Acute UTI Chronic hypotension Obesity (BMI 30-39.9) Chronic back pain ISABEL (acute kidney injury) Hypotension Hepatic encephalopathy Hyperbilirubinemia Liver cirrhosis secondary to HARRIS (nonalcoholic steatohepatitis) HLD (hyperlipidemia) HTN (hypertension) Thrombocytopenia Chronic anemia Former tobacco use Diabetes mellitus, type 2 ABBY on CPAP Back pain Home Medications ?Medication ?Instructions ?Recorded ?Last Taken ?Type rifaximin 550 mg tablet (Xifaxan) 550 mg PO BID diarrhea #60 tabs 09/02/24 11/28/24 Rx acetaminophen 500 mg tablet 1,000 mg PO Q8 PRN fever or pain 10/28/24 Unknown History calcium 500 mg (as 1 tab PO DAILY supplement 10/28/24 11/28/24 History carbonate)-vitamin D3 5 mcg (200 unit) tablet (Oyster Shell Calcium-Vitamin D3) folic acid 1 mg tablet 1 mg PO DAILY supplement 10/28/24 11/28/24 History atorvastatin 40 mg tablet 40 mg PO DAILY cholesterol 11/21/24 11/27/24 History furosemide 20 mg tablet 40 mg PO DAILY diuretic 11/21/24 11/28/24 History magnesium oxide 400 mg (241.3 mg 400 mg PO DAILY supplement 11/21/24 11/28/24 History magnesium) tablet metformin 500 mg tablet,extended 500 mg PO QPM diabetes 11/21/24 11/27/24 History release 24 hr pantoprazole 20 mg tablet,delayed 20 mg PO DAILY reflux 11/21/24 11/28/24 History release sodium bicarbonate 650 mg tablet 650 mg PO BID supplement 11/21/24 11/28/24 History spironolactone 50 mg tablet 100 mg PO DAILY diuretic 11/21/24 11/28/24 History thiamine HCl (vitamin B1) 100 mg 100 mg PO DAILY supplement 11/21/24 Unknown History tablet zinc sulfate 50 mg zinc (220 mg) 50 mg PO DAILY supplement 11/21/24 11/28/24 History tablet ascorbic acid (vitamin C) 500 mg 500 mg PO BID vitamin #60 tabs 11/25/24 11/28/24 Rx tablet midodrine 10 mg tablet 10 mg PO TID blood pressure 1 11/25/24 Unknown Rx month #90 tabs lactulose 10 gram/15 mL oral 15 ml PO TID PRN constipation 11/28/24 Unknown History solution (Constulose) L.acidophil,salivari-Bifido 1 cap PO TID pobiotic #120 caps 12/02/24 Unknown Rx bifidum-Strep thermoph 175 mg capsule potassium, sodium phosphates 280 1 packet PO BID electrolytes #100 12/02/24 Unknown Rx mg-160 mg-250 mg oral powder packet ea cyclobenzaprine 10 mg tablet 10 mg PO QHS muscle relaxer 01/02/25 Unknown History ferrous sulfate 325 mg (65 mg 325 mg PO QODAY supplement 01/02/25 Unknown History iron) tablet (FeroSul) nadolol 20 mg tablet 20 mg PO DAILY bp 01/02/25 Unknown History insulin glargine-yfgn 100 unit/mL 20 unit (0.2 mL) subcut DAILY #0 mL 01/05/25 Unknown Rx (3 mL) subcutaneous pen insulin glargine-yfgn 100 unit/mL 20 unit (0.2 mL) subcut QHS #0 mL 01/05/25 Unknown Rx (3 mL) subcutaneous pen insulin lispro 100 unit/mL 10 unit (0.1 mL) subcut TIDAC #0 mL 01/05/25 Unknown Rx subcutaneous pen (Humalog KwikPen (U-100) Insulin) insulin lispro 100 unit/mL See Protocol subcut ACHS #0 mL 01/05/25 Unknown Rx subcutaneous pen (Humalog KwikPen (U-100) Insulin) Allergy/AdvReac Type Severity Reaction Status Date / Time No Known Allergies Allergy Verified 01/02/25 03:00 Family History Mother Heart disease Hypertension CAD (coronary artery disease) Myocardial infarction Father Hypertension Heart disease Heart failure Surgical History History of tonsillectomy and adenoidectomy Social History household members: significant other Smoking Status: Former smoker how long ago did patient quit smoking: Quit ~ 3-4 months prior (fall 2023), smoked 1.5 ppd since teen until quit. alcohol intake: never substance use type: does not use Physical Exam Narrative Lumbar paraspinal tenderness + bilaterally Some pain to percussion over the lumbar and lower thoracic spine SLR - bilaterally No Si tenderness. Sensation intact in lower extremities DTR 2/4 patellar 4/5 left hip flexion. Otherwise 5/5 strength in lower extremities Const alert and no apparent distress Lab / Micro Data 01/17/25 04:09 01/16/25 06:00 Labs: Laboratory Results - last 24 hr 01/16/25 15:54: POC Glucose 202 H 01/16/25 21:03: POC Glucose 227 H 01/17/25 04:09: WBC 8.4, RBC 2.50 L, Hgb 7.5 L, Hct 22.2 L, MCV 88.8, MCH 30.0, MCHC 33.8, RDW Std Deviation 58.8 H, RDW Coeff of Francis 18.8 H, Plt Count 109 L, MPV 10.7, Immature Gran % (Auto) 1.100 H, Neut % (Auto) 67.2, Lymph % (Auto) 12.9 L, [place] % (Auto) 11.5 H, Eos % (Auto) 6.8 H, Baso % (Auto) 0.5, Absolute Neuts (auto) 5.7, Absolute Lymphs (auto) 1.09, Nucleated RBC % 0 01/17/25 06:28: POC Glucose 173 H 01/17/25 11:26: POC Glucose 141 H
[2025-01-17 16:46] VITALS: BP 123/76; PULSE 96; RESP 18; TEMP 36.8; O2SAT 96
[2025-01-17 17:11] LABS: Bedside Glucose 236 mg/dL (74-106)
[2025-01-17 19:00] VITALS: PULSE 98
[2025-01-17 20:00] VITALS: BP 107/65; PULSE 98; RESP 15; TEMP 36.8; O2SAT 93
[2025-01-17] MEDS: cycloBENZAPRine HCl 10 MG Tablet PO (21:05)
[2025-01-17 22:15] LABS: Bedside Glucose 180 mg/dL (74-106)
[2025-01-18] VITALS (9 sets, daily range): BP systolic 105–122; BP diastolic 55–78; PULSE 90–103; RESP 14–16; TEMP 36.4–36.8; O2SAT 95–97; BMI 36.2
[2025-01-18 05:46] LABS: Absolute Lymphocyte Count 1.13 X10^3/uL (0.83-4.51); Absolute Neutrophil Count 5.5 X10^3/uL (2.0-7.7); Basophil# 0.05 X10^3/uL; Basophil% 0.6 % (0-1); Eosinophil# 0.49 X10^3/uL; Eosinophils% 6.1 % (0-5); Hematocrit 22.6 % (40-54); Hemoglobin 7.7 g/dL (13.0-16.5); Lymphocyte # 1.13 X10^3/ul (0.83-4.51); Mean Corp Hgb Conc 34.1 g/dL (32-36); Mean Corpuscular Hgb 30.1 pg (27.0-32.0); Mean Corpuscular Volume 88.3 fL (80-94); Mean Platelet Vol. 10.5 fl (6.2-12.0); Monocyte# 0.81 X10^3/uL; NRBC Flagged by Analyzer 0 % (0-5); Neutrophil # 5.48 X10^3/uL (2.7-7.7); Neutrophil % 68.1 % (47-70); Platelet Count 107 K/mm3 (150-450); RBC Distribution Width CV 18.7 % (11.6-14.6); RBC Distribution Width SD 58.9 fl (35.1-43.9); Red Blood Count 2.56 M/mm3 (4.6-6.2); White Blood Count 8.1 K/mm3 (4.4-11.0)
[2025-01-18 06:04] LABS: Prothrombin Time (Protime)PT. 22.9 SECONDS (11.7-14.9)
[2025-01-18 06:05] LABS: Anion Gap 8 (5-15); BUN 8 mg/dL (4-19); BUN/Creat Ratio 9.8 RATIO (10-20); Calcium,Total 7.7 mg/dL (7.6-11.0); Carbon Dioxide 31.5 mmol/L (21.0-32.0); Chloride 92 mmol/L (98-108); Creatinine, Serum 0.85 mg/dL (0.70-1.20); EST Glomerular Filtration Rate 101 (>60); Estimated Creatinine Clearance 116.49 ml/min (50-250); Glucose 228 mg/dL (70-99); Potassium 2.8 mmol/L (3.3-5.1); Sodium Level 132 mmol/L (133-145)
[2025-01-18] MEDS: Insulin Lispro 100 UNIT/ML INSULN.PEN SC ×3 (06:45→21:13)
[2025-01-18 07:05] LABS: Bedside Glucose 171 mg/dL (74-106)
[2025-01-18 08:29] LABS: Magnesium 1.6 mg/dL (1.5-2.2); Phosphorus 3.7 mg/dL (2.7-4.5)
[2025-01-18] MEDS: 0.9% Saline Lock 10 ML Syringe IV (08:33)
[2025-01-18] MEDS: Potassium Chloride 10mEq/100mL 10 MEQ/100 ML IV.SOLN. 100 MEQ IV BOLUS ×4 (08:33→12:04)
[2025-01-18] MEDS: Midodrine HCl 5 MG Tablet 10 MG PO ×3 (08:49→17:58)
[2025-01-18] MEDS: Acetaminophen 500 MG Tablet 1000 MG PO (08:56)
[2025-01-18 12:41] LABS: Bedside Glucose 142 mg/dL (74-106)
--- NOTE | 2025-01-18 12:46 | PRE.ANES_ITS ---
ASA Classification* ASA Classification ASA Classification: 3 (Recent sepsis, ISABEL, UTI, hypokalemia ) Assessment & Plan Anesthesia* Anesthesia Assessment Anesthesia Assessment: Discussed sedation and/or anesthesia options, risks, benefits, and alternatives with patient/parents/legal guardian/POA. Questions invited. The patient/parents/legal guardian/POA seems to understand and agrees to proceed with anesthesia plan. Reviewed the physical assessment, medical history, allergy history and patient home medications list prior to surgery/procedure/anesthetic and documented any changes. Performed airway and anesthesia risk assessments. Anesthesia Type Anesthesia Type: MAC History Source History Obtained from:: Patient and Chart Anesthesia Focused Assessment* Temperature: 97.5 F Pulse Rate: 94 Blood Pressure: 105/55 Respiratory Rate: 16 Pulse Ox: 95 Airway Assessment Mouth opens: >3 cm Mallampati Score: III Teeth Condition: Chipped/Broken (very poor dentition, many missing teeth) and Missing Labs Anesthesia Preop lab: CBC WBC 8.1 K/mm3 (4.4-11.0) 01/18/25 05:01/18/25 RBC 2.56 M/mm3 (4.6-6.2) L 01/18/25 05:01/18/25 Hgb 7.7 g/dL (13.0-16.5) L 01/18/25 05:21 01/18/25 Hct 22.6 % (40-54) L 01/18/25 05:21 01/18/25 Plt Count 107 K/mm3 (150-450) L 01/18/25 05:21 01/18/25 CHEMISTRY Potassium 2.8 mmol/L (3.3-5.1) L 01/18/25 05:21 01/18/25 Sodium 132 mmol/L (133-145) L 01/18/25 05:21 01/18/25 Magnesium 1.6 mg/dL (1.5-2.2) 01/18/25 05:01/18/25 Phosphorus 3.7 mg/dL (2.7-4.5) 01/18/25 05:21 01/18/25 BUN 8 mg/dL (4-19) 01/18/25 05:01/18/25 Creatinine 0.85 mg/dL (0.70-1.20) 01/18/25 05:21 01/18/25 Glucose 228 mg/dL (70-99) H 01/18/25 05:21 01/18/25 POC Glucose 142 mg/dL (74-106) H 01/18/25 11:30 01/18/25 TSH 0.826 uIU/mL (0.358-3.740) 09/04/24 23:07 02/08/28 COAG PT 22.9 SECONDS (11.7-14.9) H 01/18/25 05:21 01/02 02/25 Pre-Assessment Diagnosis/Proposed Procedure Planned Operative Procedure(s): Lumbar steroid injection L1/L2 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 When Was Last Pacemaker Check QUESTION #4 FULL TEXT: You/Your Family Experience fever (hyperthermia) with Anesthesia Last Oral Intake Last Oral intake: Last Oral Intake NPO since 00:01 01/18/25 08:57 Meds taken in AM with sips of Yes 01/18/25 08:57 water? Meds patient instructed to midodrine 01/18/25 08:57 take am of surgery tylenol PONV PONV - telecommunications sales representative: PONV - telecommunications sales representative Female HX of Motion Sickness HX of N/V After Surgery Non-Smoker Duration of Surgery greater than 60 minutes Number of Risk Factors PONV Score Height & Weight Height & Weight: Anesthesia: Height & Weight Height 5 ft 9 in 01/17/25 14:51 Weight: 111.3 kg 01/18/25 08:57 Body Mass Index (BMI) 36.2 01/18/25 03:51 Respiratory Assessment Respiratory Assessment - telecommunications sales representative: Respiratory Tract Infection Hx - telecommunications sales representative Hx Respiratory Tract Infection No 01/18/25 09:01 STOP Sleep Apnea STOP Sleep Apnea - telecommunications sales representative: STOP Sleep Apnea - telecommunications sales representative Hx Hypertension No 01/10/25 10:46 Hx Sleep Apnea Yes 01/09/25 15:31 CPAP Yes 01/09/25 15:31 BIPAP No 01/09/25 15:31 Do you snore loudly (louder than talking or can be heard Do you often feel tired/ fatigued/ sleepy during daytime? Has anyone observed you stop breathing during sleep? STOP Results Positive 01/09/25 15:31 QUESTION #5 FULL TEXT : Do you snore loudly (louder than talking or can be heard through closed doors)? 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 Specify any problems Hx of Preganancy in last 3 N/A 01/09/25 15:31 Months Nurse Filling Out Transfusion [id number] 01/09/25 15:31 & Questions: Date: 01/09/25 01/09/25 15:31 Time: 15:37 01/09/25 15:31 Patient unable to answer at this time (ie. confused, unrespo /Reproduction History /Reproductive History - telecommunications sales representative: /Reproductive Hx- telecommunications sales representative Hx Now No 01/18/25 09:01 Gestational Age (in weeks): EDC: Hx Hx Para Hx Section SAB No 01/18/25 09:01 Active Medications Active Medications: Current Medications Generic Name Dose Route Start Last Admin Trade Name Freq PRN Reason Stop Dose Admin Acetaminophen 1,000 mg 01/09/25 15:46 01/18/25 08:56 Acetaminophen 500 Mg Tablet PO 1,000 mg Q8 PRN Administration fever or pain Albuterol Sulfate 2.5 mg 01/09/25 15:46 Albuterol 2.5 Mg/3 Ml Vial.Neb. INHALATION Q2H PRN PRN SOB &/OR WHEEZING Ascorbic Acid 500 mg 01/09/25 22:00 01/18/25 11:32 Ascorbic Acid 500 Mg Tablet PO Not Given BID KRYSTIN Atorvastatin Calcium 40 mg 01/10/25 10:00 01/17/25 09:19 Atorvastatin Calcium 40 Mg Tablet PO 40 mg DAILY KRYSTIN Administration Calcium/Vitamin D 1 tablet 01/10/25 10:00 01/18/25 11:32 Calcium Carb/Vitamin D 1 Tablet Tablet PO Not Given DAILY KRYSTIN Cyclobenzaprine HCl 10 mg 01/09/25 22:00 01/17/25 21:05 Cyclobenzaprine Hcl 10 Mg Tablet PO 10 mg QHS [facility] Administration Ferrous Sulfate 325 mg 01/10/25 12:00 01/18/25 11:33 Ferrous Sulfate 325 Mg Tablet PO Not Given Q48@1200 KRYSTIN Folic Acid 1 mg 01/10/25 08:00 01/18/25 11:31 Folic Acid 1 Mg Tablet PO Not Given BREAKFAST KRYSTIN Sodium Chloride 250 mls @ 15 mls/hr 01/09/25 15:34 IV .[id number] PRN Saline Flush Sodium Chloride 250 mls @ 15 mls/hr 01/09/25 15:34 IV .[id number] PRN Additional IVPB Infusion Sodium Chloride 1,000 mls @ 15 mls/hr 01/18/25 12:45 IV .Q48H [facility] Insulin Glargine 20 unit 01/09/25 22:00 01/17/25 21:05 Insulin Glargine-Yfgn 100 Unit/Ml Pen SC 20 unit QHS [facility] Administration Insulin Glargine 20 unit 01/10/25 10:00 01/18/25 11:31 Insulin Glargine-Yfgn 100 Unit/Ml Pen SC Not Given DAILY [facility] Insulin Human Lispro 0 unit 01/09/25 16:00 01/18/25 11:33 Insulin Lispro 100 Unit/Ml Insuln.Pen SC Not Given ACHS [facility] Protocol Lactulose 10 gm 01/09/25 15:46 01/12/25 14:34 Lactulose 20 Gm/30 Ml Udc PO 10 gm TID PRN Administration constipation Magnesium Chloride 128 mg 01/10/25 10:00 01/18/25 11:31 Magnesium Chloride 64 Mg Delay Rel.Tablet PO Not Given DAILY [facility] Midodrine 10 mg 01/09/25 17:00 01/18/25 12:07 Midodrine Hcl 5 Mg Tablet PO 10 mg TIDCM KRYSTIN Administration Morphine Sulfate 1 mg 01/11/25 13:23 01/17/25 19:56 Morphine 2 Mg/Ml Syringe IV 1 mg Q4H PRN PRN Administration Pain Score 6-10 Ondansetron HCl 4 mg 01/09/25 15:46 01/12/25 13:39 Ondansetron 4 Mg/2 Ml Vial IV 4 mg Q8H PRN PRN Administration NAUSEA/VOMITING Pantoprazole Sodium 20 mg 01/10/25 10:00 01/18/25 11:32 Pantoprazole Sodium 20 Mg Tablet PO Not Given DAILY [facility] Potassium Phos/Sodium Phos 1 packet 01/09/25 22:00 01/18/25 11:32 Na Biphos/Potassium Phosphate Packet PO Not Given BID [facility] Rifaximin 550 mg 01/09/25 22:00 01/17/25 21:06 Rifaximin 550 Mg Tablet PO 550 mg BID [facility] Administration Sodium Bicarbonate 650 mg 01/09/25 22:00 01/18/25 11:32 Sodium Bicarbonate 650 Mg Tablet PO Not Given BID [facility] Sodium Chloride 10 - 40 ml 01/09/25 15:34 01/18/25 08:33 0.9% Saline Lock 10 Ml Syringe IV 20 ml UD PRN Administration SALINE FLUSH Thiamine HCl 100 mg 01/10/25 10:00 01/18/25 11:32 Thiamine Hydrochloride 100 Mg Tablet PO Not Given DAILY [facility] Medical History (Updated 01/17/25 @ 16:[address] Buster Carmichael MD) Umbilical hernia Chronic hyponatremia Weakness Diarrhea Sepsis Acidosis, lactic Acute hypotension Acute UTI Chronic hypotension Obesity (BMI 30-39.9) Chronic back pain ISABEL (acute kidney injury) Hypotension Hepatic encephalopathy Hyperbilirubinemia Liver cirrhosis secondary to HARRIS (nonalcoholic steatohepatitis) HLD (hyperlipidemia) HTN (hypertension) Thrombocytopenia Chronic anemia Former tobacco use Diabetes mellitus, type 2 ABBY on CPAP Back pain Home Medications ?Medication ?Instructions ?Recorded ?Last Taken ?Type rifaximin 550 mg tablet (Xifaxan) 550 mg PO BID diarrh ea #60 tabs 09/02/24 11/28/24 Rx acetaminophen 500 mg tablet 1,000 mg PO Q8 PRN fever o r pain 10/28/24 Unknown History calcium 500 mg (as 1 tab PO DAILY supplement 11/28/24 History carbonate)-vitamin D3 5 mcg (200 unit) tablet (Oyster Shell Calcium-Vitamin D3) folic acid 1 mg tablet 1 mg PO DAILY supplement 11/28/24 History atorvastatin 40 mg tablet 40 mg PO DAILY cholesterol 0 11/21/24 11/27/24 History furosemide 20 mg tablet 40 mg PO DAILY diuretic 11/0311/28/24 History magnesium oxide 400 mg (241.3 mg 400 mg PO DAILY suppl ement 11/21/24 11/28/24 History magnesium) tablet metformin 500 mg tablet,extended 500 mg PO QPM diabete s 11/21/24 11/27/24 History release 24 hr pantoprazole 20 mg tablet,delayed 20 mg PO DAILY reflu x 11/21/24 11/28/24 History release sodium bicarbonate 650 mg tablet 650 mg PO BID supplem ent 11/21/24 11/28/24 History spironolactone 50 mg tablet 100 mg PO DAILY diuretic 0 11/21/24 11/28/24 History thiamine HCl (vitamin B1) 100 mg 100 mg PO DAILY suppl ement 11/21/24 Unknown History tablet zinc sulfate 50 mg zinc (220 mg) 50 mg PO DAILY supple ment 11/21/24 11/28/24 History tablet ascorbic acid (vitamin C) 500 mg 500 mg PO BID vitamin #60 tabs 11/25/24 11/28/24 Rx tablet midodrine 10 mg tablet 10 mg PO TID blood pressure 1 11/25/24 Unknown Rx month #90 tabs lactulose 10 gram/15 mL oral 15 ml PO TID PRN constipa tion 11/28/24 Unknown History solution (Constulose) L.acidophil,salivari-Bifido 1 cap PO TID pobiotic #120 caps 12/02/24 Unknown Rx bifidum-Strep thermoph 175 mg capsule potassium, sodium phosphates 280 1 packet PO BID elect rolytes #100 12/02/24 Unknown Rx mg-160 mg-250 mg oral powder packet ea cyclobenzaprine 10 mg tablet 10 mg PO QHS muscle relax er 01/02/25 Unknown History ferrous sulfate 325 mg (65 mg 325 mg PO QODAY suppleme nt 01/02/25 Unknown History iron) tablet (FeroSul) nadolol 20 mg tablet 20 mg PO DAILY bp 01/02/25 U nknown History insulin glargine-yfgn 100 unit/mL 20 unit (0.2 mL) sub cut DAILY #0 mL 01/05/25 Unknown Rx (3 mL) subcutaneous pen insulin glargine-yfgn 100 unit/mL 20 unit (0.2 mL) sub cut QHS #0 mL 01/05/25 Unknown Rx (3 mL) subcutaneous pen insulin lispro 100 unit/mL 10 unit (0.1 mL) subcut TID AC #0 mL 01/05/25 Unknown Rx subcutaneous pen (Humalog KwikPen (U-100) Insulin) insulin lispro 100 unit/mL See Protocol subcut ACHS #0 mL 01/05/25 Unknown Rx subcutaneous pen (Humalog KwikPen (U-100) Insulin) Allergy/AdvReac Type Severity Reaction Status Date / Time No Known Allergies Allergy Verified 01/02/25 03:00 Family History Mother Heart disease Hypertension CAD (coronary artery disease) Myocardial infarction Father Hypertension Heart disease Heart failure Surgical History History of tonsillectomy and adenoidectomy Social History household members: significant other Smoking Status: Former smoker how long ago did patient quit smoking: Quit ~ 3-4 months prior (fall 2023), smoked 1.5 ppd since teen until quit. alcohol intake: never substance use type: does not use Review of Systems (Anesthesia) ROS Narrative System reviewed and no additional complaints, except as documented. Physical Exam Const alert and oriented x3 Nutritional Appearance: obese Resp normal respiratory effort, normal air movement and clear to auscultation bilaterally Cardio regular rate, regular rhythm, no murmurs and diaphoretic
--- NOTE | 2025-01-18 13:02 | PN.HOSP_ITS ---
Reason for Visit Reason for Visit: Diagnoses Sepsis, unspecified organism (01/09/25) Elevated white blood cell count, unspecified (01/09/25) Acidosis, unspecified (01/09/25) Umbilical hernia without obstruction or gangrene (01/09/25) Spinal stenosis, lumbar region with neurogenic claudication (01/09/25) Collapsed vertebra, not elsewhere classified, thoracic region, initial encounter for fracture (01/09/25) Acute kidney failure, unspecified (01/09/25) Unspecified abnormal findings in urine (01/09/25) Objective Data Objective Data Vital Signs: Vital Signs Temp Pulse Resp BP Pulse Ox O2 Del Method 97.5 F L 94 16 105/55 L 95 Room Air 01/18/25 12:48 01/18/25 12:48 01/18/25 12:48 01/18/25 12:48 01/18/25 12:48 01/18/25 12:10 Oxygen Delivery Method Room Air Weight: 245 lb 5.992 oz Body Mass Index (BMI) 36.2 Intake & Output: Intake and Output for Last 24 Hours 01/16/25 01/17/25 01/18/25 23:59 23:59 23:59 Intake Total 3580 / 3820 3473.33 / 3473.33 420 / 420 Output Total 725 / 975 1325 / 1325 775 / 775 Balance 2855 / 2845 2148.33 / 2148.33 -355 / -355 Lab / Micro Data 01/18/25 05:21 01/18/25 05:21 Labs: Laboratory Results - last 24 hr 01/17/25 16:45: POC Glucose 236 H 01/17/25 21:04: POC Glucose 180 H 01/18/25 05:21: WBC 8.1, RBC 2.56 L, Hgb 7.7 L, Hct 22.6 L, MCV 88.3, MCH 30.1, MCHC 34.1, RDW Std Deviation 58.9 H, RDW Coeff of Francis 18.7 H, Plt Count 107 L, MPV 10.5, Immature Gran % (Auto) 1.200 H, Neut % (Auto) 68.1, Lymph % (Auto) 14.0 L, Greer % (Auto) 10.0, Eos % (Auto) 6.1 H, Baso % (Auto) 0.6, Absolute Neuts (auto) 5.5, Absolute Lymphs (auto) 1.13, Nucleated RBC % 0, PT 22.9 H, INR 2.0, Sodium 132 L, Potassium 2.8 L, Chloride 92 L, Carbon Dioxide 31.5, Anion Gap 8, BUN 8, Creatinine 0.85, Estim Creat Clear Calc 116.49, Est GFR (MDRD) Non-Af 101, BUN/Creatinine Ratio 9.8 L, Glucose 228 H, Calcium 7.7, Phosphorus 3.7, Magnesium 1.6 01/18/25 06:43: POC Glucose 171 H 01/18/25 11:30: POC Glucose 142 H Micro: Microbiology 01/09/25 13:35 Blood Culture (Wb) - Right Hand Blood Culture - Final No growth in 5 days. 01/09/25 13:30 Blood Culture (Wb) - Finger Blood Culture - Final No growth in 5 days. 01/09/25 13:28 Urine Catheter - Catheter Urine Culture - Final Yeast, not Mary albicans Physical Exam Narrative Seen and examined Discussed with the pain management. Plan for epidural analgesia today for pain control. NASHcirrhosis Patient admitted for complaint of sepsis due to UTI but now UTI resolved and patient complained of back pain and imaging showed compression fracture. Complain of pain 8/10 on moving/turning around on the bed Physical exam General: Alert, Oriented x3, Cooperative HEENT: Atraumatic, PERRLA, EOMI, Normocephalic. Oral: No Gingival or Mucosal Lesions/ Ulcerations Neck: Supple, No JVD, Negative Carotid Bruits Chest wall/Lungs: Air entry diminished in bilateral lung bases. No crepitation/rhonchi Cardiovascular: Regular rate and rhythm, Normal S1,S2, No M/G/R Abdomen: Bowel Sounds Present, Soft, Non Tender, mildly distended abdomen, suspected ascites : No dysuria. No renal angle tenderness. No suprapubic tenderness. Extremities: Bilateral 2-3+ pitting LE edema, Capillary Refill Less than 3 Seconds Skin: Mild bruise over abdomen Musculoskeletal: No Tenderness to Palpation of Joints or Extremities Spine: Tenderness present over lumbar spine. Neurological: Cranial nerves II-XII grossly intact, DTR 2+/4. No acute focal neurological deficit. Psych/Mental Status: Normal Affect, Appropriate. Assessment & Plan Assessment/Plan (1) Sepsis: (2) Abnormal urinalysis: PLAN: Plan #Sepsis due to UTI * Hypotension has resolved. Blood pressure stable. * He does have a history of known left-sided staghorn calculi and stenting and follows with Dr. Rascon * Continue broad-spectrum antibiotics with vancomycin and meropenem * Blood culture showed no growth after 5 days. Urine cultures growing yeast not Mary albicans\ 01/17: Sepsis resolved. Urine culture shows is not Mary albicans. That might be commensal/colonization. Blood culture negative for 5 days. Patient is on meropenem since admission 01/09 had total 8 days of antibiotics therefore discontinued. Patient also had vancomycin vancomycin in the beginning of the admission #Lactic acidosis: Likely due to sepsis. Resolved with hydration. #ISABEL: Resolved. #Hypokalemia: will replace and trend. 01/08 interval severe hypokalemia, potassium of IV bolus ordered. #Umbilical hernia * Was evaluated by general surgery and the hernia was reduced. Is no longer tender. * #History of compression fractures of T8-T12 * PT OT on board. Fall precautions. * patient still complaining of severe back pain. * MRI of the lumbar spine showed Schmorl's nodules at multiple vertebral endplates of the lower thoracic and lumbar spine with associated anterior wedging of T11 and 12 and review of the thoracic spine MRI images demonstrated Schmorl's nodes at multiple vertebral endplates throughout the thoracic spine with associated anterior wedging of multiple blastic vertebral bodies consistent with Shermans kyphosis and multilevel facet arthropathy of the lumbar spine with lateral recess stenosis and foraminal narrowing. * Thoracic MRI showed abnormal marrow signal at T12 and L1 with no acute compression deformity identified and cannot exclude metastatic involvement of these 2 vertebral bodies and mild spinal stenosis of the level of T10-11 and T11-T12 * Patient PSA is normal. CT of the abdomen pelvis showed no evidence of any malignancy. I did get a CT of the chest today also which showed no evidence of malignancy. His total protein level is not elevated and total albumin level is also normal * He does have a history of smoking but as stated the CT chest showed no evidence of any lung nodules or malignancy. * CT of the chest showed partially visualized severe degenerative changes of T11 and 12 with areas of erosive changes and lytic lesions as well as cirrhosis and ascites. * Pain management consulted. WIll see patient on Friday * Patient will need follow-up on outpatient basis with PCP for further workup for any malignancy. * PT OT on board. Fall precautions. 01/17: We called Dr. Bautista and he said either he or his partner will see the patient and recommend accordingly. Patient has pre-CERT for going to defined SNF. #Hypomagnesemia: Resolved with replacement. #History of nonalcoholic liver disease with cirrhosis * On rifaximin and lactulose. Aldactone and nadolol held on account of hypotension 01/18: Patient currently on midodrine. Aldactone resumed from tomorrow a.m. ultrasound abdomen ordered for paracentesis and diagnostic labs ordered. BP is low,105/55. #Acute on chronic anemia * Hemoglobin is 7.9 today; he was transfused with one unit of pRBC during this admission. Baseline is around 8-9 though he has been as low as 7.2 before. * No clear evidence of bleeding. * May be due to his history of liver disease also. * stool for ocult blood pending #Chronic thrombocytopenia: Platelet count is about 109K. It has been about 109 K- 130K #History of venous thrombosis: * Not anticoagulated due to history of hematuria. Will monitor. #History of hypotension: On midodrine. Continue midodrine #GERD: On PPI #Type 2 diabetes mellitus: On Lantus. Insulin sliding scale. Accu-Cheks ACHS. #Hyperlipidemia: On statin DVT prophylaxis: SCDs Charges/Coding Visit Charges Inpatient E&M: 77400 Subs Hosp L2
--- NOTE | 2025-01-18 13:02 | US_ITS ---
PROCEDURE: ABDOMEN LIMITED 01/18/2025 REASON FOR EXAM: HARRIS CIRRHOSIS TECHNIQUE: ABDOMEN LIMITED COMPARISON: 01/09/2025 CT. FINDINGS: Liver: Measures 16.3 cm. Heterogeneous echotexture with a nodular surface contour indicating cirrhosis. No visualized masses. Hepatopetal flow. Gallbladder: Not visualized and may be surgically absent. Common bile duct: 4 mm. Pancreas: Not well visualized due to bowel gas. Kidneys: The right kidney measures 11.0. Spleen: Measures 15.9 cm. . US/Abdomen Limited IMPRESSION: Cirrhosis. Splenomegaly. Nonvisualization of the gallbladder which may be contracted, surgically absent, or obscured by bowel gas. Correlate with surgical history. Reading Location: [place] [id number]
--- NOTE | 2025-01-18 13:08 | US_ITS ---
PROCEDURE: PARACENTESIS WITH US 01/18/2025 REASON FOR EXAM: CIRRHOSIS WITH SUSPECTED ASCITES TECHNIQUE: PARACENTESIS WITH US COMPARISON: None FINDINGS: Right lower quadrant marker is placed, fluid it is located 2.9 cm away from the skin surface. No loculated fluid. Amount of fluid drained 2650 cc. DOPPLER: Color Doppler: Normal color flow doppler signal Spectral Doppler: Normal arterial inflow and venous outflow signal US/Paracentesis with US IMPRESSION: Right lower quadrant marker was applied for paracentesis with drain the fluid v olume of 2650 cc. Reading [facility] [address]
--- NOTE | 2025-01-18 14:35 | FLU_PTH ---
PATIENT: FRANKLIN ARCHULETA LOC: [facility] U#:[id number] AGE/SX: 59/M ROOM: [facility] RE01/09/[address]: Dr. Anurag Irene MD : 1965 BED: 1 DIS: 01/21/2025 SPEC #: [id number] RECD: 01/18/25 15:20 STATUS: ARAM REQ #: [id number] ARCHIE: 01/18/25 14:[address]: Anurag Irene DEPT: CYTOLOGY RECD BY: Raul Clemens ENTERED: 01/19/25 06:58 SP TYPE: Fluid OTHR DR: MD Dr. Yaritza Thao DO Dr. Nana Yaa Koram, MD Dr. Steven A Wanek, MD Ashley Tannhof, COMMUNITY WORKER-C Tissues: A - PARACENTESIS FLUID Procedures: Special Stain Group II Surgery Specimen Level IV Cytospin Fluid HEADER OPERATION: Ultrasound guided paracentesis PRE-OP DIAGNOSIS: Ascites TISSUE SUBMITTED: A- Paracentesis fluid for cytology DIAGNOSIS CYTOLOGY A. Peritoneal fluid, paracentesis, (cytospin, cellblock): * No malignant cells identified. CYTOLOGY STUDY Slides are reviewed. CYTOLOGY GROSS A. Received is 90 ml of light-yellow fluid labeled with the patient's name and and designated per the requisition as Paracentesis fluid. Submitted for cytology and cell block preparation. Mr 01/19/2025 CPT: 43428, 23165
[2025-01-18] MEDS: Lidocaine 2% (20 ml mdv) 20 ML Vial INFILT (14:37)
--- NOTE | 2025-01-18 14:46 | CASEMGMT ---
Patient will need another insurance authorization as his previous one has . [facility]. Plan: d/c back to [facility] pending insurance approval. Hortencia ALCOCER
[2025-01-18] MEDS: Phytonadione (Vit K) 5 MG in 0.9% Normal Saline (50mL Bag) 50 ML 150 MG IV (15:42)
[2025-01-18 16:00] LABS: Cytology, Body Fluid / CSF SEE PATHOLOGY REPORT
[2025-01-18 16:31] LABS: Bedside Glucose 158 mg/dL (74-106)
[2025-01-18 17:46] LABS: Body Fluid Mononuclear WBC # 0.108 10^3/uL; Body Fluid Mononuclear WBC % 75.6 %; Body Fluid Polynuclear WBC # 0.035 10^3/uL; Body Fluid Polynuclear WBC % 24.4 %; Body Fluid Total Cells Counted 0.172 10^3/ul; White Blood Count/Body Fluid 0.143 10^3/uL
[2025-01-18 17:50] LABS: Glucose, Body Fluid 154 mg/dL (Not Establ.); Protein, Body Fluid 0.3 g/dL (Not Establ.)
[2025-01-18] MEDS: Lactobacillis Acidophilus 1 CAP PO (21:08)
[2025-01-18] MEDS: rifAXIMin 550 MG Tablet PO (21:09)
[2025-01-18] MEDS: Ascorbic Acid 500 MG Tablet PO (21:09)
[2025-01-18] MEDS: Sodium Bicarbonate 650 MG Tablet PO (21:09)
[2025-01-18] MEDS: cycloBENZAPRine HCl 10 MG Tablet PO (21:09)
[2025-01-18] MEDS: Insulin Glargine-YFGN 100 UNIT/ML Pen 20 UNIT SC (21:12)
[2025-01-18 21:19] LABS: Auto B Fluid Analyzer BKGD Ct COUNTS W/IN LIMITS (W/IN LIMITS); Color/Body Fluid LT YEL; Source- Body Fluid PERITONEAL FLUID
[2025-01-18 21:20] LABS: Appearance/Body Fluid CLEAR; Red Cell Count/Body Fluid 218 /mm3
[2025-01-18 21:44] LABS: Bedside Glucose 250 mg/dL (74-106)
[2025-01-18 23:30] LABS: Lymphocytes 24 %; Macrophages 46 %; Monocytes 3 %; Neutrophil (Segs) 20 %
[2025-01-18 23:32] LABS: Body Fluid QC Type(s) BF1Q, BF2Q
[2025-01-19 03:45] VITALS: BP 113/71; PULSE 101; RESP 17; TEMP 36.7; O2SAT 99
[2025-01-19 05:02] VITALS: BMI 35.5
[2025-01-19 05:49] LABS: Absolute Lymphocyte Count 1.08 X10^3/uL (0.83-4.51); Absolute Neutrophil Count 5.4 X10^3/uL (2.0-7.7); Basophil# 0.04 X10^3/uL; Basophil% 0.5 % (0-1); Eosinophil# 0.46 X10^3/uL; Eosinophils% 5.8 % (0-5); Hematocrit 22.3 % (40-54); Hemoglobin 7.6 g/dL (13.0-16.5); Lymphocyte # 1.08 X10^3/ul (0.83-4.51); Lymphocyte % 13.6 % (19-41); Mean Corp Hgb Conc 34.1 g/dL (32-36); Mean Corpuscular Hgb 30.3 pg (27.0-32.0); Mean Corpuscular Volume 88.8 fL (80-94); Mean Platelet Vol. 11.1 fl (6.2-12.0); Monocyte# 0.87 X10^3/uL; NRBC Flagged by Analyzer 0 % (0-5); Neutrophil # 5.38 X10^3/uL (2.7-7.7); Neutrophil % 67.7 % (47-70); Platelet Count 107 K/mm3 (150-450); RBC Distribution Width CV 18.6 % (11.6-14.6); Red Blood Count 2.51 M/mm3 (4.6-6.2); White Blood Count 7.9 K/mm3 (4.4-11.0)
[2025-01-19 06:02] LABS: Prothrombin Time (Protime)PT. 22.8 SECONDS (11.7-14.9)
[2025-01-19 06:03] LABS: Partial Thromboplast Time 46.6 Seconds (24.1-36.2)
[2025-01-19] MEDS: Insulin Lispro 100 UNIT/ML INSULN.PEN SC ×4 (06:12→21:49)
[2025-01-19] MEDS: Lactobacillis Acidophilus 1 CAP PO ×3 (06:12→21:48)
[2025-01-19 06:22] LABS: Albumin, Serum 2.2 g/dL (3.5-5.0); Magnesium 1.7 mg/dL (1.5-2.2); Phosphorus 3.5 mg/dL (2.7-4.5)
[2025-01-19 06:23] LABS: ALB/GLOB Ratio 0.9 RATIO (0.9-2.4); AST(SGOT) 52 U/L (<=37); Alanine Aminotransfer ALT/SGPT 34 U/L (<=46); Albumin, Serum 2.2 g/dL (3.5-5.0); Alkaline Phosphatase 225 U/L (40-129); Anion Gap 7 (5-15); BUN 11 mg/dL (4-19); BUN/Creat Ratio 10.4 RATIO (10-20); Calcium,Total 7.9 mg/dL (7.6-11.0); Carbon Dioxide 30.7 mmol/L (21.0-32.0); Chloride 94 mmol/L (98-108); Creatinine, Serum 1.05 mg/dL (0.70-1.20); EST Glomerular Filtration Rate 82 (>60); Estimated Creatinine Clearance 93.35 ml/min (50-250); Globulin 2.6 g/dL (2.2-4.2); Glucose 220 mg/dL (70-99); Protein, Total 4.8 g/dL (5.9-8.4); Sodium Level 132 mmol/L (133-145)
[2025-01-19 06:31] LABS: Bedside Glucose 198 mg/dL (74-106)
--- NOTE | 2025-01-19 09:19 | PN.HOSP_ITS ---
Reason for Visit Reason for Visit: Diagnoses Sepsis, unspecified organism (01/09/25) Elevated white blood cell count, unspecified (01/09/25) Acidosis, unspecified (01/09/25) Umbilical hernia without obstruction or gangrene (01/09/25) Spinal stenosis, lumbar region with neurogenic claudication (01/09/25) Collapsed vertebra, not elsewhere classified, thoracic region, initial encounter for fracture (01/09/25) Acute kidney failure, unspecified (01/09/25) Unspecified abnormal findings in urine (01/09/25) Objective Data Objective Data Vital Signs: Vital Signs Temp Pulse Resp BP Pulse Ox O2 Del Method 98.0 F 101 H 17 113/71 99 Room Air 01/19/25 03:45 01/19/25 03:45 01/19/25 03:45 01/19/25 03:45 01/19/25 03:45 01/19/25 03:45 Oxygen Delivery Method Room Air Weight: 240 lb 8.389 oz Body Mass Index (BMI) 35.5 Intake & Output: Intake and Output for Last 24 Hours 01/17/25 01/18/25 01/19/25 23:59 23:59 23:59 Intake Total 3473.33 / 3473.33 1370.5 / 1370.5 240 / 240 Output Total 1325 / 1325 4100 / 4100 Balance 2148.33 / 2148.33 -2729.5 / -2729.5 240 / 240 Lab / Micro Data 01/19/25 05:12 01/19/25 05:12 Labs: Laboratory Results - last 24 hr 01/18/25 11:30: POC Glucose 142 H 01/18/25 14:32: Fluid Source PERITONEAL FLUID, Fluid Color LT YEL, Fluid Appearance CLEAR, Fluid WBC 0.143, Fluid RBC 218, Fluid Tot Cell Count 0.172, Fld Polynuclear WBCs # 0.035, Fld Polynuclear WBCs % 24.4, Fluid Mononuclear WBCs 0.108, Fld Mononuclear WBCs % 75.6, Fluid Neutrophils 20, Fluid Lymphocytes 24, Fluid Monocytes 3, Fluid Macrophages 46, Fluid Other Cells 7, Fl Pathologist Comment May follow, Fluid Glucose 154, Fluid Total Protein 0.3, Fluid Comment 2 SEE COMMENT 01/18/25 16:11: POC Glucose 158 H 01/18/25 21:08: POC Glucose 250 H 01/19/25 05:12: WBC 7.9, RBC 2.51 L, Hgb 7.6 L, Hct 22.3 L, MCV 88.8, MCH 30.3, MCHC 34.1, RDW Std Deviation 59.0 H, RDW Coeff of Francis 18.6 H, Plt Count 107 L, MPV 11.1, Immature Gran % (Auto) 1.400 H, Neut % (Auto) 67.7, Lymph % (Auto) 13.6 L, [place] % (Auto) 11.0 H, Eos % (Auto) 5.8 H, Baso % (Auto) 0.5, Absolute Neuts (auto) 5.4, Absolute Lymphs (auto) 1.08, Nucleated RBC % 0, PT 22.8 H, INR 2.0, APTT 46.6 H, Sodium 132 L, Potassium 3.0 L, Chloride 94 L, Carbon Dioxide 30.7, Anion Gap 7, BUN 11, Creatinine 1.05, Estim Creat Clear Calc 93.35, Est GFR (MDRD) Non-Af 82, BUN/Creatinine Ratio 10.4, Glucose 220 H, Calcium 7.9, Phosphorus 3.5, Magnesium 1.7, Total Bilirubin 1.70 H, Direct Bilirubin 1.00 H, AST 52 H, ALT 34, Alkaline Phosphatase 225 H, Total Protein 4.8 L, Albumin 2.2 L 01/19/25 05:12: Albumin 2.2 L, Globulin 2.6, Albumin/Globulin Ratio 0.9 01/19/25 06:11: POC Glucose 198 H Micro: Microbiology 01/18/25 19:00 Stool Stool Occult Blood (AUDIE) - Final 01/09/25 13:35 Blood Culture (Wb) - Right Hand Blood Culture - Final No growth in 5 days. 01/09/25 13:30 Blood Culture (Wb) - Finger Blood Culture - Final No growth in 5 days. 01/09/25 13:28 Urine Catheter - Catheter Urine Culture - Final Yeast, not Mary albicans Radiography Diagnostic Testing: Radiology Impression Abdomen Ultrasound 01/18/25 13:02 IMPRESSION: Cirrhosis. Splenomegaly. Nonvisualization of the gallbladder which may be contracted, surgically absent, or obscured by bowel gas. Correlate with surgical history. Reading Location: [id number] Paracentesis Ultrasound 01/18/25 13:08 IMPRESSION: Right lower quadrant marker was applied for paracentesis with drain the fluid volume of 2650 cc. Reading Location: [facility] Physical Exam Narrative Seen and examined Discussed with the pain management. Plan for epidural analgesia today for pain control. HARRIS cirrhosis Patient admitted for complaint of sepsis due to UTI but now UTI resolved and patient complained of back pain and imaging showed compression fracture. His pain is better. Had paracentesis yesterday, 2650 mL Physical exam General: Alert, Oriented x3, Cooperative HEENT: Atraumatic, PERRLA, EOMI, Normocephalic. Oral: No Gingival or Mucosal Lesions/ Ulcerations Neck: Supple, No JVD, Negative Carotid Bruits Chest wall/Lungs: Air entry diminished in bilateral lung bases. No crepitation/rhonchi Cardiovascular: Regular rate and rhythm, Normal S1,S2, No M/G/R Abdomen: Bowel Sounds Present, Soft, Non Tender, mildly distended abdomen, status post paracentesis : No dysuria. No renal angle tenderness. No suprapubic tenderness. Extremities: Bilateral 2 plus pitting LE edema, Capillary Refill Less than 3 Seconds Skin: Mild bruise over abdomen Musculoskeletal: No Tenderness to Palpation of Joints or Extremities Spine: Tenderness present over lumbar spine. Neurological: Cranial nerves II-XII grossly intact, DTR 2+/4. No acute focal neurological deficit. Psych/Mental Status: Normal Affect, Appropriate. Assessment & Plan Assessment/Plan (1) Sepsis: (2) Abnormal urinalysis: PLAN: Plan #Sepsis due to UTI * Hypotension has resolved. Blood pressure stable. * He does have a history of known left-sided staghorn calculi and stenting and follows with Dr. Rascon * Continue broad-spectrum antibiotics with vancomycin and meropenem * Blood culture showed no growth after 5 days. Urine cultures growing yeast not Mary albicans\ 01/17: Sepsis resolved. Urine culture shows is not Mary albicans. That might be commensal/colonization. Blood culture negative for 5 days. Patient is on meropenem since admission 01/09 had total 8 days of antibiotics therefore discontinued. Patient also had vancomycin vancomycin in the beginning of the admission #Lactic acidosis: Likely due to sepsis. Resolved with hydration. #ISABEL: Resolved. #Hypokalemia: will replace and trend. 01/18 interval severe hypokalemia, potassium of IV bolus ordered. #Umbilical hernia * Was evaluated by general surgery and the hernia was reduced. Is no longer tender. * #History of compression fractures of T8-T12 * PT OT on board. Fall precautions. * patient still complaining of severe back pain. * MRI of the lumbar spine showed Schmorl's nodules at multiple vertebral endplates of the lower thoracic and lumbar spine with associated anterior wedging of T11 and 12 and review of the thoracic spine MRI images demonstrated Schmorl's nodes at multiple vertebral endplates throughout the thoracic spine with associated anterior wedging of multiple blastic vertebral bodies consistent with Shermans kyphosis and multilevel facet arthropathy of the lumbar spine with lateral recess stenosis and foraminal narrowing. * Thoracic MRI showed abnormal marrow signal at T12 and L1 with no acute compression deformity identified and cannot exclude metastatic involvement of these 2 vertebral bodies and mild spinal stenosis of the level of T10-11 and T11-T12 * Patient PSA is normal. CT of the abdomen pelvis showed no evidence of any malignancy. I did get a CT of the chest today also which showed no evidence of malignancy. His total protein level is not elevated and total albumin level is also normal * He does have a history of smoking but as stated the CT chest showed no evidence of any lung nodules or malignancy. * CT of the chest showed partially visualized severe degenerative changes of T11 and 12 with areas of erosive changes and lytic lesions as well as cirrhosis and ascites. * Pain management consulted. WIll see patient on Friday * Patient will need follow-up on outpatient basis with PCP for further workup for any malignancy. * PT OT on board. Fall precautions. 01/17: We called Dr. Bautista and he said either he or his partner will see the patient and recommend accordingly. Patient has pre-CERT for going to defined SNF. 01/19: Discussed with Dr. Cramichael and he said patient high risk for epidural necessary with INR 2.0. Advised outpatient follow-up and procedure. #Hypomagnesemia: Resolved with replacement. #History of nonalcoholic liver disease with cirrhosis * On rifaximin and lactulose. Aldactone and nadolol held on account of hypotension 01/18: Patient currently on midodrine. Aldactone resumed from tomorrow a.m. ultrasound abdomen ordered for paracentesis and diagnostic labs ordered. BP is low,105/55. 01/19: Patient had 2650 mL fluid drained. Peritoneal fluid shows WBC 143, polymorphs 35, mononuclear 108 therefore SBP ruled out. Fluid total protein 0.3 consistent with portal hypertensive ascites. Patient has hypokalemia 3.0, sodium 132. On spironolactone 25 mg twice daily increased to 50 mg twice daily. Hypoalbuminemia, hypergammaglobulinemia, A/G ratio 0.9. #Acute on chronic anemia * Hemoglobin is 7.9 today; he was transfused with one unit of pRBC during this admission. Baseline is around 8-9 though he has been as low as 7.2 before. * No clear evidence of bleeding. * May be due to his history of liver disease also. * stool for ocult blood negative 01/19: H&H 7.6/22.3%. Platelet count 100 7K. #Chronic thrombocytopenia: Platelet count is about 109K. It has been about 109 K- 130K #History of venous thrombosis: * Not anticoagulated due to history of hematuria. Will monitor. #History of hypotension: On midodrine. Continue midodrine #GERD: On PPI #Type 2 diabetes mellitus: On Lantus. Insulin sliding scale. Accu-Cheks ACHS. #Hyperlipidemia: On statin DVT prophylaxis: SCDs 01/18/25 11:30: POC Glucose 142 H 01/18/25 14:32: Fluid Source PERITONEAL FLUID, Fluid Color LT YEL, Fluid Appearance CLEAR, Fluid WBC 0.143, Fluid RBC 218, Fluid Tot Cell Count 0.172, Fld Polynuclear WBCs # 0.035, Fld Polynuclear WBCs % 24.4, Fluid Mononuclear WBCs 0.108, Fld Mononuclear WBCs % 75.6, Fluid Neutrophils 20, Fluid Lymphocytes 24, Fluid Monocytes 3, Fluid Macrophages 46, Fluid Other Cells 7, Fl Pathologist Comment May follow, Fluid Glucose 154, Fluid Total Protein 0.3, Fluid Comment 2 SEE COMMENT 01/18/25 16:11: POC Glucose 158 H 01/18/25 21:08: POC Glucose 250 H 01/19/25 05:12: WBC 7.9, RBC 2.51 L, Hgb 7.6 L, Hct 22.3 L, MCV 88.8, MCH 30.3, MCHC 34.1, RDW Std Deviation 59.0 H, RDW Coeff of Francis 18.6 H, Plt Count 107 L, MPV 11.1, Immature Gran % (Auto) 1.400 H, Neut % (Auto) 67.7, Lymph % (Auto) 13.6 L, [place] % (Auto) 11.0 H, Eos % (Auto) 5.8 H, Baso % (Auto) 0.5, Absolute Neuts (auto) 5.4, Absolute Lymphs (auto) 1.08, Nucleated RBC % 0, PT 22.8 H, INR 2.0, APTT 46.6 H, Sodium 132 L, Potassium 3.0 L, Chloride 94 L, Carbon Dioxide 30.7, Anion Gap 7, BUN 11, Creatinine 1.05, Estim Creat Clear Calc 93.35, Est GFR (MDRD) Non-Af 82, BUN/Creatinine Ratio 10.4, Glucose 220 H, Calcium 7.9, Phosphorus 3.5, Magnesium 1.7, Total Bilirubin 1.70 H, Direct Bilirubin 1.00 H, AST 52 H, ALT 34, Alkaline Phosphatase 225 H, Total Protein 4.8 L, Albumin 2.2 L 01/19/25 05:12: Albumin 2.2 L, Globulin 2.6, Albumin/Globulin Ratio 0.9 01/19/25 06:11: POC Glucose 198 H Charges/Coding Visit Charges Inpatient E&M: 06926 Subs Hosp L2
[2025-01-19 09:22] VITALS: BP 113/70; PULSE 100; RESP 16; TEMP 36.8; O2SAT 99
[2025-01-19] MEDS: Folic Acid 1 MG Tablet PO (09:29)
[2025-01-19] MEDS: Magnesium Chloride 64 MG Delay Rel.Tablet 128 MG PO (09:29)
[2025-01-19] MEDS: Atorvastatin Calcium 40 MG Tablet PO (09:29)
[2025-01-19] MEDS: Sodium Bicarbonate 650 MG Tablet PO ×2 (09:29→21:48)
[2025-01-19] MEDS: Spironolactone 25 MG Tablet PO (09:29)
[2025-01-19] MEDS: Pantoprazole Sodium 20 MG Tablet PO (09:29)
[2025-01-19] MEDS: Calcium Carb/Vitamin D 1 TABLET Tablet PO (09:29)
[2025-01-19] MEDS: Midodrine HCl 5 MG Tablet 10 MG PO ×3 (09:29→17:21)
[2025-01-19] MEDS: Thiamine Hydrochloride 100 MG Tablet PO (09:30)
[2025-01-19] MEDS: Ascorbic Acid 500 MG Tablet PO ×2 (09:30→21:48)
[2025-01-19] MEDS: rifAXIMin 550 MG Tablet PO ×2 (09:30→21:48)
[2025-01-19] MEDS: Insulin Glargine-YFGN 100 UNIT/ML Pen 20 UNIT SC ×2 (09:33→21:49)
[2025-01-19 12:13] VITALS: BP 123/73; PULSE 103; RESP 18; TEMP 36.8; O2SAT 99
[2025-01-19] MEDS: Morphine 2 MG/ML Syringe 1 MG IV (12:18)
[2025-01-19] MEDS: 0.9% Saline Lock 10 ML Syringe IV (12:19)
[2025-01-19 12:43] LABS: Bedside Glucose 187 mg/dL (74-106)
[2025-01-19 15:04] VITALS: BP 109/61; PULSE 99; RESP 16; TEMP 36.7; O2SAT 98
[2025-01-19] MEDS: oxyCODONE 5 MG Tablet PO ×2 (17:24→22:43)
[2025-01-19 17:40] LABS: Bedside Glucose 268 mg/dL (74-106)
[2025-01-19 21:45] VITALS: BP 113/60; PULSE 67; RESP 16; TEMP 36.6; O2SAT 100
[2025-01-19] MEDS: cycloBENZAPRine HCl 10 MG Tablet PO (21:48)
[2025-01-19] MEDS: Spironolactone 50 MG Tablet PO (21:52)
[2025-01-19 22:09] LABS: Bedside Glucose 225 mg/dL (74-106)
[2025-01-20 02:26] VITALS: BP 117/69; PULSE 101; RESP 16; TEMP 36.8; O2SAT 97
[2025-01-20] MEDS: DiphenhydrAMINE 50 MG/ML Syringe 25 MG IV (02:49)
[2025-01-20] MEDS: 0.9% Saline Lock 10 ML Syringe IV (02:49)
[2025-01-20 03:01] VITALS: BMI 35.4
[2025-01-20 06:16] LABS: Absolute Neutrophil Count 4.3 X10^3/uL (2.0-7.7); Basophil# 0.04 X10^3/uL; Basophil% 0.6 % (0-1); Eosinophil# 0.44 X10^3/uL; Eosinophils% 6.5 % (0-5); Hematocrit 22.9 % (40-54); Hemoglobin 7.7 g/dL (13.0-16.5); Lymphocyte % 16.3 % (19-41); Mean Corp Hgb Conc 33.6 g/dL (32-36); Mean Corpuscular Hgb 29.6 pg (27.0-32.0); Mean Corpuscular Volume 88.1 fL (80-94); Mean Platelet Vol. 10.6 fl (6.2-12.0); Monocyte% 11.9 % (0-10); NRBC Flagged by Analyzer 0 % (0-5); Neutrophil # 4.29 X10^3/uL (2.7-7.7); Neutrophil % 63.5 % (47-70); POSITIVE COUNT YES; Platelet Count 93 K/mm3 (150-450); RBC Distribution Width CV 18.3 % (11.6-14.6); RBC Distribution Width SD 58.5 fl (35.1-43.9); White Blood Count 6.8 K/mm3 (4.4-11.0)
[2025-01-20 06:18] LABS: Differential Indicated SCAN CRITERIA MET
[2025-01-20] MEDS: Insulin Lispro 100 UNIT/ML INSULN.PEN SC ×4 (06:26→21:46)
[2025-01-20] MEDS: Lactobacillis Acidophilus 1 CAP PO ×3 (06:26→21:45)
[2025-01-20 06:33] LABS: ALB/GLOB Ratio 0.7 RATIO (0.9-2.4); AST(SGOT) 45 U/L (<=37); Alanine Aminotransfer ALT/SGPT 32 U/L (<=46); Alkaline Phosphatase 211 U/L (40-129); Anion Gap 7 (5-15); BUN 12 mg/dL (4-19); BUN/Creat Ratio 13.4 RATIO (10-20); Calcium,Total 8.1 mg/dL (7.6-11.0); Carbon Dioxide 30.3 mmol/L (21.0-32.0); Chloride 95 mmol/L (98-108); Creatinine, Serum 0.87 mg/dL (0.70-1.20); EST Glomerular Filtration Rate 100 (>60); Estimated Creatinine Clearance 112.61 ml/min (50-250); Globulin 2.9 g/dL (2.2-4.2); Glucose 195 mg/dL (70-99); Potassium 3.1 mmol/L (3.3-5.1); Protein, Total 4.9 g/dL (5.9-8.4); Sodium Level 133 mmol/L (133-145); Total Bilirubin 1.61 mg/dL (0.00-1.30)
[2025-01-20 06:52] LABS: Bedside Glucose 164 mg/dL (74-106)
[2025-01-20 07:16] LABS: Differential Comment SCANNED; Platelet Estimate MOD DEC (ADEQ)
[2025-01-20 08:38] VITALS: BP 116/80; PULSE 99; RESP 16; TEMP 36.9; O2SAT 94
[2025-01-20] MEDS: Midodrine HCl 5 MG Tablet 10 MG PO ×3 (08:42→16:58)
[2025-01-20] MEDS: Spironolactone 50 MG Tablet PO ×2 (08:42→21:45)
[2025-01-20] MEDS: Folic Acid 1 MG Tablet PO (08:42)
[2025-01-20] MEDS: Atorvastatin Calcium 40 MG Tablet PO (08:42)
[2025-01-20] MEDS: Magnesium Chloride 64 MG Delay Rel.Tablet 128 MG PO (08:43)
[2025-01-20] MEDS: Thiamine Hydrochloride 100 MG Tablet PO (08:43)
[2025-01-20] MEDS: Sodium Bicarbonate 650 MG Tablet PO ×2 (08:43→21:47)
[2025-01-20] MEDS: Pantoprazole Sodium 20 MG Tablet PO (08:43)
[2025-01-20] MEDS: Ascorbic Acid 500 MG Tablet PO ×2 (08:43→21:47)
[2025-01-20] MEDS: Calcium Carb/Vitamin D 1 TABLET Tablet PO (08:43)
[2025-01-20] MEDS: rifAXIMin 550 MG Tablet PO ×2 (08:44→21:47)
[2025-01-20] MEDS: Acetaminophen 500 MG Tablet 1000 MG PO (08:53)
[2025-01-20] MEDS: oxyCODONE 5 MG Tablet PO (08:54)
[2025-01-20 11:15] LABS: Pathologist Comment/Body Fluid Reviewed
[2025-01-20 12:13] LABS: Bedside Glucose 167 mg/dL (74-106)
[2025-01-20] MEDS: Furosemide 20 MG Tablet PO (12:29)
[2025-01-20] MEDS: hydrOXYzine 10 MG Tablet PO (12:30)
[2025-01-20] MEDS: Ferrous Sulfate 325 MG Tablet PO (12:31)
[2025-01-20] MEDS: Insulin Glargine-YFGN 100 UNIT/ML Pen 20 UNIT SC ×2 (12:31→21:46)
[2025-01-20 12:35] VITALS: BP 119/82; PULSE 94; RESP 18; TEMP 36.8; O2SAT 96
[2025-01-20] MEDS: Menthol/Lanolin/Calamine/Znox 113 GM Tube 1 APPLIC TOPICAL ×2 (14:27→21:45)
[2025-01-20] MEDS: Lactulose 20 GM/30 ML UDC 10 GM PO (14:29)
--- NOTE | 2025-01-20 14:36 | PN.HOSP_ITS ---
Reason for Visit Reason for Visit: Diagnoses Sepsis, unspecified organism (01/09/25) Elevated white blood cell count, unspecified (01/09/25) Acidosis, unspecified (01/09/25) Umbilical hernia without obstruction or gangrene (01/09/25) Spinal stenosis, lumbar region with neurogenic claudication (01/09/25) Collapsed vertebra, not elsewhere classified, thoracic region, initial encounter for fracture (01/09/25) Acute kidney failure, unspecified (01/09/25) Unspecified abnormal findings in urine (01/09/25) Objective Data Objective Data Vital Signs: Vital Signs Temp Pulse Resp BP Pulse Ox O2 Del Method 98.3 F 94 18 119/82 H 96 Room Air 01/20/25 12:35 01/20/25 12:35 01/20/25 12:35 01/20/25 12:35 01/20/25 12:35 01/20/25 12:35 Oxygen Delivery Method Room Air Weight: 240 lb 4.862 oz Body Mass Index (BMI) 35.4 Intake & Output: Intake and Output for Last 24 Hours 01/18/25 01/19/25 01/20/25 23:59 23:59 23:59 Intake Total 1370.5 / 1370.5 1320 / 1320 240 / 240 Output Total 4100 / 4100 675 / 975 1005 / 1005 Balance -2729.5 / -2729.5 645 / 345 -765 / -765 Lab / Micro Data 01/20/25 04:59 01/20/25 04:59 Labs: Laboratory Results - last 24 hr 01/18/25 14:32: Fl Pathologist Comment Reviewed 01/19/25 17:19: POC Glucose 268 H 01/19/25 21:47: POC Glucose 225 H 01/20/25 04:59: WBC 6.8, RBC 2.60 L, Hgb 7.7 L, Hct 22.9 L, MCV 88.1, MCH 29.6, MCHC 33.6, RDW Std Deviation 58.5 H, RDW Coeff of Francis 18.3 H, Plt Count 93 L, MPV 10.6, Immature Gran % (Auto) 1.200 H, Neut % (Auto) 63.5, Lymph % (Auto) 16.3 L, [place] % (Auto) 11.9 H, Eos % (Auto) 6.5 H, Baso % (Auto) 0.6, Absolute Neuts (auto) 4.3, Absolute Lymphs (auto) 1.10, Nucleated RBC % 0, Differential Comment SCANNED, Platelet Estimate MOD DEC, Sodium 133, Potassium 3.1 L, Chloride 95 L, Carbon Dioxide 30.3, Anion Gap 7, BUN 12, Creatinine 0.87, Estim Creat Clear Calc 112.61, Est GFR (MDRD) Non-Af 100, BUN/Creatinine Ratio 13.4, Glucose 195 H, Calcium 8.1, Total Bilirubin 1.61 H, AST 45 H, ALT 32, Alkaline Phosphatase 211 H, Total Protein 4.9 L, Albumin 2.0 L, Globulin 2.9, Albumin/Globulin Ratio 0.7 L 01/20/25 06:25: POC Glucose 164 H 01/20/25 11:49: POC Glucose 167 H Micro: Microbiology 01/18/25 14:32 Fluid - Ascites Gram Stain - Final 01/18/25 14:32 Fluid - Ascites Body Fluid Culture - Preliminary No growth-Final to follow 01/18/25 19:00 Stool Stool Occult Blood (AUDIE) - Final 01/09/25 13:35 Blood Culture (Wb) - Right Hand Blood Culture - Final No growth in 5 days. 01/09/25 13:30 Blood Culture (Wb) - Finger Blood Culture - Final No growth in 5 days. 01/09/25 13:28 Urine Catheter - Catheter Urine Culture - Final Yeast, not Mary albicans Physical Exam Narrative Seen and examined Patient complain of itching in the leg and leg swelling. HARRIS cirrhosis. Epidural injection was canceled due to coagulopathy INR 2.0. Advised follow-up outpatient Patient admitted for complaint of sepsis due to UTI but now UTI resolved and patient complained of back pain and imaging showed compression fracture. His pain is better. Had paracentesis yesterday, 2650 mL Physical exam General: Alert, Oriented x3, Cooperative HEENT: Atraumatic, PERRLA, EOMI, Normocephalic. Oral: No Gingival or Mucosal Lesions/ Ulcerations Neck: Supple, No JVD, Negative Carotid Bruits Chest wall/Lungs: Air entry diminished in bilateral lung bases. No crepitation/rhonchi Cardiovascular: Regular rate and rhythm, Normal S1,S2, No M/G/R Abdomen: Bowel Sounds Present, Soft, Non Tender, mildly distended abdomen, status post paracentesis : No dysuria. No renal angle tenderness. No suprapubic tenderness. Extremities: Bilateral 2 plus pitting LE edema, Capillary Refill Less than 3 Seconds Skin: Mild bruise over abdomen Musculoskeletal: No Tenderness to Palpation of Joints or Extremities Spine: Tenderness present over lumbar spine. Neurological: Cranial nerves II-XII grossly intact, DTR 2+/4. No acute focal neurological deficit. Psych/Mental Status: Normal Affect, Appropriate. Assessment & Plan Assessment/Plan (1) Sepsis: (2) Abnormal urinalysis: PLAN: Plan #Sepsis due to UTI * Hypotension has resolved. Blood pressure stable. * He does have a history of known left-sided staghorn calculi and stenting and follows with Dr. Rascon * Continue broad-spectrum antibiotics with vancomycin and meropenem * Blood culture showed no growth after 5 days. Urine cultures growing yeast not Mary albicans\ 01/17: Sepsis resolved. Urine culture shows is not Mary albicans. That might be commensal/colonization. Blood culture negative for 5 days. Patient is on meropenem since admission 01/09 had total 8 days of antibiotics therefore discontinued. Patient also had vancomycin vancomycin in the beginning of the admission #Lactic acidosis: Likely due to sepsis. Resolved with hydration. #ISABEL: Resolved. #Hypokalemia: will replace and trend. 01/18 interval severe hypokalemia, potassium of IV bolus ordered. 01/19: Hypokalemia: Potassium, K3.1. On spironolactone 50 mg p.o. twice daily. #Umbilical hernia * Was evaluated by general surgery and the hernia was reduced. Is no longer tender. * #History of compression fractures of T8-T12 * PT OT on board. Fall precautions. * patient still complaining of severe back pain. * MRI of the lumbar spine showed Schmorl's nodules at multiple vertebral endplates of the lower thoracic and lumbar spine with associated anterior wedging of T11 and 12 and review of the thoracic spine MRI images demonstrated Schmorl's nodes at multiple vertebral endplates throughout the thoracic spine with associated anterior wedging of multiple blastic vertebral bodies consistent with Shermans kyphosis and multilevel facet arthropathy of the lumbar spine with lateral recess stenosis and foraminal narrowing. * Thoracic MRI showed abnormal marrow signal at T12 and L1 with no acute compression deformity identified and cannot exclude metastatic involvement of these 2 vertebral bodies and mild spinal stenosis of the level of T10-11 and T11-T12 * Patient PSA is normal. CT of the abdomen pelvis showed no evidence of any malignancy. I did get a CT of the chest today also which showed no evidence of malignancy. His total protein level is not elevated and total albumin level is also normal * He does have a history of smoking but as stated the CT chest showed no evidence of any lung nodules or malignancy. * CT of the chest showed partially visualized severe degenerative changes of T11 and 12 with areas of erosive changes and lytic lesions as well as cirrhosis and ascites. * Pain management consulted. WIll see patient on Friday * Patient will need follow-up on outpatient basis with PCP for further workup for any malignancy. * PT OT on board. Fall precautions. 01/17: We called Dr. Bautista and he said either he or his partner will see the patient and recommend accordingly. Patient has pre-CERT for going to defined SNF. 01/19: Discussed with Dr. Carmichael and he said patient high risk for epidural necessary with INR 2.0. Advised outpatient follow-up and procedure. #Hypomagnesemia: Resolved with replacement. #History of nonalcoholic liver disease with cirrhosis * On rifaximin and lactulose. Aldactone and nadolol held on account of hypotension 01/18: Patient currently on midodrine. Aldactone resumed from tomorrow a.m. ultrasound abdomen ordered for paracentesis and diagnostic labs ordered. BP is low,105/55. 01/19: Patient had 2650 mL fluid drained. Peritoneal fluid shows WBC 143, polymorphs 35, mononuclear 108 therefore SBP ruled out. Fluid total protein 0.3 consistent with portal hypertensive ascites. Patient has hypokalemia 3.0, sodium 132. On spironolactone 25 mg twice daily increased to 50 mg twice daily. Hypoalbuminemia, hypergammaglobulinemia, A/G ratio 0.9. 01/20: Furosemide 20 mg daily and spironolactone 50 mg twice daily. Patient has itching in lower extremity therefore Calmoseptine ointment and Atarax ordered. #Acute on chronic anemia * Hemoglobin is 7.9 today; he was transfused with one unit of pRBC during this admission. Baseline is around 8-9 though he has been as low as 7.2 before. * No clear evidence of bleeding. * May be due to his history of liver disease also. * stool for ocult blood negative 01/19: H&H 7.6/22.3%. Platelet count 107K. 01/20: H&H 7.7, platelet count 93K. #Chronic thrombocytopenia: Platelet count is about 109K. It has been about 109 K- 130K #History of venous thrombosis: * Not anticoagulated due to history of hematuria. Will monitor. #History of hypotension: On midodrine. Continue midodrine #GERD: On PPI #Type 2 diabetes mellitus: On Lantus. Insulin sliding scale. Accu-Cheks ACHS. #Hyperlipidemia: On statin DVT prophylaxis: SCDs Microbiology Past 72 Hours 01/18/25 14:32 Fluid - Ascites Gram Stain - Final 01/18/25 14:32 Fluid - Ascites Body Fluid Culture - Preliminary No growth-Final to follow 01/18/25 19:00 Stool Stool Occult Blood (AUDIE) - Final Laboratory Results 01/18/25 14:32: Fl Pathologist Comment Reviewed 01/19/25 17:19: POC Glucose 268 H 01/19/25 21:47: POC Glucose 225 H 01/20/25 04:59: WBC 6.8, RBC 2.60 L, Hgb 7.7 L, Hct 22.9 L, MCV 88.1, MCH 29.6, MCHC 33.6, RDW Std Deviation 58.5 H, RDW Coeff of Francis 18.3 H, Plt Count 93 L, MPV 10.6, Immature Gran % (Auto) 1.200 H, Neut % (Auto) 63.5, Lymph % (Auto) 16.3 L, [place] % (Auto) 11.9 H, Eos % (Auto) 6.5 H, Baso % (Auto) 0.6, Absolute Neuts (auto) 4.3, Absolute Lymphs (auto) 1.10, Nucleated RBC % 0, Differential Comment SCANNED, Platelet Estimate MOD DEC, Sodium 133, Potassium 3.1 L, C hloride 95 L, Carbon Dioxide 30.3, Anion Gap 7, BUN 12, Creatinine 0.87, Estim Creat Clear Calc 112.61, Est GFR (MDRD) Non-Af 100, BUN/Creatinine Ratio 13.4, G lucose 195 H, Calcium 8.1, Total Bilirubin 1.61 H, AST 45 H, ALT 32, Alkaline Phosphatase 211 H, Total Protein 4.9 L, Albumin 2.0 L, Globulin 2.9, A lbumin/Globulin Ratio 0.7 L 01/20/25 06:25: POC Glucose 164 H 01/20/25 11:49: POC Glucose 167 H Charges/Coding Visit Charges Inpatient E&M: 86573 Subs Hosp L2
[2025-01-20 16:55] VITALS: BP 111/70; PULSE 97; RESP 18; TEMP 36.6; O2SAT 93
[2025-01-20 21:35] VITALS: BP 112/73; PULSE 90; RESP 16; TEMP 36.8; O2SAT 95
[2025-01-20] MEDS: cycloBENZAPRine HCl 10 MG Tablet PO (21:46)
[2025-01-20 22:51] LABS: Bedside Glucose 188 mg/dL (74-106)
[2025-01-20 23:44] LABS: Bedside Glucose 206 mg/dL (74-106)
[2025-01-21 04:00] VITALS: BP 114/66; PULSE 93; RESP 16; TEMP 37; O2SAT 100
[2025-01-21 05:13] VITALS: BMI 35.8
[2025-01-21] MEDS: Insulin Lispro 100 UNIT/ML INSULN.PEN SC ×2 (06:43→11:16)
[2025-01-21] MEDS: Lactobacillis Acidophilus 1 CAP PO ×2 (06:43→13:02)
[2025-01-21 07:03] LABS: Bedside Glucose 199 mg/dL (74-106)
[2025-01-21 07:28] LABS: ALB/GLOB Ratio 0.8 RATIO (0.9-2.4); AST(SGOT) 48 U/L (<=37); Alanine Aminotransfer ALT/SGPT 28 U/L (<=46); Albumin, Serum 2.1 g/dL (3.5-5.0); Alkaline Phosphatase 204 U/L (40-129); Anion Gap 7 (5-15); BUN 13 mg/dL (4-19); BUN/Creat Ratio 15.6 RATIO (10-20); Calcium,Total 8.1 mg/dL (7.6-11.0); Carbon Dioxide 29.7 mmol/L (21.0-32.0); Chloride 96 mmol/L (98-108); Creatinine, Serum 0.86 mg/dL (0.70-1.20); EST Glomerular Filtration Rate 100 (>60); Globulin 2.6 g/dL (2.2-4.2); Glucose 199 mg/dL (70-99); Potassium 3.1 mmol/L (3.3-5.1); Protein, Total 4.7 g/dL (5.9-8.4); Sodium Level 133 mmol/L (133-145); Total Bilirubin 1.52 mg/dL (0.00-1.30)
[2025-01-21] MEDS: oxyCODONE 5 MG Tablet PO (09:07)
[2025-01-21] MEDS: Lactulose 20 GM/30 ML UDC 10 GM PO (09:08)
[2025-01-21] MEDS: Acetaminophen 500 MG Tablet 1000 MG PO (09:08)
[2025-01-21] MEDS: Folic Acid 1 MG Tablet PO (09:10)
[2025-01-21] MEDS: Midodrine HCl 5 MG Tablet 10 MG PO ×2 (09:10→11:15)
[2025-01-21] MEDS: Furosemide 20 MG Tablet PO (09:11)
[2025-01-21] MEDS: Spironolactone 50 MG Tablet PO (09:11)
[2025-01-21] MEDS: Magnesium Chloride 64 MG Delay Rel.Tablet 128 MG PO (09:12)
[2025-01-21] MEDS: Atorvastatin Calcium 40 MG Tablet PO (09:12)
[2025-01-21] MEDS: Ascorbic Acid 500 MG Tablet PO (09:13)
[2025-01-21] MEDS: Sodium Bicarbonate 650 MG Tablet PO (09:13)
[2025-01-21] MEDS: Pantoprazole Sodium 20 MG Tablet PO (09:13)
[2025-01-21] MEDS: Calcium Carb/Vitamin D 1 TABLET Tablet PO (09:13)
[2025-01-21] MEDS: rifAXIMin 550 MG Tablet PO (09:13)
[2025-01-21] MEDS: Thiamine Hydrochloride 100 MG Tablet PO (09:13)
[2025-01-21 09:18] VITALS: BP 120/75; PULSE 96; RESP 16; TEMP 36.4; O2SAT 94
--- NOTE | 2025-01-21 10:04 | TREXTCAR_ITS ---
Diet Diet Order/Speech Therapy: INPATIENT Hospital Diet / Speech Therapy Order(s) 01/18/25 15:29 Diet: Cardiac - Heart Healthy Dietary Modifications:: Consistent Carbohydrate Type of Dietary Supplement:: Glucerna Shake Diet Comments: 120ml vanilla glucerna shake with all meals DC O2, CPAP, BIPAP needs Home O2 Discharge instructions: No Wound(s) RLQ: Wound Type: Puncture BLE: Wound Type: scratches Problem/Diagnosis (1) Sepsis: Status: Acute Code(s): A41.9 - Sepsis, unspecified organism (2) Abnormal urinalysis: Status: Acute Code(s): R82.90 - Unspecified abnormal findings in urine Plan #Sepsis due to UTI * Hypotension has resolved. Blood pressure stable. * He does have a history of known left-sided staghorn calculi and stenting and follows with Dr. Rascon * Continue broad-spectrum antibiotics with vancomycin and meropenem * Blood culture showed no growth after 5 days. Urine cultures growing yeast not Mary albicans\ 01/17: Sepsis resolved. Urine culture shows is not Mary albicans. That might be commensal/colonization. Blood culture negative for 5 days. Patient is on meropenem since admission 01/09 had total 8 days of antibiotics therefore discontinued. Patient also had vancomycin vancomycin in the beginning of the admission #Lactic acidosis: Likely due to sepsis. Resolved with hydration. #ISABEL: Resolved. #Hypokalemia: will replace and trend. 01/18 interval severe hypokalemia, potassium of IV bolus ordered. 01/19: Hypokalemia: Potassium, K3.1. On spironolactone 50 mg p.o. twice daily. #Umbilical hernia * Was evaluated by general surgery and the hernia was reduced. Is no longer tender. * #History of compression fractures of T8-T12 * PT OT on board. Fall precautions. * patient still complaining of severe back pain. * MRI of the lumbar spine showed Schmorl's nodules at multiple vertebral endplates of the lower thoracic and lumbar spine with associated anterior wedging of T11 and 12 and review of the thoracic spine MRI images demonstrated Schmorl's nodes at multiple vertebral endplates throughout the thoracic spine with associated anterior wedging of multiple blastic vertebral bodies consistent with Shermans kyphosis and multilevel facet arthropathy of the lumbar spine with lateral recess stenosis and foraminal narrowing. * Thoracic MRI showed abnormal marrow signal at T12 and L1 with no acute compression deformity identified and cannot exclude metastatic involvement of these 2 vertebral bodies and mild spinal stenosis of the level of T10-11 and T11-T12 * Patient PSA is normal. CT of the abdomen pelvis showed no evidence of any malignancy. I did get a CT of the chest today also which showed no evidence of malignancy. His total protein level is not elevated and total albumin level is also normal * He does have a history of smoking but as stated the CT chest showed no evidence of any lung nodules or malignancy. * CT of the chest showed partially visualized severe degenerative changes of T11 and 12 with areas of erosive changes and lytic lesions as well as cirrhosis and ascites. * Pain management consulted. WIll see patient on Friday * Patient will need follow-up on outpatient basis with PCP for further workup for any malignancy. * PT OT on board. Fall precautions. 01/17: We called Dr. Bautista and he said either he or his partner will see the patient and recommend accordingly. Patient has pre-CERT for going to defined SNF. 01/19: Discussed with Dr. Carmichael and he said patient high risk for epidural necessary with INR 2.0. Advised outpatient follow-up and procedure. #Hypomagnesemia: Resolved with replacement. #History of nonalcoholic liver disease with cirrhosis * On rifaximin and lactulose. Aldactone and nadolol held on account of hypotension 01/18: Patient currently on midodrine. Aldactone resumed from tomorrow a.m. ultrasound abdomen ordered for paracentesis and diagnostic labs ordered. BP is low,105/55. 01/19: Patient had 2650 mL fluid drained. Peritoneal fluid shows WBC 143, polymorphs 35, mononuclear 108 therefore SBP ruled out. Fluid total protein 0.3 consistent with portal hypertensive ascites. Patient has hypokalemia 3.0, sod ium 132. On spironolactone 25 mg twice daily increased to 50 mg twice daily. Hypoalbuminemia, hypergammaglobulinemia, A/G ratio 0.9. 01/20: Furosemide 20 mg daily and spironolactone 50 mg twice daily. Patient has itching in lower extremity therefore Calmoseptine ointment and Atarax ordered. #Acute on chronic anemia * Hemoglobin is 7.9 today; he was transfused with one unit of pRBC during this admission. Baseline is around 8-9 though he has been as low as 7.2 before. * No clear evidence of bleeding. * May be due to his history of liver disease also. * stool for ocult blood negative 01/19: H&H 7.6/22.3%. Platelet count 107K. 01/20: H&H 7.7, platelet count 93K. #Chronic thrombocytopenia: Platelet count is about 109K. It has been about 109 K- 130K #History of venous thrombosis: * Not anticoagulated due to history of hematuria. Will monitor. #History of hypotension: On midodrine. Continue midodrine #GERD: On PPI #Type 2 diabetes mellitus: On Lantus. Insulin sliding scale. Accu-Cheks ACHS. #Hyperlipidemia: On statin DVT prophylaxis: SCDs Microbiology Past 72 Hours 01/18/25 14:32 Fluid - Ascites Gram Stain - Final 01/18/25 14:32 Fluid - Ascites Body Fluid Culture - Preliminary No growth-Final to follow 01/18/25 19:00 Stool Stool Occult Blood (AUDIE) - Final Laboratory Results 01/18/25 14:32: Fl Pathologist Comment Reviewed 01/19/25 17:19: POC Glucose 268 H 01/19/25 21:47: POC Glucose 225 H 01/20/25 04:59: WBC 6.8, RBC 2.60 L, Hgb 7.7 L, Hct 22.9 L, MCV 88.1, MCH 29.6, MCHC 33.6, RDW Std Deviation 58.5 H, RDW Coeff of Francis 18.3 H, Plt Count 93 L, MPV 10.6, Immature Gran % (Auto) 1.200 H, Neut % (Auto) 63.5, Lymph % (Auto) 16.3 L, Harvey % (Auto) 11.9 H, Eos % (Auto) 6.5 H, Baso % (Auto) 0.6, Absolute Neuts (auto) 4.3, Absolute Lymphs (auto) 1.10, Nucleated RBC % 0, Differential Comment SCANNED, Platelet Estimate MOD DEC, Sodium 133, Potassium 3.1 L, Chloride 95 L, Carbon Dioxide 30.3, Anion Gap 7, BUN 12, Creatinine 0.87, Estim Creat Clear Calc 112.61, Est GFR (MDRD) Non-Af 100, BUN/Creatinine Ratio 13.4, Glucose 195 H, Calcium 8.1, Total Bilirubin 1.61 H, AST 45 H, ALT 32, Alkaline Phosphatase 211 H, Total Protein 4.9 L, Albumin 2.0 L, Globulin 2.9, Albumin/Globulin Ratio 0.7 L 01/20/25 06:25: POC Glucose 164 H 01/20/25 11:49: POC Glucose 167 H Allergies/Procedures Done in Hospital Allergies No Known Allergies Allergy (Verified 01/02/25 03:00) Type of Care/Length of Stay Estimated LOS: Convalescent Care Less Than 30 days Type of Care Needed: Skilled Rehab Potential: Good Prognosis: Good Additional Orders/Day of Discharge Day of Discharge: 01/21/25 Dietary and Speech Recommendations Dietitian Recommendations/Changes: Adjust to cardiac, consistent carbohydrate diet. Continue 120 ml vanilla glucerna shake TID with meal. Will monitor weight trends. Discharge Plan Admission Admit Date/Time: 01/09/25 14:16 Attending Provider: Anurag Irene Primary Care Provider: Josy Elias Consulting Providers: Yaritza Leo; Jefferson Malave; Aleyda Bautista; Cielo Tovar Instructions Additional Instructions / Restrictions: Follow-up in [facility] hepatology/GI. Discharge Orders/Prescriptions Prescriptions: New spironolactone 25 mg Tablet 25 mg PO DAILY 30 Days Qty: 30 2RF Rx Instructions: total 125 mg daily Hold for serum potassium more than 5.0 spironolactone 100 mg tablet 100 mg PO DAILY 30 Days Qty: 30 2RF Rx Instructions: Hold for serum potassium more than 5.0. Total 125 mg daily. Continued Xifaxan 550 mg Tablet 550 mg PO BID Qty: 60 0RF cyclobenzaprine 10 mg tablet 10 mg PO QHS ferrous sulfate [FeroSul] 325 mg (65 mg iron) tablet 325 mg PO QODAY insulin lispro [Humalog KwikPen Insulin] 100 unit/mL Insulin Pen See Protocol subcut ACHS Qty: 0 0RF Protocol: 4. Sliding Scale Insulin High-Med Dosing Condition: 150-199 mg/dl = 2 units Condition: 200-259 mg/dl = 4 units Condition: 260-324 mg/dl = 6 units Condition: 325-374 mg/dl = 8 units Condition: 375-409 mg/dl = 10 units Condition: 410-449 mg/dl = 11 units Condition: Greater than 449 call physician Protocol Text: Suggested for: - Patients on Total Daily Insulin Dose of 56-80 units - Patient who are known to be insulin resistant or septic HIGH MEDIUM DOSING ALGORITHM insulin lispro [Humalog KwikPen Insulin] 100 unit/mL Insulin Pen 10 unit subcut TIDAC Qty: 0 0RF insulin glargine-yfgn 100 unit/mL (3 mL) Insulin Pen 20 unit subcut QHS Qty: 0 0RF folic acid 1 mg tablet 1 mg PO DAILY calcium carbonate-vitamin D3 [Oyster Shell Calcium-Vit D3] 500 mg-5 mcg (200 unit) tablet 1 tab PO DAILY acetaminophen 500 mg Tablet 1,000 mg PO Q8 PRN (Reason: fever or pain) atorvastatin 40 mg tablet 40 mg PO DAILY furosemide 20 mg tablet 40 mg PO DAILY magnesium oxide 400 mg (241.3 mg magnesium) tablet 400 mg PO DAILY sodium bicarbonate 650 mg tablet 650 mg PO BID metformin 500 mg tablet extended release 24 hr 500 mg PO QPM thiamine HCl (vitamin B1) 100 mg tablet 100 mg PO DAILY pantoprazole 20 mg tablet,delayed release (DR/EC) 20 mg PO DAILY zinc sulfate 50 mg zinc (220 mg) tablet 50 mg PO DAILY midodrine 10 mg tablet 10 mg PO TID 30 Days Qty: 90 0RF Rx Instructions: do not give last dose of day after 6PM or within 4 hrs of bedtime ascorbic acid (vitamin C) 500 mg tablet 500 mg PO BID Qty: 60 2RF lactulose [Constulose] 10 gram/15 mL solution 15 ml PO TID PRN (Reason: constipation) Patient Comments: HASNT HAD TO TAKE Rx Instructions: Goal to have 2 soft bowel movements per day L.acidoph,saliva-B.bif-S.therm 175 mg Capsule 1 cap PO TID Qty: 120 0RF Changed insulin glargine-yfgn 100 unit/mL (3 mL) Insulin Pen 25 unit subcut DAILY Qty: 15 3RF Discontinued nadolol 20 mg tablet 20 mg PO DAILY spironolactone 50 mg tablet 100 mg PO DAILY potassium, sodium phosphates 280-160-250 mg Powder In Packet 1 packet PO BID Qty: 100 0RF Referrals / Follow Up: Josy Elias NP-C [Primary Care Provider] - Within 2 Weeks Disposition Disposition (needs filled in before D/C Order can be placed): [facility]
--- NOTE | 2025-01-21 11:12 | DS.PCM_ITS ---
Providers Date of Admission: 01/09/25 Date of Discharge: 01/21/25 Primary Care Physician: YG Pena Consultations 01/09/25 15:46 Consult: Meat Inspector / Pulmonary Medicine Routine Consulting Provider: Intensivists/Pulmonary Med Reason for Consult: sepsis EMERGENT Consult: No MD Notified: Yes Date Notified: 01/09/25 Time Notified: 14:21 Method of Notification: Text 01/11/25 13:23 Consult: General Surgery Routine Consulting Provider: Jefferson Malave Reason for Consult: Tender umbilical hernia possibly incarcerated EMERGENT Consult: No MD Notified: Yes Date Notified: 01/11/25 Time Notified: 13:23 Method of Notification: Text 01/14/25 13:24 Consult: Pain Management Routine Consulting Provider: Aleyda Bautista Reason for Consult: severe back pain EMERGENT Consult: No MD Notified: Yes Date Notified: 01/14/25 Time Notified: 16:31 Method of Notification: Answering Service Reason For Visit: SEPSIS Diagnosis Discharge Diagnosis (1) Sepsis: Status: Acute Code(s): A41.9 - Sepsis, unspecified organism (2) Abnormal urinalysis: Status: Acute Code(s): R82.90 - Unspecified abnormal findings in urine Plan 53 gentleman was admitted with abdominal pain and back pain that started 5 days ago no fall no injury. No fever mild nausea but no vomiting. He was admitted with the diagnosis of sepsis due to UTI. #Sepsis due to UTI * Hypotension has resolved. Blood pressure stable. * He does have a history of known left-sided staghorn calculi and stenting and follows with Dr. Rascon * Continue broad-spectrum antibiotics with vancomycin and meropenem * Blood culture showed no growth after 5 days. Urine cultures growing yeast not Mary albicans\ 01/17: Sepsis resolved. Urine culture shows is not Mary albicans. That might be commensal/colonization. Blood culture negative for 5 days. Patient is on meropenem since admission 01/09 had total 8 days of antibiotics therefore discontinued. Patient also had vancomycin vancomycin in the beginning of the admission #Lactic acidosis: Likely due to sepsis. Resolved with hydration. #ISABEL: Resolved. #Hypokalemia: will replace and trend. 01/18 interval severe hypokalemia, potassium of IV bolus ordered. 01/19: Hypokalemia: Potassium, K3.1. On spironolactone 50 mg p.o. twice daily. #Umbilical hernia * Was evaluated by general surgery and the hernia was reduced. Is no longer tender. * #History of compression fractures of T8-T12 * PT OT on board. Fall precautions. * patient still complaining of severe back pain. * MRI of the lumbar spine showed Schmorl's nodules at multiple vertebral endplates of the lower thoracic and lumbar spine with associated anterior wedging of T11 and 12 and review of the thoracic spine MRI images demonstrated Schmorl's nodes at multiple vertebral endplates throughout the thoracic spine with associated anterior wedging of multiple blastic vertebral bodies consistent with Shermans kyphosis and multilevel facet arthropathy of the lumbar spine with lateral recess stenosis and foraminal narrowing. * Thoracic MRI showed abnormal marrow signal at T12 and L1 with no acute compression deformity identified and cannot exclude metastatic involvement of these 2 vertebral bodies and mild spinal stenosis of the level of T10-11 and T11-T12 * Patient PSA is normal. CT of the abdomen pelvis showed no evidence of any malignancy. I did get a CT of the chest today also which showed no evidence of malignancy. His total protein level is not elevated and total albumin level is also normal * He does have a history of smoking but as stated the CT chest showed no evidence of any lung nodules or malignancy. * CT of the chest showed partially visualized severe degenerative changes of T11 and 12 with areas of erosive changes and lytic lesions as well as cirrhosis and ascites. * Pain management consulted. WIll see patient on Friday * Patient will need follow-up on outpatient basis with PCP for further workup for any malignancy. * PT OT on board. Fall precautions. 01/17: We called Dr. Bautista and he said either he or his partner will see the patient and recommend accordingly. Patient has pre-CERT for going to defined SNF. 01/19: Discussed with Dr. Carmichael and he said patient high risk for epidural necessary with INR 2.0. Advised outpatient follow-up and procedure. 01/21 advised to follow with Dr. Carmichael as an outpatient #Hypomagnesemia: Resolved with replacement. #History of nonalcoholic liver disease with cirrhosis * On rifaximin and lactulose. Aldactone and nadolol held on account of hypotension 01/18: Patient currently on midodrine. Aldactone resumed from tomorrow a.m. ultrasound abdomen ordered for paracentesis and diagnostic labs ordered. BP is low,105/55. 01/19: Patient had 2650 mL fluid drained. Peritoneal fluid shows WBC 143, polymorphs 35, mononuclear 108 therefore SBP ruled out. Fluid total protein 0.3 consistent with portal hypertensive ascites. Patient has hypokalemia 3.0, sodium 132. On spironolactone 25 mg twice daily increased to 50 mg twice daily. Hypoalbuminemia, hypergammaglobulinemia, A/G ratio 0.9. 01/20: Furosemide 20 mg daily and spironolactone 50 mg twice daily. Patient has itching in lower extremity therefore Calmoseptine ointment and Atarax ordered. 01/21: mild hypokalemia K3.1. Spironolactone dose increased to 125 mg daily. Furosemide 40 mg daily. Patient advised to follow-up with hepatology/GI. In clinic as he was evaluated in the past. Ascetic fluid culture did not show any growth. SBP ruled out #Acute on chronic anemia * Hemoglobin is 7.9 today; he was transfused with one unit of pRBC during this admission. Baseline is around 8-9 though he has been as low as 7.2 before. * No clear evidence of bleeding. * May be due to his history of liver disease also. * stool for ocult blood negative 01/19: H&H 7.6/22.3%. Platelet count 107K. 01/20: H&H 7.7, platelet count 93K. #Chronic thrombocytopenia: Platelet count is about 109K. It has been about 109 K- 130K #History of venous thrombosis: * Not anticoagulated due to history of hematuria. Will monitor. #History of hypotension: On midodrine. Continue midodrine #GERD: On PPI #Type 2 diabetes mellitus: On Lantus. Insulin sliding scale. Accu-Cheks ACHS. #Hyperlipidemia: On statin DVT prophylaxis: SCDs Discharge medication reconciliation done. Discharge follow-up instructions completed. Discharge process discussed with the patient and all questions were answered to patient's satisfaction. Follow with PCP in 1 to 2 weeks Total time spent, exact 35 minutes on discharge meds reconciliation, examination, coordination of care with nurses and ancillary staff, review of imaging and blood test and discussion with the patient on follow-up instructions. Microbiology Past 72 Hours 01/18/25 14:32 Fluid - Ascites Gram Stain - Final 01/18/25 14:32 Fluid - Ascites Body Fluid Culture - Preliminary No growth-Final to follow 01/18/25 19:00 Stool Stool Occult Blood (AUDIE) - Final Laboratory Results 01/18/25 14:32: Fl Pathologist Comment Reviewed 01/19/25 17:19: POC Glucose 268 H 01/19/25 21:47: POC Glucose 225 H 01/20/25 04:59: WBC 6.8, RBC 2.60 L, Hgb 7.7 L, Hct 22.9 L, MCV 88.1, MCH 29.6, MCHC 33.6, RDW Std Deviation 58.5 H, RDW Coeff of Francis 18.3 H, Plt Count 93 L, MPV 10.6, Immature Gran % (Auto) 1.200 H, Neut % (Auto) 63.5, Lymph % (Auto) 16.3 L, Cannon % (Auto) 11.9 H, Eos % (Auto) 6.5 H, Baso % (Auto) 0.6, Absolute Neuts (auto) 4.3, Absolute Lymphs (auto) 1.10, Nucleated RBC % 0, Differential Comment SCANNED, Platelet Estimate MOD DEC, Sodium 133, Potassium 3.1 L, C hloride 95 L, Carbon Dioxide 30.3, Anion Gap 7, BUN 12, Creatinine 0.87, Estim Creat Clear Calc 112.61, Est GFR (MDRD) Non-Af 100, BUN/Creatinine Ratio 13.4, G lucose 195 H, Calcium 8.1, Total Bilirubin 1.61 H, AST 45 H, ALT 32, Alkaline Phosphatase 211 H, Total Protein 4.9 L, Albumin 2.0 L, Globulin 2.9, A lbumin/Globulin Ratio 0.7 L 01/20/25 06:25: POC Glucose 164 H 01/20/25 11:49: POC Glucose 167 H Medications at Discharge Home Medications rifaximin 550 mg tablet (Xifaxan) 550 mg PO BID diarrhea #60 tabs 09/02/24 acetaminophen 500 mg tablet 1,000 mg PO Q8 PRN fever or pain 10/28/24 calcium 500 mg (as carbonate)-vitamin D3 5 mcg (200 unit) tablet (Oyster Shell Calcium-Vitamin D3) 1 tab PO DAILY supplement 10/28/24 folic acid 1 mg tablet 1 mg PO DAILY supplement 10/28/24 atorvastatin 40 mg tablet 40 mg PO DAILY cholesterol 11/21/24 furosemide 20 mg tablet 40 mg PO DAILY diuretic 11/21/24 magnesium oxide 400 mg (241.3 mg magnesium) tablet 400 mg PO DAILY supplement 11/21/24 metformin 500 mg tablet,extended release 24 hr 500 mg PO QPM diabetes 11/21/24 pantoprazole 20 mg tablet,delayed release 20 mg PO DAILY reflux 11/21/24 sodium bicarbonate 650 mg tablet 650 mg PO BID supplement 11/21/24 thiamine HCl (vitamin B1) 100 mg tablet 100 mg PO DAILY supplement 11/21/24 zinc sulfate 50 mg zinc (220 mg) tablet 50 mg PO DAILY supplement 11/21/24 ascorbic acid (vitamin C) 500 mg tablet 500 mg PO BID vitamin #60 tabs 11/25/24 midodrine 10 mg tablet 10 mg PO TID blood pressure 1 month #90 tabs 11/25/24 lactulose 10 gram/15 mL oral solution (Constulose) 15 ml PO TID PRN constipation 11/28/24 L.acidophil,salivari-Bifido bifidum-Strep thermoph 175 mg capsule 1 cap PO TID pobiotic #120 caps 12/02/24 cyclobenzaprine 10 mg tablet 10 mg PO QHS muscle relaxer 01/02/25 ferrous sulfate 325 mg (65 mg iron) tablet (FeroSul) 325 mg PO QODAY supplement 01/02/25 insulin glargine-yfgn 100 unit/mL (3 mL) subcutaneous pen 20 unit (0.2 mL) subcut QHS #0 mL 01/05/25 insulin lispro 100 unit/mL subcutaneous pen (Humalog KwikPen (U-100) Insulin) 10 unit (0.1 mL) subcut TIDAC #0 mL 01/05/25 insulin lispro 100 unit/mL subcutaneous pen (Humalog KwikPen (U-100) Insulin) See Protocol subcut ACHS #0 mL 01/05/25 insulin glargine-yfgn 100 unit/mL (3 mL) subcutaneous pen 25 unit (0.25 mL) subcut DAILY #15 mL 01/21/25 spironolactone 100 mg tablet 100 mg PO DAILY 1 month #30 tabs 01/21/25 spironolactone 25 mg tablet 25 mg PO DAILY 30 days #30 tabs 01/21/25 Physical Exam Narrative Seen and examined Patient complain of itching in the leg and leg swelling. Potassium is still 3.1 we will on spironolactone 100 mg daily therefore increased to 125 mg daily. HARRIS cirrhosis. Epidural injection was canceled due to coagulopathy INR 2.0. Advised follow-up outpatient Patient admitted for complaint of sepsis due to UTI but now UTI resolved and patient complained of back pain and imaging showed compression fracture. His pain is better. Had paracentesis yesterday, 2650 mL Physical exam General: Alert, Oriented x3, Cooperative HEENT: Atraumatic, PERRLA, EOMI, Normocephalic. Oral: No Gingival or Mucosal Lesions/ Ulcerations Neck: Supple, No JVD, Negative Carotid Bruits Chest wall/Lungs: Air entry diminished in bilateral lung bases. No crepitation/rhonchi Cardiovascular: Regular rate and rhythm, Normal S1,S2, No M/G/R Abdomen: Bowel Sounds Present, Soft, Non Tender, mildly distended abdomen, status post paracentesis : No dysuria. No renal angle tenderness. No suprapubic tenderness. Extremities: Bilateral 2 plus pitting LE edema, Capillary Refill Less than 3 Seconds Skin: Mild bruise over abdomen Musculoskeletal: No Tenderness to Palpation of Joints or Extremities Spine: Tenderness present over lumbar spine. Neurological: Cranial nerves II-XII grossly intact, DTR 2+/4. No acute focal neurological deficit. Psych/Mental Status: Normal Affect, Appropriate. Weight / BMI Weight Weight: 242 lb 11.663 oz Body Mass Index (BMI) 35.8 ABG / Lab / Microbiology Data 01/20/25 04:59 01/21/25 06:10 Laboratory: Laboratory Results - last 24 hr 01/18/25 14:32: Fl Pathologist Comment Reviewed 01/20/25 11:49: POC Glucose 167 H 01/20/25 16:57: POC Glucose 206 H 01/20/25 21:42: POC Glucose 188 H 01/21/25 06:10: Sodium 133, Potassium 3.1 L, Chloride 96 L, Carbon Dioxide 29.7, Anion Gap 7, BUN 13, Creatinine 0.86, Estim Creat Clear Calc 114.50, Est GFR (MDRD) Non-Af 100, BUN/Creatinine Ratio 15.6, Glucose 199 H, Calcium 8.1, Total Bilirubin 1.52 H, AST 48 H, ALT 28, Alkaline Phosphatase 204 H, Total Protein 4.7 L, Albumin 2.1 L, Globulin 2.6, Albumin/Globulin Ratio 0.8 L 01/21/25 06:41: POC Glucose 199 H Microbiology: Microbiology 01/18/25 14:32 Fluid - Ascites Gram Stain - Final 01/18/25 14:32 Fluid - Ascites Body Fluid Culture - Preliminary No growth-Final to follow 01/18/25 19:00 Stool Stool Occult Blood (AUDIE) - Final 01/09/25 13:35 Blood Culture (Wb) - Right Hand Blood Culture - Final No growth in 5 days. 01/09/25 13:30 Blood Culture (Wb) - Finger Blood Culture - Final No growth in 5 days. 01/09/25 13:28 Urine Catheter - Catheter Urine Culture - Final Yeast, not Mary albicans D/C Instructions DC O2, CPAP, BIPAP Needs Home O2 Discharge instructions: No Meaningful Use Info Meaningful Use Meaningful Use Diagnoses (Choose all that apply): None applicable Ischemic Stroke Statin Dosing Therapy Reference: STATIN DOSE THERAPY REFERENCE: * Patients > 75 years receive moderate or high dose statin therapy. * Patients 75 years or YOUNGER should receive HIGH intensity statin dose unless contraindicated. You will be required to document reason for non-treatment if statin daily dose does not meet guidelines. HIGH DOSE STATIN THERAPY DAILY Atorvastatin > than or = to 40 mg Rosuvastatin > than or = to 20 mg Amlodipine + Atorvastatin > than or = to 2.5/40 mg Ezetimibe + Simvastatin 10/80 mg Simvastatin 80mg Discharge Plan Admission Admit Date/Time: 01/09/25 14:16 Attending Provider: Anurag Irene Primary Care Provider: Josy Elias Consulting Providers: Yaritza Leo; Jefferson Malave; Aleyda Bautista; Cielo Tovar Instructions Additional Instructions / Restrictions: Follow-up in [facility] hepatology/GI. Discharge Orders/Prescriptions Prescriptions: New spironolactone 25 mg Tablet 25 mg PO DAILY 30 Days Qty: 30 2RF Rx Instructions: total 125 mg daily Hold for serum potassium more than 5.0 spironolactone 100 mg tablet 100 mg PO DAILY 30 Days Qty: 30 2RF Rx Instructions: Hold for serum potassium more than 5.0. Total 125 mg daily. Continued Xifaxan 550 mg Tablet 550 mg PO BID Qty: 60 0RF cyclobenzaprine 10 mg tablet 10 mg PO QHS ferrous sulfate [FeroSul] 325 mg (65 mg iron) tablet 325 mg PO QODAY insulin lispro [Humalog KwikPen Insulin] 100 unit/mL Insulin Pen See Protocol subcut ACHS Qty: 0 0RF Protocol: 4. Sliding Scale Insulin High-Med Dosing Condition: 150-199 mg/dl = 2 units Condition: 200-259 mg/dl = 4 units Condition: 260-324 mg/dl = 6 units Condition: 325-374 mg/dl = 8 units Condition: 375-409 mg/dl = 10 units Condition: 410-449 mg/dl = 11 units Condition: Greater than 449 call physician Protocol Text: Suggested for: - Patients on Total Daily Insulin Dose of 56-80 units - Patient who are known to be insulin resistant or septic HIGH MEDIUM DOSING ALGORITHM insulin lispro [Humalog KwikPen Insulin] 100 unit/mL Insulin Pen 10 unit subcut TIDAC Qty: 0 0RF insulin glargine-yfgn 100 unit/mL (3 mL) Insulin Pen 20 unit subcut QHS Qty: 0 0RF folic acid 1 mg tablet 1 mg PO DAILY calcium carbonate-vitamin D3 [Oyster Shell Calcium-Vit D3] 500 mg-5 mcg (200 unit) tablet 1 tab PO DAILY acetaminophen 500 mg Tablet 1,000 mg PO Q8 PRN (Reason: fever or pain) atorvastatin 40 mg tablet 40 mg PO DAILY furosemide 20 mg tablet 40 mg PO DAILY magnesium oxide 400 mg (241.3 mg magnesium) tablet 400 mg PO DAILY sodium bicarbonate 650 mg tablet 650 mg PO BID metformin 500 mg tablet extended release 24 hr 500 mg PO QPM thiamine HCl (vitamin B1) 100 mg tablet 100 mg PO DAILY pantoprazole 20 mg tablet,delayed release (DR/EC) 20 mg PO DAILY zinc sulfate 50 mg zinc (220 mg) tablet 50 mg PO DAILY midodrine 10 mg tablet 10 mg PO TID 30 Days Qty: 90 0RF Rx Instructions: do not give last dose of day after 6PM or within 4 hrs of bedtime ascorbic acid (vitamin C) 500 mg tablet 500 mg PO BID Qty: 60 2RF lactulose [Constulose] 10 gram/15 mL solution 15 ml PO TID PRN (Reason: constipation) Patient Comments: HASNT HAD TO TAKE Rx Instructions: Goal to have 2 soft bowel movements per day L.acidoph,saliva-B.bif-S.therm 175 mg Capsule 1 cap PO TID Qty: 120 0RF Changed insulin glargine-yfgn 100 unit/mL (3 mL) Insulin Pen 25 unit subcut DAILY Qty: 15 3RF Discontinued nadolol 20 mg tablet 20 mg PO DAILY spironolactone 50 mg tablet 100 mg PO DAILY potassium, sodium phosphates 280-160-250 mg Powder In Packet 1 packet PO BID Qty: 100 0RF Referrals / Follow Up: Josy Elias BOX OFFICE ATTENDANT-C [Primary Care Provider] - Within 2 Weeks Disposition Disposition (needs filled in before D/C Order can be placed): [facility] Facility Charges/Coding Visit Charges Inpatient E&M: 65354 Disch Hosp >30min
[2025-01-21] MEDS: Spironolactone 25 MG Tablet 75 MG PO (11:15)
[2025-01-21] MEDS: Insulin Glargine-YFGN 100 UNIT/ML Pen 20 UNIT SC (11:17)
[2025-01-21 11:19] VITALS: BP 110/68
--- NOTE | 2025-01-21 11:35 | CASEMGMT ---
Discharge Planning Discharge order, signed med list and transport time sent to [facility]. Physicians will transport pt by wheelchair at 1p. Nursing, SW, and pt updated. VM left for pts sig other (Mary). India Platt DC Planning Asst.
--- NOTE | 2025-01-21 11:35 | CASEMGMT ---
Patient was approved and will be discharged to [facility] today. Physicians will transport patient via wheelchair van. Plan: d/c to [facility] under intermediate level of care. Physicians will transport patient via wheelchair van. Hortencia ALCOCER
--- NOTE | 2025-01-21 11:48 | NURSING ---
Report called to Maritza at [facility].
[2025-01-21 12:20] LABS: Bedside Glucose 151 mg/dL (74-106)
[2025-01-21 13:00] VITALS: BP 100/60; PULSE 91; RESP 18; TEMP 36.5; O2SAT 97
[2025-01-21] MEDS: Menthol/Lanolin/Calamine/Znox 113 GM Tube 1 APPLIC TOPICAL (13:02)
--- NOTE | 2025-01-21 13:30 | NURSING ---
Maritza from [facility] updated that pt will be coming back with a script for oxycodone.
[2025-01-25 11:25] LABS: Mesothelial Cells 7 %
== END 2025-01-21 13:54 | disposition intermediate care facility (04) | DRG 720 ==
LOC: ED 14:15 → ICU 14:44 → PCU 01-11 15:31
PROVIDERS: Anesthesiology; Internal Medicine Pulmonary Disease; Student in an Organized Health Care Education/Training Program; Admitting Provider Internal Medicine; Emergency Provider Emergency Medicine; PCP Nurse Practitioner Family; Visit Provider Internal Medicine
DX: A41.9 Sepsis, unspecified organism (principal); E87.21 Acute metabolic acidosis; E87.22 Chronic metabolic acidosis; C41.2 Malignant neoplasm of vertebral column; D89.2 Hypergammaglobulinemia, unspecified; D69.6 Thrombocytopenia, unspecified; K74.69 Other cirrhosis of liver; R18.8 Other ascites; E11.9 Type 2 diabetes mellitus without complications; K76.6 Portal hypertension; D64.9 Anemia, unspecified; N17.9 Acute kidney failure, unspecified; E88.09 Other disorders of plasma-protein metabolism, not elsewhere classified; M48.04 Spinal stenosis, thoracic region; E87.1 Hypo-osmolality and hyponatremia; K40.20 Bilateral inguinal hernia, without obstruction or gangrene, not specified as recurrent; E78.00 Pure hypercholesterolemia, unspecified; Z79.4 Long term (current) use of insulin; K42.9 Umbilical hernia without obstruction or gangrene; E87.6 Hypokalemia; M48.062 Spinal stenosis, lumbar region with neurogenic claudication; M47.816 Spondylosis without myelopathy or radiculopathy, lumbar region; M51.46 Schmorl's nodes, lumbar region; M51.44 Schmorl's nodes, thoracic region; K21.9 Gastro-esophageal reflux disease without esophagitis; K75.81 Nonalcoholic steatohepatitis (NASH); I95.89 Other hypotension; E83.42 Hypomagnesemia; R79.1 Abnormal coagulation profile; Z53.09 Procedure and treatment not carried out because of other contraindication; M48.54XD Collapsed vertebra, not elsewhere classified, thoracic region, subsequent encounter for fracture with routine healing; R31.9 Hematuria, unspecified; G89.29 Other chronic pain; N39.0 Urinary tract infection, site not specified; N20.0 Calculus of kidney; Z79.84 Long term (current) use of oral hypoglycemic drugs; Z79.899 Other long term (current) drug therapy; Z87.891 Personal history of nicotine dependence; Z86.718 Personal history of other venous thrombosis and embolism
CPT/HCPCS: 36415; 49083; 71250; 72146; 72148; 74176; 76705; 80048; 80053; 80202; 81001; 82040; 82140; 82248; 82274; 82306; 82550; 82728; 82803; 82945; 82962; 83540; 83550; 83605; 83735; 84100; 84153; 84157; 85025; 85610; 85730; 86850; 86900; 86901; 87040; 87070; 87075; 87086; 87088; 87205; 87641; 88108; 88305; 88313; 89050; 94668; 94762; 97116; 97162; 97166; 97530; 97535; 97802; 97803; 99252; 99284; J2185; P9016; A4216; G0463; J2405

== ENCOUNTER 2025-01-28 02:55 | Inpatient (IN) | payer MEDICAID, SELFPAY ==
[2025-01-28] VITALS (11 sets, daily range): BP systolic 102–136; BP diastolic 51–92; PULSE 97–106; RESP 12–18; TEMP 36.4–37.1; O2SAT 96–100; BMI 31.7; BMI 33.0
[2025-01-28 03:33] LABS: Absolute Lymphocyte Count 0.98 X10^3/uL (0.83-4.51); Basophil# 0.04 X10^3/uL; Basophil% 0.8 % (0-1); Eosinophil# 0.24 X10^3/uL; Eosinophils% 4.6 % (0-5); Hematocrit 25.2 % (40-54); Hemoglobin 8.3 g/dL (13.0-16.5); Lymphocyte # 0.98 X10^3/ul (0.83-4.51); Lymphocyte % 18.8 % (19-41); Mean Corp Hgb Conc 32.9 g/dL (32-36); Mean Corpuscular Hgb 29.4 pg (27.0-32.0); Mean Corpuscular Volume 89.4 fL (80-94); Mean Platelet Vol. 11.5 fl (6.2-12.0); Monocyte# 0.87 X10^3/uL; Monocyte% 16.7 % (0-10); NRBC Flagged by Analyzer 0 % (0-5); Neutrophil # 3.01 X10^3/uL (2.7-7.7); Neutrophil % 57.8 % (47-70); Platelet Count 115 K/mm3 (150-450); RBC Distribution Width CV 18.4 % (11.6-14.6); RBC Distribution Width SD 60.7 fl (35.1-43.9); Red Blood Count 2.82 M/mm3 (4.6-6.2); White Blood Count 5.2 K/mm3 (4.4-11.0)
--- OUTSIDE RECORDS SUMMARY | 2025-01-28 03:36 | XMS RPT_ITS | CCD ---
Author Organization [facility] Care Team Providers Care Shiftman Name Role Phone Sergey HERNANDEZ, Maurice Soria Primary Care Provider Care Physician, No Primary Primary Care Provider Unavailable Anni NOYOLA, Dr. Delgado Attending Provider Dr. Danny Hutton DO Emergency Provider Dr. Luis Carlos Anderson DO Emergency Provider Mone HERNANDEZ, Dr. Maria Guadalupe Carlson Admit Provider [phone] Mone HERNANDEZ, Dr. Maria Guadalupe Carlson Referring Provider Mone HERNANDEZ, Dr. Maria Guadalupe Carlson Other Provider [phone] Rick Carlin DO Attending Provider Erin [...] Provider Desmond HERNANDEZ, Dr. Snow Other Provider [facility] karma Venegas MD, Dr. Whyte Other Provider Laurent HERNANDEZ, Dr. Raya Other Provider Angely HERNANDEZ, Dr. Silver Other Provider Jazmyne NOYOLA, Dr. Cuevas Other Provider Carmela HERNANDEZ, Dr. Tam Other Provider [phone] Mallorie HERNANDEZ, Dr. Kelly Other Provider Nuzhat NOYOLA, Dr. Cooper Other Provider Rosendo HERNANDEZ, Dr. Wesley Other Provider Dylan HERNANDEZ, Dr. Colon Other Provider Dr. Rick Carlin DO Other Provider Dr. Niranjan Li DO Attending Provider Dr. Rachel Joiner DO Emergency Provider Caro DO, Dr. Alejandre Admit Provider Unavail able Dr. Hill Caro DO Other Provider Unavail able Teto HERNANDEZ, Dr. Osborn Other Provider Dr. Boone Izquierdo DO Attending Provider Dr. Jae Ash DO Other Provider [phone] Karena HERNANDEZ, Dr. Andre Other Provider Abiodun HERNANDEZ, Dr. Foster Rivas Other Provider Teto HERNANDEZ, Dr. Osborn Referring Provider Nomi HERNANDEZ, Dr. Douglas Other Provider Teto HERNANDEZ, Dr. Anurag Attending Provider Dr. Jae Ash DO Attending Provider Timbo NOYOLA, Dr. Shook Other Provider TREY GUILLENA Attending Provider BILLDIANE Parada Referring Provider BILLDIANE Parada Other Provider Bailee DIRECTOR INSTRUMENTATION-C, Jasmine Attending Provider Shaun HERNANDEZ, Dr. Cmapo Emergency Provider Caro DO, Dr. Alejandre Attending Provider Unav ailable Care Physician, No Primary Primary Care Provider Unavailable [facility], Dr. Delgado Attending Provider GeorgiLucero NOYOLA, Dr. Delgado Emergency Provider Justin NOYOLA, [...] Provider Ashely HERNANDEZ, Dr. Foote Other Provider [phone] Cassandra HERNANDEZ, Dr. Garvin Other Provider Yamil HERNANDEZ, Dr. Solis Other Provider Rojas HERNANDEZ, Dr. Enriquez Other Provider Seble HERNANDEZ, Dr. Hernández Other Provider Desmond HERNANDEZ, Dr. Snow Other Provider Unavailabl karma Venegas MD, Dr. Whyte Other Provider [phone] Laurent HERNANDEZ, Dr. Raya Other Provider Angely HERNANDEZ, Dr. Silver Other Provider Jazmyne NOYOLA, Dr. Cuevas Other Provider Carmela HERNANDEZ, Dr. Tam Other Provider Mallorie HERNANDEZ, Dr. Kelly Other Provider [phone] Nuzhat NOYOLA, Dr. Cooper Other Provider Rosendo HERNANDEZ, Dr. Wesley Other Provider [phone] Dylan HERNANDEZ, Dr. Colon Other Provider Raegan NOYOLA, Dr. Cabrera Other Provider Dr. Niranjan Li DO Attending Provider Dr. Rachel Joiner DO Emergency Provider Caro DO, Dr. Alejandre Admit Provider Unavail able Dr. Hill Caro DO Other Provider Unavail able eTto HERNANDEZ, Dr. Osborn Other Provider Dr. Boone Izquierdo DO Attending Provider Dr. Jae Ash DO Other Provider [phone] Karena HERNANDEZ, Dr. Andre Other Provider Abiodun HERNANDEZ, Dr. Foster Rivas Other Provider Teto HERNANDEZ, Dr. Osborn Referring Provider Nomi HERNANDEZ, Dr. Douglas Other Provider Dr. Anurag Irene MD Attending Provider Dr. Jae Ash DO Attending Provider Dr. Boone Izquierdo DO Other Provider BILLTREY ParadaA Attending Provider BILLKarmaDIANE Referring Provider BILLKarma, DIANE Other Provider Bailee DIRECTOR INSTRUMENTATION-CJasmine Attending Provider Shaun HERNANDEZ, Dr. Campo Emergency [...] Dr. Scott Weston DO Other Provider Elie DIRECTOR INSTRUMENTATION-C, Yue Other Provider Dr. Hill Caro DO Referring Provider Unav ailable Shila HERNANDEZ, Dr. Buster Barr Attending Provider Shila HERNANDEZ, Dr. Buster Barr Referring Provider Dr. Hill Acuña MD Attending Provider Unavaila Dr. Kathie Martinez MD Other Provider Unavailable Primary Care Provider Unavailyanick Carlson MD, Dr. Kevin Emergency Provider Dr. Jae Ash DO Admit Provider Gio HERNANDEZ, Dr. Vázquez Admit Provider Tannhof DIRECTOR INSTRUMENTATION-C, Josy Primary Care Provider Curt DIRECTOR INSTRUMENTATION-C, Josy Attending Provider KATHIE LEMOS Referring Unavailable DAY PRICE Admitting Unavailable YOUNG CRUZ Attending Unavailable Care Physician, No Primary Primary Care Provider Unavailable Curt ROSA-C, Josy Referring Provider Wei NOYOLA, Dr. Shook Emergency Provider Raegan NOYOLA, Dr. Cabrera Other Provider Jen NOYOLA, Dr. Ureña Attending Provider Zelalem HERNANDEZ, Dr. Coker Other Provider Trinidad HERNANDEZ, Dr. Gonzales Other Provider Oli HERNANDEZ, Dr. Pizarro Other Provider Kt NOYOLA, Dr. Plaza Attending Provider [phone] Kt NOYOLA, Dr. Plaza Other Provider Víctor HERNANDEZ, Dr. iHll Alcaraz Other Provider Ashli HERNANDEZ, Dr. Aguilar Other Provider [phone] Missael HERNANDEZ, Dr. Cotton Other Provider Ashely HERNANDEZ, Dr. Foote Other Provider [phone] Cassandra HERNANDEZ, Dr. Garvin Other Provider Dr. Will Lobo MD Other Provider [phone] Mina Xie MD Other Provider [phone] Dr. Betty Pruett MD Other Provider Dr. Gwendolyn Logan MD Other Provider Unavailabl karma Venegas MD, Dr. Whyte Other Provider Laurent HERNANDEZ, Dr. Raya Other Provider Dr. Nadeem Au MD Other Provider Dr. Mason Samano DO Other Provider Dr. Anel Casey MD Other Provider [phone] Robin Nobles MD Other Provider Dr. Kenneth Noland DO Other Provider Rosendo HERNANDEZ, Dr. Wesley Other Provider [phone] Dylan HERNANDEZ, Dr. Colon Other Provider Jeremi NOYOLA, Dr. Enriquez Emergency Provider Care Physician, No Primary Primary Care Provider Unavailable Erin HERNANDEZ, Dr. Rocha Other Provider Jen DO, Dr. Ureña Attending Provider Wei DO, Dr. Shook Attending Provider Lala DO, Dr. Pereyra Emergency Provider hSila HERNANDEZ, Dr. Buster Barr Admit Provider Teto HERNANDEZ, Dr. Osborn Attending Provider Zelalem HERNANDEZ, Dr. Coker Other Provider Trinidad HERNANDEZ, Dr. Gonzales Other Provider Oli HERNANDEZ, Dr. Pizarro Other Provider Dr. Bola Meraz DO Attending Provider [phone] Bola Meraz DO Other Provider Víctor HERNANDEZ, Dr. Hill Alcaraz Other Provider Ashli HERNANDEZ, Dr. Aguilar Other Provider Missael HERNANDEZ, Dr. Cotton Other Provider Ashely HERNANDEZ, Dr. Foote Other Provider [phone] Cassandra HERNANDEZ, Dr. Garvin Other Provider [phone] Dr. Will Lobo MD Other Provider [phone] Dr. Mina Xie MD Other Provider Seble HERNANDEZ, Dr. Hernández Other Provider Desmond HERNANDEZ, Dr. Snow Other Provider [facility] karma Mosher MD, Dr. Douglas Other Provider Theo HERNANDEZ, Dr. Whyte Other Provider Laurent HERNANDEZ, Dr. Raya Other Provider [phone] Angely HERNANDEZ, Dr. Silver Other Provider Jazmyne NOYOLA, Dr. Cuevas Other Provider Carmela HERNANDEZ, Dr. Tam Other Provider [phone] Gerardo Nobles MD, Dr. Kelly Other Provider [phone] Nuzhat NOYOLA, Dr. Cooper Other Provider Rosendo HERNANDEZ, Dr. Wesley Other Provider [phone] Dylan HERNANDEZ, Dr. Colon Other Provider Dr. Jae Ash DO Attending Provider Teto HERNANDEZ, Dr. Osborn Attending Provider Jeremi NOYOLA, Dr. Enriquez Attending Provider Vanessa NOYOLA, Dr. Crain Emergency Provider Dr. Yaritza Leo DO Admit Provider Dr. Yaritza Leo DO Attending Provider Care Physician, No Primary Primary Care Provider Unavailable Caro DO, Dr. Alejandre Admit Provider Unavail able Dr. Hill Caro DO Other Provider Unavail able Abiodun HERNANDEZ, Dr. Foster Rivas Other Provider Dr. Jae Ash DO Attending Provider Dr. Jae Ash DO Other Provider [phone] Teto HERNANDEZ, Dr. Osborn Other Provider Dr. Rachel Joiner DO Emergency Provider Karena HERNANDEZ, Dr. Andre Other Provider Dr. Yaritza Leo DO Other Provider Frieda HERNANDEZ, Dr. Jefferson Marte Other Provider Lily HERNANDEZ, Dr. Maynard Other Provider Guy HERNANDEZ, Dr. Cielo Lan Other Provider Guy HERNANDEZ, Dr. Cielo Lan Referring Provider Gyu HERNANDEZ, Dr. Cielo Lan Attending Provider Frieda HERNANDEZ, Dr. Jefferson Marte Attending Provider Hill Caro Admitting Unavailable Jae Ash Attending Unavailable Care Physician, No Primary Primary Care Unava ilable Foster Rascon Consulting Unavailable Hill Caro Consulting Unavailable Thai Thurston Consulting Unavailable Erin, Jayaprakas Consulting Unavailable Teto, Anurag Consulting Unavailable Jae Ash Consulting Unavailable Care Physician, No Primary Primary Care Unava ilable KALEB LEUNG Attending Unavailable KALEB LEUNG Referring Unavailable Josy Elias Primary Care Unavailable Josy Elias Attending Unavailable Yaritza Leo Consulting Unavailable Yaritza Leo Admitting Unavailable Anurag Irene Attending Unavailable Josy Elias Primary Care Unavailable Jefferson Malave Consulting Unavailable Aleyda Bautista Consulting Unavailable Guy Cielo Edyta Consulting Unavailable Teto, Anurag Consulting Unavailable Cielo Tovar Attending Unavailable Bola Meraz Attending Unavailable Maria Guadalupe Shore Admitting Unavailable John Paul Masterson Consulting Unavailable Maria Guadalupe Shore Referring Unavailable Care Physician, No Primary Primary Care Unava ilable Christian Abdi Consulting Unavailable Juarez Baird Consulting Unavailable Bola Meraz Consulting Unavailable Hill Renee Consulting Unavailable Jeff Cornelius Consulting Unavailable Yury Canas Consulting Unavailable Dary Lund Consulting UnavailBharathi East Consulting Unavailable Will Lobo Consulting Unavailable Mina Xie Consulting Unavailable Betty Pruett Consulting Unavailable Gwendolyn Logan Consulting Unavailable Theo, Pato Consulting Unavailable IrRigo hutchinsan Consulting Unavailable Angely, Nadeem Consulting Unavailable Mason Samano Consulting Unavailable Anel Casey Consulting Unavailable Robin Nobles Consulting Unavailable Kenneth Noland Consulting Unavailable Lupillo Robbins Consulting Unavailable Young Richardson Consulting Unavailable Maria Guadalupe Shore Consulting Unavailable Erin, Jayaprakas Consulting Unavailable Rick Carlin Consulting Unavailable Jefferson Malave Attending Unavailable Teto, Anurag Referring Unavailable Josy Elias Primary Care Unavailable Josy Elias Attending Unavailable Josy Elias Referring Unavailable Kathie Lemos Consulting Unavailable Kathie Lemos Admitting Unavailable Care Physician, No Primary Primary Care Unava ilable Hill Acuña Attending Unavailable Thai Thurston Consulting Unavailable Hill Acuña Consulting Unavailable Jae Ash Consulting Unavailable Jae Ash Admitting Unavailable Jae Ash Attending Unavailable Care Physician, No Primary Primary Care Unava ilable Buster Fuchs Consulting Unavailable Buster Fuchs Admitting Unavailable Josy Elias Primary Care Unavailable Hill Acuña Attending Unavailable Hill Acuña Consulting Unavailable Buster Fuchs Attending Unavailable Kathie Lemos Attending Unavailable Jae Ash Consulting Unavailable Jae Ash Admitting Unavailable Care Physician, No Primary Primary Care Unava ilable Anurag Irene Attending Unavailable Anurag Irene Consulting Unavailable Anurag Irene Attending Unavailable Anurag Irene Consulting Unavailable Yaritza Leo Consulting Unavailable Yaritza Leo Admitting Unavailable Josy Elias Primary Care Unavailable Anurag Irene Attending Unavailable Jefferson Malave Consulting Unavailable Aleyda Bautista Consulting Unavailable Cielo Tovar Consulting Unavailable Hill Caro Admitting Unavailable Boone Izquierdo Attending Unavailable Hill Caro Consulting Unavailable Care Physician, No Primary Primary Care Unava ilable Anurag Irene Consulting Unavailable Jae Ash Consulting Unavailable Thai Thurston Consulting Unavailable Erin, Tyronyaprakas Consulting Unavailable Foster Rascon Consulting Unavailable Care Physician, No Primary Primary Care Unava ilable Hill Caro Admitting Unavailable Hill Caro Consulting Unavailable Kathie Lemos Attending Unavailable Foster Rascon Consulting Unavailable Buster Fuchs Consulting Unavailable Hill Acuña Consulting Unavailable Hill Herrmann Consulting Unavailable Blair Cage Consulting Unavailable Thiago Wray Consulting Unavailable Gabbi Huhges Consulting Unavailable Thai Godfrey Consulting Unavailable Juan Daniel Garza Consulting Unavailable Zachariah Glover Consulting Unavailable Scott Weston Consulting Unavailable Elie ROSA, Yue Consulting Unavailable Rick Carlin Attending Unavailable Maria Guadalupe Shore Admitting Unavailable Maria Guadalupe Shore Referring Unavailable Maria Guadalupe Shore Consulting Unavailable Care Physician, No Primary Primary Care Unava ilable Erin, Jayaprakas Consulting Unavailable Maria Guadalupe Shore Attending Unavailable Niranjan Li Attending Unavailable Care Physician, No Primary Primary Care Unava ilable Hill Caro Admitting Unavailable John Paul Masterson Consulting Unavailable Shila, Buster F Referring Unavailable Christian Abdi Consulting Unavailable Juarez Baird Consulting Unavailable Bola Meraz Consulting Unavailable Hill Renee Consulting Unavailable Jeff Cornelius Consulting Unavailable Yury Canas Consulting Unavailable Dary Lund Consulting UnavailBharathi East Consulting Unavailable Will Lobo Consulting Unavailable Mina Xie Consulting Unavailable Betty Pruett Consulting Unavailable AlGwendolyn veliz Consulting Unavailable Stella Mosher Consulting Unavailable Pato Venegas Consulting Unavailable Elver Mancilla Consulting Unavailable Angely, Nadeem Consulting Unavailable DheMason fischer Consulting Unavailable Anel Casey Consulting Unavailable Robin Nobles Consulting Unavailable Kenneth Noland Consulting Unavailable Lupillo Robbins Consulting Unavailable Young Richardson Consulting Unavailable Hill Caro Consulting Unavailable Foster Rascon Consulting Unavailable Davidonis, Buster F Consulting Unavailable hSila Buster F Attending Unavailable Bola Meraz Attending Unavailable Hill Caro Referring Unavailable Hill Acuña Attending Unavailable Hill Acuña Consulting Unavailable Niranjan Li Attending Unavailable Mina Blood Attending Unavailable Josy Elias Primary Care Unavailable Josy Elias Primary Care Unavailable Boone Carvajal Attending Unavailable Danny Hutton Attending Unavailabl e Care Physician, No Primary Primary Care Unava ilable Care Physician, No Primary Primary Care Unava ilable KALEB LEUNG Attending Unavailable KALEB LEUNG Referring Unavailable Anurag Irene Attending Unavailable Kathie Lemos Consulting Unavailable Kathie Lemos Admitting Unavailable Hill Acuña Attending Unavailable Care Physician, No Primary Primary Care Unava ilable Thai Thurston Consulting Unavailable DavidonisBeauBuster F Consulting Unavailable Koviolettas Buster F Admitting Unavailable Josy Elias Primary Care Unavailable Hill Acuña Attending Unavailable Jae Ash Consulting Unavailable Jae Ash Admitting Unavailable Care Physician, No Primary Primary Care Unava ilable Anurag Irene Attending Unavailable Koram, Cielo Edyta Referring Unavailable Bola Meraz Attending Unavailable Rick Carlin Attending Unavailable Bola Meraz Attending Unavailable Anurag Irene Referring Unavailable John Paul Masterson Consulting Unavailable Trinidad, Christian Consulting Unavailable Juarez Baird Consulting Unavailable Bola Meraz Consulting Unavailable Hill Renee Consulting Unavailable Jeff Cornelius Consulting Unavailable Missael, Yury Consulting Unavailable Habtegebriel, Dary Consulting Unavailab le Dand, Bharathi Consulting Unavailable Lobo, Will Consulting Unavailable Mina Xie Consulting Unavailable Seble, Betty Consulting Unavailable Aljundi, Lamia Consulting Unavailable Mosher, Stella Consulting Unavailable Theo, Pato Consulting Unavailable Irukulla, Elver Consulting Unavailable Angely, Nadeem Consulting Unavailable Dhesi, Mason Consulting Unavailable Anel Casey Consulting Unavailable Raccoon, Soleaniketh Consulting Unavailable Fernstrfrancisca, Kenneth Consulting Unavailable Rosendo, Lupillo Consulting Unavailable Young Richardson Consulting Unavailable John Paul Masterson Consulting Unavailable Trinidad, Christian Consulting Unavailable Juarez Baird Consulting Unavailable Bola Meraz Consulting Unavailable Hill Renee Consulting Unavailable Ashli, Jeff Consulting Unavailable Missael, Yury Consulting Unavailable Habtegebriel, Dary Consulting Unavailab le Dand, Bharathi Consulting Unavailable Lobo, Will Consulting Unavailable Mina Xie Consulting Unavailable Seble, Betty Consulting Unavailable Aljundi, Lamia Consulting Unavailable Mosher, Stella Consulting Unavailable Theo, Pato Consulting Unavailable Irukulla, Elver Consulting Unavailable Angely, Nadeem Consulting Unavailable Dhesi, Mason Consulting Unavailable Anel Casey Consulting Unavailable Raccoon, Soleyah Consulting Unavailable Fernstrom, Kenneth Consulting Unavailable Rosendo, Lupillo Consulting Unavailable Young Richardson Consulting Unavailable Yaritza Leo Attending Unavailable Boone Izquierdo Attending Unavailable Boone Izquierdo Consulting Unavailable Care Physician, No Primary Primary Care Unava ilable KALEB LEUNG Consulting Unavailable KALEB LEUNG Referring Unavailable Bailee ROSA, Jasmine Attending Unavailable Hill Caro Attending Unavailable Kathie Lemos Attending Unavailable Hill Herrmann Consulting Unavailable Blair Cage Consulting Unavailable Thiago Wray Consulting Unavailable Gabbi Hughes Consulting Unavailable Thai Godfrey Consulting Unavailable Juan Daniel Garza Consulting Unavailable Zachariah Glover Consulting Unavailable Scott Weston Consulting Unavailable Yue Delgadillo NP Consulting Unavailable Kathie Lemos Consulting Unavailable Hill Caro Unavailable Medications Current Medications Medication Drug Class(es) Dates Sig (Normalized) Sig (Original) acetaminophen 500 mg oral tablet (20 sources) Start: 09-14-2024 End: 10-28-2024 Acetaminophen 50 0 mg cap Take by mouth. Active ascorbic acid 500 mg oral tablet (8 sources) Vitamin C Start: 11-25-2024 atorvastatin 40 mg oral tablet (9 sources) HMG-CoA Reductase Inhibitor Start: 11-21-2024 calcium [...] (1 source) take 1 tablet by bipin th once daily ferrous sulfate tablet Take 1 [...] 11/03/2024 Active take 2 tablets by mo [facility] once daily furosemide (LASIX) 20 mg [...] Active magnesium oxide 400 mg oral tablet (9 sources) Start: 11-21-2024 24 hr metFORMIN hydrochlorid e 500 mg extended release oral tablet (12 sources) Biguanide Start: 11-21-2024 Start: 11-18-2024 take 1 tablet by bipin once daily at dinner metFORMIN ER (GLUMETZA) 500 mg 24 hr tablet Take 1 tablet by mouth daily with dinner. 90 tablet 11 11/18/2024 Active midodrine hydrochloride 10 m g oral tablet (20 sources) alpha-Adrenergic Agonist Start: 11-25-2024 Start: 09-02-2024 End: 10-28-2024 take 1 tablet by bipin three times daily midodrine (Proamatine) 5 mg tablet Take 1 tablet (5 mg) by mouth 3 times daily (morning, midday, late afternoon). Active oxyCODONE hydrochloride 5 mg oral tablet (3 sources) Opioid Agonist Start: 01-21-2025 Start: 10-04-2024 End: 10-04-2024 take 5 mg by mouth once as needed for pain 5 mg, oral, Once, On Fri10/04/24 at 1905, For 1 dose, If ordered PRN for pain, nurse is permitted to administer this medication for higher pain scores based on patient preference? Yes take 1 capsule by mo [facility] every six hours as needed oxyCODONE (Oxy-IR) 5 mg immediate release capsule Take 1 capsule (5 mg) by mouth every 6 hours if needed for severe pain (7 - 10). Active pantoprazole 20 mg delayed r elease oral [...] 09-02-2024 sodium bicarbonate 650 mg oral tablet (11 sources) Start: 11-21-2024 Start: 11-18-2024 End: 12-18-2024 take 1 tablet by mouth twice daily sodium bicarbonate 650 mg tablet 1 tablet by ORAL/FEEDING TUBE route two times a day. 60 tablet 11/18/2024 12/18/2024 Active spironolactone 25 mg oral ta blet (15 sources) Aldosterone Antagonist Start: 01-21-2025 Start: 01-21-2025 Start: 11-21-2024 End: 01-21-2025 Start: 11-18-2024 take 1 tablet by bipin [...] Active zinc sulfate 220 mg oral tablet (12 sources) Start: 11-21-2024 Start: 11-18-2024 take 1 capsule by [facility] once daily zinc sulfate 220 mg (50 mg zinc) capsule Take 1 capsule by mouth once daily. 30 capsule 3 11/18/2024 Active (20 sources) Start: 01-21-2025 Start: 01-05-2025 End: 01-21-2025 Start: 01-05-2025 Start: 01-02-2025 Start: 12-02-2024 End: 01-21-2025 Start: 12-02-2024 Start: 11-21-2024 End: 12-30-2024 Start: 11-21-2024 Start: 09-02-2024 End: 09-14-2024 Completed/Discontinued Medications Medication Drug Class(es) Dates Sig (Normalized) Sig (Original) acetaminophen 325 mg / HYDROcodone bitartrate 5 mg oral tablet (12 sources) Opioid Agonist Start: 09-02-2024 End: 09-14-2024 Start: 09-02-2024 End: 09-14-2024 Hydrocodone-Acetaminophen 5- 325 mg Tablet Discontinued 1 {tbl} PO EVERY 4 HOURS NEEDED as needed for Pain Score 1-10 30 7 September 02, 2024 September 14, 2024 6:37pm apixaban 5 mg oral tablet (9 sources) Factor Xa Inhibitor Start: 11-21-2024 End: 11-25-2024 cephalexin 500 mg oral capsu le (5 sources) Cephalosporin Antibacterial Start: 12-30-2024 End: 01-05-2025 doxycycline monohydrate 100 mg oral capsule (12 sources) Tetracycline-class Drug Start: 09-14-2024 End: 10-28-2024 0.8 ml enoxaparin sodium 150 mg/ml prefilled syringe (12 sources) Low Molecular Weight Heparin Start: 11-21-2024 End: 12-30-2024 Start: 11-18-2024 inject 100 mg by sub cutaneous injection every twelve hours enoxaparin (LOVENOX) 120 mg/0.8 mL injection Inject 99 mg subcutaneously every 12 hours. Inject 0.7 mL subcutaneously every 12 hours 48 mL 2 11/18/2024 Active fluconazole 200 mg oral tabl et (11 sources) Azole Antifungal Start: 11-18-2024 End: 11-27-2024 ibuprofen 800 mg oral tablet (19 sources) Nonsteroidal Anti-inflammatory Drug Start: 10-28-2024 End: 11-25-2024 take 1 tablet by bipin th every eight hours as needed ibuprofen (MOTRIN) 800 mg tablet Take 80 0 mg by mouth every 8 hours as needed for fever (specify temp.) or pain. Suspended imiquimod 50 mg/ml topical cream (8 sources) Start: 12-02-2024 End: 12-30-2024 Insulin Glargine-Yfgn [...] mL, intravenous, Once in imaging, Starting on 10/04/24 at 1417, For 1 dose lactulose 667 [...] Active levoFLOXacin 500 mg oral tab let (14 sources) Quinolone Antimicrobial Start: 11-25-2024 End: 01-02-2025 [...] On Fri10/04/24 at 1525, For 1 dose nadolol 20 mg oral tablet (3 sources) beta-Adrenergic Tracey Start: 01-02-2025 End: 01-21-2025 ondansetron 4 mg disintegrating oral tablet (3 sources) Serotonin-3 Receptor Antagonist Start: 10-04-2024 End: 10-04-2024 take 4 mg by mouth once 4 mg, oral, Once, On Fri10/04/24 at 2115, For 1 dose Start: 10-04-2024 End: 10-04-2024 4 mg, intravenous, Once, On Fri10/04/24 at 1525, For 1 dose, When administering via IV Push, administer over 3-5 minutes. vancomycin 125 mg oral capsu le (8 sources) Glycopeptide Antibacterial Start: 12-02-2024 End: 01-05-2025 Problems Active Problems Problem Classification Problem Date Documented Da te Episodic/Chronic Abdominal hernia (3 sources) Umbilical hernia; Translations: [Umbilical hernia without obstruction or gangrene] Onset: 01-26-2025 01-11-2025 Episodic Abdominal pain (20 sources) Generalized abdominal pain; Translations: [Generalized abdominal pain] Onset: 10-04-2024 10-04-2024 Episodic Acute and unspecified renal failure (20 sources) Acute renal failure syndrome; Translations: [Acute kidney failure, unspecified] Onset: 01-11-2025 09-10-2024 Episodic Acute posthemorrhagic anemia (18 sources) Acute posthemorrhagic anemia; Translations: [Acute posthemorrhagic [...] Onset: 11-11-2024 Episodic Diabetes mellitus without complication (5 sources) Insulin treated type 2 diabetes mellitus; Translations: [Type 2 diabetes mellitus without complications] 12-30-2024 Chronic Diabetes mellitus without complication (5 sources) Hyperglycemia; Translations: [Hyperglycemia, unspecified] 12-30-2024 Episodic Diseases of white blood cells (20 sources) Leukocytosis; Translations: [Elevated white blood cell count, unspecified] Onset: 01-26-2025 09-23-2024 Chronic E Codes: Fall (20 sources) Fall; Translations: [Unspecified fall, initial encounter] Onset: 01-11-2025 08-29-2024 Episodic Fluid and electrolyte disorders (20 sources) Lactic acidosis; Translations: [Lactic acidosis] Onset: 11-11-2024 09-23-2024 Episodic Genitourinary symptoms and ill-defined conditions (20 sources) Blood in urine; Translations: [Hematuria, unspecified] Onset: 01-26-2025 11-21-2024 Episodic Hepatitis (20 sources) Cirrhosis - non-alcoholic; 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 (BOYER)] Onset: 09-17-2024 09-23-2024 Chronic Intestinal infection (20 sources) Clostridium difficile colitis; Translations: [Enterocolitis due to Clostridium difficile, not specified as recurrent] Onset: 11-11-2024 Resolved: 11-18-2024 10-30-2024 Episodic Malaise and fatigue (20 sources) Asthenia; Translations: [Weakness] Onset: 11-11-2024 09-05-2024 Episodic Nonspecific chest pain (6 sources) Chest pain; Translations: [Chest pain, unspecified] [...] kidney and ureter, unspecified] 09-23-2024 Episodic Other fractures (4 sources) Compression fracture of thoracic spine; Translations: [Collapsed vertebra, not elsewhere classified, thoracic region, initial encounter for fracture] 01-09-2025 Episodic Other fractures (1 source) Collapsed vertebra, not elsewhere classified, thoracic region, initial encounter for fracture; Translations: [Collapsed vertebra, not elsewhere classified, thoracic region, initial encounter for fracture] Onset: 01-21-2025 Episodic Other gastrointestinal disorders (20 sources) Ascites; Translations: [Other ascites] Onset: 10-04-2024 10-04-2024 Episodic Other gastrointestinal disorders (20 sources) Diarrhea; Translations: [Diarrhea, unspecified] 10-29-2024 Episodic [...] 11-11-2024 Episodic Skin and subcutaneous tissue infections (18 sources) Cellulitis of abdominal wall ; Translations: [Cellulitis of abdominal wall] Onset: 12-04-2024 12-03-2024 Episodic Spondylosis; intervertebral disc disorders; other back problems (20 sources) Chronic back pain ; Translations: [Dorsalgia, unspecified] Onset: 09-10-2024 09-23-2024 Episodic Superficial injury; contusion (12 sources) Contusion of lower back; Translations: [Contusion of lower back and pelvis, initial encounter] 08-29-2024 Episodic Unclassified (2 sources) In the next 2 weeks as scheduled Unclassified (2 sources) Dr. Redman Unclassified (1 source) Acidosis, unspecified; Translations: [Acidosis, unspecified] Onset: 01-26-2025 Unclassified (1 source) Obesity, class 1; Translations: [...] and ureter, unspecified] Onset: 09-17-2024 Episodic Other gastrointestinal disorders (4 sources) Other ascites; Translations: [Other ascites] Onset: 10-04-2024 Episodic Other injuries and conditions due to external causes (1 source) Encounter for examination and observation following other accident; Translations: [Encounter for examination and observation following other accident] Onset: 09-08-2024 Episodic Other liver diseases (20 sources) Hepatic encephalopathy; Translations: [Hepatic encephalopathy] Onset: 09-17-2024 09-10-2024 Episodic Results Test Name Value Interpretation Reference Range Facility Body Fluid Cell Count+Diffon 01-25-2025 MESOTHELIAL 7 Normal [facility] Comment on above: Order Comment: The r eference range and other method performancespecifications have not been established for this bodyfluid. The test must be integrated into the clinicalcontext for interpretation. Result Comment: AMENDED REPORT 01/25/25 1125 OTHER CELL/BF previously reported as: 7 % Performed By: #### L 200.0200, M100.2000, M100.2900, M100.4001 ####[facility] [address] [place], [address] Culture, Anaerobic Any Sourc iliana 01-24-2025 CUAN No growth in 5 days. Normal [facility] Comment on above: Performed By: #### L 200.0200, M100.2000, M100.2900, M100.4001 ####[facility] [address] [place], [address] Anion gap in Serum or Plasma Ordered By: Anurag Irene on 01-21-2025 Anion gap [Moles/Vol] 7 mmol/L 5-15 [facility] BUN/creatinine ratioOrdered By: Anurag Irene on 01-21-2025 Urea nitrogen/Creatinine [Mass ratio] 15.6 mg/mg 10-20 [facility] Bedside Glucoseon 01-21-2025 FINGERSTICK GLU 151 mg/dL High 74-106 [facility] Comment on above: Result Comment: BRISA GEMENT OF PATIENT CARE PER NURSING PROTOCOL Performed By: #### L 501.080 ####[facility] [address] [facility] [address] FINGERSTICK GLU 199 mg/dL High 74-106 [facility] Comment on above: Result Comment: BRISA GEMENT OF PATIENT CARE PER NURSING PROTOCOL Performed By: #### L 501.080 ####[facility] [address] [place], [place], [address] Bilirubin, totalOrdered By: Anurag Irene on 01-21-2025 Bilirubin [Mass/Vol] 1.52 mg/dL High 0.00-1.30 [facility] Carbon dioxide, total [Moles /volume] in Central venous bloodOrdered By: Anurag Irene on 01-21-2025 CO2 [Moles/Vol] 29.7 mmol/L 21.0-32.0 [facility] Chloride assayOrdered By: Francois Irene on 01-21-2025 Chloride [Moles/Vol] 96 mmol/L Low 98-108 [facility] Comprehensive Metabolic Prof ilon 01-21-2025 Albumin [Mass/Vol] 2.1 g/dL Low 3.5-5.0 [facility] Comment on above: Performed By: #### L 500.4050 ####[facility] [address] [place], [address] Albumin/Globulin [Mass ratio] 0.8 {ratio} Low 0.9-2.4 [facility] Comment on above: Performed By: #### L 500.4050 ####[facility] [address] [place], [address] ALK PHOS 204 U/L High 40-129 [facility] Comment on above: Performed By: #### L 500.4050 ####[facility] [address] [place], [address] ALT [Catalytic activity/Vol] 28 U/L Normal <=46 [facility] Comment on above: Performed By: #### L 500.4050 ####[facility] [address] [place], [address] AST [Catalytic activity/Vol] 48 U/L High <=37 [facility] Comment on above: Performed By: #### L 500.4050 ####[facility] [address] [place], [address] Bilirubin [Mass/Vol] 1.52 mg/dL High 0.00-1.30 [facility] Comment on above: Performed By: #### L 500.4050 ####[facility] [address] [place], [address] BUN/CRE 15.6 RATIO Normal 10-20 [facility] Comment on above: Performed By: #### L 500.4050 ####[facility] [address] [place], [address] Calcium [Mass/Vol] 8.1 mg/dL Normal 7.6-11.0 [facility] Comment on above: Performed By: #### L 500.4050 ####[facility] [address] [place], [address] Chloride [Moles/Vol] 96 mmol/L Low 98-108 [facility] Comment on above: Performed By: #### L 500.4050 ####[facility] [address] [place], [address] CO2 [Moles/Vol] 29.7 mmol/L Normal 21.0-32.0 [facility] Comment on above: Performed By: #### L 500.4050 ####[facility] [address] [place], [address] Creatinine [Mass/Vol] 0.86 mg/dL Normal 0.70-1.20 [facility] Comment on above: Performed By: #### L 500.4050 ####[facility] [address] [place], [address] ECRCL 114.50 ml/min Normal 50-250 [facility] Comment on above: Performed By: #### L 500.4050 ####[facility] [address] [place], [address] GAP 7 Normal 5-15 [facility] Comment on above: Performed By: #### L 500.4050 ####[facility] [address] [place], [address] GFR/1.73 sq M.predicted among non-blacks MDRD (S/P/Bld) [Vol rate/Area] 100 mL/min/{1.73_m2} Normal >60 [facility] Comment on above: Result Comment: mL/m in/1.73m2 CKD-EPI Creatinine Equation (2020) Performed By: #### L 500.4050 ####[facility] [address] [place], [address] Globulin (S) [Mass/Vol] 2.6 g/dL Normal 2.2-4.2 [facility] Comment on above: Performed By: #### L 500.4050 ####[facility] [address] [place], [address] Glucose [Mass/Vol] 199 mg/dL High 70-99 [facility] Comment on above: Performed By: #### L 500.4050 ####[facility] [address] [place], [address] Potassium [Moles/Vol] 3.1 mmol/L Low 3.3-5.1 [facility] Comment on above: Performed By: #### L 500.4050 ####[facility] [address] [place], [address] Sodium [Moles/Vol] 133 mmol/L Normal 133-145 [facility] Comment on above: Performed By: #### L 500.4050 ####[facility] [address] [place], [address] T PROT 4.7 g/dL Low 5.9-8.4 [facility] Comment on above: Performed By: #### L 500.4050 ####[facility] [address] [place], [address] Urea nitrogen [Mass/Vol] 13 mg/dL Normal 4-19 [facility] Comment on above: Performed By: #### L 500.4050 ####[facility] [address] [place], [place], [address] Glomerular filtration rate ( GFR) estimation/1.73 sq m using serum, plasma, or whole bOrdered By: Anurag Irene on 01-21-2025 GFR/1.73 sq M.predicted among non-blacks MDRD (S/P/Bld) [Vol rate/Area] 100 mL/min/{1.73_m2} >60 [facility] Glucose measurement at [facility] deOrdered By: Anurag Irene on 01-21-2025 Glucose [Mass/Vol] 151 mg/dL High 74-106 [facility] No Panel InformationOrdered By: Anurag Irene on 01-21-2025 48 U/L High <38 [facility] Potassium measurement (mass/ volume)Ordered By: Anurag Irene on 01-21-2025 Potassium (Unsp spec) [Mass/Vol] 3.1 mmol/L Low 3.3-5.1 [facility] Serum creatinine measurement (mass/volume)Ordered By: Anurag Irene on 01-21-2025 Creatinine [Mass/Vol] 0.86 mg/dL 0.70-1.20 [facility] Serum globulin measurementOr dered By: Anurag Irene on 01-21-2025 Globulin (S) [Mass/Vol] 2.6 g/dL 2.2-4.2 [facility] Serum glucose measurement (m ass/volume)Ordered By: Anurag Irene on 01-21-2025 Glucose [Mass/Vol] 199 mg/dL High 70-99 [facility] Serum or plasma alanine thomas otransferase (ALT) measurementOrdered By: Anurag Irene on 01-21-2025 ALT [Catalytic activity/Vol] 28 U/L <47 [facility] Serum or plasma albumin tyson urement (mass/volume)Ordered By: Anurag Irene on 01-21-2025 Albumin [Mass/Vol] 2.1 g/dL Low 3.5-5.0 [facility] Serum or plasma albumin/glob ulin mass ratioOrdered By: Anurag Irene on 01-21-2025 Albumin/Globulin [Mass ratio] 0.8 {ratio} Low 0.9-2.4 [facility] Serum or plasma alkaline kendrick sphatase measurementOrdered By: Anurag Irene on 01-21-2025 ALP [Catalytic activity/Vol] 204 U/L High 40-129 [facility] Serum or plasma calcium tyson urement (mass/volume)Ordered By: Anurag Irene on 01-21-2025 Calcium [Mass/Vol] 8.1 mg/dL 7.6-11.0 [facility] Serum or plasma urea nitroge n measurement (mass/volume)Ordered By: Anurag Irene on 01-21-2025 Urea nitrogen [Mass/Vol] 13 mg/dL 4-19 [facility] Sodium levelOrdered By: Marni Irene on 01-21-2025 Sodium [Moles/Vol] 133 mmol/L 133-145 [facility] Total proteinOrdered By: [place] Irene on 01-21-2025 Protein [Mass/Vol] 4.7 g/dL Low 5.9-8.4 [facility] Absolute lymphocyte countOrd ered By: Anurag Irene on 01-20-2025 Lymphocytes Auto (Unsp spec) [#/Vol] 1.10 10*3/uL 0.83-4.51 [facility] Automated lymphocyte count a s percentage of total leukocytesOrdered By: Anurag Irene on 01-20-2025 Lymphocytes/100 WBC Auto (Unsp spec) 16.3 % Low 19-41 [facility] Basophil percentageOrdered B y: Anurag Irene on 01-20-2025 Basophils/100 WBC (Bld) 0.6 % 0-1 [facility] Bedside Glucoseon 01-20-2025 FINGERSTICK GLU 206 mg/dL High 74-106 [facility] Comment on above: Result Comment: BRISA GEMENT OF PATIENT CARE PER NURSING PROTOCOL Performed By: #### L 501.080 ####[facility] [address] [facility] [address] FINGERSTICK GLU 188 mg/dL High [address] [place] [address] Comment on above: Result Comment: BRISA GEMENT OF PATIENT CARE PER NURSING PROTOCOL Performed By: #### L 501.080 ####[facility] [address] [facility] [address] FINGERSTICK GLU 167 mg/dL High [address] [place] [address] Comment on above: Result Comment: BRISA GEMENT OF PATIENT CARE PER NURSING PROTOCOL Performed By: #### L 501.080 ####[facility] [address] [facility] [address] FINGERSTICK GLU 164 mg/dL High [address] [place] [address] Comment on above: Result Comment: BRISA GEMENT OF PATIENT CARE PER NURSING PROTOCOL Performed By: #### L 501.080 ####[facility] [address] [facility] [address] Blood manual differential co mment interpretation (narrative result)Ordered By: Anurag Irene on 01-20-2025 Manual differential comment Marco Antonio (Bld) [Interp] SCANNED [facility] CBC W/Diff, Automatedon 01-02 PLT EST MOD DEC Normal ADEQ [facility] Comment on above: Performed By: #### L 100.0100 ####[facility] [address] [place], [address] SMEAR COMMENT SCANNED Normal [facility] Comment on above: Performed By: #### L 100.0100 ####[facility] [address] [place], [address] Comprehensive Metabolic Prof ilon 01-20-2025 Albumin [Mass/Vol] 2.0 g/dL Low 3.5-5.0 [facility] Comment on above: Performed By: #### L 500.4050 ####[facility] [address] [place], [address] Albumin/Globulin [Mass ratio] 0.7 {ratio} Low 0.9-2.4 [facility] Comment on above: Performed By: #### L 500.4050 ####[facility] [address] [place], [address] ALK PHOS 211 U/L High 40-129 [facility] Comment on above: Performed By: #### L 500.4050 ####[facility] [address] [place], [address] ALT [Catalytic activity/Vol] 32 U/L Normal <=46 [facility] Comment on above: Performed By: #### L 500.4050 ####[facility] [address] [place], [address] AST [Catalytic activity/Vol] 45 U/L High <=37 [facility] Comment on above: Performed By: #### L 500.4050 ####[facility] [address] [place], [address] Bilirubin [Mass/Vol] 1.61 mg/dL High 0.00-1.30 [facility] Comment on above: Performed By: #### L 500.4050 ####[facility] [address] [place], [address] BUN/CRE 13.4 RATIO Normal 10-20 [facility] Comment on above: Performed By: #### L 500.4050 ####[facility] [address] [place], [address] Calcium [Mass/Vol] 8.1 mg/dL Normal 7.6-11.0 [facility] Comment on above: Performed By: #### L 500.4050 ####[facility] [address] [place], [address] Chloride [Moles/Vol] 95 mmol/L Low 98-108 [facility] Comment on above: Performed By: #### L 500.4050 ####[facility] [address] [place], [address] CO2 [Moles/Vol] 30.3 mmol/L Normal 21.0-32.0 [facility] Comment on above: Performed By: #### L 500.4050 ####[facility] [address] [place], [address] Creatinine [Mass/Vol] 0.87 mg/dL Normal 0.70-1.20 [facility] Comment on above: Performed By: #### L 500.4050 ####[facility] [address] [place], [address] ECRCL 112.61 ml/min Normal 50-250 [facility] Comment on above: Performed By: #### L 500.4050 ####[facility] [address] [place], [address] GAP 7 Normal 5-15 [facility] Comment on above: Performed By: #### L 500.4050 ####[facility] [address] [place], [address] GFR/1.73 sq M.predicted among non-blacks MDRD (S/P/Bld) [Vol rate/Area] 100 mL/min/{1.73_m2} Normal >60 [facility] Comment on above: Result Comment: mL/m in/1.73m2 CKD-EPI Creatinine Equation (2020) Performed By: #### L 500.4050 ####[facility] [address] [place], [address] Globulin (S) [Mass/Vol] 2.9 g/dL Normal 2.2-4.2 [facility] Comment on above: Performed By: #### L 500.4050 ####[facility] [address] [place], [address] Glucose [Mass/Vol] 195 mg/dL High 70-99 [facility] Comment on above: Performed By: #### L 500.4050 ####[facility] [address] [place], [address] Potassium [Moles/Vol] 3.1 mmol/L Low 3.3-5.1 [facility] Comment on above: Performed By: #### L 500.4050 ####[facility] [address] [place], [address] Sodium [Moles/Vol] 133 mmol/L Normal 133-145 [facility] Comment on above: Performed By: #### L 500.4050 ####[facility] [address] [place], [address] T PROT 4.9 g/dL Low 5.9-8.4 [facility] Comment on above: Performed By: #### L 500.4050 ####[facility] [address] [place], [address] Urea nitrogen [Mass/Vol] 12 mg/dL Normal 4-19 [facility] Comment on above: Performed By: #### L 500.4050 ####[facility] [address] [place], [address] Eosinophil percentageOrdered By: Anurag Irene on 01-20-2025 Eosinophils/100 WBC (Bld) 6.5 % High 0-5 [facility] Erythrocyte distribution wid th ratioOrdered By: Anurag Irene on 01-20-2025 Erythrocyte distribution width (RBC) [Ratio] 18.3 % High 11.6-14.6 [facility] Erythrocyte distribution wid th standard deviationOrdered By: Anurag Irene on 01-20-2025 Erythrocyte distribution width (RBC) [Ratio] 58.5 fl High 35.1-43.9 [facility] Hematocrit Auto (Bld) [Volum e fraction]Ordered By: Anurag Irene on 01-20-2025 Hematocrit (Bld) [Volume fraction] 22.9 % Low 40-54 [facility] Hemoglobin measurementOrdere d By: Anurag Irene on 01-20-2025 Hemoglobin (Bld) [Mass/Vol] 7.7 g/dL Low 13.0-16.5 [facility] Immature granulocytes/100 WB C Auto (Bld)Ordered By: Anurag Irene on 01-20-2025 Immature granulocytes/100 WBC (Bld) 1.200 % High 0.0-0.9 [facility] MCV (mean corpuscular volume ) determinationOrdered By: Anurag Irene on 01-20-2025 MCV (RBC) [Entitic vol] 88.1 fL 80-94 [facility] Mean corpuscular hemoglobin (MCH) determinationOrdered By: Anurag Irene on 01-20-2025 MCH (RBC) [Entitic mass] 29.6 pg 27.0-32.0 [facility] Monocyte percentageOrdered B y: Anurag Irene on 01-20-2025 Monocytes/100 WBC (Bld) 11.9 % High 0-10 [facility] Neutrophil percentageOrdered By: Anurag Irene on 01-20-2025 Neutrophils/100 WBC (Bld) 63.5 % 47-70 [facility] Platelet countOrdered By: Francois Irene on 01-20-2025 Platelets (Bld) [#/Vol] 93 10*3/uL Low 150-450 [facility] Platelet estimateOrdered By: Anurag Irene on 01-20-2025 Platelets LM Ql (Bld) MOD DEC ADEQ [facility] RBC Auto (Bld) [#/Vol]Ordere d By: Anurag Irene on 01-20-2025 RBC (Bld) [#/Vol] 2.60 10*6/uL Low 4.6-6.2 [facility] White blood cell (WBC) count Ordered By: Anurag Irene on 01-20-2025 WBC (Bld) [#/Vol] 6.8 10*3/uL 4.4-11.0 [facility] Activated partial thrombopla stin time (aPTT) in platelet poor plasma by coagulation aOrdered By: Rosendo Renee on 01-19-2025 aPTT Coag (PPP) [Time] 46.6 s High 24.1-36.2 [facility] Albumin, Serumon 01-19-2025 Albumin [Mass/Vol] 2.2 g/dL Low 3.5-5.0 [facility] Comment on above: Performed By: #### L 300.3900, L501.1800, L501.2300, L300.4310, L501.5200 ####[facility] [address] [place], [address] Bedside Glucoseon 01-19-2025 FINGERSTICK GLU 225 mg/dL High 74-106 [facility] Comment on above: Result Comment: BRISA GEMENT OF PATIENT CARE PER NURSING PROTOCOL Performed By: #### L 501.080 ####[facility] [address] [place], [address] FINGERSTICK GLU 268 mg/dL High 74-106 [facility] Comment on above: Result Comment: BRISA GEMENT OF PATIENT CARE PER NURSING PROTOCOL Performed By: #### L 501.080 ####[facility] [address] [place], [address] FINGERSTICK GLU 187 mg/dL High 74-106 [facility] Comment on above: Result Comment: BRISA GEMENT OF PATIENT CARE PER NURSING PROTOCOL Performed By: #### L 501.080 ####[facility] [address] [place], [address] FINGERSTICK GLU 198 mg/dL High 74-106 [facility] Comment on above: Result Comment: BRISA GEMENT OF PATIENT CARE PER NURSING PROTOCOL Performed By: #### L 501.080 ####[facility] [address] [place], [address] Bilirubin directOrdered By: Anurag Irene on 01-19-2025 Bilirubin.direct [Mass/Vol] 1.00 mg/dL High 0.00-0.30 [facility] Bilirubin, Directon 01-20-20 25 Bilirubin.direct [Mass/Vol] 1.00 mg/dL High 0.00-0.30 [facility] Comment on above: Performed By: #### L 501.4700, L100.0100, L500.4050 ####[facility] [address] [place], [address] Body Fluid Culton 01-19-2025 BFC Culture exhibits no growth. Normal [facility] Comment on above: Performed By: #### L 200.0200, M100.2000, M100.2900, M100.4001 ####[facility] [address] [place], [address] CBC W/Diff, Automatedon 01-02 Absolute Lymph 1.08 X10 3/uL Normal 0.83-4.51 [facility] Comment on above: Performed By: #### L 501.4700, L100.0100, L500.4050 ####[facility] [address] [place], [address] Absolute Neut 5.4 X10 3/uL Normal 2.0-7.7 [facility] Comment on above: Performed By: #### L 501.4700, L100.0100, L500.4050 ####[facility] [address] [place], [address] Basophils/100 WBC (Bld) 0.5 % Normal 0-1 [facility] Comment on above: Performed By: #### L 501.4700, L100.0100, L500.4050 ####[facility] [address] [place], [address] Eosinophils/100 WBC (Bld) 5.8 % High 0-5 [facility] Comment on above: Performed By: #### L 501.4700, L100.0100, L500.4050 ####[facility] [address] [place], [address] Erythrocyte distribution width (RBC) [Ratio] 18.6 % High 11.6-14.6 [facility] Comment on above: Performed By: #### L 501.4700, L100.0100, L500.4050 ####[facility] [address] [place], [address] Hematocrit (Bld) [Volume fraction] 22.3 % Low 40-54 [facility] Comment on above: Performed By: #### L 501.4700, L100.0100, L500.4050 ####[facility] [address] [place], [address] Hemoglobin (Bld) [Mass/Vol] 7.6 g/dL Low 13.0-16.5 [facility] Comment on above: Performed By: #### L 501.4700, L100.0100, L500.4050 ####[facility] [address] [place], [address] IG% 1.400 High 0.0-0.9 [facility] Comment on above: Result Comment: IG% - Immature Granulocytes (promyelocytes, myelocytes andmetamyelocytes) > 1% indicates that a LEFT SHIFT is Present. Performed By: #### L 501.4700, L100.0100, L500.4050 ####[facility] [address] [place], [address] Lymphocytes/100 WBC (Bld) 13.6 % Low 19-41 [facility] Comment on above: Performed By: #### L 501.4700, L100.0100, L500.4050 ####[facility] [facility] [address] [place], [address] MCH (RBC) [Entitic mass] 30.3 pg Normal 27.0-32.0 [facility] Comment on above: Performed By: #### L 501.4700, L100.0100, L500.4050 ####[facility] [address] [place], [address] MCHC (RBC) [Mass/Vol] 34.1 g/dL Normal 32-36 [facility] Comment on above: Performed By: #### L 501.4700, L100.0100, L500.4050 ####[facility] [address] [place], [address] MCV (RBC) [Entitic vol] 88.8 fL Normal 80-94 [facility] Comment on above: Performed By: #### L 501.4700, L100.0100, L500.4050 ####[facility] [address] [place], [address] Monocytes/100 WBC (Bld) 11.0 % High 0-10 [facility] Comment on above: Performed By: #### L 501.4700, L100.0100, L500.4050 ####[facility] [address] [place], [address] Neutrophils/100 WBC (Bld) 67.7 % Normal 47-70 [facility] Comment on above: Performed By: #### L 501.4700, L100.0100, L500.4050 ####[facility] [address] [place], [address] Nucleated RBC (Bld) [#/Vol] 0 10*3/uL Normal 0-5 [facility] Comment on above: Performed By: #### L 501.4700, L100.0100, L500.4050 ####[facility] [address] [place], [address] Platelet mean volume (Bld) [Entitic vol] 11.1 fL Normal 6.2-12.0 [facility] Comment on above: Performed By: #### L 501.4700, L100.0100, L500.4050 ####[facility] [address] [place], [address] Platelets (Bld) [#/Vol] 107 10*3/uL Low 150-450 [facility] Comment on above: Performed By: #### L 501.4700, L100.0100, L500.4050 ####[facility] [address] [place], [address] RBC (Bld) [#/Vol] 2.51 10*6/uL Low 4.6-6.2 [facility] Comment on above: Performed By: #### L 501.4700, L100.0100, L500.4050 ####[facility] [address] [place], [address] RDW SD 59.0 fl High 35.1-43.9 [facility] Comment on above: Performed By: #### L 501.4700, L100.0100, L500.4050 ####[facility] [address] [place], [address] WBC (Bld) [#/Vol] 7.9 10*3/uL Normal 4.4-11.0 [facility] Comment on above: Performed By: #### L 501.4700, L100.0100, L500.4050 ####[facility] [address] [place], [address] Comprehensive Metabolic Prof kyen 01-19-2025 Albumin [Mass/Vol] 2.2 g/dL Low 3.5-5.0 [facility] Comment on above: Performed By: #### L 501.4700, L100.0100, L500.4050 ####[facility] [address] [place], [address] Albumin/Globulin [Mass ratio] 0.9 {ratio} Normal 0.9-2.4 [facility] Comment on above: Performed By: #### L 501.4700, L100.0100, L500.4050 ####[facility] [address] [place], [address] ALK PHOS 225 U/L High 40-129 [facility] Comment on above: Performed By: #### L 501.4700, L100.0100, L500.4050 ####[facility] [address] [place], [address] ALT [Catalytic activity/Vol] 34 U/L Normal <=46 [facility] Comment on above: Performed By: #### L 501.4700, L100.0100, L500.4050 ####[facility] [address] [place], [address] AST [Catalytic activity/Vol] 52 U/L High <=37 [facility] Comment on above: Performed By: #### L 501.4700, L100.0100, L500.4050 ####[facility] [address] [place], [address] Bilirubin [Mass/Vol] 1.70 mg/dL High 0.00-1.30 [facility] Comment on above: Performed By: #### L 501.4700, L100.0100, L500.4050 ####[facility] [address] [place], [address] BUN/CRE 10.4 RATIO Normal 10-20 [facility] Comment on above: Performed By: #### L 501.4700, L100.0100, L500.4050 ####[facility] [address] [place], [address] Calcium [Mass/Vol] 7.9 mg/dL Normal 7.6-11.0 [facility] Comment on above: Performed By: #### L 501.4700, L100.0100, L500.4050 ####[facility] [address] [place], [address] Chloride [Moles/Vol] 94 mmol/L Low 98-108 [facility] Comment on above: Performed By: #### L 501.4700, L100.0100, L500.4050 ####[facility] [address] [place], [address] CO2 [Moles/Vol] 30.7 mmol/L Normal 21.0-32.0 [facility] Comment on above: Performed By: #### L 501.4700, L100.0100, L500.4050 ####[facility] [address] [place], [address] Creatinine [Mass/Vol] 1.05 mg/dL Normal 0.70-1.20 [facility] Comment on above: Performed By: #### L 501.4700, L100.0100, L500.4050 ####[facility] [address] [place], [address] ECRCL 93.35 ml/min Normal 50-250 [facility] Comment on above: Performed By: #### L 501.4700, L100.0100, L500.4050 ####[facility] [address] [place], [address] GAP 7 Normal 5-15 [facility] Comment on above: Performed By: #### L 501.4700, L100.0100, L500.4050 ####[facility] [address] [place], [address] GFR/1.73 sq M.predicted among non-blacks MDRD (S/P/Bld) [Vol rate/Area] 82 mL/min/{1.73_m2} Normal >60 [facility] Comment on above: Result Comment: mL/m in/1.73m2 CKD-EPI Creatinine Equation (2020) Performed By: #### L 501.4700, L100.0100, L500.4050 ####[facility] [address] [place], [address] Globulin (S) [Mass/Vol] 2.6 g/dL Normal 2.2-4.2 [facility] Comment on above: Performed By: #### L 501.4700, L100.0100, L500.4050 ####[facility] [address] [place], [address] Glucose [Mass/Vol] 220 mg/dL High 70-99 [facility] Comment on above: Performed By: #### L 501.4700, L100.0100, L500.4050 ####[facility] [address] [place], [address] Potassium [Moles/Vol] 3.0 mmol/L Low 3.3-5.1 [facility] Comment on above: Performed By: #### L 501.4700, L100.0100, L500.4050 ####[facility] [address] [place], [address] Sodium [Moles/Vol] 132 mmol/L Low 133-145 [facility] Comment on above: Performed By: #### L 501.4700, L100.0100, L500.4050 ####[facility] [address] [place], [address] T PROT 4.8 g/dL Low 5.9-8.4 [facility] Comment on above: Performed By: #### L 501.4700, L100.0100, L500.4050 ####[facility] [address] [place], [address] Urea nitrogen [Mass/Vol] 11 mg/dL Normal 4-19 [facility] Comment on above: Performed By: #### L 501.4700, L100.0100, L500.4050 ####[facility] [address] [place], [address] Gram Stainon 01-19-2025 GS Centrifuged Specimen ? Culture performed on centrifuged specimen Gram Stain No organisms seen No cells seen Normal [facility] Comment on above: Performed By: #### L 200.0200, M100.2000, M100.2900, M100.4001 ####[facility] [address] [place], [address] Liver Profileon 01-19-2025 ALB Normal 3.5-5.0 [facility] Comment on above: Result Comment: MOVE D TO DIFFERENT REQ- SEE C50 Performed By: #### L 500.3400 ####[facility] [address] [place], [address] ALK PHOS Normal 40-129 [facility] Comment on above: Result Comment: MOVE D TO DIFFERENT REQ- SEE C50 Performed By: #### L 500.3400 ####[facility] [address] [place], [address] ALT Normal <=46 [facility] Comment on above: Result Comment: MOVE D TO DIFFERENT REQ- SEE C50 Performed By: #### L 500.3400 ####[facility] [address] [place], [address] AST Normal <=37 [facility] Comment on above: Result Comment: MOVE D TO DIFFERENT REQ- SEE C50 Performed By: #### L 500.3400 ####[facility] [address] [place], [address] D BILI Normal 0.00-0.30 [facility] Comment on above: Result Comment: MOVE D TO DIFFERENT REQ- SEE C50 Performed By: #### L 500.3400 ####[facility] [address] [place], [address] T BILI Normal 0.00-1.30 [facility] Comment on above: Result Comment: MOVE D TO DIFFERENT REQ- SEE C50 Performed By: #### L 500.3400 ####[facility] [address] [place], [address] T PROT Normal 5.9-8.4 [facility] Comment on above: Result Comment: MOVE D TO DIFFERENT REQ- SEE C50 Performed By: #### L 500.3400 ####[facility] [address] [place], [address] Magnesiumon 01-19-2025 Magnesium [Mass/Vol] 1.7 mg/dL Normal 1.5-2.2 [facility] Comment on above: Performed By: #### L 300.3900, L501.1800, L501.2300, L300.4310, L501.5200 ####[facility] [address] [place], [address] Magnesium measurement (mass/ volume)Ordered By: Rosendo Renee on 01-19-2025 Magnesium (Unsp spec) [Mass/Vol] 1.7 mg/dL 1.5-2.2 [facility] Partial Thromboplast Timeon 01-19-2025 aPTT Coag (Bld) [Time] 46.6 s High 24.1-36.2 [facility] Comment on above: Performed By: #### L 300.3900, L501.1800, L501.2300, L300.4310, L501.5200 ####[facility] [address] [place], [address] Phosphoruson 01-19-2025 Phosphate [Mass/Vol] 3.5 mg/dL Normal 2.7-4.5 [facility] Comment on above: Performed By: #### L 300.3900, L501.1800, L501.2300, L300.4310, L501.5200 ####[facility] [address] [place], [address] Prothrombin Time w/INRon INR Coag (PPP) [Relative time] 2.0 {INR} Normal [facility] Comment on above: Performed By: #### L 300.3900, L501.1800, L501.2300, L300.4310, L501.5200 ####[facility] [address] [place], [address] PT Coag (PPP) [Time] 22.8 s High 11.7-14.9 [facility] Comment on above: Performed By: #### L 300.3900, L501.1800, L501.2300, L300.4310, L501.5200 ####[facility] [address] [place], [address] Prothrombin timeOrdered By: Rosendo Renee on 01-19-2025 PT Coag (PPP) [Time] 22.8 s High 11.7-14.9 [facility] Abdomen Limitedon 01-18-2025 Abdomen Limited Normal [facility] Basic Metabolic Profile (BMP )on 01-18-2025 BUN/CRE 9.8 RATIO Low 10-20 [facility] Comment on above: Performed By: #### L 500.2500 ####[facility] [address] [place], [address] Calcium [Mass/Vol] 7.7 mg/dL Normal 7.6-11.0 [facility] Comment on above: Performed By: #### L 500.2500 ####[facility] [address] [place], [address] Chloride [Moles/Vol] 92 mmol/L Low 98-108 [facility] Comment on above: Performed By: #### L 500.2500 ####[facility] [address] [place], [address] CO2 [Moles/Vol] 31.5 mmol/L Normal 21.0-32.0 [facility] Comment on above: Performed By: #### L 500.2500 ####[facility] [address] [place], [address] Creatinine [Mass/Vol] 0.85 mg/dL Normal 0.70-1.20 [facility] Comment on above: Performed By: #### L 500.2500 ####[facility] [address] [place], [address] ECRCL 116.49 ml/min Normal 50-250 [facility] Comment on above: Performed By: #### L 500.2500 ####[facility] [address] [place], [address] GAP 8 Normal 5-15 [facility] Comment on above: Performed By: #### L 500.2500 ####[facility] [address] [place], [address] GFR/1.73 sq M.predicted among non-blacks MDRD (S/P/Bld) [Vol rate/Area] 101 mL/min/{1.73_m2} Normal >60 [facility] Comment on above: Result Comment: mL/m in/1.73m2 CKD-EPI Creatinine Equation (2020) Performed By: #### L 500.2500 ####[facility] [address] [place], [address] Glucose [Mass/Vol] 228 mg/dL High 70-99 [facility] Comment on above: Performed By: #### L 500.2500 ####[facility] [address] [place], [address] Potassium [Moles/Vol] 2.8 mmol/L Low 3.3-5.1 [facility] Comment on above: Performed By: #### L 500.2500 ####[facility] [address] [place], [address] Sodium [Moles/Vol] 132 mmol/L Low 133-145 [facility] Comment on above: Performed By: #### L 500.2500 ####[facility] [address] [place], [address] Urea nitrogen [Mass/Vol] 8 mg/dL Normal 4-19 [facility] Comment on above: Performed By: #### L 500.2500 ####[facility] [address] [place], [address] Bedside Glucoseon 01-18-2025 FINGERSTICK GLU 250 mg/dL High 74-106 [facility] Comment on above: Result Comment: BRISA GEMENT OF PATIENT CARE PER NURSING PROTOCOL Performed By: #### L 501.080 ####[facility] [address] [place], [address] FINGERSTICK GLU 158 mg/dL High 74-106 [facility] Comment on above: Result Comment: BRISA GEMENT OF PATIENT CARE PER NURSING PROTOCOL Performed By: #### L 501.080 ####[facility] [address] [place], [address] FINGERSTICK GLU 142 mg/dL High 74-106 [facility] Comment on above: Result Comment: BRISA GEMENT OF PATIENT CARE PER NURSING PROTOCOL Performed By: #### L 501.080 ####[facility] [address] [place], [place], [address] FINGERSTICK GLU 171 mg/dL High 74-106 [facility] Comment on above: Result Comment: BRISA MOROCHO OF PATIENT CARE PER NURSING PROTOCOL Performed By: #### L 501.080 ####[facility] [address] [place], [place], [address] Body fluid appearance (nomin al result)Ordered By: Anurag Irene on 01-18-2025 Appearance (Body fld) CLEAR [facility] Body fluid color determinati onOrdered By: Anurag Irene on 01-18-2025 Color (Body fld) LT YEL [facility] Body fluid leukocytes count (number/volume)Ordered By: Anurag Irene on 01-18-2025 WBC (Body fld) [#/Vol] 0.143 10*3/uL [facility] Body fluid lymphocytes/100 l eukocytesOrdered By: Anurag Irene on 01-18-2025 Lymphocytes/100 WBC (Body fld) 24 % [facility] Body fluid macrophage countO rdered By: Anurag Irene on 01-18-2025 Macrophages (Body fld) [#/Vol] 46 % [facility] Body fluid mononuclear cell percentageOrdered By: Anurag Irene on 01-18-2025 Mononuclear cells/100 WBC (Body fld) 75.6 % [facility] Body fluid other cell count as percentage of leukocytesOrdered By: Anurag Irene on 01-18-2025 Other cells/100 WBC (Body fld) 7 % [facility] Body fluid protein measureme nt (mass/volume)Ordered By: Anurag Irene on 01-18-2025 Protein (Body fld) [Mass/Vol] 0.3 g/dL Not Establ. [facility] Body fluid segmented neutrop hils count (number/volume)Ordered By: Anurag Irene on 01-18-2025 Segmented neutrophils (Body fld) [#/Vol] 20 % [facility] Body fluid total cell countO rdered By: Anurag Irene on 01-18-2025 Cells Counted Total (Body fld) [#] 0.172 10^3/ul [facility] CBC W/Diff, Automatedon 06-1 -2024 Absolute Lymph 1.13 X10 3/uL Normal 0.83-4.51 [facility] Comment on above: Performed By: #### L 100.0100 ####[facility] [address] [place], [address] Absolute Neut 5.5 X10 3/uL Normal 2.0-7.7 [facility] Comment on above: Performed By: #### L 100.0100 ####[facility] [address] [place], [address] Basophils/100 WBC (Bld) 0.6 % Normal 0-1 [facility] Comment on above: Performed By: #### L 100.0100 ####[facility] [address] [place], [address] Eosinophils/100 WBC (Bld) 6.1 % High 0-5 [facility] Comment on above: Performed By: #### L 100.0100 ####[facility] [address] [place], [address] Erythrocyte distribution width (RBC) [Ratio] 18.7 % High 11.6-14.6 [facility] Comment on above: Performed By: #### L 100.0100 ####[facility] [address] [place], [address] Hematocrit (Bld) [Volume fraction] 22.6 % Low 40-54 [facility] Comment on above: Performed By: #### L 100.0100 ####[facility] [address] [place], [address] Hemoglobin (Bld) [Mass/Vol] 7.7 g/dL Low 13.0-16.5 [facility] Comment on above: Performed By: #### L 100.0100 ####[facility] [address] [place], [address] IG% 1.200 High 0.0-0.9 [facility] Comment on above: Result Comment: IG% - Immature Granulocytes (promyelocytes, myelocytes andmetamyelocytes) > 1% indicates that a LEFT SHIFT is Present. Performed By: #### L 100.0100 ####[facility] [address] [place], [address] Lymphocytes/100 WBC (Bld) 14.0 % Low 19-41 [facility] Comment on above: Performed By: #### L 100.0100 ####[facility] [address] [place], [address] MCH (RBC) [Entitic mass] 30.1 pg Normal 27.0-32.0 [facility] Comment on above: Performed By: #### L 100.0100 ####[facility] [address] [place], [address] MCHC (RBC) [Mass/Vol] 34.1 g/dL Normal 32-36 [facility] Comment on above: Performed By: #### L 100.0100 ####[facility] [address] [place], [address] MCV (RBC) [Entitic vol] 88.3 fL Normal 80-94 [facility] Comment on above: Performed By: #### L 100.0100 ####[facility] [address] [place], [address] Monocytes/100 WBC (Bld) 10.0 % Normal 0-10 [facility] Comment on above: Performed By: #### L 100.0100 ####[facility] [address] [place], [address] Neutrophils/100 WBC (Bld) 68.1 % Normal 47-70 [facility] Comment on above: Performed By: #### L 100.0100 ####[facility] [address] [place], [address] Nucleated RBC (Bld) [#/Vol] 0 10*3/uL Normal 0-5 [facility] Comment on above: Performed By: #### L 100.0100 ####[facility] [address] [place], [address] Platelet mean volume (Bld) [Entitic vol] 10.5 fL Normal 6.2-12.0 [facility] Comment on above: Performed By: #### L 100.0100 ####[facility] [address] [place], [address] Platelets (Bld) [#/Vol] 107 10*3/uL Low 150-450 [facility] Comment on above: Performed By: #### L 100.0100 ####[facility] [address] [place], [address] RBC (Bld) [#/Vol] 2.56 10*6/uL Low 4.6-6.2 [facility] Comment on above: Performed By: #### L 100.0100 ####[facility] [address] [place], [address] RDW SD 58.9 fl High 35.1-43.9 [facility] Comment on above: Performed By: #### L 100.0100 ####[facility] [address] [place], [address] WBC (Bld) [#/Vol] 8.1 10*3/uL Normal 4.4-11.0 [facility] Comment on above: Performed By: #### L 100.0100 ####[facility] [address] [place], [address] Glucose, Body Fluidon 2024 GLUC, BODY FLD 154 mg/dL Normal Not Establ. [facility] Comment on above: Performed By: #### L 503.0100, L503.0300 ####[facility] [address] [place], [address] Gram stainOrdered By: Anuradha Irene on 01-18-2025 Microscopic observation Gram stain Nom (Unsp spec) [facility] Magnesiumon 01-18-2025 Magnesium [Mass/Vol] 1.6 mg/dL Normal 1.5-2.2 [facility] Comment on above: Performed By: #### L 501.2300, L501.5200 ####[facility] [address] [place], [address] Monocyte detectionOrdered By : Anurag Irene on 01-18-2025 Monocytes/100 WBC (Bld) 3 % [facility] No Panel InformationOrdered By: Anurag Irene on 01-18-2025 218 /mm3 [facility] SEE COMMENT [facility] Paracentesis with USon 01-18 Paracentesis with US Normal [facility] Pathologist interpretation o f Body fluid testsOrdered By: Anurag Irene on 01-18-2025 Pathologist interpretation (Body fld) [Interp] Reviewed [facility] Phosphoruson 01-18-2025 Phosphate [Mass/Vol] 3.7 mg/dL Normal 2.7-4.5 [facility] Comment on above: Performed By: #### L 501.2300, L501.5200 ####[facility] [address] [place], [address] Protein, Body Fluidon 2024 Protein [Mass/Vol] 0.3 g/dL Normal Not Establ. [facility] Comment on above: Performed By: #### L 503.0100, L503.0300 ####[facility] [address] [place], [address] Prothrombin Time w/INRon INR Coag (PPP) [Relative time] 2.0 {INR} Normal [facility] Comment on above: Performed By: #### L 300.3900 ####[facility] [address] [place], [address] PT Coag (PPP) [Time] 22.9 s High 11.7-14.9 [facility] Comment on above: Performed By: #### L 300.3900 ####[facility] [address] [place], [address] Specimen source identificati on of body fluidOrdered By: Anurag Irene on 01-18-2025 Specimen source Nom (Body fld) PERITONEAL FLUID [facility] Stool Occult Blood iFOBon STOB Negative Normal [facility] Comment on above: Performed By: #### M 100.7900 ####[facility] [address] [place], [address] Stool gastrointestinal hemog lobin detection by immunologic methodOrdered By: Cielo Tovar on 01-18-2025 Lower GI hemoglobin IA Ql (Stl) [facility] Bedside Glucoseon 01-17-2025 FINGERSTICK GLU 180 mg/dL High [address] [place] [address] Comment on above: Result Comment: BRISA GEMENT OF PATIENT CARE PER NURSING PROTOCOL Performed By: #### L 501.080 ####[facility] [address] [place], [address] FINGERSTICK GLU 236 mg/dL High [address] [place] [address] Comment on above: Result Comment: BRISA GEMENT OF PATIENT CARE PER NURSING PROTOCOL Performed By: #### L 501.080 ####[facility] [address] [place], [address] FINGERSTICK GLU 141 mg/dL High [address] [place] [address] Comment on above: Result Comment: BRISA GEMENT OF PATIENT CARE PER NURSING PROTOCOL Performed By: #### L 501.080 ####[facility] [address] [place], [address] FINGERSTICK GLU 173 mg/dL High [address] [place] [address] Comment on above: Result Comment: BRISA MOROCHO OF PATIENT CARE PER NURSING PROTOCOL Performed By: #### L 501.080 ####[facility] [address] [place], [address] CBC W/Diff, Automatedon -08 09-2024 Absolute Lymph 1.09 X10 3/uL Normal 0.83-4.51 [facility] Comment on above: Performed By: #### L 100.0100 ####[facility] [address] [place], [address] Absolute Neut 5.7 X10 3/uL Normal 2.0-7.7 [facility] Comment on above: Performed By: #### L 100.0100 ####[facility] [address] [place], [address] Basophils/100 WBC (Bld) 0.5 % Normal 0-1 [facility] Comment on above: Performed By: #### L 100.0100 ####[facility] [address] [place], [address] Eosinophils/100 WBC (Bld) 6.8 % High 0-5 [facility] Comment on above: Performed By: #### L 100.0100 ####[facility] [address] [place], [address] Erythrocyte distribution width (RBC) [Ratio] 18.8 % High 11.6-14.6 [facility] Comment on above: Performed By: #### L 100.0100 ####[facility] [address] [place], [address] Hematocrit (Bld) [Volume fraction] 22.2 % Low 40-54 [facility] Comment on above: Performed By: #### L 100.0100 ####[facility] [address] [place], [address] Hemoglobin (Bld) [Mass/Vol] 7.5 g/dL Low 13.0-16.5 [facility] Comment on above: Performed By: #### L 100.0100 ####[facility] [address] [place], [address] IG% 1.100 High 0.0-0.9 [facility] Comment on above: Result Comment: IG% - Immature Granulocytes (promyelocytes, myelocytes andmetamyelocytes) > 1% indicates that a LEFT SHIFT is Present. Performed By: #### L 100.0100 ####[facility] [address] [place], [address] Lymphocytes/100 WBC (Bld) 12.9 % Low 19-41 [facility] Comment on above: Performed By: #### L 100.0100 ####[facility] [address] [place], [address] MCH (RBC) [Entitic mass] 30.0 pg Normal 27.0-32.0 [facility] Comment on above: Performed By: #### L 100.0100 ####[facility] [address] [place], [address] MCHC (RBC) [Mass/Vol] 33.8 g/dL Normal 32-36 [facility] Comment on above: Performed By: #### L 100.0100 ####[facility] [address] [place], [address] MCV (RBC) [Entitic vol] 88.8 fL Normal 80-94 [facility] Comment on above: Performed By: #### L 100.0100 ####[facility] [address] [place], [address] Monocytes/100 WBC (Bld) 11.5 % High 0-10 [facility] Comment on above: Performed By: #### L 100.0100 ####[facility] [address] [place], [address] Neutrophils/100 WBC (Bld) 67.2 % Normal 47-70 [facility] Comment on above: Performed By: #### L 100.0100 ####[facility] [address] [place], [address] Nucleated RBC (Bld) [#/Vol] 0 10*3/uL Normal 0-5 [facility] Comment on above: Performed By: #### L 100.0100 ####[facility] [address] [place], [address] Platelet mean volume (Bld) [Entitic vol] 10.7 fL Normal 6.2-12.0 [facility] Comment on above: Performed By: #### L 100.0100 ####[facility] [address] [place], [address] Platelets (Bld) [#/Vol] 109 10*3/uL Low 150-450 [facility] Comment on above: Performed By: #### L 100.0100 ####[facility] [address] [place], [address] RBC (Bld) [#/Vol] 2.50 10*6/uL Low 4.6-6.2 [facility] Comment on above: Performed By: #### L 100.0100 ####[facility] [address] [place], [address] RDW SD 58.8 fl High 35.1-43.9 [facility] Comment on above: Performed By: #### L 100.0100 ####[facility] [address] [place], [address] WBC (Bld) [#/Vol] 8.4 10*3/uL Normal 4.4-11.0 [facility] Comment on above: Performed By: #### L 100.0100 ####[facility] [address] [place], [address] Bedside Glucoseon 01-16-2024 FINGERSTICK GLU 227 mg/dL High 74-106 [facility] Comment on above: Result Comment: BRISA GEMENT OF PATIENT CARE PER NURSING PROTOCOL Performed By: #### L 501.080 ####[facility] [address] [place], [address] FINGERSTICK GLU 202 mg/dL High 74-106 [facility] Comment on above: Result Comment: BRISA GEMENT OF PATIENT CARE PER NURSING PROTOCOL Performed By: #### L 501.080 ####[facility] [address] [place], [address] FINGERSTICK GLU 177 mg/dL High -106 [facility] Comment on above: Result Comment: BRISA GEMENT OF PATIENT CARE PER NURSING PROTOCOL Performed By: #### L 501.080 ####[facility] [address] [place], [address] FINGERSTICK GLU 173 mg/dL High -106 [facility] Comment on above: Result Comment: BRISA GEMENT OF PATIENT CARE PER NURSING PROTOCOL Performed By: #### L 501.080 ####[facility] [address] [place], [address] CBC W/Diff, Automatedon 06- Absolute Lymph 1.16 X10 3/uL Normal 0.83-4.51 [facility] Comment on above: Performed By: #### L 100.0100 ####[facility] [address] [place], [address] Absolute Neut 5.2 X10 3/uL Normal 2.0-7.7 [facility] Comment on above: Performed By: #### L 100.0100 ####[facility] [address] [place], [address] Basophils/100 WBC (Bld) 0.4 % Normal 0-1 [facility] Comment on above: Performed By: #### L 100.0100 ####[facility] [address] [place], [address] Eosinophils/100 WBC (Bld) 6.5 % High 0-5 [facility] Comment on above: Performed By: #### L 100.0100 ####[facility] [address] [place], [address] Erythrocyte distribution width (RBC) [Ratio] 18.5 % High 11.6-14.6 [facility] Comment on above: Performed By: #### L 100.0100 ####[facility] [address] [place], [address] Hematocrit (Bld) [Volume fraction] 22.8 % Low 40-54 [facility] Comment on above: Performed By: #### L 100.0100 ####[facility] [address] [place], [address] Hemoglobin (Bld) [Mass/Vol] 7.8 g/dL Low 13.0-16.5 [facility] Comment on above: Performed By: #### L 100.0100 ####[facility] [address] [place], [address] IG% 0.900 Normal 0.0-0.9 [facility] Comment on above: Result Comment: IG% - Immature Granulocytes (promyelocytes, myelocytes andmetamyelocytes) > 1% indicates that a LEFT SHIFT is Present. Performed By: #### L 100.0100 ####[facility] [address] [place], [address] Lymphocytes/100 WBC (Bld) 14.6 % Low 19-41 [facility] Comment on above: Performed By: #### L 100.0100 ####[facility] [address] [place], [address] MCH (RBC) [Entitic mass] 30.2 pg Normal 27.0-32.0 [facility] Comment on above: Performed By: #### L 100.0100 ####[facility] [address] [place], [address] MCHC (RBC) [Mass/Vol] 34.2 g/dL Normal 32-36 [facility] Comment on above: Performed By: #### L 100.0100 ####[facility] [address] [place], [address] MCV (RBC) [Entitic vol] 88.4 fL Normal 80-94 [facility] Comment on above: Performed By: #### L 100.0100 ####[facility] [address] [place], [address] Monocytes/100 WBC (Bld) 12.7 % High 0-10 [facility] Comment on above: Performed By: #### L 100.0100 ####[facility] [address] [place], [address] Neutrophils/100 WBC (Bld) 64.9 % Normal 47-70 [facility] Comment on above: Performed By: #### L 100.0100 ####[facility] [address] [place], [address] Nucleated RBC (Bld) [#/Vol] 0 10*3/uL Normal 0-5 [facility] Comment on above: Performed By: #### L 100.0100 ####[facility] [address] [place], [address] Platelet mean volume (Bld) [Entitic vol] 10.8 fL Normal 6.2-12.0 [facility] Comment on above: Performed By: #### L 100.0100 ####[facility] [address] [place], [address] Platelets (Bld) [#/Vol] 111 10*3/uL Low 150-450 [facility] Comment on above: Performed By: #### L 100.0100 ####[facility] [address] [place], [address] RBC (Bld) [#/Vol] 2.58 10*6/uL Low 4.6-6.2 [facility] Comment on above: Performed By: #### L 100.0100 ####[facility] [address] [place], [address] RDW SD 57.9 fl High 35.1-43.9 [facility] Comment on above: Performed By: #### L 100.0100 ####[facility] [address] [place], [address] WBC (Bld) [#/Vol] 7.9 10*3/uL Normal 4.4-11.0 [facility] Comment on above: Performed By: #### L 100.0100 ####[facility] [address] [place], [address] Comprehensive Metabolic Prof [facility] 01-16-2025 Albumin [Mass/Vol] 2.2 g/dL Low 3.5-5.0 [facility] Comment on above: Performed By: #### L 500.4050 ####[facility] [address] [place], [address] Albumin/Globulin [Mass ratio] 0.9 {ratio} Normal 0.9-2.4 [facility] Comment on above: Performed By: #### L 500.4050 ####[facility] [address] [place], [address] ALK PHOS 247 U/L High 40-129 [facility] Comment on above: Performed By: #### L 500.4050 ####[facility] [address] [place], [address] ALT [Catalytic activity/Vol] 49 U/L High <=46 [facility] Comment on above: Performed By: #### L 500.4050 ####[facility] [address] [place], [address] AST [Catalytic activity/Vol] 51 U/L High <=37 [facility] Comment on above: Performed By: #### L 500.4050 ####[facility] [address] [place], [address] Bilirubin [Mass/Vol] 1.89 mg/dL High 0.00-1.30 [facility] Comment on above: Performed By: #### L 500.4050 ####[facility] [address] [place], [address] BUN/CRE 7.1 RATIO Low 10-20 [facility] Comment on above: Performed By: #### L 500.4050 ####[facility] [address] [place], [address] Calcium [Mass/Vol] 7.8 mg/dL Normal 7.6-11.0 [facility] Comment on above: Performed By: #### L 500.4050 ####[facility] [address] [place], [address] Chloride [Moles/Vol] 93 mmol/L Low 98-108 [facility] Comment on above: Performed By: #### L 500.4050 ####[facility] [address] [place], [address] CO2 [Moles/Vol] 31.1 mmol/L Normal 21.0-32.0 [facility] Comment on above: Performed By: #### L 500.4050 ####[facility] [address] [place], [address] Creatinine [Mass/Vol] 0.80 mg/dL Normal 0.70-1.20 [facility] Comment on above: Performed By: #### L 500.4050 ####[facility] [address] [place], [address] ECRCL 118.59 ml/min Normal 50-250 [facility] Comment on above: Performed By: #### L 500.4050 ####[facility] [address] [place], [address] GAP 7 Normal 5-15 [facility] Comment on above: Performed By: #### L 500.4050 ####[facility] [address] [place], [address] GFR/1.73 sq M.predicted among non-blacks MDRD (S/P/Bld) [Vol rate/Area] 103 mL/min/{1.73_m2} Normal >60 [facility] Comment on above: Result Comment: mL/m in/1.73m2 CKD-EPI Creatinine Equation (2020) Performed By: #### L 500.4050 ####[facility] [address] [place], [address] Globulin (S) [Mass/Vol] 2.5 g/dL Normal 2.2-4.2 [facility] Comment on above: Performed By: #### L 500.4050 ####[facility] [address] [place], [address] Glucose [Mass/Vol] 174 mg/dL High 70-99 [facility] Comment on above: Performed By: #### L 500.4050 ####[facility] [address] [place], [address] Potassium [Moles/Vol] 3.3 mmol/L Normal 3.3-5.1 [facility] Comment on above: Performed By: #### L 500.4050 ####[facility] [address] [place], [address] Sodium [Moles/Vol] 132 mmol/L Low 133-145 [facility] Comment on above: Performed By: #### L 500.4050 ####[facility] [address] [place], [address] T PROT 4.8 g/dL Low 5.9-8.4 [facility] Comment on above: Performed By: #### L 500.4050 ####[facility] [address] [place], [address] Urea nitrogen [Mass/Vol] 6 mg/dL Normal 4-19 [facility] Comment on above: Performed By: #### L 500.4050 ####[facility] [address] [place], [address] Serum or plasma vancomycin m easurement (mass/volume)Ordered By: Cielo Tovar on 01-16-2025 Vancomycin [Mass/Vol] 7.7 ug/mL 0.0-15.0 [facility] Vancomycin, Random Levelon 0 01-16-2025 VANCO, RANDOM 7.7 ug/mL Normal 0.0-15.0 [facility] Comment on above: Result Comment: VANC OMYCIN STANDARD DRUG THERAPY: CRITICAL VALUE IS > 15.0 mg/LVANCOMYCIN HIGH INTENSITY THERAPY: CRITICAL VALUE IS > 20.0 mg/LPLEASE CONTACT PHARMACY SERVICES (#6834) FOR INTERPRETATIONOF RESULTS. THIS RESULT DOES NOT REPRESENT A PEAK OR TROUGHLEVEL FOR THIS DRUG. Performed By: #### L 501.8850 ####[facility] [address] [place], [address] Bedside Glucoseon 01-15-2025 FINGERSTICK GLU 237 mg/dL High 74-106 [facility] Comment on above: Result Comment: BRISA MOROCHO OF PATIENT CARE PER NURSING PROTOCOL Performed By: #### L 501.080 ####[facility] [address] [place], [address] FINGERSTICK GLU 240 mg/dL High 74-106 [facility] Comment on above: Result Comment: BRISA GEMENT OF PATIENT CARE PER NURSING PROTOCOL Performed By: #### L 501.080 ####[facility] [address] [place], [address] FINGERSTICK GLU 221 mg/dL High 74-106 [facility] Comment on above: Result Comment: BRISA GEMENT OF PATIENT CARE PER NURSING PROTOCOL Performed By: #### L 501.080 ####[facility] [address] [place], [address] FINGERSTICK GLU 167 mg/dL High 74-106 [facility] Comment on above: Result Comment: BRISA GEMENT OF PATIENT CARE PER NURSING PROTOCOL Performed By: #### L 501.080 ####[facility] [address] [place], [address] FINGERSTICK GLU 173 mg/dL High 74-106 [facility] Comment on above: Result Comment: BRISA GEMENT OF PATIENT CARE PER NURSING PROTOCOL Performed By: #### L 501.080 ####[facility] [address] [place], [address] CBC W/Diff, Automatedon - Absolute Lymph 1.06 X10 3/uL Normal 0.83-4.51 [facility] Comment on above: Performed By: #### L 100.0100, L500.4050 ####[facility] [address] [place], [address] Absolute Neut 5.3 X10 3/uL Normal 2.0-7.7 [facility] Comment on above: Performed By: #### L 100.0100, L500.4050 ####[facility] [address] [place], [address] Basophils/100 WBC (Bld) 0.5 % Normal 0-1 [facility] Comment on above: Performed By: #### L 100.0100, L500.4050 ####[facility] [address] [place], [address] Eosinophils/100 WBC (Bld) 6.1 % High 0-5 [facility] Comment on above: Performed By: #### L 100.0100, L500.4050 ####[facility] [address] [place], [address] Erythrocyte distribution width (RBC) [Ratio] 18.6 % High 11.6-14.6 [facility] Comment on above: Performed By: #### L 100.0100, L500.4050 ####[facility] [address] [place], [address] Hematocrit (Bld) [Volume fraction] 23.2 % Low 40-54 [facility] Comment on above: Performed By: #### L 100.0100, L500.4050 ####[facility] [address] [place], [address] Hemoglobin (Bld) [Mass/Vol] 7.9 g/dL Low 13.0-16.5 [facility] Comment on above: Performed By: #### L 100.0100, L500.4050 ####[facility] [address] [place], [address] IG% 1.000 High 0.0-0.9 [facility] Comment on above: Result Comment: IG% - Immature Granulocytes (promyelocytes, myelocytes andmetamyelocytes) > 1% indicates that a LEFT SHIFT is Present. Performed By: #### L 100.0100, L500.4050 ####[facility] [address] [place], [address] Lymphocytes/100 WBC (Bld) 13.2 % Low 19-41 [facility] Comment on above: Performed By: #### L 100.0100, L500.4050 ####[facility] [address] [place], [address] MCH (RBC) [Entitic mass] 29.8 pg Normal 27.0-32.0 [facility] Comment on above: Performed By: #### L 100.0100, L500.4050 ####[facility] [address] [place], [address] MCHC (RBC) [Mass/Vol] 34.1 g/dL Normal 32-36 [facility] Comment on above: Performed By: #### L 100.0100, L500.4050 ####[facility] [address] [place], [address] MCV (RBC) [Entitic vol] 87.5 fL Normal 80-94 [facility] Comment on above: Performed By: #### L 100.0100, L500.4050 ####[facility] [address] [place], [address] Monocytes/100 WBC (Bld) 13.6 % High 0-10 [facility] Comment on above: Performed By: #### L 100.0100, L500.4050 ####[facility] [address] [place], [address] Neutrophils/100 WBC (Bld) 65.6 % Normal 47-70 [facility] Comment on above: Performed By: #### L 100.0100, L500.4050 ####[facility] [address] [place], [address] Nucleated RBC (Bld) [#/Vol] 0 10*3/uL Normal 0-5 [facility] Comment on above: Performed By: #### L 100.0100, L500.4050 ####[facility] [address] [place], [address] Platelet mean volume (Bld) [Entitic vol] 11.0 fL Normal 6.2-12.0 [facility] Comment on above: Performed By: #### L 100.0100, L500.4050 ####[facility] [address] [place], [address] Platelets (Bld) [#/Vol] 118 10*3/uL Low 150-450 [facility] Comment on above: Performed By: #### L 100.0100, L500.4050 ####[facility] [address] [place], [address] RBC (Bld) [#/Vol] 2.65 10*6/uL Low 4.6-6.2 [facility] Comment on above: Performed By: #### L 100.0100, L500.4050 ####[facility] [address] [place], [address] RDW SD 58.1 fl High 35.1-43.9 [facility] Comment on above: Performed By: #### L 100.0100, L500.4050 ####[facility] [address] [place], [address] WBC (Bld) [#/Vol] 8.0 10*3/uL Normal 4.4-11.0 [facility] Comment on above: Performed By: #### L 100.0100, L500.4050 ####[facility] [address] [place], [address] Comprehensive Metabolic Prof [facility] 01-15-2025 Albumin/Globulin [Mass ratio] 0.8 {ratio} Low 0.9-2.4 [facility] Comment on above: Performed By: #### L 100.0100, L500.4050 ####[facility] [address] [place], [address] ALK PHOS 275 U/L High 40-129 [facility] Comment on above: Performed By: #### L 100.0100, L500.4050 ####[facility] [address] [place], [address] ALT [Catalytic activity/Vol] 56 U/L High <=46 [facility] Comment on above: Performed By: #### L 100.0100, L500.4050 ####[facility] [address] [place], [address] AST [Catalytic activity/Vol] 64 U/L High <=37 [facility] Comment on above: Performed By: #### L 100.0100, L500.4050 ####[facility] [address] [place], [address] Bilirubin [Mass/Vol] 2.06 mg/dL High 0.00-1.30 [facility] Comment on above: Performed By: #### L 100.0100, L500.4050 ####[facility] [address] [place], [address] Calcium [Mass/Vol] 7.8 mg/dL Normal 7.6-11.0 [facility] Comment on above: Performed By: #### L 100.0100, L500.4050 ####[facility] [address] [place], [address] Chloride [Moles/Vol] 94 mmol/L Low 98-108 [facility] Comment on above: Performed By: #### L 100.0100, L500.4050 ####[facility] [address] [place], [address] CO2 [Moles/Vol] 26.7 mmol/L Normal 21.0-32.0 [facility] Comment on above: Performed By: #### L 100.0100, L500.4050 ####[facility] [address] [place], [address] GAP 9 Normal 5-15 [facility] Comment on above: Performed By: #### L 100.0100, L500.4050 ####[facility] [address] [place], [address] Potassium [Moles/Vol] 3.2 mmol/L Low 3.3-5.1 [facility] Comment on above: Performed By: #### L 100.0100, L500.4050 ####[facility] [address] [place], [address] Sodium [Moles/Vol] 130 mmol/L Low 133-145 [facility] Comment on above: Performed By: #### L 100.0100, L500.4050 ####[facility] [address] [place], [address] Albumin [Mass/Vol] 2.2 g/dL Low 3.5-5.0 [facility] Comment on above: Performed By: #### L 100.0100, L500.4050 ####[facility] [address] [place], [address] BUN/CRE 6.0 RATIO Low 10-20 [facility] Comment on above: Performed By: #### L 100.0100, L500.4050 ####[facility] [address] [place], [address] Creatinine [Mass/Vol] 0.82 mg/dL Normal 0.70-1.20 [facility] Comment on above: Performed By: #### L 100.0100, L500.4050 ####[facility] [address] [place], [address] ECRCL 115.58 ml/min Normal 50-250 [facility] Comment on above: Performed By: #### L 100.0100, L500.4050 ####[facility] [address] [place], [address] GFR/1.73 sq M.predicted among non-blacks MDRD (S/P/Bld) [Vol rate/Area] 102 mL/min/{1.73_m2} Normal >60 [facility] Comment on above: Result Comment: mL/m in/1.73m2 CKD-EPI Creatinine Equation (2020) Performed By: #### L 100.0100, L500.4050 ####[facility] [address] [place], [address] Globulin (S) [Mass/Vol] 2.7 g/dL Normal 2.2-4.2 [facility] Comment on above: Performed By: #### L 100.0100, L500.4050 ####[facility] [address] [place], [address] Glucose [Mass/Vol] 178 mg/dL High 70-99 [facility] Comment on above: Performed By: #### L 100.0100, L500.4050 ####[facility] [address] [place], [address] T PROT 4.9 g/dL Low 5.9-8.4 [facility] Comment on above: Performed By: #### L 100.0100, L500.4050 ####[facility] [address] [place], [address] Urea nitrogen [Mass/Vol] 5 mg/dL Normal 4-19 [facility] Comment on above: Performed By: #### L 100.0100, L500.4050 ####[facility] [address] [place], [address] Vancomycin, Random Levelon 0 - VANCO, RANDOM 20.7 ug/mL High 0.0-15.0 [facility] Comment on above: Result Comment: VANC OMYCIN STANDARD DRUG THERAPY: CRITICAL VALUE IS > 15.0 mg/LVANCOMYCIN HIGH INTENSITY THERAPY: CRITICAL VALUE IS > 20.0 mg/LPLEASE CONTACT PHARMACY SERVICES (#7704) FOR INTERPRETATIONOF RESULTS. THIS RESULT DOES NOT REPRESENT A PEAK OR TROUGHLEVEL FOR THIS DRUG. Performed By: #### L [id number] ####[facility] [address], [address] Bedside Glucoseon 01-14-2025 FINGERSTICK GLU 194 mg/dL High 74-106 [facility] Comment on above: Result Comment: BRISA GEMENT OF PATIENT CARE PER NURSING PROTOCOL Performed By: #### L [id number] ####[facility] [address], [address] FINGERSTICK GLU 261 mg/dL High 74-106 [facility] Comment on above: Result Comment: BRISA GEMENT OF PATIENT CARE PER NURSING PROTOCOL Performed By: #### L [id number] ####[facility] [address] [place], [address] FINGERSTICK GLU 263 mg/dL High 74-106 [facility] Comment on above: Result Comment: BRISA GEMENT OF PATIENT CARE PER NURSING PROTOCOL Performed By: #### L 501.080 ####[facility] [address] [place], [address] CBC W/Diff, Automatedon 01-02 Absolute Lymph 1.09 X10 3/uL Normal 0.83-4.51 [facility] Comment on above: Performed By: #### L 100.0100, L500.4050 ####[facility] [address] [place], [address] Absolute Neut 5.3 X10 3/uL Normal 2.0-7.7 [facility] Comment on above: Performed By: #### L 100.0100, L500.4050 ####[facility] [address] [place], [address] Basophils/100 WBC (Bld) 0.4 % Normal 0-1 [facility] Comment on above: Performed By: #### L 100.0100, L500.4050 ####[facility] [address] [place], [address] Eosinophils/100 WBC (Bld) 5.5 % High 0-5 [facility] Comment on above: Performed By: #### L 100.0100, L500.4050 ####[facility] [address] [place], [address] Erythrocyte distribution width (RBC) [Ratio] 18.5 % High 11.6-14.6 [facility] Comment on above: Performed By: #### L 100.0100, L500.4050 ####[facility] [address] [place], [address] Hematocrit (Bld) [Volume fraction] 23.2 % Low 40-54 [facility] Comment on above: Performed By: #### L 100.0100, L500.4050 ####[facility] [address] [place], [address] Hemoglobin (Bld) [Mass/Vol] 7.8 g/dL Low 13.0-16.5 [facility] Comment on above: Performed By: #### L 100.0100, L500.4050 ####[facility] [address] [place], [address] IG% 1.000 High 0.0-0.9 [facility] Comment on above: Result Comment: IG% - Immature Granulocytes (promyelocytes, myelocytes andmetamyelocytes) > 1% indicates that a LEFT SHIFT is Present. Performed By: #### L 100.0100, L500.4050 ####[facility] [address] [place], [address] Lymphocytes/100 WBC (Bld) 13.5 % Low 19-41 [facility] Comment on above: Performed By: #### L 100.0100, L500.4050 ####[facility] [address] [place], [address] MCH (RBC) [Entitic mass] 29.5 pg Normal 27.0-32.0 [facility] Comment on above: Performed By: #### L 100.0100, L500.4050 ####[facility] [address] [place], [address] MCHC (RBC) [Mass/Vol] 33.6 g/dL Normal 32-36 [facility] Comment on above: Performed By: #### L 100.0100, L500.4050 ####[facility] [address] [place], [address] MCV (RBC) [Entitic vol] 87.9 fL Normal 80-94 [facility] Comment on above: Performed By: #### L 100.0100, L500.4050 ####[facility] [address] [place], [address] Monocytes/100 WBC (Bld) 14.3 % High 0-10 [facility] Comment on above: Performed By: #### L 100.0100, L500.4050 ####[facility] [address] [place], [address] Neutrophils/100 WBC (Bld) 65.3 % Normal 47-70 [facility] Comment on above: Performed By: #### L 100.0100, L500.4050 ####[facility] [address] [place], [address] Nucleated RBC (Bld) [#/Vol] 0 10*3/uL Normal 0-5 [facility] Comment on above: Performed By: #### L 100.0100, L500.4050 ####[facility] [address] [place], [address] Platelet mean volume (Bld) [Entitic vol] 11.8 fL Normal 6.2-12.0 [facility] Comment on above: Performed By: #### L 100.0100, L500.4050 ####[facility] [address] [place], [address] Platelets (Bld) [#/Vol] 121 10*3/uL Low 150-450 [facility] Comment on above: Performed By: #### L 100.0100, L500.4050 ####[facility] [address] [place], [address] RBC (Bld) [#/Vol] 2.64 10*6/uL Low 4.6-6.2 [facility] Comment on above: Performed By: #### L 100.0100, L500.4050 ####[facility] [address] [place], [address] RDW SD 58.4 fl High 35.1-43.9 [facility] Comment on above: Performed By: #### L 100.0100, L500.4050 ####[facility] [address] [place], [address] WBC (Bld) [#/Vol] 8.1 10*3/uL Normal 4.4-11.0 [facility] Comment on above: Performed By: #### L 100.0100, L500.4050 ####[facility] [address] [place], [address] Chest without Contraston Chest without Contrast Normal [facility] Comprehensive Metabolic Prof ilon 01-14-2025 Albumin [Mass/Vol] 2.4 g/dL Low 3.5-5.0 [facility] Comment on above: Performed By: #### L 100.0100, L500.4050 ####[facility] [address] [place], [address] Albumin/Globulin [Mass ratio] 0.9 {ratio} Normal 0.9-2.4 [facility] Comment on above: Performed By: #### L 100.0100, L500.4050 ####[facility] [address] [place], [address] ALK PHOS 293 U/L High 40-129 [facility] Comment on above: Performed By: #### L 100.0100, L500.4050 ####[facility] [address] [place], [address] ALT [Catalytic activity/Vol] 61 U/L High <=46 [facility] Comment on above: Performed By: #### L 100.0100, L500.4050 ####[facility] [address] [place], [address] AST [Catalytic activity/Vol] 83 U/L High <=37 [facility] Comment on above: Performed By: #### L 100.0100, L500.4050 ####[facility] [address] [place], [address] Bilirubin [Mass/Vol] 2.64 mg/dL High 0.00-1.30 [facility] Comment on above: Performed By: #### L 100.0100, L500.4050 ####[facility] [address] [place], [address] BUN/CRE 6.4 RATIO Low 10-20 [facility] Comment on above: Performed By: #### L 100.0100, L500.4050 ####[facility] [address] [place], [address] Calcium [Mass/Vol] 7.9 mg/dL Normal 7.6-11.0 [facility] Comment on above: Performed By: #### L 100.0100, L500.4050 ####[facility] [address] [place], [address] Chloride [Moles/Vol] 95 mmol/L Low 98-108 [facility] Comment on above: Performed By: #### L 100.0100, L500.4050 ####[facility] [address] [place], [address] CO2 [Moles/Vol] 25.1 mmol/L Normal 21.0-32.0 [facility] Comment on above: Performed By: #### L 100.0100, L500.4050 ####[facility] [address] [place], [address] Creatinine [Mass/Vol] 0.86 mg/dL Normal 0.70-1.20 [facility] Comment on above: Performed By: #### L 100.0100, L500.4050 ####[facility] [address] [place], [address] ECRCL 110.10 ml/min Normal 50-250 [facility] Comment on above: Performed By: #### L 100.0100, L500.4050 ####[facility] [address] [place], [address] GAP 11 Normal 5-15 [facility] Comment on above: Performed By: #### L 100.0100, L500.4050 ####[facility] [address] [place], [address] GFR/1.73 sq M.predicted among non-blacks MDRD (S/P/Bld) [Vol rate/Area] 100 mL/min/{1.73_m2} Normal >60 [facility] Comment on above: Result Comment: mL/m in/1.73m2 CKD-EPI Creatinine Equation (2020) Performed By: #### L 100.0100, L500.4050 ####[facility] [address] [place], [address] Globulin (S) [Mass/Vol] 2.5 g/dL Normal 2.2-4.2 [facility] Comment on above: Performed By: #### L 100.0100, L500.4050 ####[facility] [address] [place], [address] Glucose [Mass/Vol] 280 mg/dL High 70-99 [facility] Comment on above: Performed By: #### L 100.0100, L500.4050 ####[facility] [address] [place], [address] Potassium [Moles/Vol] 3.0 mmol/L Low 3.3-5.1 [facility] Comment on above: Performed By: #### L 100.0100, L500.4050 ####[facility] [address] [place], [address] Sodium [Moles/Vol] 131 mmol/L Low 133-145 [facility] Comment on above: Performed By: #### L 100.0100, L500.4050 ####[facility] [address] [place], [address] T PROT 4.9 g/dL Low 5.9-8.4 [facility] Comment on above: Performed By: #### L 100.0100, L500.4050 ####[facility] [address] [place], [address] Urea nitrogen [Mass/Vol] 6 mg/dL Normal 4-19 [facility] Comment on above: Performed By: #### L 100.0100, L500.4050 ####[facility] [address] [place], [address] Culture, Blood (WB)on 2024 CUB Blood cultures x2, f rom two different sites No growth in 5 days. Normal [facility] Comment on above: Performed By: #### M 200.1000 ####[facility] [address] [place], [address] Magnetic resonance imaging r eportOrdered By: Kenneth Barton on 01-14-2025 Study report [facility] Work Phone: PSA,Total- Diagnosticon 01-02 PSA, DIAGNOSTIC 0.65 ng/mL Normal 0.00-4.00 [facility] Comment on above: Result Comment: This test was performed using the [employer] tPSAmethod. Measured values of a patient??sample can varydepending on the testing procedure used. PSA valuesdetermined on patient samples by different testingprocedures cannot be used interchangeably. If there is achange in PSA assays while monitoring therapy, sequentialtesting should be performed to confirm baseline values. Performed By: #### L 501.9940 ####[facility] [address] [place], [place], [address] Trough vancomycin levelOrder ed By: Cielo Tovar on 01-14-2025 Vancomycin trough [Mass/Vol] 21.4 ug/mL High 5.0-15.0 [facility] Vancomycin, Trough Levelon 0 01-14-2025 VANCO, TROUGH 21.4 ug/mL High 5.0-15.0 [facility] Comment on above: Order Comment: [id number] Result Comment: Eleazar mmended goal trough ranges [...] therapy recommended for serious lifethreatening infections include:- Ouyzeyaqdt-Platkuzdsttl-Dyipensrw (Ventilator/Healtcare Associated)-SepsisPLEASE CONTACT PHARMACY SERVICES (#1022) FOR INTERPRETATIONOF RESULTS. Performed By: #### L 501.8820 ####[facility] [address] [place], [place], [address] BRCon 01-13-2025 RC Normal [facility] Comment on above: Result Comment: [id number] ON RC TRANSFUSED 01/13/25 1613 Performed By: #### B RC, BTS ####[facility] [address] [place], [address] Bedside Glucoseon 01-13-2025 FINGERSTICK GLU 272 mg/dL High 74-106 [facility] Comment on above: Result Comment: BRISA GEMENT OF PATIENT CARE PER NURSING PROTOCOL Performed By: #### L 501.080 ####[facility] [address] [place], [address] FINGERSTICK GLU 268 mg/dL High 74-106 [facility] Comment on above: Result Comment: BRISA GEMENT OF PATIENT CARE PER NURSING PROTOCOL Performed By: #### L 501.080 ####[facility] [address] [place], [address] FINGERSTICK GLU 249 mg/dL High -106 [facility] Comment on above: Result Comment: BRISA GEMENT OF PATIENT CARE PER NURSING PROTOCOL Performed By: #### L 501.080 ####[facility] [address] [place], [address] FINGERSTICK GLU 201 mg/dL High [facility]106 [facility] Comment on above: Result Comment: BRISA GEMENT OF PATIENT CARE PER NURSING PROTOCOL Performed By: #### L 501.080 ####[facility] [address] [place], [address] CBC W/Diff, Automatedon 01-02 Absolute Lymph 1.25 X10 3/uL Normal 0.83-4.51 [facility] Comment on above: Performed By: #### L 100.0100, L500.4050 ####[facility] [address] [place], [address] Absolute Neut 5.7 X10 3/uL Normal 2.0-7.7 [facility] Comment on above: Performed By: #### L 100.0100, L500.4050 ####[facility] [address] [place], [address] Basophils/100 WBC (Bld) 0.3 % Normal 0-1 [facility] Comment on above: Performed By: #### L 100.0100, L500.4050 ####[facility] [address] [place], [address] Eosinophils/100 WBC (Bld) 5.2 % High 0-5 [facility] Comment on above: Performed By: #### L 100.0100, L500.4050 ####[facility] [address] [place], [address] Erythrocyte distribution width (RBC) [Ratio] 18.6 % High 11.6-14.6 [facility] Comment on above: Performed By: #### L 100.0100, L500.4050 ####[facility] [address] [place], [address] Hematocrit (Bld) [Volume fraction] 21.0 % Low 40-54 [facility] Comment on above: Performed By: #### L 100.0100, L500.4050 ####[facility] [address] [place], [address] Hemoglobin (Bld) [Mass/Vol] 7.2 g/dL Low 13.0-16.5 [facility] Comment on above: Performed By: #### L 100.0100, L500.4050 ####[facility] [address] [place], [address] IG% 0.800 Normal 0.0-0.9 [facility] Comment on above: Result Comment: IG% - Immature Granulocytes (promyelocytes, myelocytes andmetamyelocytes) > 1% indicates that a LEFT SHIFT is Present. Performed By: #### L 100.0100, L500.4050 ####[facility] [address] [place], [address] Lymphocytes/100 WBC (Bld) 14.4 % Low 19-41 [facility] Comment on above: Performed By: #### L 100.0100, L500.4050 ####[facility] [address] [place], [address] MCH (RBC) [Entitic mass] 30.3 pg Normal 27.0-32.0 [facility] Comment on above: Performed By: #### L 100.0100, L500.4050 ####[facility] [address] [place], [address] MCHC (RBC) [Mass/Vol] 34.3 g/dL Normal 32-36 [facility] Comment on above: Performed By: #### L 100.0100, L500.4050 ####[facility] [address] [place], [address] MCV (RBC) [Entitic vol] 88.2 fL Normal 80-94 [facility] Comment on above: Performed By: #### L 100.0100, L500.4050 ####[facility] [address] [place], [address] Monocytes/100 WBC (Bld) 13.7 % High 0-10 [facility] Comment on above: Performed By: #### L 100.0100, L500.4050 ####[facility] [address] [place], [address] Neutrophils/100 WBC (Bld) 65.6 % Normal 47-70 [facility] Comment on above: Performed By: #### L 100.0100, L500.4050 ####[facility] [address] [place], [address] Nucleated RBC (Bld) [#/Vol] 0 10*3/uL Normal 0-5 [facility] Comment on above: Performed By: #### L 100.0100, L500.4050 ####[facility] [address] [place], [address] Platelet mean volume (Bld) [Entitic vol] 11.3 fL Normal 6.2-12.0 [facility] Comment on above: Performed By: #### L 100.0100, L500.4050 ####[facility] [address] [place], [address] Platelets (Bld) [#/Vol] 124 10*3/uL Low 150-450 [facility] Comment on above: Performed By: #### L 100.0100, L500.4050 ####[facility] [address] [place], [address] RBC (Bld) [#/Vol] 2.38 10*6/uL Low 4.6-6.2 [facility] Comment on above: Performed By: #### L 100.0100, L500.4050 ####[facility] [address] [place], [address] RDW SD 59.2 fl High 35.1-43.9 [facility] Comment on above: Performed By: #### L 100.0100, L500.4050 ####[facility] [address] [place], [address] WBC (Bld) [#/Vol] 8.7 10*3/uL Normal 4.4-11.0 [facility] Comment on above: Performed By: #### L 100.0100, L500.4050 ####[facility] [address] [place], [address] Comprehensive Metabolic Prof ilon 01-13-2025 Albumin [Mass/Vol] 2.3 g/dL Low 3.5-5.0 [facility] Comment on above: Performed By: #### L 100.0100, L500.4050 ####[facility] [address] [place], [address] Albumin/Globulin [Mass ratio] 0.9 {ratio} Normal 0.9-2.4 [facility] Comment on above: Performed By: #### L 100.0100, L500.4050 ####[facility] [address] [place], [address] ALK PHOS 306 U/L High 40-129 [facility] Comment on above: Performed By: #### L 100.0100, L500.4050 ####[facility] [address] [place], [address] ALT [Catalytic activity/Vol] 72 U/L High <=46 [facility] Comment on above: Performed By: #### L 100.0100, L500.4050 ####[facility] [address] [place], [address] AST [Catalytic activity/Vol] 107 U/L High <=37 [facility] Comment on above: Performed By: #### L 100.0100, L500.4050 ####[facility] [address] [place], [address] Bilirubin [Mass/Vol] 1.69 mg/dL High 0.00-1.30 [facility] Comment on above: Performed By: #### L 100.0100, L500.4050 ####[facility] [address] [place], [address] BUN/CRE 7.3 RATIO Low 10-20 [facility] Comment on above: Performed By: #### L 100.0100, L500.4050 ####[facility] [address] [place], [address] Calcium [Mass/Vol] 7.7 mg/dL Normal 7.6-11.0 [facility] Comment on above: Performed By: #### L 100.0100, L500.4050 ####[facility] [address] [place], [address] Chloride [Moles/Vol] 96 mmol/L Low 98-108 [facility] Comment on above: Performed By: #### L 100.0100, L500.4050 ####[facility] [address] [place], [address] CO2 [Moles/Vol] 25.5 mmol/L Normal 21.0-32.0 [facility] Comment on above: Performed By: #### L 100.0100, L500.4050 ####[facility] [address] [place], [address] Creatinine [Mass/Vol] 0.90 mg/dL Normal 0.70-1.20 [facility] Comment on above: Performed By: #### L 100.0100, L500.4050 ####[facility] [address] [place], [address] ECRCL 103.13 ml/min Normal 50-250 [facility] Comment on above: Performed By: #### L 100.0100, L500.4050 ####[facility] [address] [place], [address] GAP 10 Normal 5-15 [facility] Comment on above: Performed By: #### L 100.0100, L500.4050 ####[facility] [address] [place], [address] GFR/1.73 sq M.predicted among non-blacks MDRD (S/P/Bld) [Vol rate/Area] 99 mL/min/{1.73_m2} Normal >60 [facility] Comment on above: Result Comment: mL/m in/1.73m2 CKD-EPI Creatinine Equation (2020) Performed By: #### L 100.0100, L500.4050 ####[facility] [address] [place], [address] Globulin (S) [Mass/Vol] 2.6 g/dL Normal 2.2-4.2 [facility] Comment on above: Performed By: #### L 100.0100, L500.4050 ####[facility] [address] [place], [address] Glucose [Mass/Vol] 187 mg/dL High 70-99 [facility] Comment on above: Performed By: #### L 100.0100, L500.4050 ####[facility] [address] [place], [address] Potassium [Moles/Vol] 3.1 mmol/L Low 3.3-5.1 [facility] Comment on above: Performed By: #### L 100.0100, L500.4050 ####[facility] [address] [place], [address] Sodium [Moles/Vol] 132 mmol/L Low 133-145 [facility] Comment on above: Performed By: #### L 100.0100, L500.4050 ####[facility] [address] [place], [address] T PROT 4.9 g/dL Low 5.9-8.4 [facility] Comment on above: Performed By: #### L 100.0100, L500.4050 ####[facility] [address] [place], [address] Urea nitrogen [Mass/Vol] 7 mg/dL Normal 4-19 [facility] Comment on above: Performed By: #### L 100.0100, L500.4050 ####[facility] [address] [place], [address] Ferritinon 01-13-2025 Ferritin [Mass/Vol] 76 ng/mL Normal 37-417 [facility] Comment on above: Performed By: #### L 503.6550, L503.6030 ####[facility] [address] [place], [place], [address] Iron measurement (mass/mass) Ordered By: Cielo Tovar on 01-13-2025 Iron (Unsp spec) [Mass/Mass] 110 ug/dL 65-175 [facility] Iron+Iron Binding Capacityon 01-13-2025 TIBC 211 ug/dL Low 250-450 [facility] Comment on above: Performed By: #### L 503.6550, L503.6030 ####[facility] [address] [place], [address] Magnetic resonance imaging r eportOrdered By: Jerry Osorio on 01-13-2025 Study report [facility] No Panel InformationOrdered By: Cielo Tovar on 01-13-2025 101 ug/dL Low 228-428 [facility] Serum or plasma ferritin wei surement (mass/volume)Ordered By: Cielo Tovar on 01-13-2025 Ferritin [Mass/Vol] 76 ng/mL 37-417 [facility] Serum or plasma iron saturat ion measurement (mass fraction)Ordered By: Cielo Tovar on 01-13-2025 Iron saturation [Mass fraction] 52.1 % 9-55 [facility] Spine Lumbar (Routine)on Spine Lumbar (Routine) Normal [facility] Spine Thoracic (Routine)on 0 01-13-2025 Spine Thoracic (Routine) Normal [facility] Type AND Screenon 01-13-2025 ABO and Rh group Nom (Bld) Blood group O Rh(D) positive Normal [facility] Comment on above: Order Comment: CMV N EG? NNumber of units to transfuse: 1Reason for Ordering Blood: AcuteAre the blood/blood products to be transfused? YIs the patient having/had surgery? NNWhen ReadyNYA Performed By: #### B RC, BTS ####[facility] [address] [place], [place], [id number] Vancomycin, Trough Levelon 0 01-13-2025 VANCO, TROUGH 19.8 ug/mL High 5.0-15.0 [facility] Comment on above: Order Comment: Comme nts: Trough to be drawn 30 mins prior to scheduled [id number] Result Comment: Eleazar mmended goal trough ranges [...] therapy recommended for serious lifethreatening infections include:- Ecrietjacn-Bdgkaqckafwh-Qghkzctzg (Ventilator/Healtcare Associated)-SepsisPLEASE CONTACT PHARMACY SERVICES (#4831) FOR INTERPRETATIONOF RESULTS. Performed By: #### L 501.8820 ####[facility] [address] [facility] [address] Bedside Glucoseon 01-12-2025 FINGERSTICK GLU 241 mg/dL High [address] [place] [address] Comment on above: Result Comment: BRISA GEMENT OF PATIENT CARE PER NURSING PROTOCOL Performed By: #### L 501.080 ####[facility] [address] [facility] [address] FINGERSTICK GLU 316 mg/dL High [address] [place] [address] Comment on above: Result Comment: BRISA GEMENT OF PATIENT CARE PER NURSING PROTOCOL Performed By: #### L 501.080 ####[facility] [address] [facility] [address] FINGERSTICK GLU 224 mg/dL High [address] [place] [address] Comment on above: Result Comment: BRISA GEMENT OF PATIENT CARE PER NURSING PROTOCOL Performed By: #### L 501.080 ####[facility] [address] [facility] [address] FINGERSTICK GLU 214 mg/dL High [facility]106 [facility] Comment on above: Result Comment: BRISA GEMENT OF PATIENT CARE PER NURSING PROTOCOL Performed By: #### L 501.080 ####[facility] [address] [place], [address] CBC W/Diff, Automatedon 01-02 Absolute Lymph 0.99 X10 3/uL Normal 0.83-4.51 [facility] Comment on above: Performed By: #### L 100.0100, L500.4050 ####[facility] [address] [place], [address] Absolute Neut 5.9 X10 3/uL Normal 2.0-7.7 [facility] Comment on above: Performed By: #### L 100.0100, L500.4050 ####[facility] [address] [place], [address] Basophils/100 WBC (Bld) 0.5 % Normal 0-1 [facility] Comment on above: Performed By: #### L 100.0100, L500.4050 ####[facility] [address] [place], [address] Eosinophils/100 WBC (Bld) 6.5 % High 0-5 [facility] Comment on above: Performed By: #### L 100.0100, L500.4050 ####[facility] [address] [place], [address] Erythrocyte distribution width (RBC) [Ratio] 18.4 % High 11.6-14.6 [facility] Comment on above: Performed By: #### L 100.0100, L500.4050 ####[facility] [address] [place], [address] Hematocrit (Bld) [Volume fraction] 21.8 % Low 40-54 [facility] Comment on above: Performed By: #### L 100.0100, L500.4050 ####[facility] [address] [place], [address] Hemoglobin (Bld) [Mass/Vol] 7.4 g/dL Low 13.0-16.5 [facility] Comment on above: Performed By: #### L 100.0100, L500.4050 ####[facility] [address] [place], [address] IG% 1.100 High 0.0-0.9 [facility] Comment on above: Result Comment: IG% - Immature Granulocytes (promyelocytes, myelocytes andmetamyelocytes) > 1% indicates that a LEFT SHIFT is Present. Performed By: #### L 100.0100, L500.4050 ####[facility] [address] [place], [address] Lymphocytes/100 WBC (Bld) 11.6 % Low 19-41 [facility] Comment on above: Performed By: #### L 100.0100, L500.4050 ####[facility] [address] [place], [address] MCH (RBC) [Entitic mass] 29.5 pg Normal 27.0-32.0 [facility] Comment on above: Performed By: #### L 100.0100, L500.4050 ####[facility] [address] [place], [address] MCHC (RBC) [Mass/Vol] 33.9 g/dL Normal 32-36 [facility] Comment on above: Performed By: #### L 100.0100, L500.4050 ####[facility] [address] [place], [address] MCV (RBC) [Entitic vol] 86.9 fL Normal 80-94 [facility] Comment on above: Performed By: #### L 100.0100, L500.4050 ####[facility] [address] [place], [address] Monocytes/100 WBC (Bld) 12.1 % High 0-10 [facility] Comment on above: Performed By: #### L 100.0100, L500.4050 ####[facility] [address] [place], [address] Neutrophils/100 WBC (Bld) 68.2 % Normal 47-70 [facility] Comment on above: Performed By: #### L 100.0100, L500.4050 ####[facility] [address] [place], [address] Nucleated RBC (Bld) [#/Vol] 0 10*3/uL Normal 0-5 [facility] Comment on above: Performed By: #### L 100.0100, L500.4050 ####[facility] [address] [place], [address] Platelet mean volume (Bld) [Entitic vol] 11.7 fL Normal 6.2-12.0 [facility] Comment on above: Performed By: #### L 100.0100, L500.4050 ####[facility] [address] [place], [address] Platelets (Bld) [#/Vol] 127 10*3/uL Low 150-450 [facility] Comment on above: Performed By: #### L 100.0100, L500.4050 ####[facility] [address] [place], [address] RBC (Bld) [#/Vol] 2.51 10*6/uL Low 4.6-6.2 [facility] Comment on above: Performed By: #### L 100.0100, L500.4050 ####[facility] [address] [place], [address] RDW SD 57.6 fl High 35.1-43.9 [facility] Comment on above: Performed By: #### L 100.0100, L500.4050 ####[facility] [address] [place], [address] WBC (Bld) [#/Vol] 8.6 10*3/uL Normal 4.4-11.0 [facility] Comment on above: Performed By: #### L 100.0100, L500.4050 ####[facility] [address] [place], [address] Comprehensive Metabolic Prof [facility] 01-12-2025 Albumin [Mass/Vol] 2.4 g/dL Low 3.5-5.0 [facility] Comment on above: Performed By: #### L 100.0100, L500.4050 ####[facility] [address] [place], [address] Albumin/Globulin [Mass ratio] 0.9 {ratio} Normal 0.9-2.4 [facility] Comment on above: Performed By: #### L 100.0100, L500.4050 ####[facility] [address] [place], [address] ALK PHOS 332 U/L High 40-129 [facility] Comment on above: Performed By: #### L 100.0100, L500.4050 ####[facility] [address] [place], [address] ALT [Catalytic activity/Vol] 82 U/L High <=46 [facility] Comment on above: Performed By: #### L 100.0100, L500.4050 ####[facility] [address] [place], [address] AST [Catalytic activity/Vol] 148 U/L High <=37 [facility] Comment on above: Performed By: #### L 100.0100, L500.4050 ####[facility] [address] [place], [address] Bilirubin [Mass/Vol] 1.95 mg/dL High 0.00-1.30 [facility] Comment on above: Performed By: #### L 100.0100, L500.4050 ####[facility] [address] [place], [address] BUN/CRE 10.5 RATIO Normal 10-20 [facility] Comment on above: Performed By: #### L 100.0100, L500.4050 ####[facility] [address] [place], [address] Calcium [Mass/Vol] 7.6 mg/dL Normal 7.6-11.0 [facility] Comment on above: Performed By: #### L 100.0100, L500.4050 ####[facility] [address] [place], [address] Chloride [Moles/Vol] 97 mmol/L Low 98-108 [facility] Comment on above: Performed By: #### L 100.0100, L500.4050 ####[facility] [address] [place], [address] CO2 [Moles/Vol] 24.4 mmol/L Normal 21.0-32.0 [facility] Comment on above: Performed By: #### L 100.0100, L500.4050 ####[facility] [address] [place], [address] Creatinine [Mass/Vol] 0.93 mg/dL Normal 0.70-1.20 [facility] Comment on above: Performed By: #### L 100.0100, L500.4050 ####[facility] [address] [place], [address] ECRCL 99.17 ml/min Normal 50-250 [facility] Comment on above: Performed By: #### L 100.0100, L500.4050 ####[facility] [address] [place], [address] GAP 9 Normal 5-15 [facility] Comment on above: Performed By: #### L 100.0100, L500.4050 ####[facility] [address] [place], [address] GFR/1.73 sq M.predicted among non-blacks MDRD (S/P/Bld) [Vol rate/Area] 95 mL/min/{1.73_m2} Normal >60 [facility] Comment on above: Result Comment: mL/m in/1.73m2 CKD-EPI Creatinine Equation (2020) Performed By: #### L 100.0100, L500.4050 ####[facility] [address] [place], [address] Globulin (S) [Mass/Vol] 2.7 g/dL Normal 2.2-4.2 [facility] Comment on above: Performed By: #### L 100.0100, L500.4050 ####[facility] [address] [place], [address] Glucose [Mass/Vol] 241 mg/dL High 70-99 [facility] Comment on above: Performed By: #### L 100.0100, L500.4050 ####[facility] [address] [place], [address] Potassium [Moles/Vol] 3.1 mmol/L Low 3.3-5.1 [facility] Comment on above: Performed By: #### L 100.0100, L500.4050 ####[facility] [address] [place], [address] Sodium [Moles/Vol] 130 mmol/L Low 133-145 [facility] Comment on above: Performed By: #### L 100.0100, L500.4050 ####[facility] [address] [place], [address] T PROT 5.0 g/dL Low 5.9-8.4 [facility] Comment on above: Performed By: #### L 100.0100, L500.4050 ####[facility] [address] [place], [address] Urea nitrogen [Mass/Vol] 10 mg/dL Normal 4-19 [facility] Comment on above: Performed By: #### L 100.0100, L500.4050 ####[facility] [address] [place], [address] Urine Cultureon 01-12-2025 [facility] Urine Culture Urine Culture Yeast, not Mary albicans [place] Count 25,000-50,000 Normal [facility] Comment on above: Performed By: #### M 100.2200 ####[facility] [address] [place], [address] Bedside Glucoseon 01-11-2025 FINGERSTICK GLU 258 mg/dL High 74-106 [facility] Comment on above: Result Comment: BRISA GEMENT OF PATIENT CARE PER NURSING PROTOCOL Performed By: #### L 501.080 ####[facility] [address] [place], [address] FINGERSTICK GLU 298 mg/dL High 74-106 [facility] Comment on above: Result Comment: BRISA GEMENT OF PATIENT CARE PER NURSING PROTOCOL Performed By: #### L 501.080 ####[facility] [address] [place], [address] FINGERSTICK GLU 268 mg/dL High 74-106 [facility] Comment on above: Result Comment: BRISA GEMENT OF PATIENT CARE PER NURSING PROTOCOL Performed By: #### L 501.080 ####[facility] [address] [place], [address] FINGERSTICK GLU 251 mg/dL High 74-106 [facility] Comment on above: Result Comment: BRISA GEMENT OF PATIENT CARE PER NURSING PROTOCOL Performed By: #### L 501.080 ####[facility] [address] [place], [address] CBC W/Diff, Automatedon - 0-2024 Absolute Lymph 1.01 X10 3/uL Normal 0.83-4.51 [facility] Comment on above: Performed By: #### L 100.0100 ####[facility] [address] [place], [address] Absolute Neut 5.6 X10 3/uL Normal 2.0-7.7 [facility] Comment on above: Performed By: #### L 100.0100 ####[facility] [address] [place], [address] Basophils/100 WBC (Bld) 0.5 % Normal 0-1 [facility] Comment on above: Performed By: #### L 100.0100 ####[facility] [address] [place], [address] Eosinophils/100 WBC (Bld) 4.6 % Normal 0-5 [facility] Comment on above: Performed By: #### L 100.0100 ####[facility] [address] [place], [address] Erythrocyte distribution width (RBC) [Ratio] 18.6 % High 11.6-14.6 [facility] Comment on above: Performed By: #### L 100.0100 ####[facility] [address] [place], [address] Hematocrit (Bld) [Volume fraction] 21.8 % Low 40-54 [facility] Comment on above: Performed By: #### L 100.0100 ####[facility] [address] [place], [address] Hemoglobin (Bld) [Mass/Vol] 7.4 g/dL Low 13.0-16.5 [facility] Comment on above: Performed By: #### L 100.0100 ####[facility] [address] [place], [address] IG% 0.900 Normal 0.0-0.9 [facility] Comment on above: Result Comment: IG% - Immature Granulocytes (promyelocytes, myelocytes andmetamyelocytes) > 1% indicates that a LEFT SHIFT is Present. Performed By: #### L 100.0100 ####[facility] [address] [place], [address] Lymphocytes/100 WBC (Bld) 12.6 % Low 19-41 [facility] Comment on above: Performed By: #### L 100.0100 ####[facility] [address] [place], [address] MCH (RBC) [Entitic mass] 29.7 pg Normal 27.0-32.0 [facility] Comment on above: Performed By: #### L 100.0100 ####[facility] [address] [place], [address] MCHC (RBC) [Mass/Vol] 33.9 g/dL Normal 32-36 [facility] Comment on above: Performed By: #### L 100.0100 ####[facility] [address] [place], [address] MCV (RBC) [Entitic vol] 87.6 fL Normal 80-94 [facility] Comment on above: Performed By: #### L 100.0100 ####[facility] [address] [place], [address] Monocytes/100 WBC (Bld) 11.8 % High 0-10 [facility] Comment on above: Performed By: #### L 100.0100 ####[facility] [address] [place], [address] Neutrophils/100 WBC (Bld) 69.6 % Normal 47-70 [facility] Comment on above: Performed By: #### L 100.0100 ####[facility] [address] [place], [address] Nucleated RBC (Bld) [#/Vol] 0 10*3/uL Normal 0-5 [facility] Comment on above: Performed By: #### L 100.0100 ####[facility] [address] [place], [address] Platelet mean volume (Bld) [Entitic vol] 12.1 fL High 6.2-12.0 [facility] Comment on above: Performed By: #### L 100.0100 ####[facility] [address] [place], [address] Platelets (Bld) [#/Vol] 130 10*3/uL Low 150-450 [facility] Comment on above: Performed By: #### L 100.0100 ####[facility] [address] [place], [address] RBC (Bld) [#/Vol] 2.49 10*6/uL Low 4.6-6.2 [facility] Comment on above: Performed By: #### L 100.0100 ####[facility] [address] [place], [address] RDW SD 56.7 fl High 35.1-43.9 [facility] Comment on above: Performed By: #### L 100.0100 ####[facility] [address] [place], [address] WBC (Bld) [#/Vol] 8.0 10*3/uL Normal 4.4-11.0 [facility] Comment on above: Performed By: #### L 100.0100 ####[facility] [address] [place], [address] Absolute Neut Normal 2.0-7.7 [facility] Comment on above: Result Comment: This specimen has been REJECTED due to Laboratory criteria:Clotted.DSCOTT has been notified of need of recollection.01/11/25555 Vitaliy Lillie Performed By: #### L 100.0100, L500.4050 ####[facility] [address] [place], [address] HCT Normal 40-54 [facility] Comment on above: Result Comment: This specimen has been REJECTED due to Laboratory criteria:Clotted.DSCOTT has been notified of need of recollection.01/11/25555 Vitaliy Lillie Performed By: #### L 100.0100, L500.4050 ####[facility] [address] [facility] [address] HGB Normal 13.0-16.5 [facility] Comment on above: Result Comment: This specimen has been REJECTED due to Laboratory criteria:Clotted.DSCOTT has been notified of need of recollection.01/11/25555 Vitaliy Stafford Performed By: #### L 100.0100, L500.4050 ####[facility] [address] [facility] [address] MCH Normal 27.0-32.0 [facility] Comment on above: Result Comment: This specimen has been REJECTED due to Laboratory criteria:Clotted.DSCOTT has been notified of need of recollection.01/11/25555 Vitaliy Lillie Performed By: #### L 100.0100, L500.4050 ####[facility] [address] [place], [address] MCHC Normal 32-36 [facility] Comment on above: Result Comment: This specimen has been REJECTED due to Laboratory criteria:Clotted.DSCOTT has been notified of need of recollection.01/11/25555 Vitaliy Lillie Performed By: #### L 100.0100, L500.4050 ####[facility] [address] [place], [address] MCV Normal 80-94 [facility] Comment on above: Result Comment: This specimen has been REJECTED due to Laboratory criteria:Clotted.DSCOTT has been notified of need of recollection.01/11/25555 Vitaliy Stafford Performed By: #### L 100.0100, L500.4050 ####[facility] [address] [place], [address] NEUT% Normal 47-70 [facility] Comment on above: Result Comment: This specimen has been REJECTED due to Laboratory criteria:Clotted.DSCOTT has been notified of need of recollection.01/11/25555 Vitaliy Stafford Performed By: #### L 100.0100, L500.4050 ####[facility] [address] [facility] [address] PLT Normal 150-450 [facility] Comment on above: Result Comment: This specimen has been REJECTED due to Laboratory criteria:Clotted.DSCOTT has been notified of need of recollection.01/11/25555 Vitaliy Stafford Performed By: #### L 100.0100, L500.4050 ####[facility] [address] [place], [address] RBC Normal 4.6-6.2 [facility] Comment on above: Result Comment: This specimen has been REJECTED due to Laboratory criteria:Clotted.DSCOTT has been notified of need of recollection.01/11/25555 Vitaliy Stafford Performed By: #### L 100.0100, L500.4050 ####[facility] [address] [place], [address] RDW CV Normal 11.6-14.6 [facility] Comment on above: Result Comment: This specimen has been REJECTED due to Laboratory criteria:Clotted.DSCOTT has been notified of need of recollection.01/11/25555 Vitaliy Lillie Performed By: #### L 100.0100, L500.4050 ####[facility] [address] [place], [address] RDW SD Normal 35.1-43.9 [facility] Comment on above: Result Comment: This specimen has been REJECTED due to Laboratory criteria:Clotted.DSCOTT has been notified of need of recollection.01/11/25555 Vitaliy Lillie Performed By: #### L 100.0100, L500.4050 ####[facility] [address] [place], [address] WBC Normal 4.4-11.0 [facility] Comment on above: Result Comment: This specimen has been REJECTED due to Laboratory criteria:Clotted.DSCOTT has been notified of need of recollection.01/11/25555 Vitaliy Stafford Performed By: #### L 100.0100, L500.4050 ####[facility] [address] [place], [address] Comprehensive Metabolic Prof ilon 01-11-2025 Albumin [Mass/Vol] 2.2 g/dL Low 3.5-5.0 [facility] Comment on above: Performed By: #### L 100.0100, L500.4050 ####[facility] [address] [place], [address] Albumin/Globulin [Mass ratio] 0.8 {ratio} Low 0.9-2.4 [facility] Comment on above: Performed By: #### L 100.0100, L500.4050 ####[facility] [address] [place], [address] ALK PHOS 314 U/L High 40-129 [facility] Comment on above: Performed By: #### L 100.0100, L500.4050 ####[facility] [address] [place], [address] ALT [Catalytic activity/Vol] 66 U/L High <=46 [facility] Comment on above: Performed By: #### L 100.0100, L500.4050 ####[facility] [address] [place], [address] AST [Catalytic activity/Vol] 137 U/L High <=37 [facility] Comment on above: Result Comment: Hemo lysis present, Results??could be affected.?? Performed By: #### L 100.0100, L500.4050 ####[facility] [address] [place], [address] Bilirubin [Mass/Vol] 2.05 mg/dL High 0.00-1.30 [facility] Comment on above: Performed By: #### L 100.0100, L500.4050 ####[facility] [address] [place], [address] BUN/CRE 13.4 RATIO Normal 10-20 [facility] Comment on above: Performed By: #### L 100.0100, L500.4050 ####[facility] [address] [place], [address] Calcium [Mass/Vol] 7.6 mg/dL Normal 7.6-11.0 [facility] Comment on above: Performed By: #### L 100.0100, L500.4050 ####[facility] [address] [place], [address] Chloride [Moles/Vol] 99 mmol/L Normal 98-108 [facility] Comment on above: Performed By: #### L 100.0100, L500.4050 ####[facility] [address] [place], [address] CO2 [Moles/Vol] 17.3 mmol/L Low 21.0-32.0 [facility] Comment on above: Performed By: #### L 100.0100, L500.4050 ####[facility] [address] [place], [address] Creatinine [Mass/Vol] 1.18 mg/dL Normal 0.70-1.20 [facility] Comment on above: Performed By: #### L 100.0100, L500.4050 ####[facility] [address] [place], [address] ECRCL 78.27 ml/min Normal 50-250 [facility] Comment on above: Performed By: #### L 100.0100, L500.4050 ####[facility] [address] [place], [address] GAP 12 Normal 5-15 [facility] Comment on above: Performed By: #### L 100.0100, L500.4050 ####[facility] [address] [place], [address] GFR/1.73 sq M.predicted among non-blacks MDRD (S/P/Bld) [Vol rate/Area] 72 mL/min/{1.73_m2} Normal >60 [facility] Comment on above: Result Comment: mL/m in/1.73m2 CKD-EPI Creatinine Equation (2020) Performed By: #### L 100.0100, L500.4050 ####[facility] [address] [place], [address] Globulin (S) [Mass/Vol] 2.8 g/dL Normal 2.2-4.2 [facility] Comment on above: Performed By: #### L 100.0100, L500.4050 ####[facility] [address] [place], [address] Glucose [Mass/Vol] 275 mg/dL High 70-99 [facility] Comment on above: Performed By: #### L 100.0100, L500.4050 ####[facility] [address] [place], [address] Potassium [Moles/Vol] 3.5 mmol/L Normal 3.3-5.1 [facility] Comment on above: Result Comment: Hemo lysis present, Results??could be affected.?? Performed By: #### L 100.0100, L500.4050 ####[facility] [address] [place], [address] Sodium [Moles/Vol] 129 mmol/L Low 133-145 [facility] Comment on above: Performed By: #### L 100.0100, L500.4050 ####[facility] [address] [place], [address] T PROT 5.0 g/dL Low 5.9-8.4 [facility] Comment on above: Performed By: #### L 100.0100, L500.4050 ####[facility] [address] [place], [address] Urea nitrogen [Mass/Vol] 16 mg/dL Normal 4-19 [facility] Comment on above: Performed By: #### L 100.0100, L500.4050 ####[facility] [address] [place], [address] Consultation - Surgicalon Consultation - Surgical Normal [facility] Vancomycin, Random Levelon 0 01-11-2025 VANCO, RANDOM 14.8 ug/mL Normal 0.0-15.0 [facility] Comment on above: Result Comment: VANC OMYCIN STANDARD DRUG THERAPY: CRITICAL VALUE IS > 15.0 mg/LVANCOMYCIN HIGH INTENSITY THERAPY: CRITICAL VALUE IS > 20.0 mg/LPLEASE CONTACT PHARMACY SERVICES (#2973) FOR INTERPRETATIONOF RESULTS. THIS RESULT DOES NOT REPRESENT A PEAK OR TROUGHLEVEL FOR THIS DRUG. Performed By: #### L 501.8850 ####[facility] [address] [place], [address] Vancomycin, Trough Levelon 0 01-11-2025 VANCO, TROUGH 21.8 ug/mL High 5.0-15.0 [facility] Comment on above: Order Comment: Comme nts: DRAW 30 MIN PRIOR TO [id number] Result Comment: Eleazar mmended goal trough ranges [...] therapy recommended for serious lifethreatening infections include:- Shjmejtbkv-Vhhxjsktezqd-Erethdkbh (Ventilator/Healtcare Associated)-SepsisPLEASE CONTACT PHARMACY SERVICES (#7228) FOR INTERPRETATIONOF RESULTS. Performed By: #### L 501.8820 ####[facility] [address] [facility] [address] Bedside Glucoseon 01-10-2025 FINGERSTICK GLU 193 mg/dL High 74-106 [facility] Comment on above: Result Comment: BRISA GEMENT OF PATIENT CARE PER NURSING PROTOCOL Performed By: #### L 501.080 ####[facility] [address] [place], [address] FINGERSTICK GLU 190 mg/dL High [facility]106 [facility] Comment on above: Result Comment: BRISA GEMENT OF PATIENT CARE PER NURSING PROTOCOL Performed By: #### L 501.080 ####[facility] [address] [facility] [address] FINGERSTICK GLU 195 mg/dL High [address] [facility] Comment on above: Result Comment: BRISA GEMENT OF PATIENT CARE PER NURSING PROTOCOL Performed By: #### L 501.080 ####[facility] [address] [place], [address] CBC W/Diff, Automatedon 06- Absolute Lymph 0.85 X10 3/uL Normal 0.83-4.51 [facility] Comment on above: Order Comment: REDRA W. PREVIOUS SPECIMEN REJECTED DUE TOCONTAMINATION. 01/10/25410 Eliazar R Mancia. Performed By: #### L 100.0100 ####[facility] [address] [place], [address] Absolute Neut 7.3 X10 3/uL Normal 2.0-7.7 [facility] Comment on above: Order Comment: REDRA W. PREVIOUS SPECIMEN REJECTED DUE TOCONTAMINATION. 01/10/25410 Eliazar R Mancia. Performed By: #### L 100.0100 ####[facility] [address] [place], [address] Basophils/100 WBC (Bld) 0.5 % Normal 0-1 [facility] Comment on above: Order Comment: REDRA W. PREVIOUS SPECIMEN REJECTED DUE TOCONTAMINATION. 01/10/25410 Eliazar R Mancia. Performed By: #### L 100.0100 ####[facility] [address] [place], [address] Eosinophils/100 WBC (Bld) 5.9 % High 0-5 [facility] Comment on above: Order Comment: REDRA W. PREVIOUS SPECIMEN REJECTED DUE TOCONTAMINATION. 01/10/25410 Eliazar R Mancia. Performed By: #### L 100.0100 ####[facility] [address] [place], [address] Erythrocyte distribution width (RBC) [Ratio] 18.7 % High 11.6-14.6 [facility] Comment on above: Order Comment: REDRA W. PREVIOUS SPECIMEN REJECTED DUE TOCONTAMINATION. 01/10/25410 Eliazar R Mancia. Performed By: #### L 100.0100 ####[facility] [address] [place], [address] Hematocrit (Bld) [Volume fraction] 23.1 % Low 40-54 [facility] Comment on above: Order Comment: REDRA W. PREVIOUS SPECIMEN REJECTED DUE TOCONTAMINATION. 01/10/25410 Eliazar R Mancia. Performed By: #### L 100.0100 ####[facility] [address] [place], [address] Hemoglobin (Bld) [Mass/Vol] 7.4 g/dL Low 13.0-16.5 [facility] Comment on above: Order Comment: REDRA W. PREVIOUS SPECIMEN REJECTED DUE TOCONTAMINATION. 01/10/25410 Eliazar R Mancia. Performed By: #### L 100.0100 ####[facility] [address] [place], [address] IG% 0.500 Normal 0.0-0.9 [facility] Comment on above: Order Comment: REDRA W. PREVIOUS SPECIMEN REJECTED DUE TOCONTAMINATION. 01/10/25410 Eliazar R Mancia. Result Comment: IG% - Immature Granulocytes (promyelocytes, myelocytes andmetamyelocytes) > 1% indicates that a LEFT SHIFT is Present. Performed By: #### L 100.0100 ####[facility] [address] [place], [address] Lymphocytes/100 WBC (Bld) 8.8 % Low 19-41 [facility] Comment on above: Order Comment: REDRA W. PREVIOUS SPECIMEN REJECTED DUE TOCONTAMINATION. 01/10/25410 Eliazar R Mancia. Performed By: #### L 100.0100 ####[facility] [address] [place], [address] MCH (RBC) [Entitic mass] 29.2 pg Normal 27.0-32.0 [facility] Comment on above: Order Comment: REDRA W. PREVIOUS SPECIMEN REJECTED DUE TOCONTAMINATION. 01/10/25410 Eliazar R Mancia. Performed By: #### L 100.0100 ####[facility] [address] [place], [address] MCHC (RBC) [Mass/Vol] 32.0 g/dL Normal 32-36 [facility] Comment on above: Order Comment: REDRA W. PREVIOUS SPECIMEN REJECTED DUE TOCONTAMINATION. 01/10/25410 Eliazar R Mancia. Performed By: #### L 100.0100 ####[facility] [address] [place], [address] MCV (RBC) [Entitic vol] 91.3 fL Normal 80-94 [facility] Comment on above: Order Comment: REDRA W. PREVIOUS SPECIMEN REJECTED DUE TOCONTAMINATION. 01/10/25410 Eliazar R Mancia. Performed By: #### L 100.0100 ####[facility] [address] [place], [address] Monocytes/100 WBC (Bld) 8.2 % Normal 0-10 [facility] Comment on above: Order Comment: REDRA W. PREVIOUS SPECIMEN REJECTED DUE TOCONTAMINATION. 01/10/25410 Eliazar R Mancia. Performed By: #### L 100.0100 ####[facility] [address] [place], [address] Neutrophils/100 WBC (Bld) 76.1 % High 47-70 [facility] Comment on above: Order Comment: REDRA W. PREVIOUS SPECIMEN REJECTED DUE TOCONTAMINATION. 01/10/25410 Eliazar R Mancia. Performed By: #### L 100.0100 ####[facility] [address] [place], [address] Nucleated RBC (Bld) [#/Vol] 0 10*3/uL Normal 0-5 [facility] Comment on above: Order Comment: REDRA W. PREVIOUS SPECIMEN REJECTED DUE TOCONTAMINATION. 01/10/25410 Eliazar R Mancia. Performed By: #### L 100.0100 ####[facility] [address] [place], [address] Platelet mean volume (Bld) [Entitic vol] 12.3 fL High 6.2-12.0 [facility] Comment on above: Order Comment: REDRA W. PREVIOUS SPECIMEN REJECTED DUE TOCONTAMINATION. 01/10/25410 Eliazar R Mancia. Performed By: #### L 100.0100 ####[facility] [address] [place], [address] Platelets (Bld) [#/Vol] 110 10*3/uL Low 150-450 [facility] Comment on above: Order Comment: REDRA W. PREVIOUS SPECIMEN REJECTED DUE TOCONTAMINATION. 01/10/25410 Eliazar R Mancia. Performed By: #### L 100.0100 ####[facility] [address] [place], [address] RBC (Bld) [#/Vol] 2.53 10*6/uL Low 4.6-6.2 [facility] Comment on above: Order Comment: REDRA W. PREVIOUS SPECIMEN REJECTED DUE TOCONTAMINATION. 01/10/25410 Eliazar R Mancia. Performed By: #### L 100.0100 ####[facility] [address] [place], [address] RDW SD 60.1 fl High 35.1-43.9 [facility] Comment on above: Order Comment: REDRA W. PREVIOUS SPECIMEN REJECTED DUE TOCONTAMINATION. 01/10/25410 Eliazar R Mancia. Performed By: #### L 100.0100 ####[facility] [address] [place], [address] WBC (Bld) [#/Vol] 9.6 10*3/uL Normal 4.4-11.0 [facility] Comment on above: Order Comment: REDRA W. PREVIOUS SPECIMEN REJECTED DUE TOCONTAMINATION. 01/10/25410 Eliazar R Mancia. Performed By: #### L 100.0100 ####[facility] [address] [place], [address] DIFF INDICATED? SCAN CRITERIA MET Normal [facility] Comment on above: Result Comment: This specimen has been REJECTED due to Laboratory criteria:Contaminated/Leaked.[facility] has been notified of need of recollection.01/10/25408 Eliazar R Mancia Performed By: #### L 100.0100, L500.4050 ####[facility] [address] [place], [address] Hemoglobin (Bld) [Mass/Vol] 5.5 g/dL Invalid Interpretation Code 13.0-16.5 [facility] Comment on above: Result Comment: This specimen has been REJECTED due to Laboratory criteria:Contaminated/Leaked.[facility] has been notified of need of recollection.01/10/25408 Eliazar R BurnsCRITICAL VALUE CALLED TO PORTIA TAVAREZ (ICU)01/10/25 0336 Henry Calloway.RESULTS READ BACK BY SAME. Performed By: #### L 100.0100, L500.4050 ####[facility] [address] [place], [address] Absolute Lymph 4.28 X10 3/uL Normal 0.83-4.51 [facility] Comment on above: Result Comment: This specimen has been REJECTED due to Laboratory criteria:Contaminated/Leaked.[facility] has been notified of need of recollection.01/10/25408 Eliazar R Mancia Performed By: #### L 100.0100, L500.4050 ####[facility] [address] [place], [address] Absolute Neut 1.7 X10 3/uL Low 2.0-7.7 [facility] Comment on above: Result Comment: This specimen has been REJECTED due to Laboratory criteria:Contaminated/Leaked.[facility] has been notified of need of recollection.01/10/25408 Eliazar R Mancia Performed By: #### L 100.0100, L500.4050 ####[facility] [address] [place], [address] BASO# 0.01 X10 3/uL Normal [facility] Comment on above: Result Comment: This specimen has been REJECTED due to Laboratory criteria:Contaminated/Leaked.[facility] has been notified of need of recollection.01/10/25408 Eliazar R Mancia Performed By: #### L 100.0100, L500.4050 ####[facility] [address] [place], [address] Basophils/100 WBC (Bld) 0.2 % Normal 0-1 [facility] Comment on above: Result Comment: This specimen has been REJECTED due to Laboratory criteria:Contaminated/Leaked.[facility] has been notified of need of recollection.01/10/25408 Eliazar R Mancia Performed By: #### L 100.0100, L500.4050 ####[facility] [address] [place], [address] EOS# 0.15 X10 3/uL Normal [facility] Comment on above: Result Comment: This specimen has been REJECTED due to Laboratory criteria:Contaminated/Leaked.[facility] has been notified of need of recollection.01/10/25408 Eliazar R Mancia Performed By: #### L 100.0100, L500.4050 ####[facility] [address] [place], [address] Eosinophils/100 WBC (Bld) 2.4 % Normal 0-5 [facility] Comment on above: Result Comment: This specimen has been REJECTED due to Laboratory criteria:Contaminated/Leaked.[facility] has been notified of need of recollection.01/10/25408 Eliazar R Mancia Performed By: #### L 100.0100, L500.4050 ####[facility] [address] [place], [address] Erythrocyte distribution width (RBC) [Ratio] 19.2 % High 11.6-14.6 [facility] Comment on above: Result Comment: This specimen has been REJECTED due to Laboratory criteria:Contaminated/Leaked.[facility] has been notified of need of recollection.01/10/25408 Eliazar R Mancia Performed By: #### L 100.0100, L500.4050 ####[facility] [address] [place], [address] Hematocrit (Bld) [Volume fraction] 20.7 % Low 40-54 [facility] Comment on above: Result Comment: This specimen has been REJECTED due to Laboratory criteria:Contaminated/Leaked.[facility] has been notified of need of recollection.01/10/25408 Eliazar R Mancia Performed By: #### L 100.0100, L500.4050 ####[facility] [address] [place], [address] IG# 0.020 X10 3/uL High 0.0-0.0 [facility] Comment on above: Result Comment: This specimen has been REJECTED due to Laboratory criteria:Contaminated/Leaked[place] has been notified of need of recollection.01/10/25408 Eliazar R Mancia Performed By: #### L 100.0100, L500.4050 ####[facility] [address] [place], [address] IG% 0.300 Normal 0.0-0.9 [facility] Comment on above: Result Comment: This specimen has been REJECTED due to Laboratory criteria:Contaminated/Leaked[place] has been notified of need of recollection.01/10/25408 Eliazar R BurnsIG% - Immature Granulocytes (promyelocytes, myelocytes andmetamyelocytes) > 1% indicates that a LEFT SHIFT is Present. Performed By: #### L 100.0100, L500.4050 ####[facility] [address] [place], [address] LYMPH# 4.28 X10 3/ul Normal 0.83-4.51 [facility] Comment on above: Result Comment: This specimen has been REJECTED due to Laboratory criteria:Contaminated/Leaked.[place] has been notified of need of recollection.01/10/25408 Eliazar R Mancia Performed By: #### L 100.0100, L500.4050 ####[facility] [address] [place], [address] Lymphocytes/100 WBC (Bld) 67.8 % High 19-41 [facility] Comment on above: Result Comment: This specimen has been REJECTED due to Laboratory criteria:Contaminated/Leaked.[facility] has been notified of need of recollection.01/10/25408 Eliazar R Mancia Performed By: #### L 100.0100, L500.4050 ####[facility] [address] [place], [address] MCH (RBC) [Entitic mass] 29.4 pg Normal 27.0-32.0 [facility] Comment on above: Result Comment: This specimen has been REJECTED due to Laboratory criteria:Contaminated/Leaked.[facility] has been notified of need of recollection.01/10/25408 Eliazar R Mancia Performed By: #### L 100.0100, L500.4050 ####[facility] [address] [place], [address] MCHC (RBC) [Mass/Vol] 26.6 g/dL Low 32-36 [facility] Comment on above: Result Comment: This specimen has been REJECTED due to Laboratory criteria:Contaminated/Leaked.[facility] has been notified of need of recollection.01/10/25408 Eliazar R Mancia Performed By: #### L 100.0100, L500.4050 ####[facility] [address] [place], [address] MCV (RBC) [Entitic vol] 110.7 fL High 80-94 [facility] Comment on above: Result Comment: This specimen has been REJECTED due to Laboratory criteria:Contaminated/Leaked.[facility] has been notified of need of recollection.01/10/25408 Eliazar R Mancia Performed By: #### L 100.0100, L500.4050 ####[facility] [address] [place], [address] MONO # 0.16 X10 3/uL Normal [facility] Comment on above: Result Comment: This specimen has been REJECTED due to Laboratory criteria:Contaminated/Leaked.[facility] has been notified of need of recollection.01/10/25408 Eliazar R Mancia Performed By: #### L 100.0100, L500.4050 ####[facility] [address] [place], [address] Monocytes/100 WBC (Bld) 2.5 % Normal 0-10 [facility] Comment on above: Result Comment: This specimen has been REJECTED due to Laboratory criteria:Contaminated/Leaked.[facility] has been notified of need of recollection.01/10/25408 Eliazar R Mancia Performed By: #### L 100.0100, L500.4050 ####[facility] [address] [place], [address] Neutrophil # 1.69 X10 3/uL Low 2.7-7.7 [facility] Comment on above: Result Comment: This specimen has been REJECTED due to Laboratory criteria:Contaminated/Leaked.[facility] has been notified of need of recollection.01/10/25408 Eliazar R Mancia Performed By: #### L 100.0100, L500.4050 ####[facility] [address] [place], [address] Neutrophils/100 WBC (Bld) 26.8 % Low 47-70 [facility] Comment on above: Result Comment: This specimen has been REJECTED due to Laboratory criteria:Contaminated/Leaked.[facility] has been notified of need of recollection.01/10/25408 Eliazar R Mancia Performed By: #### L 100.0100, L500.4050 ####[facility] [address] [place], [address] Nucleated RBC (Bld) [#/Vol] 0 10*3/uL Normal 0-5 [facility] Comment on above: Result Comment: This specimen has been REJECTED due to Laboratory criteria:Contaminated/Leaked.[facility] has been notified of need of recollection.01/10/25408 Eliazar R Mancia Performed By: #### L 100.0100, L500.4050 ####[facility] [address] [place], [address] Platelet mean volume (Bld) [Entitic vol] 12.2 fL High 6.2-12.0 [facility] Comment on above: Result Comment: This specimen has been REJECTED due to Laboratory criteria:Contaminated/Leaked.[facility] has been notified of need of recollection.01/10/25408 Eliazar R Mancia Performed By: #### L 100.0100, L500.4050 ####[facility] [address] [place], [address] Platelets (Bld) [#/Vol] 97 10*3/uL Low 150-450 [facility] Comment on above: Result Comment: This specimen has been REJECTED due to Laboratory criteria:Contaminated/Leaked.[facility] has been notified of need of recollection.01/10/25408 Eliazar R Mancia Performed By: #### L 100.0100, L500.4050 ####[facility] [address] [place], [address] POSITIVE COUNT YES Abnormal [facility] Comment on above: Result Comment: This specimen has been REJECTED due to Laboratory criteria:Contaminated/Leaked.[facility] has been notified of need of recollection.01/10/25408 Eliazar R Mancia Performed By: #### L 100.0100, L500.4050 ####[facility] [address] [place], [address] POSITIVE MORPH YES Abnormal [facility] Comment on above: Result Comment: This specimen has been REJECTED due to Laboratory criteria:Contaminated/Leaked.[facility] has been notified of need of recollection.01/10/25408 Eliazar R Mancia Performed By: #### L 100.0100, L500.4050 ####[facility] [address] [place], [address] RBC (Bld) [#/Vol] 1.87 10*6/uL Low 4.6-6.2 [facility] Comment on above: Result Comment: This specimen has been REJECTED due to Laboratory criteria:Contaminated/Leaked.[facility] has been notified of need of recollection.01/10/25408 Eliazar R Mancia Performed By: #### L 100.0100, L500.4050 ####[facility] [address] [place], [place], [address] RDW SD 73.4 fl High 35.1-43.9 [facility] Comment on above: Result Comment: This specimen has been REJECTED due to Laboratory criteria:Contaminated/Leaked.[place] has been notified of need of recollection.01/10/25408 Eliazar R Mancia Performed By: #### L 100.0100, L500.4050 ####[facility] [address] [place], [address] WBC (Bld) [#/Vol] 6.3 10*3/uL Normal 4.4-11.0 [facility] Comment on above: Result Comment: This specimen has been REJECTED due to Laboratory criteria:Contaminated/Leaked.[place] has been notified of need of recollection.01/10/25408 Eliazar R Mancia Performed By: #### L 100.0100, L500.4050 ####[facility] [address] [place], [address] Comprehensive Metabolic Prof ilon 01-10-2025 Albumin [Mass/Vol] 2.4 g/dL Low 3.5-5.0 [facility] Comment on above: Order Comment: ROSIO Gupta PREVIOUS SPECIMEN REJECTED DUE TOCONTAMINATION. 01/10/25409 Eliazar R Mancia. Performed By: #### L 500.4050, L501.2300, L501.5200 ####[facility] [address] [place], [address] Albumin/Globulin [Mass ratio] 0.9 {ratio} Normal 0.9-2.4 [facility] Comment on above: Order Comment: REDRA W. PREVIOUS SPECIMEN REJECTED DUE TOCONTAMINATION. 01/10/25409 Eliazar R Mancia. Performed By: #### L 500.4050, L501.2300, L501.5200 ####[facility] [address] [place], [address] ALK PHOS 244 U/L High 40-129 [facility] Comment on above: Order Comment: REDRA W. PREVIOUS SPECIMEN REJECTED DUE TOCONTAMINATION. 01/10/25409 Eliazar R Mancia. Performed By: #### L 500.4050, L501.2300, L501.5200 ####[facility] [address] [place], [address] ALT [Catalytic activity/Vol] 54 U/L High <=46 [facility] Comment on above: Order Comment: REDRA W. PREVIOUS SPECIMEN REJECTED DUE TOCONTAMINATION. 01/10/25409 Eliazar R Mancia. Performed By: #### L 500.4050, L501.2300, L501.5200 ####[facility] [address] [place], [address] AST [Catalytic activity/Vol] 101 U/L High <=37 [facility] Comment on above: Order Comment: REDRA W. PREVIOUS SPECIMEN REJECTED DUE TOCONTAMINATION. 01/10/25409 Eliazar R Mancia. Performed By: #### L 500.4050, L501.2300, L501.5200 ####[facility] [address] [place], [address] Bilirubin [Mass/Vol] 1.57 mg/dL High 0.00-1.30 [facility] Comment on above: Order Comment: REDRA W. PREVIOUS SPECIMEN REJECTED DUE TOCONTAMINATION. 06/09/25 0410 Eliazar R Mancia. Performed By: #### L 500.4050, L501.2300, L501.5200 ####[facility] [address] [place], [address] BUN/CRE 13.7 RATIO Normal 10-20 [facility] Comment on above: Order Comment: REDRA W. PREVIOUS SPECIMEN REJECTED DUE TOCONTAMINATION. 01/10/25409 Eliazar R Mancia. Performed By: #### L 500.4050, L501.2300, L501.5200 ####[facility] [address] [place], [address] Calcium [Mass/Vol] 7.8 mg/dL Normal 7.6-11.0 [facility] Comment on above: Order Comment: REDRA W. PREVIOUS SPECIMEN REJECTED DUE TOCONTAMINATION. 01/10/25409 Eliazar R Mancia. Performed By: #### L 500.4050, L501.2300, L501.5200 ####[facility] [address] [place], [address] Chloride [Moles/Vol] 101 mmol/L Normal 98-108 [facility] Comment on above: Order Comment: REDRA W. PREVIOUS SPECIMEN REJECTED DUE TOCONTAMINATION. 01/10/25409 Eliazar R Mancia. Performed By: #### L 500.4050, L501.2300, L501.5200 ####[facility] [address] [place], [address] CO2 [Moles/Vol] 13.1 mmol/L Low 21.0-32.0 [facility] Comment on above: Order Comment: REDRA W. PREVIOUS SPECIMEN REJECTED DUE TOCONTAMINATION. 01/10/25409 Eliazar R Mancia. Performed By: #### L 500.4050, L501.2300, L501.5200 ####[facility] [address] [place], [address] Creatinine [Mass/Vol] 1.95 mg/dL High 0.70-1.20 [facility] Comment on above: Order Comment: REDRA W. PREVIOUS SPECIMEN REJECTED DUE TOCONTAMINATION. 01/10/25409 Eliazar R Mancia. Performed By: #### L 500.4050, L501.2300, L501.5200 ####[facility] [address] [place], [address] ECRCL 45.71 ml/min Low 50-250 [facility] Comment on above: Order Comment: REDRA W. PREVIOUS SPECIMEN REJECTED DUE TOCONTAMINATION. 01/10/25409 Eliazar R Mancia. Performed By: #### L 500.4050, L501.2300, L501.5200 ####[facility] [address] [place], [address] GAP 15 Normal 5-15 [facility] Comment on above: Order Comment: REDRA W. PREVIOUS SPECIMEN REJECTED DUE TOCONTAMINATION. 01/10/25409 Eliazar R Mancia. Performed By: #### L 500.4050, L501.2300, L501.5200 ####[facility] [address] [place], [address] GFR/1.73 sq M.predicted among non-blacks MDRD (S/P/Bld) [Vol rate/Area] 39 mL/min/{1.73_m2} Low >60 [facility] Comment on above: Order Comment: REDRA W. PREVIOUS SPECIMEN REJECTED DUE TOCONTAMINATION. 01/10/25409 Eliazar R Mancia. Result Comment: mL/m in/1.73m2 CKD-EPI Creatinine Equation (2020) Performed By: #### L 500.4050, L501.2300, L501.5200 ####[facility] [address] [place], [address] Globulin (S) [Mass/Vol] 2.6 g/dL Normal 2.2-4.2 [facility] Comment on above: Order Comment: REDRA W. PREVIOUS SPECIMEN REJECTED DUE TOCONTAMINATION. 01/10/25409 Eliazar R Mancia. Performed By: #### L 500.4050, L501.2300, L501.5200 ####[facility] [address] [place], [address] Glucose [Mass/Vol] 247 mg/dL High 70-99 [facility] Comment on above: Order Comment: REDRA W. PREVIOUS SPECIMEN REJECTED DUE TOCONTAMINATION. 01/10/25409 Eliazar R Mancia. Performed By: #### L 500.4050, L501.2300, L501.5200 ####[facility] [address] [place], [address] Potassium [Moles/Vol] 3.4 mmol/L Normal 3.3-5.1 [facility] Comment on above: Order Comment: REDRA W. PREVIOUS SPECIMEN REJECTED DUE TOCONTAMINATION. 01/10/25409 Eliazar R Mancia. Performed By: #### L 500.4050, L501.2300, L501.5200 ####[facility] [address] [place], [address] Sodium [Moles/Vol] 129 mmol/L Low 133-145 [facility] Comment on above: Order Comment: REDRA W. PREVIOUS SPECIMEN REJECTED DUE TOCONTAMINATION. 01/10/25409 Eliazar R Mancia. Performed By: #### L 500.4050, L501.2300, L501.5200 ####[facility] [address] [place], [address] T PROT 5.0 g/dL Low 5.9-8.4 [facility] Comment on above: Order Comment: REDRA W. PREVIOUS SPECIMEN REJECTED DUE TOCONTAMINATION. 01/10/25409 Eliazar R Mancia. Performed By: #### L 500.4050, L501.2300, L501.5200 ####[facility] [address] [place], [address] Urea nitrogen [Mass/Vol] 27 mg/dL High 4-19 [facility] Comment on above: Order Comment: ROSIO W. PREVIOUS SPECIMEN REJECTED DUE TOCONTAMINATION. 01/10/25409 Eliazar R Mancia. Performed By: #### L 500.4050, L501.2300, L501.5200 ####[facility] [address] [place], [address] ALB Normal 3.5-5.0 [facility] Comment on above: Result Comment: This specimen has been REJECTED due to Laboratory criteria:Contaminated/Leaked.[facility] has been notified of need of recollection.01/10/25408 Eliazar R Mancia Performed By: #### L 100.0100, L500.4050 ####[facility] [address] [place], [address] ALK PHOS Normal 40-129 [facility] Comment on above: Result Comment: This specimen has been REJECTED due to Laboratory criteria:Contaminated/Leaked.[facility] has been notified of need of recollection.01/10/25408 Eliazar R Mancia Performed By: #### L 100.0100, L500.4050 ####[facility] [address] [place], [address] ALT Normal <=46 [facility] Comment on above: Result Comment: This specimen has been REJECTED due to Laboratory criteria:Contaminated/Leaked.[facility] has been notified of need of recollection.01/10/25408 Eliazar R Mancia Performed By: #### L 100.0100, L500.4050 ####[facility] [address] [place], [address] AST Normal <=37 [facility] Comment on above: Result Comment: This specimen has been REJECTED due to Laboratory criteria:Contaminated/Leaked.[facility] has been notified of need of recollection.01/10/25408 Eliazar R Mancia Performed By: #### L 100.0100, L500.4050 ####[facility] [address] [place], [address] BUN Normal 4-19 [facility] Comment on above: Result Comment: This specimen has been REJECTED due to Laboratory criteria:Contaminated/Leaked.[facility] has been notified of need of recollection.01/10/25408 Eliazar R Mancia Performed By: #### L 100.0100, L500.4050 ####[facility] [address] [facility] [address] BUN/CRE Normal 10-20 [facility] Comment on above: Result Comment: This specimen has been REJECTED due to Laboratory criteria:Contaminated/Leaked.[facility] has been notified of need of recollection.01/10/25408 Eliazar R Mancai Performed By: #### L 100.0100, L500.4050 ####[facility] [address] [facility] [address] Calcium Normal 7.6-11.0 [facility] Comment on above: Result Comment: This specimen has been REJECTED due to Laboratory criteria:Contaminated/Leaked.[facility] has been notified of need of recollection.01/10/25408 Eliazar R Mancia Performed By: #### L 100.0100, L500.4050 ####[facility] [address] [place], [address] CL Normal 98-108 [facility] Comment on above: Result Comment: This specimen has been REJECTED due to Laboratory criteria:Contaminated/Leaked.[facility] has been notified of need of recollection.01/10/25408 Eliazar R Mancia Performed By: #### L 100.0100, L500.4050 ####[facility] [address] [place], [address] CO2 Normal 21.0-32.0 [facility] Comment on above: Result Comment: This specimen has been REJECTED due to Laboratory criteria:Contaminated/Leaked.[facility] has been notified of need of recollection.06/09/25 0409 Eliazar R Mancia Performed By: #### L 100.0100, L500.4050 ####[facility] [address] [place], [address] CREAT,SERUM Normal 0.70-1.20 [facility] Comment on above: Result Comment: This specimen has been REJECTED due to Laboratory criteria:Contaminated/Leaked.[facility] has been notified of need of recollection.01/10/25408 Eliazar R Mancia Performed By: #### L 100.0100, L500.4050 ####[facility] [address] [place], [address] eGFR Normal >60 [facility] Comment on above: Result Comment: This specimen has been REJECTED due to Laboratory criteria:Contaminated/Leaked.[facility] has been notified of need of recollection.01/10/25408 Eliazar R Mancia Performed By: #### L 100.0100, L500.4050 ####[facility] [address] [place], [address] GAP Normal 5-15 [facility] Comment on above: Result Comment: This specimen has been REJECTED due to Laboratory criteria:Contaminated/Leaked.[facility] has been notified of need of recollection.01/10/25408 Eliazar R Mancia Performed By: #### L 100.0100, L500.4050 ####[facility] [address] [place], [address] GLU Normal 70-99 [facility] Comment on above: Result Comment: This specimen has been REJECTED due to Laboratory criteria:Contaminated/Leaked.[facility] has been notified of need of recollection.01/10/25408 Eliazar R Mancia Performed By: #### L 100.0100, L500.4050 ####[facility] [address] [place], [address] Potassium Normal 3.3-5.1 [facility] Comment on above: Result Comment: This specimen has been REJECTED due to Laboratory criteria:Contaminated/Leaked.[facility] has been notified of need of recollection.01/10/25408 Eliazar R Mancia Performed By: #### L 100.0100, L500.4050 ####[facility] [address] [place], [address] T BILI Normal 0.00-1.30 [facility] Comment on above: Result Comment: This specimen has been REJECTED due to Laboratory criteria:Contaminated/Leaked.[facility] has been notified of need of recollection.01/10/25408 Eliazar R Mancia Performed By: #### L 100.0100, L500.4050 ####[facility] [address] [place], [address] T PROT Normal 5.9-8.4 [facility] Comment on above: Result Comment: This specimen has been REJECTED due to Laboratory criteria:Contaminated/Leaked.[facility] has been notified of need of recollection.01/10/25408 Eliazar R Mancia Performed By: #### L 100.0100, L500.4050 ####[facility] [address] [place], [address] Comprehensive Metabolic Profil Normal 133-145 [facility] Comment on above: Result Comment: This specimen has been REJECTED due to Laboratory criteria:Contaminated/Leaked.[facility] has been notified of need of recollection.01/10/25408 Eliazar R Mancia Performed By: #### L 100.0100, L500.4050 ####[facility] [address] [place], [address] Magnesiumon 01-10-2025 Magnesium [Mass/Vol] 1.4 mg/dL Low 1.5-2.2 [facility] Comment on above: Order Comment: ROSIO W. PREVIOUS SPECIMEN REJECTED DUE TOCONTAMINATION. 01/10/25409 Eliazar R Mancia. Performed By: #### L 500.4050, L501.2300, L501.5200 ####[facility] [address] [place], [address] Phosphoruson 01-10-2025 Phosphate [Mass/Vol] 3.5 mg/dL Normal 2.7-4.5 [facility] Comment on above: Order Comment: ROSIO Gupta PREVIOUS SPECIMEN REJECTED DUE TOCONTAMINATION. 01/10/25 0410 Eliazar Carranza Blanche. Performed By: #### L 500.4050, L501.2300, L501.5200 ####[facility] [address] [place], [address] Abdomen/Pelvis without Conto n 01-09-2025 Abdomen/Pelvis without Cont Normal [facility] Absolute lymphocyte countOrd ered By: Breann Mendez on 01-09-2025 Lymphocytes Auto (Unsp spec) [#/Vol] 0.95 10*3/uL 0.83-4.51 [facility] Ammoniaon 01-09-2025 Ammonia (P) [Moles/Vol] 61.1 umol/L High 16-60 [facility] Comment on above: Performed By: #### L 503.5510 ####[facility] [address] [place], [place], [address] Anion gap in Serum or Plasma Ordered By: Breann Mendez on 01-09-2025 Anion gap [Moles/Vol] 13 mmol/L 5-15 [facility] Automated lymphocyte count a s percentage of total leukocytesOrdered By: Breann Mendez on 01-09-2025 Lymphocytes/100 WBC Auto (Unsp spec) 7.2 % Low 19-41 [facility] BUN/creatinine ratioOrdered By: Remus Mendez on 01-09-2025 Urea nitrogen/Creatinine [Mass ratio] 13.4 mg/mg 10- [facility] Basic Metabolic Profile (BMP )on 01-09-2025 BUN/CRE 13.8 RATIO Normal - [facility] Comment on above: Performed By: #### L 506.1001, L500.2500 ####[facility] [address] [place], [address] Calcium [Mass/Vol] 7.7 mg/dL Normal 7.6-11.0 [facility] Comment on above: Performed By: #### L 506.1001, L500.2500 ####[facility] [address] [place], [address] Chloride [Moles/Vol] 106 mmol/L Normal 98-108 [facility] Comment on above: Performed By: #### L 506.1001, L500.2500 ####[facility] [address] [place], [address] CO2 [Moles/Vol] 14.1 mmol/L Low 21.0-32.0 [facility] Comment on above: Performed By: #### L 506.1001, L500.2500 ####[facility] [address] [place], [address] Creatinine [Mass/Vol] 1.78 mg/dL High 0.70-1.20 [facility] Comment on above: Performed By: #### L 506.1001, L500.2500 ####[facility] [address] [place], [address] ECRCL 50.08 ml/min Normal 50-250 [facility] Comment on above: Performed By: #### L 506.1001, L500.2500 ####[facility] [address] [place], [address] GAP 11 Normal 5-15 [facility] Comment on above: Performed By: #### L 506.1001, L500.2500 ####[facility] [address] [place], [address] GFR/1.73 sq M.predicted among non-blacks MDRD (S/P/Bld) [Vol rate/Area] 44 mL/min/{1.73_m2} Low >60 [facility] Comment on above: Result Comment: mL/m in/1.73m2 CKD-EPI Creatinine Equation (2020) Performed By: #### L 506.1001, L500.2500 ####[facility] [address] [place], [address] Glucose [Mass/Vol] 119 mg/dL High 70-99 [facility] Comment on above: Performed By: #### L 506.1001, L500.2500 ####[facility] [address] [place], [address] Potassium [Moles/Vol] 3.7 mmol/L Normal 3.3-5.1 [facility] Comment on above: Performed By: #### L 506.1001, L500.2500 ####[facility] [address] [place], [address] Sodium [Moles/Vol] 132 mmol/L Low 133-145 [facility] Comment on above: Performed By: #### L 506.1001, L500.2500 ####[facility] [address] [place], [address] Urea nitrogen [Mass/Vol] 25 mg/dL High 4-19 [facility] Comment on above: Performed By: #### L 506.1001, L500.2500 ####[facility] [address] [place], [address] Basophil percentageOrdered B y: Remus Ungur on 01-09-2025 Basophils/100 WBC (Bld) 0.4 % 0-1 [facility] Bedside Glucoseon 01-09-2025 FINGERSTICK GLU 143 mg/dL High 74-106 [facility] Comment on above: Result Comment: BRISA GEMENT OF PATIENT CARE PER NURSING PROTOCOL Performed By: #### L 501.080 ####[facility] [address] [place], [address] FINGERSTICK GLU 99 mg/dL Normal 74-106 [facility] Comment on above: Result Comment: BRISA GEMENT OF PATIENT CARE PER NURSING PROTOCOL Performed By: #### L 501.080 ####[facility] [address] [place], [address] Bilirubin Test strip Ql (U)O rdered By: Remus Ungur on 01-09-2025 Bilirubin Ql (U) 1 mg/dL High Negative [facility] Bilirubin, totalOrdered By: Remus Ungur on 01-09-2025 Bilirubin [Mass/Vol] 1.15 mg/dL 0.00-1.30 [facility] Blood cultureOrdered By: Rem us Ungur on 01-09-2025 Bacteria identified Cx Nom (Bld) No growth in 5 days. [facility] Bacteria identified Cx Nom (Bld) No growth in 5 days. [facility] CBC W/Diff, Automatedon Absolute Lymph 0.95 X10 3/uL Normal 0.83-4.51 [facility] Comment on above: Performed By: #### L 500.4050, L503.6005, L100.0100 ####[facility] [address] [place], [address] Absolute Neut 10.6 X10 3/uL High 2.0-7.7 [facility] Comment on above: Performed By: #### L 500.4050, L503.6005, L100.0100 ####[facility] [address] [place], [address] Basophils/100 WBC (Bld) 0.4 % Normal 0-1 [facility] Comment on above: Performed By: #### L 500.4050, L503.6005, L100.0100 ####[facility] [address] [place], [address] Eosinophils/100 WBC (Bld) 4.2 % Normal 0-5 [facility] Comment on above: Performed By: #### L 500.4050, L503.6005, L100.0100 ####[facility] [address] [place], [address] Erythrocyte distribution width (RBC) [Ratio] 18.1 % High 11.6-14.6 [facility] Comment on above: Performed By: #### L 500.4050, L503.6005, L100.0100 ####[facility] [address] [place], [address] Hematocrit (Bld) [Volume fraction] 24.3 % Low 40-54 [facility] Comment on above: Performed By: #### L 500.4050, L503.6005, L100.0100 ####[facility] [address] [place], [address] Hemoglobin (Bld) [Mass/Vol] 7.9 g/dL Low 13.0-16.5 [facility] Comment on above: Performed By: #### L 500.4050, L503.6005, L100.0100 ####[facility] [address] [place], [address] IG% 0.900 Normal 0.0-0.9 [facility] Comment on above: Result Comment: IG% - Immature Granulocytes (promyelocytes, myelocytes andmetamyelocytes) > 1% indicates that a LEFT SHIFT is Present. Performed By: #### L 500.4050, L503.6005, L100.0100 ####[facility] [address] [place], [address] Lymphocytes/100 WBC (Bld) 7.2 % Low 19-41 [facility] Comment on above: Performed By: #### L 500.4050, L503.6005, L100.0100 ####[facility] [address] [place], [address] MCH (RBC) [Entitic mass] 29.4 pg Normal 27.0-32.0 [facility] Comment on above: Performed By: #### L 500.4050, L503.6005, L100.0100 ####[facility] [address] [place], [address] MCHC (RBC) [Mass/Vol] 32.5 g/dL Normal 32-36 [facility] Comment on above: Performed By: #### L 500.4050, L503.6005, L100.0100 ####[facility] [address] [place], [address] MCV (RBC) [Entitic vol] 90.3 fL Normal 80-94 [facility] Comment on above: Performed By: #### L 500.4050, L503.6005, L100.0100 ####[facility] [address] [place], [address] Monocytes/100 WBC (Bld) 6.7 % Normal 0-10 [facility] Comment on above: Performed By: #### L 500.4050, L503.6005, L100.0100 ####[facility] [address] [place], [address] Neutrophils/100 WBC (Bld) 80.6 % High 47-70 [facility] Comment on above: Performed By: #### L 500.4050, L503.6005, L100.0100 ####[facility] [address] [place], [address] Nucleated RBC (Bld) [#/Vol] 0 10*3/uL Normal 0-5 [facility] Comment on above: Performed By: #### L 500.4050, L503.6005, L100.0100 ####[facility] [address] [place], [address] Platelet mean volume (Bld) [Entitic vol] 11.7 fL Normal 6.2-12.0 [facility] Comment on above: Performed By: #### L 500.4050, L503.6005, L100.0100 ####[facility] [address] [place], [address] Platelets (Bld) [#/Vol] 114 10*3/uL Low 150-450 [facility] Comment on above: Performed By: #### L 500.4050, L503.6005, L100.0100 ####[facility] [address] [place], [address] RBC (Bld) [#/Vol] 2.69 10*6/uL Low 4.6-6.2 [facility] Comment on above: Performed By: #### L 500.4050, L503.6005, L100.0100 ####[facility] [address] [place], [address] RDW SD 57.5 fl High 35.1-43.9 [facility] Comment on above: Performed By: #### L 500.4050, L503.6005, L100.0100 ####[facility] [address] [place], [address] WBC (Bld) [#/Vol] 13.2 10*3/uL High 4.4-11.0 [facility] Comment on above: Performed By: #### L 500.4050, L503.6005, L100.0100 ####[facility] [address] [place], [address] CO2 (BldV) [Moles/Vol]Ordere d By: Yaritza Leo on 01-09-2025 CO2 [Moles/Vol] 15 mmol/L Low 23-33 [facility] CPK Total, Creatine Kinaseon 01-09-2025 CPK TOTAL 34 U/L Normal 24-195 [facility] Comment on above: Performed By: #### L 501.3620 ####[facility] [address] [place], [address] Carbon dioxide, total [Moles /volume] in Central venous bloodOrdered By: Breann Mendez on 01-09-2025 CO2 [Moles/Vol] 13.6 mmol/L Low 21.0-32.0 [facility] Chloride assayOrdered By: Josselyn Mendez on 01-09-2025 Chloride [Moles/Vol] 103 mmol/L 98-108 [facility] Comprehensive Metabolic Prof ilon 01-09-2025 Albumin [Mass/Vol] 2.4 g/dL Low 3.5-5.0 [facility] Comment on above: Performed By: #### L 500.4050, L503.6005, L100.0100 ####[facility] [address] [place], [address] Albumin/Globulin [Mass ratio] 0.8 {ratio} Low 0.9-2.4 [facility] Comment on above: Performed By: #### L 500.4050, L503.6005, L100.0100 ####[facility] [address] [place], [address] ALK PHOS 196 U/L High 40-129 [facility] Comment on above: Performed By: #### L 500.4050, L503.6005, L100.0100 ####[facility] [address] [place], [address] ALT [Catalytic activity/Vol] 42 U/L Normal <=46 [facility] Comment on above: Performed By: #### L 500.4050, L503.6005, L100.0100 ####[facility] [address] [place], [address] AST [Catalytic activity/Vol] 68 U/L High <=37 [facility] Comment on above: Performed By: #### L 500.4050, L503.6005, L100.0100 ####[facility] [address] [place], [address] Bilirubin [Mass/Vol] 1.15 mg/dL Normal 0.00-1.30 [facility] Comment on above: Performed By: #### L 500.4050, L503.6005, L100.0100 ####[facility] [address] [place], [address] BUN/CRE 13.4 RATIO Normal 10-20 [facility] Comment on above: Performed By: #### L 500.4050, L503.6005, L100.0100 ####[facility] [address] [place], [address] Calcium [Mass/Vol] 8.4 mg/dL Normal 7.6-11.0 [facility] Comment on above: Performed By: #### L 500.4050, L503.6005, L100.0100 ####[facility] [address] [place], [address] Chloride [Moles/Vol] 103 mmol/L Normal 98-108 [facility] Comment on above: Performed By: #### L 500.4050, L503.6005, L100.0100 ####[facility] [address] [place], [address] CO2 [Moles/Vol] 13.6 mmol/L Low 21.0-32.0 [facility] Comment on above: Performed By: #### L 500.4050, L503.6005, L100.0100 ####[facility] [address] [place], [address] Creatinine [Mass/Vol] 1.77 mg/dL High 0.70-1.20 [facility] Comment on above: Performed By: #### L 500.4050, L503.6005, L100.0100 ####[facility] [address] [place], [address] ECRCL 50.61 ml/min Normal 50-250 [facility] Comment on above: Performed By: #### L 500.4050, L503.6005, L100.0100 ####[facility] [address] [place], [address] GAP 13 Normal 5-15 [facility] Comment on above: Performed By: #### L 500.4050, L503.6005, L100.0100 ####[facility] [address] [place], [address] GFR/1.73 sq M.predicted among non-blacks MDRD (S/P/Bld) [Vol rate/Area] 44 mL/min/{1.73_m2} Low >60 [facility] Comment on above: Result Comment: mL/m in/1.73m2 CKD-EPI Creatinine Equation (2020) Performed By: #### L 500.4050, L503.6005, L100.0100 ####[facility] [address] [place], [address] Globulin (S) [Mass/Vol] 2.9 g/dL Normal 2.2-4.2 [facility] Comment on above: Performed By: #### L 500.4050, L503.6005, L100.0100 ####[facility] [address] [place], [address] Glucose [Mass/Vol] 149 mg/dL High 70-99 [facility] Comment on above: Performed By: #### L 500.4050, L503.6005, L100.0100 ####[facility] [address] [place], [address] Potassium [Moles/Vol] 3.6 mmol/L Normal 3.3-5.1 [facility] Comment on above: Performed By: #### L 500.4050, L503.6005, L100.0100 ####[facility] [address] [place], [address] Sodium [Moles/Vol] 129 mmol/L Low 133-145 [facility] Comment on above: Performed By: #### L 500.4050, L503.6005, L100.0100 ####[facility] [address] [place], [address] T PROT 5.3 g/dL Low 5.9-8.4 [facility] Comment on above: Performed By: #### L 500.4050, L503.6005, L100.0100 ####[facility] [address] [place], [address] Urea nitrogen [Mass/Vol] 24 mg/dL High 4-19 [facility] Comment on above: Performed By: #### L 500.4050, L503.6005, L100.0100 ####[facility] [address] [place], [address] Consultation - Intensiviston 01-09-2025 Consultation - Strategic Marketing Manager Normal [facility] Emergency Department Summary on 01-09-2025 Emergency Department Summary Normal [facility] Eosinophil percentageOrdered By: Breann Mendez on 01-09-2025 Eosinophils/100 WBC (Bld) 4.2 % 0-5 [facility] Erythrocyte distribution wid th ratioOrdered By: Breann Mendez on 01-09-2025 Erythrocyte distribution width (RBC) [Ratio] 18.1 % High 11.6-14.6 [facility] Erythrocyte distribution wid th standard deviationOrdered By: Breann Mendez on 01-09-2025 Erythrocyte distribution width (RBC) [Ratio] 57.5 fl High 35.1-43.9 [facility] Glomerular filtration rate ( GFR) estimation/1.73 sq m using serum, plasma, or whole bOrdered By: Breann Mendez on 01-09-2025 GFR/1.73 sq M.predicted among non-blacks MDRD (S/P/Bld) [Vol rate/Area] 44 mL/min/{1.73_m2} Low >60 [facility] H AND P Exam - Hospitaliston 01-09-2025 H&P Exam - Hospitalist Normal [facility] Hematocrit Auto (Bld) [Volum e fraction]Ordered By: Breann Mendez on 01-09-2025 Hematocrit (Bld) [Volume fraction] 24.3 % Low 40-54 [facility] Hemoglobin measurementOrdere d By: Breann Vanessa on 01-09-2025 Hemoglobin (Bld) [Mass/Vol] 7.9 g/dL Low 13.0-16.5 [facility] Immature granulocytes/100 WB C Auto (Bld)Ordered By: Breann Mendez on 01-09-2025 Immature granulocytes/100 WBC (Bld) 0.900 % 0.0-0.9 [facility] Ketones Test strip Ql (U)Ord ered By: Breann Mendez on 01-09-2025 Ketones Ql (U) 5 mg/dl High Negative [facility] Lactic Acidon 01-09-2025 Lactate [Moles/Vol] 2.4 mmol/L Invalid Interpretation Code 0.0-2.0 [facility] Comment on above: Result Comment: Crit ical Result(s) Called at: 1829 by:??Yanet RENDON to Kal. Results read back by same. Performed By: #### L 503.6005 ####[facility] [address] [place], [place], [address] Lactate [Moles/Vol] 3.1 mmol/L Invalid Interpretation Code 0.0-2.0 [facility] Comment on above: Order Comment: Y Result Comment: Crit ical Result(s) Called at 1108: by: AL SANZ. ??Results read back by same. Performed By: #### L 500.4050, L503.6005, L100.0100 ####[facility] [address] [facility] [address] M R Staph Aureus DNA by PCRo n 01-09-2025 MRSA DNA ASSAY Negative Normal Negative [facility] Comment on above: Performed By: #### L 8200.1000 ####[facility] [address] [place] [id number] MCV (mean corpuscular volume ) determinationOrdered By: Breann Mendez on 01-09-2025 MCV (RBC) [Entitic vol] 90.3 fL 80-94 [facility] Mean corpuscular hemoglobin (MCH) determinationOrdered By: Breann Mendez on 01-09-2025 MCH (RBC) [Entitic mass] 29.4 pg 27.0-32.0 [facility] Monocyte percentageOrdered B y: Breann Mendez on 01-09-2025 Monocytes/100 WBC (Bld) 6.7 % 0-10 [facility] Mucus LM Ql (Urine sed)Order ed By: Breann Mendez on 01-09-2025 Mucus Ql (Urine sed) 0 SEEN /hpf [facility] Neutrophil percentageOrdered By: Breann Mendez on 01-09-2025 Neutrophils/100 WBC (Bld) 80.6 % High 47-70 [facility] Nitrite Test strip Ql (U)Ord ered By: Breann Mendez on 01-09-2025 Nitrite Ql (U) Negative Negative [facility] No Panel InformationOrdered By: Yaritza Leo on 01-09-2025 TRAMAINE [facility] Not entered [facility] No Panel InformationOrdered By: Breann Mendez on 01-09-2025 68 U/L High <38 [facility] Platelet countOrdered By: Josselyn Mendez on 01-09-2025 Platelets (Bld) [#/Vol] 114 10*3/uL Low 150-450 [facility] Potassium measurement (mass/ volume)Ordered By: Breann Mendez on 01-09-2025 Potassium (Unsp spec) [Mass/Vol] 3.6 mmol/L 3.3-5.1 [facility] Protein Test strip Ql (U)Ord ered By: Breann Mendez on 01-09-2025 Protein Ql (U) 500 mg/dl High Negative [facility] RBC Auto (Bld) [#/Vol]Ordere d By: Breann Mendez on 01-09-2025 RBC (Bld) [#/Vol] 2.69 10*6/uL Low 4.6-6.2 [facility] Serum creatinine measurement (mass/volume)Ordered By: Breann Mendez on 01-09-2025 Creatinine [Mass/Vol] 1.77 mg/dL High 0.70-1.20 [facility] Serum globulin measurementOr dered By: Breann Mendez on 01-09-2025 Globulin (S) [Mass/Vol] 2.9 g/dL 2.2-4.2 [facility] Serum glucose measurement (m ass/volume)Ordered By: Breann Mendez on 01-09-2025 Glucose [Mass/Vol] 149 mg/dL High 70-99 [facility] Serum or plasma alanine thomas otransferase (ALT) measurementOrdered By: Breann Mendez on 01-09-2025 ALT [Catalytic activity/Vol] 42 U/L <47 [facility] Serum or plasma albumin tyson urement (mass/volume)Ordered By: Breann Mendez on 01-09-2025 Albumin [Mass/Vol] 2.4 g/dL Low 3.5-5.0 [facility] Serum or plasma albumin/glob ulin mass ratioOrdered By: Breann Mendez on 01-09-2025 Albumin/Globulin [Mass ratio] 0.8 {ratio} Low 0.9-2.4 [facility] Serum or plasma alkaline kendrick sphatase measurementOrdered By: Breann Mendez on 01-09-2025 ALP [Catalytic activity/Vol] 196 U/L High 40-129 [facility] Serum or plasma calcium tyson urement (mass/volume)Ordered By: Breann Mendez on 01-09-2025 Calcium [Mass/Vol] 8.4 mg/dL 7.6-11.0 [facility] Serum or plasma creatine kin ase activityOrdered By: Yaritza Leo on 01-09-2025 CK [Catalytic activity/Vol] 34 U/L 24-195 [facility] Serum or plasma urea nitroge n measurement (mass/volume)Ordered By: Breann Mendez on 01-09-2025 Urea nitrogen [Mass/Vol] 24 mg/dL High 4-19 [facility] Sodium levelOrdered By: Veena Mendez on 01-09-2025 Sodium [Moles/Vol] 129 mmol/L Low 133-145 [facility] Squamous epithelial cells de tection in urine sediment by light microscopyOrdered By: Remus Ungur on 01-09-2025 Epithelial cells.squamous LM Ql (Urine sed) 0-5 SEEN /hpf 0-5 [facility] Total proteinOrdered By: Rem us Ungur on 01-09-2025 Protein [Mass/Vol] 5.3 g/dL Low 5.9-8.4 [facility] Urinalysis, Completeon 01-09 EPI,SQUAMOUS 0-5 SEEN Normal 0-5 [facility] Comment on above: Order Comment: COLOR OF URINE MAY AFFECT DIPSTICK RESULTS.CLEAN CATCH Performed By: #### L 400.0001 ####[facility] [address] [facility] [address] RBC > 100 SEEN Normal 0-5 [facility] Comment on above: Order Comment: COLOR OF URINE MAY AFFECT DIPSTICK RESULTS.CLEAN CATCH Performed By: #### L 400.0001 ####[facility] [address] [place], [address] WBC 50-100 SEEN Normal 0-5 [facility] Comment on above: Order Comment: COLOR OF URINE MAY AFFECT DIPSTICK RESULTS.CLEAN CATCH Performed By: #### L 400.0001 ####[facility] [address] [place], [address] BACTERIA 0 SEEN Normal None Seen [facility] Comment on above: Order Comment: COLOR OF URINE MAY AFFECT DIPSTICK RESULTS.CLEAN CATCH Performed By: #### L 400.0001 ####[facility] [address] [place], [address] Mucus Ql (Urine sed) 0 SEEN Normal [facility] Comment on above: Order Comment: COLOR OF URINE MAY AFFECT DIPSTICK RESULTS.CLEAN CATCH Performed By: #### L 400.0001 ####[facility] [address] [place], [address] Urine clarityOrdered By: Rem us Ungur on 01-09-2025 Clarity (U) Turbid Clear [facility] Urine color determinationOrd ered By: Breann Mendez on 01-09-2025 Color (U) Red Yellow [facility] Urine cultureOrdered By: Ramona Mendez on 01-09-2025 Bacteria identified Cx Nom (U) Yeast, not Mary albicans Abnormal [facility] Urine glucose detectionOrder ed By: Breann Mendez on 01-09-2025 Glucose Ql (U) Normal mg/dl Normal [facility] Urine leukocyte esterase det ection by dipstickOrdered By: Breann Mendez on 01-09-2025 Leukocyte esterase Test strip Ql (U) 500 /ul High Negative [facility] Urine pHOrdered By: Breann Un gur on 01-09-2025 pH (U) 6.0 [pH] 5.0 - 8.0 [facility] Urine sediment bacteria coun t by microscopy (number/high power field)Ordered By: Breann Mendez on 01-09-2025 Bacteria LM.HPF (Urine sed) [#/Area] 0 /[HPF] None Seen [facility] Urine specific gravity measu rementOrdered By: Breann Mendez on 01-09-2025 Specific gravity (U) [Rel density] 1.015 1.002-1.030 [facility] Urine urobilinogen measureme ntOrdered By: Breann Mendez on 01-09-2025 Urobilinogen Ql (U) Normal mg/dl Normal [facility] Venous Blood Gason Blood Gas Type TRAMAINE Normal [facility] Comment on above: Performed By: #### L 8999.0810 ####[facility] [address] [place], [place], [id number] CO2 [Moles/Vol] 15 mmol/L Low 23-33 [facility] Comment on above: Performed By: #### L 8999.0810 ####[facility] [address] [place], [place], [id number] HCO3 (Bld) [Moles/Vol] 14 mmol/L Low 22-26 [facility] Comment on above: Performed By: #### L 8999.10 ####[facility] [address] [place], [address] O2 Delivery Dev Not entered Normal [facility] Comment on above: Performed By: #### L 9000.0810 ####[facility] [address] [place], [address] SITE Not entered Normal [facility] Comment on above: Performed By: #### L 9000.0810 ####[facility] [address] [place], [address] VBG BE -11 mmol/L Low -1.0-3.5 [facility] Comment on above: Performed By: #### L 9000.0810 ####[facility] [address] [place], [address] VBG pCO2 24.7 mmHg Low 41-51 [facility] Comment on above: Performed By: #### L 9000.0810 ####[facility] [address] [place], [address] VBG pH 7.36 Normal 7.32-7.42 [facility] Comment on above: Performed By: #### L 9000.0810 ####[facility] [address] [place], [address] VBG PO2 49 mmHg High 25-40 [facility] Comment on above: Performed By: #### L 9000.0810 ####[facility] [address] [place], [address] VBG SO2 84 High 50-70 [facility] Comment on above: Performed By: #### L 9000.0810 ####[facility] [address] [place], [address] Venous blood ammonia measure mentOrdered By: Lupillo Robbins on 01-09-2025 Ammonia (P) [Moles/Vol] 61.1 umol/L High 16-60 [facility] Venous blood base excess wei surementOrdered By: Yaritza Leo on 01-09-2025 Base excess Calc (BldV) [Moles/Vol] -11 mmol/L Low -1.0-3.5 [facility] Venous blood bicarbonate wei surementOrdered By: Yaritza Leo on 01-09-2025 HCO3 (Bld) [Moles/Vol] 14 mmol/L Low 22-26 [facility] Venous blood pH measurementO rdered By: Yaritza Leo on 01-09-2025 pH (BldV) 7.36 [pH] 7.32-7.42 [facility] Venous blood partial pressur e of carbon dioxide measurementOrdered By: Yaritza Leo on 01-09-2025 CO2 (BldV) [Partial pressure] 24.7 mm[Hg] Low 41-51 [facility] Venous blood partial pressur e of oxygen measurementOrdered By: Yaritza Leo on 01-09-2025 Oxygen (BldV) [Partial pressure] 49 mm[Hg] High 25-40 [facility] Vitamin D,25 Hydroxyon 01-09 Vitamin D 25-OH 10.0 ng/mL Low 30-100 [facility] Comment on above: Result Comment: Sarah min D StatusDeficiency: <20 ng/mL (50nmol/L)Insufficiency: 20-30 ng/mL (50-75 nmol/L)Sufficiency: 30-100 ng/mL (75-250 nmol/L)Toxicity: >100 ng/mL (>250 nmol/L) Performed By: #### L 506.1001, L500.2500 ####[facility] [address] [place], [address] White blood cell (WBC) count Ordered By: Breann Mendez on 01-09-2025 WBC (Bld) [#/Vol] 13.2 10*3/uL High 4.4-11.0 [facility] White blood cell countOrdere d By: Breann Mendez on 01-09-2025 White blood cell count 50-100 SEEN /hpf 0-5 [facility] Basic Metabolic Profile (BMP )on 01-07-2025 BUN Normal 4-19 [facility] Comment on above: Result Comment: Canc elled via OM: Order cancelled - Patient discharged Performed By: #### L 500.2500, L100.0100 ####[facility] [address] [place], [address] BUN/CRE Normal 10-20 [facility] Comment on above: Result Comment: Canc elled via OM: Order cancelled - Patient discharged Performed By: #### L 500.2500, L100.0100 ####[facility] [address] [place], [address] Calcium Normal 7.6-11.0 [facility] Comment on above: Result Comment: Canc elled via OM: Order cancelled - Patient discharged Performed By: #### L 500.2500, L100.0100 ####[facility] [address] [place], [address] CL Normal 98-108 [facility] Comment on above: Result Comment: Canc elled via OM: Order cancelled - Patient discharged Performed By: #### L 500.2500, L100.0100 ####[facility] [address] [place], [address] CO2 Normal 21.0-32.0 [facility] Comment on above: Result Comment: Canc elled via OM: Order cancelled - Patient discharged Performed By: #### L 500.2500, L100.0100 ####[facility] [address] [place], [address] CREAT,SERUM Normal 0.70-1.20 [facility] Comment on above: Result Comment: Canc elled via OM: Order cancelled - Patient discharged Performed By: #### L 500.2500, L100.0100 ####[facility] [address] [place], [address] eGFR Normal >60 [facility] Comment on above: Result Comment: Canc elled via OM: Order cancelled - Patient discharged Performed By: #### L 500.2500, L100.0100 ####[facility] [address] [place], [address] GAP Normal 5-15 [facility] Comment on above: Result Comment: Canc elled via OM: Order cancelled - Patient discharged Performed By: #### L 500.2500, L100.0100 ####[facility] [address] [place], [address] GLU Normal 70-99 [facility] Comment on above: Result Comment: Canc elled via OM: Order cancelled - Patient discharged Performed By: #### L 500.2500, L100.0100 ####[facility] [address] [place], [address] Potassium Normal 3.3-5.1 [facility] Comment on above: Result Comment: Canc elled via OM: Order cancelled - Patient discharged Performed By: #### L 500.2500, L100.0100 ####[facility] [address] [place], [address] Basic Metabolic Profile (BMP) Normal 133-145 [facility] Comment on above: Result Comment: Canc elled via OM: Order cancelled - Patient discharged Performed By: #### L 500.2500, L100.0100 ####[facility] [address] [place], [address] CBC W/Diff, Automatedon 06-0 -2024 Absolute Neut Normal 2.0-7.7 [facility] Comment on above: Result Comment: Canc elled via OM: Order cancelled - Patient discharged Performed By: #### L 500.2500, L100.0100 ####[facility] [address] [place], [address] HCT Normal 40-54 [facility] Comment on above: Result Comment: Canc elled via OM: Order cancelled - Patient discharged Performed By: #### L 500.2500, L100.0100 ####[facility] [address] [place], [address] HGB Normal 13.0-16.5 [facility] Comment on above: Result Comment: Canc elled via OM: Order cancelled - Patient discharged Performed By: #### L 500.2500, L100.0100 ####[facility] [address] [place], [address] MCH Normal 27.0-32.0 [facility] Comment on above: Result Comment: Canc elled via OM: Order cancelled - Patient discharged Performed By: #### L 500.2500, L100.0100 ####[facility] [address] [place], [address] MCHC Normal 32-36 [facility] Comment on above: Result Comment: Canc elled via OM: Order cancelled - Patient discharged Performed By: #### L 500.2500, L100.0100 ####[facility] [address] [place], [address] MCV Normal 80-94 [facility] Comment on above: Result Comment: Canc elled via OM: Order cancelled - Patient discharged Performed By: #### L 500.2500, L100.0100 ####[facility] [address] [place], [address] NEUT% Normal 47-70 [facility] Comment on above: Result Comment: Canc elled via OM: Order cancelled - Patient discharged Performed By: #### L 500.2500, L100.0100 ####[facility] [address] [place], [address] PLT Normal 150-450 [facility] Comment on above: Result Comment: Canc elled via OM: Order cancelled - Patient discharged Performed By: #### L 500.2500, L100.0100 ####[facility] [address] [place], [address] RBC Normal 4.6-6.2 [facility] Comment on above: Result Comment: Canc elled via OM: Order cancelled - Patient discharged Performed By: #### L 500.2500, L100.0100 ####[facility] [address] [place], [address] RDW CV Normal 11.6-14.6 [facility] Comment on above: Result Comment: Canc elled via OM: Order cancelled - Patient discharged Performed By: #### L 500.2500, L100.0100 ####[facility] [address] [place], [address] RDW SD Normal 35.1-43.9 [facility] Comment on above: Result Comment: Canc elled via OM: Order cancelled - Patient discharged Performed By: #### L 500.2500, L100.0100 ####[facility] [address] [place], [address] WBC Normal 4.4-11.0 [facility] Comment on above: Result Comment: Canc elled via OM: Order cancelled - Patient discharged Performed By: #### L 500.2500, L100.0100 ####[facility] [address] [place], [address] Basic Metabolic Profile (BMP )on 01-06-2025 BUN Normal 4-19 [facility] Comment on above: Result Comment: Canc elled via OM: Order cancelled - Patient discharged Performed By: #### L 100.0100, L500.2500 ####[facility] [address] [place], [address] BUN/CRE Normal 10-20 [facility] Comment on above: Result Comment: Canc elled via OM: Order cancelled - Patient discharged Performed By: #### L 100.0100, L500.2500 ####[facility] [address] [place], [address] Calcium Normal 7.6-11.0 [facility] Comment on above: Result Comment: Canc elled via OM: Order cancelled - Patient discharged Performed By: #### L 100.0100, L500.2500 ####[facility] [address] [place], [address] CL Normal 98-108 [facility] Comment on above: Result Comment: Canc elled via OM: Order cancelled - Patient discharged Performed By: #### L 100.0100, L500.2500 ####[facility] [address] [place], [address] CO2 Normal 21.0-32.0 [facility] Comment on above: Result Comment: Canc elled via OM: Order cancelled - Patient discharged Performed By: #### L 100.0100, L500.2500 ####[facility] [address] [place], [address] CREAT,SERUM Normal 0.70-1.20 [facility] Comment on above: Result Comment: Canc elled via OM: Order cancelled - Patient discharged Performed By: #### L 100.0100, L500.2500 ####[facility] [address] [place], [address] eGFR Normal >60 [facility] Comment on above: Result Comment: Canc elled via OM: Order cancelled - Patient discharged Performed By: #### L 100.0100, L500.2500 ####[facility] [address] [place], [address] GAP Normal 5-15 [facility] Comment on above: Result Comment: Canc elled via OM: Order cancelled - Patient discharged Performed By: #### L 100.0100, L500.2500 ####[facility] [address] [place], [address] GLU Normal 70-99 [facility] Comment on above: Result Comment: Canc elled via OM: Order cancelled - Patient discharged Performed By: #### L 100.0100, L500.2500 ####[facility] [address] [place], [address] Potassium Normal 3.3-5.1 [facility] Comment on above: Result Comment: Canc elled via OM: Order cancelled - Patient discharged Performed By: #### L 100.0100, L500.2500 ####[facility] [address] [place], [address] Basic Metabolic Profile (BMP) Normal 133-145 [facility] Comment on above: Result Comment: Canc elled via OM: Order cancelled - Patient discharged Performed By: #### L 100.0100, L500.2500 ####[facility] [address] [place], [address] CBC W/Diff, Automatedon 06-0 -2024 Absolute Neut Normal 2.0-7.7 [facility] Comment on above: Result Comment: Canc elled via OM: Order cancelled - Patient discharged Performed By: #### L 100.0100, L500.2500 ####[facility] [address] [place], [address] HCT Normal 40-54 [facility] Comment on above: Result Comment: Canc elled via OM: Order cancelled - Patient discharged Performed By: #### L 100.0100, L500.2500 ####[facility] [address] [place], [address] HGB Normal 13.0-16.5 [facility] Comment on above: Result Comment: Canc elled via OM: Order cancelled - Patient discharged Performed By: #### L 100.0100, L500.2500 ####[facility] [address] [place], [address] MCH Normal 27.0-32.0 [facility] Comment on above: Result Comment: Canc elled via OM: Order cancelled - Patient discharged Performed By: #### L 100.0100, L500.2500 ####[facility] [address] [place], [address] MCHC Normal 32-36 [facility] Comment on above: Result Comment: Canc elled via OM: Order cancelled - Patient discharged Performed By: #### L 100.0100, L500.2500 ####[facility] [address] [place], [address] MCV Normal 80-94 [facility] Comment on above: Result Comment: Canc elled via OM: Order cancelled - Patient discharged Performed By: #### L 100.0100, L500.2500 ####[facility] [address] [place], [address] NEUT% Normal 47-70 [facility] Comment on above: Result Comment: Canc elled via OM: Order cancelled - Patient discharged Performed By: #### L 100.0100, L500.2500 ####[facility] [address] [place], [address] PLT Normal 150-450 [facility] Comment on above: Result Comment: Canc elled via OM: Order cancelled - Patient discharged Performed By: #### L 100.0100, L500.2500 ####[facility] [address] [place], [address] RBC Normal 4.6-6.2 [facility] Comment on above: Result Comment: Canc elled via OM: Order cancelled - Patient discharged Performed By: #### L 100.0100, L500.2500 ####[facility] [address] [place], [address] RDW CV Normal 11.6-14.6 [facility] Comment on above: Result Comment: Canc elled via OM: Order cancelled - Patient discharged Performed By: #### L 100.0100, L500.2500 ####[facility] [address] [place], [address] RDW SD Normal 35.1-43.9 [facility] Comment on above: Result Comment: Canc elled via OM: Order cancelled - Patient discharged Performed By: #### L 100.0100, L500.2500 ####[facility] [address] [place], [address] WBC Normal 4.4-11.0 [facility] Comment on above: Result Comment: Canc elled via OM: Order cancelled - Patient discharged Performed By: #### L 100.0100, L500.2500 ####[facility] [address] [place], [address] Absolute lymphocyte countOrd ered By: Hill Acuña on 01-05-2025 Lymphocytes Auto (Unsp spec) [#/Vol] 0.94 10*3/uL 0.83-4.51 [facility] Anion gap in Serum or Plasma Ordered By: Hill Acuña on 01-05-2025 Anion gap [Moles/Vol] 9 mmol/L 5-15 [facility] Automated lymphocyte count a s percentage of total leukocytesOrdered By: Hill Acuña on 01-05-2025 Lymphocytes/100 WBC Auto (Unsp spec) 13.4 % Low 19-41 [facility] BUN/creatinine ratioOrdered By: Hill Acuña on 01-05-2025 Urea nitrogen/Creatinine [Mass ratio] 11.9 mg/mg 10-20 [facility] Basic Metabolic Profile (BMP )on 01-05-2025 BUN/CRE 11.9 RATIO Normal -20 [facility] Comment on above: Performed By: #### L 100.0100, L500.2500 ####[facility] [address] [place], [address] Calcium [Mass/Vol] 7.9 mg/dL Normal 7.6-11.0 [facility] Comment on above: Performed By: #### L 100.0100, L500.2500 ####[facility] [address] [place], [address] Chloride [Moles/Vol] 101 mmol/L Normal 98-108 [facility] Comment on above: Performed By: #### L 100.0100, L500.2500 ####[facility] [address] [place], [address] CO2 [Moles/Vol] 18.5 mmol/L Low 21.0-32.0 [facility] Comment on above: Performed By: #### L 100.0100, L500.2500 ####[facility] [address] [place], [address] Creatinine [Mass/Vol] 0.95 mg/dL Normal 0.70-1.20 [facility] Comment on above: Performed By: #### L 100.0100, L500.2500 ####[facility] [address] [place], [address] ECRCL 95.07 ml/min Normal 50-250 [facility] Comment on above: Performed By: #### L 100.0100, L500.2500 ####[facility] [address] [place], [address] GAP 9 Normal 5-15 [facility] Comment on above: Performed By: #### L 100.0100, L500.2500 ####[facility] [address] [place], [address] GFR/1.73 sq M.predicted among non-blacks MDRD (S/P/Bld) [Vol rate/Area] 92 mL/min/{1.73_m2} Normal >60 [facility] Comment on above: Result Comment: mL/m in/1.73m2 CKD-EPI Creatinine Equation (2020) Performed By: #### L 100.0100, L500.2500 ####[facility] [address] [place], [address] Glucose [Mass/Vol] 356 mg/dL High 70-99 [facility] Comment on above: Performed By: #### L 100.0100, L500.2500 ####[facility] [address] [place], [address] Potassium [Moles/Vol] 3.6 mmol/L Normal 3.3-5.1 [facility] Comment on above: Performed By: #### L 100.0100, L500.2500 ####[facility] [address] [place], [address] Sodium [Moles/Vol] 128 mmol/L Low 133-145 [facility] Comment on above: Performed By: #### L 100.0100, L500.2500 ####[facility] [address] [place], [address] Urea nitrogen [Mass/Vol] 11 mg/dL Normal 4-19 [facility] Comment on above: Performed By: #### L 100.0100, L500.2500 ####[facility] [address] [place], [address] Basophil percentageOrdered B y: Hill Acuña on 01-05-2025 Basophils/100 WBC (Bld) 0.4 % 0-1 [facility] Bedside Glucoseon 01-05-2025 FINGERSTICK GLU 163 mg/dL High 74-106 [facility] Comment on above: Result Comment: BRISA GEMENT OF PATIENT CARE PER NURSING PROTOCOL Performed By: #### L 501.080 ####[facility] [address] [place], [address] FINGERSTICK GLU 191 mg/dL High 74-106 [facility] Comment on above: Result Comment: BRISA GEMENT OF PATIENT CARE PER NURSING PROTOCOL Performed By: #### L 501.080 ####[facility] [address] [place], [address] FINGERSTICK GLU 307 mg/dL High 74-106 [facility] Comment on above: Result Comment: BRISA MOROCHO OF PATIENT CARE PER NURSING PROTOCOL Performed By: #### L 501.080 ####[facility] [address] [place], [address] CBC W/Diff, Automatedon 06-0 4-5 Absolute Lymph 0.94 X10 3/uL Normal 0.83-4.51 [facility] Comment on above: Performed By: #### L 100.0100, L500.2500 ####[facility] [address] [place], [address] Absolute Neut 4.8 X10 3/uL Normal 2.0-7.7 [facility] Comment on above: Performed By: #### L 100.0100, L500.2500 ####[facility] [address] [place], [address] Basophils/100 WBC (Bld) 0.4 % Normal 0-1 [facility] Comment on above: Performed By: #### L 100.0100, L500.2500 ####[facility] [address] [place], [address] Eosinophils/100 WBC (Bld) 5.1 % High 0-5 [facility] Comment on above: Performed By: #### L 100.0100, L500.2500 ####[facility] [address] [place], [address] Erythrocyte distribution width (RBC) [Ratio] 16.4 % High 11.6-14.6 [facility] Comment on above: Performed By: #### L 100.0100, L500.2500 ####[facility] [address] [place], [address] Hematocrit (Bld) [Volume fraction] 22.3 % Low 40-54 [facility] Comment on above: Performed By: #### L 100.0100, L500.2500 ####[facility] [address] [place], [address] Hemoglobin (Bld) [Mass/Vol] 7.5 g/dL Low 13.0-16.5 [facility] Comment on above: Performed By: #### L 100.0100, L500.2500 ####[facility] [address] [place], [address] IG% 0.400 Normal 0.0-0.9 [facility] Comment on above: Result Comment: IG% - Immature Granulocytes (promyelocytes, myelocytes andmetamyelocytes) > 1% indicates that a LEFT SHIFT is Present. Performed By: #### L 100.0100, L500.2500 ####[facility] [address] [place], [address] Lymphocytes/100 WBC (Bld) 13.4 % Low 19-41 [facility] Comment on above: Performed By: #### L 100.0100, L500.2500 ####[facility] [address] [place], [address] MCH (RBC) [Entitic mass] 29.1 pg Normal 27.0-32.0 [facility] Comment on above: Performed By: #### L 100.0100, L500.2500 ####[facility] [address] [place], [address] MCHC (RBC) [Mass/Vol] 33.6 g/dL Normal 32-36 [facility] Comment on above: Performed By: #### L 100.0100, L500.2500 ####[facility] [address] [place], [address] MCV (RBC) [Entitic vol] 86.4 fL Normal 80-94 [facility] Comment on above: Performed By: #### L 100.0100, L500.2500 ####[facility] [address] [place], [address] Monocytes/100 WBC (Bld) 11.6 % High 0-10 [facility] Comment on above: Performed By: #### L 100.0100, L500.2500 ####[facility] [address] [place], [address] Neutrophils/100 WBC (Bld) 69.1 % Normal 47-70 [facility] Comment on above: Performed By: #### L 100.0100, L500.2500 ####[facility] [address] [place], [address] Nucleated RBC (Bld) [#/Vol] 0 10*3/uL Normal 0-5 [facility] Comment on above: Performed By: #### L 100.0100, L500.2500 ####[facility] [address] [place], [address] Platelet mean volume (Bld) [Entitic vol] 11.3 fL Normal 6.2-12.0 [facility] Comment on above: Performed By: #### L 100.0100, L500.2500 ####[facility] [address] [place], [address] Platelets (Bld) [#/Vol] 81 10*3/uL Low 150-450 [facility] Comment on above: Performed By: #### L 100.0100, L500.2500 ####[facility] [address] [place], [address] RBC (Bld) [#/Vol] 2.58 10*6/uL Low 4.6-6.2 [facility] Comment on above: Performed By: #### L 100.0100, L500.2500 ####[facility] [address] [place], [address] RDW SD 51.8 fl High 35.1-43.9 [facility] Comment on above: Performed By: #### L 100.0100, L500.2500 ####[facility] [address] [place], [address] WBC (Bld) [#/Vol] 7.0 10*3/uL Normal 4.4-11.0 [facility] Comment on above: Performed By: #### L 100.0100, L500.2500 ####[facility] [address] [place], [address] Carbon dioxide, total [Moles /volume] in Central venous bloodOrdered By: Hill Acuña on 01-05-2025 CO2 [Moles/Vol] 18.5 mmol/L Low 21.0-32.0 [facility] Chloride assayOrdered By: Kvng Acuña on 01-05-2025 Chloride [Moles/Vol] 101 mmol/L 98-108 [facility] Eosinophil percentageOrdered By: Hill Acuña on 01-05-2025 Eosinophils/100 WBC (Bld) 5.1 % High 0-5 [facility] Erythrocyte distribution wid th ratioOrdered By: Hill Acuña on 01-05-2025 Erythrocyte distribution width (RBC) [Ratio] 16.4 % High 11.6-14.6 [facility] Erythrocyte distribution wid th standard deviationOrdered By: Hill Acuña on 01-05-2025 Erythrocyte distribution width (RBC) [Ratio] 51.8 fl High 35.1-43.9 [facility] Glomerular filtration rate ( GFR) estimation/1.73 sq m using serum, plasma, or whole bOrdered By: Hill Acuña on 01-05-2025 GFR/1.73 sq M.predicted among non-blacks MDRD (S/P/Bld) [Vol rate/Area] 92 mL/min/{1.73_m2} >60 [facility] Glucose measurement at bedsi deOrdered By: Hill Acuña on 01-05-2025 Glucose [Mass/Vol] 163 mg/dL High 74-106 [facility] Glucose [Mass/Vol] 191 mg/dL High 74-106 [facility] Hematocrit Auto (Bld) [Volum e fraction]Ordered By: Hill Acuña on 01-05-2025 Hematocrit (Bld) [Volume fraction] 22.3 % Low 40-54 [facility] Hemoglobin measurementOrdere d By: Hill Acuña on 01-05-2025 Hemoglobin (Bld) [Mass/Vol] 7.5 g/dL Low 13.0-16.5 [facility] Immature granulocytes/100 WB C Auto (Bld)Ordered By: Hill Acuña on 01-05-2025 Immature granulocytes/100 WBC (Bld) 0.400 % 0.0-0.9 [facility] MCV (mean corpuscular volume ) determinationOrdered By: Hill Acuña on 01-05-2025 MCV (RBC) [Entitic vol] 86.4 fL 80-94 [facility] Mean corpuscular hemoglobin (MCH) determinationOrdered By: Hill Acuña on 01-05-2025 MCH (RBC) [Entitic mass] 29.1 pg 27.0-32.0 [facility] Monocyte percentageOrdered B y: Hill Acuña on 01-05-2025 Monocytes/100 WBC (Bld) 11.6 % High 0-10 [facility] Neutrophil percentageOrdered By: Hill Acuña on 01-05-2025 Neutrophils/100 WBC (Bld) 69.1 % 47-70 [facility] Platelet countOrdered By: Kvng Acuña on 01-05-2025 Platelets (Bld) [#/Vol] 81 10*3/uL Low 150-450 [facility] Potassium measurement (mass/ volume)Ordered By: iHll Acuña on 01-05-2025 Potassium (Unsp spec) [Mass/Vol] 3.6 mmol/L 3.3-5.1 [facility] RBC Auto (Bld) [#/Vol]Ordere d By: Hill Acuña on 01-05-2025 RBC (Bld) [#/Vol] 2.58 10*6/uL Low 4.6-6.2 [facility] Serum creatinine measurement (mass/volume)Ordered By: Hill Acuña on 01-05-2025 Creatinine [Mass/Vol] 0.95 mg/dL 0.70-1.20 [facility] Serum glucose measurement (m ass/volume)Ordered By: Hill Acuña on 01-05-2025 Glucose [Mass/Vol] 356 mg/dL High 70-99 [facility] Serum or plasma calcium tyson urement (mass/volume)Ordered By: Hill Acuña on 01-05-2025 Calcium [Mass/Vol] 7.9 mg/dL 7.6-11.0 [facility] Serum or plasma urea nitroge n measurement (mass/volume)Ordered By: Hill Acuña on 01-05-2025 Urea nitrogen [Mass/Vol] 11 mg/dL 4-19 [facility] Sodium levelOrdered By: Paulino Acuña on 01-05-2025 Sodium [Moles/Vol] 128 mmol/L Low 133-145 [facility] White blood cell (WBC) count Ordered By: Hill Acuña on 01-05-2025 WBC (Bld) [#/Vol] 7.0 10*3/uL 4.4-11.0 [facility] Bedside Glucoseon 01-04-2025 FINGERSTICK GLU 369 mg/dL High 74-106 [facility] Comment on above: Result Comment: BRISA GEMENT OF PATIENT CARE PER NURSING PROTOCOL Performed By: #### L 501.080 ####[facility] [address] [facility] [address] FINGERSTICK GLU 320 mg/dL High 74-106 [facility] Comment on above: Result Comment: BRISA GEMENT OF PATIENT CARE PER NURSING PROTOCOL Performed By: #### L 501.080 ####[facility] [address] [facility] [address] FINGERSTICK GLU 256 mg/dL High 74-106 [facility] Comment on above: Result Comment: BRISA GEMENT OF PATIENT CARE PER NURSING PROTOCOL Performed By: #### L 501.080 ####[facility] [address] [facility] [address] FINGERSTICK GLU 331 mg/dL High 74-106 [facility] Comment on above: Result Comment: BRISA GEMENT OF PATIENT CARE PER NURSING PROTOCOL Performed By: #### L 501.080 ####[facility] [address] [place], [address] Bilirubin, totalOrdered By: Hill Acuña on 01-04-2025 Bilirubin [Mass/Vol] 0.90 mg/dL 0.00-1.30 [facility] Blood manual differential co mment interpretation (narrative result)Ordered By: Hill Acuña on 01-04-2025 Manual differential comment Marco Antonio (Bld) [Interp] SCANNED [facility] CBC-Complete Blood Cnt No Di ffon 01-04-2025 Erythrocyte distribution width (RBC) [Ratio] 17.0 % High 11.6-14.6 [facility] Comment on above: Performed By: #### L 100.4500, L500.4050, L100.0500, L501.5200, L501.2300 ####[facility] [address] [place], [address] Hematocrit (Bld) [Volume fraction] 24.6 % Low 40-54 [facility] Comment on above: Performed By: #### L 100.4500, L500.4050, L100.0500, L501.5200, L501.2300 ####[facility] [address] [place], [address] Hemoglobin (Bld) [Mass/Vol] 7.9 g/dL Low 13.0-16.5 [facility] Comment on above: Performed By: #### L 100.4500, L500.4050, L100.0500, L501.5200, L501.2300 ####[facility] [address] [place], [address] MCH (RBC) [Entitic mass] 29.2 pg Normal 27.0-32.0 [facility] Comment on above: Performed By: #### L 100.4500, L500.4050, L100.0500, L501.5200, L501.2300 ####[facility] [address] [place], [address] MCHC (RBC) [Mass/Vol] 32.1 g/dL Normal 32-36 [facility] Comment on above: Performed By: #### L 100.4500, L500.4050, L100.0500, L501.5200, L501.2300 ####[facility] [address] [place], [address] MCV (RBC) [Entitic vol] 90.8 fL Normal 80-94 [facility] Comment on above: Performed By: #### L 100.4500, L500.4050, L100.0500, L501.5200, L501.2300 ####[facility] [address] [place], [address] Platelet mean volume (Bld) [Entitic vol] 12.1 fL High 6.2-12.0 [facility] Comment on above: Performed By: #### L 100.4500, L500.4050, L100.0500, L501.5200, L501.2300 ####[facility] [address] [place], [address] Platelets (Bld) [#/Vol] 87 10*3/uL Low 150-450 [facility] Comment on above: Performed By: #### L 100.4500, L500.4050, L100.0500, L501.5200, L501.2300 ####[facility] [address] [place], [address] RBC (Bld) [#/Vol] 2.71 10*6/uL Low 4.6-6.2 [facility] Comment on above: Performed By: #### L 100.4500, L500.4050, L100.0500, L501.5200, L501.2300 ####[facility] [address] [place], [address] RDW SD 56.2 fl High 35.1-43.9 [facility] Comment on above: Performed By: #### L 100.4500, L500.4050, L100.0500, L501.5200, L501.2300 ####[facility] [address] [place], [address] WBC (Bld) [#/Vol] 6.4 10*3/uL Normal 4.4-11.0 [facility] Comment on above: Performed By: #### L 100.4500, L500.4050, L100.0500, L501.5200, L501.2300 ####[facility] [address] [place], [address] Comprehensive Metabolic Prof ilon 01-04-2025 Albumin [Mass/Vol] 2.4 g/dL Low 3.5-5.0 [facility] Comment on above: Performed By: #### L 100.4500, L500.4050, L100.0500, L501.5200, L501.2300 ####[facility] [address] [place], [address] Albumin/Globulin [Mass ratio] 0.9 {ratio} Normal 0.9-2.4 [facility] Comment on above: Performed By: #### L 100.4500, L500.4050, L100.0500, L501.5200, L501.2300 ####[facility] [address] [place], [address] ALK PHOS 171 U/L High 40-129 [facility] Comment on above: Performed By: #### L 100.4500, L500.4050, L100.0500, L501.5200, L501.2300 ####[facility] [address] [place], [address] ALT [Catalytic activity/Vol] 26 U/L Normal <=46 [facility] Comment on above: Performed By: #### L 100.4500, L500.4050, L100.0500, L501.5200, L501.2300 ####[facility] [address] [place], [address] AST [Catalytic activity/Vol] 54 U/L High <=37 [facility] Comment on above: Performed By: #### L 100.4500, L500.4050, L100.0500, L501.5200, L501.2300 ####[facility] [address] [place], [address] Bilirubin [Mass/Vol] 0.90 mg/dL Normal 0.00-1.30 [facility] Comment on above: Performed By: #### L 100.4500, L500.4050, L100.0500, L501.5200, L501.2300 ####[facility] [address] [place], [address] BUN/CRE 14.6 RATIO Normal 10-20 [facility] Comment on above: Performed By: #### L 100.4500, L500.4050, L100.0500, L501.5200, L501.2300 ####[facility] [address] [place], [address] Calcium [Mass/Vol] 7.9 mg/dL Normal 7.6-11.0 [facility] Comment on above: Performed By: #### L 100.4500, L500.4050, L100.0500, L501.5200, L501.2300 ####[facility] [address] [place], [address] Chloride [Moles/Vol] 103 mmol/L Normal 98-108 [facility] Comment on above: Performed By: #### L 100.4500, L500.4050, L100.0500, L501.5200, L501.2300 ####[facility] [address] [place], [address] CO2 [Moles/Vol] 19.0 mmol/L Low 21.0-32.0 [facility] Comment on above: Performed By: #### L 100.4500, L500.4050, L100.0500, L501.5200, L501.2300 ####[facility] [address] [place], [address] Creatinine [Mass/Vol] 1.03 mg/dL Normal 0.70-1.20 [facility] Comment on above: Performed By: #### L 100.4500, L500.4050, L100.0500, L501.5200, L501.2300 ####[facility] [address] [place], [address] ECRCL 87.82 ml/min Normal 50-250 [facility] Comment on above: Performed By: #### L 100.4500, L500.4050, L100.0500, L501.5200, L501.2300 ####[facility] [address] [place], [address] GAP 9 Normal 5-15 [facility] Comment on above: Performed By: #### L 100.4500, L500.4050, L100.0500, L501.5200, L501.2300 ####[facility] [address] [place], [address] GFR/1.73 sq M.predicted among non-blacks MDRD (S/P/Bld) [Vol rate/Area] 84 mL/min/{1.73_m2} Normal >60 [facility] Comment on above: Result Comment: mL/m in/1.73m2 CKD-EPI Creatinine Equation (2020) Performed By: #### L 100.4500, L500.4050, L100.0500, L501.5200, L501.2300 ####[facility] [address] [place], [address] Globulin (S) [Mass/Vol] 2.9 g/dL Normal 2.2-4.2 [facility] Comment on above: Performed By: #### L 100.4500, L500.4050, L100.0500, L501.5200, L501.2300 ####[facility] [address] [place], [address] Glucose [Mass/Vol] 256 mg/dL High 70-99 [facility] Comment on above: Performed By: #### L 100.4500, L500.4050, L100.0500, L501.5200, L501.2300 ####[facility] [address] [place], [address] Potassium [Moles/Vol] 3.6 mmol/L Normal 3.3-5.1 [facility] Comment on above: Performed By: #### L 100.4500, L500.4050, L100.0500, L501.5200, L501.2300 ####[facility] [address] [place], [address] Sodium [Moles/Vol] 131 mmol/L Low 133-145 [facility] Comment on above: Performed By: #### L 100.4500, L500.4050, L100.0500, L501.5200, L501.2300 ####[facility] [address] [place], [address] T PROT 5.3 g/dL Low 5.9-8.4 [facility] Comment on above: Performed By: #### L 100.4500, L500.4050, L100.0500, L501.5200, L501.2300 ####[facility] [address] [place], [address] Urea nitrogen [Mass/Vol] 15 mg/dL Normal 4-19 [facility] Comment on above: Performed By: #### L 100.4500, L500.4050, L100.0500, L501.5200, L501.2300 ####[facility] [address] [place], [address] Differential Commenton 01-04 SMEAR COMMENT SCANNED Normal [facility] Comment on above: Result Comment: MODE RATE THROMBOCYTOPENIA NOTED Performed By: #### L 100.4500, L500.4050, L100.0500, L501.5200, L501.2300 ####[facility] [address] [place], [address] Magnesiumon 01-04-2025 Magnesium [Mass/Vol] 1.3 mg/dL Low 1.5-2.2 [facility] Comment on above: Performed By: #### L 100.4500, L500.4050, L100.0500, L501.5200, L501.2300 ####[facility] [address] [place], [address] Magnesium measurement (mass/ volume)Ordered By: Hill Acuña on 01-04-2025 Magnesium (Unsp spec) [Mass/Vol] 1.3 mg/dL Low 1.5-2.2 [facility] No Panel InformationOrdered By: Hill Acuña on 01-04-2025 54 U/L High <38 [facility] Phosphoruson 01-04-2025 Phosphate [Mass/Vol] 2.3 mg/dL Low 2.7-4.5 [facility] Comment on above: Performed By: #### L 100.4500, L500.4050, L100.0500, L501.5200, L501.2300 ####[facility] [address] [place], [address] Serum globulin measurementOr dered By: Hill Acuña on 01-04-2025 Globulin (S) [Mass/Vol] 2.9 g/dL 2.2-4.2 [facility] Serum or plasma alanine thomas otransferase (ALT) measurementOrdered By: Hill Acuña on 01-04-2025 ALT [Catalytic activity/Vol] 26 U/L <47 [facility] Serum or plasma albumin tyson urement (mass/volume)Ordered By: Hill Acuña on 01-04-2025 Albumin [Mass/Vol] 2.4 g/dL Low 3.5-5.0 [facility] Serum or plasma albumin/glob ulin mass ratioOrdered By: Hill Acuña on 01-04-2025 Albumin/Globulin [Mass ratio] 0.9 {ratio} 0.9-2.4 [facility] Serum or plasma alkaline kendrick sphatase measurementOrdered By: Hill Acuña on 01-04-2025 ALP [Catalytic activity/Vol] 171 U/L High 40-129 [facility] Total proteinOrdered By: Hugo Acuña on 01-04-2025 Protein [Mass/Vol] 5.3 g/dL Low 5.9-8.4 [facility] Urine Cultureon 01-04-2025 URC Yeast, not Mary albicans [place] Count 11,000-25,000 Normal [facility] Comment on above: Performed By: #### L 400.0001, M100.2200 ####[facility] [address] [place], [address] Basic Metabolic Profile (BMP )on 01-03-2025 BUN/CRE 17.3 RATIO Normal 10-20 [facility] Comment on above: Performed By: #### L 500.2500, L100.0100 ####[facility] [address] [place], [address] Calcium [Mass/Vol] 8.1 mg/dL Normal 7.6-11.0 [facility] Comment on above: Performed By: #### L 500.2500, L100.0100 ####[facility] [address] [place], [address] Chloride [Moles/Vol] 101 mmol/L Normal 98-108 [facility] Comment on above: Performed By: #### L 500.2500, L100.0100 ####[facility] [address] [place], [address] CO2 [Moles/Vol] 18.2 mmol/L Low 21.0-32.0 [facility] Comment on above: Performed By: #### L 500.2500, L100.0100 ####[facility] [address] [place], [address] Creatinine [Mass/Vol] 1.70 mg/dL High 0.70-1.20 [facility] Comment on above: Performed By: #### L 500.2500, L100.0100 ####[facility] [address] [place], [address] ECRCL 52.32 ml/min Normal 50-250 [facility] Comment on above: Performed By: #### L 500.2500, L100.0100 ####[facility] [address] [place], [address] GAP 11 Normal 5-15 [facility] Comment on above: Performed By: #### L 500.2500, L100.0100 ####[facility] [address] [place], [address] GFR/1.73 sq M.predicted among non-blacks MDRD (S/P/Bld) [Vol rate/Area] 46 mL/min/{1.73_m2} Low >60 [facility] Comment on above: Result Comment: mL/m in/1.73m2 CKD-EPI Creatinine Equation (2020) Performed By: #### L 500.2500, L100.0100 ####[facility] [address] [place], [address] Glucose [Mass/Vol] 351 mg/dL High 70-99 [facility] Comment on above: Performed By: #### L 500.2500, L100.0100 ####[facility] [address] [place], [address] Potassium [Moles/Vol] 3.6 mmol/L Normal 3.3-5.1 [facility] Comment on above: Performed By: #### L 500.2500, L100.0100 ####[facility] [address] [place], [address] Sodium [Moles/Vol] 130 mmol/L Low 133-145 [facility] Comment on above: Performed By: #### L 500.2500, L100.0100 ####[facility] [address] [place], [address] Urea nitrogen [Mass/Vol] 29 mg/dL High 4-19 [facility] Comment on above: Performed By: #### L 500.2500, L100.0100 ####[facility] [address] [place], [address] Bedside Glucoseon 01-03-2025 [facility] GLU 356 mg/dL High 74-106 [facility] Comment on above: Result Comment: BRISA GEMENT OF PATIENT CARE PER NURSING PROTOCOL Performed By: #### L 501.080 ####[facility] [address] [place], [address] FINGERSTICK GLU 483 mg/dL Invalid Interpretation Code -[address] [place] [address] Comment on above: Result Comment: Insu jaye GivenMANAGEMENT OF PATIENT CARE PER NURSING PROTOCOL Performed By: #### L 501.080 ####[facility] [address] [place], [address] FINGERSTICK GLU 338 mg/dL High 74-106 [facility] Comment on above: Result Comment: BRISA GEMENT OF PATIENT CARE PER NURSING PROTOCOL Performed By: #### L 501.080 ####[facility] [address] [place], [address] FINGERSTICK GLU 322 mg/dL High 74-106 [facility] Comment on above: Result Comment: BRISA MOROCHO OF PATIENT CARE PER NURSING PROTOCOL Performed By: #### L 501.080 ####[facility] [address] [place], [address] CBC W/Diff, Automatedon 06-0 2-2025 Absolute Lymph 1.13 X10 3/uL Normal 0.83-4.51 [facility] Comment on above: Performed By: #### L 500.2500, L100.0100 ####[facility] [address] [place], [address] Absolute Neut 5.5 X10 3/uL Normal 2.0-7.7 [facility] Comment on above: Performed By: #### L 500.2500, L100.0100 ####[facility] [address] [place], [address] Basophils/100 WBC (Bld) 0.2 % Normal 0-1 [facility] Comment on above: Performed By: #### L 500.2500, L100.0100 ####[facility] [address] [place], [address] Eosinophils/100 WBC (Bld) 6.4 % High 0-5 [facility] Comment on above: Performed By: #### L 500.2500, L100.0100 ####[facility] [address] [place], [address] Erythrocyte distribution width (RBC) [Ratio] 16.6 % High 11.6-14.6 [facility] Comment on above: Performed By: #### L 500.2500, L100.0100 ####[facility] [address] [place], [address] Hematocrit (Bld) [Volume fraction] 24.2 % Low 40-54 [facility] Comment on above: Performed By: #### L 500.2500, L100.0100 ####[facility] [address] [place], [address] Hemoglobin (Bld) [Mass/Vol] 8.0 g/dL Low 13.0-16.5 [facility] Comment on above: Performed By: #### L 500.2500, L100.0100 ####[facility] [address] [place], [address] IG% 0.500 Normal 0.0-0.9 [facility] Comment on above: Result Comment: IG% - Immature Granulocytes (promyelocytes, myelocytes andmetamyelocytes) > 1% indicates that a LEFT SHIFT is Present. Performed By: #### L 500.2500, L100.0100 ####[facility] [address] [place], [address] Lymphocytes/100 WBC (Bld) 13.9 % Low 19-41 [facility] Comment on above: Performed By: #### L 500.2500, L100.0100 ####[facility] [address] [place], [address] MCH (RBC) [Entitic mass] 29.0 pg Normal 27.0-32.0 [facility] Comment on above: Performed By: #### L 500.2500, L100.0100 ####[facility] [address] [place], [address] MCHC (RBC) [Mass/Vol] 33.1 g/dL Normal 32-36 [facility] Comment on above: Performed By: #### L 500.2500, L100.0100 ####[facility] [address] [place], [address] MCV (RBC) [Entitic vol] 87.7 fL Normal 80-94 [facility] Comment on above: Performed By: #### L 500.2500, L100.0100 ####[facility] [address] [place], [address] Monocytes/100 WBC (Bld) 11.5 % High 0-10 [facility] Comment on above: Performed By: #### L 500.2500, L100.0100 ####[facility] [address] [place], [address] Neutrophils/100 WBC (Bld) 67.5 % Normal 47-70 [facility] Comment on above: Performed By: #### L 500.2500, L100.0100 ####[facility] [address] [place], [address] Nucleated RBC (Bld) [#/Vol] 0 10*3/uL Normal 0-5 [facility] Comment on above: Performed By: #### L 500.2500, L100.0100 ####[facility] [address] [place], [address] Platelet mean volume (Bld) [Entitic vol] 12.0 fL Normal 6.2-12.0 [facility] Comment on above: Performed By: #### L 500.2500, L100.0100 ####[facility] [address] [place], [address] Platelets (Bld) [#/Vol] 115 10*3/uL Low 150-450 [facility] Comment on above: Performed By: #### L 500.2500, L100.0100 ####[facility] [address] [place], [address] RBC (Bld) [#/Vol] 2.76 10*6/uL Low 4.6-6.2 [facility] Comment on above: Performed By: #### L 500.2500, L100.0100 ####[facility] [address] [place], [address] RDW SD 53.0 fl High 35.1-43.9 [facility] Comment on above: Performed By: #### L 500.2500, L100.0100 ####[facility] [address] [place], [address] WBC (Bld) [#/Vol] 8.1 10*3/uL Normal 4.4-11.0 [facility] Comment on above: Performed By: #### L 500.2500, L100.0100 ####[facility] [address] [place], [address] Abdomen/Pelvis without Conto n 01-02-2025 Abdomen/Pelvis without Cont Normal [facility] Absolute lymphocyte countOrd ered By: Roddy Reeves on 01-02-2025 Lymphocytes Auto (Unsp spec) [#/Vol] 1.55 10*3/uL 0.83-4.51 [facility] Alcohol, Blood (Medical)-Ser umon 01-02-2025 SERUM ETOH < 10.1 Normal <=10.0 [facility] Comment on above: Result Comment: This test is for medical purposes only. The legaldefinition of intoxication varies according to local law. Performed By: #### L 501.9100 ####[facility] [address] [place], [address] Anion gap in Serum or Plasma Ordered By: Roddy Reeves on 01-02-2025 Anion gap [Moles/Vol] 17 mmol/L High 5-15 [facility] Automated lymphocyte count a s percentage of total leukocytesOrdered By: Roddy Reeves on 01-02-2025 Lymphocytes/100 WBC Auto (Unsp spec) 12.2 % Low 19-41 [facility] BUN/creatinine ratioOrdered By: Roddy Reeves on 01-02-2025 Urea nitrogen/Creatinine [Mass ratio] 12.9 mg/mg 10-20 [facility] Basophil percentageOrdered B y: Roddy Reeves on 01-02-2025 Basophils/100 WBC (Bld) 0.4 % 0-1 [facility] Bedside Glucoseon 01-02-2025 FINGERSTICK GLU 354 mg/dL High 74-106 [facility] Comment on above: Result Comment: BRISA GEMENT OF PATIENT CARE PER NURSING PROTOCOL Performed By: #### L 501.080 ####[facility] [address] [place], [address] FINGERSTICK GLU 363 mg/dL High 74-106 [facility] Comment on above: Result Comment: BRISA GEMENT OF PATIENT CARE PER NURSING PROTOCOL Performed By: #### L 501.080 ####[facility] [address] [place], [address] FINGERSTICK GLU 245 mg/dL High 74-106 [facility] Comment on above: Result Comment: BRISA GEMENT OF PATIENT CARE PER NURSING PROTOCOL Performed By: #### L 501.080 ####[facility] [address] [place], [address] FINGERSTICK GLU 188 mg/dL High 74-106 [facility] Comment on above: Result Comment: BRISA GEMENT OF PATIENT CARE PER NURSING PROTOCOL Performed By: #### L 501.080 ####[facility] [address] [place], [address] Bilirubin Test strip Ql (U)O rdered By: Roddy Reeves on 01-02-2025 Bilirubin Ql (U) Negative Negative [facility] Bilirubin, totalOrdered By: Roddy Reeves on 01-02-2025 Bilirubin [Mass/Vol] 0.90 mg/dL 0.00-1.30 [facility] Brain/Head without Contrasto n 01-02-2025 Brain/Head without Contrast Normal [facility] CBC W/Diff, Automatedon Absolute Lymph 1.55 X10 3/uL Normal 0.83-4.51 [facility] Comment on above: Performed By: #### L 501.2450, L500.4050, L100.0100 ####[facility] [address] [place], [address] Absolute Neut 8.6 X10 3/uL High 2.0-7.7 [facility] Comment on above: Performed By: #### L 501.2450, L500.4050, L100.0100 ####[facility] [address] [place], [address] Basophils/100 WBC (Bld) 0.4 % Normal 0-1 [facility] Comment on above: Performed By: #### L 501.2450, L500.4050, L100.0100 ####[facility] [address] [place], [address] Eosinophils/100 WBC (Bld) 6.9 % High 0-5 [facility] Comment on above: Performed By: #### L 501.2450, L500.4050, L100.0100 ####[facility] [address] [place], [address] Erythrocyte distribution width (RBC) [Ratio] 16.4 % High 11.6-14.6 [facility] Comment on above: Performed By: #### L 501.2450, L500.4050, L100.0100 ####[facility] [address] [place], [address] Hematocrit (Bld) [Volume fraction] 28.0 % Low 40-54 [facility] Comment on above: Performed By: #### L 501.2450, L500.4050, L100.0100 ####[facility] [address] [place], [address] Hemoglobin (Bld) [Mass/Vol] 9.5 g/dL Low 13.0-16.5 [facility] Comment on above: Performed By: #### L 501.2450, L500.4050, L100.0100 ####[facility] [address] [place], [address] IG% 0.600 Normal 0.0-0.9 [facility] Comment on above: Result Comment: IG% - Immature Granulocytes (promyelocytes, myelocytes andmetamyelocytes) > 1% indicates that a LEFT SHIFT is Present. Performed By: #### L 501.2450, L500.4050, L100.0100 ####[facility] [address] [place], [address] Lymphocytes/100 WBC (Bld) 12.2 % Low 19-41 [facility] Comment on above: Performed By: #### L 501.2450, L500.4050, L100.0100 ####[facility] [address] [place], [address] MCH (RBC) [Entitic mass] 29.6 pg Normal 27.0-32.0 [facility] Comment on above: Performed By: #### L 501.2450, L500.4050, L100.0100 ####[facility] [address] [place], [address] MCHC (RBC) [Mass/Vol] 33.9 g/dL Normal 32-36 [facility] Comment on above: Performed By: #### L 501.2450, L500.4050, L100.0100 ####[facility] [address] [place], [address] MCV (RBC) [Entitic vol] 87.2 fL Normal 80-94 [facility] Comment on above: Performed By: #### L 501.2450, L500.4050, L100.0100 ####[facility] [address] [place], [address] Monocytes/100 WBC (Bld) 11.9 % High 0-10 [facility] Comment on above: Performed By: #### L 501.2450, L500.4050, L100.0100 ####[facility] [address] [place], [address] Neutrophils/100 WBC (Bld) 68.0 % Normal 47-70 [facility] Comment on above: Performed By: #### L 501.2450, L500.4050, L100.0100 ####[facility] [address] [place], [address] Nucleated RBC (Bld) [#/Vol] 0 10*3/uL Normal 0-5 [facility] Comment on above: Performed By: #### L 501.2450, L500.4050, L100.0100 ####[facility] [address] [place], [address] Platelet mean volume (Bld) [Entitic vol] 12.1 fL High 6.2-12.0 [facility] Comment on above: Performed By: #### L 501.2450, L500.4050, L100.0100 ####[facility] [address] [place], [address] Platelets (Bld) [#/Vol] 171 10*3/uL Normal 150-450 [facility] Comment on above: Performed By: #### L 501.2450, L500.4050, L100.0100 ####[facility] [address] [place], [address] RBC (Bld) [#/Vol] 3.21 10*6/uL Low 4.6-6.2 [facility] Comment on above: Performed By: #### L 501.2450, L500.4050, L100.0100 ####[facility] [address] [place], [address] RDW SD 51.1 fl High 35.1-43.9 [facility] Comment on above: Performed By: #### L 501.2450, L500.4050, L100.0100 ####[facility] [address] [place], [address] WBC (Bld) [#/Vol] 12.7 10*3/uL High 4.4-11.0 [facility] Comment on above: Performed By: #### L 501.2450, L500.4050, L100.0100 ####[facility] [address] [place], [address] Carbon dioxide, total [Moles /volume] in Central venous bloodOrdered By: Roddy Reeves on 01-02-2025 CO2 [Moles/Vol] 19.6 mmol/L Low 21.0-32.0 [facility] Chloride assayOrdered By: Catrachito Reeves on 01-02-2025 Chloride [Moles/Vol] 95 mmol/L Low 98-108 [facility] Comprehensive Metabolic Prof ilon 01-02-2025 Albumin [Mass/Vol] 2.8 g/dL Low 3.5-5.0 [facility] Comment on above: Performed By: #### L 501.2450, L500.4050, L100.0100 ####[facility] [address] [place], [address] Albumin/Globulin [Mass ratio] 0.8 {ratio} Low 0.9-2.4 [facility] Comment on above: Performed By: #### L 501.2450, L500.4050, L100.0100 ####[facility] [address] [place], [address] ALK PHOS 191 U/L High 40-129 [facility] Comment on above: Performed By: #### L 501.2450, L500.4050, L100.0100 ####[facility] [address] [place], [address] ALT [Catalytic activity/Vol] 23 U/L Normal <=46 [facility] Comment on above: Performed By: #### L 501.2450, L500.4050, L100.0100 ####[facility] [address] [place], [address] AST [Catalytic activity/Vol] 37 U/L Normal <=37 [facility] Comment on above: Performed By: #### L 501.2450, L500.4050, L100.0100 ####[facility] [address] [place], [address] Bilirubin [Mass/Vol] 0.90 mg/dL Normal 0.00-1.30 [facility] Comment on above: Performed By: #### L 501.2450, L500.4050, L100.0100 ####[facility] [address] [place], [address] BUN/CRE 12.9 RATIO Normal 10-20 [facility] Comment on above: Performed By: #### L 501.2450, L500.4050, L100.0100 ####[facility] [address] [place], [address] Calcium [Mass/Vol] 9.0 mg/dL Normal 7.6-11.0 [facility] Comment on above: Performed By: #### L 501.2450, L500.4050, L100.0100 ####[facility] [address] [place], [address] Chloride [Moles/Vol] 95 mmol/L Low 98-108 [facility] Comment on above: Performed By: #### L 501.2450, L500.4050, L100.0100 ####[facility] [address] [place], [address] CO2 [Moles/Vol] 19.6 mmol/L Low 21.0-32.0 [facility] Comment on above: Performed By: #### L 501.2450, L500.4050, L100.0100 ####[facility] [address] [place], [address] Creatinine [Mass/Vol] 3.54 mg/dL High 0.70-1.20 [facility] Comment on above: Performed By: #### L 501.2450, L500.4050, L100.0100 ####[facility] [address] [place], [address] ECRCL 22.75 ml/min Low 50-250 [facility] Comment on above: Performed By: #### L 501.2450, L500.4050, L100.0100 ####[facility] [address] [place], [address] GAP 17 High 5-15 [facility] Comment on above: Performed By: #### L 501.2450, L500.4050, L100.0100 ####[facility] [address] [place], [address] GFR/1.73 sq M.predicted among non-blacks MDRD (S/P/Bld) [Vol rate/Area] 19 mL/min/{1.73_m2} Low >60 [facility] Comment on above: Result Comment: mL/m in/1.73m2 CKD-EPI Creatinine Equation (2020) Performed By: #### L 501.2450, L500.4050, L100.0100 ####[facility] [address] [place], [address] Globulin (S) [Mass/Vol] 3.4 g/dL Normal 2.2-4.2 [facility] Comment on above: Performed By: #### L 501.2450, L500.4050, L100.0100 ####[facility] [address] [place], [address] Glucose [Mass/Vol] 164 mg/dL High 70-99 [facility] Comment on above: Performed By: #### L 501.2450, L500.4050, L100.0100 ####[facility] [address] [place], [address] Potassium [Moles/Vol] 2.6 mmol/L Invalid Interpretation Code 3.3-5.1 [facility] Comment on above: Result Comment: Crit ical Result(s) Called at: 0419 by:??NOREEN DOMINGUEZ Results read back by same. Performed By: #### L 501.2450, L500.4050, L100.0100 ####[facility] [address] [place], [address] Sodium [Moles/Vol] 132 mmol/L Low 133-145 [facility] Comment on above: Performed By: #### L 501.2450, L500.4050, L100.0100 ####[facility] [address] [place], [address] T PROT 6.1 g/dL Normal 5.9-8.4 [facility] Comment on above: Performed By: #### L 501.2450, L500.4050, L100.0100 ####[facility] [address] [place], [address] Urea nitrogen [Mass/Vol] 46 mg/dL High 4-19 [facility] Comment on above: Performed By: #### L 501.2450, L500.4050, L100.0100 ####[facility] [address] [place], [address] Emergency Department Summary on 01-02-2025 Emergency Department Summary Normal [facility] Eosinophil percentageOrdered By: Roddy Reeves on 01-02-2025 Eosinophils/100 WBC (Bld) 6.9 % High 0-5 [facility] Erythrocyte distribution wid th ratioOrdered By: Roddy Reeves on 01-02-2025 Erythrocyte distribution width (RBC) [Ratio] 16.4 % High 11.6-14.6 [facility] Erythrocyte distribution wid th standard deviationOrdered By: Roddy Reeves on 01-02-2025 Erythrocyte distribution width (RBC) [Ratio] 51.1 fl High 35.1-43.9 [facility] Glomerular filtration rate ( GFR) estimation/1.73 sq m using serum, plasma, or whole bOrdered By: Roddy Reeves on 01-02-2025 GFR/1.73 sq M.predicted among non-blacks MDRD (S/P/Bld) [Vol rate/Area] 19 mL/min/{1.73_m2} Low >60 [facility] H AND P Exam - Hospitaliston 01-02-2025 H&P Exam - Hospitalist Normal [facility] Hematocrit Auto (Bld) [Volum e fraction]Ordered By: Roddy Reeves on 01-02-2025 Hematocrit (Bld) [Volume fraction] 28.0 % Low 40-54 [facility] Hemoglobin measurementOrdere d By: Roddy Reeves on 01-02-2025 Hemoglobin (Bld) [Mass/Vol] 9.5 g/dL Low 13.0-16.5 [facility] Immature granulocytes/100 WB C Auto (Bld)Ordered By: Roddy Reeves on 01-02-2025 Immature granulocytes/100 WBC (Bld) 0.600 % 0.0-0.9 [facility] Ketones Test strip Ql (U)Ord ered By: Roddy Reeves on 01-02-2025 Ketones Ql (U) 5 mg/dl High Negative [facility] Lipaseon 01-02-2025 Lipase [Catalytic activity/Vol] 45 U/L Normal 13-75 [facility] Comment on above: Result Comment: Siddhartha bhat note:LIPASE revised reference range effective 22.New Lipase methodology. Expected to produce lower valuesthan the previous assay method.NEW Reference Range: 13 - 75 U/L Performed By: #### L 501.2450, L500.4050, L100.0100 ####[facility] [address] [place], [address] MCV (mean corpuscular volume ) determinationOrdered By: Roddy Reeves on 01-02-2025 MCV (RBC) [Entitic vol] 87.2 fL 80-94 [facility] Magnesiumon 01-02-2025 Magnesium [Mass/Vol] 2.0 mg/dL Normal 1.5-2.2 [facility] Comment on above: Performed By: #### L 501.5200 ####[facility] [address] [place], [place], [id number] Magnesium measurement (mass/ volume)Ordered By: Roddy Reeves on 01-02-2025 Magnesium (Unsp spec) [Mass/Vol] 2.0 mg/dL 1.5-2.2 [facility] Mean corpuscular hemoglobin (MCH) determinationOrdered By: Roddy Reeves on 01-02-2025 MCH (RBC) [Entitic mass] 29.6 pg 27.0-32.0 [facility] Monocyte percentageOrdered B y: Roddy Reeves on 01-02-2025 Monocytes/100 WBC (Bld) 11.9 % High 0-10 [facility] Mucus LM Ql (Urine sed)Order ed By: Roddy Reeves on 01-02-2025 Mucus Ql (Urine sed) 0 SEEN /hpf [facility] Neutrophil percentageOrdered By: Roddy Reeves on 01-02-2025 Neutrophils/100 WBC (Bld) 68.0 % 47-70 [facility] Nitrite Test strip Ql (U)Ord ered By: Roddy Reeves on 01-02-2025 Nitrite Ql (U) Negative Negative [facility] No Panel InformationOrdered By: Roddy Reeves on 01-02-2025 37 U/L <38 [facility] Platelet countOrdered By: Catrachito Reeves on 01-02-2025 Platelets (Bld) [#/Vol] 171 10*3/uL 150-450 [facility] Potassium measurement (mass/ volume)Ordered By: Roddy Reeves on 01-02-2025 Potassium (Unsp spec) [Mass/Vol] 2.6 mmol/L Low 3.3-5.1 [facility] Protein Test strip Ql (U)Ord ered By: Roddy Reeves on 01-02-2025 Protein Ql (U) 100 mg/dl High Negative [facility] RBC Auto (Bld) [#/Vol]Ordere d By: Roddy Reeves on 01-02-2025 RBC (Bld) [#/Vol] 3.21 10*6/uL Low 4.6-6.2 [facility] Serum creatinine measurement (mass/volume)Ordered By: Roddy Reeves on 01-02-2025 Creatinine [Mass/Vol] 3.54 mg/dL High 0.70-1.20 [facility] Serum globulin measurementOr dered By: Roddy Reeves on 01-02-2025 Globulin (S) [Mass/Vol] 3.4 g/dL 2.2-4.2 [facility] Serum glucose measurement (m ass/volume)Ordered By: Roddy Reeves on 01-02-2025 Glucose [Mass/Vol] 164 mg/dL High 70-99 [facility] Serum or plasma alanine thomas otransferase (ALT) measurementOrdered By: Roddy Reeves on 01-02-2025 ALT [Catalytic activity/Vol] 23 U/L <47 [facility] Serum or plasma albumin tyson urement (mass/volume)Ordered By: Roddy Reeves on 01-02-2025 Albumin [Mass/Vol] 2.8 g/dL Low 3.5-5.0 [facility] Serum or plasma albumin/glob ulin mass ratioOrdered By: Roddy Reeves on 01-02-2025 Albumin/Globulin [Mass ratio] 0.8 {ratio} Low 0.9-2.4 [facility] Serum or plasma alkaline kendrick sphatase measurementOrdered By: Roddy Reeves on 01-02-2025 ALP [Catalytic activity/Vol] 191 U/L High 40-129 [facility] Serum or plasma calcium tyson urement (mass/volume)Ordered By: Roddy Reeves on 01-02-2025 Calcium [Mass/Vol] 9.0 mg/dL 7.6-11.0 [facility] Serum or plasma ethanol tyson urement (mass/volume)Ordered By: Roddy Reeves on 01-02-2025 Ethanol [Mass/Vol] mg/dL <10.1 [facility] Serum or plasma urea nitroge n measurement (mass/volume)Ordered By: Roddy Reeves on 01-02-2025 Urea nitrogen [Mass/Vol] 46 mg/dL High 4-19 [facility] Sodium levelOrdered By: Valentín Reeves on 01-02-2025 Sodium [Moles/Vol] 132 mmol/L Low 133-145 [facility] Spine Cervical without Contr ason 01-02-2025 Spine Cervical without Contras Normal [facility] Squamous epithelial cells de tection in urine sediment by light microscopyOrdered By: Roddy Reeves on 01-02-2025 Epithelial cells.squamous LM Ql (Urine sed) 0 SEEN /hpf 0-5 [facility] Total proteinOrdered By: Zoila Reeves on 01-02-2025 Protein [Mass/Vol] 6.1 g/dL 5.9-8.4 [facility] Urinalysis, Completeon 01-02 BACTERIA 3+ /hpf Normal None Seen [facility] Comment on above: Order Comment: COLOR OF URINE MAY AFFECT DIPSTICK RESULTS.CLEAN CATCH Performed By: #### L 400.0001, ####[facility] [address] [place], [address] RBC > 100 SEEN Normal 0-5 [facility] Comment on above: Order Comment: COLOR OF URINE MAY AFFECT DIPSTICK RESULTS.CLEAN CATCH Performed By: #### L 400.0001, ####[facility] [id number] [place], [address] WBC 25-50 SEEN Normal 0-5 [facility] Comment on above: Order Comment: COLOR OF URINE MAY AFFECT DIPSTICK RESULTS.CLEAN CATCH Performed By: #### L 400.0001, ####[facility] [id number] [place], [address] BILIRUBIN URINE Negative Normal Negative [facility] Comment on above: Order Comment: COLOR OF URINE MAY AFFECT DIPSTICK RESULTS.CLEAN CATCH Performed By: #### L 400.0001, ####[facility] [address] [place], [address] Clarity (U) Turbid Normal Clear [facility] Comment on above: Order Comment: COLOR OF URINE MAY AFFECT DIPSTICK RESULTS.CLEAN CATCH Performed By: #### L 400.0001, ####[facility] [address] [place], [address] Color (U) Red Normal Yellow [facility] Comment on above: Order Comment: COLOR OF URINE MAY AFFECT DIPSTICK RESULTS.CLEAN CATCH Performed By: #### L 400.0001, ####[facility] [address] [place], [address] GLUCOSE, UR Normal Normal Normal [facility] Comment on above: Order Comment: COLOR OF URINE MAY AFFECT DIPSTICK RESULTS.CLEAN CATCH Performed By: #### L 400.0001, ####[facility] [address] [place], [address] KETONE UR 5 mg/dl Abnormal Negative [facility] Comment on above: Order Comment: COLOR OF URINE MAY AFFECT DIPSTICK RESULTS.CLEAN CATCH Performed By: #### L 400.0001, ####[facility] [address] [place], [address] LEUK ESTERASE 500 /ul Abnormal Negative [facility] Comment on above: Order Comment: COLOR OF URINE MAY AFFECT DIPSTICK RESULTS.CLEAN CATCH Performed By: #### L 400.0001, ####[facility] [address] [place], [address] Nitrite Ql (U) Negative Normal Negative [facility] Comment on above: Order Comment: COLOR OF URINE MAY AFFECT DIPSTICK RESULTS.CLEAN CATCH Performed By: #### L 400.0001, ####[facility] [address] [place], [address] OCCULT BLOOD-UR 250 /ul Abnormal Negative [facility] Comment on above: Order Comment: COLOR OF URINE MAY AFFECT DIPSTICK RESULTS.CLEAN CATCH Performed By: #### L 400.0001, ####[facility] [address] [place], [address] pH UR 6.0 Normal 5.0 - 8.0 [facility] Comment on above: Order Comment: COLOR OF URINE MAY AFFECT DIPSTICK RESULTS.CLEAN CATCH Performed By: #### L 400.0001, .2199 ####[facility] [address] [place], [address] PROT DIPSTX 100 mg/dl Abnormal Negative [facility] Comment on above: Order Comment: COLOR OF URINE MAY AFFECT DIPSTICK RESULTS.CLEAN CATCH Performed By: #### L 400.0001, .2199 ####[facility] [address] [place], [address] SP.GR. DIPSTX 1.015 Normal 1.002-1.030 [facility] Comment on above: Order Comment: COLOR OF URINE MAY AFFECT DIPSTICK RESULTS.CLEAN CATCH Performed By: #### L 400.0001, ####[facility] [address] [place], [address] UROBILI Normal Normal Normal [facility] Comment on above: Order Comment: COLOR OF URINE MAY AFFECT DIPSTICK RESULTS.CLEAN CATCH Performed By: #### L 400.0001, ####[facility] [address] [place], [address] EPI,SQUAMOUS 0 SEEN Normal 0-5 [facility] Comment on above: Order Comment: COLOR OF URINE MAY AFFECT DIPSTICK RESULTS.CLEAN CATCH Performed By: #### L 400.0001, ####[facility] [address] [place], [address] Mucus Ql (Urine sed) 0 SEEN Normal [facility] Comment on above: Order Comment: COLOR OF URINE MAY AFFECT DIPSTICK RESULTS.CLEAN CATCH Performed By: #### L 400.0001, M1.0 ####[facility] [address] [place], [address] Urine clarityOrdered By: Zoila Reeves on 01-02-2025 Clarity (U) Turbid Clear [facility] Urine color determinationOrd ered By: Roddy Reeves on 01-02-2025 Color (U) Red Yellow [facility] Urine cultureOrdered By: Zoila Reeves on 01-02-2025 Bacteria identified Cx Nom (U) Yeast, not Amry albicans Abnormal [facility] Urine glucose detectionOrder ed By: Roddy Reeves on 01-02-2025 Glucose Ql (U) Normal mg/dl Normal [facility] Urine leukocyte esterase det ection by dipstickOrdered By: Roddy Reeves on 01-02-2025 Leukocyte esterase Test strip Ql (U) 500 /ul High Negative [facility] Urine pHOrdered By: Roddy gonzalez on 01-02-2025 pH (U) 6.0 [pH] 5.0 - 8.0 [facility] Urine sediment bacteria coun t by microscopy (number/high power field)Ordered By: Roddy Reeves on 01-02-2025 Bacteria LM.HPF (Urine sed) [#/Area] 3 /[HPF] None Seen [facility] Urine specific gravity measu rementOrdered By: Roddy Reeves on 01-02-2025 Specific gravity (U) [Rel density] 1.015 1.002-1.030 [facility] Urine urobilinogen measureme ntOrdered By: Roddy Reeves on 01-02-2025 Urobilinogen Ql (U) Normal mg/dl Normal [facility] Venous blood ammonia measure mentOrdered By: Roddy Reeves on 01-02-2025 Ammonia (P) [Moles/Vol] 40.4 umol/L Normal 16-60 [facility] Comment on above: Performed By: #### L 503.5510 ####[facility] [address] [place], [address] White blood cell (WBC) count Ordered By: Roddy Reeves on 01-02-2025 WBC (Bld) [#/Vol] 12.7 10*3/uL High 4.4-11.0 [facility] White blood cell countOrdere d By: Roddy Reeves on 01-02-2025 White blood cell count 25-50 SEEN /hpf 0-5 [facility] Urine Cultureon 01-01-2025 URC #1 Below infection level. GPC Poss Enterococcus sp [place] Count 1000-10,000 Mixed Gram Positive Organisms Mixed Gram Positive Organisms MIXC Mixed contaminants. Submit a new specimen if indicated. Normal [facility] Comment on above: Performed By: #### M 100.2200 ####[facility] [address] [place], [address] 12 Lead EKGon 12-30-2024 12 Lead EKG Normal [facility] Absolute lymphocyte countOrd ered By: Minamaría Blood on 12-30-2024 Lymphocytes Auto (Unsp spec) [#/Vol] 1.31 10*3/uL 0.83-4.51 [facility] Anion gap in Serum or Plasma Ordered By: Mina Blood on 12-30-2024 Anion gap [Moles/Vol] 15 mmol/L 5-15 [facility] Automated lymphocyte count a s percentage of total leukocytesOrdered By: Mina Blood on 12-30-2024 Lymphocytes/100 WBC Auto (Unsp spec) 14.0 % Low 19-41 [facility] BUN/creatinine ratioOrdered By: Mina Blood on 12-30-2024 Urea nitrogen/Creatinine [Mass ratio] 14.1 mg/mg 10-20 [facility] Basic Metabolic Profile (BMP )on 12-30-2024 BUN/CRE 14.1 RATIO Normal -20 [facility] Comment on above: Performed By: #### L 100.0100, L501.5200, L501.4021, L500.2500 ####[facility] [address] [place], [address] Calcium [Mass/Vol] 9.1 mg/dL Normal 7.6-11.0 [facility] Comment on above: Performed By: #### L 100.0100, L501.5200, L501.4021, L500.2500 ####[facility] [address] [place], [address] Chloride [Moles/Vol] 91 mmol/L Low 98-108 [facility] Comment on above: Performed By: #### L 100.0100, L501.5200, L501.4021, L500.2500 ####[facility] [address] [place], [address] CO2 [Moles/Vol] 22.1 mmol/L Normal 21.0-32.0 [facility] Comment on above: Performed By: #### L 100.0100, L501.5200, L501.4021, L500.2500 ####[facility] [address] [place], [address] Creatinine [Mass/Vol] 2.05 mg/dL High 0.70-1.20 [facility] Comment on above: Performed By: #### L 100.0100, L501.5200, L501.4021, L500.2500 ####[facility] [address] [place], [address] ECRCL 42.97 ml/min Low 50-250 [facility] Comment on above: Performed By: #### L 100.0100, L501.5200, L501.4021, L500.2500 ####[facility] [address] [place], [address] GAP 15 Normal 5-15 [facility] Comment on above: Performed By: #### L 100.0100, L501.5200, L501.4021, L500.2500 ####[facility] [address] [place], [address] GFR/1.73 sq M.predicted among non-blacks MDRD (S/P/Bld) [Vol rate/Area] 37 mL/min/{1.73_m2} Low >60 [facility] Comment on above: Result Comment: mL/m in/1.73m2 CKD-EPI Creatinine Equation (2020) Performed By: #### L 100.0100, L501.5200, L501.4021, L500.2500 ####[facility] [address] [place], [address] Glucose [Mass/Vol] 608 mg/dL Invalid Interpretation Code 70-99 [facility] Comment on above: Result Comment: Crit ical Result(s) Called at:0218 by: NOREEN TRUONG TO LISIOMARA ??Results read back by same. Performed By: #### L 100.0100, L501.5200, L501.4021, L500.2500 ####[facility] [address] [place], [address] Potassium [Moles/Vol] 3.2 mmol/L Low 3.3-5.1 [facility] Comment on above: Performed By: #### L 100.0100, L501.5200, L501.4021, L500.2500 ####[facility] [address] [place], [address] Sodium [Moles/Vol] 128 mmol/L Low 133-145 [facility] Comment on above: Performed By: #### L 100.0100, L501.5200, L501.4021, L500.2500 ####[facility] [address] [place], [address] Urea nitrogen [Mass/Vol] 29 mg/dL High 4-19 [facility] Comment on above: Performed By: #### L 100.0100, L501.5200, L501.4021, L500.2500 ####[facility] [address] [place], [address] Basophil percentageOrdered B y: Mina Andcliff on 12-30-2024 Basophils/100 WBC (Bld) 0.4 % 0-1 [facility] Bedside Glucoseon 12-30-2024 FINGERSTICK GLU 453 mg/dL Invalid Interpretation Code 74-106 [facility] Comment on above: Result Comment: BRISA MOROCHO OF PATIENT CARE PER NURSING PROTOCOL Performed By: #### L 501.080 ####[facility] [address] [place], [address] Bilirubin Test strip Ql (U)O rdered By: Mina Blood on 12-30-2024 Bilirubin Ql (U) Negative Negative [facility] CBC W/Diff, Automatedon 05- Absolute Lymph 1.31 X10 3/uL Normal 0.83-4.51 [facility] Comment on above: Performed By: #### L 100.0100, L501.5200, L501.4021, L500.2500 ####[facility] [address] [place], [address] Absolute Neut 6.5 X10 3/uL Normal 2.0-7.7 [facility] Comment on above: Performed By: #### L 100.0100, L501.5200, L501.4021, L500.2500 ####[facility] [address] [place], [address] Basophils/100 WBC (Bld) 0.4 % Normal 0-1 [facility] Comment on above: Performed By: #### L 100.0100, L501.5200, L501.4021, L500.2500 ####[facility] [address] [place], [address] Eosinophils/100 WBC (Bld) 6.2 % High 0-5 [facility] Comment on above: Performed By: #### L 100.0100, L501.5200, L501.4021, L500.2500 ####[facility] [address] [place], [address] Erythrocyte distribution width (RBC) [Ratio] 16.1 % High 11.6-14.6 [facility] Comment on above: Performed By: #### L 100.0100, L501.5200, L501.4021, L500.2500 ####[facility] [address] [place], [address] Hematocrit (Bld) [Volume fraction] 25.8 % Low 40-54 [facility] Comment on above: Performed By: #### L 100.0100, L501.5200, L501.4021, L500.2500 ####[facility] [address] [place], [address] Hemoglobin (Bld) [Mass/Vol] 8.7 g/dL Low 13.0-16.5 [facility] Comment on above: Performed By: #### L 100.0100, L501.5200, L501.4021, L500.2500 ####[facility] [address] [place], [address] IG% 0.600 Normal 0.0-0.9 [facility] Comment on above: Result Comment: IG% - Immature Granulocytes (promyelocytes, myelocytes andmetamyelocytes) > 1% indicates that a LEFT SHIFT is Present. Performed By: #### L 100.0100, L501.5200, L501.4021, L500.2500 ####[facility] [address] [place], [address] Lymphocytes/100 WBC (Bld) 14.0 % Low 19-41 [facility] Comment on above: Performed By: #### L 100.0100, L501.5200, L501.4021, L500.2500 ####[facility] [address] [place], [address] MCH (RBC) [Entitic mass] 29.7 pg Normal 27.0-32.0 [facility] Comment on above: Performed By: #### L 100.0100, L501.5200, L501.4021, L500.2500 ####[facility] [address] [place], [address] MCHC (RBC) [Mass/Vol] 33.7 g/dL Normal 32-36 [facility] Comment on above: Performed By: #### L 100.0100, L501.5200, L501.4021, L500.2500 ####[facility] [address] [place], [address] MCV (RBC) [Entitic vol] 88.1 fL Normal 80-94 [facility] Comment on above: Performed By: #### L 100.0100, L501.5200, L501.4021, L500.2500 ####[facility] [address] [place], [address] Monocytes/100 WBC (Bld) 9.1 % Normal 0-10 [facility] Comment on above: Performed By: #### L 100.0100, L501.5200, L501.4021, L500.2500 ####[facility] [address] [place], [address] Neutrophils/100 WBC (Bld) 69.7 % Normal 47-70 [facility] Comment on above: Performed By: #### L 100.0100, L501.5200, L501.4021, L500.2500 ####[facility] [address] [place], [address] Nucleated RBC (Bld) [#/Vol] 0 10*3/uL Normal 0-5 [facility] Comment on above: Performed By: #### L 100.0100, L501.5200, L501.4021, L500.2500 ####[facility] [address] [place], [address] Platelet mean volume (Bld) [Entitic vol] 13.4 fL High 6.2-12.0 [facility] Comment on above: Performed By: #### L 100.0100, L501.5200, L501.4021, L500.2500 ####[facility] [address] [place], [address] Platelets (Bld) [#/Vol] 131 10*3/uL Low 150-450 [facility] Comment on above: Performed By: #### L 100.0100, L501.5200, L501.4021, L500.2500 ####[facility] [address] [place], [address] RBC (Bld) [#/Vol] 2.93 10*6/uL Low 4.6-6.2 [facility] Comment on above: Performed By: #### L 100.0100, L501.5200, L501.4021, L500.2500 ####[facility] [address] [place], [address] RDW SD 50.9 fl High 35.1-43.9 [facility] Comment on above: Performed By: #### L 100.0100, L501.5200, L501.4021, L500.2500 ####[facility] [address] [place], [address] WBC (Bld) [#/Vol] 9.4 10*3/uL Normal 4.4-11.0 [facility] Comment on above: Performed By: #### L 100.0100, L501.5200, L501.4021, L500.2500 ####[facility] [address] [place], [address] Carbon dioxide, total [Moles /volume] in Central venous bloodOrdered By: Mina Blood on 12-30-2024 CO2 [Moles/Vol] 22.1 mmol/L 21.0-32.0 [facility] Chest PA and Lateralon 12-30 Chest PA and Lateral Normal [facility] Chloride assayOrdered By: Marcella Blood on 12-30-2024 Chloride [Moles/Vol] 91 mmol/L Low 98-108 [facility] Emergency Department Summary on 12-30-2024 Emergency Department Summary Normal [facility] Eosinophil percentageOrdered By: Mina Blood on 12-30-2024 Eosinophils/100 WBC (Bld) 6.2 % High 0-5 [facility] Erythrocyte distribution wid th ratioOrdered By: Mina Blood on 12-30-2024 Erythrocyte distribution width (RBC) [Ratio] 16.1 % High 11.6-14.6 [facility] Erythrocyte distribution wid th standard deviationOrdered By: Mina Blood on 12-30-2024 Erythrocyte distribution width (RBC) [Ratio] 50.9 fl High 35.1-43.9 [facility] Glomerular filtration rate ( GFR) estimation/1.73 sq m using serum, plasma, or whole bOrdered By: Mina Blood on 12-30-2024 GFR/1.73 sq M.predicted among non-blacks MDRD (S/P/Bld) [Vol rate/Area] 37 mL/min/{1.73_m2} Low >60 [facility] Gl[facility] at [facility] deOrdered By: Mina Blood on 12-30-2024 Glucose [Mass/Vol] 453 mg/dL High 74-106 [facility] Hematocrit Auto (Bld) [Volum e fraction]Ordered By: Mina Blood on 12-30-2024 Hematocrit (Bld) [Volume fraction] 25.8 % Low 40-54 [facility] Hemoglobin measurementOrdere d By: Mina Blood on 12-30-2024 Hemoglobin (Bld) [Mass/Vol] 8.7 g/dL Low 13.0-16.5 [facility] Immature granulocytes/100 WB C Auto (Bld)Ordered By: Mina Blood on 12-30-2024 Immature granulocytes/100 WBC (Bld) 0.600 % 0.0-0.9 [facility] Ketones Test strip Ql (U)Ord ered By: Mina Blood on 12-30-2024 Ketones Ql (U) Negative Negative [facility] L499.0042on 12-30-2024 Trop T High Sen 20 ng/L Normal <=22 [facility] Comment on above: Performed By: #### L 499.0042 ####[facility] [address] [place], [address] L501.4021on 12-30-2024 Trop T High Sen 19 ng/L Normal <=22 [facility] Comment on above: Performed By: #### L 100.0100, L501.5200, L501.4021, L500.2500 ####[facility] [address] [place], [address] MCV (mean corpuscular volume ) determinationOrdered By: Mina Blood on 12-30-2024 MCV (RBC) [Entitic vol] 88.1 fL 80-94 [facility] Magnesiumon 12-30-2024 Magnesium [Mass/Vol] 1.3 mg/dL Low 1.5-2.2 [facility] Comment on above: Performed By: #### L 100.0100, L501.5200, L501.4021, L500.2500 ####[facility] [address] [place], [place], [address] Magnesium measurement (mass/ volume)Ordered By: Mina Blood on 12-30-2024 Magnesium (Unsp spec) [Mass/Vol] 1.3 mg/dL Low 1.5-2.2 [facility] Mean corpuscular hemoglobin (MCH) determinationOrdered By: Mina Blood on 12-30-2024 MCH (RBC) [Entitic mass] 29.7 pg 27.0-32.0 [facility] Monocyte percentageOrdered B y: Mina Blood on 12-30-2024 Monocytes/100 WBC (Bld) 9.1 % 0-10 [facility] Mucus LM Ql (Urine sed)Order ed By: Mina Blood on 12-30-2024 Mucus Ql (Urine sed) 0 SEEN /hpf [facility] Neutrophil percentageOrdered By: Mina Blood on 12-30-2024 Neutrophils/100 WBC (Bld) 69.7 % 47-70 [facility] Nitrite Test strip Ql (U)Ord ered By: Mina Blood on 12-30-2024 Nitrite Ql (U) Negative Negative [facility] Platelet countOrdered By: Marcella Blood on 12-30-2024 Platelets (Bld) [#/Vol] 131 10*3/uL Low 150-450 [facility] Potassium measurement (mass/ volume)Ordered By: Mina Blood on 12-30-2024 Potassium (Unsp spec) [Mass/Vol] 3.2 mmol/L Low 3.3-5.1 [facility] Protein Test strip Ql (U)Ord ered By: Mina Blood on 12-30-2024 Protein Ql (U) 100 mg/dl High Negative [facility] RBC Auto (Bld) [#/Vol]Ordere d By: Mina Blood on 12-30-2024 RBC (Bld) [#/Vol] 2.93 10*6/uL Low 4.6-6.2 [facility] Serum creatinine measurement (mass/volume)Ordered By: Mina Blood on 12-30-2024 Creatinine [Mass/Vol] 2.05 mg/dL High 0.70-1.20 [facility] Serum glucose measurement (m ass/volume)Ordered By: Mina Blood on 12-30-2024 Glucose [Mass/Vol] 608 mg/dL High 70-99 [facility] Serum or plasma calcium tyson urement (mass/volume)Ordered By: Mina Blood on 12-30-2024 Calcium [Mass/Vol] 9.1 mg/dL 7.6-11.0 [facility] Serum or plasma urea nitroge n measurement (mass/volume)Ordered By: Mina Blood on 12-30-2024 Urea nitrogen [Mass/Vol] 29 mg/dL High 4-19 [facility] Sodium levelOrdered By: Magen Blood on 12-30-2024 Sodium [Moles/Vol] 128 mmol/L Low 133-145 [facility] Squamous epithelial cells de tection in urine sediment by light microscopyOrdered By: Mina Blood on 12-30-2024 Epithelial cells.squamous LM Ql (Urine sed) 0-5 SEEN /hpf 0-5 [facility] Transitional cells detection in urine sediment by light microscopyOrdered By: Mina Blood on 12-30-2024 Transitional cells LM Ql (Urine sed) 0-5 SEEN /hpf 0-5 [facility] Troponin T.cardiac [Mass/vol ume] in Serum or Plasma by High sensitivity methodOrdered By: Mina Blood on 12-30-2024 Troponin T.cardiac High sensitivity method [Mass/Vol] 20 ng/L <22 [facility] Troponin T.cardiac High sensitivity method [Mass/Vol] 19 ng/L <22 [facility] Urinalysis, Completeon 12-30 BACTERIA 1+ /hpf Normal None Seen [facility] Comment on above: Order Comment: COLOR OF URINE MAY AFFECT DIPSTICK RESULTS.INFANTRY SENIOR SERGEANT TO SPECIFY Performed By: #### L 400.0001 ####[facility] [address] [place], [address] EPI,SQUAMOUS 0-5 SEEN Normal 0-5 [facility] Comment on above: Order Comment: COLOR OF URINE MAY AFFECT DIPSTICK RESULTS.INFANTRY SENIOR SERGEANT TO SPECIFY Performed By: #### L 400.0001 ####[facility] [address] [place], [address] EPI,TRANSITION 0-5 SEEN Normal 0-5 [facility] Comment on above: Order Comment: COLOR OF URINE MAY AFFECT DIPSTICK RESULTS.INFANTRY SENIOR SERGEANT TO SPECIFY Performed By: #### L 400.0001 ####[facility] [address] [place], [address] RBC > 100 SEEN Normal 0-5 [facility] Comment on above: Order Comment: COLOR OF URINE MAY AFFECT DIPSTICK RESULTS.INFANTRY SENIOR SERGEANT TO SPECIFY Performed By: #### L 400.0001 ####[facility] [address] [place], [address] WBC >100 SEEN Normal 0-5 [facility] Comment on above: Order Comment: COLOR OF URINE MAY AFFECT DIPSTICK RESULTS.INFANTRY SENIOR SERGEANT TO SPECIFY Performed By: #### L 400.0001 ####[facility] [address] [place], [address] Mucus Ql (Urine sed) 0 SEEN Normal [facility] Comment on above: Order Comment: COLOR OF URINE MAY AFFECT DIPSTICK RESULTS.INFANTRY SENIOR SERGEANT TO SPECIFY Performed By: #### L 400.0001 ####[facility] [address] [place], [address] Urine clarityOrdered By: Ever Blood on 12-30-2024 Clarity (U) Cloudy Clear [facility] Urine color determinationOrd ered By: Mina Blood on 12-30-2024 Color (U) Lexis Yellow [facility] Urine cultureOrdered By: Ever Blood on 12-30-2024 Bacteria identified Cx Nom (U) GPC Poss Enterococcus sp Abnormal [facility] Bacteria identified Cx Nom (U) Positive Abnormal [facility] Urine glucose detectionOrder ed By: Mina Blood on 12-30-2024 Glucose Ql (U) 1000 mg/dl High Normal [facility] Urine leukocyte esterase det ection by dipstickOrdered By: Mina Blood on 12-30-2024 Leukocyte esterase Test strip Ql (U) 500 /ul High Negative [facility] Urine pHOrdered By: Mina Marte ndes on 12-30-2024 pH (U) 6.5 [pH] 5.0 - 8.0 [facility] Urine sediment bacteria coun t by microscopy (number/high power field)Ordered By: Mina Blood on 12-30-2024 Bacteria LM.HPF (Urine sed) [#/Area] 1 /[HPF] None Seen [facility] Urine specific gravity measu rementOrdered By: Mina Blood on 12-30-2024 Specific gravity (U) [Rel density] 1.010 1.002-1.030 [facility] Urine urobilinogen measureme ntOrdered By: Mina Blood on 12-30-2024 Urobilinogen Ql (U) Normal mg/dl Normal [facility] White blood cell (WBC) count Ordered By: Mina Blood on 12-30-2024 WBC (Bld) [#/Vol] 9.4 10*3/uL 4.4-11.0 [facility] White blood cell countOrdere d By: Mina Blood on 12-30-2024 White blood cell count >100 SEEN /hpf 0-5 [facility] Urine Cultureon 12-29-2024 URC Normal [facility] Comment on above: Performed By: #### M 100.2200 ####[facility] [address] [place], [place], [id number] Abdomen/Pelvis without Conto n 12-26-2024 Abdomen/Pelvis without Cont Normal [facility] Absolute lymphocyte countOrd ered By: Boone Carvajal on 12-26-2024 Lymphocytes Auto (Unsp spec) [#/Vol] 1.69 10*3/uL 0.83-4.51 [facility] Activated partial thrombopla stin time (aPTT) in platelet poor plasma by coagulation aOrdered By: Boone Carvajal on 12-26-2024 aPTT Coag (PPP) [Time] 36.3 s High 24.1-36.2 [facility] Ammoniaon 12-26-2024 Ammonia (P) [Moles/Vol] 114.0 umol/L High 16-60 [facility] Comment on above: Result Comment: Hemo lysis present, Results??could be affected.?? Performed By: #### L 300.3900, L501.2450, L100.0100, L501.6901, L503.5510, L300.4310, L500.4050 ####[facility] [address] [place], [place], [id number] Anion gap in Serum or Plasma Ordered By: Boone Carvajal on 12-26-2024 Anion gap [Moles/Vol] 14 mmol/L 5-15 [facility] Automated lymphocyte count a s percentage of total leukocytesOrdered By: Boone Carvajal on 12-26-2024 Lymphocytes/100 WBC Auto (Unsp spec) 15.3 % Low 19-41 [facility] BUN/creatinine ratioOrdered By: Boone Carvajal on 12-26-2024 Urea nitrogen/Creatinine [Mass ratio] 10.3 mg/mg 10-20 [facility] Basophil percentageOrdered B y: Boone Carvajal on 12-26-2024 Basophils/100 WBC (Bld) 0.5 % 0-1 [facility] Beta-Hydroxbytyrateon 2024 BETA-HYDROXYBUT 0.1 mmol/L Normal 0.0-0.3 [facility] Comment on above: Performed By: #### L 300.3900, L501.2450, L100.0100, L501.6901, L503.5510, L300.4310, L500.4050 ####[facility] [address] [place], [address] Beta-hydroxybutyrateOrdered By: Boone Carvajal on 12-26-2024 Beta hydroxybutyrate [Mass/Vol] 0.1 mmol/L 0.0-0.3 [facility] Bilirubin Test strip Ql (U)O rdered By: Boone Carvajal on 12-26-2024 Bilirubin Ql (U) Negative Negative [facility] Bilirubin, totalOrdered By: Boone Carvajal on 12-26-2024 Bilirubin [Mass/Vol] 1.04 mg/dL 0.00-1.30 [facility] CBC W/Diff, Automatedon 12-03 Absolute Lymph 1.69 X10 3/uL Normal 0.83-4.51 [facility] Comment on above: Performed By: #### L 300.3900, L501.2450, L100.0100, L501.6901, L503.5510, L300.4310, L500.4050 ####[facility] [address] [place], [address] Absolute Neut 7.8 X10 3/uL High 2.0-7.7 [facility] Comment on above: Performed By: #### L 300.3900, L501.2450, L100.0100, L501.6901, L503.5510, L300.4310, L500.4050 ####[facility] [address] [place], [address] Basophils/100 WBC (Bld) 0.5 % Normal 0-1 [facility] Comment on above: Performed By: #### L 300.3900, L501.2450, L100.0100, L501.6901, L503.5510, L300.4310, L500.4050 ####[facility] [address] [place], [address] Eosinophils/100 WBC (Bld) 5.8 % High 0-5 [facility] Comment on above: Performed By: #### L 300.3900, L501.2450, L100.0100, L501.6901, L503.5510, L300.4310, L500.4050 ####[facility] [address] [place], [address] Erythrocyte distribution width (RBC) [Ratio] 16.3 % High 11.6-14.6 [facility] Comment on above: Performed By: #### L 300.3900, L501.2450, L100.0100, L501.6901, L503.5510, L300.4310, L500.4050 ####[facility] [address] [place], [address] Hematocrit (Bld) [Volume fraction] 29.6 % Low 40-54 [facility] Comment on above: Performed By: #### L 300.3900, L501.2450, L100.0100, L501.6901, L503.5510, L300.4310, L500.4050 ####[facility] [address] [place], [address] Hemoglobin (Bld) [Mass/Vol] 9.6 g/dL Low 13.0-16.5 [facility] Comment on above: Performed By: #### L 300.3900, L501.2450, L100.0100, L501.6901, L503.5510, L300.4310, L500.4050 ####[facility] [address] [place], [address] IG% 0.500 Normal 0.0-0.9 [facility] Comment on above: Result Comment: IG% - Immature Granulocytes (promyelocytes, myelocytes andmetamyelocytes) > 1% indicates that a LEFT SHIFT is Present. Performed By: #### L 300.3900, L501.2450, L100.0100, L501.6901, L503.5510, L300.4310, L500.4050 ####[facility] [address] [place], [address] Lymphocytes/100 WBC (Bld) 15.3 % Low 19-41 [facility] Comment on above: Performed By: #### L 300.3900, L501.2450, L100.0100, L501.6901, L503.5510, L300.4310, L500.4050 ####[facility] [address] [place], [address] MCH (RBC) [Entitic mass] 29.4 pg Normal 27.0-32.0 [facility] Comment on above: Performed By: #### L 300.3900, L501.2450, L100.0100, L501.6901, L503.5510, L300.4310, L500.4050 ####[facility] [address] [place], [address] MCHC (RBC) [Mass/Vol] 32.4 g/dL Normal 32-36 [facility] Comment on above: Performed By: #### L 300.3900, L501.2450, L100.0100, L501.6901, L503.5510, L300.4310, L500.4050 ####[facility] [address] [place], [address] MCV (RBC) [Entitic vol] 90.8 fL Normal 80-94 [facility] Comment on above: Performed By: #### L 300.3900, L501.2450, L100.0100, L501.6901, L503.5510, L300.4310, L500.4050 ####[facility] [address] [place], [address] Monocytes/100 WBC (Bld) 7.4 % Normal 0-10 [facility] Comment on above: Performed By: #### L 300.3900, L501.2450, L100.0100, L501.6901, L503.5510, L300.4310, L500.4050 ####[facility] [address] [place], [address] Neutrophils/100 WBC (Bld) 70.5 % High 47-70 [facility] Comment on above: Performed By: #### L 300.3900, L501.2450, L100.0100, L501.6901, L503.5510, L300.4310, L500.4050 ####[facility] [address] [place], [address] Nucleated RBC (Bld) [#/Vol] 0 10*3/uL Normal 0-5 [facility] Comment on above: Performed By: #### L 300.3900, L501.2450, L100.0100, L501.6901, L503.5510, L300.4310, L500.4050 ####[facility] [address] [place], [address] Platelet mean volume (Bld) [Entitic vol] 12.5 fL High 6.2-12.0 [facility] Comment on above: Performed By: #### L 300.3900, L501.2450, L100.0100, L501.6901, L503.5510, L300.4310, L500.4050 ####[facility] [address] [place], [address] Platelets (Bld) [#/Vol] 139 10*3/uL Low 150-450 [facility] Comment on above: Performed By: #### L 300.3900, L501.2450, L100.0100, L501.6901, L503.5510, L300.4310, L500.4050 ####[facility] [address] [place], [address] RBC (Bld) [#/Vol] 3.26 10*6/uL Low 4.6-6.2 [facility] Comment on above: Performed By: #### L 300.3900, L501.2450, L100.0100, L501.6901, L503.5510, L300.4310, L500.4050 ####[facility] [address] [place], [address] RDW SD 54.4 fl High 35.1-43.9 [facility] Comment on above: Performed By: #### L 300.3900, L501.2450, L100.0100, L501.6901, L503.5510, L300.4310, L500.4050 ####[facility] [address] [place], [address] WBC (Bld) [#/Vol] 11.0 10*3/uL Normal 4.4-11.0 [facility] Comment on above: Performed By: #### L 300.3900, L501.2450, L100.0100, L501.6901, L503.5510, L300.4310, L500.4050 ####[facility] [address] [place], [address] Carbon dioxide, total [Moles /volume] in Central venous bloodOrdered By: Boone Carvajal on 12-26-2024 CO2 [Moles/Vol] 20.4 mmol/L Low 21.0-32.0 [facility] Chloride assayOrdered By: Hunter Carvajal on 12-26-2024 Chloride [Moles/Vol] 100 mmol/L 98-108 [facility] Comprehensive Metabolic Prof ilon 12-26-2024 Albumin [Mass/Vol] 2.8 g/dL Low 3.5-5.0 [facility] Comment on above: Performed By: #### L 300.3900, L501.2450, L100.0100, L501.6901, L503.5510, L300.4310, L500.4050 ####[facility] [address] [place], [address] Albumin/Globulin [Mass ratio] 0.8 {ratio} Low 0.9-2.4 [facility] Comment on above: Performed By: #### L 300.3900, L501.2450, L100.0100, L501.6901, L503.5510, L300.4310, L500.4050 ####[facility] [address] [place], [address] ALK PHOS 207 U/L High 40-129 [facility] Comment on above: Performed By: #### L 300.3900, L501.2450, L100.0100, L501.6901, L503.5510, L300.4310, L500.4050 ####[facility] [address] [place], [address] ALT [Catalytic activity/Vol] 27 U/L Normal <=46 [facility] Comment on above: Performed By: #### L 300.3900, L501.2450, L100.0100, L501.6901, L503.5510, L300.4310, L500.4050 ####[facility] [address] [place], [address] AST [Catalytic activity/Vol] 58 U/L High <=37 [facility] Comment on above: Result Comment: Hemo lysis present, Results??could be affected.?? Performed By: #### L 300.3900, L501.2450, L100.0100, L501.6901, L503.5510, L300.4310, L500.4050 ####[facility] [address] [place], [address] Bilirubin [Mass/Vol] 1.04 mg/dL Normal 0.00-1.30 [facility] Comment on above: Performed By: #### L 300.3900, L501.2450, L100.0100, L501.6901, L503.5510, L300.4310, L500.4050 ####[facility] [address] [place], [address] BUN/CRE 10.3 RATIO Normal 10-20 [facility] Comment on above: Performed By: #### L 300.3900, L501.2450, L100.0100, L501.6901, L503.5510, L300.4310, L500.4050 ####[facility] [address] [place], [address] Calcium [Mass/Vol] 8.9 mg/dL Normal 7.6-11.0 [facility] Comment on above: Performed By: #### L 300.3900, L501.2450, L100.0100, L501.6901, L503.5510, L300.4310, L500.4050 ####[facility] [address] [place], [address] Chloride [Moles/Vol] 100 mmol/L Normal 98-108 [facility] Comment on above: Performed By: #### L 300.3900, L501.2450, L100.0100, L501.6901, L503.5510, L300.4310, L500.4050 ####[facility] [address] [place], [address] CO2 [Moles/Vol] 20.4 mmol/L Low 21.0-32.0 [facility] Comment on above: Performed By: #### L 300.3900, L501.2450, L100.0100, L501.6901, L503.5510, L300.4310, L500.4050 ####[facility] [address] [place], [address] Creatinine [Mass/Vol] 2.42 mg/dL High 0.70-1.20 [facility] Comment on above: Performed By: #### L 300.3900, L501.2450, L100.0100, L501.6901, L503.5510, L300.4310, L500.4050 ####[facility] [address] [place], [address] ECRCL 37.17 ml/min Low 50-250 [facility] Comment on above: Performed By: #### L 300.3900, L501.2450, L100.0100, L501.6901, L503.5510, L300.4310, L500.4050 ####[facility] [address] [place], [address] GAP 14 Normal 5-15 [facility] Comment on above: Performed By: #### L 300.3900, L501.2450, L100.0100, L501.6901, L503.5510, L300.4310, L500.4050 ####[facility] [address] [place], [address] GFR/1.73 sq M.predicted among non-blacks MDRD (S/P/Bld) [Vol rate/Area] 30 mL/min/{1.73_m2} Low >60 [facility] Comment on above: Result Comment: mL/m in/1.73m2 CKD-EPI Creatinine Equation (2020) Performed By: #### L 300.3900, L501.2450, L100.0100, L501.6901, L503.5510, L300.4310, L500.4050 ####[facility] [address] [place], [address] Globulin (S) [Mass/Vol] 3.5 g/dL Normal 2.2-4.2 [facility] Comment on above: Performed By: #### L 300.3900, L501.2450, L100.0100, L501.6901, L503.5510, L300.4310, L500.4050 ####[facility] [address] [place], [address] Glucose [Mass/Vol] 386 mg/dL High 70-99 [facility] Comment on above: Performed By: #### L 300.3900, L501.2450, L100.0100, L501.6901, L503.5510, L300.4310, L500.4050 ####[facility] [address] [place], [address] Potassium [Moles/Vol] 3.5 mmol/L Normal 3.3-5.1 [facility] Comment on above: Result Comment: Hemo lysis present, Results??could be affected.?? Performed By: #### L 300.3900, L501.2450, L100.0100, L501.6901, L503.5510, L300.4310, L500.4050 ####[facility] [address] [place], [address] Sodium [Moles/Vol] 135 mmol/L Normal 133-145 [facility] Comment on above: Performed By: #### L 300.3900, L501.2450, L100.0100, L501.6901, L503.5510, L300.4310, L500.4050 ####[facility] [address] [place], [address] T PROT 6.3 g/dL Normal 5.9-8.4 [facility] Comment on above: Performed By: #### L 300.3900, L501.2450, L100.0100, L501.6901, L503.5510, L300.4310, L500.4050 ####[facility] [address] [place], [address] Urea nitrogen [Mass/Vol] 25 mg/dL High 4-19 [facility] Comment on above: Performed By: #### L 300.3900, L501.2450, L100.0100, L501.6901, L503.5510, L300.4310, L500.4050 ####[facility] [address] [place], [address] Emergency Department Summary on 12-26-2024 Emergency Department Summary Normal [facility] Eosinophil percentageOrdered By: Boone Carvajal on 12-26-2024 Eosinophils/100 WBC (Bld) 5.8 % High 0-5 [facility] Erythrocyte distribution wid th ratioOrdered By: Boone Carvajal on 12-26-2024 Erythrocyte distribution width (RBC) [Ratio] 16.3 % High 11.6-14.6 [facility] Erythrocyte distribution wid th standard deviationOrdered By: Boone Carvajal on 12-26-2024 Erythrocyte distribution width (RBC) [Ratio] 54.4 fl High 35.1-43.9 [facility] Glomerular filtration rate ( GFR) estimation/1.73 sq m using serum, plasma, or whole bOrdered By: Boone Carvajal on 12-26-2024 GFR/1.73 sq M.predicted among non-blacks MDRD (S/P/Bld) [Vol rate/Area] 30 mL/min/{1.73_m2} Low >60 [facility] Hematocrit Auto (Bld) [Volum e fraction]Ordered By: Boone Carvajal on 12-26-2024 Hematocrit (Bld) [Volume fraction] 29.6 % Low 40-54 [facility] Hemoglobin measurementOrdere d By: Boone Carvajal on 12-26-2024 Hemoglobin (Bld) [Mass/Vol] 9.6 g/dL Low 13.0-16.5 [facility] Immature granulocytes/100 WB C Auto (Bld)Ordered By: Boone Carvajal on 12-26-2024 Immature granulocytes/100 WBC (Bld) 0.500 % 0.0-0.9 [facility] Ketones Test strip Ql (U)Ord ered By: Boone Carvajal on 12-26-2024 Ketones Ql (U) 5 mg/dl High Negative [facility] Lipaseon 12-26-2024 Lipase [Catalytic activity/Vol] 62 U/L Normal 13-75 [facility] Comment on above: Result Comment: Siddhartha bhat note:LIPASE revised reference range effective 22.New Lipase methodology. Expected to produce lower valuesthan the previous assay method.NEW Reference Range: 13 - 75 U/L Performed By: #### L 300.3900, L501.2450, L100.0100, L501.6901, L503.5510, L300.4310, L500.4050 ####[facility] [address] [place], [address] MCV (mean corpuscular volume ) determinationOrdered By: Boone Carvajal on 12-26-2024 MCV (RBC) [Entitic vol] 90.8 fL 80-94 [facility] Mean corpuscular hemoglobin (MCH) determinationOrdered By: Boone Carvajal on 12-26-2024 MCH (RBC) [Entitic mass] 29.4 pg 27.0-32.0 [facility] Monocyte percentageOrdered B y: Boone Carvajal on 12-26-2024 Monocytes/100 WBC (Bld) 7.4 % 0-10 [facility] Mucus LM Ql (Urine sed)Order ed By: Boone Carvajal on 12-26-2024 Mucus Ql (Urine sed) 0 SEEN /hpf [facility] Neutrophil percentageOrdered By: Boone Carvajal on 12-26-2024 Neutrophils/100 WBC (Bld) 70.5 % High 47-70 [facility] Nitrite Test strip Ql (U)Ord ered By: Boone Carvajal on 12-26-2024 Nitrite Ql (U) Negative Negative [facility] No Panel InformationOrdered By: Boone Carvajal on 12-26-2024 58 U/L High <38 [facility] Partial Thromboplast Timeon 12-26-2024 aPTT Coag (Bld) [Time] 36.3 s High 24.1-36.2 [facility] Comment on above: Performed By: #### L 300.3900, L501.2450, L100.0100, L501.6901, L503.5510, L300.4310, L500.4050 ####[facility] [address] [place], [address] Platelet countOrdered By: Hunter Carvajal on 12-26-2024 Platelets (Bld) [#/Vol] 139 10*3/uL Low 150-450 [facility] Potassium measurement (mass/ volume)Ordered By: Boone Carvajal on 12-26-2024 Potassium (Unsp spec) [Mass/Vol] 3.5 mmol/L 3.3-5.1 [facility] Protein Test strip Ql (U)Ord ered By: Boone Carvajal on 12-26-2024 Protein Ql (U) 500 mg/dl High Negative [facility] Prothrombin Time w/INRon INR Coag (PPP) [Relative time] 1.5 {INR} Normal [facility] Comment on above: Performed By: #### L 300.3900, L501.2450, L100.0100, L501.6901, L503.5510, L300.4310, L500.4050 ####[facility] [address] [place], [address] PT Coag (PPP) [Time] 18.5 s High 11.7-14.9 [facility] Comment on above: Performed By: #### L 300.3900, L501.2450, L100.0100, L501.6901, L503.5510, L300.4310, L500.4050 ####[facility] [address] [place], [address] Prothrombin timeOrdered By: Boone Carvajal on 12-26-2024 PT Coag (PPP) [Time] 18.5 s High 11.7-14.9 [facility] RBC Auto (Bld) [#/Vol]Ordere d By: Boone Carvajal on 12-26-2024 RBC (Bld) [#/Vol] 3.26 10*6/uL Low 4.6-6.2 [facility] Serum creatinine measurement (mass/volume)Ordered By: Boone Carvajal on 12-26-2024 Creatinine [Mass/Vol] 2.42 mg/dL High 0.70-1.20 [facility] Serum globulin measurementOr dered By: Boone Carvajal on 12-26-2024 Globulin (S) [Mass/Vol] 3.5 g/dL 2.2-4.2 [facility] Serum glucose measurement (m ass/volume)Ordered By: Boone Carvajal on 12-26-2024 Glucose [Mass/Vol] 386 mg/dL High 70-99 [facility] Serum or plasma alanine thomas otransferase (ALT) measurementOrdered By: Boone Carvajal on 12-26-2024 ALT [Catalytic activity/Vol] 27 U/L <47 [facility] Serum or plasma albumin tyson urement (mass/volume)Ordered By: Boone Carvajal on 12-26-2024 Albumin [Mass/Vol] 2.8 g/dL Low 3.5-5.0 [facility] Serum or plasma albumin/glob ulin mass ratioOrdered By: Boone Carvajal on 12-26-2024 Albumin/Globulin [Mass ratio] 0.8 {ratio} Low 0.9-2.4 [facility] Serum or plasma alkaline kendrick sphatase measurementOrdered By: Boone Carvajal 12-26-2024 ALP [Catalytic activity/Vol] 207 U/L High 40-129 [facility] Serum or plasma calcium tyson urement (mass/volume)Ordered By: Boone Carvajal on 12-26-2024 Calcium [Mass/Vol] 8.9 mg/dL 7.6-11.0 [facility] Serum or plasma urea nitroge n measurement (mass/volume)Ordered By: Boone Carvajal on 12-26-2024 Urea nitrogen [Mass/Vol] 25 mg/dL High 4-19 [facility] Sodium levelOrdered By: Boone Carvajal on 12-26-2024 Sodium [Moles/Vol] 135 mmol/L 133-145 [facility] Squamous epithelial cells de tection in urine sediment by light microscopyOrdered By: Boone Carvajal on 12-26-2024 Epithelial cells.squamous LM Ql (Urine sed) 0 SEEN /hpf 0-5 [facility] Total proteinOrdered By: Danita Carvajal on 12-26-2024 Protein [Mass/Vol] 6.3 g/dL 5.9-8.4 [facility] Urinalysis, Completeon 12-26 RBC 25-50 SEEN Normal 0-5 [facility] Comment on above: Order Comment: COLOR OF URINE MAY AFFECT DIPSTICK RESULTS.CLEAN CATCH Performed By: #### L 400.0001 ####[facility] [address] [place], [address] WBC 25-50 SEEN Normal 0-[address] [place] [address] Comment on above: Order Comment: COLOR OF URINE MAY AFFECT DIPSTICK RESULTS.CLEAN CATCH Performed By: #### L 400.0001 ####[facility] [address] [place], [address] BACTERIA 0 SEEN Normal None Seen [facility] Comment on above: Order Comment: COLOR OF URINE MAY AFFECT DIPSTICK RESULTS.CLEAN CATCH Performed By: #### L 400.0001 ####[facility] [address] [place], [address] EPI,SQUAMOUS 0 SEEN Normal 0-5 [facility] Comment on above: Order Comment: COLOR OF URINE MAY AFFECT DIPSTICK RESULTS.CLEAN CATCH Performed By: #### L 400.0001 ####[facility] [address] [place], [address] Mucus Ql (Urine sed) 0 SEEN Normal [facility] Comment on above: Order Comment: COLOR OF URINE MAY AFFECT DIPSTICK RESULTS.CLEAN CATCH Performed By: #### L 400.0001 ####[facility] [address] [place], [address] Urine clarityOrdered By: Danita Carvajal on 12-26-2024 Clarity (U) Cloudy Clear [facility] Urine color determinationOrd ered By: Boone Carvajal on 12-26-2024 Color (U) Lexis Yellow [facility] Urine cultureOrdered By: Danita Carvajal on 12-26-2024 Bacteria identified Cx Nom (U) Enterococcus faecalis Abnormal [facility] Bacteria identified Cx Nom (U) 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 Abnormal [facility] Urine glucose detectionOrder ed By: Boone Carvajal on 12-26-2024 Glucose Ql (U) Normal mg/dl Normal [facility] Urine leukocyte esterase det ection by dipstickOrdered By: Boone Carvajal on 12-26-2024 Leukocyte esterase Test strip Ql (U) 500 /ul High Negative [facility] Urine pHOrdered By: Boone romo on 12-26-2024 pH (U) 6.0 [pH] 5.0 - 8.0 [facility] Urine sediment bacteria coun t by microscopy (number/high power field)Ordered By: Boone Carvajal on 12-26-2024 Bacteria LM.HPF (Urine sed) [#/Area] 0 /[HPF] None Seen [facility] Urine specific gravity measu rementOrdered By: Boone Carvajal on 12-26-2024 Specific gravity (U) [Rel density] 1.015 1.002-1.030 [facility] Urine urobilinogen measureme ntOrdered By: Boone Carvajal on 12-26-2024 Urobilinogen Ql (U) Normal mg/dl Normal [facility] Venous blood ammonia measure mentOrdered By: Boone Carvajal on 12-26-2024 Ammonia (P) [Moles/Vol] 114.0 umol/L High 16-60 [facility] White blood cell (WBC) count Ordered By: Boone Carvajal on 12-26-2024 WBC (Bld) [#/Vol] 11.0 10*3/uL 4.4-11.0 [facility] White blood cell countOrdere d By: Boone Carvajal on 12-26-2024 White blood cell count 25-50 SEEN /hpf 0-5 [facility] Abdomen Limitedon 12-15-2024 Abdomen Limited Normal [facility] L501.5101on 12-08-2024 GGTP 103 IU/L Abnormal 0-65 [facility] Comment on above: Result Comment: Perf ormed at: CB - [facility] [id number] [place], [place] [id number] Director: Buck Ivy PhD, Phone: [phone] Performed By: #### L 100.0100, L500.4050, L501.5101, L501.9985 ####[facility] [id number] [place], [address] Absolute lymphocyte countOrd ered By: Josy Elias on 12-07-2024 Lymphocytes Auto (Unsp spec) [#/Vol] 1.71 10*3/uL 0.83-4.51 [facility] Anion gap in Serum or Plasma Ordered By: Josy Elias on 12-07-2024 Anion gap [Moles/Vol] 12 mmol/L 5-15 [facility] Automated lymphocyte count a s percentage of total leukocytesOrdered By: Josy Elias on 12-07-2024 Lymphocytes/100 WBC Auto (Unsp spec) 18.4 % Low 19-41 [facility] BUN/creatinine ratioOrdered By: [facility] 12-07-2024 Urea nitrogen/Creatinine [Mass ratio] 10.0 mg/mg 10-20 [facility] Basophil percentageOrdered B y: Josy Elias on 12-07-2024 Basophils/100 WBC (Bld) 0.6 % 0-1 [facility] Bilirubin, totalOrdered By: Josy Elias on 12-07-2024 Bilirubin [Mass/Vol] 1.21 mg/dL 0.00-1.30 [facility] CBC W/Diff, Automatedon 05-0 PATH REV N/A Normal [facility] Comment on above: Result Comment: PATH REVIEW DONE WITH IN THE PAST 30 DAYS AMENDED REPORT 12/07/24 4114 PATH REV previously reported as: December Performed By: #### L 500.4050, L100.0100 ####[facility] [address] [place], [place], [id number] Basophils/100 WBC (Bld) 0.6 % Normal 0-1 [facility] Comment on above: Performed By: #### L 100.0100, L500.4050, L501.5101, L501.9985 ####[facility] [address] [place], [address] Eosinophils/100 WBC (Bld) 5.1 % High 0-5 [facility] Comment on above: Performed By: #### L 100.0100, L500.4050, L501.5101, [id number] ####[facility] [address] [place], [address] Hematocrit (Bld) [Volume fraction] 26.2 % Low 40-54 [facility] Comment on above: Performed By: #### L 100.0100, L500.4050, L501.5101, L501.9985 ####[facility] [address] [place], [address] Hemoglobin (Bld) [Mass/Vol] 8.5 g/dL Low 13.0-16.5 [facility] Comment on above: Performed By: #### L 100.0100, L500.4050, L501.5101, [id number] ####[facility] [address] [place], [address] Lymphocytes/100 WBC (Bld) 18.4 % Low 19-41 [facility] Comment on above: Performed By: #### L 100.0100, L500.4050, L501.5101, L501.9985 ####[facility] [address] [place], [address] RBC (Bld) [#/Vol] 2.81 10*6/uL Low 4.6-6.2 [facility] Comment on above: Performed By: #### L 100.0100, L500.4050, L501.5101, L501.9985 ####[facility] [address] [place], [address] CNPTOUTREACHon 12-07-[address] [facility] Carbon dioxide, total [Moles /volume] in Central venous bloodOrdered By: Josy Elias on 12-07-2024 CO2 [Moles/Vol] 20.0 mmol/L Low 21.0-32.0 [facility] Chloride assayOrdered By: Monica Elias on 12-07-2024 Chloride [Moles/Vol] 103 mmol/L 98-108 [facility] Comprehensive Metabolic Prof ilon 12-07-2024 Albumin [Mass/Vol] 2.6 g/dL Low 3.5-5.0 [facility] Comment on above: Performed By: #### L 100.0100, L500.4050, L501.5101, L501.9985 ####[facility] [address] [place], [address] Albumin/Globulin [Mass ratio] 0.9 {ratio} Normal 0.9-2.4 [facility] Comment on above: Performed By: #### L 100.0100, L500.4050, L501.5101, L501.9985 ####[facility] [address] [place], [address] ALK PHOS 241 U/L High 40-129 [facility] Comment on above: Performed By: #### L 100.0100, L500.4050, L501.5101, L501.9985 ####[facility] [address] [place], [address] ALT [Catalytic activity/Vol] 24 U/L Normal <=46 [facility] Comment on above: Performed By: #### L 100.0100, L500.4050, L501.5101, L501.9985 ####[facility] [address] [place], [address] AST [Catalytic activity/Vol] 37 U/L Normal <=37 [facility] Comment on above: Performed By: #### L 100.0100, L500.4050, L501.5101, L501.9985 ####[facility] [address] [place], [address] Bilirubin [Mass/Vol] 1.21 mg/dL Normal 0.00-1.30 [facility] Comment on above: Performed By: #### L 100.0100, L500.4050, L501.5101, L501.9985 ####[facility] [address] [place], [address] BUN/CRE 10.0 RATIO Normal 10-20 [facility] Comment on above: Performed By: #### L 100.0100, L500.4050, L501.5101, [id number] ####[facility] [address] [place], [address] Calcium [Mass/Vol] 8.2 mg/dL Normal 7.6-11.0 [facility] Comment on above: Performed By: #### L 100.0100, L500.4050, L501.5101, L501.9985 ####[facility] [address] [place], [address] Chloride [Moles/Vol] 103 mmol/L Normal 98-108 [facility] Comment on above: Performed By: #### L 100.0100, L500.4050, L501.5101, [id number] ####[facility] [address] [place], [address] CO2 [Moles/Vol] 20.0 mmol/L Low 21.0-32.0 [facility] Comment on above: Performed By: #### L 100.0100, L500.4050, L501.5101, L501.9985 ####[facility] [address] [place], [address] Creatinine [Mass/Vol] 1.78 mg/dL High 0.70-1.20 [facility] Comment on above: Performed By: #### L 100.0100, L500.4050, L501.5101, [id number] ####[facility] [address] [place], [address] GAP 12 Normal 5-15 [facility] Comment on above: Performed By: #### L 100.0100, L500.4050, L501.5101, L501.9985 ####[facility] [address] [place], [address] GFR/1.73 sq M.predicted among non-blacks MDRD (S/P/Bld) [Vol rate/Area] 44 mL/min/{1.73_m2} Low >60 [facility] Comment on above: Result Comment: mL/m in/1.73m2 CKD-EPI Creatinine Equation (2020) Performed By: #### L 100.0100, L500.4050, L501.5101, L501.9985 ####[facility] [address] [place], [address] Globulin (S) [Mass/Vol] 2.9 g/dL Normal 2.2-4.2 [facility] Comment on above: Performed By: #### L 100.0100, L500.4050, L501.5101, L501.9985 ####[facility] [address] [place], [address] Glucose [Mass/Vol] 185 mg/dL High 70-99 [facility] Comment on above: Performed By: #### L 100.0100, L500.4050, L501.5101, L501.9985 ####[facility] [address] [place], [address] Potassium [Moles/Vol] 3.3 mmol/L Normal 3.3-5.1 [facility] Comment on above: Performed By: #### L 100.0100, L500.4050, L501.5101, L501.9985 ####[facility] [address] [place], [address] Sodium [Moles/Vol] 136 mmol/L Normal 133-145 [facility] Comment on above: Performed By: #### L 100.0100, L500.4050, L501.5101, L501.9985 ####[facility] [address] [place], [address] T PROT 5.5 g/dL Low 5.9-8.4 [facility] Comment on above: Performed By: #### L 100.0100, L500.4050, L501.5101, L501.9985 ####[facility] [address] [place], [address] Urea nitrogen [Mass/Vol] 18 mg/dL Normal 4-19 [facility] Comment on above: Performed By: #### L 100.0100, L500.4050, L501.5101, L501.9985 ####[facility] [address] [place], [address] Eosinophil percentageOrdered By: Josy Elias on 12-07-2024 Eosinophils/100 WBC (Bld) 5.1 % High 0-5 [facility] Erythrocyte distribution wid th ratioOrdered By: Josy Elias on 12-07-2024 Erythrocyte distribution width (RBC) [Ratio] 16.9 % High 11.6-14.6 [facility] Erythrocyte distribution wid th standard deviationOrdered By: Josy Elias on 12-07-2024 Erythrocyte distribution width (RBC) [Ratio] 57.4 fl High 35.1-43.9 [facility] Gamma glutamyl transferase ( GGT) measurementOrdered By: Josy Elias on 12-07-2024 Amylase [Catalytic activity/Vol] 103 U/L High 0-65 [facility] Glomerular filtration rate ( GFR) estimation/1.73 sq m using serum, plasma, or whole bOrdered By: Josy Elias on 12-07-2024 GFR/1.73 sq M.predicted among non-blacks MDRD (S/P/Bld) [Vol rate/Area] 44 mL/min/{1.73_m2} Low >60 [facility] Hematocrit Auto (Bld) [Volum e fraction]Ordered By: Josy Elias on 12-07-2024 Hematocrit (Bld) [Volume fraction] 26.2 % Low 40-54 [facility] Hemoglobin A1con 12-07-2024 HbA1c (Bld) [Mass fraction] 7.2 % High <=5.6 [facility] Comment on above: Result Comment: Norm al < 5.7 % Prediabetic 5.7 - 6.4 % Diabetic >or= 6.5 % Please note range changes. Performed By: #### L 100.0100, L500.4050, L501.5101, L501.9985 ####[facility] [address] [place], [address] Hemoglobin A1c percentageOrd ered By: Josy Elias on 12-07-2024 HbA1c (Bld) [Mass fraction] 7.2 % High <5.7 [facility] Hemoglobin measurementOrdere d By: Josy Elias on 12-07-2024 Hemoglobin (Bld) [Mass/Vol] 8.5 g/dL Low 13.0-16.5 [facility] Immature granulocytes/100 WB C Auto (Bld)Ordered By: Josy Elias on 12-07-2024 Immature granulocytes/100 WBC (Bld) 0.300 % 0.0-0.9 [facility] MCV (mean corpuscular volume ) determinationOrdered By: Josy Elias on 12-07-2024 MCV (RBC) [Entitic vol] 93.2 fL 80-94 [facility] Mean corpuscular hemoglobin (MCH) determinationOrdered By: Josy Elias on 12-07-2024 MCH (RBC) [Entitic mass] 30.2 pg 27.0-32.0 [facility] Monocyte percentageOrdered B y: Josy Elias on 12-07-2024 Monocytes/100 WBC (Bld) 12.1 % High 0-10 [facility] Neutrophil percentageOrdered By: Josy Elias on 12-07-2024 Neutrophils/100 WBC (Bld) 63.5 % 47-70 [facility] No Panel InformationOrdered By: Josy Elias on 12-07-2024 37 U/L <38 [facility] Platelet countOrdered By: Monica Elias on 12-07-2024 Platelets (Bld) [#/Vol] 145 10*3/uL Low 150-450 [facility] Potassium measurement (mass/ volume)Ordered By: Josy Elias on 12-07-2024 Potassium (Unsp spec) [Mass/Vol] 3.3 mmol/L 3.3-5.1 [facility] RBC Auto (Bld) [#/Vol]Ordere d By: Josy Elias on 12-07-2024 RBC (Bld) [#/Vol] 2.81 10*6/uL Low 4.6-6.2 [facility] Serum creatinine measurement (mass/volume)Ordered By: Josy Elias on 12-07-2024 Creatinine [Mass/Vol] 1.78 mg/dL High 0.70-1.20 [facility] Serum globulin measurementOr dered By: Josy Elias on 12-07-2024 Globulin (S) [Mass/Vol] 2.9 g/dL 2.2-4.2 [facility] Serum glucose measurement (m ass/volume)Ordered By: Josy Elias on 12-07-2024 Glucose [Mass/Vol] 185 mg/dL High 70-99 [facility] Serum or plasma alanine thomas otransferase (ALT) measurementOrdered By: Josy Elias on 12-07-2024 ALT [Catalytic activity/Vol] 24 U/L <47 [facility] Serum or plasma albumin tyson urement (mass/volume)Ordered By: Josy Elias on 12-07-2024 Albumin [Mass/Vol] 2.6 g/dL Low 3.5-5.0 [facility] Serum or plasma albumin/glob ulin mass ratioOrdered By: Josy Elias on 12-07-2024 Albumin/Globulin [Mass ratio] 0.9 {ratio} 0.9-2.4 [facility] Serum or plasma alkaline kendrick sphatase measurementOrdered By: Josy Elias on 12-07-2024 ALP [Catalytic activity/Vol] 241 U/L High 40-129 [facility] Serum or plasma calcium tyson urement (mass/volume)Ordered By: Josy Elias on 12-07-2024 Calcium [Mass/Vol] 8.2 mg/dL 7.6-11.0 [facility] Serum or plasma urea nitroge n measurement (mass/volume)Ordered By: Josy Elias on 12-07-2024 Urea nitrogen [Mass/Vol] 18 mg/dL 4-19 [facility] Sodium levelOrdered By: Terrance Elias on 12-07-2024 Sodium [Moles/Vol] 136 mmol/L 133-145 [facility] Total proteinOrdered By: Chinedu Elias on 12-07-2024 Protein [Mass/Vol] 5.5 g/dL Low 5.9-8.4 [facility] White blood cell (WBC) count Ordered By: Josy Elias on 12-07-2024 WBC (Bld) [#/Vol] 9.3 10*3/uL 4.4-11.0 [facility] Absolute lymphocyte countOrd ered By: Hill Acuña on 12-02-2024 Lymphocytes Auto (Unsp spec) [#/Vol] 0.92 10*3/uL 0.83-4.51 [facility] Anion gap in Serum or Plasma Ordered By: Hill Acuña on 12-02-2024 Anion gap [Moles/Vol] 7 mmol/L 5-15 [facility] Automated lymphocyte count a s percentage of total leukocytesOrdered By: Hill Acuña on 12-02-2024 Lymphocytes/100 WBC Auto (Unsp spec) 15.7 % Low 19-41 [facility] BUN/creatinine ratioOrdered By: Hill Acuña on 12-02-2024 Urea nitrogen/Creatinine [Mass ratio] 8.1 mg/mg Low 10-20 [facility] Basophil percentageOrdered B y: Hill Acuña on 12-02-2024 Basophils/100 WBC (Bld) 0.5 % 0-1 [facility] Bilirubin, totalOrdered By: Hill Acuña on 12-02-2024 Bilirubin [Mass/Vol] 1.07 mg/dL 0.00-1.30 [facility] Carbon dioxide, total [Moles /volume] in Central venous bloodOrdered By: Hill Acuña on 12-02-2024 CO2 [Moles/Vol] 21.0 mmol/L 21.0-32.0 [facility] Chloride assayOrdered By: Kvng Acuña on 12-02-2024 Chloride [Moles/Vol] 104 mmol/L 98-108 [facility] Eosinophil percentageOrdered By: Hill Acuña on 12-02-2024 Eosinophils/100 WBC (Bld) 3.6 % 0-5 [facility] Erythrocyte distribution wid th ratioOrdered By: Hill Acuña on 12-02-2024 Erythrocyte distribution width (RBC) [Ratio] 16.2 % High 11.6-14.6 [facility] Erythrocyte distribution wid th standard deviationOrdered By: Hill Acuña on 12-02-2024 Erythrocyte distribution width (RBC) [Ratio] 53.0 fl High 35.1-43.9 [facility] Glomerular filtration rate ( GFR) estimation/1.73 sq m using serum, plasma, or whole bOrdered By: Hill Acuña on 12-02-2024 GFR/1.73 sq M.predicted among non-blacks MDRD (S/P/Bld) [Vol rate/Area] 98 mL/min/{1.73_m2} >60 [facility] Gl[facility] deOrdered By: Hill Acuña on 12-02-2024 Glucose [Mass/Vol] 259 mg/dL High 74-106 [facility] Hematocrit Auto (Bld) [Volum e fraction]Ordered By: Hill Acuña on 12-02-2024 Hematocrit (Bld) [Volume fraction] 21.9 % Low 40-54 [facility] Hemoglobin measurementOrdere d By: Hill Acuña on 12-02-2024 Hemoglobin (Bld) [Mass/Vol] 7.2 g/dL Low 13.0-16.5 [facility] Immature granulocytes/100 WB C Auto (Bld)Ordered By: Hill Acuña on 12-02-2024 Immature granulocytes/100 WBC (Bld) 0.500 % 0.0-0.9 [facility] MCV (mean corpuscular volume ) determinationOrdered By: Hill Acuña on 12-02-2024 MCV (RBC) [Entitic vol] 89.8 fL 80-94 [facility] Magnesium measurement (mass/ volume)Ordered By: Hill Acuña on 12-02-2024 Magnesium (Unsp spec) [Mass/Vol] 1.6 mg/dL 1.5-2.2 [facility] Mean corpuscular hemoglobin (MCH) determinationOrdered By: Hill Acuña on 12-02-2024 MCH (RBC) [Entitic mass] 29.5 pg 27.0-32.0 [facility] Monocyte percentageOrdered B y: Hill Acuña on 12-02-2024 Monocytes/100 WBC (Bld) 13.3 % High 0-10 [facility] Neutrophil percentageOrdered By: Hill Acuña on 12-02-2024 Neutrophils/100 WBC (Bld) 66.4 % 47-70 [facility] No Panel InformationOrdered By: Hill Acuña on 12-02-2024 58 U/L High <38 [facility] Platelet countOrdered By: Kvng Acuña on 12-02-2024 Platelets (Bld) [#/Vol] 100 10*3/uL Low 150-450 [facility] Potassium measurement (mass/ volume)Ordered By: Hill Acuña on 12-02-2024 Potassium (Unsp spec) [Mass/Vol] 3.8 mmol/L 3.3-5.1 [facility] RBC Auto (Bld) [#/Vol]Ordere d By: Hill Acuña on 12-02-2024 RBC (Bld) [#/Vol] 2.44 10*6/uL Low 4.6-6.2 [facility] Serum creatinine measurement (mass/volume)Ordered By: Hill Acuña on 12-02-2024 Creatinine [Mass/Vol] 0.90 mg/dL 0.70-1.20 [facility] Serum globulin measurementOr dered By: Hill Acuña on 12-02-2024 Globulin (S) [Mass/Vol] 2.6 g/dL 2.2-4.2 [facility] Serum glucose measurement (m ass/volume)Ordered By: Hill Acuña on 12-02-2024 Glucose [Mass/Vol] 221 mg/dL High 70-99 [facility] Serum or plasma alanine thomas otransferase (ALT) measurementOrdered By: Hill Acuña on 12-02-2024 ALT [Catalytic activity/Vol] 33 U/L <47 [facility] Serum or plasma albumin tyson urement (mass/volume)Ordered By: Hill Acuña on 12-02-2024 Albumin [Mass/Vol] 2.5 g/dL Low 3.5-5.0 [facility] Serum or plasma albumin/glob ulin mass ratioOrdered By: Hill Acuña on 12-02-2024 Albumin/Globulin [Mass ratio] 1.0 {ratio} 0.9-2.4 [facility] Serum or plasma alkaline kendrick sphatase measurementOrdered By: Hill Acuña on 12-02-2024 ALP [Catalytic activity/Vol] 219 U/L High 40-129 [facility] Serum or plasma calcium tyson urement (mass/volume)Ordered By: Hill Acuña on 12-02-2024 Calcium [Mass/Vol] 7.8 mg/dL 7.6-11.0 [facility] Serum or plasma urea nitroge n measurement (mass/volume)Ordered By: Hill Acuña on 12-02-2024 Urea nitrogen [Mass/Vol] 7 mg/dL 4-19 [facility] Sodium levelOrdered By: Paulino Acuña on 12-02-2024 Sodium [Moles/Vol] 132 mmol/L Low 133-145 [facility] Total proteinOrdered By: Hugo Acuña on 12-02-2024 Protein [Mass/Vol] 5.1 g/dL Low 5.9-8.4 [facility] Trough vancomycin levelOrder ed By: Maria Guadalupe Shore on 12-02-2024 Vancomycin trough [Mass/Vol] 19.6 ug/mL High 5.0-15.0 [facility] White blood cell (WBC) count Ordered By: Hill Acuña on 12-02-2024 WBC (Bld) [#/Vol] 5.9 10*3/uL 4.4-11.0 [facility] Platelet estimateOrdered By: Hill Acuña on 11-30-2024 Platelets LM Ql (Bld) MOD DEC ADEQ [facility] Serum or plasma vancomycin m easurement (mass/volume)Ordered By: Kathie Lemos on 11-30-2024 Vancomycin [Mass/Vol] 17.7 ug/mL High 0.0-15.0 [facility] Prothrombin timeOrdered By: Kathie Lemos on 11-29-2024 PT Coag (PPP) [Time] 21.1 s High 11.7-14.9 [facility] Bilirubin Test strip Ql (U)O rdered By: Rachel Joiner on 11-28-2024 Bilirubin Ql (U) Negative Negative [facility] Bilirubin directOrdered By: Rachel Joiner on 11-28-2024 Bilirubin.direct [Mass/Vol] 0.72 mg/dL High 0.00-0.30 [facility] Ketones Test strip Ql (U)Ord ered By: Rachel Joiner on 11-28-2024 Ketones Ql (U) 5 mg/dl High Negative [facility] Mucus LM Ql (Urine sed)Order ed By: Rachel Joiner on 11-28-2024 Mucus Ql (Urine sed) 0 SEEN /hpf [facility] Nitrite Test strip Ql (U)Ord ered By: Rachel Joiner on 11-28-2024 Nitrite Ql (U) Positive High Negative [facility] Protein Test strip Ql (U)Ord ered By: Rachel Joiner on 11-28-2024 Protein Ql (U) 100 mg/dl High Negative [facility] Squamous epithelial cells de tection in urine sediment by light microscopyOrdered By: Rachel Joiner on 11-28-2024 Epithelial cells.squamous LM Ql (Urine sed) 0-5 SEEN /hpf 0-5 [facility] Urine clarityOrdered By: Shi Joiner on 11-28-2024 Clarity (U) Cloudy Clear [facility] Urine color determinationOrd ered By: Rachel Joiner on 11-28-2024 Color (U) Lexis Yellow [facility] Urine cultureOrdered By: Tyree Lemos on 11-28-2024 Bacteria identified Cx Nom (U) ESBL Klebsiella pneumoniae pne Abnormal [facility] Urine glucose detectionOrder ed By: Rachel Joiner on 11-28-2024 Glucose Ql (U) Normal mg/dl Normal [facility] Urine leukocyte esterase det ection by dipstickOrdered By: Rachel Joiner on 11-28-2024 Leukocyte esterase Test strip Ql (U) 500 /ul High Negative [facility] Urine pHOrdered By: Rachel silva on 11-28-2024 pH (U) 6.5 [pH] 5.0 - 8.0 [facility] Urine sediment bacteria coun t by microscopy (number/high power field)Ordered By: Rachel Joiner on 11-28-2024 Bacteria LM.HPF (Urine sed) [#/Area] 1 /[HPF] None Seen [facility] Urine specific gravity measu rementOrdered By: Rachel Joiner on 11-28-2024 Specific gravity (U) [Rel density] 1.010 1.002-1.030 [facility] Urine urobilinogen measureme ntOrdered By: Rachel Joiner on 11-28-2024 Urobilinogen Ql (U) Normal mg/dl Normal [facility] Venous blood ammonia measure mentOrdered By: Rachel Joiner on 11-28-2024 Ammonia (P) [Moles/Vol] 68.4 umol/L High 16-60 [facility] White blood cell countOrdere d By: Rachel Joiner on 11-28-2024 White blood cell count 50-100 SEEN /hpf 0-5 [facility] Absolute lymphocyte countOrd ered By: Anurag Irene on 11-25-2024 Lymphocytes Auto (Unsp spec) [#/Vol] 0.92 10*3/uL 0.83-4.51 [facility] Anion gap in Serum or Plasma Ordered By: Anurag Irene on 11-25-2024 Anion gap [Moles/Vol] 8 mmol/L 5-15 [facility] Automated lymphocyte count a s percentage of total leukocytesOrdered By: Anurag Irene on 11-25-2024 Lymphocytes/100 WBC Auto (Unsp spec) 16.7 % Low 19-41 [facility] BUN/creatinine ratioOrdered By: Anurag Irene on 11-25-2024 Urea nitrogen/Creatinine [Mass ratio] 9.2 mg/mg Low 10-20 [facility] Basophil percentageOrdered B y: Anurag Irene on 11-25-2024 Basophils/100 WBC (Bld) 0.4 % 0-1 [facility] Bilirubin, totalOrdered By: Anurag Irene on 11-25-2024 Bilirubin [Mass/Vol] 1.07 mg/dL 0.00-1.30 [facility] Carbon dioxide, total [Moles /volume] in Central venous bloodOrdered By: Anurag Irene on 11-25-2024 CO2 [Moles/Vol] 19.3 mmol/L Low 21.0-32.0 [facility] Chloride assayOrdered By: Francois Irene on 11-25-2024 Chloride [Moles/Vol] 108 mmol/L 98-108 [facility] Eosinophil percentageOrdered By: Anurag Irene on 11-25-2024 Eosinophils/100 WBC (Bld) 4.2 % 0-5 [facility] Erythrocyte distribution wid th ratioOrdered By: Anurag Irene on 11-25-2024 Erythrocyte distribution width (RBC) [Ratio] 15.8 % High 11.6-14.6 [facility] Erythrocyte distribution wid th standard deviationOrdered By: Anurag Irene on 11-25-2024 Erythrocyte distribution width (RBC) [Ratio] 52.9 fl High 35.1-43.9 [facility] Glomerular filtration rate ( GFR) estimation/1.73 sq m using serum, plasma, or whole bOrdered By: Anurag Irene on 11-25-2024 GFR/1.73 sq M.predicted among non-blacks MDRD (S/P/Bld) [Vol rate/Area] 100 mL/min/{1.73_m2} >60 [facility] Glucose measurement at bedsi deOrdered By: Anurag Irene on 11-25-2024 Glucose [Mass/Vol] 222 mg/dL High 74-106 [facility] Hematocrit Auto (Bld) [Volum e fraction]Ordered By: Anurag Irene on 11-25-2024 Hematocrit (Bld) [Volume fraction] 21.5 % Low 40-54 [facility] Hemoglobin measurementOrdere d By: Anurag Irene on 11-25-2024 Hemoglobin (Bld) [Mass/Vol] 7.0 g/dL Low 13.0-16.5 [facility] Immature granulocytes/100 WB C Auto (Bld)Ordered By: Anurag Irene on 11-25-2024 Immature granulocytes/100 WBC (Bld) 0.400 % 0.0-0.9 [facility] MCV (mean corpuscular volume ) determinationOrdered By: Anurag Irene on 11-25-2024 MCV (RBC) [Entitic vol] 93.1 fL 80-94 [facility] Mean corpuscular hemoglobin (MCH) determinationOrdered By: Anurag Irene on 11-25-2024 MCH (RBC) [Entitic mass] 30.3 pg 27.0-32.0 [facility] Monocyte percentageOrdered B y: Anurag Irene on 11-25-2024 Monocytes/100 WBC (Bld) 12.7 % High 0-10 [facility] Neutrophil percentageOrdered By: Anurag Irnee on 11-25-2024 Neutrophils/100 WBC (Bld) 65.6 % 47-70 [facility] No Panel InformationOrdered By: Anurag Irene on 11-25-2024 60 U/L High <38 [facility] Platelet countOrdered By: Francois Irene on 11-25-2024 Platelets (Bld) [#/Vol] 82 10*3/uL Low 150-450 [facility] Potassium measurement (mass/ volume)Ordered By: Anurag Irene on 11-25-2024 Potassium (Unsp spec) [Mass/Vol] 4.2 mmol/L 3.3-5.1 [facility] RBC Auto (Bld) [#/Vol]Ordere d By: Anurag Irene on 11-25-2024 RBC (Bld) [#/Vol] 2.31 10*6/uL Low 4.6-6.2 [facility] Serum creatinine measurement (mass/volume)Ordered By: Anurag Irene on 11-25-2024 Creatinine [Mass/Vol] 0.86 mg/dL 0.70-1.20 [facility] Serum globulin measurementOr dered By: Anurag Irene on 11-25-2024 Globulin (S) [Mass/Vol] 2.2 g/dL 2.2-4.2 [facility] Serum glucose measurement (m ass/volume)Ordered By: Anurag Irene on 11-25-2024 Glucose [Mass/Vol] 179 mg/dL High 70-99 [facility] Serum or plasma alanine thomas otransferase (ALT) measurementOrdered By: Anurag Irene on 11-25-2024 ALT [Catalytic activity/Vol] 41 U/L <47 [facility] Serum or plasma albumin tyson urement (mass/volume)Ordered By: Anurag Irene on 11-25-2024 Albumin [Mass/Vol] 2.7 g/dL Low 3.5-5.0 [facility] Serum or plasma albumin/glob ulin mass ratioOrdered By: Anurag Irene on 11-25-2024 Albumin/Globulin [Mass ratio] 1.2 {ratio} 0.9-2.4 [facility] Serum or plasma alkaline kendrick sphatase measurementOrdered By: Anurag Irene on 11-25-2024 ALP [Catalytic activity/Vol] 168 U/L High 40-129 [facility] Serum or plasma calcium tyson urement (mass/volume)Ordered By: Anurag Irene on 11-25-2024 Calcium [Mass/Vol] 8.3 mg/dL 7.6-11.0 [facility] Serum or plasma urea nitroge n measurement (mass/volume)Ordered By: Anurag Irene on 11-25-2024 Urea nitrogen [Mass/Vol] 8 mg/dL 4-19 [facility] Sodium levelOrdered By: Marni Irene on 11-25-2024 Sodium [Moles/Vol] 135 mmol/L 133-145 [facility] Total proteinOrdered By: [place] Irene on 11-25-2024 Protein [Mass/Vol] 4.9 g/dL Low 5.9-8.4 [facility] White blood cell (WBC) count Ordered By: Anurag Irene on 11-25-2024 WBC (Bld) [#/Vol] 5.5 10*3/uL 4.4-11.0 [facility] Blood manual differential co mment interpretation (narrative result)Ordered By: Anurag Irene on 11-24-2024 Manual differential comment Marco Antonio (Bld) [Interp] SCANNED [facility] Platelet estimateOrdered By: Anurag Irene on 11-24-2024 Platelets LM Ql (Bld) MOD DEC ADEQ [facility] Prothrombin timeOrdered By: Anurag Irene on 11-24-2024 PT Coag (PPP) [Time] 22.6 s High 11.7-14.9 [facility] Bilirubin directOrdered By: Anurag Irene on 11-22-2024 Bilirubin.direct [Mass/Vol] 0.73 mg/dL High 0.00-0.30 [facility] ALP [Catalytic activity/Vol] Ordered By: Herberth Carlson on 11-21-2024 Serum or plasma alkaline phosphatase measurement 245 U/L High 40-129 [facility] ALT [Catalytic activity/Vol] Ordered By: Herberth Carlson on 11-21-2024 Serum or plasma alanine aminotransferase (ALT) measurement 61 U/L High <47 [facility] Absolute neutrophil countOrd ered By: Herberth Carlson on 11-21-2024 Absolute neutrophil count 6.5 X10^3/uL 2.0-7.7 [facility] Albumin [Mass/Vol]Ordered By : Herberth Carlson on 11-21-2024 Serum or plasma albumin measurement (mass/volume) 2.5 g/dL Low 3.5-5.0 [facility] Albumin/Globulin [Mass ratio ]Ordered By: Herberth Carlson on 11-21-2024 Serum or plasma albumin/globulin mass ratio 0.9 RATIO 0.9-2.4 [facility] Anion gap [Moles/Vol]Ordered By: Herberth Carlson on 11-21-2024 Anion gap in Serum or Plasma 11 5-15 [facility] BUN/creatinine ratioOrdered By: Herberth Carlson on 11-21-2024 BUN/creatinine ratio 19.1 RATIO 10-20 [facility] Bacteria LM.HPF (Urine sed) [#/Area]Ordered By: Herberth Carlson on 11-21-2024 Urine sediment bacteria count by microscopy (number/high power field) RARE /hpf None Seen [facility] Basophil percentageOrdered B y: Herberth Carlson on 11-21-2024 Basophil percentage 0.2 % 0-1 [facility] Bilirubin Test strip Ql (U)O rdered By: Herberth Carlson on 11-21-2024 Bilirubin Ql (U) Negative Negative [facility] Bilirubin, totalOrdered By: Herberth Carlson on 11-21-2024 Bilirubin, total 1.33 mg/dL High 0.00-1.30 [facility] Calcium [Mass/Vol]Ordered By : Herberth Carlson on 11-21-2024 Serum or plasma calcium measurement (mass/volume) 8.7 mg/dL 7.6-11.0 [facility] Carbon dioxide, total [Moles /volume] in Central venous bloodOrdered By: Herberth Carlson on 11-21-2024 Carbon dioxide, total [Moles/volume] in Central venous blood 17.5 mmol/L Low 21.0-32.0 [facility] Chloride assayOrdered By: Kaylyn Carlson on 11-21-2024 Chloride assay 103 mmol/L 98-108 [facility] Clarity (U)Ordered By: Ashish Carlson on 11-21-2024 Urine clarity Sl Cldy Clear [facility] Color (U)Ordered By: Herberth Carlson on 11-21-2024 Urine color determination Yellow Yellow [facility] Creatinine [Mass/Vol]Ordered By: Herberth Carlson on 11-21-2024 Serum creatinine measurement (mass/volume) 1.49 mg/dL High 0.70-1.20 [facility] Eosinophil percentageOrdered By: Herberth Carlson on 11-21-2024 Eosinophil percentage 7.2 % High 0-5 [facility] Erythrocyte distribution wid th (RBC) [Ratio]Ordered By: Herberth Carlson on 11-21-2024 Erythrocyte distribution width ratio 16.8 % High 11.6-14.6 [facility] Erythrocyte distribution width standard deviation 57.1 fl High 35.1-43.9 [facility] Estimation of creatinine carolina aranceOrdered By: Herberth Carlson on 11-21-2024 Estimation of creatinine clearance 64.65 ml/min 50-250 [facility] GFR/1.73 sq M.predicted niki g non-blacks MDRD (S/P/Bld) [Vol rate/Area]Ordered By: Herberth Carlson on 11-21-2024 Glomerular filtration rate (GFR) estimation/1.73 sq m using serum, plasma, or whole b 54 Low >60 [facility] Glucose [Mass/Vol]Ordered By : Herberth Carlson on 11-21-2024 Serum glucose measurement (mass/volume) 188 mg/dL High 70-99 [facility] Hematocrit Auto (Bld) [Volum e fraction]Ordered By: Herberth Carlson on 11-21-2024 Automated blood hematocrit (percentage) 24.6 % Low 40-54 [facility] Hemoglobin measurementOrdere d By: Herberth Carlson on 11-21-2024 Hemoglobin measurement 8.3 g/dL Low 13.0-16.5 [facility] Immature granulocytes/100 WB C Auto (Bld)Ordered By: Herberth Carlson on 11-21-2024 Automated immature granulocyte percentage 0.800 % 0.0-0.9 [facility] International normalized rat io (INR) calculationOrdered By: Herberth Carlson on 11-21-2024 International normalized ratio (INR) calculation 2.6 [facility] Ketones Test strip Ql (U)Ord ered By: Herberth Carlson on 11-21-2024 Ketones Ql (U) Negative Negative [facility] Lactic acid measurementOrder ed By: Herberth Carlson on 11-21-2024 Lactic acid measurement 2.7 mmol/L High 0.0-2.0 [facility] Leukocyte esterase Test stri p Ql (U)Ordered By: Herberth Carlson on 11-21-2024 Urine leukocyte esterase detection by dipstick 500 /ul High Negative [facility] Lymphocytes Auto (Unsp spec) [#/Vol]Ordered By: Herberth Carlson on 11-21-2024 Absolute lymphocyte count 1.33 X10^3/uL 0.83-4.51 [facility] Lymphocytes/100 WBC Auto (Un sp spec)Ordered By: Herberth Carlson on 11-21-2024 Automated lymphocyte count as percentage of total leukocytes 13.9 % Low 19-41 [facility] MCV (RBC) [Entitic vol]Order ed By: Herberth Carlson on 11-21-2024 MCV (mean corpuscular volume) determination 93.2 fL 80-94 [facility] Mean corpuscular hemoglobin (MCH) determinationOrdered By: Herberth Carlson on 11-21-2024 Mean corpuscular hemoglobin (MCH) determination 31.4 pg 27.0-32.0 [facility] Mean corpuscular hemoglobin concentration (MCHC) determinationOrdered By: Herberth Carlson on 11-21-2024 Mean corpuscular hemoglobin concentration (MCHC) determination 33.7 g/dL 32-36 [facility] Mean platelet volume determi nationOrdered By: Herberth Carlson on 11-21-2024 Mean platelet volume determination 11.6 fl 6.2-12.0 [facility] Monocyte percentageOrdered B y: Herberth Carlson on 11-21-2024 Monocyte percentage 9.2 % 0-10 [facility] Mucus LM Ql (Urine sed)Order ed By: Herberth Carlson on 11-21-2024 Mucus Ql (Urine sed) 0 SEEN /hpf [facility] Neutrophil percentageOrdered By: Herberth Carlson on 11-21-2024 Neutrophil percentage 68.7 % 47-70 [facility] Nitrite Test strip Ql (U)Ord ered By: Herberth Carlson on 11-21-2024 Nitrite Ql (U) Negative Negative [facility] No Panel InformationOrdered By: Herberth Carlson on 11-21-2024 112 U/L High <38 [facility] Nucleated red blood cell per centageOrdered By: Herberth Carlson on 11-21-2024 Nucleated red blood cell percentage 0 % 0-5 [facility] Platelet countOrdered By: Kaylyn Carlson on 11-21-2024 Platelet count 167 K/mm3 150-450 [facility] Potassium (Unsp spec) [Mass/ Vol]Ordered By: Herberth Carlson on 11-21-2024 Potassium measurement (mass/volume) 5.0 mmol/L 3.3-5.1 [facility] Protein Test strip Ql (U)Ord ered By: Herberth Carlson on 11-21-2024 Protein Ql (U) 500 mg/dl High Negative [facility] Urine protein assay by test strip, semi-quantitative 500 mg/dl High Negative [facility] Prothrombin timeOrdered By: Herberth Carlson on 11-21-2024 Prothrombin time 28.2 SECONDS High 11.7-14.9 [facility] RBC Auto (Bld) [#/Vol]Ordere d By: Herberth Carlson on 11-21-2024 Automated blood erythrocyte count 2.64 M/mm3 Low 4.6-6.2 [facility] Serum globulin measurementOr dered By: Herberth Carlson on 11-21-2024 Serum globulin measurement 2.7 g/dL 2.2-4.2 [facility] Sodium levelOrdered By: Norman Carlson on 11-21-2024 Sodium level 132 mmol/L Low 133-145 [facility] Specific gravity (U) [Rel de nsity]Ordered By: Herberth Carlson on 11-21-2024 Urine specific gravity measurement 1.015 1.002-1.030 [facility] Squamous epithelial cells de tection in urine sediment by light microscopyOrdered By: Herberth Carlson 11-21-2024 Epithelial cells.squamous LM Ql (Urine sed) 0 SEEN /hpf 0-5 [facility] Squamous epithelial cells detection in urine sediment by light microscopy 0 SEEN /hpf [facility] Total proteinOrdered By: Digna Carlson on 11-21-2024 Total protein 5.2 g/dL Low 5.9-8.4 [facility] Urea nitrogen [Mass/Vol]Orde red By: Herberth Carlson on 11-21-2024 Serum or plasma urea nitrogen measurement (mass/volume) 28 mg/dL High 4-19 [facility] Urine blood detectionOrdered By: Herberth Carlson 11-21-2024 Urine blood detection 250 /ul High Negative [facility] Urine clarityOrdered By: Digna Carlson on 11-21-2024 Clarity (U) Sl Cldy Clear [facility] Urine color determinationOrd ered By: Herberth Calrson on 11-21-2024 Color (U) Yellow Yellow [facility] Urine cultureOrdered By: Digna Carlson on 11-21-2024 Bacteria identified Cx Nom (U) 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 Abnormal [facility] Bacteria identified Cx Nom (U) GPC Poss Enterococcus sp Abnormal [facility] Bacteria identified Cx Nom (U) Positive Abnormal [facility] Urine glucose detectionOrder ed By: Herberth Carlson on 11-21-2024 Glucose Ql (U) Normal mg/dl Normal [facility] Urine glucose detection Normal mg/dl Normal [facility] Urine leukocyte esterase det ection by dipstickOrdered By: Herberth Carlson on 11-21-2024 Leukocyte esterase Test strip Ql (U) 500 /ul High Negative [facility] Urine pHOrdered By: Herberth Carlson on 11-21-2024 pH (U) 6.0 [pH] 5.0 - 8.0 [facility] Urine sediment bacteria coun t by microscopy (number/high power field)Ordered By: Herberth Carlson on 11-21-2024 Bacteria LM.HPF (Urine sed) [#/Area] RARE /hpf None Seen [facility] Urine specific gravity measu rementOrdered By: Herberth Carlson on 11-21-2024 Specific gravity (U) [Rel density] 1.015 1.002-1.030 [facility] Urine total bilirubin detect ion by test stripOrdered By: Herberth Carlson on 11-21-2024 Urine total bilirubin detection by test strip Negative Negative [facility] Urine urobilinogen measureme ntOrdered By: Herberth Carlson on 11-21-2024 Urobilinogen Ql (U) Normal mg/dl Normal [facility] Venous blood ammonia measure mentOrdered By: Herberth Carlson on 11-21-2024 Ammonia (P) [Moles/Vol] 17.9 umol/L 16- [facility] Venous blood ammonia measurement 17.9 umol/L 16-60 [facility] White blood cell (WBC) count Ordered By: Herberth Carlson on 11-21-2024 White blood cell (WBC) count 9.5 K/mm3 4.4-11.0 [facility] White blood cell countOrdere d By: Herberth Carlson on 11-21-2024 White blood cell count >100 SEEN /hpf 0-5 [facility] White blood cell count >100 SEEN /hpf 0-5 [facility] pH (U)Ordered By: Herberth henao on 11-21-2024 Urine pH 6.0 5.0 - 8.0 [facility] Bacteria Ur Culton Bacteria identified Cx Nom (U) CULTURE, URINE: Mixed microbiota, including predominantly: ORGANISM ID: 1 >=100,000 CFU/ml Mary glabrata No susceptibility testing done. Normal [facility] Comment on above: Performed By: #### 6 30-4 ####[facility]CLIA [id number] [facility] [address] [address] [place] Bacteria identified Cx Nom (U) Normal [facility] Comment on above: Performed By: #### 2 4356-8, 630-4 ####[facility]CLIA [id number] [facility] [address] [place] [address] [place] Basic metabolic 2000 panelon 11-18-2024 Anion gap [Moles/Vol] 8 mmol/L Normal 8-15 [facility] Comment on above: Order Comment: Speci men Type: BLOOD SPECIMENOrdering Facility: [facility] Address: [address] [place] [address] Performed By: #### 2 4321-2, 04110-4, 2777-1 ####[facility] LABCLIA [id number] [address] [address] [place] Calcium [Mass/Vol] 8.3 mg/dL Low 8.5-10.2 [facility] Comment on above: Order Comment: Speci men Type: BLOOD SPECIMENOrdering Facility: [facility] Address: [address] [place] [address] Performed By: #### 2 4321-2, 77741-9, 2777-1 ####[facility] LABCLIA [id number] [address] [address] [place] Chloride [Moles/Vol] 102 mmol/L Normal 98-107 [facility] Comment on above: Order Comment: Speci men Type: BLOOD SPECIMENOrdering Facility: [facility] Address: [address] [place] [address] Performed By: #### 2 4321-2, 78713-5, 2776-08 ####[facility] LABCLIA [id number] [address] [address] [place] CO2 [Moles/Vol] 19 mmol/L Low 22-[address] [facility] Comment on above: Order Comment: Speci men Type: BLOOD SPECIMENOrdering Facility: [facility] Address: [address] [place] [address] Performed By: #### 2 4321-2, 60363-1, 2776-08 ####[facility] LABCLIA [id number] [place] [id number] [place] Creatinine [Mass/Vol] 0.95 mg/dL Normal 0.73-1.22 [facility] Comment on above: Order Comment: Speci men Type: BLOOD SPECIMENOrdering Facility: [facility] Address: [address] [place] [address] Performed By: #### 2 432-2, 75861-0, 2776-08 ####[facility] LABIA [id number] [place] [address] [place] Creatinine and Glomerular filtration rate.predicted panel (S/P/Bld) 93 mL/min/1.73m??? Normal >=[address] [facility] Comment on above: Order Comment: Speci men Type: BLOOD SPECIMENOrdering Facility: [facility] Address: [address] [place] [address] Result Comment: Patric mated Glomerular Filtration Rate [...] actual GFR. Performed By: #### 2 4321-2, 58385-1, 2776- ####[facility] LABCLIA [id number] [address] [address] [place] Glucose [Mass/Vol] 248 mg/dL High 74-99 [facility] Comment on above: Order Comment: Speci men Type: BLOOD SPECIMENOrdering Facility: [facility] Address: [address] [place] [address] Result Comment: The [place] [employer] (ADA) provides guidance for cutoff [...] Standards of Medical Care in Diabetes 2016, [place] [employer]. Diabetes Care. 2016.39(Suppl 1). Performed By: #### 2 4321-2, 72489-6, 2777- ####[facility] LABCLIA [id number] [place] [address] [place] Potassium [Moles/Vol] 4.4 mmol/L Normal 3.7-5.1 [facility] Comment on above: Order Comment: Speci men Type: BLOOD SPECIMENOrdering Facility: [facility] Address: [address] [place] [address] Performed By: #### 2 4321-2, 77579-5, 2777 ####[facility] LABCLIA [id number] [place] [address] [place] Sodium [Moles/Vol] 129 mmol/L Low 136-144 [facility] Comment on above: Order Comment: Speci men Type: BLOOD SPECIMENOrdering Facility: [facility] Address: [address] [place] [address] Performed By: #### 2 4321-2, 79083-6, 2777-1 ####[facility] LABCLIA [id number] [place] [id number] [place] Urea nitrogen [Mass/Vol] 16 mg/dL Normal 9-[address] [facility] Comment on above: Order Comment: Speci men Type: BLOOD SPECIMENOrdering Facility: [facility] Address: [address] [place] [address] Performed By: #### 2 4321-2, 21456-9, 2777-1 ####[facility] LABCLIA [id number] [place] [address] [place] CASE MANAGEMon 11-18-2024 CASE MANAGEM Normal [facility] CBC W Auto Differential pane l (Bld)on 11-18-2024 Basophils (Bld) [#/Vol] 10*3/uL Normal <0.11 [facility] Comment on above: Order Comment: Speci men Type: BLOOD SPECIMENOrdering Facility: [facility] Address: [address] [place] [address] Performed By: #### 5 7021-8 ####[facility] LABCLIA [id number] [place] [address] [place] Basophils/100 WBC (Bld) 0.0 % Normal [facility] Comment on above: Order Comment: Speci men Type: BLOOD SPECIMENOrdering Facility: [facility] Address: [address] [place] [address] Performed By: #### 5 7021-8 ####[facility] LABCLIA [id number] [place] [address] [place] Differential cell count method Nom (Bld) Auto Normal [facility] Comment on above: Order Comment: Speci men Type: BLOOD SPECIMENOrdering Facility: [facility] Address: [address] [place] [address] Performed By: #### 5 7021-8 ####[facility] LABCLIA [id number] [place] [id number] [place] Eosinophils (Bld) [#/Vol] 10*3/uL Normal <0.[address] [facility] Comment on above: Order Comment: Speci men Type: BLOOD SPECIMENOrdering Facility: [facility] Address: [address] [place] [address] Performed By: #### 5 7021-8 ####[facility] LABCLIA [id number] [facility] [place] [address] [place] Eosinophils/100 WBC (Bld) 0.1 % Normal [facility] Comment on above: Order Comment: Speci men Type: BLOOD SPECIMENOrdering Facility: [facility] Address: [address] [place] [address] Performed By: #### 5 7021-8 ####[facility] LABIA [id number] [address], [place] [address] [place] Erythrocyte distribution width (RBC) [Ratio] 16.7 % High 11.5-15.[address] [facility] Comment on above: Order Comment: Speci men Type: BLOOD SPECIMENOrdering Facility: [facility] Address: [address] [place] [address] Performed By: #### 5 7021-8 ####[facility] LABIA [id number] [place] [address] [place] Hematocrit (Bld) [Volume fraction] 21.5 % Low 39.0-51.[address] [facility] Comment on above: Order Comment: Speci men Type: BLOOD SPECIMENOrdering Facility: [facility] Address: [address] [place] [address] Performed By: #### 5 7021-8 ####[facility] LABIA [id number] [place] [address] [place] Hemoglobin (Bld) [Mass/Vol] 7.2 g/dL Low 13.0-17.[address] [facility] Comment on above: Order Comment: Speci men Type: BLOOD SPECIMENOrdering Facility: [facility] Address: [address] [place] [address] Performed By: #### 5 7021-8 ####[facility] LABCLIA [id number] [place] [address] [place] Immature granulocytes (Bld) [#/Vol] 0.06 10*3/uL Normal <0.[address] [facility] Comment on above: Order Comment: Speci men Type: BLOOD SPECIMENOrdering Facility: [facility] Address: [address] [place] [address] Performed By: #### 5 7021-8 ####[facility] LABCLIA [id number] [address] [place] Immature granulocytes/100 WBC (Bld) 0.7 % Normal [facility] Comment on above: Order Comment: Speci men Type: BLOOD SPECIMENOrdering Facility: [facility] Address: [address] [place] [address] Performed By: #### 5 7021-8 ####[facility] LABCLIA [id number] [place] [address] [place] Lymphocytes (Bld) [#/Vol] 0.61 10*3/uL Low 1.00-4.[address] [facility] Comment on above: Order Comment: Speci men Type: BLOOD SPECIMENOrdering Facility: [facility] Address: [address] [place] [address] Performed By: #### 5 7021-8 ####[facility] LABCLIA [id number] [place] [address] [place] Lymphocytes/100 WBC (Bld) 7.3 % Normal [facility] Comment on above: Order Comment: Speci men Type: BLOOD SPECIMENOrdering Facility: [facility] Address: [address] [place] [address] Performed By: #### 5 7021-8 ####[facility] LABCLIA [id number] [place] [address] [place] MCH (RBC) [Entitic mass] 30.9 pg Normal 26.0-34.[address] [facility] Comment on above: Order Comment: Speci men Type: BLOOD SPECIMENOrdering Facility: [facility] Address: [address] [place] [address] Performed By: #### 5 7021-8 ####[facility] LABCLIA [id number] [place] [address] [place] MCHC (RBC) [Mass/Vol] 33.5 g/dL Normal 30.5-36.0 [facility] Comment on above: Order Comment: Speci men Type: BLOOD SPECIMENOrdering Facility: [facility] Address: [address] [place] [address] Performed By: #### 5 7021-8 ####[facility] LABIA [id number] [place] [address] [place] MCV (RBC) [Entitic vol] 92.3 fL Normal 80.0-100.0 [facility] Comment on above: Order Comment: Speci men Type: BLOOD SPECIMENOrdering Facility: [facility] Address: [address] [place] [address] Performed By: #### 5 7021-8 ####[facility] LABIA [id number] [place] [address] [place] Monocytes (Bld) [#/Vol] 0.72 10*3/uL Normal <0.[address] [facility] Comment on above: Order Comment: Speci men Type: BLOOD SPECIMENOrdering Facility: [facility] Address: [address] [place] [address] Performed By: #### 5 7021-8 ####[facility] LABCLIA [id number] [address] [place] Monocytes/100 WBC (Bld) 8.7 % Normal [facility] Comment on above: Order Comment: Speci men Type: BLOOD SPECIMENOrdering Facility: [facility] Address: [address] [place] [address] Performed By: #### 5 7021-8 ####[facility] LABCLIA [id number] [address], [place] [address] [place] Neutrophils (Bld) [#/Vol] 6.92 10*3/uL Normal 1.45-7.[address] [facility] Comment on above: Order Comment: Speci men Type: BLOOD SPECIMENOrdering Facility: [facility] Address: [address] [place] [address] Performed By: #### 5 7021-8 ####[facility] [facility] [id number] [address], [place] [address] [place] Neutrophils/100 WBC (Bld) 83.2 % Normal [facility] Comment on above: Order Comment: Speci men Type: BLOOD SPECIMENOrdering Facility: [facility] Address: [address] [place] [address] Performed By: #### 5 7021-8 ####[facility] LABCL[facility] [id number] [address], [place] [address] [place] Nucleated RBC (Bld) [#/Vol] 10*3/uL Normal <0.[address] [facility] Comment on above: Order Comment: Speci men Type: BLOOD SPECIMENOrdering Facility: [facility] Address: [address] [place] [address] Performed By: #### 5 7021-8 ####[facility] LABCLIA [id number] [facility] [address], [facility] [place] Nucleated RBC/100 WBC (Bld) [Ratio] 0.0 /100 WBC Normal [facility] Comment on above: Order Comment: Speci men Type: BLOOD SPECIMENOrdering Facility: [facility] Address: [address] [place] [address] Performed By: #### 5 7021-8 ####[facility]CL[facility] [id number] [place] [address] [place] Platelet mean volume (Bld) [Entitic vol] 12.1 fL Normal 9.0-12.[address] [facility] Comment on above: Order Comment: Speci men Type: BLOOD SPECIMENOrdering Facility: [facility] Address: [address] [place] [address] Performed By: #### 5 7021-8 ####[facility] LABIA [id number] [place] [address] [place] Platelets (Bld) [#/Vol] 76 10*3/uL Low 150-400 [facility] Comment on above: Order Comment: Speci men Type: BLOOD SPECIMENOrdering Facility: [facility] Address: [address] [place] [address] Result Comment: No c lot detected. Performed By: #### 5 7021-8 ####[facility] LABIA [id number] [place] [address] [place] RBC (Bld) [#/Vol] 2.33 10*6/uL Low 4.20-6.00 [facility] Comment on above: Order Comment: Speci men Type: BLOOD SPECIMENOrdering Facility: [facility] Address: [address] [place] [address] Performed By: #### 5 7021-8 ####[facility] LABIA [id number] [place] [address] [place] WBC (Bld) [#/Vol] 8.32 10*3/uL Normal 3.70-11.00 [facility] Comment on above: Order Comment: Speci men Type: BLOOD SPECIMENOrdering Facility: [facility] Address: [address] [place] [address] Performed By: #### 5 7021-8 ####[facility] LABCLIA [id number] [place] [address] [place] CNCOon 11-18-2024 CNCO Letter Text Normal [facility] CNDSon 11-18-2024 CNDS Normal [facility] CNPNon 11-18-2024 CNPN Normal [facility] Fibrinogen PPP-mCncon 2024 Fibrinogen Coag (PPP) [Mass/Vol] 104 mg/dL Low 200-[address] [facility] Comment on above: Order Comment: Speci men Type: BLOOD SPECIMENOrdering Facility: [facility] Address: [address] [place] [address] Performed By: #### 3 255-7, 16974-2 ####[facility]CLIA [id number] [place] [address] [place] Hepatic function 2000 panelo n 11-18-2024 Albumin [Mass/Vol] 2.6 g/dL Low 3.9-4.9 [facility] Comment on above: Order Comment: Speci men Type: BLOOD SPECIMENOrdering Facility: [facility] Address: [address] [place] [address] Performed By: #### 2 4321-2, 64975-0, 2777-1 ####[facility] LABCLIA [id number] [place] [address] [place] ALP [Catalytic activity/Vol] 245 U/L High 38-[address] [facility] Comment on above: Order Comment: Speci men Type: BLOOD SPECIMENOrdering Facility: [facility] Address: [address] [place] [address] Performed By: #### 2 4321-2, 02459-4, 2777-1 ####[facility]CLIA [id number] [address] [address] [place] ALT [Catalytic activity/Vol] 31 U/L Normal 10-[address] [facility] Comment on above: Order Comment: Speci men Type: BLOOD SPECIMENOrdering Facility: [facility] Address: [address] [place] [address] Performed By: #### 2 4321-2, 34305-0, 2777-1 ####[facility]CLIA [id number] [address] [place] [address] [place] AST [Catalytic activity/Vol] 52 U/L High 14-[address] [facility] Comment on above: Order Comment: Speci men Type: BLOOD SPECIMENOrdering Facility: [facility] Address: [address] [place] [address] Performed By: #### 2 4321-2, 07290-3, 277-1 ####[facility]CLIA [id number] [address] [address] [place] Bilirubin [Mass/Vol] 1.2 mg/dL Normal 0.2-1.3 [facility] Comment on above: Order Comment: Speci men Type: BLOOD SPECIMENOrdering Facility: [facility] Address: [address] [place] [address] Performed By: #### 2 4321-2, 12031-5, 27702-01 ####[facility] LABIA [id number] [address] [address] [place] Bilirubin.conjugated [Mass/Vol] 0.7 mg/dL High <0.[address] [facility] Comment on above: Order Comment: Speci men Type: BLOOD SPECIMENOrdering Facility: [facility] Address: [address] [place] [address] Performed By: #### 2 4321-2, 11512-6, 27702-01 ####[facility] LABIA [id number] [address] [address] [place] Protein [Mass/Vol] 5.0 g/dL Low 6.3-8.0 [facility] Comment on above: Order Comment: Speci men Type: BLOOD SPECIMENOrdering Facility: [facility] Address: [address] [place], [place] [address] Performed By: #### 2 4321-2, 03085-4, 2777-1 ####[facility]CL[facility] [id number] [place] [address] [place] NURSING PROGon 11-18-2024 NURSING PROG Normal [facility] PT panel Coag (PPP)on 2024 INR Coag (PPP) [Relative time] 2.0 {INR} High 0.9-1.[address] [facility] Comment on above: Order Comment: Speci men Type: BLOOD SPECIMENOrdering Facility: [facility] Address: [address] [place] [address] Result Comment: Sarah min K Antagonist (VKA) Therapeutic Range: INR 2 to 3 (Target INR of 2.5)Note: For patients treated with VKA drugs, such as warfarin, the [place] [employer] 2012 Guideline recommends [...] of 3).Tammi GH, et al. Chest 2012, 141:7S-47SNishbethel RA, et al. [facility] 2017, 70: 252-289 Performed By: #### 3 255-7, 27751-5 ####[facility]CL[facility] [id number] [place] [address] [place] PT Coag (PPP) [Time] 20.9 s High 9.7-13.0 [facility] Comment on above: Order Comment: Speci men Type: BLOOD SPECIMENOrdering Facility: [facility] Address: [address] [place] [address] Performed By: #### 3 255-7, 89742-2 ####[facility] LABIA [id number] [place] [address] [place] Phosphate SerPl-mCncon 11-18 Phosphate [Mass/Vol] 2.4 mg/dL Low 2.7-4.8 [facility] Comment on above: Order Comment: Speci men Type: BLOOD SPECIMENOrdering Facility: [facility] Address: [address] [place] [address] Performed By: #### 2 4321-2, 97314-2, 2777-1 ####[facility]CLIA [id number] [place] [address] [place] TYPE + SCREENon 11-18-2024 ABO O Normal [facility] Comment on above: Order Comment: Speci men Type: BLOOD SPECIMENOrdering Facility: [facility] Address: [address] [place] [address] Performed By: #### T SCR ####[facility] BLOOD BANKCLIA [id number] [place] [address] [place] Rh Nom (Bld) Positive Normal [facility] Comment on above: Order Comment: Speci men Type: BLOOD SPECIMENOrdering Facility: [facility] Address: [address] [place] [address] Performed By: #### T SCR ####[facility] BLOOD BANKCLIA [id number] [place] [address] [place] TYPE AND SCREEN EXPIRATION 11/21/2024 23:[address] [facility] Comment on above: Order Comment: Speci men Type: BLOOD SPECIMENOrdering Facility: [facility] Address: [address] [place] [address] Performed By: #### T SCR ####[facility] BLOOD BANKIA [id number] [place] [address] [place] Urinalysis complete panel (U )on 11-18-2024 BACTERIA UL 1671.0 uL High Negative [facility] Comment on above: Order Comment: Speci men Type: URINE SPECIMENOrdering Facility: [facility] Address: [address] [place], [place] [address] Performed By: #### 2 4356-8, 630-4 ####[facility] LABCLIA [id number] [place] [address] [place] Bilirubin Ql (U) 2+ Abnormal Negative [facility] Comment on above: Order Comment: Speci men Type: URINE SPECIMENOrdering Facility: [facility] Address: [address] [place] [address] Result Comment: Sugg est correlation with clinical findings and serum bilirubin if clinically indicated. Performed By: #### 2 4356-8, 630-4 ####[facility] LABCLIA [id number] [place] [address] [place] CALCIUM OXALATE CRYSTALS (UA) Few Abnormal None Seen [facility] Comment on above: Order Comment: Speci men Type: URINE SPECIMENOrdering Facility: [facility] Address: [address] [place] [address] Performed By: #### 2 4356-8, 630-4 ####[facility]CLIA [id number] [address], [place] [address] [place] Clarity (Unsp spec) Turbid Abnormal Clear [facility] Comment on above: Order Comment: Speci men Type: URINE SPECIMENOrdering Facility: [facility] Address: [address] [place] [address] Performed By: #### 2 4356-8, 630-4 ####[facility] [id number] [facility] [address], [facility] [place] Color (U) Red Abnormal Yellow [facility] Comment on above: Order Comment: Speci men Type: URINE SPECIMENOrdering Facility: [facility] Address: [address] [place] [address] Performed By: #### 2 4356-8, 630-4 ####[facility] LABCLIA [id number] [place] [address] [place] Epithelial cells LM.HPF (Urine sed) [#/Area] None Seen Normal [facility] Comment on above: Order Comment: Speci men Type: URINE SPECIMENOrdering Facility: [facility] Address: [address] [place] [address] Performed By: #### 2 4356-8, 630-4 ####[facility]CLIA [id number] [address], [place] [address] [place] Glucose Test strip (U) [Mass/Vol] Negative Normal Negative [facility] Comment on above: Order Comment: Speci men Type: URINE SPECIMENOrdering Facility: [facility] Address: [address] [place] [address] Performed By: #### 2 4356-8, 630-4 ####[facility]CL[facility] [id number] [address], [place] [address] [place] Hemoglobin Ql (U) 2+ Abnormal Negative [facility] Comment on above: Order Comment: Speci men Type: URINE SPECIMENOrdering Facility: [facility] Address: [address] [place] [address] Performed By: #### 2 4356-8, 341-4 ####[facility]CLIA [id number] [address], [place] [address] [place] Hyaline casts (Urine sed) [#/Area] 0 /[LPF] Normal 0 /LPF [facility] Comment on above: Order Comment: Speci men Type: URINE SPECIMENOrdering Facility: [facility] Address: [address] [place] [address] Performed By: #### 2 4356-8, 630-4 ####[facility]CLIA [id number] [place] [address] [place] Ketones Ql (U) Negative Normal Negative [facility] Comment on above: Order Comment: Speci men Type: URINE SPECIMENOrdering Facility: [facility] Address: [address] [place] [address] Performed By: #### 2 4356-8, 630-4 ####[facility]CL[facility] [id number] [place] [address] [place] Leukocyte esterase Test strip Ql (U) 3+ Abnormal Negative [facility] Comment on above: Order Comment: Speci men Type: URINE SPECIMENOrdering Facility: [facility] Address: [address] [place] [address] Performed By: #### 2 4356-8, 630-4 ####[facility] LABCLIA [id number] [place] [address] [place] Nitrite Ql (U) Negative Normal Negative [facility] Comment on above: Order Comment: Speci men Type: URINE SPECIMENOrdering Facility: [facility] Address: [address] [place] [address] Result Comment: Resu lt rechecked. Performed By: #### 2 4356-8, 630-4 ####[facility] LABIA [id number] [address], [place] [address] [place] pH (U) 5.0 [pH] Normal <8.[address] [facility] Comment on above: Order Comment: Speci men Type: URINE SPECIMENOrdering Facility: [facility] Address: [address] [place] [address] Performed By: #### 2 4356-8, 630-4 ####[facility]CLIA [id number] [place] [address] [place] Protein (U) [Mass/Vol] 2+ Abnormal Negative [facility] Comment on above: Order Comment: Speci men Type: URINE SPECIMENOrdering Facility: [facility] Address: [address] [place] [address] Performed By: #### 2 4356-8, 630-4 ####[facility] LABCLIA [id number] [address], [facility]95 [place] RBC LM.HPF (Urine sed) [#/Area] /[HPF] Abnormal 0-2 /HPF [facility] Comment on above: Order Comment: Speci men Type: URINE SPECIMENOrdering Facility: [facility] Address: [address] [place] [address] Performed By: #### 2 4356-8, 630-4 ####[facility] LABIA [id number] [place] [address] [place] Specific gravity (U) [Rel density] 1.021 Normal 1.005-1.[address] [facility] Comment on above: Order Comment: Speci men Type: URINE SPECIMENOrdering Facility: [facility] Address: [address] [place] [address] Performed By: #### 2 4356-8, 630-4 ####[facility] [id number] [place] [address] [place] Urobilinogen Ql (U) 0.2 EU/dL Normal 0.2-1.0 EU/dL [facility] Comment on above: Order Comment: Speci men Type: URINE SPECIMENOrdering Facility: [facility] Address: [address] [place] [address] Performed By: #### 2 4356-8, 630-4 ####[facility] [id number] [place] [address] [place] WBC LM.HPF (Urine sed) [#/Area] /[HPF] Abnormal 0-5 /HPF [facility] Comment on above: Order Comment: Speci men Type: URINE SPECIMENOrdering Facility: [facility] Address: [address] [place] [address] Performed By: #### 2 4356-8, 630-4 ####[facility] LABIA [id number] [place] [address] [place] Yeast.budding LM.HPF (Urine sed) [#/Area] Present Abnormal None Seen [facility] Comment on above: Order Comment: Speci men Type: URINE SPECIMENOrdering Facility: [facility] Address: [address] [place] [address] Performed By: #### 2 4356-8, 630-4 ####[facility] LABCLIA [id number] [address] [address] [place] Basic metabolic 2000 panelon 11-17-2024 Anion gap [Moles/Vol] 10 mmol/L Normal 8-15 [facility] Comment on above: Order Comment: Speci men Type: BLOOD SPECIMENOrdering Facility: [facility] Address: [address] [place] [address] Performed By: #### 2 4321-2, 97100-3, 2777-1 ####[facility] LABCLIA [id number] [address] [address] [place] Calcium [Mass/Vol] 8.9 mg/dL Normal 8.5-10.2 [facility] Comment on above: Order Comment: Speci men Type: BLOOD SPECIMENOrdering Facility: [facility] Address: [address] [place] [address] Performed By: #### 2 4321-2, 27450-0, 2777-1 ####[facility] LABIA [id number] [address] [address] [place] Chloride [Moles/Vol] 105 mmol/L Normal 98-107 [facility] Comment on above: Order Comment: Speci men Type: BLOOD SPECIMENOrdering Facility: [facility] Address: [address] [place] [address] Performed By: #### 2 4321-2, 27314-0, 2777-1 ####[facility] LABIA [id number] [address] [address] [place] CO2 [Moles/Vol] 17 mmol/L Low 22-[address] [facility] Comment on above: Order Comment: Speci men Type: BLOOD SPECIMENOrdering Facility: [facility] Address: [address] [place] [id number] Performed By: #### 2 4321-2, 45143-2, 277- ####[facility] LABIA [id number] [address] [address] [place] Creatinine [Mass/Vol] 0.77 mg/dL Normal 0.73-1.22 [facility] Comment on above: Order Comment: Speci men Type: BLOOD SPECIMENOrdering Facility: [facility] Address: [address] [place] [address] Performed By: #### 2 4321-2, 90987-3, 2776-08 ####[facility] [id number] [place] [address] [place] Creatinine and Glomerular filtration rate.predicted panel (S/P/Bld) 104 mL/min/1.73m??? Normal >=[address] [facility] Comment on above: Order Comment: Ezekiel men Type: BLOOD SPECIMENOrdering Facility: [facility] Address: [address] [place] [address] Result Comment: Patric mated Glomerular Filtration Rate [...] actual GFR. Performed By: #### 2 4321-2, 86997-7, 2776-08 ####[facility] LABIA [id number] [address] [address] [place] Glucose [Mass/Vol] 291 mg/dL High 74-99 [facility] Comment on above: Order Comment: Ezekiel men Type: BLOOD SPECIMENOrdering Facility: [facility] Address: [address] [place] [id number] Result Comment: The [place] [employer] (ADA) provides guidance for cutoff [...] Standards of Medical Care in Diabetes 2016, [place] [employer]. Diabetes Care. 2016.39(Suppl 1). Performed By: #### 2 4321-2, 29557-0, 277- ####[facility] LABIA [id number] [place] [address] [place] Potassium [Moles/Vol] 4.5 mmol/L Normal 3.7-5.1 [facility] Comment on above: Order Comment: Speci men Type: BLOOD SPECIMENOrdering Facility: [facility] Address: [address] [place] [address] Performed By: #### 2 432-2, 65130-2, 2776- ####[facility] [id number] [place] [address] [place] Sodium [Moles/Vol] 132 mmol/L Low 136-144 [facility] Comment on above: Order Comment: Speci men Type: BLOOD SPECIMENOrdering Facility: [facility] Address: [address] [place] [address] Performed By: #### 2 4321-2, 75745-7, 2776- ####[facility] LABIA [id number] [place] [address] [place] Urea nitrogen [Mass/Vol] 9 mg/dL Normal 9-[address] [facility] Comment on above: Order Comment: Speci men Type: BLOOD SPECIMENOrdering Facility: [facility] Address: [address] [place] [address] Performed By: #### 2 432-2, 73474-5, 2777-1 ####[facility] LABCLIA [id number] [address], [facility] [place] CASE MANAGEMon 11-17-2024 CASE MANAGEM Normal [facility] CBC W Auto Differential pane l (Bld)on 11-17-2024 Basophils (Bld) [#/Vol] 10*3/uL Normal <0.11 [facility] Comment on above: Order Comment: Speci men Type: BLOOD SPECIMENOrdering Facility: [facility] Address: [address] [place] [address] Performed By: #### 5 7021-8 ####[facility] LABCLIA [id number] [place] [address] [place] Basophils/100 WBC (Bld) 0.0 % Normal [facility] Comment on above: Order Comment: Speci men Type: BLOOD SPECIMENOrdering Facility: [facility] Address: [address] [place] [address] Performed By: #### 5 7021-8 ####[facility]CLIA [id number] [place] [address] [place] Differential cell count method Nom (Bld) Auto Normal [facility] Comment on above: Order Comment: Speci men Type: BLOOD SPECIMENOrdering Facility: [facility] Address: [address] [place] [address] Performed By: #### 5 7021-8 ####[facility]CL[facility] [id number] [facility] [address] [address] [place] Eosinophils (Bld) [#/Vol] 10*3/uL Normal <0.[address] [facility] Comment on above: Order Comment: Speci men Type: BLOOD SPECIMENOrdering Facility: [facility] Address: [address] [place] [address] Performed By: #### 5 7021-8 ####[facility]CLIA [id number] [address], [facility] [place] Eosinophils/100 WBC (Bld) 0.0 % Normal [facility] Comment on above: Order Comment: Speci men Type: BLOOD SPECIMENOrdering Facility: [facility] Address: [address] [place] [address] Performed By: #### 5 7021-8 ####[facility]CL[facility] [id number] [address], [place] [address] [place] Erythrocyte distribution width (RBC) [Ratio] 16.9 % High 11.5-15.[address] [facility] Comment on above: Order Comment: Speci men Type: BLOOD SPECIMENOrdering Facility: [facility] Address: [address] [place] [address] Performed By: #### 5 7021-8 ####[facility]CLIA [id number] [address], [place] [address] [place] Hematocrit (Bld) [Volume fraction] 22.7 % Low 39.0-51.[address] [facility] Comment on above: Order Comment: Speci men Type: BLOOD SPECIMENOrdering Facility: [facility] Address: [address] [place] [address] Performed By: #### 5 7021-8 ####[facility]CLIA [id number] [address], [place] [address] [place] Hemoglobin (Bld) [Mass/Vol] 7.7 g/dL Low 13.0-17.[address] [facility] Comment on above: Order Comment: Speci men Type: BLOOD SPECIMENOrdering Facility: [facility] Address: [address] [place] [address] Performed By: #### 5 7021-8 ####[facility]CL[facility] [id number] [address] [address], [facility] [place] Immature granulocytes (Bld) [#/Vol] 0.03 10*3/uL Normal <0.[address] [facility] Comment on above: Order Comment: Speci men Type: BLOOD SPECIMENOrdering Facility: [facility] Address: [address] [place] [address] Performed By: #### 5 7021-8 ####[facility] [id number] [place] [address] [place] Immature granulocytes/100 WBC (Bld) 0.9 % Normal [facility] Comment on above: Order Comment: Speci men Type: BLOOD SPECIMENOrdering Facility: [facility] Address: [address] [place] [address] Performed By: #### 5 7021-8 ####[facility] [id number] [place] [address] [place] Lymphocytes (Bld) [#/Vol] 0.28 10*3/uL Low 1.00-4.[address] [facility] Comment on above: Order Comment: Speci men Type: BLOOD SPECIMENOrdering Facility: [facility] Address: [address] [place] [address] Performed By: #### 5 7021-8 ####[facility] [id number] [place] [address] [place] Lymphocytes/100 WBC (Bld) 8.3 % Normal [facility] Comment on above: Order Comment: Speci men Type: BLOOD SPECIMENOrdering Facility: [facility] Address: [address] [place] [address] Performed By: #### 5 7021-8 ####[facility] [id number] [place] [id number] [place] MCH (RBC) [Entitic mass] 31.7 pg Normal 26.0-34.[address] [facility] Comment on above: Order Comment: Speci men Type: BLOOD SPECIMENOrdering Facility: [facility] Address: [address] [place] [address] Performed By: #### 5 7021-8 ####[facility] [id number] [place] [address] [place] MCHC (RBC) [Mass/Vol] 33.9 g/dL Normal 30.5-36.0 [facility] Comment on above: Order Comment: Speci men Type: BLOOD SPECIMENOrdering Facility: [facility] Address: [address] [place] [address] Performed By: #### 5 7021-8 ####[facility] [id number] [place] [address] [place] MCV (RBC) [Entitic vol] 93.4 fL Normal 80.0-100.0 [facility] Comment on above: Order Comment: Speci men Type: BLOOD SPECIMENOrdering Facility: [facility] Address: [address] [place] [address] Performed By: #### 5 7021-8 ####[facility] [id number] [place] [address] [place] Monocytes (Bld) [#/Vol] 0.17 10*3/uL Normal <0.[address] [facility] Comment on above: Order Comment: Speci men Type: BLOOD SPECIMENOrdering Facility: [facility] Address: [address] [place] [address] Performed By: #### 5 7021-8 ####[facility] [id number] [place] [address] [place] Monocytes/100 WBC (Bld) 5.0 % Normal [facility] Comment on above: Order Comment: Speci men Type: BLOOD SPECIMENOrdering Facility: [facility] Address: [address] [place] [address] Performed By: #### 5 7021-8 ####[facility] [id number] [place] [id number] [place] Neutrophils (Bld) [#/Vol] 2.89 10*3/uL Normal 1.45-7.[address] [facility] Comment on above: Order Comment: Speci men Type: BLOOD SPECIMENOrdering Facility: [facility] Address: [address] [place] [address] Performed By: #### 5 7021-8 ####[facility] [id number] [place] [address] [place] Neutrophils/100 WBC (Bld) 85.8 % Normal [facility] Comment on above: Order Comment: Speci men Type: BLOOD SPECIMENOrdering Facility: [facility] Address: [address] [place] [address] Performed By: #### 5 7021-8 ####[facility] [id number] [place] [address] [place] Nucleated RBC (Bld) [#/Vol] 10*3/uL Normal <0.[address] [facility] Comment on above: Order Comment: Speci men Type: BLOOD SPECIMENOrdering Facility: [facility] Address: [address] [place] [address] Performed By: #### 5 7021-8 ####[facility]IA [id number] [place] [address] [place] Nucleated RBC/100 WBC (Bld) [Ratio] 0.0 /100 WBC Normal [facility] Comment on above: Order Comment: Speci men Type: BLOOD SPECIMENOrdering Facility: [facility] Address: [address] [place] [address] Performed By: #### 5 7021-8 ####[facility]IA [id number] [place] [address] [place] Platelet mean volume (Bld) [Entitic vol] 12.0 fL Normal 9.0-12.[address] [facility] Comment on above: Order Comment: Speci men Type: BLOOD SPECIMENOrdering Facility: [facility] Address: [address] [place] [address] Performed By: #### 5 7021-8 ####[facility] [id number] [address] [address] [place] Platelets (Bld) [#/Vol] 57 10*3/uL Low 150-400 [facility] Comment on above: Order Comment: Speci men Type: BLOOD SPECIMENOrdering Facility: [facility] Address: [address] [place] [address] Performed By: #### 5 7021-8 ####[facility] [id number] [place] [address] [place] RBC (Bld) [#/Vol] 2.43 10*6/uL Low 4.20-6.00 [facility] Comment on above: Order Comment: Speci men Type: BLOOD SPECIMENOrdering Facility: [facility] Address: [address] [place] [address] Performed By: #### 5 7021-8 ####[facility] [id number] [place] [address] [place] WBC (Bld) [#/Vol] 3.37 10*3/uL Low 3.70-11.00 [facility] Comment on above: Order Comment: Speci men Type: BLOOD SPECIMENOrdering Facility: [facility] Address: [address] [place] [address] Performed By: #### 5 7021-8 ####[facility] [id number] [place] [address] [place] CONSULT PROGon 11-17-2024 CONSULT PROG Normal [facility] Fact Xa PPP-aCncon Coagulation factor X activated act Coag Qn (PPP) <0.10 Normal <0.[address] [facility] Comment on above: Order Comment: Speci men Type: BLOOD SPECIMENOrdering Facility: [facility] Address: [address] [place] [address] Result Comment: The recommended therapeutic range for treatment of venous and arterial thrombosis with intravenous unfractionated heparin is an anti Xa activity level of 0.3 to 0.7 IU/mL. In patients with concomitant therapy with thrombolytic agents and/or platelet glycoprotein IIb/IIIa antagonists, the recommended therapeutic range is an anti Xa activity level of 0.2 to 0.5 IU/mL. Performed By: #### 3 217-7 ####[facility] LABIA [id number] [place] [address] [place] Fibrinogen PPP-mCncon 2024 Fibrinogen Coag (PPP) [Mass/Vol] 114 mg/dL Low 200-[address] [facility] Comment on above: Order Comment: Ezekiel ramirez Type: BLOOD SPECIMENOrdering Facility: [facility] Address: [address] [place] [address] Performed By: #### 3 255-7, 98818-7 ####[facility] [id number] [address] [place] Hepatic function 2000 panelo n 11-17-2024 Albumin [Mass/Vol] 2.7 g/dL Low 3.9-4.9 [facility] Comment on above: Order Comment: Ezekiel ramirez Type: BLOOD SPECIMENOrdering Facility: [facility] Address: [address] [place] [address] Performed By: #### 2 4321-2, 24249-0, 2777-1 ####[facility] [id number] [place] [address] [place] ALP [Catalytic activity/Vol] 276 U/L High 38-[address] [facility] Comment on above: Order Comment: Ezekiel ramirez Type: BLOOD SPECIMENOrdering Facility: [facility] Address: [address] [place] [address] Performed By: #### 2 4321-2, 87187-2, 2777-1 ####[facility]IA [id number] [place] [id number] [place] ALT [Catalytic activity/Vol] 35 U/L Normal 10-[address] [facility] Comment on above: Order Comment: Speci men Type: BLOOD SPECIMENOrdering Facility: [facility] Address: [address] [place] [address] Performed By: #### 2 4321-2, 77725-2, 2776-08 ####[facility] [id number] [facility] [place] [id number] [place] AST [Catalytic activity/Vol] 80 U/L High 14-[address] [facility] Comment on above: Order Comment: Speci men Type: BLOOD SPECIMENOrdering Facility: [facility] Address: [address] [place] [address] Performed By: #### 2 4321-2, 24235-5, 2776-08 ####[facility] [id number] [place] [address] [place] Bilirubin [Mass/Vol] 1.8 mg/dL High 0.2-1.3 [facility] Comment on above: Order Comment: Speci men Type: BLOOD SPECIMENOrdering Facility: [facility] Address: [address] [place] [address] Performed By: #### 2 4321-2, 62205-9, 2776-08 ####[facility] [id number] [place] [address] [place] Bilirubin.conjugated [Mass/Vol] 1.0 mg/dL High <0.[address] [facility] Comment on above: Order Comment: Speci men Type: BLOOD SPECIMENOrdering Facility: [facility] Address: [address] [place], [place] [address] Performed By: #### 2 4321-2, 27150-8, 2776-08 ####[facility] [id number] [facility] [address] [place] [address] [place] Protein [Mass/Vol] 5.2 g/dL Low 6.3-8.0 [facility] Comment on above: Order Comment: Speci men Type: BLOOD SPECIMENOrdering Facility: [facility] Address: [address] [place] [address] Performed By: #### 2 4321-2, 51729-3, 2777-1 ####[facility] [id number] [place] [address] [place] NUTRITIONon 11-17-2024 NUTRITION Normal [facility] PSA/PROSTATE SPECIFIC ANTIGE N SCREENINGon 11-17-2024 Prostate specific Ag [Mass/Vol] 0.52 ng/mL Normal <2.[address] [facility] Comment on above: Order Comment: Speci men Type: BLOOD SPECIMENOrdering Facility: [facility] Address: [address] [place] [address] Result Comment: Tota l PSA test methodology used is the Electrochemiluminescence Immunoassay by Khush. Total PSA values by differing methodologies cannot be interchanged. Performed By: #### P SAS1 ####[facility] [id number] [place] [address] [place] PT panel Coag (PPP)on 2024 INR Coag (PPP) [Relative time] 2.0 {INR} High 0.9-1.[address] [facility] Comment on above: Order Comment: Speci men Type: BLOOD SPECIMENOrdering Facility: [facility] Address: [address] [place] [address] Result Comment: Sarah min K Antagonist (VKA) Therapeutic Range: INR 2 to 3 (Target INR of 2.5)Note: For patients treated with VKA drugs, such as warfarin, the [place] [employer] 2012 Guideline recommends [...] of 2.5 to 3.5 (target INR of 3).Andrett GH, et al. Chest 2012, 141:7S-47SNishimura RA, et al. [facility] 2017, 70: 252-289 Performed By: #### 3 255-7, 44677-6 ####[facility] [id number] [place] [id number] [place] PT Coag (PPP) [Time] 20.6 s High 9.7-13.0 [facility] Comment on above: Order Comment: Speci men Type: BLOOD SPECIMENOrdering Facility: [facility] Address: [address] [place] [address] Performed By: #### 3 255-7, 07951-0 ####[facility] [id number] [place] [id number] [place] PTT, ANTICOAGULANT THERAPYon 11-17-2024 aPTT Coag (PPP) [Time] 41.6 s High 23.0-32.4 [facility] Comment on above: Order Comment: Speci men Type: BLOOD SPECIMENOrdering Facility: [facility] Address: [address] [place] [address] Performed By: #### P [facility] ####[facility]IA [id number] [place] [id number] [place] Phosphate SerPl-mCncon 11-17 Phosphate [Mass/Vol] 1.9 mg/dL Low 2.7-4.8 [facility] Comment on above: Order Comment: Speci men Type: BLOOD SPECIMENOrdering Facility: [facility] Address: [address] [place] [address] Performed By: #### 2 4321-2, 75192-1, 2777-1 ####[facility]IA [id number] [place] [id number] [place] THERAPY NTon 11-17-2024 THERAPY NT Normal [facility] aPTT PPPon 11-17-2024 aPTT Coag (PPP) [Time] s High 23.0-32.4 Cl [facility] Comment on above: Order Comment: Spechelder ramirez Type: BLOOD SPECIMENOrdering Facility: [facility] Address: [address] [place] [address] Result Comment: Resu lt rechecked.Sample checked for clot. Performed By: #### 1 4979-9, PTTAC ####[facility] [id number] [place] [address] [place] ANES POSTPROC EVALon 025 ANES POSTPROC EVAL Normal [facility] ANES PRE-OPon 11-16-2024 ANES PRE-OP Normal [facility] Albumin Fld-mCncon Albumin (Body fld) [Mass/Vol] 0.2 g/dL Normal See Comment [facility] Comment on above: Order Comment: Spechelder ramirez Type: FLUID SPECIMENOrdering Facility: [facility] Address: [address] [place] [address] Result Comment: Body Fluid Albumin may be [...] document C49A. PAULETTE Diaz: Clinical Laboratory Standards [place]: 2007.2. Amy JACKSON. Serum to ascites albumin gradient. UpToDate. 2015. Accessed on November 15, 2015.This test was developed, and its performance characteristics determined by the [facility] Department of Pathology and Laboratory Medicine. It has not been cleared or approved by the FDA. The [facility] Department of Pathology and Laboratory Medicine is regulated under CLIA as qualified to perform high-complexity testing. This test is used for clinical purposes. It should not be regarded as investigational or for research. Performed By: #### 1 795-4, 2881-1, 1745 ####[facility] [id number] [place] [id number] [place] Fluid Nom (Body fld) Ascites Fluid Normal C [facility] Comment on above: Order Comment: Speci men Type: FLUID SPECIMENOrdering Facility: [facility] Address: [address] [place] [address] Performed By: #### 1 795-4, 2881-1, 17402-05 ####[facility] [id number] [address] [facility] Amylase Fld-cCncon 5 Amylase (Body fld) [Catalytic activity/Vol] 17 U/L Normal See Comment [facility] Comment on above: Order Comment: Speci men Type: FLUID SPECIMENOrdering Facility: [facility] Address: [address] [place] [address] Result Comment: PLEU RAL FLUIDS:Amylase measurement in [...] document C49-A. PAULETTE Diaz: Clinical Laboratory Standards [place]; 2007.3. [facility], John RC, Star DJ. Use of cyst fluid CEA, CA19-9, and amylase for evaluation of pancreatic lesions. Clinical Biochemistry. 2009;42:6115-4344.This test was developed, and its performance characteristics determined by the [facility] Department of Pathology and Laboratory Medicine. It has not been cleared or approved by the FDA. The [facility] Department of Pathology and Laboratory Medicine is regulated under CLIA as qualified to perform high-complexity testing. This test is used for clinical purposes. It should not be regarded as investigational or for research. Performed By: #### 1 795-4, 2881-1, 1747-5 ####[facility] [id number] [address] [place] BODY FLUID CELL COUNTon 04-1 Clarity (Unsp spec) Clear Normal Clear [facility] Comment on above: Order Comment: Speci men Type: FLUID SPECIMENOrdering Facility: [facility] Address: [address] [place] [address] Performed By: #### C CBF, [id number] ####[facility] [id number] [place] [address] [place] Color (Body fld) Yellow Normal Yellow [facility] Comment on above: Order Comment: Speci men Type: FLUID SPECIMENOrdering Facility: [facility] Address: [address] [place] [address] Performed By: #### C CBF, [id number] ####[facility] [id number] [place] [id number] [place] RBC Manual cnt (Body fld) [#/Vol] 3000 /uL High <[address] [facility] Comment on above: Order Comment: Speci men Type: FLUID SPECIMENOrdering Facility: [facility] Address: [address] [place] [address] Performed By: #### C CBF, [id number] ####[facility] [id number] [facility] [address] [place] [address] [place] Specimen source Nom (Body fld) Ascites Fluid Normal [facility] Comment on above: Order Comment: Speci men Type: FLUID SPECIMENOrdering Facility: [facility] Address: [address] [place] [address] Performed By: #### C JOSE, [id number] ####[facility] [id number] [address] [place] [address] [place] WBC Manual cnt (Body fld) [#/Vol] 58 /uL Normal <[address] [facility] Comment on above: Order Comment: Speci men Type: FLUID SPECIMENOrdering Facility: [facility] Address: [address] [place] [address] Performed By: #### C JOSE, [id number] ####[facility] [id number] [address] [place] [address] [place] Bacteria Fld Culton 11-17-19 25 Bacteria identified Cx Nom (Body fld) CULTURE, BODY FLD: No growth GRAM STAIN: No organisms seen Few Polymorphonuclear leukocytes Gram stain performed on cytospun specimen. Gram stain from primary specimen Normal [facility] Comment on above: Performed By: #### 6 35-3, 611-4 ####[facility] [id number] [address] [address] [place] Bacteria Spec Anaerobe Culto n 11-16-2024 Bacteria identified Anaer cx Nom (Unsp spec) Negative Normal [facility] Comment on above: Performed By: #### 6 35-3, 611-4 ####[facility] [id number] [address] [place] [address] [place] Basic metabolic 2000 panelon 11-16-2024 Anion gap [Moles/Vol] 10 mmol/L Normal 8-15 [facility] Comment on above: Order Comment: Speci men Type: BLOOD SPECIMENOrdering Facility: [facility] Address: [address] [place], [place] [address] Performed By: #### 2 4321-2, 95931-0, 2776-08 ####[facility] [id number] [address] [address] [place] Calcium [Mass/Vol] 8.4 mg/dL Low 8.5-10.2 [facility] Comment on above: Order Comment: Speci men Type: BLOOD SPECIMENOrdering Facility: [facility] Address: [address] [place], [place] [address] Performed By: #### 2 4321-2, 97372-4, 2776-08 ####[facility] [id number] [place] [id number] [place] Chloride [Moles/Vol] 102 mmol/L Normal 98-107 [facility] Comment on above: Order Comment: Speci men Type: BLOOD SPECIMENOrdering Facility: [facility] Address: [address] [place], [place] [address] Performed By: #### 2 4321-2, 95631-7, 2776-08 ####[facility] [id number] [place] [address] [place] CO2 [Moles/Vol] 18 mmol/L Low 22-[address] [facility] Comment on above: Order Comment: Speci men Type: BLOOD SPECIMENOrdering Facility: [facility] Address: [address] [place], [place] [address] Performed By: #### 2 4321-2, 00145-7, 2776-08 ####[facility] [id number] [place] [id number] [place] Creatinine [Mass/Vol] 0.73 mg/dL Normal 0.73-1.22 [facility] Comment on above: Order Comment: Speci men Type: BLOOD SPECIMENOrdering Facility: [facility] Address: [address] [place] [address] Performed By: #### 2 4321-2, 83645-9, 2777-1 ####[facility] [id number] [place] [address] [place] Creatinine and Glomerular filtration rate.predicted panel (S/P/Bld) 105 mL/min/1.73m??? Normal >=[address] [facility] Comment on above: Order Comment: Ezekiel ramirez Type: BLOOD SPECIMENOrdering Facility: [facility] Address: [address] [place] [address] Result Comment: Patric mated Glomerular Filtration Rate [...] actual GFR. Performed By: #### 2 4321-2, 30187-5, 2777-1 ####[facility] [id number] [place] [address] [place] Glucose [Mass/Vol] 181 mg/dL High 74-99 [facility] Comment on above: Order Comment: Ezekiel ramirez Type: BLOOD SPECIMENOrdering Facility: [facility] Address: [address] [place] [address] Result Comment: The [place] [employer] Association (ADA) provides guidance for cutoff [...] Standards of Medical Care in Diabetes 2016, [place] [employer]. Diabetes Care. 2016.39(Suppl 1). Performed By: #### 2 4321-2, 82856-3, 2777-1 ####[facility] [id number] [place] [id number] [place] Potassium [Moles/Vol] 3.6 mmol/L Low 3.7-5.1 [facility] Comment on above: Order Comment: Speci men Type: BLOOD SPECIMENOrdering Facility: [facility] Address: [address] [place] [address] Performed By: #### 2 4321-2, 04026-0, 2777-1 ####[facility] [id number] [place] [address] [place] Sodium [Moles/Vol] 130 mmol/L Low 136-144 [facility] Comment on above: Order Comment: Speci men Type: BLOOD SPECIMENOrdering Facility: [facility] Address: [address] [place] [address] Performed By: #### 2 4321-2, 67188-2, 2777-1 ####[facility] [id number] [place] [id number] [place] Urea nitrogen [Mass/Vol] 9 mg/dL Normal 9-[address] [facility] Comment on above: Order Comment: Speci men Type: BLOOD SPECIMENOrdering Facility: [facility] Address: [address] [place] [address] Performed By: #### 2 4321-2, 04907-9, 2777-1 ####[facility] [id number] [address] [address] [place] CBC W Auto Differential pane l (Bld)on 11-16-2024 Basophils (Bld) [#/Vol] 0.05 10*3/uL Normal <0.[address] [facility] Comment on above: Order Comment: Speci men Type: BLOOD SPECIMENOrdering Facility: [facility] Address: [address] [place] [address] Performed By: #### 5 7021-8 ####[facility] [id number] [address], [place] [address] [place] Basophils/100 WBC (Bld) 0.8 % Normal [facility] Comment on above: Order Comment: Speci men Type: BLOOD SPECIMENOrdering Facility: [facility] Address: [address] [place] [address] Performed By: #### 5 7021-8 ####[facility] LABCLIA [id number] [address], [place] [address] [place] Differential cell count method Nom (Bld) Auto Normal [facility] Comment on above: Order Comment: Speci men Type: BLOOD SPECIMENOrdering Facility: [facility] Address: [address] [place] [address] Performed By: #### 5 7021-8 ####[facility]CL[facility] [id number] [place] [address] [place] Eosinophils (Bld) [#/Vol] 0.22 10*3/uL Normal <0.[address] [facility] Comment on above: Order Comment: Speci men Type: BLOOD SPECIMENOrdering Facility: [facility] Address: [address] [place] [address] Performed By: #### 5 7021-8 ####[facility]CLIA [id number] [address] STATES OF [facility] Eosinophils/100 WBC (Bld) 3.6 % Normal [facility] Comment on above: Order Comment: Speci men Type: BLOOD SPECIMENOrdering Facility: [facility] Address: [address] [place] [address] Performed By: #### 5 7021-8 ####[facility]CL[facility] [id number] [place] [address] [place] Erythrocyte distribution width (RBC) [Ratio] 16.7 % High 11.5-15.[address] [facility] Comment on above: Order Comment: Speci men Type: BLOOD SPECIMENOrdering Facility: [facility] Address: [address] [place] [address] Performed By: #### 5 7021-8 ####[facility] LABIA [id number] [address] [address] [place] Hematocrit (Bld) [Volume fraction] 24.0 % Low 39.0-51.[address] [facility] Comment on above: Order Comment: Speci men Type: BLOOD SPECIMENOrdering Facility: [facility] Address: [address] [place] [address] Performed By: #### 5 7021-8 ####[facility] LABIA [id number] [place] [address] [place] Hemoglobin (Bld) [Mass/Vol] 8.3 g/dL Low 13.0-17.[address] [facility] Comment on above: Order Comment: Speci men Type: BLOOD SPECIMENOrdering Facility: [facility] Address: [address] [place] [address] Performed By: #### 5 7021-8 ####[facility] LABIA [id number] [place] [address] [place] Immature granulocytes (Bld) [#/Vol] 0.05 10*3/uL Normal <0.[address] [facility] Comment on above: Order Comment: Speci men Type: BLOOD SPECIMENOrdering Facility: [facility] Address: [address] [place] [address] Performed By: #### 5 7021-8 ####[facility] LABIA [id number] [place] [address] [place] Immature granulocytes/100 WBC (Bld) 0.8 % Normal [facility] Comment on above: Order Comment: Speci men Type: BLOOD SPECIMENOrdering Facility: [facility] Address: [address] [place] [address] Performed By: #### 5 7021-8 ####[facility]CLIA [id number] [place] [address] [place] Lymphocytes (Bld) [#/Vol] 0.75 10*3/uL Low 1.00-4.[address] [facility] Comment on above: Order Comment: Speci men Type: BLOOD SPECIMENOrdering Facility: [facility] Address: [address] [place] [address] Performed By: #### 5 7021-8 ####[facility]CLIA [id number] [place] [address] [place] Lymphocytes/100 WBC (Bld) 12.4 % Normal [facility] Comment on above: Order Comment: Speci men Type: BLOOD SPECIMENOrdering Facility: [facility] Address: [address] [place] [address] Performed By: #### 5 7021-8 ####[facility] LABIA [id number] [place] [address] [place] MCH (RBC) [Entitic mass] 31.9 pg Normal 26.0-34.[address] [facility] Comment on above: Order Comment: Speci men Type: BLOOD SPECIMENOrdering Facility: [facility] Address: [address] [place] [address] Performed By: #### 5 7021-8 ####[facility]CLIA [id number] [place] [address] [place] MCHC (RBC) [Mass/Vol] 34.6 g/dL Normal 30.5-36.0 [facility] Comment on above: Order Comment: Speci men Type: BLOOD SPECIMENOrdering Facility: [facility] Address: [address] [place] [address] Performed By: #### 5 7021-8 ####[facility]CLIA [id number] [place] [address] [place] MCV (RBC) [Entitic vol] 92.3 fL Normal 80.0-100.0 [facility] Comment on above: Order Comment: Speci men Type: BLOOD SPECIMENOrdering Facility: [facility] Address: [address] [place] [address] Performed By: #### 5 7021-8 ####[facility]CL[facility] [id number] [facility] [place] [address] [place] Monocytes (Bld) [#/Vol] 0.68 10*3/uL Normal <0.[address] [facility] Comment on above: Order Comment: Speci men Type: BLOOD SPECIMENOrdering Facility: [facility] Address: [address] [place] [address] Performed By: #### 5 7021-8 ####[facility] LABCLIA [id number] [facility] [place] [place] [address] [place] Monocytes/100 WBC (Bld) 11.3 % Normal [facility] Comment on above: Order Comment: Speci men Type: BLOOD SPECIMENOrdering Facility: [facility] Address: [address] [place] [address] Performed By: #### 5 7021-8 ####[facility]CL[facility] [id number] [place] [address] [place] Neutrophils (Bld) [#/Vol] 4.28 10*3/uL Normal 1.45-7.[address] [facility] Comment on above: Order Comment: Speci men Type: BLOOD SPECIMENOrdering Facility: [facility] Address: [address] [place] [address] Performed By: #### 5 7021-8 ####[facility]CLIA [id number] [place] [address] [place] Neutrophils/100 WBC (Bld) 71.1 % Normal [facility] Comment on above: Order Comment: Speci men Type: BLOOD SPECIMENOrdering Facility: [facility] Address: [address] [place] [address] Performed By: #### 5 7021-8 ####[facility]CLIA [id number] [place] [address] [place] Nucleated RBC (Bld) [#/Vol] 10*3/uL Normal <0.[address] [facility] Comment on above: Order Comment: Speci men Type: BLOOD SPECIMENOrdering Facility: [facility] Address: [address] [place] [address] Performed By: #### 5 7021-8 ####[facility] LABIA [id number] [place] [address] [place] Nucleated RBC/100 WBC (Bld) [Ratio] 0.0 /100 WBC Normal [facility] Comment on above: Order Comment: Speci men Type: BLOOD SPECIMENOrdering Facility: [facility] Address: [address] [place] [address] Performed By: #### 5 7021-8 ####[facility] LABIA [id number] [place] [address] [place] Platelet mean volume (Bld) [Entitic vol] 11.8 fL Normal 9.0-12.[address] [facility] Comment on above: Order Comment: Speci men Type: BLOOD SPECIMENOrdering Facility: [facility] Address: [address] [place] [address] Performed By: #### 5 7021-8 ####[facility] LABIA [id number] [place] [address] [place] Platelets (Bld) [#/Vol] 59 10*3/uL Low 150-400 [facility] Comment on above: Order Comment: Speci men Type: BLOOD SPECIMENOrdering Facility: [facility] Address: [address] [place] [address] Result Comment: No c lot detected.Results checked and verified. Performed By: #### 5 7021-8 ####[facility] LABCLIA [id number] [place] [address] [place] RBC (Bld) [#/Vol] 2.60 10*6/uL Low 4.20-6.00 [facility] Comment on above: Order Comment: Speci men Type: BLOOD SPECIMENOrdering Facility: [facility] Address: [address] [place] [address] Performed By: #### 5 7021-8 ####[facility] LABCLIA [id number] [place] [address] [place] WBC (Bld) [#/Vol] 6.03 10*3/uL Normal 3.70-11.00 [facility] Comment on above: Order Comment: Speci men Type: BLOOD SPECIMENOrdering Facility: [facility] Address: [address] [place] [address] Performed By: #### 5 7021-8 ####[facility]CL[facility] [id number] [place] [address] [place] CONSULT PROGon 11-16-2024 CONSULT PROG Normal [facility] CYTOLOGY NON-GYNon 5 AP DISCLAIMER Normal [facility] Comment on above: Order Comment: Speci men Type: FLUID SPECIMENOrdering Facility: [facility] Address: [address] [place] [address] Result Comment: Shellie pugh Developed Test (LDT) Disclaimer:Performance characteristics of immunohistochemical, immunofluorescent, and chromogenic in-situ hybridization tests have been determined by the performing laboratory within [facility]'s [facility] Pathology and Laboratory Medicine Department ([facility], [facility], [facility], [facility], [facility], [facility], or [facility]) in a manner consistent with CLIA requirements. One or more of these tests may not have been cleared or approved by the FDA. [facility] is regulated under CLIA as qualified to perform high-complexity testing. These tests are used for clinical purposes. These should not be regarded as investigational or for research. Positive and negative controls stain appropriately. Performed By: #### C YTONON ####[facility] LABCLIA [id number] [place] [address] [place] CASE REPORT Normal [facility] Comment on above: Order Comment: Speci men Type: FLUID SPECIMENOrdering Facility: [facility] Address: [address] [place] [address] Result Comment: [facility] Cytology Report Case: [id number] Provider: Young Cruz MD Collected: 11/16/2024 08:42 AMOrdering Location: [place] [address] Received: 11/16/2024 06:20 PMPathologist: Stefani Mcneal MDSpecimen: Peritoneal Fluid. Performed By: #### C YTONON ####[facility] LABCLIA [id number] [address] [place] CLINICAL HISTORY Cirrhosis with ascites Normal [facility] Comment on above: Order Comment: Speci men Type: FLUID SPECIMENOrdering Facility: [facility] Address: [address] [place] [address] Performed By: #### C YTONON ####[facility] LABCLIA [id number] [address] FINAL DIAGNOSIS Normal [facility] Comment on above: Order Comment: Speci men Type: FLUID SPECIMENOrdering Facility: [facility] Address: [address] [place] [address] Result Comment: A - Peritoneal Fluid Negative for malignant cells. Chronic inflammation.The following cell blocks were associated with this case:A1 Cell Block, Alcohol Fixed at 1223 EDT Performed By: #### C YTONON ####[facility]CLIA [id number] [address] [place] FINAL PERFORMING LAB Normal [facility] Comment on above: Order Comment: Speci men Type: FLUID SPECIMENOrdering Facility: [facility] Address: [address] [place] [address] Result Comment: Tech nical component, hand wood sander screening performed at: [facility], [address] [place] [address] CLIA: [id number] interpretation performed at: [facility], [address] [place] [address] CLIA# [id number] Director: Titi Voss MD Performed By: #### C YTONON ####[facility] LABCLIA [id number] [place] [address] [place] GROSS DESCRIPTION Normal [facility] Comment on above: Order Comment: Speci men Type: FLUID SPECIMENOrdering Facility: [facility] Address: [address] [place] [address] Result Comment: A. P eritoneal Fluid.1450 cc opaque red fluid . ThinPrep and Cell Block prepared. Performed By: #### C YTONON ####[facility] LABCLIA [id number] [place] [address] [place] ECG COMPLETEon 11-16-2024 ECG COMPLETE Normal [facility] Fibrinogen PPP-mCncon 2024 Fibrinogen Coag (PPP) [Mass/Vol] 127 mg/dL Low 200-[address] [facility] Comment on above: Order Comment: Speci men Type: BLOOD SPECIMENOrdering Facility: [facility] Address: [address] [place] [address] Performed By: #### 3 255-7, 33862-3 ####[facility] LABCLIA [id number] [place] [address] [place] Hepatic function 2000 panelo n 11-16-2024 Albumin [Mass/Vol] 2.8 g/dL Low 3.9-4.9 [facility] Comment on above: Order Comment: Speci men Type: BLOOD SPECIMENOrdering Facility: [facility] Address: [address], [place] [address] Performed By: #### 2 4321-2, 45531-4, 2776- ####[facility] LABCLIA [id number] [address] [address] [place] ALP [Catalytic activity/Vol] 295 U/L High 38-[address] [facility] Comment on above: Order Comment: Speci men Type: BLOOD SPECIMENOrdering Facility: [facility] Address: [address] [place] [address] Performed By: #### 2 4321-2, 15207-6, 2776- ####[facility] LABCLIA [id number] [place] [id number] [place] ALT [Catalytic activity/Vol] 38 U/L Normal 10-[address] [facility] Comment on above: Order Comment: Speci men Type: BLOOD SPECIMENOrdering Facility: [facility] Address: [address] [place] [address] Performed By: #### 2 4321-2, 26584-5, 2776- ####[facility] LABIA [id number] [place] [id number] [place] AST [Catalytic activity/Vol] 88 U/L High 14-[address] [facility] Comment on above: Order Comment: Speci men Type: BLOOD SPECIMENOrdering Facility: [facility] Address: [address] [place], [place] [address] Performed By: #### 2 4321-2, 27795-5, 2776- ####[facility] LABIA [id number] [address] [address] [place] Bilirubin [Mass/Vol] 1.8 mg/dL High 0.2-1.3 [facility] Comment on above: Order Comment: Speci men Type: BLOOD SPECIMENOrdering Facility: [facility] Address: [address] [place], [place] [address] Performed By: #### 2 4321-2, 21268-7, 2776- ####[facility] LABCLIA [id number] [facility] [place] [id number] [address] [place] Bilirubin.conjugated [Mass/Vol] 0.9 mg/dL High <0.[address] [facility] Comment on above: Order Comment: Speci men Type: BLOOD SPECIMENOrdering Facility: [facility] Address: [address] [place] [address] Performed By: #### 2 4321-2, 24577-5, 277- ####[facility] LABCLIA [id number] [facility] [address] [place] [address] [place] Protein [Mass/Vol] 5.5 g/dL Low 6.3-8.0 [facility] Comment on above: Order Comment: Speci men Type: BLOOD SPECIMENOrdering Facility: [facility] Address: [address] [place] [address] Performed By: #### 2 4321-2, 87686-3, 2776-08 ####[facility]CLIA [id number] [address] [place] [address] [place] MANUAL DIFFERENTIAL, BODY FL UIDon 11-16-2024 DIF TTL, BODY FLUID 100 cells counted Normal [facility] Comment on above: Order Comment: Speci men Type: FLUID SPECIMENOrdering Facility: [facility] Address: [address] [place] [address] Performed By: #### C CBF, [id number] ####[facility]CL[facility] [id number] [facility] [address] [place] [address] [place] LYMPH%, BF 47 % High 18-[address] [facility] Comment on above: Order Comment: Speci men Type: FLUID SPECIMENOrdering Facility: [facility] Address: [address] [place] [address] Performed By: #### C CBF, [id number] ####[facility] LABCLIA [id number] [facility] [id number], [place] [address] [place] MACRO%, BF 6 % Low 64-[address] [facility] Comment on above: Order Comment: Speci men Type: FLUID SPECIMENOrdering Facility: [facility] Address: [address] [place] [address] Performed By: #### C CBF, [id number] ####[facility]CL[facility] [id number] [address] [address] [place] MESO %, BF 25 % High 0-[address] [facility] Comment on above: Order Comment: Speci men Type: FLUID SPECIMENOrdering Facility: [facility] Address: [address] [place] [address] Performed By: #### C CBF, [id number] ####[facility]CLIA [id number] [place] [address] [place] MONO% BF 8 % Normal [facility] Comment on above: Order Comment: Speci men Type: FLUID SPECIMENOrdering Facility: [facility] Address: [address] [place] [address] Performed By: #### C CBF, [id number] ####[facility] LABCLIA [id number] [place] [address] [place] NEUT%, BF 14 % High 0-[address] [facility] Comment on above: Order Comment: Speci men Type: FLUID SPECIMENOrdering Facility: [facility] Address: [address] [place] [address] Performed By: #### C CBF, [id number] ####[facility]CLIA [id number] [place] [id number] [place] NURSING PROGon 11-16-2024 NURSING PROG Normal [facility] NURSING PROG Normal [facility] PT panel Coag (PPP)on 2024 INR Coag (PPP) [Relative time] 2.1 {INR} High 0.9-1.[address] [facility] Comment on above: Order Comment: Speci men Type: BLOOD SPECIMENOrdering Facility: [facility] Address: [address] [place] [address] Result Comment: Sarah min K Antagonist (VKA) Therapeutic Range: INR 2 to 3 (Target INR of 2.5)Note: For patients treated with VKA drugs, such as warfarin, the [place] [employer] 2012 Guideline recommends [...] of 3).Tammi GONZALES, et al. Chest 2012, 141:7S-47SHector RA, et al. [facility] 2017, 70: 252-289 Performed By: #### 3 4528-0 ####[facility] [id number] [place] [address] [place] PT Coag (PPP) [Time] 21.5 s High 9.7-13.0 [facility] Comment on above: Order Comment: Ezekiel ramirez Type: BLOOD SPECIMENOrdering Facility: [facility] Address: [address] [place] [address] Performed By: #### 3 4528-0 ####[facility] [id number] [place] [address] [place] INR Coag (PPP) [Relative time] 2.0 {INR} High 0.9-1.[address] [facility] Comment on above: Order Comment: Ezekiel ramirez Type: BLOOD SPECIMENOrdering Facility: [facility] Address: [address] [place] [address] Result Comment: Sarah min K Antagonist (VKA) Therapeutic Range: INR 2 to 3 (Target INR of 2.5)Note: For patients treated with VKA drugs, such as warfarin, the [place] [employer] 2012 Guideline recommends [...] al. Chest 2012, 141:7S-47SNishimnicolle RA, et al. [facility] 2017, 70: 252-289 Performed By: #### 3 255-7, 68512-1 ####[facility] [id number] [place] [address] [place] PT Coag (PPP) [Time] 20.3 s High 9.7-13.0 [facility] Comment on above: Order Comment: Speci men Type: BLOOD SPECIMENOrdering Facility: [facility] Address: [address] [place] [address] Performed By: #### 3 255-7, 60928-8 ####[facility] [id number] [place] [address] [place] Phosphate SerPl-mCncon 11-16 Phosphate [Mass/Vol] 2.3 mg/dL Low 2.7-4.8 [facility] Comment on above: Order Comment: Speci men Type: BLOOD SPECIMENOrdering Facility: [facility] Address: [address] [place] [address] Performed By: #### 2 4321-2, 63832-2, 2777-1 ####[facility] LABIA [id number] [place] [address] [place] Prot Fld-mCncon 11-16-2024 Protein (Body fld) [Mass/Vol] 0.5 g/dL Normal See Comment [facility] Comment on above: Order Comment: Speci men Type: FLUID SPECIMENOrdering Facility: [facility] Address: [address] [place] [address] Result Comment: Sero us fluids: Effusions are [...] document C49A. PAULETTE Diaz: Clinical Laboratory Standards [place]: 2007. Performed By: #### 1 795-4, 2881-1, 1747-5 ####[facility] LABCL[facility] [id number] [place] [address] [place] THERAPY NTon 11-16-2024 THERAPY NT Normal [facility] THERAPY NT Normal [facility] BLOOD TB SCREENon 11-15-2024 M. tuberculosis tuberculin stim IFN-g Ql (Bld) Indeterminate Normal [facility] Comment on above: Order Comment: Speci james Type: BLOOD SPECIMENOrdering Facility: [facility] Address: [address] [place] [address] Performed By: #### I NFTBP ####[facility]IA [id number] [place] [address] [place] MITOGEN MINUS NIL 0.25 IU/mL Low >=0.50 [facility] Comment on above: Order Comment: Ezekiel ramirez Type: BLOOD SPECIMENOrdering Facility: [facility] Address: [address] [place] [address] Performed By: #### I NFTBP ####[facility]CL[facility] [id number] [place] [address] [place] TB GAMMA INTERPRETATION Normal [facility] Comment on above: Order Comment: Speci men Type: BLOOD SPECIMENOrdering Facility: [facility] Address: [address] [place] [address] Performed By: #### I NFTBP ####[facility]CL[facility] [id number] [place] [address] [place] TB NIL 0.01 IU/mL Normal <=8.[address] [facility] Comment on above: Order Comment: Speci men Type: BLOOD SPECIMENOrdering Facility: [facility] Address: [address] [place] [address] Performed By: #### I NFTBP ####[facility]CL[facility] [id number] [place] [address] [place] TB1 AG MINUS NIL 0.00 IU/mL Normal <0.35 [facility] Comment on above: Order Comment: Speci men Type: BLOOD SPECIMENOrdering Facility: [facility] Address: [address] [place] [address] Performed By: #### I NFTBP ####[facility] [id number] [place] [address] [place] TB2 AG MINUS NIL 0.01 IU/mL Normal <0.35 [facility] Comment on above: Order Comment: Speci men Type: BLOOD SPECIMENOrdering Facility: [facility] Address: [address] [place] [address] Performed By: #### I NFTBP ####[facility]CL[facility] [id number] [place] [address] [place] CASE MANAGEMon 11-15-2024 CASE MANAGEM Normal [facility] CASE MANAGEM Normal [facility] CBC W Auto Differential pane l (Bld)on 11-15-2024 Basophils (Bld) [#/Vol] 0.05 10*3/uL Normal <0.[address] [facility] Comment on above: Order Comment: Speci men Type: BLOOD SPECIMENOrdering Facility: [facility] Address: [address] [place] [address] Performed By: #### 5 7021-8 ####[facility]CLIA [id number] [address], [facility]95 [place] Basophils/100 WBC (Bld) 0.8 % Normal [facility] Comment on above: Order Comment: Speci men Type: BLOOD SPECIMENOrdering Facility: [facility] Address: [address] [place] [address] Performed By: #### 5 7021-8 ####[facility]CL[facility] [id number] [address], [place] [address] [place] Differential cell count method Nom (Bld) Auto Normal [facility] Comment on above: Order Comment: Speci men Type: BLOOD SPECIMENOrdering Facility: [facility] Address: [address] [place] [address] Performed By: #### 5 7021-8 ####[facility]CL[facility] [id number] [place] [address] [place] Eosinophils (Bld) [#/Vol] 0.28 10*3/uL Normal <0.[address] [facility] Comment on above: Order Comment: Speci men Type: BLOOD SPECIMENOrdering Facility: [facility] Address: [address] [place] [address] Performed By: #### 5 7021-8 ####[facility]CL[facility] [id number] [place] [id number] [place] Eosinophils/100 WBC (Bld) 4.6 % Normal [facility] Comment on above: Order Comment: Speci men Type: BLOOD SPECIMENOrdering Facility: [facility] Address: [address] [place] [address] Performed By: #### 5 7021-8 ####[facility]CL[facility] [id number] [place] [address] [place] Erythrocyte distribution width (RBC) [Ratio] 16.8 % High 11.5-15.[address] [facility] Comment on above: Order Comment: Speci men Type: BLOOD SPECIMENOrdering Facility: [facility] Address: [address] [place] [address] Performed By: #### 5 7021-8 ####[facility] LABIA [id number] [place] [address] [place] Hematocrit (Bld) [Volume fraction] 22.9 % Low 39.0-51.[address] [facility] Comment on above: Order Comment: Speci men Type: BLOOD SPECIMENOrdering Facility: [facility] Address: [address] [place] [address] Performed By: #### 5 7021-8 ####[facility] LABIA [id number] [place] [address] [place] Hemoglobin (Bld) [Mass/Vol] 7.6 g/dL Low 13.0-17.[address] [facility] Comment on above: Order Comment: Speci men Type: BLOOD SPECIMENOrdering Facility: [facility] Address: [address] [place] [address] Performed By: #### 5 7021-8 ####[facility] LABIA [id number] [place] [address] [place] Immature granulocytes (Bld) [#/Vol] 0.03 10*3/uL Normal <0.[address] [facility] Comment on above: Order Comment: Speci men Type: BLOOD SPECIMENOrdering Facility: [facility] Address: [address] [place] [address] Performed By: #### 5 7021-8 ####[facility] LABIA [id number] [place] [address] [place] Immature granulocytes/100 WBC (Bld) 0.5 % Normal [facility] Comment on above: Order Comment: Speci men Type: BLOOD SPECIMENOrdering Facility: [facility] Address: [address] [place] [address] Performed By: #### 5 7021-8 ####[facility]CL[facility] [id number] [place] [address] [place] Lymphocytes (Bld) [#/Vol] 0.70 10*3/uL Low 1.00-4.[address] [facility] Comment on above: Order Comment: Speci men Type: BLOOD SPECIMENOrdering Facility: [facility] Address: [address] [place] [address] Performed By: #### 5 7021-8 ####[facility] LABIA [id number] [place] [address] [place] Lymphocytes/100 WBC (Bld) 11.5 % Normal [facility] Comment on above: Order Comment: Speci men Type: BLOOD SPECIMENOrdering Facility: [facility] Address: [address] [place] [address] Performed By: #### 5 7021-8 ####[facility] LABIA [id number] [place] [address] [place] MCH (RBC) [Entitic mass] 30.6 pg Normal 26.0-34.[address] [facility] Comment on above: Order Comment: Speci men Type: BLOOD SPECIMENOrdering Facility: [facility] Address: [address] [place] [address] Performed By: #### 5 7021-8 ####[facility] LABIA [id number] [place] [address] [place] MCHC (RBC) [Mass/Vol] 33.2 g/dL Normal 30.5-36.0 [facility] Comment on above: Order Comment: Speci men Type: BLOOD SPECIMENOrdering Facility: [facility] Address: [address] [place] [address] Performed By: #### 5 7021-8 ####[facility]CL[facility] [id number] [address], [place] [address] [place] MCV (RBC) [Entitic vol] 92.3 fL Normal 80.0-100.0 [facility] Comment on above: Order Comment: Speci men Type: BLOOD SPECIMENOrdering Facility: [facility] Address: [address] [place] [address] Performed By: #### 5 7021-8 ####[facility] [id number] [address], [place] [address] [place] Monocytes (Bld) [#/Vol] 0.73 10*3/uL Normal <0.[address] [facility] Comment on above: Order Comment: Speci men Type: BLOOD SPECIMENOrdering Facility: [facility] Address: [address] [place] [address] Performed By: #### 5 7021-8 ####[facility] LABIA [id number] [place] [address] [place] Monocytes/100 WBC (Bld) 12.0 % Normal [facility] Comment on above: Order Comment: Speci men Type: BLOOD SPECIMENOrdering Facility: [facility] Address: [address] [place] [address] Performed By: #### 5 7021-8 ####[facility]CL[facility] [id number] [place] [address] [place] Neutrophils (Bld) [#/Vol] 4.30 10*3/uL Normal 1.45-7.[address] [facility] Comment on above: Order Comment: Speci men Type: BLOOD SPECIMENOrdering Facility: [facility] Address: [address] [place] [address] Performed By: #### 5 7021-8 ####[facility]CL[facility] [id number] [place] [id number] [place] Neutrophils/100 WBC (Bld) 70.6 % Normal [facility] Comment on above: Order Comment: Speci men Type: BLOOD SPECIMENOrdering Facility: [facility] Address: [address] [place] [address] Performed By: #### 5 7021-8 ####[facility]CL[facility] [id number] [facility] [place] [address] [place] Nucleated RBC (Bld) [#/Vol] 10*3/uL Normal <0.[address] [facility] Comment on above: Order Comment: Speci men Type: BLOOD SPECIMENOrdering Facility: [facility] Address: [address] [place] [address] Performed By: #### 5 7021-8 ####[facility]CLIA [id number] [place] [address] [place] Nucleated RBC/100 WBC (Bld) [Ratio] 0.0 /100 WBC Normal [facility] Comment on above: Order Comment: Speci men Type: BLOOD SPECIMENOrdering Facility: [facility] Address: [address] [place] [address] Performed By: #### 5 7021-8 ####[facility]CL[facility] [id number] [place] [address] [place] Platelet mean volume (Bld) [Entitic vol] 12.2 fL Normal 9.0-12.[address] [facility] Comment on above: Order Comment: Speci men Type: BLOOD SPECIMENOrdering Facility: [facility] Address: [address] [place] [address] Performed By: #### 5 7021-8 ####[facility]CLIA [id number] [place] [id number] [place] Platelets (Bld) [#/Vol] 53 10*3/uL Low 150-400 [facility] Comment on above: Order Comment: Speci men Type: BLOOD SPECIMENOrdering Facility: [facility] Address: [address] [place] [address] Performed By: #### 5 7021-8 ####[facility]CL[facility] [id number] [place] [address] [place] RBC (Bld) [#/Vol] 2.48 10*6/uL Low 4.20-6.00 [facility] Comment on above: Order Comment: Speci men Type: BLOOD SPECIMENOrdering Facility: [facility] Address: [address] [place] [address] Performed By: #### 5 7021-8 ####[facility] LABIA [id number] [place] [address] [place] WBC (Bld) [#/Vol] 6.09 10*3/uL Normal 3.70-11.00 [facility] Comment on above: Order Comment: Speci men Type: BLOOD SPECIMENOrdering Facility: [facility] Address: [address] [place] [address] Performed By: #### 5 7021-8 ####[facility] LABIA [id number] [place] [address] [place] CNOVon 11-15-2024 CNOV [address] [facility] CONSULTon 11-15-2024 CONSULT Normal [facility] CONSULT PROGon 11-15-2024 CONSULT PROG Normal [facility] Fibrinogen PPP-mCncon 2024 Fibrinogen Coag (PPP) [Mass/Vol] 123 mg/dL Low 200-[address] [facility] Comment on above: Order Comment: Speci men Type: BLOOD SPECIMENOrdering Facility: [facility] Address: [address] [place] [address] Performed By: #### 3 255-7, 89864-6 ####[facility]CL[facility] [id number] [place] [id number] [place] Hepatic function 2000 panelo n 11-15-2024 Albumin [Mass/Vol] 2.8 g/dL Low 3.9-4.9 [facility] Comment on above: Order Comment: Speci men Type: BLOOD SPECIMENOrdering Facility: [facility] Address: [address] [place] [id number] Performed By: #### 2 4325-3, 77304-0 ####[facility]CLIA [id number] [address] [address] [place] ALP [Catalytic activity/Vol] 277 U/L High 38-[address] [facility] Comment on above: Order Comment: Speci men Type: BLOOD SPECIMENOrdering Facility: [facility] Address: [address] [place] [id number] Performed By: #### 2 4325-3, 72812-1 ####[facility]CLIA [id number] [place] [address] [place] ALT [Catalytic activity/Vol] 36 U/L Normal 10-[address] [facility] Comment on above: Order Comment: Speci men Type: BLOOD SPECIMENOrdering Facility: [facility] Address: [address] [place] [id number] Performed By: #### 2 4325-3, 50632-7 ####[facility]CLIA [id number] [place] [id number] [place] AST [Catalytic activity/Vol] 87 U/L High 14-[address] [facility] Comment on above: Order Comment: Speci men Type: BLOOD SPECIMENOrdering Facility: [facility] Address: [address] [place] [address] Performed By: #### 2 4325-3, 69488-2 ####[facility]CL[facility] [id number] [place] [address] [place] Bilirubin [Mass/Vol] 1.6 mg/dL High 0.2-1.3 [facility] Comment on above: Order Comment: Speci men Type: BLOOD SPECIMENOrdering Facility: [facility] Address: [address] [place], [place] [address] Performed By: #### 2 4325-3, 28249-4 ####[facility] LABIA [id number] [place] [address] [place] Bilirubin.conjugated [Mass/Vol] 0.9 mg/dL High <0.[address] [facility] Comment on above: Order Comment: Ezekiel ramirez Type: BLOOD SPECIMENOrdering Facility: [facility] Address: [address] [place] [address] Performed By: #### 2 4325-3, 77642-3 ####[facility] [id number] [place] [address] [place] Protein [Mass/Vol] 5.4 g/dL Low 6.3-8.0 [facility] Comment on above: Order Comment: Ezekiel ramirez Type: BLOOD SPECIMENOrdering Facility: [facility] Address: [address] [place] [address] Performed By: #### 2 4325-3, 85228-2 ####[facility] [id number] [place] [address] [place] PT panel Coag (PPP)on 2024 INR Coag (PPP) [Relative time] 1.8 {INR} High 0.9-1.[address] [facility] Comment on above: Order Comment: Ezekiel ramirez Type: BLOOD SPECIMENOrdering Facility: [facility] Address: [address] [place] [address] Result Comment: Sarah min K Antagonist (VKA) Therapeutic Range: INR 2 to 3 (Target INR of 2.5)Note: For patients treated with VKA drugs, such as warfarin, the [place] [employer] 2012 Guideline recommends [...] of 3).Tammi GH, et al. Chest 2012, 141:7S-47SNishbethel RA, et al. [facility] 2017, 70: 252-289 Performed By: #### 3 255-7, 99204-6 ####[facility]CL[facility] [id number] [place] [address] [place] PT Coag (PPP) [Time] 18.9 s High 9.7-13.0 [facility] Comment on above: Order Comment: Speci men Type: BLOOD SPECIMENOrdering Facility: [facility] Address: [address] [place] [address] Performed By: #### 3 255-7, 79419-3 ####[facility] LABIA [id number] [place] [address] [place] Renal function 2000 panelon 11-15-2024 Albumin [Mass/Vol] 2.9 g/dL Low 3.9-4.9 [facility] Comment on above: Order Comment: Speci men Type: BLOOD SPECIMENOrdering Facility: [facility] Address: [address] [place] [address] Performed By: #### 2 4325-3, 29390-5 ####[facility] LABIA [id number] [place] [address] [place] Anion gap [Moles/Vol] 15 mmol/L Normal 8-15 [facility] Comment on above: Order Comment: Speci men Type: BLOOD SPECIMENOrdering Facility: [facility] Address: [address] [place] [address] Performed By: #### 2 4325-3, 16426-0 ####[facility]CL[facility] [id number] [place] [id number] [place] Calcium [Mass/Vol] 8.4 mg/dL Low 8.5-10.2 [facility] Comment on above: Order Comment: Speci men Type: BLOOD SPECIMENOrdering Facility: [facility] Address: [address] [place] [address] Performed By: #### 2 4325-3, 21442-2 ####[facility]CL[facility] [id number] [facility] [address] [address] [place] Chloride [Moles/Vol] 99 mmol/L Normal 98-107 [facility] Comment on above: Order Comment: Speci men Type: BLOOD SPECIMENOrdering Facility: [facility] Address: [address] [place] [address] Performed By: #### 2 4325-3, 37866-4 ####[facility] [id number] [facility] [place] [id number] [place] CO2 [Moles/Vol] 14 mmol/L Low 22-[address] [facility] Comment on above: Order Comment: Speci men Type: BLOOD SPECIMENOrdering Facility: [facility] Address: [address] [place] [address] Performed By: #### 2 4325-3, 04198-6 ####[facility]CL[facility] [id number] [facility] [address] [address] [place] Creatinine [Mass/Vol] 0.80 mg/dL Normal 0.73-1.22 [facility] Comment on above: Order Comment: Speci men Type: BLOOD SPECIMENOrdering Facility: [facility] Address: [address] [place] [address] Performed By: #### 2 4325-3, 02084-3 ####[facility]CL[facility] [id number] [facility] [address] [address] [place] Creatinine and Glomerular filtration rate.predicted panel (S/P/Bld) 103 mL/min/1.73m??? Normal >=[address] [facility] Comment on above: Order Comment: Ezekiel ramirez Type: BLOOD SPECIMENOrdering Facility: [facility] Address: [address] [place] [address] Result Comment: Patric mated Glomerular Filtration Rate [...] actual GFR. Performed By: #### 2 4325-3, 30016-0 ####[facility] [id number] [place] [address] [place] Glucose [Mass/Vol] 272 mg/dL High 74-99 [facility] Comment on above: Order Comment: Ezekiel ramirez Type: BLOOD SPECIMENOrdering Facility: [facility] Address: [address] [place] [address] Result Comment: The [place] Diabetes Association (ADA) provides guidance for cutoff [...] Standards of Medical Care in Diabetes 2016, [place] [employer]. Diabetes Care. 2016.39(Suppl 1). Performed By: #### 2 4325-3, 31325-2 ####[facility] [id number] [place] [id number] [place] Phosphate [Mass/Vol] 2.2 mg/dL Low 2.7-4.8 [facility] Comment on above: Order Comment: Ezekiel ramirez Type: BLOOD SPECIMENOrdering Facility: [facility] Address: [address] [place] [id number] Performed By: #### 2 4325-3, 48679-7 ####[facility]CL[facility] [id number] [place] [address] [place] Potassium [Moles/Vol] 3.8 mmol/L Normal 3.7-5.1 [facility] Comment on above: Order Comment: Speci men Type: BLOOD SPECIMENOrdering Facility: [facility] Address: [address] [place] [address] Performed By: #### 2 4325-3, 88213-4 ####[facility]CL[facility] [id number] [place] [address] [place] Sodium [Moles/Vol] 128 mmol/L Low 136-144 [facility] Comment on above: Order Comment: Speci men Type: BLOOD SPECIMENOrdering Facility: [facility] Address: [address] [place] [address] Performed By: #### 2 4325-3, 87645-8 ####[facility]CL[facility] [id number] [place] [address] [place] Urea nitrogen [Mass/Vol] 11 mg/dL Normal 9-[address] [facility] Comment on above: Order Comment: Speci men Type: BLOOD SPECIMENOrdering Facility: [facility] Address: [address] [place] [address] Performed By: #### 2 4325-3, 08578-0 ####[facility]CL[facility] [id number] [place] [id number] [place] SEPSIS LACTATEon 11-15-2024 Lactate [Moles/Vol] 3.2 mmol/L High <=2.0 [facility] Comment on above: Order Comment: Speci men Type: BLOOD SPECIMENOrdering Facility: [facility] Address: [address] [place] [address] Performed By: #### S LACT ####[facility]CL[facility] [id number] [address] [address] [place] SOCIAL WORKon 11-15-2024 SOCIAL WORK Normal [facility] THERAPY NTon 11-15-2024 THERAPY NT Normal [facility] THERAPY NT Normal [facility] TYPE + SCREENon 11-15-2024 ABO O Normal [facility] Comment on above: Order Comment: Speci men Type: BLOOD SPECIMENOrdering Facility: [facility] Address: [address] [place] [address] Performed By: #### T SCR ####[facility] BANKCLIA [id number] [place] [address] [place] Rh Nom (Bld) Positive Normal [facility] Comment on above: Order Comment: Speci men Type: BLOOD SPECIMENOrdering Facility: [facility] Address: [address] [place] [address] Performed By: #### T SCR ####[facility] BANKCLIA [id number] [place] [address] [place] TYPE AND SCREEN EXPIRATION 11/18/2024 23:[address] [facility] Comment on above: Order Comment: Speci men Type: BLOOD SPECIMENOrdering Facility: [facility] Address: [address] [place] [address] Performed By: #### T SCR ####[facility]LO[facility] BANKCLIA [id number] [place] [address] [place] US ASCITES SURVEYon 11-16-19 US ASCITES SURVEY Normal [facility] Basic metabolic 2000 panelon 11-14-2024 Anion gap [Moles/Vol] 11 mmol/L Normal 8-15 [facility] Comment on above: Order Comment: Speci men Type: BLOOD SPECIMENOrdering Facility: [facility] Address: [address] [place] [address] Performed By: #### 2 4321-2, 65956-9, 2777-1, 17685-1 ####[facility]CL[facility] [id number] [address] [address] [place] Calcium [Mass/Vol] 8.9 mg/dL Normal 8.5-10.2 [facility] Comment on above: Order Comment: Speci men Type: BLOOD SPECIMENOrdering Facility: [facility] Address: [address] [place] [address] Performed By: #### 2 4321-2, 78405-0, 27702-01, ####[facility] [id number] [address] [address] [place] Chloride [Moles/Vol] 99 mmol/L Normal 98-107 [facility] Comment on above: Order Comment: Speci men Type: BLOOD SPECIMENOrdering Facility: [facility] Address: [address] [place] [address] Performed By: #### 2 4321-2, 71100-2, 27702-01, ####[facility] [id number] [place] [id number] [place] CO2 [Moles/Vol] 17 mmol/L Low 22-[address] [facility] Comment on above: Order Comment: Speci men Type: BLOOD SPECIMENOrdering Facility: [facility] Address: [address] [place] [address] Performed By: #### 2 4321-2, 58956-3, 2776-08, ####[facility]CL[facility] [id number] [address] [address] [place] Creatinine [Mass/Vol] 0.89 mg/dL Normal 0.73-1.22 [facility] Comment on above: Order Comment: Speci men Type: BLOOD SPECIMENOrdering Facility: [facility] Address: [address] [place], [place] [address] Performed By: #### 2 4321-2, 93577-3, 277-1, 66374-2 ####[facility]CL[facility] [id number] [place] [address] [place] Creatinine and Glomerular filtration rate.predicted panel (S/P/Bld) 99 mL/min/1.73m??? Normal >=[address] [facility] Comment on above: Order Comment: Ezekiel ramirez Type: BLOOD SPECIMENOrdering Facility: [facility] Address: [address] [place] [address] Result Comment: Patric mated Glomerular Filtration Rate [...] actual GFR. Performed By: #### 2 4321-2, 29746-4, 2777-, ####[facility] [id number] [place] [address] [place] Glucose [Mass/Vol] 250 mg/dL High 74-99 [facility] Comment on above: Order Comment: Ezekiel ramirez Type: BLOOD SPECIMENOrdering Facility: [facility] Address: [address] [place] [address] Result Comment: The [place] Diabetes Association (ADA) provides guidance for cutoff [...] Standards of Medical Care in Diabetes 2016, [place] [employer]. Diabetes Care. 2016.39(Suppl 1). Performed By: #### 2 4321-2, 37077-7, 2777-, 49372-5 ####[facility] LABCLIA [id number] [address] [address] [place] Potassium [Moles/Vol] 3.6 mmol/L Low 3.7-5.1 [facility] Comment on above: Order Comment: Speci men Type: BLOOD SPECIMENOrdering Facility: [facility] Address: [address] [place] [address] Performed By: #### 2 4321-2, 22869-3, 277-, ####[facility] LABCLIA [id number] [place] [id number] [place] Sodium [Moles/Vol] 127 mmol/L Low 136-144 [facility] Comment on above: Order Comment: Speci men Type: BLOOD SPECIMENOrdering Facility: [facility] Address: [address] [place] [address] Performed By: #### 2 4321-2, 35930-1, 27702-01, ####[facility] LABIA [id number] [place] [id number] [place] Urea nitrogen [Mass/Vol] 14 mg/dL Normal 9-[address] [facility] Comment on above: Order Comment: Speci men Type: BLOOD SPECIMENOrdering Facility: [facility] Address: [address] [place] [address] Performed By: #### 2 4321-2, 62741-9, 27702-01, ####[facility] LABIA [id number] [place] [id number] [place] CBC W Auto Differential pane l (Bld)on 11-14-2024 Basophils (Bld) [#/Vol] 0.04 10*3/uL Normal <0.[address] [facility] Comment on above: Order Comment: Speci men Type: BLOOD SPECIMENOrdering Facility: [facility] Address: [address] [place] [address] Performed By: #### 5 7021-8 ####[facility] LABCLIA [id number] [facility] [place] [address] [place] Basophils/100 WBC (Bld) 0.7 % Normal [facility] Comment on above: Order Comment: Speci men Type: BLOOD SPECIMENOrdering Facility: [facility] Address: [address] [place] [address] Performed By: #### 5 7021-8 ####[facility] LABCLIA [id number] [place] [address] [place] Differential cell count method Nom (Bld) Auto Normal [facility] Comment on above: Order Comment: Speci men Type: BLOOD SPECIMENOrdering Facility: [facility] Address: [address] [place] [address] Performed By: #### 5 7021-8 ####[facility] LABCLIA [id number] [place] [address] [place] Eosinophils (Bld) [#/Vol] 0.23 10*3/uL Normal <0.[address] [facility] Comment on above: Order Comment: Speci men Type: BLOOD SPECIMENOrdering Facility: [facility] Address: [address] [place] [address] Performed By: #### 5 7021-8 ####[facility]CLIA [id number] [address] [place] Eosinophils/100 WBC (Bld) 4.1 % Normal [facility] Comment on above: Order Comment: Speci men Type: BLOOD SPECIMENOrdering Facility: [facility] Address: [address] [place] [address] Performed By: #### 5 7021-8 ####[facility] LABCLIA [id number] [place] [address] [place] Erythrocyte distribution width (RBC) [Ratio] 16.3 % High 11.5-15.[address] [facility] Comment on above: Order Comment: Speci men Type: BLOOD SPECIMENOrdering Facility: [facility] Address: [address] [place] [address] Performed By: #### 5 7021-8 ####[facility] LABCLIA [id number] [place] [address] [place] Hematocrit (Bld) [Volume fraction] 22.7 % Low 39.0-51.[address] [facility] Comment on above: Order Comment: Speci men Type: BLOOD SPECIMENOrdering Facility: [facility] Address: [address] [place] [address] Performed By: #### 5 7021-8 ####[facility] LABCLIA [id number] [place] [address] [place] Hemoglobin (Bld) [Mass/Vol] 7.9 g/dL Low 13.0-17.[address] [facility] Comment on above: Order Comment: Speci men Type: BLOOD SPECIMENOrdering Facility: [facility] Address: [address] [place] [address] Performed By: #### 5 7021-8 ####[facility] LABCLIA [id number] [place] [address] [place] Immature granulocytes (Bld) [#/Vol] 0.04 10*3/uL Normal <0.[address] [facility] Comment on above: Order Comment: Speci men Type: BLOOD SPECIMENOrdering Facility: [facility] Address: [address] [place] [address] Performed By: #### 5 7021-8 ####[facility] LABCLIA [id number] [place] [address] [place] Immature granulocytes/100 WBC (Bld) 0.7 % Normal [facility] Comment on above: Order Comment: Speci men Type: BLOOD SPECIMENOrdering Facility: [facility] Address: [address] [place] [address] Performed By: #### 5 7021-8 ####[facility] LABCLIA [id number] [place] [address] [place] Lymphocytes (Bld) [#/Vol] 0.72 10*3/uL Low 1.00-4.[address] [facility] Comment on above: Order Comment: Speci men Type: BLOOD SPECIMENOrdering Facility: [facility] Address: [address] [place] [address] Performed By: #### 5 7021-8 ####[facility] LABIA [id number] [place] [address] [place] Lymphocytes/100 WBC (Bld) 12.8 % Normal [facility] Comment on above: Order Comment: Speci men Type: BLOOD SPECIMENOrdering Facility: [facility] Address: [address] [place] [address] Performed By: #### 5 7021-8 ####[facility] [id number] [place] [address] [place] MCH (RBC) [Entitic mass] 31.7 pg Normal 26.0-34.[address] [facility] Comment on above: Order Comment: Speci men Type: BLOOD SPECIMENOrdering Facility: [facility] Address: [address] [place] [address] Performed By: #### 5 7021-8 ####[facility] LABIA [id number] [place] [address] [place] MCHC (RBC) [Mass/Vol] 34.8 g/dL Normal 30.5-36.0 [facility] Comment on above: Order Comment: Speci men Type: BLOOD SPECIMENOrdering Facility: [facility] Address: [address] [place] [address] Performed By: #### 5 7021-8 ####[facility] LABIA [id number] [place] [address] [place] MCV (RBC) [Entitic vol] 91.2 fL Normal 80.0-100.0 [facility] Comment on above: Order Comment: Speci men Type: BLOOD SPECIMENOrdering Facility: [facility] Address: [address] [place] [address] Performed By: #### 5 7021-8 ####[facility] LABCLIA [id number] [place] [address] [place] Monocytes (Bld) [#/Vol] 0.68 10*3/uL Normal <0.[address] [facility] Comment on above: Order Comment: Speci men Type: BLOOD SPECIMENOrdering Facility: [facility] Address: [address] [place] [address] Performed By: #### 5 7021-8 ####[facility] LABCLIA [id number] [place] [address] [place] Monocytes/100 WBC (Bld) 12.1 % Normal [facility] Comment on above: Order Comment: Speci men Type: BLOOD SPECIMENOrdering Facility: [facility] Address: [address] [place] [address] Performed By: #### 5 7021-8 ####[facility] LABCLIA [id number] [place] [address] [place] Neutrophils (Bld) [#/Vol] 3.92 10*3/uL Normal 1.45-7.[address] [facility] Comment on above: Order Comment: Speci men Type: BLOOD SPECIMENOrdering Facility: [facility] Address: [address] [place] [address] Performed By: #### 5 7021-8 ####[facility] LABCLIA [id number] [place] [address] [place] Neutrophils/100 WBC (Bld) 69.6 % Normal [facility] Comment on above: Order Comment: Speci men Type: BLOOD SPECIMENOrdering Facility: [facility] Address: [address] [place] [address] Performed By: #### 5 7021-8 ####[facility] LABCLIA [id number] [address] [place] [address] [place] Nucleated RBC (Bld) [#/Vol] 10*3/uL Normal <0.[address] [facility] Comment on above: Order Comment: Speci men Type: BLOOD SPECIMENOrdering Facility: [facility] Address: [address] [place] [address] Performed By: #### 5 7021-8 ####[facility] LABIA [id number] [address], [facility] [place] Nucleated RBC/100 WBC (Bld) [Ratio] 0.0 /100 WBC Normal [facility] Comment on above: Order Comment: Speci men Type: BLOOD SPECIMENOrdering Facility: [facility] Address: [address] [place] [address] Performed By: #### 5 7021-8 ####[facility] LABIA [id number] [place] [address] [place] Platelet mean volume (Bld) [Entitic vol] 12.1 fL Normal 9.0-12.[address] [facility] Comment on above: Order Comment: Speci men Type: BLOOD SPECIMENOrdering Facility: [facility] Address: [address] [place] [address] Performed By: #### 5 7021-8 ####[facility] LABIA [id number] [place] [address] [place] Platelets (Bld) [#/Vol] 43 10*3/uL Low 150-400 [facility] Comment on above: Order Comment: Speci men Type: BLOOD SPECIMENOrdering Facility: [facility] Address: [address] [place] [address] Result Comment: Resu lts checked and verified.No clot detected. Performed By: #### 5 7021-8 ####[facility] LABIA [id number] [place] [address] [place] RBC (Bld) [#/Vol] 2.49 10*6/uL Low 4.20-6.00 [facility] Comment on above: Order Comment: Speci men Type: BLOOD SPECIMENOrdering Facility: [facility] Address: [address] [place] [address] Performed By: #### 5 7021-8 ####[facility] LABCLIA [id number] [place] [address] [place] WBC (Bld) [#/Vol] 5.63 10*3/uL Normal 3.70-11.00 [facility] Comment on above: Order Comment: Speci men Type: BLOOD SPECIMENOrdering Facility: [facility] Address: [address] [place] [address] Performed By: #### 5 7021-8 ####[facility] LABCLIA [id number] [place] [address] [place] Fibrinogen PPP-mCncon 2024 Fibrinogen Coag (PPP) [Mass/Vol] 119 mg/dL Low 200-[address] [facility] Comment on above: Order Comment: Speci men Type: BLOOD SPECIMENOrdering Facility: [facility] Address: [address] [place] [address] Performed By: #### 3 255-7, 14434-6 ####[facility] LABCLIA [id number] [place] [address] [place] Hepatic function 2000 panelo n 11-14-2024 Albumin [Mass/Vol] 2.8 g/dL Low 3.9-4.9 [facility] Comment on above: Order Comment: Speci men Type: BLOOD SPECIMENOrdering Facility: [facility] Address: [address] [place] [address] Performed By: #### 2 4321-2, 06765-9, 2777-1, 63943-8 ####[facility] LABCLIA [id number] [place] [address] [place] ALP [Catalytic activity/Vol] 248 U/L High 38-[address] [facility] Comment on above: Order Comment: Speci men Type: BLOOD SPECIMENOrdering Facility: [facility] Address: [address] [place] [address] Performed By: #### 2 4321-2, 04203-4, 277-1, 21341-7 ####[facility] LABCLIA [id number] [place] [address] [place] ALT [Catalytic activity/Vol] 29 U/L Normal 10-[address] [facility] Comment on above: Order Comment: Speci men Type: BLOOD SPECIMENOrdering Facility: [facility] Address: [address] [place] [address] Performed By: #### 2 4321-2, 23281-9, 277-1, 72324-6 ####[facility] LABIA [id number] [place] [address] [place] AST [Catalytic activity/Vol] 62 U/L High 14-[address] [facility] Comment on above: Order Comment: Speci men Type: BLOOD SPECIMENOrdering Facility: [facility] Address: [address] [place] [address] Performed By: #### 2 4321-2, 62194-9, 277-1, 75775-4 ####[facility] LABIA [id number] [place] [id number] [place] Bilirubin [Mass/Vol] 1.7 mg/dL High 0.2-1.3 [facility] Comment on above: Order Comment: Speci men Type: BLOOD SPECIMENOrdering Facility: [facility] Address: [address] [place] [address] Performed By: #### 2 4321-2, 36272-7, 277-1, 09754-4 ####[facility] LABCLIA [id number] [place] [id number] [place] Bilirubin.conjugated [Mass/Vol] 1.0 mg/dL High <0.[address] [facility] Comment on above: Order Comment: Speci men Type: BLOOD SPECIMENOrdering Facility: [facility] Address: [address] [place] [address] Performed By: #### 2 4321-2, 01288-0, 2777-1, 35313-6 ####[facility] [id number] [place] [id number] [place] Protein [Mass/Vol] 5.4 g/dL Low 6.3-8.0 [facility] Comment on above: Order Comment: Speci men Type: BLOOD SPECIMENOrdering Facility: [facility] Address: [address] [place] [address] Performed By: #### 2 4321-2, 22695-1, 2777-, ####[facility] [id number] [place] [id number] [place] Magnesium SerPl-mCncon 11-14 Magnesium [Mass/Vol] 1.6 mg/dL Low 1.7-2.3 [facility] Comment on above: Order Comment: Speci men Type: BLOOD SPECIMENOrdering Facility: [facility] Address: [address] [place] [address] Performed By: #### 2 4321-2, 09762-5, 2777-, ####[facility] [id number] [place] [id number] [place] PT panel Coag (PPP)on 2024 INR Coag (PPP) [Relative time] 1.8 {INR} High 0.9-1.[address] [facility] Comment on above: Order Comment: Speci men Type: BLOOD SPECIMENOrdering Facility: [facility] Address: [address] [place] [address] Result Comment: Sarah min K Antagonist (VKA) Therapeutic Range: INR 2 to 3 (Target INR of 2.5)Note: For patients treated with VKA drugs, such as warfarin, the [place] [employer] 2012 Guideline recommends [...] al. Chest 2012, 141:7S-47SNishimura RA, et al. [facility] 2017, 70: 252-289 Performed By: #### 3 255-7, 50948-2 ####[facility] [id number] [place] [address] [place] PT Coag (PPP) [Time] 19.2 s High 9.7-13.0 [facility] Comment on above: Order Comment: Speci men Type: BLOOD SPECIMENOrdering Facility: [facility] Address: [address] [place] [address] Performed By: #### 3 255-7, 37616-3 ####[facility] [id number] [place] [address] [place] Phosphate SerPl-mCncon 11-14 Phosphate [Mass/Vol] 1.9 mg/dL Low 2.7-4.8 [facility] Comment on above: Order Comment: Speci men Type: BLOOD SPECIMENOrdering Facility: [facility] Address: [address] [place] [address] Performed By: #### 2 4321-2, 96145-2, 2777-1, 34874-1 ####[facility] LABIA [id number] [place] [address] [place] URINALYSIS, REFLEX MICROSCOP ICon 11-14-2024 Bacteria LM.HPF (Urine sed) [#/Area] Negative Normal Negative [facility] Comment on above: Order Comment: Speci men Type: URINE SPECIMENOrdering Facility: [facility] Address: [address] [place] [address] Performed By: #### L [id number] ####[facility] LABCL[facility] [id number] [place] [address] [place] Bilirubin Ql (U) 1+ Abnormal Negative [facility] Comment on above: Order Comment: Speci men Type: URINE SPECIMENOrdering Facility: [facility] Address: [address] [place] [address] Result Comment: Sugg est correlation with clinical findings and serum bilirubin if clinically indicated. Performed By: #### L [id number] ####[facility]CL[facility] [id number] [place] [address] [place] Clarity (Unsp spec) Cloudy Abnormal Clear [facility] Comment on above: Order Comment: Speci men Type: URINE SPECIMENOrdering Facility: [facility] Address: [address] [place] [address] Performed By: #### L [id number] ####[facility]CL[facility] [id number] [place] [address] [place] Color (U) Green[place] Abnormal Yellow [facility] Comment on above: Order Comment: Speci men Type: URINE SPECIMENOrdering Facility: [facility] Address: [address] [place] [address] Performed By: #### L [id number] ####[facility]CL[facility] [id number] [place] [address] [place] Epithelial cells LM.HPF (Urine sed) [#/Area] None Seen Normal [facility] Comment on above: Order Comment: Speci men Type: URINE SPECIMENOrdering Facility: [facility] Address: [address] [place] [address] Performed By: #### L [id number] ####[facility]CL[facility] [id number] [place] [address] [place] Glucose Test strip (U) [Mass/Vol] Negative Normal Negative [facility] Comment on above: Order Comment: Speci men Type: URINE SPECIMENOrdering Facility: [facility] Address: [address] [place] [address] Performed By: #### L [id number] ####[facility]CL[facility] [id number] [place] [address] [place] Hemoglobin Ql (U) 3+ Abnormal Negative [facility] Comment on above: Order Comment: Speci men Type: URINE SPECIMENOrdering Facility: [facility] Address: [address] [place] [address] Performed By: #### L [id number] ####[facility]CL[facility] [id number] [place] [address] [place] Hyaline casts (Urine sed) [#/Area] 0 /[LPF] Normal 0 /LPF [facility] Comment on above: Order Comment: Speci men Type: URINE SPECIMENOrdering Facility: [facility] Address: [address] [place] [address] Performed By: #### L [id number] ####[facility]CL[facility] [id number] [place] [address] [place] Ketones Ql (U) Negative Normal Negative [facility] Comment on above: Order Comment: Speci men Type: URINE SPECIMENOrdering Facility: [facility] Address: [address] [place] [address] Performed By: #### L [id number] ####[facility]CL[facility] [id number] [place] [id number] [place] Leukocyte esterase Test strip Ql (U) 3+ Abnormal Negative [facility] Comment on above: Order Comment: Speci men Type: URINE SPECIMENOrdering Facility: [facility] Address: [address] [place] [address] Performed By: #### L [id number] ####[facility] [id number] [place] [address] [place] Nitrite Ql (U) Negative Normal Negative [facility] Comment on above: Order Comment: Speci men Type: URINE SPECIMENOrdering Facility: [facility] Address: [address] [place] [address] Performed By: #### L [id number] ####[facility] [id number] [place] [address] [place] pH (U) 6.0 [pH] Normal <8.[address] [facility] Comment on above: Order Comment: Speci men Type: URINE SPECIMENOrdering Facility: [facility] Address: [address] [place] [address] Performed By: #### L [id number] ####[facility] [id number] [place] [address] [place] Protein (U) [Mass/Vol] 2+ Abnormal Negative [facility] Comment on above: Order Comment: Speci men Type: URINE SPECIMENOrdering Facility: [facility] Address: [address] [place] [address] Performed By: #### L [id number] ####[facility]CL[facility] [id number] [place] [address] [place] RBC LM.HPF (Urine sed) [#/Area] /[HPF] Abnormal 0-2 /HPF [facility] Comment on above: Order Comment: Speci men Type: URINE SPECIMENOrdering Facility: [facility] Address: [address] [place] [address] Performed By: #### L [id number] ####[facility] [id number] [place] [id number] [address] [place] Specific gravity (U) [Rel density] 1.017 Normal 1.005-1.[address] [facility] Comment on above: Order Comment: Speci men Type: URINE SPECIMENOrdering Facility: [facility] Address: [address] [place] [address] Performed By: #### L [id number] ####[facility] [id number] [place] [address] [place] Urobilinogen Ql (U) 0.2 EU/dL Normal 0.2-1.0 EU/dL [facility] Comment on above: Order Comment: Speci men Type: URINE SPECIMENOrdering Facility: [facility] Address: [address] [place] [address] Performed By: #### L [id number] ####[facility] [id number] [place] [address] [place] WBC LM.HPF (Urine sed) [#/Area] /[HPF] Abnormal 0-5 /HPF [facility] Comment on above: Order Comment: Speci men Type: URINE SPECIMENOrdering Facility: [facility] Address: [address] [place] [address] Performed By: #### L [id number] ####[facility] [id number] [place] [address] [place] Yeast.budding LM.HPF (Urine sed) [#/Area] Present Abnormal None Seen [facility] Comment on above: Order Comment: Speci men Type: URINE SPECIMENOrdering Facility: [facility] Address: [address] [place] [address] Performed By: #### L [id number] ####[facility] [id number] [place] [address] [place] 25(OH)D3 Jj 2024 25-hydroxyvitamin D3 [Mass/Vol] 16.2 ng/mL Low 31.0-80.[address] [facility] Comment on above: Order Comment: Speci men Type: BLOOD SPECIMENOrdering Facility: [facility] Address: [address] [place] [address] Performed By: #### 7 852-7, TYSONLG VZVG2, 1988-10 ####[facility] LABCL[facility] [id number] [place] [address] [place] A-Tocopherol Vit E SerPl-mCn con 11-13-2024 Alpha tocopherol [Mass/Vol] 3.3 mg/L Low 6.0-23.[address] [facility] Comment on above: Order Comment: Speci men Type: BLOOD SPECIMENOrdering Facility: [facility] Address: [address] [place] [address] Performed By: #### 2 923-1, 1823-4 ####[facility] [id number] [address] [place] ALPHA-1 ANTITRYPSIN GENOon 0 11-13-2024 HAT REVIEWED BY Michelle [facility] Comment on above: Order Comment: Speci men Type: BLOOD SPECIMENOrdering Facility: [facility] Address: [address] [place] [address] Result Comment: Alph a-1 Antitrypsin GenotypingLaboratory Accession Number: [id number]:No Variant Detected in SERPINA1 (PI*MM)Interpretation:DNA testing indicates [...] the two mostcommon pathogenic variants: S (c.863A>T, p.Yap474Jxr, g.00892607), Z(c.1096G>A, p.Wob869Xkv, g.18871914), and the rarer variants: F(c.739C>T, p.Ked086Ynz, g.59770075), I (c.187C>T, p.Dse71Tax,g.79164608).Limitations:This Laboratory Developed Test (LDT) is designed to [...] was developed and its performance characteristics determinedby [facility]'s [facility] Department. Ithas not been cleared or approved by the FDA. [facility] is regulated under CLIAas certified to perform high-complexity testing. This test is used forclinical purposes. It should not be regarded as investigational or forresearch.Test performed at [facility], [address] [place] [address], [id number]. CLIA Number: [id number]:1) Kait HIRSCH, Samir G, Essence ML, Ilan M, Cross CE, K,Jadyn DK, Princess SL, Suman GOMEZ, [...] Salvador SJ, Nicole. Molecular characterisation of three razvg-6-mzmdgyhslwz deficiencyvariants: proteinase inhibitor (Pi) nullcardiff (Gvp899----Emk);PiMmalton (Qyw94----zmtufbfv) and PiI (Kea05----Fqz). Hum Trisha. 1988Dec;84(1):55-8.4) Flor WHITFIELD and Kait HIRSCH. Clinical practice.Alpha1-antitrypsin deficiency. N Engl J Med. 2008;360(56)0355-72.5) Margot [place], Kwame F, Prakash HIRSCH. The significance of the F variantof fpdbt-4-xtjrtqfpnqb and unique case report of a PiFF homozygote.[facility] Pulm Med. 2013Mar 10;14:132.6) Ivania MARIE, Elena SHETTY, and Jaziel Carlson. Alpha-1 AntitrypsinDeficiency. 2005May 30 [Updated 2017 August 22]. In: Juanito HIRSCH, Barbara, Nemesio TO, et al., editors. GeneReviews [Internet]. [place] ([place]):[facility], [place]; 7141-1602. Available from:http://www.ncbi.nlm.nih.gov/books/EFZ5186/Interpretation performed at remote location ([facility]) by Fifi España MD Performed By: #### H A1AT ####[facility] [id number] [address] [address] [place] ANES POSTPROC EVALon 025 ANES POSTPROC EVAL Normal [facility] ANES PRE-OPon 11-13-2024 ANES PRE-OP Normal [facility] Alpha tocopherol [Mass/Vol]o n 11-13-2024 Beta+gamma tocopherol [Mass/Vol] 0.6 mg/L Normal 0.3-3.[address] [facility] Comment on above: Order Comment: Speci men Type: BLOOD SPECIMENOrdering Facility: [facility] Address: [address] [place] [address] Result Comment: This test was developed, and its performance characteristics determined by the [facility] Department of Pathology and Laboratory Medicine. It has not been cleared or approved by the FDA. The [facility] Department of Pathology and Laboratory Medicine is regulated under CLIA as qualified to perform high-complexity testing. This test is used for clinical purposes. It should not be regarded as investigational or for research. Performed By: #### 2 923-1, 1823-4 ####[facility] [id number] [place] [id number] [place] Basic metabolic 2000 panelon 11-13-2024 Anion gap [Moles/Vol] 9 mmol/L Normal 8-15 [facility] Comment on above: Order Comment: Speci men Type: BLOOD SPECIMENOrdering Facility: [facility] Address: [address] [place] [address] Performed By: #### 2 4321-2, 25931-4, 89262-8, 36063-1 ####[facility] [id number] [place] [address] [place] Calcium [Mass/Vol] 9.1 mg/dL Normal 8.5-10.2 [facility] Comment on above: Order Comment: Speci men Type: BLOOD SPECIMENOrdering Facility: [facility] Address: [address] [place] [address] Performed By: #### 2 4321-2, 27020-8, 66505-6, 53804-9 ####[facility] [id number] [address] [address] [place] Chloride [Moles/Vol] 99 mmol/L Normal 98-107 [facility] Comment on above: Order Comment: Speci men Type: BLOOD SPECIMENOrdering Facility: [facility] Address: [address] [place] [address] Performed By: #### 2 4321-2, 44562-1, 49750-2, 40191-0 ####[facility] [id number] [place] [address] [place] CO2 [Moles/Vol] 16 mmol/L Low 22-[address] [facility] Comment on above: Order Comment: Speci men Type: BLOOD SPECIMENOrdering Facility: [facility] Address: [address] [place] [address] Performed By: #### 2 4321-2, 50846-0, 87581-3, 56992-3 ####[facility] [id number] [place] [address] [place] Creatinine [Mass/Vol] 1.10 mg/dL Normal 0.73-1.22 [facility] Comment on above: Order Comment: Speci men Type: BLOOD SPECIMENOrdering Facility: [facility] Address: [address] [place] [address] Performed By: #### 2 4321-2, 25108-7, 74933-1, 25009-4 ####[facility] [id number] [address] [address] [place] Creatinine and Glomerular filtration rate.predicted panel (S/P/Bld) 78 mL/min/1.73m??? Normal >=[address] [facility] Comment on above: Order Comment: Speci men Type: BLOOD SPECIMENOrdering Facility: [facility] Address: [address] [place] [address] Result Comment: Patric mated Glomerular Filtration Rate [...] actual GFR. Performed By: #### 2 4321-2, 33703-4, 81123-8, 67093-8 ####[facility] [id number] [address] [address] [place] Glucose [Mass/Vol] 278 mg/dL High 74-99 [facility] Comment on above: Order Comment: Ezekiel ramirez Type: BLOOD SPECIMENOrdering Facility: [facility] Address: [address] [place] [address] Result Comment: The [place] Diabetes Association (ADA) provides guidance for cutoff [...] Standards of Medical Care in Diabetes 2016, [place] [employer] Association. Diabetes Care. 2016.39(Suppl 1). Performed By: #### 2 4321-2, 65861-9, 05330-1, 44667-0 ####[facility] [id number] [address] [address] [place] Potassium [Moles/Vol] 4.1 mmol/L Normal 3.7-5.1 [facility] Comment on above: Order Comment: Ezekiel ramirez Type: BLOOD SPECIMENOrdering Facility: [facility] Address: [address] [place] [id number] Performed By: #### 2 4321-2, 20430-4, 44790-8, 25101-4 ####[facility] [id number] [place] [address] [place] Sodium [Moles/Vol] 124 mmol/L Low 136-144 [facility] Comment on above: Order Comment: Speci men Type: BLOOD SPECIMENOrdering Facility: [facility] Address: [address] [place] [address] Performed By: #### 2 4321-2, 27218-0, 63818-2, 05746-0 ####[facility] [id number] [place] [address] [place] Urea nitrogen [Mass/Vol] 20 mg/dL Normal 9-[address] [facility] Comment on above: Order Comment: Speci men Type: BLOOD SPECIMENOrdering Facility: [facility] Address: [address] [place] [address] Performed By: #### 2 4321-2, 23372-8, 54777-4, 56767-0 ####[facility] [id number] [place] [address] [place] CBC W Auto Differential pane l (Bld)on 11-13-2024 Basophils (Bld) [#/Vol] 10*3/uL Normal <0.11 [facility] Comment on above: Order Comment: Speci men Type: BLOOD SPECIMENOrdering Facility: [facility] Address: [address] [place] [address] Performed By: #### 5 7021-8 ####[facility] [id number] [place] [address] [place] Basophils/100 WBC (Bld) 0.4 % Normal [facility] Comment on above: Order Comment: Speci men Type: BLOOD SPECIMENOrdering Facility: [facility] Address: [address] [place] [address] Performed By: #### 5 7021-8 ####[facility] [id number] [place] [address] [place] Differential cell count method Nom (Bld) Auto Normal [facility] Comment on above: Order Comment: Speci men Type: BLOOD SPECIMENOrdering Facility: [facility] Address: [address] [place] [address] Performed By: #### 5 7021-8 ####[facility] [id number] [address], [place] [address] [place] Eosinophils (Bld) [#/Vol] 0.18 10*3/uL Normal <0.[address] [facility] Comment on above: Order Comment: Speci men Type: BLOOD SPECIMENOrdering Facility: [facility] Address: [address] [place] [address] Performed By: #### 5 7021-8 ####[facility] [id number] [place] [address] [place] Eosinophils/100 WBC (Bld) 3.3 % Normal [facility] Comment on above: Order Comment: Speci men Type: BLOOD SPECIMENOrdering Facility: [facility] Address: [address] [place] [address] Performed By: #### 5 7021-8 ####[facility] [id number] [place] [address] [place] Erythrocyte distribution width (RBC) [Ratio] 17.0 % High 11.5-15.[address] [facility] Comment on above: Order Comment: Speci men Type: BLOOD SPECIMENOrdering Facility: [facility] Address: [address] [place] [address] Performed By: #### 5 7021-8 ####[facility] [id number] [place] [address] [place] Hematocrit (Bld) [Volume fraction] 21.6 % Low 39.0-51.[address] [facility] Comment on above: Order Comment: Speci men Type: BLOOD SPECIMENOrdering Facility: [facility] Address: [address] [place] [address] Performed By: #### 5 7021-8 ####[facility] [id number] [place] [address] [place] Hemoglobin (Bld) [Mass/Vol] 7.4 g/dL Low 13.0-17.[address] [facility] Comment on above: Order Comment: Speci men Type: BLOOD SPECIMENOrdering Facility: [facility] Address: [address] [place] [address] Performed By: #### 5 7021-8 ####[facility] [id number] [place] [address] [place] Immature granulocytes (Bld) [#/Vol] 0.04 10*3/uL Normal <0.[address] [facility] Comment on above: Order Comment: Speci men Type: BLOOD SPECIMENOrdering Facility: [facility] Address: [address] [place] [address] Performed By: #### 5 7021-8 ####[facility] [id number] [place] [address] [place] Immature granulocytes/100 WBC (Bld) 0.7 % Normal [facility] Comment on above: Order Comment: Speci men Type: BLOOD SPECIMENOrdering Facility: [facility] Address: [address] [place] [address] Performed By: #### 5 7021-8 ####[facility] [id number] [place] [address] [place] Lymphocytes (Bld) [#/Vol] 0.64 10*3/uL Low 1.00-4.[address] [facility] Comment on above: Order Comment: Speci men Type: BLOOD SPECIMENOrdering Facility: [facility] Address: [address] [place] [address] Performed By: #### 5 7021-8 ####[facility] [id number] [place] [address] [place] Lymphocytes/100 WBC (Bld) 11.6 % Normal [facility] Comment on above: Order Comment: Speci men Type: BLOOD SPECIMENOrdering Facility: [facility] Address: [address] [place] [address] Performed By: #### 5 7021-8 ####[facility] [id number] [place] [address] [place] MCH (RBC) [Entitic mass] 31.8 pg Normal 26.0-34.[address] [facility] Comment on above: Order Comment: Speci men Type: BLOOD SPECIMENOrdering Facility: [facility] Address: [address] [place] [address] Performed By: #### 5 7021-8 ####[facility] [id number] [place] [address] [place] MCHC (RBC) [Mass/Vol] 34.3 g/dL Normal 30.5-36.0 [facility] Comment on above: Order Comment: Speci men Type: BLOOD SPECIMENOrdering Facility: [facility] Address: [address] [place] [address] Performed By: #### 5 7021-8 ####[facility] [id number] [place] [address] [place] MCV (RBC) [Entitic vol] 92.7 fL Normal 80.0-100.0 [facility] Comment on above: Order Comment: Speci men Type: BLOOD SPECIMENOrdering Facility: [facility] Address: [address] [place] [address] Performed By: #### 5 7021-8 ####[facility] [id number] [place] [address] [place] Monocytes (Bld) [#/Vol] 0.68 10*3/uL Normal <0.[address] [facility] Comment on above: Order Comment: Speci men Type: BLOOD SPECIMENOrdering Facility: [facility] Address: [address] [place] [address] Performed By: #### 5 7021-8 ####[facility] [id number] [address] [address] [place] Monocytes/100 WBC (Bld) 12.4 % Normal [facility] Comment on above: Order Comment: Speci men Type: BLOOD SPECIMENOrdering Facility: [facility] Address: [address] [place] [address] Performed By: #### 5 7021-8 ####[facility] [id number] [place] [address] [place] Neutrophils (Bld) [#/Vol] 3.94 10*3/uL Normal 1.45-7.[address] [facility] Comment on above: Order Comment: Speci men Type: BLOOD SPECIMENOrdering Facility: [facility] Address: [address] [place] [address] Performed By: #### 5 7021-8 ####[facility] [id number] [place] [address] [place] Neutrophils/100 WBC (Bld) 71.6 % Normal [facility] Comment on above: Order Comment: Speci men Type: BLOOD SPECIMENOrdering Facility: [facility] Address: [address] [place] [address] Performed By: #### 5 7021-8 ####[facility] [id number] [place] [address] [place] Nucleated RBC (Bld) [#/Vol] 10*3/uL Normal <0.[address] [facility] Comment on above: Order Comment: Speci men Type: BLOOD SPECIMENOrdering Facility: [facility] Address: [address] [place] [address] Performed By: #### 5 7021-8 ####[facility] [id number] [address] [place] [address] [place] Nucleated RBC/100 WBC (Bld) [Ratio] 0.0 /100 WBC Normal [facility] Comment on above: Order Comment: Speci men Type: BLOOD SPECIMENOrdering Facility: [facility] Address: [address] [place] [address] Performed By: #### 5 7021-8 ####[facility] [id number] [place] [address] [place] Platelet mean volume (Bld) [Entitic vol] 11.7 fL Normal 9.0-12.[address] [facility] Comment on above: Order Comment: Speci men Type: BLOOD SPECIMENOrdering Facility: [facility] Address: [address] [place] [address] Performed By: #### 5 7021-8 ####[facility] [id number] [place] [address] [place] Platelets (Bld) [#/Vol] 38 10*3/uL Low 150-400 [facility] Comment on above: Order Comment: Speci men Type: BLOOD SPECIMENOrdering Facility: [facility] Address: [address] [place] [address] Result Comment: Resu lts checked and verified.No clot detected. Performed By: #### 5 7021-8 ####[facility] [id number] [place] [address] [place] RBC (Bld) [#/Vol] 2.33 10*6/uL Low 4.20-6.00 [facility] Comment on above: Order Comment: Speci men Type: BLOOD SPECIMENOrdering Facility: [facility] Address: [address] [place] [address] Performed By: #### 5 7021-8 ####[facility] [id number] [place] [address] [place] WBC (Bld) [#/Vol] 5.50 10*3/uL Normal 3.70-11.00 [facility] Comment on above: Order Comment: Speci men Type: BLOOD SPECIMENOrdering Facility: [facility] Address: [address] [place] [address] Performed By: #### 5 7021-8 ####[facility] [id number] [place] [address] [place] CMV IgG Qnon 11-13-2024 CMV IGG QUAL Negative Normal Negative [facility] Comment on above: Order Comment: Speci men Type: BLOOD SPECIMENOrdering Facility: [facility] Address: [address] [place] [address] Result Comment: No s erological evidence of past exposure to Cytomegalovirus. Cannot exclude recent infection if the specimen collected within 4-6 weeks after infection. Performed By: #### 7 852-7, MEASLG, VZVG2, 1987-10 ####[facility] [id number] [place] [address] [place] CMV IgG SerPl-aCncon 025 CMV IgG Qn 0.37 U/mL Normal [facility] Comment on above: Order Comment: Speci men Type: BLOOD SPECIMENOrdering Facility: [facility] Address: [address] [place] [address] Result Comment: The magnitude of the measured result is not indicative of the amount of antibody present.U/mL values are interpreted as follows:Negative <0.6Equivocal 0.6 to <0.70Positive >=0.70 Performed By: #### 7 852-7, MEASLG, VZVG2, 1988-10 ####[facility] [id number] [place] [address] [place] CONSULT PROGon 11-13-2024 CONSULT PROG Normal [facility] CYTOLOGY NON-GYNon AP DISCLAIMER Normal [facility] Comment on above: Order Comment: Speci men Type: FLUID SPECIMENOrdering Facility: [facility] Address: [address] [place] [address] Result Comment: Shellie Fox Test (LDT) Disclaimer:Performance characteristics of immunohistochemical, immunofluorescent, and chromogenic in-situ hybridization tests have been determined by the performing laboratory within [facility] Pathology and Laboratory Medicine Department ([facility], [facility], [facility], [facility], [facility], [facility], or [facility]) in a manner consistent with CLIA requirements. One or more of these tests may not have been cleared or approved by the FDA. [facility] is regulated under CLIA as qualified to perform high-complexity testing. These tests are used for clinical purposes. These should not be regarded as investigational or for research. Positive and negative controls stain appropriately. Performed By: #### C YTONON ####[facility] [id number] [place] [address] [place] CASE REPORT Normal [facility] Comment on above: Order Comment: Speci men Type: FLUID SPECIMENOrdering Facility: [facility] Address: [address] [place] [address] Result Comment: [facility] Cytology Report Case: [id number] Provider: Deb Fox MD Collected: 11/13/2024 02:46 PMOrdering Location: [place] [address] Received: 11/15/2024 05:01 AMPathologist: Foster Newton MDSpecimen: Urine, Midstream Performed By: #### C YTONON ####[facility] [id number] [place] [address] [place] CLINICAL HISTORY Staghorn calculi, s/ p L sided stenting with hematuria Normal [facility] Comment on above: Order Comment: Speci men Type: FLUID SPECIMENOrdering Facility: [facility] Address: [address] [place] [address] Performed By: #### C YTONON ####[facility] [id number] [place] [id number] [place] DIAGNOSIS COMMENT Normal [facility] Comment on above: Order Comment: Speci men Type: FLUID SPECIMENOrdering Facility: [facility] Address: [address] [place] [address] Result Comment: A. F ungal yeast forms are seen, morphologically consistent with Mary species. Clinical correlation is suggested. Performed By: #### C YTONON ####[facility] [id number] [address] [place] FINAL DIAGNOSIS Normal [facility] Comment on above: Order Comment: Speci men Type: FLUID SPECIMENOrdering Facility: [facility] Address: [address] [place] [address] Result Comment: A - Urine, Voided: Negative for high-grade urothelial carcinoma. Abundant acute inflammation (see comment). at 1141 EDT Performed By: #### C YTONON ####[facility] [id number] [address] [place] FINAL PERFORMING LAB Normal [facility] Comment on above: Order Comment: Speci men Type: FLUID SPECIMENOrdering Facility: [facility] Address: [address] [place] [address] Result Comment: Tech nical component, hand wood sander screening performed at: [facility], [address] [place] [address] CLIA: [id number] interpretation performed at: [facility], [address] [place] [address] CLIA# [id number] Director: Titi Voss MD Performed By: #### C YTONON ####[facility] [id number] [place] [id number] [place] GROSS DESCRIPTION Normal [facility] Comment on above: Order Comment: Speci men Type: FLUID SPECIMENOrdering Facility: [facility] Address: [address] [place] [address] Result Comment: A. U rine, Ejbllppoj21 cc cloudy lexis fluid . ThinPrep prepared. Performed By: #### C YTONON ####[facility] [id number] [place] [address] [place] EBV capsid IgG Qn (S)on 11-02 EBV VCA IGG, QUAL Positive Abnormal Negative [facility] Comment on above: Order Comment: Speci [facility] Type: BLOOD SPECIMENOrdering Facility: [facility] Address: [address] [place] [address] Result Comment: The result suggests recent or past EBV infection. The final interpretation should be done in the context of other EBV serology panel results. Performed By: #### 8 039-0, 7885-7 ####[facility] [id number] [place] [address] [place] Fibrinogen PPP-mCncon 2024 Fibrinogen Coag (PPP) [Mass/Vol] 94 mg/dL Low 200-[address] [facility] Comment on above: Order Comment: Speci [facility] Type: BLOOD SPECIMENOrdering Facility: [facility] Address: [address] [place] [address] Result Comment: Samp le checked for clot. Performed By: #### 3 4528-0, 3255-7 ####[facility] LABIA [id number] [place] [address] [place] HBV core Ab Ser Qlon 025 HBV core Ab Ql (S) Negative Normal Negative [facility] Comment on above: Order Comment: [facility] Type: BLOOD SPECIMENOrdering Facility: [facility] Address: [address] [place] [address] Result Comment: No e vidence of current or past infection with Hepatitis B virus. Should recent infection be suspected, repeat testing may be considered 3-4 weeks after this draw. Performed By: #### 3 1201-7, 05596-8, AHAVG, 5194-3, 93727-1 ####[facility] LABCLIA [id number] [place] [address] [place] HBV surface Ab Ql (S)on 11-02 HBV surface Ab Qn (S) <8.00 Normal [facility] Comment on above: Order Comment: Speci men Type: BLOOD SPECIMENOrdering Facility: [facility] Address: [address] [place] [address] Result Comment: <8 m IU/mL: No serological evidence of immunity to Hepatitis B Virus.>/= 8 to <12 mIU/mL: No serological evidence of immunity to Hepatitis B Virus.>/= 12 mIU/mL: Consistent with serological evidence of immunity to Hepatitis B Virus. Performed By: #### 3 1201-7, 13617-2, [facility], 5194-3, 61444-0 ####[facility] LABIA [id number] [address] [place] HBV surface Ab Ser Qlon 11-02 HBV surface Ab Ql (S) Negative Normal [facility] Comment on above: Order Comment: Speci men Type: BLOOD SPECIMENOrdering Facility: [facility] Address: [address] [place] [address] Result Comment: No s erological evidence of immunity to Hepatitis B Virus. Performed By: #### 3 1201-7, 49146-2, [facility], 5194-3, 58538-6 ####[facility] LABIA [id number] [place] [address] [place] HBV surface Ag Ser Qlon 11-02 HBV surface Ag Ql (S) Negative Normal Negative [facility] Comment on above: Order Comment: Speci men Type: BLOOD SPECIMENOrdering Facility: [facility] Address: [address] [place] [address] Performed By: #### 3 1201-7, 22780-2, AHAVG, 5195-3, 08061-3 ####[facility] LABCLIA [id number] [place] [address] [place] HCV Ab Ser Qlon 11-13-2024 HCV Ab Ql (S) Negative Normal Negative [facility] Comment on above: Order Comment: Speci men Type: BLOOD SPECIMENOrdering Facility: [facility] Address: [address] [place] [address] Result Comment: The result suggests no evidence of infection with Hepatitis C virus. Should recent infection be suspected, repeat testing may be considered 4-6 weeks after this draw. Performed By: #### 1 6128-1 ####[facility] LABIA [id number] [place] [address] [place] HEPATITIS A ANTIBODY, IGGon 11-13-2024 HAV IgG Ql (S) Negative Normal [facility] Comment on above: Order Comment: Speci men Type: BLOOD SPECIMENOrdering Facility: [facility] Address: [address] [place] [address] Result Comment: No s erological evidence of past exposure to hepatitis A virus or hepatitis A vaccination. Should recent infection be suspected, repeat testing is suggested 3-4 weeks after this draw. Performed By: #### 3 1201-7, 13855-9, AHAVG, 5195-3, 28710-8 ####[facility] LABCLIA [id number] [place] [address] [place] Performed By: #### 7 3752-8, AHAVG, STRSER, MUMPSG ####[facility] LABCLIA [id number] [place] [address] [place] HIV 1+2 Ab IA Qlon 5 HIV 1 and 2 Ab IA.rapid Nom (S/P/Bld) Normal [facility] Comment on above: Order Comment: Speci men Type: BLOOD SPECIMENOrdering Facility: [facility] Address: [address] [place] [address] Result Comment: Test not indicated. Performed By: #### 3 1201-7, 90946-9, AHAVG, 5-3, 47362-9 ####[facility] LABCLIA [id number] [place] [address] [place] HIV 1+2 Ab+HIV1 p24 Ag IA Ql Non-Reactive Normal Nonreactive [facility] Comment on above: Order Comment: Speci men Type: BLOOD SPECIMENOrdering Facility: [facility] Address: [address] [place] [address] Performed By: #### 3 1201-7, 50752-8, AHAVG, 5-3, 89072-6 ####[facility] [id number] [place] [address] [place] HIV immunoassay testing algorithm interpretation (S/P/Bld) [Interp] Normal [facility] Comment on above: Order Comment: Speci men Type: BLOOD SPECIMENOrdering Facility: [facility] Address: [address] [place] [address] Result Comment: No e vidence of HIV-1 or HIV-2 infection. Should recent infection be suspected, repeat testing may be considered 2-3 weeks after this draw.[place] Rev. Code 3701.243(E): This information has been [...] or diagnoses. Performed By: #### 3 1201-7, 88282-6, AHAVG, 5-3, 69771-5 ####[facility] LABIA [id number] [place] [address] [place] Hepatic function 2000 panelo n 11-13-2024 Albumin [Mass/Vol] 2.8 g/dL Low 3.9-4.9 [facility] Comment on above: Order Comment: Speci men Type: BLOOD SPECIMENOrdering Facility: [facility] Address: [address] [place], [place] [address] Performed By: #### 2 4321-2, 47783-0, 60136-1, 98422-2 ####[facility] LABCLIA [id number] [facility] [address] [place] [address] [place] ALP [Catalytic activity/Vol] 225 U/L High 38-[address] [facility] Comment on above: Order Comment: Speci men Type: BLOOD SPECIMENOrdering Facility: [facility] Address: [address] [place], [place] [address] Performed By: #### 2 4321-2, 43757-7, 37224-2, 62467-5 ####[facility] LABCLIA [id number] [place] [id number] [place] ALT [Catalytic activity/Vol] 22 U/L Normal 10-[address] [facility] Comment on above: Order Comment: Speci men Type: BLOOD SPECIMENOrdering Facility: [facility] Address: [address] [place] [address] Performed By: #### 2 4321-2, 16934-2, 61703-5, 81084-9 ####[facility] LABCLIA [id number] [address] [address] [place] AST [Catalytic activity/Vol] 36 U/L Normal 14-[address] [facility] Comment on above: Order Comment: Speci men Type: BLOOD SPECIMENOrdering Facility: [facility] Address: [address] [place], [place] [address] Performed By: #### 2 4321-2, 36206-6, 07376-2, 75834-5 ####[facility] LABCLIA [id number] [facility] [address] [place] [address] [place] Bilirubin [Mass/Vol] 1.8 mg/dL High 0.2-1.3 [facility] Comment on above: Order Comment: Speci men Type: BLOOD SPECIMENOrdering Facility: [facility] Address: [address] [place] [address] Performed By: #### 2 4321-2, 44584-5, 01991-7, 24033-5 ####[facility] LABCLIA [id number] [place] [address] [place] Bilirubin.conjugated [Mass/Vol] 0.9 mg/dL High <0.[address] [facility] Comment on above: Order Comment: Speci men Type: BLOOD SPECIMENOrdering Facility: [facility] Address: [address] [place] [address] Performed By: #### 2 4321-2, 72283-0, 63025-3, 00582-6 ####[facility] LABCLIA [id number] [place] [address] [place] Protein [Mass/Vol] 5.2 g/dL Low 6.3-8.0 [facility] Comment on above: Order Comment: Speci men Type: BLOOD SPECIMENOrdering Facility: [facility] Address: [address] [place] [address] Performed By: #### 2 4321-2, 99918-9, 69732-1, 72807-6 ####[facility] LABIA [id number] [place] [address] [place] LIVER REC INIT W/Uon 025 ALLOGEN RESULTS TO FOLLOW See Allogen report to follow Normal [facility] Comment on above: Order Comment: Speci men Type: BLOOD SPECIMENOrdering Facility: [facility] Address: [address] [place] [address] Performed By: #### L RIPW ####[facility]CL[facility] [id number] [address] [address] [place] LPa SerPl-mCncon 11-13-2024 Lipoprotein a [Mass/Vol] mg/dL Normal <[address] [facility] Comment on above: Order Comment: Speci men Type: BLOOD SPECIMENOrdering Facility: [facility] Address: [address] [place] [address] Performed By: #### 1 0835-7 ####[facility] LABCLIA [id number] [address] [place] [address] [place] Lipid 1996 panelon 5 Cholesterol [Mass/Vol] 52 mg/dL Normal <200 [facility] Comment on above: Order Comment: Speci men Type: BLOOD SPECIMENOrdering Facility: [facility] Address: [address] [place] [address] Result Comment: <200 mg/dL, Desirable 200-239 mg/dL, Borderline high>239 mg/dL, High Performed By: #### 2 4321-2, 81913-1, 26185-9, 96479-9 ####[facility] LABCLIA [id number] [address], [facility] [place] Cholesterol in HDL [Mass/Vol] 17 mg/dL Low >[address] [facility] Comment on above: Order Comment: Speci men Type: BLOOD SPECIMENOrdering Facility: [facility] Address: [address] [place] [address] Result Comment: 40-5 9 mg/dL, Acceptable>59 mg/dL, High: Negative risk factor for coronary heart disease<40 mg/dL, Low: Positive risk factor for coronary heart disease Performed By: #### 2 4321-2, 80854-9, 77517-1, 57934-4 ####[facility] LABCLIA [id number] [address] [place] [address] [facility] Cholesterol in LDL [Mass/Vol] 26 mg/dL Normal <[address] [facility] Comment on above: Order Comment: Speci men Type: BLOOD SPECIMENOrdering Facility: [facility] Address: [address] [place] [address] Result Comment: <100 mg/dL, Optimal 100-129 mg/dL, Near optimal/above optimal 130-159 mg/dL, Borderline high 160-189 mg/dL, High>189 mg/dL, Very highSecondary prevention optimal LDL Cholesterol levels are recommended to be < 70 mg/dL Performed By: #### 2 4321-2, 41601-6, 03477-0, 34138-6 ####[facility] LABCLIA [id number] [address] [place] [address] [place] Cholesterol in LDL/Cholesterol in HDL [Mass ratio] 1.53 {ratio} Normal <2.[address] [facility] Comment on above: Order Comment: Speci men Type: BLOOD SPECIMENOrdering Facility: [facility] Address: [address] [place] [address] Result Comment: Refe yancy:1. National Cholesterol Education Program ATP III Guideline At-A-Glance Quick Desk Reference: National Heart, Lung, and Blood [place]. National Institutes of Health. 2001: NIH Publication No. 01-3305.2. An International Atherosclerosis Society position paper: global recommendations for the management of dyslipidemia: executive summary, Atherosclerosis. 2014: 232(2):410-413. Performed By: #### 2 4321-2, 39534-6, 92837-3, 04800-6 ####[facility] LABCLIA [id number] [address] [address] [place] Cholesterol in VLDL [Mass/Vol] 9 mg/dL Normal <[address] [facility] Comment on above: Order Comment: Speci men Type: BLOOD SPECIMENOrdering Facility: [facility] Address: [address] [place] [address] Performed By: #### 2 4321-2, 34524-3, 80120-5, 44511-3 ####[facility] LABIA [id number] [facility] [address] [place] [address] [place] Cholesterol non HDL [Mass/Vol] 35 mg/dL Normal <[address] [facility] Comment on above: Order Comment: Speci men Type: BLOOD SPECIMENOrdering Facility: [facility] Address: [address] [place] [address] Result Comment: <130 mg/dL, Optimal 130-159 mg/dL, Near optimal/above optimal 160-189 mg/dL, Borderline high 190-219 mg/dL, High>219 mg/dL, Very highSecondary prevention optimal non HDL Cholesterol levels are recommended to be <100 mg/dL Performed By: #### 2 4321-2, 24296-6, 27794-6, 89538-1 ####[facility] LABCLIA [id number] [facility] [place] [address] [place] [address] [place] Cholesterol.total/Donna sterol in HDL [Mass ratio] 3.06 {ratio} Normal <5.[address] [facility] Comment on above: Order Comment: Speci men Type: BLOOD SPECIMENOrdering Facility: [facility] Address: [address] [place] [address] Performed By: #### 2 4321-2, 13693-4, 00573-1, 34004-4 ####[facility] LABCLIA [id number] [facility] [address], [facility] [place] [facility] FASTING TIME 4 hrs Normal [facility] Comment on above: Order Comment: Speci men Type: BLOOD SPECIMENOrdering Facility: [facility] Address: [address] [place] [address] Performed By: #### 2 4321-2, 06389-0, 39309-6, 18757-3 ####[facility] LABCLIA [id number] [facility] [address] [place] Triglyceride [Mass/Vol] 45 mg/dL Normal <150 [facility] Comment on above: Order Comment: Speci men Type: BLOOD SPECIMENOrdering Facility: [facility] Address: [address] [place] [address] Result Comment: <150 mg/dL, Normal 150-199 mg/dL, Borderline high 200-499 mg/dL, High>499 mg/dL, Very high Performed By: #### 2 4321-2, 24781-8, 63584-9, 78898-0 ####[facility] LABCLIA [id number] [address] [place] MUMPS IGG ABon 11-13-2024 MuV IgG Ql (S) Negative Abnormal Positive [facility] Comment on above: Order Comment: Speci men Type: BLOOD SPECIMENOrdering Facility: [facility] Address: [address] [place] [address] Result Comment: The result suggests no history of Mumps vaccination or exposure to Mumps virus, however, some individuals with past history of Mumps vaccination may test negative using this test. Please correlate with past history of vaccination if applicable. Performed By: #### 7 3752-8, AHAVG, STRSER, MUMPSG ####[facility] LABCLIA [id number] [address] [place] NT-proBNP [facility] Natriuretic peptide.B prohormone N-Terminal [Mass/Vol] 1047 pg/mL High <[address] [facility] Comment on above: Order Comment: Speci men Type: BLOOD SPECIMENOrdering Facility: [facility] Address: [address] [place] [address] Performed By: #### 2 4321-2, 53340-7, 76363-6, 80862-6 ####[facility] LABCLIA [id number] [place] [address] [place] NURSING PROGon 11-13-2024 NURSING PROG Normal [facility] NURSING PROG Normal [facility] PHOSPHATIDYLETHANOL (PETH)on 11-13-2024 EER PETH See Note Normal [facility] Comment on above: Order Comment: Speci men Type: BLOOD SPECIMENOrdering Facility: [facility] Address: [address] [place] [address] Result Comment: Auth orized individuals can access the my[employer]chy Enhanced Reportwith an [employer] Connect account using the following link.Your local lab can assist you in obtaining the patientreport if you don't have a Connect account.[email or web address] Performed By: #### P ETH ####[facility]IESCLIA [id number] [place] [address] PETH 16:0/18.2 (PLPETH) <10 [facility] Comment on above: Order Comment: Speci men Type: BLOOD SPECIMENOrdering Facility: [facility] Address: [address] [place] [address] Result Comment: Refe rence ranges are not well established. Performed By: #### P ETH ####[facility]IESCLIA [id number] [place] [address] PETH 16:0/18:1 (POPETH) <10 [facility] Comment on above: Order Comment: Speci men Type: BLOOD SPECIMENOrdering Facility: [facility] Address: [address] [place] [address] Result Comment: PEth 16:0/18:1 (POPEth)Less than 10 ng/mL............Not detectedLess than 20 ng/mL............Abstinence or light eqmapjnfgsqylrrlrr18 - 200 ng/mL................Moderate alcohol consumptionGreater than 200 ng/mL........Heavy alcohol consumption or chronicalcohol use(Reference: Alonso Landaverde and Mathew Ha 2018 J. Forensic Sci) Performed By: #### P ETH ####[facility]IESCLIA [id number] [place] [address] PETH INTERPRETATION See Comment [facility] Comment on above: Order Comment: Speci men Type: BLOOD SPECIMENOrdering Facility: [facility] Address: [address] [place] [address] Result Comment: Phos phatidylethanol (PEth) is a [...] was developed and its performance characteristicsdetermined by [facility]. It has not been cleared orapproved by the U.S. Food and Drug Administration. This test wasperformed in a CLIA-certified laboratory and is intended forclinical purposes.Performed By: [facility] [place], [place] [address]Ugxidspxsw Director: Lizandro Ordonez MD, PhDCLIA Number: [id number] Performed By: #### P ETH ####[facility] LABORATORIESIA [id number] [place] [address] PT panel Coag (PPP)on 2024 INR Coag (PPP) [Relative time] 1.9 {INR} High 0.9-1.[address] [facility] Comment on above: Order Comment: Speci men Type: BLOOD SPECIMENOrdering Facility: [facility] Address: [address] [place] [address] Result Comment: Sarah min K Antagonist (VKA) Therapeutic Range: INR 2 to 3 (Target INR of 2.5)Note: For patients treated with VKA drugs, such as warfarin, the [place] [employer] 2012 Guideline recommends [...] al. Chest 2012, 141:7S-47SNishimura RA, et al. [facility] 2017, 70: 252-289 Performed By: #### 3 4528-0, 5-7 ####[facility] LABCLIA [id number] [place] [address] [place] PT Coag (PPP) [Time] 19.9 s High 9.7-13.0 [facility] Comment on above: Order Comment: Speci men Type: BLOOD SPECIMENOrdering Facility: [facility] Address: [address] [place] [address] Performed By: #### 3 4528-0, 7 ####[facility] [id number] [address] OF [facility] Pathology biopsy report Marco Antonio (Tiss)on 11-13-2024 AP DISCLAIMER Normal [facility] Comment on above: Order Comment: Speci men Type: TISSUE SPECIMENOrdering Facility: [facility] Address: [address] [place] [address] Result Comment: Shellie pugh Developed Test (LDT) Disclaimer:Performance characteristics of immunohistochemical, immunofluorescent, and chromogenic in-situ hybridization tests have been determined by the performing laboratory within [facility]'s [facility] Pathology and Laboratory Medicine Department ([facility], [facility], [facility], [facility], [facility], [facility], or [facility]) in a manner consistent with CLIA requirements. [...] Performed By: #### 6 6121-5 ####[facility]ORYCLIA [id number] [place] [address] LABCLIA [id number] [address] [address] [place] CASE REPORT Normal [facility] Comment on above: Order Comment: Speci men Type: TISSUE SPECIMENOrdering Facility: [facility] Address: [address] [place] [address] Result Comment: [facility] Pathology Report Case: [id number] Provider: Thai Pineda MD Collected: 11/13/2024 09:40 AMOrdering Location: [place] [address] Received: 11/15/2024 03:18 PMPathologist: Axel Berger MDSpecimen: Esophagus, Biopsy, r/o esophageal candidiasis Performed By: #### 6 6121-5 ####[facility]ORATORYCLIA [id number] [address] LABCLIA [id number] [address] [place] FINAL DIAGNOSIS Normal [facility] Comment on above: Order Comment: Speci men Type: TISSUE SPECIMENOrdering Facility: [facility] Address: [address] [place] [address] Result Comment: Ashly kaye, biopsy:- Squamous mucosal candidiasis.JEL 11/16/2024 at 1034 EDT Performed By: #### 6 6121-5 ####[facility]OR[facility]ORYCLIA [id number] [address] LABCLIA [id number] [address] [address] [facility] [place] FINAL PERFORMING LAB Normal [facility] Comment on above: Order Comment: Speci men Type: TISSUE SPECIMENOrdering Facility: [facility] Address: [address] [place] [address] Result Comment: Diag nostic interpretation performed at: [facility], [address] [place] [id number] CLIA# [id number] Director: Rick Harris MD Performed By: #### 6 6121-5 ####[facility]ORYCLIA [id number] [address] LABCLIA [id number] [place] [address] [place] GROSS DESCRIPTION Normal [facility] Comment on above: Order Comment: Speci men Type: TISSUE SPECIMENOrdering Facility: [facility] Address: [address] [place] [address] Result Comment: A. Karma iglesias, BiopsyReceived in formalin are multiple pieces of espitia, soft tissue aggregating to 0.9 x 0.2 x 0.2 cm. Totally submitted in one cassette.BC November 15, 2024 4:50 PMGross examination performed at [facility], [address] [place] [address] Performed By: #### 6 6121-5 ####[facility]ORATORYCLIA [id number] [address] LABCLIA [id number] [place] [address] [place] Phosphate SerPl-mCncon 11-13 Phosphate [Mass/Vol] 1.5 mg/dL Low 2.7-4.8 [facility] Comment on above: Order Comment: Speci men Type: BLOOD SPECIMENOrdering Facility: [facility] Address: [address] [place] [address] Performed By: #### 2 777-1, 3016-3 ####[facility] LABIA [id number] [place] [address] [place] RUBEOLA (MEASLES)IGGon 11-13 MEASLES IGG AB, QUAL Positive Normal Positive [facility] Comment on above: Order Comment: Speci men Type: BLOOD SPECIMENOrdering Facility: [facility] Address: [address] [place] [address] Result Comment: The result suggests recent or past exposure to Measles virus or Measles vaccination. The current test does not detect neutralizing antibodies. Positive result may also be seen due to presence of passively-transferred antibodies. Please correlate with patient's history. Performed By: #### 7 852-7, MEASLG, VZVG2, 1988-10 ####[facility] LABCLIA [id number] [place] [id number] [place] Reagin and Treponema pallidu m IgG and IgM [Interp]on 11-13-2024 T. pallidum IgG+IgM IA Ql (S) Non-Reactive Normal Nonreactive [facility] Comment on above: Order Comment: Speci men Type: BLOOD SPECIMENOrdering Facility: [facility] Address: [address] [place] [address] Performed By: #### 7 3752-8, AHAVG, STRSER, MUMPSG ####[facility] [id number] [place] [address] [place] Reagin+T pallidum IgG+IgM Se rPl-Impon 11-13-2024 Reagin and Treponema pallidum IgG and IgM [Interp] Cannot exclude recent Treponemal infection if specimen collected within 7-10 days after appearance of suspect lesions or 2-3 weeks after an exposure. Clinical correlation is required. Normal [facility] Comment on above: Order Comment: Speci men Type: BLOOD SPECIMENOrdering Facility: [facility] Address: [address] [place] [address] Performed By: #### 7 3752-8, AHAVG, STRSER, MUMPSG ####[facility] [id number] [place] [id number] [place] STAPHYLOCOCCUS AUREUS AND MR SA SCREEN, PCR, NASALon 11-13-2024 S. aureus and MRSA panel ANANTH+probe (Nose) Not detected Normal Not Detected [facility] Comment on above: Order Comment: Speci men Type: SWABOrdering Facility: [facility] Address: [address] [place] [address] Performed By: #### S APCR ####[facility] [id number] [address] [place] STRONGYLOIDES IGG BLon 11-13 STRONGYLOIDES IGG QUALITATIVE Negative Normal Negative [facility] Comment on above: Order Comment: Ezekiel ramirez Type: BLOOD SPECIMENOrdering Facility: [facility] Address: [address] [place] [address] Performed By: #### S TRSER ####[facility] [id number] [place] [address] [place] Performed By: #### 7 3752-8, AHAVG, STRSER, MUMPSG ####[facility] [id number] [address] T. gondii IgG Qn (S)on 11-13 TOXO IGG QUAL Negative Normal Negative [facility] Comment on above: Order Comment: Ezekiel ramirez Type: BLOOD SPECIMENOrdering Facility: [facility] Address: [address] [place] [address] Result Comment: No s erological evidence of past exposure to Toxoplasma gondii. Cannot exclude recent infection if the specimen collected within 3-4 weeks after infection. Performed By: #### 8 039-0, 7885-7 ####[facility] [id number] [address] [place] THERAPY NTon 11-13-2024 THERAPY NT Normal [facility] TOXICOLOGY PANEL BLDon 11-13 Acetaminophen [Mass/Vol] ug/mL Low 10-[address] [facility] Comment on above: Order Comment: Ezekiel ramirez Type: BLOOD SPECIMENOrdering Facility: [facility] Address: [address] [place] [address] Result Comment: Toxi c > 150 ug/mL 4 hours post ingestionThe Viviana Figueroa nomogram can be used to estimate the probability of hepatotoxicity via the relationship of plasma acetaminophen concentration to the post ingestion interval. (Skylar. Pediatrics. 1975. 55:871 to 876 and Viviana et al. [employer]. 1981. 141:380 to 385).Reference ranges and high/low indicator flags are provided as general guidelines only. The treating physician must determine appropriate target levels/dosing based on the specific clinical situation. Performed By: #### T OXP ####[facility] [id number] [address] [address] [place] Ethanol [Mass/Vol] mg/dL Normal <11 [facility] Comment on above: Order Comment: Speci james Type: BLOOD SPECIMENOrdering Facility: [facility] Address: [address] [place] [address] Performed By: #### T OXP ####[facility] [id number] [address] [address] [place] Salicylates [Mass/Vol] mg/dL Low 3.0-30.0 [facility] Comment on above: Order Comment: Ezekiel ramirez Type: BLOOD SPECIMENOrdering Facility: [facility] Address: [address] [place] [address] Result Comment: The therapeutic range varies and has been reported to be 3.0 to 10.0 mg/dL for anti pyretic/analgesic conditions and 15.0 to 30.0 mg/dL for anti inflammatory/rheumatic fever conditions. Ranges published by the instrument marble installation helper.Reference ranges and high/low indicator flags are provided as general guidelines only. The treating physician must determine appropriate target levels/dosing based on the specific clinical situation. Performed By: #### T OXP ####[facility] [id number] [address] [address] [place] TSH SerPl-aCncon 11-13-2024 TSH Qn 0.633 m[IU]/L Normal 0.270-4.[address] [facility] Comment on above: Order Comment: Ezekiel ramirez Type: BLOOD SPECIMENOrdering Facility: [facility] Address: [address] [place] [address] Performed By: #### 2 777-1, 3016-3 ####[facility] [id number] [place] [id number] [place] Upper GI endoscopyon 025 Upper GI endoscopy Normal [facility] VARICELLA ZOSTER IGGon 11-13 VARICELLA ZOSTER IGG, QUAL Positive Normal Positive [facility] Comment on above: Order Comment: Speci men Type: BLOOD SPECIMENOrdering Facility: [facility] Address: [address] [place] [address] Result Comment: The result suggests recent or past exposure to Varicella-Zoster virus or chickenpox vaccination or zoster vaccination. Positive result may also be seen due to presence of passively-transferred antibodies. Please correlate with patient's history. Performed By: #### 7 852-7, MEASLG, VZVG2, 1988-10 ####[facility] [id number] [place] [address] [place] Vit A SerPl-mCncon Retinol [Mass/Vol] 0.03 mg/L Low 0.30-1.20 [facility] Comment on above: Order Comment: Speci james Type: BLOOD SPECIMENOrdering Facility: [facility] Address: [address] [place] [address] Result Comment: This test was developed, and its performance characteristics determined by the [facility] Department of Pathology and Laboratory Medicine. It has not been cleared or approved by the FDA. The [facility] Department of Pathology and Laboratory Medicine is regulated under CLIA as qualified to perform high-complexity testing. This test is used for clinical purposes. It should not be regarded as investigational or for research. Performed By: #### 2 923-1, 1823-4 ####[facility] [id number] [place] [address] [place] Zinc SerPl-mCncon 11-13-2024 Zinc [Mass/Vol] 60 ug/dL Normal 60-[address] [facility] Comment on above: Order Comment: Meggani men Type: BLOOD SPECIMENOrdering Facility: [facility] Address: [address] [place] [address] Result Comment: This test was developed, and its performance characteristics determined by the [facility] Department of Pathology and Laboratory Medicine. It has not been cleared or approved by the FDA. The [facility] Department of Pathology and Laboratory Medicine is regulated under CLIA as qualified to perform high-complexity testing. This test is used for clinical purposes. It should not be regarded as investigational or for research. Performed By: #### 5 763-8 ####[facility] [id number] [place] [address] [place] AFP SerPl-mCncon 11-12-2024 AFP [Mass/Vol] 2.25 ng/mL Normal <9.[address] [facility] Comment on above: Order Comment: Speci men Type: BLOOD SPECIMENOrdering Facility: [facility] Address: [address] [place] [address] Result Comment: The Alpha-Fetoprotein test was performed using the Amplifinity DxI immunoenzymatic assay. Results obtained with different assay methods or kits cannot be used interchangeably. Performed By: #### 1 834-1 ####[facility] [id number] [address] [place] ARTERIAL BLOOD GASESon 11-12 Base deficit (BldA) [Moles/Vol] -8 mmol/L Low -2-[address] [facility] Comment on above: Order Comment: Speci men Type: ARTERIAL BLOOD SPECIMENOrdering Facility: [facility] Address: [address] [place] [address] Performed By: #### A LLBG ####[facility] [id number] [place] [address] [place] Body temperature 98.6 [degF] Normal [facility] Comment on above: Order Comment: Speci men Type: ARTERIAL BLOOD SPECIMENOrdering Facility: [facility] Address: [address] [place] [address] Performed By: #### A LLBG ####[facility] [id number] [place] [address] [place] Calcium.ionized (Bld) [Mass/Vol] 1.20 mmol/L Normal 1.08-1.[address] [facility] Comment on above: Order Comment: Speci men Type: ARTERIAL BLOOD SPECIMENOrdering Facility: [facility] Address: [address] [place] [address] Performed By: #### A LLBG ####[facility] [id number] [place] [address] [place] Calcium.ionized adjusted to pH 7.4 (BldA) [Moles/Vol] 1.24 mmol/L Normal 1.08-1.[address] [facility] Comment on above: Order Comment: Speci men Type: ARTERIAL BLOOD SPECIMENOrdering Facility: [facility] Address: [address] [place] [address] Performed By: #### A LLBG ####[facility] [id number] [place] [address] [place] Carboxyhemoglobin (BldA) [Mass fraction] 2.0 % Normal 0.0-2.[address] [facility] Comment on above: Order Comment: Speci men Type: ARTERIAL BLOOD SPECIMENOrdering Facility: [facility] Address: [address] [place] [address] Result Comment: Carb oxyhemoglobin Reference Range for Smokers: 2.0-8.0% Performed By: #### A LLBG ####[facility] [id number] [place] [address] [place] CO2 (Bld) [Partial pressure] 21 mm Hg Low 36-[address] [facility] Comment on above: Order Comment: Speci men Type: ARTERIAL BLOOD SPECIMENOrdering Facility: [facility] Address: [address] [place] [address] Performed By: #### A LLBG ####[facility] [id number] [place] [address] [place] Glucose [Mass/Vol] 276 mg/dL High 60-105 [facility] Comment on above: Order Comment: Speci men Type: ARTERIAL BLOOD SPECIMENOrdering Facility: [facility] Address: [address] [place] [address] Performed By: #### A LLBG ####[facility] [id number] [facility] [place] [id number] [place] HCO3 (Bld) [Moles/Vol] 15 mmol/L Low 22-26 [facility] Comment on above: Order Comment: Speci men Type: ARTERIAL BLOOD SPECIMENOrdering Facility: [facility] Address: [address] [place] [address] Performed By: #### A LLBG ####[facility] [id number] [place] [address] [place] Hematocrit (Bld) [Volume fraction] 22.4 % Low 39.0-51.[address] [facility] Comment on above: Order Comment: Speci men Type: ARTERIAL BLOOD SPECIMENOrdering Facility: [facility] Address: [address] [place] [address] Performed By: #### A LLBG ####[facility] [id number] [place] [address] [place] Hemoglobin (Bld) [Mass/Vol] 7.2 g/dL Low 13.0-17.[address] [facility] Comment on above: Order Comment: Speci men Type: ARTERIAL BLOOD SPECIMENOrdering Facility: [facility] Address: [address] [place] [address] Performed By: #### A LLBG ####[facility] [id number] [place] [id number] [place] Lactate [Moles/Vol] 2.9 mmol/L High 0.5-2.2 [facility] Comment on above: Order Comment: Speci men Type: ARTERIAL BLOOD SPECIMENOrdering Facility: [facility] Address: [address] [place] [id number] Performed By: #### A LLBG ####[facility] [id number] [place] [id number] [place] Methemoglobin (Bld) [Mass fraction] 1.0 % Normal 0.0-1.[address] [facility] Comment on above: Order Comment: Speci men Type: ARTERIAL BLOOD SPECIMENOrdering Facility: [facility] Address: [address] [place] [address] Performed By: #### A LLBG ####[facility] [id number] [place] [id number] [place] O2 THERAPY RA=Room Air Normal [facility] Comment on above: Order Comment: Speci men Type: ARTERIAL BLOOD SPECIMENOrdering Facility: [facility] Address: [address] [place] [address] Performed By: #### A LLBG ####[facility] [id number] [place] [id number] [place] Oxygen (Bld) [Partial pressure] 94 mm Hg Normal 85-[address] [facility] Comment on above: Order Comment: Speci men Type: ARTERIAL BLOOD SPECIMENOrdering Facility: [facility] Address: [address] [place] [address] Performed By: #### A LLBG ####[facility] [id number] [place] [id number] [place] Oxyhemoglobin (BldA) [Mass fraction] 96 % Normal 95-[address] [facility] Comment on above: Order Comment: Speci men Type: ARTERIAL BLOOD SPECIMENOrdering Facility: [facility] Address: [address] [place], [place] [address] Performed By: #### A LLBG ####[facility] [id number] [address] [address] [place] pH (Bld) 7.46 [pH] High 7.35-7.[address] [facility] Comment on above: Order Comment: Speci men Type: ARTERIAL BLOOD SPECIMENOrdering Facility: [facility] Address: [address] [place] [address] Performed By: #### A LLBG ####[facility] [id number] [address] [address] [place] PO2 / FIO2 RATIO 448 mmHg Normal >300 [facility] Comment on above: Order Comment: Speci men Type: ARTERIAL BLOOD SPECIMENOrdering Facility: [facility] Address: [address] [place] [address] Performed By: #### A LLBG ####[facility] [id number] [place] [address] [place] Potassium [Moles/Vol] 3.9 mmol/L Normal 3.5-5.0 [facility] Comment on above: Order Comment: Speci men Type: ARTERIAL BLOOD SPECIMENOrdering Facility: [facility] Address: [address] [place] [address] Performed By: #### A LLBG ####[facility] [id number] [place] [address] [place] Sodium [Moles/Vol] 124 mmol/L Low 136-144 [facility] Comment on above: Order Comment: Speci men Type: ARTERIAL BLOOD SPECIMENOrdering Facility: [facility] Address: [address] [place] [address] Performed By: #### A LLBG ####[facility] [id number] [address] [address] [place] Bacteria Ur Culton 5 Bacteria identified Cx Nom (U) Normal [facility] Comment on above: Performed By: #### 6 30-4, 32961-6 ####[facility] [id number] [address] [address] [place] Basic metabolic 2000 panelon 11-12-2024 Anion gap [Moles/Vol] 11 mmol/L Normal 8-15 [facility] Comment on above: Order Comment: Speci men Type: BLOOD SPECIMENOrdering Facility: [facility] Address: [address] [place] [address] Performed By: #### 2 4321-2, 29220-1, 2776-1 ####[facility] [id number] [facility] [address] [address] [place] Calcium [Mass/Vol] 9.2 mg/dL Normal 8.5-10.2 [facility] Comment on above: Order Comment: Speci men Type: BLOOD SPECIMENOrdering Facility: [facility] Address: [address] [place] [address] Performed By: #### 2 4321-2, 74584-3, 2776- ####[facility] [id number] [place] [id number] [place] Chloride [Moles/Vol] 99 mmol/L Normal 98-107 [facility] Comment on above: Order Comment: Speci men Type: BLOOD SPECIMENOrdering Facility: [facility] Address: [address] [place] [address] Performed By: #### 2 4321-2, 81441-7, 2776- ####[facility] [id number] [facility] [place] [id number] [place] CO2 [Moles/Vol] 14 mmol/L Low 22-[address] [facility] Comment on above: Order Comment: Speci men Type: BLOOD SPECIMENOrdering Facility: [facility] Address: [address] [place] [address] Performed By: #### 2 4321-2, 51836-6, 2776-1 ####[facility] [id number] [facility] [address] [place] [address] [place] Creatinine [Mass/Vol] 1.22 mg/dL Normal 0.73-1.22 [facility] Comment on above: Order Comment: Ezekiel ramirez Type: BLOOD SPECIMENOrdering Facility: [facility] Address: [address] [place] [address] Performed By: #### 2 4321-2, 47705-4, 2777-1 ####[facility] [id number] [place] [id number] [place] Creatinine and Glomerular filtration rate.predicted panel (S/P/Bld) 69 mL/min/1.73m??? Normal >=[address] [facility] Comment on above: Order Comment: Ezekiel ramirez Type: BLOOD SPECIMENOrdering Facility: [facility] Address: [address] [place] [address] Result Comment: Patric mated Glomerular Filtration Rate [...] actual GFR. Performed By: #### 2 4321-2, 98911-4, 27702-01 ####[facility] [id number] [place] [id number] [place] Glucose [Mass/Vol] 304 mg/dL High 74-99 [facility] Comment on above: Order Comment: Ezekiel ramirez Type: BLOOD SPECIMENOrdering Facility: [facility] Address: [address] [place] [address] Result Comment: The [place] [employer] (ADA) provides guidance for cutoff [...] Standards of Medical Care in Diabetes 2016, [place] [employer]. Diabetes Care. 2016.39(Suppl 1). Performed By: #### 2 4321-2, 83221-2, 2776- ####[facility] [id number] [address] [address] [place] Potassium [Moles/Vol] 4.3 mmol/L Normal 3.7-5.1 [facility] Comment on above: Order Comment: Speci men Type: BLOOD SPECIMENOrdering Facility: [facility] Address: [address] [place] [id number] Performed By: #### 2 4321-2, 55037-7, 2776-08 ####[facility] [id number] [address] [address] [place] Sodium [Moles/Vol] 124 mmol/L Low 136-144 [facility] Comment on above: Order Comment: Speci men Type: BLOOD SPECIMENOrdering Facility: [facility] Address: [address] [place] [address] Performed By: #### 2 4321-2, 02652-8, 2776-08 ####[facility] [id number] [address] [address] [place] Urea nitrogen [Mass/Vol] 22 mg/dL Normal 9-[address] [facility] Comment on above: Order Comment: Speci men Type: BLOOD SPECIMENOrdering Facility: [facility] Address: [address] [place] [address] Performed By: #### 2 4321-2, 73128-9, 2776-08 ####[facility] [id number] [address] [address] [place] CASE MGT INIT ASSESon 2024 CASE MGT INIT ASSES Normal [facility] CBC panel Auto (Bld)on 11-12 Erythrocyte distribution width (RBC) [Ratio] 16.9 % High 11.5-15.[address] [facility] Comment on above: Order Comment: Speci men Type: BLOOD SPECIMENOrdering Facility: [facility] Address: [address] [place] [address] Performed By: #### 5 8410-2 ####[facility] [id number] [place] [address] [place] Hematocrit (Bld) [Volume fraction] 21.7 % Low 39.0-51.[address] [facility] Comment on above: Order Comment: Speci men Type: BLOOD SPECIMENOrdering Facility: [facility] Address: [address] [place] [address] Performed By: #### 5 8410-2 ####[facility] [id number] [place] [address] [place] Hemoglobin (Bld) [Mass/Vol] 7.5 g/dL Low 13.0-17.[address] [facility] Comment on above: Order Comment: Speci men Type: BLOOD SPECIMENOrdering Facility: [facility] Address: [address] [place] [address] Performed By: #### 5 8410-2 ####[facility] [id number] [place] [address] [place] MCH (RBC) [Entitic mass] 31.5 pg Normal 26.0-34.[address] [facility] Comment on above: Order Comment: Speci men Type: BLOOD SPECIMENOrdering Facility: [facility] Address: [address] [place] [address] Performed By: #### 5 8410-2 ####[facility] [id number] [place] [address] [place] MCHC (RBC) [Mass/Vol] 34.6 g/dL Normal 30.5-36.0 [facility] Comment on above: Order Comment: Speci men Type: BLOOD SPECIMENOrdering Facility: [facility] Address: [address] [place] [address] Performed By: #### 5 8410-2 ####[facility] [id number] [address] [place] MCV (RBC) [Entitic vol] 91.2 fL Normal 80.0-100.0 [facility] Comment on above: Order Comment: Speci men Type: BLOOD SPECIMENOrdering Facility: [facility] Address: [address] [place] [address] Performed By: #### 5 8410-2 ####[facility] [id number] [place] [address] [place] Nucleated RBC (Bld) [#/Vol] 10*3/uL Normal <0.[address] [facility] Comment on above: Order Comment: Speci men Type: BLOOD SPECIMENOrdering Facility: [facility] Address: [address] [place] [address] Performed By: #### 5 8410-2 ####[facility] [id number] [place] [address] [place] Platelet mean volume (Bld) [Entitic vol] 10.8 fL Normal 9.0-12.[address] [facility] Comment on above: Order Comment: Speci men Type: BLOOD SPECIMENOrdering Facility: [facility] Address: [address] [place] [address] Performed By: #### 5 8410-2 ####[facility] [id number] [place] [address] [place] Platelets (Bld) [#/Vol] 31 10*3/uL Low 150-400 [facility] Comment on above: Order Comment: Speci men Type: BLOOD SPECIMENOrdering Facility: [facility] Address: [address] [place] [address] Result Comment: Resu lts checked and verified.No clot detected. Performed By: #### 5 8410-2 ####[facility] [id number] [address] [address] [place] RBC (Bld) [#/Vol] 2.38 10*6/uL Low 4.20-6.00 [facility] Comment on above: Order Comment: Speci men Type: BLOOD SPECIMENOrdering Facility: [facility] Address: [address] [place] [address] Performed By: #### 5 8410-2 ####[facility] [id number] [place] [address] [place] WBC (Bld) [#/Vol] 6.35 10*3/uL Normal 3.70-11.00 [facility] Comment on above: Order Comment: Speci men Type: BLOOD SPECIMENOrdering Facility: [facility] Address: [address] [place] [address] Performed By: #### 5 8410-2 ####[facility] [id number] [place] [address] [place] Erythrocyte distribution width (RBC) [Ratio] 17.3 % High 11.5-15.[address] [facility] Comment on above: Order Comment: Speci men Type: BLOOD SPECIMENOrdering Facility: [facility] Address: [address] [place] [address] Performed By: #### 5 8410-2 ####[facility] [id number] [place] [id number] [place] Hematocrit (Bld) [Volume fraction] 22.9 % Low 39.0-51.[address] [facility] Comment on above: Order Comment: Speci men Type: BLOOD SPECIMENOrdering Facility: [facility] Address: [address] [place] [address] Performed By: #### 5 8410-2 ####[facility] [id number] [place] [address] [place] Hemoglobin (Bld) [Mass/Vol] 7.9 g/dL Low 13.0-17.[address] [facility] Comment on above: Order Comment: Speci men Type: BLOOD SPECIMENOrdering Facility: [facility] Address: [address] [place] [address] Performed By: #### 5 8410-2 ####[facility]CL[facility] [id number] [address] [place] MCH (RBC) [Entitic mass] 31.5 pg Normal 26.0-34.[address] [facility] Comment on above: Order Comment: Speci men Type: BLOOD SPECIMENOrdering Facility: [facility] Address: [address] [place] [address] Performed By: #### 5 8410-2 ####[facility] [id number] [address] [place] MCHC (RBC) [Mass/Vol] 34.5 g/dL Normal 30.5-36.0 [facility] Comment on above: Order Comment: Speci men Type: BLOOD SPECIMENOrdering Facility: [facility] Address: [address] [place] [address] Performed By: #### 5 8410-2 ####[facility] [id number] [place] [address] [place] MCV (RBC) [Entitic vol] 91.2 fL Normal 80.0-100.0 [facility] Comment on above: Order Comment: Speci men Type: BLOOD SPECIMENOrdering Facility: [facility] Address: [address] [place] [address] Performed By: #### 5 8410-2 ####[facility] [id number] [address] [place] Nucleated RBC (Bld) [#/Vol] 10*3/uL Normal <0.[address] [facility] Comment on above: Order Comment: Speci men Type: BLOOD SPECIMENOrdering Facility: [facility] Address: [address] [place] [address] Performed By: #### 5 8410-2 ####[facility] [id number] [place] [address] [place] Platelet mean volume (Bld) [Entitic vol] 11.6 fL Normal 9.0-12.[address] [facility] Comment on above: Order Comment: Speci men Type: BLOOD SPECIMENOrdering Facility: [facility] Address: [address] [place] [address] Performed By: #### 5 8410-2 ####[facility] [id number] [place] [address] [place] Platelets (Bld) [#/Vol] 33 10*3/uL Low 150-400 [facility] Comment on above: Order Comment: Speci men Type: BLOOD SPECIMENOrdering Facility: [facility] Address: [address] [place] [address] Result Comment: Resu lts checked and verified.No clot detected. Performed By: #### 5 8410-2 ####[facility] [id number] [place] [address] [place] RBC (Bld) [#/Vol] 2.51 10*6/uL Low 4.20-6.00 [facility] Comment on above: Order Comment: Speci men Type: BLOOD SPECIMENOrdering Facility: [facility] Address: [address] [place] [address] Performed By: #### 5 8410-2 ####[facility] [id number] [place] [address] [place] WBC (Bld) [#/Vol] 7.27 10*3/uL Normal 3.70-11.00 [facility] Comment on above: Order Comment: Speci men Type: BLOOD SPECIMENOrdering Facility: [facility] Address: [address] [place] [address] Performed By: #### 5 8410-2 ####[facility] [id number] [place] [address] [place] CITRATED PLATELET COUNTon CITRATED PLATELET COUNT (WAM) 33 k/uL Low 150-[address] [facility] Comment on above: Order Comment: Speci men Type: BLOOD SPECIMENOrdering Facility: [facility] Address: [address] [place] [address] Result Comment: Plat elet count confirmed by manual review of peripheral blood smear. No clot detected. Performed By: #### C ITPLT ####[facility] [id number] [place] [address] [place] CNCNPATEDon 11-12-2024 CNCNPATED Normal [facility] CNPNon 11-12-2024 CNPN Normal [facility] CONFIRM BLOOD TYPEon 025 ABO O Normal [facility] Comment on above: Order Comment: Speci men Type: BLOOD SPECIMENOrdering Facility: [facility] Address: [address] [place] [address] Performed By: #### C ONABO ####[facility] BLOOD BANKIA [id number] [place] [address] [place] Rh Nom (Bld) Positive Normal [facility] Comment on above: Order Comment: Speci men Type: BLOOD SPECIMENOrdering Facility: [facility] Address: [address] [place] [address] Performed By: #### C ONABO ####[facility] BLOOD BANKCLIA [id number] [place] [address] [place] CONSULTon 11-12-2024 CONSULT Normal [facility] CONSULT Normal [facility] CONSULT Normal [facility] CONSULT Normal [facility] CONSULT Normal [facility] CONSULT Normal [facility] CT CHEST WO IVCONon 04-11-[address] CHEST WO IVCON Normal [facility] D dimer FEU PPP-mCncon 11-12 Fibrin D-dimer FEU (PPP) [Mass/Vol] 3850 ng/mL FEU High <[address] [facility] Comment on above: Order Comment: Speci men Type: BLOOD SPECIMENOrdering Facility: [facility] Address: [address] [place] [address] Performed By: #### 4 8065-7 ####[facility] [id number] [place] [address] [place] ECHO WITH AGITATED SALINE CO NTRASTon 11-12-2024 ECHO WITH AGITATED SALINE CONTRAST Normal [facility] Fibrin D-dimer FEU (PPP) [Ma ss/Vol]on 11-12-2024 D DIMER AGE-RELATED CUTOFF 580 ng/mL FEU Normal [facility] Comment on above: Order Comment: Speci men Type: BLOOD SPECIMENOrdering Facility: [facility] Address: [address] [place] [address] Performed By: #### 4 8065-7 ####[facility] [id number] [place] [address] [place] Hepatic function 2000 panelo n 11-12-2024 Albumin [Mass/Vol] 3.0 g/dL Low 3.9-4.9 [facility] Comment on above: Order Comment: Speci men Type: BLOOD SPECIMENOrdering Facility: [facility] Address: [address] [place] [address] Performed By: #### 2 4321-2, 42275-1, 2777-1 ####[facility] [id number] [place] [address] [place] ALP [Catalytic activity/Vol] 252 U/L High 38-[address] [facility] Comment on above: Order Comment: Speci men Type: BLOOD SPECIMENOrdering Facility: [facility] Address: [address] [place] [address] Performed By: #### 2 4321-2, 71188-0, 277-1 ####[facility] [id number] [address] [address] [place] ALT [Catalytic activity/Vol] 24 U/L Normal 10-[address] [facility] Comment on above: Order Comment: Speci men Type: BLOOD SPECIMENOrdering Facility: [facility] Address: [address] [place] [address] Performed By: #### 2 4321-2, 23860-7, 277- ####[facility] [id number] [place] [id number] [place] AST [Catalytic activity/Vol] 41 U/L High 14-[address] [facility] Comment on above: Order Comment: Speci men Type: BLOOD SPECIMENOrdering Facility: [facility] Address: [address] [place] [address] Performed By: #### 2 4321-2, 80257-1, 277- ####[facility] [id number] [address] [address] [place] Bilirubin [Mass/Vol] 1.8 mg/dL High 0.2-1.3 [facility] Comment on above: Order Comment: Speci men Type: BLOOD SPECIMENOrdering Facility: [facility] Address: [address] [place] [address] Performed By: #### 2 4321-2, 51229-1, 277- ####[facility] [id number] [address] [address] [place] Bilirubin.conjugated [Mass/Vol] 0.9 mg/dL High <0.[address] [facility] Comment on above: Order Comment: Speci men Type: BLOOD SPECIMENOrdering Facility: [facility] Address: [address] [place] [address] Result Comment: Resu lts may be falsely decreased due to interference from hemolysis. Suggest reorder as clinically indicated. Performed By: #### 2 4321-2, 08305-4, 277-1 ####[facility] [id number] [place] [address] [place] Protein [Mass/Vol] 5.5 g/dL Low 6.3-8.0 [facility] Comment on above: Order Comment: Speci men Type: BLOOD SPECIMENOrdering Facility: [facility] Address: [address] [place] [address] Performed By: #### 2 4321-2, 57991-1, 2776-08 ####[facility] [id number] [place] [address] [place] MEDICAL EMERon 11-12-2024 MEDICAL KRISTINA Normal [facility] NURSING PROGon 11-12-2024 NURSING PROG Normal [facility] NURSING PROG Normal [facility] NURSING PROG Normal [facility] NURSING PROG Normal [facility] NUTRITIONon 11-12-2024 NUTRITION Normal [facility] PTT, ANTICOAGULANT THERAPYon 11-12-2024 aPTT Coag (PPP) [Time] 62.6 s High 23.0-32.4 [facility] Comment on above: Order Comment: Speci men Type: BLOOD SPECIMENOrdering Facility: [facility] Address: [address] [place] [address] Performed By: #### P TTAC ####[facility] [id number] [place] [address] [place] Phosphate SerPl-mCncon 11-12 Phosphate [Mass/Vol] 2.3 mg/dL Low 2.7-4.8 [facility] Comment on above: Order Comment: Speci men Type: BLOOD SPECIMENOrdering Facility: [facility] Address: [address] [place] [address] Performed By: #### 2 4321-2, 20101-3, 2777-1 ####[facility] [id number] [place] [id number] [place] SOCIAL WORKon 11-12-2024 SOCIAL WORK Normal [facility] THERAPY NTon 11-12-2024 THERAPY NT Normal [facility] THERAPY NT Normal [facility] THROMBOGRAPH PANELon 025 Clot angle TEG (Bld) [Angle] 32.8 degrees Low 47.0-74.[address] [facility] Comment on above: Order Comment: Speci men Type: BLOOD SPECIMENOrdering Facility: [facility] Address: [address] [place] [address] Performed By: #### T EGPNP ####[facility] [id number] [place] [address] [place] Clot Lysis 30 Min post maximum clot amplitude TEG (Bld) [Length fraction] 0.0 % Normal 0.0-8.[address] [facility] Comment on above: Order Comment: Speci men Type: BLOOD SPECIMENOrdering Facility: [facility] Address: [address] [place] [address] Performed By: #### T EGPNP ####[facility] [id number] [place] [address] [place] Clotting time TEG (Bld) 5.0 minutes Normal 4.0-10.[address] [facility] Comment on above: Order Comment: Speci men Type: BLOOD SPECIMENOrdering Facility: [facility] Address: [address] [place] [address] Performed By: #### T EGPNP ####[facility] [id number] [place] [id number] [place] Coagulation index TEG Qn (Bld) -8.4 Low -4.6-3.[address] [facility] Comment on above: Order Comment: Speci men Type: BLOOD SPECIMENOrdering Facility: [facility] Address: [address] [place] [address] Result Comment: This test was developed, and its performance characteristics determined by the [facility] Department of Pathology and Laboratory Medicine. It has not been cleared or approved by the FDA. The [facility] Department of Pathology and Laboratory Medicine is regulated under CLIA as qualified to perform high-complexity testing. This test is used for clinical purposes. It should not be regarded as investigational or for research. Performed By: #### T EGCARLOSP ####[facility] [id number] [address] [place] OF [facility] Maximum clot firmness TEG (Bld) [Length] 28.5 mm Low 51.0-75.[address] [facility] Comment on above: Order Comment: Ezekiel ramirez Type: BLOOD SPECIMENOrdering Facility: [facility] Address: [address] [place] [address] Performed By: #### T EGPNP ####[facility] [id number] [address] [place] Thromboelastography after addtion of heparinase panel (Bld) Normal [facility] Comment on above: Order Comment: Ezekiel ramirez Type: BLOOD SPECIMENOrdering Facility: [facility] Address: [address] [place] [address] Result Comment: A th romboelastograph (TEG) study [...] timely manner. Performed By: #### T EGPNP ####[facility] [id number] [place] [address] [place] TOXICOLOGY SCREEN, ROUTINE U RINEon 11-12-2024 Amphetamines Confirm (U) [Mass/Vol] Negative Normal Negative [facility] Comment on above: Order Comment: Speci men Type: URINE SPECIMENOrdering Facility: [facility] Address: [address] [place] [address] Result Comment: Cuto ff threshold at 1000 ng/mL. Performed By: #### U TOX2 ####[facility] [id number] [place] [address] [place] BARBITURATES, URINE Negative Normal Negative [facility] Comment on above: Order Comment: Speci men Type: URINE SPECIMENOrdering Facility: [facility] Address: [address] [place] [address] Result Comment: Cuto ff threshold at 200 ng/mL. Performed By: #### U TOX2 ####[facility] [id number] [place] [address] [place] BENZODIAZEPINES, UR Negative Normal Negative [facility] Comment on above: Order Comment: Speci men Type: URINE SPECIMENOrdering Facility: [facility] Address: [address] [place] [address] Result Comment: Cuto ff threshold at 200 ng/mL. Performed By: #### U TOX2 ####[facility] [id number] [place] [address] [place] Cannabinoids Screen Ql (U) Negative Normal Negative [facility] Comment on above: Order Comment: Speci men Type: URINE SPECIMENOrdering Facility: [facility] Address: [address] [place] [address] Result Comment: Cuto ff threshold at 50 ng/mL. Performed By: #### U TOX2 ####[facility] [id number] [place] [address] [place] Cocaine Ql (U) Negative Normal Negative [facility] Comment on above: Order Comment: Speci men Type: URINE SPECIMENOrdering Facility: [facility] Address: [address] [place] [address] Result Comment: Cuto ff threshold at 300 ng/mL. Performed By: #### U TOX2 ####[facility] [id number] [place] [address] [place] Ethanol (U) [Mass/Vol] <11 Normal <11 Cl [facility] Comment on above: Order Comment: Speci men Type: URINE SPECIMENOrdering Facility: [facility] Address: [address] [place] [address] Performed By: #### U TOX2 ####[facility] [id number] [place] [address] [place] Opiates Screen Ql (U) Negative Normal Negative [facility] Comment on above: Order Comment: Speci men Type: URINE SPECIMENOrdering Facility: [facility] Address: [address] [place] [address] Result Comment: Cuto ff threshold at 300 ng/mL. Performed By: #### U TOX2 ####[facility] [id number] [place] [address] [place] oxyCODONE cutoff Screen (U) [Mass/Vol] Positive Abnormal Negative [facility] Comment on above: Order Comment: Speci men Type: URINE SPECIMENOrdering Facility: [facility] Address: [address] [place] [address] Result Comment: Cuto ff threshold at 100 ng/mL. Performed By: #### U TOX2 ####[facility] [id number] [place] [address] [place] Phencyclidine Ql (U) Negative Normal Negative [facility] Comment on above: Order Comment: Speci men Type: URINE SPECIMENOrdering Facility: [facility] Address: [address] [place] [address] Result Comment: Cuto ff threshold at 25 ng/mL. Performed By: #### U TOX2 ####[facility] [id number] [address] [place] TYPE + SCREENon 11-12-2024 ABO O Normal [facility] Comment on above: Order Comment: Speci men Type: BLOOD SPECIMENOrdering Facility: [facility] Address: [address] [place] [address] Performed By: #### T SCR ####[facility] BLOOD BANKIA [id number] [place] [address] [place] Rh Nom (Bld) Positive Normal [facility] Comment on above: Order Comment: Speci men Type: BLOOD SPECIMENOrdering Facility: [facility] Address: [address] [place] [address] Performed By: #### T SCR ####[facility] BLOOD BANKCLIA [id number] [place] [address] [place] TYPE AND SCREEN EXPIRATION 11/15/2024 23:[address] [facility] Comment on above: Order Comment: Speci men Type: BLOOD SPECIMENOrdering Facility: [facility] Address: [address] [place] [address] Performed By: #### T SCR ####[facility] BLOOD BANKCLIA [id number] [place] [address] [place] Urinalysis complete panel (U )on 11-12-2024 BACTERIA UL 1553.2 uL High Negative [facility] Comment on above: Order Comment: Speci men Type: URINE SPECIMENOrdering Facility: [facility] Address: [address] [place] [address] Performed By: #### 6 30-4, 76688-1 ####[facility] [id number] [place] [address] [place] Bilirubin Ql (U) 1+ Abnormal Negative [facility] Comment on above: Order Comment: Speci men Type: URINE SPECIMENOrdering Facility: [facility] Address: [address] [place] [address] Result Comment: Sugg est correlation with clinical findings and serum bilirubin if clinically indicated. Performed By: #### 6 30-4, 92176-0 ####[facility] [id number] [address] [place] [address] [place] Clarity (Unsp spec) Cloudy Abnormal Clear [facility] Comment on above: Order Comment: Speci men Type: URINE SPECIMENOrdering Facility: [facility] Address: [address] [place] [address] Performed By: #### 6 30-4, 97575-3 ####[facility] [id number] [address] [place] [address] [place] Color (U) [place] Abnormal Yellow [facility] Comment on above: Order Comment: Speci men Type: URINE SPECIMENOrdering Facility: [facility] Address: [address] [place] [address] Performed By: #### 6 30-4, 34870-1 ####[facility] [id number] [address] [place] [address] [place] Epithelial cells LM.HPF (Urine sed) [#/Area] None Seen Normal [facility] Comment on above: Order Comment: Speci men Type: URINE SPECIMENOrdering Facility: [facility] Address: [address] [place] [address] Performed By: #### 6 30-4, 89613-6 ####[facility] [id number] [address] [address] [place] Glucose Test strip (U) [Mass/Vol] Negative Normal Negative [facility] Comment on above: Order Comment: Speci men Type: URINE SPECIMENOrdering Facility: [facility] Address: [address] [place] [address] Performed By: #### 6 30-4, 54140-0 ####[facility] [id number] [place] [id number] [place] Hemoglobin Ql (U) 3+ Abnormal Negative [facility] Comment on above: Order Comment: Speci men Type: URINE SPECIMENOrdering Facility: [facility] Address: [address] [place] [address] Performed By: #### 6 30-4, 59814-3 ####[facility] [id number] [place] [address] [place] Hyaline casts (Urine sed) [#/Area] 0 /[LPF] Normal 0 /LPF [facility] Comment on above: Order Comment: Speci men Type: URINE SPECIMENOrdering Facility: [facility] Address: [address] [place] [address] Performed By: #### 6 30-4, 82964-2 ####[facility] [id number] [place] [address] [place] Ketones Ql (U) Negative Normal Negative [facility] Comment on above: Order Comment: Speci men Type: URINE SPECIMENOrdering Facility: [facility] Address: [address] [place] [address] Performed By: #### 6 30-4, 20700-5 ####[facility] [id number] [place] [id number] [place] Leukocyte esterase Test strip Ql (U) 2+ Abnormal Negative [facility] Comment on above: Order Comment: Speci men Type: URINE SPECIMENOrdering Facility: [facility] Address: [address] [place] [address] Performed By: #### 6 30-4, 18607-4 ####[facility] [id number] [place] [id number] [place] Nitrite Ql (U) Negative Normal Negative [facility] Comment on above: Order Comment: Speci men Type: URINE SPECIMENOrdering Facility: [facility] Address: [address] [place] [address] Performed By: #### 6 30-4, 55871-1 ####[facility] [id number] [address] [address] [place] pH (U) 6.0 [pH] Normal <8.[address] [facility] Comment on above: Order Comment: Speci men Type: URINE SPECIMENOrdering Facility: [facility] Address: [address] [place] [address] Performed By: #### 6 30-4, 71824-9 ####[facility] [id number] [place] [address] [place] Protein (U) [Mass/Vol] 3+ Abnormal Negative Cl [facility] Comment on above: Order Comment: Speci men Type: URINE SPECIMENOrdering Facility: [facility] Address: [address] [place] [address] Performed By: #### 6 30-4, 95362-1 ####[facility] [id number] [place] [address] [place] RBC LM.HPF (Urine sed) [#/Area] /[HPF] Abnormal 0-2 /HPF [facility] Comment on above: Order Comment: Speci men Type: URINE SPECIMENOrdering Facility: [facility] Address: [address] [place] [address] Performed By: #### 6 30-4, 36586-8 ####[facility] [id number] [place] [id number] [place] Specific gravity (U) [Rel density] 1.019 Normal 1.005-1.[address] [facility] Comment on above: Order Comment: Speci men Type: URINE SPECIMENOrdering Facility: [facility] Address: [address] [place] [address] Performed By: #### 6 30-4, 97558-5 ####[facility] [id number] [place] [address] [place] Urobilinogen Ql (U) 0.2 EU/dL Normal 0.2-1.0 EU/dL [facility] Comment on above: Order Comment: Speci men Type: URINE SPECIMENOrdering Facility: [facility] Address: [address] [place] [address] Performed By: #### 6 30-4, 35272-8 ####[facility] [id number] [place] [address] [place] WBC LM.HPF (Urine sed) [#/Area] /[HPF] Abnormal 0-5 /HPF [facility] Comment on above: Order Comment: Speci men Type: URINE SPECIMENOrdering Facility: [facility] Address: [address] [place] [address] Performed By: #### 6 30-4, 23967-9 ####[facility] [id number] [place] [address] [place] ALLIED HEALTHon 11-11-2024 ALLIED HEALTH Normal [facility] ALLIED HEALTH Normal [facility] ANTI PLT FACTOR 4 ABon 11-11 Heparin induced platelet IgG Marco Antonio (S) [Interp] Negative Normal Negative [facility] Comment on above: Order Comment: Speci men Type: BLOOD SPECIMENOrdering Facility: [facility] Address: [address] [place] [address] Result Comment: No a nti-platelet factor 4 IgG antibody is detected by ANDERS assay.Heparin-induced thrombocytopenia (HIT) is unlikely, but should be excluded based on clinical factors. Performed By: #### P LATF4 ####[facility] [id number] [place] [address] [place] Platelet factor 4 Qn (PPP) 0.184 OD Normal <0.[address] [facility] Comment on above: Order Comment: Speci men Type: BLOOD SPECIMENOrdering Facility: [facility] Address: [address] [place] [address] Result Comment: Not calculated Performed By: #### P LATF4 ####[facility] [id number] [place] [address] [place] Albumin Fld-mCncon 5 Albumin (Body fld) [Mass/Vol] <0.2 Normal See Comment [facility] Comment on above: Order Comment: Speci men Type: FLUID SPECIMENOrdering Facility: [facility] Address: [address] [place] [address] Result Comment: Body Fluid Albumin may be [...] document C49A. PAULETTE Diaz: Clinical Laboratory Standards [place]: 2007.2. Amy JACKSON. Serum to ascites albumin gradient. UpToDate. 2015. Accessed on November 15, 2015.This test was developed, and its performance characteristics determined by the [facility] Department of Pathology and Laboratory Medicine. It has not been cleared or approved by the FDA. The [facility] Department of Pathology and Laboratory Medicine is regulated under CLIA as qualified to perform high-complexity testing. This test is used for clinical purposes. It should not be regarded as investigational or for research. Performed By: #### 1 747-5, 1795-4, 64418-8, 2881-1 ####[facility] [id number] [place] [address] [place] Fluid Nom (Body fld) Abdomen Normal [facility] Comment on above: Order Comment: Speci men Type: FLUID SPECIMENOrdering Facility: [facility] Address: [address] [place] [address] Performed By: #### 1 747-5, 1795-4, 89294-4, 2881-1 ####[facility] [id number] [facility]ITAL[facility]az[facility] PORT GAMBLERAJESHK [id number] [place] [address] [place] Amylase Fld-cCncon 5 Amylase (Body fld) [Catalytic activity/Vol] 14 U/L Normal See Comment [facility] Comment on above: Order Comment: Speci james Type: FLUID SPECIMENOrdering Facility: [facility] Address: Fritz [place] [address] Result Comment: PLEU RAL FLUIDS:Amylase measurement in [...] Clinical Chemistry; Approved Guideline. CLSI document C49-A. Joe PA: Clinical Laboratory Standards [place]; 2007.3. Kelby CONCEPCION, John BRAR, Star DELUNA. Use of cyst fluid CEA, CA19-9, and amylase for evaluation of pancreatic lesions. Clinical Biochemistry. 2009;42:5493-8857.This test was developed, and its performance characteristics determined by the [facility] Department of Pathology and Laboratory Medicine. It has not been cleared or approved by the FDA. The [facility] Department of Pathology and Laboratory Medicine is regulated under CLIA as qualified to perform high-complexity testing. This test is used for clinical purposes. It should not be regarded as investigational or for research. Performed By: #### 1 747-5, 1795-4, 29470-4, 2881-1 ####[facility] [id number] [address] [place] [address] [place] Antithrombin Ag actual/philly l IA (PPP) [Relative mass conc]on 11-11-2024 Antithrombin Ag IA Qn (PPP) 32 % Low 80-[address] [facility] Comment on above: Order Comment: Speci men Type: BLOOD SPECIMENOrdering Facility: [facility] Address: [address] [place] [address] Performed By: #### L [id number], HCOAG, 6303-2, 56215-7, 27146-0 ####[facility] [id number] [place] [id number] [place] BODY FLUID CELL COUNTon 11-02 Clarity (Unsp spec) Clear Normal Clear [facility] Comment on above: Order Comment: Speci men Type: FLUID SPECIMENOrdering Facility: [facility] Address: [address] [place] [address] Performed By: #### C CBF, [id number] ####[facility] [id number] [address] [address] [place] Color (Body fld) Colorless Normal Yellow [facility] Comment on above: Order Comment: Speci men Type: FLUID SPECIMENOrdering Facility: [facility] Address: [address] [place] [address] Performed By: #### C CBF, [id number] ####[facility] [id number] [address] [place] [address] [place] RBC Manual cnt (Body fld) [#/Vol] 2000 /uL High <[address] [facility] Comment on above: Order Comment: Speci men Type: FLUID SPECIMENOrdering Facility: [facility] Address: [address] [place] [address] Performed By: #### C CBF, [id number] ####[facility] [id number] [facility] [address] [place] Specimen source Nom (Body fld) Abdomen Normal [facility] Comment on above: Order Comment: Speci men Type: FLUID SPECIMENOrdering Facility: [facility] Address: [address] [place] [address] Performed By: #### C CBF, [id number] ####[facility] [id number] [place] [address] [place] WBC Manual cnt (Body fld) [#/Vol] 70 /uL Normal <[address] [facility] Comment on above: Order Comment: Speci men Type: FLUID SPECIMENOrdering Facility: [facility] Address: [address] [place] [address] Performed By: #### C CBF, [id number] ####[facility] [id number] [facility] [place] [address] [place] Bacteria Bld Culton 11-12-19 25 Bacteria identified Cx Nom (Bld) CULTURE, BLOOD: No growth 5 days GRAM STAIN: This blood culture had less than the recommended 8 ml per bottle, which could decrease the sensitivity of the test. Normal [facility] Comment on above: Performed By: #### 6 00-7 ####[facility] [id number] [facility] [place] [address] [place] Bacteria identified Cx Nom (Bld) CULTURE, BLOOD: No growth 5 days Normal [facility] Comment on above: Performed By: #### 6 00-7 ####[facility] [id number] [facility] [place] [address] [place] Bacteria Fld Culton 11-12-19 25 Bacteria identified Cx Nom (Body fld) CULTURE, BODY FLD: No growth GRAM STAIN: No organisms seen Many Polymorphonuclear leukocytes Gram stain performed on cytospun specimen. Gram stain from primary specimen Normal [facility] Comment on above: Performed By: #### 6 35-3, 611-4 ####[facility] [id number] [address] [address] [place] Bacteria Spec Anaerobe Culto n 11-11-2024 Bacteria identified Anaer cx Nom (Unsp spec) Negative Normal [facility] Comment on above: Performed By: #### 6 35-3, 611-4 ####[facility] [id number] [address] [address] [place] Basic metabolic 2000 panelon 11-11-2024 Anion gap [Moles/Vol] 12 mmol/L Normal 8-15 [facility] Comment on above: Order Comment: Speci men Type: BLOOD SPECIMENOrdering Facility: [facility] Address: [address] [place] [address] Performed By: #### 2 276-4, 37121-7, 41335-0, 51089-8, 2777-1, 77483-3 ####[facility] [id number] [address] [address] [place] Calcium [Mass/Vol] 9.1 mg/dL Normal 8.5-10.2 [facility] Comment on above: Order Comment: Speci men Type: BLOOD SPECIMENOrdering Facility: [facility] Address: [address] [place] [address] Performed By: #### 2 276-4, 44650-5, 31051-0, 01742-8, 2777-1, 71900-7 ####[facility] [id number] [address] [place] [address] [place] Chloride [Moles/Vol] 97 mmol/L Low 98-107 [facility] Comment on above: Order Comment: Speci men Type: BLOOD SPECIMENOrdering Facility: [facility] Address: [address] [place] [address] Performed By: #### 2 276-4, 12698-0, 14010-4, 23618-4, 2777-1, 52204-1 ####[facility] [id number] [place] [id number] [place] CO2 [Moles/Vol] 14 mmol/L Low 22-[address] [facility] Comment on above: Order Comment: Speci men Type: BLOOD SPECIMENOrdering Facility: [facility] Address: [address] [place] [address] Performed By: #### 2 276-4, 65554-3, 06353-3, 79648-6, 2777-1, 15709-0 ####[facility] [id number] [place] [address] [place] Creatinine [Mass/Vol] 1.35 mg/dL High 0.73-1.22 [facility] Comment on above: Order Comment: Speci men Type: BLOOD SPECIMENOrdering Facility: [facility] Address: [address] [place] [address] Performed By: #### 2 276-4, 19759-4, 25234-1, 42771-1, 2777-1, 71902-2 ####[facility] [id number] [place] [id number] [place] Creatinine and Glomerular filtration rate.predicted panel (S/P/Bld) 61 mL/min/1.73m??? Normal >=[address] [facility] Comment on above: Order Comment: Speci men Type: BLOOD SPECIMENOrdering Facility: [facility] Address: [address] [place] [address] Result Comment: Patric mated Glomerular Filtration Rate [...] actual GFR. Performed By: #### 2 276-4, 43329-0, 75466-5, 37036-8, 2776-1, ####[facility] [id number] [address] [address] [place] Glucose [Mass/Vol] 292 mg/dL High 74-99 [facility] Comment on above: Order Comment: Ezekiel ramirez Type: BLOOD SPECIMENOrdering Facility: [facility] Address: [address] [place] [address] Result Comment: The [place] Diabetes Association (ADA) provides guidance for cutoff [...] Standards of Medical Care in Diabetes 2016, [place] [employer]. Diabetes Care. 2016.39(Suppl 1). Performed By: #### 2 276-4, 04423-3, 06281-0, 88363-9, 2776-, ####[facility] [id number] [address] [address] [place] Potassium [Moles/Vol] 3.6 mmol/L Low 3.7-5.1 [facility] Comment on above: Order Comment: Ezekiel ramirez Type: BLOOD SPECIMENOrdering Facility: [facility] Address: [address] [place] [address] Performed By: #### 2 276-4, 59676-8, 10756-4, 31880-6, 2776-, ####[facility] [id number] [address] [address] [place] Sodium [Moles/Vol] 123 mmol/L Low 136-144 [facility] Comment on above: Order Comment: Speci men Type: BLOOD SPECIMENOrdering Facility: [facility] Address: [address] [place] [address] Performed By: #### 2 276-4, 34103-8, 04879-8, 56988-0, 2777-1, ####[facility] [id number] [place] [id number] [place] Urea nitrogen [Mass/Vol] 22 mg/dL Normal 9-[address] [facility] Comment on above: Order Comment: Speci men Type: BLOOD SPECIMENOrdering Facility: [facility] Address: [address] [place] [address] Performed By: #### 2 276-4, 61266-5, 86067-6, 83604-3, 2776-1, ####[facility] [id number] [place] [id number] [place] CARDIOLIPIN IGG ABSon 2024 Cardiolipin IgG IA Qn (S) <9.0 Normal <15.[address] [facility] Comment on above: Order Comment: Speci men Type: BLOOD SPECIMENOrdering Facility: [facility] Address: [address] [place] [address] Result Comment: <15 GPL [id number] GPL Indeterminate>20 GPL PositiveThe following results were obtained with the [employer] QUANTA Lite TEZ IgG III ANDERS. Cardiolipin IgG values obtained with the different manufacturers' assay methods may not be used interchangeably. The magnitude of the reported IgG levels cannot be correlated to an endpoint titer. Performed By: #### 5 076-5KATHI CARDIM ####[facility] [id number] [place] [id number] [place] CARDIOLIPIN IGM ABSon 2024 Cardiolipin IgM IA Qn (S) <9.0 Normal <12.[address] [facility] Comment on above: Order Comment: Speci men Type: BLOOD SPECIMENOrdering Facility: [facility] Address: [address] [place] [address] Result Comment: <12. 5 MPL [id number] MPL Indeterminate>20 MPL PositiveThe following results were obtained with the T[employer] Entertainment[employer] Lite TEZ IgM III ANDERS. Cardiolipin IgM values obtained with the different manufacturers' assay methods may not be used interchangeably. The magnitude of the reported IgM levels cannot be correlated to an endpoint titer.??? Performed By: #### 5 076-5, MELVIN ARMENTA ####[facility] [id number] [address] [place] CASE MANAGEMon 11-11-2024 CASE MANAGEM Normal [facility] CBC W Auto Differential pane l (Bld)on 11-11-2024 Basophils (Bld) [#/Vol] 0.04 10*3/uL Normal <0.[address] [facility] Comment on above: Order Comment: Speci men Type: BLOOD SPECIMENOrdering Facility: [facility] Address: [address] [place] [address] Performed By: #### I PFR, 43057-1, 45444-4 ####[facility] [id number] [place] [address] [place] Basophils/100 WBC (Bld) 0.4 % Normal C [facility] Comment on above: Order Comment: Speci men Type: BLOOD SPECIMENOrdering Facility: [facility] Address: [address] [place] [address] Performed By: #### I PFR, 74184-4, 02258-4 ####[facility] [id number] [place] [id number] [place] Differential cell count method Nom (Bld) Auto Normal [facility] Comment on above: Order Comment: Speci men Type: BLOOD SPECIMENOrdering Facility: [facility] Address: [address] [place] [address] Performed By: #### I PFR, 29200-9, 40913-6 ####[facility] [id number] [place] [address] [place] Eosinophils (Bld) [#/Vol] 0.35 10*3/uL Normal <0.[address] [facility] Comment on above: Order Comment: Speci men Type: BLOOD SPECIMENOrdering Facility: [facility] Address: [address] [place] [address] Performed By: #### I PFR, 41915-2, ####[facility] [id number] [place] [address] [place] Eosinophils/100 WBC (Bld) 3.4 % Normal [facility] Comment on above: Order Comment: Speci men Type: BLOOD SPECIMENOrdering Facility: [facility] Address: [address] [place] [address] Performed By: #### I PFR, 89653-6, 35213-8 ####[facility] [id number] [place] [address] [place] Erythrocyte distribution width (RBC) [Ratio] 17.4 % High 11.5-15.[address] [facility] Comment on above: Order Comment: Speci men Type: BLOOD SPECIMENOrdering Facility: [facility] Address: [address] [place] [address] Performed By: #### I PFR, 29793-4, 88777-4 ####[facility] [id number] [place] [address] [place] Hematocrit (Bld) [Volume fraction] 24.6 % Low 39.0-51.[address] [facility] Comment on above: Order Comment: Speci men Type: BLOOD SPECIMENOrdering Facility: [facility] Address: [address] [place] [address] Performed By: #### I PFR, 80338-8, 29318-2 ####[facility] [id number] [place] [address] [place] Hemoglobin (Bld) [Mass/Vol] 8.4 g/dL Low 13.0-17.[address] [facility] Comment on above: Order Comment: Speci men Type: BLOOD SPECIMENOrdering Facility: [facility] Address: [address] [place] [address] Performed By: #### I PFR, 51850-4, 23170-0 ####[facility] [id number] [place] [address] [place] Immature granulocytes (Bld) [#/Vol] 0.08 10*3/uL Normal <0.[address] [facility] Comment on above: Order Comment: Speci men Type: BLOOD SPECIMENOrdering Facility: [facility] Address: [address] [place] [address] Performed By: #### I PFR, 73196-1, 10028-8 ####[facility] [id number] [place] [address] [place] Immature granulocytes/100 WBC (Bld) 0.8 % Normal [facility] Comment on above: Order Comment: Speci men Type: BLOOD SPECIMENOrdering Facility: [facility] Address: [address] [place] [address] Performed By: #### I PFR, 22178-5, 36276-6 ####[facility] [id number] [place] [address] [place] Lymphocytes (Bld) [#/Vol] 0.99 10*3/uL Low 1.00-4.[address] [facility] Comment on above: Order Comment: Speci men Type: BLOOD SPECIMENOrdering Facility: [facility] Address: [address] [place] [address] Performed By: #### I PFR, 47823-4, ####[facility] [id number] [place] [id number] [place] Lymphocytes/100 WBC (Bld) 9.5 % Normal [facility] Comment on above: Order Comment: Speci men Type: BLOOD SPECIMENOrdering Facility: [facility] Address: [address] [place] [address] Performed By: #### I PFR, 80824-5, ####[facility] [id number] [place] [id number] [place] MCH (RBC) [Entitic mass] 31.9 pg Normal 26.0-34.[address] [facility] Comment on above: Order Comment: Speci men Type: BLOOD SPECIMENOrdering Facility: [facility] Address: [address] [place] [address] Performed By: #### I PFR, 44133-9, ####[facility] [id number] [place] [address] [place] MCHC (RBC) [Mass/Vol] 34.1 g/dL Normal 30.5-36.0 [facility] Comment on above: Order Comment: Speci men Type: BLOOD SPECIMENOrdering Facility: [facility] Address: [address] [place] [address] Performed By: #### I PFR, 50894-0, ####[facility] [id number] [address] [address] [place] MCV (RBC) [Entitic vol] 93.5 fL Normal 80.0-100.0 C [facility] Comment on above: Order Comment: Speci men Type: BLOOD SPECIMENOrdering Facility: [facility] Address: [address] [place] [address] Performed By: #### I PFR, 25256-5, 96964-8 ####[facility] [id number] [address] [place] [address] [place] Monocytes (Bld) [#/Vol] 0.97 10*3/uL High <0.[address] [facility] Comment on above: Order Comment: Speci men Type: BLOOD SPECIMENOrdering Facility: [facility] Address: [address] [place] [address] Performed By: #### I PFR, 37703-1, ####[facility] [id number] [address] [address] [place] Monocytes/100 WBC (Bld) 9.3 % Normal [facility] Comment on above: Order Comment: Speci men Type: BLOOD SPECIMENOrdering Facility: [facility] Address: [address] [place] [address] Performed By: #### I PFR, 39711-8, ####[facility] [id number] [place] [address] [place] Neutrophils (Bld) [#/Vol] 8.00 10*3/uL High 1.45-7.[address] [facility] Comment on above: Order Comment: Speci men Type: BLOOD SPECIMENOrdering Facility: [facility] Address: [address] [place] [address] Performed By: #### I PFR, 36086-9, ####[facility] [id number] [address] [address] [place] Neutrophils/100 WBC (Bld) 76.6 % Normal [facility] Comment on above: Order Comment: Speci men Type: BLOOD SPECIMENOrdering Facility: [facility] Address: [address] [place] [address] Performed By: #### I PFR, 26926-2, 17468-3 ####[facility] [id number] [place] [address] [place] Nucleated RBC (Bld) [#/Vol] 10*3/uL Normal <0.[address] [facility] Comment on above: Order Comment: Speci men Type: BLOOD SPECIMENOrdering Facility: [facility] [facility] Address: [address] [place] [address] Performed By: #### I PFR, 03050-4, 13029-7 ####[facility] [id number] [place] [address] [place] Nucleated RBC/100 WBC (Bld) [Ratio] 0.0 /100 WBC Normal [facility] Comment on above: Order Comment: Speci men Type: BLOOD SPECIMENOrdering Facility: [facility] Address: [address] [place] [address] Performed By: #### I PFR, 70845-9, 65986-8 ####[facility] [id number] [place] [address] [place] Platelet mean volume (Bld) [Entitic vol] 11.5 fL Normal 9.0-12.[address] [facility] Comment on above: Order Comment: Speci men Type: BLOOD SPECIMENOrdering Facility: [facility] Address: [address] [place] [address] Performed By: #### I PFR, 81676-1, 46953-4 ####[facility] [id number] [place] [address] [place] Platelets (Bld) [#/Vol] 43 10*3/uL Low 150-400 [facility] Comment on above: Order Comment: Speci men Type: BLOOD SPECIMENOrdering Facility: [facility] Address: [address] [place] [address] Performed By: #### I PFR, 93022-3, 65206-3 ####[facility] [id number] [place] [address] [place] RBC (Bld) [#/Vol] 2.63 10*6/uL Low 4.20-6.00 [facility] Comment on above: Order Comment: Speci men Type: BLOOD SPECIMENOrdering Facility: [facility] Address: [address] [place] [address] Performed By: #### I PFR, 89490-9, 08019-1 ####[facility] [id number] [place] [address] [place] WBC (Bld) [#/Vol] 10.43 10*3/uL Normal 3.70-11.00 [facility] Comment on above: Order Comment: Speci men Type: BLOOD SPECIMENOrdering Facility: [facility] Address: [address] [place] [address] Performed By: #### I PFR, 64074-1, 56720-1 ####[facility] [id number] [place] [address] [place] Basophils (Bld) [#/Vol] 0.06 10*3/uL Normal <0.[address] [facility] Comment on above: Order Comment: Speci men Type: BLOOD SPECIMENOrdering Facility: [facility] Address: [address] [place] [address] Performed By: #### 5 5454-3, 62654-8 ####[facility] [id number] [place] [address] [place] Basophils/100 WBC (Bld) 0.4 % Normal [facility] Comment on above: Order Comment: Speci men Type: BLOOD SPECIMENOrdering Facility: [facility] Address: [address] [place] [address] Performed By: #### 5 5454-3, 89070-2 ####[facility] [id number] [place] [id number] [place] Differential cell count method Nom (Bld) Auto Normal [facility] Comment on above: Order Comment: Speci men Type: BLOOD SPECIMENOrdering Facility: [facility] Address: [address] [place] [address] Performed By: #### 5 5454-3, 70696-0 ####[facility] [id number] [place] [address] [place] Eosinophils (Bld) [#/Vol] 0.40 10*3/uL Normal <0.[address] [facility] Comment on above: Order Comment: Speci men Type: BLOOD SPECIMENOrdering Facility: [facility] Address: [address] [place] [address] Performed By: #### 5 5454-3, 32342-9 ####[facility] [id number] [place] [address] [place] Eosinophils/100 WBC (Bld) 2.5 % Normal [facility] Comment on above: Order Comment: Speci men Type: BLOOD SPECIMENOrdering Facility: [facility] Address: [address] [place] [address] Performed By: #### 5 5454-3, 40448-0 ####[facility]CL[facility] [id number] [place] [address] [place] Erythrocyte distribution width (RBC) [Ratio] 18.0 % High 11.5-15.[address] [facility] Comment on above: Order Comment: Speci men Type: BLOOD SPECIMENOrdering Facility: [facility] Address: [address] [place] [address] Performed By: #### 5 5454-3, 52178-5 ####[facility] [id number] [place] [address] [place] Hematocrit (Bld) [Volume fraction] 30.4 % Low 39.0-51.[address] [facility] Comment on above: Order Comment: Speci men Type: BLOOD SPECIMENOrdering Facility: [facility] Address: [address] [place] [address] Performed By: #### 5 5454-3, 17643-6 ####[facility] [id number] [place] [address] [place] Hemoglobin (Bld) [Mass/Vol] 10.2 g/dL Low 13.0-17.[address] [facility] Comment on above: Order Comment: Speci men Type: BLOOD SPECIMENOrdering Facility: [facility] Address: [address] [place] [address] Performed By: #### 5 5454-3, 89336-3 ####[facility] LABIA [id number] [place] [address] [place] Immature granulocytes (Bld) [#/Vol] 0.18 10*3/uL High <0.[address] [facility] Comment on above: Order Comment: Speci men Type: BLOOD SPECIMENOrdering Facility: [facility] Address: [address] [place] [address] Performed By: #### 5 5454-3, 00584-5 ####[facility]IA [id number] [place] [address] [place] Immature granulocytes/100 WBC (Bld) 1.1 % Normal [facility] Comment on above: Order Comment: Speci men Type: BLOOD SPECIMENOrdering Facility: [facility] Address: [address] [place] [address] Performed By: #### 5 5454-3, 49424-7 ####[facility] LABIA [id number] [place] [id number] [place] Lymphocytes (Bld) [#/Vol] 1.19 10*3/uL Normal 1.00-4.[address] [facility] Comment on above: Order Comment: Speci men Type: BLOOD SPECIMENOrdering Facility: [facility] Address: [address] [place] [address] Performed By: #### 5 5454-3, 11886-6 ####[facility]IA [id number] [place] [id number] [place] Lymphocytes/100 WBC (Bld) 7.6 % Normal [facility] Comment on above: Order Comment: Speci men Type: BLOOD SPECIMENOrdering Facility: [facility] Address: [address] [place] [address] Performed By: #### 5 5454-3, 64031-9 ####[facility] LABIA [id number] [place] [address] [place] MCH (RBC) [Entitic mass] 31.3 pg Normal 26.0-34.[address] [facility] Comment on above: Order Comment: Speci men Type: BLOOD SPECIMENOrdering Facility: [facility] Address: [address] [place] [address] Performed By: #### 5 5454-3, 00842-5 ####[facility] [id number] [place] [address] [place] MCHC (RBC) [Mass/Vol] 33.6 g/dL Normal 30.5-36.0 [facility] Comment on above: Order Comment: Speci men Type: BLOOD SPECIMENOrdering Facility: [facility] Address: [address] [place] [address] Performed By: #### 5 5454-3, 10209-8 ####[facility] [id number] [place] [address] [place] MCV (RBC) [Entitic vol] 93.3 fL Normal 80.0-100.0 [facility] Comment on above: Order Comment: Speci men Type: BLOOD SPECIMENOrdering Facility: [facility] Address: [address] [place] [address] Performed By: #### 5 5454-3, 48851-7 ####[facility] LABIA [id number] [place] [id number] [place] Monocytes (Bld) [#/Vol] 1.36 10*3/uL High <0.[address] [facility] Comment on above: Order Comment: Speci men Type: BLOOD SPECIMENOrdering Facility: [facility] Address: [address] [place] [address] Performed By: #### 5 5454-3, 83355-3 ####[facility] [id number] [facility] [place] [address] [place] Monocytes/100 WBC (Bld) 8.6 % Normal [facility] Comment on above: Order Comment: Speci men Type: BLOOD SPECIMENOrdering Facility: [facility] Address: [address] [place] [address] Performed By: #### 5 5454-3, 77688-5 ####[facility] [id number] [place] [address] [place] Neutrophils (Bld) [#/Vol] 12.55 10*3/uL High 1.45-7.[address] [facility] Comment on above: Order Comment: Speci men Type: BLOOD SPECIMENOrdering Facility: [facility] Address: [address] [place] [address] Performed By: #### 5 5454-3, 57234-0 ####[facility] [id number] [facility] [address] [place] Neutrophils/100 WBC (Bld) 79.8 % Normal [facility] Comment on above: Order Comment: Speci men Type: BLOOD SPECIMENOrdering Facility: [facility] Address: [address] [place] [address] Performed By: #### 5 5454-3, 16730-0 ####[facility] [id number] [facility] [address] [place] Nucleated RBC (Bld) [#/Vol] 10*3/uL Normal <0.[address] [facility] Comment on above: Order Comment: Speci men Type: BLOOD SPECIMENOrdering Facility: [facility] Address: [address] [place] [address] Performed By: #### 5 5454-3, 21060-0 ####[facility]IA [id number] [place] [address] [place] Nucleated RBC/100 WBC (Bld) [Ratio] 0.0 /100 WBC Normal [facility] Comment on above: Order Comment: Speci men Type: BLOOD SPECIMENOrdering Facility: [facility] Address: [address] [place] [address] Performed By: #### 5 5454-3, 80623-3 ####[facility] [id number] [place] [address] [place] Platelet mean volume (Bld) [Entitic vol] 12.1 fL Normal 9.0-12.[address] [facility] Comment on above: Order Comment: Speci men Type: BLOOD SPECIMENOrdering Facility: [facility] Address: [address] [place] [address] Performed By: #### 5 5454-3, 04703-6 ####[facility] [id number] [place] [address] [place] Platelets (Bld) [#/Vol] 52 10*3/uL Low 150-400 [facility] Comment on above: Order Comment: Speci men Type: BLOOD SPECIMENOrdering Facility: [facility] Address: [address] [place] [address] Result Comment: Resu lts checked and verified.No clot detected. Performed By: #### 5 5454-3, 07300-9 ####[facility] [id number] [place] [address] [place] RBC (Bld) [#/Vol] 3.26 10*6/uL Low 4.20-6.00 [facility] Comment on above: Order Comment: Speci men Type: BLOOD SPECIMENOrdering Facility: [facility] Address: [address] [place] [address] Performed By: #### 5 5454-3, 18917-8 ####[facility]CL[facility] [id number] [place] [id number] [place] WBC (Bld) [#/Vol] 15.74 10*3/uL High 3.70-11.00 [facility] Comment on above: Order Comment: Speci men Type: BLOOD SPECIMENOrdering Facility: [facility] Address: [address] [place] [address] Performed By: #### 5 5454-3, 33619-5 ####[facility] LABIA [id number] [address] [place] CEA SerPl-mCncon 11-11-2024 Carcinoembryonic Ag [Mass/Vol] 13.0 ng/mL High <=2.[address] [facility] Comment on above: Order Comment: Speci men Type: BLOOD SPECIMENOrdering Facility: [facility] Address: [address] [place] [address] Result Comment: Carc inoembryonic antigen test is used as an aid in monitoring response to treatment or recurrence in patients with established colorectal, breast, lung, prostatic, pancreatic, and ovarian carcinomas. Clinical correlation is required.The Carcinoembryonic antigen test was performed using the Fiordaliza Edwards [employer] DXI paramagnetic particle chemiluminescent immunoassay method. Results obtained with different assay methods or kits cannot be used interchangeably. Performed By: #### 2 039-6, 91824-5, 2532-0 ####[facility] LABIA [id number] [place] [id number] [place] COAG CORE PANEL BLDon 2024 aPTT Coag (PPP) [Time] 41.3 s High 23.0-32.4 [facility] Comment on above: Order Comment: Speci men Type: BLOOD SPECIMENOrdering Facility: [facility] Address: [address] [place] [address] Performed By: #### C ORPNL ####[facility] [id number] [place] [address] [place] Fibrinogen Coag (PPP) [Mass/Vol] 88 mg/dL Low 200-[address] [facility] Comment on above: Order Comment: Speci men Type: BLOOD SPECIMENOrdering Facility: [facility] Address: [address] [place] [address] Result Comment: Samp le checked for clot.Result rechecked. Performed By: #### C ORPNL ####[facility]CL[facility] [id number] [place] [address] [place] INR Coag (PPP) [Relative time] 2.1 {INR} High 0.9-1.[address] [facility] Comment on above: Order Comment: Speci men Type: BLOOD SPECIMENOrdering Facility: [facility] Address: [address] [place] [address] Result Comment: Sarah min K Antagonist (VKA) Therapeutic Range: INR 2 to 3 (Target INR of 2.5)Note: For patients treated with VKA drugs, such as warfarin, the [place] [employer] 2012 Guideline recommends [...] al. Chest 2012, 141:7S-47SNishimura RA, et al. [facility] 2017, 70: 252-289 Performed By: #### C ORPNL ####[facility]IA [id number] [place] [address] [place] PT Coag (PPP) [Time] 21.8 s High 9.7-13.0 [facility] Comment on above: Order Comment: Speci men Type: BLOOD SPECIMENOrdering Facility: [facility] Address: [address] [place] [address] Performed By: #### C ORPNL ####[facility] [id number] [place] [address] [place] CONSULTon 11-11-2024 CONSULT Normal [facility] CONSULT Normal [facility] CRP SerPl-mCncon 11-11-2024 CRP [Mass/Vol] 0.5 mg/dL Normal <0.[address] [facility] Comment on above: Order Comment: Speci men Type: BLOOD SPECIMENOrdering Facility: [facility] Address: [address] [place] [address] Performed By: #### D ASHLEY, 1986-12 ####[facility] [id number] [place] [address] [place] CYTOLOGY NON-GYNon AP DISCLAIMER Normal [facility] Comment on above: Order Comment: Speci men Type: FLUID SPECIMENOrdering Facility: [facility] Address: [address] [place] [address] Result Comment: Shellie pugh Developed Test (LDT) Disclaimer:Performance characteristics of immunohistochemical, immunofluorescent, and chromogenic in-situ hybridization tests have been determined by the performing laboratory within [facility]'s Thai [facility] ([facility], [facility], [facility], [facility], [facility], [facility], or [facility]) in a manner consistent with CLIA requirements. One or more of these tests may not have been cleared or approved by the FDA. RT[facility] is regulated under CLIA as qualified to perform high-complexity testing. These tests are used for clinical purposes. These should not be regarded as investigational or for research. Positive and negative controls stain appropriately. Performed By: #### C YTONON ####[facility] [id number] [place] [address] [place] CASE REPORT Normal [facility] Comment on above: Order Comment: Speci men Type: FLUID SPECIMENOrdering Facility: [facility] Address: [address] [place] [address] Result Comment: [facility] Cytology Report Case: [id number] Provider: Yaritza Juarez, Collected: 11/11/2024 05:14 PM SQL ARCHITECT.CNPOrdering Location: [place] [address] Received: 11/11/2024 08:30 PMPathologist: Sameer Fournier MDSpecimen: Abdomen Performed By: #### C YTONON ####[facility]CL[facility] [id number] [place] [address] [place] CLINICAL HISTORY paracentesis fluid Normal [facility] Comment on above: Order Comment: Speci men Type: FLUID SPECIMENOrdering Facility: [facility] Address: [address] [place] [address] Performed By: #### C YTONON ####[facility] [id number] [address] OF [facility] FINAL DIAGNOSIS Normal [facility] Comment on above: Order Comment: Speci men Type: FLUID SPECIMENOrdering Facility: [facility] Address: [address] [place] [address] Result Comment: A - Abdomen, Fluid Negative for malignant cells.The following cell blocks were associated with this case:A1\X09\Cell Block, Alcohol Fixed\X09\ at 1034 EDT Performed By: #### C YTONON ####[facility] [id number] [address] [place] FINAL PERFORMING LAB Normal [facility] Comment on above: Order Comment: Speci men Type: FLUID SPECIMENOrdering Facility: [facility] Address: [address] [place] [address] Result Comment: Tech nical component, hand wood sander screening performed at: [facility], [address] [place] [address] CLIA: [id number] interpretation performed at: [facility], [address] [place] [address] CLIA# [id number] Director: Titi Voss MD Performed By: #### C YTONON ####[facility] [id number] [place] [address] [place] GROSS DESCRIPTION A. Abdomen Normal [facility] Comment on above: Order Comment: Speci men Type: FLUID SPECIMENOrdering Facility: [facility] Address: [address] [place] [address] Result Comment: 1450 cc opaque lexis fluid . ThinPrep and Cell Block prepared. Performed By: #### C YTONON ####[facility] [id number] [place] [address] [place] Cancer Ag19-9 SerPl-aCncon 0 11-11-2024 Cancer Ag 19-9 Qn <2.0 Normal <36.0 [facility] Comment on above: Order Comment: Speci men Type: BLOOD SPECIMENOrdering Facility: [facility] Address: [address] [place] [address] Result Comment: [facility] er antigen 19-9 test is used as an aid in monitoring response to treatment or recurrence in patients with established pancreatic, hepatobiliary, or gastrointestinal malignancies. Clinical correlation is required.The CA 19-9 Antigen test was performed using the Fiordaliza Sheri Unicel DXI paramagnetic particle chemiluminescent immunoassay method. Results obtained with different assay methods or kits cannot be used interchangeably. Performed By: #### 2 039-6, 59380-4, 2532-0 ####[facility] [id number] [place] [address] [place] Cardiolipin IgA Ser IA-aCnco n 11-11-2024 Cardiolipin IgA IA Qn (S) 9.7 [APL'U] Normal <12.[address] [facility] Comment on above: Order Comment: Ezekiel ramirez Type: BLOOD SPECIMENOrdering Facility: [facility] Address: [address] [place] [address] Result Comment: <12 APL [id number] APL Indeterminate>20 APL PositiveThe following results were obtained with the Trendy EntertainmentA Lite TEZ IgA III ANDERS. Cardiolipin IgA values obtained with the different manufacturers' assay methods may not be used interchangeably. The magnitude of the reported IgA levels cannot be correlated to an endpoint titer. Performed By: #### 5 076-5, MELVIN ARMENTA ####[facility] [id number] [place] [address] [place] DIRECT BILIRUBIN BLOODon Bilirubin.conjugated [Mass/Vol] 1.1 mg/dL High <0.[address] [facility] Comment on above: Order Comment: Ezekiel ramirez Type: BLOOD SPECIMENOrdering Facility: [facility] Address: [address] [place] [address] Performed By: #### D ASHLEY, 1986-12 ####[facility] [id number] [place] [address] [place] ECG COMPLETEon 11-11-2024 ECG COMPLETE Normal [facility] [id number] 11-11-2024 ECG[address] [facility] Ferritin SerPl-mCncon 2024 Ferritin [Mass/Vol] 82.4 ng/mL Normal 30.3-565.7 [facility] Comment on above: Order Comment: Ezekiel ramirez Type: BLOOD SPECIMENOrdering Facility: [facility] Address: [address] [place] [address] Performed By: #### 2 276-4, 73246-9, 46105-3, 35673-2, 2777-1, 84815-4 ####[facility] [id number] [place] [id number] [place] Fibrinogen PPP-mCncon 2024 Fibrinogen Coag (PPP) [Mass/Vol] 90 mg/dL Low 200-[address] [facility] Comment on above: Order Comment: Speci men Type: BLOOD SPECIMENOrdering Facility: [facility] Address: [address] [place] [address] Result Comment: Sammichael le checked for clot.Result rechecked. Performed By: #### 3 255-7, 72543-8 ####[facility] LABIA [id number] [place] [address] [place] HISTORY PHYSICALon HISTORY PHYSICAL Normal [facility] HYPERCOAG PANELon 11-11-2024 Activated protein C resistance Coag (PPP) [Time ratio] 2.10 Ratio Normal >1.[address] [facility] Comment on above: Order Comment: Speci men Type: BLOOD SPECIMENOrdering Facility: [facility] Address: [address] [place] [address] Performed By: #### L [id number], HCOAG, 6303-2, 18914-4, 42146-5 ####[facility]IA [id number] [place] [address] [place] Antithrombin actual/normal Chromogenic method (PPP) [Rel catalytic activity/Vol] 30 % Low 84-[address] [facility] Comment on above: Order Comment: Speci men Type: BLOOD SPECIMENOrdering Facility: [facility] Address: [address] [place] [address] Performed By: #### L [id number], HCOAG, 6303-2, 03805-2, 95378-7 ####[facility] LABIA [id number] [place] [address] [place] aPTT Coag (Bld) [Time] 47.9 s High 24.0-35.1 [facility] Comment on above: Order Comment: Speci men Type: BLOOD SPECIMENOrdering Facility: [facility] Address: [address] [place] [address] Performed By: #### L [id number], HCOAG, 6303-2, 71009-0, 55062-3 ####[facility] [id number] [place] [id number] [place] aPTT W excess hexagonal phase phospholipid Coag (PPP) [Time] 36.5 seconds Normal 34.0-51.[address] [facility] Comment on above: Order Comment: Speci men Type: BLOOD SPECIMENOrdering Facility: [facility] Address: [address] [place] [address] Performed By: #### L [id number], HCOAG, 6303-2, 60070-8, 21834-3 ####[facility] [id number] [place] [address] [place] aPTT-LA w 1:1 PNP Coag (PPP) [Time] 32.5 seconds Normal <33.[address] [facility] Comment on above: Order Comment: Speci men Type: BLOOD SPECIMENOrdering Facility: [facility] Address: [address] [place] [address] Result Comment: This test was developed, and its performance characteristics determined by the [facility] Department of Pathology and Laboratory Medicine. It has not been cleared or approved by the FDA. The [facility] Department of Pathology and Laboratory Medicine is regulated under CLIA as qualified to perform high-complexity testing. This test is used for clinical purposes. It should not be regarded as investigational or for research. Performed By: #### L [id number], HCOAG, 6303-2, 54542-1, 13590-9 ####[facility] [id number] [place] [id number] [place] Coagulation factor VIII activity actual/normal Coag (PPP) [Relative time] 332 % High 50-[address] [facility] Comment on above: Order Comment: Speci men Type: BLOOD SPECIMENOrdering Facility: [facility] Address: [address] [place] [address] Performed By: #### L [id number], HCOAG, 6303-2, 22378-5, 18971-3 ####[facility] [id number] [place] [address] [place] Coagulation factor X activated act Coag Qn (PPP) <0.10 Normal <0.[address] [facility] Comment on above: Order Comment: Speci men Type: BLOOD SPECIMENOrdering Facility: [facility] Address: [address] [place] [address] Result Comment: This test was developed, and its performance characteristics determined by the [facility] Department of Pathology and Laboratory Medicine. It has not been cleared or approved by the FDA. The [facility] Department of Pathology and Laboratory Medicine is regulated under CLIA as qualified to perform high-complexity testing. This test is used for clinical purposes. It should not be regarded as investigational or for research. Performed By: #### L [id number], HCOAG, 6303-2, 68689-6, 49979-1 ####[facility] [id number] [place] [address] [place] Delta dRVVT Coag (PPP) [Time diff] 2.2 delta seconds Normal <7.[address] [facility] Comment on above: Order Comment: Speci men Type: BLOOD SPECIMENOrdering Facility: [facility] Address: [address] [place] [address] Performed By: #### L [id number], HCOAG, 6303-2, 98506-1, 51381-0 ####[facility] [id number] [place] [address] [place] dRVVT W excess hexagonal phase phospholipid actual/normal Coag (PPP) [Relative time] 34.3 seconds Normal 34.2-47.[address] [facility] Comment on above: Order Comment: Speci men Type: BLOOD SPECIMENOrdering Facility: [facility] Address: [address] [place] [address] Performed By: #### L [id number], HCOAG, 6303-2, 87589-7, 04282-1 ####[facility] [id number] [address] [address] [place] Protein C actual/normal Coag (PPP) [Relative time] 24 % Low 76-[address] [facility] Comment on above: Order Comment: Speci men Type: BLOOD SPECIMENOrdering Facility: [facility] Address: [address] [place] [address] Performed By: #### L [id number], HCOAG, 6303-2, 95823-3, 95324-1 ####[facility] [id number] [place] [id number] [place] Protein S actual/normal Coag (PPP) [Relative time] 28 % Low 59-[address] [facility] Comment on above: Order Comment: Speci men Type: BLOOD SPECIMENOrdering Facility: [facility] Address: [address] [place] [address] Performed By: #### L [id number], HCOAG, 6303-2, 91767-4, 63863-8 ####[facility] [id number] [place] [address] [place] Protein S Free Ag actual/normal IA (PPP) [Relative mass conc] 45 % Low 55-[address] [facility] Comment on above: Order Comment: Speci men Type: BLOOD SPECIMENOrdering Facility: [facility] Address: [address] [place] [address] Performed By: #### L [id number], HCOAG, 6303-2, 44781-2, 25909-3 ####[facility] [id number] [place] [id number] [place] Thrombin time Coag (PPP) [Time] 20.0 seconds High <18.[address] [facility] Comment on above: Order Comment: Speci men Type: BLOOD SPECIMENOrdering Facility: [facility] Address: [address] [place] [address] Performed By: #### L [id number], HCOAG, 6303-2, 63342-7, 08124-2 ####[facility] LABCLIA [id number] [facility]Jaz[place] [address] [place] HYPERCOAG PANEL INTERPon INTERPRETATION (HYPERCOAG) Normal [facility] Comment on above: Order Comment: Speci men Type: BLOOD SPECIMENOrdering Facility: [facility] Address: [address] [place] [address] Result Comment: Abno rmal - see comment [...] thrombin inhibitors, or heparin). Thromb. Haemost. 74:1185 (1994).ANTIPHOSPHOLIPID ANTIBODY STUDIES:The IgG, IgM and IgA anticardiolipin [...] negative for the c.*97G>A variant (legacy name 42799O>A) in the 3' untranslated region of the [...] phase phospholipid neutralization. Performed By: #### L [id number], HCOAG, 6303-2, 44129-4, ####[facility]PITALIA [id number] [place] [address] [place] Pathologist name Reviewed by Julia Howell M.D., Ph.D [facility] Comment on above: Order Comment: Speci men Type: BLOOD SPECIMENOrdering Facility: [facility] Address: [address] [place] [address] Performed By: #### L [id number], HCOAG, 6303-2, 97935-3, ####[facility] [id number] [place] [address] [place] Haptoglob SerPl-mCncon 11-11 Haptoglobin [Mass/Vol] 15 mg/dL Low 31-238 [facility] Comment on above: Order Comment: Ezekiel ramirez Type: BLOOD SPECIMENOrdering Facility: [facility] Address: [address] [place] [address] Performed By: #### 2 4362-6, 4542-7 ####[facility] LABCLIA [id number] [facility] [place] [id number] [place] HbA1c (Bld)on 11-11-2024 Average glucose Estimated from glycated hemoglobin (Bld) [Mass/Vol] 154 mg/dL Normal [facility] Comment on above: Order Comment: Ezekiel [facility] Type: BLOOD SPECIMENOrdering Facility: [facility] Address: [address] [place] [address] Result Comment: eAG: (Estimated average glucose) is a calculated value from HgbA1c and is termite control representative of the average blood glucose level in the last 2-3 month period. Performed By: #### 5 5454-3, 52836-1 ####[facility] [id number] [address] [address] [place] HbA1c (Bld) [Mass fraction] 7.0 % High 4.3-5.[address] [facility] Comment on above: Order Comment: Ezekiel ramirez Type: BLOOD SPECIMENOrdering Facility: [facility] Address: [address] [place] [address] Result Comment: Amer ican Diabetes Association guidelines indicate that patients with HgbA1c in the range 5.7-6.4% are at increased risk for development of diabetes, and intervention by lifestyle modification may be beneficial. HgbA1c greater or equal to 6.5% is considered diagnostic of diabetes. Performed By: #### 5 5454-3, 26285-7 ####[facility] [id number] [address] [address] [place] Hepatic function 2000 panelo n 11-11-2024 Albumin [Mass/Vol] 2.1 g/dL Low 3.9-4.9 [facility] Comment on above: Order Comment: Speci men Type: BLOOD SPECIMENOrdering Facility: [facility] Address: [address] [place] [address] Performed By: #### 2 276-4, 68570-8, 49522-5, 52130-4, 7-1, ####[facility] LABCLIA [id number] [facility] [address] [address] [place] ALP [Catalytic activity/Vol] 310 U/L High 38-[address] [facility] Comment on above: Order Comment: Speci men Type: BLOOD SPECIMENOrdering Facility: [facility] Address: [address] [place] [address] Performed By: #### 2 276-4, 63946-8, 21849-6, 55173-9, 2776-1, ####[facility] LABCLIA [id number] [facility] [place] [id number] [place] ALT [Catalytic activity/Vol] 31 U/L Normal 10-[address] [facility] Comment on above: Order Comment: Speci men Type: BLOOD SPECIMENOrdering Facility: [facility] Address: [address] [place] [address] Performed By: #### 2 276-4, 93383-7, 23829-1, 51140-6, 2776-1, ####[facility] LABCLIA [id number] [facility]D [facility] CENTERK [address] [place] [address] [place] AST [Catalytic activity/Vol] 44 U/L High 14-[address] [facility] Comment on above: Order Comment: Speci men Type: BLOOD SPECIMENOrdering Facility: [facility] Address: [address] [place] [address] Performed By: #### 2 276-4, 79770-2, 19304-7, 54634-1, 7-1, ####[facility] LABCLIA [id number] [facility]ALK [address] [address] [place] Bilirubin [Mass/Vol] 1.6 mg/dL High 0.2-1.3 [facility] Comment on above: Order Comment: Speci men Type: BLOOD SPECIMENOrdering Facility: [facility] Address: [address] [place] [address] Performed By: #### 2 276-4, 97570-4, 19118-3, 35734-9, 7-1, 02149-7 ####[facility] [id number] [place] [address] [place] Bilirubin.conjugated [Mass/Vol] 1.0 mg/dL High <0.[address] [facility] Comment on above: Order Comment: Speci men Type: BLOOD SPECIMENOrdering Facility: [facility] Address: [address] [place] [address] Performed By: #### 2 276-4, 45444-8, 15214-3, 06616-4, 2776-1, ####[facility] H[facility]PITALIA [id number] [place] [address] [place] Protein [Mass/Vol] 5.3 g/dL Low 6.3-8.0 [facility] Comment on above: Order Comment: Speci men Type: BLOOD SPECIMENOrdering Facility: [facility] Address: [address] [place] [address] Performed By: #### 2 276-4, 38551-7, 31729-6, 38742-3, 2776-1, 02541-9 ####[facility] LABNORTHE[facility] [id number] [place] [address] [place] IMMATURE PLATELET FRACTIONon 11-11-2024 Platelets reticulated/100 platelets Auto (Bld) 7.7 % High 0.9-7.[address] [facility] Comment on above: Order Comment: Speci men Type: BLOOD SPECIMENOrdering Facility: [facility] Address: [address] [place] [address] Performed By: #### I PFR, 01137-0, 77379-6 ####[facility] LABCLIA [id number] [address] [address] [place] Iron and Iron binding capaci ty panelon 11-11-2024 Iron [Mass/Vol] 34 ug/dL Low 41-[address] [facility] Comment on above: Order Comment: Speci men Type: BLOOD SPECIMENOrdering Facility: [facility] Address: [address] [place] [address] Performed By: #### 2 276-4, 24494-7, 06144-5, 78557-5, 2777-1, 51551-8 ####[facility] LABCLIA [id number] [place] [address] [place] Iron binding capacity [Mass/Vol] 180 ug/dL Low 232-[address] [facility] Comment on above: Order Comment: Speci men Type: BLOOD SPECIMENOrdering Facility: [facility] Address: [address] [place] [address] Performed By: #### 2 276-4, 01049-6, 60305-4, 29916-0, 2777-1, 23803-0 ####[facility] [id number] [place] [address] [place] Iron/TIBC [Molar ratio] 18.9 % Normal 15.0-57.0 C [facility] Comment on above: Order Comment: Speci men Type: BLOOD SPECIMENOrdering Facility: [facility] Address: [address] [place] [address] Performed By: #### 2 276-4, 77275-8, 53941-7, 96204-2, 2777-1, 64098-4 ####[facility] [id number] [place] [id number] [place] LDH SerPl-cCncon 11-11-2024 LDH [Catalytic activity/Vol] 321 U/L High 135-[address] [facility] Comment on above: Order Comment: Speci men Type: BLOOD SPECIMENOrdering Facility: [facility] Address: [address] [place] [address] Performed By: #### 2 039-6, 80355-0, 2532-0 ####[facility] [id number] [place] [address] [place] Lipase Fld-cCncon 11-11-2024 Lipase (Body fld) [Catalytic activity/Vol] 29 U/L Normal See Comment [facility] Comment on above: Order Comment: Speci men Type: FLUID SPECIMENOrdering Facility: [facility] Address: [address] [place] [address] Result Comment: Pleu ral fluids: Lipase measurement [...] document C49A. PAULETTE Diaz: Clinical Laboratory Standards [place]: 2007.2. David Guillory. A review of pancreatic cyst fluid analysis in the differential diagnosis of pancreatic cyst lesions. [facility] [employer] 2013:0:1-16. Performed By: #### 1 747-5, 1795-4, 83510-3, 2881-1 ####[facility]ITAL[facility] [id number] [place] [id number] [place] Lupus anticoagulant neutrali zation platelet Coag Ql (PPP)on 11-11-2024 aPTT Coag (Bld) [Time] 56.8 s High 30.2-43.0 Cl [facility] Comment on above: Order Comment: Meggani men Type: BLOOD SPECIMENOrdering Facility: [facility] Address: [address] [place] [address] Result Comment: This test was developed, and its performance characteristics determined by the [facility] Department of Pathology and Laboratory Medicine. It has not been cleared or approved by the FDA. The [facility] of Pathology and Laboratory Medicine is regulated under CLIA as qualified to perform high-complexity testing. This test is used for clinical purposes. It should not be regarded as investigational or for research. Performed By: #### L [id number], HCOAG, 6303-2, 18967-1, 16493-9 ####[facility] LABCLIA [id number] [address] [address] [place] aPTT Coag (Bld) [Time] 36.5 s Normal 31.5-38.3 [facility] Comment on above: Order Comment: Speci men Type: BLOOD SPECIMENOrdering Facility: [facility] Address: [address] [place] [address] Result Comment: This test was developed, and its performance characteristics determined by the [facility] Department of Pathology and Laboratory Medicine. It has not been cleared or approved by the FDA. The [facility] Pathology and Laboratory [facility] is regulated under CLIA as qualified to perform high-complexity testing. This test is used for clinical purposes. It should not be regarded as investigational or for research. Performed By: #### L [id number], HCOAG, 6303-2, 04516-1, 53678-7 ####[facility] [id number] [address] [address] [place] PLATELET NEUT 0.0 Seconds Normal <1.[address] [facility] Comment on above: Order Comment: Spechelder ramirez Type: BLOOD SPECIMENOrdering Facility: [facility] Address: [address] [place] [address] Result Comment: This test was developed, and its performance characteristics determined by the [facility] Department of Pathology and Laboratory Medicine. It has not been cleared or approved by the FDA. The [facility] of Pathology and Laboratory Medicine is regulated under CLIA as qualified to perform high-complexity testing. This test is used for clinical purposes. It should not be regarded as investigational or for research. Performed By: #### L [id number], HCOAG, 6303-2, 78501-8, 84858-2 ####[facility] LABCLIA [id number] [id number], [place] [address] [place] MANUAL DIFFERENTIAL, BODY FL UIDon 11-11-2024 DIF TTL, BODY FLUID 100 cells counted Normal [facility] Comment on above: Order Comment: Speci men Type: FLUID SPECIMENOrdering Facility: [facility] Address: [address] [place] [address] Performed By: #### C CBF, [id number] ####[facility] LABCLIA [id number] [facility]ENTERLID [facility] MEDICAL CENTERK [id number], [place] [address] [place] LYMPH%, BF 37 % High 18-[address] [facility] Comment on above: Order Comment: Speci men Type: FLUID SPECIMENOrdering Facility: [facility] Address: [address] [place] [address] Performed By: #### C CBF, [id number] ####[facility] LABCLIA [id number] [facility] [address] [place] [address] [place] MACRO%, BF 21 % Low 64-[address] [facility] Comment on above: Order Comment: Speci men Type: FLUID SPECIMENOrdering Facility: [facility] Address: [address] [place] [address] Performed By: #### C CBF, [id number] ####[facility] LABCLIA [id number] [facility] [place] [id number], [place] [address] [place] MESO %, BF 12 % High 0-[address] [facility] Comment on above: Order Comment: Speci men Type: FLUID SPECIMENOrdering Facility: [facility] Address: [address] [place] [address] Performed By: #### C CBF, [id number] ####[facility] LABCLIA [id number] [facility] [id number], [place] [address] [place] NEUT%, BF 26 % High 0-[address] [facility] Comment on above: Order Comment: Speci men Type: FLUID SPECIMENOrdering Facility: [facility] Address: [address] [place] [address] Performed By: #### C CBF, [id number] ####[facility] LABCLIA [id number] [place] [address] [place] REAC LYMPH %, BF 4 % Normal [facility] Comment on above: Order Comment: Speci men Type: FLUID SPECIMENOrdering Facility: [facility] Address: [address] [place] [address] Performed By: #### C CBF, [id number] ####[facility] LABCLIA [id number] [place] [address] [place] MEDICAL EMERon 11-11-2024 MEDICAL KRISTINA Normal [facility] MEDICAL KRISTINA Normal [facility] Magnesium SerPl-mCncon 11-11 Magnesium [Mass/Vol] 2.3 mg/dL Normal 1.7-2.3 [facility] Comment on above: Order Comment: Speci men Type: BLOOD SPECIMENOrdering Facility: [facility] Address: [address] [place] [address] Performed By: #### 2 276-4, 16127-9, 85815-4, 18589-4, 2777-1, 44755-0 ####[facility] LABCLIA [id number] [place] [address] [place] NURSING PROGon 11-11-2024 NURSING PROG Normal [facility] PLT DEP.AB, UNF. HEPARINon 0 11-11-2024 % REL HIGH DOSE HEP PORCINE 0 % Normal [facility] Comment on above: Order Comment: Speci men Type: BLOOD SPECIMENOrdering Facility: [facility] Address: [address] [place] [address] Performed By: #### S ERORE ####[facility] [id number] [place] [address] % REL LOW DOSE HEP PORCINE 0 % Normal [facility] Comment on above: Order Comment: Speci men Type: BLOOD SPECIMENOrdering Facility: [facility] Address: [address] [place] [address] Performed By: #### S ERORE ####[facility] LABORATORIESCLIA [id number] [place] [address] SEROTONIN REL INTERP See Note Normal [facility] Comment on above: Order Comment: Speci men Type: BLOOD SPECIMENOrdering Facility: [facility] Address: [address] [place] [address] Result Comment: This patient's specimen demonstrates a [...] Additionalinformation regarding diagnosis of HIT is available [facility]INTERPRETIVE INFORMATION: ABRAHAM, Unfractionated HeparinThis test was developed and its performance characteristicsdetermined by [facility]. It has not been cleared orapproved by the [place] Food and Drug Administration. This test wasperformed in a CLIA certified laboratory and is intended forclinical purposes.Performed By: [facility] [place], [place] [id number] Director: Lizandro Ordonez MD, PhDCLIA Number: [id number] Performed By: #### S ERORE ####[facility] LABORATORIESCLIA [id number] [place] [address] ABRAHAM, UNFRACTIONATED HEPARIN Negative Normal Negative [facility] Comment on above: Order Comment: Speci men Type: BLOOD SPECIMENOrdering Facility: [facility] Address: [address] [place] [address] Performed By: #### S ERORE ####[facility] LABORATORIESCLIA [id number] [place] [address] PROTHROMBIN GENE PCRon 11-11 PROTHROMBIN GENE MUTATION Normal [facility] Comment on above: Order Comment: Speci men Type: BLOOD SPECIMENOrdering Facility: [facility] Address: [address] [place] [address] Result Comment: Prot hrombin Gene MutationLaboratory Accession Number: [id number]:NORMALInterpretation:The DNA sample is negative for the c.*97G>A variant (legacy zsrz37233F>A) in the 3' untranslated region of the Factor II (F2) gene.This result is not associated with an increased risk of thromboembolicdisease. Thromboembolic disease is a multifactorial disorder and othercauses are not excluded by this result.Methodology:Isolated Genomic DNA from the patient's blood specimen is evaluatedfor the c*97G>A ([id number]) variant of the F2 gene [RefSeqNM_000506.53;GRCh38/hg38] by multiplex polymerase chain reaction (PCR)followed by melting curve analysis.Limitations:This assay is designed to detect the c.*97G>A (78890Y>A) variant inthe F2 gene. Uncommon variants or single nucleotide polymorphisms mayaffect binding of probes and may rarely result in false negative,false positive or indeterminate results. This assay does not detectother disease-associated rare variants in F2 or other causes ofthromboembolic disease.Disclaimer:This test was developed and its performance characteristics determinedby [facility]. Ithas not been cleared or approved by the FDA. [facility] is regulated under CLIAas certified to perform high-complexity testing. This test is used forclinical purposes. It should not be regarded as investigational or forresearch.Test performed at [facility], [address] [place], [id number]. CLIA Number: [id number]:1) Inheritied Thrombophilias in . ACOG Practice Bulletin. No.197. [place] [employer]. ObseteGynecol 2018;132:e18-34.2) Elfego SR, Kinsey FR, Jeremy PH, and Bernice RIVERA. A commongenetic variation in the 3'-untranslated region of the prothrombingene is associated with elevated plasma prothrombin levels and anincrease in venous thrombosis. Blood 88:3698-703, 1995.3) Rica Maier, Justus Alexander, Nayan Guillory, Emily Carmona. [id number]>T: 16 new cases, association with the 06727U>G polymorphism,and literature review. J Thromb Haemost. 2009;9:1585-7.Interpretation performed at remote location (R0A1) by Fifi España MD Performed By: #### P TGEN ####CLARITY ILLUMINA LIMSCLIA [id number] [address] [place] PT panel Coag (PPP)on 2024 INR Coag (PPP) [Relative time] 2.3 {INR} High 0.9-1.[address] [facility] Comment on above: Order Comment: Speci men Type: BLOOD SPECIMENOrdering Facility: [facility] Address: [address] [place] [address] Result Comment: Sarah min K Antagonist (VKA) Therapeutic Range: INR 2 to 3 (Target INR of 2.5)Note: For patients treated with VKA drugs, such as warfarin, the [place] [employer] 2012 Guideline recommends [...] al. Chest 2012, 141:7S-47SNishimura RA, et al. JAC 2017, 70: 252-289 Performed By: #### P [facility], 613[address]-3 ####[facility] LABCLIA [id number] [address] [place] PT Coag (PPP) [Time] 23.1 s High 9.7-13.0 [facility] Comment on above: Order Comment: Speci men Type: BLOOD SPECIMENOrdering Facility: [facility] Address: [address] [place] [address] Performed By: #### P [facility], [address]59-4 ####[facility] LABCLIA [id number] [place] [address] [place] INR Coag (PPP) [Relative time] 2.1 {INR} High 0.9-1.[address] [facility] Comment on above: Order Comment: Speci men Type: BLOOD SPECIMENOrdering Facility: [facility] Address: [address] [place] [address] Result Comment: Sarah min K Antagonist (VKA) Therapeutic Range: INR 2 to 3 (Target INR of 2.5)Note: For patients treated with VKA drugs, such as warfarin, the [place] [employer] 2012 Guideline recommends [...] of 3).Tammi GH, et al. Chest 2012, 141:7S-47SNishhairura RA, et al. [facility] 2017, 70: 252-289 Performed By: #### 3 4528-0 ####[facility] LABIA [id number] [place] [id number] [place] PT Coag (PPP) [Time] 22.0 s High 9.7-13.0 [facility] Comment on above: Order Comment: Megganhelder ramirez Type: BLOOD SPECIMENOrdering Facility: [facility] Address: [address] [place] [address] Performed By: #### 3 4528-0 ####[facility] LABCLIA [id number] [place] [address] [place] PTT, ANTICOAGULANT THERAPYon 11-11-2024 aPTT Coag (PPP) [Time] EXTREMELY ABNORMA L RESULT. No clot detected at 320 seconds. Refer to anticoagulation nomogram for further actions. Critically abnormal (none) [facility] Comment on above: Order Comment: Speci james Type: BLOOD SPECIMENOrdering Facility: [facility] Address: [address] [place] [address] Result Comment: Resu lt rechecked.Sample checked for clot. Performed By: #### P [facility], 90449-4 ####[facility] LABCLIA [id number] [place] [address] [place] Phosphate SerPl-nc 11-11 Phosphate [Mass/Vol] 2.6 mg/dL Low 2.7-4.8 [facility] Comment on above: Order Comment: Speci men Type: BLOOD SPECIMENOrdering Facility: [facility] Address: [address] [place] [address] Performed By: #### 2 276-4, 07226-4, 43066-3, 63451-3, 2777-1, 76308-3 ####[facility] LABCLIA [id number] [place] [address] [place] Prot Fld-ncon 11-11-2024 Protein (Body fld) [Mass/Vol] 0.2 g/dL Normal See Comment [facility] Comment on above: Order Comment: Ezekiel ramirez Type: FLUID SPECIMENOrdering Facility: [facility] Address: [address] [place] [address] Result Comment: Sero us fluids: Effusions are [...] document C49A. PAULETTE Diaz: Clinical Laboratory Standards [place]: 2007. Performed By: #### 1 747-5, 1795-4, 97735-4, 2881-1 ####[facility] LABCLIA [id number] [facility] [address] [address] [place] Renal function 2000 panelon 11-11-2024 Albumin [Mass/Vol] 2.4 g/dL Low 3.9-4.9 [facility] Comment on above: Order Comment: Speci men Type: BLOOD SPECIMENOrdering Facility: [facility] Address: [address] [place] [address] Performed By: #### 2 4362-6, 4541-7 ####[facility] LABCLIA [id number] [place] [id number] [place] Anion gap [Moles/Vol] 10 mmol/L Normal 8-15 [facility] Comment on above: Order Comment: Speci men Type: BLOOD SPECIMENOrdering Facility: [facility] Address: [address] [place] [address] Performed By: #### 2 4362-6, 4541-7 ####[facility] LABCLIA [id number] [address] [address] [place] Calcium [Mass/Vol] 9.3 mg/dL Normal 8.5-10.2 [facility] Comment on above: Order Comment: Speci men Type: BLOOD SPECIMENOrdering Facility: [facility] Address: [address] [place] [address] Performed By: #### 2 4362-6, 4541-7 ####[facility] LABCLIA [id number] [address] [address] [place] Chloride [Moles/Vol] 100 mmol/L Normal 98-107 [facility] Comment on above: Order Comment: Speci men Type: BLOOD SPECIMENOrdering Facility: [facility] Address: [address] [place] [address] Performed By: #### 2 4362-6, 4542-7 ####[facility] LABCLIA [id number] [place] [address] [place] CO2 [Moles/Vol] 13 mmol/L Low 22-[address] [facility] Comment on above: Order Comment: Speci men Type: BLOOD SPECIMENOrdering Facility: [facility] Address: [address] [place] [address] Performed By: #### 2 4362-6, 4541-7 ####[facility] LABIA [id number] [place] [address] [place] Creatinine [Mass/Vol] 1.26 mg/dL High 0.73-1.22 [facility] Comment on above: Order Comment: Speci men Type: BLOOD SPECIMENOrdering Facility: [facility] Address: [address] [place] [address] Performed By: #### 2 4362-6, 7 ####[facility] LABIA [id number] [address] [place] Creatinine and Glomerular filtration rate.predicted panel (S/P/Bld) 66 mL/min/1.73m??? Normal >=[address] [facility] Comment on above: Order Comment: Speci men Type: BLOOD SPECIMENOrdering Facility: [facility] Address: [address] [place] [address] Result Comment: Patric mated Glomerular Filtration Rate [...] GFR. Performed By: #### 2 4362-6, 4542-7 ####[facility] LABIA [id number] [address] [address] [place] Glucose [Mass/Vol] 255 mg/dL High 74-99 [facility] Comment on above: Order Comment: Speci men Type: BLOOD SPECIMENOrdering Facility: [facility] Address: [address] [place] [address] Result Comment: The [place] [employer] Association (ADA) provides guidance for cutoff [...] Standards of Medical Care in Diabetes 2016, [place] [employer] Association. Diabetes Care. 2016.39(Suppl 1). Performed By: #### 2 4362-6, 454-7 ####[facility] [id number] [address] [address] [place] Phosphate [Mass/Vol] 2.5 mg/dL Low 2.7-4.8 [facility] Comment on above: Order Comment: Speci men Type: BLOOD SPECIMENOrdering Facility: [facility] Address: [address] [place] [address] Performed By: #### 2 4362-6, 4542-7 ####[facility] [id number] [address] [address] [place] Potassium [Moles/Vol] 4.4 mmol/L Normal 3.7-5.1 [facility] Comment on above: Order Comment: Speci men Type: BLOOD SPECIMENOrdering Facility: [facility] Address: [address] [place] [address] Performed By: #### 2 4362-6, 4542-7 ####[facility] LABIA [id number] [place] [id number] [place] Sodium [Moles/Vol] 123 mmol/L Low 136-144 [facility] Comment on above: Order Comment: Speci men Type: BLOOD SPECIMENOrdering Facility: [facility] Address: [address] [place] [address] Performed By: #### 2 4362-6, 454-7 ####[facility] [id number] [place] [address] [place] Urea nitrogen [Mass/Vol] 21 mg/dL Normal 9-[address] [facility] Comment on above: Order Comment: Speci men Type: BLOOD SPECIMENOrdering Facility: [facility] Address: [address] [place] [address] Performed By: #### 2 4362-6, 454-7 ####[facility] [id number] [place] [id number] [place] Retics #on 11-11-2024 Reticulocytes (Bld) [#/Vol] 0.82245 10*3/uL High 0.018-0.[address] [facility] Comment on above: Order Comment: Speci men Type: BLOOD SPECIMENOrdering Facility: [facility] Address: [address] [place] [address] Performed By: #### I PFR, 74532-1, 63019-0 ####[facility] [id number] [place] [address] [place] Reticulocytes (Bld) [#/Vol]o n 11-11-2024 Reticulocytes/100 RBC (Bld) 4.1 % High 0.4-2.[address] [facility] Comment on above: Order Comment: Speci men Type: BLOOD SPECIMENOrdering Facility: [facility] Address: [address] [place] [address] Performed By: #### I PFR, 45989-7, 67368-0 ####[facility] LABCLIA [id number] [place] [address] [place] SEPSIS LACTATEon 11-11-2024 Lactate [Moles/Vol] 3.4 mmol/L High <=2.0 [facility] Comment on above: Order Comment: Speci men Type: BLOOD SPECIMENOrdering Facility: [facility] Address: [address] [place] [address] Performed By: #### S LACT ####[facility] LABCLIA [id number] [place] [address] [place] Lactate [Moles/Vol] 3.6 mmol/L High <=2.0 [facility] Comment on above: Order Comment: Speci men Type: BLOOD SPECIMENOrdering Facility: [facility] Address: [address] [place] [address] Performed By: #### S LACT ####[facility] LABCLIA [id number] [place] [address] [place] Screen dRVVTon 11-11-2024 dRVVT Coag (PPP) [Time] 42.6 s Normal 32.0-45.7 [facility] Comment on above: Order Comment: Speci men Type: BLOOD SPECIMENOrdering Facility: [facility] Address: [address] [place] [address] Performed By: #### L [id number], HCOAG, 6303-2, 32863-8, 64870-4 ####[facility] LABCLIA [id number] [place] [address] [place] US ABD LIVER VASCULARon 11-02 US ABD LIVER VASCULAR Normal [facility] US DOPPLER COMPLETEon 2024 US DOPPLER COMPLETE Normal [facility] XR ABDOMEN 1V SUPINEon 11-11 XR ABDOMEN 1V SUPINE Normal [facility] XR CHEST 1V FRONTAL PORTon 0 11-11-2024 XR CHEST 1V FRONTAL PORT Normal [facility] XR CHEST 1V FRONTAL PORT Normal [facility] aPTT PPPon 11-11-2024 aPTT Coag (PPP) [Time] 41.7 s High 23.0-32.4 [facility] Comment on above: Order Comment: Speci men Type: BLOOD SPECIMENOrdering Facility: [facility] Address: [address] [place] [address] Performed By: #### 3 255-7, 18798-1 ####[facility] LABCLIA [id number] [place] [address] [place] dRVVT Coag (PPP) [Time]on dRVVT factor substitution immediately after 1:2 addition of normal plasma Coag (PPP) [Time] 35.4 seconds Normal 32.0-45.[address] [facility] Comment on above: Order Comment: Speci men Type: BLOOD SPECIMENOrdering Facility: [facility] Address: [address] [place] [address] Performed By: #### L [id number], HCOAG, 6303-2, 95111-9, 21348-8 ####[facility] LABCLIA [id number] [place] [address] [place] dRVVT/dRVVT.excess phospholipid Coag (PPP) [Ratio] 0.91 Normal <1.[address] [facility] Comment on above: Order Comment: Speci men Type: BLOOD SPECIMENOrdering Facility: [facility] Address: [address] [place] [address] Performed By: #### L [id number], HCOAG, 6303-2, 47428-6, 03253-0 ####[facility] LABCLIA [id number] [place] [id number] [place] ALP [Catalytic activity/Vol] Ordered By: Kathie Lemos on 11-10-2024 Serum or plasma alkaline phosphatase measurement 310 U/L High 40-129 [facility] ALT [Catalytic activity/Vol] Ordered By: Kathie Lemos on 11-10-2024 Serum or plasma alanine aminotransferase (ALT) measurement 36 U/L <47 [facility] Absolute lymphocyte countOrd ered By: Kathie Lemos on 11-10-2024 Lymphocytes Auto (Unsp spec) [#/Vol] 1.30 10*3/uL 0.83-4.51 [facility] Absolute neutrophil countOrd ered By: Kathie Lemos on 11-10-2024 Absolute neutrophil count 16.2 X10^3/uL High 2.0-7.7 [facility] Albumin [Mass/Vol]Ordered By : Kathie Lemos on 11-10-2024 Serum or plasma albumin measurement (mass/volume) 2.3 g/dL Low 3.5-5.0 [facility] Albumin/Globulin [Mass ratio ]Ordered By: Kathie Lemos on 11-10-2024 Serum or plasma albumin/globulin mass ratio 0.7 RATIO Low 0.9-2.4 [facility] Anion gap [Moles/Vol]Ordered By: Kathie Lemos on 11-10-2024 Anion gap in Serum or Plasma 11 5-15 [facility] Anion gap in Serum or Plasma Ordered By: Kathie Lemos on 11-10-2024 Anion gap [Moles/Vol] 11 mmol/L 5-15 [facility] Automated lymphocyte count a s percentage of total leukocytesOrdered By: Kathie Lemos on 11-10-2024 Lymphocytes/100 WBC Auto (Unsp spec) 6.6 % Low 19-41 [facility] BUN/creatinine ratioOrdered By: Kathie Lemos on 11-10-2024 Urea nitrogen/Creatinine [Mass ratio] 16.6 mg/mg 10-20 [facility] BUN/creatinine ratio 16.6 RATIO 10-20 [facility] Bacteria LM.HPF (Urine sed) [#/Area]Ordered By: Kathie Lemos on 11-10-2024 Urine sediment bacteria count by microscopy (number/high power field) 2+ /hpf None Seen [facility] Basophil percentageOrdered B y: Kathie Lemos on 11-10-2024 Basophils/100 WBC (Bld) 0.5 % 0-1 [facility]ophil [facility] 0.5 % 0-1 [facility] Test strip Ql (U)O rdered By: Kathie Lemos on 11-10-2024 Bilirubin Ql (U) Negative Negative [facility] Urine total bilirubin detection by test strip Negative Negative [facility] Bilirubin, totalOrdered By: Kathie Lemos on 11-10-2024 Bilirubin [Mass/Vol] 2.09 mg/dL High 0.00-1.30 [facility] Bilirubin, total 2.09 mg/dL High 0.00-1.30 [facility] Calcium [Mass/Vol]Ordered By : Kathie Lemos on 11-10-2024 Serum or plasma calcium measurement (mass/volume) 9.2 mg/dL 7.6-11.0 [facility] Carbon dioxide, total [Moles /volume] in Central venous bloodOrdered By: Kathie Lemos on 11-10-2024 CO2 [Moles/Vol] 13.3 mmol/L Low 21.0-32.0 [facility] Carbon dioxide, total [Moles/volume] in Central venous blood 13.3 mmol/L Low 21.0-32.0 [facility] Chloride assayOrdered By: Paulette Lemos on 11-10-2024 Chloride [Moles/Vol] 99 mmol/L 98-108 [facility] Chloride assay 99 mmol/L 98-108 [facility] Clarity (U)Ordered By: Kathie Lemos on 11-10-2024 Urine clarity Turbid Clear [facility] Color (U)Ordered By: Kathie Alcaraz ierckarma on 11-10-2024 Urine color determination Brown Yellow [facility] Creatinine [Mass/Vol]Ordered By: Kathie Lemos on 11-10-2024 Serum creatinine measurement (mass/volume) 1.13 mg/dL 0.70-1.20 [facility] Eosinophil percentageOrdered By: Kathie Lemos on 11-10-2024 Eosinophils/100 WBC (Bld) 1.9 % 0-5 [facility] Eosinophil percentage 1.9 % 0-5 [facility] Erythrocyte distribution wid th (RBC) [Ratio]Ordered By: Kathie Lemos on 11-10-2024 Erythrocyte distribution width ratio 18.1 % High 11.6-14.6 [facility] Erythrocyte distribution width standard deviation 62.1 fl High 35.1-43.9 [facility] Erythrocyte distribution wid th ratioOrdered By: Kathie Lemos on 11-10-2024 Erythrocyte distribution width (RBC) [Ratio] 18.1 % High 11.6-14.6 [facility] Erythrocyte distribution wid th standard deviationOrdered By: Kathie Lemos on 11-10-2024 Erythrocyte distribution width (RBC) [Ratio] 62.1 fl High 35.1-43.9 [facility] Estimation of creatinine carolina aranceOrdered By: Kathie Lemos on 11-10-2024 Estimation of creatinine clearance 88.23 ml/min 50-250 [facility] GFR/1.73 sq M.predicted niki g non-blacks MDRD (S/P/Bld) [Vol rate/Area]Ordered By: Kathie Lemos on 11-10-2024 Glomerular filtration rate (GFR) estimation/1.73 sq m using serum, plasma, or whole b 75 >60 [facility] Glomerular filtration rate ( GFR) estimation/1.73 sq m using serum, plasma, or whole bOrdered By: Kathie Lemos on 11-10-2024 GFR/1.73 sq M.predicted among non-blacks MDRD (S/P/Bld) [Vol rate/Area] 75 mL/min/{1.73_m2} >60 [facility] Glucose Ql (U)Ordered By: Paulette Lemos on 11-10-2024 Urine glucose detection Normal mg/dl Normal [facility] Glucose [Mass/Vol]Ordered By : Kathie Lemos on 11-10-2024 Serum glucose measurement (mass/volume) 298 mg/dL High 70-99 [facility] Glucose measurement at bedsi deOrdered By: Kathie Lemos on 11-10-2024 Glucose [Mass/Vol] 265 mg/dL High 74-106 [facility] Glucose measurement at bedside 265 mg/dL High 74-106 [facility] Hematocrit Auto (Bld) [Volum e fraction]Ordered By: Kathie Lemos on 11-10-2024 Hematocrit (Bld) [Volume fraction] 32.9 % Low 40-54 [facility] Automated blood hematocrit (percentage) 32.9 % Low 40-54 [facility] Hemoglobin measurementOrdere d By: Kathie Lemos on 11-10-2024 Hemoglobin (Bld) [Mass/Vol] 11.3 g/dL Low 13.0-16.5 [facility] Hemoglobin measurement 11.3 g/dL Low 13.0-16.5 [facility] Immature granulocytes/100 WB C Auto (Bld)Ordered By: Kathie Lemos on 11-10-2024 Immature granulocytes/100 WBC (Bld) 1.100 % High 0.0-0.9 [facility] Automated immature granulocyte percentage 1.100 % High 0.0-0.9 [facility] International normalized rat io (INR) calculationOrdered By: Kathie Lemos on 11-10-2024 International normalized ratio (INR) calculation 3.1 [facility] Ketones Test strip Ql (U)Ord ered By: Kathie Lemos on 11-10-2024 Ketones Ql (U) 5 mg/dl High Negative [facility] Urine ketones detection by test strip 5 mg/dl High Negative [facility] Leukocyte esterase Test stri p Ql (U)Ordered By: Kathie Lemos on 11-10-2024 Urine leukocyte esterase detection by dipstick 500 /ul High Negative [facility] Lymphocytes Auto (Unsp spec) [#/Vol]Ordered By: Kathie Lemos on 11-10-2024 Absolute lymphocyte count 1.30 X10^3/uL 0.83-4.51 [facility] Lymphocytes/100 WBC Auto (Un sp spec)Ordered By: Kathie Lemos on 11-10-2024 Automated lymphocyte count as percentage of total leukocytes 6.6 % Low 19-41 [facility] MCV (RBC) [Entitic vol]Order ed By: Kathie Lemos on 11-10-2024 MCV (mean corpuscular volume) determination 92.7 fL 80-94 [facility] MCV (mean corpuscular volume ) determinationOrdered By: Kathie Lemos on 11-10-2024 MCV (RBC) [Entitic vol] 92.7 fL 80-94 [facility] Mean corpuscular hemoglobin (MCH) determinationOrdered By: Kathie Lemos on 11-10-2024 MCH (RBC) [Entitic mass] 31.8 pg 27.0-32.0 [facility] Mean corpuscular hemoglobin (MCH) determination 31.8 pg 27.0-32.0 [facility] Mean corpuscular hemoglobin concentration (MCHC) determinationOrdered By: Kathie Lemos on 11-10-2024 Mean corpuscular hemoglobin concentration (MCHC) determination 34.3 g/dL 32-36 [facility] Mean platelet volume determi nationOrdered By: Kathie Lemos on 11-10-2024 Mean platelet volume determination 12.2 fl High 6.2-12.0 [facility] Microscopic analysis of urin e for red blood cells (RBC)Ordered By: Kathie Lemos on 11-10-2024 Microscopic analysis of urine for red blood cells (RBC) > 100 SEEN /hpf 0-5 [facility] Monocyte percentageOrdered B y: Kathie Lemos on 11-10-2024 Monocytes/100 WBC (Bld) 6.9 % 0-10 [facility] Monocyte percentage 6.9 % 0-10 [facility] Mucus LM Ql (Urine sed)Order ed By: Kathie Lemos on 11-10-2024 Mucus Ql (Urine sed) 0 SEEN /hpf [facility] Neutrophil percentageOrdered By: Kathie Lemos on 11-10-2024 Neutrophils/100 WBC (Bld) 83.0 % High 47-70 [facility] Neutrophil percentage 83.0 % High 47-70 [facility] Nitrite Test strip Ql (U)Ord ered By: Kathie Lemos on 11-10-2024 Nitrite Ql (U) Positive High Negative [facility] Urine nitrite test by dipstick Positive High Negative [facility] No Panel InformationOrdered By: Kathie Lemos on 11-10-2024 58 U/L High <38 [facility] Nucleated red blood cell per centageOrdered By: Kathie Lemos on 11-10-2024 Nucleated red blood cell percentage 0 % 0-5 [facility] Platelet countOrdered By: Paulette Lemos on 11-10-2024 Platelets (Bld) [#/Vol] 58 10*3/uL Low 150-450 [facility] Platelet count 58 K/mm3 Low 150-450 [facility] Potassium (Unsp spec) [Mass/ Vol]Ordered By: Kathie Lemos on 11-10-2024 Potassium measurement (mass/volume) 3.6 mmol/L 3.3-5.1 [facility] Potassium measurement (mass/ volume)Ordered By: Kathie Lemos on 11-10-2024 Potassium (Unsp spec) [Mass/Vol] 3.6 mmol/L 3.3-5.1 [facility] Protein Test strip Ql (U)Ord ered By: Kathie Lemos on 11-10-2024 Protein Ql (U) 500 mg/dl High Negative [facility] Urine protein assay by test strip, semi-quantitative 500 mg/dl High Negative [facility] Prothrombin timeOrdered By: Kathie Lemos on 11-10-2024 PT Coag (PPP) [Time] 32.3 s High 11.7-14.9 [facility] Prothrombin time 32.3 SECONDS High 11.7-14.9 [facility] RBC Auto (Bld) [#/Vol]Ordere d By: Kathie Lemos on 11-10-2024 RBC (Bld) [#/Vol] 3.55 10*6/uL Low 4.6-6.2 [facility] Automated blood erythrocyte count 3.55 M/mm3 Low 4.6-6.2 [facility] Serum creatinine measurement (mass/volume)Ordered By: Kathie Lemos on 11-10-2024 Creatinine [Mass/Vol] 1.13 mg/dL 0.70-1.20 [facility] Serum globulin measurementOr dered By: Kathie Lemos on 11-10-2024 Globulin (S) [Mass/Vol] 3.4 g/dL 2.2-4.2 [facility] Serum globulin measurement 3.4 g/dL 2.2-4.2 [facility] Serum glucose measurement (m ass/volume)Ordered By: Kathie Lemos on 11-10-2024 Glucose [Mass/Vol] 298 mg/dL High 70-99 [facility] Serum or plasma alanine thomas otransferase (ALT) measurementOrdered By: Kathie Lemos on 11-10-2024 ALT [Catalytic activity/Vol] 36 U/L <47 [facility] Serum or plasma albumin tyson urement (mass/volume)Ordered By: Kathie Lemos on 11-10-2024 Albumin [Mass/Vol] 2.3 g/dL Low 3.5-5.0 [facility] Serum or plasma albumin/glob ulin mass ratioOrdered By: Kathie Lemos on 11-10-2024 Albumin/Globulin [Mass ratio] 0.7 {ratio} Low 0.9-2.4 [facility] Serum or plasma alkaline kendrick sphatase measurementOrdered By: Kathie Lemos on 11-10-2024 ALP [Catalytic activity/Vol] 310 U/L High 40-129 [facility] Serum or plasma calcium tyson urement (mass/volume)Ordered By: Kathie Lemos on 11-10-2024 Calcium [Mass/Vol] 9.2 mg/dL 7.6-11.0 [facility] Serum or plasma urea nitroge n measurement (mass/volume)Ordered By: Kathie Lemos on 11-10-2024 Urea nitrogen [Mass/Vol] 19 mg/dL 4-19 [facility] Sodium levelOrdered By: Javed Lemos on 11-10-2024 Sodium [Moles/Vol] 123 mmol/L Low 133-145 [facility] Sodium level 123 mmol/L Low 133-145 [facility] Specific gravity (U) [Rel de nsity]Ordered By: Kathie Lemos on 11-10-2024 Urine specific gravity measurement 1.015 1.002-1.030 [facility] Squamous epithelial cells de tection in urine sediment by light microscopyOrdered By: Kathie Lemos on 11-10-2024 Epithelial cells.squamous LM Ql (Urine sed) 0 SEEN /hpf 0-5 [facility] Squamous epithelial cells detection in urine sediment by light microscopy 0 SEEN /hpf [facility] Total proteinOrdered By: Tyree Lemos on 11-10-2024 Protein [Mass/Vol] 5.7 g/dL Low 5.9-8.4 [facility] Total protein 5.7 g/dL Low 5.9-8.4 [facility] Urea nitrogen [Mass/Vol]Orde red By: Kathie Lemos on 11-10-2024 Serum or plasma urea nitrogen measurement (mass/volume) 19 mg/dL 4- [facility] Urine blood detectionOrdered By: Kathie Lemos on 11-10-2024 Urine blood detection 250 /ul High Negative [facility] Urine clarityOrdered By: Tyree Lemos on 11-10-2024 Clarity (U) Turbid Clear [facility] Urine color determinationOrd ered By: Kathie Lemos on 11-10-2024 Color (U) Brown Yellow [facility] Urine glucose detectionOrder ed By: Kathie Lemos on 11-10-2024 Glucose Ql (U) Normal mg/dl Normal [facility] Urine leukocyte esterase det ection by dipstickOrdered By: Kathie Lemos on 11-10-2024 Leukocyte esterase Test strip Ql (U) 500 /ul High Negative [facility] Urine pHOrdered By: Kathie garcias on 11-10-2024 pH (U) 6.5 [pH] 5.0 - 8.0 [facility] Urine sediment bacteria coun t by microscopy (number/high power field)Ordered By: Kathie Lemos on 11-10-2024 Bacteria LM.HPF (Urine sed) [#/Area] 2 /[HPF] None Seen [facility] Urine specific gravity measu rementOrdered By: Kathie Lemos on 11-10-2024 Specific gravity (U) [Rel density] 1.015 1.002-1.030 [facility] Urine urobilinogen measureme ntOrdered By: Kathie Lemos on 11-10-2024 Urobilinogen Ql (U) 1 mg/dl High Normal [facility] Urobilinogen Ql (U)Ordered B y: Kathie Lemos on 11-10-2024 Urine urobilinogen measurement 1 mg/dl High Normal [facility] White blood cell (WBC) count Ordered By: Kathie Lemos on 11-10-2024 WBC (Bld) [#/Vol] 19.6 10*3/uL High 4.4-11.0 [facility] White blood cell (WBC) count 19.6 K/mm3 High 4.4-11.0 [facility] White blood cell countOrdere d By: Kathie Lemos on 11-10-2024 White blood cell count 5-10 SEEN /hpf 0-5 [facility] White blood cell count 5-10 SEEN /hpf 0-5 [facility] pH (U)Ordered By: Kathie aguilar on 11-10-2024 Urine pH 6.5 5.0 - 8.0 [facility] Blood manual differential co mment interpretation (narrative result)Ordered By: Kathie Lemos on 11-09-2024 Manual differential comment Marco Antonio (Bld) [Interp] SCANNED [facility] Lactic acid measurementOrder ed By: Kathie Lemos on 11-09-2024 Lactic acid measurement 2.4 mmol/L High 0.0-2.0 [facility] Manual differential comment Marco Antonio (Bld) [Interp]Ordered By: Kathie Lemos on 11-09-2024 Blood manual differential comment interpretation (narrative result) SCANNED [facility] Pathologist review Marco Antonio (Unsp spec) [Interp]Ordered By: Kathie Lemos on 11-09-2024 Review by pathologist N/A [facility] Platelet estimateOrdered By: Kathie Lemos on 11-09-2024 Platelets LM Ql (Bld) MKD DEC ADEQ [facility] Platelets LM Ql (Bld)Ordered By: Kathie Lemos on 11-09-2024 Platelet estimate MKD DEC ADEQ [facility] Review by pathologistOrdered By: Kathie Lemos on 11-09-2024 Pathologist review Marco Antonio (Unsp spec) [Interp] N/A [facility] Venous blood ammonia measure mentOrdered By: Kathie Lemos on 11-09-2024 Ammonia (P) [Moles/Vol] 104.0 umol/L High 16-60 [facility] Venous blood ammonia measurement 104.0 umol/L High 16-60 [facility] Lipase measurementOrdered By : Kathie Lemos on 11-08-2024 Lipase measurement 94 U/L High 13-75 [facility] Magnesium (Unsp spec) [Mass/ Vol]Ordered By: Kathie Lemos on 11-08-2024 Magnesium measurement (mass/volume) 2.4 mg/dL High 1.5-2.2 [facility] Magnesium measurement (mass/ volume)Ordered By: Kathie Lemos on 11-08-2024 Magnesium (Unsp spec) [Mass/Vol] 2.4 mg/dL High 1.5-2.2 [facility] Serum phosphorus measurement Ordered By: Kathie Lemos on 11-08-2024 Serum phosphorus measurement 1.6 mg/dL Low 2.7-4.5 [facility] Blood polychromasia detectio n by light microscopyOrdered By: Hill Acuña on 11-07-2024 Polychromasia LM Ql (Bld) 1+ [facility] Blood polychromasia detection by light microscopy 1+ [facility] Ovalocyte detectionOrdered B y: Hill Acuña on 11-07-2024 Ovalocytes LM Ql (Bld) 1+ [facility] Band form neutrophils/100 WB C (Bld)Ordered By: Hill Acuña on 11-03-2024 Blood band neutrophil count as percentage of total leukocytes 6 % High 0-5 [facility] Blood band neutrophil count as percentage of total leukocytesOrdered By: Hill Acuña on 11-03-2024 Band form neutrophils/100 WBC (Bld) 6 % High 0-5 [facility] Blood eosinophils/100 leukoc ytesOrdered By: Hill Acuña on 11-03-2024 Eosinophils/100 WBC (Bld) 1 % 0-5 [facility] Blood lymphocytes/100 leukoc ytesOrdered By: Hill Acuña on 11-03-2024 Lymphocytes/100 WBC (Bld) 2 % Low 19-41 [facility] Blood lymphocytes/100 leukocytes 2 % 0-10 [facility] Blood metamyelocytes/100 bri kocytesOrdered By: Hill Acuña on 11-03-2024 Metamyelocytes/100 WBC (Bld) 1 % 0-1 [facility] Blood metamyelocytes/100 leukocytes 1 % 0-5 [facility] Blood monocytes/100 leukocyt esOrdered By: Hill Acuña on 11-03-2024 Monocytes/100 WBC (Bld) 2 % 0-10 [facility] Blood segmented neutrophils/ 100 leukocytesOrdered By: Hill Acuña on 11-03-2024 Segmented neutrophils/100 WBC (Bld) 85 % High 47-70 [facility] Cells counted Molgen (Bld/Ti ss) [#]Ordered By: Hill Acuña on 11-03-2024 Total cell count 100 MANUAL DIFF [facility] Segmented neutrophils/100 WB C (Bld)Ordered By: Hill Acuña on 11-03-2024 Blood segmented neutrophils/100 leukocytes 85 % High 47-70 [facility] Total cell countOrdered By: Hill Acuña on 11-03-2024 Cells counted Molgen (Bld/Tiss) [#] 100 MANUAL DIFF [facility] Erythrocyte morphology asses smentOrdered By: Hill Acuña on 11-02-2024 RBC morphology finding Nom (Bld) NORM C+C NORMAL NORM C&C [facility] RBC morphology finding Nom ( Bld)Ordered By: Hill Acuña on 11-02-2024 Erythrocyte morphology assessment NORM C+C NORMAL NORM C&C [facility] Trough vancomycin levelOrder ed By: Buster Fuchs on 11-01-2024 Vancomycin trough [Mass/Vol] 17.7 ug/mL High 5.0-15.0 [facility] Vancomycin trough [Mass/Vol] Ordered By: Buster Fuchs on 11-01-2024 Trough vancomycin level 17.7 ug/mL High 5.0-15.0 [facility] Activated partial thrombopla stin time (aPTT) in platelet poor plasma by coagulation aOrdered By: Buster Fuchs on 10-31-2024 aPTT Coag (PPP) [Time] 42.7 s High 24.1-36.2 [facility] aPTT Coag (PPP) [Time]Ordere d By: Buster Fuchs on 10-31-2024 Activated partial thromboplastin time (aPTT) in platelet poor plasma by coagulation a 42.7 Seconds High 24.1-36.2 [facility] C. difficile Ql (Stl)Ordered By: Hill Wright on 10-30-2024 Stool Clostridium difficile detection Toxigenic C. difficile Abnormal [facility] Clostridium difficile detect ion by polymerase chain reactionOrdered By: Hill Wright on 10-30-2024 C. difficile DNA ANANTH+probe Ql (Unsp spec) [facility] Stool Clostridium difficile detectionOrdered By: Hill Wright on 10-30-2024 C. difficile Ql (Stl) Toxigenic C. difficile Abnormal [facility] Stool lactoferrin detection by immunoassayOrdered By: Hill Wright on 10-30-2024 Lactoferrin IA Ql (Stl) [facility] Arterial patency Wrist arter y --pre arterial punctureOrdered By: Buster Fuchs on 10-29-2024 Assessment of wrist artery patency prior to arterial puncture Positive [facility] Assessment of wrist artery p atency prior to arterial punctureOrdered By: Buster Fuchs on 10-29-2024 Arterial patency Wrist artery --pre arterial puncture Positive [facility] Base excess Calc (BldV) [Mol es/Vol]Ordered By: Buster Fuchs on 10-29-2024 Blood base excess determination -10 mmol/L Low -2-2 [facility] Blood base excess determinat ionOrdered By: Buster Fuchs on 10-29-2024 Base excess Calc (BldV) [Moles/Vol] -10 mmol/L Low -2-2 [facility] Blood bicarbonate measuremen tOrdered By: Buster Fuchs on 10-29-2024 HCO3 (Bld) [Moles/Vol] 15.2 mmol/L Low 22-26 [facility] Blood bicarbonate measurement 15.2 mmol/L Low 22-26 [facility] Blood cultureOrdered By: Hugo Wright on 10-29-2024 Bacteria identified Cx Nom (Bld) No growth in 5 days. [facility] Blood culture No growth in 5 days. [facility] Calculated very low density lipoprotein (VLDL) cholesterol measurementOrdered By: Hill Wright on 10-29-2024 Calculated very low density lipoprotein (VLDL) cholesterol measurement 17 mg/dL 5-40 [facility] Calculated very low density lipoprotein (VLDL) cholesterol measurement 17 mg/dL 5-40 [facility] Cholesterol [Mass/Vol]Ordere d By: Hill Wright on 10-29-2024 Serum or plasma cholesterol measurement (mass/volume) 132 mg/dL <201 [facility] Cholesterol in HDL [Mass/Vol ]Ordered By: Hill Wright on 10-29-2024 Serum or plasma cholesterol in HDL measurement (mass/volume) 33 mg/dL Low >40 [facility] Determination of fraction of inspired oxygenOrdered By: Buster Fuchs on 10-29-2024 Determination of fraction of inspired oxygen 21.0 [facility] Electrocardiogram reportOrde red By: Joevanny Ramos on 10-29-2024 EKG study [facility] Other Phone: LDL calc ser/plasOrdered By: Hill Wright on 10-29-2024 Cholesterol in LDL [Mass/Vol] 83 mg/dL [facility] Measurement, pHOrdered By: Stacy Fuchs on 10-29-2024 pH (Unsp spec) 7.39 [pH] 7.35-7.45 [facility] No Panel InformationOrdered By: Buster Fuchs on 10-29-2024 ART [facility] L Radial [facility] Not entered [facility] Room Air [facility] No Panel InformationOrdered By: Hill Wright on 10-29-2024 10.20 ug/dL 6.02-18.40 [facility] Osmolality, serumOrdered By: Hill Wrgiht on 10-29-2024 Osmolality, serum 292 mOsm/KG 275-295 [facility] Oxygen saturation measuremen tOrdered By: Buster Fuchs on 10-29-2024 Oxygen saturation measurement 93 % Low 95-99 [facility] Partial pressure of carbon d ioxide measurementOrdered By: Buster Fuchs on 10-29-2024 Partial pressure of carbon dioxide measurement 25.1 mmHg Low 35-45 [facility] Partial pressure of oxygen m easurementOrdered By: Buster Fuchs on 10-29-2024 Partial pressure of oxygen measurement 67 mmHG Low 75-100 [facility] Screening total cholesterol/ high density lipoprotein (HDL) cholesterol ratioOrdered By: Hill Wright on 10-29-2024 Screening total cholesterol/high density lipoprotein (HDL) cholesterol ratio 4.04 [facility] Serum or plasma cholesterol in HDL measurement (mass/volume)Ordered By: Hill Wright on 10-29-2024 Cholesterol in HDL [Mass/Vol] 33 mg/dL Low >40 [facility] Serum or plasma cholesterol measurement (mass/volume)Ordered By: Hill Wright on 10-29-2024 Cholesterol [Mass/Vol] 132 mg/dL <201 [facility] Total carbon dioxide measure mentOrdered By: Buster Fuchs on 10-29-2024 CO2 [Moles/Vol] 16 mmol/L [facility] Total carbon dioxide measurement 16 mmol/L [facility] Triglycerides measurementOrd ered By: Hill Wright on 10-29-2024 Triglycerides measurement 83 mg/dL [facility] Urine cultureOrdered By: Viraj Dunn on 10-29-2024 Bacteria identified Cx Nom (U) Culture exhibits no growth. [facility] Urine culture Culture exhibits no growth. [facility] pH (Unsp spec)Ordered By: Marianna Fuchs on 10-29-2024 Measurement, pH 7.39 7.35-7.45 [facility] Absolute neutrophil countOrd ered By: Alber Dunn on 10-28-2024 Neutrophils (Bld) [#/Vol] 19.0 10*3/uL High 2.0-7.7 [facility] Amorphous sediment LM Ql (Ur ine sed)Ordered By: Alber Dunn on 10-28-2024 Amorphous sediment detection in urine sediment by light microscopy 1+ URATE [facility] Amorphous sediment detection in urine sediment by light microscopyOrdered By: Alber Dunn on 10-28-2024 Amorphous sediment LM Ql (Urine sed) 1+ URATE [facility] Anion gap in Serum or Plasma Ordered By: Alber Dunn on 10-28-2024 Anion gap [Moles/Vol] 17 mmol/L High 5-15 [facility] BUN/creatinine ratioOrdered By: Alber Dunn on 10-28-2024 Urea nitrogen/Creatinine [Mass ratio] 18.8 mg/mg 10-20 [facility] Basophil percentageOrdered B y: Alber Dunn on 10-28-2024 Basophils/100 WBC (Bld) 0.2 % 0-1 [facility] Bilirubin Test strip Ql (U)O rdered By: Alber Dunn on 10-28-2024 Bilirubin Ql (U) 1 mg/dL High Negative [facility] Comment on above: COLOR OF URINE MAY A FFECT DIPSTICK RESULTS. Bilirubin, totalOrdered By: Alber Dunn on 10-28-2024 Bilirubin [Mass/Vol] 1.86 mg/dL High 0.00-1.30 [facility] Carbon dioxide, total [Moles /volume] in Central venous bloodOrdered By: Alber Dunn on 10-28-2024 CO2 [Moles/Vol] 12.4 mmol/L Low 21.0-32.0 [facility] Chloride assayOrdered By: Hernesto Dunn on 10-28-2024 Chloride [Moles/Vol] 98 mmol/L 98-108 [facility] Eosinophil percentageOrdered By: Alber Dunn on 10-28-2024 Eosinophils/100 WBC (Bld) 1.4 % 0-5 [facility] Epithelial cells.squamous LM Ql (Urine sed)Ordered By: Alber Dunn on 10-28-2024 Epithelial cells.squamous LM.HPF (Urine sed) [#/Area] 5 /[HPF] 0-5 [facility] Erythrocyte distribution wid th ratioOrdered By: Alber Dunn on 10-28-2024 Erythrocyte distribution width (RBC) [Ratio] 19.1 % High 11.6-14.6 [facility] Erythrocyte distribution wid th standard deviationOrdered By: Alber Dunn on 10-28-2024 Erythrocyte distribution width (RBC) [Entitic vol] 62.7 fL High 35.1-43.9 [facility] GFR/1.73 sq M.predicted niki g non-blacks MDRD (S/P/Bld) [Vol rate/Area]Ordered By: Alber Dunn on 10-28-2024 Estimated GFR (MDRD) Non-Af Amer 62 >60 [facility] Comment on above: mL/min/1.73m2 CKD-EP I Creatinine Equation (2020) Glucose Ql (U)Ordered By: Hernesto Dunn on 10-28-2024 Glucose (U) [Mass/Vol] 50 mg/dL High Normal [facility] HbA1c (Bld) [Mass fraction]O rdered By: Hill Wright on 10-28-2024 Hemoglobin A1c percentage 6.7 % >5.7 [facility] Hematocrit Auto (Bld) [Volum e fraction]Ordered By: Alber Dunn on 10-28-2024 Hematocrit (Bld) [Volume fraction] 37.3 % Low 40-54 [facility] Hemoglobin A1c percentageOrd ered By: Hill Wright on 10-28-2024 HbA1c (Bld) [Mass fraction] 6.7 % >5.7 [facility] Hemoglobin measurementOrdere d By: Alber Dunn on 10-28-2024 Hemoglobin (Bld) [Mass/Vol] 12.7 g/dL Low 13.0-16.5 [facility] Immature granulocytes/100 WB C Auto (Bld)Ordered By: Alber Dunn on 10-28-2024 Immature granulocytes/100 WBC (Bld) 1.400 % High 0.0-0.9 [facility] Comment on above: IG% - Immature Granu locytes (promyelocytes, myelocytes and metamyelocytes) > 1% indicates that a LEFT SHIFT is Present. Ketones Test strip Ql (U)Ord ered By: Alebr Dunn on 10-28-2024 Ketones Ql (U) 5 mg/dl High Negative [facility] Laboratory - Chemistry and C hemistry - challengeOrdered By: Alber Dunn on 10-28-2024 AST [Catalytic activity/Vol] 48 U/L High <38 [facility] Comment on above: Hemolysis present, R esults could be affected. Laboratory - Hematology and Cell countsOrdered By: Alber Dunn on 10-28-2024 Anisocytosis Ql (Bld) RARE [facility] Lactic acid measurementOrder ed By: Alber Dunn on 10-28-2024 Lactate [Moles/Vol] 4.0 mmol/L High 0.0-2.0 [facility] Comment on above: Critical Result(s) C alled LSPARR at: 2024 by: LAURIE Results read back by same. Critical Result(s) Called at: by: Results read back by same.Previous reported result: 4.0 mmol/LEdited by: RONDA on 10/28/24:2041 AMENDED REPORT 10/28/242041 LACTIC ACID previously reported as: 4.0 *H mmol/L Critical Result(s) Called LSPARR at: 2024 by: LAURIE Results read back by same. Lipase measurementOrdered By : Alber Dunn on 10-28-2024 Lipase [Catalytic activity/Vol] 45 U/L 13-75 [facility] Comment on above: Please note:LIPASE r evised reference range effective 22. New Lipase methodology. Expected to produce lower values than the previous assay method. NEW Reference Range: 13 - 75 U/L Lymphocytes Auto (Unsp spec) [#/Vol]Ordered By: Alber Dunn on 10-28-2024 Lymphocytes (Bld) [#/Vol] 1.28 10*3/uL 0.83-4.51 [facility] Lymphocytes/100 WBC Auto (Un sp spec)Ordered By: Alber Dunn on 10-28-2024 Lymphocytes/100 WBC (Bld) 5.6 % Low 19-41 [facility] MCV (mean corpuscular volume ) determinationOrdered By: Alber Dunn on 10-28-2024 MCV (RBC) [Entitic vol] 91.2 fL 80-94 [facility] Macrocytes Ql (Bld)Ordered B y: Alber Dunn on 10-28-2024 Macrocytosis RARE [facility] Macrocytes detection RARE [facility] Macrocytes detectionOrdered By: Alber Dunn on 10-28-2024 Macrocytes Ql (Bld) RARE [facility] Manual differential comment Marco Antonio (Bld) [Interp]Ordered By: Alber Dunn on 10-28-2024 Differential Comment SEE COMMENT [facility] Comment on above: MONOCYTOSIS NOTED Mean corpuscular hemoglobin (MCH) determinationOrdered By: Alber Dunn on 10-28-2024 MCH (RBC) [Entitic mass] 31.1 pg 27.0-32.0 [facility] Mean corpuscular hemoglobin concentration (MCHC) determinationOrdered By: Alber Dunn on 10-28-2024 MCHC (RBC) [Mass/Vol] 34.0 g/dL 32-36 [facility] Mean platelet volume determi nationOrdered By: Alber Dunn on 10-28-2024 Platelet mean volume (Bld) [Entitic vol] 12.0 fL 6.2-12.0 [facility] Microscopic analysis of urin e for red blood cells (RBC)Ordered By: Alber Dunn on 10-28-2024 Urine RBC > 100 SEEN /hpf 0- [facility] Monocyte percentageOrdered B y: Alber Dunn on 10-28-2024 Monocytes/100 WBC (Bld) 8.4 % 0-10 [facility] Mucus LM Ql (Urine sed)Order ed By: Alber Dunn on 10-28-2024 Mucus Ql (Urine sed) 0 SEEN /hpf [facility] Neutrophil percentageOrdered By: Alebr Dunn on 10-28-2024 Neutrophils/100 WBC (Bld) 83.0 % High 47-70 [facility] Nitrite Test strip Ql (U)Ord ered By: Alber Dunn on 10-28-2024 Nitrite Ql (U) Negative Negative [facility] Nucleated red blood cell per centageOrdered By: Alber Dunn on 10-28-2024 Nucleated RBC/100 WBC (Bld) [Ratio] 0 % 0-5 [facility] Osmolality (U) [Osmolality]O rdered By: Hill Wright on 10-28-2024 Osmolality ur 484 mOsm/KG >50 [facility] Osmolality urOrdered By: Hugo Wright on 10-28-2024 Osmolality (U) [Osmolality] 484 mOsm/KG >50 [facility] Ovalocytes LM Ql (Bld)Ordere d By: Alber Dunn on 10-28-2024 Ovalocytes RARE [facility] Pathologist review Marco Antonio (Unsp spec) [Interp]Ordered By: Alber Dunn on 10-28-2024 Differential Pathologist's Review May foll [facility] Platelet countOrdered By: Hernesto Dunn on 10-28-2024 Platelets (Bld) [#/Vol] 142 10*3/uL Low 150-450 [facility] Platelets LM Ql (Bld)Ordered By: Alber Dunn on 10-28-2024 Platelet Estimate ADEQUATE ADEQ [facility] Potassium (Unsp spec) [Mass/ Vol]Ordered By: Alber Dunn on 10-28-2024 Potassium [Moles/Vol] 4.5 mmol/L 3.3-5.1 [facility] Comment on above: Hemolysis present, R esults could be affected. Protein Test strip Ql (U)Ord ered By: Alber Dunn on 10-28-2024 Protein Ql (U) 500 mg/dl High Negative [facility] RBC Auto (Bld) [#/Vol]Ordere d By: Alber Dunn on 10-28-2024 RBC (Bld) [#/Vol] 4.09 10*6/uL Low 4.6-6.2 [facility] RBC morphology finding Nom ( Bld)Ordered By: Alber Dunn on 10-28-2024 Red Blood Cell Morphology N CHROM NORMAL NORM C&C [facility] Serum creatinine measurement (mass/volume)Ordered By: Alber Dunn on 10-28-2024 Creatinine [Mass/Vol] 1.33 mg/dL High 0.70-1.20 [facility] Serum globulin measurementOr dered By: Alber Dunn on 10-28-2024 Globulin (S) [Mass/Vol] 3.4 g/dL 2.2-4.2 [facility] Serum glucose measurement (m ass/volume)Ordered By: Alber Dunn on 10-28-2024 Glucose [Mass/Vol] 338 mg/dL High 70-99 [facility] Serum or plasma alanine thomas otransferase (ALT) measurementOrdered By: Alber Dunn on 10-28-2024 ALT [Catalytic activity/Vol] 23 U/L <47 [facility] Serum or plasma albumin tyson urement (mass/volume)Ordered By: Alber Dunn on 10-28-2024 Albumin [Mass/Vol] 2.5 g/dL Low 3.5-5.0 [facility] Serum or plasma albumin/glob ulin mass ratioOrdered By: Alber Dunn on 10-28-2024 Albumin/Globulin [Mass ratio] 0.7 {ratio} Low 0.9-2.4 [facility] Serum or plasma alkaline kendrick sphatase measurementOrdered By: Alber Dunn on 10-28-2024 ALP [Catalytic activity/Vol] 274 U/L High 40-129 [facility] Serum or plasma calcium tyson urement (mass/volume)Ordered By: Alber Dunn on 10-28-2024 Calcium [Mass/Vol] 9.2 mg/dL 7.6-11.0 [facility] Serum or plasma urea nitroge n measurement (mass/volume)Ordered By: Alber Dunn on 10-28-2024 Urea nitrogen [Mass/Vol] 25 mg/dL High 4-19 [facility] Sodium levelOrdered By: Alber Dunn on 10-28-2024 Sodium [Moles/Vol] 128 mmol/L Low 133-145 [facility] Total proteinOrdered By: Viraj Dunn on 10-28-2024 Protein [Mass/Vol] 5.9 g/dL 5.9-8.4 [facility] Urine blood detectionOrdered By: Alber Dunn on 10-28-2024 Urine Occult Blood 250 /ul High Negative [facility] Urine clarityOrdered By: Viraj Dunn on 10-28-2024 Clarity (U) Cloudy Clear [facility] Urine color determinationOrd ered By: Alber Dunn on 10-28-2024 Color (U) Red Yellow [facility] Urine leukocyte esterase det ection by dipstickOrdered By: Alber Dunn on 10-28-2024 Leukocyte esterase Test strip Ql (U) 500 /ul High Negative [facility] Urine pHOrdered By: Alber grajeda on 10-28-2024 pH (U) 6.5 [pH] 5.0 - 8.0 [facility] Urine sediment bacteria coun t by microscopy (number/high power field)Ordered By: Alber Dunn on 10-28-2024 Bacteria LM.HPF (Urine sed) [#/Area] 1 /[HPF] None Seen [facility] Urine specific gravity measu rementOrdered By: Alber Dunn on 10-28-2024 Specific gravity (U) [Rel density] 1.015 1.002-1.030 [facility] Urobilinogen Ql (U)Ordered B y: Alber Dunn on 10-28-2024 Urine Urobilinogen Normal mg/dl Normal [facility] White blood cell (WBC) count Ordered By: Alber Dunn on 10-28-2024 WBC (Bld) [#/Vol] 22.9 10*3/uL High 4.4-11.0 [facility] White blood cell countOrdere d By: Alber Dunn on 10-28-2024 Urine WBC >100 SEEN /hpf 0-5 [facility] APTTon 10-04-2024 aPTT Coag (PPP) [Time] 40 s High Un [facility] Albuminon 10-04-2024 Albumin (Body fld) [Mass/Vol] <0.5 Normal Not established [facility] Comment on above: Order Comment: Venip uncture immediately after or during the administration of Metamizole may lead to falsely low results. Testing should be performed immediately prior to Metamizole dosing. Performed By: #### 2 524-7 #### GOMES ALYSSA ([id number]) [facility] ([facility]) [address] [place] [address] Bacteria identifiedon 2024 Bacteria identified Cx Nom (Body fld) Test: Sterile Fluid Culture/Smear Specimen Source: Pleural Specimen Type: Fluid Specimen Date: 10/04/20241713 Result Date: 10/08/2024824 Result Status: Final result Resulting Lab: [facility] [address] [place] [address] CULTURE No growth aerobically and anaerobically STAIN (1+) Rare Polymorphonuclear leukocytes No organisms seen Normal [facility] Comment on above: Performed By: #### 2 524-7 #### MIREYA SHAH ([id number]) [facility] ([facility]) [address] [place] [id number] Basic metabolic 2000 panelon 10-04-2024 Anion gap [Moles/Vol] 8 mmol/L Low 10 - 2 0 mmol/L [facility] Calcium [Mass/Vol] 8.1 mg/dL Low 8.6 - 10. 3 mg/dL [facility] Chloride [Moles/Vol] 109 mmol/L High 98 - 10 7 mmol/L [facility] CO2 [Moles/Vol] 24 mmol/L 21 - 32 mmol/L [facility] Creatinine [Mass/Vol] 0.73 mg/dL 0.50 - 1.30 mg/dL [facility] eGFR - PINF [facility] Comment on above: Calculations of patric mated GFR are performed using the 2020 CKD-EPI Study Refit equation without the race variable for the IDMS-Traceable creatinine methods. https://jasn.asnjournals.org/content/early//ASN.2020 372959 Glucose [Mass/Vol] 197 mg/dL High 74 - 99 mg/dL [facility] Potassium [Moles/Vol] 3.9 mmol/L 3.5 - 5.3 mmol/L [facility] Sodium [Moles/Vol] 137 mmol/L 136 - 145 mmol/L [facility] Urea nitrogen [Mass/Vol] 17 mg/dL 6 - 23 mg/dL [facility] Anion gap [Moles/Vol] 8 mmol/L Low 10-20 [facility] Comment on above: Performed By: #### 2 4321-2 #### MIREYA SHAH ([id number]) [facility] ([facility]) [address] [place] [phone] Calcium [Mass/Vol] 8.1 mg/dL Low 8.6-10.3 [facility] Comment on above: Performed By: #### 2 4321-2 #### MIREYA SHAH ([id number]) [facility] ([facility]) [address] [place] [address] Chloride [Moles/Vol] 109 mmol/L High 98-107 [facility] Comment on above: Performed By: #### 2 4321-2 #### MIREYA SHAH ([id number]) [facility] ([facility]) [facility] [place] [address] CO2 [Moles/Vol] 24 mmol/L Normal 21-32 [facility] Comment on above: Performed By: #### 2 4321-2 #### MIREYA SHAH ([id number]) [facility] ([facility]) [address] [place] [address] Creatinine [Mass/Vol] 0.73 mg/dL Normal 0.50-1.30 [facility] Comment on above: Performed By: #### 2 4321-2 #### MIREYA SHAH ([id number]) [facility] ([facility]) [address] [place] [address] 24542 GFR/1.73 sq M.predicted MDRD (S/P/Bld) [Vol rate/Area] mL/min/{1.73_m2} Normal >60 [facility] Comment on above: Result Comment: Calc ulations of estimated GFR are performed using the 2020 CKD-EPI Study Refit equation without the race variable for the IDMS-Traceable creatinine methods. https://jasn.asnjournals.org/content//ASN.2020 661275 Performed By: #### 2 4321-2 #### MIREYA SHAH ([id number]) [facility] ([facility]) [facility] [place] [address] Glucose [Mass/Vol] 197 mg/dL High 74-99 [facility] Comment on above: Performed By: #### 2 4321-2 #### MIREYA SHAH ([id number]) [facility] ([facility]) [facility] [place] [address] Potassium [Moles/Vol] 3.9 mmol/L Normal 3.5-5.3 [facility] Comment on above: Performed By: #### 2 4321-2 #### MIREYA SHAH ([id number]) [facility] ([facility]) [facility] [place] [address] Sodium [Moles/Vol] 137 mmol/L Normal 136-145 [facility] Comment on above: Performed By: #### 2 4321-2 #### MIREYA SHAH ([id number]) [facility] ([facility]) [facility] [place] [address] Urea nitrogen [Mass/Vol] 17 mg/dL Normal 6-23 [facility] Comment on above: Performed By: #### 2 4321-2 #### MIREYA SHAH ([id number]) [facility] ([facility]) [facility] [place] [address] CBC W Auto Differential pane l (Bld)on 10-04-2024 Basophils (Bld) [#/Vol] 0.02 10*3/uL [facility] Basophils/100 WBC (Bld) 0.4 % 0.0 - 2.0 % [facility] Eosinophils (Bld) [#/Vol] 0.15 10*3/uL [facility] Eosinophils/100 WBC (Bld) 2.7 % 0.0 - 6.0 % [facility] Erythrocyte distribution width (RBC) [Ratio] 22.1 % High 11.5 - 14.5 % [facility] Hematocrit (Bld) [Volume fraction] 29.8 % Low 41.0 - 52.0 % [facility] Hemoglobin (Bld) [Mass/Vol] 9.3 g/dL Low 13.5 - 17.5 g/dL [facility] Immature granulocytes (Bld) [#/Vol] 0.01 10*3/uL [facility] Immature granulocytes/100 WBC (Bld) 0.2 % 0.0 - 0.9 % [facility] Comment on above: Immature Granulocyte Count (IG) includes promyelocytes, myelocytes and metamyelocytes but does not include bands. Percent differential counts (%) should be interpreted in the context of the absolute cell counts (cells/UL). Interpretation and review of laboratory results Abnormal [facility] Lymphocytes (Bld) [#/Vol] 0.64 10*3/uL Low [facility] Lymphocytes/100 WBC (Bld) 11.5 % 13.0 - 44.0 % [facility] MCH (RBC) [Entitic mass] 30 pg 26.0 - 34.0 pg [facility] MCHC (RBC) [Mass/Vol] 31.2 g/dL Low 32.0 - 36.0 g/dL [facility] MCV (RBC) [Entitic vol] 96 fL 80 - 100 fL [facility] Monocytes (Bld) [#/Vol] 0.46 10*3/uL [facility] Monocytes/100 WBC (Bld) 8.3 % 2.0 - 10.0 % [facility] Neutrophils (Bld) [#/Vol] 4.28 10*3/uL [facility] Comment on above: Percent differential counts (%) should be interpreted in the context of the absolute cell counts (cells/uL). Neutrophils/100 WBC (Bld) 76.9 % 40.0 - 80.0 % [facility] Nucleated RBC/100 WBC (Bld) [Ratio] 0 % [facility] Platelets (Bld) [#/Vol] 65 10*3/uL Low U [facility] RBC (Bld) [#/Vol] 3.1 10*6/uL Low [facility] WBC (Bld) [#/Vol] 5.6 10*3/uL [facility] Basophils (Bld) [#/Vol] 0.02 x10*3/uL Normal 0.00-0.10 [facility] Comment on above: Performed By: #### 5 7021-8 #### MIREYA SHAH ([id number]) [facility] ([facility]) [address] [place] [address] Basophils/100 WBC (Bld) 0.4 % Normal 0.0-2.0 [facility] Comment on above: Performed By: #### 5 7021-8 #### MIREYA SHAH ([id number]) [facility] ([facility]) [address] [place] [address]69[address] Eosinophils (Bld) [#/Vol] 0.15 x10*3/uL Normal 0.00-0.70 [facility] Comment on above: Performed By: #### 5 7021-8 #### MIREYA SHAH ([id number]) [facility] ([facility]) [address] [place] [address] 27787 Eosinophils/100 WBC (Bld) 2.7 % Normal 0.0-6.0 [facility] Comment on above: Performed By: #### 5 7021-8 #### MIREYA SHAH ([id number]) [facility] ([facility]) [address] [place] [address] 36657 Erythrocyte distribution width (RBC) [Ratio] 22.1 % High 11.5-14.5 [facility] Comment on above: Performed By: #### 5 7021-8 #### MIREYA SHAH ([id number]) [facility] ([facility]) [address] [place] [address] 57190 Hematocrit (Bld) [Volume fraction] 29.8 % Low 41.0-52.0 [facility] Comment on above: Performed By: #### 5 7021-8 #### MIREYA SHAH ([id number]) [facility] ([facility]) [address] [place] [address] 14529 Hemoglobin (Bld) [Mass/Vol] 9.3 g/dL Low 13.5-17.5 [facility] Comment on above: Performed By: #### 5 7021-8 #### MIREYA SHAH ([id number]) [facility] ([facility]) [address] [place] [address] 95666 Immature granulocytes (Bld) [#/Vol] 0.01 x10*3/uL Normal 0.00-0.70 [facility] Comment on above: Performed By: #### 5 7021-8 #### MIREYA SHAH ([id number]) [facility] ([facility]) [address] [place] [address] 24313 Immature granulocytes/100 WBC (Bld) 0.2 % Normal 0.0-0.9 [facility] Comment on above: Result Comment: Danielle ture Granulocyte Count (IG) includes promyelocytes, myelocytes and metamyelocytes but does not include bands. Percent differential counts (%) should be interpreted in the context of the absolute cell counts (cells/UL). Performed By: #### 5 7021-8 #### MIREYA SHAH ([id number]) [facility] ([facility]) [address] [place] [address] Lymphocytes (Bld) [#/Vol] 0.64 x10*3/uL Low 1.20-4.80 [facility] Comment on above: Performed By: #### 5 7021-8 #### MIREYA SHAH ([id number]) [facility] ([facility]) [address] [place] [address] Lymphocytes/100 WBC (Bld) 11.5 % Normal 13.0-44.0 [facility] Comment on above: Performed By: #### 5 7021-8 #### MIREYA SHAH ([id number]) [facility] ([facility]) [address] [place] [address] 83271 MCH (RBC) [Entitic mass] 30.0 pg Normal 26.0-34.0 [facility] Comment on above: Performed By: #### 5 7021-8 #### MIREYA SHAH ([id number]) [facility] ([facility]) [address] [place] [address] 36157 MCHC (RBC) [Mass/Vol] 31.2 g/dL Low 32.0-36.0 [facility] Comment on above: Performed By: #### 5 7021-8 #### MIREYA SHAH ([id number]) [facility] ([facility]) [address] [place] [address] 84201 MCV (RBC) [Entitic vol] 96 fL Normal 80-100 [facility] Comment on above: Performed By: #### 5 7021-8 #### MIREYA SHAH ([id number]) [facility] ([facility]) [address] [place] [address] 48156 Monocytes (Bld) [#/Vol] 0.46 x10*3/uL Normal 0.10-1.00 [facility] Comment on above: Performed By: #### 5 7021-8 #### MIREYA SHAH ([id number]) [facility] ([facility]) [address] [place] [address] 06340 Monocytes/100 WBC (Bld) 8.3 % Normal 2.0-10.0 [facility] Comment on above: Performed By: #### 5 7021-8 #### MIREYA SHAH ([id number]) [facility] ([facility]) [address] [place] [address] 21640 Neutrophils (Bld) [#/Vol] 4.28 x10*3/uL Normal 1.20-7.70 [facility] Comment on above: Result Comment: Perc ent differential counts (%) should be interpreted in the context of the absolute cell counts (cells/uL). Performed By: #### 5 7021-8 #### MIREYA SHAH ([id number]) [facility] ([facility]) [address] [place] [address] 68351 Neutrophils/100 WBC (Bld) 76.9 % Normal 40.0-80.0 [facility] Comment on above: Performed By: #### 5 7021-8 #### MIREYA SHAH ([id number]) [facility] ([facility]) [address] [place] [address] 35553 Nucleated RBC/100 WBC (Bld) [Ratio] 0.0 /100 WBCs Normal 0.0-0.0 [facility] Comment on above: Performed By: #### 5 7021-8 #### MIREYA SHAH ([id number]) [facility] ([facility]) [address] [place] [address] 22232 Platelets (Bld) [#/Vol] 65 x10*3/uL Low 150-450 [facility] Comment on above: Performed By: #### 5 7021-8 #### MIREYA SHAH ([id number]) [facility] ([facility]) [address] [place] [address] RBC (Bld) [#/Vol] 3.10 x10*6/uL Low 4.50-5.90 [facility] Comment on above: Performed By: #### 5 7021-8 #### GOMES ALYSSA ([id number]) [facility] ([facility]) [facility] [place] [address] WBC (Bld) [#/Vol] 5.6 x10*3/uL Normal 4.4-11.3 [facility] Comment on above: Performed By: #### 5 7021-8 #### GOMES PANCHOLI ([id number]) [facility] ([facility]) [address] [place] [address] ABDOMEN PELVIS W IV CONTR [place] 10-04-2024 CT ABDOMEN PELVIS W IV CONTRAST Interpreted By: Yohana Huang, STUDY: CT ABDOMEN PELVIS W IV CONTRAST; 10/04/2024 2:16 pm INDICATION: Signs/Symptoms:generaliz ed abdominal pain, hx of cirrhosis, recent paracentesis. COMPARISON: None. ACCESSION NUMBER(S): [id number] ORDERING CLINICIAN: SRIRAM OLEARY TECHNIQUE: CT of [...] Yohana Huang 10/04/2024 2:28 PM Dictation workstation: [id number] [facility] CT Abdomen and Pelvis W cont rast Jamari 10-04-2024 Coronary artery calcifications. Anasarca. Ascites. Small irregular liver consistent with cirrhosis. Extensive collateral vessels. Enlarged spleen. Ventral and inguinal hernias containing ascitic fluid. MACRO: none Signed by: Yohana Huang 10/04/2024 2:28 PM Dictation workstation: [id number] Interpreted By: Yohana Chen, STUDY: CT ABDOMEN PELVIS W IV CONTRAST; 10/04/2024 2:16 pm INDICATION: Signs/Symptoms:generaliz ed abdominal pain, hx of cirrhosis, recent paracentesis. COMPARISON: None. ACCESSION NUMBER(S): [id number] ORDERING CLINICIAN: SRIRAM OLEARY TECHNIQUE: CT of [...] do not appear acute. COMPARISON OF FINDINGS: [facility] Yohana Huang MD - 10/04/2024 Interpreted By: Yohana Huang, STUDY: CT ABDOMEN PELVIS W IV CONTRAST; 10/04/2024 2:16 pm INDICATION: Signs/Symptoms:generaliz ed abdominal pain, hx of cirrhosis, recent paracentesis. COMPARISON: None. ACCESSION NUMBER(S): [id number] ORDERING CLINICIAN: SRIRAM OLEARY TECHNIQUE: CT of [...] Yohana Huang 10/04/2024 2:28 PM Dictation workstation: [id number] [facility] Work Phone: Radiology Study observation (narrative) [facility] Work Phone: CT Abdomen and Pelvis W cont rast IVOrdered By: Yohana Huang on 10-04-2024 [facility] Work Phone: Cell count panel (Body fld)O rdered By: Fortino Mcgee on 10-04-2024 Clarity (Body fld) Hazy Abnormal Clear [facility] Color (Body fld) Straw Colorless, Straw, Yellow [facility] Interpretation and review of laboratory results Abnormal [facility] RBC Auto (Body fld) [#/Vol] 2000 /uL see comment [facility] WBC (Body fld) [#/Vol] 0.058 10*3/uL See Commen t [facility] Body Fluid cell coun t reference ranges have not been established by [facility]. Reference ranges provided are based on published references. [facility] Cell count panel (Body fld)o n 10-04-2024 Clarity (Body fld) Hazy Abnormal Clear [facility] Comment on above: Order Comment: Body Fluid cell count reference ranges have not been established by [facility]. Reference ranges provided are based on published references. Performed By: #### 3 4556-1 #### MIREYA SHAH ([id number]) [facility] ([facility]) [address] [place] [address] Color (Body fld) Straw Normal Colorless, Straw, Yellow [facility] Comment on above: Order Comment: Body Fluid cell count reference ranges have not been established by [facility]. Reference ranges provided are based on published references. Performed By: #### 3 4556-1 #### MIREYA SHAH ([id number]) [facility] ([facility]) [facility] [place] [address] RBC Auto (Body fld) [#/Vol] 2000 /uL Normal see comment [facility] Comment on above: Order Comment: Body Fluid cell count reference ranges have not been established by [facility]. Reference ranges provided are based on published references. Performed By: #### 3 4556-1 #### MIREYA SHAH ([id number]) [facility] ([facility]) [address] [place], [place] [phone] WBC (Body fld) [#/Vol] 0.058 10*3/uL Normal See Commen t [facility] Comment on above: Order Comment: Body Fluid cell count reference ranges have not been established by [facility]. Reference ranges provided are based on published references. Performed By: #### 3 4556-1 #### MIREYA SHAH ([id number]) [facility] ([facility]) [address] [place], [place] [phone] Coagulation surface inducedo n 10-04-2024 aPTT Coag (PPP) [Time] 40 s High 26-36 [facility] Comment on above: Order Comment: The A PTT is no longer used for monitoring Unfractionated Heparin Therapy. For monitoring Heparin Therapy, use the Heparin Assay. Performed By: #### 1 4979-9 #### MIREYA SHAH ([id number]) [facility] ([facility]) [address] [place], [place] [address] Coagulation tissue factor in [place]on 10-04-2024 PT Coag (PPP) [Time] 23.6 s High 9.8-12.4 [facility] Comment on above: Performed By: #### 5 902-2 #### MIREYA SHAH ([id number]) [facility] ([facility]) [address] [place], [place] [phone] Differential panel (Body fld )on 10-04-2024 Basophils/100 WBC (Body fld) 0 % not established [facility] Blasts/100 WBC Manual cnt (Body fld) 0 % not established [facility] Cells Counted Total (Body fld) [#] 100 [facility] Eosinophils/100 WBC Manual cnt (Body fld) 0 % see comment [facility] Immature Granulocytes %, Manual, Fluid 0 % not established [facility] Interpretation and review of laboratory results Abnormal [facility] Lymphocytes/100 WBC Manual cnt (Body fld) 19 % see comment [facility] Monocytes+Macrophages/1 00 WBC Manual cnt (Body fld) 17 % see comment [facility] Neutrophils/100 WBC (Body fld) 40 % see comment [facility] Other cells/100 WBC Manual cnt (Body fld) 24 % High not established [facility] Comment on above: Mesothelial cells no tianna by tech Plasma cells/100 WBC Manual cnt (Body fld) 0 % not established [facility] Body Fluid cell differential reference ranges have not been established by [facility]. Reference ranges provided are based on published references. [facility] Basophils/100 WBC (Body fld) 0 % Normal not established [facility] Comment on above: Order Comment: Body Fluid cell differential reference ranges have not been established by [facility]. Reference ranges provided are based on published references. Performed By: #### 2 9580-8 #### MIREYA SHAH ([id number]) [facility] ([facility]) [address] [place] [address] 54304 Blasts/100 WBC Manual cnt (Body fld) 0 % Normal not established [facility] Comment on above: Order Comment: Body Fluid cell differential reference ranges have not been established by [facility]. Reference ranges provided are based on published references. Performed By: #### 2 9580-8 #### MIREYA SHAH ([id number]) [facility] ([facility]) [facility] [place] [address] Cells Counted Total (Body fld) [#] 100 Normal [facility] Comment on above: Order Comment: Body Fluid cell differential reference ranges have not been established by [facility]. Reference ranges provided are based on published references. Performed By: #### 2 9580-8 #### MIREYA SHAH ([id number]) [facility] ([facility]) [address] [place] [address] Eosinophils/100 WBC Manual cnt (Body fld) 0 % Normal see comment [facility] Comment on above: Order Comment: Body Fluid cell differential reference ranges have not been established by [facility]. Reference ranges provided are based on published references. Performed By: #### 2 9580-8 #### MIREYA SHAH ([id number]) [facility] ([facility]) [address] [place] [address] IMMATURE GRANULOCYTES IN FLUID 0 % Normal not established [facility] Comment on above: Order Comment: Body Fluid cell differential reference ranges have not been established by [facility]. Reference ranges provided are based on published references. Performed By: #### 2 9580-8 #### MIREYA SHAH ([id number]) [facility] ([facility]) [address] [place] [address] 21567 Lymphocytes/100 WBC Manual cnt (Body fld) 19 % Normal see comment [facility] Comment on above: Order Comment: Body Fluid cell differential reference ranges have not been established by [facility]. Reference ranges provided are based on published references. Performed By: #### 2 9580-8 #### MIREYA SHAH ([id number]) [facility] ([facility]) [address] [place] [address] 12529 Monocytes+Macrophages/1 00 WBC Manual cnt (Body fld) 17 % Normal see comment [facility] Comment on above: Order Comment: Body Fluid cell differential reference ranges have not been established by [facility]. Reference ranges provided are based on published references. Performed By: #### 2 9580-8 #### MIREYA SHAH ([id number]) [facility] ([facility]) [address] [place] [address] 14812 Neutrophils/100 WBC (Body fld) 40 % Normal see comment [facility] Comment on above: Order Comment: Body Fluid cell differential reference ranges have not been established by [facility]. Reference ranges provided are based on published references. Performed By: #### 2 9580-8 #### MIREYA SHAH ([id number]) [facility] ([facility]) [address] [place] [address] Other cells/100 WBC Manual cnt (Body fld) 24 % High not established [facility] Comment on above: Order Comment: Body Fluid cell differential reference ranges have not been established by [facility]. Reference ranges provided are based on published references. Result Comment: Meso thelial cells noted by tech Performed By: #### 2 9580-8 #### MIREYA SHAH ([id number]) [facility] ([facility]) [address] [place] [address] 09665 Plasma cells/100 WBC Manual cnt (Body fld) 0 % Normal not established [facility] Comment on above: Order Comment: Body Fluid cell differential reference ranges have not been established by [facility]. Reference ranges provided are based on published references. Performed By: #### 2 9580-8 #### MIREYA SHAH ([id number]) [facility] ([facility]) [address] [place] [address] [id number] Glucoseon 10-04-2024 Glucose (Body fld) [Mass/Vol] 200 mg/dL Normal Not established [facility] Comment on above: Order Comment: Venip uncture immediately after or during the administration of Metamizole may lead to falsely low results. Testing should be performed immediately prior to Metamizole dosing. Performed By: #### 2 524-7 #### MIREYA SHAH ([id number]) [facility] ([facility]) [address] [place] [address] [id number] Hepatic function 2000 panelo n 10-04-2024 Albumin BCP dye [Mass/Vol] 2.4 g/dL Low 3.4 - 5.0 g/dL [facility] ALP [Catalytic activity/Vol] 212 U/L High 33 - 120 U/L [facility] ALT With P-5'-P [Catalytic activity/Vol] 46 U/L 10 - 52 U/L [facility] Comment on above: Patients treated wit h Sulfasalazine may generate falsely decreased results for ALT. AST With P-5'-P [Catalytic activity/Vol] 49 U/L High 9 - 39 U/L [facility] Bilirubin [Mass/Vol] 1.8 mg/dL High 0.0 - 1 .2 mg/dL [facility] Bilirubin.direct [Mass/Vol] 0.7 mg/dL High 0.0 - 0.3 mg/dL [facility] Protein [Mass/Vol] 5.7 g/dL Low 6.4 - 8.2 g/dL [facility] Albumin BCP dye [Mass/Vol] 2.4 g/dL Low 3.4-5.0 [facility] Comment on above: Performed By: #### 2 5-3 #### MIREYA SHAH ([id number]) [facility] ([facility]) [address] [place] [address] [id number] ALP [Catalytic activity/Vol] 212 U/L High 33-120 [facility] Comment on above: Performed By: #### 2 4324-3 #### MIREYA SHAH ([id number]) [facility] ([facility]) [address] [place] [address] 36194 ALT With P-5'-P [Catalytic activity/Vol] 46 U/L Normal 10-52 [facility] Comment on above: Result Comment: Argenis ents treated with Sulfasalazine may generate falsely decreased results for ALT. Performed By: #### 2 4324-3 #### MIREYA SHAH ([id number]) [facility] ([facility]) [facility] [place] [address] AST With P-5'-P [Catalytic activity/Vol] 49 U/L High 9-39 [facility] Comment on above: Performed By: #### 2 5-3 #### MIREYA SHAH ([id number]) [facility] ([facility]) [address] [place] [address] 39642 Bilirubin [Mass/Vol] 1.8 mg/dL High 0.0-1.2 [facility] Comment on above: Performed By: #### 2 5-3 #### MIREYA SHAH ([id number]) [facility] ([facility]) [address] [place] [address] 36730 Bilirubin.direct [Mass/Vol] 0.7 mg/dL High 0.0-0.3 [facility] Comment on above: Performed By: #### 2 5-3 #### MIREYA SHAH ([id number]) [facility] ([facility]) [address] [place] [address] Protein [Mass/Vol] 5.7 g/dL Low 6.4-8.2 [facility] Comment on above: Performed By: #### 2 4325-3 #### MIREYA SHAH ([id number]) [facility] ([facility]) [address] [place] [address] 60937 Lactateon 10-04-2024 Lactate [Moles/Vol] 2 mmol/L 0.4 - 2. 0 mmol/L [facility] Lactate [Moles/Vol] 2.0 mmol/L Normal 0.4-2.0 [facility] Comment on above: Order Comment: Venip uncture immediately after or during the administration of Metamizole may lead to falsely low results. Testing should be performed immediately prior to Metamizole dosing. Performed By: #### 2 524-7 #### MIREYA SHAH ([id number]) [facility] ([facility]) [address] [place] [address] [phone] Lactate [Moles/Vol]on 2024 Interpretation and review of laboratory results Normal [facility] Venipuncture immedia tely after or during the administration of Metamizole may lead to falsely low results. Testing should be performed immediately prior to Metamizole dosing. [facility] Lactate dehydrogenaseon LDH Lactate to pyruvate reaction (Body fld) [Catalytic activity/Vol] <25 Normal Not established. [facility] Comment on above: Order Comment: Venip uncture immediately after or during the administration of Metamizole may lead to falsely low results. Testing should be performed immediately prior to Metamizole dosing. Performed By: #### 2 524-7 #### MIREYA SHAH ([id number]) [facility] ([facility]) [address] [place] [address] 12349 Lipaseon 10-04-2024 Lipase [Catalytic activity/Vol] 56 U/L 9 - 82 U/L [facility] Lipase [Catalytic activity/V ol]on 10-04-2024 Interpretation and review of laboratory results Normal [facility] Venipuncture immedia tely after or during the administration of Metamizole may lead to falsely low results. Testing should be performed immediately prior to Metamizole dosing. [facility] No Panel Informationon 10-04 Interpretation and review of laboratory results Abnormal [facility] Interpretation and review of laboratory results Abnormal [facility] Non-obstetrician/gynecologist cytology studyon Non-gynecological cytology method study Pathology report.total SEE COMMENT Non-gynecologic Cytology Case: [id number] Authorizing Provider: Joey Huang DO Collected: 10/04/2024 1714 Ordering Location: [facility] Received: 10/05/2024 2[address] [facility] Pathologist: Jarvis Guzman MD Specimen: ASCITIC FLUID Path report.final diagnosis SEE COMMENT A. ASCITIC FLUID: - NO MALIGNANT CELLS IDENTIFIED. Note: This case has been evaluated using a concentrated (ThinPrep) preparation. Laboratory comment SEE COMMENT Slide(s) initially screened by ABEL Castro at [address] [id number] By the signature on this report, the [...] Block) A1-1 Pap Stain NGYN ThinPrep Normal [facility] PT Coag (PPP) [Time]on 10-04 INR Coag (PPP) [Relative time] 2.1 {INR} High 0.9 - 1.1 [facility] INR Coag (PPP) [Relative time] 2.1 High 0.9-1.1 [facility] Comment on above: Performed By: #### 5 902-2 #### GOMES ALYSSA ([id number]) [facility] ([facility]) [address] [place] [address] Paracentesison 10-04-2024 Joey Huang DO 10/04/2024 5:18 PM Paracentesis Date/Time: 10/04/2024 5:17 PM Performed by: Joey Huang DO Authorized by: Joey Huang DO Consent: Consent obtained: Written Consent given by: Patient Risks, benefits, and alternatives were discussed: yes Risks discussed: Bleeding, bowel perforation and infection Alternatives discussed: No treatment [place] protocol: Procedure explained and questions answered to [...] Adhesive bandage Post-procedure details: Procedure completion: Tolerated [facility] Work Phone: [facility] Work Phone: Proteinon 10-04-2024 Protein (Body fld) [Mass/Vol] g/dL Normal Not established [facility] Comment on above: Order Comment: Venip uncture immediately after or during the administration of Metamizole may lead to falsely low results. Testing should be performed immediately prior to Metamizole dosing. Performed By: #### 2 524-7 #### GOMES ALYSSA ([id number]) [facility] ([facility]) [address] [place] [address] Protime-INRon 10-04-2024 PT Coag (PPP) [Time] 23.6 s High [facility] Triacylglycerol lipaseon Lipase [Catalytic activity/Vol] 56 U/L Normal 9-82 [facility] Comment on above: Order Comment: Venip uncture immediately after or during the administration of Metamizole may lead to falsely low results. Testing should be performed immediately prior to Metamizole dosing. Performed By: #### 3 040-3 #### MIREYA SHAH ([id number]) [facility] ([facility]) [address] [place] [address] aPTT Coag (PPP) [Time]on The APTT is no longe r used for monitoring Unfractionated Heparin Therapy. For monitoring Heparin Therapy, use the Heparin Assay. [facility] pHon 10-04-2024 pH (Body fld) 7.82 Normal See Below [facility] Comment on above: Order Comment: Venip uncture immediately after or during the administration of Metamizole may lead to falsely low results. Testing should be performed immediately prior to Metamizole dosing. Performed By: #### 2 524-7 #### MIREYA SHAH ([id number]) [facility] ([facility]) [facility] [place] [address] Glucose measurement at [facility] deOrdered By: Boone Izquierdo on 09-14-2024 Bedside Glucose (Misc Panel) 134 mg/dL High 74-106 [facility] Comment on above: MANAGEMENT OF PATIEN T CARE PER NURSING PROTOCOL Glucose [Mass/Vol] 134 mg/dL High 74-106 [facility] Glucose measurement at bedside 134 mg/dL High 74-106 [facility] Blood urea nitrogen (BUN)/cr eatinine ratioOrdered By: Jae Ash on 09-12-2024 Urea nitrogen/Creatinine [Mass ratio] 7.6 mg/mg Low 10-20 [facility] Blood urea nitrogen (BUN)/creatinine ratio 7.6 RATIO Low 10-20 [facility] Calcium [Mass/Vol]Ordered By : Jae Ash on 09-12-2024 Serum or plasma calcium measurement (mass/volume) 8.1 mg/dL Low 8.5-10.1 [facility] Carbon dioxide measurementOr dered By: Jae Ash on 09-12-2024 CO2 [Moles/Vol] 20.0 mmol/L Low 21.0-32.0 [facility] Carbon dioxide measurement 20.0 mmol/L Low 21.0-32.0 [facility] Chloride measurementOrdered By: Jae Ash on 09-12-2024 Chloride [Moles/Vol] 109 mmol/L High 98-107 [facility] Chloride measurement 109 mmol/L High 98-107 [facility] Creatinine [Mass/Vol]Ordered By: Jae Ash on 09-12-2024 Serum or plasma creatinine measurement (mass/volume) 0.92 mg/dL 0.70-1.30 [facility] Erythrocyte distribution wid th (RBC) [Ratio]Ordered By: Jae Ash on 09-12-2024 Erythrocyte distribution width ratio 19.7 % High 11.6-14.6 [facility] Erythrocyte distribution width standard deviation 63.5 fl High 35.1-43.9 [facility] Erythrocyte distribution wid th ratioOrdered By: Jae Ash on 09-12-2024 Erythrocyte distribution width (RBC) [Ratio] 19.7 % High 11.6-14.6 [facility] Erythrocyte distribution wid th standard deviationOrdered By: Jae Ash on 09-12-2024 Erythrocyte distribution width (RBC) [Entitic vol] 63.5 fL High 35.1-43.9 [facility] Erythrocyte distribution width (RBC) [Ratio] 63.5 fl High 35.1-43.9 [facility] Estimated glomerular filtrat ion rate (GFR) AmericanOrdered By: Jae Ash on 09-12-2024 Estimated GFR (MDRD) Amer 108 mL/min >60 [facility] Comment on above: GFR Calc Estimated glomerular filtration rate (GFR) 108 mL/min >60 [facility] Estimation of creatinine carolina aranceOrdered By: Jae Ash on 09-12-2024 Estimated Creatinine Clearance Calc 71.80 ml/min [facility] Estimation of creatinine clearance 71.80 ml/min [facility] Glomerular filtration rate ( GFR) estimationOrdered By: Jae Ash on 09-12-2024 Estimated GFR (MDRD) Non-Af Amer 89 mL/min >60 [facility] Comment on above: Non- GFR Calc GFR/1.73 sq M.predicted among non-blacks MDRD (S/P/Bld) [Vol rate/Area] 89 mL/min/{1.73_m2} >60 [facility] Glomerular filtration rate (GFR) estimation 89 mL/min >60 [facility] Glucose measurementOrdered B y: Jae Ash on 09-12-2024 Glucose [Mass/Vol] 149 mg/dL High 74-106 [facility] Comment on above: Fasting Glucose resu lt greater than or equal to 126 mg/dL suggests DIABETES MELLITUS per A.D.A. criteria. Glucose measurement 149 mg/dL High 74-106 [facility] Hematocrit Auto (Bld) [Volum e fraction]Ordered By: Jae Ash on 09-12-2024 Hematocrit (Bld) [Volume fraction] 25.8 % Low 40-54 [facility] Automated blood hematocrit (percentage) 25.8 % Low 40-54 [facility] Hemoglobin measurementOrdere d By: Jae Ash on 09-12-2024 Hemoglobin (Bld) [Mass/Vol] 8.1 g/dL Low 13.0-16.5 [facility] Hemoglobin measurement 8.1 g/dL Low 13.0-16.5 [facility] MCV (RBC) [Entitic vol]Order ed By: Jae Ash on 09-12-2024 MCV (mean corpuscular volume) determination 90.5 fL 80-94 [facility] MCV (mean corpuscular volume ) determinationOrdered By: Jae Ash on 09-12-2024 MCV (RBC) [Entitic vol] 90.5 fL 80-94 [facility] Mean corpuscular hemoglobin (MCH) determinationOrdered By: Jae Ash on 09-12-2024 MCH (RBC) [Entitic mass] 28.4 pg 27.0-32.0 [facility] Mean corpuscular hemoglobin (MCH) determination 28.4 pg 27.0-32.0 [facility] Mean corpuscular hemoglobin concentration (MCHC) determinationOrdered By: Jae Ash on 09-12-2024 MCHC (RBC) [Mass/Vol] 31.4 g/dL Low 32-36 [facility] Comment on above: Delta: 33.1 on 09/10 Mean corpuscular hemoglobin concentration (MCHC) determination 31.4 g/dL [facility] 32-36 [facility] Mean platelet volume determi nationOrdered By: Jae Ash on 09-12-2024 Platelet mean volume (Bld) [Entitic vol] 11.9 fL 6.2-12.0 [facility] Mean platelet volume determination 11.9 fl 6.2-12.0 [facility] Platelet countOrdered By: Sky kowally Nilsa on 09-12-2024 Platelets (Bld) [#/Vol] 115 10*3/uL Low 150-450 [facility] Platelet count 115 K/mm3 Low 150-450 [facility] Potassium measurementOrdered By: Jae Ash on 09-12-2024 Potassium [Moles/Vol] 3.4 mmol/L Low 3.5-5.1 [facility] Potassium measurement 3.4 mmol/L Low 3.5-5.1 [facility] RBC Auto (Bld) [#/Vol]Ordere d By: Jae Ash on 09-12-2024 RBC (Bld) [#/Vol] 2.85 10*6/uL Low 4.6-6.2 [facility] Automated blood erythrocyte count 2.85 M/mm3 Low 4.6-6.2 [facility] Serum anion gap measurementO rdered By: Jae Ash on 09-12-2024 Anion gap [Moles/Vol] 7 mmol/L 5-15 [facility] Serum anion gap measurement 7 5-15 [facility] Serum or plasma calcium tyson urement (mass/volume)Ordered By: Jae Ash on 09-12-2024 Calcium [Mass/Vol] 8.1 mg/dL Low 8.5-10.1 [facility] Serum or plasma creatinine m easurement (mass/volume)Ordered By: Jae Ash on 09-12-2024 Creatinine [Mass/Vol] 0.92 mg/dL 0.70-1.30 [facility] Comment on above: The validity of the calculated GFR & GFRAA in patients over 70 years has not been determined. Clinical correlation is essential. Serum or plasma urea nitroge n measurement (mass/volume)Ordered By: aJe Ash on 09-12-2024 Urea nitrogen [Mass/Vol] 7 mg/dL 7-18 [facility] Sodium levelOrdered By: Pasha Ash on 09-12-2024 Sodium [Moles/Vol] 136 mmol/L 136-145 [facility] Sodium level 136 mmol/L 136-145 [facility] Urea nitrogen [Mass/Vol]Orde red By: Jae Ash on 09-12-2024 Serum or plasma urea nitrogen measurement (mass/volume) 7 mg/dL 7-18 [facility] White blood cell (WBC) count Ordered By: Jae Ash on 09-12-2024 WBC (Bld) [#/Vol] 7.4 10*3/uL 4.4-11.0 [facility] White blood cell (WBC) count 7.4 K/mm3 4.4-11.0 [facility] Serum or plasma trough vanco mycin levelOrdered By: Thai Thurston on 09-10-2024 Vancomycin trough [Mass/Vol] 15.7 ug/mL High 5.0-15.0 [facility] Vancomycin trough [Mass/Vol] Ordered By: Thai Thurston on 09-10-2024 Vancomycin Level Trough 15.7 ug/mL High 5.0-15.0 [facility] Comment on above: VANCOMYCIN STANDARED DRUG THERAPY TROUGH LEVEL: 5.0 - 15.0 mg/L VANCOMYCIN HIGH INTENSITY THERAPY TROUGH LEVEL: 15.0 - 20.0 mg/L High Intensity therapy recommended for serious lifethreatening infections include:- Zkezkeusga-Csuissusimjz-Ilfqbkorx (Ventilator/Healtcare Associated)-Sepsis PLEASE CONTACT PHARMACY SERVICES (#[id number]) FOR INTERPRETATIONOF RESULTS. Serum or plasma trough vancomycin level 15.7 ug/mL High 5.0-15.0 [facility] Serum or plasma vancomycin l evel (mass/volume)Ordered By: Maria Guadalupe Shore on 09-08-2024 Vancomycin [Mass/Vol] 16.5 ug/mL High 0.0-15.0 [facility] Vancomycin [Mass/Vol]Ordered By: Maria Guadalupe Shore on 09-08-2024 Random Vancomycin Level 16.5 ug/mL High 0.0-15.0 [facility] Comment on above: VANCOMYCIN STANDARD DRUG THERAPY: CRITICAL VALUE IS > 15.0 mg/L VANCOMYCIN HIGH INTENSITY THERAPY: CRITICAL VALUE IS > 20.0 mg/L PLEASE CONTACT PHARMACY SERVICES (#[id number]) FOR INTERPRETATIONOF RESULTS. THIS RESULT DOES NOT REPRESENT A PEAK OR TROUGHLEVEL FOR THIS DRUG. Serum or plasma vancomycin level (mass/volume) 16.5 ug/mL High 0.0-15.0 [facility] Absolute lymphocyte countOrd ered By: Anurag Irene on 09-07-2024 Lymphocytes Auto (Unsp spec) [#/Vol] 0.95 10*3/uL 0.83-4.51 [facility] Absolute neutrophil countOrd ered By: Anurag Irene on 09-07-2024 Neutrophils (Bld) [#/Vol] 13.3 10*3/uL High 2.0-7.7 [facility] Absolute neutrophil count 13.3 X10^3/uL High 2.0-7.7 [facility] Automated lymphocyte count a s percentage of total leukocytesOrdered By: Anurag Irene on 09-07-2024 Lymphocytes/100 WBC Auto (Unsp spec) 5.8 % Low 19-41 [facility] Basophil percentageOrdered B y: Anurag Irene on 09-07-2024 Basophils/100 WBC (Bld) 0.4 % 0-1 [facility] 0.4 % 0-[facility] Eosinophil percentageOrdered By: Anurag Irene on 09-07-2024 Eosinophils/100 WBC (Bld) 3.0 % 0-5 [facility] Eosinophil percentage 3.0 % 0-5 [facility] Immature granulocytes/100 WB C Auto (Bld)Ordered By: Anurag Irene on 09-07-2024 Immature granulocytes/100 WBC (Bld) 1.400 % High 0.0-0.9 [facility] Comment on above: IG% - Immature Granu locytes (promyelocytes, myelocytes and metamyelocytes) > 1% indicates that a LEFT SHIFT is Present. Automated immature granulocyte percentage 1.400 % High 0.0-0.9 [facility] Lymphocytes Auto (Unsp spec) [#/Vol]Ordered By: Anurag Irene on 09-07-2024 Lymphocytes (Bld) [#/Vol] 0.95 10*3/uL 0.83-4.51 [facility] Absolute lymphocyte count 0.95 X10^3/uL 0.83-4.51 [facility] Lymphocytes/100 WBC Auto (Un sp spec)Ordered By: Anurag Irene on 09-07-2024 Lymphocytes/100 WBC (Bld) 5.8 % Low 19-41 [facility] Automated lymphocyte count as percentage of total leukocytes 5.8 % Low 19-41 [facility] Monocyte percentageOrdered B y: Anurag Irene on 09-07-2024 Monocytes/100 WBC (Bld) 8.6 % 0-10 [facility] Monocyte percentage 8.6 % 0-10 [facility] Neutrophil percentageOrdered By: Anurag Irene on 09-07-2024 Neutrophils/100 WBC (Bld) 80.8 % High 47-70 [facility] Neutrophil percentage 80.8 % High 47-70 [facility] Nucleated red blood cell per centageOrdered By: Anurag Irene on 09-07-2024 Nucleated RBC/100 WBC (Bld) [Ratio] 0 % 0-5 [facility] Nucleated red blood cell percentage 0 % 0-5 [facility] Blood cultureOrdered By: [place] Irene on 09-06-2024 Bacteria identified Cx Nom (Bld) No growth in 5 days. [facility] Blood culture No growth in 5 days. [facility] Blood cultureOrdered By: Shi Joiner on 09-05-2024 Bacteria identified Cx Nom (Bld) Staphylococcus epidermidis Abnormal [facility] Blood culture Staphylococcus epidermidis Abnormal [facility] Folic acid measurementOrdere d By: Hill Wright on 09-05-2024 Folate 30.10 ng/mL 3.1-55.4 [facility] Folic acid measurement 30.10 ng/mL 3.1-55.4 [facility] Lactic acid measurementOrder ed By: Hill Wright on 09-05-2024 Lactate [Moles/Vol] 2.3 mmol/L High 0.4-2.0 [facility] Comment on above: Critical Result(s) C alled at: 08:26:40 09/05/2024 by: Lucy Haque to [facility]. Results read back by same. Lactic acid measurement 2.3 mmol/L High 0.4-2.0 [facility] Serum ethanol measurementOrd ered By: Hill Wright on 09-05-2024 Ethyl Alcohol Level 4.0 mg/dL [facility] Comment on above: The serum:whole bloo d ethanol ratio is approximately 1.14and varies slightly with hematocrit. Medical Alcohol reference interval and critical value innon-tolerant individuals; 50 - 100 Impairment 100 Intoxication 100 - 250 Severe Poisoning 250 - 400 Deep/possible fatal coma Serum ethanol measurement 4.0 mg/dL [facility] Vitamin B12 measurementOrder ed By: Hill Wright on 09-05-2024 Vitamin B12 Level > 2000 pg/mL High 211-911 [facility] Vitamin B12 measurement > 2000 pg/mL High 211-911 [facility] ALP [Catalytic activity/Vol] Ordered By: Rachel Joiner on 09-04-2024 Serum or plasma alkaline phosphatase measurement 269 U/L High 45-117 [facility] ALT [Catalytic activity/Vol] Ordered By: Rachel Joiner on 09-04-2024 Serum or plasma alanine aminotransferase (ALT) measurement 79 U/L High 16-61 [facility] Albumin [Mass/Vol]Ordered By : Rachel Joiner on 09-04-2024 Serum or plasma albumin measurement (mass/volume) 2.0 g/dL Low 3.2-5.0 [facility] Bilirubin Test strip Ql (U)O rdered By: Rachel Joiner on 09-04-2024 Bilirubin Ql (U) 1 mg/dL High Negative [facility] Comment on above: COLOR OF URINE MAY A FFECT DIPSTICK RESULTS. Bilirubin directOrdered By: Rachel Joiner on 09-04-2024 Bilirubin.direct [Mass/Vol] 1.80 mg/dL High 0.00-0.30 [facility] Bilirubin, totalOrdered By: Rachel Joiner on 09-04-2024 Bilirubin [Mass/Vol] 3.10 mg/dL High 0.20-1.00 [facility] Comment on above: For patients on eltr ombopag therapy, use of Dimension [place] TBIL is not recommended. Bilirubin, total 3.10 mg/dL High 0.20-1.00 [facility] Bilirubin.direct [Mass/Vol]O rdered By: Rachel Joiner on 09-04-2024 Bilirubin direct 1.80 mg/dL High 0.00-0.30 [facility] Blood cultureOrdered By: Shi Joiner on 09-04-2024 Bacteria identified Cx Nom (Bld) [facility] Clarity (U)Ordered By: Kaz Joiner on 09-04-2024 Urine clarity Clear Clear [facility] Color (U)Ordered By: Rachel Joiner on 09-04-2024 Urine color determination Yellow Yellow [facility] Epithelial cells.squamous LM Ql (Urine sed)Ordered By: Rachel Joiner on 09-04-2024 Epithelial cells.squamous LM.HPF (Urine sed) [#/Area] 0 /[HPF] 0-5 [facility] Glucose Ql (U)Ordered By: Brendan Joiner on 09-04-2024 Urine Glucose (UA) Normal mg/dl Normal [facility] Urine glucose detection Normal mg/dl Normal [facility] HbA1c (Bld) [Mass fraction]O rdered By: Hill Wright on 09-04-2024 Hemoglobin A1c percentage 7.3 % High 3.8-5.6 [facility] Hemoglobin A1c percentageOrd ered By: Hill Wright on 09-04-2024 HbA1c (Bld) [Mass fraction] 7.3 % High 3.8-5.6 [facility] Comment on above: Normal < 5.7 % Predi abetic 5.7 - 6.4 % Diabetic >or= 6.5 % Please note range changes. Ketones Test strip Ql (U)Ord ered By: Rachel Joiner on 09-04-2024 Ketones Ql (U) Negative Negative [facility] Laboratory - Chemistry and C hemistry - challengeOrdered By: Rachel Joiner on 09-04-2024 AST [Catalytic activity/Vol] 156 U/L High 15-37 [facility] Leukocyte esterase Test stri p Ql (U)Ordered By: Rachel Joiner on 09-04-2024 Urine leukocyte esterase detection by dipstick 100 /ul High Negative [facility] Methadone, urineOrdered By: Rachel Joiner on 09-04-2024 Urine Methadone Screen Negative < 300 ng/mL [facility] Microorganism identified Cx Nom (Unsp spec)Ordered By: Rachel Joiner on 09-04-2024 Bacteria Detection (PCR) Staphylococcus epidermidis Abnormal [facility] Bacteria Detection (PCR) mecA Resistance Marker Abnormal [facility] Organism identification mecA Resistance Marker Abnormal [facility] Microscopic analysis of urin e for red blood cells (RBC)Ordered By: Rachel Joiner on 09-04-2024 Urine RBC 10-25 SEEN /hpf 0-5 [facility] Microscopic analysis of urine for red blood cells (RBC) 10-25 SEEN /hpf 0-5 [facility] Mucus LM Ql (Urine sed)Order ed By: Rachel Joiner on 09-04-2024 Mucus Ql (Urine sed) 0 SEEN /hpf [facility] Nitrite Test strip Ql (U)Ord ered By: Rachel Joiner on 09-04-2024 Nitrite Ql (U) Negative Negative [facility] No Panel InformationOrdered By: Rachel Joiner on 09-04-2024 156 U/L High 15-37 [facility] Urine Drug Screen Comment [facility] Comment on above: CONFIRMATORY TESTING [...] MUST BE ORDERED SEPARATELY. USE TESTMNEMONIC: UTCA [facility] Organism identificationOrder ed By: Rachel Joiner on 09-04-2024 Microorganism identified Cx Nom (Unsp spec) Staphylococcus epidermidis Abnormal [facility] Microorganism identified Cx Nom (Unsp spec) mecA Resistance Marker Abnormal [facility] Protein Test strip Ql (U)Ord ered By: Rachel Joiner on 09-04-2024 Protein Ql (U) 30 mg/dl High Negative [facility] Urine protein assay by test strip, semi-quantitative 30 mg/dl High Negative [facility] Quantitative urine opiates m easurementOrdered By: Rachel Joiner on 09-04-2024 Opiates Ql (U) Positive High < 300 ng/mL [facility] Quantitative urine opiates measurement Positive High < 300 ng/mL [facility] Screening prostate specific antigen (PSA) measurementOrdered By: Hill Wright on 09-04-2024 Prostate Specific Antigen Screen 1.41 ng/mL 0.00-4.00 [facility] Comment on above: This test was perfor med using the TPSA assay method for the[facility] system. Values obtained with differentassay methods cannot be used interchangably.When changing PSA assays in the course of monitoring apatient, additional sequential testing should be carriedout to confirm baseline values. Screening prostate specific antigen (PSA) measurement 1.41 ng/mL 0.00-4.00 [facility] Serum globulin measurementOr dered By: Rachel Joiner on 09-04-2024 Globulin (S) [Mass/Vol] 4.1 g/dL 2.2-4.2 [facility] Serum globulin measurement 4.1 g/dL 2.2-4.2 [facility] Serum or plasma alanine thomas otransferase (ALT) measurementOrdered By: Rachel Joiner on 09-04-2024 ALT [Catalytic activity/Vol] 79 U/L High 16-61 [facility] Serum or plasma albumin tyson urement (mass/volume)Ordered By: Rachel Joiner on 09-04-2024 Albumin [Mass/Vol] 2.0 g/dL Low 3.2-5.0 [facility] Serum or plasma alkaline kendrick sphatase measurementOrdered By: Rachel Joiner on 09-04-2024 ALP [Catalytic activity/Vol] 269 U/L High 45-117 [facility] Serum or plasma thyroid stim ulating hormone (TSH) measurement (units/volume)Ordered By: Hill Wright on 09-04-2024 TSH Qn 0.826 uIU/mL 0.358-3.740 [facility] Specific gravity (U) [Rel de nsity]Ordered By: Rachel Joiner on 09-04-2024 Urine specific gravity measurement 1.020 1.002-1.030 [facility] Squamous epithelial cells de tection in urine sediment by light microscopyOrdered By: Rachel Joiner on 09-04-2024 Epithelial cells.squamous LM Ql (Urine sed) 0 SEEN /hpf 0-5 [facility] Squamous epithelial cells detection in urine sediment by light microscopy 0 SEEN /hpf [facility] TSH QnOrdered By: Hill patino on 09-04-2024 Thyroid Stimulating Hormone (TSH) 0.826 uIU/mL 0.358-3.740 [facility] Serum or plasma thyroid stimulating hormone (TSH) measurement (units/volume) 0.826 uIU/mL 0.358-3.740 [facility] Total proteinOrdered By: Shi Joiner on 09-04-2024 Protein [Mass/Vol] 6.1 g/dL Low 6.4-8.2 [facility] Total protein 6.1 g/dL Low 6.4-8.2 [facility] Urine amphetamine measuremen tOrdered By: Rachel Joiner on 09-04-2024 Amphetamines Ql (U) Negative <1000 ng/mL [facility] Urine barbiturates measureme ntOrdered By: Rachel Joiner on 09-04-2024 Urine Barbiturates Screen Negative < 200 ng/mL [facility] Urine benzodiazepine levelOr dered By: Rachel Joiner on 09-04-2024 Benzodiazepines Ql (U) Negative < 200 ng/mL [facility] Urine blood detectionOrdered By: Rachel Joiner on 09-04-2024 Urine Occult Blood 150 /ul High Negative [facility] Urine blood detection 150 /ul High Negative [facility] Urine clarityOrdered By: Shi Joiner on 09-04-2024 Clarity (U) Clear Clear [facility] Urine cocaine levelOrdered B y: Rachel Joiner on 09-04-2024 Cocaine Ql (U) Negative < 300 ng/mL [facility] Urine color determinationOrd ered By: Rachel Joiner on 09-04-2024 Color (U) Yellow Yellow [facility] Urine cultureOrdered By: Hugo Wright on 09-04-2024 Bacteria identified Cx Nom (U) Staphylococcus epidermidis Abnormal [facility] Urine culture Staphylococcus epidermidis Abnormal [facility] Urine [id number] abinol (THC) measurementOrdered By: Rachel Joiner on 09-04-2024 Cannabinoids Screen Ql (U) Negative < 50 ng/mL [facility] Urine glucose detectionOrder ed By: Rachel Joiner on 09-04-2024 Glucose Ql (U) Normal mg/dl Normal [facility] Urine ketones detection by t est stripOrdered By: Rachel Joiner on 09-04-2024 Urine ketones detection by test strip Negative < 50 ng/mL [facility] Urine leukocyte esterase det ection by dipstickOrdered By: Rachel Joiner on 09-04-2024 Leukocyte esterase Test strip Ql (U) 100 /ul High Negative [facility] Urine methylenedioxymethamph etamine (MDMA) measurementOrdered By: Rachel Joiner on 09-04-2024 MDMA (Ecstasy) Screen Negative < 500 ng/mL [facility] Urine pHOrdered By: Rachel silva on 09-04-2024 pH (U) 6.0 [pH] 5.0 - 8.0 [facility] Urine phencyclidine (PCP) de tectionOrdered By: Rachel Joiner on 09-04-2024 Phencyclidine Ql (U) Negative < 25 ng/mL [facility] Urine sediment bacteria coun t by microscopy (number/high power field)Ordered By: Rachel Joiner on 09-04-2024 Bacteria LM.HPF (Urine sed) [#/Area] 0 /[HPF] None Seen [facility] Urine specific gravity measu rementOrdered By: Rachel Joiner on 09-04-2024 Specific gravity (U) [Rel density] 1.020 1.002-1.030 [facility] Urine total bilirubin detect ion by test stripOrdered By: Rachel Joiner on 09-04-2024 Urine total bilirubin detection by test strip 1 mg/dL High Normal [facility] Urine urobilinogen measureme ntOrdered By: Rachel Joiner on 09-04-2024 Urobilinogen Ql (U) 1 mg/dl High Normal [facility] Urobilinogen Ql (U)Ordered B y: Rachel Joiner on 09-04-2024 Urobilinogen (U) [Mass/Vol] 1 mg/dL High Normal [facility] Venous blood ammonia measure mentOrdered By: Rachel Joiner on 09-04-2024 Ammonia (P) [Moles/Vol] 26.0 umol/L [facility] Venous blood ammonia measurement 26.0 umol/L [facility] White blood cell countOrdere d By: Rachel Joiner on 09-04-2024 Urine WBC 5-10 SEEN /hpf 0-5 [facility] Comment on above: Previous reported re sult: 0 SEEN /hpfEdited by: DANIEL on 09/04/24:2337 AMENDED REPORT 09/04/242336 WBC previously reported as: 0 SEEN /hpf White blood cell count 5-10 SEEN /hpf 0-5 [facility] White blood cell count 5-10 SEEN /hpf 0-5 [facility] pH (U)Ordered By: Rachel Lolis lambert on 09-04-2024 Urine pH 6.0 5.0 - 8.0 [facility] Absolute lymphocyte countOrd ered By: Bola Meraz on 09-02-2024 Lymphocytes Auto (Unsp spec) [#/Vol] 1.04 10*3/uL 0.83-4.51 [facility] Absolute neutrophil countOrd ered By: Bola Meraz on 09-02-2024 Neutrophils (Bld) [#/Vol] 14.0 10*3/uL High 2.0-7.7 [facility] Absolute neutrophil count 14.0 X10^3/uL High 2.0-7.7 [facility] Automated lymphocyte count a s percentage of total leukocytesOrdered By: Bola Meraz on 09-02-2024 Lymphocytes/100 WBC Auto (Unsp spec) 6.3 % Low 19-41 [facility] Basophil percentageOrdered B y: Bola Meraz on 09-02-2024 Basophils/100 WBC (Bld) 0.4 % 0-1 [facility] 0[facility]4 % [facility] Blood urea nitrogen (BUN)/cr eatinine ratioOrdered By: Bola Meraz on 09-02-2024 Urea nitrogen/Creatinine [Mass ratio] 16.9 mg/mg 10-20 [facility] Blood urea nitrogen (BUN)/creatinine ratio 16.9 RATIO 10-20 [facility] Calcium [Mass/Vol]Ordered By : Bola Meraz on 09-02-2024 Serum or plasma calcium measurement (mass/volume) 8.9 mg/dL 8.5-10.1 [facility] Carbon dioxide measurementOr dered By: Bola Meraz on 09-02-2024 CO2 [Moles/Vol] 19.0 mmol/L Low 21.0-32.0 [facility] Carbon dioxide measurement 19.0 mmol/L Low 21.0-32.0 [facility] Chloride measurementOrdered By: Bola Meraz on 09-02-2024 Chloride [Moles/Vol] 107 mmol/L 98-107 [facility] Chloride measurement 107 mmol/L 98-107 [facility] Creatinine [Mass/Vol]Ordered By: Bola Meraz on 09-02-2024 Serum or plasma creatinine measurement (mass/volume) 2.54 mg/dL High 0.70-1.30 [facility] Eosinophil percentageOrdered By: Bola Meraz on 09-02-2024 Eosinophils/100 WBC (Bld) 1.3 % 0-5 [facility] Eosinophil percentage 1.3 % 0-5 [facility] Erythrocyte distribution wid th (RBC) [Ratio]Ordered By: Bola Meraz on 09-02-2024 Erythrocyte distribution width ratio 15.7 % High 11.6-14.6 [facility] Erythrocyte distribution width standard deviation 47.0 fl High 35.1-43.9 [facility] Erythrocyte distribution wid th ratioOrdered By: Bola Meraz on 09-02-2024 Erythrocyte distribution width (RBC) [Ratio] 15.7 % High 11.6-14.6 [facility] Erythrocyte distribution wid th standard deviationOrdered By: Bola Meraz on 09-02-2024 Erythrocyte distribution width (RBC) [Entitic vol] 47.0 fL High 35.1-43.9 [facility] Erythrocyte distribution width (RBC) [Ratio] 47.0 fl High 35.1-43.9 [facility] Estimated glomerular filtrat ion rate (GFR) AmericanOrdered By: Bola Meraz on 09-02-2024 Estimated GFR (MDRD) Amer 34 mL/min Low >60 [facility] Comment on above: GFR Calc Estimated glomerular filtration rate (GFR) 34 mL/min Low >60 [facility] Estimation of creatinine carolina aranceOrdered By: Bola Meraz on 09-02-2024 Estimated Creatinine Clearance Calc 37.67 ml/min [facility] Estimation of creatinine clearance 37.67 ml/min [facility] Glomerular filtration rate ( GFR) estimationOrdered By: Bola Meraz on 09-02-2024 Estimated GFR (MDRD) Non-Af Amer 28 mL/min Low >60 [facility] Comment on above: Non- GFR Calc GFR/1.73 sq M.predicted among non-blacks MDRD (S/P/Bld) [Vol rate/Area] 28 mL/min/{1.73_m2} Low >60 [facility] Glomerular filtration rate (GFR) estimation 28 mL/min Low >60 [facility] Glucose measurementOrdered B y: Bola Meraz on 09-02-2024 Glucose [Mass/Vol] 187 mg/dL High 74-106 [facility] Comment on above: Fasting Glucose resu lt greater than or equal to 126 mg/dL suggests DIABETES MELLITUS per A.D.A. criteria. Glucose measurement 187 mg/dL [address] [facility] Glucose measurement at bedsi deOrdered By: Rick Carlin on 09-02-2024 Bedside Glucose (Misc Panel) 168 mg/dL [address] Comment on above: MANAGEMENT OF PATIEN T CARE PER NURSING PROTOCOL Glucose [Mass/Vol] 168 mg/dL [address] Glucose measurement at bedside 168 mg/dL [address] Hematocrit Auto (Bld) [Volum e fraction]Ordered By: Bola Meraz on 09-02-2024 Hematocrit (Bld) [Volume fraction] 30.8 % Low 40-54 [facility] Automated blood hematocrit (percentage) 30.8 % Low -54 [facility] Hemoglobin measurementOrdere d By: Bola Meraz on 09-02-2024 Hemoglobin (Bld) [Mass/Vol] 10.7 g/dL Low 13.0-16.5 [facility] Hemoglobin measurement 10.7 g/dL Low 13.0-16.5 [facility] Immature granulocytes/100 WB C Auto (Bld)Ordered By: Bola Meraz on 09-02-2024 Immature granulocytes/100 WBC (Bld) 1.300 % High 0.0-0.9 [facility] Comment on above: IG% - Immature Granu locytes (promyelocytes, myelocytes and metamyelocytes) > 1% indicates that a LEFT SHIFT is Present. Automated immature granulocyte percentage 1.300 % High 0.0-0.9 [facility] Lymphocytes Auto (Unsp spec) [#/Vol]Ordered By: Bola Meraz on 09-02-2024 Lymphocytes (Bld) [#/Vol] 1.04 10*3/uL 0.83-4.51 [facility] Absolute lymphocyte count 1.04 X10^3/uL 0.83-4.51 [facility] Lymphocytes/100 WBC Auto (Un sp spec)Ordered By: Bola Meraz on 09-02-2024 Lymphocytes/100 WBC (Bld) 6.3 % Low 19-41 [facility] Automated lymphocyte count as percentage of total leukocytes 6.3 % Low 19-41 [facility] MCV (RBC) [Entitic vol]Order ed By: Bola Meraz on 09-02-2024 MCV (mean corpuscular volume) determination 83.7 fL 80-94 [facility] MCV (mean corpuscular volume ) determinationOrdered By: Bola Meraz on 09-02-2024 MCV (RBC) [Entitic vol] 83.7 fL 80-94 [facility] Mean corpuscular hemoglobin (MCH) determinationOrdered By: Bola Meraz on 09-02-2024 MCH (RBC) [Entitic mass] 29.1 pg 27.0-32.0 [facility] Mean corpuscular hemoglobin (MCH) determination 29.1 pg 27.0-32.0 [facility] Mean corpuscular hemoglobin concentration (MCHC) determinationOrdered By: Bola Meraz on 09-02-2024 MCHC (RBC) [Mass/Vol] 34.7 g/dL 32-36 [facility] Mean corpuscular hemoglobin concentration (MCHC) determination 34.7 g/dL 32-36 [facility] Mean platelet volume determi nationOrdered By: Bola Meraz on 09-02-2024 Platelet mean volume (Bld) [Entitic vol] 12.8 fL High 6.2-12.0 [facility] Mean platelet volume determination 12.8 fl High 6.2-12.0 [facility] Monocyte percentageOrdered B y: Bola Meraz on 09-02-2024 Monocytes/100 WBC (Bld) 6.0 % 0-10 [facility] Monocyte percentage 6.0 % 0-10 [facility] Neutrophil percentageOrdered By: Bola Mreaz on 09-02-2024 Neutrophils/100 WBC (Bld) 84.7 % High 47-70 [facility] Neutrophil percentage 84.7 % High 47-70 [facility] Nucleated red blood cell per centageOrdered By: Bola Meraz on 09-02-2024 Nucleated RBC/100 WBC (Bld) [Ratio] 0 % 0-5 [facility] Nucleated red blood cell percentage 0 % 0-5 [facility] Platelet countOrdered By: Oliver on 09-02-2024 Platelets (Bld) [#/Vol] 82 10*3/uL Low 150-450 [facility] Platelet count 82 K/mm3 Low 150-450 [facility] Potassium measurementOrdered By: Bola Meraz on 09-02-2024 Potassium [Moles/Vol] 4.0 mmol/L 3.5-5.1 [facility] Potassium measurement 4.0 mmol/L 3.5-5.1 [facility] RBC Auto (Bld) [#/Vol]Ordere d By: Bola Meraz on 09-02-2024 RBC (Bld) [#/Vol] 3.68 10*6/uL Low 4.6-6.2 [facility] Automated blood erythrocyte count 3.68 M/mm3 Low 4.6-6.2 [facility] Serum anion gap measurementO rdered By: Bola Meraz on 09-02-2024 Anion gap [Moles/Vol] 8 mmol/L 5-15 [facility] Serum anion gap measurement 8 5-15 [facility] Serum or plasma calcium ytson urement (mass/volume)Ordered By: Bola Meraz on 09-02-2024 Calcium [Mass/Vol] 8.9 mg/dL 8.5-10.1 [facility] Serum or plasma creatinine m easurement (mass/volume)Ordered By: Bola Meraz on 09-02-2024 Creatinine [Mass/Vol] 2.54 mg/dL High 0.70-1.30 [facility] Comment on above: The validity of the calculated GFR & GFRAA in patients over 70 years has not been determined. Clinical correlation is essential. Serum or plasma urea nitroge n measurement (mass/volume)Ordered By: Bola Meraz on 09-02-2024 Urea nitrogen [Mass/Vol] 43 mg/dL High 7-18 [facility] Sodium levelOrdered By: Deanna Meraz on 09-02-2024 Sodium [Moles/Vol] 133 mmol/L Low 136-145 [facility] Sodium level 133 mmol/L Low 136-145 [facility] Urea nitrogen [Mass/Vol]Orde red By: Bola Meraz on 09-02-2024 Serum or plasma urea nitrogen measurement (mass/volume) 43 mg/dL High 7-18 [facility] White blood cell (WBC) count Ordered By: Bola Meraz on 09-02-2024 WBC (Bld) [#/Vol] 16.5 10*3/uL High 4.4-11.0 [facility] White blood cell (WBC) count 16.5 K/mm3 High 4.4-11.0 [facility] ALP [Catalytic activity/Vol] Ordered By: Maria Guadalupe Shore on 08-30-2024 Serum or plasma alkaline phosphatase measurement 143 U/L High 45-117 [facility] ALT [Catalytic activity/Vol] Ordered By: Maria Guadalupe Shore on 08-30-2024 Serum or plasma alanine aminotransferase (ALT) measurement 19 U/L 16-61 [facility] Albumin [Mass/Vol]Ordered By : Maria Guadalupe Shore on 08-30-2024 Serum or plasma albumin measurement (mass/volume) 1.9 g/dL Low 3.2-5.0 [facility] Bilirubin directOrdered By: Maria Guadalupe Shore on 08-30-2024 Bilirubin.direct [Mass/Vol] 0.83 mg/dL High 0.00-0.30 [facility] Bilirubin, totalOrdered By: Maria Guadalupe Shore on 08-30-2024 Bilirubin [Mass/Vol] 1.30 mg/dL High 0.20-1.00 [facility] Comment on above: For patients on eltr ombopag therapy, use of Dimension [place] TBIL is not recommended. Bilirubin, total 1.30 mg/dL High 0.20-1.00 [facility] Bilirubin.direct [Mass/Vol]O rdered By: Maria Guadalupe Shore on 08-30-2024 Bilirubin direct 0.83 mg/dL High 0.00-0.30 [facility] Ferritin measurementOrdered By: Maria Guadalupe Shore on 08-30-2024 Ferritin [Mass/Vol] 85 ng/mL 26-388 [facility] Ferritin measurement 85 ng/mL 388 [facility] HbA1c (Bld) [Mass fraction]O rdered By: Maria Guadalupe Shore on 08-30-2024 Hemoglobin A1c percentage 7.9 % High 3.8-5.6 [facility] Hemoglobin A1c percentageOrd ered By: Maria Guadalupe Shore on 08-30-2024 HbA1c (Bld) [Mass fraction] 7.9 % High 3.8-5.6 [facility] Comment on above: Normal < 5.7 % Predi abetic 5.7 - 6.4 % Diabetic >or= 6.5 % Please note range changes. Iron (Unsp spec) [Mass/Mass] Ordered By: Maria Guadalupe Shore on 08-30-2024 Iron [Mass/Vol] 62 ug/dL Low 65-175 [facility] Iron measurement (mass/mass) 62 ug/dL Low 65-175 [facility] Iron measurement (mass/mass) Ordered By: Maria Guadalupe Shore on 08-30-2024 Iron (Unsp spec) [Mass/Mass] 62 ug/dL Low 65-175 [facility] Iron saturation [Mass fracti on]Ordered By: Maria Guadalupe Shore on 08-30-2024 Iron Saturation 33.9 % 15.0-55.0 [facility] Serum or plasma iron saturation measurement (mass fraction) 33.9 % 15.0-55.0 [facility] Laboratory - Chemistry and C hemistry - challengeOrdered By: Maria Guadalupe Shore on 08-30-2024 AST [Catalytic activity/Vol] 22 U/L [facility] No Panel InformationOrdered By: Maria Guadalupe Shore on 08-30-2024 22 U/L 37 [facility] Serum globulin measurementOr dered By: Maria Guadalupe Shore on 08-30-2024 Globulin (S) [Mass/Vol] 3.4 g/dL 2.2-4.2 [facility] Serum globulin measurement 3.4 g/dL 2.2-4.2 [facility] Serum or plasma alanine thomas otransferase (ALT) measurementOrdered By: Maria Guadalupe Shore on 08-30-2024 ALT [Catalytic activity/Vol] 19 U/L 16-61 [facility] Serum or plasma albumin tyson urement (mass/volume)Ordered By: Maria Guadalupe Shore on 08-30-2024 Albumin [Mass/Vol] 1.9 g/dL Low 3.2-5.0 [facility] Serum or plasma alkaline kendrick sphatase measurementOrdered By: Maria Guadalupe Shore on 08-30-2024 ALP [Catalytic activity/Vol] 143 U/L High 45-117 [facility] Serum or plasma iron saturat ion measurement (mass fraction)Ordered By: Maria Guadalupe Shore on 08-30-2024 Iron saturation [Mass fraction] 33.9 % 15.0-55.0 [facility] TIBCOrdered By: Maria Guadalupe Shore on 08-30-2024 Total Iron Binding Capacity 183 ug/dL Low 250-450 [facility] TIBC 183 ug/dL Low 250-450 [facility] Total proteinOrdered By: Caryl Shore on 08-30-2024 Protein [Mass/Vol] 5.3 g/dL Low 6.4-8.2 [facility] Total protein 5.3 g/dL Low 6.4-8.2 [facility] Venous blood ammonia measure mentOrdered By: Maria Guadalupe Shore on 08-30-2024 Ammonia (P) [Moles/Vol] 64.0 umol/L High 11-32 [facility] Venous blood ammonia measurement 64.0 umol/L High 11-32 [facility] Activated partial thrombopla stin time (aPTT) in platelet poor plasma by coagulation aOrdered By: Luis Carlos Anderson on 08-29-2024 aPTT Coag (PPP) [Time] 40.9 s High 24.1-36.2 [facility] Albumin to globulin ratioOrd ered By: Luis Carlos Anderson on 08-29-2024 Albumin/Globulin [Mass ratio] 0.4 {ratio} Low 0.9-2.4 [facility] Albumin to globulin ratio 0.4 RATIO Low 0.9-2.4 [facility] Bacteria LM.HPF (Urine sed) [#/Area]Ordered By: Luis Carlos Anderson on 08-29-2024 Urine Bacteria RARE /hpf None Seen [facility] Urine sediment bacteria count by microscopy (number/high power field) RARE /hpf None Seen [facility] Bilirubin Test strip Ql (U)O rdered By: Luis Carlos Anderson on 08-29-2024 Bilirubin Ql (U) 1 mg/dL High Negative [facility] Comment on above: COLOR OF URINE MAY A FFECT DIPSTICK RESULTS. Clarity (U)Ordered By: Juan Alberto Anderson on 08-29-2024 Urine clarity Clear Clear [facility] Color (U)Ordered By: Luis Carlos Anderson on 08-29-2024 Urine color determination Yellow Yellow [facility] Creatinine (U) [Mass/Vol]Ord ered By: Maria Guadalupe Shore on 08-29-2024 Urine creatinine measurement (mass/volume) 173.00 mg/dL NO RANGE EST. [facility] Epithelial cells.squamous LM Ql (Urine sed)Ordered By: Luis Carlos Anderson on 08-29-2024 Epithelial cells.squamous LM.HPF (Urine sed) [#/Area] 0 /[HPF] 0-5 [facility] Squamous epithelial cells detection in urine sediment by light microscopy 0 SEEN /hpf 0-5 [facility] Glucose Ql (U)Ordered By: Yaya Anderson on 08-29-2024 Glucose (U) [Mass/Vol] 50 mg/dL High Normal [facility] Urine glucose detection 50 mg/dl High Normal [facility] International normalized rat io (INR) calculationOrdered By: Luis Carlos Anderson on 08-29-2024 INR Coag (Bld) [Relative time] 1.7 {INR} [facility] International normalized ratio (INR) calculation 1.7 [facility] Ketones Test strip Ql (U)Ord ered By: Luis Carlos Anderson on 08-29-2024 Ketones Ql (U) Negative Negative [facility] Leukocyte esterase Test stri p Ql (U)Ordered By: Luis Carlos Anderson on 08-29-2024 Urine leukocyte esterase detection by dipstick 500 /ul High Negative [facility] Lipase measurementOrdered By : Luis Carlos Anderson on 08-29-2024 Lipase [Catalytic activity/Vol] 26 U/L [facility] Comment on above: Please note:LIPASE r evised reference range effective 22. New Lipase methodology. Expected to produce lower values than the previous assay method. NEW Reference Range: 13 - 75 U/L Lipase measurement 26 U/L -75 [facility] Magnesium measurementOrdered By: Maria Guadalupe Shore on 08-29-2024 Magnesium [Mass/Vol] 2.7 mg/dL High 1.6-2.6 [facility] Magnesium measurement 2.7 mg/dL High 1.6-2.6 [facility] Microscopic analysis of urin e for red blood cells (RBC)Ordered By: Luis Carlos Anderson on 08-29-2024 Urine RBC 5-10 SEEN /hpf 0-5 [facility] Microscopic analysis of urine for red blood cells (RBC) 5-10 SEEN /hpf 0-5 [facility] Mucus LM Ql (Urine sed)Order ed By: Luis Carlos Anderson on 08-29-2024 Mucus Ql (Urine sed) 1+ /hpf [facility] Mucus detection in urine sediment by light microscopy 1+ /hpf [facility] Nitrite Test strip Ql (U)Ord ered By: Luis Carlos Anderson on 08-29-2024 Nitrite Ql (U) Negative Negative [facility] Phosphorus measurementOrdere d By: Maria Guadalupe Shore on 08-29-2024 Phosphorus Level 4.9 mg/dL 2.5-4.9 [facility] Phosphorus measurement 4.9 mg/dL 2.5-4.9 [facility] Protein Test strip Ql (U)Ord ered By: Luis Carlos Anderson on 08-29-2024 Protein Ql (U) 30 mg/dl High Negative [facility] Urine protein assay by test strip, semi-quantitative 30 mg/dl High Negative [facility] Prothrombin timeOrdered By: Luis Carlos Anderson on 08-29-2024 PT Coag (PPP) [Time] 20.0 s High 11.7-14.9 [facility] Prothrombin time 20.0 SECONDS High 11.7-14.9 [facility] Sodium urOrdered By: Maria Guadalupe Shore on 08-29-2024 Sodium (U) [Moles/Vol] 30 mmol/L Not Establ. [facility] Sodium [Moles/Vol] 30 mmol/L Not Establ. [facility] Sodium ur 30 mmol/L Not Establ. [facility] Specific gravity (U) [Rel de nsity]Ordered By: Luis Carlos Anderson on 08-29-2024 Urine specific gravity measurement 1.015 1.002-1.030 [facility] Squamous epithelial cells de tection in urine sediment by light microscopyOrdered By: Luis Carlos Anderson on 08-29-2024 Epithelial cells.squamous LM Ql (Urine sed) 0 SEEN /hpf 0-5 [facility] Urine blood detectionOrdered By: Luis Carlos Anderson on 08-29-2024 Urine Occult Blood 150 /ul High Negative [facility] Urine blood detection 150 /ul High Negative [facility] Urine clarityOrdered By: Joann Anderson on 08-29-2024 Clarity (U) Clear Clear [facility] Urine color determinationOrd ered By: Luis Carlos Anderson on 08-29-2024 Color (U) Yellow Yellow [facility] Urine creatinine measurement (mass/volume)Ordered By: Maria Guadalupe White on 08-29-2024 Creatinine (U) [Mass/Vol] 173.00 mg/dL NO RANGE EST. [facility] Urine cultureOrdered By: Joann Anderson on 08-29-2024 Bacteria identified Cx Nom (U) Culture exhibits no growth. [facility] Urine culture Culture exhibits no growth. [facility] Urine glucose detectionOrder ed By: Luis Carlos Anderson on 08-29-2024 Glucose Ql (U) 50 mg/dl High Normal [facility] Urine ketones detection by t est stripOrdered By: Luis Carlos Anderson on 08-29-2024 Urine ketones detection by test strip Negative Negative [facility] Urine leukocyte esterase det ection by dipstickOrdered By: Luis Carlos Anderson on 08-29-2024 Leukocyte esterase Test strip Ql (U) 500 /ul High Negative [facility] Urine pHOrdered By: Luis Carlos hammond on 08-29-2024 pH (U) 6.0 [pH] 5.0 - 8.0 [facility] Urine sediment bacteria coun t by microscopy (number/high power field)Ordered By: Luis Carlos Anderson on 08-29-2024 Bacteria LM.HPF (Urine sed) [#/Area] RARE /hpf None Seen [facility] Urine specific gravity measu rementOrdered By: Luis Carlos Anderson on 08-29-2024 Specific gravity (U) [Rel density] 1.015 1.002-1.030 [facility] Urine total bilirubin detect ion by test stripOrdered By: Luis Carlos Anderson on 08-29-2024 Urine total bilirubin detection by test strip 1 mg/dL High Normal [facility] Urine urobilinogen measureme ntOrdered By: Luis Carlos Anderson on 08-29-2024 Urobilinogen Ql (U) 1 mg/dl High Normal [facility] Urobilinogen Ql (U)Ordered B y: Luis Carlos Anderson on 08-29-2024 Urobilinogen (U) [Mass/Vol] 1 mg/dL High Normal [facility] White blood cell countOrdere d By: Luis Carlos Anderson on 08-29-2024 Urine WBC 10-25 SEEN /hpf 0-5 [facility] White blood cell count 10-25 SEEN /hpf 0-5 [facility] White blood cell count 10-25 SEEN /hpf 0-5 [facility] aPTT Coag (PPP) [Time]Ordere d By: Luis Carlos Anderson on 08-29-2024 aPTT Coag (Bld) [Time] 40.9 s High 24.1-36.2 [facility] Activated partial thromboplastin time (aPTT) in platelet poor plasma by coagulation a 40.9 Seconds High 24.1-36.2 [facility] pH (U)Ordered By: Ashu on 08-29-2024 Urine pH 6.0 5.0 - 8.0 [facility] Vital Signs Date Time Vital Sign Value Performing Clinician Facility 01-21-2025 13:00-0400 Body temperature 97.7 [degF] No Primary Care Physician [facility] 01-21-2025 13:00-0400 Diastolic blood pressure 60 mm[Hg] No Primary Care Physician [facility] 01-21-2025 13:00-0400 Heart rate 91 /min No Primary Care Physician [facility] 01-21-2025 13:00-0400 Respiratory rate 18 /min No Primary Care Physician [facility] 01-21-2025 13:00-0400 SaO2% (BldA) [Mass fraction] 97 % No Primary Care Physician [facility] 01-21-2025 13:00-0400 Systolic blood pressure 100 mm[Hg] No Primary Care Physician [facility] 01-21-2025 05:13-0400 Body mass index (BMI) [Ratio] 35.8 kg/m2 No Primary Care Physician [facility] 01-21-2025 05:13-0400 Body weight 110.1 kg No Primary Care Physician [facility] 01-17-2025 14:51-0400 Body height 175.26 cm No Primary Care Physician [facility] 01-09-2025 14:01-0400 Heart rate 69 /min No Primary Care Physician [facility] 01-09-2025 14:01-0400 Respiratory rate 16 /min No Primary Care Physician [facility] 01-09-2025 14:01-0400 SaO2% (BldA) [Mass fraction] 100 % No Primary Care Physician [facility] 01-09-2025 14:00-0400 Diastolic blood pressure 59 mm[Hg] No Primary Care Physician [facility] 01-09-2025 14:00-0400 Systolic blood pressure 107 mm[Hg] No Primary Care Physician [facility] 01-09-2025 13:04-0400 Body temperature 98 [degF] No Primary Care Physician [facility] 01-09-2025 10:10-0400 Body height 175.26 cm No Primary Care Physician [facility] 01-09-2025 10:10-0400 Body mass index (BMI) [Ratio] 29.5 kg/m2 No Primary Care Physician [facility] 01-09-2025 10:10-0400 Body weight 90.6 kg No Primary Care Physician [facility] 01-05-2025 16:00-0400 Body temperature 98.1 [degF] No Primary Care Physician [facility] 01-05-2025 16:00-0400 Diastolic blood pressure 60 mm[Hg] No Primary Care Physician [facility] 01-05-2025 16:00-0400 Heart rate 73 /min No Primary Care Physician [facility] 01-05-2025 16:00-0400 Respiratory rate 16 /min No Primary Care Physician [facility] 01-05-2025 16:00-0400 SaO2% (BldA) [Mass fraction] 94 % No Primary Care Physician [facility] 01-05-2025 16:00-0400 Systolic blood pressure 103 mm[Hg] No Primary Care Physician [facility] 01-05-2025 04:44-0400 Body mass index (BMI) [Ratio] 29.9 kg/m2 No Primary Care Physician [facility] 01-05-2025 04:44-0400 Body weight 92.2 kg No Primary Care Physician [facility] 01-02-2025 10:11-0400 Body height 175.26 cm No Primary Care Physician [facility] 01-02-2025 06:34-0400 Body temperature 97.8 [degF] No Primary Care Physician [facility] 01-02-2025 06:34-0400 Diastolic blood pressure 73 mm[Hg] No Primary Care Physician [facility] 01-02-2025 06:34-0400 Heart rate 68 /min No Primary Care Physician [facility] 01-02-2025 06:34-0400 Respiratory rate 20 /min No Primary Care Physician [facility] 01-02-2025 06:34-0400 SaO2% (BldA) [Mass fraction] 100 % No Primary Care Physician [facility] 01-02-2025 06:34-0400 Systolic blood pressure 105 mm[Hg] No Primary Care Physician [facility] 01-02-2025 02:59-0400 Body height 175.26 cm No Primary Care Physician [facility] 01-02-2025 02:59-0400 Body mass index (BMI) [Ratio] 27.5 kg/m2 No Primary Care Physician [facility] 01-02-2025 02:59-0400 Body weight 84.5 kg No Primary Care Physician [facility] 12-30-2024 05:24-0400 Body temperature 97.9 [degF] No Primary Care Physician [facility] 12-30-2024 05:24-0400 Diastolic blood pressure 52 mm[Hg] No Primary Care Physician [facility] 12-30-2024 05:24-0400 Heart rate 71 /min No Primary Care Physician [facility] 12-30-2024 05:24-0400 Respiratory rate 18 /min No Primary Care Physician [facility] 12-30-2024 05:24-0400 SaO2% (BldA) [Mass fraction] 93 % No Primary Care Physician [facility] 12-30-2024 05:24-0400 Systolic blood pressure 93 mm[Hg] No Primary Care Physician [facility] 12-30-2024 01:07-0400 Body height 175.26 cm No Primary Care Physician [facility] 12-30-2024 01:07-0400 Body mass index (BMI) [Ratio] 28.4 kg/m2 No Primary Care Physician [facility] 12-30-2024 01:07-0400 Body weight 87.3 kg No Primary Care Physician [facility] 12-26-2024 14:27-0400 Body temperature 97 [degF] No Primary Care Physician [facility] 12-26-2024 14:27-0400 Diastolic blood pressure 58 mm[Hg] No Primary Care Physician [facility] 12-26-2024 14:27-0400 Heart rate 64 /min No Primary Care Physician [facility] 12-26-2024 14:27-0400 Respiratory rate 16 /min No Primary Care Physician [facility] 12-26-2024 14:27-0400 SaO2% (BldA) [Mass fraction] 97 % No Primary Care Physician [facility] 12-26-2024 14:27-0400 Systolic blood pressure 90 mm[Hg] No Primary Care Physician [facility] 12-26-2024 10:00-0400 Body height 175.26 cm No Primary Care Physician [facility] 12-26-2024 10:00-0400 Body mass index (BMI) [Ratio] 29.7 kg/m2 No Primary Care Physician [facility] 12-26-2024 10:00-0400 Body weight 91.4 kg No Primary Care Physician [facility] 12-02-2024 12:13-0400 Body temperature 98.7 [degF] No Primary Care Physician [facility] 12-02-2024 12:13-0400 Diastolic blood pressure 68 mm[Hg] No Primary Care Physician [facility] 12-02-2024 12:13-0400 Heart rate 86 /min No Primary Care Physician [facility] 12-02-2024 12:13-0400 Respiratory rate 18 /min No Primary Care Physician [facility] 12-02-2024 12:13-0400 SaO2% (BldA) [Mass fraction] 97 % No Primary Care Physician [facility] 12-02-2024 12:13-0400 Systolic blood pressure 117 mm[Hg] No Primary Care Physician [facility] 12-02-2024 02:57-0400 Body mass index (BMI) [Ratio] 33 kg/m2 No Primary Care Physician [facility] 12-02-2024 02:57-0400 Body weight 101.6 kg No Primary Care Physician [facility] 11-29-2024 09:53-0400 Body height 175.26 cm No Primary Care Physician [facility] 11-25-2024 18:31-0400 Body temperature 98.2 [degF] No Primary Care Physician [facility] 11-25-2024 18:31-0400 Diastolic blood pressure 80 mm[Hg] No Primary Care Physician [facility] 11-25-2024 18:31-0400 Heart rate 97 /min No Primary Care Physician [facility] 11-25-2024 18:31-0400 Respiratory rate 18 /min No Primary Care Physician [facility] 11-25-2024 18:31-0400 SaO2% (BldA) [Mass fraction] 98 % No Primary Care Physician [facility] 11-25-2024 18:31-0400 Systolic blood pressure 122 mm[Hg] No Primary Care Physician [facility] 11-24-2024 15:17-0400 Body weight 102.7 kg No Primary Care Physician [facility] 11-21-2024 05:32-0400 Body mass index (BMI) [Ratio] 33.4 kg/m2 No Primary Care Physician [facility] 11-21-2024 05:00-0400 Heart rate 77 /min No Primary Care Physician [facility] 11-21-2024 04:51-0400 Body temperature 98.2 [degF] No Primary Care Physician [facility] 11-21-2024 04:51-0400 Diastolic blood pressure 57 mm[Hg] No Primary Care Physician [facility] 11-21-2024 04:51-0400 Respiratory rate 16 /min No Primary Care Physician [facility] 11-21-2024 04:51-0400 SaO2% (BldA) [Mass fraction] 97 % No Primary Care Physician [facility] 11-21-2024 04:51-0400 Systolic blood pressure 127 mm[Hg] No Primary Care Physician [facility] 11-21-2024 01:32-0400 Body height 175.26 cm No Primary Care Physician [facility] 11-21-2024 01:32-0400 Body mass index (BMI) [Ratio] 34.3 kg/m2 No Primary Care Physician [facility] 11-21-2024 01:32-0400 Body weight 105.4 kg No Primary Care Physician [facility] 11-12-2024 18:03-0400 SaO2% (BldA) [Mass fraction] 99 % KATHIE LEMOS [facility] Comment on above: Order Comment: Specimen Type: ARTERIAL B LOOD SPECIMENOrdering Facility: [facility] Address: [address] [place] [address] Performed By: #### A LLBG ####[facility] [id number] [place] [address] [place] 11-10-2024 23:40-0400 Body temperature 97.8 [degF] No Primary Care Physician [facility] 11-10-2024 23:40-0400 Diastolic blood pressure 70 mm[Hg] No Primary Care Physician [facility] 11-10-2024 23:40-0400 Heart rate 110 /min No Primary Care Physician [facility] 11-10-2024 23:40-0400 Respiratory rate 18 /min No Primary Care Physician [facility] 11-10-2024 23:40-0400 SaO2% (BldA) [Mass fraction] 97 % No Primary Care Physician [facility] 11-10-2024 23:40-0400 Systolic blood pressure 116 mm[Hg] No Primary Care Physician [facility] 11-10-2024 04:54-0400 Body mass index (BMI) [Ratio] 36.7 kg/m2 No Primary Care Physician [facility] 11-10-2024 04:54-0400 Body weight 112.8 kg No Primary Care Physician [facility] 11-09-2024 14:30-0400 Body height 175.26 cm No Primary Care Physician [facility] 10-29-2024 01:23-0400 Body temperature 97.4 [degF] No Primary Care Physician [facility] 10-29-2024 01:23-0400 Diastolic blood pressure 54 mm[Hg] No Primary Care Physician [facility] 10-29-2024 01:23-0400 Heart rate 77 /min No Primary Care Physician [facility] 10-29-2024 01:23-0400 Respiratory rate 14 /min No Primary Care Physician [facility] 10-29-2024 01:23-0400 SaO2% (BldA) [Mass fraction] 97 % No Primary Care Physician [facility] 10-29-2024 01:23-0400 Systolic blood pressure 97 mm[Hg] No Primary Care Physician [facility] 10-28-2024 21:43-0400 Body mass index (BMI) [Ratio] 30.4 kg/m2 No Primary Care Physician [facility] 10-28-2024 21:43-0400 Body weight 93.1 kg No Primary Care Physician [facility] 10-28-2024 17:13-0400 Body height 175.01 cm No Primary Care Physician [facility] 10-04-2024 21:45-0500 Diastolic blood pressure 89 mm[Hg] Maurice wen MD Work Phone: [facility] 10-04-2024 21:45-0500 Heart rate 94 /min Maurice Fitch MD Work Phone: [facility] 10-04-2024 21:45-0500 Respiratory rate 18 /min Maurice Fitch MD Work Phone: [facility] 10-04-2024 21:45-0500 SaO2% (BldA) [Mass fraction] 100 % Maurice Fitch MD Work Phone: [facility] 10-04-2024 21:45-0500 Systolic blood pressure 152 mm[Hg] Maurice parada MD Work Phone: [facility] 10-04-2024 12:03-0500 Body temperature 97.59 [degF] Maurice Fitch MD Work Phone: [facility] 10-04-2024 12:03-0500 Body weight 117.48 kg Maurice Fitch MD Work Phone: [facility] 09-29-2024 10:21-0500 Body temperature 97.3 [degF] No Primary Care Physician [facility] 09-29-2024 10:21-0500 Diastolic blood pressure 74 mm[Hg] No Primary Care Physician [facility] 09-29-2024 10:21-0500 Heart rate 81 /min No Primary Care Physician [facility] 09-29-2024 10:21-0500 Respiratory rate 18 /min No Primary Care Physician [facility] 09-29-2024 10:21-0500 Systolic blood pressure 138 mm[Hg] No Primary Care Physician [facility] 09-15-2024 03:49-0500 Body temperature 97.8 [degF] No Primary Care Physician [facility] 09-15-2024 03:49-0500 Diastolic blood pressure 70 mm[Hg] No Primary Care Physician [facility] 09-15-2024 03:49-0500 Heart rate 80 /min No Primary Care Physician [facility] 09-15-2024 03:49-0500 Respiratory rate 17 /min No Primary Care Physician [facility] 09-15-2024 03:49-0500 SaO2% (BldA) [Mass fraction] 96 % No Primary Care Physician [facility] 09-15-2024 03:49-0500 Systolic blood pressure 142 mm[Hg] No Primary Care Physician [facility] 09-14-2024 04:07-0500 Body mass index (BMI) [Ratio] 36.7 kg/m2 No Primary Care Physician [facility] 09-14-2024 04:07-0500 Body weight 112.8 kg No Primary Care Physician [facility] 09-10-2024 14:03-0500 Body height 175.26 cm No Primary Care Physician [facility] 09-07-2024 01:24-0500 Inhaled oxygen concentration 21 % No Primary Care Physician [facility] 09-06-2024 05:00-0500 Inhaled oxygen flow rate 8 L/min No Primary Care Physician [facility] 09-02-2024 15:36-0500 Body weight 104 kg No Primary Care Physician [facility] 09-02-2024 14:54-0500 Body temperature 98.1 [degF] No Primary Care Physician [facility] 09-02-2024 14:54-0500 Diastolic blood pressure 62 mm[Hg] No Primary Care Physician [facility] 09-02-2024 14:54-0500 Heart rate 60 /min No Primary Care Physician [facility] 09-02-2024 14:54-0500 Respiratory rate 18 /min No Primary Care Physician [facility] 09-02-2024 14:54-0500 SaO2% (BldA) [Mass fraction] 99 % No Primary Care Physician [facility] 09-02-2024 14:54-0500 Systolic blood pressure 118 mm[Hg] No Primary Care Physician [facility] 09-02-2024 03:57-0500 Body mass index (BMI) [Ratio] 33.8 kg/m2 No Primary Care Physician [facility] 08-21-2024 16:33-0500 Body temperature 98.5 [degF] No Primary Care Physician [facility] 08-21-2024 16:33-0500 Diastolic blood pressure 78 mm[Hg] No Primary Care Physician [facility] 08-21-2024 16:33-0500 Heart rate 61 /min No Primary Care Physician [facility] 08-21-2024 16:33-0500 Respiratory rate 12 /min No Primary Care Physician [facility] 08-21-2024 16:33-0500 SaO2% (BldA) [Mass fraction] 97 % No Primary Care Physician [facility] 08-21-2024 16:33-0500 Systolic blood pressure 114 mm[Hg] No Primary Care Physician [facility] 08-21-2024 13:52-0500 Body mass index (BMI) [Ratio] 33 kg/m2 No Primary Care Physician [facility] 08-21-2024 13:52-0500 Body weight 101.5 kg No Primary Care Physician [facility] Encounters Encounter Date Encounter Type Care Provider Facility Start: 01-21-2025 Dr. Anurag Murray [facility] Inpatient Physicians Work Phone: Start: 01-20-2025 Dr. Anurag Murray [facility] Inpatient Physicians Work Phone: Start: 01-19-2025 Dr. Anurag Irene MD -[facility] Inpatient Physicians Work Phone: Start: 01-18-2025 Dr. Anurag Irene MD [facility] Inpatient [facility]icians Work Phone: Start: 01-17-2025 Dr. Anurag Irene MD [facility] In[facility] Work Phone: Start: 01-16-2025 Dr. Cielo Tovar MD [facility] Inpatient Physicians Work Phone: Start: 01-15-2025 Dr. Cielo Tovar MD [facility] In[facility] Work Phone: Start: 01-14-2025 Dr. Cielo Tovar MD [facility] In[facility] Work Phone: Start: 01-13-2025 Dr. Cielo Tovar MD [facility] In[facility] Work Phone: Start: 01-12-2025 Dr. Cielo Tovar MD [facility] Work Phone: Start: 01-11-2025 Dr. Jefferson Malave MD - [facility] Start: 01-11-2025 Dr. Cielo Tovar MD [facility] Inpatient [facility] Work Phone: Start: 01-11-2025 Dr. Bola Meraz DO [facility] Start: 01-10-2025 Dr. Cielo Tovar MD [facility] Inpatient [facility]icians Work Phone: Start: 01-09-2025 ambulatory Yaritza Leo Facility:[facility] Start: 01-09-2025 End: 01-21-2025 Evaluation and management of inpatient No Primary Care Physician [facility] Work Phone: Start: 01-09-2025 End: 01-21-2025 Dr. Yaritza Leo DO -Intensive Care Unit Work Phone: Start: 01-05-2025 Dr. Hill Acuña MD [facility] Inpatient Physicians Work Phone: Start: 01-04-2025 Dr. Hill Acuña MD -[facility] Work Phone: Start: 01-03-2025 Dr. Hill Acuña MD [facility] Work Phone: Start: 01-02-2025 ambulatory Buster Fuchs Fac ility:[facility] Start: 01-02-2025 End: 01-05-2025 Evaluation and management of inpatient No Primary Care Physician [facility] Work Phone: Start: 01-02-2025 End: 01-05-2025 Dr. Buster Fuchs MD -Progressive Care Unit Work Phone: Start: 12-30-2024 End: 12-30-2024 No Primary Care Physician -Emergency Department Work Phone: Start: 12-30-2024 End: 12-30-2024 Emergency department patient visit No Primary Care Physician [facility] Work Phone: Start: 12-26-2024 End: 12-26-2024 No Primary Care Physician -Emergency Department Work Phone: Start: 12-26-2024 End: 12-26-2024 Emergency department patient visit No Primary Care Physician [facility] Work Phone: Start: 12-15-2024 End: 12-15-2024 ambulatory No Primary Care Physician [facility] Work Phone: Start: 12-15-2024 End: 12-15-2024 Joys Elias DIRECTOR INSTRUMENTATION-C -Ultrasound [facility] Work Phone: Start: 12-15-2024 End: 12-15-2024 ambulatory Josy Elias Facility:[facility] Start: 12-07-2024 End: 12-10-2024 ambulatory Eva Pichardo MD Work Phone: Urology Start: 12-07-2024 End: 12-07-2024 Josy Elias NP-C -[facility] Start: 12-07-2024 End: 12-07-2024 ambulatory Josy Elias Facility:[facility] Start: 12-02-2024 Dr. Hill Acuña MD [facility] Work Phone: Start: 12-01-2024 Dr. Hill Acuña MD [facility] Work Phone: Start: 11-30-2024 Dr. Hill Acuña MD [facility] Work Phone: Start: 11-29-2024 Dr. Hill Acuña MD [facility] Work Phone: Start: 11-28-2024 ambulatory Kathie Lemos Facility[facility] Start: 11-28-2024 End: 12-02-2024 Evaluation and management of inpatient Kathie Lemos Facility:[facility] Start: 11-28-2024 End: 12-02-2024 Dr. Hill Acuña MD -[facility] Work Phone: Start: 11-25-2024 Dr. Anurag Irene MD -[facility] Inpatient Physicians Work Phone: Start: 11-24-2024 Dr. Anurag Irene MD -[facility] Inpatient Physicians Work Phone: Start: 11-23-2024 ambulatory Jae Ash Fac ility:[facility] Start: 11-23-2024 End: 11-25-2024 Evaluation and management of inpatient Jae Ash Facility:[facility] Start: 11-23-2024 End: 11-25-2024 Dr. Anurag Irene MD -[facility] Work Phone: Start: 11-22-2024 Dr. Anurag Irene MD -[facility] Inpatient [facility] Work Phone: Start: 11-21-2024 ambulatory Jae Ash Fac ility:[facility] Start: 11-21-2024 observation encounter No Prima ry Care Physician [facility] Work Phone: Start: 11-21-2024 Dr. Jae Ash DO -[facility] Work Phone: Start: 11-18-2024 Patient encounter status Jeremi Abreu RN Work Phone: [facility] Work Phone: Start: 11-18-2024 End: 11-18-2024 Telephone encounter Jeremi Abreu RN Work Phone: Transplant Center Comment on above: Outcome Liver Transp lant Selection Committee Start: 11-15-2024 End: 11-15-2024 Evaluation and management of inpatient Izabela Harvey DDS Work Phone: Dentistry Comment on above: Liver transplant can didate (Primary Dx); Pre-operative clearance Start: 11-15-2024 End: 11-15-2024 Preoperative state Izabela Harvey DDS Work Phone: [facility] Start: 11-15-2024 End: 11-15-2024 Social Work Marah Claroswellington SENIOR QA ENGINEER Work Phone: Transplant Center Start: 11-12-2024 End: 11-12-2024 Patient encounter status Lizett Thomas [facility] Start: 11-12-2024 End: 11-12-2024 Orders Only Liver Txp Coordinator Work Phone: Transplant Center Comment on above: Metabolic dysfunctio n-associated steatohepatitis (MASH) (Primary Dx) Transplant Evaluatio n Consent Patient Education (T ransplant) Liver transplant can didate (Primary Dx); Metabolic dysfunction-associated steatohepatitis (MASH) Start: 11-11-2024 End: 11-18-2024 Evaluation and management of inpatient KATHIE LEMOS Facility:[facility] Start: 11-10-2024 Dr. Kathie Weiss henrry [facility] Phys[facility] Work Phone: Start: 11-09-2024 Dr. Kathie Lemos MD -[facility] Work Phone: Start: 11-08-2024 Dr. Kathie Lemos MD -[facility] Work Phone: Start: 11-07-2024 Dr. Hill Acuña MD -[facility] Work Phone: Start: 11-06-2024 Dr. Hill Acuña MD -Wo [facility] Work Phone: Start: 11-05-2024 Dr. Hill Acuña MD -[facility] Inpatient Physicians Work Phone: Start: 11-04-2024 Dr. Hill Acuña MD -[facility] Inpatient Physicians Work Phone: Start: 11-03-2024 Dr. Hill Acuña MD -[facility] Inpatient [facility] Work Phone: Start: 11-02-2024 Dr. Hill Acuña MD -[facility] Inpatient Physicians Work Phone: Start: 11-01-2024 Dr. Hill Acuña MD -[facility] Inpatient Physicians Work Phone: Start: 11-01-2024 [facility] Start: 10-31-2024 Dr. Buster Fuchs MD -[place] [facility] Work Phone: Start: 10-30-2024 [facility] Start: 10-30-2024 Dr. Buster Fuchs MD -[place] [facility] Work Phone: Start: 10-29-2024 Dr. Bola Meraz [facility] Start: 10-29-2024 ambulatory [facility] Facility :[facility] Start: 10-29-2024 End: 11-11-2024 Evaluation and management of inpatient Dr. Hill Caro DO -Intensive Care Unit Work Phone: Start: 10-29-2024 End: 11-11-2024 Dr. Kathie Lemos MD -Progressive Care Unit Work Phone: Start: 10-19-2024 ambulatory No Primary Car e Physician Facility:[facility] Start: 10-04-2024 End: 10-04-2024 Emergency department patient visit MAURICE FITCH [facility] Emergency Medicine Comment on above: Other ascites (Prima ry Dx); Abdominal pain, generalized; Other cirrhosis of liver; Peripheral edema; Coagulopathy (Multi); Hyperbilirubinemia; Cirrhosis of liver with ascites, unspecified hepatic cirrhosis type (Multi) Start: 09-29-2024 ambulatory No Primary Car e Physician Facility:[facility] Start: 09-29-2024 Non-patient / Non-visit Jasmine nunez DIRECTOR INSTRUMENTATION-C -[facility] Start: 09-29-2024 Jasmine Morocho DIRECTOR INSTRUMENTATION-C - [facility] Start: 09-29-2024 End: 09-29-2024 ambulatory No Primary Care Physician [facility] Work Phone: Start: 09-29-2024 End: 09-29-2024 Patient encounter procedure No Primary Care Physician -Ultrasound, [facility] Work Phone: Start: 09-29-2024 End: 09-29-2024 No Primary Care Physician -Ultrasound, [facility] Work Phone: Start: 09-29-2024 End: 09-29-2024 ambulatory No Primary Care Physician Facility:[facility] Start: 09-14-2024 Non-patient / Non-visit Dr. Boone James [facility] Inpatient Physicians Work Phone: Start: 09-14-2024 Dr. Boone Izquierdo [facility] Inpatient Physicians Work Phone: Start: 09-13-2024 Non-patient / Non-visit Dr. Boone James [facility] Inpatient Physicians Work Phone: Start: 09-13-2024 Dr. Boone Izquierdo [facility] In[facility] Phys[facility] Work Phone: Start: 09-12-2024 Non-patient / Non-visit Dr. Noonan [facility] Inpatient Physicians Work Phone: Start: 09-12-2024 Dr. Jae Ash [facility] Inpatient Physicians Work Phone: Start: 09-11-2024 Non-patient / Non-visit Dr. Noonan [facility] Inpatient Physicians Work Phone: Start: 09-11-2024 Dr. Jae Ash [facility] Inpatient Physicians Work Phone: Start: 09-10-2024 Non-patient / Non-visit Dr. Noonan [facility] Inpatient Physicians Work Phone: Start: 09-10-2024 Dr. Jae Ash [facility] Inpatient Physicians Work Phone: Start: 09-09-2024 Non-[facility] / [facility] Work Phone: Start: 09-09-2024 Dr. Jae Ash [facility] Inpatient Physicians Work Phone: Start: 09-08-2024 Non-patient / Non-visit Dr. Anurag Irene [facility] Inpatient Physicians Work Phone: Start: 09-08-2024 Dr. Anurag Irene MD [facility] Inpatient Physicians Work Phone: Start: 09-07-2024 Non-patient / Non-visit Dr. Anurag Irene MD [facility] Inpatient Physicians Work Phone: Start: 09-07-2024 Dr. Anurag Irene MD [facility] Inpatient Physicians Work Phone: Start: 09-06-2024 Non-patient / Non-visit Dr. Anurag Irene [facility] Inpatient Physicians Work Phone: Start: 09-06-2024 Dr. Anurag Irene MD [facility] Inpatient Physicians Work Phone: Start: 09-05-2024 ambulatory Hill [facility] Fac[facility] ty:[facility] Start: 09-05-2024 End: 09-15-2024 Evaluation and management of inpatient Dr. Boone Izquierdo DO -Progressive Care Unit Work Phone: Start: 09-05-2024 End: 09-15-2024 Dr. Boone Izquierdo DO -Progressive Care Unit Work Phone: Start: 09-02-2024 Non-patient / Non-visit Dr. Lissette Carlin [facility] Inpatient Physicians Work Phone: Start: 09-02-2024 Dr. Rick gutierrez [facility] Inpatient Physicians Work Phone: Start: 09-01-2024 Non-patient / Non-visit Niranjan Frie nd DO -[facility] Start: 09-01-2024 Niranjan Friend DO -[facility] Start: 09-01-2024 Non-patient / Non-visit Dr. Lissette Carlin [facility] Inpatient Physicians Work Phone: Start: 09-01-2024 Dr. Rick gutierrez [facility] Inpatient Physicians Work Phone: Start: 08-31-2024 Non-patient / Non-visit Niranjan Frie nd DO -[facility] Start: 08-31-2024 Niranjan Friend DO -[facility] Start: 08-31-2024 Non-patient / Non-visit Dr. Lissette Carlin [facility] Inpatient Physicians Work Phone: Start: 08-31-2024 Dr. Rikc gutierrez [facility] Inpatient Physicians Work Phone: Start: 08-31-2024 Non-patient / Non-visit Dr. Bola Patiño own DO -[facility] Start: 08-31-2024 Dr. Bola Meraz DO -[facility] Start: 08-30-2024 Non-patient / Non-visit Niranjan Frie nd DO -[facility] Start: 08-30-2024 Niranjan Friend DO -[facility] Start: 08-30-2024 Non-patient / Non-visit Dr. Lissette Carlin [facility] Inpatient Physicians Work Phone: Start: 08-30-2024 Dr. Rick gutierrez [facility] Inpatient Phys[facility] Work Phone: Start: 08-30-2024 Non-patient / Non-visit Dr. Bola Patiño own DO -[facility] Start: 08-30-2024 Dr. Bola Meraz DO -[facility] Start: 08-29-2024 ambulatory Bola Meraz Facility:[facility] Start: 08-29-2024 End: 09-02-2024 Evaluation and management [...] Date Procedure Procedure Detail Performing Clinician Start: 01-21-2025 Estimated creatinine clearance No Primary Care Physician Start: 01-20-2025 Blood count smear mc rscp w/mnl difrntl wbc count No Primary Care Physician Start: 01-20-2025 Mean corpuscular hem oglobin concentration determination No Primary Care Physician Start: 01-20-2025 Nucleated red blood cell count procedure No Primary Care Physician Start: 01-20-2025 Platelet mean volume determination No Primary Care Physician Start: 01-19-2025 Calculation of inter national normalized ratio No Primary Care Physician Start: 01-19-2025 Serum inorganic phos phate measurement No Primary Care Physician Start: 01-18-2025 Blood count leukocyt e wbc automated No Primary Care Physician Start: 01-18-2025 Glucose measurement, body fluid No Primary Care Physician Start: 01-18-2025 Mononuclear cell count No Primary Care Physician Start: 01-18-2025 Polymorphonuclear le ukocyte count No Primary Care Physician Start: 01-18-2025 Gram stain microscopy N o Primary Care Physician Start: 01-18-2025 Measurement of occul t blood in stool specimen using immunoassay No Primary Care Physician Start: 01-18-2025 Centesis No Primary Care Physician Start: 01-18-2025 Ultrasonography of abdomen No Primary Care Physician Start: 01-14-2025 CT of chest without contrast No Primary Care Physician Start: 01-14-2025 Assay of prostate sp ecific antigen total No Primary Care Physician Start: 01-13-2025 MRI of lumbar spine No Primary Care Physician Start: 01-13-2025 MRI of thoracic spine N o Primary Care Physician Start: 01-13-2025 Total iron binding c apacity measurement No Primary Care Physician Start: 01-09-2025 Venous oxygen satura tion measurement No Primary Care Physician Start: 01-09-2025 Assay of lactate No Ivonne alex Care Physician Start: 01-09-2025 Vitamin D, 25-hydrox y measurement No Primary Care Physician Start: 01-09-2025 Bacterial nucleic acid assay No Primary Care Physician Start: 01-09-2025 Blood culture No Primar y Care Physician Start: 01-09-2025 Urine culture No Primar y Care Physician Start: 01-09-2025 Urine microscopy: red cells No Primary Care Physician Start: 01-09-2025 Urnls dip stick/tabl et reagent auto microscopy No Primary Care Physician Start: 01-09-2025 Blood count smear mc rscp w/mnl difrntl wbc count No Primary Care Physician Start: 01-09-2025 Estimated creatinine clearance No Primary Care Physician Start: 01-09-2025 Mean corpuscular hem oglobin concentration determination No Primary Care Physician Start: 01-09-2025 Nucleated red blood cell count procedure No Primary Care Physician Start: 01-09-2025 Platelet mean volume determination No Primary Care Physician Start: 01-09-2025 CT of abdomen and pe lvis without contrast No Primary Care Physician Start: 01-05-2025 Blood count smear mc rscp [...] Physician Start: 11-28-2024 Assay of lactate No [facility] Care Physician Start: 11-28-2024 Urine microscopy: red [...] Physician Start: 11-21-2024 Assay of lactate No Ivonne alex Care Physician Start: 11-21-2024 Urine microscopy: red cells No Primary Care Physician Start: 11-21-2024 Urnls dip stick/tabl et reagent auto microscopy No Primary Care Physician Start: 11-21-2024 Plain chest X-ray No Pr imary Care Physician Start: 11-18-2024 Antibody screen KATHIE P IERCE Comment on above: Order Comment: Speci men Type: BLOOD SPECIMENOrdering Facility: [facility] Address: [address] [place] [address] Performed By: #### T SCR ####CC MAIN BLOOD BANKCLIA [id number] [address] Start: 11-16-2024 End: 11-16-2024 Oscar Abreu RN Work Phone: Start: 11-15-2024 Antibody screen KATHIE P IERCE Comment on above: Order Comment: Speci men Type: BLOOD SPECIMENOrdering Facility: [facility] Address: [address] [place] [address] Performed By: #### T SCR ####CC MAIN BLOOD BANKCLIA [id number] [address] [place] Start: 11-13-2024 Lipid 1996 panel - S sandie or Plasma Marah Arauz SENIOR QA ENGINEER Work Phone: Start: 11-12-2024 Antibody screen KATHIE P IERCE Comment on above: Order Comment: Speci men Type: BLOOD SPECIMENOrdering Facility: [facility] Address: [address] [place] [address] Performed By: #### T SCR ####CC MAIN BLOOD BANKCLIA [id number] [address] [place] Start: 11-10-2024 Urine microscopy: red cells No Primary Care Physician Start: 11-10-2024 Urnls dip stick/tabl et reagent auto microscopy No Primary Care Physician Start: 11-10-2024 Calculation of inter national normalized ratio No Primary Care Physician Start: 11-10-2024 Blood count smear rs w/mnl difrntl wbc count No Primary Care [...] Physician Start: 11-09-2024 Assay of lactate No [facility] Care Physician Start: 11-08-2024 Serum inorganic phos phate measurement No Primary Care Physician Start: 11-08-2024 Triacylglycerol lipa se measurement No Primary Care Physician Start: 11-03-2024 Myelocyte percent differential count No Primary Care Physician Start: 10-30-2024 Clostridium difficil e detection No Primary Care Physician Start: 10-30-2024 Lactoferrin measurement No Primary Care Physician Start: 10-30-2024 Nucleic acid assay No [facility] Start: 10-30-2024 Ova OR parasites [...] Gases blood o2 satur ation only direct tyson No Primary Care Physician Start: 10-29-2024 Measurement of parti al pressure of oxygen in blood No Primary Care Physician Start: 10-29-2024 Oxygen measurement No P rimary Care Physician Start: 10-29-2024 Assay of triglycerides No Primary Care Physician Start: 10-29-2024 Blood culture No Primar Care Physician Start: 10-29-2024 Osmolality measurement, serum No Primary Care Physician Start: 10-29-2024 [...] Phone: Start: 10-04-2024 Cell count panel - Body fluid Joey Huang DO Work Phone: Start: 10-04-2024 Prothrombin time Yessenia Sullivano PA-C Work Phone: Start: 10-04-2024 Ct abdomen & pelvis w/contrast material Sriram Sullivano PA-C Work Phone: Start: 10-04-2024 Basic metabolic pane l calcium total Sriram Olivohio PA-C Work Phone: Start: 09-29-2024 Centesis No [...] Primary Care Physician Start: 09-05-2024 Introduction to urinary tract No Primary Care Physician Start: 09-05-2024 Assay of lactate No Ivonne [facility] Care Physician Start: 09-05-2024 Folic acid measurement [...] Primary Care Physician Start: 09-04-2024 Measurement of 3,4-methylenedioxymethampheta mine in urine No Primary Care Physician Start: [...] Physician Start: 09-04-2024 Urine culture No Primar y Care Physician Start: 09-02-2024 Anion gap measurement [...] DTaP,Tdap,Td Vaccine (2 - Td or Tdap) [facility] Start: 11-17-2029 Prostate specific antigen measurement Prostate Cancer Screening Discussion [facility] Start: 11-13-2029 Lipid panel Lipid Screening [facility] Start: 11-19-2027 Diabetes Screening Diabetes Screening [facility] Start: 11-17-2027 Diabetes Screening Diabetes Screening [facility] Start: 11-15-2027 Diabetes Screening Diabetes Screening [facility] Start: 11-13-2027 Diabetes Screening Diabetes Screening [facility] Start: 11-18-2025 Creatinine measurement Serum Creatinine [facility] Start: 11-16-2025 Creatinine measurement Serum Creatinine [facility] Start: 11-16-2025 Screening for malignant neoplasm of colon [facility] Start: 11-15-2025 Creatinine measurement Serum Creatinine [facility] Start: 11-12-2025 Creatinine measurement Serum Creatinine [facility] Start: 05-16-2025 Hepatitis A Vaccine (2 of 2 - Risk 2-dose series) Hepatitis A Vaccine (2 of 2 - Risk 2-dose series) [facility] Start: 03-02-2025 End: 03-02-2025 Patient encounter procedure 03/02/2025 2:20 PM EDT Office Visit [facility] [place] [address] [place] [address] Alex Alexandre MD [address] [place], [place] [id number] Hospital discharge, diabetes mx, need for repeat vaccines, and consideration of CT chest [facility] [place] Comment on above: Hospital discharge, diabetes mx, need fo r repeat vaccines, and consideration of CT chest Start: 02-02-2025 End: 02-02-2025 Patient encounter procedure 02/02/2025 9:20 AM EDT Office Visit [facility] [place] [address] [place] [address] Ray Vega MD [address] [place] [address] est care [facility] [place] Comment on above: est care Start: 01-21-2025 Patient discharge [facility] Start: 01-18-2025 End: 01-18-2025 Microbial culture, body fluid [facility] Start: 01-18-2025 Care planning and problem solving actions [facility] Start: 01-18-2025 Anaerobic microbial culture [facility] Start: 01-17-2025 [facility] Start: 01-16-2025 [facility] Start: 01-15-2025 [facility] Start: 01-14-2025 Consultation for pain [facility] Start: 01-14-2025 [facility] Start: 01-13-2025 Administration of blood product [facility] Start: 01-13-2025 [facility] Start: 01-12-2025 [facility] Start: 01-11-2025 Application of intermittent pneumatic compression device [facility] Start: 01-11-2025 Referral to general surgeon [facility] Start: 01-11-2025 [facility] Start: 01-10-2025 Care planning and problem solving actions [facility] Start: 01-09-2025 Assessment of risk of venous thromboembolism [facility] Start: 01-09-2025 Cardiac monitoring [facility] Start: 01-09-2025 Catheterization of vein [facility] Start: 01-09-2025 Inhalation therapy procedure [facility] Start: 01-09-2025 Insertion of catheter into peripheral vein [facility] Start: 01-09-2025 Measuring intake and output [facility] Start: 01-09-2025 Notification of physician [facility] Start: 01-09-2025 Patient referral to dietitian [facility] Start: 01-09-2025 Providing care according to standard [facility] Start: 01-09-2025 Referral to occupational therapist [facility] Start: 01-09-2025 Referral to service [facility] Start: 01-09-2025 Vital signs measurements [facility] Start: 01-09-2025 [facility] Start: 01-09-2025 End: 01-09-2025 Following clinical pathway protocol [facility] Start: 01-09-2025 Bacterial nucleic acid assay [facility] Start: 01-09-2025 Verification routine [facility] Start: 01-09-2025 Admission procedure [facility] Start: 01-09-2025 Hospital admission, emergency, from emergency room, medical nature [facility] Start: 01-09-2025 End: 01-09-2025 [facility] Start: 01-09-2025 Consultation [facility] Start: 01-05-2025 Patient discharge [facility] Start: 01-04-2025 [facility] Start: 01-03-2025 End: 01-03-2025 [facility] Start: 01-03-2025 End: 01-03-2025 Care regimes management [facility] Start: 01-03-2025 Notification of physician [facility] Start: 01-03-2025 [facility] Start: 01-02-2025 Application of intermittent pneumatic compression device [facility] Start: 01-02-2025 Ambulation without limitation [facility] Start: 01-02-2025 Assessment of risk of venous thromboembolism [facility] Start: 01-02-2025 Care regimes management [facility] Start: 01-02-2025 Insertion of catheter into peripheral vein [facility] Start: 01-02-2025 Measuring intake and output [facility] Start: 01-02-2025 Notification of physician [facility] Start: 01-02-2025 Providing care according to standard [facility] Start: 01-02-2025 Referral to occupational therapist [facility] Start: 01-02-2025 Referral to service [facility] Start: 01-02-2025 End: 01-02-2025 [facility] Start: 01-02-2025 Admission procedure [facility] Start: 01-02-2025 Verification routine [facility] Start: 01-02-2025 Hospital admission, emergency, from emergency room, medical nature [facility] Start: 01-02-2025 End: 01-02-2025 [facility] Start: 01-02-2025 Consultation [facility] Start: 01-02-2025 Patient referral to dietitian [facility] Start: 12-30-2024 Assay of magnesium [facility] Start: 12-30-2024 Assay of troponin quantitative [facility] Start: 12-30-2024 Basic metabolic panel calcium total [facility] Start: 12-30-2024 Blood count complete auto&auto difrntl wbc [facility] Start: 12-30-2024 Culture bacterial quanttative colony count urine [facility] Start: 12-30-2024 Culture bct isol&prsmptv id isolate ea urine [facility] Start: 12-30-2024 Ecg routine ecg w/least 12 lds trcg only w/o i&r [facility] Start: 12-30-2024 Emergency department visit high/urgent severity [facility] Start: 12-30-2024 Gluc bld gluc mntr dev cleared fda spec home use [facility] Start: 12-30-2024 Iv infusion hydration each additional hour [facility] Start: 12-30-2024 Iv infusion therapy/prophylaxis /dx 1st to 1 hr [facility] Start: 12-30-2024 Radiologic exam chest 2 views [facility] Start: 12-30-2024 Urnls dip stick/tablet reagent auto microscopy [facility] Start: 12-30-2024 [facility] Start: 12-30-2024 End: 12-30-2024 [facility] Start: 12-29-2024 End: 12-29-2024 Patient encounter procedure Endocrinology Comment on above: Diabetes maangement Diabetes maangement/ LVM OF SOONER APPOINTMENT 11/21 Start: 12-26-2024 [facility] Start: 12-26-2024 End: 12-26-2024 [facility] Start: 12-23-2024 End: 12-23-2024 Patient encounter procedure 12/23/2024 9:45 AM EDT Office Visit Vascular Medicine [address] [place] [id number] Pamella Frances, SQL ARCHITECT.UTILITY BILL COMPLAINTS INVESTIGATOR [address] [place] [address] HOSPITAL FOLLOW UP Vascular Medicine Comment on above: HOSPITAL FOLLOW UP Start: 12-12-2024 Hepatitis B Vaccine (2 of 2 - CpG 2-dose series) Hepatitis B Vaccine (2 of 2 - CpG 2-dose series) [facility] Start: 12-07-2024 End: 12-07-2024 Patient encounter procedure 12/07/2024 3:45 PM EDT Office Visit Urology [address] [address] Eva Pichardo MD [address] [place] [address] L ureteral stent, s/p staghorn calculi Urology Comment on above: L ureteral stent, s/p staghorn calculi Start: 12-07-2024 End: 12-07-2024 Patient encounter procedure 12/07/2024 11:20 AM EDT Office Visit [facility] [address] [place] [address] Ksenia Hoyos, SQL ARCHITECT.[facility] [facility] [employer] [facility] [address] [place] [address] Hospital discharge, diabetes mx, need for repeat vaccines, and consideration of CT chest [facility] Comment on above: Hospital discharge, diabetes mx, need fo r repeat vaccines, and consideration of CT chest Start: 12-02-2024 Patient discharge [facility] Start: 12-01-2024 Consultation [facility] Start: 11-29-2024 [facility] Start: 11-28-2024 Enteric precautions [facility] Start: 11-28-2024 Application of intermittent pneumatic compression device [facility] Start: 11-28-2024 Following clinical pathway protocol [facility] Start: 11-28-2024 Assessment of risk of venous thromboembolism [facility] Start: 11-28-2024 Care regimes management [facility] Start: 11-28-2024 Insertion of catheter into peripheral vein [facility] Start: 11-28-2024 Measuring intake and output [facility] Start: 11-28-2024 Notification of physician [facility] Start: 11-28-2024 Providing care according to standard [facility] Start: 11-28-2024 Provision of activity privileges [facility] Start: 11-28-2024 Referral to occupational therapist [facility] Start: 11-28-2024 Referral to service [facility] Start: 11-28-2024 End: 11-28-2024 [facility] [facility] Start: 11-28-2024 Admission procedure [facility] Start: 11-28-2024 Inhalation therapy procedure [facility] Start: 11-28-2024 Patient referral to dietitian [facility] Start: 11-25-2024 Patient discharge [facility] Start: 11-24-2024 Administration of blood product [facility] Start: 11-23-2024 Admission procedure [facility] Start: 11-22-2024 [facility] Start: 11-21-2024 Care regimes management [facility] Start: 11-21-2024 Notification of physician [facility] Start: 11-21-2024 Following clinical pathway protocol [facility] Start: 11-21-2024 Ambulation without limitation [facility] Start: 11-21-2024 Assessment of risk of venous thromboembolism [facility] Start: 11-21-2024 Insertion of catheter into peripheral vein [facility] Start: 11-21-2024 Measuring intake and output [facility] Start: 11-21-2024 Providing care according to standard [facility] Start: 11-21-2024 Referral to occupational therapist [facility] Start: 11-21-2024 Referral to service [facility] Start: 11-21-2024 End: 11-21-2024 [facility] Start: 11-21-2024 Verification routine [facility] Start: 11-21-2024 Admission procedure [facility] Start: 11-21-2024 Hospital admission, emergency, from emergency room, medical nature [facility] Start: 11-21-2024 End: 11-21-2024 [facility] Start: 11-21-2024 Consultation [facility] Start: 11-18-2024 End: 11-18-2024 Patient encounter procedure 11/18/2024 3:30 PM EDT Office Visit Cardiology [address] [id number]; Liver Tx Evaluation; CONTACT PRECAUTIONS - C-Diff; last of the day Cardiology Comment on above: G; Liver Tx Evaluation; CONTACT PRECAUTIONS - C-Diff; last of the day Start: 11-17-2024 End: 11-17-2024 Patient encounter procedure Pulmonary Medicine Comment on above: C-diff precuations/RA-2L/Reg WC Start: 11-15-2024 End: 11-15-2024 Patient encounter procedure 11/15/2024 1:15 PM EDT Office Visit Dentistry [address] [id number] Izabela Harvey, DDS [address] [place] [address] BEDSIDE - TRANSPLANT [place] - [id number] - Consult Placed 11/12/24 Dentistry Comment on above: BEDSIDE - TRANSPLANT [place] - [id number] - Consult Placed 11/12/24 Start: 11-10-2024 Patient discharge [facility] Start: 11-09-2024 Consultation [facility] Start: 11-09-2024 Referral to gastroenterology service [facility] Start: 11-09-2024 Glucose measurement, body fluid [facility] Start: 11-08-2024 Urinary bladder residual urine study [facility] Start: 11-08-2024 [facility] Start: 11-05-2024 Removal of urinary catheter [facility] Start: 11-04-2024 [facility] Start: 10-31-2024 [facility] Start: 10-30-2024 Attention to flatus tube [facility] Start: 10-30-2024 Referral to gastroenterology service [facility] Start: 10-29-2024 Insertion of nasogastric tube [facility] Start: 10-29-2024 Bacteria identified in Blood by Culture Blood Culture [facility] Start: 10-29-2024 Referral to service [facility] Start: 10-29-2024 Application of intermittent pneumatic compression device [facility] Start: 10-29-2024 Following clinical pathway protocol [facility] Start: 10-29-2024 Cardiac monitoring [facility] Start: 10-29-2024 Catheterization of vein [facility] Start: 10-29-2024 Enteric precautions [facility] Start: 10-29-2024 Notification of physician [facility] Start: 10-29-2024 Vital signs measurements [facility] Start: 10-29-2024 [facility] Start: 10-29-2024 End: 10-29-2024 Consultation [facility] Start: 10-29-2024 Clostridioides difficile DNA [Presence] in Unspecified specimen by ANANTH with probe detection [facility] Start: 10-29-2024 Complete ultrasound of kidneys and bladder Kidney and Bladder [facility] Start: 10-29-2024 Lactoferrin [Presence] in Stool by Immunoassay [facility] Start: 10-29-2024 Nucleic acid assay [facility] Start: 10-29-2024 Admission procedure [facility] Start: 10-29-2024 End: 10-29-2024 Hospital admission, emergency, from emergency room, medical nature [facility] Start: 10-29-2024 End: 10-29-2024 [facility] Start: 10-29-[address] [facility] Start: 10-28-2024 [facility] Start: 10-28-2024 Bacteria identified in Urine by Culture Urine Culture [facility] Start: 09-14-2024 Patient discharge [facility] Start: 09-06-2024 Referral to service [facility] Start: 09-06-2024 Referral to occupational therapist [facility] Start: 09-06-2024 Referral to cops [facility] Start: 09-06-2024 Consultation [facility] Start: 09-06-2024 Care planning and problem solving actions [facility] Start: 09-06-2024 [facility] Start: 09-05-2024 Application of intermittent pneumatic compression device [facility] Start: 09-05-2024 Continuous positive airway pressure ventilation treatment [facility] Start: 09-05-2024 Cardiac monitoring [facility] Start: 09-05-2024 Care regimes management [facility] Start: 09-05-2024 Catheterization of vein [facility] Start: 09-05-2024 Consultation [facility] Start: 09-05-2024 Notification of physician [facility] Start: 09-05-2024 Vital signs measurements [facility] Start: 09-05-2024 End: 09-05-2024 [facility] Start: 09-05-2024 Following clinical pathway protocol [facility] Start: 09-05-2024 Admission procedure [facility] Start: 09-05-2024 Patient referral to [facility] Start: 09-02-2024 Patient discharge [facility] Start: 08-31-2024 Care planning and problem solving actions [facility] Start: 08-30-2024 [facility] Start: 08-29-2024 Following clinical pathway protocol [facility] Start: 08-29-2024 Assessment of risk of venous thromboembolism [facility] Start: 08-29-2024 Care regimes management [facility] Start: 08-29-2024 Fall prevention [facility] Start: 08-29-2024 Inhalation therapy procedure [facility] Start: 08-29-2024 Insertion of catheter into peripheral vein [facility] Start: 08-29-2024 Measuring intake and output [facility] Start: 08-29-2024 Notification of physician [facility] Start: 08-29-2024 Patient referral to dietitian [facility] Start: 08-29-2024 Providing care according to standard [facility] Start: 08-29-2024 Provision of activity privileges [facility] Start: 08-29-2024 Referral to gastroenterology service [facility] Start: 08-29-2024 Referral to cops [facility] Start: 08-29-2024 Referral to occupational therapist [facility] Start: 08-29-2024 Referral to service [facility] Start: 08-29-2024 Vital signs measurements [facility] Start: 08-29-2024 End: 08-29-2024 [facility] Start: 08-29-2024 Admission procedure [facility] Start: 08-21-2024 [facility] Start: 04-04-2024 COVID-19 Vaccine ( season) COVID-19 Vaccine ( season) [facility] Start: 04-04-2024 Influenza vaccination Influenza Vaccine (#1) [facility] Start: 2021 Prostate specific antigen measurement Prostate Cancer Screening Discussion [facility] Start: 2016 Zoster Vaccines (1 of 2) Zoster Vaccines (1 of 2) [facility] Start: 2011 Screening for malignant neoplasm of colon [facility] Start: 2001 Lipid panel Lipid Screening [facility] Start: 1988 DTaP/Tdap/Td Vaccines (1 - Tdap) DTaP/Tdap/Td Vaccines (1 - Tdap) [facility] Start: 1985 Hepatitis A Vaccine (1 of 2 - Risk 2-dose series) Hepatitis A Vaccine (1 of 2 - Risk 2-dose series) [facility] Start: 1985 Hepatitis A Vaccines (1 of 2 - Risk 2-dose series) Hepatitis A Vaccines (1 of 2 - Risk 2-dose series) [facility] Start: 1985 Hepatitis B Vaccine (1 of 3 - 19+ 3-dose series) Hepatitis B Vaccine (1 of 3 - 19+ 3-dose series) [facility] Start: 1985 Hepatitis B Vaccines (1 of 3 - 19+ 3-dose series) Hepatitis B Vaccines (1 of 3 - 19+ 3-dose series) [facility] Start: 1985 Pneumococcal vaccination Pneumococcal Vaccine (1 of 2 - PCV) [facility] Start: 1985 Pneumococcal Vaccine: 50+ (1 of 2 - PCV) Pneumococcal Vaccine: 50+ (1 of 2 - PCV) [facility] Start: 1985 Shingrix Vaccine (1 of 2) Shingrix Vaccine (1 of 2) [facility] Start: 1985 Urine microalbumin profile DTaP,Tdap,Td Vaccine (1 - Tdap) [facility] Start: 1984 Annual PCP Team Chronic Disease Visit Annual PCP Team Chronic Disease Visit [facility] Start: 1984 Anxiety Screening Anxiety Screening [facility] Start: 1984 Depression Screening Depression Screening [facility] Start: 1984 Hepatitis C screening Hepatitis C Screening [facility] Start: 1984 HIV screening HIV Screening [facility] Start: 1976 Glaucoma screening Diabetes: Retinopathy Screening [facility] Start: 1967 MMR Vaccines (1 of 1 - Standard series) MMR Vaccines (1 of 1 - Standard series) [facility] Start: 1966 Hemoglobin A1c measurement Diabetes: Hemoglobin A1C [facility] Start: 1966 HIV screening HIV Screening [facility] Start: 1966 Lipid panel Lipid Panel [facility] Start: 1966 Screening for malignant neoplasm of colon [facility] Start: 1966 Urine screening for protein Diabetes: Urine Protein Screening [facility] Start: 1966 Yearly Adult Physical Yearly Adult Physical [facility] End: 10-04-2024 Albumin [Mass/volume] in Body fluid [facility] Work Phone: Comment on above: Once (Lab) for 1 Occurrences starting until 10/04/2024 Once for 1 Occurrenc es starting 10/04/2024 until 10/04/2024 End: 10-04-2024 Bacteria identified in Body fluid by Culture [facility] Work Phone: Comment on above: Once (Lab) for 1 Occurrences starting until 10/04/2024 End: 10-04-2024 Clostridioides difficile toxin A+B tcdA+tcdB genes [Presence] in Stool by ANANTH with probe detection C. difficile, PCR Microbiology STAT STAT (Lab) for 1 Occurrences starting 10/04/2024 until 10/04/2024 [facility] Work Phone: Comment on above: STAT (Lab) for 1 Occurrences starting until 10/04/2024 Cytology report of B carmelina fluid Cyto stain [facility] End: 10-04-2024 Extra Urine Garvey Tube Extra Urine Garvey Tube Lab Timed Once for 1 Occurrences starting 10/04/2024 until 10/04/2024 [facility] Work Phone: Comment on above: Once for 1 Occurrences starting 10/05/19 until 10/04/2024 End: 10-04-2024 Glucose [Mass/volume] in Body fluid [facility] Work Phone: Comment on above: Once (Lab) for 1 Occurrences starting until 10/04/2024 Once for 1 Occurrenc es starting 10/04/2024 until 10/04/2024 Glucose [Mass/volume ] in Serum or Plasma [facility] End: 10-04-2024 Hemoglobin.gastrointestin al.lower [Presence] in Stool by Immunoassay Fecal Occult Blood Immunoassy Microbiology STAT Once (Lab) for 1 Occurrences starting 10/04/2024 until 10/04/2024 [facility] Work Phone: Comment on above: Once (Lab) for 1 Occurrences starting until 10/04/2024 End: 10-04-2024 Lactate dehydrogenase [Enzymatic activity/volume] in Body fluid by Lactate to pyruvate reaction [facility] Work Phone: Comment on above: Once (Lab) for 1 Occurrences starting until 10/04/2024 Once for 1 Occurrenc es starting 10/04/2024 until 10/04/2024 Lactate dehydrogenas e [Enzymatic activity/volume] in Body fluid by Pyruvate to lactate reaction [facility] Lactic acid measurement [facility] Lactic acid measurement [facility] End: 10-04-2024 Non-gynecological cytology method study Cytology (Non-Gynecologic) Pathology and Cytology Routine Once (Lab) for 1 Occurrences starting 10/04/2024 until 10/04/2024 [facility] Service Area Work Phone: Comment on above: Once (Lab) for 1 Occurrences starting until 10/04/2024 Ova OR parasites identification [facility] Patient Education [facility] Work Phone: Patient referral [facility] Work Phone: End: 10-04-2024 pH of Body fluid [facility] Work Phone: Comment on above: Once (Lab) for 1 Occurrences starting until 10/04/2024 End: 10-04-2024 Protein [Mass/volume] in Body fluid [facility] Work Phone: Comment on above: Once (Lab) for 1 Occurrences starting until 10/04/2024 Once for 1 Occurrenc es starting 10/04/2024 until 10/04/2024 Protein [Mass/volume ] in Body fluid [facility] End: 10-04-2024 Stool Pathogen Panel, PCR Stool Pathogen Panel, PCR Microbiology STAT Once (Lab) for 1 Occurrences starting 10/04/2024 until 10/04/2024 [facility] Work Phone: Comment on above: Once (Lab) for 1 Occurrences starting until 10/04/2024 UA DIP, URINE (POC) UA DIP, URIN E (POC) Lab Routine Screening for genitourinary condition 1 Occurrences starting 12/07/2024 [facility] Work Phone: Comment on above: 1 Occurrences starting 12/07/2024 End: 10-04-2024 Urinalysis complete W Reflex Culture panel - Urine [facility] Service Area Work Phone: Comment on above: Once (Lab) for 1 Occurrences starting until 10/04/2024 Once for 1 Occurrenc es starting 10/04/2024 until 10/04/2024 Urine culture [facility] Urine culture [facility] Urine culture [facility] Urine culture [facility] Urine culture [facility] Urine culture [facility] Urine culture [facility] Immunizations Immunization Date Immunization Notes Care Provider Danny méndez 11-16-2024 COVID-19 vaccine, ag e 12+ yr ([facility]) Jeremi Abreu RN Work Phone: [facility] 11-15-2024 pneumococcal conjuga te (PCV20) vaccine, 20 valent (PREVNAR 20) Marah Hyacinthwellington [facility] Work Phone: [facility] 11-14-2024 hepatitis A vaccine, adult dosage Marah Hyacinthwellington [employer] ENGINE[employer] Work Phone: [facility] 11-14-2024 Hepatitis B vaccine (recombinant), CpG adjuvanted Marah Claroswellington [employer]ENIOR QA ENGINEER Work Phone: [facility] 11-14-2024 tetanus toxoid, redu danica diphtheria toxoid, and acellular pertussis vaccine, adsorbed Marah Helwellington SENIOR QA ENGINEER Work Phone: [facility] 09-20-2024 influenza, seasonal, injectable Jeremi Abreu RN Work Phone: [facility] Work Phone: 09-15-2024 tuberculin skin test ; purified protein derivative solution, intradermal Jeremi Abreu RN Work Phone: [facility] Payers Date Payer Category Payer Self-pay 2024 Medicaid [id number] 2024 Medicaid [id number] 1965 Unknown [id number] Unknown [id number] Social History Date Type Detail Facility Start: 10-04-2024 End: 01-10-2025 Tobacco smoking status NHIS Ex-smoker [facility] Work Phone: History of tobacco use [facility] History of tobacco use Cigarette Smoker [facility] Work Phone: Start: 10-04-2024 End: 11-11-2024 Tobacco use and exposure Smokeless tobacco non-user [facility] Work Phone: Start: 10-04-2024 Alcoholic beverage intake Ex-drinker (finding) [facility] Work Phone: Start: 10-04-2024 End: 11-15-2024 History of Social function [facility] Start: 10-04-2024 End: 11-15-2024 Tobacco use panel [facility] Start: 1965 Sex assigned at Not on file [facility] Work Phone: Start: 09-24-2024 End: 10-04-2024 Exposure to SARS-CoV-2 (event) Not sure [facility] Work Phone: Start: 10-11-2024 End: 11-21-2024 Sex Male (finding) [facility] Start: 1965 Sex Assigned At Male [facility] Start: 11-11-2024 End: 11-18-2024 Alcoholic beverage intake Lifetime non-drinker (finding) [facility] Has the [employer], [employer], [email or web address], or water company threatened to shut off services in your home in past 12Mo No [facility] (I/We) worried [facility] (my/our) food would run out before (I/we) got money to buy more. Sometimes true [facility] In the past 12 month s, has lack of transportation kept you from medical appointments or from getting medications? Yes [facility] Medical Equipment Procedure Code Equipment Code Equipment Origin al Text Equipment Identifier Dates Cystoscopic insertion of stent ([id number]) [id number] FDA Start: 09-05-2024 Goals Date Patient Goal Desired Activity /State Functional Status Date Assessment Result Facility 01-21-2025 Functional status Ambulates [facility] Work Phone: 01-05-2025 Functional status With Assist of 1 [facility] Work Phone: 01-05-2025 Functional status Ambulates;Bath room Privilege [facility] Work Phone: 12-02-2024 Functional status Ambulates [facility] Work Phone: 11-25-2024 Functional status Bedrest [facility] Work Phone: 11-18-2024 Are you deaf, or do you have serious difficulty hearing Yes 11/18/2024 10:13 AM Anika Andino, DAYSI Yes [facility] 11-18-2024 Are you blind, or do you have serious difficulty seeing, even when wearing glasses No 11/18/2024 10:13 AM Anika Andino RN No [facility] 11-18-2024 Do you have serious difficulty walking or climbing stairs Yes 11/18/2024 10:13 AM Anika Andino, DAYSI Yes [facility] 11-18-2024 Do you have difficul ty dressing or bathing Yes 11/18/2024 10:13 AM Anika Andino, DAYSI Yes [facility] 11-18-2024 Because of a physica l, mental, or emotional condition, do you have difficulty doing errands alone such as visiting a physician's office or shopping Yes 11/18/2024 10:13 AM Anika Andino, DAYSI Yes [facility] 11-11-2024 Functional status Bedpan [facility] Work Phone: 09-15-2024 Functional status Ambulates [facility] Work Phone: 09-02-2024 Functional status Bathroom Privilege [facility] Work Phone: Mental Status Date Assessment Result Facility 01-21-2025 Cognitive function Voice/Name [facility] Work Phone: 01-05-2025 Cognitive function Voice/Name [facility] Work Phone: 01-02-2025 Cognitive function Awake;Alert;Appropriat e [facility] Work Phone: 12-30-2024 Cognitive function Awake;Alert;A ppropriate; Follows Commands [facility] Work Phone: 12-02-2024 Cognitive function Voice/Name [facility] Work Phone: 11-25-2024 Cognitive function Voice/Name [facility] Work Phone: 11-18-2024 Because of a physica l, mental, or emotional condition, do you have serious difficulty concentrating, remembering, or making decisions Yes 11/18/2024 10:13 AM EDAnika Gonzales RN Yes [facility] 11-10-2024 Cognitive function Voice/Name [facility] Work Phone: 09-29-2024 Cognitive function Awake;Alert;A ppropriate; Follows Commands [facility] Work Phone: 09-14-2024 Cognitive function Appropriate;Cooperativ e [facility] Work Phone: 09-14-2024 Cognitive function Voice/Name [facility] Work Phone: 09-02-2024 Cognitive function Voice/Name [facility] Work Phone: Clinical Notes 08-30-2024 to 01-21-2025 Note Date & Type Note Facility 01-21-2025 Discharge summary Note Date/Time January 21, 2025 11:12am [facility] Medical Records Department [address] [place] [address] Transfer to [facility] MR#: [id number] Acct: [id number] Name: FRANKLIN ARCHULETA Rep #:[id number] : 1965 59 From: Anurag Lucero PCP: YG Pena Status:ADM I N Certification of patient admission REQUIRED AT TIME OF ADMISSION. I CERTIFY THAT POST-HOSPITAL ECF SERVICES ARE REQUIRED TO BE GIVEN ON AN IN-PATIENT BASIS BECAUSE OF THE ABOVE NAMED PATIENT'S NEED FOR GROUP HOME CARE ON A CONTINUING BASIS FOR THE CONDITION(S) FOR WHICH HE/SHE WAS RECEIVING IN-PATIENT HOSPITAL SERVICES PRIOR TO HIS/HER TRANSFER TO [facility]. 01/21/25 1112<Electronically signed by Anurag Irene MD> Diet Diet Order/Speech Therapy: INPATIENT Hospital Diet / Speech Therapy Order(s) 01/18/25 15:29 Diet: Cardiac - Heart Healthy Dietary Modifications:: Consistent Carbohydrate Type of Dietary Supplement:: Glucerna Shake Diet Comments: 120ml vanilla glucerna shake with all meals DC O2, CPAP, BIPAP needs Home O2 Discharge instructions: No Wound(s) RLQ: Wound Type: Puncture BLE: Wound Type: scratches Problem/Diagnosis (1) Sepsis: Status: Acute Code(s): A41.9 - Sepsis, unspecified organism (2) Abnormal urinalysis: Status: Acute Code(s): R82.90 - Unspecified abnormal findings in urine Plan #Sepsis due to UTI * Hypotension has resolved. Blood pressure stable. * He does have a history of known left-sided staghorn calculi and stenting and follows with Dr. Rascon * Continue broad-spectrum antibiotics with vancomycin and meropenem * Blood culture showed no growth after 5 days. Urine cultures growing yeast not Mary albicansundefined 01/17: Sepsis resolved. Urine culture shows is not Mary albicans. That mightbe commensal/colonization. Blood culture negative for 5 days. Patient is on meropenem since admission 01/09 had total 8 days of antibiotics therefore discontinued. Patient also had vancomycin vancomycin in the beginning of the admission #Lactic acidosis: Likely due to sepsis. Resolved with hydration. #ISABEL: Resolved. #Hypokalemia: will replace and trend. 01/18 interval severe hypokalemia, potassium of IV bolus ordered. 01/19: Hypokalemia: Potassium, K3.1. On spironolactone 50 mg p.o. twice daily. #Umbilical hernia * Was evaluated by general surgery and the hernia was reduced. Is no longer tender. * #History of compression fractures of T8-T12 * PT OT on board. Fall precautions. * patient still complaining of severe back pain. * MRI of the lumbar spine showed Schmorl's nodules at multiple vertebral endplates of the lower thoracic and lumbar spine with associated anterior wedging of T11 and 12 and review of the thoracic spine MRI images demonstrated Schmorl's nodes at multiple vertebral endplates throughout the thoracic spine with associated anterior wedging of multiple blastic vertebral bodies consistent with Shermans kyphosis and multilevel facet arthropathy of the lumbar spine with lateral recess stenosis and foraminal narrowing. * Thoracic MRI showed abnormal marrow signal at T12 and L1 with no acute compression deformity identified and cannot exclude metastatic involvement of these 2 vertebral bodies and mild spinal stenosis of the level of T10-11 and T11-T12 * Patient PSA is normal. CT of the abdomen pelvis showed no evidence of any malignancy. I did get a CT of the chest today also which showed no evidence of malignancy. His total protein level is not elevated and total albumin level is also normal * He does have a history of smoking but as stated the CT chest showed no evidence of any lung nodules or malignancy. * CT of the chest showed partially visualized severe degenerative changes of T11 and 12 with areas of erosive changes and lytic lesions as well as cirrhosis and ascites. * Pain management consulted. WIll see patient on Friday * Patient will need follow-up on outpatient basis with PCP for further workup for any malignancy. * PT OT on board. Fall precautions. 01/17: We called Dr. Bautista and he said either he or his partner will see the patient and recommend accordingly. Patient has pre-CERT for going to defined SNF. 01/19: Discussed with Dr. Carmichael and he said patient high risk for epidural necessary with INR 2.0. Advised outpatient follow-up and procedure. #Hypomagnesemia: Resolved with replacement. #History of nonalcoholic liver disease with cirrhosis * On rifaximin and lactulose. Aldactone and nadolol held on account of hypotension 01/18: Patient currently on midodrine. Aldactone resumed from tomorrow a.m. ultrasound abdomen ordered for paracentesis and diagnostic labs ordered. BP is low,105/55. 01/19: Patient had 2650 mL fluid drained. Peritoneal fluid shows WBC 143, polymorphs 35, mononuclear 108 therefore SBP ruled out. Fluid total protein 0.3consistent with portal hypertensive ascites. Patient has hypokalemia 3.0, sodium 132. On spironolactone 25 mg twice daily increased to 50 mg twice daily. Hypoalbuminemia, hypergammaglobulinemia, A/G ratio 0.9. 01/20: Furosemide 20 mg daily and spironolactone 50 mg twice daily. Patient has itching in lower extremity therefore Calmoseptine ointment and Atarax ordered. #Acute on chronic anemia * Hemoglobin is 7.9 today; he was transfused with one unit of pRBC during this admission. Baseline is around 8-9 though he has been as low as 7.2 before. * No clear evidence of bleeding. * May be due to his history of liver disease also. * stool for ocult blood negative 01/19: H&H 7.6/22.3%. Platelet count 107K. 01/20: H&H 7.7, platelet count 93K. #Chronic thrombocytopenia: Platelet count is about 109K. It has been about 109 K- 130K #History of venous thrombosis: * Not anticoagulated due to history of hematuria. Will monitor. #History of hypotension: On midodrine. Continue midodrine #GERD: On PPI #Type 2 diabetes mellitus: On Lantus. Insulin sliding scale. Accu-Cheks ACHS. #Hyperlipidemia: On statin DVT prophylaxis: SCDs Microbiology Past 72 Hours 01/18/25 14:32 Fluid - Ascites Gram Stain - Final 01/18/25 14:32 Fluid - Ascites Body Fluid Culture - Preliminary No growth-Final to follow 01/18/25 19:00 Stool Stool Occult Blood (AUDIE) - Final Laboratory Results 01/18/25 14:32: Fl Pathologist Comment Reviewed 01/19/25 17:19: POC Glucose 268 H 01/19/25 21:47: POC Glucose 225 H 01/20/25 04:59: WBC 6.8, RBC 2.60 L, Hgb 7.7 L, Hct 22.9 L, MCV 88.1, MCH 29.6, MCHC 33.6, RDW Std Deviation 58.5 H, RDW Coeff of Francis 18.3 H, Plt Count 93 L, MPV 10.6, Immature Gran % (Auto) 1.200 H, Neut % (Auto) 63.5, Lymph % (Auto) 16.3 L, [place] % (Auto) 11.9 H, Eos % (Auto) 6.5 H, Baso % (Auto) 0.6, Absolute Neuts (auto) 4.3, Absolute Lymphs (auto) 1.10, Nucleated RBC % 0, Differential Comment SCANNED, Platelet Estimate MOD DEC, Sodium 133, Potassium 3.1 L, Chloride 95 L, Carbon Dioxide 30.3, Anion Gap 7, BUN 12, Creatinine 0.87, Estim Creat Clear Calc 112.61, Est GFR (MDRD) Non-Af 100, BUN/Creatinine Ratio 13.4, Glucose 195 H, Calcium 8.1, Total Bilirubin 1.61 H, AST 45 H, ALT 32, Alkaline Phosphatase 211 H, Total Protein 4.9 L, Albumin 2.0 L, Globulin 2.9, Albumin/Globulin Ratio 0.7 L 01/20/25 06:25: POC Glucose 164 H 01/20/25 11:49: POC Glucose 167 H Allergies/Procedures Done in Hospital Allergies No Known Allergies Allergy (Verified 01/02/25 03:00) Type of Care/Length of Stay Estimated LOS: Convalescent Care Less Than 30 days Type of Care Needed: Skilled Rehab Potential: Good Prognosis: Good Additional Orders/Day of Discharge Day of Discharge: 01/21/25 Dietary and Speech Recommendations Dietitian Recommendations/Changes: Adjust to cardiac, consistent carbohydrate diet. Continue 120 ml vanilla glucerna shake TID with meal. Will monitor weight trends. Discharge Plan Admission Admit Date/Time: 01/09/25 14:16 Attending Provider: Anurag Irene Primary Care Provider: Josy Elias Consulting Providers: Yaritza Leo; Jefferson Malave; Aleyda Bautista; Cielo Tovar Instructions Additional Instructions / Restrictions: Follow-up in [facility] hepatology/GI. Discharge Orders/Prescriptions Prescriptions: New spironolactone 25 mg Tablet 25 mg PO DAILY 30 Days Qty: 30 2RF Rx Instructions: total 125 mg daily Hold for serum potassium more than 5.0 spironolactone 100 mg tablet 100 mg PO DAILY 30 Days Qty: 30 2RF Rx Instructions: Hold for serum potassium more than 5.0. Total 125 mg daily. Continued Xifaxan 550 mg Tablet 550 mg PO BID Qty: 60 0RF cyclobenzaprine 10 mg tablet 10 mg PO QHS ferrous sulfate [FeroSul] 325 mg (65 mg iron) tablet 325 mg PO QODAY insulin lispro [Humalog KwikPen Insulin] 100 unit/mL [...] 20 unit subcut QHS Qty: 0 0RF folic acid 1 mg tablet 1 mg [...] release 24 hr 500 mg PO QPM thiamine HCl (vitamin B1) 100 mg tablet [...] 1 cap PO TID Qty: 120 0RF Changed insulin glargine-yfgn 100 unit/mL (3 mL) Insulin Pen 25 unit subcut DAILY Qty: 15 3RF Discontinued nadolol 20 mg tablet 20 mg PO DAILY spironolactone 50 mg tablet 100 mg PO DAILY potassium, sodium phosphates 280-160-250 mg Powder In Packet 1 packet PO BID Qty: 100 0RF Referrals / Follow Up: Josy Elias NP-C [Primary Care Provider] - Within 2 Weeks Disposition Disposition (needs filled in before D/C Order can be placed): [facility] Facility 01/21/25 1112 <Electronically signed by Anurag Irene MD> Cosigner Signature (if applicable): CC: YG Elias; Dr. Aleyda Bautista MD; Dr. Yaritza Leo DO; Dr. Cielo Tovar MD; Dr. Jefferson Malave MD ~ [facility] Work Phone: 1(217) 475-180606-20-2025 Discharge summary Author Anurag Irene [facility] Note Date/Time January 21, 2025 1:29 pm [facility] Medical Records Department [address] [place] [address] Discharge Summary 01/21/25 1112 MR#: [id number] Acct: [id number] Name: FRANKLIN ARCHULETA Rep #:[id number] : 1965 59 From: Anurag Lucero PCP: YG Pena Status:ADM I N Location: [place] [address] Providers Date of Admission: 01/09/25 Date of Discharge: 01/21/25 Primary Care Physician: YG Pena Consultations 01/09/25 15:46 Consult: Strategic Marketing Manager / Pulmonary Medicine Routine Consulting Provider: Intensivists/Pulmonary Med Reason for Consult: sepsis EMERGENT Consult: No MD Notified: Yes Date Notified: 01/09/25 Time Notified: 14:21 Method of Notification: Text 01/11/25 13:23 Consult: General Surgery Routine Consulting Provider: Jefferson Malave Reason for Consult: Tender umbilical hernia possibly incarcerated EMERGENT Consult: No MD Notified: Yes Date Notified: 01/11/25 Time Notified: 13:23 Method of Notification: Text 01/14/25 13:24 Consult: Pain Management Routine Consulting Provider: Aleyda Bautista Reason for Consult: severe back pain EMERGENT Consult: No Notified: Yes Date Notified: 01/14/25 Time Notified: 16:31 Method of Notification: Answering Service Reason For Visit: SEPSIS Diagnosis Discharge Diagnosis (1) Sepsis: Status: Acute Code(s): A41.9 - Sepsis, unspecified organism (2) Abnormal urinalysis: Status: Acute Code(s): R82.90 - Unspecified abnormal findings in urine Plan 53 gentleman was admitted with abdominal pain and back pain that started 5 days ago no fall no injury. No fever mild nausea but no vomiting. He was admitted with the diagnosis of sepsis due to UTI. #Sepsis due to UTI * Hypotension has resolved. Blood pressure stable. * He does have a history of known left-sided staghorn calculi and stenting and follows with Dr. Rascon * Continue broad-spectrum antibiotics with vancomycin and meropenem * Blood culture showed no growth after 5 days. Urine cultures growing yeast not Mary albicansundefined 01/17: Sepsis resolved. Urine culture shows is not Mary albicans. That mightbe commensal/colonization. Blood culture negative for 5 days. Patient is on meropenem since admission 01/09 had total 8 days of antibiotics therefore discontinued. Patient also had vancomycin vancomycin in the beginning of the admission #Lactic acidosis: Likely due to sepsis. Resolved with hydration. #ISABEL: Resolved. #Hypokalemia: will replace and trend. 01/18 interval severe hypokalemia, potassium of IV bolus ordered. 01/19: Hypokalemia: Potassium, K3.1. On spironolactone 50 mg p.o. twice daily. #Umbilical hernia * Was evaluated by general surgery and the hernia was reduced. Is no longer tender. * #History of compression fractures of T8-T12 * PT OT on board. Fall precautions. * patient still complaining of severe back pain. * MRI of the lumbar spine showed Schmorl's nodules at multiple vertebral endplates of the lower thoracic and lumbar spine with associated anterior wedging of T11 and 12 and review of the thoracic spine MRI images demonstrated Schmorl's nodes at multiple vertebral endplates throughout the thoracic spine with associated anterior wedging of multiple blastic vertebral bodies consistent with Shermans kyphosis and multilevel facet arthropathy of the lumbar spine with lateral recess stenosis and foraminal narrowing. * Thoracic MRI showed abnormal marrow signal at T12 and L1 with no acute compression deformity identified and cannot exclude metastatic involvement of these 2 vertebral bodies and mild spinal stenosis of the level of T10-11 and T11-T12 * Patient PSA is normal. CT of the abdomen pelvis showed no evidence of any malignancy. I did get a CT of the chest today also which showed no evidence of malignancy. His total protein level is not elevated and total albumin level is also normal * He does have a history of smoking but as stated the CT chest showed no evidence of any lung nodules or malignancy. * CT of the chest showed partially visualized severe degenerative changes of T11 and 12 with areas of erosive changes and lytic lesions as well as cirrhosis and ascites. * Pain management consulted. WIll see patient on Friday * Patient will need follow-up on outpatient basis with PCP for further workup for any malignancy. * PT OT on board. Fall precautions. 01/17: We called Dr. Bautista and he said either he or his partner will see the patient and recommend accordingly. Patient has pre-CERT for going to defined SNF. 01/19: Discussed with Dr. Carmichael and he said patient high risk for epidural necessary with INR 2.0. Advised outpatient follow-up and procedure. 01/21 advised to follow with Dr. Carmichael as an outpatient #Hypomagnesemia: Resolved with replacement. #History of nonalcoholic liver disease with cirrhosis * On rifaximin and lactulose. Aldactone and nadolol held on account of hypotension 01/18: Patient currently on midodrine. Aldactone resumed from tomorrow a.m. ultrasound abdomen ordered for paracentesis and diagnostic labs ordered. BP is low,105/55. 01/19: Patient had 2650 mL fluid drained. Peritoneal fluid shows WBC 143, polymorphs 35, mononuclear 108 therefore SBP ruled out. Fluid total protein 0.3consistent with portal hypertensive ascites. Patient has hypokalemia 3.0, sodium 132. On spironolactone 25 mg twice daily increased to 50 mg twice daily. Hypoalbuminemia, hypergammaglobulinemia, A/G ratio 0.9. 01/20: Furosemide 20 mg daily and spironolactone 50 mg twice daily. Patient has itching in lower extremity therefore Calmoseptine ointment and Atarax ordered. 01/21: mild hypokalemia K3.1. Spironolactone dose increased to 125 mg daily. Furosemide 40 mg daily. Patient advised to follow-up with hepatology/GI. In clinic as he was evaluated in the past. Ascetic fluid culture did not show any growth. SBP ruled out #Acute on chronic anemia * Hemoglobin is 7.9 today; he was transfused with one unit of pRBC during this admission. Baseline is around 8-9 though he has been as low as 7.2 before. * No clear evidence of bleeding. * May be due to his history of liver disease also. * stool for ocult blood negative 01/19: H&H 7.6/22.3%. Platelet count 107K. 01/20: H&H 7.7, platelet count 93K. #Chronic thrombocytopenia: Platelet count is about 109K. It has been about 109 K- 130K #History of venous thrombosis: * Not anticoagulated due to history of hematuria. Will monitor. #History of hypotension: On midodrine. Continue midodrine #GERD: On PPI #Type 2 diabetes mellitus: On Lantus. Insulin sliding scale. Accu-Cheks ACHS. #Hyperlipidemia: On statin DVT prophylaxis: SCDs Discharge medication reconciliation done. Discharge follow-up instructions completed. Discharge process discussed with the patient and all questions wereanswered to patient's satisfaction. Follow with PCP in 1 to 2 weeks Total time spent, exact 35 minutes on discharge meds reconciliation, examination, coordination of care with nurses and ancillary staff, review of imaging and blood test and discussion with the patient on follow-up instructions. Microbiology Past 72 Hours 01/18/25 14:32 Fluid - Ascites Gram Stain - Final 01/18/25 14:32 Fluid - Ascites Body Fluid Culture - Preliminary No growth-Final to follow 01/18/25 19:00 Stool Stool Occult Blood (AUDIE) - Final Laboratory Results 01/18/25 14:32: Fl Pathologist Comment Reviewed 01/19/25 17:19: POC Glucose 268 H 01/19/25 21:47: POC Glucose 225 H 01/20/25 04:59: WBC 6.8, RBC 2.60 L, Hgb 7.7 L, Hct 22.9 L, MCV 88.1, MCH 29.6, MCHC 33.6, RDW Std Deviation 58.5 H, RDW Coeff of Francis 18.3 H, Plt Count 93 L, MPV 10.6, Immature Gran % (Auto) 1.200 H, Neut % (Auto) 63.5, Lymph % (Auto) 16.3 L, [place] % (Auto) 11.9 H, Eos % (Auto) 6.5 H, Baso % (Auto) 0.6, Absolute Neuts (auto) 4.3, Absolute Lymphs (auto) 1.10, Nucleated RBC % 0, Differential Comment SCANNED, Platelet Estimate MOD DEC, Sodium 133, Potassium 3.1 L, Chloride 95 L, Carbon Dioxide 30.3, Anion Gap 7, BUN 12, Creatinine 0.87, Estim Creat Clear Calc 112.61, Est GFR (MDRD) Non-Af 100, BUN/Creatinine Ratio 13.4, Glucose 195 H, Calcium 8.1, Total Bilirubin 1.61 H, AST 45 H, ALT 32, Alkaline Phosphatase 211 H, Total Protein 4.9 L, Albumin 2.0 L, Globulin 2.9, Albumin/Globulin Ratio 0.7 L 01/20/25 06:25: POC Glucose 164 H 01/20/25 11:49: POC Glucose 167 H Medications at Discharge Home Medications rifaximin 550 [...] tablet 650 mg PO BID supplement 11/21/24 thiamine HCl (vitamin B1) 100 mg [...] solution (Constulose) 15 ml PO TID PRN koztaeaotjok00/27/25 L.acidophil,salivari-Bifido bifidum-Strep thermoph 175 mg capsule 1 cap PO TID pobiotic #120 caps 12/02/24 cyclobenzaprine 10 mg tablet 10 mg PO QHS muscle relaxer 01/02/25 ferrous sulfate 325 mg (65 mg iron) tablet (FeroSul) 325 mg PO QODAY supplement 01/02/25 insulin glargine-yfgn 100 unit/mL (3 mL) subcutaneous pen 20 unit (0.2 mL) subcut QHS #0 mL 01/05/25 insulin lispro 100 unit/mL subcutaneous pen (Humalog KwikPen (U-100) Insulin) 10unit (0.1 mL) subcut TIDAC #0 mL 01/05/25 insulin lispro 100 unit/mL subcutaneous pen (Humalog KwikPen (U-100) Insulin) See Protocol subcut ACHS #0 mL 01/05/25 insulin glargine-yfgn 100 unit/mL (3 mL) subcutaneous pen 25 unit (0.25 mL) subcut DAILY #15 mL 01/21/25 spironolactone 100 mg tablet 100 mg PO DAILY 1 month #30 tabs 01/21/25 spironolactone 25 mg tablet 25 mg PO DAILY 30 days #30 tabs 01/21/25 Physical Exam Narrative Seen and examined Patient complain of itching in the leg and leg swelling. Potassium is still 3.1we will on spironolactone 100 mg daily therefore increased to 125 mg daily. BOYER cirrhosis. Epidural injection was canceled due to coagulopathy INR 2.0. Advised follow-up outpatient Patient admitted for complaint of sepsis due to UTI but now UTI resolved and patient complained of back pain and imaging showed compression fracture. His pain is better. Had paracentesis yesterday, 2650 mL Physical exam General: Alert, Oriented x3, Cooperative HEENT: Atraumatic, PERRLA, EOMI, Normocephalic. Oral: No Gingival or Mucosal Lesions/ Ulcerations Neck: Supple, No JVD, Negative Carotid Bruits Chest wall/Lungs: Air entry diminished in bilateral lung bases. No crepitation/rhonchi Cardiovascular: Regular rate and rhythm, Normal S1,S2, No M/G/R Abdomen: Bowel Sounds Present, Soft, Non Tender, mildly distended abdomen, status post paracentesis : No dysuria. No renal angle tenderness. No suprapubic tenderness. Extremities: Bilateral 2 plus pitting LE edema, Capillary Refill Less than 3 Seconds Skin: Mild bruise over abdomen Musculoskeletal: No Tenderness to Palpation of Joints or Extremities Spine: Tenderness present over lumbar spine. Neurological: Cranial nerves II-XII grossly intact, DTR 2+/4. No acute focal neurological deficit. Psych/Mental Status: Normal Affect, Appropriate. Weight / BMI Weight Weight: 242 lb 11.663 oz Body Mass Index (BMI) 35.8 ABG / Lab / Microbiology Data 01/20/25 04:59 01/21/25 06:10 Laboratory: Laboratory Results - last 24 hr 01/18/25 14:32: Fl Pathologist Comment Reviewed 01/20/25 11:49: POC Glucose 167 H 01/20/25 16:57: POC Glucose 206 H 01/20/25 21:42: POC Glucose 188 H 01/21/25 06:10: Sodium 133, Potassium 3.1 L, Chloride 96 L, Carbon Dioxide 29.7,Anion Gap 7, BUN 13, Creatinine 0.86, Estim Creat Clear Calc 114.50, Est GFR (MDRD) Non-Af 100, BUN/Creatinine Ratio 15.6, Glucose 199 H, Calcium 8.1, Total Bilirubin 1.52 H, AST 48 H, ALT 28, Alkaline Phosphatase 204 H, Total Protein 4.7 L, Albumin 2.1 L, Globulin 2.6, Albumin/Globulin Ratio 0.8 L 01/21/25 06:41: POC Glucose 199 H Microbiology: Microbiology 01/18/25 14:32 Fluid - Ascites Gram Stain - Final 01/18/25 14:32 Fluid - Ascites Body Fluid Culture - Preliminary No growth-Final to follow 01/18/25 19:00 Stool Stool Occult Blood (AUDIE) - Final 01/09/25 13:35 Blood Culture (Wb) - Right Hand Blood Culture - Final No growth in 5 days. 01/09/25 13:30 Blood Culture (Wb) - Finger Blood Culture - Final No growth in 5 days. 01/09/25 13:28 Urine Catheter - Catheter Urine Culture - Final Yeast, not Mary albicans D/C Instructions DC O2, CPAP, BIPAP Needs [...] Simvastatin 80mg Discharge Plan Admission Admit Date/Time: 01/09/25 14:16 Attending Provider: Anurag Irene Primary Care Provider: Josy Elias Consulting Providers: Yaritza Leo; Jefferson Malave; Aleyda Bautista; Cielo Tovar Instructions Additional Instructions / Restrictions: Follow[facility] in [facility] hepatology/GI. Discharge Orders/Prescriptions Prescriptions: New spironolactone 25 mg Tablet 25 mg PO DAILY 30 Days Qty: 30 2RF Rx Instructions: total 125 mg daily Hold for serum potassium more than 5.0 spironolactone 100 mg tablet 100 mg PO DAILY 30 Days Qty: 30 2RF Rx Instructions: Hold for serum potassium more than 5.0. Total 125 mg daily. Continued Xifaxan 550 mg Tablet 550 mg PO BID Qty: 60 0RF cyclobenzaprine 10 mg tablet 10 mg PO QHS ferrous sulfate [FeroSul] 325 mg (65 mg iron) tablet 325 mg PO QODAY insulin lispro [Humalog KwikPen Insulin] 100 unit/mL [...] 20 unit subcut QHS Qty: 0 0RF folic acid 1 mg tablet 1 mg [...] release 24 hr 500 mg PO QPM thiamine HCl (vitamin B1) 100 mg tablet [...] 1 cap PO TID Qty: 120 0RF Changed insulin glargine-yfgn 100 unit/mL (3 mL) Insulin Pen 25 unit subcut DAILY Qty: 15 3RF Discontinued nadolol 20 mg tablet 20 mg PO DAILY spironolactone 50 mg tablet 100 mg PO DAILY potassium, sodium phosphates 280-160-250 mg Powder In Packet 1 packet PO BID Qty: 100 0RF Referrals / Follow Up: Josy Elias NP-C [Primary Care Provider] - Within 2 Weeks Disposition Disposition (needs filled in before D/C Order can be placed): [facility] Facility Charges/Coding Visit Charges Inpatient E&M: 29526 Disch Hosp >30min 01/21/25 1117 <Electronically signed by Anurag Irene MD> Cosigner Signature (if applicable): CC: YG Elias; Dr. Anurag Irene MD~ Signed ADDENDUM by Dr. Anurag Irene MD on 01/21/25 at 1329 Addendum Prescription for oxycodone total 7 tablets ordered. OARSS reviewed. No unintentional overdose risk score, 0. Norc score 0 point 01/21/25 1329<Electronically signed by Anurag Irene MD> Cosigner Signature (if applicable): cc: YG Elias; Dr. Anurag Irene MD ~* Signed [facility] Work Phone: 1(386) 733-923906-20-2025 [facility]06-19-2025 Progress note Author Anurag Irene [facility] Note Date/Time January 20, 2025 2:40 pm [facility] Medical Records Department [address] [place] [address] Progress Note - Hospitalist 01/20/25 1436 MR#: [id number] Acct: [id number] Name: FRANKLIN ARCHULETA Rep #:[id number] : 1965 59 From: Anurag Lucero PCP: YG Pena Status:ADM I N Location: [place] [address] Reason for Visit Reason for Visit: Diagnoses Sepsis, unspecified organism (01/09/25) Elevated white blood cell count, unspecified (01/09/25) Acidosis, unspecified (01/09/25) Umbilical hernia without obstruction or gangrene (01/09/25) Spinal stenosis, lumbar region with neurogenic claudication (01/09/25) Collapsed vertebra, not elsewhere classified, thoracic region, initial encounterfor fracture (01/09/25) Acute kidney failure, unspecified (01/09/25) Unspecified abnormal findings in urine (01/09/25) Objective Data Objective Data Vital Signs: Vital Signs Temp Pulse Resp BP Pulse Ox O2 Del Method 98.3 F 94 18 119/82 H 96 Room Air 01/20/25 12:35 01/20/25 12:35 01/20/25 12:35 01/20/25 12:35 01/20/25 12:35 01/20/25 12:35 Oxygen Delivery Method Room Air Weight: 240 lb 4.862 oz Body Mass Index (BMI) 35.4 Intake & Output: Intake and Output for Last 24 Hours 01/18/25 01/19/25 01/20/25 23:59 23:59 23:59 Intake Total 1370.5 / 1370.5 1320 / 1320 240 / 240 Output Total 4100 / 4100 675 / 975 1005 / 1005 Balance -2729.5 / -2729.5 645 / 345 -765 / -765 Lab / Micro Data 01/20/25 04:59 01/20/25 04:59 Labs: Laboratory Results - last 24 hr 01/18/25 14:32: Fl Pathologist Comment Reviewed 01/19/25 17:19: POC Glucose 268 H 01/19/25 21:47: POC Glucose 225 H 01/20/25 04:59: WBC 6.8, RBC 2.60 L, Hgb 7.7 L, Hct 22.9 L, MCV 88.1, MCH 29.6, MCHC 33.6, RDW Std Deviation 58.5 H, RDW Coeff of Francis 18.3 H, Plt Count 93 L, MPV 10.6, Immature Gran % (Auto) 1.200 H, Neut % (Auto) 63.5, Lymph % (Auto) 16.3 L, [place] % (Auto) 11.9 H, Eos % (Auto) 6.5 H, Baso % (Auto) 0.6, Absolute Neuts (auto) 4.3, Absolute Lymphs (auto) 1.10, Nucleated RBC % 0, Differential Comment SCANNED, Platelet Estimate MOD DEC, Sodium 133, Potassium 3.1 L, Chloride 95 L, Carbon Dioxide 30.3, Anion Gap 7, BUN 12, Creatinine 0.87, Estim Creat Clear Calc 112.61, Est GFR (MDRD) Non-Af 100, BUN/Creatinine Ratio 13.4, Glucose 195 H, Calcium 8.1, Total Bilirubin 1.61H, AST 45 H, ALT 32, Alkaline Phosphatase 211 H, Total Protein 4.9 L, Albumin 2.0 L, Globulin 2.9, Albumin/Globulin Ratio 0.7 L 01/20/25 06:25: POC Glucose 164 H 01/20/25 11:49: POC Glucose 167 H Micro: Microbiology 01/18/25 14:32 Fluid - Ascites Gram Stain - Final 01/18/25 14:32 Fluid - Ascites Body Fluid Culture - Preliminary No growth-Final to follow 01/18/25 19:00 Stool Stool Occult Blood (AUDIE) - Final 01/09/25 13:35 Blood Culture (Wb) - Right Hand Blood Culture - Final No growth in 5 days. 01/09/25 13:30 Blood Culture (Wb) - Finger Blood Culture - Final No growth in 5 days. 01/09/25 13:28 Urine Catheter - Catheter Urine Culture - Final Yeast, not Mary albicans Physical Exam Narrative Seen and examined Patient complain of itching in the leg and leg swelling. BOYER cirrhosis. Epidural injection was canceled due to coagulopathy INR 2.0. Advised follow-up outpatient Patient admitted for complaint of sepsis due to UTI but now UTI resolved and patient complained of back pain and imaging showed compression fracture. His pain is better. Had paracentesis yesterday, 2650 mL Physical exam General: Alert, Oriented x3, Cooperative HEENT: Atraumatic, PERRLA, EOMI, Normocephalic. Oral: No Gingival or Mucosal Lesions/ Ulcerations Neck: Supple, No JVD, Negative Carotid Bruits Chest wall/Lungs: Air entry diminished in bilateral lung bases. No crepitation/rhonchi Cardiovascular: Regular rate and rhythm, Normal S1,S2, No M/G/R Abdomen: Bowel Sounds Present, Soft, Non Tender, mildly distended abdomen, status post paracentesis : No dysuria. No renal angle tenderness. No suprapubic tenderness. Extremities: Bilateral 2 plus pitting LE edema, Capillary Refill Less than 3 Seconds Skin: Mild bruise over abdomen Musculoskeletal: No Tenderness to Palpation of Joints or Extremities Spine: Tenderness present over lumbar spine. Neurological: Cranial nerves II-XII grossly intact, DTR 2+/4. No acute focal neurological deficit. Psych/Mental Status: Normal Affect, Appropriate. Assessment & Plan Assessment/Plan (1) Sepsis: (2) Abnormal urinalysis: PLAN: Plan #Sepsis due to UTI * Hypotension has resolved. Blood pressure stable. * He does have a history of known left-sided staghorn calculi and stenting and follows with Dr. Rascon * Continue broad-spectrum antibiotics with vancomycin and meropenem * Blood culture showed no growth after 5 days. Urine cultures growing yeast not Mary albicansundefined 01/17: Sepsis resolved. Urine culture shows is not Mary albicans. That mightbe commensal/colonization. Blood culture negative for 5 days. Patient is on meropenem since admission 01/09 had total 8 days of antibiotics therefore discontinued. Patient also had vancomycin vancomycin in the beginning of the admission #Lactic acidosis: Likely due to sepsis. Resolved with hydration. #ISABEL: Resolved. #Hypokalemia: will replace and trend. 01/18 interval severe hypokalemia, potassium of IV bolus ordered. 01/19: Hypokalemia: Potassium, K3.1. On spironolactone 50 mg p.o. twice daily. #Umbilical hernia * Was evaluated by general surgery and the hernia was reduced. Is no longer tender. * #History of compression fractures of T8-T12 * PT OT on board. Fall precautions. * patient still complaining of severe back pain. * MRI of the lumbar spine showed Schmorl's nodules at multiple vertebral endplates of the lower thoracic and lumbar spine with associated anterior wedging of T11 and 12 and review of the thoracic spine MRI images demonstrated Schmorl's nodes at multiple vertebral endplates throughout the thoracic spine with associated anterior wedging of multiple blastic vertebral bodies consistent with Shermans kyphosis and multilevel facet arthropathy of the lumbar spine with lateral recess stenosis and foraminal narrowing. * Thoracic MRI showed abnormal marrow signal at T12 and L1 with no acute compression deformity identified and cannot exclude metastatic involvement of these 2 vertebral bodies and mild spinal stenosis of the level of T10-11 and T11-T12 * Patient PSA is normal. CT of the abdomen pelvis showed no evidence of any malignancy. I did get a CT of the chest today also which showed no evidence of malignancy. His total protein level is not elevated and total albumin level is also normal * He does have a history of smoking but as stated the CT chest showed no evidence of any lung nodules or malignancy. * CT of the chest showed partially visualized severe degenerative changes of T11 and 12 with areas of erosive changes and lytic lesions as well as cirrhosis and ascites. * Pain management consulted. WIll see patient on Friday * Patient will need follow-up on outpatient basis with PCP for further workup for any malignancy. * PT OT on board. Fall precautions. 01/17: We called Dr. Bautista and he said either he or his partner will see the patient and recommend accordingly. Patient has pre-CERT for going to defined SNF. 01/19: Discussed with Dr. Carmichael and he said patient high risk for epidural necessary with INR 2.0. Advised outpatient follow-up and procedure. #Hypomagnesemia: Resolved with replacement. #History of nonalcoholic liver disease with cirrhosis * On rifaximin and lactulose. Aldactone and nadolol held on account of hypotension 01/18: Patient currently on midodrine. Aldactone resumed from tomorrow a.m. ultrasound abdomen ordered for paracentesis and diagnostic labs ordered. BP is low,105/55. 01/19: Patient had 2650 mL fluid drained. Peritoneal fluid shows WBC 143, polymorphs 35, mononuclear 108 therefore SBP ruled out. Fluid total protein 0.3consistent with portal hypertensive ascites. Patient has hypokalemia 3.0, sodium 132. On spironolactone 25 mg twice daily increased to 50 mg twice daily. Hypoalbuminemia, hypergammaglobulinemia, A/G ratio 0.9. 01/20: Furosemide 20 mg daily and spironolactone 50 mg twice daily. Patient has itching in lower extremity therefore Calmoseptine ointment and Atarax ordered. #Acute on chronic anemia * Hemoglobin is 7.9 today; he was transfused with one unit of pRBC during this admission. Baseline is around 8-9 though he has been as low as 7.2 before. * No clear evidence of bleeding. * May be due to his history of liver disease also. * stool for ocult blood negative 01/19: H&H 7.6/22.3%. Platelet count 107K. 01/20: H&H 7.7, platelet count 93K. #Chronic thrombocytopenia: Platelet count is about 109K. It has been about 109 K- 130K #History of venous thrombosis: * Not anticoagulated due to history of hematuria. Will monitor. #History of hypotension: On midodrine. Continue midodrine #GERD: On PPI #Type 2 diabetes mellitus: On Lantus. Insulin sliding scale. Accu-Cheks ACHS. #Hyperlipidemia: On statin DVT prophylaxis: SCDs Microbiology Past 72 Hours 01/18/25 14:32 Fluid - Ascites Gram Stain - Final 01/18/25 14:32 Fluid - Ascites Body Fluid Culture - Preliminary No growth-Final to follow 01/18/25 19:00 Stool Stool Occult Blood (AUDIE) - Final Laboratory Results 01/18/25 14:32: Fl Pathologist Comment Reviewed 01/19/25 17:19: POC Glucose 268 H 01/19/25 21:47: POC Glucose 225 H 01/20/25 04:59: WBC 6.8, RBC 2.60 L, Hgb 7.7 L, Hct 22.9 L, MCV 88.1, MCH 29.6, MCHC 33.6, RDW Std Deviation 58.5 H, RDW Coeff of Francis 18.3 H, Plt Count 93 L, MPV 10.6, Immature Gran % (Auto) 1.200 H, Neut % (Auto) 63.5, Lymph % (Auto) 16.3 L, [place] % (Auto) 11.9 H, Eos % (Auto) 6.5 H, Baso % (Auto) 0.6, Absolute Neuts (auto) 4.3, Absolute Lymphs (auto) 1.10, Nucleated RBC % 0, Differential Comment SCANNED, Platelet Estimate MOD DEC, Sodium 133, Potassium 3.1 L, Chloride 95 L, Carbon Dioxide 30.3, Anion Gap 7, BUN 12, Creatinine 0.87, Estim Creat Clear Calc 112.61, Est GFR (MDRD) Non-Af 100, BUN/Creatinine Ratio 13.4, Glucose 195 H, Calcium 8.1, Total Bilirubin 1.61 H, AST 45 H, ALT 32, Alkaline Phosphatase 211 H, Total Protein 4.9 L, Albumin 2.0 L, Globulin 2.9, Albumin/Globulin Ratio 0.7 L 01/20/25 06:25: POC Glucose 164 H 01/20/25 11:49: POC Glucose 167 H Charges/Coding Visit Charges Inpatient E&M: 14898 Subs Hosp L2 01/20/25 1440 <Electronically signed by Anurag Irene MD> Cosigner Signature (if applicable): CC: ~ Signed [facility] Work Phone: 1([phone] Progress note Author Anurag Irene [facility] Note Date/Time January 19, 2025 4:46 pm [facility] Medical Records Department [address] [place] [id number] Progress Note - Hospitalist 01/19/25918 MR#: [id number] Acct: [id number] Name: FRANKLIN ARCHULETA Rep #:[id number] : 1965 59 From: Anurag Lucero PCP: YG Pena Status:ADM I N Location: [place] [address] Reason for Visit Reason for Visit: Diagnoses Sepsis, unspecified organism (01/09/25) Elevated white blood cell count, unspecified (01/09/25) Acidosis, unspecified (01/09/25) Umbilical hernia without obstruction or gangrene (01/09/25) Spinal stenosis, lumbar region with neurogenic claudication (01/09/25) Collapsed vertebra, not elsewhere classified, thoracic region, initial encounterfor fracture (01/09/25) Acute kidney failure, unspecified (01/09/25) Unspecified abnormal findings in urine (01/09/25) Objective Data Objective Data Vital Signs: Vital Signs Temp Pulse Resp BP Pulse Ox O2 Del Method 98.0 F 101 H 17 113/71 99 Room Air 01/19/25 03:45 01/19/25 03:45 01/19/25 03:45 01/19/25 03:45 01/19/25 03:45 01/19/25 03:45 Oxygen Delivery Method Room Air Weight: 240 lb 8.389 oz Body Mass Index (BMI) 35.5 Intake & Output: Intake and Output for Last 24 Hours 01/17/25 01/18/25 01/19/25 23:59 23:59 23:59 Intake Total 3473.33 / 3473.33 1370.5 / 1370.5 240 / 240 Output Total 1325 / 1325 4100 / 4100 Balance 2148.33 / 2148.33 -2729.5 / -2729.5 240 / 240 Lab / Micro Data 01/19/25 05:12 01/19/25 05:12 Labs: Laboratory Results - last 24 hr 01/18/25 11:30: POC Glucose 142 H 01/18/25 14:32: Fluid Source PERITONEAL FLUID, Fluid Color LT YEL, Fluid Appearance CLEAR, Fluid WBC 0.143, Fluid RBC 218, Fluid Tot Cell Count 0.172, Fld Polynuclear WBCs # 0.035, Fld Polynuclear WBCs % 24.4, Fluid Mononuclear WBCs 0.108, Fld Mononuclear WBCs % 75.6, Fluid Neutrophils 20, Fluid [id number], Fluid Monocytes 3, Fluid Macrophages 46, Fluid Other Cells 7, Fl PathologistComment May follow, Fluid Glucose 154, Fluid Total Protein 0.3, Fluid Comment 2 SEE COMMENT 01/18/25 16:11: POC Glucose 158 H 01/18/25 21:08: POC Glucose 250 H 01/19/25 05:12: WBC 7.9, RBC 2.51 L, Hgb 7.6 L, Hct 22.3 L, MCV 88.8, MCH 30.3, MCHC 34.1, RDW Std Deviation 59.0 H, RDW Coeff of Francis 18.6 H, Plt Count 107 L, MPV 11.1, Immature Gran % (Auto) 1.400 H, Neut % (Auto) 67.7, Lymph % (Auto) 13.6 L, [place] % (Auto) 11.0 H, Eos % (Auto) 5.8 H, Baso % (Auto) 0.5, Absolute Neuts (auto) 5.4, Absolute Lymphs (auto) 1.08, Nucleated RBC % 0, PT 22.8 H, INR 2.0, APTT 46.6 H, Sodium 132 L, Potassium 3.0 L, Chloride 94 L, Carbon Dioxide 30.7, Anion Gap 7, BUN 11, Creatinine 1.05, Estim Creat Clear Calc 93.35, Est GFR (MDRD) Non-Af 82, BUN/Creatinine Ratio 10.4, Glucose 220 H, Calcium 7.9, Phosphorus 3.5, Magnesium 1.7, Total Bilirubin 1.70 H, Direct Bilirubin 1.00 H, AST 52 H, ALT 34, Alkaline Phosphatase 225 H, Total Protein 4.8 L, Albumin 2.2 L 01/19/25 05:12: Albumin 2.2 L, Globulin 2.6, Albumin/Globulin Ratio 0.9 01/19/25 06:11: POC Glucose 198 H Micro: Microbiology 01/18/25 19:00 Stool Stool Occult Blood (AUDIE) - Final 01/09/25 13:35 Blood Culture (Wb) - Right Hand Blood Culture - Final No growth in 5 days. 01/09/25 13:30 Blood Culture (Wb) - Finger Blood Culture - Final No growth in 5 days. 01/09/25 13:28 Urine Catheter - Catheter Urine Culture - Final Yeast, not Mary albicans Radiography Diagnostic Testing: Radiology Impression Abdomen Ultrasound 01/18/25 13:02 IMPRESSION: Cirrhosis. Splenomegaly. Nonvisualization of the gallbladder which may be contracted, surgically absent, or obscured by bowel gas. Correlate with surgical history. Reading Location: [id number] Paracentesis Ultrasound 01/18/25 13:08 IMPRESSION: Right lower quadrant marker was applied for paracentesis with drain the fluid volume of 2650 cc. Reading Location: [place] [address] Physical Exam Narrative Seen and examined Discussed with the pain management. Plan for epidural analgesia today for pain control. BOYER cirrhosis Patient admitted for complaint of sepsis due to UTI but now UTI resolved and patient complained of back pain and imaging showed compression fracture. His pain is better. Had paracentesis yesterday, 2650 mL Physical exam General: Alert, Oriented x3, Cooperative HEENT: Atraumatic, PERRLA, EOMI, Normocephalic. Oral: No Gingival or Mucosal Lesions/ Ulcerations Neck: Supple, No JVD, Negative Carotid Bruits Chest wall/Lungs: Air entry diminished in bilateral lung bases. No crepitation/rhonchi Cardiovascular: Regular rate and rhythm, Normal S1,S2, No M/G/R Abdomen: Bowel Sounds Present, Soft, Non Tender, mildly distended abdomen, status post paracentesis : No dysuria. No renal angle tenderness. No suprapubic tenderness. Extremities: Bilateral 2 plus pitting LE edema, Capillary Refill Less than 3 Seconds Skin: Mild bruise over abdomen Musculoskeletal: No Tenderness to Palpation of Joints or Extremities Spine: Tenderness present over lumbar spine. Neurological: Cranial nerves II-XII grossly intact, DTR 2+/4. No acute focal neurological deficit. Psych/Mental Status: Normal Affect, Appropriate. Assessment & Plan Assessment/Plan (1) Sepsis: (2) Abnormal urinalysis: PLAN: Plan #Sepsis due to UTI * Hypotension has resolved. Blood pressure stable. * He does have a history of known left-sided staghorn calculi and stenting and follows with Dr. Rascon * Continue broad-spectrum antibiotics with vancomycin and meropenem * Blood culture showed no growth after 5 days. Urine cultures growing yeast not Mary albicansundefined 01/17: Sepsis resolved. Urine culture shows is not Mary albicans. That mightbe commensal/colonization. Blood culture negative for 5 days. Patient is on meropenem since admission 01/09 had total 8 days of antibiotics therefore discontinued. Patient also had vancomycin vancomycin in the beginning of the admission #Lactic acidosis: Likely due to sepsis. Resolved with hydration. #ISABEL: Resolved. #Hypokalemia: will replace and trend. 01/18 interval severe hypokalemia, potassium of IV bolus ordered. #Umbilical hernia * Was evaluated by general surgery and the hernia was reduced. Is no longer tender. * #History of compression fractures of T8-T12 * PT OT on board. Fall precautions. * patient still complaining of severe back pain. * MRI of the lumbar spine showed Schmorl's nodules at multiple vertebral endplates of the lower thoracic and lumbar spine with associated anterior wedging of T11 and 12 and review of the thoracic spine MRI images demonstrated Schmorl's nodes at multiple vertebral endplates throughout the thoracic spine with associated anterior wedging of multiple blastic vertebral bodies consistent with Shermans kyphosis and multilevel facet arthropathy of the lumbar spine with lateral recess stenosis and foraminal narrowing. * Thoracic MRI showed abnormal marrow signal at T12 and L1 with no acute compression deformity identified and cannot exclude metastatic involvement of these 2 vertebral bodies and mild spinal stenosis of the level of T10-11 and T11-T12 * Patient PSA is normal. CT of the abdomen pelvis showed no evidence of any malignancy. I did get a CT of the chest today also which showed no evidence of malignancy. His total protein level is not elevated and total albumin level is also normal * He does have a history of smoking but as stated the CT chest showed no evidence of any lung nodules or malignancy. * CT of the chest showed partially visualized severe degenerative changes of T11 and 12 with areas of erosive changes and lytic lesions as well as cirrhosis and ascites. * Pain management consulted. WIll see patient on Friday * Patient will need follow-up on outpatient basis with PCP for further workup for any malignancy. * PT OT on board. Fall precautions. 01/17: We called Dr. Bautista and he said either he or his partner will see the patient and recommend accordingly. Patient has pre-CERT for going to defined SNF. 01/19: Discussed with Dr. Carmichael and he said patient high risk for epidural necessary with INR 2.0. Advised outpatient follow-up and procedure. #Hypomagnesemia: Resolved with replacement. #History of nonalcoholic liver disease with cirrhosis * On rifaximin and lactulose. Aldactone and nadolol held on account of hypotension 01/18: Patient currently on midodrine. Aldactone resumed from tomorrow a.m. ultrasound abdomen ordered for paracentesis and diagnostic labs ordered. BP is low,105/55. 01/19: Patient had 2650 mL fluid drained. Peritoneal fluid shows WBC 143, polymorphs 35, mononuclear 108 therefore SBP ruled out. Fluid total protein 0.3consistent with portal hypertensive ascites. Patient has hypokalemia 3.0, sodium 132. On spironolactone 25 mg twice daily increased to 50 mg twice daily. Hypoalbuminemia, hypergammaglobulinemia, A/G ratio 0.9. #Acute on chronic anemia * Hemoglobin is 7.9 today; he was transfused with one unit of pRBC during this admission. Baseline is around 8-9 though he has been as low as 7.2 before. * No clear evidence of bleeding. * May be due to his history of liver disease also. * stool for ocult blood negative 01/19: H&H 7.6/22.3%. Platelet count 100 7K. #Chronic thrombocytopenia: Platelet count is about 109K. It has been about 109 K- 130K #History of venous thrombosis: * Not anticoagulated due to history of hematuria. Will monitor. #History of hypotension: On midodrine. Continue midodrine #GERD: On PPI #Type 2 diabetes mellitus: On Lantus. Insulin sliding scale. Accu-Cheks ACHS. #Hyperlipidemia: On statin DVT prophylaxis: SCDs 01/18/25 11:30: POC Glucose 142 H 01/18/25 14:32: Fluid Source PERITONEAL FLUID, Fluid Color LT YEL, Fluid Appearance CLEAR, Fluid WBC 0.143, Fluid RBC 218, Fluid Tot Cell Count 0.172, Fld Polynuclear WBCs # 0.035, Fld Polynuclear WBCs % 24.4, Fluid Mononuclear WBCs 0.108, Fld Mononuclear WBCs % 75.6, Fluid Neutrophils 20, Fluid [id number], Fluid Monocytes 3, Fluid Macrophages 46, Fluid Other Cells 7, Fl PathologistComment May follow, Fluid Glucose 154, Fluid Total Protein 0.3, Fluid Comment 2 SEE COMMENT 01/18/25 16:11: POC Glucose 158 H 01/18/25 21:08: POC Glucose 250 H 01/19/25 05:12: WBC 7.9, RBC 2.51 L, Hgb 7.6 L, Hct 22.3 L, MCV 88.8, MCH 30.3, MCHC 34.1, RDW Std Deviation 59.0 H, RDW Coeff of Francis 18.6 H, Plt Count 107 L, MPV 11.1, Immature Gran % (Auto) 1.400 H, Neut % (Auto) 67.7, Lymph % (Auto) 13.6 L, [place] % (Auto) 11.0 H, Eos % (Auto) 5.8 H, Baso % (Auto) 0.5, Absolute Neuts (auto) 5.4, Absolute Lymphs (auto) 1.08, Nucleated RBC % 0, PT 22.8 H, INR 2.0, APTT 46.6 H, Sodium 132 L, Potassium 3.0 L, Chloride 94 L, Carbon Dioxide 30.7, Anion Gap 7, BUN 11, Creatinine 1.05, Estim Creat Clear Calc 93.35, Est GFR (MDRD) Non-Af 82, BUN/Creatinine Ratio 10.4, Glucose 220 H, Calcium 7.9, Phosphorus 3.5, Magnesium 1.7, Total Bilirubin 1.70 H, Direct Bilirubin 1.00 H, AST 52 H, ALT 34, Alkaline Phosphatase 225 H, Total Protein 4.8 L, Albumin 2.2 L 01/19/25 05:12: Albumin 2.2 L, Globulin 2.6, Albumin/Globulin Ratio 0.9 01/19/25 06:11: POC Glucose 198 H Charges/Coding Visit Charges Inpatient E&M: 46609 Subs Hosp L2 01/19/25 1646 <Electronically signed by Anurag Irene MD> Cosigner Signature (if applicable): CC: ~ Signed [facility] Work Phone: [phone] Radiology Diagnostic study [facility]06-17-2025 Radiology Diagnostic study [facility]06-17-2025 Progress note Author Anurag Irene [facility] Note Date/Time January 18, 2025 1:14 pm [facility] Medical Records Department [address] [place] [address] Progress Note - Hospitalist 01/18/25 1302 MR#: [id number] Acct: [id number] Name: FRANKLIN ARCHULETA Rep #:[id number] : 1965 59 From: Anurag Lucero PCP: YG Pena Status:ADM I N Location: [place] [address] Reason for Visit Reason for Visit: Diagnoses Sepsis, unspecified organism (01/09/25) Elevated white blood cell count, unspecified (01/09/25) Acidosis, unspecified (01/09/25) Umbilical hernia without obstruction or gangrene (01/09/25) Spinal stenosis, lumbar region with neurogenic claudication (01/09/25) Collapsed vertebra, not elsewhere classified, thoracic region, initial encounterfor fracture (01/09/25) Acute kidney failure, unspecified (01/09/25) Unspecified abnormal findings in urine (01/09/25) Objective Data Objective Data Vital Signs: Vital Signs Temp Pulse Resp BP Pulse Ox O2 Del Method 97.5 F L 94 16 105/55 L 95 Room Air 01/18/25 12:48 01/18/25 12:48 01/18/25 12:48 01/18/25 12:48 01/18/25 12:48 01/18/25 12:10 Oxygen Delivery Method Room Air Weight: 245 lb 5.992 oz Body Mass Index (BMI) 36.2 Intake & Output: Intake and Output for Last 24 Hours 01/16/25 01/17/25 01/18/25 23:59 23:59 23:59 Intake Total 3580 / 3820 3473.33 / 3473.33 420 / 420 Output Total 725 / 975 1325 / 1325 775 / 775 Balance 2855 / 2845 2148.33 / 2148.33 -355 / -355 Lab / Micro Data 01/18/25 05:21 01/18/25 05:21 Labs: Laboratory Results - last 24 hr 01/17/25 16:45: POC Glucose 236 H 01/17/25 21:04: POC Glucose 180 H 01/18/25 05:21: WBC 8.1, RBC 2.56 L, Hgb 7.7 L, Hct 22.6 L, MCV 88.3, MCH 30.1, MCHC 34.1, RDW Std Deviation 58.9 H, RDW Coeff of Francis 18.7 H, Plt Count 107 L, MPV 10.5, Immature Gran % (Auto) 1.200 H, Neut % (Auto) 68.1, Lymph % (Auto) 14.0 L, [place] % (Auto) 10.0, Eos % (Auto) 6.1 H, Baso % (Auto) 0.6, Absolute Neuts (auto) 5.5, Absolute Lymphs (auto) 1.13, Nucleated RBC % 0, PT 22.9 H, INR2.0, Sodium 132 L, Potassium 2.8 L, Chloride 92 L, Carbon Dioxide 31.5, Anion Gap 8, BUN 8, Creatinine 0.85, Estim Creat Clear Calc 116.49, Est GFR (MDRD) Non-Af 101, BUN/Creatinine Ratio 9.8 L, Glucose 228 H, Calcium 7.7, Phosphorus 3.7, Magnesium 1.6 01/18/25 06:43: POC Glucose 171 H 01/18/25 11:30: POC Glucose 142 H Micro: Microbiology 01/09/25 13:35 Blood Culture (Wb) - Right Hand Blood Culture - Final No growth in 5 days. 01/09/25 13:30 Blood Culture (Wb) - Finger Blood Culture - Final No growth in 5 days. 01/09/25 13:28 Urine Catheter - Catheter Urine Culture - Final Yeast, not Mary albicans Physical Exam Narrative Seen and examined Discussed with the pain management. Plan for epidural analgesia today [facility] control[facility] of [facility] due to [facility] but now UTI resolved and patient complained of back pain and imaging showed compression fracture. Complain of pain 8/10 on moving/turning around on the bed Physical exam General: Alert, Oriented x3, Cooperative HEENT: Atraumatic, PERRLA, EOMI, Normocephalic. Oral: No Gingival or Mucosal Lesions/ Ulcerations Neck: Supple, No JVD, Negative Carotid Bruits Chest wall/Lungs: Air entry diminished in bilateral lung bases. No crepitation/rhonchi Cardiovascular: Regular rate and rhythm, Normal S1,S2, No M/G/R Abdomen: Bowel Sounds Present, Soft, Non Tender, mildly distended abdomen, suspected ascites : No dysuria. No renal angle tenderness. No suprapubic tenderness. Extremities: Bilateral 2-3+ pitting LE edema, Capillary Refill Less than 3 Seconds Skin: Mild bruise over abdomen Musculoskeletal: No Tenderness to Palpation of Joints or Extremities Spine: Tenderness present over lumbar spine. Neurological: Cranial nerves II-XII grossly intact, DTR 2+/4. No acute focal neurological deficit. Psych/Mental Status: Normal Affect, Appropriate. Assessment & Plan Assessment/Plan (1) Sepsis: (2) Abnormal urinalysis: PLAN: Plan #Sepsis due to UTI * Hypotension has resolved. Blood pressure stable. * He does have a history of known left-sided staghorn calculi and stenting and follows with Dr. Rascon * Continue broad-spectrum antibiotics with vancomycin and meropenem * Blood culture showed no growth after 5 days. Urine cultures growing yeast not Mary albicansundefined 01/17: Sepsis resolved. Urine culture shows is not Mary albicans. That mightbe commensal/colonization. Blood culture negative for 5 days. Patient is on meropenem since admission 01/09 had total 8 days of antibiotics therefore discontinued. Patient also had vancomycin vancomycin in the beginning of the admission #Lactic acidosis: Likely due to sepsis. Resolved with hydration. #ISABEL: Resolved. #Hypokalemia: will replace and trend. 01/08 interval severe hypokalemia, potassium of IV bolus ordered. #Umbilical hernia * Was evaluated by general surgery and the hernia was reduced. Is no longer tender. * #History of compression fractures of T8-T12 * PT OT on board. Fall precautions. * patient still complaining of severe back pain. * MRI of the lumbar spine showed Schmorl's nodules at multiple vertebral endplates of the lower thoracic and lumbar spine with associated anterior wedging of T11 and 12 and review of the thoracic spine MRI images demonstrated Schmorl's nodes at multiple vertebral endplates throughout the thoracic spine with associated anterior wedging of multiple blastic vertebral bodies consistent with Shermans kyphosis and multilevel facet arthropathy of the lumbar spine with lateral recess stenosis and foraminal narrowing. * Thoracic MRI showed abnormal marrow signal at T12 and L1 with no acute compression deformity identified and cannot exclude metastatic involvement of these 2 vertebral bodies and mild spinal stenosis of the level of T10-11 and T11-T12 * Patient PSA is normal. CT of the abdomen pelvis showed no evidence of any malignancy. I did get a CT of the chest today also which showed no evidence of malignancy. His total protein level is not elevated and total albumin level is also normal * He does have a history of smoking but as stated the CT chest showed no evidence of any lung nodules or malignancy. * CT of the chest showed partially visualized severe degenerative changes of T11 and 12 with areas of erosive changes and lytic lesions as well as cirrhosis and ascites. * Pain management consulted. WIll see patient on Friday * Patient will need follow-up on outpatient basis with PCP for further workup for any malignancy. * PT OT on board. Fall precautions. 01/17: We called Dr. Bautista and he said either he or his partner will see the patient and recommend accordingly. Patient has pre-CERT for going to defined SNF. #Hypomagnesemia: Resolved with replacement. #History of nonalcoholic liver disease with cirrhosis * On rifaximin and lactulose. Aldactone and nadolol held on account of hypotension 01/18: Patient currently on midodrine. Aldactone resumed from tomorrow a.m. ultrasound abdomen ordered for paracentesis and diagnostic labs ordered. BP is low,105/55. #Acute on chronic anemia * Hemoglobin is 7.9 today; he was transfused with one unit of pRBC during this admission. Baseline is around 8-9 though he has been as low as 7.2 before. * No clear evidence of bleeding. * May be due to his history of liver disease also. * stool for ocult blood pending #Chronic thrombocytopenia: Platelet count is about 109K. It has been about 109 K- 130K #History of venous thrombosis: * Not anticoagulated due to history of hematuria. Will monitor. #History of hypotension: On midodrine. Continue midodrine #GERD: On PPI #Type 2 diabetes mellitus: On Lantus. Insulin sliding scale. Accu-Cheks ACHS. #Hyperlipidemia: On statin DVT prophylaxis: SCDs Charges/Coding Visit Charges Inpatient E&M: 52870 Subs Hosp L2 01/18/25 1314 <Electronically signed by Anurag Irene MD> Cosigner Signature (if applicable): CC: ~ Signed [facility] Work Phone: 1([phone] Consult note Author Mohit Santos [facility] Note Date/Time January 18, 2025 12:[address] [facility] Medical Records Department [address] [place] [id number] Pre-Anesthesia Evaluation 01/18/25 1246 MR#: [id number] Acct: [id number] Name: FRANKLIN ARCHULETA Rep #:[id number] : 1965 59 From: Mohit Santos MD PCP: YG Pena Status:ADM I N Y Race: C Location: [place] [address] 2-1 ASA Classification* ASA Classification ASA Classification: 3 (Recent sepsis, ISABEL, UTI, hypokalemia ) Assessment & Plan Anesthesia* Anesthesia Assessment Anesthesia Assessment: Discussed sedation and/or anesthesia options, risks, benefits, and alternatives with patient/parents/legal guardian/POA. Questions invited. The patient/parents/legal guardian/POA seems to understand and agrees to proceedwith anesthesia plan. Reviewed the physical assessment, medical history, allergy history and patient home medications list prior to surgery/procedure/anesthetic and documented any changes. Performed airway and anesthesia risk assessments. Anesthesia Type Anesthesia Type: MAC History Source History Obtained from:: Patient and Chart Anesthesia Focused Assessment* Temperature: 97.5 F Pulse Rate: 94 Blood Pressure: 105/55 Respiratory Rate: 16 Pulse Ox: 95 Airway Assessment Mouth opens: >3 cm Mallampati Score: III Teeth Condition: Chipped/Broken (very poor dentition, many missing teeth) and Missing Labs Anesthesia Preop lab: CBC WBC 8.1 K/mm3 (4.4-11.0) 01/18/25 05:01/18/25 RBC 2.56 M/mm3 (4.6-6.2) L 01/18/25 05:01/18/25 Hgb 7.7 g/dL (13.0-16.5) L 01/18/25 05:01/18/25 Hct 22.6 % (40-54) L 01/18/25 05:01/18/25 Plt Count 107 K/mm3 (150-450) L 01/18/25 05:01/18/25 CHEMISTRY Potassium 2.8 mmol/L (3.3-5.1) L 01/18/25 05:01/18/25 Sodium 132 mmol/L (133-145) L 01/18/25 05:01/18/25 Magnesium 1.6 mg/dL (1.5-2.2) 01/18/25 05:01/18/25 Phosphorus 3.7 mg/dL (2.7-4.5) 01/18/25 05:01/18/25 BUN 8 mg/dL (4-19) 01/18/25 05:01/18/25 Creatinine 0.85 mg/dL (0.70-1.20) 01/18/25 05:01/18/25 Glucose 228 mg/dL (70-99) H 01/18/25 05:01/18/25 POC Glucose 142 mg/dL (74-106) H 01/18/25 11:30 01/18/25 TSH 0.826 uIU/mL (0.358-3.740) 09/04/24 23:07 08/28 COAG PT 22.9 SECONDS (11.7-14.9) H 01/18/25 05:01/02 Pre-Assessment Diagnosis/Proposed Procedure Planned Operative Procedure(s): Lumbar steroid injection L1/L2 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 - kier boiler: 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 - kier boiler Hx Hospitalization Any Problems With Anesthesia No 01/18/25 09:01 Cholinesterase deficiency No 01/18/25 09:01 You/Your Family Experience No 01/18/25 09:01 fever (hyperthermia) with Relationship Recent Exposure to Contagious No 01/18/25 09:01 Disease Does patient have nerve No 01/18/25 09:01 stimulator Patient instructed to have device shut off --Does patient have Pacemaker No 01/18/25 08:57 or ICD? When Was Last Pacemaker Check QUESTION #4 FULL TEXT: You/Your Family Experience fever (hyperthermia) with Anesthesia Last Oral Intake Last Oral intake: Last Oral Intake NPO since 00:01 01/18/25 08:57 Meds taken in AM with sips of Yes 01/18/25 08:57 water? Meds patient instructed to midodrine 01/18/25 08:57 take am of surgery tylenol PONV PONV - kier boiler: PONV - kier boiler Female HX of Motion Sickness HX of N/V After Surgery Non-Smoker Duration of Surgery greater than 60 minutes Number of Risk Factors PONV Score Height & Weight Height & Weight: Anesthesia: Height & Weight Height 5 ft 9 in 01/17/25 14:51 Weight: 111.3 kg 01/18/25 08:57 Body Mass Index (BMI) 36.2 01/18/25 03:51 Respiratory Assessment Respiratory Assessment - kier boiler: Respiratory Tract Infection Hx - kier boiler Hx Respiratory Tract Infection No 01/18/25 09:01 STOP Sleep Apnea STOP Sleep Apnea - kier boiler: STOP Sleep Apnea - kier boiler Hx Hypertension No 01/10/25 10:46 Hx Sleep Apnea Yes 01/09/25 15:31 CPAP Yes 01/09/25 15:31 BIPAP No 01/09/25 15:31 Do you snore loudly (louder than talking or can be heard Do you often feel tired/ fatigued/ sleepy during daytime? Has anyone observed you stop breathing during sleep? STOP Results Positive 01/09/25 15:31 QUESTION #5 FULL TEXT : Do you snore loudly (louder than talking or can be heard through closed doors)? 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 Specify any problems Hx of Preganancy in last 3 N/A 01/09/25 15:31 Months Nurse Filling Out Transfusion RVIZZO 01/09/25 15:31 & Questions: Date: 01/09/25 01/09/25 15:31 Time: 15:37 01/09/25 15:31 Patient unable to answer at this time (ie. confused, unrespo /Reproduction History /Reproductive History - kier boiler: /Reproductive Hx- kier boiler Hx Now No 01/18/25 09:01 Gestational Age (in weeks): EDC: Hx Hx Para Hx Section SAB No 01/18/25 09:01 Active Medications Active Medications: Current Medications Generic Name Dose Route Start Last Admin Trade Name Freq PRN Reason Stop Dose Admin Acetaminophen 1,000 mg 01/09/25 15:46 01/18/25 08:56 Acetaminophen 500 Mg Tablet PO 1,000 mg Q8 PRN Administration fever or pain Albuterol Sulfate 2.5 mg 01/09/25 15:46 Albuterol 2.5 Mg/3 Ml Vial.Neb. INHALATION Q2H PRN PRN SOB &/OR WHEEZING Ascorbic Acid 500 mg 01/09/25 22:00 01/18/25 11:32 Ascorbic Acid 500 Mg Tablet PO Not Given BID KRYSTIN Atorvastatin Calcium 40 mg 01/10/25 10:00 01/17/25 09:19 Atorvastatin Calcium 40 Mg Tablet PO 40 mg DAILY KRYSTIN Administration Calcium/Vitamin D 1 tablet 01/10/25 10:00 01/18/25 11:32 Calcium Carb/Vitamin D 1 Tablet Tablet PO Not Given DAILY KRYSTIN Cyclobenzaprine HCl 10 mg 01/09/25 22:00 01/17/25 21:05 Cyclobenzaprine Hcl 10 Mg Tablet PO 10 mg QHS [facility] Administration Ferrous Sulfate 325 mg 01/10/25 12:00 01/18/25 11:33 Ferrous Sulfate 325 Mg Tablet PO Not Given Q48@1200 KRYSTIN Folic Acid 1 mg 01/10/25 08:00 01/18/25 11:31 Folic Acid 1 Mg Tablet PO Not Given BREAKFAST KRYSTIN Sodium Chloride 250 mls @ 15 mls/hr 01/09/25 15:34 IV .[id number] PRN Saline Flush Sodium Chloride 250 mls @ 15 mls/hr 01/09/25 15:34 IV .[id number] PRN Additional IVPB Infusion Sodium Chloride 1,000 mls @ 15 mls/hr 01/18/25 12:45 IV .Q48H [facility] Insulin Glargine 20 unit 01/09/25 22:00 01/17/25 21:05 Insulin Glargine-Yfgn 100 Unit/Ml Pen SC 20 unit QHS [facility] Administration Insulin Glargine 20 unit 01/10/25 10:00 01/18/25 11:31 Insulin Glargine-Yfgn 100 Unit/Ml Pen SC Not Given DAILY [facility] Insulin Human Lispro 0 unit 01/09/25 16:00 01/18/25 11:33 Insulin Lispro 100 Unit/Ml Insuln.Pen SC [facility] Protocol Lactulose 10 gm 01/09/25 15:46 01/12/25 14:34 Lactulose 20 Gm/30 Ml Udc PO 10 gm TID PRN Administration constipation Magnesium Chloride 128 mg 01/10/25 10:00 01/18/25 11:31 Magnesium Chloride 64 Mg Delay Rel.Tablet PO Not Given DAILY [facility] Midodrine 10 mg 01/09/25 17:00 01/18/25 12:07 Midodrine Hcl 5 Mg Tablet PO 10 mg TIDCM [facility] Administration Morphine Sulfate 1 mg 01/11/25 13:23 01/17/25 19:56 Morphine 2 Mg/Ml Syringe IV 1 mg Q4H PRN PRN Administration Pain Score 6-10 Ondansetron HCl 4 mg 01/09/25 15:46 01/12/25 13:39 Ondansetron 4 Mg/2 Ml Vial IV 4 mg Q8H PRN PRN Administration NAUSEA/VOMITING Pantoprazole Sodium 20 mg 01/10/25 10:00 01/18/25 11:32 Pantoprazole Sodium 20 Mg Tablet PO Not Given DAILY KRYSTIN Potassium Phos/Sodium Phos 1 packet 01/09/25 22:00 01/18/25 11:32 Na Biphos/Potassium Phosphate Packet PO Not Given BID KRYSTIN Rifaximin 550 mg 01/09/25 22:00 01/17/25 21:06 Rifaximin 550 Mg Tablet PO 550 mg BID KRYSTIN Administration Sodium Bicarbonate 650 mg 01/09/25 22:00 01/18/25 11:32 Sodium Bicarbonate 650 Mg Tablet PO Not Given BID KRYSTIN Sodium Chloride 10 - 40 ml 01/09/25 15:34 01/18/25 08:33 0.9% Saline Lock 10 Ml Syringe IV 20 ml UD PRN Administration SALINE FLUSH Thiamine HCl 100 mg 01/10/25 10:00 01/18/25 11:32 Thiamine Hydrochloride 100 Mg Tablet PO Not Given DAILY KRYSTIN PFSH Medical History (Updated 01/17/25 @ 16:[address] Buster Carmichael MD) Umbilical hernia Chronic hyponatremia Weakness Diarrhea Sepsis Acidosis, lactic Acute hypotension [...] diarrh ea #60 tabs 09/02/24 11/28/24 Rx acetaminophen 500 mg tablet 1,000 mg PO [...] 11/21/24 11/28/24 History spironolactone 50 mg tablet 100 mg PO DAILY diuretic 0 11/21/24 11/28/24 History thiamine HCl (vitamin B1) 100 [...] solution (Constulose) L.acidophil,salivari-Bifido 1 cap PO TID pobiotic #120 caps 12/02/24 Unknown Rx bifidum-Strep thermoph 175 mg capsule potassium, sodium phosphates 280 1 packet PO BID elect rolytes #100 12/02/24 Unknown Rx mg-160 mg-250 mg oral powder packet ea cyclobenzaprine 10 mg tablet 10 mg PO QHS muscle relax er 01/02/25 Unknown History ferrous sulfate 325 mg (65 mg 325 mg PO QODAY suppleme nt 01/02/25 Unknown History iron) tablet (FeroSul) nadolol 20 mg tablet 20 mg PO DAILY bp 01/02/25 U nknown History insulin glargine-yfgn 100 unit/mL 20 unit (0.2 mL) sub cut DAILY #0 mL 01/05/25 Unknown Rx (3 mL) subcutaneous pen insulin glargine-yfgn 100 unit/mL 20 unit (0.2 mL) sub cut QHS #0 mL 01/05/25 Unknown Rx (3 mL) subcutaneous pen insulin lispro 100 unit/mL 10 unit (0.1 mL) subcut TID AC #0 mL 01/05/25 Unknown Rx subcutaneous pen (Humalog KwikPen (U-100) Insulin) insulin lispro 100 unit/mL See Protocol subcut ACHS #0 mL 01/05/25 Unknown Rx subcutaneous pen (Humalog KwikPen (U-100) Insulin) Allergy/AdvReac Type Severity Reaction Status Date / [...] never substance use type: does not use Review of Systems (Anesthesia) ROS Narrative System reviewed and no additional complaints, except as documented. Physical Exam Const alert and oriented x3 Nutritional Appearance: obese Resp normal respiratory effort, normal air movement and clear to auscultation bilaterally Cardio regular rate, regular rhythm, no murmurs and diaphoretic 01/18/25 1249 <Electronically signed by Mohit Santos MD> Date _ Mohit Santos MD Cosigner Signature: Date CC: ~ Signed [facility] Work Phone: 1([phone] 698-113906-16-2025 Consult note Author Buster Carmichael [facility] Note Date/Time January 17, 2025 4:57 pm [facility] Medical Records Department [address] [place] [address] Consultation 01/17/25 1522 MR#: [id number] Acct: [id number] Name: FRANKLIN ARCHULETA Rep #:[id number] : 1965 59 From: Buster brewster MD PCP: Josy Elias, DIRECTOR INSTRUMENTATION-C Status:ADM I N Location: [place] [address] Assessment & Plan Assessment/Plan (1) Spinal stenosis, lumbar region with neurogenic claudication: (2) Compression fracture of thoracic spine, non-traumatic: PLAN: Plan Thoracic MRI: IMPRESSION: Abnormal marrow signal at T12 and L1. No acute compression deformity identified. Can not exclude metastatic involvement of these 2 vertebral bodies. Degenerative changes in the remainder of the lumbar spine. There is mild spinal stenosis at the level of T10-T11 and T11-T12. Lumbar MRI : IMPRESSION: 1. There are Schmorl's nodes at multiple vertebral endplates of the lower thoracic and lumbar spine. 2. There is associated anterior wedging of T11 and T12. Review of the thoracic spine MR images, of the, demonstrate Schmorl's nodes at multiple vertebral endplates throughout the thoracic spine, with associated anterior wedging of multiple thoracic vertebral bodies, consistent with Scheuermann's kyphosis. 3. There is degenerative disc disease, L1-2, L4-5 and L5-S1, with central canalstenosis at L1-2. 4. There is multilevel facet arthropathy of the lumbar spine with lateral recess stenosis and foraminal narrowing at multiple levels, as described. 5: L1-L2 central canal stenosis (8mm) A/P CT/MRI showing findings that may be related to metastatic disease. Patient is precerted for SNF. Per MRI read there is no clear acute compression deformity, but findings that may be suggestive of possible malignancy associated lesions. Further evaluation was conducted to work up possible malignancy including. CT ofthe abdomen pelvis showed no evidence of any malignancy. I did get a CT of the chest today also which showed no evidence of malignancy. His total protein level is not elevated and total albumin level is also normal. He does have a history of smoking but as stated the CT chest showed no evidence of any lung nodules or malignancy. Currently no evidence of malignancy. PLT 109. Liver enzymes elevated mildly. Plan is for PCP to follow up per hospitalist team to continue workup for malignancy. Plan for L1-L2 LESI to help with stenosis symptomology. Discussed risks/benefits of injection including, infection, bleeding, headache, neurologicdamage including paralysis etc. Patient wishes to proceed. Follow up as outpatient in pain management clinic. Otherwise, continue multimodal pain regimen. Not on AC HPI Consult Data Date of Consult: 01/17/25 HPI Narrative Reason for Consultation: Severe back pain HPI Narrative: FRANKLIN ARCHULETA, is a 59 M who is in the hospital for UTI associated sepsis. Alsofound of have C diff. Stay complicated by ISABEL and also found to have cirrhosis with portal htn. A1C 7.2. We are consulted to evaluated ongoing severe back pain. MRI obtained along with CT scans to rule out malignancy. Has been workingwith PT and OT. He has precert for SNF placement. Plan is for further workup as PCP for malignancy. He states he had back has been present for years, but worsened over the last few months. He has been using a walker the past few months for balance concerns as well. He also has had a few falls recently. The pain is in the mid and low back without radiation down the legs. The pain is improved with sitting. He is not able to ambulate far without walker he states,but this has been the case for a while. Pain can be 8- 10/10 in severity when moving. [facility] Medical History (Updated 01/17/25 @ 16:[address] Buster Carmichael MD) Umbilical hernia Chronic hyponatremia Weakness Diarrhea Sepsis Acidosis, lactic Acute hypotension [...] diarrh ea #60 tabs 09/02/24 11/28/24 Rx acetaminophen 500 mg tablet 1,000 mg PO [...] mg tablet 40 mg PO DAILY diuretic /11/28/24 History magnesium oxide 400 mg (241.3 mg [...] 11/21/24 11/28/24 History spironolactone 50 mg tablet 100 mg PO DAILY diuretic 0 11/21/24 11/28/24 History thiamine HCl (vitamin B1) 100 [...] solution (Constulose) L.acidophil,salivari-Bifido 1 cap PO TID pobiotic #120 caps 12/02/24 Unknown Rx bifidum-Strep thermoph 175 mg capsule potassium, sodium phosphates 280 1 packet PO BID elect rolytes #100 12/02/24 Unknown Rx mg-160 mg-250 mg oral powder packet ea cyclobenzaprine 10 mg tablet 10 mg PO QHS muscle relax er 01/02/25 Unknown History ferrous sulfate 325 mg (65 mg 325 mg PO QODAY suppleme nt 01/02/25 Unknown History iron) tablet (FeroSul) nadolol 20 mg tablet 20 mg PO DAILY bp 01/02/25 U nknown History insulin glargine-yfgn 100 unit/mL 20 unit (0.2 mL) sub cut DAILY #0 mL 01/05/25 Unknown Rx (3 mL) subcutaneous pen insulin glargine-yfgn 100 unit/mL 20 unit (0.2 mL) sub cut QHS #0 mL 01/05/25 Unknown Rx (3 mL) subcutaneous pen insulin lispro 100 unit/mL 10 unit (0.1 mL) subcut TID AC #0 mL 01/05/25 Unknown Rx subcutaneous pen (Humalog KwikPen (U-100) Insulin) insulin lispro 100 unit/mL See Protocol subcut ACHS #0 mL 01/05/25 Unknown Rx subcutaneous pen (Humalog KwikPen (U-100) Insulin) Allergy/AdvReac Type Severity Reaction Status Date / [...] use type: does not use Physical Exam Narrative Lumbar paraspinal tenderness + bilaterally Some pain to percussion over the lumbar and lower thoracic spine SLR - bilaterally No Si tenderness. Sensation intact in lower extremities DTR 2/4 patellar 4/5 left hip flexion. Otherwise 5/5 strength in lower extremities Const alert and no apparent distress Lab / Micro Data 01/17/25 04:09 01/16/25 06:00 Labs: Laboratory Results - last 24 hr 01/16/25 15:54: POC Glucose 202 H 01/16/25 21:03: POC Glucose 227 H 01/17/25 04:09: WBC 8.4, RBC 2.50 L, Hgb 7.5 L, Hct 22.2 L, MCV 88.8, MCH 30.0, MCHC 33.8, RDW Std Deviation 58.8 H, RDW Coeff of Francis 18.8 H, Plt Count 109 L, MPV 10.7, Immature Gran % (Auto) 1.100 H, Neut % (Auto) 67.2, Lymph % (Auto) 12.9 L, [place] % (Auto) 11.5 H, Eos % (Auto) 6.8 H, Baso % (Auto) 0.5, Absolute Neuts (auto) 5.7, Absolute Lymphs (auto) 1.09, Nucleated RBC % 0 01/17/25 06:28: POC Glucose 173 H 01/17/25 11:26: POC Glucose 141 H 01/17/25 1657 <Electronically signed by Buster Carmichael MD> Cosigner Signature (if applicable): CC: YG Elias~ Signed [facility] Work Phone: 1(548) 415-388306-16-2025 Progress note Author Anurag Irene [facility] Note Date/Time January 17, 2025 2:32 pm [facility] Medical Records Department [address] [place] [address] Progress Note - Hospitalist 01/17/25 1420 MR#: [id number] Acct: [id number] Name: FRANKLIN ARCHULETA Rep #:[id number] : 1965 59 From: Anurag Lucero PCP: YG Pena Status:ADM I N Location: [place] [address] Reason for Visit Reason for Visit: Diagnoses Sepsis, unspecified organism (01/09/25) Elevated white blood cell count, unspecified (01/09/25) Acidosis, unspecified (01/09/25) Umbilical hernia without obstruction or gangrene (01/09/25) Acute kidney failure, unspecified (01/09/25) Unspecified abnormal findings in urine (01/09/25) Objective Data Objective Data Vital Signs: Vital Signs Temp Pulse Resp BP Pulse Ox O2 Del Method 98.5 F 99 16 114/58 L 94 Room Air 01/17/25 14:13 01/17/25 14:13 01/17/25 14:13 01/17/25 14:13 01/17/25 14:13 01/17/25 14:13 Oxygen Delivery Method Room Air Weight: 224 lb 13.944 oz Body Mass Index (BMI) 33.2 Intake & Output: Intake and Output for Last 24 Hours 01/15/25 01/16/25 01/17/25 23:59 23:59 23:59 Intake Total 4540 / 4660 3580 / 3820 1478.33 / 1478.33 Output Total 625 / 1050 725 / 975 400 / 400 Balance 3915 / 3610 2855 / 2845 1078.33 / 1078.33 Lab / Micro Data 01/17/25 04:09 01/16/25 06:00 Labs: Laboratory Results - last 24 hr 01/16/25 15:54: POC Glucose 202 H 01/16/25 21:03: POC Glucose 227 H 01/17/25 04:09: WBC 8.4, RBC 2.50 L, Hgb 7.5 L, Hct 22.2 L, MCV 88.8, MCH 30.0, MCHC 33.8, RDW Std Deviation 58.8 H, RDW Coeff of Francis 18.8 H, Plt Count 109 L, MPV 10.7, Immature Gran % (Auto) 1.100 H, Neut % (Auto) 67.2, Lymph % (Auto) 12.9 L, [place] % (Auto) 11.5 H, Eos % (Auto) 6.8 H, Baso % (Auto) 0.5, Absolute Neuts (auto) 5.7, Absolute Lymphs (auto) 1.09, Nucleated RBC % 0 01/17/25 06:28: POC Glucose 173 H 01/17/25 11:26: POC Glucose 141 H Micro: Microbiology 01/09/25 13:35 Blood Culture (Wb) - Right Hand Blood Culture - Final No growth in 5 days. 01/09/25 13:30 Blood Culture (Wb) - Finger Blood Culture - Final No growth in 5 days. 01/09/25 13:28 Urine Catheter - Catheter Urine Culture - Final Yeast, not Mary albicans Physical Exam Narrative Seen and examined Patient admitted for complaint of sepsis due to UTI but now UTI resolved and patient complained of back pain and imaging showed compression fracture. Complain of pain 8/10 on moving/turning around on the bed Physical exam General: Alert, Oriented x3, Cooperative HEENT: Atraumatic, PERRLA, EOMI, Normocephalic. Oral: No Gingival or Mucosal Lesions/ Ulcerations Neck: Supple, No JVD, Negative Carotid Bruits Chest wall/Lungs: Air entry diminished in bilateral lung bases. No crepitation/rhonchi Cardiovascular: Regular rate and rhythm, Normal S1,S2, No M/G/R Abdomen: Bowel Sounds Present, Soft, Non Tender, mildly distended abdomen : No dysuria. No renal angle tenderness. No suprapubic tenderness. Extremities: Bilateral 2-3+ pitting LE edema, Capillary Refill Less than 3 Seconds Skin: Mild bruise over abdomen Musculoskeletal: No Tenderness to Palpation of Joints or Extremities Spine: Tenderness present over lumbar spine. Neurological: Cranial nerves II-XII grossly intact, DTR 2+/4. No acute focal neurological deficit. Psych/Mental Status: Normal Affect, Appropriate. Assessment & Plan Assessment/Plan (1) Sepsis: (2) Abnormal urinalysis: PLAN: Plan #Sepsis due to UTI * Hypotension has resolved. Blood pressure stable. * He does have a history of known left-sided staghorn calculi and stenting and follows with Dr. Rascon * Continue broad-spectrum antibiotics with vancomycin and meropenem * Blood culture showed no growth after 5 days. Urine cultures growing yeast not Mary albicansundefined 01/17: Sepsis resolved. Urine culture shows is not Mary albicans. That mightbe commensal/colonization. Blood culture negative for 5 days. Patient is on meropenem since admission 01/09 had total 8 days of antibiotics therefore discontinued and added vancomycin in the beginning #Lactic acidosis: Likely due to sepsis. Resolved with hydration. #ISABEL: Resolved. #Hypokalemia: will replace and trend. #Umbilical hernia * Was evaluated by general surgery and the hernia was reduced. Is no longer tender. * #History of compression fractures of T8-T12 * PT OT on board. Fall precautions. * patient still complaining of severe back pain. * MRI of the lumbar spine showed Schmorl's nodules at multiple vertebral endplates of the lower thoracic and lumbar spine with associated anterior wedging of T11 and 12 and review of the thoracic spine MRI images demonstrated Schmorl's nodes at multiple vertebral endplates throughout the thoracic spine with associated anterior wedging of multiple blastic vertebral bodies consistent with Shermans kyphosis and multilevel facet arthropathy of the lumbar spine with lateral recess stenosis and foraminal narrowing. * Thoracic MRI showed abnormal marrow signal at T12 and L1 with no acute compression deformity identified and cannot exclude metastatic involvement of these 2 vertebral bodies and mild spinal stenosis of the level of T10-11 and T11-T12 * Patient PSA is normal. CT of the abdomen pelvis showed no evidence of any malignancy. I did get a CT of the chest today also which showed no evidence of malignancy. His total protein level is not elevated and total albumin level is also normal * He does have a history of smoking but as stated the CT chest showed no evidence of any lung nodules or malignancy. * CT of the chest showed partially visualized severe degenerative changes of T11 and 12 with areas of erosive changes and lytic lesions as well as cirrhosis and ascites. * Pain management consulted. WIll see patient on Friday * Patient will need follow-up on outpatient basis with PCP for further workup for any malignancy. * PT OT on board. Fall precautions. 01/17: We called Dr. Bautista and he said either he or his partner will see the patient and recommend accordingly. Patient has pre-CERT for going to defined SNF. #Hypomagnesemia: Resolved with replacement. #History of nonalcoholic liver disease with cirrhosis * On rifaximin and lactulose. Aldactone and nadolol held on account of hypotension * #Acute on chronic anemia * Hemoglobin is 7.9 today; he was transfused with one unit of pRBC during this admission. Baseline is around 8-9 though he has been as low as 7.2 before. * No clear evidence of bleeding. * May be due to his history of liver disease also. * stool for ocult blood pending * #Chronic thrombocytopenia: Platelet count is about 109K. It has been about 109 K- 130K #History of venous thrombosis: * Not anticoagulated due to history of hematuria. Will monitor. #History of hypotension: On midodrine. Continue midodrine #GERD: On PPI #Type 2 diabetes mellitus: On Lantus. Insulin sliding scale. Accu-Cheks ACHS. #Hyperlipidemia: On statin DVT prophylaxis: SCDs Charges/Coding Visit Charges Inpatient E&M: 30023 Subs Hosp L2 01/17/25 1432 <Electronically signed by Anurag Irene MD> Cosigner Signature (if applicable): CC: ~ Signed [facility] Work Phone: 1(412) 734-882206-16-2025 [facility]06-15-2025 Progress note Author Cielo Tovar [facility] Note Date/Time January 16, 2025 3:37 pm [facility] Medical Records Department [address] [place] [address] Progress Note 01/16/25 1236 MR#: [id number] Acct: [id number] Name: FRANKLIN ARCHULETA Rep #:[id number] : 1965 59 From: Cielo Tovar MD PCP: YG Pena Status:ADM I N Location: [place] [address] Subjective Subjective Patient seen and examined. He still complains of back pain that he states is a bit better today. He had an otherwise uneventful night. Review of systems otherwise negative. He is awaiting pain management evaluation tomorrow. Reviewof systems otherwise negative. Objective Data Objective Data Vital Signs: Vital Signs Temp Pulse Resp BP Pulse Ox O2 Del Method 99.3 F H 104 H 16 122/70 H 94 Room Air 01/16/25 08:59 01/16/25 08:59 01/16/25 08:59 01/16/25 08:59 01/16/25 08:59 01/16/25 10:00 Oxygen Delivery Method Room Air Weight: 225 lb 4.999 oz Body Mass Index (BMI) 33.3 Intake & Output: Intake and Output for Last 24 Hours 01/14/25 01/15/25 01/16/25 23:59 23:59 23:59 Intake Total 3281.67 / 3281.67 4540 / 4660 1785 / 1785 Output Total 425 / 425 625 / 1050 725 / 725 Balance 2856.67 / 2856.67 3915 / 3610 1060 / 1060 Lab / Micro Data 01/16/25 06:00 01/15/25 06:10 Labs: Laboratory Results - last 24 hr 01/13/25 09:38: Crossmatch See Detail 01/15/25 16:28: POC Glucose 240 H 01/15/25 20:55: POC Glucose 237 H 01/16/25 06:00: WBC 7.9, RBC 2.58 L, Hgb 7.8 L, Hct 22.8 L, MCV 88.4, MCH 30.2, MCHC 34.2, RDW Std Deviation 57.9 H, RDW Coeff of Francis 18.5 H, Plt Count 111 L, MPV 10.8, Immature Gran % (Auto) 0.900, Neut % (Auto) 64.9, Lymph % (Auto) 14.6 L, [place] % (Auto) 12.7 H, Eos % (Auto) 6.5 H, Baso % (Auto) 0.4, Absolute Neuts (auto) 5.2, Absolute Lymphs (auto) 1.16, Nucleated RBC % 0, Random Vancomycin 7.7 01/16/25 06:15: POC Glucose 173 H 01/16/25 11:40: POC Glucose 177 H Micro: Microbiology 01/09/25 13:35 Blood Culture (Wb) - Right Hand Blood Culture - Final No growth in 5 days. 01/09/25 13:30 Blood Culture (Wb) - Finger Blood Culture - Final No growth in 5 days. 01/09/25 13:28 Urine Catheter - Catheter Urine Culture - Final Yeast, not Mary albicans Physical Exam Const alert, oriented x3 and no apparent distress General Appearance: cooperative HEENT normocephalic, head/scalp atraumatic, hearing grossly normal bilaterally, moist oral mucous membranes and oropharynx normal Eyes EOMs intact bilaterally and conjunctivae normal Eyes Narrative: Conjunctival pallor present bilaterally, no scleral icterus Neck supple and no JVD Neck Narrative: Trachea midline Lymph Lymphatic: no lymphedema noted Resp Resp Narrative: Mildly diminished breath sounds bibasilarly. No wheezes or crackles. On room air. Cardio regular rate, regular rhythm, S1 normal heart sound, S2 normal heart sound and no murmurs GI normal to inspection, nondistended, normoactive bowel sounds and soft to palpation GI Narrative: umbilical hernia only minimally tender, reduced by general surgery Palpation: hernia Extremity normal capillary refill, no clubbing, cyanosis or edema and no calf tenderness General Extremity: no tenderness to palpation of joints or extremities Skin Skin Narrative: mild jaundice General Skin Exam: no breakdown Neuro oriented x3, CN's II-XII intact bilaterally and moves all extremities Speech: speech normal Motor Exam: general weakness Psych thought process normal, cooperative and affect normal Mood & Affect: flat affect Assessment & Plan Assessment/Plan (1) Sepsis: (2) Abnormal urinalysis: PLAN: Plan #Sepsis due to UTI * Hypotension has resolved. Blood pressure stable. * He does have a history of known left-sided staghorn calculi and stenting and follows with Dr. Rascon * Continue broad-spectrum antibiotics with vancomycin and meropenem * Blood culture showed no growth after 5 days. Urine cultures growing yeast not Mary albicansundefined * completed a 5 day course of antibiotics. * #Lactic acidosis: Likely due to sepsis. Resolved with hydration. #ISABEL: Resolved. #Hypokalemia: will replace and trend. #Umbilical hernia * Was evaluated by general surgery and the hernia was reduced. Is no longer tender. * #History of compression fractures of T8-T12 * PT OT on board. Fall precautions. * patient still complaining of severe back pain. * MRI of the lumbar spine showed Schmorl's nodules at multiple vertebral endplates of the lower thoracic and lumbar spine with associated anterior wedging of T11 and 12 and review of the thoracic spine MRI images demonstrated Schmorl's nodes at multiple vertebral endplates throughout the thoracic spine with associated anterior wedging of multiple blastic vertebral bodies consistent with Shermans kyphosis and multilevel facet arthropathy of the lumbar spine with lateral recess stenosis and foraminal narrowing. * Thoracic MRI showed abnormal marrow signal at T12 and L1 with no acute compression deformity identified and cannot exclude metastatic involvement of these 2 vertebral bodies and mild spinal stenosis of the level of T10-11 and T11-T12 * Patient PSA is normal. CT of the abdomen pelvis showed no evidence of any malignancy. I did get a CT of the chest today also which showed no evidence of malignancy. His total protein level is not elevated and total albumin level is also normal * I therefore do not see any evidence of malignancy. He does have a history of smoking but as stated the CT chest showed no evidence of any lung nodules or malignancy. * CT of the chest showed partially visualized severe degenerative changes of T11 and 12 with areas of erosive changes and lytic lesions as well as cirrhosis and ascites. * Pain management consulted. WIll see patient on Friday * Patient will need follow-up on outpatient basis with PCP for further workup for any malignancy. * PT OT on board. Fall precautions. #Hypomagnesemia: Resolved with replacement. #History of nonalcoholic liver disease with cirrhosis * On rifaximin and lactulose. Aldactone and nadolol held on account of hypotension * #Acute on chronic anemia * Hemoglobin is 7.9 today; he was transfused with one unit of pRBC during this admission. Baseline is around 8-9 though he has been as low as 7.2 before. * No clear evidence of bleeding. * May be due to his history of liver disease also. * stool for ocult blood pending * #Chronic thrombocytopenia: Platelets are 111 today. As stated this is chronic. Likely due to chronic liver disease. Will monitor. #History of venous thrombosis: * Not anticoagulated due to history of hematuria. Will monitor. #History of hypotension: On midodrine. Continue midodrine #GERD: On PPI #Type 2 diabetes mellitus: On Lantus. Insulin sliding scale. Accu-Cheks ACHS. #Hyperlipidemia: On statin DVT prophylaxis: SCDs Disposition: * DC to his facility when medically stable. Patient prefers to wait to see pain management on Friday before discharge as he does not think he will be able to deal with the severe back pain at home. Charges/Coding Visit Charges Inpatient E&M: 27528 Subs Hosp L2 01/16/25 1537 <Electronically signed by Cielo Tovar MD> Cielo Tovar MD Cosigner Signature (if applicable): CC: ~ Signed [facility] Work Phone: 1(374) 807-708506-14-2025 Consult note Author Buster Hahn [facility] Note Date/Time January 15, 2025 6:[address] [facility] Medical Records Department [address] [place] [address] Pharmacokinetic/Renal -Consult 01/15/25 1846 MR#: [id number] Acct: [id number] Name: FRANKLIN ARCHULETA Rep #:[id number] : 1965 59 From: Buster Lopes [facility] PCP: YG Pena Status:ADM I N Y Location: [place] [address] Consult Antibiotic Management Pharmacy has been consulted to manage selected antibiotic: Vancomycin Type of Intervention Type of Consult: Follow-up Suspected Infection Suspected Infection: Sepsis and Other (uti) Labs Labs: Sodium 130 mmol/L (133-145) L 01/15/25 06:10 Potassium 3.2 mmol/L (3.3-5.1) L 01/15/25 06:10 Chloride 94 mmol/L (98-108) L 01/15/25 06:10 Carbon Dioxide 26.7 mmol/L (21.0-32.0) 01/15/25 06:10 Anion Gap 9 (5-15) 01/15/25 06:10 BUN 5 mg/dL (4-19) 01/15/25 06:10 Creatinine 0.82 mg/dL (0.70-1.20) 01/15/25 06:10 Est GFR (MDRD) Non-Af 102 (>60) 01/15/25 06:10 BUN/Creatinine Ratio 6.0 RATIO (10-20) L 01/15/25 06:10 Glucose 178 mg/dL (70-99) H 01/15/25 06:10 Vancomycin Trough 21.4 ug/mL (5.0-15.0) H 01/14/25 18:15 Random Vancomycin 20.7 ug/mL (0.0-15.0) H 01/15/25 06:10 Microbiology Microbiology: Microbiology 01/09/25 13:35 Blood Culture (Wb) - Right Hand Blood Culture - Final No growth in 5 days. 01/09/25 13:30 Blood Culture (Wb) - Finger Blood Culture - Final No growth in 5 days. 01/09/25 13:28 Urine Catheter - Catheter Urine Culture - Final Yeast, not Mary albicans Goal Trough Goal Trough: 15-20 mcg/mL Pharmacy Plan for Drug Dosing Pharmacy Plan for Drug Dosing: VANCOMYCIN LEVEL RECEIVED Current Vancomycin Dose: current dose on hold due to elevated trough Number of Doses Received: Vancomycin Level: random level resulted at 20.7 (only a 0.7 drop in last 12 hours) Hours Since Last Dose: 24 hours since last 1000mg dose Renal Function: 0.86 Renal Function Trend: stable Lab/Micro: Vancomycin Plan/Comments: level has dropped 0.7 in last 12 hours. recommend holding for 24 hours and checking another random level on 01/16/25 at 0600 Pending Level: 01/16/25 at 0600 Pharmacy Service will continue to monitor and adjust dosing as required. Follow-Up Labs Follow-Up Labs: Trough: Vancomycin (random level 01/16/25 at 0600) 01/15/25 0364 <Electronically signed by Buster C Do ering RPh> Date _ Buster Pastora [place] RPh Cosigner Signature (if applicable): Date CC: ~ Signed [facility] Work Phone: 1(653) 748-425906-14-2025 Progress note Author Cielo Tovar [facility] Note Date/Time January 15, 2025 6:29 pm [facility] Medical Records Department [address] [place] [address] Progress Note 01/15/25 1321 MR#: [id number] Acct: [id number] Name: FRANKLIN ARCHULETA Rep #:[id number] : 1965 59 From: Cielo Tovar MD PCP: YG Pena Status:ADM I N Location: [place] [address] Subjective Subjective Patient seen and examined. He still complain of the back pain. He had no othercomplaints. Review of symptoms otherwise negative and he has remained hemodynamically stable. Objective Data Objective Data Vital Signs: Vital Signs Temp Pulse Resp BP Pulse Ox O2 Del Method 97.4 F L 98 14 123/77 H 98 Room Air 01/15/25 10:08 01/15/25 10:08 01/15/25 10:08 01/15/25 10:08 01/15/25 10:08 01/15/25 10:08 Oxygen Delivery Method Room Air Weight: 224 lb 13.944 oz Body Mass Index (BMI) 33.2 Intake & Output: Intake and Output for Last 24 Hours 01/13/25 01/14/25 01/15/25 23:59 23:59 23:59 Intake Total 2798.33 / 2798.33 3281.67 / 3281.67 2870 / 2870 Output Total 675 / 675 425 / 425 625 / 625 Balance 2123.33 / 2123.33 2856.67 / 2856.67 2245 / 2245 Lab / Micro Data 01/15/25 06:10 01/15/25 06:10 Labs: Laboratory Results - last 24 hr 01/14/25 16:20: POC Glucose 194 H 01/14/25 18:15: Vancomycin Trough 21.4 H 01/14/25 21:26: POC Glucose 173 H 01/15/25 05:12: POC Glucose 167 H 01/15/25 06:10: WBC 8.0, RBC 2.65 L, Hgb 7.9 L, Hct 23.2 L, MCV 87.5, MCH 29.8, MCHC 34.1, RDW Std Deviation 58.1 H, RDW Coeff of Francis 18.6 H, Plt Count 118 L, MPV 11.0, Immature Gran % (Auto) 1.000 H, Neut % (Auto) 65.6, Lymph % (Auto) 13.2 L, [place] % (Auto) 13.6 H, Eos % (Auto) 6.1 H, Baso % (Auto) 0.5, Absolute Neuts (auto) 5.3, Absolute Lymphs (auto) 1.06, Nucleated RBC % 0, Sodium 130 L, Potassium 3.2 L, Chloride 94 L, Carbon Dioxide 26.7, Anion Gap 9, BUN 5, Creatinine 0.82, Estim Creat Clear Calc 115.58, Est GFR (MDRD) Non-Af 102, BUN/Creatinine Ratio 6.0 L, Glucose 178 H, Calcium 7.8, Total Bilirubin 2.06 H, AST 64 H, ALT 56 H, Alkaline Phosphatase 275 H, Total Protein 4.9 L, Albumin 2.2 L, Globulin 2.7, Albumin/Globulin Ratio 0.8 L, Random Vancomycin 20.7 H 01/15/25 09:55: POC Glucose 221 H Micro: Microbiology 01/09/25 13:35 Blood Culture (Wb) - Right Hand Blood Culture - Final No growth in 5 days. 01/09/25 13:30 Blood Culture (Wb) - Finger Blood Culture - Final No growth in 5 days. 01/09/25 13:28 Urine Catheter - Catheter Urine Culture - Final Yeast, not Mary albicans Radiography Diagnostic Testing: Radiology Impression Lumbar Spine MRI 01/13/25 10:30 IMPRESSION: 1. There are Schmorl's nodes at multiple vertebral endplates of the lower thoracic and lumbar spine. 2. There is associated anterior wedging of T11 and T12. Review of the thoracic spine MR images, of , demonstrate Schmorl's nodes at multiple vertebral endplates throughout the thoracic spine, with associated anterior wedging of multiple thoracic vertebral bodies, consistent with Scheuermann's kyphosis. 3. There is degenerative disc disease, L1-2, L4-5 and L5-S1, with central canalstenosis at L1-2. 4. There is multilevel facet arthropathy of the lumbar spine with lateral recess stenosis and foraminal narrowing at multiple levels, as described. Reading Location: [place] [address] Physical Exam Const alert, oriented x3 and no apparent distress General Appearance: cooperative HEENT normocephalic, head/scalp atraumatic, hearing grossly normal bilaterally and moist oral mucous membranes Eyes PERRL, EOMs intact bilaterally and conjunctivae normal Eyes Narrative: Conjunctival pallor present bilaterally, no scleral icterus Neck no lymphadenopathy, supple and no JVD Neck Narrative: Trachea midline Lymph Lymphatic: no lymphedema noted Resp Resp Narrative: Mildly diminished breath sounds bibasilarly. No wheezes or crackles. Cardio regular rate, regular rhythm, S1 normal heart sound, S2 normal heart sound and no murmurs GI normal to inspection, nondistended, normoactive bowel sounds and soft to palpation GI Narrative: umbilical hernia only minimally tender, reduced by general surgery Palpation: hernia Extremity normal capillary refill, no clubbing, cyanosis or edema and no calf tenderness Extremity Narrative: P General Extremity: no tenderness to palpation of joints or extremities Skin no petechiae and no mottling Skin Narrative: mildly jaundiced, this is chronic General Skin Exam: no breakdown Neuro oriented x3 and moves all extremities Speech: speech normal Motor Exam: general weakness Psych thought process normal, cooperative and affect normal Mood & Affect: flat affect Assessment & Plan Assessment/Plan (1) Sepsis: (2) Abnormal urinalysis: PLAN: Plan #Sepsis due to UTI * Hypotension has resolved. Blood pressure stable. * He does have a history of known left-sided staghorn calculi and stenting and follows with Dr. Rascon * Continue broad-spectrum antibiotics with vancomycin and meropenem * Blood culture showed no growth after 5 days. Urine cultures growing yeast not Mary albicansundefined * will complete a 5 day course of antibiotics * #Lactic acidosis: Likely due to sepsis. Resolved with hydration. #ISABEL: Resolved. #Hypokalemia: Potassium is 3.2. Will replace and trend. #Umbilical hernia * Was evaluated by general surgery and the hernia was reduced. Is no longer tender. * #History of compression fractures of T8-T12 * PT OT on board. Fall precautions. * patient still complaining of severe back pain. * MRI of the lumbar spine showed Schmorl's nodules at multiple vertebral endplates of the lower thoracic and lumbar spine with associated anterior wedging of T11 and 12 and review of the thoracic spine MRI images demonstrated Schmorl's nodes at multiple vertebral endplates throughout the thoracic spine with associated anterior wedging of multiple blastic vertebral bodies consistent with Shermans kyphosis and multilevel facet arthropathy of the lumbar spine with lateral recess stenosis and foraminal narrowing. * Thoracic MRI showed abnormal marrow signal at T12 and L1 with no acute compression deformity identified and cannot exclude metastatic involvement of these 2 vertebral bodies and mild spinal stenosis of the level of T10-11 and T11-T12 * Patient PSA is normal. CT of the abdomen pelvis showed no evidence of any malignancy. I did get a CT of the chest today also which showed no evidence of malignancy. His total protein level is not elevated and total albumin level is also normal * I therefore do not see any evidence of malignancy. He does have a history of smoking but as stated the CT chest showed no evidence of any lung nodules or malignancy. * CT of the chest showed partially visualized severe degenerative changes of T11 and 12 with areas of erosive changes and lytic lesions as well as cirrhosis and ascites. * Pain management consulted. WIll see patient on Friday * Patient will need follow-up on outpatient basis with PCP for further workup for any malignancy. * PT OT on board. Fall precautions. #Hypomagnesemia: Resolved with replacement. #History of nonalcoholic liver disease with cirrhosis * On rifaximin and lactulose. Aldactone and nadolol held on account of hypotension * #Acute on chronic anemia * Hemoglobin is 7.9 today; he was transfused with one unit of pRBC during this admission. Baseline is around 8-9 though he has been as low as 7.2 before. * No clear evidence of bleeding. * May be due to his history of liver disease also. * stool for ocult blood pending * #Chronic thrombocytopenia: Platelets are 118 today. As stated this is chronic. Likely due to chronic liver disease. Will monitor. #History of venous thrombosis: * Not anticoagulated due to history of hematuria. Will monitor. #History of hypotension: On midodrine. Continue midodrine #GERD: On PPI #Type 2 diabetes mellitus: On Lantus. Insulin sliding scale. Accu-Cheks ACHS. #Hyperlipidemia: On statin DVT prophylaxis: SCDs Disposition: DC to his facility when medically stable. Patient prefers to wait to see pain management on Friday before discharge as he does not think he will be able to deal with the severe back pain at home. Charges/Coding Visit Charges Inpatient E&M: 08395 Subs Hosp L2 01/15/25 2393 <Electronically signed by Cielo Tovar MD> Cielo Tovar MD Cosigner Signature (if applicable): CC: ~ Signed [facility] Work Phone: 1(387) 991-537806-13-2025 Consult note Author Andreia Carvalho [facility] Note Date/Time January 14, 2025 8:[address] [facility] Medical Records Department [address] [place] [address] Pharmacokinetic/Renal -Consult 01/14/252002 MR#: [id number] Acct: [id number] Name: FRANKLIN ARCHULETA Rep #:[id number] : 1965 59 From: Andreia Carvalho PCP: YG Pena Status:ADM I N Y Location: [place] [address] Consult Antibiotic Management Pharmacy has been consulted to manage selected antibiotic: Vancomycin Type of Intervention Type of Consult: Follow-up Labs Labs: Sodium 131 mmol/L (133-145) L 01/14/25 03:53 Potassium 3.0 mmol/L (3.3-5.1) L 01/14/25 03:53 Chloride 95 mmol/L (98-108) L 01/14/25 03:53 Carbon Dioxide 25.1 mmol/L (21.0-32.0) 01/14/25 03:53 Anion Gap 11 (5-15) 01/14/25 03:53 BUN 6 mg/dL (4-19) 01/14/25 03:53 Creatinine 0.86 mg/dL (0.70-1.20) 01/14/25 03:53 Est GFR (MDRD) Non-Af 100 (>60) 01/14/25 03:53 BUN/Creatinine Ratio 6.4 RATIO (10-20) L 01/14/25 03:53 Glucose 280 mg/dL (70-99) H 01/14/25 03:53 Vancomycin Trough 21.4 ug/mL (5.0-15.0) H 01/14/25 18:15 Random Vancomycin 14.8 ug/mL (0.0-15.0) 01/11/25 17:00 Microbiology Microbiology: Microbiology 01/09/25 13:35 Blood Culture (Wb) - Right Hand Blood Culture - Final No growth in 5 days. 01/09/25 13:30 Blood Culture (Wb) - Finger Blood Culture - Final No growth in 5 days. 01/09/25 13:28 Urine Catheter - Catheter Urine Culture - Final Yeast, not Mary albicans Pharmacy Plan for Drug Dosing Pharmacy Plan for Drug Dosing: VANCOMYCIN LEVEL RECEIVED Current Vancomycin Dose: 1000MG IV Q12H Number of Doses Received: 6 (of current regimen) Vancomycin Level: 21.4 Hours Since Last Dose: 12hrs Renal Function: 0.86 Renal Function Trend: stable Lab/Micro: ngtd Vancomycin Plan/Comments: patient had a trough drawn which resulted in a value of 21.4 (goal 15-20). patient's trough is above goal. Will hold subsequent dosesof vancomycin and recheck a trough in 12 hours. Once trough is below 20, will resume scheduled dosing. Pending Level: *RANDOM* 01/15/25 @0600 Pharmacy Service will continue to monitor and adjust dosing as required. 01/14/252003 <Electronically signed by Andreia Carvalho > Date _ Andreia Carvalho Cosigner Signature (if applicable): Date CC: ~ Signed [facility] Work Phone: 1(984) 158-915406-13-2025 Progress note Author Cielo Tovar [facility] Note Date/Time January 14, 2025 5:19 pm [facility] Medical Records Department [address] [place] [address] Progress Note 01/14/25 1706 MR#: [id number] Acct: [id number] Name: FRANKLIN ARCHULETA Rep #:[id number] : 1965 59 From: Cielo Tovar MD PCP: Josy Elias DIRECTOR INSTRUMENTATION-C Status:ADM I N Location: [place] [address] Subjective Subjective Patient seen and examined. He still complaining of back pain. He was seen withhis nurse by his bedside. He is not able to do much with therapy due to the back pain. Review of symptoms otherwise negative. Objective Data Objective Data Vital Signs: Vital Signs Temp Pulse Resp BP Pulse Ox O2 Del Method 98.1 F 96 18 114/67 97 Room Air 01/14/25 14:40 01/14/25 14:40 01/14/25 14:40 01/14/25 14:40 01/14/25 14:40 01/14/25 15:41 Oxygen Delivery Method Room Air Weight: 224 lb 6.889 oz Body Mass Index (BMI) 33.1 Intake & Output: Intake and Output for Last 24 Hours 01/12/25 01/13/25 01/14/25 23:59 23:59 23:59 Intake Total 3390 / 3390 2798.33 / 2798.33 1771.67 / 1771.67 Output Total 1100 / 1100 675 / 675 225 / 225 Balance 2290 / 2290 2123.33 / 2123.33 1546.67 / 1546.67 Lab / Micro Data 01/14/25 03:53 01/14/25 03:53 Labs: Laboratory Results - last 24 hr 01/13/25 09:38: Blood Type O POSITIVE, Antibody Screen NEGATIVE, Crossmatch See Detail 01/13/25 22:15: POC Glucose 272 H 01/14/25 03:53: WBC 8.1, RBC 2.64 L, Hgb 7.8 L, Hct 23.2 L, MCV 87.9, MCH 29.5, MCHC 33.6, RDW Std Deviation 58.4 H, RDW Coeff of Francis 18.5 H, Plt Count 121 L, MPV 11.8, Immature Gran % (Auto) 1.000 H, Neut % (Auto) 65.3, Lymph % (Auto) 13.5 L, [place] % (Auto) 14.3 H, Eos % (Auto) 5.5 H, Baso % (Auto) 0.4, Absolute Neuts (auto) 5.3, Absolute Lymphs (auto) 1.09, Nucleated RBC % 0, Sodium 131 L, Potassium 3.0 L, Chloride 95 L, Carbon Dioxide 25.1, Anion Gap 11, BUN 6, Creatinine 0.86, Estim Creat Clear Calc 110.10, Est GFR (MDRD) Non-Af 100, BUN/Creatinine Ratio 6.4 L, Glucose 280 H, Calcium 7.9, Total Bilirubin 2.64 H, AST 83 H, ALT 61 H, Alkaline Phosphatase 293 H, Total Protein 4.9 L, Albumin 2.4 L, Globulin 2.5, Albumin/Globulin Ratio 0.9, Total PSA 0.65 01/14/25 06:20: POC Glucose 263 H 01/14/25 11:16: POC Glucose 261 H 01/14/25 16:20: POC Glucose 194 H Micro: Microbiology 01/09/25 13:35 Blood Culture (Wb) - Right Hand Blood Culture - Final No growth in 5 days. 01/09/25 13:30 Blood Culture (Wb) - Finger Blood Culture - Final No growth in 5 days. 01/09/25 13:28 Urine Catheter - Catheter Urine Culture - Final Yeast, not Mary albicans Radiography Diagnostic Testing: Radiology Impression Lumbar Spine MRI 01/13/25 10:30 IMPRESSION: 1. There are Schmorl's nodes at multiple vertebral endplates of the lower thoracic and lumbar spine. 2. There is associated anterior wedging of T11 and T12. Review of the thoracic spine MR images, of the, demonstrate Schmorl's nodes at multiple vertebral endplates throughout the thoracic spine, with associated anterior wedging of multiple thoracic vertebral bodies, consistent with Scheuermann's kyphosis. 3. There is degenerative disc disease, L1-2, L4-5 and L5-S1, with central canalstenosis at L1-2. 4. There is multilevel facet arthropathy of the lumbar spine with lateral recess stenosis and foraminal narrowing at multiple levels, as described. Reading Location: [place] [address] Thoracic Spine MRI 01/13/25 10:30 IMPRESSION: Abnormal marrow signal at T12 and L1. No acute compression deformity identified. Can not exclude metastatic involvement of these 2 vertebral bodies. Degenerative changes in the remainder of the lumbar spine. There is mild spinal stenosis at the level of T10-T11 and T11-T12. The patient could not tolerate postcontrast imaging. There is no cord compression Reading Location: [facility] Chest CT 01/14/25 08:06 IMPRESSION: 1. Partially visualized severe degenerative changes of T11-T12 with areas of erosive changes and lytic lesions. Metastasis can not be excluded. 2. Cirrhosis and ascites. 3. Mild lung emphysema. No suspicious nodules or focal consolidation. Reading Location: [facility] Physical Exam Const alert, oriented x3 and no apparent distress General Appearance: cooperative HEENT normocephalic, head/scalp atraumatic, hearing grossly normal bilaterally, moist oral mucous membranes and oropharynx normal Eyes PERRL, EOMs intact bilaterally and conjunctivae normal Eyes Narrative: Conjunctival pallor present bilaterally, no scleral icterus Neck supple and no JVD Neck Narrative: Trachea midline Lymph Lymphatic: no lymphedema noted Resp Resp Narrative: Mildly diminished breath sounds bibasilarly. No wheezes or crackles. Cardio regular rate, regular rhythm, S1 normal heart sound, S2 normal heart sound and no murmurs GI normal to inspection, nondistended, normoactive bowel sounds and soft to palpation; Negative for non-tender GI Narrative: umbilical hernia only minimally tender, reduced by general surgery Palpation: hernia Extremity normal capillary refill, no clubbing, cyanosis or edema and no calf tenderness General Extremity: no tenderness to palpation of joints or extremities Skin no jaundice, no petechiae and no mottling Skin Narrative: mildly jaundiced, this is chronic General Skin Exam: no breakdown Neuro oriented x3, CN's II-XII intact bilaterally and moves all extremities Speech: speech normal Motor Exam: general weakness Psych Mood & Affect: flat affect Assessment & Plan Assessment/Plan (1) Sepsis: (2) Abnormal urinalysis: PLAN: Plan #Sepsis due to UTI * Hypotension has resolved. Blood pressure stable. * Blood and urine cultures pending. He does have a history of known left-sided staghorn calculi and stenting and follows with Dr. Rascon * Continue broad-spectrum antibiotics with vancomycin and meropenem * Blood culture showed no growth. Urine cultures growing yeast not Mary albicansundefined * will complete a 5 day course of antibiotics * #Lactic acidosis: Likely due to sepsis. Resolved with hydration. #ISABEL: Resolved. #Hypokalemia: Potassium is 3.0. Will replace and trend. #Umbilical hernia * Was evaluated by general surgery and the hernia was reduced. Is no longer tender. * #History of compression fractures of T8-T12 * PT OT on board. Fall precautions. * patient still complaining of severe back pain. * MRI of the lumbar spine showed Schmorl's nodules at multiple vertebral endplates of the lower thoracic and lumbar spine with associated anterior wedging of T11 and 12 and review of the thoracic spine MRI images demonstrated Schmorl's nodes at multiple vertebral endplates throughout the thoracic spine with associated anterior wedging of multiple blastic vertebral bodies consistent with Shermans kyphosis and multilevel facet arthropathy of the lumbar spine with lateral recess stenosis and foraminal narrowing. * Thoracic MRI showed abnormal marrow signal at T12 and L1 with no acute compression deformity identified and cannot exclude metastatic involvement of these 2 vertebral bodies and mild spinal stenosis of the level of T10-11 and T11-T12 * Patient PSA is normal. CT of the abdomen pelvis showed no evidence of any malignancy. I did get a CT of the chest today also which showed no evidence of malignancy. His total protein level is not elevated and total albumin level is also normal * I therefore do not see any evidence of malignancy. He does have a history of smoking but as stated the CT chest showed no evidence of any lung nodules or malignancy. * CT of the chest showed partially visualized severe degenerative changes of T11 and 12 with areas of erosive changes and lytic lesions as well as cirrhosis and ascites. * Pain management consulted. * Patient will need follow-up on outpatient basis with PCP for further workup for any malignancy. * PT OT on board. Fall precautions. #Hypomagnesemia: Resolved with replacement. #History of nonalcoholic liver disease with cirrhosis * On rifaximin and lactulose. Aldactone and nadolol held on account of hypotension * #Acute on chronic anemia * Hemoglobin is 7.8 today after he was transfused with one unit of pRBC yesterday. Baseline is around 8-9 though he has been as low as 7.2 before. * No clear evidence of bleeding. * May be due to his history of liver disease also. * stool for ocult blood pending * #Chronic thrombocytopenia: Platelets are 121 today. As stated this is chronic. Likely due to chronic liver disease. Will monitor. #History of venous thrombosis: * Not anticoagulated due to history of hematuria. Will monitor. #History of hypotension: On midodrine. Continue midodrine #GERD: On PPI #Type 2 diabetes mellitus: On Lantus. Insulin sliding scale. Accu-Cheks ACHS. #Hyperlipidemia: On statin DVT prophylaxis: SCDs Disposition: DC to his facility when medically stable. Charges/Coding Visit Charges Inpatient E&M: 35789 Subs Hosp L2 01/14/25 8351 <Electronically signed by Cielo Tovar MD> Cielo Tovar MD Cosigner Signature (if applicable): CC: ~ Signed [facility] Work Phone: 1(692) 225-128506-13-2025 Radiology Diagnostic study [facility]06-12-2025 Progress note Author [facility] Note Date/Time January 13, 2025 6:28 pm [facility] Medical Records Department [address] [place] [address] Progress Note 01/13/25 1517 MR#: [id number] Acct: [id number] Name: FRANKLIN ARCHULETA Rep #:[id number] : 1965 59 From: Cielo Tovar MD PCP: YG Pena Status:ADM I N Location: [place] [address] Subjective Subjective Patient seen and examined. He was complaining of severe back pain. He says because of his back pain he has not been able to do much with physical therapy. He denies any nausea or vomiting or dark stools. Review of systems otherwise negative. Hemoglobin today 7.2. Objective Data Objective Data Vital Signs: Vital Signs Temp Pulse Resp BP Pulse Ox O2 Del Method 98.5 F 95 16 115/67 96 Room Air 01/13/25 08:08 01/13/25 10:33 01/13/25 08:08 01/13/25 08:08 01/13/25 08:08 01/13/25 08:08 Oxygen Delivery Method Room Air Weight: 215 lb 6.266 oz Body Mass Index (BMI) 31.8 Intake & Output: Intake and Output for Last 24 Hours 01/11/25 01/12/25 01/13/25 23:59 23:59 23:59 Intake Total 4280 / 4280 3390 / 3390 2140 / 2140 Output Total 1100 / 1400 1100 / 1100 675 / 675 Balance 3180 / 2880 2290 / 2290 1465 / 1465 Lab / Micro Data 01/13/25 06:08 01/13/25 06:08 Labs: Laboratory Results - last 24 hr 01/12/25 16:31: POC Glucose 316 H 01/12/25 21:37: POC Glucose 241 H 01/13/25 06:08: WBC 8.7, RBC 2.38 L, Hgb 7.2 L, Hct 21.0 L, MCV 88.2, MCH 30.3, MCHC 34.3, RDW Std Deviation 59.2 H, RDW Coeff of Francis 18.6 H, Plt Count 124 L, MPV 11.3, Immature Gran % (Auto) 0.800, Neut % (Auto) 65.6, Lymph % (Auto) 14.4 L, [place] % (Auto) 13.7 H, Eos % (Auto) 5.2 H, Baso % (Auto) 0.3, Absolute Neuts (auto) 5.7, Absolute Lymphs (auto) 1.25, Nucleated RBC % 0, Sodium 132 L, Potassium 3.1 L, Chloride 96 L, Carbon Dioxide 25.5, Anion Gap 10, BUN 7, Creatinine 0.90, Estim Creat Clear Calc 103.13, Est GFR (MDRD) Non-Af 99, BUN/Creatinine Ratio 7.3 L, Glucose 187 H, Calcium 7.7, Total Bilirubin 1.69 H, AST 107 H, ALT 72 H, Alkaline Phosphatase 306 H, Total Protein 4.9 L, Albumin 2.3L, Globulin 2.6, Albumin/Globulin Ratio 0.9, Vancomycin Trough 19.8 H 01/13/25 06:45: POC Glucose 201 H 01/13/25 09:38: Iron 110, TIBC 211 L, Iron Saturation 52.1, Unsaturated IBC 101 L, Ferritin 76, Blood Type O POSITIVE, Antibody Screen NEGATIVE, Crossmatch See Detail 01/13/25 10:52: POC Glucose 249 H Micro: Microbiology 01/09/25 13:28 Urine Catheter - Catheter Urine Culture - Final Yeast, not Mary albicans 01/09/25 13:30 Blood Culture (Wb) - Finger Blood Culture - Preliminary No growth in 48 hours. 01/09/25 13:35 Blood Culture (Wb) - Right Hand Blood Culture - Preliminary No growth in 48 hours. Physical Exam Const alert, oriented x3 and no apparent distress General Appearance: cooperative HEENT normocephalic, head/scalp atraumatic, hearing grossly normal bilaterally, moist oral mucous membranes and oropharynx normal Eyes EOMs intact bilaterally and conjunctivae normal Eyes Narrative: Conjunctival pallor present bilaterally, no scleral icterus Neck supple and no JVD Lymph Lymphatic: no lymphedema noted Resp Resp Narrative: Mildly diminished breath sounds bibasilarly. No wheezes or crackles. Auscultation: Negative for rales, rhonchi or wheezes Cardio regular rate, regular rhythm, S1 normal heart sound, S2 normal heart sound and no murmurs GI normal to inspection, nondistended, normoactive bowel sounds and soft to palpation GI Narrative: umbilical hernia only minimally tender, reduced by general surgery Palpation: hernia Extremity normal capillary refill, no clubbing, cyanosis or edema and no calf tenderness General Extremity: no tenderness to palpation of joints or extremities Skin Skin Narrative: mildly jaundiced, this is chronic General Skin Exam: no breakdown Neuro oriented x3 and moves all extremities Motor Exam: general weakness Psych thought process normal, cooperative and affect normal Mood & Affect: flat affect Assessment & Plan Assessment/Plan (1) Sepsis: (2) Abnormal urinalysis: PLAN: Plan #Sepsis due to UTI * Hypotension has resolved. Blood pressure stable. * Blood and urine cultures pending. He does have a history of known left-sided staghorn calculi and stenting and follows with Dr. Rascon * Continue broad-spectrum antibiotics with vancomycin and meropenem * Blood culture showed no growth. Urine cultures growing yeast not Mary albicansundefined * will complete a 5 day course of antibiotics * #Lactic acidosis: Likely due to sepsis. Resolved with hydration. #ISABEL: Resolved. #Hypokalemia: Potassium is 3.1. Will replace and trend. #Umbilical hernia * Was evaluated by general surgery and the hernia was reduced. Is no longer tender. * #History of compression fractures of T8-T12 * PT OT on board. Fall precautions. * patient still complaining of severe back pain. Will get MRI of the lumbar and thoracic spine to better evaluate this. #Hypomagnesemia: Resolved with replacement. 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 Aldactone and nadolol held on account of hypotension * #Acute on chronic * Hemoglobin is 7.2 today. Baseline is around 8-9 though he has been as low as 7.2 before. * No clear evidence of bleeding. * May be due to his history of liver disease also. * Will transfuse with one unit of PRBC. Check stool for occult blood * #History of venous thrombosis: Not anticoagulated due to history of hematuria. Will monitor. #History of hypotension: On midodrine. Continue midodrine #GERD: On PPI #Type 2 diabetes mellitus: On Lantus. Insulin sliding scale. Accu-Cheks ACHS. #Hyperlipidemia: On statin DVT prophylaxis: Heparin. DC heparin and switch to SCDs on account of anemia Disposition: DC to his facility when medically stable. Charges/Coding Visit Charges Inpatient E&M: 71951 Subs Hosp L2 01/13/251827 <Electronically signed by Cielo Tovar MD> Cielo Tovar MD Cosigner Signature (if applicable): CC: ~ Signed [facility] Work Phone: 1(586) 718-403306-12-2025 Consult note Author Francheska Montoya [facility] Note Date/Time January 13, 2025 9:[address] [facility] Medical Records Department [address] [place] [address] Pharmacokinetic/Renal -Consult 01/13/25 0934 MR#: [id number] Acct: [id number] Name: FRANKLIN ARCHULETA Rep #:[id number] : 1965 59 From: Francheska Mcfarlane PCP: YG Pena Status:ADM I N Y Location: [place] [address] Consult Antibiotic Management Pharmacy has been consulted to manage selected antibiotic: Vancomycin Type of Intervention Type of Consult: Follow-up Suspected Infection Suspected Infection: Sepsis Prior Doses of Antibiotics Prior Doses of Antibiotics Received/Current Regimen: 01/12/25 @ 1804 01/13/43 @ 0725 Labs Labs: Sodium 132 mmol/L (133-145) L 01/13/25 06:08 Potassium 3.1 mmol/L (3.3-5.1) L 01/13/25 06:08 Chloride 96 mmol/L (98-108) L 01/13/25 06:08 Carbon Dioxide 25.5 mmol/L (21.0-32.0) 01/13/25 06:08 Anion Gap 10 (5-15) 01/13/25 06:08 BUN 7 mg/dL (4-19) 01/13/25 06:08 Creatinine 0.90 mg/dL (0.70-1.20) 01/13/25 06:08 Est GFR (MDRD) Non-Af 99 (>60) 01/13/25 06:08 BUN/Creatinine Ratio 7.3 RATIO (10-20) L 01/13/25 06:08 Glucose 187 mg/dL (70-99) H 01/13/25 06:08 Vancomycin Trough 19.8 ug/mL (5.0-15.0) H 01/13/25 06:08 Random Vancomycin 14.8 ug/mL (0.0-15.0) 01/11/25 17:00 Microbiology Microbiology: Microbiology 01/09/25 13:28 Urine Catheter - Catheter Urine Culture - Final Yeast, not Mary albicans 01/09/25 13:30 Blood Culture (Wb) - Finger Blood Culture - Preliminary No growth in 48 hours. 01/09/25 13:35 Blood Culture (Wb) - Right Hand Blood Culture - Preliminary No growth in 48 hours. Dosing Weight Weight used for dosin kg Estimated Creatinine Clearance Estimated Creatinine Clearance: 103 Goal Trough Goal Trough: 15-20 mcg/mL Pharmacy Plan for Drug Dosing Pharmacy Plan for Drug Dosing: Vancomycin 1000mg every 12 hours Pharmacy Service will continue to monitor and adjust dosing as required. Follow-Up Labs Follow-Up Labs: Trough: Vancomycin Date/Time Labs Ordered Labs to be done on [date and time ordered]: 01/14/25 01/13/25 0936 <Electronically signed by Francheska Montoya> Date _ Francheska Montoya Cosigner Signature (if applicable): Date CC: ~ Signed [facility] Work Phone: 1(900) 807-375506-11-2025 Progress note Author Cielo [facility] Note Date/Time January 12, 2025 4:51 pm [facility] Medical Records Department [address] [place] [id number] Progress Note 01/12/25 1646 MR#: [id number] Acct: [id number] Name: FRANKLIN ARCHULETA Rep #:[id number] : 1965 59 From: Cielo Tovar MD PCP: YG Pena Status:ADM I N Location: [place] [address] Subjective Subjective Patient seen and examined. He was complaining of some back pain today. Patienthas remained redundantly stable. However he says he does not feel ready to go back to his facility today and wants to go tomorrow. Review of systems otherwise negative. Objective Data Objective Data Vital Signs: Vital Signs Temp Pulse Resp BP Pulse Ox O2 Del Method 98.2 F 88 16 118/85 H 96 Room Air 01/12/25 14:54 01/12/25 15:30 01/12/25 14:54 01/12/25 14:54 01/12/25 14:54 01/12/25 14:54 Oxygen Delivery Method Room Air Weight: 212 lb 8.41 oz Body Mass Index (BMI) 31.4 Intake & Output: Intake and Output for Last 24 Hours 01/10/25 01/11/25 01/12/25 23:59 23:59 23:59 Intake Total 2940 / 2940 4280 / 4280 2040 / 2040 Output Total 1445 / 1595 1100 / 1400 900 / 900 Balance 1495 / 1345 3180 / 2880 1140 / 1140 Lab / Micro Data 01/12/25 05:23 01/12/25 05:23 Labs: Laboratory Results - last 24 hr 01/11/25 16:43: POC Glucose 298 H 01/11/25 17:00: Random Vancomycin 14.8 01/11/25 22:26: POC Glucose 258 H 01/12/25 05:23: WBC 8.6, RBC 2.51 L, Hgb 7.4 L, Hct 21.8 L, MCV 86.9, MCH 29.5, MCHC 33.9, RDW Std Deviation 57.6 H, RDW Coeff of Francis 18.4 H, Plt Count 127 L, MPV 11.7, Immature Gran % (Auto) 1.100 H, Neut % (Auto) 68.2, Lymph % (Auto) 11.6 L, [place] % (Auto) 12.1 H, Eos % (Auto) 6.5 H, Baso % (Auto) 0.5, Absolute Neuts (auto) 5.9, Absolute Lymphs (auto) 0.99, Nucleated RBC % 0, Sodium 130 L, Potassium 3.1 L, Chloride 97 L, Carbon Dioxide 24.4, Anion Gap 9, BUN 10, Creatinine 0.93, Estim Creat Clear Calc 99.17, Est GFR (MDRD) Non-Af 95, BUN/Creatinine Ratio 10.5, Glucose 241 H, Calcium 7.6, Total Bilirubin 1.95 H, AST 148 H, ALT 82 H, Alkaline Phosphatase 332 H, Total Protein 5.0 L, Albumin 2.4L, Globulin 2.7, Albumin/Globulin Ratio 0.9 01/12/25 06:35: POC Glucose 214 H 01/12/25 11:03: POC Glucose 224 H Micro: Microbiology 01/09/25 13:28 Urine Catheter - Catheter Urine Culture - Final Yeast, not Mary albicans 01/09/25 13:30 Blood Culture (Wb) - Finger Blood Culture - Preliminary No growth in 48 hours. 01/09/25 13:35 Blood Culture (Wb) - Right Hand Blood Culture - Preliminary No growth in 48 hours. Physical Exam Const alert, oriented x3 and no apparent distress General Appearance: cooperative HEENT normocephalic, head/scalp atraumatic, hearing grossly normal bilaterally, moist oral mucous membranes and oropharynx normal Eyes PERRL, EOMs intact bilaterally and conjunctivae normal Neck no lymphadenopathy and supple Neck Narrative: Trachea midline Lymph Lymphatic: no lymphedema noted Resp Resp Narrative: Mildly diminished breath sounds bibasilarly. No wheezes or crackles. Cardio regular rate, regular rhythm, S1 normal heart sound, S2 normal heart sound and no murmurs GI normal to inspection, nondistended, normoactive bowel sounds and soft to palpation; Negative for non-tender GI Narrative: umbilical hernia not tender, reduced by general surgery Palpation: hernia Extremity normal capillary refill, no clubbing, cyanosis or edema and no calf tenderness Extremity Narrative: P General Extremity: no tenderness to palpation of joints or extremities Skin no jaundice, no petechiae and no mottling General Skin Exam: no breakdown Neuro oriented x3, CN's II-XII intact bilaterally and moves all extremities Speech: speech normal Motor Exam: general weakness Psych thought process normal Mood & Affect: flat affect Assessment & Plan Assessment/Plan (1) Sepsis: (2) Abnormal urinalysis: PLAN: Plan #Sepsis due to UTI * Hypotension has resolved. Blood pressure stable. * Blood and urine cultures pending. He does have a history of known left-sided staghorn calculi and stenting and follows with Dr. Rascon * Continue broad-spectrum antibiotics with vancomycin and meropenem * Blood culture showed no growth. Urine cultures growing yeast not Mary albicans * #Lactic acidosis: Likely due to sepsis. Resolved with hydration. #ISABEL: Resolved. [ #Umbilical hernia * Has tender umbilical hernia which is nonreducible. * Was evaluated by general surgery yesterday and the hernia was reduced. Is no longer tender. * * #History of compression fractures of T8-T12 * PT OT on board. Fall precautions. * Pain meds as needed. #Hypomagnesemia: Resolved with replacement. 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 Aldactone and nadolol held on account of hypotension * Ammonia level was 61. #History of anemia: * Hemoglobin is still 7.4 today. Baseline is around 8-9 though he has been as low as 7.2 before. * No clear evidence of bleeding. * May be due to his history of liver disease also. * Will monitor and transfuse if hemoglobin is less than 7. * #History of venous thrombosis: Not anticoagulated due to history of hematuria. Will monitor. #History of hypotension: On midodrine. Continue midodrine #GERD: On PPI #Type 2 diabetes mellitus: On Lantus. Insulin sliding scale. Accu-Cheks ACHS. #Hyperlipidemia: On statin DVT prophylaxis: Heparin. DC heparin and switch to SCDs on account of anemia Disposition: For DC tomorrow to his facility. Charges/Coding Visit Charges Inpatient E&M: 35964 Subs Hosp L2 01/12/251650 <Electronically signed by Cielo Tovar MD> Cielo Tovar MD Cosigner Signature (if applicable): CC: ~ Signed [facility] Work Phone: 1(702) 527-744206-11-2025 Consult note Author Dilcia Vanessa [facility] Note Date/Time January 11, 2025 10:[address] [facility] Medical Records Department [address] [place] [address] Pharmacokinetic/Renal -Consult 01/11/251942 MR#: [id number] Acct: [id number] Name: FRANKLIN ARCHULETA Rep #:[id number] : 1965 59 From: Dilcia Vanessa PCP: YG Pena Status:ADM I N Y Location: [place] [address] Consult Antibiotic Management Pharmacy has been consulted to manage selected antibiotic: Vancomycin Type of Intervention Type of Consult: Follow-up Suspected Infection Suspected Infection: Sepsis and Other (UTI) Labs Labs: Sodium 129 mmol/L (133-145) L 01/11/25 05:30 Potassium 3.5 mmol/L (3.3-5.1) 01/11/25 05:30 Chloride 99 mmol/L (98-108) 01/11/25 05:30 Carbon Dioxide 17.3 mmol/L (21.0-32.0) L 01/11/25 05:30 Anion Gap 12 (5-15) 01/11/25 05:30 BUN 16 mg/dL (4-19) 01/11/25 05:30 Creatinine 1.18 mg/dL (0.70-1.20) 01/11/25 05:30 Est GFR (MDRD) Non-Af 72 (>60) 01/11/25 05:30 BUN/Creatinine Ratio 13.4 RATIO (10-20) 01/11/25 05:30 Glucose 275 mg/dL (70-99) H 01/11/25 05:30 Vancomycin Trough 21.8 ug/mL (5.0-15.0) H 01/11/25 01:26 Random Vancomycin 14.8 ug/mL (0.0-15.0) 01/11/25 17:00 Microbiology Microbiology: Microbiology 01/09/25 13:28 Urine Catheter - Catheter Urine Culture - Preliminary Yeast, not Mary albicans 01/09/25 13:30 Blood Culture (Wb) - Finger Blood Culture - Preliminary No growth in 48 hours. 01/09/25 13:35 Blood Culture (Wb) - Right Hand Blood Culture - Preliminary No growth in 48 hours. Dosing Weight Weight used for dosin.63 kg Goal Trough Goal Trough: 15-20 mcg/mL Pharmacy Plan for Drug Dosing Pharmacy Plan for Drug Dosing: VANCOMYCIN LEVEL RECEIVED Current Vancomycin Dose:1000 MG Q12H Number of Doses Received: 0 Vancomycin Level: 14.8 Hours Since Last Dose: 26.5 Renal Function: SCr 1.18, CrCl 78.27 Renal Function Trend: Improved Lab/Micro: Vancomycin Plan/Comments: Level was drawn 4 hours late, and was just below therapeutic levels. Improved Renal function. Will restart dose Pharmacy Service will continue to monitor and adjust dosing as required. Pending Level: 01/13/2025 @ 0600 Follow-Up Labs Follow-Up Labs: Trough: Vancomycin Date/Time Labs Ordered Labs to be done on [date and time ordered]: 01/13/2025 @0600 01/11/25 194 <Electronically signed by Dilcia montalvo> Date _ Dilcia Vanessa 01/11/25 1951 <Electronically signed by Yaritza Holland> Cosigner Signature (if applicable): Date Yaritza Leo DO CC: ~ Signed [facility] Work Phone: 1(386) 695-202706-10-2025 Progress note Author Cielo Tovar [facility] Note Date/Time January 11, 2025 5:51 pm [facility] Medical Records Department [address] [place] [address] Progress Note 01/11/25 1510 MR#: [id number] Acct: [id number] Name: FRANKLIN ARCHULETA Rep #:[id number] : 1965 59 From: Cielo Tovar MD PCP: YG Pena Status:ADM I N Location: [place] [address] Subjective Subjective Patient seen and examined. He is complaining of some abdominal pain today at the level of the umbilicus. It appears he has a history of another likely hernia and he states he has been hurting for some time now but the pain has worsened since he has been here. He is passing gas. He denies any nausea or vomiting. Review of systems otherwise negative. He has remained hemodynamically stable. Objective Data Objective Data Vital Signs: Vital Signs Temp Pulse Resp BP Pulse Ox O2 Del Method 98.6 F 81 15 133/68 H 99 Room Air 01/11/25 09:46 01/11/25 09:46 01/11/25 09:46 01/11/25 09:46 01/11/25 09:46 01/11/25 09:46 Oxygen Delivery Method Room Air Weight: 213 lb 2.992 oz Body Mass Index (BMI) 31.4 Intake & Output: Intake and Output for Last 24 Hours 01/09/25 01/10/25 01/11/25 23:59 23:59 23:59 Intake Total 3599.70 / 3599.70 2940 / 2940 2110 / 2110 Output Total 1445 / 1595 750 / 750 Balance 3599.70 / 3599.70 1495 / 1345 1360 / 1360 Lab / Micro Data 01/11/25 06:19 01/11/25 05:30 Labs: Laboratory Results - last 24 hr 01/10/25 21:15: POC Glucose 193 H 01/11/25 01:26: Vancomycin Trough 21.8 H 01/11/25 05:30: WBC Cancelled, Corrected WBC Cancelled, RBC Cancelled, Hgb Cancelled, Hct Cancelled, MCV Cancelled, MCH Cancelled, MCHC Cancelled, RDW Std Deviation Cancelled, RDW Coeff of Francis Cancelled, Plt Count Cancelled, MPV Cancelled, Immature Gran % (Auto) Cancelled, Neut % (Auto) Cancelled, Lymph % (Auto) Cancelled, [place] % (Auto) Cancelled, Eos % (Auto) Cancelled, Baso % (Auto)Cancelled, Absolute Neuts (auto) Cancelled, Absolute Lymphs (auto) Cancelled, Total Counted Cancelled, Neutrophils % (Manual) Cancelled, Band Neutrophils % Cancelled, Lymphocytes % (Manual) Cancelled, Monocytes % (Manual) Cancelled, Eosinophils % (Manual) Cancelled, Basophils % (Manual) Cancelled, Metamyelocytes% Cancelled, Myelocytes % Cancelled, Promyelocytes % Cancelled, Blast Cells % Cancelled, Plasma Cell % (Manual) Cancelled, Other Cells % Cancelled, Nucleated RBC % Cancelled, Nucleated RBCs/100 WBC Cancelled, Differential Comment Cancelled, Diff Path Review Cancelled, Hypersegmented Neuts Cancelled, Atypical Lymphocytes Cancelled, Reactive Lymphocytes Cancelled, Smudge Cells Cancelled, Toxic Granulation Cancelled, Toxic Vacuolation Cancelled, Dohle Bodies Cancelled, Aleksey Rods Cancelled, Platelet Estimate Cancelled, Plt Morphology Comment Cancelled, RBC Morphology Cancelled 01/11/25 05:30: RBC Morphology Cancelled, Polychromasia Cancelled, HypochromasiaCancelled, Basophilic Stippling Cancelled, Anisocytosis Cancelled, Microcytosis Cancelled, Macrocytosis Cancelled, Spherocytes Cancelled, Sickle Cells Cancelled, Target Cells Cancelled, Tear Drop Cells Cancelled, Ovalocytes Cancelled, Stomatocytes Cancelled, Castellon-Joes Bodies Cancelled, [place] Cells Cancelled, Bite Cells Cancelled, Crenated Cell Cancelled, Acanthocytes (Spur) Cancelled, Rouleaux Cancelled, Schistocytes Cancelled, Sodium 129 L, Potassium 3.5, Chloride 99, Carbon Dioxide 17.3 L, Anion Gap 12, BUN 16, Creatinine 1.18, Estim Creat Clear Calc 78.27, Est GFR (MDRD) Non-Af 72, BUN/Creatinine Ratio 13.4, Glucose 275 H, Calcium 7.6, Total Bilirubin 2.05 H, AST 137 H, ALT 66 H, Alkaline Phosphatase 314 H, Total Protein 5.0 L, Albumin 2.2 L, Globulin 2.8, Albumin/Globulin Ratio 0.8 L 01/11/25 05:42: POC Glucose 251 H 01/11/25 06:19: WBC 8.0, RBC 2.49 L, Hgb 7.4 L, Hct 21.8 L, MCV 87.6, MCH 29.7, MCHC 33.9 D, RDW Std Deviation 56.7 H, RDW Coeff of Francis 18.6 H, Plt Count 130 L, MPV 12.1 H, Immature Gran % (Auto) 0.900, Neut % (Auto) 69.6, Lymph % (Auto) 12.6 L, [place] % (Auto) 11.8 H, Eos % (Auto) 4.6, Baso % (Auto) 0.5, Absolute Neuts (auto) 5.6, Absolute Lymphs (auto) 1.01, Nucleated RBC % 0 01/11/25 12:12: POC Glucose 268 H Micro: Microbiology 01/09/25 13:28 Urine Catheter - Catheter Urine Culture - Preliminary Yeast, not Mary albicans 01/09/25 13:30 Blood Culture (Wb) - Finger Blood Culture - Preliminary No growth in 48 hours. 01/09/25 13:35 Blood Culture (Wb) - Right Hand Blood Culture - Preliminary No growth in 48 hours. Physical Exam Const alert, oriented x3 and no apparent distress General Appearance: cooperative HEENT normocephalic, head/scalp atraumatic, hearing grossly normal bilaterally, moist oral mucous membranes and oropharynx normal Eyes EOMs intact bilaterally and conjunctivae normal Neck supple Neck Narrative: Trachea midline Lymph Lymphatic: no lymphedema noted Resp Resp Narrative: Mildly diminished breath sounds bibasilarly. No wheezes or crackles. Auscultation: Negative for rales, rhonchi or wheezes Cardio regular rate, regular rhythm, S1 normal heart sound, S2 normal heart sound and no murmurs GI normal to inspection, nondistended, normoactive bowel sounds and soft to palpation; Negative for non-tender GI Narrative: tender umbilical hernia, not reducible Palpation: hernia Extremity normal capillary refill, no clubbing, cyanosis or edema and no calf tenderness Extremity Narrative: Pedal and radial pulses are 2+ General Extremity: no tenderness to palpation of joints or extremities Skin General Skin Exam: no breakdown Neuro oriented x3, CN's II-XII intact bilaterally and moves all extremities Speech: speech normal Motor Exam: general weakness Psych thought process normal, cooperative and affect normal Mood & Affect: flat affect Assessment & Plan Assessment/Plan (1) Sepsis: (2) Abnormal urinalysis: PLAN: Plan #Sepsis due to UTI * Hypotension has resolved. Blood pressure stable. * Blood and urine cultures pending. He does have a history of known left-sided staghorn calculi and stenting and follows with Dr. Rascon * Blood and urine cultures pending. Continue broad-spectrum antibiotics with vancomycin and meropenem * Critical care on board. * #Lactic acidosis: Likely due to sepsis. Resolved with hydration. #ISABEL: Resolved. Creatinine is down to 1.18. #Umbilical hernia * Has tender umbilical hernia which is nonreducible. May be strangulated. * General surgery consulted. On IV morphine as needed for pain. Await general surgery evaluation. * #History of compression fractures of T8-T12 * PT OT on board. Fall precautions. * Pain meds as needed. #Hypomagnesemia: Resolved with replacement. 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 Aldactone and nadolol held on account of hypotension * Ammonia level was 61. #History of anemia: * Hemoglobin is still 7.4 today. Baseline is around 8-9 though he has been as low as 7.2 before. * No clear evidence of bleeding. * May be due to his history of liver disease also. * Will monitor and transfuse if hemoglobin is less than 7. * #History of venous thrombosis: Not anticoagulated due to history of hematuria. Will monitor. #History of hypotension: On midodrine. Continue midodrine #GERD: On PPI #Type 2 diabetes mellitus: On Lantus. Insulin sliding scale. Accu-Cheks ACHS. #Hyperlipidemia: On statin DVT prophylaxis: Heparin. DC heparin and switch to SCDs on account of anemia Charges/Coding Visit Charges Inpatient E&M: 47992 Subs Hosp L2 01/11/25 1751 <Electronically signed by Cielo Tovar MD> Cielo Tovar MD Cosigner Signature (if applicable): CC: ~ Signed [facility] Work Phone: [phone] Consult note Author Jefferson Malave [facility] Note Date/Time January 11, 2025 4:41 pm [facility] Medical Records Department [address] [place] [address] Consultation - Surgical 01/11/25 1634 MR#: [id number] Acct: [id number] Name: FRANKLIN ARCHULETA Rep #:[id number] : 1965 59 From: Jefferson Malave MD PCP: YG Pena Status:ADM I N Location: [place] [address] Assessment & Plan Assessment/Plan (1) Umbilical hernia: PLAN: Plan The patient is a 59-year-old male admitted with sepsis secondary to UTI. He does have a chronically incarcerated fat containing umbilical hernia with ascites fluid within it. The ascites fluid is secondary to cirrhosis. Patient does have signs of portal hypertension on imaging. This hernia was reducible with moderate manipulation. This dramatically improved his symptoms afterward. In light of his cirrhosis/ascites/portal hypertension, he would not be an ideal surgical candidate. Would recommend continue medical management of his cirrhosis prior to any thought of hernia repair. In fact I would recommend thatthis be performed at a tertiary center if needed. He is agreeable to this plan. Will continue to follow as needed HPI Consult Data Date of Consult: 01/11/25 HPI Narrative Reason for Consultation: Umbilical hernia HPI Narrative: FRANKLIN ARCHULETA, is a 59 M who presented to the emergency room on 01/09/2025 with complaints of suprapubic pain and back pain. Patient was just recently discharged from the hospital with acute kidney injury, hypokalemia and UTI. Patient also recently completed treatment for C. difficile colitis. Patient presented to the emergency room and was seen and evaluated by the ER staff. He met sepsis criteria and was admitted. During this admission it was noted that he had pain at the umbilicus. He has a known ventral/umbilical hernia. A general surgery consult was obtained for evaluation. Patient also has history of fatty liver which has developed into cirrhosis. Imaging indicates ascites aswell as findings on CT consistent with portal hypertension. [facility] Medical History (Updated 01/11/25 @ 16:[address] Jefferson Malave MD) Umbilical hernia Chronic hyponatremia Weakness Diarrhea Sepsis Acidosis, lactic Acute hypotension [...] diarrh ea #60 tabs 09/02/24 11/28/24 Rx acetaminophen 500 mg tablet 1,000 mg PO [...] 11/21/24 11/28/24 History spironolactone 50 mg tablet 100 mg PO DAILY diuretic 0 11/21/24 11/28/24 History thiamine HCl (vitamin B1) 100 [...] solution (Constulose) L.acidophil,salivari-Bifido 1 cap PO TID pobiotic #120 caps 12/02/24 Unknown Rx bifidum-Strep thermoph 175 mg capsule potassium, sodium phosphates 280 1 packet PO BID elect rolytes #100 12/02/24 Unknown Rx mg-160 mg-250 mg oral powder packet ea cyclobenzaprine 10 mg tablet 10 mg PO QHS muscle relax er 01/02/25 Unknown History ferrous sulfate 325 mg (65 mg 325 mg PO QODAY suppleme nt 01/02/25 Unknown History iron) tablet (FeroSul) nadolol 20 mg tablet 20 mg PO DAILY bp 01/02/25 U nknown History insulin glargine-yfgn 100 unit/mL 20 unit (0.2 mL) sub cut DAILY #0 mL 01/05/25 Unknown Rx (3 mL) subcutaneous pen insulin glargine-yfgn 100 unit/mL 20 unit (0.2 mL) sub cut QHS #0 mL 01/05/25 Unknown Rx (3 mL) subcutaneous pen insulin lispro 100 unit/mL 10 unit (0.1 mL) subcut TID AC #0 mL 01/05/25 Unknown Rx subcutaneous pen (Humalog KwikPen (U-100) Insulin) insulin lispro 100 unit/mL See Protocol subcut ACHS #0 mL 01/05/25 Unknown Rx subcutaneous pen (Humalog KwikPen (U-100) Insulin) Allergy/AdvReac Type Severity Reaction Status Date / [...] use type: does not use Physical Exam Narrative He is alert and oriented x 3. He is in no acute distress. Head is normocephalic and atraumatic. Pupils are equal round and reactive to light. Abdomen is obese soft and nondistended. He has a visibly obvious umbilical hernia. There is moderate tenderness with palpation. There is some mild skin darkening overlying this area but no signs of erythema or cellulitis. With moderate manipulation, I was able to easily reduce the hernia which greatly improved his discomfort afterward. For the remainder of our conversation, it seemed as though the hernia remained reduced. Review of his CT scans for the past 4 months or so show that the hernia has remained fat-containing and relatively stable with some mild ascitic fluid within it. There was no bowel within the hernia Lab / Micro Data 01/11/25 06:19 01/11/25 05:30 Labs: Laboratory Results - last 24 hr 01/10/25 21:15: POC Glucose 193 H 01/11/25 01:26: Vancomycin Trough 21.8 H 01/11/25 05:30: WBC Cancelled, Corrected WBC Cancelled, RBC Cancelled, Hgb Cancelled, Hct Cancelled, MCV Cancelled, MCH Cancelled, MCHC Cancelled, RDW Std Deviation Cancelled, RDW Coeff of Francis Cancelled, Plt Count Cancelled, MPV Cancelled, Immature Gran % (Auto) Cancelled, Neut % (Auto) Cancelled, Lymph % (Auto) Cancelled, [place] % (Auto) Cancelled, Eos % (Auto) Cancelled, Baso % (Auto)Cancelled, Absolute Neuts (auto) Cancelled, Absolute Lymphs (auto) Cancelled, Total Counted Cancelled, Neutrophils % (Manual) Cancelled, Band Neutrophils % Cancelled, Lymphocytes % (Manual) Cancelled, Monocytes % (Manual) Cancelled, Eosinophils % (Manual) Cancelled, Basophils % (Manual) Cancelled, Metamyelocytes% Cancelled, Myelocytes % Cancelled, Promyelocytes % Cancelled, Blast Cells % Cancelled, Plasma Cell % (Manual) Cancelled, Other Cells % Cancelled, Nucleated RBC % Cancelled, Nucleated RBCs/100 WBC Cancelled, Differential Comment Cancelled, Diff Path Review Cancelled, Hypersegmented Neuts Cancelled, Atypical Lymphocytes Cancelled, Reactive Lymphocytes Cancelled, Smudge Cells Cancelled, Toxic Granulation Cancelled, Toxic Vacuolation Cancelled, Dohle Bodies Cancelled, Aleksey Rods Cancelled, Platelet Estimate Cancelled, Plt Morphology Comment Cancelled, RBC Morphology Cancelled 01/11/25 05:30: RBC Morphology Cancelled, Polychromasia Cancelled, HypochromasiaCancelled, Basophilic Stippling Cancelled, Anisocytosis Cancelled, Microcytosis Cancelled, Macrocytosis Cancelled, Spherocytes Cancelled, Sickle Cells Cancelled, Target Cells Cancelled, Tear Drop Cells Cancelled, Ovalocytes Cancelled, Stomatocytes Cancelled, Castellon-Joes Bodies Cancelled, Paloma Cells Cancelled, Bite Cells Cancelled, Crenated Cell Cancelled, Acanthocytes (Spur) Cancelled, Rouleaux Cancelled, Schistocytes Cancelled, Sodium 129 L, Potassium 3.5, Chloride 99, Carbon Dioxide 17.3 L, Anion Gap 12, BUN 16, Creatinine 1.18, Estim Creat Clear Calc 78.27, Est GFR (MDRD) Non-Af 72, BUN/Creatinine Ratio 13.4, Glucose 275 H, Calcium 7.6, Total Bilirubin 2.05 H, AST 137 H, ALT 66 H, Alkaline Phosphatase 314 H, Total Protein 5.0 L, Albumin 2.2 L, Globulin 2.8, Albumin/Globulin Ratio 0.8 L 01/11/25 05:42: POC Glucose 251 H 01/11/25 06:19: WBC 8.0, RBC 2.49 L, Hgb 7.4 L, Hct 21.8 L, MCV 87.6, MCH 29.7, MCHC 33.9 D, RDW Std Deviation 56.7 H, RDW Coeff of Francis 18.6 H, Plt Count 130 L, MPV 12.1 H, Immature Gran % (Auto) 0.900, Neut % (Auto) 69.6, Lymph % (Auto) 12.6 L, [place] % (Auto) 11.8 H, Eos % (Auto) 4.6, Baso % (Auto) 0.5, Absolute Neuts (auto) 5.6, Absolute Lymphs (auto) 1.01, Nucleated RBC % 0 01/11/25 12:12: POC Glucose 268 H Micro: Microbiology 01/09/25 13:28 Urine Catheter - Catheter Urine Culture - Preliminary Yeast, not Mary albicans 01/09/25 13:30 Blood Culture (Wb) - Finger Blood Culture - Preliminary No growth in 48 hours. 01/09/25 13:35 Blood Culture (Wb) - Right Hand Blood Culture - Preliminary No growth in 48 hours. Charges/Coding Visit Charges Inpatient E&M: 69652 Init Hosp L3 01/11/25 1641 <Electronically signed by Jefferson Malave MD> Cosigner Signature (if applicable): CC: YG Elias~ Signed [facility] Work Phone: [phone] 120-271706-10-2025 Progress note Author Bola Meraz [facility] Note Date/Time January 11, 2025 9:07 am [facility] Medical Records Department [address] [place] [address] Progress Note - Strategic Marketing Manager 01/11/25 0722 MR#: [id number] Acct: [id number] Name: FRANKLIN ARCHULETA Rep #:[id number] : 1965 59 From: Bola Meraz DO PCP: YG Pena Status:ADM I N Location: ICU CVICU20 1-1 Assessment & Plan Assessment/Plan (1) Sepsis: PLAN: Plan RECOMMENDATIONS: 1. Continue antimicrobials, pending culture data. 2. Continue scheduled midodrine. 3. Low threshold for urology consultation. 4. Encourage incentive spirometer use and mobilize patient as tolerated. 5. The patient is medically stable for transfer out of the intensive care unit. Will sign off from a critical care perspective. IMPRESSIONS: 1. Sepsis Clinical concern for recurrent UTI. The patient did receive supplemental IV fluid hydration with appropriate hemodynamic response. He does have a known history of a left-sided staghorn calculi with stenting. He is followed by Dr. Rascon of urology. At this time, the patient will be continued on antimicrobials, pending culture data. If he continues to have ongoing hematuria, recommend consultation be placed to urology. 2. Acute kidney injury Resolved. Most likely secondary to ischemic ATN in the setting of sepsis. Continue current supportive care. Continue to monitor urine output. No currentindication for renal replacement therapy. 3. History of Boyer liver cirrhosis/history of hepatic encephalopathy/chronic hypotension/GERD/diabetes mellitus Complicates care, management, recovery and prognosis. Continue home medicationsas indicated. Continue scheduled midodrine. This note was generated with [employer] dictation software. It may contain incorrectwords, spelling, and punctuation that were not noted in checking the note beforesigning. Subjective Subjective The patient was seen and examined at the bedside this morning. Events from the last 24 hours have been reviewed. The patient is currently afebrile, hemodynamically stable and maintaining appropriate oxygen saturations on room air. The patient is documented to be overall net +5.1 L for the hospitalization. Hemoglobin remained stable at 7.4 g/dL. Creatinine is within normal limits. Objective Data Objective Data The patient's most recent lab work, culture data and imaging studies have all been personally reviewed. Blood and urine cultures are currently pending. Vital Signs: Vital Signs Temp Pulse Resp BP Pulse Ox O2 Del Method 98.9 F 82 21 H 138/68 H 95 Room Air 01/11/25 06:05 01/11/25 06:05 01/11/25 06:05 01/11/25 06:05 01/11/25 06:05 01/11/25 06:05 Oxygen Delivery Method Room Air Weight: 213 lb 2.992 oz Body Mass Index (BMI) 31.4 Intake & Output: Intake and Output for Last 24 Hours 01/09/25 01/10/25 01/11/25 23:59 23:59 23:59 Intake Total 3599.70 / 3599.70 2940 / 2940 840 / 840 Output Total 1445 / 1595 750 / 750 Balance 3599.70 / 3599.70 1495 / 1345 90 / 90 Lab / Micro Data Attestation: I reviewed the patient's lab results. 01/11/25 06:19 01/11/25 05:30 Labs: Laboratory Results - last 24 hr 01/10/25 08:06: POC Glucose 195 H 01/10/25 11:07: POC Glucose 190 H 01/10/25 21:15: POC Glucose 193 H 01/11/25 01:26: Vancomycin Trough 21.8 H 01/11/25 05:30: WBC Cancelled, Corrected WBC Cancelled, RBC Cancelled, Hgb Cancelled, Hct Cancelled, MCV Cancelled, MCH Cancelled, MCHC Cancelled, RDW Std Deviation Cancelled, RDW Coeff of Francis Cancelled, Plt Count Cancelled, MPV Cancelled, Immature Gran % (Auto) Cancelled, Neut % (Auto) Cancelled, Lymph % (Auto) Cancelled, [place] % (Auto) Cancelled, Eos % (Auto) Cancelled, Baso % (Auto)Cancelled, Absolute Neuts (auto) Cancelled, Absolute Lymphs (auto) Cancelled, Total Counted Cancelled, Neutrophils % (Manual) Cancelled, Band Neutrophils % Cancelled, Lymphocytes % (Manual) Cancelled, Monocytes % (Manual) Cancelled, Eosinophils % (Manual) Cancelled, Basophils % (Manual) Cancelled, Metamyelocytes% Cancelled, Myelocytes % Cancelled, Promyelocytes % Cancelled, Blast Cells % Cancelled, Plasma Cell % (Manual) Cancelled, Other Cells % Cancelled, Nucleated RBC % Cancelled, Nucleated RBCs/100 WBC Cancelled, Differential Comment Cancelled, Diff Path Review Cancelled, Hypersegmented Neuts Cancelled, Atypical Lymphocytes Cancelled, Reactive Lymphocytes Cancelled, Smudge Cells Cancelled, Toxic Granulation Cancelled, Toxic Vacuolation Cancelled, Dohle Bodies Cancelled, Aleksey Rods Cancelled, Platelet Estimate Cancelled, Plt Morphology Comment Cancelled, RBC Morphology Cancelled 01/11/25 05:30: RBC Morphology Cancelled, Polychromasia Cancelled, HypochromasiaCancelled, Basophilic Stippling Cancelled, Anisocytosis Cancelled, Microcytosis Cancelled, Macrocytosis Cancelled, Spherocytes Cancelled, Sickle Cells Cancelled, Target Cells Cancelled, Tear Drop Cells Cancelled, Ovalocytes Cancelled, Stomatocytes Cancelled, Castellon-Joes Bodies Cancelled, Paloma Cells Cancelled, Bite Cells Cancelled, Crenated Cell Cancelled, Acanthocytes (Spur) Cancelled, Rouleaux Cancelled, Schistocytes Cancelled, Sodium 129 L, Potassium 3.5, Chloride 99, Carbon Dioxide 17.3 L, Anion Gap 12, BUN 16, Creatinine 1.18, Estim Creat Clear Calc 78.27, Est GFR (MDRD) Non-Af 72, BUN/Creatinine Ratio 13.4, Glucose 275 H, Calcium 7.6, Total Bilirubin 2.05 H, AST 137 H, ALT 66 H, Alkaline Phosphatase 314 H, Total Protein 5.0 L, Albumin 2.2 L, Globulin 2.8, Albumin/Globulin Ratio 0.8 L 01/11/25 05:42: POC Glucose 251 H 01/11/25 06:19: WBC 8.0, RBC 2.49 L, Hgb 7.4 L, Hct 21.8 L, MCV 87.6, MCH 29.7, MCHC 33.9 D, RDW Std Deviation 56.7 H, RDW Coeff of Francis 18.6 H, Plt Count 130 L, MPV 12.1 H, Immature Gran % (Auto) 0.900, Neut % (Auto) 69.6, Lymph % (Auto) 12.6 L, [place] % (Auto) 11.8 H, Eos % (Auto) 4.6, Baso % (Auto) 0.5, Absolute Neuts (auto) 5.6, Absolute Lymphs (auto) 1.01, Nucleated RBC % 0 ABG Data ABG results: ABG 01/09/25 20:50 Specimen Type TRAMAINE Sample Site Not entered VBG pH 7.36 VBG pO2 49 H VBG HCO3 14 L VBG Total CO2 15 L VBG O2 Sat (Calc) 84 H VBG Base Excess -11 L POC Mix VBG pCO2 Pt Tmp 24.7 L O2 Delivery Device Not entered Radiography Diagnostic Testing: Radiology Impression Abdomen/Pelvis CT 01/09/25 10:31 IMPRESSION: Fractures of 10, specially T 11 and T 12 with questionable lytic process. Differential diagnostic considerations include neoplasm as well as other benign etiologies. Double-J stent in the left collecting system extending to the left bladder base. Kidney staghorn calculus. Cholelithiasis without evidence of cholecystitis. Ventral hernia containing fat and ascites. Cholelithiasis without cholecystitis Cirrhosis and small amount of ascites. Stigmata of portal venous hypertension. No liver masses identified. Reading Location: [facility] Physical Exam Const alert, oriented x3 and no apparent distress General Appearance: cooperative HEENT normocephalic and head/scalp atraumatic Eyes PERRL, EOMs intact bilaterally and conjunctivae normal Neck supple General: trachea midline Chest inspection of chest normal Resp normal respiratory effort Auscultation: diminished lung sounds; Negative for rales, rhonchi or wheezes Cardio regular rate and regular rhythm GI soft to palpation and non-tender GI Narrative: Hernia present. Extremity no clubbing, cyanosis or edema Skin no rashes or lesions noted Neuro CN's II-XII intact bilaterally, moves all extremities and no focal motor deficits Psych Mood & Affect: flat affect Charges/Coding Visit Charges Inpatient E&M: 97151 Subs Hosp L2 01/11/25 0907 <Electronically signed by Bola Meraz DO> Cosigner Signature (if applicable): CC: ~ Signed [facility] Work Phone: 1([phone] 479-102906-10-2025 Consult note Author Boone Garcia [facility] Note Date/Time January 11, 2025 2:[address] [facility] Medical Records Department [address] [place] [address] Pharmacokinetic/Renal -Consult 01/11/25 0211 MR#: [id number] Acct: [id number] Name: FRANKLIN ARCHULETA Rep #:[id number] : 1965 59 From: Boone Gacria PCP: YG Pena Status:ADM I N Y Location: ICU CVICU20 1-1 Consult Antibiotic Management Pharmacy has been consulted to manage selected antibiotic: Vancomycin Type of Intervention Type of Consult: Follow-up Suspected Infection Suspected Infection: Sepsis Labs Labs: Sodium 129 mmol/L (133-145) L 01/10/25 03:55 Potassium 3.4 mmol/L (3.3-5.1) 01/10/25 03:55 Chloride 101 mmol/L (98-108) 01/10/25 03:55 Carbon Dioxide 13.1 mmol/L (21.0-32.0) L 01/10/25 03:55 Anion Gap 15 (5-15) 01/10/25 03:55 BUN 27 mg/dL (4-19) H 01/10/25 03:55 Creatinine 1.95 mg/dL (0.70-1.20) H 01/10/25 03:55 Est GFR (MDRD) Non-Af 39 (>60) L 01/10/25 03:55 BUN/Creatinine Ratio 13.7 RATIO (10-20) 01/10/25 03:55 Glucose 247 mg/dL (70-99) H 01/10/25 03:55 Vancomycin Trough 21.8 ug/mL (5.0-15.0) H 01/11/25 01:26 Dosing Weight Weight used for dosin kg Estimated Creatinine Clearance Estimated Creatinine Clearance: 46 Goal Trough Goal Trough: 15-20 mcg/mL Pharmacy Plan for Drug Dosing Pharmacy Plan for Drug Dosing: Vancomycin trough level of 21.8, drawn 10.6hrs post-dose, was above the target range of 15-20. Will suspend current dosing and will draw a random vanco level in 12 hours to determine further orders. Pharmacy Service will continue to monitor and adjust dosing as required. Follow-Up Labs Follow-Up Labs: Trough: Vancomycin (random) Date/Time Labs Ordered Labs to be done on [date and time ordered]: 01/11/25 @1330 (random) 01/11/25 0214 <Electronically signed by Boone bower> Date _ Boone Ferguson Signature (if applicable): Date CC: ~ Signed [facility] Work Phone: 1([phone]) 573-915306-09-2025 Progress note Author Cieolestuardo Tovar [facility] Note Date/Time January 10, 2025 6:23p [facility] Medical Records Department [address] [place] [address] Progress Note 01/10/251815 MR#: [id number] Acct: [id number] Name: FRANKLIN ARCHULETA Rep #:[id number] : 1965 59 From: Cielo Tovar MD PCP: YG Pena Status:ADM I N Location: ICU CVICU20 1-1 Subjective Subjective Patient seen and examined. He had no active complaints today and had an uneventful night. He denied any fever, chills, cough, chest pain, palpitations, dizziness, nausea, vomiting or any other symptoms. REview of systems was otherwise negative. Objective Data Objective Data Vital Signs: Vital Signs Temp Pulse Resp BP Pulse Ox O2 Del Method 98.0 F 71 18 114/64 100 Room Air 01/10/25 14:37 01/10/25 14:37 01/10/25 14:37 01/10/25 14:37 01/10/25 14:37 01/10/25 14:37 Oxygen Delivery Method Room Air Weight: 211 lb 10.3 oz Body Mass Index (BMI) 31.2 Intake & Output: Intake and Output for Last 24 Hours 01/08/25 01/09/25 01/10/25 23:59 23:59 23:59 Intake Total 3599.70 / 3599.70 1790 / 1790 Output Total 1200 / 1200 Balance 3599.70 / 3599.70 590 / 590 Lab / Micro Data 01/10/25 03:55 01/10/25 03:55 Labs: Laboratory Results - last 24 hr 01/09/25 15:35: MRSA (PCR) Negative 01/09/25 17:35: Sodium 132 L, Potassium 3.7, Chloride 106, Carbon Dioxide 14.1 L, Anion Gap 11, BUN 25 H, Creatinine 1.78 H, Estim Creat Clear Calc 50.08, Est GFR (MDRD) Non-Af 44 L, BUN/Creatinine Ratio 13.8, Glucose 119 H, Lactic Acid 2.4 H*, Calcium 7.7, Vitamin D 25-Hydroxy 10.0 L 01/09/25 20:30: Ammonia 61.1 H 01/09/25 21:57: POC Glucose 143 H 01/10/25 03:20: WBC Cancelled, Corrected WBC Cancelled, RBC Cancelled, Hgb Cancelled, Hct Cancelled, MCV Cancelled, MCH Cancelled, MCHC Cancelled, RDW Std Deviation Cancelled, RDW Coeff of Francis Cancelled, Plt Count Cancelled, MPV Cancelled, Immature Gran % (Auto) Cancelled, Neut % (Auto) Cancelled, Lymph % (Auto) Cancelled, [place] % (Auto) Cancelled, Eos % (Auto) Cancelled, Baso % (Auto)Cancelled, Absolute Neuts (auto) Cancelled, Absolute Lymphs (auto) Cancelled, Total Counted Cancelled, Neutrophils % (Manual) Cancelled, Band Neutrophils % Cancelled, Lymphocytes % (Manual) Cancelled, Monocytes % (Manual) Cancelled, Eosinophils % (Manual) Cancelled, Basophils % (Manual) Cancelled, Metamyelocytes% Cancelled, Myelocytes % Cancelled, Promyelocytes % Cancelled, Blast Cells % Cancelled, Plasma Cell % (Manual) Cancelled, Other Cells % Cancelled, Nucleated RBC % Cancelled, Nucleated RBCs/100 WBC Cancelled, Differential Comment Cancelled, Diff Path Review Cancelled, Hypersegmented Neuts Cancelled, Atypical Lymphocytes Cancelled, Reactive Lymphocytes Cancelled, Smudge Cells Cancelled, Toxic Granulation Cancelled, Toxic Vacuolation Cancelled, Dohle Bodies Cancelled, Aleksey Rods Cancelled, Platelet Estimate Cancelled, Plt Morphology Comment Cancelled, RBC Morphology Cancelled 01/10/25 03:20: RBC Morphology Cancelled, Polychromasia Cancelled, HypochromasiaCancelled, Basophilic Stippling Cancelled, Anisocytosis Cancelled, Microcytosis Cancelled, Macrocytosis Cancelled, Spherocytes Cancelled, Sickle Cells Cancelled, Target Cells Cancelled, Tear Drop Cells Cancelled, Ovalocytes Cancelled, Stomatocytes Cancelled, Castellon-Joes Bodies Cancelled, Paloma Cells Cancelled, Bite Cells Cancelled, Crenated Cell Cancelled, Acanthocytes (Spur) Cancelled, Rouleaux Cancelled, Schistocytes Cancelled, Sodium Cancelled, Potassium Cancelled, Chloride Cancelled, Carbon Dioxide Cancelled, Anion Gap Cancelled, BUN Cancelled, Creatinine Cancelled, Estim Creat Clear Calc Cancelled, Est GFR (MDRD) Non-Af Cancelled, BUN/Creatinine Ratio Cancelled, Glucose Cancelled, Calcium Cancelled, Phosphorus Cancelled, Magnesium Cancelled,Total Bilirubin Cancelled, AST Cancelled, ALT Cancelled, Alkaline Phosphatase Cancelled, Total Protein Cancelled, Albumin Cancelled, Globulin Cancelled, Albumin/Globulin Ratio Cancelled 01/10/25 03:55: WBC 9.6, RBC 2.53 L, Hgb 7.4 L, Hct 23.1 L, MCV 91.3, MCH 29.2, MCHC 32.0, RDW Std Deviation 60.1 H, RDW Coeff of Francis 18.7 H, Plt Count 110 L, MPV 12.3 H, Immature Gran % (Auto) 0.500, Neut % (Auto) 76.1 H, Lymph % (Auto) 8.8 L, [place] % (Auto) 8.2, Eos % (Auto) 5.9 H, Baso % (Auto) 0.5, Absolute Neuts (auto) 7.3, Absolute Lymphs (auto) 0.85, Nucleated RBC % 0, Sodium 129 L, Potassium 3.4, Chloride 101, Carbon Dioxide 13.1 L, Anion Gap 15, BUN 27 H, Creatinine 1.95 H, Estim Creat Clear Calc 45.71 L, Est GFR (MDRD) Non-Af 39 L, BUN/Creatinine Ratio 13.7, Glucose 247 H, Calcium 7.8, Phosphorus 3.5, Magnesium1.4 L, Total Bilirubin 1.57 H, AST 101 H, ALT 54 H, Alkaline Phosphatase 244 H, Total Protein 5.0 L, Albumin 2.4 L, Globulin 2.6, Albumin/Globulin Ratio 0.9 01/10/25 08:06: POC Glucose 195 H 01/10/25 11:07: POC Glucose 190 H ABG Data ABG results: ABG 01/09/25 20:50 Specimen Type TRAMAINE Sample Site Not entered VBG pH 7.36 VBG pO2 49 H VBG HCO3 14 L VBG Total CO2 15 L VBG O2 Sat (Calc) 84 H VBG Base Excess -11 L POC Mix VBG pCO2 Pt Tmp 24.7 L O2 Delivery Device Not entered Physical Exam Const alert, oriented x3 and no apparent distress General Appearance: cooperative HEENT normocephalic, head/scalp atraumatic, moist oral mucous membranes and oropharynxnormal Eyes PERRL and EOMs intact bilaterally Neck no lymphadenopathy and supple Lymph Lymphatic: no lymphedema noted Resp normal respiratory effort, normal air movement and clear to auscultation bilaterally Cardio regular rate, regular rhythm, S1 normal heart sound, S2 normal heart sound and no murmurs GI normal to inspection, nondistended, normoactive bowel sounds and soft to palpation Extremity normal capillary refill, no clubbing, cyanosis or edema and no calf tenderness General Extremity: no tenderness to palpation of joints or extremities Skin General Skin Exam: no breakdown Neuro CN's II-XII intact bilaterally Motor Exam: general weakness Psych thought process normal and cooperative Mood & Affect: flat affect Assessment & Plan Assessment/Plan (1) Sepsis: (2) Abnormal urinalysis: PLAN: Plan #Sepsis due to UTI * Hypotension has resolved. Blood pressure stable. * Blood and urine cultures pending. He does have a history of known left-sided staghorn calculi and stenting and follows with Dr. Rascon * Blood and urine cultures pending. Continue broad-spectrum antibiotics with vancomycin and meropenem * Critical care on board. * #Lactic acidosis: Likely due to sepsis. Resolved with hydration. #ISABEL: * Likely prerenal due to sepsis. Creatinine was 1.77 on admission with baseline being between 0.8-1. * Will hydrate with IV fluids and monitor. Diuretics and other nephrotoxic meds on hold. Creatinine today slightly up to 1.95. Will monitor closely and if continues to trend upwards tomorrow will consult nephrology. * #History of compression fractures of T8-T12 * PT OT on board. Fall precautions. * Pain meds as needed. #Hypomagnesemia: Magnesium is 1.4. Replace and trend. 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 Aldactone and nadolol held on account of hypotension * Ammonia level was 61. #History of anemia: * Hemoglobin is 7.4. Baseline is around 8-9 though he has been as low as 7.2 before. * No clear evidence of bleeding. * May be due to his history of liver disease also. * Will monitor and transfuse if hemoglobin is less than 7. * #History of venous thrombosis: Not anticoagulated due to history of hematuria. Will monitor. #History of hypotension: On midodrine. Continue midodrine #GERD: On PPI #Type 2 diabetes mellitus: On Lantus. Insulin sliding scale. Accu-Cheks ACHS. #Hyperlipidemia: On statin DVT prophylaxis: Heparin Charges/Coding Visit Charges Inpatient E&M: 18667 Subs Hosp L3 01/10/25 4250 <Electronically signed by Cielo Tovar MD> Cielo Tovar MD Cosigner Signature (if applicable): CC: ~ Signed [facility] Work Phone: 1(555) 206-972006-09-2025 Progress note Author Bola Brown [facility] Note Date/Time January 10, 2025 8:52a m [facility] Medical Records Department [address] [place] [address] Progress Note - Strategic Marketing Manager 01/10/25 0700 MR#: [id number] Acct: [id number] Name: FRANKLIN ARCHULETA Rep #:[id number] : 1965 59 From: Bola Meraz DO PCP: YG Pena Status:ADM I N Location: ICU CVICU20 1-1 Assessment & Plan Assessment/Plan (1) Sepsis: PLAN: Plan RECOMMENDATIONS: 1. Continue antimicrobials, pending culture data. 2. Continue scheduled midodrine. 3. Low threshold for urology consultation. 4. Continue sodium bicarbonate. 5. Encourage incentive spirometer use and mobilize patient as tolerated. IMPRESSIONS: 1. Sepsis Clinical concern for recurrent UTI. The patient did receive supplemental IV fluid hydration with appropriate hemodynamic response. He has not required the initiation of vasopressor support. He does have a known history of a left-sidedstaghorn calculi with stenting. He is followed by Dr. Rascon of urology. At this time, the patient will be continued on antimicrobials, pending culture data. If he continues to have ongoing hematuria, recommend consultation be placed to urology. 2. Acute kidney injury Most likely secondary to ischemic ATN in the setting of sepsis. Continue current supportive care. Continue to monitor urine output. No current indication for renal replacement therapy. 3. History of Boyer liver cirrhosis/history of hepatic encephalopathy/chronic hypotension/GERD/diabetes mellitus Complicates care, management, recovery and prognosis. Continue home medicationsas indicated. Continue scheduled midodrine. This note was generated with [employer] dictation software. It may contain incorrectwords, spelling, and punctuation that were not noted in checking the note beforesigning. Subjective Subjective The patient was seen and examined at the bedside this morning. Events from the last 24 hours have been reviewed. The patient is currently afebrile, hemodynamically stable and maintaining appropriate oxygen saturations on room air. The patient is currently documented to be overall net +3 L for the hospitalization. Hemoglobin this morning was noted to be 7.4 g/dL. Platelet count is low at 110,000. Creatinine has increased to 1.95. The patient does report the presence of hematuria this morning. Objective Data Objective Data The patient's most recent lab work, culture data and imaging studies have all been personally reviewed. Blood and urine cultures are currently pending. Vital Signs: Vital Signs Temp Pulse Resp BP Pulse Ox O2 Del Method 97.7 F L 70 16 95/61 98 Room Air 01/10/25 06:00 01/10/25 06:00 01/10/25 06:00 01/10/25 06:00 01/10/25 06:00 01/10/25 06:00 Oxygen Delivery Method Room Air Weight: 211 lb 10.3 oz Body Mass Index (BMI) 31.2 Intake & Output: Intake and Output for Last 24 Hours 01/08/25 01/09/25 01/10/25 23:59 23:59 23:59 Intake Total 3599.70 / 3599.70 320 / 320 Output Total 950 / 950 Balance 3599.70 / 3599.70 -630 / -630 Lab / Micro Data Attestation: I reviewed the patient's lab results. 01/10/25 03:55 01/10/25 03:55 Labs: Laboratory Results - last 24 hr 01/09/25 10:40: WBC 13.2 H, RBC 2.69 L, Hgb 7.9 L, Hct 24.3 L, MCV 90.3, MCH 29.4, MCHC 32.5, RDW Std Deviation 57.5 H, RDW Coeff of Francis 18.1 H, Plt Count 114 L, MPV 11.7, Immature Gran % (Auto) 0.900, Neut % (Auto) 80.6 H, Lymph % (Auto) 7.2 L, [place] % (Auto) 6.7, Eos % (Auto) 4.2, Baso % (Auto) 0.4, Absolute Neuts (auto) 10.6 H, Absolute Lymphs (auto) 0.95, Nucleated RBC % 0, Sodium 129 L, Potassium 3.6, Chloride 103, Carbon Dioxide 13.6 L, Anion Gap 13, BUN 24 H, Creatinine 1.77 H, Estim Creat Clear Calc 50.61, Est GFR (MDRD) Non-Af 44 L, BUN/Creatinine Ratio 13.4, Glucose 149 H, Lactic Acid 3.1 H*, Calcium 8.4, TotalBilirubin 1.15, AST 68 H, ALT 42, Alkaline Phosphatase 196 H, Total Creatine Kinase 34, Total Protein 5.3 L, Albumin 2.4 L, Globulin 2.9, Albumin/Globulin Ratio 0.8 L 01/09/25 13:28: Urine Color Red, Urine Clarity Turbid, Urine pH 6.0, Ur SpecificGravity 1.015, Urine Protein 500 H, Urine Glucose (UA) Normal, Urine Ketones 5 H, Urine Occult Blood 250 H, Urine Nitrite Negative, Urine Bilirubin 1 H, Urine Urobilinogen Normal, Ur Leukocyte Esterase 500 H, Urine RBC > 100 SEEN, Urine WBC 50-100 SEEN, Ur Squamous Epith Cells 0-5 SEEN, Urine Bacteria 0 SEEN, Urine Mucus 0 SEEN 01/09/25 15:35: MRSA (PCR) Negative 01/09/25 16:09: POC Glucose 99 01/09/25 17:35: Sodium 132 L, Potassium 3.7, Chloride 106, Carbon Dioxide 14.1 L, Anion Gap 11, BUN 25 H, Creatinine 1.78 H, Estim Creat Clear Calc 50.08, Est GFR (MDRD) Non-Af 44 L, BUN/Creatinine Ratio 13.8, Glucose 119 H, Lactic Acid 2.4 H*, Calcium 7.7, Vitamin D 25-Hydroxy 10.0 L 01/09/25 20:30: Ammonia 61.1 H 01/09/25 21:57: POC Glucose 143 H 01/10/25 03:20: WBC Cancelled, Corrected WBC Cancelled, RBC Cancelled, Hgb Cancelled, Hct Cancelled, MCV Cancelled, MCH Cancelled, MCHC Cancelled, RDW Std Deviation Cancelled, RDW Coeff of Francis Cancelled, Plt Count Cancelled, MPV Cancelled, Immature Gran % (Auto) Cancelled, Neut % (Auto) Cancelled, Lymph % (Auto) Cancelled, [place] % (Auto) Cancelled, Eos % (Auto) Cancelled, Baso % (Auto)Cancelled, Absolute Neuts (auto) Cancelled, Absolute Lymphs (auto) Cancelled, Total Counted Cancelled, Neutrophils % (Manual) Cancelled, Band Neutrophils % Cancelled, Lymphocytes % (Manual) Cancelled, Monocytes % (Manual) Cancelled, Eosinophils % (Manual) Cancelled, Basophils % (Manual) Cancelled, Metamyelocytes% Cancelled, Myelocytes % Cancelled, Promyelocytes % Cancelled, Blast Cells % Cancelled, Plasma Cell % (Manual) Cancelled, Other Cells % Cancelled, Nucleated RBC % Cancelled, Nucleated RBCs/100 WBC Cancelled, Differential Comment Cancelled, Diff Path Review Cancelled, Hypersegmented Neuts Cancelled, Atypical Lymphocytes Cancelled, Reactive Lymphocytes Cancelled, Smudge Cells Cancelled, Toxic Granulation Cancelled, Toxic Vacuolation Cancelled, Dohle Bodies Cancelled, Aleksey Rods Cancelled, Platelet Estimate Cancelled, Plt Morphology Comment Cancelled, RBC Morphology Cancelled 01/10/25 03:20: RBC Morphology Cancelled, Polychromasia Cancelled, HypochromasiaCancelled, Basophilic Stippling Cancelled, Anisocytosis Cancelled, Microcytosis Cancelled, Macrocytosis Cancelled, Spherocytes Cancelled, Sickle Cells Cancelled, Target Cells Cancelled, Tear Drop Cells Cancelled, Ovalocytes Cancelled, Stomatocytes Cancelled, Castellon-Joes Bodies Cancelled, Paloma Cells Cancelled, Bite Cells Cancelled, Crenated Cell Cancelled, Acanthocytes (Spur) Cancelled, Rouleaux Cancelled, Schistocytes Cancelled, Sodium Cancelled, Potassium Cancelled, Chloride Cancelled, Carbon Dioxide Cancelled, Anion Gap Cancelled, BUN Cancelled, Creatinine Cancelled, Estim Creat Clear Calc Cancelled, Est GFR (MDRD) Non-Af Cancelled, BUN/Creatinine Ratio Cancelled, Glucose Cancelled, Calcium Cancelled, Phosphorus Cancelled, Magnesium Cancelled,Total Bilirubin Cancelled, AST Cancelled, ALT Cancelled, Alkaline Phosphatase Cancelled, Total Protein Cancelled, Albumin Cancelled, Globulin Cancelled, Albumin/Globulin Ratio Cancelled 01/10/25 03:55: WBC 9.6, RBC 2.53 L, Hgb 7.4 L, Hct 23.1 L, MCV 91.3, MCH 29.2, MCHC 32.0, RDW Std Deviation 60.1 H, RDW Coeff of Francis 18.7 H, Plt Count 110 L, MPV 12.3 H, Immature Gran % (Auto) 0.500, Neut % (Auto) 76.1 H, Lymph % (Auto) 8.8 L, [place] % (Auto) 8.2, Eos % (Auto) 5.9 H, Baso % (Auto) 0.5, Absolute Neuts (auto) 7.3, Absolute Lymphs (auto) 0.85, Nucleated RBC % 0, Sodium 129 L, Potassium 3.4, Chloride 101, Carbon Dioxide 13.1 L, Anion Gap 15, BUN 27 H, Creatinine 1.95 H, Estim Creat Clear Calc 45.71 L, Est GFR (MDRD) Non-Af 39 L, BUN/Creatinine Ratio 13.7, Glucose 247 H, Calcium 7.8, Phosphorus 3.5, Magnesium1.4 L, Total Bilirubin 1.57 H, AST 101 H, ALT 54 H, Alkaline Phosphatase 244 H, Total Protein 5.0 L, Albumin 2.4 L, Globulin 2.6, Albumin/Globulin Ratio 0.9 ABG Data ABG results: ABG 01/09/25 20:50 Specimen Type TRAMAINE Sample Site Not entered VBG pH 7.36 VBG pO2 49 H VBG HCO3 14 L VBG Total CO2 15 L VBG O2 Sat (Calc) 84 H VBG Base Excess -11 L POC Mix VBG pCO2 Pt Tmp 24.7 L O2 Delivery Device Not entered Radiography Diagnostic Testing: Radiology Impression Abdomen/Pelvis CT 01/09/25 10:31 IMPRESSION: Fractures of 10, specially T 11 and T 12 with questionable lytic process. Differential diagnostic considerations include neoplasm as well as other benign etiologies. Double-J stent in the left collecting system extending to the left bladder base. Kidney staghorn calculus. Cholelithiasis without evidence of cholecystitis. Ventral hernia containing fat and ascites. Cholelithiasis without cholecystitis Cirrhosis and small amount of ascites. Stigmata of portal venous hypertension. No liver masses identified. Reading [facility] Physical Exam Const alert, oriented x3 and no apparent distress General Appearance: cooperative HEENT normocephalic and head/scalp atraumatic Eyes PERRL, EOMs intact bilaterally and conjunctivae normal Neck supple General: trachea midline Chest inspection of chest normal Resp normal respiratory effort Auscultation: diminished lung sounds; Negative for rales, rhonchi or wheezes Cardio regular rate and regular rhythm GI soft to palpation and non-tender GI Narrative: Hernia present. Extremity no clubbing, cyanosis or edema Skin no rashes or lesions noted Neuro CN's II-XII intact bilaterally, moves all extremities and no focal motor deficits Psych Mood & Affect: flat affect Charges/Coding Visit Charges Inpatient E&M: 61170 Subs Hosp L3 01/10/25 0852 <Electronically signed by Bola Meraz DO> Cosigner Signature (if applicable): CC: ~ Signed [facility] Work Phone: 1(860) 788-363706-08-2025 Consult note Author Lupillo Robbins [facility] Note Date/Time January 09, 2025 8:03p m [facility] Medical Records Department [address] [place] [address] Consultation - Strategic Marketing Manager 01/09/25 1836 MR#: [id number] Acct: [id number] Name: FRANKLIN ARCHULETA Rep #:[id number] : 1965 59 From: Lupillo Robbins MD PCP: YG Pena Status:ADM I N Location: ICU CVICU20 1-1 HPI Consult Data Date of Consult: 01/09/25 HPI Narrative HPI Narrative: FRANKLIN ARCHULETA, is a 59 M with cirrhosis, ureteral stent, nephrolithiasis, h/o hepatic encephalopathy, h/o C diff colitis, h/o UTI, chronic back pain who was admitted for hypotension and recurrent sepsis. He was recently admitted here with UTI, ISABEL, and recurrent C diff. Improved with abx was discharged home on 01/05. He reports 2 days after discharge developing recurrent back and suprapubic pain. No fevers/chills, vomiting, diarrhea. On arrival here he was noted to be hypotensive with leukocytosis, lactic acidosis, and UA concerning for recurrent UTI. He was given 30 cc/kg sepsis bolus and started on empiric vanc/merrem. BP has currently improved, not requiring pressors. Pt feeling somewhat improved as well. ROS: 12-point ROS negative except as per HPI PFSH Medical History (Updated 01/09/25 @ 17:[address] Yaritza Leo DO) Chronic hyponatremia Weakness Diarrhea Sepsis Acidosis, lactic Acute hypotension [...] diarrh ea #60 tabs 09/02/24 11/28/24 Rx acetaminophen 500 mg tablet 1,000 mg PO [...] 11/21/24 11/28/24 History spironolactone 50 mg tablet 100 mg PO DAILY diuretic 0 11/21/24 11/28/24 History thiamine HCl (vitamin B1) 100 [...] solution (Constulose) L.acidophil,salivari-Bifido 1 cap PO TID pobiotic #120 caps 12/02/24 Unknown Rx bifidum-Strep thermoph 175 mg capsule potassium, sodium phosphates 280 1 packet PO BID elect rolytes #100 12/02/24 Unknown Rx mg-160 mg-250 mg oral powder packet ea cyclobenzaprine 10 mg tablet 10 mg PO QHS muscle relax er 01/02/25 Unknown History ferrous sulfate 325 mg (65 mg 325 mg PO QODAY suppleme nt 01/02/25 Unknown History iron) tablet (FeroSul) nadolol 20 mg tablet 20 mg PO DAILY bp 01/02/25 U nknown History insulin glargine-yfgn 100 unit/mL 20 unit (0.2 mL) sub cut DAILY #0 mL 01/05/25 Unknown Rx (3 mL) subcutaneous pen insulin glargine-yfgn 100 unit/mL 20 unit (0.2 mL) sub cut QHS #0 mL 01/05/25 Unknown Rx (3 mL) subcutaneous pen insulin lispro 100 unit/mL 10 unit (0.1 mL) subcut TID AC #0 mL 01/05/25 Unknown Rx subcutaneous pen (Humalog KwikPen (U-100) Insulin) insulin lispro 100 unit/mL See Protocol subcut ACHS #0 mL 01/05/25 Unknown Rx subcutaneous pen (Humalog KwikPen (U-100) Insulin) Allergy/AdvReac Type Severity Reaction Status Date / [...] never substance use type: does not use Objective Data Objective Data Vital Signs: Vital Signs Last response 3 Temperature 36.5 C L 01/09/25 17:00 Temperature Source Oral 01/09/25 17:00 Pulse Rate 71 01/09/25 18:00 Respiratory Rate 20 H 01/09/25 18:00 Respiratory Effort Normal, Non-Labored 01/09/25 18:00 Respiratory Depth Normal 01/09/25 18:00 Respiratory Pattern Normal 01/09/25 18:00 Blood Pressure 110/60 01/09/25 18:00 Blood Pressure Mean 76 01/09/25 18:00 Blood Pressure Source Monitor 01/09/25 18:00 Blood Pressure Position Semi-Fowlers 01/09/25 18:00 Blood Pressure Location Left Arm 01/09/25 18:00 Pulse Ox 98 01/09/25 18:00 Oxygen Delivery Method Room Air 01/09/25 18:00 I&O: I&O Last 24 Hours 3 01/08/25 01/09/25 01/09/25 23:59 11:59 23:59 Intake Total 3599.70 / 3599.70 Balance 3599.70 / 3599.70 I&O: Total Stay 3 01/09/25 10:09 thru 01/09/25 18:00 Intake Total 3599.70 Balance 3599.70 Current Meds Ordered / Administered: Current meds ordered / Administered 3 Generic Name Dose Route Start Last Admin Trade Name Freq PRN Reason Stop Dose Admin Acetaminophen 1,000 mg 01/09/25 15:46 Acetaminophen 500 Mg Tablet PO Q8 PRN fever or pain Albuterol Sulfate 2.5 mg 01/09/25 15:46 Albuterol 2.5 Mg/3 Ml Vial.Neb. INHALATION Q2H PRN PRN SOB &/OR WHEEZING Ascorbic Acid 500 mg 01/09/25 22:00 Ascorbic Acid 500 Mg Tablet PO BID KRYSTIN Atorvastatin Calcium 40 mg 01/10/25 10:00 Atorvastatin Calcium 40 Mg Tablet PO DAILY KRYSTIN Calcium/Vitamin D 1 tablet 01/10/25 10:00 Calcium Carb/Vitamin D 1 Tablet Tablet PO DAILY KRYSTIN Cyclobenzaprine HCl 10 mg 01/09/25 22:00 Cyclobenzaprine Hcl 10 Mg Tablet PO QHS KRYSTIN Ferrous Sulfate 325 mg 01/10/25 12:00 Ferrous Sulfate 325 Mg Tablet PO Q48@1200 KRYSTIN Folic Acid 1 mg 01/10/25 08:00 Folic Acid 1 Mg Tablet PO BREAKFAST KRYSTIN Guaifenesin 10 ml 01/09/25 15:46 Guaifenesin 10 Ml Udc (200mg/10ml) PO Q4H PRN PRN COUGH Heparin Sodium (Porcine) 5,000 unit 01/09/25 22:00 Heparin Injection (Vial) 5,000 Unit/Ml Vial SC Q8 KRYSTIN Sodium Chloride 250 mls @ 15 mls/hr 01/09/25 15:34 IV .[id number] PRN Saline Flush Sodium Chloride 250 mls @ 15 mls/hr 01/09/25 15:34 IV .[id number] PRN Additional IVPB Infusion Norepinephrine Bitartrate 8 mg 250 mls @ 9.375 mls/hr 01/09/25 15:46 01/09/2515:56 / Sodium Chloride CONT INF Not Given .[id number] [facility] Protocol 5 MCG/MIN Vancomycin IV-PHARMACY TO DOSE 500 mls @ 250 mls/hr 01/09/25 15:46 1 each/ Sodium Chloride IV PRN PRN Rx to Dose Protocol Meropenem 1 gm/ Sodium 120 mls @ 33 mls/hr 01/09/25 22:00 Chloride IV Q12 KRYSTIN Vancomycin HCl 1,000 mg in 200 mls @ 200 mls/hr 01/10/25 02:00 Vancomycin IV Q12H [facility] Insulin Glargine 20 unit 01/09/25 22:00 Insulin Glargine-Yfgn 100 Unit/Ml Pen SC QHS [facility] Insulin Glargine 20 unit 01/10/25 10:00 Insulin Glargine-Yfgn 100 Unit/Ml Pen SC DAILY [facility] Insulin Human Lispro 0 unit 01/09/25 16:00 01/09/25 16:27 Insulin Lispro 100 Unit/Ml Insuln.Pen SC Not Given ACHS [facility] Protocol Lactulose 10 gm 01/09/25 15:46 Lactulose 20 Gm/30 Ml Udc PO TID PRN constipation Magnesium Chloride 128 mg 01/10/25 10:00 Magnesium Chloride 64 Mg Delay Rel.Tablet PO DAILY [facility] Midodrine 10 mg 01/09/25 17:00 01/09/25 17:10 Midodrine Hcl 5 Mg Tablet PO 10 mg TIDCM [facility] Administration Ondansetron HCl 4 mg 01/09/25 15:46 Ondansetron 4 Mg/2 Ml Vial IV Q8H PRN PRN NAUSEA/VOMITING Pantoprazole Sodium 20 mg 01/10/25 10:00 Pantoprazole Sodium 20 Mg Tablet PO DAILY [facility] Potassium Phos/Sodium Phos 1 packet 01/09/25 22:00 Na Biphos/Potassium Phosphate Packet PO BID [facility] Rifaximin 550 mg 01/09/25 22:00 Rifaximin 550 Mg Tablet PO BID [facility] Sodium Bicarbonate 650 mg 01/09/25 22:00 Sodium Bicarbonate 650 Mg Tablet PO BID [facility] Sodium Chloride 10 - 40 ml 01/09/25 15:34 0.9% Saline Lock 10 Ml Syringe IV UD PRN SALINE FLUSH Thiamine HCl 100 mg 01/10/25 10:00 Thiamine Hydrochloride 100 Mg Tablet PO DAILY [facility] Vancomycin Protocol 1 lab 01/11/25 00:30 Vancomycin Trough/Random Due MC 01/11/25 02:30 DAILY [facility] Zinc Sulfate 50 mg 01/10/25 10:00 Zinc Sulfate 50 Mg Zinc (220 Mg) Oral Capsule PO DAILY [facility] Lab / Micro Data 01/09/25 10:40 01/09/25 17:35 Labs: Laboratory Results - last 24 hr 01/09/25 10:40: WBC 13.2 H, RBC 2.69 L, Hgb 7.9 L, Hct 24.3 L, MCV 90.3, MCH 29.4, MCHC 32.5, RDW Std Deviation 57.5 H, RDW Coeff of Francis 18.1 H, Plt Count 114 L, MPV 11.7, Immature Gran % (Auto) 0.900, Neut % (Auto) 80.6 H, Lymph % (Auto) 7.2 L, [place] % (Auto) 6.7, Eos % (Auto) 4.2, Baso % (Auto) 0.4, Absolute Neuts (auto) 10.6 H, Absolute Lymphs (auto) 0.95, Nucleated RBC % 0, Sodium 129 L, Potassium 3.6, Chloride 103, Carbon Dioxide 13.6 L, Anion Gap 13, BUN 24 H, Creatinine 1.77 H, Estim Creat Clear Calc 50.61, Est GFR (MDRD) Non-Af 44 L, BUN/Creatinine Ratio 13.4, Glucose 149 H, Lactic Acid 3.1 H*, Calcium 8.4, TotalBilirubin 1.15, AST 68 H, ALT 42, Alkaline Phosphatase 196 H, Total Creatine Kinase 34, Total Protein 5.3 L, Albumin 2.4 L, Globulin 2.9, Albumin/Globulin Ratio 0.8 L 01/09/25 13:28: Urine Color Red, Urine Clarity Turbid, Urine pH 6.0, Ur SpecificGravity 1.015, Urine Protein 500 H, Urine Glucose (UA) Normal, Urine Ketones 5 H, Urine Occult Blood 250 H, Urine Nitrite Negative, Urine Bilirubin 1 H, Urine Urobilinogen Normal, Ur Leukocyte Esterase 500 H, Urine RBC > 100 SEEN, Urine WBC 50-100 SEEN, Ur Squamous Epith Cells 0-5 SEEN, Urine Bacteria 0 SEEN, Urine Mucus 0 SEEN 01/09/25 15:35: MRSA (PCR) Negative 01/09/25 16:09: POC Glucose 99 01/09/25 17:35: Sodium 132 L, Potassium 3.7, Chloride 106, Carbon Dioxide 14.1 L, Anion Gap 11, BUN 25 H, Creatinine 1.78 H, Estim Creat Clear Calc 50.08, Est GFR (MDRD) Non-Af 44 L, BUN/Creatinine Ratio 13.8, Glucose 119 H, Lactic Acid 2.4 H*, Calcium 7.7, Vitamin D 25-Hydroxy 10.0 L Imaging Radiology Impression Abdomen/Pelvis CT 01/09/25 10:31 IMPRESSION: Fractures of 10, specially T 11 and T 12 with questionable lytic process. Differential diagnostic considerations include neoplasm as well as other benign etiologies. Double-J stent in the left collecting system extending to the left bladder base. Kidney staghorn calculus. Cholelithiasis without evidence of cholecystitis. Ventral hernia containing fat and ascites. Cholelithiasis without cholecystitis Cirrhosis and small amount of ascites. Stigmata of portal venous hypertension. No liver masses identified. Reading Location[facility] Assessment and Plan . Assessment and plan: Physical Exam: Gen - NAD, well-developed HEENT - MMM. Sclera anicteric Resp - CTAB. Breathing nonlabored CV - RRR. No m/g/r Abd - Soft, NT, ND Ext - No c/c/e. Skin - No rashes? Neuro - Grossly nonfocal. Slight drowsy but easily arousable, answering questions appropriately I have reviewed the pertinent vital sign, laboratory, and imaging data. ASSESSMENT: # Sepsis - possibly 2/2 recurrent UTI (though no bacteria noted on UA), ?SBP. Only small ascited noted on CT # Hypotension # Lactic acidosis # ISABEL # Hyponatremia # Anemia # Thrombocytopenia # h/o VTE - not on anticoagulation d/t recurrent anemia # Cirrhosis # Ureteral stent # Nephrolithiasis # Cholelithiasis - without cholecystitis on CT # h/o hepatic encephalopathy # h/o C diff colitis # h/o UTI # Chronic back pain PLAN: -Monitor BP closely in ICU, may need pressors if worsening. s/p 30 cc/kg sepsis bolus in ED -Empiric vanc/merrem. f/u Cx -Start bicarb gtt. Follow BMP closely. Check blood gas -Trend lactate -Monitor Cr, UOP -May need urology eval if worsening sepsis for possibility of infected stone -Cont rifaximin. Check ammonia -Follow CBC, monitor for bleeding Proph DVT/GI: SQ heparin, protonix Critical Care Time: 60 mins The entirety of this encounter was done via telemedicine using both audio and video. Consent was obtained. 01/09/252002 <Electronically signed by Lupillo Robbins MD> Cosigner Signature (if applicable): CC: YG Elias~ Signed [facility] Work Phone: 1(333) 394-371806-08-2025 Consult note Author Peter Carvajal [facility] Note Date/Time January 09, 2025 5:42p [facility] Medical Records Department [address] [place] [address] Pharmacokinetic/Renal -Consult 01/09/25 1602 MR#: [id number] Acct: [id number] Name: FRANKLIN ARCHULETA Rep #:[id number] : 1965 59 From: Peter Carvajal PCP: YG Pena Status:ADM I N Y Location: ICU CVICU20 1-1 Consult Antibiotic Management Pharmacy has been consulted to manage selected antibiotic: Vancomycin Type of Intervention Type of Consult: Follow-up Suspected Infection Suspected Infection: Other (EMPIRIC) Prior Doses of Antibiotics Prior Doses of Antibiotics Received/Current Regimen: Vancomycin 2000 mg IV x 1 give in ER 01/09/25 @ 1422 Labs Labs: Sodium 129 mmol/L (133-145) L 01/09/25 10:40 Potassium 3.6 mmol/L (3.3-5.1) 01/09/25 10:40 Chloride 103 mmol/L (98-108) 01/09/25 10:40 Carbon Dioxide 13.6 mmol/L (21.0-32.0) L 01/09/25 10:40 Anion Gap 13 (5-15) 01/09/25 10:40 BUN 24 mg/dL (4-19) H 01/09/25 10:40 Creatinine 1.77 mg/dL (0.70-1.20) H 01/09/25 10:40 Est GFR (MDRD) Non-Af 44 (>60) L 01/09/25 10:40 BUN/Creatinine Ratio 13.4 RATIO (10-20) 01/09/25 10:40 Glucose 149 mg/dL (70-99) H 01/09/25 10:40 Dosing Weight Weight used for dosin kg Estimated Creatinine Clearance Estimated Creatinine Clearance: ~ 51 Goal Trough Goal Trough: 15-20 mcg/mL Pharmacy Plan for Drug Dosing Pharmacy Plan for Drug Dosing: Vancomycin 2000 mg IV x 1 followed by 1000 mg Q12H Pharmacy Service will continue to monitor and adjust dosing as required. Follow-Up Labs Follow-Up Labs: Trough: Vancomycin Date/Time Labs Ordered Labs to be done on [date and time ordered]: 01/11/25 @ 0130 01/09/25 1603 <Electronically signed by Peter carranza> Date _ Peter Carvajal 01/09/25 1742 <Electronically signed by Yaritza Lucero O> Cosigner Signature (if applicable): Date Yaritza Leo DO CC: ~ Signed [facility] Work Phone: [phone]) 666-317306-08-2025 History and physical note Author Yaritza Leo [facility] Note Date/Time January 09, 2025 5:41p m [facility] Medical Records Department [address] [facility] [place] [address] H&P Exam - Hospitalist 01/09/25 1408 MR#: [id number] Acct: [id number] Name: FRANKLIN ARCHULETA Rep #:[id number] : 1965 59 From: Yaritza Leo DO PCP: Josy Elias, DIRECTOR INSTRUMENTATIONKayleigh Status:ADM I N Location: ICU CVICU 1 HPI - General General Date of Admission: 01/09/25 Date of Service: 01/09/25 Chief Complaint: Suprapubic abdominal pain HPI Narrative FRANKLIN ARCHULETA, is a 59 M who presented to the emergency department [facility] on 01/09/2025 due to back pain and suprapubic pain. Patient was recently discharged on 01/05/2025 and at that time was diagnosed with ISABEL, hypokalemia, and recurrent UTI. At that time he was treated with Levaquin. Patient also had finished treatment for recurrent C. difficile colitis. On presentation he stated he felt well at the time of discharge and about 2 days ago on 01/07/2025 he started having back pain which yesterday transitioned into concomitant suprapubic abdominal pain. Patient does have a complicated past medical history and currently resides at an [facility]. He denies any fever or chills. He does complain of some mild nausea but no vomiting. He typically ambulates with a walker at baseline. He rated his Supralip pubic abdominal pain at about 5 out of 10 and in the emergency department declined anything for pain. Vital signs on presentation showed a temperature of 98, heart rate 72, respiratory 16, blood pressure was 93/56 with a repeat of 89/59 and pulse ox csu410% on room air. CBC showed a leukocytosis with a white count of 13.2 and a left shift with an 80.6% neutrophilia which is new from the time of his discharge on 01/05/2025. Chemistry panel shows chronic hyponatremia with a stablesodium. Serum bicarb was down to 13.6. His BUN was elevated at 24 and his serum creatinine was 1.77. Baseline serum creatinine appears to be 0.8-1.1. Serum glucose was 149, lactic acid was 3.1. AST was slightly elevated at 68 buthe does appear to have a chronic mild elevation probably related to his liver disease. CK was normal at 34. His urine was turbid appearing and had occult blood, ketones, leuk esterase, white cells but no bacteria were noted at this time. Patient met sepsis criteria and was a sepsis alert at the time of admission. Wedid agree with sepsis and he was treated accordingly per protocol. Patient met step 3 criteria with elevated lactic acidosis, hypotension, and decreased urine output with ISABEL. Cultures were obtained, antibiotics were started, and he was treated with 30 cc/kg bolus. [facility] Medical History (Updated 01/09/25 @ 17:[address] Yaritza Leo, DO) Chronic hyponatremia Weakness Diarrhea Sepsis Acidosis, lactic Acute hypotension [...] diarrh ea #60 tabs 09/02/24 11/28/24 Rx acetaminophen 500 mg tablet 1,000 mg PO [...] 11/21/24 11/28/24 History spironolactone 50 mg tablet 100 mg PO DAILY diuretic 0 11/21/24 11/28/24 History thiamine HCl (vitamin B1) 100 [...] solution (Constulose) L.acidophil,salivari-Bifido 1 cap PO TID pobiotic #120 caps 12/02/24 Unknown Rx bifidum-Strep thermoph 175 mg capsule potassium, sodium phosphates 280 1 packet PO BID elect rolytes #100 12/02/24 Unknown Rx mg-160 mg-250 mg oral powder packet ea cyclobenzaprine 10 mg tablet 10 mg PO QHS muscle relax er 01/02/25 Unknown History ferrous sulfate 325 mg (65 mg 325 mg PO QODAY suppleme nt 01/02/25 Unknown History iron) tablet (FeroSul) nadolol 20 mg tablet 20 mg PO DAILY bp 01/02/25 U nknown History insulin glargine-yfgn 100 unit/mL 20 unit (0.2 mL) sub cut DAILY #0 mL 01/05/25 Unknown Rx (3 mL) subcutaneous pen insulin glargine-yfgn 100 unit/mL 20 unit (0.2 mL) sub cut QHS #0 mL 01/05/25 Unknown Rx (3 mL) subcutaneous pen insulin lispro 100 unit/mL 10 unit (0.1 mL) subcut TID AC #0 mL 01/05/25 Unknown Rx subcutaneous pen (Humalog KwikPen (U-100) Insulin) insulin lispro 100 unit/mL See Protocol subcut ACHS #0 mL 01/05/25 Unknown Rx subcutaneous pen (Humalog KwikPen (U-100) Insulin) Allergy/AdvReac Type Severity Reaction Status Date / [...] does not use ROS Constitutional Constitutional: Reports fatigue, malaise and weakness; Denies anorexia, change in weight, chills, fever(s), night sweats or other Eyes Eyes: Denies blurry vision, change in eye color, change in vision, discharge from eye(s), double vision, erythema, eye pain, loss of vision or other ENT HEENT: Denies abnormal hearing, dysphagia, ear pain, epistaxis, headache(s), hearing loss, nasal congestion, nasal discharge, post nasal drip, sinus pressure, sore throat or other Cardiovascular Cardiovascular: Denies chest pain, claudication, dyspnea on exertion, edema, lightheadedness, orthopnea, palpitations, paroxysmal nocturnal dyspnea, rapid heart rate, syncope or other Respiratory/Chest Respiratory/Chest: Denies cough, dyspnea, excessive phlegm production, hemoptysis, productive cough, shortness of breath at rest, shortness of breath with exertion, wheezing or other Gastrointestinal Gastrointestinal: Reports abdominal pain, nausea and other Details: Suprapubic pain ; Denies vomiting Genitourinary Genitourinary: Reports other Details: Decreased urine output ; Denies burning urination, difficulty urinating, dysuria, hematuria, nocturia, urinary frequency, urinary hesitancy, urinary incontinence or urinary urgency Musculoskeletal Musculoskeletal: Denies arthralgias, back pain, joint pain, joint stiffness, joint swelling, myalgias, neck pain or other Neurologic Neurologic: Denies abnormal gait, abnormal speech, confusion, disequilibrium, dizziness, focal weakness, headache(s), numbness, paresthesias, seizure-like activity, seizures, syncope, tingling, tremor(s) or other Psychiatric Psychiatric: Reports anxiety and depression; Denies homicidal ideation, suicidalideation or other Endocrine Endocrinology: Denies change in body appearance, cold intolerance, excessive sweating, heat intolerance, polydipsia, polyuria or other Hematologic/Lymphatic Hematologic/Lymphatic: Denies anemia, easy bleeding, easy bruising, lymphadenopathy or other Allergic/Immunologic Allergic/Immunologic: Denies rhinitis, hives, eczemia, asthma or other Vital Signs Vital Signs Vital Signs: 01/09/25 10:10 01/09/25 10:21 01/09/25 10:30 Temperature 98 F Temperature Source Oral Pulse Rate 72 71 71 Respiratory Rate 16 16 16 Blood Pressure 93/56 L 89/59 L Blood Pressure Mean 68 70 Pulse Ox 100 100 99 Oxygen Delivery Method Room Air 01/09/25 10:45 01/09/25 11:00 01/09/25 11:15 Temperature Temperature Source Pulse Rate 69 67 70 Respiratory Rate 20 H 16 20 H Blood Pressure Blood Pressure Mean Pulse Ox 100 100 99 Oxygen Delivery Method 01/09/25 11:30 01/09/25 11:45 01/09/25 12:00 Temperature Temperature Source Pulse Rate 71 73 67 Respiratory Rate 22 H 20 H 14 Blood Pressure Blood Pressure Mean Pulse Ox 100 100 100 Oxygen Delivery Method 01/09/25 12:15 01/09/25 12:30 01/09/25 12:41 Temperature Temperature Source Pulse Rate Respiratory Rate Blood Pressure 89/54 L Blood Pressure Mean 66 Pulse Ox 100 100 100 Oxygen Delivery Method 01/09/25 12:43 01/09/25 12:45 01/09/25 13:03 Temperature Temperature Source Pulse Rate 68 69 66 Respiratory Rate 19 H 16 16 Blood Pressure 92/52 L 86/54 L 88/53 L Blood Pressure Mean 64 64 66 Pulse Ox 100 100 100 Oxygen Delivery Method 01/09/25 13:04 01/09/25 13:15 01/09/25 13:30 Temperature 98 F Temperature Source Oral Pulse Rate 66 64 63 Respiratory Rate 19 H 16 17 Blood Pressure 88/53 L 87/54 L 85/65 L Blood Pressure Mean 64 64 71 Pulse Ox 100 100 Oxygen Delivery Method Room Air 01/09/25 13:45 01/09/25 14:00 01/09/25 14:01 Temperature Temperature Source Pulse Rate 63 69 Respiratory Rate 15 16 Blood Pressure 95/56 L 107/59 L Blood Pressure Mean 69 73 Pulse Ox 100 100 Oxygen Delivery Method Weight Weight: 90.6 kg Body Mass Index (BMI) 29.5 Physical Exam Const alert, oriented x3 and no apparent distress; Negative for average body habitus, healthy appearing or well nourished Constitutional Narrative: Overweight, somewhat disheveled appearing, middle-aged, white male, appears older than stated age, lying in left side-lying in position, does not appear uncomfortable at this time but does complain of some lower abdominal painbut declines pain medication, appears ill but not toxic General Appearance: cooperative HEENT normocephalic, head/scalp atraumatic and hearing grossly normal bilaterally HEENT Narrative: Mucous membranes appear somewhat dry, dentition is poor, Mallampati is 2, no thrush Eyes Negative for conjunctivae normal Eyes Narrative: Conjunctival pallor present bilaterally, no scleral icterus Neck supple Neck Narrative: Trachea midline, no thyroid enlargement Resp normal respiratory effort, no retractions, no use of accessory muscles and clearto auscultation bilaterally Resp Narrative: Diffusely diminished but clear Auscultation: Negative for rales, rhonchi or wheezes Cardio regular rate, regular rhythm, S1 normal heart sound, S2 normal heart sound, no murmurs and no gallops GI normal to inspection, nondistended, normoactive bowel sounds and soft to palpation; Negative for non-tender GI Narrative: Suprapubic tenderness, umbilical hernia noted Palpation: hernia Extremity no clubbing, cyanosis or edema Extremity Narrative: Pedal and radial pulses are 2+ Skin no jaundice, no petechiae and no mottling Neuro oriented x3 and moves all extremities Speech: speech normal Psych Negative for affect normal Psych Narrative: Affect is flattened mood seems depressed Results Lab / Micro Data 01/09/25 10:40 01/09/25 10:40 Labs: Laboratory Results - last 24 hr 01/09/25 10:40: WBC 13.2 H, RBC 2.69 L, Hgb 7.9 L, Hct 24.3 L, MCV 90.3, MCH 29.4, MCHC 32.5, RDW Std Deviation 57.5 H, RDW Coeff of Francis 18.1 H, Plt Count 114 L, MPV 11.7, Immature Gran % (Auto) 0.900, Neut % (Auto) 80.6 H, Lymph % (Auto) 7.2 L, [place] % (Auto) 6.7, Eos % (Auto) 4.2, Baso % (Auto) 0.4, Absolute Neuts (auto) 10.6 H, Absolute Lymphs (auto) 0.95, Nucleated RBC % 0, Sodium 129 L, Potassium 3.6, Chloride 103, Carbon Dioxide 13.6 L, Anion Gap 13, BUN 24 H, Creatinine 1.77 H, Estim Creat Clear Calc 50.61, Est GFR (MDRD) Non-Af 44 L, BUN/Creatinine Ratio 13.4, Glucose 149 H, Lactic Acid 3.1 H*, Calcium 8.4, TotalBilirubin 1.15, AST 68 H, ALT 42, Alkaline Phosphatase 196 H, Total Protein 5.3 L, Albumin 2.4 L, Globulin 2.9, Albumin/Globulin Ratio 0.8 L 01/09/25 13:28: Urine Color Red, Urine Clarity Turbid, Urine pH 6.0, Ur SpecificGravity 1.015, Urine Protein 500 H, Urine Glucose (UA) Normal, Urine Ketones 5 H, Urine Occult Blood 250 H, Urine Nitrite Negative, Urine Bilirubin 1 H, Urine Urobilinogen Normal, Ur Leukocyte Esterase 500 H, Urine RBC > 100 SEEN, Urine WBC 50-100 SEEN, Ur Squamous Epith Cells 0-5 SEEN, Urine Bacteria 0 SEEN, Urine Mucus 0 SEEN Imaging Radiology Impression Abdomen/Pelvis CT 01/09/25 10:31 IMPRESSION: Fractures of 10, specially T 11 and T 12 with questionable lytic process. Differential diagnostic considerations include neoplasm as well as other benign etiologies. Double-J stent in the left collecting system extending to the left bladder base. Kidney staghorn calculus. Cholelithiasis without evidence of cholecystitis. Ventral hernia containing fat and ascites. Cholelithiasis without cholecystitis Cirrhosis and small amount of ascites. Stigmata of portal venous hypertension. No liver masses identified. Reading Location: [facility] Assessment & Plan Assessment/Plan (1) Sepsis: (2) ISABEL (acute kidney injury): (3) Abnormal urinalysis: (4) Lactic acidosis: (5) Metabolic acidosis: (6) Leukocytosis: PLAN: Plan Sepsis secondary to suspected urinary tract infection - Urinalysis is abnormal - Patient hypotensive with an elevated lactic acid and elevated serum creatinineon presentation - Hold home antihypertensives and diuretics - Fluid bolus given at 30 cc/kg of body weight and check for response - Will cover broadly since recent hospitalization with vancomycin and meropenem - Cultures are pending - Consult critical care medicine - Patient does have known history of left-sided staghorn calculi and stenting - Follows with Dr. Rascon - May need urological referral depending on cultures Leukocytosis - Suspect to the above - Was not present at the time of discharge - Trend Lactic acidosis - Secondary to sepsis and poor perfusion - Repeat per sepsis protocol - Thus far patient has had fluid responsive hypotension and I do anticipate resolution ISABEL secondary to ATN with sepsis - Baseline serum creatinine is between 0.8 and 1.1 - Current serum creatinine is 1.77 with decreased urine output - Should resolve with improved perfusion - Repeat lab in a.m. - Avoid nephrotoxins - Hold diuretics Acute on chronic metabolic acidosis - Continue home sodium and bicarbonate - Repeat BMP at 1730 to reassess serum bicarb for stability - Trend Abdominal pain - Suspect related to UTI - Should improve if UTI related - CT does show umbilical hernia and bilateral inguinal hernias however these do not appear to be problematic per ED discussion with general surgery Compression fractures T8 10, 11, and 12 - Concern of lytic process - Will check vitamin D level - Will need outpatient follow-up if pain can be well-controlled for further workup Chronic anemia - Hemoglobin is stable - Will trend - No signs of GI bleeding BOYER liver cirrhosis with history of varices and hepatic encephalopathy - Continue home rifaximin - Continue home lactulose - Hold home Aldactone and nadolol while being treated for hypotension History of extensive venous thrombosis - Currently not on anticoagulation due to acute blood loss anemia with hematuria - No plans to reinitiate at this point Acute on chronic hypotension - Continue home midodrine - Hold nadolol and diuretics - Once blood pressure stabilizes may restart GERD - Continue on PPI DM-2 - Hold home oral agents - Continue home basal insulin and SSI - Hold home scheduled lispro for now until p.o. intake is improved - Accu-Cheks as ordered - Recent hemoglobin A1c was 7.2 however this is probably underestimated due to his anemia at baseline Hyperlipidemia - Continue home atorvastatin DVT prophylaxis - Heparin 3 times daily CODE STATUS - Full code Sepsis Attestation Sepsis Alert: Yes Date exam was performed: 01/09/25 Time exam was performed: 14:30 Possible Source of Sepsis: Genitourinary Sepsis Organ Dysfunction Criteria Present: SBP < 90 mmHg or MAP < 65 mmHg, UOP <0.5 mL/kg/hour for 2 consecutive hours and Lactic Acid > 2 mmol/L Fluid Resuscitation Fluid resuscitation indicated?: Yes Fluid Resuscitation ordered: 30 ml/kg fluid bolus ordered Amount of fluid ordered: 2,500 Sepsis Note Date exam was performed: 01/09/25 Time exam was performed: 16:38 Sepsis Attestation: Sepsis re-evaluation was performed Response to fluids: Fluid responsive hypotension (Blood pressures currently 102/60) Charges/Coding Visit Charges Inpatient E&M: 25468 Init Hosp L3 01/09/25 1741 <Electronically signed by Yaritza Leo DO> Cosigner Signature (if applicable): CC: DIRECTOR INSTRUMENTATION-C Josy Elias; Dr. Yaritza Leo DO~ Signed [facility] Work Phone: 1(243) [phone] Discharge summary Author [facility] Note Date/Time January 09, 2025 4:26p m [facility] Medical Records Department [address] [place] [address] Emergency Department Summary 01/09/25 MR#: [id number] Acct: [id number] Name: FRANKLIN ARCHULETA Rep #:[id number] : 1965 59 From: Breann Mendez DO PCP: YG Pena Status:ADM I N Location: ICU CVICU20 1-1 HPI HPI - GI History of Present Illness Chief Complaint: Abd Pain Detail of Chief Complaint: Abdominal pain Informant: patient Narrative Narrative: Patient presents to the emergency department with complaint of abdominal pain and back pain that started few days ago. Had some pain in his groin today on the left side. Denies any injury. He said no falls. He denies fever. He has had some mild nausea but no vomiting. He denies urinary symptoms. Patient is from a longterm and normally ambulates with a walker. Patient has history of cirrhosis and history of diabetes as well as high cholesterol. Patient has had prior paracentesis. Currently rates his pain about a 5 out of 10. He does not want thing for pain currently. [facility] Medical History Weakness Diarrhea Sepsis Acidosis, lactic [...] diarrh ea #60 tabs 09/02/24 11/28/24 Rx acetaminophen 500 mg tablet 1,000 mg PO [...] 11/21/24 11/28/24 History spironolactone 50 mg tablet 100 mg PO DAILY diuretic 0 11/21/24 11/28/24 History thiamine HCl (vitamin B1) 100 [...] solution (Constulose) L.acidophil,salivari-Bifido 1 cap PO TID pobiotic #120 caps 12/02/24 Unknown Rx bifidum-Strep thermoph 175 mg capsule potassium, sodium phosphates 280 1 packet PO BID elect rolytes #100 12/02/24 Unknown Rx mg-160 mg-250 mg oral powder packet ea cyclobenzaprine 10 mg tablet 10 mg PO QHS muscle relax er 01/02/25 Unknown History ferrous sulfate 325 mg (65 mg 325 mg PO QODAY suppleme nt 01/02/25 Unknown History iron) tablet (FeroSul) nadolol 20 mg tablet 20 mg PO DAILY bp 01/02/25 U nknown History insulin glargine-yfgn 100 unit/mL 20 unit (0.2 mL) sub cut DAILY #0 mL 01/05/25 Unknown Rx (3 mL) subcutaneous pen insulin glargine-yfgn 100 unit/mL 20 unit (0.2 mL) sub cut QHS #0 mL 01/05/25 Unknown Rx (3 mL) subcutaneous pen insulin lispro 100 unit/mL 10 unit (0.1 mL) subcut TID AC #0 mL 01/05/25 Unknown Rx subcutaneous pen (Humalog KwikPen (U-100) Insulin) insulin lispro 100 unit/mL See Protocol subcut ACHS #0 mL 01/05/25 Unknown Rx subcutaneous pen (Humalog KwikPen (U-100) Insulin) Allergy/AdvReac Type Severity Reaction Status Date / [...] type: does not use ROS ROS ED Review of Systems ROS Unobtainable: other Constitutional Constitutional ED: Reports lethargy; Denies chills, fever(s), sweats or weight loss Eyes Eyes: Denies blurry vision, change in vision or diplopia ENT ENT ED: Denies rhinorrhea or sore throat Cardiovascular Cardiovascular: Denies chest pain, orthopnea or racing heartbeat Respiratory/Chest Respiratory/Chest: Denies cough, dyspnea, dyspnea on exertion, orthopnea or sputum Gastrointestinal Gastrointestinal: Reports abdominal pain and nausea; Denies diarrhea or vomiting Genitourinary Genitourinary ED: Denies dysuria, hematuria or urinary frequency Musculoskeletal Musculoskeletal: Denies arthralgias, back pain, myalgias or neck pain Integumentary Denies abscess, Abrasions or rash Neurologic Neurologic: Denies headache(s) or weakness Psychiatric Psychiatric: Denies anxiety, depression or suicidal thoughts Endocrine Endocrinology: Denies polydipsia, polyphagia or polyuria Hematologic/Lymphatic Hematologic/Lymphatic: Denies easy bleeding, easy bruising or lymphadenopathy Allergic/Immunologic Allergic/Immunologic ED: Denies mouth swelling, tongue swelling or urticaria EXAM Physical Exam Const Vital Signs: 01/09/25 10:10 01/09/25 10:21 01/09/25 10:30 Temperature 98 F Temperature Source Oral Pulse Rate 72 71 71 Respiratory Rate 16 16 16 Blood Pressure 93/56 L 89/59 L Blood Pressure Mean 68 70 Pulse Ox 100 100 99 Oxygen Delivery Method Room Air 01/09/25 10:45 01/09/25 11:00 01/09/25 11:15 Temperature Temperature Source Pulse Rate 69 67 70 Respiratory Rate 20 H 16 20 H Blood Pressure Blood Pressure Mean Pulse Ox 100 100 99 Oxygen Delivery Method 01/09/25 11:30 01/09/25 11:45 01/09/25 12:00 Temperature Temperature Source Pulse Rate 71 73 67 Respiratory Rate 22 H 20 H 14 Blood Pressure Blood Pressure Mean Pulse Ox 100 100 100 Oxygen Delivery Method 01/09/25 12:15 01/09/25 12:30 01/09/25 12:41 Temperature Temperature Source Pulse Rate Respiratory Rate Blood Pressure 89/54 L Blood Pressure Mean 66 Pulse Ox 100 100 100 Oxygen Delivery Method 01/09/25 12:43 01/09/25 12:45 01/09/25 13:03 Temperature Temperature Source Pulse Rate 68 69 66 Respiratory Rate 19 H 16 16 Blood Pressure 92/52 L 86/54 L 88/53 L Blood Pressure Mean 64 64 66 Pulse Ox 100 100 100 Oxygen Delivery Method 01/09/25 13:04 01/09/25 13:15 01/09/25 13:30 Temperature 98 F Temperature Source Oral Pulse Rate 66 64 63 Respiratory Rate 19 H 16 17 Blood Pressure 88/53 L 87/54 L 85/65 L Blood Pressure Mean 64 64 71 Pulse Ox 100 100 Oxygen Delivery Method Room Air 01/09/25 13:45 01/09/25 14:00 01/09/25 14:01 Temperature Temperature Source Pulse Rate 63 69 Respiratory Rate 15 16 Blood Pressure 95/56 L 107/59 L Blood Pressure Mean 69 73 Pulse Ox 100 100 Oxygen Delivery Method Positive well nourished and well developed General Appearance ED: well developed and NAD HEENT Reports TM's clear and moist mucous membranes normocephalic and atraumatic; Negative for trauma or tenderness Tympanic Membrane ED: Yes TM's clear Eyes PERRL and EOMs intact bilaterally General Eye ED: Negative for pale conjunctiva or scleral icterus Neck no lymphadenopathy, supple and no JVD General: Negative for tenderness Chest Wall inspection of chest normal and palpation of chest normal Chest: Negative for tenderness Resp normal respiratory effort and clear to auscultation bilaterally Effort and Inspection: Negative for respiratory distress or pain with movement Auscultation: Negative for rhonchi, wheezes or diminished lung sounds Cardio regular rate, regular rhythm, S1 normal heart sound, S2 normal heart sound and no murmurs Peripheral Pulses: pulses 2+ throughout GI normal to inspection, nondistended, normoactive bowel sounds, soft to palpation,non-distended and no masses GI Narrative: Mild tenderness over the left lower quadrant and left suprapubic region. No tenderness in the groin on exam. No masses in the groin. Patient does not havea fluid wave. Back/Spine no CVA tenderness and no thoracic nor lumbar tenderness Extremity normal to inspection General Extremety ED: Negative for edema General Extremity: Negative for edema Neuro oriented x3, CN's II-XII intact bilaterally, no sensory deficits noted and gait normal Sensorium / Orientation: awake, alert, oriented to person, oriented to place andoriented to time Motor Exam: strength 5/5 throughout and strength abnormal Psych mental status grossly normal Skin no rashes or lesions noted and no wounds MDM MDM MDM Narrative Medical decision making narrative: Patient presents the emergency department not feeling well had some pain in his low back without trauma. Complains of some pain in left groin. He has had somenausea. Patient thinks maybe he needs to have his abdomen tapped again as he has had paracentesis in the past. He had a history of UTI and history of cirrhosis. IV line established on arrival. Blood cultures ordered. CBC with differential obtained showed an elevated white count of 13.2 with hemoglobin 7.9and platelet count of 114,000. Chemistries unremarkable. BUN was 24 and creatinine 1.77. AST was 68 and ALT 42 with an alk phos of 196. Urinalysis positive for UTI. Blood cultures ordered and urine culture sent. He was started initially empirically on IV Zosyn and Vanco. He was given normal salinefluid bolus 30 cc/kg. Concern for sepsis. Patient blood pressure did respond to fluid bolus and latest systolic about 107. Patient also normally runs a low blood pressure and is on midodrine. CT scan of the abdomen pelvis showed compression fractures of T10-11 and 12 and concern for lytic process. Patient also noted to have cholelithiasis and evidence for cirrhosis with small amount of ascites. Case discussed with hospitalist will evaluate patient for admissionto the ICU. Lab Data Attestation: I reviewed the patient's lab results. Labs: Laboratory Results - last 24 hr 01/09/25 01/09/25 10:40 13:28 WBC 13.2 H RBC 2.69 L Hgb 7.9 L Hct 24.3 L MCV 90.3 MCH 29.4 MCHC 32.5 RDW Std Deviation 57.5 H RDW Coeff of Francis 18.1 H Plt Count 114 L MPV 11.7 Immature Gran % (Auto) 0.900 Neut % (Auto) 80.6 H Lymph % (Auto) 7.2 L [place] % (Auto) 6.7 Eos % (Auto) 4.2 Baso % (Auto) 0.4 Absolute Neuts (auto) 10.6 H Absolute Lymphs (auto) 0.95 Nucleated RBC % 0 Sodium 129 L Potassium 3.6 Chloride 103 Carbon Dioxide 13.6 L Anion Gap 13 BUN 24 H Creatinine 1.77 H Estim Creat Clear Calc 50.61 Est GFR (MDRD) Non-Af 44 L BUN/Creatinine Ratio 13.4 Glucose 149 H Lactic Acid 3.1 H* Calcium 8.4 Total Bilirubin 1.15 AST 68 H ALT 42 Alkaline Phosphatase 196 H Total Protein 5.3 L Albumin 2.4 L Globulin 2.9 Albumin/Globulin Ratio 0.8 L Urine Color Red Urine Clarity Turbid Urine pH 6.0 Ur Specific [place] 1.015 Urine Protein 500 H Urine Glucose (UA) Normal Urine Ketones 5 H Urine Occult Blood 250 H Urine Nitrite Negative Urine Bilirubin 1 H Urine Urobilinogen Normal Ur Leukocyte Esterase 500 H Urine RBC > 100 SEEN Urine WBC 50-100 SEEN Ur Squamous Epith Cells 0-5 SEEN Urine Bacteria 0 SEEN Urine Mucus 0 SEEN Radiography Diagnostic Testing: Clinical Impression(s) from Imaging Studies Abdomen/Pelvis CT 01/09/25 10:31 IMPRESSION: Fractures of 10, specially T 11 and T 12 with questionable lytic process. Differential diagnostic considerations include neoplasm as well as other benign etiologies. Double-J stent in the left collecting system extending to the left bladder base. Kidney staghorn calculus. Cholelithiasis without evidence of cholecystitis. Ventral hernia containing fat and ascites. Cholelithiasis without cholecystitis Cirrhosis and small amount of ascites. Stigmata of portal venous hypertension. No liver masses identified. Reading Location: [facility] Critical Care Time Critical care time (excluding procedures): 30-74 minutes, Including time spent:,Discussing w/Patient &/or Family/Director Sales And Trade Marketing, Discussing w/Consultants, ArrangingAdmission or Transfer, Performing Direct Patient Care at Bedside and - (30 minutes) Discharge Plan Triage Chief Complaint: Abd Pain ED Provider: Breann Mendez Dx/Rx/DC Orders Clinical Impression: Sepsis, Acute UTI, ISABEL (acute kidney injury), Compression fracture of thoracic spine, non-traumatic Prescriptions: No Action Xifaxan 550 mg Tablet 550 mg PO BID Qty: 60 0RF cyclobenzaprine 10 mg tablet 10 mg PO QHS ferrous sulfate [FeroSul] 325 mg (65 mg iron) tablet 325 mg PO QODAY nadolol 20 mg tablet 20 mg PO DAILY insulin lispro [Humalog KwikPen Insulin] 100 unit/mL [...] 20 unit subcut DAILY Qty: 0 0RF folic acid 1 mg tablet 1 mg [...] 1 packet PO BID Qty: 100 0RF Primary Care Provider: Josy Elias Referrals: Josy Elias DIRECTOR INSTRUMENTATION-C [Primary Care Provider] - Print Language: Marshallese Disposition Disposition: Acute Care Hospital [facility] What to do if you have Problems For any increased pain, shortness of breath, bleeding, nausea or vomiting, chestpain, or any unexpected problems, contact your Primary Care Provider. Call [facility] ([phone]) or report to the closest Emergency Room. Call 911 if necessary. 01/09/25 1626 <Electronically signed by Breann Mendez DO> Cosigner Signature (if applicable): CC: DIRECTOR INSTRUMENTATION-C Josy Elias ~ Signed [facility] Work Phone: 1(584) 813-796506-08-2025 Radiology Diagnostic study [facility]06-04-2025 Consult note Author Kourtney Reece [facility] Note Date/Time January 05, 2025 5:01p [facility] Medical Records Department [address] [place] [address] Counseling Note - Pharmacy 01/05/25 1447 MR#: [id number] Acct: [id number] Name: GEREMIASFRANKLIN CARMELA Rep #:[id number] : 1965 59 From: Kourtney Reece PCP: YG Pena Status:ADM I N Y Location: [place] [address] Pharmacy [place] Med Reconciliation Pharmacy Service has performed discharge [...] solution (Constulose) 15 ml PO TID PRN [id number]/27/25 L.acidophil,salivari-Bifido bifidum-Strep thermoph 175 mg capsule 1 [...] Protocol subcut ACHS #0 mL 01/05/25 01/05/25 2917 <Electronically signed by Kourtney Reece> Date _ Kourtney Ferguson Signature (if applicable): Date CC: ~ Signed [facility] Work Phone: 1(373) 145-831106-04-2025 Discharge summary Author Hill Acuña [facility] Note Date/Time January 05, 2025 2:07p [facility] Medical Records Department [address] [place] [address] Discharge Summary 01/05/25 1404 MR#: [id number] Acct: [id number] Name: FRANKLIN ARCHULETA Rep #:[id number] : 1965 59 From: Hill Acuña MD PCP: YG Pena Status:ADM I N Location: [place] [address] Providers Date of Admission: 01/02/25 Date of [...] Secondary to multiple medical comorbidities. Transfer to senior care facility had been recommended to patient during previous hospitalization he did decline. I had a discussion with patient he is amenable to entertaining the idea of going to senior care facility. Subsequently requested for PT OT eval and child welfare social worker to assist with discharge planning ? 01/03/2025; plan is to discuss with case management regarding disposition ? 01/05/2025; awaiting insurance pre-CERT prior to transfer to senior care facility ? Patient was discharged to senior care facility once insurance. 2. Severe hypokalemia ? [...] solution (Constulose) 15 ml PO TID PRN [id number]/27/25 L.acidophil,salivari-Bifido bifidum-Strep thermoph 175 mg capsule 1 [...] (Auto) 69.1, Lymph % (Auto) 13.4 L, [place] % (Auto) 11.6 H, Eos % (Auto) [...] in before D/C Order can be placed): Snf Facility Charges/Coding Visit Charges Inpatient E&M: 09246 Disch Hosp >30min 01/05/25 1407 <Electronically signed by Hill Acuña MD> Cosigner Signature (if applicable): CC: YG Elias; Dr. Hill Acuña MD~ Signed [facility] Work Phone: 1(801) 188-839006-04-2025 Discharge summary Author Hill cAuña [facility] Note Date/Time January 05, 2025 2:04p m [facility] Medical Records Department [address] [place] [address] Transfer to [facility] MR#: [id number] Acct: [id number] Name: FRANKLIN ARCHULETA Rep #:[id number] : 1965 59 From: Hill Acuña MD PCP: YG Pena Status:ADM I N Certification of patient admission REQUIRED AT TIME OF ADMISSION. I CERTIFY THAT POST-HOSPITAL F SERVICES ARE REQUIRED TO BE GIVEN ON AN IN-PATIENT BASIS BECAUSE OF THE ABOVE NAMED PATIENT'S NEED FOR GROUP HOME CARE ON A CONTINUING BASIS FOR THE CONDITION(S) FOR WHICH HE/SHE WAS RECEIVING IN-PATIENT HOSPITAL SERVICES PRIOR TO HIS/HER TRANSFER TO [facility]. 01/05/25 1404<Electronically signed by Hill Acuña MD> [...] Secondary to multiple medical comorbidities. Transfer to senior care facility had been recommended to patient during previous hospitalization he did decline. I had a discussion with patient he is amenable to entertaining the idea of going to senior care facility. Subsequently requested for PT OT eval and child welfare social worker to assist with discharge planning ? 01/03/2025; plan is to discuss with case management regarding disposition ? 01/05/2025; awaiting insurance pre-CERT prior to transfer to senior care facility 2. Severe hypokalemia ? Patient potassium [...] in before D/C Order can be placed): Snf Facility 01/05/25 1404 <Electronically signed by Hill Acuña MD> Cosigner Signature (if applicable): CC: YG Elias; Dr. Buster Fuchs MD ~ [facility] Work Phone: 1([phone]) 288-118706-04-2025 [facility]06-04-2025 Progress note Author Hill [facility] Note Date/Time January 05, 2025 11:01 am [facility] Medical Records Department [address] [place] [address] Progress Note - Hospitalist 01/05/25 0737 MR#: [id number] Acct: [id number] Name: FRANKLIN ARCHULETA Rep #:[id number] : 1965 59 From: Hill Acuña MD PCP: YG Pena Status:ADM I N Location: [place] [address] Reason for Visit Reason for Visit: Diagnoses Acute kidney failure, unspecified (01/02/25) Unspecified fall, initial encounter (01/02/25) Subjective Subjective Patient seen blood glucose control not optimal further adjustment made to patient insulin regimen. Patient awaiting insurance precertification prior to transfer to senior care [facility] Objective Data Objective Data Vital Signs: [...] (Auto) 69.1, Lymph % (Auto) 13.4 L, [place] % (Auto) 11.6 H, Eos % (Auto) [...] Secondary to multiple medical comorbidities. Transfer to senior care facility had been recommended to patient during previous hospitalization he did decline. I had a discussion with patient he is amenable to entertaining the idea of going to senior care facility. Subsequently requested for PT OT eval and child welfare social worker to assist with discharge planning ? 01/03/2025; plan is to discuss with case management regarding disposition ? 01/05/2025; awaiting insurance pre-CERT prior to transfer to senior care facility 2. Severe hypokalemia ? Patient potassium [...] SCDs for Charges/Coding Visit Charges Inpatient E&M: 90568 Subs Hosp L2 01/05/25 1101 <Electronically signed by Hill Acuña MD> Cosigner Signature (if applicable): CC: ~ Signed [facility] Work Phone: 1(116) 243-203506-03-2025 Progress note Author Hill Acuña [facility] Note Date/Time January 04, 2025 10:18 am [facility] Medical Records Department [address] [place] [address] [place] [address] Progress Note - Hospitalist 01/04/25 1014 MR#: [id number] Acct: [id number] Name: FRANKLIN ARCHULETA Rep #:[id number] : 1965 59 From: Hill Acuña MD PCP: Josy Elias DIRECTOR INSTRUMENTATION-[place] Status:ADM I N Location: [place] [address] Reason for Visit Reason for Visit: Diagnoses [...] Secondary to multiple medical comorbidities. Transfer to senior care facility had been recommended to patient during previous hospitalization he did decline. I had a discussion with patient he is amenable to entertaining the idea of going to senior care facility. Subsequently requested for PT OT eval and child welfare social worker to assist with discharge planning [...] SCDs for Charges/Coding Visit Charges Inpatient E&M: 32054 Subs Hosp L2 01/04/25 1018 <Electronically signed by Hill Acuña MD> Cosigner Signature (if applicable): CC: ~ Signed [facility] Work Phone: 1(504) 988-988906-02-2025 Progress note Author Hill [facility] Note Date/Time January 03, 2025 9:52a m [facility] Medical Records Department [address] [place] [address] Progress Note - Hospitalist 01/03/25 0839 MR#: [id number] Acct: [id number] Name: FRANKLIN ARCHULETA Rep #:[id number] : 1965 59 From: Hill Acuña MD PCP: YG Pena Status:ADM I N Location: [place] [address] Reason for Visit Reason for Visit: Diagnoses [...] (Auto) 67.5, Lymph % (Auto) 13.9 L, [place] % (Auto) 11.5 H, Eos % (Auto) [...] Secondary to multiple medical comorbidities. Transfer to senior care facility had been recommended to patient during previous hospitalization he did decline. I had a discussion with patient he is amenable to entertaining the idea of going to senior care facility. Subsequently requested for PT OT eval and child welfare social worker to assist with discharge planning [...] SCDs for Charges/Coding Visit Charges Inpatient E&M: 09259 Subs Hosp L2 01/03/25 1674 <Electronically signed by Hill Acuña MD> Cosigner Signature (if applicable): CC: ~ Signed [facility] Work Phone: [phone]) 243-305606-01-2025 Progress note Author Hill Acuña [facility] Note Date/Time January 02, 2025 9:58a m [facility] Medical Records Department [address] [place] [address] Progress Note - Hospitalist 01/02/25 0736 MR#: [id number] Acct: [id number] Name: FRANKLIN ARCHULETA Rep #:[id number] : 1965 59 From: Hill Acuña MD PCP: YG Pena Status:ADM I N Location: [place] [address] Reason for Visit Reason for Visit: Diagnoses Acute kidney failure, unspecified (01/02/25) Unspecified fall, initial encounter (01/02/25) Subjective Subjective Patient is a 59-year-old gentleman with recent multiple hospitalization presented to the emergency department with progressive generalized weakness and vomiting. This was apparently his third visit to the ED within a week. Patienthad been encouraged to be discharged to a senior care facility he however declined. Objective Data Objective [...] (Auto) 68.0, Lymph % (Auto) 12.2 L, [place] % (Auto) 11.9 H, Eos % (Auto) [...] insufficiency fracture again noted, unchanged. Reading Location: [id number] Brain CT 01/02/25 03:55 IMPRESSION: No intracranial hemorrhage, mass effect or calvarial fracture. Moderate volume loss, atrophy again noted. Mild left maxillary sinus disease appears mildly decreased from the prior study. Reading Location: [facility] Cervical Spine CT 01/02/25 03:55 IMPRESSION: No fracture or malalignment. Multilevel spondylosis/discogenic change greatest at C5-6 Reading Location: [facility] Physical Exam Narrative GENERAL: cooperative HEENT: [...] Secondary to multiple medical comorbidities. Transfer to senior care facility had been recommended to patient during previous hospitalization he did decline. I had a discussion with patient he is amenable to entertaining the idea of going to senior care facility. Subsequently requested for PT OT eval and child welfare social worker to assist with discharge planning [...] documentation, 38Minutes Charges/Coding Visit Charges Inpatient E&M: 84460 PROLNG IP/OBS E/M EA 15 MIN Multi Select Codes Visit Charges Visit Charges: 64977 PROLNG IP/OBS E/M EA 15 MIN 01/02/25 0958 <Electronically signed by Hill Acuña MD> Cosigner Signature (if applicable): CC: ~ Signed [facility] Work Phone: 1(575) 769-629806-01-2025 History and physical note Author Buster Fuchs [facility] Note Date/Time January 02, 2025 6:44a m [facility] Medical Records Department [address] [place] [address] H&P Exam - Hospitalist 01/02/25 0556 MR#: [id number] Acct: [id number] Name: FRANKLIN ARCHULETA Rep #:[id number] : 1965 59 From: Buster duarte MD PCP: YG Pena Status:ADM I N Location: [place] [address] HPI - General General Date of Admission: 01/02/25 HPI Narrative FRANKLIN ARCHULETA, is a 59 M who presents to the hospital with weakness and a fall. He did not hit his head or lose consciousness. He has had an extensive recent medical history with cirrhosis and UTI with staghorn calculus, he was in the ICUin October. 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 Was not considered to be a liver transplant candidate and was placed on anticoagulation. He has had a couple of readmissions for weakness and debility. Hayes to possibly have aUTI given a staghorn [...] Heis receiving potassium infusion in the ER. [facility] Medical History Weakness Diarrhea [...] (Auto) 68.0, Lymph % (Auto) 12.2 L, [place] % (Auto) 11.9 H, Eos % (Auto) [...] insufficiency fracture again noted, unchanged. Reading Location: [facility] Brain CT 01/02/25 03:55 IMPRESSION: No intracranial hemorrhage, mass effect or calvarial fracture. Moderate volume loss, atrophy again noted. Mild left maxillary sinus disease appears mildly decreased from the prior study. Reading Location: [facility] Cervical Spine CT 01/02/25 03:55 IMPRESSION: No fracture or malalignment. Multilevel spondylosis/discogenic change greatest at C5-6 Reading Location: [facility] Assessment & Plan Assessment/Plan (1) Fall: [...] once verified Charges/Coding Visit Charges Inpatient E&M: 53171 Init Hosp L2 01/02/25 0644 <Electronically signed by Buster Fuchs MD> Cosigner Signature (if applicable): CC: YG Obrienf; Dr. Buster Fuchs MD~ Signed [facility] Work Phone: 1(236) 587-614406-01-2025 Discharge summary Author Roddy Reeves [facility] Note Date/Time January 02, 2025 6:00a m [facility] Medical Records Department [address] [place] [address] Emergency Department Summary 01/02/25 MR#: [id number] Acct: [id number] Name: FRANKLIN ARCHULETA Rep #:[id number] : [...] was here recently and was sent home. [facility] Medical History Weakness Diarrhea Sepsis Acidosis, lactic [...] Patient following commands that he was at [facility] that wewere in the end of December [...] (Auto) 68.0 Lymph % (Auto) 12.2 L [place] % (Auto) 11.9 H Eos % (Auto) [...] insufficiency fracture again noted, unchanged. Reading Location: [id number] Brain CT 01/02/25 03:55 IMPRESSION: No intracranial hemorrhage, mass effect or calvarial fracture. Moderate volume loss, atrophy again noted. Mild left maxillary sinus disease appears mildly decreased from the prior study. Reading Location: [facility] Cervical Spine CT 01/02/25 03:55 IMPRESSION: No fracture or malalignment. Multilevel spondylosis/discogenic change greatest at C5-6 Reading Location: [facility] Discharge Plan Triage Chief Complaint: Weakness [...] NP-C [Primary Care Provider] - Print Language: Marshallese Disposition Disposition: Acute Care Hospital [facility] What to do if you have Problems For any increased pain, shortness of breath, bleeding, nausea or vomiting, chestpain, or any unexpected problems, contact your Primary Care Provider. Call [facility] ([phone]) or report to the closest Emergency Room. Call 911 if necessary. 01/02/25 0600 <Electronically signed by Roddy Reeves DO> Cosigner Signature (if applicable): CC: YG Elias ~ Signed [facility] Work Phone: 1(345) 404-797006-01-2025 Radiology Diagnostic study [facility]06-01-2025 Radiology Diagnostic study [facility]06-01-2025 Radiology Diagnostic study [facility] 12-30-2024 Radiology Diagnostic study [facility]05-25-2025 Radiology Diagnostic study [facility]05-14-2025 Radiology Diagnostic study [facility]04-20-2025 Radiology Diagnostic study [facility]04-17-2025 Telephone encounter Note* Telephone Encounter - Marah Arauz LSW - 11/18/2024 2:24 PM EDT JEANNINE received two messages from pt's RN . Pt's RN stated that the pt wanted to speak to transplant social work to clarify something. Pt was denied at liver selection committee on 11/17/24 due to numerous psychosocial issues (lack of caregivers, unstable housing, unstable finances, unreliable transportation). SW notified RN that once a pt is closed in selection SW is not allowed to follow up with pt. SW called pt's following doctor, Dr. Roger Mosley. Pt will be scheduled to follow up with [facility]. SW asked that Dr. Mosley inform this pt that he can return to our transplant center again and be re-evaluated once he has addressed his prohibitive psychosocial concerns (lack of caregivers, unstable housing, unstable finances, unreliable transportation). Dr. Mosley agreed to do so. [facility] Work Phone: 1(935) 513-364004-17-2025 Miscellaneous Notes* Telephone Encounter - Marah Arauz LSW - 11/18/2024 2:24 PM EDT JEANNINE received two messages from pt's RN . Pt's RN stated that the pt wanted to speak to transplant social work to clarify something. Pt was denied at liver selection committee on 11/17/24 due to numerous psychosocial issues (lack of caregivers, unstable housing, unstable finances, unreliable transportation). SW notified RN that once a pt is closed in selection SW is not allowed to follow up with pt. SW called pt's following doctor, Dr. Roger Mosley. Pt will be scheduled to follow up with [facility]. JEANNINE asked that Dr. Mosley inform this pt that he can return to our transplant center again and be re-evaluated once he has addressed his prohibitive psychosocial concerns (lack of caregivers, unstable housing, unstable finances, unreliable transportation). Dr. Mosley agreed to do so. [facility] Telephone encounter Note * Telephone Encounter [...] transportation. . Jeremi Abreu RN, BSN Liver Development Representative [facility] Work Phone: 1(505) 752-535604-17-2025 Miscellaneous Notes* Telephone Encounter - Jeremi Abreu [...] transportation. . Jeremi Abreu RN, BSN Liver Development Representative documented in this encounterMansfield Hospital04-17-[address] [facility]04-17-[address] [facility]04-16-[address] [facility]04-16-[address] [facility]04-16-[address] [address] [facility]04-15-[address] [facility]04-15-[address] [facility]04-15-[address] [facility] 11-15-[address] [facility]04-14-[address] [facility]04-14-[address] [facility]04-14-2025 History of Present illness Narrative* Marah [...] 15, 2024 2:35 PM documented in this encounterMansfield Hospital04-14-[address] [facility]04-14-2025 History of Present illness Narrative* Virgil Farley DDS - 11/15/2024 1:48 PM EDTSummary: Liver Transplant Dental Bedside Clearance See inpatient note for this encounter on 11/15/2024. Virgil Farley DDS documented in this encounterMansfield Hospital04-14-[address] [facility]04-13-[address] [facility]04-12-[address] [facility]04-11-2025 History of Present illness Narrative* iLzett Guzman RPh - 11/12/2024 4:34 PM EDT [...] mg capsule(s) rifAXIMin 550 mg tab(s) (XIFAXAN) lbvhdcf-ixrnbkxjz-xitedlv D3 500 mg-5 mcg (200 unit) 1 [...] Guzman, PharmD Transplant Pharmacy Clinical Specialist Pager: [phone] documented in this encounterMansfield Hospital04-11-[address] [facility]04-11-[address] [facility]04-11-2025 History of Present illness Narrative* Jeremi Abreu RN - 11/12/2024 2:52 PM EDT The following information has been provided/discussed with the patient/family during Shared MedicalAppointment education class: Informed Consent for Organ Transplant Program Participation version February 20, 2023. SRTR information provided and questions answered. Informed patient to call sales service coordinator with any questions. UNOS information regarding multiple listings for organ transplantation Evaluation process including presentation to selection committee and listing criteria Surgical procedure, including post-operative management, hospitalization, immunosuppressive medications and their side effects (including the risk for hypertension, diabetes, kidney problems and cancers) and senior living follow up after transplant. Possibility of recurrent [...] was also addressed Patient was [facility] with [facility] information sheet regarding transplantation of HepatitisC [...] In Department: TRANSPLANT CENTER documented in this encounterM[facility]field Hospital04-11-[address] [facility]04-11-2025 History of Present illness Narrative* Marah [...] 12, 2024 1:16 PM documented in this encounterMansfield Hospital04-11-2025 Miscellaneous Notes* Telephone Encounter - Jeremi Abreu RN - 11/12/2024 12:08 PM EDT INFORMED CONSENT [facility] Medical Record: [id number] Informed consent for Organ Transplant Program Participation [...] questions answered. Jeremi Abreu RN, BSN Liver Development Representative documented in this encounterMansfield Hospital04-11-2025 Telephone encounter Note * Telephone Encounter - Jeremi Abreu RN - 11/12/2024 12:08 PM EDT INFORMED CONSENT [facility] Medical Record: [id number] Informed consent for Organ Transplant Program Participation [...] questions answered. Jeremi Abreu RN, BSN Liver Development Representative [facility] Work Phone: 1(543) 399-134204-11-2025 [facility]04-11-2025 NoteHNO ID: [id number] Author: KIRTI VELÁSQUEZ RN Service: Nursing Author Type: Registered Nurse Type: Nursing Progress Note Filed: 11/12/2024 00:58 Note Text: Other: PTTAC-no clot detected at 320-heparin gtt stopped-need futher orders-[place] [facility] notifiedMer[facility]04-10-[address] [facility] 11-11-[address] [facility]04-10-[address] [facility]04-09-2025 Discharge summary Author Kathie Lemos [facility] Note Date/Time November 10, 2024 8:42 pm [facility] Medical Records Department [address] [place] [address] Discharge Summary 11/10/241936 MR#: [id number] Acct: [id number] Name: FRANKLIN ARCHULETA Rep #:[id number] : 1965 59 From: Kathie Lemos MD PCP: Care Physician,No Primary Status :ADM IN Location: [place] [address]- 1 Providers Date of Admission: 10/29/24 Date of Discharge: 11/10/24 Primary Care Physician: No Primary Care Phys Consultations 10/29/24 01:15 Consult: Urology Routine Consulting Provider: Foster Rascon Reason for Consult: Sepsis with UTI and Staghorn Calculus. EMERGENT Consult: No MD Notified: Yes Date Notified: 10/29/24 Time Notified: 08:07 Method of Notification: Verbal 10/29/24 01:47 Consult: Strategic Marketing Manager / Pulmonary Medicine Routine Consulting Provider: Intensivists/Pulmonary Med Reason for Consult: Sepsis, UTI, Diarrhea, Abdominal Pain and Back Pain. EMERGENT Consult: No Notified: Yes Date Notified: 10/29/24 Time Notified: 04:58 Method of Notification: Text 10/30/24 03:54 Consult: Gastroenterology Routine Consulting Provider: [facility] Reason for Consult: BOYER, elevated ammonia EMERGENT Consult: No Notified: Yes Date Notified: 10/30/24 Time Notified: 07:31 Method of Notification: Text 11/09/24 21:26 Consult: Gastroenterology Routine Consulting Provider: [facility] Reason for Consult: cirrhosis,ascites,splenic thrombosis, low plts, possible dec in heidy motili EMERGENT Consult: No Notified: Yes Date Notified: 11/10/24 Time Notified: 05:35 Method of Notification: Text Consult: Oncology/Hematology [facility]ine [facility] Reason for Consult: splenic thrombosis in cojunction w/ thrombocytopenia and active hematuria EMERGENT Consult: No Notified: Yes Date Notified: 11/10/24 Time Notified: 06:36 Method of Notification: Text Consult: Urology Routine Consulting Provider: Foster Rascon Reason for Consult: reconsult, staghorn coliculi, low plts, thrombosis, ongoing hematuria EMERGENT Consult: No Notified: Yes Date Notified: 11/10/24 Time Notified: [...] diabetes, staghorn colliculi, cirrhosis who presented to [facility] ED 10/29/2024 with sepsis and [...] heme-onc was in agreement. Reach out to [facility] and ultimately patient was accepted by the manager inventory Dr. Neal. Patient with bed assignment 11/10, patient to be transferred to [facility] Physical Exam Narrative General: Sleeping but [...] 83.0 H, Lymph % (Auto) 6.6 L, [place] % (Auto) 6.9, Eos % (Auto) 1.9, [...] with sequela of portal hypertension. Reading Location: [facility] Instructions DC O2, CPAP, BIPAP Needs Home [...] Thai Godfrey; Juan Daniel Garza; Zachariah Glover; cSott Weston; Yue Delgadillo DIRECTOR INSTRUMENTATION Discharge Orders/Prescriptions Prescriptions: No Action lidocaine 5 [...] before D/C Order can be placed): Acute [facility] Hospital Charges/Coding Visit Charges Inpatient E&M: 70042 Disch Hosp >30min 11/10/242041 <Electronically signed by Kathie Lemos MD> Cosigner Signature (if applicable): CC: Dr. Kathie Lemos MD; No Primary Care Physician~ Signed [facility] Work Phone: [phone]) [phone] Discharge summary Author Kathie Lemos [facility] Note Date/Time November 10, 2024 7:37 pm [facility] Medical Records Department [address] [place] [address] Instructions for Home/Discharge Instructions 11/10/24 1936 MR#: [id number] Acct: [id number] Name: FRANKLIN ARCHULETA Rep #:[id number] : [...] Consulting Providers: Hill Caro; Foster Rascon; Buster Fuchs David; Hill Herrmann; Blair Cage; Thiago Wray; Gabbi Hughes; Thai Godfrey; Juan Daniel Garza; Zachariah Glover; Scott Weston; Yue Delgadillo DIRECTOR INSTRUMENTATION Discharge Orders/Prescriptions Prescriptions: No Action lidocaine 5 [...] or pain) [facility] Week Care Physician,No Primary [Primary Care Provider] - Disposition Disposition (needs filled in before D/C Order can be placed): [facility] 11/10/241936<Electronically signed by Kathie Lemos MD>Kathie Lemos [...] DO; No Primary Care Physician ~ Signed [facility] Work Phone: 1(185) 231-118104-09-2025 Consult note Author Foster Rascon [facility] Note Date/Time November 10, 2024 8:59 am [facility] Medical Records Department [address] [address] Consultation 11/10/2457 MR#: [id number] Acct: [id number] Name: FRANKLIN ARCHULETA Rep #:[id number] : 1965 59 From: Foster Rascon MD PCP: Care Physician,No Primary Status :ADM IN Location: [place] [address] Consult Date of Consult: 11/10/24 59-year-old male [...] applicable): CC: No Primary Care Physician~ Signed [facility] Work Phone: [phone] Progress note Author Kathie Lemos [facility] Note Date/Time November 09, 2024 9:26 pm [facility] Medical Records Department [address] [place] [address] Progress Note - Hospitalist 11/09/242120 MR#: [id number] Acct: [id number] Name: GEREMIASFRANKLIN Rep #:[id number] : 1965 59 From: Kathie Lemos MD PCP: Care Physician,No Primary Status :ADM IN Location: [place] [address] scan w/ ascites and [...] Cosigner Signature (if applicable): CC: ~ Signed [facility] Work Phone: 1(287) 988-159704-08-2025 Progress note Author Kathie [facility] Note Date/Time November 09, 2024 6:54 pm [facility] Medical Records Department [address] [place] [address] Progress Note - Hospitalist 11/09/24 1850 MR#: [id number] Acct: [id number] Name: FRANKLIN ARCHULETA Rep #:[id number] : 1965 59 From: Kathie Lemos MD PCP: Care Physician,No Primary Status :ADM IN Location: [place] [address] Reason for Visit Reason for Visit: Diagnoses [...] 79.1 H, Lymph % (Auto) 8.2 L, [place] % (Auto) 8.1, Eos % (Auto) 3.0, [...] with interval NG tube removal. Reading Location: [facility] Rhythm Strip Rhythm Strip: Sinus [...] 42 Minutes Charges/Coding Visit Charges Inpatient E&M: 01347 Subs Hosp L2 11/09/24 1854 <Electronically signed by Kathie Lemos MD> Cosigner Signature (if applicable): CC: ~ Signed [facility] Work Phone: 1(611) 210-167604-08-2025 Radiology Diagnostic study [facility]04-08-2025 Radiology Diagnostic study [facility]04-07-2025 Progress note Author Kathie Lemos [facility] Note Date/Time November 08, 2024 6:26 pm [facility] [address] [place] [address] Progress Note - Hospitalist 11/08/24 1441 MR#: [id number] Acct: [id number] Name: FRANKLIN ARCHULETA Rep #:[id number] : 1965 59 From: Kathie Lemos MD PCP: Care Physician,No Primary Status :ADM IN Location: [place] [address] Reason for Visit Reason for Visit: Diagnoses [...] 56 Minutes Charges/Coding Visit Charges Inpatient E&M: 01696 Subs Hosp L3 11/08/24 1503 <Electronically signed [...] Cosigner Signature (if applicable): cc: ~* Signed [facility] Work Phone: 1(137) 812-692604-06-2025 Progress note Author Hill Acuña [facility] Note Date/Time November 07, 2024 10:3 8am [facility] Medical Records Department [address] [place] [address] Progress Note - Hospitalist 11/07/24 0913 MR#: [id number] Acct: [id number] Name: FRANKLIN ARCHULETA Rep #:[id number] : 1965 59 From: Hill Acuña MD PCP: Care Physician,No Primary Status :ADM IN Location: [place] [address] Reason for Visit Reason for Visit: Diagnoses [...] 81.5 H, Lymph % (Auto) 6.9 L, [place] % (Auto) 6.9, Eos % (Auto) 2.3, [...] ? Requested for PT OT eval and child welfare social worker to assist with discharge planning ? 11/05/2024; plan is for patient to be discharged home when medically stable. Patient does not qualify for home health as he currently does not have a primarycare physician he has been given a referral to pick 1 Time spent in the patient's overall evaluation,decision-making process, review of diagnostic data, adjustment of management, discussion with other providers, nursing nursing and ancillary staff involved in patient's care documentation, 36 Minutes Charges/Coding Visit Charges Inpatient E&M: 88395 Subs Hosp L2 11/07/24 1038 <Electronically signed by Hill Acuña MD> Cosigner Signature (if applicable): CC: ~ Signed [facility] Work Phone: [phone] Progress note Author Hill Acuña [facility] Note Date/Time November 06, 2024 10:5 7am [facility] Medical Records Department [address] [place] [address] Progress Note - Hospitalist 11/06/24 0756 MR#: [id number] Acct: [id number] Name: FRANKLIN ARCHULETA Rep #:[id number] : 1965 59 From: Hill Acuña MD PCP: Care Physician,No Primary Status :ADM IN Location: [place] [address] Reason for Visit Reason for Visit: Diagnoses [...] ? Requested for PT OT eval and child welfare social worker to assist with discharge planning ? 11/05/2024; plan is for patient to be discharged home when medically stable. Patient does not qualify for home health as he currently does not have a primarycare physician he has been given a referral to [facility] Time spent in the patient's overall evaluation,decision-making process, review of diagnostic data, adjustment of management, discussion with other providers, nursing nursing and ancillary staff involved in patient's care documentation, 36 Minutes Charges/Coding Visit Charges Inpatient E&M: 31347 Subs Hosp L2 11/06/24 1057 <Electronically signed by Hill Acuña MD> Cosigner Signature (if applicable): CC: ~ Signed [facility] Work Phone: [phone]) [phone] Progress note Author Hill Acuña [facility] Note Date/Time November 05, 2024 9:26 am [facility] Medical Records Department [address] [place] [address] Progress Note - Hospitalist 11/05/24 0924 MR#: [id number] Acct: [id number] Name: GEREMIASFRANKLIN CARMELA Rep #:[id number] : 1965 59 From: Hill Acuña MD PCP: Care Physician,No Primary Status :ADM IN Location: [place] [address] Reason for Visit Reason for Visit: Diagnoses [...] 81.0 H, Lymph % (Auto) 6.7 L, [place] % (Auto) 7.1, Eos % (Auto) 2.3, [...] ? Requested for PT OT eval and child welfare social worker to assist with discharge planning ? 11/05/2024; plan is for patient to be discharged home when medically stable. Patient does not qualify for home health as he currently does not have a primarycare physician he has been given a referral to [facility] 1 Time spent in the patient's overall evaluation,decision-making process, review of diagnostic data, adjustment of management, discussion with other providers, nursing nursing and ancillary staff involved in patient's care documentation, 38 Minutes Charges/Coding Visit Charges Inpatient E&M: 01995 Subs Hosp L2 11/05/24 0926 <Electronically signed by Hill Acuña MD> Cosigner Signature (if applicable): CC: ~ Signed [facility] Work Phone: [phone]) [phone] Progress note Author Hill Glasskarma [facility] Note Date/Time November 04, 2024 11:5 0am [facility] Medical Records Department [address] [place] [address] Progress Note - Hospitalist 11/04/24 1105 MR#: [id number] Acct: [id number] Name: FRANKLIN ARCHULETA Rep #:[id number] : 1965 59 From: Hill Acuña MD PCP: Care Physician,No Primary Status :ADM IN Location: [place] [address] Reason for Visit Reason for Visit: Diagnoses [...] 83.6 H, Lymph % (Auto) 4.9 L, [place] % (Auto) 5.9, Eos % (Auto) 1.1, Baso % (Auto) 0.5, Absolute Neuts (auto) 24.0 H, Absolute Lymphs (auto) 1.41, Nucleated RBC % 0, Differential Comment SCANNED, Diff Path Review May foll, Platelet Estimate SLT DEC, Sodium 131 L, [...] ? Requested for PT OT eval and child welfare social worker to assist with discharge planning Time spent in the patient's overall evaluation,decision-making process, review of diagnostic data, adjustment of management, discussion with other providers, nursing nursing and ancillary staff involved in patient's care documentation, 38 Minutes Charges/Coding Visit Charges Inpatient E&M: 99899 Subs Hosp L2 11/04/24 1150 <Electronically signed by Hill Acuña MD> Cosigner Signature (if applicable): CC: ~ Signed [facility] Work Phone: 1([phone]) 549-115304-03-2025 Progress note Author [facility] Note Date/Time November 04, 2024 6:43 am [facility] Medical Records Department [address] [place] [address] Progress Note - Hospitalist 11/04/24 0642 MR#: [id number] Acct: [id number] Name: FRANKLIN ARCHULETA Rep #:[id number] : 1965 59 From: Maria Guadalupe Shore MD PCP: Care Physician,No Primary Status :ADM IN Location: [place] [address] Hospitalist Note Patient with 15 beat asymptomatic VT. Electrolytes recently checked, mag normal range, K normal range. 11/04/24 0643 <Electronically signed by Maria Guadalupe Shore MD> Cosigner Signature (if applicable): CC: ~ Signed [facility] Work Phone: [phone] Progress note Author [facility] Note Date/Time November 03, 2024 10:3 8pm [facility] Medical Records Department [address] [place] [address] Progress Note - Hospitalist 11/03/242236 MR#: [id number] Acct: [id number] Name: FRANKLIN ARCHULETA Rep #:[id number] : 1965 59 From: Maria Guadalupe Shore MD PCP: Care Physician,No Primary Status :ADM IN Location: [place] [address] Hospitalist Note Patient with mildly tachycardia through the late afternoon and evening. Will administer 500 cc bolus and reassess. From review of medications not normally onBB therapy. 11/03/242237 <Electronically signed by Maria Guadalupe Shore MD> Cosigner Signature (if applicable): CC: ~ Signed [facility] Work Phone: 1([phone]) 204-300504-02-2025 Progress note Author Hill Acuña [facility] Note Date/Time November 03, 2024 10:2 7am [facility] Medical Records Department [address] [place] [address] Progress Note - Hospitalist 11/03/24 1025 MR#: [id number] Acct: [id number] Name: FRANKLIN ARCHULETA Rep #:[id number] : 1965 59 From: Hill Acuña MD PCP: Care Physician,No Primary Status :ADM IN Location: [place] [address] Reason for Visit Reason for Visit: Diagnoses [...] ? Requested for PT OT eval and child welfare social worker to assist with discharge planning Time spent in the patient's overall evaluation,decision-making process, review of diagnostic data, adjustment of management, discussion with other providers, nursing nursing and ancillary staff involved in patient's care documentation, 38 Minutes Charges/Coding Visit Charges Inpatient E&M: 91063 Subs Hosp L2 11/03/24 1027 <Electronically signed by Hill Acuña MD> Cosigner Signature (if applicable): CC: ~ Signed [facility] Work Phone: [phone] Progress note Author Hill Acuña [facility] Note Date/Time November 02, 2024 10:0 5am [facility] Medical Records Department [address] [place] [address] Progress Note - Hospitalist 11/02/24 0804 MR#: [id number] Acct: [id number] Name: FRANKLIN ARCHULETA Rep #:[id number] : 1965 59 From: Hill Acuña MD PCP: Care Physician,No Primary Status :ADM IN Location: [place] [address] Reason for Visit Reason for Visit: Diagnoses [...] 50 Minutes Charges/Coding Visit Charges Inpatient E&M: 49119 Subs Hosp L3 11/02/24 1005 <Electronically signed by Hill Acuña MD> Cosigner Signature (if applicable): CC: ~ Signed [facility] Work Phone: 1([phone]) 475-963003-31-2025 Progress note Author Hill Acuña [facility] Note Date/Time November 01, 2024 11: 41am [facility] Medical Records Department [address] [place] [address] Progress Note - Hospitalist 11/01/24 1128 MR#: [id number] Acct: [id number] Name: FRANKLIN ARCHULETA Rep #:[id number] : 1965 59 From: Hill Acuña MD PCP: Care Physician,No Primary Status :ADM IN Location: [place] [address] Reason for Visit Reason for Visit: Diagnoses [...] 50 Minutes Charges/Coding Visit Charges Inpatient E&M: 60478 Subs Hosp L3 11/01/24 1141 <Electronically signed by Hill Acuña MD> Cosigner Signature (if applicable): CC: ~ Signed [facility] Work Phone: [phone] Progress note Author Niranjan Li [facility] Note Date/Time November 01, 2024 8:4 4am [facility] Medical Records Department [address] [place] [address] Progress Note 11/01/24 0836 MR#: [id number] Acct: [id number] Name: GEREMIASFRANKLIN CARMELA Rep #:[id number] : 1965 59 From: Niranjan Li DO PCP: Care Physician,No Primary Status :ADM IN Location: [place] [address] Progress Note Patient has a little bit [...] doses of vancomycin. Visit Charges Inpatient E&M: 56817 Subs Hosp L3 11/01/24 0844 <Electronically signed by Niranjan Friend DO> Niranjan Friend DO Cosigner Signature (if applicable): CC: ~ Signed [facility] Work Phone: [phone] Consult note Author Ale Renee [facility] Note Date/Time November 01, 2024 6:[address] [facility] Medical Records Department [address] [place] [address] Pharmacokinetic/Renal -Consult 11/01/24 0604 MR#: [id number] Acct: [id number] Name: GEREMIASFRANKLINKarma CASEY Rep #:[id number] : 1965 59 From: Ale Renee PCP: Care Physician,No Primary Status :ADM IN Y Location: [place] [address] Consult Antibiotic Management Pharmacy has been consulted [...] Date Hill Caro DO CC: ~ Signed [facility] Work Phone: [phone]) [phone] Progress note Author Buster Fuchs [facility] Note Date/Time October 31, 2024 9:5 5am [facility] Medical Records Department [address] [place] [address] Progress Note - Hospitalist 10/31/24 0952 MR#: [id number] Acct: [id number] Name: FRANKLIN ARCHULETA Rep #:[id number] : [...] (Auto) 80.3 H, Lymph %(Auto) 5.9 L, [place] % (Auto) 7.9, Eos % (Auto) 1.5, [...] they did add IV Flagyl ? Appreciate print production manager assistance 2. Acute metabolic cephalopathy with nonalcoholic [...] DVT: SCDs Charges/Coding Visit Charges Inpatient E&M: 09157 Subs Hosp L2 10/31/24 0955 <Electronically signed by Buster Fuchs MD> Cosigner Signature (if applicable): CC: ~ Signed [facility] Work Phone: [phone]) 376-729603-30-2025 Consult note Author Foster Rascon [facility] Note Date/Time October 31, 2024 7:3 1am [facility] Medical Records Department [address] [place] [address] Consultation 10/31/24 0730 MR#: [id number] Acct: [id number] Name: FRANKLIN ARCHULETA Rep #:[id number] : [...] applicable): CC: No Primary Care Physician~ Signed [facility] Work Phone: [phone] Consult note Author Niranjan Li [facility] Note Date/Time October 30, 2024 9:3 4pm [facility] Medical Records Department [address] [place] [address] Consultation - GI 10/30/242047 MR#: [id number] Acct: [id number] Name: FRANKLIN ARCHULETA Rep #:[id number] : [...] of yellow-colored fluid removed. He presented backto [facility] ER complaining of abdominal pain, [...] He is also on Zosyn for urosepsis. [facility] Medical History Chronic hypotension [...] 85.6 H, Lymph % (Auto) 4.3 L, [place] % (Auto) 7.3, Eos % (Auto) 0.5, [...] NG tube in satisfactory position. Reading Location[facility] Assessment & Plan Assessment/Plan (1) Sepsis: [...] this admission. Charges/Coding Visit Charges Inpatient E&M: 13869 Init Hosp L3 10/30/242133 <Electronically signed by Niranjan Li DO> Cosigner Signature (if applicable): CC: No Primary Care Physician~ Signed [facility] Work Phone: [phone] Consult note Author Kourtney Reece [facility] Note Date/Time October 30, 2024 4:[address] [facility] Medical Records Department [address] [place] [address] Pharmacokinetic/Renal -Consult 10/30/24 1552 MR#: [id number] Acct: [id number] Name: FRANKLIN ARCHULETA Rep #:[id number] : [...] monitor and adjust dosing as required. 10/30/24 1552 <Electronically signed by Kourtney Reece> Date _ Kourtney Reece 10/30/24 1612 <Electronically signed by Buster hurst MD> Cosigner Signature (if applicable): Date Buster Fuchs MD CC: ~ Signed [facility] Work Phone: [phone] Progress note Author yannick [facility] Note Date/Time October 30, 2024 10: 45am [facility] Medical Records Department [address] [place] [address] Progress Note - Strategic Marketing Manager 10/30/24 1037 MR#: [id number] Acct: [id number] Name: FRANKLIN ARCHULETA CARMELA Rep #:[id number] : 1965 59 From: [...] Dose Route Start Last Admin Trade Name Freq PRN Reason Stop Dose Admin Acetaminophen 650 mg 10/29/24 02:00 Acetaminophen 325 Mg Tablet PO Q8H PRN Pain 1-5/10 or Fever Ascorbic Acid 1,000 mg 10/29/24 [...] Lidocaine 5% Patch TOPICAL Not Given DAILY [facility] Protocol Midodrine 10 mg 10/29/24 02:00 10/30/24 [...] 1 lab 10/30/24 12:30 Vancomycin Trough/Random Due [facility] 10/30/24 16:30 DAILY KRYSTIN Zinc Sulfate 50 [...] 85.5 H, Lymph % (Auto) 4.6 L, [place] % (Auto) 7.4, Eos % (Auto) 1.2, [...] 85.6 H, Lymph % (Auto) 4.3 L, [place] % (Auto) 7.3, Eos % (Auto) 0.5, [...] pCO2 25.1 L ABG pO2 67 L Ulices Test Positive O2 Delivery Device Room Air Vent Mode Not entered Rhythm Strip Rhythm Strip: Sinus Rhythm Rate: 83 Ectopy: None Imaging Radiology Impression KUB X-Ray 10/30/24 09:11 IMPRESSION: NG tube in satisfactory position. Reading Location: [facility] Assessment and Plan . Assessment and [...] Cosigner Signature (if applicable): CC: ~ Signed [facility] Work Phone: [phone] Consult note Author Foster Rascon [facility] Note Date/Time October 30, 2024 9:5 8am [facility] Medical Records Department [address] [place] [address] Consultation - Urology 10/30/24 0956 MR#: [id number] Acct: [id number] Name: FRANKLIN ARCHULETA Rep #:[id number] : [...] not available on the weekend here at [facility]. We discussed transferring to other hospital for nephrostomy tube placement. We could also have a nephrostomy tube placed on Friday if radiology services are available. For now we will continue with broad-spectrum antibiotics await culture results but if things progress I think he is going to need nephrostomy tube we will continue to follow. [facility] Medical History Chronic hypotension [...] 85.5 H, Lymph % (Auto) 4.6 L, [place] % (Auto) 7.4, Eos % (Auto) 1.2, [...] 85.6 H, Lymph % (Auto) 4.3 L, [place] % (Auto) 7.3, Eos % (Auto) 0.5, [...] pCO2 25.1 L ABG pO2 67 L Ulices Test Positive O2 Delivery Device Room Air Vent Mode Not entered Rhythm Strip Rhythm Strip: Sinus Rhythm Rate: 83 Ectopy: None Imaging Radiology Impression Renal Ultrasound 10/29/24 00:52 IMPRESSION: 1. No hydronephrosis. 2. Staghorn calculus in the lower pole of the left kidney is better visualized on the recent CT scan. 3. Left-sided ureteral stent noted. Reading Location: [facility] X-Ray 10/30/24 09:11 IMPRESSION: NG tube in satisfactory position. Reading Location: [facility] 10/30/24 0958 <Electronically signed by Foster Rascon MD> Cosigner Signature (if applicable): CC: No Primary Care Physician~ Signed [facility] Work Phone: [phone] Progress note Author Buster Fuchs [facility] Note Date/Time October 30, 2024 8:2 9am [facility] Medical Records Department [address] [place] [address] Progress Note - Hospitalist 10/30/24 0820 MR#: [id number] Acct: [id number] Name: FRANKLIN ARCHULETA Rep #:[id number] : [...] 85.5 H, Lymph % (Auto) 4.6 L, [place] % (Auto) 7.4, Eos % (Auto) 1.2, [...] 85.6 H, Lymph % (Auto) 4.3 L, [place] % (Auto) 7.3, Eos % (Auto) 0.5, [...] pCO2 25.1 L ABG pO2 67 L Ulices Test Positive O2 Delivery Device Room Air Vent Mode Not entered Radiography Diagnostic Testing: Radiology Impression Renal Ultrasound 10/29/24 00:52 IMPRESSION: 1. No hydronephrosis. 2. Staghorn calculus in the lower pole of the left kidney is better visualized on the recent CT scan. 3. Left-sided ureteral stent noted. Reading Location: [facility] Rhythm Strip Rhythm Strip: Sinus Rhythm Rate: [...] antibiotics ? Cultures are pending ? Appreciate print production manager assistance 2. Acute metabolic cephalopathy with nonalcoholic [...] DVT: SCDs Charges/Coding Visit Charges Inpatient E&M: 12806 Subs Hosp L2 10/30/24 0829 <Electronically signed by Buster Fuchs MD> Cosigner Signature (if applicable): CC: ~ Signed [facility] Work Phone: [phone] Radiology Diagnostic study [facility]03-28-2025 Consult note Author Foster Rascon [facility] Note Date/Time October 29, 2024 10: 32am [facility] Medical Records Department [address] [place] [address] Consultation - Urology 10/29/24 0808 MR#: [id number] Acct: [id number] Name: FRANKLIN ARCHULETA Rep #:[id number] : [...] emergency intervention is necessary from my standpoint [facility] Medical History Chronic hypotension [...] 83.0 H, Lymph % (Auto) 5.6 L, [place] % (Auto) 8.4, Eos % (Auto) 1.4, [...] vertebral body compression fracture deformities. Reading Location: [facility] 10/29/24 1032 <Electronically signed by Foster Rascon MD> Cosigner Signature (if applicable): CC: No Primary Care Physician~ Signed [facility] Work Phone: [phone] Consult note Author Bola Meraz [facility] Note Date/Time October 29, 2024 10: 24am [facility] Medical Records Department [address] [place] [address] Consultation - Strategic Marketing Manager 10/29/24 0744 MR#: [id number] Acct: [id number] Name: GEREMIASFRANKLINKarma CASEY Rep #:[id number] : 1965 59 From: [...] coverage initiated. This note was generated with [employer] dictation software. It may contain incorrectwords, spelling, [...] stable, without the need for vasopressor support. [facility] Medical History Chronic hypotension [...] 83.0 H, Lymph % (Auto) 5.6 L, [place] % (Auto) 8.4, Eos % (Auto) 1.4, [...] vertebral body compression fracture deformities. Reading Location: [id number] Charges/Coding Visit Charges Inpatient E&M: 02648 Init Hosp L3 10/29/24 1024 <Electronically signed by Bola Meraz DO> Cosigner Signature (if applicable): CC: No Primary Care Physician~ Signed [facility] Work Phone: [phone] [facility] History and physical note Author Hill Wright [facility] Note Date/Time October 29, 2024 6:4 7am [facility] Medical Records Department [address] [place] [address] H&P Exam - Hospitalist 10/29/24 0033 MR#: [id number] Acct: [id number] Name: FRANKLIN ARCHULETA Rep #:[id number] : [...] toSeptember 02, 2024 with patient diagnosed with zfqmt-si-phblwmf hypotension in thesetting of acute hepatic encephalopathy [...] fluid removed who once again presents to [facility] ER complaining of abdominal pain, [...] thatis expected to extend beyond 2 midnights. [facility] Medical History Chronic hypotension [...] 83.0 H, Lymph % (Auto) 5.6 L, [place] % (Auto) 8.4, Eos % (Auto) 1.4, [...] vertebral body compression fracture deformities. Reading Location: [id number] Assessment & Plan Assessment/Plan (1) Sepsis: QUALIFIERS: [...] and sensitivity data. Give acetaminophen prn for zqdu-mt-asyacbml (level 1-5/10) pain or fever. Give morphine [...] appreciated in advance. Finally, we will consult print production manager to see this patient on-rounds in the AM for further recommendations with help appreciated in advance. 2. Admission here from August 29, 2024 to September 02, 2024 with patient diagnosed with tkaqb-bl-somnrpu hypotension in the setting of acute hepatic [...] responsive hypotension Charges/Coding Visit Charges Inpatient E&M: 80294 Init Hosp L3 10/29/24 0647 <Electronically signed by Hill Caro DO> Cosigner Signature (if applicable): CC: Dr. Hill Caro DO; No Primary Care Physician~ Signed [facility] Work Phone: [phone] Consult note Author Ale Renee [facility] Note Date/Time October 29, 2024 3:[address] [facility] Medical Records Department [address] [place] [address] Pharmacokinetic/Renal -Consult 10/29/24316 MR#: [id number] Acct: [id number] Name: FRANKLIN ARCHULETA Rep #:[id number] : 1965 59 From: [...] Follow-Up Labs: Trough: Vancomycin (10/30/24 @ 14:30) 10/29/24317 <Electronically signed by Ale Renee> Date _ Ale Renee 10/29/24 0334 <Electronically signed by Hill Stiles DO> Cosigner Signature (if applicable): Date Hill Caro DO CC: ~ Signed [facility] Work Phone: [phone] 370-882303-28-2025 Discharge summary Author Alber Dunn [facility] Note Date/Time October 29, 2024 1:0 4am [facility] Medical Records Department [address] [place] [address] Emergency Department Summary 10/28/24 MR#: [id number] Acct: [id number] Name: FRANKLIN ARCHULETA Rep #:[id number] : [...] There is a pressure was 81/50 5 qluccn92/60 when I am in the room it [...] 83.0 H Lymph % (Auto) 5.6 L [place] % (Auto) 8.4 Eos % (Auto) 1.4 [...] vertebral body compression fracture deformities. Reading Location: [facility] Rhythm Strip Rhythm Strip: Sinus Rhythm Rate: 83 Ectopy: None EKG Initial EKG: Attestation: I personally reviewed and interpreted this EKG as follows: Interpretation: Sinus Rhythm and No Acute Injury Pattern Comments: Normal sinus rhythm rate 83 no acute signs of PA or ischemia. No dysrhythmia. Critical Care Time Critical Care Time: Yes Critical care time (excluding procedures): 30-74 minutes, Including time spent:,Discussing w/Patient &/or Family/Director Sales And Trade Marketing, Discussing w/Consultants, ArrangingAdmission or Transfer, Performing Direct Patient Care at Bedside and - (38 min) Discharge Plan Dx/Rx/DC Orders Clinical Impression: Chronic back pain, Chronic abdominal pain, Leukocytosis, Acute UTI, Acute hypotension, Acidosis, lactic, Sepsis Disposition Disposition: [facility] Care [facility] What to do if you have Problems For any increased pain, shortness of breath, bleeding, nausea or vomiting, chestpain, or any unexpected problems, contact your Primary Care Provider. Call [facility] ([phone]) or report to the closest Emergency Room. Call 911 if necessary. 10/29/24 0104 <Electronically signed by Alber Dunn MD> Cosigner Signature (if applicable): CC: No Primary Care Physician ~ Signed [facility] Work Phone: [phone] Discharge summary [facility] Medical Records Department [address] [place] [address] Emergency Department Summary 10/28/24 MR#: [id number] Acct: [id number] Name: FRANKLIN ARCHULETA Rep #:[id number] : [...] Currently he is stable at12:10 AM. Curr ent blood pressure is 110/67. Spoke to the [...] 83.0 H Lymph % (Auto) 5.6 L [place] % (Auto) 8.4 Eos % (Auto) 1.4 [...] vertebral body compression fracture deformities. Reading Location: [facility] Rhythm Strip Rhythm Strip: Sinus Rhythm Rate: 83 Ectopy: None EKG Initial EKG: Attestation: I personally reviewed and interpreted this EKG as follows: Interpretation: Sinus Rhythm and No Acute Injury Pattern Comments: Normal sinus rhythm rate 83 no acute signs of PA or ischemia. No dysrhythmia. Critical Care Time Critical Care Time: Yes Critical care time (excluding procedures): 30-74 minutes, Including time spent:,Discussing w/Patient &/or Family/Director Sales And Trade Marketing, Discussing w/Consultants, ArrangingAdmission or Transfer, Performing Direct Patient Care at Bedside and - (38 min) Discharge Plan Dx/Rx/DC Orders Clinical Impression: Chronic back pain, Chronic abdominal pain, Leukocytosis, Acute UTI, Acute hypotension, Acidosis, lactic, Sepsis Disposition Disposition: Acute Care Hospital [facility] What to do if you have Problems For any increased pain, shortness of breath, bleeding, nausea or vomiting, chestpain, or any unexpected problems, contact your Primary Care Provider. Call [facility] ([phone]) or report tothe closest Emergency Room. Call 911 if necessary. 10/29/24 0104 Cosigner Signature (if applicable): CC: No Primary Care Physician ~ Signed [facility]03-27-2025 Radiology Diagnostic study note [facility] Imaging Services [address] [place] [address] Abdomen/Pelvis W IV Cont ONLY MR#: [id number] Acct: [id number] Name: FRANKLIN ARCHULETA Rep #: [id number] : 1965 M 59 From: Cassandra Starkey MD PCP: Care Physician,No Primary Status: REG ER Study:Abdomen/Pelvis W IV Cont ONLY Date of E xam: 10/28/24 Exam# [id number] Ordering Dr: Tee Dunn MD PROCEDURE: ABDOMEN/PELVIS [...] vertebral body compression fracture deformities. Reading Location: [facility] CC: Dr. Alber Dunn MD; No Primary Care Physician ~ Performance Improvement Manager: Signed [facility]03-27-2025 Discharge summary Author Alber Dunn [facility] Note Date/Time October 29, 2024 1:0 4am [facility] Medical Records Department [address] [facility] [place] [address] Emergency Department Summary 10/28/24 MR#: [id number] Acct: [id number] Name: FRANKLIN ARCHULETA Rep #:[id number] : [...] Prior similar symptoms: Yes Recent [facility] Medical History Chronic hypotension [...] There is a pressure was 81/50 5 bdlmmy98/60 when I am in the room it [...] 83.0 H Lymph % (Auto) 5.6 L [place] % (Auto) 8.4 Eos % (Auto) 1.4 [...] vertebral body compression fracture deformities. Reading Location: [facility] Rhythm Strip Rhythm Strip: Sinus Rhythm Rate: 83 Ectopy: None EKG Initial EKG: Attestation: I personally reviewed and interpreted this EKG as follows: Interpretation: Sinus Rhythm and No Acute Injury Pattern Comments: Normal sinus rhythm rate 83 no acute signs of PA or ischemia. No dysrhythmia. Critical Care Time Critical Care Time: Yes Critical care time (excluding procedures): 30-74 minutes, Including time spent:,Discussing w/Patient &/or Family/Director Sales And Trade Marketing, Discussing w/Consultants, ArrangingAdmission or Transfer, Performing Direct Patient Care at Bedside and - (38 min) Discharge Plan Dx/Rx/DC Orders Clinical Impression: Chronic back pain, Chronic abdominal pain, Leukocytosis, Acute UTI, Acute hypotension, Acidosis, lactic, Sepsis Disposition Disposition: Acute Care Hospital [facility] What to do if you have Problems For any increased pain, shortness of breath, bleeding, nausea or vomiting, chestpain, or any unexpected problems, contact your Primary Care Provider. Call [facility] ([phone]) or report to the closest Emergency Room. Call 911 if necessary. 10/29/24 0104 <Electronically signed by Alber Dunn MD> Cosigner Signature (if applicable): CC: No Primary Care Physician ~ Signed [facility] Work Phone: [phone]) [phone] Procedure note* Joey Huang DO - 10/04/2024 5:17 PM ESTAssociated Order(s): Paracentesis Post-Procedure Diagnose(s): Other ascites Paracentesis Date/Time: 10/04/2024 5:17 PM Performed by: Joey Huang DO Authorized by: Joey Huang DO Consent: Consent obtained: Written Consent given by: Patient Risks, benefits, and alternatives were discussed: yes Risks discussed: Bleeding, bowel perforation and infection Alternatives discussed: No treatment [place] protocol: Procedure explained and questions answered to [...] Adhesive bandage Post-procedure details: Procedure completion: Tolerated [facility] Work Phone: 1([phone]) 171-348603-03-2025 Procedure note* Joey Huang DO - 10/04/2024 5:17 PM ESTAssociated Order(s): Paracentesis Post-Procedure Diagnose(s): Other ascites Paracentesis Date/Time: 10/04/2024 5:17 PM Performed by: Joey Huang DO Authorized by: Joey Huang DO Consent: Consent obtained: Written Consent given by: Patient Risks, benefits, and alternatives were discussed: yes Risks discussed: Bleeding, bowel perforation and infection Alternatives discussed: No treatment [place] protocol: Procedure explained and questions answered to [...] details: Procedure completion: Tolerated documented in this [facility] Work Phone: 1(507) 978-838603-03-2025 Consult note* Joey Huang DO - 10/04/2024 5:13 PM EST Reason For Consult Ascites History Of Present Illness Franklin Archuleta is a 59 y.o. male presenting with abdominal pain. He presented to the emergency room from [facility] secondary to increasing abdominal girth pain and ascites He was recently drained at [facility] for his ascites His abdomen is hurting [...] call Assessment & Plan Joey Huang DO [facility] Work Phone: 1(625) 584-786603-03-2025 Consult note* Joey Huang DO - 10/04/2024 5:13 PM EST Reason For Consult Ascites History Of Present Illness Franklin Archuleta is a 59 y.o. male presenting with abdominal pain. He presented to the emergency room from [facility] secondary to increasing abdominal girth pain and ascites He was recently drained at [facility] for his ascites His abdomen is hurting [...] Plan Joey Huang DO documented in this [facility] Work Phone: [phone]) 443-641703-03-2025 Physician Emergency department Note* Sriram Oleary PA-C [...] Abnormality Status --------- ------ Urinalysis with Reflex C...[[id number]] Extra Urine Garvey Tube[[id number]] Please view results for these tests on the individual orders. URINALYSIS WITH REFLEX CULTURE AND MICROSCOPIC EXTRA URINE GARVEY TUBE PH, BODY FLUID LACTATE DEHYDROGENASE, BODY FLUID Narrative: The following orders were created for panel order Lactate Dehydrogenase, Body Fluid. Procedure Abnormality Status --------- ------ Lactate Dehydrogenase, B...[[id number]] In process Please view results for these tests on the individual orders. GLUCOSE, BODY FLUID Narrative: The following orders were created for panel order Glucose, Body Fluid. Procedure Abnormality Status --------- ------ Glucose, Body Fluid[[id number]] In process Please view results for these tests on the individual orders. PROTEIN, TOTAL, BODY FLUID Narrative: The following orders were created for panel order Protein, Total, Body Fluid. Procedure Abnormality Status --------- ------ Protein, Total, Body Fluid[[id number]] In process Please view results for these tests on the individual orders. BODY FLUID CELL COUNT WITH DIFFERENTIAL Narrative: The following orders were created for panel order Body Fluid Cell Count With Differential. Procedure Abnormality Status --------- ------ Body Fluid Cell Count[[id number]] In process Body Fluid Differential[[id number]] In process Please view results for these tests on the individual orders. ALBUMIN, BODY FLUID Narrative: The following orders were created for panel order Albumin, Body Fluid. Procedure Abnormality Status --------- ------ Albumin, Body Fluid[[id number]] In process Please view results for these [...] Yohana Huang 10/04/2024 2:28 PM Dictation workstation: [id number] Procedures Medical Decision Making Patient is a 59-year-old male with a hx of cirrhosis who presents to the emergency department with a chief complaint of abdominal pain from [facility]. He reports increased abdominal pain that he describes as generalized, states that his abdomen is distended. Recently had a paracentesis performed at [facility] on September 29. Patient reports that he [...] cirrhosis type (Multi) Sriram Oleary PA-C 10/04/241736 [facility] Work Phone: 1(628) 219-209603-03-2025 Emergency department Note* Sriram Oleary PA-C - [...] Abnormality Status --------- ------ Urinalysis with Reflex C...[[id number]] Extra Urine Garvey Tube[[id number]] Please view results for these tests on the individual orders. URINALYSIS WITH REFLEX CULTURE AND MICROSCOPIC EXTRA URINE GARVEY TUBE PH, BODY FLUID LACTATE DEHYDROGENASE, BODY FLUID Narrative: The following orders were created for panel order Lactate Dehydrogenase, Body Fluid. Procedure Abnormality Status --------- ------ Lactate Dehydrogenase, B...[[id number]] In process Please view results for these tests on the individual orders. GLUCOSE, BODY FLUID Narrative: The following orders were created for panel order Glucose, Body Fluid. Procedure Abnormality Status --------- ------ Glucose, Body Fluid[[id number]] In process Please view results for these tests on the individual orders. PROTEIN, TOTAL, BODY FLUID Narrative: The following orders were created for panel order Protein, Total, Body Fluid. Procedure Abnormality Status --------- ------ Protein, Total, Body Fluid[[id number]] In process Please view results for these tests on the individual orders. BODY FLUID CELL COUNT WITH DIFFERENTIAL Narrative: The following orders were created for panel order Body Fluid Cell Count With Differential. Procedure Abnormality Status --------- ------ Body Fluid Cell Count[[id number]] In process Body Fluid Differential[[id number]] In process Please view results for these tests on the individual orders. ALBUMIN, BODY FLUID Narrative: The following orders were created for panel order Albumin, Body Fluid. Procedure Abnormality Status --------- ------ Albumin, Body Fluid[[id number]] In process Please view results for these [...] Yohana Huang 10/04/2024 2:28 PM Dictation workstation: [id number] Procedures Medical Decision Making Patient is a 59-year-old male with a hx of cirrhosis who presents to the emergency department with a chief complaint of abdominal pain from [facility]. He reports increased abdominal pain that he describes as generalized, states that his abdomen is distended. Recently had a paracentesis performed at [facility] on September 29. Patient reports that he [...] Oleary PA-C 10/04/24 1737 documented in this [facility] Work Phone: 1(356) 168-752402-26-2025 Evaluation note* Diagnosis Onset Date Resolution Status Admit Date Abdominal ascites acute Februar y 2024 9:35am Clostridium difficile colitis acute October 29, 2024 12:43am History of uric acid staghor n calculus acute October 29, 2024 12:43am Hyponatremia acute October 29, 2024 12:43am Leukocytosis acute October 29, 2024 12:43am Obesity (BMI 30.0-34.9) acute M arch 2024 12:43am Chronic abdominal pain chronic [facility] 2024 12:43am Chronic back pain chronic October [...] November 28, 2024 4:51pm Acute kidney injury resolved January 02, 2025 6:06am Fall resolved January 02, 2025 6:06am Abnormal urinalysis acute January 09, 2025 2:16pm Acute UTI acute January 09, 2025 2:16pm ISABEL (acute kidney injury) acute January 09, 2025 2:16pm Compression fracture of thoracic spine, non-traumatic acute Ju 2024 2:16pm Lactic acidosis acute January 09, 2025 2:16pm Leukocytosis acute January 09 2:16pm Metabolic acidosis acute January 092024 2:16pm Sepsis acute January 09, 2025 2:16pm Spinal stenosis, lumbar region with neurogenic claudication acute January 09, 2025 2 :16pm Umbilical hernia acute January 2:16pm [facility] Work Phone: 1(306) 271-330702-26-2025 Procedure note [facility] Medical Records Department [facility] [place] [address] Operative Report 09/29/24 1048 MR#: [id number] Acct: [id number] Name: FRANKLIN ARCHULETA Rep #:[id number] : 1965 59 From: Jasmine carranza NP DIRECTOR INSTRUMENTATION-C PCP: Care Physician,No Primary Status :REG CLI Location: US Problems Associated Problem List Diagnoses (1) Abdominal ascites: Multi Select Codes Radiology Radiology US Procedures: 49655 Paracentesis Operative Report (Standard) Operative Information Date of Procedure: 09/29/24 Pre-Operative Diagnosis: Abdominal ascites Post-Operative Diagnosis: Abdominal ascites Surgery/Procedure Performed: Ultrasound-guided paracentesis wire basket maker: No Type of Anesthesia: Local Procedure Start Time: 09:55 Procedure Stop Time: 10:17 Select all DRAINS/GRAFTS/IMPLANTS that apply: None Estimated Blood Loss: 0 Specimen collected: No Description of surgery: PROCEDURE: Ultrasound guided paracentesis ORDERING PROVIDER: Diane Guillen NP INDICATION: Male, 59 years old. Abdominal ascites. PROVIDER: Jasmine Morocho CNP TECHNIQUE: The risks, benefits, and alternatives to [...] the peritoneal cavity was accessed with a 5-Italian paracentesis needle/catheter system. The trocar was removed. [...] 09/29/24 1053 Cosigner Signature (if applicable): CC: MOE-Pastora Morocho; No Primary Care Physician; DIANE GUILLEN~ Signed [facility]02-02-2025 Evaluation note* Diagnosis Onset Date Resolution Status [...] inactive ua2024 1:46am Chronic hypotension inactive u ace2024 1:46am Hepatic encephalopathy inactive 2024 1:46am Hyperbilirubinemia inactive 2024 1:46am Hypotension inactive September 05, 2024 1:46am 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) inactive September 05 1:46am Obesity (BMI 30-39.9) inactive Feb ruary 2024 1:46am ABBY on CPAP inactive September 05, 2024 1:46am Cirrhosis of liver deleted 2024 1:46am Abdominal ascites acute uar y 2024 9:35am Clostridium difficile colitis acute October 29, 2024 12:43am History of uric acid staghor n calculus acute October 29, 2024 12:43am Hyponatremia acute October 29, 2024 12:43am Leukocytosis acute October 29, 2024 12:43am Obesity (BMI 30.0-34.9) acute M arch 2024 12:43am Chronic abdominal pain chronic [facility] 2024 12:43am Chronic back pain chronic October [...] 6:06am Fall acute January 02, 2025 6:06am [facility] Work Phone: 1(742) 670-593602-02-2025 Evaluation note* Diagnosis Onset Date Resolution Status Admit Date Ambulatory dysfunction acute 2024 1:46am Generalized weakness acute uary 2024 1:46am Staghorn calculus acute 2024 1:46am Acute cystitis with hematuria resolv ed September 05, 2024 1:46am Impaired renal function resolved F ebru2024 1:46am Lactic acidosis resolved September 05, 2024 1:46am Leukocytosis resolved September 1:46am Metabolic encephalopathy resolved September 05, 2024 1:46am ISABEL (acute kidney injury) inactive September 05, 2024 1:46am Chronic back pain inactive uar 2024 1:46am Chronic hypotension inactive ace2024 1:46am Hepatic encephalopathy inactive 2024 1:46am [...] 2024 12:43am Chronic abdominal pain chronic [facility] 2024 12:43am Chronic back pain chronic October [...] November 28, 2024 4:51pm Acute kidney injury resolved January 02, 2025 6:06am Fall resolved January 02, 2025 6:06am Abnormal urinalysis acute January 09, 2025 2:16pm Acute UTI acute January 09, 2025 2:16pm ISABEL (acute kidney injury) acute January 09, 2025 2:16pm Compression fracture of thor acic spine, non-traumatic acute January 09, 2 025 2:16pm Sepsis acute January 09, 2025 2:16pm [facility] Work Phone: 1(320) 796-998701-27-2025 Evaluation note* Diagnosis Onset Date Resolution Status Admit Date ISABEL (acute kidney injury) inactive August 29, 2024 10:09pm Hepatic encephalopathy inactive [facility] 2024 10:09pm Hypotension inactive August 29, 2024 10:09pm Ambulatory dysfunction acute Fe bruary 2024 1:46am Generalized weakness acute Febr uary 2024 1:46am Staghorn calculus acute Februar 2024 1:46am Acute cystitis with hematuria resolv ed September 05, 2024 1:46am Impaired renal function resolved F ebru2024 1:46am Lactic acidosis resolved September 05, 2024 1:46am Leukocytosis resolved September 1:46am Metabolic encephalopathy resolved September 05, 2024 1:46am ISABEL (acute kidney injury) inactive September 05, 2024 1:46am Chronic back pain inactive ua2024 1:46am Chronic hypotension inactive ace2024 1:46am Hepatic encephalopathy inactive 2024 1:46am Hyperbilirubinemia inactive 2024 1:46am Hypotension inactive September 05, 2024 1:46am 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) inactive September 05 1:46am Obesity (BMI 30-39.9) inactive Sep 1:46am ABBY on CPAP inactive September 05, 2024 1:46am Cirrhosis of liver deleted 2024 1:46am Abdominal ascites acute uar y 2024 9:35am [facility] Work Phone: 1(113) 802-534601-27-2025 Evaluation note* Diagnosis Onset Date Resolution Status Admit Date ISABEL (acute kidney injury) inactive August 29, 2024 10:09pm Hepatic encephalopathy inactive [facility] 2024 10:09pm Hypotension inactive August 29, 2024 10:09pm Ambulatory dysfunction acute Fe bruary 2024 1:46am Generalized weakness acute Febr uary 2024 1:46am Staghorn calculus acute Februar y 2024 1:46am Acute cystitis with hematuria resolv ed September 05, 2024 1:46am Impaired renal function resolved ebru2024 1:46am Lactic acidosis resolved September 05, 2024 1:46am Leukocytosis resolved September 1:46am Metabolic encephalopathy resolved September 05, 2024 1:46am ISABEL (acute kidney injury) inactive September 05, 2024 1:46am Chronic back pain inactive 2024 1:46am Chronic hypotension inactive Febru ace 2024 1:46am Hepatic encephalopathy inactive 2024 1:46am Hyperbilirubinemia inactive 2024 1:46am Hypotension inactive September 05, 2024 1:46am 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) inactive September 05 1:46am Obesity (BMI 30-39.9) inactive Sep ru2024 1:46am ABBY on CPAP inactive September 05, 2024 1:46am Cirrhosis of liver deleted 2024 1:46am Abdominal ascites acute 2024 9:35am Acidosis, lactic acute October 292024 12:43am Acute hypotension acute October 032024 12:43am Acute UTI acute October 29 12:43am Diarrhea acute October 29 12:43am History of uric acid staghor n calculus acute October 29, 2024 12:43am Leukocytosis acute October 29, 2024 12:43am Obesity (BMI 30.0-34.9) acute arch 2024 12:43am Sepsis acute October 29 12:43am Chronic abdominal pain chronic [facility] 2024 12:43am Chronic back pain chronic October 032024 12:43am [facility] Work Phone: 1(632) 411-575201-27-2025 Evaluation note* Diagnosis Onset Date Resolution Status [...] 2024 1:46am Chronic back pain inactive uar y 2024 1:46am Chronic hypotension inactive Febru ace 2024 1:46am Hepatic encephalopathy inactive Fe bruary 2024 1:46am Hyperbilirubinemia inactive 2024 1:46am Hypotension inactive September 05, 2024 1:46am 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) inactive September 05 1:46am Obesity (BMI 30-39.9) inactive b ruary 2024 1:46am ABBY on CPAP inactive September 05, 2024 1:46am Cirrhosis of liver deleted 2024 1:46am Abdominal ascites acute uar 2024 9:35am Acidosis, lactic acute October 292024 [...] 29 12:43am Chronic abdominal pain chronic [facility] 2024 12:43am Chronic back pain chronic October 032024 12:43am [facility] Work Phone: 1(284) 308-944801-27-2025 Evaluation note* Diagnosis Onset Date Resolution Status Admit Date ISABEL (acute kidney injury) inactive August 29, 2024 10:09pm Hepatic encephalopathy inactive Ja nuary 2024 10:09pm Hypotension inactive August 29, 2024 10:09pm Ambulatory dysfunction acute Fe 2024 1:46am Generalized weakness acute uary 2024 1:46am Staghorn calculus acute Februar [...] Febru ace 2024 1:46am Hepatic encephalopathy inactive Fe bruary 2024 1:46am Hyperbilirubinemia inactive ua ry 2024 1:46am Hypotension inactive September 05, 2024 1:46am 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) inactive September 05 1:46am Obesity (BMI 30-39.9) inactive Feb ruary 2024 1:46am ABBY on CPAP inactive September 05, 2024 1:46am Cirrhosis of liver deleted 2024 1:46am Abdominal ascites acute uar y 2024 9:35am Clostridium difficile colitis acute October 29, 2024 12:43am History of uric acid staghor n calculus acute October 29, 2024 12:43am Hyponatremia acute October 29, 2024 12:43am Leukocytosis acute October 29, 2024 12:43am Obesity (BMI 30.0-34.9) acute M arch 2024 12:43am Chronic abdominal pain chronic [facility] 2024 12:43am Chronic back pain chronic October 032024 12:43am Acidosis, lactic inactive October 292024 12:43am Acute hypotension inactive October 032024 12:43am Acute UTI inactive October 29 12:43am Diarrhea inactive October 29 12:43am Sepsis inactive October 29 12:43am ABLA (acute blood loss anemia) acute November 21, 2024 4:28am Ambulatory dysfunction acute Ap ril 2024 4:28am Generalized weakness acute Apri l 2024 4:28am Hematuria acute Latanya 20th, 20 25 4:28am Hepatic cirrhosis acute November 032024 4:28am Mild dehydration acute November 212024 4:28am Staghorn calculus acute November 032024 4:28am [facility] Work Phone: 1(611) 340-735301-27-2025 Evaluation note* Diagnosis Onset Date Resolution Status Admit Date ISABEL (acute kidney injury) inactive August 29, 2024 10:09pm Hepatic encephalopathy inactive Ja nuary 2024 10:09pm Hypotension inactive August 29, 2024 10:09pm Ambulatory dysfunction acute 2024 1:46am Generalized weakness acute uary 2024 1:46am Staghorn calculus acute 2024 1:46am Acute cystitis with hematuria resolv ed September 05, 2024 1:46am Impaired renal function resolved F ebru2024 1:46am Lactic acidosis resolved September 05, 2024 1:46am Leukocytosis resolved September 1:46am Metabolic encephalopathy resolved September 05, 2024 1:46am ISABEL (acute kidney injury) inactive September 05, 2024 1:46am Chronic back pain inactive 2024 1:46am Chronic hypotension inactive ace2024 1:46am Hepatic encephalopathy inactive 2024 1:46am Hyperbilirubinemia inactive 2024 1:46am Hypotension inactive September 05, 2024 1:46am 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) inactive September 05 1:46am Obesity (BMI 30-39.9) inactive Sep 1:46am ABBY on CPAP inactive September 05, 2024 1:46am Cirrhosis of liver deleted 2024 1:46am Abdominal ascites acute uar y 2024 9:35am Clostridium difficile colitis acute October 29, 2024 12:43am History of uric acid staghor n calculus acute October 29, 2024 12:43am Hyponatremia acute October 29, 2024 12:43am Leukocytosis acute October 29, 2024 12:43am Obesity (BMI 30.0-34.9) acute M arch 2024 12:43am Chronic abdominal pain chronic [facility] 2024 12:43am Chronic back pain chronic October [...] infection) resolv ed November 28, 2024 4:51pm [facility] Work Phone: Discharge summary Author Herberth Carlson [facility] Note Date/Time November 21, 2024 4:1 6am [facility] Medical Records Department [address] [place] [address] Emergency Department Summary 11/21/24 MR#: [id number] Acct: [id number] Name: FRANKLIN ARCHULETA Rep #:[id number] : 1965 59 From: [...] discontinue his lactulose. He was recently admitted [facility] for cirrhosis and other issues, he states [...] toilet after multiple attempts over couple hours. [facility] Medical History Diarrhea Sepsis Acidosis, lactic Acute [...] (Auto) 68.7 Lymph % (Auto) 13.9 L [place] % (Auto) 9.2 Eos % (Auto) 7.2 [...] process. Follow-up to resolution recommended. Reading [facility] Management Discussion w/another healthcare provider: Hospitalist Discharge [...] Primary [Primary Care Provider] - Print Language: Marshallese Disposition Disposition: Acute Care Hospital [facility] What to do if you have Problems For any increased pain, shortness of breath, bleeding, nausea or vomiting, chestpain, or any unexpected problems, contact your Primary Care Provider. Call [facility] ([phone]) or report to the closest Emergency Room. Call 911 if necessary. 11/21/24 0411 <Electronically signed by Herberth Carlson MD> Cosigner Signature (if applicable): CC: No Primary Care Physician ~ Signed [facility] Work Phone: Discharge summary Author Mina Jasmyncliff [facility] Note Date/Time December 30, 2024 5:19a m [facility] Medical Records Department [address] [place] [address] Emergency Department Summary 12/30/24 MR#: [id number] Acct: [id number] Name: FRANKLIN ARCHULETA Rep #:[id number] : 1965 59 From: Mina Blood DO PCP: Josy Elias NP-C Status:REG E R Location: ED HPI History [...] recent trauma prior to the pain beginning. [facility] Medical History Weakness Diarrhea Sepsis Acidosis, lactic [...] mg tablet (Xifaxan) 550 mg PO BID alisa ea #60 tabs 09/02/24 11/28/24 Rx insulin [...] (Auto) 69.7 Lymph % (Auto) 14.0 L [place] % (Auto) 9.1 Eos % (Auto) 6.2 [...] Hi Sens 2 Hr 20 Urine Color Lexis Urine Clarity Cloudy Urine pH 6.5 Ur [...] No evidence of acute disease. Reading Location: [facility] Chest x-ray as interpreted by the [...] you have any further concerns Print Language: Marshallese Disposition Disposition: Home, Self Care What to do if you have Problems For any increased pain, shortness of breath, bleeding, nausea or vomiting, chestpain, or any unexpected problems, contact your Primary Care Provider. Call [facility] ([phone]) or report to the closest Emergency Room. Call 911 if necessary. 12/30/24 0519 <Electronically signed by Mina Blood DO> Cosigner Signature (if applicable): CC: YG Elias ~ Signed [facility] Work Phone: Discharge summary Author Roddy Reeves [facility] Note Date/Time January 02, 2025 6:00a m [facility] Medical Records Department [address] [place] [address] Emergency Department Summary 01/02/25 MR#: [id number] Acct: [id number] Name: FRANKLIN ARCHULETA Rep #:[id number] : [...] was here recently and was sent home. [facility] Medical History Weakness Diarrhea Sepsis Acidosis, lactic [...] mg tablet (Xifaxan) [address] [facility] ea #60 tabs 09/02/24 11/28/24 Rx insulin [...] Patient following commands that he was at [facility] that wewere in the end of December [...] (Auto) 68.0 Lymph % (Auto) 12.2 L [place] % (Auto) 11.9 H Eos % (Auto) [...] insufficiency fracture again noted, unchanged. Reading Location: [facility] Brain CT 01/02/25 03:55 IMPRESSION: No intracranial hemorrhage, mass effect or calvarial fracture. Moderate volume loss, atrophy again noted. Mild left maxillary sinus disease appears mildly decreased from the prior study. Reading Location: [facility] Cervical Spine CT 01/02/25 03:55 IMPRESSION: No fracture or malalignment. Multilevel spondylosis/discogenic change greatest at C5-6 Reading Location: [facility] Discharge Plan Triage Chief Complaint: Weakness [...] NP-C [Primary Care Provider] - Print Language: Marshallese Disposition Disposition: Acute Care Hospital [facility] What to do if you have Problems For any increased pain, shortness of breath, bleeding, nausea or vomiting, chestpain, or any unexpected problems, contact your Primary Care Provider. Call [facility] ([phone]) or report to the closest Emergency Room. Call 911 if necessary. 01/02/25 0600 <Electronically signed by Roddy Reeves DO> Cosigner Signature (if applicable): CC: YG Elias ~ Signed [facility] Work Phone: Evaluation note* Diagnosis Other ascites- Primary Abdominal pain, generalized Cirrhosis of liver with ascites, unspecified hepatic cirrhosis type (Multi) Peripheral edema Edema Coagulopathy (Multi) Other and unspecified coagulation defects Hyperbilirubinemia Disorders of bilirubin excretion documented in this encounter [facility] Work Phone: Evaluation note* Diagnosis Metabolic dysfunction-associated steatohepatitis (MASH)- Primary [facility] Diagnosis Liver transplant candidate- Primary Metabolic dysfunction-associated steatohepatitis (MASH) [facility] Pre-transplant evaluation for liver transplant- Primary [facility]* Diagnosis Liver transplant candidate- Primary Pre-operative clearance Preoperative examination, unspecified [facility] Diagnosis Screening for genitourinary condition Screening for other and unspecified genitourinary condition [facility] Author Buster Fuchs [facility] Note Date/Time January 02, 2025 6:44a m [facility] Medical Records Department [address] [place] [address] H&P Exam - Hospitalist 01/02/25 0556 MR#: [id number] Acct: [id number] Name: FRANKLIN ARCHULETA Rep #:[id number] : 1965 59 From: Buster duarte MD PCP: YG Pena Status:ADM I N Location: [place] [address] HPI - General General Date of Admission: 01/02/25 HPI Narrative FRANKLIN ARCHULETA, is a 59 M who presents to the hospital with weakness and a fall. He did not hit his head or lose consciousness. He has had an extensive recent medical history with cirrhosis and UTI with staghorn calculus, he was in the ICUin October. 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 Was not considered to be a liver transplant candidate and was placed on anticoagulation. He has had a couple of readmissions for weakness and debility. [place] to possibly have aUTI given a staghorn [...] Heis receiving potassium infusion in the ER. [facility] Medical History Weakness Diarrhea [...] (Auto) 68.0, Lymph % (Auto) 12.2 L, [place] % (Auto) 11.9 H, Eos % (Auto) [...] insufficiency fracture again noted, unchanged. Reading Location: [facility] Brain CT 01/02/25 03:55 IMPRESSION: No intracranial hemorrhage, mass effect or calvarial fracture. Moderate volume loss, atrophy again noted. Mild left maxillary sinus disease appears mildly decreased from the prior study. Reading Location: [facility] Cervical Spine CT 01/02/25 03:55 IMPRESSION: No fracture or malalignment. Multilevel spondylosis/discogenic change greatest at C5-6 Reading Location: [facility] Assessment & Plan Assessment/Plan (1) Fall: [...] once verified Charges/Coding Visit Charges Inpatient E&M: 78638 Init Hosp L2 01/02/25 0644 <Electronically signed by Buster Fuchs MD> Cosigner Signature (if applicable): CC: YG Elias; Dr. Buster Fuchs MD~ Signed [facility] Work Phone: Hospital Discharge instructions* Attachments The following attachments cannot be sent through Care Everywhere. * Cirrhosis (Marshallese) * Abdominal pain (Marshallese) documented in this [facility] Work Phone: Hospital Discharge instructions Additional [...] the ER should [facility] have any [facility] Work Phone: Reason for referral (narrative)No reason for referral information availableWOhio[facility] Work Phone: Summary Purpose Family History No Family History Records Found Relationship Condition Age at Onset Recorded Date/T edis mother Cardiac disease Unknown Hypertension Unknown Coronary artery disease Unknown Myocardial infarction Unknown father Hypertension Unknown Cardiac disease Unknown Heart failure Unknown Advance Directives No Advanced Directives Records Found Date Activated Date Inactivated Comments 11/11/2024 7:22 AM 11/18/2024 3:02 PM Question Answer Comments Full Code Order Discussed With: Patient Advance Directive Response Recorded Date/ Time Living Will No August 21 2:51pm Power of Chief Growth Officer No August 21, 2024 2:51pm Living Will No August 30 12:39am Power of Chief Growth Officer No August 30, 2024 12:39am Living Will No September 05 4:42am Power of Chief Growth Officer No September 05, 2024 4:42am Advance Directive Response Recorded Date/ Time Living Will No August 21 2:51pm Do you have a Healthcare Power of Chief Growth Officer? No August 21, 2024 2:51pm Living Will No August 30 12:39am Do you have a Healthcare Power of Chief Growth Officer? No August 30, 2024 12:39am Living Will No September 05 4:42am Do you have a Healthcare Power of Chief Growth Officer? No September 05, 2024 4:42am Living Will No October 28, 2024 5:24pm Do you have a Healthcare Power of Chief Growth Officer? No October 28, 2024 5:24pm Advance Directive Response Recorded Date/ Time Living Will No August 21 2:51pm Do you have a Healthcare Power of Chief Growth Officer? No August 21, 2024 2:51pm Living Will No August 30 12:39am Do you have a Healthcare Power of Chief Growth Officer? No August 30, 2024 12:39am Living Will No September 05 4:42am Do you have a Healthcare Power of Chief Growth Officer? No September 05, 2024 4:42am Living Will No October 29, 2024 1:46am Do you have a Healthcare Power of Chief Growth Officer? No October 29, 2024 1:46am Date Activated Date Inactivated Comments 11/11/2024 7:22 AM Question Answer Comments Full Code Order Discussed With: Patient Date Activated Date Inactivated Comments 11/11/2024 7:22 AM Advance Directive Response Recorded Date/ Time Living Will No August 21 2:51pm Do you have a Healthcare Power of Chief Growth Officer? No August 21, 2024 2:51pm Living Will No August 30 12:39am Do you have a Healthcare Power of Chief Growth Officer? No August 30, 2024 12:39am Living Will No September 05 4:42am Do you have a Healthcare Power of Chief Growth Officer? No September 05, 2024 4:42am Living Will No October 29, 2024 1:46am Do you have a Healthcare Power of Chief Growth Officer? No October 29, 2024 1:46am Living Will Yes November 21, 2024 1:32am Do you have a Healthcare Power of Chief Growth Officer? Yes November 21, 2024 1:32am Name of Medical Power of Chief Growth Officer anne Hernandez November 21, 2024 1:32am Advance Directive Response Recorded Date/ Time Living Will No August 21 2:51pm Do you have a Healthcare Power of Chief Growth Officer? No August 21, 2024 2:51pm Living Will No August 30 12:39am Do you have a Healthcare Power of Chief Growth Officer? No August 30, 2024 12:39am Living Will No September 05 4:42am Do you have a Healthcare Power of Chief Growth Officer? No September 05, 2024 4:42am Living Will No October 29, 2024 1:46am Do you have a Healthcare Power of Chief Growth Officer? No October 29, 2024 1:46am Living Will Yes November 21, 2024 5:32am Do you have a Healthcare Power of Chief Growth Officer? Yes November 21, 2024 5:32am Name of Medical Power of Chief Growth Officer anne Hernandez November 21, 2024 5:32am Do you have a Healthcare Power of Chief Growth Officer? No November 28, 2024 5:49pm Advance Directive Response Recorded Date/ Time Living Will No August 30 12:39am Do you have a Healthcare Power of Chief Growth Officer? No August 30, 2024 12:39am Living Will No September 05 4:42am Do you have a Healthcare Power of Chief Growth Officer? No September 05, 2024 4:42am Living Will No October 29, 2024 1:46am Do you have a Healthcare Power of Chief Growth Officer? No October 29, 2024 1:46am Living Will Yes November 21, 2024 5:32am Do you have a Healthcare Power of Chief Growth Officer? Yes November 21, 2024 5:32am Name of Medical Power of Chief Growth Officer héctor Hernandezgabrielle November 21, 2024 5:32am Do you have a Healthcare Power of Chief Growth Officer? No November 28, 2024 5:49pm Advance Directive Response Recorded Date/ Time Living Will No August 30 12:39am Do you have a Healthcare Power of Chief Growth Officer? No August 30, 2024 12:39am Living Will No September 05 4:42am Do you have a Healthcare Power of Chief Growth Officer? No September 05, 2024 4:42am Living Will No October 29, 2024 1:46am Do you have a Healthcare Power of Chief Growth Officer? No October 29, 2024 1:46am Living Will Yes November 21, 2024 5:32am Do you have a Healthcare Power of Chief Growth Officer? Yes November 21, 2024 5:32am Name of Medical Power of Chief Growth Officer anne Hernandez November 21, 2024 5:32am Do you have a Healthcare Power of Chief Growth Officer? No November 28, 2024 5:49pm Do you have a Healthcare Power of Chief Growth Officer? No December 26, 2024 10:02am Advance Directive Response Recorded Date/ Time Living Will No August 30 12:39am Do you have a Healthcare Power of Chief Growth Officer? No August 30, 2024 12:39am Living Will No September 05 4:42am Do you have a Healthcare Power of Chief Growth Officer? No September 05, 2024 4:42am Living Will No October 29, 2024 1:46am Do you have a Healthcare Power of Chief Growth Officer? No October 29, 2024 1:46am Living Will Yes November 21, 2024 5:32am Do you have a Healthcare Power of Chief Growth Officer? Yes November 21, 2024 5:32am Name of Medical Power of Chief Growth Officer anne Hernandez November 21, 2024 5:32am Do you have a Healthcare Power of Chief Growth Officer? No November 28, 2024 5:49pm Do you have a Healthcare Power of Chief Growth Officer? No December 26, 2024 10:02am Do you have a Healthcare Power of Chief Growth Officer? No December 30, 2024 1:06am Advance Directive Response Recorded Date/ Time Do you have a Healthcare Power of Chief Growth Officer? No January 02, 2025 2:59am Living Will No September 05 4:42am Do you have a Healthcare Power of Chief Growth Officer? No September 05, 2024 4:42am Living Will No October 29, 2024 1:46am Do you have a Healthcare Power of Chief Growth Officer? No October 29, 2024 1:46am Living Will Yes November 21, 2024 5:32am Do you have a Healthcare Power of Chief Growth Officer? Yes November 21, 2024 5:32am Name of Medical Power of Chief Growth Officer anne Hernandez November 21, 2024 5:32am Do you have a Healthcare Power of Chief Growth Officer? No November 28, 2024 5:49pm Do you have a Healthcare Power of Chief Growth Officer? No December 26, 2024 10:02am Do you have a Healthcare Power of Chief Growth Officer? No December 30, 2024 1:06am Advance Directive Response Recorded Date/ Time Do you have a Healthcare Power of Chief Growth Officer? No January 02, 2025 8:14am Living Will No September 05 4:42am Do you have a Healthcare Power of Chief Growth Officer? No September 05, 2024 4:42am Living Will No October 29, 2024 1:46am Do you have a Healthcare Power of Chief Growth Officer? No October 29, 2024 1:46am Living Will Yes November 21, 2024 5:32am Do you have a Healthcare Power of Chief Growth Officer? Yes November 21, 2024 5:32am Name of Medical Power of Chief Growth Officer anne Hernandez November 21, 2024 5:32am Do you have a Healthcare Power of Chief Growth Officer? No November 28, 2024 5:49pm Do you have a Healthcare Power of Chief Growth Officer? No December 26, 2024 10:02am Do you have a Healthcare Power of Chief Growth Officer? No December 30, 2024 1:06am Advance Directive Response Recorded Date/ Time Do you have a Healthcare Power of Chief Growth Officer? No January 02, 2025 8:14am Living Will No September 05 4:42am Do you have a Healthcare Power of Chief Growth Officer? No September 05, 2024 4:42am Living Will No October 29, 2024 1:46am Do you have a Healthcare Power of Chief Growth Officer? No October 29, 2024 1:46am Living Will Yes November 21, 2024 5:32am Do you have a Healthcare Power of Chief Growth Officer? Yes November 21, 2024 5:32am Name of Medical Power of Chief Growth Officer anne Hernandez November 21, 2024 5:32am Do you have a Healthcare Power of Chief Growth Officer? No November 28, 2024 5:49pm Do you have a Healthcare Power of Chief Growth Officer? No December 26, 2024 10:02am Do you have a Healthcare Power of Chief Growth Officer? No December 30, 2024 1:06am Do you have a Healthcare Power of Chief Growth Officer? No January 09, 2025 10:10am Advance Directive Response Recorded Date/ Time Do you have a Healthcare Power of Chief Growth Officer? No January 02, 2025 8:14am Living Will No October 29, 2024 1:46am Do you have a Healthcare Power of Chief Growth Officer? No October 29, 2024 1:46am Living Will Yes November 21, 2024 5:32am Do you have a Healthcare Power of Chief Growth Officer? Yes November 21, 2024 5:32am Name of Medical Power of Chief Growth Officer anne Hernandez November 21, 2024 5:32am Do you have a Healthcare Power of Chief Growth Officer? No November 28, 2024 5:49pm Do you have a Healthcare Power of Chief Growth Officer? No December 26, 2024 10:02am Do you have a Healthcare Power of Chief Growth Officer? No December 30, 2024 1:06am Do you have a Healthcare Power of Chief Growth Officer? No January 09, 2025 3:31pm Chief Complaint and Reason for Visit Chief [...] September 12:41pm SEPSIS WITH STAGHORN CALCULI September 72024 [...] h2024 9:36am SEPSIS WITH STAGHORN CALCULI September h2024 5:04pm SEPSIS WITH STAGHORN CALCULI September 12:41pm SEPSIS WITH STAGHORN CALCULI September 4:50pm SEPSIS WITH STAGHORN CALCULI September 10:36am SEPSIS WITH STAGHORN CALCULI September 10:39am SEPSIS WITH STAGHORN CALCULI September 132024 9:27am SEPSIS WITH STAGHORN CALCULI September 142024 9:57am FLUID RETENTION September 29, 2024 9:35am FLUID RETENTION September 29, 2024 10:48am SEPSIS, UTI, DIARRHEA & ABDOMINAL PAIN M arch 2024 12:43am Reason for Visit Admit Date [...] 4:50pm SEPSIS WITH STAGHORN CALCULI September 8t 2024 10:36am SEPSIS WITH STAGHORN CALCULI September 9t [...] h2024 5:04pm SEPSIS WITH STAGHORN CALCULI September 62024 [...] d2024 7:37am SEPSIS WITH STAGHORN CALCULI September 9:00am [...] UTI AND LEFT ABDOMINAL WALL CELLULITIS M 2024 11:10am Reason for Visit Admit Date [...] September 7:37am SEPSIS WITH STAGHORN CALCULI September d2024 [...] SEPSIS, UTI, DIARRHEA & ABDOMINAL PAIN A pri2024 6:50pm SEPSIS, UTI, DIARRHEA & ABDOMINAL PAIN [...] 2024 4:50pm SEPSIS WITH STAGHORN CALCULI September 8t 2024 10:36am SEPSIS WITH STAGHORN CALCULI September 9t 2024 10:39am SEPSIS WITH STAGHORN CALCULI September [id number] [...] September 7:37am SEPSIS WITH STAGHORN CALCULI September d2024 9:00am SEPSIS WITH STAGHORN CALCULI September 4t 2024 9:36am SEPSIS WITH STAGHORN CALCULI September 5:04pm SEPSIS WITH STAGHORN CALCULI September 62024 12:41pm SEPSIS WITH STAGHORN CALCULI September 4:50pm SEPSIS WITH STAGHORN CALCULI September 82024 [...] SEPSIS, UTI, DIARRHEA & ABDOMINAL PAIN A pri2024 6:50pm SEPSIS, UTI, DIARRHEA & ABDOMINAL PAIN A pril 9th, 2025 7:37pm Weakness November 21, 2024 4:2 8am [...] History of uric acid staghorn calculus M [facility] 2024 12:43am Hyponatremia October 29, 2024 12: [...] September 1:46am SEPSIS WITH STAGHORN CALCULI September 9:36am SEPSIS WITH STAGHORN CALCULI September 5:04pm [...] UTI AND LEFT ABDOMINAL WALL CELLULITIS M 2024 11:10am ABD PAIN December 15, 2024 10:07 am ABD PAIN December 26, 2024 9:58a m chest pain, high bs December 30, 2024 1:05a m WEAKNESS POSSIBLE UTI January 02, 2025 6:0 6am WEAKNESS POSSIBLE UTI January 03, 2025 8:3 9am WEAKNESS POSSIBLE UTI January 04, 2025 10: 14am WEAKNESS POSSIBLE UTI January 05, 2025 7:3 7am Chief Complaint Admit Date SEPSIS WITH STAGHORN CALCULI September 1:46am SEPSIS WITH STAGHORN CALCULI September 10:36am SEPSIS [...] POSSIBLE UTI January 05, 2025 7:3 7am SEPSIS January 09, 2025 2:16p m Reason for Visit Admit Date Ambulatory dysfunction [...] m Fall January 02, 2025 6:06a m Abnormal urinalysis January 09, 2025 2:16p m Acute UTI January 09, 2025 2:16p m ISABEL (acute kidney injury) January 09, 2025 2:16pm Compression fracture of thoracic spine, non-traumatic January 09, 2025 2:16pm Sepsis January 09, 2025 2:16p m Chief Complaint Admit Date FLUID RETENTION September 29, 2024 9:35am FLUID [...] POSSIBLE UTI January 05, 2025 7:3 7am SEPSIS January 09, 2025 2:16p m SEPSIS January 10, 2025 7:00a m SEPSIS January 10, 2025 6:16p m SEPSIS January 11, 2025 7:22 am SEPSIS January 11, 2025 3:10 pm SEPSIS January 11, 2025 4:34 pm SEPSIS January 12, 2025 4:46 pm SEPSIS January 13, 2025 3:17 pm SEPSIS January 14, 2025 5:06 pm SEPSIS January 15, 2025 1:21 pm SEPSIS January 16, 2025 12:3 6pm SEPSIS January 17, 2025 2:20 pm SEPSIS January 18, 2025 1:02 pm SEPSIS January 19, 2025 9:19 am SEPSIS January 20, 2025 2:36 pm SEPSIS January 21, 2025 10:0 4am Reason for Visit Admit Date Abdominal ascites September 29, 2024 9:35am Clostridium [...] m Fall January 02, 2025 6:06a m Abnormal urinalysis January 09, 2025 2:16p m Acute UTI January 09, 2025 2:16p m ISABEL (acute kidney injury) January 09, 2025 2:16pm Compression fracture of thoracic spine, non-traumatic January 09, 2025 2:16pm Lactic acidosis January 09, 2025 2:16p m Leukocytosis January 09, 2025 2:16p m Metabolic acidosis January 09, 2025 2:16p m Sepsis January 09, 2025 2:16p m Spinal stenosis, lumbar zuleyma on with neurogenic claudication January 09, 2025 2:16pm Umbilical hernia January 09, 2025 2:16p m Additional Source Comments Reason for Visit (unrecogniz ed section and content) Reason Comments Dental Clearance - Transplant Liver Specialty Diagnoses / Procedures Referred By Contac t Referred To Contact HOSP INPATIENT Diagnoses 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) Portal vein thrombosis Thrombus Procedures Evaluate and treat HOSP MAIN [id number] [id number] Phone: tel: Referral ID Status Reason Start Date Expiration Date Visits Re quested Visits Authorized [id number] 1 Reason Comments Abdominal Pain Patient [...] On Fri10/04/24 at 1230, For 1 dose 123 (Given - Provid er: Bronwyn Adam RN) morphine injection 4 mg (COMPLETED) 4 mg, intravenous, Once, On Fri10/04/24 at 1525, For 1 dose 1543 (Given - Provid er: Day Jones RN) ondansetron (Zofran) injection 4 mg (COMPLETED) 4 mg, intravenous, Once, On Fri10/04/24 at 1230, For 1 dose, When administering via IV Push, administer over 3-5 minutes. 123 (Given - Provid er: Bronwyn Adam RN) ondansetron (Zofran) injection 4 mg (COMPLETED) 4 mg, intravenous, Once, On Fri10/04/24 at 1525, For 1 dose, When administering via IV Push, administer over 3-5 minutes. 154 (Given - Provid er: Day Jones RN) ondansetron ODT (Zofran-ODT) disintegrating tablet 4 mg (COMPLETED) 4 mg, oral, Once, On Fri10/04/24 at 2115, For 1 dose 2117 (Given - Provid er: Marquita Feliz RN) oxyCODONE (Roxicodone) immediate release tablet 5 mg (COMPLETED) 5 mg, oral, Once, On Fri10/04/24 at 1905, For 1 dose, If ordered PRN for pain, nurse is permitted to administer this medication for higher pain scores based on patient preference? Yes 1928 (Given - Provid er: Day oJnes RN) spironolactone (Aldactone) split tablet 12.5 mg (COMPLETED) 12.5 mg, oral, Once, On Fri10/04/24 at 1855, For 1 dose 185 (Given - Provid er: Bronwyn Adam RN) [...] End: September 02, 2024 Dr. Rick Carlin DO Attending Provider Active Start: August 29, 2024 [...] Active St art: August 30, 2024 Dr. Yuyr Canas MD Other Provider Active S tart: [...] Start: August 31, 2024 Dr. Niranjan Li DO Attending Provider Active Start: August 31, [...] Start: September 01, 2024 Dr. Niranjan Li DO Attending Provider Active Start: September 01, [...] End: September 15, 2024 Dr. Rachel Joiner DO Emergency Provider Active Start: September 05, 2024 [...] Active St art: September 06, 2024 Dr. Yruy Canas MD Other Provider Active S tart: [...] Active Star t: September 06, 2024 Dr. Msaon Samano DO Other Provider Active St art: [...] Start: September 06, 2024 Dr. Rachel Joiner , Emergency Provider Active Start: September 06, 2024 [...] Provider Active Start: September 08, 2024 Dr. Hlil Caro DO Other Provider Active Start: September [...] Active Start: September 10, 2024 Dr. Rachel Joinre DO Emergency Provider Active Start: September 10, [...] September 10, 2024 Dr. Jae Ash DO Attending Provider Active Start: September 10, 2024 Dr. Jae Ash , Other Provider Active Start: September 10, 2024 [...] Active Start: September 12, 2024 Dr. Jae Mosteller , DO Attending Provider Active Start: September [...] 13, 2024 Dr. Hill Caro , DO Other [...] t: September 13, 2024 Dr. Jae Ash DO Other Provider Active Start: September 13, 2024 Team Status: Active Member Role Status Dates No Primary Care Physician Primary Care Provider Active Start: September 14, 2024 Dr. Rachel Joiner , Emergency Provider Active Start: September 14, 2024 Dr. Hill Caro DO Admit Provider Active Start: September 14, 2024 Dr. Hill Caro DO Other Provider Active Start: September 14, 2024 Dr. Anurag Irene MD Other Provider Active Sta rt: September 14, 2024 Dr. Boone Izquierdo DO Attending Provider Active Start: September 14, 2024 Dr. Boone Izquierdo DO Other Provider Active Star t: September 14, 2024 Dr. Jae Ash DO Other Provider Active Start: September 14, [...] September 29, 2024 End: September 29, 2024 MINDY CONTRERAS Attending Provider Active Start: 2024 End: September 29, 2024 DIANE, BILLKarma Referring Provider Active Start: 2024 End: September 29, 2024 Team Status: Active Member Role Status Dates No Primary Care Physician Primary Care Provider Active Start: September 29, 2024 MINDY CONTRERAS Referring Provider Active Start: 2024 DIANE BILLKarma Other Provider Active Start: 2024 Jasmine Morocho DIRECTOR INSTRUMENTATION, DIRECTOR INSTRUMENTATION-C Attending Provider Active Start: September 29, 2024 [...] Daniel Garza MD Other Provider Active Start: [facility] 2024 End: November 11, 2024 Dr. Zachariah Glover MD Other Provider Active Sta rt: October 29, 2024 End: November 11, 2024 Dr. Scott Weston , Other Provider Active Sta rt: October 29, 2024 End: November 11, 2024 Yue Delgadillo DIRECTOR INSTRUMENTATION, DIRECTOR INSTRUMENTATION-C Other Provider Active St art: October 29, 2024 End: November 11, 2024 Dr. Gwendolyn Logan MD Other Provider Active Sta rt: October 29, 2024 Dr. Stella Mosher MD Other Provider Active Sta rt: October 29, 2024 Dr. Pato Venegas MD Other Provider Active Star t: October 29, 2024 Dr. Evler Mancilla MD Other Provider Active St art: October 29, 2024 Dr. Nadeem Au MD Other Provider Active Star t: October 29, 2024 Dr. Mason Samano , Other Provider Active St art: October 29, [...] Active Start: October 29, 2024 Dr. Hill aCro DO Referring Provider Active Start: October 29, 2024 Dr. Hill Caro DO Other Provider Active Start: October 29, 2024 Dr. John Paul Masterson MD Other Provider Active Start: October 29, 2024 Dr. Christian Abdi MD Other Provider Active Start: October 29, 2024 Dr. Juarez Baird MD Other Provider Active Star t: October 29, 2024 Dr. Bola Meraz DO Attending Provider Active S tart: October 29, 2024 Dr. Bola Meraz DO Other Provider Active Start : October 29, [...] tart: October 30, 2024 Dr. Hill Caro , Admit Provider Active Start: October 30, 2024 Dr. Hill Caro , Other Provider Active Start: October 30, 2024 Dr. John Paul Masterson MD Other Provider Active Start: October 30, 2024 Dr. Christian Abdi MD Other Provider Active Start: October 30, 2024 Dr. Juarez Baird MD Other Provider Active Star t: October 30, 2024 Dr. Bola Meraz , Other Provider Active Start : October 30, [...] t: October 30, 2024 Dr. Mason Samano , Other Provider Active St art: October 30, 2024 Dr. Anel Casey MD Other Provider Active Start: October 30, 2024 Dr. Robin Nobles MD Other Provider Active St art: October 30, 2024 Dr. Kenneth Noland , Other Provider Active Start: October 30, 2024 [...] Star t: November 07, 2024 Dr. Buster uFchs MD Other Provider Active Start: November 07, [...] November 10, 2024 Dr. Hill Caro , DO Admit Provider Active Start: November 10, 2024 [...] Sta rt: November 10, 2024 Yue Delgadillo DIRECTOR INSTRUMENTATION, DIRECTOR INSTRUMENTATION-C Other Provider Active St art: November 10, 2024 Team Status: Active Member Role Status Dates No Primary Care Physician Primary Care Provider Active Start: November 21, 2024 Dr. Herberth Carlson MD Emergency Provider Active Start: November 21, 2024 Dr. Jae Ash DO Admit Provider Active Start: November 21, 2024 Dr. Jae Ash DO Attending Provider Active Start: November 21, 2024 Dr. Jae Ash DO Other Provider Active Start: November 21, 2024 Team Status: Active Member Role Status Dates No Primary Care Physician Primary Care Provider Active Start: November 22, 2024 Dr. Herberth Carlson MD Emergency Provider Active Start: November 22, 2024 Dr. Jae Ash DO Admit Provider Active Start: November 22, 2024 Dr. Jae Ash DO Other Provider Active Start: November 22, [...] November 23, 2024 Dr. Jae Ash DO Admit Provider Active Start: November 23, [...] End: November 25, 2024 Dr. Jae Ash DO Admit Provider Active Start: November 23, 2024 End: November 25, 2024 Dr. Jae Ash DO [...] Start: November 24, 2024 Dr. Jae Ash DO Admit Provider Active Start: November 24, 2024 Dr. Jae Ash DO Other Provider Active Start: November 24, [...] December 07, 2024 End: December 07, 2024 Shiftman Relationship Specialty Start Date End Date Maurice Fitch MD [address] [place] [phone] PCP - General Internal Medicine 09/21/24 Team [...] tart: November 01, 2024 Dr. Hill Caro , Admit Provider Active Start: November 01, 2024 Dr. Hill Caro , Other Provider Active Start: November 01, 2024 [...] Team Status: Inactive Member Role Status Dates Josydominique Elias , DIRECTOR INSTRUMENTATION-C Primary Care Provider Active Start: December 15, 2024 End: December 15, 2024 Josydominique Baumannhoantoinette , DIRECTOR INSTRUMENTATION-C Attending Provider Active Start: December 15, 2024 End: December 15, 2024 Josydominique Elias , DIRECTOR INSTRUMENTATION-C Referring Provider Active Start: December 15, 2024 End: December 15, 2024 Team Status: Inactive Member Role Status Dates Josydominique Baumannhof , DIRECTOR INSTRUMENTATION-C Primary Care Provider Active Start: December 26, 2024 End: December 26, 2024 Dr. Boone Carvajal DO Emergency Provider Active Start: December 26, 2024 End: December 26, 2024 Team Status: Inactive Member Role Status Dates Josydominique Baumannhof , DIRECTOR INSTRUMENTATION-C Primary Care Provider Active Start: December 30, 2024 End: December 30, 2024 Dr. Mina Blood DO Emergency Provider Active Start: December 30, 2024 End: December 30, 2024 Team Status: Inactive Member Role Status Dates Josydominique Elias , DIRECTOR INSTRUMENTATION-C Primary Care Provider Active Start: December 26, 2024 End: December 26, 2024 Dr. Boone Carvajal DO Attending Provider Active Start: December 26, 2024 End: December 26, 2024 Dr. Boone Carvajal DO Emergency Provider Active Start: December 26, 2024 End: December 26, 2024 Team Status: Active Member Role Status Dates Josy Elias DIRECTOR INSTRUMENTATION-C Primary Care Provider Active Start: January 02, 2025 Dr. Roddy Reeves DO Emergency Provider Active Start: January 02, 2025 Dr. Buster Fuchs MD Admit Provider Active Start: January 02, 2025 Dr. Buster Fuchs MD Attending Provider Active Start: January 02, 2025 Dr. Buster Fuchs MD Other Provider Active Start: January 02, 2025 Team Status: Inactive Member Role Status Dates Josy Elias DIRECTOR INSTRUMENTATION-C Primary Care Provider Active Start: January 02, [...] Active Member Role Status Dates Josy Elias DIRECTOR INSTRUMENTATION-C Primary Care Provider Active Start: January 03, [...] Active Member Role Status Dates Josy Elias DIRECTOR INSTRUMENTATION-C Primary Care Provider Active Start: January 04, [...] Active Member Role Status Dates Josy Elias DIRECTOR INSTRUMENTATION-C Primary Care Provider Active Start: January 05, 2025 Dr. Roddy Reeves , Emergency Provider Active Start: January 05, 2025 Dr. Buster Fuchs MD Admit Provider Active Start: January 05, 2025 Dr. Buster Fuchs MD Other Provider Active Start: January 05, 2025 Dr. Hill Acuña MD Attending Provider Active Start: January 05, 2025 Dr. Hill Acuña MD Other Provider Active Star t: January 05, 2025 Team Status: Inactive Member Role Status Dates Josy Elias DIRECTOR INSTRUMENTATION-C Primary Care Provider Active Start: December 30, 2024 End: December 30, 2024 Dr. Mina Blood DO Attending Provider Active Start: December 30, 2024 End: December 30, 2024 Dr. Mina Blood DO Emergency Provider Active Start: December 30, 2024 End: December 30, 2024 Team Status: Active Member Role Status Dates Josy Elias DIRECTOR INSTRUMENTATION-C Primary Care Provider Active Start: January 09, 2025 Dr. Breann Mendez DO Emergency Provider Active S tart: January 09, 2025 Dr. Yaritza Leo DO Admit Provider Active Start : January 09, 2025 Dr. Yaritza Leo DO Attending Provider Active S tart: January 09, 2025 Team Status: Inactive Member Role Status Dates Josy Elias DIRECTOR INSTRUMENTATION-C Primary Care Provider Active Start: January 09, 2025 End: January 21, 2025 Dr. Breann Mendez DO Emergency Provider Active S tart: January 09, 2025 End: January 21, 2025 Dr. Yaritza Leo , Admit Provider Active Start : January 09, 2025 End: January 21, 2025 Dr. Yaritza Leo DO Other Provider Active Start : January 09, 2025 End: January 21, 2025 Dr. Jefferson Malave MD Other Provider Active St art: January 09, 2025 End: January 21, 2025 Dr. Aleyda Bautista MD Other Provider Active Star t: January 09, 2025 End: January 21, 2025 Dr. Anurag Irene MD Attending Provider Active Start: January 09, 2025 End: January 21, 2025 Dr. Cielo Tovar MD Other Provider Active St art: January 09, 2025 End: January 21, 2025 Team Status: Active Member Role Status Dates Josy Elias DIRECTOR INSTRUMENTATION-C Primary Care Provider Active Start: January 10, 2025 Dr. Breann Mendez DO Emergency Provider Active S tart: January 10, 2025 Dr. Yaritza Leo DO Admit Provider Active Start : January 10, 2025 Dr. Yaritza Leo DO Other Provider Active Start : January 10, 2025 Dr. John Paul Masterson MD Other Provider Active Start: January 10, 2025 Dr. Christian Abdi MD Other Provider Active Start: January 10, 2025 Dr. Juarez Baird MD Other Provider Active Star t: January 10, 2025 Dr. Bola Meraz DO Attending Provider Active S tart: January 10, 2025 Dr. Bola Meraz DO Other Provider Active Start : January 10, 2025 Dr. Hill Renee MD Other Provider Active Sta rt: January 10, 2025 Dr. Jeff Cornelius MD Other Provider Active St art: January 10, 2025 Dr. Yury Canas MD Other Provider Active S tart: January 10, 2025 Dr. Dary Lund MD Other Provider Active Start: January 10, 2025 Dr. Bharathi Trujillo MD Other Provider Active Start : January 10, 2025 Dr. Will Lobo MD Other Provider Active Start: January 10, 2025 Dr. Mina Xie MD Other Provider Active Start : January 10, 2025 Dr. Betty Pruett MD Other Provider Active Star t: January 10, 2025 Dr. Gwendolyn Logan MD Other Provider Active Sta rt: January 10, 2025 Dr. Stella Mosher MD Other Provider Active Sta rt: January 10, 2025 Dr. Pato Venegas MD Other Provider Active Star t: January 10, 2025 Dr. Elver Mancilla MD Other Provider Active St art: January 10, 2025 Dr. Nadeem Au MD Other Provider Active Star t: January 10, 2025 Dr. Mason Samano DO Other Provider Active St art: January 10, 2025 Dr. Anel Casey MD Other Provider Active Start: January 10, 2025 Dr. Robin Nobles MD Other Provider Active St art: January 10, 2025 Dr. Kenneth Noland DO Other Provider Active Start: January 10, 2025 Dr. Lupillo Robbins MD Other Provider Active Star t: January 10, 2025 Dr. Young Richardson MD Other Provider Active Sta rt: January 10, 2025 Dr. Cielo Tovar MD Referring Provider Active Start: January 10, 2025 Dr. Cielo Tovar MD Other Provider Active St art: January 10, 2025 Team Status: Active Member Role Status Dates YG Pena Primary Care Provider Active Start: January 10, 2025 Dr. Breann Mendez DO Emergency Provider Active S tart: January 10, 2025 Dr. Yaritza Leo DO Admit Provider Active Start : January 10, 2025 Dr. Yaritza Leo DO Other Provider Active Start : January 10, 2025 Dr. John Paul Masterson MD Other Provider Active Start: January 10, 2025 Dr. Christian Abdi MD Other Provider Active Start: January 10, 2025 Dr. Juarez Baird MD Other Provider Active Star t: January 10, 2025 Dr. Bola Meraz DO Other Provider Active Start : January 10, 2025 Dr. Hill Renee MD Other Provider Active Sta rt: January 10, 2025 Dr. Jeff Cornelius MD Other Provider Active St art: January 10, 2025 Dr. Yury Canas MD Other Provider Active S tart: January 10, 2025 Dr. Dary Lund MD Other Provider Active Start: January 10, 2025 Dr. Bharathi Trujillo MD Other Provider Active Start : January 10, 2025 Dr. Will Loob MD Other Provider Active Start: January 10, 2025 Dr. Mina Xie MD Other Provider Active Start : January 10, 2025 Dr. Betty Pruett MD Other Provider Active Star t: January 10, 2025 Dr. Gwendolyn Logan MD Other Provider Active Sta rt: January 10, 2025 Dr. Stella Mosher MD Other Provider Active Sta rt: January 10, 2025 Dr. Pato Venegas MD Other Provider Active Star t: January 10, 2025 Dr. Elver Mancilla MD Other Provider Active St art: January 10, 2025 Dr. Nadeem Au MD Other Provider Active Star t: January 10, 2025 Dr. Mason Samano , Other Provider Active St art: January 10, 2025 Dr. Anel Casey MD Other Provider Active Start: January 10, 2025 Dr. Robin Nobles MD Other Provider Active St art: January 10, 2025 Dr. Kenneth Noland DO Other Provider Active Start: January 10, 2025 Dr. Lupillo Robbins MD Other Provider Active Star t: January 10, 2025 Dr. Young Richardson MD Other Provider Active Sta rt: January 10, 2025 Dr. Cielo Tovar MD Attending Provider Active Start: January 10, 2025 Dr. Cielo Tovar MD Other Provider Active St art: January 10, 2025 Team Status: Active Member Role Status Dates YG Pena Primary Care Provider Active Start: January 11, 2025 Dr. Breann Mendez DO Emergency Provider Active S tart: January 11, 2025 Dr. Yaritza Leo DO Admit Provider Active Start : January 11, 2025 Dr. Yaritza Leo DO Other Provider Active Start : January 11, 2025 Dr. Cielo Tovar MD Referring Provider Active Start: January 11, 2025 Dr. Cielo Tovar MD Other Provider Active St art: January 11, 2025 Dr. Bola Meraz , Attending Provider Active S tart: January 11, 2025 Team Status: Active Member Role Status Dates YG Pena Primary Care Provider Active Start: January 11, 2025 Dr. Breann Mendez DO Emergency Provider Active S tart: January 11, 2025 Dr. Yaritza Leo DO Admit Provider Active Start : January 11, 2025 Dr. Yaritza Leo DO Other Provider Active Start : January 11, 2025 Dr. Cielo Tovar MD Attending Provider Active Start: January 11, 2025 Dr. Cielo Tovar MD Other Provider Active St art: January 11, 2025 Dr. Jefferson Malave MD Other Provider Active St art: January 11, 2025 Team Status: Active Member Role Status Dates Josy Elias DIRECTOR INSTRUMENTATION-C Primary Care Provider Active Start: January 11, 2025 Dr. Breann Mendez DO Emergency Provider Active S tart: January 11, 2025 Dr. Yaritza Leo DO Admit Provider Active Start : January 11, 2025 Dr. Yaritza Leo DO Other Provider Active Start : January 11, 2025 Dr. Cielo Tovar MD Other Provider Active St art: January 11, 2025 Dr. Jefferson Malave MD Attending Provider Active Start: January 11, 2025 Dr. Jefferson Malave MD Other Provider Active St art: January 11, 2025 Team Status: Active Member Role Status Dates Josy Elias [facility] Primary [facility] Provider Active Start: January 12, 2025 Dr. Breann Mendez DO Emergency Provider Active S tart: January 12, 2025 Dr. Yaritza Leo DO Admit Provider Active Start : January 12, 2025 Dr. Yaritza Leo DO Other Provider Active Start : January 12, 2025 Dr. Cielo Tovar MD Attending Provider Active Start: January 12, 2025 Dr. Cielo Tovar MD Other Provider Active St art: January 12, 2025 Dr. Jefferson Malave MD Other Provider Active St art: January 12, 2025 Team Status: Active Member Role Status Dates Josy Elias -C Primary Care Provider Active Start: January 13, 2025 Dr. Breann Mendez DO Emergency Provider Active S tart: January 13, 2025 Dr. Yaritza Leo DO Admit Provider Active Start : January 13, 2025 Dr. Yaritza Leo DO Other Provider Active Start : January 13, 2025 Dr. Cielo Tovar MD Attending Provider Active Start: January 13, 2025 Dr. Cielo Tovar MD Other Provider Active St art: January 13, 2025 Dr. Jefferson Malave MD Other Provider Active St art: January 13, 2025 Team Status: Active Member Role Status Dates Josy Elias NP-C Primary Care Provider Active Start: January 14, 2025 Dr. Breann Mendez DO Emergency Provider Active S tart: January 14, 2025 Dr. Yaritza Leo DO Admit Provider Active Start : January 14, 2025 Dr. Yaritza Leo DO Other Provider Active Start : January 14, 2025 Dr. Cielo Tovar MD Attending Provider Active Start: January 14, 2025 Dr. Cielo Tovar MD Other Provider Active St art: January 14, 2025 Dr. Jefferson Malave MD Other Provider Active St art: January 14, 2025 Dr. Aleyda Bautista MD Other Provider Active Star t: January 14, 2025 Team Status: Active Member Role Status Dates Josy Elias NP-C Primary Care Provider Active Start: January 15, 2025 Dr. Breann Mendez DO Emergency Provider Active S tart: January 15, 2025 Dr. Yaritza Leo DO Admit Provider Active Start : January 15, 2025 Dr. Yaritza Leo DO Other Provider Active Start : January 15, 2025 Dr. Cielo Tovar MD Attending Provider Active Start: January 15, 2025 Dr. Cielo Tovar MD Other Provider Active St art: January 15, 2025 Dr. Jefferson Malave MD Other Provider Active St art: January 15, 2025 Dr. Aleyda Bautista MD Other Provider Active Star t: January 15, 2025 Team Status: Active Member Role Status Dates Josy Elias NP-C Primary Care Provider Active Start: January 16, 2025 Dr. Breann Mendez DO Emergency Provider Active S tart: January 16, 2025 Dr. Yaritza Leo DO Admit Provider Active Start : January 16, 2025 Dr. Yaritza Leo DO Other Provider Active Start : January 16, 2025 Dr. Cielo Tovar MD Attending Provider Active Start: January 16, 2025 Dr. Cielo Tovar MD Other Provider Active St art: January 16, 2025 Dr. Jefferson Malave MD Other Provider Active St art: January 16, 2025 Dr. Aleyda Bautista MD Other Provider Active Star t: January 16, 2025 Team Status: Active Member Role Status Dates Josy Elias NP-C Primary Care Provider Active Start: January 17, 2025 Dr. Breann Mendez DO Emergency Provider Active S tart: January 17, 2025 Dr. Yaritza Leo DO Admit Provider Active Start : January 17, 2025 Dr. Yaritza Leo DO Other Provider Active Start : January 17, 2025 Dr. Jefferson Malave MD Other Provider Active St art: January 17, 2025 Dr. Aleyda Bautista MD Other Provider Active Star t: January 17, 2025 Dr. Anurag Irene MD Attending Provider Active Start: January 17, 2025 Dr. Anurag Irene MD Other Provider Active Sta rt: January 17, 2025 Dr. Cielo Tovar MD Other Provider Active St art: January 17, 2025 Team Status: Active Member Role Status Dates Josy Elias NP-C Primary Care Provider Active Start: January 18, 2025 Dr. Breann Mendez DO Emergency Provider Active S tart: January 18, 2025 Dr. Yaritza Leo DO Admit Provider Active Start : January 18, 2025 Dr. Yaritza Leo DO Other Provider Active Start : January 18, 2025 Dr. Jefferson Malave MD Other Provider Active St art: January 18, 2025 Dr. Aleyda Bautista MD Other Provider Active Star t: January 18, 2025 Dr. Anurag Irene MD Attending Provider Active Start: January 18, 2025 Dr. Anurag Irene MD Other Provider Active Sta rt: January 18, 2025 Dr. Cielo Tovar MD Other Provider Active St art: January 18, 2025 Team Status: Active Member Role Status Dates Josy Elias NP-C Primary Care Provider Active Start: January 19, 2025 Dr. Breann Mendez DO Emergency Provider Active S tart: January 19, 2025 Dr. Yaritza Leo DO Admit Provider Active Start : January 19, 2025 Dr. Yaritza Leo DO Other Provider Active Start : January 19, 2025 Dr. Jefferson Malave MD Other Provider Active St art: January 19, 2025 Dr. Aleyda Bautista MD Other Provider Active Star t: January 19, 2025 Dr. Anurag Irene MD Attending Provider Active Start: January 19, 2025 Dr. Anurag Irene MD Other Provider Active Sta rt: January 19, 2025 Dr. Cielo Tovar MD Other Provider Active St art: January 19, 2025 Team Status: Active Member Role Status Dates Josy Elias NP Primary Care Provider Active Start: January 20, 2025 Dr. Breann Mendez DO Emergency Provider Active S tart: January 20, 2025 Dr. Yaritza Leo DO Admit Provider Active Start : January 20, 2025 Dr. Yaritaz Leo DO Other Provider Active Start : January 20, 2025 Dr. Jefferson Malave MD Other Provider Active St art: January 20, 2025 Dr. Aleyda Bautista MD Other Provider Active Star t: January 20, 2025 Dr. Aunrag Irene MD Attending Provider Active Start: January 20, 2025 Dr. Anurag Irene MD Other Provider Active Sta rt: January 20, 2025 Dr. Cielo Tovar MD Other Provider Active St art: January 20, 2025 Team Status: Active Member Role Status Dates Josy Elias NP Primary Care Provider Active Start: January 21, 2025 Dr. Breann Mendez DO Emergency Provider Active S tart: January 21, 2025 Dr. Yaritza Leo DO Admit Provider Active Start : January 21, 2025 Dr. Yaritza Leo DO Other Provider Active Start : January 21, 2025 Dr. Jefferson Malave MD Other Provider Active St art: January 21, 2025 Dr. Aleyda Bauitsta MD Other Provider Active Star t: January 21, 2025 Dr. Anurag Irene MD Attending Provider Active Start: January 21, 2025 Dr. Anurag Irene MD Other Provider Active Sta rt: January 21, 2025 Dr. Cielo Tovar MD Other Provider Active St art: January 21, 2025 (unrecognized sect ion and content) No Status Records FoundNo Status Records FoundNo Status Records Found INFORMATION SOURCE (unrecogn ized section and content) DATE CREATED AUTHOR 10/10/2024 [facility] DATE CREATED AUTHOR AUTHOR'S ORGANIZ ATION 12/13/[address] [facility] DATE CREATED AUTHOR AUTHOR'S ORGANIZ ATION 01/27/[address] [facility] Source Comments (unrecognize d section and content) In the event this informatio n is protected by the Federal Confidentiality of Alcohol and Drug Abuse Patient Records regulations: The Federal rules restrict any use of the information to criminally investigate or prosecute any alcohol or drug abuse patient.[facility] the event this information is protected by the Federal Confidentiality of Alcohol and Drug Abuse Patient Records regulations: The Federal rules restrict any use of the information to criminally investigate or prosecute any alcohol or drug abuse patient.[facility] the event this information is protected by the Federal Confidentiality of Alcohol and Drug Abuse Patient Records regulations: The Federal rules restrict any use of the information to criminally investigate or prosecute any alcohol or drug abuse patient.[facility] the event this information is protected by the Federal Confidentiality of Alcohol and Drug Abuse Patient Records regulations: The Federal rules restrict any use of the information to criminally investigate or prosecute any alcohol or drug abuse patient.[facility] the event this information is protected by the Federal Confidentiality of Alcohol and Drug Abuse Patient Records regulations: The Federal rules restrict any use of the information to criminally investigate or prosecute any alcohol or drug abuse patient.[facility] the event this information is protected by the Federal Confidentiality of Alcohol and Drug Abuse Patient Records regulations: The Federal rules restrict any use of the information to criminally investigate or prosecute any alcohol or drug abuse patient.[facility] the event this information is protected by the Federal Confidentiality of Alcohol and Drug Abuse Patient Records regulations: The Federal rules restrict any use of the information to criminally investigate or prosecute any alcohol or drug abuse patient.[facility] the event this information is protected by the Federal Confidentiality of Alcohol and Drug Abuse Patient Records regulations: The Federal rules restrict any use of the information to criminally investigate or prosecute any alcohol or drug abuse patient.[facility] the event this information is protected by the Federal Confidentiality of Alcohol and Drug Abuse Patient Records regulations: The Federal rules restrict any use of the information to criminally investigate or prosecute any alcohol or drug abuse patient.[facility] the event this information is protected by the Federal Confidentiality of Alcohol and Drug Abuse Patient Records regulations: The Federal rules restrict any use of the information to criminally investigate or prosecute any alcohol or drug abuse patient.[facility] Hospital[facility] the event this information is protected by the Federal Confidentiality of Alcohol and Drug Abuse Patient Records regulations: The Federal rules restrict any use of the information to criminally investigate or prosecute any alcohol or drug abuse patient.[facility] FOR RECORDS PERTAINING TO PATIENTS WHO [...] BE BASED ON THE PRIMARY CLINICAL RECORDS. [facility] [employer] [facility]. provides no warranty or guarantee of the accuracy or completeness of information in this document.
--- NOTE | 2025-01-28 03:42 | EX.ED.DYSGE1 ---
HPI History of Present Illness Chief Complaint: Confusion Narrative Narrative: Chief complaint and HPI: Fever and confusion. 59-year-old male with past medical history DM2, ABBY, HTN, HLD, liver cirrhosis secondary to HARRIS presents from [facility] for fever and confusion. History taken by EMS as patient is a poor historian. Per EMS, patient developed a fever of 101 ?F this evening. They felt that the patient had a change in mental status so brought in for further evaluation. Patient is not known to me however is known to EMS as well as nursing staff here in the ER. They feel that the patient is at his baseline and states that he waxes and wanes in mentation. Patient denies feeling confused. Denies symptomatic fever. Denies any shortness of breath, cough, URI symptoms, abdominal pain, chest pain, nausea, vomiting, diarrhea, constipation, dysuria. I personally spoke with [facility] staff. The nurse is new to taking care of the patient. She does not know his baseline mental status. She states that she was told by multiple techs that he seemed more confused and that he was asking about people that had known to pass away. She states that she checked a forehead temperature prior to calling EMS. States it was 101 ?F. States she did not give any antipyretic. Review of systems: See HPI Medications: As listed on the chart Allergies: As listed on the chart PFSH: Per chart Vital signs: As listed on the chart. Reviewed. Physical exam: Gen: A&O x2-was unable to tell me his birthdate or the month but could tell me his name, where he was at, and the year, NAD Head: Normocephalic, atraumatic Eyes: Conjunctiva clear, PERRL, EOMI ENT: Moist mucous membranes Neck: Trachea midline, No JVD, full range of motion without meningismus CV: RRR, no murmurs, + bilateral lower extremity peripheral edema Resp: Lungs CTA BL, no w/r/c GI: Abd soft, non-distended, non-tender, no r/r/g Musc: Moves all extremities, no deformity Skin: Warm, dry, jaundice Neuro: Alert, grossly intact, sensation intact Psych: Cooperative [facility] Medical History Umbilical hernia Chronic hyponatremia Weakness Diarrhea Sepsis Acidosis, lactic Acute hypotension Acute UTI Chronic hypotension Obesity (BMI 30-39.9) Chronic back pain ISABEL (acute kidney injury) Hypotension Hepatic encephalopathy Hyperbilirubinemia Liver cirrhosis secondary to HARRIS (nonalcoholic steatohepatitis) HLD (hyperlipidemia) HTN (hypertension) Thrombocytopenia Chronic anemia Former tobacco use Diabetes mellitus, type 2 ABBY on CPAP Back pain Home Medications ?Medication ?Instructions ?Recorded ?Last Taken ?Type rifaximin 550 mg tablet (Xifaxan) 550 mg PO BID diarrhea #60 tabs 09/02/24 11/28/24 Rx acetaminophen 500 mg tablet 1,000 mg PO Q8 PRN fever or pain 10/28/24 Unknown History calcium 500 mg (as 1 tab PO DAILY supplement 10/28/24 11/28/24 History carbonate)-vitamin D3 5 mcg (200 unit) tablet (Oyster Shell Calcium-Vitamin D3) folic acid 1 mg tablet 1 mg PO DAILY supplement 10/28/24 11/28/24 History atorvastatin 40 mg tablet 40 mg PO DAILY cholesterol 11/21/24 11/27/24 History furosemide 20 mg tablet 40 mg PO DAILY diuretic 11/21/24 11/28/24 History magnesium oxide 400 mg (241.3 mg 400 mg PO DAILY supplement 11/21/24 11/28/24 History magnesium) tablet metformin 500 mg tablet,extended 500 mg PO QPM diabetes 11/21/24 11/27/24 History release 24 hr sodium bicarbonate 650 mg tablet 650 mg PO BID supplement 11/21/24 11/28/24 History thiamine HCl (vitamin B1) 100 mg 100 mg PO DAILY supplement 11/21/24 Unknown History tablet zinc sulfate 50 mg zinc (220 mg) 50 mg PO DAILY supplement 11/21/24 11/28/24 History tablet ascorbic acid (vitamin C) 500 mg 500 mg PO BID vitamin #60 tabs 11/25/24 11/28/24 Rx tablet midodrine 10 mg tablet 10 mg PO TID blood pressure 1 11/25/24 Unknown Rx month #90 tabs lactulose 10 gram/15 mL oral 15 ml PO TID PRN constipation 11/28/24 Unknown History solution (Constulose) cyclobenzaprine 10 mg tablet 10 mg PO QHS muscle relaxer 01/02/25 Unknown History ferrous sulfate 325 mg (65 mg 325 mg PO QODAY supplement 01/02/25 Unknown History iron) tablet (FeroSul) insulin glargine-yfgn 100 unit/mL 20 unit (0.2 mL) subcut QHS #0 mL 01/05/25 Unknown Rx (3 mL) subcutaneous pen insulin lispro 100 unit/mL 10 unit (0.1 mL) subcut TIDAC #0 mL 01/05/25 Unknown Rx subcutaneous pen (Humalog KwikPen (U-100) Insulin) insulin lispro 100 unit/mL See Protocol subcut ACHS #0 mL 01/05/25 Unknown Rx subcutaneous pen (Humalog KwikPen (U-100) Insulin) insulin glargine-yfgn 100 unit/mL 25 unit (0.25 mL) subcut DAILY #15 01/21/25 Unknown Rx (3 mL) subcutaneous pen mL spironolactone 100 mg tablet 100 mg PO DAILY 1 month #30 tabs 01/21/25 Unknown Rx spironolactone 25 mg tablet 25 mg PO DAILY 30 days #30 tabs 01/21/25 Unknown Rx omeprazole 20 mg capsule,delayed 20 mg PO DAILY 01/28/25 Unknown History release oxycodone 5 mg tablet 2.5 mg PO Q8H PRN Pain Score 4-10 01/28/25 Unknown History Or Pre Pt/Ot Allergy/AdvReac Type Severity Reaction Status Date / Time No Known Allergies Allergy Verified 01/02/25 03:00 Family History Mother Heart disease Hypertension CAD (coronary artery disease) Myocardial infarction Father Hypertension Heart disease Heart failure Surgical History History of tonsillectomy and adenoidectomy Social History household members: significant other Smoking Status: Former smoker how long ago did patient quit smoking: Quit ~ 3-4 months prior (fall 2023), smoked 1.5 ppd since teen until quit. alcohol intake: never substance use type: does not use EXAM Physical Exam Const Vital Signs: 01/28/25 02:56 01/28/25 04:55 01/28/25 06:00 Temperature 98.7 F Temperature Source Oral Pulse Rate 98 97 100 Respiratory Rate 16 16 Blood Pressure 117/76 126/77 H Blood Pressure Mean 89 93 Pulse Ox 98 Oxygen Delivery Method Room Air 01/28/25 06:16 01/28/25 06:17 Temperature 98.6 F 98.6 F Temperature Source Oral Pulse Rate 103 H 102 H Respiratory Rate 16 14 Blood Pressure 105/67 105/67 Blood Pressure Mean 79 79 Pulse Ox 100 99 Oxygen Delivery Method Room Air MDM MDM MDM Narrative Medical decision making narrative: 59-year-old male with past medical history DM2, ABBY, HTN, HLD, liver cirrhosis secondary to HARRIS presents from [facility] for fever and confusion. Patient is a poor historian therefore history taken by EMS as well as [facility] nurse. Reported patient developed a fever of 101 ?F this evening prior to arrival. No meds were given. Nurse as well as myself does not know the patient's baseline mental status although nursing staff here that note is the patient states that wax and wanes. Nurse there states that multiple techs felt that the patient was confused at [facility] and that he was asking about people recently . Patient has no complaints. See physical exam findings. Differential diagnosis includes but is not limited to viral illness, pneumonia, UTI, elevated ammonia level, hyperbilirubinemia, dehydration, ISABEL. Laboratory workup ordered including chest x-ray. EKG and chest x-ray reviewed see below. CBC without leukocytosis patient has baseline anemia with hemoglobin of 8.3 and baseline thrombocytopenia of 115. INR unremarkable. CMP shows baseline hyponatremia of 131 without ISABEL. Patient has hyperbilirubinemia with a total bilirubin of 1.91 and a direct bilirubin of 1.04. Patient not endorsing any abdominal pain and not tender on physical exam however given these findings we will obtain CT abdomen pelvis. I do not have ultrasound available. On chart review, he has a history of hyperbilirubinemia which changes in levels. Has baseline AST transaminitis and alkaline phosphatase. Troponin unremarkable. Patient not having any chest pain I do not think delta troponin is needed. BNP unremarkable. Lipase unremarkable. Lactic acid elevated at 3.4. NS bolus ordered. Will be judicial with fluids as patient has bilateral peripheral edema. UA positive for UTI. Urine culture and blood culture ordered. Patient's previous cultures grew out Enterococcus faecalis as well as ESBL Klebsiella pneumonia. Both have different susceptibilities and resistance. Given this I gave ampicillin and meropenem based on previous sensitivities which will cover for both bacteria. Patient has elevated ammonia level at 108. His encephalopathy is multifactorial. CT abdomen pelvis showed cirrhosis, collateral vessels, ascites. Left-sided ureteral stent remains in good position, lower pole staghorn calculus redemonstrated. Small calcifications in the bladder lumen which are probably attached to the distal end of the stent suggesting chronicity of stent placement. Right-sided colonic wall thickening, could be secondary to lumen underdistention as well as third spacing. On chart review, patient has an infected left staghorn calculus. He had left stent placement performed by Dr. Rascon on 09/05. Patient will warrant admission for hepatic encephalopathy, UTI, dehydration. Patient was discussed with the hospitalist service who accepted admission. EKG: Interpreted by me/EM physician: EKG shows normal sinus rhythm with prolonged QTc at 508. No acute ischemic changes. Heart rate 98 Diagnostic: Interpreted by me/EM physician: Chest x-ray without cardiomegaly, large effusion, pneumothorax, pneumonia. Patient has some mild atelectasis. Radiology in agreement. Impression: 1. Encephalopathy, multifactorial including hepatic as well as infectious 2. Hyperammonemia 3. UTI 4. Lactic acidosis 5. Chronic anemia 6. Chronic thrombocytopenia 7. History of cirrhosis secondary to HARRIS 8. Chronic hyperbilirubinemia Lab Data Labs: Laboratory Results - last 24 hr 01/28/25 01/28/25 01/28/25 03:10 03:10 03:10 WBC 5.2 RBC 2.82 L Hgb 8.3 L Hct 25.2 L MCV 89.4 MCH 29.4 MCHC 32.9 RDW Std Deviation 60.7 H RDW Coeff of Francis 18.4 H Plt Count 115 L MPV 11.5 Immature Gran % (Auto) 1.300 H Neut % (Auto) 57.8 Lymph % (Auto) 18.8 L Sutter % (Auto) 16.7 H Eos % (Auto) 4.6 Baso % (Auto) 0.8 Absolute Neuts (auto) 3.0 Absolute Lymphs (auto) 0.98 Nucleated RBC % 0 PT 20.0 H INR 1.7 APTT 38.4 H Sodium 131 L Potassium 3.4 Chloride 95 L Carbon Dioxide 22.1 Anion Gap 14 BUN 15 Creatinine 1.16 Estim Creat Clear Calc 92.49 Est GFR (MDRD) Non-Af 73 BUN/Creatinine Ratio 12.8 Glucose 93 Lactic Acid 3.4 H* Calcium 8.9 Magnesium 1.7 Cancelled Total Bilirubin 1.91 H Direct Bilirubin 1.04 H AST 58 H ALT 31 Alkaline Phosphatase 201 H Ammonia Cancelled Troponin T High Sens 13 D Cancelled NT pro BNP II 140 Total Protein 5.9 Albumin 2.5 L Globulin 3.3 Lipase 33 Urine Color Urine Clarity Urine pH Ur Specific [place] Urine Protein Urine Glucose (UA) Urine Ketones Urine Occult Blood Urine Nitrite Urine Bilirubin Urine Urobilinogen Ur Leukocyte Esterase Urine RBC Urine WBC Ur Squamous Epith Cells Urine Bacteria Urine Mucus 01/28/25 01/28/25 04:33 04:58 WBC RBC Hgb Hct MCV MCH MCHC RDW Std Deviation RDW Coeff of Francis Plt Count MPV Immature Gran % (Auto) Neut % (Auto) Lymph % (Auto) Sutter % (Auto) Eos % (Auto) Baso % (Auto) Absolute Neuts (auto) Absolute Lymphs (auto) Nucleated RBC % PT INR APTT Sodium Potassium Chloride Carbon Dioxide Anion Gap BUN Creatinine Estim Creat Clear Calc Est GFR (MDRD) Non-Af BUN/Creatinine Ratio Glucose Lactic Acid Calcium Magnesium Total Bilirubin Direct Bilirubin AST ALT Alkaline Phosphatase Ammonia 108.0 H Troponin T High Sens NT pro BNP II Total Protein Albumin Globulin Lipase Urine Color Rocio Urine Clarity Cloudy Urine pH 8.0 Ur Specific [place] 1.015 Urine Protein 100 H Urine Glucose (UA) Normal Urine Ketones Negative Urine Occult Blood 250 H Urine Nitrite Negative Urine Bilirubin Negative Urine Urobilinogen Normal Ur Leukocyte Esterase 500 H Urine RBC > 100 SEEN Urine WBC 10-25 SEEN Ur Squamous Epith Cells 0 SEEN Urine Bacteria 1+ Urine Mucus 0 SEEN Radiography Diagnostic Testing: Clinical Impression(s) from Imaging Studies Chest X-Ray 01/28/25 03:50 IMPRESSION: Mild bilateral basilar atelectatic pulmonary changes. [facility]Pelvis CT 01/28/25 05:12 IMPRESSION: Cirrhosis, collateral vessels, ascites. Left-sided ureteral stent remains in good position, lower pole staghorn calculus redemonstrated. Small calcifications in the bladder lumen, which are probably attached to the distal end of the stent suggesting chronicity of stent placement. Right-sided colonic wall thickening, this could be secondary to lumen under distention as well as third-spacing, correlate for possible hepatic colopathy. Reading Location: [place] [address] Discharge Plan Triage Chief Complaint: Confusion ED Provider: Danny Hutton Dx/Rx/DC Orders Prescriptions: No Action Xifaxan 550 mg Tablet 550 mg PO BID Qty: 60 0RF cyclobenzaprine 10 mg tablet 10 mg PO QHS ferrous sulfate [FeroSul] 325 mg (65 mg iron) tablet 325 mg PO QODAY insulin lispro [Humalog KwikPen Insulin] 100 unit/mL Insulin Pen See Protocol subcut ACHS Qty: 0 0RF Protocol: 4. Sliding Scale Insulin High-Med Dosing Condition: 150-199 mg/dl = 2 units Condition: 200-259 mg/dl = 4 units Condition: 260-324 mg/dl = 6 units Condition: 325-374 mg/dl = 8 units Condition: 375-409 mg/dl = 10 units Condition: 410-449 mg/dl = 11 units Condition: Greater than 449 call physician Protocol Text: Suggested for: - Patients on Total Daily Insulin Dose of 56-80 units - Patient who are known to be insulin resistant or septic HIGH MEDIUM DOSING ALGORITHM insulin lispro [Humalog KwikPen Insulin] 100 unit/mL Insulin Pen 10 unit subcut TIDAC Qty: 0 0RF insulin glargine-yfgn 100 unit/mL (3 mL) Insulin Pen 20 unit subcut QHS Qty: 0 0RF omeprazole 20 mg capsule,delayed release(DR/EC) 20 mg PO DAILY oxycodone 5 mg Tablet 2.5 mg PO Q8H PRN (Reason: Pain Score 4-10 Or Pre Pt/Ot) folic acid 1 mg tablet 1 mg PO DAILY calcium carbonate-vitamin D3 [Oyster Shell Calcium-Vit D3] 500 mg-5 mcg (200 unit) tablet 1 tab PO DAILY acetaminophen 500 mg Tablet 1,000 mg PO Q8 PRN (Reason: fever or pain) atorvastatin 40 mg tablet 40 mg PO DAILY furosemide 20 mg tablet 40 mg PO DAILY magnesium oxide 400 mg (241.3 mg magnesium) tablet 400 mg PO DAILY sodium bicarbonate 650 mg tablet 650 mg PO BID metformin 500 mg tablet extended release 24 hr 500 mg PO QPM thiamine HCl (vitamin B1) 100 mg tablet 100 mg PO DAILY zinc sulfate 50 mg zinc (220 mg) tablet 50 mg PO DAILY midodrine 10 mg tablet 10 mg PO TID 30 Days Qty: 90 0RF Rx Instructions: do not give last dose of day after 6PM or within 4 hrs of bedtime ascorbic acid (vitamin C) 500 mg tablet 500 mg PO BID Qty: 60 2RF lactulose [Constulose] 10 gram/15 mL solution 15 ml PO TID PRN (Reason: constipation) Patient Comments: HASNT HAD TO TAKE Rx Instructions: Goal to have 2 soft bowel movements per day spironolactone 25 mg Tablet 25 mg PO DAILY 30 Days Qty: 30 2RF Rx Instructions: total 125 mg daily Hold for serum potassium more than 5.0 spironolactone 100 mg tablet 100 mg PO DAILY 30 Days Qty: 30 2RF Rx Instructions: Hold for serum potassium more than 5.0. Total 125 mg daily. insulin glargine-yfgn 100 unit/mL (3 mL) Insulin Pen 25 unit subcut DAILY Qty: 15 3RF Primary Care Provider: Jerald Sherwood Referrals: Jerald Sherwood MD [Primary Care Provider] - Print Language: Venezuelan
--- NOTE | 2025-01-28 03:50 | RAD_ITS ---
PROCEDURE: CHEST PA AND LATERAL 01/28/2025 REASON FOR EXAM: CONFUSION TECHNIQUE: CHEST PA AND LATERAL COMPARISON: CT scan on 01/14/2025. Radiographs on 12/30/2024. FINDINGS: Mild bilateral basilar atelectatic pulmonary changes. There is no demonstrated pleural abnormality. Normal heart and pericardium. Normal mediastinum and haseeb. Normal visualized pulmonary arteries. Normal visualized aortic arch and descending thoracic aorta. Normal visualized thoracic spine. Normal visualized ribs, clavicles, and shoulders. There is no demonstrated abnormality of the visualized soft tissue structures of the upper abdomen. RAD/Chest PA and Lateral IMPRESSION: Mild bilateral basilar atelectatic pulmonary changes. Reading Location: [facility]
[2025-01-28 03:54] LABS: International Normalized Ratio 1.7
[2025-01-28 03:55] LABS: Partial Thromboplast Time 38.4 Seconds (24.1-36.2)
[2025-01-28 04:22] LABS: Lipase 33 U/L (13-75); Magnesium 1.7 mg/dL (1.5-2.2); Pro- Brain NATRIURETIC PEPTIDE 140 pg/mL (<=900); Troponin T High Sensitivity 13 ng/L (<=22)
[2025-01-28 04:32] LABS: Lactic Acid 3.4 mmol/L (0.0-2.0)
[2025-01-28 04:36] LABS: AST(SGOT) 58 U/L (<=37); Alanine Aminotransfer ALT/SGPT 31 U/L (<=46); Albumin, Serum 2.5 g/dL (3.5-5.0); Alkaline Phosphatase 201 U/L (40-129); BUN 15 mg/dL (4-19); BUN/Creat Ratio 12.8 RATIO (10-20); Bilirubin, Direct 1.04 mg/dL (0.00-0.30); Calcium,Total 8.9 mg/dL (7.6-11.0); Chloride 95 mmol/L (98-108); Creatinine, Serum 1.16 mg/dL (0.70-1.20); EST Glomerular Filtration Rate 73 (>60); Estimated Creatinine Clearance 92.49 ml/min (50-250); Globulin 3.3 g/dL (2.2-4.2); Glucose 93 mg/dL (70-99); Potassium 3.4 mmol/L (3.3-5.1); Protein, Total 5.9 g/dL (5.9-8.4); Sodium Level 131 mmol/L (133-145); Total Bilirubin 1.91 mg/dL (0.00-1.30)
[2025-01-28 04:40] LABS: Mucous, Urine 0 SEEN /hpf (<or=2+); Squamous Epithelial Cells - UA 0 SEEN /hpf (0-5)
[2025-01-28 04:54] LABS: Anion Gap 14 (5-15); Carbon Dioxide 22.1 mmol/L (21.0-32.0)
[2025-01-28] MEDS: 0.9% Normal Saline (1000mL) 1,000 ML 1000 ML IV (05:05)
[2025-01-28 05:12] LABS: Color, Urine Amber (Yellow); Glucose, Dipstick Normal (Normal); Ketone-Dipstick Negative (Negative); Leukocyte Esterase-Dipstick 500 /ul (Negative); Nitrite-Dipstick Negative (Negative); Occult Blood-Urine 250 /ul (Negative); Protein-Dipstick 100 mg/dl (Negative); Specific Gravity, Urine 1.015 (1.002-1.030); Urine Bilirubin Dipstick Negative (Negative); Urine Clarity Cloudy (Clear); Urine Urobilinogen Normal (Normal)
--- NOTE | 2025-01-28 05:12 | CT_ITS ---
PROCEDURE: ABDOMEN/PELVIS W IV CONT ONLY N/A REASON FOR EXAM: HYPERBILIRUBINEMIA, LACTIC ACIDOSIS TECHNIQUE: ABDOMEN/PELVIS W IV CONT ONLY Coronal and Sagittal reconstruction series were provided. CONTRAST: Isovue 300 VOLUME: 94 mL One or more dose reduction techniques were used (e.g., Automated exposure control, adjustment of the mA and/or kV according to patient size, use of iterative reconstruction technique. RADIATION DOSE SUMMARY: CTDlvol: 39 mGy DLP: 1280 mGycm COMPARISON: 01/09/2025 FINDINGS: Clear lung bases. Normal heart size. Cirrhotic liver morphology. Cholelithiasis. Unremarkable pancreas, spleen, adrenal glands, right kidney. Left renal staghorn calculus. Left-sided ureteral stent in good position. There are small bladder lumen calcifications adjacent to the stent, series 2, image 118. Normal prostate. No retroperitoneal or pelvic adenopathy. Large ascites. No free air. Possible gastritis. Nonobstructed bowel. Normal appendix. No acute large bowel findings definitely noted. Incomplete large bowel lumen distention does limit assessment. Large upper abdominal collateral vessels. There is a abdominopelvic wall edema. There are bilateral inguinal hernias of fat and fluid without bowel component. Umbilical hernia of fat and fluid without bowel component. Lumbar spine degeneration. Left marilee sacral remote fracture possibly a stress fracture. Old rib fractures. Multiple lower thoracic spine compression deformities without specific evidence of acuity. Lytic components raise the question of infiltrative conditions such as bone metastatic disease or infection. This requires close clinical correlation. CT/Abdomen/Pelvis W IV Cont ONLY IMPRESSION: Cirrhosis, collateral vessels, ascites. Left-sided ureteral stent remains in good position, lower pole staghorn calculu s redemonstrated. Small calcifications in the bladder lumen, which are probably attached to the distal end of the stent sugge sting chronicity of stent placement. Right-sided colonic wall thickening, this could be secondary to lumen under dis tention as well as third-spacing, correlate for possible hepatic colopathy. Reading Location: [place] [address]
[2025-01-28 05:29] LABS: Bacteria 1+ /hpf (None Seen); Red Blood Cells-Urine > 100 SEEN /hpf (0-5); White Blood Cells 10-25 SEEN /hpf (0-5)
[2025-01-28] MEDS: Ampicillin 1,000 MG in 0.9% Normal Saline (50mL MB+) 50 ML 100 MG IV (06:33)
[2025-01-28] MEDS: Meropenem 1 GM in 0.9% Normal Saline (100mL MB+) 100 ML IV ×3 (07:03→21:04)
--- NOTE | 2025-01-28 07:10 | PCM.HP.STD ---
[facility] - General General Date of Service: 01/28/25 Chief Complaint: Fever. [facility] Narrative FRANKLIN ARCHULETA, is a 59 M who presents with fever from the longterm. This is a 59-year-old male with cirrhosis presents with fever and confusion from the longterm. In emergency room, he was afebrile but does report that his temperature was 101 Fahrenheit. Patient is confused and on a provide any history so history obtained through the emergency room physician. In the emergency room, his ammonia was noted to be 108. Lactic acid was 3.4. Urinalysis showed white cells of 10-25, greater than 100 RBCs, 1+ bacteria. Concerned the patient may have a urinary tract infections the patient did receive IV meropenem given his history of having ESBL E. coli. The hospitalist service was contacted for admission. Patient has been confused and unable to even tell me his name. And has remained hemodynamically stable in the emergency room without fluid resuscitation. [facility] Medical History (Updated 01/28/25 @ 07:[address] Boone Izquierdo, DO) Hepatic encephalopathy Umbilical hernia Chronic hyponatremia Weakness Diarrhea Sepsis Acidosis, lactic Acute hypotension Acute UTI Chronic hypotension Obesity (BMI 30-39.9) Chronic back pain ISABEL (acute kidney injury) Hypotension Hyperbilirubinemia Liver cirrhosis secondary to HARRIS (nonalcoholic steatohepatitis) HLD (hyperlipidemia) HTN (hypertension) Thrombocytopenia Chronic anemia Former tobacco use Diabetes mellitus, type 2 ABBY on CPAP Back pain Home Medications ?Medication ?Instructions ?Recorded ?Last Taken ?Type rifaximin 550 mg tablet (Xifaxan) 550 mg PO BID diarrhea #60 tabs 09/02/24 11/28/24 Rx acetaminophen 500 mg tablet 1,000 mg PO Q8 PRN fever or pain 10/28/24 Unknown History calcium 500 mg (as 1 tab PO DAILY supplement 10/28/24 11/28/24 History carbonate)-vitamin D3 5 mcg (200 unit) tablet (Oyster Shell Calcium-Vitamin D3) folic acid 1 mg tablet 1 mg PO DAILY supplement 10/28/24 11/28/24 History atorvastatin 40 mg tablet 40 mg PO DAILY cholesterol 11/21/24 11/27/24 History furosemide 20 mg tablet 40 mg PO DAILY diuretic 11/21/24 11/28/24 History magnesium oxide 400 mg (241.3 mg 400 mg PO DAILY supplement 11/21/24 11/28/24 History magnesium) tablet metformin 500 mg tablet,extended 500 mg PO QPM diabetes 11/21/24 11/27/24 History release 24 hr sodium bicarbonate 650 mg tablet 650 mg PO BID supplement 11/21/24 11/28/24 History thiamine HCl (vitamin B1) 100 mg 100 mg PO DAILY supplement 11/21/24 Unknown History tablet zinc sulfate 50 mg zinc (220 mg) 50 mg PO DAILY supplement 11/21/24 11/28/24 History tablet ascorbic acid (vitamin C) 500 mg 500 mg PO BID vitamin #60 tabs 11/25/24 11/28/24 Rx tablet midodrine 10 mg tablet 10 mg PO TID blood pressure 1 11/25/24 Unknown Rx month #90 tabs lactulose 10 gram/15 mL oral 15 ml PO TID PRN constipation 11/28/24 Unknown History solution (Constulose) cyclobenzaprine 10 mg tablet 10 mg PO QHS muscle relaxer 01/02/25 Unknown History ferrous sulfate 325 mg (65 mg 325 mg PO QODAY supplement 01/02/25 Unknown History iron) tablet (FeroSul) insulin glargine-yfgn 100 unit/mL 20 unit (0.2 mL) subcut QHS #0 mL 01/05/25 Unknown Rx (3 mL) subcutaneous pen insulin lispro 100 unit/mL 10 unit (0.1 mL) subcut TIDAC #0 mL 01/05/25 Unknown Rx subcutaneous pen (Humalog KwikPen (U-100) Insulin) insulin lispro 100 unit/mL See Protocol subcut ACHS #0 mL 01/05/25 Unknown Rx subcutaneous pen (Humalog KwikPen (U-100) Insulin) insulin glargine-yfgn 100 unit/mL 25 unit (0.25 mL) subcut DAILY #15 01/21/25 Unknown Rx (3 mL) subcutaneous pen mL spironolactone 100 mg tablet 100 mg PO DAILY 1 month #30 tabs 01/21/25 Unknown Rx spironolactone 25 mg tablet 25 mg PO DAILY 30 days #30 tabs 01/21/25 Unknown Rx omeprazole 20 mg capsule,delayed 20 mg PO DAILY 01/28/25 Unknown History release oxycodone 5 mg tablet 2.5 mg PO Q8H PRN Pain Score 4-10 01/28/25 Unknown History Or Pre Pt/Ot Allergy/AdvReac Type Severity Reaction Status Date / Time No Known Allergies Allergy Verified 01/02/25 03:00 Family History Mother Heart disease Hypertension CAD (coronary artery disease) Myocardial infarction Father Hypertension Heart disease Heart failure Surgical History History of tonsillectomy and adenoidectomy Social History household members: significant other Smoking Status: Former smoker how long ago did patient quit smoking: Quit ~ 3-4 months prior (fall 2023), smoked 1.5 ppd since teen until quit. alcohol intake: never substance use type: does not use ROS Review of Systems ROS Unobtainable: due to encephalopathy Vital Signs Vital Signs Vital Signs: 01/28/25 02:56 01/28/25 04:55 01/28/25 06:00 Temperature 37.1 C Temperature Source Oral Pulse Rate 98 97 100 Respiratory Rate 16 16 Blood Pressure 117/76 126/77 H Blood Pressure Mean 89 93 Pulse Ox 98 Oxygen Delivery Method Room Air 01/28/25 06:16 01/28/25 06:17 Temperature 37.0 C 37.0 C Temperature Source Oral Pulse Rate 103 H 102 H Respiratory Rate 16 14 Blood Pressure 105/67 105/67 Blood Pressure Mean 79 79 Pulse Ox 100 99 Oxygen Delivery Method Room Air Weight Weight: 112.2 kg Body Mass Index (BMI) 31.7 Physical Exam Const Constitutional Narrative: Confused. Afebrile. Sallow appearance. HEENT normocephalic and head/scalp atraumatic Eyes EOMs intact bilaterally Eyes Narrative: Icterus Resp normal respiratory effort, no retractions, no use of accessory muscles and clear to auscultation bilaterally Cardio regular rate, regular rhythm, S1 normal heart sound and S2 normal heart sound GI normal to inspection, nondistended, normoactive bowel sounds and soft to palpation Extremity Extremity Narrative: Bilateral taught lower extremity edema Neuro moves all extremities Sensorium / Orientation: awake; Negative for oriented to person, oriented to place or oriented to time Results Lab / Micro Data 01/28/25 03:10 01/28/25 03:10 Labs: Laboratory Results - last 24 hr 01/28/25 03:10: WBC 5.2, RBC 2.82 L, Hgb 8.3 L, Hct 25.2 L, MCV 89.4, MCH 29.4, MCHC 32.9, RDW Std Deviation 60.7 H, RDW Coeff of Francis 18.4 H, Plt Count 115 L, MPV 11.5, Immature Gran % (Auto) 1.300 H, Neut % (Auto) 57.8, Lymph % (Auto) 18.8 L, [place] % (Auto) 16.7 H, Eos % (Auto) 4.6, Baso % (Auto) 0.8, Absolute Neuts (auto) 3.0, Absolute Lymphs (auto) 0.98, Nucleated RBC % 0, PT 20.0 H, INR 1.7, APTT 38.4 H, Sodium 131 L, Potassium 3.4, Chloride 95 L, Carbon Dioxide 22.1, Anion Gap 14, BUN 15, Creatinine 1.16, Estim Creat Clear Calc 92.49, Est GFR (MDRD) Non-Af 73, BUN/Creatinine Ratio 12.8, Glucose 93, Lactic Acid 3.4 H*, Calcium 8.9, Magnesium 1.7 01/28/25 03:10: Magnesium Cancelled, Total Bilirubin 1.91 H, Direct Bilirubin 1.04 H, AST 58 H, ALT 31, Alkaline Phosphatase 201 H, Ammonia Cancelled, Troponin T High Sens 13 D 01/28/25 03:10: Troponin T High Sens Cancelled, NT pro BNP II 140, Total Protein 5.9, Albumin 2.5 L, Globulin 3.3, Lipase 33 01/28/25 04:33: Urine Color Rocio, Urine Clarity Cloudy, Urine pH 8.0, Ur Specific [place] 1.015, Urine Protein 100 H, Urine Glucose (UA) Normal, Urine Ketones Negative, Urine Occult Blood 250 H, Urine Nitrite Negative, Urine Bilirubin Negative, Urine Urobilinogen Normal, Ur Leukocyte Esterase 500 H, Urine RBC > 100 SEEN, Urine WBC 10-25 SEEN, Ur Squamous Epith Cells 0 SEEN, Urine Bacteria 1+, Urine Mucus 0 SEEN 01/28/25 04:58: Ammonia 108.0 H Micro: Microbiology 01/28/25 03:10 Mucosa - Nose SARS-CoV-2, Influenza & RSV (PCR) - Final Imaging Radiology Impression Chest X-Ray 01/28/25 03:50 IMPRESSION: Mild bilateral basilar atelectatic pulmonary changes. Reading Location: [id number] Abdomen/Pelvis CT 01/28/25 05:12 IMPRESSION: Cirrhosis, collateral vessels, ascites. Left-sided ureteral stent remains in good position, lower pole staghorn calculus redemonstrated. Small calcifications in the bladder lumen, which are probably attached to the distal end of the stent suggesting chronicity of stent placement. Right-sided colonic wall thickening, this could be secondary to lumen under distention as well as third-spacing, correlate for possible hepatic colopathy. Reading Location: [id number] Assessment & Plan Assessment/Plan (1) Hepatic encephalopathy: PLAN: Patient was just discharged here on the and was discharged with lactulose but ordered as as needed for constipation (unclear if patient was actually receiving it). As well as rifaximin. Unclear if he was actually receiving the lactulose so we will schedule it 20 g 4 times daily and continue with the rifaximin. Avoid potentiating medications. On his home medication reconciliation form he had cyclobenzaprine added at night and oxycodone. Those medications will be held. (2) Acute UTI: PLAN: Unclear if patient actually does have a urinary tract infection. Was just here and had unremarkable urine culture with exception of yeast. Empirically, will treat with meropenem for now but if the cultures come back negative then would recommend discontinuing antibiotics. CAT scan confirms left-sided ureteral stent with lower pole staghorn calculi present. (3) Lactic acidosis: PLAN: Hemodynamically stable. I do not feel the patient is actually septic at this time. And certainly with his edematous lower extremities, patient not a candidate for additional IV fluids. Though in the meantime, we will hold off on his diuretics. Patient does take metformin which may be skewing this lab abnormal. Monitor supportively at this time. PLAN: Plan Diabetes mellitus type 2: Insulin-dependent. Metformin held. Hold scheduled insulin with glargine and lispro for now until able to eat properly. Sliding scale insulin. 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 Patient does take Tylenol and atorvastatin, those will be discontinued. History of VTE: No anticoagulation due to hematuria and it is noted that the patient does have a greater than 100 RBCs in his UA. History of hypertension: Continue midodrine GERD: Continue with PPI Hyperlipidemia: Hold statin given patient's known cirrhosis. VTE prophylaxis with SCDs. CODE STATUS: Unable to directly address the patient given his encephalopathy. Previous CODE STATUS had been full code that will be continued. Charges/Coding Visit Charges Inpatient E&M: 62694 Init Hosp L3
[2025-01-28 07:27] LABS: Reflex Lactate? Y
--- NOTE | 2025-01-28 07:33 | ED.RN ---
verfied with lab. blood cx x2 were recieved
[2025-01-28 09:07] LABS: Lactic Acid 2.8 mmol/L (0.0-2.0)
[2025-01-28] MEDS: Lactulose 20 GM/30 ML UDC PO ×3 (11:28→21:04)
[2025-01-28] MEDS: Folic Acid 1 MG Tablet PO (11:31)
[2025-01-28] MEDS: Ferrous Sulfate 325 MG Tablet PO (11:31)
[2025-01-28] MEDS: Thiamine Hydrochloride 100 MG Tablet PO (11:31)
[2025-01-28] MEDS: Pantoprazole Sodium 20 MG Tablet PO (11:32)
[2025-01-28] MEDS: rifAXIMin 550 MG Tablet PO ×2 (11:32→21:04)
[2025-01-28] MEDS: Magnesium Chloride 64 MG Delay Rel.Tablet 128 MG PO (11:32)
[2025-01-28 11:55] LABS: Bedside Glucose 96 mg/dL (74-106)
[2025-01-28] MEDS: 0.9% Normal Saline 250 ML IV.SOLN. IV (15:17)
[2025-01-28] MEDS: 0.9% Saline Lock 10 ML Syringe IV (15:17)
[2025-01-28] MEDS: Midodrine HCl 5 MG Tablet 10 MG GT (15:22)
[2025-01-28 16:46] LABS: Bedside Glucose 102 mg/dL (74-106)
[2025-01-28] MEDS: Insulin Lispro 100 UNIT/ML INSULN.PEN SC (21:21)
[2025-01-29 00:58] LABS: Bedside Glucose 172 mg/dL (74-106)
[2025-01-29 03:00] VITALS: BP 128/71; PULSE 107; RESP 18; TEMP 36.6; O2SAT 100
[2025-01-29] MEDS: Lactulose 20 GM/30 ML UDC PO ×3 (03:07→16:05)
[2025-01-29] MEDS: Meropenem 1 GM in 0.9% Normal Saline (100mL MB+) 100 ML IV ×3 (05:38→22:54)
[2025-01-29 06:30] VITALS: BP 120/72; PULSE 114
[2025-01-29 06:37] LABS: Absolute Lymphocyte Count 0.83 X10^3/uL (0.83-4.51); Basophil# 0.04 X10^3/uL; Basophil% 0.8 % (0-1); Eosinophil# 0.26 X10^3/uL; Eosinophils% 5.3 % (0-5); Hematocrit 24.8 % (40-54); Hemoglobin 8.1 g/dL (13.0-16.5); Lymphocyte # 0.83 X10^3/ul (0.83-4.51); Lymphocyte % 17.1 % (19-41); Mean Corp Hgb Conc 32.7 g/dL (32-36); Mean Corpuscular Hgb 29.6 pg (27.0-32.0); Mean Corpuscular Volume 90.5 fL (80-94); Mean Platelet Vol. 11.6 fl (6.2-12.0); Monocyte# 0.74 X10^3/uL; Monocyte% 15.2 % (0-10); NRBC Flagged by Analyzer 0 % (0-5); Neutrophil # 2.95 X10^3/uL (2.7-7.7); Neutrophil % 60.8 % (47-70); Platelet Count 120 K/mm3 (150-450); RBC Distribution Width CV 18.4 % (11.6-14.6); RBC Distribution Width SD 60.7 fl (35.1-43.9); Red Blood Count 2.74 M/mm3 (4.6-6.2); White Blood Count 4.9 K/mm3 (4.4-11.0)
[2025-01-29] MEDS: Midodrine HCl 5 MG Tablet 10 MG GT ×2 (06:47→22:54)
[2025-01-29] MEDS: Insulin Lispro 100 UNIT/ML INSULN.PEN SC ×4 (06:47→22:53)
[2025-01-29 06:57] LABS: ALB/GLOB Ratio 0.8 RATIO (0.9-2.4); AST(SGOT) 52 U/L (<=37); Alanine Aminotransfer ALT/SGPT 30 U/L (<=46); Albumin, Serum 2.3 g/dL (3.5-5.0); Alkaline Phosphatase 180 U/L (40-129); Anion Gap 14 (5-15); BUN 13 mg/dL (4-19); BUN/Creat Ratio 11.6 RATIO (10-20); Calcium,Total 8.8 mg/dL (7.6-11.0); Carbon Dioxide 19.5 mmol/L (21.0-32.0); Chloride 100 mmol/L (98-108); Creatinine, Serum 1.09 mg/dL (0.70-1.20); EST Glomerular Filtration Rate 79 (>60); Estimated Creatinine Clearance 94.75 ml/min (50-250); Globulin 3.1 g/dL (2.2-4.2); Glucose 265 mg/dL (70-99); Potassium 3.5 mmol/L (3.3-5.1); Protein, Total 5.4 g/dL (5.9-8.4); Sodium Level 133 mmol/L (133-145); Total Bilirubin 1.81 mg/dL (0.00-1.30)
[2025-01-29 07:11] LABS: Bedside Glucose 237 mg/dL (74-106)
--- NOTE | 2025-01-29 07:54 | PCM.PN.HOSP ---
Reason for Visit Reason for Visit: Fever Subjective Subjective Patient reported to have a fever at the nursing facility but has been afebrile here. Urine cultures have growth but none of them are significant growth. Mental status seems to be back to baseline. Patient is really and interested in having a meaningful conversation and is just worried about his code at this point in time. I did discuss with him that we would have the nursing staff call and see if his code is at the facility from when she came. Objective Data Objective Data Vital Signs: Vital Signs Temp Pulse Resp BP Pulse Ox O2 Del Method 97.8 F 114 H 18 120/72 100 Room Air 01/29/25 03:00 01/29/25 06:30 01/29/25 03:00 01/29/25 06:30 01/29/25 03:00 01/29/25 03:00 Oxygen Delivery Method Room Air Weight: 110.3 kg Body Mass Index (BMI) 33.0 Intake & Output: Intake and Output for Last 24 Hours 01/27/25 01/28/25 01/29/25 23:59 23:59 23:59 Intake Total 1570 / 2030 980 / 980 Output Total 250 / 650 750 / 750 Balance 1320 / 1380 230 / 230 Lab / Micro Data 01/29/25 05:58 01/29/25 05:58 Labs: Laboratory Results - last 24 hr 01/28/25 07:40: Lactic Acid 2.8 H* 01/28/25 11:25: POC Glucose 96 01/28/25 16:16: POC Glucose 102 01/28/25 20:59: POC Glucose 172 H 01/29/25 05:58: WBC 4.9, RBC 2.74 L, Hgb 8.1 L, Hct 24.8 L, MCV 90.5, MCH 29.6, MCHC 32.7, RDW Std Deviation 60.7 H, RDW Coeff of Francis 18.4 H, Plt Count 120 L, MPV 11.6, Immature Gran % (Auto) 0.800, Neut % (Auto) 60.8, Lymph % (Auto) 17.1 L, [place] % (Auto) 15.2 H, Eos % (Auto) 5.3 H, Baso % (Auto) 0.8, Absolute Neuts (auto) 3.0, Absolute Lymphs (auto) 0.83, Nucleated RBC % 0, Sodium 133, Potassium 3.5, Chloride 100, Carbon Dioxide 19.5 L, Anion Gap 14, BUN 13, Creatinine 1.09, Estim Creat Clear Calc 94.75, Est GFR (MDRD) Non-Af 79, BUN/Creatinine Ratio 11.6, Glucose 265 H, Calcium 8.8, Total Bilirubin 1.81 H, AST 52 H, ALT 30, Alkaline Phosphatase 180 H, Total Protein 5.4 L, Albumin 2.3 L, Globulin 3.1, Albumin/Globulin Ratio 0.8 L 01/29/25 06:44: POC Glucose 237 H Micro: Microbiology 01/28/25 03:10 Mucosa - Nose SARS-CoV-2, Influenza & RSV (PCR) - Final Physical Exam Const alert and oriented x3 Constitutional Narrative: Obese, middle-aged, white male, sitting up in bed, appears older than stated age, sitter at bedside, watching television, appears comfortable, nontoxic HEENT moist oral mucous membranes Head and Scalp: normocephalic Eyes Eyes Narrative: Bilateral conjunctiva pallor, no scleral icterus Neck supple Neck Narrative: Trachea midline Resp normal respiratory effort, no retractions, no use of accessory muscles and clear to auscultation bilaterally Resp Narrative: Diminished but clear Cardio regular rhythm, S1 normal heart sound, S2 normal heart sound, no murmurs, no rub, no gallops and no clicks; Negative for regular rate Cardio Narrative: Mild tachycardia GI normal to inspection, nondistended, normoactive bowel sounds, soft to palpation and non-tender GI Narrative: Protuberant abdomen Extremity Extremity Narrative: 2+ bilateral lower extremity edema, no cyanosis or clubbing Neuro oriented x3, moves all extremities and no focal motor deficits Speech: speech normal Psych Psych Narrative: Mild agitation due to not having his coat Assessment & Plan Assessment/Plan (1) Hepatic encephalopathy: (2) Umbilical hernia: (3) Abnormal urinalysis: PLAN: Plan Hepatic encephalopathy - Patient was recently discharged here with lactulose then Foxman however he was only taking the lactulose as needed - Will restart home lactulose but make sure it scheduled next-continue home rifaximin -mental status appears to be clearing - Will try to restart home chronic meds that can be somewhat sedating to see how he responds may need to discontinue depending on overall mental status - Currently would like to have him have 2-3 bowel movements daily Abnormal UA - UA is suggestive of infection however he often has low colony count bacterial growth - Will continue empiric meropenem for now until cultures are finalized - CTA abdomen pelvis confirms well-placed left-sided ureteral stent with lower pole staghorn calculi -Will need outpatient urology follow-up after discharge Lactic acidosis - Do not anticipate this is related to sepsis - Patient is on metformin at baseline and suspect it is related to this given the current clinical picture - Will hold metformin while hospitalized and consider complete discontinuation at discharge ISABEL secondary to ATN with sepsis - Baseline serum creatinine is between 0.8 and 1.1 - Current serum creatinine is 1.77 with decreased urine output - Should resolve with improved perfusion - Repeat lab in a.m. - Avoid nephrotoxins - Hold diuretics Chronic metabolic acidosis - Continue home sodium bicarbonate - Trend Abdominal pain - Secondary to inguinal hernia - Patient was seen by general surgery at his last hospitalization and outpatient follow-up is recommended Compression fractures T8 10, 11, and 12 - Vitamin D level was obtained at his last hospitalization and found to be 10 - Will start ergocalciferol - PT/OT consultation Vitamin D deficiency - Vitamin D level obtained at his last hospitalization found to be 10 - Start ergocalciferol 50,000 units weekly x 7 weeks - Recheck vitamin D level at the end of treatment Chronic anemia - Hemoglobin is stable - Will trend - No signs of GI bleeding HARRIS liver cirrhosis with history of varices and hepatic encephalopathy - Continue home rifaximin - Continue home lactulose - Hold home Aldactone and nadolol while being treated for hypotension - Had paracentesis at his last hospitalization for removal of about 3 L History of extensive venous thrombosis - Currently not on anticoagulation due to acute blood loss anemia with hematuria - No plans to reinitiate at this point Chronic hypotension - Continue home midodrine - Once blood pressure stabilizes may restart GERD - Continue on PPI DM-2 - Hold home oral agents - Continue home basal insulin and SSI - Hold home scheduled lispro for now until p.o. intake is improved - Accu-Cheks as ordered - Recent hemoglobin A1c was 7.2 however this is probably underestimated due to his anemia at baseline Hyperlipidemia - Continue home atorvastatin DVT prophylaxis - Heparin 3 times daily CODE STATUS - Full code Charges/Coding Visit Charges Inpatient E&M: 48283 Subs Hosp L2
[2025-01-29 09:27] VITALS: BP 124/65; PULSE 116; RESP 14; TEMP 36.8; O2SAT 99
[2025-01-29] MEDS: Folic Acid 1 MG Tablet PO (09:31)
[2025-01-29] MEDS: Thiamine Hydrochloride 100 MG Tablet PO (09:32)
[2025-01-29] MEDS: Magnesium Chloride 64 MG Delay Rel.Tablet 128 MG PO (09:32)
[2025-01-29] MEDS: Pantoprazole Sodium 20 MG Tablet PO (09:32)
[2025-01-29] MEDS: rifAXIMin 550 MG Tablet PO ×2 (09:32→22:55)
[2025-01-29] MEDS: Insulin Glargine-YFGN 100 UNIT/ML Pen 12 UNIT SC (10:13)
[2025-01-29 12:09] LABS: Bedside Glucose 196 mg/dL (74-106)
--- NOTE | 2025-01-29 13:26 | CASEMGMT ---
Social Work SW met w/pt, he would prefer to go home if he could rather than back to [facility]. SW will speak w/physician about when pt is ready for discharge to see how to proceed. Pt did walk 180 feet w/therapy. PIERRE Tobias
[2025-01-29] MEDS: 0.9% Saline Lock 10 ML Syringe IV (13:40)
[2025-01-29 14:40] VITALS: BP 121/78; PULSE 105; RESP 16; TEMP 36.6; O2SAT 98
[2025-01-29 16:27] LABS: Bedside Glucose 163 mg/dL (74-106)
[2025-01-29] MEDS: oxyCODONE 5 MG Tablet 2.5 MG PO (17:35)
[2025-01-29] MEDS: Ergocalciferol 1.25 MG (50, 000 UNIT) Capsule PO (18:47)
[2025-01-29 19:57] VITALS: BP 102/70; PULSE 105; RESP 16; TEMP 36.9; O2SAT 100
[2025-01-29] MEDS: Mineral Oil/Petrolatum Cr 1.75oz Bottle 1 APPLIC TOPICAL (20:01)
[2025-01-29] MEDS: Insulin Glargine-YFGN 100 UNIT/ML Pen 20 UNIT SC (22:53)
[2025-01-29] MEDS: Sodium Bicarbonate 650 MG Tablet PO (22:55)
[2025-01-29] MEDS: cycloBENZAPRine HCl 10 MG Tablet PO (22:55)
[2025-01-29] MEDS: Atorvastatin Calcium 40 MG Tablet PO (22:55)
[2025-01-29 23:57] LABS: Bedside Glucose 174 mg/dL (74-106)
[2025-01-30 03:09] VITALS: BP 113/58; PULSE 107; RESP 16; TEMP 36.8; O2SAT 99
[2025-01-30 06:31] LABS: Absolute Lymphocyte Count 1.08 X10^3/uL (0.83-4.51); Absolute Neutrophil Count 2.9 X10^3/uL (2.0-7.7); Basophil# 0.04 X10^3/uL; Basophil% 0.7 % (0-1); Eosinophil# 0.38 X10^3/uL; Hematocrit 24.1 % (40-54); Hemoglobin 7.7 g/dL (13.0-16.5); Lymphocyte # 1.08 X10^3/ul (0.83-4.51); Mean Corpuscular Hgb 29.2 pg (27.0-32.0); Mean Corpuscular Volume 91.3 fL (80-94); Mean Platelet Vol. 10.5 fl (6.2-12.0); Monocyte% 18.5 % (0-10); NRBC Flagged by Analyzer 0 % (0-5); Neutrophil # 2.87 X10^3/uL (2.7-7.7); Neutrophil % 53.2 % (47-70); Platelet Count 108 K/mm3 (150-450); RBC Distribution Width CV 18.1 % (11.6-14.6); RBC Distribution Width SD 61.1 fl (35.1-43.9); Red Blood Count 2.64 M/mm3 (4.6-6.2); White Blood Count 5.4 K/mm3 (4.4-11.0)
[2025-01-30 06:56] LABS: Anion Gap 13 (5-15); BUN 9 mg/dL (4-19); BUN/Creat Ratio 10.1 RATIO (10-20); Calcium,Total 8.4 mg/dL (7.6-11.0); Carbon Dioxide 17.3 mmol/L (21.0-32.0); Chloride 101 mmol/L (98-108); Creatinine, Serum 0.93 mg/dL (0.70-1.20); EST Glomerular Filtration Rate 95 (>60); Estimated Creatinine Clearance 111.05 ml/min (50-250); Glucose 139 mg/dL (70-99); Magnesium 1.7 mg/dL (1.5-2.2); Phosphorus 2.7 mg/dL (2.7-4.5); Potassium 3.5 mmol/L (3.3-5.1); Sodium Level 131 mmol/L (133-145)
[2025-01-30] MEDS: Meropenem 1 GM in 0.9% Normal Saline (100mL MB+) 100 ML IV (07:14)
--- NOTE | 2025-01-30 07:28 | PCM.PN.HOSP ---
Reason for Visit Reason for Visit: Fever Subjective Subjective Patient continues to be afebrile here. Still with some mild confusion however patient had refused some lactulose. He is agreeable at this point per nursing however he is sleeping at the time of my evaluation. No significant issues overnight. Objective Data Objective Data Vital Signs: Vital Signs Temp Pulse Resp BP Pulse Ox O2 Del Method 98.2 F 107 H 16 113/58 L 99 Room Air 01/30/25 03:09 01/30/25 03:09 01/30/25 03:09 01/30/25 03:09 01/30/25 03:09 01/30/25 03:13 Oxygen Delivery Method Room Air Weight: 110.3 kg Body Mass Index (BMI) 33.0 Intake & Output: Intake and Output for Last 24 Hours 01/28/25 01/29/25 01/30/25 23:59 23:59 23:59 Intake Total 1570 / 2030 1220 / 1220 520 / 520 Output Total 250 / 650 750 / 750 Balance 1320 / 1380 470 / 470 520 / 520 Lab / Micro Data 01/30/25 06:00 01/30/25 06:00 Labs: Laboratory Results - last 24 hr 01/29/25 11:49: POC Glucose 196 H 01/29/25 16:04: POC Glucose 163 H 01/29/25 22:52: POC Glucose 174 H 01/30/25 06:00: WBC 5.4, RBC 2.64 L, Hgb 7.7 L, Hct 24.1 L, MCV 91.3, MCH 29.2, MCHC 32.0, RDW Std Deviation 61.1 H, RDW Coeff of Francis 18.1 H, Plt Count 108 L, MPV 10.5, Immature Gran % (Auto) 0.600, Neut % (Auto) 53.2, Lymph % (Auto) 20.0, [place] % (Auto) 18.5 H, Eos % (Auto) 7.0 H, Baso % (Auto) 0.7, Absolute Neuts (auto) 2.9, Absolute Lymphs (auto) 1.08, Nucleated RBC % 0, Sodium 131 L, Potassium 3.5, Chloride 101, Carbon Dioxide 17.3 L, Anion Gap 13, BUN 9, Creatinine 0.93, Estim Creat Clear Calc 111.05, Est GFR (MDRD) Non-Af 95, BUN/Creatinine Ratio 10.1, Glucose 139 H, Calcium 8.4, Phosphorus 2.7, Magnesium 1.7 Micro: Microbiology 01/28/25 06:15 Blood Culture (Wb) - Anticubital Right Blood Culture - Preliminary No growth in 48 hours. 01/28/25 06:03 Blood Culture (Wb) - Left Hand Blood Culture - Preliminary No growth in 48 hours. 01/28/25 06:16 Urine, Clean Catch Urine Culture - Preliminary GPC Poss Enterococcus sp GNR lactose performance solutions specialist 01/28/25 03:10 Mucosa - Nose SARS-CoV-2, Influenza & RSV (PCR) - Final Physical Exam Const Constitutional Narrative: Obese, middle-aged, white male, lying in bed sleeping soundly, appears comfortable, nontoxic, sitter is no longer at the bedside HEENT normocephalic and head/scalp atraumatic Neck supple Neck Narrative: Trachea midline Resp normal respiratory effort, no retractions, no use of accessory muscles and clear to auscultation bilaterally Resp Narrative: Diminished but clear Cardio regular rate, regular rhythm, S1 normal heart sound, S2 normal heart sound, no murmurs, no rub, no gallops and no clicks GI normal to inspection, nondistended, normoactive bowel sounds, soft to palpation and non-tender GI Narrative: Protuberant abdomen Extremity Extremity Narrative: 2+ bilateral lower extremity edema, no cyanosis or clubbing Neuro Neuro Narrative: Patient sleeping at the time of my evaluation, per nursing he is oriented x 3 but has intermittent confusion Psych Psych Narrative: Sleeping Assessment & Plan Assessment/Plan (1) Hepatic encephalopathy: (2) Umbilical hernia: (3) Abnormal urinalysis: PLAN: Plan Hepatic encephalopathy - Patient was recently discharged here with lactulose then [place] however he was only taking the lactulose as needed - Continue lactulose 6-continue rifaximin - Mental status continues to clear but still with some confusion - Will try to restart home chronic meds that can be somewhat sedating to see how he responds may need to discontinue depending on overall mental status - Currently would like to have him have 2-3 bowel movements daily Abnormal UA - Culture does not show colony counts consistent with infection and I do not think the patient's confusion is related to this - VRE at colony counts that 11-25,000 CFU's per mL and a gram-negative michael at the thousand to 10,000 CFU's per mL -Will maintain antibiotics with linezolid only for now and discuss further with ID tomorrow--> I do have concern because he does have that large staghorn calculus - CTA abdomen pelvis confirms well-placed left-sided ureteral stent with lower pole staghorn calculi -Will need outpatient urology follow-up after discharge Lactic acidosis - Resolved Chronic metabolic acidosis - Continue home sodium bicarbonate - Trend Abdominal pain - Secondary to inguinal hernia - Patient was seen by general surgery at his last hospitalization and outpatient follow-up is recommended Compression fractures T8 10, 11, and 12 - Vitamin D level was obtained at his last hospitalization and found to be 10 - Will start ergocalciferol - PT/OT consultation Vitamin D deficiency - Vitamin D level obtained at his last hospitalization found to be 10 - Continue ergocalciferol 50,000 units weekly x 7 weeks - Recheck vitamin D level at the end of treatment Chronic anemia - Hemoglobin is stable - Will trend - No signs of GI bleeding HARRIS liver cirrhosis with history of varices and hepatic encephalopathy - Continue home rifaximin - Continue home lactulose - Hold home Aldactone and nadolol while being treated for hypotension - Had paracentesis at his last hospitalization for removal of about 3 L History of extensive venous thrombosis - Currently not on anticoagulation due to acute blood loss anemia with hematuria - No plans to reinitiate at this point Chronic hypotension - Continue home midodrine - Once blood pressure stabilizes may restart GERD - Continue on PPI DM-2 - Hold home oral agents - Continue home basal insulin and SSI - Hold home scheduled lispro for now until p.o. intake is improved - Accu-Cheks as ordered - Recent hemoglobin A1c was 7.2 however this is probably underestimated due to his anemia at baseline Hyperlipidemia - Continue home atorvastatin DVT prophylaxis - Heparin 3 times daily CODE STATUS - Full code Charges/Coding Visit Charges Inpatient E&M: 42138 Subs Hosp L2
[2025-01-30 08:19] VITALS: BP 121/78; PULSE 95; RESP 16; TEMP 37.3; O2SAT 99
[2025-01-30] MEDS: Lactulose 20 GM/30 ML UDC 10 GM PO ×3 (08:28→21:47)
[2025-01-30] MEDS: Insulin Lispro 100 UNIT/ML INSULN.PEN 10 UNIT SC ×2 (08:30→11:47)
[2025-01-30] MEDS: Calcium Carb/Vitamin D 1 TABLET Tablet PO (08:33)
[2025-01-30] MEDS: Ascorbic Acid 500 MG Tablet PO (08:33)
[2025-01-30] MEDS: Zinc Sulfate 50 mg zinc (220 mg) ORAL capsule PO (08:33)
[2025-01-30] MEDS: Spironolactone 50 MG Tablet 100 MG PO (08:34)
[2025-01-30] MEDS: Spironolactone 25 MG Tablet PO (08:34)
[2025-01-30] MEDS: Furosemide 40 MG Tablet PO (08:35)
[2025-01-30] MEDS: Ferrous Sulfate 325 MG Tablet PO (08:35)
[2025-01-30] MEDS: Folic Acid 1 MG Tablet PO (08:36)
[2025-01-30] MEDS: rifAXIMin 550 MG Tablet PO ×2 (08:36→21:50)
[2025-01-30] MEDS: Sodium Bicarbonate 650 MG Tablet PO ×2 (08:36→21:50)
[2025-01-30] MEDS: Thiamine Hydrochloride 100 MG Tablet PO (08:36)
[2025-01-30] MEDS: Magnesium Chloride 64 MG Delay Rel.Tablet 128 MG PO (08:37)
[2025-01-30] MEDS: Pantoprazole Sodium 20 MG Tablet PO (08:37)
[2025-01-30 09:14] LABS: Bedside Glucose 116 mg/dL (74-106)
[2025-01-30 12:16] LABS: Bedside Glucose 119 mg/dL (74-106)
[2025-01-30] MEDS: oxyCODONE 5 MG Tablet 2.5 MG PO (14:01)
[2025-01-30] MEDS: Acetaminophen 500 MG Tablet 1000 MG PO (14:02)
[2025-01-30 14:05] VITALS: BP 131/86; PULSE 107; RESP 16; TEMP 36.8; O2SAT 98
[2025-01-30] MEDS: Ondansetron 4 MG/2 ML Vial IV (16:18)
[2025-01-30 16:24] VITALS: BP 128/81; PULSE 102; RESP 16; TEMP 37; O2SAT 99
[2025-01-30] MEDS: Mineral Oil/Petrolatum Cr 1.75oz Bottle 1 APPLIC TOPICAL (16:26)
[2025-01-30 17:15] LABS: Bedside Glucose 122 mg/dL (74-106)
[2025-01-30] MEDS: Insulin Lispro 100 UNIT/ML INSULN.PEN SC (21:48)
[2025-01-30] MEDS: cycloBENZAPRine HCl 10 MG Tablet PO (21:48)
[2025-01-30] MEDS: Insulin Glargine-YFGN 100 UNIT/ML Pen 20 UNIT SC (21:49)
[2025-01-30] MEDS: Atorvastatin Calcium 40 MG Tablet PO (21:50)
[2025-01-30] MEDS: Linezolid 600 MG 600 MG/300 ML BAG 200 MG IV (21:51)
[2025-01-30] MEDS: Midodrine HCl 5 MG Tablet 10 MG GT (21:52)
[2025-01-30 22:00] VITALS: BP 119/74; PULSE 105; RESP 20; TEMP 36.7; O2SAT 96
[2025-01-30 22:22] LABS: Bedside Glucose 170 mg/dL (74-106)
[2025-01-31 04:34] VITALS: BP 104/67; PULSE 67; RESP 20; TEMP 36.7; O2SAT 97
[2025-01-31] MEDS: Midodrine HCl 5 MG Tablet 10 MG GT ×2 (05:34→14:46)
[2025-01-31] MEDS: Lactulose 20 GM/30 ML UDC 10 GM PO ×2 (05:34→14:46)
[2025-01-31 06:46] LABS: Hematocrit 23.8 % (40-54); Hemoglobin 7.9 g/dL (13.0-16.5); Mean Corp Hgb Conc 33.2 g/dL (32-36); Mean Corpuscular Hgb 29.8 pg (27.0-32.0); Mean Corpuscular Volume 89.8 fL (80-94); Mean Platelet Vol. 10.6 fl (6.2-12.0); Platelet Count 108 K/mm3 (150-450); RBC Distribution Width CV 17.7 % (11.6-14.6); RBC Distribution Width SD 56.9 fl (35.1-43.9); Red Blood Count 2.65 M/mm3 (4.6-6.2); White Blood Count 5.9 K/mm3 (4.4-11.0)
[2025-01-31 07:13] LABS: Anion Gap 9 (5-15); BUN 10 mg/dL (4-19); BUN/Creat Ratio 10.7 RATIO (10-20); Calcium,Total 8.5 mg/dL (7.6-11.0); Carbon Dioxide 22.6 mmol/L (21.0-32.0); Chloride 102 mmol/L (98-108); Creatinine, Serum 0.95 mg/dL (0.70-1.20); EST Glomerular Filtration Rate 93 (>60); Estimated Creatinine Clearance 108.71 ml/min (50-250); Glucose 143 mg/dL (70-99); Potassium 3.9 mmol/L (3.3-5.1); Sodium Level 133 mmol/L (133-145)
[2025-01-31 08:24] LABS: Bedside Glucose 149 mg/dL (74-106)
[2025-01-31 09:20] VITALS: BP 124/84; PULSE 104; RESP 16; TEMP 36.4; O2SAT 100
[2025-01-31] MEDS: Spironolactone 25 MG Tablet PO (09:24)
[2025-01-31] MEDS: Spironolactone 50 MG Tablet 100 MG PO (09:24)
[2025-01-31] MEDS: Magnesium Chloride 64 MG Delay Rel.Tablet 128 MG PO (09:24)
[2025-01-31] MEDS: Thiamine Hydrochloride 100 MG Tablet PO (09:24)
[2025-01-31] MEDS: Pantoprazole Sodium 20 MG Tablet PO (09:24)
[2025-01-31] MEDS: Calcium Carb/Vitamin D 1 TABLET Tablet PO (09:25)
[2025-01-31] MEDS: Sodium Bicarbonate 650 MG Tablet PO (09:25)
[2025-01-31] MEDS: Ascorbic Acid 500 MG Tablet PO ×2 (09:25→16:42)
[2025-01-31] MEDS: Folic Acid 1 MG Tablet PO (09:25)
[2025-01-31] MEDS: Furosemide 40 MG Tablet PO (09:25)
[2025-01-31] MEDS: Zinc Sulfate 50 mg zinc (220 mg) ORAL capsule PO (09:25)
[2025-01-31] MEDS: rifAXIMin 550 MG Tablet PO (10:06)
--- NOTE | 2025-01-31 10:37 | CASEMGMT ---
Patient wants to go home and not back to [facility]. JEANNINE met with patient and he confirmed this information. Patient said he needs his coat from [facility]. He has phone numbers in that coat. Patient kept talking about his coat and wouldn't talk about anything else. JEANNINE did give patient his son's phone number and his significant other's number. JEANNINE told patient SW will call [facility] to see if someone can bring his coat to the hospital. JEANNINE asked India mcnally/cynthia planning division superintendent to ask [facility] about bringing patient's coat. Hortencia Fleming MSW LEODAN
--- NOTE | 2025-01-31 10:48 | CASEMGMT ---
Addendum entered by India Platt 01/31/25 15:58: [facility] have declined. RN CM and SW updated. India Platt DC Planning Asst. Original Note: Discharge Planning HH referral sent to [facility]. India Platt DC Planning Asst.
[2025-01-31 12:15] LABS: Bedside Glucose 179 mg/dL (74-106)
--- NOTE | 2025-01-31 12:17 | PCM.DC.SUM ---
Providers Date of Admission: 01/28/25 Date of Discharge: 01/31/25 Primary Care Physician: Dr. Jerald Sherwood MD Reason For Visit: HEPATIC ENCEPHALOPATHY Diagnosis Discharge Diagnosis (1) Hepatic encephalopathy: Status: Acute Code(s): K76.82 - Hepatic encephalopathy (2) Umbilical hernia: Status: Acute Code(s): K42.9 - Umbilical hernia without obstruction or gangrene (3) Abnormal urinalysis: Status: Acute Code(s): R82.90 - Unspecified abnormal findings in urine Medications at Discharge Home Medications rifaximin 550 mg tablet (Xifaxan) 550 mg PO BID diarrhea #60 tabs 09/02/24 acetaminophen 500 mg tablet 1,000 mg PO Q8 PRN fever or pain 10/28/24 calcium 500 mg (as carbonate)-vitamin D3 5 mcg (200 unit) tablet (Oyster Shell Calcium-Vitamin D3) 1 tab PO DAILY supplement 10/28/24 folic acid 1 mg tablet 1 mg PO DAILY supplement 10/28/24 atorvastatin 40 mg tablet 40 mg PO DAILY cholesterol 11/21/24 furosemide 20 mg tablet 40 mg PO DAILY diuretic 11/21/24 magnesium oxide 400 mg (241.3 mg magnesium) tablet 400 mg PO DAILY supplement 11/21/24 metformin 500 mg tablet,extended release 24 hr 500 mg PO QPM diabetes 11/21/24 sodium bicarbonate 650 mg tablet 650 mg PO BID supplement 11/21/24 thiamine HCl (vitamin B1) 100 mg tablet 100 mg PO DAILY supplement 11/21/24 zinc sulfate 50 mg zinc (220 mg) tablet 50 mg PO DAILY supplement 11/21/24 ascorbic acid (vitamin C) 500 mg tablet 500 mg PO BID vitamin #60 tabs 11/25/24 midodrine 10 mg tablet 10 mg PO TID blood pressure 1 month #90 tabs 11/25/24 cyclobenzaprine 10 mg tablet 10 mg PO QHS muscle relaxer 01/02/25 Held on 01/31/25. Instructions: Until you have completed your antibiotic then okay to restart ferrous sulfate 325 mg (65 mg iron) tablet (FeroSul) 325 mg PO QODAY supplement 01/02/25 insulin lispro 100 unit/mL subcutaneous pen (Humalog KwikPen (U-100) Insulin) 10 unit (0.1 mL) subcut TIDAC #0 mL 06/04/25 spironolactone 100 mg tablet 100 mg PO DAILY 1 month #30 tabs 01/21/25 spironolactone 25 mg tablet 25 mg PO DAILY 30 days #30 tabs 01/21/25 omeprazole 20 mg capsule,delayed release 20 mg PO DAILY 01/28/25 oxycodone 5 mg tablet 2.5 mg PO Q8H PRN Pain Score 4-10 Or Pre Pt/Ot 01/28/25 insulin glargine-yfgn 100 unit/mL (3 mL) subcutaneous pen 20 unit (0.2 mL) subcut QHS #15 mL 01/31/25 lactulose 10 gram/15 mL oral solution 10 g (15 mL) PO TID #3,000 mL 01/31/25 linezolid 600 mg tablet 600 mg PO BID #5 tabs 01/31/25 pen needle, diabetic 31 gauge x 5/16 (Pen Needle) #1,200 ea 01/31/25 Hospital Course Operations None Procedures - (Chest x-ray/CT abdomen pelvis) Summary of Care Provided Minutes Spent on Discharge: 39 Hospital Course: Mr. Wiggins is a 59-year-old male who presented from local [facility] facility to which she was discharged on 01/21/2025 with a fever. Patient reported that his fever at the outside facility was 101 ?F. Of note the patient was afebrile throughout his hospital course. Patient was confused on presentation unable to provide any history other than his fever the emergency department physician or the admitting physician. Patient does have a known history of liver disease and is supposed to be on lactulose and rifaximin. Med reconciliation at time of admission he was not getting his lactulose regularly and ammonia level was checked and found to be markedly elevated greater than 100. Vital signs on presentation showed a temperature of 37.1, heart rate was 98, blood pressure was 117/76, respiratory 16 and pulse ox was 98% room air. CBC showed a chronic stable anemia with hemoglobin of 8.3 and chronic stable thrombocytopenia with a platelet count 150,000. His sodium was slightly low 131 and renal function was normal. His ammonia was 108. His urine was suggestive of infection and culture was sent. BNP was within normal limits. Patient has known history of complicated UTI related to staghorn calculus that has not yet been able to be removed due to his complicated nature. He does have history of ESBL E. coli in his urine as well. He was treated at his last hospitalization for this. Due to his encephalopathy and concurrent discern for resistant organism in his urine he was admitted to PCU and placed on his scheduled lactulose as well as given IV antibiotics with meropenem due to his antimicrobial history. He had a lactic acidosis at the time of admission. It did not appear the patient was septic and this was likely due to metformin use and some mild dehydration at time of presentation. His lactate did clear. His urine culture did result on the evening of 01/30/2025 and showed VRE as well as a gram-negative lactose from monitor. Both Lana counts were less than significant for urinary tract infection however the VRE was a higher colony count than the GNR LF and with his history of staghorn calculus I discussed the case with infectious disease who recommended we treat for a total of 3 more days with linezolid at the time of discharge. His mentation improved significantly and at the time of discharge he was alert and oriented x 3. I did discuss with him the need for ongoing lactulose use and he was unclear whether he had a prescription for this so we wrote a new prescription and told him is taking 10 mL 3 times daily with a goal bowel movement of 2-3 bowel movements daily. He also remain on his rifaximin. We did recommend he go back to SNF however the patient was adamant he did not want to go back. He did fairly well with physical therapy to the point where we did feel comfortable sending him home without any concerns and he was adamant he was going home. We were able to discharge home in stable condition on 01/31/2025. A prescription for linezolid was written and he will continue this. While he is on linezolid we have instructed him to hold his Flexeril. I also wrote prescription for insulin and pen needles as well as lactulose as noted above. Patient is extremely high risk for readmission as he has a tendency to be noncompliant at home. Blood cultures were no growth at 48 hours. Patient is to follow-up with his primary care physician within 1 week. He will need referral to general surgery to address his hernias however there is no acuity to them at the time of presentation and outpatient follow-up is again recommended as it was at his last hospitalization. This was discussed with the patient. He voiced understanding. 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 I did urge him to follow-up as an outpatient with his primary care physician to get a referral to general surgery if it continues to be problematic. Const alert, oriented x3, no apparent distress, no limitations and well nourished; Negative for average body habitus or healthy appearing Constitutional Narrative: Obese, middle-aged, white male, sitting up in bed, eating breakfast and watching television, nursing at bedside, no complaints. General Appearance: cooperative, comfortable, well kempt and well developed Orientation / Consciousness: awake, oriented to person, oriented to place and oriented to time Exam Limitations: no limitations Nutritional Appearance: obese HEENT normocephalic, head/scalp atraumatic and moist oral mucous membranes Eyes EOMs intact bilaterally; Negative for conjunctivae normal Eyes Narrative: Bilateral conjunctiva pallor, no scleral icterus Neck supple Neck Narrative: Trachea midline Resp normal respiratory effort, no retractions, no use of accessory muscles and clear to auscultation bilaterally Resp Narrative: Diminished but clear Cardio regular rate, regular rhythm, S1 normal heart sound, S2 normal heart sound, no murmurs, no rub, no gallops and no clicks GI normal to inspection, nondistended, normoactive bowel sounds, soft to palpation and non-tender GI Narrative: Protuberant abdomen Extremity Extremity Narrative: 2+ bilateral lower extremity edema, no cyanosis or clubbing Skin skin turgor normal and no jaundice Skin Narrative: Scattered ecchymotic changes in various stages of healing Neuro oriented x3, moves all extremities and no focal motor deficits Neuro Narrative: Patient sleeping at the time of my evaluation, per nursing he is oriented x 3 but has intermittent confusion Speech: speech normal Psych affect normal Psych Narrative: Interacts appropriately, eye contact is good Weight / BMI Weight Weight: 110.3 kg Body Mass Index (BMI) 33.0 ABG / Lab / Microbiology Data 01/31/25 05:45 01/31/25 05:45 Laboratory: Laboratory Results - last 24 hr 01/30/25 16:30: POC Glucose 122 H 01/30/25 21:46: POC Glucose 170 H 01/31/25 05:45: WBC 5.9, RBC 2.65 L, Hgb 7.9 L, Hct 23.8 L, MCV 89.8, MCH 29.8, MCHC 33.2, RDW Std Deviation 56.9 H, RDW Coeff of Francis 17.7 H, Plt Count 108 L, MPV 10.6, Sodium 133, Potassium 3.9, Chloride 102, Carbon Dioxide 22.6, Anion Gap 9, BUN 10, Creatinine 0.95, Estim Creat Clear Calc 108.71, Est GFR (MDRD) Non-Af 93, BUN/Creatinine Ratio 10.7, Glucose 143 H, Calcium 8.5 01/31/25 08:00: POC Glucose 149 H 01/31/25 11:57: POC Glucose 179 H Microbiology: Microbiology 01/28/25 06:16 Urine, Clean Catch Urine Culture - Final Vancomycin Resist. E. faecalis GNR lactose mountain services manager 01/28/25 06:15 Blood Culture (Wb) - Anticubital Right Blood Culture - Preliminary No growth in 48 hours. 01/28/25 06:03 Blood Culture (Wb) - Left Hand Blood Culture - Preliminary No growth in 48 hours. 01/28/25 03:10 Mucosa - Nose SARS-CoV-2, Influenza & RSV (PCR) - Final D/C Instructions Discharge Diet: Low fat / Low cholesterol and 1800 Calorie Control Diet Discharge Activity: Return to Normal Activity DC O2, CPAP, BIPAP Needs Home O2 Discharge instructions: No DC home with Oxygen: No Meaningful Use Info Meaningful Use Meaningful Use Diagnoses (Choose all that apply): None applicable Ischemic Stroke Statin Dosing Therapy Reference: STATIN DOSE THERAPY REFERENCE: * Patients > 75 years receive moderate or high dose statin therapy. * Patients 75 years or YOUNGER should receive HIGH intensity statin dose unless contraindicated. You will be required to document reason for non-treatment if statin daily dose does not meet guidelines. HIGH DOSE STATIN THERAPY DAILY Atorvastatin > than or = to 40 mg Rosuvastatin > than or = to 20 mg Amlodipine + Atorvastatin > than or = to 2.5/40 mg Ezetimibe + Simvastatin 10/80 mg Simvastatin 80mg Discharge Plan Admission Admit Date/Time: 01/28/25 07:00 Primary Reason for Your Visit: Altered mental status Attending Provider: Yaritza Leo Primary Care Provider: Jerald Sherwood Consulting Providers: Boone Izquierdo Instructions Additional Instructions / Restrictions: 1. Goal bowel movements with lactulose is 2-3 bowel movements daily. If you are having more than 3 bowel movements daily please decrease your lactulose from 3 times daily to 2 times daily 2. It is very important that you are compliant with your medications and utilize them as directed Discharge Orders/Prescriptions Prescriptions: New lactulose 10 gram/15 mL Solution 10 g PO TID Qty: 3000 0RF Rx Instructions: Goal is 2-3 bowel movements daily if you are having more than this with this amount of lactulose decrease dose to twice daily from 3 times daily linezolid 600 mg Tablet 600 mg PO BID Qty: 5 0RF (DME) pen needle, diabetic [Pen Needle] 31 gauge x 5/16 needle See Rx Instructions .Route Qty: 1200 0RF Rx Instructions: As directed Continued Xifaxan 550 mg Tablet 550 mg PO BID Qty: 60 0RF ferrous sulfate [FeroSul] 325 mg (65 mg iron) tablet 325 mg PO QODAY insulin lispro [Humalog KwikPen Insulin] 100 unit/mL Insulin Pen 10 unit subcut TIDAC Qty: 0 0RF omeprazole 20 mg capsule,delayed release(DR/EC) 20 mg PO DAILY oxycodone 5 mg Tablet 2.5 mg PO Q8H PRN (Reason: Pain Score 4-10 Or Pre Pt/Ot) insulin glargine-yfgn 100 unit/mL (3 mL) Insulin Pen 20 unit subcut QHS Qty: 15 1RF folic acid 1 mg tablet 1 mg PO DAILY calcium carbonate-vitamin D3 [Oyster Shell Calcium-Vit D3] 500 mg-5 mcg (200 unit) tablet 1 tab PO DAILY acetaminophen 500 mg Tablet 1,000 mg PO Q8 PRN (Reason: fever or pain) atorvastatin 40 mg tablet 40 mg PO DAILY furosemide 20 mg tablet 40 mg PO DAILY magnesium oxide 400 mg (241.3 mg magnesium) tablet 400 mg PO DAILY sodium bicarbonate 650 mg tablet 650 mg PO BID metformin 500 mg tablet extended release 24 hr 500 mg PO QPM thiamine HCl (vitamin B1) 100 mg tablet 100 mg PO DAILY zinc sulfate 50 mg zinc (220 mg) tablet 50 mg PO DAILY midodrine 10 mg tablet 10 mg PO TID 30 Days Qty: 90 0RF Rx Instructions: do not give last dose of day after 6PM or within 4 hrs of bedtime ascorbic acid (vitamin C) 500 mg tablet 500 mg PO BID Qty: 60 2RF spironolactone 25 mg Tablet 25 mg PO DAILY 30 Days Qty: 30 2RF Rx Instructions: total 125 mg daily Hold for serum potassium more than 5.0 spironolactone 100 mg tablet 100 mg PO DAILY 30 Days Qty: 30 2RF Rx Instructions: Hold for serum potassium more than 5.0. Total 125 mg daily. Held cyclobenzaprine 10 mg tablet 10 mg PO QHS Hold Instructions: Until you have completed your antibiotic then okay to restart Discontinued insulin lispro [Humalog KwikPen Insulin] 100 unit/mL Insulin Pen See Protocol subcut ACHS Qty: 0 0RF Protocol: 4. Sliding Scale Insulin High-Med Dosing Condition: 150-199 mg/dl = 2 units Condition: 200-259 mg/dl = 4 units Condition: 260-324 mg/dl = 6 units Condition: 325-374 mg/dl = 8 units Condition: 375-409 mg/dl = 10 units Condition: 410-449 mg/dl = 11 units Condition: Greater than 449 call physician Protocol Text: Suggested for: - Patients on Total Daily Insulin Dose of 56-80 units - Patient who are known to be insulin resistant or septic HIGH MEDIUM DOSING ALGORITHM lactulose [Constulose] 10 gram/15 mL solution 15 ml PO TID PRN (Reason: constipation) Patient Comments: HASNT HAD TO TAKE Rx Instructions: Goal to have 2 soft bowel movements per day insulin glargine-yfgn 100 unit/mL (3 mL) Insulin Pen 25 unit subcut DAILY Qty: 15 3RF Referrals / Follow Up: Jerald Sherwood MD [Primary Care Provider] - Within 1 Week Disposition Disposition (needs filled in before D/C Order can be placed): Home, Self Care Charges/Coding Visit Charges Inpatient E&M: 76522 Disch Hosp >30min
[2025-01-31] MEDS: Acetaminophen 500 MG Tablet 1000 MG PO (12:29)
[2025-01-31] MEDS: oxyCODONE 5 MG Tablet 2.5 MG PO (12:30)
[2025-01-31] MEDS: Linezolid 600 MG Tablet PO (13:02)
[2025-01-31] MEDS: Insulin Lispro 100 UNIT/ML INSULN.PEN SC (13:02)
[2025-01-31] MEDS: Insulin Lispro 100 UNIT/ML INSULN.PEN 10 UNIT SC (13:02)
--- NOTE | 2025-01-31 13:43 | CASEMGMT ---
[facility] said they can bring patient's coat today between 430 and 5. SW notified patient of this information. Hortencia Fleming CONCRETE MIXER OPERATOR LEODAN
[2025-01-31 14:42] VITALS: BP 126/80; PULSE 100; RESP 18; TEMP 36.7; O2SAT 99
--- NOTE | 2025-01-31 16:28 | CASEMGMT ---
DAYSI HUGHES updated by DC senior court office assistant that [facility] has declined patient. DAYSI HUGHES called [facility] and made referral, they are unable to accept. DAYSI HUGHES in to discuss discharge planning with patient and updated regarding difficulties finding accepting HHC. DAYSI HUGHES offered outpatient thearapy, patient declined stating outpatient therapy messed him up. DAYSI HUGHES updated patient that CM can continue to send referrals to multiple agencies and work on finding accepting agency for HHC. Patient agreeable to discharge and let CM continue to send multiple referrals for HHC. Patient had no further questions or concerns. DAYSI HUGHES updated DC senior court office assistant.
[2025-01-31 17:03] LABS: Bedside Glucose 129 mg/dL (74-106)
[2025-01-31 18:35] VITALS: BP 127/86; PULSE 100; RESP 16; TEMP 36.7; O2SAT 100
--- NOTE | 2025-01-31 19:59 | NURSING ---
1930: family here for transport home. reviewed discharge instructions with patient and stressed importance of taking his lactulose and monitoring his blood sugars. pt escorted via wheelchair and pt transported home. no changes to report at this time.
--- NOTE | 2025-02-01 10:51 | CASEMGMT ---
Discharge Planning Referrals sent to the following and all declined; [facility] (d/t staffing), [facility] (OON), [facility] (OON), and [facility] (OON). DAYSI CM updated. India Platt DC Planning Asst.
--- NOTE | 2025-02-01 11:47 | CASEMGMT ---
[facility] [place] CM is Lilian Ace ([phone], [email or web address] Call placed to Lilian regarding difficulty finding HH for patient. List of agencies we have that are in network given. Lilian states that she will attempt to find other providers and follow up with me. Of note, Lilian is new to pt and had attempted to touch base with [facility] several times but her calls were not returned. India Platt DC Planning Asst.
--- NOTE | 2025-02-01 14:22 | CASEMGMT ---
Discharge Planning Follow up was received from pts Lilian HUGHES. She was unable to secure HH. She is to follow up with pt. India Platt DC Planning Asst.
== END 2025-01-31 19:40 | disposition home or self-care (01) ==
LOC: ED 03:46 → PCU 08:53
PROVIDERS: Emergency Provider Surgery; PCP Family Medicine; Visit Provider Internal Medicine
DX: K76.82 Hepatic encephalopathy (principal); G92.8 Other toxic encephalopathy; M48.54XA Collapsed vertebra, not elsewhere classified, thoracic region, initial encounter for fracture; E87.22 Chronic metabolic acidosis; E11.9 Type 2 diabetes mellitus without complications; D64.9 Anemia, unspecified; E55.9 Vitamin D deficiency, unspecified; E78.5 Hyperlipidemia, unspecified; I10 Essential (primary) hypertension; K75.81 Nonalcoholic steatohepatitis (NASH); Z79.4 Long term (current) use of insulin; I95.89 Other hypotension; K21.9 Gastro-esophageal reflux disease without esophagitis; K74.69 Other cirrhosis of liver; K40.90 Unilateral inguinal hernia, without obstruction or gangrene, not specified as recurrent; X58.XXXA Exposure to other specified factors, initial encounter; N20.0 Calculus of kidney; G89.29 Other chronic pain; Z96.0 Presence of urogenital implants; Z16.12 Extended spectrum beta lactamase (ESBL) resistance; Z91.198 Patient's noncompliance with other medical treatment and regimen for other reason; Z79.84 Long term (current) use of oral hypoglycemic drugs; Z79.899 Other long term (current) drug therapy; Z86.718 Personal history of other venous thrombosis and embolism; Z87.19 Personal history of other diseases of the digestive system; Z87.891 Personal history of nicotine dependence
CPT/HCPCS: 36415; 71046; 74177; 80048; 80053; 80076; 81001; 82140; 82962; 83605; 83690; 83735; 83880; 84100; 84484; 85025; 85027; 85610; 85730; 87040; 87077; 87086; 87088; 87186; 87631; 92526; 92610; 93005; 97116; 97162; 97166; 97530; 97535; 97802; 99285; J2020; J2185; Q9967; A4216; J0290; J2405

== ENCOUNTER 2025-02-07 19:19 | Emergency (ER) | payer MEDICAID, SELFPAY ==
[2025-02-07 19:24] VITALS: BP 94/57; PULSE 63; RESP 18; TEMP 36.4; O2SAT 99
[2025-02-07 21:16] LABS: Hematocrit 28.8 % (40-54); Hemoglobin 9.2 g/dL (13.0-16.5); Immature Granulocytes Count 0.040 X10^3/uL (0.0-0.0); Mean Corp Hgb Conc 31.9 g/dL (32-36); Mean Corpuscular Volume 90.9 fL (80-94); Mean Platelet Vol. 10.1 fl (6.2-12.0); NRBC Flagged by Analyzer 0 % (0-5); Platelet Count 131 K/mm3 (150-450); RBC Distribution Width CV 17.9 % (11.6-14.6); RBC Distribution Width SD 58.3 fl (35.1-43.9); Red Blood Count 3.17 M/mm3 (4.6-6.2); White Blood Count 10.8 K/mm3 (4.4-11.0)
[2025-02-07 21:45] LABS: AST(SGOT) 55 U/L (<=37); Alanine Aminotransfer ALT/SGPT 30 U/L (<=46); Albumin, Serum 2.2 g/dL (3.5-5.0); Alkaline Phosphatase 218 U/L (40-129); Anion Gap 9 (5-15); BUN 15 mg/dL (4-19); BUN/Creat Ratio 13.9 RATIO (10-20); Calcium,Total 8.4 mg/dL (7.6-11.0); Carbon Dioxide 22.7 mmol/L (21.0-32.0); Chloride 106 mmol/L (98-108); Globulin 3.5 g/dL (2.2-4.2); Glucose 142 mg/dL (70-99); Lipase 35 U/L (13-75); Potassium 3.7 mmol/L (3.3-5.1)
[2025-02-07 22:19] VITALS: BP 98/68; PULSE 58; RESP 20; O2SAT 100
[2025-02-07 22:20] VITALS: BMI 34.8
--- NOTE | 2025-02-07 22:47 | CT_ITS ---
PROCEDURE: ABDOMEN/PELVIS W IV CONT ONLY 02/07/2025 REASON FOR EXAM: ? INCARCERATED UMBILICAL HERNIA TECHNIQUE: ABDOMEN/PELVIS W IV CONT ONLY Coronal and Sagittal reconstruction series were provided. CONTRAST: Isovue-370 VOLUME: 100 mL One or more dose reduction techniques were used (e.g., Automated exposure control, adjustment of the mA and/or kV according to patient size, use of iterative reconstruction technique. RADIATION DOSE SUMMARY: CTDlvol: 23.53 mGy DLP: 1674.89 mGycm COMPARISON: None FINDINGS: The visualized lung bases are unremarkable. The heart is normal in size. The coronary arteries are calcified. Normal liver. The gallbladder is distended with multiple calcified stones in its neck. Normal extrahepatic biliary system. The spleen is enlarged. Multiple perisplenic varices are seen. Normal pancreas. Normal bilateral adrenal glands. Normal size of the right kidney. There is no right renal mass. There are no right renal calculi. There is no right hydronephrosis. Normal visualized right ureter. Normal size of the left kidney. There is no left renal mass. Large staghorn stone is seen in the left kidney with a double-J stent in place. 1.1 cm cyst is seen in the middle pole. There is no left hydronephrosis. Normal visualized left ureter. Normal visualized stomach. Normal small intestine. Normal colon. The appendix is visualized and appears normal. Moderate amount of free ascitic fluid is seen. Normal abdominal aorta. Scattered atherosclerotic calcifications are seen in the aortic wall. Normal inferior vena cava. Normal retroperitoneum. Normal urinary bladder. There is no pelvic mass lesion or lymphadenopathy. There is no pelvic fluid. Fat containing umbilical hernia with thickening of the herniated fat consistent with incarceration/strangulation. Fat and fluid containing left inguinal hernia is seen. Diffuse edema of the abdominal wall. Normal osseous structures. CT/Abdomen/Pelvis W IV Cont ONLY IMPRESSION: Findings of liver cirrhosis. Splenomegaly with perisplenic varices consistent with portal hypertension. Cholelithiasis, no cholecystitis. Ascites. Fat containing umbilical hernia with thickening of the herniated fat suggestive of incarceration/strangulation. Fat and fluid containing left inguinal hernia. Large left renal staghorn stone with double-J stent in place. Anasarca. Reading Location: [place] [id number]
[2025-02-07] MEDS: fentaNYL 100 MCG/2 ML Ampul 25 MCG IV (22:55)
[2025-02-07] MEDS: 0.9% Normal Saline (500mL Bag) 500 ML 999 ML IV (22:55)
[2025-02-08 00:03] VITALS: BP 115/66
--- NOTE | 2025-02-08 01:11 | EDS_ITS ---
HPI History of Present Illness Chief Complaint: Abd Pain Informant: patient Narrative Narrative: Patient is a 59-year-old male with past medical history of cirrhosis as well as insulin-dependent diabetes. He was admitted to the hospital roughly 1 week ago secondary to hepatic encephalopathy and discharged. He states he has been doing well but has noticed that he has been having increased fluid building up within his abdomen and now there is a lump and pain. Secondary to the worsening pain he presents for evaluation. He states that there has been no bouts of vomiting and he denies any recent bouts of constipation fevers chills or dysuria. [facility] Medical History (Updated 02/08/25 @ 03:[address] Mina Blood, DO) VRE (vancomycin resistant enterococcus) culture positive Spinal stenosis, lumbar region with neurogenic claudication Hepatic encephalopathy Umbilical hernia Chronic hyponatremia Weakness Diarrhea Sepsis Acidosis, lactic Acute hypotension Acute UTI Chronic hypotension Obesity (BMI 30-39.9) Chronic back pain ISABEL (acute kidney injury) Hypotension Hyperbilirubinemia Liver cirrhosis secondary to HARRIS (nonalcoholic steatohepatitis) HLD (hyperlipidemia) HTN (hypertension) Thrombocytopenia Chronic anemia Former tobacco use Diabetes mellitus, type 2 ABBY on CPAP Back pain Home Medications ?Medication ?Instructions ?Recorded ?Last Taken ?Type rifaximin 550 mg tablet (Xifaxan) 550 mg PO BID diarrh ea #60 tabs 09/02/24 11/28/24 Rx acetaminophen 500 mg tablet 1,000 mg PO Q8 PRN fever o r pain 10/28/24 Unknown History calcium 500 mg (as 1 tab PO DAILY supplement 11/28/24 History carbonate)-vitamin D3 5 mcg (200 unit) tablet (Oyster Shell Calcium-Vitamin D3) folic acid 1 mg tablet 1 mg PO DAILY supplement 11/28/24 History atorvastatin 40 mg tablet 40 mg PO DAILY cholesterol 0 11/21/24 11/27/24 History furosemide 20 mg tablet 40 mg PO DAILY diuretic 11/0311/28/24 History magnesium oxide 400 mg (241.3 mg 400 mg PO DAILY suppl ement 11/21/24 11/28/24 History magnesium) tablet metformin 500 mg tablet,extended 500 mg PO QPM diabete s 11/21/24 11/27/24 History release 24 hr sodium bicarbonate 650 mg tablet 650 mg PO BID supplem ent 11/21/24 11/28/24 History thiamine HCl (vitamin B1) 100 mg 100 mg PO DAILY suppl ement 11/21/24 Unknown History tablet zinc sulfate 50 mg zinc (220 mg) 50 mg PO DAILY supple ment 11/21/24 11/28/24 History tablet ascorbic acid (vitamin C) 500 mg 500 mg PO BID vitamin #60 tabs 11/25/24 11/28/24 Rx tablet midodrine 10 mg tablet 10 mg PO TID blood pressure 1 11/25/24 Unknown Rx month #90 tabs cyclobenzaprine 10 mg tablet 10 mg PO QHS muscle relax er 01/02/25 Unknown History Held on 01/31/25. Instructions: Until you have completed your antibiotic then okay to restart ferrous sulfate 325 mg (65 mg 325 mg PO QODAY suppleme nt 01/02/25 Unknown History iron) tablet (FeroSul) insulin lispro 100 unit/mL 10 unit (0.1 mL) subcut TID AC #0 mL 01/05/25 Unknown Rx subcutaneous pen (Humalog KwikPen (U-100) Insulin) spironolactone 100 mg tablet 100 mg PO DAILY 1 month # 30 tabs 01/21/25 Unknown Rx spironolactone 25 mg tablet 25 mg PO DAILY 30 days #30 tabs 01/21/25 Unknown Rx omeprazole 20 mg capsule,delayed 20 mg PO DAILY Unknown History release oxycodone 5 mg tablet 2.5 mg PO Q8H PRN Pain Score 4-10 01/28/25 Unknown History Or Pre Pt/Ot insulin glargine-yfgn 100 unit/mL 20 unit (0.2 mL) sub cut QHS #15 mL 01/31/25 Unknown Rx (3 mL) subcutaneous pen lactulose 10 gram/15 mL oral 10 g (15 mL) PO TID #3,00 0 mL 01/31/25 Unknown Rx solution linezolid 600 mg tablet 600 mg PO BID #5 tabs Unknown Rx pen needle, diabetic 31 gauge x #1,200 ea 01/31/25 Unk nown Rx 5/16 (Pen Needle) oxycodone 5 mg tablet 5 mg PO Q6H PRN pain 3 days #12 02/08/25 Unknown Rx tabs Allergy/AdvReac Type Severity Reaction Status Date / Time No Known Allergies Allergy Verified 02/07/25 19:23 Family History Mother Heart disease Hypertension CAD (coronary artery disease) Myocardial infarction Father Hypertension Heart disease Heart failure Surgical History History of tonsillectomy and adenoidectomy Social History household members: significant other Smoking Status: Former smoker how long ago did patient quit smoking: Quit ~ 3-4 months prior (fall 2023), smoked 1.5 ppd since teen until quit. alcohol intake: never substance use type: does not use ROS ROS ED Constitutional Constitutional ED: Denies chills or fever(s) Eyes Eyes: Denies change in vision ENT ENT ED: Denies sore throat Cardiovascular Cardiovascular: Denies chest pain Respiratory/Chest Respiratory/Chest: Denies cough or dyspnea Gastrointestinal Gastrointestinal: Reports abdominal pain and nausea; Denies constipation, diarrhea or vomiting Genitourinary Genitourinary ED: Denies dysuria Musculoskeletal Musculoskeletal: Denies back pain Integumentary Denies rash Neurologic Neurologic: Denies headache(s) Hematologic/Lymphatic Hematologic/Lymphatic: Reports easy bleeding and easy bruising EXAM Physical Exam Const Vital Signs: 02/07/25 19:24 02/07/25 22:19 02/08/25 00:03 Temperature 97.6 F L Temperature Source Temporal Pulse Rate 63 58 L Respiratory Rate 18 20 H Blood Pressure 94/57 L 98/68 115/66 Blood Pressure Mean 69 78 82 Pulse Ox 99 100 Oxygen Delivery Method Room Air Room Air 02/08/25 01:26 Temperature 97.6 F L Temperature Source Pulse Rate 62 Respiratory Rate 18 Blood Pressure 97/63 Blood Pressure Mean 74 Pulse Ox 100 Oxygen Delivery Method Positive well nourished, well developed and obese General Appearance ED: well developed Nutritional Appearance: obese HEENT HEENT Narrative: Normocephalic atraumatic Eyes PERRL and EOMs intact bilaterally Neck supple and no JVD Neck Narrative: No nuchal rigidity or meningeal signs Resp normal respiratory effort and clear to auscultation bilaterally Resp Narrative: Breath sounds are diminished throughout but overall clear to auscultation without signs of respiratory distress Cardio regular rate and regular rhythm Rate: other Other Details: Radial and carotid pulses are equal and symmetric GI GI Narrative: There is mild abdominal distention with positive fluid wave consistent with ascites There is an umbilical hernia present as well and there is pain with palpation at the hernia site with difficulty reducing the hernia concerning for incarceration. No pulsatile mass. No peritoneal signs Auscultation: normoactive bowel sounds Palpation: soft Extremity Extremity Narrative: +2-3 pitting edema of the bilateral lower extremities is equal and symmetric and consistent with worsening ascites Negative Homans' sign bilaterally Neuro oriented x3, CN's II-XII intact bilaterally and no sensory deficits noted Sensorium / Orientation: alert Psych Psych Narrative: Patient has a flat affect Skin Skin Narrative: Patient has mild jaundice consistent with history of cirrhosis MDM MDM MDM Narrative Medical decision making narrative: Patient presented to the ER complaining of abdominal pain. His exam is consistent with worsening ascites secondary to his chronic finding of cirrhosis. However on exam he does have a ventral hernia that he states is the main cause of his pain and it does feel to be incarcerated upon initial evaluation. Basic blood work was obtained to check for potential signs of infection versus acute kidney injury versus potential pancreatitis. Lipase is normal going against pancreatitis creatinine is normal going against ISABEL and his white count is normal without left shift going against secondary infection. An ice pack was placed over top the ventral hernia and then manual pressure was applied. There was spontaneous reduction of the hernia. In order to ensure that the hernia had been reduced and that there is no persistent incarceration or secondary cause for abdominal pain such as small bowel obstruction or intestinal abscess or perforation I did add a CT scan with IV contrast. CT scan confirmed a ventral hernia but states that there is fat within the hernia that shows changes consistent with incarceration but there is no intestine within the hernia. Therefore at this time the patient's vitals are stable the exam and CT scan correlate that the patient did have an incarcerated hernia but as it contains fat in that intestine my concern for intestinal necrosis and perforation therefore is very low and he does not need to be admitted or emergently seen by general surgery as fat necrosis is a nonemergent [id number] process. The patient will be given pain medication secondary to this but as there is no signs of intestinal obstruction or intestinal incarceration or perforation he is otherwise safe for discharge History & Record Review Discussion w/independent historian: Patient Lab Data Attestation: I reviewed the patient's lab results. Labs: Laboratory Results - last 24 hr 02/07/25 21:10 WBC 10.8 RBC 3.17 L Hgb 9.2 L Hct 28.8 L MCV 90.9 MCH 29.0 MCHC 31.9 L RDW Std Deviation 58.3 H RDW Coeff of Francis 17.9 H Plt Count 131 L MPV 10.1 Immature Gran % (Auto) 0.400 Neut % (Auto) 72.8 H Lymph % (Auto) 12.8 L [place] % (Auto) 8.1 Eos % (Auto) 5.4 H Baso % (Auto) 0.5 Absolute Neuts (auto) 7.9 H Absolute Lymphs (auto) 1.39 Nucleated RBC % 0 Sodium 137 Potassium 3.7 Chloride 106 Carbon Dioxide 22.7 Anion Gap 9 BUN 15 Creatinine 1.05 Est GFR (MDRD) Non-Af 82 BUN/Creatinine Ratio 13.9 Glucose 142 H Calcium 8.4 Total Bilirubin 1.92 H AST 55 H ALT 30 Alkaline Phosphatase 218 H Total Protein 5.8 L Albumin 2.2 L Globulin 3.5 Albumin/Globulin Ratio 0.6 L Lipase 35 Radiography Diagnostic Testing: Clinical Impression(s) from Imaging Studies Abdomen/Pelvis CT 02/07/25 22:47 IMPRESSION: Findings of liver cirrhosis. Splenomegaly with perisplenic varices consistent with portal hypertension. Cholelithiasis, no cholecystitis. Ascites. Fat containing umbilical hernia with thickening of the herniated fat suggestive of incarceration/strangulation. Fat and fluid containing left inguinal hernia. Large left renal staghorn stone with double-J stent in place. Anasarca. Reading Location: [place] [address] Discharge Plan Triage Chief Complaint: Abd Pain ED Provider: Mina Blood Dx/Rx/DC Orders Clinical Impression: Ventral hernia, Abdominal ascites, Hepatic cirrhosis, Insulin dependent diabetes mellitus Instructions: ED Hernia (Adult) Prescriptions: New oxycodone 5 mg tablet 5 mg PO Q6H PRN (Reason: pain) 3 Days Qty: 12 0RF No Action Xifaxan 550 mg Tablet 550 mg PO BID Qty: 60 0RF cyclobenzaprine 10 mg tablet 10 mg PO QHS ferrous sulfate [FeroSul] 325 mg (65 mg iron) tablet 325 mg PO QODAY insulin lispro [Humalog KwikPen Insulin] 100 unit/mL Insulin Pen 10 unit subcut TIDAC Qty: 0 0RF omeprazole 20 mg capsule,delayed release(DR/EC) 20 mg PO DAILY oxycodone 5 mg Tablet 2.5 mg PO Q8H PRN (Reason: Pain Score 4-10 Or Pre Pt/Ot) lactulose 10 gram/15 mL Solution 10 g PO TID Qty: 3000 0RF Rx Instructions: Goal is 2-3 bowel movements daily if you are having more than this with this amount of lactulose decrease dose to twice daily from 3 times daily linezolid 600 mg Tablet 600 mg PO BID Qty: 5 0RF insulin glargine-yfgn 100 unit/mL (3 mL) Insulin Pen 20 unit subcut QHS Qty: 15 1RF (DME) pen needle, diabetic [Pen Needle] 31 gauge x 5/16 needle See Rx Instructions .Route Qty: 1200 0RF Rx Instructions: As directed folic acid 1 mg tablet 1 mg PO DAILY calcium carbonate-vitamin D3 [Oyster Shell Calcium-Vit D3] 500 mg-5 mcg (200 unit) tablet 1 tab PO DAILY acetaminophen 500 mg Tablet 1,000 mg PO Q8 PRN (Reason: fever or pain) atorvastatin 40 mg tablet 40 mg PO DAILY furosemide 20 mg tablet 40 mg PO DAILY magnesium oxide 400 mg (241.3 mg magnesium) tablet 400 mg PO DAILY sodium bicarbonate 650 mg tablet 650 mg PO BID metformin 500 mg tablet extended release 24 hr 500 mg PO QPM thiamine HCl (vitamin B1) 100 mg tablet 100 mg PO DAILY zinc sulfate 50 mg zinc (220 mg) tablet 50 mg PO DAILY midodrine 10 mg tablet 10 mg PO TID 30 Days Qty: 90 0RF Rx Instructions: do not give last dose of day after 6PM or within 4 hrs of bedtime ascorbic acid (vitamin C) 500 mg tablet 500 mg PO BID Qty: 60 2RF spironolactone 25 mg Tablet 25 mg PO DAILY 30 Days Qty: 30 2RF Rx Instructions: total 125 mg daily Hold for serum potassium more than 5.0 spironolactone 100 mg tablet 100 mg PO DAILY 30 Days Qty: 30 2RF Rx Instructions: Hold for serum potassium more than 5.0. Total 125 mg daily. Other Ambulatory Orders: Paracentesis with US (Routine) Facility: [facility] - Location: [facility] Ordered By: Dr. Mina Blood Primary Care Provider: Jerald Sherwood Referrals: Jerald Sherwood MD [Primary Care Provider] - Jefferson Malave MD [Med Staff - Active Staff] - Activity Restrictions/Additional Instructions: Your CT scan showed you have a ventral hernia which is a hernia through the bellybutton. At this time it contains a piece of fat and that is what is causing the increased pain. However as there is no intestine stuck in the hernia and there is no sign of gangrene or bowel blockage there is no need for emergent surgery. Take the prescribed pain medication as directed to help control symptoms and follow-up with the general surgeon to discuss further treatment options. Return to the ER should you have any further concerns. Print Language: Irish Disposition Disposition: Home, Self Care
[2025-02-08 01:26] VITALS: BP 97/63; PULSE 62; RESP 18; TEMP 36.4; O2SAT 100
== END 2025-02-08 03:43 | disposition home or self-care (01) ==
PROVIDERS: Emergency Provider Emergency Medicine; PCP Family Medicine; Visit Provider Emergency Medicine
DX: K43.6 Other and unspecified ventral hernia with obstruction, without gangrene (principal); K74.60 Unspecified cirrhosis of liver; Z79.4 Long term (current) use of insulin; E11.9 Type 2 diabetes mellitus without complications; R18.8 Other ascites; I10 Essential (primary) hypertension; E78.5 Hyperlipidemia, unspecified; M54.9 Dorsalgia, unspecified; G89.29 Other chronic pain; G47.33 Obstructive sleep apnea (adult) (pediatric); Z79.84 Long term (current) use of oral hypoglycemic drugs; Z79.899 Other long term (current) drug therapy; Z87.891 Personal history of nicotine dependence
CPT/HCPCS: 74177; 80053; 83690; 85025; 96361; 96374; 96375; 99285; Q9967; A4216; J2405

== ENCOUNTER → 2025-02-11 | Outpatient (CLI) | payer MEDICAID, SELFPAY ==
--- NOTE | 2025-02-11 11:45 | US_ITS ---
PROCEDURE: PARACENTESIS WITH US 02/11/2025 REASON FOR EXAM: ASCITES SECONDARY TO CIRRHOSIS TECHNIQUE: PARACENTESIS WITH US The procedure as well as the benefits and possible complications were explained to the patient. Informed consent was obtained. The overlying skin was prepped and draped in the usual sterile fashion. Following local anesthetic application, a 5 Welsh catheter was placed into the collection. 1750 mL of lexis colored fluid was aspirated. COMPARISON: Prior study dated January 18, 2025. FINDINGS: Successful paracentesis with removal of 1750 mL of lexis colored fluid. US/Paracentesis with US IMPRESSION: Successful paracentesis. The patient tolerated the procedure well. No immedia te complication was seen. [facility]
[2025-02-11] MEDS: Lidocaine 2% (20 ml mdv) 20 ML Vial INFILT (12:10)
--- NOTE | 2025-02-11 12:31 | PCM.OPRPT ---
Multi Select Codes Radiology Radiology US Procedures: 43071 Paracentesis Operative Report (Standard) Operative Information Date of Procedure: 02/11/25 Pre-Operative Diagnosis: Ascites Post-Operative Diagnosis: Ascites Surgery/Procedure Performed: Ultrasound-guided paracentesis shadowgraph scale operator: No Type of Anesthesia: Local Procedure Start Time: 12:02 Procedure Stop Time: 12:25 Select all DRAINS/GRAFTS/IMPLANTS that apply: None Estimated Blood Loss: 0 Specimen collected: No Description of surgery: PROCEDURE: Ultrasound guided paracentesis ORDERING PROVIDER: Dr. Blood INDICATION: Male, 59 years old. Ascites. PROVIDER: VALERIE Olson TECHNIQUE: The risks, benefits, and alternatives to the procedure were explained to the patient. The specific risks of bleeding, infection, and damage to bowel were detailed and accepted. Witnessed informed consent was obtained. The abdomen was ultrasonographically surveyed. An appropriate pocket of fluid was identified in the left upper quadrant. The skin was prepped with chlorhexidine and sterile field established. 2% lidocaine was used for local anesthetic. Using ultrasound guidance, the peritoneal cavity was accessed with a 5-[place] Islander paracentesis needle/catheter system. The trocar was removed. A total of 1750 ml of clear yellow colored fluid was removed from the peritoneal cavity. The catheter was removed and a sterile dressing was applied. Patient reported prior site drainage post paracentesis; therefore, Surgifoam was applied. There was no oozing noted from the site today. The procedure was well tolerated without any immediate complications. The procedure was proctored by interventional radiologist Dr. Brunson. IMPRESSION: Successful ultrasound guided paracentesis with left upper quadrant access site. Surgical Findings: None Complications Complications: No
[2025-02-11 12:33] VITALS: BP 104/53; PULSE 64; RESP 18; TEMP 36.3; O2SAT 99
[2025-02-11 12:34] VITALS: BP 92/53; PULSE 63; RESP 18; O2SAT 99
[2025-02-11 12:35] VITALS: BP 85/55; PULSE 63; RESP 18; O2SAT 100
== END | disposition home or self-care (01) ==
LOC: US 11:43
PROVIDERS: PCP Family Medicine; Referring Provider Emergency Medicine; Visit Provider Emergency Medicine
DX: K74.60 Unspecified cirrhosis of liver (principal); R18.8 Other ascites
CPT/HCPCS: 49083

== ENCOUNTER 2025-02-13 16:29 | Emergency (ER) | payer MEDICAID, SELFPAY ==
[2025-02-13 16:30] VITALS: BP 107/62; PULSE 62; RESP 18; TEMP 36.7; O2SAT 97; BMI 33.0
--- NOTE | 2025-02-13 16:41 | EX.ED.DYSGE1 ---
HPI History of Present Illness Chief Complaint: Abd Pain [facility] Medical History (Updated 02/13/25 @ 20:[address] Luis Carlos Anderson, DO) VRE (vancomycin resistant enterococcus) culture positive Spinal stenosis, lumbar region with neurogenic claudication Hepatic encephalopathy Umbilical hernia Chronic hyponatremia Weakness Diarrhea Sepsis Acidosis, lactic Acute hypotension Acute UTI Chronic hypotension Obesity (BMI 30-39.9) Chronic back pain ISABEL (acute kidney injury) Hypotension Hyperbilirubinemia Liver cirrhosis secondary to HARRIS (nonalcoholic steatohepatitis) HLD (hyperlipidemia) HTN (hypertension) Thrombocytopenia Chronic anemia Former tobacco use Diabetes mellitus, type 2 ABBY on CPAP Back pain Home Medications ?Medication ?Instructions ?Recorded ?Last Taken ?Type rifaximin 550 mg tablet (Xifaxan) 550 mg PO BID diarrhea #60 tabs 09/02/24 11/28/24 Rx acetaminophen 500 mg tablet 1,000 mg PO Q8 PRN fever or pain 10/28/24 Unknown History calcium 500 mg (as 1 tab PO DAILY supplement 10/28/24 11/28/24 History carbonate)-vitamin D3 5 mcg (200 unit) tablet (Oyster Shell Calcium-Vitamin D3) folic acid 1 mg tablet 1 mg PO DAILY supplement 10/28/24 11/28/24 History atorvastatin 40 mg tablet 40 mg PO DAILY cholesterol 11/21/24 11/27/24 History furosemide 20 mg tablet 40 mg PO DAILY diuretic 11/21/24 11/28/24 History magnesium oxide 400 mg (241.3 mg 400 mg PO DAILY supplement 11/21/24 11/28/24 History magnesium) tablet metformin 500 mg tablet,extended 500 mg PO QPM diabetes 11/21/24 11/27/24 History release 24 hr sodium bicarbonate 650 mg tablet 650 mg PO BID supplement 11/21/24 11/28/24 History thiamine HCl (vitamin B1) 100 mg 100 mg PO DAILY supplement 11/21/24 Unknown History tablet zinc sulfate 50 mg zinc (220 mg) 50 mg PO DAILY supplement 11/21/24 11/28/24 History tablet ascorbic acid (vitamin C) 500 mg 500 mg PO BID vitamin #60 tabs 11/25/24 11/28/24 Rx tablet midodrine 10 mg tablet 10 mg PO TID blood pressure 1 11/25/24 Unknown Rx month #90 tabs cyclobenzaprine 10 mg tablet 10 mg PO QHS muscle relaxer 01/02/25 Unknown History Held on 01/31/25. Instructions: Until you have completed your antibiotic then okay to restart ferrous sulfate 325 mg (65 mg 325 mg PO QODAY supplement 01/02/25 Unknown History iron) tablet (FeroSul) insulin lispro 100 unit/mL 10 unit (0.1 mL) subcut TIDAC #0 mL 01/05/25 Unknown Rx subcutaneous pen (Humalog KwikPen (U-100) Insulin) spironolactone 100 mg tablet 100 mg PO DAILY 1 month #30 tabs 01/21/25 Unknown Rx spironolactone 25 mg tablet 25 mg PO DAILY 30 days #30 tabs 01/21/25 Unknown Rx omeprazole 20 mg capsule,delayed 20 mg PO DAILY 01/28/25 Unknown History release oxycodone 5 mg tablet 2.5 mg PO Q8H PRN Pain Score 4-10 01/28/25 Unknown History Or Pre Pt/Ot insulin glargine-yfgn 100 unit/mL 20 unit (0.2 mL) subcut QHS #15 mL 01/31/25 Unknown Rx (3 mL) subcutaneous pen lactulose 10 gram/15 mL oral 10 g (15 mL) PO TID #3,000 mL 01/31/25 Unknown Rx solution linezolid 600 mg tablet 600 mg PO BID #5 tabs 01/31/25 Unknown Rx pen needle, diabetic 31 gauge x #1,200 ea 01/31/25 Unknown Rx 5/16 (Pen Needle) oxycodone 5 mg tablet 5 mg PO Q6H PRN pain 3 days #12 02/08/25 Unknown Rx tabs Allergy/AdvReac Type Severity Reaction Status Date / Time No Known Allergies Allergy Verified 02/13/25 16:39 Family History Mother Heart disease Hypertension CAD (coronary artery disease) Myocardial infarction Father Hypertension Heart disease Heart failure Surgical History History of tonsillectomy and adenoidectomy Social History household members: significant other Smoking Status: Former smoker how long ago did patient quit smoking: Quit ~ 3-4 months prior (fall 2023), smoked 1.5 ppd since teen until quit. alcohol intake: never substance use type: does not use EXAM Physical Exam Const Vital Signs: 02/13/25 16:30 02/13/25 18:30 02/13/25 20:00 Temperature 98.1 F Temperature Source Oral Pulse Rate 62 60 61 Respiratory Rate 18 16 18 Blood Pressure 107/62 94/58 L 94/57 L Blood Pressure Mean 77 70 69 Pulse Ox 97 100 100 Oxygen Delivery Method Room Air Room Air Room Air 02/13/25 21:17 Temperature 98.8 F Temperature Source Pulse Rate 59 L Respiratory Rate 16 Blood Pressure 97/75 Blood Pressure Mean 82 Pulse Ox 100 Oxygen Delivery Method MDM MDM MDM Narrative Medical decision making narrative: HISTORY OF PRESENT ILLNESS: Chief complaint: Abdominal pain 59-year-old male history of diabetes, hepatic cirrhosis, chronic abdominal pain, presents with abdominal pain. Notes 8/10 abdominal pain diffusely. Denies fevers, vomiting, diarrhea, dysuria, frequency, urgency. Notes he feels diffusely weak. Denies chest pain or shortness of breath however. Notes he underwent a recent paracentesis 3 days ago. REVIEW OF SYSTEMS: Pertinent positives: Abdominal pain Pertinent negatives: Nausea, vomiting, diarrhea, dysuria, frequency, urgency PHYSICAL EXAM: Nursing triage notes reviewed, Vital signs reviewed Constitutional: please see mdm HENT: MMM Eyes: Pupils equal round and reactive to light, Extraocular muscles intact Neck: No stridor, no JVD, full neck ROM Lungs: Clear to auscultation, No wheezing or rales. No increased work of breathing, no conversational dyspnea, no accessory muscle use, no nasal flaring. No respiratory distress noted Heart: Regular rate and rhythm, No murmurs, No rubs and No gallops, 2+ distal pulses (radial, femoral, posterior tibial) in all extremities Abdomen: Soft, diffusely tender. Easily reducible umbilical hernia. No Vazquez sign. No rigidity, rebound or guarding, no obvious peritoneal signs, no palpable pulsatile abdominal masses, no auscultated abdominal bruit : No CVAT Extremities: No edema Neuro: No new focal neurological deficits, cranial nerves II through XII intact, 5/5 strength in all present extremities. Intact sensation to light touch in all present extremities, 2+ reflexes bilateral patella tendons. Skin: No rash or lesions noted MEDICAL DECISION MAKING: Chief Complaint: please see HPI External records reviewed: Seen for similar complaints 5 days ago. During his ED visit patient was reported to have mild distention with a positive fluid wave consistent with ascites. At that time exam was concerning for worsening ascites. As well as a ventral hernia. Blood work and CT scan were obtained. CT scan confirmed ventral hernia. But no obvious bowel obstruction. Factors affecting care: as per [facility] Social determinants of health: none History obtained from others: none Consults: none [facility] Narrative: The patient was initially hemodynamically stable, afebrile and nontoxic-appearing. Exam without tense ascites. No obvious peritoneal signs. Further reducible umbilical hernia noted. I considered the following differential diagnosis: Decompensated cirrhosis, perforation, obstruction, acute pancreatitis, UTI I obtained a broad lab and imaging evaluation to further determine if the patient was suffering from a life-threatening etiology. I initially treated the patient with 4 mg of IV Zofran and 2 mg IV morphine ALL IMAGES (IF OBTAINED) HAVE BEEN PERSONALLY REVIEWED AND INTERPRETED BY MYSELF. CBC with no leukocytosis, noted mild anemia at baseline, noted thrombocytopenia is also essentially baseline Lipase is wnl indicating no pancreatic inflammation. LFTs with elevation in bilirubin, liver enzymes and alk phos consistent with portal hypertension and slight decompensation of cirrhosis BMP with baseline elevated creatinine which is essentially baseline and similar to prior study specifically creatinine from 01/10/2025, noted metabolic acidosis bicarb 18, no other septic electrolyte abnormality CT scan abdomen pelvis shows known cirrhosis, ascites and portal hypertension likely explain the patient's liver function abnormality Repeat abdominal exam remained benign. No active quadrant tenderness. Negative Vazquez sign. Patient is retired p.o. His vitals remained stable. Is appropriate discharge home and close outpatient GI follow-up The patient and/or family, caregivers express understanding. The patient and/or family, caregivers agrees with the plan. Shared decision making: I will have a discussion with the patient and or visitors regarding risk/benefits of further testing or admission. They will be made aware of of the risk/benefits inherent in this decision they will be given the opportunity to voice understanding. Total critical care time today provided was at least 0 minutes. This excludes separately billable procedures. Critical care time (if documented) is secondary to the patient having high probability of clinically significant/life threatening deterioration in the patient's condition which required my urgent intervention. Impression: 1. Acute on chronic abdominal pain 2. History of hepatic cirrhosis 3. Hyperbilirubinemia Dispo: Discharge This note was generated with [employer] dictation software. It may contain incorrect words, spelling, and punctuation that were not noted in review of the chart prior to signing. Lab Data Labs: Laboratory Results - last 24 hr 02/13/25 18:23 WBC 8.6 RBC 2.84 L Hgb 8.3 L Hct 24.1 L MCV 84.9 MCH 29.2 MCHC 34.4 RDW Std Deviation 52.3 H RDW Coeff of Francis 17.4 H Plt Count 83 L MPV 10.8 Immature Gran % (Auto) 0.500 Neut % (Auto) 64.1 Lymph % (Auto) 13.9 L Duval % (Auto) 16.1 H Eos % (Auto) 5.1 H Baso % (Auto) 0.3 Absolute Neuts (auto) 5.5 Absolute Lymphs (auto) 1.20 Nucleated RBC % 0 Differential Comment SCANNED Platelet Estimate MOD DEC Sodium 135 Potassium 3.4 Chloride 102 Carbon Dioxide 18.4 L Anion Gap 14 BUN 25 H Creatinine 1.78 H Estim Creat Clear Calc 53.12 Est GFR (MDRD) Non-Af 44 L BUN/Creatinine Ratio 14.3 Glucose 169 H Calcium 8.3 Total Bilirubin 6.20 H AST 120 H ALT 53 H Alkaline Phosphatase 335 H Total Protein 5.8 L Albumin 2.2 L Globulin 3.7 Albumin/Globulin Ratio 0.6 L Lipase 60 Radiography Diagnostic Testing: Clinical Impression(s) from Imaging Studies Abdomen/Pelvis CT 02/13/25 17:13 IMPRESSION: 1. Stable appearance of the abdomen and pelvis compared to CT performed 02/07/2025. There is a moderate volume of ascites which is minimally changed. 2. Numerous unchanged findings as detailed above, including cirrhosis with stigmata of portal hypertension, left ureteral stent with a left staghorn calculus, and cholelithiasis. Reading Location: [id number] Discharge Plan Triage Chief Complaint: Abd Pain ED Provider: Luis Carlos Anderson Dx/Rx/DC Orders Clinical Impression: Hepatic cirrhosis, Abdominal pain Prescriptions: No Action Xifaxan 550 mg Tablet 550 mg PO BID Qty: 60 0RF cyclobenzaprine 10 mg tablet 10 mg PO QHS ferrous sulfate [FeroSul] 325 mg (65 mg iron) tablet 325 mg PO QODAY insulin lispro [Humalog KwikPen Insulin] 100 unit/mL Insulin Pen 10 unit subcut TIDAC Qty: 0 0RF omeprazole 20 mg capsule,delayed release(DR/EC) 20 mg PO DAILY oxycodone 5 mg Tablet 2.5 mg PO Q8H PRN (Reason: Pain Score 4-10 Or Pre Pt/Ot) lactulose 10 gram/15 mL Solution 10 g PO TID Qty: 3000 0RF Rx Instructions: Goal is 2-3 bowel movements daily if you are having more than this with this amount of lactulose decrease dose to twice daily from 3 times daily linezolid 600 mg Tablet 600 mg PO BID Qty: 5 0RF insulin glargine-yfgn 100 unit/mL (3 mL) Insulin Pen 20 unit subcut QHS Qty: 15 1RF (DME) pen needle, diabetic [Pen Needle] 31 gauge x 5/16 needle See Rx Instructions .Route Qty: 1200 0RF Rx Instructions: As directed folic acid 1 mg tablet 1 mg PO DAILY calcium carbonate-vitamin D3 [Oyster Shell Calcium-Vit D3] 500 mg-5 mcg (200 unit) tablet 1 tab PO DAILY acetaminophen 500 mg Tablet 1,000 mg PO Q8 PRN (Reason: fever or pain) atorvastatin 40 mg tablet 40 mg PO DAILY furosemide 20 mg tablet 40 mg PO DAILY magnesium oxide 400 mg (241.3 mg magnesium) tablet 400 mg PO DAILY sodium bicarbonate 650 mg tablet 650 mg PO BID metformin 500 mg tablet extended release 24 hr 500 mg PO QPM thiamine HCl (vitamin B1) 100 mg tablet 100 mg PO DAILY zinc sulfate 50 mg zinc (220 mg) tablet 50 mg PO DAILY midodrine 10 mg tablet 10 mg PO TID 30 Days Qty: 90 0RF Rx Instructions: do not give last dose of day after 6PM or within 4 hrs of bedtime ascorbic acid (vitamin C) 500 mg tablet 500 mg PO BID Qty: 60 2RF spironolactone 25 mg Tablet 25 mg PO DAILY 30 Days Qty: 30 2RF Rx Instructions: total 125 mg daily Hold for serum potassium more than 5.0 spironolactone 100 mg tablet 100 mg PO DAILY 30 Days Qty: 30 2RF Rx Instructions: Hold for serum potassium more than 5.0. Total 125 mg daily. oxycodone 5 mg tablet 5 mg PO Q6H PRN (Reason: pain) 3 Days Qty: 12 0RF Primary Care Provider: Jerald Sherwood Referrals: Jerald Sherwood MD [Primary Care Provider] - Friend,DO Niranjan [Med Staff - Active Staff] - Activity Restrictions/Additional Instructions: Thank you for trusting us with your care today! Please take Tylenol (2 pills, 650 mg), ibuprofen (2 pills, 400 mg) every 6 hours as needed for pain and fever control. Please return to the emergency department if your symptoms change or worsen. Please follow with your primary care physician for further outpatient evaluation and management. Print Language: Belgian Disposition Disposition: Home, Self Care Discharge Date/Time: 02/13/25 21:25
--- NOTE | 2025-02-13 17:13 | CT_ITS ---
PROCEDURE: ABDOMEN/PELVIS W IV CONT ONLY 02/13/2025 REASON FOR EXAM: ABDOMINAL PAIN TECHNIQUE: ABDOMEN/PELVIS W IV CONT ONLY Coronal and Sagittal reconstruction series were provided. CONTRAST: Isovue 370 VOLUME: 94 mL One or more dose reduction techniques were used (e.g., Automated exposure control, adjustment of the mA and/or kV according to patient size, use of iterative reconstruction technique. RADIATION DOSE SUMMARY: CTDlvol: 23.0 mGy DLP: 1672 mGycm COMPARISON: CT abdomen and pelvis on 02/07/2025 FINDINGS: Lower chest: Lung bases are clear. Cardiomegaly with multivessel coronary calcifications. Right-sided gynecomastia. Liver: Nodular contour. No discrete lesion. Gallbladder: Cholelithiasis without significant wall thickening or pericholecystic fluid. Spleen: Unchanged splenomegaly Pancreas: Normal size without evidence of mass surrounding inflammation or ductal dilation. Adrenals: Unremarkable Kidneys: Left ureteral stent with pigtails formed in the renal pelvis and urinary bladder, unchanged. There are staghorn calculi in the left kidney, also unchanged. Bladder: Subtle calcifications near the pigtail in the urinary bladder remain unchanged. Reproductive Organs: Prostatic calcifications Bowel: No obstruction or inflammation. Mild wall thickening of the right colon is again unchanged. The appendix measures 7 mm in diameter, unchanged. Lymph nodes: No suspicious lymph node enlargement. Vasculature: Gastric and splenic varices. Cavernous transformation of the portal vein. Calcified atherosclerosis of the aorta and its branches. Peritoneum / Retroperitoneum: There is a moderate volume of ascites throughout the abdomen and pelvis, and which again tracks into the inguinal canals. Overall volume is minimally decreased compared to CT on 02/07/2025. Bones: Compression deformities from T9 through T12 are unchanged. Degenerative changes of the spine. Soft tissues: There is anasarca throughout the abdominal wall and left thigh, similar to prior. Fat and fluid containing umbilical and inguinal hernias. CT/Abdomen/Pelvis W IV Cont ONLY IMPRESSION: 1. Stable appearance of the abdomen and pelvis compared to CT performed 2024. There is a moderate volume of ascites which is minimally changed. 2. Numerous unchanged findings as detailed above, including cirrhosis with sti gmata of portal hypertension, left ureteral stent with a left staghorn calculus, and cholelithiasis. Reading Location: [facility]
--- OUTSIDE RECORDS SUMMARY | 2025-02-13 17:29 | XMS RPT_ITS | CCD ---
Author Organization [facility] Care Team Providers Care Component Assembler Name Role Phone Sergey HERNANDEZ, Maurice Soria Primary Care Provider Care Physician, No Primary Primary Care Provider Unavailable Anni NOYOLA, Dr. Delgado Attending Provider Dr. Danny Hutton DO Emergency Provider Dr. Luis Carlos Anderson DO Emergency Provider Mone HERNANDEZ, Dr. Maria Guadalupe Carlson Admit Provider [phone] Mone HERNANDEZ, Dr. Maria Guadalupe Carlson Referring Provider Mone HERNANDEZ, Dr. Maria Guadalupe Carlson Other Provider [phone] Rick Carlin DO Attending Provider Erin [...] Provider Seble HERNANDEZ, Dr. Hernández Other Provider [phone] Desmond HERNANDEZ, Dr. Snow Other Provider [facility] Venegas MD, Dr. Whyte Other Provider [...] Provider BILLDIANE Parada Other Provider Bailee DIRECTOR OF ARCHITECTURE-C, Jasmine Attending Provider Shaun HERNANDEZ, Dr. Campo Emergency Provider Caro DO, Dr. Alejandre Attending Provider Unav ailable Care Physician, No Primary Primary Care Provider Unavailable Just[facility]hiprock[facility] center[facility]ubia[facility] NOYOLA, Dr. Delagdo Attending Provider GeorgiLucero NOYOLA, Dr. Delgado Emergency Provider Justin NOYOLA, Dr. Aldridge Emergency Provider Mone HERNANDEZ, Dr. Maria Guadalupe Carlson Admit Provider Mone HERNANDEZ, Dr. Maria Guadalupe Carlson Referring Provider Mone HERNANDEZ, Dr. Maria Guadalupe Carlosn Other Provider Dr. Rick Carlin DO Attending [...] Ashely HERNANDEZ, Dr. Foote Other Provider [phone] Cassandra HERNANDEZ, Dr. Garvin Other Provider [phone] Yamil HERNANDEZ, Dr. Solis Other Provider Rojas [...] Provider Mallorie HERNANDEZ, Dr. Kelly Other Provider [phone] Nuzhat NOYOLA, Dr. Cooper Other Provider Rosendo HERNANDEZ, Dr. Wesley Other Provider [phone] Dylan HERNANDEZ, Dr. Colon Other Provider Raegan [...] Provider Nomi HERNANDEZ, Dr. Douglas Other Provider [phone] Dr. Anurag Irene MD Attending Provider [phone] Dr. Jae Ash DO Attending Provider Dr. Boone Izquierdo DO Other Provider BILLTREY ParadaA Attending Provider BILLKarmaDIANE Referring Provider BILLKarma, DIANE Other Provider Bailee DIRECTOR OF ARCHITECTURE-CJasmine Attending Provider Shaun HERNANDEZ, Dr. Campo Emergency [...] Scott Weston DO Other Provider Elie DIRECTOR OF ARCHITECTURE-C, Yue Other Provider Dr. Hill Caro DO Referring Provider Unav ailable Shila HERNANDEZ, Dr. Buster Barr Attending Provider Shila HERNANDEZ, Dr. Buster Barr Referring Provider Dr. Hill Acuña MD Attending Provider Unavaila Dr. Kathie Martinez MD Other Provider Unavailable Primary Care Provider Unavailyanick Carlson MD, Dr. Kevin Emergency Provider Dr. Jae Ash DO Admit Provider Gio HERNANDEZ, Dr. Vázquez Admit Provider Tannhof DIRECTOR OF ARCHITECTURE-C, Josy Primary Care Provider Curt DIRECTOR OF ARCHITECTURE-C, Josy Attending Provider KATHIE LEMOS Referring Unavailable [...] Plaza Other Provider Víctor HERNANDEZ, Dr. Hill Alacraz Other Provider Ashli HERNANDEZ, Dr. Aguilar Other Provider Missael HERNANDEZ, Dr. Cotton Other Provider [phone] Ashely HERNANDEZ, Dr. Foote Other Provider Cassandra HERNANDEZ, Dr. Garvin Other Provider Dr. Will Lobo MD Other Provider Dr. Mina Xie MD Other Provider [phone] Dr. Betty Pruett MD Other Provider Dr. Gwendolyn Logan MD Other Provider Unavailabl karma Venegas MD, Dr. Whyte Other Provider Laurent HERNANDEZ, Dr. Raya Other Provider Dr. Nadeem Au MD Other Provider Dr. Mason Samano DO Other Provider Dr. Anel Casey MD Other Provider [phone] Robin Nobles MD Other Provider [phone] Dr. Kenneth Noland DO Other Provider Rosendo HERNANDEZ, Dr. Wesley Other Provider Dylan HERNANDEZ, Dr. Colon Other Provider Jeremi NOYOLA, Dr. Enriquez Emergency Provider Care Physician, No Primary Primary Care Provider Unavailable Erin HERNANDEZ, Dr. Rocha Other Provider Jen DO, Dr. Ureña Attending Provider Wei DO, Dr. Shook Attending Provider Lala DO, Dr. Pereyra Emergency Provider Shila HERNANDEZ, Dr. Buster Barr Admit Provider Teto HERNANDEZ, Dr. Osborn Attending Provider Zelalem HERNANDEZ, Dr. Coker Other Provider Trinidad HERNANDEZ, Dr. Gonzales Other Provider Oli HERNANDEZ, Dr. Pizarro Other Provider Dr. Bola Meraz DO Attending Provider [phone] Bola Meraz DO Other Provider Víctor HERNANDEZ, Dr. Hill Alcaraz Other Provider Ashli HERNANDEZ, Dr. Aguilar Other Provider [phone] Missael HERNANDEZ, Dr. Cotton Other Provider Ashely HERNANDEZ, Dr. Foote Other Provider Cassandra HERNANDEZ, Dr. Garvin Other Provider [phone] Dr. Will Lobo MD Other Provider [phone] Dr. Mina Xie MD Other Provider Seble HERNANDEZ, Dr. Hernández Other Provider Desmond HERNANDEZ, Dr. Snow Other Provider [facility] Mosher MD, Dr. Douglas Other Provider Theo HERNANDEZ, Dr. Whyte Other Provider Laurent HERNANDEZ, Dr. Raya Other Provider Angely HERNANDEZ, Dr. Silver Other Provider Jazmyne NOYOLA, Dr. Cuevas Other Provider Carmela HERNANDEZ, Dr. Tam Other Provider [phone] Gerardo Nobles MD, Dr. Kelly Other Provider [phone] Nuzhat NOYOLA, Dr. Cooper Other Provider Rosendo HERNANDEZ, Dr. Wesley Other Provider Dylan HERNANDEZ, Dr. Colon Other Provider [phone] Dr. Jae Ash DO Attending Provider Teto HERNANDEZ, Dr. Osborn Attending Provider Jeremi NOYOLA, Dr. Enriquez Attending Provider Vanessa NOYOLA, Dr. Crain Emergency Provider Dr. Yartiza Leo DO Admit Provider Dr. Yaritza Leo DO Attending Provider Care Physician, No Primary Primary Care Provider Unavailable Caro DO, Dr. Alejandre Admit Provider Unavail able Dr. Hill Caro DO Other Provider Unavail able Abiodun HERNANDEZ, Dr. Foster Rivas Other Provider Dr. Jae Ash DO Attending Provider Dr. Jae Ash DO Other Provider Teto HERNANDEZ, Dr. Osborn Other Provider Dr. Rachel Joiner DO Emergency Provider Karena HERNANDEZ, Dr. Andre Other Provider Dr. Yaritza Leo DO Other Provider Frieda HERNANDEZ, Dr. Jefferson Marte Other Provider Lily HERNANDEZ, Dr. Maynard Other Provider Guy HERNANDEZ, Dr. Cielo Lan Other Provider Guy HERNANDEZ, Dr. Cielo Lan Referring Provider Guy HERNANDEZ, Dr. Cielo Lan Attending Provider Frieda HERNANDEZ, Dr. Jefferson Marte Attending Provider Care Physician, No Primary Primary Care Provider Unavailable Teto HERNANDEZ, Dr. Osborn Referring Provider GeorgiLucero NOYOLA, Dr. Delgado Emergency Provider Presley HERNANDEZ, Dr. Marques Primary Care Provider Timbo NOYOLA, Dr. Shook Admit Provider Timbo NOYOLA, Dr. Shook Attending Provider Timbo NOYOLA, Dr. Shook Other Provider Ahmet DO, Dr. Vigil Attending Provider Timbo NOYOLA, Dr. Shook Attending Provider Hill Acuña Attending Unavailable Care Physician, No Primary Primary Care Unava ilable Hill Caro Admitting Unavailable Hill Caro Consulting Unavailable Foster Rascon Consulting Unavailable Buster Fuchs Consulting Unavailable Hill Acuña Consulting Unavailable Yaritza Leo Admitting Unavailable Yaritza Leo Consulting Unavailable Josy Elias Primary Care Unavailable Anurag Irene Attending Unavailable Jefferson Malave Consulting Unavailable Aleyda Bautista Consulting Unavailable Cielo Tovar Consulting Unavailable Josy Elias Attending Unavailable Josy Elias Primary Care Unavailable Maria Guadalupe Shore Admitting Unavailable Maria Guadalupe Shore Referring Unavailable Bola Meraz Attending Unavailable Care Physician, No Primary Primary Care Unava ilable John Paul Masterson Consulting Unavailable Christian Abdi Consulting Unavailable Juarez Baird Consulting Unavailable Bola Meraz Consulting Unavailable Hill Renee Consulting Unavailable Jeff Cornelius Consulting Unavailable Yury Canas Consulting Unavailable Dary Lund Consulting UnavailBharathi East Consulting Unavailable Will Lobo Consulting Unavailable Mina Xie Consulting Unavailable Betty Pruett Consulting Unavailable Gwendolyn Logan Consulting Unavailable Theo, Pato Consulting Unavailable Irukulla, Elver Consulting Unavailable Angely, Nadeem Consulting Unavailable Dhesi, Mason Consulting Unavailable Carmela, Anamariajoy Consulting Unavailable Mallorie, Charleeyah Consulting Unavailable Fernstrom, Kenneth Consulting Unavailable Rosendo, Lupillo Consulting Unavailable Young Richardson Consulting Unavailable Maria Guadalupe Shore Consulting Unavailable Josefina Khan Consulting Unavailable Rick Carlin Consulting Unavailable John Paul Masterson Consulting Unavailable Hill Caro Attending Unavailable Christian Abdi Consulting Unavailable Juarez Baird Consulting Unavailable Bola Meraz Consulting Unavailable Hill Renee Consulting Unavailable Jeff Cornelius Consulting Unavailable Yury Canas Consulting Unavailable Dary Lund Consulting UnavailBharathi East Consulting Unavailable Wlil Lobo Consulting Unavailable Mina iXe Consulting Unavailable Betty Pruett Consulting Unavailable Gwendolyn Logan Consulting Unavailable Stella Mosher Consulting Unavailable TheoIvonne ricetam Consulting Unavailable Irukulla, Elver Consulting Unavailable Angely, Nadeem Consulting Unavailable Dhesi, Mason Consulting Unavailable Anamaria Caseyjoy Consulting Unavailable Mallorie, Soleyah Consulting Unavailable Kameronnstrfrancisca, Kenneth Consulting Unavailable Rosendo, Lupillo Consulting Unavailable Young Richardson Consulting Unavailable Kathie Lemos Attending Unavailable Kathie Lemos Consulting Unavailable Hill Acuña Attending Unavailable Kathie Lemos Consulting Unavailable Kathie Lemos Admitting Unavailable Care Physician, No Primary Primary Care Unava ilable Thai Thurston Consulting Unavailable Jae Ash Consulting Unavailable Jae Ash Admitting Unavailable Care Physician, No Primary Primary Care Unava ilable Anurag Irene Attending Unavailable Teto Anurag Consulting Unavailable Jae Ash Consulting Unavailable Jae Ash Admitting Unavailable Care Physician, No Primary Primary Care Unava ilable Anurag Irene Attending Unavailable Teto, Anurag Consulting Unavailable Kathie Lemos Consulting Unavailable Hill Acuña Attending Unavailable Kathie Lemos Admitting Unavailable Care Physician, No Primary Primary Care Unava ilable Thai Thurston Consulting Unavailable Hill Acuña Consulting Unavailable Buster Fuchs Attending Unavailable Buster Fuchs Consulting Unavailable Buster Fuchs Admitting Unavailable Josy Elias Primary Care Unavailable Hill Acuña Attending Unavailable Hill Acuña Consulting Unavailable Jae Ash Attending Unavailable Kathie Lemos Attending Unavailable Care Physician, No Primary Primary Care Unava ilable Hill Caro Admitting Unavailable Kathie Lemos Attending Unavailable Hill Caro Consulting Unavailable Foster Rascon Consulting Unavailable Buster Fuchs Consulting Unavailable Hill Acuña Consulting Unavailable Hill Herrmann Consulting Unavailable Blair Cage Consulting Unavailable Thiago Wray Consulting Unavailable Gabbi Hughes Consulting Unavailable Thai Godfrey Consulting Unavailable Juan Daniel Garza Consulting Unavailable Zachariah Glover Consulting Unavailable Scott Weston Consulting Unavailable Elie DIRECTOR OF ARCHITECTURE, Yue Consulting Unavailable Boone Izquierdo Attending Unavailable Care Physician, No Primary Primary Care Unava ilable Hill Caro Admitting Unavailable Hill Caro Consulting Unavailable Anurag Irene Consulting Unavailable Jae Ash Consulting Unavailable Thai Thurston Consulting Unavailable Erin, Natashakas Consulting Unavailable Foster Rascon Consulting Unavailable Boone Izquierdo Admitting Unavailable Yaritza Leo Attending Unavailable Boone Izquierdo Consulting Unavailable Jerald Sherwood Primary Care Unavailable Maria Guadalupe Shore Admitting Unavailable Maria Guadalupe Shore Consulting Unavailable Maria Guadalupe Shore Referring Unavailable Rick Carlin Attending Unavailable Care Physician, No Primary Primary Care Unava ilable Erin, Jayaprakas Consulting Unavailable Yaritza Leo Admitting Unavailable Cielo Tovar Attending Unavailable Yaritza Leo Consulting Unavailable Josy Elias Primary Care Unavailable Jefferson Malave Consulting Unavailable Aleyda Bautista Consulting Unavailable Cielo Tovar Edyta Consulting Unavailable Rick Carlin Attending Unavailable Care Physician, No Primary Primary Care Unava ilable AUGUSTO COYLE Attending Unavailable AUGUSTO COYLE Referring Unavailable iMna Blood Attending Unavailable Jerald Sherwood Primary Care Unavailable Josy Elias Primary Care Unavailable Boone Carvajal Attending Unavailable Mina Blood Attending Unavailable Josy Elias Primary Care Unavailable Mina Blood Attending Unavailable Mina Blood Referring Unavailable Jerald Sherwood Primary Care Unavailable Care Physician, No Primary Primary Care Unava ilable Danny Hutton Attending [facility] Care Physician, No Primary Primary Care Unava ilable TALMARYALAUGUSTO Referring Unavailable AUGUSTO COYLE Attending Unavailable Bola Meraz Attending Unavailable Hill Caro Referring Unavailable Buster Fuchs Attending Unavailable Jen, Niranjan Attending Unavailable Maria Guadalupe Shore Attending Unavailable Josy Elias Attending Unavailable Josy Elias Primary Care Unavailable Josy Elias Referring Unavailable Hill Acuña Attending Unavailable Butser Fuchs F Consulting Unavailable Beau Fuchsolas F Admitting Unavailable Curt, Josy Primary Care Unavailable Jae Ash Consulting Unavailable Jae Ash Admitting Unavailable Care Physician, No Primary Primary Care Unava ilable Anurag Irene Attending Unavailable Hill Herrmann Consulting Unavailable Blair Cage Consulting Unavailable Thiago Wray Consulting Unavailable Gabbi Hughes Consulting Unavailable Thai Godfrey Consulting Unavailable Juan Daniel Garza Consulting Unavailable Zachariah Glover Consulting Unavailable Scott Weston Consulting Unavailable Elie DIRECTOR OF ARCHITECTURE, Yue Consulting Unavailable Care Physician, No Primary Primary Care Unava ilable JHON COYLECHI Referring Unavailable AUGUSTO COYLE Consulting Unavailable Bailee DIRECTOR OF ARCHITECTURE, Jasmine Attending Unavailable Bola Meraz Attending Unavailable Care Physician, No Primary Primary Care Unava ilable Foster Rascon Consulting Unavailable Hill Caro Admitting Unavailable Anurag Irene Referring Unavailable Hill Caro Consulting Unavailable John Paul Masterson Consulting Unavailable Christian Abdi Consulting Unavailable Juarez Baird Consulting Unavailable Bola Meraz Consulting Unavailable Hill Renee Consulting Unavailable Jeff Cornelius Consulting Unavailable Yury Canas Consulting Unavailable Dary Lund Consulting UnavailBharathi East Consulting Unavailable Will Lobo Consulting Unavailable Mina Xie Consulting Unavailable Betty Pruett Consulting Unavailable Gwendolyn Logan Consulting Unavailable Stella Mosher Consulting Unavailable Theo Pato Consulting Unavailable Elver Mancilla Consulting Unavailable Angely, Nadeem Consulting Unavailable Mason Samano Consulting Unavailable Anel Casey Consulting Unavailable Robin Nobles Consulting Unavailable Kenneth Noland Consulting Unavailable Lupillo Robbins Consulting Unavailable Young Richardson Consulting Unavailable Thai Thurston Consulting Unavailable Josefina Khan Consulting Unavailable Teto Anurag Consulting Unavailable Anurag Irene Attending Unavailable Boone Izquierdo Attending Unavailable Jae Ash Consulting Unavailable Boone Izquierdo Consulting Unavailable Buster Fuchs Referring Unavailable Jen Niranjan Attending Unavailable Anurag Irene Attending Unavailable Anurag Irene Consulting Unavailable Hill Caro Attending Unavailable Yaritza Leo Attending Unavailable Cielo Tovar Referring Unavailable Bola Meraz Attending Unavailable John Paul Masterson Consulting Unavailable Christian Abdi Consulting Unavailable Juarez Baird Consulting Unavailable Bola Meraz Consulting Unavailable Hill Renee Consulting Unavailable Jeff Cornelius Consulting Unavailable Yury Canas Consulting Unavailable Dary Lund Consulting UnavailBharathi East Consulting Unavailable Will Lobo Consulting Unavailable Mina Xie Consulting Unavailable Betty Pruett Consulting Unavailable Gwendolyn Logan Consulting Unavailable Stella Mosher Consulting Unavailable Pato Venegas Consulting Unavailable Elver Mancilla Consulting Unavailable Nadeem Au Consulting Unavailable Mason Samano Consulting Unavailable Anel Casey Consulting Unavailable Robin Noblse Consulting Unavailable Kenneth Noland Consulting Unavailable Lupillo Robbins Consulting Unavailable Young Richardson Consulting Unavailable Jefferson Malave Attending Unavailable Anurag Irene Referring Unavailable Boone Izquierdo Attending Unavailable Jerald Sherwood Primary Care Unavailable Yaritza Leo Attending Unavailable Boone Izquierdo Admitting Unavailable Boone Izquierdo Consulting Unavailable Jerald Sherwood Primary Care Unavailable Yaritza Leo Consulting Unavailable Jae Ash Attending Unavailable Medications Current Medications Medication Drug Class(es) Dates Sig (Normalized) Sig (Original) acetaminophen 500 mg oral tablet (20 sources) Start: 09-14-2024 End: 10-28-2024 Acetaminophen 50 0 mg cap Take by mouth. Active ascorbic acid 500 mg oral tablet (11 sources) Vitamin C Start: 11-25-2024 atorvastatin 40 mg oral tablet (12 sources) HMG-CoA Reductase Inhibitor Start: 11-21-2024 calcium [...] 11/03/2024 Active take 2 tablets by mo [facility] once daily furosemide (LASIX) 20 mg tablet Take 40 mg by mouth once daily. Suspended linezolid 600 mg oral tablet (2 sources) Oxazolidinone Antibacterial Start: 01-31-2025 magnesium oxide 400 mg oral tablet (12 sources) Start: 11-21-2024 24 hr metFORMIN hydrochlorid e 500 mg extended release oral tablet (15 sources) Biguanide Start: 11-21-2024 Start: 11-18-2024 take [...] times daily (morning, midday, late afternoon). Active omeprazole 20 mg delayed rel ease oral capsule (3 sources) Proton Pump Inhibitor Start: 01-28-2025 oxyCODONE hydrochloride 5 mg oral tablet (10 sources) Opioid Agonist Start: 02-08-2025 Start: 01-21-2025 End: 01-28-2025 Start: 10-04-2024 End: 10-04-2024 take 5 mg by mouth once as needed for pain 5 mg, oral, Once, On Fri10/04/24 at 1905, For 1 dose, If ordered PRN for pain, nurse is permitted to administer this medication for higher pain scores based on patient preference? Yes take 1 capsule by mo uth every six hours as needed oxyCODONE (Oxy-IR) 5 mg immediate release capsule Take 1 capsule (5 mg) by mouth every 6 hours if needed for severe pain (7 - 10). Active phenazopyridine hydrochloride 200 mg oral tablet (2 [...] 09-02-2024 sodium bicarbonate 650 mg oral tablet (14 sources) Start: 11-21-2024 Start: 11-18-2024 End: 12-18-2024 take 1 tablet by mouth twice daily sodium bicarbonate 650 mg tablet 1 tablet by ORAL/FEEDING TUBE route two times a day. 60 tablet 11/18/2024 12/18/2024 Active spironolactone 25 mg oral ta blet (20 sources) Aldosterone Antagonist Start: 01-21-2025 Start: 01-21-2025 Start: 11-21-2024 End: 01-21-2025 Start: 11-18-2024 [facility] spironolactone (ALDACTONE) 50 mg tablet [...] Active zinc sulfate 220 mg oral tablet (15 sources) Start: 11-21-2024 Start: 11-18-2024 take 1 capsule by mo [facility] once daily zinc sulfate 220 mg (50 mg zinc) capsule Take 1 capsule by mouth once daily. 30 capsule 3 11/18/2024 Active (20 sources) Start: 01-31-2025 Start: 01-31-2025 Start: 01-21-2025 End: 01-31-2025 Start: 01-21-2025 Start: 01-05-2025 End: 01-31-2025 Start: 01-05-2025 End: 01-21-2025 Start: 01-05-2025 Start: 01-02-2025 Start: 12-02-2024 End: 01-28-2025 Start: 12-02-2024 End: 01-21-2025 Start: 12-02-2024 Start: 11-21-2024 End: 12-30-2024 Start: 11-21-2024 Start: 09-02-2024 End: 09-14-2024 Completed/Discontinued Medications Medication Drug Class(es) Dates Sig (Normalized) Sig (Original) acetaminophen 325 mg / HYDROcodone bitartrate 5 mg oral tablet (15 sources) Opioid Agonist Start: 09-02-2024 End: 09-14-2024 Start: 09-02-2024 End: 09-14-2024 Hydrocodone-Acetaminophen 5- 325 mg Tablet Discontinued 1 {tbl} PO EVERY 4 HOURS NEEDED as needed for Pain Score 1-10 30 7 September 02, 2024 September 14, 2024 6:37pm apixaban 5 mg oral tablet (12 sources) Factor Xa Inhibitor Start: 11-21-2024 End: 11-25-2024 cephalexin 500 mg oral capsu le (8 sources) Cephalosporin Antibacterial Start: 12-30-2024 End: 01-05-2025 doxycycline monohydrate 100 mg oral capsule (15 sources) Tetracycline-class Drug Start: 09-14-2024 End: 10-28-2024 0.8 ml enoxaparin sodium 150 mg/ml prefilled syringe (15 sources) Low Molecular Weight Heparin Start: 11-21-2024 End: 12-30-2024 Start: 11-18-2024 inject 100 mg by sub cutaneous injection every twelve hours enoxaparin (LOVENOX) 120 mg/0.8 mL injection Inject 99 mg subcutaneously every 12 hours. Inject 0.7 mL subcutaneously every 12 hours 48 mL 2 11/18/2024 Active fluconazole 200 mg oral tabl et (14 sources) Azole Antifungal Start: 11-18-2024 End: 11-27-2024 ibuprofen 800 mg oral tablet (20 sources) Nonsteroidal Anti-inflammatory Drug Start: 10-28-2024 End: 11-25-2024 take 1 tablet by bipin th every eight hours as needed ibuprofen (MOTRIN) 800 mg tablet Take 80 0 mg by mouth every 8 hours as needed for fever (specify temp.) or pain. Suspended imiquimod 50 mg/ml topical cream (11 sources) Start: 12-02-2024 End: 12-30-2024 Insulin Glargine-Yfgn 100 unit/mL (3 mL) Insulin Pen (2 sources) Start: 09-02-2024 End: 09-14-2024 Insulin Glargine-Yfgn 100 unit/mL (3 mL) Insulin Pen Discontinued 10 U SC TWICE A DAY 5 September 02, 2024 1:00am September 14, 2024 6:38pm 3 ml insulin lispro 100 unt/ml pen injector (20 sources) Insulin Analog Start: 09-14-2024 End: 01-31-2025 insulin lispro ( HUMALOG KWIKPEN) 100 unit/mL Inject subcutaneously three times a day before meals. Active insulin lispro 1 00 unit/mL injection Inject under the skin 4 times a day before meals. Sliding Scale Active iohexol (OMNIPaque) 350 mg iodine/mL solution 69 mL (1 source) Start: 10-04-2024 End: 10-04-2024 69 mL, intravenous, Once in imaging, Starting on Fri10/04/24 at 1417, For 1 dose lactulose 667 mg/ml oral solution (20 sources) Osmotic Laxative Start: 11-21-2024 End: 01-31-2025 Start: 11-18-2024 take 60 mL by mouth [...] Active levoFLOXacin 500 mg oral tab let (20 sources) Quinolone Antimicrobial Start: 11-25-2024 End: 01-02-2025 lidocaine 0.05 mg/mg medicat ed patch (20 sources) Antiarrhythmic, Amide Local Anesthetic Start: 08-21-2024 End: 11-28-2024 Start: 08-21-2024 End: 09-02-2024 Lidocaine (Lidoderm) 5 % adh esive patch,medicated Discontinued 3 NMA TOPICAL DAILY August 21, 2024 1:00am September 02, 2024 [...] 1 dose nadolol 20 mg oral tablet (6 sources) beta-Adrenergic Tracey Start: 01-02-2025 End: 01-21-2025 ondansetron 4 mg disintegrating oral tablet (3 sources) Serotonin-3 Receptor Antagonist Start: 10-04-2024 End: 10-04-2024 take 4 mg by mouth once 4 mg, oral, Once, On Fri10/04/24 at 2115, For 1 dose Start: 10-04-2024 End: 10-04-2024 4 mg, intravenous, Once, On Fri10/04/24 at 1525, For 1 dose, When administering via IV Push, administer over 3-5 minutes. pantoprazole 20 mg delayed r elease oral tablet (20 sources) Proton Pump Inhibitor Start: 11-21-2024 End: 01-28-2025 Start: 09-02-2024 End: 11-21-2024 take 1 tablet by bipin once daily pantoprazole DR (PROTONIX) 40 mg tablet Take 40 mg by mouth once daily. Suspended vancomycin 125 mg oral capsu (11 sources) Glycopeptide Antibacterial Start: 12-02-2024 End: 01-05-2025 Problems Active Problems Problem Classification Problem Date Documented Da te Episodic/Chronic Abdominal hernia (13 sources) Umbilical hernia; Translations: [Umbilical hernia without obstruction or gangrene] Onset: 01-31-2025 01-11-2025 Episodic Abdominal pain (20 sources) Generalized abdominal pain; Translations: [Generalized abdominal pain] Onset: 10-04-2024 10-04-2024 Episodic Acute and unspecified renal failure (20 sources) Acute renal failure syndrome; Translations: [Acute kidney failure, unspecified] Onset: 01-11-2025 09-10-2024 Episodic Acute posthemorrhagic anemia (20 sources) Acute posthemorrhagic anemia; Translations: [Acute posthemorrhagic anemia] 11-21-2024 Episodic Alcohol-related disorders (1 source) Alcoholic cirrhosis of liver with ascites; Translations: [Alcoholic cirrhosis of liver with ascites] Onset: 02-11-2025 Chronic Chronic kidney disease (11 sources) Chronic kidney [...] Onset: 11-11-2024 Episodic Diabetes mellitus without complication (9 sources) Insulin treated type 2 diabetes mellitus; Translations: [Type 2 diabetes mellitus without complications] 12-30-2024 Chronic Diabetes mellitus without complication (8 sources) Hyperglycemia; Translations: [Hyperglycemia, unspecified] 12-30-2024 Episodic [...] Blood in urine; Translations: [Hematuria, unspecified] Onset: 01-31-2025 11-21-2024 Episodic Hepatitis (20 sources) Cirrhosis - non-alcoholic; 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 (BOYER)] Onset: 09-17-2024 09-23-2024 Chronic Intestinal infection (20 sources) Clostridium difficile colitis; Translations: [Enterocolitis due to Clostridium difficile, not specified as recurrent] Onset: 11-11-2024 Resolved: 11-18-2024 10-30-2024 Episodic Malaise and fatigue (20 sources) Asthenia; Translations: [Weakness] Onset: 11-11-2024 09-05-2024 Episodic Nonspecific chest pain (9 sources) Chest pain; Translations: [Chest pain, unspecified] Onset: 01-06-2025 12-30-2024 Episodic Other and unspecified benign neoplasm (5 sources) Multiple benign melanocytic nevi ; Translations: [Melanocytic nevi, unspecified] Onset: 11-14-2024 11-14-2024 Episodic Other circulatory disease (20 sources) Chronic hypotension; Translations: [Other hypotension] Onset: 11-11-2024 09-23-2024 Episodic Other circulatory disease (20 sources) Low blood pressure; Translations: [Hypotension, unspecified] 09-10-2024 Episodic Other diseases of kidney and ureters (20 sources) Renal impairment; Translations: [Disorder of kidney and ureter, unspecified] 09-23-2024 Episodic Other fractures (10 sources) Compression fracture of thoracic spine; Translations: [...] Diarrhea; Translations: [Diarrhea, unspecified] 10-29-2024 Episodic Other liver diseases (20 sources) Cirrhosis [...] [Portal hypertension] Onset: 11-11-2024 11-11-2024 Chronic Other liver diseases (20 sources) Hepatic encephalopathy; Translations: [Hepatic encephalopathy] Onset: 01-31-2025 09-10-2024 Episodic Other nervous system disorders (20 sources) Walking [...] organism] Onset: 11-11-2024 Resolved: 11-18-2024 10-29-2024 Episodic Skin and subcutaneous tissue infections (20 sources) Cellulitis of abdominal wall ; Translations: [Cellulitis of abdominal wall] Onset: 12-04-2024 12-03-2024 Episodic Spondylosis; intervertebral disc disorders; other back problems (20 sources) Chronic back pain ; Translations: [Dorsalgia, unspecified] Onset: 09-10-2024 09-23-2024 Episodic Superficial injury; contusion (15 sources) Contusion of lower back; Translations: [Contusion of lower back and pelvis, initial encounter] 08-29-2024 Episodic Unclassified (2 sources) In the next 2 weeks as scheduled Unclassified (2 sources) Dr. Redman Unclassified (1 source) Acidosis, unspecified; Translations: [Acidosis, unspecified] Onset: 01-31-2025 Unclassified (1 source) Obesity, class 1; Translations: [Obesity, class 1] Onset: 11-11-2024 Unclassified (1 source) Low back pain, unspecified; Translations: [Low back pain, unspecified] Onset: 09-17-2024 Urinary tract infections (20 sources) Acute cystitis; Translations: [Acute cystitis with hematuria] Onset: 09-17-2024 09-23-2024 Episodic Past or Other Problems Problem Classification Problem Date Documented Da te Episodic/Chronic Calculus of urinary tract (20 sources) Staghorn calculus; Translations: [Calculus of kidney] Onset: 09-17-2024 09-05-2024 Episodic Other circulatory disease (1 source) Hypotension, unspecified; Translations: [Hypotension, unspecified] Onset: 11-11-2024 Episodic Other circulatory disease (1 source) Other hypotension; Translations: [Other hypotension] Onset: 09-17-2024 Episodic Other diseases of kidney and ureters (1 source) Disorder of kidney and ureter, unspecified; Translations: [Disorder of kidney and ureter, unspecified] Onset: 09-17-2024 Episodic Other gastrointestinal disorders (4 sources) Other ascites; Translations: [Other ascites] Onset: 10-04-2024 Episodic Other gastrointestinal disorders (1 source) Diarrhea, unspecified; Translations: [Diarrhea, unspecified] Onset: 11-11-2024 Episodic Other injuries and conditions due to external causes (1 source) Encounter for examination and observation following other accident; Translations: [Encounter for examination and observation following other accident] Onset: 09-08-2024 Episodic Shock (1 source) Severe sepsis with septic shock; Translations: [Severe sepsis with septic shock] Onset: 11-11-2024 Episodic Results Test Name Value Interpretation Reference Range Facility Paracentesis with USon 02-11 Paracentesis with US Normal [facility] Emergency Department Summary on 02-08-2025 Emergency Department Summary Normal [facility] Abdomen/Pelvis W IV Cont ONL Yon 02-07-2025 Abdomen/Pelvis W IV Cont ONLY Normal [facility] Absolute lymphocyte countOrd ered By: ED PROVIDER on 02-07-2025 Lymphocytes Auto (Unsp spec) [#/Vol] 1.39 10*3/uL 0.83-4.51 [facility] Anion gap in Serum or Plasma Ordered By: ED PROVIDER on 02-07-2025 Anion gap [Moles/Vol] 9 mmol/L 5-15 [facility] Automated lymphocyte count a s percentage of total leukocytesOrdered By: ED PROVIDER on 02-07-2025 Lymphocytes/100 WBC Auto (Unsp spec) 12.8 % Low 19-41 [facility] BUN/creatinine ratioOrdered By: ED PROVIDER on 02-07-2025 Urea nitrogen/Creatinine [Mass ratio] 13.9 mg/mg 10-20 [facility] Basophil percentageOrdered B y: ED PROVIDER on 02-07-2025 Basophils/100 WBC (Bld) 0.5 % 0-1 [facility] Bilirubin, totalOrdered By: ED PROVIDER on 02-07-2025 Bilirubin [Mass/Vol] 1.92 mg/dL High 0.00-1.30 [facility] CBC W/Diff, Automatedon Absolute Lymph 1.39 X10 3/uL Normal 0.83-4.51 [facility] Comment on above: Performed By: #### L 100.0100, L501.2450, L500.4050 ####[facility] [address] [place], [address] Absolute Neut 7.9 X10 3/uL High 2.0-7.7 [facility] Comment on above: Performed By: #### L 100.0100, L501.2450, L500.4050 ####[facility] [address] [place], [address] Basophils/100 WBC (Bld) 0.5 % Normal 0-1 [facility] Comment on above: Performed By: #### L 100.0100, L501.2450, L500.4050 ####[facility] [address] [place], [address] Eosinophils/100 WBC (Bld) 5.4 % High 0-5 [facility] Comment on above: Performed By: #### L 100.0100, L501.2450, L500.4050 ####[facility] [address] [place], [address] Erythrocyte distribution width (RBC) [Ratio] 17.9 % High 11.6-14.6 [facility] Comment on above: Performed By: #### L 100.0100, L501.2450, L500.4050 ####[facility] [address] [place], [address] Hematocrit (Bld) [Volume fraction] 28.8 % Low 40-54 [facility] Comment on above: Performed By: #### L 100.0100, L501.2450, L500.4050 ####[facility] [address] [place], [address] Hemoglobin (Bld) [Mass/Vol] 9.2 g/dL Low 13.0-16.5 [facility] Comment on above: Performed By: #### L 100.0100, L501.2450, L500.4050 ####[facility] [address] [place], [address] IG% 0.400 Normal 0.0-0.9 [facility] Comment on above: Result Comment: IG% - Immature Granulocytes (promyelocytes, myelocytes andmetamyelocytes) > 1% indicates that a LEFT SHIFT is Present. Performed By: #### L 100.0100, L501.2450, L500.4050 ####[facility] [address] [place], [address] Lymphocytes/100 WBC (Bld) 12.8 % Low 19-41 [facility] Comment on above: Performed By: #### L 100.0100, L501.2450, L500.4050 ####[facility] [address] [place], [address] MCH (RBC) [Entitic mass] 29.0 pg Normal 27.0-32.0 [facility] Comment on above: Performed By: #### L 100.0100, L501.2450, L500.4050 ####[facility] [address] [place], [address] MCHC (RBC) [Mass/Vol] 31.9 g/dL Low 32-36 [facility] Comment on above: Performed By: #### L 100.0100, L501.2450, L500.4050 ####[facility] [address] [place], [address] MCV (RBC) [Entitic vol] 90.9 fL Normal 80-94 [facility] Comment on above: Performed By: #### L 100.0100, L501.2450, L500.4050 ####[facility] [address] [place], [address] Monocytes/100 WBC (Bld) 8.1 % Normal 0-10 [facility] Comment on above: Performed By: #### L 100.0100, L501.2450, L500.4050 ####[facility] [address] [place], [address] Neutrophils/100 WBC (Bld) 72.8 % High 47-70 [facility] Comment on above: Performed By: #### L 100.0100, L501.2450, L500.4050 ####[facility] [address] [place], [address] Nucleated RBC (Bld) [#/Vol] 0 10*3/uL Normal 0-5 [facility] Comment on above: Performed By: #### L 100.0100, L501.2450, L500.4050 ####[facility] [address] [place], [address] Platelet mean volume (Bld) [Entitic vol] 10.1 fL Normal 6.2-12.0 [facility] Comment on above: Performed By: #### L 100.0100, L501.2450, L500.4050 ####[facility] [address] [place], [address] Platelets (Bld) [#/Vol] 131 10*3/uL Low 150-450 [facility] Comment on above: Performed By: #### L 100.0100, L501.2450, L500.4050 ####[facility] [address] [place], [address] RBC (Bld) [#/Vol] 3.17 10*6/uL Low 4.6-6.2 [facility] Comment on above: Performed By: #### L 100.0100, L501.2450, L500.4050 ####[facility] [address] [place], [address] RDW SD 58.3 fl High 35.1-43.9 [facility] Comment on above: Performed By: #### L 100.0100, L501.2450, L500.4050 ####[facility] [address] [place], [address] WBC (Bld) [#/Vol] 10.8 10*3/uL Normal 4.4-11.0 [facility] Comment on above: Performed By: #### L 100.0100, L501.2450, L500.4050 ####[facility] [address] [place], [address] Carbon dioxide, total [Moles /volume] in Central venous bloodOrdered By: ED PROVIDER on 02-07-2025 CO2 [Moles/Vol] 22.7 mmol/L 21.0-32.0 [facility] Chloride assayOrdered By: ED PROVIDER on 02-07-2025 Chloride [Moles/Vol] 106 mmol/L 98-108 [facility] Comprehensive Metabolic Prof ilon 02-07-2025 Albumin [Mass/Vol] 2.2 g/dL Low 3.5-5.0 [facility] Comment on above: Performed By: #### L 100.0100, L501.2450, L500.4050 ####[facility] [address] [place], [address] Albumin/Globulin [Mass ratio] 0.6 {ratio} Low 0.9-2.4 [facility] Comment on above: Performed By: #### L 100.0100, L501.2450, L500.4050 ####[facility] [address] [place], [address] ALK PHOS 218 U/L High 40-129 [facility] Comment on above: Performed By: #### L 100.0100, L501.2450, L500.4050 ####[facility] [address] [place], [address] ALT [Catalytic activity/Vol] 30 U/L Normal <=46 [facility] Comment on above: Performed By: #### L 100.0100, L501.2450, L500.4050 ####[facility] [address] [place], [address] AST [Catalytic activity/Vol] 55 U/L High <=37 [facility] Comment on above: Performed By: #### L 100.0100, L501.2450, L500.4050 ####[facility] [address] [place], [address] Bilirubin [Mass/Vol] 1.92 mg/dL High 0.00-1.30 [facility] Comment on above: Performed By: #### L 100.0100, L501.2450, L500.4050 ####[facility] [address] [place], [address] BUN/CRE 13.9 RATIO Normal 10-20 [facility] Comment on above: Performed By: #### L 100.0100, L501.2450, L500.4050 ####[facility] [address] [place], [address] Calcium [Mass/Vol] 8.4 mg/dL Normal 7.6-11.0 [facility] Comment on above: Performed By: #### L 100.0100, L501.2450, L500.4050 ####[facility] [address] [place], [address] Chloride [Moles/Vol] 106 mmol/L Normal 98-108 [facility] Comment on above: Performed By: #### L 100.0100, L501.2450, L500.4050 ####[facility] [address] [place], [address] CO2 [Moles/Vol] 22.7 mmol/L Normal 21.0-32.0 [facility] Comment on above: Performed By: #### L 100.0100, L501.2450, L500.4050 ####[facility] [address] [place], [address] Creatinine [Mass/Vol] 1.05 mg/dL Normal 0.70-1.20 [facility] Comment on above: Performed By: #### L 100.0100, L501.2450, L500.4050 ####[facility] [address] [place], [address] GAP 9 Normal 5-15 [facility] Comment on above: Performed By: #### L 100.0100, L501.2450, L500.4050 ####[facility] [address] [place], [address] GFR/1.73 sq M.predicted among non-blacks MDRD (S/P/Bld) [Vol rate/Area] 82 mL/min/{1.73_m2} Normal >60 [facility] Comment on above: Result Comment: mL/m in/1.73m2 CKD-EPI Creatinine Equation (2020) Performed By: #### L 100.0100, L501.2450, L500.4050 ####[facility] [address] [place], [address] Globulin (S) [Mass/Vol] 3.5 g/dL Normal 2.2-4.2 [facility] Comment on above: Performed By: #### L 100.0100, L501.2450, L500.4050 ####[facility] [address] [place], [address] Glucose [Mass/Vol] 142 mg/dL High 70-99 [facility] Comment on above: Performed By: #### L 100.0100, L501.2450, L500.4050 ####[facility] [address] [place], [address] Potassium [Moles/Vol] 3.7 mmol/L Normal 3.3-5.1 [facility] Comment on above: Performed By: #### L 100.0100, L501.2450, L500.4050 ####[facility] [address] [place], [address] Sodium [Moles/Vol] 137 mmol/L Normal 133-145 [facility] Comment on above: Performed By: #### L 100.0100, L501.2450, L500.4050 ####[facility] [address] [place], [address] T PROT 5.8 g/dL Low 5.9-8.4 [facility] Comment on above: Performed By: #### L 100.0100, L501.2450, L500.4050 ####[facility] [address] [place], [address] Urea nitrogen [Mass/Vol] 15 mg/dL Normal 4-19 [facility] Comment on above: Performed By: #### L 100.0100, L501.2450, L500.4050 ####[facility] [address] [place], [address] Eosinophil percentageOrdered By: ED PROVIDER on 02-07-2025 Eosinophils/100 WBC (Bld) 5.4 % High 0-5 [facility] Erythrocyte distribution wid th ratioOrdered By: ED PROVIDER on 02-07-2025 Erythrocyte distribution width (RBC) [Ratio] 17.9 % High 11.6-14.6 [facility] Erythrocyte distribution wid th standard deviationOrdered By: ED PROVIDER on 02-07-2025 Erythrocyte distribution width (RBC) [Ratio] 58.3 fl High 35.1-43.9 [facility] Glomerular filtration rate ( GFR) estimation/1.73 sq m using serum, plasma, or whole bOrdered By: ED PROVIDER on 02-07-2025 GFR/1.73 sq M.predicted among non-blacks MDRD (S/P/Bld) [Vol rate/Area] 82 mL/min/{1.73_m2} >60 [facility] Hematocrit Auto (Bld) [Volum e fraction]Ordered By: ED PROVIDER on 02-07-2025 Hematocrit (Bld) [Volume fraction] 28.8 % Low 40-54 [facility] Hemoglobin measurementOrdere d By: ED PROVIDER on 02-07-2025 Hemoglobin (Bld) [Mass/Vol] 9.2 g/dL Low 13.0-16.5 [facility] Immature granulocytes/100 WB C Auto (Bld)Ordered By: ED PROVIDER on 02-07-2025 Immature granulocytes/100 WBC (Bld) 0.400 % 0.0-0.9 [facility] Lipaseon 02-07-2025 Lipase [Catalytic activity/Vol] 35 U/L Normal 13-75 [facility] Comment on above: Result Comment: Siddhartha bhat note:LIPASE revised reference range effective 22.New Lipase methodology. Expected to produce lower valuesthan the previous assay method.NEW Reference Range: 13 - 75 U/L Performed By: #### L 100.0100, L501.2450, L500.4050 ####[facility] [address] [place], [address] MCV (mean corpuscular volume ) determinationOrdered By: ED PROVIDER on 02-07-2025 MCV (RBC) [Entitic vol] 90.9 fL 80-94 [facility] Mean corpuscular hemoglobin (MCH) determinationOrdered By: ED PROVIDER on 02-07-2025 MCH (RBC) [Entitic mass] 29.0 pg 27.0-32.0 [facility] Monocyte percentageOrdered B y: ED PROVIDER on 02-07-2025 Monocytes/100 WBC (Bld) 8.1 % 0-10 [facility] Neutrophil percentageOrdered By: ED PROVIDER on 02-07-2025 Neutrophils/100 WBC (Bld) 72.8 % High 47-70 [facility] No Panel InformationOrdered By: ED PROVIDER on 02-07-2025 55 U/L High <38 [facility] Platelet countOrdered By: ED PROVIDER on 02-07-2025 Platelets (Bld) [#/Vol] 131 10*3/uL Low 150-450 [facility] Potassium measurement (mass/ volume)Ordered By: ED PROVIDER on 02-07-2025 Potassium (Unsp spec) [Mass/Vol] 3.7 mmol/L 3.3-5.1 [facility] RBC Auto (Bld) [#/Vol]Ordere d By: ED PROVIDER on 02-07-2025 RBC (Bld) [#/Vol] 3.17 10*6/uL Low 4.6-6.2 [facility] Serum creatinine measurement (mass/volume)Ordered By: ED PROVIDER on 02-07-2025 Creatinine [Mass/Vol] 1.05 mg/dL 0.70-1.20 [facility] Serum globulin measurementOr dered By: ED PROVIDER on 02-07-2025 Globulin (S) [Mass/Vol] 3.5 g/dL 2.2-4.2 [facility] Serum glucose measurement (m ass/volume)Ordered By: ED PROVIDER on 02-07-2025 Glucose [Mass/Vol] 142 mg/dL High 70-99 [facility] Serum or plasma alanine thomas otransferase (ALT) measurementOrdered By: ED PROVIDER on 02-07-2025 ALT [Catalytic activity/Vol] 30 U/L <47 [facility] Serum or plasma albumin roosevelt urement (mass/volume)Ordered By: ED PROVIDER on 02-07-2025 Albumin [Mass/Vol] 2.2 g/dL Low 3.5-5.0 [facility] Serum or plasma albumin/glob ulin mass ratioOrdered By: ED PROVIDER on 02-07-2025 Albumin/Globulin [Mass ratio] 0.6 {ratio} Low 0.9-2.4 [facility] Serum or plasma alkaline kendrick sphatase measurementOrdered By: ED PROVIDER on 02-07-2025 ALP [Catalytic activity/Vol] 218 U/L High 40-129 [facility] Serum or plasma calcium roosevelt urement (mass/volume)Ordered By: ED PROVIDER on 02-07-2025 Calcium [Mass/Vol] 8.4 mg/dL 7.6-11.0 [facility] Serum or plasma urea nitroge n measurement (mass/volume)Ordered By: ED PROVIDER on 02-07-2025 Urea nitrogen [Mass/Vol] 15 mg/dL 4-19 [facility] Sodium levelOrdered By: ED P ROVIDER on 02-07-2025 Sodium [Moles/Vol] 137 mmol/L 133-145 [facility] Total proteinOrdered By: ED PROVIDER on 02-07-2025 Protein [Mass/Vol] 5.8 g/dL Low 5.9-8.4 [facility] White blood cell (WBC) count Ordered By: ED PROVIDER on 02-07-2025 WBC (Bld) [#/Vol] 10.8 10*3/uL 4.4-11.0 [facility] Culture, Blood (WB)on 2024 CUB Blood cultures x2, f rom two different sites No growth in 5 days. Normal [facility] Comment on above: Performed By: #### M 200.1000 ####[facility] [address] [facility] [place], [address] Anion gap in Serum or Plasma Ordered By: Yaritza Leo on 01-31-2025 Anion gap [Moles/Vol] 9 mmol/L 5-15 [facility] BUN/creatinine ratioOrdered By: Yaritza Leo on 01-31-2025 Urea nitrogen/Creatinine [Mass ratio] 10.7 mg/mg 10- [facility] Basic Metabolic Profile (BMP )on 01-31-2025 BUN/CRE 10.7 RATIO Normal 05-23 [facility] Comment on above: Performed By: #### L 500.2500, L100.0500 ####[facility] [address] [facility] [place], [address] Calcium [Mass/Vol] 8.5 mg/dL Normal 7.6-11.0 [facility] Comment on above: Performed By: #### L 500.2500, L100.0500 ####[facility] [address] [place], [address] Chloride [Moles/Vol] 102 mmol/L Normal 98-108 [facility] Comment on above: Performed By: #### L 500.2500, L100.0500 ####[facility] [address] [place], [address] CO2 [Moles/Vol] 22.6 mmol/L Normal 21.0-32.0 [facility] Comment on above: Performed By: #### L 500.2500, L100.0500 ####[facility] [address] [place], [address] Creatinine [Mass/Vol] 0.95 mg/dL Normal 0.70-1.20 [facility] Comment on above: Performed By: #### L 500.2500, L100.0500 ####[facility] [address] [place], [address] ECRCL 108.71 ml/min Normal 50-250 [facility] Comment on above: Performed By: #### L 500.2500, L100.0500 ####[facility] [address] [place], [address] GAP 9 Normal 5-15 [facility] Comment on above: Performed By: #### L 500.2500, L100.0500 ####[facility] [address] [place], [address] GFR/1.73 sq M.predicted among non-blacks MDRD (S/P/Bld) [Vol rate/Area] 93 mL/min/{1.73_m2} Normal >60 [facility] Comment on above: Result Comment: mL/m in/1.73m2 CKD-EPI Creatinine Equation (2020) Performed By: #### L 500.2500, L100.0500 ####[facility] [address] [place], [address] Glucose [Mass/Vol] 143 mg/dL High 70-99 [facility] Comment on above: Performed By: #### L 500.2500, L100.0500 ####[facility] [address] [place], [address] Potassium [Moles/Vol] 3.9 mmol/L Normal 3.3-5.1 [facility] Comment on above: Performed By: #### L 500.2500, L100.0500 ####[facility] [address] [place], [address] Sodium [Moles/Vol] 133 mmol/L Normal 133-145 [facility] Comment on above: Performed By: #### L 500.2500, L100.0500 ####[facility] [address] [place], [address] Urea nitrogen [Mass/Vol] 10 mg/dL Normal 4-19 [facility] Comment on above: Performed By: #### L 500.2500, L100.0500 ####[facility] [address] [place], [address] Bedside Glucoseon 01-31-2025 FINGERSTICK GLU 129 mg/dL High 74-106 [facility] Comment on above: Result Comment: BRISA GEMENT OF PATIENT CARE PER NURSING PROTOCOL Performed By: #### L 501.080 ####[facility] [address] [place], [address] FINGERSTICK GLU 179 mg/dL High 74-106 [facility] Comment on above: Result Comment: BRISA GEMENT OF PATIENT CARE PER NURSING PROTOCOL Performed By: #### L 501.080 ####[facility] [address] [place], [address] FINGERSTICK GLU 149 mg/dL High 74-106 [facility] Comment on above: Result Comment: BRISA GEMENT OF PATIENT CARE PER NURSING PROTOCOL Performed By: #### L 501.080 ####[facility] [address] [place], [address] CBC-Complete Blood Cnt No Di ffon 01-31-2025 Erythrocyte distribution width (RBC) [Ratio] 17.7 % High 11.6-14.6 [facility] Comment on above: Performed By: #### L 500.2500, L100.0500 ####[facility] [address] [place], [address] Hematocrit (Bld) [Volume fraction] 23.8 % Low 40-54 [facility] Comment on above: Performed By: #### L 500.2500, L100.0500 ####[facility] [address] [place], [address] Hemoglobin (Bld) [Mass/Vol] 7.9 g/dL Low 13.0-16.5 [facility] Comment on above: Performed By: #### L 500.2500, L100.0500 ####[facility] [address] [place], [address] MCH (RBC) [Entitic mass] 29.8 pg Normal 27.0-32.0 [facility] Comment on above: Performed By: #### L 500.2500, L100.0500 ####[facility] [address], [address] MCHC (RBC) [Mass/Vol] 33.2 g/dL Normal 32-36 [facility] Comment on above: Performed By: #### L 500.2500, L100.0500 ####[facility] [address] [place], [address] MCV (RBC) [Entitic vol] 89.8 fL Normal 80-94 [facility] Comment on above: Performed By: #### L 500.2500, L100.0500 ####[facility] [address], [address] Platelet mean volume (Bld) [Entitic vol] 10.6 fL Normal 6.2-12.0 [facility] Comment on above: Performed By: #### L 500.2500, L100.0500 ####[facility] [address] [place], [address] Platelets (Bld) [#/Vol] 108 10*3/uL Low 150-450 [facility] Comment on above: Performed By: #### L 500.2500, L100.0500 ####[facility] [address] [place], [address] RBC (Bld) [#/Vol] 2.65 10*6/uL Low 4.6-6.2 [facility] Comment on above: Performed By: #### L 500.2500, L100.0500 ####[facility] [address] [place], [address] RDW SD 56.9 fl High 35.1-43.9 [facility] Comment on above: Performed By: #### L 500.2500, L100.0500 ####[facility] [address] [place], [address] WBC (Bld) [#/Vol] 5.9 10*3/uL Normal 4.4-11.0 [facility] Comment on above: Performed By: #### L 500.2500, L100.0500 ####[facility] [address] [place], [address] Carbon dioxide, total [Moles /volume] in Central venous bloodOrdered By: Yaritza Leo on 01-31-2025 CO2 [Moles/Vol] 22.6 mmol/L 21.0-32.0 [facility] Chloride assayOrdered By: Raad Leo on 01-31-2025 Chloride [Moles/Vol] 102 mmol/L 98-108 [facility] Erythrocyte distribution wid th ratioOrdered By: Yaritza Leo on 01-31-2025 Erythrocyte distribution width (RBC) [Ratio] 17.7 % High 11.6-14.6 [facility] Erythrocyte distribution wid th standard deviationOrdered By: Yaritza Leo on 01-31-2025 Erythrocyte distribution width (RBC) [Ratio] 56.9 fl High 35.1-43.9 [facility] Glomerular filtration rate ( GFR) estimation/1.73 sq m using serum, plasma, or whole bOrdered By: Yaritza Leo on 01-31-2025 GFR/1.73 sq M.predicted among non-blacks MDRD (S/P/Bld) [Vol rate/Area] 93 mL/min/{1.73_m2} >60 [facility] Gl[facility] deOrdered By: Yaritza Leo on 01-31-2025 Glucose [Mass/Vol] 129 mg/dL High 74-106 [facility] Hematocrit Auto (Bld) [Volum e fraction]Ordered By: Yaritza Leo on 01-31-2025 Hematocrit (Bld) [Volume fraction] 23.8 % Low 40-54 [facility] Hemoglobin measurementOrdere d By: Yaritza Leo on 01-31-2025 Hemoglobin (Bld) [Mass/Vol] 7.9 g/dL Low 13.0-16.5 [facility] MCV (mean corpuscular volume ) determinationOrdered By: Yaritza Leo on 01-31-2025 MCV (RBC) [Entitic vol] 89.8 fL 80-94 [facility] Mean corpuscular hemoglobin (MCH) determinationOrdered By: Yaritza Leo on 01-31-2025 MCH (RBC) [Entitic mass] 29.8 pg 27.0-32.0 [facility] Platelet countOrdered By: Raad Leo on 01-31-2025 Platelets (Bld) [#/Vol] 108 10*3/uL Low 150-450 [facility] Potassium measurement (mass/ volume)Ordered By: Yaritza Leo on 01-31-2025 Potassium (Unsp spec) [Mass/Vol] 3.9 mmol/L 3.3-5.1 [facility] RBC Auto (Bld) [#/Vol]Ordere d By: Yaritza Leo on 01-31-2025 RBC (Bld) [#/Vol] 2.65 10*6/uL Low 4.6-6.2 [facility] Serum creatinine measurement (mass/volume)Ordered By: Yaritza Leo on 01-31-2025 Creatinine [Mass/Vol] 0.95 mg/dL 0.70-1.20 [facility] Serum glucose measurement (m ass/volume)Ordered By: Yaritza Leo on 01-31-2025 Glucose [Mass/Vol] 143 mg/dL High 70-99 [facility] Serum or plasma calcium roosevelt urement (mass/volume)Ordered By: Yaritza Leo on 01-31-2025 Calcium [Mass/Vol] 8.5 mg/dL 7.6-11.0 [facility] Serum or plasma urea nitroge n measurement (mass/volume)Ordered By: Yaritza Leo on 01-31-2025 Urea nitrogen [Mass/Vol] 10 mg/dL 4-19 [facility] Sodium levelOrdered By: Saritha Loe on 01-31-2025 Sodium [Moles/Vol] 133 mmol/L 133-145 [facility] White blood cell (WBC) count Ordered By: Yaritza Leo on 01-31-2025 WBC (Bld) [#/Vol] 5.9 10*3/uL 4.4-11.0 [facility] Absolute lymphocyte countOrd ered By: Yaritza Leo on 01-30-2025 Lymphocytes Auto (Unsp spec) [#/Vol] 1.08 10*3/uL 0.83-4.51 [facility] Automated lymphocyte count a s percentage of total leukocytesOrdered By: Yaritza Leo on 01-30-2025 Lymphocytes/100 WBC Auto (Unsp spec) 20.0 % 19-41 [facility] Basic Metabolic Profile (BMP )on 01-30-2025 BUN/CRE 10.1 RATIO Normal 10-20 [facility] Comment on above: Performed By: #### L 501.5200, L501.2300, L500.2500, L100.0100 ####[facility] [address] [place], [address] Calcium [Mass/Vol] 8.4 mg/dL Normal 7.6-11.0 [facility] Comment on above: Performed By: #### L 501.5200, L501.2300, L500.2500, L100.0100 ####[facility] [address] [place], [address] Chloride [Moles/Vol] 101 mmol/L Normal 98-108 [facility] Comment on above: Performed By: #### L 501.5200, L501.2300, L500.2500, L100.0100 ####[facility] [address] [place], [address] CO2 [Moles/Vol] 17.3 mmol/L Low 21.0-32.0 [facility] Comment on above: Performed By: #### L 501.5200, L501.2300, L500.2500, L100.0100 ####[facility] [address] [place], [address] Creatinine [Mass/Vol] 0.93 mg/dL Normal 0.70-1.20 [facility] Comment on above: Performed By: #### L 501.5200, L501.2300, L500.2500, L100.0100 ####[facility] [address] [place], [address] ECRCL 111.05 ml/min Normal 50-250 [facility] Comment on above: Performed By: #### L 501.5200, L501.2300, L500.2500, L100.0100 ####[facility] [address] [place], [address] GAP 13 Normal 5-15 [facility] Comment on above: Performed By: #### L 501.5200, L501.2300, L500.2500, L100.0100 ####[facility] [address] [place], [address] GFR/1.73 sq M.predicted among non-blacks MDRD (S/P/Bld) [Vol rate/Area] 95 mL/min/{1.73_m2} Normal >60 [facility] Comment on above: Result Comment: mL/m in/1.73m2 CKD-EPI Creatinine Equation (2020) Performed By: #### L 501.5200, L501.2300, L500.2500, L100.0100 ####[facility] [address] [place], [address] Glucose [Mass/Vol] 139 mg/dL High 70-99 [facility] Comment on above: Performed By: #### L 501.5200, L501.2300, L500.2500, L100.0100 ####[facility] [address] [place], [address] Potassium [Moles/Vol] 3.5 mmol/L Normal 3.3-5.1 [facility] Comment on above: Result Comment: Hemo lysis present, Results??could be affected.?? Performed By: #### L 501.5200, L501.2300, L500.2500, L100.0100 ####[facility] [address] [place], [address] Sodium [Moles/Vol] 131 mmol/L Low 133-145 [facility] Comment on above: Performed By: #### L 501.5200, L501.2300, L500.2500, L100.0100 ####[facility] [address] [place], [address] Urea nitrogen [Mass/Vol] 9 mg/dL Normal 4-19 [facility] Comment on above: Performed By: #### L 501.5200, L501.2300, L500.2500, L100.0100 ####[facility] [address] [place], [address] Basophil percentageOrdered B y: Yaritza Leo on 01-30-2025 Basophils/100 WBC (Bld) 0.7 % Normal 0-1 [facility] Comment on above: Performed By: #### L 501.5200, L501.2300, L500.2500, L100.0100 ####[facility] [address] [place], [address] Bedside Glucoseon 01-30-2025 FINGERSTICK GLU 170 mg/dL High 74-106 [facility] Comment on above: Result Comment: BRISA GEMENT OF PATIENT CARE PER NURSING PROTOCOL Performed By: #### L 501.080 ####[facility] [address] [place], [address] FINGERSTICK GLU 122 mg/dL High -106 [facility] Comment on above: Result Comment: BRISA GEMENT OF PATIENT CARE PER NURSING PROTOCOL Performed By: #### L 501.080 ####[facility] [address] [place], [address] FINGERSTICK GLU 119 mg/dL High [facility]106 [facility] Comment on above: Result Comment: BRISA GEMENT OF PATIENT CARE PER NURSING PROTOCOL Performed By: #### L 501.080 ####[facility] [address] [place], [address] FINGERSTICK GLU 116 mg/dL High -106 [facility] Comment on above: Result Comment: BRISA GEMENT OF PATIENT CARE PER NURSING PROTOCOL Performed By: #### L 501.080 ####[facility] [address] [place], [address] CBC W/Diff, Automatedon - Absolute Lymph 1.08 X10 3/uL Normal 0.83-4.51 [facility] Comment on above: Performed By: #### L 501.5200, L501.2300, L500.2500, L100.0100 ####[facility] [address] [place], [address] Absolute Neut 2.9 X10 3/uL Normal 2.0-7.7 [facility] Comment on above: Performed By: #### L 501.5200, L501.2300, L500.2500, L100.0100 ####[facility] [address] [place], [address] Erythrocyte distribution width (RBC) [Ratio] 18.1 % High 11.6-14.6 [facility] Comment on above: Performed By: #### L 501.5200, L501.2300, L500.2500, L100.0100 ####[facility] [address] [place], [address] Hematocrit (Bld) [Volume fraction] 24.1 % Low 40-54 [facility] Comment on above: Performed By: #### L 501.5200, L501.2300, L500.2500, L100.0100 ####[facility] [address] [place], [address] Hemoglobin (Bld) [Mass/Vol] 7.7 g/dL Low 13.0-16.5 [facility] Comment on above: Performed By: #### L 501.5200, L501.2300, L500.2500, L100.0100 ####[facility] [address] [place], [address] IG% 0.600 Normal 0.0-0.9 [facility] Comment on above: Result Comment: IG% - Immature Granulocytes (promyelocytes, myelocytes andmetamyelocytes) > 1% indicates that a LEFT SHIFT is Present. Performed By: #### L 501.5200, L501.2300, L500.2500, L100.0100 ####[facility] [address] [place], [address] Lymphocytes/100 WBC (Bld) 20.0 % Normal 19-41 [facility] Comment on above: Performed By: #### L 501.5200, L501.2300, L500.2500, L100.0100 ####[facility] [address] [place], [address] MCH (RBC) [Entitic mass] 29.2 pg Normal 27.0-32.0 [facility] Comment on above: Performed By: #### L 501.5200, L501.2300, L500.2500, L100.0100 ####[facility] [address] [place], [address] MCHC (RBC) [Mass/Vol] 32.0 g/dL Normal 32-36 [facility] Comment on above: Performed By: #### L 501.5200, L501.2300, L500.2500, L100.0100 ####[facility] [address] [place], [address] MCV (RBC) [Entitic vol] 91.3 fL Normal 80-94 [facility] Comment on above: Performed By: #### L 501.5200, L501.2300, L500.2500, L100.0100 ####[facility] [address] [place], [address] Nucleated RBC (Bld) [#/Vol] 0 10*3/uL Normal 0-5 [facility] Comment on above: Performed By: #### L 501.5200, L501.2300, L500.2500, L100.0100 ####[facility] [address] [place], [address] Platelet mean volume (Bld) [Entitic vol] 10.5 fL Normal 6.2-12.0 [facility] Comment on above: Performed By: #### L 501.5200, L501.2300, L500.2500, L100.0100 ####[facility] [address] [place], [address] Platelets (Bld) [#/Vol] 108 10*3/uL Low 150-450 [facility] Comment on above: Performed By: #### L 501.5200, L501.2300, L500.2500, L100.0100 ####[facility] [address] [place], [address] RBC (Bld) [#/Vol] 2.64 10*6/uL Low 4.6-6.2 [facility] Comment on above: Performed By: #### L 501.5200, L501.2300, L500.2500, L100.0100 ####[facility] [address] [place], [address] RDW SD 61.1 fl High 35.1-43.9 [facility] Comment on above: Performed By: #### L 501.5200, L501.2300, L500.2500, L100.0100 ####[facility] [address] [place], [address] WBC (Bld) [#/Vol] 5.4 10*3/uL Normal 4.4-11.0 [facility] Comment on above: Performed By: #### L 501.5200, L501.2300, L500.2500, L100.0100 ####[facility] [address] [place], [address] Eosinophil percentageOrdered By: Yaritza Leo on 01-30-2025 Eosinophils/100 WBC (Bld) 7.0 % High 0-5 [facility] Comment on above: Performed By: #### L 501.5200, L501.2300, L500.2500, L100.0100 ####[facility] [address] [place], [address] Immature granulocytes/100 WB C Auto (Bld)Ordered By: Yaritza Leo on 01-30-2025 Immature granulocytes/100 WBC (Bld) 0.600 % 0.0-0.9 [facility] Magnesiumon 01-30-2025 Magnesium [Mass/Vol] 1.7 mg/dL Normal 1.5-2.2 [facility] Comment on above: Performed By: #### L 501.5200, L501.2300, L500.2500, L100.0100 ####[facility] [address] [place], [address] Magnesium measurement (mass/ volume)Ordered By: Yaritza Leo on 01-30-2025 Magnesium (Unsp spec) [Mass/Vol] 1.7 mg/dL 1.5-2.2 [facility] Monocyte percentageOrdered B y: Yaritza Leo on 01-30-2025 Monocytes/100 WBC (Bld) 18.5 % High 0-10 [facility] Comment on above: Performed By: #### L 501.5200, L501.2300, L500.2500, L100.0100 ####[facility] [address] [place], [address] Neutrophil percentageOrdered By: Yaritza Leo on 01-30-2025 Neutrophils/100 WBC (Bld) 53.2 % Normal 47-70 [facility] Comment on above: Performed By: #### L 501.5200, L501.2300, L500.2500, L100.0100 ####[facility] [address] [place], [address] Phosphoruson 01-30-2025 Phosphate [Mass/Vol] 2.7 mg/dL Normal 2.7-4.5 [facility] Comment on above: Performed By: #### L 501.5200, L501.2300, L500.2500, L100.0100 ####[facility] [address] [place], [address] Urine Cultureon 01-30-2025 URC Normal [facility] Comment on above: Performed By: #### M 100.2200 ####[facility] [address] [place], [address] Bedside Glucoseon 01-29-2025 FINGERSTICK GLU 174 mg/dL High [address] [place] [address] Comment on above: Result Comment: BRISA GEMENT OF PATIENT CARE PER NURSING PROTOCOL Performed By: #### L 501.080 ####[facility] [address] [place], [address] FINGERSTICK GLU 163 mg/dL High [address] [place] [address] Comment on above: Result Comment: BRISA GEMENT OF PATIENT CARE PER NURSING PROTOCOL Performed By: #### L 501.080 ####[facility] [address] [place], [address] FINGERSTICK GLU 196 mg/dL High [address] [place] [address] Comment on above: Result Comment: BRISA GEMENT OF PATIENT CARE PER NURSING PROTOCOL Performed By: #### L 501.080 ####[facility] [place] [address] [place], [address] FINGERSTICK GLU 237 mg/dL High [address] [place] [address] Comment on above: Result Comment: BRISA GEMENT OF PATIENT CARE PER NURSING PROTOCOL Performed By: #### L 501.080 ####[facility] [address] [place], [address] FINGERSTICK GLU 172 mg/dL High [address] [place] [address] Comment on above: Result Comment: BRISA GEMENT OF PATIENT CARE PER NURSING PROTOCOL Performed By: #### L 501.080 ####[facility] [address] [place], [address] Bilirubin, totalOrdered By: Boone Izquierdo on 01-29-2025 Bilirubin [Mass/Vol] 1.81 mg/dL High 0.00-1.30 [facility] CBC W/Diff, Automatedon - Absolute Lymph 0.83 X10 3/uL Normal 0.83-4.51 [facility] Comment on above: Performed By: #### L 100.0100, L500.4050 ####[facility] [address] [place], [address] Absolute Neut 3.0 X10 3/uL Normal 2.0-7.7 [facility] Comment on above: Performed By: #### L 100.0100, L500.4050 ####[facility] [address] [place], [address] Basophils/100 WBC (Bld) 0.8 % Normal 0-1 [facility] Comment on above: Performed By: #### L 100.0100, L500.4050 ####[facility] [address] [place], [address] Eosinophils/100 WBC (Bld) 5.3 % High 0-5 [facility] Comment on above: Performed By: #### L 100.0100, L500.4050 ####[facility] [address] [place], [address] Erythrocyte distribution width (RBC) [Ratio] 18.4 % High 11.6-14.6 [facility] Comment on above: Performed By: #### L 100.0100, L500.4050 ####[facility] [address] [place], [address] Hematocrit (Bld) [Volume fraction] 24.8 % Low 40-54 [facility] Comment on above: Performed By: #### L 100.0100, L500.4050 ####[facility] [address] [place], [address] Hemoglobin (Bld) [Mass/Vol] 8.1 g/dL Low 13.0-16.5 [facility] Comment on above: Performed By: #### L 100.0100, L500.4050 ####[facility] [address] [place], [address] IG% 0.800 Normal 0.0-0.9 [facility] Comment on above: Result Comment: IG% - Immature Granulocytes (promyelocytes, myelocytes andmetamyelocytes) > 1% indicates that a LEFT SHIFT is Present. Performed By: #### L 100.0100, L500.4050 ####[facility] [address] [place], [address] Lymphocytes/100 WBC (Bld) 17.1 % Low 19-41 [facility] Comment on above: Performed By: #### L 100.0100, L500.4050 ####[facility] [address] [place], [address] MCH (RBC) [Entitic mass] 29.6 pg Normal 27.0-32.0 [facility] Comment on above: Performed By: #### L 100.0100, L500.4050 ####[facility] [address] [place], [address] MCHC (RBC) [Mass/Vol] 32.7 g/dL Normal 32-36 [facility] Comment on above: Performed By: #### L 100.0100, L500.4050 ####[facility] [address] [place], [address] MCV (RBC) [Entitic vol] 90.5 fL Normal 80-94 [facility] Comment on above: Performed By: #### L 100.0100, L500.4050 ####[facility] [address] [place], [address] Monocytes/100 WBC (Bld) 15.2 % High 0-10 [facility] Comment on above: Performed By: #### L 100.0100, L500.4050 ####[facility] [address] [place], [address] Neutrophils/100 WBC (Bld) 60.8 % Normal 47-70 [facility] Comment on above: Performed By: #### L 100.0100, L500.4050 ####[facility] [address] [place], [address] Nucleated RBC (Bld) [#/Vol] 0 10*3/uL Normal 0-5 [facility] Comment on above: Performed By: #### L 100.0100, L500.4050 ####[facility] [address] [place], [address] Platelet mean volume (Bld) [Entitic vol] 11.6 fL Normal 6.2-12.0 [facility] Comment on above: Performed By: #### L 100.0100, L500.4050 ####[facility] [address] [place], [address] Platelets (Bld) [#/Vol] 120 10*3/uL Low 150-450 [facility] Comment on above: Performed By: #### L 100.0100, L500.4050 ####[facility] [address] [place], [address] RBC (Bld) [#/Vol] 2.74 10*6/uL Low 4.6-6.2 [facility] Comment on above: Performed By: #### L 100.0100, L500.4050 ####[facility] [address] [place], [address] RDW SD 60.7 fl High 35.1-43.9 [facility] Comment on above: Performed By: #### L 100.0100, L500.4050 ####[facility] [address] [place], [address] WBC (Bld) [#/Vol] 4.9 10*3/uL Normal 4.4-11.0 [facility] Comment on above: Performed By: #### L 100.0100, L500.4050 ####[facility] [address] [place], [address] Comprehensive Metabolic Prof ilon 01-29-2025 Albumin [Mass/Vol] 2.3 g/dL Low 3.5-5.0 [facility] Comment on above: Performed By: #### L 100.0100, L500.4050 ####[facility] [address] [place], [address] Albumin/Globulin [Mass ratio] 0.8 {ratio} Low 0.9-2.4 [facility] Comment on above: Performed By: #### L 100.0100, L500.4050 ####[facility] [address] [place], [address] ALK PHOS 180 U/L High 40-129 [facility] Comment on above: Performed By: #### L 100.0100, L500.4050 ####[facility] [address] [place], [address] ALT [Catalytic activity/Vol] 30 U/L Normal <=46 [facility] Comment on above: Performed By: #### L 100.0100, L500.4050 ####[facility] [address] [place], [address] AST [Catalytic activity/Vol] 52 U/L High <=37 [facility] Comment on above: Performed By: #### L 100.0100, L500.4050 ####[facility] [address] [place], [address] Bilirubin [Mass/Vol] 1.81 mg/dL High 0.00-1.30 [facility] Comment on above: Performed By: #### L 100.0100, L500.4050 ####[facility] [address] [place], [address] BUN/CRE 11.6 RATIO Normal 10-20 [facility] Comment on above: Performed By: #### L 100.0100, L500.4050 ####[facility] [address] [place], [address] Calcium [Mass/Vol] 8.8 mg/dL Normal 7.6-11.0 [facility] Comment on above: Performed By: #### L 100.0100, L500.4050 ####[facility] [address] [place], [address] Chloride [Moles/Vol] 100 mmol/L Normal 98-108 [facility] Comment on above: Performed By: #### L 100.0100, L500.4050 ####[facility] [address] [place], [address] CO2 [Moles/Vol] 19.5 mmol/L Low 21.0-32.0 [facility] Comment on above: Performed By: #### L 100.0100, L500.4050 ####[facility] [address] [place], [address] Creatinine [Mass/Vol] 1.09 mg/dL Normal 0.70-1.20 [facility] Comment on above: Performed By: #### L 100.0100, L500.4050 ####[facility] [address] [place], [address] ECRCL 94.75 ml/min Normal 50-250 [facility] Comment on above: Performed By: #### L 100.0100, L500.4050 ####[facility] [address] [place], [address] GAP 14 Normal 5-15 [facility] Comment on above: Performed By: #### L 100.0100, L500.4050 ####[facility] [address] [place], [address] GFR/1.73 sq M.predicted among non-blacks MDRD (S/P/Bld) [Vol rate/Area] 79 mL/min/{1.73_m2} Normal >60 [facility] Comment on above: Result Comment: mL/m in/1.73m2 CKD-EPI Creatinine Equation (2020) Performed By: #### L 100.0100, L500.4050 ####[facility] [address] [place], [address] Globulin (S) [Mass/Vol] 3.1 g/dL Normal 2.2-4.2 [facility] Comment on above: Performed By: #### L 100.0100, L500.4050 ####[facility] [address] [place], [address] Glucose [Mass/Vol] 265 mg/dL High 70-99 [facility] Comment on above: Performed By: #### L 100.0100, L500.4050 ####[facility] [address] [place], [address] Potassium [Moles/Vol] 3.5 mmol/L Normal 3.3-5.1 [facility] Comment on above: Performed By: #### L 100.0100, L500.4050 ####[facility] [address] [place], [address] Sodium [Moles/Vol] 133 mmol/L Normal 133-145 [facility] Comment on above: Performed By: #### L 100.0100, L500.4050 ####[facility] [address] [place], [address] T PROT 5.4 g/dL Low 5.9-8.4 [facility] Comment on above: Performed By: #### L 100.0100, L500.4050 ####[facility] [address] [place], [address] Urea nitrogen [Mass/Vol] 13 mg/dL Normal 4-19 [facility] Comment on above: Performed By: #### L 100.0100, L500.4050 ####[facility] [address] [place], [place], [address] No Panel InformationOrdered By: Boone Izquierdo on 01-29-2025 52 U/L High <38 [facility] Serum globulin measurementOr dered By: Boone Izquierdo on 01-29-2025 Globulin (S) [Mass/Vol] 3.1 g/dL 2.2-4.2 [facility] Serum or plasma alanine thomas otransferase (ALT) measurementOrdered By: Boone Izquierdo on 01-29-2025 ALT [Catalytic activity/Vol] 30 U/L <47 [facility] Serum or plasma albumin roosevelt urement (mass/volume)Ordered By: Boone Izquierdo on 01-29-2025 Albumin [Mass/Vol] 2.3 g/dL Low 3.5-5.0 [facility] Serum or plasma albumin/glob ulin mass ratioOrdered By: Boone Izquierdo on 01-29-2025 Albumin/Globulin [Mass ratio] 0.8 {ratio} Low 0.9-2.4 [facility] Serum or plasma alkaline kendrick sphatase measurementOrdered By: Boone Izquierdo on 01-29-2025 ALP [Catalytic activity/Vol] 180 U/L High 40-129 [facility] Total proteinOrdered By: Danita Izquierdo on 01-29-2025 Protein [Mass/Vol] 5.4 g/dL Low 5.9-8.4 [facility] Abdomen/Pelvis W IV Cont ONL Yon 01-28-2025 Abdomen/Pelvis W IV Cont ONLY Normal [facility] Absolute lymphocyte countOrd ered By: Danny Hutton on 01-28-2025 Lymphocytes Auto (Unsp spec) [#/Vol] 0.98 10*3/uL 0.83-4.51 [facility] Activated partial thrombopla stin time (aPTT) in platelet poor plasma by coagulation aOrdered By: Danny Hutton on 01-28-2025 aPTT Coag (PPP) [Time] 38.4 s High 24.1-36.2 [facility] Ammoniaon 01-28-2025 Ammonia (P) [Moles/Vol] 108.0 umol/L High 16-60 [facility] Comment on above: Order Comment: ROSIO Gupta PREVIOUS SPECIMEN REJECTED DUE TOHEMOLYSIS. 01/28/25 [address]. Performed By: #### L 503.5510 ####[facility] [address] [place], [place], [id number] Anion gap in Serum or Plasma Or[facility] By: [facility] 01-28-2025 Anion gap [Moles/Vol] 14 mmol/L - [facility] Automated lymphocyte count a s percentage of total leukocytesOrdered By: [facility] CampusbrianSt. Cloud HospitalLucero on 01-28-2025 Lymphocytes/100 WBC Auto (Unsp spec) 18.8 % Low 19-41 [facility] BUN/creatinine ratioOrdered By: [facility]uk[facility] on 01-28-2025 Urea nitrogen/Creatinine [Mass ratio] 12.8 mg/mg 10-20 [facility] Basic Metabolic Profile (BMP )on 01-28-2025 CO2 [Moles/Vol] 22.1 mmol/L Normal 21.0-32.0 [facility] Comment on above: Performed By: #### L 500.3400, L503.6005, L300.3900, L500.2500, L501.2450, L501.5200, L300.4310, L501.4021, L100.0100, L503.7505 ####[facility] [address] [place], [place], [phone] GAP 14 Normal - [facility] Comment on above: Performed By: #### L 500.3400, L503.6005, L300.3900, L500.2500, L501.2450, L501.5200, L300.4310, L501.4021, L100.0100, L503.7505 ####[facility] [address] [place], [place], [address] Basophil percentageOrdered B y: Danny Hutton on 01-28-2025 Basophils/100 WBC (Bld) 0.8 % 0-1 [facility] Bedside Glucoseon 01-28-2025 FINGERSTICK GLU 102 mg/dL Normal 74-106 [facility] Comment on above: Result Comment: BRISA GEMENT OF PATIENT CARE PER NURSING PROTOCOL Performed By: #### L 501.080 ####[facility] [address] [place], [place], [address] FINGERSTICK GLU 96 mg/dL Normal 74-106 [facility] Comment on above: Result Comment: BRISA GEMENT OF PATIENT CARE PER NURSING PROTOCOL Performed By: #### L 501.080 ####[facility] [address] [place], [place], [address] Bilirubin Test strip Ql (U)O rdered By: Danny Hutton on 01-28-2025 Bilirubin Ql (U) Negative Negative [facility] Bilirubin directOrdered By: Danny Anni on 01-28-2025 Bilirubin.direct [Mass/Vol] 1.04 mg/dL High 0.00-0.30 [facility] Bilirubin, totalOrdered By: Danny Hutton on 01-28-2025 Bilirubin [Mass/Vol] 1.91 mg/dL High 0.00-1.30 [facility] Blood cultureOrdered By: Silvano Hutton on 01-28-2025 Bacteria identified Cx Nom (Bld) No growth in 5 days. [facility] Bacteria identified Cx Nom (Bld) No growth in 5 days. [facility] CBC W/Diff, Automatedon 01-03 Absolute Lymph 0.98 X10 3/uL Normal 0.83-4.51 [facility] Comment on above: Performed By: #### L 500.3400, L503.6005, L300.3900, L500.2500, L501.2450, L501.5200, L300.4310, L501.4021, L100.0100, L503.7505 ####[facility] [address] [place], [place], [phone] Absolute Neut 3.0 X10 3/uL Normal 2.0-7.7 [facility] Comment on above: Performed By: #### L 500.3400, L503.6005, L300.3900, L500.2500, L501.2450, L501.5200, L300.4310, L501.4021, L100.0100, L503.7505 ####[facility] [address] [place], [phone]) Basophils/100 WBC (Bld) 0.8 % Normal 0-1 [facility] Comment on above: Performed By: #### L 500.3400, L503.6005, L300.3900, L500.2500, L501.2450, L501.5200, L300.4310, L501.4021, L100.0100, L503.7505 ####[facility] [address] [place], [address] Eosinophils/100 WBC (Bld) 4.6 % Normal 0-5 [facility] Comment on above: Performed By: #### L 500.3400, L503.6005, L300.3900, L500.2500, L501.2450, L501.5200, L300.4310, L501.4021, L100.0100, L503.7505 ####[facility] [address] [place], [place], [phone] Erythrocyte distribution width (RBC) [Ratio] 18.4 % High 11.6-14.6 [facility] Comment on above: Performed By: #### L 500.3400, L503.6005, L300.3900, L500.2500, L501.2450, L501.5200, L300.4310, L501.4021, L100.0100, L503.7505 ####[facility] [address] [place], [address] Hematocrit (Bld) [Volume fraction] 25.2 % Low 40-54 [facility] Comment on above: Performed By: #### L 500.3400, L503.6005, L300.3900, L500.2500, L501.2450, L501.5200, L300.4310, L501.4021, L100.0100, L503.7505 ####[facility] [address] [place], [address] Hemoglobin (Bld) [Mass/Vol] 8.3 g/dL Low 13.0-16.5 [facility] Comment on above: Performed By: #### L 500.3400, L503.6005, L300.3900, L500.2500, L501.2450, L501.5200, L300.4310, L501.4021, L100.0100, L503.7505 ####[facility] [address] [facility] [place], [place], [phone] IG% 1.300 High 0.0-0.9 [facility] Comment on above: Result Comment: IG% - Immature Granulocytes (promyelocytes, myelocytes andmetamyelocytes) > 1% indicates that a LEFT SHIFT is Present. Performed By: #### L 500.3400, L503.6005, L300.3900, L500.2500, L501.2450, L501.5200, L300.4310, L501.4021, L100.0100, L503.7505 ####[facility] [address] [place], [address] Lymphocytes/100 WBC (Bld) 18.8 % Low 19-41 [facility] Comment on above: Performed By: #### L 500.3400, L503.6005, L300.3900, L500.2500, L501.2450, L501.5200, L300.4310, L501.4021, L100.0100, L503.7505 ####[facility] [address] [place], [address] MCH (RBC) [Entitic mass] 29.4 pg Normal 27.0-32.0 [facility] Comment on above: Performed By: #### L 500.3400, L503.6005, L300.3900, L500.2500, L501.2450, L501.5200, L300.4310, L501.4021, L100.0100, L503.7505 ####[facility] [address], [address] MCHC (RBC) [Mass/Vol] 32.9 g/dL Normal 32-36 [facility] Comment on above: Performed By: #### L 500.3400, L503.6005, L300.3900, L500.2500, L501.2450, L501.5200, L300.4310, L501.4021, L100.0100, L503.7505 ####[facility] [address] [facility] [place], [place], [phone] MCV (RBC) [Entitic vol] 89.4 fL Normal 80-94 [facility] Comment on above: Performed By: #### L 500.3400, L503.6005, L300.3900, L500.2500, L501.2450, L501.5200, L300.4310, L501.4021, L100.0100, L503.7505 ####[facility] [address] [facility] [place], [address] Monocytes/100 WBC (Bld) 16.7 % High 0-10 [facility] Comment on above: Performed By: #### L 500.3400, L503.6005, L300.3900, L500.2500, L501.2450, L501.5200, L300.4310, L501.4021, L100.0100, L503.7505 ####[facility] [address] [place], [place], [phone] Neutrophils/100 WBC (Bld) 57.8 % Normal 47-70 [facility] Comment on above: Performed By: #### L 500.3400, L503.6005, L300.3900, L500.2500, L501.2450, L501.5200, L300.4310, L501.4021, L100.0100, L503.7505 ####[facility] [address] [facility] [place], [place], [phone] Nucleated RBC (Bld) [#/Vol] 0 10*3/uL Normal 0-5 [facility] Comment on above: Performed By: #### L 500.3400, L503.6005, L300.3900, L500.2500, L501.2450, L501.5200, L300.4310, L501.4021, L100.0100, L503.7505 ####[facility] [address] [facility] [place], [place], [phone] Platelet mean volume (Bld) [Entitic vol] 11.5 fL Normal 6.2-12.0 [facility] Comment on above: Performed By: #### L 500.3400, L503.6005, L300.3900, L500.2500, L501.2450, L501.5200, L300.4310, L501.4021, L100.0100, L503.7505 ####[facility] [facility] [address] [facility] [place], [place], [phone] Platelets (Bld) [#/Vol] 115 10*3/uL Low 150-450 [facility] [place] Comment on above: Performed By: #### L 500.3400, L503.6005, L300.3900, L500.2500, L501.2450, L501.5200, L300.4310, L501.4021, L100.0100, L503.7505 ####[facility] [place] [address] [place], [place], [phone] RBC (Bld) [#/Vol] 2.82 10*6/uL Low 4.6-6.2 [facility] Comment on above: Performed By: #### L 500.3400, L503.6005, L300.3900, L500.2500, L501.2450, L501.5200, L300.4310, L501.4021, L100.0100, L503.7505 ####[facility] [place] [address] [place], [place], [phone]) RDW SD 60.7 fl High 35.1-43.9 [facility] Comment on above: Performed By: #### L 500.3400, L503.6005, L300.3900, L500.2500, L501.2450, L501.5200, L300.4310, L501.4021, L100.0100, L503.7505 ####[facility] [place] [address] [place], [place], [phone](866) WBC (Bld) [#/Vol] 5.2 10*3/uL Normal 4.4-11.0 [facility] Comment on above: Performed By: #### L 500.3400, L503.6005, L300.3900, L500.2500, L501.2450, L501.5200, L300.4310, L501.4021, L100.0100, L503.7505 ####[facility] [place] [address] [facility] [place], [address] Carbon dioxide, total [Moles /volume] in Central venous bloodOrdered By: Danny Hutton on 01-28-2025 CO2 [Moles/Vol] 22.1 mmol/L 21.0-32.0 [facility] [place] Chest PA and Lateralon 01-28 Chest PA and Lateral Normal [facility] Chloride assayOrdered By: Darin Hutton on 01-28-2025 Chloride [Moles/Vol] 95 mmol/L Low 98-108 [facility] Emergency Department Summary on 01-28-2025 Emergency Department Summary Normal [facility] Eosinophil percentageOrdered By: Danny Hutton on 01-28-2025 Eosinophils/100 WBC (Bld) 4.6 % 0-5 [facility] [place] Erythrocyte distribution wid th ratioOrdered By: Danny Hutton on 01-28-2025 Erythrocyte distribution width (RBC) [Ratio] 18.4 % High 11.6-14.6 [facility] Erythrocyte distribution wid th standard deviationOrdered By: Danny Barker on 01-28-2025 Erythrocyte distribution width (RBC) [Ratio] 60.7 fl High 35.1-43.9 [facility] [place] Glomerular filtration rate ( GFR) estimation/1.73 sq m using serum, plasma, or whole bOrdered By: Danny Hutton on 01-28-2025 GFR/1.73 sq M.predicted among non-blacks MDRD (S/P/Bld) [Vol rate/Area] 73 mL/min/{1.73_m2} >60 [facility] [place] H AND P Exam - Hospitaliston 01-28-2025 H&P Exam - Hospitalist Normal [facility] Hematocrit Auto (Bld) [Volum e fraction]Ordered By: Danny Hutton on 01-28-2025 Hematocrit (Bld) [Volume fraction] 25.2 % Low 40-54 [facility] [place] Hemoglobin measurementOrdere d By: Danny Hutton on 01-28-2025 Hemoglobin (Bld) [Mass/Vol] 8.3 g/dL Low 13.0-16.5 [facility] [place] Immature granulocytes/100 WB C Auto (Bld)Ordered By: Danny Hutton on 01-28-2025 Immature granulocytes/100 WBC (Bld) 1.300 % High 0.0-0.9 [facility] Influenza virus A and B and SARS-CoV-2 (COVID-19) and Respiratory syncytial virus RNAOrdered By: Danny JustoJack on 01-28-2025 SARS-CoV-2 (COVID-19) RNA ANANTH+probe Ql (Unsp spec) [facility] Ketones Test strip Ql (U)Ord ered By: Danny KempJack on 01-28-2025 Ketones Ql (U) Negative Negative [facility] L499.0042on 01-28-2025 Trop T High Sen Normal <=22 [facility] [place] Comment on above: Result Comment: Canc elljustin via OM: Ordered Performed By: #### L 499.0042 ####[facility] [place] [address] [place], [address] L501.4021on 01-28-2025 Trop T High Sen 13 ng/L Normal <=22 [facility] [place] Comment on above: Performed By: #### L 500.3400, L503.6005, L300.3900, L500.2500, L501.2450, L501.5200, L300.4310, L501.4021, L100.0100, L503.7505 ####[facility] [place] [address] [place], [place], [phone] L503.7505on 01-28-2025 Natriuretic peptide B (Bld) [Mass/Vol] 140 pg/mL Normal <=900 [facility] [place] Comment on above: Result Comment: Hear t Failure Unlikely: < 300 pg/mLHeart Failure Likely< 50 Years: > 450 pg/mL50-75 Years: > 900 pg/mL>75 Years: > 1800 pg/mL Performed By: #### L 500.3400, L503.6005, L300.3900, L500.2500, L501.2450, L501.5200, L300.4310, L501.4021, L100.0100, L503.7505 ####[facility] [address] [place], [place], [phone] Lactic Acidon 01-28-2025 Lactate [Moles/Vol] 2.8 mmol/L Invalid Interpretation Code 0.0-2.0 [facility] [place] Comment on above: Result Comment: Crit ical Result(s) Called at: 01/28/2025-09:07 by: Jennifer Marsh.??Results read back by same. Performed By: #### L 503.6005 ####[facility] [address] [place], [place], [phone] Lactate [Moles/Vol] 3.4 mmol/L Invalid Interpretation Code 0.0-2.0 [facility] Comment on above: Order Comment: Y Result Comment: Crit ical Result(s) Called at: 01/28/2025-04:24 by: Jennifer Alva.??Results read back by same. Performed By: #### L 500.3400, L503.6005, L300.3900, L500.2500, L501.2450, L501.5200, L300.4310, L501.4021, L100.0100, L503.7505 ####[facility] [place] [address] [place], [place], [phone]([phone]) Lipaseon 01-28-2025 Lipase [Catalytic activity/Vol] 33 U/L Normal 13-75 [facility] [place] Comment on above: Result Comment: Plea se note:LIPASE revised reference range effective 22.New Lipase methodology. Expected to produce lower valuesthan the previous assay method.NEW Reference Range: 13 - 75 U/L Performed By: #### L 500.3400, L503.6005, L300.3900, L500.2500, L501.2450, L501.5200, L300.4310, L501.4021, L100.0100, L503.7505 ####[facility] [address] [place], [place], [phone] Liver Profileon 01-28-2025 Albumin [Mass/Vol] 2.5 g/dL Low 3.5-5.0 [facility] Comment on above: Performed By: #### L 500.3400, L503.6005, L300.3900, L500.2500, L501.2450, L501.5200, L300.4310, L501.4021, L100.0100, L503.7505 ####[facility] [address] [place], [address] ALK PHOS 201 U/L High 40-129 [facility] [place] Comment on above: Performed By: #### L 500.3400, L503.6005, L300.3900, L500.2500, L501.2450, L501.5200, L300.4310, L501.4021, L100.0100, L503.7505 ####[facility] [address] [place], [place], [phone](950) ALT [Catalytic activity/Vol] 31 U/L Normal <=46 [facility] [place] Comment on above: Performed By: #### L 500.3400, L503.6005, L300.3900, L500.2500, L501.2450, L501.5200, L300.4310, L501.4021, L100.0100, L503.7505 ####[facility] [address] [place], [place], [phone] AST [Catalytic activity/Vol] 58 U/L High <=37 [facility] Comment on above: Performed By: #### L 500.3400, L503.6005, L300.3900, L500.2500, L501.2450, L501.5200, L300.4310, L501.4021, L100.0100, L503.7505 ####[facility] [address] [place], [address] Bilirubin [Mass/Vol] 1.91 mg/dL High 0.00-1.30 [facility] Comment on above: Performed By: #### L 500.3400, L503.6005, L300.3900, L500.2500, L501.2450, L501.5200, L300.4310, L501.4021, L100.0100, L503.7505 ####[facility] [address] [place], [address] Bilirubin.direct [Mass/Vol] 1.04 mg/dL High 0.00-0.30 [facility] Comment on above: Performed By: #### L 500.3400, L503.6005, L300.3900, L500.2500, L501.2450, L501.5200, L300.4310, L501.4021, L100.0100, L503.7505 ####[facility] [place] [address] [facility] [place], [address] Globulin (S) [Mass/Vol] 3.3 g/dL Normal 2.2-4.2 [facility] Comment on above: Performed By: #### L 500.3400, L503.6005, L300.3900, L500.2500, L501.2450, L501.5200, L300.4310, L501.4021, L100.0100, L503.7505 ####[facility] [address] [facility] [place], [address] T PROT 5.9 g/dL Normal 5.9-8.4 [facility] [place] Comment on above: Performed By: #### L 500.3400, L503.6005, L300.3900, L500.2500, L501.2450, L501.5200, L300.4310, L501.4021, L100.0100, L503.7505 ####[facility] [place] [address] [facility] [place], [address] M100.678on 01-28-2025 M100.678 SARS-CoV-2 (COVID 19 ) Negative INFLUENZA A Negative INFLUENZA B Negative RSV PCR Negative Normal [facility] Comment on above: Performed By: #### M 100.678 ####[facility] [address] [place], [place], [address] MCV (mean corpuscular volume ) determinationOrdered By: Danny Hutton on 01-28-2025 MCV (RBC) [Entitic vol] 89.4 fL 80-94 [facility] Magnesiumon 01-28-2025 Magnesium [Mass/Vol] 1.7 mg/dL Normal 1.5-2.2 [facility] Comment on above: Performed By: #### L 500.3400, L503.6005, L300.3900, L500.2500, L501.2450, L501.5200, L300.4310, L501.4021, L100.0100, L503.7505 ####[facility] [address] [place], [place], [address] Magnesium measurement (mass/ volume)Ordered By: Danny Hutton on 01-28-2025 Magnesium (Unsp spec) [Mass/Vol] 1.7 mg/dL 1.5-2.2 [facility] Mean corpuscular hemoglobin (MCH) determinationOrdered By: Danny Hutton on 01-28-2025 MCH (RBC) [Entitic mass] 29.4 pg 27.0-32.0 [facility] Monocyte percentageOrdered B y: Danny Hutton on 01-28-2025 Monocytes/100 WBC (Bld) 16.7 % High 0-10 [facility] Mucus LM Ql (Urine sed)Order ed By: Danny Hutton on 01-28-2025 Mucus Ql (Urine sed) 0 SEEN /hpf [facility] Natriuretic peptide.B prohor prachi N-Terminal [Mass/volume] in Serum or PlasmaOrdered By: Danny Hutton on 01-28-2025 Natriuretic peptide.B prohormone N-Terminal [Mass/Vol] 140 pg/mL <900 [facility] Neutrophil percentageOrdered By: Danny Hutton on 01-28-2025 Neutrophils/100 WBC (Bld) 57.8 % 47-70 [facility] Nitrite Test strip Ql (U)Ord ered By: Danny Hutton on 01-28-2025 Nitrite Ql (U) Negative Negative [facility] No Panel InformationOrdered By: Danny Hutton on 01-28-2025 58 U/L High <38 [facility] Partial Thromboplast Timeon 01-28-2025 aPTT Coag (Bld) [Time] 38.4 s High 24.1-36.2 [facility] Comment on above: Performed By: #### L 500.3400, L503.6005, L300.3900, L500.2500, L501.2450, L501.5200, L300.4310, L501.4021, L100.0100, L503.7505 ####[facility] [address] [place], [place], [phone] Platelet countOrdered By: Darin Hutton on 01-28-2025 Platelets (Bld) [#/Vol] 115 10*3/uL Low 150-450 [facility] Potassium measurement (mass/ volume)Ordered By: Danny Hutton on 01-28-2025 Potassium (Unsp spec) [Mass/Vol] 3.4 mmol/L 3.3-5.1 [facility] Protein Test strip Ql (U)Ord ered By: Danny Hutton on 01-28-2025 Protein Ql (U) 100 mg/dl High Negative [facility] Prothrombin Time w/INRon INR Coag (PPP) [Relative time] 1.7 {INR} Normal [facility] Comment on above: Performed By: #### L 500.3400, L503.6005, L300.3900, L500.2500, L501.2450, L501.5200, L300.4310, L501.4021, L100.0100, L503.7505 ####[facility] [address] [place], [address] PT Coag (PPP) [Time] 20.0 s High 11.7-14.9 [facility] Comment on above: Performed By: #### L 500.3400, L503.6005, L300.3900, L500.2500, L501.2450, L501.5200, L300.4310, L501.4021, L100.0100, L503.7505 ####[facility] [address] [place], [address] Prothrombin timeOrdered By: Danny Hutton on 01-28-2025 PT Coag (PPP) [Time] 20.0 s High 11.7-14.9 [facility] RBC Auto (Bld) [#/Vol]Ordere d By: Danny Hutton on 01-28-2025 RBC (Bld) [#/Vol] 2.82 10*6/uL Low 4.6-6.2 [facility] Serum creatinine measurement (mass/volume)Ordered By: Danny Hutton on 01-28-2025 Creatinine [Mass/Vol] 1.16 mg/dL 0.70-1.20 [facility] Serum globulin measurementOr dered By: Danny Hutton on 01-28-2025 Globulin (S) [Mass/Vol] 3.3 g/dL 2.2-4.2 [facility] Serum glucose measurement (m ass/volume)Ordered By: Danny Hutton on 01-28-2025 Glucose [Mass/Vol] 93 mg/dL 70-99 [facility] Serum or plasma alanine thomas otransferase (ALT) measurementOrdered By: Danny Hutton on 01-28-2025 ALT [Catalytic activity/Vol] 31 U/L <47 [facility] Serum or plasma albumin roosevelt urement (mass/volume)Ordered By: Danny Barker on 01-28-2025 Albumin [Mass/Vol] 2.5 g/dL Low 3.5-5.0 [facility] Serum or plasma alkaline kendrick sphatase measurementOrdered By: Danny Hutton on 01-28-2025 ALP [Catalytic activity/Vol] 201 U/L High 40-129 [facility] Serum or plasma calcium roosevelt urement (mass/volume)Ordered By: Danny Barker on 01-28-2025 Calcium [Mass/Vol] 8.9 mg/dL 7.6-11.0 [facility] Serum or plasma urea nitroge n measurement (mass/volume)Ordered By: Danny Hutton on 01-28-2025 Urea nitrogen [Mass/Vol] 15 mg/dL 4-19 [facility] Sodium levelOrdered By: Srinath Hutton on 01-28-2025 Sodium [Moles/Vol] 131 mmol/L Low 133-145 [facility] Squamous epithelial cells de tection in urine sediment by light microscopyOrdered By: Danny Hutton on 01-28-2025 Epithelial cells.squamous LM Ql (Urine sed) 0 SEEN /hpf 0-5 [facility] Total proteinOrdered By: Silvano Hutton on 01-28-2025 Protein [Mass/Vol] 5.9 g/dL 5.9-8.4 [facility] Troponin T.cardiac [Mass/vol ume] in Serum or Plasma by High sensitivity methodOrdered By: Danny Hutton on 01-28-2025 Troponin T.cardiac High sensitivity method [Mass/Vol] 13 ng/L <22 [facility] Urinalysis, Completeon 01-28 BACTERIA 1+ /hpf Normal None Seen [facility] Comment on above: Order Comment: COLOR OF URINE MAY AFFECT DIPSTICK RESULTS.JAMB CUTTER TO SPECIFY Performed By: #### L 400.0001 ####[facility] [address] [place], [place], [phone] RBC > 100 SEEN Normal 0-5 [facility] Comment on above: Order Comment: COLOR OF URINE MAY AFFECT DIPSTICK RESULTS.JAMB CUTTER TO SPECIFY Performed By: #### L 400.0001 ####[facility] [address] [place], [address] WBC 10-25 SEEN Normal 0-5 [facility] Comment on above: Order Comment: COLOR OF URINE MAY AFFECT DIPSTICK RESULTS.JAMB CUTTER TO SPECIFY Performed By: #### L 400.0001 ####[facility] [address] [place], [address] EPI,SQUAMOUS 0 SEEN Normal 0-5 [facility] Comment on above: Order Comment: COLOR OF URINE MAY AFFECT DIPSTICK RESULTS.JAMB CUTTER TO SPECIFY Performed By: #### L 400.0001 ####[facility] [address] [place], [address] Mucus Ql (Urine sed) 0 SEEN Normal [facility] Comment on above: Order Comment: COLOR OF URINE MAY AFFECT DIPSTICK RESULTS.JAMB CUTTER TO SPECIFY Performed By: #### L 400.0001 ####[facility] [address] [place], [address] Urine clarityOrdered By: Silvano Hutton on 01-28-2025 Clarity (U) Cloudy Clear [facility] Urine color determinationOrd ered By: Danny Hutton on 01-28-2025 Color (U) Lexis Yellow [facility] Urine cultureOrdered By: Silvano Hutton on 01-28-2025 Bacteria identified Cx Nom (U) Vancomycin Resist. E. faecalis Abnormal [facility] Bacteria identified Cx Nom (U) GNR lactose certified cytotechnologist Abnormal [facility] Urine glucose detectionOrder ed By: Danny Hutton on 01-28-2025 Glucose Ql (U) Normal mg/dl Normal [facility] Urine leukocyte esterase det ection by dipstickOrdered By: Danny Hutton on 01-28-2025 Leukocyte esterase Test strip Ql (U) 500 /ul High Negative [facility] Urine pHOrdered By: Danny Santiago on 01-28-2025 pH (U) 8.0 [pH] 5.0 - 8.0 [facility] Urine sediment bacteria coun t by microscopy (number/high power field)Ordered By: [facility] 01-28-2025 Bacteria LM.HPF (Urine sed) [#/Area] 1 /[HPF] None Seen [facility] Urine specific gravity measu rementOrdered By: [facility] on 01-28-2025 Specific gravity (U) [Rel density] 1.015 1.002-1.030 [facility] Urine urobilinogen measureme ntOrdered By: [facility] on 01-28-2025 Urobilinogen Ql (U) Normal mg/dl Normal [facility] Venous blood ammonia measure mentOrdered By: [facility] on 01-28-2025 Ammonia (P) [Moles/Vol] 108.0 umol/L High 16-60 [facility] White blood cell (WBC) count Ordered By: [facility] on 01-28-2025 WBC (Bld) [#/Vol] 5.2 10*3/uL 4.4-11.0 [facility] White blood cell countOrdere d By: [facility] on 01-28-2025 White blood cell count 10-25 SEEN /hpf 0-5 [facility] Body Fluid Cell Count+Diffon 01-25-2025 MESOTHELIAL 7 Normal [facility] Comment on above: Order Comment: The r eference range and other method performancespecifications have not been established for this bodyfluid. The test must be integrated into the clinicalcontext for interpretation. Result Comment: AMENDED REPORT 01/25/25 1125 OTHER CELL/BF previously reported as: 7 % Performed By: #### L 200.0200, L350.1000, M100.2900, M100.4001, M100.2000 ####[facility] [address] [place], [address] Culture, Anaerobic Any Sourc iliana 01-24-2025 CUAN No growth in 5 days. Normal [facility] Comment on above: Performed By: #### L 200.0200, L350.1000, M100.2900, M100.4001, M100.2000 ####[facility] [address] [place], [address] Anion gap in Serum or Plasma Ordered By: Anurag Irene on 01-21-2025 Anion gap [Moles/Vol] 7 mmol/L 5-15 [facility] BUN/creatinine ratioOrdered By: Anurag Irene on 01-21-2025 Urea nitrogen/Creatinine [Mass ratio] 15.6 mg/mg 10-20 [facility] Bedside Glucoseon 01-21-2025 FINGERSTICK GLU 151 mg/dL High 74-106 [facility] Comment on above: Result Comment: BRISA GEMENT OF PATIENT CARE PER NURSING PROTOCOL Performed By: #### L 501.080 ####[facility] [address] [place], [address] FINGERSTICK GLU 199 mg/dL High 74-106 [facility] Comment on above: Result Comment: BRISA GEMENT OF PATIENT CARE PER NURSING PROTOCOL Performed By: #### L 501.080 ####[facility] [address] [place], [address] Bilirubin, totalOrdered By: Anurag Ireen on 01-21-2025 Bilirubin [Mass/Vol] 1.52 mg/dL High 0.00-1.30 [facility] Carbon dioxide, total [Moles /volume] in Central venous bloodOrdered By: Anurag Irene on 01-21-2025 CO2 [Moles/Vol] 29.7 mmol/L 21.0-32.0 [facility] Chloride assayOrdered By: Francois Irene on 01-21-2025 Chloride [Moles/Vol] 96 mmol/L Low 98-108 [facility] Comprehensive Metabolic Prof ilon 01-21-2025 Albumin [Mass/Vol] 2.1 g/dL Low 3.5-5.0 [facility] Comment on above: Performed By: #### L 500.4050 ####[facility] [address] [place], [address] Albumin/Globulin [Mass ratio] 0.8 {ratio} Low 0.9-2.4 [facility] Comment on above: Performed By: #### L 500.4050 ####[facility] [address] [place], [address] ALK PHOS 204 U/L High 40-129 [facility] Comment on above: Performed By: #### L 500.4050 ####[facility] [address] [place], [address] ALT [Catalytic activity/Vol] 28 U/L Normal <=46 [facility] Comment on above: Performed By: #### L 500.4050 ####[facility] [address] [place], [address] AST [Catalytic activity/Vol] 48 U/L High <=37 [facility] Comment on above: Performed By: #### L 500.4050 ####[facility] [address] [place], [address] Bilirubin [Mass/Vol] 1.52 mg/dL High 0.00-1.30 [facility] Comment on above: Performed By: #### L 500.4050 ####[facility] [address] [place], [address] BUN/CRE 15.6 RATIO Normal 10-20 [facility] Comment on above: Performed By: #### L 500.4050 ####[facility] [address] [place], [address] Calcium [Mass/Vol] 8.1 mg/dL Normal 7.6-11.0 [facility] Comment on above: Performed By: #### L 500.4050 ####[facility] [address] [place], [address] Chloride [Moles/Vol] 96 mmol/L Low 98-108 [facility] Comment on above: Performed By: #### L 500.4050 ####[facility] [address] [place], [address] CO2 [Moles/Vol] 29.7 mmol/L Normal 21.0-32.0 [facility] Comment on above: Performed By: #### L 500.4050 ####[facility] [address] [place], [address] Creatinine [Mass/Vol] 0.86 mg/dL Normal 0.70-1.20 [facility] Comment on above: Performed By: #### L 500.4050 ####[facility] [address] [place], [address] ECRCL 114.50 ml/min Normal 50-250 [facility] Comment on above: Performed By: #### L 500.4050 ####[facility] [address] [place], [address] GAP 7 Normal 5-15 [facility] Comment on above: Performed By: #### L 500.4050 ####[facility] [address] [place], [address] GFR/1.73 sq M.predicted among non-blacks MDRD (S/P/Bld) [Vol rate/Area] 100 mL/min/{1.73_m2} Normal >60 [facility] Comment on above: Result Comment: mL/m in/1.73m2 CKD-EPI Creatinine Equation (2020) Performed By: #### L 500.4050 ####[facility] [address] [place], [address] Globulin (S) [Mass/Vol] 2.6 g/dL Normal 2.2-4.2 [facility] Comment on above: Performed By: #### L 500.4050 ####[facility] [address] [place], [address] Glucose [Mass/Vol] 199 mg/dL High 70-99 [facility] Comment on above: Performed By: #### L 500.4050 ####[facility] [address] [place], [address] Potassium [Moles/Vol] 3.1 mmol/L Low 3.3-5.1 [facility] Comment on above: Performed By: #### L 500.4050 ####[facility] [address] [place], [address] Sodium [Moles/Vol] 133 mmol/L Normal 133-145 [facility] Comment on above: Performed By: #### L 500.4050 ####[facility] [address] [place], [address] T PROT 4.7 g/dL Low 5.9-8.4 [facility] Comment on above: Performed By: #### L 500.4050 ####[facility] [address] [place], [address] Urea nitrogen [Mass/Vol] 13 mg/dL Normal 4-19 [facility] Comment on above: Performed By: #### L 500.4050 ####[facility] [address] [place], [address] Glomerular filtration rate ( GFR) estimation/1.73 sq m using serum, plasma, or whole bOrdered By: Anurag Irene on 01-21-2025 GFR/1.73 sq M.predicted among non-blacks MDRD (S/P/Bld) [Vol rate/Area] 100 mL/min/{1.73_m2} >60 [facility] deOrdered By: Anurag Irene on 01-21-2025 Glucose [Mass/Vol] 151 mg/dL High 74-106 [facility] No Panel InformationOrdered By: Anurag Irene on 01-21-2025 48 U/L High <38 [facility] Potassium measurement (mass/ volume)Ordered By: Anurag Irene on 01-21-2025 Potassium (Unsp spec) [Mass/Vol] 3.1 mmol/L Low 3.3-5.1 [facility] Serum creatinine measurement (mass/volume)Ordered By: Anurag Irene on 01-21-2025 Creatinine [Mass/Vol] 0.86 mg/dL 0.70-1.20 [facility] Serum globulin measurementOr dered By: Anurag Irene on 01-21-2025 Globulin (S) [Mass/Vol] 2.6 g/dL 2.2-4.2 [facility] Serum glucose measurement (m ass/volume)Ordered By: Anurag Irene on 01-21-2025 Glucose [Mass/Vol] 199 mg/dL High 70-99 [facility] Serum or plasma alanine thomas otransferase (ALT) measurementOrdered By: Anurag Irene on 01-21-2025 ALT [Catalytic activity/Vol] 28 U/L <47 [facility] Serum or plasma albumin roosevelt urement (mass/volume)Ordered By: Anurag Irene on 01-21-2025 Albumin [Mass/Vol] 2.1 g/dL Low 3.5-5.0 [facility] Serum or plasma albumin/glob ulin mass ratioOrdered By: Anurag Irene on 01-21-2025 Albumin/Globulin [Mass ratio] 0.8 {ratio} Low 0.9-2.4 [facility] Serum or plasma alkaline kendrick sphatase measurementOrdered By: Anurag Irene on 01-21-2025 ALP [Catalytic activity/Vol] 204 U/L High 40-129 [facility] Serum or plasma calcium roosevelt urement (mass/volume)Ordered By: Anurag Irene on 01-21-2025 Calcium [Mass/Vol] 8.1 mg/dL 7.6-11.0 [facility] Serum or plasma urea nitroge n measurement (mass/volume)Ordered By: Anurag Irene on 01-21-2025 Urea nitrogen [Mass/Vol] 13 mg/dL 4-19 [facility] Sodium levelOrdered By: Marni Irene on 01-21-2025 Sodium [Moles/Vol] 133 mmol/L 133-145 [facility] Total proteinOrdered By: [place] Irene on 01-21-2025 Protein [Mass/Vol] 4.7 g/dL Low 5.9-8.4 [facility] Absolute lymphocyte countOrd ered By: Anurag Irene on 01-20-2025 Lymphocytes Auto (Unsp spec) [#/Vol] 1.10 10*3/uL 0.83-4.51 [facility] Automated lymphocyte count a s percentage of total leukocytesOrdered By: Anurag Irene on 01-20-2025 Lymphocytes/100 WBC Auto (Unsp spec) 16.3 % Low 19-41 [facility] Basophil percentageOrdered B y: Anurag Irene on 01-20-2025 Basophils/100 WBC (Bld) 0.6 % 0-1 [facility] Bedside Glucoseon 01-20-2025 FINGERSTICK GLU 206 mg/dL High 74-106 [facility] Comment on above: Result Comment: BRISA GEMENT OF PATIENT CARE PER NURSING PROTOCOL Performed By: #### L 501.080 ####[facility] [address] [facility] [address] FINGERSTICK GLU 188 mg/dL High [address] [place] [address] Comment on above: Result Comment: BRISA GEMENT OF PATIENT CARE PER NURSING PROTOCOL Performed By: #### L 501.080 ####[facility] [address] [place], [address] FINGERSTICK GLU 167 mg/dL High [address] [place] [address] Comment on above: Result Comment: BRISA GEMENT OF PATIENT CARE PER NURSING PROTOCOL Performed By: #### L 501.080 ####[facility] [address] [place], [address] FINGERSTICK GLU 164 mg/dL High [facility]106 [facility] Comment on above: Result Comment: BRISA GEMENT OF PATIENT CARE PER NURSING PROTOCOL Performed By: #### L 501.080 ####[facility] [address] [facility] [address] Blood manual differential co mment interpretation (narrative result)Ordered By: Anurag Irene on 01-20-2025 Manual differential comment Marco Antonio (Bld) [Interp] SCANNED [facility] CBC W/Diff, Automatedon - PLT EST MOD DEC Normal ADEQ [facility] Comment on above: Performed By: #### L 100.0100 ####[facility] [address] [place], [address] SMEAR COMMENT SCANNED Normal [facility] Comment on above: Performed By: #### L 100.0100 ####[facility] [address] [place], [address] Comprehensive Metabolic Prof ilon 01-20-2025 Albumin [Mass/Vol] 2.0 g/dL Low 3.5-5.0 [facility] Comment on above: Performed By: #### L 500.4050 ####[facility] [address] [place], [address] Albumin/Globulin [Mass ratio] 0.7 {ratio} Low 0.9-2.4 [facility] Comment on above: Performed By: #### L 500.4050 ####[facility] [address] [place], [address] ALK PHOS 211 U/L High 40-129 [facility] Comment on above: Performed By: #### L 500.4050 ####[facility] [address] [place], [address] ALT [Catalytic activity/Vol] 32 U/L Normal <=46 [facility] Comment on above: Performed By: #### L 500.4050 ####[facility] [address] [place], [address] AST [Catalytic activity/Vol] 45 U/L High <=37 [facility] Comment on above: Performed By: #### L 500.4050 ####[facility] [address] [place], [address] Bilirubin [Mass/Vol] 1.61 mg/dL High 0.00-1.30 [facility] Comment on above: Performed By: #### L 500.4050 ####[facility] [address] [place], [address] BUN/CRE 13.4 RATIO Normal 10-20 [facility] Comment on above: Performed By: #### L 500.4050 ####[facility] [address] [place], [address] Calcium [Mass/Vol] 8.1 mg/dL Normal 7.6-11.0 [facility] Comment on above: Performed By: #### L 500.4050 ####[facility] [address] [place], [address] Chloride [Moles/Vol] 95 mmol/L Low 98-108 [facility] Comment on above: Performed By: #### L 500.4050 ####[facility] [address] [place], [address] CO2 [Moles/Vol] 30.3 mmol/L Normal 21.0-32.0 [facility] Comment on above: Performed By: #### L 500.4050 ####[facility] [address] [place], [address] Creatinine [Mass/Vol] 0.87 mg/dL Normal 0.70-1.20 [facility] Comment on above: Performed By: #### L 500.4050 ####[facility] [address] [place], [address] ECRCL 112.61 ml/min Normal 50-250 [facility] Comment on above: Performed By: #### L 500.4050 ####[facility] [address] [place], [address] GAP 7 Normal 5-15 [facility] Comment on above: Performed By: #### L 500.4050 ####[facility] [address] [place], [address] GFR/1.73 sq M.predicted among non-blacks MDRD (S/P/Bld) [Vol rate/Area] 100 mL/min/{1.73_m2} Normal >60 [facility] Comment on above: Result Comment: mL/m in/1.73m2 CKD-EPI Creatinine Equation (2020) Performed By: #### L 500.4050 ####[facility] [address] [place], [address] Globulin (S) [Mass/Vol] 2.9 g/dL Normal 2.2-4.2 [facility] Comment on above: Performed By: #### L 500.4050 ####[facility] [address] [place], [address] Glucose [Mass/Vol] 195 mg/dL High 70-99 [facility] Comment on above: Performed By: #### L 500.4050 ####[facility] [address] [place], [address] Potassium [Moles/Vol] 3.1 mmol/L Low 3.3-5.1 [facility] Comment on above: Performed By: #### L 500.4050 ####[facility] [address] [place], [address] Sodium [Moles/Vol] 133 mmol/L Normal 133-145 [facility] Comment on above: Performed By: #### L 500.4050 ####[facility] [address] [place], [address] T PROT 4.9 g/dL Low 5.9-8.4 [facility] Comment on above: Performed By: #### L 500.4050 ####[facility] [address] [place], [address] Urea nitrogen [Mass/Vol] 12 mg/dL Normal 4-19 [facility] Comment on above: Performed By: #### L 500.4057 ####[facility] [address] [place], [place], [address] Eosinophil percentageOrdered By: Anurag Irene on 01-20-2025 Eosinophils/100 WBC (Bld) 6.5 % High 0-5 [facility] Erythrocyte distribution wid th ratioOrdered By: Anurag Irene on 01-20-2025 Erythrocyte distribution width (RBC) [Ratio] 18.3 % High 11.6-14.6 [facility] Erythrocyte distribution wid th standard deviationOrdered By: Anurag Irene on 01-20-2025 Erythrocyte distribution width (RBC) [Ratio] 58.5 fl High 35.1-43.9 [facility] Hematocrit Auto (Bld) [Volum e fraction]Ordered By: Anurag Irene on 01-20-2025 Hematocrit (Bld) [Volume fraction] 22.9 % Low 40-54 [facility] Hemoglobin measurementOrdere d By: Anurag Irene on 01-20-2025 Hemoglobin (Bld) [Mass/Vol] 7.7 g/dL Low 13.0-16.5 [facility] Immature granulocytes/100 WB C Auto (Bld)Ordered By: Anurag Irene on 01-20-2025 Immature granulocytes/100 WBC (Bld) 1.200 % High 0.0-0.9 [facility] MCV (mean corpuscular volume ) determinationOrdered By: Anurag Irene on 01-20-2025 MCV (RBC) [Entitic vol] 88.1 fL 80-94 [facility] Mean corpuscular hemoglobin (MCH) determinationOrdered By: Anurag Irene on 01-20-2025 MCH (RBC) [Entitic mass] 29.6 pg 27.0-32.0 [facility] Monocyte percentageOrdered B y: Anurag Irene on 01-20-2025 Monocytes/100 WBC (Bld) 11.9 % High 0-10 [facility] Neutrophil percentageOrdered By: Anurag Irene on 01-20-2025 Neutrophils/100 WBC (Bld) 63.5 % 47-70 [facility] Platelet countOrdered By: Francois Irene on 01-20-2025 Platelets (Bld) [#/Vol] 93 10*3/uL Low 150-450 [facility] Platelet estimateOrdered By: Anurag Irene on 01-20-2025 Platelets LM Ql (Bld) MOD DEC ADEQ [facility] RBC Auto (Bld) [#/Vol]Ordere d By: Anurag Irene on 01-20-2025 RBC (Bld) [#/Vol] 2.60 10*6/uL Low 4.6-6.2 [facility] White blood cell (WBC) count Ordered By: Anurag Irene on 01-20-2025 WBC (Bld) [#/Vol] 6.8 10*3/uL 4.4-11.0 [facility] Activated partial thrombopla stin time (aPTT) in platelet poor plasma by coagulation aOrdered By: Rosendo Renee on 01-19-2025 aPTT Coag (PPP) [Time] 46.6 s High 24.1-36.2 [facility] Albumin, Serumon 01-19-2025 Albumin [Mass/Vol] 2.2 g/dL Low 3.5-5.0 [facility] Comment on above: Performed By: #### L 300.3900, L501.1800, L501.2300, L300.4310, L501.5200 ####[facility] [address] [place], [address] Bedside Glucoseon 01-19-2025 FINGERSTICK GLU 225 mg/dL High 74-106 [facility] Comment on above: Result Comment: BRISA GEMENT OF PATIENT CARE PER NURSING PROTOCOL Performed By: #### L 501.080 ####[facility] [address] [place], [address] FINGERSTICK GLU 268 mg/dL High 74-106 [facility] Comment on above: Result Comment: BRISA GEMENT OF PATIENT CARE PER NURSING PROTOCOL Performed By: #### L 501.080 ####[facility] [address] [place], [address] FINGERSTICK GLU 187 mg/dL High 74-106 [facility] Comment on above: Result Comment: BRISA GEMENT OF PATIENT CARE PER NURSING PROTOCOL Performed By: #### L 501.080 ####[facility] [address] [place], [address] FINGERSTICK GLU 198 mg/dL High 74-106 [facility] Comment on above: Result Comment: BRISA GEMENT OF PATIENT CARE PER NURSING PROTOCOL Performed By: #### L 501.080 ####[facility] [address] [place], [address] Bilirubin directOrdered By: Anurag Irene on 01-19-2025 Bilirubin.direct [Mass/Vol] 1.00 mg/dL High 0.00-0.30 [facility] Bilirubin, Directon 01-20-20 25 Bilirubin.direct [Mass/Vol] 1.00 mg/dL High 0.00-0.30 [facility] Comment on above: Performed By: #### L 501.4700, L100.0100, L500.4050 ####[facility] [address] [place], [address] Body Fluid Culton 01-19-2025 BFC Culture exhibits no growth. Normal [facility] Comment on above: Performed By: #### L 200.0200, L350.1000, M100.2900, M100.4001, M100.2000 ####[facility] [address] [place], [address] CBC W/Diff, Automatedon 01-02 Absolute Lymph 1.08 X10 3/uL Normal 0.83-4.51 [facility] Comment on above: Performed By: #### L 501.4700, L100.0100, L500.4050 ####[facility] [address] [place], [address] Absolute Neut 5.4 X10 3/uL Normal 2.0-7.7 [facility] Comment on above: Performed By: #### L 501.4700, L100.0100, L500.4050 ####[facility] [address], [address] Basophils/100 WBC (Bld) 0.5 % Normal 0-1 [facility] Comment on above: Performed By: #### L 501.4700, L100.0100, L500.4050 ####[facility] [address] [place], [address] Eosinophils/100 WBC (Bld) 5.8 % High 0-5 [facility] Comment on above: Performed By: #### L 501.4700, L100.0100, L500.4050 ####[facility] [address] [place], [address] Erythrocyte distribution width (RBC) [Ratio] 18.6 % High 11.6-14.6 [facility] Comment on above: Performed By: #### L 501.4700, L100.0100, L500.4050 ####[facility] [address] [place], [address] Hematocrit (Bld) [Volume fraction] 22.3 % Low 40-54 [facility] Comment on above: Performed By: #### L 501.4700, L100.0100, L500.4050 ####[facility] [address] [place], [address] Hemoglobin (Bld) [Mass/Vol] 7.6 g/dL Low 13.0-16.5 [facility] Comment on above: Performed By: #### L 501.4700, L100.0100, L500.4050 ####[facility] [address] [place], [address] IG% 1.400 High 0.0-0.9 [facility] Comment on above: Result Comment: IG% - Immature Granulocytes (promyelocytes, myelocytes andmetamyelocytes) > 1% indicates that a LEFT SHIFT is Present. Performed By: #### L 501.4700, L100.0100, L500.4050 ####[facility] [address] [place], [address] Lymphocytes/100 WBC (Bld) 13.6 % Low 19-41 [facility] Comment on above: Performed By: #### L 501.4700, L100.0100, L500.4050 ####[facility] [address] [place], [address] MCH (RBC) [Entitic mass] 30.3 pg Normal 27.0-32.0 [facility] Comment on above: Performed By: #### L 501.4700, L100.0100, L500.4050 ####[facility] [address] [place], [address] MCHC (RBC) [Mass/Vol] 34.1 g/dL Normal 32-36 [facility] Comment on above: Performed By: #### L 501.4700, L100.0100, L500.4050 ####[facility] [address] [place], [address] MCV (RBC) [Entitic vol] 88.8 fL Normal 80-94 [facility] Comment on above: Performed By: #### L 501.4700, L100.0100, L500.4050 ####[facility] [address] [place], [address] Monocytes/100 WBC (Bld) 11.0 % High 0-10 [facility] Comment on above: Performed By: #### L 501.4700, L100.0100, L500.4050 ####[facility] [address] [place], [address] Neutrophils/100 WBC (Bld) 67.7 % Normal 47-70 [facility] Comment on above: Performed By: #### L 501.4700, L100.0100, L500.4050 ####[facility] [address] [place], [address] Nucleated RBC (Bld) [#/Vol] 0 10*3/uL Normal 0-5 [facility] [place] Comment on above: Performed By: #### L 501.4700, L100.0100, L500.4050 ####[facility] [place] [address] [place], [address] Platelet mean volume (Bld) [Entitic vol] 11.1 fL Normal 6.2-12.0 [facility] Comment on above: Performed By: #### L 501.4700, L100.0100, L500.4050 ####[facility] [address] [place], [address] Platelets (Bld) [#/Vol] 107 10*3/uL Low 150-450 [facility] Comment on above: Performed By: #### L 501.4700, L100.0100, L500.4050 ####[facility] [address] [place], [address] RBC (Bld) [#/Vol] 2.51 10*6/uL Low 4.6-6.2 [facility] Comment on above: Performed By: #### L 501.4700, L100.0100, L500.4050 ####[facility] [address] [place], [address] RDW SD 59.0 fl High 35.1-43.9 [facility] Comment on above: Performed By: #### L 501.4700, L100.0100, L500.4050 ####[facility] [address] [place], [address] WBC (Bld) [#/Vol] 7.9 10*3/uL Normal 4.4-11.0 [facility] Comment on above: Performed By: #### L 501.4700, L100.0100, L500.4050 ####[facility] [address] [place], [address] Comprehensive Metabolic Prof ilon 01-19-2025 Albumin [Mass/Vol] 2.2 g/dL Low 3.5-5.0 [facility] Comment on above: Performed By: #### L 501.4700, L100.0100, L500.4050 ####[facility] [address] [place], [address] Albumin/Globulin [Mass ratio] 0.9 {ratio} Normal 0.9-2.4 [facility] Comment on above: Performed By: #### L 501.4700, L100.0100, L500.4050 ####[facility] [address] [place], [address] ALK PHOS 225 U/L High 40-129 [facility] Comment on above: Performed By: #### L 501.4700, L100.0100, L500.4050 ####[facility] [address] [place], [address] ALT [Catalytic activity/Vol] 34 U/L Normal <=46 [facility] Comment on above: Performed By: #### L 501.4700, L100.0100, L500.4050 ####[facility] [address] [place], [address] AST [Catalytic activity/Vol] 52 U/L High <=37 [facility] Comment on above: Performed By: #### L 501.4700, L100.0100, L500.4050 ####[facility] [place] [address] [place], [address] Bilirubin [Mass/Vol] 1.70 mg/dL High 0.00-1.30 [facility] Comment on above: Performed By: #### L 501.4700, L100.0100, L500.4050 ####[facility] [address] [place], [address] BUN/CRE 10.4 RATIO Normal 10-20 [facility] Comment on above: Performed By: #### L 501.4700, L100.0100, L500.4050 ####[facility] [place] [address] [place], [address] Calcium [Mass/Vol] 7.9 mg/dL Normal 7.6-11.0 [facility] Comment on above: Performed By: #### L 501.4700, L100.0100, L500.4050 ####[facility] [address] [place], [address] Chloride [Moles/Vol] 94 mmol/L Low 98-108 [facility] Comment on above: Performed By: #### L 501.4700, L100.0100, L500.4050 ####[facility] [address] [place], [address] CO2 [Moles/Vol] 30.7 mmol/L Normal 21.0-32.0 [facility] Comment on above: Performed By: #### L 501.4700, L100.0100, L500.4050 ####[facility] [address] [place], [address] Creatinine [Mass/Vol] 1.05 mg/dL Normal 0.70-1.20 [facility] Comment on above: Performed By: #### L 501.4700, L100.0100, L500.4050 ####[facility] [address] [place], [address] ECRCL 93.35 ml/min Normal 50-250 [facility] Comment on above: Performed By: #### L 501.4700, L100.0100, L500.4050 ####[facility] [address] [place], [address] GAP 7 Normal 5-15 [facility] Comment on above: Performed By: #### L 501.4700, L100.0100, L500.4050 ####[facility] [address] [place], [address] GFR/1.73 sq M.predicted among non-blacks MDRD (S/P/Bld) [Vol rate/Area] 82 mL/min/{1.73_m2} Normal >60 [facility] Comment on above: Result Comment: mL/m in/1.73m2 CKD-EPI Creatinine Equation (2020) Performed By: #### L 501.4700, L100.0100, L500.4050 ####[facility] [address] [place], [address] Globulin (S) [Mass/Vol] 2.6 g/dL Normal 2.2-4.2 [facility] Comment on above: Performed By: #### L 501.4700, L100.0100, L500.4050 ####[facility] [address] [place], [address] Glucose [Mass/Vol] 220 mg/dL High 70-99 [facility] Comment on above: Performed By: #### L 501.4700, L100.0100, L500.4050 ####[facility] [address] [place], [address] Potassium [Moles/Vol] 3.0 mmol/L Low 3.3-5.1 [facility] Comment on above: Performed By: #### L 501.4700, L100.0100, L500.4050 ####[facility] [address] [place], [address] Sodium [Moles/Vol] 132 mmol/L Low 133-145 [facility] Comment on above: Performed By: #### L 501.4700, L100.0100, L500.4050 ####[facility] [address] [place], [address] T PROT 4.8 g/dL Low 5.9-8.4 [facility] Comment on above: Performed By: #### L 501.4700, L100.0100, L500.4050 ####[facility] [address] [place], [address] Urea nitrogen [Mass/Vol] 11 mg/dL Normal 4-19 [facility] Comment on above: Performed By: #### L 501.4700, L100.0100, L500.4050 ####[facility] [address] [place], [address] Gram Stainon 01-19-2025 GS Centrifuged Specimen ? Culture performed on centrifuged specimen Gram Stain No organisms seen No cells seen Normal [facility] Comment on above: Performed By: #### L 200.0200, L350.1000, M100.2900, M100.4001, M100.2000 ####[facility] [address] [place], [address] Liver Profileon 01-19-2025 ALB Normal 3.5-5.0 [facility] Comment on above: Result Comment: MOVE D TO DIFFERENT REQ- SEE C50 Performed By: #### L 500.3400 ####[facility] [address] [place], [address] ALK PHOS Normal 40-129 [facility] Comment on above: Result Comment: MOVE D TO DIFFERENT REQ- SEE C50 Performed By: #### L 500.3400 ####[facility] [address] [place], [address] ALT Normal <=46 [facility] Comment on above: Result Comment: MOVE D TO DIFFERENT REQ- SEE C50 Performed By: #### L 500.3400 ####[facility] [address] [place], [address] AST Normal <=37 [facility] Comment on above: Result Comment: MOVE D TO DIFFERENT REQ- SEE C50 Performed By: #### L 500.3400 ####[facility] [address] [place], [address] D BILI Normal 0.00-0.30 [facility] Comment on above: Result Comment: MOVE D TO DIFFERENT REQ- SEE C50 Performed By: #### L 500.3400 ####[facility] [address] [place], [address] T BILI Normal 0.00-1.30 [facility] Comment on above: Result Comment: MOVE D TO DIFFERENT REQ- SEE C50 Performed By: #### L 500.3400 ####[facility] [address] [place], [address] T PROT Normal 5.9-8.4 [facility] Comment on above: Result Comment: MOVE D TO DIFFERENT REQ- SEE C50 Performed By: #### L 500.3400 ####[facility] [address] [place], [address] Magnesiumon 01-19-2025 Magnesium [Mass/Vol] 1.7 mg/dL Normal 1.5-2.2 [facility] Comment on above: Performed By: #### L 300.3900, L501.1800, L501.2300, L300.4310, L501.5200 ####[facility] [address] [place], [address] Magnesium measurement (mass/ volume)Ordered By: Rosendo Renee on 01-19-2025 Magnesium (Unsp spec) [Mass/Vol] 1.7 mg/dL 1.5-2.2 [facility] Partial Thromboplast Timeon 01-19-2025 aPTT Coag (Bld) [Time] 46.6 s High 24.1-36.2 [facility] Comment on above: Performed By: #### L 300.3900, L501.1800, L501.2300, L300.4310, L501.5200 ####[facility] [address] [place], [address] Phosphoruson 01-19-2025 Phosphate [Mass/Vol] 3.5 mg/dL Normal 2.7-4.5 [facility] Comment on above: Performed By: #### L 300.3900, L501.1800, L501.2300, L300.4310, L501.5200 ####[facility] [address] [place], [address] Prothrombin Time w/INRon INR Coag (PPP) [Relative time] 2.0 {INR} Normal [facility] Comment on above: Performed By: #### L 300.3900, L501.1800, L501.2300, L300.4310, L501.5200 ####[facility] [address] [place], [address] PT Coag (PPP) [Time] 22.8 s High 11.7-14.9 [facility] Comment on above: Performed By: #### L 300.3900, L501.1800, L501.2300, L300.4310, L501.5200 ####[facility] [address] [place], [address] Prothrombin timeOrdered By: Rosendo Renee on 01-19-2025 PT Coag (PPP) [Time] 22.8 s High 11.7-14.9 [facility] Abdomen Limitedon 01-18-2025 Abdomen Limited Normal [facility] Anaerobic cultureOrdered By: Anurag Irene on 01-18-2025 Bacteria identified Anaer cx Nom (Unsp spec) No growth in 5 days. [facility] Basic Metabolic Profile (BMP )on 01-18-2025 BUN/CRE 9.8 RATIO Low 10-20 [facility] Comment on above: Performed By: #### L 500.2500 ####[facility] [address] [place], [address] Calcium [Mass/Vol] 7.7 mg/dL Normal 7.6-11.0 [facility] Comment on above: Performed By: #### L 500.2500 ####[facility] [address] [place], [address] Chloride [Moles/Vol] 92 mmol/L Low 98-108 [facility] Comment on above: Performed By: #### L 500.2500 ####[facility] [address] [place], [address] CO2 [Moles/Vol] 31.5 mmol/L Normal 21.0-32.0 [facility] Comment on above: Performed By: #### L 500.2500 ####[facility] [address] [place], [address] Creatinine [Mass/Vol] 0.85 mg/dL Normal 0.70-1.20 [facility] Comment on above: Performed By: #### L 500.2500 ####[facility] [address] [place], [address] ECRCL 116.49 ml/min Normal 50-250 [facility] Comment on above: Performed By: #### L 500.2500 ####[facility] [address] [place], [address] GAP 8 Normal 5-15 [facility] Comment on above: Performed By: #### L 500.2500 ####[facility] [address] [place], [address] GFR/1.73 sq M.predicted among non-blacks MDRD (S/P/Bld) [Vol rate/Area] 101 mL/min/{1.73_m2} Normal >60 [facility] Comment on above: Result Comment: mL/m in/1.73m2 CKD-EPI Creatinine Equation (2020) Performed By: #### L 500.2500 ####[facility] [address] [place], [address] Glucose [Mass/Vol] 228 mg/dL High 70-99 [facility] Comment on above: Performed By: #### L 500.2500 ####[facility] [address] [place], [address] Potassium [Moles/Vol] 2.8 mmol/L Low 3.3-5.1 [facility] Comment on above: Performed By: #### L 500.2500 ####[facility] [address] [place], [address] Sodium [Moles/Vol] 132 mmol/L Low 133-145 [facility] Comment on above: Performed By: #### L 500.2500 ####[facility] [address] [place], [address] Urea nitrogen [Mass/Vol] 8 mg/dL Normal 4-19 [facility] Comment on above: Performed By: #### L 500.2500 ####[facility] [address] [place], [address] Bedside Glucoseon 01-18-2025 FINGERSTICK GLU 250 mg/dL High 74-106 [facility] Comment on above: Result Comment: BRISA GEMENT OF PATIENT CARE PER NURSING PROTOCOL Performed By: #### L 501.080 ####[facility] [address] [place], [address] FINGERSTICK GLU 158 mg/dL High 74-106 [facility] Comment on above: Result Comment: BRISA GEMENT OF PATIENT CARE PER NURSING PROTOCOL Performed By: #### L 501.080 ####[facility] [address] [place], [address] FINGERSTICK GLU 142 mg/dL High 74-106 [facility] Comment on above: Result Comment: BRISA GEMENT OF PATIENT CARE PER NURSING PROTOCOL Performed By: #### L 501.080 ####[facility] [address] [place], [address] FINGERSTICK GLU 171 mg/dL High 74-106 [facility] Comment on above: Result Comment: BRISA GEMENT OF PATIENT CARE PER NURSING PROTOCOL Performed By: #### L 501.080 ####[facility] [address] [place], [address] Body fluid appearance (nomin al result)Ordered By: Anurag Irene on 01-18-2025 Appearance (Body fld) CLEAR [facility] Body fluid color determinati onOrdered By: Anurag Irene on 01-18-2025 Color (Body fld) LT YEL [facility] Body fluid cultureOrdered By : Anurag Irene on 01-18-2025 Microbial culture, body fluid Culture exhibits no growth. [facility] Body fluid leukocytes count (number/volume)Ordered By: Anurag Irene on 01-18-2025 WBC (Body fld) [#/Vol] 0.143 10*3/uL [facility] Body fluid lymphocytes/100 l eukocytesOrdered By: Anurag Irene on 01-18-2025 Lymphocytes/100 WBC (Body fld) 24 % [facility] Body fluid macrophage countO rdered By: Anurag Irene on 01-18-2025 Macrophages (Body fld) [#/Vol] 46 % [facility] Body fluid mesothelial cell percentageOrdered By: Anurag Irene on 01-18-2025 Mesothelial cells/100 WBC (Body fld) 7 % [facility] Body fluid mononuclear cell percentageOrdered By: Anurag Irene on 01-18-2025 Mononuclear cells/100 WBC (Body fld) 75.6 % [facility] Body fluid other cell count as percentage of leukocytesOrdered By: Anurag Irene on 01-18-2025 Other cells/100 WBC (Body fld) 7 % [facility] Other cells/100 WBC (Body fld) DIRECTOR OF ARCHITECTURE [facility] Body fluid protein measureme nt (mass/volume)Ordered By: Anurag Irnee on 01-18-2025 Protein (Body fld) [Mass/Vol] 0.3 g/dL Not Establ. [facility] Body fluid segmented neutrop hils count (number/volume)Ordered By: Anurag Irene on 01-18-2025 Segmented neutrophils (Body fld) [#/Vol] 20 % [facility] Body fluid total cell countO rdered By: Anurag Irene on 01-18-2025 Cells Counted Total (Body fld) [#] 0.172 10^3/ul [facility] CBC W/Diff, Automatedon 01-02 Absolute Lymph 1.13 X10 3/uL Normal 0.83-4.51 [facility] Comment on above: Performed By: #### L 100.0100 ####[facility] [address] [place], [address] Absolute Neut 5.5 X10 3/uL Normal 2.0-7.7 [facility] Comment on above: Performed By: #### L 100.0100 ####[facility] [address] [place], [address] Basophils/100 WBC (Bld) 0.6 % Normal 0-1 [facility] Comment on above: Performed By: #### L 100.0100 ####[facility] [address] [place], [address] Eosinophils/100 WBC (Bld) 6.1 % High 0-5 [facility] Comment on above: Performed By: #### L 100.0100 ####[facility] [address] [place], [address] Erythrocyte distribution width (RBC) [Ratio] 18.7 % High 11.6-14.6 [facility] Comment on above: Performed By: #### L 100.0100 ####[facility] [address] [place], [address] Hematocrit (Bld) [Volume fraction] 22.6 % Low 40-54 [facility] Comment on above: Performed By: #### L 100.0100 ####[facility] [address] [place], [address] Hemoglobin (Bld) [Mass/Vol] 7.7 g/dL Low 13.0-16.5 [facility] Comment on above: Performed By: #### L 100.0100 ####[facility] [address] [place], [address] IG% 1.200 High 0.0-0.9 [facility] Comment on above: Result Comment: IG% - Immature Granulocytes (promyelocytes, myelocytes andmetamyelocytes) > 1% indicates that a LEFT SHIFT is Present. Performed By: #### L 100.0100 ####[facility] [address] [place], [address] Lymphocytes/100 WBC (Bld) 14.0 % Low 19-41 [facility] Comment on above: Performed By: #### L 100.0100 ####[facility] [address] [place], [address] MCH (RBC) [Entitic mass] 30.1 pg Normal 27.0-32.0 [facility] Comment on above: Performed By: #### L 100.0100 ####[facility] [address] [place], [address] MCHC (RBC) [Mass/Vol] 34.1 g/dL Normal 32-36 [facility] Comment on above: Performed By: #### L 100.0100 ####[facility] [address] [place], [address] MCV (RBC) [Entitic vol] 88.3 fL Normal 80-94 [facility] Comment on above: Performed By: #### L 100.0100 ####[facility] [address] [place], [address] Monocytes/100 WBC (Bld) 10.0 % Normal 0-10 [facility] Comment on above: Performed By: #### L 100.0100 ####[facility] [address] [place], [address] Neutrophils/100 WBC (Bld) 68.1 % Normal 47-70 [facility] Comment on above: Performed By: #### L 100.0100 ####[facility] [address] [place], [address] Nucleated RBC (Bld) [#/Vol] 0 10*3/uL Normal 0-5 [facility] Comment on above: Performed By: #### L 100.0100 ####[facility] [address] [place], [address] Platelet mean volume (Bld) [Entitic vol] 10.5 fL Normal 6.2-12.0 [facility] Comment on above: Performed By: #### L 100.0100 ####[facility] [address] [place], [address] Platelets (Bld) [#/Vol] 107 10*3/uL Low 150-450 [facility] Comment on above: Performed By: #### L 100.0100 ####[facility] [facility] [place] [address] [place], [address] RBC (Bld) [#/Vol] 2.56 10*6/uL Low 4.6-6.2 [facility] Comment on above: Performed By: #### L 100.0100 ####[facility] [place] [address] [place], [address] RDW SD 58.9 fl High 35.1-43.9 [facility] [place] Comment on above: Performed By: #### L 100.0100 ####[facility] [place] [address] [place], [address] WBC (Bld) [#/Vol] 8.1 10*3/uL Normal 4.4-11.0 [facility] Comment on above: Performed By: #### L 100.0100 ####[facility] [place] [address] [place], [address] Cytology report of Body flui d Cyto stainOrdered By: Anurag Irene on 01-18-2025 Cytology report Cyto stain Doc (Body fld) SEE PATHOLOGY REPORT [facility] Cytology, Body Fluid / CSFon 01-18-2025 CYTOLOGY,BF/CSF SEE PATHOLOGY REPORT Normal [facility] [place] Comment on above: Result Comment: Spec imen submitted to Anatomical Pathology Department fortesting. Performed By: #### L 200.0200, L350.1000, M100.2900, M100.4001, M100.2000 ####[facility] [place] [address] [place], [address] Glucose, Body Fluidon 2024 GLUC, BODY FLD 154 mg/dL Normal Not Establ. [facility] [place] Comment on above: Performed By: #### L 503.0100, L503.0300 ####[facility] [place] [address] [place], [address] Gram stainOrdered By: Anuradha Irene on 01-18-2025 Microscopic observation Gram stain Nom (Unsp spec) [facility] [place] Magnesiumon 01-18-2025 Magnesium [Mass/Vol] 1.6 mg/dL Normal 1.5-2.2 [facility] Comment on above: Performed By: #### L 501.2300, L501.5200 ####[facility] [place] [address] [place], [address] Monocyte detectionOrdered By : Anurag Irene on 01-18-2025 Monocytes/100 WBC (Bld) 3 % [facility] No Panel InformationOrdered By: Anurag Irene on 01-18-2025 218 /mm3 [facility] [place] SEE COMMENT [facility] [place] Paracentesis with USon 01-18 Paracentesis with US Normal [facility] Pathologist interpretation o f Body fluid testsOrdered By: Anurag Irene on 01-18-2025 Pathologist interpretation (Body fld) [Interp] Reviewed [facility] [place] Phosphoruson 01-18-2025 Phosphate [Mass/Vol] 3.7 mg/dL Normal 2.7-4.5 [facility] Comment on above: Performed By: #### L 501.2300, L501.5200 ####[facility] [place] [address] [place], [address] Protein, Body Fluidon 2024 Protein [Mass/Vol] 0.3 g/dL Normal Not Establ. [facility] Comment on above: Performed By: #### L 503.0100, L503.0300 ####[facility] [place] [address] [place], [address] Prothrombin Time w/INRon INR Coag (PPP) [Relative time] 2.0 {INR} Normal [facility] [place] Comment on above: Performed By: #### L 300.3900 ####[facility] [place] [address] [place], [address] PT Coag (PPP) [Time] 22.9 s High 11.7-14.9 [facility] Comment on above: Performed By: #### L 300.3900 ####[facility] [place] [address] [place], [address] Special Stain Group IIon Special Stain Group II Normal [facility] Comment on above: Performed By: #### P SSII ####[facility] [place] [address] [place], [address] Specimen source identificati on of body fluidOrdered By: Anurag Irene on 01-18-2025 Specimen source Nom (Body fld) PERITONEAL FLUID [facility] [place] Stool Occult Blood iFOBon STOB Negative Normal [facility] [place] Comment on above: Performed By: #### M 100.7900 ####[facility] [place] [address] [place], [address] Stool gastrointestinal hemog lobin detection by immunologic methodOrdered By: Cielo Tovar on 01-18-2025 Lower GI hemoglobin IA Ql (Stl) [facility] [place] Bedside Glucoseon 01-17-2025 FINGERSTICK GLU 180 mg/dL High [facility]106 [facility] [place] Comment on above: Result Comment: BRISA GEMENT OF PATIENT CARE PER NURSING PROTOCOL Performed By: #### L 501.080 ####[facility] [place] [address] [facility] [address] FINGERSTICK GLU 236 mg/dL High [address] [place] [address] Comment on above: Result Comment: BRISA GEMENT OF PATIENT CARE PER NURSING PROTOCOL Performed By: #### L 501.080 ####[facility] [place] [address] [place], [address] FINGERSTICK GLU 141 mg/dL High [address] [place] [address] Comment on above: Result Comment: BRISA GEMENT OF PATIENT CARE PER NURSING PROTOCOL Performed By: #### L 501.080 ####[facility] [place] [address] [facility] [address] FINGERSTICK GLU 173 mg/dL High [address] [place] [address] Comment on above: Result Comment: BRISA GEMENT OF PATIENT CARE PER NURSING PROTOCOL Performed By: #### L 501.080 ####[facility] [place] [address] [place], [address] CBC W/Diff, Automatedon 01-02 Absolute Lymph 1.09 X10 3/uL Normal 0.83-4.51 [facility] [place] Comment on above: Performed By: #### L 100.0100 ####[facility] [place] [address] [place], [address] Absolute Neut 5.7 X10 3/uL Normal 2.0-7.7 [facility] [place] Comment on above: Performed By: #### L 100.0100 ####[facility] [place] [address] [place], [address] Basophils/100 WBC (Bld) 0.5 % Normal 0-1 [facility] Comment on above: Performed By: #### L 100.0100 ####[facility] [place] [address] [place], [address] Eosinophils/100 WBC (Bld) 6.8 % High 0-5 [facility] [place] Comment on above: Performed By: #### L 100.0100 ####[facility] [place] [address] [place], [address] Erythrocyte distribution width (RBC) [Ratio] 18.8 % High 11.6-14.6 [facility] [place] Comment on above: Performed By: #### L 100.0100 ####[facility] [place] [address] [place], [address] Hematocrit (Bld) [Volume fraction] 22.2 % Low 40-54 [facility] [place] Comment on above: Performed By: #### L 100.0100 ####[facility] [place] [address] [place], [address] Hemoglobin (Bld) [Mass/Vol] 7.5 g/dL Low 13.0-16.5 [facility] [place] Comment on above: Performed By: #### L 100.0100 ####[facility] [place] [address] [place], [address] IG% 1.100 High 0.0-0.9 [facility] [place] Comment on above: Result Comment: IG% - Immature Granulocytes (promyelocytes, myelocytes andmetamyelocytes) > 1% indicates that a LEFT SHIFT is Present. Performed By: #### L 100.0100 ####[facility] [place] [address] [place], [address] Lymphocytes/100 WBC (Bld) 12.9 % Low 19-41 [facility] [place] Comment on above: Performed By: #### L 100.0100 ####[facility] [place] [address] [place], [address] MCH (RBC) [Entitic mass] 30.0 pg Normal 27.0-32.0 [facility] [place] Comment on above: Performed By: #### L 100.0100 ####[facility] [place] [address] [place], [address] MCHC (RBC) [Mass/Vol] 33.8 g/dL Normal 32-36 [facility] Comment on above: Performed By: #### L 100.0100 ####[facility] [place] [address] [place], [address] MCV (RBC) [Entitic vol] 88.8 fL Normal 80-94 [facility] Comment on above: Performed By: #### L 100.0100 ####[facility] [place] [address] [place], [address] Monocytes/100 WBC (Bld) 11.5 % High 0-10 [facility] Comment on above: Performed By: #### L 100.0100 ####[facility] [place] [address] [place], [address] Neutrophils/100 WBC (Bld) 67.2 % Normal 47-70 [facility] [place] Comment on above: Performed By: #### L 100.0100 ####[facility] [place] [address] [place], [address] Nucleated RBC (Bld) [#/Vol] 0 10*3/uL Normal 0-5 [facility] [place] Comment on above: Performed By: #### L 100.0100 ####[facility] [place] [address] [place], [address] Platelet mean volume (Bld) [Entitic vol] 10.7 fL Normal 6.2-12.0 [facility] [place] Comment on above: Performed By: #### L 100.0100 ####[facility] [place] [address] [place], [address] Platelets (Bld) [#/Vol] 109 10*3/uL Low 150-450 [facility] [place] Comment on above: Performed By: #### L 100.0100 ####[facility] [place] [address] [place], [address] RBC (Bld) [#/Vol] 2.50 10*6/uL Low 4.6-6.2 [facility] Comment on above: Performed By: #### L 100.0100 ####[facility] [place] [address] [place], [address] RDW SD 58.8 fl High 35.1-43.9 [facility] [place] Comment on above: Performed By: #### L 100.0100 ####[facility] [place] [address] [place], [address] WBC (Bld) [#/Vol] 8.4 10*3/uL Normal 4.4-11.0 [facility] Comment on above: Performed By: #### L 100.0100 ####[facility] [place] [address] [place], [address] Bedside Glucoseon 01-16-2025 FINGERSTICK GLU 227 mg/dL High 74-106 [facility] [place] Comment on above: Result Comment: BRISA MOROCHO OF PATIENT CARE PER NURSING PROTOCOL Performed By: #### L 501.080 ####[facility] [place] [address] [place], [address] FINGERSTICK GLU 202 mg/dL High 74-106 [facility] [place] Comment on above: Result Comment: BRISA GEMENT OF PATIENT CARE PER NURSING PROTOCOL Performed By: #### L 501.080 ####[facility] [place] [address], [address] FINGERSTICK GLU 177 mg/dL High 74-106 [facility] [place] Comment on above: Result Comment: BRISA GEMENT OF PATIENT CARE PER NURSING PROTOCOL Performed By: #### L 501.080 ####[facility] [place] [address] [place], [address] FINGERSTICK GLU 173 mg/dL High 74-106 [facility] [place] Comment on above: Result Comment: BRISA GEMENT OF PATIENT CARE PER NURSING PROTOCOL Performed By: #### L 501.080 ####[facility] [place] [address] [place], [address] CBC W/Diff, Automatedon 06-1 5-2025 Absolute Lymph 1.16 X10 3/uL Normal 0.83-4.51 [facility] [place] Comment on above: Performed By: #### L 100.0100 ####[facility] [place] [address] [place], [address] Absolute Neut 5.2 X10 3/uL Normal 2.0-7.7 [facility] [place] Comment on above: Performed By: #### L 100.0100 ####[facility] [place] [address] [place], [address] Basophils/100 WBC (Bld) 0.4 % Normal 0-1 [facility] Comment on above: Performed By: #### L 100.0100 ####[facility] [address] [place], [address] Eosinophils/100 WBC (Bld) 6.5 % High 0-5 [facility] Comment on above: Performed By: #### L 100.0100 ####[facility] [place] [address] [place], [address] Erythrocyte distribution width (RBC) [Ratio] 18.5 % High 11.6-14.6 [facility] [place] Comment on above: Performed By: #### L 100.0100 ####[facility] [place] [address] [place], [address] Hematocrit (Bld) [Volume fraction] 22.8 % Low 40-54 [facility] [place] Comment on above: Performed By: #### L 100.0100 ####[facility] [place] [address] [place], [address] Hemoglobin (Bld) [Mass/Vol] 7.8 g/dL Low 13.0-16.5 [facility] [place] Comment on above: Performed By: #### L 100.0100 ####[facility] [place] [address] [place], [address] IG% 0.900 Normal 0.0-0.9 [facility] Comment on above: Result Comment: IG% - Immature Granulocytes (promyelocytes, myelocytes andmetamyelocytes) > 1% indicates that a LEFT SHIFT is Present. Performed By: #### L 100.0100 ####[facility] [place] [address] [place], [address] Lymphocytes/100 WBC (Bld) 14.6 % Low 19-41 [facility] Comment on above: Performed By: #### L 100.0100 ####[facility] [place] [address] [place], [address] MCH (RBC) [Entitic mass] 30.2 pg Normal 27.0-32.0 [facility] [place] Comment on above: Performed By: #### L 100.0100 ####[facility] [place] [address] [place], [address] MCHC (RBC) [Mass/Vol] 34.2 g/dL Normal 32-36 [facility] Comment on above: Performed By: #### L 100.0100 ####[facility] [place] [address] [place], [address] MCV (RBC) [Entitic vol] 88.4 fL Normal 80-94 [facility] Comment on above: Performed By: #### L 100.0100 ####[facility] [place] [address] [place], [address] Monocytes/100 WBC (Bld) 12.7 % High 0-10 [facility] Comment on above: Performed By: #### L 100.0100 ####[facility] [place] [address] [place], [address] Neutrophils/100 WBC (Bld) 64.9 % Normal 47-70 [facility] [place] Comment on above: Performed By: #### L 100.0100 ####[facility] [place] [address] [place], [address] Nucleated RBC (Bld) [#/Vol] 0 10*3/uL Normal 0-5 [facility] [place] Comment on above: Performed By: #### L 100.0100 ####[facility] [place] [address] [place], [address] Platelet mean volume (Bld) [Entitic vol] 10.8 fL Normal 6.2-12.0 [facility] [place] Comment on above: Performed By: #### L 100.0100 ####[facility] [place] [address] [place], [address] Platelets (Bld) [#/Vol] 111 10*3/uL Low 150-450 [facility] [place] Comment on above: Performed By: #### L 100.0100 ####[facility] [place] [address] [place], [address] RBC (Bld) [#/Vol] 2.58 10*6/uL Low 4.6-6.2 [facility] Comment on above: Performed By: #### L 100.0100 ####[facility] [place] [address] [place], [address] RDW SD 57.9 fl High 35.1-43.9 [facility] [place] Comment on above: Performed By: #### L 100.0100 ####[facility] [place] [address] [place], [address] WBC (Bld) [#/Vol] 7.9 10*3/uL Normal 4.4-11.0 [facility] Comment on above: Performed By: #### L 100.0100 ####[facility] [place] [address] [place], [address] Comprehensive Metabolic Prof ilon 01-16-2025 Albumin [Mass/Vol] 2.2 g/dL Low 3.5-5.0 [facility] Comment on above: Performed By: #### L 500.4050 ####[facility] [place] [address] [place], [address] Albumin/Globulin [Mass ratio] 0.9 {ratio} Normal 0.9-2.4 [facility] [place] Comment on above: Performed By: #### L 500.4050 ####[facility] [place] [address] [place], [address] ALK PHOS 247 U/L High 40-129 [facility] [place] Comment on above: Performed By: #### L 500.4050 ####[facility] [place] [address] [place], [address] ALT [Catalytic activity/Vol] 49 U/L High <=46 [facility] Comment on above: Performed By: #### L 500.4050 ####[facility] [place] [address] [place], [address] AST [Catalytic activity/Vol] 51 U/L High <=37 [facility] [place] Comment on above: Performed By: #### L 500.4050 ####[facility] [place] [address] [place], [address] Bilirubin [Mass/Vol] 1.89 mg/dL High 0.00-1.30 [facility] Comment on above: Performed By: #### L 500.4050 ####[facility] [place] [address] [place], [address] BUN/CRE 7.1 RATIO Low 10-20 [facility] [place] Comment on above: Performed By: #### L 500.4050 ####[facility] [place] [address] [place], [address] Calcium [Mass/Vol] 7.8 mg/dL Normal 7.6-11.0 [facility] Comment on above: Performed By: #### L 500.4050 ####[facility] [place] [address] [place], [address] Chloride [Moles/Vol] 93 mmol/L Low 98-108 [facility] Comment on above: Performed By: #### L 500.4050 ####[facility] [place] [address] [place], [address] CO2 [Moles/Vol] 31.1 mmol/L Normal 21.0-32.0 [facility] [place] Comment on above: Performed By: #### L 500.4050 ####[facility] [place] [address] [place], [address] Creatinine [Mass/Vol] 0.80 mg/dL Normal 0.70-1.20 [facility] Comment on above: Performed By: #### L 500.4050 ####[facility] [place] [address] [place], [address] ECRCL 118.59 ml/min Normal 50-250 [facility] [place] Comment on above: Performed By: #### L 500.4050 ####[facility] [place] [address] [place], [address] GAP 7 Normal 5-15 [facility] [place] Comment on above: Performed By: #### L 500.4050 ####[facility] [place] [address] [place], [address] GFR/1.73 sq M.predicted among non-blacks MDRD (S/P/Bld) [Vol rate/Area] 103 mL/min/{1.73_m2} Normal >60 [facility] [place] Comment on above: Result Comment: mL/m in/1.73m2 CKD-EPI Creatinine Equation (2020) Performed By: #### L 500.4050 ####[facility] [place] [address] [place], [address] Globulin (S) [Mass/Vol] 2.5 g/dL Normal 2.2-4.2 [facility] Comment on above: Performed By: #### L 500.4050 ####[facility] [place] [address] [place], [address] Glucose [Mass/Vol] 174 mg/dL High 70-99 [facility] Comment on above: Performed By: #### L 500.4050 ####[facility] [place] [address] [place], [address] Potassium [Moles/Vol] 3.3 mmol/L Normal 3.3-5.1 [facility] Comment on above: Performed By: #### L 500.4050 ####[facility] [place] [address] [place], [address] Sodium [Moles/Vol] 132 mmol/L Low 133-145 [facility] Comment on above: Performed By: #### L 500.4050 ####[facility] [place] [address] [place], [address] T PROT 4.8 g/dL Low 5.9-8.4 [facility] [place] Comment on above: Performed By: #### L 500.4050 ####[facility] [place] [address] [place], [address] Urea nitrogen [Mass/Vol] 6 mg/dL Normal 4-19 [facility] [place] Comment on above: Performed By: #### L 500.4050 ####[facility] [address] [place], [address] Serum or plasma vancomycin m easurement (mass/volume)Ordered By: Cielo Tovar on 01-16-2025 Vancomycin [Mass/Vol] 7.7 ug/mL 0.0-15.0 [facility] Vancomycin, Random Levelon 0 01-16-2025 VANCO, RANDOM 7.7 ug/mL Normal 0.0-15.0 [facility] [place] Comment on above: Result Comment: VANC OMYCIN STANDARD DRUG THERAPY: CRITICAL VALUE IS > 15.0 mg/LVANCOMYCIN HIGH INTENSITY THERAPY: CRITICAL VALUE IS > 20.0 mg/LPLEASE CONTACT PHARMACY SERVICES (#9430) FOR INTERPRETATIONOF RESULTS. THIS RESULT DOES NOT REPRESENT A PEAK OR TROUGHLEVEL FOR THIS DRUG. Performed By: #### L 501.8850 ####[facility] [place] [address] [place], [address] Bedside Glucoseon 01-15-2025 FINGERSTICK GLU 237 mg/dL High 74-106 [facility] [place] Comment on above: Result Comment: BRISA GEMENT OF PATIENT CARE PER NURSING PROTOCOL Performed By: #### L 501.080 ####[facility] [place] [address] [place], [address] FINGERSTICK GLU 240 mg/dL High 74-106 [facility] [place] Comment on above: Result Comment: BRISA GEMENT OF PATIENT CARE PER NURSING PROTOCOL Performed By: #### L 501.080 ####[facility] [place] [address] [place], [address] FINGERSTICK GLU 221 mg/dL High 74-106 [facility] [place] Comment on above: Result Comment: BRISA GEMENT OF PATIENT CARE PER NURSING PROTOCOL Performed By: #### L 501.080 ####[facility] [place] [address], [address] FINGERSTICK GLU 167 mg/dL High 74-106 [facility] [place] Comment on above: Result Comment: BRISA GEMENT OF PATIENT CARE PER NURSING PROTOCOL Performed By: #### L 501.080 ####[facility] [place] [address] [place], [address] FINGERSTICK GLU 173 mg/dL High 74-106 [facility] [place] Comment on above: Result Comment: BRISA GEMENT OF PATIENT CARE PER NURSING PROTOCOL Performed By: #### L 501.080 ####[facility] [place] [address] [place], [address] CBC W/Diff, Automatedon - Absolute Lymph 1.06 X10 3/uL Normal 0.83-4.51 [facility] [place] Comment on above: Performed By: #### L 100.0100, L500.4050 ####[facility] [place] [address] [place], [address] Absolute Neut 5.3 X10 3/uL Normal 2.0-7.7 [facility] [place] Comment on above: Performed By: #### L 100.0100, L500.4050 ####[facility] [place] [address], [address] Basophils/100 WBC (Bld) 0.5 % Normal 0-1 [facility] Comment on above: Performed By: #### L 100.0100, L500.4050 ####[facility] [place] [address] [place], [address] Eosinophils/100 WBC (Bld) 6.1 % High 0-5 [facility] [place] Comment on above: Performed By: #### L 100.0100, L500.4050 ####[facility] [place] [address], [address] Erythrocyte distribution width (RBC) [Ratio] 18.6 % High 11.6-14.6 [facility] [place] Comment on above: Performed By: #### L 100.0100, L500.4050 ####[facility] [place] [address] [place], [address] Hematocrit (Bld) [Volume fraction] 23.2 % Low 40-54 [facility] [place] Comment on above: Performed By: #### L 100.0100, L500.4050 ####[facility] [place] [address] [place], [address] Hemoglobin (Bld) [Mass/Vol] 7.9 g/dL Low 13.0-16.5 [facility] [place] Comment on above: Performed By: #### L 100.0100, L500.4050 ####[facility] [place] [address] [place], [address] IG% 1.000 High 0.0-0.9 [facility] [place] Comment on above: Result Comment: IG% - Immature Granulocytes (promyelocytes, myelocytes andmetamyelocytes) > 1% indicates that a LEFT SHIFT is Present. Performed By: #### L 100.0100, L500.4050 ####[facility] [place] [address] [place], [address] Lymphocytes/100 WBC (Bld) 13.2 % Low 19-41 [facility] [place] Comment on above: Performed By: #### L 100.0100, L500.4050 ####[facility] [place] [address] [place], [address] MCH (RBC) [Entitic mass] 29.8 pg Normal 27.0-32.0 [facility] [place] Comment on above: Performed By: #### L 100.0100, L500.4050 ####[facility] [place] [address] [place], [address] MCHC (RBC) [Mass/Vol] 34.1 g/dL Normal 32-36 [facility] Comment on above: Performed By: #### L 100.0100, L500.4050 ####[facility] [place] [address] [place], [address] MCV (RBC) [Entitic vol] 87.5 fL Normal 80-94 [facility] Comment on above: Performed By: #### L 100.0100, L500.4050 ####[facility] [place] [address] [place], [address] Monocytes/100 WBC (Bld) 13.6 % High 0-10 [facility] Comment on above: Performed By: #### L 100.0100, L500.4050 ####[facility] [place] [address] [place], [address] Neutrophils/100 WBC (Bld) 65.6 % Normal 47-70 [facility] [place] Comment on above: Performed By: #### L 100.0100, L500.4050 ####[facility] [place] [address] [place], [address] Nucleated RBC (Bld) [#/Vol] 0 10*3/uL Normal 0-5 [facility] [place] Comment on above: Performed By: #### L 100.0100, L500.4050 ####[facility] [place] [address] [place], [address] Platelet mean volume (Bld) [Entitic vol] 11.0 fL Normal 6.2-12.0 [facility] [place] Comment on above: Performed By: #### L 100.0100, L500.4050 ####[facility] [place] [address] [place], [address] Platelets (Bld) [#/Vol] 118 10*3/uL Low 150-450 [facility] [place] Comment on above: Performed By: #### L 100.0100, L500.4050 ####[facility] [place] [address] [place], [address] RBC (Bld) [#/Vol] 2.65 10*6/uL Low 4.6-6.2 [facility] Comment on above: Performed By: #### L 100.0100, L500.4050 ####[facility] [place] [address] [place], [address] RDW SD 58.1 fl High 35.1-43.9 [facility] [place] Comment on above: Performed By: #### L 100.0100, L500.4050 ####[facility] [place] [address] [place], [address] WBC (Bld) [#/Vol] 8.0 10*3/uL Normal 4.4-11.0 [facility] Comment on above: Performed By: #### L 100.0100, L500.4050 ####[facility] [place] [address] [place], [address] Comprehensive Metabolic Prof [facility] 01-15-2025 Albumin/Globulin [Mass ratio] 0.8 {ratio} Low 0.9-2.4 [facility] [place] Comment on above: Performed By: #### L 100.0100, L500.4050 ####[facility] [place] [address] [place], [address] ALK PHOS 275 U/L High 40-129 [facility] [place] Comment on above: Performed By: #### L 100.0100, L500.4050 ####[facility] [place] [address] [place], [address] ALT [Catalytic activity/Vol] 56 U/L High <=46 [facility] [place] Comment on above: Performed By: #### L 100.0100, L500.4050 ####[facility] [place] [address] [place], [address] AST [Catalytic activity/Vol] 64 U/L High <=37 [facility] [place] Comment on above: Performed By: #### L 100.0100, L500.4050 ####[facility] [place] [address] [place], [address] Bilirubin [Mass/Vol] 2.06 mg/dL High 0.00-1.30 [facility] Comment on above: Performed By: #### L 100.0100, L500.4050 ####[facility] [place] [address] [place], [address] Calcium [Mass/Vol] 7.8 mg/dL Normal 7.6-11.0 [facility] Comment on above: Performed By: #### L 100.0100, L500.4050 ####[facility] [place] [address] [place], [address] Chloride [Moles/Vol] 94 mmol/L Low 98-108 [facility] Comment on above: Performed By: #### L 100.0100, L500.4050 ####[facility] [place] [address] [place], [address] CO2 [Moles/Vol] 26.7 mmol/L Normal 21.0-32.0 [facility] [place] Comment on above: Performed By: #### L 100.0100, L500.4050 ####[facility] [place] [address] [place], [address] GAP 9 Normal 5-15 [facility] [place] Comment on above: Performed By: #### L 100.0100, L500.4050 ####[facility] [place] [address] [place], [address] Potassium [Moles/Vol] 3.2 mmol/L Low 3.3-5.1 [facility] Comment on above: Performed By: #### L 100.0100, L500.4050 ####[facility] [place] [address] [place], [address] Sodium [Moles/Vol] 130 mmol/L Low 133-145 [facility] Comment on above: Performed By: #### L 100.0100, L500.4050 ####[facility] [place] [address] [place], [address] Albumin [Mass/Vol] 2.2 g/dL Low 3.5-5.0 [facility] Comment on above: Performed By: #### L 100.0100, L500.4050 ####[facility] [place] [address] [place], [address] BUN/CRE 6.0 RATIO Low 10-20 [facility] [place] Comment on above: Performed By: #### L 100.0100, L500.4050 ####[facility] [place] [address] [place], [address] Creatinine [Mass/Vol] 0.82 mg/dL Normal 0.70-1.20 [facility] Comment on above: Performed By: #### L 100.0100, L500.4050 ####[facility] [place] [address] [place], [address] ECRCL 115.58 ml/min Normal 50-250 [facility] [place] Comment on above: Performed By: #### L 100.0100, L500.4050 ####[facility] [place] [address] [place], [address] GFR/1.73 sq M.predicted among non-blacks MDRD (S/P/Bld) [Vol rate/Area] 102 mL/min/{1.73_m2} Normal >60 [facility] [place] Comment on above: Result Comment: mL/m in/1.73m2 CKD-EPI Creatinine Equation (2020) Performed By: #### L 100.0100, L500.4050 ####[facility] [place] [address] [place], [address] Globulin (S) [Mass/Vol] 2.7 g/dL Normal 2.2-4.2 [facility] Comment on above: Performed By: #### L 100.0100, L500.4050 ####[facility] [place] [address] [place], [address] Glucose [Mass/Vol] 178 mg/dL High 70-99 [facility] Comment on above: Performed By: #### L 100.0100, L500.4050 ####[facility] [place] [address] [place], [address] T PROT 4.9 g/dL Low 5.9-8.4 [facility] [place] Comment on above: Performed By: #### L 100.0100, L500.4050 ####[facility] [place] [address] [place], [address] Urea nitrogen [Mass/Vol] 5 mg/dL Normal 4-19 [facility] [place] Comment on above: Performed By: #### L 100.0100, L500.4050 ####[facility] [place] [address] [place], [address] Vancomycin, Random Levelon 0 01-15-2025 VANCO, RANDOM 20.7 ug/mL High 0.0-15.0 [facility] [place] Comment on above: Result Comment: VANC OMYCIN STANDARD DRUG THERAPY: CRITICAL VALUE IS > 15.0 mg/LVANCOMYCIN HIGH INTENSITY THERAPY: CRITICAL VALUE IS > 20.0 mg/LPLEASE CONTACT PHARMACY SERVICES (#4279) FOR INTERPRETATIONOF RESULTS. THIS RESULT DOES NOT REPRESENT A PEAK OR TROUGHLEVEL FOR THIS DRUG. Performed By: #### L 501.8850 ####[facility] [place] [address] [place], [address] Bedside Glucoseon 01-14-2025 FINGERSTICK GLU 194 mg/dL High 74-106 [facility] [place] Comment on above: Result Comment: BRISA MOROCHO OF PATIENT CARE PER NURSING PROTOCOL Performed By: #### L 501.080 ####[facility] [place] [address] [place], [address] FINGERSTICK GLU 261 mg/dL High 74-106 [facility] [place] Comment on above: Result Comment: BRISA GEMENT OF PATIENT CARE PER NURSING PROTOCOL Performed By: #### L 501.080 ####[facility] [place] [address] [place], [address] FINGERSTICK GLU 263 mg/dL High 74-106 [facility] [place] Comment on above: Result Comment: BRISA GEMENT OF PATIENT CARE PER NURSING PROTOCOL Performed By: #### L 501.080 ####[facility] [place] [address] [place], [address] CBC W/Diff, Automatedon 06-08 06-2024 Absolute Lymph 1.09 X10 3/uL Normal 0.83-4.51 [facility] [place] Comment on above: Performed By: #### L 100.0100, L500.4050 ####[facility] [place] [address] [place], [address] Absolute Neut 5.3 X10 3/uL Normal 2.0-7.7 [facility] [place] Comment on above: Performed By: #### L 100.0100, L500.4050 ####[facility] [place] [address] [place], [address] Basophils/100 WBC (Bld) 0.4 % Normal 0-1 [facility] Comment on above: Performed By: #### L 100.0100, L500.4050 ####[facility] [place] [address] [place], [address] Eosinophils/100 WBC (Bld) 5.5 % High 0-5 [facility] [place] Comment on above: Performed By: #### L 100.0100, L500.4050 ####[facility] [place] [address] [place], [address] Erythrocyte distribution width (RBC) [Ratio] 18.5 % High 11.6-14.6 [facility] [place] Comment on above: Performed By: #### L 100.0100, L500.4050 ####[facility] [place] [address] [place], [address] Hematocrit (Bld) [Volume fraction] 23.2 % Low 40-54 [facility] [place] Comment on above: Performed By: #### L 100.0100, L500.4050 ####[facility] [place] [address] [place], [address] Hemoglobin (Bld) [Mass/Vol] 7.8 g/dL Low 13.0-16.5 [facility] [place] Comment on above: Performed By: #### L 100.0100, L500.4050 ####[facility] [place] [address] [place], [address] IG% 1.000 High 0.0-0.9 [facility] [place] Comment on above: Result Comment: IG% - Immature Granulocytes (promyelocytes, myelocytes andmetamyelocytes) > 1% indicates that a LEFT SHIFT is Present. Performed By: #### L 100.0100, L500.4050 ####[facility] [place] [address] [place], [address] Lymphocytes/100 WBC (Bld) 13.5 % Low 19-41 [facility] [place] Comment on above: Performed By: #### L 100.0100, L500.4050 ####[facility] [place] [address] [place], [address] MCH (RBC) [Entitic mass] 29.5 pg Normal 27.0-32.0 [facility] [place] Comment on above: Performed By: #### L 100.0100, L500.4050 ####[facility] [place] [address] [place], [address] MCHC (RBC) [Mass/Vol] 33.6 g/dL Normal 32-36 [facility] Comment on above: Performed By: #### L 100.0100, L500.4050 ####[facility] [place] [address] [place], [address] MCV (RBC) [Entitic vol] 87.9 fL Normal 80-94 [facility] Comment on above: Performed By: #### L 100.0100, L500.4050 ####[facility] [place] [address] [place], [address] Monocytes/100 WBC (Bld) 14.3 % High 0-10 [facility] Comment on above: Performed By: #### L 100.0100, L500.4050 ####[facility] [place] [address] [place], [address] Neutrophils/100 WBC (Bld) 65.3 % Normal 47-70 [facility] [place] Comment on above: Performed By: #### L 100.0100, L500.4050 ####[facility] [place] [address] [place], [address] Nucleated RBC (Bld) [#/Vol] 0 10*3/uL Normal 0-5 [facility] [place] Comment on above: Performed By: #### L 100.0100, L500.4050 ####[facility] [place] [address] [place], [address] Platelet mean volume (Bld) [Entitic vol] 11.8 fL Normal 6.2-12.0 [facility] [place] Comment on above: Performed By: #### L 100.0100, L500.4050 ####[facility] [place] [address] [place], [address] Platelets (Bld) [#/Vol] 121 10*3/uL Low 150-450 [facility] [place] Comment on above: Performed By: #### L 100.0100, L500.4050 ####[facility] [place] [address] [place], [address] RBC (Bld) [#/Vol] 2.64 10*6/uL Low 4.6-6.2 [facility] Comment on above: Performed By: #### L 100.0100, L500.4050 ####[facility] [place] [address] [place], [address] RDW SD 58.4 fl High 35.1-43.9 [facility] [place] Comment on above: Performed By: #### L 100.0100, L500.4050 ####[facility] [place] [address] [place], [address] WBC (Bld) [#/Vol] 8.1 10*3/uL Normal 4.4-11.0 [facility] Comment on above: Performed By: #### L 100.0100, L500.4050 ####[facility] [place] [address] [place], [address] Chest without Contraston Chest without Contrast Normal [facility] Comprehensive Metabolic Prof ilon 01-14-2025 Albumin [Mass/Vol] 2.4 g/dL Low 3.5-5.0 [facility] Comment on above: Performed By: #### L 100.0100, L500.4050 ####[facility] [place] [address] [place], [address] Albumin/Globulin [Mass ratio] 0.9 {ratio} Normal 0.9-2.4 [facility] [place] Comment on above: Performed By: #### L 100.0100, L500.4050 ####[facility] [place] [address] [place], [address] ALK PHOS 293 U/L High 40-129 [facility] [place] Comment on above: Performed By: #### L 100.0100, L500.4050 ####[facility] [place] [address] [place], [address] ALT [Catalytic activity/Vol] 61 U/L High <=46 [facility] [place] Comment on above: Performed By: #### L 100.0100, L500.4050 ####[facility] [place] [address] [place], [address] AST [Catalytic activity/Vol] 83 U/L High <=37 [facility] [place] Comment on above: Performed By: #### L 100.0100, L500.4050 ####[facility] [place] [address] [place], [address] Bilirubin [Mass/Vol] 2.64 mg/dL High 0.00-1.30 [facility] Comment on above: Performed By: #### L 100.0100, L500.4050 ####[facility] [place] [address] [place], [address] BUN/CRE 6.4 RATIO Low 10-20 [facility] [place] Comment on above: Performed By: #### L 100.0100, L500.4050 ####[facility] [place] [address] [place], [address] Calcium [Mass/Vol] 7.9 mg/dL Normal 7.6-11.0 [facility] Comment on above: Performed By: #### L 100.0100, L500.4050 ####[facility] [place] [address] [place], [address] Chloride [Moles/Vol] 95 mmol/L Low 98-108 [facility] Comment on above: Performed By: #### L 100.0100, L500.4050 ####[facility] [place] [address] [place], [address] CO2 [Moles/Vol] 25.1 mmol/L Normal 21.0-32.0 [facility] [place] Comment on above: Performed By: #### L 100.0100, L500.4050 ####[facility] [address] [place], [address] Creatinine [Mass/Vol] 0.86 mg/dL Normal 0.70-1.20 [facility] Comment on above: Performed By: #### L 100.0100, L500.4050 ####[facility] [facility] [place] [address] [place], [address] ECRCL 110.10 ml/min Normal 50-250 [facility] [place] Comment on above: Performed By: #### L 100.0100, L500.4050 ####[facility] [place] [address] [place], [address] GAP 11 Normal 5-15 [facility] [place] Comment on above: Performed By: #### L 100.0100, L500.4050 ####[facility] [place] [address] [place], [address] GFR/1.73 sq M.predicted among non-blacks MDRD (S/P/Bld) [Vol rate/Area] 100 mL/min/{1.73_m2} Normal >60 [facility] [place] Comment on above: Result Comment: mL/m in/1.73m2 CKD-EPI Creatinine Equation (2020) Performed By: #### L 100.0100, L500.4050 ####[facility] [place] [address] [place], [address] Globulin (S) [Mass/Vol] 2.5 g/dL Normal 2.2-4.2 [facility] Comment on above: Performed By: #### L 100.0100, L500.4050 ####[facility] [place] [address] [place], [address] Glucose [Mass/Vol] 280 mg/dL High 70-99 [facility] Comment on above: Performed By: #### L 100.0100, L500.4050 ####[facility] [place] [address] [place], [address] Potassium [Moles/Vol] 3.0 mmol/L Low 3.3-5.1 [facility] Comment on above: Performed By: #### L 100.0100, L500.4050 ####[facility] [place] [address] [place], [address] Sodium [Moles/Vol] 131 mmol/L Low 133-145 [facility] Comment on above: Performed By: #### L 100.0100, L500.4050 ####[facility] [place] [address] [place], [address] T PROT 4.9 g/dL Low 5.9-8.4 [facility] [place] Comment on above: Performed By: #### L 100.0100, L500.4050 ####[facility] [place] [address] [place], [address] Urea nitrogen [Mass/Vol] 6 mg/dL Normal 4-19 [facility] [place] Comment on above: Performed By: #### L 100.0100, L500.4050 ####[facility] [place] [address] [place], [address] Culture, Blood (WB)on 2024 CUB Blood cultures x2, f rom two different sites No growth in 5 days. Normal [facility] [place] Comment on above: Performed By: #### M 200.1000 ####[facility] [place] [address] [place], [address] Magnetic resonance imaging r eportOrdered By: Kenneth Barton on 01-14-2025 Study report [facility] [place] Work Phone: PSA,Total- Diagnosticon 01-02 PSA, DIAGNOSTIC 0.65 ng/mL Normal 0.00-4.00 [facility] [place] Comment on above: Result Comment: This test was performed using the [employer] tPSAmethod. Measured values of a patient??sample can varydepending on the testing procedure used. PSA valuesdetermined on patient samples by different testingprocedures cannot be used interchangeably. If there is achange in PSA assays while monitoring therapy, sequentialtesting should be performed to confirm baseline values. Performed By: #### L 501.9940 ####[facility] [place] [address] [place], [place], [address] Trough vancomycin levelOrder ed By: Cielo Tovar on 01-14-2025 Vancomycin trough [Mass/Vol] 21.4 ug/mL High 5.0-15.0 [facility] [place] Vancomycin, Trough Levelon 0 01-14-2025 VANCO, TROUGH 21.4 ug/mL High 5.0-15.0 [facility] [place] Comment on above: Order Comment: 1830 Result Comment: Eleazar mmended goal trough ranges [...] therapy recommended for serious lifethreatening infections include:- Gvxtkktlnw-Mdlldgwkeqvc-Shwtlebwi (Ventilator/Healtcare Associated)-SepsisPLEASE CONTACT PHARMACY SERVICES (#5854) FOR INTERPRETATIONOF RESULTS. Performed By: #### L 501.8820 ####[facility] [place] [address] [place], [address] BRCon 01-13-2025 RC Normal [facility] [place] Comment on above: Result Comment: [id number] ON TRANSFUSED 01/13/25 1613 Performed By: #### B , BTS ####[facility] [place] [address] [place], [address] Bedside Glucoseon 01-13-2025 FINGERSTICK GLU 272 mg/dL High 74-106 [facility] [place] Comment on above: Result Comment: BRISA MOROCHO OF PATIENT CARE PER NURSING PROTOCOL Performed By: #### L 501.080 ####[facility] [place] [address], [address] FINGERSTICK GLU 268 mg/dL High 74-106 [facility] [place] Comment on above: Result Comment: BRISA GEMENT OF PATIENT CARE PER NURSING PROTOCOL Performed By: #### L 501.080 ####[facility] [place] [address], [address] FINGERSTICK GLU 249 mg/dL High 74-106 [facility] [place] Comment on above: Result Comment: BRISA GEMENT OF PATIENT CARE PER NURSING PROTOCOL Performed By: #### L 501.080 ####[facility] [place] [address] [place], [address] FINGERSTICK GLU 201 mg/dL High 74-106 [facility] [place] Comment on above: Result Comment: BRISA GEMENT OF PATIENT CARE PER NURSING PROTOCOL Performed By: #### L 501.080 ####[facility] [place] [address] [place], [address] CBC W/Diff, Automatedon 06-08 05-2024 Absolute Lymph 1.25 X10 3/uL Normal 0.83-4.51 [facility] [place] Comment on above: Performed By: #### L 100.0100, L500.4050 ####[facility] [place] [address] [place], [address] Absolute Neut 5.7 X10 3/uL Normal 2.0-7.7 [facility] [place] Comment on above: Performed By: #### L 100.0100, L500.4050 ####[facility] [place] [address] [place], [address] Basophils/100 WBC (Bld) 0.3 % Normal 0-1 [facility] Comment on above: Performed By: #### L 100.0100, L500.4050 ####[facility] [place] [address] [place], [address] Eosinophils/100 WBC (Bld) 5.2 % High 0-5 [facility] [place] Comment on above: Performed By: #### L 100.0100, L500.4050 ####[facility] [place] [address] [place], [address] Erythrocyte distribution width (RBC) [Ratio] 18.6 % High 11.6-14.6 [facility] [place] Comment on above: Performed By: #### L 100.0100, L500.4050 ####[facility] [place] [address] [place], [address] Hematocrit (Bld) [Volume fraction] 21.0 % Low 40-54 [facility] [place] Comment on above: Performed By: #### L 100.0100, L500.4050 ####[facility] [place] [address] [place], [address] Hemoglobin (Bld) [Mass/Vol] 7.2 g/dL Low 13.0-16.5 [facility] [place] Comment on above: Performed By: #### L 100.0100, L500.4050 ####[facility] [place] [address] [place], [address] IG% 0.800 Normal 0.0-0.9 [facility] [place] Comment on above: Result Comment: IG% - Immature Granulocytes (promyelocytes, myelocytes andmetamyelocytes) > 1% indicates that a LEFT SHIFT is Present. Performed By: #### L 100.0100, L500.4050 ####[facility] [place] [address] [place], [address] Lymphocytes/100 WBC (Bld) 14.4 % Low 19-41 [facility] [place] Comment on above: Performed By: #### L 100.0100, L500.4050 ####[facility] [place] [address] [place], [address] MCH (RBC) [Entitic mass] 30.3 pg Normal 27.0-32.0 [facility] [place] Comment on above: Performed By: #### L 100.0100, L500.4050 ####[facility] [place] [address] [place], [address] MCHC (RBC) [Mass/Vol] 34.3 g/dL Normal 32-36 [facility] Comment on above: Performed By: #### L 100.0100, L500.4050 ####[facility] [place] [address] [place], [address] MCV (RBC) [Entitic vol] 88.2 fL Normal 80-94 [facility] Comment on above: Performed By: #### L 100.0100, L500.4050 ####[facility] [place] [address] [place], [address] Monocytes/100 WBC (Bld) 13.7 % High 0-10 [facility] Comment on above: Performed By: #### L 100.0100, L500.4050 ####[facility] [place] [address] [place], [address] Neutrophils/100 WBC (Bld) 65.6 % Normal 47-70 [facility] [place] Comment on above: Performed By: #### L 100.0100, L500.4050 ####[facility] [place] [address] [place], [address] Nucleated RBC (Bld) [#/Vol] 0 10*3/uL Normal 0-5 [facility] [place] Comment on above: Performed By: #### L 100.0100, L500.4050 ####[facility] [place] [address] [place], [address] Platelet mean volume (Bld) [Entitic vol] 11.3 fL Normal 6.2-12.0 [facility] [place] Comment on above: Performed By: #### L 100.0100, L500.4050 ####[facility] [place] [address], [address] Platelets (Bld) [#/Vol] 124 10*3/uL Low 150-450 [facility] [place] Comment on above: Performed By: #### L 100.0100, L500.4050 ####[facility] [place] [address] [place], [address] RBC (Bld) [#/Vol] 2.38 10*6/uL Low 4.6-6.2 [facility] Comment on above: Performed By: #### L 100.0100, L500.4050 ####[facility] [place] [address] [place], [address] RDW SD 59.2 fl High 35.1-43.9 [facility] [place] Comment on above: Performed By: #### L 100.0100, L500.4050 ####[facility] [place] [address] [place], [address] WBC (Bld) [#/Vol] 8.7 10*3/uL Normal 4.4-11.0 [facility] Comment on above: Performed By: #### L 100.0100, L500.4050 ####[facility] [place] [address] [place], [address] Comprehensive Metabolic [facility] 01-13-2025 Albumin [Mass/Vol] 2.3 g/dL Low 3.5-5.0 [facility] Comment on above: Performed By: #### L 100.0100, L500.4050 ####[facility] [place] [address] [place], [address] Albumin/Globulin [Mass ratio] 0.9 {ratio} Normal 0.9-2.4 [facility] [place] Comment on above: Performed By: #### L 100.0100, L500.4050 ####[facility] [place] [address] [place], [address] ALK PHOS 306 U/L High 40-129 [facility] [place] Comment on above: Performed By: #### L 100.0100, L500.4050 ####[facility] [place] [address] [place], [address] ALT [Catalytic activity/Vol] 72 U/L High <=46 [facility] [place] Comment on above: Performed By: #### L 100.0100, L500.4050 ####[facility] [place] [address] [place], [address] AST [Catalytic activity/Vol] 107 U/L High <=37 [facility] [place] Comment on above: Performed By: #### L 100.0100, L500.4050 ####[facility] [place] [address] [place], [address] Bilirubin [Mass/Vol] 1.69 mg/dL High 0.00-1.30 [facility] Comment on above: Performed By: #### L 100.0100, L500.4050 ####[facility] [place] [address] [place], [address] BUN/CRE 7.3 RATIO Low 10-20 [facility] [place] Comment on above: Performed By: #### L 100.0100, L500.4050 ####[facility] [place] [address] [place], [address] Calcium [Mass/Vol] 7.7 mg/dL Normal 7.6-11.0 [facility] Comment on above: Performed By: #### L 100.0100, L500.4050 ####[facility] [place] [address] [place], [address] Chloride [Moles/Vol] 96 mmol/L Low 98-108 [facility] Comment on above: Performed By: #### L 100.0100, L500.4050 ####[facility] [place] [address] [place], [address] CO2 [Moles/Vol] 25.5 mmol/L Normal 21.0-32.0 [facility] [place] Comment on above: Performed By: #### L 100.0100, L500.4050 ####[facility] [place] [address] [place], [address] Creatinine [Mass/Vol] 0.90 mg/dL Normal 0.70-1.20 [facility] Comment on above: Performed By: #### L 100.0100, L500.4050 ####[facility] [place] [address] [place], [address] ECRCL 103.13 ml/min Normal 50-250 [facility] [place] Comment on above: Performed By: #### L 100.0100, L500.4050 ####[facility] [place] [address] [place], [address] GAP 10 Normal 5-15 [facility] [place] Comment on above: Performed By: #### L 100.0100, L500.4050 ####[facility] [place] [address] [place], [address] GFR/1.73 sq M.predicted among non-blacks MDRD (S/P/Bld) [Vol rate/Area] 99 mL/min/{1.73_m2} Normal >60 [facility] [place] Comment on above: Result Comment: mL/m in/1.73m2 CKD-EPI Creatinine Equation (2020) Performed By: #### L 100.0100, L500.4050 ####[facility] [place] [address] [place], [address] Globulin (S) [Mass/Vol] 2.6 g/dL Normal 2.2-4.2 [facility] Comment on above: Performed By: #### L 100.0100, L500.4050 ####[facility] [place] [address] [place], [address] Glucose [Mass/Vol] 187 mg/dL High 70-99 [facility] Comment on above: Performed By: #### L 100.0100, L500.4050 ####[facility] [place] [address] [place], [address] Potassium [Moles/Vol] 3.1 mmol/L Low 3.3-5.1 [facility] Comment on above: Performed By: #### L 100.0100, L500.4050 ####[facility] [place] [address] [place], [address] Sodium [Moles/Vol] 132 mmol/L Low 133-145 [facility] Comment on above: Performed By: #### L 100.0100, L500.4050 ####[facility] [place] [address] [place], [address] T PROT 4.9 g/dL Low 5.9-8.4 [facility] [place] Comment on above: Performed By: #### L 100.0100, L500.4050 ####[facility] [place] [address] [place], [address] Urea nitrogen [Mass/Vol] 7 mg/dL Normal 4-19 [facility] [place] Comment on above: Performed By: #### L 100.0100, L500.4050 ####[facility] [place] [address] [place], [address] Ferritinon 01-13-2025 Ferritin [Mass/Vol] 76 ng/mL Normal 37-417 [facility] Comment on above: Performed By: #### L 503.6550, L503.6030 ####[facility] [place] [address] [place], [address] Iron measurement (mass/mass) Ordered By: Cielo Tovar on 01-13-2025 Iron (Unsp spec) [Mass/Mass] 110 ug/dL 65-175 [facility] [place] Iron+Iron Binding Capacityon 01-13-2025 TIBC 211 ug/dL Low 250-450 [facility] [place] Comment on above: Performed By: #### L 503.6550, L503.6030 ####[facility] [place] [address] [place], [place], [id number] Magnetic resonance imaging r eportOrdered By: Jerry Osorio on 01-13-2025 Study report [facility] [place] No Panel InformationOrdered By: Cielo Tovar on 01-13-2025 101 ug/dL Low 228-428 [facility] [place] Serum or plasma ferritin wei surement (mass/volume)Ordered By: Cielo Tovar on 01-13-2025 Ferritin [Mass/Vol] 76 ng/mL 37-417 [facility] Serum or plasma iron saturat ion measurement (mass fraction)Ordered By: Cielo Tovar on 01-13-2025 Iron saturation [Mass fraction] 52.1 % 9-55 [facility] [place] Spine Lumbar (Routine)on Spine Lumbar (Routine) Normal [facility] Spine Thoracic (Routine)on 0 01-13-2025 Spine Thoracic (Routine) Normal [facility] [place] Type AND Screenon 01-13-2025 ABO and Rh group Nom (Bld) Blood group O Rh(D) positive Normal [facility] [place] Comment on above: Order Comment: CMV N EG? NNumber of units to transfuse: 1Reason for Ordering Blood: AcuteAre the blood/blood products to be transfused? YIs the patient having/had surgery? NNWhen ReadyNYA Performed By: #### B RC, BTS ####[facility] [place] [address] [place], [place], [id number] Vancomycin, Trough Levelon 0 01-13-2025 VANCO, TROUGH 19.8 ug/mL High 5.0-15.0 [facility] [place] Comment on above: Order Comment: Comme nts: Trough to be drawn 30 mins prior to scheduled [id number] Result Comment: Eleazar mmended goal trough ranges [...] therapy recommended for serious lifethreatening infections include:- Iplflyelgq-Yupehqeaasgd-Pimryydev (Ventilator/Healtcare Associated)-SepsisPLEASE CONTACT PHARMACY SERVICES (#2785) FOR INTERPRETATIONOF RESULTS. Performed By: #### L 501.8820 ####[facility] [place] [address] [facility] [address] Bedside Glucoseon 01-12-2025 FINGERSTICK GLU 241 mg/dL High [address] [place] [address] Comment on above: Result Comment: BRISA GEMENT OF PATIENT CARE PER NURSING PROTOCOL Performed By: #### L 501.080 ####[facility] [place] [address] [facility] [address] FINGERSTICK GLU 316 mg/dL High [address] [place] [address] Comment on above: Result Comment: BRISA GEMENT OF PATIENT CARE PER NURSING PROTOCOL Performed By: #### L 501.080 ####[facility] [place] [address] [facility] [address] FINGERSTICK GLU 224 mg/dL High [address] [place] [address] Comment on above: Result Comment: BRISA GEMENT OF PATIENT CARE PER NURSING PROTOCOL Performed By: #### L 501.080 ####[facility] [place] [address] [facility] [address] FINGERSTICK GLU 214 mg/dL High -[address] [place] [address] Comment on above: Result Comment: BRISA GEMENT OF PATIENT CARE PER NURSING PROTOCOL Performed By: #### L 501.080 ####[facility] [place] [address] [facility] [address] CBC W/Diff, Automatedon - Absolute Lymph 0.99 X10 3/uL Normal 0.83-4.51 [facility] [place] Comment on above: Performed By: #### L 100.0100, L500.4050 ####[facility] [place] [address] [place], [address] Absolute Neut 5.9 X10 3/uL Normal 2.0-7.7 [facility] [place] Comment on above: Performed By: #### L 100.0100, L500.4050 ####[facility] [place] [address] [place], [address] Basophils/100 WBC (Bld) 0.5 % Normal 0-1 [facility] Comment on above: Performed By: #### L 100.0100, L500.4050 ####[facility] [place] [address] [place], [address] Eosinophils/100 WBC (Bld) 6.5 % High 0-5 [facility] [place] Comment on above: Performed By: #### L 100.0100, L500.4050 ####[facility] [place] [address] [place], [address] Erythrocyte distribution width (RBC) [Ratio] 18.4 % High 11.6-14.6 [facility] [place] Comment on above: Performed By: #### L 100.0100, L500.4050 ####[facility] [place] [address] [place], [address] Hematocrit (Bld) [Volume fraction] 21.8 % Low 40-54 [facility] [place] Comment on above: Performed By: #### L 100.0100, L500.4050 ####[facility] [place] [address] [place], [address] Hemoglobin (Bld) [Mass/Vol] 7.4 g/dL Low 13.0-16.5 [facility] [place] Comment on above: Performed By: #### L 100.0100, L500.4050 ####[facility] [place] [address] [place], [address] IG% 1.100 High 0.0-0.9 [facility] [place] Comment on above: Result Comment: IG% - Immature Granulocytes (promyelocytes, myelocytes andmetamyelocytes) > 1% indicates that a LEFT SHIFT is Present. Performed By: #### L 100.0100, L500.4050 ####[facility] [facility] [place] [address] [place], [address] Lymphocytes/100 WBC (Bld) 11.6 % Low 19-41 [facility] [place] Comment on above: Performed By: #### L 100.0100, L500.4050 ####[facility] [address] [place], [address] MCH (RBC) [Entitic mass] 29.5 pg Normal 27.0-32.0 [facility] Comment on above: Performed By: #### L 100.0100, L500.4050 ####[facility] [address] [place], [address] MCHC (RBC) [Mass/Vol] 33.9 g/dL Normal 32-36 [facility] Comment on above: Performed By: #### L 100.0100, L500.4050 ####[facility] [address] [place], [address] MCV (RBC) [Entitic vol] 86.9 fL Normal 80-94 [facility] Comment on above: Performed By: #### L 100.0100, L500.4050 ####[facility] [address] [place], [address] Monocytes/100 WBC (Bld) 12.1 % High 0-10 [facility] Comment on above: Performed By: #### L 100.0100, L500.4050 ####[facility] [address] [place], [address] Neutrophils/100 WBC (Bld) 68.2 % Normal 47-70 [facility] Comment on above: Performed By: #### L 100.0100, L500.4050 ####[facility] [address] [place], [address] Nucleated RBC (Bld) [#/Vol] 0 10*3/uL Normal 0-5 [facility] Comment on above: Performed By: #### L 100.0100, L500.4050 ####[facility] [address] [place], [address] Platelet mean volume (Bld) [Entitic vol] 11.7 fL Normal 6.2-12.0 [facility] Comment on above: Performed By: #### L 100.0100, L500.4050 ####[facility] [address] [place], [address] Platelets (Bld) [#/Vol] 127 10*3/uL Low 150-450 [facility] Comment on above: Performed By: #### L 100.0100, L500.4050 ####[facility] [address] [place], [address] RBC (Bld) [#/Vol] 2.51 10*6/uL Low 4.6-6.2 [facility] Comment on above: Performed By: #### L 100.0100, L500.4050 ####[facility] [address] [place], [address] RDW SD 57.6 fl High 35.1-43.9 [facility] Comment on above: Performed By: #### L 100.0100, L500.4050 ####[facility] [place] [address] [place], [address] WBC (Bld) [#/Vol] 8.6 10*3/uL Normal 4.4-11.0 [facility] Comment on above: Performed By: #### L 100.0100, L500.4050 ####[facility] [address] [place], [address] Comprehensive Metabolic Prof ilon 01-12-2025 Albumin [Mass/Vol] 2.4 g/dL Low 3.5-5.0 [facility] Comment on above: Performed By: #### L 100.0100, L500.4050 ####[facility] [address] [place], [address] Albumin/Globulin [Mass ratio] 0.9 {ratio} Normal 0.9-2.4 [facility] Comment on above: Performed By: #### L 100.0100, L500.4050 ####[facility] [place] [address] [place], [address] ALK PHOS 332 U/L High 40-129 [facility] Comment on above: Performed By: #### L 100.0100, L500.4050 ####[facility] [address] [place], [address] ALT [Catalytic activity/Vol] 82 U/L High <=46 [facility] Comment on above: Performed By: #### L 100.0100, L500.4050 ####[facility] [address] [place], [address] AST [Catalytic activity/Vol] 148 U/L High <=37 [facility] Comment on above: Performed By: #### L 100.0100, L500.4050 ####[facility] [address] [place], [address] Bilirubin [Mass/Vol] 1.95 mg/dL High 0.00-1.30 [facility] Comment on above: Performed By: #### L 100.0100, L500.4050 ####[facility] [address] [place], [address] BUN/CRE 10.5 RATIO Normal 10-20 [facility] Comment on above: Performed By: #### L 100.0100, L500.4050 ####[facility] [address] [place], [address] Calcium [Mass/Vol] 7.6 mg/dL Normal 7.6-11.0 [facility] Comment on above: Performed By: #### L 100.0100, L500.4050 ####[facility] [address] [place], [address] Chloride [Moles/Vol] 97 mmol/L Low 98-108 [facility] Comment on above: Performed By: #### L 100.0100, L500.4050 ####[facility] [address] [place], [address] CO2 [Moles/Vol] 24.4 mmol/L Normal 21.0-32.0 [facility] Comment on above: Performed By: #### L 100.0100, L500.4050 ####[facility] [address] [place], [address] Creatinine [Mass/Vol] 0.93 mg/dL Normal 0.70-1.20 [facility] Comment on above: Performed By: #### L 100.0100, L500.4050 ####[facility] [address] [place], [address] ECRCL 99.17 ml/min Normal 50-250 [facility] Comment on above: Performed By: #### L 100.0100, L500.4050 ####[facility] [address] [place], [address] GAP 9 Normal 5-15 [facility] Comment on above: Performed By: #### L 100.0100, L500.4050 ####[facility] [address] [place], [address] GFR/1.73 sq M.predicted among non-blacks MDRD (S/P/Bld) [Vol rate/Area] 95 mL/min/{1.73_m2} Normal >60 [facility] Comment on above: Result Comment: mL/m in/1.73m2 CKD-EPI Creatinine Equation (2020) Performed By: #### L 100.0100, L500.4050 ####[facility] [address] [place], [address] Globulin (S) [Mass/Vol] 2.7 g/dL Normal 2.2-4.2 [facility] Comment on above: Performed By: #### L 100.0100, L500.4050 ####[facility] [address], [address] Glucose [Mass/Vol] 241 mg/dL High 70-99 [facility] Comment on above: Performed By: #### L 100.0100, L500.4050 ####[facility] [address] [place], [address] Potassium [Moles/Vol] 3.1 mmol/L Low 3.3-5.1 [facility] Comment on above: Performed By: #### L 100.0100, L500.4050 ####[facility] [address] [place], [address] Sodium [Moles/Vol] 130 mmol/L Low 133-145 [facility] Comment on above: Performed By: #### L 100.0100, L500.4050 ####[facility] [address] [place], [address] T PROT 5.0 g/dL Low 5.9-8.4 [facility] Comment on above: Performed By: #### L 100.0100, L500.4050 ####[facility] [address] [place], [address] Urea nitrogen [Mass/Vol] 10 mg/dL Normal 4-19 [facility] Comment on above: Performed By: #### L 100.0100, L500.4050 ####[facility] [address] [place], [address] Urine Cultureon 01-12-2025 URC Urine Culture Urine Culture Yeast, not Mary albicans [place] Count 25,000-50,000 Normal [facility] Comment on above: Performed By: #### M 100.2200 ####[facility] [address] [place], [address] Bedside Glucoseon 01-11-2025 FINGERSTICK GLU 258 mg/dL High 74-106 [facility] Comment on above: Result Comment: BRISA GEMENT OF PATIENT CARE PER NURSING PROTOCOL Performed By: #### L 501.080 ####[facility] [address] [place], [address] FINGERSTICK GLU 298 mg/dL High 74-106 [facility] Comment on above: Result Comment: BRISA GEMENT OF PATIENT CARE PER NURSING PROTOCOL Performed By: #### L 501.080 ####[facility] [address] [place], [address] FINGERSTICK GLU 268 mg/dL High 74-106 [facility] Comment on above: Result Comment: BRISA GEMENT OF PATIENT CARE PER NURSING PROTOCOL Performed By: #### L 501.080 ####[facility] [address] [place], [address] FINGERSTICK GLU 251 mg/dL High 74-106 [facility] Comment on above: Result Comment: BRISA GEMENT OF PATIENT CARE PER NURSING PROTOCOL Performed By: #### L 501.080 ####[facility] [address] [place], [address] CBC W/Diff, Automatedon - Absolute Lymph 1.01 X10 3/uL Normal 0.83-4.51 [facility] Comment on above: Performed By: #### L 100.0100 ####[facility] [address] [place], [address] Absolute Neut 5.6 X10 3/uL Normal 2.0-7.7 [facility] Comment on above: Performed By: #### L 100.0100 ####[facility] [address] [place], [address] Basophils/100 WBC (Bld) 0.5 % Normal 0-1 [facility] Comment on above: Performed By: #### L 100.0100 ####[facility] [address] [place], [address] Eosinophils/100 WBC (Bld) 4.6 % Normal 0-5 [facility] Comment on above: Performed By: #### L 100.0100 ####[facility] [address] [place], [address] Erythrocyte distribution width (RBC) [Ratio] 18.6 % High 11.6-14.6 [facility] Comment on above: Performed By: #### L 100.0100 ####[facility] [address] [place], [address] Hematocrit (Bld) [Volume fraction] 21.8 % Low 40-54 [facility] Comment on above: Performed By: #### L 100.0100 ####[facility] [place] [address] [place], [address] Hemoglobin (Bld) [Mass/Vol] 7.4 g/dL Low 13.0-16.5 [facility] Comment on above: Performed By: #### L 100.0100 ####[facility] [address] [place], [address] IG% 0.900 Normal 0.0-0.9 [facility] Comment on above: Result Comment: IG% - Immature Granulocytes (promyelocytes, myelocytes andmetamyelocytes) > 1% indicates that a LEFT SHIFT is Present. Performed By: #### L 100.0100 ####[facility] [address] [place], [address] Lymphocytes/100 WBC (Bld) 12.6 % Low 19-41 [facility] Comment on above: Performed By: #### L 100.0100 ####[facility] [address] [place], [address] MCH (RBC) [Entitic mass] 29.7 pg Normal 27.0-32.0 [facility] Comment on above: Performed By: #### L 100.0100 ####[facility] [address] [place], [address] MCHC (RBC) [Mass/Vol] 33.9 g/dL Normal 32-36 [facility] Comment on above: Performed By: #### L 100.0100 ####[facility] [address] [place], [address] MCV (RBC) [Entitic vol] 87.6 fL Normal 80-94 [facility] Comment on above: Performed By: #### L 100.0100 ####[facility] [address] [place], [address] Monocytes/100 WBC (Bld) 11.8 % High 0-10 [facility] Comment on above: Performed By: #### L 100.0100 ####[facility] [address] [place], [address] Neutrophils/100 WBC (Bld) 69.6 % Normal 47-70 [facility] Comment on above: Performed By: #### L 100.0100 ####[facility] [address] [place], [address] Nucleated RBC (Bld) [#/Vol] 0 10*3/uL Normal 0-5 [facility] Comment on above: Performed By: #### L 100.0100 ####[facility] [address] [place], [address] Platelet mean volume (Bld) [Entitic vol] 12.1 fL High 6.2-12.0 [facility] Comment on above: Performed By: #### L 100.0100 ####[facility] [address] [place], [address] Platelets (Bld) [#/Vol] 130 10*3/uL Low 150-450 [facility] Comment on above: Performed By: #### L 100.0100 ####[facility] [address] [place], [address] RBC (Bld) [#/Vol] 2.49 10*6/uL Low 4.6-6.2 [facility] Comment on above: Performed By: #### L 100.0100 ####[facility] [address] [place], [address] RDW SD 56.7 fl High 35.1-43.9 [facility] Comment on above: Performed By: #### L 100.0100 ####[facility] [address] [place], [address] WBC (Bld) [#/Vol] 8.0 10*3/uL Normal 4.4-11.0 [facility] Comment on above: Performed By: #### L 100.0100 ####[facility] [address] [place], [address] Absolute Neut Normal 2.0-7.7 [facility] Comment on above: Result Comment: This specimen has been REJECTED due to Laboratory criteria:Clotted.RUFINAOTT has been notified of need of recollection.01/11/25 0556 Vitaliy Moreira Performed By: #### L 100.0100, L500.4050 ####[facility] [address] [place], [address] HCT Normal 40-54 [facility] Comment on above: Result Comment: This specimen has been REJECTED due to Laboratory criteria:Clotted.DSCOTT has been notified of need of recollection.01/11/25555 Vitaliy Lillie Performed By: #### L 100.0100, L500.4050 ####[facility] [address] [place], [address] HGB Normal 13.0-16.5 [facility] Comment on above: Result Comment: This specimen has been REJECTED due to Laboratory criteria:Clotted.DSCOTT has been notified of need of recollection.01/11/25555 Vitaliy Corinth Performed By: #### L 100.0100, L500.4050 ####[facility] [address] [facility] [address] MCH Normal 27.0-32.0 [facility] Comment on above: Result Comment: This specimen has been REJECTED due to Laboratory criteria:Clotted.DSCOTT has been notified of need of recollection.01/11/25555 Vitaliy Corinth Performed By: #### L 100.0100, L500.4050 ####[facility] [address] [facility] [address] MCHC Normal 32-36 [facility] Comment on above: Result Comment: This specimen has been REJECTED due to Laboratory criteria:Clotted.DSCOTT has been notified of need of recollection.01/11/25555 Vitaliy Lillie Performed By: #### L 100.0100, L500.4050 ####[facility] [address] [place], [address] MCV Normal 80-94 [facility] Comment on above: Result Comment: This specimen has been REJECTED due to Laboratory criteria:Clotted.DSCOTT has been notified of need of recollection.01/11/25555 Vitaliy Lillie Performed By: #### L 100.0100, L500.4050 ####[facility] [address] [place], [address] NEUT% Normal 47-70 [facility] Comment on above: Result Comment: This specimen has been REJECTED due to Laboratory criteria:Clotted.DSCOTT has been notified of need of recollection.01/11/25555 Vitaliy Lillie Performed By: #### L 100.0100, L500.4050 ####[facility] [address] [place], [address] PLT Normal 150-450 [facility] Comment on above: Result Comment: This specimen has been REJECTED due to Laboratory criteria:Clotted.DSCOTT has been notified of need of recollection.01/11/25555 Vitaliy Corinth Performed By: #### L 100.0100, L500.4050 ####[facility] [address] [facility] [address] RBC Normal 4.6-6.2 [facility] Comment on above: Result Comment: This specimen has been REJECTED due to Laboratory criteria:Clotted.DSCOTT has been notified of need of recollection.01/11/25555 Vitaliy Lillie Performed By: #### L 100.0100, L500.4050 ####[facility] [address] [place], [address] RDW CV Normal 11.6-14.6 [facility] Comment on above: Result Comment: This specimen has been REJECTED due to Laboratory criteria:Clotted.DSCOTT has been notified of need of recollection.01/11/25555 Vitaliy Lillie Performed By: #### L 100.0100, L500.4050 ####[facility] [address] [place], [address] RDW SD Normal 35.1-43.9 [facility] Comment on above: Result Comment: This specimen has been REJECTED due to Laboratory criteria:Clotted.DSCOTT has been notified of need of recollection.01/11/25555 Vitaliy Lillie Performed By: #### L 100.0100, L500.4050 ####[facility] [address] [place], [address] WBC Normal 4.4-11.0 [facility] Comment on above: Result Comment: This specimen has been REJECTED due to Laboratory criteria:Clotted.YSABEL has been notified of need of recollection.01/11/2556 Vitaliy Moreira Performed By: #### L 100.0100, L500.4050 ####[facility] [address] [place], [address] Comprehensive Metabolic Prof ilon 01-11-2025 Albumin [Mass/Vol] 2.2 g/dL Low 3.5-5.0 [facility] Comment on above: Performed By: #### L 100.0100, L500.4050 ####[facility] [address] [place], [address] Albumin/Globulin [Mass ratio] 0.8 {ratio} Low 0.9-2.4 [facility] Comment on above: Performed By: #### L 100.0100, L500.4050 ####[facility] [address] [place], [address] ALK PHOS 314 U/L High 40-129 [facility] Comment on above: Performed By: #### L 100.0100, L500.4050 ####[facility] [address] [place], [address] ALT [Catalytic activity/Vol] 66 U/L High <=46 [facility] Comment on above: Performed By: #### L 100.0100, L500.4050 ####[facility] [address] [place], [address] AST [Catalytic activity/Vol] 137 U/L High <=37 [facility] Comment on above: Result Comment: Hemo lysis present, Results??could be affected.?? Performed By: #### L 100.0100, L500.4050 ####[facility] [address] [place], [address] Bilirubin [Mass/Vol] 2.05 mg/dL High 0.00-1.30 [facility] Comment on above: Performed By: #### L 100.0100, L500.4050 ####[facility] [address] [place], [address] BUN/CRE 13.4 RATIO Normal 10-20 [facility] Comment on above: Performed By: #### L 100.0100, L500.4050 ####[facility] [address] [place], [address] Calcium [Mass/Vol] 7.6 mg/dL Normal 7.6-11.0 [facility] Comment on above: Performed By: #### L 100.0100, L500.4050 ####[facility] [address] [place], [address] Chloride [Moles/Vol] 99 mmol/L Normal 98-108 [facility] Comment on above: Performed By: #### L 100.0100, L500.4050 ####[facility] [address] [place], [address] CO2 [Moles/Vol] 17.3 mmol/L Low 21.0-32.0 [facility] Comment on above: Performed By: #### L 100.0100, L500.4050 ####[facility] [facility] [place] [address] [place], [address] Creatinine [Mass/Vol] 1.18 mg/dL Normal 0.70-1.20 [facility] Comment on above: Performed By: #### L 100.0100, L500.4050 ####[facility] [place] [address] [place], [address] ECRCL 78.27 ml/min Normal 50-250 [facility] [place] Comment on above: Performed By: #### L 100.0100, L500.4050 ####[facility] [place] [address] [place], [address] GAP 12 Normal 5-15 [facility] [place] Comment on above: Performed By: #### L 100.0100, L500.4050 ####[facility] [place] [address] [place], [address] GFR/1.73 sq M.predicted among non-blacks MDRD (S/P/Bld) [Vol rate/Area] 72 mL/min/{1.73_m2} Normal >60 [facility] [place] Comment on above: Result Comment: mL/m in/1.73m2 CKD-EPI Creatinine Equation (2020) Performed By: #### L 100.0100, L500.4050 ####[facility] [place] [address] [place], [address] Globulin (S) [Mass/Vol] 2.8 g/dL Normal 2.2-4.2 [facility] Comment on above: Performed By: #### L 100.0100, L500.4050 ####[facility] [place] [address] [place], [address] Glucose [Mass/Vol] 275 mg/dL High 70-99 [facility] Comment on above: Performed By: #### L 100.0100, L500.4050 ####[facility] [place] [address] [place], [address] Potassium [Moles/Vol] 3.5 mmol/L Normal 3.3-5.1 [facility] Comment on above: Result Comment: Hemo lysis present, Results??could be affected.?? Performed By: #### L 100.0100, L500.4050 ####[facility] [place] [address] [place], [address] Sodium [Moles/Vol] 129 mmol/L Low 133-145 [facility] Comment on above: Performed By: #### L 100.0100, L500.4050 ####[facility] [place] [address] [place], [address] T PROT 5.0 g/dL Low 5.9-8.4 [facility] Comment on above: Performed By: #### L 100.0100, L500.4050 ####[facility] [place] [address] [place], [address] Urea nitrogen [Mass/Vol] 16 mg/dL Normal 4-19 [facility] [place] Comment on above: Performed By: #### L 100.0100, L500.4050 ####[facility] [place] [address] [place], [address] Consultation - Surgicalon Consultation - Surgical Normal [facility] Vancomycin, Random Levelon 0 01-11-2025 VANCO, RANDOM 14.8 ug/mL Normal 0.0-15.0 [facility] Comment on above: Result Comment: VANC OMYCIN STANDARD DRUG THERAPY: CRITICAL VALUE IS > 15.0 mg/LVANCOMYCIN HIGH INTENSITY THERAPY: CRITICAL VALUE IS > 20.0 mg/LPLEASE CONTACT PHARMACY SERVICES (#3142) FOR INTERPRETATIONOF RESULTS. THIS RESULT DOES NOT REPRESENT A PEAK OR TROUGHLEVEL FOR THIS DRUG. Performed By: #### L 501.8850 ####[facility] [place] [address] [place], [address] Vancomycin, Trough Levelon 0 - VANCO, TROUGH 21.8 ug/mL High 5.0-15.0 [facility] [place] Comment on above: Order Comment: Comme nts: DRAW 30 MIN PRIOR TO [id number] Result Comment: Eleazar mmended goal trough ranges [...] therapy recommended for serious lifethreatening infections include:- Tvvwourovy-Hcpgjzfwnjhm-Hehbsushl (Ventilator/Healtcare Associated)-SepsisPLEASE CONTACT PHARMACY SERVICES (#5229) FOR INTERPRETATIONOF RESULTS. Performed By: #### L 501.8820 ####[facility] [place] [address] [facility] [address] Bedside Glucoseon 01-10-2025 FINGERSTICK GLU 193 mg/dL High 74-106 [facility] [place] Comment on above: Result Comment: BRISA GEMENT OF PATIENT CARE PER NURSING PROTOCOL Performed By: #### L 501.080 ####[facility] [place] [address] [facility] [address] FINGERSTICK GLU 190 mg/dL High 74-106 [facility] [place] Comment on above: Result Comment: BRISA GEMENT OF PATIENT CARE PER NURSING PROTOCOL Performed By: #### L 501.080 ####[facility] [place] [address] [facility] [address] FINGERSTICK GLU 195 mg/dL High -106 [facility] [place] Comment on above: Result Comment: BRISA GEMENT OF PATIENT CARE PER NURSING PROTOCOL Performed By: #### L 501.080 ####[facility] [place] [address] [facility] [address] CBC W/Diff, Automatedon 06-0 Absolute Lymph 0.85 X10 3/uL Normal 0.83-4.51 [facility] [place] Comment on above: Order Comment: ROSIO Gupta PREVIOUS SPECIMEN REJECTED DUE TOCONTAMINATION. 01/10/25 0411 Eliazar Mancia. Performed By: #### L 100.0100 ####[facility] [place] [address] [facility] [address] Absolute Neut 7.3 X10 3/uL Normal 2.0-7.7 [facility] [place] Comment on above: Order Comment: REDRA W. PREVIOUS SPECIMEN REJECTED DUE TOCONTAMINATION. 01/10/25410 Eliazar R Mancia. Performed By: #### L 100.0100 ####[facility] [address] [place], [address] Basophils/100 WBC (Bld) 0.5 % Normal 0-1 [facility] Comment on above: Order Comment: REDRA W. PREVIOUS SPECIMEN REJECTED DUE TOCONTAMINATION. 01/10/25410 Eliazar R Mancia. Performed By: #### L 100.0100 ####[facility] [address] [place], [address] Eosinophils/100 WBC (Bld) 5.9 % High 0-5 [facility] [place] Comment on above: Order Comment: REDRA W. PREVIOUS SPECIMEN REJECTED DUE TOCONTAMINATION. 01/10/25410 Eliazar R Mancia. Performed By: #### L 100.0100 ####[facility] [address] [place], [address] Erythrocyte distribution width (RBC) [Ratio] 18.7 % High 11.6-14.6 [facility] [place] Comment on above: Order Comment: REDRA W. PREVIOUS SPECIMEN REJECTED DUE TOCONTAMINATION. 01/10/25410 Eliazar R Mancia. Performed By: #### L 100.0100 ####[facility] [place] [address] [place], [address] Hematocrit (Bld) [Volume fraction] 23.1 % Low 40-54 [facility] Comment on above: Order Comment: REDRA W. PREVIOUS SPECIMEN REJECTED DUE TOCONTAMINATION. 01/10/25410 Eliazar R Mancia. Performed By: #### L 100.0100 ####[facility] [place] [address] [place], [address] Hemoglobin (Bld) [Mass/Vol] 7.4 g/dL Low 13.0-16.5 [facility] Comment on above: Order Comment: REDRA W. PREVIOUS SPECIMEN REJECTED DUE TOCONTAMINATION. 01/10/25410 Eliazar R Mancia. Performed By: #### L 100.0100 ####[facility] [address] [place], [address] IG% 0.500 Normal 0.0-0.9 [facility] Comment on above: Order Comment: REDRA W. PREVIOUS SPECIMEN REJECTED DUE TOCONTAMINATION. 01/10/25410 Eliazar R Mancia. Result Comment: IG% - Immature Granulocytes (promyelocytes, myelocytes andmetamyelocytes) > 1% indicates that a LEFT SHIFT is Present. Performed By: #### L 100.0100 ####[facility] [place] [address] [place], [address] Lymphocytes/100 WBC (Bld) 8.8 % Low 19-41 [facility] Comment on above: Order Comment: REDRA W. PREVIOUS SPECIMEN REJECTED DUE TOCONTAMINATION. 01/10/25410 Eliazar R Mancia. Performed By: #### L 100.0100 ####[facility] [address] [place], [address] MCH (RBC) [Entitic mass] 29.2 pg Normal 27.0-32.0 [facility] Comment on above: Order Comment: REDRA W. PREVIOUS SPECIMEN REJECTED DUE TOCONTAMINATION. 01/10/25410 Eliazar R Mancia. Performed By: #### L 100.0100 ####[facility] [address] [place], [address] MCHC (RBC) [Mass/Vol] 32.0 g/dL Normal 32-36 [facility] Comment on above: Order Comment: REDRA W. PREVIOUS SPECIMEN REJECTED DUE TOCONTAMINATION. 01/10/25410 Eliazar R Mancia. Performed By: #### L 100.0100 ####[facility] [place] [address] [place], [address] MCV (RBC) [Entitic vol] 91.3 fL Normal 80-94 [facility] Comment on above: Order Comment: REDRA W. PREVIOUS SPECIMEN REJECTED DUE TOCONTAMINATION. 01/10/25410 Eliazar R Mancia. Performed By: #### L 100.0100 ####[facility] [place] [address] [place], [address] Monocytes/100 WBC (Bld) 8.2 % Normal 0-10 [facility] Comment on above: Order Comment: REDRA W. PREVIOUS SPECIMEN REJECTED DUE TOCONTAMINATION. 01/10/25410 Eliazar R Mancia. Performed By: #### L 100.0100 ####[facility] [place] [address] [place], [address] Neutrophils/100 WBC (Bld) 76.1 % High 47-70 [facility] [place] Comment on above: Order Comment: REDRA W. PREVIOUS SPECIMEN REJECTED DUE TOCONTAMINATION. 01/10/25410 Eliazar R Mancia. Performed By: #### L 100.0100 ####[facility] [place] [address] [place], [address] Nucleated RBC (Bld) [#/Vol] 0 10*3/uL Normal 0-5 [facility] Comment on above: Order Comment: REDRA W. PREVIOUS SPECIMEN REJECTED DUE TOCONTAMINATION. 01/10/25410 Eliazar R Mancia. Performed By: #### L 100.0100 ####[facility] [place] [address] [place], [address] Platelet mean volume (Bld) [Entitic vol] 12.3 fL High 6.2-12.0 [facility] Comment on above: Order Comment: REDRA W. PREVIOUS SPECIMEN REJECTED DUE TOCONTAMINATION. 01/10/25410 Eliazar R Mancia. Performed By: #### L 100.0100 ####[facility] [place] [address] [place], [address] Platelets (Bld) [#/Vol] 110 10*3/uL Low 150-450 [facility] Comment on above: Order Comment: REDRA W. PREVIOUS SPECIMEN REJECTED DUE TOCONTAMINATION. 01/10/25410 Eliazar R Mancia. Performed By: #### L 100.0100 ####[facility] [place] [address] [place], [address] RBC (Bld) [#/Vol] 2.53 10*6/uL Low 4.6-6.2 [facility] Comment on above: Order Comment: REDRA W. PREVIOUS SPECIMEN REJECTED DUE TOCONTAMINATION. 01/10/25410 Eliazar R Mancia. Performed By: #### L 100.0100 ####[facility] [place] [address] [place], [address] RDW SD 60.1 fl High 35.1-43.9 [facility] Comment on above: Order Comment: REDRA W. PREVIOUS SPECIMEN REJECTED DUE TOCONTAMINATION. 01/10/25410 Eliazar R Mancia. Performed By: #### L 100.0100 ####[facility] [place] [address] [place], [address] WBC (Bld) [#/Vol] 9.6 10*3/uL Normal 4.4-11.0 [facility] Comment on above: Order Comment: REDRA W. PREVIOUS SPECIMEN REJECTED DUE TOCONTAMINATION. 01/10/25410 Eliazar R Mancia. Performed By: #### L 100.0100 ####[facility] [address] [place], [address] DIFF INDICATED? SCAN CRITERIA MET Normal [facility] Comment on above: Result Comment: This specimen has been REJECTED due to Laboratory criteria:Contaminated/Leaked.[facility] has been notified of need of recollection.01/10/25408 Eliazar R Mancia Performed By: #### L 100.0100, L500.4050 ####[facility] [address] [place], [address] Hemoglobin (Bld) [Mass/Vol] 5.5 g/dL Invalid Interpretation Code 13.0-16.5 [facility] Comment on above: Result Comment: This specimen has been REJECTED due to Laboratory criteria:Contaminated/Leaked.[facility] has been notified of need of recollection.01/10/25408 Eliazar R BurnsCRITICAL VALUE CALLED TO PORTIA TAVAREZ (ICU)01/10/25 0336 Henry Calloway.RESULTS READ BACK BY SAME. Performed By: #### L 100.0100, L500.4050 ####[facility] [address] [place], [address] Absolute Lymph 4.28 X10 3/uL Normal 0.83-4.51 [facility] Comment on above: Result Comment: This specimen has been REJECTED due to Laboratory criteria:Contaminated/Leaked.[facility] has been notified of need of recollection.01/10/25408 Eliazar R Mancia Performed By: #### L 100.0100, L500.4050 ####[facility] [address] [place], [address] Absolute Neut 1.7 X10 3/uL Low 2.0-7.7 [facility] Comment on above: Result Comment: This specimen has been REJECTED due to Laboratory criteria:Contaminated/Leaked.[facility] has been notified of need of recollection.01/10/25408 Eliazar R Mancia Performed By: #### L 100.0100, L500.4050 ####[facility] [address] [place], [address] BASO# 0.01 X10 3/uL Normal [facility] Comment on above: Result Comment: This specimen has been REJECTED due to Laboratory criteria:Contaminated/Leaked.[facility] has been notified of need of recollection.01/10/25408 Eliazar R Mancia Performed By: #### L 100.0100, L500.4050 ####[facility] [address] [place], [address] Basophils/100 WBC (Bld) 0.2 % Normal 0-1 [facility] Comment on above: Result Comment: This specimen has been REJECTED due to Laboratory criteria:Contaminated/Leaked.[facility] has been notified of need of recollection.01/10/25408 Eliazar R Mancia Performed By: #### L 100.0100, L500.4050 ####[facility] [address] [place], [address] EOS# 0.15 X10 3/uL Normal [facility] Comment on above: Result Comment: This specimen has been REJECTED due to Laboratory criteria:Contaminated/Leaked.[facility] has been notified of need of recollection.01/10/25408 Eliazar R Mancia Performed By: #### L 100.0100, L500.4050 ####[facility] [place] [address] [place], [address] Eosinophils/100 WBC (Bld) 2.4 % Normal 0-5 [facility] Comment on above: Result Comment: This specimen has been REJECTED due to Laboratory criteria:Contaminated/Leaked.[facility] has been notified of need of recollection.01/10/25408 Eliazar R Mancia Performed By: #### L 100.0100, L500.4050 ####[facility] [address] [place], [address] Erythrocyte distribution width (RBC) [Ratio] 19.2 % High 11.6-14.6 [facility] Comment on above: Result Comment: This specimen has been REJECTED due to Laboratory criteria:Contaminated/Leaked.[facility] has been notified of need of recollection.01/10/25408 Eliazar R Mancia Performed By: #### L 100.0100, L500.4050 ####[facility] [place] [address] [place], [address] Hematocrit (Bld) [Volume fraction] 20.7 % Low 40-54 [facility] Comment on above: Result Comment: This specimen has been REJECTED due to Laboratory criteria:Contaminated/Leaked.[facility] has been notified of need of recollection.01/10/25408 Eliazar R Mancia Performed By: #### L 100.0100, L500.4050 ####[facility] [place] [address] [place], [address] IG# 0.020 X10 3/uL High 0.0-0.0 [facility] [place] Comment on above: Result Comment: This specimen has been REJECTED due to Laboratory criteria:Contaminated/Leaked.[facility] has been notified of need of recollection.01/10/25408 Eliazar R Mancia Performed By: #### L 100.0100, L500.4050 ####[facility] [place] [address] [place], [address] IG% 0.300 Normal 0.0-0.9 [facility] Comment on above: Result Comment: This specimen has been REJECTED due to Laboratory criteria:Contaminated/Leaked.[facility] has been notified of need of recollection.01/10/25408 Eliazar R BurnsIG% - Immature Granulocytes (promyelocytes, myelocytes andmetamyelocytes) > 1% indicates that a LEFT SHIFT is Present. Performed By: #### L 100.0100, L500.4050 ####[facility] [address] [place], [address] LYMPH# 4.28 X10 3/ul Normal 0.83-4.51 [facility] Comment on above: Result Comment: This specimen has been REJECTED due to Laboratory criteria:Contaminated/Leaked.[facility] has been notified of need of recollection.01/10/25408 Eliazar R Mancia Performed By: #### L 100.0100, L500.4050 ####[facility] [address] [facility] [address] [place], [address] Lymphocytes/100 WBC (Bld) 67.8 % High 19-41 [facility] Comment on above: Result Comment: This specimen has been REJECTED due to Laboratory criteria:Contaminated/Leaked.[facility] has been notified of need of recollection.06/09/25 0409 Eliazar R Mancia Performed By: #### L 100.0100, L500.4050 ####[facility] [place] [address] [place], [address] MCH (RBC) [Entitic mass] 29.4 pg Normal 27.0-32.0 [facility] Comment on above: Result Comment: This specimen has been REJECTED due to Laboratory criteria:Contaminated/Leaked.[facility] has been notified of need of recollection.01/10/25408 Eliazar R Mancia Performed By: #### L 100.0100, L500.4050 ####[facility] [address] [place], [address] MCHC (RBC) [Mass/Vol] 26.6 g/dL Low 32-36 [facility] Comment on above: Result Comment: This specimen has been REJECTED due to Laboratory criteria:Contaminated/Leaked.[facility] has been notified of need of recollection.01/10/25408 Eliazar R Mancia Performed By: #### L 100.0100, L500.4050 ####[facility] [address] [place], [address] MCV (RBC) [Entitic vol] 110.7 fL High 80-94 [facility] Comment on above: Result Comment: This specimen has been REJECTED due to Laboratory criteria:Contaminated/Leaked.[facility] has been notified of need of recollection.01/10/25408 Eliazar R Mancia Performed By: #### L 100.0100, L500.4050 ####[facility] [address] [place], [address] MONO # 0.16 X10 3/uL Normal [facility] Comment on above: Result Comment: This specimen has been REJECTED due to Laboratory criteria:Contaminated/Leaked.[facility] has been notified of need of recollection.01/10/25408 Eliazar R Mancia Performed By: #### L 100.0100, L500.4050 ####[facility] [address] [place], [address] Monocytes/100 WBC (Bld) 2.5 % Normal 0-10 [facility] Comment on above: Result Comment: This specimen has been REJECTED due to Laboratory criteria:Contaminated/Leaked.[facility] has been notified of need of recollection.01/10/25408 Eliazar R Mancia Performed By: #### L 100.0100, L500.4050 ####[facility] [address] [place], [address] Neutrophil # 1.69 X10 3/uL Low 2.7-7.7 [facility] Comment on above: Result Comment: This specimen has been REJECTED due to Laboratory criteria:Contaminated/Leaked.[facility] has been notified of need of recollection.01/10/25408 Eliazar R Mancia Performed By: #### L 100.0100, L500.4050 ####[facility] [address] [place], [address] Neutrophils/100 WBC (Bld) 26.8 % Low 47-70 [facility] Comment on above: Result Comment: This specimen has been REJECTED due to Laboratory criteria:Contaminated/Leaked.[facility] has been notified of need of recollection.01/10/25408 Eliazar R Mancia Performed By: #### L 100.0100, L500.4050 ####[facility] [address] [place], [address] Nucleated RBC (Bld) [#/Vol] 0 10*3/uL Normal 0-5 [facility] Comment on above: Result Comment: This specimen has been REJECTED due to Laboratory criteria:Contaminated/Leaked.[facility] has been notified of need of recollection.01/10/25408 Eliazar R Mancia Performed By: #### L 100.0100, L500.4050 ####[facility] [address] [place], [address] Platelet mean volume (Bld) [Entitic vol] 12.2 fL High 6.2-12.0 [facility] Comment on above: Result Comment: This specimen has been REJECTED due to Laboratory criteria:Contaminated/Leaked.[facility] has been notified of need of recollection.01/10/25408 Eliazar R Mancia Performed By: #### L 100.0100, L500.4050 ####[facility] [address] [place], [address] Platelets (Bld) [#/Vol] 97 10*3/uL Low 150-450 [facility] Comment on above: Result Comment: This specimen has been REJECTED due to Laboratory criteria:Contaminated/Leaked.[facility] has been notified of need of recollection.01/10/25408 Eliazar R Mancia Performed By: #### L 100.0100, L500.4050 ####[facility] [address] [place], [address] POSITIVE COUNT YES Abnormal [facility] [place] Comment on above: Result Comment: This specimen has been REJECTED due to Laboratory criteria:Contaminated/Leaked.[facility] has been notified of need of recollection.01/10/25408 Eliazar R Mancia Performed By: #### L 100.0100, L500.4050 ####[facility] [place] [address] [place], [address] POSITIVE MORPH YES Abnormal [facility] [place] Comment on above: Result Comment: This specimen has been REJECTED due to Laboratory criteria:Contaminated/Leaked.[facility] has been notified of need of recollection.01/10/25408 Eliazar R Mancia Performed By: #### L 100.0100, L500.4050 ####[facility] [place] [address] [place], [address] RBC (Bld) [#/Vol] 1.87 10*6/uL Low 4.6-6.2 [facility] Comment on above: Result Comment: This specimen has been REJECTED due to Laboratory criteria:Contaminated/Leaked.[facility] has been notified of need of recollection.01/10/25408 Eliazar R Mancia Performed By: #### L 100.0100, L500.4050 ####[facility] [place] [address] [place], [address] RDW SD 73.4 fl High 35.1-43.9 [facility] Comment on above: Result Comment: This specimen has been REJECTED due to Laboratory criteria:Contaminated/Leaked.[facility] has been notified of need of recollection.01/10/25408 Eliazar R Mancia Performed By: #### L 100.0100, L500.4050 ####[facility] [address] [place], [address] WBC (Bld) [#/Vol] 6.3 10*3/uL Normal 4.4-11.0 [facility] Comment on above: Result Comment: This specimen has been REJECTED due to Laboratory criteria:Contaminated/Leaked.[facility] has been notified of need of recollection.01/10/25408 Eliazar R Mancia Performed By: #### L 100.0100, L500.4050 ####[facility] [address] [place], [address] Comprehensive Metabolic Prof ilon 01-10-2025 Albumin [Mass/Vol] 2.4 g/dL Low 3.5-5.0 [facility] Comment on above: Order Comment: REDRA W. PREVIOUS SPECIMEN REJECTED DUE TOCONTAMINATION. 01/10/25409 Eliazar R Mancia. Performed By: #### L 500.4050, L501.5200, L501.2300 ####[facility] [address] [place], [address] Albumin/Globulin [Mass ratio] 0.9 {ratio} Normal 0.9-2.4 [facility] Comment on above: Order Comment: REDRA W. PREVIOUS SPECIMEN REJECTED DUE TOCONTAMINATION. 01/10/25409 Eliazar R Mancia. Performed By: #### L 500.4050, L501.5200, L501.2300 ####[facility] [address] [place], [address] ALK PHOS 244 U/L High 40-129 [facility] Comment on above: Order Comment: REDRA W. PREVIOUS SPECIMEN REJECTED DUE TOCONTAMINATION. 01/10/25409 Eliazar R Mancia. Performed By: #### L 500.4050, L501.5200, L501.2300 ####[facility] [address] [place], [address] ALT [Catalytic activity/Vol] 54 U/L High <=46 [facility] [place] Comment on above: Order Comment: REDRA W. PREVIOUS SPECIMEN REJECTED DUE TOCONTAMINATION. 01/10/25409 Eliazar R Mancia. Performed By: #### L 500.4050, L501.5200, L501.2300 ####[facility] [place] [address] [place], [address] AST [Catalytic activity/Vol] 101 U/L High <=37 [facility] Comment on above: Order Comment: REDRA W. PREVIOUS SPECIMEN REJECTED DUE TOCONTAMINATION. 01/10/25409 Eliazar R Mancia. Performed By: #### L 500.4050, L501.5200, L501.2300 ####[facility] [address] [place], [address] Bilirubin [Mass/Vol] 1.57 mg/dL High 0.00-1.30 [facility] Comment on above: Order Comment: REDRA W. PREVIOUS SPECIMEN REJECTED DUE TOCONTAMINATION. 01/10/25409 Eliazar R Mancia. Performed By: #### L 500.4050, L501.5200, L501.2300 ####[facility] [address] [place], [address] BUN/CRE 13.7 RATIO Normal 10-20 [facility] Comment on above: Order Comment: REDRA W. PREVIOUS SPECIMEN REJECTED DUE TOCONTAMINATION. 01/10/25409 Eliazar R Mancia. Performed By: #### L 500.4050, L501.5200, L501.2300 ####[facility] [address] [place], [address] Calcium [Mass/Vol] 7.8 mg/dL Normal 7.6-11.0 [facility] Comment on above: Order Comment: REDRA W. PREVIOUS SPECIMEN REJECTED DUE TOCONTAMINATION. 01/10/25409 Eliazar R Mancia. Performed By: #### L 500.4050, L501.5200, L501.2300 ####[facility] [address] [place], [address] Chloride [Moles/Vol] 101 mmol/L Normal 98-108 [facility] Comment on above: Order Comment: REDRA W. PREVIOUS SPECIMEN REJECTED DUE TOCONTAMINATION. 01/10/25409 Eliazar R Mancia. Performed By: #### L 500.4050, L501.5200, L501.2300 ####[facility] [address] [place], [address] CO2 [Moles/Vol] 13.1 mmol/L Low 21.0-32.0 [facility] Comment on above: Order Comment: REDRA W. PREVIOUS SPECIMEN REJECTED DUE TOCONTAMINATION. 01/10/25409 Eliazar R Mancia. Performed By: #### L 500.4050, L501.5200, L501.2300 ####[facility] [address] [place], [address] Creatinine [Mass/Vol] 1.95 mg/dL High 0.70-1.20 [facility] Comment on above: Order Comment: REDRA W. PREVIOUS SPECIMEN REJECTED DUE TOCONTAMINATION. 01/10/25409 Eliazar R Mancia. Performed By: #### L 500.4050, L501.5200, L501.2300 ####[facility] [address] [place], [address] ECRCL 45.71 ml/min Low 50-250 [facility] Comment on above: Order Comment: REDRA W. PREVIOUS SPECIMEN REJECTED DUE TOCONTAMINATION. 01/10/25409 Eliazar R Mancia. Performed By: #### L 500.4050, L501.5200, L501.2300 ####[facility] [address] [place], [address] GAP 15 Normal 5-15 [facility] Comment on above: Order Comment: REDRA W. PREVIOUS SPECIMEN REJECTED DUE TOCONTAMINATION. 01/10/25409 Eliazar R Mancia. Performed By: #### L 500.4050, L501.5200, L501.2300 ####[facility] [address] [place], [address] GFR/1.73 sq M.predicted among non-blacks MDRD (S/P/Bld) [Vol rate/Area] 39 mL/min/{1.73_m2} Low >60 [facility] Comment on above: Order Comment: REDRA W. PREVIOUS SPECIMEN REJECTED DUE TOCONTAMINATION. 01/10/25409 Eliazar R Mancia. Result Comment: mL/m in/1.73m2 CKD-EPI Creatinine Equation (2020) Performed By: #### L 500.4050, L501.5200, L501.2300 ####[facility] [address] [place], [address] Globulin (S) [Mass/Vol] 2.6 g/dL Normal 2.2-4.2 [facility] Comment on above: Order Comment: REDRA W. PREVIOUS SPECIMEN REJECTED DUE TOCONTAMINATION. 01/10/25409 Eliazar R Mancia. Performed By: #### L 500.4050, L501.5200, L501.2300 ####[facility] [address] [place], [address] Glucose [Mass/Vol] 247 mg/dL High 70-99 [facility] Comment on above: Order Comment: REDRA W. PREVIOUS SPECIMEN REJECTED DUE TOCONTAMINATION. 01/10/25409 Eliazar R Mancia. Performed By: #### L 500.4050, L501.5200, L501.2300 ####[facility] [address] [place], [address] Potassium [Moles/Vol] 3.4 mmol/L Normal 3.3-5.1 [facility] Comment on above: Order Comment: REDRA W. PREVIOUS SPECIMEN REJECTED DUE TOCONTAMINATION. 01/10/25409 Eliazar R Mancia. Performed By: #### L 500.4050, L501.5200, L501.2300 ####[facility] [address] [place], [address] Sodium [Moles/Vol] 129 mmol/L Low 133-145 [facility] Comment on above: Order Comment: REDRA W. PREVIOUS SPECIMEN REJECTED DUE TOCONTAMINATION. 01/10/25409 Eliazar R Mancia. Performed By: #### L 500.4050, L501.5200, L501.2300 ####[facility] [place] [address] [place], [address] T PROT 5.0 g/dL Low 5.9-8.4 [facility] Comment on above: Order Comment: REDRA W. PREVIOUS SPECIMEN REJECTED DUE TOCONTAMINATION. 01/10/25409 Eliazar R Mancia. Performed By: #### L 500.4050, L501.5200, L501.2300 ####[facility] [address] [place], [address] Urea nitrogen [Mass/Vol] 27 mg/dL High 4-19 [facility] Comment on above: Order Comment: REDRA W. PREVIOUS SPECIMEN REJECTED DUE TOCONTAMINATION. 01/10/25409 Eliazar R Mancia. Performed By: #### L 500.4050, L501.5200, L501.2300 ####[facility] [address] [place], [address] ALB Normal 3.5-5.0 [facility] Comment on above: Result Comment: This specimen has been REJECTED due to Laboratory criteria:Contaminated/Leaked.[facility] has been notified of need of recollection.01/10/25408 Eliazar R Mancia Performed By: #### L 100.0100, L500.4050 ####[facility] [address] [place], [address] ALK PHOS Normal 40-129 [facility] Comment on above: Result Comment: This specimen has been REJECTED due to Laboratory criteria:Contaminated/Leaked.[facility] has been notified of need of recollection.01/10/25408 Eliazar R Mancia Performed By: #### L 100.0100, L500.4050 ####[facility] [address] [place], [address] ALT Normal <=46 [facility] Comment on above: Result Comment: This specimen has been REJECTED due to Laboratory criteria:Contaminated/Leaked.[facility] has been notified of need of recollection.01/10/25408 Eliazar R Mancia Performed By: #### L 100.0100, L500.4050 ####[facility] [address] [place], [address] AST Normal <=37 [facility] Comment on above: Result Comment: This specimen has been REJECTED due to Laboratory criteria:Contaminated/Leaked.[facility] has been notified of need of recollection.01/10/25408 Eliazar R Mancia Performed By: #### L 100.0100, L500.4050 ####[facility] [address] [place], [address] BUN Normal 4-19 [facility] Comment on above: Result Comment: This specimen has been REJECTED due to Laboratory criteria:Contaminated/Leaked.[facility] has been notified of need of recollection.01/10/25408 Eliazar R Mancia Performed By: #### L 100.0100, L500.4050 ####[facility] [address] [place], [address] BUN/CRE Normal 10-20 [facility] Comment on above: Result Comment: This specimen has been REJECTED due to Laboratory criteria:Contaminated/Leaked.[facility] has been notified of need of recollection.01/10/25408 Eliazar R Mancia Performed By: #### L 100.0100, L500.4050 ####[facility] [address] [place], [address] Calcium Normal 7.6-11.0 [facility] Comment on above: Result Comment: This specimen has been REJECTED due to Laboratory criteria:Contaminated/Leaked.[facility] has been notified of need of recollection.01/10/25408 Eliazar R Mancia Performed By: #### L 100.0100, L500.4050 ####[facility] [address] [place], [address] CL Normal 98-108 [facility] Comment on above: Result Comment: This specimen has been REJECTED due to Laboratory criteria:Contaminated/Leaked.[facility] has been notified of need of recollection.01/10/25408 Eliazar R Mancia Performed By: #### L 100.0100, L500.4050 ####[facility] [address] [place], [address] CO2 Normal 21.0-32.0 [facility] Comment on above: Result Comment: This specimen has been REJECTED due to Laboratory criteria:Contaminated/Leaked.[facility] has been notified of need of recollection.01/10/25408 Eliazar R Mancia Performed By: #### L 100.0100, L500.4050 ####[facility] [address] [place], [address] CREAT,SERUM Normal 0.70-1.20 [facility] Comment on above: Result Comment: This specimen has been REJECTED due to Laboratory criteria:Contaminated/Leaked.[facility] has been notified of need of recollection.01/10/25408 Eliazar R Mancia Performed By: #### L 100.0100, L500.4050 ####[facility] [address] [place], [address] eGFR Normal >60 [facility] Comment on above: Result Comment: This specimen has been REJECTED due to Laboratory criteria:Contaminated/Leaked.[facility] has been notified of need of recollection.01/10/25408 Eliazar R Mancia Performed By: #### L 100.0100, L500.4050 ####[facility] [address] [place], [address] GAP Normal 5-15 [facility] Comment on above: Result Comment: This specimen has been REJECTED due to Laboratory criteria:Contaminated/Leaked.[facility] has been notified of need of recollection.01/10/25408 Eliazar R Mancia Performed By: #### L 100.0100, L500.4050 ####[facility] [address] [place], [address] GLU Normal 70-99 [facility] Comment on above: Result Comment: This specimen has been REJECTED due to Laboratory criteria:Contaminated/Leaked.[facility] has been notified of need of recollection.01/10/25408 Eliazar R Mancia Performed By: #### L 100.0100, L500.4050 ####[facility] [address] [place], [address] Potassium Normal 3.3-5.1 [facility] Comment on above: Result Comment: This specimen has been REJECTED due to Laboratory criteria:Contaminated/Leaked.[facility] has been notified of need of recollection.01/10/25408 Eliazar R Mancia Performed By: #### L 100.0100, L500.4050 ####[facility] [address] [place], [address] T BILI Normal 0.00-1.30 [facility] Comment on above: Result Comment: This specimen has been REJECTED due to Laboratory criteria:Contaminated/Leaked.[facility] has been notified of need of recollection.01/10/25408 Eliazar R Mancia Performed By: #### L 100.0100, L500.4050 ####[facility] [address] [place], [address] T PROT Normal 5.9-8.4 [facility] Comment on above: Result Comment: This specimen has been REJECTED due to Laboratory criteria:Contaminated/Leaked.[facility] has been notified of need of recollection.01/10/25408 Eliazar R Mancia Performed By: #### L 100.0100, L500.4050 ####[facility] [address] [place], [address] Comprehensive Metabolic Profil Normal 133-145 [facility] Comment on above: Result Comment: This specimen has been REJECTED due to Laboratory criteria:Contaminated/Leaked.[facility] has been notified of need of recollection.01/10/25408 Eliazar R Mancia Performed By: #### L 100.0100, L500.4050 ####[facility] [address] [place], [address] Magnesiumon 01-10-2025 Magnesium [Mass/Vol] 1.4 mg/dL Low 1.5-2.2 [facility] Comment on above: Order Comment: REDRA W. PREVIOUS SPECIMEN REJECTED DUE TOCONTAMINATION. 01/10/25409 Eliazar R Mancia. Performed By: #### L 500.4050, L501.5200, L501.2300 ####[facility] [address] [place], [address] Phosphoruson 01-10-2025 Phosphate [Mass/Vol] 3.5 mg/dL Normal 2.7-4.5 [facility] Comment on above: Order Comment: REDRA W. PREVIOUS SPECIMEN REJECTED DUE TOCONTAMINATION. 01/10/25409 Eliazar R Mancia. Performed By: #### L 500.4050, L501.5200, L501.2300 ####[facility] [address] [place], [address] Abdomen/Pelvis without Conto n 01-09-2025 Abdomen/Pelvis without Cont Normal [facility] Absolute lymphocyte countOrd ered By: Breann Mendez on 01-09-2025 Lymphocytes Auto (Unsp spec) [#/Vol] 0.95 10*3/uL 0.83-4.51 [facility] Ammoniaon 01-09-2025 Ammonia (P) [Moles/Vol] 61.1 umol/L High 16-60 [facility] Comment on above: Performed By: #### L 503.5510 ####[facility] [address] [place], [address] Anion gap in Serum or Plasma Ordered By: Breann Mendez on 01-09-2025 Anion gap [Moles/Vol] 13 mmol/L 5-15 [facility] Automated lymphocyte count a s percentage of total leukocytesOrdered By: Breann Mendez on 01-09-2025 Lymphocytes/100 WBC Auto (Unsp spec) 7.2 % Low 19-41 [facility] BUN/creatinine ratioOrdered By: Breann Mendez on 01-09-2025 Urea nitrogen/Creatinine [Mass ratio] 13.4 mg/mg 10-20 [facility] Basic Metabolic Profile (BMP )on 01-09-2025 BUN/CRE 13.8 RATIO Normal 10-20 [facility] Comment on above: Performed By: #### L 506.1001, L500.2500 ####[facility] [address] [place], [address] Calcium [Mass/Vol] 7.7 mg/dL Normal 7.6-11.0 [facility] Comment on above: Performed By: #### L 506.1001, L500.2500 ####[facility] [address] [place], [address] Chloride [Moles/Vol] 106 mmol/L Normal 98-108 [facility] Comment on above: Performed By: #### L 506.1001, L500.2500 ####[facility] [address] [place], [address] CO2 [Moles/Vol] 14.1 mmol/L Low 21.0-32.0 [facility] Comment on above: Performed By: #### L 506.1001, L500.2500 ####[facility] [address] [place], [address] Creatinine [Mass/Vol] 1.78 mg/dL High 0.70-1.20 [facility] Comment on above: Performed By: #### L 506.1001, L500.2500 ####[facility] [address] [place], [address] ECRCL 50.08 ml/min Normal 50-250 [facility] Comment on above: Performed By: #### L 506.1001, L500.2500 ####[facility] [address] [place], [address] GAP 11 Normal 5-15 [facility] Comment on above: Performed By: #### L 506.1001, L500.2500 ####[facility] [address] [place], [address] GFR/1.73 sq M.predicted among non-blacks MDRD (S/P/Bld) [Vol rate/Area] 44 mL/min/{1.73_m2} Low >60 [facility] Comment on above: Result Comment: mL/m in/1.73m2 CKD-EPI Creatinine Equation (2020) Performed By: #### L 506.1001, L500.2500 ####[facility] [address] [place], [address] Glucose [Mass/Vol] 119 mg/dL High 70-99 [facility] Comment on above: Performed By: #### L 506.1001, L500.2500 ####[facility] [address] [place], [address] Potassium [Moles/Vol] 3.7 mmol/L Normal 3.3-5.1 [facility] Comment on above: Performed By: #### L 506.1001, L500.2500 ####[facility] [address] [place], [address] Sodium [Moles/Vol] 132 mmol/L Low 133-145 [facility] Comment on above: Performed By: #### L 506.1001, L500.2500 ####[facility] [address] [place], [address] Urea nitrogen [Mass/Vol] 25 mg/dL High 4-19 [facility] Comment on above: Performed By: #### L 506.1001, L500.2500 ####[facility] [address] [place], [address] Basophil percentageOrdered B y: Remus Ungur on 01-09-2025 Basophils/100 WBC (Bld) 0.4 % 0-1 [facility] Bedside Glucoseon 01-09-2025 FINGERSTICK GLU 143 mg/dL High 74-106 [facility] Comment on above: Result Comment: BRISA GEMENT OF PATIENT CARE PER NURSING PROTOCOL Performed By: #### L 501.080 ####[facility] [address] [place], [address] FINGERSTICK GLU 99 mg/dL Normal 74-106 [facility] Comment on above: Result Comment: BRISA GEMENT OF PATIENT CARE PER NURSING PROTOCOL Performed By: #### L 501.080 ####[facility] [address] [place], [address] Bilirubin Test strip Ql (U)O rdered By: Remus Ungur on 01-09-2025 Bilirubin Ql (U) 1 mg/dL High Negative [facility] Bilirubin, totalOrdered By: Remus Ungur on 01-09-2025 Bilirubin [Mass/Vol] 1.15 mg/dL 0.00-1.30 [facility] Blood cultureOrdered By: Ramona Mendez on 01-09-2025 Bacteria identified Cx Nom (Bld) No growth in 5 days. [facility] Bacteria identified Cx Nom (Bld) No growth in 5 days. [facility] CBC W/Diff, Automatedon Absolute Lymph 0.95 X10 3/uL Normal 0.83-4.51 [facility] Comment on above: Performed By: #### L 503.6005, L100.0100, L500.4050 ####[facility] [address] [place], [address] Absolute Neut 10.6 X10 3/uL High 2.0-7.7 [facility] Comment on above: Performed By: #### L 503.6005, L100.0100, L500.4050 ####[facility] [address] [place], [address] Basophils/100 WBC (Bld) 0.4 % Normal 0-1 [facility] Comment on above: Performed By: #### L 503.6005, L100.0100, L500.4050 ####[facility] [address] [place], [address] Eosinophils/100 WBC (Bld) 4.2 % Normal 0-5 [facility] Comment on above: Performed By: #### L 503.6005, L100.0100, L500.4050 ####[facility] [address] [place], [address] Erythrocyte distribution width (RBC) [Ratio] 18.1 % High 11.6-14.6 [facility] Comment on above: Performed By: #### L 503.6005, L100.0100, L500.4050 ####[facility] [address] [place], [address] Hematocrit (Bld) [Volume fraction] 24.3 % Low 40-54 [facility] Comment on above: Performed By: #### L 503.6005, L100.0100, L500.4050 ####[facility] [address] [place], [address] Hemoglobin (Bld) [Mass/Vol] 7.9 g/dL Low 13.0-16.5 [facility] Comment on above: Performed By: #### L 503.6005, L100.0100, L500.4050 ####[facility] [address] [place], [address] IG% 0.900 Normal 0.0-0.9 [facility] Comment on above: Result Comment: IG% - Immature Granulocytes (promyelocytes, myelocytes andmetamyelocytes) > 1% indicates that a LEFT SHIFT is Present. Performed By: #### L 503.6005, L100.0100, L500.4050 ####[facility] [address] [place], [address] Lymphocytes/100 WBC (Bld) 7.2 % Low 19-41 [facility] Comment on above: Performed By: #### L 503.6005, L100.0100, L500.4050 ####[facility] [address] [place], [address] MCH (RBC) [Entitic mass] 29.4 pg Normal 27.0-32.0 [facility] Comment on above: Performed By: #### L 503.6005, L100.0100, L500.4050 ####[facility] [address] [place], [address] MCHC (RBC) [Mass/Vol] 32.5 g/dL Normal 32-36 [facility] Comment on above: Performed By: #### L 503.6005, L100.0100, L500.4050 ####[facility] [address] [place], [address] MCV (RBC) [Entitic vol] 90.3 fL Normal 80-94 [facility] Comment on above: Performed By: #### L 503.6005, L100.0100, L500.4050 ####[facility] [address] [place], [address] Monocytes/100 WBC (Bld) 6.7 % Normal 0-10 [facility] Comment on above: Performed By: #### L 503.6005, L100.0100, L500.4050 ####[facility] [address] [place], [address] Neutrophils/100 WBC (Bld) 80.6 % High 47-70 [facility] Comment on above: Performed By: #### L 503.6005, L100.0100, L500.4050 ####[facility] [address] [place], [address] Nucleated RBC (Bld) [#/Vol] 0 10*3/uL Normal 0-5 [facility] Comment on above: Performed By: #### L 503.6005, L100.0100, L500.4050 ####[facility] [address] [place], [address] Platelet mean volume (Bld) [Entitic vol] 11.7 fL Normal 6.2-12.0 [facility] Comment on above: Performed By: #### L 503.6005, L100.0100, L500.4050 ####[facility] [address] [place], [address] Platelets (Bld) [#/Vol] 114 10*3/uL Low 150-450 [facility] Comment on above: Performed By: #### L 503.6005, L100.0100, L500.4050 ####[facility] [address] [place], [address] RBC (Bld) [#/Vol] 2.69 10*6/uL Low 4.6-6.2 [facility] Comment on above: Performed By: #### L 503.6005, L100.0100, L500.4050 ####[facility] [address] [place], [address] RDW SD 57.5 fl High 35.1-43.9 [facility] Comment on above: Performed By: #### L 503.6005, L100.0100, L500.4050 ####[facility] [address] [place], [address] WBC (Bld) [#/Vol] 13.2 10*3/uL High 4.4-11.0 [facility] Comment on above: Performed By: #### L 503.6005, L100.0100, L500.4050 ####[facility] [address] [place], [address] CO2 (BldV) [Moles/Vol]Ordere d By: Yaritza Leo on 01-09-2025 CO2 [Moles/Vol] 15 mmol/L Low 23-33 [facility] CPK Total, Creatine Kinaseon 01-09-2025 CPK TOTAL 34 U/L Normal 24-195 [facility] Comment on above: Performed By: #### L 501.3620 ####[facility] [address] [place], [address] Carbon dioxide, total [Moles /volume] in Central venous bloodOrdered By: Breann Mendez on 01-09-2025 CO2 [Moles/Vol] 13.6 mmol/L Low 21.0-32.0 [facility] Chloride assayOrdered By: Josselyn Mendez on 01-09-2025 Chloride [Moles/Vol] 103 mmol/L 98-108 [facility] Comprehensive Metabolic Prof ilon 01-09-2025 Albumin [Mass/Vol] 2.4 g/dL Low 3.5-5.0 [facility] Comment on above: Performed By: #### L 503.6005, L100.0100, L500.4050 ####[facility] [address] [place], [address] Albumin/Globulin [Mass ratio] 0.8 {ratio} Low 0.9-2.4 [facility] Comment on above: Performed By: #### L 503.6005, L100.0100, L500.4050 ####[facility] [address] [place], [address] ALK PHOS 196 U/L High 40-129 [facility] Comment on above: Performed By: #### L 503.6005, L100.0100, L500.4050 ####[facility] [address] [place], [address] ALT [Catalytic activity/Vol] 42 U/L Normal <=46 [facility] Comment on above: Performed By: #### L 503.6005, L100.0100, L500.4050 ####[facility] [address] [place], [address] AST [Catalytic activity/Vol] 68 U/L High <=37 [facility] Comment on above: Performed By: #### L 503.6005, L100.0100, L500.4050 ####[facility] [address] [place], [address] Bilirubin [Mass/Vol] 1.15 mg/dL Normal 0.00-1.30 [facility] Comment on above: Performed By: #### L 503.6005, L100.0100, L500.4050 ####[facility] [address] [place], [address] BUN/CRE 13.4 RATIO Normal 10-20 [facility] Comment on above: Performed By: #### L 503.6005, L100.0100, L500.4050 ####[facility] [address] [place], [address] Calcium [Mass/Vol] 8.4 mg/dL Normal 7.6-11.0 [facility] Comment on above: Performed By: #### L 503.6005, L100.0100, L500.4050 ####[facility] [address] [place], [address] Chloride [Moles/Vol] 103 mmol/L Normal 98-108 [facility] Comment on above: Performed By: #### L 503.6005, L100.0100, L500.4050 ####[facility] [address] [place], [address] CO2 [Moles/Vol] 13.6 mmol/L Low 21.0-32.0 [facility] Comment on above: Performed By: #### L 503.6005, L100.0100, L500.4050 ####[facility] [address] [place], [address] Creatinine [Mass/Vol] 1.77 mg/dL High 0.70-1.20 [facility] Comment on above: Performed By: #### L 503.6005, L100.0100, L500.4050 ####[facility] [address] [place], [address] ECRCL 50.61 ml/min Normal 50-250 [facility] Comment on above: Performed By: #### L 503.6005, L100.0100, L500.4050 ####[facility] [address] [place], [address] GAP 13 Normal 5-15 [facility] Comment on above: Performed By: #### L 503.6005, L100.0100, L500.4050 ####[facility] [address] [place], [address] GFR/1.73 sq M.predicted among non-blacks MDRD (S/P/Bld) [Vol rate/Area] 44 mL/min/{1.73_m2} Low >60 [facility] Comment on above: Result Comment: mL/m in/1.73m2 CKD-EPI Creatinine Equation (2020) Performed By: #### L 503.6005, L100.0100, L500.4050 ####[facility] [address] [place], [address] Globulin (S) [Mass/Vol] 2.9 g/dL Normal 2.2-4.2 [facility] Comment on above: Performed By: #### L 503.6005, L100.0100, L500.4050 ####[facility] [address] [place], [address] Glucose [Mass/Vol] 149 mg/dL High 70-99 [facility] Comment on above: Performed By: #### L 503.6005, L100.0100, L500.4050 ####[facility] [address] [place], [address] Potassium [Moles/Vol] 3.6 mmol/L Normal 3.3-5.1 [facility] Comment on above: Performed By: #### L 503.6005, L100.0100, L500.4050 ####[facility] [address] [place], [address] Sodium [Moles/Vol] 129 mmol/L Low 133-145 [facility] Comment on above: Performed By: #### L 503.6005, L100.0100, L500.4050 ####[facility] [address], [address] T PROT 5.3 g/dL Low 5.9-8.4 [facility] Comment on above: Performed By: #### L 503.6005, L100.0100, L500.4050 ####[facility] [address] [place], [address] Urea nitrogen [Mass/Vol] 24 mg/dL High 4-19 [facility] Comment on above: Performed By: #### L 503.6005, L100.0100, L500.4050 ####[facility] [address] [place], [address] Consultation - Intensiviston 01-09-2025 Consultation - Md Ophthalmologist Normal [facility] Emergency Department Summary on 01-09-2025 Emergency Department Summary Normal [facility] Eosinophil percentageOrdered By: Breann Mendez on 01-09-2025 Eosinophils/100 WBC (Bld) 4.2 % 0-5 [facility] Erythrocyte distribution wid th ratioOrdered By: Breann Mendez on 01-09-2025 Erythrocyte distribution width (RBC) [Ratio] 18.1 % High 11.6-14.6 [facility] Erythrocyte distribution wid th standard deviationOrdered By: Breann Mendez on 01-09-2025 Erythrocyte distribution width (RBC) [Ratio] 57.5 fl High 35.1-43.9 [facility] Glomerular filtration rate ( GFR) estimation/1.73 sq m using serum, plasma, or whole bOrdered By: Breann Mendez on 01-09-2025 GFR/1.73 sq M.predicted among non-blacks MDRD (S/P/Bld) [Vol rate/Area] 44 mL/min/{1.73_m2} Low >60 [facility] H AND P Exam - Hospitaliston 01-09-2025 H&P Exam - Hospitalist Normal [facility] Hematocrit Auto (Bld) [Volum e fraction]Ordered By: Breann Mendez on 01-09-2025 Hematocrit (Bld) [Volume fraction] 24.3 % Low 40-54 [facility] Hemoglobin measurementOrdere d By: Breann Mendez on 01-09-2025 Hemoglobin (Bld) [Mass/Vol] 7.9 g/dL Low 13.0-16.5 [facility] Immature granulocytes/100 WB C Auto (Bld)Ordered By: Breann Mendez on 01-09-2025 Immature granulocytes/100 WBC (Bld) 0.900 % 0.0-0.9 [facility] Ketones Test strip Ql (U)Ord ered By: Remus Vanessa on 01-09-2025 Ketones Ql (U) 5 mg/dl High Negative [facility] Lactic Acidon 01-09-2025 Lactate [Moles/Vol] 2.4 mmol/L Invalid Interpretation Code 0.0-2.0 [facility] Comment on above: Result Comment: Crit ical Result(s) Called at: 1829 by:??Yanet RENDON to Kal. Results read back by same. Performed By: #### L 503.6005 ####[facility] [address] [place], [place], [address] Lactate [Moles/Vol] 3.1 mmol/L Invalid Interpretation Code 0.0-2.0 [facility] Comment on above: Order Comment: Y Result Comment: Crit ical Result(s) Called at 1108: by: AL SANZ. ??Results read back by same. Performed By: #### L 503.6005, L100.0100, L500.4050 ####[facility] [address] [place], [place], [address] M R Staph Aureus DNA by PCRo n 01-09-2025 MRSA DNA ASSAY Negative Normal Negative [facility] Comment on above: Performed By: #### L 8200.1000 ####[facility] [address] [place], [place], [address] MCV (mean corpuscular volume ) determinationOrdered By: Breann Mendez on 01-09-2025 MCV (RBC) [Entitic vol] 90.3 fL 80-94 [facility] Mean corpuscular hemoglobin (MCH) determinationOrdered By: Breann Mendez on 01-09-2025 MCH (RBC) [Entitic mass] 29.4 pg 27.0-32.0 [facility] Monocyte percentageOrdered B y: Breann Mendez on 01-09-2025 Monocytes/100 WBC (Bld) 6.7 % 0-10 [facility] Mucus LM Ql (Urine sed)Order ed By: Breann Mendez on 01-09-2025 Mucus Ql (Urine sed) 0 SEEN /hpf [facility] Neutrophil percentageOrdered By: Breann Mendez on 01-09-2025 Neutrophils/100 WBC (Bld) 80.6 % High 47-70 [facility] Nitrite Test strip Ql (U)Ord ered By: Breann Mendez on 01-09-2025 Nitrite Ql (U) Negative Negative [facility] No Panel InformationOrdered By: Yaritza Leo on 01-09-2025 TRAMAINE [facility] Not entered [facility] No Panel InformationOrdered By: Breann Mendez on 01-09-2025 68 U/L High <38 [facility] Platelet countOrdered By: Josselyn Mendez on 01-09-2025 Platelets (Bld) [#/Vol] 114 10*3/uL Low 150-450 [facility] Potassium measurement (mass/ volume)Ordered By: Breann Mendez on 01-09-2025 Potassium (Unsp spec) [Mass/Vol] 3.6 mmol/L 3.3-5.1 [facility] Protein Test strip Ql (U)Ord ered By: Breann Mendez on 01-09-2025 Protein Ql (U) 500 mg/dl High Negative [facility] RBC Auto (Bld) [#/Vol]Ordere d By: Breann Mendez on 01-09-2025 RBC (Bld) [#/Vol] 2.69 10*6/uL Low 4.6-6.2 [facility] Serum creatinine measurement (mass/volume)Ordered By: Breann Mendez on 01-09-2025 Creatinine [Mass/Vol] 1.77 mg/dL High 0.70-1.20 [facility] Serum globulin measurementOr dered By: Breann Mendez on 01-09-2025 Globulin (S) [Mass/Vol] 2.9 g/dL 2.2-4.2 [facility] Serum glucose measurement (m ass/volume)Ordered By: Breann Mendez on 01-09-2025 Glucose [Mass/Vol] 149 mg/dL High 70-99 [facility] Serum or plasma alanine thomas otransferase (ALT) measurementOrdered By: Breann Mendez on 01-09-2025 ALT [Catalytic activity/Vol] 42 U/L <47 [facility] Serum or plasma albumin roosevelt urement (mass/volume)Ordered By: Breann Mendez on 01-09-2025 Albumin [Mass/Vol] 2.4 g/dL Low 3.5-5.0 [facility] Serum or plasma albumin/glob ulin mass ratioOrdered By: Breann Mendez on 01-09-2025 Albumin/Globulin [Mass ratio] 0.8 {ratio} Low 0.9-2.4 [facility] Serum or plasma alkaline kendrick sphatase measurementOrdered By: Breann Mendez on 01-09-2025 ALP [Catalytic activity/Vol] 196 U/L High 40-129 [facility] Serum or plasma calcium roosevelt urement (mass/volume)Ordered By: Breann Mendez on 01-09-2025 Calcium [Mass/Vol] 8.4 mg/dL 7.6-11.0 [facility] Serum or plasma creatine kin ase activityOrdered By: Yaritza Leo on 01-09-2025 CK [Catalytic activity/Vol] 34 U/L 24-195 [facility] Serum or plasma urea nitroge n measurement (mass/volume)Ordered By: Breann Mendez on 01-09-2025 Urea nitrogen [Mass/Vol] 24 mg/dL High 4-19 [facility] Sodium levelOrdered By: Veena Mendez on 01-09-2025 Sodium [Moles/Vol] 129 mmol/L Low 133-145 [facility] Squamous epithelial cells de tection in urine sediment by light microscopyOrdered By: Breann Mendez on 01-09-2025 Epithelial cells.squamous LM Ql (Urine sed) 0-5 SEEN /hpf 0-5 [facility] Total proteinOrdered By: Ramona Mendez on 01-09-2025 Protein [Mass/Vol] 5.3 g/dL Low 5.9-8.4 [facility] Urinalysis, Completeon 01-09 EPI,SQUAMOUS 0-5 SEEN Normal 0-5 [facility] Comment on above: Order Comment: COLOR OF URINE MAY AFFECT DIPSTICK RESULTS.CLEAN CATCH Performed By: #### L 400.0001 ####[facility] [address] [place], [address] RBC > 100 SEEN Normal 0-5 [facility] Comment on above: Order Comment: COLOR OF URINE MAY AFFECT DIPSTICK RESULTS.CLEAN CATCH Performed By: #### L 400.0001 ####[facility] [address] [place], [address] WBC 50-100 SEEN Normal 0-5 [facility] Comment on above: Order Comment: COLOR OF URINE MAY AFFECT DIPSTICK RESULTS.CLEAN CATCH Performed By: #### L 400.0001 ####[facility] [address] [place], [address] BACTERIA 0 SEEN Normal None Seen [facility] Comment on above: Order Comment: COLOR OF URINE MAY AFFECT DIPSTICK RESULTS.CLEAN CATCH Performed By: #### L 400.0001 ####[facility] [address] [place], [address] Mucus Ql (Urine sed) 0 SEEN Normal [facility] Comment on above: Order Comment: COLOR OF URINE MAY AFFECT DIPSTICK RESULTS.CLEAN CATCH Performed By: #### L 400.0001 ####[facility] [address] [place], [address] Urine clarityOrdered By: Rem us Ungur on 01-09-2025 Clarity (U) Turbid Clear [facility] Urine color determinationOrd ered By: Remus Ungbrandon on 01-09-2025 Color (U) Red Yellow [facility] Urine cultureOrdered By: Rem us Ungur on 01-09-2025 Bacteria identified Cx Nom (U) Yeast, not Mary albicans Abnormal [facility] Urine glucose detectionOrder ed By: Remus Ungbrandon on 01-09-2025 Glucose Ql (U) Normal mg/dl Normal [facility] Urine leukocyte esterase det ection by dipstickOrdered By: Breann Mendez on 01-09-2025 Leukocyte esterase Test strip Ql (U) 500 /ul High Negative [facility] Urine pHOrdered By: Breann Landers gur on 01-09-2025 pH (U) 6.0 [pH] 5.0 - 8.0 [facility] Urine sediment bacteria coun t by microscopy (number/high power field)Ordered By: Breann Mendez on 01-09-2025 Bacteria LM.HPF (Urine sed) [#/Area] 0 /[HPF] None Seen [facility] Urine specific gravity measu rementOrdered By: Breann Mendez on 01-09-2025 Specific gravity (U) [Rel density] 1.015 1.002-1.030 [facility] Urine urobilinogen measureme ntOrdered By: Breann Mendez on 01-09-2025 Urobilinogen Ql (U) Normal mg/dl Normal [facility] Venous Blood Gason Blood Gas Type TRAMAINE Normal [facility] Comment on above: Performed By: #### L 0.0810 ####[facility] [address] [place], [address] CO2 [Moles/Vol] 15 mmol/L Low 23-33 [facility] Comment on above: Performed By: #### L 0.0810 ####[facility] [place] [address] [place], [address] HCO3 (Bld) [Moles/Vol] 14 mmol/L Low 22-26 [facility] Comment on above: Performed By: #### L 9000.0810 ####[facility] [address] [place], [address] O2 Delivery Dev Not entered [facility] Comment on above: Performed By: #### L 0.0810 ####[facility] [place] [address] [place], [address] SITE Not entered [facility] Comment on above: Performed By: #### L 0.0810 ####[facility] [place] [address] [place], [address] VBG BE -11 mmol/L Low -1.0-3.5 [facility] Comment on above: Performed By: #### L 9000.0810 ####[facility] [address] [place], [address] VBG pCO2 24.7 mmHg Low 41-51 [facility] [place] Comment on above: Performed By: #### L 9000.0810 ####[facility] [address] [place], [address] VBG pH 7.36 Normal 7.32-7.42 [facility] [place] Comment on above: Performed By: #### L 9000.0810 ####[facility] [address] [place], [address] VBG PO2 49 mmHg High 25-40 [facility] [place] Comment on above: Performed By: #### L 9000.0810 ####[facility] [address] [place], [address] VBG SO2 84 High 50-70 [facility] Comment on above: Performed By: #### L 9000.0810 ####[facility] [address] [place], [address] Venous blood ammonia measure mentOrdered By: Lupillo Robbins on 01-09-2025 Ammonia (P) [Moles/Vol] 61.1 umol/L High 16-60 [facility] Venous blood base excess wei surementOrdered By: Yaritza Leo on 01-09-2025 Base excess Calc (BldV) [Moles/Vol] -11 mmol/L Low -1.0-3.5 [facility] Venous blood bicarbonate wei surementOrdered By: Yaritza Leo on 01-09-2025 HCO3 (Bld) [Moles/Vol] 14 mmol/L Low 22-26 [facility] Venous blood pH measurementO rdered By: Yaritza Leo on 01-09-2025 pH (BldV) 7.36 [pH] 7.32-7.42 [facility] [place] Venous blood partial pressur e of carbon dioxide measurementOrdered By: Yaritza Leo on 01-09-2025 CO2 (BldV) [Partial pressure] 24.7 mm[Hg] Low 41-51 [facility] [place] Venous blood partial pressur e of oxygen measurementOrdered By: Yaritza Leo on 01-09-2025 Oxygen (BldV) [Partial pressure] 49 mm[Hg] High 25-40 [facility] Vitamin D,25 Hydroxyon 01-09 Vitamin D 25-OH 10.0 ng/mL Low 30-100 [facility] [place] Comment on above: Result Comment: Sarah min D StatusDeficiency: <20 ng/mL (50nmol/L)Insufficiency: 20-30 ng/mL (50-75 nmol/L)Sufficiency: 30-100 ng/mL (75-250 nmol/L)Toxicity: >100 ng/mL (>250 nmol/L) Performed By: #### L 506.1001, L500.2500 ####[facility] [address] [place], [address] White blood cell (WBC) count Ordered By: Breann Mendez on 01-09-2025 WBC (Bld) [#/Vol] 13.2 10*3/uL High 4.4-11.0 [facility] White blood cell countOrdere d By: Breann Mendez on 01-09-2025 White blood cell count 50-100 SEEN /hpf 0-5 [facility] Basic Metabolic Profile (BMP )on 01-07-2025 BUN Normal 4-19 [facility] [place] Comment on above: Result Comment: Canc elled via OM: Order cancelled - Patient discharged Performed By: #### L 500.2500, L100.0100 ####[facility] [address] [place], [address] BUN/CRE Normal 10-20 [facility] Comment on above: Result Comment: Canc elled via OM: Order cancelled - Patient discharged Performed By: #### L 500.2500, L100.0100 ####[facility] [address] [place], [address] Calcium Normal 7.6-11.0 [facility] Comment on above: Result Comment: Canc elled via OM: Order cancelled - Patient discharged Performed By: #### L 500.2500, L100.0100 ####[facility] [address] [place], [address] CL Normal 98-108 [facility] Comment on above: Result Comment: Canc elled via OM: Order cancelled - Patient discharged Performed By: #### L 500.2500, L100.0100 ####[facility] [place] [address] [place], [address] CO2 Normal 21.0-32.0 [facility] Comment on above: Result Comment: Canc elled via OM: Order cancelled - Patient discharged Performed By: #### L 500.2500, L100.0100 ####[facility] [place] [address] [place], [address] CREAT,SERUM Normal 0.70-1.20 [facility] [place] Comment on above: Result Comment: Canc elled via OM: Order cancelled - Patient discharged Performed By: #### L 500.2500, L100.0100 ####[facility] [address] [place], [address] eGFR Normal >60 [facility] Comment on above: Result Comment: Canc elled via OM: Order cancelled - Patient discharged Performed By: #### L 500.2500, L100.0100 ####[facility] [place] [address] [place], [address] GAP Normal 5-15 [facility] Comment on above: Result Comment: Canc elled via OM: Order cancelled - Patient discharged Performed By: #### L 500.2500, L100.0100 ####[facility] [address] [place], [address] GLU Normal 70-99 [facility] [place] Comment on above: Result Comment: Canc elled via OM: Order cancelled - Patient discharged Performed By: #### L 500.2500, L100.0100 ####[facility] [place] [address] [place], [address] Potassium Normal 3.3-5.1 [facility] Comment on above: Result Comment: Canc elled via OM: Order cancelled - Patient discharged Performed By: #### L 500.2500, L100.0100 ####[facility] [address] [place], [address] Basic Metabolic Profile (BMP) Normal 133-145 [facility] [place] Comment on above: Result Comment: Canc elled via OM: Order cancelled - Patient discharged Performed By: #### L 500.2500, L100.0100 ####[facility] [address] [place], [address] CBC W/Diff, Automatedon 06-0 6-2024 Absolute Neut Normal 2.0-7.7 [facility] [place] Comment on above: Result Comment: Canc elled via OM: Order cancelled - Patient discharged Performed By: #### L 500.2500, L100.0100 ####[facility] [address] [place], [address] HCT Normal 40-54 [facility] Comment on above: Result Comment: Canc elled via OM: Order cancelled - Patient discharged Performed By: #### L 500.2500, L100.0100 ####[facility] [address] [place], [address] HGB Normal 13.0-16.5 [facility] Comment on above: Result Comment: Canc elled via OM: Order cancelled - Patient discharged Performed By: #### L 500.2500, L100.0100 ####[facility] [address] [place], [address] MCH Normal 27.0-32.0 [facility] Comment on above: Result Comment: Canc elled via OM: Order cancelled - Patient discharged Performed By: #### L 500.2500, L100.0100 ####[facility] [address] [place], [address] MCHC Normal 32-36 [facility] [place] Comment on above: Result Comment: Canc elled via OM: Order cancelled - Patient discharged Performed By: #### L 500.2500, L100.0100 ####[facility] [address] [place], [address] MCV Normal 80-94 [facility] Comment on above: Result Comment: Canc elled via OM: Order cancelled - Patient discharged Performed By: #### L 500.2500, L100.0100 ####[facility] [address] [place], [address] NEUT% Normal 47-70 [facility] Comment on above: Result Comment: Canc elled via OM: Order cancelled - Patient discharged Performed By: #### L 500.2500, L100.0100 ####[facility] [address] [place], [address] PLT Normal 150-450 [facility] Comment on above: Result Comment: Canc elled via OM: Order cancelled - Patient discharged Performed By: #### L 500.2500, L100.0100 ####[facility] [address] [place], [address] RBC Normal 4.6-6.2 [facility] Comment on above: Result Comment: Canc elled via OM: Order cancelled - Patient discharged Performed By: #### L 500.2500, L100.0100 ####[facility] [address] [place], [address] RDW CV Normal 11.6-14.6 [facility] Comment on above: Result Comment: Canc elled via OM: Order cancelled - Patient discharged Performed By: #### L 500.2500, L100.0100 ####[facility] [address] [place], [address] RDW SD Normal 35.1-43.9 [facility] Comment on above: Result Comment: Canc elled via OM: Order cancelled - Patient discharged Performed By: #### L 500.2500, L100.0100 ####[facility] [address] [place], [address] WBC Normal 4.4-11.0 [facility] Comment on above: Result Comment: Canc elled via OM: Order cancelled - Patient discharged Performed By: #### L 500.2500, L100.0100 ####[facility] [address] [place], [address] Basic Metabolic Profile (BMP )on 01-06-2025 BUN Normal 4-19 [facility] [place] Comment on above: Result Comment: Canc elled via OM: Order cancelled - Patient discharged Performed By: #### L 100.0100, L500.2500 ####[facility] [address] [place], [address] BUN/CRE Normal 10-20 [facility] Comment on above: Result Comment: Canc elled via OM: Order cancelled - Patient discharged Performed By: #### L 100.0100, L500.2500 ####[facility] [place] [address] [place], [address] Calcium Normal 7.6-11.0 [facility] Comment on above: Result Comment: Canc elled via OM: Order cancelled - Patient discharged Performed By: #### L 100.0100, L500.2500 ####[facility] [address] [place], [address] CL Normal 98-108 [facility] Comment on above: Result Comment: Canc elled via OM: Order cancelled - Patient discharged Performed By: #### L 100.0100, L500.2500 ####[facility] [place] [address], [address] CO2 Normal 21.0-32.0 [facility] Comment on above: Result Comment: Canc elled via OM: Order cancelled - Patient discharged Performed By: #### L 100.0100, L500.2500 ####[facility] [place] [address] [place], [address] CREAT,SERUM Normal 0.70-1.20 [facility] Comment on above: Result Comment: Canc elled via OM: Order cancelled - Patient discharged Performed By: #### L 100.0100, L500.2500 ####[facility] [address] [place], [address] eGFR Normal >60 [facility] [place] Comment on above: Result Comment: Canc elled via OM: Order cancelled - Patient discharged Performed By: #### L 100.0100, L500.2500 ####[facility] [address] [place], [address] GAP Normal 5-15 [facility] Comment on above: Result Comment: Canc elled via OM: Order cancelled - Patient discharged Performed By: #### L 100.0100, L500.2500 ####[facility] [address] [place], [address] GLU Normal 70-99 [facility] Comment on above: Result Comment: Canc elled via OM: Order cancelled - Patient discharged Performed By: #### L 100.0100, L500.2500 ####[facility] [address] [place], [address] Potassium Normal 3.3-5.1 [facility] Comment on above: Result Comment: Canc elled via OM: Order cancelled - Patient discharged Performed By: #### L 100.0100, L500.2500 ####[facility] [address] [place], [address] Basic Metabolic Profile (BMP) Normal 133-145 [facility] Comment on above: Result Comment: Canc elled via OM: Order cancelled - Patient discharged Performed By: #### L 100.0100, L500.2500 ####[facility] [address] [place], [address] CBC W/Diff, Automatedon 06-0 -2024 Absolute Neut Normal 2.0-7.7 [facility] Comment on above: Result Comment: Canc elled via OM: Order cancelled - Patient discharged Performed By: #### L 100.0100, L500.2500 ####[facility] [address] [place], [address] HCT Normal 40-54 [facility] Comment on above: Result Comment: Canc elled via OM: Order cancelled - Patient discharged Performed By: #### L 100.0100, L500.2500 ####[facility] [address] [place], [address] HGB Normal 13.0-16.5 [facility] Comment on above: Result Comment: Canc elled via OM: Order cancelled - Patient discharged Performed By: #### L 100.0100, L500.2500 ####[facility] [address] [place], [address] MCH Normal 27.0-32.0 [facility] Comment on above: Result Comment: Canc elled via OM: Order cancelled - Patient discharged Performed By: #### L 100.0100, L500.2500 ####[facility] [address] [place], [address] MCHC Normal 32-36 [facility] Comment on above: Result Comment: Canc elled via OM: Order cancelled - Patient discharged Performed By: #### L 100.0100, L500.2500 ####[facility] [facility] [address] [place], [address] MCV Normal 80-94 [facility] Comment on above: Result Comment: Canc elled via OM: Order cancelled - Patient discharged Performed By: #### L 100.0100, L500.2500 ####[facility] [address] [place], [address] NEUT% Normal 47-70 [facility] Comment on above: Result Comment: Canc elled via OM: Order cancelled - Patient discharged Performed By: #### L 100.0100, L500.2500 ####[facility] [address] [place], [address] PLT Normal 150-450 [facility] Comment on above: Result Comment: Canc elled via OM: Order cancelled - Patient discharged Performed By: #### L 100.0100, L500.2500 ####[facility] [address] [place], [address] RBC Normal 4.6-6.2 [facility] Comment on above: Result Comment: Canc elled via OM: Order cancelled - Patient discharged Performed By: #### L 100.0100, L500.2500 ####[facility] [address] [place], [address] RDW CV Normal 11.6-14.6 [facility] Comment on above: Result Comment: Canc elled via OM: Order cancelled - Patient discharged Performed By: #### L 100.0100, L500.2500 ####[facility] [address] [place], [address] RDW SD Normal 35.1-43.9 [facility] Comment on above: Result Comment: Canc elled via OM: Order cancelled - Patient discharged Performed By: #### L 100.0100, L500.2500 ####[facility] [address] [place], [address] WBC Normal 4.4-11.0 [facility] Comment on above: Result Comment: Canc elled via OM: Order cancelled - Patient discharged Performed By: #### L 100.0100, L500.2500 ####[facility] [address] [place], [address] Absolute lymphocyte countOrd ered By: Hill Acuña on 01-05-2025 Lymphocytes Auto (Unsp spec) [#/Vol] 0.94 10*3/uL 0.83-4.51 [facility] Anion gap in Serum or Plasma Ordered By: Hill Acuña on 01-05-2025 Anion gap [Moles/Vol] 9 mmol/L 5-15 [facility] Automated lymphocyte count a s percentage of total leukocytesOrdered By: Hill Acuña on 01-05-2025 Lymphocytes/100 WBC Auto (Unsp spec) 13.4 % Low 19-41 [facility] BUN/creatinine ratioOrdered By: Hill Acuña on 01-05-2025 Urea nitrogen/Creatinine [Mass ratio] 11.9 mg/mg 10- [facility] Basic Metabolic Profile (BMP )on 01-05-2025 BUN/CRE 11.9 RATIO Normal -20 [facility] Comment on above: Performed By: #### L 100.0100, L500.2500 ####[facility] [address] [place], [address] Calcium [Mass/Vol] 7.9 mg/dL Normal 7.6-11.0 [facility] Comment on above: Performed By: #### L 100.0100, L500.2500 ####[facility] [address] [place], [address] Chloride [Moles/Vol] 101 mmol/L Normal 98-108 [facility] Comment on above: Performed By: #### L 100.0100, L500.2500 ####[facility] [address] [place], [address] CO2 [Moles/Vol] 18.5 mmol/L Low 21.0-32.0 [facility] Comment on above: Performed By: #### L 100.0100, L500.2500 ####[facility] [address] [place], [address] Creatinine [Mass/Vol] 0.95 mg/dL Normal 0.70-1.20 [facility] Comment on above: Performed By: #### L 100.0100, L500.2500 ####[facility] [address] [place], [address] ECRCL 95.07 ml/min Normal 50-250 [facility] Comment on above: Performed By: #### L 100.0100, L500.2500 ####[facility] [address] [place], [address] GAP 9 Normal 5-15 [facility] Comment on above: Performed By: #### L 100.0100, L500.2500 ####[facility] [address] [place], [address] GFR/1.73 sq M.predicted among non-blacks MDRD (S/P/Bld) [Vol rate/Area] 92 mL/min/{1.73_m2} Normal >60 [facility] Comment on above: Result Comment: mL/m in/1.73m2 CKD-EPI Creatinine Equation (2020) Performed By: #### L 100.0100, L500.2500 ####[facility] [address] [place], [address] Glucose [Mass/Vol] 356 mg/dL High 70-99 [facility] Comment on above: Performed By: #### L 100.0100, L500.2500 ####[facility] [address] [place], [address] Potassium [Moles/Vol] 3.6 mmol/L Normal 3.3-5.1 [facility] Comment on above: Performed By: #### L 100.0100, L500.2500 ####[facility] [address] [place], [address] Sodium [Moles/Vol] 128 mmol/L Low 133-145 [facility] Comment on above: Performed By: #### L 100.0100, L500.2500 ####[facility] [address] [place], [address] Urea nitrogen [Mass/Vol] 11 mg/dL Normal 4-19 [facility] Comment on above: Performed By: #### L 100.0100, L500.2500 ####[facility] [address] [place], [address] Basophil percentageOrdered B y: Hill Acuña on 01-05-2025 Basophils/100 WBC (Bld) 0.4 % 0-1 [facility] Bedside Glucoseon 01-05-2025 [place] GLU 163 mg/dL High 74-106 [facility] [place] Comment on above: Result Comment: BRISA GEMENT OF PATIENT CARE PER NURSING PROTOCOL Performed By: #### L 501.080 ####[facility] [place] [address] [place], [address] FINGERSTICK GLU 191 mg/dL High 74-106 [facility] [place] Comment on above: Result Comment: BRISA GEMENT OF PATIENT CARE PER NURSING PROTOCOL Performed By: #### L 501.080 ####[facility] [place] [address] [place], [address] FINGERSTICK GLU 307 mg/dL High 74-106 [facility] [place] Comment on above: Result Comment: BRISA GEMENT OF PATIENT CARE PER NURSING PROTOCOL Performed By: #### L 501.080 ####[facility] [place] [address] [place], [address] CBC W/Diff, Automatedon Absolute Lymph 0.94 X10 3/uL Normal 0.83-4.51 [facility] [place] Comment on above: Performed By: #### L 100.0100, L500.2500 ####[facility] [place] [address] [place], [address] Absolute Neut 4.8 X10 3/uL Normal 2.0-7.7 [facility] [place] Comment on above: Performed By: #### L 100.0100, L500.2500 ####[facility] [place] [address] [place], [address] Basophils/100 WBC (Bld) 0.4 % Normal 0-1 [facility] Comment on above: Performed By: #### L 100.0100, L500.2500 ####[facility] [place] [address] [place], [address] Eosinophils/100 WBC (Bld) 5.1 % High 0-5 [facility] [place] Comment on above: Performed By: #### L 100.0100, L500.2500 ####[facility] [place] [address] [place], [address] Erythrocyte distribution width (RBC) [Ratio] 16.4 % High 11.6-14.6 [facility] [place] Comment on above: Performed By: #### L 100.0100, L500.2500 ####[facility] [place] [address] [place], [address] Hematocrit (Bld) [Volume fraction] 22.3 % Low 40-54 [facility] [place] Comment on above: Performed By: #### L 100.0100, L500.2500 ####[facility] [place] [address] [place], [address] Hemoglobin (Bld) [Mass/Vol] 7.5 g/dL Low 13.0-16.5 [facility] [place] Comment on above: Performed By: #### L 100.0100, L500.2500 ####[facility] [place] [address] [place], [address] IG% 0.400 Normal 0.0-0.9 [facility] [place] Comment on above: Result Comment: IG% - Immature Granulocytes (promyelocytes, myelocytes andmetamyelocytes) > 1% indicates that a LEFT SHIFT is Present. Performed By: #### L 100.0100, L500.2500 ####[facility] [place] [address] [place], [address] Lymphocytes/100 WBC (Bld) 13.4 % Low 19-41 [facility] [place] Comment on above: Performed By: #### L 100.0100, L500.2500 ####[facility] [place] [address] [place], [address] MCH (RBC) [Entitic mass] 29.1 pg Normal 27.0-32.0 [facility] [place] Comment on above: Performed By: #### L 100.0100, L500.2500 ####[facility] [place] [address] [place], [address] MCHC (RBC) [Mass/Vol] 33.6 g/dL Normal 32-36 [facility] Comment on above: Performed By: #### L 100.0100, L500.2500 ####[facility] [place] [address] [place], [address] MCV (RBC) [Entitic vol] 86.4 fL Normal 80-94 [facility] Comment on above: Performed By: #### L 100.0100, L500.2500 ####[facility] [place] [address] [place], [address] Monocytes/100 WBC (Bld) 11.6 % High 0-10 [facility] Comment on above: Performed By: #### L 100.0100, L500.2500 ####[facility] [place] [address] [place], [address] Neutrophils/100 WBC (Bld) 69.1 % Normal 47-70 [facility] [place] Comment on above: Performed By: #### L 100.0100, L500.2500 ####[facility] [place] [address] [place], [address] Nucleated RBC (Bld) [#/Vol] 0 10*3/uL Normal 0-5 [facility] [place] Comment on above: Performed By: #### L 100.0100, L500.2500 ####[facility] [place] [address] [place], [address] Platelet mean volume (Bld) [Entitic vol] 11.3 fL Normal 6.2-12.0 [facility] [place] Comment on above: Performed By: #### L 100.0100, L500.2500 ####[facility] [place] [address] [place], [address] Platelets (Bld) [#/Vol] 81 10*3/uL Low 150-450 [facility] Comment on above: Performed By: #### L 100.0100, L500.2500 ####[facility] [place] [address] [place], [address] RBC (Bld) [#/Vol] 2.58 10*6/uL Low 4.6-6.2 [facility] Comment on above: Performed By: #### L 100.0100, L500.2500 ####[facility] [place] [address] [place], [address] RDW SD 51.8 fl High 35.1-43.9 [facility] [place] Comment on above: Performed By: #### L 100.0100, L500.2500 ####[facility] [place] [address] [place], [address] WBC (Bld) [#/Vol] 7.0 10*3/uL Normal 4.4-11.0 [facility] Comment on above: Performed By: #### L 100.0100, L500.2500 ####[facility] [place] [address] [place], [address] Carbon dioxide, total [Moles /volume] in Central venous bloodOrdered By: Hill Acuña on 01-05-2025 CO2 [Moles/Vol] 18.5 mmol/L Low 21.0-32.0 [facility] [place] Chloride assayOrdered By: Kvng Acuña on 01-05-2025 Chloride [Moles/Vol] 101 mmol/L 98-108 [facility] Eosinophil percentageOrdered By: Hill Acuña on 01-05-2025 Eosinophils/100 WBC (Bld) 5.1 % High 0-5 [facility] [place] Erythrocyte distribution wid th ratioOrdered By: Hill Acuña on 01-05-2025 Erythrocyte distribution width (RBC) [Ratio] 16.4 % High 11.6-14.6 [facility] [place] Erythrocyte distribution wid th standard deviationOrdered By: Hill Acuña on 01-05-2025 Erythrocyte distribution width (RBC) [Ratio] 51.8 fl High 35.1-43.9 [facility] [place] Glomerular filtration rate ( GFR) estimation/1.73 sq m using serum, plasma, or whole bOrdered By: Hill Acuña on 01-05-2025 GFR/1.73 sq M.predicted among non-blacks MDRD (S/P/Bld) [Vol rate/Area] 92 mL/min/{1.73_m2} >60 [facility] [place] Glucose measurement at [facility] deOrdered By: Hill Acuña on 01-05-2025 Glucose [Mass/Vol] 163 mg/dL High 74-106 [facility] Glucose [Mass/Vol] 191 mg/dL High 74-106 [facility] Hematocrit Auto (Bld) [Volum e fraction]Ordered By: Hill Acuña on 01-05-2025 Hematocrit (Bld) [Volume fraction] 22.3 % Low 40-54 [facility] [place] Hemoglobin measurementOrdere d By: Hill Acuña on 01-05-2025 Hemoglobin (Bld) [Mass/Vol] 7.5 g/dL Low 13.0-16.5 [facility] [place] Immature granulocytes/100 WB C Auto (Bld)Ordered By: Hill Acuña on 01-05-2025 Immature granulocytes/100 WBC (Bld) 0.400 % 0.0-0.9 [facility] [place] MCV (mean corpuscular volume ) determinationOrdered By: Hill Acuña on 01-05-2025 MCV (RBC) [Entitic vol] 86.4 fL 80-94 [facility] Mean corpuscular hemoglobin (MCH) determinationOrdered By: Hill Acuña on 01-05-2025 MCH (RBC) [Entitic mass] 29.1 pg 27.0-32.0 [facility] [place] Monocyte percentageOrdered B y: Hill Acuña on 01-05-2025 Monocytes/100 WBC (Bld) 11.6 % High 0-10 [facility] Neutrophil percentageOrdered By: Hill Acuña on 01-05-2025 Neutrophils/100 WBC (Bld) 69.1 % 47-70 [facility] [place] Platelet countOrdered By: Kvng Acuña on 01-05-2025 Platelets (Bld) [#/Vol] 81 10*3/uL Low 150-450 [facility] Potassium measurement (mass/ volume)Ordered By: Hill Acuña on 01-05-2025 Potassium (Unsp spec) [Mass/Vol] 3.6 mmol/L 3.3-5.1 [facility] [place] RBC Auto (Bld) [#/Vol]Ordere d By: Hill Acuña on 01-05-2025 RBC (Bld) [#/Vol] 2.58 10*6/uL Low 4.6-6.2 [facility] Serum creatinine measurement (mass/volume)Ordered By: Hill Acuña on 01-05-2025 Creatinine [Mass/Vol] 0.95 mg/dL 0.70-1.20 [facility] Serum glucose measurement (m ass/volume)Ordered By: Hill Acuña on 01-05-2025 Glucose [Mass/Vol] 356 mg/dL High 70-99 [facility] Serum or plasma calcium roosevelt urement (mass/volume)Ordered By: Hill Acuña on 01-05-2025 Calcium [Mass/Vol] 7.9 mg/dL 7.6-11.0 [facility] Serum or plasma urea nitroge n measurement (mass/volume)Ordered By: Hill Acuña on 01-05-2025 Urea nitrogen [Mass/Vol] 11 mg/dL 4-19 [facility] [place] Sodium levelOrdered By: Paulino Acuña on 01-05-2025 Sodium [Moles/Vol] 128 mmol/L Low 133-145 [facility] White blood cell (WBC) count Ordered By: Hill Acuña on 01-05-2025 WBC (Bld) [#/Vol] 7.0 10*3/uL 4.4-11.0 [facility] Bedside Glucoseon 01-04-2025 FINGERSTICK GLU 369 mg/dL High [address] [place] [address] Comment on above: Result Comment: RBISA GEMENT OF PATIENT CARE PER NURSING PROTOCOL Performed By: #### L 501.080 ####[facility] [place] [address] [facility] [address] FINGERSTICK GLU 320 mg/dL High [address] [place] [address] Comment on above: Result Comment: BRISA GEMENT OF PATIENT CARE PER NURSING PROTOCOL Performed By: #### L 501.080 ####[facility] [place] [address] [place], [address] FINGERSTICK GLU 256 mg/dL High [address] [place] [address] Comment on above: Result Comment: BRISA GEMENT OF PATIENT CARE PER NURSING PROTOCOL Performed By: #### L 501.080 ####[facility] [place] [address] [place], [address] FINGERSTICK GLU 331 mg/dL High [address] [place] [address] Comment on above: Result Comment: BRISA GEMENT OF PATIENT CARE PER NURSING PROTOCOL Performed By: #### L 501.080 ####[facility] [place] [address] [place], [address] Bilirubin, totalOrdered By: Hill Acuña on 01-04-2025 Bilirubin [Mass/Vol] 0.90 mg/dL 0.00-1.30 [facility] Blood manual differential co mment interpretation (narrative result)Ordered By: Hill Acuña on 01-04-2025 Manual differential comment Marco Antonio (Bld) [Interp] SCANNED [facility] [place] CBC-Complete Blood Cnt No Di ffon 01-04-2025 Erythrocyte distribution width (RBC) [Ratio] 17.0 % High 11.6-14.6 [facility] [place] Comment on above: Performed By: #### L 100.4500, L500.4050, L501.5200, L501.2300, L100.0500 ####[facility] [place] [address] [place], [address] Hematocrit (Bld) [Volume fraction] 24.6 % Low 40-54 [facility] [place] Comment on above: Performed By: #### L 100.4500, L500.4050, L501.5200, L501.2300, L100.0500 ####[facility] [place] [address] [place], [address] Hemoglobin (Bld) [Mass/Vol] 7.9 g/dL Low 13.0-16.5 [facility] [place] Comment on above: Performed By: #### L 100.4500, L500.4050, L501.5200, L501.2300, L100.0500 ####[facility] [place] [address] [place], [address] MCH (RBC) [Entitic mass] 29.2 pg Normal 27.0-32.0 [facility] [place] Comment on above: Performed By: #### L 100.4500, L500.4050, L501.5200, L501.2300, L100.0500 ####[facility] [place] [address] [place], [address] MCHC (RBC) [Mass/Vol] 32.1 g/dL Normal 32-36 [facility] Comment on above: Performed By: #### L 100.4500, L500.4050, L501.5200, L501.2300, L100.0500 ####[facility] [place] [address] [place], [address] MCV (RBC) [Entitic vol] 90.8 fL Normal 80-94 [facility] Comment on above: Performed By: #### L 100.4500, L500.4050, L501.5200, L501.2300, L100.0500 ####[facility] [place] [address] [place], [address] Platelet mean volume (Bld) [Entitic vol] 12.1 fL High 6.2-12.0 [facility] [place] Comment on above: Performed By: #### L 100.4500, L500.4050, L501.5200, L501.2300, L100.0500 ####[facility] [place] [address] [place], [address] Platelets (Bld) [#/Vol] 87 10*3/uL Low 150-450 [facility] Comment on above: Performed By: #### L 100.4500, L500.4050, L501.5200, L501.2300, L100.0500 ####[facility] [place] [address] [place], [address] RBC (Bld) [#/Vol] 2.71 10*6/uL Low 4.6-6.2 [facility] Comment on above: Performed By: #### L 100.4500, L500.4050, L501.5200, L501.2300, L100.0500 ####[facility] [place] [address] [place], [address] RDW SD 56.2 fl High 35.1-43.9 [facility] [place] Comment on above: Performed By: #### L 100.4500, L500.4050, L501.5200, L501.2300, L100.0500 ####[facility] [place] [address] [place], [address] WBC (Bld) [#/Vol] 6.4 10*3/uL Normal 4.4-11.0 [facility] Comment on above: Performed By: #### L 100.4500, L500.4050, L501.5200, L501.2300, L100.0500 ####[facility] [place] [address] [place], [address] Comprehensive Metabolic Prof ilon 01-04-2025 Albumin [Mass/Vol] 2.4 g/dL Low 3.5-5.0 [facility] Comment on above: Performed By: #### L 100.4500, L500.4050, L501.5200, L501.2300, L100.0500 ####[facility] [place] [address] [place], [address] Albumin/Globulin [Mass ratio] 0.9 {ratio} Normal 0.9-2.4 [facility] [place] Comment on above: Performed By: #### L 100.4500, L500.4050, L501.5200, L501.2300, L100.0500 ####[facility] [place] [address] [place], [address] ALK PHOS 171 U/L High 40-129 [facility] [place] Comment on above: Performed By: #### L 100.4500, L500.4050, L501.5200, L501.2300, L100.0500 ####[facility] [place] [address] [place], [address] ALT [Catalytic activity/Vol] 26 U/L Normal <=46 [facility] [place] Comment on above: Performed By: #### L 100.4500, L500.4050, L501.5200, L501.2300, L100.0500 ####[facility] [place] [address] [place], [address] AST [Catalytic activity/Vol] 54 U/L High <=37 [facility] [place] Comment on above: Performed By: #### L 100.4500, L500.4050, L501.5200, L501.2300, L100.0500 ####[facility] [place] [address] [place], [address] Bilirubin [Mass/Vol] 0.90 mg/dL Normal 0.00-1.30 [facility] Comment on above: Performed By: #### L 100.4500, L500.4050, L501.5200, L501.2300, L100.0500 ####[facility] [place] [address] [place], [address] BUN/CRE 14.6 RATIO Normal 10-20 [facility] [place] Comment on above: Performed By: #### L 100.4500, L500.4050, L501.5200, L501.2300, L100.0500 ####[facility] [place] [address] [place], [address] Calcium [Mass/Vol] 7.9 mg/dL Normal 7.6-11.0 [facility] Comment on above: Performed By: #### L 100.4500, L500.4050, L501.5200, L501.2300, L100.0500 ####[facility] [place] [address] [place], [address] Chloride [Moles/Vol] 103 mmol/L Normal 98-108 [facility] Comment on above: Performed By: #### L 100.4500, L500.4050, L501.5200, L501.2300, L100.0500 ####[facility] [place] [address] [place], [address] CO2 [Moles/Vol] 19.0 mmol/L Low 21.0-32.0 [facility] [place] Comment on above: Performed By: #### L 100.4500, L500.4050, L501.5200, L501.2300, L100.0500 ####[facility] [place] [address] [place], [address] Creatinine [Mass/Vol] 1.03 mg/dL Normal 0.70-1.20 [facility] Comment on above: Performed By: #### L 100.4500, L500.4050, L501.5200, L501.2300, L100.0500 ####[facility] [place] [address] [place], [address] ECRCL 87.82 ml/min Normal 50-250 [facility] [place] Comment on above: Performed By: #### L 100.4500, L500.4050, L501.5200, L501.2300, L100.0500 ####[facility] [place] [address] [place], [address] GAP 9 Normal 5-15 [facility] [place] Comment on above: Performed By: #### L 100.4500, L500.4050, L501.5200, L501.2300, L100.0500 ####[facility] [place] [address] [place], [address] GFR/1.73 sq M.predicted among non-blacks MDRD (S/P/Bld) [Vol rate/Area] 84 mL/min/{1.73_m2} Normal >60 [facility] [place] Comment on above: Result Comment: mL/m in/1.73m2 CKD-EPI Creatinine Equation (2020) Performed By: #### L 100.4500, L500.4050, L501.5200, L501.2300, L100.0500 ####[facility] [place] [address] [place], [address] Globulin (S) [Mass/Vol] 2.9 g/dL Normal 2.2-4.2 [facility] Comment on above: Performed By: #### L 100.4500, L500.4050, L501.5200, L501.2300, L100.0500 ####[facility] [place] [address] [place], [address] Glucose [Mass/Vol] 256 mg/dL High 70-99 [facility] Comment on above: Performed By: #### L 100.4500, L500.4050, L501.5200, L501.2300, L100.0500 ####[facility] [place] [address] [place], [address] Potassium [Moles/Vol] 3.6 mmol/L Normal 3.3-5.1 [facility] Comment on above: Performed By: #### L 100.4500, L500.4050, L501.5200, L501.2300, L100.0500 ####[facility] [place] [address] [place], [address] Sodium [Moles/Vol] 131 mmol/L Low 133-145 [facility] Comment on above: Performed By: #### L 100.4500, L500.4050, L501.5200, L501.2300, L100.0500 ####[facility] [place] [address] [place], [address] T PROT 5.3 g/dL Low 5.9-8.4 [facility] [place] Comment on above: Performed By: #### L 100.4500, L500.4050, L501.5200, L501.2300, L100.0500 ####[facility] [place] [address] [place], [address] Urea nitrogen [Mass/Vol] 15 mg/dL Normal 4-19 [facility] [place] Comment on above: Performed By: #### L 100.4500, L500.4050, L501.5200, L501.2300, L100.0500 ####[facility] [place] [address], [address] Differential Commenton 06-03 -2025 SMEAR COMMENT SCANNED Normal [facility] [place] Comment on above: Result Comment: MODE RATE THROMBOCYTOPENIA NOTED Performed By: #### L 100.4500, L500.4050, L501.5200, L501.2300, L100.0500 ####[facility] [place] [address] [place], [address] Magnesiumon 01-04-2025 Magnesium [Mass/Vol] 1.3 mg/dL Low 1.5-2.2 [facility] Comment on above: Performed By: #### L 100.4500, L500.4050, L501.5200, L501.2300, L100.0500 ####[facility] [place] [address] [place], [address] Magnesium measurement (mass/ volume)Ordered By: Hill Acuña on 01-04-2025 Magnesium (Unsp spec) [Mass/Vol] 1.3 mg/dL Low 1.5-2.2 [facility] [place] No Panel InformationOrdered By: Hill Acuña on 01-04-2025 54 U/L High <38 [facility] [place] Phosphoruson 01-04-2025 Phosphate [Mass/Vol] 2.3 mg/dL Low 2.7-4.5 [facility] Comment on above: Performed By: #### L 100.4500, L500.4050, L501.5200, L501.2300, L100.0500 ####[facility] [place] [address] [place], [place], [address] Serum globulin measurementOr dered By: Hill Acuña on 01-04-2025 Globulin (S) [Mass/Vol] 2.9 g/dL 2.2-4.2 [facility] Serum or plasma alanine thomas otransferase (ALT) measurementOrdered By: Hill Acuña on 01-04-2025 ALT [Catalytic activity/Vol] 26 U/L <47 [facility] [place] Serum or plasma albumin roosevelt urement (mass/volume)Ordered By: Hill Acuña on 01-04-2025 Albumin [Mass/Vol] 2.4 g/dL Low 3.5-5.0 [facility] Serum or plasma albumin/glob ulin mass ratioOrdered By: Hill Acuña on 01-04-2025 Albumin/Globulin [Mass ratio] 0.9 {ratio} 0.9-2.4 [facility] [place] Serum or plasma alkaline kendrick sphatase measurementOrdered By: Hill Acuña on 01-04-2025 ALP [Catalytic activity/Vol] 171 U/L High 40-129 [facility] [place] Total proteinOrdered By: Hugo Acuña on 01-04-2025 Protein [Mass/Vol] 5.3 g/dL Low 5.9-8.4 [facility] Urine Cultureon 01-04-2025 URC Yeast, not Mary albicans [place] Count 11,000-25,000 Normal [facility] [place] Comment on above: Performed By: #### L 400.0001, M100.2200 ####[facility] [place] [address] [place], [address] Basic Metabolic Profile (BMP )on 01-03-2025 BUN/CRE 17.3 RATIO Normal 10-20 [facility] [place] Comment on above: Performed By: #### L 500.2500, L100.0100 ####[facility] [place] [address] [place], [address] Calcium [Mass/Vol] 8.1 mg/dL Normal 7.6-11.0 [facility] Comment on above: Performed By: #### L 500.2500, L100.0100 ####[facility] [place] [address] [place], [address] Chloride [Moles/Vol] 101 mmol/L Normal 98-108 [facility] Comment on above: Performed By: #### L 500.2500, L100.0100 ####[facility] [place] [address] [place], [address] CO2 [Moles/Vol] 18.2 mmol/L Low 21.0-32.0 [facility] [place] Comment on above: Performed By: #### L 500.2500, L100.0100 ####[facility] [place] [address] [place], [address] Creatinine [Mass/Vol] 1.70 mg/dL High 0.70-1.20 [facility] Comment on above: Performed By: #### L 500.2500, L100.0100 ####[facility] [place] [address] [place], [address] ECRCL 52.32 ml/min Normal 50-250 [facility] [place] Comment on above: Performed By: #### L 500.2500, L100.0100 ####[facility] [place] [address] [place], [address] GAP 11 Normal 5-15 [facility] [place] Comment on above: Performed By: #### L 500.2500, L100.0100 ####[facility] [address] [place], [address] GFR/1.73 sq M.predicted among non-blacks MDRD (S/P/Bld) [Vol rate/Area] 46 mL/min/{1.73_m2} Low >60 [facility] [place] Comment on above: Result Comment: mL/m in/1.73m2 CKD-EPI Creatinine Equation (2020) Performed By: #### L 500.2500, L100.0100 ####[facility] [address] [place], [address] Glucose [Mass/Vol] 351 mg/dL High 70-99 [facility] Comment on above: Performed By: #### L 500.2500, L100.0100 ####[facility] [place] [address] [place], [address] Potassium [Moles/Vol] 3.6 mmol/L Normal 3.3-5.1 [facility] Comment on above: Performed By: #### L 500.2500, L100.0100 ####[facility] [place] [address] [place], [address] Sodium [Moles/Vol] 130 mmol/L Low 133-145 [facility] Comment on above: Performed By: #### L 500.2500, L100.0100 ####[facility] [place] [address] [place], [address] Urea nitrogen [Mass/Vol] 29 mg/dL High 4-19 [facility] [place] Comment on above: Performed By: #### L 500.2500, L100.0100 ####[facility] [place] [address] [place], [address] Bedside Glucoseon 01-03-2025 FINGERSTICK GLU 356 mg/dL High 74-106 [facility] [place] Comment on above: Result Comment: BRISA GEMENT OF PATIENT CARE PER NURSING PROTOCOL Performed By: #### L 501.080 ####[facility] [place] [address] [place], [address] FINGERSTICK GLU 483 mg/dL Invalid Interpretation Code 74-106 [facility] [place] Comment on above: Result Comment: Insu jaye GivenMANAGEMENT OF PATIENT CARE PER NURSING PROTOCOL Performed By: #### L 501.080 ####[facility] [place] [address] [place], [address] FINGERSTICK GLU 338 mg/dL High 74-[address] [place] [address] Comment on above: Result Comment: BRISA GEMENT OF PATIENT CARE PER NURSING PROTOCOL Performed By: #### L 501.080 ####[facility] [place] [address] [place], [address] FINGERSTICK GLU 322 mg/dL High 74-106 [facility] [place] Comment on above: Result Comment: BRISA GEMENT OF PATIENT CARE PER NURSING PROTOCOL Performed By: #### L 501.080 ####[facility] [place] [address] [place], [address] CBC W/Diff, Automatedon 06-0 2-2024 Basophils/100 WBC (Bld) 0.2 % Normal 0-1 [facility] Comment on above: Performed By: #### L 500.2500, L100.0100 ####[facility] [address] [place], [address] Eosinophils/100 WBC (Bld) 6.4 % High 0-5 [facility] [place] Comment on above: Performed By: #### L 500.2500, L100.0100 ####[facility] [address] [place], [address] Hematocrit (Bld) [Volume fraction] 24.2 % Low 40-54 [facility] [place] Comment on above: Performed By: #### L 500.2500, L100.0100 ####[facility] [address] [place], [address] Hemoglobin (Bld) [Mass/Vol] 8.0 g/dL Low 13.0-16.5 [facility] [place] Comment on above: Performed By: #### L 500.2500, L100.0100 ####[facility] [place] [address] [place], [address] Lymphocytes/100 WBC (Bld) 13.9 % Low 19-41 [facility] [place] Comment on above: Performed By: #### L 500.2500, L100.0100 ####[facility] [place] [address] [place], [address] MCH (RBC) [Entitic mass] 29.0 pg Normal 27.0-32.0 [facility] [place] Comment on above: Performed By: #### L 500.2500, L100.0100 ####[facility] [place] [address] [place], [address] MCV (RBC) [Entitic vol] 87.7 fL Normal 80-94 [facility] Comment on above: Performed By: #### L 500.2500, L100.0100 ####[facility] [place] [address] [place], [address] Monocytes/100 WBC (Bld) 11.5 % High 0-10 [facility] Comment on above: Performed By: #### L 500.2500, L100.0100 ####[facility] [place] [address] [place], [address] RBC (Bld) [#/Vol] 2.76 10*6/uL Low 4.6-6.2 [facility] Comment on above: Performed By: #### L 500.2500, L100.0100 ####[facility] [address] [place], [address] Absolute lymphocyte countOrd ered By: Roddy Reeves on 01-02-2025 Lymphocytes Auto (Unsp spec) [#/Vol] 1.55 10*3/uL 0.83-4.51 [facility] Anion gap in Serum or Plasma Ordered By: Roddy Reeves on 01-02-2025 Anion gap [Moles/Vol] 17 mmol/L High 5-15 [facility] Automated lymphocyte count a s percentage of total leukocytesOrdered By: Roddy Reeves on 01-02-2025 Lymphocytes/100 WBC Auto (Unsp spec) 12.2 % Low 19-41 [facility] BUN/creatinine ratioOrdered By: Roddy Reeves on 01-02-2025 Urea nitrogen/Creatinine [Mass ratio] 12.9 mg/mg 10-20 [facility] [place] Basophil percentageOrdered B y: Roddy Reeves on 01-02-2025 Basophils/100 WBC (Bld) 0.4 % 0-1 [facility] Bilirubin Test strip Ql (U)O rdered By: Roddy Reeves on 01-02-2025 Bilirubin Ql (U) Negative Negative [facility] Bilirubin, totalOrdered By: Roddy Reeves on 01-02-2025 Bilirubin [Mass/Vol] 0.90 mg/dL 0.00-1.30 [facility] Carbon dioxide, total [Moles /volume] in Central venous bloodOrdered By: Roddy Reeves on 01-02-2025 CO2 [Moles/Vol] 19.6 mmol/L Low 21.0-32.0 [facility] Chloride assayOrdered By: Catrachito Reeves on 01-02-2025 Chloride [Moles/Vol] 95 mmol/L Low 98-108 [facility] Eosinophil percentageOrdered By: Roddy Reeves on 01-02-2025 Eosinophils/100 WBC (Bld) 6.9 % High 0-5 [facility] Erythrocyte distribution wid th ratioOrdered By: Roddy Reeves on 01-02-2025 Erythrocyte distribution width (RBC) [Ratio] 16.4 % High 11.6-14.6 [facility] Erythrocyte distribution wid th standard deviationOrdered By: Roddy Reeves on 01-02-2025 Erythrocyte distribution width (RBC) [Ratio] 51.1 fl High 35.1-43.9 [facility] Glomerular filtration rate ( GFR) estimation/1.73 sq m using serum, plasma, or whole bOrdered By: Roddy Reeves on 01-02-2025 GFR/1.73 sq M.predicted among non-blacks MDRD (S/P/Bld) [Vol rate/Area] 19 mL/min/{1.73_m2} Low >60 [facility] [place] Hematocrit Auto (Bld) [Volum e fraction]Ordered By: Roddy Reeves on 01-02-2025 Hematocrit (Bld) [Volume fraction] 28.0 % Low 40-54 [facility] [place] Hemoglobin measurementOrdere d By: Roddy Reeves on 01-02-2025 Hemoglobin (Bld) [Mass/Vol] 9.5 g/dL Low 13.0-16.5 [facility] [place] Immature granulocytes/100 WB C Auto (Bld)Ordered By: Roddy Reeves on 01-02-2025 Immature granulocytes/100 WBC (Bld) 0.600 % 0.0-0.9 [facility] Ketones Test strip Ql (U)Ord ered By: Roddy Reeves on 01-02-2025 Ketones Ql (U) 5 mg/dl High Negative [facility] [place] MCV (mean corpuscular volume ) determinationOrdered By: Roddy Reeves on 01-02-2025 MCV (RBC) [Entitic vol] 87.2 fL 80-94 [facility] Magnesium measurement (mass/ volume)Ordered By: Roddy Reeves on 01-02-2025 Magnesium (Unsp spec) [Mass/Vol] 2.0 mg/dL 1.5-2.2 [facility] [place] Mean corpuscular hemoglobin (MCH) determinationOrdered By: Roddy Reeves on 01-02-2025 MCH (RBC) [Entitic mass] 29.6 pg 27.0-32.0 [facility] [place] Monocyte percentageOrdered B y: Roddy Reeves on 01-02-2025 Monocytes/100 WBC (Bld) 11.9 % High 0-10 [facility] Mucus LM Ql (Urine sed)Order ed By: Roddy Reeves on 01-02-2025 Mucus Ql (Urine sed) 0 SEEN /hpf [facility] Neutrophil percentageOrdered By: Roddy Reeves on 01-02-2025 Neutrophils/100 WBC (Bld) 68.0 % 47-70 [facility] [place] Nitrite Test strip Ql (U)Ord ered By: Roddy Reeves on 01-02-2025 Nitrite Ql (U) Negative Negative [facility] No Panel InformationOrdered By: Roddy Reeves on 01-02-2025 37 U/L <38 [facility] [place] Platelet countOrdered By: Catrachito Reeves on 01-02-2025 Platelets (Bld) [#/Vol] 171 10*3/uL 150-450 [facility] [place] Potassium measurement (mass/ volume)Ordered By: Roddy Reeves on 01-02-2025 Potassium (Unsp spec) [Mass/Vol] 2.6 mmol/L Low 3.3-5.1 [facility] Protein Test strip Ql (U)Ord ered By: Roddy Reeves on 01-02-2025 Protein Ql (U) 100 mg/dl High Negative [facility] [place] RBC Auto (Bld) [#/Vol]Ordere d By: Roddy Reeves on 01-02-2025 RBC (Bld) [#/Vol] 3.21 10*6/uL Low 4.6-6.2 [facility] Serum creatinine measurement (mass/volume)Ordered By: Roddy Reeves on 01-02-2025 Creatinine [Mass/Vol] 3.54 mg/dL High 0.70-1.20 [facility] Serum globulin measurementOr dered By: Roddy Reeves on 01-02-2025 Globulin (S) [Mass/Vol] 3.4 g/dL 2.2-4.2 [facility] Serum glucose measurement (m ass/volume)Ordered By: Roddy Reeves on 01-02-2025 Glucose [Mass/Vol] 164 mg/dL High 70-99 [facility] Serum or plasma alanine thomas otransferase (ALT) measurementOrdered By: Roddy Reeves on 01-02-2025 ALT [Catalytic activity/Vol] 23 U/L <47 [facility] [place] Serum or plasma albumin roosevelt urement (mass/volume)Ordered By: Roddy Reeves on 01-02-2025 Albumin [Mass/Vol] 2.8 g/dL Low 3.5-5.0 [facility] Serum or plasma albumin/glob ulin mass ratioOrdered By: Roddy Reeves on 01-02-2025 Albumin/Globulin [Mass ratio] 0.8 {ratio} Low 0.9-2.4 [facility] [place] Serum or plasma alkaline kendrick sphatase measurementOrdered By: Roddy Reeves on 01-02-2025 ALP [Catalytic activity/Vol] 191 U/L High 40-129 [facility] [place] Serum or plasma calcium roosevelt urement (mass/volume)Ordered By: Roddy Reeves on 01-02-2025 Calcium [Mass/Vol] 9.0 mg/dL 7.6-11.0 [facility] Serum or plasma ethanol roosevelt urement (mass/volume)Ordered By: Roddy Reeves on 01-02-2025 Ethanol [Mass/Vol] mg/dL <10.1 [facility] Serum or plasma urea nitroge n measurement (mass/volume)Ordered By: Roddy Reeves on 01-02-2025 Urea nitrogen [Mass/Vol] 46 mg/dL High 4-19 [facility] [place] Sodium levelOrdered By: Valentín Reeves on 01-02-2025 Sodium [Moles/Vol] 132 mmol/L Low 133-145 [facility] Squamous epithelial cells de tection in urine sediment by light microscopyOrdered By: Roddy Reeves on 01-02-2025 Epithelial cells.squamous LM Ql (Urine sed) 0 SEEN /hpf 0-5 [facility] [place] Total proteinOrdered By: Zoila Reeves on 01-02-2025 Protein [Mass/Vol] 6.1 g/dL 5.9-8.4 [facility] Urine clarityOrdered By: Zoila Reeves on 01-02-2025 Clarity (U) Turbid Clear [facility] Urine color determinationOrd ered By: Roddy Reeves on 01-02-2025 Color (U) Red Yellow [facility] [place] Urine cultureOrdered By: Zoila Reeves on 01-02-2025 Bacteria identified Cx Nom (U) Yeast, not Mary albicans Abnormal [facility] Urine glucose detectionOrder ed By: Roddy Reeves on 01-02-2025 Glucose Ql (U) Normal mg/dl Normal [facility] [place] Urine leukocyte esterase det ection by dipstickOrdered By: Roddy Reeves on 01-02-2025 Leukocyte esterase Test strip Ql (U) 500 /ul High Negative [facility] [place] Urine pHOrdered By: Roddy gonzalez on 01-02-2025 pH (U) 6.0 [pH] 5.0 - 8.0 [facility] [place] Urine sediment bacteria coun t by microscopy (number/high power field)Ordered By: Roddy Reeves on 01-02-2025 Bacteria LM.HPF (Urine sed) [#/Area] 3 /[HPF] None Seen [facility] Urine specific gravity measu rementOrdered By: Roddy Reeves on 01-02-2025 Specific gravity (U) [Rel density] 1.015 1.002-1.030 [facility] [place] Urine urobilinogen measureme ntOrdered By: Roddy Reeves on 01-02-2025 Urobilinogen Ql (U) Normal mg/dl Normal [facility] Venous blood ammonia measure mentOrdered By: Roddy Reeves on 01-02-2025 Ammonia (P) [Moles/Vol] 40.4 umol/L 16-60 [facility] [place] White blood cell (WBC) count Ordered By: Roddy Reeves on 01-02-2025 WBC (Bld) [#/Vol] 12.7 10*3/uL High 4.4-11.0 [facility] White blood cell countOrdere d By: Roddy Reeves on 01-02-2025 White blood cell count 25-50 SEEN /hpf 0-5 [facility] [place] Absolute lymphocyte countOrd ered By: Mina Blood on 12-30-2024 Lymphocytes Auto (Unsp spec) [#/Vol] 1.31 10*3/uL 0.83-4.51 [facility] [place] Anion gap in Serum or Plasma Ordered By: Mina Blood on 12-30-2024 Anion gap [Moles/Vol] 15 mmol/L 5-15 [facility] Automated lymphocyte count a s percentage of total leukocytesOrdered By: Mina Blood on 12-30-2024 Lymphocytes/100 WBC Auto (Unsp spec) 14.0 % Low 19-41 [facility] [place] BUN/creatinine ratioOrdered By: Mina Blood on 12-30-2024 Urea nitrogen/Creatinine [Mass ratio] 14.1 mg/mg 10-20 [facility] [place] Basophil percentageOrdered B y: Mina Blood on 12-30-2024 Basophils/100 WBC (Bld) 0.4 % 0-1 [facility] Bilirubin Test strip Ql (U)O rdered By: Mina Blood on 12-30-2024 Bilirubin Ql (U) Negative Negative [facility] [place] Carbon dioxide, total [Moles /volume] in Central venous bloodOrdered By: Mina Blood on 12-30-2024 CO2 [Moles/Vol] 22.1 mmol/L 21.0-32.0 [facility] [place] Chloride assayOrdered By: Marcella Blood on 12-30-2024 Chloride [Moles/Vol] 91 mmol/L Low 98-108 [facility] Eosinophil percentageOrdered By: Mina Blood on 12-30-2024 Eosinophils/100 WBC (Bld) 6.2 % High 0-5 [facility] [place] Erythrocyte distribution wid th ratioOrdered By: Mina Blood on 12-30-2024 Erythrocyte distribution width (RBC) [Ratio] 16.1 % High 11.6-14.6 [facility] [place] Erythrocyte distribution wid th standard deviationOrdered By: Mina Blood on 12-30-2024 Erythrocyte distribution width (RBC) [Ratio] 50.9 fl High 35.1-43.9 [facility] [place] Glomerular filtration rate ( GFR) estimation/1.73 sq m using serum, plasma, or whole bOrdered By: Mina Blood on 12-30-2024 GFR/1.73 sq M.predicted among non-blacks MDRD (S/P/Bld) [Vol rate/Area] 37 mL/min/{1.73_m2} Low >60 [facility] [place] Gl[facility] deOrdered By: Mina Blood on 12-30-2024 Glucose [Mass/Vol] 453 mg/dL High 74-106 [facility] Hematocrit Auto (Bld) [Volum e fraction]Ordered By: Mina Blood on 12-30-2024 Hematocrit (Bld) [Volume fraction] 25.8 % Low 40-54 [facility] [place] Hemoglobin measurementOrdere d By: Mina Blood on 12-30-2024 Hemoglobin (Bld) [Mass/Vol] 8.7 g/dL Low 13.0-16.5 [facility] [place] Immature granulocytes/100 WB C Auto (Bld)Ordered By: Mina Blood on 12-30-2024 Immature granulocytes/100 WBC (Bld) 0.600 % 0.0-0.9 [facility] Ketones Test strip Ql (U)Ord ered By: Mina Blood on 12-30-2024 Ketones Ql (U) Negative Negative [facility] [place] MCV (mean corpuscular volume ) determinationOrdered By: Mina Blood on 12-30-2024 MCV (RBC) [Entitic vol] 88.1 fL 80-94 [facility] Magnesium measurement (mass/ volume)Ordered By: Mina Blood on 12-30-2024 Magnesium (Unsp spec) [Mass/Vol] 1.3 mg/dL Low 1.5-2.2 [facility] Mean corpuscular hemoglobin (MCH) determinationOrdered By: Mina Blood on 12-30-2024 MCH (RBC) [Entitic mass] 29.7 pg 27.0-32.0 [facility] Monocyte percentageOrdered B y: Mina Blood on 12-30-2024 Monocytes/100 WBC (Bld) 9.1 % 0-10 [facility] Mucus LM Ql (Urine sed)Order ed By: Mina Blood on 12-30-2024 Mucus Ql (Urine sed) 0 SEEN /hpf [facility] Neutrophil percentageOrdered By: Mina Blood on 12-30-2024 Neutrophils/100 WBC (Bld) 69.7 % 47-70 [facility] Nitrite Test strip Ql (U)Ord ered By: Mina Blood on 12-30-2024 Nitrite Ql (U) Negative Negative [facility] Platelet countOrdered By: Marcella Blood on 12-30-2024 Platelets (Bld) [#/Vol] 131 10*3/uL Low 150-450 [facility] Potassium measurement (mass/ volume)Ordered By: Mina Blood on 12-30-2024 Potassium (Unsp spec) [Mass/Vol] 3.2 mmol/L Low 3.3-5.1 [facility] Protein Test strip Ql (U)Ord ered By: Mina Blood on 12-30-2024 Protein Ql (U) 100 mg/dl High Negative [facility] RBC Auto (Bld) [#/Vol]Ordere d By: Mina Blood on 12-30-2024 RBC (Bld) [#/Vol] 2.93 10*6/uL Low 4.6-6.2 [facility] Serum creatinine measurement (mass/volume)Ordered By: Mina Blood on 12-30-2024 Creatinine [Mass/Vol] 2.05 mg/dL High 0.70-1.20 [facility] Serum glucose measurement (m ass/volume)Ordered By: Mina Blood on 12-30-2024 Glucose [Mass/Vol] 608 mg/dL High 70-99 [facility] Serum or plasma calcium roosevelt urement (mass/volume)Ordered By: Mina Blood on 12-30-2024 Calcium [Mass/Vol] 9.1 mg/dL 7.6-11.0 [facility] Serum or plasma urea nitroge n measurement (mass/volume)Ordered By: Mina Blood on 12-30-2024 Urea nitrogen [Mass/Vol] 29 mg/dL High 4-19 [facility] Sodium levelOrdered By: Magen Blood on 12-30-2024 Sodium [Moles/Vol] 128 mmol/L Low 133-145 [facility] Squamous epithelial cells de tection in urine sediment by light microscopyOrdered By: Mina Blood on 12-30-2024 Epithelial cells.squamous LM Ql (Urine sed) 0-5 SEEN /hpf 0-5 [facility] Transitional cells detection in urine sediment by light microscopyOrdered By: Mina Blood on 12-30-2024 Transitional cells LM Ql (Urine sed) 0-5 SEEN /hpf 0-5 [facility] Troponin T.cardiac [Mass/vol ume] in Serum or Plasma by High sensitivity methodOrdered By: Mina Blood on 12-30-2024 Troponin T.cardiac High sensitivity method [Mass/Vol] 20 ng/L <22 [facility] Troponin T.cardiac High sensitivity method [Mass/Vol] 19 ng/L <22 [facility] Urine clarityOrdered By: Ever Blood on 12-30-2024 Clarity (U) Cloudy Clear [facility] Urine color determinationOrd ered By: Mina Blood on 12-30-2024 Color (U) Lexis Yellow [facility] [place] Urine cultureOrdered By: Ever Blood on 12-30-2024 Bacteria identified Cx Nom (U) GPC Poss Enterococcus sp Abnormal [facility] [place] Bacteria identified Cx Nom (U) Positive Abnormal [facility] [place] Urine glucose detectionOrder ed By: Mina Blood on 12-30-2024 Glucose Ql (U) 1000 mg/dl High Normal [facility] [place] Urine leukocyte esterase det ection by dipstickOrdered By: Mina Blood on 12-30-2024 Leukocyte esterase Test strip Ql (U) 500 /ul High Negative [facility] [place] Urine pHOrdered By: Mina ferrer on 12-30-2024 pH (U) 6.5 [pH] 5.0 - 8.0 [facility] [place] Urine sediment bacteria coun t by microscopy (number/high power field)Ordered By: Mina Blood on 12-30-2024 Bacteria LM.HPF (Urine sed) [#/Area] 1 /[HPF] None Seen [facility] [place] Urine specific gravity measu rementOrdered By: Mina Blood on 12-30-2024 Specific gravity (U) [Rel density] 1.010 1.002-1.030 [facility] [place] Urine urobilinogen measureme ntOrdered By: Mina Blood on 12-30-2024 Urobilinogen Ql (U) Normal mg/dl Normal [facility] White blood cell (WBC) count Ordered By: Mina Blood on 12-30-2024 WBC (Bld) [#/Vol] 9.4 10*3/uL 4.4-11.0 [facility] White blood cell countOrdere d By: Mina Blood on 12-30-2024 White blood cell count >100 SEEN /hpf 0-5 [facility] [place] Absolute lymphocyte countOrd ered By: Boone Carvajal on 12-26-2024 Lymphocytes Auto (Unsp spec) [#/Vol] 1.69 10*3/uL 0.83-4.51 [facility] [place] Activated partial thrombopla stin time (aPTT) in platelet poor plasma by coagulation aOrdered By: Boone Carvajal on 12-26-2024 aPTT Coag (PPP) [Time] 36.3 s High 24.1-36.2 [facility] Anion gap in Serum or Plasma Ordered By: Boone Carvajal on 12-26-2024 Anion gap [Moles/Vol] 14 mmol/L 5-15 [facility] Automated lymphocyte count a s percentage of total leukocytesOrdered By: Boone Carvajal on 12-26-2024 Lymphocytes/100 WBC Auto (Unsp spec) 15.3 % Low 19-41 [facility] [place] BUN/creatinine ratioOrdered By: Boone Carvajal on 12-26-2024 Urea nitrogen/Creatinine [Mass ratio] 10.3 mg/mg 10-20 [facility] [place] Basophil percentageOrdered B y: Boone Carvajal on 12-26-2024 Basophils/100 WBC (Bld) 0.5 % 0-1 [facility] Beta-hydroxybutyrateOrdered By: Boone Carvajal on 12-26-2024 Beta hydroxybutyrate [Mass/Vol] 0.1 mmol/L 0.0-0.3 [facility] [place] Bilirubin Test strip Ql (U)O rdered By: Boone Carvajal on 12-26-2024 Bilirubin Ql (U) Negative Negative [facility] [place] Bilirubin, totalOrdered By: Boone Carvajal on 12-26-2024 Bilirubin [Mass/Vol] 1.04 mg/dL 0.00-1.30 [facility] Carbon dioxide, total [Moles /volume] in Central venous bloodOrdered By: Boone Carvajal on 12-26-2024 CO2 [Moles/Vol] 20.4 mmol/L Low 21.0-32.0 [facility] [place] Chloride assayOrdered By: Hunter Carvajal on 12-26-2024 Chloride [Moles/Vol] 100 mmol/L 98-108 [facility] Eosinophil percentageOrdered By: Boone Carvajal on 12-26-2024 Eosinophils/100 WBC (Bld) 5.8 % High 0-5 [facility] [place] Erythrocyte distribution wid th ratioOrdered By: Boone Carvajal on 12-26-2024 Erythrocyte distribution width (RBC) [Ratio] 16.3 % High 11.6-14.6 [facility] [place] Erythrocyte distribution wid th standard deviationOrdered By: Boone Carvajal on 12-26-2024 Erythrocyte distribution width (RBC) [Ratio] 54.4 fl High 35.1-43.9 [facility] [place] Glomerular filtration rate ( GFR) estimation/1.73 sq m using serum, plasma, or whole bOrdered By: Boone Carvajal on 12-26-2024 GFR/1.73 sq M.predicted among non-blacks MDRD (S/P/Bld) [Vol rate/Area] 30 mL/min/{1.73_m2} Low >60 [facility] [place] Hematocrit Auto (Bld) [Volum e fraction]Ordered By: Boone Carvajal on 12-26-2024 Hematocrit (Bld) [Volume fraction] 29.6 % Low 40-54 [facility] [place] Hemoglobin measurementOrdere d By: Boone Carvajal on 12-26-2024 Hemoglobin (Bld) [Mass/Vol] 9.6 g/dL Low 13.0-16.5 [facility] [place] Immature granulocytes/100 WB C Auto (Bld)Ordered By: Boone Carvajal 12-26-2024 Immature granulocytes/100 WBC (Bld) 0.500 % 0.0-0.9 [facility] [place] Ketones Test strip Ql (U)Ord ered By: Boone Carvajal on 12-26-2024 Ketones Ql (U) 5 mg/dl High Negative [facility] [place] MCV (mean corpuscular volume ) determinationOrdered By: Boone Carvajal on 12-26-2024 MCV (RBC) [Entitic vol] 90.8 fL 80-94 [facility] Mean corpuscular hemoglobin (MCH) determinationOrdered By: Boone Carvajal on 12-26-2024 MCH (RBC) [Entitic mass] 29.4 pg 27.0-32.0 [facility] [place] Monocyte percentageOrdered B y: Boone Carvajal on 12-26-2024 Monocytes/100 WBC (Bld) 7.4 % 0-10 [facility] Mucus LM Ql (Urine sed)Order ed By: Boone Carvajal on 12-26-2024 Mucus Ql (Urine sed) 0 SEEN /hpf [facility] Neutrophil percentageOrdered By: Boone Carvajal on 12-26-2024 Neutrophils/100 WBC (Bld) 70.5 % High 47-70 [facility] [place] Nitrite Test strip Ql (U)Ord ered By: Boone Carvajal on 12-26-2024 Nitrite Ql (U) Negative Negative [facility] [place] No Panel InformationOrdered By: Boone Carvajal on 12-26-2024 58 U/L High <38 [facility] [place] Platelet countOrdered By: Hunter Carvajla on 12-26-2024 Platelets (Bld) [#/Vol] 139 10*3/uL Low 150-450 [facility] [place] Potassium measurement (mass/ volume)Ordered By: Boone Carvajal on 12-26-2024 Potassium (Unsp spec) [Mass/Vol] 3.5 mmol/L 3.3-5.1 [facility] [place] Protein Test strip Ql (U)Ord ered By: Boone Carvajal on 12-26-2024 Protein Ql (U) 500 mg/dl High Negative [facility] [place] Prothrombin timeOrdered By: Boone Carvajal on 12-26-2024 PT Coag (PPP) [Time] 18.5 s High 11.7-14.9 [facility] RBC Auto (Bld) [#/Vol]Ordere d By: Boone Carvajal on 12-26-2024 RBC (Bld) [#/Vol] 3.26 10*6/uL Low 4.6-6.2 [facility] Serum creatinine measurement (mass/volume)Ordered By: Boone Carvajal on 12-26-2024 Creatinine [Mass/Vol] 2.42 mg/dL High 0.70-1.20 [facility] Serum globulin measurementOr dered By: Boone Carvajal on 12-26-2024 Globulin (S) [Mass/Vol] 3.5 g/dL 2.2-4.2 [facility] Serum glucose measurement (m ass/volume)Ordered By: Boone Carvajal on 12-26-2024 Glucose [Mass/Vol] 386 mg/dL High 70-99 [facility] Serum or plasma alanine thomas otransferase (ALT) measurementOrdered By: Boone Carvajal on 12-26-2024 ALT [Catalytic activity/Vol] 27 U/L <47 [facility] [place] Serum or plasma albumin roosevelt urement (mass/volume)Ordered By: Boone Carvajal on 12-26-2024 Albumin [Mass/Vol] 2.8 g/dL Low 3.5-5.0 [facility] Serum or plasma albumin/glob ulin mass ratioOrdered By: Boone Carvajal on 12-26-2024 Albumin/Globulin [Mass ratio] 0.8 {ratio} Low 0.9-2.4 [facility] [place] Serum or plasma alkaline kendrick sphatase measurementOrdered By: Boone Carvajal on 12-26-2024 ALP [Catalytic activity/Vol] 207 U/L High 40-129 [facility] [place] Serum or plasma calcium roosevelt urement (mass/volume)Ordered By: Boone Carvajal on 12-26-2024 Calcium [Mass/Vol] 8.9 mg/dL 7.6-11.0 [facility] Serum or plasma urea nitroge n measurement (mass/volume)Ordered By: Boone Carvajal on 12-26-2024 Urea nitrogen [Mass/Vol] 25 mg/dL High 4-19 [facility] [place] Sodium levelOrdered By: Boone Carvajal on 12-26-2024 Sodium [Moles/Vol] 135 mmol/L 133-145 [facility] Squamous epithelial cells de tection in urine sediment by light microscopyOrdered By: Boone Carvajal on 12-26-2024 Epithelial cells.squamous LM Ql (Urine sed) 0 SEEN /hpf 0-5 [facility] [place] Total proteinOrdered By: Danita Carvajal on 12-26-2024 Protein [Mass/Vol] 6.3 g/dL 5.9-8.4 [facility] Urine clarityOrdered By: Danita Carvajal on 12-26-2024 Clarity (U) Cloudy Clear [facility] [place] Urine color determinationOrd ered By: Boone Carvajal on 12-26-2024 Color (U) Lexis Yellow [facility] [place] Urine cultureOrdered By: Danita Carvajal on 12-26-2024 Bacteria identified Cx Nom (U) Enterococcus faecalis Abnormal [facility] [place] Bacteria identified Cx Nom (U) GNR lactose certified cytotechnologist Abnormal [facility] [place] Urine glucose detectionOrder ed By: Boone Carvajal on 12-26-2024 Glucose Ql (U) Normal mg/dl Normal [facility] [place] Urine leukocyte esterase det ection by dipstickOrdered By: Boone Carvajal on 12-26-2024 Leukocyte esterase Test strip Ql (U) 500 /ul High Negative [facility] [place] Urine pHOrdered By: Boone romo on 12-26-2024 pH (U) 6.0 [pH] 5.0 - 8.0 [facility] [place] Urine sediment bacteria coun t by microscopy (number/high power field)Ordered By: Boone Carvajal on 12-26-2024 Bacteria LM.HPF (Urine sed) [#/Area] 0 /[HPF] None Seen [facility] [place] Urine specific gravity measu rementOrdered By: Boone Carvajal on 12-26-2024 Specific gravity (U) [Rel density] 1.015 1.002-1.030 [facility] [place] Urine urobilinogen measureme ntOrdered By: Boone Carvajal on 12-26-2024 Urobilinogen Ql (U) Normal mg/dl Normal [facility] Venous blood ammonia measure mentOrdered By: Boone Carvajal on 12-26-2024 Ammonia (P) [Moles/Vol] 114.0 umol/L High 16-60 [facility] [place] White blood cell (WBC) count Ordered By: Boone Carvajal on 12-26-2024 WBC (Bld) [#/Vol] 11.0 10*3/uL 4.4-11.0 [facility] White blood cell countOrdere d By: Boone Carvajal on 12-26-2024 White blood cell count 25-50 SEEN /hpf 0-5 [facility] [place] Absolute lymphocyte countOrd ered By: Josy Elias on 12-07-2024 Lymphocytes Auto (Unsp spec) [#/Vol] 1.71 10*3/uL 0.83-4.51 [facility] [place] Anion gap in Serum or Plasma Ordered By: Josy Elias on 12-07-2024 Anion gap [Moles/Vol] 12 mmol/L 5-15 [facility] Automated lymphocyte count a s percentage of total leukocytesOrdered By: Josy Elias on 12-07-2024 Lymphocytes/100 WBC Auto (Unsp spec) 18.4 % Low 19-41 [facility] [place] BUN/creatinine ratioOrdered By: Josy Elias on 12-07-2024 Urea nitrogen/Creatinine [Mass ratio] 10.0 mg/mg 10-20 [facility] [place] Basophil percentageOrdered B y: Josy Elias on 12-07-2024 Basophils/100 WBC (Bld) 0.6 % 0-1 [facility] Bilirubin, totalOrdered By: Josy Elias on 12-07-2024 Bilirubin [Mass/Vol] 1.21 mg/dL 0.00-1.30 [facility] CNPTOUTREACHon 12-07-2024 CNPTOUTREACH Normal [facility] Carbon dioxide, total [Moles /volume] in Central venous bloodOrdered By: Josy Elias on 12-07-2024 CO2 [Moles/Vol] 20.0 mmol/L Low 21.0-32.0 [facility] [place] Chloride assayOrdered By: Monica Elias on 12-07-2024 Chloride [Moles/Vol] 103 mmol/L 98-108 [facility] Eosinophil percentageOrdered By: Josy Elias on 12-07-2024 Eosinophils/100 WBC (Bld) 5.1 % High 0-5 [facility] [place] Erythrocyte distribution wid th ratioOrdered By: Josy Elias on 12-07-2024 Erythrocyte distribution width (RBC) [Ratio] 16.9 % High 11.6-14.6 [facility] [place] Erythrocyte distribution wid th standard deviationOrdered By: Josy Elias on 12-07-2024 Erythrocyte distribution width (RBC) [Ratio] 57.4 fl High 35.1-43.9 [facility] [place] Gamma glutamyl transferase ( GGT) measurementOrdered By: Josy Elias on 12-07-2024 Amylase [Catalytic activity/Vol] 103 U/L High 0-65 [facility] [place] Glomerular filtration rate ( GFR) estimation/1.73 sq m using serum, plasma, or whole bOrdered By: Josy Elias on 12-07-2024 GFR/1.73 sq M.predicted among non-blacks MDRD (S/P/Bld) [Vol rate/Area] 44 mL/min/{1.73_m2} Low >60 [facility] [place] Hematocrit Auto (Bld) [Volum e fraction]Ordered By: Josy Elias on 12-07-2024 Hematocrit (Bld) [Volume fraction] 26.2 % Low 40-54 [facility] [place] Hemoglobin A1c percentageOrd ered By: Josy Elias on 12-07-2024 HbA1c (Bld) [Mass fraction] 7.2 % High <5.7 [facility] [place] Hemoglobin measurementOrdere d By: Josy Elias on 12-07-2024 Hemoglobin (Bld) [Mass/Vol] 8.5 g/dL Low 13.0-16.5 [facility] [place] Immature granulocytes/100 WB C Auto (Bld)Ordered By: Josy Elias on 12-07-2024 Immature granulocytes/100 WBC (Bld) 0.300 % 0.0-0.9 [facility] [place] MCV (mean corpuscular volume ) determinationOrdered By: Josy Elias on 12-07-2024 MCV (RBC) [Entitic vol] 93.2 fL 80-94 [facility] Mean corpuscular hemoglobin (MCH) determinationOrdered By: Josy Elias on 12-07-2024 MCH (RBC) [Entitic mass] 30.2 pg 27.0-32.0 [facility] [place] Monocyte percentageOrdered B y: Josy Elias on 12-07-2024 Monocytes/100 WBC (Bld) 12.1 % High 0-10 [facility] Neutrophil percentageOrdered By: Josy Elias on 12-07-2024 Neutrophils/100 WBC (Bld) 63.5 % 47-70 [facility] [place] No Panel InformationOrdered By: Josy Elias on 12-07-2024 37 U/L <38 [facility] [place] Platelet countOrdered By: Monica Elias on 12-07-2024 Platelets (Bld) [#/Vol] 145 10*3/uL Low 150-450 [facility] [place] Potassium measurement (mass/ volume)Ordered By: Josy Elias on 12-07-2024 Potassium (Unsp spec) [Mass/Vol] 3.3 mmol/L 3.3-5.1 [facility] [place] RBC Auto (Bld) [#/Vol]Ordere d By: Josy Elias on 12-07-2024 RBC (Bld) [#/Vol] 2.81 10*6/uL Low 4.6-6.2 [facility] Serum creatinine measurement (mass/volume)Ordered By: Josy Elisa on 12-07-2024 Creatinine [Mass/Vol] 1.78 mg/dL High 0.70-1.20 [facility] Serum globulin measurementOr dered By: Josy Elias on 12-07-2024 Globulin (S) [Mass/Vol] 2.9 g/dL 2.2-4.2 [facility] Serum glucose measurement (m ass/volume)Ordered By: Josy Elias on 12-07-2024 Glucose [Mass/Vol] 185 mg/dL High 70-99 [facility] Serum or plasma alanine thomas otransferase (ALT) measurementOrdered By: Josy Elias on 12-07-2024 ALT [Catalytic activity/Vol] 24 U/L <47 [facility] [place] Serum or plasma albumin roosevelt urement (mass/volume)Ordered By: Josy Elias on 12-07-2024 Albumin [Mass/Vol] 2.6 g/dL Low 3.5-5.0 [facility] Serum or plasma albumin/glob ulin mass ratioOrdered By: Josy Elias on 12-07-2024 Albumin/Globulin [Mass ratio] 0.9 {ratio} 0.9-2.4 [facility] [place] Serum or plasma alkaline kendrick sphatase measurementOrdered By: Josy Elias on 12-07-2024 ALP [Catalytic activity/Vol] 241 U/L High 40-129 [facility] [place] Serum or plasma calcium roosevelt urement (mass/volume)Ordered By: Josy Elias on 12-07-2024 Calcium [Mass/Vol] 8.2 mg/dL 7.6-11.0 [facility] Serum or plasma urea nitroge n measurement (mass/volume)Ordered By: Josy Elias on 12-07-2024 Urea nitrogen [Mass/Vol] 18 mg/dL 4-19 [facility] [place] Sodium levelOrdered By: Terrance Elias on 12-07-2024 Sodium [Moles/Vol] 136 mmol/L 133-145 [facility] Total proteinOrdered By: Chinedu Elias on 12-07-2024 Protein [Mass/Vol] 5.5 g/dL Low 5.9-8.4 [facility] White blood cell (WBC) count Ordered By: Josy Elias on 12-07-2024 WBC (Bld) [#/Vol] 9.3 10*3/uL 4.4-11.0 [facility] Absolute lymphocyte countOrd ered By: Hill Acuña on 12-02-2024 Lymphocytes Auto (Unsp spec) [#/Vol] 0.92 10*3/uL 0.83-4.51 [facility] [place] Anion gap in Serum or Plasma Ordered By: Hill Acuña on 12-02-2024 Anion gap [Moles/Vol] 7 mmol/L 5-15 [facility] Automated lymphocyte count a s percentage of total leukocytesOrdered By: Hill Acuña on 12-02-2024 Lymphocytes/100 WBC Auto (Unsp spec) 15.7 % Low 19-41 [facility] [place] BUN/creatinine ratioOrdered By: Hill Acuña on 12-02-2024 Urea nitrogen/Creatinine [Mass ratio] 8.1 mg/mg Low 10-20 [facility] [place] Basophil percentageOrdered B y: Hill Acuña on 12-02-2024 Basophils/100 WBC (Bld) 0.5 % 0-1 [facility] Bilirubin, totalOrdered By: Hill Acuña on 12-02-2024 Bilirubin [Mass/Vol] 1.07 mg/dL 0.00-1.30 [facility] Carbon dioxide, total [Moles /volume] in Central venous bloodOrdered By: Hill Acuña on 12-02-2024 CO2 [Moles/Vol] 21.0 mmol/L 21.0-32.0 [facility] [place] Chloride assayOrdered By: Kvng Acuña on 12-02-2024 Chloride [Moles/Vol] 104 mmol/L 98-108 [facility] Eosinophil percentageOrdered By: Hill Acuña on 12-02-2024 Eosinophils/100 WBC (Bld) 3.6 % 0-5 [facility] [place] Erythrocyte distribution wid th ratioOrdered By: Hill Acuña on 12-02-2024 Erythrocyte distribution width (RBC) [Ratio] 16.2 % High 11.6-14.6 [facility] [place] Erythrocyte distribution wid th standard deviationOrdered By: Hill Acuña on 12-02-2024 Erythrocyte distribution width (RBC) [Ratio] 53.0 fl High 35.1-43.9 [facility] [place] Glomerular filtration rate ( GFR) estimation/1.73 sq m using serum, plasma, or whole bOrdered By: Hill Acuña on 12-02-2024 GFR/1.73 sq M.predicted among non-blacks MDRD (S/P/Bld) [Vol rate/Area] 98 mL/min/{1.73_m2} >60 [facility] [place] Glucose measurement at [facility] deOrdered By: Hill Acuña on 12-02-2024 Glucose [Mass/Vol] 259 mg/dL High 74-106 [facility] Hematocrit Auto (Bld) [Volum e fraction]Ordered By: Hill Acuña on 12-02-2024 Hematocrit (Bld) [Volume fraction] 21.9 % Low 40-54 [facility] [place] Hemoglobin measurementOrdere d By: Hill Acuña on 12-02-2024 Hemoglobin (Bld) [Mass/Vol] 7.2 g/dL Low 13.0-16.5 [facility] [place] Immature granulocytes/100 WB C Auto (Bld)Ordered By: Hill Acuña on 12-02-2024 Immature granulocytes/100 WBC (Bld) 0.500 % 0.0-0.9 [facility] [place] MCV (mean corpuscular volume ) determinationOrdered By: Hill Acuña on 12-02-2024 MCV (RBC) [Entitic vol] 89.8 fL 80-94 [facility] Magnesium measurement (mass/ volume)Ordered By: Hill Acuña on 12-02-2024 Magnesium (Unsp spec) [Mass/Vol] 1.6 mg/dL 1.5-2.2 [facility] [place] Mean corpuscular hemoglobin (MCH) determinationOrdered By: Hill Acuña on 12-02-2024 MCH (RBC) [Entitic mass] 29.5 pg 27.0-32.0 [facility] [place] Monocyte percentageOrdered B y: Hill Acuña on 12-02-2024 Monocytes/100 WBC (Bld) 13.3 % High 0-10 [facility] Neutrophil percentageOrdered By: Hill Acuña on 12-02-2024 Neutrophils/100 WBC (Bld) 66.4 % 47-70 [facility] [place] No Panel InformationOrdered By: Hill Acuña on 12-02-2024 58 U/L High <38 [facility] [place] Platelet countOrdered By: Kvng Acuña on 12-02-2024 Platelets (Bld) [#/Vol] 100 10*3/uL Low 150-450 [facility] [place] Potassium measurement (mass/ volume)Ordered By: Hill Acuña on 12-02-2024 Potassium (Unsp spec) [Mass/Vol] 3.8 mmol/L 3.3-5.1 [facility] [place] RBC Auto (Bld) [#/Vol]Ordere d By: Hill Acuña on 12-02-2024 RBC (Bld) [#/Vol] 2.44 10*6/uL Low 4.6-6.2 [facility] Serum creatinine measurement (mass/volume)Ordered By: Hill Acuña on 12-02-2024 Creatinine [Mass/Vol] 0.90 mg/dL 0.70-1.20 [facility] Serum globulin measurementOr dered By: Hill Acuña on 12-02-2024 Globulin (S) [Mass/Vol] 2.6 g/dL 2.2-4.2 [facility] Serum glucose measurement (m ass/volume)Ordered By: Hill Acuña on 12-02-2024 Glucose [Mass/Vol] 221 mg/dL High 70-99 [facility] Serum or plasma alanine thomas otransferase (ALT) measurementOrdered By: Hill Acuña on 12-02-2024 ALT [Catalytic activity/Vol] 33 U/L <47 [facility] [place] Serum or plasma albumin roosevelt urement (mass/volume)Ordered By: Hill Acuña on 12-02-2024 Albumin [Mass/Vol] 2.5 g/dL Low 3.5-5.0 [facility] Serum or plasma albumin/glob ulin mass ratioOrdered By: Hill Acuña on 12-02-2024 Albumin/Globulin [Mass ratio] 1.0 {ratio} 0.9-2.4 [facility] [place] Serum or plasma alkaline kendrick sphatase measurementOrdered By: Hill Acuña on 12-02-2024 ALP [Catalytic activity/Vol] 219 U/L High 40-129 [facility] [place] Serum or plasma calcium roosevelt urement (mass/volume)Ordered By: Hill Acuña on 12-02-2024 Calcium [Mass/Vol] 7.8 mg/dL 7.6-11.0 [facility] Serum or plasma urea nitroge n measurement (mass/volume)Ordered By: Hill Acuña on 12-02-2024 Urea nitrogen [Mass/Vol] 7 mg/dL 4-19 [facility] [place] Sodium levelOrdered By: Paulino Acuña on 12-02-2024 Sodium [Moles/Vol] 132 mmol/L Low 133-145 [facility] Total proteinOrdered By: Hugo Acuña on 12-02-2024 Protein [Mass/Vol] 5.1 g/dL Low 5.9-8.4 [facility] Trough vancomycin levelOrder ed By: Maria Guadalupe Shore on 12-02-2024 Vancomycin trough [Mass/Vol] 19.6 ug/mL High 5.0-15.0 [facility] [place] White blood cell (WBC) count Ordered By: Hill Acuña on 12-02-2024 WBC (Bld) [#/Vol] 5.9 10*3/uL 4.4-11.0 [facility] Platelet estimateOrdered By: Hill Acuña on 11-30-2024 Platelets LM Ql (Bld) [facility] Serum or plasma vancomycin m easurement (mass/volume)Ordered By: Kathie Lemos on 11-30-2024 Vancomycin [Mass/Vol] 17.7 ug/mL High 0.0-15.0 [facility] Prothrombin timeOrdered By: Kathie Lemos on 11-29-2024 PT Coag (PPP) [Time] 21.1 s High 11.7-14.9 [facility] Bilirubin Test strip Ql (U)O rdered By: Rachel Joiner on 11-28-2024 Bilirubin Ql (U) Negative Negative [facility] [place] Bilirubin directOrdered By: Rachel Joiner on 11-28-2024 Bilirubin.direct [Mass/Vol] 0.72 mg/dL High 0.00-0.30 [facility] [place] Ketones Test strip Ql (U)Ord ered By: Rachel Joiner on 11-28-2024 Ketones Ql (U) 5 mg/dl High Negative [facility] [place] Mucus LM Ql (Urine sed)Order ed By: Rachel Joiner on 11-28-2024 Mucus Ql (Urine sed) 0 SEEN /hpf [facility] Nitrite Test strip Ql (U)Ord ered By: Rachel Joiner on 11-28-2024 Nitrite Ql (U) Positive High Negative [facility] [place] Protein Test strip Ql (U)Ord ered By: Rachel Joiner on 11-28-2024 Protein Ql (U) 100 mg/dl High Negative [facility] [place] Squamous epithelial cells de tection in urine sediment by light microscopyOrdered By: Rachel Joiner on 11-28-2024 Epithelial cells.squamous LM Ql (Urine sed) 0-5 SEEN /hpf 0-5 [facility] [place] Urine clarityOrdered By: Shi Joiner on 11-28-2024 Clarity (U) Cloudy Clear [facility] [place] Urine color determinationOrd ered By: Rachel Joiner on 11-28-2024 Color (U) Lexis Yellow [facility] [place] Urine cultureOrdered By: Tyree Lemos on 11-28-2024 Bacteria identified Cx Nom (U) ESBL Klebsiella pneumoniae pne Abnormal [facility] [place] Urine glucose detectionOrder ed By: Rachel Joiner on 11-28-2024 Glucose Ql (U) Normal mg/dl Normal [facility] [place] Urine leukocyte esterase det ection by dipstickOrdered By: Rachel Joiner on 11-28-2024 Leukocyte esterase Test strip Ql (U) 500 /ul High Negative [facility] [place] Urine pHOrdered By: Rachel silva on 11-28-2024 pH (U) 6.5 [pH] 5.0 - 8.0 [facility] [place] Urine sediment bacteria coun t by microscopy (number/high power field)Ordered By: Rachel Joiner on 11-28-2024 Bacteria LM.HPF (Urine sed) [#/Area] 1 /[HPF] None Seen [facility] [place] Urine specific gravity measu rementOrdered By: Rachel Joiner on 11-28-2024 Specific gravity (U) [Rel density] 1.010 1.002-1.030 [facility] [place] Urine urobilinogen measureme ntOrdered By: Rachel Joiner on 11-28-2024 Urobilinogen Ql (U) Normal mg/dl Normal [facility] Venous blood ammonia measure mentOrdered By: Rachel Joiner on 11-28-2024 Ammonia (P) [Moles/Vol] 68.4 umol/L High 16-60 [facility] [place] White blood cell countOrdere d By: Rachel Joiner on 11-28-2024 White blood cell count 50-100 SEEN /hpf 0-5 [facility] [place] Absolute lymphocyte countOrd ered By: Anurag Irene on 11-25-2024 Lymphocytes Auto (Unsp spec) [#/Vol] 0.92 10*3/uL 0.83-4.51 [facility] [place] Anion gap in Serum or Plasma Ordered By: Anurag Irene on 11-25-2024 Anion gap [Moles/Vol] 8 mmol/L 5-15 [facility] Automated lymphocyte count a s percentage of total leukocytesOrdered By: Anurag Irene on 11-25-2024 Lymphocytes/100 WBC Auto (Unsp spec) 16.7 % Low 19-41 [facility] [place] BUN/creatinine ratioOrdered By: Anurag Irene on 11-25-2024 Urea nitrogen/Creatinine [Mass ratio] 9.2 mg/mg Low 10-20 [facility] [place] Basophil percentageOrdered B y: Anurag Irene on 11-25-2024 Basophils/100 WBC (Bld) 0.4 % 0-1 [facility] Bilirubin, totalOrdered By: Anurag Irene on 11-25-2024 Bilirubin [Mass/Vol] 1.07 mg/dL 0.00-1.30 [facility] Carbon dioxide, total [Moles /volume] in Central venous bloodOrdered By: Anurag Irene on 11-25-2024 CO2 [Moles/Vol] 19.3 mmol/L Low 21.0-32.0 [facility] [place] Chloride assayOrdered By: Francois Irene on 11-25-2024 Chloride [Moles/Vol] 108 mmol/L 98-108 [facility] Eosinophil percentageOrdered By: Anurag Irene on 11-25-2024 Eosinophils/100 WBC (Bld) 4.2 % 0-5 [facility] [place] Erythrocyte distribution wid th ratioOrdered By: Anurag Irene on 11-25-2024 Erythrocyte distribution width (RBC) [Ratio] 15.8 % High 11.6-14.6 [facility] [place] Erythrocyte distribution wid th standard deviationOrdered By: Anurag Irene on 11-25-2024 Erythrocyte distribution width (RBC) [Ratio] 52.9 fl High 35.1-43.9 [facility] [place] Glomerular filtration rate ( GFR) estimation/1.73 sq m using serum, plasma, or whole bOrdered By: Anurag Irene on 11-25-2024 GFR/1.73 sq M.predicted among non-blacks MDRD (S/P/Bld) [Vol rate/Area] 100 mL/min/{1.73_m2} >60 [facility] [place] [facility] de[facility]dered By: Anurag Irene on 11-25-2024 Glucose [Mass/Vol] 222 mg/dL High 74-106 [facility] Hematocrit Auto (Bld) [Volum e fraction]Ordered By: Anurag Irene on 11-25-2024 Hematocrit (Bld) [Volume fraction] 21.5 % Low 40-54 [facility] [place] Hemoglobin measurementOrdere d By: Anurag Irene on 11-25-2024 Hemoglobin (Bld) [Mass/Vol] 7.0 g/dL Low 13.0-16.5 [facility] [place] Immature granulocytes/100 WB C Auto (Bld)Ordered By: Anurag Irene on 11-25-2024 Immature granulocytes/100 WBC (Bld) 0.400 % 0.0-0.9 [facility] [place] MCV (mean corpuscular volume ) determinationOrdered By: Anurag Irene on 11-25-2024 MCV (RBC) [Entitic vol] 93.1 fL 80-94 [facility] Mean corpuscular hemoglobin (MCH) determinationOrdered By: Anurag Irene on 11-25-2024 MCH (RBC) [Entitic mass] 30.3 pg 27.0-32.0 [facility] [place] Monocyte percentageOrdered B y: Anurag Irene on 11-25-2024 Monocytes/100 WBC (Bld) 12.7 % High 0-10 [facility] Neutrophil percentageOrdered By: Anurag Irene on 11-25-2024 Neutrophils/100 WBC (Bld) 65.6 % 47-70 [facility] [place] No Panel InformationOrdered By: Anurag Irene on 11-25-2024 60 U/L High <38 [facility] [place] Platelet countOrdered By: Francois Irene on 11-25-2024 Platelets (Bld) [#/Vol] 82 10*3/uL Low 150-450 [facility] Potassium measurement (mass/ volume)Ordered By: Anurag Irene on 11-25-2024 Potassium (Unsp spec) [Mass/Vol] 4.2 mmol/L 3.3-5.1 [facility] [place] RBC Auto (Bld) [#/Vol]Ordere d By: Anurag Irene on 11-25-2024 RBC (Bld) [#/Vol] 2.31 10*6/uL Low 4.6-6.2 [facility] Serum creatinine measurement (mass/volume)Ordered By: Anurag Irene on 11-25-2024 Creatinine [Mass/Vol] 0.86 mg/dL 0.70-1.20 [facility] Serum globulin measurementOr dered By: Anurag Irene on 11-25-2024 Globulin (S) [Mass/Vol] 2.2 g/dL 2.2-4.2 [facility] Serum glucose measurement (m ass/volume)Ordered By: Anurag Irene on 11-25-2024 Glucose [Mass/Vol] 179 mg/dL High 70-99 [facility] Serum or plasma alanine thomas otransferase (ALT) measurementOrdered By: Anurag Irene on 11-25-2024 ALT [Catalytic activity/Vol] 41 U/L <47 [facility] [place] Serum or plasma albumin roosevelt urement (mass/volume)Ordered By: Anurag Irene on 11-25-2024 Albumin [Mass/Vol] 2.7 g/dL Low 3.5-5.0 [facility] Serum or plasma albumin/glob ulin mass ratioOrdered By: Anurag Irene on 11-25-2024 Albumin/Globulin [Mass ratio] 1.2 {ratio} 0.9-2.4 [facility] [place] Serum or plasma alkaline kendrick sphatase measurementOrdered By: Anurag Irene on 11-25-2024 ALP [Catalytic activity/Vol] 168 U/L High 40-129 [facility] [place] Serum or plasma calcium roosevelt urement (mass/volume)Ordered By: Anurag Irene on 11-25-2024 Calcium [Mass/Vol] 8.3 mg/dL 7.6-11.0 [facility] Serum or plasma urea nitroge n measurement (mass/volume)Ordered By: Anurag Irene on 11-25-2024 Urea nitrogen [Mass/Vol] 8 mg/dL 4-19 [facility] [place] Sodium levelOrdered By: Marni Irene on 11-25-2024 Sodium [Moles/Vol] 135 mmol/L 133-145 [facility] Total proteinOrdered By: [place] Irene on 11-25-2024 Protein [Mass/Vol] 4.9 g/dL Low 5.9-8.4 [facility] White blood cell (WBC) count Ordered By: Anurag Irene on 11-25-2024 WBC (Bld) [#/Vol] 5.5 10*3/uL 4.4-11.0 [facility] Blood manual differential co mment interpretation (narrative result)Ordered By: Anurag Irene on 11-24-2024 Manual differential comment Marco Antonio (Bld) [Interp] SCANNED [facility] [place] Platelet estimateOrdered By: Anurag Irene on 11-24-2024 Platelets LM Ql (Bld) MOD DEC ADEQ [facility] Prothrombin timeOrdered By: Anurag Irene on 11-24-2024 PT Coag (PPP) [Time] 22.6 s High 11.7-14.9 [facility] Bilirubin directOrdered By: Anurag Irene on 11-22-2024 Bilirubin.direct [Mass/Vol] 0.73 mg/dL High 0.00-0.30 [facility] [place] ALP [Catalytic activity/Vol] Ordered By: Herberth Carlson on 11-21-2024 Serum or plasma alkaline phosphatase measurement 245 U/L High 40-129 [facility] [place] ALT [Catalytic activity/Vol] Ordered By: Herberth Carlson on 11-21-2024 Serum or plasma alanine aminotransferase (ALT) measurement 61 U/L High <47 [facility] [place] Absolute neutrophil countOrd ered By: Herberth Carlson on 11-21-2024 Absolute neutrophil count 6.5 X10^3/uL 2.0-7.7 [facility] [place] Albumin [Mass/Vol]Ordered By : Herberth Carlson on 11-21-2024 Serum or plasma albumin measurement (mass/volume) 2.5 g/dL Low 3.5-5.0 [facility] [place] Albumin/Globulin [Mass ratio ]Ordered By: Herberth Carlson on 11-21-2024 Serum or plasma albumin/globulin mass ratio 0.9 RATIO 0.9-2.4 [facility] [place] Anion gap [Moles/Vol]Ordered By: Herberth Carlson on 11-21-2024 Anion gap in Serum or Plasma 11 5-15 [facility] [place] BUN/creatinine ratioOrdered By: Herberth Carlson on 11-21-2024 BUN/creatinine ratio 19.1 RATIO 10-20 [facility] Bacteria LM.HPF (Urine sed) [#/Area]Ordered By: Herberth Carlson on 11-21-2024 Urine sediment bacteria count by microscopy (number/high power field) RARE /hpf None Seen [facility] [place] Basophil percentageOrdered B y: Herberth Carlson on 11-21-2024 Basophil percentage 0.2 % 0-1 [facility] Bilirubin Test strip Ql (U)O rdered By: Herberth Carlson on 11-21-2024 Bilirubin Ql (U) Negative Negative [facility] [place] Bilirubin, totalOrdered By: Herberth Carlson on 11-21-2024 Bilirubin, total 1.33 mg/dL High 0.00-1.30 [facility] [place] Calcium [Mass/Vol]Ordered By : Herberth Carlson on 11-21-2024 Serum or plasma calcium measurement (mass/volume) 8.7 mg/dL 7.6-11.0 [facility] [place] Carbon dioxide, total [Moles /volume] in Central venous bloodOrdered By: Herberth Carlson on 11-21-2024 Carbon dioxide, total [Moles/volume] in Central venous blood 17.5 mmol/L Low 21.0-32.0 [facility] [place] Chloride assayOrdered By: Kaylyn Carlson on 11-21-2024 Chloride assay 103 mmol/L 98-108 [facility] [place] Clarity (U)Ordered By: Ashish Carlson on 11-21-2024 Urine clarity Sl Cldy Clear [facility] [place] Color (U)Ordered By: Herberth Carlson on 11-21-2024 Urine color determination Yellow Yellow [facility] [place] Creatinine [Mass/Vol]Ordered By: Herberth Carlson on 11-21-2024 Serum creatinine measurement (mass/volume) 1.49 mg/dL High 0.70-1.20 [facility] [place] Eosinophil percentageOrdered By: Herberth Carlson on 11-21-2024 Eosinophil percentage 7.2 % High 0-5 [facility] Erythrocyte distribution wid th (RBC) [Ratio]Ordered By: Herberth Carlson on 11-21-2024 Erythrocyte distribution width ratio 16.8 % High 11.6-14.6 [facility] [place] Erythrocyte distribution width standard deviation 57.1 fl High 35.1-43.9 [facility] [place] Estimation of creatinine gregorio aranceOrdered By: Herberth Carlson on 11-21-2024 Estimation of creatinine clearance 64.65 ml/min 50-250 [facility] [place] GFR/1.73 sq M.predicted niki g non-blacks MDRD (S/P/Bld) [Vol rate/Area]Ordered By: Herberth Carlson on 11-21-2024 Glomerular filtration rate (GFR) estimation/1.73 sq m using serum, plasma, or whole b 54 Low >60 [facility] [place] Glucose [Mass/Vol]Ordered By : Herberth Carlson on 11-21-2024 Serum glucose measurement (mass/volume) 188 mg/dL High 70-99 [facility] [place] Hematocrit Auto (Bld) [Volum e fraction]Ordered By: Herberth Carlson on 11-21-2024 Automated blood hematocrit (percentage) 24.6 % Low 40-54 [facility] [place] Hemoglobin measurementOrdere d By: Herberth Carlson on 11-21-2024 Hemoglobin measurement 8.3 g/dL Low 13.0-16.5 [facility] Immature granulocytes/100 WB C Auto (Bld)Ordered By: Herberth Carlson on 11-21-2024 Automated immature granulocyte percentage 0.800 % 0.0-0.9 [facility] [place] International normalized rat io (INR) calculationOrdered By: Herberth Carlson on 11-21-2024 International normalized ratio (INR) calculation 2.6 [facility] [place] Ketones Test strip Ql (U)Ord ered By: Herberth Carlson on 11-21-2024 Ketones Ql (U) Negative Negative [facility] [place] Lactic acid measurementOrder ed By: Herberth Carlson on 11-21-2024 Lactic acid measurement 2.7 mmol/L High 0.0-2.0 [facility] Leukocyte esterase Test stri p Ql (U)Ordered By: Herberth Carlson on 11-21-2024 Urine leukocyte esterase detection by dipstick 500 /ul High Negative [facility] [place] Lymphocytes Auto (Unsp spec) [#/Vol]Ordered By: Herberth Carlson on 11-21-2024 Absolute lymphocyte count 1.33 X10^3/uL 0.83-4.51 [facility] [place] Lymphocytes/100 WBC Auto (Un sp spec)Ordered By: Herberth Carlson on 11-21-2024 Automated lymphocyte count as percentage of total leukocytes 13.9 % Low 19-41 [facility] [place] MCV (RBC) [Entitic vol]Order ed By: Herberth Carlson on 11-21-2024 MCV (mean corpuscular volume) determination 93.2 fL 80-94 [facility] [place] Mean corpuscular hemoglobin (MCH) determinationOrdered By: Herberth Carlson on 11-21-2024 Mean corpuscular hemoglobin (MCH) determination 31.4 pg 27.0-32.0 [facility] [place] Mean corpuscular hemoglobin concentration (MCHC) determinationOrdered By: Herberth Carlson on 11-21-2024 Mean corpuscular hemoglobin concentration (MCHC) determination 33.7 g/dL 32-36 [facility] [place] Mean platelet volume determi nationOrdered By: Herberth Carlson on 11-21-2024 Mean platelet volume determination 11.6 fl 6.2-12.0 [facility] [place] Monocyte percentageOrdered B y: Herberth Carlson on 11-21-2024 Monocyte percentage 9.2 % 0-10 [facility] Mucus LM Ql (Urine sed)Order ed By: Herberth Carlson on 11-21-2024 Mucus Ql (Urine sed) 0 SEEN /hpf [facility] Neutrophil percentageOrdered By: Herberth Carlson on 11-21-2024 Neutrophil percentage 68.7 % 47-70 [facility] Nitrite Test strip Ql (U)Ord ered By: Herberth Carlson on 11-21-2024 Nitrite Ql (U) Negative Negative [facility] [place] No Panel InformationOrdered By: Herberth Carlson on 11-21-2024 112 U/L High <38 [facility] [place] Nucleated red blood cell per centageOrdered By: Herberth Carlson on 11-21-2024 Nucleated red blood cell percentage 0 % 0-5 [facility] [place] Platelet countOrdered By: Kaylyn Carlson on 11-21-2024 Platelet count 167 K/mm3 150-450 [facility] [place] Potassium (Unsp spec) [Mass/ Vol]Ordered By: Herberth Carlson on 11-21-2024 Potassium measurement (mass/volume) 5.0 mmol/L 3.3-5.1 [facility] [place] Protein Test strip Ql (U)Ord ered By: Herberth Carlson on 11-21-2024 Protein Ql (U) 500 mg/dl High Negative [facility] [place] Urine protein assay by test strip, semi-quantitative 500 mg/dl High Negative [facility] [place] Prothrombin timeOrdered By: Herberth Carlson on 11-21-2024 Prothrombin time 28.2 SECONDS High 11.7-14.9 [facility] RBC Auto (Bld) [#/Vol]Ordere d By: Herberth Carlson on 11-21-2024 Automated blood erythrocyte count 2.64 M/mm3 Low 4.6-6.2 [facility] [place] Serum globulin measurementOr dered By: Herberth Carlson on 11-21-2024 Serum globulin measurement 2.7 g/dL 2.2-4.2 [facility] [place] Sodium levelOrdered By: Norman Carlson on 11-21-2024 Sodium level 132 mmol/L Low 133-145 [facility] [place] Specific gravity (U) [Rel de nsity]Ordered By: Herberth Carlson on 11-21-2024 Urine specific gravity measurement 1.015 1.002-1.030 [facility] [place] Squamous epithelial cells de tection in urine sediment by light microscopyOrdered By: Herberth Carlson on 11-21-2024 Epithelial cells.squamous LM Ql (Urine sed) 0 SEEN /hpf 0-5 [facility] [place] Squamous epithelial cells detection in urine sediment by light microscopy 0 SEEN /hpf [facility] [place] Total proteinOrdered By: Digna Carlson on 11-21-2024 Total protein 5.2 g/dL Low 5.9-8.4 [facility] [place] Urea nitrogen [Mass/Vol]Orde red By: Herberth Carlson on 11-21-2024 Serum or plasma urea nitrogen measurement (mass/volume) 28 mg/dL High 4-19 [facility] [place] Urine blood detectionOrdered By: Herberth Carlson on 11-21-2024 Urine blood detection 250 /ul High Negative [facility] Urine clarityOrdered By: Digna Carlson on 11-21-2024 Clarity (U) Sl Cldy Clear [facility] [place] Urine color determinationOrd ered By: Herberth Carlson on 11-21-2024 Color (U) Yellow Yellow [facility] [place] Urine cultureOrdered By: Digna Carlson on 11-21-2024 Bacteria identified Cx Nom (U) GNR lactose certified cytotechnologist Abnormal [facility] [place] Bacteria identified Cx Nom (U) GPC Poss Enterococcus sp Abnormal [facility] [place] Bacteria identified Cx Nom (U) Positive Abnormal [facility] [place] Urine glucose detectionOrder ed By: Herberth Carlson on 11-21-2024 Glucose Ql (U) Normal mg/dl Normal [facility] [place] Urine glucose detection Normal mg/dl Normal [facility] [place] Urine leukocyte esterase det ection by dipstickOrdered By: Herberth Carlson on 11-21-2024 Leukocyte esterase Test strip Ql (U) 500 /ul High Negative [facility] [place] Urine pHOrdered By: Herberth Carlson on 11-21-2024 pH (U) 6.0 [pH] 5.0 - 8.0 [facility] [place] Urine sediment bacteria coun t by microscopy (number/high power field)Ordered By: Herberth Carlson on 11-21-2024 Bacteria LM.HPF (Urine sed) [#/Area] RARE /hpf None Seen [facility] [place] Urine specific gravity measu rementOrdered By: Herberth Carlson on 11-21-2024 Specific gravity (U) [Rel density] 1.015 1.002-1.030 [facility] [place] Urine total bilirubin detect ion by test stripOrdered By: Herberth Carlson on 11-21-2024 Urine total bilirubin detection by test strip Negative Negative [facility] [place] Urine urobilinogen measureme ntOrdered By: Herberth Carlson on 11-21-2024 Urobilinogen Ql (U) Normal mg/dl Normal [facility] Venous blood ammonia measure mentOrdered By: Herberth Carlson on 11-21-2024 Ammonia (P) [Moles/Vol] 17.9 umol/L 16- [facility] [place] Venous blood ammonia measurement 17.9 umol/L 16-60 [facility] [place] White blood cell (WBC) count Ordered By: Herberth Carlson on 11-21-2024 White blood cell (WBC) count 9.5 K/mm3 4.4-11.0 [facility] [place] White blood cell countOrdere d By: Herberth Carlson on 11-21-2024 White blood cell count >100 SEEN /hpf 0-5 [facility] [place] White blood cell count >100 SEEN /hpf 0-5 [facility] pH (U)Ordered By: Herberth henao on 11-21-2024 Urine pH 6.0 5.0 - 8.0 [facility] [place] Bacteria Ur Culton Bacteria identified Cx Nom (U) CULTURE, URINE: Mixed microbiota, including predominantly: ORGANISM ID: 1 >=100,000 CFU/ml Mary glabrata No susceptibility testing done. Normal [facility] Comment on above: Performed By: #### 6 30-4 ####[facility] LABCLIA [id number] [address] [place] [address] [place] Bacteria identified Cx Nom (U) Normal [facility] Comment on above: Performed By: #### 2 4356-8, 630-4 ####[facility] LABCLIA [id number] [facility] [address] [place] [address] [place] Basic metabolic 2000 panelon 11-18-2024 Anion gap [Moles/Vol] 8 mmol/L Normal 8-15 [facility] Comment on above: Order Comment: Speci men Type: BLOOD SPECIMENOrdering Facility: [facility] Address: [address] [place] [address] Performed By: #### 2 4321-2, 40408-4, 2777-1 ####[facility] LABCLIA [id number] [address] [place] [address] [place] Calcium [Mass/Vol] 8.3 mg/dL Low 8.5-10.2 [facility] Comment on above: Order Comment: Speci men Type: BLOOD SPECIMENOrdering Facility: [facility] Address: [address] [place] [address] Performed By: #### 2 4321-2, 46209-5, 2777-1 ####[facility] LABCLIA [id number] [address] [place] [address] [place] Chloride [Moles/Vol] 102 mmol/L Normal 98-107 [facility] Comment on above: Order Comment: Speci men Type: BLOOD SPECIMENOrdering Facility: [facility] Address: [address] [place] [address] Performed By: #### 2 4321-2, 13319-9, 2777-1 ####[facility] LABCLIA [id number] [facility] [address] [place] [address] [place] CO2 [Moles/Vol] 19 mmol/L Low 22-30 [facility] Comment on above: Order Comment: Speci men Type: BLOOD SPECIMENOrdering Facility: [facility] Address: [address] [place] [id number] Performed By: #### 2 4321-2, 88404-7, 2776- ####[facility] LABIA [id number] [address] [address] [place] Creatinine [Mass/Vol] 0.95 mg/dL Normal 0.73-1.22 [facility] Comment on above: Order Comment: Speci men Type: BLOOD SPECIMENOrdering Facility: [facility] Address: [address] [place] [address] Performed By: #### 2 4321-2, 06075-7, 2776-08 ####[facility] [id number] [place] [address] [place] Creatinine and Glomerular filtration rate.predicted panel (S/P/Bld) 93 mL/min/1.73m??? Normal >=60 [facility] Comment on above: Order Comment: Speci men Type: BLOOD SPECIMENOrdering Facility: [facility] Address: [address] [place] [address] Result Comment: Patric mated Glomerular Filtration Rate [...] actual GFR. Performed By: #### 2 4321-2, 10098-1, 2776-08 ####[facility] LABIA [id number] [address] [address] [place] Glucose [Mass/Vol] 248 mg/dL High 74-99 [facility] Comment on above: Order Comment: Speci men Type: BLOOD SPECIMENOrdering Facility: [facility] Address: [address] [place], [place] [id number] Result Comment: The [place] (ADA) provides guidance for cutoff [...] Standards of Medical Care in Diabetes 2016, [place] [employer]. Diabetes Care. 2016.39(Suppl 1). Performed By: #### 2 4321-2, 47861-9, 2777- ####[facility] LABIA [id number] [place] [address] [place] Potassium [Moles/Vol] 4.4 mmol/L Normal 3.7-5.1 [facility] Comment on above: Order Comment: Speci men Type: BLOOD SPECIMENOrdering Facility: [facility] Address: [address] [place] [address] Performed By: #### 2 4321-2, 01988-3, 2776-08 ####[facility] [id number] [place] [address] [place] Sodium [Moles/Vol] 129 mmol/L Low 136-144 [facility] Comment on above: Order Comment: Speci men Type: BLOOD SPECIMENOrdering Facility: [facility] Address: [address] [place] [address] Performed By: #### 2 4321-2, 81330-4, 277- ####[facility] LABIA [id number] [place] [address] [place] Urea nitrogen [Mass/Vol] 16 mg/dL Normal 9-24 [facility] Comment on above: Order Comment: Speci men Type: BLOOD SPECIMENOrdering Facility: [facility] Address: [address] [place] [address] Performed By: #### 2 432-2, 21860-1, 2777-1 ####[facility] LABCLIA [id number] [address] [address] [place] CASE MANAGEMon 11-18-2024 CASE MANAGEM Normal [facility] CBC W Auto Differential pane l (Bld)on 11-18-2024 Basophils (Bld) [#/Vol] 10*3/uL Normal <0.11 [facility] Comment on above: Order Comment: Speci men Type: BLOOD SPECIMENOrdering Facility: [facility] Address: [address] [place] [address] Performed By: #### 5 7021-8 ####[facility] LABCLIA [id number] [place] [address] [place] Basophils/100 WBC (Bld) 0.0 % Normal [facility] Comment on above: Order Comment: Speci men Type: BLOOD SPECIMENOrdering Facility: [facility] Address: [address] [place] [address] Performed By: #### 5 7021-8 ####[facility] LABCLIA [id number] [place] [address] [place] Differential cell count method Nom (Bld) Auto Normal [facility] Comment on above: Order Comment: Speci men Type: BLOOD SPECIMENOrdering Facility: [facility] Address: [address] [place] [address] Performed By: #### 5 7021-8 ####[facility] LABCLIA [id number] [address] [address] [place] Eosinophils (Bld) [#/Vol] 10*3/uL Normal <0.46 [facility] Comment on above: Order Comment: Speci men Type: BLOOD SPECIMENOrdering Facility: [facility] Address: [address] [place] [address] Performed By: #### 5 7021-8 ####[facility] LABCLIA [id number] [address], [place] [address] [place] Eosinophils/100 WBC (Bld) 0.1 % Normal [facility] Comment on above: Order Comment: Speci men Type: BLOOD SPECIMENOrdering Facility: [facility] Address: [address] [place] [address] Performed By: #### 5 7021-8 ####[facility] LABCLIA [id number] [address], [place] [address] [place] Erythrocyte distribution width (RBC) [Ratio] 16.7 % High 11.5-15.0 [facility] Comment on above: Order Comment: Speci men Type: BLOOD SPECIMENOrdering Facility: [facility] Address: [address] [place] [address] Performed By: #### 5 7021-8 ####[facility] LABCLIA [id number] [address], [place] [address] [place] Hematocrit (Bld) [Volume fraction] 21.5 % Low 39.0-51.0 [facility] Comment on above: Order Comment: Speci men Type: BLOOD SPECIMENOrdering Facility: [facility] Address: [address] [place] [address] Performed By: #### 5 7021-8 ####[facility] LABCLIA [id number] [address], [place] [address] [place] Hemoglobin (Bld) [Mass/Vol] 7.2 g/dL Low 13.0-17.0 [facility] Comment on above: Order Comment: Speci men Type: BLOOD SPECIMENOrdering Facility: [facility] Address: [address] [place] [address] Performed By: #### 5 7021-8 ####[facility] LABCLIA [id number] [address], [place] [address] [place] Immature granulocytes (Bld) [#/Vol] 0.06 10*3/uL Normal <0.10 [facility] Comment on above: Order Comment: Speci men Type: BLOOD SPECIMENOrdering Facility: [facility] Address: [address] [place] [address] Performed By: #### 5 7021-8 ####[facility] LABCLIA [id number] [address] [place] Immature granulocytes/100 WBC (Bld) 0.7 % Normal [facility] Comment on above: Order Comment: Speci men Type: BLOOD SPECIMENOrdering Facility: [facility] Address: [address] [place] [address] Performed By: #### 5 7021-8 ####[facility] LABCLIA [id number] [place] [address] [place] Lymphocytes (Bld) [#/Vol] 0.61 10*3/uL Low 1.00-4.00 [facility] Comment on above: Order Comment: Speci men Type: BLOOD SPECIMENOrdering Facility: [facility] Address: [address] [place] [address] Performed By: #### 5 7021-8 ####[facility] LABCLIA [id number] [place] [address] [place] Lymphocytes/100 WBC (Bld) 7.3 % Normal [facility] Comment on above: Order Comment: Speci men Type: BLOOD SPECIMENOrdering Facility: [facility] Address: [address] [place] [address] Performed By: #### 5 7021-8 ####[facility] LABCLIA [id number] [place] [id number] [place] MCH (RBC) [Entitic mass] 30.9 pg Normal 26.0-34.0 [facility] Comment on above: Order Comment: Speci men Type: BLOOD SPECIMENOrdering Facility: [facility] Address: [address] [place] [address] Performed By: #### 5 7021-8 ####[facility] LABCLIA [id number] [place] [address] [place] MCHC (RBC) [Mass/Vol] 33.5 g/dL Normal 30.5-36.0 [facility] Comment on above: Order Comment: Speci men Type: BLOOD SPECIMENOrdering Facility: [facility] Address: [address] [place] [address] Performed By: #### 5 7021-8 ####[facility] LABIA [id number] [place] [address] [place] MCV (RBC) [Entitic vol] 92.3 fL Normal 80.0-100.0 [facility] Comment on above: Order Comment: Speci men Type: BLOOD SPECIMENOrdering Facility: [facility] Address: [address] [place] [address] Performed By: #### 5 7021-8 ####[facility] LABIA [id number] [place] [address] [place] Monocytes (Bld) [#/Vol] 0.72 10*3/uL Normal <0.87 [facility] Comment on above: Order Comment: Speci men Type: BLOOD SPECIMENOrdering Facility: [facility] Address: [address] [place] [address] Performed By: #### 5 7021-8 ####[facility] LABIA [id number] [place] [address] [place] Monocytes/100 WBC (Bld) 8.7 % Normal [facility] Comment on above: Order Comment: Speci men Type: BLOOD SPECIMENOrdering Facility: [facility] Address: [address] [place] [address] Performed By: #### 5 7021-8 ####[facility] LABIA [id number] [place] [address] [place] Neutrophils (Bld) [#/Vol] 6.92 10*3/uL Normal 1.45-7.50 [facility] Comment on above: Order Comment: Speci men Type: BLOOD SPECIMENOrdering Facility: [facility] Address: [address] [place] [address] Performed By: #### 5 7021-8 ####[facility] LABIA [id number] [place] [address] [place] Neutrophils/100 WBC (Bld) 83.2 % Normal [facility] Comment on above: Order Comment: Speci men Type: BLOOD SPECIMENOrdering Facility: [facility] Address: [address] [place] [address] Performed By: #### 5 7021-8 ####[facility] LABIA [id number] [place] [address] [place] Nucleated RBC (Bld) [#/Vol] 10*3/uL Normal <0.01 [facility] Comment on above: Order Comment: Speci men Type: BLOOD SPECIMENOrdering Facility: [facility] Address: [address] [place] [address] Performed By: #### 5 7021-8 ####[facility] LABIA [id number] [place] [address] [place] Nucleated RBC/100 WBC (Bld) [Ratio] 0.0 /100 WBC Normal [facility] Comment on above: Order Comment: Speci men Type: BLOOD SPECIMENOrdering Facility: [facility] Address: [address] [place] [address] Performed By: #### 5 7021-8 ####[facility] LABIA [id number] [place] [address] [place] Platelet mean volume (Bld) [Entitic vol] 12.1 fL Normal 9.0-12.7 [facility] Comment on above: Order Comment: Speci men Type: BLOOD SPECIMENOrdering Facility: [facility] Address: [address] [place] [address] Performed By: #### 5 7021-8 ####[facility] LABIA [id number] [place] [address] [place] Platelets (Bld) [#/Vol] 76 10*3/uL Low 150-400 [facility] Comment on above: Order Comment: Speci men Type: BLOOD SPECIMENOrdering Facility: [facility] Address: [address] [place] [address] Result Comment: No c lot detected. Performed By: #### 5 7021-8 ####[facility] LABIA [id number] [place] [address] [place] RBC (Bld) [#/Vol] 2.33 10*6/uL Low 4.20-6.00 [facility] Comment on above: Order Comment: Speci men Type: BLOOD SPECIMENOrdering Facility: [facility] Address: [address] [place] [address] Performed By: #### 5 7021-8 ####[facility] [id number] [place] [address] [place] WBC (Bld) [#/Vol] 8.32 10*3/uL Normal 3.70-11.00 [facility] Comment on above: Order Comment: Speci men Type: BLOOD SPECIMENOrdering Facility: [facility] Address: [address] [place] [address] Performed By: #### 5 7021-8 ####[facility] LABIA [id number] [place] [id number] [place] CNCOon 11-18-2024 CNCO Letter Text Normal [facility] CNDSon 11-18-2024 CNDS Normal [facility] CNPNon 11-18-2024 CNPN Normal [facility] Fibrinogen PPP-mCncon 2024 Fibrinogen Coag (PPP) [Mass/Vol] 104 mg/dL Low 200-400 [facility] Comment on above: Order Comment: Speci men Type: BLOOD SPECIMENOrdering Facility: [facility] Address: [address] [place] [address] Performed By: #### 3 255-7, 58544-5 ####[facility] LABIA [id number] [place] [id number] [place] Hepatic function 2000 panelo n 11-18-2024 Albumin [Mass/Vol] 2.6 g/dL Low 3.9-4.9 [facility] Comment on above: Order Comment: Speci men Type: BLOOD SPECIMENOrdering Facility: [facility] Address: [address] [place] [address] Performed By: #### 2 4321-2, 93602-4, 2777-1 ####[facility] LABIA [id number] [place] [address] [place] ALP [Catalytic activity/Vol] 245 U/L High 38-113 [facility] Comment on above: Order Comment: Speci men Type: BLOOD SPECIMENOrdering Facility: [facility] Address: [address] [place] [address] Performed By: #### 2 4321-2, 60246-9, 2777-1 ####[facility] LABIA [id number] [address] [place] ALT [Catalytic activity/Vol] 31 U/L Normal 10-54 [facility] Comment on above: Order Comment: Speci men Type: BLOOD SPECIMENOrdering Facility: [facility] Address: [address] [place], [place] [address] Performed By: #### 2 4321-2, 85341-9, 2777-1 ####[facility] LABIA [id number] [place] [id number] [place] AST [Catalytic activity/Vol] 52 U/L High 14-40 [facility] Comment on above: Order Comment: Speci men Type: BLOOD SPECIMENOrdering Facility: [facility] Address: [address] [place], [place] [address] Performed By: #### 2 4321-2, 89993-3, 2777-1 ####[facility] LABCLIA [id number] [place] [id number] [place] Bilirubin [Mass/Vol] 1.2 mg/dL Normal 0.2-1.3 [facility] Comment on above: Order Comment: Speci men Type: BLOOD SPECIMENOrdering Facility: [facility] Address: [address] [place] [address] Performed By: #### 2 4321-2, 33410-6, 2777- ####[facility] LABIA [id number] [place] [address] [place] Bilirubin.conjugated [Mass/Vol] 0.7 mg/dL High <0.3 [facility] Comment on above: Order Comment: Speci men Type: BLOOD SPECIMENOrdering Facility: [facility] Address: [address] [place] [address] Performed By: #### 2 4321-2, 85262-3, 277- ####[facility] LABIA [id number] [place] [address] [place] Protein [Mass/Vol] 5.0 g/dL Low 6.3-8.0 [facility] Comment on above: Order Comment: Speci men Type: BLOOD SPECIMENOrdering Facility: [facility] Address: [address] [place] [address] Performed By: #### 2 4321-2, 00754-0, 2777- ####[facility] LABIA [id number] [place] [id number] [place] NURSING PROGon 11-18-2024 NURSING PROG Normal [facility] PT panel Coag (PPP)on 2024 INR Coag (PPP) [Relative time] 2.0 {INR} High 0.9-1.3 [facility] Comment on above: Order Comment: Speci men Type: BLOOD SPECIMENOrdering Facility: [facility] Address: [address] [place] [address] Result Comment: Sarah min K Antagonist (VKA) Therapeutic Range: INR 2 to 3 (Target INR of 2.5)Note: For patients treated with VKA drugs, such as warfarin, the [place] [employer] 2012 Guideline recommends [...] al. Chest 2012, 141:7S-47SNishbethel RA, et al. [facility] 2017, 70: 252-289 Performed By: #### 3 255-7, 81652-6 ####[facility] [id number] [place] [address] [place] PT Coag (PPP) [Time] 20.9 s High 9.7-13.0 [facility] Comment on above: Order Comment: Ezekiel ramirez Type: BLOOD SPECIMENOrdering Facility: [facility] Address: [address] [place] [address] Performed By: #### 3 255-7, 76419-3 ####[facility] [id number] [place] [id number] [place] Phosphate SerPl-mCncon 11-18 Phosphate [Mass/Vol] 2.4 mg/dL Low 2.7-4.8 [facility] Comment on above: Order Comment: Ezekiel ramirez Type: BLOOD SPECIMENOrdering Facility: [facility] Address: [address] [place] [address] Performed By: #### 2 4321-2, 42450-5, 2777-1 ####[facility] LABCLIA [id number] [place] [address] [place] TYPE + SCREENon 11-18-2024 ABO O Normal [facility] Comment on above: Order Comment: Speci men Type: BLOOD SPECIMENOrdering Facility: [facility] Address: [address] [place] [address] Performed By: #### T SCR ####[facility] BLOOD BANKCLIA [id number] [place] [address] [place] Rh Nom (Bld) Positive Normal [facility] Comment on above: Order Comment: Speci men Type: BLOOD SPECIMENOrdering Facility: [facility] Address: [address] [place] [address] Performed By: #### T SCR ####[facility] BLOOD BANKCLIA [id number] [place] [address] [place] TYPE AND SCREEN EXPIRATION 11/21/2024 23:59 Normal [facility] Comment on above: Order Comment: Speci men Type: BLOOD SPECIMENOrdering Facility: [facility] Address: [address] [place] [address] Performed By: #### T SCR ####[facility] BLOOD BANKCLIA [id number] [place] [address] [place] Urinalysis complete panel (U )on 11-18-2024 BACTERIA UL 1671.0 uL High Negative [facility] Comment on above: Order Comment: Speci men Type: URINE SPECIMENOrdering Facility: [facility] Address: [address] [place] [address] Performed By: #### 2 4356-8, 630-4 ####[facility] LABCLIA [id number] [place] [address] [place] Bilirubin Ql (U) 2+ Abnormal Negative [facility] Comment on above: Order Comment: Speci men Type: URINE SPECIMENOrdering Facility: [facility] Address: [address] [place] [address] Result Comment: Sugg est correlation with clinical findings and serum bilirubin if clinically indicated. Performed By: #### 2 4356-8, 630-4 ####[facility] LABCLIA [id number] [address] [place] [address] [place] CALCIUM OXALATE CRYSTALS (UA) Few Abnormal None Seen [facility] Comment on above: Order Comment: Speci men Type: URINE SPECIMENOrdering Facility: [facility] Address: [address] [place] [address] Performed By: #### 2 4356-8, 630-4 ####[facility] LABCLIA [id number] [address], [facility] [place] Clarity (Unsp spec) Turbid Abnormal Clear [facility] Comment on above: Order Comment: Speci men Type: URINE SPECIMENOrdering Facility: [facility] Address: [address] [place] [address] Performed By: #### 2 4356-8, 630-4 ####[facility] LABCLIA [id number] [place] [id number] [place] Color (U) Red Abnormal Yellow [facility] Comment on above: Order Comment: Speci men Type: URINE SPECIMENOrdering Facility: [facility] Address: [address] [place] [address] Performed By: #### 2 4356-8, 630-4 ####[facility] LABCLIA [id number] [address] [address] [place] Epithelial cells LM.HPF (Urine sed) [#/Area] None Seen Normal [facility] Comment on above: Order Comment: Speci men Type: URINE SPECIMENOrdering Facility: [facility] Address: [address] [place] [address] Performed By: #### 2 4356-8, 630-4 ####[facility] LABCLIA [id number] [address] [place] [address] [place] Glucose Test strip (U) [Mass/Vol] Negative Normal Negative [facility] Comment on above: Order Comment: Speci men Type: URINE SPECIMENOrdering Facility: [facility] Address: [address] [place] [address] Performed By: #### 2 4356-8, 630-4 ####[facility] LABCLIA [id number] [facility] [place] [address] [place] Hemoglobin Ql (U) 2+ Abnormal Negative [facility] Comment on above: Order Comment: Speci men Type: URINE SPECIMENOrdering Facility: [facility] Address: [address] [place] [address] Performed By: #### 2 4356-8, 630-4 ####[facility] LABCLIA [id number] [address], [facility]95 [place] Hyaline casts (Urine sed) [#/Area] 0 /[LPF] Normal 0 /LPF [facility] Comment on above: Order Comment: Speci men Type: URINE SPECIMENOrdering Facility: [facility] Address: [address] [place] [address] Performed By: #### 2 4356-8, 630-4 ####[facility] LABCLIA [id number] [address], [facility]95 [place] Ketones Ql (U) Negative Normal Negative [facility] Comment on above: Order Comment: Speci men Type: URINE SPECIMENOrdering Facility: [facility] Address: [address] [place] [address] Performed By: #### 2 4356-8, 630-4 ####[facility] LABCLIA [id number] [address] [place] [address] [place] Leukocyte esterase Test strip Ql (U) 3+ Abnormal Negative [facility] Comment on above: Order Comment: Speci men Type: URINE SPECIMENOrdering Facility: [facility] Address: [address] [place] [address] Performed By: #### 2 4356-8, 630-4 ####[facility] LABCLIA [id number] [place] [address] [place] Nitrite Ql (U) Negative Normal Negative [facility] Comment on above: Order Comment: Speci men Type: URINE SPECIMENOrdering Facility: [facility] Address: [address] [place] [address] Result Comment: Resu lt rechecked. Performed By: #### 2 4356-8, 630-4 ####[facility] LABCLIA [id number] [place] [address] [place] pH (U) 5.0 [pH] Normal <8.5 [facility] Comment on above: Order Comment: Speci men Type: URINE SPECIMENOrdering Facility: [facility] Address: [address] [place] [address] Performed By: #### 2 4356-8, -4 ####[facility] LABCLIA [id number] [place] [address] [place] Protein (U) [Mass/Vol] 2+ Abnormal Negative [facility] Comment on above: Order Comment: Speci men Type: URINE SPECIMENOrdering Facility: [facility] Address: [address] [place] [address] Performed By: #### 2 4356-8, 630-4 ####[facility] LABCLIA [id number] [place] [id number] [place] RBC LM.HPF (Urine sed) [#/Area] /[HPF] Abnormal 0-2 /HPF [facility] Comment on above: Order Comment: Speci men Type: URINE SPECIMENOrdering Facility: [facility] Address: [address] [place] [address] Performed By: #### 2 4356-8, 630-4 ####[facility] LABCLIA [id number] [place] [address] [place] Specific gravity (U) [Rel density] 1.021 Normal 1.005-1.030 [facility] Comment on above: Order Comment: Speci men Type: URINE SPECIMENOrdering Facility: [facility] Address: [address] [place] [address] Performed By: #### 2 4356-8, 630-4 ####[facility] LABIA [id number] [place] [address] [place] Urobilinogen Ql (U) 0.2 EU/dL Normal 0.2-1.0 EU/dL [facility] Comment on above: Order Comment: Speci men Type: URINE SPECIMENOrdering Facility: [facility] Address: [address] [place] [address] Performed By: #### 2 4356-8, 630-4 ####[facility] [id number] [place] [address] [place] WBC LM.HPF (Urine sed) [#/Area] /[HPF] Abnormal 0-5 /HPF [facility] Comment on above: Order Comment: Speci men Type: URINE SPECIMENOrdering Facility: [facility] Address: [address] [place] [address] Performed By: #### 2 4356-8, 630-4 ####[facility] [id number] [place] [address] [place] Yeast.budding LM.HPF (Urine sed) [#/Area] Present Abnormal None Seen [facility] Comment on above: Order Comment: Speci men Type: URINE SPECIMENOrdering Facility: [facility] Address: [address] [place] [address] Performed By: #### 2 4356-8, 630-4 ####[facility] LABIA [id number] [address] [address] [place] Basic metabolic 2000 panelon 11-17-2024 Anion gap [Moles/Vol] 10 mmol/L Normal 8-15 [facility] Comment on above: Order Comment: Speci men Type: BLOOD SPECIMENOrdering Facility: [facility] Address: [address] [place] [address] Performed By: #### 2 4321-2, 67712-1, 2777-1 ####[facility] LABCLIA [id number] [place] [address] [place] Calcium [Mass/Vol] 8.9 mg/dL Normal 8.5-10.2 [facility] Comment on above: Order Comment: Speci men Type: BLOOD SPECIMENOrdering Facility: [facility] Address: [address] [place] [address] Performed By: #### 2 4321-2, 23877-8, 277-1 ####[facility] LABCLIA [id number] [place] [address] [place] Chloride [Moles/Vol] 105 mmol/L Normal 98-107 [facility] Comment on above: Order Comment: Speci men Type: BLOOD SPECIMENOrdering Facility: [facility] Address: [address] [place] [address] Performed By: #### 2 4321-2, 66265-5, 277-1 ####[facility] LABCLIA [id number] [place] [id number] [place] CO2 [Moles/Vol] 17 mmol/L Low 22-30 [facility] Comment on above: Order Comment: Speci men Type: BLOOD SPECIMENOrdering Facility: [facility] Address: [address] [place] [address] Performed By: #### 2 4321-2, 03603-4, 2777-1 ####[facility] LABCLIA [id number] [place] [id number] [place] Creatinine [Mass/Vol] 0.77 mg/dL Normal 0.73-1.22 [facility] Comment on above: Order Comment: Ezekiel ramirez Type: BLOOD SPECIMENOrdering Facility: [facility] Address: [address] [place] [address] Performed By: #### 2 4321-2, 43713-7, 2777-1 ####[facility] LABCLIA [id number] [place] [address] [place] Creatinine and Glomerular filtration rate.predicted panel (S/P/Bld) 104 mL/min/1.73m??? Normal >=60 [facility] Comment on above: Order Comment: Ezekiel ramirez Type: BLOOD SPECIMENOrdering Facility: [facility] Address: [address] [place] [address] Result Comment: Patric mated Glomerular Filtration Rate [...] actual GFR. Performed By: #### 2 4321-2, 26889-7, 2777- ####[facility] LABCLIA [id number] [place] [address] [place] Glucose [Mass/Vol] 291 mg/dL High 74-99 [facility] Comment on above: Order Comment: Ezekiel ramirez Type: BLOOD SPECIMENOrdering Facility: [facility] Address: [address] [place] [address] Result Comment: The [place] [employer] (ADA) provides guidance for cutoff [...] Standards of Medical Care in Diabetes 2016, [place] [employer]. Diabetes Care. 2016.39(Suppl 1). Performed By: #### 2 4321-2, 81990-1, 2776- ####[facility] LABCLIA [id number] [address] [address] [place] Potassium [Moles/Vol] 4.5 mmol/L Normal 3.7-5.1 [facility] Comment on above: Order Comment: Speci men Type: BLOOD SPECIMENOrdering Facility: [facility] Address: [address] [place] [address] Performed By: #### 2 4321-2, 13943-6, 2776-08 ####[facility] LABCLIA [id number] [address] [address] [place] Sodium [Moles/Vol] 132 mmol/L Low 136-144 [facility] Comment on above: Order Comment: Speci men Type: BLOOD SPECIMENOrdering Facility: [facility] Address: [address] [place] [address] Performed By: #### 2 4321-2, 41698-8, 2776-08 ####[facility] LABCLIA [id number] [address] [address] [place] Urea nitrogen [Mass/Vol] 9 mg/dL Normal 9-24 [facility] Comment on above: Order Comment: Speci men Type: BLOOD SPECIMENOrdering Facility: [facility] Address: [address] [place] [address] Performed By: #### 2 4321-2, 12335-2, 2776-08 ####[facility] LABCLIA [id number] [address] [address] [place] CASE MANAGEMon 11-17-2024 CASE MANAGEM Normal [facility] CBC W Auto Differential pane l (Bld)on 11-17-2024 Basophils (Bld) [#/Vol] 10*3/uL Normal <0.11 [facility] Comment on above: Order Comment: Speci men Type: BLOOD SPECIMENOrdering Facility: [facility] Address: [address] [place] [address] Performed By: #### 5 7021-8 ####[facility] LABCLIA [id number] [place] [address] [place] Basophils/100 WBC (Bld) 0.0 % Normal [facility] Comment on above: Order Comment: Speci men Type: BLOOD SPECIMENOrdering Facility: [facility] Address: [address] [place] [address] Performed By: #### 5 7021-8 ####[facility] LABCLIA [id number] [place] [address] [place] Differential cell count method Nom (Bld) Auto Normal [facility] Comment on above: Order Comment: Speci men Type: BLOOD SPECIMENOrdering Facility: [facility] Address: [address] [place] [address] Performed By: #### 5 7021-8 ####[facility] LABCLIA [id number] [place] [address] [place] Eosinophils (Bld) [#/Vol] 10*3/uL Normal <0.46 [facility] Comment on above: Order Comment: Speci men Type: BLOOD SPECIMENOrdering Facility: [facility] Address: [address] [place] [address] Performed By: #### 5 7021-8 ####[facility] LABCLIA [id number] [place] [address] [place] Eosinophils/100 WBC (Bld) 0.0 % Normal [facility] Comment on above: Order Comment: Speci men Type: BLOOD SPECIMENOrdering Facility: [facility] Address: [address] [place] [address] Performed By: #### 5 7021-8 ####[facility] LABCLIA [id number] [place] [address] [place] Erythrocyte distribution width (RBC) [Ratio] 16.9 % High 11.5-15.0 [facility] Comment on above: Order Comment: Speci men Type: BLOOD SPECIMENOrdering Facility: [facility] Address: [address] [place] [address] Performed By: #### 5 7021-8 ####[facility] LABIA [id number] [place] [address] [place] Hematocrit (Bld) [Volume fraction] 22.7 % Low 39.0-51.0 [facility] Comment on above: Order Comment: Speci men Type: BLOOD SPECIMENOrdering Facility: [facility] Address: [address] [place] [address] Performed By: #### 5 7021-8 ####[facility] LABIA [id number] [place] [address] [place] Hemoglobin (Bld) [Mass/Vol] 7.7 g/dL Low 13.0-17.0 [facility] Comment on above: Order Comment: Speci men Type: BLOOD SPECIMENOrdering Facility: [facility] Address: [address] [place] [address] Performed By: #### 5 7021-8 ####[facility] LABIA [id number] [place] [address] [place] Immature granulocytes (Bld) [#/Vol] 0.03 10*3/uL Normal <0.10 [facility] Comment on above: Order Comment: Speci men Type: BLOOD SPECIMENOrdering Facility: [facility] Address: [address] [place] [address] Performed By: #### 5 7021-8 ####[facility] LABIA [id number] [place] [address] [place] Immature granulocytes/100 WBC (Bld) 0.9 % Normal [facility] Comment on above: Order Comment: Speci men Type: BLOOD SPECIMENOrdering Facility: [facility] Address: [address] [place] [address] Performed By: #### 5 7021-8 ####[facility] LABCLIA [id number] [place] [address] [place] Lymphocytes (Bld) [#/Vol] 0.28 10*3/uL Low 1.00-4.00 [facility] Comment on above: Order Comment: Speci men Type: BLOOD SPECIMENOrdering Facility: [facility] Address: [address] [place] [address] Performed By: #### 5 7021-8 ####[facility] LABCLIA [id number] [place] [address] [place] Lymphocytes/100 WBC (Bld) 8.3 % Normal [facility] Comment on above: Order Comment: Speci men Type: BLOOD SPECIMENOrdering Facility: [facility] Address: [address] [place] [address] Performed By: #### 5 7021-8 ####[facility] LABCLIA [id number] [place] [address] [place] MCH (RBC) [Entitic mass] 31.7 pg Normal 26.0-34.0 [facility] Comment on above: Order Comment: Speci men Type: BLOOD SPECIMENOrdering Facility: [facility] Address: [address] [place] [address] Performed By: #### 5 7021-8 ####[facility] LABCLIA [id number] [place] [address] [place] MCHC (RBC) [Mass/Vol] 33.9 g/dL Normal 30.5-36.0 [facility] Comment on above: Order Comment: Speci men Type: BLOOD SPECIMENOrdering Facility: [facility] Address: [address] [place] [address] Performed By: #### 5 7021-8 ####[facility] LABCLIA [id number] [address], [place] [address] [place] MCV (RBC) [Entitic vol] 93.4 fL Normal 80.0-100.0 [facility] Comment on above: Order Comment: Speci men Type: BLOOD SPECIMENOrdering Facility: [facility] Address: [address] [place] [address] Performed By: #### 5 7021-8 ####[facility] LABCLIA [id number] [address], [facility]95 [place] Monocytes (Bld) [#/Vol] 0.17 10*3/uL Normal <0.87 [facility] Comment on above: Order Comment: Speci men Type: BLOOD SPECIMENOrdering Facility: [facility] Address: [address] [place] [address] Performed By: #### 5 7021-8 ####[facility] LABCLIA [id number] [place] [address] [place] Monocytes/100 WBC (Bld) 5.0 % Normal [facility] Comment on above: Order Comment: Speci men Type: BLOOD SPECIMENOrdering Facility: [facility] Address: [address] [place] [address] Performed By: #### 5 7021-8 ####[facility] LABCLIA [id number] [place] [id number] [place] Neutrophils (Bld) [#/Vol] 2.89 10*3/uL Normal 1.45-7.50 [facility] Comment on above: Order Comment: Speci men Type: BLOOD SPECIMENOrdering Facility: [facility] Address: [address] [place] [address] Performed By: #### 5 7021-8 ####[facility] LABCLIA [id number] [place] [id number] [place] Neutrophils/100 WBC (Bld) 85.8 % Normal [facility] Comment on above: Order Comment: Speci men Type: BLOOD SPECIMENOrdering Facility: [facility] Address: [address] [place] [address] Performed By: #### 5 7021-8 ####[facility] LABCLIA [id number] [facility] [address] [place] Nucleated RBC (Bld) [#/Vol] 10*3/uL Normal <0.01 [facility] Comment on above: Order Comment: Speci men Type: BLOOD SPECIMENOrdering Facility: [facility] Address: [address] [place] [address] Performed By: #### 5 7021-8 ####[facility] LABCLIA [id number] [place] [address] [place] Nucleated RBC/100 WBC (Bld) [Ratio] 0.0 /100 WBC Normal [facility] Comment on above: Order Comment: Speci men Type: BLOOD SPECIMENOrdering Facility: [facility] Address: [address] [place] [address] Performed By: #### 5 7021-8 ####[facility] LABCLIA [id number] [place] [address] [place] Platelet mean volume (Bld) [Entitic vol] 12.0 fL Normal 9.0-12.7 [facility] Comment on above: Order Comment: Speci men Type: BLOOD SPECIMENOrdering Facility: [facility] Address: [address] [place] [address] Performed By: #### 5 7021-8 ####[facility] LABCLIA [id number] [place] [address] [place] Platelets (Bld) [#/Vol] 57 10*3/uL Low 150-400 [facility] Comment on above: Order Comment: Speci men Type: BLOOD SPECIMENOrdering Facility: [facility] Address: [address] [place] [address] Performed By: #### 5 7021-8 ####[facility] LABIA [id number] [place] [address] [place] RBC (Bld) [#/Vol] 2.43 10*6/uL Low 4.20-6.00 [facility] Comment on above: Order Comment: Speci men Type: BLOOD SPECIMENOrdering Facility: [facility] Address: [address] [place] [address] Performed By: #### 5 7021-8 ####[facility] LABIA [id number] [place] [address] [place] WBC (Bld) [#/Vol] 3.37 10*3/uL Low 3.70-11.00 [facility] Comment on above: Order Comment: Speci men Type: BLOOD SPECIMENOrdering Facility: [facility] Address: [address] [place] [address] Performed By: #### 5 7021-8 ####[facility] LABIA [id number] [place] [address] [place] CONSULT PROGon 11-17-2024 CONSULT PROG Normal [facility] Fact Xa PPP-aCncon Coagulation factor X activated act Coag Qn (PPP) <0.10 Normal <0.10 [facility] Comment on above: Order Comment: Ezekiel ramirez Type: BLOOD SPECIMENOrdering Facility: [facility] Address: [address] [place] [address] Result Comment: The recommended therapeutic range for treatment of venous and arterial thrombosis with intravenous unfractionated heparin is an anti Xa activity level of 0.3 to 0.7 IU/mL. In patients with concomitant therapy with thrombolytic agents and/or platelet glycoprotein IIb/IIIa antagonists, the recommended therapeutic range is an anti Xa activity level of 0.2 to 0.5 IU/mL. Performed By: #### 3 217-7 ####[facility] LABCLIA [id number] [place] [id number] [place] Fibrinogen PPP-mCncon 2024 Fibrinogen Coag (PPP) [Mass/Vol] 114 mg/dL Low 200-400 [facility] Comment on above: Order Comment: Speci men Type: BLOOD SPECIMENOrdering Facility: [facility] Address: [address] [place] [address] Performed By: #### 3 255-7, 37574-4 ####[facility] LABCLIA [id number] [place] [address] [place] Hepatic function 2000 panelo n 11-17-2024 Albumin [Mass/Vol] 2.7 g/dL Low 3.9-4.9 [facility] Comment on above: Order Comment: Speci men Type: BLOOD SPECIMENOrdering Facility: [facility] Address: [address] [place] [address] Performed By: #### 2 4321-2, 95220-6, 2777-1 ####[facility] LABIA [id number] [place] [address] [place] ALP [Catalytic activity/Vol] 276 U/L High 38-113 [facility] Comment on above: Order Comment: Speci men Type: BLOOD SPECIMENOrdering Facility: [facility] Address: [address] [place] [address] Performed By: #### 2 4321-2, 96554-2, 2777-1 ####[facility] LABCLIA [id number] [place] [id number] [place] ALT [Catalytic activity/Vol] 35 U/L Normal 10-54 [facility] Comment on above: Order Comment: Speci men Type: BLOOD SPECIMENOrdering Facility: [facility] Address: [address] [place] [address] Performed By: #### 2 4321-2, 28273-4, 2777-1 ####[facility] LABCLIA [id number] [address] [address] [place] AST [Catalytic activity/Vol] 80 U/L High 14-40 [facility] Comment on above: Order Comment: Speci men Type: BLOOD SPECIMENOrdering Facility: [facility] Address: [address] [place] [address] Performed By: #### 2 4321-2, 17499-5, 277-1 ####[facility] LABCLIA [id number] [place] [id number] [place] Bilirubin [Mass/Vol] 1.8 mg/dL High 0.2-1.3 [facility] Comment on above: Order Comment: Speci men Type: BLOOD SPECIMENOrdering Facility: [facility] Address: [address] [place] [address] Performed By: #### 2 4321-2, 56523-4, 277- ####[facility] LABCLIA [id number] [place] [address] [place] Bilirubin.conjugated [Mass/Vol] 1.0 mg/dL High <0.3 [facility] Comment on above: Order Comment: Speci men Type: BLOOD SPECIMENOrdering Facility: [facility] Address: [address] [place] [address] Performed By: #### 2 4321-2, 47119-2, 2776- ####[facility] LABCLIA [id number] [place] [id number] [place] Protein [Mass/Vol] 5.2 g/dL Low 6.3-8.0 [facility] Comment on above: Order Comment: Speci men Type: BLOOD SPECIMENOrdering Facility: [facility] Address: [address] [place] [address] Performed By: #### 2 4321-2, 43099-7, 277-1 ####[facility] LABCLIA [id number] [address] [address] [place] NUTRITIONon 11-17-2024 NUTRITION Normal [facility] PSA/PROSTATE SPECIFIC ANTIGE N SCREENINGon 11-17-2024 Prostate specific Ag [Mass/Vol] 0.52 ng/mL Normal <2.60 [facility] Comment on above: Order Comment: Speci men Type: BLOOD SPECIMENOrdering Facility: [facility] Address: [address] [place] [address] Result Comment: Tota l PSA test methodology used is the Electrochemiluminescence Immunoassay by [employer]. Total PSA values by differing methodologies cannot be interchanged. Performed By: #### P SAS1 ####[facility] LABCLIA [id number] [address] [place] PT panel Coag (PPP)on 2024 INR Coag (PPP) [Relative time] 2.0 {INR} High 0.9-1.3 [facility] Comment on above: Order Comment: Speci men Type: BLOOD SPECIMENOrdering Facility: [facility] Address: [address] [place] [address] Result Comment: Sarah min K Antagonist (VKA) Therapeutic Range: INR 2 to 3 (Target INR of 2.5)Note: For patients treated with VKA drugs, such as warfarin, the [place] [employer] 2012 Guideline recommends [...] 3).Tammi GH, et al. Chest 2012, 141:7S-47SHector HIRSCH et al. [facility] 2017, 70: 252-289 Performed By: #### 3 255-7, 84252-2 ####[facility] [facility] LAB[facility] [id number] [place] [id number] [place] PT Coag (PPP) [Time] 20.6 s High 9.7-13.0 [facility] Comment on above: Order Comment: Speci men Type: BLOOD SPECIMENOrdering Facility: [facility] Address: [address] [place] [address] Performed By: #### 3 255-7, 13980-0 ####[facility] LABIA [id number] [place] [address] [place] PTT, ANTICOAGULANT THERAPYon 11-17-2024 aPTT Coag (PPP) [Time] 41.6 s High 23.0-32.4 [facility] Comment on above: Order Comment: Speci men Type: BLOOD SPECIMENOrdering Facility: [facility] Address: [address] [place] [address] Performed By: #### P TTAC ####[facility] LABIA [id number] [place] [address] [place] Phosphate SerPl-mCncon 11-17 Phosphate [Mass/Vol] 1.9 mg/dL Low 2.7-4.8 [facility] Comment on above: Order Comment: Speci men Type: BLOOD SPECIMENOrdering Facility: [facility] Address: [address] [place] [address] Performed By: #### 2 4321-2, 81041-6, 2777-1 ####[facility] LABIA [id number] [place] [id number] [place] THERAPY NTon 11-17-2024 THERAPY NT Normal [facility] aPTT PPPon 11-17-2024 aPTT Coag (PPP) [Time] s High 23.0-32.4 [facility] Comment on above: Order Comment: Speci men Type: BLOOD SPECIMENOrdering Facility: [facility] Address: [address] [place] [address] Result Comment: Resu lt rechecked.Sample checked for clot. Performed By: #### 1 4979-9, PTTAC ####[facility] LABCLIA [id number] [place] [address] [place] ANES POSTPROC EVALon 11-16-2 025 ANES POSTPROC EVAL Normal [facility] ANES PRE-OPon 11-16-2024 ANES PRE-OP Normal [facility] Albumin Fld-mCncon 5 Albumin (Body fld) [Mass/Vol] 0.2 g/dL Normal See Comment [facility] Comment on above: Order Comment: Speci men Type: FLUID SPECIMENOrdering Facility: [facility] Address: [address] [place] [address] Result Comment: Body Fluid Albumin may be [...] Clinical Chemistry Approved Guideline. CLSI document C49A. Joe, [place]: Clinical Laboratory Standards [place]: 2007.2. Amy JACKSON. Serum to ascites albumin gradient. UpToDate. 2015. Accessed on November 15, 2015.This test was developed, and its performance characteristics determined by the [facility] Department of Pathology and Laboratory Medicine. It has not been cleared or approved by the FDA. The [facility] Department of Pathology and Laboratory Medicine is regulated under CLIA as qualified to perform high-complexity testing. This test is used for clinical purposes. It should not be regarded as investigational or for research. Performed By: #### 1 795-4, 2881-1, 1747-5 ####[facility] LABCLIA [id number] [place] [id number] [place] Fluid Nom (Body fld) Ascites Fluid Normal C [facility] Comment on above: Order Comment: Speci men Type: FLUID SPECIMENOrdering Facility: [facility] Address: [address] [place] [address] Performed By: #### 1 795-4, 2881-1, 1747-5 ####[facility] LABCLIA [id number] [place] [id number] [place] [address] OF [facility] Amylase Fld-cCncon 5 Amylase (Body fld) [Catalytic activity/Vol] 17 U/L Normal See Comment [facility] Comment on above: Order Comment: Speci men Type: FLUID SPECIMENOrdering Facility: [facility] Address: [address] [place] [address] Result Comment: PLEU RAL FLUIDS:Amylase measurement in [...] document C49-A. PAULETTE Diaz: Clinical Laboratory Standards [place]; 2007.3. Kelby CONCEPCION, John BRAR, Star DELUNA. Use of cyst fluid CEA, CA19-9, and amylase for evaluation of pancreatic lesions. Clinical Biochemistry. 2009;42:9173-1948.This test was developed, and its performance characteristics determined by the [facility] Department of Pathology and Laboratory Medicine. It has not been cleared or approved by the FDA. The [facility] Department of Pathology and Laboratory Medicine is regulated under CLIA as qualified to perform high-complexity testing. This test is used for clinical purposes. It should not be regarded as investigational or for research. Performed By: #### 1 795-4, 2881-1, 1747-5 ####[facility] LABCLIA [id number] [place] [id number] [place] BODY FLUID CELL COUNTon - Clarity (Unsp spec) Clear Normal Clear [facility] Comment on above: Order Comment: Speci men Type: FLUID SPECIMENOrdering Facility: [facility] Address: [address] [place] [address] Performed By: #### C CBF, [id number] ####[facility] LABCLIA [id number] [place] [address] [place] Color (Body fld) Yellow Normal Yellow [facility] Comment on above: Order Comment: Speci men Type: FLUID SPECIMENOrdering Facility: [facility] Address: [address] [place] [address] Performed By: #### C CBF, [id number] ####[facility] LABCLIA [id number] [place] [address] [place] RBC Manual cnt (Body fld) [#/Vol] 3000 /uL High <2000 [facility] Comment on above: Order Comment: Speci men Type: FLUID SPECIMENOrdering Facility: [facility] Address: [address] [place] [address] Performed By: #### C CBF, [id number] ####[facility] LABCLIA [id number] [address] [place] Specimen source Nom (Body fld) Ascites Fluid Normal [facility] Comment on above: Order Comment: Speci men Type: FLUID SPECIMENOrdering Facility: [facility] Address: [address] [place], [place] [address] Performed By: #### C CBF, [id number] ####[facility] LABCLIA [id number] [address] [address] [place] WBC Manual cnt (Body fld) [#/Vol] 58 /uL Normal <1000 [facility] Comment on above: Order Comment: Speci men Type: FLUID SPECIMENOrdering Facility: [facility] Address: [address] [place] [address] Performed By: #### C CBF, [id number] ####[facility] LABCLIA [id number] [address] [place] [address] [place] Bacteria Fld Culton 11-17-19 25 Bacteria identified Cx Nom (Body fld) CULTURE, BODY FLD: No growth GRAM STAIN: No organisms seen Few Polymorphonuclear leukocytes Gram stain performed on cytospun specimen. Gram stain from primary specimen Normal [facility] Comment on above: Performed By: #### 6 35-3, 611-4 ####[facility] LABCLIA [id number] [address] [place] [address] [place] Bacteria Spec Anaerobe Culto n 11-16-2024 Bacteria identified Anaer cx Nom (Unsp spec) Negative Normal [facility] Comment on above: Performed By: #### 6 35-3, 611-4 ####[facility] LABCLIA [id number] [address] [place] [address] [place] Basic metabolic 2000 panelon 11-16-2024 Anion gap [Moles/Vol] 10 mmol/L Normal 8-15 [facility] Comment on above: Order Comment: Speci men Type: BLOOD SPECIMENOrdering Facility: [facility] Address: [address] [place] [id number] Performed By: #### 2 4321-2, 56011-1, 2777-1 ####[facility] LABCLIA [id number] [place] [id number] [place] Calcium [Mass/Vol] 8.4 mg/dL Low 8.5-10.2 [facility] Comment on above: Order Comment: Speci men Type: BLOOD SPECIMENOrdering Facility: [facility] Address: [address] [place] [address] Performed By: #### 2 4321-2, 33776-2, 277-1 ####[facility] LABCLIA [id number] [place] [id number] [place] Chloride [Moles/Vol] 102 mmol/L Normal 98-107 [facility] Comment on above: Order Comment: Speci men Type: BLOOD SPECIMENOrdering Facility: [facility] Address: [address] [place] [address] Performed By: #### 2 4321-2, 74486-5, 277-1 ####[facility] LABCLIA [id number] [place] [address] [place] CO2 [Moles/Vol] 18 mmol/L Low 22-30 [facility] Comment on above: Order Comment: Speci men Type: BLOOD SPECIMENOrdering Facility: [facility] Address: [address] [place] [address] Performed By: #### 2 4321-2, 08615-0, 2776- ####[facility] LABCLIA [id number] [place] [address] [place] Creatinine [Mass/Vol] 0.73 mg/dL Normal 0.73-1.22 [facility] Comment on above: Order Comment: Speci men Type: BLOOD SPECIMENOrdering Facility: [facility] Address: [address] [place] [address] Performed By: #### 2 4321-2, 90914-5, 277-1 ####[facility] LABCLIA [id number] [facility] [address] [address] [place] Creatinine and Glomerular filtration rate.predicted panel (S/P/Bld) 105 mL/min/1.73m??? Normal >=60 [facility] Comment on above: Order Comment: Ezekiel ramirez Type: BLOOD SPECIMENOrdering Facility: [facility] Address: [address] [place] [address] Result Comment: Patric mated Glomerular Filtration Rate [...] actual GFR. Performed By: #### 2 4321-2, 77440-6, 2777-1 ####[facility] LABIA [id number] [place] [id number] [place] Glucose [Mass/Vol] 181 mg/dL High 74-99 [facility] Comment on above: Order Comment: Ezekiel ramirez Type: BLOOD SPECIMENOrdering Facility: [facility] Address: [address] [place] [address] Result Comment: The [place] Diabetes [employer] (ADA) provides guidance for cutoff [...] Standards of Medical Care in Diabetes 2016, [place] [employer]. Diabetes Care. 2016.39(Suppl 1). Performed By: #### 2 4321-2, 72797-0, 2777-1 ####[facility] LABIA [id number] [address] [address] [place] Potassium [Moles/Vol] 3.6 mmol/L Low 3.7-5.1 [facility] Comment on above: Order Comment: Speci men Type: BLOOD SPECIMENOrdering Facility: [facility] Address: [address] [place] [address] Performed By: #### 2 4321-2, 50474-1, 2777- ####[facility] LABCLIA [id number] [place] [address] [place] Sodium [Moles/Vol] 130 mmol/L Low 136-144 [facility] Comment on above: Order Comment: Speci men Type: BLOOD SPECIMENOrdering Facility: [facility] Address: [address] [place] [address] Performed By: #### 2 4321-2, 93837-4, 2777 ####[facility] LABCLIA [id number] [place] [address] [place] Urea nitrogen [Mass/Vol] 9 mg/dL Normal 9-24 [facility] Comment on above: Order Comment: Speci men Type: BLOOD SPECIMENOrdering Facility: [facility] Address: [address] [place] [address] Performed By: #### 2 4321-2, 85412-6, 2777 ####[facility] LABIA [id number] [place] [address] [place] CBC W Auto Differential pane l (Bld)on 11-16-2024 Basophils (Bld) [#/Vol] 0.05 10*3/uL Normal <0.11 [facility] Comment on above: Order Comment: Speci men Type: BLOOD SPECIMENOrdering Facility: [facility] Address: [address] [place] [address] Performed By: #### 5 7021-8 ####[facility] LABCLIA [id number] [place] [address] [place] Basophils/100 WBC (Bld) 0.8 % Normal [facility] Comment on above: Order Comment: Speci men Type: BLOOD SPECIMENOrdering Facility: [facility] Address: [address] [place] [address] Performed By: #### 5 7021-8 ####[facility] LABCLIA [id number] [address], [place] [address] [place] Differential cell count method Nom (Bld) Auto Normal [facility] Comment on above: Order Comment: Speci men Type: BLOOD SPECIMENOrdering Facility: [facility] Address: [address] [place] [address] Performed By: #### 5 7021-8 ####[facility] LABCLIA [id number] [address], [place] [address] [place] Eosinophils (Bld) [#/Vol] 0.22 10*3/uL Normal <0.46 [facility] Comment on above: Order Comment: Speci men Type: BLOOD SPECIMENOrdering Facility: [facility] Address: [address] [place] [address] Performed By: #### 5 7021-8 ####[facility] LABCLIA [id number] [address], [place] [address] [place] Eosinophils/100 WBC (Bld) 3.6 % Normal [facility] Comment on above: Order Comment: Speci men Type: BLOOD SPECIMENOrdering Facility: [facility] Address: [address] [place] [address] Performed By: #### 5 7021-8 ####[facility] LABCLIA [id number] [address], [facility] [place] Erythrocyte distribution width (RBC) [Ratio] 16.7 % High 11.5-15.0 [facility] Comment on above: Order Comment: Speci men Type: BLOOD SPECIMENOrdering Facility: [facility] Address: [address] [place] [address] Performed By: #### 5 7021-8 ####[facility] LABCLIA [id number] [place] [id number] [place] Hematocrit (Bld) [Volume fraction] 24.0 % Low 39.0-51.0 [facility] Comment on above: Order Comment: Speci men Type: BLOOD SPECIMENOrdering Facility: [facility] Address: [address] [place] [address] Performed By: #### 5 7021-8 ####[facility] LABCLIA [id number] [place] [address] [place] Hemoglobin (Bld) [Mass/Vol] 8.3 g/dL Low 13.0-17.0 [facility] Comment on above: Order Comment: Speci men Type: BLOOD SPECIMENOrdering Facility: [facility] Address: [address] [place] [address] Performed By: #### 5 7021-8 ####[facility] LABCLIA [id number] [place] [address] [place] Immature granulocytes (Bld) [#/Vol] 0.05 10*3/uL Normal <0.10 [facility] Comment on above: Order Comment: Speci men Type: BLOOD SPECIMENOrdering Facility: [facility] Address: [address] [place] [address] Performed By: #### 5 7021-8 ####[facility] LABIA [id number] [place] [address] [place] Immature granulocytes/100 WBC (Bld) 0.8 % Normal [facility] Comment on above: Order Comment: Speci men Type: BLOOD SPECIMENOrdering Facility: [facility] Address: [address] [place] [address] Performed By: #### 5 7021-8 ####[facility] LABCLIA [id number] [place] [address] [place] Lymphocytes (Bld) [#/Vol] 0.75 10*3/uL Low 1.00-4.00 [facility] Comment on above: Order Comment: Speci men Type: BLOOD SPECIMENOrdering Facility: [facility] Address: [address] [place] [address] Performed By: #### 5 7021-8 ####[facility] LABCLIA [id number] [place] [address] [place] Lymphocytes/100 WBC (Bld) 12.4 % Normal [facility] Comment on above: Order Comment: Speci men Type: BLOOD SPECIMENOrdering Facility: [facility] Address: [address] [place] [address] Performed By: #### 5 7021-8 ####[facility] LABCLIA [id number] [place] [address] [place] MCH (RBC) [Entitic mass] 31.9 pg Normal 26.0-34.0 [facility] Comment on above: Order Comment: Speci men Type: BLOOD SPECIMENOrdering Facility: [facility] Address: [address] [place] [address] Performed By: #### 5 7021-8 ####[facility] LABIA [id number] [place] [address] [place] MCHC (RBC) [Mass/Vol] 34.6 g/dL Normal 30.5-36.0 [facility] Comment on above: Order Comment: Speci men Type: BLOOD SPECIMENOrdering Facility: [facility] Address: [address] [place] [address] Performed By: #### 5 7021-8 ####[facility] LABCLIA [id number] [place] [id number] [place] MCV (RBC) [Entitic vol] 92.3 fL Normal 80.0-100.0 [facility] Comment on above: Order Comment: Speci men Type: BLOOD SPECIMENOrdering Facility: [facility] Address: [address] [place] [address] Performed By: #### 5 7021-8 ####[facility] LABCLIA [id number] [facility] [address] [place] [address] [place] Monocytes (Bld) [#/Vol] 0.68 10*3/uL Normal <0.87 [facility] Comment on above: Order Comment: Speci men Type: BLOOD SPECIMENOrdering Facility: [facility] Address: [address] [place] [address] Performed By: #### 5 7021-8 ####[facility] LABCLIA [id number] [facility] [address] [place] [address] [place] Monocytes/100 WBC (Bld) 11.3 % Normal [facility] Comment on above: Order Comment: Speci men Type: BLOOD SPECIMENOrdering Facility: [facility] Address: [address] [place] [address] Performed By: #### 5 7021-8 ####[facility] LABCLIA [id number] [address], [place] [address] [place] Neutrophils (Bld) [#/Vol] 4.28 10*3/uL Normal 1.45-7.50 [facility] Comment on above: Order Comment: Speci men Type: BLOOD SPECIMENOrdering Facility: [facility] Address: [address] [place] [address] Performed By: #### 5 7021-8 ####[facility] LABCLIA [id number] [facility] [place] [id number] [place] Neutrophils/100 WBC (Bld) 71.1 % Normal [facility] Comment on above: Order Comment: Speci men Type: BLOOD SPECIMENOrdering Facility: [facility] Address: [address] [place] [address] Performed By: #### 5 7021-8 ####[facility] LABCLIA [id number] [facility] [address] [place] [address] [place] Nucleated RBC (Bld) [#/Vol] 10*3/uL Normal <0.01 [facility] Comment on above: Order Comment: Speci men Type: BLOOD SPECIMENOrdering Facility: [facility] Address: [address] [place] [address] Performed By: #### 5 7021-8 ####[facility] LABIA [id number] [place] [address] [place] Nucleated RBC/100 WBC (Bld) [Ratio] 0.0 /100 WBC Normal [facility] Comment on above: Order Comment: Speci men Type: BLOOD SPECIMENOrdering Facility: [facility] Address: [address] [place] [address] Performed By: #### 5 7021-8 ####[facility] LABIA [id number] [place] [address] [place] Platelet mean volume (Bld) [Entitic vol] 11.8 fL Normal 9.0-12.7 [facility] Comment on above: Order Comment: Speci men Type: BLOOD SPECIMENOrdering Facility: [facility] Address: [address] [place] [address] Performed By: #### 5 7021-8 ####[facility] [id number] [place] [address] [place] Platelets (Bld) [#/Vol] 59 10*3/uL Low 150-400 [facility] Comment on above: Order Comment: Speci men Type: BLOOD SPECIMENOrdering Facility: [facility] Address: [address] [place] [address] Result Comment: No c lot detected.Results checked and verified. Performed By: #### 5 7021-8 ####[facility] LABIA [id number] [place] [address] [place] RBC (Bld) [#/Vol] 2.60 10*6/uL Low 4.20-6.00 [facility] Comment on above: Order Comment: Speci men Type: BLOOD SPECIMENOrdering Facility: [facility] Address: [address] [place] [address] Performed By: #### 5 7021-8 ####[facility] LABCLIA [id number] [place] [address] [place] WBC (Bld) [#/Vol] 6.03 10*3/uL Normal 3.70-11.00 [facility] Comment on above: Order Comment: Speci men Type: BLOOD SPECIMENOrdering Facility: [facility] Address: [address] [place] [address] Performed By: #### 5 7021-8 ####[facility] LABCLIA [id number] [place] [address] [place] CONSULT PROGon 11-16-2024 CONSULT PROG Normal [facility] CYTOLOGY NON-GYNon AP DISCLAIMER Normal [facility] Comment on above: Order Comment: Speci men Type: FLUID SPECIMENOrdering Facility: [facility] Address: [address] [place] [address] Result Comment: Shellie pugh Developed Test (LDT) Disclaimer:Performance characteristics of immunohistochemical, immunofluorescent, and chromogenic in-situ hybridization tests have been determined by the performing laboratory within [facility]'s [facility] Pathology and Laboratory Medicine Department ([facility], [facility], [facility], [facility], [facility], [facility], or [facility]) in a manner consistent with CLIA requirements. One or more of these tests may not have been cleared or approved by the FDA. [facility] is regulated under CLIA as qualified to perform high-complexity testing. These tests are used for clinical purposes. These should not be regarded as investigational or for research. Positive and negative controls stain appropriately. Performed By: #### C YTONON ####[facility] LABCLIA [id number] [place] [id number] [place] CASE REPORT Normal [facility] Comment on above: Order Comment: Speci men Type: FLUID SPECIMENOrdering Facility: [facility] Address: [address] [place] [address] Result Comment: [facility] Cytology Report Case: [id number] Provider: Young Cruz MD Collected: 11/16/2024 08:42 AMOrdering Location: [place] [address] Received: 11/16/2024 06:20 PMPathologist: Stefani Mcneal MDSpecimen: Peritoneal Fluid. Performed By: #### C YTONON ####[facility] LABCLIA [id number] [address] [place] CLINICAL HISTORY Cirrhosis with ascites Normal [facility] Comment on above: Order Comment: Speci men Type: FLUID SPECIMENOrdering Facility: [facility] Address: [address] [place] [address] Performed By: #### C YTONON ####[facility] LABCLIA [id number] [address] OF [facility] FINAL DIAGNOSIS Normal [facility] Comment on above: Order Comment: Speci men Type: FLUID SPECIMENOrdering Facility: [facility] Address: [address] [place] [address] Result Comment: A - Peritoneal Fluid Negative for malignant cells. Chronic inflammation.The following cell blocks were associated with this case:A1 Cell Block, Alcohol Fixed at 1223 EDT Performed By: #### C YTONON ####[facility] LABCLIA [id number] [address] OF [facility] FINAL PERFORMING LAB Normal [facility] Comment on above: Order Comment: Speci men Type: FLUID SPECIMENOrdering Facility: [facility] Address: [address] [place] [address] Result Comment: Tech nical component, shearing machine tender screening performed at: [facility], [address] [place] [address] CLIA: [id number] interpretation performed at: [facility], [address] [place] [address] [place] [address] CLIA# [id number] Director: Titi Voss MD Performed By: #### C YTONON ####[facility] LABCLIA [id number] [place] [address] [place] GROSS DESCRIPTION Normal [facility] Comment on above: Order Comment: Speci men Type: FLUID SPECIMENOrdering Facility: [facility] Address: [address] [place] [address] Result Comment: A. P eritoneal Fluid.1450 cc opaque red fluid . ThinPrep and Cell Block prepared. Performed By: #### C YTONON ####[facility] LABIA [id number] [place] [address] [place] ECG COMPLETEon 11-16-2024 ECG COMPLETE Normal [facility] Fibrinogen PPP-mCncon 2024 Fibrinogen Coag (PPP) [Mass/Vol] 127 mg/dL Low 200-400 [facility] Comment on above: Order Comment: Speci men Type: BLOOD SPECIMENOrdering Facility: [facility] Address: [address] [place] [address] Performed By: #### 3 255-7, 87394-2 ####[facility] LABIA [id number] [place] [address] [place] Hepatic function 2000 panelo n 11-16-2024 Albumin [Mass/Vol] 2.8 g/dL Low 3.9-4.9 [facility] Comment on above: Order Comment: Speci men Type: BLOOD SPECIMENOrdering Facility: [facility] Address: [address] [place] [address] Performed By: #### 2 4321-2, 59797-0, 2777-1 ####[facility] LABCLIA [id number] [place] [address] [place] ALP [Catalytic activity/Vol] 295 U/L High 38-113 [facility] Comment on above: Order Comment: Speci men Type: BLOOD SPECIMENOrdering Facility: [facility] Address: [address] [place] [address] Performed By: #### 2 4321-2, 22106-0, 2776-08 ####[facility] LABCLIA [id number] [place] [id number] [place] ALT [Catalytic activity/Vol] 38 U/L Normal 10-54 [facility] Comment on above: Order Comment: Speci men Type: BLOOD SPECIMENOrdering Facility: [facility] Address: [address] [place] [address] Performed By: #### 2 4321-2, 79724-3, 2776-08 ####[facility] LABCLIA [id number] [place] [address] [place] AST [Catalytic activity/Vol] 88 U/L High 14-40 [facility] Comment on above: Order Comment: Speci men Type: BLOOD SPECIMENOrdering Facility: [facility] Address: [address] [place] [address] Performed By: #### 2 4321-2, 12359-1, 2776-08 ####[facility] LABCLIA [id number] [place] [address] [place] Bilirubin [Mass/Vol] 1.8 mg/dL High 0.2-1.3 [facility] Comment on above: Order Comment: Speci men Type: BLOOD SPECIMENOrdering Facility: [facility] Address: [address] [place] [address] Performed By: #### 2 4321-2, 57617-7, 2776-08 ####[facility] LABCLIA [id number] [place] [address] [place] Bilirubin.conjugated [Mass/Vol] 0.9 mg/dL High <0.3 [facility] Comment on above: Order Comment: Speci men Type: BLOOD SPECIMENOrdering Facility: [facility] Address: [address] [place] [address] Performed By: #### 2 4321-2, 00404-9, 2777-1 ####[facility] LABCLIA [id number] [address] [place] [address] [place] Protein [Mass/Vol] 5.5 g/dL Low 6.3-8.0 [facility] Comment on above: Order Comment: Speci men Type: BLOOD SPECIMENOrdering Facility: [facility] Address: [address] [place] [address] Performed By: #### 2 4321-2, 79429-5, 2777-1 ####[facility] LABCLIA [id number] [place] [address] [place] MANUAL DIFFERENTIAL, BODY FL UIDon 11-16-2024 DIF TTL, BODY FLUID 100 cells counted Normal [facility] Comment on above: Order Comment: Speci men Type: FLUID SPECIMENOrdering Facility: [facility] Address: [address] [place] [address] Performed By: #### C CBF, [id number] ####[facility] LABCLIA [id number] [address], [facility] [place] LYMPH%, BF 47 % High 18-36 [facility] Comment on above: Order Comment: Speci men Type: FLUID SPECIMENOrdering Facility: [facility] Address: [address] [place] [address] Performed By: #### C CBF, [id number] ####[facility] LABCLIA [id number] [address] [place] [address] [place] MACRO%, BF 6 % Low 64-80 [facility] Comment on above: Order Comment: Speci men Type: FLUID SPECIMENOrdering Facility: [facility] Address: [address] [place] [address] Performed By: #### C CBF, [id number] ####[facility] LABCLIA [id number] [facility] [place] [address] [place] MESO %, BF 25 % High 0-2 [facility] Comment on above: Order Comment: Speci men Type: FLUID SPECIMENOrdering Facility: [facility] Address: [address] [place] [address] Performed By: #### C CBF, [id number] ####[facility] LABCLIA [id number] [address] [place] [address] [place] MONO% BF 8 % Normal [facility] Comment on above: Order Comment: Speci men Type: FLUID SPECIMENOrdering Facility: [facility] Address: [address] [place] [address] Performed By: #### C CBF, [id number] ####[facility] LABCLIA [id number] [address] [place] [address] [place] NEUT%, BF 14 % High 0-1 [facility] Comment on above: Order Comment: Speci men Type: FLUID SPECIMENOrdering Facility: [facility] Address: [address] [place] [address] Performed By: #### C CBF, [id number] ####[facility] LABCLIA [id number] [address] [place] [address] [place] NURSING PROGon 11-16-2024 NURSING PROG Normal [facility] NURSING PROG Normal [facility] PT panel Coag (PPP)on 2024 INR Coag (PPP) [Relative time] 2.1 {INR} High 0.9-1.3 [facility] Comment on above: Order Comment: Speci men Type: BLOOD SPECIMENOrdering Facility: [facility] Address: [address] [place] [address] Result Comment: Sarah min K Antagonist (VKA) Therapeutic Range: INR 2 to 3 (Target INR of 2.5)Note: For patients treated with VKA drugs, such as warfarin, the [employer] 2012 Guideline recommends [...] al. Chest 2012, 141:7S-47SHector RA, et al. [facility] 2017, 70: 252-289 Performed By: #### 3 4528-0 ####[facility] [id number] [place] [address] [place] PT Coag (PPP) [Time] 21.5 s High 9.7-13.0 [facility] Comment on above: Order Comment: Ezekiel ramirez Type: BLOOD SPECIMENOrdering Facility: [facility] Address: [address] [place] [address] Performed By: #### 3 4528-0 ####[facility] [id number] [address] [place] INR Coag (PPP) [Relative time] 2.0 {INR} High 0.9-1.3 [facility] Comment on above: Order Comment: Ezekiel ramirez Type: BLOOD SPECIMENOrdering Facility: [facility] Address: [address] [place] [address] Result Comment: Sarah min K Antagonist (VKA) Therapeutic Range: INR 2 to 3 (Target INR of 2.5)Note: For patients treated with VKA drugs, such as warfarin, the [employer] 2012 Guideline recommends [...] al. Chest 2012, 141:7S-47SNishimnicolle RA, et al. [facility] 2017, 70: 252-289 Performed By: #### 3 255-7, 94240-2 ####[facility] [id number] [place] [address] [place] PT Coag (PPP) [Time] 20.3 s High 9.7-13.0 [facility] Comment on above: Order Comment: Speci men Type: BLOOD SPECIMENOrdering Facility: [facility] Address: [address] [place] [address] Performed By: #### 3 255-7, 30605-3 ####[facility] [id number] [place] [address] [place] Phosphate SerPl-mCncon 11-16 Phosphate [Mass/Vol] 2.3 mg/dL Low 2.7-4.8 [facility] Comment on above: Order Comment: Ezekiel ramirez Type: BLOOD SPECIMENOrdering Facility: [facility] Address: [address] [place] [address] Performed By: #### 2 4321-2, 32816-8, 2777-1 ####[facility] [id number] [place] [address] [place] Prot Fld-mCncon 11-16-2024 Protein (Body fld) [Mass/Vol] 0.5 g/dL Normal See Comment [facility] Comment on above: Order Comment: Ezekiel ramirez Type: FLUID SPECIMENOrdering Facility: [facility] Address: [address] [place] [address] Result Comment: Sero us fluids: Effusions are [...] document C49A. PAULETTE Diaz: Clinical Laboratory Standards [place]: 2007. Performed By: #### 1 795-4, 2881-1, 1747-5 ####[facility] LABCLIA [id number] [address] OF [facility] THERAPY NTon 11-16-2024 THERAPY NT Normal [facility] THERAPY NT Normal [facility] BLOOD TB SCREENon 11-15-2024 M. tuberculosis tuberculin stim IFN-g Ql (Bld) Indeterminate Normal [facility] Comment on above: Order Comment: Speci men Type: BLOOD SPECIMENOrdering Facility: [facility] Address: [address] [place] [address] Performed By: #### I NFTBP ####[facility] LABIA [id number] [address] [place] MITOGEN MINUS NIL 0.25 IU/mL Low >=0.50 [facility] Comment on above: Order Comment: Speci men Type: BLOOD SPECIMENOrdering Facility: [facility] Address: [address] [place] [address] Performed By: #### I NFTBP ####[facility] LABIA [id number] [address] [place] TB GAMMA INTERPRETATION Normal [facility] Comment on above: Order Comment: Speci men Type: BLOOD SPECIMENOrdering Facility: [facility] Address: [address] [place] [address] Performed By: #### I NFTBP ####[facility] LABCLIA [id number] [place] [address] [place] TB NIL 0.01 IU/mL Normal <=8.00 [facility] Comment on above: Order Comment: Speci men Type: BLOOD SPECIMENOrdering Facility: [facility] Address: [address] [place] [address] Performed By: #### I NFTBP ####[facility] LABCLIA [id number] [place] [address] [place] TB1 AG MINUS NIL 0.00 IU/mL Normal <0.35 [facility] Comment on above: Order Comment: Speci men Type: BLOOD SPECIMENOrdering Facility: [facility] Address: [address] [place] [address] Performed By: #### I NFTBP ####[facility] LABCLIA [id number] [place] [address] [place] TB2 AG MINUS NIL 0.01 IU/mL Normal <0.35 [facility] Comment on above: Order Comment: Speci men Type: BLOOD SPECIMENOrdering Facility: [facility] Address: [address] [place] [address] Performed By: #### I NFTBP ####[facility] LABIA [id number] [place] [address] [place] CASE MANAGEMon 11-15-2024 CASE MANAGEM Normal [facility] CASE MANAGEM Normal [facility] CBC W Auto Differential pane l (Bld)on 11-15-2024 Basophils (Bld) [#/Vol] 0.05 10*3/uL Normal <0.11 [facility] Comment on above: Order Comment: Speci men Type: BLOOD SPECIMENOrdering Facility: [facility] Address: [address] [place] [address] Performed By: #### 5 7021-8 ####[facility] LABCLIA [id number] [place] [address] [place] Basophils/100 WBC (Bld) 0.8 % Normal [facility] Comment on above: Order Comment: Speci men Type: BLOOD SPECIMENOrdering Facility: [facility] Address: [address] [place] [address] Performed By: #### 5 7021-8 ####[facility] LABCLIA [id number] [place] [address] [place] Differential cell count method Nom (Bld) Auto Normal [facility] Comment on above: Order Comment: Speci men Type: BLOOD SPECIMENOrdering Facility: [facility] Address: [address] [place] [address] Performed By: #### 5 7021-8 ####[facility] LABCLIA [id number] [place] [address] [place] Eosinophils (Bld) [#/Vol] 0.28 10*3/uL Normal <0.46 [facility] Comment on above: Order Comment: Speci men Type: BLOOD SPECIMENOrdering Facility: [facility] Address: [address] [place] [address] Performed By: #### 5 7021-8 ####[facility] LABCLIA [id number] [address] [place] Eosinophils/100 WBC (Bld) 4.6 % Normal [facility] Comment on above: Order Comment: Speci men Type: BLOOD SPECIMENOrdering Facility: [facility] Address: [address] [place] [address] Performed By: #### 5 7021-8 ####[facility] LABCLIA [id number] [place] [address] [place] Erythrocyte distribution width (RBC) [Ratio] 16.8 % High 11.5-15.0 [facility] Comment on above: Order Comment: Speci men Type: BLOOD SPECIMENOrdering Facility: [facility] Address: [address] [place] [address] Performed By: #### 5 7021-8 ####[facility] LABCLIA [id number] [address], [place] [address] [place] Hematocrit (Bld) [Volume fraction] 22.9 % Low 39.0-51.0 [facility] Comment on above: Order Comment: Speci men Type: BLOOD SPECIMENOrdering Facility: [facility] Address: [address] [place] [address] Performed By: #### 5 7021-8 ####[facility] LABIA [id number] [address], [place] [address] [place] Hemoglobin (Bld) [Mass/Vol] 7.6 g/dL Low 13.0-17.0 [facility] Comment on above: Order Comment: Speci men Type: BLOOD SPECIMENOrdering Facility: [facility] Address: [address] [place] [address] Performed By: #### 5 7021-8 ####[facility] LABIA [id number] [address], [place] [address] [place] Immature granulocytes (Bld) [#/Vol] 0.03 10*3/uL Normal <0.10 [facility] Comment on above: Order Comment: Speci men Type: BLOOD SPECIMENOrdering Facility: [facility] Address: [address] [place] [address] Performed By: #### 5 7021-8 ####[facility] LABCLIA [id number] [address], [facility] [place] Immature granulocytes/100 WBC (Bld) 0.5 % Normal [facility] Comment on above: Order Comment: Speci men Type: BLOOD SPECIMENOrdering Facility: [facility] Address: [address] [place] [address] Performed By: #### 5 7021-8 ####[facility] LABIA [id number] [place] [id number] [place] Lymphocytes (Bld) [#/Vol] 0.70 10*3/uL Low 1.00-4.00 [facility] Comment on above: Order Comment: Speci men Type: BLOOD SPECIMENOrdering Facility: [facility] Address: [address] [place] [address] Performed By: #### 5 7021-8 ####[facility] LABCLIA [id number] [place] [address] [place] Lymphocytes/100 WBC (Bld) 11.5 % Normal [facility] Comment on above: Order Comment: Speci men Type: BLOOD SPECIMENOrdering Facility: [facility] Address: [address] [place] [address] Performed By: #### 5 7021-8 ####[facility] LABIA [id number] [place] [address] [place] MCH (RBC) [Entitic mass] 30.6 pg Normal 26.0-34.0 [facility] Comment on above: Order Comment: Speci men Type: BLOOD SPECIMENOrdering Facility: [facility] Address: [address] [place] [address] Performed By: #### 5 7021-8 ####[facility] LABIA [id number] [place] [address] [place] MCHC (RBC) [Mass/Vol] 33.2 g/dL Normal 30.5-36.0 [facility] Comment on above: Order Comment: Speci men Type: BLOOD SPECIMENOrdering Facility: [facility] Address: [address] [place] [address] Performed By: #### 5 7021-8 ####[facility] LABCLIA [id number] [place] [address] [place] MCV (RBC) [Entitic vol] 92.3 fL Normal 80.0-100.0 [facility] Comment on above: Order Comment: Speci men Type: BLOOD SPECIMENOrdering Facility: [facility] Address: [address] [place] [address] Performed By: #### 5 7021-8 ####[facility] LABCLIA [id number] [place] [address] [place] Monocytes (Bld) [#/Vol] 0.73 10*3/uL Normal <0.87 [facility] Comment on above: Order Comment: Speci men Type: BLOOD SPECIMENOrdering Facility: [facility] Address: [address] [place] [address] Performed By: #### 5 7021-8 ####[facility] LABCLIA [id number] [place] [address] [place] Monocytes/100 WBC (Bld) 12.0 % Normal [facility] Comment on above: Order Comment: Speci men Type: BLOOD SPECIMENOrdering Facility: [facility] Address: [address] [place] [address] Performed By: #### 5 7021-8 ####[facility] LABCLIA [id number] [place] [address] [place] Neutrophils (Bld) [#/Vol] 4.30 10*3/uL Normal 1.45-7.50 [facility] Comment on above: Order Comment: Speci men Type: BLOOD SPECIMENOrdering Facility: [facility] Address: [address] [place] [address] Performed By: #### 5 7021-8 ####[facility] LABCLIA [id number] [place] [id number] [place] Neutrophils/100 WBC (Bld) 70.6 % Normal [facility] Comment on above: Order Comment: Speci men Type: BLOOD SPECIMENOrdering Facility: [facility] Address: [address] [place] [address] Performed By: #### 5 7021-8 ####[facility] LABCLIA [id number] [address] [address] [place] Nucleated RBC (Bld) [#/Vol] 10*3/uL Normal <0.01 [facility] Comment on above: Order Comment: Speci men Type: BLOOD SPECIMENOrdering Facility: [facility] Address: [address] [place] [address] Performed By: #### 5 7021-8 ####[facility] LABCLIA [id number] [place] [address] [place] Nucleated RBC/100 WBC (Bld) [Ratio] 0.0 /100 WBC Normal [facility] Comment on above: Order Comment: Speci men Type: BLOOD SPECIMENOrdering Facility: [facility] Address: [address] [place] [address] Performed By: #### 5 7021-8 ####[facility] LABIA [id number] [place] [address] [place] Platelet mean volume (Bld) [Entitic vol] 12.2 fL Normal 9.0-12.7 [facility] Comment on above: Order Comment: Speci men Type: BLOOD SPECIMENOrdering Facility: [facility] Address: [address] [place] [address] Performed By: #### 5 7021-8 ####[facility] LABIA [id number] [place] [address] [place] Platelets (Bld) [#/Vol] 53 10*3/uL Low 150-400 [facility] Comment on above: Order Comment: Speci men Type: BLOOD SPECIMENOrdering Facility: [facility] Address: [address] [place] [address] Performed By: #### 5 7021-8 ####[facility] LABCLIA [id number] [place] [id number] [place] RBC (Bld) [#/Vol] 2.48 10*6/uL Low 4.20-6.00 [facility] Comment on above: Order Comment: Speci men Type: BLOOD SPECIMENOrdering Facility: [facility] Address: [address] [place] [address] Performed By: #### 5 7021-8 ####[facility] LABCLIA [id number] [place] [address] [place] WBC (Bld) [#/Vol] 6.09 10*3/uL Normal 3.70-11.00 [facility] Comment on above: Order Comment: Speci men Type: BLOOD SPECIMENOrdering Facility: [facility] Address: [address] [place] [address] Performed By: #### 5 7021-8 ####[facility] LABCLIA [id number] [place] [address] [place] CNOVon 11-15-2024 CNOV Normal [facility] CONSULTon 11-15-2024 CONSULT Normal [facility] CONSULT PROGon 11-15-2024 CONSULT PROG Normal [facility] Fibrinogen PPP-mCncon 2024 Fibrinogen Coag (PPP) [Mass/Vol] 123 mg/dL Low 200-400 [facility] Comment on above: Order Comment: Speci men Type: BLOOD SPECIMENOrdering Facility: [facility] Address: [address] [place] [address] Performed By: #### 3 255-7, 47757-3 ####[facility] LABCLIA [id number] [place] [address] [place] Hepatic function 2000 panelo n 11-15-2024 Albumin [Mass/Vol] 2.8 g/dL Low 3.9-4.9 [facility] Comment on above: Order Comment: Speci men Type: BLOOD SPECIMENOrdering Facility: [facility] Address: [address] [place] [address] Performed By: #### 2 4325-3, 81284-8 ####[facility] LABCLIA [id number] [address], [facility] [place] ALP [Catalytic activity/Vol] 277 U/L High 38-113 [facility] Comment on above: Order Comment: Speci men Type: BLOOD SPECIMENOrdering Facility: [facility] Address: [address] [place] [address] Performed By: #### 2 4325-3, 81672-6 ####[facility] LABCLIA [id number] [address], [place] [address] [place] ALT [Catalytic activity/Vol] 36 U/L Normal 10-54 [facility] Comment on above: Order Comment: Speci men Type: BLOOD SPECIMENOrdering Facility: [facility] Address: [address] [place] [address] Performed By: #### 2 4325-3, 41077-7 ####[facility] LABCLIA [id number] [place] [address] [place] AST [Catalytic activity/Vol] 87 U/L High 14-40 [facility] Comment on above: Order Comment: Speci men Type: BLOOD SPECIMENOrdering Facility: [facility] Address: [address] [place] [address] Performed By: #### 2 4325-3, 00420-1 ####[facility] LABCLIA [id number] [place] [address] [place] Bilirubin [Mass/Vol] 1.6 mg/dL High 0.2-1.3 [facility] Comment on above: Order Comment: Speci men Type: BLOOD SPECIMENOrdering Facility: [facility] Address: [address] [place] [address] Performed By: #### 2 4325-3, 09612-9 ####[facility] LABCLIA [id number] [place] [id number] [place] Bilirubin.conjugated [Mass/Vol] 0.9 mg/dL High <0.3 [facility] Comment on above: Order Comment: Ezekiel ramirez Type: BLOOD SPECIMENOrdering Facility: [facility] Address: [address] [place] [address] Performed By: #### 2 4325-3, 76850-0 ####[facility] LABIA [id number] [place] [address] [place] Protein [Mass/Vol] 5.4 g/dL Low 6.3-8.0 [facility] Comment on above: Order Comment: Speci james Type: BLOOD SPECIMENOrdering Facility: [facility] Address: [address] [place] [address] Performed By: #### 2 4325-3, 09452-0 ####[facility] LABIA [id number] [place] [address] [place] PT panel Coag (PPP)on 2024 INR Coag (PPP) [Relative time] 1.8 {INR} High 0.9-1.3 [facility] Comment on above: Order Comment: Ezekiel ramirez Type: BLOOD SPECIMENOrdering Facility: [facility] Address: [address] [place] [address] Result Comment: Sarah min K Antagonist (VKA) Therapeutic Range: INR 2 to 3 (Target INR of 2.5)Note: For patients treated with VKA drugs, such as warfarin, the [place] [employer] 2012 Guideline recommends [...] al. Chest 2012, 141:7S-47SNishbethel RA, et al. [facility] 2017, 70: 252-289 Performed By: #### 3 255-7, 10905-5 ####[facility] LABCLIA [id number] [address] [address] [place] PT Coag (PPP) [Time] 18.9 s High 9.7-13.0 [facility] Comment on above: Order Comment: Speci men Type: BLOOD SPECIMENOrdering Facility: [facility] Address: [address] [place] [address] Performed By: #### 3 255-7, 01773-3 ####[facility] LABCLIA [id number] [place] [id number] [place] Renal function 2000 panelon 11-15-2024 Albumin [Mass/Vol] 2.9 g/dL Low 3.9-4.9 [facility] Comment on above: Order Comment: Speci men Type: BLOOD SPECIMENOrdering Facility: [facility] Address: [address] [place] [address] Performed By: #### 2 4325-3, 04264-5 ####[facility] LABCLIA [id number] [place] [id number] [place] Anion gap [Moles/Vol] 15 mmol/L Normal 8-15 [facility] Comment on above: Order Comment: Speci men Type: BLOOD SPECIMENOrdering Facility: [facility] Address: [address] [place] [address] Performed By: #### 2 4325-3, 17373-2 ####[facility] LABCLIA [id number] [address] [address] [place] Calcium [Mass/Vol] 8.4 mg/dL Low 8.5-10.2 [facility] Comment on above: Order Comment: Speci men Type: BLOOD SPECIMENOrdering Facility: [facility] Address: [address] [place] [address] Performed By: #### 2 4325-3, 88931-6 ####[facility] LABCLIA [id number] [place] [id number] [place] Chloride [Moles/Vol] 99 mmol/L Normal 98-107 [facility] Comment on above: Order Comment: Speci men Type: BLOOD SPECIMENOrdering Facility: [facility] Address: [address] [place] [address] Performed By: #### 2 4325-3, 92092-0 ####[facility] LABIA [id number] [place] [id number] [place] CO2 [Moles/Vol] 14 mmol/L Low 22-30 [facility] Comment on above: Order Comment: Speci men Type: BLOOD SPECIMENOrdering Facility: [facility] Address: [address] [place] [address] Performed By: #### 2 4325-3, 18920-0 ####[facility] LABIA [id number] [place] [address] [place] Creatinine [Mass/Vol] 0.80 mg/dL Normal 0.73-1.22 [facility] Comment on above: Order Comment: Speci men Type: BLOOD SPECIMENOrdering Facility: [facility] Address: [address] [place] [address] Performed By: #### 2 4325-3, 51280-4 ####[facility] LABIA [id number] [place] [address] [place] Creatinine and Glomerular filtration rate.predicted panel (S/P/Bld) 103 mL/min/1.73m??? Normal >=60 [facility] Comment on above: Order Comment: Speci men Type: BLOOD SPECIMENOrdering Facility: [facility] Address: [address] [place] [address] Result Comment: Patric mated Glomerular Filtration Rate [...] actual GFR. Performed By: #### 2 4325-3, 58264-7 ####[facility] LABCLIA [id number] [address] [address] [place] Glucose [Mass/Vol] 272 mg/dL High 74-99 [facility] Comment on above: Order Comment: Ezekiel ramirez Type: BLOOD SPECIMENOrdering Facility: [facility] Address: [address] [place] [address] Result Comment: The [place] [employer] (ADA) provides guidance for cutoff [...] Standards of Medical Care in Diabetes 2016, [place] [employer]. Diabetes Care. 2016.39(Suppl 1). Performed By: #### 2 4325-3, 40839-0 ####[facility] LABCLIA [id number] [facility] [place] [id number] [place] Phosphate [Mass/Vol] 2.2 mg/dL Low 2.7-4.8 [facility] Comment on above: Order Comment: Ezekiel ramirez Type: BLOOD SPECIMENOrdering Facility: [facility] Address: [address] [place] [address] Performed By: #### 2 4325-3, 59066-2 ####[facility] LABCLIA [id number] [address] [address] [place] Potassium [Moles/Vol] 3.8 mmol/L Normal 3.7-5.1 [facility] Comment on above: Order Comment: Speci men Type: BLOOD SPECIMENOrdering Facility: [facility] Address: [address] [place], [place] [address] Performed By: #### 2 4325-3, 92190-8 ####[facility] LABCLIA [id number] [address] [address] [place] Sodium [Moles/Vol] 128 mmol/L Low 136-144 [facility] Comment on above: Order Comment: Speci men Type: BLOOD SPECIMENOrdering Facility: [facility] Address: [address] [place], [place] [address] Performed By: #### 2 4325-3, 45406-8 ####[facility] LABCLIA [id number] [place] [address] [place] Urea nitrogen [Mass/Vol] 11 mg/dL Normal 9-24 [facility] Comment on above: Order Comment: Speci men Type: BLOOD SPECIMENOrdering Facility: [facility] Address: [address] [place] [address] Performed By: #### 2 4325-3, 08505-4 ####[facility] LABCLIA [id number] [place] [address] [place] SEPSIS LACTATEon 11-15-2024 Lactate [Moles/Vol] 3.2 mmol/L High <=2.0 [facility] Comment on above: Order Comment: Speci men Type: BLOOD SPECIMENOrdering Facility: [facility] Address: [address] [place], [place] [phone] Performed By: #### S LACT ####[facility] LABCLIA [id number] [place] [id number] [place] SOCIAL WORKon 11-15-2024 SOCIAL WORK Normal [facility] THERAPY NTon 11-15-2024 THERAPY NT Normal [facility] THERAPY NT Normal [facility] TYPE + SCREENon 11-15-2024 ABO O Normal [facility] Comment on above: Order Comment: Speci men Type: BLOOD SPECIMENOrdering Facility: [facility] Address: [address] [place] [address] Performed By: #### T SCR ####[facility] BLOOD BANKCLIA [id number] [address] [address] [place] Rh Nom (Bld) Positive Normal [facility] Comment on above: Order Comment: Speci men Type: BLOOD SPECIMENOrdering Facility: [facility] Address: [address] [place] [address] Performed By: #### T SCR ####[facility] BLOOD BANKCLIA [id number] [place] [address] [place] TYPE AND SCREEN EXPIRATION 11/18/2024 23:59 Normal [facility] Comment on above: Order Comment: Speci men Type: BLOOD SPECIMENOrdering Facility: [facility] Address: [address] [place] [address] Performed By: #### T SCR ####[facility] BLOOD BANKCLIA [id number] [address] [address] [place] US ASCITES SURVEYon 11-16-19 US ASCITES SURVEY Normal [facility] Basic metabolic 2000 panelon 11-14-2024 Anion gap [Moles/Vol] 11 mmol/L Normal 8-15 [facility] Comment on above: Order Comment: Speci men Type: BLOOD SPECIMENOrdering Facility: [facility] Address: [address] [place] [address] Performed By: #### 2 4321-2, 17517-8, 2777-1, 42359-9 ####[facility] LABCLIA [id number] [place] [address] [place] Calcium [Mass/Vol] 8.9 mg/dL Normal 8.5-10.2 [facility] Comment on above: Order Comment: Speci men Type: BLOOD SPECIMENOrdering Facility: [facility] Address: [address] [place] [address] Performed By: #### 2 4321-2, 35166-4, 2777-1, 02281-0 ####[facility] LABCLIA [id number] [place] [id number] [place] Chloride [Moles/Vol] 99 mmol/L Normal 98-107 [facility] Comment on above: Order Comment: Speci men Type: BLOOD SPECIMENOrdering Facility: [facility] Address: [address] [place] [address] Performed By: #### 2 4321-2, 00513-2, 2777-1, 44895-7 ####[facility] LABIA [id number] [place] [address] [place] CO2 [Moles/Vol] 17 mmol/L Low 22-30 [facility] Comment on above: Order Comment: Speci men Type: BLOOD SPECIMENOrdering Facility: [facility] Address: [address] [place] [address] Performed By: #### 2 4321-2, 40307-2, 2777-1, 92160-4 ####[facility] LABIA [id number] [place] [address] [place] Creatinine [Mass/Vol] 0.89 mg/dL Normal 0.73-1.22 [facility] Comment on above: Order Comment: Speci men Type: BLOOD SPECIMENOrdering Facility: [facility] Address: [address] [place] [address] Performed By: #### 2 4321-2, 54706-4, 2777-1, 64409-8 ####[facility] LABIA [id number] [place] [id number] [place] Creatinine and Glomerular filtration rate.predicted panel (S/P/Bld) 99 mL/min/1.73m??? Normal >=60 [facility] Comment on above: Order Comment: Speci men Type: BLOOD SPECIMENOrdering Facility: [facility] Address: [address] [place] [address] Result Comment: Patric mated Glomerular Filtration Rate [...] actual GFR. Performed By: #### 2 4321-2, 82136-7, 2776-08, ####[facility] LABCLIA [id number] [address] [address] [place] Glucose [Mass/Vol] 250 mg/dL High 74-99 [facility] Comment on above: Order Comment: Spechelder ramirez Type: BLOOD SPECIMENOrdering Facility: [facility] Address: [address] [place] [id number] Result Comment: The [place] Diabetes Association (ADA) provides guidance for cutoff [...] Standards of Medical Care in Diabetes 2016, [place] [employer]. Diabetes Care. 2016.39(Suppl 1). Performed By: #### 2 4321-2, 87438-4, 2776-08, ####[facility] LABIA [id number] [address] [address] [place] Potassium [Moles/Vol] 3.6 mmol/L Low 3.7-5.1 [facility] Comment on above: Order Comment: Speci men Type: BLOOD SPECIMENOrdering Facility: [facility] Address: [address] [place] [address] Performed By: #### 2 4321-2, 68966-7, 2777-1, 55957-6 ####[facility] LABCLIA [id number] [place] [address] [place] Sodium [Moles/Vol] 127 mmol/L Low 136-144 [facility] Comment on above: Order Comment: Speci men Type: BLOOD SPECIMENOrdering Facility: [facility] Address: [address] [place] [address] Performed By: #### 2 4321-2, 57745-4, 2777-1, 24384-5 ####[facility] LABCLIA [id number] [place] [address] [place] Urea nitrogen [Mass/Vol] 14 mg/dL Normal 9-24 [facility] Comment on above: Order Comment: Speci men Type: BLOOD SPECIMENOrdering Facility: [facility] Address: [address] [place] [address] Performed By: #### 2 4321-2, 46121-9, 2777-1, 77307-8 ####[facility] LABCLIA [id number] [place] [address] [place] CBC W Auto Differential pane l (Bld)on 11-14-2024 Basophils (Bld) [#/Vol] 0.04 10*3/uL Normal <0.11 [facility] Comment on above: Order Comment: Speci men Type: BLOOD SPECIMENOrdering Facility: [facility] Address: [address] [place] [address] Performed By: #### 5 7021-8 ####[facility] LABIA [id number] [place] [address] [place] Basophils/100 WBC (Bld) 0.7 % Normal [facility] Comment on above: Order Comment: Speci men Type: BLOOD SPECIMENOrdering Facility: [facility] Address: [address] [place] [address] Performed By: #### 5 7021-8 ####[facility] LABCLIA [id number] [place] [address] [place] Differential cell count method Nom (Bld) Auto Normal [facility] Comment on above: Order Comment: Speci men Type: BLOOD SPECIMENOrdering Facility: [facility] Address: [address] [place] [address] Performed By: #### 5 7021-8 ####[facility] LABCLIA [id number] [place] [address] [place] Eosinophils (Bld) [#/Vol] 0.23 10*3/uL Normal <0.46 [facility] Comment on above: Order Comment: Speci men Type: BLOOD SPECIMENOrdering Facility: [facility] Address: [address] [place] [address] Performed By: #### 5 7021-8 ####[facility] LABIA [id number] [place] [address] [place] Eosinophils/100 WBC (Bld) 4.1 % Normal [facility] Comment on above: Order Comment: Speci men Type: BLOOD SPECIMENOrdering Facility: [facility] Address: [address] [place] [address] Performed By: #### 5 7021-8 ####[facility] LABIA [id number] [place] [address] [place] Erythrocyte distribution width (RBC) [Ratio] 16.3 % High 11.5-15.0 [facility] Comment on above: Order Comment: Speci men Type: BLOOD SPECIMENOrdering Facility: [facility] Address: [address] [place] [address] Performed By: #### 5 7021-8 ####[facility] LABCLIA [id number] [place] [address] [place] Hematocrit (Bld) [Volume fraction] 22.7 % Low 39.0-51.0 [facility] Comment on above: Order Comment: Speci men Type: BLOOD SPECIMENOrdering Facility: [facility] Address: [address] [place] [address] Performed By: #### 5 7021-8 ####[facility] LABCLIA [id number] [place] [address] [place] Hemoglobin (Bld) [Mass/Vol] 7.9 g/dL Low 13.0-17.0 [facility] Comment on above: Order Comment: Speci men Type: BLOOD SPECIMENOrdering Facility: [facility] Address: [address] [place] [address] Performed By: #### 5 7021-8 ####[facility] LABCLIA [id number] [place] [address] [place] Immature granulocytes (Bld) [#/Vol] 0.04 10*3/uL Normal <0.10 [facility] Comment on above: Order Comment: Speci men Type: BLOOD SPECIMENOrdering Facility: [facility] Address: [address] [place] [address] Performed By: #### 5 7021-8 ####[facility] LABCLIA [id number] [place] [address] [place] Immature granulocytes/100 WBC (Bld) 0.7 % Normal [facility] Comment on above: Order Comment: Speci men Type: BLOOD SPECIMENOrdering Facility: [facility] Address: [address] [place] [address] Performed By: #### 5 7021-8 ####[facility] LABIA [id number] [place] [address] [place] Lymphocytes (Bld) [#/Vol] 0.72 10*3/uL Low 1.00-4.00 [facility] Comment on above: Order Comment: Speci men Type: BLOOD SPECIMENOrdering Facility: [facility] Address: [address] [place] [address] Performed By: #### 5 7021-8 ####[facility] LABIA [id number] [place] [address] [place] Lymphocytes/100 WBC (Bld) 12.8 % Normal [facility] Comment on above: Order Comment: Speci men Type: BLOOD SPECIMENOrdering Facility: [facility] Address: [address] [place] [address] Performed By: #### 5 7021-8 ####[facility] LABIA [id number] [place] [address] [place] MCH (RBC) [Entitic mass] 31.7 pg Normal 26.0-34.0 [facility] Comment on above: Order Comment: Speci men Type: BLOOD SPECIMENOrdering Facility: [facility] Address: [address] [place] [address] Performed By: #### 5 7021-8 ####[facility] LABIA [id number] [place] [address] [place] MCHC (RBC) [Mass/Vol] 34.8 g/dL Normal 30.5-36.0 [facility] Comment on above: Order Comment: Speci men Type: BLOOD SPECIMENOrdering Facility: [facility] Address: [address] [place] [address] Performed By: #### 5 7021-8 ####[facility] LABIA [id number] [place] [id number] [place] MCV (RBC) [Entitic vol] 91.2 fL Normal 80.0-100.0 [facility] Comment on above: Order Comment: Speci men Type: BLOOD SPECIMENOrdering Facility: [facility] Address: [address] [place] [address] Performed By: #### 5 7021-8 ####[facility] LABIA [id number] [id number] [address] [place] Monocytes (Bld) [#/Vol] 0.68 10*3/uL Normal <0.87 [facility] Comment on above: Order Comment: Speci men Type: BLOOD SPECIMENOrdering Facility: [facility] Address: [address] [place] [address] Performed By: #### 5 7021-8 ####[facility] LABCLIA [id number] [place] [address] [place] Monocytes/100 WBC (Bld) 12.1 % Normal [facility] Comment on above: Order Comment: Speci men Type: BLOOD SPECIMENOrdering Facility: [facility] Address: [address] [place] [address] Performed By: #### 5 7021-8 ####[facility] LABCLIA [id number] [place] [address] [place] Neutrophils (Bld) [#/Vol] 3.92 10*3/uL Normal 1.45-7.50 [facility] Comment on above: Order Comment: Speci men Type: BLOOD SPECIMENOrdering Facility: [facility] Address: [address] [place] [address] Performed By: #### 5 7021-8 ####[facility] LABCLIA [id number] [place] [id number] [place] Neutrophils/100 WBC (Bld) 69.6 % Normal [facility] Comment on above: Order Comment: Speci men Type: BLOOD SPECIMENOrdering Facility: [facility] Address: [address] [place] [address] Performed By: #### 5 7021-8 ####[facility] LABCLIA [id number] [place] [address] [place] Nucleated RBC (Bld) [#/Vol] 10*3/uL Normal <0.01 [facility] Comment on above: Order Comment: Speci men Type: BLOOD SPECIMENOrdering Facility: [facility] Address: [address] [place] [address] Performed By: #### 5 7021-8 ####[facility] LABIA [id number] [place] [address] [place] Nucleated RBC/100 WBC (Bld) [Ratio] 0.0 /100 WBC Normal [facility] Comment on above: Order Comment: Speci men Type: BLOOD SPECIMENOrdering Facility: [facility] Address: [address] [place] [address] Performed By: #### 5 7021-8 ####[facility] LABIA [id number] [place] [address] [place] Platelet mean volume (Bld) [Entitic vol] 12.1 fL Normal 9.0-12.7 [facility] Comment on above: Order Comment: Speci men Type: BLOOD SPECIMENOrdering Facility: [facility] Address: [address] [place] [address] Performed By: #### 5 7021-8 ####[facility] LABIA [id number] [place] [address] [place] Platelets (Bld) [#/Vol] 43 10*3/uL Low 150-400 [facility] Comment on above: Order Comment: Speci men Type: BLOOD SPECIMENOrdering Facility: [facility] Address: [address] [place] [address] Result Comment: Resu lts checked and verified.No clot detected. Performed By: #### 5 7021-8 ####[facility] LABIA [id number] [place] [address] [place] RBC (Bld) [#/Vol] 2.49 10*6/uL Low 4.20-6.00 [facility] Comment on above: Order Comment: Speci men Type: BLOOD SPECIMENOrdering Facility: [facility] Address: [address] [place] [address] Performed By: #### 5 7021-8 ####[facility] LABIA [id number] [address] [address] [place] WBC (Bld) [#/Vol] 5.63 10*3/uL Normal 3.70-11.00 [facility] Comment on above: Order Comment: Speci men Type: BLOOD SPECIMENOrdering Facility: [facility] Address: [address] [place] [address] Performed By: #### 5 7021-8 ####[facility] LABIA [id number] [address] [address] [place] Fibrinogen PPP-mCncon 2024 Fibrinogen Coag (PPP) [Mass/Vol] 119 mg/dL Low 200-400 [facility] Comment on above: Order Comment: Speci men Type: BLOOD SPECIMENOrdering Facility: [facility] Address: [address] [place] [address] Performed By: #### 3 255-7, 11173-9 ####[facility] [id number] [place] [id number] [place] Hepatic function 2000 panelo n 11-14-2024 Albumin [Mass/Vol] 2.8 g/dL Low 3.9-4.9 [facility] Comment on above: Order Comment: Speci men Type: BLOOD SPECIMENOrdering Facility: [facility] Address: [address] [place] [address] Performed By: #### 2 4321-2, 12681-5, 2777-1, 25526-0 ####[facility] [id number] [place] [id number] [place] ALP [Catalytic activity/Vol] 248 U/L High 38-113 [facility] [place] Comment on above: Order Comment: Speci men Type: BLOOD SPECIMENOrdering Facility: [facility] Address: [address] [place] [address] Performed By: #### 2 4321-2, 64600-0, 2777-1, ####[facility] LABCLIA [id number] [address] [address] [place] ALT [Catalytic activity/Vol] 29 U/L Normal 10-54 [facility] [place] Comment on above: Order Comment: Speci men Type: BLOOD SPECIMENOrdering Facility: [facility] Address: [address] [place] [address] Performed By: #### 2 4321-2, 92776-7, 2776-08, ####[facility] LABCLIA [id number] [address] [address] [place] AST [Catalytic activity/Vol] 62 U/L High 14-40 [facility] [place] Comment on above: Order Comment: Speci men Type: BLOOD SPECIMENOrdering Facility: [facility] Address: [address] [place] [address] Performed By: #### 2 4321-2, 43131-8, 2776-08, ####[facility] LABCLIA [id number] [address] [address] [place] Bilirubin [Mass/Vol] 1.7 mg/dL High 0.2-1.3 [facility] Comment on above: Order Comment: Speci men Type: BLOOD SPECIMENOrdering Facility: [facility] Address: [address] [place] [address] Performed By: #### 2 4321-2, 77507-8, 2776-08, ####[facility] LABIA [id number] [address] [address] [place] Bilirubin.conjugated [Mass/Vol] 1.0 mg/dL High <0.3 [facility] [place] Comment on above: Order Comment: Speci men Type: BLOOD SPECIMENOrdering Facility: [facility] Address: [address] [place] [address] Performed By: #### 2 4321-2, 97693-0, 2776-08, ####[facility] LABIA [id number] [place] [id number] [place] Protein [Mass/Vol] 5.4 g/dL Low 6.3-8.0 [facility] Comment on above: Order Comment: Ezekiel ramirez Type: BLOOD SPECIMENOrdering Facility: [facility] Address: [address] [place] [address] Performed By: #### 2 4321-2, 72119-5, 2776-08, ####[facility] [id number] [place] [address] [place] Magnesium SerPl-mCncon 11-14 Magnesium [Mass/Vol] 1.6 mg/dL Low 1.7-2.3 [facility] Comment on above: Order Comment: Ezekiel ramirez Type: BLOOD SPECIMENOrdering Facility: [facility] Address: [address] [place] [address] Performed By: #### 2 4321-2, 41330-9, 2776-08, ####[facility] [id number] [place] [address] [place] PT panel Coag (PPP)on 2024 INR Coag (PPP) [Relative time] 1.8 {INR} High 0.9-1.3 [facility] [place] Comment on above: Order Comment: Ezekiel ramirez Type: BLOOD SPECIMENOrdering Facility: [facility] Address: [address] [place] [address] Result Comment: Sarah min K Antagonist (VKA) Therapeutic Range: INR 2 to 3 (Target INR of 2.5)Note: For patients treated with VKA drugs, such as warfarin, the [employer] 2012 Guideline recommends [...] al. Chest 2012, 141:7S-47SHector RA, et al. [facility] 2017, 70: 252-289 Performed By: #### 3 255-7, 95193-9 ####[facility] [id number] [place] [address] [place] PT Coag (PPP) [Time] 19.2 s High 9.7-13.0 [facility] Comment on above: Order Comment: Speci men Type: BLOOD SPECIMENOrdering Facility: [facility] Address: [address] [place] [address] Performed By: #### 3 255-7, 18594-1 ####[facility] [id number] [place] [address] [place] Phosphate SerPl-mCncon 11-14 Phosphate [Mass/Vol] 1.9 mg/dL Low 2.7-4.8 [facility] Comment on above: Order Comment: Speci men Type: BLOOD SPECIMENOrdering Facility: [facility] Address: [address] [place] [address] Performed By: #### 2 4321-2, 24747-1, 2777-1, 79048-1 ####[facility] [id number] [place] [address] [place] URINALYSIS, REFLEX MICROSCOP ICon 11-14-2024 Bacteria LM.HPF (Urine sed) [#/Area] Negative Normal Negative [facility] [place] Comment on above: Order Comment: Speci men Type: URINE SPECIMENOrdering Facility: [facility] Address: [address] [place] [address] Performed By: #### L [id number] ####[facility] LABCLIA [id number] [address] [place] [address] [place] Bilirubin Ql (U) 1+ Abnormal Negative [facility] Comment on above: Order Comment: Speci men Type: URINE SPECIMENOrdering Facility: [facility] Address: [address] [place] [address] Result Comment: Sugg est correlation with clinical findings and serum bilirubin if clinically indicated. Performed By: #### L [id number] ####[facility] LABCLIA [id number] [place] [address] [place] Clarity (Unsp spec) Cloudy Abnormal Clear [facility] Comment on above: Order Comment: Speci men Type: URINE SPECIMENOrdering Facility: [facility] Address: [address] [place] [address] Performed By: #### L [id number] ####[facility] LABCLIA [id number] [place] [address] [place] Color (U) Meriwether Abnormal Yellow [facility] [place] Comment on above: Order Comment: Speci men Type: URINE SPECIMENOrdering Facility: [facility] Address: [address] [place] [address] Performed By: #### L [id number] ####[facility] LABCLIA [id number] [place] [id number] [place] Epithelial cells LM.HPF (Urine sed) [#/Area] None Seen Normal [facility] [place] Comment on above: Order Comment: Speci men Type: URINE SPECIMENOrdering Facility: [facility] Address: [address] [place] [address] Performed By: #### L [id number] ####[facility] LABCLIA [id number] [place] [id number] [place] Glucose Test strip (U) [Mass/Vol] Negative Normal Negative [facility] [place] Comment on above: Order Comment: Speci men Type: URINE SPECIMENOrdering Facility: [facility] Address: [address] [place] [address] Performed By: #### L [id number] ####[facility] LABCLIA [id number] [place] [address] [place] Hemoglobin Ql (U) 3+ Abnormal Negative [facility] Comment on above: Order Comment: Speci men Type: URINE SPECIMENOrdering Facility: [facility] Address: [address] [place] [address] Performed By: #### L [id number] ####[facility] LABCLIA [id number] [place] [address] [place] Hyaline casts (Urine sed) [#/Area] 0 /[LPF] Normal 0 /LPF [facility] [place] Comment on above: Order Comment: Speci men Type: URINE SPECIMENOrdering Facility: [facility] Address: [address] [place] [address] Performed By: #### L [id number] ####[facility] LABCLIA [id number] [place] [address] [place] Ketones Ql (U) Negative Normal Negative [facility] [place] Comment on above: Order Comment: Speci men Type: URINE SPECIMENOrdering Facility: [facility] Address: [address] [place] [address] Performed By: #### L [id number] ####[facility] LABCLIA [id number] [place] [address] [place] Leukocyte esterase Test strip Ql (U) 3+ Abnormal Negative [facility] [place] Comment on above: Order Comment: Speci men Type: URINE SPECIMENOrdering Facility: [facility] Address: [address] [place] [address] Performed By: #### L [id number] ####[facility] LABCLIA [id number] [place] [address] [place] Nitrite Ql (U) Negative Normal Negative [facility] [place] Comment on above: Order Comment: Speci men Type: URINE SPECIMENOrdering Facility: [facility] Address: [address] [place] [address] Performed By: #### L [id number] ####[facility] LABCLIA [id number] [place] [address] [place] pH (U) 6.0 [pH] Normal <8.5 [facility] [place] Comment on above: Order Comment: Speci men Type: URINE SPECIMENOrdering Facility: [facility] Address: [address] [place] [address] Performed By: #### L [id number] ####[facility] LABIA [id number] [place] [address] [place] Protein (U) [Mass/Vol] 2+ Abnormal Negative [facility] Comment on above: Order Comment: Speci men Type: URINE SPECIMENOrdering Facility: [facility] Address: [address] [place] [address] Performed By: #### L [id number] ####[facility] LABIA [id number] [place] [address] [place] RBC LM.HPF (Urine sed) [#/Area] /[HPF] Abnormal 0-2 /HPF [facility] [place] Comment on above: Order Comment: Speci men Type: URINE SPECIMENOrdering Facility: [facility] Address: [address] [place] [address] Performed By: #### L [id number] ####[facility] LABIA [id number] [place] [address] [place] Specific gravity (U) [Rel density] 1.017 Normal 1.005-1.030 [facility] [place] Comment on above: Order Comment: Speci men Type: URINE SPECIMENOrdering Facility: [facility] Address: [address] [place] [address] Performed By: #### L [id number] ####[facility] LABIA [id number] [place] [address] [place] Urobilinogen Ql (U) 0.2 EU/dL Normal 0.2-1.0 EU/dL [facility] [place] Comment on above: Order Comment: Speci men Type: URINE SPECIMENOrdering Facility: [facility] Address: [address] [place] [address] Performed By: #### L [id number] ####[facility] LABIA [id number] [place] [address] [place] WBC LM.HPF (Urine sed) [#/Area] /[HPF] Abnormal 0-5 /HPF [facility] [place] Comment on above: Order Comment: Speci men Type: URINE SPECIMENOrdering Facility: [facility] Address: [address] [place] [address] Performed By: #### L [id number] ####[facility] [id number] [address] [place] Yeast.budding LM.HPF (Urine sed) [#/Area] Present Abnormal None Seen [facility] [place] Comment on above: Order Comment: Speci men Type: URINE SPECIMENOrdering Facility: [facility] Address: [address] [place] [address] Performed By: #### L [id number] ####[facility] [id number] [place] [address] [place] 25(OH)D3 [facility] 25-hydroxyvitamin D3 [Mass/Vol] 16.2 ng/mL Low 31.0-80.0 [facility] [place] Comment on above: Order Comment: Speci men Type: BLOOD SPECIMENOrdering Facility: [facility] Address: [address] [place] [address] Performed By: #### 7 852-7, MEASLG, VZVG2, 1989-3 ####[facility] LABIA [id number] [place] [address] [place] A-Tocopherol Vit E SerPl-mCn con 11-13-2024 Alpha tocopherol [Mass/Vol] 3.3 mg/L Low 6.0-23.0 [facility] [place] Comment on above: Order Comment: Speci men Type: BLOOD SPECIMENOrdering Facility: [facility] Address: [address] [place] [address] Performed By: #### 2 923-1, 1823-4 ####[facility] LABCLIA [id number] [place] [address] [place] ALPHA-1 ANTITRYPSIN GENOon 0 11-13-2024 HA1AT REVIEWED BY Michelle [facility] Comment on above: Order Comment: Speci men Type: BLOOD SPECIMENOrdering Facility: [facility] Address: [address] [place] [address] Result Comment: [facility] a-1 Antitrypsin GenotypingLaboratory Accession Number: [id number]:No Variant Detected in SERPINA1 (PI*MM)Interpretation:DNA testing indicates [...] the two mostcommon pathogenic variants: S (c.863A>T, p.Omm213Sam, g.34002507), Z(c.1096G>A, p.Zip914Uoo, g.15199057), and the rarer variants: F(c.739C>T, p.Gto883Gqf, g.80823666), I (c.187C>T, p.Anm64Pjq,g.62938462).Limitations:This Laboratory Developed Test (LDT) is designed to [...] was developed and its performance characteristics determinedby [facility]'s [facility] and [facility] Medicine Department. Ithas not been cleared or approved by the FDA. [facility]'s[facility] is regulated under CLIAas certified to perform high-complexity testing. This test is used forclinical purposes. It should not be regarded as investigational or forresearch.Test performed at [facility], [address] [place] [address], [place]. CLIA Number: [id number]:1) Kait RA, Samir G, Essence ML, Ilan M, Kai CE, K,Jadyn LAURENT, Princess SL, Suman JM, Ivania OliveiraK, Haider C, Renée J.The Diagnosis and Management of Alpha-1 Antritrypsin Deficiency inthe Adult. Chronic Obstr Pulm Dis. 2016 Jan 07;3:668-682.2) Renee JA, Linsey ON, Rachele ER, Khushi DG. a1-Antitrypsinphenotypes and associated serum protein concentrations in a largeclinical population. Chest.2012;143(4):1000-8.3) Elmo Marte, Toña NA, Brad CR, Jennifer FJ, Salvador SJ, Nicole. Molecular characterisation of three wlfsl-4-iqdslkjyerc deficiencyvariants: proteinase inhibitor (Pi) nullcardiff (Gxc885----Bqx);PiMmalton (Jqk92----jvagsdgd) and PiI (Yrx48----Hjw). Hum Trisha. 1988Dec;84(1):55-8.4) Flor WHITFIELD and Kait HIRSCH. Clinical practice.Alpha1-antitrypsin deficiency. N Engl J Med. 2008;360(16)3889-66.5) Margot [place], Kwame F, Prakash HIRSCH. The significance of the F variantof liaxe-7-ltkcxrisgbw and unique case report of a PiFF homozygote.[facility] Pulm Med. 2014 Mar 10;14:132.6) Ivania OliveiraK, Elena [place], and Jaziel Carlson. Alpha-1 AntitrypsinDeficiency. 2005May 30 [Updated 2017 August 22]. In: Juanito HIRSCH, Barbara, Nemesio TO, et al., editors. GeneReviews [Internet]. [place]):[facility], [place]; 1384-7240. Available from:http://www.ncbi.nlm.nih.gov/books/XDB1771/Interpretation performed at remote location (R0A1) by Fifi España MD Performed By: #### H A1AT ####[facility] [id number] [place] [address] [place] ANES POSTPROC EVALon 025 ANES POSTPROC EVAL Normal [facility] ANES PRE-OPon 11-13-2024 ANES PRE-OP Normal [facility] [place] Alpha tocopherol [Mass/Vol]o n 11-13-2024 Beta+gamma tocopherol [Mass/Vol] 0.6 mg/L Normal 0.3-3.2 [facility] [place] Comment on above: Order Comment: Speci men Type: BLOOD SPECIMENOrdering Facility: [facility] Address: [address] [place] [address] Result Comment: This test was developed, and its performance characteristics determined by the [facility] Department of Pathology and Laboratory Medicine. It has not been cleared or approved by the FDA. The [facility] Department of Pathology and Laboratory Medicine is regulated under CLIA as qualified to perform high-complexity testing. This test is used for clinical purposes. It should not be regarded as investigational or for research. Performed By: #### 2 923-1, 1823-4 ####[facility] [id number] [place] [address] [place] Basic metabolic 2000 panelon 11-13-2024 Anion gap [Moles/Vol] 9 mmol/L Normal 8-15 [facility] Comment on above: Order Comment: Speci men Type: BLOOD SPECIMENOrdering Facility: [facility] Address: [address] [place] [address] Performed By: #### 2 4321-2, 06031-4, 51164-9, 80490-1 ####[facility] [id number] [place] [address] [place] Calcium [Mass/Vol] 9.1 mg/dL Normal 8.5-10.2 [facility] Comment on above: Order Comment: Speci men Type: BLOOD SPECIMENOrdering Facility: [facility] Address: [address] [place] [address] Performed By: #### 2 4321-2, 24735-4, 98700-2, 27177-6 ####[facility] LABIA [id number] [place] [id number] [place] Chloride [Moles/Vol] 99 mmol/L Normal 98-107 [facility] Comment on above: Order Comment: Speci men Type: BLOOD SPECIMENOrdering Facility: [facility] Address: [address] [place] [address] Performed By: #### 2 4321-2, 61347-8, 80951-7, 86372-3 ####[facility] [id number] [place] [id number] [place] CO2 [Moles/Vol] 16 mmol/L Low 22-30 [facility] [place] Comment on above: Order Comment: Speci men Type: BLOOD SPECIMENOrdering Facility: [facility] Address: [address] [place] [address] Performed By: #### 2 4321-2, 72273-1, 84643-9, 34132-6 ####[facility] [id number] [place] [address] [place] Creatinine [Mass/Vol] 1.10 mg/dL Normal 0.73-1.22 [facility] Comment on above: Order Comment: Speci men Type: BLOOD SPECIMENOrdering Facility: [facility] Address: [address] [place] [address] Performed By: #### 2 4321-2, 89844-2, 45439-6, 19883-1 ####[facility] [id number] [place] [address] [place] Creatinine and Glomerular filtration rate.predicted panel (S/P/Bld) 78 mL/min/1.73m??? Normal >=60 [facility] [place] Comment on above: Order Comment: Speci men Type: BLOOD SPECIMENOrdering Facility: [facility] Address: [address] [place] [address] Result Comment: Patric mated Glomerular Filtration Rate [...] actual GFR. Performed By: #### 2 4321-2, 71297-7, 96201-2, 01725-5 ####[facility] LABCLIA [id number] [place] [id number] [place] Glucose [Mass/Vol] 278 mg/dL High 74-99 [facility] Comment on above: Order Comment: Speci men Type: BLOOD SPECIMENOrdering Facility: [facility] Address: [address] [place] [address] Result Comment: The [place] [employer] (ADA) provides guidance for cutoff [...] Standards of Medical Care in Diabetes 2016, [place] [employer]. Diabetes Care. 2016.39(Suppl 1). Performed By: #### 2 4321-2, 52042-1, 50384-6, 28817-2 ####[facility] LABCLIA [id number] [place] [id number] [place] Potassium [Moles/Vol] 4.1 mmol/L Normal 3.7-5.1 [facility] Comment on above: Order Comment: Speci men Type: BLOOD SPECIMENOrdering Facility: [facility] Address: [address] [place] [address] Performed By: #### 2 4321-2, 87080-7, 61260-8, 09115-0 ####[facility] LABCLIA [id number] [place] [id number] [place] Sodium [Moles/Vol] 124 mmol/L Low 136-144 [facility] Comment on above: Order Comment: Speci men Type: BLOOD SPECIMENOrdering Facility: [facility] Address: [address] [place] [address] Performed By: #### 2 4321-2, 27661-9, 34553-6, 79521-4 ####[facility] LABCLIA [id number] [place] [address] [place] Urea nitrogen [Mass/Vol] 20 mg/dL Normal 9-24 [facility] [place] Comment on above: Order Comment: Speci men Type: BLOOD SPECIMENOrdering Facility: [facility] Address: [address] [place] [address] Performed By: #### 2 4321-2, 29409-5, 14511-0, 15868-6 ####[facility] LABCLIA [id number] [place] [address] [place] CBC W Auto Differential pane l (Bld)on 11-13-2024 Basophils (Bld) [#/Vol] 10*3/uL Normal <0.11 [facility] Comment on above: Order Comment: Speci men Type: BLOOD SPECIMENOrdering Facility: [facility] Address: [address] [place] [address] Performed By: #### 5 7021-8 ####[facility] LABIA [id number] [place] [address] [place] Basophils/100 WBC (Bld) 0.4 % Normal [facility] Comment on above: Order Comment: Speci men Type: BLOOD SPECIMENOrdering Facility: [facility] Address: [address] [place] [address] Performed By: #### 5 7021-8 ####[facility] LABIA [id number] [place] [address] [place] Differential cell count method Nom (Bld) Auto Normal [facility] Comment on above: Order Comment: Speci men Type: BLOOD SPECIMENOrdering Facility: [facility] Address: [address] [place] [address] Performed By: #### 5 7021-8 ####[facility] LABCLIA [id number] [facility] [address] [place] [address] [place] Eosinophils (Bld) [#/Vol] 0.18 10*3/uL Normal <0.46 [facility] Comment on above: Order Comment: Speci men Type: BLOOD SPECIMENOrdering Facility: [facility] Address: [address] [place] [address] Performed By: #### 5 7021-8 ####[facility] LABCLIA [id number] [facility] [address], [place] [address] [place] Eosinophils/100 WBC (Bld) 3.3 % Normal [facility] Comment on above: Order Comment: Speci men Type: BLOOD SPECIMENOrdering Facility: [facility] Address: [address] [place] [address] Performed By: #### 5 7021-8 ####[facility] LABCLIA [id number] [address], [place] [address] [place] Erythrocyte distribution width (RBC) [Ratio] 17.0 % High 11.5-15.0 [facility] Comment on above: Order Comment: Speci men Type: BLOOD SPECIMENOrdering Facility: [facility] Address: [address] [place] [address] Performed By: #### 5 7021-8 ####[facility] LABCLIA [id number] [address], [facility] [place] Hematocrit (Bld) [Volume fraction] 21.6 % Low 39.0-51.0 [facility] Comment on above: Order Comment: Speci men Type: BLOOD SPECIMENOrdering Facility: [facility] Address: [address] [place] [address] Performed By: #### 5 7021-8 ####[facility] LABCLIA [id number] [facility] [address], [facility] [place] Hemoglobin (Bld) [Mass/Vol] 7.4 g/dL Low 13.0-17.0 [facility] Comment on above: Order Comment: Speci men Type: BLOOD SPECIMENOrdering Facility: [facility] Address: [address] [place] [address] Performed By: #### 5 7021-8 ####[facility] LABCLIA [id number] [facility] [place] [address] [place] Immature granulocytes (Bld) [#/Vol] 0.04 10*3/uL Normal <0.10 [facility] Comment on above: Order Comment: Speci men Type: BLOOD SPECIMENOrdering Facility: [facility] Address: [address] [place] [address] Performed By: #### 5 7021-8 ####[facility] LABCLIA [id number] [place] [address] [place] Immature granulocytes/100 WBC (Bld) 0.7 % Normal [facility] Comment on above: Order Comment: Speci men Type: BLOOD SPECIMENOrdering Facility: [facility] Address: [address] [place] [address] Performed By: #### 5 7021-8 ####[facility] LABCLIA [id number] [place] [address] [place] Lymphocytes (Bld) [#/Vol] 0.64 10*3/uL Low 1.00-4.00 [facility] Comment on above: Order Comment: Speci men Type: BLOOD SPECIMENOrdering Facility: [facility] Address: [address] [place] [address] Performed By: #### 5 7021-8 ####[facility] LABCLIA [id number] [place] [address] [place] Lymphocytes/100 WBC (Bld) 11.6 % Normal [facility] Comment on above: Order Comment: Speci men Type: BLOOD SPECIMENOrdering Facility: [facility] Address: [address] [place] [address] Performed By: #### 5 7021-8 ####[facility] LABIA [id number] [place] [address] [place] MCH (RBC) [Entitic mass] 31.8 pg Normal 26.0-34.0 [facility] Comment on above: Order Comment: Speci men Type: BLOOD SPECIMENOrdering Facility: [facility] Address: [address] [place] [address] Performed By: #### 5 7021-8 ####[facility] LABIA [id number] [place] [address] [place] MCHC (RBC) [Mass/Vol] 34.3 g/dL Normal 30.5-36.0 [facility] Comment on above: Order Comment: Speci men Type: BLOOD SPECIMENOrdering Facility: [facility] Address: [address] [place] [address] Performed By: #### 5 7021-8 ####[facility] [id number] [place] [address] [place] MCV (RBC) [Entitic vol] 92.7 fL Normal 80.0-100.0 [facility] Comment on above: Order Comment: Speci men Type: BLOOD SPECIMENOrdering Facility: [facility] Address: [address] [place] [address] Performed By: #### 5 7021-8 ####[facility] LABIA [id number] [place] [address] [place] Monocytes (Bld) [#/Vol] 0.68 10*3/uL Normal <0.87 [facility] Comment on above: Order Comment: Speci men Type: BLOOD SPECIMENOrdering Facility: [facility] Address: [address] [place] [address] Performed By: #### 5 7021-8 ####[facility] [id number] [place] [address] [place] Monocytes/100 WBC (Bld) 12.4 % Normal [facility] Comment on above: Order Comment: Speci men Type: BLOOD SPECIMENOrdering Facility: [facility] Address: [address] [place] [address] Performed By: #### 5 7021-8 ####[facility] LABCLIA [id number] [place] [address] [place] Neutrophils (Bld) [#/Vol] 3.94 10*3/uL Normal 1.45-7.50 [facility] Comment on above: Order Comment: Speci men Type: BLOOD SPECIMENOrdering Facility: [facility] Address: [address] [place] [address] Performed By: #### 5 7021-8 ####[facility] LABCLIA [id number] [place] [address] [place] Neutrophils/100 WBC (Bld) 71.6 % Normal [facility] Comment on above: Order Comment: Speci men Type: BLOOD SPECIMENOrdering Facility: [facility] Address: [address] [place] [address] Performed By: #### 5 7021-8 ####[facility] LABCLIA [id number] [place] [address] [place] Nucleated RBC (Bld) [#/Vol] 10*3/uL Normal <0.01 [facility] Comment on above: Order Comment: Speci men Type: BLOOD SPECIMENOrdering Facility: [facility] Address: [address] [place] [address] Performed By: #### 5 7021-8 ####[facility] LABCLIA [id number] [place] [address] [place] Nucleated RBC/100 WBC (Bld) [Ratio] 0.0 /100 WBC Normal [facility] Comment on above: Order Comment: Speci men Type: BLOOD SPECIMENOrdering Facility: [facility] Address: [address] [place] [address] Performed By: #### 5 7021-8 ####[facility] LABIA [id number] [place] [address] [place] Platelet mean volume (Bld) [Entitic vol] 11.7 fL Normal 9.0-12.7 [facility] Comment on above: Order Comment: Speci men Type: BLOOD SPECIMENOrdering Facility: [facility] Address: [address] [place] [address] Performed By: #### 5 7021-8 ####[facility] LABIA [id number] [place] [address] [place] Platelets (Bld) [#/Vol] 38 10*3/uL Low 150-400 [facility] Comment on above: Order Comment: Speci men Type: BLOOD SPECIMENOrdering Facility: [facility] Address: [address] [place] [address] Result Comment: Resu lts checked and verified.No clot detected. Performed By: #### 5 7021-8 ####[facility] LABIA [id number] [place] [address] [place] RBC (Bld) [#/Vol] 2.33 10*6/uL Low 4.20-6.00 [facility] Comment on above: Order Comment: Speci men Type: BLOOD SPECIMENOrdering Facility: [facility] Address: [address] [place] [address] Performed By: #### 5 7021-8 ####[facility] LABIA [id number] [place] [address] [place] WBC (Bld) [#/Vol] 5.50 10*3/uL Normal 3.70-11.00 [facility] Comment on above: Order Comment: Speci men Type: BLOOD SPECIMENOrdering Facility: [facility] Address: [address] [place] [address] Performed By: #### 5 7021-8 ####[facility] LABCLIA [id number] [place] [address] [place] CMV IgG Qnon 11-13-2024 CMV IGG QUAL Negative Normal Negative [facility] Comment on above: Order Comment: Ezekiel ramirez Type: BLOOD SPECIMENOrdering Facility: [facility] Address: [address] [place] [address] Result Comment: No s erological evidence of past exposure to Cytomegalovirus. Cannot exclude recent infection if the specimen collected within 4-6 weeks after infection. Performed By: #### 7 852-7, MEASLG, VZVG2, 1988-10 ####[facility] LABCLIA [id number] [place] [address] [place] CMV IgG SerPl-aCncon 025 CMV IgG Qn 0.37 U/mL Normal [facility] Comment on above: Order Comment: Meggani james Type: BLOOD SPECIMENOrdering Facility: [facility] Address: [address] [place] [address] Result Comment: The magnitude of the measured result is not indicative of the amount of antibody present.U/mL values are interpreted as follows:Negative <0.6Equivocal 0.6 to <0.70Positive >=0.70 Performed By: #### 7 852-7, MEASLG, VZVG2, 1988-10 ####[facility] LABCLIA [id number] [place] [address] [place] CONSULT PROGon 11-13-2024 CONSULT PROG Normal [facility] CYTOLOGY NON-GYNon AP DISCLAIMER Normal [facility] Comment on above: Order Comment: Ezekiel ramirez Type: FLUID SPECIMENOrdering Facility: [facility] Address: [address] [place] [address] Result Comment: Shellie pugh Developed Test (LDT) Disclaimer:Performance characteristics of immunohistochemical, immunofluorescent, and chromogenic in-situ hybridization tests have been determined by the performing laboratory within [facility]'s [facility] Pathology and Laboratory Medicine Department ([facility], [facility], [facility], [facility], [facility], [facility], or [facility]) in a manner consistent with CLIA requirements. One or more of these tests may not have been cleared or approved by the FDA. [facility] is regulated under CLIA as qualified to perform high-complexity testing. These tests are used for clinical purposes. These should not be regarded as investigational or for research. Positive and negative controls stain appropriately. Performed By: #### C YTONON ####[facility] LABCLIA [id number] [place] [address] [place] CASE REPORT Normal [facility] Comment on above: Order Comment: Speci men Type: FLUID SPECIMENOrdering Facility: [facility] Address: [address] [place] [address] Result Comment: [facility] Cytology Report Case: [id number] Provider: Deb Fox MD Collected: 11/13/2024 02:46 PMOrdering Location: [place] [address] Received: 11/15/2024 05:01 AMPathologist: Foster Newton MDSpecimen: Urine, Midstream Performed By: #### C YTONON ####[facility] LABIA [id number] [place] [address] [place] CLINICAL HISTORY Staghorn calculi, s/ p L sided stenting with hematuria Normal [facility] Comment on above: Order Comment: Speci men Type: FLUID SPECIMENOrdering Facility: [facility] Address: [address] [place] [address] Performed By: #### C YTONON ####[facility] LABCLIA [id number] [address] STATES OF [facility] DIAGNOSIS COMMENT Normal [facility] Comment on above: Order Comment: Speci men Type: FLUID SPECIMENOrdering Facility: [facility] Address: [address] [place] [address] Result Comment: A. F ungal yeast forms are seen, morphologically consistent with Mary species. Clinical correlation is suggested. Performed By: #### C YTONON ####[facility] LABCLIA [id number] [address] FINAL DIAGNOSIS Normal [facility] Comment on above: Order Comment: Speci men Type: FLUID SPECIMENOrdering Facility: [facility] Address: [address] [place] [address] Result Comment: A - Urine, Voided: Negative for high-grade urothelial carcinoma. Abundant acute inflammation (see comment). at 1141 EDT Performed By: #### C YTONON ####[facility] LABCLIA [id number] [address] OF [facility] FINAL PERFORMING LAB Normal [facility] Comment on above: Order Comment: Speci men Type: FLUID SPECIMENOrdering Facility: [facility] Address: [address] [place] [address] Result Comment: Tech nical component, shearing machine tender screening performed at: [facility], [address] [place] [address] CLIA: [id number] interpretation performed at: [facility], [address] [place] [address] CLIA# [id number] Director: Titi Voss MD Performed By: #### C YTONON ####[facility] LABCLIA [id number] [address] OF [facility] GROSS DESCRIPTION Normal [facility] Comment on above: Order Comment: Speci men Type: FLUID SPECIMENOrdering Facility: [facility] Address: [address] [place] [address] Result Comment: A. U rine, Amalqisqn32 cc cloudy lexis fluid . ThinPrep prepared. Performed By: #### C YTONON ####[facility] LABCLIA [id number] [address] [place] EBV capsid IgG Qn (S)on 11-02 EBV VCA IGG, QUAL Positive Abnormal Negative [facility] Comment on above: Order Comment: Speci men Type: BLOOD SPECIMENOrdering Facility: [facility] Address: [address] [place] [address] Result Comment: The result suggests recent or past EBV infection. The final interpretation should be done in the context of other EBV serology panel results. Performed By: #### 8 039-0, 7885-7 ####[facility] LABCLIA [id number] [address] Fibrinogen PPP-mCncon 2024 Fibrinogen Coag (PPP) [Mass/Vol] 94 mg/dL Low 200-400 [facility] Comment on above: Order Comment: Speci [facility] Type: BLOOD SPECIMENOrdering Facility: [facility] Address: [address] [place] [address] Result Comment: Samp le checked for clot. Performed By: #### 3 4528-0, 3255-7 ####[facility] LABCLIA [id number] [address] HBV core Ab Ser Qlon 025 HBV core Ab Ql (S) Negative Normal Negative [facility] Comment on above: Order Comment: Speci [facility] Type: BLOOD SPECIMENOrdering Facility: [facility] Address: [address] [place] [address] Result Comment: No e vidence of current or past infection with Hepatitis B virus. Should recent infection be suspected, repeat testing may be considered 3-4 weeks after this draw. Performed By: #### 3 1201-7, 55980-0, AHAVG, 5195-3, 58032-7 ####[facility] LABCLIA [id number] [address] [place] HBV surface Ab Ql (S)on 11-02 HBV surface Ab Qn (S) <8.00 Normal [facility] Comment on above: Order Comment: Speci men Type: BLOOD SPECIMENOrdering Facility: [facility] Address: [address] [place] [address] Result Comment: <8 m IU/mL: No serological evidence of immunity to Hepatitis B Virus.>/= 8 to <12 mIU/mL: No serological evidence of immunity to Hepatitis B Virus.>/= 12 mIU/mL: Consistent with serological evidence of immunity to Hepatitis B Virus. Performed By: #### 3 1201-7, 41069-9, AHAVG, 5195-3, 05682-1 ####[facility] LABCLIA [id number] [place] [address] [place] HBV surface Ab Ser Qlon 11-02 HBV surface Ab Ql (S) Negative Normal [facility] Comment on above: Order Comment: Speci men Type: BLOOD SPECIMENOrdering Facility: [facility] Address: [address] [place] [address] Result Comment: No s erological evidence of immunity to Hepatitis B Virus. Performed By: #### 3 1201-7, 72651-6, AHAV, 5-3, 30213-8 ####[facility] LABCLIA [id number] [place] [address] [place] HBV surface Ag Ser Qlon 11-02 HBV surface Ag Ql (S) Negative Normal Negative [facility] Comment on above: Order Comment: Speci men Type: BLOOD SPECIMENOrdering Facility: [facility] Address: [address] [place] [address] Performed By: #### 3 1201-7, 41952-8, AHAV, 5-3, 29370-5 ####[facility] LABCLIA [id number] [place] [address] [place] HCV Ab Ser Qlon 11-13-2024 HCV Ab Ql (S) Negative Normal Negative [facility] Comment on above: Order Comment: Speci men Type: BLOOD SPECIMENOrdering Facility: [facility] Address: [address] [place] [address] Result Comment: The result suggests no evidence of infection with Hepatitis C virus. Should recent infection be suspected, repeat testing may be considered 4-6 weeks after this draw. Performed By: #### 1 6128-1 ####[facility] LABCLIA [id number] [place] [address] [place] HEPATITIS A ANTIBODY, IGGon 11-13-2024 HAV IgG Ql (S) Negative Normal [facility] Comment on above: Order Comment: Speci men Type: BLOOD SPECIMENOrdering Facility: [facility] Address: [address] [place] [address] Result Comment: No s erological evidence of past exposure to hepatitis A virus or hepatitis A vaccination. Should recent infection be suspected, repeat testing is suggested 3-4 weeks after this draw. Performed By: #### 3 1201-7, 63027-6, AHAVG, 5195-3, 26204-5 ####[facility] LABCLIA [id number] [place] [address] [place] Performed By: #### 7 3752-8, AHAVG, STRSER, MUMPSG ####[facility] LABCLIA [id number] [place] [address] [place] HIV 1+2 Ab IA Qlon HIV 1 and 2 Ab IA.rapid Nom (S/P/Bld) Normal [facility] Comment on above: Order Comment: Speci men Type: BLOOD SPECIMENOrdering Facility: [facility] Address: [address] [place] [address] Result Comment: Test not indicated. Performed By: #### 3 1201-7, 51247-7, AHAVG, 5195-3, 71508-8 ####[facility] LABCLIA [id number] [place] [address] [place] HIV 1+2 Ab+HIV1 p24 Ag IA Ql Non-Reactive Normal Nonreactive [facility] Comment on above: Order Comment: Speci men Type: BLOOD SPECIMENOrdering Facility: [facility] Address: [address] [place] [address] Performed By: #### 3 1201-7, 64977-4, AHAVG, 5195-3, 93567-0 ####[facility] LABCLIA [id number] [place] [address] [place] HIV immunoassay testing algorithm interpretation (S/P/Bld) [Interp] Normal [facility] Comment on above: Order Comment: Speci men Type: BLOOD SPECIMENOrdering Facility: [facility] Address: [address] [place] [address] Result Comment: No e vidence of HIV-1 or HIV-2 infection. Should recent infection be suspected, repeat testing may be considered 2-3 weeks after this draw.[place] Rev. Code 3701.243(E): This information has been [...] or diagnoses. Performed By: #### 3 1201-7, 61920-0, [facility]ERVG, 5195-3, 09605-1 ####[facility] LABCLIA [id number] [place] [address] [place] Hepatic function 2000 panelo n 11-13-2024 Albumin [Mass/Vol] 2.8 g/dL Low 3.9-4.9 [facility] Comment on above: Order Comment: Speci men Type: BLOOD SPECIMENOrdering Facility: [facility] Address: [address] [place] [address] Performed By: #### 2 4321-2, 06625-3, 16042-9, 04871-5 ####[facility] LABCLIA [id number] [place] [id number] [place] ALP [Catalytic activity/Vol] 225 U/L High 38-113 [facility] Comment on above: Order Comment: Speci men Type: BLOOD SPECIMENOrdering Facility: [facility] Address: [address] [place] [address] Performed By: #### 2 4321-2, 17438-2, 60931-4, 10494-1 ####[facility] LABCLIA [id number] [place] [address] [place] ALT [Catalytic activity/Vol] 22 U/L Normal 10-54 [facility] Comment on above: Order Comment: Speci men Type: BLOOD SPECIMENOrdering Facility: [facility] Address: [address] [place] [address] Performed By: #### 2 4321-2, 82097-0, 78087-8, 47351-6 ####[facility] LABCLIA [id number] [place] [address] [place] AST [Catalytic activity/Vol] 36 U/L Normal 14-40 [facility] Comment on above: Order Comment: Speci men Type: BLOOD SPECIMENOrdering Facility: [facility] Address: [address] [place] [address] Performed By: #### 2 4321-2, 37119-9, 60862-0, 39503-4 ####[facility] LABCLIA [id number] [place] [id number] [place] Bilirubin [Mass/Vol] 1.8 mg/dL High 0.2-1.3 [facility] Comment on above: Order Comment: Speci men Type: BLOOD SPECIMENOrdering Facility: [facility] Address: [address] [place] [address] Performed By: #### 2 4321-2, 56529-3, 61929-0, 18906-4 ####[facility] LABCLIA [id number] [address] [place] Bilirubin.conjugated [Mass/Vol] 0.9 mg/dL High <0.3 [facility] Comment on above: Order Comment: Speci men Type: BLOOD SPECIMENOrdering Facility: [facility] Address: [address] [place] [address] Performed By: #### 2 4321-2, 02327-5, 74516-4, 17699-4 ####[facility] LABCLIA [id number] [place] [address] [place] Protein [Mass/Vol] 5.2 g/dL Low 6.3-8.0 [facility] Comment on above: Order Comment: Speci men Type: BLOOD SPECIMENOrdering Facility: [facility] Address: [address] [place] [address] Performed By: #### 2 4321-2, 98610-4, 82499-2, 51295-7 ####[facility] LABCLIA [id number] [place] [address] [place] LIVER REC INIT W/Uon 025 ALLOGEN RESULTS TO FOLLOW See Allogen report to follow Normal [facility] Comment on above: Order Comment: Speci men Type: BLOOD SPECIMENOrdering Facility: [facility] Address: [address] [place] [address] Performed By: #### L RIPW ####[facility] [id number] [place] [id number] [place] LPa SerPl-mCncon 11-13-2024 Lipoprotein a [Mass/Vol] mg/dL Normal <30 [facility] Comment on above: Order Comment: Speci men Type: BLOOD SPECIMENOrdering Facility: [facility] Address: [address] [place] [address] Performed By: #### 1 0835-7 ####[facility] LABCLIA [id number] [place] [id number] [place] Lipid 1996 panelon 5 Cholesterol [Mass/Vol] 52 mg/dL Normal <200 [facility] Comment on above: Order Comment: Speci men Type: BLOOD SPECIMENOrdering Facility: [facility] Address: [address] [place] [address] Result Comment: <200 mg/dL, Desirable 200-239 mg/dL, Borderline high>239 mg/dL, High Performed By: #### 2 4321-2, 49956-1, 81199-3, 74908-9 ####[facility] LABCLIA [id number] [address], [facility] Cholesterol in HDL [Mass/Vol] 17 mg/dL Low >39 [facility] Comment on above: Order Comment: Speci men Type: BLOOD SPECIMENOrdering Facility: [facility] Address: [address] [place] [address] Result Comment: 40-5 9 mg/dL, Acceptable>59 mg/dL, High: Negative risk factor for coronary heart disease<40 mg/dL, Low: Positive risk factor for coronary heart disease Performed By: #### 2 4321-2, 00144-2, 81134-5, 93815-0 ####[facility] LABCLIA [id number] [address], [facility]95 [facility] Cholesterol in LDL [Mass/Vol] 26 mg/dL Normal <100 [facility] Comment on above: Order Comment: Speci men Type: BLOOD SPECIMENOrdering Facility: [facility] Address: [address] [place] [address] Result Comment: <100 mg/dL, Optimal 100-129 mg/dL, Near optimal/above optimal 130-159 mg/dL, Borderline high 160-189 mg/dL, High>189 mg/dL, Very highSecondary prevention optimal LDL Cholesterol levels are recommended to be < 70 mg/dL Performed By: #### 2 4321-2, 45750-7, 95294-8, 25483-5 ####[facility] LABCLIA [id number] [address] [address] [place] Cholesterol in LDL/Cholesterol in HDL [Mass ratio] 1.53 {ratio} Normal <2.54 [facility] Comment on above: Order Comment: Ezekiel james Type: BLOOD SPECIMENOrdering Facility: [facility] Address: [facility] [place] [address] Result Comment: Demetrio haines:1. National Cholesterol Education Program ATP III Guideline At-A-Glance Quick Desk Reference: National Heart, Lung, and Blood [place]. National Institutes of Health. 2001: NIH Publication No. 01-3305.2. An International Atherosclerosis Society position paper: global recommendations for the management of dyslipidemia: executive summary, Atherosclerosis. 2014: 232(2):410-413. Performed By: #### 2 4321-2, 18612-0, 73086-0, 35866-1 ####[facility] LABCLIA [id number] [address] [address] [place] Cholesterol in VLDL [Mass/Vol] 9 mg/dL Normal <30 [facility] Comment on above: Order Comment: Ezekiel james Type: BLOOD SPECIMENOrdering Facility: [facility] Address: [address] [place] [address] Performed By: #### 2 4321-2, 99289-9, 40273-7, 93780-5 ####[facility] LABCLIA [id number] [address] [place] Cholesterol non HDL [Mass/Vol] 35 mg/dL Normal <130 [facility] Comment on above: Order Comment: Megganhelder ramirez Type: BLOOD SPECIMENOrdering Facility: [facility] Address: [address] [place] [address] Result Comment: <130 mg/dL, Optimal 130-159 mg/dL, Near optimal/above optimal 160-189 mg/dL, Borderline high 190-219 mg/dL, High>219 mg/dL, Very highSecondary prevention optimal non HDL Cholesterol levels are recommended to be <100 mg/dL Performed By: #### 2 4321-2, 60841-5, 85809-6, 66359-9 ####[facility] LABCLIA [id number] [address] [address] [place] Cholesterol.total/Donna sterol in HDL [Mass ratio] 3.06 {ratio} Normal <5.10 [facility] Comment on above: Order Comment: Speci men Type: BLOOD SPECIMENOrdering Facility: [facility] Address: [address] [place] [address] Performed By: #### 2 4321-2, 95919-2, 12663-9, 85271-9 ####[facility] LABCLIA [id number] [address] [address] [place] FASTING TIME 4 hrs Normal [facility] Comment on above: Order Comment: Speci men Type: BLOOD SPECIMENOrdering Facility: [facility] Address: [address] [place] [address] Performed By: #### 2 4321-2, 34502-4, 42961-4, 66912-6 ####[facility] LABIA [id number] [place] [id number] [place] Triglyceride [Mass/Vol] 45 mg/dL Normal <150 [facility] Comment on above: Order Comment: Speci men Type: BLOOD SPECIMENOrdering Facility: [facility] Address: [address] [place] [address] Result Comment: <150 mg/dL, Normal 150-199 mg/dL, Borderline high 200-499 mg/dL, High>499 mg/dL, Very high Performed By: #### 2 4321-2, 57142-1, 20804-0, 29013-9 ####[facility] LABIA [id number] [place] [id number] [place] MUMPS IGG ABon 11-13-2024 MuV IgG Ql (S) Negative Abnormal Positive [facility] Comment on above: Order Comment: Speci men Type: BLOOD SPECIMENOrdering Facility: [facility] Address: [address] [place] [address] Result Comment: The result suggests no history of Mumps vaccination or exposure to Mumps virus, however, some individuals with past history of Mumps vaccination may test negative using this test. Please correlate with past history of vaccination if applicable. Performed By: #### 7 3752-8, AHAVG, STRSER, MUMPSG ####[facility] LABCLIA [id number] [address] [place] NT-proBNP [facility] Natriuretic peptide.B prohormone N-Terminal [Mass/Vol] 1047 pg/mL High <125 [facility] Comment on above: Order Comment: Speci men Type: BLOOD SPECIMENOrdering Facility: [facility] Address: [address] [place] [address] Performed By: #### 2 4321-2, 24327-0, 72140-4, 64305-5 ####[facility] LABCLIA [id number] [place] [address] [place] NURSING PROGon 11-13-2024 NURSING PROG Normal [facility] NURSING PROG Normal [facility] PHOSPHATIDYLETHANOL (PETH)on 11-13-2024 EER PETH See Note Normal [facility] Comment on above: Order Comment: Speci men Type: BLOOD SPECIMENOrdering Facility: [facility] Address: [address] [place] [address] Result Comment: Auth orized individuals can access the [employer] Enhanced Reportwith an [employer] Connect account using the following link.Your local lab can assist you in obtaining the patientreport if you don't have a Connect account.[email or web address] Performed By: #### P ETH ####[facility] LABORATORIESCLIA [id number] [place] [address] PETH 16:0/18.2 (PLPETH) <10 Normal [facility] Comment on above: Order Comment: Speci men Type: BLOOD SPECIMENOrdering Facility: [facility] Address: [address] [place] [address] Result Comment: Refe rence ranges are not well established. Performed By: #### P ETH ####[facility] LABORATORIESCLIA [id number] [place] [address] PETH 16:0/18:1 (POPETH) <10 Normal [facility] Comment on above: Order Comment: Speci men Type: BLOOD SPECIMENOrdering Facility: [facility] Address: [address] [place] [address] Result Comment: PEth 16:0/18:1 (POPEth)Less than 10 ng/mL............Not detectedLess than 20 ng/mL............Abstinence or light brybpievqvufueafsd61 - 200 ng/mL................Moderate alcohol consumptionGreater than 200 ng/mL........Heavy alcohol consumption or chronicalcohol use(Reference: Alonso Landaverde and Mathew Ha 2018 J. Forensic Sci) Performed By: #### P ETH ####[facility]OR[facility]IESCLIA [id number] [place] [address] PETH INTERPRETATION See Comment Normal [facility] Comment on above: Order Comment: Speci men Type: BLOOD SPECIMENOrdering Facility: [facility] Address: [address] [place] [address] Result Comment: Phos phatidylethanol (PEth) is a [...] was developed and its performance characteristicsdetermined by [facility]. It has not been cleared orapproved by the U.S. Food and Drug Administration. This test wasperformed in a CLIA-certified laboratory and is intended forclinical purposes.Performed By: [facility] [place], [place] [id number] Director: Lizandro Ordonez MD, PhDCLIA Number: [id number] Performed By: #### P ETH ####[facility] SoshIA [id number] [place] [address] PT panel Coag (PPP)on 2024 INR Coag (PPP) [Relative time] 1.9 {INR} High 0.9-1.3 [facility] Comment on above: Order Comment: Speci men Type: BLOOD SPECIMENOrdering Facility: [facility] Address: [address] [place] [address] Result Comment: Sarah min K Antagonist (VKA) Therapeutic Range: INR 2 to 3 (Target INR of 2.5)Note: For patients treated with VKA drugs, such as warfarin, the [employer] 2012 Guideline recommends [...] al. Chest 2012, 141:7S-47SHector RA, et al. JACC 2017, 70: 252-289 Performed By: #### 3 4528-0, 3255-02 ####[facility] LABCLIA [id number] [address] [address] [place] PT Coag (PPP) [Time] 19.9 s High 9.7-13.0 [facility] Comment on above: Order Comment: Speci men Type: BLOOD SPECIMENOrdering Facility: [facility] Address: [address] [place] [address] Performed By: #### 3 4528-0, 3255-02 ####[facility] LABCLIA [id number] [address] [address] [place] Pathology biopsy report Marco Antonio (Tiss)on 11-13-2024 AP DISCLAIMER Normal [facility] Comment on above: Order Comment: Speci men Type: TISSUE SPECIMENOrdering Facility: [facility] Address: [address] [place] [address] Result Comment: Shellie pugh Developed Test (LDT) Disclaimer:Performance characteristics of immunohistochemical, immunofluorescent, and chromogenic in-situ hybridization tests have been determined by the performing laboratory within [facility]'s [facility] Pathology and Laboratory Medicine Department ([facility], [facility], [facility], [facility], [facility], [facility], or [facility]) in a manner consistent with CLIA requirements. [...] Performed By: #### 6 6121-5 ####[facility]ORATORYCLIA [id number] [place] [address] [place] [facility] LABCLIA [id number] [place] [address] [place] CASE REPORT Normal [facility] Comment on above: Order Comment: Speci men Type: TISSUE SPECIMENOrdering Facility: [facility] Address: [address] [place] [address] Result Comment: Surg ical Pathology Report Case: [id number] Provider: Thai Pineda MD Collected: 11/13/2024 09:40 AMOrdering Location: [place] [address] Received: 11/15/2024 03:18 PMPathologist: Axel Berger MDSpecimen: Esophagus, Biopsy, r/o esophageal candidiasis Performed By: #### 6 6121-5 ####[facility] LABORATORYCLIA [id number] [address] LABCLIA [id number] [address] [address] [facility] FINAL DIAGNOSIS Normal [facility] Comment on above: Order Comment: Speci men Type: TISSUE SPECIMENOrdering Facility: [facility] Address: [address] [place] [address] Result Comment: Esop hagus, biopsy:- Squamous mucosal candidiasis.JEL 11/16/2024 at 1034 EDT Performed By: #### 6 6121-5 ####[facility]ATORYCLIA [id number] [address] LABCLIA [id number] [address] FINAL PERFORMING LAB Normal [facility] Comment on above: Order Comment: Speci men Type: TISSUE SPECIMENOrdering Facility: [facility] Address: [address] [place] [address] Result Comment: Diag nostic interpretation performed at: [facility], [address] [facility] [address] CLIA# [id number] Director: Rick Harris MD Performed By: #### 6 6121-5 ####[facility] LABORATORYCLIA [id number] [place] [address] [facility] LABCLIA [id number] [address] [address] [place] GROSS DESCRIPTION Normal [facility] Comment on above: Order Comment: Speci men Type: TISSUE SPECIMENOrdering Facility: [facility] Address: [address] [place] [address] Result Comment: Jann iglesias, BiopsyReceived in formalin are multiple pieces of espitia, soft tissue aggregating to 0.9 x 0.2 x 0.2 cm. Totally submitted in one cassette.BC November 15, 2024 4:50 PMGross examination performed at [facility], [address] [place] [address] Performed By: #### 6 6121-5 ####[facility]ORATORYCLIA [id number] [address] OF [facility] LABCLIA [id number] [place] [address] [place] Phosphate SerPl-mCncon 11-13 Phosphate [Mass/Vol] 1.5 mg/dL Low 2.7-4.8 [facility] Comment on above: Order Comment: Speci men Type: BLOOD SPECIMENOrdering Facility: [facility] Address: [address] [place] [address] Performed By: #### 2 777-1, 3016-3 ####[facility] LABCLIA [id number] [address] [place] RUBEOLA (MEASLES)IGGon 11-13 MEASLES IGG AB, QUAL Positive Normal Positive [facility] Comment on above: Order Comment: Speci men Type: BLOOD SPECIMENOrdering Facility: [facility] Address: [address] [place] [address] Result Comment: The result suggests recent or past exposure to Measles virus or Measles vaccination. The current test does not detect neutralizing antibodies. Positive result may also be seen due to presence of passively-transferred antibodies. Please correlate with patient's history. Performed By: #### 7 852-7, MEASLG, VZVG2, 1989-3 ####[facility] LABCLIA [id number] [place] [id number] [place] Reagin and Treponema pallidu m IgG and IgM [Interp]on 11-13-2024 T. pallidum IgG+IgM IA Ql (S) Non-Reactive Normal Nonreactive [facility] Comment on above: Order Comment: Speci men Type: BLOOD SPECIMENOrdering Facility: [facility] Address: [address] [place] [address] Performed By: #### 7 3752-8, SHMUEL SORENSEN MUMPSG ####[facility] LABCLIA [id number] [place] [address] [place] Reagin+T pallidum IgG+IgM Se rPl-Impon 11-13-2024 Reagin and Treponema pallidum IgG and IgM [Interp] Cannot exclude recent Treponemal infection if specimen collected within 7-10 days after appearance of suspect lesions or 2-3 weeks after an exposure. Clinical correlation is required. Normal [facility] Comment on above: Order Comment: Speci men Type: BLOOD SPECIMENOrdering Facility: [facility] Address: [address] [place] [address] Performed By: #### 7 3752-8, SHMUEL SORENSEN MUMPSLoki ####[facility] LABCLIA [id number] [place] [address] [place] STAPHYLOCOCCUS AUREUS AND MR SA SCREEN, PCR, NASALon 11-13-2024 S. aureus and MRSA panel ANANTH+probe (Nose) Not detected Normal Not Detected [facility] Comment on above: Order Comment: Speci men Type: SWABOrdering Facility: [facility] Address: [address] [place] [address] Performed By: #### S APCR ####[facility] LABCLIA [id number] [place] [address] [place] STRONGYLOIDES IGG BLon 11-13 STRONGYLOIDES IGG QUALITATIVE Negative Normal Negative [facility] Comment on above: Order Comment: Speci men Type: BLOOD SPECIMENOrdering Facility: [facility] Address: [address] [place] [address] Performed By: #### S TRSER ####[facility] LABCLIA [id number] [address] Performed By: #### 7 3752-8, AHAVG, STRSER, MUMPSG ####[facility] LABCLIA [id number] [address] T. gondii IgG Qn (S)on 11-13 TOXO IGG QUAL Negative Normal Negative [facility] Comment on above: Order Comment: Spechelder ramirez Type: BLOOD SPECIMENOrdering Facility: [facility] Address: [address] [place] [address] Result Comment: No s erological evidence of past exposure to Toxoplasma gondii. Cannot exclude recent infection if the specimen collected within 3-4 weeks after infection. Performed By: #### 8 039-0, 7885-7 ####[facility] LABIA [id number] [address] THERAPY NTon 11-13-2024 THERAPY NT Normal [facility] TOXICOLOGY PANEL BLDon 11-13 Acetaminophen [Mass/Vol] ug/mL Low 10-30 [facility] Comment on above: Order Comment: Ezekiel ramirez Type: BLOOD SPECIMENOrdering Facility: [facility] Address: [address] [place] [address] Result Comment: Toxi c > 150 ug/mL 4 hours post ingestionThe Viviana Figueroa nomogram can be used to estimate the probability of hepatotoxicity via the relationship of plasma acetaminophen concentration to the post ingestion interval. (Skylar. Pediatrics. 1975. 55:871 to 876 and Viviana et al. Arch Cane Packer Med. 1981. 141:380 to 385).Reference ranges and high/low indicator flags are provided as general guidelines only. The treating physician must determine appropriate target levels/dosing based on the specific clinical situation. Performed By: #### T OXP ####[facility] LABCLIA [id number] [place] [address] [place] Ethanol [Mass/Vol] mg/dL Normal <11 [facility] Comment on above: Order Comment: Speci men Type: BLOOD SPECIMENOrdering Facility: [facility] Address: [address] [place] [address] Performed By: #### T OXP ####[facility] LABCLIA [id number] [place] [address] [place] Salicylates [Mass/Vol] mg/dL Low 3.0-30.0 [facility] Comment on above: Order Comment: Speci men Type: BLOOD SPECIMENOrdering Facility: [facility] Address: [address] [place] [address] Result Comment: The therapeutic range varies and has been reported to be 3.0 to 10.0 mg/dL for anti pyretic/analgesic conditions and 15.0 to 30.0 mg/dL for anti inflammatory/rheumatic fever conditions. Ranges published by the instrument gate guard.Reference ranges and high/low indicator flags are provided as general guidelines only. The treating physician must determine appropriate target levels/dosing based on the specific clinical situation. Performed By: #### T OXP ####[facility] LABCLIA [id number] [place] [address] [place] TSH SerPl-aCncon 11-13-2024 TSH Qn 0.633 m[IU]/L Normal 0.270-4.200 [facility] Comment on above: Order Comment: Speci men Type: BLOOD SPECIMENOrdering Facility: [facility] Address: [address] [place] [address] Performed By: #### 2 777-1, 3016-3 ####[facility] LABCLIA [id number] [place] [address] [place] Upper GI endoscopyon 025 Upper GI endoscopy Normal [facility] VARICELLA ZOSTER IGGon 11-13 VARICELLA ZOSTER IGG, QUAL Positive Normal Positive [facility] Comment on above: Order Comment: Speci men Type: BLOOD SPECIMENOrdering Facility: [facility] Address: [address] [place] [address] Result Comment: The result suggests recent or past exposure to Varicella-Zoster virus or chickenpox vaccination or zoster vaccination. Positive result may also be seen due to presence of passively-transferred antibodies. Please correlate with patient's history. Performed By: #### 7 852-7, MEASLG, VZVG2, 1988- ####[facility] LABCLIA [id number] [place] [address] [place] Vit A SerPl-mCncon Retinol [Mass/Vol] 0.03 mg/L Low 0.30-1.20 [facility] Comment on above: Order Comment: [facility] Type: BLOOD SPECIMENOrdering Facility: [facility] Address: [address] [place] [address] Result Comment: This test was developed, and its performance characteristics determined by the [facility] Department of Pathology and Laboratory Medicine. It has not been cleared or approved by the FDA. The [facility] of Pathology and Laboratory Medicine is regulated under CLIA as qualified to perform high-complexity testing. This test is used for clinical purposes. It should not be regarded as investigational or for research. Performed By: #### 2 923-1, 1823-4 ####[facility] LABCLIA [id number] [address] [place] Zinc SerPl-mCncon 11-13-2024 Zinc [Mass/Vol] 60 ug/dL Normal 60-120 [facility] Comment on above: Order Comment: [facility] Type: BLOOD SPECIMENOrdering Facility: [facility] Address: [address] [place] [address] Result Comment: This test was developed, and its performance characteristics determined by the [facility] Department of Pathology and Laboratory Medicine. It has not been cleared or approved by the FDA. The [facility] Department of Pathology and Laboratory Medicine is regulated under CLIA as qualified to perform high-complexity testing. This test is used for clinical purposes. It should not be regarded as investigational or for research. Performed By: #### 5 763-8 ####[facility] LABIA [id number] [place] [address] [place] AFP SerPl-mCncon 11-12-2024 AFP [Mass/Vol] 2.25 ng/mL Normal <9.00 [facility] Comment on above: Order Comment: Speci men Type: BLOOD SPECIMENOrdering Facility: [facility] Address: [address] [place] [address] Result Comment: The Alpha-Fetoprotein test was performed using the [employer] DxI immunoenzymatic assay. Results obtained with different assay methods or kits cannot be used interchangeably. Performed By: #### 1 834-1 ####[facility] [id number] [address] [place] ARTERIAL BLOOD GASESon 11-12 Base deficit (BldA) [Moles/Vol] -8 mmol/L Low -2-0 [facility] Comment on above: Order Comment: Speci men Type: ARTERIAL BLOOD SPECIMENOrdering Facility: [facility] Address: [address] [place] [address] Performed By: #### A LLBG ####[facility] [id number] [place] [address] [place] Body temperature 98.6 [degF] Normal [facility] Comment on above: Order Comment: Speci men Type: ARTERIAL BLOOD SPECIMENOrdering Facility: [facility] Address: [address] [place] [address] Performed By: #### A LLBG ####[facility] [id number] [place] [address] [place] Calcium.ionized (Bld) [Mass/Vol] 1.20 mmol/L Normal 1.08-1.30 [facility] Comment on above: Order Comment: Speci men Type: ARTERIAL BLOOD SPECIMENOrdering Facility: [facility] Address: [address] [place] [address] Performed By: #### A LLBG ####[facility] LABCLIA [id number] [place] [address] [place] Calcium.ionized adjusted to pH 7.4 (BldA) [Moles/Vol] 1.24 mmol/L Normal 1.08-1.30 [facility] Comment on above: Order Comment: Speci men Type: ARTERIAL BLOOD SPECIMENOrdering Facility: [facility] Address: [address] [place] [address] Performed By: #### A LLBG ####[facility] LABIA [id number] [place] [address] [place] Carboxyhemoglobin (BldA) [Mass fraction] 2.0 % Normal 0.0-2.0 [facility] Comment on above: Order Comment: Speci men Type: ARTERIAL BLOOD SPECIMENOrdering Facility: [facility] Address: [address] [place] [address] Result Comment: Carb oxyhemoglobin Reference Range for Smokers: 2.0-8.0% Performed By: #### A LLBG ####[facility] LABIA [id number] [place] [address] [place] CO2 (Bld) [Partial pressure] 21 mm Hg Low 36-46 [facility] Comment on above: Order Comment: Speci men Type: ARTERIAL BLOOD SPECIMENOrdering Facility: [facility] Address: [address] [place] [address] Performed By: #### A LLBG ####[facility] LABIA [id number] [place] [address] [place] Glucose [Mass/Vol] 276 mg/dL High 60-105 [facility] Comment on above: Order Comment: Speci men Type: ARTERIAL BLOOD SPECIMENOrdering Facility: [facility] Address: [address] [place] [address] Performed By: #### A LLBG ####[facility] LABCLIA [id number] [place] [address] [place] HCO3 (Bld) [Moles/Vol] 15 mmol/L Low 22-26 [facility] Comment on above: Order Comment: Speci men Type: ARTERIAL BLOOD SPECIMENOrdering Facility: [facility] Address: [address] [place] [address] Performed By: #### A LLBG ####[facility] LABCLIA [id number] [place] [address] [place] Hematocrit (Bld) [Volume fraction] 22.4 % Low 39.0-51.0 [facility] Comment on above: Order Comment: Speci men Type: ARTERIAL BLOOD SPECIMENOrdering Facility: [facility] Address: [address] [place] [address] Performed By: #### A LLBG ####[facility] LABCLIA [id number] [place] [address] [place] Hemoglobin (Bld) [Mass/Vol] 7.2 g/dL Low 13.0-17.0 [facility] Comment on above: Order Comment: Speci men Type: ARTERIAL BLOOD SPECIMENOrdering Facility: [facility] Address: [address] [place] [address] Performed By: #### A LLBG ####[facility] LABCLIA [id number] [place] [address] [place] Lactate [Moles/Vol] 2.9 mmol/L High 0.5-2.2 [facility] Comment on above: Order Comment: Speci men Type: ARTERIAL BLOOD SPECIMENOrdering Facility: [facility] Address: [address] [place] [address] Performed By: #### A LLBG ####[facility] LABCLIA [id number] [place] [address] [place] Methemoglobin (Bld) [Mass fraction] 1.0 % Normal 0.0-1.5 [facility] Comment on above: Order Comment: Speci men Type: ARTERIAL BLOOD SPECIMENOrdering Facility: [facility] Address: [address] [place] [address] Performed By: #### A LLBG ####[facility] LABCLIA [id number] [address] [place] [address] [place] O2 THERAPY RA=Room Air Normal [facility] Comment on above: Order Comment: Speci men Type: ARTERIAL BLOOD SPECIMENOrdering Facility: [facility] Address: [address] [place] [address] Performed By: #### A LLBG ####[facility] LABCLIA [id number] [address] [address] [place] Oxygen (Bld) [Partial pressure] 94 mm Hg Normal 85-95 [facility] Comment on above: Order Comment: Speci men Type: ARTERIAL BLOOD SPECIMENOrdering Facility: [facility] Address: [address] [place] [address] Performed By: #### A LLBG ####[facility] LABCLIA [id number] [place] [id number] [place] Oxyhemoglobin (BldA) [Mass fraction] 96 % Normal 95-98 [facility] Comment on above: Order Comment: Speci men Type: ARTERIAL BLOOD SPECIMENOrdering Facility: [facility] Address: [address] [place] [address] Performed By: #### A LLBG ####[facility] LABCLIA [id number] [address] [place] [address] [place] pH (Bld) 7.46 [pH] High 7.35-7.45 [facility] Comment on above: Order Comment: Speci men Type: ARTERIAL BLOOD SPECIMENOrdering Facility: [facility] Address: [address] [place], [place] [id number] Performed By: #### A LLBG ####[facility] LABCLIA [id number] [address] [address] [place] PO2 / FIO2 RATIO 448 mmHg Normal >300 [facility] Comment on above: Order Comment: Speci men Type: ARTERIAL BLOOD SPECIMENOrdering Facility: [facility] Address: [address] [place] [address] Performed By: #### A LLBG ####[facility] LABCLIA [id number] [place] [address] [place] Potassium [Moles/Vol] 3.9 mmol/L Normal 3.5-5.0 [facility] Comment on above: Order Comment: Speci men Type: ARTERIAL BLOOD SPECIMENOrdering Facility: [facility] Address: [address] [place] [address] Performed By: #### A LLBG ####[facility] LABCLIA [id number] [place] [address] [place] Sodium [Moles/Vol] 124 mmol/L Low 136-144 [facility] Comment on above: Order Comment: Speci men Type: ARTERIAL BLOOD SPECIMENOrdering Facility: [facility] Address: [address] [place] [address] Performed By: #### A LLBG ####[facility] LABCLIA [id number] [place] [id number] [place] Bacteria Ur Culton Bacteria identified Cx Nom (U) Normal [facility] Comment on above: Performed By: #### 6 30-4, 97860-7 ####[facility] LABCLIA [id number] [place] [id number] [place] Basic metabolic 2000 panelon 11-12-2024 Anion gap [Moles/Vol] 11 mmol/L Normal 8-15 [facility] Comment on above: Order Comment: Speci men Type: BLOOD SPECIMENOrdering Facility: [facility] Address: [address] [place] [address] Performed By: #### 2 4321-2, 84611-7, 2776-08 ####[facility] LABCLIA [id number] [address] [address] [place] Calcium [Mass/Vol] 9.2 mg/dL Normal 8.5-10.2 [facility] Comment on above: Order Comment: Speci men Type: BLOOD SPECIMENOrdering Facility: [facility] Address: [address] [place] [address] Performed By: #### 2 4321-2, 16936-5, 2776-08 ####[facility] LABCLIA [id number] [address] [address] [place] Chloride [Moles/Vol] 99 mmol/L Normal 98-107 [facility] Comment on above: Order Comment: Speci men Type: BLOOD SPECIMENOrdering Facility: [facility] Address: [address] [place] [address] Performed By: #### 2 4321-2, 90177-8, 2776-08 ####[facility] LABCLIA [id number] [place] [id number] [place] CO2 [Moles/Vol] 14 mmol/L Low 22-30 [facility] Comment on above: Order Comment: Speci men Type: BLOOD SPECIMENOrdering Facility: [facility] Address: [address] [place], [place] [address] Performed By: #### 2 4321-2, 47789-9, 2776-08 ####[facility] LABCLIA [id number] [address] [address] [place] Creatinine [Mass/Vol] 1.22 mg/dL Normal 0.73-1.22 [facility] Comment on above: Order Comment: Speci men Type: BLOOD SPECIMENOrdering Facility: [facility] Address: [address] [place], [place] [address] Performed By: #### 2 4321-2, 54483-6, 2776-08 ####[facility] LABCLIA [id number] [place] [address] [place] Creatinine and Glomerular filtration rate.predicted panel (S/P/Bld) 69 mL/min/1.73m??? Normal >=60 [facility] Comment on above: Order Comment: Ezekiel ramirez Type: BLOOD SPECIMENOrdering Facility: [facility] Address: [address] [place] [address] Result Comment: Patric mated Glomerular Filtration Rate [...] actual GFR. Performed By: #### 2 4321-2, 11964-8, 2777-1 ####[facility] [id number] [place] [address] [place] Glucose [Mass/Vol] 304 mg/dL High 74-99 [facility] Comment on above: Order Comment: Ezekiel ramirez Type: BLOOD SPECIMENOrdering Facility: [facility] Address: [address] [place] [address] Result Comment: The [place] [employer] (ADA) provides guidance for cutoff [...] Standards of Medical Care in Diabetes 2016, [place] [employer]. Diabetes Care. 2016.39(Suppl 1). Performed By: #### 2 4321-2, 68044-6, 2777-1 ####[facility] [id number] [place] [address] [place] Potassium [Moles/Vol] 4.3 mmol/L Normal 3.7-5.1 [facility] Comment on above: Order Comment: Speci men Type: BLOOD SPECIMENOrdering Facility: [facility] Address: [address] [place] [address] Performed By: #### 2 4321-2, 67372-9, 2777-1 ####[facility] LABCLIA [id number] [place] [address] [place] Sodium [Moles/Vol] 124 mmol/L Low 136-144 [facility] Comment on above: Order Comment: Speci men Type: BLOOD SPECIMENOrdering Facility: [facility] Address: [address] [place] [address] Performed By: #### 2 4321-2, 83328-7, 2777-1 ####[facility] LABCLIA [id number] [place] [address] [place] Urea nitrogen [Mass/Vol] 22 mg/dL Normal 9-24 [facility] Comment on above: Order Comment: Speci men Type: BLOOD SPECIMENOrdering Facility: [facility] Address: [address] [place] [address] Performed By: #### 2 4321-2, 93754-8, 2777-1 ####[facility] LABCLIA [id number] [place] [address] [place] CASE MGT INIT ASSESon 2024 CASE MGT INIT ASSES Normal [facility] CBC panel Auto (Bld)on 11-12 Erythrocyte distribution width (RBC) [Ratio] 16.9 % High 11.5-15.0 [facility] Comment on above: Order Comment: Speci men Type: BLOOD SPECIMENOrdering Facility: [facility] Address: [address] [place] [address] Performed By: #### 5 8410-2 ####[facility] LABCLIA [id number] [place] [address] [place] Hematocrit (Bld) [Volume fraction] 21.7 % Low 39.0-51.0 [facility] Comment on above: Order Comment: Speci men Type: BLOOD SPECIMENOrdering Facility: [facility] Address: [address] [place] [address] Performed By: #### 5 8410-2 ####[facility] [id number] [place] [address] [place] Hemoglobin (Bld) [Mass/Vol] 7.5 g/dL Low 13.0-17.0 [facility] Comment on above: Order Comment: Speci men Type: BLOOD SPECIMENOrdering Facility: [facility] Address: [address] [place] [address] Performed By: #### 5 8410-2 ####[facility] [id number] [place] [address] [place] MCH (RBC) [Entitic mass] 31.5 pg Normal 26.0-34.0 [facility] Comment on above: Order Comment: Speci men Type: BLOOD SPECIMENOrdering Facility: [facility] Address: [address] [place] [address] Performed By: #### 5 8410-2 ####[facility] [id number] [place] [address] [place] MCHC (RBC) [Mass/Vol] 34.6 g/dL Normal 30.5-36.0 [facility] Comment on above: Order Comment: Speci men Type: BLOOD SPECIMENOrdering Facility: [facility] Address: [address] [place] [address] Performed By: #### 5 8410-2 ####[facility] [id number] [place] [address] [place] MCV (RBC) [Entitic vol] 91.2 fL Normal 80.0-100.0 [facility] Comment on above: Order Comment: Speci men Type: BLOOD SPECIMENOrdering Facility: [facility] Address: [address] [place] [address] Performed By: #### 5 8410-2 ####[facility] LABIA [id number] [place] [address] [place] Nucleated RBC (Bld) [#/Vol] 10*3/uL Normal <0.01 [facility] Comment on above: Order Comment: Speci men Type: BLOOD SPECIMENOrdering Facility: [facility] Address: [address] [place] [address] Performed By: #### 5 8410-2 ####[facility] LABIA [id number] [place] [address] [place] Platelet mean volume (Bld) [Entitic vol] 10.8 fL Normal 9.0-12.7 [facility] Comment on above: Order Comment: Speci men Type: BLOOD SPECIMENOrdering Facility: [facility] Address: [address] [place] [address] Performed By: #### 5 8410-2 ####[facility] [id number] [place] [address] [place] Platelets (Bld) [#/Vol] 31 10*3/uL Low 150-400 [facility] Comment on above: Order Comment: Speci men Type: BLOOD SPECIMENOrdering Facility: [facility] Address: [address] [place] [address] Result Comment: Resu lts checked and verified.No clot detected. Performed By: #### 5 8410-2 ####[facility] LABIA [id number] [place] [address] [place] RBC (Bld) [#/Vol] 2.38 10*6/uL Low 4.20-6.00 [facility] Comment on above: Order Comment: Speci men Type: BLOOD SPECIMENOrdering Facility: [facility] Address: [address] [place] [address] Performed By: #### 5 8410-2 ####[facility] LABIA [id number] [place] [address] [place] WBC (Bld) [#/Vol] 6.35 10*3/uL Normal 3.70-11.00 [facility] Comment on above: Order Comment: Speci men Type: BLOOD SPECIMENOrdering Facility: [facility] Address: [address] [place] [address] Performed By: #### 5 8410-2 ####[facility] LABIA [id number] [place] [address] [place] Erythrocyte distribution width (RBC) [Ratio] 17.3 % High 11.5-15.0 [facility] Comment on above: Order Comment: Speci men Type: BLOOD SPECIMENOrdering Facility: [facility] Address: [address] [place] [address] Performed By: #### 5 8410-2 ####[facility] LABIA [id number] [place] [address] [place] Hematocrit (Bld) [Volume fraction] 22.9 % Low 39.0-51.0 [facility] Comment on above: Order Comment: Speci men Type: BLOOD SPECIMENOrdering Facility: [facility] Address: [address] [place] [address] Performed By: #### 5 8410-2 ####[facility] LABIA [id number] [place] [address] [place] Hemoglobin (Bld) [Mass/Vol] 7.9 g/dL Low 13.0-17.0 [facility] Comment on above: Order Comment: Speci men Type: BLOOD SPECIMENOrdering Facility: [facility] Address: [address] [place] [address] Performed By: #### 5 8410-2 ####[facility] LABIA [id number] [place] [address] [place] MCH (RBC) [Entitic mass] 31.5 pg Normal 26.0-34.0 [facility] Comment on above: Order Comment: Speci men Type: BLOOD SPECIMENOrdering Facility: [facility] Address: [address] [place] [address] Performed By: #### 5 8410-2 ####[facility] LABIA [id number] [place] [address] [place] MCHC (RBC) [Mass/Vol] 34.5 g/dL Normal 30.5-36.0 [facility] Comment on above: Order Comment: Speci men Type: BLOOD SPECIMENOrdering Facility: [facility] Address: [address] [place] [address] Performed By: #### 5 8410-2 ####[facility] [id number] [address] [place] MCV (RBC) [Entitic vol] 91.2 fL Normal 80.0-100.0 [facility] Comment on above: Order Comment: Speci men Type: BLOOD SPECIMENOrdering Facility: [facility] Address: [address] [place] [address] Performed By: #### 5 8410-2 ####[facility] [id number] [address] [place] Nucleated RBC (Bld) [#/Vol] 10*3/uL Normal <0.01 [facility] Comment on above: Order Comment: Speci men Type: BLOOD SPECIMENOrdering Facility: [facility] Address: [address] [place] [address] Performed By: #### 5 8410-2 ####[facility] [id number] [place] [address] [place] Platelet mean volume (Bld) [Entitic vol] 11.6 fL Normal 9.0-12.7 [facility] Comment on above: Order Comment: Speci men Type: BLOOD SPECIMENOrdering Facility: [facility] Address: [address] [place] [address] Performed By: #### 5 8410-2 ####[facility] LABCLIA [id number] [place] [address] [place] Platelets (Bld) [#/Vol] 33 10*3/uL Low 150-400 [facility] Comment on above: Order Comment: Speci men Type: BLOOD SPECIMENOrdering Facility: [facility] Address: [address] [place] [address] Result Comment: Resu lts checked and verified.No clot detected. Performed By: #### 5 8410-2 ####[facility] LABIA [id number] [place] [address] [place] RBC (Bld) [#/Vol] 2.51 10*6/uL Low 4.20-6.00 [facility] Comment on above: Order Comment: Speci men Type: BLOOD SPECIMENOrdering Facility: [facility] Address: [address] [place] [address] Performed By: #### 5 8410-2 ####[facility] LABIA [id number] [place] [address] [place] WBC (Bld) [#/Vol] 7.27 10*3/uL Normal 3.70-11.00 [facility] Comment on above: Order Comment: Speci men Type: BLOOD SPECIMENOrdering Facility: [facility] Address: [address] [place] [address] Performed By: #### 5 8410-2 ####[facility] LABCLIA [id number] [place] [id number] [place] CITRATED PLATELET COUNTon CITRATED PLATELET COUNT (WAM) 33 k/uL Low 150-400 [facility] Comment on above: Order Comment: Speci men Type: BLOOD SPECIMENOrdering Facility: [facility] Address: [address] [place] [address] Result Comment: Plat elet count confirmed by manual review of peripheral blood smear. No clot detected. Performed By: #### C ITPLT ####[facility] LABCLIA [id number] [place] [address] [place] CNCNPATEDon 11-12-2024 CNCNPATED Normal [facility] CNPNon 11-12-2024 CNPN Normal [facility] CONFIRM BLOOD TYPEon 025 ABO O Normal [facility] Comment on above: Order Comment: Speci men Type: BLOOD SPECIMENOrdering Facility: [facility] Address: [address] [place] [address] Performed By: #### C ONABO ####[facility] BLOOD BANKCLIA [id number] [place] [address] [place] Rh Nom (Bld) Positive Normal [facility] Comment on above: Order Comment: Speci men Type: BLOOD SPECIMENOrdering Facility: [facility] Address: [address] [place] [address] Performed By: #### C ONABO ####[facility] BLOOD BANKCLIA [id number] [place] [address] [place] CONSULTon 11-12-2024 CONSULT Normal [facility] CONSULT Normal [facility] CONSULT Normal [facility] CONSULT Normal [facility] CONSULT Normal [facility] CONSULT Normal [facility] CT CHEST WO IVCONon 11-13-19 CT CHEST WO IVCON Normal [facility] D dimer FEU PPP-mCncon 11-12 Fibrin D-dimer FEU (PPP) [Mass/Vol] 3850 ng/mL FEU High <500 [facility] Comment on above: Order Comment: Speci men Type: BLOOD SPECIMENOrdering Facility: [facility] Address: [address] [place], [place] [address] Performed By: #### 4 8065-7 ####[facility] LABCLIA [id number] [address], [place] [address] [place] ECHO WITH AGITATED SALINE CO NTRASTon 11-12-2024 ECHO WITH AGITATED SALINE CONTRAST Normal [facility] Fibrin D-dimer FEU (PPP) [Ma ss/Vol]on 11-12-2024 D DIMER AGE-RELATED CUTOFF 580 ng/mL FEU Normal [facility] Comment on above: Order Comment: Speci men Type: BLOOD SPECIMENOrdering Facility: [facility] Address: [address] [place] [address] Performed By: #### 4 8065-7 ####[facility] LABCLIA [id number] [address], [place] [address] [place] Hepatic function 2000 panelo n 11-12-2024 Albumin [Mass/Vol] 3.0 g/dL Low 3.9-4.9 [facility] Comment on above: Order Comment: Speci men Type: BLOOD SPECIMENOrdering Facility: [facility] Address: [address] [place] [address] Performed By: #### 2 4321-2, 50998-5, 2777-1 ####[facility] LABCLIA [id number] [place] [id number] [place] ALP [Catalytic activity/Vol] 252 U/L High 38-113 [facility] Comment on above: Order Comment: Speci men Type: BLOOD SPECIMENOrdering Facility: [facility] Address: [address] [place] [address] Performed By: #### 2 4321-2, 11633-1, 2777-1 ####[facility] LABCLIA [id number] [place] [id number] [place] ALT [Catalytic activity/Vol] 24 U/L Normal 10-54 [facility] Comment on above: Order Comment: Speci men Type: BLOOD SPECIMENOrdering Facility: [facility] Address: [address] [place] [address] Performed By: #### 2 4321-2, 37018-8, 27702-01 ####[facility] LABCLIA [id number] [place] [address] [place] AST [Catalytic activity/Vol] 41 U/L High 14-40 [facility] Comment on above: Order Comment: Speci men Type: BLOOD SPECIMENOrdering Facility: [facility] Address: [address] [place] [address] Performed By: #### 2 4321-2, 13692-6, 27702-01 ####[facility] LABIA [id number] [place] [address] [place] Bilirubin [Mass/Vol] 1.8 mg/dL High 0.2-1.3 [facility] Comment on above: Order Comment: Speci men Type: BLOOD SPECIMENOrdering Facility: [facility] Address: [address] [place] [address] Performed By: #### 2 4321-2, 43036-7, 2776-08 ####[facility] LABIA [id number] [place] [address] [place] Bilirubin.conjugated [Mass/Vol] 0.9 mg/dL High <0.3 [facility] Comment on above: Order Comment: Speci men Type: BLOOD SPECIMENOrdering Facility: [facility] Address: [address] [place] [address] Result Comment: Resu lts may be falsely decreased due to interference from hemolysis. Suggest reorder as clinically indicated. Performed By: #### 2 4321-2, 11487-2, 27702-01 ####[facility] LABIA [id number] [place] [id number] [place] Protein [Mass/Vol] 5.5 g/dL Low 6.3-8.0 [facility] Comment on above: Order Comment: Speci men Type: BLOOD SPECIMENOrdering Facility: [facility] Address: [address] [place] [address] Performed By: #### 2 4321-2, 05403-5, 2777-1 ####[facility] LABCLIA [id number] [place] [id number] [place] MEDICAL EMERon 11-12-2024 MEDICAL KRISTINA Normal [facility] NURSING PROGon 11-12-2024 NURSING PROG Normal [facility] NURSING PROG Normal [facility] NURSING PROG Normal [facility] NURSING PROG Normal [facility] NUTRITIONon 11-12-2024 NUTRITION Normal [facility] PTT, ANTICOAGULANT THERAPYon 11-12-2024 aPTT Coag (PPP) [Time] 62.6 s High 23.0-32.4 [facility] Comment on above: Order Comment: Speci men Type: BLOOD SPECIMENOrdering Facility: [facility] Address: [address] [place] [address] Performed By: #### P TTAC ####[facility] LABIA [id number] [place] [id number] [place] Phosphate SerPl-mCncon 11-12 Phosphate [Mass/Vol] 2.3 mg/dL Low 2.7-4.8 [facility] Comment on above: Order Comment: Speci men Type: BLOOD SPECIMENOrdering Facility: [facility] Address: [address] [place] [address] Performed By: #### 2 4321-2, 72572-9, 2777-1 ####[facility] LABIA [id number] [place] [id number] [place] SOCIAL WORKon 11-12-2024 SOCIAL WORK Normal [facility] THERAPY NTon 11-12-2024 THERAPY NT Normal [facility] THERAPY NT Normal [facility] THROMBOGRAPH PANELon 025 Clot angle TEG (Bld) [Angle] 32.8 degrees Low 47.0-74.0 [facility] Comment on above: Order Comment: Speci men Type: BLOOD SPECIMENOrdering Facility: [facility] Address: [address] [place] [address] Performed By: #### T EGPNP ####[facility] LABIA [id number] [place] [address] [place] Clot Lysis 30 Min post maximum clot amplitude TEG (Bld) [Length fraction] 0.0 % Normal 0.0-8.0 [facility] Comment on above: Order Comment: Speci men Type: BLOOD SPECIMENOrdering Facility: [facility] Address: [address] [place] [address] Performed By: #### T EGPNP ####[facility] [id number] [place] [address] [place] Clotting time TEG (Bld) 5.0 minutes Normal 4.0-10.0 [facility] Comment on above: Order Comment: Speci men Type: BLOOD SPECIMENOrdering Facility: [facility] Address: [address] [place] [address] Performed By: #### T EGPNP ####[facility] [id number] [place] [address] [place] Coagulation index TEG Qn (Bld) -8.4 Low -4.6-3.2 [facility] Comment on above: Order Comment: Speci men Type: BLOOD SPECIMENOrdering Facility: [facility] Address: [address] [place] [address] Result Comment: This test was developed, and its performance characteristics determined by the [facility] Department of Pathology and Laboratory Medicine. It has not been cleared or approved by the FDA. The [facility] Department of Pathology and Laboratory Medicine is regulated under CLIA as qualified to perform high-complexity testing. This test is used for clinical purposes. It should not be regarded as investigational or for research. Performed By: #### T EGPNP ####[facility] LABIA [id number] [address] [place] Maximum clot firmness TEG (Bld) [Length] 28.5 mm Low 51.0-75.0 [facility] Comment on above: Order Comment: Speci men Type: BLOOD SPECIMENOrdering Facility: [facility] Address: [address] [place] [address] Performed By: #### T EGPNP ####[facility] LABCLIA [id number] [address] [place] Thromboelastography after addtion of heparinase panel (Bld) Normal [facility] Comment on above: Order Comment: Speci men Type: BLOOD SPECIMENOrdering Facility: [facility] Address: [address] [place] [address] Result Comment: A th romboelastograph (TEG) study [...] timely manner. Performed By: #### T EGPNP ####[facility] LABCLIA [id number] [place] [id number] [place] TOXICOLOGY SCREEN, ROUTINE U RINEon 11-12-2024 Amphetamines Confirm (U) [Mass/Vol] Negative Normal Negative [facility] Comment on above: Order Comment: Speci men Type: URINE SPECIMENOrdering Facility: [facility] Address: [address] [place] [address] Result Comment: Cuto ff threshold at 1000 ng/mL. Performed By: #### U TOX2 ####[facility] LABCLIA [id number] [place] [address] [place] BARBITURATES, URINE Negative Normal Negative [facility] Comment on above: Order Comment: Speci men Type: URINE SPECIMENOrdering Facility: [facility] Address: [address] [place] [address] Result Comment: Cuto ff threshold at 200 ng/mL. Performed By: #### U TOX2 ####[facility] LABCLIA [id number] [place] [address] [place] BENZODIAZEPINES, UR Negative Normal Negative [facility] Comment on above: Order Comment: Speci men Type: URINE SPECIMENOrdering Facility: [facility] Address: [address] [place] [address] Result Comment: Cuto ff threshold at 200 ng/mL. Performed By: #### U TOX2 ####[facility] LABCLIA [id number] [place] [address] [place] Cannabinoids Screen Ql (U) Negative Normal Negative [facility] Comment on above: Order Comment: Speci men Type: URINE SPECIMENOrdering Facility: [facility] Address: [address] [place] [address] Result Comment: Cuto ff threshold at 50 ng/mL. Performed By: #### U TOX2 ####[facility] LABCLIA [id number] [place] [address] [place] Cocaine Ql (U) Negative Normal Negative [facility] Comment on above: Order Comment: Speci men Type: URINE SPECIMENOrdering Facility: [facility] Address: [address] [place] [address] Result Comment: Cuto ff threshold at 300 ng/mL. Performed By: #### U TOX2 ####[facility] LABCLIA [id number] [place] [address] [place] Ethanol (U) [Mass/Vol] <11 Normal <11 Cl [facility] Comment on above: Order Comment: Speci men Type: URINE SPECIMENOrdering Facility: [facility] Address: [address] [place] [address] Performed By: #### U TOX2 ####[facility] LABCLIA [id number] [place] [address] [place] Opiates Screen Ql (U) Negative Normal Negative [facility] Comment on above: Order Comment: Speci men Type: URINE SPECIMENOrdering Facility: [facility] Address: [address] [place] [address] Result Comment: Cuto ff threshold at 300 ng/mL. Performed By: #### U TOX2 ####[facility] LABCLIA [id number] [place] [address] [place] oxyCODONE cutoff Screen (U) [Mass/Vol] Positive Abnormal Negative [facility] Comment on above: Order Comment: Speci men Type: URINE SPECIMENOrdering Facility: [facility] Address: [address] [place] [address] Result Comment: Cuto ff threshold at 100 ng/mL. Performed By: #### U TOX2 ####[facility] LABCLIA [id number] [place] [address] [place] Phencyclidine Ql (U) Negative Normal Negative [facility] Comment on above: Order Comment: Speci men Type: URINE SPECIMENOrdering Facility: [facility] Address: [address] [place] [address] Result Comment: Cuto ff threshold at 25 ng/mL. Performed By: #### U TOX2 ####[facility] LABCLIA [id number] [place] [address] [place] TYPE + SCREENon 11-12-2024 ABO O Normal [facility] Comment on above: Order Comment: Speci men Type: BLOOD SPECIMENOrdering Facility: [facility] Address: [address] [place] [address] Performed By: #### T SCR ####[facility] BLO[facility] BANKCLIA [id number] [place] [address] [place] Rh Nom (Bld) Positive Normal [facility] Comment on above: Order Comment: Speci men Type: BLOOD SPECIMENOrdering Facility: [facility] Address: [address] [place] [address] Performed By: #### T SCR ####[facility] BLOOD BANKCLIA [id number] [address] STATES OF [facility] TYPE AND SCREEN EXPIRATION 11/15/2024 23:59 Normal [facility] Comment on above: Order Comment: Speci men Type: BLOOD SPECIMENOrdering Facility: [facility] Address: [address] [place] [address] Performed By: #### T SCR ####[facility] BLOOD BANKCLIA [id number] [place] [address] [place] Urinalysis complete panel (U )on 11-12-2024 BACTERIA UL 1553.2 uL High Negative [facility] Comment on above: Order Comment: Speci men Type: URINE SPECIMENOrdering Facility: [facility] Address: [address] [place] [address] Performed By: #### 6 30-4, 91147-4 ####[facility] LABCLIA [id number] [place] [id number] [place] Bilirubin Ql (U) 1+ Abnormal Negative [facility] Comment on above: Order Comment: Speci men Type: URINE SPECIMENOrdering Facility: [facility] Address: [address] [place] [address] Result Comment: Sugg est correlation with clinical findings and serum bilirubin if clinically indicated. Performed By: #### 6 30-4, 15507-3 ####[facility] LABCLIA [id number] [address] [place] [address] [place] Clarity (Unsp spec) Cloudy Abnormal Clear [facility] Comment on above: Order Comment: Speci men Type: URINE SPECIMENOrdering Facility: [facility] Address: [address] [place] [address] Performed By: #### 6 30-4, 95783-5 ####[facility] LABCLIA [id number] [address] [place] [address] [place] Color (U) Meriwether Abnormal Yellow [facility] Comment on above: Order Comment: Speci men Type: URINE SPECIMENOrdering Facility: [facility] Address: [address] [place] [address] Performed By: #### 6 30-4, 97318-7 ####[facility] LABCLIA [id number] [address], [facility] [place] Epithelial cells LM.HPF (Urine sed) [#/Area] None Seen Normal [facility] Comment on above: Order Comment: Speci men Type: URINE SPECIMENOrdering Facility: [facility] Address: [address] [place] [address] Performed By: #### 6 30-4, 31666-4 ####[facility] LABCLIA [id number] [address] [place] [address] [place] Glucose Test strip (U) [Mass/Vol] Negative Normal Negative [facility] Comment on above: Order Comment: Speci men Type: URINE SPECIMENOrdering Facility: [facility] Address: [address] [place], [place] [id number] Performed By: #### 6 30-4, 77432-1 ####[facility] LABCLIA [id number] [address] [place] [address] [place] Hemoglobin Ql (U) 3+ Abnormal Negative [facility] Comment on above: Order Comment: Speci men Type: URINE SPECIMENOrdering Facility: [facility] Address: [address] [place] [address] Performed By: #### 6 30-4, 68572-4 ####[facility] LABCLIA [id number] [address], [facility] [place] Hyaline casts (Urine sed) [#/Area] 0 /[LPF] Normal 0 /LPF [facility] Comment on above: Order Comment: Speci men Type: URINE SPECIMENOrdering Facility: [facility] Address: [address] [place] [address] Performed By: #### 6 30-4, 90401-2 ####[facility] LABCLIA [id number] [address], [place] [address] [place] Ketones Ql (U) Negative Normal Negative [facility] Comment on above: Order Comment: Speci men Type: URINE SPECIMENOrdering Facility: [facility] Address: [address] [place] [address] Performed By: #### 6 30-4, 79418-7 ####[facility] LABCLIA [id number] [address], [place] [address] [place] Leukocyte esterase Test strip Ql (U) 2+ Abnormal Negative [facility] Comment on above: Order Comment: Speci men Type: URINE SPECIMENOrdering Facility: [facility] Address: [address] [place] [address] Performed By: #### 6 30-4, 13893-6 ####[facility] LABCLIA [id number] [address] [place] [address] [place] Nitrite Ql (U) Negative Normal Negative [facility] Comment on above: Order Comment: Speci men Type: URINE SPECIMENOrdering Facility: [facility] Address: [address] [place] [address] Performed By: #### 6 30-4, 93380-8 ####[facility] LABCLIA [id number] [address] [place] [address] [place] pH (U) 6.0 [pH] Normal <8.5 [facility] Comment on above: Order Comment: Speci men Type: URINE SPECIMENOrdering Facility: [facility] Address: [address] [place] [address] Performed By: #### 6 30-4, 28076-7 ####[facility] LABIA [id number] [place] [address] [place] Protein (U) [Mass/Vol] 3+ Abnormal Negative Cl [facility] Comment on above: Order Comment: Speci men Type: URINE SPECIMENOrdering Facility: [facility] Address: [address] [place] [address] Performed By: #### 6 30-4, 88565-6 ####[facility] LABIA [id number] [place] [address] [place] RBC LM.HPF (Urine sed) [#/Area] /[HPF] Abnormal 0-2 /HPF [facility] Comment on above: Order Comment: Speci men Type: URINE SPECIMENOrdering Facility: [facility] Address: [address] [place] [address] Performed By: #### 6 30-4, 32407-3 ####[facility] LABIA [id number] [place] [address] [place] Specific gravity (U) [Rel density] 1.019 Normal 1.005-1.030 [facility] Comment on above: Order Comment: Speci men Type: URINE SPECIMENOrdering Facility: [facility] Address: [address] [place] [address] Performed By: #### 6 30-4, 43482-1 ####[facility] LABIA [id number] [place] [id number] [place] Urobilinogen Ql (U) 0.2 EU/dL Normal 0.2-1.0 EU/dL [facility] Comment on above: Order Comment: Speci men Type: URINE SPECIMENOrdering Facility: [facility] Address: [address] [place] [address] Performed By: #### 6 30-4, 30768-4 ####[facility] LABCLIA [id number] [place] [address] [place] WBC LM.HPF (Urine sed) [#/Area] /[HPF] Abnormal 0-5 /HPF [facility] Comment on above: Order Comment: Speci men Type: URINE SPECIMENOrdering Facility: [facility] Address: [address] [place] [address] Performed By: #### 6 30-4, 17185-1 ####[facility] LABCLIA [id number] [place] [address] [place] ALLIED HEALTHon 11-11-2024 ALLIED HEALTH Normal [facility] ALLIED HEALTH Normal [facility] ANTI PLT FACTOR 4 ABon 11-11 Heparin induced platelet IgG Marco Antonio (S) [Interp] Negative Normal Negative [facility] Comment on above: Order Comment: Speci men Type: BLOOD SPECIMENOrdering Facility: [facility] Address: [address] [place] [address] Result Comment: No a nti-platelet factor 4 IgG antibody is detected by ANDERS assay.Heparin-induced thrombocytopenia (HIT) is unlikely, but should be excluded based on clinical factors. Performed By: #### P LATF4 ####[facility] LABCLIA [id number] [place] [address] [place] Platelet factor 4 Qn (PPP) 0.184 OD Normal <0.400 [facility] Comment on above: Order Comment: Speci men Type: BLOOD SPECIMENOrdering Facility: [facility] Address: [address] [place] [address] Result Comment: Not calculated Performed By: #### P LATF4 ####[facility] LABCLIA [id number] [place] [address] [place] Albumin Fld-mCncon 5 Albumin (Body fld) [Mass/Vol] <0.2 Normal See Comment [facility] Comment on above: Order Comment: Speci men Type: FLUID SPECIMENOrdering Facility: [facility] Address: [address] [place] [address] Result Comment: Body Fluid Albumin may be [...] document C49A. PAULETTE Diaz: Clinical Laboratory Standards [place]: 2007.2. Amy JACKSON. Serum to ascites albumin gradient. UpToDate. 2015. Accessed on November 15, 2015.This test was developed, and its performance characteristics determined by the [facility] Department of Pathology and Laboratory Medicine. It has not been cleared or approved by the FDA. The [facility] Department of Pathology and Laboratory Medicine is regulated under CLIA as qualified to perform high-complexity testing. This test is used for clinical purposes. It should not be regarded as investigational or for research. Performed By: #### 1 747-5, 1795-4, 13150-8, 2881-1 ####[facility] LABIA [id number] [place] [address] [place] Fluid Nom (Body fld) Abdomen Normal [facility] Comment on above: Order Comment: Speci men Type: FLUID SPECIMENOrdering Facility: [facility] Address: [address] [place] [address] Performed By: #### 1 747-5, 1795-4, 85630-5, 2881-1 ####[facility] LABCLIA [id number] [place] [address] [place] Amylase Fld-cCncon 5 Amylase (Body fld) [Catalytic activity/Vol] 14 U/L Normal See Comment [facility] Comment on above: Order Comment: Speci men Type: FLUID SPECIMENOrdering Facility: [facility] Address: [address] [place] [address] Result Comment: PLEU RAL FLUIDS:Amylase measurement in [...] document C49-A. Joe PA: Clinical Laboratory Standards [place]; 2007.3. Kelby CONCEPCION, John BRAR, Star DJ. Use of cyst fluid CEA, CA19-9, and amylase for evaluation of pancreatic lesions. Clinical Biochemistry. 2009;42:8429-4625.This test was developed, and its performance characteristics determined by the [facility] Department of Pathology and Laboratory Medicine. It has not been cleared or approved by the FDA. The [facility] Department of Pathology and Laboratory Medicine is regulated under CLIA as qualified to perform high-complexity testing. This test is used for clinical purposes. It should not be regarded as investigational or for research. Performed By: #### 1 747-5, 1795-4, 72256-4, 2881-1 ####[facility] LABCLIA [id number] [place] [address] [place] Antithrombin Ag actual/philly l IA (PPP) [Relative mass conc]on 11-11-2024 Antithrombin Ag IA Qn (PPP) 32 % Low 80-120 [facility] Comment on above: Order Comment: Speci men Type: BLOOD SPECIMENOrdering Facility: [facility] Address: [address] [place] [address] Performed By: #### L [id number], HCOAG, 6303-2, 55284-5, 80557-1 ####[facility] LABIA [id number] [place] [address] [place] BODY FLUID CELL COUNTon 11-02 Clarity (Unsp spec) Clear Normal Clear [facility] Comment on above: Order Comment: Speci men Type: FLUID SPECIMENOrdering Facility: [facility] Address: [address] [place] [address] Performed By: #### C CBF, [id number] ####[facility] LABIA [id number] [place] [address] [place] Color (Body fld) Colorless Normal Yellow [facility] Comment on above: Order Comment: Speci men Type: FLUID SPECIMENOrdering Facility: [facility] Address: [address] [place] [address] Performed By: #### C CBF, [id number] ####[facility] LABCLIA [id number] [place] [id number] [place] RBC Manual cnt (Body fld) [#/Vol] 2000 /uL High <2000 [facility] Comment on above: Order Comment: Speci men Type: FLUID SPECIMENOrdering Facility: [facility] Address: [address] [place] [address] Performed By: #### C CBF, [id number] ####[facility] LABCLIA [id number] [address] [place] Specimen source Nom (Body fld) Abdomen Normal [facility] Comment on above: Order Comment: Speci men Type: FLUID SPECIMENOrdering Facility: [facility] Address: [address] [place] [address] Performed By: #### C CBF, [id number] ####[facility] LABCLIA [id number] [place] [address] [place] WBC Manual cnt (Body fld) [#/Vol] 70 /uL Normal <1000 [facility] Comment on above: Order Comment: Speci men Type: FLUID SPECIMENOrdering Facility: [facility] Address: [address] [place] [address] Performed By: #### C CBF, [id number] ####[facility] LABCLIA [id number] [facility] [address] [place] Bacteria Bld Culton 11-12-19 25 Bacteria identified Cx Nom (Bld) CULTURE, BLOOD: No growth 5 days GRAM STAIN: This blood culture had less than the recommended 8 ml per bottle, which could decrease the sensitivity of the test. Normal [facility] Comment on above: Performed By: #### 6 00-7 ####[facility] LABCLIA [id number] [facility] [facility] [address], [address] [place] Bacteria identified Cx Nom (Bld) CULTURE, BLOOD: No growth 5 days Normal [facility] Comment on above: Performed By: #### 6 00-7 ####[facility] LABCLIA [id number] [facility] [place] [id number] [place] Bacteria Fld Culton 11-12-19 25 Bacteria identified Cx Nom (Body fld) CULTURE, BODY FLD: No growth GRAM STAIN: No organisms seen Many Polymorphonuclear leukocytes Gram stain performed on cytospun specimen. Gram stain from primary specimen Normal [facility] Comment on above: Performed By: #### 6 35-3, 611-4 ####[facility] LABCLIA [id number] [address] [place] [address] [place] Bacteria Spec Anaerobe Culto n 11-11-2024 Bacteria identified Anaer cx Nom (Unsp spec) Negative Normal [facility] Comment on above: Performed By: #### 6 35-3, 611-4 ####[facility] LABCLIA [id number] [address] [address] [place] Basic metabolic 2000 panelon 11-11-2024 Anion gap [Moles/Vol] 12 mmol/L Normal 8-15 [facility] Comment on above: Order Comment: Speci men Type: BLOOD SPECIMENOrdering Facility: [facility] Address: [address] [place] [address] Performed By: #### 2 276-4, 40591-4, 28642-4, 86471-9, 2777-1, 53260-8 ####[facility] LABCLIA [id number] [place] [address] [place] Calcium [Mass/Vol] 9.1 mg/dL Normal 8.5-10.2 [facility] Comment on above: Order Comment: Speci men Type: BLOOD SPECIMENOrdering Facility: [facility] Address: [address] [place] [address] Performed By: #### 2 276-4, 24745-2, 49467-1, 90099-2, 7-1, 72210-5 ####[facility] LABCLIA [id number] [address] [place] [address] [place] Chloride [Moles/Vol] 97 mmol/L Low 98-107 [facility] Comment on above: Order Comment: Speci men Type: BLOOD SPECIMENOrdering Facility: [facility] Address: [address] [place] [address] Performed By: #### 2 276-4, 46965-5, 31072-4, 17516-7, 2777-1, 35573-5 ####[facility] LABCLIA [id number] [place] [id number] [place] CO2 [Moles/Vol] 14 mmol/L Low 22-30 [facility] Comment on above: Order Comment: Speci men Type: BLOOD SPECIMENOrdering Facility: [facility] Address: [address] [place] [address] Performed By: #### 2 276-4, 27396-5, 11171-7, 21150-8, 2777-1, 57549-3 ####[facility] LABCLIA [id number] [place] [id number] [place] Creatinine [Mass/Vol] 1.35 mg/dL High 0.73-1.22 [facility] Comment on above: Order Comment: Speci men Type: BLOOD SPECIMENOrdering Facility: [facility] Address: [address] [place] [address] Performed By: #### 2 276-4, 16880-6, 92389-7, 23600-9, 2776-1, ####[facility] LABCLIA [id number] [place] [address] [place] Creatinine and Glomerular filtration rate.predicted panel (S/P/Bld) 61 mL/min/1.73m??? Normal >=60 [facility] Comment on above: Order Comment: Speci men Type: BLOOD SPECIMENOrdering Facility: [facility] Address: [address] [place] [address] Result Comment: Patric mated Glomerular Filtration Rate [...] actual GFR. Performed By: #### 2 276-4, 29286-6, 36808-3, 66056-8, 2777-1, 66370-0 ####[facility] LABCLIA [id number] [place] [address] [place] Glucose [Mass/Vol] 292 mg/dL High 74-99 [facility] Comment on above: Order Comment: Speci men Type: BLOOD SPECIMENOrdering Facility: [facility] Address: [address] [place] [address] Result Comment: The [place] [employer] (ADA) provides guidance for cutoff [...] Standards of Medical Care in Diabetes 2016, [place] [employer]. Diabetes Care. 2016.39(Suppl 1). Performed By: #### 2 276-4, 01190-9, 18879-4, 93287-7, 2777-1, 01538-1 ####[facility] LABIA [id number] [place] [address] [place] Potassium [Moles/Vol] 3.6 mmol/L Low 3.7-5.1 [facility] Comment on above: Order Comment: Speci men Type: BLOOD SPECIMENOrdering Facility: [facility] Address: [address] [place] [address] Performed By: #### 2 276-4, 75979-7, 03092-1, 22710-2, 2777-1, 43407-2 ####[facility] [id number] [place] [address] [place] Sodium [Moles/Vol] 123 mmol/L Low 136-144 [facility] Comment on above: Order Comment: Speci men Type: BLOOD SPECIMENOrdering Facility: [facility] Address: [address] [place] [address] Performed By: #### 2 276-4, 08671-3, 50942-8, 72682-7, 2777-1, 44698-8 ####[facility] LABCLIA [id number] [address] [address] [place] Urea nitrogen [Mass/Vol] 22 mg/dL Normal 9-24 [facility] Comment on above: Order Comment: Speci men Type: BLOOD SPECIMENOrdering Facility: [facility] Address: [address] [place] [address] Performed By: #### 2 276-4, 63970-9, 78915-0, 06089-3, 2777-1, 58190-9 ####[facility] LABIA [id number] [place] [address] [place] CARDIOLIPIN IGG ABSon 2024 Cardiolipin IgG IA Qn (S) <9.0 Normal <15.0 [facility] Comment on above: Order Comment: Speci men Type: BLOOD SPECIMENOrdering Facility: [facility] Address: [address] [place] [address] Result Comment: <15 GPL [id number] GPL Indeterminate>20 GPL PositiveThe following results were obtained with the [employer] QUANTA Lite TEZ IgG III ANDERS. Cardiolipin IgG values obtained with the different manufacturers' assay methods may not be used interchangeably. The magnitude of the reported IgG levels cannot be correlated to an endpoint titer. Performed By: #### 5 076-5KATHI CARDIM ####[facility] LABCLIA [id number] [address] [address] [place] CARDIOLIPIN IGM ABSon 2024 Cardiolipin IgM IA Qn (S) <9.0 Normal <12.5 [facility] Comment on above: Order Comment: Speci men Type: BLOOD SPECIMENOrdering Facility: [facility] Address: [address] [place] [address] Result Comment: <12. 5 MPL Hjjtyjzi44.5-20 MPL Indeterminate>20 MPL PositiveThe following results were obtained with the [employer] QUANTA Lite TEZ IgM III ANDERS. Cardiolipin IgM values obtained with the different manufacturers' assay methods may not be used interchangeably. The magnitude of the reported IgM levels cannot be correlated to an endpoint titer.??? Performed By: #### 5 076-5, MELVIN ARMENTA ####[facility] LABIA [id number] [address] [place] [address] [place] CASE MANAGEMon 11-11-2024 CASE MANAGEM Normal [facility] CBC W Auto Differential pane l (Bld)on 11-11-2024 Basophils (Bld) [#/Vol] 0.04 10*3/uL Normal <0.11 [facility] Comment on above: Order Comment: Speci men Type: BLOOD SPECIMENOrdering Facility: [facility] Address: [address] [place] [address] Performed By: #### I PFR, 89186-9, 89905-5 ####[facility] LABIA [id number] [address] [place] [address] [place] Basophils/100 WBC (Bld) 0.4 % Normal [facility] Comment on above: Order Comment: Speci men Type: BLOOD SPECIMENOrdering Facility: [facility] Address: [address] [place] [address] Performed By: #### I PFR, 42322-7, 04842-4 ####[facility] LABCLIA [id number] [address] [place] [address] [place] Differential cell count method Nom (Bld) Auto Normal [facility] Comment on above: Order Comment: Speci men Type: BLOOD SPECIMENOrdering Facility: [facility] Address: [address] [place] [address] Performed By: #### I PFR, 84450-2, 77749-1 ####[facility] LABCLIA [id number] [address] [address] [place] Eosinophils (Bld) [#/Vol] 0.35 10*3/uL Normal <0.46 [facility] Comment on above: Order Comment: Speci men Type: BLOOD SPECIMENOrdering Facility: [facility] Address: [address] [place] [address] Performed By: #### I PFR, 61505-6, 93300-8 ####[facility] LABCLIA [id number] [facility] [address] Eosinophils/100 WBC (Bld) 3.4 % Normal [facility] Comment on above: Order Comment: Speci men Type: BLOOD SPECIMENOrdering Facility: [facility] Address: [address] [place] [address] Performed By: #### I PFR, 06712-8, 63789-4 ####[facility] LABCLIA [id number] [address] [facility] Erythrocyte distribution width (RBC) [Ratio] 17.4 % High 11.5-15.0 [facility] Comment on above: Order Comment: Speci men Type: BLOOD SPECIMENOrdering Facility: [facility] Address: [address] [place] [address] Performed By: #### I PFR, 13562-4, 23777-8 ####[facility] LABCLIA [id number] [address] [place] Hematocrit (Bld) [Volume fraction] 24.6 % Low 39.0-51.0 [facility] Comment on above: Order Comment: Speci men Type: BLOOD SPECIMENOrdering Facility: [facility] Address: [address] [place] [address] Performed By: #### I PFR, 86975-4, 75124-1 ####[facility] LABCLIA [id number] [address], [facility]95 [place] Hemoglobin (Bld) [Mass/Vol] 8.4 g/dL Low 13.0-17.0 [facility] Comment on above: Order Comment: Speci men Type: BLOOD SPECIMENOrdering Facility: [facility] Address: [address] [place] [address] Performed By: #### I PFR, 61590-9, 34854-6 ####[facility] LABCLIA [id number] [place] [address] [place] Immature granulocytes (Bld) [#/Vol] 0.08 10*3/uL Normal <0.10 [facility] Comment on above: Order Comment: Speci men Type: BLOOD SPECIMENOrdering Facility: [facility] Address: [address] [place] [address] Performed By: #### I PFR, 75131-6, 01406-8 ####[facility] LABCLIA [id number] [place] [address] [place] Immature granulocytes/100 WBC (Bld) 0.8 % Normal [facility] Comment on above: Order Comment: Speci men Type: BLOOD SPECIMENOrdering Facility: [facility] Address: [address] [place] [address] Performed By: #### I PFR, 37385-5, 81826-2 ####[facility] LABCLIA [id number] [place] [address] [place] Lymphocytes (Bld) [#/Vol] 0.99 10*3/uL Low 1.00-4.00 [facility] Comment on above: Order Comment: Speci men Type: BLOOD SPECIMENOrdering Facility: [facility] Address: [address] [place] [address] Performed By: #### I PFR, 73798-5, 10418-6 ####[facility] LABCLIA [id number] [place] [address] [place] Lymphocytes/100 WBC (Bld) 9.5 % Normal [facility] Comment on above: Order Comment: Speci men Type: BLOOD SPECIMENOrdering Facility: [facility] Address: [address] [place] [address] Performed By: #### I PFR, 68357-6, 70184-5 ####[facility] LABCLIA [id number] [place] [address] [place] MCH (RBC) [Entitic mass] 31.9 pg Normal 26.0-34.0 [facility] Comment on above: Order Comment: Speci men Type: BLOOD SPECIMENOrdering Facility: [facility] Address: [address] [place] [address] Performed By: #### I PFR, 26614-8, 41245-3 ####[facility] LABCLIA [id number] [place] [address] [place] MCHC (RBC) [Mass/Vol] 34.1 g/dL Normal 30.5-36.0 [facility] Comment on above: Order Comment: Speci men Type: BLOOD SPECIMENOrdering Facility: [facility] Address: [address] [place] [address] Performed By: #### I PFR, 64522-2, 20421-2 ####[facility] LABCLIA [id number] [place] [address] [place] MCV (RBC) [Entitic vol] 93.5 fL Normal 80.0-100.0 [facility] Comment on above: Order Comment: Speci men Type: BLOOD SPECIMENOrdering Facility: [facility] Address: [address] [place] [address] Performed By: #### I PFR, 90198-0, 76896-1 ####[facility] LABCLIA [id number] [place] [address] [place] Monocytes (Bld) [#/Vol] 0.97 10*3/uL High <0.87 [facility] Comment on above: Order Comment: Speci men Type: BLOOD SPECIMENOrdering Facility: [facility] Address: [address] [place] [address] Performed By: #### I PFR, 98627-8, 64253-4 ####[facility] LABCLIA [id number] [place] [address] [place] Monocytes/100 WBC (Bld) 9.3 % Normal [facility] Comment on above: Order Comment: Speci men Type: BLOOD SPECIMENOrdering Facility: [facility] Address: [address] [place] [address] Performed By: #### I PFR, 46165-6, 80764-4 ####[facility] LABCLIA [id number] [place] [address] [place] Neutrophils (Bld) [#/Vol] 8.00 10*3/uL High 1.45-7.50 [facility] Comment on above: Order Comment: Speci men Type: BLOOD SPECIMENOrdering Facility: [facility] Address: [address] [place] [address] Performed By: #### I PFR, 50414-1, 37107-6 ####[facility] LABCLIA [id number] [address] [place] Neutrophils/100 WBC (Bld) 76.6 % Normal [facility] Comment on above: Order Comment: Speci men Type: BLOOD SPECIMENOrdering Facility: [facility] Address: [address] [place] [address] Performed By: #### I PFR, 75328-7, 85925-0 ####[facility] LABCLIA [id number] [place] [id number] [place] Nucleated RBC (Bld) [#/Vol] 10*3/uL Normal <0.01 [facility] Comment on above: Order Comment: Speci men Type: BLOOD SPECIMENOrdering Facility: [facility] Address: [address] [place] [address] Performed By: #### I PFR, 09464-8, 03780-4 ####[facility] LABCLIA [id number] [address] [address] [place] Nucleated RBC/100 WBC (Bld) [Ratio] 0.0 /100 WBC Normal [facility] Comment on above: Order Comment: Speci men Type: BLOOD SPECIMENOrdering Facility: [facility] Address: [address] [place] [address] Performed By: #### I PFR, 26356-5, 27118-7 ####[facility] LABCLIA [id number] [address] [address] [place] Platelet mean volume (Bld) [Entitic vol] 11.5 fL Normal 9.0-12.7 [facility] Comment on above: Order Comment: Speci men Type: BLOOD SPECIMENOrdering Facility: [facility] Address: [address] [place] [address] Performed By: #### I PFR, 74679-8, 92069-8 ####[facility] LABIA [id number] [place] [id number] [place] Platelets (Bld) [#/Vol] 43 10*3/uL Low 150-400 [facility] Comment on above: Order Comment: Speci men Type: BLOOD SPECIMENOrdering Facility: [facility] Address: [address] [place] [address] Performed By: #### I PFR, 05983-2, 21220-0 ####[facility] LABIA [id number] [address] [address] [place] RBC (Bld) [#/Vol] 2.63 10*6/uL Low 4.20-6.00 [facility] Comment on above: Order Comment: Speci men Type: BLOOD SPECIMENOrdering Facility: [facility] Address: [address] [place] [address] Performed By: #### I PFR, 35220-2, 86178-0 ####[facility] LABCLIA [id number] [address] [place] [address] [place] WBC (Bld) [#/Vol] 10.43 10*3/uL Normal 3.70-11.00 [facility] Comment on above: Order Comment: Speci men Type: BLOOD SPECIMENOrdering Facility: [facility] Address: [address] [place] [address] Performed By: #### I PFR, 21499-0, 87007-7 ####[facility] LABCLIA [id number] [place] [id number] [place] Basophils (Bld) [#/Vol] 0.06 10*3/uL Normal <0.11 [facility] Comment on above: Order Comment: Speci men Type: BLOOD SPECIMENOrdering Facility: [facility] Address: [address] [place] [address] Performed By: #### 5 5454-3, 98581-3 ####[facility] LABCLIA [id number] [place] [id number] [place] Basophils/100 WBC (Bld) 0.4 % Normal [facility] Comment on above: Order Comment: Speci men Type: BLOOD SPECIMENOrdering Facility: [facility] Address: [address] [place] [address] Performed By: #### 5 5454-3, 20168-2 ####[facility] LABCLIA [id number] [address] [address] [place] Differential cell count method Nom (Bld) Auto Normal [facility] Comment on above: Order Comment: Speci men Type: BLOOD SPECIMENOrdering Facility: [facility] Address: [address] [place] [address] Performed By: #### 5 5454-3, 17298-2 ####[facility] LABCLIA [id number] [address] [address] [place] Eosinophils (Bld) [#/Vol] 0.40 10*3/uL Normal <0.46 [facility] Comment on above: Order Comment: Speci men Type: BLOOD SPECIMENOrdering Facility: [facility] Address: [address] [place] [address] Performed By: #### 5 5454-3, 82365-1 ####[facility] LABCLIA [id number] [facility] [address] [place] Eosinophils/100 WBC (Bld) 2.5 % Normal [facility] Comment on above: Order Comment: Speci men Type: BLOOD SPECIMENOrdering Facility: [facility] Address: [address] [place] [address] Performed By: #### 5 5454-3, 48682-5 ####[facility] LABCLIA [id number] [place] [address] [place] Erythrocyte distribution width (RBC) [Ratio] 18.0 % High 11.5-15.0 [facility] Comment on above: Order Comment: Speci men Type: BLOOD SPECIMENOrdering Facility: [facility] Address: [address] [place] [address] Performed By: #### 5 5454-3, 38243-0 ####[facility] LABIA [id number] [place] [address] [place] Hematocrit (Bld) [Volume fraction] 30.4 % Low 39.0-51.0 [facility] Comment on above: Order Comment: Speci men Type: BLOOD SPECIMENOrdering Facility: [facility] Address: [address] [place] [address] Performed By: #### 5 5454-3, 20006-1 ####[facility] LABCLIA [id number] [facility] [place] [id number] [place] Hemoglobin (Bld) [Mass/Vol] 10.2 g/dL Low 13.0-17.0 [facility] Comment on above: Order Comment: Speci men Type: BLOOD SPECIMENOrdering Facility: [facility] Address: [address] [place] [address] Performed By: #### 5 5454-3, 61558-6 ####[facility] LABCLIA [id number] [address], [facility]95 [place] Immature granulocytes (Bld) [#/Vol] 0.18 10*3/uL High <0.10 [facility] Comment on above: Order Comment: Speci men Type: BLOOD SPECIMENOrdering Facility: [facility] Address: [address] [place] [address] Performed By: #### 5 5454-3, 05949-6 ####[facility] LABCLIA [id number] [place] [address] [place] Immature granulocytes/100 WBC (Bld) 1.1 % Normal [facility] Comment on above: Order Comment: Speci men Type: BLOOD SPECIMENOrdering Facility: [facility] Address: [address] [place] [address] Performed By: #### 5 5454-3, 72201-1 ####[facility] LABCLIA [id number] [place] [address] [place] Lymphocytes (Bld) [#/Vol] 1.19 10*3/uL Normal 1.00-4.00 [facility] Comment on above: Order Comment: Speci men Type: BLOOD SPECIMENOrdering Facility: [facility] Address: [address] [place] [address] Performed By: #### 5 5454-3, 26473-9 ####[facility] LABCLIA [id number] [place] [address] [place] Lymphocytes/100 WBC (Bld) 7.6 % Normal [facility] Comment on above: Order Comment: Speci men Type: BLOOD SPECIMENOrdering Facility: [facility] Address: [address] [place] [address] Performed By: #### 5 5454-3, 47605-7 ####[facility] LABIA [id number] [place] [address] [place] MCH (RBC) [Entitic mass] 31.3 pg Normal 26.0-34.0 [facility] Comment on above: Order Comment: Speci men Type: BLOOD SPECIMENOrdering Facility: [facility] Address: [address] [place] [address] Performed By: #### 5 5454-3, 70014-6 ####[facility] [id number] [address] [place] MCHC (RBC) [Mass/Vol] 33.6 g/dL Normal 30.5-36.0 [facility] Comment on above: Order Comment: Speci men Type: BLOOD SPECIMENOrdering Facility: [facility] Address: [address] [place] [address] Performed By: #### 5 5454-3, 48137-7 ####[facility] [id number] [place] [address] [place] MCV (RBC) [Entitic vol] 93.3 fL Normal 80.0-100.0 [facility] Comment on above: Order Comment: Speci men Type: BLOOD SPECIMENOrdering Facility: [facility] Address: [address] [place] [address] Performed By: #### 5 5454-3, 48664-6 ####[facility] [id number] [place] [id number] [place] Monocytes (Bld) [#/Vol] 1.36 10*3/uL High <0.87 [facility] Comment on above: Order Comment: Speci men Type: BLOOD SPECIMENOrdering Facility: [facility] Address: [address] [place] [address] Performed By: #### 5 5454-3, 34011-5 ####[facility] LABCLIA [id number] [address] [address] [place] Monocytes/100 WBC (Bld) 8.6 % Normal [facility] Comment on above: Order Comment: Speci men Type: BLOOD SPECIMENOrdering Facility: [facility] Address: [address] [place] [address] Performed By: #### 5 5454-3, 59658-1 ####[facility] LABCLIA [id number] [place] [address] [place] Neutrophils (Bld) [#/Vol] 12.55 10*3/uL High 1.45-7.50 [facility] Comment on above: Order Comment: Speci men Type: BLOOD SPECIMENOrdering Facility: [facility] Address: [address] [place] [address] Performed By: #### 5 5454-3, 62713-0 ####[facility] LABCLIA [id number] [place] [address] [place] Neutrophils/100 WBC (Bld) 79.8 % Normal [facility] Comment on above: Order Comment: Speci men Type: BLOOD SPECIMENOrdering Facility: [facility] Address: [address] [place] [address] Performed By: #### 5 5454-3, 69847-5 ####[facility] LABCLIA [id number] [place] [address] [place] Nucleated RBC (Bld) [#/Vol] 10*3/uL Normal <0.01 [facility] Comment on above: Order Comment: Speci men Type: BLOOD SPECIMENOrdering Facility: [facility] Address: [address] [place] [address] Performed By: #### 5 5454-3, 05787-8 ####[facility] LABCLIA [id number] [place] [id number] [place] Nucleated RBC/100 WBC (Bld) [Ratio] 0.0 /100 WBC Normal [facility] Comment on above: Order Comment: Speci men Type: BLOOD SPECIMENOrdering Facility: [facility] Address: [address] [place] [address] Performed By: #### 5 5454-3, 76247-2 ####[facility] LABIA [id number] [place] [address] [place] Platelet mean volume (Bld) [Entitic vol] 12.1 fL Normal 9.0-12.7 [facility] Comment on above: Order Comment: Speci men Type: BLOOD SPECIMENOrdering Facility: [facility] Address: [address] [place] [address] Performed By: #### 5 5454-3, 92051-4 ####[facility] LABIA [id number] [place] [address] [place] Platelets (Bld) [#/Vol] 52 10*3/uL Low 150-400 [facility] Comment on above: Order Comment: Speci men Type: BLOOD SPECIMENOrdering Facility: [facility] Address: [address] [place] [address] Result Comment: Resu lts checked and verified.No clot detected. Performed By: #### 5 5454-3, 09262-0 ####[facility] LABIA [id number] [place] [address] [place] RBC (Bld) [#/Vol] 3.26 10*6/uL Low 4.20-6.00 [facility] Comment on above: Order Comment: Speci men Type: BLOOD SPECIMENOrdering Facility: [facility] Address: [address] [place] [address] Performed By: #### 5 5454-3, 10669-9 ####[facility] LABIA [id number] [place] [address] [place] WBC (Bld) [#/Vol] 15.74 10*3/uL High 3.70-11.00 [facility] Comment on above: Order Comment: Speci men Type: BLOOD SPECIMENOrdering Facility: [facility] Address: [address] [place] [address] Performed By: #### 5 5454-3, 75319-1 ####[facility] LABIA [id number] [place] [address] [place] CEA SerPl-mCncon 11-11-2024 Carcinoembryonic Ag [Mass/Vol] 13.0 ng/mL High <=2.9 [facility] Comment on above: Order Comment: Speci men Type: BLOOD SPECIMENOrdering Facility: [facility] Address: [address] [place] [address] Result Comment: Carc inoembryonic antigen test is used as an aid in monitoring response to treatment or recurrence in patients with established colorectal, breast, lung, prostatic, pancreatic, and ovarian carcinomas. Clinical correlation is required.The Carcinoembryonic antigen test was performed using the [employer] Unicel DXI paramagnetic particle chemiluminescent immunoassay method. Results obtained with different assay methods or kits cannot be used interchangeably. Performed By: #### 2 039-6, 50425-0, 2532-0 ####[facility] LABIA [id number] [place] [address] [place] COAG CORE PANEL BLDon 2024 aPTT Coag (PPP) [Time] 41.3 s High 23.0-32.4 [facility] Comment on above: Order Comment: Speci men Type: BLOOD SPECIMENOrdering Facility: [facility] Address: [address] [place] [address] Performed By: #### C ORPNL ####[facility] LABIA [id number] [place] [id number] [place] Fibrinogen Coag (PPP) [Mass/Vol] 88 mg/dL Low 200-400 [facility] Comment on above: Order Comment: Speci men Type: BLOOD SPECIMENOrdering Facility: [facility] Address: [address] [place] [address] Result Comment: Samp le checked for clot.Result rechecked. Performed By: #### C ORPNL ####[facility] LABCLIA [id number] [place] [address] [place] INR Coag (PPP) [Relative time] 2.1 {INR} High 0.9-1.3 [facility] Comment on above: Order Comment: Spechelder ramirez Type: BLOOD SPECIMENOrdering Facility: [facility] Address: [address] [place] [address] Result Comment: Sarah min K Antagonist (VKA) Therapeutic Range: INR 2 to 3 (Target INR of 2.5)Note: For patients treated with VKA drugs, such as warfarin, the [employer] 2012 Guideline recommends [...] al. Chest 2012, 141:7S-47SNishbethel RA, et al. [facility] 2017, 70: 252-289 Performed By: #### C ORPNL ####[facility] LABCLIA [id number] [place] [address] [place] PT Coag (PPP) [Time] 21.8 s High 9.7-13.0 [facility] Comment on above: Order Comment: Ezekiel ramirez Type: BLOOD SPECIMENOrdering Facility: [facility] Address: [address] [place] [address] Performed By: #### C ORPNL ####[facility] LABCLIA [id number] [place] [id number] [place] CONSULTon 11-11-2024 CONSULT Normal [facility] CONSULT Normal [facility] CRP SerPl-mCncon 11-11-2024 CRP [Mass/Vol] 0.5 mg/dL Normal <0.9 [facility] Comment on above: Order Comment: Speci men Type: BLOOD SPECIMENOrdering Facility: [facility] Address: [address] [place] [address] Performed By: #### D ASHLEY, 1986-12 ####[facility] LABCLIA [id number] [place] [address] [place] CYTOLOGY NON-GYNon AP DISCLAIMER Normal [facility] Comment on above: Order Comment: Speci men Type: FLUID SPECIMENOrdering Facility: [facility] Address: [address] [place] [address] Result Comment: Shellie pugh Developed Test (LDT) Disclaimer:Performance characteristics of immunohistochemical, immunofluorescent, and chromogenic in-situ hybridization tests have been determined by the performing laboratory within [facility]'s [facility] Pathology and Laboratory Medicine Department ([facility], [facility], [facility], [facility], [facility], [facility], or [facility]) in a manner consistent with CLIA requirements. One or more of these tests may not have been cleared or approved by the FDA. RT-PLM is regulated under CLIA as qualified to perform high-complexity testing. These tests are used for clinical purposes. These should not be regarded as investigational or for research. Positive and negative controls stain appropriately. Performed By: #### C YTONON ####[facility] LABCLIA [id number] [place] [address] [place] CASE REPORT Normal [facility] Comment on above: Order Comment: Speci men Type: FLUID SPECIMENOrdering Facility: [facility] Address: [address] [place] [address] Result Comment: [facility] Cytology Report Case: [id number] Provider: Yaritza Juarez, Collected: 11/11/2024 05:14 PM FRAME FIXER.CNPOrdering Location: [place] [address] Received: 11/11/2024 08:30 PMPathologist: Sameer Fournier MDSpecimen: Abdomen Performed By: #### C YTONON ####[facility] LABCLIA [id number] [place] [address] [place] CLINICAL HISTORY paracentesis fluid Normal [facility] Comment on above: Order Comment: Speci men Type: FLUID SPECIMENOrdering Facility: [facility] Address: [address] [place] [address] Performed By: #### C YTONON ####[facility] LABCLIA [id number] [address] [place] FINAL DIAGNOSIS Normal [facility] Comment on above: Order Comment: Speci men Type: FLUID SPECIMENOrdering Facility: [facility] Address: [address] [place] [address] Result Comment: A - Abdomen, Fluid Negative for malignant cells.The following cell blocks were associated with this case:A1\X09\Cell Block, Alcohol Fixed\X09\ at 1034 EDT Performed By: #### C YTONON ####[facility] LABCLIA [id number] [address] [place] FINAL PERFORMING LAB Normal [facility] Comment on above: Order Comment: Speci men Type: FLUID SPECIMENOrdering Facility: [facility] Address: [address] [place] [address] Result Comment: Tech nical component, shearing machine tender screening performed at: [facility], [address] [place], [place] [id number] CLIA: [id number] interpretation performed at: [facility], [address] [place] [address] CLIA# [id number] Director: Titi Voss MD Performed By: #### C YTONON ####[facility] LABIA [id number] [address] STATES OF [facility] GROSS DESCRIPTION A. Abdomen Normal [facility] Comment on above: Order Comment: Speci men Type: FLUID SPECIMENOrdering Facility: [facility] Address: [address] [place] [address] Result Comment: 1450 cc opaque lexis fluid . ThinPrep and Cell Block prepared. Performed By: #### C YTONON ####[facility] [id number] [address] [place] Cancer Ag19-9 SerPl-aCncon 0 11-11-2024 Cancer Ag 19-9 Qn <2.0 Normal <36.0 [facility] Comment on above: Order Comment: Speci [facility] Type: BLOOD SPECIMENOrdering Facility: [facility] Address: [address] [place] [address] Result Comment: [facility] er antigen 19-9 test is used as an aid in monitoring response to treatment or recurrence in patients with established pancreatic, hepatobiliary, or gastrointestinal malignancies. Clinical correlation is required.The CA 19-9 Antigen test was performed using the [employer] Unicel DXI paramagnetic particle chemiluminescent immunoassay method. Results obtained with different assay methods or kits cannot be used interchangeably. Performed By: #### 2 039-6, 04824-7, 2532-0 ####[facility] [id number] [place] [address] [place] Cardiolipin IgA Ser IA-aCnco n 11-11-2024 Cardiolipin IgA IA Qn (S) 9.7 [APL'U] Normal <12.0 [facility] Comment on above: Order Comment: Speci men Type: BLOOD SPECIMENOrdering Facility: [facility] Address: [address] [place] [address] Result Comment: <12 APL Mnuitmyu38-23 APL Indeterminate>20 APL PositiveThe following results were obtained with the [employer] QUANTA Lite TEZ IgA III ANDERS. Cardiolipin IgA values obtained with the different manufacturers' assay methods may not be used interchangeably. The magnitude of the reported IgA levels cannot be correlated to an endpoint titer. Performed By: #### 5 076-5, MELVIN ARMENTA ####[facility] LABCLIA [id number] [place] [address] [place] DIRECT BILIRUBIN BLOODon Bilirubin.conjugated [Mass/Vol] 1.1 mg/dL High <0.3 [facility] Comment on above: Order Comment: Speci men Type: BLOOD SPECIMENOrdering Facility: [facility] Address: [address] [place] [address] Performed By: #### D ASHLEY, 1986-12 ####[facility] LABCLIA [id number] [place] [address] [place] ECG COMPLETEon 11-11-2024 ECG COMPLETE Normal [facility] BYU88mt 11-11-2024 ECG01 Normal [facility] Ferritin [facility]Pl[facility] Ferritin [Mass/Vol] 82.4 ng/mL Normal 30.3-565.7 [facility] Comment on above: Order Comment: Speci men Type: BLOOD SPECIMENOrdering Facility: [facility] Address: [address] [place] [address] Performed By: #### 2 276-4, 51127-0, 34310-4, 22696-3, 2777-1, 64442-1 ####[facility] LABCLIA [id number] [place] [address] [place] Fibrinogen PPP-mCncon 2024 Fibrinogen Coag (PPP) [Mass/Vol] 90 mg/dL Low 200-400 [facility] Comment on above: Order Comment: Speci men Type: BLOOD SPECIMENOrdering Facility: [facility] Address: [address] [place] [address] Result Comment: Lino daniel checked for clot.Result rechecked. Performed By: #### 3 255-7, 14992-4 ####[facility] LABCLIA [id number] [place] [address] [place] HISTORY PHYSICALon HISTORY PHYSICAL Normal [facility] HYPERCOAG PANELon 11-11-2024 Activated protein C resistance Coag (PPP) [Time ratio] 2.10 Ratio Normal >1.96 [facility] Comment on above: Order Comment: Speci men Type: BLOOD SPECIMENOrdering Facility: [facility] Address: [address] [place] [address] Performed By: #### L [id number], HCOAG, 6303-2, 81325-0, 15604-8 ####[facility] LABCLIA [id number] [place] [address] [place] Antithrombin actual/normal Chromogenic method (PPP) [Rel catalytic activity/Vol] 30 % Low 84-138 [facility] Comment on above: Order Comment: Speci men Type: BLOOD SPECIMENOrdering Facility: [facility] Address: [address] [place] [address] Performed By: #### L [id number], HCOAG, 6303-2, 46275-3, 61557-5 ####[facility] LABIA [id number] [place] [address] [place] aPTT Coag (Bld) [Time] 47.9 s High 24.0-35.1 [facility] Comment on above: Order Comment: Speci men Type: BLOOD SPECIMENOrdering Facility: [facility] Address: [address] [place] [address] Performed By: #### L [id number], HCOAG, 6303-2, 96171-1, 73126-3 ####[facility] LABIA [id number] [address] [address] [place] aPTT W excess hexagonal phase phospholipid Coag (PPP) [Time] 36.5 seconds Normal 34.0-51.8 [facility] Comment on above: Order Comment: Speci men Type: BLOOD SPECIMENOrdering Facility: [facility] Address: [address] [place] [address] Performed By: #### L [id number], HCOAG, 6303-2, 43488-2, 62753-9 ####[facility] LABCLIA [id number] [place] [address] [place] aPTT-LA w 1:1 PNP Coag (PPP) [Time] 32.5 seconds Normal <33.2 [facility] Comment on above: Order Comment: [facility] Type: BLOOD SPECIMENOrdering Facility: [facility] Address: [address] [place] [address] Result Comment: This test was developed, and its performance characteristics determined by the [facility] Department of Pathology and Laboratory Medicine. It has not been cleared or approved by the FDA. The [facility] Department of Pathology and Laboratory Medicine is regulated under CLIA as qualified to perform high-complexity testing. This test is used for clinical purposes. It should not be regarded as investigational or for research. Performed By: #### L [id number], HCOAG, 6303-2, 03282-0, 53891-4 ####[facility] LABCLIA [id number] [place] [address] [place] Coagulation factor VIII activity actual/normal Coag (PPP) [Relative time] 332 % High 50-173 [facility] Comment on above: Order Comment: Speci men Type: BLOOD SPECIMENOrdering Facility: [facility] Address: [address] [place] [address] Performed By: #### L [id number], HCOAG, 6303-2, 23643-2, 49792-6 ####[facility] LABCLIA [id number] [address] [address] [place] Coagulation factor X activated act Coag Qn (PPP) <0.10 Normal <0.10 [facility] Comment on above: Order Comment: Speci men Type: BLOOD SPECIMENOrdering Facility: [facility] Address: [address] [place] [address] Result Comment: This test was developed, and its performance characteristics determined by the [facility] Department of Pathology and Laboratory Medicine. It has not been cleared or approved by the FDA. The [facility] Department of Pathology and Laboratory Medicine is regulated under CLIA as qualified to perform high-complexity testing. This test is used for clinical purposes. It should not be regarded as investigational or for research. Performed By: #### L [id number], HCOAG, 6303-2, 87118-0, 09283-5 ####[facility] [id number] [place] [address] [place] Delta dRVVT Coag (PPP) [Time diff] 2.2 delta seconds Normal <7.1 [facility] Comment on above: Order Comment: Speci men Type: BLOOD SPECIMENOrdering Facility: [facility] Address: [address] [place] [address] Performed By: #### L [id number], HCOAG, 6303-2, 61493-5, 14488-8 ####[facility] [id number] [place] [address] [place] dRVVT W excess hexagonal phase phospholipid actual/normal Coag (PPP) [Relative time] 34.3 seconds Normal 34.2-47.9 [facility] Comment on above: Order Comment: Speci men Type: BLOOD SPECIMENOrdering Facility: [facility] Address: [address] [place] [address] Performed By: #### L [id number], HCOAG, 6303-2, 30023-9, 52773-5 ####[facility] [id number] [place] [address] [place] Protein C actual/normal Coag (PPP) [Relative time] 24 % Low 76-147 [facility] Comment on above: Order Comment: Speci men Type: BLOOD SPECIMENOrdering Facility: [facility] Address: [address] [place] [address] Performed By: #### L [id number], HCOAG, 6303-2, 21830-4, 36022-9 ####[facility] LABCLIA [id number] [address] Protein S actual/normal Coag (PPP) [Relative time] 28 % Low 59-152 [facility] Comment on above: Order Comment: Speci men Type: BLOOD SPECIMENOrdering Facility: [facility] Address: [address] [place] [address] Performed By: #### L [id number], HCOAG, 6303-2, 43922-6, 31506-6 ####[facility] LABCLIA [id number] [address] [facility] Protein S Free Ag actual/normal IA (PPP) [Relative mass conc] 45 % Low 55-148 [facility] Comment on above: Order Comment: Speci men Type: BLOOD SPECIMENOrdering Facility: [facility] Address: [address] [place] [address] Performed By: #### L [id number], HCOAG, 6303-2, 19245-0, 69219-5 ####[facility] LABCLIA [id number] [place] [address] [place] Thrombin time Coag (PPP) [Time] 20.0 seconds High <18.6 [facility] Comment on above: Order Comment: Speci men Type: BLOOD SPECIMENOrdering Facility: [facility] Address: [address] [place] [address] Performed By: #### L [id number], HCOAG, 6303-2, 88122-3, 47657-7 ####[facility] LABCLIA [id number] [place] [address] [place] HYPERCOAG PANEL INTERPon INTERPRETATION (HYPERCOAG) Normal [facility] Comment on above: Order Comment: Speci men Type: BLOOD SPECIMENOrdering Facility: [facility] Address: [address], [place] [address] Result Comment: Amisha gallegos - see comment below.SIGNIFICANT FINDINGS:1. Decreased antithrombin, [...] negative for the c.*97G>A variant (legacy name 80986U>A) in the 3' untranslated region of the [...] phase phospholipid neutralization. Performed By: #### L [id number], HCOAG, 6303-2, 40663-8, 77245-7 ####[facility] LABIA [id number] [place] [address] [place] Pathologist name Reviewed by Julia Howell M.D., Ph.D [facility] Comment on above: Order Comment: Ezekiel ramirez Type: BLOOD SPECIMENOrdering Facility: [facility] Address: [address] [place] [address] Performed By: #### L [id number], HCOAG, 6303-2, 28793-1, 93917-4 ####[facility] LABIA [id number] [place] [address] [place] Haptoglob SerPl-mCncon 11-11 Haptoglobin [Mass/Vol] 15 mg/dL Low 31-238 [facility] Comment on above: Order Comment: Ezekiel ramirez Type: BLOOD SPECIMENOrdering Facility: [facility] Address: [address] [place] [address] Performed By: #### 2 4362-6, 4542-7 ####[facility] LABIA [id number] [address] [address] [place] HbA1c (Bld)on 11-11-2024 Average glucose Estimated from glycated hemoglobin (Bld) [Mass/Vol] 154 mg/dL Normal [facility] Comment on above: Order Comment: Ezekiel ramirez Type: BLOOD SPECIMENOrdering Facility: [facility] Address: [address] [place] [address] Result Comment: eAG: (Estimated average glucose) is a calculated value from HgbA1c and is welding equipment sales representative of the average blood glucose level in the last 2-3 month period. Performed By: #### 5 5454-3, 96515-4 ####[facility] LABCLIA [id number] [place] [address] [place] HbA1c (Bld) [Mass fraction] 7.0 % High 4.3-5.6 [facility] Comment on above: Order Comment: Ezekiel ramirez Type: BLOOD SPECIMENOrdering Facility: [facility] Address: [address] [place] [address] Result Comment: [place] Diabetes Association guidelines indicate that patients with HgbA1c in the range 5.7-6.4% are at increased risk for development of diabetes, and intervention by lifestyle modification may be beneficial. HgbA1c greater or equal to 6.5% is considered diagnostic of diabetes. Performed By: #### 5 5454-3, 25202-1 ####[facility] LABCLIA [id number] [place] [id number] [place] Hepatic function 2000 panelo n 11-11-2024 Albumin [Mass/Vol] 2.1 g/dL Low 3.9-4.9 [facility] Comment on above: Order Comment: Ezekiel ramirez Type: BLOOD SPECIMENOrdering Facility: [facility] Address: [address] [place] [address] Performed By: #### 2 276-4, 94886-5, 51945-0, 72310-4, 2777-1, 01836-7 ####[facility] LABCLIA [id number] [address] [address] [place] ALP [Catalytic activity/Vol] 310 U/L High 38-113 [facility] Comment on above: Order Comment: Speci men Type: BLOOD SPECIMENOrdering Facility: [facility] Address: [address] [place] [address] Performed By: #### 2 276-4, 58749-3, 75126-9, 55172-6, 2777-1, 55941-7 ####[facility] LABIA [id number] [place] [id number] [place] ALT [Catalytic activity/Vol] 31 U/L Normal 10-54 [facility] Comment on above: Order Comment: Speci men Type: BLOOD SPECIMENOrdering Facility: [facility] Address: [address] [place] [address] Performed By: #### 2 276-4, 41252-5, 14937-6, 04895-2, 7-1, 48642-6 ####[facility] [id number] [place] [id number] [place] AST [Catalytic activity/Vol] 44 U/L High 14-40 [facility] Comment on above: Order Comment: Speci men Type: BLOOD SPECIMENOrdering Facility: [facility] Address: [address] [place] [address] Performed By: #### 2 276-4, 54451-7, 23662-4, 99796-3, 7-1, 52477-1 ####[facility] LABIA [id number] [address] [address] [place] Bilirubin [Mass/Vol] 1.6 mg/dL High 0.2-1.3 [facility] Comment on above: Order Comment: Speci men Type: BLOOD SPECIMENOrdering Facility: [facility] Address: [address] [place] [address] Performed By: #### 2 276-4, 99657-9, 43754-8, 64184-0, 2777-1, ####[facility] LABIA [id number] [place] [address] [place] Bilirubin.conjugated [Mass/Vol] 1.0 mg/dL High <0.3 [facility] Comment on above: Order Comment: Speci men Type: BLOOD SPECIMENOrdering Facility: [facility] Address: [address] [place] [address] Performed By: #### 2 276-4, 83683-6, 59731-7, 86021-2, 2776-1, ####[facility] LABIA [id number] [place] [address] [place] Protein [Mass/Vol] 5.3 g/dL Low 6.3-8.0 [facility] Comment on above: Order Comment: Speci men Type: BLOOD SPECIMENOrdering Facility: [facility] Address: [address] [place] [address] Performed By: #### 2 276-4, 97738-6, 89656-3, 15889-0, 2776-1, ####[facility] [id number] [place] [address] [place] IMMATURE PLATELET FRACTIONon 11-11-2024 Platelets reticulated/100 platelets Auto (Bld) 7.7 % High 0.9-7.2 [facility] Comment on above: Order Comment: Speci men Type: BLOOD SPECIMENOrdering Facility: [facility] Address: [address] [place] [address] Performed By: #### I PFR, 40936-4, 34854-1 ####[facility] LABIA [id number] [place] [address] [place] Iron and Iron binding capaci ty panelon 11-11-2024 Iron [Mass/Vol] 34 ug/dL Low 41-186 [facility] Comment on above: Order Comment: Speci men Type: BLOOD SPECIMENOrdering Facility: [facility] Address: [address] [place], [place] [address] Performed By: #### 2 276-4, 52712-2, 70745-6, 93786-4, 2777-1, 03898-3 ####[facility] LABCLIA [id number] [address] [address] [place] Iron binding capacity [Mass/Vol] 180 ug/dL Low 232-386 [facility] Comment on above: Order Comment: Speci men Type: BLOOD SPECIMENOrdering Facility: [facility] Address: [address] [place] [address] Performed By: #### 2 276-4, 41584-9, 81845-6, 86917-9, 7-1, 47726-8 ####[facility] LABCLIA [id number] [place] [address] [place] Iron/TIBC [Molar ratio] 18.9 % Normal 15.0-57.0 [facility] Comment on above: Order Comment: Speci men Type: BLOOD SPECIMENOrdering Facility: [facility] Address: [address] [place] [address] Performed By: #### 2 276-4, 28873-4, 59530-5, 03536-6, 7-1, 71735-6 ####[facility] LABCLIA [id number] [place] [id number] [place] LDH SerPl-cCncon 11-11-2024 LDH [Catalytic activity/Vol] 321 U/L High 135-225 [facility] Comment on above: Order Comment: Speci men Type: BLOOD SPECIMENOrdering Facility: [facility] Address: [address] [place] [address] Performed By: #### 2 039-6, 65494-0, 2532-0 ####[facility] LABCLIA [id number] [facility] [place] [id number] [place] Lipase Fld-cCncon 11-11-2024 Lipase (Body fld) [Catalytic activity/Vol] 29 U/L Normal See Comment [facility] Comment on above: Order Comment: Ezekiel ramirez Type: FLUID SPECIMENOrdering Facility: [facility] Address: [address] [place] [address] Result Comment: Pleu ral fluids: Lipase measurement [...] document C49A. PAULETTE Diaz: Clinical Laboratory Standards [place]: 2007.2. David Guillory. A review of pancreatic cyst fluid analysis in the differential diagnosis of pancreatic cyst lesions. [facility] [employer] OnlineFirst 2013:0:1-16. Performed By: #### 1 747-5, 1795-4, 82407-9, 2881-1 ####[facility] LABCLIA [id number] [place] [address] [place] Lupus anticoagulant neutrali zation platelet Coag Ql (PPP)on 11-11-2024 aPTT Coag (Bld) [Time] 56.8 s High 30.2-43.0 [facility] Comment on above: Order Comment: Ezekiel ramirez Type: BLOOD SPECIMENOrdering Facility: [facility] Address: [address] [place] [address] Result Comment: This test was developed, and its performance characteristics determined by the [facility] Department of Pathology and Laboratory Medicine. It has not been cleared or approved by the FDA. The [facility] Department of Pathology and Laboratory Medicine is regulated under CLIA as qualified to perform high-complexity testing. This test is used for clinical purposes. It should not be regarded as investigational or for research. Performed By: #### L [id number], OA, 6303-2, 22499-0, 12167-5 ####[facility] LABIA [id number] [address] [address] [place] aPTT Coag (Bld) [Time] 36.5 s Normal 31.5-38.3 [facility] Comment on above: Order Comment: Speci men Type: BLOOD SPECIMENOrdering Facility: [facility] Address: [address] [place] [address] Result Comment: This test was developed, and its performance characteristics determined by the [facility] Department of Pathology and Laboratory Medicine. It has not been cleared or approved by the FDA. The [facility] of Pathology and Laboratory Medicine is regulated under CLIA as qualified to perform high-complexity testing. This test is used for clinical purposes. It should not be regarded as investigational or for research. Performed By: #### L [id number], HCOAG, 6303-2, 58335-4, 58589-5 ####[facility] [id number] [address] [address] [place] [facility] PLATELET NEUT 0.0 Seconds Normal <1.9 [facility] Comment on above: Order Comment: Speci men Type: BLOOD SPECIMENOrdering Facility: [facility] Address: [address] [place] [address] Result Comment: This test was developed, and its performance characteristics determined by the [facility] Department of Pathology and Laboratory Medicine. It has not been cleared or approved by the FDA. The [facility] of Pathology and Laboratory Medicine is regulated under CLIA as qualified to perform high-complexity testing. This test is used for clinical purposes. It should not be regarded as investigational or for research. Performed By: #### L [id number], HCOAG, 6303-2, 10317-5, 91966-7 ####[facility] LABIA [id number] [address] [address] [place] MANUAL DIFFERENTIAL, BODY FL UIDon 11-11-2024 DIF TTL, BODY FLUID 100 cells counted Normal [facility] Comment on above: Order Comment: Speci men Type: FLUID SPECIMENOrdering Facility: [facility] Address: [address] [place] [id number] Performed By: #### C CBF, [id number] ####[facility] LABCLIA [id number] [address] [place] [address] [place] LYMPH%, BF 37 % High 18-36 [facility] Comment on above: Order Comment: Speci men Type: FLUID SPECIMENOrdering Facility: [facility] Address: [address] [place] [address] Performed By: #### C CBF, [id number] ####[facility] LABCLIA [id number] [address], [place] [address] [place] MACRO%, BF 21 % Low 64-80 [facility] Comment on above: Order Comment: Speci men Type: FLUID SPECIMENOrdering Facility: [facility] Address: [address] [place] [address] Performed By: #### C CBF, [id number] ####[facility] LABCLIA [id number] [address], [facility] [place] MESO %, BF 12 % High 0-2 [facility] Comment on above: Order Comment: Speci men Type: FLUID SPECIMENOrdering Facility: [facility] Address: [address] [place] [address] Performed By: #### C CBF, [id number] ####[facility] LABCLIA [id number] [address], [facility] [place] NEUT%, BF 26 % High 0-1 [facility] Comment on above: Order Comment: Speci men Type: FLUID SPECIMENOrdering Facility: [facility] Address: [address] [place] [address] Performed By: #### C CBF, [id number] ####[facility] LABCLIA [id number] [address] [place] [address] [place] REAC LYMPH %, BF 4 % Normal [facility] Comment on above: Order Comment: Speci men Type: FLUID SPECIMENOrdering Facility: [facility] Address: [address] [place] [address] Performed By: #### C CBF, [id number] ####[facility] LABCLIA [id number] [place] [address] [place] MEDICAL EMERon 11-11-2024 MEDICAL KRISTINA Normal [facility] MEDICAL KRISTINA Normal [facility] Magnesium SerPl-mCncon 11-11 Magnesium [Mass/Vol] 2.3 mg/dL Normal 1.7-2.3 [facility] Comment on above: Order Comment: Speci men Type: BLOOD SPECIMENOrdering Facility: [facility] Address: [address] [place] [address] Performed By: #### 2 276-4, 57438-3, 36493-4, 50656-6, 2777-1, 33052-7 ####[facility] LABCLIA [id number] [place] [address] [place] NURSING PROGon 11-11-2024 NURSING PROG Normal [facility] PLT DEP.AB, UNF. HEPARINon 0 11-11-2024 % REL HIGH DOSE HEP PORCINE 0 % Normal [facility] Comment on above: Order Comment: Speci men Type: BLOOD SPECIMENOrdering Facility: [facility] Address: [address] [place] [address] Performed By: #### S ERORE ####[facility]IESCLIA [id number] [place] [address] % REL LOW DOSE HEP PORCINE 0 % Normal [facility] Comment on above: Order Comment: Speci men Type: BLOOD SPECIMENOrdering Facility: [facility] Address: [address] [place] [address] Performed By: #### S ERORE ####[facility]IESCLIA [id number] [place] [address] SEROTONIN REL INTERP See Note Normal [facility] Comment on above: Order Comment: Speci men Type: BLOOD SPECIMENOrdering Facility: [facility] Address: [address] [place] [address] Result Comment: This patient's specimen demonstrates a [...] Additionalinformation regarding diagnosis of HIT is available [employer].INTERPRETIVE INFORMATION: ABRAHAM, Unfractionated HeparinThis test was developed and its performance characteristicsdetermined by [facility]. It has not been cleared orapproved by the [place] Food and Drug Administration. This test wasperformed in a CLIA certified laboratory and is intended forclinical purposes.Performed By: [facility] [place], [place] [address]Hlmexaqyyi Director: Lizandro Ordonez MD, PhDCLIA Number: [id number] Performed By: #### S ERORE ####[facility] SoshIA [id number] [place] [address] ABRAHAM, UNFRACTIONATED HEPARIN Negative Normal Negative [facility] Comment on above: Order Comment: [facility] Type: BLOOD SPECIMENOrdering Facility: [facility] Address: [address] [place] [address] Performed By: #### S ERORE ####[facility] [id number] [place] [address] PROTHROMBIN GENE PCRon 11-11 PROTHROMBIN GENE MUTATION Normal [facility] Comment on above: Order Comment: [facility] Type: BLOOD SPECIMENOrdering Facility: [facility] Address: [address] [place] [address] Result Comment: Prot hrombin Gene MutationLaboratory Accession Number: [id number]:NORMALInterpretation:The DNA sample is negative for the c.*97G>A variant (legacy yzhc59202J>A) in the 3' untranslated region of the Factor II (F2) gene.This result is not associated with an increased risk of thromboembolicdisease. Thromboembolic disease is a multifactorial disorder and othercauses are not excluded by this result.Methodology:Isolated Genomic DNA from the patient's blood specimen is evaluatedfor the c*97G>A (g.[id number]) variant of the F2 gene [RefSeqNM_000506.53;GRCh38/hg38] by multiplex polymerase chain reaction (PCR)followed by melting curve analysis.Limitations:This assay is designed to detect the c.*97G>A (90706M>A) variant inthe F2 gene. Uncommon variants or single nucleotide polymorphisms mayaffect binding of probes and may rarely result in false negative,false positive or indeterminate results. This assay does not detectother disease-associated rare variants in F2 or other causes ofthromboembolic disease.Disclaimer:This test was developed and its performance characteristics determinedby [facility]'s [facility] and [facility] Department. Ithas not been cleared or approved by the FDA. [facility]'s[facility]ology and Laboratory Medicine Department is regulated under CLIAas certified to perform high-complexity testing. This test is used forclinical purposes. It should not be regarded as investigational or forresearch.Test performed at [facility], [address] [facility], [id number]. CLIA Number: [id number]:1) Inheritied Thrombophilias in . ACOG Practice Bulletin. No.197. [place] [employer]. ObseteGynecol 2018;132:e18-34.2) Elfego SR, Kinsey FR, Jeremy PH, and Bernice RIVERA. A commongenetic variation in the 3'-untranslated region of the prothrombingene is associated with elevated plasma prothrombin levels and anincrease in venous thrombosis. Blood 88:3698-703, 1995.3) Rica I, Justus V, Nayan C, Emily K. Tqvjfowyshl98996N>T: 16 new cases, association with the 23245J>G polymorphism,and literature review. J Thromb Haemost. 2009;9:1585-7.Interpretation performed at remote location (R0A1) by Fifi España MD Performed By: #### P TGEN ####[facility] CAITLIN LEONSCLIEstuardo [id number] [place] [address] [place] PT panel Coag (PPP)on 2024 INR Coag (PPP) [Relative time] 2.3 {INR} High 0.9-1.3 [facility] Comment on above: Order Comment: Speci men Type: BLOOD SPECIMENOrdering Facility: [facility] Address: [address] [place] [address] Result Comment: Sarah min K Antagonist (VKA) Therapeutic Range: INR 2 to 3 (Target INR of 2.5)Note: For patients treated with VKA drugs, such as warfarin, the [place] [employer] 2012 Guideline recommends [...] al. Chest 2012, 141:7S-47SNishbethel RA, et al. [facility] 2017, 70: 252-289 Performed By: #### P TTA, 45480-6 ####[facility] LABCLIA [id number] [place] [address] [place] PT Coag (PPP) [Time] 23.1 s High 9.7-13.0 [facility] Comment on above: Order Comment: Speci men Type: BLOOD SPECIMENOrdering Facility: [facility] Address: [address] [place] [address] Performed By: #### P TTA, 63863-2 ####[facility] LABCLIA [id number] [address] [place] INR Coag (PPP) [Relative time] 2.1 {INR} High 0.9-1.3 [facility] Comment on above: Order Comment: Ezekiel ramirez Type: BLOOD SPECIMENOrdering Facility: [facility] Address: [address] [place] [address] Result Comment: Sarah min K Antagonist (VKA) Therapeutic Range: INR 2 to 3 (Target INR of 2.5)Note: For patients treated with VKA drugs, such as warfarin, the [place] [employer] 2012 Guideline recommends [...] al. Chest 2012, 141:7S-47SHector RA, et al. [facility] 2017, 70: 252-289 Performed By: #### 3 4528-0 ####[facility] [id number] [place] [address] [place] PT Coag (PPP) [Time] 22.0 s High 9.7-13.0 [facility] Comment on above: Order Comment: Ezekiel ramirez Type: BLOOD SPECIMENOrdering Facility: [facility] Address: [address] [place] [address] Performed By: #### 3 4528-0 ####[facility] [id number] [place] [address] [place] PTT, ANTICOAGULANT THERAPYon 11-11-2024 aPTT Coag (PPP) [Time] EXTREMELY ABNORMA L RESULT. No clot detected at 320 seconds. Refer to anticoagulation nomogram for further actions. Critically abnormal (none) [facility] Comment on above: Order Comment: Ezekiel ramirez Type: BLOOD SPECIMENOrdering Facility: [facility] Address: [address] [place] [address] Result Comment: Resu lt rechecked.Sample checked for clot. Performed By: #### P [facility], [address]-2 ####[facility] LABCLIA [id number] [place] [address] [place] Phosphate SerPl-ncon 11-11 Phosphate [Mass/Vol] 2.6 mg/dL Low 2.7-4.8 [facility] Comment on above: Order Comment: Ezekiel james Type: BLOOD SPECIMENOrdering Facility: [facility] Address: [address] [place] [address] Performed By: #### 2 276-4, 19093-6, 88737-7, 31388-7, 2777-1, 57218-5 ####[facility] LABCLIA [id number] [place] [address] [place] Prot Fld-mCncon 11-11-2024 Protein (Body fld) [Mass/Vol] 0.2 g/dL Normal See Comment [facility] Comment on above: Order Comment: Ezekiel ramirez Type: FLUID SPECIMENOrdering Facility: [facility] Address: [address] [place] [address] Result Comment: Sero us fluids: Effusions are [...] document C49A. PAULETTE Diaz: Clinical Laboratory Standards [place]: 2007. Performed By: #### 1 747-5, 1795-4, 72431-5, 2881-1 ####[facility] LABCLIA [id number] [address] [address] [place] Renal function 2000 panelon 11-11-2024 Albumin [Mass/Vol] 2.4 g/dL Low 3.9-4.9 [facility] Comment on above: Order Comment: Speci men Type: BLOOD SPECIMENOrdering Facility: [facility] Address: [address] [place] [address] Performed By: #### 2 4362-6, 4547 ####[facility] LABCLIA [id number] [place] [id number] [place] Anion gap [Moles/Vol] 10 mmol/L Normal 8-15 [facility] Comment on above: Order Comment: Speci men Type: BLOOD SPECIMENOrdering Facility: [facility] Address: [address] [place] [address] Performed By: #### 2 4362-6, 7 ####[facility] LABCLIA [id number] [address] [address] [place] Calcium [Mass/Vol] 9.3 mg/dL Normal 8.5-10.2 [facility] Comment on above: Order Comment: Speci men Type: BLOOD SPECIMENOrdering Facility: [facility] Address: [address] [place], [place] [address] Performed By: #### 2 4362-6, 7 ####[facility] LABCLIA [id number] [address] [address] [place] Chloride [Moles/Vol] 100 mmol/L Normal 98-107 [facility] Comment on above: Order Comment: Speci men Type: BLOOD SPECIMENOrdering Facility: [facility] Address: [address] [place], [place] [address] Performed By: #### 2 4362-6, 7 ####[facility] LABCLIA [id number] [place] [address] [place] CO2 [Moles/Vol] 13 mmol/L Low 22-30 [facility] Comment on above: Order Comment: Speci men Type: BLOOD SPECIMENOrdering Facility: [facility] Address: [address] [place] [address] Performed By: #### 2 4362-6, 454-7 ####[facility] LABIA [id number] [place] [address] [place] Creatinine [Mass/Vol] 1.26 mg/dL High 0.73-1.22 [facility] Comment on above: Order Comment: Speci men Type: BLOOD SPECIMENOrdering Facility: [facility] Address: [address] [place] [address] Performed By: #### 2 4362-6, 454-7 ####[facility] [id number] [place] [address] [place] Creatinine and Glomerular filtration rate.predicted panel (S/P/Bld) 66 mL/min/1.73m??? Normal >=60 [facility] Comment on above: Order Comment: Speci men Type: BLOOD SPECIMENOrdering Facility: [facility] Address: [address] [place] [address] Result Comment: Patric mated Glomerular Filtration Rate [...] actual GFR. Performed By: #### 2 4362-6, 4541-7 ####[facility] LABIA [id number] [place] [id number] [place] Glucose [Mass/Vol] 255 mg/dL High 74-99 [facility] Comment on above: Order Comment: Speci men Type: BLOOD SPECIMENOrdering Facility: [facility] Address: [address] [place] [address] Result Comment: The [place] Diabetes Association (ADA) provides guidance for cutoff [...] Standards of Medical Care in Diabetes 2016, [place] Diabetes Association. Diabetes Care. 2016.39(Suppl 1). Performed By: #### 2 4362-6, 454-7 ####[facility] LABCLIA [id number] [place] [address] [place] Phosphate [Mass/Vol] 2.5 mg/dL Low 2.7-4.8 [facility] Comment on above: Order Comment: Speci men Type: BLOOD SPECIMENOrdering Facility: [facility] Address: [address] [place], [place] [address] Performed By: #### 2 4362-6, 4541-7 ####[facility] LABIA [id number] [place] [id number] [place] Potassium [Moles/Vol] 4.4 mmol/L Normal 3.7-5.1 [facility] Comment on above: Order Comment: Speci men Type: BLOOD SPECIMENOrdering Facility: [facility] Address: [address] [place], [place] [address] Performed By: #### 2 4362-6, 7 ####[facility] LABCLIA [id number] [facility] [address] [address] [place] Sodium [Moles/Vol] 123 mmol/L Low 136-144 [facility] Comment on above: Order Comment: Speci men Type: BLOOD SPECIMENOrdering Facility: [facility] Address: [address] [place] [address] Performed By: #### 2 4362-6, 4542-7 ####[facility] LABCLIA [id number] [place] [address] [place] Urea nitrogen [Mass/Vol] 21 mg/dL Normal 9-24 [facility] Comment on above: Order Comment: Speci men Type: BLOOD SPECIMENOrdering Facility: [facility] Address: [address] [place] [address] Performed By: #### 2 4362-6, 4542-7 ####[facility] LABIA [id number] [place] [address] [place] Retics #on 11-11-2024 Reticulocytes (Bld) [#/Vol] 0.23203 10*3/uL High 0.018-0.100 [facility] Comment on above: Order Comment: Speci men Type: BLOOD SPECIMENOrdering Facility: [facility] Address: [address] [place] [address] Performed By: #### I PFR, 71213-1, 64778-5 ####[facility] LABIA [id number] [place] [address] [place] Reticulocytes (Bld) [#/Vol]o n 11-11-2024 Reticulocytes/100 RBC (Bld) 4.1 % High 0.4-2.0 [facility] Comment on above: Order Comment: Speci men Type: BLOOD SPECIMENOrdering Facility: [facility] Address: [address] [place] [address] Performed By: #### I PFR, 07808-1, 51322-2 ####[facility] LABIA [id number] [place] [address] [place] SEPSIS LACTATEon 11-11-2024 Lactate [Moles/Vol] 3.4 mmol/L High <=2.0 [facility] Comment on above: Order Comment: Speci men Type: BLOOD SPECIMENOrdering Facility: [facility] Address: [address] [place] [address] Performed By: #### S LACT ####[facility] LABCLIA [id number] [place] [address] [place] Lactate [Moles/Vol] 3.6 mmol/L High <=2.0 [facility] Comment on above: Order Comment: Speci men Type: BLOOD SPECIMENOrdering Facility: [facility] Address: [address] [place] [address] Performed By: #### S LACT ####[facility] LABCLIA [id number] [place] [address] [place] Screen dRVVTon 11-11-2024 dRVVT Coag (PPP) [Time] 42.6 s Normal 32.0-45.7 [facility] Comment on above: Order Comment: Speci men Type: BLOOD SPECIMENOrdering Facility: [facility] Address: [address] [place] [address] Performed By: #### L [id number], OA, 6303-2, 32147-3, 61508-3 ####[facility] LABCLIA [id number] [place] [address] [place] US ABD LIVER VASCULARon - US ABD LIVER VASCULAR Normal [facility] US DOPPLER COMPLETEon 2024 US DOPPLER COMPLETE Normal [facility] XR ABDOMEN 1V SUPINEon 11-11 XR ABDOMEN 1V SUPINE Normal [facility] XR CHEST 1V FRONTAL PORTon 0 11-11-2024 XR CHEST 1V FRONTAL PORT Normal [facility] XR CHEST 1V FRONTAL PORT Normal [facility] aPTT PPPon 11-11-2024 aPTT Coag (PPP) [Time] 41.7 s High 23.0-32.4 [facility] Comment on above: Order Comment: Speci men Type: BLOOD SPECIMENOrdering Facility: [facility] Address: [address] [place] [address] Performed By: #### 3 255-7, 07400-5 ####[facility] LABCLIA [id number] [place] [address] [place] dRVVT Coag (PPP) [Time]on dRVVT factor substitution immediately after 1:2 addition of normal plasma Coag (PPP) [Time] 35.4 seconds Normal 32.0-45.7 [facility] Comment on above: Order Comment: Speci men Type: BLOOD SPECIMENOrdering Facility: [facility] Address: [address] [place] [address] Performed By: #### L [id number], HCOAG, 6303-2, 15847-3, 63004-4 ####[facility] [facility] LAB[facility] [id number] [place] [address] [place] dRVVT/dRVVT.excess phospholipid Coag (PPP) [Ratio] 0.91 Normal <1.32 [facility] Comment on above: Order Comment: Speci men Type: BLOOD SPECIMENOrdering Facility: [facility] Address: [address] [place] [address] Performed By: #### L [id number], HCOAG, 6303-2, [id number], [id number] ####[facility] LABIA [id number] [place] [address] [place] ALP [Catalytic activity/Vol] Ordered By: Kathie Lemos on 11-10-2024 Serum or plasma alkaline phosphatase measurement 310 U/L High 40-129 [facility] ALT [Catalytic activity/Vol] Ordered By: Kathie Lemos on 11-10-2024 Serum or plasma alanine aminotransferase (ALT) measurement 36 U/L <47 [facility] Absolute lymphocyte countOrd ered By: Kathie Lemos on 11-10-2024 Lymphocytes Auto (Unsp spec) [#/Vol] 1.30 10*3/uL 0.83-4.51 [facility] Absolute neutrophil countOrd ered By: Kathie Lemos on 11-10-2024 Absolute neutrophil count 16.2 X10^3/uL High 2.0-7.7 [facility] Albumin [Mass/Vol]Ordered By : Kathie Lemos on 11-10-2024 Serum or plasma albumin measurement (mass/volume) 2.3 g/dL Low 3.5-5.0 [facility] Albumin/Globulin [Mass ratio ]Ordered By: Kathie Lemos on 11-10-2024 Serum or plasma albumin/globulin mass ratio 0.7 RATIO Low 0.9-2.4 [facility] Anion gap [Moles/Vol]Ordered By: Kathie Lemos on 11-10-2024 Anion gap in Serum or Plasma 11 5-15 [facility] Anion gap in Serum or Plasma Ordered By: Kathie Lemos on 11-10-2024 Anion gap [Moles/Vol] 11 mmol/L 5-15 [facility] Automated lymphocyte count a s percentage of total leukocytesOrdered By: Kathie Lemos on 11-10-2024 Lymphocytes/100 WBC Auto (Unsp spec) 6.6 % Low 19-41 [facility] BUN/creatinine ratioOrdered By: Kathie Lemos on 11-10-2024 Urea nitrogen/Creatinine [Mass ratio] 16.6 mg/mg 10-20 [facility] BUN/creatinine ratio 16.6 RATIO 10-20 [facility] Bacteria LM.HPF (Urine sed) [#/Area]Ordered By: Kathie Lemos on 11-10-2024 Urine sediment bacteria count by microscopy (number/high power field) 2+ /hpf None Seen [facility] Basophil percentageOrdered B y: Kathie Lemos on 11-10-2024 Basophils/100 WBC (Bld) 0.5 % 0-1 [facility] Basophil percentage 0.5 % 0-1 [facility] Bilirubin Test strip Ql (U)O rdered By: Kathie Lemos on 11-10-2024 Bilirubin Ql (U) Negative Negative [facility] Urine total bilirubin detection by test strip Negative Negative [facility] Bilirubin, totalOrdered By: Kathie Lemos on 11-10-2024 Bilirubin [Mass/Vol] 2.09 mg/dL High 0.00-1.30 [facility] Bilirubin, total 2.09 mg/dL High 0.00-1.30 [facility] Calcium [Mass/Vol]Ordered By : Kathie Lemos on 11-10-2024 Serum or plasma calcium measurement (mass/volume) 9.2 mg/dL 7.6-11.0 [facility] Carbon dioxide, total [Moles /volume] in Central venous bloodOrdered By: Kathie Lemos on 11-10-2024 CO2 [Moles/Vol] 13.3 mmol/L Low 21.0-32.0 [facility] Carbon dioxide, total [Moles/volume] in Central venous blood 13.3 mmol/L Low 21.0-32.0 [facility] Chloride assayOrdered By: Paulette Lemos on 11-10-2024 Chloride [Moles/Vol] 99 mmol/L 98-108 [facility] Chloride assay 99 mmol/L 98-108 [facility] Clarity (U)Ordered By: Kathie Lemos on 11-10-2024 Urine clarity Turbid Clear [facility] Color (U)Ordered By: Kathie bhatt on 11-10-2024 Urine color determination Brown Yellow [facility] Creatinine [Mass/Vol]Ordered By: Kathie Lemos on 11-10-2024 Serum creatinine measurement (mass/volume) 1.13 mg/dL 0.70-1.20 [facility] Eosinophil percentageOrdered By: Kathie Lemos on 11-10-2024 Eosinophils/100 WBC (Bld) 1.9 % 0-5 [facility] Eosinophil percentage 1.9 % 0-5 [facility] Erythrocyte distribution wid th (RBC) [Ratio]Ordered By: Kathie Lemos on 11-10-2024 Erythrocyte distribution width ratio 18.1 % High 11.6-14.6 [facility] Erythrocyte distribution width standard deviation 62.1 fl High 35.1-43.9 [facility] Erythrocyte distribution wid th ratioOrdered By: Kathie Lemos on 11-10-2024 Erythrocyte distribution width (RBC) [Ratio] 18.1 % High 11.6-14.6 [facility] Erythrocyte distribution wid th standard deviationOrdered By: Kathie Lemos on 11-10-2024 Erythrocyte distribution width (RBC) [Ratio] 62.1 fl High 35.1-43.9 [facility] Estimation of creatinine gregorio aranceOrdered By: Kathie Lemos on 11-10-2024 Estimation of creatinine clearance 88.23 ml/min 50-250 [facility] GFR/1.73 sq M.predicted niki g non-blacks MDRD (S/P/Bld) [Vol rate/Area]Ordered By: Kathie Lemos on 11-10-2024 Glomerular filtration rate (GFR) estimation/1.73 sq m using serum, plasma, or whole b 75 >60 [facility] Glomerular filtration rate ( GFR) estimation/1.73 sq m using serum, plasma, or whole bOrdered By: Kathie Lemos on 11-10-2024 GFR/1.73 sq M.predicted among non-blacks MDRD (S/P/Bld) [Vol rate/Area] 75 mL/min/{1.73_m2} >60 [facility] Glucose Ql (U)Ordered By: Paulette Lemos on 11-10-2024 Urine glucose detection Normal mg/dl Normal [facility] Glucose [Mass/Vol]Ordered By : Kathie Lemos on 11-10-2024 Serum glucose measurement (mass/volume) 298 mg/dL High 70-99 [facility] Glucose measurement at bedsi deOrdered By: Kathie Lemos on 11-10-2024 Glucose [Mass/Vol] 265 mg/dL High 74-106 [facility] Glucose measurement at bedside 265 mg/dL High 74-106 [facility] Hematocrit Auto (Bld) [Volum e fraction]Ordered By: Kathie Lemos on 11-10-2024 Hematocrit (Bld) [Volume fraction] 32.9 % Low 40-54 [facility] Automated blood hematocrit (percentage) 32.9 % Low 40-54 [facility] Hemoglobin measurementOrdere d By: Kathie Lemos on 11-10-2024 Hemoglobin (Bld) [Mass/Vol] 11.3 g/dL Low 13.0-16.5 [facility] Hemoglobin measurement 11.3 g/dL Low 13.0-16.5 [facility] Immature granulocytes/100 WB C Auto (Bld)Ordered By: Kathie Lemos on 11-10-2024 Immature granulocytes/100 WBC (Bld) 1.100 % High 0.0-0.9 [facility] Automated immature granulocyte percentage 1.100 % High 0.0-0.9 [facility] International normalized rat io (INR) calculationOrdered By: Kathie Lemos on 11-10-2024 International normalized ratio (INR) calculation 3.1 [facility] Ketones Test strip Ql (U)Ord ered By: Kathie Lemos on 11-10-2024 Ketones Ql (U) 5 mg/dl High Negative [facility] Urine ketones detection by test strip 5 mg/dl High Negative [facility] Leukocyte esterase Test stri p Ql (U)Ordered By: Kathie Lemos on 11-10-2024 Urine leukocyte esterase detection by dipstick 500 /ul High Negative [facility] Lymphocytes Auto (Unsp spec) [#/Vol]Ordered By: Kathie Lemos on 11-10-2024 Absolute lymphocyte count 1.30 X10^3/uL 0.83-4.51 [facility] Lymphocytes/100 WBC Auto (Un sp spec)Ordered By: Kathie Lemos on 11-10-2024 Automated lymphocyte count as percentage of total leukocytes 6.6 % Low 19-41 [facility] MCV (RBC) [Entitic vol]Order ed By: Kathie Lemos on 11-10-2024 MCV (mean corpuscular volume) determination 92.7 fL 80-94 [facility] MCV (mean corpuscular volume ) determinationOrdered By: Kathie Lemos on 11-10-2024 MCV (RBC) [Entitic vol] 92.7 fL 80-94 [facility] Mean corpuscular hemoglobin (MCH) determinationOrdered By: Kathie Lemos on 11-10-2024 MCH (RBC) [Entitic mass] 31.8 pg 27.0-32.0 [facility] Mean corpuscular hemoglobin (MCH) determination 31.8 pg 27.0-32.0 [facility] Mean corpuscular hemoglobin concentration (MCHC) determinationOrdered By: Kathie Lemos on 11-10-2024 Mean corpuscular hemoglobin concentration (MCHC) determination 34.3 g/dL 32-36 [facility] Mean platelet volume determi nationOrdered By: Kathie Lemos on 11-10-2024 Mean platelet volume determination 12.2 fl High 6.2-12.0 [facility] Microscopic analysis of urin e for red blood cells (RBC)Ordered By: Kathie Lemos on 11-10-2024 Microscopic analysis of urine for red blood cells (RBC) > 100 SEEN /hpf 0-5 [facility] Monocyte percentageOrdered B y: Kathie Lemos on 11-10-2024 Monocytes/100 WBC (Bld) 6.9 % 0-10 [facility] Monocyte percentage 6.9 % 0-10 [facility] Mucus LM Ql (Urine sed)Order ed By: Kathie Lemos on 11-10-2024 Mucus Ql (Urine sed) 0 SEEN /hpf [facility] Neutrophil percentageOrdered By: Kathie Lemos on 11-10-2024 Neutrophils/100 WBC (Bld) 83.0 % High 47-70 [facility] Neutrophil percentage 83.0 % High 47-70 [facility] Nitrite Test strip Ql (U)Ord ered By: Kathie Lemos on 11-10-2024 Nitrite Ql (U) Positive High Negative [facility] Urine nitrite test by dipstick Positive High Negative [facility] No Panel InformationOrdered By: Kathie Lemos on 11-10-2024 58 U/L High <38 [facility] Nucleated red blood cell per centageOrdered By: Kathie Lemos on 11-10-2024 Nucleated red blood cell percentage 0 % 0-5 [facility] Platelet countOrdered By: Paulette Lemos on 11-10-2024 Platelets (Bld) [#/Vol] 58 10*3/uL Low 150-450 [facility] Platelet count 58 K/mm3 Low 150-450 [facility] Potassium (Unsp spec) [Mass/ Vol]Ordered By: Kathie Lemos on 11-10-2024 Potassium measurement (mass/volume) 3.6 mmol/L 3.3-5.1 [facility] Potassium measurement (mass/ volume)Ordered By: Kathie Lemos on 11-10-2024 Potassium (Unsp spec) [Mass/Vol] 3.6 mmol/L 3.3-5.1 [facility] Protein Test strip Ql (U)Ord ered By: Kathie Lemos on 11-10-2024 Protein Ql (U) 500 mg/dl High Negative [facility] Urine protein assay by test strip, semi-quantitative 500 mg/dl High Negative [facility] Prothrombin timeOrdered By: Kathie Lemos on 11-10-2024 PT Coag (PPP) [Time] 32.3 s High 11.7-14.9 [facility] Prothrombin time 32.3 SECONDS High 11.7-14.9 [facility] RBC Auto (Bld) [#/Vol]Ordere d By: Kathie Lemos on 11-10-2024 RBC (Bld) [#/Vol] 3.55 10*6/uL Low 4.6-6.2 [facility] Automated blood erythrocyte count 3.55 M/mm3 Low 4.6-6.2 [facility] Serum creatinine measurement (mass/volume)Ordered By: Kathie Lemos on 11-10-2024 Creatinine [Mass/Vol] 1.13 mg/dL 0.70-1.20 [facility] Serum globulin measurementOr dered By: Kathie Lemos on 11-10-2024 Globulin (S) [Mass/Vol] 3.4 g/dL 2.2-4.2 [facility] Serum globulin measurement 3.4 g/dL 2.2-4.2 [facility] Serum glucose measurement (m ass/volume)Ordered By: Kathie Lemos on 11-10-2024 Glucose [Mass/Vol] 298 mg/dL High 70-99 [facility] Serum or plasma alanine thomas otransferase (ALT) measurementOrdered By: Kathie Lemos on 11-10-2024 ALT [Catalytic activity/Vol] 36 U/L <47 [facility] Serum or plasma albumin roosevelt urement (mass/volume)Ordered By: Kathie Lemos on 11-10-2024 Albumin [Mass/Vol] 2.3 g/dL Low 3.5-5.0 [facility] Serum or plasma albumin/glob ulin mass ratioOrdered By: Kathie Lemos on 11-10-2024 Albumin/Globulin [Mass ratio] 0.7 {ratio} Low 0.9-2.4 [facility] Serum or plasma alkaline kendrick sphatase measurementOrdered By: Kathie Lemos on 11-10-2024 ALP [Catalytic activity/Vol] 310 U/L High 40-129 [facility] Serum or plasma calcium roosevelt urement (mass/volume)Ordered By: Kathie Lemos on 11-10-2024 Calcium [Mass/Vol] 9.2 mg/dL 7.6-11.0 [facility] Serum or plasma urea nitroge n measurement (mass/volume)Ordered By: Kathie Lemos on 11-10-2024 Urea nitrogen [Mass/Vol] 19 mg/dL - [facility] Sodium levelOrdered By: Javed Lemos on 11-10-2024 Sodium [Moles/Vol] 123 mmol/L Low 133-145 [facility] Sodium level 123 mmol/L Low 133-145 [facility] Specific gravity (U) [Rel de nsity]Ordered By: Kathie Lemos on 11-10-2024 Urine specific gravity measurement 1.015 1.002-1.030 [facility] Squamous epithelial cells de tection in urine sediment by light microscopyOrdered By: Kathie Lemos on 11-10-2024 Epithelial cells.squamous LM Ql (Urine sed) 0 SEEN /hpf 0-5 [facility] Squamous epithelial cells detection in urine sediment by light microscopy 0 SEEN /hpf [facility] Total proteinOrdered By: Tyree Lemos on 11-10-2024 Protein [Mass/Vol] 5.7 g/dL Low 5.9-8.4 [facility] Total protein 5.7 g/dL Low 5.9-8.4 [facility] Urea nitrogen [Mass/Vol]Orde red By: Kathie Lemos on 11-10-2024 Serum or plasma urea nitrogen measurement (mass/volume) 19 mg/dL 11-20 [facility] Urine blood detectionOrdered By: Kathie Lemos on 11-10-2024 Urine blood detection 250 /ul High Negative [facility] Urine clarityOrdered By: Tyree Lemos on 11-10-2024 Clarity (U) Turbid Clear [facility] Urine color determinationOrd ered By: Kathie Lemos on 11-10-2024 Color (U) Brown Yellow [facility] Urine glucose detectionOrder ed By: Kathie Lemos on 11-10-2024 Glucose Ql (U) Normal mg/dl Normal [facility] Urine leukocyte esterase det ection by dipstickOrdered By: Kathie Lemos on 11-10-2024 Leukocyte esterase Test strip Ql (U) 500 /ul High Negative [facility] Urine pHOrdered By: Kathie garcias on 11-10-2024 pH (U) 6.5 [pH] 5.0 - 8.0 [facility] Urine sediment bacteria coun t by microscopy (number/high power field)Ordered By: Kathie Lemos on 11-10-2024 Bacteria LM.HPF (Urine sed) [#/Area] 2 /[HPF] None Seen [facility] Urine specific gravity measu rementOrdered By: Kathie Lemos on 11-10-2024 Specific gravity (U) [Rel density] 1.015 1.002-1.030 [facility] Urine urobilinogen measureme ntOrdered By: Kathie Lemos on 11-10-2024 Urobilinogen Ql (U) 1 mg/dl High Normal [facility] Urobilinogen Ql (U)Ordered B y: Kathie Lemos on 11-10-2024 Urine urobilinogen measurement 1 mg/dl High Normal [facility] White blood cell (WBC) count Ordered By: Kathie Lemos on 11-10-2024 WBC (Bld) [#/Vol] 19.6 10*3/uL High 4.4-11.0 [facility] White blood cell (WBC) count 19.6 K/mm3 High 4.4-11.0 [facility] White blood cell countOrdere d By: Kathie Lemos on 11-10-2024 White blood cell count 5-10 SEEN /hpf 0-5 [facility] White blood cell count 5-10 SEEN /hpf 0-5 [facility] pH (U)Ordered By: Kathie aguilar on 11-10-2024 Urine pH 6.5 5.0 - 8.0 [facility] Blood manual differential co mment interpretation (narrative result)Ordered By: Kathie Lemos on 11-09-2024 Manual differential comment Marco Antonio (Bld) [Interp] SCANNED [facility] Lactic acid measurementOrder ed By: Kathie Lemos on 11-09-2024 Lactic acid measurement 2.4 mmol/L High 0.0-2.0 [facility] Manual differential comment Marco Antonio (Bld) [Interp]Ordered By: Kathie Lemos on 11-09-2024 Blood manual differential comment interpretation (narrative result) SCANNED [facility] Pathologist review Marco Antonio (Unsp spec) [Interp]Ordered By: Kathie Lemos on 11-09-2024 Review by pathologist N/A [facility] Platelet estimateOrdered By: Kathie Lemos on 11-09-2024 Platelets LM Ql (Bld) MKD DEC ADEQ [facility] Platelets LM Ql (Bld)Ordered By: Kathie Lemos on 11-09-2024 Platelet estimate MKD DEC ADEQ [facility] Review by pathologistOrdered By: Kathie Lemos on 11-09-2024 Pathologist review Marco Antonio (Unsp spec) [Interp] N/A [facility] Venous blood ammonia measure mentOrdered By: Kathie Lemos on 11-09-2024 Ammonia (P) [Moles/Vol] 104.0 umol/L High 16-60 [facility] Venous blood ammonia measurement 104.0 umol/L High 16-60 [facility] Lipase measurementOrdered By : Kathie Lemos on 11-08-2024 Lipase measurement 94 U/L High 13-75 [facility] Magnesium (Unsp spec) [Mass/ Vol]Ordered By: Kathie Lemos on 11-08-2024 Magnesium measurement (mass/volume) 2.4 mg/dL High 1.5-2.2 [facility] Magnesium measurement (mass/ volume)Ordered By: Kathie Lemos on 11-08-2024 Magnesium (Unsp spec) [Mass/Vol] 2.4 mg/dL High 1.5-2.2 [facility] Serum phosphorus measurement Ordered By: Kathie Lemos on 11-08-2024 Serum phosphorus measurement 1.6 mg/dL Low 2.7-4.5 [facility] Blood polychromasia detectio n by light microscopyOrdered By: Hill Acuña on 11-07-2024 Polychromasia LM Ql (Bld) 1+ [facility] Blood polychromasia detection by light microscopy 1+ [facility] Ovalocyte detectionOrdered B y: Hill Acuña on 11-07-2024 Ovalocytes LM Ql (Bld) 1+ [facility] Band form neutrophils/100 WB C (Bld)Ordered By: Hill Acuña on 11-03-2024 Blood band neutrophil count as percentage of total leukocytes 6 % High 0-5 [facility] Blood band neutrophil count as percentage of total leukocytesOrdered By: Hill Acuña on 11-03-2024 Band form neutrophils/100 WBC (Bld) 6 % High 0-5 [facility] Blood eosinophils/100 leukoc ytesOrdered By: Hill Acuña on 11-03-2024 Eosinophils/100 WBC (Bld) 1 % 0-5 [facility] Blood lymphocytes/100 leukoc ytesOrdered By: Hill Acuña on 11-03-2024 Lymphocytes/100 WBC (Bld) 2 % Low 19-41 [facility] Blood lymphocytes/100 leukocytes 2 % 0-10 [facility] Blood metamyelocytes/100 bri kocytesOrdered By: Hill Acuña on 11-03-2024 Metamyelocytes/100 WBC (Bld) 1 % 0-1 [facility] Blood metamyelocytes/100 leukocytes 1 % 0-5 [facility] Blood monocytes/100 leukocyt esOrdered By: Hill Acuña on 11-03-2024 Monocytes/100 WBC (Bld) 2 % 0-10 [facility] Blood segmented neutrophils/ 100 leukocytesOrdered By: Hill Acuña on 11-03-2024 Segmented neutrophils/100 WBC (Bld) 85 % High 47-70 [facility] Cells counted Molgen (Bld/Ti ss) [#]Ordered By: Hill Acuña on 11-03-2024 Total cell count 100 MANUAL DIFF [facility] Segmented neutrophils/100 WB C (Bld)Ordered By: Hill Acuña on 11-03-2024 Blood segmented neutrophils/100 leukocytes 85 % High 47-70 [facility] Total cell countOrdered By: Hill Acuña on 11-03-2024 Cells counted Molgen (Bld/Tiss) [#] 100 MANUAL DIFF [facility] Erythrocyte morphology asses smentOrdered By: Hill Acuña on 11-02-2024 RBC morphology finding Nom (Bld) NORM C+C NORMAL NORM C&C [facility] RBC morphology finding Nom ( Bld)Ordered By: Hill Acuña on 11-02-2024 Erythrocyte morphology assessment NORM C+C NORMAL NORM C&C [facility] Trough vancomycin levelOrder ed By: Buster Fuchs on 11-01-2024 Vancomycin trough [Mass/Vol] 17.7 ug/mL High 5.0-15.0 [facility] Vancomycin trough [Mass/Vol] Ordered By: Buster Fuchs on 11-01-2024 Trough vancomycin level 17.7 ug/mL High 5.0-15.0 [facility] Activated partial thrombopla stin time (aPTT) in platelet poor plasma by coagulation aOrdered By: Buster Fuchs on 10-31-2024 aPTT Coag (PPP) [Time] 42.7 s High 24.1-36.2 [facility] [facility] aPTT Coag (PPP) [Time]Ordere d By: Buster Fuchs on 10-31-2024 Activated partial thromboplastin time (aPTT) in platelet poor plasma by coagulation a 42.7 Seconds High 24.1-36.2 [facility] [place] C. difficile Ql (Stl)Ordered By: Hill Wright on 10-30-2024 Stool Clostridium difficile detection Toxigenic C. difficile Abnormal [facility] Clostridium difficile detect ion by polymerase chain reactionOrdered By: Hill Wright on 10-30-2024 C. difficile DNA ANANTH+probe Ql (Unsp spec) [facility] [place] Stool Clostridium difficile detectionOrdered By: Hill Wright on 10-30-2024 C. difficile Ql (Stl) Toxigenic C. difficile Abnormal [facility] [place] Stool lactoferrin detection by immunoassayOrdered By: Hill Wright on 10-30-2024 Lactoferrin IA Ql (Stl) [facility] Arterial patency Wrist arter y --pre arterial punctureOrdered By: Buster Fuchs on 10-29-2024 Assessment of wrist artery patency prior to arterial puncture Positive [facility] [place] Assessment of wrist artery p atency prior to arterial punctureOrdered By: Buster Fuchs on 10-29-2024 Arterial patency Wrist artery --pre arterial puncture Positive [facility] [place] Base excess Calc (BldV) [Mol es/Vol]Ordered By: Buster Fuchs on 10-29-2024 Blood base excess determination -10 mmol/L [facility] Blood base excess determinat ionOrdered By: Buster Fuchs on 10-29-2024 Base excess Calc (BldV) [Moles/Vol] -10 mmol/L Low -2-2 [facility] [place] Blood bicarbonate measuremen tOrdered By: Buster Fuchs on 10-29-2024 HCO3 (Bld) [Moles/Vol] 15.2 mmol/L Low 22- [facility] Blood bicarbonate measurement 15.2 mmol/L Low 22-26 [facility] [place] Blood cultureOrdered By: Hugo Wright on 10-29-2024 Bacteria identified Cx Nom (Bld) No growth in 5 days. [facility] [place] Blood culture No growth in 5 days. [facility] Calculated very low density lipoprotein (VLDL) cholesterol measurementOrdered By: Hill Wright on 10-29-2024 Calculated very low density lipoprotein (VLDL) cholesterol measurement 17 mg/dL 5-40 [facility] [place] Calculated very low density lipoprotein (VLDL) cholesterol measurement 17 mg/dL 5-40 [facility] [place] Cholesterol [Mass/Vol]Ordere d By: Hill Wright on 10-29-2024 Serum or plasma cholesterol measurement (mass/volume) 132 mg/dL <201 [facility] [place] Cholesterol in HDL [Mass/Vol ]Ordered By: Hill Wright on 10-29-2024 Serum or plasma cholesterol in HDL measurement (mass/volume) 33 mg/dL Low >40 [facility] [place] Determination of fraction of inspired oxygenOrdered By: Buster Fuchs on 10-29-2024 Determination of fraction of inspired oxygen 21.0 [facility] [place] Electrocardiogram reportOrde red By: Jeovanny Ramos on 10-29-2024 EKG study [facility] [place] Other Phone: LDL calc ser/plasOrdered By: Hill Wright on 10-29-2024 Cholesterol in LDL [Mass/Vol] 83 mg/dL [facility] [place] Measurement, pHOrdered By: Stacy Fuchs on 10-29-2024 pH (Unsp spec) 7.39 [pH] 7.35-7.45 [facility] [place] No Panel InformationOrdered By: Buster Fuchs on 10-29-2024 ART [facility] L Radial [facility] Not entered [facility] Room Air [facility] No Panel InformationOrdered By: Hill Wright on 10-29-2024 10.20 ug/dL 6.02-18.40 [facility] [place] Osmolality, serumOrdered By: Hill Wright on 10-29-2024 Osmolality, serum 292 mOsm/KG 275-295 [facility] Oxygen saturation measuremen tOrdered By: Buster Fuchs on 10-29-2024 Oxygen saturation measurement 93 % Low 95-99 [facility] [place] Partial pressure of carbon d ioxide measurementOrdered By: Buster Fuchs on 10-29-2024 Partial pressure of carbon dioxide measurement 25.1 mmHg Low 35-45 [facility] [place] Partial pressure of oxygen m easurementOrdered By: Buster Fuchs on 10-29-2024 Partial pressure of oxygen measurement 67 mmHG Low 75-100 [facility] [place] Screening total cholesterol/ high density lipoprotein (HDL) cholesterol ratioOrdered By: Hill Wright on 10-29-2024 Screening total cholesterol/high density lipoprotein (HDL) cholesterol ratio 4.04 [facility] [place] Serum or plasma cholesterol in HDL measurement (mass/volume)Ordered By: Hill Wright on 10-29-2024 Cholesterol in HDL [Mass/Vol] 33 mg/dL Low >40 [facility] [place] Serum or plasma cholesterol measurement (mass/volume)Ordered By: Hill Wright on 10-29-2024 Cholesterol [Mass/Vol] 132 mg/dL <201 [facility] Total carbon dioxide measure mentOrdered By: Buster Fuchs on 10-29-2024 CO2 [Moles/Vol] 16 mmol/L [facility] [place] Total carbon dioxide measurement 16 mmol/L [facility] [place] Triglycerides measurementOrd ered By: Hill Wright on 10-29-2024 Triglycerides measurement 83 mg/dL [facility] [place] Urine cultureOrdered By: Viraj Dunn on 10-29-2024 Bacteria identified Cx Nom (U) Culture exhibits no growth. [facility] [place] Urine culture Culture exhibits no growth. [facility] pH (Unsp spec)Ordered By: Marianna Fuchs on 10-29-2024 Measurement, pH 7.39 7.35-7.45 [facility] [place] Absolute neutrophil countOrd ered By: Alber Dunn on 10-28-2024 Neutrophils (Bld) [#/Vol] 19.0 10*3/uL High 2.0-7.7 [facility] [place] Amorphous sediment LM Ql (Ur ine sed)Ordered By: Alber Dunn on 10-28-2024 Amorphous sediment detection in urine sediment by light microscopy 1+ URATE [facility] [place] Amorphous sediment detection in urine sediment by light microscopyOrdered By: Alber Dunn on 10-28-2024 Amorphous sediment LM Ql (Urine sed) 1+ URATE [facility] [place] Anion gap in Serum or Plasma Ordered By: Alber Dunn on 10-28-2024 Anion gap [Moles/Vol] 17 mmol/L High 5-15 [facility] BUN/creatinine ratioOrdered By: Alber Dunn on 10-28-2024 Urea nitrogen/Creatinine [Mass ratio] 18.8 mg/mg 10-20 [facility] [place] Basophil percentageOrdered B y: Alber Dunn on 10-28-2024 Basophils/100 WBC (Bld) 0.2 % 0-1 [facility] Bilirubin Test strip Ql (U)O rdered By: Alber Dunn on 10-28-2024 Bilirubin Ql (U) 1 mg/dL High Negative [facility] [place] Comment on above: COLOR OF URINE MAY A FFECT DIPSTICK RESULTS. Bilirubin, totalOrdered By: Alber Dunn on 10-28-2024 Bilirubin [Mass/Vol] 1.86 mg/dL High 0.00-1.30 [facility] Carbon dioxide, total [Moles /volume] in Central venous bloodOrdered By: Alber Dunn on 10-28-2024 CO2 [Moles/Vol] 12.4 mmol/L Low 21.0-32.0 [facility] [place] Chloride assayOrdered By: Hernesto Dunn on 10-28-2024 Chloride [Moles/Vol] 98 mmol/L 98-108 [facility] Eosinophil percentageOrdered By: Alber Dunn on 10-28-2024 Eosinophils/100 WBC (Bld) 1.4 % 0-5 [facility] [place] Epithelial cells.squamous LM Ql (Urine sed)Ordered By: Alber Dunn on 10-28-2024 Epithelial cells.squamous LM.HPF (Urine sed) [#/Area] 5 /[HPF] 0-5 [facility] [place] Erythrocyte distribution wid th ratioOrdered By: Alber Dunn on 10-28-2024 Erythrocyte distribution width (RBC) [Ratio] 19.1 % High 11.6-14.6 [facility] [place] Erythrocyte distribution wid th standard deviationOrdered By: Alber Dunn on 10-28-2024 Erythrocyte distribution width (RBC) [Entitic vol] 62.7 fL High 35.1-43.9 [facility] [place] GFR/1.73 sq M.predicted niki g non-blacks MDRD (S/P/Bld) [Vol rate/Area]Ordered By: Alber Dunn on 10-28-2024 Estimated GFR (MDRD) Non-Af Amer 62 >60 [facility] [place] Comment on above: mL/min/1.73m2 CKD-EP I Creatinine Equation (2020) Glucose Ql (U)Ordered By: Hernesto Dunn on 10-28-2024 Glucose (U) [Mass/Vol] 50 mg/dL High Normal [facility] HbA1c (Bld) [Mass fraction]O rdered By: Hill Wright on 10-28-2024 Hemoglobin A1c percentage 6.7 % >5.7 [facility] [place] Hematocrit Auto (Bld) [Volum e fraction]Ordered By: Alber Dunn on 10-28-2024 Hematocrit (Bld) [Volume fraction] 37.3 % Low 40-54 [facility] [place] Hemoglobin A1c percentageOrd ered By: Hill Wright on 10-28-2024 HbA1c (Bld) [Mass fraction] 6.7 % >5.7 [facility] [place] Hemoglobin measurementOrdere d By: Alber Dunn on 10-28-2024 Hemoglobin (Bld) [Mass/Vol] 12.7 g/dL Low 13.0-16.5 [facility] [place] Immature granulocytes/100 WB C Auto (Bld)Ordered By: Abler Dunn on 10-28-2024 Immature granulocytes/100 WBC (Bld) 1.400 % High 0.0-0.9 [facility] [place] Comment on above: IG% - Immature Granu locytes (promyelocytes, myelocytes and metamyelocytes) > 1% indicates that a LEFT SHIFT is Present. Ketones Test strip Ql (U)Ord ered By: Alber Dunn on 10-28-2024 Ketones Ql (U) 5 mg/dl High Negative [facility] [place] Laboratory - Chemistry and C hemistry - challengeOrdered By: Alber Dunn on 10-28-2024 AST [Catalytic activity/Vol] 48 U/L High <38 [facility] [place] Comment on above: Hemolysis present, R esults could be affected. Laboratory - Hematology and Cell countsOrdered By: Alber Dunn on 10-28-2024 Anisocytosis Ql (Bld) RARE [facility] Lactic acid measurementOrder ed By: Alber Dunn on 10-28-2024 Lactate [Moles/Vol] 4.0 mmol/L High 0.0-2.0 [facility] Comment on above: Critical Result(s) C alled LSPARR at: 2024 by: LAURIE Results read back by same. Critical Result(s) Called at: by: Results read back by same.Previous reported result: 4.0 mmol/LEdited by: AUTOINAnjel on 10/28/24:2041 AMENDED REPORT 10/28/242041 LACTIC ACID previously reported as: 4.0 *H mmol/L Critical Result(s) Called LSPARR at: 2024 by: LAURIE Results read back by same. Lipase measurementOrdered By : Alber Dunn on 10-28-2024 Lipase [Catalytic activity/Vol] 45 U/L 13-75 [facility] [place] Comment on above: Please note:LIPASE r evised reference range effective 22. New Lipase methodology. Expected to produce lower values than the previous assay method. NEW Reference Range: 13 - 75 U/L Lymphocytes Auto (Unsp spec) [#/Vol]Ordered By: Alber Dunn on 10-28-2024 Lymphocytes (Bld) [#/Vol] 1.28 10*3/uL 0.83-4.51 [facility] [place] Lymphocytes/100 WBC Auto (Un sp spec)Ordered By: Alber Dunn on 10-28-2024 Lymphocytes/100 WBC (Bld) 5.6 % Low 19-41 [facility] MCV (mean corpuscular volume ) determinationOrdered By: Alber Dunn on 10-28-2024 MCV (RBC) [Entitic vol] 91.2 fL 80-94 [facility] Macrocytes Ql (Bld)Ordered B y: Alber Dunn on 10-28-2024 Macrocytosis [facility] Macrocytes detection RARE [facility] Macrocytes detectionOrdered By: Alber Dunn on 10-28-2024 Macrocytes Ql (Bld) [facility] Manual differential comment Marco Antonio (Bld) [Interp]Ordered By: Alber Dunn on 10-28-2024 Differential Comment SEE COMMENT [facility] Comment on above: MONOCYTOSIS NOTED Mean corpuscular hemoglobin (MCH) determinationOrdered By: Alber Dunn on 10-28-2024 MCH (RBC) [Entitic mass] 31.1 pg 27.0-32.0 [facility] [place] Mean corpuscular hemoglobin concentration (MCHC) determinationOrdered By: Alber Dunn on 10-28-2024 MCHC (RBC) [Mass/Vol] 34.0 g/dL 32-36 [facility] Mean platelet volume determi nationOrdered By: Alber Dunn on 10-28-2024 Platelet mean volume (Bld) [Entitic vol] 12.0 fL 6.2-12.0 [facility] [place] Microscopic analysis of urin e for red blood cells (RBC)Ordered By: Alber Dunn on 10-28-2024 Urine RBC > 100 SEEN /hpf 0-5 [facility] [place] Monocyte percentageOrdered B y: Alber Dunn on 10-28-2024 Monocytes/100 WBC (Bld) 8.4 % 0-10 [facility] Mucus LM Ql (Urine sed)Order ed By: Alber Dunn on 10-28-2024 Mucus Ql (Urine sed) 0 SEEN /hpf [facility] Neutrophil percentageOrdered By: Alber Dunn on 10-28-2024 Neutrophils/100 WBC (Bld) 83.0 % High 47-70 [facility] [place] Nitrite Test strip Ql (U)Ord ered By: Alber Dunn on 10-28-2024 Nitrite Ql (U) Negative Negative [facility] Nucleated red blood cell per centageOrdered By: Alber Dunn on 10-28-2024 Nucleated RBC/100 WBC (Bld) [Ratio] 0 % 0-5 [facility] [place] Osmolality (U) [Osmolality]O rdered By: Hill Wright on 10-28-2024 Osmolality ur 484 mOsm/KG >50 [facility] [place] Osmolality urOrdered By: Hugo Wright on 10-28-2024 Osmolality (U) [Osmolality] 484 mOsm/KG >50 [facility] Ovalocytes LM Ql (Bld)Ordere d By: Alber Dunn on 10-28-2024 Ovalocytes RARE [facility] Pathologist review Marco Antonio (Unsp spec) [Interp]Ordered By: Alber Dunn on 10-28-2024 Differential Pathologist's Review May tai [facility] Platelet countOrdered By: Hernesto Dunn on 10-28-2024 Platelets (Bld) [#/Vol] 142 10*3/uL Low 150-450 [facility] Platelets LM Ql (Bld)Ordered By: Alber Dunn on 10-28-2024 Platelet Estimate ADEQUATE ADEQ [facility] [place] Potassium (Unsp spec) [Mass/ Vol]Ordered By: Alber Dunn on 10-28-2024 Potassium [Moles/Vol] 4.5 mmol/L 3.3-5.1 [facility] Comment on above: Hemolysis present, R esults could be affected. Protein Test strip Ql (U)Ord ered By: Alber Dunn on 10-28-2024 Protein Ql (U) 500 mg/dl High Negative [facility] RBC Auto (Bld) [#/Vol]Ordere d By: Alber Dunn on 10-28-2024 RBC (Bld) [#/Vol] 4.09 10*6/uL Low 4.6-6.2 [facility] RBC morphology finding Nom ( Bld)Ordered By: Alber Dunn on 10-28-2024 Red Blood Cell Morphology N CHROM NORMAL NORM C&C [facility] Serum creatinine measurement (mass/volume)Ordered By: Alber Dunn on 10-28-2024 Creatinine [Mass/Vol] 1.33 mg/dL High 0.70-1.20 [facility] Serum globulin measurementOr dered By: Alber Dunn on 10-28-2024 Globulin (S) [Mass/Vol] 3.4 g/dL 2.2-4.2 [facility] Serum glucose measurement (m ass/volume)Ordered By: Alber Dunn on 10-28-2024 Glucose [Mass/Vol] 338 mg/dL High 70-99 [facility] Serum or plasma alanine thomas otransferase (ALT) measurementOrdered By: Alber Dunn on 10-28-2024 ALT [Catalytic activity/Vol] 23 U/L <47 [facility] Serum or plasma albumin roosevelt urement (mass/volume)Ordered By: Alber Dunn on 10-28-2024 Albumin [Mass/Vol] 2.5 g/dL Low 3.5-5.0 [facility] Serum or plasma albumin/glob ulin mass ratioOrdered By: Alber Dunn on 10-28-2024 Albumin/Globulin [Mass ratio] 0.7 {ratio} Low 0.9-2.4 [facility] [place] Serum or plasma alkaline kendrick sphatase measurementOrdered By: Alber Dunn on 10-28-2024 ALP [Catalytic activity/Vol] 274 U/L High 40-129 [facility] [place] Serum or plasma calcium roosevelt urement (mass/volume)Ordered By: Alber Dunn on 10-28-2024 Calcium [Mass/Vol] 9.2 mg/dL 7.6-11.0 [facility] Serum or plasma urea nitroge n measurement (mass/volume)Ordered By: Alber Dunn on 10-28-2024 Urea nitrogen [Mass/Vol] 25 mg/dL High 4-19 [facility] [place] Sodium levelOrdered By: Alber Dnun on 10-28-2024 Sodium [Moles/Vol] 128 mmol/L Low 133-145 [facility] Total proteinOrdered By: Viraj Dunn on 10-28-2024 Protein [Mass/Vol] 5.9 g/dL 5.9-8.4 [facility] Urine blood detectionOrdered By: Alber Dunn on 10-28-2024 Urine Occult Blood 250 /ul High Negative [facility] Urine clarityOrdered By: Viraj Dunn on 10-28-2024 Clarity (U) Cloudy Clear [facility] Urine color determinationOrd ered By: Alber Dunn on 10-28-2024 Color (U) Red Yellow [facility] [place] Urine leukocyte esterase det ection by dipstickOrdered By: Alber Dunn on 10-28-2024 Leukocyte esterase Test strip Ql (U) 500 /ul High Negative [facility] [place] Urine pHOrdered By: Alber grajeda on 10-28-2024 pH (U) 6.5 [pH] 5.0 - 8.0 [facility] [place] Urine sediment bacteria coun t by microscopy (number/high power field)Ordered By: Alber Dunn on 10-28-2024 Bacteria LM.HPF (Urine sed) [#/Area] 1 /[HPF] None Seen [facility] Urine specific gravity measu rementOrdered By: Alber Dunn on 10-28-2024 Specific gravity (U) [Rel density] 1.015 1.002-1.030 [facility] [place] Urobilinogen Ql (U)Ordered B y: Alber Dunn on 10-28-2024 Urine Urobilinogen Normal mg/dl Normal [facility] White blood cell (WBC) count Ordered By: Alber Dunn on 10-28-2024 WBC (Bld) [#/Vol] 22.9 10*3/uL High 4.4-11.0 [facility] White blood cell countOrdere d By: Alber Dunn on 10-28-2024 Urine WBC >100 SEEN /hpf 0-5 [facility] APTTon 10-04-2024 aPTT Coag (PPP) [Time] 40 s High Un [facility] Albuminon 10-04-2024 Albumin (Body fld) [Mass/Vol] <0.5 Normal Not established [facility] Comment on above: Order Comment: Venip uncture immediately after or during the administration of Metamizole may lead to falsely low results. Testing should be performed immediately prior to Metamizole dosing. Performed By: #### 2 524-7 #### MIREYA SHAH ([id number]) [facility] ([facility]) [address] [place] [address] Bacteria identifiedon 2024 Bacteria identified Cx Nom (Body fld) Test: Sterile Fluid Culture/Smear Specimen Source: Pleural Specimen Type: Fluid Specimen Date: 10/04/20241713 Result Date: 10/08/2024824 Result Status: Final result Resulting Lab: [facility] [id number] [place] [address] CULTURE No growth aerobically and anaerobically STAIN (1+) Rare Polymorphonuclear leukocytes No organisms seen Normal [facility] Comment on above: Performed By: #### 2 524-7 #### MIREYA SHAH ([id number]) [facility] ([facility]) [address] [place] [address] Basic metabolic 2000 panelon 10-04-2024 Anion gap [Moles/Vol] 8 mmol/L Low 10 - 2 0 mmol/L [facility] Calcium [Mass/Vol] 8.1 mg/dL Low 8.6 - 10. 3 mg/dL [facility] Chloride [Moles/Vol] 109 mmol/L High 98 - 10 7 mmol/L [facility] CO2 [Moles/Vol] 24 mmol/L 21 - 32 mmol/L [facility] Creatinine [Mass/Vol] 0.73 mg/dL 0.50 - 1.30 mg/dL [facility] eGFR - PINF [facility] Comment on above: Calculations of patric mated GFR are performed using the 2020 CKD-EPI Study Refit equation without the race variable for the IDMS-Traceable creatinine methods. https://jasn.asnjournals.org/content/early/ASN.2020 174810 Glucose [Mass/Vol] 197 mg/dL High 74 - 99 mg/dL [facility] Potassium [Moles/Vol] 3.9 mmol/L 3.5 - 5.3 mmol/L [facility] Sodium [Moles/Vol] 137 mmol/L 136 - 145 mmol/L [facility] Urea nitrogen [Mass/Vol] 17 mg/dL 6 - 23 mg/dL [facility] Anion gap [Moles/Vol] 8 mmol/L Low 10-20 [facility] Comment on above: Performed By: #### 2 4321-2 #### MIREYA SHAH ([id number]) [facility] ([facility]) [address] [place] [address] Calcium [Mass/Vol] 8.1 mg/dL Low 8.6-10.3 [facility] Comment on above: Performed By: #### 2 4321-2 #### MIREYA SHAH ([id number]) [facility] ([facility]) [address] [place] [address] Chloride [Moles/Vol] 109 mmol/L High 98-107 [facility] Comment on above: Performed By: #### 2 4321-2 #### MIREYA SHAH ([id number]) [facility] ([facility]) [address] [place] [address] CO2 [Moles/Vol] 24 mmol/L Normal 21-32 [facility] Comment on above: Performed By: #### 2 4321-2 #### MIREYA SHAH ([id number]) [facility] ([facility]) [facility] [place] [address] Creatinine [Mass/Vol] 0.73 mg/dL Normal 0.50-1.30 [facility] Comment on above: Performed By: #### 2 4321-2 #### MIREYA SHAH ([id number]) [facility] ([facility]) [address] [place] [address] GFR/1.73 sq M.predicted MDRD (S/P/Bld) [Vol rate/Area] mL/min/{1.73_m2} Normal >60 [facility] Comment on above: Result Comment: Calc ulations of estimated GFR are performed using the 2020 CKD-EPI Study Refit equation without the race variable for the IDMS-Traceable creatinine methods. https://jasn.asnjournals.org/content/early//ASN.2020 177199 Performed By: #### 2 4321-2 #### MIREYA SHAH ([id number]) [facility] ([facility]) [address] [place] [address] Glucose [Mass/Vol] 197 mg/dL High 74-99 [facility] Comment on above: Performed By: #### 2 4321-2 #### MIREYA SHAH ([id number]) [facility] ([facility]) [address] [place] [address] Potassium [Moles/Vol] 3.9 mmol/L Normal 3.5-5.3 [facility] Comment on above: Performed By: #### 2 4321-2 #### MIREYA SHAH ([id number]) [facility] ([facility]) [facility] [place] [address] Sodium [Moles/Vol] 137 mmol/L Normal 136-145 [facility] Comment on above: Performed By: #### 2 4321-2 #### GOMES ALYSSA ([id number]) [facility] ([facility]) [facility] [place] [address] Urea nitrogen [Mass/Vol] 17 mg/dL Normal 6- [facility] Comment on above: Performed By: #### 2 4321-2 #### GOMES ALYSSA ([id number]) [facility] ([facility]) [facility] [place] [id number] CBC W Auto Differential pane l (Bld)on 10-04-2024 Basophils (Bld) [#/Vol] 0.02 10*3/uL [facility] Basophils/100 WBC (Bld) 0.4 % 0.0 - 2.0 % [facility] Eosinophils (Bld) [#/Vol] 0.15 10*3/uL [facility] Eosinophils/100 WBC (Bld) 2.7 % 0.0 - 6.0 % [facility] Erythrocyte distribution width (RBC) [Ratio] 22.1 % High 11.5 - 14.5 % [facility] Hematocrit (Bld) [Volume fraction] 29.8 % Low 41.0 - 52.0 % [facility] Hemoglobin (Bld) [Mass/Vol] 9.3 g/dL Low 13.5 - 17.5 g/dL [facility] Immature granulocytes (Bld) [#/Vol] 0.01 10*3/uL [facility] Immature granulocytes/100 WBC (Bld) 0.2 % 0.0 - 0.9 % [facility] Comment on above: Immature Granulocyte Count (IG) includes promyelocytes, myelocytes and metamyelocytes but does not include bands. Percent differential counts (%) should be interpreted in the context of the absolute cell counts (cells/UL). Interpretation and review of laboratory results Abnormal [facility] Lymphocytes (Bld) [#/Vol] 0.64 10*3/uL Low [facility] Lymphocytes/100 WBC (Bld) 11.5 % 13.0 - 44.0 % [facility] MCH (RBC) [Entitic mass] 30 pg 26.0 - 34.0 pg [facility] MCHC (RBC) [Mass/Vol] 31.2 g/dL Low 32.0 - 36.0 g/dL [facility] MCV (RBC) [Entitic vol] 96 fL 80 - 100 fL [facility] Monocytes (Bld) [#/Vol] 0.46 10*3/uL [facility] Monocytes/100 WBC (Bld) 8.3 % 2.0 - 10.0 % [facility] Neutrophils (Bld) [#/Vol] 4.28 10*3/uL [facility] Comment on above: Percent differential counts (%) should be interpreted in the context of the absolute cell counts (cells/uL). Neutrophils/100 WBC (Bld) 76.9 % 40.0 - 80.0 % [facility] Nucleated RBC/100 WBC (Bld) [Ratio] 0 % [facility] Platelets (Bld) [#/Vol] 65 10*3/uL Low U [facility] RBC (Bld) [#/Vol] 3.1 10*6/uL Low [facility] WBC (Bld) [#/Vol] 5.6 10*3/uL [facility] Basophils (Bld) [#/Vol] 0.02 x10*3/uL Normal 0.00-0.10 [facility] Comment on above: Performed By: #### 5 7021-8 #### MIREYA SHAH ([id number]) [facility] ([facility]) [address] [place] [address] 22390 Basophils/100 WBC (Bld) 0.4 % Normal 0.0-2.0 U [facility] Comment on above: Performed By: #### 5 7021-8 #### MIREYA SHAH ([id number]) [facility] ([facility]) [address] [place] [address]44 Eosinophils (Bld) [#/Vol] 0.15 x10*3/uL Normal 0.00-0.70 [facility] Comment on above: Performed By: #### 5 7021-8 #### MIREYA SHAH ([id number]) [facility] ([facility]) [address] [place] [address] 20098 Eosinophils/100 WBC (Bld) 2.7 % Normal 0.0-6.0 [facility] Comment on above: Performed By: #### 5 7021-8 #### MIREYA SHAH ([id number]) [facility] ([facility]) [address] [place] [address] 37435 Erythrocyte distribution width (RBC) [Ratio] 22.1 % High 11.5-14.5 [facility] Comment on above: Performed By: #### 5 7021-8 #### MIREYA SHAH ([id number]) [facility] ([facility]) [address] [place] [address] Hematocrit (Bld) [Volume fraction] 29.8 % Low 41.0-52.0 [facility] Comment on above: Performed By: #### 5 7021-8 #### MIREYA SHAH ([id number]) [facility] ([facility]) [address] [place], [place] [address] Hemoglobin (Bld) [Mass/Vol] 9.3 g/dL Low 13.5-17.5 [facility] Comment on above: Performed By: #### 5 7021-8 #### MIREYA SHAH ([id number]) [facility] ([facility]) [address] [place] [address] 51278 Immature granulocytes (Bld) [#/Vol] 0.01 x10*3/uL Normal 0.00-0.70 [facility] Comment on above: Performed By: #### 5 7021-8 #### MIREYA SHAH ([id number]) [facility] ([facility]) [address] [place] [address]1853 Immature granulocytes/100 WBC (Bld) 0.2 % Normal 0.0-0.9 [facility] Comment on above: Result Comment: Danielle ture Granulocyte Count (IG) includes promyelocytes, myelocytes and metamyelocytes but does not include bands. Percent differential counts (%) should be interpreted in the context of the absolute cell counts (cells/UL). Performed By: #### 5 7021-8 #### MIREYA SHAH ([id number]) [facility] ([facility]) [address] [place] [address] 00738 Lymphocytes (Bld) [#/Vol] 0.64 x10*3/uL Low 1.20-4.80 [facility] Comment on above: Performed By: #### 5 7021-8 #### MIREYA SHAH ([id number]) [facility] ([facility]) [address] [place] [address] 08580 Lymphocytes/100 WBC (Bld) 11.5 % Normal 13.0-44.0 [facility] Comment on above: Performed By: #### 5 7021-8 #### MIREYA SHAH ([id number]) [facility] ([facility]) [address] [place] [address] MCH (RBC) [Entitic mass] 30.0 pg Normal 26.0-34.0 [facility] Comment on above: Performed By: #### 5 7021-8 #### MIREYA SHAH ([id number]) [facility] ([facility]) [address] [place] [address] 22496 MCHC (RBC) [Mass/Vol] 31.2 g/dL Low 32.0-36.0 [facility] Comment on above: Performed By: #### 5 7021-8 #### MIREYA SHAH ([id number]) [facility] ([facility]) [address] [place] [address]1003 MCV (RBC) [Entitic vol] 96 fL Normal 80-100 U [facility] Comment on above: Performed By: #### 5 7021-8 #### MIREYA SHAH ([id number]) [facility] ([facility]) [address] [place] [address] 65710 Monocytes (Bld) [#/Vol] 0.46 x10*3/uL Normal 0.10-1.00 [facility] Comment on above: Performed By: #### 5 7021-8 #### MIREYA SHAH ([id number]) [facility] ([facility]) [address] [place] [address] Monocytes/100 WBC (Bld) 8.3 % Normal 2.0-10.0 U [facility] Comment on above: Performed By: #### 5 7021-8 #### MIREYA SHAH ([id number]) [facility] ([facility]) [address] [place] [address] 62282 Neutrophils (Bld) [#/Vol] 4.28 x10*3/uL Normal 1.20-7.70 [facility] Comment on above: Result Comment: Perc ent differential counts (%) should be interpreted in the context of the absolute cell counts (cells/uL). Performed By: #### 5 7021-8 #### MIREYA SHAH ([id number]) [facility] ([facility]) [address] [place] [address] 48705 Neutrophils/100 WBC (Bld) 76.9 % Normal 40.0-80.0 [facility] Comment on above: Performed By: #### 5 7021-8 #### MIREYA SHAH ([id number]) [facility] ([facility]) [address] [place] [address] 24632 Nucleated RBC/100 WBC (Bld) [Ratio] 0.0 /100 WBCs Normal 0.0-0.0 [facility] Comment on above: Performed By: #### 5 7021-8 #### MIRYEA SHAH ([id number]) [facility] ([facility]) [address] [place] [address]304 Platelets (Bld) [#/Vol] 65 x10*3/uL Low 150-450 [facility] Comment on above: Performed By: #### 5 7021-8 #### MIREYA SHAH ([id number]) [facility] ([facility]) [address] [place] [address] 76285 RBC (Bld) [#/Vol] 3.10 x10*6/uL Low 4.50-5.90 [facility] Comment on above: Performed By: #### 5 7021-8 #### MIREYA SHAH ([id number]) [facility] ([facility]) [address] [place] [address], [place] [address] WBC (Bld) [#/Vol] 5.6 x10*3/uL Normal 4.4-11.3 [facility] Comment on above: Performed By: #### 5 7021-8 #### GOMES ALYSSA ([id number]) [facility] ([facility]) [address] [place] [address] CT ABDOMEN PELVIS W IV CONTR [place] 10-04-2024 CT ABDOMEN PELVIS W IV CONTRAST Interpreted By: Yohana Huang, STUDY: CT ABDOMEN PELVIS W IV CONTRAST; 10/04/2024 2:16 pm INDICATION: Signs/Symptoms:generaliz ed abdominal pain, hx of cirrhosis, recent paracentesis. COMPARISON: None. ACCESSION NUMBER(S): [id number] ORDERING CLINICIAN: SRIRAM OLEARY TECHNIQUE: CT of [...] Yohana Huang 10/04/2024 2:28 PM Dictation workstation: [id number] [facility] CT Abdomen and Pelvis W cont rast Jamari 10-04-2024 Coronary artery calcifications. Anasarca. Ascites. Small irregular liver consistent with cirrhosis. Extensive collateral vessels. Enlarged spleen. Ventral and inguinal hernias containing ascitic fluid. MACRO: none Signed by: Yohana Huang 10/04/2024 2:28 PM Dictation workstation: [id number] Interpreted By: Yohana Chen, STUDY: CT ABDOMEN PELVIS W IV CONTRAST; 10/04/2024 2:16 pm INDICATION: Signs/Symptoms:generaliz ed abdominal pain, hx of cirrhosis, recent paracentesis. COMPARISON: None. ACCESSION NUMBER(S): [id number] ORDERING CLINICIAN: SRIRAM OLEARY TECHNIQUE: CT of [...] cirrhosis, recent paracentesis. COMPARISON: None. ACCESSION NUMBER(S): [id number] ORDERING CLINICIAN: SRIRAM OLEARY TECHNIQUE: CT of [...] Yohana Huang 10/04/2024 2:28 PM Dictation workstation: [id number] [facility] Work Phone: Radiology Study observation (narrative) [facility] Work Phone: CT Abdomen and Pelvis W cont rast IVOrdered By: Yohana Huang on 10-04-2024 [facility] Work Phone: Cell count panel (Body fld)O rdered By: Fortino Mcgee on 10-04-2024 Clarity (Body fld) Hazy Abnormal Clear [facility] Color (Body fld) Straw Colorless, Straw, Yellow [facility] Interpretation and review of laboratory results Abnormal [facility] RBC Auto (Body fld) [#/Vol] 2000 /uL see comment [facility] WBC (Body fld) [#/Vol] 0.058 10*3/uL See Commen t [facility] Body Fluid cell coun t reference ranges have not been established by [facility]. Reference ranges provided are based on published references. [facility] Cell count panel (Body fld)o n 10-04-2024 Clarity (Body fld) Hazy Abnormal Clear [facility] Comment on above: Order Comment: Body Fluid cell count reference ranges have not been established by [facility]. Reference ranges provided are based on published references. Performed By: #### 3 4556-1 #### MIREYA SHAH ([id number]) [facility] ([facility]) [address] [place] [address] Color (Body fld) Straw Normal Colorless, Straw, Yellow [facility] Comment on above: Order Comment: Body Fluid cell count reference ranges have not been established by [facility]. Reference ranges provided are based on published references. Performed By: #### 3 4556-1 #### MIREYA SHAH ([id number]) [facility] ([facility]) [address] [place] [address] 33467 RBC Auto (Body fld) [#/Vol] 2000 /uL Normal see comment [facility] Comment on above: Order Comment: Body Fluid cell count reference ranges have not been established by [facility]. Reference ranges provided are based on published references. Performed By: #### 3 4556-1 #### MIREYA SHAH ([id number]) [facility] ([facility]) [facility] [place] [address] WBC (Body fld) [#/Vol] 0.058 10*3/uL Normal See Commen t [facility] Comment on above: Order Comment: Body Fluid cell count reference ranges have not been established by [facility]. Reference ranges provided are based on published references. Performed By: #### 3 4556-1 #### MIREYA SHAH ([id number]) [facility] ([facility]) [facility] [place] [phone] Coagulation surface inducedo n 10-04-2024 aPTT Coag (PPP) [Time] 40 s High 26-36 [facility] Comment on above: Order Comment: The A PTT is no longer used for monitoring Unfractionated Heparin Therapy. For monitoring Heparin Therapy, use the Heparin Assay. Performed By: #### 1 4979-9 #### MIREYA SHAH ([id number]) [facility] ([facility]) [address] [place], [place] [address] Coagulation tissue factor in ducedon 10-04-2024 PT Coag (PPP) [Time] 23.6 s High 9.8-12.4 [facility] Comment on above: Performed By: #### 5 902-2 #### MIREYA SHAH ([id number]) [facility] ([facility]) [address] [place], [place] [address] Differential panel (Body fld )on 10-04-2024 Basophils/100 WBC (Body fld) 0 % not established [facility] Blasts/100 WBC Manual cnt (Body fld) 0 % not established [facility] Cells Counted Total (Body fld) [#] 100 [facility] Eosinophils/100 WBC Manual cnt (Body fld) 0 % see comment [facility] Immature Granulocytes %, Manual, Fluid 0 % not established [facility] Interpretation and review of laboratory results Abnormal [facility] Lymphocytes/100 WBC Manual cnt (Body fld) 19 % see comment [facility] Monocytes+Macrophages/1 00 WBC Manual cnt (Body fld) 17 % see comment [facility] Neutrophils/100 WBC (Body fld) 40 % see comment [facility] Other cells/100 WBC Manual cnt (Body fld) 24 % High not established [facility] Comment on above: Mesothelial cells no tianna by tech Plasma cells/100 WBC Manual cnt (Body fld) 0 % not established [facility] Body Fluid cell differential reference ranges have not been established by [facility]. Reference ranges provided are based on published references. [facility] Basophils/100 WBC (Body fld) 0 % Normal not established [facility] Comment on above: Order Comment: Body Fluid cell differential reference ranges have not been established by [facility]. Reference ranges provided are based on published references. Performed By: #### 2 9580-8 #### MIREYA SHAH ([id number]) [facility] ([facility]) [address] [place] [address] 93744 Blasts/100 WBC Manual cnt (Body fld) 0 % Normal not established [facility] Comment on above: Order Comment: Body Fluid cell differential reference ranges have not been established by [facility]. Reference ranges provided are based on published references. Performed By: #### 2 9580-8 #### MIREYA SHAH ([id number]) [facility] ([facility]) [address] [place] [address] 83152 Cells Counted Total (Body fld) [#] 100 Normal [facility] Comment on above: Order Comment: Body Fluid cell differential reference ranges have not been established by [facility]. Reference ranges provided are based on published references. Performed By: #### 2 9580-8 #### MIREYA SHAH ([id number]) [facility] ([facility]) [facility] [place] [address] Eosinophils/100 WBC Manual cnt (Body fld) 0 % Normal see comment [facility] Comment on above: Order Comment: Body Fluid cell differential reference ranges have not been established by [facility]. Reference ranges provided are based on published references. Performed By: #### 2 9580-8 #### MIREYA SHAH ([id number]) [facility] ([facility]) [address] [place] [address] 89620 IMMATURE GRANULOCYTES IN FLUID 0 % Normal not established [facility] Comment on above: Order Comment: Body Fluid cell differential reference ranges have not been established by [facility]. Reference ranges provided are based on published references. Performed By: #### 2 9580-8 #### MIREYA SHAH ([id number]) [facility] ([facility]) [address] [place] [address] 00114 Lymphocytes/100 WBC Manual cnt (Body fld) 19 % Normal see comment [facility] Comment on above: Order Comment: Body Fluid cell differential reference ranges have not been established by [facility]. Reference ranges provided are based on published references. Performed By: #### 2 9580-8 #### MIREYA SHAH ([id number]) [facility] ([facility]) [address] [place] [address] 87453 Monocytes+Macrophages/1 00 WBC Manual cnt (Body fld) 17 % Normal see comment [facility] Comment on above: Order Comment: Body Fluid cell differential reference ranges have not been established by [facility]. Reference ranges provided are based on published references. Performed By: #### 2 9580-8 #### MIREYA SHAH ([id number]) [facility] ([facility]) [address] [place] [address] 68015 Neutrophils/100 WBC (Body fld) 40 % Normal see comment [facility] Comment on above: Order Comment: Body Fluid cell differential reference ranges have not been established by [facility]. Reference ranges provided are based on published references. Performed By: #### 2 9580-8 #### MIREYA SHAH ([id number]) [facility] ([facility]) [address] [place] [address] 71407 Other cells/100 WBC Manual cnt (Body fld) 24 % High not established [facility] Comment on above: Order Comment: Body Fluid cell differential reference ranges have not been established by [facility]. Reference ranges provided are based on published references. Result Comment: Meso thelial cells noted by tech Performed By: #### 2 9580-8 #### MIREYA SHAH ([id number]) [facility] ([facility]) [address] [place] [address] [place] [address] Plasma cells/100 WBC Manual cnt (Body fld) 0 % Normal not established [facility] Comment on above: Order Comment: Body Fluid cell differential reference ranges have not been established by [facility]. Reference ranges provided are based on published references. Performed By: #### 2 9580-8 #### MIREYA SHAH ([id number]) [facility] ([facility]) [address] [place] [address] 17525 Glucoseon 10-04-2024 Glucose (Body fld) [Mass/Vol] 200 mg/dL Normal Not established [facility] Comment on above: Order Comment: Venip uncture immediately after or during the administration of Metamizole may lead to falsely low results. Testing should be performed immediately prior to Metamizole dosing. Performed By: #### 2 524-7 #### MIREYA SHAH ([id number]) [facility] ([facility]) [address] [place] [address] 47244 Hepatic function 2000 panelo n 10-04-2024 Albumin BCP dye [Mass/Vol] 2.4 g/dL Low 3.4 - 5.0 g/dL [facility] ALP [Catalytic activity/Vol] 212 U/L High 33 - 120 U/L [facility] ALT With P-5'-P [Catalytic activity/Vol] 46 U/L 10 - 52 U/L [facility] Comment on above: Patients treated wit h Sulfasalazine may generate falsely decreased results for ALT. AST With P-5'-P [Catalytic activity/Vol] 49 U/L High 9 - 39 U/L [facility] Bilirubin [Mass/Vol] 1.8 mg/dL High 0.0 - 1 .2 mg/dL [facility] Bilirubin.direct [Mass/Vol] 0.7 mg/dL High 0.0 - 0.3 mg/dL [facility] Protein [Mass/Vol] 5.7 g/dL Low 6.4 - 8.2 g/dL [facility] Albumin BCP dye [Mass/Vol] 2.4 g/dL Low 3.4-5.0 [facility] Comment on above: Performed By: #### 2 5-3 #### MIREYA SHAH ([id number]) [facility] ([facility]) [address] [place] [address] ALP [Catalytic activity/Vol] 212 U/L High 33-120 [facility] Comment on above: Performed By: #### 2 4324-3 #### MIREYA SHAH ([id number]) [facility] ([facility]) [address] [place] [address] ALT With P-5'-P [Catalytic activity/Vol] 46 U/L Normal 10-52 [facility] Comment on above: Result Comment: Argenis ents treated with Sulfasalazine may generate falsely decreased results for ALT. Performed By: #### 2 4324-3 #### MIREYA SHAH ([id number]) [facility] ([facility]) [address] [place] [address] AST With P-5'-P [Catalytic activity/Vol] 49 U/L High 9-39 [facility] Comment on above: Performed By: #### 2 4324-3 #### MIREYA SHAH ([id number]) [facility] ([facility]) [address] [place] [address] Bilirubin [Mass/Vol] 1.8 mg/dL High 0.0-1.2 [facility] Comment on above: Performed By: #### 2 4324-3 #### MIREYA SHAH ([id number]) [facility] ([facility]) [address] [place] [address] Bilirubin.direct [Mass/Vol] 0.7 mg/dL High 0.0-0.3 [facility] Comment on above: Performed By: #### 2 4324-3 #### MIREYA SHAH ([id number]) [facility] ([facility]) [address] [place] [address] 81905 Protein [Mass/Vol] 5.7 g/dL Low 6.4-8.2 [facility] Comment on above: Performed By: #### 2 4324-3 #### MIREYA SHAH ([id number]) [facility] ([facility]) [address] [place] [address], [place] [address] Lactateon 10-04-2024 Lactate [Moles/Vol] 2 mmol/L 0.4 - 2. 0 mmol/L [facility] Lactate [Moles/Vol] 2.0 mmol/L Normal 0.4-2.0 [facility] Comment on above: Order Comment: Venip uncture immediately after or during the administration of Metamizole may lead to falsely low results. Testing should be performed immediately prior to Metamizole dosing. Performed By: #### 2 524-7 #### MIREYA SHAH ([id number]) [facility] ([facility]) [address] [place] [address] 16006 Lactate [Moles/Vol]on 2024 Interpretation and review of laboratory results Normal [facility] Venipuncture immedia tely after or during the administration of Metamizole may lead to falsely low results. Testing should be performed immediately prior to Metamizole dosing. [facility] Lactate dehydrogenaseon LDH Lactate to pyruvate reaction (Body fld) [Catalytic activity/Vol] <25 Normal Not established. [facility] Comment on above: Order Comment: Venip uncture immediately after or during the administration of Metamizole may lead to falsely low results. Testing should be performed immediately prior to Metamizole dosing. Performed By: #### 2 524-7 #### MIREYA SHAH ([id number]) [facility] ([facility]) [address] [place] [id number] Lipaseon 10-04-2024 Lipase [Catalytic activity/Vol] 56 U/L 9 - 82 U/L [facility] Lipase [Catalytic activity/V ol]on 10-04-2024 Interpretation and review of laboratory results Normal [facility] Venipuncture immedia tely after or during the administration of Metamizole may lead to falsely low results. Testing should be performed immediately prior to Metamizole dosing. [facility] No Panel Informationon 10-04 Interpretation and review of laboratory results Abnormal [facility] Interpretation and review of laboratory results Abnormal [facility] Non-retort furnace helper cytology studyon Non-gynecological cytology method study Pathology report.total SEE COMMENT Non-gynecologic Cytology Case: [id number] Authorizing Provider: Joey Huang DO Collected: 10/04/2024 1714 Ordering Location: [facility] Received: 10/05/2024 2[facility] Pathologist: Jarvis Guzman MD Specimen: ASCITIC FLUID Path report.final diagnosis SEE COMMENT A. ASCITIC FLUID: - NO MALIGNANT CELLS IDENTIFIED. Note: This case has been evaluated using a concentrated (ThinPrep) preparation. Laboratory comment SEE COMMENT Slide(s) initially screened by ABEL Castro at [address] [id number] By the signature on this report, the [...] Block) A1-1 Pap Stain NGYN ThinPrep Normal [facility] PT Coag (PPP) [Time]on 10-04 INR Coag (PPP) [Relative time] 2.1 {INR} High 0.9 - 1.1 [facility] INR Coag (PPP) [Relative time] 2.1 High 0.9-1.1 [facility] Comment on above: Performed By: #### 5 902-2 #### GOMES ALYSSA ([id number]) [facility] ([facility]) [address] [place] [address] Paracentesison 10-04-2024 Joey Huang DO 10/04/2024 5:18 PM Paracentesis Date/Time: 10/04/2024 5:17 PM Performed by: Joey Huang DO Authorized by: Joey Huang DO Consent: Consent obtained: Written Consent given by: Patient Risks, benefits, and alternatives were discussed: yes Risks discussed: Bleeding, bowel perforation and infection Alternatives discussed: No treatment [place] protocol: Procedure explained and questions answered to [...] Adhesive bandage Post-procedure details: Procedure completion: Tolerated [facility] Work Phone: [facility] Work Phone: Proteinon 10-04-2024 Protein (Body fld) [Mass/Vol] g/dL Normal Not established [facility] Comment on above: Order Comment: Venip uncture immediately after or during the administration of Metamizole may lead to falsely low results. Testing should be performed immediately prior to Metamizole dosing. Performed By: #### 2 524-7 #### MIREYA SHAH ([id number]) [facility] ([facility]) [address] [place] [address] Protime-INRon 10-04-2024 PT Coag (PPP) [Time] 23.6 [facility] Triacylglycerol lipaseon Lipase [Catalytic activity/Vol] 56 U/L Normal 9-82 [facility] Comment on above: Order Comment: Venip uncture immediately after or during the administration of Metamizole may lead to falsely low results. Testing should be performed immediately prior to Metamizole dosing. Performed By: #### 3 040-3 #### MIREYA SHAH ([id number]) [facility] ([facility]) [address] [place] [address] aPTT Coag (PPP) [Time]on The APTT is no longe r used for monitoring Unfractionated Heparin Therapy. For monitoring Heparin Therapy, use the Heparin Assay. [facility] pHon 10-04-2024 pH (Body fld) 7.82 Normal See Below [facility] Comment on above: Order Comment: Venip uncture immediately after or during the administration of Metamizole may lead to falsely low results. Testing should be performed immediately prior to Metamizole dosing. Performed By: #### 2 524-7 #### GOMES ALYSSA ([id number]) [facility] ([facility]) [address] [place] [address] Glucose measurement at [facility] deOrdered By: Boone Izquierdo on 09-14-2024 Bedside Glucose (Misc Panel) 134 mg/dL High 74-106 [facility] Comment on above: MANAGEMENT OF PATIEN T CARE PER NURSING PROTOCOL Glucose [Mass/Vol] 134 mg/dL High 74-106 [facility] Glucose measurement at bedside 134 mg/dL High 74-106 [facility] Blood urea nitrogen (BUN)/cr eatinine ratioOrdered By: Jae Ash on 09-12-2024 Urea nitrogen/Creatinine [Mass ratio] 7.6 mg/mg Low 10-20 [facility] Blood urea nitrogen (BUN)/creatinine ratio 7.6 RATIO Low 10-20 [facility] Calcium [Mass/Vol]Ordered By : Jae Ash on 09-12-2024 Serum or plasma calcium measurement (mass/volume) 8.1 mg/dL Low 8.5-10.1 [facility] Carbon dioxide measurementOr dered By: Jae Ash on 09-12-2024 CO2 [Moles/Vol] 20.0 mmol/L Low 21.0-32.0 [facility] Carbon dioxide measurement 20.0 mmol/L Low 21.0-32.0 [facility] Chloride measurementOrdered By: Jae Ash on 09-12-2024 Chloride [Moles/Vol] 109 mmol/L High 98-107 [facility] Chloride measurement 109 mmol/L High 98-107 [facility] Creatinine [Mass/Vol]Ordered By: Jae Ash on 09-12-2024 Serum or plasma creatinine measurement (mass/volume) 0.92 mg/dL 0.70-1.30 [facility] Erythrocyte distribution wid th (RBC) [Ratio]Ordered By: Jae Ash on 09-12-2024 Erythrocyte distribution width ratio 19.7 % High 11.6-14.6 [facility] Erythrocyte distribution width standard deviation 63.5 fl High 35.1-43.9 [facility] Erythrocyte distribution wid th ratioOrdered By: Jae Ash on 09-12-2024 Erythrocyte distribution width (RBC) [Ratio] 19.7 % High 11.6-14.6 [facility] Erythrocyte distribution wid th standard deviationOrdered By: Jae Ash on 09-12-2024 Erythrocyte distribution width (RBC) [Entitic vol] 63.5 fL High 35.1-43.9 [facility] Erythrocyte distribution width (RBC) [Ratio] 63.5 fl High 35.1-43.9 [facility] Estimated glomerular filtrat ion rate (GFR) AmericanOrdered By: Jae Ash on 09-12-2024 Estimated GFR (MDRD) Amer 108 mL/min >60 [facility] Comment on above: GFR Calc Estimated glomerular filtration rate (GFR) 108 mL/min >60 [facility] Estimation of creatinine gregorio aranceOrdered By: Jae Ash on 09-12-2024 Estimated Creatinine Clearance Calc 71.80 ml/min [facility] Estimation of creatinine clearance 71.80 ml/min [facility] Glomerular filtration rate ( GFR) estimationOrdered By: Jae Ash on 09-12-2024 Estimated GFR (MDRD) Non-Af Amer 89 mL/min >60 [facility] Comment on above: Non- GFR Calc GFR/1.73 sq M.predicted among non-blacks MDRD (S/P/Bld) [Vol rate/Area] 89 mL/min/{1.73_m2} >60 [facility] Glomerular filtration rate (GFR) estimation 89 mL/min >60 [facility] Glucose measurementOrdered B y: Jae Ash on 09-12-2024 Glucose [Mass/Vol] 149 mg/dL High 74-106 [facility] Comment on above: Fasting Glucose resu lt greater than or equal to 126 mg/dL suggests DIABETES MELLITUS per A.D.A. criteria. Glucose measurement 149 mg/dL High 74-106 [facility] Hematocrit Auto (Bld) [Volum e fraction]Ordered By: Jae Ash on 09-12-2024 Hematocrit (Bld) [Volume fraction] 25.8 % Low 40-54 [facility] Automated blood hematocrit (percentage) 25.8 % Low 40-54 [facility] Hemoglobin measurementOrdere d By: Jae Ash on 09-12-2024 Hemoglobin (Bld) [Mass/Vol] 8.1 g/dL Low 13.0-16.5 [facility] Hemoglobin measurement 8.1 g/dL Low 13.0-16.5 [facility] MCV (RBC) [Entitic vol]Order ed By: Jae Ash on 09-12-2024 MCV (mean corpuscular volume) determination 90.5 fL 80-94 [facility] MCV (mean corpuscular volume ) determinationOrdered By: Jae Ash on 09-12-2024 MCV (RBC) [Entitic vol] 90.5 fL 80-94 [facility] Mean corpuscular hemoglobin (MCH) determinationOrdered By: Jae Ash on 09-12-2024 MCH (RBC) [Entitic mass] 28.4 pg 27.0-32.0 [facility] Mean corpuscular hemoglobin (MCH) determination 28.4 pg 27.0-32.0 [facility] Mean corpuscular hemoglobin concentration (MCHC) determinationOrdered By: Jae sAh on 09-12-2024 MCHC (RBC) [Mass/Vol] 31.4 g/dL [facility] 32-36 [facility] Comment on above: Delta: 33.1 on 09/10 Mean corpuscular hemoglobin concentration (MCHC) determination 31.4 g/dL [facility] 32-36 [facility] Mean platelet volume determi nationOrdered By: Jae sAh on 09-12-2024 Platelet mean volume (Bld) [Entitic vol] 11.9 fL 6.2-12.0 [facility] Mean platelet volume determination 11.9 fl 6.2-12.0 [facility] Platelet countOrdered By: Sky Ash on 09-12-2024 Platelets (Bld) [#/Vol] 115 10*3/uL Low 150-450 [facility] Platelet count 115 K/mm3 Low 150-450 [facility] Potassium measurementOrdered By: Jae Ash on 09-12-2024 Potassium [Moles/Vol] 3.4 mmol/L Low 3.5-5.1 [facility] Potassium measurement 3.4 mmol/L Low 3.5-5.1 [facility] RBC Auto (Bld) [#/Vol]Ordere d By: Jae Ash on 09-12-2024 RBC (Bld) [#/Vol] 2.85 10*6/uL Low 4.6-6.2 [facility] Automated blood erythrocyte count 2.85 M/mm3 Low 4.6-6.2 [facility] Serum anion gap measurementO rdered By: Jae Ash on 09-12-2024 Anion gap [Moles/Vol] 7 mmol/L 5-15 [facility] Serum anion gap measurement 7 5-15 [facility] Serum or plasma calcium roosevelt urement (mass/volume)Ordered By: Jae Ash on 09-12-2024 Calcium [Mass/Vol] 8.1 mg/dL Low 8.5-10.1 [facility] Serum or plasma creatinine m easurement (mass/volume)Ordered By: Jae Ash on 09-12-2024 Creatinine [Mass/Vol] 0.92 mg/dL 0.70-1.30 [facility] Comment on above: The validity of the calculated GFR & GFRAA in patients over 70 years has not been determined. Clinical correlation is essential. Serum or plasma urea nitroge n measurement (mass/volume)Ordered By: Jae Ash on 09-12-2024 Urea nitrogen [Mass/Vol] 7 mg/dL - [facility] Sodium levelOrdered By: Pasha Ash on 09-12-2024 Sodium [Moles/Vol] 136 mmol/L 136-145 [facility] Sodium level 136 mmol/L 136-145 [facility] Urea nitrogen [Mass/Vol]Orde red By: Jae Ash on 09-12-2024 Serum or plasma urea nitrogen measurement (mass/volume) 7 mg/dL - [facility] White blood cell (WBC) count Ordered By: Jae Ash on 09-12-2024 WBC (Bld) [#/Vol] 7.4 10*3/uL 4.4-11.0 [facility] White blood cell (WBC) count 7.4 K/mm3 4.4-11.0 [facility] Serum or plasma trough vanco mycin levelOrdered By: Thai Thurston on 09-10-2024 Vancomycin trough [Mass/Vol] 15.7 ug/mL High 5.0-15.0 [facility] Vancomycin trough [Mass/Vol] Ordered By: Thai Thurston on 09-10-2024 Vancomycin Level Trough 15.7 ug/mL High 5.0-15.0 [facility] Comment on above: VANCOMYCIN STANDARED DRUG THERAPY TROUGH LEVEL: 5.0 - 15.0 mg/L VANCOMYCIN HIGH INTENSITY THERAPY TROUGH LEVEL: 15.0 - 20.0 mg/L High Intensity therapy recommended for serious lifethreatening infections include:- Nslomxmxfw-Huelvqtepecd-Xeczaoxxj (Ventilator/Healtcare Associated)-Sepsis PLEASE CONTACT PHARMACY SERVICES (#[id number]) FOR INTERPRETATIONOF RESULTS. Serum or plasma trough vancomycin level 15.7 ug/mL High 5.0-15.0 [facility] Serum or plasma vancomycin l evel (mass/volume)Ordered By: Maria Guadalupe Shore on 09-08-2024 Vancomycin [Mass/Vol] 16.5 ug/mL High 0.0-15.0 [facility] Vancomycin [Mass/Vol]Ordered By: Maria Guadalupe Shore on 09-08-2024 Random Vancomycin Level 16.5 ug/mL High 0.0-15.0 [facility] Comment on above: VANCOMYCIN STANDARD DRUG THERAPY: CRITICAL VALUE IS > 15.0 mg/L VANCOMYCIN HIGH INTENSITY THERAPY: CRITICAL VALUE IS > 20.0 mg/L PLEASE CONTACT PHARMACY SERVICES (#[id number]) FOR INTERPRETATIONOF RESULTS. THIS RESULT DOES NOT REPRESENT A PEAK OR TROUGHLEVEL FOR THIS DRUG. Serum or plasma vancomycin level (mass/volume) 16.5 ug/mL High 0.0-15.0 [facility] Absolute lymphocyte countOrd ered By: Anurag Irene on 09-07-2024 Lymphocytes Auto (Unsp spec) [#/Vol] 0.95 10*3/uL 0.83-4.51 [facility] Absolute neutrophil countOrd ered By: Anurag Irene on 09-07-2024 Neutrophils (Bld) [#/Vol] 13.3 10*3/uL High 2.0-7.7 [facility] Absolute neutrophil count 13.3 X10^3/uL High 2.0-7.7 [facility] Automated lymphocyte count a s percentage of total leukocytesOrdered By: Anurag Irene on 09-07-2024 Lymphocytes/100 WBC Auto (Unsp spec) 5.8 % Low 19-41 [facility] Basophil percentageOrdered B y: Anurag Irene on 09-07-2024 Basophils/100 WBC (Bld) 0.4 % 0-1 [facility] Basophil percentage 0.4 % 0-1 [facility] Eosinophil percentageOrdered By: Anurag Irene on 09-07-2024 Eosinophils/100 WBC (Bld) 3.0 % 0-5 [facility] Eosinophil percentage 3.0 % 0-5 [facility] Immature granulocytes/100 WB C Auto (Bld)Ordered By: Anurag Irene on 09-07-2024 Immature granulocytes/100 WBC (Bld) 1.400 % High 0.0-0.9 [facility] Comment on above: IG% - Immature Granu locytes (promyelocytes, myelocytes and metamyelocytes) > 1% indicates that a LEFT SHIFT is Present. Automated immature granulocyte percentage 1.400 % High 0.0-0.9 [facility] Lymphocytes Auto (Unsp spec) [#/Vol]Ordered By: Anurag Irene on 09-07-2024 Lymphocytes (Bld) [#/Vol] 0.95 10*3/uL 0.83-4.51 [facility] Absolute lymphocyte count 0.95 X10^3/uL 0.83-4.51 [facility] Lymphocytes/100 WBC Auto (Un sp spec)Ordered By: Anurag Irene on 09-07-2024 Lymphocytes/100 WBC (Bld) 5.8 % Low 19-41 [facility] Automated lymphocyte count as percentage of total leukocytes 5.8 % Low 19-41 [facility] Monocyte percentageOrdered B y: Anurag Irene on 09-07-2024 Monocytes/100 WBC (Bld) 8.6 % 0-10 [facility] Monocyte percentage 8.6 % 0-10 [facility] Neutrophil percentageOrdered By: Anurag Irene on 09-07-2024 Neutrophils/100 WBC (Bld) 80.8 % High 47-70 [facility] Neutrophil percentage 80.8 % High 47-70 [facility] Nucleated red blood cell per centageOrdered By: Anurag Irene on 09-07-2024 Nucleated RBC/100 WBC (Bld) [Ratio] 0 % 0-5 [facility] Nucleated red blood cell percentage 0 % 0-5 [facility] Blood cultureOrdered By: [place] Irene on 09-06-2024 Bacteria identified Cx Nom (Bld) No growth in 5 days. [facility] Blood culture No growth in 5 days. [facility] Blood cultureOrdered By: Shi Joiner on 09-05-2024 Bacteria identified Cx Nom (Bld) Staphylococcus epidermidis Abnormal [facility] Blood culture Staphylococcus epidermidis Abnormal [facility] Folic acid measurementOrdere d By: Hill Wright on 09-05-2024 Folate 30.10 ng/mL 3.1-55.4 [facility] Folic acid measurement 30.10 ng/mL 3.1-55.4 [facility] Lactic acid measurementOrder ed By: Hill Wright on 09-05-2024 Lactate [Moles/Vol] 2.3 mmol/L High 0.4-2.0 [facility] Comment on above: Critical Result(s) C alled at: 08:26:40 09/05/2024 by: Lucy jenkins [facility]. Results read back by same. Lactic acid measurement 2.3 mmol/L High 0.4-2.0 [facility] Serum ethanol measurementOrd ered By: Hill Wright on 09-05-2024 Ethyl Alcohol Level 4.0 mg/dL [facility] Comment on above: The serum:whole bloo d ethanol ratio is approximately 1.14and varies slightly with hematocrit. Medical Alcohol reference interval and critical value innon-tolerant individuals; 50 - 100 Impairment 100 Intoxication 100 - 250 Severe Poisoning 250 - 400 Deep/possible fatal coma Serum ethanol measurement 4.0 mg/dL [facility] Vitamin B12 measurementOrder ed By: Hill Wright on 09-05-2024 Vitamin B12 Level > 2000 pg/mL High 211-911 [facility] Vitamin B12 measurement > 2000 pg/mL High 211-911 [facility] ALP [Catalytic activity/Vol] Ordered By: Rachel Joiner on 09-04-2024 Serum or plasma alkaline phosphatase measurement 269 U/L High 45-117 [facility] ALT [Catalytic activity/Vol] Ordered By: Rachel Joiner on 09-04-2024 Serum or plasma alanine aminotransferase (ALT) measurement 79 U/L High 16-61 [facility] Albumin [Mass/Vol]Ordered By : Rachel Joiner on 09-04-2024 Serum or plasma albumin measurement (mass/volume) 2.0 g/dL Low 3.2-5.0 [facility] Bilirubin Test strip Ql (U)O rdered By: Rachel Joiner on 09-04-2024 Bilirubin Ql (U) 1 mg/dL High Negative [facility] Comment on above: COLOR OF URINE MAY A FFECT DIPSTICK RESULTS. Bilirubin directOrdered By: Rachel Joiner on 09-04-2024 Bilirubin.direct [Mass/Vol] 1.80 mg/dL High 0.00-0.30 [facility] Bilirubin, totalOrdered By: Rachel Joiner on 09-04-2024 Bilirubin [Mass/Vol] 3.10 mg/dL High 0.20-1.00 [facility] Comment on above: For patients on eltr ombopag therapy, use of Dimension [place] TBIL is not recommended. Bilirubin, total 3.10 mg/dL High 0.20-1.00 [facility] Bilirubin.direct [Mass/Vol]O rdered By: Rachel Joiner on 09-04-2024 Bilirubin direct 1.80 mg/dL High 0.00-0.30 [facility] Blood cultureOrdered By: Shi Joiner on 09-04-2024 Bacteria identified Cx Nom (Bld) [facility] Clarity (U)Ordered By: Kaz Joiner on 09-04-2024 Urine clarity Clear Clear [facility] Color (U)Ordered By: Rachel Joiner on 09-04-2024 Urine color determination Yellow Yellow [facility] Epithelial cells.squamous LM Ql (Urine sed)Ordered By: Rachel Joiner on 09-04-2024 Epithelial cells.squamous LM.HPF (Urine sed) [#/Area] 0 /[HPF] 0-5 [facility] Glucose Ql (U)Ordered By: Brendan Joiner on 09-04-2024 Urine Glucose (UA) Normal mg/dl Normal [facility] Urine glucose detection Normal mg/dl Normal [facility] HbA1c (Bld) [Mass fraction]O rdered By: Hill Wright on 09-04-2024 Hemoglobin A1c percentage 7.3 % High 3.8-5.6 [facility] Hemoglobin A1c percentageOrd ered By: Hill Wright on 09-04-2024 HbA1c (Bld) [Mass fraction] 7.3 % High 3.8-5.6 [facility] Comment on above: Normal < 5.7 % Predi abetic 5.7 - 6.4 % Diabetic >or= 6.5 % Please note range changes. Ketones Test strip Ql (U)Ord ered By: Rachel Joiner on 09-04-2024 Ketones Ql (U) Negative Negative [facility] Laboratory - Chemistry and C hemistry - challengeOrdered By: Rachel Joiner on 09-04-2024 AST [Catalytic activity/Vol] 156 U/L High 15-37 [facility] Leukocyte esterase Test stri p Ql (U)Ordered By: Rachel Joiner on 09-04-2024 Urine leukocyte esterase detection by dipstick 100 /ul High Negative [facility] Methadone, urineOrdered By: Rachel Joiner on 09-04-2024 Urine Methadone Screen Negative < 300 ng/mL [facility] Microorganism identified Cx Nom (Unsp spec)Ordered By: Rachel Joiner on 09-04-2024 Bacteria Detection (PCR) Staphylococcus epidermidis Abnormal [facility] Bacteria Detection (PCR) mecA Resistance Marker Abnormal [facility] Organism identification mecA Resistance Marker Abnormal [facility] Microscopic analysis of urin e for red blood cells (RBC)Ordered By: Rachel Joiner on 09-04-2024 Urine RBC 10-25 SEEN /hpf 0-5 [facility] Microscopic analysis of urine for red blood cells (RBC) 10-25 SEEN /hpf 0-5 [facility] Mucus LM Ql (Urine sed)Order ed By: Rachel Joiner on 09-04-2024 Mucus Ql (Urine sed) 0 SEEN /hpf [facility] Nitrite Test strip Ql (U)Ord ered By: Rachel Joiner on 09-04-2024 Nitrite Ql (U) Negative Negative [facility] No Panel InformationOrdered By: Rachel Joiner on 09-04-2024 156 U/L High 15-37 [facility] Urine Drug Screen Comment [facility] [facility] [place] Comment on above: CONFIRMATORY TESTING FOR ALL [...] MUST BE ORDERED SEPARATELY. USE TESTMNEMONIC: [facility] [place] Organism identificationOrder ed By: Rachel Joiner on 09-04-2024 Microorganism identified Cx Nom (Unsp spec) Staphylococcus epidermidis Abnormal [facility] [place] Microorganism identified Cx Nom (Unsp spec) mecA Resistance Marker Abnormal [facility] [place] Protein Test strip Ql (U)Ord ered By: Rachel Joiner on 09-04-2024 Protein Ql (U) 30 mg/dl High Negative [facility] [place] Urine protein assay by test strip, semi-quantitative 30 mg/dl High Negative [facility] [place] Quantitative urine opiates m easurementOrdered By: Rachel Joiner on 09-04-2024 Opiates Ql (U) Positive High < 300 ng/mL [facility] [place] Quantitative urine opiates measurement Positive High < 300 ng/mL [facility] [place] Screening prostate specific antigen (PSA) measurementOrdered By: Hill Wright on 09-04-2024 Prostate Specific Antigen Screen 1.41 ng/mL 0.00-4.00 [facility] [place] Comment on above: This test was perfor med using the TPSA assay method for the[employer] chemistry system. Values obtained with differentassay methods cannot be used interchangably.When changing PSA assays in the course of monitoring apatient, additional sequential testing should be carriedout to confirm baseline values. Screening prostate specific antigen (PSA) measurement 1.41 ng/mL 0.00-4.00 [facility] [place] Serum globulin measurementOr dered By: Rachel Joiner on 09-04-2024 Globulin (S) [Mass/Vol] 4.1 g/dL 2.2-4.2 [facility] Serum globulin measurement 4.1 g/dL 2.2-4.2 [facility] [place] Serum or plasma alanine thomas otransferase (ALT) measurementOrdered By: Rachel Joiner on 09-04-2024 ALT [Catalytic activity/Vol] 79 U/L High 16-61 [facility] [place] Serum or plasma albumin roosevelt urement (mass/volume)Ordered By: Rachel Joiner on 09-04-2024 Albumin [Mass/Vol] 2.0 g/dL Low 3.2-5.0 [facility] Serum or plasma alkaline kendrick sphatase measurementOrdered By: Rachel Joiner on 09-04-2024 ALP [Catalytic activity/Vol] 269 U/L High 45-117 [facility] [place] Serum or plasma thyroid stim ulating hormone (TSH) measurement (units/volume)Ordered By: Hill Wright on 09-04-2024 TSH Qn 0.826 uIU/mL 0.358-3.740 [facility] [place] Specific gravity (U) [Rel de nsity]Ordered By: Rachel Joiner on 09-04-2024 Urine specific gravity measurement 1.020 1.002-1.030 [facility] [place] Squamous epithelial cells de tection in urine sediment by light microscopyOrdered By: Rachel Joiner on 09-04-2024 Epithelial cells.squamous LM Ql (Urine sed) 0 SEEN /hpf 0-5 [facility] [place] Squamous epithelial cells detection in urine sediment by light microscopy 0 SEEN /hpf [facility] [place] TSH QnOrdered By: Hill patino on 09-04-2024 Thyroid Stimulating Hormone (TSH) 0.826 uIU/mL 0.358-3.740 [facility] [place] Serum or plasma thyroid stimulating hormone (TSH) measurement (units/volume) 0.826 uIU/mL 0.358-3.740 [facility] [place] Total proteinOrdered By: Shi Joiner on 09-04-2024 Protein [Mass/Vol] 6.1 g/dL Low 6.4-8.2 [facility] Total protein 6.1 g/dL Low 6.4-8.2 [facility] [place] Urine amphetamine measuremen tOrdered By: Rachel Joiner on 09-04-2024 Amphetamines Ql (U) Negative <1000 ng/mL [facility] Urine barbiturates measureme ntOrdered By: Rachel Joiner on 09-04-2024 Urine Barbiturates Screen Negative < 200 ng/mL [facility] [place] Urine benzodiazepine levelOr dered By: Rachel Joiner on 09-04-2024 Benzodiazepines Ql (U) Negative < 200 ng/mL [facility] Urine blood detectionOrdered By: Rachel Joiner on 09-04-2024 Urine Occult Blood 150 /ul High Negative [facility] blood detection 150 /ul High Negative [facility] Urine clarityOrdered By: Shi Joiner on 09-04-2024 Clarity (U) Clear Clear [facility] [place] Urine cocaine levelOrdered B y: Rachel Joiner on 09-04-2024 Cocaine Ql (U) Negative < 300 ng/mL [facility] [place] Urine color determinationOrd ered By: Rachel Joiner on 09-04-2024 Color (U) Yellow Yellow [facility] [place] Urine cultureOrdered By: Hugo Wright on 09-04-2024 Bacteria identified Cx Nom (U) Staphylococcus epidermidis Abnormal [facility] [place] Urine culture Staphylococcus epidermidis Abnormal [facility] [place] Urine [id number]-[id number] abinol (THC) measurementOrdered By: Rachel Joiner on 09-04-2024 Cannabinoids Screen Ql (U) Negative < 50 ng/mL [facility] [place] Urine glucose detectionOrder ed By: Rachel Joiner on 09-04-2024 Glucose Ql (U) Normal mg/dl Normal [facility] [place] Urine ketones detection by t est stripOrdered By: Rachel Joiner on 09-04-2024 Urine ketones detection by test strip Negative < 50 ng/mL [facility] [place] Urine leukocyte esterase det ection by dipstickOrdered By: Rachel Joiner on 09-04-2024 Leukocyte esterase Test strip Ql (U) 100 /ul High Negative [facility] [place] Urine methylenedioxymethamph etamine (MDMA) measurementOrdered By: Rachel Joiner on 09-04-2024 MDMA (Ecstasy) Screen Negative < 500 ng/mL [facility] Urine pHOrdered By: Rachel silva on 09-04-2024 pH (U) 6.0 [pH] 5.0 - 8.0 [facility] [place] Urine phencyclidine (PCP) de tectionOrdered By: Rachel Joiner on 09-04-2024 Phencyclidine Ql (U) Negative < 25 ng/mL [facility] Urine sediment bacteria coun t by microscopy (number/high power field)Ordered By: Rachel Joiner on 09-04-2024 Bacteria LM.HPF (Urine sed) [#/Area] 0 /[HPF] None Seen [facility] [place] Urine specific gravity measu rementOrdered By: Rachel Joiner on 09-04-2024 Specific gravity (U) [Rel density] 1.020 1.002-1.030 [facility] [place] Urine total bilirubin detect ion by test stripOrdered By: Rachel Joiner on 09-04-2024 Urine total bilirubin detection by test strip 1 mg/dL High Normal [facility] [place] Urine urobilinogen measureme ntOrdered By: Rachel Joiner on 09-04-2024 Urobilinogen Ql (U) 1 mg/dl High Normal [facility] Urobilinogen Ql (U)Ordered B y: Rachel Joiner on 09-04-2024 Urobilinogen (U) [Mass/Vol] 1 mg/dL High Normal [facility] [place] Venous blood ammonia measure mentOrdered By: Rachel Joiner on 09-04-2024 Ammonia (P) [Moles/Vol] 26.0 umol/L [facility] [place] Venous blood ammonia measurement 26.0 umol/L [facility] [place] White blood cell countOrdere d By: Rachel Joiner on 09-04-2024 Urine WBC 5-10 SEEN /hpf 0-5 [facility] [place] Comment on above: Previous reported re sult: 0 SEEN /hpfEdited by: DANIEL on 09/04/24:8682 AMENDED REPORT 09/04/24 [id number] WBC previously reported as: 0 SEEN /hpf White blood cell count 5-10 SEEN /hpf 0-5 [facility] [place] White blood cell count 5-10 SEEN /hpf 0-5 [facility] [place] pH (U)Ordered By: Rachel Lolis lambert on 09-04-2024 Urine pH 6.0 5.0 - 8.0 [facility] [place] Absolute lymphocyte countOrd ered By: Bola Meraz on 09-02-2024 Lymphocytes Auto (Unsp spec) [#/Vol] 1.04 10*3/uL 0.83-4.51 [facility] [place] Absolute neutrophil countOrd ered By: Bola Meraz on 09-02-2024 Neutrophils (Bld) [#/Vol] 14.0 10*3/uL High 2.0-7.7 [facility] [place] Absolute neutrophil count 14.0 X10^3/uL High 2.0-7.7 [facility] [place] Automated lymphocyte count a s percentage of total leukocytesOrdered By: Bola Meraz on 09-02-2024 Lymphocytes/100 WBC Auto (Unsp spec) 6.3 % Low 19-41 [facility] [place] Basophil percentageOrdered B y: Bola Meraz on 09-02-2024 Basophils/100 WBC (Bld) 0.4 % 0-1 [facility] Basophil percentage 0.4 % 0-1 [facility] Blood urea nitrogen (BUN)/cr eatinine ratioOrdered By: Bola Meraz on 09-02-2024 Urea nitrogen/Creatinine [Mass ratio] 16.9 mg/mg 10-20 [facility] [place] Blood urea nitrogen (BUN)/creatinine ratio 16.9 RATIO 10-20 [facility] [place] Calcium [Mass/Vol]Ordered By : Bola Meraz on 09-02-2024 Serum or plasma calcium measurement (mass/volume) 8.9 mg/dL 8.5-10.1 [facility] [place] Carbon dioxide measurementOr dered By: Bola Meraz on 09-02-2024 CO2 [Moles/Vol] 19.0 mmol/L Low 21.0-32.0 [facility] [place] Carbon dioxide measurement 19.0 mmol/L Low 21.0-32.0 [facility] [place] Chloride measurementOrdered By: Bola Meraz on 09-02-2024 Chloride [Moles/Vol] 107 mmol/L 98-107 [facility] Chloride measurement 107 mmol/L 98-107 [facility] Creatinine [Mass/Vol]Ordered By: Bola Meraz on 09-02-2024 Serum or plasma creatinine measurement (mass/volume) 2.54 mg/dL High 0.70-1.30 [facility] [place] Eosinophil percentageOrdered By: Bola Meraz on 09-02-2024 Eosinophils/100 WBC (Bld) 1.3 % 0-5 [facility] [place] Eosinophil percentage 1.3 % 0-5 [facility] Erythrocyte distribution wid th (RBC) [Ratio]Ordered By: Bola Meraz on 09-02-2024 Erythrocyte distribution width ratio 15.7 % High 11.6-14.6 [facility] [place] Erythrocyte distribution width standard deviation 47.0 fl High 35.1-43.9 [facility] [place] Erythrocyte distribution wid th ratioOrdered By: Bola Meraz on 09-02-2024 Erythrocyte distribution width (RBC) [Ratio] 15.7 % High 11.6-14.6 [facility] [place] Erythrocyte distribution wid th standard deviationOrdered By: Bola Meraz on 09-02-2024 Erythrocyte distribution width (RBC) [Entitic vol] 47.0 fL High 35.1-43.9 [facility] [place] Erythrocyte distribution width (RBC) [Ratio] 47.0 fl High 35.1-43.9 [facility] [place] Estimated glomerular filtrat ion rate (GFR) AmericanOrdered By: Bola Meraz on 09-02-2024 Estimated GFR (MDRD) Amer 34 mL/min Low >60 [facility] [place] Comment on above: GFR Calc Estimated glomerular filtration rate (GFR) 34 mL/min Low >60 [facility] [place] Estimation of creatinine gregorio aranceOrdered By: Bola Meraz on 09-02-2024 Estimated Creatinine Clearance Calc 37.67 ml/min [facility] [place] Estimation of creatinine clearance 37.67 ml/min [facility] [place] Glomerular filtration rate ( GFR) estimationOrdered By: Bola Meraz on 09-02-2024 Estimated GFR (MDRD) Non-Af Amer 28 mL/min Low >60 [facility] [place] Comment on above: Non- GFR Calc GFR/1.73 sq M.predicted among non-blacks MDRD (S/P/Bld) [Vol rate/Area] 28 mL/min/{1.73_m2} Low >60 [facility] [place] Glomerular filtration rate (GFR) estimation 28 mL/min Low >60 [facility] [place] Glucose measurementOrdered B y: Bola Meraz on 09-02-2024 Glucose [Mass/Vol] 187 mg/dL High 74-106 [facility] Comment on above: Fasting Glucose resu lt greater than or equal to 126 mg/dL suggests DIABETES MELLITUS per A.D.A. criteria. Glucose measurement 187 mg/dL High 74-106 [facility] Glucose measurement at bedsi deOrdered By: Rick Carlin on 09-02-2024 Bedside Glucose (Misc Panel) 168 mg/dL High 74-106 [facility] [place] Comment on above: MANAGEMENT OF PATIEN T CARE PER NURSING PROTOCOL Glucose [Mass/Vol] 168 mg/dL High 74-106 [facility] Glucose measurement at bedside 168 mg/dL High -106 [facility] [place] Hematocrit Auto (Bld) [Volum e fraction]Ordered By: Bola Meraz on 09-02-2024 Hematocrit (Bld) [Volume fraction] 30.8 % Low 40-54 [facility] [place] Automated blood hematocrit (percentage) 30.8 % Low 40-54 [facility] [place] Hemoglobin measurementOrdere d By: Bola Meraz on 09-02-2024 Hemoglobin (Bld) [Mass/Vol] 10.7 g/dL Low 13.0-16.5 [facility] [place] Hemoglobin measurement 10.7 g/dL Low 13.0-16.5 [facility] Immature granulocytes/100 WB C Auto (Bld)Ordered By: Bola Meraz on 09-02-2024 Immature granulocytes/100 WBC (Bld) 1.300 % High 0.0-0.9 [facility] [place] Comment on above: IG% - Immature Granu locytes (promyelocytes, myelocytes and metamyelocytes) > 1% indicates that a LEFT SHIFT is Present. Automated immature granulocyte percentage 1.300 % High 0.0-0.9 [facility] [place] Lymphocytes Auto (Unsp spec) [#/Vol]Ordered By: Bola Meraz on 09-02-2024 Lymphocytes (Bld) [#/Vol] 1.04 10*3/uL 0.83-4.51 [facility] [place] Absolute lymphocyte count 1.04 X10^3/uL 0.83-4.51 [facility] [place] Lymphocytes/100 WBC Auto (Un sp spec)Ordered By: Bola Meraz on 09-02-2024 Lymphocytes/100 WBC (Bld) 6.3 % Low 19-41 [facility] [place] Automated lymphocyte count as percentage of total leukocytes 6.3 % Low 19-41 [facility] [place] MCV (RBC) [Entitic vol]Order ed By: Bola Meraz on 09-02-2024 MCV (mean corpuscular volume) determination 83.7 fL 80-94 [facility] [place] MCV (mean corpuscular volume ) determinationOrdered By: Bola Meraz on 09-02-2024 MCV (RBC) [Entitic vol] 83.7 fL 80-94 [facility] Mean corpuscular hemoglobin (MCH) determinationOrdered By: Bola Meraz on 09-02-2024 MCH (RBC) [Entitic mass] 29.1 pg 27.0-32.0 [facility] [place] Mean corpuscular hemoglobin (MCH) determination 29.1 pg 27.0-32.0 [facility] [place] Mean corpuscular hemoglobin concentration (MCHC) determinationOrdered By: Bola Meraz on 09-02-2024 MCHC (RBC) [Mass/Vol] 34.7 g/dL 32-36 [facility] Mean corpuscular hemoglobin concentration (MCHC) determination 34.7 g/dL 32-36 [facility] [place] Mean platelet volume determi nationOrdered By: Bola Meraz on 09-02-2024 Platelet mean volume (Bld) [Entitic vol] 12.8 fL High 6.2-12.0 [facility] [place] Mean platelet volume determination 12.8 fl High 6.2-12.0 [facility] [place] Monocyte percentageOrdered B y: Bola Meraz on 09-02-2024 Monocytes/100 WBC (Bld) 6.0 % 0-10 [facility] Monocyte percentage 6.0 % 0-10 [facility] Neutrophil percentageOrdered By: Bola Meraz on 09-02-2024 Neutrophils/100 WBC (Bld) 84.7 % High 47-70 [facility] [place] Neutrophil percentage 84.7 % High 47-70 [facility] Nucleated red blood cell per centageOrdered By: Bola Meraz on 09-02-2024 Nucleated RBC/100 WBC (Bld) [Ratio] 0 % 0-5 [facility] [place] Nucleated red blood cell percentage 0 % 0-5 [facility] [place] Platelet countOrdered By: Oliver on 09-02-2024 Platelets (Bld) [#/Vol] 82 10*3/uL Low 150-450 [facility] Platelet count 82 K/mm3 Low 150-450 [facility] [place] Potassium measurementOrdered By: Bola Meraz on 09-02-2024 Potassium [Moles/Vol] 4.0 mmol/L 3.5-5.1 [facility] Potassium measurement 4.0 mmol/L 3.5-5.1 [facility] RBC Auto (Bld) [#/Vol]Ordere d By: Bola Meraz on 09-02-2024 RBC (Bld) [#/Vol] 3.68 10*6/uL Low 4.6-6.2 [facility] Automated blood erythrocyte count 3.68 M/mm3 Low 4.6-6.2 [facility] [place] Serum anion gap measurementO rdered By: Bola Meraz on 09-02-2024 Anion gap [Moles/Vol] 8 mmol/L 5-15 [facility] Serum anion gap measurement 8 5-15 [facility] [place] Serum or plasma calcium roosevelt urement (mass/volume)Ordered By: Bola Meraz on 09-02-2024 Calcium [Mass/Vol] 8.9 mg/dL 8.5-10.1 [facility] Serum or plasma creatinine m easurement (mass/volume)Ordered By: Bola Meraz on 09-02-2024 Creatinine [Mass/Vol] 2.54 mg/dL High 0.70-1.30 [facility] Comment on above: The validity of the calculated GFR & GFRAA in patients over 70 years has not been determined. Clinical correlation is essential. Serum or plasma urea nitroge n measurement (mass/volume)Ordered By: Bola Meraz on 09-02-2024 Urea nitrogen [Mass/Vol] 43 mg/dL High 7-18 [facility] [place] Sodium levelOrdered By: Deanna Meraz on 09-02-2024 Sodium [Moles/Vol] 133 mmol/L Low 136-145 [facility] Sodium level 133 mmol/L Low 136-145 [facility] [place] Urea nitrogen [Mass/Vol]Orde red By: Bola Meraz on 09-02-2024 Serum or plasma urea nitrogen measurement (mass/volume) 43 mg/dL High 7-18 [facility] [place] White blood cell (WBC) count Ordered By: Bola Meraz on 09-02-2024 WBC (Bld) [#/Vol] 16.5 10*3/uL High 4.4-11.0 [facility] White blood cell (WBC) count 16.5 K/mm3 High 4.4-11.0 [facility] [place] ALP [Catalytic activity/Vol] Ordered By: Maria Guadalupe Shore on 08-30-2024 Serum or plasma alkaline phosphatase measurement 143 U/L High 45-117 [facility] [place] ALT [Catalytic activity/Vol] Ordered By: Maria Guadalupe Shore on 08-30-2024 Serum or plasma alanine aminotransferase (ALT) measurement 19 U/L 16-61 [facility] [place] Albumin [Mass/Vol]Ordered By : Maria Guadalupe Shore on 08-30-2024 Serum or plasma albumin measurement (mass/volume) 1.9 g/dL Low 3.2-5.0 [facility] [place] Bilirubin directOrdered By: Maria Guadalupe Shore on 08-30-2024 Bilirubin.direct [Mass/Vol] 0.83 mg/dL High 0.00-0.30 [facility] [place] Bilirubin, totalOrdered By: Maria Guadalupe Shore on 08-30-2024 Bilirubin [Mass/Vol] 1.30 mg/dL High 0.20-1.00 [facility] Comment on above: For patients on eltr ombopag therapy, use of Dimension [place] TBIL is not recommended. Bilirubin, total 1.30 mg/dL High 0.20-1.00 [facility] [place] Bilirubin.direct [Mass/Vol]O rdered By: Maria Guadalupe Shore on 08-30-2024 Bilirubin direct 0.83 mg/dL High 0.00-0.30 [facility] [place] Ferritin measurementOrdered By: Maria Guadalupe Shore on 08-30-2024 Ferritin [Mass/Vol] 85 ng/mL 26-388 [facility] Ferritin measurement 85 ng/mL 26-388 [facility] HbA1c (Bld) [Mass fraction]O rdered By: Maria Guadalupe Shore on 08-30-2024 Hemoglobin A1c percentage 7.9 % High 3.8-5.6 [facility] [place] Hemoglobin A1c percentageOrd ered By: Maria Guadalupe Shore on 08-30-2024 HbA1c (Bld) [Mass fraction] 7.9 % High 3.8-5.6 [facility] [place] Comment on above: Normal < 5.7 % Predi abetic 5.7 - 6.4 % Diabetic >or= 6.5 % Please note range changes. Iron (Unsp spec) [Mass/Mass] Ordered By: Maria Guadalupe Shore on 08-30-2024 Iron [Mass/Vol] 62 ug/dL Low 65-175 [facility] [place] Iron measurement (mass/mass) 62 ug/dL Low 65-175 [facility] [place] Iron measurement (mass/mass) Ordered By: Maria Guadalupe Shore on 08-30-2024 Iron (Unsp spec) [Mass/Mass] 62 ug/dL Low 65-175 [facility] [place] Iron saturation [Mass fracti on]Ordered By: Maria Guadalupe Shore on 08-30-2024 Iron Saturation 33.9 % 15.0-55.0 [facility] [place] Serum or plasma iron saturation measurement (mass fraction) 33.9 % 15.0-55.0 [facility] [place] Laboratory - Chemistry and C hemistry - challengeOrdered By: Maria Guadalupe Shore on 08-30-2024 AST [Catalytic activity/Vol] 22 U/L 15-37 [facility] [place] No Panel InformationOrdered By: Maria Guadalupe Mone on 08-30-2024 22 U/L 15-37 [facility] [place] Serum globulin measurementOr dered By: Maria Guadalupe Shore on 08-30-2024 Globulin (S) [Mass/Vol] 3.4 g/dL 2.2-4.2 [facility] Serum globulin measurement 3.4 g/dL 2.2-4.2 [facility] [place] Serum or plasma alanine thomas otransferase (ALT) measurementOrdered By: Maria Guadalupe Shore on 08-30-2024 ALT [Catalytic activity/Vol] 19 U/L 16-61 [facility] [place] Serum or plasma albumin roosevelt urement (mass/volume)Ordered By: Maria Guadalupe Shore 08-30-2024 Albumin [Mass/Vol] 1.9 g/dL Low 3.2-5.0 [facility] Serum or plasma alkaline kendrick sphatase measurementOrdered By: Maria Guadalupe Shore 08-30-2024 ALP [Catalytic activity/Vol] 143 U/L High 45-117 [facility] [facility] [place] Serum or plasma iron saturat ion measurement (mass fraction)Ordered By: Maria Guadalupe Shore on 08-30-2024 Iron saturation [Mass fraction] 33.9 % 15.0-55.0 [facility] [place] TIBCOrdered By: Maria Guadalupe Shore on 08-30-2024 Total Iron Binding Capacity 183 ug/dL Low 250-450 [facility] [place] TIBC 183 ug/dL Low 250-450 [facility] [place] Total proteinOrdered By: Aut umn Mone on 08-30-2024 Protein [Mass/Vol] 5.3 g/dL Low 6.4-8.2 [facility] Total protein 5.3 g/dL Low 6.4-8.2 [facility] [place] Venous blood ammonia measure mentOrdered By: Maria Guadalupe Shore on 08-30-2024 Ammonia (P) [Moles/Vol] 64.0 umol/L High 11 [facility] [place] Venous blood ammonia measurement 64.0 umol/L High [facility] [place] Activated partial thrombopla stin time (aPTT) in platelet poor plasma by coagulation aOrdered By: Luis Carlos Anderson on 08-29-2024 aPTT Coag (PPP) [Time] 40.9 s High 24.1-36.2 [facility] Albumin to globulin ratioOrd ered By: Luis Carlos Anderson on 08-29-2024 Albumin/Globulin [Mass ratio] 0.4 {ratio} Low 0.9-2.4 [facility] [place] Albumin to globulin ratio 0.4 RATIO Low 0.9-2.4 [facility] [place] Bacteria LM.HPF (Urine sed) [#/Area]Ordered By: Luis Carlos Anderson on 08-29-2024 Urine Bacteria RARE /hpf None Seen [facility] [place] Urine sediment bacteria count by microscopy (number/high power field) RARE /hpf None Seen [facility] [place] Bilirubin Test strip Ql (U)O rdered By: Luis Carlos Anderson on 08-29-2024 Bilirubin Ql (U) 1 mg/dL High Negative [facility] [place] Comment on above: COLOR OF URINE MAY A FFECT DIPSTICK RESULTS. Clarity (U)Ordered By: Juan Alberto Anderson on 08-29-2024 Urine clarity Clear Clear [facility] [place] Color (U)Ordered By: Luis Carlos Anderson on 08-29-2024 Urine color determination Yellow Yellow [facility] [place] Creatinine (U) [Mass/Vol]Ord ered By: Maria Guadalupe Shore on 08-29-2024 Urine creatinine measurement (mass/volume) 173.00 mg/dL NO RANGE EST. [facility] [place] Epithelial cells.squamous LM Ql (Urine sed)Ordered By: Luis Carlos Anderson on 08-29-2024 Epithelial cells.squamous LM.HPF (Urine sed) [#/Area] 0 /[HPF] 0-5 [facility] [place] Squamous epithelial cells detection in urine sediment by light microscopy 0 SEEN /hpf 0-5 [facility] [place] Glucose Ql (U)Ordered By: Yaya Anderson on 08-29-2024 Glucose (U) [Mass/Vol] 50 mg/dL High Normal [facility] Urine glucose detection 50 mg/dl High Normal [facility] normalized rat io (INR) calculationOrdered By: Luis Carlos Anderson on 08-29-2024 INR Coag (Bld) [Relative time] 1.7 {INR} [facility] [place] International normalized ratio (INR) calculation 1.7 [facility] [place] Ketones Test strip Ql (U)Ord ered By: Luis Carols Anderson on 08-29-2024 Ketones Ql (U) Negative Negative [facility] [place] Leukocyte esterase Test stri p Ql (U)Ordered By: Luis Carlos Anderson on 08-29-2024 Urine leukocyte esterase detection by dipstick 500 /ul High Negative [facility] [place] Lipase measurementOrdered By : Luis Carlos Anderson on 08-29-2024 Lipase [Catalytic activity/Vol] 26 U/L 13-75 [facility] [place] Comment on above: Please note:LIPASE r evised reference range effective 22. New Lipase methodology. Expected to produce lower values than the previous assay method. NEW Reference Range: 13 - 75 U/L Lipase measurement 26 U/L 13-75 [facility] Magnesium measurementOrdered By: Maria Guadalupe Shore on 08-29-2024 Magnesium [Mass/Vol] 2.7 mg/dL High 1.6-2.6 [facility] Magnesium measurement 2.7 mg/dL High 1.6-2.6 [facility] Microscopic analysis of urin e for red blood cells (RBC)Ordered By: Luis Carlos Anderson on 08-29-2024 Urine RBC 5-10 SEEN /hpf 0-5 [facility] [place] Microscopic analysis of urine for red blood cells (RBC) 5-10 SEEN /hpf 0-5 [facility] [place] Mucus LM Ql (Urine sed)Order ed By: Luis Carlos Anderson on 08-29-2024 Mucus Ql (Urine sed) 1+ /hpf [facility] Mucus detection in urine sediment by light microscopy 1+ /hpf [facility] [place] Nitrite Test strip Ql (U)Ord ered By: Luis Carlos Anderson on 08-29-2024 Nitrite Ql (U) Negative Negative [facility] [place] Phosphorus measurementOrdere d By: Maria Guadalupe Shore on 08-29-2024 Phosphorus Level 4.9 mg/dL 2.5-4.9 [facility] [place] Phosphorus measurement 4.9 mg/dL 2.5-4.9 [facility] Protein Test strip Ql (U)Ord ered By: Luis Carlos Anderson on 08-29-2024 Protein Ql (U) 30 mg/dl High Negative [facility] [place] Urine protein assay by test strip, semi-quantitative 30 mg/dl High Negative [facility] [place] Prothrombin timeOrdered By: Luis Carlos Anderson on 08-29-2024 PT Coag (PPP) [Time] 20.0 s High 11.7-14.9 [facility] Prothrombin time 20.0 SECONDS High 11.7-14.9 [facility] Sodium urOrdered By: Maria Guadalupe Shore on 08-29-2024 Sodium (U) [Moles/Vol] 30 mmol/L Not Establ. [facility] Sodium [Moles/Vol] 30 mmol/L Not Establ. [facility] Sodium ur 30 mmol/L Not Establ. [facility] [place] Specific gravity (U) [Rel de nsity]Ordered By: Luis Carlos Anderson on 08-29-2024 Urine specific gravity measurement 1.015 1.002-1.030 [facility] [place] Squamous epithelial cells de tection in urine sediment by light microscopyOrdered By: Luis Carlos Anderson on 08-29-2024 Epithelial cells.squamous LM Ql (Urine sed) 0 SEEN /hpf 0-5 [facility] [place] Urine blood detectionOrdered By: Luis Carlos Anderson on 08-29-2024 Urine Occult Blood 150 /ul High Negative [facility] Urine blood detection 150 /ul High Negative [facility] Urine clarityOrdered By: Joann Anderson on 08-29-2024 Clarity (U) Clear Clear [facility] [place] Urine color determinationOrd ered By: Luis Carlos Anderson on 08-29-2024 Color (U) Yellow Yellow [facility] [place] Urine creatinine measurement (mass/volume)Ordered By: Maria Guadalupe White on 08-29-2024 Creatinine (U) [Mass/Vol] 173.00 mg/dL NO RANGE EST. [facility] [place] Urine cultureOrdered By: Joann Anderson on 08-29-2024 Bacteria identified Cx Nom (U) Culture exhibits no growth. [facility] [place] Urine culture Culture exhibits no growth. [facility] [place] Urine glucose detectionOrder ed By: Luis Carlos Anderson on 08-29-2024 Glucose Ql (U) 50 mg/dl High Normal [facility] [place] Urine ketones detection by t est stripOrdered By: Luis Carlos Anderson on 08-29-2024 Urine ketones detection by test strip Negative Negative [facility] [place] Urine leukocyte esterase det ection by dipstickOrdered By: Luis Carlos Anderson on 08-29-2024 Leukocyte esterase Test strip Ql (U) 500 /ul High Negative [facility] [place] Urine pHOrdered By: Luis Carlos hammond on 08-29-2024 pH (U) 6.0 [pH] 5.0 - 8.0 [facility] [place] Urine sediment bacteria coun t by microscopy (number/high power field)Ordered By: Luis Carlos Anderson on 08-29-2024 Bacteria LM.HPF (Urine sed) [#/Area] RARE /hpf None Seen [facility] [place] Urine specific gravity measu rementOrdered By: Luis Carlos Anderson on 08-29-2024 Specific gravity (U) [Rel density] 1.015 1.002-1.030 [facility] [place] Urine total bilirubin detect ion by test stripOrdered By: Luis Carlos Anderson on 08-29-2024 Urine total bilirubin detection by test strip 1 mg/dL High Normal [facility] [place] Urine urobilinogen measureme ntOrdered By: Luis Carlos Anderson on 08-29-2024 Urobilinogen Ql (U) 1 mg/dl High Normal [facility] Urobilinogen Ql (U)Ordered B y: Luis Carlos Anderson on 08-29-2024 Urobilinogen (U) [Mass/Vol] 1 mg/dL High Normal [facility] [place] White blood cell countOrdere d By: Luis Carlos Anderson on 08-29-2024 Urine WBC 10-25 SEEN /hpf 0-5 [facility] [place] White blood cell count 10-25 SEEN /hpf 0-5 [facility] [place] White blood cell count 10-25 SEEN /hpf 0-5 [facility] [place] aPTT Coag (PPP) [Time]Ordere d By: Luis Carlos Anderson on 08-29-2024 aPTT Coag (Bld) [Time] 40.9 s High 24.1-36.2 [facility] Activated partial thromboplastin time (aPTT) in platelet poor plasma by coagulation a 40.9 Seconds High 24.1-36.2 [facility] [place] pH (U)Ordered By: Ashu on 08-29-2024 Urine pH 6.0 5.0 - 8.0 [facility] [place] Vital Signs Date Time Vital Sign Value Performing Clinician Facility 02-08-2025 01:26-0400 Body temperature 97.6 [degF] No Primary Care Physician [facility] [place] 02-08-2025 01:26-0400 Diastolic blood pressure 63 mm[Hg] No Primary Care Physician [facility] [place] 02-08-2025 01:26-0400 Heart rate 62 /min No Primary Care Physician [facility] [place] 02-08-2025 01:26-0400 Respiratory rate 18 /min No Primary Care Physician [facility] [place] 02-08-2025 01:26-0400 SaO2% (BldA) [Mass fraction] 100 % No Primary Care Physician [facility] [place] 02-08-2025 01:26-0400 Systolic blood pressure 97 mm[Hg] No Primary Care Physician [facility] [place] 02-07-2025 22:20-0400 Body mass index (BMI) [Ratio] 34.8 kg/m2 No Primary Care Physician [facility] [place] 02-07-2025 22:20-0400 Body weight 107.1 kg No Primary Care Physician [facility] [place] 02-07-2025 19:24-0400 Body height 175.26 cm No Primary Care Physician [facility] [place] 01-31-2025 18:35-0400 Body temperature 98.1 [degF] No Primary Care Physician [facility] [place] 01-31-2025 18:35-0400 Diastolic blood pressure 86 mm[Hg] No Primary Care Physician [facility] [place] 01-31-2025 18:35-0400 Heart rate 100 /min No Primary Care Physician [facility] [place] 01-31-2025 18:35-0400 Respiratory rate 16 /min No Primary Care Physician [facility] [place] 01-31-2025 18:35-0400 SaO2% (BldA) [Mass fraction] 100 % No Primary Care Physician [facility] [place] 01-31-2025 18:35-0400 Systolic blood pressure 127 mm[Hg] No Primary Care Physician [facility] [place] 01-31-2025 09:49-0400 Body height 182.88 cm No Primary Care Physician [facility] [place] 01-31-2025 09:49-0400 Body weight 110.3 kg No Primary Care Physician [facility] [place] 01-28-2025 09:46-0400 Body mass index (BMI) [Ratio] 33 kg/m2 No Primary Care Physician [facility] [place] 01-28-2025 09:00-0400 Body temperature 98 [degF] No Primary Care Physician [facility] [place] 01-28-2025 09:00-0400 Diastolic blood pressure 67 mm[Hg] No Primary Care Physician [facility] [place] 01-28-2025 09:00-0400 Heart rate 106 /min No Primary Care Physician [facility] [place] 01-28-2025 09:00-0400 Respiratory rate 15 /min No Primary Care Physician [facility] [place] 01-28-2025 09:00-0400 SaO2% (BldA) [Mass fraction] 100 % No Primary Care Physician [facility] [place] 01-28-2025 09:00-0400 Systolic blood pressure 125 mm[Hg] No Primary Care Physician [facility] [place] 01-28-2025 02:56-0400 Body height 187.96 cm No Primary Care Physician [facility] [place] 01-28-2025 02:56-0400 Body mass index (BMI) [Ratio] 31.7 kg/m2 No Primary Care Physician [facility] [place] 01-28-2025 02:56-0400 Body weight 112.2 kg No Primary Care Physician [facility] [place] 01-21-2025 13:00-0400 Body temperature 97.7 [degF] No Primary Care Physician [facility] [place] 01-21-2025 13:00-0400 Diastolic blood pressure 60 mm[Hg] No Primary Care Physician [facility] [place] 01-21-2025 13:00-0400 Heart rate 91 /min No Primary Care Physician [facility] [place] 01-21-2025 13:00-0400 Respiratory rate 18 /min No Primary Care Physician [facility] [place] 01-21-2025 13:00-0400 SaO2% (BldA) [Mass fraction] 97 % No Primary Care Physician [facility] [place] 01-21-2025 13:00-0400 Systolic blood pressure 100 mm[Hg] No Primary Care Physician [facility] [place] 01-21-2025 05:13-0400 Body mass index (BMI) [Ratio] 35.8 kg/m2 No Primary Care Physician [facility] [place] 01-21-2025 05:13-0400 Body weight 110.1 kg No Primary Care Physician [facility] [place] 01-17-2025 14:51-0400 Body height 175.26 cm No Primary Care Physician [facility] [place] 01-09-2025 14:01-0400 Heart rate 69 /min No Primary Care Physician [facility] [place] 01-09-2025 14:01-0400 Respiratory rate 16 /min No Primary Care Physician [facility] [place] 01-09-2025 14:01-0400 SaO2% (BldA) [Mass fraction] 100 % No Primary Care Physician [facility] [place] 01-09-2025 14:00-0400 Diastolic blood pressure 59 mm[Hg] No Primary Care Physician [facility] [place] 01-09-2025 14:00-0400 Systolic blood pressure 107 mm[Hg] No Primary Care Physician [facility] [place] 01-09-2025 13:04-0400 Body temperature 98 [degF] No Primary Care Physician [facility] [place] 01-09-2025 10:10-0400 Body height 175.26 cm No Primary Care Physician [facility] [place] 01-09-2025 10:10-0400 Body mass index (BMI) [Ratio] 29.5 kg/m2 No Primary Care Physician [facility] [place] 01-09-2025 10:10-0400 Body weight 90.6 kg No Primary Care Physician [facility] [place] 01-05-2025 16:00-0400 Body temperature 98.1 [degF] No Primary Care Physician [facility] [place] 01-05-2025 16:00-0400 Diastolic blood pressure 60 mm[Hg] No Primary Care Physician [facility] [place] 01-05-2025 16:00-0400 Heart rate 73 /min No Primary Care Physician [facility] [place] 01-05-2025 16:00-0400 Respiratory rate 16 /min No Primary Care Physician [facility] [place] 01-05-2025 16:00-0400 SaO2% (BldA) [Mass fraction] 94 % No Primary Care Physician [facility] [place] 01-05-2025 16:00-0400 Systolic blood pressure 103 mm[Hg] No Primary Care Physician [facility] [place] 01-05-2025 04:44-0400 Body mass index (BMI) [Ratio] 29.9 kg/m2 No Primary Care Physician [facility] [place] 01-05-2025 04:44-0400 Body weight 92.2 kg No Primary Care Physician [facility] [place] 01-02-2025 10:11-0400 Body height 175.26 cm No Primary Care Physician [facility] [place] 01-02-2025 06:34-0400 Body temperature 97.8 [degF] No Primary Care Physician [facility] [place] 01-02-2025 06:34-0400 Diastolic blood pressure 73 mm[Hg] No Primary Care Physician [facility] [place] 01-02-2025 06:34-0400 Heart rate 68 /min No Primary Care Physician [facility] [place] 01-02-2025 06:34-0400 Respiratory rate 20 /min No Primary Care Physician [facility] [place] 01-02-2025 06:34-0400 SaO2% (BldA) [Mass fraction] 100 % No Primary Care Physician [facility] [place] 01-02-2025 06:34-0400 Systolic blood pressure 105 mm[Hg] No Primary Care Physician [facility] [place] 01-02-2025 02:59-0400 Body height 175.26 cm No Primary Care Physician [facility] [place] 01-02-2025 02:59-0400 Body mass index (BMI) [Ratio] 27.5 kg/m2 No Primary Care Physician [facility] [place] 01-02-2025 02:59-0400 Body weight 84.5 kg No Primary Care Physician [facility] [place] 12-30-2024 05:24-0400 Body temperature 97.9 [degF] No Primary Care Physician [facility] [place] 12-30-2024 05:24-0400 Diastolic blood pressure 52 mm[Hg] No Primary Care Physician [facility] [place] 12-30-2024 05:24-0400 Heart rate 71 /min No Primary Care Physician [facility] [place] 12-30-2024 05:24-0400 Respiratory rate 18 /min No Primary Care Physician [facility] [place] 12-30-2024 05:24-0400 SaO2% (BldA) [Mass fraction] 93 % No Primary Care Physician [facility] [place] 12-30-2024 05:24-0400 Systolic blood pressure 93 mm[Hg] No Primary Care Physician [facility] [place] 12-30-2024 01:07-0400 Body height 175.26 cm No Primary Care Physician [facility] [place] 12-30-2024 01:07-0400 Body mass index (BMI) [Ratio] 28.4 kg/m2 No Primary Care Physician [facility] [place] 12-30-2024 01:07-0400 Body weight 87.3 kg No Primary Care Physician [facility] [place] 12-26-2024 14:27-0400 Body temperature 97 [degF] No Primary Care Physician [facility] [place] 12-26-2024 14:27-0400 Diastolic blood pressure 58 mm[Hg] No Primary Care Physician [facility] [place] 12-26-2024 14:27-0400 Heart rate 64 /min No Primary Care Physician [facility] [place] 12-26-2024 14:27-0400 Respiratory rate 16 /min No Primary Care Physician [facility] [place] 12-26-2024 14:27-0400 SaO2% (BldA) [Mass fraction] 97 % No Primary Care Physician [facility] [place] 12-26-2024 14:27-0400 Systolic blood pressure 90 mm[Hg] No Primary Care Physician [facility] [place] 12-26-2024 10:00-0400 Body height 175.26 cm No Primary Care Physician [facility] [place] 12-26-2024 10:00-0400 Body mass index (BMI) [Ratio] 29.7 kg/m2 No Primary Care Physician [facility] [place] 12-26-2024 10:00-0400 Body weight 91.4 kg No Primary Care Physician [facility] [place] 12-02-2024 12:13-0400 Body temperature 98.7 [degF] No Primary Care Physician [facility] [place] 12-02-2024 12:13-0400 Diastolic blood pressure 68 mm[Hg] No Primary Care Physician [facility] [place] 12-02-2024 12:13-0400 Heart rate 86 /min No Primary Care Physician [facility] [place] 12-02-2024 12:13-0400 Respiratory rate 18 /min No Primary Care Physician [facility] [place] 12-02-2024 12:13-0400 SaO2% (BldA) [Mass fraction] 97 % No Primary Care Physician [facility] [place] 12-02-2024 12:13-0400 Systolic blood pressure 117 mm[Hg] No Primary Care Physician [facility] [place] 12-02-2024 02:57-0400 Body mass index (BMI) [Ratio] 33 kg/m2 No Primary Care Physician [facility] [place] 12-02-2024 02:57-0400 Body weight 101.6 kg No Primary Care Physician [facility] [place] 11-29-2024 09:53-0400 Body height 175.26 cm No Primary Care Physician [facility] [place] 11-25-2024 18:31-0400 Body temperature 98.2 [degF] No Primary Care Physician [facility] [place] 11-25-2024 18:31-0400 Diastolic blood pressure 80 mm[Hg] No Primary Care Physician [facility] [place] 11-25-2024 18:31-0400 Heart rate 97 /min No Primary Care Physician [facility] [facility] [place] 11-25-2024 18:31-0400 Respiratory rate 18 /min No Primary Care Physician [facility] [place] 11-25-2024 18:31-0400 SaO2% (BldA) [Mass fraction] 98 % No Primary Care Physician [facility] [place] 11-25-2024 18:31-0400 Systolic blood pressure 122 mm[Hg] No Primary Care Physician [facility] [place] 11-24-2024 15:17-0400 Body weight 102.7 kg No Primary Care Physician [facility] [place] 11-21-2024 05:32-0400 Body mass index (BMI) [Ratio] 33.4 kg/m2 No Primary Care Physician [facility] [place] 11-21-2024 05:00-0400 Heart rate 77 /min No Primary Care Physician [facility] [place] 11-21-2024 04:51-0400 Body temperature 98.2 [degF] No Primary Care Physician [facility] [place] 11-21-2024 04:51-0400 Diastolic blood pressure 57 mm[Hg] No Primary Care Physician [facility] [place] 11-21-2024 04:51-0400 Respiratory rate 16 /min No Primary Care Physician [facility] [place] 11-21-2024 04:51-0400 SaO2% (BldA) [Mass fraction] 97 % No Primary Care Physician [facility] [place] 11-21-2024 04:51-0400 Systolic blood pressure 127 mm[Hg] No Primary Care Physician [facility] [place] 11-21-2024 01:32-0400 Body height 175.26 cm No Primary Care Physician [facility] [place] 11-21-2024 01:32-0400 Body mass index (BMI) [Ratio] 34.3 kg/m2 No Primary Care Physician [facility] [place] 11-21-2024 01:32-0400 Body weight 105.4 kg No Primary Care Physician [facility] [place] 11-12-2024 18:03-0400 SaO2% (BldA) [Mass fraction] 99 % KATHIE LEMOS [facility] Comment on above: Order Comment: Specimen Type: ARTERIAL B LOOD SPECIMENOrdering Facility: [facility] Address: [address] [place] [address] Performed By: #### A LLBG ####[facility] LABCLIA [id number] [place] [address] [place] 11-10-2024 23:40-0400 Body temperature 97.8 [degF] No Primary Care Physician [facility] [place] 11-10-2024 23:40-0400 Diastolic blood pressure 70 mm[Hg] No Primary Care Physician [facility] [place] 11-10-2024 23:40-0400 Heart rate 110 /min No Primary Care Physician [facility] [place] 11-10-2024 23:40-0400 Respiratory rate 18 /min No Primary Care Physician [facility] [place] 11-10-2024 23:40-0400 SaO2% (BldA) [Mass fraction] 97 % No Primary Care Physician [facility] [place] 11-10-2024 23:40-0400 Systolic blood pressure 116 mm[Hg] No Primary Care Physician [facility] [place] 11-10-2024 04:54-0400 Body mass index (BMI) [Ratio] 36.7 kg/m2 No Primary Care Physician [facility] [place] 11-10-2024 04:54-0400 Body weight 112.8 kg No Primary Care Physician [facility] [place] 11-09-2024 14:30-0400 Body height 175.26 cm No Primary Care Physician [facility] [place] 10-29-2024 01:23-0400 Body temperature 97.4 [degF] No Primary Care Physician [facility] [place] 10-29-2024 01:23-0400 Diastolic blood pressure 54 mm[Hg] No Primary Care Physician [facility] [place] 10-29-2024 01:23-0400 Heart rate 77 /min No Primary Care Physician [facility] [place] 10-29-2024 01:23-0400 Respiratory rate 14 /min No Primary Care Physician [facility] [place] 10-29-2024 01:23-0400 SaO2% (BldA) [Mass fraction] 97 % No Primary Care Physician [facility] [place] 10-29-2024 01:23-0400 Systolic blood pressure 97 mm[Hg] No Primary Care Physician [facility] [place] 10-28-2024 21:43-0400 Body mass index (BMI) [Ratio] 30.4 kg/m2 No Primary Care Physician [facility] [place] 10-28-2024 21:43-0400 Body weight 93.1 kg No Primary Care Physician [facility] [place] 10-28-2024 17:13-0400 Body height 175.01 cm No Primary Care Physician [facility] [place] 10-04-2024 21:45-0500 Diastolic blood pressure 89 mm[Hg] Maurice wen MD Work Phone: [facility] 10-04-2024 21:45-0500 Heart rate 94 /min Maurice Fitch MD Work Phone: [facility] 10-04-2024 21:45-0500 Respiratory rate 18 /min Maurice Fitch MD Work Phone: [facility] 10-04-2024 21:45-0500 SaO2% (BldA) [Mass fraction] 100 % Maurice Fitch MD Work Phone: [facility] 10-04-2024 21:45-0500 Systolic blood pressure 152 mm[Hg] Maurice parada MD Work Phone: [facility] 10-04-2024 12:03-0500 Body temperature 97.59 [degF] Maurice Fitch MD Work Phone: [facility] 10-04-2024 12:03-0500 Body weight 117.48 kg Maurice Fitch MD Work Phone: [facility] 09-29-2024 10:21-0500 Body temperature 97.3 [degF] No Primary Care Physician [facility] [place] 09-29-2024 10:21-0500 Diastolic blood pressure 74 mm[Hg] No Primary Care Physician [facility] [place] 09-29-2024 10:21-0500 Heart rate 81 /min No Primary Care Physician [facility] [place] 09-29-2024 10:21-0500 Respiratory rate 18 /min No Primary Care Physician [facility] [place] 09-29-2024 10:21-0500 Systolic blood pressure 138 mm[Hg] No Primary Care Physician [facility] [place] 09-15-2024 03:49-0500 Body temperature 97.8 [degF] No Primary Care Physician [facility] [place] 09-15-2024 03:49-0500 Diastolic blood pressure 70 mm[Hg] No Primary Care Physician [facility] [place] 09-15-2024 03:49-0500 Heart rate 80 /min No Primary Care Physician [facility] [place] 09-15-2024 03:49-0500 Respiratory rate 17 /min No Primary Care Physician [facility] [place] 09-15-2024 03:49-0500 SaO2% (BldA) [Mass fraction] 96 % No Primary Care Physician [facility] [place] 09-15-2024 03:49-0500 Systolic blood pressure 142 mm[Hg] No Primary Care Physician [facility] [place] 09-14-2024 04:07-0500 Body mass index (BMI) [Ratio] 36.7 kg/m2 No Primary Care Physician [facility] [place] 09-14-2024 04:07-0500 Body weight 112.8 kg No Primary Care Physician [facility] [place] 09-10-2024 14:03-0500 Body height 175.26 cm No Primary Care Physician [facility] [place] 09-07-2024 01:24-0500 Inhaled oxygen concentration 21 % No Primary Care Physician [facility] [place] 09-06-2024 05:00-0500 Inhaled oxygen flow rate 8 L/min No Primary Care Physician [facility] [place] 09-02-2024 15:36-0500 Body weight 104 kg No Primary Care Physician [facility] [place] 09-02-2024 14:54-0500 Body temperature 98.1 [degF] No Primary Care Physician [facility] [place] 09-02-2024 14:54-0500 Diastolic blood pressure 62 mm[Hg] No Primary Care Physician [facility] [place] 09-02-2024 14:54-0500 Heart rate 60 /min No Primary Care Physician [facility] [place] 09-02-2024 14:54-0500 Respiratory rate 18 /min No Primary Care Physician [facility] [place] 09-02-2024 14:54-0500 SaO2% (BldA) [Mass fraction] 99 % No Primary Care Physician [facility] [place] 09-02-2024 14:54-0500 Systolic blood pressure 118 mm[Hg] No Primary Care Physician [facility] [place] 09-02-2024 03:57-0500 Body mass index (BMI) [Ratio] 33.8 kg/m2 No Primary Care Physician [facility] [place] 08-21-2024 16:33-0500 Body temperature 98.5 [degF] No Primary Care Physician [facility] [place] 08-21-2024 16:33-0500 Diastolic blood pressure 78 mm[Hg] No Primary Care Physician [facility] [place] 08-21-2024 16:33-0500 Heart rate 61 /min No Primary Care Physician [facility] [place] 08-21-2024 16:33-0500 Respiratory rate 12 /min No Primary Care Physician [facility] [place] 08-21-2024 16:33-0500 SaO2% (BldA) [Mass fraction] 97 % No Primary Care Physician [facility] [place] 08-21-2024 16:33-0500 Systolic blood pressure 114 mm[Hg] No Primary Care Physician [facility] [place] 08-21-2024 13:52-0500 Body mass index (BMI) [Ratio] 33 kg/m2 No Primary Care Physician [facility] [place] 08-21-2024 13:52-0500 Body weight 101.5 kg No Primary Care Physician [facility] [place] Encounters Encounter Date Encounter Type Care Provider Facility Start: 02-11-2025 ambulatory [facility] Facility:[facility] Start: 02-07-2025 End: 02-08-2025 No Primary Care Physician -Emergency Department Work Phone: Start: 02-07-2025 End: 02-08-2025 Emergency department patient visit No Primary Care Physician -Emergency Department Start: 01-31-2025 Dr. Yaritza Leo [facility] Work Phone: Start: 01-30-2025 [facility] Work Phone: Start: 01-29-2025 Dr. Yaritza Leo [facility] Inpatient Physicians Work Phone: Start: 01-28-2025 ambulatory Boone Izquierdo Facility:[facility] Start: 01-28-2025 End: 01-31-2025 Evaluation and management of inpatient No Primary Care Physician [facility] [place] Work Phone: Start: 01-28-2025 End: 01-31-2025 Dr. Boone Izquierdo [facility] Inpatient Physicians Work Phone: Start: 01-21-2025 Dr. Anurag Irene MD -[facility] Inpatient Physicians Work Phone: Start: 01-20-2025 Dr. Anurag Irene MD -[facility] Inpatient Physicians Work Phone: Start: 01-19-2025 Dr. Anurag Irene MD -[facility] Inpatient Physicians Work Phone: Start: 01-18-2025 Dr. Anurag Irene MD -[facility] Inpatient Physicians Work Phone: Start: 01-17-2025 Dr. Anurag Irene MD -[facility] Inpatient Physicians Work Phone: Start: 01-16-2025 Dr. Cielo Tovar MD - [place] [facility] Work Phone: Start: 01-15-2025 Dr. Cielo Tovar MD [facility] Inpatient Physicians Work Phone: Start: 01-14-2025 Dr. Cielo Tovar MD - [place] [facility] Work Phone: Start: 01-13-2025 Dr. Cielo Tovar MD [facility] Inpatient Physicians Work Phone: Start: 01-12-2025 Dr. Cielo Tovar MD - [place] [facility] Work Phone: Start: 01-11-2025 Dr. Jefferson Malave MD - [facility] Start: 01-11-2025 Dr. Cielo Tovar MD - [place] [facility] Work Phone: Start: 01-11-2025 Dr. Bola Meraz DO [facility] Start: 01-10-2025 Dr. Cielo Tovar MD [facility] Inpatient Physicians Work Phone: Start: 01-09-2025 ambulatory Yaritza Leo Facility[facility] Start: 01-09-2025 End: 01-21-2025 Evaluation and management of inpatient No Primary Care Physician [facility] [place] Work Phone: Start: 01-09-2025 End: 01-21-2025 Dr. Yaritza Leo DO -Intensive Care Unit Work Phone: Start: 01-05-2025 Dr. Hill Acuña MD -[facility] Inpatient Physicians Work Phone: Start: 01-04-2025 Dr. Hill Acuña MD -[facility] Inpatient Physicians Work Phone: Start: 01-03-2025 Dr. Hill Acuña MD -[facility] Inpatient Physicians Work Phone: Start: 01-02-2025 ambulatory Buster Fuchs Fac ility:[facility] Start: 01-02-2025 End: 01-05-2025 Evaluation and management of inpatient No Primary Care Physician [facility] [place] Work Phone: Start: 01-02-2025 End: 01-05-2025 Dr. Buster Fuchs MD -Progressive Care Unit Work Phone: Start: 12-30-2024 End: 12-30-2024 No Primary Care Physician -Emergency Department Work Phone: Start: 12-30-2024 End: 12-30-2024 Emergency department patient visit No Primary Care Physician [facility] [place] Work Phone: Start: 12-26-2024 End: 12-26-2024 No Primary Care Physician -Emergency Department Work Phone: Start: 12-26-2024 End: 12-26-2024 Emergency department patient visit No Primary Care Physician [facility] [place] Work Phone: Start: 12-15-2024 End: 12-15-2024 ambulatory No Primary Care Physician [facility] [place] Work Phone: Start: 12-15-2024 End: 12-15-2024 Josy Elias NP-C -Ultrasound [facility] Work Phone: Start: 12-15-2024 End: 12-15-2024 ambulatory [facility] Facility:[facility] [place] Start: 12-07-2024 End: 12-10-2024 ambulatory Eva Pichardo MD Work Phone: Urology Start: 12-07-2024 End: 12-07-2024 Josy Elias NP-C -[facility] Start: 12-07-2024 End: 12-07-2024 ambulatory [facility] Facility:[facility] [place] Start: 12-02-2024 Dr. Hill Acuña MD -[facility] Work Phone: Start: 12-01-2024 Dr. Hill Acuña MD - [facility] Work Phone: Start: 11-30-2024 Dr. Hill Acuña MD - [facility] Work Phone: Start: 11-29-2024 Dr. Hill Acuña MD - [facility] Work Phone: Start: 11-28-2024 ambulatory Kathie Lemos Facility[facility] Start: 11-28-2024 End: 12-02-2024 Evaluation and management of inpatient [facility] [place] Start: 11-28-2024 End: 12-02-2024 Dr. Hill Acuña MD -Progressive Care Unit Work Phone: Start: 11-25-2024 Dr. Anurag Irene MD -[facility] Inpatient Physicians Work Phone: Start: 11-24-2024 Dr. Anurag Irene MD -[facility] Inpatient Physicians Work Phone: Start: 11-23-2024 ambulatory Jae Ash Fac ility:[facility] Start: 11-23-2024 End: 11-25-2024 Evaluation and management of inpatient Jae Ash Facility:[facility] [place] Start: 11-23-2024 End: 11-25-2024 Dr. Anurag Irene MD -Medical Surgical 3 Work Phone: Start: 11-22-2024 Dr. Anurag Irene MD -[facility] Inpatient Physicians Work Phone: Start: 11-21-2024 ambulatory Jae Ash Fac ility:[facility] Start: 11-21-2024 observation encounter No Prima ry Care Physician [facility] [place] Work Phone: Start: 11-21-2024 Dr. Jae Ash DO -Medical Surgical 3 Work Phone: Start: 11-18-2024 Patient encounter status Jeremi Abreu RN Work Phone: [facility] Work Phone: Start: 11-18-2024 End: 11-18-2024 Telephone encounter Jeremi Abreu RN Work Phone: Transplant Center Comment on above: Outcome Liver Transp lant Selection Committee Start: 11-15-2024 End: 11-15-2024 Evaluation and management of inpatient Izabela Harvey DDS Work Phone: Dentistry Comment on above: Liver transplant can didate (Primary Dx); Pre-operative clearance Start: 11-15-2024 End: 11-15-2024 Preoperative state Izabela Harvey DDS Work Phone: [facility] Start: 11-15-2024 End: 11-15-2024 Social Work Marah Arauz INDUSTRIAL RELATIONS DIRECTOR Work Phone: Transplant Center Start: 11-12-2024 End: 11-12-2024 Patient encounter status Lizett Guzman [facility] Start: 11-12-2024 End: 11-12-2024 Orders Only Liver Txp Coordinator Work Phone: Transplant Center Comment on above: 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 Kathie Lemos MD -[facility] Work Phone: Start: 11-09-2024 Dr. Kathie Lemos MD -[facility] Work Phone: Start: 11-08-2024 Dr. Kathie Lemos MD -[facility] Work Phone: Start: 11-07-2024 Dr. Hill Acuña MD -[facility] Work Phone: Start: 11-06-2024 Dr. Hill Acuña MD -[facility] Work Phone: Start: 11-05-2024 Dr. Hill Acuña MD -[facility] Work Phone: Start: 11-04-2024 Dr. Hill Acuña MD -[facility] Inpatient Physicians Work Phone: Start: 11-03-2024 Dr. Hill Acuña MD -[facility] Inpatient Physicians Work Phone: Start: 11-02-2024 Dr. Hill Acuña MD -[facility] Inpatient Physicians Work Phone: Start: 11-01-2024 Dr. Hill Acuña MD -[facility] Inpatient Physicians Work Phone: Start: 11-01-2024 Niranjan [facility] Start: 10-31-2024 Dr. Buster Fuchs MD -[place] [facility] Work Phone: Start: 10-30-2024 Niranjan [facility] Start: 10-30-2024 Dr. Buster Fuchs MD [facility] Inpatient Physicians Work Phone: Start: 10-29-2024 Dr. Bola Meraz [facility] Start: 10-29-2024 ambulatory Hill Acuña Facility:[facility] Start: 10-29-2024 End: 11-11-2024 Evaluation and management of inpatient Dr. Hill Caro DO -Intensive Care Unit Work Phone: Start: 10-29-2024 End: 11-11-2024 Dr. Kathie Lemos MD -Progressive Care Unit Work Phone: Start: 10-19-2024 ambulatory No Primary Car e Physician Facility:[facility] [place] Start: 10-04-2024 End: 10-04-2024 Emergency department patient visit MAURICE FITCH [facility] Emergency Medicine Comment on above: Other ascites (Prima ry Dx); Abdominal pain, generalized; Other cirrhosis of liver; Peripheral edema; Coagulopathy (Multi); Hyperbilirubinemia; Cirrhosis of liver with ascites, unspecified hepatic cirrhosis type (Multi) Start: 09-29-2024 ambulatory No Primary Car e Physician Facility:[facility] Start: 09-29-2024 Non-patient / Non-visit Jasmine nunez NP-C -[facility] Start: 09-29-2024 Jasmineannette Morocho DIRECTOR OF ARCHITECTURE-C - [facility] Start: 09-29-2024 End: 09-29-2024 ambulatory No Primary Care Physician [facility] [place] Work Phone: Start: 09-29-2024 End: 09-29-2024 Patient encounter procedure No Primary Care Physician -Ultrasound, [facility] Work Phone: Start: 09-29-2024 End: 09-29-2024 No Primary Care Physician -Ultrasound, [facility] Work Phone: Start: 09-29-2024 End: 09-29-2024 ambulatory No Primary Care Physician Facility:[facility] [place] Start: 09-14-2024 Non-patient / Non-visit Dr. Boone James [facility] Inpatient Physicians Work Phone: Start: 09-14-2024 Dr. Boone Izquierdo [facility] Inpatient Physicians Work Phone: Start: 09-13-2024 Non-patient / Non-visit Dr. Boone James [facility] Inpatient Physicians Work Phone: Start: 09-13-2024 Dr. Boone Izquierdo [facility] Inpatient Physicians Work Phone: Start: 09-12-2024 Non-patient / Non-visit Dr. Noonan [facility] Inpatient Physicians Work Phone: Start: 09-12-2024 Dr. Jae Ash [facility] Inpatient Physicians Work Phone: Start: 09-11-2024 Non-patient / Non-visit Dr. Noonan [facility] Inpatient Physicians Work Phone: Start: 09-11-2024 Dr. Jae Ash [facility] Inpatient Physicians Work Phone: Start: 09-10-2024 Non-patient / Non-visit Dr. Noonan [facility] Inpatient Physicians Work Phone: Start: 09-10-2024 Dr. Jae Ash [facility] Inpatient Physicians Work Phone: Start: 09-09-2024 Non-patient / Non-visit Dr. Noonan [facility] Inpatient Physicians Work Phone: Start: 09-09-2024 Dr. Jae Ash [facility] Inpatient Physicians Work Phone: Start: 09-08-2024 Non-patient / Non-visit Dr. Anurag Irene MD [facility] Inpatient Physicians Work Phone: Start: 09-08-2024 Dr. Anurag Irene MD [facility] Inpatient Physicians Work Phone: Start: 09-07-2024 Non-patient / Non-visit Dr. Anurag Irene MD [facility] Inpatient Physicians Work Phone: Start: 09-07-2024 Dr. Anurag Irene MD [facility] Inpatient Physicians Work Phone: Start: 09-06-2024 Non-patient / Non-visit Dr. Anurag Irene MD [facility] Inpatient Physicians Work Phone: Start: 09-06-2024 Dr. Anurag Irene MD [facility] Inpatient Physicians Work Phone: Start: 09-05-2024 [facility] Start: 09-05-2024 End: 09-15-2024 Evaluation and management of inpatient Dr. Boone Izquierdo -Progressive Care Unit Work Phone: Start: 09-05-2024 End: 09-15-2024 Dr. Boone Izquierdo -Progressive Care Unit Work Phone: Start: 09-02-2024 Non-patient / Non-visit Dr. Lissette Carlin [facility] Inpatient Physicians Work Phone: Start: 09-02-2024 Dr. Rick gutierrez [facility] Inpatient Physicians Work Phone: Start: 09-01-2024 Non-patient / Non-visit Niranjan Coles nd [facility] Start: 09-01-2024 Niranjan Friend DO -[facility] Start: 09-01-2024 Non-patient / Non-visit Dr. Lissette Carlin [facility] Inpatient Physicians Work Phone: Start: 09-01-2024 Dr. Rick gutierrez [facility] Inpatient Physicians Work Phone: Start: 08-31-2024 Non-patient / Non-visit Niranjan Frie nd DO -[facility] Start: 08-31-2024 Niranjan Friend DO -[facility] Start: 08-31-2024 Non-patient / Non-visit Dr. Lissette Carlin [facility] Inpatient Physicians Work Phone: Start: 08-31-2024 Dr. Rick gutierrez [facility] Inpatient Physicians Work Phone: Start: 08-31-2024 Non-patient / Non-visit Dr. Bola Patiño own DO -[facility] Start: 08-31-2024 Dr. Bola Meraz DO -[facility] Start: 08-30-2024 Non-patient / Non-visit Niranjan Frie nd DO -[facility] Start: 08-30-2024 Niranjan Friend DO -[facility] Start: 08-30-2024 Non-patient / Non-visit Dr. Lissette Carlin [facility] Work Phone: Start: 08-30-2024 Dr. Rick gutierrez [facility] Work Phone: Start: 08-30-2024 Non-patient / Non-visit Dr. Bola mills DO -[facility] Start: 08-30-2024 Dr. Bola Meraz DO -[facility] Start: 08-29-2024 ambulatory [facility] Facility :[facility] Start: 08-29-2024 End: 09-02-2024 Evaluation and management of inpatient Dr. Rick Carlin DO -Intensive Care Unit Work Phone: Start: 08-29-2024 End: 09-02-2024 Dr. Rick Tereletsky DO -Intensive Care Unit Work Phone: Start: 08-21-2024 End: 08-21-2024 Dr. Danny Hutton DO -Emergency Department Work Phone: Start: 08-21-2024 End: 08-21-2024 Emergency department patient visit Dr. Danny Hutton DO -Emergency Department Work Phone: Procedures Date Procedure Procedure Detail Performing Clinician Start: 02-07-2025 Computed tomography of abdomen and pelvis with intravenous contrast No Primary Care Physician Start: 02-07-2025 Blood count smear mc rscp w/mnl difrntl wbc count No Primary Care Physician Start: 02-07-2025 Mean corpuscular hem oglobin concentration determination No Primary Care Physician Start: 02-07-2025 Nucleated red blood cell count procedure No Primary Care Physician Start: 02-07-2025 Platelet mean volume determination No Primary Care Physician Start: 02-07-2025 Triacylglycerol lipa se measurement No Primary Care Physician Start: 01-31-2025 Estimated creatinine clearance No Primary Care Physician Start: 01-31-2025 Mean corpuscular hem oglobin concentration determination No Primary Care Physician Start: 01-31-2025 Platelet mean volume determination No Primary Care Physician Start: 01-30-2025 Blood count smear mc rscp w/mnl difrntl wbc count No Primary Care Physician Start: 01-30-2025 Nucleated red blood cell count procedure No Primary Care Physician Start: 01-30-2025 Serum inorganic phos phate measurement No Primary Care Physician Start: 01-28-2025 Blood culture No Primar y Care Physician Start: 01-28-2025 Urine culture No Primar y Care Physician Start: 01-28-2025 No Primary Care Physician Start: 01-28-2025 Assay of lactate No Ivonne alex Care Physician Start: 01-28-2025 Computed tomography of abdomen and pelvis with intravenous contrast No Primary Care Physician Start: 01-28-2025 Urine microscopy: red cells No Primary Care Physician Start: 01-28-2025 Urnls dip stick/tabl et reagent auto microscopy No Primary Care Physician Start: 01-28-2025 X-ray of chest, PA a nd lateral views No Primary Care Physician Start: 01-28-2025 Blood count smear mc rscp w/mnl difrntl wbc count No Primary Care Physician Start: 01-28-2025 Calculation of inter national normalized ratio No Primary Care Physician Start: 01-28-2025 Estimated creatinine clearance No Primary Care Physician Start: 01-28-2025 Mean corpuscular hem oglobin concentration determination No Primary Care Physician Start: 01-28-2025 Nucleated red blood cell count procedure No Primary Care Physician Start: 01-28-2025 Platelet mean volume determination No Primary Care Physician Start: 01-28-2025 Triacylglycerol lipa se measurement No Primary Care Physician Start: 01-21-2025 Estimated creatinine clearance No Primary [...] count No Primary Care Physician Start: 01-18-2025 Anaerobic microbial culture No Primary Care Physician Start: 01-18-2025 Gram stain microscopy N o Primary Care Physician Start: 01-18-2025 Measurement of occul t blood in stool specimen using immunoassay No Primary Care Physician Start: 01-18-2025 Microbial culture, body fluid No Primary Care Physician Start: 01-18-2025 Centesis [...] Physician Start: 11-28-2024 Assay of lactate No [facility] Care Physician Start: 11-28-2024 Urine microscopy: red cells No Primary Care Physician Start: 11-28-2024 Urnls dip stick/tabl et reagent auto microscopy No Primary Care Physician Start: 11-28-2024 Urine culture No Primar Care Physician Start: 11-28-2024 Triacylglycerol lipa se [...] Comment: Speci men Type: BLOOD SPECIMENOrdering Facility: [facility] Address: [address] [place] [address] Performed By: #### T SCR ####CC MAIN BLOOD BANKCLIA [id number] [address] Start: 11-16-2024 End: 11-16-2024 Oscar Abreu RN Work Phone: Start: 11-15-2024 Antibody screen KATHIE P IERCE Comment on above: Order Comment: Speci men Type: BLOOD SPECIMENOrdering Facility: [facility] Address: [address] [place] [address] Performed By: #### T SCR ####CC MAIN BLOOD BANKCLIA [id number] [address] [place] Start: 11-13-2024 Lipid 1996 panel - S sandie or Plasma Marah Arauz INDUSTRIAL RELATIONS DIRECTOR Work Phone: Start: 11-12-2024 Antibody screen KATHIE P IERCE Comment on above: Order Comment: Speci men Type: BLOOD SPECIMENOrdering Facility: [facility] Address: [address] [place] [address] Performed By: #### T SCR ####CC MAIN BLOOD BANKCLIA [id number] [address] Start: 11-10-2024 Urine microscopy: red cells [...] Physician Start: 11-09-2024 Assay of lactate No [facility] Care Physician Start: 11-08-2024 Serum inorganic phos phate measurement No Primary Care Physician Start: 11-08-2024 Triacylglycerol lipa se measurement No Primary Care Physician Start: 11-03-2024 Myelocyte percent differential count No Primary Care Physician Start: 10-30-2024 Clostridium difficil e detection No Primary Care Physician Start: 10-30-2024 Lactoferrin measurement No Primary Care Physician Start: 10-30-2024 Nucleic acid assay No [facility] Start: 10-30-2024 Ova OR parasites [...] Primar y Care Physician Start: 10-29-2024 Osmolality measurement, serum [...] Work Phone: Start: 10-04-2024 Prothrombin time Yessenia Olivohio PA-C Work Phone: Start: 10-04-2024 Ct abdomen & pelvis w/contrast material Sriram Olivohio PA-C Work Phone: Start: 10-04-2024 Basic metabolic [...] y Care Physician Start: 09-05-2024 Identification proce stalin for living organism No Primary Care Physician Start: 09-05-2024 Fluoroscopic guidance N o Primary Care Physician Start: 09-05-2024 Introduction to urinary tract No Primary Care Physician Start: 09-05-2024 Assay of lactate No [facility] Care Physician Start: 09-05-2024 Folic [...] Care Physician Start: 09-02-2024 Blood count smear rscp w/mnl difrntl wbc count No Primary [...] DTaP,Tdap,Td Vaccine (2 - Td or Tdap) [facility] Start: 11-17-2029 Prostate specific antigen measurement Prostate Cancer Screening Discussion [facility] Start: 11-13-2029 Lipid panel Lipid Screening [facility] Start: 11-19-2027 Diabetes Screening Diabetes Screening [facility] Start: 11-17-2027 Diabetes Screening Diabetes Screening [facility] Start: 11-15-2027 Diabetes Screening Diabetes Screening [facility] Start: 11-13-2027 Diabetes Screening Diabetes Screening [facility] Start: 11-18-2025 Creatinine measurement Serum Creatinine [facility] Start: 11-16-2025 Creatinine measurement Serum Creatinine [facility] Start: 11-16-2025 Screening for malignant neoplasm of colon [facility] Start: 11-15-2025 Creatinine measurement Serum Creatinine [facility] Start: 11-12-2025 Creatinine measurement Serum Creatinine [facility] Start: 05-16-2025 Hepatitis A Vaccine (2 of 2 - Risk 2-dose series) Hepatitis A Vaccine (2 of 2 - Risk 2-dose series) [facility] Start: 03-02-2025 End: 03-02-2025 Patient encounter procedure 03/02/2025 2:20 PM EDT Office Visit [facility] [address] [place] [address] [place] [address] [place], [place] [id number] Hospital discharge, diabetes mx, need for repeat vaccines, and consideration of CT chest [facility] Comment on above: Hospital discharge, diabetes mx, need fo r repeat vaccines, and consideration of CT chest Start: 02-08-2025 Centesis [facility] Start: 02-08-2025 End: 02-08-2025 [facility] Start: 02-02-2025 End: 02-02-2025 Patient encounter procedure 02/02/2025 9:20 AM EDT Office Visit [facility] [address] [place] [address] Ray Vega MD [address] [place] [address] est care [facility] Comment on above: est care Start: 01-31-2025 Patient discharge [facility] Start: 01-31-2025 Referral to service [facility] Start: 01-31-2025 [facility] Start: 01-29-2025 [facility] Start: 01-28-2025 Blood culture [facility] Start: 01-28-2025 Application of intermittent pneumatic compression device [facility] Start: 01-28-2025 Following clinical pathway protocol [facility] Start: 01-28-2025 Assessment of risk of venous thromboembolism [facility] Start: 01-28-2025 Care regimes management [facility] Start: 01-28-2025 Documentation procedure [facility] Start: 01-28-2025 Insertion of catheter into peripheral vein [facility] Start: 01-28-2025 Notification of physician [facility] Start: 01-28-2025 Providing care according to standard [facility] Start: 01-28-2025 Provision of activity privileges [facility] Start: 01-28-2025 Referral to occupational therapist [facility] Start: 01-28-2025 Referral to service [facility] Start: 01-28-2025 Speech therapy assessment [facility] Start: 01-28-2025 End: 01-28-2025 [facility] Start: 01-28-2025 Admission procedure [facility] Start: 01-28-2025 End: 01-28-2025 [facility] Start: 01-28-2025 End: 01-28-2025 [facility] Start: 01-28-2025 Patient referral to dietitian [facility] Start: 01-21-2025 Patient discharge [facility] Start: 01-18-2025 End: 01-18-2025 Microbial culture, body fluid [facility] Start: 01-18-2025 Care planning and problem solving actions [facility] Start: 01-18-2025 Anaerobic microbial culture [facility] Start: 01-17-2025 [facility] Start: 01-16-2025 [facility] Start: 01-15-2025 [facility] Start: 01-14-2025 Consultation for pain [facility] Start: 01-14-2025 [facility] Start: 01-13-2025 Administration of blood product [facility] Start: 01-13-2025 [facility] Start: 01-12-2025 [facility] Start: 01-11-2025 Application of intermittent pneumatic compression device [facility] Start: 01-11-2025 Referral to general surgeon [facility] Start: 01-11-2025 [facility] Start: 01-10-2025 Care planning and problem solving actions [facility] Start: 01-09-2025 Assessment of risk of venous thromboembolism [facility] Start: 01-09-2025 Cardiac monitoring [facility] Start: 01-09-2025 Catheterization of vein [facility] Start: 01-09-2025 Inhalation therapy procedure [facility] Start: 01-09-2025 Insertion of catheter into peripheral vein [facility] Start: 01-09-2025 Measuring intake and output [facility] Start: 01-09-2025 Notification of physician [facility] Start: 01-09-2025 Patient referral to dietitian [facility] Start: 01-09-2025 Providing care according to standard [facility] Start: 01-09-2025 Referral to occupational therapist [facility] Start: 01-09-2025 Referral to service [facility] Start: 01-09-2025 Vital signs measurements [facility] Start: 01-09-2025 [facility] Start: 01-09-2025 End: 01-09-2025 Following clinical pathway protocol [facility] Start: 01-09-2025 Bacterial nucleic acid assay [facility] Start: 01-09-2025 Verification routine [facility] Start: 01-09-2025 Admission procedure [facility] Start: 01-09-2025 Hospital admission, emergency, from emergency room, medical nature [facility] Start: 01-09-2025 End: 01-09-2025 [facility] Start: 01-09-2025 Consultation [facility] Start: 01-05-2025 Patient discharge [facility] Start: 01-04-2025 [facility] Start: 01-03-2025 End: 01-03-2025 [facility] Start: 01-03-2025 End: 01-03-2025 Care regimes management [facility] Start: 01-03-2025 Notification of physician [facility] Start: 01-03-2025 [facility] Start: 01-02-2025 Application of intermittent pneumatic compression device [facility] Start: 01-02-2025 Ambulation without limitation [facility] Start: 01-02-2025 Assessment of risk of venous thromboembolism [facility] Start: 01-02-2025 Care regimes management [facility] Start: 01-02-2025 Insertion of catheter into peripheral vein [facility] Start: 01-02-2025 Measuring intake and output [facility] Start: 01-02-2025 Notification of physician [facility] Start: 01-02-2025 Providing care according to standard [facility] Start: 01-02-2025 Referral to occupational therapist [facility] Start: 01-02-2025 Referral to service [facility] Start: 01-02-2025 End: 01-02-2025 [facility] Start: 01-02-2025 Admission procedure [facility] Start: 01-02-2025 Verification routine [facility] Start: 01-02-2025 Hospital admission, emergency, from emergency room, medical nature [facility] Start: 01-02-2025 End: 01-02-2025 [facility] Start: 01-02-2025 Consultation [facility] Start: 01-02-2025 Patient referral to dietitian [facility] Start: 12-30-2024 Assay of magnesium [facility] Start: 12-30-2024 Assay of troponin quantitative [facility] Start: 12-30-2024 Basic metabolic panel calcium total [facility] Start: 12-30-2024 Blood count complete auto&auto difrntl wbc [facility] Start: 12-30-2024 Culture bacterial quanttative colony count urine [facility] Start: 12-30-2024 Culture bct isol&prsmptv id isolate ea urine [facility] Start: 12-30-2024 Ecg routine ecg w/least 12 lds trcg only w/o i&r [facility] Start: 12-30-2024 Emergency department visit high/urgent severity [facility] Start: 12-30-2024 Gluc bld gluc mntr dev cleared fda spec home use [facility] Start: 12-30-2024 Iv infusion hydration each additional hour [facility] Start: 12-30-2024 Iv infusion therapy/prophylaxis /dx 1st to 1 hr [facility] Start: 12-30-2024 Radiologic exam chest 2 views [facility] Start: 12-30-2024 Urnls dip stick/tablet reagent auto microscopy [facility] Start: 12-30-2024 [facility] Start: 12-30-2024 End: 12-30-2024 [facility] Start: 12-29-2024 End: 12-29-2024 Patient encounter procedure Endocrinology Comment on above: Diabetes maangement Diabetes maangement/ LVM OF SOONER APPOINTMENT 11/21 Start: 12-26-2024 [facility] Start: 12-26-2024 End: 12-26-2024 [facility] Start: 12-23-2024 End: 12-23-2024 Patient encounter procedure 12/23/2024 9:45 AM EDT Office Visit Vascular Medicine [address] [place] [address] Pamella Frances, FRAME FIXER.STORE KEEPER [address] [place] [address] HOSPITAL FOLLOW UP [facility] Comment on above: HOSPITAL FOLLOW UP Start: 12-12-2024 Hepatitis B Vaccine (2 of 2 - CpG 2-dose series) Hepatitis B Vaccine (2 of 2 - CpG 2-dose series) [facility] Start: 12-07-2024 End: 12-07-2024 Patient encounter procedure 12/07/2024 3:45 PM EDT Office Visit Urology [address] [address] Eva Pichardo MD [address] [place] [address] L ureteral stent, s/p staghorn calculi Urology Comment on above: L ureteral stent, s/p staghorn calculi Start: 12-07-2024 End: 12-07-2024 Patient encounter procedure 12/07/2024 11:20 AM EDT Office Visit [facility] [address] [place] [address] Ksenia Hoyos, FRAME FIXER.STORE KEEPER [address] [place] [address] Hospital discharge, diabetes mx, need for repeat vaccines, and consideration of CT chest [facility] Comment on above: Hospital discharge, diabetes mx, need fo r repeat vaccines, and consideration of CT chest Start: 12-02-2024 Patient discharge [facility] Start: 12-01-2024 Consultation [facility] Start: 11-29-2024 [facility] Start: 11-28-2024 Enteric precautions [facility] Start: 11-28-2024 Application of intermittent pneumatic compression device [facility] Start: 11-28-2024 Following clinical pathway protocol [facility] Start: 11-28-2024 Assessment of risk of venous thromboembolism [facility] Start: 11-28-2024 Care regimes management [facility] Start: 11-28-2024 Insertion of catheter into peripheral vein [facility] Start: 11-28-2024 Measuring intake and output [facility] Start: 11-28-2024 Notification of physician [facility] Start: 11-28-2024 Providing care according to standard [facility] Start: 11-28-2024 Provision of activity privileges [facility] Start: 11-28-2024 Referral to occupational therapist [facility] Start: 11-28-2024 Referral to service [facility] Start: 11-28-2024 End: 11-28-2024 [facility] Start: 11-28-2024 Admission procedure [facility] Start: 11-28-2024 Inhalation therapy procedure [facility] Start: 11-28-2024 Patient referral to dietitian [facility] Start: 11-25-2024 Patient discharge [facility] Start: 11-24-2024 Administration of blood product [facility] Start: 11-23-2024 Admission procedure [facility] Start: 11-22-2024 [facility] Start: 11-21-2024 Care regimes management [facility] Start: 11-21-2024 Notification of physician [facility] Start: 11-21-2024 Following clinical pathway protocol [facility] Start: 11-21-2024 Ambulation without limitation [facility] Start: 11-21-2024 Assessment of risk of venous thromboembolism [facility] Start: 11-21-2024 Insertion of catheter into peripheral vein [facility] Start: 11-21-2024 Measuring intake and output [facility] Start: 11-21-2024 Providing care according to standard [facility] Start: 11-21-2024 Referral to occupational therapist [facility] Start: 11-21-2024 Referral to service [facility] Start: 11-21-2024 End: 11-21-2024 [facility] Start: 11-21-2024 Verification routine [facility] Start: 11-21-2024 Admission procedure [facility] Start: 11-21-2024 Hospital admission, emergency, from emergency room, medical nature [facility] Start: 11-21-2024 End: 11-21-2024 [facility] Start: 11-21-2024 Consultation [facility] Start: 11-18-2024 End: 11-18-2024 Patient encounter procedure 11/18/2024 3:30 PM EDT Office Visit Cardiology [address] [place] [address] G81-25; Liver Tx Evaluation; CONTACT PRECAUTIONS - C-Diff; last of the day Cardiology Comment on above: G81; Liver Tx Evaluation; CONTACT PRECAUTIONS - C-Diff; last of the day Start: 11-17-2024 End: 11-17-2024 Patient encounter procedure Pulmonary Medicine Comment on above: C-diff precuations/RA-2L/Reg WC Start: 11-15-2024 End: 11-15-2024 Patient encounter procedure 11/15/2024 1:15 PM EDT Office Visit Dentistry [address] [address] Izabela Harvey, DDS [address] [place] [address] BEDSIDE - TRANSPLANT [facility] - [id number] - Consult Placed 11/12/24 Dentistry Comment on above: BEDSIDE - TRANSPLANT GREGORIO - [id number] [phone] - Consult Placed 11/12/24 Start: 11-10-2024 Patient discharge [facility] Start: 11-09-2024 Consultation [facility] Start: 11-09-2024 Referral to gastroenterology service [facility] Start: 11-09-2024 Glucose measurement, body fluid [facility] Start: 11-08-2024 Urinary bladder residual urine study [facility] Start: 11-08-2024 [facility] Start: 11-05-2024 Removal of urinary catheter [facility] Start: 11-04-2024 [facility] Start: 10-31-2024 [facility] Start: 10-30-2024 Attention to flatus tube [facility] Start: 10-30-2024 Referral to gastroenterology service [facility] Start: 10-29-2024 Insertion of nasogastric tube [facility] Start: 10-29-2024 Bacteria identified in Blood by Culture Blood Culture [facility] Start: 10-29-2024 Referral to service [facility] Start: 10-29-2024 Application of intermittent pneumatic compression device [facility] Start: 10-29-2024 Following clinical pathway protocol [facility] Start: 10-29-2024 Cardiac monitoring [facility] Start: 10-29-2024 Catheterization of vein [facility] Start: 10-29-2024 Enteric precautions [facility] Start: 10-29-2024 Notification of physician [facility] Start: 10-29-2024 Vital signs measurements [facility] Start: 10-29-2024 [facility] Start: 10-29-2024 End: 10-29-2024 Consultation [facility] Start: 10-29-2024 Clostridioides difficile DNA [Presence] in Unspecified specimen by ANANTH with probe detection [facility] Start: 10-29-2024 Complete ultrasound of kidneys and bladder Kidney and Bladder [facility] Start: 10-29-2024 Lactoferrin [Presence] in Stool by Immunoassay [facility] Start: 10-29-2024 Nucleic acid assay [facility] Start: 10-29-2024 Admission procedure [facility] Start: 10-29-2024 End: 10-29-2024 Hospital admission, emergency, from emergency room, medical nature [facility] Start: 10-29-2024 End: 10-29-2024 [facility] Start: 10-29-2024 Patient referral to dietitian [facility] Start: 10-28-2024 [facility] Start: 10-28-2024 Bacteria identified in Urine by Culture Urine Culture [facility] Start: 09-14-2024 Patient discharge [facility] Start: 09-06-2024 Referral to service [facility] Start: 09-06-2024 Referral to occupational therapist [facility] Start: 09-06-2024 Referral to clip and hanger attacher [facility] Start: 09-06-2024 Consultation [facility] Start: 09-06-2024 Care planning and problem solving actions [facility] Start: 09-06-2024 [facility] Start: 09-05-2024 Application of intermittent pneumatic compression device [facility] Start: 09-05-2024 Continuous positive airway pressure ventilation treatment [facility] Start: 09-05-2024 Cardiac monitoring [facility] Start: 09-05-2024 Care regimes management [facility] Start: 09-05-2024 Catheterization of vein [facility] Start: 09-05-2024 Consultation [facility] Start: 09-05-2024 Notification of physician [facility] Start: 09-05-2024 Vital signs measurements [facility] Start: 09-05-2024 End: 09-05-2024 [facility] Start: 09-05-2024 Following clinical pathway protocol [facility] Start: 09-05-2024 Admission procedure [facility] Start: 09-05-2024 Patient referral to [facility] Start: 09-02-2024 Patient discharge [facility] Start: 08-31-2024 Care planning and problem solving actions [facility] Start: 08-30-2024 [facility] Start: 08-29-2024 Following clinical pathway protocol [facility] Start: 08-29-2024 Assessment of risk of venous thromboembolism [facility] Start: 08-29-2024 Care regimes management [facility] Start: 08-29-2024 Fall prevention [facility] Start: 08-29-2024 Inhalation therapy procedure [facility] Start: 08-29-2024 Insertion of catheter into peripheral vein [facility] Start: 08-29-2024 Measuring intake and output [facility] Start: 08-29-2024 Notification of physician [facility] Start: 08-29-2024 Patient referral to dietitian [facility] Start: 08-29-2024 Providing care according to standard [facility] Start: 08-29-2024 Provision of activity privileges [facility] Start: 08-29-2024 Referral to gastroenterology service [facility] Start: 08-29-2024 Referral to clip and hanger attacher [facility] Start: 08-29-2024 Referral to occupational therapist [facility] Start: 08-29-2024 Referral to service [facility] Start: 08-29-2024 Vital signs measurements [facility] Start: 08-29-2024 End: 08-29-2024 [facility] Start: 08-29-2024 Admission procedure [facility] Start: 08-21-2024 [facility] Start: 04-04-2024 COVID-19 Vaccine ( season) COVID-19 Vaccine ( season) [facility] Start: 04-04-2024 Influenza vaccination Influenza Vaccine (#1) [facility] Start: 2021 Prostate specific antigen measurement Prostate Cancer Screening Discussion [facility] Start: 2016 Zoster Vaccines (1 of 2) Zoster Vaccines (1 of 2) [facility] Start: 2011 Screening for malignant neoplasm of colon [facility] Start: 2001 Lipid panel Lipid Screening [facility] Start: 1988 DTaP/Tdap/Td Vaccines (1 - Tdap) DTaP/Tdap/Td Vaccines (1 - Tdap) [facility] Start: 1985 Hepatitis A Vaccine (1 of 2 - Risk 2-dose series) Hepatitis A Vaccine (1 of 2 - Risk 2-dose series) [facility] Start: 1985 Hepatitis A Vaccines (1 of 2 - Risk 2-dose series) Hepatitis A Vaccines (1 of 2 - Risk 2-dose series) [facility] Start: 1985 Hepatitis B Vaccine (1 of 3 - 19+ 3-dose series) Hepatitis B Vaccine (1 of 3 - 19+ 3-dose series) [facility] Start: 1985 Hepatitis B Vaccines (1 of 3 - 19+ 3-dose series) Hepatitis B Vaccines (1 of 3 - 19+ 3-dose series) [facility] Start: 1985 Pneumococcal vaccination Pneumococcal Vaccine (1 of 2 - PCV) [facility] Start: 1985 Pneumococcal Vaccine: 50+ (1 of 2 - PCV) Pneumococcal Vaccine: 50+ (1 of 2 - PCV) [facility] Start: 1985 Shingrix Vaccine (1 of 2) Shingrix Vaccine (1 of 2) [facility] Start: 1985 Urine microalbumin profile DTaP,Tdap,Td Vaccine (1 - Tdap) [facility] Start: 1984 Annual PCP Team Chronic Disease Visit Annual PCP Team Chronic Disease Visit [facility] Start: 1984 Anxiety Screening Anxiety Screening [facility] Start: 1984 Depression Screening Depression Screening [facility] Start: 1984 Hepatitis C screening Hepatitis C Screening [facility] Start: 1984 HIV screening HIV Screening [facility] Start: 1976 Glaucoma screening Diabetes: Retinopathy Screening [facility] Start: 1967 MMR Vaccines (1 of 1 - Standard series) MMR Vaccines (1 of 1 - Standard series) [facility] Start: 1966 Hemoglobin A1c measurement Diabetes: Hemoglobin A1C [facility] Start: 1966 HIV screening HIV Screening [facility] Start: 1966 Lipid panel Lipid Panel [facility] Start: 1966 Screening for malignant neoplasm of colon [facility] Start: 1966 Urine screening for protein Diabetes: Urine Protein Screening [facility] Start: 1966 Yearly Adult Physical Yearly Adult Physical [facility] Alanine aminotransfe rase [Enzymatic activity/volume] in Serum or Plasma [facility] End: 10-04-2024 Albumin [Mass/volume] in Body fluid [facility] Work Phone: Comment on above: Once (Lab) for 1 Occurrences starting until 10/04/2024 Once for 1 Occurrenc es starting 10/04/2024 until 10/04/2024 Albumin [Mass/volume ] in Serum or Plasma [facility] Alkaline phosphatase [Enzymatic activity/volume] in Serum or Plasma [facility] Anion gap in Serum o r Plasma [facility] End: 10-04-2024 Bacteria identified in Body fluid by Culture [facility] Work Phone: Comment on above: Once (Lab) for 1 Occurrences starting until 10/04/2024 Bilirubin, total measurement [facility] BUN/Creatinine ratio [facility] Calcium [Mass/volume ] in Serum or Plasma [facility] Carbon dioxide, tota l [Moles/volume] in Central venous blood [facility] End: 10-04-2024 Clostridioides difficile toxin A+B tcdA+tcdB genes [Presence] in Stool by ANANTH with probe detection C. difficile, PCR Microbiology STAT STAT (Lab) for 1 Occurrences starting 10/04/2024 until 10/04/2024 [facility] Work Phone: Comment on above: STAT (Lab) for 1 Occurrences starting until 10/04/2024 Creatinine [Mass/vol ume] in Serum or Plasma [facility] Cytology report of B carmelina fluid Cyto stain [facility] Erythrocyte mean corpuscular volume determination [facility] End: 10-04-2024 Extra Urine Garvey Tube Extra Urine Garvey Tube Lab Timed Once for 1 Occurrences starting 10/04/2024 until 10/04/2024 [facility] Work Phone: Comment on above: Once for 1 Occurrences starting 10/05/19 until 10/04/2024 End: 10-04-2024 Glucose [Mass/volume] in Body fluid [facility] Work Phone: Comment on above: Once (Lab) for 1 Occurrences starting until 10/04/2024 Once for 1 Occurrenc es starting 10/04/2024 until 10/04/2024 Glucose [Mass/volume ] in Serum or Plasma [facility] Glucose [Mass/volume ] in Serum or Plasma [facility] Hematocrit [Volume Fraction] of Blood [facility] Hemoglobin [Mass/vol ume] in Blood [facility] End: 10-04-2024 Hemoglobin.gastrointestin al.lower [Presence] in Stool by Immunoassay Fecal Occult Blood Immunoassy Microbiology STAT Once (Lab) for 1 Occurrences starting 10/04/2024 until 10/04/2024 [facility] Work Phone: Comment on above: Once (Lab) for 1 Occurrences starting until 10/04/2024 End: 10-04-2024 Lactate dehydrogenase [Enzymatic activity/volume] in Body fluid by Lactate to pyruvate reaction [facility] Work Phone: Comment on above: Once (Lab) for 1 Occurrences starting until 10/04/2024 Once for 1 Occurrenc es starting 10/04/2024 until 10/04/2024 Lactate dehydrogenas e [Enzymatic activity/volume] in Body fluid by Pyruvate to lactate reaction [facility] Lactic acid measurement [facility] Lactic acid measurement [facility] Leukocytes [#/volume ] in Blood [facility] Mean corpuscular hemoglobin concentration determination [facility] Mean corpuscular hemoglobin determination [facility] Measurement of renal function [facility] Neutrophil count [facility] Neutrophil percent differential count [facility] End: 10-04-2024 Non-gynecological cytology method study Cytology (Non-Gynecologic) Pathology and Cytology Routine Once (Lab) for 1 Occurrences starting 10/04/2024 until 10/04/2024 [facility] Service Area Work Phone: Comment on above: Once (Lab) for 1 Occurrences starting until 10/04/2024 Ova OR parasites identification [facility] Patient Education [facility] Work Phone: Patient referral [facility] Work Phone: End: 10-04-2024 pH of Body fluid [facility] Work Phone: Comment on above: Once (Lab) for 1 Occurrences starting until 10/04/2024 Platelets [#/volume] in Blood [facility] Potassium measurement [facility] End: 10-04-2024 Protein [Mass/volume] in Body fluid [facility] Work Phone: Comment on above: Once (Lab) for 1 Occurrences starting until 10/04/2024 Once for 1 Occurrenc es starting 10/04/2024 until 10/04/2024 Protein [Mass/volume ] in Body fluid [facility] Red blood cell count [facility] Red cell distributio n width determination [facility] Serum chloride measurement [facility] Sodium measurement [facility] End: 10-04-2024 Stool Pathogen Panel, PCR Stool Pathogen Panel, PCR Microbiology STAT Once (Lab) for 1 Occurrences starting 10/04/2024 until 10/04/2024 [facility] Work Phone: Comment on above: Once (Lab) for 1 Occurrences starting until 10/04/2024 Total protein measurement [facility] UA DIP, URINE (POC) UA DIP, URIN E (POC) Lab Routine Screening for genitourinary condition 1 Occurrences starting 12/07/2024 [facility] Work Phone: Comment on above: 1 Occurrences starting 12/07/2024 Urea nitrogen [Mass/volume] in Serum or Plasma [facility] End: 10-04-2024 Urinalysis complete W Reflex Culture panel - Urine [facility] Service Area Work Phone: Comment on above: Once (Lab) for 1 Occurrences starting until 10/04/2024 Once for 1 Occurrenc es starting 10/04/2024 until 10/04/2024 Urine culture [facility] Urine culture [facility] Urine culture [facility] Urine culture [facility] Urine culture [facility] Urine culture [facility] Urine culture [facility] Urine culture [facility] Immunizations Immunization Date Immunization Notes Care Provider Fa [facility] 11-16-2024 COVID-19 vaccine, ag e 12+ yr ([employer] [facility]) Jeremi Abreu RN Work Phone: [facility] 11-15-2024 pneumococcal conjuga te (PCV20) vaccine, 20 valent (PREVNAR 20) Marah MONTENEGROW Work Phone: [facility] 11-14-2024 hepatitis A vaccine, adult dosage Marah Arauz [facility] Work Phone: [facility] 11-14-2024 Hepatitis B vaccine (recombinant), CpG adjuvanted Marah Arauz [employer]ATIONS DIRECTOR Work Phone: [facility] 11-14-2024 tetanus toxoid, redu danica diphtheria toxoid, and acellular pertussis vaccine, adsorbed Marah Arauz [employer]ATIONS DIRECT[employer] Work Phone: [facility] 09-20-2024 influenza, seasonal, injectable Jeremi Abreu RN Work Phone: [facility] Work Phone: 09-15-2024 tuberculin skin test ; purified protein derivative solution, intradermal Jeremi Abreu RN Work Phone: [facility] Payers Date Payer Category Payer Self-pay 2024 Medicaid [id number] 2024 Medicaid [id number] 1965 Unknown [id number] Unknown [id number] Social History Date Type Detail Facility Start: 10-04-2024 End: 02-07-2025 Tobacco smoking status NHIS Ex-smoker [facility] Work Phone: History of tobacco use Current smoker [facility] Work Phone: History of tobacco use Cigarette Smoker U [facility] Work Phone: Start: 10-04-2024 End: 11-11-2024 Tobacco use and exposure Smokeless tobacco non-user [facility] Work Phone: Start: 10-04-2024 Alcoholic beverage intake Ex-drinker (finding) [facility] Work Phone: Start: 10-04-2024 End: 11-15-2024 History of Social function [facility] Start: 10-04-2024 End: 11-15-2024 Tobacco use panel [facility] Start: 1965 Sex assigned at Not on file [facility] Work Phone: Start: 09-24-2024 End: 10-04-2024 Exposure to SARS-CoV-2 (event) Not sure [facility] Work Phone: Start: 10-11-2024 End: 11-21-2024 Sex Male (finding) [facility] Start: 1965 Sex Assigned At Male [facility] Start: 11-11-2024 End: 11-18-2024 Alcoholic beverage intake Lifetime non-drinker (finding) [facility] Has the [employer], or water [employer] threatened to shut off services in your home in past 12Mo No [facility] (I/We) worried whe er (my/our) food would run out before (I/we) got money to buy more. Sometimes true [facility] In the past 12 month s, has lack of transportation kept you from medical appointments or from getting medications? Yes [facility] Medical Equipment Procedure Code Equipment Code Equipment Origin al Text Equipment Identifier Dates Cystoscopic insertion of stent ([id number]) [id number] FDA Start: 09-05-2024 Goals Date Patient Goal Desired Activity /State Functional Status Date Assessment Result Facility 01-31-2025 Functional status Ambulates [facility] Work Phone: 01-21-2025 Functional status Ambulates [facility] Work Phone: 01-05-2025 Functional status With Assist of 1 [facility] Work Phone: 01-05-2025 Functional status Ambulates;Bath room Privilege [facility] Work Phone: 12-02-2024 Functional status Ambulates [facility] Work Phone: 11-25-2024 Functional status Bedrest [facility] Work Phone: 11-18-2024 Are you deaf, or do you have serious difficulty hearing Yes 11/18/2024 10:13 AM EDT Anika Carolina, DAYSI Yes [facility] 11-18-2024 Are you blind, or do you have serious difficulty seeing, even when wearing glasses No 11/18/2024 10:13 AM EDT Anika Carolina, DAYSI No [facility] 11-18-2024 Do you have serious difficulty walking or climbing stairs Yes 11/18/2024 10:13 AM EDT Anika Carolina, DAYSI Yes [facility] 11-18-2024 Do you have difficul ty dressing or bathing Yes 11/18/2024 10:13 AM EDT Anika Carolina, DAYSI Yes [facility] 11-18-2024 Because of a physica l, mental, or emotional condition, do you have difficulty doing errands alone such as visiting a physician's office or shopping Yes 11/18/2024 10:13 AM EDT Anika Carolina, DAYSI Yes [facility] 11-11-2024 Functional status Bedpan [facility] Work Phone: 09-15-2024 Functional status Ambulates [facility] Work Phone: 09-02-2024 Functional status Bathroom Privilege [facility] Work Phone: Mental Status Date Assessment Result Facility 01-31-2025 Cognitive function Cooperative;A nxious;Talk ative [facility] Work Phone: 01-30-2025 Cognitive function Voice/Name [facility] Work Phone: 01-28-2025 Cognitive function Awake;Alert;A ppropriate; Follows Commands [facility] [place] Work Phone: 01-21-2025 Cognitive function Voice/Name [facility] Work Phone: 01-05-2025 Cognitive function Voice/Name [facility] Work Phone: 01-02-2025 Cognitive function Awake;Alert;Appropriat e [facility] Work Phone: 12-30-2024 Cognitive function Awake;Alert;A ppropriate; Follows Commands [facility] Work Phone: 12-02-2024 Cognitive function Voice/Name [facility] Work Phone: 11-25-2024 Cognitive function Voice/Name [facility] Work Phone: 11-18-2024 Because of a physica l, mental, or emotional condition, do you have serious difficulty concentrating, remembering, or making decisions Yes 11/18/2024 10:13 AM EDT Anika Carolina RN Yes [facility] 11-10-2024 Cognitive function Voice/Name [facility] Work Phone: 09-29-2024 Cognitive function Awake;Alert;A ppropriate; Follows Commands [facility] Work Phone: 09-14-2024 Cognitive function Appropriate;Cooperativ e [facility] Work Phone: 09-14-2024 Cognitive function Voice/Name [facility] Work Phone: 09-02-2024 Cognitive function Voice/Name [facility] Work Phone: Clinical Notes 08-30-2024 to 02-08-2025 Note Date & Type Note Facility 02-08-2025 Radiology Diagnostic study note [facility] 01-31-2025 Discharge summary Note Date/Time January 31, 2025 2:41pm [facility] Medical Records Department [address] [place] [address] Discharge Summary 01/31/25 1217 MR#: [id number] Acct: [id number] Name: FRANKLIN ARCHULETA Rep #:[id number] : 1965 59 From: Yaritza Leo DO PCP: Dr. Jerald Sherwood MD Status:ADM I N Location: [place] [address] 1 Providers Date of Admission: 01/28/25 Date of Discharge: 01/31/25 Primary Care Physician: Dr. Jerald Sherwood MD Reason For Visit: HEPATIC ENCEPHALOPATHY Diagnosis Discharge Diagnosis (1) Hepatic encephalopathy: Status: Acute Code(s): K76.82 - Hepatic encephalopathy (2) Umbilical hernia: Status: Acute Code(s): K42.9 - Umbilical hernia without obstruction or gangrene (3) Abnormal urinalysis: Status: Acute Code(s): R82.90 - Unspecified abnormal findings in urine Medications at Discharge Home Medications rifaximin 550 [...] hr 500 mg PO QPM diabetes 11/21/24 sodium bicarbonate 650 mg tablet 650 [...] blood pressure 1 month #90 tabs 11/25/24 cyclobenzaprine 10 mg tablet 10 mg PO QHS muscle relaxer 01/02/25 Held on 01/31/25. Instructions: Until you have completed your antibiotic then okay to restart ferrous sulfate 325 mg (65 mg iron) tablet (FeroSul) 325 mg PO QODAY supplement 01/02/25 insulin lispro 100 unit/mL subcutaneous pen (Humalog KwikPen (U-100) Insulin) 10unit (0.1 mL) subcut TIDAC #0 mL 01/05/25 spironolactone 100 mg tablet 100 mg PO DAILY 1 month #30 tabs 01/21/25 spironolactone 25 mg tablet 25 mg PO DAILY 30 days #30 tabs 01/21/25 omeprazole 20 mg capsule,delayed release 20 mg PO DAILY 01/28/25 oxycodone 5 mg tablet 2.5 mg PO Q8H PRN Pain Score 4-10 Or Pre Pt/Ot 01/28/25 insulin glargine-yfgn 100 unit/mL (3 mL) subcutaneous pen 20 unit (0.2 mL) subcut QHS #15 mL 01/31/25 lactulose 10 gram/15 mL oral solution 10 g (15 mL) PO TID #3,000 mL 01/31/25 linezolid 600 mg tablet 600 mg PO BID #5 tabs 01/31/25 pen needle, diabetic 31 gauge x 5/16 (Pen Needle) #1,200 ea 01/31/25 Hospital Course Operations None Procedures - (Chest x-ray/CT abdomen pelvis) Summary of Care Provided Minutes Spent on Discharge: 39 Hospital Course: Mr. Archuleta is a 59-year-old male who presented from local [place] [facility] facility to which she was discharged on 01/21/2025 with a fever. Patient reported that his fever at the outside facility was 101 ?F. Of note the patientwas afebrile throughout his hospital course. Patient was confused on presentation unable to provide any history other than his fever the emergency department physician or the admitting physician. Patient does have a known history of liver disease and is supposed to be on lactulose and rifaximin. Med reconciliation at time of admission he was not getting his lactulose regularly and ammonia level was checked and found to be markedly elevated greater than 100. Vital signs on presentation showed a temperature of 37.1, heart rate was 98, blood pressure was 117/76, respiratory 16 and pulse ox was 98% room air. CBC showed a chronic stable anemia with hemoglobin of 8.3 and chronic stable thrombocytopenia with a platelet count 150,000. His sodium was slightly low 131and renal function was normal. His ammonia was 108. His urine was suggestive of infection and culture was sent. BNP was within normal limits. Patient has known history of complicated UTI related to staghorn calculus that has not yet been able to be removed due to his complicated nature. He does have history of ESBL E. coli in his urine as well. He was treated at his last hospitalization for this. Due to his encephalopathy and concurrent discern for resistant organism in his urine he was admitted to PCU and placed on his scheduled lactulose as well as given IV antibiotics with meropenem due to his antimicrobial history. He had a lactic acidosis at the time of admission. It did not appear the patient was septic and this was likely due to metformin use and some mild dehydration at time of presentation. His lactate did clear. His urine culture did result on the evening of 01/30/2025 and showed VRE as well as agram-negative lactose from monitor. Both Lana counts were less than significant for urinary tract infection however the VRE was a higher colony count than the GNR LF and with his history of staghorn calculus I discussed the case with infectious disease who recommended we treat for a total of 3 more dayswith linezolid at the time of discharge. His mentation improved significantly and at the time of discharge he was alert and oriented x 3. I did discuss with him the need for ongoing lactulose use and he was unclear whether he had a prescription for this so we wrote a new prescription and told him is taking 10 mL 3 times daily with a goal bowel movement of 2-3 bowel movements daily. He also remain on his rifaximin. We did recommend he go back to SNF however the patient was adamant he did not want to go back. He did fairly well with physical therapy to the point where we did feel comfortable sending him home without any concerns and he was adamant he was going home. We were able to discharge home in stable condition on 01/31/2025. A prescription for linezolid was written and he will continue this. While he is on linezolid we have instructed him to hold his Flexeril. I also wrote prescription for insulin and pen needles as well as lactulose as noted above. Patient is extremely high riskfor readmission as he has a tendency to be noncompliant at home. Blood cultureswere no growth at 48 hours. Patient is to follow-up with his primary care physician within 1 week. He will need referral to general surgery to address his hernias however there is no acuity to them at the time of presentation and outpatient follow-up is again recommended as it was at his last hospitalization. This was discussed with the patient. He voiced understanding. 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 I did urge him to follow-up as an outpatient with his primary care physician to get a referral to general surgery if it continues to be problematic. Const alert, oriented x3, no apparent distress, no limitations and well nourished; Negative for average body habitus or healthy appearing Constitutional Narrative: Obese, middle-aged, white male, sitting up in bed, eating breakfast and watchingtelevision, nursing at bedside, no complaints. General Appearance: cooperative, comfortable, well kempt and well developed Orientation / Consciousness: awake, oriented to person, oriented to place and oriented to time Exam Limitations: no limitations Nutritional Appearance: obese HEENT normocephalic, head/scalp atraumatic and moist oral mucous membranes Eyes EOMs intact bilaterally; Negative for conjunctivae normal Eyes Narrative: Bilateral conjunctiva pallor, no scleral icterus Neck supple Neck Narrative: Trachea midline Resp normal respiratory effort, no retractions, no use of accessory muscles and clearto auscultation bilaterally Resp Narrative: Diminished but clear Cardio regular rate, regular rhythm, S1 normal heart sound, S2 normal heart sound, no murmurs, no rub, no gallops and no clicks GI normal to inspection, nondistended, normoactive bowel sounds, soft to palpation and non-tender GI Narrative: Protuberant abdomen Extremity Extremity Narrative: 2+ bilateral lower extremity edema, no cyanosis or clubbing Skin skin turgor normal and no jaundice Skin Narrative: Scattered ecchymotic changes in various stages of healing Neuro oriented x3, moves all extremities and no focal motor deficits Neuro Narrative: Patient sleeping at the time of my evaluation, per nursing he is oriented x 3 but has intermittent confusion Speech: speech normal Psych affect normal Psych Narrative: Interacts appropriately, eye contact is good Weight / BMI Weight Weight: 110.3 kg Body Mass Index (BMI) 33.0 ABG / Lab / Microbiology Data 01/31/25 05:45 01/31/25 05:45 Laboratory: Laboratory Results - last 24 hr 01/30/25 16:30: POC Glucose 122 H 01/30/25 21:46: POC Glucose 170 H 01/31/25 05:45: WBC 5.9, RBC 2.65 L, Hgb 7.9 L, Hct 23.8 L, MCV 89.8, MCH 29.8, MCHC 33.2, RDW Std Deviation 56.9 H, RDW Coeff of Francis 17.7 H, Plt Count 108 L, MPV 10.6, Sodium 133, Potassium 3.9, Chloride 102, Carbon Dioxide 22.6, Anion Gap 9, BUN 10, Creatinine 0.95, Estim Creat Clear Calc 108.71, Est GFR (MDRD) Non-Af 93, BUN/Creatinine Ratio 10.7, Glucose 143 H, Calcium 8.5 01/31/25 08:00: POC Glucose 149 H 01/31/25 11:57: POC Glucose 179 H Microbiology: Microbiology 01/28/25 06:16 Urine, Clean Catch Urine Culture - Final Vancomycin Resist. E. faecalis GNR lactose certified cytotechnologist 01/28/25 06:15 Blood Culture (Wb) - Anticubital Right Blood Culture - Preliminary No growth in 48 hours. 01/28/25 06:03 Blood Culture (Wb) - Left Hand Blood Culture - Preliminary No growth in 48 hours. 01/28/25 03:10 Mucosa - Nose SARS-CoV-2, Influenza & RSV (PCR) - Final D/C Instructions Discharge Diet: Low fat / Low cholesterol and 1800 Calorie Control Diet Discharge Activity: Return to Normal Activity DC O2, CPAP, BIPAP Needs Home O2 Discharge instructions: No DC home with Oxygen: No Meaningful Use Info Meaningful Use Meaningful [...] Simvastatin 80mg Discharge Plan Admission Admit Date/Time: 01/28/25 07:00 Primary Reason for Your Visit: Altered mental status Attending Provider: Yaritza Leo Primary Care Provider: Jerald Sehrwood Consulting Providers: Boone Izquierdo Instructions Additional Instructions / Restrictions: 1. Goal bowel movements with lactulose is 2-3 bowel movements daily. If you are having more than 3 bowel movements daily please decrease your lactulose from3 times daily to 2 times daily 2. It is very important that you are compliant with your medications and utilize them as directed Discharge Orders/Prescriptions Prescriptions: New lactulose 10 gram/15 mL Solution 10 g PO TID Qty: 3000 0RF Rx Instructions: Goal is 2-3 bowel movements daily if you are having more than this with this amount of lactulose decrease dose to twice daily from 3 times daily linezolid 600 mg Tablet 600 mg PO BID Qty: 5 0RF (DME) pen needle, diabetic [Pen Needle] 31 gauge x 5/16 needle See Rx Instructions .Route Qty: 1200 0RF Rx Instructions: As directed Continued Xifaxan 550 mg Tablet 550 mg PO BID Qty: 60 0RF ferrous sulfate [FeroSul] 325 mg (65 mg iron) tablet 325 mg PO QODAY insulin lispro [Humalog KwikPen Insulin] 100 unit/mL Insulin Pen 10 unit subcut TIDAC Qty: 0 0RF omeprazole 20 mg capsule,delayed release(DR/EC) 20 mg PO DAILY oxycodone 5 mg Tablet 2.5 mg PO Q8H PRN (Reason: Pain Score 4-10 Or Pre Pt/Ot) insulin glargine-yfgn 100 unit/mL (3 mL) Insulin Pen 20 unit subcut QHS Qty: 15 1RF folic acid 1 mg tablet 1 mg [...] 100 mg tablet 100 mg PO DAILY zinc sulfate 50 mg zinc (220 mg) tablet 50 mg PO DAILY midodrine 10 mg tablet 10 mg PO TID 30 Days Qty: 90 0RF Rx Instructions: do not give last dose of day after 6PM or within 4 hrs of bedtime ascorbic acid (vitamin C) 500 mg tablet 500 mg PO BID Qty: 60 2RF spironolactone 25 mg Tablet 25 mg PO DAILY 30 Days Qty: 30 2RF Rx Instructions: total 125 mg daily Hold for serum potassium more than 5.0 spironolactone 100 mg tablet 100 mg PO DAILY 30 Days Qty: 30 2RF Rx Instructions: Hold for serum potassium more than 5.0. Total 125 mg daily. Held cyclobenzaprine 10 mg tablet 10 mg PO QHS Hold Instructions: Until you have completed your antibiotic then okay to restart Discontinued insulin lispro [Humalog KwikPen Insulin] 100 [...] resistant or septic HIGH MEDIUM DOSING ALGORITHM lactulose [Constulose] 10 gram/15 mL solution 15 ml PO TID PRN (Reason: constipation) Patient Comments: HASNT HAD TO TAKE Rx Instructions: Goal to have 2 soft bowel movements per day insulin glargine-yfgn 100 unit/mL (3 mL) Insulin Pen 25 unit subcut DAILY Qty: 15 3RF Referrals / Follow Up: Jerald Sherwood MD [Primary Care Provider] - Within 1 Week Disposition Disposition (needs filled in before D/C Order can be placed): Home, Self Care Charges/Coding Visit Charges Inpatient E&M: 43532 Disch Hosp >30min 01/31/25 1441 <Electronically signed by Yaritza Leo DO> Cosigner Signature (if applicable): CC: Dr. Yaritza Leo DO; Dr. Jerald Sherwood MD~ Signed [facility] Work Phone: 1(821) 368-949506-30-2025 [facility]06-30-2025 Hospital Discharge instructionsAdditional Instructions 1. Goal bowel movements with lactulose is 2-3 bowel movements daily. If you are having more than 3 bowel movements daily please decrease your lactulose from 3 times daily to 2 times daily 2. It is very important that you are compliant with your medications and utilize them as directed Date of Discharge: 01/31/25[facility] Work Phone: 1(763) 765-357606-29-2025 Progress note Author Yaritza Leo [facility] Note Date/Time January 30, 2025 1:37 pm [facility] Medical Records Department [address] [place] [address] Progress Note - Hospitalist 01/30/25727 MR#: [id number] Acct: [id number] Name: FRANKLIN ARCHULETA Rep #:[id number] : 1965 59 From: Yaritza Leo DO PCP: Dr. Jerald Sherwood MD Status:ADM I N Location: [place] [address] Reason for Visit Reason for Visit: Fever Subjective Subjective Patient continues to be afebrile here. Still with some mild confusion however patient had refused some lactulose. He is agreeable at this point per nursing however he is sleeping at the time of my evaluation. No significant issues overnight. Objective Data Objective Data Vital Signs: Vital Signs Temp Pulse Resp BP Pulse Ox O2 Del Method 98.2 F 107 H 16 113/58 L 99 Room Air 01/30/25 03:09 01/30/25 03:09 01/30/25 03:09 01/30/25 03:09 01/30/25 03:09 01/30/25 03:13 Oxygen Delivery Method Room Air Weight: 110.3 kg Body Mass Index (BMI) 33.0 Intake & Output: Intake and Output for Last 24 Hours 01/28/25 01/29/25 01/30/25 23:59 23:59 23:59 Intake Total 1570 / 2030 1220 / 1220 520 / 520 Output Total 250 / 650 750 / 750 Balance 1320 / 1380 470 / 470 520 / 520 Lab / Micro Data 01/30/25 06:00 01/30/25 06:00 Labs: Laboratory Results - last 24 hr 01/29/25 11:49: POC Glucose 196 H 01/29/25 16:04: POC Glucose 163 H 01/29/25 22:52: POC Glucose 174 H 01/30/25 06:00: WBC 5.4, RBC 2.64 L, Hgb 7.7 L, Hct 24.1 L, MCV 91.3, MCH 29.2, MCHC 32.0, RDW Std Deviation 61.1 H, RDW Coeff of Francis 18.1 H, Plt Count 108 L, MPV 10.5, Immature Gran % (Auto) 0.600, Neut % (Auto) 53.2, Lymph % (Auto) 20.0,[place] % (Auto) 18.5 H, Eos % (Auto) 7.0 H, Baso % (Auto) 0.7, Absolute Neuts (auto) 2.9, Absolute Lymphs (auto) 1.08, Nucleated RBC % 0, Sodium 131 L, Potassium 3.5, Chloride 101, Carbon Dioxide 17.3 L, Anion Gap 13, BUN 9, Creatinine 0.93, Estim Creat Clear Calc 111.05, Est GFR (MDRD) Non-Af 95, BUN/Creatinine Ratio 10.1, Glucose 139 H, Calcium 8.4, Phosphorus 2.7, Magnesium1.7 Micro: Microbiology 01/28/25 06:15 Blood Culture (Wb) - Anticubital Right Blood Culture - Preliminary No growth in 48 hours. 01/28/25 06:03 Blood Culture (Wb) - Left Hand Blood Culture - Preliminary No growth in 48 hours. 01/28/25 06:16 Urine, Clean Catch Urine Culture - Preliminary GPC Poss Enterococcus sp GNR lactose certified cytotechnologist 01/28/25 03:10 Mucosa - Nose SARS-CoV-2, Influenza & RSV (PCR) - Final Physical Exam Const Constitutional Narrative: Obese, middle-aged, white male, lying in bed sleeping soundly, appears comfortable, nontoxic, sitter is no longer at the bedside HEENT normocephalic and head/scalp atraumatic Neck supple Neck Narrative: Trachea midline Resp normal respiratory effort, no retractions, no use of accessory muscles and clearto auscultation bilaterally Resp Narrative: Diminished but clear Cardio regular rate, regular rhythm, S1 normal heart sound, S2 normal heart sound, no murmurs, no rub, no gallops and no clicks GI normal to inspection, nondistended, normoactive bowel sounds, soft to palpation and non-tender GI Narrative: Protuberant abdomen Extremity Extremity Narrative: 2+ bilateral lower extremity edema, no cyanosis or clubbing Neuro Neuro Narrative: Patient sleeping at the time of my evaluation, per nursing he is oriented x 3 but has intermittent confusion Psych Psych Narrative: Sleeping Assessment & Plan Assessment/Plan (1) Hepatic encephalopathy: (2) Umbilical hernia: (3) Abnormal urinalysis: PLAN: Plan Hepatic encephalopathy - Patient was recently discharged here with lactulose then [place] however he wasonly taking the lactulose as needed - Continue lactulose 6-continue rifaximin - Mental status continues to clear but still with some confusion - Will try to restart home chronic meds that can be somewhat sedating to see howhe responds may need to discontinue depending on overall mental status - Currently would like to have him have 2-3 bowel movements daily Abnormal UA - Culture does not show colony counts consistent with infection and I do not think the patient's confusion is related to this - VRE at colony counts that 11-25,000 CFU's per mL and a gram-negative michael at the thousand to 10,000 CFU's per mL -Will maintain antibiotics with linezolid only for now and discuss further with ID tomorrow--> I do have concern because he does have that large staghorn calculus - CTA abdomen pelvis confirms well-placed left-sided ureteral stent with lower pole staghorn calculi -Will need outpatient urology follow-up after discharge Lactic acidosis - Resolved Chronic metabolic acidosis - Continue home sodium bicarbonate - Trend Abdominal pain - Secondary to inguinal hernia - Patient was seen by general surgery at his last hospitalization and outpatientfollow-up is recommended Compression fractures T8 10, 11, and 12 - Vitamin D level was obtained at his last hospitalization and found to be 10 - Will start ergocalciferol - PT/OT consultation Vitamin D deficiency - Vitamin D level obtained at his last hospitalization found to be 10 - Continue ergocalciferol 50,000 units weekly x 7 weeks - Recheck vitamin D level at the end of treatment Chronic anemia - Hemoglobin is stable - Will trend - No signs of GI bleeding BOYER liver cirrhosis with history of varices and hepatic encephalopathy - Continue home rifaximin - Continue home lactulose - Hold home Aldactone and nadolol while being treated for hypotension - Had paracentesis at his last hospitalization for removal of about 3 L History of extensive venous thrombosis - Currently not on anticoagulation due to acute blood loss anemia with hematuria - No plans to reinitiate at this point Chronic hypotension - Continue home midodrine - Once blood pressure stabilizes may restart [...] times daily CODE STATUS - Full code Charges/Coding Visit Charges Inpatient E&M: 01960 Subs Hosp L2 01/30/25 1337 <Electronically signed by Yaritza Leo DO> Cosigner Signature (if applicable): CC: ~ Signed [facility] Work Phone: 1(396) 422-619006-28-2025 Progress note Author Yaritza Leo [facility] Note Date/Time January 29, 2025 5:59 pm [facility] Medical Records Department [address] [place] [id number] Progress Note - Hospitalist 01/29/25 0754 MR#: [id number] Acct: [id number] Name: FRANKLIN ARCHULETA Rep #:[id number] : 1965 59 From: Yaritza Leo DO PCP: Dr. Jerald Sherwood MD Status:ADM I N Location: [place] [address] Reason for Visit Reason for Visit: Fever Subjective Subjective Patient reported to have a fever at the nursing facility but has been afebrile here. Urine cultures have growth but none of them are significant growth. Mental status seems to be back to baseline. Patient is really and interested inhaving a meaningful conversation and is just worried about his code at this point in time. I did discuss with him that we would have the nursing staff calland see if his code is at the facility from when she came. Objective Data Objective Data Vital Signs: Vital Signs Temp Pulse Resp BP Pulse Ox O2 Del Method 97.8 F 114 H 18 120/72 100 Room Air 01/29/25 03:00 01/29/25 06:30 01/29/25 03:00 01/29/25 06:30 01/29/25 03:00 01/29/25 03:00 Oxygen Delivery Method Room Air Weight: 110.3 kg Body Mass Index (BMI) 33.0 Intake & Output: Intake and Output for Last 24 Hours 01/27/25 01/28/25 01/29/25 23:59 23:59 23:59 Intake Total 1570 / 2030 980 / 980 Output Total 250 / 650 750 / 750 Balance 1320 / 1380 230 / 230 Lab / Micro Data 01/29/25 05:58 01/29/25 05:58 Labs: Laboratory Results - last 24 hr 01/28/25 07:40: Lactic Acid 2.8 H* 01/28/25 11:25: POC Glucose 96 01/28/25 16:16: POC Glucose 102 01/28/25 20:59: POC Glucose 172 H 01/29/25 05:58: WBC 4.9, RBC 2.74 L, Hgb 8.1 L, Hct 24.8 L, MCV 90.5, MCH 29.6, MCHC 32.7, RDW Std Deviation 60.7 H, RDW Coeff of Francis 18.4 H, Plt Count 120 L, MPV 11.6, Immature Gran % (Auto) 0.800, Neut % (Auto) 60.8, Lymph % (Auto) 17.1 L, [place] % (Auto) 15.2 H, Eos % (Auto) 5.3 H, Baso % (Auto) 0.8, Absolute Neuts (auto) 3.0, Absolute Lymphs (auto) 0.83, Nucleated RBC % 0, Sodium 133, Potassium 3.5, Chloride 100, Carbon Dioxide 19.5 L, Anion Gap 14, BUN 13, Creatinine 1.09, Estim Creat Clear Calc 94.75, Est GFR (MDRD) Non-Af 79, BUN/Creatinine Ratio 11.6, Glucose 265 H, Calcium 8.8, Total Bilirubin 1.81 H, AST 52 H, ALT 30, Alkaline Phosphatase 180 H, Total Protein 5.4 L, Albumin 2.3 L,Globulin 3.1, Albumin/Globulin Ratio 0.8 L 01/29/25 06:44: POC Glucose 237 H Micro: Microbiology 01/28/25 03:10 Mucosa - Nose SARS-CoV-2, Influenza & RSV (PCR) - Final Physical Exam Const alert and oriented x3 Constitutional Narrative: Obese, middle-aged, white male, sitting up in bed, appears older than stated age, sitter at bedside, watching television, appears comfortable, nontoxic HEENT moist oral mucous membranes Head and Scalp: normocephalic Eyes Eyes Narrative: Bilateral conjunctiva pallor, no scleral icterus Neck supple Neck Narrative: Trachea midline Resp normal respiratory effort, no retractions, no use of accessory muscles and clearto auscultation bilaterally Resp Narrative: Diminished but clear Cardio regular rhythm, S1 normal heart sound, S2 normal heart sound, no murmurs, no rub, no gallops and no clicks; Negative for regular rate Cardio Narrative: Mild tachycardia GI normal to inspection, nondistended, normoactive bowel sounds, soft to palpation and non-tender GI Narrative: Protuberant abdomen Extremity Extremity Narrative: 2+ bilateral lower extremity edema, no cyanosis or clubbing Neuro oriented x3, moves all extremities and no focal motor deficits Speech: speech normal Psych Psych Narrative: Mild agitation due to not having his coat Assessment & Plan Assessment/Plan (1) Hepatic encephalopathy: (2) Umbilical hernia: (3) Abnormal urinalysis: PLAN: Plan Hepatic encephalopathy - Patient was recently discharged here with lactulose then [place] however he wasonly taking the lactulose as needed - Will restart home lactulose but make sure it scheduled next-continue home rifaximin -mental status appears to be clearing - Will try to restart home chronic meds that can be somewhat sedating to see howhe responds may need to discontinue depending on overall mental status - Currently would like to have him have 2-3 bowel movements daily Abnormal UA - UA is suggestive of infection however he often has low colony count bacterial growth - Will continue empiric meropenem for now until cultures are finalized - CTA abdomen pelvis confirms well-placed left-sided ureteral stent with lower pole staghorn calculi -Will need outpatient urology follow-up after discharge Lactic acidosis - Do not anticipate this is related to sepsis - Patient is on metformin at baseline and suspect it is related to this given the current clinical picture - Will hold metformin while hospitalized and consider complete discontinuation at discharge ISABEL secondary to ATN with sepsis - Baseline serum creatinine is between 0.8 and 1.1 - Current serum creatinine is 1.77 with decreased urine output - Should resolve with improved perfusion - Repeat lab in a.m. - Avoid nephrotoxins - Hold diuretics Chronic metabolic acidosis - Continue home sodium bicarbonate - Trend Abdominal pain - Secondary to inguinal hernia - Patient was seen by general surgery at his last hospitalization and outpatientfollow-up is recommended Compression fractures T8 10, 11, and 12 - Vitamin D level was obtained at his last hospitalization and found to be 10 - Will start ergocalciferol - PT/OT consultation Vitamin D deficiency - Vitamin D level obtained at his last hospitalization found to be 10 - Start ergocalciferol 50,000 units weekly x 7 weeks - Recheck vitamin D level at the end of treatment Chronic anemia - Hemoglobin is stable - Will trend - No signs of GI bleeding BOYER liver cirrhosis with history of varices and hepatic encephalopathy - Continue home rifaximin - Continue home lactulose - Hold home Aldactone and nadolol while being treated for hypotension - Had paracentesis at his last hospitalization for removal of about 3 L History of extensive venous thrombosis - Currently not on anticoagulation due to acute blood loss anemia with hematuria - No plans to reinitiate at this point Chronic hypotension - Continue home midodrine - Once blood pressure stabilizes may restart [...] times daily CODE STATUS - Full code Charges/Coding Visit Charges Inpatient E&M: 05812 Subs Hosp L2 01/29/25 9702 <Electronically signed by Yaritza Leo DO> Cosigner Signature (if applicable): CC: ~ Signed [facility] [place] Work Phone: [phone] 129-169806-27-2025 History and physical note Author Boone Izquierdo [facility] [place] Note Date/Time January 28, 2025 7:26 am [facility] Medical Records Department [address] [place] [address] H&P Exam - Hospitalist 01/28/25 0710 MR#: [id number] Acct: [id number] Name: FRANKLIN ARCHULETA Rep #:[id number] : 1965 59 From: Boone Izquierdo DO PCP: Dr. Jerald Sherwood MD Status:REG E R Location: ED HPI - General General Date of Service: 01/28/25 Chief Complaint: Fever. HPI Narrative FRANKLIN ARCHULETA, is a 59 M who presents with fever from the [place] [facility]. This ashely 59-year-old male with cirrhosis presents with fever and confusion from the [place] [facility]. In emergency room, he was afebrile but does report that his temperature was 101 Fahrenheit. Patient is confused and on a provide any history so history obtained through the emergency room physician. In the emergency room, his ammonia was noted to be 108. Lactic acid was 3.4. Urinalysis showed white cells of 10-25, greater than 100 RBCs, 1+ bacteria. Concerned the patient may have a urinary tract infections the patient did receive IV meropenem given his history of having ESBL E. coli. The hospitalist service was contacted for admission. Patient has been confused and unable to even tell me his name. And has remained hemodynamically stable in the emergencyroom without fluid resuscitation. [facility] Medical History (Updated 01/28/25 @ 07:[address] Boone Izquierdo DO) Hepatic encephalopathy Umbilical hernia Chronic hyponatremia Weakness Diarrhea Sepsis Acidosis, lactic Acute hypotension Acute UTI Chronic hypotension Obesity (BMI 30-39.9) Chronic back pain ISABEL (acute kidney injury) Hypotension Hyperbilirubinemia Liver 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 (nonalcoholic [...] s 11/21/24 11/27/24 History release 24 hr sodium bicarbonate 650 mg tablet 650 mg PO BID supplem ent 11/21/24 11/28/24 History thiamine HCl (vitamin B1) [...] constipa tion 11/28/24 Unknown History solution (Constulose) cyclobenzaprine 10 mg tablet 10 mg PO QHS muscle relax er 01/02/25 Unknown History ferrous sulfate 325 mg (65 mg 325 mg PO QODAY suppleme nt 01/02/25 Unknown History iron) tablet (FeroSul) insulin glargine-yfgn 100 unit/mL 20 unit (0.2 mL) sub cut QHS #0 mL 01/05/25 Unknown Rx (3 mL) subcutaneous pen insulin lispro 100 unit/mL 10 unit (0.1 mL) subcut TID AC #0 mL 01/05/25 Unknown Rx subcutaneous pen (Humalog KwikPen (U-100) Insulin) insulin lispro 100 unit/mL See Protocol subcut ACHS #0 mL 01/05/25 Unknown Rx subcutaneous pen (Humalog KwikPen (U-100) Insulin) insulin glargine-yfgn 100 unit/mL 25 unit (0.25 mL) johnson bcut DAILY #15 01/21/25 Unknown Rx (3 mL) subcutaneous pen mL spironolactone 100 mg tablet 100 mg PO DAILY 1 month # 30 tabs 01/21/25 Unknown Rx spironolactone 25 mg tablet 25 mg PO DAILY 30 days #30 tabs 01/21/25 Unknown Rx omeprazole 20 mg capsule,delayed 20 mg PO DAILY Unknown History release oxycodone 5 mg tablet 2.5 mg PO Q8H PRN Pain Score 4-10 01/28/25 Unknown History Or Pre Pt/Ot Allergy/AdvReac Type Severity Reaction Status Date / [...] substance use type: does not use ROS Review of Systems ROS Unobtainable: due to encephalopathy Vital Signs Vital Signs Vital Signs: 01/28/25 02:56 01/28/25 04:55 01/28/25 06:00 Temperature 37.1 C Temperature Source Oral Pulse Rate 98 97 100 Respiratory Rate 16 16 Blood Pressure 117/76 126/77 H Blood Pressure Mean 89 93 Pulse Ox 98 Oxygen Delivery Method Room Air 01/28/25 06:16 01/28/25 06:17 Temperature 37.0 C 37.0 C Temperature Source Oral Pulse Rate 103 H 102 H Respiratory Rate 16 14 Blood Pressure 105/67 105/67 Blood Pressure Mean 79 79 Pulse Ox 100 99 Oxygen Delivery Method Room Air Weight Weight: 112.2 kg Body Mass Index (BMI) 31.7 Physical Exam Const Constitutional Narrative: Confused. Afebrile. Sallow appearance. HEENT normocephalic and head/scalp atraumatic Eyes EOMs intact bilaterally Eyes Narrative: Icterus Resp normal respiratory effort, no retractions, no use of accessory muscles and clearto auscultation bilaterally Cardio regular rate, regular rhythm, S1 normal heart sound and S2 normal heart sound GI normal to inspection, nondistended, normoactive bowel sounds and soft to palpation Extremity Extremity Narrative: Bilateral taught lower extremity edema Neuro moves all extremities Sensorium / Orientation: awake; Negative for oriented to person, oriented to place or oriented to time Results Lab / Micro Data 01/28/25 03:10 01/28/25 03:10 Labs: Laboratory Results - last 24 hr 01/28/25 03:10: WBC 5.2, RBC 2.82 L, Hgb 8.3 L, Hct 25.2 L, MCV 89.4, MCH 29.4, MCHC 32.9, RDW Std Deviation 60.7 H, RDW Coeff of Francis 18.4 H, Plt Count 115 L, MPV 11.5, Immature Gran % (Auto) 1.300 H, Neut % (Auto) 57.8, Lymph % (Auto) 18.8 L, [place] % (Auto) 16.7 H, Eos % (Auto) 4.6, Baso % (Auto) 0.8, Absolute Neuts (auto) 3.0, Absolute Lymphs (auto) 0.98, Nucleated RBC % 0, PT 20.0 H, INR1.7, APTT 38.4 H, Sodium 131 L, Potassium 3.4, Chloride 95 L, Carbon Dioxide 22.1, Anion Gap 14, BUN 15, Creatinine 1.16, Estim Creat Clear Calc 92.49, Est GFR (MDRD) Non-Af 73, BUN/Creatinine Ratio 12.8, Glucose 93, Lactic Acid 3.4 H*,Calcium 8.9, Magnesium 1.7 01/28/25 03:10: Magnesium Cancelled, Total Bilirubin 1.91 H, Direct Bilirubin 1.04 H, AST 58 H, ALT 31, Alkaline Phosphatase 201 H, Ammonia Cancelled, Troponin T High Sens 13 D 01/28/25 03:10: Troponin T High Sens Cancelled, NT pro BNP II 140, Total Protein5.9, Albumin 2.5 L, Globulin 3.3, Lipase 33 01/28/25 04:33: Urine Color Lexis, Urine Clarity Cloudy, Urine pH 8.0, Ur Specific [place] 1.015, Urine Protein 100 H, Urine Glucose (UA) Normal, Urine Ketones Negative, Urine Occult Blood 250 H, Urine Nitrite Negative, Urine Bilirubin Negative, Urine Urobilinogen Normal, Ur Leukocyte Esterase 500 H, Urine RBC > 100 SEEN, Urine WBC 10-25 SEEN, Ur Squamous Epith Cells 0 SEEN, Urine Bacteria 1+, Urine Mucus 0 SEEN 01/28/25 04:58: Ammonia 108.0 H Micro: Microbiology 01/28/25 03:10 Mucosa - Nose SARS-CoV-2, Influenza & RSV (PCR) - Final Imaging Radiology Impression Chest X-Ray 01/28/25 03:50 IMPRESSION: Mild bilateral basilar atelectatic pulmonary changes. Reading Location: [facility] Abdomen/Pelvis CT 01/28/25 05:12 IMPRESSION: Cirrhosis, collateral vessels, ascites. Left-sided ureteral stent remains in good position, lower pole staghorn calculusredemonstrated. Small calcifications in the bladder lumen, which are probably attached to the distal end of the stent suggesting chronicity of stent placement. Right-sided colonic wall thickening, this could be secondary to lumen under distention as well as third-spacing, correlate for possible hepatic colopathy. Reading Location: [place] [address] Assessment & Plan Assessment/Plan (1) Hepatic encephalopathy: PLAN: Patient was just discharged here on the and was discharged with lactulose but ordered as as needed for constipation (unclear if patient was actually receiving it). As well as rifaximin. Unclear if he was actually receiving the lactulose so we will schedule it 20 g 4times daily and continue with the rifaximin. Avoid potentiating medications. On his home medication reconciliation form he had cyclobenzaprine added at night and oxycodone. Those medications will be held. (2) Acute UTI: PLAN: Unclear if patient actually does have a urinary tract infection. Was justhere and had unremarkable urine culture with exception of yeast. Empirically, will treat with meropenem for now but if the cultures come back negative then would recommend discontinuing antibiotics. CAT scan confirms left-sided ureteral stent with lower pole staghorn calculi present. (3) Lactic acidosis: PLAN: Hemodynamically stable. I do not feel the patient is actually septic at this time. And certainly with his edematous lower extremities, patient not a candidate for additional IV fluids. Though in the meantime, we will hold off onhis diuretics. Patient does take metformin which may be skewing this lab abnormal. Monitor supportively at this time. PLAN: Plan Diabetes mellitus type 2: Insulin-dependent. Metformin held. Hold scheduled insulin with glargine and lispro for now until able to eat properly. Sliding scale insulin. 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 Patient does take Tylenol and atorvastatin, those will be discontinued. History of VTE: No anticoagulation due to hematuria and it is noted that the patient does have a greater than 100 RBCs in his UA. History of hypertension: Continue midodrine GERD: Continue with PPI Hyperlipidemia: Hold statin given patient's known cirrhosis. VTE prophylaxis with SCDs. CODE STATUS: Unable to directly address the patient given his encephalopathy. Previous CODE STATUS had been full code that will be continued. Charges/Coding Visit Charges Inpatient E&M: 51197 Init Hosp L3 01/28/25 0726 <Electronically signed by Boone Izquierdo DO> Cosigner Signature (if applicable): CC: Dr. Boone Izquierdo DO; Dr. Jerald Sherwood MD~ Signed [facility] [place] Work Phone: [phone] 869-681306-27-2025 History and physical note Author Boone Izquierdo [facility] [place] Note Date/Time January 28, 2025 7:26 am [facility] Medical Records Department [address] [place] [address] H&P Exam - Hospitalist 01/28/25 0710 MR#: [id number] Acct: [id number] Name: FRANKLIN ARCHULETA Rep #:[id number] : 1965 59 From: Boone Izquierdo DO PCP: Dr. Jerald Sherwood MD Status:REG E R Location: ED HPI - General General Date of Service: 01/28/25 Chief Complaint: Fever. HPI Narrative FRANKLIN ARCHULETA, is a 59 M who presents with fever from the [place] [facility]. This ashely 59-year-old male with cirrhosis presents with fever and confusion from the [place] [facility]. In emergency room, he was afebrile but does report that his temperature was 101 Fahrenheit. Patient is confused and on a provide any history so history obtained through the emergency room physician. In the emergency room, his ammonia was noted to be 108. Lactic acid was 3.4. Urinalysis showed white cells of 10-25, greater than 100 RBCs, 1+ bacteria. Concerned the patient may have a urinary tract infections the patient did receive IV meropenem given his history of having ESBL E. coli. The hospitalist service was contacted for admission. Patient has been confused and unable to even tell me his name. And has remained hemodynamically stable in the emergencyroom without fluid resuscitation. [facility] Medical History (Updated 01/28/25 @ 07:[address] Boone Izquierdo, DO) Hepatic encephalopathy Umbilical hernia Chronic hyponatremia Weakness Diarrhea Sepsis Acidosis, lactic Acute hypotension Acute UTI Chronic hypotension Obesity (BMI 30-39.9) Chronic back pain ISABEL (acute kidney injury) Hypotension Hyperbilirubinemia Liver 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 (nonalcoholic [...] s 11/21/24 11/27/24 History release 24 hr sodium bicarbonate 650 mg tablet 650 mg PO BID supplem ent 11/21/24 11/28/24 History thiamine HCl (vitamin B1) 100 mg 100 mg PO DAILY suppl ement 11/21/24 Unknown History tablet zinc sulfate 50 mg zinc (220 mg) 50 mg PO DAILY supple ment 11/21/24 11/28/24 History tablet ascorbic acid (vitamin C) 500 mg 500 mg PO BID vitamin #60 tabs 04/24/25 04/27/25 Rx tablet midodrine 10 mg tablet 10 mg PO TID blood pressure 1 11/25/24 Unknown Rx month #90 tabs lactulose 10 gram/15 mL oral 15 ml PO TID PRN constipa tion 11/28/24 Unknown History solution (Constulose) cyclobenzaprine 10 mg tablet 10 mg PO QHS muscle relax er 01/02/25 Unknown History ferrous sulfate 325 mg (65 mg 325 mg PO QODAY suppleme nt 01/02/25 Unknown History iron) tablet (FeroSul) insulin glargine-yfgn 100 unit/mL 20 unit (0.2 mL) sub cut QHS #0 mL 01/05/25 Unknown Rx (3 mL) subcutaneous pen insulin lispro 100 unit/mL 10 unit (0.1 mL) subcut TID AC #0 mL 01/05/25 Unknown Rx subcutaneous pen (Humalog KwikPen (U-100) Insulin) insulin lispro 100 unit/mL See Protocol subcut ACHS #0 mL 01/05/25 Unknown Rx subcutaneous pen (Humalog KwikPen (U-100) Insulin) insulin glargine-yfgn 100 unit/mL 25 unit (0.25 mL) johnson bcut DAILY #15 01/21/25 Unknown Rx (3 mL) subcutaneous pen mL spironolactone 100 mg tablet 100 mg PO DAILY 1 month # 30 tabs 01/21/25 Unknown Rx spironolactone 25 mg tablet 25 mg PO DAILY 30 days #30 tabs 01/21/25 Unknown Rx omeprazole 20 mg capsule,delayed 20 mg PO DAILY Unknown History release oxycodone 5 mg tablet 2.5 mg PO Q8H PRN Pain Score 4-10 01/28/25 Unknown History Or Pre Pt/Ot Allergy/AdvReac Type Severity Reaction Status Date / [...] substance use type: does not use ROS Review of Systems ROS Unobtainable: due to encephalopathy Vital Signs Vital Signs Vital Signs: 01/28/25 02:56 01/28/25 04:55 01/28/25 06:00 Temperature 37.1 C Temperature Source Oral Pulse Rate 98 97 100 Respiratory Rate 16 16 Blood Pressure 117/76 126/77 H Blood Pressure Mean 89 93 Pulse Ox 98 Oxygen Delivery Method Room Air 01/28/25 06:16 01/28/25 06:17 Temperature 37.0 C 37.0 C Temperature Source Oral Pulse Rate 103 H 102 H Respiratory Rate 16 14 Blood Pressure 105/67 105/67 Blood Pressure Mean 79 79 Pulse Ox 100 99 Oxygen Delivery Method Room Air Weight Weight: 112.2 kg Body Mass Index (BMI) 31.7 Physical Exam Const Constitutional Narrative: Confused. Afebrile. Sallow appearance. HEENT normocephalic and head/scalp atraumatic Eyes EOMs intact bilaterally Eyes Narrative: Icterus Resp normal respiratory effort, no retractions, no use of accessory muscles and clearto auscultation bilaterally Cardio regular rate, regular rhythm, S1 normal heart sound and S2 normal heart sound GI normal to inspection, nondistended, normoactive bowel sounds and soft to palpation Extremity Extremity Narrative: Bilateral taught lower extremity edema Neuro moves all extremities Sensorium / Orientation: awake; Negative for oriented to person, oriented to place or oriented to time Results Lab / Micro Data 01/28/25 03:10 01/28/25 03:10 Labs: Laboratory Results - last 24 hr 01/28/25 03:10: WBC 5.2, RBC 2.82 L, Hgb 8.3 L, Hct 25.2 L, MCV 89.4, MCH 29.4, MCHC 32.9, RDW Std Deviation 60.7 H, RDW Coeff of Francis 18.4 H, Plt Count 115 L, MPV 11.5, Immature Gran % (Auto) 1.300 H, Neut % (Auto) 57.8, Lymph % (Auto) 18.8 L, [place] % (Auto) 16.7 H, Eos % (Auto) 4.6, Baso % (Auto) 0.8, Absolute Neuts (auto) 3.0, Absolute Lymphs (auto) 0.98, Nucleated RBC % 0, PT 20.0 H, INR1.7, APTT 38.4 H, Sodium 131 L, Potassium 3.4, Chloride 95 L, Carbon Dioxide 22.1, Anion Gap 14, BUN 15, Creatinine 1.16, Estim Creat Clear Calc 92.49, Est GFR (MDRD) Non-Af 73, BUN/Creatinine Ratio 12.8, Glucose 93, Lactic Acid 3.4 H*,Calcium 8.9, Magnesium 1.7 01/28/25 03:10: Magnesium Cancelled, Total Bilirubin 1.91 H, Direct Bilirubin 1.04 H, AST 58 H, ALT 31, Alkaline Phosphatase 201 H, Ammonia Cancelled, Troponin T High Sens 13 D 01/28/25 03:10: Troponin T High Sens Cancelled, NT pro BNP II 140, Total Protein5.9, Albumin 2.5 L, Globulin 3.3, Lipase 33 01/28/25 04:33: Urine Color Lexis, Urine Clarity Cloudy, Urine pH 8.0, Ur Specific [place] 1.015, Urine Protein 100 H, Urine Glucose (UA) Normal, Urine Ketones Negative, Urine Occult Blood 250 H, Urine Nitrite Negative, Urine Bilirubin Negative, Urine Urobilinogen Normal, Ur Leukocyte Esterase 500 H, Urine RBC > 100 SEEN, Urine WBC 10-25 SEEN, Ur Squamous Epith Cells 0 SEEN, Urine Bacteria 1+, Urine Mucus 0 SEEN 01/28/25 04:58: Ammonia 108.0 H Micro: Microbiology 01/28/25 03:10 Mucosa - Nose SARS-CoV-2, Influenza & RSV (PCR) - Final Imaging Radiology Impression Chest X-Ray 01/28/25 03:50 IMPRESSION: Mild bilateral basilar atelectatic pulmonary changes. Reading Location: RAD[facility] Abdomen/Pelvis CT 01/28/25 05:12 IMPRESSION: Cirrhosis, collateral vessels, ascites. Left-sided ureteral stent remains in good position, lower pole staghorn calculusredemonstrated. Small calcifications in the bladder lumen, which are probably attached to the distal end of the stent suggesting chronicity of stent placement. Right-sided colonic wall thickening, this could be secondary to lumen under distention as well as third-spacing, correlate for possible hepatic colopathy. Reading Location: [place] [address] Assessment & Plan Assessment/Plan (1) Hepatic encephalopathy: PLAN: Patient was just discharged here on the and was discharged with lactulose but ordered as as needed for constipation (unclear if patient was actually receiving it). As well as rifaximin. Unclear if he was actually receiving the lactulose so we will schedule it 20 g 4times daily and continue with the rifaximin. Avoid potentiating medications. On his home medication reconciliation form he had cyclobenzaprine added at night and oxycodone. Those medications will be held. (2) Acute UTI: PLAN: Unclear if patient actually does have a urinary tract infection. Was justhere and had unremarkable urine culture with exception of yeast. Empirically, will treat with meropenem for now but if the cultures come back negative then would recommend discontinuing antibiotics. CAT scan confirms left-sided ureteral stent with lower pole staghorn calculi present. (3) Lactic acidosis: PLAN: Hemodynamically stable. I do not feel the patient is actually septic at this time. And certainly with his edematous lower extremities, patient not a candidate for additional IV fluids. Though in the meantime, we will hold off onhis diuretics. Patient does take metformin which may be skewing this lab abnormal. Monitor supportively at this time. PLAN: Plan Diabetes mellitus type 2: Insulin-dependent. Metformin held. Hold scheduled insulin with glargine and lispro for now until able to eat properly. Sliding scale insulin. 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 Patient does take Tylenol and atorvastatin, those will be discontinued. History of VTE: No anticoagulation due to hematuria and it is noted that the patient does have a greater than 100 RBCs in his UA. History of hypertension: Continue midodrine GERD: Continue with PPI Hyperlipidemia: Hold statin given patient's known cirrhosis. VTE prophylaxis with SCDs. CODE STATUS: Unable to directly address the patient given his encephalopathy. Previous CODE STATUS had been full code that will be continued. Charges/Coding Visit Charges Inpatient E&M: 31585 Init Hosp 01/28/25 0726 <Electronically signed by Boone Izquierdo DO> Cosigner Signature (if applicable): CC: Dr. Boone Izquierdo DO; Dr. Jerald Sherwood MD~ Signed [facility] [place] Work Phone: [phone]) 716-287706-27-2025 Discharge summary Author Danny Anni [facility] Note Date/Time January 28, 2025 6:59 am [facility] Medical Records Department [address] [place] [address] Emergency Department Summary 01/28/25 MR#: [id number] Acct: [id number] Name: FRANKLIN ARCHULETA Rep #:[id number] : 1965 59 From: Danny christy DO PCP: Dr. Jerald Sherwood MD Status:REG E R Location: ED HPI History of Present Illness Chief Complaint: Confusion Narrative Narrative: Chief complaint and HPI: Fever and confusion. 59-year-old male with past medical history DM2, ABBY, HTN, HLD, liver 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 presents from [place] for fever and confusion. History taken by EMS as patient is a poor historian. Per EMS, patient developed a fever of 101 ?F this evening. They felt that the patient had a change in mental status so brought in for further evaluation. Patient is not known to me however is known to EMS as well as nursing staff here in the ER. They feel that the patient is at his baseline and states that he waxes and wanes in mentation. Patient denies feeling confused. Denies symptomatic fever. Denies any shortness of breath, cough, URIsymptoms, abdominal pain, chest pain, nausea, vomiting, diarrhea, constipation, dysuria. I personally spoke with [facility] staff. The nurse is new to taking care of the patient. She does not know his baseline mental status. She states that she was told by multiple techs that he seemed more confused and that he wasasking about people that had known to pass away. She states that she checked a forehead temperature prior to calling EMS. States it was 101 ?F. States she did not give any antipyretic. Review of systems: See HPI Medications: As listed on the chart Allergies: As listed on the chart PFSH: Per chart Vital signs: As listed on the chart. Reviewed. Physical exam: Gen: A&O x2-was unable to tell me his birthdate or the month but could tell me his name, where he was at, and the year, NAD Head: Normocephalic, atraumatic Eyes: Conjunctiva clear, PERRL, EOMI ENT: Moist mucous membranes Neck: Trachea midline, No JVD, full range of motion without meningismus CV: RRR, no murmurs, + bilateral lower extremity peripheral edema Resp: Lungs CTA BL, no w/r/c GI: Abd soft, non-distended, non-tender, no r/r/g Musc: Moves all extremities, no deformity Skin: Warm, dry, jaundice Neuro: Alert, grossly intact, sensation intact Psych: Cooperative [facility] Medical History Umbilical hernia Chronic hyponatremia Weakness Diarrhea Sepsis [...] s 11/21/24 11/27/24 History release 24 hr sodium bicarbonate 650 mg tablet 650 mg PO BID supplem ent 11/21/24 11/28/24 History thiamine HCl (vitamin B1) [...] constipa tion 11/28/24 Unknown History solution (Constulose) cyclobenzaprine 10 mg tablet 10 mg PO QHS muscle relax er 01/02/25 Unknown History ferrous sulfate 325 mg (65 mg 325 mg PO QODAY suppleme nt 01/02/25 Unknown History iron) tablet (FeroSul) insulin glargine-yfgn 100 unit/mL 20 unit (0.2 mL) sub cut QHS #0 mL 01/05/25 Unknown Rx (3 mL) subcutaneous pen insulin lispro 100 unit/mL 10 unit (0.1 mL) subcut TID AC #0 mL 01/05/25 Unknown Rx subcutaneous pen (Humalog KwikPen (U-100) Insulin) insulin lispro 100 unit/mL See Protocol subcut ACHS #0 mL 01/05/25 Unknown Rx subcutaneous pen (Humalog KwikPen (U-100) Insulin) insulin glargine-yfgn 100 unit/mL 25 unit (0.25 mL) johnson bcut DAILY #15 01/21/25 Unknown Rx (3 mL) subcutaneous pen mL spironolactone 100 mg tablet 100 mg PO DAILY 1 month # 30 tabs 01/21/25 Unknown Rx spironolactone 25 mg tablet 25 mg PO DAILY 30 days #30 tabs 01/21/25 Unknown Rx omeprazole 20 mg capsule,delayed 20 mg PO DAILY Unknown History release oxycodone 5 mg tablet 2.5 mg PO Q8H PRN Pain Score 4-10 01/28/25 Unknown History Or Pre Pt/Ot Allergy/AdvReac Type Severity Reaction Status Date / [...] never substance use type: does not use EXAM Physical Exam Const Vital Signs: 01/28/25 02:56 01/28/25 04:55 01/28/25 06:00 Temperature 98.7 F Temperature Source Oral Pulse Rate 98 97 100 Respiratory Rate 16 16 Blood Pressure 117/76 126/77 H Blood Pressure Mean 89 93 Pulse Ox 98 Oxygen Delivery Method Room Air 01/28/25 06:16 01/28/25 06:17 Temperature 98.6 F 98.6 F Temperature Source Oral Pulse Rate 103 H 102 H Respiratory Rate 16 14 Blood Pressure 105/67 105/67 Blood Pressure Mean 79 79 Pulse Ox 100 99 Oxygen Delivery Method Room Air MDM MDM MDM Narrative Medical decision making narrative: 59-year-old male with past medical history DM2, ABBY, HTN, HLD, liver 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 presents from [facility] for fever and confusion. Patient is a poor historian therefore history taken by EMS as well as [facility] nurse. Reported patient developed a fever of 101 ?F this evening prior to arrival. No meds were given. Nurse as well as myself does not know the patient's baseline mental status although nursing staff here that note is the patient states that wax and wanes. Nurse there states that multiple techs felt that the patient wasconfused at [facility] and that he was asking about people recently . Patient has no complaints. See physical exam findings. Differential diagnosis includes but is not limited to viral illness, pneumonia, UTI, elevated ammonia level, hyperbilirubinemia, dehydration, ISABEL. Laboratory workup ordered including chest x-ray. EKG and chest x-ray reviewed see below. CBC without leukocytosis patient has baseline anemia with hemoglobin of 8.3 and baseline thrombocytopenia of 115. INR unremarkable. CMP shows baseline hyponatremia of 131 without ISABEL. Patient has hyperbilirubinemia with a total bilirubin of 1.91 and a direct bilirubin of 1.04. Patient not endorsing any abdominal pain and not tender on physical exam however given these findings we will obtain CT abdomen pelvis. I do not have ultrasound available. On chart review, he has a history of hyperbilirubinemia which changes in levels. Has baseline AST transaminitis and alkaline phosphatase. Troponin unremarkable. Patient not having any chest pain I do not think delta troponin is needed. BNP unremarkable. Lipase unremarkable. Lactic acid elevated at 3.4. NS bolus ordered. Will be judicial with fluids as patient has bilateral peripheral edema. UA positive for UTI. Urine culture and blood culture ordered. Patient's previous cultures grew out Enterococcus faecalis as well as ESBL Klebsiella pneumonia. Both have different susceptibilities and resistance. Given this I gave ampicillin and meropenem based on previous sensitivities which will cover for both bacteria. Patient has elevated ammonia level at 108. His encephalopathy is multifactorial. CT abdomen pelvis showed cirrhosis, collateralvessels, ascites. Left-sided ureteral stent remains in good position, lower pole staghorn calculus redemonstrated. Small calcifications in the bladder lumen which are probably attached to the distal end of the stent suggesting chronicity of stent placement. Right- sided colonic wall thickening, could be secondary to lumen underdistention as well as third spacing. On chart review, patient has an infected left staghorn calculus. He had left stent placement performed by Dr. Rascon on 09/05. Patient will warrant admission for hepatic encephalopathy, UTI, dehydration. Patient was discussed with the hospitalist service who accepted admission. EKG: Interpreted by me/EM physician: EKG shows normal sinus rhythm with prolonged QTcat 508. No acute ischemic changes. Heart rate 98 Diagnostic: Interpreted by me/EM physician: Chest x-ray without cardiomegaly, large effusion, pneumothorax, pneumonia. Patient has some mild atelectasis. Radiology in agreement. Impression: 1. Encephalopathy, multifactorial including hepatic as well as infectious 2. Hyperammonemia 3. UTI 4. Lactic acidosis 5. Chronic anemia 6. Chronic thrombocytopenia 7. History of 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 8. Chronic hyperbilirubinemia Lab Data Labs: Laboratory Results - last 24 hr 01/28/25 01/28/25 01/28/25 03:10 03:10 03:10 WBC 5.2 RBC 2.82 L Hgb 8.3 L Hct 25.2 L MCV 89.4 MCH 29.4 MCHC 32.9 RDW Std Deviation 60.7 H RDW Coeff of Francis 18.4 H Plt Count 115 L MPV 11.5 Immature Gran % (Auto) 1.300 H Neut % (Auto) 57.8 Lymph % (Auto) 18.8 L [place] % (Auto) 16.7 H Eos % (Auto) 4.6 Baso % (Auto) 0.8 Absolute Neuts (auto) 3.0 Absolute Lymphs (auto) 0.98 Nucleated RBC % 0 PT 20.0 H INR 1.7 APTT 38.4 H Sodium 131 L Potassium 3.4 Chloride 95 L Carbon Dioxide 22.1 Anion Gap 14 BUN 15 Creatinine 1.16 Estim Creat Clear Calc 92.49 Est GFR (MDRD) Non-Af 73 BUN/Creatinine Ratio 12.8 Glucose 93 Lactic Acid 3.4 H* Calcium 8.9 Magnesium 1.7 Cancelled Total Bilirubin 1.91 H Direct Bilirubin 1.04 H AST 58 H ALT 31 Alkaline Phosphatase 201 H Ammonia Cancelled Troponin T High Sens 13 D Cancelled NT pro BNP II 140 Total Protein 5.9 Albumin 2.5 L Globulin 3.3 Lipase 33 Urine Color Urine Clarity Urine pH Ur Specific [place] Urine Protein Urine Glucose (UA) Urine Ketones Urine Occult Blood Urine Nitrite Urine Bilirubin Urine Urobilinogen Ur Leukocyte Esterase Urine RBC Urine WBC Ur Squamous Epith Cells Urine Bacteria Urine Mucus 01/28/25 01/28/25 04:33 04:58 WBC RBC Hgb Hct MCV MCH MCHC RDW Std Deviation RDW Coeff of Francis Plt Count MPV Immature Gran % (Auto) Neut % (Auto) Lymph % (Auto) [place] % (Auto) Eos % (Auto) Baso % (Auto) Absolute Neuts (auto) Absolute Lymphs (auto) Nucleated RBC % PT INR APTT Sodium Potassium Chloride Carbon Dioxide Anion Gap BUN Creatinine Estim Creat Clear Calc Est GFR (MDRD) Non-Af BUN/Creatinine Ratio Glucose Lactic Acid Calcium Magnesium Total Bilirubin Direct Bilirubin AST ALT Alkaline Phosphatase Ammonia 108.0 H Troponin T High Sens NT pro BNP II Total Protein Albumin Globulin Lipase Urine Color Lexis Urine Clarity Cloudy Urine pH 8.0 Ur Specific [place] 1.015 Urine Protein 100 H Urine Glucose (UA) Normal Urine Ketones Negative Urine Occult Blood 250 H Urine Nitrite Negative Urine Bilirubin Negative Urine Urobilinogen Normal Ur Leukocyte Esterase 500 H Urine RBC > 100 SEEN Urine WBC 10-25 SEEN Ur Squamous Epith Cells 0 SEEN Urine Bacteria 1+ Urine Mucus 0 SEEN Radiography Diagnostic Testing: Clinical Impression(s) from Imaging Studies Chest X-Ray 01/28/25 03:50 IMPRESSION: Mild bilateral basilar atelectatic pulmonary changes. Reading Location: [id number] Abdomen/Pelvis CT 01/28/25 05:12 IMPRESSION: Cirrhosis, collateral vessels, ascites. Left-sided ureteral stent remains in good position, lower pole staghorn calculusredemonstrated. Small calcifications in the bladder lumen, which are probably attached to the distal end of the stent suggesting chronicity of stent placement. Right-sided colonic wall thickening, this could be secondary to lumen under distention as well as third-spacing, correlate for possible hepatic colopathy. Reading Location: [facility] Discharge Plan Triage Chief Complaint: Confusion ED Provider: Danny Hutton Dx/Rx/DC Orders Prescriptions: No Action Xifaxan 550 mg Tablet [...] 20 unit subcut QHS Qty: 0 0RF omeprazole 20 mg capsule,delayed release(DR/EC) 20 mg PO DAILY oxycodone 5 mg Tablet 2.5 mg PO Q8H PRN (Reason: Pain Score 4-10 Or Pre Pt/Ot) folic acid 1 mg tablet 1 mg [...] 100 mg tablet 100 mg PO DAILY zinc sulfate 50 mg [...] have 2 soft bowel movements per day spironolactone 25 mg Tablet 25 mg PO DAILY 30 Days Qty: 30 2RF Rx Instructions: total 125 mg daily Hold for serum potassium more than 5.0 spironolactone 100 mg tablet 100 mg PO DAILY 30 Days Qty: 30 2RF Rx Instructions: Hold for serum potassium more than 5.0. Total 125 mg daily. insulin glargine-yfgn 100 unit/mL (3 mL) Insulin Pen 25 unit subcut DAILY Qty: 15 3RF Primary Care Provider: Jerald Sherwood Referrals: Jerald Sherwood MD [Primary Care Provider] - Print Language: Rwandan What to do if you have Problems For any increased pain, shortness of breath, bleeding, nausea or vomiting, chestpain, or any unexpected problems, contact your Primary Care Provider. Call [employer] [facility] ([phone]) or report to the closest Emergency Room. Call 911 if necessary. 01/28/25 0659 <Electronically signed by Danny Hutton DO> Cosigner Signature (if applicable): CC: Dr. Jerald Sherwood MD ~ Signed [facility] Work Phone: 1(565) 832-737106-27-2025 Radiology Diagnostic study [facility]06-27-2025 Radiology Diagnostic study [facility]06-20-2025 Discharge summary Author Anurag Irene [facility] Note Date/Time January 21, 2025 11:1 2am [facility] Medical Records Department [address] [place] [address] Transfer to [facility] MR#: [id number] Acct: [id number] Name: FRANKLIN ARCHULETA Rep #:[id number] : 1965 59 From: Anurag Lucero PCP: YG Pena Status:ADM I N Certification of patient admission REQUIRED AT TIME OF ADMISSION. I CERTIFY THAT POST-HOSPITAL ECF SERVICES ARE REQUIRED TO BE GIVEN ON AN IN-PATIENT BASIS BECAUSE OF THE ABOVE NAMED PATIENT'S NEED FOR RESIDENTIAL CARE ON A CONTINUING BASIS FOR THE CONDITION(S) FOR WHICH HE/SHE WAS RECEIVING IN-PATIENT HOSPITAL SERVICES PRIOR TO HIS/HER TRANSFER TO THE F. 01/21/25 1112<Electronically signed by Anurag Irene MD> [...] (Auto) 63.5, Lymph % (Auto) 16.3 L, [place] % (Auto) 11.9 H, Eos % (Auto) [...] Instructions Additional Instructions / Restrictions: Follow-up in [facility] hepatology/GI. Discharge Orders/Prescriptions Prescriptions: New spironolactone 25 [...] 100 0RF Referrals / Follow Up: Josy Elias, DIRECTOR OF ARCHITECTURE-C [Primary Care Provider] - Within 2 Weeks Disposition Disposition (needs filled in before D/C Order can be placed): Assisted Facility 01/21/25 1112 <Electronically signed by Anurag Irene MD> Cosigner Signature (if applicable): CC: DIRECTOR OF ARCHITECTURE-C Josy Elias; Dr. Aleyda Bautista MD; Dr. Yaritza Leo DO; Dr. Cielo Tovar MD; Dr. Jefferson Malave MD ~ [facility] Work Phone: 1(839) 829-628506-20-2025 Discharge summary Author Anurag Irene [facility] Note Date/Time January 21, 2025 1:29 pm [facility] Medical Records Department [address] [facility] [place] [address] Discharge Summary 01/21/25 1112 MR#: [id number] Acct: [id number] Name: FRANKLIN ARCHULETA Rep #:[id number] : 1965 59 From: Anurag Lucero PCP: YG Pena Status:ADM I N Location: [place] [address] Providers Date of Admission: 01/09/25 Date of Discharge: 01/21/25 Primary Care Physician: YG Pena Consultations 01/09/25 15:46 Consult: Md Ophthalmologist / Pulmonary Medicine Routine Consulting Provider: Intensivists/Pulmonary [...] Consult: severe back pain EMERGENT Consult: No MD Notified: Yes Date Notified: 01/14/25 Time Notified: [...] (Auto) 63.5, Lymph % (Auto) 16.3 L, [place] % (Auto) 11.9 H, Eos % (Auto) [...] solution (Constulose) 15 ml PO TID PRN tvuofzaldtfc27/27/25 L.acidophil,salivari-Bifido bifidum-Strep thermoph 175 mg capsule 1 [...] Instructions Additional Instructions / Restrictions: Follow-up in [facility] hepatology/GI. Discharge Orders/Prescriptions Prescriptions: New spironolactone 25 [...] in before D/C Order can be placed): Assisted Facility Charges/Coding Visit Charges Inpatient E&M: 50671 Disch Hosp >30min 01/21/25 1117 <Electronically signed by Anurag Irene MD> Cosigner Signature (if applicable): CC: YG Elias; Dr. Anruag Irene MD~ Signed ADDENDUM by Dr. Anurag Irene MD on 01/21/25 at 1329 Addendum Prescription for oxycodone total 7 tablets ordered. OARSS reviewed. No unintentional overdose risk score, 0. Norc score 0 point 01/21/25 1329<Electronically signed by Anurag Irene MD> Cosigner Signature (if applicable): cc: YG Elias; Dr. Anurag Irene MD ~* Signed [facility] Work Phone: 1(840) 631-376506-20-2025 [facility]06-19-2025 Progress note Author Anurag Irene [facility] Note Date/Time January 20, 2025 2:40 pm [facility] Medical Records Department [address] [place] [address] [address] Progress Note - Hospitalist 01/20/25 1436 MR#: [id number] Acct: [id number] Name: FRANKLIN ARCHULETA Rep #:[id number] : 1965 59 From: Anurag Lucero PCP: Josy Elias DIRECTOR OF ARCHITECTUREKayleigh Status:ADM I N Location: [place] [address] Reason for Visit Reason for Visit: Diagnoses [...] (Auto) 63.5, Lymph % (Auto) 16.3 L, [place] % (Auto) 11.9 H, Eos % (Auto) [...] (Auto) 63.5, Lymph % (Auto) 16.3 L, [place] % (Auto) 11.9 H, Eos % (Auto) [...] 167 H Charges/Coding Visit Charges Inpatient E&M: 99614 Subs Hosp L2 01/20/25 1440 <Electronically signed by Anurag Irene MD> Cosigner Signature (if applicable): CC: ~ Signed [facility] Work Phone: [phone]) 889-425306-18-2025 Progress note Author Anurag Irene [facility] Note Date/Time January 19, 2025 4:46 pm [facility] Medical Records Department [address] [place] [address] Progress Note - Hospitalist 01/19/25 0919 MR#: [id number] Acct: [id number] Name: FRANKLIN ARCHULETA Rep #:[id number] : 1965 59 From: Anurag Lucero PCP: YG Pena Status:ADM I N Location: [place] [address] Reason for Visit Reason for Visit: Diagnoses [...] WBCs % 75.6, Fluid Neutrophils 20, Fluid Tgeidizguot95, Fluid Monocytes 3, Fluid Macrophages 46, Fluid [...] (Auto) 67.7, Lymph % (Auto) 13.6 L, [place] % (Auto) 11.0 H, Eos % (Auto) [...] gas. Correlate with surgical history. Reading Location: [id number] Paracentesis Ultrasound 01/18/25 13:08 IMPRESSION: Right lower quadrant marker was applied for paracentesis with drain the fluid volume of 2650 cc. Reading [facility] Physical Exam Narrative Seen and examined Discussed [...] WBCs % 75.6, Fluid Neutrophils 20, Fluid Iwdorqfpckg18, Fluid Monocytes 3, Fluid Macrophages 46, Fluid [...] (Auto) 67.7, Lymph % (Auto) 13.6 L, [place] % (Auto) 11.0 H, Eos % (Auto) [...] 198 H Charges/Coding Visit Charges Inpatient E&M: 35832 Subs Hosp L2 01/19/25 1646 <Electronically signed by Anurag Irene MD> Cosigner Signature (if applicable): CC: ~ Signed [facility] Work Phone: 1(695) 669-170906-18-2025 Radiology Diagnostic study [facility]06-17-2025 Radiology Diagnostic study [facility]06-17-2025 Progress note Author Anurag Irene [facility] Note Date/Time January 18, 2025 1:14 pm [facility] Medical Records Department [address] [place] [address] Progress Note - Hospitalist 01/18/25 1302 MR#: [id number] Acct: [id number] Name: FRANKLIN ARCHULETA Rep #:[id number] : 1965 59 From: Anurag Lucero PCP: YG Pena Status:ADM I N Location: [place] [address] Reason for Visit Reason for Visit: Diagnoses [...] (Auto) 68.1, Lymph % (Auto) 14.0 L, [place] % (Auto) 10.0, Eos % (Auto) 6.1 [...] for epidural analgesia today for pain control. NASHcirrhosis Patient admitted for complaint of sepsis due [...] prophylaxis: SCDs Charges/Coding Visit Charges Inpatient E&M: 12906 Subs Hosp L2 01/18/25 1314 <Electronically signed by Anurag Irene MD> Cosigner Signature (if applicable): CC: ~ Signed [facility] Work Phone: 1(147) 211-793706-17-2025 Consult note Author Mohit Santos [facility] Note Date/Time January 18, 2025 12:4 9pm [facility] Medical Records Department [address] [place] [address] Pre-Anesthesia Evaluation 01/18/25 1246 MR#: [id number] Acct: [id number] Name: FRANKLIN ARCHULETA Rep #:[id number] : 1965 59 From: Mohit Santos MD PCP: YG Pena Status:ADM I N Y Race: C Location: [place] [address] 2-1 ASA Classification* ASA Classification ASA Classification: [...] 01/18/25 TSH 0.826 uIU/mL (0.358-3.740) 09/04/24 23:07 0208/28 COAG PT 22.9 SECONDS (11.7-14.9) H 01/18/25 05:21 01/02 02/25 Pre-Assessment Diagnosis/Proposed Procedure Planned Operative Procedure(s): Lumbar steroid injection L1/L2 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 - barrel rifler hook: 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 - barrel rifler hook Hx Hospitalization Any Problems With Anesthesia No [...] am of surgery tylenol PONV PONV - barrel rifler hook: PONV - barrel rifler hook Female HX of Motion Sickness HX of N/V After Surgery Non-Smoker Duration of Surgery greater than 60 minutes Number of Risk Factors PONV Score Height & Weight Height & Weight: Anesthesia: Height & Weight Height 5 ft 9 in 01/17/25 14:51 Weight: 111.3 kg 01/18/25 08:57 Body Mass Index (BMI) 36.2 01/18/25 03:51 Respiratory Assessment Respiratory Assessment - barrel rifler hook: Respiratory Tract Infection Hx - barrel rifler hook Hx Respiratory Tract Infection No 01/18/25 09:01 STOP Sleep Apnea STOP Sleep Apnea - barrel rifler hook: STOP Sleep Apnea - barrel rifler hook Hx Hypertension No 01/10/25 10:46 Hx Sleep [...] Tobacco Use History Tobacco Use History - barrel rifler hook: Tobacco Use History - barrel rifler hook Tobacco Use Smoking Status Former smoker 01/10/25 09:20 Hx Tobacco Use Yes 01/09/25 15:31 Years Smoking Packs Smoked per Day Smoking Cessation Date was Yes - quit smoking within 15 01/09/25 15:31 within the last 15 years years Hx Smoking Cessation Date 05/04/24 01/09/25 15:31 Hx Smoking Cessation Counseling Hematologic Medial History Hematologic Hx - barrel rifler hook: 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 Hx of Blood Transfusion No 01/09/25 15:31 [...] confused, unrespo /Reproduction History /Reproductive History - barrel rifler hook: /Reproductive Hx- barrel rifler hook Hx Now No 01/18/25 09:01 Gestational Age [...] 10 Mg Tablet PO 10 mg QHS KRYSTIN Administration Ferrous Sulfate 325 mg 01/10/25 12:00 01/18/25 11:33 Ferrous Sulfate 325 Mg Tablet PO Not Given Q48@1200 [facility] Folic Acid 1 mg 01/10/25 08:00 01/18/25 11:31 Folic Acid 1 Mg Tablet PO Not Given BREAKFAST KRYSTIN Sodium Chloride 250 mls @ 15 mls/hr 01/09/25 15:34 IV .[id number] PRN Saline Flush Sodium Chloride 250 mls @ 15 mls/hr 01/09/25 15:34 IV .[id number] PRN Additional IVPB Infusion Sodium Chloride 1,000 mls @ 15 mls/hr 01/18/25 12:45 IV .Q48H [facility] Insulin Glargine 20 unit 01/09/25 22:00 01/17/25 21:05 Insulin Glargine-Yfgn 100 Unit/Ml Pen SC 20 unit QHS [facility] Administration Insulin Glargine 20 unit 01/10/25 10:00 01/18/25 11:31 Insulin Glargine-Yfgn 100 Unit/Ml Pen SC Not Given DAILY [facility] Insulin Human Lispro 0 unit 01/09/25 16:00 01/18/25 11:33 Insulin Lispro 100 Unit/Ml Insuln.Pen SC Not Given ACHS [facility] Protocol Lactulose 10 gm 01/09/25 15:46 01/12/25 14:34 Lactulose 20 Gm/30 Ml Udc PO 10 gm TID PRN Administration constipation Magnesium Chloride 128 mg 01/10/25 10:00 01/18/25 11:31 Magnesium Chloride 64 Mg Delay Rel.Tablet PO Not Given DAILY [facility] Midodrine 10 mg 01/09/25 17:00 01/18/25 12:07 Midodrine Hcl 5 Mg Tablet PO 10 mg TIDCM KRYSTIN Administration Morphine Sulfate 1 mg 01/11/25 13:23 01/17/25 19:56 Morphine 2 Mg/Ml Syringe IV 1 mg Q4H PRN PRN Administration Pain Score 6-10 Ondansetron HCl 4 mg 01/09/25 15:46 01/12/25 13:39 Ondansetron 4 Mg/2 Ml Vial IV 4 mg Q8H PRN PRN Administration NAUSEA/VOMITING Pantoprazole Sodium 20 mg 01/10/25 10:00 01/18/25 11:32 Pantoprazole Sodium 20 Mg Tablet PO Not Given DAILY [facility] Potassium Phos/Sodium Phos 1 packet 01/09/25 22:00 01/18/25 11:32 Na Biphos/Potassium Phosphate Packet PO Not Given BID [facility] Rifaximin 550 mg 01/09/25 22:00 01/17/25 21:06 Rifaximin 550 Mg Tablet PO 550 mg BID KRYSTIN Administration Sodium Bicarbonate 650 mg 01/09/25 22:00 01/18/25 11:32 Sodium Bicarbonate 650 Mg Tablet PO Not Given BID [facility] Sodium Chloride 10 - 40 ml 01/09/25 15:34 01/18/25 08:33 0.9% Saline Lock 10 Ml Syringe IV 20 ml UD PRN Administration SALINE FLUSH Thiamine HCl 100 mg 01/10/25 10:00 01/18/25 11:32 Thiamine Hydrochloride 100 Mg Tablet PO Not Given DAILY [facility] Medical History (Updated 01/17/25 @ 16:52 by [...] MD Cosigner Signature: Date CC: ~ Signed [facility] Work Phone: 1(222) 756-972706-16-2025 Consult note Author Buster Carmichael [facility] Note Date/Time January 17, 2025 4:57 pm [facility] Medical Records Department [address] [place] [address] Consultation 01/17/25 1522 MR#: [id number] Acct: [id number] Name: FRANKLIN ARCHULETA Rep #:[id number] : 1965 59 From: Buster brewster MD PCP: YG Pena Status:ADM I N Location: [place] [address] Assessment & Plan Assessment/Plan (1) Spinal stenosis, [...] be 8- 10/10 in severity when moving. [facility] Medical History (Updated 01/17/25 @ 16:52 by [...] (Auto) 67.2, Lymph % (Auto) 12.9 L, [place] % (Auto) 11.5 H, Eos % (Auto) 6.8 H, Baso % (Auto) 0.5, Absolute Neuts (auto) 5.7, Absolute Lymphs (auto) 1.09, Nucleated RBC % 0 01/17/25 06:28: POC Glucose 173 H 01/17/25 11:26: POC Glucose 141 H 01/17/25 1657 <Electronically signed by Buster Carmichael MD> Cosigner Signature (if applicable): CC: YG Elias~ Signed [facility] Work Phone: [phone] 270-362706-16-2025 Progress note Author Anurag Irene [facility] Note Date/Time January 17, 2025 2:32 pm [facility] Medical Records Department [address] [place] [address] Progress Note - Hospitalist 01/17/25 1420 MR#: [id number] Acct: [id number] Name: FRANKLIN ARCHULETA Rep #:[id number] : 1965 59 From: Anurag Lucero PCP: YG Pena Status:ADM I N Location: [place] [address] Reason for Visit Reason for Visit: Diagnoses [...] (Auto) 67.2, Lymph % (Auto) 12.9 L, [place] % (Auto) 11.5 H, Eos % (Auto) [...] prophylaxis: SCDs Charges/Coding Visit Charges Inpatient E&M: 34152 Subs Hosp L2 01/17/25 1432 <Electronically signed by Anurag Irene MD> Cosigner Signature (if applicable): CC: ~ Signed [facility] Work Phone: 1(760) 705-665806-16-2025 [facility]06-15-2025 Progress note Author Cielo Tovar [facility] Note Date/Time January 16, 2025 3:37 pm [facility] Medical Records Department [address] [place] [address] Progress Note 01/16/25 1236 MR#: [id number] Acct: [id number] Name: FRANKLIN ARCHULETA Rep #:[id number] : 1965 59 From: Cielo Tovar MD PCP: YG Pena Status:ADM I N Location: [place] [address] Subjective Subjective Patient seen and examined. He [...] (Auto) 64.9, Lymph % (Auto) 14.6 L, [place] % (Auto) 12.7 H, Eos % (Auto) [...] at home. Charges/Coding Visit Charges Inpatient E&M: 63007 Subs Hosp L2 01/16/25 4477 <Electronically signed by Cielo Tovar MD> Cielo Tovar MD Cosigner Signature (if applicable): CC: ~ Signed [facility] Work Phone: [phone] Consult note Author Buster Hahn [facility] Note Date/Time January 15, 2025 6:46 pm [facility] Medical Records Department [address] [address] Pharmacokinetic/Renal -Consult 01/15/25 1846 MR#: [id number] Acct: [id number] Name: FRANKLIN ARCHULETA Rep #:[id number] : 1965 59 From: Buster farrell [facility] PCP: YG Pena Status:ADM I N Y Location: [place] [address] Consult Antibiotic Management Pharmacy has been consulted [...] Vancomycin (random level 01/16/25 at 0600) 01/15/25 1846 <Electronically signed by Buster Nieves [facility]> Date _ Buster Hahn [facility] Cosigner Signature (if applicable): Date CC: ~ Signed [facility] Work Phone: [phone] 185-728006-14-2025 Progress note Author [facility] Note Date/Time January 15, 2025 6:29 pm [facility] Medical Records Department [address] [place] [address] Progress Note 01/15/25 1321 MR#: [id number] Acct: [id number] Name: FRANKLIN ARCHULETA Rep #:[id number] : 1965 59 From: Cielo Tovar MD PCP: YG Pena Status:ADM I N Location: [place] [address] Subjective Subjective Patient seen and examined. He [...] (Auto) 65.6, Lymph % (Auto) 13.2 L, [place] % (Auto) 13.6 H, Eos % (Auto) [...] at multiple levels, as described. Reading Location: [place] [address] Physical Exam Const alert, oriented x3 and [...] at home. Charges/Coding Visit Charges Inpatient E&M: 93628 Subs Hosp L2 01/15/259 <Electronically signed by Cielo Tovar MD> Cielo Tovar MD Cosigner Signature (if applicable): CC: ~ Signed [facility] Work Phone: [phone] Consult note Author Andreia Carvalho [facility] Note Date/Time January 14, 2025 8:04 pm [facility] Medical Records Department [address] [place] [address] Pharmacokinetic/Renal -Consult 01/14/252002 MR#: [id number] Acct: [id number] Name: FRANKLIN ARCHULETA Rep #:[id number] : 1965 59 From: Andreia Carvalho PCP: YG Pena Status:ADM I N Y Location: [place] [address] Consult Antibiotic Management Pharmacy has been consulted [...] Signature (if applicable): Date CC: ~ Signed [facility] Work Phone: [phone] 312-846506-13-2025 Progress note Author Cielo Tovar [facility] Note Date/Time January 14, 2025 5:19 pm [facility] Medical Records Department [address] [place] [address] Progress Note 01/14/251705 MR#: [id number] Acct: [id number] Name: FRANKLIN ARCHULETA Rep #:[id number] : 1965 59 From: Cielo Tovar MD PCP: YG Pena Status:ADM I N Location: [place] [address] Subjective Subjective Patient seen and examined. He [...] (Auto) 65.3, Lymph % (Auto) 13.5 L, [place] % (Auto) 14.3 H, Eos % (Auto) [...] at multiple levels, as described. Reading Location: [place] [address] Thoracic Spine MRI 01/13/25 10:30 IMPRESSION: Abnormal marrow signal at T12 and L1. No acute compression deformity identified. Can not exclude metastatic involvement of these 2 vertebral bodies. Degenerative changes in the remainder of the lumbar spine. There is mild spinal stenosis at the level of T10-T11 and T11-T12. The patient could not tolerate postcontrast imaging. There is no cord compression Reading Location: [facility] Chest CT 01/14/25 08:06 IMPRESSION: 1. Partially visualized severe degenerative changes of T11-T12 with areas of erosive changes and lytic lesions. Metastasis can not be excluded. 2. Cirrhosis and ascites. 3. Mild lung emphysema. No suspicious nodules or focal consolidation. Reading Location[facility] Physical Exam Const alert, oriented x3 [...] medically stable. Charges/Coding Visit Charges Inpatient E&M: 96168 Subs Hosp L2 01/14/25 8955 <Electronically signed by Cielo Tovar MD> Cielo Tovar MD Cosigner Signature (if applicable): CC: ~ Signed [facility] Work Phone: [phone] Radiology Diagnostic study [facility]06-12-2025 Progress note Author Cielo [facility] Note Date/Time January 13, 2025 6:28 pm [facility] Medical Records Department [address] [place] [address] Progress Note 01/13/25 7487 MR#: [id number] Acct: [id number] Name: FRANKLIN ARCHULETA Rep #:[id number] : 1965 59 From: Cielo Tovar MD PCP: YG Pena Status:ADM I N Location: [place] [address] Subjective Subjective Patient seen and examined. He [...] (Auto) 65.6, Lymph % (Auto) 14.4 L, [place] % (Auto) 13.7 H, Eos % (Auto) [...] medically stable. Charges/Coding Visit Charges Inpatient E&M: 91563 Subs Hosp L2 01/13/25 4712 <Electronically signed by Cielo Tovar MD> Cielo Tovar MD Cosigner Signature (if applicable): CC: ~ Signed [facility] Work Phone: [phone] Consult note Author Francheska Montoya [facility] Note Date/Time January 13, 2025 9:36 am [facility] Medical Records Department [address] [place] [address] Pharmacokinetic/Renal -Consult 01/13/25 0934 MR#: [id number] Acct: [id number] Name: FRANKLIN ARCHULETA Rep #:[id number] : 1965 59 From: Francheska Mcfarlane PCP: Josy Elias NP-Pastora Status:ADM I N Y Location: [place] [address] Consult Antibiotic Management Pharmacy has been consulted [...] Signature (if applicable): Date CC: ~ Signed [facility] Work Phone: [phone] Progress note Author [facility] Note Date/Time January 12, 2025 4:51 pm [facility] Medical Records Department [address] [place] [address] Progress Note 01/12/25 1646 MR#: [id number] Acct: [id number] Name: FARNKLIN ARCHULETA Rep #:[id number] : 1965 59 From: Cielo Tovar MD PCP: YG Pena Status:ADM I N Location: [place] [address] Subjective Subjective Patient seen and examined. He [...] (Auto) 68.2, Lymph % (Auto) 11.6 L, [place] % (Auto) 12.1 H, Eos % (Auto) [...] his facility. Charges/Coding Visit Charges Inpatient E&M: 11753 Subs Hosp L2 01/12/25 1651 <Electronically signed by Cielo Tovar MD> Cielo Tovar MD Cosigner Signature (if applicable): CC: ~ Signed [facility] Work Phone: [phone] Consult note Author Dilcia Vanessa [facility] Note Date/Time January 11, 2025 10:4 8pm [facility] Medical Records Department [address] [place] [address] Pharmacokinetic/Renal -Consult 01/11/251942 MR#: [id number] Acct: [id number] Name: FRANKLIN ARCHULETA Rep #:[id number] : 1965 59 From: Dilcia Vanessa PCP: YG Pena Status:ADM I N Y Location: [place] [address] Consult Antibiotic Management Pharmacy has been consulted to manage selected antibiotic: Vancomycin Type of Intervention Type of Consult: Follow-up Suspected Infection Suspected Infection: Sepsis and Other (UTI) Labs Labs: Sodium 129 mmol/L (133-145) L 06/10/25 05:30 Potassium 3.5 mmol/L (3.3-5.1) 01/11/25 05:30 [...] on [date and time ordered]: 01/13/2025 @0600 01/11/251944 <Electronically signed by Dilcia Vargas ey> Date _ Dilcia Rasheeda 01/11/252247 <Electronically signed by Yaritza Holland> Cosigner Signature (if applicable): Date Yaritza Leo DO CC: ~ Signed [facility] Work Phone: [phone] Progress note Author Cielo [facility] Note Date/Time January 11, 2025 5:51 pm [facility] Medical Records Department [address] [facility] [place] [address] Progress Note 01/11/25 1510 MR#: [id number] Acct: [id number] Name: FRANKLNI ARCHULETA Rep #:[id number] : 1965 59 From: Cielo Tovar MD PCP: YG Pena Status:ADM I N Location: [place] [address] Subjective Subjective Patient seen and examined. He [...] % (Auto) Cancelled, Lymph % (Auto) Cancelled, [place] % (Auto) Cancelled, Eos % (Auto) Cancelled, [...] Drop Cells Cancelled, Ovalocytes Cancelled, Stomatocytes Cancelled, [place] Bodies Cancelled, [place] Cells Cancelled, Bite Cells Cancelled, Crenated Cell [...] (Auto) 69.6, Lymph % (Auto) 12.6 L, [place] % (Auto) 11.8 H, Eos % (Auto) [...] of anemia Charges/Coding Visit Charges Inpatient E&M: 76348 Subs Hosp L2 01/11/25 1751 <Electronically signed by Cielo Tovar MD> Cielo Tovar MD Cosigner Signature (if applicable): CC: ~ Signed [facility] Work Phone: [phone] Consult note Author Jefferson Malave [facility] Note Date/Time January 11, 2025 4:41 pm [facility] Medical Records Department [address] [place] [address] Consultation - Surgical 01/11/25 1634 MR#: [id number] Acct: [id number] Name: FRANKLIN ARCHULETA Rep #:[id number] : 1965 59 From: Jefferson Malave MD PCP: YG Pena Status:ADM I N Location: [place] [address] Assessment & Plan Assessment/Plan (1) Umbilical hernia: [...] findings on CT consistent with portal hypertension. [facility] Medical History (Updated 01/11/25 @ 16:41 by [...] % (Auto) Cancelled, Lymph % (Auto) Cancelled, [place] % (Auto) Cancelled, Eos % (Auto) Cancelled, [...] Drop Cells Cancelled, Ovalocytes Cancelled, Stomatocytes Cancelled, [place] Bodies Cancelled, [place] Cells Cancelled, Bite Cells Cancelled, Crenated Cell [...] (Auto) 69.6, Lymph % (Auto) 12.6 L, [place] % (Auto) 11.8 H, Eos % (Auto) [...] 48 hours. Charges/Coding Visit Charges Inpatient E&M: 93141 Init Hosp L3 01/11/25 1641 <Electronically signed by Jefferson Malave MD> Cosigner Signature (if applicable): CC: YG Elias~ Signed [facility] Work Phone: [phone] Progress note Author Bola Meraz [facility] Note Date/Time January 11, 2025 9:07 am [facility] Medical Records Department [address] [place] [address] Progress Note - Md Ophthalmologist 01/11/25 0722 MR#: [id number] Acct: [id number] Name: FRANKLIN ARCHULETA Rep #:[id number] : [...] scheduled midodrine. This note was generated with [employer] dictation software. It may contain incorrectwords, spelling, [...] 750 Balance 3599.70 / 3599.70 1495 / 8843 90 / 90 Lab / Micro Data [...] % (Auto) Cancelled, Lymph % (Auto) Cancelled, [place] % (Auto) Cancelled, Eos % (Auto) Cancelled, [...] Drop Cells Cancelled, Ovalocytes Cancelled, Stomatocytes Cancelled, [place] Bodies Cancelled, [place] Cells Cancelled, Bite Cells [...] (Auto) 69.6, Lymph % (Auto) 12.6 L, [place] % (Auto) 11.8 H, Eos % (Auto) [...] hypertension. No liver masses identified. Reading Location: [facility] Physical Exam Const alert, oriented x3 and [...] flat affect Charges/Coding Visit Charges Inpatient E&M: 98201 Subs Hosp L2 01/11/25 0907 <Electronically signed by Bola Meraz DO> Cosigner Signature (if applicable): CC: ~ Signed [facility] Work Phone: [phone] Consult note Author Boone Garcia [facility] Note Date/Time January 11, 2025 2:14 am [facility] Medical Records Department [address] [place] [address] Pharmacokinetic/Renal -Consult 01/11/25 0211 MR#: [id number] Acct: [id number] Name: FRANKLIN ARCHULETA CARMELA Rep #:[id number] : 1965 59 From: Boone Garcia PCP: YG Pena Status:ADM I N Y [...] Signature (if applicable): Date CC: ~ Signed [facility] Work Phone: [phone] Progress note Author Cielo Tovar [facility] Note Date/Time January 10, 2025 6:23p m [facility] Medical Records Department [address] [facility] [place] [address] Progress Note 01/10/25 1816 MR#: [id number] Acct: [id number] Name: FRANKLIN ARCHULETA Rep #:[id number] : [...] % (Auto) Cancelled, Lymph % (Auto) Cancelled, [place] % (Auto) Cancelled, Eos % (Auto) Cancelled, [...] Drop Cells Cancelled, Ovalocytes Cancelled, Stomatocytes Cancelled, [place] Bodies Cancelled, [place] Cells Cancelled, Bite Cells Cancelled, Crenated Cell [...] 76.1 H, Lymph % (Auto) 8.8 L, [place] % (Auto) 8.2, Eos % (Auto) 5.9 [...] prophylaxis: Heparin Charges/Coding Visit Charges Inpatient E&M: 73433 Subs Hosp L3 01/10/25 1823 <Electronically signed by Cielo Tovar MD> Cielo Tovar MD Cosigner Signature (if applicable): CC: ~ Signed [facility] Work Phone: [phone] Progress note Author Bola Meraz [facility] Note Date/Time January 10, 2025 8:52a m [facility] Medical Records Department [address] [place] [address] Progress Note - Md Ophthalmologist 01/10/25 0700 MR#: [id number] Acct: [id number] Name: FRANKLIN ARCHULETA Rep #:[id number] : [...] scheduled midodrine. This note was generated with Rainbow[employer] software. It may contain incorrectwords, spelling, and [...] 80.6 H, Lymph % (Auto) 7.2 L, [place] % (Auto) 6.7, Eos % (Auto) 4.2, [...] % (Auto) Cancelled, Lymph % (Auto) Cancelled, [place] % (Auto) Cancelled, Eos % (Auto) Cancelled, [...] Drop Cells Cancelled, Ovalocytes Cancelled, Stomatocytes Cancelled, [place] Bodies Cancelled, [place] Cells Cancelled, Bite Cells Cancelled, Crenated Cell [...] 76.1 H, Lymph % (Auto) 8.8 L, [place] % (Auto) 8.2, Eos % (Auto) 5.9 [...] ABG results: ABG 01/09/25 20:50 Specimen Type RTAMAINE Sample Site Not entered VBG pH 7.36 [...] hypertension. No liver masses identified. Reading Location[facility] Physical Exam Const alert, oriented x3 [...] flat affect Charges/Coding Visit Charges Inpatient E&M: 61421 Subs Hosp L3 01/10/25 0852 <Electronically signed by Bola Meraz DO> Cosigner Signature (if applicable): CC: ~ Signed [facility] Work Phone: [phone] Consult note Author Lupillo Robbins [facility] Note Date/Time January 09, 2025 8:03p m [facility] Medical Records Department [address] [place] [address] Consultation - Md Ophthalmologist 01/09/25 1836 MR#: [id number] Acct: [id number] Name: FRANKLIN ARCHULETA Rep #:[id number] : [...] 12-point ROS negative except as per HPI [facility] Medical History (Updated 01/09/25 @ 17:18 by [...] Cyclobenzaprine Hcl 10 Mg Tablet PO QHS [facility] Ferrous Sulfate 325 mg 01/10/25 12:00 Ferrous Sulfate 325 Mg Tablet PO Q48@1200 [facility] Folic Acid 1 mg 01/10/25 08:00 Folic Acid 1 Mg Tablet PO BREAKFAST [facility] Guaifenesin 10 ml 01/09/25 15:46 Guaifenesin 10 Ml Udc (200mg/10ml) PO Q4H PRN PRN COUGH Heparin Sodium (Porcine) 5,000 unit 01/09/25 22:00 Heparin Injection (Vial) 5,000 Unit/Ml Vial SC Q8 KRYSTIN Sodium Chloride 250 mls @ 15 mls/hr 01/09/25 15:34 IV .[id number] PRN Saline Flush Sodium Chloride 250 mls @ 15 mls/hr 01/09/25 15:34 IV .[id number] PRN Additional IVPB Infusion Norepinephrine Bitartrate 8 mg 250 mls @ 9.375 mls/hr 01/09/25 15:46 01/09/2515:56 / Sodium Chloride CONT INF Not Given .[id number] [facility] Protocol 5 MCG/MIN Vancomycin IV-PHARMACY TO DOSE 500 mls @ 250 mls/hr 01/09/25 15:46 1 each/ Sodium Chloride IV PRN PRN Rx to Dose Protocol Meropenem 1 gm/ Sodium 120 mls @ 33 mls/hr 01/09/25 22:00 Chloride IV Q12 [facility] Vancomycin HCl 1,000 mg in 200 mls @ 200 mls/hr 01/10/25 02:00 Vancomycin IV Q12H [facility] Insulin Glargine 20 unit 01/09/25 22:00 Insulin Glargine-Yfgn 100 Unit/Ml Pen SC QHS [facility] Insulin Glargine 20 unit 01/10/25 10:00 Insulin Glargine-Yfgn 100 Unit/Ml Pen SC DAILY [facility] Insulin Human Lispro 0 unit 01/09/25 16:00 01/09/25 16:27 Insulin Lispro 100 Unit/Ml Insuln.Pen SC Not Given ACHS [facility] Protocol Lactulose 10 gm 01/09/25 15:46 Lactulose 20 Gm/30 Ml Udc PO TID PRN constipation Magnesium Chloride 128 mg 01/10/25 10:00 Magnesium Chloride 64 Mg Delay Rel.Tablet PO DAILY [facility] Midodrine 10 mg 01/09/25 17:00 01/09/25 17:10 Midodrine Hcl 5 Mg Tablet PO 10 mg TIDCM [facility] Administration Ondansetron HCl 4 mg 01/09/25 15:46 Ondansetron 4 Mg/2 Ml Vial IV Q8H PRN PRN NAUSEA/VOMITING Pantoprazole Sodium 20 mg 01/10/25 10:00 Pantoprazole Sodium 20 Mg Tablet PO DAILY [facility] Potassium Phos/Sodium Phos 1 packet 01/09/25 22:00 Na Biphos/Potassium Phosphate Packet PO BID [facility] Rifaximin 550 mg 01/09/25 22:00 Rifaximin 550 Mg Tablet PO BID [facility] Sodium Bicarbonate 650 mg 01/09/25 22:00 Sodium Bicarbonate 650 Mg Tablet PO BID [facility] Sodium Chloride 10 - 40 ml 01/09/25 15:34 0.9% Saline Lock 10 Ml Syringe IV UD PRN SALINE FLUSH Thiamine HCl 100 mg 01/10/25 10:00 Thiamine Hydrochloride 100 Mg Tablet PO DAILY [facility] Vancomycin Protocol 1 lab 01/11/25 00:30 Vancomycin Trough/Random Due MC 01/11/25 02:30 DAILY [facility] Zinc Sulfate 50 mg 01/10/25 10:00 Zinc Sulfate 50 Mg Zinc (220 Mg) Oral Capsule PO DAILY [facility] Lab / Micro Data 01/09/25 10:40 01/09/25 [...] 80.6 H, Lymph % (Auto) 7.2 L, [place] % (Auto) 6.7, Eos % (Auto) 4.2, [...] hypertension. No liver masses identified. Reading Location: [facility] Assessment and Plan . Assessment and plan: [...] Robbins MD> Cosigner Signature (if applicable): CC: MOE-Pastora Elias~ Signed [facility] Work Phone: 1([phone] Consult note Author Peter Carvajal [facility] Note Date/Time January 09, 2025 5:42p m [facility] Medical Records Department [address] [place] [address] Pharmacokinetic/Renal -Consult 01/09/25 1602 MR#: [id number] Acct: [id number] Name: FRANKLIN ARCHULETA Rep #:[id number] : [...] 0130 01/09/25 1603 <Electronically signed by Peter gusman> Date _ Peter Carvajal 01/09/25 5280 <Electronically signed by Yaritza Holland> Cosigner Signature (if applicable): Date Yaritza Leo DO CC: ~ Signed [facility] Work Phone: [phone] History and physical note Author Yaritza Leo [facility] Note Date/Time January 09, 2025 5:41p m [facility] Medical Records Department [address] [place] [address] H&P Exam - Hospitalist 01/09/25 1408 MR#: [id number] Acct: [id number] Name: FRANKLIN ARCHULETA Rep #:[id number] : 1965 59 From: Yaritza Leo DO PCP: YG Pena Status:ADM I N Location: ICU CVICU20 08-04 HPI - General General Date of Admission: 01/09/25 Date of Service: 01/09/25 Chief Complaint: Suprapubic abdominal pain HPI Narrative FRANKLIN ARCHULETA, is a 59 M who presented to the emergency department [facility] on 01/09/2025 due to back pain and [...] medical history and currently resides at an [facility]. He denies any fever or chills. [...] a repeat of 89/59 and pulse ox bis769% on room air. CBC showed a leukocytosis [...] he was treated with 30 cc/kg bolus. [facility] Medical History (Updated 01/09/25 @ 17:18 by [...] 80.6 H, Lymph % (Auto) 7.2 L, [place] % (Auto) 6.7, Eos % (Auto) 4.2, [...] hypertension. No liver masses identified. Reading Location[facility] Assessment & Plan Assessment/Plan (1) Sepsis: [...] currently 102/60) Charges/Coding Visit Charges Inpatient E&M: 29482 Init Hosp L3 01/09/25 1741 <Electronically signed by Yaritza Leo DO> Cosigner Signature (if applicable): CC: YG Elias; Dr. Yaritza Leo DO~ Signed [facility] Work Phone: [phone]) 683-372606-08-2025 Discharge summary Author Breann Mendez [facility] Note Date/Time January 09, 2025 4:26p [facility] Medical Records Department [address] [place] [address] Emergency Department Summary 01/09/25 MR#: [id number] Acct: [id number] Name: FRANKLIN ARCHULETA Rep #:[id number] : [...] denies urinary symptoms. Patient is from a [place] [facility] and normally ambulates with a walker. Patient has history of cirrhosis and history of diabetes as well as high cholesterol. Patient has had prior paracentesis. Currently rates his pain about a 5 out of 10. He does not want thing for pain currently. [facility] Medical History Weakness Diarrhea Sepsis [...] 80.6 H Lymph % (Auto) 7.2 L [place] % (Auto) 6.7 Eos % (Auto) 4.2 [...] Clarity Turbid Urine pH 6.0 Ur Specific [place] 1.015 Urine Protein 500 H Urine Glucose [...] hypertension. No liver masses identified. Reading Location[facility] Critical Care Time Critical care time (excluding procedures): 30-74 minutes, Including time spent:,Discussing w/Patient &/or Family/Face Worker, Discussing w/Consultants, ArrangingAdmission or Transfer, Performing Direct Patient Care at Bedside and - (30 minutes) Discharge Plan Triage Chief Complaint: Abd Pain ED Provider: Brenan Mendez Dx/Rx/DC Orders Clinical Impression: Sepsis, Acute [...] Primary Care Provider: Josy Elias Referrals: Josy Elias, DIRECTOR OF ARCHITECTURE-Pastora [Primary Care Provider] - Print Language: Rwandan Disposition Disposition: Acute Care Hospital [facility] What to do if you have Problems For any increased pain, shortness of breath, bleeding, nausea or vomiting, chestpain, or any unexpected problems, contact your Primary Care Provider. Call [facility] ([phone]) or report to the closest Emergency Room. Call 911 if necessary. 01/09/25 1626 <Electronically signed by Breann Mendez DO> Cosigner Signature (if applicable): CC: DIRECTOR OF ARCHITECTURELukaszC Josy Elias ~ Signed [facility] Work Phone: [phone]) 728-276706-08-2025 Radiology Diagnostic study [facility]06-04-2025 Consult note Author Kourtney Reece [facility] Note Date/Time January 05, 2025 5:01p [facility] Medical Records Department [address] [place] [address] Counseling Note - Pharmacy 01/05/25 1447 MR#: [id number] Acct: [id number] Name: FRANKLIN ARCHULETA Rep #:[id number] : 1965 59 From: Kourtney Reece PCP: YG Pena Status:ADM I N Y Location: [place] [address] Pharmacy PA Med Reconciliation Pharmacy Service has performed discharge [...] solution (Constulose) 15 ml PO TID PRN eppukqaxluqx50/27/25 L.acidophil,salivari-Bifido bifidum-Strep thermoph 175 mg capsule 1 [...] by Kourtney Reece> Date _ Kourtney Reece Cosigner Signature (if applicable): Date CC: ~ Signed [facility] Work Phone: [phone] 776-261206-04-2025 Discharge summary Author Hill Acuña [facility] Note Date/Time January 05, 2025 2:07p [facility] Medical Records Department [address] [place] [address] Discharge Summary 01/05/25 1404 MR#: [id number] Acct: [id number] Name: FRANKLIN ARCHULETA Rep #:[id number] : 1965 59 From: Hill Acuña MD PCP: YG Pena Status:ADM I N Location: [place] [address] Providers Date of Admission: 01/02/25 Date of [...] Secondary to multiple medical comorbidities. Transfer to [place] [facility] had been recommended to patient during previous hospitalization he did decline. I had a discussion with patient he is amenable to entertaining the idea of going to [place] [facility]. Subsequently requested for PT OT eval and manager social media to assist with discharge planning ? 01/03/2025; plan is to discuss with case management regarding disposition ? 01/05/2025; awaiting insurance pre-CERT prior to transfer to [place] [facility] ? Patient was [facility] to [place] [facility] once insurance. 2. Severe hypokalemia ? [...] solution (Constulose) 15 ml PO TID PRN sxvuhgwmjhyr10/27/25 L.acidophil,salivari-Bifido bifidum-Strep thermoph 175 mg capsule 1 [...] (Auto) 69.1, Lymph % (Auto) 13.4 L, [place] % (Auto) 11.6 H, Eos % (Auto) [...] in before D/C Order can be placed): Assisted Facility Charges/Coding Visit Charges Inpatient E&M: 18693 Disch Hosp >30min 01/05/25 1407 <Electronically signed by Hill Acuña MD> Cosigner Signature (if applicable): CC: YG Elias; Dr. Hill Acuña MD~ Signed [facility] Work Phone: [phone]) 197-536506-04-2025 Discharge summary Author [facility] Note Date/Time January 05, 2025 2:04p [facility] Medical Records Department [address] [place] [address] Transfer to [facility] MR#: [id number] Acct: [id number] Name: FRANKLIN ARCHULETA Rep #:[id number] : 1965 59 From: Hill Acuña MD PCP: YG Pena Status:ADM I N Certification of patient admission REQUIRED AT TIME OF ADMISSION. I CERTIFY THAT POST-HOSPITAL ECF SERVICES ARE REQUIRED TO BE GIVEN ON AN IN-PATIENT BASIS BECAUSE OF THE ABOVE NAMED PATIENT'S NEED FOR RESIDENTIAL CARE ON A CONTINUING BASIS FOR THE CONDITION(S) FOR WHICH HE/SHE WAS RECEIVING IN-PATIENT HOSPITAL SERVICES PRIOR TO HIS/HER TRANSFER TO THE [facility]. 01/05/25 1404<Electronically signed by Hill Acuña [...] Secondary to multiple medical comorbidities. Transfer to [place] [facility] had been recommended to patient during previous hospitalization he did decline. I had a discussion with patient he is amenable to entertaining the idea of going to [place] [facility]. Subsequently requested for PT OT eval and manager social media to assist with discharge planning ? 01/03/2025; plan is to discuss with case management regarding disposition ? 01/05/2025; awaiting insurance pre-CERT prior to transfer to [place] [facility] 2. Severe hypokalemia ? Patient potassium [...] in before D/C Order can be placed): Assisted Facility 01/05/25 1404 <Electronically signed by Hill Acuña MD> Cosigner Signature (if applicable): CC: YG Elias; Dr. Buster Fuchs MD ~ [facility] Work Phone: [phone]) 156-500506-04-2025 [facility]06-04-2025 Progress note Author Hill [facility] Note Date/Time January 05, 2025 11:01 am [facility] Medical Records Department [address] [place] [address] Progress Note - Hospitalist 01/05/25 0737 MR#: [id number] Acct: [id number] Name: FRANKLIN ARCHULETA Rep #:[id number] : 1965 59 From: Hill Acuña MD PCP: YG Pena Status:ADM I N Location: [place] [address] Reason for Visit Reason for Visit: Diagnoses Acute kidney failure, unspecified (01/02/25) Unspecified fall, initial encounter (01/02/25) Subjective Subjective Patient seen blood glucose control not optimal further adjustment made to patient insulin regimen. Patient awaiting insurance precertification prior to [facility] to [place] [facility] Objective Data Objective Data Vital [...] (Auto) 69.1, Lymph % (Auto) 13.4 L, [place] % (Auto) 11.6 H, Eos % (Auto) [...] Secondary to multiple medical comorbidities. Transfer to [place] [facility] had been recommended to patient during previous hospitalization he did decline. I had a discussion with patient he is amenable to entertaining the idea of going to [place] [facility]. Subsequently requested for PT OT eval and manager social media to assist with discharge planning ? 01/03/2025; plan is to discuss with case management regarding disposition ? 01/05/2025; awaiting insurance pre-CERT prior to transfer to [place] [facility] 2. Severe hypokalemia ? Patient potassium [...] SCDs for Charges/Coding Visit Charges Inpatient E&M: 12351 Subs Hosp L2 01/05/25 1101 <Electronically signed by Hill Acuña MD> Cosigner Signature (if applicable): CC: ~ Signed [facility] Work Phone: [phone] Progress note Author Hill Acuña [facility] Note Date/Time January 04, 2025 10:18 am [facility] Medical Records Department [address] [place] [address] Progress Note - Hospitalist 01/04/25 1014 MR#: [id number] Acct: [id number] Name: FRANKLIN ARCHULETA Rep #:[id number] : 1965 59 From: Hill Acuña MD PCP: YG Pena Status:ADM I N Location: [place] [address] Reason for Visit Reason for Visit: Diagnoses [...] Secondary to multiple medical comorbidities. Transfer to [place] [facility] had been recommended to patient during previous hospitalization he did decline. I had a discussion with patient he is amenable to entertaining the idea of going to [place] [facility]. Subsequently requested for PT OT eval and manager social media to assist with discharge planning ? 01/03/2025; [...] SCDs for Charges/Coding Visit Charges Inpatient E&M: 25295 Subs Hosp L2 01/04/25 1018 <Electronically signed by Hill Acuña MD> Cosigner Signature (if applicable): CC: ~ Signed [facility] Work Phone: [phone]) 482-584506-02-2025 Progress note Author Hill Glasskarma [facility] Note Date/Time January 03, 2025 9:52a m [facility] Medical Records Department [address] [place] [address] Progress Note - Hospitalist 01/03/25 0839 MR#: [id number] Acct: [id number] Name: FRANKLIN ARCHULETA Rep #:[id number] : 1965 59 From: Hill Acuña MD PCP: YG Pena Status:ADM I N Location: [place] [address] Reason for Visit Reason for Visit: Diagnoses [...] (Auto) 67.5, Lymph % (Auto) 13.9 L, [place] % (Auto) 11.5 H, Eos % (Auto) [...] Secondary to multiple medical comorbidities. [facility] to [place] [facility] had been recommended to patient during previous hospitalization he did decline. I had a discussion with patient he is amenable to entertaining the idea of going to [place] [facility]. Subsequently requested for PT OT eval and manager social media to assist with discharge planning ? 01/03/2025; [...] SCDs for Charges/Coding Visit Charges Inpatient E&M: 05649 Subs Hosp L2 01/03/25 0952 <Electronically signed by Hill Acuña MD> Cosigner Signature (if applicable): CC: ~ Signed [facility] Work Phone: [phone]) 161-696006-01-2025 Progress note Author Hill Acuña [facility] Note Date/Time January 02, 2025 9:58a m [facility] Medical Records Department [address] [place] [address] Progress Note - Hospitalist 01/02/25 0736 MR#: [id number] Acct: [id number] Name: FRANKLIN ARCHULETA Rep #:[id number] : 1965 59 From: Hill Acuña MD PCP: YG Pena Status:ADM I N Location: [place] [address] Reason for Visit Reason for Visit: Diagnoses Acute kidney failure, unspecified (01/02/25) Unspecified fall, initial encounter (01/02/25) Subjective Subjective Patient is a 59-year-old gentleman with recent multiple hospitalization presented to the emergency department with progressive generalized weakness and vomiting. This was apparently his third visit to the ED within a week. Patienthad been encouraged to be discharged to a [place] [facility] he however declined. Objective Data Objective [...] 1200 Lab / Micro Data 01/02/25 03:30 06/01/25 03:30 Labs: Laboratory Results - last 24 hr 01/02/25 03:30: WBC 12.7 H, RBC 3.21 L, Hgb 9.5 L, Hct 28.0 L, MCV 87.2, MCH 29.6, MCHC 33.9, RDW Std Deviation 51.1 H, RDW Coeff of Francis 16.4 H, Plt Count 171, MPV 12.1 H, Immature Gran % (Auto) 0.600, Neut % (Auto) 68.0, Lymph % (Auto) 12.2 L, [place] % (Auto) 11.9 H, Eos % (Auto) [...] insufficiency fracture again noted, unchanged. Reading Location: [facility] Brain CT 01/02/25 03:55 IMPRESSION: No intracranial hemorrhage, mass effect or calvarial fracture. Moderate volume loss, atrophy again noted. Mild left maxillary sinus disease appears mildly decreased from the prior study. Reading Location: [facility] Cervical Spine CT 01/02/25 03:55 IMPRESSION: No fracture or malalignment. Multilevel spondylosis/discogenic change greatest at C5-6 Reading Location: [facility] Physical Exam Narrative GENERAL: cooperative HEENT: [...] Secondary to multiple medical comorbidities. Transfer to [place] [facility] had been recommended to patient during previous hospitalization he did decline. I had a discussion with patient he is amenable to entertaining the idea of going to [place] [facility]. Subsequently requested for PT OT eval and manager social media to assist with discharge planning 2. Severe [...] documentation, 38Minutes Charges/Coding Visit Charges Inpatient E&M: 03416 PROLNG IP/OBS E/M EA 15 MIN Multi Select Codes Visit Charges Visit Charges: 34680 PROLNG IP/OBS E/M EA 15 MIN 01/02/25 0958 <Electronically signed by Hill Acuña MD> Cosigner Signature (if applicable): CC: ~ Signed [facility] Work Phone: [phone]) 577-180806-01-2025 History and physical note Author Buster Fuchs [facility] Note Date/Time January 02, 2025 6:44a m [facility] Medical Records Department [address] [place] [address] H&P Exam - Hospitalist 01/02/25 0556 MR#: [id number] Acct: [id number] Name: FRANKLIN ARCHULETA Rep #:[id number] : 1965 59 From: Buster duarte MD PCP: BRITTANY PenaC Status:ADM I N Location: [place] [address] HPI - General General Date of Admission: 01/02/25 HPI Narrative FRANKLIN ARCHULETA, is a 59 M who presents to the hospital with weakness and a fall. He did not hit his head or lose consciousness. He has had an extensive recent medical history with cirrhosis and UTI with staghorn calculus, he was in the ICUin October. 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 Was not considered to be a liver transplant candidate and was placed on anticoagulation. He has had a couple of readmissions for weakness and debility. [place] to possibly have aUTI given a staghorn [...] Heis receiving potassium infusion in the ER. [facility] Medical History Weakness Diarrhea Sepsis [...] (Auto) 68.0, Lymph % (Auto) 12.2 L, [place] % (Auto) 11.9 H, Eos % (Auto) [...] insufficiency fracture again noted, unchanged. Reading Location: [facility] Brain CT 01/02/25 03:55 IMPRESSION: No intracranial hemorrhage, mass effect or calvarial fracture. Moderate volume loss, atrophy again noted. Mild left maxillary sinus disease appears mildly decreased from the prior study. Reading Location: [facility] Cervical Spine CT 01/02/25 03:55 IMPRESSION: No fracture or malalignment. Multilevel spondylosis/discogenic change greatest at C5-6 Reading Location: [facility] Assessment & Plan Assessment/Plan (1) Fall: [...] once verified Charges/Coding Visit Charges Inpatient E&M: 21189 Init Hosp L2 01/02/25 0644 <Electronically signed by Buster Fuchs MD> Cosigner Signature (if applicable): CC: DIRECTOR OF ARCHITECTURELukaszC oJsy Elias; Dr. Buster Fuchs MD~ Signed [facility] Work Phone: [phone]) [phone] Discharge summary Author Roddy Reeves [facility] Note Date/Time January 02, 2025 6:00a [facility] Medical Records Department [address] [place] [address] Emergency Department Summary 01/02/25 MR#: [id number] Acct: [id number] Name: FRANKLIN ARCHULETA Rep #:[id number] : 1965 59 From: Roddy Reeves DO PCP: YG Pean Status:REG E R Location: ED HPI History [...] was here recently and was sent home. [facility] Medical History Weakness Diarrhea Sepsis [...] Patient following commands that he was at [facility] that wewere in the end of [...] (Auto) 68.0 Lymph % (Auto) 12.2 L [place] % (Auto) 11.9 H Eos % (Auto) [...] Clarity Turbid Urine pH 6.0 Ur Specific [place] 1.015 Urine Protein 100 H Urine Glucose [...] insufficiency fracture again noted, unchanged. Reading Location: [facility] Brain CT 01/02/25 03:55 IMPRESSION: No intracranial hemorrhage, mass effect or calvarial fracture. Moderate volume loss, atrophy again noted. Mild left maxillary sinus disease appears mildly decreased from the prior study. Reading Location: [facility] Cervical Spine CT 01/02/25 03:55 IMPRESSION: No fracture or malalignment. Multilevel spondylosis/discogenic change greatest at C5-6 Reading Location: [facility] Discharge Plan Triage Chief Complaint: Weakness [...] NP-C [Primary Care Provider] - Print Language: Rwandan Disposition Disposition: Acute Care Hospital [facility] What to do if you have Problems For any increased pain, shortness of breath, bleeding, nausea or vomiting, chestpain, or any unexpected problems, contact your Primary Care Provider. Call [facility] ([phone]) or report to the closest Emergency Room. Call 911 if necessary. 01/02/25 0600 <Electronically signed by Roddy Reeves DO> Cosigner Signature (if applicable): CC: YG Elias ~ Signed [facility] Work Phone: [phone]) 700-852606-01-2025 Radiology Diagnostic study [facility]06-01-2025 Radiology Diagnostic study [facility]06-01-2025 Radiology Diagnostic study [facility] 12-30-2024 Radiology Diagnostic study [facility]05-25-2025 Radiology Diagnostic study [facility]05-14-2025 Radiology Diagnostic study [facility]04-20-2025 Radiology Diagnostic study [facility]04-17-2025 Telephone encounter Note* Telephone Encounter [...] be scheduled to follow up with F Ip Attorney. JEANNINE asked that Dr. Mosley inform this pt that he can return to our transplant center again and be re-evaluated once he has addressed his prohibitive psychosocial concerns (lack of caregivers, unstable housing, unstable finances, unreliable transportation). Dr. Mosley agreed to do so. [facility] Work Phone: 1([phone]) 780-478604-17-2025 Miscellaneous Notes* Telephone Encounter - Marah Arauz [...] will be scheduled to follow up with [facility] Ip Attorney. JEANNINE asked that Dr. Mosley inform this pt that he can return to our transplant center again and be re-evaluated once he has addressed his prohibitive psychosocial concerns (lack of caregivers, unstable housing, unstable finances, unreliable transportation). Dr. Mosley agreed to do so. documented in this encounterAdena [facility]04-17-2025 Telephone encounter Note * Telephone Encounter - [...] transportation. . Jeremi Abreu RN, BSN Liver Contact [employer] [facility] Work Phone: [phone]) 362-995804-17-2025 Miscellaneous Notes* Telephone Encounter - Jeremi Abreu [...] transportation. . Jeremi Abreu RN, BSN Liver Contact [employer] documented in this encounterAdena Regional [facility] Center04-17-2025 [facility]-16-2025 Note[facility]16-2025 Note[facility]-16-2025 Note [facility]04-15-2025 [facility]-15-2025 Note[facility]-15-2025 Note[facility] 11-15-2024 [facility]-14-2025 Note[facility]-14-2025 Note[facility]-14-2025 History of Present illness Narrative* Marah Arauz [...] 15, 2024 2:35 PM documented in this encounterAdena [facility] Center04-14-2025 NoteSelect [facility]04-14-2025 History of Present illness Narrative* Virgil Farley DDS - 11/15/2024 1:48 PM EDTSummary: Liver Transplant Dental Bedside Clearance See inpatient note for this encounter on 11/15/2024. Virgil Farley DDS documented in this encounterAdena Regional Medical Center04-14-2025 Note[facility]04-13-2025 Note[facility]04-12-2025 Note[facility]-11-2025 History of Present illness Narrative* Lizett Guzman [...] mg capsule(s) rifAXIMin 550 mg tab(s) (XIFAXAN) txjkmeg-xilkyvywg-binkhey D3 500 mg-5 mcg (200 unit) 1 [...] mg by mouth once daily. Lizett Guzman, PharmJ[facility] Clinical Specialist Pager: [phone] documented in this encounterAdena Regional Medical Center04-11-2025 NoteSelect [facility]04-11-2025 NoteSelect [facility]04-11-2025 History of Present illness Narrative* Jeremi Abreu RN - 11/12/2024 2:52 PM EDT The following information has been provided/discussed with the patient/family during Shared MedicalAppointment education class: Informed Consent for Organ Transplant Program Participation version February 20, 2023. SRTR information provided and questions answered. Informed patient to call charge master coordinator with any questions. [facility] information regarding multiple listings for organ transplantation Evaluation process including presentation to selection committee and listing criteria Surgical procedure, including post-operative management, hospitalization, immunosuppressive medications and their side effects (including the risk for hypertension, diabetes, kidney problems and cancers) and skilled nursing follow up after transplant. Possibility of recurrent [...] was also addressed Patient was provided with [facility] information sheet regarding transplantation of HepatitisC viremic [...] LIMITATIONS AFFECTING LEARNING: None LEARNING RESPONSE [facility]AGNOSIS: [facility] METHOD OF INSTRUCTION: Verbal instruction Video PATIENT / FAMILY RESPONSE: Information received as demonstrated by interest and questions FOLLOW-UP PLAN: Contact information given. SUPPLEMENTAL MATERIAL: None REFERRAL (RECOMMENDATION): None Electronically Signed By: Jeremi Abreu RN In Department: TRANSPLANT CENTER documented in this encounterAdena [facility] Center04-11-2025 NoteSelect [facility]04-11-2025 History of Present illness Narrative* Marah Arauz [...] 12, 2024 1:16 PM documented in this encounterAdena Regional Medical Center04-11-2025 Miscellaneous Notes* Telephone Encounter - Jeremi Abreu RN - 11/12/2024 12:08 PM EDT INFORMED CONSENT [facility] Archuleta Medical Record: [id number] Informed consent for Organ Transplant Program Participation [...] questions answered. Jeremi Abreu RN, BSN Liver Contact [employer] documented in this encounterAdena Regional Medical Center04-11-2025 Telephone encounter Note * Telephone Encounter - Jeremi Abreu RN - 11/12/2024 12:08 PM EDT INFORMED CONSENT [place] Archuleta Medical Record: [id number] Informed consent for Organ Transplant Program Participation [...] questions answered. Jeremi Abreu RN, BSN Liver Contact Lens Blocker And C[facility] Work Phone: [phone]) [phone] [facility]-2025 NoteHNO ID: [id number] Author: KIRTI VELÁSQUEZ RN Service: Nursing Author Type: Registered Nurse Type: Nursing Progress Note Filed: 11/12/2024 00:58 Note Text: Other: PTTAC-no clot detected at 320-heparin gtt stopped-need futher orders-contract driver notifiedSelect [facility] [place]04-10-2025 [facility] 11-11-2024 NoteSelect [facility]04-10-2025 NoteSelect [facility] [place]04-09-2025 Discharge summary Author Kathie Lemos [facility] Note Date/Time November 10, 2024 8:42 pm [facility] Medical Records Department [address] [place] [address] Discharge Summary 11/10/241936 MR#: [id number] Acct: [id number] Name: FRANKLIN ARCHULETA Rep #:[id number] : 1965 59 From: Kathie Lemos MD PCP: Care Physician,No Primary Status :ADM IN Location: [place] [address] Providers Date of Admission: 10/29/24 Date of Discharge: 11/10/24 Primary Care Physician: No Primary Care Phys Consultations 10/29/24 01:15 Consult: Urology Routine Consulting Provider: Foster Rascon Reason for Consult: Sepsis with UTI and Staghorn Calculus. EMERGENT Consult: No MD Notified: Yes Date Notified: 10/29/24 Time Notified: 08:07 Method of Notification: Verbal 10/29/24 01:47 Consult: Md Ophthalmologist / Pulmonary Medicine Routine Consulting Provider: Intensivists/Pulmonary Med Reason for Consult: Sepsis, UTI, Diarrhea, Abdominal Pain and Back Pain. EMERGENT Consult: No MD Notified: Yes Date Notified: 10/29/24 Time Notified: 04:58 Method of Notification: Text 10/30/24 03:54 Consult: Gastroenterology Routine Consulting Provider: [facility] Reason for Consult: BOYER, elevated ammonia EMERGENT Consult: No MD Notified: Yes Date Notified: 10/30/24 Time Notified: 07:31 Method of Notification: Text 11/09/24 21:26 Consult: Gastroenterology Routine Consulting Provider: [facility] Reason for Consult: cirrhosis,ascites,splenic thrombosis, low plts, possible dec in heidy motili EMERGENT Consult: No MD Notified: Yes Date Notified: 11/10/24 Time Notified: 05:35 Method of Notification: Text Consult: Oncology/Hematology Routine Consulting Provider: *[facility] Reason for Consult: splenic [...] diabetes, staghorn colliculi, cirrhosis who presented to [facility] ED 10/29/2024 with sepsis and was found [...] heme-onc was in agreement. Reach out to [facility] and ultimately patient was accepted by the pinking 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 Dr. Neal. Patient with bed assignment 11/10, patient to be transferred to [facility] Physical Exam Narrative General: Sleeping but will [...] 83.0 H, Lymph % (Auto) 6.6 L, [place] % (Auto) 6.9, Eos % (Auto) 1.9, [...] Clarity Turbid, Urine pH 6.5, Ur Specific [place] 1.015, Urine Protein 500 H, Urine Glucose [...] with sequela of portal hypertension. Reading [facility] Inst[facility] DC O2, CPAP, BIPAP Needs [...] Zachariah Glover; Scott Weston; Yue Delgadillo DIRECTOR OF ARCHITECTURE Discharge Orders/Prescriptions Prescriptions: No Action lidocaine 5 [...] or pain) [facility] 1 Week Care Physician,No Primary [Primary Care Provider] - Disposition Disposition (needs filled in before D/C Order can be placed): Acute Care Hospital Charges/Coding Visit Charges Inpatient E&M: 05834 Disch Hosp >30min 11/10/242041 <Electronically signed by Kathie Lemos MD> Cosigner Signature (if applicable): CC: Dr. Kathie Lemos MD; No Primary Care Physician~ Signed [facility] Work Phone: [phone] Discharge summary Author Kathie Lemos [facility] Note Date/Time November 10, 2024 7:37 pm [facility] Medical Records Department [address] [place] [address] Instructions for Home/Discharge Instructions 11/10/241935 MR#: [id number] Acct: [id number] Name: FRANKLIN ARCHULETA Rep #:[id number] : [...] Garza; Zachariah Glover; Scott Weston; Yue Delgadillo NP Discharge Orders/Prescriptions Prescriptions: No Action lidocaine 5 [...] fever or pain) [facility] - [facility] Week Care Physician,No Primary [Primary Care Provider] - Disposition Disposition (needs filled in before D/C Order can be placed): [facility] 11/10/241936<Electronically signed by Kathie Lemos MD>Kathie Lemos MD CC: DIRECTOR OF ARCHITECTURE-C Yue Delgadillo; Dr. Hill Herrmann MD; Dr. Hill Acuña MD; Dr. Hill Caro DO; Dr. Thiago Wray MD; Dr. Blair Cage MD; Dr. Foster Gresham MD; Dr. Gabbi Hughes MD; Dr. Buster Fuchs MD; Dr. Thai Godfrey MD; Dr. Zachariah Glover MD; Dr. Juan Daniel Garza MD; Dr. Scott Weston, DO; No Primary Care Physician ~ Signed [facility] Work Phone: [phone] Consult note Author Foster Rascon [facility] Note Date/Time November 10, 2024 8:59 am [facility] Medical Records Department [address] [place] [address] Consultation 11/10/24 0857 MR#: [id number] Acct: [id number] Name: FRANKLIN ARCHULETA Rep #:[id number] : 1965 59 From: Foster Rascon MD PCP: Care Physician,No Primary Status :ADM IN Location: [facility] [id number] Consult Date of Consult: 11/10/24 59-year-old [...] or percutaneous procedure. At a later date 11/10/2459 <Electronically signed by Foster Rascon MD> Cosigner Signature (if applicable): CC: No Primary Care Physician~ Signed [facility] Work Phone: [phone] Progress note Author [facility] Note Date/Time November 09, 2024 9:26 pm [facility] Medical Records Department [address] [place] [address] Progress Note - Hospitalist 11/09/242120 MR#: [id number] Acct: [id number] Name: FRANKLIN ARCHULETA Rep #:[id number] : 1965 59 From: Kathie Lemos MD PCP: Care Physician,No Primary Status :ADM IN Location: [place] [address] scan w/ ascites and [...] Cosigner Signature (if applicable): CC: ~ Signed [facility] Work Phone: [phone] Progress note Author [facility] Note Date/Time November 09, 2024 6:54 pm [facility] Medical Records Department [address] [place] [address] Progress Note - Hospitalist 11/09/24 1850 MR#: [id number] Acct: [id number] Name: FRANKLIN ARCHULETA Rep #:[id number] : 1965 59 From: Kathie Lemos MD PCP: Care Physician,No Primary Status :ADM IN Location: [place] [address] Reason for Visit Reason for Visit: Diagnoses [...] 79.1 H, Lymph % (Auto) 8.2 L, [place] % (Auto) 8.1, Eos % (Auto) 3.0, [...] with interval NG tube removal. Reading Location: [facility] Rhythm Strip Rhythm Strip: Sinus Rhythm [...] 42 Minutes Charges/Coding Visit Charges Inpatient E&M: 39871 Subs Hosp L2 11/09/24 8914 <Electronically signed by Kathie Lemos MD> Cosigner Signature (if applicable): CC: ~ Signed [facility] Work Phone: [phone] Radiology Diagnostic study [facility]04-08-2025 Radiology Diagnostic study [facility]04-07-2025 Progress note Author Kathie Lemos [facility] Note Date/Time November 08, 2024 6:26 pm [facility] Medical Records Department [address] [place] [address] Progress Note - Hospitalist 11/08/24 1441 MR#: [id number] Acct: [id number] Name: FRANKLIN ARCHULETA Rep #:[id number] : 1965 59 From: Kathie Lemos MD PCP: Care Physician,No Primary Status :ADM IN Location: [place] [address] Reason for Visit Reason for Visit: Diagnoses [...] 56 Minutes Charges/Coding Visit Charges Inpatient E&M: 53557 Subs Hosp L3 11/08/24 1503 <Electronically signed [...] Cosigner Signature (if applicable): cc: ~* Signed [facility] Work Phone: [phone] Progress note Author Hill Acuña [facility] Note Date/Time November 07, 2024 10:3 8am [facility] Medical Records Department [address] [place] [address] Progress Note - Hospitalist 11/07/24912 MR#: [id number] Acct: [id number] Name: FRANKLIN ARCHULETA Rep #:[id number] : 1965 59 From: Hill Acuña MD PCP: Care Physician,No Primary Status :ADM IN Location: [place] [address] Reason for Visit Reason for Visit: Diagnoses [...] 81.5 H, Lymph % (Auto) 6.9 L, [place] % (Auto) 6.9, Eos % (Auto) 2.3, Baso % (Auto) 0.3, Absolute Neuts (auto) 16.4 H, Absolute Lymphs (auto) 1.39, Nucleated RBC % 0, Platelet Estimate MOD DEC 11/06/24 12:06: POC Glucose 276 H 11/06/24 [...] ? Requested for PT OT eval and manager social media to assist with discharge planning ? 11/05/2024; [...] 36 Minutes Charges/Coding Visit Charges Inpatient E&M: 29383 Subs Hosp L2 11/07/24 1038 <Electronically signed by Hill Acuña MD> Cosigner Signature (if applicable): CC: ~ Signed [facility] Work Phone: [phone] Progress note Author Hill Acuña [facility] Note Date/Time November 06, 2024 10:5 7am [facility] Medical Records Department [address] [place] [address] Progress Note - Hospitalist 11/06/24 0756 MR#: [id number] Acct: [id number] Name: FRANKLIN ARCHULETA Rep #:[id number] : 1965 59 From: Hill Acuña MD PCP: Care Physician,No Primary Status :ADM IN Location: [place] [address] Reason for Visit Reason for Visit: Diagnoses [...] ? Requested for PT OT eval and manager social media to assist with discharge planning ? 11/05/2024; plan is for patient to be discharged home when medically stable. Patient does not qualify for home health as he currently does not have a primarycare physician he has been given a referral to [facility] 1 Time spent in the patient's overall evaluation,decision-making process, review of diagnostic data, adjustment of management, discussion with other providers, nursing nursing and ancillary staff involved in patient's care documentation, 36 Minutes Charges/Coding Visit Charges Inpatient E&M: 59725 Subs Hosp L2 11/06/24 1057 <Electronically signed by Hill Acuña MD> Cosigner Signature (if applicable): CC: ~ Signed [facility] Work Phone: [phone] Progress note Author Hill Acuña [facility] Note Date/Time November 05, 2024 9:26 am [facility] Medical Records Department [address] [place] [address] Progress Note - Hospitalist 11/05/24 0924 MR#: [id number] Acct: [id number] Name: FRANKLIN ARCHULETA Rep #:[id number] : 1965 59 From: Hill Acuña MD PCP: Care Physician,No Primary Status :ADM IN Location: [place] [address]- 1 Reason for Visit Reason for Visit: Diagnoses [...] 81.0 H, Lymph % (Auto) 6.7 L, [place] % (Auto) 7.1, Eos % (Auto) 2.3, [...] ? Requested for PT OT eval and manager social media to assist with discharge planning ? 11/05/2024; plan is for patient to be discharged home when medically stable. Patient does not qualify for home health as he currently does not have a primarycare physician he has been given a referral to [facility] 1 Time spent in the patient's overall evaluation,decision-making process, review of diagnostic data, adjustment of management, discussion with other providers, nursing nursing and ancillary staff involved in patient's care documentation, 38 Minutes Charges/Coding Visit Charges Inpatient E&M: 29598 Subs Hosp L2 11/05/24 0926 <Electronically signed by Hill Acuña MD> Cosigner Signature (if applicable): CC: ~ Signed [facility] Work Phone: [phone] Progress note Author Hill Acuña [facility] Note Date/Time November 04, 2024 11:5 0am [facility] Medical Records Department [address] [place] [address] Progress Note - Hospitalist 11/04/24 1105 MR#: [id number] Acct: [id number] Name: FRANKLIN ARCHULETA Rep #:[id number] : 1965 59 From: Hill Acuña MD PCP: Care Physician,No Primary Status :ADM IN Location: [place] [address]- 1 Reason for Visit Reason for Visit: Diagnoses [...] 83.6 H, Lymph % (Auto) 4.9 L, [place] % (Auto) 5.9, Eos % (Auto) 1.1, [...] ? Requested for PT OT eval and manager social media to assist with discharge planning Time spent in the patient's overall evaluation,decision-making process, review of diagnostic data, adjustment of management, discussion with other providers, nursing nursing and ancillary staff involved in patient's care documentation, 38 Minutes Charges/Coding Visit Charges Inpatient E&M: 76055 Subs Hosp L2 11/04/24 1150 <Electronically signed by Hill Acuña MD> Cosigner Signature (if applicable): CC: ~ Signed [facility] Work Phone: [phone] Progress note Author [facility] Note Date/Time November 04, 2024 6:43 am [facility] Medical Records Department [address] [place] [address] Progress Note - Hospitalist 11/04/24 0642 MR#: [id number] Acct: [id number] Name: FRANKLIN ARCHULETA Rep #:[id number] : 1965 59 From: Maria Guadalupe Shore MD PCP: Care Physician,No Primary Status :ADM IN Location: [place] [address] Hospitalist Note Patient with 15 beat asymptomatic VT. Electrolytes recently checked, mag normal range, K normal range. 11/04/24 0643 <Electronically signed by Maria Guadalupe Shore MD> Cosigner Signature (if applicable): CC: ~ Signed [facility] Work Phone: [phone] Progress note Author [facility] Note Date/Time November 03, 2024 10:3 8pm [facility] Medical Records Department [address] [facility] [place] [address] Progress Note - Hospitalist 11/03/247 MR#: [id number] Acct: [id number] Name: FRANKLIN ARCHULETA Rep #:[id number] : 1965 59 From: Maria Guadalupe Shore MD PCP: Care Physician,No Primary Status :ADM IN Location: [place] [address] Hospitalist Note Patient with mildly tachycardia through the late afternoon and evening. Will administer 500 cc bolus and reassess. From review of medications not normally onBB therapy. 11/03/242237 <Electronically signed by Maria Guadalupe Shore MD> Cosigner Signature (if applicable): CC: ~ Signed [facility] Work Phone: [phone] Progress note Author [facility] Note Date/Time November 03, 2024 10:2 7am [facility] Medical Records Department [address] [facility] [place] [address] Progress Note - Hospitalist 11/03/24 1025 MR#: [id number] Acct: [id number] Name: GEREMIASFRANKLIN Rep #:[id number] : 1965 59 From: Hill Acuña MD PCP: Care Physician,No Primary Status :ADM IN Location: [place] [address] Reason for Visit Reason for Visit: Diagnoses [...] ? Requested for PT OT eval and manager social media to assist with discharge planning Time spent in the patient's overall evaluation,decision-making process, review of diagnostic data, adjustment of management, discussion with other providers, nursing nursing and ancillary staff involved in patient's care documentation, 38 Minutes Charges/Coding Visit Charges Inpatient E&M: 53025 Subs Hosp L2 11/03/24 1027 <Electronically signed by Hill Acuña MD> Cosigner Signature (if applicable): CC: ~ Signed [facility] Work Phone: [phone] Progress note Author Hill Acuña [facility] Note Date/Time November 02, 2024 10:0 5am [facility] Medical Records Department [address] [place] [address] Progress Note - Hospitalist 11/02/24 0804 MR#: [id number] Acct: [id number] Name: FRANKLIN ARCHULETA Rep #:[id number] : 1965 59 From: Hill Acuña MD PCP: Care Physician,No Primary Status :ADM IN Location: [place] [address] Reason for Visit Reason for Visit: Diagnoses [...] 50 Minutes Charges/Coding Visit Charges Inpatient E&M: 08433 Subs Hosp L3 11/02/24 1005 <Electronically signed by Hill Acuña MD> Cosigner Signature (if applicable): CC: ~ Signed [facility] Work Phone: [phone] Progress note Author Hill Glass[facility] Note Date/Time November 01, 2024 11: 41am [facility] Medical Records Department [address] [place] [address] Progress Note - Hospitalist 11/01/24 1128 MR#: [id number] Acct: [id number] Name: FRANKLIN ARCHULETA Rep #:[id number] : 1965 59 From: Hill Acuña MD PCP: Care Physician,No Primary Status :ADM IN Location: [place] [address] Reason for Visit Reason for Visit: Diagnoses [...] 50 Minutes Charges/Coding Visit Charges Inpatient E&M: 04306 Subs Hosp L3 11/01/24 1141 <Electronically signed by Hill Acuña MD> Cosigner Signature (if applicable): CC: ~ Signed [facility] Work Phone: [phone] Progress note Author Niranjan Friend [facility] Note Date/Time November 01, 2024 8:4 4am [facility] Medical Records Department [address] [place] [address] Progress Note 11/01/24 0836 MR#: [id number] Acct: [id number] Name: FRANKLIN ARCHULETA Rep #:[id number] : 1965 59 From: Niranjan Friend PCP: Care Physician,No Primary Status :ADM IN Location: [place] [address] Progress Note Patient has a little bit [...] from the hospital if it is possible. Megan need this approximately 7 days after he [...] doses of vancomycin. Visit Charges Inpatient E&M: 97053 Subs Hosp L3 11/01/24 0844 <Electronically signed by Niranjan Li DO> Niranjan Li DO Cosigner Signature (if applicable): CC: ~ Signed [facility] Work Phone: [phone] Consult note Author Ale Renee [facility] Note Date/Time November 01, 2024 6:1 1am [facility] Medical Records Department [address] [facility] [place] [address] Pharmacokinetic/Renal -Consult 11/01/24 0604 MR#: [id number] Acct: [id number] Name: FRANKLIN ARCHULETA Rep #:[id number] : 1965 59 From: Ale Renee PCP: Care Physician,No Primary Status :ADM IN Location: [place] [address] Consult Antibiotic Management Pharmacy has been consulted [...] signed by Ale Renee> Date _ Ale Rneee 11/01/24 0611 <Electronically signed by Hill Stiles DO> Cosigner Signature (if applicable): Date Hill Caro DO CC: ~ Signed [facility] Work Phone: [phone] Progress note Author Buster Fuchs [facility] Note Date/Time October 31, 2024 9:5 5am [facility] Medical Records Department [address] [place] [address] Progress Note - Hospitalist 10/31/24 0952 MR#: [id number] Acct: [id number] Name: FRANKLIN ARCHULETA Rep #:[id number] : [...] (Auto) 80.3 H, Lymph %(Auto) 5.9 L, [place] % (Auto) 7.9, Eos % (Auto) 1.5, [...] they did add IV Flagyl ? Appreciate dual rate supervisor assistance 2. Acute metabolic cephalopathy with nonalcoholic [...] DVT: SCDs Charges/Coding Visit Charges Inpatient E&M: 22916 Subs Hosp L2 10/31/24 3275 <Electronically signed by Buster Fuchs MD> Cosigner Signature (if applicable): CC: ~ Signed [facility] Work Phone: [phone] Consult note Author Foster Rascon [facility] Note Date/Time October 31, 2024 7:3 1am [facility] Medical Records Department [address] [place] [address] Consultation 10/31/24 0730 MR#: [id number] Acct: [id number] Name: FRANKLIN ARCHULETA Rep #:[id number] : [...] applicable): CC: No Primary Care Physician~ Signed [facility] Work Phone: [phone] Consult note Author Niranjan Li [facility] Note Date/Time October 30, 2024 9:3 4pm [facility] Medical Records Department [address] [place] [address] Consultation - GI 10/30/24 2048 MR#: [id number] Acct: [id number] Name: FRANKLIN ARCHULETA Rep #:[id number] : [...] of yellow-colored fluid removed. He presented backto [facility] ER complaining of abdominal pain, back pain [...] He is also on Zosyn for urosepsis. [facility] Medical History Chronic hypotension Obesity [...] 85.6 H, Lymph % (Auto) 4.3 L, [place] % (Auto) 7.3, Eos % (Auto) 0.5, [...] NG tube in satisfactory position. Reading [facility] Assessment & Plan Assessment/Plan (1) Sepsis: [...] this admission. Charges/Coding Visit Charges Inpatient E&M: 22056 Init Hosp L3 10/30/242133 <Electronically signed by Niranjan Li DO> Cosigner Signature (if applicable): CC: No Primary Care Physician~ Signed [facility] Work Phone: [phone] Consult note Author Kourtney Reece [facility] Note Date/Time October 30, 2024 4:1 2pm [facility] Medical Records Department [address] [place] [address] Pharmacokinetic/Renal -Consult 10/30/24 1552 MR#: [id number] Acct: [id number] Name: FRANKLIN ARCHULETA Rep #:[id number] : [...] Date Buster Fuchs MD CC: ~ Signed [facility] Work Phone: [phone] Progress note Author Jeff Cornelius [facility] Note Date/Time October 30, 2024 10: 45am [facility] Medical Records Department [address] [place] [address] Progress Note - Md Ophthalmologist 10/30/24 1037 MR#: [id number] Acct: [id number] Name: FRANKLIN ARCHULETA Rep #:[id number] : [...] Lidocaine 5% Patch TOPICAL Not Given DAILY [facility] Protocol Midodrine 10 mg 10/29/24 02:00 10/30/24 [...] 85.5 H, Lymph % (Auto) 4.6 L, [place] % (Auto) 7.4, Eos % (Auto) 1.2, [...] 85.6 H, Lymph % (Auto) 4.3 L, [place] % (Auto) 7.3, Eos % (Auto) 0.5, [...] NG tube in satisfactory position. Reading Location[facility] Assessment and Plan . Assessment and [...] Cosigner Signature (if applicable): CC: ~ Signed [facility] Work Phone: 1([phone]) 263-382003-29-2025 Consult note Author Foster Rascon [facility] Note Date/Time October 30, 2024 9:5 8am [facility] Medical Records Department [address] [place] [address] Consultation - Urology 10/30/24 0956 MR#: [id number] Acct: [id number] Name: FRANKLIN ARCHULETA Rep #:[id number] : [...] not available on the weekend here at [facility]. We discussed transferring to other hospital for nephrostomy tube placement. We could also have a nephrostomy tube placed on Friday if radiology services are available. For now we will continue with broad-spectrum antibiotics await culture results but if things progress I think he is going to need nephrostomy tube we will continue to follow. [facility] Medical History Chronic hypotension Obesity [...] 85.5 H, Lymph % (Auto) 4.6 L, [place] % (Auto) 7.4, Eos % (Auto) 1.2, [...] 85.6 H, Lymph % (Auto) 4.3 L, [place] % (Auto) 7.3, Eos % (Auto) 0.5, [...] NG tube in satisfactory position. Reading Location: [facility] 10/30/24 0958 <Electronically signed by Foster Rascon MD> Cosigner Signature (if applicable): CC: No Primary Care Physician~ Signed [facility] Work Phone: [phone]) [phone] Progress note Author Buster Fuchs [facility] Note Date/Time October 30, 2024 8:2 9am [facility] Medical Records Department [address] [place] [address] Progress Note - Hospitalist 10/30/24 0820 MR#: [id number] Acct: [id number] Name: FRANKLIN ARCHULETA Rep #:[id number] : [...] 85.5 H, Lymph % (Auto) 4.6 L, [place] % (Auto) 7.4, Eos % (Auto) 1.2, [...] 85.6 H, Lymph % (Auto) 4.3 L, [place] % (Auto) 7.3, Eos % (Auto) 0.5, [...] 3. Left-sided ureteral stent noted. Reading Location: [facility] Rhythm Strip Rhythm Strip: Sinus Rhythm [...] antibiotics ? Cultures are pending ? Appreciate dual rate supervisor assistance 2. Acute metabolic cephalopathy with nonalcoholic [...] DVT: SCDs Charges/Coding Visit Charges Inpatient E&M: 71109 Subs Hosp L2 10/30/24 0829 <Electronically signed by Buster Fuchs MD> Cosigner Signature (if applicable): CC: ~ Signed [facility] Work Phone: [phone]) 713-546503-29-2025 Radiology Diagnostic study [facility]03-28-2025 Consult note Author Foster Rascon [facility] Note Date/Time October 29, 2024 10: 32am [facility] Medical Records Department [address] [place] [address] Consultation - Urology 10/29/24 0808 MR#: [id number] Acct: [id number] Name: FRANKLIN ARCHULETA Rep #:[id number] : [...] emergency intervention is necessary from my standpoint [facility] Medical History Chronic hypotension Obesity [...] 83.0 H, Lymph % (Auto) 5.6 L, [place] % (Auto) 8.4, Eos % (Auto) 1.4, [...] vertebral body compression fracture deformities. Reading Location: [facility] 10/29/24 1032 <Electronically signed by Foster Rascon MD> Cosigner Signature (if applicable): CC: No Primary Care Physician~ Signed [facility] Work Phone: [phone] Consult note Author Bola Meraz [facility] Note Date/Time October 29, 2024 10: 24am [facility] Medical Records Department [address] [place] [address] Consultation - Md Ophthalmologist 10/29/24 0744 MR#: [id number] Acct: [id number] Name: FRANKLIN ARCHULETA Rep #:[id number] : [...] coverage initiated. This note was generated with [employer] dictation software. It may contain incorrectwords, spelling, [...] stable, without the need for vasopressor support. [facility] Medical History Chronic hypotension Obesity [...] 83.0 H, Lymph % (Auto) 5.6 L, [place] % (Auto) 8.4, Eos % (Auto) 1.4, [...] vertebral body compression fracture deformities. Reading Location: [id number] Charges/Coding Visit Charges Inpatient E&M: 19601 Init Hosp L3 10/29/24 1024 <Electronically signed by Bola Meraz DO> Cosigner Signature (if applicable): CC: No Primary Care Physician~ Signed [facility] Work Phone: [phone] Radiology Diagnostic study [facility]03-28-2025 History and physical note Author Hill Wright [facility] Note Date/Time October 29, 2024 6:4 7am [facility] Medical Records Department [address] [place] [address] H&P Exam - Hospitalist 10/29/24 0033 MR#: [id number] Acct: [id number] Name: FRANKLIN ARCHULETA Rep #:[id number] : [...] toSeptember 02, 2024 with patient diagnosed with lnsdw-yo-prfulwn hypotension in thesetting of acute hepatic encephalopathy [...] fluid removed who once again presents to [facility] ER complaining of abdominal pain, back pain [...] thatis expected to extend beyond 2 midnights. [facility] Medical History Chronic hypotension Obesity [...] 83.0 H, Lymph % (Auto) 5.6 L, [place] % (Auto) 8.4, Eos % (Auto) 1.4, [...] vertebral body compression fracture deformities. Reading Location: [facility] Assessment & Plan Assessment/Plan (1) Sepsis: [...] and sensitivity data. Give acetaminophen prn for cdlr-ta-frlqwufc (level 1-5/10) pain or fever. Give morphine [...] appreciated in advance. Finally, we will consult dual rate supervisor to see this patient on-rounds in the AM for further recommendations with help appreciated in advance. 2. Admission here from August 29, 2024 to September 02, 2024 with patient diagnosed with tdeds-lv-evjmpvv hypotension in the setting of acute hepatic [...] responsive hypotension Charges/Coding Visit Charges Inpatient E&M: 28137 Init Hosp L3 10/29/24 0647 <Electronically signed by Hill Caro DO> Cosigner Signature (if applicable): CC: Dr. Hill Caro DO; No Primary Care Physician~ Signed [facility] Work Phone: [phone]) 364-973203-28-2025 Consult note Author Ale Renee [facility] Note Date/Time October 29, 2024 3:3 4am [facility] Medical Records Department [address] [place] [address] Pharmacokinetic/Renal -Consult 10/29/24316 MR#: [id number] Acct: [id number] Name: FRANKLIN ARCHULETA Rep #:[id number] : [...] by Ale Renee> Date _ Ale Renee 10/29/24333 <Electronically signed by Hill Samuel nzo DO> Cosigner Signature (if applicable): Date de Hill Wright DO CC: ~ Signed [facility] Work Phone: [phone] Discharge summary Author Alber Dunn [facility] Note Date/Time October 29, 2024 1:0 4am [facility] Medical Records Department [address] [place] [address] Emergency Department Summary 10/28/24 MR#: [id number] Acct: [id number] Name: FRANKLIN ARCHULETA Rep #:[id number] : [...] Prior similar symptoms: Yes Recent Illness/Hospitalization: No [facility] Medical History Chronic hypotension Obesity [...] There is a pressure was 81/50 5 sbchqo85/60 when I am in the room it [...] 83.0 H Lymph % (Auto) 5.6 L [place] % (Auto) 8.4 Eos % (Auto) 1.4 [...] Clarity Cloudy Urine pH 6.5 Ur Specific [place] 1.015 Urine Protein 500 H Urine Glucose [...] vertebral body compression fracture deformities. Reading Location: [id number] Rhythm Strip Rhythm Strip: Sinus Rhythm Rate: 83 Ectopy: None EKG Initial EKG: Attestation: I personally reviewed and interpreted this EKG as follows: Interpretation: Sinus Rhythm and No Acute Injury Pattern Comments: Normal sinus rhythm rate 83 no acute signs of [place] or ischemia. No dysrhythmia. Critical Care Time Critical Care Time: Yes Critical care time (excluding procedures): 30-74 minutes, Including time spent:,Discussing w/Patient &/or Family/Face Worker, Discussing w/Consultants, ArrangingAdmission or Transfer, Performing Direct Patient Care at Bedside and - (38 min) Discharge Plan Dx/Rx/DC Orders Clinical Impression: Chronic back pain, Chronic abdominal pain, Leukocytosis, Acute UTI, Acute hypotension, Acidosis, lactic, Sepsis Disposition Disposition: [facility] What to do if you have Problems For any increased pain, shortness of breath, bleeding, nausea or vomiting, chestpain, or any unexpected problems, contact your Primary Care Provider. Call [facility] ([phone]) or report to the closest Emergency Room. Call 911 if necessary. 10/29/24 0104 <Electronically signed by Alber Dunn MD> Cosigner Signature (if applicable): CC: No Primary Care Physician ~ Signed [facility] Work Phone: [phone] Evaluation note* Diagnosis Onset Date Resolution Status Admit Date Clostridium difficile colitis acute October 29, 2024 12:43am History of uric acid staghor n calculus acute October 29, 2024 12:43am Hyponatremia acute October 29, 2024 12:43am Leukocytosis acute October 29, 2024 12:43am Obesity (BMI 30.0-34.9) acute M arch 2024 12:43am Chronic abdominal pain chronic [facility] 2024 12:43am Chronic back pain chronic [...] thor acic spine, non-traumatic acute January 09, 2:16pm Lactic acidosis acute January 09, 2025 2:16pm Leukocytosis acute January 09 2:16pm Metabolic acidosis acute January 092024 2:16pm Sepsis acute January 09, 2025 2:16pm Spinal stenosis, lumbar zuleyma on with neurogenic claudication acute Jan 2:16pm Umbilical hernia acute January 2:16pm Acute UTI acute January 28 7:00am Hepatic encephalopathy acute Ju 2024 7:00am Lactic acidosis acute January 7:00am [facility] Work Phone: [phone] Evaluation note* Diagnosis Onset Date Resolution Status Admit Date Clostridium difficile colitis acute October 29, 2024 [...] non-traumatic acute January 09, 2 025 2:16pm Lactic acidosis acute January 09, 2025 2:16pm Leukocytosis acute January 09 2:16pm Metabolic acidosis acute January 092024 2:16pm Sepsis resolved January 09, 2025 2:16pm Umbilical hernia acute January 2:16pm Spinal stenosis, lumbar zuleyma on with neurogenic claudication inactive Jan 2:16pm Abnormal urinalysis acute January 28, 2025 7:00am Acute UTI acute January 28 7:00am Hepatic encephalopathy acute Ju 2024 7:00am Lactic acidosis acute January 7:00am Umbilical hernia acute January 7:00am [facility] Work Phone: [phone] Evaluation note* Diagnosis Onset Date Resolution Status Admit Date Clostridium difficile colitis acute October 29, 2024 [...] non-traumatic acute January 09, 2 025 2:16pm Leukocytosis acute January 09 2:16pm Metabolic acidosis acute January 092024 2:16pm Sepsis resolved January 09, 2025 2:16pm Lactic acidosis resolved January 09, 2025 2:16pm Spinal stenosis, lumbar zuleyma on with neurogenic claudication inactive Jan 2:16pm Umbilical hernia inactive January 2:16pm Abnormal urinalysis acute January 28, 2025 7:00am Acute UTI acute January 28 7:00am Hepatic encephalopathy resolved Ju 2024 7:00am Lactic acidosis resolved January 7:00am Umbilical hernia inactive January 7:00am [facility] Work Phone: [phone] Discharge summary [facility] Medical Records Department [address] [place] [address] Emergency Department Summary 10/28/24 MR#: [id number] Acct: [id number] Name: FRANKLIN ARCHULETA Rep #:[id number] : [...] There is a pressure was 81/50 5 joqkom11/60 when I am in the room it [...] sepsis. Currently he is stable at12:[address] [facility] blood pressure is 110/67. Spoke to the [...] 83.0 H Lymph % (Auto) 5.6 L [place] % (Auto) 8.4 Eos % (Auto) 1.4 [...] Clarity Cloudy Urine pH 6.5 Ur Specific [place] 1.015 Urine Protein 500 H Urine Glucose [...] vertebral body compression fracture deformities. Reading Location: [facility] Rhythm Strip Rhythm Strip: Sinus Rhythm Rate: 83 Ectopy: None EKG Initial EKG: Attestation: I personally reviewed and interpreted this EKG as follows: Interpretation: Sinus Rhythm and No Acute Injury Pattern Comments: Normal sinus rhythm rate 83 no acute signs of [place] or ischemia. No dysrhythmia. Critical Care Time Critical Care Time: Yes Critical care time (excluding procedures): 30-74 minutes, Including time spent:,Discussing w/Patient &/or Family/Face Worker, Discussing w/Consultants, ArrangingAdmission or Transfer, Performing Direct Patient Care at Bedside and - (38 min) Discharge Plan Dx/Rx/DC Orders Clinical Impression: Chronic back pain, Chronic abdominal pain, Leukocytosis, Acute UTI, Acute hypotension, Acidosis, lactic, Sepsis Disposition Disposition: [facility] What to do if you have Problems For any increased pain, shortness of breath, bleeding, nausea or vomiting, chestpain, or any unexpected problems, contact your Primary Care Provider. Call [facility] ([phone]) or report tothe closest Emergency Room. Call 911 if necessary. 10/29/24 0104 Cosigner Signature (if applicable): CC: No Primary Care Physician ~ Signed [facility]03-27-2025 Radiology Diagnostic study note [facility] Imaging Services [address] [place], [place] [address] Abdomen/Pelvis W IV Cont ONLY MR#: [id number] Acct: [id number] Name: GEREMIASFRANKLINKarma CASEY Rep #: [id number] : 1965 M 59 From: Cassandra Starkey MD PCP: Care Physician,No Primary Status: REG ER Study:Abdomen/Pelvis W IV Cont ONLY Date of E xam: 10/28/24 Exam# [id number] Ordering Dr: Tee Dunn MD PROCEDURE: ABDOMEN/PELVIS [...] vertebral body compression fracture deformities. Reading Location: [facility] CC: Dr. Alber Dunn MD; No Primary Care Physician ~ Inspector Filters: Signed [facility]03-27-2025 Discharge summary Author Alber Dunn [facility] Note Date/Time October 29, 2024 1:0 4am [facility] Medical Records Department [address] [place] [address] Emergency Department Summary 10/28/24 MR#: [id number] Acct: [id number] Name: FRANKLIN ARCHULETA Rep #:[id number] : [...] 83.0 H Lymph % (Auto) 5.6 L [place] % (Auto) 8.4 Eos % (Auto) 1.4 [...] Clarity Cloudy Urine pH 6.5 Ur Specific [place] 1.015 Urine Protein 500 H Urine Glucose [...] vertebral body compression fracture deformities. Reading Location: [facility] Rhythm Strip Rhythm Strip: Sinus Rhythm Rate: 83 Ectopy: None EKG Initial EKG: Attestation: I personally reviewed and interpreted this EKG as follows: Interpretation: Sinus Rhythm and No Acute Injury Pattern Comments: Normal sinus rhythm rate 83 no acute signs of [place] or ischemia. No dysrhythmia. Critical Care Time Critical Care Time: Yes Critical care time (excluding procedures): 30-74 minutes, Including time spent:,Discussing w/Patient &/or Family/Face Worker, Discussing w/Consultants, ArrangingAdmission or Transfer, Performing Direct Patient Care at Bedside and - (38 min) Discharge Plan Dx/Rx/DC Orders Clinical Impression: Chronic back pain, Chronic abdominal pain, Leukocytosis, Acute UTI, Acute hypotension, Acidosis, lactic, Sepsis Disposition Disposition: Acute Care Hospital [facility] What to do if you have Problems For any increased pain, shortness of breath, bleeding, nausea or vomiting, chestpain, or any unexpected problems, contact your Primary Care Provider. Call [facility] ([phone]) or report to the closest Emergency Room. Call 911 if necessary. 10/29/24 0104 <Electronically signed by Alber Dunn MD> Cosigner Signature (if applicable): CC: No Primary Care Physician ~ Signed [facility] Work Phone: [phone] 576-481303-03-2025 Procedure note* Joey Huang DO - 10/04/2024 5:17 PM ESTAssociated Order(s): Paracentesis Post-Procedure Diagnose(s): Other ascites Paracentesis Date/Time: 10/04/2024 5:17 PM Performed by: Joey Huang DO Authorized by: Joey Huang DO Consent: Consent obtained: Written Consent given by: Patient Risks, benefits, and alternatives were discussed: yes Risks discussed: Bleeding, bowel perforation and infection Alternatives discussed: No treatment [place] protocol: Procedure explained and questions answered to [...] Adhesive bandage Post-procedure details: Procedure completion: Tolerated [facility] Work Phone: [phone] 620-451903-03-2025 Procedure note* Joey Huang DO - 10/04/2024 5:17 PM ESTAssociated Order(s): Paracentesis Post-Procedure Diagnose(s): Other ascites Paracentesis Date/Time: 10/04/2024 5:17 PM Performed by: Joey Huang DO Authorized by: Joey Huang DO Consent: Consent obtained: Written Consent given by: Patient Risks, benefits, and alternatives were discussed: yes Risks discussed: Bleeding, bowel perforation and infection Alternatives discussed: No treatment [place] protocol: Procedure explained and questions answered to [...] details: Procedure completion: Tolerated documented in this [facility] Work Phone: 1(593) 344-163503-03-2025 Consult note* Joey Huang, DO - 10/04/2024 5:13 PM EST Reason For Consult Ascites History Of Present Illness Franklin Archuleta is a 59 y.o. male presenting with abdominal pain. He presented to the emergency room from [facility] secondary to increasing abdominal girth pain and ascites He was recently drained at [facility] for his ascites His abdomen is [...] call Assessment & Plan Joey Huang DO [facility] Work Phone: 1([phone]) 239-831003-03-2025 Consult note* Joey Huang DO - 10/04/2024 5:13 PM EST Reason For Consult Ascites History Of Present Illness Franklin Archuleta is a 59 y.o. male presenting with abdominal pain. He presented to the emergency room from [facility] secondary to increasing abdominal girth pain and ascites He was recently drained at [facility] for his ascites His abdomen is [...] Plan Joey Huang DO documented in this [facility] Work Phone: [phone]) 523-831703-03-2025 Physician Emergency department Note* Sriram Oleary PA-C [...] Abnormality Status --------- ------ Urinalysis with Reflex C...[[id number]] Extra Urine Garvey Tube[[id number]] Please view results for these tests on the individual orders. URINALYSIS WITH REFLEX CULTURE AND MICROSCOPIC EXTRA URINE GARVEY TUBE PH, BODY FLUID LACTATE DEHYDROGENASE, BODY FLUID Narrative: The following orders were created for panel order Lactate Dehydrogenase, Body Fluid. Procedure Abnormality Status --------- ------ Lactate Dehydrogenase, B...[[id number]] In process Please view results for these tests on the individual orders. GLUCOSE, BODY FLUID Narrative: The following orders were created for panel order Glucose, Body Fluid. Procedure Abnormality Status --------- ------ Glucose, Body Fluid[[id number]] In process Please view results for these tests on the individual orders. PROTEIN, TOTAL, BODY FLUID Narrative: The following orders were created for panel order Protein, Total, Body Fluid. Procedure Abnormality Status --------- ------ Protein, Total, Body Fluid[[id number]] In process Please view results for these tests on the individual orders. BODY FLUID CELL COUNT WITH DIFFERENTIAL Narrative: The following orders were created for panel order Body Fluid Cell Count With Differential. Procedure Abnormality Status --------- ------ Body Fluid Cell Count[[id number]] In process Body Fluid Differential[[id number]] In process Please view results for these tests on the individual orders. ALBUMIN, BODY FLUID Narrative: The following orders were created for panel order Albumin, Body Fluid. Procedure Abnormality Status --------- ------ Albumin, Body Fluid[[id number]] In process Please view results for these [...] Yohana Huang 10/04/2024 2:28 PM Dictation workstation: [id number] Procedures Medical Decision Making Patient is a 59-year-old male with a hx of cirrhosis who presents to the emergency department with a chief complaint of abdominal pain from [facility]. He reports increased abdominal pain that he describes as generalized, states that his abdomen is distended. Recently had a paracentesis performed at [facility] on September 29. Patient reports that [...] cirrhosis type (Multi) Sriram Oleary PA-C 10/04/241736 [facility] Work Phone: 1(276) 254-626303-03-2025 Emergency department Note* Sriram Oleary PA-C - [...] Abnormality Status --------- ------ Urinalysis with Reflex C...[[id number]] Extra Urine Garvey Tube[[id number]] Please view results for these tests on the individual orders. URINALYSIS WITH REFLEX CULTURE AND MICROSCOPIC EXTRA URINE GARVEY TUBE PH, BODY FLUID LACTATE DEHYDROGENASE, BODY FLUID Narrative: The following orders were created for panel order Lactate Dehydrogenase, Body Fluid. Procedure Abnormality Status --------- ------ Lactate Dehydrogenase, B...[[id number]] In process Please view results for these tests on the individual orders. GLUCOSE, BODY FLUID Narrative: The following orders were created for panel order Glucose, Body Fluid. Procedure Abnormality Status --------- ------ Glucose, Body Fluid[[id number]] In process Please view results for these tests on the individual orders. PROTEIN, TOTAL, BODY FLUID Narrative: The following orders were created for panel order Protein, Total, Body Fluid. Procedure Abnormality Status --------- ------ Protein, Total, Body Fluid[[id number]] In process Please view results for these tests on the individual orders. BODY FLUID CELL COUNT WITH DIFFERENTIAL Narrative: The following orders were created for panel order Body Fluid Cell Count With Differential. Procedure Abnormality Status --------- ------ Body Fluid Cell Count[[id number]] In process Body Fluid Differential[[id number]] In process Please view results for these tests on the individual orders. ALBUMIN, BODY FLUID Narrative: The following orders were created for panel order Albumin, Body Fluid. Procedure Abnormality Status --------- ------ Albumin, Body Fluid[[id number]] In process Please view results for these [...] Yohana Huang 10/04/2024 2:28 PM Dictation workstation: [id number] Procedures Medical Decision Making Patient is a 59-year-old male with a hx of cirrhosis who presents to the emergency department with a chief complaint of abdominal pain from [facility]. He reports increased abdominal pain that he describes as generalized, states that his abdomen is distended. Recently had a paracentesis performed at [facility] on September 29. Patient reports that [...] cirrhosis type (Multi) Sriram Oleary PA-C 10/04/241736 documented in this [facility] Work Phone: [phone]) [phone] Evaluation note* Diagnosis Onset Date Resolution Status [...] 2 :16pm Umbilical hernia acute January 2:16pm [facility] [place] Work Phone: 1(242) 436-597902-26-2025 Procedure note [facility] Medical Records Department [address] [facility] [place] [address] Operative Report 09/29/24 1048 MR#: [id number] Acct: [id number] Name: FRANKLIN ARCHULETA Rep #:[id number] : 1965 59 From: Jasmine gusman NP DIRECTOR OF ARCHITECTURE-C PCP: Care Physician,No Primary Status :REG CLI Location: US Problems Associated Problem List Diagnoses (1) Abdominal ascites: Multi Select C[facility] Radiology Radiology US Procedures: 46255 Paracentesis Operative Report (Standard) Operative Information Date of Procedure: 09/29/24 Pre-Operative Diagnosis: Abdominal ascites Post-Operative Diagnosis: Abdominal ascites Surgery/Procedure Performed: Ultrasound-guided paracentesis management trainee: No Type of Anesthesia: Local Procedure Start Time: 09:55 Procedure Stop Time: 10:17 Select all DRAINS/GRAFTS/IMPLANTS that apply: None Estimated Blood Loss: 0 Specimen collected: No Description of surgery: PROCEDURE: Ultrasound guided paracentesis ORDERING PROVIDER: Diane Guillen NP INDICATION: Male, 59 years old. Abdominal ascites. PROVIDER: Jasmine Morocho STORE KEEPER TECHNIQUE: The risks, benefits, and alternatives to [...] the peritoneal cavity was accessed with a 5-Bermudian paracentesis needle/catheter system. The trocar was removed. [...] No Primary Care Physician; DIANE GUILLEN~ Signed [facility] [place]02-02-2025 Evaluation note* Diagnosis Onset Date Resolution Status [...] pain inactive ua2024 1:46am Chronic hypotension inactive Febru ace 2024 1:46am Hepatic encephalopathy inactive Fe bruary 2024 1:46am Hyperbilirubinemia inactive ua ry 2024 1:46am Hypotension inactive September 05, 2024 1:46am 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) inactive September 05, 1:46am Obesity (BMI 30-39.9) inactive b ruary [...] 2024 12:43am Chronic abdominal pain chronic [facility] 2024 12:43am Chronic back pain chronic [...] 6:06am Fall acute January 02, 2025 6:06am [facility] [place] Work Phone: 1(330) 291-284302-02-2025 Evaluation note* Diagnosis Onset Date Resolution Status Admit Date Ambulatory dysfunction acute 2024 1:46am Generalized weakness acute ua2024 1:46am Staghorn calculus acute 2024 1:46am Acute cystitis with hematuria resolv ed September 05, 2024 1:46am Impaired renal function resolved F ebru2024 1:46am Lactic acidosis resolved September 05, 2024 1:46am Leukocytosis resolved September 1:46am Metabolic encephalopathy resolved September 05, 2024 1:46am ISABEL (acute kidney injury) inactive September 05, 2024 1:46am Chronic back pain inactive 2024 1:46am Chronic hypotension inactive 2024 1:46am Hepatic encephalopathy inactive 2024 1:46am [...] 2:16pm Sepsis acute January 09, 2025 2:16pm [facility] [place] Work Phone: 1(703) 523-835001-27-2025 Evaluation note* Diagnosis Onset Date Resolution Status Admit Date ISABEL (acute kidney injury) inactive August 29, 2024 10:09pm Hepatic encephalopathy inactive Ja nuary 2024 10:09pm Hypotension inactive August 29, 2024 10:09pm Ambulatory dysfunction acute Fe bruary 2024 1:46am Generalized weakness acute Febr uary 2024 1:46am Staghorn calculus acute uar 2024 1:46am Acute cystitis with hematuria resolv ed September 05, 2024 1:46am Impaired renal function resolved 2024 1:46am Lactic acidosis resolved September 05, 2024 1:46am Leukocytosis resolved September 1:46am Metabolic encephalopathy resolved September 05, 2024 1:46am ISABEL (acute kidney injury) inactive September 05, 2024 1:46am Chronic back pain inactive ua2024 1:46am Chronic hypotension inactive Febru ace 2024 1:46am Hepatic encephalopathy inactive bruary 2024 1:46am Hyperbilirubinemia inactive 2024 1:46am Hypotension inactive September 05, 2024 1:46am 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) inactive September 05 1:46am Obesity (BMI 30-39.9) inactive Sep 1:46am ABBY on CPAP inactive September 05, 2024 1:46am Cirrhosis of liver deleted 2024 1:46am Abdominal ascites acute 2024 9:35am [facility] [place] Work Phone: 1(550) 408-376301-27-2025 Evaluation note* Diagnosis Onset Date Resolution Status Admit Date ISABEL (acute kidney injury) inactive August 29, 2024 10:09pm Hepatic encephalopathy inactive [facility] 2024 10:09pm Hypotension inactive August 29, 2024 10:09pm Ambulatory dysfunction acute 2024 1:46am Generalized weakness acute uary 2024 1:46am Staghorn calculus acute ua2024 1:46am Acute cystitis with hematuria resolv ed September 05, 2024 1:46am Impaired renal function resolved 2024 1:46am Lactic acidosis resolved September 05, 2024 1:46am Leukocytosis resolved September 1:46am Metabolic encephalopathy resolved September 05, 2024 1:46am ISABEL (acute kidney injury) inactive September 05, 2024 1:46am Chronic back pain inactive ua2024 1:46am Chronic hypotension inactive Febru ace 2024 1:46am Hepatic encephalopathy inactive Fe 2024 1:46am Hyperbilirubinemia inactive ry 2024 1:46am Hypotension inactive September 05, 2024 1:46am 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) inactive September 05, 1:46am Obesity (BMI 30-39.9) inactive Sep ru2024 1:46am ABBY on CPAP inactive September 05, 2024 1:46am Cirrhosis of liver deleted Febr2024 1:46am Abdominal ascites acute ua y 2024 9:35am Acidosis, lactic acute October 292024 12:43am Acute hypotension acute October 032024 12:43am Acute UTI acute October 29 12:43am Diarrhea acute October 29 12:43am History of uric acid staghor n calculus acute October 29, 2024 12:43am Leukocytosis acute October 29, 2024 12:43am Obesity (BMI 30.0-34.9) acute M arch 2024 12:43am Sepsis acute October 29 12:43am Chronic abdominal pain chronic [facility] 2024 12:43am Chronic back pain chronic October 032024 12:43am [facility] [place] Work Phone: 1(291) 755-376601-27-2025 Evaluation note* Diagnosis Onset Date Resolution Status [...] 1:46am Abdominal ascites acute y 2024 9:35am Acidosis, lactic acute October [...] October 29 12:43am Chronic abdominal pain chronic [facility] 2024 12:43am Chronic back pain chronic October 032024 12:43am [facility] [place] Work Phone: 1(645) 784-223801-27-2025 Evaluation note* Diagnosis Onset Date Resolution Status Admit Date ISABEL (acute kidney injury) inactive August 29, 2024 10:09pm Hepatic encephalopathy inactive Ja nuary 2024 10:09pm Hypotension inactive August 29, 2024 10:09pm Ambulatory dysfunction acute 2024 1:46am Generalized weakness acute Febr uary 2024 1:46am Staghorn calculus acute uar 2024 1:46am Acute cystitis with hematuria resolv [...] 4:28am Staghorn calculus acute November 032024 4:28am [facility] [place] Work Phone: 1(592) 569-436501-27-2025 Evaluation note* Diagnosis Onset Date Resolution Status [...] ace 2024 1:46am Hepatic encephalopathy inactive Fe bru2024 1:46am Hyperbilirubinemia inactive 2024 1:46am Hypotension inactive [...] 2024 12:43am Chronic abdominal pain chronic [facility] 2024 12:43am Chronic back pain chronic [...] infection) resolv ed November 28, 2024 4:51pm [facility] [place] Work Phone: Discharge summary Author Hebrerth Carlson [facility] Note Date/Time November 21, 2024 4:1 6am [facility] Medical Records Department [address] [place] [address] Emergency Department Summary 11/21/24 MR#: [id number] Acct: [id number] Name: FRANKLIN ARCHUELTA Rep #:[id number] : 1965 59 From: [...] discontinue his lactulose. He was recently admitted [facility] for cirrhosis and other issues, he states [...] toilet after multiple attempts over couple hours. [facility] Medical History Diarrhea Sepsis Acidosis, lactic Acute [...] (Auto) 68.7 Lymph % (Auto) 13.9 L [place] % (Auto) 9.2 Eos % (Auto) 7.2 [...] Sl Cldy Urine pH 6.0 Ur Specific [place] 1.015 Urine Protein 500 H Urine Glucose [...] process. Follow-up to resolution recommended. Reading Location: [facility] Management Discussion w/another healthcare provider: Hospitalist Discharge [...] Primary [Primary Care Provider] - Print Language: Rwandan Disposition Disposition: Acute Care Hospital [facility] What to do if you have Problems For any increased pain, shortness of breath, bleeding, nausea or vomiting, chestpain, or any unexpected problems, contact your Primary Care Provider. Call [facility] ([phone]) or report to the closest Emergency Room. Call 911 if necessary. 11/21/24 0416 <Electronically signed by Herberth Carlson MD> Cosigner Signature (if applicable): CC: No Primary Care Physician ~ Signed [facility] Work Phone: Discharge summary Author Mina Blood [facility] Note Date/Time December 30, 2024 5:19a m [facility] Medical Records Department [address] [place] [address] Emergency Department Summary 12/30/24 MR#: [id number] Acct: [id number] Name: FRANKLIN ARCHULETA Rep #:[id number] : [...] recent trauma prior to the pain beginning. [facility] Medical History Weakness Diarrhea Sepsis [...] (Auto) 69.7 Lymph % (Auto) 14.0 L [place] % (Auto) 9.1 Eos % (Auto) 6.2 [...] Clarity Cloudy Urine pH 6.5 Ur Specific [place] 1.010 Urine Protein 100 H Urine Glucose [...] No evidence of acute disease. Reading Location: [facility] Chest x-ray as interpreted by the [...] you have any further concerns Print Language: Rwandan Disposition Disposition: Home, Self Care What to do if you have Problems For any increased pain, shortness of breath, bleeding, nausea or vomiting, chestpain, or any unexpected problems, contact your Primary Care Provider. Call [facility] ([phone]) or report to the closest Emergency Room. Call 911 if necessary. 12/30/24 0519 <Electronically signed by Mina Blood DO> Cosigner Signature (if applicable): CC: YG Elias ~ Signed [facility] Work Phone: Discharge summary Author Roddy Reeves [facility] Note Date/Time January 02, 2025 6:00a m [facility] Medical Records Department [address] [place] [address] Emergency Department Summary 01/02/25 MR#: [id number] Acct: [id number] Name: FRANKLIN ARCHULETA Rep #:[id number] : 1965 59 From: Roddy Reeves DO PCP: Josy Elias DIRECTOR OF ARCHITECTURE-C Status:REG E R Location: ED HPI History [...] was here recently and was sent home. [facility] Medical History Weakness Diarrhea Sepsis [...] Patient following commands that he [facility] that wewere in the end of [...] (Auto) 68.0 Lymph % (Auto) 12.2 L [place] % (Auto) 11.9 H Eos % (Auto) [...] Clarity Turbid Urine pH 6.0 Ur Specific [place] 1.015 Urine Protein 100 H Urine Glucose [...] insufficiency fracture again noted, unchanged. Reading Location: [id number] Brain CT 01/02/25 03:55 IMPRESSION: No intracranial hemorrhage, mass effect or calvarial fracture. Moderate volume loss, atrophy again noted. Mild left maxillary sinus disease appears mildly decreased from the prior study. Reading Location: [facility] Cervical Spine CT 01/02/25 03:55 IMPRESSION: No fracture or malalignment. Multilevel spondylosis/discogenic change greatest at C5-6 Reading Location: [facility] Discharge Plan Triage Chief Complaint: Weakness [...] NP-C [Primary Care Provider] - Print Language: Rwandan Disposition Disposition: Acute Care Hospital [facility] What to do if you have Problems For any increased pain, shortness of breath, bleeding, nausea or vomiting, chestpain, or any unexpected problems, contact your Primary Care Provider. Call [facility] ([phone]) or report to the closest Emergency Room. Call 911 if necessary. 01/02/25 0600 <Electronically signed by Roddy Reeves DO> Cosigner Signature (if applicable): CC: YG Elias ~ Signed [facility] Work Phone: Discharge summary Author Mina Blood [facility] Note Date/Time February 08, 2025 3:03a m [facility] Medical Records Department [address] [place] [address] Emergency Department Summary 02/08/25 MR#: [id number] Acct: [id number] Name: GEREMIASFRANKLINKarma CASEY Rep #:[id number] : 1965 59 From: Mina Blood DO PCP: Dr. Jerald Sherwood MD Status:REG E R Location: ED HPI History of Present Illness Chief Complaint: Abd Pain Informant: patient Narrative Narrative: Patient is a 59-year-old male with past medical history of cirrhosis as well as insulin-dependent diabetes. He was admitted to the hospital roughly 1 week ago secondary to hepatic encephalopathy and discharged. He states he has been doingwell but has noticed that he has been having increased fluid building up within his abdomen and now there is a lump and pain. Secondary to the worsening painhe presents for evaluation. He states that there has been no bouts of vomiting and he denies any recent bouts of constipation fevers chills or dysuria. [facility] Medical History (Updated 02/08/25 @ 03:[address] Mina Blood DO) VRE (vancomycin resistant enterococcus) culture positive Spinal stenosis, lumbar region with neurogenic claudication Hepatic encephalopathy Umbilical hernia Chronic hyponatremia Weakness Diarrhea Sepsis Acidosis, lactic Acute hypotension Acute UTI Chronic hypotension Obesity (BMI 30-39.9) Chronic back pain ISABEL (acute kidney injury) Hypotension Hyperbilirubinemia Liver 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 (nonalcoholic [...] s 11/21/24 11/27/24 History release 24 hr sodium bicarbonate 650 mg tablet 650 mg PO BID supplem ent 11/21/24 11/28/24 History thiamine HCl (vitamin B1) [...] 1 11/25/24 Unknown Rx month #90 tabs cyclobenzaprine 10 mg tablet 10 mg PO QHS muscle relax er 01/02/25 Unknown History Held on 01/31/25. Instructions: Until you have completed your antibiotic then okay to restart ferrous sulfate 325 mg (65 mg 325 mg PO QODAY suppleme nt 01/02/25 Unknown History iron) tablet (FeroSul) insulin lispro 100 unit/mL 10 unit (0.1 mL) subcut TID AC #0 mL 01/05/25 Unknown Rx subcutaneous pen (Humalog KwikPen (U-100) Insulin) spironolactone 100 mg tablet 100 mg PO DAILY 1 month # 30 tabs 01/21/25 Unknown Rx spironolactone 25 mg tablet 25 mg PO DAILY 30 days #30 tabs 01/21/25 Unknown Rx omeprazole 20 mg capsule,delayed 20 mg PO DAILY Unknown History release oxycodone 5 mg tablet 2.5 mg PO Q8H PRN Pain Score 4-10 01/28/25 Unknown History Or Pre Pt/Ot insulin glargine-yfgn 100 unit/mL 20 unit (0.2 mL) sub cut QHS #15 mL 01/31/25 Unknown Rx (3 mL) subcutaneous pen lactulose 10 gram/15 mL oral 10 g (15 mL) PO TID #3,00 0 mL 01/31/25 Unknown Rx solution linezolid 600 mg tablet 600 mg PO BID #5 tabs Unknown Rx pen needle, diabetic 31 gauge x #1,200 ea 01/31/25 Unk nown Rx 5/16 (Pen Needle) oxycodone 5 mg tablet 5 mg PO Q6H PRN pain 3 days #12 02/08/25 Unknown Rx tabs Allergy/AdvReac Type Severity Reaction Status Date / Time No Known Allergies Allergy Verified 02/07/25 19:23 Family History Mother Heart disease Hypertension CAD [...] fever(s) Eyes Eyes: Denies change in vision ENT ENT ED: Denies sore throat Cardiovascular Cardiovascular: Denies chest pain Respiratory/Chest Respiratory/Chest: Denies cough or dyspnea Gastrointestinal Gastrointestinal: Reports abdominal pain and nausea; Denies constipation, diarrhea or vomiting Genitourinary Genitourinary ED: Denies dysuria Musculoskeletal Musculoskeletal: Denies back pain Integumentary Denies rash Neurologic Neurologic: Denies headache(s) Hematologic/Lymphatic Hematologic/Lymphatic: Reports easy bleeding and easy bruising EXAM Physical Exam Const Vital Signs: 02/07/25 19:24 02/07/25 22:19 02/08/25 00:03 Temperature 97.6 F L Temperature Source Temporal Pulse Rate 63 58 L Respiratory Rate 18 20 H Blood Pressure 94/57 L 98/68 115/66 Blood Pressure Mean 69 78 82 Pulse Ox 99 100 Oxygen Delivery Method Room Air Room Air 02/08/25 01:26 Temperature 97.6 F L Temperature Source Pulse Rate 62 Respiratory Rate 18 Blood Pressure 97/63 Blood Pressure Mean 74 Pulse Ox 100 Oxygen Delivery Method Positive well nourished, well developed and obese General Appearance ED: well developed Nutritional Appearance: obese HEENT HEENT Narrative: Normocephalic atraumatic Eyes PERRL and EOMs intact bilaterally Neck supple and no JVD Neck Narrative: No nuchal rigidity or meningeal signs Resp normal respiratory effort and clear to auscultation bilaterally Resp Narrative: Breath sounds are diminished throughout but overall clear to auscultation without signs of respiratory distress Cardio regular rate and regular rhythm Rate: other Other Details: Radial and carotid pulses are equal and symmetric GI GI Narrative: There is mild abdominal distention with positive fluid wave consistent with ascites There is an umbilical hernia present as well and there is pain with palpation atthe hernia site with difficulty reducing the hernia concerning for incarceration. No pulsatile mass. No peritoneal signs Auscultation: normoactive bowel sounds Palpation: soft Extremity Extremity Narrative: +2-3 pitting edema of the bilateral lower extremities is equal and symmetric andconsistent with worsening ascites Negative Homans' sign bilaterally Neuro oriented x3, CN's II-XII intact bilaterally and no sensory deficits noted Sensorium / Orientation: alert Psych Psych Narrative: Patient has a flat affect Skin Skin Narrative: Patient has mild jaundice consistent with history of cirrhosis MDM MDM MDM Narrative Medical decision making narrative: Patient presented to the ER complaining of abdominal pain. His exam is consistent with worsening ascites secondary to his chronic finding of cirrhosis. However on exam he does have a ventral hernia that he states is the main cause of his pain and it does feel to be incarcerated upon initial evaluation. Basic blood work was obtained to check for potential signs of infection versus acute kidney injury versus potential pancreatitis. Lipase is normal going against pancreatitis creatinine is normal going against ISABEL and his white count is normal without left shift going against secondary infection. An ice pack was placed over top the ventral hernia and then manual pressure was applied. There was spontaneous reduction of the hernia. In order to ensure that the hernia hadbeen reduced and that there is no persistent incarceration or secondary cause for abdominal pain such as small bowel obstruction or intestinal abscess or perforation I did add a CT scan with IV contrast. CT scan confirmed a ventral hernia but states that there is fat within the hernia that shows changes consistent with incarceration but there is no intestine within the hernia. Therefore at this time the patient's vitals are stable the exam and CT scan correlate that the patient did have an incarcerated hernia but as it contains fat in that intestine my concern for intestinal necrosis and perforation therefore is very low and he does not need to be admitted or emergently seen by general surgery as fat necrosis is a nonemergent [id number] process. The patient will be given pain medication secondary to this but as there is no signs of intestinal obstruction or intestinal incarceration or perforation he isotherwise safe for discharge History & Record Review Discussion w/independent historian: Patient Lab Data Attestation: I reviewed the patient's lab results. Labs: Laboratory Results - last 24 hr 02/07/25 21:10 WBC 10.8 RBC 3.17 L Hgb 9.2 L Hct 28.8 L MCV 90.9 MCH 29.0 MCHC 31.9 L RDW Std Deviation 58.3 H RDW Coeff of Francis 17.9 H Plt Count 131 L MPV 10.1 Immature Gran % (Auto) 0.400 Neut % (Auto) 72.8 H Lymph % (Auto) 12.8 L [place] % (Auto) 8.1 Eos % (Auto) 5.4 H Baso % (Auto) 0.5 Absolute Neuts (auto) 7.9 H Absolute Lymphs (auto) 1.39 Nucleated RBC % 0 Sodium 137 Potassium 3.7 Chloride 106 Carbon Dioxide 22.7 Anion Gap 9 BUN 15 Creatinine 1.05 Est GFR (MDRD) Non-Af 82 BUN/Creatinine Ratio 13.9 Glucose 142 H Calcium 8.4 Total Bilirubin 1.92 H AST 55 H ALT 30 Alkaline Phosphatase 218 H Total Protein 5.8 L Albumin 2.2 L Globulin 3.5 Albumin/Globulin Ratio 0.6 L Lipase 35 Radiography Diagnostic Testing: Clinical Impression(s) from Imaging Studies Abdomen/Pelvis CT 02/07/25 22:47 IMPRESSION: Findings of liver cirrhosis. Splenomegaly with perisplenic varices consistent with portal hypertension. Cholelithiasis, no cholecystitis. Ascites. Fat containing umbilical hernia with thickening of the herniated fat suggestive of incarceration/strangulation. Fat and fluid containing left inguinal hernia. Large left renal staghorn stone with double-J stent in place. Anasarca. Reading Location: [place] [address] Discharge Plan Triage Chief Complaint: Abd Pain ED Provider: Mina Blood Dx/Rx/DC Orders Clinical Impression: Ventral hernia, Abdominal ascites, Hepatic cirrhosis, Insulin dependent diabetes mellitus Instructions: ED Hernia (Adult) Prescriptions: New oxycodone 5 mg tablet 5 mg PO Q6H PRN (Reason: pain) 3 Days Qty: 12 0RF No Action Xifaxan 550 mg Tablet 550 mg PO BID Qty: 60 0RF cyclobenzaprine 10 mg tablet 10 mg PO QHS ferrous sulfate [FeroSul] 325 mg (65 mg iron) tablet 325 mg PO QODAY insulin lispro [Humalog KwikPen Insulin] 100 unit/mL Insulin Pen 10 unit subcut TIDAC Qty: 0 0RF omeprazole 20 mg capsule,delayed release(DR/EC) 20 mg PO DAILY oxycodone 5 mg Tablet 2.5 mg PO Q8H PRN (Reason: Pain Score 4-10 Or Pre Pt/Ot) lactulose 10 gram/15 mL Solution 10 g PO TID Qty: 3000 0RF Rx Instructions: Goal is 2-3 bowel movements daily if you are having more than this with this amount of lactulose decrease dose to twice daily from 3 times daily linezolid 600 mg Tablet 600 mg PO BID Qty: 5 0RF insulin glargine-yfgn 100 unit/mL (3 mL) Insulin Pen 20 unit subcut QHS Qty: 15 1RF (DME) pen needle, diabetic [Pen Needle] 31 gauge x 5/16 needle See Rx Instructions .Route Qty: 1200 0RF Rx Instructions: As directed folic acid 1 mg tablet 1 mg [...] 100 mg tablet 100 mg PO DAILY zinc sulfate 50 mg zinc (220 mg) tablet 50 mg PO DAILY midodrine 10 mg tablet 10 mg PO TID 30 Days Qty: 90 0RF Rx Instructions: do not give last dose of day after 6PM or within 4 hrs of bedtime ascorbic acid (vitamin C) 500 mg tablet 500 mg PO BID Qty: 60 2RF spironolactone 25 mg Tablet 25 mg PO DAILY 30 Days Qty: 30 2RF Rx Instructions: total 125 mg daily Hold for serum potassium more than 5.0 spironolactone 100 mg tablet 100 mg PO DAILY 30 Days Qty: 30 2RF Rx Instructions: Hold for serum potassium more than 5.0. Total 125 mg daily. Other Ambulatory Orders: Paracentesis with US (Routine) Facility: [facility] - Location: [facility] Ordered By: Dr. Mina Blood Primary Care Provider: Jerald Sherwood Referrals: Jerald Sherwood MD [Primary Care Provider] - Jefferson Malave MD [Med Staff - Active Staff] - Activity Restrictions/Additional Instructions: Your CT scan showed you have a ventral hernia which is a hernia through the bellybutton. At this time it contains a piece of fat and that is what is causing the increased pain. However as there is no intestine stuck in the hernia and there is no sign of gangrene or bowel blockage there is no need for emergent surgery. Take the prescribed pain medication as directed to help control symptoms and follow-up with the general surgeon to discuss further treatment options. Return to the ER should you have any further concerns. Print Language: Rwandan Disposition Disposition: Home, Self Care What to do if you have Problems For any increased pain, shortness of breath, bleeding, nausea or vomiting, chestpain, or any unexpected problems, contact your Primary Care Provider. Call [facility] ([phone]) or report to the closest Emergency Room. Call 911 if necessary. 02/08/25 0303 <Electronically signed by Mina Blood DO> Cosigner Signature (if applicable): CC: Dr. Jerald Sherwood MD ~ Signed [facility] [place] Work Phone: Evaluation note* Diagnosis Other ascites- Primary Abdominal pain, generalized Cirrhosis of liver with ascites, unspecified hepatic cirrhosis type (Multi) Peripheral edema Edema Coagulopathy (Multi) Other and unspecified coagulation defects Hyperbilirubinemia Disorders of bilirubin excretion documented in this encounter [facility] Work Phone: Evaluation note* Diagnosis Metabolic dysfunction-associated steatohepatitis (MASH)- Primary [facility] Diagnosis Liver transplant candidate- Primary Metabolic dysfunction-associated steatohepatitis (MASH) [facility] Diagnosis Pre-transplant evaluation for liver transplant- Primary [facility] Diagnosis Liver transplant candidate- Primary Pre-operative clearance Preoperative examination, unspecified [facility] Screening for genitourinary condition Screening for other and unspecified genitourinary condition [facility] Author Buster Fuchs [facility] [place] Note Date/Time January 02, 2025 6:44a m [facility] Medical Records Department [address] Sán[place] [address] H&P Exam - Hospitalist 01/02/25 0556 MR#: [id number] Acct: [id number] Name: FRANKLIN ARCHULETA Rep #:[id number] : 1965 59 From: Buster duarte MD PCP: BRITTANY PenaC Status:ADM I N Location: [place] [address] HPI - General General Date of [...] At that time he was transferred to [facility] 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 Was not considered to be a liver transplant candidate and was placed on anticoagulation. He has had a couple of readmissions for weakness and debility. [place] to possibly have aUTI given a staghorn [...] Heis receiving potassium infusion in the ER. [facility] Medical History Weakness Diarrhea Sepsis [...] (Auto) 68.0, Lymph % (Auto) 12.2 L, [place] % (Auto) 11.9 H, Eos % (Auto) [...] insufficiency fracture again noted, unchanged. Reading Location: [facility] Brain CT 01/02/25 03:55 IMPRESSION: No intracranial hemorrhage, mass effect or calvarial fracture. Moderate volume loss, atrophy again noted. Mild left maxillary sinus disease appears mildly decreased from the prior study. Reading Location: [facility] Cervical Spine CT 01/02/25 03:55 IMPRESSION: No fracture or malalignment. Multilevel spondylosis/discogenic change greatest at C5-6 Reading Location: [facility] Assessment & Plan Assessment/Plan (1) Fall: [...] once verified Charges/Coding Visit Charges Inpatient E&M: 39518 Init Hosp L2 01/02/25 0644 <Electronically signed by Buster Fuchs MD> Cosigner Signature (if applicable): CC: YG Elias; Dr. Buster Fuchs MD~ Signed [facility] [place] Work Phone: Hospital Discharge instructions* Attachments The following attachments cannot be sent through Care Everywhere. * Cirrhosis (Rwandan) * Abdominal pain ([place]) [facility] Discharge instructions Additional [...] ER should [facility] have any [facility] Work Phone: Hospital Discharge instructionsAdditional Instructions Your CT scan showed you have a ventral hernia which is a hernia through the bellybutton. At this time it contains a piece of fat and that is what is causing the increased pain. However as there is no intestine stuck in the hernia and there is no sign of gangrene or bowel blockage there is no need for emergent surgery. Take the prescribed pain medication as directed to help control symptoms and follow-up with the general surgeon to discuss further treatment options. Return to the ER should you have any further concerns.[facility] [place] Work Phone: Reason for referral (narrative)No reason for referral information availableWOhio[facility] Work Phone: Summary Purpose Family History [...] Will No August 21 2:51pm Power of Core Shaper Top No August 21, 2024 2:51pm Living Will No August 30 12:39am Power of Core Shaper Top No August 30, 2024 12:39am Living Will No September 05 4:42am Power of Core Shaper Top No September 05, 2024 4:42am Advance Directive Response Recorded Date/ Time Living Will No August 21 2:51pm Do you have a Healthcare Power of Core Shaper Top? No August 21, 2024 2:51pm Living Will No August 30 12:39am Do you have a Healthcare Power of Core Shaper Top? No August 30, 2024 12:39am Living Will No September 05 4:42am Do you have a Healthcare Power of Core Shaper Top? No September 05, 2024 4:42am Living Will No October 28, 2024 5:24pm Do you have a Healthcare Power of Core Shaper Top? No October 28, 2024 5:24pm Advance Directive Response Recorded Date/ Time Living Will No August 21 2:51pm Do you have a Healthcare Power of Core Shaper Top? No August 21, 2024 2:51pm Living Will No August 30 12:39am Do you have a Healthcare Power of Core Shaper Top? No August 30, 2024 12:39am Living Will No September 05 4:42am Do you have a Healthcare Power of Core Shaper Top? No September 05, 2024 4:42am Living Will No October 29, 2024 1:46am Do you have a Healthcare Power of Core Shaper Top? No October 29, 2024 1:46am Date Activated Date Inactivated Comments 11/11/2024 7:22 AM Question Answer Comments Full Code Order Discussed With: Patient Date Activated Date Inactivated Comments 11/11/2024 7:22 AM Advance Directive Response Recorded Date/ Time Living Will No August 21 2:51pm Do you have a Healthcare Power of Core Shaper Top? No August 21, 2024 2:51pm Living Will No August 30 12:39am Do you have a Healthcare Power of Core Shaper Top? No August 30, 2024 12:39am Living Will No September 05 4:42am Do you have a Healthcare Power of Core Shaper Top? No September 05, 2024 4:42am Living Will No October 29, 2024 1:46am Do you have a Healthcare Power of Core Shaper Top? No October 29, 2024 1:46am Living Will Yes November 21, 2024 1:32am Do you have a Healthcare Power of Core Shaper Top? Yes November 21, 2024 1:32am Name of Medical Power of Core Shaper Top anne Hernandez November 21, 2024 1:32am Advance Directive Response Recorded Date/ Time Living Will No August 21 2:51pm Do you have a Healthcare Power of Core Shaper Top? No August 21, 2024 2:51pm Living Will No August 30 12:39am Do you have a Healthcare Power of Core Shaper Top? No August 30, 2024 12:39am Living Will No September 05 4:42am Do you have a Healthcare Power of Core Shaper Top? No September 05, 2024 4:42am Living Will No October 29, 2024 1:46am Do you have a Healthcare Power of Core Shaper Top? No October 29, 2024 1:46am Living Will Yes November 21, 2024 5:32am Do you have a Healthcare Power of Core Shaper Top? Yes November 21, 2024 5:32am Name of Medical Power of Core Shaper Top anne Hernandez November 21, 2024 5:32am Do you have a Healthcare Power of Core Shaper Top? No November 28, 2024 5:49pm Advance Directive Response Recorded Date/ Time Living Will No August 30 12:39am Do you have a Healthcare Power of Core Shaper Top? No August 30, 2024 12:39am Living Will No September 05 4:42am Do you have a Healthcare Power of Core Shaper Top? No September 05, 2024 4:42am Living Will No October 29, 2024 1:46am Do you have a Healthcare Power of Core Shaper Top? No October 29, 2024 1:46am Living Will Yes November 21, 2024 5:32am Do you have a Healthcare Power of Core Shaper Top? Yes November 21, 2024 5:32am Name of Medical Power of Core Shaper Top Mary héctrogabrielle November 21, 2024 5:32am Do you have a Healthcare Power of Core Shaper Top? No November 28, 2024 5:49pm Advance Directive Response Recorded Date/ Time Living Will No August 30 12:39am Do you have a Healthcare Power of Core Shaper Top? No August 30, 2024 12:39am Living Will No September 05 4:42am Do you have a Healthcare Power of Core Shaper Top? No September 05, 2024 4:42am Living Will No October 29, 2024 1:46am Do you have a Healthcare Power of Core Shaper Top? No October 29, 2024 1:46am Living Will Yes November 21, 2024 5:32am Do you have a Healthcare Power of Core Shaper Top? Yes November 21, 2024 5:32am Name of Medical Power of Core Shaper Top Mary anne November 21, 2024 5:32am Do you have a Healthcare Power of Core Shaper Top? No November 28, 2024 5:49pm Do you have a Healthcare Power of Core Shaper Top? No December 26, 2024 10:02am Advance Directive Response Recorded Date/ Time Living Will No August 30 12:39am Do you have a Healthcare Power of Core Shaper Top? No August 30, 2024 12:39am Living Will No September 05 4:42am Do you have a Healthcare Power of Core Shaper Top? No September 05, 2024 4:42am Living Will No October 29, 2024 1:46am Do you have a Healthcare Power of Core Shaper Top? No October 29, 2024 1:46am Living Will Yes November 21, 2024 5:32am Do you have a Healthcare Power of Core Shaper Top? Yes November 21, 2024 5:32am Name of Medical Power of Core Shaper Top anne Hernandez November 21, 2024 5:32am Do you have a Healthcare Power of Core Shaper Top? No November 28, 2024 5:49pm Do you have a Healthcare Power of Core Shaper Top? No December 26, 2024 10:02am Do you have a Healthcare Power of Core Shaper Top? No December 30, 2024 1:06am Advance Directive Response Recorded Date/ Time Do you have a Healthcare Power of Core Shaper Top? No January 02, 2025 2:59am Living Will No September 05 4:42am Do you have a Healthcare Power of Core Shaper Top? No September 05, 2024 4:42am Living Will No October 29, 2024 1:46am Do you have a Healthcare Power of Core Shaper Top? No October 29, 2024 1:46am Living Will Yes November 21, 2024 5:32am Do you have a Healthcare Power of Core Shaper Top? Yes November 21, 2024 5:32am Name of Medical Power of Core Shaper Top anne Hernandez November 21, 2024 5:32am Do you have a Healthcare Power of Core Shaper Top? No November 28, 2024 5:49pm Do you have a Healthcare Power of Core Shaper Top? No December 26, 2024 10:02am Do you have a Healthcare Power of Core Shaper Top? No December 30, 2024 1:06am Advance Directive Response Recorded Date/ Time Do you have a Healthcare Power of Core Shaper Top? No January 02, 2025 8:14am Living Will No September 05 4:42am Do you have a Healthcare Power of Core Shaper Top? No September 05, 2024 4:42am Living Will No October 29, 2024 1:46am Do you have a Healthcare Power of Core Shaper Top? No October 29, 2024 1:46am Living Will Yes November 21, 2024 5:32am Do you have a Healthcare Power of Core Shaper Top? Yes November 21, 2024 5:32am Name of Medical Power of Core Shaper Top anne Hernandez November 21, 2024 5:32am Do you have a Healthcare Power of Core Shaper Top? No November 28, 2024 5:49pm Do you have a Healthcare Power of Core Shaper Top? No December 26, 2024 10:02am Do you have a Healthcare Power of Core Shaper Top? No December 30, 2024 1:06am Advance Directive Response Recorded Date/ Time Do you have a Healthcare Power of Core Shaper Top? No January 02, 2025 8:14am Living Will No September 05 4:42am Do you have a Healthcare Power of Core Shaper Top? No September 05, 2024 4:42am Living Will No October 29, 2024 1:46am Do you have a Healthcare Power of Core Shaper Top? No October 29, 2024 1:46am Living Will Yes November 21, 2024 5:32am Do you have a Healthcare Power of Core Shaper Top? Yes November 21, 2024 5:32am Name of Medical Power of Core Shaper Top anne Hernandez November 21, 2024 5:32am Do you have a Healthcare Power of Core Shaper Top? No November 28, 2024 5:49pm Do you have a Healthcare Power of Core Shaper Top? No December 26, 2024 10:02am Do you have a Healthcare Power of Core Shaper Top? No December 30, 2024 1:06am Do you have a Healthcare Power of Core Shaper Top? No January 09, 2025 10:10am Advance Directive Response Recorded Date/ Time Do you have a Healthcare Power of Core Shaper Top? No January 02, 2025 8:14am Living Will No October 29, 2024 1:46am Do you have a Healthcare Power of Core Shaper Top? No October 29, 2024 1:46am Living Will Yes November 21, 2024 5:32am Do you have a Healthcare Power of Core Shaper Top? Yes November 21, 2024 5:32am Name of Medical Power of Core Shaper Top anne Hernandez November 21, 2024 5:32am Do you have a Healthcare Power of Core Shaper Top? No November 28, 2024 5:49pm Do you have a Healthcare Power of Core Shaper Top? No December 26, 2024 10:02am Do you have a Healthcare Power of Core Shaper Top? No December 30, 2024 1:06am Do you have a Healthcare Power of Core Shaper Top? No January 09, 2025 3:31pm Advance Directive Response Recorded Date/ Time Do you have a Healthcare Power of Core Shaper Top? No January 02, 2025 8:14am Do you have a Healthcare Power of Core Shaper Top? No January 28, 2025 3:02am Living Will No October 29, 2024 1:46am Do you have a Healthcare Power of Core Shaper Top? No October 29, 2024 1:46am Living Will Yes November 21, 2024 5:32am Do you have a Healthcare Power of Core Shaper Top? Yes November 21, 2024 5:32am Name of Medical Power of Core Shaper Top anne Hernandez November 21, 2024 5:32am Do you have a Healthcare Power of Core Shaper Top? No November 28, 2024 5:49pm Do you have a Healthcare Power of Core Shaper Top? No December 26, 2024 10:02am Do you have a Healthcare Power of Core Shaper Top? No December 30, 2024 1:06am Do you have a Healthcare Power of Core Shaper Top? No January 09, 2025 3:31pm Advance Directive Response Recorded Date/ Time Do you have a Healthcare Power of Core Shaper Top? No January 02, 2025 8:14am Do you have a Healthcare Power of Core Shaper Top? No January 28, 2025 3:02am Living Will No October 29, 2024 1:46am Do you have a Healthcare Power of Core Shaper Top? No October 29, 2024 1:46am Living Will Yes November 21, 2024 5:32am Do you have a Healthcare Power of Core Shaper Top? Yes November 21, 2024 5:32am Name of Medical Power of Core Shaper Top anne Hernandez November 21, 2024 5:32am Do you have a Healthcare Power of Core Shaper Top? No November 28, 2024 5:49pm Do you have a Healthcare Power of Core Shaper Top? No December 26, 2024 10:02am Do you have a Healthcare Power of Core Shaper Top? No December 30, 2024 1:06am Do you have a Healthcare Power of Core Shaper Top? No January 09, 2025 3:31pm Do you have a Healthcare Power of Core Shaper Top? No February 07, 2025 10:20pm Chief Complaint and Reason for Visit Chief [...] 2024 9:36am SEPSIS WITH STAGHORN CALCULI September 5t [...] September 5:04pm SEPSIS WITH STAGHORN CALCULI September 6 h2024 12:41pm SEPSIS WITH STAGHORN CALCULI September 7 h2024 4:50pm SEPSIS WITH STAGHORN CALCULI September 10:36am [...] 2024 1:46am SEPSIS WITH STAGHORN CALCULI September d2024 [...] h2024 4:50pm SEPSIS WITH STAGHORN CALCULI September 10:36am [...] 10:36am SEPSIS WITH STAGHORN CALCULI September 9t h, 2024 10:39am SEPSIS WITH STAGHORN CALCULI September [...] h2024 4:50pm SEPSIS WITH STAGHORN CALCULI September 8 h2024 10:36am SEPSIS WITH STAGHORN CALCULI September [...] 12:43am History of uric acid staghorn calculus [facility] 2024 12:43am Hyponatremia October 29, 2024 12: [...] Umbilical hernia January 09, 2025 2:16p m Chief Complaint Admit Date SEPSIS, UTI, DIARRHEA & ABDOMINAL PAIN M [...] pm SEPSIS January 21, 2025 10:0 4am HEPATIC ENCEPHALOPATHY January 28, 2025 7 :00am confusion January 28, 2025 7:10 am Reason for Visit Admit Date Clostridium difficile colitis October 12:43am History of [...] 09, 2025 2:16p m Spinal stenosis, lumbar region with neur ogenic claudication January 09, 2025 2:16pm Umbilical hernia January 09, 2025 2:16p m Acute UTI January 28, 2025 7:00 am Hepatic encephalopathy January 28, 2025 7 :00am Lactic acidosis January 28, 2025 7:00 am Chief Complaint Admit Date SEPSIS, UTI, DIARRHEA & ABDOMINAL PAIN M [...] pm SEPSIS January 21, 2025 10:0 4am HEPATIC ENCEPHALOPATHY January 28, 2025 7 :00am confusion January 28, 2025 7:10 am HEPATIC ENCEPHALOPATHY January 29, 2025 7 :54am HEPATIC ENCEPHALOPATHY January 30, 2025 7 :28am HEPATIC ENCEPHALOPATHY January 31, 2025 1 2:17pm Reason for Visit Admit Date Clostridium difficile colitis October 12:43am History of [...] m Sepsis January 09, 2025 2:16p m Umbilical hernia January 09, 2025 2:16p m Spinal stenosis, lumbar region with neur ogenic claudication January 09, 2025 2:16pm Abnormal urinalysis January 28, 2025 7:00 am Acute UTI January 28, 2025 7:00 am Hepatic encephalopathy January 28, 2025 7 :00am Lactic acidosis January 28, 2025 7:00 am Umbilical hernia January 28, 2025 7:00 am Chief Complaint Admit Date SEPSIS, UTI, DIARRHEA & ABDOMINAL PAIN [facility] 2024 12:43am SEPSIS, UTI, DIARRHEA & ABDOMINAL PAIN [facility] 2024 7:44am SEPSIS, UTI, DIARRHEA & ABDOMINAL PAIN [facility] 2024 8:20am SEPSIS, UTI, DIARRHEA & ABDOMINAL PAIN [facility] 2024 8:48pm SEPSIS, UTI, DIARRHEA & ABDOMINAL PAIN [facility] 2024 9:52am SEPSIS, UTI, DIARRHEA & ABDOMINAL PAIN [facility] 2024 8:36am SEPSIS, UTI, DIARRHEA & ABDOMINAL PAIN [facility] 2024 11:28am SEPSIS, UTI, DIARRHEA & ABDOMINAL [...] pm SEPSIS January 21, 2025 10:0 4am HEPATIC ENCEPHALOPATHY January 28, 2025 7 :00am confusion January 28, 2025 7:10 am HEPATIC ENCEPHALOPATHY January 29, 2025 7 :54am HEPATIC ENCEPHALOPATHY January 30, 2025 7 :28am HEPATIC ENCEPHALOPATHY January 31, 2025 1 2:17pm abd pain February 07, 2025 7:19p m Reason for Visit Admit Date Clostridium difficile colitis October 12:43am History of [...] thoracic spine, non-traumatic January 09, 2025 2:16pm Leukocytosis January 09, 2025 2:16p m Metabolic acidosis January 09, 2025 2:16p m Sepsis January 09, 2025 2:16p m Lactic acidosis January 09, 2025 2:16p m Spinal stenosis, lumbar region with neur ogenic claudication January 09, 2025 2:16pm Umbilical hernia January 09, 2025 2:16p m Abnormal urinalysis January 28, 2025 7:00 am Acute UTI January 28, 2025 7:00 am Hepatic encephalopathy January 28, 2025 7 :00am Lactic acidosis January 28, 2025 7:00 am Umbilical hernia January 28, 2025 7:00 am Additional Source Comments Reason for Visit (unrecogniz ed section and content) Reason Comments Dental Clearance - Transplant Liver Specialty Diagnoses / Procedures Referred By Ginny t Referred To Contact HOSP INPATIENT Diagnoses 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 Jerald Sherwood MD Primary Care Provider Active Team Status: Inactive [...] 29, 2024 End: November 11, 2024 Dr. Tihago Wray MD Other Provider Active Star t: October 29, 2024 End: November 11, 2024 Dr. Gabbi Hughes MD Other Provider Active Start: October 29, 2024 End: November 11, 2024 Dr. Thai Godfrey MD Other Provider Active Star t: October 29, 2024 End: November 11, 2024 Dr. Juan Daniel Garza MD Other Provider Active Start: 2024 End: November 11, 2024 Dr. Zachariah Glover MD Other Provider Active Sta rt: October 29, 2024 End: November 11, 2024 Dr. Scott Weston DO Other Provider Active Sta rt: October 29, 2024 End: November 11, 2024 Yue Delgadillo DIRECTOR OF ARCHITECTURE, DIRECTOR OF ARCHITECTURE-C Other Provider Active St art: October 29, [...] Provider Active Start: October 30, 2024 Dr. Albre Dunn MD Emergency Provider [...] Active Start: November 06, 2024 Dr. Hill aCro DO Other Provider Active Start: November 06, [...] tart: November 10, 2024 Dr. Hill Caro DO Admit Provider Active Start: November 10, [...] Garza MD Other Provider Active Start: A pri2024 Dr. Zachariah Glover MD Other Provider Active Sta rt: November 10, 2024 Dr. Scott Weston , Other Provider Active Sta rt: November 10, 2024 Yue Delgadillo DIRECTOR OF ARCHITECTURE, DIRECTOR OF ARCHITECTURE-C Other Provider Active St art: November 10, 2024 Team Status: Active Member Role Status Dates No Primary Care Physician Primary Care Provider Active Start: November 21, 2024 Dr. Herberth Carlsno MD Emergency Provider Active Start: November 21, [...] November 25, 2024 Dr. Jae Ash , Admit Provider Active Start: November 23, 2024 End: November 25, 2024 Dr. Jae Ash , DO Other Provider Active Start: November 23, [...] End: December 02, 2024 Dr. Rachel Joiner , Emergency Provider Active Start: November 28, 2024 [...] Start: November 29, 2024 Dr. Rachel Joiner , Emergency Provider Active Start: November 29, 2024 [...] Start: November 30, 2024 Dr. Rachel Joiner , Emergency Provider Active Start: November 30, 2024 [...] Status: Inactive Member Role Status Dates Josy Pastorhof , DIRECTOR OF ARCHITECTURE-C Primary Care Provider Active Start: December 07, 2024 End: December 07, 2024 Josy Pastorhof , DIRECTOR OF ARCHITECTURE-C Attending Provider Active Start: December 07, 2024 End: December 07, 2024 Team Status: Inactive Member Role Status Dates Josy Tannhof , DIRECTOR OF ARCHITECTURE-C Primary Care Provider Active Start: December 15, 2024 End: December 15, 2024 Josy Pastorhof , DIRECTOR OF ARCHITECTURE-C Attending Provider Active Start: December 15, 2024 End: December 15, 2024 Josy Tannhof , DIRECTOR OF ARCHITECTURE-C Referring Provider Active Start: December 15, 2024 End: December 15, 2024 Team Status: Inactive Member Role Status Dates Josy Pastorhof , DIRECTOR OF ARCHITECTURE-C Primary Care Provider Active Start: December 26, 2024 End: December 26, 2024 Dr. Boone Carvajal DO Attending Provider Active Start: December 26, 2024 End: December 26, 2024 Dr. Boone Carvajal DO Emergency Provider Active Start: December 26, 2024 End: December 26, 2024 Team Status: Inactive Member Role Status Dates Josy Tannhof , DIRECTOR OF ARCHITECTURE-C Primary Care Provider Active Start: December 30, 2024 End: December 30, 2024 Dr. Mina Blood DO Attending Provider Active Start: December 30, 2024 End: December 30, 2024 Dr. Mina Blood DO Emergency Provider Active Start: December 30, 2024 End: December 30, 2024 Team Status: Inactive Member Role Status Dates Josy Tannhof , DIRECTOR OF ARCHITECTURE-C Primary Care Provider Active Start: January 02, [...] Member Role Status Dates Josy Elias DIRECTOR OF ARCHITECTURE-C Primary Care Provider Active Start: January 03, [...] NP-C Primary Care Provider Active Start: January 04, [...] NP-C Primary Care Provider Active Start: January 05, [...] NP-C Primary Care Provider Active Start: January 09, [...] Start: January 11, 2025 Dr. Breann Mendez , Emergency Provider Active S tart: January 11, [...] Status: Active Member Role Status Dates Josy Tannhof , DIRECTOR OF ARCHITECTURE-C Primary Care Provider Active Start: January 11, 2025 Dr. Breann Mendez DO Emergency Provider Active S tart: January 11, 2025 Dr. Yaritza Leo , Admit Provider Active Start : January 11, 2025 Dr. Yaritza Leo DO Other Provider Active Start : January 11, 2025 Dr. Cielo Tovar MD Attending Provider Active Start: January 11, 2025 Dr. Cielo Tovar MD Other Provider Active St art: January 11, 2025 Dr. Jefferson Malaev MD Other Provider Active St art: January 11, 2025 Team Status: Active Member Role Status Dates Josy Elias DIRECTOR OF ARCHITECTURE-C Primary Care Provider Active Start: January 11, 2025 Dr. Breann Mendez DO Emergency Provider Active S tart: January 11, 2025 Dr. Yaritza Leo DO Admit Provider Active Start : January 11, 2025 Dr. Yaritza Loe DO Other Provider Active Start : January 11, 2025 Dr. Cielo Tovar MD Other Provider Active St art: January 11, 2025 Dr. Jefferson Malave MD Attending Provider Active Start: January 11, 2025 Dr. Jefferson Malave MD Other Provider Active St art: January 11, 2025 Dr. Anurag Irene MD Referring Provider Active Start: January 11, 2025 Team Status: Active Member Role Status Dates Josy Elias DIRECTOR OF ARCHITECTURE-C Primary Care Provider Active Start: January 12, [...] Member Role Status Dates Josy Elias DIRECTOR OF ARCHITECTURE-C Primary Care Provider Active Start: January 13, [...] Member Role Status Dates Josy Elias DIRECTOR OF ARCHITECTURE-C Primary Care Provider Active Start: January 16, [...] Active Member Role Status Dates Josy Elias NPC Primary Care Provider Active Start: January 17, [...] NP Primary Care Provider Active Start: January 18, [...] NP-C Primary Care Provider Active Start: January 20, 2025 Dr. Breann Mendez DO Emergency Provider Active S tart: January 20, 2025 Dr. Yaritza Leo DO Admit Provider Active Start : January 20, 2025 Dr. Yaritza Leo DO Other Provider Active Start : January 20, 2025 Dr. Jefferson Malave MD Other Provider Active St art: January 20, 2025 Dr. Aleyda Bautista MD Other Provider Active Star t: January 20, 2025 Dr. Anurag Irene MD Attending Provider Active Start: January 20, 2025 Dr. Anurag Irene MD Other Provider Active Sta rt: January 20, 2025 Dr. Cielo Tovar MD Other Provider Active St art: January 20, 2025 Team Status: Active Member Role Status Dates Josy Elias NP-C Primary Care Provider Active Start: January 21, 2025 Dr. Breann Mendez DO Emergency Provider Active S tart: January 21, 2025 Dr. Yaritza Leo DO Admit Provider Active Start : January 21, 2025 Dr. Yaritza Leo DO Other Provider Active Start : January 21, 2025 Dr. Jefferson Malave MD Other Provider Active St art: January 21, 2025 Dr. Aleyda Bautista MD Other Provider Active Star t: January 21, 2025 Dr. Anurag Irene MD Attending Provider Active Start: January 21, 2025 Dr. Anurag Irene MD Other Provider Active Sta rt: January 21, 2025 Dr. Cielo Tovar MD Other Provider Active St art: January 21, 2025 Team Status: Active Member Role Status Dates Dr. Danny Hutton DO Emergency Provider Activ e Start: January 28, 2025 Dr. Jerald Sherwood MD Primary Care Provider Active Start: January 28, 2025 Dr. Boone Izquierdo DO Admit Provider Active Star t: January 28, 2025 Dr. Boone Izquierdo DO Attending Provider Active Start: January 28, 2025 Team Status: Active Member Role Status Dates Dr. Danny Hutton DO Emergency Provider Activ e Start: January 28, 2025 Dr. Jerald Sherwood MD Primary Care Provider Active Start: January 28, 2025 Dr. Boone Izquierdo DO Attending Provider Active Start: January 28, 2025 Team Status: Active Member Role Status [...] Active Sta rt: August 30, 2024 Dr. eJff Cornelius MD Other Provider Active St art: [...] Star t: August 30, 2024 Dr. Mason Dhesi , DO Other Provider Active St art: August [...] rt: August 30, 2024 Dr. Rick Carlin , Other Provider Active S tart: August 30, [...] Active Start: August 30, 2024 Dr. Robin Nolbes MD Other Provider Active St art: August [...] Active Start: August 31, 2024 Dr. Bharathi Trujilol MD Other Provider Active Start : August [...] Start: August 31, 2024 Dr. Rick Carlin , Other Provider Active S tart: August 31, [...] art: August 31, 2024 Dr. Rick Carlin , Other Provider Active S tart: August 31, [...] September 02, 2024 Dr. Luis Carlos Anderson , DO Emergency Provider Active Start: September 02, 2024 Dr. Maria Guadalupe Shore MD Admit Provider Active St art: September 02, 2024 Dr. Maria Guadalupe Shore MD Other Provider Active St art: September 02, 2024 Dr. Rick Carlin , Attending Provider Active Start: September 02, 2024 [...] End: September 15, 2024 Dr. Jae Ash , Other Provider Active Start: September 05, 2024 [...] t: September 06, 2024 Dr. Mason Samano , Other Provider Active St art: September 06, 2024 Dr. Anel Casey MD Other Provider Active Start: September 06, 2024 Dr. Robin Nobles MD Other Provider Active St art: September 06, 2024 Dr. Kenneth Noland , Other Provider Active Start: September 06, 2024 [...] Start: September 12, 2024 Dr. Jae Ash DO Attending Provider Active Start: September 12, 2024 Dr. Jae Ash DO Other Provider Active Start: September 12, 2024 Dr. Anurag Irene MD Other Provider Active Sta rt: September 12, 2024 Team Status: Active Member Role Status Dates No Primary Care Physician Primary Care Provider Active Start: September 13, 2024 Dr. Rachel Joiner DO Emergency Provider Active Start: September 13, 2024 Dr. Hill Caro DO Admit Provider Active Start: September 13, [...] Start: September 13, 2024 Dr. Boone Izquierdo , DO Other Provider Active Star t: September 13, 2024 Dr. Jae Ash , DO Other Provider Active Start: September 13, 2024 Team Status: Active Member Role Status Dates No Primary Care Physician Primary Care Provider Active Start: September 14, 2024 Dr. Rachel Joiner , DO Emergency Provider Active Start: September 14, 2024 [...] Provider Active Start: 2024 Jasmine Morocho DIRECTOR OF ARCHITECTURE, DIRECTOR OF ARCHITECTURE-C Attending Provider Active Start: September 29, 2024 Component Assembler Relationship Specialty Start Date End Date Maurice Fitch MD [address] [place] [address] PCP - General Internal Medicine 09/21/24 Team [...] NP-C Primary Care Provider Active Start: December 26, 2024 End: December 26, 2024 Dr. Boone Carvajal DO Emergency Provider Active Start: December 26, 2024 End: December 26, 2024 Team Status: Inactive Member Role Status Dates Josy lEias NP-C Primary Care Provider Active Start: December 30, 2024 End: December 30, 2024 Dr. Mina Blood DO Emergency Provider Active Start: December 30, 2024 End: December 30, 2024 Team Status: Active Member Role Status Dates Josy Elias NP-C Primary Care Provider Active Start: January 02, 2025 Dr. Roddy Reeves DO Emergency Provider Active Start: January 02, 2025 Dr. Buster Fuchs MD Admit Provider Active Start: January 02, 2025 Dr. Buster Fuchs MD Attending Provider Active Start: January 02, 2025 Dr. Buster Fuchs MD Other Provider Active Start: January 02, 2025 Team Status: Active Member Role Status Dates Josy Elias DIRECTOR OF ARCHITECTURE-C Primary Care Provider Active Start: January 09, 2025 Dr. Breann Mendez , Emergency Provider Active S tart: January 09, 2025 Dr. Yaritza Leo DO Admit Provider Active Start : January 09, 2025 Dr. Yaritza Leo DO Attending Provider Active S tart: January 09, 2025 Team Status: Active Member Role Status Dates Josy Elias DIRECTOR OF ARCHITECTURE-C Primary Care Provider Active Start: January 11, [...] January 11, 2025 Team Status: Active Member Role/Relationship Status Dates Dr. Jerald Sherwood MD Primary Care Provider Active Team Status: Inactive Member Role/Relationship Status Dates No Primary Care Physician Primary [...] Daniel Garza MD Other Provider Active Start: 2024 End: November 11, 2024 Dr. Zachariah Glover MD Other Provider Active Sta rt: October 29, 2024 End: November 11, 2024 Dr. Scott Weston , Other Provider Active Sta rt: October 29, 2024 End: November 11, 2024 Yue Delgadillo DIRECTOR OF ARCHITECTURE, DIRECTOR OF ARCHITECTURE-C Other Provider Active St art: October 29, [...] October 29, 2024 Team Status: Active Member Role/Relationship Status Dates No Primary Care Physician Primary [...] October 29, 2024 Team Status: Active Member Role/Relationship Status Dates No Primary Care Physician Primary [...] October 30, 2024 Team Status: Active Member Role/Relationship Status Dates No Primary Care Physician Primary [...] St art: October 30, 2024 Dr. Kenneth Nloand DO Other Provider Active Start: October 30, [...] October 30, 2024 Team Status: Active Member Role/Relationship Status Dates No Primary Care Physician Primary [...] October 31, 2024 Team Status: Active Member Role/Relationship Status Dates No Primary Care Physician Primary [...] November 01, 2024 Team Status: Active Member Role/Relationship Status Dates No Primary Care Physician Primary [...] November 01, 2024 Team Status: Active Member Role/Relationship Status Dates No Primary Care Physician Primary [...] November 02, 2024 Team Status: Active Member Role/Relationship Status Dates No Primary Care Physician Primary Care Provider Active Start: November 03, 2024 Dr. Alebr Dunn MD Emergency Provider Active S tart: [...] November 03, 2024 Team Status: Active Member Role/Relationship Status Dates No Primary Care Physician Primary [...] November 04, 2024 Team Status: Active Member Role/Relationship Status Dates No Primary Care Physician Primary [...] November 05, 2024 Team Status: Active Member Role/Relationship Status Dates No Primary Care Physician Primary [...] November 06, 2024 Team Status: Active Member Role/Relationship Status Dates No Primary Care Physician Primary [...] November 07, 2024 Team Status: Active Member Role/Relationship Status Dates No Primary Care Physician Primary [...] November 08, 2024 Team Status: Active Member Role/Relationship Status Dates No Primary Care Physician Primary [...] November 09, 2024 Team Status: Active Member Role/Relationship Status Dates No Primary Care Physician Primary Care Provider Active Start: November 10, 2024 Dr. Alber Dunn MD Emergency Provider Active S tart: November 10, 2024 Dr. Hill Caro DO Admit Provider Active Start: November 10, 2024 Dr. Hill Crao DO Other Provider Active Start: November 10, [...] rt: November 10, 2024 Dr. Scott Weston , Other Provider Active Sta rt: November 10, 2024 Yue Delgadillo DIRECTOR OF ARCHITECTURE, DIRECTOR OF ARCHITECTURE-C Other Provider Active St art: November 10, 2024 Team Status: Active Member Role/Relationship Status Dates No Primary Care Physician Primary Care Provider Active Start: November 21, 2024 Dr. Herberth Carlson MD Emergency Provider Active Start: November 21, 2024 Dr. Jae Ash DO Admit Provider Active Start: November 21, 2024 Dr. Jae Ash DO Attending Provider Active Start: November 21, 2024 Dr. Jae Ash DO Other Provider Active Start: November 21, 2024 Team Status: Active Member Role/Relationship Status Dates No Primary Care Physician Primary [...] November 22, 2024 Team Status: Active Member Role/Relationship Status Dates No Primary Care Physician Primary [...] November 23, 2024 Team Status: Inactive Member Role/Relationship Status Dates No Primary Care Physician Primary [...] 23, 2024 End: November 25, 2024 Dr. Aunrag Irene MD Attending Provider Active Start: November 23, 2024 End: November 25, 2024 Team Status: Active Member Role/Relationship Status Dates No Primary Care Physician Primary [...] November 24, 2024 Team Status: Active Member Role/Relationship Status Dates No Primary Care Physician Primary [...] November 25, 2024 Team Status: Inactive Member Role/Relationship Status Dates No Primary Care Physician Primary [...] December 02, 2024 Team Status: Active Member Role/Relationship Status Dates No Primary Care Physician Primary Care Provider Active Start: November 29, 2024 Dr. Rachel Godman , DO Emergency Provider Active Start: November 29, 2024 Dr. Kathie Lemos MD Admit Provider Active Star t: November 29, 2024 Dr. Kathie Lemos MD Other Provider Active Star t: November 29, 2024 Dr. Hill Acuña MD Attending Provider Active Start: November 29, 2024 Dr. Hill Acuña MD Other Provider Active Star t: November 29, 2024 Team Status: Active Member Role/Relationship Status Dates No Primary Care Physician Primary Care Provider Active Start: November 30, 2024 Dr. Rachel Joiner , Emergency Provider Active Start: November 30, 2024 Dr. Kathie Lemos MD Admit Provider Active Star t: November 30, 2024 Dr. Katihe Lemos MD Other Provider Active Star t: November 30, 2024 Dr. Hill Acuña MD Attending Provider Active Start: November 30, 2024 Dr. Hill Acuña MD Other Provider Active Star t: November 30, 2024 Team Status: Active Member Role/Relationship Status Dates No Primary Care Physician Primary [...] December 01, 2024 Team Status: Active Member Role/Relationship Status Dates No Primary Care Physician Primary [...] December 02, 2024 Team Status: Inactive Member Role/Relationship Status Dates Josy Tannhof , DIRECTOR OF ARCHITECTURE-C Primary Care Provider Active Start: December 07, 2024 End: December 07, 2024 Josydominique Baumannhof , DIRECTOR OF ARCHITECTURE-C Attending Provider Active Start: December 07, 2024 End: December 07, 2024 Team Status: Inactive Member Role/Relationship Status Dates Josydominique Baumannhof , DIRECTOR OF ARCHITECTURE-C Primary Care Provider Active Start: December 15, 2024 End: December 15, 2024 Josydominique Baumannhof , DIRECTOR OF ARCHITECTURE-C Attending Provider Active Start: December 15, 2024 End: December 15, 2024 Josy Pastorhof , DIRECTOR OF ARCHITECTURE-C Referring Provider Active Start: December 15, 2024 End: December 15, 2024 Team Status: Inactive Member Role/Relationship Status Dates Josydominique Baumannhof , DIRECTOR OF ARCHITECTURE-C Primary Care Provider Active Start: December 26, 2024 End: December 26, 2024 Dr. Boone Carvajal DO Attending Provider Active Start: December 26, 2024 End: December 26, 2024 Dr. Boone Carvajal DO Emergency Provider Active Start: December 26, 2024 End: December 26, 2024 Team Status: Inactive Member Role/Relationship Status Dates Josydominique Baumannhof , DIRECTOR OF ARCHITECTURE-C Primary Care Provider Active Start: December 30, 2024 End: December 30, 2024 Dr. Mina Blood DO Attending Provider Active Start: December 30, 2024 End: December 30, 2024 Dr. Mina Blood DO Emergency Provider Active Start: December 30, 2024 End: December 30, 2024 Team Status: Inactive Member Role/Relationship Status Dates Josydominique Baumannhof , DIRECTOR OF ARCHITECTURE-C Primary Care Provider Active Start: January 02, [...] January 05, 2025 Team Status: Active Member Role/Relationship Status Dates Josydominique Baumannhof , DIRECTOR OF ARCHITECTURE-C Primary Care Provider Active Start: January 03, [...] January 03, 2025 Team Status: Active Member Role/Relationship Status Dates Josy Elias NP-C Primary Care Provider Active Start: January 04, 2025 Dr. Roddy Reeves DO Emergency Provider Active Start: January 04, 2025 Dr. Buster Fcuhs MD Admit Provider Active Start: January 04, 2025 Dr. Buster Fuchs MD Other Provider Active Start: January 04, 2025 Dr. Hill Acuña MD Attending Provider Active Start: January 04, 2025 Dr. Hill Acuña MD Other Provider Active Star t: January 04, 2025 Team Status: Active Member Role/Relationship Status Dates Josy Elias NP-C Primary Care Provider Active Start: January 05, [...] January 05, 2025 Team Status: Inactive Member Role/Relationship Status Dates Josy Elias NP-C Primary Care Provider Active Start: January 09, 2025 End: January 21, 2025 Dr. Breann Mendez , Emergency Provider Active S tart: January 09, 2025 End: January 21, 2025 Dr. Yaritza Leo , Admit Provider Active Start : January 09, 2025 End: January 21, 2025 Dr. Yaritza Leo DO Other Provider Active Start : January 09, 2025 End: January 21, 2025 Dr. Jefferson Malave MD Other Provider Active St art: January 09, 2025 End: January 21, 2025 Dr. Aleyda Batuista MD Other Provider Active Star t: January 09, 2025 End: January 21, 2025 Dr. Anurag Irene MD Attending Provider Active Start: January 09, 2025 End: January 21, 2025 Dr. Cielo Tovar MD Other Provider Active St art: January 09, 2025 End: January 21, 2025 Team Status: Active Member Role/Relationship Status Dates Josy Elias DIRECTOR OF ARCHITECTURE-C Primary Care Provider Active Start: January 10, 2025 Dr. Breann Mendez , Emergency Provider Active S tart: January 10, 2025 Dr. Yaritza Leo DO Admit Provider Active Start : January 10, 2025 Dr. Yaritza Leo DO Other Provider Active Start : January 10, 2025 Dr. John Palu Masterson MD Other Provider Active Start: January [...] January 10, 2025 Team Status: Active Member Role/Relationship Status Dates Josy Elias NP-C Primary Care Provider Active Start: January 10, [...] January 10, 2025 Team Status: Active Member Role/Relationship Status Dates Josy Elias NP-C Primary Care Provider Active Start: January 11, [...] art: January 11, 2025 Dr. Bola Meraz DO Attending Provider Active S tart: January 11, 2025 Team Status: Active Member Role/Relationship Status Dates Josy Elias NP-C Primary Care Provider Active Start: January 11, [...] January 11, 2025 Team Status: Active Member Role/Relationship Status Dates Josy Elias NP-C Primary Care Provider Active Start: January 11, 2025 Dr. Breann Mendez DO Emergency Provider Active S tart: January 11, 2025 Dr. Yaritza Leo DO Admit Provider Active Start : January 11, 2025 Dr. Yaritza Leo DO Other Provider Active Start : January 11, 2025 Dr. Cielo Tvoar MD Other Provider Active St art: January 11, 2025 Dr. Jefferson Malave MD Attending Provider Active Start: January 11, 2025 Dr. Jefferson Malave MD Other Provider Active St art: January 11, 2025 Dr. Anurag Irene MD Referring Provider Active Start: January 11, 2025 Team Status: Active Member Role/Relationship Status Dates Josy Elias NP-C Primary Care Provider Active Start: January 12, [...] January 12, 2025 Team Status: Active Member Role/Relationship Status Dates Josy Elias NP-C Primary Care Provider Active Start: January 13, [...] January 13, 2025 Team Status: Active Member Role/Relationship Status Dates Josy Elias DIRECTOR OF ARCHITECTURE-C Primary Care Provider Active Start: January 14, [...] January 14, 2025 Team Status: Active Member Role/Relationship Status Dates Josy Elias NP-C Primary Care [...] January 15, 2025 Team Status: Active Member Role/Relationship Status Dates Josy Elias DIRECTOR OF ARCHITECTURE-C Primary Care Provider Active Start: January 16, [...] January 16, 2025 Team Status: Active Member Role/Relationship Status Dates Josy Elias NP-C Primary Care [...] January 17, 2025 Team Status: Active Member Role/Relationship Status Dates Josy Elias NP-C Primary Care [...] January 18, 2025 Team Status: Active Member Role/Relationship Status Dates Josy Elias NP-C Primary Care Provider Active Start: January 19, 2025 Dr. Breann Mendez DO Emergency Provider Active S tart: January 19, 2025 Dr. Yaritza Leo , Admit Provider Active Start : January 19, 2025 Dr. Yaritza Leo DO Other Provider Active Start : January 19, 2025 Dr. Jefferson Malave MD Other Provider Active St art: January 19, 2025 Dr. Aleyda Bautista MD Other Provider Active Star t: January 19, 2025 Dr. Anurag Irnee MD Attending Provider Active Start: January 19, 2025 Dr. Anruag Irene MD Other Provider Active Sta rt: January 19, 2025 Dr. Cielo Tovar MD Other Provider Active St art: January 19, 2025 Team Status: Active Member Role/Relationship Status Dates Josy Elias NP-C Primary Care Provider Active Start: January 20, 2025 Dr. Breann Mendez DO Emergency Provider Active S tart: January 20, 2025 Dr. Yaritza Leo DO Admit Provider Active Start : January 20, 2025 Dr. Yaritza Leo DO Other Provider Active Start : January 20, 2025 Dr. Jefferson Malave MD Other Provider Active St art: January 20, 2025 Dr. Aleyda Bautista MD Other Provider Active Star t: January 20, 2025 Dr. Anurag Irene MD Attending Provider Active Start: January 20, 2025 Dr. Anurag Irene MD Other Provider Active Sta rt: January 20, 2025 Dr. Cielo Tovar MD Other Provider Active St art: January 20, 2025 Team Status: Active Member Role/Relationship Status Dates BRITTANY PenaC Primary Care Provider Active Start: January 21, 2025 Dr. Breann Mendez DO Emergency Provider Active S tart: January 21, 2025 Dr. Yaritza Leo DO Admit Provider Active Start : January 21, 2025 Dr. Yaritza Leo DO Other Provider Active Start : January 21, 2025 Dr. Jefferson Malave MD Other Provider Active St art: January 21, 2025 Dr. Aleyda Bautista MD Other Provider Active Star t: January 21, 2025 Dr. Anurag Irene MD Attending Provider Active Start: January 21, 2025 Dr. Anurag Irene MD Other Provider Active Sta rt: January 21, 2025 Dr. Cielo Tovar MD Other Provider Active St art: January 21, 2025 Team Status: Inactive Member Role/Relationship Status Dates Dr. Danny Hutton DO Emergency Provider Activ e Start: January 28, 2025 End: January 31, 2025 Dr. Jerald Sherwood MD Primary Care Provider Active Start: January 28, 2025 End: January 31, 2025 Dr. Boone Izquierdo DO Admit Provider Active Star t: January 28, 2025 End: January 31, 2025 Dr. Boone Izquierdo DO Other Provider Active Star t: January 28, 2025 End: January 31, 2025 Dr. Yaritza Leo , Attending Provider Active S tart: January 28, 2025 End: January 31, 2025 Team Status: Active Member Role/Relationship Status Dates Dr. Danny Hutton DO Emergency Provider Activ e Start: January 28, 2025 Dr. Jerald Sherwood MD Primary Care Provider Active Start: January 28, 2025 Dr. Boone Izquierdo DO Attending Provider Active Start: January 28, 2025 Team Status: Active Member Role/Relationship Status Dates Dr. Danny Hutton DO Emergency Provider Activ e Start: January 29, 2025 Dr. Jerald Sherwood MD Primary Care Provider Active Start: January 29, 2025 Dr. Boone Izqiuerdo DO Admit Provider Active Star t: January 29, 2025 Dr. Boone Izquierdo DO Other Provider Active Star t: January 29, 2025 Dr. Yaritza Leo , Attending Provider Active S tart: January 29, 2025 Dr. Yaritza Leo , Other Provider Active Start : January 29, 2025 Team Status: Active Member Role/Relationship Status Dates Dr. Danny Hutton DO Emergency Provider Activ e Start: January 30, 2025 Dr. Jerald Sherwood MD Primary Care Provider Active Start: January 30, 2025 Dr. Boone Izquierdo DO Admit Provider Active Star t: January 30, 2025 Dr. Boone Izquierdo DO Other Provider Active Star t: January 30, 2025 Dr. Yaritza Leo DO Attending Provider Active S tart: January 30, 2025 Dr. Yaritza Leo DO Other Provider Active Start : January 30, 2025 Team Status: Active Member Role/Relationship Status Dates Dr. Danny Hutton DO Emergency Provider Activ e Start: January 31, 2025 Dr. Jerald Sherwood MD Primary Care Provider Active Start: January 31, 2025 Dr. Boone Izquierdo DO Admit Provider Active Star t: January 31, 2025 Dr. Boone Izquierdo DO Other Provider Active Star t: January 31, 2025 Dr. Yaritza Leo DO Attending Provider Active S tart: January 31, 2025 Dr. Yaritza Leo DO Other Provider Active Start : January 31, 2025 Team Status: Inactive Member Role/Relationship Status Dates Dr. Jerald Sherwood MD Primary Care Provider Active Start: February 07, 2025 End: February 08, 2025 Dr. Mina Blood , Emergency Provider Active Start: February 07, 2025 End: February 08, 2025 (unrecognized sect ion and content) No Status Records FoundNo Status Records FoundNo Status Records Found INFORMATION SOURCE (unrecogn ized section and content) DATE CREATED AUTHOR 10/10/2024 [facility] DATE CREATED AUTHOR AUTHOR'S ORGANIZ ATION 12/13/2024 [facility] DATE CREATED AUTHOR AUTHOR'S ORGANIZ ATION 02/11/2025 [facility] Source Comments (unrecognize d section and content) In the event this informatio n is protected by the Federal Confidentiality of Alcohol and Drug Abuse Patient Records regulations: The Federal rules restrict any use of the information to criminally investigate or prosecute any alcohol or drug abuse patient.[facility] the event this information is protected by the Federal Confidentiality of Alcohol and Drug Abuse Patient Records regulations: The Federal rules restrict any use of the information to criminally investigate or prosecute any alcohol or drug abuse patient.[facility] the event this information is protected by the Federal Confidentiality of Alcohol and Drug Abuse Patient Records regulations: The Federal rules restrict any use of the information to criminally investigate or prosecute any alcohol or drug abuse patient.[facility] the event this information is protected by the Federal Confidentiality of Alcohol and Drug Abuse Patient Records regulations: The Federal rules restrict any use of the information to criminally investigate or prosecute any alcohol or drug abuse patient.[facility] Center[facility] the event this information is protected by the Federal Confidentiality of Alcohol and Drug Abuse Patient Records regulations: The Federal rules restrict any use of the information to criminally investigate or prosecute any alcohol or drug abuse patient.[facility] Center[facility] the event this information is protected by the Federal Confidentiality of Alcohol and Drug Abuse Patient Records regulations: The Federal rules restrict any use of the information to criminally investigate or prosecute any alcohol or drug abuse patient.[facility] the event this information is protected by the Federal Confidentiality of Alcohol and Drug Abuse Patient Records regulations: The Federal rules restrict any use of the information to criminally investigate or prosecute any alcohol or drug abuse patient.[facility] Center[facility] the event this information is protected by the Federal Confidentiality of Alcohol and Drug Abuse Patient Records regulations: The Federal rules restrict any use of the information to criminally investigate or prosecute any alcohol or drug abuse patient.[facility] Center[facility] the event this information is protected by the Federal Confidentiality of Alcohol and Drug Abuse Patient Records regulations: The Federal rules restrict any use of the information to criminally investigate or prosecute any alcohol or drug abuse patient.[facility] Center[facility] the event this information is protected by the Federal Confidentiality of Alcohol and Drug Abuse Patient Records regulations: The Federal rules restrict any use of the information to criminally investigate or prosecute any alcohol or drug abuse patient.[facility] CenterIn the event this information is protected by the Federal Confidentiality of Alcohol and Drug Abuse Patient Records regulations: The Federal rules restrict any use of the information to criminally investigate or prosecute any alcohol or drug abuse patient.[facility] FOR RECORDS PERTAINING TO PATIENTS WHO ARE [...] BE BASED ON THE PRIMARY CLINICAL RECORDS. [facility]. provides no warranty or guarantee of the accuracy or completeness of information in this document.
[2025-02-13 18:30] VITALS: BP 94/58; PULSE 60; RESP 16; O2SAT 100
[2025-02-13 18:40] LABS: Hematocrit 24.1 % (40-54); Hemoglobin 8.3 g/dL (13.0-16.5); Immature Granulocytes Count 0.040 X10^3/uL (0.0-0.0); Mean Corp Hgb Conc 34.4 g/dL (32-36); Mean Corpuscular Volume 84.9 fL (80-94); NRBC Flagged by Analyzer 0 % (0-5); POSITIVE COUNT YES; RBC Distribution Width CV 17.4 % (11.6-14.6); RBC Distribution Width SD 52.3 fl (35.1-43.9); Red Blood Count 2.84 M/mm3 (4.6-6.2); White Blood Count 8.6 K/mm3 (4.4-11.0)
[2025-02-13 18:42] LABS: Differential Indicated SCAN CRITERIA MET
[2025-02-13 19:22] LABS: Lipase 60 U/L (13-75)
[2025-02-13 19:29] LABS: Differential Comment SCANNED; Mean Platelet Vol. 10.8 fl (6.2-12.0); Platelet Count 83 K/mm3 (150-450)
[2025-02-13 19:50] LABS: AST(SGOT) 120 U/L (<=37); Alanine Aminotransfer ALT/SGPT 53 U/L (<=46); Albumin, Serum 2.2 g/dL (3.5-5.0); Alkaline Phosphatase 335 U/L (40-129); Anion Gap 14 (5-15); BUN 25 mg/dL (4-19); BUN/Creat Ratio 14.3 RATIO (10-20); Calcium,Total 8.3 mg/dL (7.6-11.0); Carbon Dioxide 18.4 mmol/L (21.0-32.0); Chloride 102 mmol/L (98-108); Estimated Creatinine Clearance 53.12 ml/min (50-250); Globulin 3.7 g/dL (2.2-4.2); Glucose 169 mg/dL (70-99); Potassium 3.4 mmol/L (3.3-5.1)
[2025-02-13 20:00] VITALS: BP 94/57; PULSE 61; RESP 18; O2SAT 100
[2025-02-13 21:17] VITALS: BP 97/75; PULSE 59; RESP 16; TEMP 37.1; O2SAT 100
== END 2025-02-13 21:25 | disposition home or self-care (01) ==
PROVIDERS: Emergency Provider Emergency Medicine; PCP Family Medicine; Visit Provider Emergency Medicine
DX: K74.60 Unspecified cirrhosis of liver (principal); K76.6 Portal hypertension; E11.9 Type 2 diabetes mellitus without complications; R10.9 Unspecified abdominal pain; G89.29 Other chronic pain; I10 Essential (primary) hypertension; R18.8 Other ascites; E78.5 Hyperlipidemia, unspecified; K43.9 Ventral hernia without obstruction or gangrene; M54.9 Dorsalgia, unspecified; Z79.84 Long term (current) use of oral hypoglycemic drugs; Z79.899 Other long term (current) drug therapy; Z87.891 Personal history of nicotine dependence
CPT/HCPCS: 74177; 80053; 83690; 85025; 96374; 96375; 99285; A4216; J2405; Q9967

== ENCOUNTER 2025-02-16 17:17 | Observation (INO) | payer MEDICAID, SELFPAY ==
[2025-02-16 17:20] VITALS: BP 101/59; PULSE 72; RESP 16; TEMP 36.6; O2SAT 97
--- NOTE | 2025-02-16 18:05 | EDS_ITS ---
HPI History of Present Illness Chief Complaint: Abn Labs Informant: patient and other (Patient's ex-) Narrative Narrative: 59-year-old male history of diabetes liver cirrhosis with ascites and chronic anemia. States he was sent in today by his primary care physician due to abnormal labs. Patient is not really sure why. I called and spoke to his ex- who he lives with and she was not sure why it was sent in either. She states he is recently had some nausea and vomiting. Prior similar symptoms: Yes Recent Illness[facility] Medical History VRE (vancomycin resistant enterococcus) culture positive Spinal stenosis, lumbar region with neurogenic claudication Hepatic encephalopathy Umbilical hernia Chronic hyponatremia Weakness Diarrhea Sepsis Acidosis, lactic Acute hypotension Acute UTI Chronic hypotension Obesity (BMI 30-39.9) Chronic back pain ISABEL (acute kidney injury) Hypotension Hyperbilirubinemia Liver cirrhosis secondary to HARRIS (nonalcoholic steatohepatitis) HLD (hyperlipidemia) HTN (hypertension) Thrombocytopenia Chronic anemia Former tobacco use Diabetes mellitus, type 2 ABBY on CPAP Back pain Home Medications ?Medication ?Instructions ?Recorded ?Last Taken ?Type rifaximin 550 mg tablet (Xifaxan) 550 mg PO BID diarrh ea #60 tabs 09/02/24 11/28/24 Rx acetaminophen 500 mg tablet 1,000 mg PO Q8 PRN fever o r pain 10/28/24 Unknown History calcium 500 mg (as 1 tab PO DAILY supplement 11/28/24 History carbonate)-vitamin D3 5 mcg (200 unit) tablet (Oyster Shell Calcium-Vitamin D3) folic acid 1 mg tablet 1 mg PO DAILY supplement 11/28/24 History atorvastatin 40 mg tablet 40 mg PO DAILY cholesterol 0 11/21/24 11/27/24 History furosemide 20 mg tablet 40 mg PO DAILY diuretic 11/0311/28/24 History magnesium oxide 400 mg (241.3 mg 400 mg PO DAILY suppl ement 11/21/24 11/28/24 History magnesium) tablet metformin 500 mg tablet,extended 500 mg PO QPM diabete s 11/21/24 11/27/24 History release 24 hr sodium bicarbonate 650 mg tablet 650 mg PO BID supplem ent 11/21/24 11/28/24 History thiamine HCl (vitamin B1) 100 mg 100 mg PO DAILY suppl ement 11/21/24 Unknown History tablet zinc sulfate 50 mg zinc (220 mg) 50 mg PO DAILY supple ment 11/21/24 11/28/24 History tablet ascorbic acid (vitamin C) 500 mg 500 mg PO BID vitamin #60 tabs 11/25/24 11/28/24 Rx tablet midodrine 10 mg tablet 10 mg PO TID blood pressure 1 11/25/24 Unknown Rx month #90 tabs cyclobenzaprine 10 mg tablet 10 mg PO QHS muscle relax er 01/02/25 Unknown History Held on 01/31/25. Instructions: Until you have completed your antibiotic then okay to restart ferrous sulfate 325 mg (65 mg 325 mg PO QODAY suppleme nt 01/02/25 Unknown History iron) tablet (FeroSul) insulin lispro 100 unit/mL 10 unit (0.1 mL) subcut TID AC #0 mL 01/05/25 Unknown Rx subcutaneous pen (Humalog KwikPen (U-100) Insulin) spironolactone 100 mg tablet 100 mg PO DAILY 1 month # 30 tabs 01/21/25 Unknown Rx spironolactone 25 mg tablet 25 mg PO DAILY 30 days #30 tabs 01/21/25 Unknown Rx omeprazole 20 mg capsule,delayed 20 mg PO DAILY Unknown History release oxycodone 5 mg tablet 2.5 mg PO Q8H PRN Pain Score 4-10 01/28/25 Unknown History Or Pre Pt/Ot insulin glargine-yfgn 100 unit/mL 20 unit (0.2 mL) sub cut QHS #15 mL 01/31/25 Unknown Rx (3 mL) subcutaneous pen lactulose 10 gram/15 mL oral 10 g (15 mL) PO TID #3,00 0 mL 01/31/25 Unknown Rx solution linezolid 600 mg tablet 600 mg PO BID #5 tabs Unknown Rx pen needle, diabetic 31 gauge x #1,200 ea 01/31/25 Unk nown Rx 12/17 (Pen Needle) oxycodone 5 mg tablet 5 mg PO Q6H PRN pain 3 days #12 02/08/25 Unknown Rx tabs Allergy/AdvReac Type Severity Reaction Status Date / Time No Known Allergies Allergy Verified 02/16/25 17:20 Family History Mother Heart disease Hypertension CAD (coronary artery disease) Myocardial infarction Father Hypertension Heart disease Heart failure Surgical History History of tonsillectomy and adenoidectomy Social History household members: significant other Smoking Status: Former smoker how long ago did patient quit smoking: Quit ~ 3-4 months prior (fall 2023), smoked 1.5 ppd since teen until quit. alcohol intake: never substance use type: does not use EXAM Physical Exam Const Vital Signs: 02/16/25 17:20 Temperature 98 F Temperature Source Temporal Pulse Rate 72 Respiratory Rate 16 Blood Pressure 101/59 L Blood Pressure Mean 73 Pulse Ox 97 Oxygen Delivery Method Room Air Discharge Plan Triage Chief Complaint: Abn Labs ED Provider: Alber Dunn Dx/Rx/DC Orders Prescriptions: No Action Xifaxan 550 mg Tablet 550 mg PO BID Qty: 60 0RF cyclobenzaprine 10 mg tablet 10 mg PO QHS ferrous sulfate [FeroSul] 325 mg (65 mg iron) tablet 325 mg PO QODAY insulin lispro [Humalog KwikPen Insulin] 100 unit/mL Insulin Pen 10 unit subcut TIDAC Qty: 0 0RF omeprazole 20 mg capsule,delayed release(DR/EC) 20 mg PO DAILY oxycodone 5 mg Tablet 2.5 mg PO Q8H PRN (Reason: Pain Score 4-10 Or Pre Pt/Ot) lactulose 10 gram/15 mL Solution 10 g PO TID Qty: 3000 0RF Rx Instructions: Goal is 2-3 bowel movements daily if you are having more than this with this amount of lactulose decrease dose to twice daily from 3 times daily linezolid 600 mg Tablet 600 mg PO BID Qty: 5 0RF insulin glargine-yfgn 100 unit/mL (3 mL) Insulin Pen 20 unit subcut QHS Qty: 15 1RF (DME) pen needle, diabetic [Pen Needle] 31 gauge x 5/16 needle See Rx Instructions .Route Qty: 1200 0RF Rx Instructions: As directed folic acid 1 mg tablet 1 mg PO DAILY calcium carbonate-vitamin D3 [Oyster Shell Calcium-Vit D3] 500 mg-5 mcg (200 unit) tablet 1 tab PO DAILY acetaminophen 500 mg Tablet 1,000 mg PO Q8 PRN (Reason: fever or pain) atorvastatin 40 mg tablet 40 mg PO DAILY furosemide 20 mg tablet 40 mg PO DAILY magnesium oxide 400 mg (241.3 mg magnesium) tablet 400 mg PO DAILY sodium bicarbonate 650 mg tablet 650 mg PO BID metformin 500 mg tablet extended release 24 hr 500 mg PO QPM thiamine HCl (vitamin B1) 100 mg tablet 100 mg PO DAILY zinc sulfate 50 mg zinc (220 mg) tablet 50 mg PO DAILY midodrine 10 mg tablet 10 mg PO TID 30 Days Qty: 90 0RF Rx Instructions: do not give last dose of day after 6PM or within 4 hrs of bedtime ascorbic acid (vitamin C) 500 mg tablet 500 mg PO BID Qty: 60 2RF spironolactone 25 mg Tablet 25 mg PO DAILY 30 Days Qty: 30 2RF Rx Instructions: total 125 mg daily Hold for serum potassium more than 5.0 spironolactone 100 mg tablet 100 mg PO DAILY 30 Days Qty: 30 2RF Rx Instructions: Hold for serum potassium more than 5.0. Total 125 mg daily. oxycodone 5 mg tablet 5 mg PO Q6H PRN (Reason: pain) 3 Days Qty: 12 0RF Primary Care Provider: Jerald Sherwood Referrals: Jerald Sherwood MD [Primary Care Provider] - Print Language: Zimbabwean
--- NOTE | 2025-02-16 18:05 | EX.ED.DYSGE1 ---
HPI History of Present Illness Chief Complaint: Abn Labs Informant: patient and other (Patient's ex-) Narrative Narrative: 59-year-old male history of diabetes liver cirrhosis with ascites and chronic anemia. States he was sent in today by his primary care physician due to abnormal labs. Patient is not really sure why. I called and spoke to his ex- who he lives with and she was not sure why it was sent in either. She states he is recently had some nausea and vomiting. Prior similar symptoms: Yes Recent Illness[facility] Medical History VRE (vancomycin resistant enterococcus) culture positive Spinal stenosis, lumbar region with neurogenic claudication Hepatic encephalopathy Umbilical hernia Chronic hyponatremia Weakness Diarrhea Sepsis Acidosis, lactic Acute hypotension Acute UTI Chronic hypotension Obesity (BMI 30-39.9) Chronic back pain ISABEL (acute kidney injury) Hypotension Hyperbilirubinemia Liver cirrhosis secondary to HARRIS (nonalcoholic steatohepatitis) HLD (hyperlipidemia) HTN (hypertension) Thrombocytopenia Chronic anemia Former tobacco use Diabetes mellitus, type 2 ABBY on CPAP Back pain Home Medications ?Medication ?Instructions ?Recorded ?Last Taken ?Type rifaximin 550 mg tablet (Xifaxan) 550 mg PO BID diarrhea #60 tabs 09/02/24 11/28/24 Rx acetaminophen 500 mg tablet 1,000 mg PO Q8 PRN fever or pain 10/28/24 Unknown History calcium 500 mg (as 1 tab PO DAILY supplement 10/28/24 11/28/24 History carbonate)-vitamin D3 5 mcg (200 unit) tablet (Oyster Shell Calcium-Vitamin D3) folic acid 1 mg tablet 1 mg PO DAILY supplement 10/28/24 11/28/24 History atorvastatin 40 mg tablet 40 mg PO DAILY cholesterol 11/21/24 11/27/24 History furosemide 20 mg tablet 40 mg PO DAILY diuretic 11/21/24 11/28/24 History magnesium oxide 400 mg (241.3 mg 400 mg PO DAILY supplement 11/21/24 11/28/24 History magnesium) tablet metformin 500 mg tablet,extended 500 mg PO QPM diabetes 11/21/24 11/27/24 History release 24 hr sodium bicarbonate 650 mg tablet 650 mg PO BID supplement 11/21/24 11/28/24 History thiamine HCl (vitamin B1) 100 mg 100 mg PO DAILY supplement 11/21/24 Unknown History tablet zinc sulfate 50 mg zinc (220 mg) 50 mg PO DAILY supplement 11/21/24 11/28/24 History tablet ascorbic acid (vitamin C) 500 mg 500 mg PO BID vitamin #60 tabs 11/25/24 11/28/24 Rx tablet midodrine 10 mg tablet 10 mg PO TID blood pressure 1 11/25/24 Unknown Rx month #90 tabs cyclobenzaprine 10 mg tablet 10 mg PO QHS muscle relaxer 01/02/25 Unknown History Held on 01/31/25. Instructions: Until you have completed your antibiotic then okay to restart ferrous sulfate 325 mg (65 mg 325 mg PO QODAY supplement 01/02/25 Unknown History iron) tablet (FeroSul) insulin lispro 100 unit/mL 10 unit (0.1 mL) subcut TIDAC #0 mL 01/05/25 Unknown Rx subcutaneous pen (Humalog KwikPen (U-100) Insulin) spironolactone 100 mg tablet 100 mg PO DAILY 1 month #30 tabs 01/21/25 Unknown Rx spironolactone 25 mg tablet 25 mg PO DAILY 30 days #30 tabs 01/21/25 Unknown Rx omeprazole 20 mg capsule,delayed 20 mg PO DAILY 01/28/25 Unknown History release oxycodone 5 mg tablet 2.5 mg PO Q8H PRN Pain Score 4-10 01/28/25 Unknown History Or Pre Pt/Ot insulin glargine-yfgn 100 unit/mL 20 unit (0.2 mL) subcut QHS #15 mL 01/31/25 Unknown Rx (3 mL) subcutaneous pen lactulose 10 gram/15 mL oral 10 g (15 mL) PO TID #3,000 mL 01/31/25 Unknown Rx solution linezolid 600 mg tablet 600 mg PO BID #5 tabs 01/31/25 Unknown Rx pen needle, diabetic 31 gauge x #1,200 ea 01/31/25 Unknown Rx 5/16 (Pen Needle) oxycodone 5 mg tablet 5 mg PO Q6H PRN pain 3 days #12 02/08/25 Unknown Rx tabs Allergy/AdvReac Type Severity Reaction Status Date / Time No Known Allergies Allergy Verified 02/16/25 17:20 Family History Mother Heart disease Hypertension CAD (coronary artery disease) Myocardial infarction Father Hypertension Heart disease Heart failure Surgical History History of tonsillectomy and adenoidectomy Social History household members: significant other Smoking Status: Former smoker how long ago did patient quit smoking: Quit ~ 3-4 months prior (fall 2023), smoked 1.5 ppd since teen until quit. alcohol intake: never substance use type: does not use ROS ROS ED ROS Narrative Recent nausea and vomiting. Per the patient's ex-. Constitutional Constitutional ED: Denies chills or fever(s) Eyes Eyes: Denies blurry vision ENT ENT ED: Denies ear pain Cardiovascular Cardiovascular: Denies chest pain Respiratory/Chest Respiratory/Chest: Denies cough or dyspnea Gastrointestinal Gastrointestinal: Reports nausea and vomiting; Denies abdominal pain Musculoskeletal Musculoskeletal: Denies arthralgias Integumentary Denies abscess Neurologic Neurologic: Denies headache(s) Psychiatric Psychiatric: Denies anxiety Endocrine Endocrinology: Denies cold intolerance Hematologic/Lymphatic Hematologic/Lymphatic: Reports none Allergic/Immunologic Allergic/Immunologic ED: Denies mouth swelling, tongue swelling or urticaria EXAM Physical Exam Narrative Exam Narrative: 59-year-old male vital signs are stable afebrile. Pulse ox 97% on room air. He does not look septic or toxic. He looks chronically ill. He is very jaundiced. H EENT exam pupils round reactive light. Scleral icterus. Moist mucous membranes. No signs of trauma to his face or scalp. Nontender. Neck nontender no lymphadenopathy. Back nontender. Lungs clear to auscultation bilaterally. Heart regular rhythm rate about 70 no murmur. Chest wall ribs nontender. Abdomen soft, nondistended normal bowel sounds without peritoneal signs. No abdominal tenderness. He does have ascites and ascitic wave. Moving all 4 extremities. Nontender no edema. Again he is jaundiced. Neurologically he is awake he is alert he knows where he is at he has no idea why he is here. He thought he was sent in for transfusion I explained to him his blood counts are where normally runs. Const Vital Signs: 02/16/25 17:20 02/16/25 18:30 Temperature 98 F Temperature Source Temporal Pulse Rate 72 Respiratory Rate 16 Respiratory Pattern Normal Blood Pressure 101/59 L Blood Pressure Mean 73 Pulse Ox 97 Oxygen Delivery Method Room Air Positive well nourished, well developed and obese; Negative for cachectic, contractures or unkempt General Appearance ED: well developed and NAD; Negative for unkempt, cachectic, contractures, cyanotic, diaphoretic or pallor Nutritional Appearance: obese; Negative for cachectic HEENT Reports moist mucous membranes Eyes PERRL and EOMs intact bilaterally General Eye ED: Yes scleral icterus Neck no lymphadenopathy, supple and no JVD Chest Wall inspection of chest normal and palpation of chest normal Resp normal respiratory effort and clear to auscultation bilaterally Cardio regular rate, regular rhythm, S1 normal heart sound, S2 normal heart sound and no murmurs GI normal to inspection, nondistended, normoactive bowel sounds, non-tender, non-distended and no masses GI Narrative: Abdominal ascites. Nontender. Palpation: soft; Negative for tender or guarding Back/Spine no CVA tenderness General Back: Negative for CVA tenderness Cervical Spine: Negative for cervical spine tenderness Thoracic Spine / Upper Back: Negative for thoracic spinal tenderness or paraspinal muscle tenderness Lumbar Spine / Lower Back: Negative for lumbar spinal tenderness Extremity normal to inspection General Extremety ED: Negative for edema or tenderness General Extremity: Negative for edema Neuro Neuro Narrative: Awake and alert. He knows that he is in the hospital. He is confused to why he is here. Sensorium / Orientation: alert Motor Exam: strength 5/5 throughout Psych mental status grossly normal Appearance: Negative for unkempt Skin no rashes or lesions noted, no wounds and skin turgor normal General Skin Exam: elasticity normal and jaundice; Negative for pallor Lesions: No lesion noted Trauma: Negative for abrasion Wounds: Negative for wounds noted MDM MDM MDM Narrative Medical decision making narrative: 59-year-old male known liver cirrhosis with ascites, chronic anemia and diabetes. Patient is unsure why he is here. His ex- who he lives with thought he was sent in for transfusion which I do not think is the case. I spoke the primary care physician on-call for the patient's primary care physician. He is unsure why it was sent to the emergency department. This may be secondary to mental status change from his elevated ammonia level which is 88. I will speak to the hospitalist about admitting him getting social media executive involved. They can also work on his elevated ammonia level. Patient may need to be going to hospice. I spoke to the hospitalist. He spoke to GI. GI plans to admit the patient through the hospitalist due to his elevated liver enzymes. Patient will be admitted to [facility]. History & Record Review Discussion w/independent historian: Patient and Family (Ex-.) Additional record(s) reviewed:: Prior inpatient record, Prior outpatient record, Prior ED visit and Prior labs Lab Data Attestation: I reviewed the patient's lab results. Lab results narrative: CBC shows a white count of 8. Hemoglobin 8.2 which is his baseline hematocrit 24. Platelets 106. Patient has chronic anemia. Electrolytes showed gap 12. BUN and creatinine twelve 1.3. Liver enzymes are elevated. Ammonia is elevated at 88. But his ammonia has been higher than this before. Discharge Plan Dx/Rx/DC Orders Clinical Impression: Cirrhosis of liver with ascites, Elevated liver enzymes, Hyperammonemia, Chronic anemia, History of diabetes mellitus Disposition Disposition: Acute Care Hospital [facility]
--- NOTE | 2025-02-16 18:25 | PCM.HP.STD ---
HPI - General General Date of Admission: 02/16/25 Date of Service: 02/16/25 Chief Complaint: Abnormal labs HPI Narrative FRANKLIN ARCHULETA, is a 59 M who presented to [facility] ED on 02/16/2025 with abnormal labs. Patient has been hospitalized here several times this year. Medical history significant for decompensated HARRIS cirrhosis with history of varices and hepatic encephalopathy, history of extensive portal venous thrombosis not on anticoagulation due to acute blood loss anemia with hematuria, left-sided staghorn calculi with left ureteral stenting, type 2 diabetes mellitus, hyperlipidemia and GERD. He was last hospitalized here at the end of January. Presented then with fevers and confusion and was found to have both a VRE and gram-negative UTI. Was suspected the confusion was secondary to both hepatic encephalopathy and UTI. ID followed and patient was discharged on linezolid on 01/31 to complete 7-day course of antibiotics total, which was completed on 02/03. He presented to the ED again on 02/08 with worsening abdominal distention with hernia. Hernia was noted to be reducible and patient was discharged home. He had paracentesis done on 02/11 with 1750 mL of clear yellow fluid removed. He presented again to the ED on 02/13 for worsening abdominal pain. He was noted to have a worsened total bilirubin of 6.2 up from baseline around 1.5-2 but labs were otherwise unremarkable, so he was discharged home. He saw his PCP in the office today who noted that patient had abnormal labs, so he sent him in for further evaluation. Patient was unclear on what these abnormal labs were and thought he needed a blood transfusion, but his hemoglobin is 8.2 today and stable from previous. His total bilirubin is 7.2, slightly worse than 3 days ago. Ammonia 88, but this is similar to prior values. Given concern for worsening decompensated cirrhosis, hospitalist was contacted for admission. I saw the patient at bedside in the ED. Patient was jaundiced and slightly confused appearing but was answering most questions appropriately. He reported very mild abdominal pain currently. Denied any other acute concerns. Discussed case over the phone with Dr. Li and with unclear reason for worsening total bilirubin currently, will admit the patient for further evaluation. [facility] Medical History VRE (vancomycin resistant enterococcus) culture positive Spinal stenosis, lumbar region with neurogenic claudication Hepatic encephalopathy Umbilical hernia Chronic hyponatremia Weakness Diarrhea Sepsis Acidosis, lactic Acute hypotension Acute UTI Chronic hypotension Obesity (BMI 30-39.9) Chronic back pain ISABEL (acute kidney injury) Hypotension Hyperbilirubinemia Liver cirrhosis secondary to HARRIS (nonalcoholic steatohepatitis) HLD (hyperlipidemia) HTN (hypertension) Thrombocytopenia Chronic anemia Former tobacco use Diabetes mellitus, type 2 ABBY on CPAP Back pain Home Medications ?Medication ?Instructions ?Recorded ?Last Taken ?Type rifaximin 550 mg tablet (Xifaxan) 550 mg PO BID diarrhea #60 tabs 09/02/24 11/28/24 Rx acetaminophen 500 mg tablet 1,000 mg PO Q8 PRN fever or pain 10/28/24 Unknown History calcium 500 mg (as 1 tab PO DAILY supplement 10/28/24 11/28/24 History carbonate)-vitamin D3 5 mcg (200 unit) tablet (Oyster Shell Calcium-Vitamin D3) folic acid 1 mg tablet 1 mg PO DAILY supplement 10/28/24 11/28/24 History atorvastatin 40 mg tablet 40 mg PO DAILY cholesterol 11/21/24 11/27/24 History furosemide 20 mg tablet 40 mg PO DAILY diuretic 11/21/24 11/28/24 History magnesium oxide 400 mg (241.3 mg 400 mg PO DAILY supplement 11/21/24 11/28/24 History magnesium) tablet metformin 500 mg tablet,extended 500 mg PO QPM diabetes 11/21/24 11/27/24 History release 24 hr sodium bicarbonate 650 mg tablet 650 mg PO BID supplement 11/21/24 11/28/24 History thiamine HCl (vitamin B1) 100 mg 100 mg PO DAILY supplement 11/21/24 Unknown History tablet zinc sulfate 50 mg zinc (220 mg) 50 mg PO DAILY supplement 11/21/24 11/28/24 History tablet ascorbic acid (vitamin C) 500 mg 500 mg PO BID vitamin #60 tabs 11/25/24 11/28/24 Rx tablet midodrine 10 mg tablet 10 mg PO TID blood pressure 1 11/25/24 Unknown Rx month #90 tabs cyclobenzaprine 10 mg tablet 10 mg PO QHS muscle relaxer 01/02/25 Unknown History Held on 01/31/25. Instructions: Until you have completed your antibiotic then okay to restart ferrous sulfate 325 mg (65 mg 325 mg PO QODAY supplement 01/02/25 Unknown History iron) tablet (FeroSul) insulin lispro 100 unit/mL 10 unit (0.1 mL) subcut TIDAC #0 mL 01/05/25 Unknown Rx subcutaneous pen (Humalog KwikPen (U-100) Insulin) spironolactone 100 mg tablet 100 mg PO DAILY 1 month #30 tabs 01/21/25 Unknown Rx spironolactone 25 mg tablet 25 mg PO DAILY 30 days #30 tabs 01/21/25 Unknown Rx omeprazole 20 mg capsule,delayed 20 mg PO DAILY 01/28/25 Unknown History release oxycodone 5 mg tablet 2.5 mg PO Q8H PRN Pain Score 4-10 01/28/25 Unknown History Or Pre Pt/Ot insulin glargine-yfgn 100 unit/mL 20 unit (0.2 mL) subcut QHS #15 mL 01/31/25 Unknown Rx (3 mL) subcutaneous pen lactulose 10 gram/15 mL oral 10 g (15 mL) PO TID #3,000 mL 01/31/25 Unknown Rx solution linezolid 600 mg tablet 600 mg PO BID #5 tabs 01/31/25 Unknown Rx pen needle, diabetic 31 gauge x #1,200 ea 01/31/25 Unknown Rx 5/16 (Pen Needle) oxycodone 5 mg tablet 5 mg PO Q6H PRN pain 3 days #12 02/08/25 Unknown Rx tabs Allergy/AdvReac Type Severity Reaction Status Date / Time No Known Allergies Allergy Verified 02/16/25 17:20 Family History Mother Heart disease Hypertension CAD (coronary artery disease) Myocardial infarction Father Hypertension Heart disease Heart failure Surgical History History of tonsillectomy and adenoidectomy Social History household members: significant other Smoking Status: Former smoker how long ago did patient quit smoking: Quit ~ 3-4 months prior (fall 2023), smoked 1.5 ppd since teen until quit. alcohol intake: never substance use type: does not use ROS Constitutional Constitutional: Reports fatigue; Denies chills, fever(s) or weakness Eyes Eyes: Denies change in vision Cardiovascular Cardiovascular: Denies chest pain Respiratory/Chest Respiratory/Chest: Denies shortness of breath at rest Gastrointestinal Gastrointestinal: Denies abdominal pain, nausea or vomiting Musculoskeletal Musculoskeletal: Denies arthralgias or myalgias Neurologic Neurologic: Denies dizziness, focal weakness or headache(s) Vital Signs Vital Signs Vital Signs: 02/16/25 17:20 Temperature 98 F Temperature Source Temporal Pulse Rate 72 Respiratory Rate 16 Blood Pressure 101/59 L Blood Pressure Mean 73 Pulse Ox 97 Oxygen Delivery Method Room Air Physical Exam Const alert and no apparent distress Constitutional Narrative: Middle-age male, appears older than stated age and chronically ill-appearing, jaundiced, mild confusion noted but otherwise answering most questions appropriately, sitting back comfortably in bed and in no acute distress. General Appearance: cooperative and comfortable HEENT normocephalic, head/scalp atraumatic, hearing grossly normal bilaterally, nasal mucous membranes and turbinates normal and moist oral mucous membranes Eyes PERRL, EOMs intact bilaterally and conjunctivae normal Neck full ROM Chest inspection of chest normal Resp normal respiratory effort, normal air movement, no use of accessory muscles and clear to auscultation bilaterally Cardio regular rate, regular rhythm, no murmurs and peripheral pulses 2+ throughout GI GI Narrative: Abdomen soft but mildly distended with fluid wave noted and mild diffuse tenderness to palpation. Back/Spine normal ROM Extremity normal to inspection, full ROM and no pedal edema Neuro moves all extremities and no focal motor deficits Psych mental status grossly normal Assessment & Plan Assessment/Plan (1) Decompensated cirrhosis: PLAN: Plan Patient is a 59-year-old male who presented to [facility] ED on 02/16/2025 with abnormal labs. 1. 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 Admit under inpatient status to [facility]. GI consulted. T. bili 7.2, direct bili 5.1, AST 109, ALT 51, alk phos 310, ammonia 88 on admit. Bilirubin notably is much more elevated than baseline for unclear reason. INR and LDH ordered. Per GI, concern is for worsening decompensated cirrhosis leading to elevated liver enzymes versus possible drug-induced liver injury. Patient was on IV antibiotics and then p.o. linezolid through 02/03. However, LFTs on 02/07 were normal and then LFTs on 02/13 were abnormal so timeline for DILI due to antibiotics does not seem to fit. Patient did have paracentesis done on 02/11; unclear if this has any bearing on the worsening bilirubin. Also has history of portal vein thrombosis as below and is not on anticoagulation. Med rec is pending but will plan to continue home medications. Appreciate GI recommendations. Of note, patient was determined not to be a liver transplant candidate by [facility] hepatology due to poor social support back in November. 2. Mild creatinine elevation ? Creatinine 1.30 on admit, baseline around 1.0-1.1. Notably creatinine was 1.78 on 02/13. Suspect this is due to lower blood volume after paracentesis on 02/11. Will hold on IV fluid resuscitation at this time. Monitor daily BMP and monitor urine output. 3. Hypokalemia ? Potassium 3.1 on admit. Mag and Phos ordered. Replete as needed. 4. History of extensive portal vein thrombosis ? Noted on imaging during prior hospitalization in November. Was started on anticoagulation at [facility] for this but this led to acute hematuria and acute blood loss anemia so patient is no longer on anticoagulation. 5. Chronic debility ? PT/OT/case management consulted. Patient lives at home with his ex- and has fairly poor functional status at baseline. Appreciate therapy recommendations. 6. 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 Recent hospitalization at the end of January for UTI with fevers. Completed 7-day course of antibiotics for this. No inpatient needs, continue outpatient urology follow-up. Chronic medical conditions: ? Chronic normocytic anemia: Hemoglobin 8.2 on admit, stable at baseline. Monitor. ? Type 2 diabetes mellitus: Med rec pending. Will treat with sliding scale insulin with meals for now, adjust as needed. ? Chronic hypotension: Continue home midodrine. ? Hyperlipidemia: Hold home statin given elevated LFTs as above. ? GERD: Continue home PPI. *Medication reconciliation is pending. Once completed, will need to review and restart home medications as indicated above. DVT prophylaxis: SCDs CODE STATUS: Full code, verified Expected disposition: TBD Total clinical time spent by myself addressing the patient's medical issues, reviewing all the data, and collaborating with patient's care team: 75 minutes. Charges/Coding Visit Charges Inpatient E&M: 16860 Init Hosp L3
[2025-02-16 19:05] LABS: Bilirubin, Direct 5.10 mg/dL (0.00-0.30); LDH 273 U/L (87-241)
[2025-02-16 19:34] VITALS: BP 102/61; PULSE 76; RESP 18; TEMP 36.6; O2SAT 96
[2025-02-16 19:56] VITALS: BMI 31.1
[2025-02-16 20:31] LABS: Prothrombin Time (Protime)PT. 21.1 SECONDS (11.7-14.9)
[2025-02-16 20:40] VITALS: BP 98/55; PULSE 64; RESP 22; TEMP 36.8; O2SAT 100
[2025-02-16 21:04] LABS: Magnesium 1.3 mg/dL (1.5-2.2)
[2025-02-16 21:52] VITALS: RESP 15
[2025-02-16] MEDS: Potassium Chloride Oral Tablet 20 MEQ 40 MEQ PO (23:30)
[2025-02-16] MEDS: Glucerna Shake 120 ML LIQUID PO (23:30)
[2025-02-16] MEDS: Insulin Glargine-YFGN 100 UNIT/ML Pen 15 UNIT SC (23:38)
[2025-02-17 04:46] VITALS: BP 95/50; PULSE 70; RESP 15; TEMP 36.6; O2SAT 98
[2025-02-17 05:59] LABS: Hematocrit 21.9 % (40-54); Hemoglobin 7.7 g/dL (13.0-16.5); Mean Corp Hgb Conc 35.2 g/dL (32-36); Mean Corpuscular Volume 85.2 fL (80-94); Mean Platelet Vol. 11.7 fl (6.2-12.0); POSITIVE COUNT YES; Platelet Count 90 K/mm3 (150-450); RBC Distribution Width CV 19.0 % (11.6-14.6); RBC Distribution Width SD 51.1 fl (35.1-43.9); Red Blood Count 2.57 M/mm3 (4.6-6.2); White Blood Count 8.5 K/mm3 (4.4-11.0)
[2025-02-17 06:00] LABS: Scan Indicated on CBC? Y/N YES- FLAGS NOTED
[2025-02-17 06:20] LABS: Prothrombin Time (Protime)PT. 22.8 SECONDS (11.7-14.9)
[2025-02-17 06:31] LABS: AST(SGOT) 99 U/L (<=37); Alanine Aminotransfer ALT/SGPT 46 U/L (<=46); Albumin, Serum 2.1 g/dL (3.5-5.0); Alkaline Phosphatase 278 U/L (40-129); Anion Gap 10 (5-15); BUN 11 mg/dL (4-19); BUN/Creat Ratio 9.7 RATIO (10-20); Calcium,Total 7.3 mg/dL (7.6-11.0); Carbon Dioxide 22.1 mmol/L (21.0-32.0); Chloride 100 mmol/L (98-108); Estimated Creatinine Clearance 79.19 ml/min (50-250); Globulin 3.2 g/dL (2.2-4.2); Glucose 246 mg/dL (70-99); Potassium 3.6 mmol/L (3.3-5.1)
[2025-02-17 06:45] LABS: Differential Comment SCANNED
--- NOTE | 2025-02-17 07:15 | PCM.PN.HOSP ---
Reason for Visit Chief Complaint: Abnormal labs Objective Data Objective Data Vital Signs: Vital Signs Temp Pulse Resp BP Pulse Ox O2 Del Method 97.9 F 70 15 95/50 L 98 Room Air 02/17/25 04:46 02/17/25 04:46 02/17/25 04:46 02/17/25 04:46 02/17/25 04:46 02/17/25 04:46 Oxygen Delivery Method Room Air Weight: 210 lb 12.191 oz Body Mass Index (BMI) 31.1 Intake & Output: Intake and Output for Last 24 Hours 02/15/25 02/16/25 02/17/25 23:59 23:59 23:59 Intake Total 400 / 400 Output Total 300 / 300 Balance 100 / 100 Lab / Micro Data 02/17/25 05:27 02/17/25 05:27 Labs: Laboratory Results - last 24 hr 02/16/25 14:11: Direct Bilirubin 5.10 H, Lactate Dehydrogenase 273 H 02/16/25 20:02: PT 21.1 H, INR 1.8, Phosphorus 2.3 L, Magnesium 1.3 L 02/16/25 23:37: POC Glucose 216 H 02/17/25 05:27: WBC 8.5, RBC 2.57 L, Hgb 7.7 L, Hct 21.9 L, MCV 85.2, MCH 30.0, MCHC 35.2 D, RDW Std Deviation 51.1 H, RDW Coeff of Francis 19.0 H, Plt Count 90 L, MPV 11.7, Differential Comment SCANNED, PT 22.8 H, INR 2.0, Sodium 132 L, Potassium 3.6, Chloride 100, Carbon Dioxide 22.1, Anion Gap 10, BUN 11, Creatinine 1.16, Estim Creat Clear Calc 79.19, Est GFR (MDRD) Non-Af 73, BUN/Creatinine Ratio 9.7 L, Glucose 246 H, Calcium 7.3 L, Total Bilirubin 6.79 H, AST 99 H, ALT 46, Alkaline Phosphatase 278 H, Total Protein 5.3 L, Albumin 2.1 L, Globulin 3.2, Albumin/Globulin Ratio 0.7 L Assessment & Plan Assessment/Plan (1) Decompensated cirrhosis: PLAN: Plan Patient is a 59-year-old male who presented to [facility] ED on 02/16/2025 with abnormal labs. 1. 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 Admit under inpatient status to [facility]. GI consulted. T. bili 7.2, direct bili 5.1, AST 109, ALT 51, alk phos 310, ammonia 88 on admit. Bilirubin notably is much more elevated than baseline for unclear reason. INR and LDH ordered. Per GI, concern is for worsening decompensated cirrhosis leading to elevated liver enzymes versus possible drug-induced liver injury. Patient was on IV antibiotics and then p.o. linezolid through 02/03. However, LFTs on 02/07 were normal and then LFTs on 02/13 were abnormal so timeline for DILI due to antibiotics does not seem to fit. Patient did have paracentesis done on 02/11; unclear if this has any bearing on the worsening bilirubin. Also has history of portal vein thrombosis as below and is not on anticoagulation. [facility] is pending but will plan to continue home medications. Appreciate GI recommendations. Of note, patient was determined not to be a liver transplant candidate by [facility] hepatology due to poor social support back in November. 2. Mild creatinine elevation ? Creatinine 1.30 on admit, baseline around 1.0-1.1. Notably creatinine was 1.78 on 02/13. Suspect this is due to lower blood volume after paracentesis on 02/11. Will hold on IV fluid resuscitation at this time. Monitor daily BMP and monitor urine output. 3. Hypokalemia ? Potassium 3.1 on admit. Mag and Phos ordered. Replete as needed. 4. History of extensive portal vein thrombosis ? Noted on imaging during prior hospitalization in November. Was started on anticoagulation at [facility] for this but this led to acute hematuria and acute blood loss anemia so patient is no longer on anticoagulation. 5. Chronic debility ? PT/OT/case management consulted. Patient lives at home with his ex- and has fairly poor functional status at baseline. Appreciate therapy recommendations. 6. 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 Recent hospitalization at the end of January for UTI with fevers. Completed 7-day course of antibiotics for this. No inpatient needs, continue outpatient urology follow-up. Chronic medical conditions: ? Chronic normocytic anemia: Hemoglobin 8.2 on admit, stable at baseline. Monitor. ? Type 2 diabetes mellitus: Med rec pending. Will treat with sliding scale insulin with meals for now, adjust as needed. ? Chronic hypotension: Continue home midodrine. ? Hyperlipidemia: Hold home statin given elevated LFTs as above. ? GERD: Continue home PPI. *Medication reconciliation is pending. Once completed, will need to review and restart home medications as indicated above. DVT prophylaxis: SCDs CODE STATUS: Full code, verified Expected disposition: TBD Total clinical time spent by myself addressing the patient's medical issues, reviewing all the data, and collaborating with patient's care team: 75 minutes.
[2025-02-17 10:20] VITALS: BP 120/65; PULSE 80; RESP 19; TEMP 36.5; O2SAT 96
[2025-02-17] MEDS: Glucerna Shake 120 ML LIQUID PO ×2 (10:24→13:36)
[2025-02-17] MEDS: Thiamine Hydrochloride 100 MG Tablet PO (10:25)
--- NOTE | 2025-02-17 11:16 | PCM.DC ---
Discharge Instructions DC O2, CPAP, BIPAP needs Home O2 Discharge instructions: No Dressing / Incision Discharge Activity: Return to Normal Activity Weight Bearing Status: Weight bearing as tolerated Dressing / Incision Call your doctor if you observe: Fever of 101 or Higher, Coldness, Increased Pain, Numbness or Tingling, Change in Color, Inability to urinate, Inability to have a bowel movement, Shortness of breath, Dizziness, Fainting spells, Swelling in the ankles, Chest pain, Prolonged hiccupping, Increased palpitations (irregular heartbeat) and Calf discomfort Follow Up Care When: IN 2 WEEKS Test Results: Test results from this visit will be discussed in further detail at your follow-up appointment, if applicable. Discharge Plan Admission Admit Date/Time: 02/16/25 18:26 Primary Reason for Your Visit: Decompensated cirrhosis Attending Provider: Anurag Irene Primary Care Provider: Jerald Sherwood Consulting Providers: Jae Ash; Friend,Niranjan Instructions Additional Instructions / Restrictions: Dose of spironolactone increased from 125 mg daily to 150 mg daily. Patient states he is taking his medications regularly. Discharge Orders/Prescriptions Prescriptions: New furosemide 40 mg Tablet 40 mg PO DAILY 30 Days Qty: 30 2RF Continued Xifaxan 550 mg Tablet 550 mg PO BID Qty: 60 0RF cyclobenzaprine 10 mg tablet 10 mg PO QHS ferrous sulfate [FeroSul] 325 mg (65 mg iron) tablet 325 mg PO QODAY insulin lispro [Humalog KwikPen Insulin] 100 unit/mL Insulin Pen 10 unit subcut TIDAC Qty: 0 0RF lactulose 10 gram/15 mL Solution 10 g PO TID Qty: 3000 0RF Rx Instructions: Goal is 2-3 bowel movements daily if you are having more than this with this amount of lactulose decrease dose to twice daily from 3 times daily insulin glargine-yfgn 100 unit/mL (3 mL) Insulin Pen 20 unit subcut QHS Qty: 15 1RF (DME) pen needle, diabetic [Pen Needle] 31 gauge x 5/16 needle See Rx Instructions .Route Qty: 1200 0RF Rx Instructions: As directed folic acid 1 mg tablet 1 mg PO DAILY calcium carbonate-vitamin D3 [Oyster Shell Calcium-Vit D3] 500 mg-5 mcg (200 unit) tablet 1 tab PO DAILY acetaminophen 500 mg Tablet 1,000 mg PO Q8 PRN (Reason: fever or pain) atorvastatin 40 mg tablet 40 mg PO DAILY magnesium oxide 400 mg (241.3 mg magnesium) tablet 400 mg PO DAILY sodium bicarbonate 650 mg tablet 650 mg PO BID metformin 500 mg tablet extended release 24 hr 500 mg PO QPM thiamine HCl (vitamin B1) 100 mg tablet 100 mg PO DAILY zinc sulfate 50 mg zinc (220 mg) tablet 50 mg PO DAILY ascorbic acid (vitamin C) 500 mg tablet 500 mg PO BID Qty: 60 2RF Changed spironolactone 100 mg tablet 150 mg PO DAILY 30 Days Qty: 30 2RF Rx Instructions: Hold for serum potassium more than 5.0. Discontinued furosemide 20 mg tablet 40 mg PO DAILY Other Ambulatory Orders: CBC W/Diff, Automated (Routine) Timeframe: 2 Weeks Facility: [facility] - Location: Laboratory Ordered By: Dr. Anurag Irene Comprehensive Metabolic Profil (Routine) Timeframe: 2 Weeks Facility: [facility] - Location: Laboratory Ordered By: Dr. Anurag Irene Magnesium (Routine) Timeframe: 2 Weeks Facility: [facility] - Location: Laboratory Ordered By: Dr. Anurag Irene Prothrombin Time w/INR (Routine) Timeframe: 2 Weeks Facility: [facility] - Location: Laboratory Ordered By: Dr. Anurag Irene Referrals / Follow Up: Jerald Sherwood MD [Primary Care Provider] - Niranjan Li DO [Med Staff - Active Staff] - Within 1 Month Disposition Disposition (needs filled in before D/C Order can be placed): Home, Self Care
--- NOTE | 2025-02-17 11:29 | DS.PCM_ITS ---
Providers Date of Admission: 02/16/25 Date of Discharge: 02/17/25 Primary Care Physician: Dr. Jerald Sherwood MD Consultations 02/16/25 19:51 Consult: Gastroenterology Routine Consulting Provider: Niranjan Li Reason for Consult: decompensated cirrhosis EMERGENT Consult: No Notified: Yes Date Notified: 02/17/25 Time Notified: 07:47 Method of Notification: Text Reason For Visit: DECOMPENSATED CIRRHOSIS Diagnosis Discharge Diagnosis (1) Decompensated cirrhosis: Status: Acute Code(s): K72.90 - Hepatic failure, unspecified without coma; K74.60 - Unspecified cirrhosis of liver Plan Patient is a 59-year-old male who presented to [facility] ED on 02/16/2025 with abnormal labs. 1. 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 Admit under inpatient status to [facility]. GI consulted. T. bili 7.2, direct bili 5.1, AST 109, ALT 51, alk phos 310, ammonia 88 on admit. Bilirubin notably is much more elevated than baseline for unclear reason. Patient was on IV antibiotics and then p.o. linezolid through 02/03. However, LFTs on 02/07 were normal and then LFTs on 02/13 were abnormal so timeline for DILI due to antibiotics does not seem to fit. Patient did have paracentesis done on 02/11; unclear if this has any bearing on the worsening bilirubin. Also has history of portal vein thrombosis as below and is not on anticoagulation. Appreciate GI recommendations. Of note, patient was determined not to be a liver transplant candidate by [facility] hepatology due to poor social support back in November. 02/17: MELD sodium 30, MELD 3.0; 27 as per labs 02/17/2025, TB 6.79, sodium 132, INR 2.0, creatinine 1.16 and albumin 3.2. Total bilirubin was 7.29, direct 5.10 therefore direct hyperbilirubinemia. Patient was sent to ED for abnormal labs which will be abnormal given history of decompensated cirrhosis therefore I did not see any indication for admission. His labs are gotten worse because of worsening of liver function/decompensation. His medications reviewed and advised not to take NSAIDs or Tylenol or other hepatotoxic medications. Patient is states that he is taking medications as prescribed regularly. Spironolactone dose increased to 150 mg from previous 125 mg and still potassium is low normal. Continue furosemide 40 mg daily. Follow-up in GI office in 2 weeks 2. Mild creatinine elevation ? Creatinine 1.30 on admit, baseline around 1.0-1.1. Notably creatinine was 1.78 on 02/13. Suspect this is due to lower blood volume after paracentesis on 02/11. 02/17 creatinine improved to 1.16 3. Hypokalemia ? Potassium 3.1 on admit. Magnesium is low, 1.3 therefore IV magnesium infusion ordered 4. History of extensive portal vein thrombosis ? Noted on imaging during prior hospitalization in November. Was started on anticoagulation at [facility] for this but this led to acute hematuria and acute blood loss anemia so patient is no longer on anticoagulation. 02/17: Patient stated he has not been on anticoagulation for a long time since November 2024. Will reevaluate in the office about restarting anticoagulation but INR currently is 2.0. 5. Chronic debility ? PT/OT/case management consulted. Patient lives at home with his ex- and has fairly poor functional status at baseline. Appreciate therapy recommendations. 6. 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 Recent hospitalization at the end of January for UTI with fevers. Completed 7- day course of antibiotics for this. No inpatient needs, continue outpatient urology follow-up. Chronic medical conditions: ? Chronic normocytic anemia: Hemoglobin 8.2 on admit, stable at baseline. 02/17: Hemoglobin is 7.7. Patient on ferrous sulfate and ascorbic acid continue ? Type 2 diabetes mellitus: Continue home dose of insulin ? Chronic hypotension: Continue home midodrine. ? Hyperlipidemia: Hold home statin given elevated LFTs as above. ? GERD: Continue home PPI. CODE STATUS: Full code, verified Discharge medication reconciliation done. Discharge follow-up instructions completed. Discharge process discussed with the patient and all questions were answered to patient's satisfaction. Follow with PCP in 1 to 2 weeks. Advised follow-up in GI office. Patient will need referral to liver transplant center most likely as he has already been turned down by [facility] for poor social support as mentioned above. Total time spent, exact 35 minutes on discharge meds reconciliation, examination, coordination of care with nurses and ancillary staff, review of imaging and blood test and discussion with the patient on follow-up instructions. Medications at Discharge Home Medications rifaximin 550 mg tablet (Xifaxan) 550 mg PO BID diarrhea #60 tabs 09/02/24 acetaminophen 500 mg tablet 1,000 mg PO Q8 PRN fever or pain 10/28/24 calcium 500 mg (as carbonate)-vitamin D3 5 mcg (200 unit) tablet (Oyster Shell Calcium-Vitamin D3) 1 tab PO DAILY supplement 10/28/24 folic acid 1 mg tablet 1 mg PO DAILY supplement 10/28/24 atorvastatin 40 mg tablet 40 mg PO DAILY cholesterol 11/21/24 magnesium oxide 400 mg (241.3 mg magnesium) tablet 400 mg PO DAILY supplement 11/21/24 metformin 500 mg tablet,extended release 24 hr 500 mg PO QPM diabetes 11/21/24 sodium bicarbonate 650 mg tablet 650 mg PO BID supplement 11/21/24 thiamine HCl (vitamin B1) 100 mg tablet 100 mg PO DAILY supplement 11/21/24 zinc sulfate 50 mg zinc (220 mg) tablet 50 mg PO DAILY supplement 11/21/24 ascorbic acid (vitamin C) 500 mg tablet 500 mg PO BID vitamin #60 tabs 11/25/24 cyclobenzaprine 10 mg tablet 10 mg PO QHS muscle relaxer 01/02/25 ferrous sulfate 325 mg (65 mg iron) tablet (FeroSul) 325 mg PO QODAY supplement 01/02/25 insulin lispro 100 unit/mL subcutaneous pen (Humalog KwikPen (U-100) Insulin) 10 unit (0.1 mL) subcut TIDAC #0 mL 01/05/25 insulin glargine-yfgn 100 unit/mL (3 mL) subcutaneous pen 20 unit (0.2 mL) subcut QHS #15 mL 01/31/25 lactulose 10 gram/15 mL oral solution 10 g (15 mL) PO TID #3,000 mL 01/31/25 pen needle, diabetic 31 gauge x 5/16 (Pen Needle) #1,200 ea 01/31/25 furosemide 40 mg tablet 40 mg PO DAILY 30 days #30 tabs 02/17/25 spironolactone 100 mg tablet 150 mg (1.5 x 100 mg) PO DAILY 1 month #30 tabs 02/17/25 Physical Exam Narrative Generalized fatigue. No fever. No burning micturition. Moving his bowels. Seen and examined General: Alert, Oriented x3, Cooperative HEENT: Atraumatic, PERRLA, EOMI, Normocephalic. Oral: Oral mucosa moist. No Gingival or Mucosal Lesions/ Ulcerations Neck: Supple, No JVD, Negative Carotid Bruits Chest wall/Lungs: Air entry diminished in bilateral lung bases. No crepitation/rhonchi Cardiovascular: Regular rate and rhythm, Normal S1,S2, No M/G/R Abdomen: Bowel Sounds Present, Soft, Non Tender, ascites present. : No dysuria. No renal angle tenderness. No suprapubic tenderness. Extremities: No edema, Capillary Refill Less than 3 Seconds Skin: Bruises present on left upper arm and abdomen. Coagulopathy. Musculoskeletal: No Tenderness to Palpation of Joints or Extremities Neurological: Cranial nerves II-XII grossly intact, DTR 2+/4. No acute focal neurological deficit. Psych/Mental Status: Normal Affect, Appropriate. Weight / BMI Weight Weight: 210 lb 12.191 oz Body Mass Index (BMI) 31.1 ABG / Lab / Microbiology Data 02/17/25 05:27 02/17/25 05:27 Laboratory: Laboratory Results - last 24 hr 02/16/25 14:11: Direct Bilirubin 5.10 H, Lactate Dehydrogenase 273 H 02/16/25 20:02: PT 21.1 H, INR 1.8, Phosphorus 2.3 L, Magnesium 1.3 L 02/16/25 23:37: POC Glucose 216 H 02/17/25 05:27: WBC 8.5, RBC 2.57 L, Hgb 7.7 L, Hct 21.9 L, MCV 85.2, MCH 30.0, MCHC 35.2 D, RDW Std Deviation 51.1 H, RDW Coeff of Francis 19.0 H, Plt Count 90 L, MPV 11.7, Differential Comment SCANNED, PT 22.8 H, INR 2.0, Sodium 132 L, Potassium 3.6, Chloride 100, Carbon Dioxide 22.1, Anion Gap 10, BUN 11, Creatinine 1.16, Estim Creat Clear Calc 79.19, Est GFR (MDRD) Non-Af 73, B UN/Creatinine Ratio 9.7 L, Glucose 246 H, Calcium 7.3 L, Total Bilirubin 6.79 H, AST 99 H, ALT 46, Alkaline Phosphatase 278 H, Total Protein 5.3 L, Albumin 2.1 L , Globulin 3.2, Albumin/Globulin Ratio 0.7 L 02/17/25 11:19: POC Glucose 194 H D/C Instructions Weight Bearing Status: Weight bearing as tolerated Call your doctor if you observe: Fever of 101 or Higher, Coldness, Increased Pain, Numbness or Tingling, Change in Color, Inability to urinate, Inability to have a bowel movement, Shortness of breath, Dizziness, Fainting spells, Swelling in the ankles, Chest pain, Prolonged hiccupping, Increased palpitations (irregular heartbeat) and Calf discomfort DC O2, CPAP, BIPAP Needs Home O2 Discharge instructions: No When: IN 2 WEEKS Meaningful Use Info Meaningful Use Meaningful Use Diagnoses (Choose all that apply): None applicable Discharge Plan Admission Admit Date/Time: 02/16/25 18:26 Primary Reason for Your Visit: Decompensated cirrhosis Attending Provider: Anurag Irene Primary Care Provider: Jerald Sherwood Consulting Providers: Jae Ash; Friend,Niranjan Instructions Additional Instructions / Restrictions: Dose of spironolactone increased from 125 mg daily to 150 mg daily. Patient states he is taking his medications regularly. Discharge Orders/Prescriptions Prescriptions: New furosemide 40 mg Tablet 40 mg PO DAILY 30 Days Qty: 30 2RF Continued Xifaxan 550 mg Tablet 550 mg PO BID Qty: 60 0RF cyclobenzaprine 10 mg tablet 10 mg PO QHS ferrous sulfate [FeroSul] 325 mg (65 mg iron) tablet 325 mg PO QODAY insulin lispro [Humalog KwikPen Insulin] 100 unit/mL Insulin Pen 10 unit subcut TIDAC Qty: 0 0RF lactulose 10 gram/15 mL Solution 10 g PO TID Qty: 3000 0RF Rx Instructions: Goal is 2-3 bowel movements daily if you are having more than this with this amount of lactulose decrease dose to twice daily from 3 times daily insulin glargine-yfgn 100 unit/mL (3 mL) Insulin Pen 20 unit subcut QHS Qty: 15 1RF (DME) pen needle, diabetic [Pen Needle] 31 gauge x 5/16 needle See Rx Instructions .Route Qty: 1200 0RF Rx Instructions: As directed folic acid 1 mg tablet 1 mg PO DAILY calcium carbonate-vitamin D3 [Oyster Shell Calcium-Vit D3] 500 mg-5 mcg (200 unit) tablet 1 tab PO DAILY acetaminophen 500 mg Tablet 1,000 mg PO Q8 PRN (Reason: fever or pain) atorvastatin 40 mg tablet 40 mg PO DAILY magnesium oxide 400 mg (241.3 mg magnesium) tablet 400 mg PO DAILY sodium bicarbonate 650 mg tablet 650 mg PO BID metformin 500 mg tablet extended release 24 hr 500 mg PO QPM thiamine HCl (vitamin B1) 100 mg tablet 100 mg PO DAILY zinc sulfate 50 mg zinc (220 mg) tablet 50 mg PO DAILY ascorbic acid (vitamin C) 500 mg tablet 500 mg PO BID Qty: 60 2RF Changed spironolactone 100 mg tablet 150 mg PO DAILY 30 Days Qty: 30 2RF Rx Instructions: Hold for serum potassium more than 5.0. Discontinued furosemide 20 mg tablet 40 mg PO DAILY Other Ambulatory Orders: CBC W/Diff, Automated (Routine) Timeframe: 2 Weeks Facility: [facility] - Location: Laboratory Ordered By: Dr. Anurag Irene Comprehensive Metabolic Profil (Routine) Timeframe: 2 Weeks Facility: [facility] - Location: Laboratory Ordered By: Dr. Anurag Irene Magnesium (Routine) Timeframe: 2 Weeks Facility: [facility] - Location: Laboratory Ordered By: Dr. Anurag Irene Prothrombin Time w/INR (Routine) Timeframe: 2 Weeks Facility: [facility] - Location: Laboratory Ordered By: Dr. Anurag Irene Referrals / Follow Up: Jerald Sherwood MD [Primary Care Provider] - Niranjan Li DO [Med Staff - Active Staff] - 03/16/25 1:00 pm (Appointment with Nelida Powell) Disposition Disposition (needs filled in before D/C Order can be placed): Home, Self Care Charges/Coding Visit Charges Inpatient E&M: 39324 Disch Hosp >30min
[2025-02-17] MEDS: Magnesium Sulfate 2 GM in Dextrose 5%-Water (100mL Bag) 100 ML IV (13:36)
[2025-02-17] MEDS: 0.9% Normal Saline (250mL Bag) 250 ML 15 ML IV (13:36)
--- NOTE | 2025-02-17 14:20 | PHA.DC_ITS ---
Pharmacy [facility] Counseling Pharmacy Service has performed discharge medication reconciliation and counseling for this patient. 1. CARVEDILOL 3.125MG PO BID 2. FUROSEMIDE CHANGED TO 40MG 3. SPIRONOLACTONE CHANGED TO 150MG The patient's discharge medication list was reviewed for discrepancies and discrepancies were resolved. The patient was counseled on the following discharge medications and changes in medications for homegoing were reviewed. The Reason for Use, instructions for use, and potential side effects were reviewed for all new medications. The patient's questions regarding all of their medications were answered. The patient was able to verbally demonstrate an understanding of their discharge medications. Medications at Discharge Home Medications rifaximin 550 mg tablet (Xifaxan) 550 mg PO BID diarrhea #60 tabs 09/02/24 acetaminophen 500 mg tablet 1,000 mg PO Q8 PRN fever or pain 10/28/24 calcium 500 mg (as carbonate)-vitamin D3 5 mcg (200 unit) tablet (Oyster Shell Calcium-Vitamin D3) 1 tab PO DAILY supplement 10/28/24 folic acid 1 mg tablet 1 mg PO DAILY supplement 10/28/24 atorvastatin 40 mg tablet 40 mg PO DAILY cholesterol 11/21/24 magnesium oxide 400 mg (241.3 mg magnesium) tablet 400 mg PO DAILY supplement 11/21/24 metformin 500 mg tablet,extended release 24 hr 500 mg PO QPM diabetes 11/21/24 sodium bicarbonate 650 mg tablet 650 mg PO BID supplement 11/21/24 thiamine HCl (vitamin B1) 100 mg tablet 100 mg PO DAILY supplement 11/21/24 zinc sulfate 50 mg zinc (220 mg) tablet 50 mg PO DAILY supplement 11/21/24 ascorbic acid (vitamin C) 500 mg tablet 500 mg PO BID vitamin #60 tabs 11/25/24 cyclobenzaprine 10 mg tablet 10 mg PO QHS muscle relaxer 01/02/25 ferrous sulfate 325 mg (65 mg iron) tablet (FeroSul) 325 mg PO QODAY supplement 01/02/25 insulin lispro 100 unit/mL subcutaneous pen (Humalog KwikPen (U-100) Insulin) 10 unit (0.1 mL) subcut TIDAC #0 mL 01/05/25 insulin glargine-yfgn 100 unit/mL (3 mL) subcutaneous pen 20 unit (0.2 mL) subcut QHS #15 mL 01/31/25 lactulose 10 gram/15 mL oral solution 10 g (15 mL) PO TID #3,000 mL 01/31/25 pen needle, diabetic 31 gauge x 5/16 (Pen Needle) #1,200 ea 01/31/25 carvedilol 3.125 mg tablet 3.125 mg PO BID 1 month #60 tabs 02/17/25 furosemide 40 mg tablet 40 mg PO DAILY 30 days #30 tabs 02/17/25 spironolactone 100 mg tablet 150 mg (1.5 x 100 mg) PO DAILY 1 month #30 tabs 02/17/25
--- NOTE | 2025-02-17 14:42 | CASEMGMT ---
Addendum entered by Julita Glover 02/17/25 16:51: Noted note from RN SAUL, Patrick, during discharge follow-up call 02/02 that pt had not picked up linezolid or pen needles yet. Call placed to [facility]. They verified linezolid was picked up on 02/02 and that the pen needles have also been picked up. Original Note: DAYSI HUGHES NOTE: Pt being discharged home today. Rx's have been e-scribed to [facility] pharmacy. DAYSI HUGHES to room. Pt states his ex-, Sylvia, has been assisting him w/his appts. He gave permission for this RN SAUL to call her to discuss care, medication, and appts. PCP: Dr Sherwood was listed as pt's PCP. Pt states he just went to see Dr Sherwood yesterday. He also states he was supposed to see Josy today over there across from the hospital today, stating Josy is his PCP, but he was not able to state what office/clinic Josy works in. Call placed to Dr Sherwood's office. Pt is not established there. His appt w/Dr Sherwood was just a ER follow-up visit. Call placed to [facility]. Pt did have an appt with MOE Ferris, today @ [facility], but pt's ex- had called in and re-scheduled it to 02/28 @ 11:30 AM. Per grooving 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 the visit today w/Josy was for medications. He is not established @ [facility] yet, but she states they can do make the appt for 02/28 an appt to get established w/them as pt's PCP and also medication review and hospital f/u all in one visit. Pt made aware. Palliative: Discussed Palliative care with pt. He is interested in a referral. Dr Irene made aware, order received and [id number]mail. Pt states to have [facility] call his ex- when they call to discuss things further and when scheduling appts. Sylvia was made aware of this referral. HHC: HHC was not able to be secured during pt's last admission. Pt is still interested in HHC. Pt made aware HHC cannot be set-up until he is established with a PCP. He voices understanding. [facility]: Noted in pt's chart, pt has been active w/[facility] in the past, but when he went to a SNF, they discharged him. Discussed [facility]. Pt is interested in another referral. Order placed. Pt states to have [facility] call his ex- when they call to discuss things further and when scheduling appts. Sylvia was made aware of this referral as well. Medications: Pt states he is out of some of his medications, but he is not sure what he needs. RN CM placed call back to ex-, Sylvia, and suggested she bring in pt's medications/pill bottles to [facility] today to review with pt's RN what he should be taking and to determine what he needs new Rx's for prior to being discharged. Sylvia stated she would go home to get them before coming to pick pt up from the hospital today. She states a package arrived at the home today as well and she stated, They could be his medications he needs. While still on the phone w/Sylvia, a male in the background started yelling and swearing and stated, It's not my responsibility to drive all over the place for him. Sylvia stated to this RN CM to just have someone call them when pt is ready to be picked up. Sylvia made aware of appt scheduled w/Dr Li on March and made aware it will be in pt's discharge packet. The appt she re-scheduled w/Josy @ [facility] on 02/28 was also added to pt's discharge plan and Sylvia is aware of same. Pt denies having other discharge needs or concerns. Plan: Home w/support of ex-. Holger WARNER RN CM
[2025-02-17 17:05] VITALS: BP 123/71; PULSE 74; RESP 16; TEMP 36.8; O2SAT 98
--- NOTE | 2025-02-17 17:30 | EX.PCM.CON.G ---
HPI Consult Data Date of Consult: 02/17/25 HPI Narrative Reason for Consultation: Cirrhosis HPI Narrative: FRANKLIN ARCHULETA, is a 59 M who presented to the [facility] ED on 08/29/24 with generalized fatigue, malaise with ongoing significant lumbar back pain reported that likely his ammonia level is elevated. The patient does not have a local liver doctor. He recently moved here from [place]. 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 He states that was sent in today by his primary care physician due to abnormal labs. Patient is not really sure why. He was noted to have a blood pressure of 77/47 with a MAP of 57 with heart rate 59, CBC with WBC 11.9, hemoglobin 8.3, MCV 83.4, platelet 87 with left shift, coags with PT 20, PTT 40.9, INR 1.7 --> his hemoglobin went down to 8.2. On repeat was 7.7. CMP with sodium 134, come back side 18, anion gap 12, BUN/creatinine 76/5.63, glucose 257 T. bili 1.40, AST/ALT 32/26, alk phos 172, ammonia level 99, lipase 26 urinalysis with specific cavity 1.015, protein 30, glucose 50, negative ketone, occult blood 150, negative nitrite, leukocyte esterase 500 with urine WBCs 10-25 with rare urine bacteria, CT scan of abdomen pelvis: 1. Stable appearance of the abdomen and pelvis compared to CT performed 02/07/2025. There is a moderate volume of ascites which is minimally changed. 2. Numerous unchanged findings as detailed above, including cirrhosis with stigmata of portal hypertension, left ureteral stent with a left staghorn calculus, and cholelithiasis., EKG with sinus bradycardia with no acute evidence of ischemia. 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) HLD (hyperlipidemia) HTN (hypertension) Thrombocytopenia Chronic anemia Former tobacco use Diabetes mellitus, type 2 ABBY on CPAP Back pain Home Medications ?Medication ?Instructions ?Recorded ?Last Taken ?Type rifaximin 550 mg tablet (Xifaxan) 550 mg PO BID diarrhea #60 tabs 09/02/24 02/15/25 Rx acetaminophen 500 mg tablet 1,000 mg PO Q8 PRN fever or pain 10/28/24 Unknown History calcium 500 mg (as 1 tab PO DAILY supplement 10/28/24 02/15/25 History carbonate)-vitamin D3 5 mcg (200 unit) tablet (Oyster Shell Calcium-Vitamin D3) folic acid 1 mg tablet 1 mg PO DAILY supplement 10/28/24 02/15/25 History atorvastatin 40 mg tablet 40 mg PO DAILY cholesterol 11/21/24 02/15/25 History magnesium oxide 400 mg (241.3 mg 400 mg PO DAILY supplement 11/21/24 02/15/25 History magnesium) tablet metformin 500 mg tablet,extended 500 mg PO QPM diabetes 11/21/24 02/15/25 History release 24 hr sodium bicarbonate 650 mg tablet 650 mg PO BID supplement 11/21/24 02/15/25 History thiamine HCl (vitamin B1) 100 mg 100 mg PO DAILY supplement 11/21/24 02/15/25 History tablet zinc sulfate 50 mg zinc (220 mg) 50 mg PO DAILY supplement 11/21/24 02/15/25 History tablet ascorbic acid (vitamin C) 500 mg 500 mg PO BID vitamin #60 tabs 11/25/24 02/15/25 Rx tablet cyclobenzaprine 10 mg tablet 10 mg PO QHS muscle relaxer 01/02/25 02/15/25 History ferrous sulfate 325 mg (65 mg 325 mg PO QODAY supplement 01/02/25 02/15/25 History iron) tablet (FeroSul) insulin lispro 100 unit/mL 10 unit (0.1 mL) subcut TIDAC #0 mL 01/05/25 02/15/25 Rx subcutaneous pen (Humalog KwikPen (U-100) Insulin) insulin glargine-yfgn 100 unit/mL 20 unit (0.2 mL) subcut QHS #15 mL 01/31/25 02/15/25 Rx (3 mL) subcutaneous pen lactulose 10 gram/15 mL oral 10 g (15 mL) PO TID #3,000 mL 01/31/25 Unknown Rx solution pen needle, diabetic 31 gauge x #1,200 ea 01/31/25 Unknown Rx 12/17 (Pen Needle) carvedilol 3.125 mg tablet 3.125 mg PO BID 1 month #60 tabs 02/17/25 Unknown Rx furosemide 40 mg tablet 40 mg PO DAILY 30 days #30 tabs 02/17/25 Unknown Rx spironolactone 100 mg tablet 150 mg (1.5 x 100 mg) PO DAILY 1 02/17/25 02/15/25 Rx month #30 tabs Allergy/AdvReac Type Severity Reaction Status Date / Time No Known Allergies Allergy Verified 02/16/25 17:20 Family History Mother Heart disease Hypertension CAD (coronary artery disease) Myocardial infarction Father Hypertension Heart disease Heart failure Surgical History History of tonsillectomy and adenoidectomy Social History household members: significant other Smoking Status: Former smoker how long ago did patient quit smoking: Quit ~ 3-4 months prior (fall 2023), smoked 1.5 ppd since teen until quit. alcohol intake: never substance use type: does not use ROS Constitutional Constitutional: Denies fatigue, fever(s), poor appetite, weight gain or weight loss Gastrointestinal Gastrointestinal: Denies belching, bloating, change in bowel habits, change in stool character, chewing difficulty, coffee ground emesis, constipation, cramping, diarrhea, dyspepsia, dysphagia, early satiety, excessive flatus, fecal incontinence, heartburn, hematemesis, hematochezia, hemorrhoids, loose stools, melena, nausea, odynophagia, rectal bleeding, tenesmus, vomiting or weight changes Physical Exam Const alert, oriented x3, no apparent distress and healthy appearing General Appearance: cooperative GI normal to inspection, nondistended, normoactive bowel sounds, soft to palpation, non-tender and non-distended Percussion: normal to percussion Rectal Exam: deferred Lab / Micro Data 02/17/25 05:27 02/17/25 05:27 Labs: Laboratory Results - last 24 hr 02/16/25 14:11: Direct Bilirubin 5.10 H, Lactate Dehydrogenase 273 H 02/16/25 20:02: PT 21.1 H, INR 1.8, Phosphorus 2.3 L, Magnesium 1.3 L 02/16/25 23:37: POC Glucose 216 H 02/17/25 05:27: WBC 8.5, RBC 2.57 L, Hgb 7.7 L, Hct 21.9 L, MCV 85.2, MCH 30.0, MCHC 35.2 D, RDW Std Deviation 51.1 H, RDW Coeff of Francis 19.0 H, Plt Count 90 L, MPV 11.7, Differential Comment SCANNED, PT 22.8 H, INR 2.0, Sodium 132 L, Potassium 3.6, Chloride 100, Carbon Dioxide 22.1, Anion Gap 10, BUN 11, Creatinine 1.16, Estim Creat Clear Calc 79.19, Est GFR (MDRD) Non-Af 73, BUN/Creatinine Ratio 9.7 L, Glucose 246 H, Calcium 7.3 L, Total Bilirubin 6.79 H, AST 99 H, ALT 46, Alkaline Phosphatase 278 H, Total Protein 5.3 L, Albumin 2.1 L, Globulin 3.2, Albumin/Globulin Ratio 0.7 L 02/17/25 11:19: POC Glucose 194 H Assessment & Plan Assessment/Plan (1) Chronic anemia: (2) Hyperammonemia: (3) Elevated liver enzymes: (4) Cirrhosis of liver with ascites: (5) Decompensated cirrhosis: PLAN: Plan Patient is a 59-year-old male who presented to [facility] ED on 02/16/2025 with abnormal labs. Worsening hyperbilirubinemia with mild hepatic encephalopathy in setting of decompensated BOYER cirrhosis with history of varices ? T. bili 7.2, direct bili 5.1, AST 109, ALT 51, alk phos 310, ammonia 88 on admit. Bilirubin notably is much more elevated than baseline for unclear reason. His INR is 2. I am concerned about decompensated liver disease. His current MELD is 26/Child-Gonzalez B which carries a 19.5% chance of mortality in the next 3 months. The predicted 6-month survival is 78%, and the 12-month survival is 71%. A MELD score of 26 is considered high and indicates a higher risk of . This could be result of compromised blood flow from his portal vein thrombosis. He will need to get anticoagulated for his portal vein thrombosis. He would also need ultrasound with Dopplers to look for signs of Budd-Chiari syndrome. Patient said is not drinking. He has a very poor prognosis. Charges/Coding Visit Charges Inpatient E&M: 89198 Init Hosp L3
--- NOTE | 2025-02-18 18:03 | CCN.REFER ---
PATIENT AGREEABLE TO CCN. HOME VISIT SCHEDULED FOR 02/23 @ 10 AM.
== END 2025-02-17 17:29 | disposition home or self-care (01) ==
LOC: ED 18:38 → MS3 02-17 05:24
PROVIDERS: Admitting Provider Hospitalist; Emergency Provider Emergency Medicine; PCP Nurse Practitioner Family; Visit Provider Internal Medicine
DX: K72.90 Hepatic failure, unspecified without coma (principal); K76.82 Hepatic encephalopathy; K76.6 Portal hypertension; K74.60 Unspecified cirrhosis of liver; E11.9 Type 2 diabetes mellitus without complications; Z79.4 Long term (current) use of insulin; I81 Portal vein thrombosis; I10 Essential (primary) hypertension; E72.20 Disorder of urea cycle metabolism, unspecified; E87.6 Hypokalemia; E78.5 Hyperlipidemia, unspecified; I95.89 Other hypotension; R18.8 Other ascites; G89.29 Other chronic pain; Z79.84 Long term (current) use of oral hypoglycemic drugs; Z87.891 Personal history of nicotine dependence; Z79.899 Other long term (current) drug therapy; D69.6 Thrombocytopenia, unspecified; R74.8 Abnormal levels of other serum enzymes; D64.9 Anemia, unspecified; Z86.718 Personal history of other venous thrombosis and embolism; K75.81 Nonalcoholic steatohepatitis (NASH); G47.33 Obstructive sleep apnea (adult) (pediatric); M54.9 Dorsalgia, unspecified; K43.9 Ventral hernia without obstruction or gangrene; R10.9 Unspecified abdominal pain
CPT/HCPCS: 36415; 74177; 80053; 80074; 82140; 82248; 82962; 83615; 83690; 83735; 84100; 85025; 85027; 85610; 94668; 96374; 96375; 99221; 99283; 99285; Q9967; A4216; G0378; J2405

== ENCOUNTER → 2025-02-16 | Outpatient (CLI) | payer MEDICAID, SELFPAY ==
[2025-02-16 15:13] LABS: Hematocrit 24.8 % (40-54); Hemoglobin 8.2 g/dL (13.0-16.5); Immature Granulocytes Count 0.020 X10^3/uL (0.0-0.0); Mean Corp Hgb Conc 33.1 g/dL (32-36); Mean Corpuscular Volume 87.3 fL (80-94); Mean Platelet Vol. 12.0 fl (6.2-12.0); NRBC Flagged by Analyzer 0 % (0-5); Platelet Count 106 K/mm3 (150-450); RBC Distribution Width CV 18.7 % (11.6-14.6); RBC Distribution Width SD 53.5 fl (35.1-43.9); Red Blood Count 2.84 M/mm3 (4.6-6.2); White Blood Count 8.5 K/mm3 (4.4-11.0)
[2025-02-16 16:08] LABS: AST(SGOT) 109 U/L (<=37); Alanine Aminotransfer ALT/SGPT 51 U/L (<=46); Albumin, Serum 2.3 g/dL (3.5-5.0); Alkaline Phosphatase 310 U/L (40-129); Anion Gap 12 (5-15); BUN 12 mg/dL (4-19); BUN/Creat Ratio 9.4 RATIO (10-20); Calcium,Total 7.8 mg/dL (7.6-11.0); Carbon Dioxide 24.1 mmol/L (21.0-32.0); Chloride 99 mmol/L (98-108); Globulin 3.5 g/dL (2.2-4.2); Glucose 250 mg/dL (70-99); Potassium 3.1 mmol/L (3.3-5.1)
[2025-02-16 17:00] LABS: Ammonia 88.0 umol/L (16-60)
--- OUTSIDE RECORDS SUMMARY | 2025-02-16 23:21 | XMS RPT_ITS | CCD ---
Author Organization [facility] Care Team Providers Care Crimp Setter Name Role Phone Sergey HERNANDEZ, Maurice Soria Primary Care Provider Care Physician, No Primary Primary Care Provider Unavailable Anni NOYOLA, Dr. Delgado Attending Provider Dr. Danny Hutton DO Emergency Provider Dr. Luis Carlos Anderson DO Emergency Provider Mone HERNANDEZ, Dr. Maria Guadalupe Carlson Admit Provider [phone] Mone HERNANDEZ, Dr. Maria Guadalupe Carlson Referring Provider Mone HERNANDEZ, Dr. Maria Guadalupe Carlson Other Provider [phone] Rick Carlin DO Attending Provider Erin HERNANDEZ, Dr. Rocha Other Provider Zelalem HERNANDEZ, Dr. Coker Other Provider Dr. Christian Abdi MD Other Provider Dr. Juarez Baird MD Other Provider Dr. Bola Meraz DO Attending Provider Dr. Bola Meraz DO Other Provider Víctor HERNANDEZ, Dr. Hill Alcaraz Other Provider [phone] Ashli HERNANDEZ, Dr. Aguilar Other Provider [phone] Missael HERNANDEZ, Dr. Cotton Other Provider Ashely HERNANDEZ, Dr. Foote Other Provider [phone] Cassandra HERNANDEZ, Dr. Garvin Other Provider Yamil HERNANDEZ, Dr. Solis Other Provider Rojas HERNANDEZ, Dr. Enriquez Other Provider [phone] Seble HERNANDEZ, Dr. Hernández Other Provider Desmond [...] Provider Jen NOYOLA, Dr. Ureña Attending Provider Dr. Rachel Joiner DO Emergency [...] Dr. Jae Ash DO Attending Provider Timbo NOYOLA Dr. Boone Other Provider FRANCESCOKarma DIANE Attending Provider FRANCESCOKarmaDIANE Referring Provider BILLKarmaDIANE Other Provider Bailee MECHANICAL COMMISSIONING ENGINEER-C, Jasmine Attending Provider Shaun HERNANDEZ, Dr. Campo Emergency Provider Caro DO, Dr. Alejandre Attending Provider Unav ailable Care Physician, No Primary Primary Care Provider Unavailable [facility], Dr. Delgado Attending Provider GeorgiLucero NOYOLA, [...] Provider Missael HERNANDEZ, Dr. Cotton Other Provider [phone] Ashely HERNANDEZ, Dr. Foote Other Provider Cassandra [...] Provider Mallorie HERNANDEZ, Dr. Kelly Other Provider [phone] Nuzhat NOYOLA, Dr. Cooper Other Provider Rosendo [...] Provider Nomi HERNANDEZ, Dr. Douglas Other Provider [phone] Dr. Anurag Irene MD Attending Provider Dr. Jae Ash DO Attending Provider Dr. Boone Izquierdo DO Other Provider DIANE CALLAHAN Attending Provider TREY CALLAHANA Referring Provider DIANE CALLAHAN Other Provider Bailee MECHANICAL COMMISSIONING ENGINEER-C, Jasmine Attending Provider Shaun HERNANDEZ, Dr. Campo Emergency Provider Shila HERNANDEZ, Dr. Buster Barr Other Provider Gio HERNANDEZ, Dr. Vázquez Attending Provider Dr. Hill Acuña MD Other Provider Unavailable Alize HERNANDEZ, Dr. Alejandre Other Provider Niles HERNANDEZ, Dr. Pinto Other Provider Nils HERNANDEZ, Dr. Das Other Provider Unavailable Saul HERNANDEZ, Dr. Seo Other Provider Field HERNANDEZ, Dr. Andre Other Provider Greg HERNANDEZ, Dr. Frances Other Provider Unavailable Belen HERNANDEZ, Dr. Soni Other Provider Dr. Scott Weston DO Other Provider Elie MECHANICAL COMMISSIONING ENGINEER-C, Yue Other Provider Dr. Hill Caro DO Referring Provider Unav ailable Shila HERNANDEZ, Dr. Buster Barr Attending Provider Dr. Buster Fuchs MD Referring Provider Dr. Hill Acuña MD Attending Provider Unavaila Dr. Kathie Martinez MD Other Provider Unavailable Primary Care Provider Unavailyanick Carlson MD, Dr. Kevin Emergency Provider Nilsa NOYOLA, Dr. Rowe Admit Provider Dr. Kathie Powers MD Admit Provider Tannhof MECHANICAL COMMISSIONING ENGINEER-C, Josy Primary Care Provider Tannhof MECHANICAL COMMISSIONING ENGINEER-C, Josy Attending Provider KATHIE POWERS Referring Unavailable DAY PRICE Admitting Unavailable YOUNG [...] Provider Kt NOYOLA, Dr. Plaza Attending Provider [phone] Kt NOYOLA, Dr. Plaza Other Provider Víctor HERNANDEZ, Dr. Hill Alcaraz Other Provider Ashli HERNANDEZ, Dr. Aguilar Other Provider Missael HERNANDEZ, Dr. Cotton Other Provider Ashely HERNANDEZ, Dr. Foote Other Provider Cassandra HERNANDEZ, Dr. Garvin Other Provider [phone] Dr. Will Lobo MD Other Provider [phone] Dr. Mina Xie MD Other Provider [phone] Seble HERNANDEZ, Dr. Hernández Other Provider Dr. Gwendolyn Logan MD Other [facility]arma Venegas MD, Dr. Whyte Other Provider Dr. Elver Mancilla MD Other Provider Angely HERNANDEZ, Dr. Silver Other Provider Dr. Mason Samano DO Other Provider Dr. Anel Casey MD Other Provider [phone] Robin Nobles MD Other Provider Dr. Kenneth Noland DO Other Provider Rosendo HERNANDEZ, Dr. Wesley Other Provider Dylan HERNANDEZ, Dr. Colon Other Provider Jeremi NOYOLA, Dr. Enriquez Emergency Provider Care Physician, No Primary Primary Care Provider Unavailable Erin HERNANDEZ, Dr. Rocha Other Provider Jen NOYOLA, Dr. Ureña Attending Provider Wei NOYOLA, Dr. Shook Attending Provider Dr. Roddy Reeves DO Emergency Provider Shila HERNANDEZ, Dr. Buster Barr Admit Provider Teto HERNANDEZ, Dr. Osborn Attending Provider Zelalem HERNANDEZ, Dr. Coker Other Provider Trinidad HERNANDEZ, Dr. Gonzales Other Provider Oli HERNANDEZ, Dr. Pizarro Other Provider Dr. Bola Meraz DO Attending Provider [phone] Bola Meraz DO Other Provider Víctor HERNANDEZ, Dr. Hill Alcaraz Other Provider Ashli HERNANDEZ, Dr. Aguilar Other Provider [phone] Missael HERNANDEZ, Dr. Cotton Other Provider Ashely HERNANDEZ, Dr. Foote Other Provider Cassandra HERNANDEZ, Dr. Garvin Other Provider [phone] Dr. Will Lobo MD Other Provider [phone] Dr. Mina Xie MD Other Provider [phone] Dr. Betty Pruett MD Other Provider Desmond HERNANDEZ, Dr. Snow Other [facility] karma Mosher MD, Dr. Douglas Other Provider Theo HERNANDEZ, Dr. Whyte Other Provider Dr. Elver Mancilla MD Other Provider [phone] Angely HERNANDEZ, Dr. Silver Other Provider Jazmyne DO, Dr. Cuevas Other Provider Carmela HERNANDEZ, Dr. [...] DO, Dr. Alejandre Admit Provider Unavail able Caro DO, Dr. Alejandre Other Provider Unavail able Abiodun HERNANDEZ, Dr. Foster Rivas Other Provider Dr. Jae Ash DO Attending Provider Dr. Jae Ash DO Other Provider [phone] Teto HERNANDEZ, Dr. Osborn Other Provider Dr. [...] Marques Primary Care Provider Timbo NOYOLA, Dr. Sohok Admit Provider Timbo DO, Dr. Shook Attending Provider Timbo NOYOLA, Dr. Shook Other Provider Ahmet DO, Dr. Vigil Attending Provider Timbo DO, Dr. Shook Attending Provider Jeremi DO, Dr. Enriquez Referring Provider Justin DO, Dr. Aldridge [facility]. Enriquez Other Provider John ROSA-CMar Attending Provider Presley HERNANDEZ, Dr. Marques Attending Provider Dr. Jerald Sherwood MD Referring Provider Niranjan Li Attending Unavailable Buster Fuchs Referring Unavailable Care Physician, No Primary Primary Care Unava ilable Hill Caro Admitting Unavailable John Paul Masterson Consulting Unavailable Christian Abdi Consulting Unavailable Juarez Baird Consulting Unavailable Bola Meraz Consulting Unavailable Hill Renee Consulting Unavailable Jeff Cornelius Consulting Unavailable Missael, Yury Consulting Unavailable Dary Lund Consulting Unavailab Bharathi Moore Consulting Unavailable Will Lobo Consulting Unavailable Mina Xie Consulting Unavailable Betty Pruett Consulting Unavailable AlGwendolyn veliz Consulting Unavailable MosherStella sims Consulting Unavailable Theo, Pato Consulting Unavailable Irukstephani, Elver Consulting Unavailable Angely, Nadeem Consulting Unavailable Dhesi, Mason Consulting Unavailable Anel Casey Consulting Unavailable Robin Nobles Consulting Unavailable Kenneth Noland Consulting Unavailable Rosendo, Lupillo Consulting Unavailable Young Richardson Consulting Unavailable Hill Caro Consulting Unavailable Foster Rascon Consulting Unavailable Buster Fuchs Consulting Unavailable Buster Fuchs Attending Unavailable Hill Caro Consulting Unavailable Boone Izquierdo Attending Unavailable Hill Caro Admitting Unavailable Care Physician, No Primary Primary Care Unava ilable Anurag Irene Consulting Unavailable Jae Ash Consulting Unavailable Thai Thurston Consulting Unavailable Erin, Jayaprakas Consulting Unavailable Foster Rascon Consulting Unavailable Kathie Powers Consulting Unavailable Kathie Powers Admitting Unavailable Care Physician, No Primary Primary Care Unava ilable Hill Acuña Attending Unavailable Thai Thurston Consulting Unavailable Niranjan Li Attending Unavailable Maria Guadalupe Shore Referring Unavailable Maria Guadalupe Shore Admitting Unavailable John Paul Masterson Consulting Unavailable Care Physician, No Primary Primary Care Unava ilable Christian Abdi Consulting Unavailable Juarez Baird Consulting Unavailable Bola Meraz Consulting Unavailable Hill Renee Consulting Unavailable Jeff Cornelius Consulting Unavailable Yury Canas Consulting Unavailable Dary Lund Consulting UnavailBharathi East Consulting Unavailable Will Lobo Consulting Unavailable Mina Xie Consulting Unavailable Betty Pruett Consulting Unavailable Gwendolyn Logan Consulting Unavailable Theo Pato Consulting Unavailable Elver Mancilla Consulting Unavailable Angely, Nadeem Consulting Unavailable Mason Samano Consulting Unavailable Anel Casey Consulting Unavailable Robin Nobles Consulting Unavailable Kenneth Noland Consulting Unavailable Rima Robbinskram Consulting Unavailable Young Richardson Consulting Unavailable Maria Guadalupe Shore Consulting Unavailable Erin, Jayaindianakas Consulting Unavailable Rick Carlin Consulting Unavailable Bola Meraz Attending Unavailable Hill Acuña Attending Unavailable Hill Acuña Consulting Unavailable Jae Ash Admitting Unavailable Jae Ash Consulting Unavailable Care Physician, No Primary Primary Care Unava ilable Anurag Irene Attending Unavailable Buster Fuchs Attending Unavailable Buster Fuchs Consulting Unavailable Buster Fuchs Admitting Unavailable Josy Elias Primary Care Unavailable Hill Acuña Attending Unavailable Hill Acuña Consulting Unavailable Jae Ash Attending Unavailable Nilsa, Jae Admitting Unavailable Care Physician, No Primary Primary Care Unava ilable Jae Ash Consulting Unavailable Jae Ash Consulting Unavailable Nilsa, Jae Admitting Unavailable Care Physician, No Primary Primary Care Unava ilable Anurag Irene Attending Unavailable Anurag Irene Consulting Unavailable Kathie Powers Consulting Unavailable Gio, Kathie Admitting Unavailable Kathie Powers Attending Unavailable Care Physician, No Primary Primary Care Unava ilable Hill Acuña Attending Unavailable Hill Acuña Consulting Unavailable Thai Thurston Consulting Unavailable Teto Anurag Attending Unavailable Teto, Anurag Consulting Unavailable Jae Ash Attending Unavailable Jae Ash Admitting Unavailable Jerald Sherwood Primary Care Unavailable Care Physician, No Primary Primary Care Unava ilable Hill Caro Admitting Unavailable Hill Caro Consulting Unavailable Kathie Powers Attending Unavailable Foster Rascon Consulting Unavailable Buster Fuchs Consulting Unavailable Hill Acuña Consulting Unavailable Hill Herrmann Consulting Unavailable Blair Cage Consulting Unavailable Thiago Wray Consulting Unavailable Gabbi Hughes Consulting Unavailable Thai Godfrey Consulting Unavailable Juan Daniel Garza Consulting Unavailable Zachariah Glover Consulting Unavailable Sctot Weston Consulting Unavailable Elie MECHANICAL COMMISSIONING ENGINEER, Yue Consulting Unavailable Yaritza Leo Attending Unavailable Boone Izquierdo Consulting Unavailable Boone Izquierdo Admitting Unavailable Jerald Sherwood Primary Care Unavailable Care Physician, No Primary Primary Care Unava ilable PESEK, TOD1 Attending Unavailable PESEK, TOD1 Referring Unavailable Care Physician, No Primary Primary Care Unava ilable PESEK, TOD1 Consulting Unavailable PESEK, TOD1 Referring Unavailable Bailee MECHANICAL COMMISSIONING ENGINEER, Jasmine Attending Unavailable Kathie Powers Attending Unavailable Kathie Powers Consulting Unavailable Rick Carlin Attending Unavailable Maria Guadalupe Shore Referring Unavailable Maria Guadalupe Shore Consulting Unavailable Maria Guadalupe Shore Admitting Unavailable Care Physician, No Primary Primary Care Unava ilable Rick Carlin Attending Unavailable Josefina Khan Consulting Unavailable Yaritza Leo Consulting Unavailable Yaritza Leo Admitting Unavailable Anurag Irene Attending Unavailable Josy Elias Primary Care Unavailable Jefferson Malave Consulting Unavailable Aleyda Bautista Consulting Unavailable Cielo Tovar Consulting Unavailable Care Physician, No Primary Primary Care Unava ilable PESEK, TOD1 Attending Unavailable PESEK, TOD1 Referring Unavailable AndMina coronado Attending Unavailable Tannho, Josy Primary Care Unavailable AndMina coronado Attending Unavailable Sherwood, Jerald Primary Care Unavailable Sherwood, Jerald Primary Care Unavailable Luis Carlos Anderson Attending Unavailable Andes Mina Referring Unavailable AndMina coronado Attending Unavailable Sherwood, Jerald Primary Care Unavailable Sherwood, Jerald Attending Unavailable Sherwood, Jerald Referring Unavailable Sherwood, Jerald Primary Care Unavailable Care Physician, No Primary Primary Care Unava ilable Danny Hutton Attending UnavailBoone Mendez Attending Unavailable Tannho, Josy Primary Care Unavailable Maria Guadalupe Shore Attending Unavailable iHll Herrmann Consulting Unavailable Blair Cage Consulting Unavailable Thiago Wray Consulting Unavailable Gabbi Hughes Consulting Unavailable Thai Godfrey Consulting Unavailable Juan Daniel Garza Consulting Unavailable Zachariah Glover Consulting Unavailable Scott Weston Consulting Unavailable Elie MECHANICAL COMMISSIONING ENGINEER, Yue Consulting Unavailable Tannho, Josy Primary Care Unavailable Josy Elias Attending Unavailable Buster Fuchs Consulting Unavailable Beau Fuchsolas F Admitting Unavailable Tannhof, Josy Primary Care Unavailable Hill Acuña Attending Unavailable [facility] Primary Care Unavailable Tannhof Josy Attending Unavailable Tannhof, Josy Referring Unavailable AndMina coronado Consulting Unavailable Sherwood, Jerald Primary Care Unavailable AndMagen coronadoin Referring Unavailable Mar Lopez Attending Unavailable [facility], Josy Primary Care Unavailable Yaritza Leo Admitting Unavailable Anurag Irene Attending Unavailable Yaritza Leo Consulting Unavailable Jefferson Malave Consulting Unavailable Aleyda Bautista Consulting Unavailable Cielo Tovar Consulting Unavailable Anurag Irene Consulting Unavailable Boone Izquierdo Attending Unavailable Sherwood, Jerald Primary Care Unavailable Yaritza Leo Attending Unavailable Boone Izquierdo Consulting Unavailable Boone Izquierdo Admitting Unavailable Sherwood, Jerald Primary Care Unavailable Yaritza Leo Consulting Unavailable Cielo Tovar Attending Unavailable Hill Caro Attending Unavailable Hill Caro Admitting Unavailable Foster Rascon Consulting Unavailable Care Physician, No Primary Primary Care Unava ilable Hill Caro Consulting Unavailable Anurag Irene Attending Unavailable John Paul Masterson Consulting Unavailable Abdi, Christian Consulting Unavailable Juarez Baird Consulting Unavailable Bola Meraz Consulting Unavailable Hill Renee Consulting Unavailable Jeff Cornelius Consulting Unavailable Missael, Yury Consulting Unavailable Habtegebriel, Dary Consulting Unavailab le Dand, Bharathi Consulting Unavailable Lobo, Will Consulting Unavailable Xie, Mina Consulting Unavailable Seble, Betty Consulting Unavailable Aljundi, Lamia Consulting Unavailable Mosher, Stella Consulting Unavailable Theo, Pato Consulting Unavailable Irukulla, Elver Consulting Unavailable Angely, Nadeem Consulting Unavailable Dhesi, Mason Consulting Unavailable Casey, Sujoy Consulting Unavailable Bloomery, Soleyah Consulting Unavailable Fernstrom, Kenneth Consulting Unavailable Rosendo, Lupillo Consulting Unavailable Young Richardson Consulting Unavailable Thai Thurston Consulting Unavailable Yomi Khans Consulting Unavailable Anurag Irene Consulting Unavailable Bola Meraz Attending Unavailable Anurag Irene Referring Unavailable Boone Izquierdo Attending Unavailable Jae Ash Consulting Unavailable Boone Izquierdo Consulting Unavailable Yaritza Leo Attending Unavailable Cielo Tovar Referring Unavailable Bola Meraz Attending Unavailable John Paul Masterson Consulting Unavailable Abdi, Christian Consulting Unavailable Juarez Baird Consulting Unavailable Bola Meraz Consulting Unavailable Hill Renee Consulting Unavailable Jeff Cornelius Consulting Unavailable Missael, Yury Consulting Unavailable Habtegebrconnie, Dary Consulting Unavailab le Dand, Bharathi Consulting Unavailable Lobo, Will Consulting Unavailable Rojas Mina Consulting Unavailable Seble, Betty Consulting Unavailable Aljundi, Lamia Consulting Unavailable Mosher, Stella Consulting Unavailable Theo, Pato Consulting Unavailable Irukulla, Elver Consulting Unavailable Angely, Nadeem Consulting Unavailable Dhesi, Mason Consulting Unavailable Casey, Sujoy Consulting Unavailable Bloomery, Soleyah Consulting Unavailable Mosestrfrancisca, Kenneth Consulting Unavailable Rosendo, Lupillo Consulting Unavailable Young Richardson Consulting Unavailable Jefferson Mlaave Attending Unavailable Teto, Anurag Referring Unavailable Jae Ash Consulting Unavailable Jae Ash Attending Unavailable Hill Caro Attending Unavailable Hill Caro Referring Unavailable Bola Meraz Attending Unavailable Medications Current Medications Medication Drug Class(es) Dates Sig (Normalized) Sig (Original) acetaminophen 500 mg oral tablet (20 sources) Start: 09-14-2024 End: 10-28-2024 Acetaminophen 50 0 mg cap Take by mouth. Active ascorbic acid 500 mg oral tablet (13 sources) Vitamin C Start: 11-25-2024 atorvastatin 40 mg oral tablet (14 sources) HMG-CoA Reductase Inhibitor Start: 11-21-2024 calcium [...] 10/04/2024 11/03/2024 Active take 2 tablets by [facility] once daily furosemide (LASIX) 20 mg tablet Take 40 mg by mouth once daily. Suspended linezolid 600 mg oral tablet (4 sources) Oxazolidinone Antibacterial Start: 01-31-2025 magnesium oxide 400 mg oral tablet (14 sources) Start: 11-21-2024 24 hr metFORMIN hydrochlorid e 500 mg extended release oral tablet (17 sources) Biguanide Start: 11-21-2024 Start: 11-18-2024 take 1 tablet by bipin once daily at dinner metFORMIN ER (GLUMETZA) 500 mg 24 hr tablet Take 1 tablet by mouth daily with dinner. 90 tablet 11 11/18/2024 Active midodrine hydrochloride 10 m g oral tablet (20 sources) alpha-Adrenergic Agonist Start: 11-25-2024 Start: 09-02-2024 End: 10-28-2024 take 1 tablet by [facility] three times daily midodrine (Proamatine) 5 mg tablet Take 1 tablet (5 mg) by mouth 3 times daily (morning, midday, late afternoon). Active omeprazole 20 mg delayed rel ease oral capsule (5 sources) Proton Pump Inhibitor Start: 01-28-2025 oxyCODONE hydrochloride 5 mg oral tablet (16 sources) Opioid Agonist Start: 02-08-2025 Start: 01-21-2025 End: 01-28-2025 Start: 10-04-2024 End: 10-04-2024 take 5 mg by mouth once as needed for pain 5 mg, oral, Once, On Fri10/04/24 at 1905, For 1 dose, If ordered PRN for pain, nurse is permitted to administer this medication for higher pain scores based on patient preference? Yes take 1 capsule by [facility] every six hours as needed oxyCODONE (Oxy-IR) [...] 09-02-2024 sodium bicarbonate 650 mg oral tablet (16 sources) Start: 11-21-2024 Start: 11-18-2024 End: 12-18-2024 take 1 tablet by mouth twice daily sodium bicarbonate 650 mg tablet 1 tablet by ORAL/FEEDING TUBE route two times a day. 60 tablet 11/18/2024 12/18/2024 Active spironolactone 25 mg oral ta blet (20 sources) Aldosterone Antagonist Start: 01-21-2025 Start: 01-21-2025 Start: 11-21-2024 End: 01-21-2025 Start: 11-18-2024 take 1 tablet by bipin once daily spironolactone (ALDACTONE) 50 mg tablet [...] Active zinc sulfate 220 mg oral tablet (17 sources) Start: 11-21-2024 Start: 11-18-2024 take 1 capsule by mo [facility] once daily zinc sulfate 220 mg [...] / HYDROcodone bitartrate 5 mg oral tablet (17 sources) Opioid Agonist Start: 09-02-2024 End: 09-14-2024 Start: 09-02-2024 End: 09-14-2024 Hydrocodone-Acetaminophen 5- 325 mg Tablet Discontinued 1 {tbl} PO EVERY 4 HOURS NEEDED as needed for Pain Score 1-10 30 7 September 02, 2024 September 14, 2024 6:37pm apixaban 5 mg oral tablet (14 sources) Factor Xa Inhibitor Start: 11-21-2024 End: 11-25-2024 cephalexin 500 mg oral capsu le (10 sources) Cephalosporin Antibacterial Start: 12-30-2024 End: 01-05-2025 doxycycline monohydrate 100 mg oral capsule (17 sources) Tetracycline-class Drug Start: 09-14-2024 End: 10-28-2024 0.8 ml enoxaparin sodium 150 mg/ml prefilled syringe (17 sources) Low Molecular Weight Heparin Start: 11-21-2024 End: 12-30-2024 Start: 11-18-2024 inject 100 mg by sub cutaneous injection every twelve hours enoxaparin (LOVENOX) 120 mg/0.8 mL injection Inject 99 mg subcutaneously every 12 hours. Inject 0.7 mL subcutaneously every 12 hours 48 mL 2 11/18/2024 Active fluconazole 200 mg oral tabl et (16 sources) Azole Antifungal Start: 11-18-2024 End: 11-27-2024 ibuprofen 800 mg oral tablet (20 sources) Nonsteroidal Anti-inflammatory Drug Start: 10-28-2024 End: 11-25-2024 take 1 tablet by bipin th every eight hours as needed ibuprofen (MOTRIN) 800 mg tablet Take 80 0 mg by mouth every 8 hours as needed for fever (specify temp.) or pain. Suspended imiquimod 50 mg/ml topical cream (13 sources) Start: 12-02-2024 End: 12-30-2024 Insulin Glargine-Yfgn [...] (20 sources) Quinolone Antimicrobial Start: 11-25-2024 End: 06-01-2025 lidocaine 0.05 mg/mg medicat ed patch (20 [...] 1 dose nadolol 20 mg oral tablet (8 sources) beta-Adrenergic Tracey Start: 01-02-2025 End: 01-21-2025 [...] daily. Suspended vancomycin 125 mg oral capsu le (13 sources) Glycopeptide Antibacterial Start: 12-02-2024 End: 01-05-2025 Problems Active Problems Problem Classification Problem Date Documented Da te Episodic/Chronic Abdominal hernia (20 sources) Umbilical hernia; Translations: [Umbilical hernia without [...] [Alcoholic cirrhosis of liver with ascites] Onset: 02-16-2025 Chronic Chronic kidney disease (11 sources) Chronic [...] Translations: [Anemia, unspecified type] Onset: 11-11-2024 Episodic Deficiency and other anemia (2 sources) Chronic anemia; Translations: [Anemia, unspecified] 02-16-2025 Episodic Diabetes mellitus without complication (13 sources) Insulin treated type 2 diabetes mellitus; Translations: [Type 2 diabetes mellitus without complications] 12-30-2024 Chronic Diabetes mellitus without complication (10 sources) Hyperglycemia; Translations: [Hyperglycemia, unspecified] 12-30-2024 Episodic [...] Onset: 11-11-2024 09-05-2024 Episodic Nonspecific chest pain (11 sources) Chest pain; Translations: [Chest pain, unspecified] [...] and ureter, unspecified] 09-23-2024 Episodic Other fractures (14 sources) Compression fracture of thoracic spine; Translations: [...] Onset: 11-11-2024 11-11-2024 Chronic Other liver diseases (1 source) Liver disease, unspecified; Translations: [Liver disease, unspecified] Onset: 02-16-2025 Chronic Other liver diseases (20 sources) Hepatic encephalopathy; Translations: [Hepatic encephalopathy] Onset: 01-31-2025 09-10-2024 Episodic Other liver diseases (2 sources) Elevated liver enzymes level; Translations: [Abnormal levels of other serum enzymes] 02-16-2025 Episodic Other liver diseases (1 source) Hepatic failure, unspecified without coma; Translations: [Hepatic failure, unspecified without coma] Onset: 02-16-2025 Episodic Other nervous system disorders (20 sources) [...] Chronic Other nutritional; endocrine; and metabolic disorders (2 sources) Hyperammonemia; Translations: [Disorder of urea cycle metabolism, unspecified] 02-16-2025 Chronic Other nutritional; endocrine; and metabolic disorders (1 source) Obesity, unspecified; Translations: [Obesity, unspecified] Onset: 09-17-2024 Chronic Other nutritional; endocrine; and metabolic disorders (2 sources) H/O: diabetes mellitus; Translations: [Personal history of other endocrine, nutritional and metabolic disease] 02-16-2025 Episodic Other screening for suspected conditions (not mental [...] Onset: 09-10-2024 09-23-2024 Episodic Superficial injury; contusion (17 sources) Contusion of lower back; Translations: [Contusion [...] Test Name Value Interpretation Reference Range Facility Absolute lymphocyte countOrd ered By: Jerald Sherwood on 02-16-2025 Lymphocytes Auto (Unsp spec) [#/Vol] 1.28 10*3/uL 0.83-4.51 [facility] Anion gap in Serum or Plasma Ordered By: Jerald Sherwood on 02-16-2025 Anion gap [Moles/Vol] 12 mmol/L 5-15 [facility] Automated lymphocyte count a s percentage of total leukocytesOrdered By: Jerald Sherwood on 02-16-2025 Lymphocytes/100 WBC Auto (Unsp spec) 15.1 % Low 19-41 [facility] BUN/creatinine ratioOrdered By: Jerald Sherwood on 02-16-2025 Urea nitrogen/Creatinine [Mass ratio] 9.4 mg/mg Low 10-20 [facility] Basophil percentageOrdered B y: Jerald Sherwood on 02-16-2025 Basophils/100 WBC (Bld) 0.5 % 0-1 [facility] Bilirubin directOrdered By: Jae Ash on 02-16-2025 Bilirubin.direct [Mass/Vol] 5.10 mg/dL High 0.00-0.30 [facility] Bilirubin, Directon 02-17-20 25 Bilirubin.direct [Mass/Vol] 5.10 mg/dL High 0.00-0.30 [facility] Comment on above: Performed By: #### L 504.2610, L501.4700 ####[facility] [address] [place], [place], [id number] Bilirubin, totalOrdered By: Jerald Sherwood on 02-16-2025 Bilirubin [Mass/Vol] 7.29 mg/dL High 0.00-1.30 [facility] CBC W/Diff, Automatedon 02-01 Absolute Lymph 1.28 X10 3/uL Normal 0.83-4.51 [facility] Comment on above: Performed By: #### L 100.0100, L500.4050, L503.5510 ####[facility] [address] [place], [address] Absolute Neut 5.7 X10 3/uL Normal 2.0-7.7 [facility] Comment on above: Performed By: #### L 100.0100, L500.4050, L503.5510 ####[facility] [address] [place], [address] Basophils/100 WBC (Bld) 0.5 % Normal 0-1 [facility] Comment on above: Performed By: #### L 100.0100, L500.4050, L503.5510 ####[facility] [address] [place], [address] Eosinophils/100 WBC (Bld) 5.4 % High 0-5 [facility] Comment on above: Performed By: #### L 100.0100, L500.4050, L503.5510 ####[facility] [address] [place], [address] Erythrocyte distribution width (RBC) [Ratio] 18.7 % High 11.6-14.6 [facility] Comment on above: Performed By: #### L 100.0100, L500.4050, L503.5510 ####[facility] [address] [place], [address] Hematocrit (Bld) [Volume fraction] 24.8 % Low 40-54 [facility] Comment on above: Performed By: #### L 100.0100, L500.4050, L503.5510 ####[facility] [address] [place], [address] Hemoglobin (Bld) [Mass/Vol] 8.2 g/dL Low 13.0-16.5 [facility] Comment on above: Performed By: #### L 100.0100, L500.4050, L503.5510 ####[facility] [address] [place], [address] IG% 0.200 Normal 0.0-0.9 [facility] Comment on above: Result Comment: IG% - Immature Granulocytes (promyelocytes, myelocytes andmetamyelocytes) > 1% indicates that a LEFT SHIFT is Present. Performed By: #### L 100.0100, L500.4050, L503.5510 ####[facility] [address] [place], [address] Lymphocytes/100 WBC (Bld) 15.1 % Low 19-41 [facility] Comment on above: Performed By: #### L 100.0100, L500.4050, L503.5510 ####[facility] [address] [place], [address] MCH (RBC) [Entitic mass] 28.9 pg Normal 27.0-32.0 [facility] Comment on above: Performed By: #### L 100.0100, L500.4050, L503.5510 ####[facility] [address] [place], [address] MCHC (RBC) [Mass/Vol] 33.1 g/dL Normal 32-36 [facility] Comment on above: Performed By: #### L 100.0100, L500.4050, L503.5510 ####[facility] [address] [place], [address] MCV (RBC) [Entitic vol] 87.3 fL Normal 80-94 [facility] Comment on above: Performed By: #### L 100.0100, L500.4050, L503.5510 ####[facility] [address] [place], [address] Monocytes/100 WBC (Bld) 11.7 % High 0-10 [facility] Comment on above: Performed By: #### L 100.0100, L500.4050, L503.5510 ####[facility] [address] [place], [address] Neutrophils/100 WBC (Bld) 67.1 % Normal 47-70 [facility] Comment on above: Performed By: #### L 100.0100, L500.4050, L503.5510 ####[facility] [address] [place], [address] Nucleated RBC (Bld) [#/Vol] 0 10*3/uL Normal 0-5 [facility] Comment on above: Performed By: #### L 100.0100, L500.4050, L503.5510 ####[facility] [address] [place], [address] Platelet mean volume (Bld) [Entitic vol] 12.0 fL Normal 6.2-12.0 [facility] Comment on above: Performed By: #### L 100.0100, L500.4050, L503.5510 ####[facility] [address] [place], [address] Platelets (Bld) [#/Vol] 106 10*3/uL Low 150-450 [facility] Comment on above: Performed By: #### L 100.0100, L500.4050, L503.5510 ####[facility] [address] [place], [address] RBC (Bld) [#/Vol] 2.84 10*6/uL Low 4.6-6.2 [facility] Comment on above: Performed By: #### L 100.0100, L500.4050, L503.5510 ####[facility] [address] [place], [address] RDW SD 53.5 fl High 35.1-43.9 [facility] Comment on above: Performed By: #### L 100.0100, L500.4050, L503.5510 ####[facility] [address] [place], [address] WBC (Bld) [#/Vol] 8.5 10*3/uL Normal 4.4-11.[address] [facility] Comment on above: Performed By: #### L 100.0100, L500.4050, L503.5510 ####[facility] [address] [place], [address] Carbon dioxide, total [Moles /volume] in Central venous bloodOrdered By: Jerald Sherwood on 02-16-2025 CO2 [Moles/Vol] 24.1 mmol/L 21.0-32.0 [facility] Chloride assayOrdered By: Paulette Sherwood on 02-16-2025 Chloride [Moles/Vol] 99 mmol/L 98-108 [facility] Comprehensive Metabolic Prof ilon 02-16-2025 Albumin [Mass/Vol] 2.3 g/dL Low 3.5-5.[address] [facility] Comment on above: Performed By: #### L 100.0100, L500.4050, L503.5510 ####[facility] [address] [place], [address] Albumin/Globulin [Mass ratio] 0.7 {ratio} Low 0.9-2.4 [facility] Comment on above: Performed By: #### L 100.0100, L500.4050, L503.5510 ####[facility] [address] [place], [address] ALK PHOS 310 U/L High 40-129 [facility] Comment on above: Performed By: #### L 100.0100, L500.4050, L503.5510 ####[facility] [address] [place], [address] ALT [Catalytic activity/Vol] 51 U/L High <=46 [facility] Comment on above: Performed By: #### L 100.0100, L500.4050, L503.5510 ####[facility] [address] [place], [address] AST [Catalytic activity/Vol] 109 U/L High <=37 [facility] Comment on above: Performed By: #### L 100.0100, L500.4050, L503.5510 ####[facility] [address] [place], [address] Bilirubin [Mass/Vol] 7.29 mg/dL High 0.00-1.30 [facility] Comment on above: Performed By: #### L 100.0100, L500.4050, L503.5510 ####[facility] [address] [place], [address] BUN/CRE 9.4 RATIO Low 10-20 [facility] Comment on above: Performed By: #### L 100.0100, L500.4050, L503.5510 ####[facility] [address] [place], [address] Calcium [Mass/Vol] 7.8 mg/dL Normal 7.6-11.[address] [facility] Comment on above: Performed By: #### L 100.0100, L500.4050, L503.5510 ####[facility] [address] [place], [address] Chloride [Moles/Vol] 99 mmol/L Normal 98-108 [facility] Comment on above: Performed By: #### L 100.0100, L500.4050, L503.5510 ####[facility] [address] [place], [address] CO2 [Moles/Vol] 24.1 mmol/L Normal 21.0-32.0 [facility] Comment on above: Performed By: #### L 100.0100, L500.4050, L503.5510 ####[facility] [address] [place], [address] Creatinine [Mass/Vol] 1.30 mg/dL High 0.70-1.20 [facility] Comment on above: Result Comment: Icte daquan present, Results may be affected. Performed By: #### L 100.0100, L500.4050, L503.5510 ####[facility] [address] [place], [address] GAP 12 Normal 5-15 [facility] Comment on above: Performed By: #### L 100.0100, L500.4050, L503.5510 ####[facility] [address] [place], [address] GFR/1.73 sq M.predicted among non-blacks MDRD (S/P/Bld) [Vol rate/Area] 64 mL/min/{1.73_m2} Normal >60 [facility] Comment on above: Result Comment: mL/m in/1.73m2 CKD-EPI Creatinine Equation (2020) Performed By: #### L 100.0100, L500.4050, L503.5510 ####[facility] [address] [place], [address] Globulin (S) [Mass/Vol] 3.5 g/dL Normal 2.2-4.2 [place] Comment on above: Performed By: #### L 100.0100, L500.4050, L503.5510 ####[facility] [address] [place], [address] Glucose [Mass/Vol] 250 mg/dL High 70-[address] [facility] Comment on above: Performed By: #### L 100.0100, L500.4050, L503.5510 ####[facility] [address] [place], [address] Potassium [Moles/Vol] 3.1 mmol/L Low 3.3-5.1 [facility] Comment on above: Performed By: #### L 100.0100, L500.4050, L503.5510 ####[facility] [address] [place], [address] Sodium [Moles/Vol] 135 mmol/L Normal 133-[address] [facility] Comment on above: Performed By: #### L 100.0100, L500.4050, L503.5510 ####[facility] [address] [place], [address] T PROT 5.8 g/dL Low 5.9-8.4 [facility] Comment on above: Performed By: #### L 100.0100, L500.4050, L503.5510 ####[facility] [address] [place], [address] Urea nitrogen [Mass/Vol] 12 mg/dL Normal 4-19 [facility] Comment on above: Performed By: #### L 100.0100, L500.4050, L503.5510 ####[facility] [address] [place], [address] Emergency Department Summary on 02-16-2025 Emergency Department Summary Normal [facility] Eosinophil percentageOrdered By: Jerald Sherwood on 02-16-2025 Eosinophils/100 WBC (Bld) 5.4 % High 0-5 [facility] Erythrocyte distribution wid th ratioOrdered By: Jerald Sherwood on 02-16-2025 Erythrocyte distribution width (RBC) [Ratio] 18.7 % High 11.6-14.6 [facility] Erythrocyte distribution wid th standard deviationOrdered By: Jerald Sherwood on 02-16-2025 Erythrocyte distribution width (RBC) [Ratio] 53.5 fl High 35.1-43.9 [facility] Glomerular filtration rate ( GFR) estimation/1.73 sq m using serum, plasma, or whole bOrdered By: Jerald Sherwood on 02-16-2025 GFR/1.73 sq M.predicted among non-blacks MDRD (S/P/Bld) [Vol rate/Area] 64 mL/min/{1.73_m2} >60 [facility] H AND P Exam - Hospitaliston 02-16-2025 H&P Exam - Hospitalist Normal [facility] Hematocrit Auto (Bld) [Volum e fraction]Ordered By: Jerald Sherwood on 02-16-2025 Hematocrit (Bld) [Volume fraction] 24.8 % Low 40-54 [facility] Hemoglobin measurementOrdere d By: Jerald Sherwood on 02-16-2025 Hemoglobin (Bld) [Mass/Vol] 8.2 g/dL Low 13.0-16.5 [facility] Immature granulocytes/100 WB C Auto (Bld)Ordered By: Jerald Sherwood on 02-16-2025 Immature granulocytes/100 WBC (Bld) 0.200 % 0.0-0.9 [facility] LDHon 02-16-2025 LDH 273 U/L High 87-241 [facility] Comment on above: Performed By: #### L 504.2610, L501.4700 ####[facility] [address] [place], [place], [id number] MCV (mean corpuscular volume ) determinationOrdered By: Jerald Sherwood on 02-16-2025 MCV (RBC) [Entitic vol] 87.3 fL 80-94 [facility] Magnesiumon 02-16-2025 Magnesium [Mass/Vol] 1.3 mg/dL Low 1.5-2.2 [facility] Comment on above: Performed By: #### L 501.2300, L501.5200 ####[facility] [address] [place], [place], [id number] Mean corpuscular hemoglobin (MCH) determinationOrdered By: Jerald Sherwood on 02-16-2025 MCH (RBC) [Entitic mass] 28.9 pg 27.0-32.0 [facility] Monocyte percentageOrdered B y: Jerald Sherwood on 02-16-2025 Monocytes/100 WBC (Bld) 11.7 % High 0-10 [facility] Neutrophil percentageOrdered By: Jerald Sherwood on 02-16-2025 Neutrophils/100 WBC (Bld) 67.1 % 47-70 [facility] No Panel InformationOrdered By: Jerald Sherwood on 02-16-2025 109 U/L High <38 [facility] Phosphoruson 02-16-2025 Phosphate [Mass/Vol] 2.3 mg/dL Low 2.7-4.5 [facility] Comment on above: Performed By: #### L 501.2300, L501.5200 ####[facility] [address] [place], [place], [id number] Platelet countOrdered By: Paulette Sherwood on 02-16-2025 Platelets (Bld) [#/Vol] 106 10*3/uL Low 150-450 [facility] Potassium measurement (mass/ volume)Ordered By: Jerald Sherwood on 02-16-2025 Potassium (Unsp spec) [Mass/Vol] 3.1 mmol/L Low 3.3-5.1 [facility] Prothrombin Time w/INRon INR Coag (PPP) [Relative time] 1.8 {INR} Normal [facility] Comment on above: Performed By: #### L 300.3900 ####[facility] [address] [place], [address] PT Coag (PPP) [Time] 21.1 s High 11.7-14.9 [facility] Comment on above: Performed By: #### L 300.3900 ####[facility] [address] [place], [place], [id number] RBC Auto (Bld) [#/Vol]Ordere d By: Jerald Sherwood on 02-16-2025 RBC (Bld) [#/Vol] 2.84 10*6/uL Low 4.6-6.2 [facility] Serum creatinine measurement (mass/volume)Ordered By: Jerald Sherwood on 02-16-2025 Creatinine [Mass/Vol] 1.30 mg/dL High 0.70-1.20 [facility] Serum globulin measurementOr dered By: Jerald Sherwood on 02-16-2025 Globulin (S) [Mass/Vol] 3.5 g/dL 2.2-4.2 [place] Serum glucose measurement (m ass/volume)Ordered By: Jerald Sherwood on 02-16-2025 Glucose [Mass/Vol] 250 mg/dL High 70-[address] [facility] Serum or plasma alanine thomas otransferase (ALT) measurementOrdered By: Jerald Sherwood on 02-16-2025 ALT [Catalytic activity/Vol] 51 U/L High <47 [facility] Serum or plasma albumin roosevelt urement (mass/volume)Ordered By: Jerald Sherwood on 02-16-2025 Albumin [Mass/Vol] 2.3 g/dL Low 3.5-5.[address] [facility] Serum or plasma albumin/glob ulin mass ratioOrdered By: Jerald Sherwood on 02-16-2025 Albumin/Globulin [Mass ratio] 0.7 {ratio} Low 0.9-2.4 [facility] Serum or plasma alkaline kendrick sphatase measurementOrdered By: Jerald Sherwood on 02-16-2025 ALP [Catalytic activity/Vol] 310 U/L High 40-129 [facility] Serum or plasma calcium roosevelt urement (mass/volume)Ordered By: Jerald Sherwood on 02-16-2025 Calcium [Mass/Vol] 7.8 mg/dL 7.6-11.[address] [facility] Serum or plasma urea nitroge n measurement (mass/volume)Ordered By: Jerald Sherwood on 02-16-2025 Urea nitrogen [Mass/Vol] 12 mg/dL 4-19 [facility] Sodium levelOrdered By: Jerald Sherwood on 02-16-2025 Sodium [Moles/Vol] 135 mmol/L 133-[address] [facility] Total proteinOrdered By: Candie Sherwood on 02-16-2025 Protein [Mass/Vol] 5.8 g/dL Low 5.9-8.[address] [facility] Venous blood ammonia measure mentOrdered By: Jerald Sherwood on 02-16-2025 Ammonia (P) [Moles/Vol] 88.0 umol/L High 16-60 [facility] Comment on above: Performed By: #### L 100.0100, L500.4050, L503.5510 ####[facility] [address] [place], [address] White blood cell (WBC) count Ordered By: Jerald Sherwood on 02-16-2025 WBC (Bld) [#/Vol] 8.5 10*3/uL 4.4-11.[address] [facility] Abdomen/Pelvis W IV Cont ONL Yon 02-13-2025 Abdomen/Pelvis W IV Cont ONLY Normal [facility] Absolute lymphocyte countOrd ered By: Luis Carlos Anderson on 02-13-2025 Lymphocytes Auto (Unsp spec) [#/Vol] 1.20 10*3/uL 0.83-4.51 [facility] Anion gap in Serum or Plasma Ordered By: Luis Carlos Anderson on 02-13-2025 Anion gap [Moles/Vol] 14 mmol/L 5-15 [facility] Automated lymphocyte count a s percentage of total leukocytesOrdered By: Luis Carlos Anderson on 02-13-2025 Lymphocytes/100 WBC Auto (Unsp spec) 13.9 % Low 19-41 [facility] BUN/creatinine ratioOrdered By: Luis Carlos Anderson on 02-13-2025 Urea nitrogen/Creatinine [Mass ratio] 14.3 mg/mg 10-20 [facility] Basophil percentageOrdered B y: Luis Carlos Anderson on 02-13-2025 Basophils/100 WBC (Bld) 0.3 % 0-1 [facility] Bilirubin, totalOrdered By: Luis Carlos Anderson on 02-13-2025 Bilirubin [Mass/Vol] 6.20 mg/dL High 0.00-1.30 [facility] Blood manual differential co mment interpretation (narrative result)Ordered By: Luis Carlos Anderson on 02-13-2025 Manual differential comment Marco Antonio (Bld) [Interp] SCANNED [facility] CBC W/Diff, Automatedon 02-01 PLT EST MOD DEC Normal ADEQ [facility] Comment on above: Performed By: #### L 100.0100, L500.4050, L501.2450 ####[facility] [address] [place], [address] Platelet mean volume (Bld) [Entitic vol] 10.8 fL Normal 6.2-12.0 [facility] Comment on above: Performed By: #### L 100.0100, L500.4050, L501.2450 ####[facility] [address] [place], [address] Platelets (Bld) [#/Vol] 83 10*3/uL Low 150-450 [facility] Comment on above: Result Comment: NO C LUMPING SEEN Performed By: #### L 100.0100, L500.4050, L501.2450 ####[facility] [address] [place], [address] SMEAR COMMENT SCANNED Normal [facility] Comment on above: Performed By: #### L 100.0100, L500.4050, L5.2450 ####[facility] [address] [place], [address] Carbon dioxide, total [Moles /volume] in Central venous bloodOrdered By: Luis Carlos Anderson on 02-13-2025 CO2 [Moles/Vol] 18.4 mmol/L Low 21.0-32.0 [facility] Chloride assayOrdered By: Yaya Anderson on 02-13-2025 Chloride [Moles/Vol] 102 mmol/L 98-108 [facility] Comprehensive Metabolic Prof ilon 02-13-2025 Albumin [Mass/Vol] 2.2 g/dL Low 3.5-5.[address] [facility] Comment on above: Performed By: #### L 100.0100, L500.4050, L501.2450 ####[facility] [address] [place], [address] Albumin/Globulin [Mass ratio] 0.6 {ratio} Low 0.9-2.4 [facility] Comment on above: Performed By: #### L 100.0100, L500.4050, L501.2450 ####[facility] [address] [place], [address] ALK PHOS 335 U/L High 40-129 [facility] Comment on above: Performed By: #### L 100.0100, L500.4050, L501.2450 ####[facility] [address] [place], [address] ALT [Catalytic activity/Vol] 53 U/L High <=46 [facility] Comment on above: Performed By: #### L 100.0100, L500.4050, L501.2450 ####[facility] [address] [place], [address] AST [Catalytic activity/Vol] 120 U/L High <=37 [facility] Comment on above: Performed By: #### L 100.0100, L500.4050, L501.2450 ####[facility] [address] [place], [address] Bilirubin [Mass/Vol] 6.20 mg/dL High 0.00-1.30 [facility] Comment on above: Performed By: #### L 100.0100, L500.4050, L501.2450 ####[facility] [address] [place], [address] BUN/CRE 14.3 RATIO Normal 10-20 [facility] Comment on above: Performed By: #### L 100.0100, L500.4050, L501.2450 ####[facility] [address] [place], [address] Calcium [Mass/Vol] 8.3 mg/dL Normal 7.6-11.[address] [facility] Comment on above: Performed By: #### L 100.0100, L500.4050, L501.2450 ####[facility] [address] [place], [address] Chloride [Moles/Vol] 102 mmol/L Normal 98-108 [facility] Comment on above: Performed By: #### L 100.0100, L500.4050, L501.2450 ####[facility] [address] [place], [address] CO2 [Moles/Vol] 18.4 mmol/L Low 21.0-32.0 [facility] Comment on above: Performed By: #### L 100.0100, L500.4050, L501.2450 ####[facility] [address] [place], [address] Creatinine [Mass/Vol] 1.78 mg/dL High 0.70-1.20 [facility] Comment on above: Result Comment: Icte daquan present, Results may be affected. Performed By: #### L 100.0100, L500.4050, L501.2450 ####[facility] [address] [place], [address] ECRCL 53.12 ml/min Normal 50-250 [facility] Comment on above: Performed By: #### L 100.0100, L500.4050, L501.2450 ####[facility] [address] [place], [address] GAP 14 Normal 5-15 [facility] Comment on above: Performed By: #### L 100.0100, L500.4050, L501.2450 ####[facility] [address] [place], [address] GFR/1.73 sq M.predicted among non-blacks MDRD (S/P/Bld) [Vol rate/Area] 44 mL/min/{1.73_m2} Low >60 [facility] Comment on above: Result Comment: mL/m in/1.73m2 CKD-EPI Creatinine Equation (2020) Performed By: #### L 100.0100, L500.4050, L501.2450 ####[facility] [address] [place], [address] Globulin (S) [Mass/Vol] 3.7 g/dL Normal 2.2-4.2 [place] Comment on above: Performed By: #### L 100.0100, L500.4050, L501.2450 ####[facility] [address] [place], [address] Glucose [Mass/Vol] 169 mg/dL High 70-[address] [facility] Comment on above: Performed By: #### L 100.0100, L500.4050, L501.2450 ####[facility] [address] [place], [address] Potassium [Moles/Vol] 3.4 mmol/L Normal 3.3-5.1 [facility] Comment on above: Result Comment: Hemo lysis present, Results??could be affected.?? Performed By: #### L 100.0100, L500.4050, L501.2450 ####[facility] [address] [place], [address] Sodium [Moles/Vol] 135 mmol/L Normal 133-[address] [facility] Comment on above: Performed By: #### L 100.0100, L500.4050, L501.2450 ####[facility] [address] [place], [address] T PROT 5.8 g/dL Low 5.9-8.4 [facility] Comment on above: Performed By: #### L 100.0100, L500.4050, L501.2450 ####[facility] [address] [place], [address] Urea nitrogen [Mass/Vol] 25 mg/dL High 4-19 [facility] Comment on above: Performed By: #### L 100.0100, L500.4050, L501.2450 ####[facility] [address] [place], [address] Emergency Department Summary on 02-13-2025 Emergency Department Summary Normal [facility] Eosinophil percentageOrdered By: Luis Carlos Anderson on 02-13-2025 Eosinophils/100 WBC (Bld) 5.1 % High 0-5 [facility] Erythrocyte distribution wid th ratioOrdered By: Luis Carlos Anderson on 02-13-2025 Erythrocyte distribution width (RBC) [Ratio] 17.4 % High 11.6-14.6 [facility] Erythrocyte distribution wid th standard deviationOrdered By: Luis Carlos Anderson on 02-13-2025 Erythrocyte distribution width (RBC) [Ratio] 52.3 fl High 35.1-43.9 [facility] Glomerular filtration rate ( GFR) estimation/1.73 sq m using serum, plasma, or whole bOrdered By: Luis Carlos Anderson on 02-13-2025 GFR/1.73 sq M.predicted among non-blacks MDRD (S/P/Bld) [Vol rate/Area] 44 mL/min/{1.73_m2} Low >60 [facility] Hematocrit Auto (Bld) [Volum e fraction]Ordered By: Luis Carlos Anderson on 02-13-2025 Hematocrit (Bld) [Volume fraction] 24.1 % Low 40-54 [facility] Hemoglobin measurementOrdere d By: Luis Carlos Anderson on 02-13-2025 Hemoglobin (Bld) [Mass/Vol] 8.3 g/dL Low 13.0-16.5 [facility] Immature granulocytes/100 WB C Auto (Bld)Ordered By: Luis Carlos Anderson on 02-13-2025 Immature granulocytes/100 WBC (Bld) 0.500 % 0.0-0.9 [facility] Lipaseon 02-13-2025 Lipase [Catalytic activity/Vol] 60 U/L Normal 13-75 [facility] Comment on above: Result Comment: Siddhartha bhat note:LIPASE revised reference range effective 22.New Lipase methodology. Expected to produce lower valuesthan the previous assay method.NEW Reference Range: 13 - 75 U/L Performed By: #### L 100.0100, L500.4050, L501.2450 ####[facility] [address] [place], [address] MCV (mean corpuscular volume ) determinationOrdered By: Luis Carlos Anderson on 02-13-2025 MCV (RBC) [Entitic vol] 84.9 fL 80-94 [facility] Mean corpuscular hemoglobin (MCH) determinationOrdered By: Luis Carlos Anderson on 02-13-2025 MCH (RBC) [Entitic mass] 29.2 pg 27.0-32.0 [facility] Monocyte percentageOrdered B y: Luis Carlos Anderson on 02-13-2025 Monocytes/100 WBC (Bld) 16.1 % High 0-10 [facility] Neutrophil percentageOrdered By: Luis Carlos Anderson on 02-13-2025 Neutrophils/100 WBC (Bld) 64.1 % 47-70 [facility] No Panel InformationOrdered By: Luis Carlos Anderson on 02-13-2025 120 U/L High <38 [facility] Platelet countOrdered By: felipe Anderson on 02-13-2025 Platelets (Bld) [#/Vol] 83 10*3/uL Low 150-450 [facility] Platelet estimateOrdered By: Luis Carlos Anderson on 02-13-2025 Platelets LM Ql (Bld) MOD DEC ADEQ [facility] Potassium measurement (mass/ volume)Ordered By: Luis Carlos Anderson on 02-13-2025 Potassium (Unsp spec) [Mass/Vol] 3.4 mmol/L 3.3-5.1 [facility] RBC Auto (Bld) [#/Vol]Ordere d By: Luis Carlos Anderson on 02-13-2025 RBC (Bld) [#/Vol] 2.84 10*6/uL Low 4.6-6.2 [facility] Serum creatinine measurement (mass/volume)Ordered By: Luis Carlos Anderson on 02-13-2025 Creatinine [Mass/Vol] 1.78 mg/dL High 0.70-1.20 [facility] Serum globulin measurementOr dered By: Luis Carlos Anderson on 02-13-2025 Globulin (S) [Mass/Vol] 3.7 g/dL 2.2-4.2 [facility] Serum glucose measurement (m ass/volume)Ordered By: Luis Carlos Anderson on 02-13-2025 Glucose [Mass/Vol] 169 mg/dL High 70-[address] [facility] Serum or plasma alanine thomas otransferase (ALT) measurementOrdered By: Luis Carlos Anderson on 02-13-2025 ALT [Catalytic activity/Vol] 53 U/L High <47 [facility] Serum or plasma albumin roosevelt urement (mass/volume)Ordered By: Luis Carlos Anderson on 02-13-2025 Albumin [Mass/Vol] 2.2 g/dL Low 3.5-5.[address] [facility] Serum or plasma albumin/glob ulin mass ratioOrdered By: Luis Carlos Anderson on 02-13-2025 Albumin/Globulin [Mass ratio] 0.6 {ratio} Low 0.9-2.4 [facility] Serum or plasma alkaline kendrick sphatase measurementOrdered By: Luis Carlos Anderson on 02-13-2025 ALP [Catalytic activity/Vol] 335 U/L High 40-129 [facility] Serum or plasma calcium roosevelt urement (mass/volume)Ordered By: Luis Carlos Anderson on 02-13-2025 Calcium [Mass/Vol] 8.3 mg/dL 7.6-11.[address] [facility] Serum or plasma urea nitroge n measurement (mass/volume)Ordered By: Luis Carlos Anderson on 02-13-2025 Urea nitrogen [Mass/Vol] 25 mg/dL High 4-19 [facility] Sodium levelOrdered By: Yunior Anderson on 02-13-2025 Sodium [Moles/Vol] 135 mmol/L 133-[address] [facility] Total proteinOrdered By: Joann Anderson on 02-13-2025 Protein [Mass/Vol] 5.8 g/dL Low 5.9-8.[address] [facility] White blood cell (WBC) count Ordered By: Luis Carlos Anderson on 02-13-2025 WBC (Bld) [#/Vol] 8.6 10*3/uL 4.4-11.[address] [facility] Operative Reporton Operative Report Normal [facility] Paracentesis with USon 02-11 Paracentesis with US Normal [facility] Emergency Department Summary on 02-08-2025 Emergency Department Summary Normal [facility] Abdomen/Pelvis W IV Cont ONL Yon 02-07-2025 Abdomen/Pelvis W IV Cont ONLY Normal [facility] Absolute lymphocyte countOrd ered By: ED PROVIDER on 02-07-2025 Lymphocytes Auto (Unsp spec) [#/Vol] 1.39 10*3/uL 0.83-4.51 [facility] Anion gap in Serum or Plasma Ordered By: ED PROVIDER on 02-07-2025 Anion gap [Moles/Vol] 9 mmol/L 5-15 [facility] Automated lymphocyte count a s percentage of total leukocytesOrdered By: ED PROVIDER on 02-07-2025 Lymphocytes/100 WBC Auto (Unsp spec) 12.8 % Low 19-41 [facility] BUN/creatinine ratioOrdered By: ED PROVIDER on 02-07-2025 Urea nitrogen/Creatinine [Mass ratio] 13.9 mg/mg 10-20 [facility] Basophil percentageOrdered B y: ED PROVIDER on 02-07-2025 Basophils/100 WBC (Bld) 0.5 % 0-1 [facility] Bilirubin, totalOrdered By: ED PROVIDER on 02-07-2025 Bilirubin [Mass/Vol] 1.92 mg/dL High 0.00-1.30 [facility] CBC W/Diff, Automatedon Absolute Lymph 1.39 X10 3/uL Normal 0.83-4.51 [facility] Comment on above: Performed By: #### L 100.0100, L501.2450, L500.4050 ####[facility] [address] [place], [place], [address] Absolute Neut 7.9 X10 3/uL High 2.0-7.7 [facility] Comment on above: Performed By: #### L 100.0100, L501.2450, L500.4050 ####[facility] [address] [place], [address] Basophils/100 WBC (Bld) 0.5 % Normal 0-1 [facility] Comment on above: Performed By: #### L 100.0100, L501.2450, L500.4050 ####[facility] [address] [place], [address] Eosinophils/100 WBC (Bld) 5.4 % High 0-5 [facility] Comment on above: Performed By: #### L 100.0100, L501.2450, L500.4050 ####[facility] [address] [place], [address] Erythrocyte distribution width (RBC) [Ratio] 17.9 % High 11.6-14.6 [facility] Comment on above: Performed By: #### L 100.0100, L501.2450, L500.4050 ####[facility] [address] [place], [address] Hematocrit (Bld) [Volume fraction] 28.8 % Low 40-54 [facility] Comment on above: Performed By: #### L 100.0100, L501.2450, L500.4050 ####[facility] [address] [place], [address] Hemoglobin (Bld) [Mass/Vol] 9.2 g/dL Low 13.0-16.5 [facility] Comment on above: Performed By: #### L 100.0100, L501.2450, L500.4050 ####[facility] [address] [place], [address] IG% 0.400 Normal 0.0-0.9 [facility] Comment on above: Result Comment: IG% - Immature Granulocytes (promyelocytes, myelocytes andmetamyelocytes) > 1% indicates that a LEFT SHIFT is Present. Performed By: #### L 100.0100, L501.2450, L500.4050 ####[facility] [address] [place], [address] Lymphocytes/100 WBC (Bld) 12.8 % Low 19-41 [facility] Comment on above: Performed By: #### L 100.0100, L501.2450, L500.4050 ####[facility] [address] [place], [address] MCH (RBC) [Entitic mass] 29.0 pg Normal 27.0-32.0 [facility] Comment on above: Performed By: #### L 100.0100, L501.2450, L500.4050 ####[facility] [address] [place], [address] MCHC (RBC) [Mass/Vol] 31.9 g/dL Low 32-36 [facility] Comment on above: Performed By: #### L 100.0100, L501.2450, L500.4050 ####[facility] [address] [place], [address] MCV (RBC) [Entitic vol] 90.9 fL Normal 80-94 [place] Comment on above: Performed By: #### L 100.0100, L501.2450, L500.4050 ####[facility] [address] [place], [address] Monocytes/100 WBC (Bld) 8.1 % Normal 0-10 [facility] Comment on above: Performed By: #### L 100.0100, L501.2450, L500.4050 ####[facility] [address] [place], [address] Neutrophils/100 WBC (Bld) 72.8 % High 47-70 [facility] Comment on above: Performed By: #### L 100.0100, L501.2450, L500.4050 ####[facility] [address] [place], [address] Nucleated RBC (Bld) [#/Vol] 0 10*3/uL Normal 0-5 [facility] Comment on above: Performed By: #### L 100.0100, L501.2450, L500.4050 ####[facility] [address] [place], [address] Platelet mean volume (Bld) [Entitic vol] 10.1 fL Normal 6.2-12.0 [facility] Comment on above: Performed By: #### L 100.0100, L501.2450, L500.4050 ####[facility] [address] [place], [address] Platelets (Bld) [#/Vol] 131 10*3/uL Low 150-450 [facility] Comment on above: Performed By: #### L 100.0100, L501.2450, L500.4050 ####[facility] [address] [place], [address] RBC (Bld) [#/Vol] 3.17 10*6/uL Low 4.6-6.2 [facility] Comment on above: Performed By: #### L 100.0100, L501.2450, L500.4050 ####[facility] [address] [place], [address] RDW SD 58.3 fl High 35.1-43.9 [facility] Comment on above: Performed By: #### L 100.0100, L501.2450, L500.4050 ####[facility] [address] [place], [address] WBC (Bld) [#/Vol] 10.8 10*3/uL Normal 4.4-11.0 [facility] Comment on above: Performed By: #### L 100.0100, L501.2450, L500.4050 ####[facility] [address] [place], [address] Carbon dioxide, total [Moles /volume] in Central venous bloodOrdered By: ED PROVIDER on 02-07-2025 CO2 [Moles/Vol] 22.7 mmol/L 21.0-32.0 [facility] Chloride assayOrdered By: ED PROVIDER on 02-07-2025 Chloride [Moles/Vol] 106 mmol/L 98-108 [facility] Comprehensive Metabolic Prof ilon 02-07-2025 Albumin [Mass/Vol] 2.2 g/dL Low 3.5-5.[address] [facility] Comment on above: Performed By: #### L 100.0100, L501.2450, L500.4050 ####[facility] [address] [place], [address] Albumin/Globulin [Mass ratio] 0.6 {ratio} Low 0.9-2.4 [facility] Comment on above: Performed By: #### L 100.0100, L501.2450, L500.4050 ####[facility] [address] [place], [address] ALK PHOS 218 U/L High 40-129 [facility] Comment on above: Performed By: #### L 100.0100, L501.2450, L500.4050 ####[facility] [address] [place], [address] ALT [Catalytic activity/Vol] 30 U/L Normal <=46 [facility] Comment on above: Performed By: #### L 100.0100, L501.2450, L500.4050 ####[facility] [address] [place], [address] AST [Catalytic activity/Vol] 55 U/L High <=37 [facility] Comment on above: Performed By: #### L 100.0100, L501.2450, L500.4050 ####[facility] [address] [place], [address] Bilirubin [Mass/Vol] 1.92 mg/dL High 0.00-1.30 [facility] Comment on above: Performed By: #### L 100.0100, L501.2450, L500.4050 ####[facility] [address] [place], [address] BUN/CRE 13.9 RATIO Normal 10-20 [facility] Comment on above: Performed By: #### L 100.0100, L501.2450, L500.4050 ####[facility] [address] [place], [address] Calcium [Mass/Vol] 8.4 mg/dL Normal 7.6-11.[address] [facility] Comment on above: Performed By: #### L 100.0100, L501.2450, L500.4050 ####[facility] [address] [place], [address] Chloride [Moles/Vol] 106 mmol/L Normal 98-108 [facility] Comment on above: Performed By: #### L 100.0100, L501.2450, L500.4050 ####[facility] [address] [place], [address] CO2 [Moles/Vol] 22.7 mmol/L Normal 21.0-32.0 [facility] Comment on above: Performed By: #### L 100.0100, L501.2450, L500.4050 ####[facility] [address] [place], [address] Creatinine [Mass/Vol] 1.05 mg/dL Normal 0.70-1.20 [facility] Comment on above: Performed By: #### L 100.0100, L501.2450, L500.4050 ####[facility] [address] [place], [address] GAP 9 Normal 5-15 [facility] Comment on above: Performed By: #### L 100.0100, L501.2450, L500.4050 ####[facility] [address] [place], [address] GFR/1.73 sq M.predicted among non-blacks MDRD (S/P/Bld) [Vol rate/Area] 82 mL/min/{1.73_m2} Normal >60 [facility] Comment on above: Result Comment: mL/m in/1.73m2 CKD-EPI Creatinine Equation (2020) Performed By: #### L 100.0100, L501.2450, L500.4050 ####[facility] [address] [place], [address] Globulin (S) [Mass/Vol] 3.5 g/dL Normal 2.2-4.2 [place] Comment on above: Performed By: #### L 100.0100, L501.2450, L500.4050 ####[facility] [address] [place], [address] Glucose [Mass/Vol] 142 mg/dL High 70-[address] [facility] Comment on above: Performed By: #### L 100.0100, L501.2450, L500.4050 ####[facility] [address] [place], [address] Potassium [Moles/Vol] 3.7 mmol/L Normal 3.3-5.1 [facility] Comment on above: Performed By: #### L 100.0100, L501.2450, L500.4050 ####[facility] [address] [place], [address] Sodium [Moles/Vol] 137 mmol/L Normal 133-[address] [facility] Comment on above: Performed By: #### L 100.0100, L501.2450, L500.4050 ####[facility] [address] [place], [address] T PROT 5.8 g/dL Low 5.9-8.4 [facility] Comment on above: Performed By: #### L 100.0100, L501.2450, L500.4050 ####[facility] [address] [place], [address] Urea nitrogen [Mass/Vol] 15 mg/dL Normal 4-19 [facility] Comment on above: Performed By: #### L 100.0100, L501.2450, L500.4050 ####[facility] [address] [place], [address] Eosinophil percentageOrdered By: ED PROVIDER on 02-07-2025 Eosinophils/100 WBC (Bld) 5.4 % High 0-5 [facility] Erythrocyte distribution wid th ratioOrdered By: ED PROVIDER on 02-07-2025 Erythrocyte distribution width (RBC) [Ratio] 17.9 % High 11.6-14.6 [facility] Erythrocyte distribution wid th standard deviationOrdered By: ED PROVIDER on 02-07-2025 Erythrocyte distribution width (RBC) [Ratio] 58.3 fl High 35.1-43.9 [facility] Glomerular filtration rate ( GFR) estimation/1.73 sq m using serum, plasma, or whole bOrdered By: ED PROVIDER on 02-07-2025 GFR/1.73 sq M.predicted among non-blacks MDRD (S/P/Bld) [Vol rate/Area] 82 mL/min/{1.73_m2} >60 [facility] Hematocrit Auto (Bld) [Volum e fraction]Ordered By: ED PROVIDER on 02-07-2025 Hematocrit (Bld) [Volume fraction] 28.8 % Low 40-54 [facility] Hemoglobin measurementOrdere d By: ED PROVIDER on 02-07-2025 Hemoglobin (Bld) [Mass/Vol] 9.2 g/dL Low 13.0-16.5 [facility] Immature granulocytes/100 WB C Auto (Bld)Ordered By: ED PROVIDER on 02-07-2025 Immature granulocytes/100 WBC (Bld) 0.400 % 0.0-0.9 [facility] Lipaseon 02-07-2025 Lipase [Catalytic activity/Vol] 35 U/L Normal 13-75 [facility] Comment on above: Result Comment: Siddhartha bhat note:LIPASE revised reference range effective 22.New Lipase methodology. Expected to produce lower valuesthan the previous assay method.NEW Reference Range: 13 - 75 U/L Performed By: #### L 100.0100, L501.2450, L500.4050 ####[facility] [address] [place], [address] MCV (mean corpuscular volume ) determinationOrdered By: ED PROVIDER on 02-07-2025 MCV (RBC) [Entitic vol] 90.9 fL 80-94 [facility] Mean corpuscular hemoglobin (MCH) determinationOrdered By: ED PROVIDER on 02-07-2025 MCH (RBC) [Entitic mass] 29.0 pg 27.0-32.0 [facility] Monocyte percentageOrdered B y: ED PROVIDER on 02-07-2025 Monocytes/100 WBC (Bld) 8.1 % 0-10 [facility] Neutrophil percentageOrdered By: ED PROVIDER on 02-07-2025 Neutrophils/100 WBC (Bld) 72.8 % High 47-70 [facility] Rehabilitation No Panel InformationOrdered By: ED PROVIDER on 02-07-2025 55 U/L High <38 [facility] Platelet countOrdered By: ED PROVIDER on 02-07-2025 Platelets (Bld) [#/Vol] 131 10*3/uL Low 150-450 [facility] Potassium measurement (mass/ volume)Ordered By: ED PROVIDER on 02-07-2025 Potassium (Unsp spec) [Mass/Vol] 3.7 mmol/L 3.3-5.1 [facility] RBC Auto (Bld) [#/Vol]Ordere d By: ED PROVIDER on 02-07-2025 RBC (Bld) [#/Vol] 3.17 10*6/uL Low 4.6-6.2 [facility] Serum creatinine measurement (mass/volume)Ordered By: ED PROVIDER on 02-07-2025 Creatinine [Mass/Vol] 1.05 mg/dL 0.70-1.20 [facility] Serum globulin measurementOr dered By: ED PROVIDER on 02-07-2025 Globulin (S) [Mass/Vol] 3.5 g/dL 2.2-4.2 [facility] Serum glucose measurement (m ass/volume)Ordered By: ED PROVIDER on 02-07-2025 Glucose [Mass/Vol] 142 mg/dL High 70-[address] [facility] Serum or plasma alanine thomas otransferase (ALT) measurementOrdered By: ED PROVIDER on 02-07-2025 ALT [Catalytic activity/Vol] 30 U/L <47 [facility] Serum or plasma albumin roosevelt urement (mass/volume)Ordered By: ED PROVIDER on 02-07-2025 Albumin [Mass/Vol] 2.2 g/dL Low 3.5-5.[address] [facility] Serum or plasma albumin/glob ulin mass ratioOrdered By: ED PROVIDER on 02-07-2025 Albumin/Globulin [Mass ratio] 0.6 {ratio} Low 0.9-2.4 [facility] Serum or plasma alkaline kendrick sphatase measurementOrdered By: ED PROVIDER on 02-07-2025 ALP [Catalytic activity/Vol] 218 U/L High 40-129 [facility] Serum or plasma calcium roosevelt urement (mass/volume)Ordered By: ED PROVIDER on 02-07-2025 Calcium [Mass/Vol] 8.4 mg/dL 7.6-11.[address] [facility] Serum or plasma urea nitroge n measurement (mass/volume)Ordered By: ED PROVIDER on 02-07-2025 Urea nitrogen [Mass/Vol] 15 mg/dL 4-19 [facility] Sodium levelOrdered By: ED Michael NUNEZ on 02-07-2025 Sodium [Moles/Vol] 137 mmol/L 133-[address] [facility] Total proteinOrdered By: ED PROVIDER on 02-07-2025 Protein [Mass/Vol] 5.8 g/dL Low 5.9-8.[address] [facility] White blood cell (WBC) count Ordered By: ED PROVIDER on 02-07-2025 WBC (Bld) [#/Vol] 10.8 10*3/uL 4.4-11.0 [facility] Culture, Blood (WB)on 2024 CUB Blood cultures x2, f rom two different sites No growth in 5 days. Normal [facility] Comment on above: Performed By: #### M 200.1000 ####[facility] [address] [place], [address] Anion gap in Serum or Plasma Ordered By: Yaritza Leo on 01-31-2025 Anion gap [Moles/Vol] 9 mmol/L 12-16 [facility] BUN/creatinine ratioOrdered By: Yaritza Leo on 01-31-2025 Urea nitrogen/Creatinine [Mass ratio] 10.7 mg/mg - [facility] Basic Metabolic Profile (BMP )on 01-31-2025 BUN/CRE 10.7 RATIO Normal 05-23 [facility] Comment on above: Performed By: #### L 500.2500, L100.0500 ####[facility] [address] [place], [address] Calcium [Mass/Vol] 8.5 mg/dL Normal 7.6-11.[address] [facility] Comment on above: Performed By: #### L 500.2500, L100.0500 ####[facility] [address] [place], [address] Chloride [Moles/Vol] 102 mmol/L Normal 98-108 [facility] Comment on above: Performed By: #### L 500.2500, L100.0500 ####[facility] [address] [place], [address] CO2 [Moles/Vol] 22.6 mmol/L Normal 21.0-32.0 [facility] Comment on above: Performed By: #### L 500.2500, L100.0500 ####[facility] [address] [place], [address] Creatinine [Mass/Vol] 0.95 mg/dL Normal 0.70-1.20 [facility] Comment on above: Performed By: #### L 500.2500, L100.0500 ####[facility] [address] [place], [address] ECRCL 108.71 ml/min Normal 50-250 [facility] Comment on above: Performed By: #### L 500.2500, L100.0500 ####[facility] [address] [place], [address] GAP 9 Normal 5-15 [facility] Comment on above: Performed By: #### L 500.2500, L100.0500 ####[facility] [address] [place], [address] GFR/1.73 sq M.predicted among non-blacks MDRD (S/P/Bld) [Vol rate/Area] 93 mL/min/{1.73_m2} Normal >60 [facility] Comment on above: Result Comment: mL/m in/1.73m2 CKD-EPI Creatinine Equation (2020) Performed By: #### L 500.2500, L100.0500 ####[facility] [address] [place], [address] Glucose [Mass/Vol] 143 mg/dL High 70-[address] [facility] Comment on above: Performed By: #### L 500.2500, L100.0500 ####[facility] [address] [place], [address] Potassium [Moles/Vol] 3.9 mmol/L Normal 3.3-5.1 [facility] Comment on above: Performed By: #### L 500.2500, L100.0500 ####[facility] [address] [place], [address] Sodium [Moles/Vol] 133 mmol/L Normal 133-[address] [facility] Comment on above: Performed By: #### L 500.2500, L100.0500 ####[facility] [address] [place], [address] Urea nitrogen [Mass/Vol] 10 mg/dL Normal 4-19 [facility] Comment on above: Performed By: #### L 500.2500, L100.0500 ####[facility] [address] [place], [address] Bedside Glucoseon 01-31-2025 FINGERSTICK GLU 129 mg/dL High 74-106 [facility] Comment on above: Result Comment: BRISA GEMENT OF PATIENT CARE PER NURSING PROTOCOL Performed By: #### L 501.080 ####[facility] [address] [place], [address] FINGERSTICK GLU 179 mg/dL High 74-106 [facility] Comment on above: Result Comment: BRISA GEMENT OF PATIENT CARE PER NURSING PROTOCOL Performed By: #### L 501.080 ####[facility] [address] [place], [address] FINGERSTICK GLU 149 mg/dL High 74-106 [facility] Comment on above: Result Comment: BRISA GEMENT OF PATIENT CARE PER NURSING PROTOCOL Performed By: #### L 501.080 ####[facility] [address] [place], [address] CBC-Complete Blood Cnt No Di ffon 01-31-2025 Erythrocyte distribution width (RBC) [Ratio] 17.7 % High 11.6-14.6 [facility] Comment on above: Performed By: #### L 500.2500, L100.0500 ####[facility] [address] [place], [address] Hematocrit (Bld) [Volume fraction] 23.8 % Low 40-54 [facility] Comment on above: Performed By: #### L 500.2500, L100.0500 ####[facility] [address] [place], [address] Hemoglobin (Bld) [Mass/Vol] 7.9 g/dL Low 13.0-16.5 [facility] Comment on above: Performed By: #### L 500.2500, L100.0500 ####[facility] [address] [place], [address] MCH (RBC) [Entitic mass] 29.8 pg Normal 27.0-32.0 [facility] Comment on above: Performed By: #### L 500.2500, L100.0500 ####[facility] [address] [place], [address] MCHC (RBC) [Mass/Vol] 33.2 g/dL Normal 32-36 [facility] Comment on above: Performed By: #### L 500.2500, L100.0500 ####[facility] [address] [place], [address] MCV (RBC) [Entitic vol] 89.8 fL Normal 80-94 [facility] Comment on above: Performed By: #### L 500.2500, L100.0500 ####[facility] [address] [place], [address] Platelet mean volume (Bld) [Entitic vol] 10.6 fL Normal 6.2-12.0 [facility] Comment on above: Performed By: #### L 500.2500, L100.0500 ####[facility] [address] [place], [address] Platelets (Bld) [#/Vol] 108 10*3/uL Low 150-450 [facility] Comment on above: Performed By: #### L 500.2500, L100.0500 ####[facility] [address] [place], [address] RBC (Bld) [#/Vol] 2.65 10*6/uL Low 4.6-6.2 [facility] Comment on above: Performed By: #### L 500.2500, L100.0500 ####[facility] [address] [place], [address] RDW SD 56.9 fl High 35.1-43.9 [facility] Comment on above: Performed By: #### L 500.2500, L100.0500 ####[facility] [address] [place], [address] WBC (Bld) [#/Vol] 5.9 10*3/uL Normal 4.4-11.[address] [facility] Comment on above: Performed By: #### L 500.2500, L100.0500 ####[facility] [address] [place], [address] Carbon dioxide, total [Moles /volume] in Central venous bloodOrdered By: Yaritza Leo on 01-31-2025 CO2 [Moles/Vol] 22.6 mmol/L 21.0-32.0 [facility] Chloride assayOrdered By: Raad Leo on 01-31-2025 Chloride [Moles/Vol] 102 mmol/L 98-108 [facility] Erythrocyte distribution wid th ratioOrdered By: Yaritza Leo on 01-31-2025 Erythrocyte distribution width (RBC) [Ratio] 17.7 % High 11.6-14.6 [facility] Erythrocyte distribution wid th standard deviationOrdered By: Yaritza Leo on 01-31-2025 Erythrocyte distribution width (RBC) [Ratio] 56.9 fl High 35.1-43.9 [facility] Glomerular filtration rate ( GFR) estimation/1.73 sq m using serum, plasma, or whole bOrdered By: Yaritza Leo on 01-31-2025 GFR/1.73 sq M.predicted among non-blacks MDRD (S/P/Bld) [Vol rate/Area] 93 mL/min/{1.73_m2} >60 [facility] deOrdered By: Yaritza Leo on 01-31-2025 Glucose [Mass/Vol] 129 mg/dL High 74-[address] [facility] Hematocrit Auto (Bld) [Volum e fraction]Ordered By: Yaritza Leo on 01-31-2025 Hematocrit (Bld) [Volume fraction] 23.8 % Low 40-54 [facility] Hemoglobin measurementOrdere d By: Yaritza Leo on 01-31-2025 Hemoglobin (Bld) [Mass/Vol] 7.9 g/dL Low 13.0-16.5 [facility] MCV (mean corpuscular volume ) determinationOrdered By: Yaritza Leo on 01-31-2025 MCV (RBC) [Entitic vol] 89.8 fL 80-94 [facility] Mean corpuscular hemoglobin (MCH) determinationOrdered By: Yaritza Leo on 01-31-2025 MCH (RBC) [Entitic mass] 29.8 pg 27.0-32.0 [facility] Platelet countOrdered By: Raad Leo on 01-31-2025 Platelets (Bld) [#/Vol] 108 10*3/uL Low 150-450 [facility] Potassium measurement (mass/ volume)Ordered By: Yaritza Leo on 01-31-2025 Potassium (Unsp spec) [Mass/Vol] 3.9 mmol/L 3.3-5.1 [facility] RBC Auto (Bld) [#/Vol]Ordere d By: Yaritza Leo on 01-31-2025 RBC (Bld) [#/Vol] 2.65 10*6/uL Low 4.6-6.2 [facility] Serum creatinine measurement (mass/volume)Ordered By: Yaritza Leo on 01-31-2025 Creatinine [Mass/Vol] 0.95 mg/dL 0.70-1.20 [facility] Serum glucose measurement (m ass/volume)Ordered By: Yaritza Leo on 01-31-2025 Glucose [Mass/Vol] 143 mg/dL High 70-[address] [facility] Serum or plasma calcium roosevelt urement (mass/volume)Ordered By: Yaritza Leo on 01-31-2025 Calcium [Mass/Vol] 8.5 mg/dL 7.6-11.[address] [facility] Serum or plasma urea nitroge n measurement (mass/volume)Ordered By: Yaritza Leo on 01-31-2025 Urea nitrogen [Mass/Vol] 10 mg/dL 4-19 [facility] Sodium levelOrdered By: Saritha Leo on 01-31-2025 Sodium [Moles/Vol] 133 mmol/L 133-[address] [facility] White blood cell (WBC) count Ordered By: Yaritza Leo on 01-31-2025 WBC (Bld) [#/Vol] 5.9 10*3/uL 4.4-11.[address] [facility] Absolute lymphocyte countOrd ered By: Yaritza Leo on 01-30-2025 Lymphocytes Auto (Unsp spec) [#/Vol] 1.08 10*3/uL 0.83-4.51 [facility] Automated lymphocyte count a s percentage of total leukocytesOrdered By: Yaritza Leo on 01-30-2025 Lymphocytes/100 WBC Auto (Unsp spec) 20.0 % 19-41 [facility] Basic Metabolic Profile (BMP )on 01-30-2025 BUN/CRE 10.1 RATIO Normal 10-20 [facility] Comment on above: Performed By: #### L 501.5200, L501.2300, L500.2500, L100.0100 ####[facility] [address] [place], [address] Calcium [Mass/Vol] 8.4 mg/dL Normal 7.6-11.[address] [facility] Comment on above: Performed By: #### L 501.5200, L501.2300, L500.2500, L100.0100 ####[facility] [address] [place], [address] Chloride [Moles/Vol] 101 mmol/L Normal 98-108 [facility] Comment on above: Performed By: #### L 501.5200, L501.2300, L500.2500, L100.0100 ####[facility] [address] [place], [address] CO2 [Moles/Vol] 17.3 mmol/L Low 21.0-32.0 [facility] Comment on above: Performed By: #### L 501.5200, L501.2300, L500.2500, L100.0100 ####[facility] [address] [place], [address] Creatinine [Mass/Vol] 0.93 mg/dL Normal 0.70-1.20 [facility] Comment on above: Performed By: #### L 501.5200, L501.2300, L500.2500, L100.0100 ####[facility] [address] [place], [address] ECRCL 111.05 ml/min Normal 50-250 [facility] Comment on above: Performed By: #### L 501.5200, L501.2300, L500.2500, L100.0100 ####[facility] [address] [place], [address] GAP 13 Normal 5-15 [facility] Comment on above: Performed By: #### L 501.5200, L501.2300, L500.2500, L100.0100 ####[facility] [address] [place], [address] GFR/1.73 sq M.predicted among non-blacks MDRD (S/P/Bld) [Vol rate/Area] 95 mL/min/{1.73_m2} Normal >60 [facility] Comment on above: Result Comment: mL/m in/1.73m2 CKD-EPI Creatinine Equation (2020) Performed By: #### L 501.5200, L501.2300, L500.2500, L100.0100 ####[facility] [address] [place], [address] Glucose [Mass/Vol] 139 mg/dL High 70-[address] [facility] Comment on above: Performed By: #### L 501.5200, L501.2300, L500.2500, L100.0100 ####[facility] [address] [place], [address] Potassium [Moles/Vol] 3.5 mmol/L Normal 3.3-5.1 [facility] Comment on above: Result Comment: Hemo lysis present, Results??could be affected.?? Performed By: #### L 501.5200, L501.2300, L500.2500, L100.0100 ####[facility] [address] [place], [address] Sodium [Moles/Vol] 131 mmol/L Low 133-[address] [facility] Comment on above: Performed By: #### L 501.5200, L501.2300, L500.2500, L100.0100 ####[facility] [address] [place], [address] Urea nitrogen [Mass/Vol] 9 mg/dL Normal 4-19 [facility] Comment on above: Performed By: #### L 501.5200, L501.2300, L500.2500, L100.0100 ####[facility] [address] [place], [address] Basophil percentageOrdered B y: Yaritza Ahmet on 01-30-2025 Basophils/100 WBC (Bld) 0.7 % Normal 0-1 [facility] Comment on above: Performed By: #### L 501.5200, L501.2300, L500.2500, L100.0100 ####[facility] [address] [place], [address] Bedside Glucoseon 01-30-2025 FINGERSTICK GLU 170 mg/dL High 74-106 [facility] Comment on above: Result Comment: BRISA MOROCHO OF PATIENT CARE PER NURSING PROTOCOL Performed By: #### L 501.080 ####[facility] [address] [place], [address] FINGERSTICK GLU 122 mg/dL High 74-106 [facility] Comment on above: Result Comment: BRISA GEMENT OF PATIENT CARE PER NURSING PROTOCOL Performed By: #### L 501.080 ####[facility] [address] [place], [address] FINGERSTICK GLU 119 mg/dL High 74-106 [facility] Comment on above: Result Comment: BRISA GEMENT OF PATIENT CARE PER NURSING PROTOCOL Performed By: #### L 501.080 ####[facility] [address] [place], [address] FINGERSTICK GLU 116 mg/dL High 74-106 [facility] Comment on above: Result Comment: BRISA GEMENT OF PATIENT CARE PER NURSING PROTOCOL Performed By: #### L 501.080 ####[facility] [address] [place], [address] CBC W/Diff, Automatedon 01-03 Absolute Lymph 1.08 X10 3/uL Normal 0.83-4.51 [facility] Comment on above: Performed By: #### L 501.5200, L501.2300, L500.2500, L100.0100 ####[facility] [address] [place], [address] Absolute Neut 2.9 X10 3/uL Normal 2.0-7.7 [facility] Comment on above: Performed By: #### L 501.5200, L501.2300, L500.2500, L100.0100 ####[facility] [address] [place], [address] Erythrocyte distribution width (RBC) [Ratio] 18.1 % High 11.6-14.6 [facility] Comment on above: Performed By: #### L 501.5200, L501.2300, L500.2500, L100.0100 ####[facility] [address] [place], [address] Hematocrit (Bld) [Volume fraction] 24.1 % Low 40-54 [facility] Comment on above: Performed By: #### L 501.5200, L501.2300, L500.2500, L100.0100 ####[facility] [address] [place], [address] Hemoglobin (Bld) [Mass/Vol] 7.7 g/dL Low 13.0-16.5 [facility] Comment on above: Performed By: #### L 501.5200, L501.2300, L500.2500, L100.0100 ####[facility] [address] [place], [address] IG% 0.600 Normal 0.0-0.9 [facility] Comment on above: Result Comment: IG% - Immature Granulocytes (promyelocytes, myelocytes andmetamyelocytes) > 1% indicates that a LEFT SHIFT is Present. Performed By: #### L 501.5200, L501.2300, L500.2500, L100.0100 ####[facility] [address] [place], [address] Lymphocytes/100 WBC (Bld) 20.0 % Normal 19-41 [facility] Comment on above: Performed By: #### L 501.5200, L501.2300, L500.2500, L100.0100 ####[facility] [address] [place], [address] MCH (RBC) [Entitic mass] 29.2 pg Normal 27.0-32.0 [facility] Comment on above: Performed By: #### L 501.5200, L501.2300, L500.2500, L100.0100 ####[facility] [address] [place], [address] MCHC (RBC) [Mass/Vol] 32.0 g/dL Normal 32-36 [facility] Comment on above: Performed By: #### L 501.5200, L501.2300, L500.2500, L100.0100 ####[facility] [address] [place], [address] MCV (RBC) [Entitic vol] 91.3 fL Normal 80-94 [facility] Comment on above: Performed By: #### L 501.5200, L501.2300, L500.2500, L100.0100 ####[facility] [address] [place], [address] Nucleated RBC (Bld) [#/Vol] 0 10*3/uL Normal 0-5 [facility] Comment on above: Performed By: #### L 501.5200, L501.2300, L500.2500, L100.0100 ####[facility] [address] [place], [address] Platelet mean volume (Bld) [Entitic vol] 10.5 fL Normal 6.2-12.0 [facility] Comment on above: Performed By: #### L 501.5200, L501.2300, L500.2500, L100.0100 ####[facility] [address] [place], [address] Platelets (Bld) [#/Vol] 108 10*3/uL Low 150-450 [facility] Comment on above: Performed By: #### L 501.5200, L501.2300, L500.2500, L100.0100 ####[facility] [address] [place], [address] RBC (Bld) [#/Vol] 2.64 10*6/uL Low 4.6-6.2 [facility] Comment on above: Performed By: #### L 501.5200, L501.2300, L500.2500, L100.0100 ####[facility] [address] [place], [address] RDW SD 61.1 fl High 35.1-43.9 [facility] Comment on above: Performed By: #### L 501.5200, L501.2300, L500.2500, L100.0100 ####[facility] [address] [place], [address] WBC (Bld) [#/Vol] 5.4 10*3/uL Normal 4.4-11.[address] [facility] Comment on above: Performed By: #### L 501.5200, L501.2300, L500.2500, L100.0100 ####[facility] [address] [place], [address] Eosinophil percentageOrdered By: Yaritza Leo on 01-30-2025 Eosinophils/100 WBC (Bld) 7.0 % High 0-5 [facility] Comment on above: Performed By: #### L 501.5200, L501.2300, L500.2500, L100.0100 ####[facility] [address] [place], [address] Immature granulocytes/100 WB C Auto (Bld)Ordered By: Yaritza Leo on 01-30-2025 Immature granulocytes/100 WBC (Bld) 0.600 % 0.0-0.9 [facility] Magnesiumon 01-30-2025 Magnesium [Mass/Vol] 1.7 mg/dL Normal 1.5-2.2 [facility] Comment on above: Performed By: #### L 501.5200, L501.2300, L500.2500, L100.0100 ####[facility] [address] [place], [address] Magnesium measurement (mass/ volume)Ordered By: Yaritza Leo on 01-30-2025 Magnesium (Unsp spec) [Mass/Vol] 1.7 mg/dL 1.5-2.2 [facility] Monocyte percentageOrdered B y: Yaritza Leo on 01-30-2025 Monocytes/100 WBC (Bld) 18.5 % High 0-10 [facility] Comment on above: Performed By: #### L 501.5200, L501.2300, L500.2500, L100.0100 ####[facility] [address] [place], [address] Neutrophil percentageOrdered By: Yaritza Leo on 01-30-2025 Neutrophils/100 WBC (Bld) 53.2 % Normal 47-70 [facility] Comment on above: Performed By: #### L 501.5200, L501.2300, L500.2500, L100.0100 ####[facility] [address] [place], [address] Phosphoruson 01-30-2025 Phosphate [Mass/Vol] 2.7 mg/dL Normal 2.7-4.5 [facility] Comment on above: Performed By: #### L 501.5200, L501.2300, L500.2500, L100.0100 ####[facility] [address] [place], [address] Urine Cultureon 01-30-2025 URC Normal [facility] Comment on above: Performed By: #### M 100.2200 ####[facility] [address] [place], [address] Bedside Glucoseon 01-29-2025 FINGERSTICK GLU 174 mg/dL High 74-106 [facility] Comment on above: Result Comment: BRISA GEMENT OF PATIENT CARE PER NURSING PROTOCOL Performed By: #### L 501.080 ####[facility] [address] [place], [address] FINGERSTICK GLU 163 mg/dL High 74-106 [facility] Comment on above: Result Comment: BRISA GEMENT OF PATIENT CARE PER NURSING PROTOCOL Performed By: #### L 501.080 ####[facility] [address] [place], [address] FINGERSTICK GLU 196 mg/dL High 74-106 [facility] Comment on above: Result Comment: BRISA GEMENT OF PATIENT CARE PER NURSING PROTOCOL Performed By: #### L 501.080 ####[facility] [address] [place], [address] FINGERSTICK GLU 237 mg/dL High 74-106 [facility] Comment on above: Result Comment: BRISA GEMENT OF PATIENT CARE PER NURSING PROTOCOL Performed By: #### L 501.080 ####[facility] [address] [place], [address] FINGERSTICK GLU 172 mg/dL High 74-106 [facility] Comment on above: Result Comment: BRISA GEMENT OF PATIENT CARE PER NURSING PROTOCOL Performed By: #### L 501.080 ####[facility] [address] [place], [address] Bilirubin, totalOrdered By: Boone Izquierdo on 01-29-2025 Bilirubin [Mass/Vol] 1.81 mg/dL High 0.00-1.30 [facility] CBC W/Diff, Automatedon 01-03 Absolute Lymph 0.83 X10 3/uL Normal 0.83-4.51 [facility] Comment on above: Performed By: #### L 100.0100, L500.4050 ####[facility] [address] [place], [address] Absolute Neut 3.0 X10 3/uL Normal 2.0-7.7 [facility] Comment on above: Performed By: #### L 100.0100, L500.4050 ####[facility] [address] [place], [address] Basophils/100 WBC (Bld) 0.8 % Normal 0-1 [facility] Comment on above: Performed By: #### L 100.0100, L500.4050 ####[facility] [address] [place], [address] Eosinophils/100 WBC (Bld) 5.3 % High 0-5 [facility] Comment on above: Performed By: #### L 100.0100, L500.4050 ####[facility] [address] [place], [address] Erythrocyte distribution width (RBC) [Ratio] 18.4 % High 11.6-14.6 [facility] Comment on above: Performed By: #### L 100.0100, L500.4050 ####[facility] [address] [place], [address] Hematocrit (Bld) [Volume fraction] 24.8 % Low 40-54 [facility] Comment on above: Performed By: #### L 100.0100, L500.4050 ####[facility] [address] [place], [address] Hemoglobin (Bld) [Mass/Vol] 8.1 g/dL Low 13.0-16.5 [facility] Comment on above: Performed By: #### L 100.0100, L500.4050 ####[facility] [address] [place], [address] IG% 0.800 Normal 0.0-0.9 [facility] Comment on above: Result Comment: IG% - Immature Granulocytes (promyelocytes, myelocytes andmetamyelocytes) > 1% indicates that a LEFT SHIFT is Present. Performed By: #### L 100.0100, L500.4050 ####[facility] [address] [place], [address] Lymphocytes/100 WBC (Bld) 17.1 % Low 19-41 [facility] Comment on above: Performed By: #### L 100.0100, L500.4050 ####[facility] [address] [place], [address] MCH (RBC) [Entitic mass] 29.6 pg Normal 27.0-32.0 [facility] Comment on above: Performed By: #### L 100.0100, L500.4050 ####[facility] [address] [place], [address] MCHC (RBC) [Mass/Vol] 32.7 g/dL Normal 32-36 [facility] Comment on above: Performed By: #### L 100.0100, L500.4050 ####[facility] [address] [place], [address] MCV (RBC) [Entitic vol] 90.5 fL Normal 80-94 [place] Comment on above: Performed By: #### L 100.0100, L500.4050 ####[facility] [address] [place], [address] Monocytes/100 WBC (Bld) 15.2 % High 0-10 [place] Comment on above: Performed By: #### L 100.0100, L500.4050 ####[facility] [address] [place], [address] Neutrophils/100 WBC (Bld) 60.8 % Normal 47-70 [facility] Comment on above: Performed By: #### L 100.0100, L500.4050 ####[facility] [address] [place], [address] Nucleated RBC (Bld) [#/Vol] 0 10*3/uL Normal 0-5 [facility] Comment on above: Performed By: #### L 100.0100, L500.4050 ####[facility] [address] [place], [address] Platelet mean volume (Bld) [Entitic vol] 11.6 fL Normal 6.2-12.0 [facility] Comment on above: Performed By: #### L 100.0100, L500.4050 ####[facility] [address] [place], [address] Platelets (Bld) [#/Vol] 120 10*3/uL Low 150-450 [facility] Comment on above: Performed By: #### L 100.0100, L500.4050 ####[facility] [address] [place], [address] RBC (Bld) [#/Vol] 2.74 10*6/uL Low 4.6-6.2 [facility] Comment on above: Performed By: #### L 100.0100, L500.4050 ####[facility] [address] [place], [address] RDW SD 60.7 fl High 35.1-43.9 [facility] Comment on above: Performed By: #### L 100.0100, L500.4050 ####[facility] [address] [place], [address] WBC (Bld) [#/Vol] 4.9 10*3/uL Normal 4.4-11.[address] [facility] Comment on above: Performed By: #### L 100.0100, L500.4050 ####[facility] [address] [place], [address] Comprehensive Metabolic Prof [facility] 01-29-2025 Albumin [Mass/Vol] 2.3 g/dL Low 3.5-5.[address] [facility] Comment on above: Performed By: #### L 100.0100, L500.4050 ####[facility] [address] [place], [address] Albumin/Globulin [Mass ratio] 0.8 {ratio} Low 0.9-2.4 [facility] Comment on above: Performed By: #### L 100.0100, L500.4050 ####[facility] [address] [place], [address] ALK PHOS 180 U/L High 40-129 [facility] Comment on above: Performed By: #### L 100.0100, L500.4050 ####[facility] [address] [place], [address] ALT [Catalytic activity/Vol] 30 U/L Normal <=46 [facility] Comment on above: Performed By: #### L 100.0100, L500.4050 ####[facility] [address] [place], [address] AST [Catalytic activity/Vol] 52 U/L High <=37 [facility] Comment on above: Performed By: #### L 100.0100, L500.4050 ####[facility] [address] [place], [address] Bilirubin [Mass/Vol] 1.81 mg/dL High 0.00-1.30 [facility] Comment on above: Performed By: #### L 100.0100, L500.4050 ####[facility] [address] [place], [address] BUN/CRE 11.6 RATIO Normal 10-20 [facility] Comment on above: Performed By: #### L 100.0100, L500.4050 ####[facility] [address] [place], [address] Calcium [Mass/Vol] 8.8 mg/dL Normal 7.6-11.[address] [facility] Comment on above: Performed By: #### L 100.0100, L500.4050 ####[facility] [address] [place], [address] Chloride [Moles/Vol] 100 mmol/L Normal 98-108 [facility] Comment on above: Performed By: #### L 100.0100, L500.4050 ####[facility] [address] [place], [address] CO2 [Moles/Vol] 19.5 mmol/L Low 21.0-32.0 [facility] Comment on above: Performed By: #### L 100.0100, L500.4050 ####[facility] [address] [place], [address] Creatinine [Mass/Vol] 1.09 mg/dL Normal 0.70-1.20 [facility] Comment on above: Performed By: #### L 100.0100, L500.4050 ####[facility] [address] [place], [address] ECRCL 94.75 ml/min Normal 50-250 [facility] Comment on above: Performed By: #### L 100.0100, L500.4050 ####[facility] [address] [place], [address] GAP 14 Normal 5-15 [facility] Comment on above: Performed By: #### L 100.0100, L500.4050 ####[facility] [address] [place], [address] GFR/1.73 sq M.predicted among non-blacks MDRD (S/P/Bld) [Vol rate/Area] 79 mL/min/{1.73_m2} Normal >60 [facility] Comment on above: Result Comment: mL/m in/1.73m2 CKD-EPI Creatinine Equation (2020) Performed By: #### L 100.0100, L500.4050 ####[facility] [address] [place], [address] Globulin (S) [Mass/Vol] 3.1 g/dL Normal 2.2-4.2 [place] Comment on above: Performed By: #### L 100.0100, L500.4050 ####[facility] [address] [place], [address] Glucose [Mass/Vol] 265 mg/dL High 70-[address] [facility] Comment on above: Performed By: #### L 100.0100, L500.4050 ####[facility] [address] [place], [address] Potassium [Moles/Vol] 3.5 mmol/L Normal 3.3-5.1 [facility] Comment on above: Performed By: #### L 100.0100, L500.4050 ####[facility] [address] [place], [address] Sodium [Moles/Vol] 133 mmol/L Normal 133-[address] [facility] Comment on above: Performed By: #### L 100.0100, L500.4050 ####[facility] [address] [place], [address] T PROT 5.4 g/dL Low 5.9-8.4 [facility] Comment on above: Performed By: #### L 100.0100, L500.4050 ####[facility] [address] [place], [address] Urea nitrogen [Mass/Vol] 13 mg/dL Normal 4-19 [facility] Comment on above: Performed By: #### L 100.0100, L500.4050 ####[facility] [address] [place], [address] No Panel InformationOrdered By: Boone Izquierdo on 01-29-2025 52 U/L High <38 [facility] Serum globulin measurementOr dered By: Boone Izquierdo on 01-29-2025 Globulin (S) [Mass/Vol] 3.1 g/dL 2.2-4.2 [facility] Serum or plasma alanine thomas otransferase (ALT) measurementOrdered By: Boone Izquierdo on 01-29-2025 ALT [Catalytic activity/Vol] 30 U/L <47 [facility] Serum or plasma albumin roosevelt urement (mass/volume)Ordered By: Boone Izquierdo on 01-29-2025 Albumin [Mass/Vol] 2.3 g/dL Low 3.5-5.[address] [facility] Serum or plasma albumin/glob ulin mass ratioOrdered By: Boone Izquierdo on 01-29-2025 Albumin/Globulin [Mass ratio] 0.8 {ratio} Low 0.9-2.4 [facility] Serum or plasma alkaline kendrick sphatase measurementOrdered By: Boone Izquierdo on 01-29-2025 ALP [Catalytic activity/Vol] 180 U/L High 40-129 [facility] Total proteinOrdered By: Juanita Izquierdo on 01-29-2025 Protein [Mass/Vol] 5.4 g/dL Low 5.9-8.[address] [facility] Abdomen/Pelvis W IV Cont ONL Yon 01-28-2025 Abdomen/Pelvis W IV Cont ONLY Normal [facility] Absolute lymphocyte countOrd ered By: Danny Hutton on 01-28-2025 Lymphocytes Auto (Unsp spec) [#/Vol] 0.98 10*3/uL 0.83-4.51 [facility] Activated partial thrombopla stin time (aPTT) in platelet poor plasma by coagulation aOrdered By: Danny Huttno on 01-28-2025 aPTT Coag (PPP) [Time] 38.4 s High 24.1-36.2 [facility] Ammoniaon 01-28-2025 Ammonia (P) [Moles/Vol] 108.0 umol/L High 16-60 [facility] Comment on above: Order Comment: REDRA W. PREVIOUS SPECIMEN REJECTED DUE TOHEMOLYSIS. 01/28/25 0[address]. Performed By: #### L 503.5510 ####[facility] [address] [place], [address] Anion gap in Serum or Plasma Ordered By: Danny Hutton on 01-28-2025 Anion gap [Moles/Vol] 14 mmol/L 5-15 [facility] Automated lymphocyte count a s percentage of total leukocytesOrdered By: Danny Hutton on 01-28-2025 Lymphocytes/100 WBC Auto (Unsp spec) 18.8 % Low 19-41 [facility] BUN/creatinine ratioOrdered By: Danny Hutton on 01-28-2025 Urea nitrogen/Creatinine [Mass ratio] 12.8 mg/mg 10-20 [facility] Basic Metabolic Profile (BMP )on 01-28-2025 CO2 [Moles/Vol] 22.1 mmol/L Normal 21.0-32.0 [facility] Comment on above: Performed By: #### L 500.3400, L503.6005, L300.3900, L500.2500, L501.2450, L501.5200, L300.4310, L501.4021, L100.0100, L503.7505 ####[facility] [address] [place], [place], [address] GAP 14 Normal 5-15 [facility] Comment on above: Performed By: #### L 500.3400, L503.6005, L300.3900, L500.2500, L501.2450, L501.5200, L300.4310, L501.4021, L100.0100, L503.7505 ####[facility] [address] [place], [place], [phone] Basophil percentageOrdered B y: Danny Hutton on 01-28-2025 Basophils/100 WBC (Bld) 0.8 % 0-1 [facility] Bedside Glucoseon 01-28-2025 FINGERSTICK GLU 102 mg/dL Normal 74-106 [facility] Comment on above: Result Comment: BRISA GEMENT OF PATIENT CARE PER NURSING PROTOCOL Performed By: #### L 501.080 ####[facility] [address] [place], [place], [address] FINGERSTICK GLU 96 mg/dL Normal 74-106 [facility] Comment on above: Result Comment: BRISA GEMENT OF PATIENT CARE PER NURSING PROTOCOL Performed By: #### L 501.080 ####[facility] [address] [place], [place], [phone] Bilirubin Test strip Ql (U)O rdered By: Danny Hutton on 01-28-2025 Bilirubin Ql (U) Negative Negative [facility] Bilirubin directOrdered By: Danny Hutton on 01-28-2025 Bilirubin.direct [Mass/Vol] 1.04 mg/dL High 0.00-0.30 [facility] Bilirubin, totalOrdered By: Danny [facility] MexicoLucero on 01-28-2025 Bilirubin [Mass/Vol] 1.91 mg/dL High 0.00-1.30 [facility] Blood cultureOrdered By: Silvano jersey ChandraOrly on 01-28-2025 Bacteria identified Cx Nom (Bld) No growth in 5 days. [facility] Bacteria identified Cx Nom (Bld) No growth in 5 days. [facility] CBC W/Diff, Automatedon 01-03 Absolute Lymph 0.98 X10 3/uL Normal 0.83-4.51 [facility] Comment on above: Performed By: #### L 500.3400, L503.6005, L300.3900, L500.2500, L501.2450, L501.5200, L300.4310, L501.4021, L100.0100, L503.7505 ####[facility] [address] [place], [place], [phone] Absolute Neut 3.0 X10 3/uL Normal 2.0-7.7 [facility] Comment on above: Performed By: #### L 500.3400, L503.6005, L300.3900, L500.2500, L501.2450, L501.5200, L300.4310, L501.4021, L100.0100, L503.7505 ####[facility] [address] [place], [address] Basophils/100 WBC (Bld) 0.8 % Normal 0-1 [facility] Comment on above: Performed By: #### L 500.3400, L503.6005, L300.3900, L500.2500, L501.2450, L501.5200, L300.4310, L501.4021, L100.0100, L503.7505 ####[facility] [address] [place], [place], [phone] Eosinophils/100 WBC (Bld) 4.6 % Normal 0-5 [facility] Comment on above: Performed By: #### L 500.3400, L503.6005, L300.3900, L500.2500, L501.2450, L501.5200, L300.4310, L501.4021, L100.0100, L503.7505 ####[facility] [address] [place], [address]([phone]) Erythrocyte distribution width (RBC) [Ratio] 18.4 % High 11.6-14.6 [facility] Comment on above: Performed By: #### L 500.3400, L503.6005, L300.3900, L500.2500, L501.2450, L501.5200, L300.4310, L501.4021, L100.0100, L503.7505 ####[facility] [address] [place], [phone] Hematocrit (Bld) [Volume fraction] 25.2 % Low 40-54 [facility] Comment on above: Performed By: #### L 500.3400, L503.6005, L300.3900, L500.2500, L501.2450, L501.5200, L300.4310, L501.4021, L100.0100, L503.7505 ####[facility] [address] [place], [place], [phone]) Hemoglobin (Bld) [Mass/Vol] 8.3 g/dL Low 13.0-16.5 [facility] Comment on above: Performed By: #### L 500.3400, L503.6005, L300.3900, L500.2500, L501.2450, L501.5200, L300.4310, L501.4021, L100.0100, L503.7505 ####[facility] [address] [place], [address] IG% 1.300 High 0.0-0.9 [facility] Comment on above: Result Comment: IG% - Immature Granulocytes (promyelocytes, myelocytes andmetamyelocytes) > 1% indicates that a LEFT SHIFT is Present. Performed By: #### L 500.3400, L503.6005, L300.3900, L500.2500, L501.2450, L501.5200, L300.4310, L501.4021, L100.0100, L503.7505 ####[facility] [address] [place], [place], [phone] Lymphocytes/100 WBC (Bld) 18.8 % Low 19-41 [facility] Comment on above: Performed By: #### L 500.3400, L503.6005, L300.3900, L500.2500, L501.2450, L501.5200, L300.4310, L501.4021, L100.0100, L503.7505 ####[facility] [address] [place], [address] MCH (RBC) [Entitic mass] 29.4 pg Normal 27.0-32.0 [facility] Comment on above: Performed By: #### L 500.3400, L503.6005, L300.3900, L500.2500, L501.2450, L501.5200, L300.4310, L501.4021, L100.0100, L503.7505 ####[facility] [address] [place], [address] MCHC (RBC) [Mass/Vol] 32.9 g/dL Normal 32-36 [facility] Comment on above: Performed By: #### L 500.3400, L503.6005, L300.3900, L500.2500, L501.2450, L501.5200, L300.4310, L501.4021, L100.0100, L503.7505 ####[facility] [address] [place], [address] MCV (RBC) [Entitic vol] 89.4 fL Normal 80-94 [facility] Comment on above: Performed By: #### L 500.3400, L503.6005, L300.3900, L500.2500, L501.2450, L501.5200, L300.4310, L501.4021, L100.0100, L503.7505 ####[facility] [address] [place], [address] Monocytes/100 WBC (Bld) 16.7 % High 0-10 [facility] Comment on above: Performed By: #### L 500.3400, L503.6005, L300.3900, L500.2500, L501.2450, L501.5200, L300.4310, L501.4021, L100.0100, L503.7505 ####[facility] [address] [place], [address] Neutrophils/100 WBC (Bld) 57.8 % Normal 47-70 [facility] Comment on above: Performed By: #### L 500.3400, L503.6005, L300.3900, L500.2500, L501.2450, L501.5200, L300.4310, L501.4021, L100.0100, L503.7505 ####[facility] [address] [place], [address] Nucleated RBC (Bld) [#/Vol] 0 10*3/uL Normal 0-5 [facility] Rehabilitation Comment on above: Performed By: #### L 500.3400, L503.6005, L300.3900, L500.2500, L501.2450, L501.5200, L300.4310, L501.4021, L100.0100, L503.7505 ####[facility] [address] [place], [address] Platelet mean volume (Bld) [Entitic vol] 11.5 fL Normal 6.2-12.0 [facility] Comment on above: Performed By: #### L 500.3400, L503.6005, L300.3900, L500.2500, L501.2450, L501.5200, L300.4310, L501.4021, L100.0100, L503.7505 ####[facility] [address] [place], [place], [phone]) Platelets (Bld) [#/Vol] 115 10*3/uL Low 150-450 [facility] Comment on above: Performed By: #### L 500.3400, L503.6005, L300.3900, L500.2500, L501.2450, L501.5200, L300.4310, L501.4021, L100.0100, L503.7505 ####[facility] [address] [place], [place], [phone](930) RBC (Bld) [#/Vol] 2.82 10*6/uL Low 4.6-6.2 [facility] Comment on above: Performed By: #### L 500.3400, L503.6005, L300.3900, L500.2500, L501.2450, L501.5200, L300.4310, L501.4021, L100.0100, L503.7505 ####[facility] [address] [place], [place], [phone](451) RDW SD 60.7 fl High 35.1-43.9 [facility] Comment on above: Performed By: #### L 500.3400, L503.6005, L300.3900, L500.2500, L501.2450, L501.5200, L300.4310, L501.4021, L100.0100, L503.7505 ####[facility] [address] [place], [place], [phone] WBC (Bld) [#/Vol] 5.2 10*3/uL Normal 4.4-11.[address] [facility] Comment on above: Performed By: #### L 500.3400, L503.6005, L300.3900, L500.2500, L501.2450, L501.5200, L300.4310, L501.4021, L100.0100, L503.7505 ####[facility] [address] [place], [place], [phone] Carbon dioxide, total [Moles /volume] in Central venous bloodOrdered By: Danny Hutton on 01-28-2025 CO2 [Moles/Vol] 22.1 mmol/L 21.0-32.0 [facility] Chest PA and Lateralon 01-28 Chest PA and Lateral Normal [facility] Chloride assayOrdered By: Darin Hutton on 01-28-2025 Chloride [Moles/Vol] 95 mmol/L Low 98-108 [facility] Emergency Department Summary on 01-28-2025 Emergency Department Summary Normal [facility] Eosinophil percentageOrdered By: Danny Hutton on 01-28-2025 Eosinophils/100 WBC (Bld) 4.6 % 0-5 [facility] Erythrocyte distribution wid th ratioOrdered By: Danny Hutton on 01-28-2025 Erythrocyte distribution width (RBC) [Ratio] 18.4 % High 11.6-14.6 [facility] Erythrocyte distribution wid th standard deviationOrdered By: Danny Barker on 01-28-2025 Erythrocyte distribution width (RBC) [Ratio] 60.7 fl High 35.1-43.9 [facility] Glomerular filtration rate ( GFR) estimation/1.73 sq m using serum, plasma, or whole bOrdered By: Danny Hutton on 01-28-2025 GFR/1.73 sq M.predicted among non-blacks MDRD (S/P/Bld) [Vol rate/Area] 73 mL/min/{1.73_m2} >60 [facility] H AND P Exam - Hospitaliston 01-28-2025 H&P Exam - Hospitalist Normal [facility] Hematocrit Auto (Bld) [Volum e fraction]Ordered By: [facility] on 01-28-2025 Hematocrit (Bld) [Volume fraction] 25.2 % Low 40-54 [facility] Hemoglobin measurementOrdere d By: [facility]ukas[facility]Lucero on 01-28-2025 Hemoglobin (Bld) [Mass/Vol] 8.3 g/dL Low 13.0-16.5 [facility] Immature granulocytes/100 WB C Auto (Bld)Ordered By: [facility] on 01-28-2025 Immature granulocytes/100 WBC (Bld) 1.300 % High 0.0-0.9 [facility] Influenza virus A and B and SARS-CoV-2 (COVID-19) and Respiratory syncytial virus RNAOrdered By: [facility] RehabilitationbrianLukaszLucero on 01-28-2025 SARS-CoV-2 (COVID-19) RNA ANANTH+probe Ql (Unsp spec) [facility] Ketones Test strip Ql (U)Ord ered By: [facility] on 01-28-2025 Ketones Ql (U) Negative Negative [facility] L499.0042on 01-28-2025 Trop T High Sen Normal <=22 [facility] Comment on above: Result Comment: Devonte goodwin via OM: Ordered Performed By: #### L 499.0042 ####[facility] [address] [place], [address] L501.4021on 01-28-2025 Trop T High Sen 13 ng/L Normal <=22 [facility] Comment on above: Performed By: #### L 500.3400, L503.6005, L300.3900, L500.2500, L501.2450, L501.5200, L300.4310, L501.4021, L100.0100, L503.7505 ####[facility] [address] [place], [address] L503.7505on 01-28-2025 Natriuretic peptide B (Bld) [Mass/Vol] 140 pg/mL Normal <=900 [facility] Comment on above: Result Comment: Hear t Failure Unlikely: < 300 pg/mLHeart Failure Likely< 50 Years: > 450 pg/mL50-75 Years: > 900 pg/mL>75 Years: > 1800 pg/mL Performed By: #### L 500.3400, L503.6005, L300.3900, L500.2500, L501.2450, L501.5200, L300.4310, L501.4021, L100.0100, L503.7505 ####[facility] [address] [place], [place], [phone] Lactic Acidon 01-28-2025 Lactate [Moles/Vol] 2.8 mmol/L Invalid Interpretation Code 0.0-2.0 [facility] Comment on above: Result Comment: Crit ical Result(s) Called at: 01/28/2025-09:07 by: Jennifer Marsh.??Results read back by same. Performed By: #### L 503.6005 ####[facility] [address] [place], [place], [phone] Lactate [Moles/Vol] 3.4 mmol/L Invalid Interpretation Code 0.0-2.0 [facility] Comment on above: Order Comment: Y Result Comment: Crit ical Result(s) Called at: 01/28/2025-04:24 by: JamesWhite to Arianna Sparr.??Results read back by same. Performed By: #### L 500.3400, L503.6005, L300.3900, L500.2500, L501.2450, L501.5200, L300.4310, L501.4021, L100.0100, L503.7505 ####[facility] [address] [place], [place], [phone] Lipaseon 01-28-2025 Lipase [Catalytic activity/Vol] 33 U/L Normal 13-75 [facility] Comment on above: Result Comment: Siddhartha bhat note:LIPASE revised reference range effective 22.New Lipase methodology. Expected to produce lower valuesthan the previous assay method.NEW Reference Range: 13 - 75 U/L Performed By: #### L 500.3400, L503.6005, L300.3900, L500.2500, L501.2450, L501.5200, L300.4310, L501.4021, L100.0100, L503.7505 ####[facility] [address] [place], [place], [phone] Liver Profileon 01-28-2025 Albumin [Mass/Vol] 2.5 g/dL Low 3.5-5.[address] [facility] Comment on above: Performed By: #### L 500.3400, L503.6005, L300.3900, L500.2500, L501.2450, L501.5200, L300.4310, L501.4021, L100.0100, L503.7505 ####[facility] [address] [place], [place], [phone] ALK PHOS 201 U/L High 40-129 [facility] Comment on above: Performed By: #### L 500.3400, L503.6005, L300.3900, L500.2500, L501.2450, L501.5200, L300.4310, L501.4021, L100.0100, L503.7505 ####[facility] [address] [place], [address] ALT [Catalytic activity/Vol] 31 U/L Normal <=46 [facility] Comment on above: Performed By: #### L 500.3400, L503.6005, L300.3900, L500.2500, L501.2450, L501.5200, L300.4310, L501.4021, L100.0100, L503.7505 ####[facility] [address] [place], [address] AST [Catalytic activity/Vol] 58 U/L High <=37 [facility] Comment on above: Performed By: #### L 500.3400, L503.6005, L300.3900, L500.2500, L501.2450, L501.5200, L300.4310, L501.4021, L100.0100, L503.7505 ####[facility] [address] [place], [place], [phone] Bilirubin [Mass/Vol] 1.91 mg/dL High 0.00-1.30 [facility] Comment on above: Performed By: #### L 500.3400, L503.6005, L300.3900, L500.2500, L501.2450, L501.5200, L300.4310, L501.4021, L100.0100, L503.7505 ####[facility] [address] [place], [place], [phone] Bilirubin.direct [Mass/Vol] 1.04 mg/dL High 0.00-0.30 [facility] Comment on above: Performed By: #### L 500.3400, L503.6005, L300.3900, L500.2500, L501.2450, L501.5200, L300.4310, L501.4021, L100.0100, L503.7505 ####[facility] [address] [place], [address] Globulin (S) [Mass/Vol] 3.3 g/dL Normal 2.2-4.2 [place] Comment on above: Performed By: #### L 500.3400, L503.6005, L300.3900, L500.2500, L501.2450, L501.5200, L300.4310, L501.4021, L100.0100, L503.7505 ####[facility] [address] [place], [address] T PROT 5.9 g/dL Normal 5.9-8.4 [facility] Comment on above: Performed By: #### L 500.3400, L503.6005, L300.3900, L500.2500, L501.2450, L501.5200, L300.4310, L501.4021, L100.0100, L503.7505 ####[facility] [address] [facility] [place], [address] M100.678on 01-28-2025 M100.678 SARS-CoV-2 (COVID 19 ) Negative INFLUENZA A Negative INFLUENZA B Negative RSV PCR Negative Normal [facility] Comment on above: Performed By: #### M 100.678 ####[facility] [address] [place], [address] MCV (mean corpuscular volume ) determinationOrdered By: Danny Hutton on 01-28-2025 MCV (RBC) [Entitic vol] 89.4 fL 80-94 [facility] Magnesiumon 01-28-2025 Magnesium [Mass/Vol] 1.7 mg/dL Normal 1.5-2.2 [facility] Comment on above: Performed By: #### L 500.3400, L503.6005, L300.3900, L500.2500, L501.2450, L501.5200, L300.4310, L501.4021, L100.0100, L503.7505 ####[facility] [address] [place], [address] Magnesium measurement (mass/ volume)Ordered By: Danny Hutton on 01-28-2025 Magnesium (Unsp spec) [Mass/Vol] 1.7 mg/dL 1.5-2.2 [facility] Mean corpuscular hemoglobin (MCH) determinationOrdered By: Danny Hutton on 01-28-2025 MCH (RBC) [Entitic mass] 29.4 pg 27.0-32.0 [facility] Monocyte percentageOrdered B y: Danny Hutton on 01-28-2025 Monocytes/100 WBC (Bld) 16.7 % High 0-10 [facility] Mucus LM Ql (Urine sed)Order ed By: Danny Hutton on 01-28-2025 Mucus Ql (Urine sed) 0 SEEN /hpf [facility] Natriuretic peptide.B prohor prachi N-Terminal [Mass/volume] in Serum or PlasmaOrdered By: Danny Hutton on 01-28-2025 Natriuretic peptide.B prohormone N-Terminal [Mass/Vol] 140 pg/mL <900 [facility] Neutrophil percentageOrdered By: Sardinia Anni on 01-28-2025 Neutrophils/100 WBC (Bld) 57.8 % 47-70 [facility] Nitrite Test strip Ql (U)Ord ered By: Danny Hutton on 01-28-2025 Nitrite Ql (U) Negative Negative [facility] No Panel InformationOrdered By: [facility] RehabilitationJack on 01-28-2025 58 U/L High <38 [facility] Partial Thromboplast Timeon 01-28-2025 aPTT Coag (Bld) [Time] 38.4 s High 24.1-36.2 [facility] Comment on above: Performed By: #### L 500.3400, L503.6005, L300.3900, L500.2500, L501.2450, L501.5200, L300.4310, L501.4021, L100.0100, L503.7505 ####[facility] [address] [place], [address] Platelet countOrdered By: Darin Hutton on 01-28-2025 Platelets (Bld) [#/Vol] 115 10*3/uL Low 150-450 [facility] Potassium measurement (mass/ volume)Ordered By: Danny Hutton on 01-28-2025 Potassium (Unsp spec) [Mass/Vol] 3.4 mmol/L 3.3-5.1 [facility] Protein Test strip Ql (U)Ord ered By: Danny Hutton on 01-28-2025 Protein Ql (U) 100 mg/dl High Negative [facility] Prothrombin Time w/INRon INR Coag (PPP) [Relative time] 1.7 {INR} Normal [facility] Comment on above: Performed By: #### L 500.3400, L503.6005, L300.3900, L500.2500, L501.2450, L501.5200, L300.4310, L501.4021, L100.0100, L503.7505 ####[facility] [address] [place], [address] PT Coag (PPP) [Time] 20.0 s High 11.7-14.9 [facility] Comment on above: Performed By: #### L 500.3400, L503.6005, L300.3900, L500.2500, L501.2450, L501.5200, L300.4310, L501.4021, L100.0100, L503.7505 ####[facility] [address] [place], [address] Prothrombin timeOrdered By: Danny Hutton on 01-28-2025 PT Coag (PPP) [Time] 20.0 s High 11.7-14.9 [facility] RBC Auto (Bld) [#/Vol]Ordere d By: Danny Hutton on 01-28-2025 RBC (Bld) [#/Vol] 2.82 10*6/uL Low 4.6-6.2 [facility] Serum creatinine measurement (mass/volume)Ordered By: Danny Hutton on 01-28-2025 Creatinine [Mass/Vol] 1.16 mg/dL 0.70-1.20 [facility] Serum globulin measurementOr dered By: Danny Hutton on 01-28-2025 Globulin (S) [Mass/Vol] 3.3 g/dL 2.2-4.2 [facility] Serum glucose measurement (m ass/volume)Ordered By: Danny Hutton on 01-28-2025 Glucose [Mass/Vol] 93 mg/dL 70-[address] [facility] Serum or plasma alanine thomas otransferase (ALT) measurementOrdered By: Danny Hutton on 01-28-2025 ALT [Catalytic activity/Vol] 31 U/L <47 [facility] Serum or plasma albumin roosevelt urement (mass/volume)Ordered By: Danny Barker on 01-28-2025 Albumin [Mass/Vol] 2.5 g/dL Low 3.5-5.[address] [facility] Serum or plasma alkaline kendrick sphatase measurementOrdered By: Danny Hutton on 01-28-2025 ALP [Catalytic activity/Vol] 201 U/L High 40-129 [facility] Serum or plasma calcium roosevelt urement (mass/volume)Ordered By: Danny Barker on 01-28-2025 Calcium [Mass/Vol] 8.9 mg/dL 7.6-11.[address] [facility] Serum or plasma urea nitroge n measurement (mass/volume)Ordered By: Danny Hutton on 01-28-2025 Urea nitrogen [Mass/Vol] 15 mg/dL 4-19 [facility] Sodium levelOrdered By: Srinath Hutton on 01-28-2025 Sodium [Moles/Vol] 131 mmol/L Low 133-[address] [facility] Squamous epithelial cells de tection in urine sediment by light microscopyOrdered By: Danny Hutton on 01-28-2025 Epithelial cells.squamous LM Ql (Urine sed) 0 SEEN /hpf 0-5 [facility] Total proteinOrdered By: Silvano Hutton on 01-28-2025 Protein [Mass/Vol] 5.9 g/dL 5.9-8.[address] [facility] Troponin T.cardiac [Mass/vol ume] in Serum or Plasma by High sensitivity methodOrdered By: Danny Hutton on 01-28-2025 Troponin T.cardiac High sensitivity method [Mass/Vol] 13 ng/L <22 [facility] Urinalysis, Completeon 01-28 BACTERIA 1+ /hpf Normal None Seen [facility] Comment on above: Order Comment: COLOR OF URINE MAY AFFECT DIPSTICK RESULTS.WEIGHT CHECKER TO SPECIFY Performed By: #### L 400.0001 ####[facility] [address] [place] [address] RBC > 100 SEEN Normal [address] [place] [address] Comment on above: Order Comment: COLOR OF URINE MAY AFFECT DIPSTICK RESULTS.WEIGHT CHECKER TO SPECIFY Performed By: #### L 400.0001 ####[facility] [address] [facility] [address] WBC 10-25 SEEN Normal [address] Comment on above: Order Comment: COLOR OF URINE MAY AFFECT DIPSTICK RESULTS.WEIGHT CHECKER TO SPECIFY Performed By: #### L 400.0001 ####[facility] [address] [facility] [address] EPI,SQUAMOUS 0 SEEN Normal [address] [place] [address] Comment on above: Order Comment: COLOR OF URINE MAY AFFECT DIPSTICK RESULTS.WEIGHT CHECKER TO SPECIFY Performed By: #### L 400.0001 ####[facility] [address] [place], [address] Mucus Ql (Urine sed) 0 SEEN Normal [facility] Comment on above: Order Comment: COLOR OF URINE MAY AFFECT DIPSTICK RESULTS.WEIGHT CHECKER TO SPECIFY Performed By: #### L 400.0001 ####[facility] [address] [place], [address] Urine clarityOrdered By: Silvano Hutton on 01-28-2025 Clarity (U) Cloudy Clear [facility] Urine color determinationOrd ered By: Danny Hutton on 01-28-2025 Color (U) Lexis Yellow [facility] Urine cultureOrdered By: Silvano Hutton on 01-28-2025 Bacteria identified Cx Nom (U) Vancomycin Resist. E. faecalis Abnormal [facility] Bacteria identified Cx Nom (U) GNR lactose undercoater Abnormal [facility] Urine glucose detectionOrder ed By: Danny Hutton on 01-28-2025 Glucose Ql (U) Normal mg/dl Normal [facility] Urine leukocyte esterase det ection by dipstickOrdered By: Danny Hutton on 01-28-2025 Leukocyte esterase Test strip Ql (U) 500 /ul High Negative [facility] Urine pHOrdered By: Danny Santiago on 01-28-2025 pH (U) 8.0 [pH] 5.0 - 8.0 [facility] Urine sediment bacteria coun t by microscopy (number/high power field)Ordered By: Danny Hutton on 01-28-2025 Bacteria LM.HPF (Urine sed) [#/Area] 1 /[HPF] None Seen [facility] Urine specific gravity measu rementOrdered By: Danny Hutton on 01-28-2025 Specific gravity (U) [Rel density] 1.015 1.002-1.030 [facility] Urine urobilinogen measureme ntOrdered By: Danny Hutton on 01-28-2025 Urobilinogen Ql (U) Normal mg/dl Normal [facility] Venous blood ammonia measure mentOrdered By: Danny Hutton on 01-28-2025 Ammonia (P) [Moles/Vol] 108.0 umol/L High 16-60 [facility] White blood cell (WBC) count Ordered By: Danny Hutton on 01-28-2025 WBC (Bld) [#/Vol] 5.2 10*3/uL 4.4-11.[address] [facility] White blood cell countOrdere d By: Danny Hutton on 01-28-2025 White blood cell count 10-25 SEEN /hpf 0-5 [facility] Body Fluid Cell Count+Diffon 01-25-2025 MESOTHELIAL 7 Normal [facility] Comment on above: Order Comment: The r eference range and other method performancespecifications have not been established for this bodyfluid. The test must be integrated into the clinicalcontext for interpretation. Result Comment: AMENDED REPORT 01/25/25 1125 OTHER CELL/BF previously reported as: 7 % Performed By: #### L 200.0200, L350.1000, M100.2900, M100.4001, M100.1999 ####[facility] [address] [place], [address] Culture, Anaerobic Any Sourc iliana 01-24-2025 CUAN No growth in 5 days. Normal [facility] Comment on above: Performed By: #### L 200.0200, L350.1000, M100.2900, M100.4001, M100.2000 ####[facility] [address] [place], [address] Anion gap in Serum or Plasma Ordered By: Anurag Irene on 01-21-2025 Anion gap [Moles/Vol] 7 mmol/L - [facility] BUN/creatinine ratioOrdered By: Anurag Irene on 01-21-2025 Urea nitrogen/Creatinine [Mass ratio] 15.6 mg/mg 05-23 [facility] Bedside Glucoseon 01-21-2025 FINGERSTICK GLU 151 mg/dL High 74-106 [facility] Comment on above: Result Comment: BRISA MOROCHO OF PATIENT CARE PER NURSING PROTOCOL Performed By: #### L 501.080 ####[facility] [address] [place], [address] FINGERSTICK GLU 199 mg/dL High 74-106 [facility] Comment on above: Result Comment: BRISA MOROCHO OF PATIENT CARE PER NURSING PROTOCOL Performed By: #### L 501.080 ####[facility] [address] [place], [address] Bilirubin, totalOrdered By: Anurag Irene on 01-21-2025 Bilirubin [Mass/Vol] 1.52 mg/dL High 0.00-1.30 [facility] Carbon dioxide, total [Moles /volume] in Central venous bloodOrdered By: Anurag Irene on 01-21-2025 CO2 [Moles/Vol] 29.7 mmol/L 21.0-32.0 [facility] Chloride assayOrdered By: Francois Irene on 01-21-2025 Chloride [Moles/Vol] 96 mmol/L Low 98-108 [facility] Comprehensive Metabolic Prof ilon 01-21-2025 Albumin [Mass/Vol] 2.1 g/dL Low 3.5-5.[address] [facility] Comment on above: Performed By: #### L 500.4050 ####[facility] [address] [place], [address] Albumin/Globulin [Mass ratio] 0.8 {ratio} Low 0.9-2.4 [facility] Comment on above: Performed By: #### L 500.4050 ####[facility] [address] [place], [address] ALK PHOS 204 U/L High 40-129 [facility] Comment on above: Performed By: #### L 500.4050 ####[facility] [address] [place], [address] ALT [Catalytic activity/Vol] 28 U/L Normal <=46 [facility] Comment on above: Performed By: #### L 500.4050 ####[facility] [address] [place], [address] AST [Catalytic activity/Vol] 48 U/L High <=37 [facility] Comment on above: Performed By: #### L 500.4050 ####[facility] [address] [place], [address] Bilirubin [Mass/Vol] 1.52 mg/dL High 0.00-1.30 [facility] Comment on above: Performed By: #### L 500.4050 ####[facility] [address] [place], [address] BUN/CRE 15.6 RATIO Normal 10-20 [facility] Comment on above: Performed By: #### L 500.4050 ####[facility] [facility] [address] [place], [address] Calcium [Mass/Vol] 8.1 mg/dL Normal 7.6-11.[address] [facility] Comment on above: Performed By: #### L 500.4050 ####[facility] [address] [place], [address] Chloride [Moles/Vol] 96 mmol/L Low 98-108 [facility] Comment on above: Performed By: #### L 500.4050 ####[facility] [address] [place], [address] CO2 [Moles/Vol] 29.7 mmol/L Normal 21.0-32.0 [facility] Comment on above: Performed By: #### L 500.4050 ####[facility] [address] [place], [address] Creatinine [Mass/Vol] 0.86 mg/dL Normal 0.70-1.20 [facility] Comment on above: Performed By: #### L 500.4050 ####[facility] [address] [place], [address] ECRCL 114.50 ml/min Normal 50-250 [facility] Comment on above: Performed By: #### L 500.4050 ####[facility] [address] [place], [address] GAP 7 Normal 5-15 [facility] Comment on above: Performed By: #### L 500.4050 ####[facility] [address] [place], [address] GFR/1.73 sq M.predicted among non-blacks MDRD (S/P/Bld) [Vol rate/Area] 100 mL/min/{1.73_m2} Normal >60 [facility] Comment on above: Result Comment: mL/m in/1.73m2 CKD-EPI Creatinine Equation (2020) Performed By: #### L 500.4050 ####[facility] [address] [place], [address] Globulin (S) [Mass/Vol] 2.6 g/dL Normal 2.2-4.2 [place] Comment on above: Performed By: #### L 500.4050 ####[facility] [address] [place], [address] Glucose [Mass/Vol] 199 mg/dL High 70-[address] [facility] Comment on above: Performed By: #### L 500.4050 ####[facility] [address] [place], [address] Potassium [Moles/Vol] 3.1 mmol/L Low 3.3-5.1 [facility] Comment on above: Performed By: #### L 500.4050 ####[facility] [address] [place], [address] Sodium [Moles/Vol] 133 mmol/L Normal 133-[address] [facility] Comment on above: Performed By: #### L 500.4050 ####[facility] [address] [place], [address] T PROT 4.7 g/dL Low 5.9-8.4 [facility] Comment on above: Performed By: #### L 500.4050 ####[facility] [address] [place], [address] Urea nitrogen [Mass/Vol] 13 mg/dL Normal 4-19 [facility] Comment on above: Performed By: #### L 500.4050 ####[facility] [address] [place], [place], [id number] Glomerular filtration rate ( GFR) estimation/1.73 sq m using serum, plasma, or whole bOrdered By: Anurag Irnee on 01-21-2025 GFR/1.73 sq M.predicted among non-blacks MDRD (S/P/Bld) [Vol rate/Area] 100 mL/min/{1.73_m2} >60 [facility] Gl[facility] deOrdered By: Anurag Irene on 01-21-2025 Glucose [Mass/Vol] 151 mg/dL High 74-[address] [facility] No Panel InformationOrdered By: Anurag Irene on 01-21-2025 48 U/L High <38 [facility] Potassium measurement (mass/ volume)Ordered By: Anurag Irene on 01-21-2025 Potassium (Unsp spec) [Mass/Vol] 3.1 mmol/L Low 3.3-5.1 [facility] Serum creatinine measurement (mass/volume)Ordered By: Anurag Irene on 01-21-2025 Creatinine [Mass/Vol] 0.86 mg/dL 0.70-1.20 [facility] Serum globulin measurementOr dered By: Anurag Irene on 01-21-2025 Globulin (S) [Mass/Vol] 2.6 g/dL 2.2-4.2 [facility] Serum glucose measurement (m ass/volume)Ordered By: Anurag Irene on 01-21-2025 Glucose [Mass/Vol] 199 mg/dL High 70-[address] [facility] Serum or plasma alanine thomas otransferase (ALT) measurementOrdered By: Anurag Irene on 01-21-2025 ALT [Catalytic activity/Vol] 28 U/L <47 [facility] Serum or plasma albumin roosevelt urement (mass/volume)Ordered By: Anurag Irene on 01-21-2025 Albumin [Mass/Vol] 2.1 g/dL Low 3.5-5.[address] [facility] Serum or plasma albumin/glob ulin mass ratioOrdered By: Anurag Irene on 01-21-2025 Albumin/Globulin [Mass ratio] 0.8 {ratio} Low 0.9-2.4 [facility] Serum or plasma alkaline kendrick sphatase measurementOrdered By: Anurag Irene on 01-21-2025 ALP [Catalytic activity/Vol] 204 U/L High 40-129 [facility] Serum or plasma calcium roosevelt urement (mass/volume)Ordered By: Anurag Irene on 01-21-2025 Calcium [Mass/Vol] 8.1 mg/dL 7.6-11.[address] [facility] Serum or plasma urea nitroge n measurement (mass/volume)Ordered By: Anurag Irene on 01-21-2025 Urea nitrogen [Mass/Vol] 13 mg/dL 4-19 [facility] Sodium levelOrdered By: Marni Irene on 01-21-2025 Sodium [Moles/Vol] 133 mmol/L 133-[address] [facility] Total proteinOrdered By: [place] Irene on 01-21-2025 Protein [Mass/Vol] 4.7 g/dL Low 5.9-8.[address] [facility] Absolute lymphocyte countOrd ered By: Anurag Irene on 01-20-2025 Lymphocytes Auto (Unsp spec) [#/Vol] 1.10 10*3/uL 0.83-4.51 [facility] Automated lymphocyte count a s percentage of total leukocytesOrdered By: Anurag Irene on 01-20-2025 Lymphocytes/100 WBC Auto (Unsp spec) 16.3 % Low 19-41 [facility] Basophil percentageOrdered B y: Anurag Irene on 01-20-2025 Basophils/100 WBC (Bld) 0.6 % 0-1 [facility] Bedside Glucoseon 01-20-2025 FINGERSTICK GLU 206 mg/dL High 74-106 [facility] Comment on above: Result Comment: BRISA GEMENT OF PATIENT CARE PER NURSING PROTOCOL Performed By: #### L 501.080 ####[facility] [address] [place], [address] FINGERSTICK GLU 188 mg/dL High [address] [facility] Comment on above: Result Comment: BRISA GEMENT OF PATIENT CARE PER NURSING PROTOCOL Performed By: #### L 501.080 ####[facility] [address] [place], [address] FINGERSTICK GLU 167 mg/dL High 74-106 [facility] Comment on above: Result Comment: BRISA GEMENT OF PATIENT CARE PER NURSING PROTOCOL Performed By: #### L 501.080 ####[facility] [address] [place], [address] FINGERSTICK GLU 164 mg/dL High 74-106 [facility] Comment on above: Result Comment: BRISA GEMENT OF PATIENT CARE PER NURSING PROTOCOL Performed By: #### L 501.080 ####[facility] [address] [place], [address] Blood manual differential co mment interpretation (narrative result)Ordered By: Anurag Irene on 01-20-2025 Manual differential comment Marco Antonio (Bld) [Interp] SCANNED [facility] CBC W/Diff, Automatedon - PLT EST MOD DEC Normal ADEQ [facility] Comment on above: Performed By: #### L 100.0100 ####[facility] [address] [place], [address] SMEAR COMMENT SCANNED Normal [facility] Comment on above: Performed By: #### L 100.0100 ####[facility] [address] [place], [address] Comprehensive Metabolic Prof ilon 01-20-2025 Albumin [Mass/Vol] 2.0 g/dL Low 3.5-5.[address] [facility] Comment on above: Performed By: #### L 500.4050 ####[facility] [address] [place], [address] Albumin/Globulin [Mass ratio] 0.7 {ratio} Low 0.9-2.4 [facility] Comment on above: Performed By: #### L 500.4050 ####[facility] [address] [place], [address] ALK PHOS 211 U/L High 40-129 [facility] Comment on above: Performed By: #### L 500.4050 ####[facility] [address] [place], [address] ALT [Catalytic activity/Vol] 32 U/L Normal <=46 [facility] Comment on above: Performed By: #### L 500.4050 ####[facility] [address] [place], [address] AST [Catalytic activity/Vol] 45 U/L High <=37 [facility] Comment on above: Performed By: #### L 500.4050 ####[facility] [address] [place], [address] Bilirubin [Mass/Vol] 1.61 mg/dL High 0.00-1.30 [facility] Comment on above: Performed By: #### L 500.4050 ####[facility] [address] [place], [address] BUN/CRE 13.4 RATIO Normal 10-20 [facility] Comment on above: Performed By: #### L 500.4050 ####[facility] [address] [place], [address] Calcium [Mass/Vol] 8.1 mg/dL Normal 7.6-11.[address] [facility] Comment on above: Performed By: #### L 500.4050 ####[facility] [address] [place], [address] Chloride [Moles/Vol] 95 mmol/L Low 98-108 [facility] Comment on above: Performed By: #### L 500.4050 ####[facility] [address] [place], [address] CO2 [Moles/Vol] 30.3 mmol/L Normal 21.0-32.0 [facility] Comment on above: Performed By: #### L 500.4050 ####[facility] [address] [place], [address] Creatinine [Mass/Vol] 0.87 mg/dL Normal 0.70-1.20 [facility] Comment on above: Performed By: #### L 500.4050 ####[facility] [address] [place], [address] ECRCL 112.61 ml/min Normal 50-250 [facility] Comment on above: Performed By: #### L 500.4050 ####[facility] [address] [place], [address] GAP 7 Normal 5-15 [facility] Comment on above: Performed By: #### L 500.4050 ####[facility] [address] [place], [address] GFR/1.73 sq M.predicted among non-blacks MDRD (S/P/Bld) [Vol rate/Area] 100 mL/min/{1.73_m2} Normal >60 [facility] Comment on above: Result Comment: mL/m in/1.73m2 CKD-EPI Creatinine Equation (2020) Performed By: #### L 500.4050 ####[facility] [address] [place], [address] Globulin (S) [Mass/Vol] 2.9 g/dL Normal 2.2-4.2 [place] Comment on above: Performed By: #### L 500.4050 ####[facility] [address] [place], [address] Glucose [Mass/Vol] 195 mg/dL High 70-[address] [facility] Comment on above: Performed By: #### L 500.4050 ####[facility] [address] [place], [address] Potassium [Moles/Vol] 3.1 mmol/L Low 3.3-5.1 [facility] Comment on above: Performed By: #### L 500.4050 ####[facility] [address] [place], [address] Sodium [Moles/Vol] 133 mmol/L Normal 133-[address] [facility] Comment on above: Performed By: #### L 500.4050 ####[facility] [address] [place], [address] T PROT 4.9 g/dL Low 5.9-8.4 [facility] Comment on above: Performed By: #### L 500.4050 ####[facility] [address] [place], [address] Urea nitrogen [Mass/Vol] 12 mg/dL Normal 4-19 [facility] Comment on above: Performed By: #### L 500.4050 ####[facility] [address] [place], [address] Eosinophil percentageOrdered By: Anurag Irene on 01-20-2025 Eosinophils/100 WBC (Bld) 6.5 % High 0-5 [facility] Erythrocyte distribution wid th ratioOrdered By: Anurag Irene on 01-20-2025 Erythrocyte distribution width (RBC) [Ratio] 18.3 % High 11.6-14.6 [facility] Erythrocyte distribution wid th standard deviationOrdered By: Anurag Irene on 01-20-2025 Erythrocyte distribution width (RBC) [Ratio] 58.5 fl High 35.1-43.9 [facility] Hematocrit Auto (Bld) [Volum e fraction]Ordered By: Anurag Irene on 01-20-2025 Hematocrit (Bld) [Volume fraction] 22.9 % Low 40-54 [facility] Hemoglobin measurementOrdere d By: Anurag Irene on 01-20-2025 Hemoglobin (Bld) [Mass/Vol] 7.7 g/dL Low 13.0-16.5 [facility] Immature granulocytes/100 WB C Auto (Bld)Ordered By: Anurag Irene on 01-20-2025 Immature granulocytes/100 WBC (Bld) 1.200 % High 0.0-0.9 [facility] MCV (mean corpuscular volume ) determinationOrdered By: Anurag Irene on 01-20-2025 MCV (RBC) [Entitic vol] 88.1 fL 80-94 [facility] Mean corpuscular hemoglobin (MCH) determinationOrdered By: Anurag Irene on 01-20-2025 MCH (RBC) [Entitic mass] 29.6 pg 27.0-32.0 [facility] Monocyte percentageOrdered B y: Anurag Irene on 01-20-2025 Monocytes/100 WBC (Bld) 11.9 % High 0-10 [facility] Neutrophil percentageOrdered By: Anurag Irene on 01-20-2025 Neutrophils/100 WBC (Bld) 63.5 % 47-70 [facility] Platelet countOrdered By: Francois Irene on 01-20-2025 Platelets (Bld) [#/Vol] 93 10*3/uL Low 150-450 [facility] Platelet estimateOrdered By: Anurag Irene on 01-20-2025 Platelets LM Ql (Bld) MOD DEC [facility]Q [facility] RBC Auto (Bld) [#/Vol]Ordere d By: Anurag Irene on 01-20-2025 RBC (Bld) [#/Vol] 2.60 10*6/uL Low 4.6-6.2 [facility] White blood cell (WBC) count Ordered By: Anurag Irene on 01-20-2025 WBC (Bld) [#/Vol] 6.8 10*3/uL 4.4-11.[address] [facility] Activated partial thrombopla stin time (aPTT) in platelet poor plasma by coagulation aOrdered By: Rosendo Renee on 01-19-2025 aPTT Coag (PPP) [Time] 46.6 s High 24.1-36.2 [facility] Albumin, Serumon 01-19-2025 Albumin [Mass/Vol] 2.2 g/dL Low 3.5-5.[address] [facility] Comment on above: Performed By: #### L 300.3900, L501.1800, L501.2300, L300.4310, L501.5200 ####[facility] [address] [place], [address] Bedside Glucoseon 01-19-2025 FINGERSTICK GLU 225 mg/dL High 74-106 [facility] Comment on above: Result Comment: BRISA GEMENT OF PATIENT CARE PER NURSING PROTOCOL Performed By: #### L 501.080 ####[facility] [address] [place], [address] FINGERSTICK GLU 268 mg/dL High [facility]106 [facility] Comment on above: Result Comment: BRISA GEMENT OF PATIENT CARE PER NURSING PROTOCOL Performed By: #### L 501.080 ####[facility] [address] [place], [address] FINGERSTICK GLU 187 mg/dL High 74-106 [facility] Comment on above: Result Comment: BRISA GEMENT OF PATIENT CARE PER NURSING PROTOCOL Performed By: #### L 501.080 ####[facility] [address] [place], [address] FINGERSTICK GLU 198 mg/dL High 74-106 [facility] Comment on above: Result Comment: BRISA GEMENT OF PATIENT CARE PER NURSING PROTOCOL Performed By: #### L 501.080 ####[facility] [address] [place], [address] Bilirubin directOrdered By: Anurag Irene on 01-19-2025 Bilirubin.direct [Mass/Vol] 1.00 mg/dL High 0.00-0.30 [facility] Bilirubin, Directon 01-20-20 Bilirubin.direct [Mass/Vol] 1.00 mg/dL High 0.00-0.30 [facility] Comment on above: Performed By: #### L 501.4700, L100.0100, L500.4050 ####[facility] [address] [place], [address] Body Fluid Culton 01-19-2025 BFC Culture exhibits no growth. Normal [facility] Comment on above: Performed By: #### L 200.0200, L350.1000, M100.2900, M100.4001, M100.2000 ####[facility] [address] [place], [address] CBC W/Diff, Automatedon 01-02 Absolute Lymph 1.08 X10 3/uL Normal 0.83-4.51 [facility] Comment on above: Performed By: #### L 501.4700, L100.0100, L500.4050 ####[facility] [address] [place], [address] Absolute Neut 5.4 X10 3/uL Normal 2.0-7.7 [facility] Comment on above: Performed By: #### L 501.4700, L100.0100, L500.4050 ####[facility] [address] [place], [address] Basophils/100 WBC (Bld) 0.5 % Normal 0-1 [facility] Comment on above: Performed By: #### L 501.4700, L100.0100, L500.4050 ####[facility] [address] [place], [address] Eosinophils/100 WBC (Bld) 5.8 % High 0-5 [facility] Comment on above: Performed By: #### L 501.4700, L100.0100, L500.4050 ####[facility] [address] [place], [address] Erythrocyte distribution width (RBC) [Ratio] 18.6 % High 11.6-14.6 [facility] Comment on above: Performed By: #### L 501.4700, L100.0100, L500.4050 ####[facility] [address] [place], [address] Hematocrit (Bld) [Volume fraction] 22.3 % Low 40-54 [facility] Comment on above: Performed By: #### L 501.4700, L100.0100, L500.4050 ####[facility] [address] [place], [address] Hemoglobin (Bld) [Mass/Vol] 7.6 g/dL Low 13.0-16.5 [facility] Comment on above: Performed By: #### L 501.4700, L100.0100, L500.4050 ####[facility] [address] [place], [address] IG% 1.400 High 0.0-0.9 [facility] Comment on above: Result Comment: IG% - Immature Granulocytes (promyelocytes, myelocytes andmetamyelocytes) > 1% indicates that a LEFT SHIFT is Present. Performed By: #### L 501.4700, L100.0100, L500.4050 ####[facility] [address] [place], [address] Lymphocytes/100 WBC (Bld) 13.6 % Low 19-41 [facility] Comment on above: Performed By: #### L 501.4700, L100.0100, L500.4050 ####[facility] [address] [place], [address] MCH (RBC) [Entitic mass] 30.3 pg Normal 27.0-32.0 [facility] Comment on above: Performed By: #### L 501.4700, L100.0100, L500.4050 ####[facility] [address] [place], [address] MCHC (RBC) [Mass/Vol] 34.1 g/dL Normal 32-36 [facility] Comment on above: Performed By: #### L 501.4700, L100.0100, L500.4050 ####[facility] [address] [place], [address] MCV (RBC) [Entitic vol] 88.8 fL Normal 80-94 [place] Comment on above: Performed By: #### L 501.4700, L100.0100, L500.4050 ####[facility] [address] [place], [address] Monocytes/100 WBC (Bld) 11.0 % High 0-10 [place] Comment on above: Performed By: #### L 501.4700, L100.0100, L500.4050 ####[facility] [address] [place], [address] Neutrophils/100 WBC (Bld) 67.7 % Normal 47-70 [facility] Comment on above: Performed By: #### L 501.4700, L100.0100, L500.4050 ####[facility] [address] [place], [address] Nucleated RBC (Bld) [#/Vol] 0 10*3/uL Normal 0-5 [facility] Comment on above: Performed By: #### L 501.4700, L100.0100, L500.4050 ####[facility] [address] [place], [address] Platelet mean volume (Bld) [Entitic vol] 11.1 fL Normal 6.2-12.0 [facility] Comment on above: Performed By: #### L 501.4700, L100.0100, L500.4050 ####[facility] [address] [place], [address] Platelets (Bld) [#/Vol] 107 10*3/uL Low 150-450 [facility] Comment on above: Performed By: #### L 501.4700, L100.0100, L500.4050 ####[facility] [address] [place], [address] RBC (Bld) [#/Vol] 2.51 10*6/uL Low 4.6-6.2 [facility] Comment on above: Performed By: #### L 501.4700, L100.0100, L500.4050 ####[facility] [address] [place], [address] RDW SD 59.0 fl High 35.1-43.9 [facility] Comment on above: Performed By: #### L 501.4700, L100.0100, L500.4050 ####[facility] [address] [place], [address] WBC (Bld) [#/Vol] 7.9 10*3/uL Normal 4.4-11.[address] [facility] Comment on above: Performed By: #### L 501.4700, L100.0100, L500.4050 ####[facility] [address] [place], [address] Comprehensive Metabolic Prof ilon 01-19-2025 Albumin [Mass/Vol] 2.2 g/dL Low 3.5-5.[address] [facility] Comment on above: Performed By: #### L 501.4700, L100.0100, L500.4050 ####[facility] [facility] [address] [place], [address] Albumin/Globulin [Mass ratio] 0.9 {ratio} Normal 0.9-2.4 [facility] Comment on above: Performed By: #### L 501.4700, L100.0100, L500.4050 ####[facility] [address] [place], [address] ALK PHOS 225 U/L High 40-129 [facility] Comment on above: Performed By: #### L 501.4700, L100.0100, L500.4050 ####[facility] [address] [place], [address] ALT [Catalytic activity/Vol] 34 U/L Normal <=46 [facility] Comment on above: Performed By: #### L 501.4700, L100.0100, L500.4050 ####[facility] [address] [place], [address] AST [Catalytic activity/Vol] 52 U/L High <=37 [facility] Comment on above: Performed By: #### L 501.4700, L100.0100, L500.4050 ####[facility] [address] [place], [address] Bilirubin [Mass/Vol] 1.70 mg/dL High 0.00-1.30 [facility] Comment on above: Performed By: #### L 501.4700, L100.0100, L500.4050 ####[facility] [address] [place], [address] BUN/CRE 10.4 RATIO Normal 10-20 [facility] Comment on above: Performed By: #### L 501.4700, L100.0100, L500.4050 ####[facility] [address] [place], [address] Calcium [Mass/Vol] 7.9 mg/dL Normal 7.6-11.[address] [facility] Comment on above: Performed By: #### L 501.4700, L100.0100, L500.4050 ####[facility] [address] [place], [address] Chloride [Moles/Vol] 94 mmol/L Low 98-108 [facility] Comment on above: Performed By: #### L 501.4700, L100.0100, L500.4050 ####[facility] [address] [place], [address] CO2 [Moles/Vol] 30.7 mmol/L Normal 21.0-32.0 [facility] Comment on above: Performed By: #### L 501.4700, L100.0100, L500.4050 ####[facility] [address] [place], [address] Creatinine [Mass/Vol] 1.05 mg/dL Normal 0.70-1.20 [facility] Comment on above: Performed By: #### L 501.4700, L100.0100, L500.4050 ####[facility] [address] [place], [address] ECRCL 93.35 ml/min Normal 50-250 [facility] Comment on above: Performed By: #### L 501.4700, L100.0100, L500.4050 ####[facility] [address] [place], [address] GAP 7 Normal 5-15 [facility] Comment on above: Performed By: #### L 501.4700, L100.0100, L500.4050 ####[facility] [address] [place], [address] GFR/1.73 sq M.predicted among non-blacks MDRD (S/P/Bld) [Vol rate/Area] 82 mL/min/{1.73_m2} Normal >60 [facility] Comment on above: Result Comment: mL/m in/1.73m2 CKD-EPI Creatinine Equation (2020) Performed By: #### L 501.4700, L100.0100, L500.4050 ####[facility] [address] [place], [address] Globulin (S) [Mass/Vol] 2.6 g/dL Normal 2.2-4.2 [place] Comment on above: Performed By: #### L 501.4700, L100.0100, L500.4050 ####[facility] [address] [place], [address] Glucose [Mass/Vol] 220 mg/dL High 70-[address] [facility] Comment on above: Performed By: #### L 501.4700, L100.0100, L500.4050 ####[facility] [address] [place], [address] Potassium [Moles/Vol] 3.0 mmol/L Low 3.3-5.1 [facility] Comment on above: Performed By: #### L 501.4700, L100.0100, L500.4050 ####[facility] [address] [place], [address] Sodium [Moles/Vol] 132 mmol/L Low 133-[address] [facility] Comment on above: Performed By: #### L 501.4700, L100.0100, L500.4050 ####[facility] [address] [place], [address] T PROT 4.8 g/dL Low 5.9-8.4 [facility] Comment on above: Performed By: #### L 501.4700, L100.0100, L500.4050 ####[facility] [address] [place], [address] Urea nitrogen [Mass/Vol] 11 mg/dL Normal 4-19 [facility] Comment on above: Performed By: #### L 501.4700, L100.0100, L500.4050 ####[facility] [address] [place], [address] Gram Stainon 01-19-2025 GS Centrifuged Specimen ? Culture performed on centrifuged specimen Gram Stain No organisms seen No cells seen Normal [facility] Comment on above: Performed By: #### L 200.0200, L350.1000, M100.2900, M100.4001, M100.2000 ####[facility] [address] [place], [address] Liver Profileon 01-19-2025 ALB Normal 3.5-5.0 [facility] Comment on above: Result Comment: MOVE D TO DIFFERENT REQ- SEE C50 Performed By: #### L 500.3400 ####[facility] [address] [place], [address] ALK PHOS Normal 40-129 [facility] Comment on above: Result Comment: MOVE D TO DIFFERENT REQ- SEE C50 Performed By: #### L 500.3400 ####[facility] [address] [place], [address] ALT Normal <=46 [facility] Comment on above: Result Comment: MOVE D TO DIFFERENT REQ- SEE C50 Performed By: #### L 500.3400 ####[facility] [address] [place], [address] AST Normal <=37 [facility] Comment on above: Result Comment: MOVE D TO DIFFERENT REQ- SEE C50 Performed By: #### L 500.3400 ####[facility] [address] [place], [address] D BILI Normal 0.00-0.30 [facility] Comment on above: Result Comment: MOVE D TO DIFFERENT REQ- SEE C50 Performed By: #### L 500.3400 ####[facility] [address] [place], [address] T BILI Normal 0.00-1.30 [facility] Comment on above: Result Comment: MOVE D TO DIFFERENT REQ- SEE C50 Performed By: #### L 500.3400 ####[facility] [address] [place], [address] T PROT Normal 5.9-8.4 [facility] Comment on above: Result Comment: MOVE D TO DIFFERENT REQ- SEE C50 Performed By: #### L 500.3400 ####[facility] [address] [place], [address] Magnesiumon 01-19-2025 Magnesium [Mass/Vol] 1.7 mg/dL Normal 1.5-2.2 [facility] Comment on above: Performed By: #### L 300.3900, L501.1800, L501.2300, L300.4310, L501.5200 ####[facility] [address] [place], [address] Magnesium measurement (mass/ volume)Ordered By: Rosendo Renee on 01-19-2025 Magnesium (Unsp spec) [Mass/Vol] 1.7 mg/dL 1.5-2.2 [facility] Partial Thromboplast Timeon 01-19-2025 aPTT Coag (Bld) [Time] 46.6 s High 24.1-36.2 [facility] Comment on above: Performed By: #### L 300.3900, L501.1800, L501.2300, L300.4310, L501.5200 ####[facility] [address] [place], [address] Phosphoruson 01-19-2025 Phosphate [Mass/Vol] 3.5 mg/dL Normal 2.7-4.5 [facility] Comment on above: Performed By: #### L 300.3900, L501.1800, L501.2300, L300.4310, L501.5200 ####[facility] [address] [place], [address] Prothrombin Time w/INRon INR Coag (PPP) [Relative time] 2.0 {INR} Normal [facility] Comment on above: Performed By: #### L 300.3900, L501.1800, L501.2300, L300.4310, L501.5200 ####[facility] [address] [place], [address] PT Coag (PPP) [Time] 22.8 s High 11.7-14.9 [facility] Comment on above: Performed By: #### L 300.3900, L501.1800, L501.2300, L300.4310, L501.5200 ####[facility] [address] [place], [address] Prothrombin timeOrdered By: Rosendo Renee on 01-19-2025 PT Coag (PPP) [Time] 22.8 s High 11.7-14.9 [facility] Abdomen Limitedon 01-18-2025 Abdomen Limited Normal [facility] Anaerobic cultureOrdered By: Anurag Irene on 01-18-2025 Bacteria identified Anaer cx Nom (Unsp spec) No growth in 5 days. [facility] Basic Metabolic Profile (BMP )on 01-18-2025 BUN/CRE 9.8 RATIO Low 10-20 [facility] Comment on above: Performed By: #### L 500.2500 ####[facility] [address] [place], [address] Calcium [Mass/Vol] 7.7 mg/dL Normal 7.6-11.[address] [facility] Comment on above: Performed By: #### L 500.2500 ####[facility] [address] [place], [address] Chloride [Moles/Vol] 92 mmol/L Low 98-108 [facility] Comment on above: Performed By: #### L 500.2500 ####[facility] [address] [place], [address] CO2 [Moles/Vol] 31.5 mmol/L Normal 21.0-32.0 [facility] Comment on above: Performed By: #### L 500.2500 ####[facility] [address] [place], [address] Creatinine [Mass/Vol] 0.85 mg/dL Normal 0.70-1.20 [facility] Comment on above: Performed By: #### L 500.2500 ####[facility] [address] [place], [address] ECRCL 116.49 ml/min Normal 50-250 [facility] Comment on above: Performed By: #### L 500.2500 ####[facility] [address] [place], [address] GAP 8 Normal 5-15 [facility] Comment on above: Performed By: #### L 500.2500 ####[facility] [address] [place], [address] GFR/1.73 sq M.predicted among non-blacks MDRD (S/P/Bld) [Vol rate/Area] 101 mL/min/{1.73_m2} Normal >60 [facility] Comment on above: Result Comment: mL/m in/1.73m2 CKD-EPI Creatinine Equation (2020) Performed By: #### L 500.2500 ####[facility] [address] [place], [address] Glucose [Mass/Vol] 228 mg/dL High 70-[address] [facility] Comment on above: Performed By: #### L 500.2500 ####[facility] [address] [place], [address] Potassium [Moles/Vol] 2.8 mmol/L Low 3.3-5.1 [facility] Comment on above: Performed By: #### L 500.2500 ####[facility] [address] [place], [address] Sodium [Moles/Vol] 132 mmol/L Low 133-[address] [facility] Comment on above: Performed By: #### L 500.2500 ####[facility] [address] [place], [address] Urea nitrogen [Mass/Vol] 8 mg/dL Normal 4-19 [facility] Comment on above: Performed By: #### L 500.2500 ####[facility] [address] [place], [address] Bedside Glucoseon 01-18-2025 FINGERSTICK GLU 250 mg/dL High 74-106 [facility] Comment on above: Result Comment: BRISA GEMENT OF PATIENT CARE PER NURSING PROTOCOL Performed By: #### L 501.080 ####[facility] [address] [place], [address] FINGERSTICK GLU 158 mg/dL High 74-106 [facility] Comment on above: Result Comment: BRISA GEMENT OF PATIENT CARE PER NURSING PROTOCOL Performed By: #### L 501.080 ####[facility] [address] [place], [address] FINGERSTICK GLU 142 mg/dL High 74-106 [facility] Comment on above: Result Comment: BRISA GEMENT OF PATIENT CARE PER NURSING PROTOCOL Performed By: #### L 501.080 ####[facility] [address] [place], [address] FINGERSTICK GLU 171 mg/dL High -106 [facility] Comment on above: Result Comment: BRISA GEMENT OF PATIENT CARE PER NURSING PROTOCOL Performed By: #### L 501.080 ####[facility] [address] [place], [address] Body fluid appearance (nomin al result)Ordered By: Anurag Irene on 01-18-2025 Appearance (Body fld) CLEAR [facility] Body fluid color determinati onOrdered By: Anurag Irene on 01-18-2025 Color (Body fld) LT YEL [facility] Body fluid cultureOrdered By : Anurag Irene on 01-18-2025 Microbial culture, body fluid Culture exhibits no growth. [facility] Body fluid leukocytes count (number/volume)Ordered By: Anurag Irene on 01-18-2025 WBC (Body fld) [#/Vol] 0.143 10*3/uL [facility] Body fluid lymphocytes/100 l eukocytesOrdered By: Anurag Irene on 01-18-2025 Lymphocytes/100 WBC (Body fld) 24 % [facility] Body fluid macrophage countO rdered By: Anurag Irene on 01-18-2025 Macrophages (Body fld) [#/Vol] 46 % [facility] Body fluid mesothelial cell percentageOrdered By: Anurag Irene on 01-18-2025 Mesothelial cells/100 WBC (Body fld) 7 % [facility] Body fluid mononuclear cell percentageOrdered By: Anurag Irene on 01-18-2025 Mononuclear cells/100 WBC (Body fld) 75.6 % [facility] Body fluid other cell count as percentage of leukocytesOrdered By: Anurag Irene on 01-18-2025 Other cells/100 WBC (Body fld) 7 % [facility] Other cells/100 WBC (Body fld) [employer] [facility] Body fluid protein measureme nt (mass/volume)Ordered By: Anurag Irene on 01-18-2025 Protein (Body fld) [Mass/Vol] 0.3 g/dL Not Establ. [facility] Body fluid segmented neutrop hils count (number/volume)Ordered By: Anurag Irene on 01-18-2025 Segmented neutrophils (Body fld) [#/Vol] 20 % [facility] Body fluid total cell countO rdered By: Anurag Irene on 01-18-2025 Cells Counted Total (Body fld) [#] 0.172 10^3/ul [facility] CBC W/Diff, Automatedon 06-1 -2024 Absolute Lymph 1.13 X10 3/uL Normal 0.83-4.51 [facility] Comment on above: Performed By: #### L 100.0100 ####[facility] [address] [place], [address] Absolute Neut 5.5 X10 3/uL Normal 2.0-7.7 [facility] Comment on above: Performed By: #### L 100.0100 ####[facility] [address] [place], [address] Basophils/100 WBC (Bld) 0.6 % Normal 0-1 [facility] Comment on above: Performed By: #### L 100.0100 ####[facility] [address] [place], [address] Eosinophils/100 WBC (Bld) 6.1 % High 0-5 [facility] Comment on above: Performed By: #### L 100.0100 ####[facility] [address] [place], [address] Erythrocyte distribution width (RBC) [Ratio] 18.7 % High 11.6-14.6 [facility] Comment on above: Performed By: #### L 100.0100 ####[facility] [address] [place], [address] Hematocrit (Bld) [Volume fraction] 22.6 % Low 40-54 [facility] Comment on above: Performed By: #### L 100.0100 ####[facility] [address] [place], [address] Hemoglobin (Bld) [Mass/Vol] 7.7 g/dL Low 13.0-16.5 [facility] Comment on above: Performed By: #### L 100.0100 ####[facility] [address] [place], [address] IG% 1.200 High 0.0-0.9 [facility] Comment on above: Result Comment: IG% - Immature Granulocytes (promyelocytes, myelocytes andmetamyelocytes) > 1% indicates that a LEFT SHIFT is Present. Performed By: #### L 100.0100 ####[facility] [address] [place], [address] Lymphocytes/100 WBC (Bld) 14.0 % Low 19-41 [facility] Comment on above: Performed By: #### L 100.0100 ####[facility] [address] [place], [address] MCH (RBC) [Entitic mass] 30.1 pg Normal 27.0-32.0 [facility] Comment on above: Performed By: #### L 100.0100 ####[facility] [address] [place], [address] MCHC (RBC) [Mass/Vol] 34.1 g/dL Normal 32-36 [facility] Comment on above: Performed By: #### L 100.0100 ####[facility] [address] [place], [address] MCV (RBC) [Entitic vol] 88.3 fL Normal 80-94 [facility] Comment on above: Performed By: #### L 100.0100 ####[facility] [address] [place], [address] Monocytes/100 WBC (Bld) 10.0 % Normal 0-10 [facility] Comment on above: Performed By: #### L 100.0100 ####[facility] [address] [place], [address] Neutrophils/100 WBC (Bld) 68.1 % Normal 47-70 [facility] Comment on above: Performed By: #### L 100.0100 ####[facility] [address] [place], [address] Nucleated RBC (Bld) [#/Vol] 0 10*3/uL Normal 0-5 [facility] Comment on above: Performed By: #### L 100.0100 ####[facility] [address] [place], [address] Platelet mean volume (Bld) [Entitic vol] 10.5 fL Normal 6.2-12.0 [facility] Comment on above: Performed By: #### L 100.0100 ####[facility] [address] [place], [address] Platelets (Bld) [#/Vol] 107 10*3/uL Low 150-450 [facility] Comment on above: Performed By: #### L 100.0100 ####[facility] [address] [place], [address] RBC (Bld) [#/Vol] 2.56 10*6/uL Low 4.6-6.2 [facility] Comment on above: Performed By: #### L 100.0100 ####[facility] [address] [place], [address] RDW SD 58.9 fl High 35.1-43.9 [facility] Comment on above: Performed By: #### L 100.0100 ####[facility] [address] [place], [address] WBC (Bld) [#/Vol] 8.1 10*3/uL Normal 4.4-11.[address] [facility] Comment on above: Performed By: #### L 100.0100 ####[facility] [address] [place], [address] Cytology report of Body flui d Cyto stainOrdered By: Anurag Irene on 01-18-2025 Cytology report Cyto stain Doc (Body fld) SEE PATHOLOGY REPORT [facility] Cytology, Body Fluid / CSFon 01-18-2025 CYTOLOGY,BF/CSF SEE PATHOLOGY REPORT Normal [facility] Comment on above: Result Comment: Spec imen submitted to Anatomical Pathology Department fortesting. Performed By: #### L 200.0200, L350.1000, M100.2900, M100.4001, M100.2000 ####[facility] [address] [place], [address] Glucose, Body Fluidon 2024 GLUC, BODY FLD 154 mg/dL Normal Not Establ. [facility] Comment on above: Performed By: #### L 503.0100, L503.0300 ####[facility] [address] [place], [address] Gram stainOrdered By: Anuradha Irene on 01-18-2025 Microscopic observation Gram stain Nom (Unsp spec) [facility] Magnesiumon 01-18-2025 Magnesium [Mass/Vol] 1.6 mg/dL Normal 1.5-2.2 [facility] Comment on above: Performed By: #### L 501.2300, L501.5200 ####[facility] [address] [place], [address] Monocyte detectionOrdered By : Anurag Irene on 01-18-2025 Monocytes/100 WBC (Bld) 3 % [facility] No Panel InformationOrdered By: Anurag Irene on 01-18-2025 218 /mm3 [facility] SEE COMMENT [facility] Paracentesis with USon 01-18 Paracentesis with US Normal [facility] Pathologist interpretation o f Body fluid testsOrdered By: Anurag Irene on 01-18-2025 Pathologist interpretation (Body fld) [Interp] Reviewed [facility] Phosphoruson 01-18-2025 Phosphate [Mass/Vol] 3.7 mg/dL Normal 2.7-4.5 [facility] Comment on above: Performed By: #### L 501.2300, L501.5200 ####[facility] [address] [place], [address] Protein, Body Fluidon 2024 Protein [Mass/Vol] 0.3 g/dL Normal Not Establ. [facility] Comment on above: Performed By: #### L 503.0100, L503.0300 ####[facility] [address] [place], [address] Prothrombin Time w/INRon INR Coag (PPP) [Relative time] 2.0 {INR} Normal [facility] Comment on above: Performed By: #### L 300.3900 ####[facility] [address] [place], [address] PT Coag (PPP) [Time] 22.9 s High 11.7-14.9 [facility] [facility] [place] Comment on above: Performed By: #### L 300.3900 ####[facility] [address] [place], [address] Special Stain Group IIon Special Stain Group II Normal [facility] Comment on above: Performed By: #### P SSII ####[facility] [address] [place], [address] Specimen source identificati on of body fluidOrdered By: Anurag Irene on 01-18-2025 Specimen source Nom (Body fld) PERITONEAL FLUID [facility] Stool Occult Blood iFOBon STOB Negative Normal [facility] Comment on above: Performed By: #### M 100.7900 ####[facility] [address] [place], [address] Stool gastrointestinal hemog lobin detection by immunologic methodOrdered By: Cielo Tovar on 01-18-2025 Lower GI hemoglobin IA Ql (Stl) [facility] Bedside Glucoseon 01-17-2025 FINGERSTICK GLU 180 mg/dL High 74-106 [facility] Comment on above: Result Comment: BRISA GEMENT OF PATIENT CARE PER NURSING PROTOCOL Performed By: #### L 501.080 ####[facility] [address] [place], [address] FINGERSTICK GLU 236 mg/dL High 74-106 [facility] Comment on above: Result Comment: BRISA GEMENT OF PATIENT CARE PER NURSING PROTOCOL Performed By: #### L 501.080 ####[facility] [address] [place], [address] FINGERSTICK GLU 141 mg/dL High 74-106 [facility] Comment on above: Result Comment: BRISA GEMENT OF PATIENT CARE PER NURSING PROTOCOL Performed By: #### L 501.080 ####[facility] [address] [place], [address] FINGERSTICK GLU 173 mg/dL High 74-106 [facility] Comment on above: Result Comment: BRISA GEMENT OF PATIENT CARE PER NURSING PROTOCOL Performed By: #### L 501.080 ####[facility] [address] [place], [address] CBC W/Diff, Automatedon 06-08 09-2024 Absolute Lymph 1.09 X10 3/uL Normal 0.83-4.51 [facility] Comment on above: Performed By: #### L 100.0100 ####[facility] [address] [place], [address] Absolute Neut 5.7 X10 3/uL Normal 2.0-7.7 [facility] Comment on above: Performed By: #### L 100.0100 ####[facility] [address] [place], [address] Basophils/100 WBC (Bld) 0.5 % Normal 0-1 [facility] Comment on above: Performed By: #### L 100.0100 ####[facility] [address] [place], [address] Eosinophils/100 WBC (Bld) 6.8 % High 0-5 [facility] Comment on above: Performed By: #### L 100.0100 ####[facility] [address] [place], [address] Erythrocyte distribution width (RBC) [Ratio] 18.8 % High 11.6-14.6 [facility] Comment on above: Performed By: #### L 100.0100 ####[facility] [address] [place], [address] Hematocrit (Bld) [Volume fraction] 22.2 % Low 40-54 [facility] Comment on above: Performed By: #### L 100.0100 ####[facility] [address] [place], [address] Hemoglobin (Bld) [Mass/Vol] 7.5 g/dL Low 13.0-16.5 [facility] Comment on above: Performed By: #### L 100.0100 ####[facility] [address] [place], [address] IG% 1.100 High 0.0-0.9 [facility] Comment on above: Result Comment: IG% - Immature Granulocytes (promyelocytes, myelocytes andmetamyelocytes) > 1% indicates that a LEFT SHIFT is Present. Performed By: #### L 100.0100 ####[facility] [address] [place], [address] Lymphocytes/100 WBC (Bld) 12.9 % Low 19-41 [facility] Comment on above: Performed By: #### L 100.0100 ####[facility] [address] [place], [address] MCH (RBC) [Entitic mass] 30.0 pg Normal 27.0-32.0 [facility] Comment on above: Performed By: #### L 100.0100 ####[facility] [address] [place], [address] MCHC (RBC) [Mass/Vol] 33.8 g/dL Normal 32-36 [facility] Comment on above: Performed By: #### L 100.0100 ####[facility] [address] [place], [address] MCV (RBC) [Entitic vol] 88.8 fL Normal 80-94 [place] Comment on above: Performed By: #### L 100.0100 ####[facility] [address] [place], [address] Monocytes/100 WBC (Bld) 11.5 % High 0-10 [place] Comment on above: Performed By: #### L 100.0100 ####[facility] [address] [place], [address] Neutrophils/100 WBC (Bld) 67.2 % Normal 47-70 [facility] Comment on above: Performed By: #### L 100.0100 ####[facility] [address] [place], [address] Nucleated RBC (Bld) [#/Vol] 0 10*3/uL Normal 0-5 [facility] Comment on above: Performed By: #### L 100.0100 ####[facility] [address] [place], [address] Platelet mean volume (Bld) [Entitic vol] 10.7 fL Normal 6.2-12.0 [facility] Comment on above: Performed By: #### L 100.0100 ####[facility] [address] [place], [address] Platelets (Bld) [#/Vol] 109 10*3/uL Low 150-450 [facility] Comment on above: Performed By: #### L 100.0100 ####[facility] [address] [place], [address] RBC (Bld) [#/Vol] 2.50 10*6/uL Low 4.6-6.2 [facility] Comment on above: Performed By: #### L 100.0100 ####[facility] [address] [place], [address] RDW SD 58.8 fl High 35.1-43.9 [facility] Comment on above: Performed By: #### L 100.0100 ####[facility] [address] [place], [address] WBC (Bld) [#/Vol] 8.4 10*3/uL Normal 4.4-11.[address] [facility] Comment on above: Performed By: #### L 100.0100 ####[facility] [address] [place], [address] Bedside Glucoseon 01-16-2025 FINGERSTICK GLU 227 mg/dL High 74-106 [facility] Comment on above: Result Comment: BRISA GEMENT OF PATIENT CARE PER NURSING PROTOCOL Performed By: #### L 501.080 ####[facility] [address] [place], [address] FINGERSTICK GLU 202 mg/dL High 74-106 [facility] Comment on above: Result Comment: BRISA GEMENT OF PATIENT CARE PER NURSING PROTOCOL Performed By: #### L 501.080 ####[facility] [address] [place], [address] FINGERSTICK GLU 177 mg/dL High 74-106 [facility] Comment on above: Result Comment: BRISA GEMENT OF PATIENT CARE PER NURSING PROTOCOL Performed By: #### L 501.080 ####[facility] [address] [place], [address] FINGERSTICK GLU 173 mg/dL High 74-106 [facility] Comment on above: Result Comment: BRISA GEMENT OF PATIENT CARE PER NURSING PROTOCOL Performed By: #### L 501.080 ####[facility] [address] [place], [address] CBC W/Diff, Automatedon 06-08 08-2024 Absolute Lymph 1.16 X10 3/uL Normal 0.83-4.51 [facility] Comment on above: Performed By: #### L 100.0100 ####[facility] [address] [place], [address] Absolute Neut 5.2 X10 3/uL Normal 2.0-7.7 [facility] Comment on above: Performed By: #### L 100.0100 ####[facility] [address] [place], [address] Basophils/100 WBC (Bld) 0.4 % Normal 0-1 [facility] Comment on above: Performed By: #### L 100.0100 ####[facility] [address] [place], [address] Eosinophils/100 WBC (Bld) 6.5 % High 0-5 [facility] Comment on above: Performed By: #### L 100.0100 ####[facility] [address] [place], [address] Erythrocyte distribution width (RBC) [Ratio] 18.5 % High 11.6-14.6 [facility] Comment on above: Performed By: #### L 100.0100 ####[facility] [address] [place], [address] Hematocrit (Bld) [Volume fraction] 22.8 % Low 40-54 [facility] Comment on above: Performed By: #### L 100.0100 ####[facility] [address] [place], [address] Hemoglobin (Bld) [Mass/Vol] 7.8 g/dL Low 13.0-16.5 [facility] Comment on above: Performed By: #### L 100.0100 ####[facility] [address] [place], [address] IG% 0.900 Normal 0.0-0.9 [facility] Comment on above: Result Comment: IG% - Immature Granulocytes (promyelocytes, myelocytes andmetamyelocytes) > 1% indicates that a LEFT SHIFT is Present. Performed By: #### L 100.0100 ####[facility] [address] [place], [address] Lymphocytes/100 WBC (Bld) 14.6 % Low 19-41 [facility] Comment on above: Performed By: #### L 100.0100 ####[facility] [address] [place], [address] MCH (RBC) [Entitic mass] 30.2 pg Normal 27.0-32.0 [facility] Comment on above: Performed By: #### L 100.0100 ####[facility] [address] [place], [address] MCHC (RBC) [Mass/Vol] 34.2 g/dL Normal 32-36 [facility] Comment on above: Performed By: #### L 100.0100 ####[facility] [address] [place], [address] MCV (RBC) [Entitic vol] 88.4 fL Normal 80-94 [place] Comment on above: Performed By: #### L 100.0100 ####[facility] [address] [place], [address] Monocytes/100 WBC (Bld) 12.7 % High 0-10 [facility] Comment on above: Performed By: #### L 100.0100 ####[facility] [address] [place], [address] Neutrophils/100 WBC (Bld) 64.9 % Normal 47-70 [facility] Comment on above: Performed By: #### L 100.0100 ####[facility] [address] [place], [address] Nucleated RBC (Bld) [#/Vol] 0 10*3/uL Normal 0-5 [facility] Comment on above: Performed By: #### L 100.0100 ####[facility] [address] [place], [address] Platelet mean volume (Bld) [Entitic vol] 10.8 fL Normal 6.2-12.0 [facility] Comment on above: Performed By: #### L 100.0100 ####[facility] [address] [place], [address] Platelets (Bld) [#/Vol] 111 10*3/uL Low 150-450 [facility] Comment on above: Performed By: #### L 100.0100 ####[facility] [address] [place], [address] RBC (Bld) [#/Vol] 2.58 10*6/uL Low 4.6-6.2 [facility] Comment on above: Performed By: #### L 100.0100 ####[facility] [address] [place], [address] RDW SD 57.9 fl High 35.1-43.9 [facility] Comment on above: Performed By: #### L 100.0100 ####[facility] [address] [place], [address] WBC (Bld) [#/Vol] 7.9 10*3/uL Normal 4.4-11.[address] [facility] Comment on above: Performed By: #### L 100.0100 ####[facility] [address] [place], [address] Comprehensive Metabolic Prof il 01-16-2025 Albumin [Mass/Vol] 2.2 g/dL Low 3.5-5.[address] [facility] Comment on above: Performed By: #### L 500.4050 ####[facility] [address] [place], [address] Albumin/Globulin [Mass ratio] 0.9 {ratio} Normal 0.9-2.4 [facility] Comment on above: Performed By: #### L 500.4050 ####[facility] [address] [place], [address] ALK PHOS 247 U/L High 40-129 [facility] Comment on above: Performed By: #### L 500.4050 ####[facility] [address] [place], [address] ALT [Catalytic activity/Vol] 49 U/L High <=46 [facility] Comment on above: Performed By: #### L 500.4050 ####[facility] [address] [place], [address] AST [Catalytic activity/Vol] 51 U/L High <=37 [facility] Comment on above: Performed By: #### L 500.4050 ####[facility] [address] [place], [address] Bilirubin [Mass/Vol] 1.89 mg/dL High 0.00-1.30 [facility] Comment on above: Performed By: #### L 500.4050 ####[facility] [address] [place], [address] BUN/CRE 7.1 RATIO Low 10-20 [facility] Comment on above: Performed By: #### L 500.4050 ####[facility] [address] [place], [address] Calcium [Mass/Vol] 7.8 mg/dL Normal 7.6-11.[address] [facility] Comment on above: Performed By: #### L 500.4050 ####[facility] [address] [place], [address] Chloride [Moles/Vol] 93 mmol/L Low 98-108 [facility] Comment on above: Performed By: #### L 500.4050 ####[facility] [address] [place], [address] CO2 [Moles/Vol] 31.1 mmol/L Normal 21.0-32.0 [facility] Comment on above: Performed By: #### L 500.4050 ####[facility] [address] [place], [address] Creatinine [Mass/Vol] 0.80 mg/dL Normal 0.70-1.20 [facility] Comment on above: Performed By: #### L 500.4050 ####[facility] [address] [place], [address] ECRCL 118.59 ml/min Normal 50-250 [facility] Comment on above: Performed By: #### L 500.4050 ####[facility] [address] [place], [address] GAP 7 Normal 5-15 [facility] Comment on above: Performed By: #### L 500.4050 ####[facility] [address] [place], [address] GFR/1.73 sq M.predicted among non-blacks MDRD (S/P/Bld) [Vol rate/Area] 103 mL/min/{1.73_m2} Normal >60 [facility] Comment on above: Result Comment: mL/m in/1.73m2 CKD-EPI Creatinine Equation (2020) Performed By: #### L 500.4050 ####[facility] [address] [place], [address] Globulin (S) [Mass/Vol] 2.5 g/dL Normal 2.2-4.2 [place] Comment on above: Performed By: #### L 500.4050 ####[facility] [address] [place], [address] Glucose [Mass/Vol] 174 mg/dL High 70-[address] [facility] Comment on above: Performed By: #### L 500.4050 ####[facility] [address] [place], [address] Potassium [Moles/Vol] 3.3 mmol/L Normal 3.3-5.1 [facility] Comment on above: Performed By: #### L 500.4050 ####[facility] [address] [place], [address] Sodium [Moles/Vol] 132 mmol/L Low 133-[address] [facility] Comment on above: Performed By: #### L 500.4050 ####[facility] [address] [place], [address] T PROT 4.8 g/dL Low 5.9-8.4 [facility] Comment on above: Performed By: #### L 500.4050 ####[facility] [address] [place], [address] Urea nitrogen [Mass/Vol] 6 mg/dL Normal 4-19 [facility] Comment on above: Performed By: #### L 500.4050 ####[facility] [address] [place], [address] Serum or plasma vancomycin m easurement (mass/volume)Ordered By: Cielo Tovar on 01-16-2025 Vancomycin [Mass/Vol] 7.7 ug/mL 0.0-15.0 [facility] Vancomycin, Random Levelon 0 01-16-2025 VANCO, RANDOM 7.7 ug/mL Normal 0.0-15.0 [facility] Comment on above: Result Comment: VANC OMYCIN STANDARD DRUG THERAPY: CRITICAL VALUE IS > 15.0 mg/LVANCOMYCIN HIGH INTENSITY THERAPY: CRITICAL VALUE IS > 20.0 mg/LPLEASE CONTACT PHARMACY SERVICES (#7645) FOR INTERPRETATIONOF RESULTS. THIS RESULT DOES NOT REPRESENT A PEAK OR TROUGHLEVEL FOR THIS DRUG. Performed By: #### L 501.8850 ####[facility] [address] [place], [address] Bedside Glucoseon 01-15-2025 FINGERSTICK GLU 237 mg/dL High [address] [place] [address] Comment on above: Result Comment: BRISA GEMENT OF PATIENT CARE PER NURSING PROTOCOL Performed By: #### L 501.080 ####[facility] [address] [place], [address] FINGERSTICK GLU 240 mg/dL High [address] [place] [address] Comment on above: Result Comment: BRISA GEMENT OF PATIENT CARE PER NURSING PROTOCOL Performed By: #### L 501.080 ####[facility] [address] [place], [address] FINGERSTICK GLU 221 mg/dL High [address] [place] [address] Comment on above: Result Comment: BRISA GEMENT OF PATIENT CARE PER NURSING PROTOCOL Performed By: #### L 501.080 ####[facility] [address] [place], [address] FINGERSTICK GLU 167 mg/dL High [address] [place] [address] Comment on above: Result Comment: BRISA GEMENT OF PATIENT CARE PER NURSING PROTOCOL Performed By: #### L 501.080 ####[facility] [address] [place], [address] FINGERSTICK GLU 173 mg/dL High [address] [place] [address] Comment on above: Result Comment: BRISA GEMENT OF PATIENT CARE PER NURSING PROTOCOL Performed By: #### L 501.080 ####[facility] [address] [place], [address] CBC W/Diff, Automatedon -08 07-2024 Absolute Lymph 1.06 X10 3/uL Normal 0.83-4.51 [facility] Comment on above: Performed By: #### L 100.0100, L500.4050 ####[facility] [address] [place], [address] Absolute Neut 5.3 X10 3/uL Normal 2.0-7.7 [facility] Comment on above: Performed By: #### L 100.0100, L500.4050 ####[facility] [address] [place], [address] Basophils/100 WBC (Bld) 0.5 % Normal 0-1 [facility] Comment on above: Performed By: #### L 100.0100, L500.4050 ####[facility] [address] [place], [address] Eosinophils/100 WBC (Bld) 6.1 % High 0-5 [facility] Comment on above: Performed By: #### L 100.0100, L500.4050 ####[facility] [address] [place], [address] Erythrocyte distribution width (RBC) [Ratio] 18.6 % High 11.6-14.6 [facility] Comment on above: Performed By: #### L 100.0100, L500.4050 ####[facility] [address] [place], [address] Hematocrit (Bld) [Volume fraction] 23.2 % Low 40-54 [facility] Comment on above: Performed By: #### L 100.0100, L500.4050 ####[facility] [address] [place], [address] Hemoglobin (Bld) [Mass/Vol] 7.9 g/dL Low 13.0-16.5 [facility] Comment on above: Performed By: #### L 100.0100, L500.4050 ####[facility] [address] [place], [address] IG% 1.000 High 0.0-0.9 [facility] Comment on above: Result Comment: IG% - Immature Granulocytes (promyelocytes, myelocytes andmetamyelocytes) > 1% indicates that a LEFT SHIFT is Present. Performed By: #### L 100.0100, L500.4050 ####[facility] [address] [place], [address] Lymphocytes/100 WBC (Bld) 13.2 % Low 19-41 [facility] Comment on above: Performed By: #### L 100.0100, L500.4050 ####[facility] [address] [place], [address] MCH (RBC) [Entitic mass] 29.8 pg Normal 27.0-32.0 [facility] Comment on above: Performed By: #### L 100.0100, L500.4050 ####[facility] [address] [place], [address] MCHC (RBC) [Mass/Vol] 34.1 g/dL Normal 32-36 [facility] Comment on above: Performed By: #### L 100.0100, L500.4050 ####[facility] [address] [place], [address] MCV (RBC) [Entitic vol] 87.5 fL Normal 80-94 [facility] Comment on above: Performed By: #### L 100.0100, L500.4050 ####[facility] [address] [place], [address] Monocytes/100 WBC (Bld) 13.6 % High 0-10 [facility] Comment on above: Performed By: #### L 100.0100, L500.4050 ####[facility] [address] [place], [address] Neutrophils/100 WBC (Bld) 65.6 % Normal 47-70 [facility] Comment on above: Performed By: #### L 100.0100, L500.4050 ####[facility] [address] [place], [address] Nucleated RBC (Bld) [#/Vol] 0 10*3/uL Normal 0-5 [facility] Comment on above: Performed By: #### L 100.0100, L500.4050 ####[facility] [address] [place], [address] Platelet mean volume (Bld) [Entitic vol] 11.0 fL Normal 6.2-12.0 [facility] Comment on above: Performed By: #### L 100.0100, L500.4050 ####[facility] [address] [place], [address] Platelets (Bld) [#/Vol] 118 10*3/uL Low 150-450 [facility] Comment on above: Performed By: #### L 100.0100, L500.4050 ####[facility] [address] [place], [address] RBC (Bld) [#/Vol] 2.65 10*6/uL Low 4.6-6.2 [facility] Comment on above: Performed By: #### L 100.0100, L500.4050 ####[facility] [address] [place], [address] RDW SD 58.1 fl High 35.1-43.9 [facility] Comment on above: Performed By: #### L 100.0100, L500.4050 ####[facility] [address] [place], [address] WBC (Bld) [#/Vol] 8.0 10*3/uL Normal 4.4-11.[address] [facility] Comment on above: Performed By: #### L 100.0100, L500.4050 ####[facility] [address] [place], [address] Comprehensive Metabolic Prof ilon 01-15-2025 Albumin/Globulin [Mass ratio] 0.8 {ratio} Low 0.9-2.4 [facility] Comment on above: Performed By: #### L 100.0100, L500.4050 ####[facility] [address] [place], [address] ALK PHOS 275 U/L High 40-129 [facility] Comment on above: Performed By: #### L 100.0100, L500.4050 ####[facility] [address] [place], [address] ALT [Catalytic activity/Vol] 56 U/L High <=46 [facility] Comment on above: Performed By: #### L 100.0100, L500.4050 ####[facility] [address] [place], [address] AST [Catalytic activity/Vol] 64 U/L High <=37 [facility] Comment on above: Performed By: #### L 100.0100, L500.4050 ####[facility] [address] [place], [address] Bilirubin [Mass/Vol] 2.06 mg/dL High 0.00-1.30 [facility] Comment on above: Performed By: #### L 100.0100, L500.4050 ####[facility] [address] [place], [address] Calcium [Mass/Vol] 7.8 mg/dL Normal 7.6-11.[address] [facility] Comment on above: Performed By: #### L 100.0100, L500.4050 ####[facility] [address] [place], [address] Chloride [Moles/Vol] 94 mmol/L Low 98-108 [facility] Comment on above: Performed By: #### L 100.0100, L500.4050 ####[facility] [address] [place], [address] CO2 [Moles/Vol] 26.7 mmol/L Normal 21.0-32.0 [facility] Comment on above: Performed By: #### L 100.0100, L500.4050 ####[facility] [address] [place], [address] GAP 9 Normal 5-15 [facility] Comment on above: Performed By: #### L 100.0100, L500.4050 ####[facility] [address] [place], [address] Potassium [Moles/Vol] 3.2 mmol/L Low 3.3-5.1 [facility] Comment on above: Performed By: #### L 100.0100, L500.4050 ####[facility] [address] [place], [address] Sodium [Moles/Vol] 130 mmol/L Low 133-[address] [facility] Comment on above: Performed By: #### L 100.0100, L500.4050 ####[facility] [address] [place], [address] Albumin [Mass/Vol] 2.2 g/dL Low 3.5-5.[address] [facility] Comment on above: Performed By: #### L 100.0100, L500.4050 ####[facility] [address] [place], [address] BUN/CRE 6.0 RATIO Low 10-20 [facility] Comment on above: Performed By: #### L 100.0100, L500.4050 ####[facility] [address] [place], [address] Creatinine [Mass/Vol] 0.82 mg/dL Normal 0.70-1.20 [facility] Comment on above: Performed By: #### L 100.0100, L500.4050 ####[facility] [address] [place], [address] ECRCL 115.58 ml/min Normal 50-250 [facility] Comment on above: Performed By: #### L 100.0100, L500.4050 ####[facility] [address] [place], [address] GFR/1.73 sq M.predicted among non-blacks MDRD (S/P/Bld) [Vol rate/Area] 102 mL/min/{1.73_m2} Normal >60 [facility] Comment on above: Result Comment: mL/m in/1.73m2 CKD-EPI Creatinine Equation (2020) Performed By: #### L 100.0100, L500.4050 ####[facility] [address] [place], [address] Globulin (S) [Mass/Vol] 2.7 g/dL Normal 2.2-4.2 [place] Comment on above: Performed By: #### L 100.0100, L500.4050 ####[facility] [address] [place], [address] Glucose [Mass/Vol] 178 mg/dL High 70-[address] [facility] Comment on above: Performed By: #### L 100.0100, L500.4050 ####[facility] [address] [place], [address] T PROT 4.9 g/dL Low 5.9-8.4 [facility] Comment on above: Performed By: #### L 100.0100, L500.4050 ####[facility] [address] [place], [address] Urea nitrogen [Mass/Vol] 5 mg/dL Normal 4-19 [facility] Comment on above: Performed By: #### L 100.0100, L500.4050 ####[facility] [address] [place], [address] Vancomycin, Random Levelon 0 - VANCO, RANDOM 20.7 ug/mL High 0.0-15.0 [facility] Comment on above: Result Comment: VANC OMYCIN STANDARD DRUG THERAPY: CRITICAL VALUE IS > 15.0 mg/LVANCOMYCIN HIGH INTENSITY THERAPY: CRITICAL VALUE IS > 20.0 mg/LPLEASE CONTACT PHARMACY SERVICES (#3034) FOR INTERPRETATIONOF RESULTS. THIS RESULT DOES NOT REPRESENT A PEAK OR TROUGHLEVEL FOR THIS DRUG. Performed By: #### L 501.8850 ####[facility] [address] [place], [address] Bedside Glucoseon 01-14-2025 FINGERSTICK GLU 194 mg/dL High 74-106 [facility] Comment on above: Result Comment: BRISA GEMENT OF PATIENT CARE PER NURSING PROTOCOL Performed By: #### L 501.080 ####[facility] [address] [place], [address] FINGERSTICK GLU 261 mg/dL High 74-106 [facility] Comment on above: Result Comment: BRISA GEMENT OF PATIENT CARE PER NURSING PROTOCOL Performed By: #### L 501.080 ####[facility] [address] [place], [address] FINGERSTICK GLU 263 mg/dL High 74-106 [facility] Comment on above: Result Comment: BRISA GEMENT OF PATIENT CARE PER NURSING PROTOCOL Performed By: #### L 501.080 ####[facility] [address] [place], [address] CBC W/Diff, Automatedon 06-1 Absolute Lymph 1.09 X10 3/uL Normal 0.83-4.51 [facility] Comment on above: Performed By: #### L 100.0100, L500.4050 ####[facility] [address] [place], [address] Absolute Neut 5.3 X10 3/uL Normal 2.0-7.7 [facility] Comment on above: Performed By: #### L 100.0100, L500.4050 ####[facility] [address] [place], [address] Basophils/100 WBC (Bld) 0.4 % Normal 0-1 [facility] Comment on above: Performed By: #### L 100.0100, L500.4050 ####[facility] [address] [place], [address] Eosinophils/100 WBC (Bld) 5.5 % High 0-5 [facility] Comment on above: Performed By: #### L 100.0100, L500.4050 ####[facility] [address] [place], [address] Erythrocyte distribution width (RBC) [Ratio] 18.5 % High 11.6-14.6 [facility] Comment on above: Performed By: #### L 100.0100, L500.4050 ####[facility] [address] [place], [address] Hematocrit (Bld) [Volume fraction] 23.2 % Low 40-54 [facility] Comment on above: Performed By: #### L 100.0100, L500.4050 ####[facility] [address] [place], [address] Hemoglobin (Bld) [Mass/Vol] 7.8 g/dL Low 13.0-16.5 [facility] Comment on above: Performed By: #### L 100.0100, L500.4050 ####[facility] [address] [place], [address] IG% 1.000 High 0.0-0.9 [facility] Comment on above: Result Comment: IG% - Immature Granulocytes (promyelocytes, myelocytes andmetamyelocytes) > 1% indicates that a LEFT SHIFT is Present. Performed By: #### L 100.0100, L500.4050 ####[facility] [address] [place], [address] Lymphocytes/100 WBC (Bld) 13.5 % Low 19-41 [facility] Comment on above: Performed By: #### L 100.0100, L500.4050 ####[facility] [address] [place], [address] MCH (RBC) [Entitic mass] 29.5 pg Normal 27.0-32.0 [facility] Comment on above: Performed By: #### L 100.0100, L500.4050 ####[facility] [address] [place], [address] MCHC (RBC) [Mass/Vol] 33.6 g/dL Normal 32-36 [facility] Comment on above: Performed By: #### L 100.0100, L500.4050 ####[facility] [address] [place], [address] MCV (RBC) [Entitic vol] 87.9 fL Normal 80-94 [facility] Comment on above: Performed By: #### L 100.0100, L500.4050 ####[facility] [address] [place], [address] Monocytes/100 WBC (Bld) 14.3 % High 0-10 [facility] Comment on above: Performed By: #### L 100.0100, L500.4050 ####[facility] [address] [place], [address] Neutrophils/100 WBC (Bld) 65.3 % Normal 47-70 [facility] Comment on above: Performed By: #### L 100.0100, L500.4050 ####[facility] [address] [place], [address] Nucleated RBC (Bld) [#/Vol] 0 10*3/uL Normal 0-5 [facility] Comment on above: Performed By: #### L 100.0100, L500.4050 ####[facility] [address] [place], [address] Platelet mean volume (Bld) [Entitic vol] 11.8 fL Normal 6.2-12.0 [facility] Comment on above: Performed By: #### L 100.0100, L500.4050 ####[facility] [address] [place], [address] Platelets (Bld) [#/Vol] 121 10*3/uL Low 150-450 [facility] Comment on above: Performed By: #### L 100.0100, L500.4050 ####[facility] [address] [place], [address] RBC (Bld) [#/Vol] 2.64 10*6/uL Low 4.6-6.2 [facility] Comment on above: Performed By: #### L 100.0100, L500.4050 ####[facility] [address] [place], [address] RDW SD 58.4 fl High 35.1-43.9 [facility] Comment on above: Performed By: #### L 100.0100, L500.4050 ####[facility] [address] [place], [address] WBC (Bld) [#/Vol] 8.1 10*3/uL Normal 4.4-11.[address] [facility] Comment on above: Performed By: #### L 100.0100, L500.4050 ####[facility] [address] [place], [address] Chest without Contraston Chest without Contrast Normal [facility] Comprehensive Metabolic Prof ilon 01-14-2025 Albumin [Mass/Vol] 2.4 g/dL Low 3.5-5.[address] [facility] Comment on above: Performed By: #### L 100.0100, L500.4050 ####[facility] [address] [place], [address] Albumin/Globulin [Mass ratio] 0.9 {ratio} Normal 0.9-2.4 [facility] Comment on above: Performed By: #### L 100.0100, L500.4050 ####[facility] [address] [place], [address] ALK PHOS 293 U/L High 40-129 [facility] Comment on above: Performed By: #### L 100.0100, L500.4050 ####[facility] [address] [place], [address] ALT [Catalytic activity/Vol] 61 U/L High <=46 [facility] Comment on above: Performed By: #### L 100.0100, L500.4050 ####[facility] [address] [place], [address] AST [Catalytic activity/Vol] 83 U/L High <=37 [facility] Comment on above: Performed By: #### L 100.0100, L500.4050 ####[facility] [address] [place], [address] Bilirubin [Mass/Vol] 2.64 mg/dL High 0.00-1.30 [facility] Comment on above: Performed By: #### L 100.0100, L500.4050 ####[facility] [address] [place], [address] BUN/CRE 6.4 RATIO Low 10-20 [facility] Comment on above: Performed By: #### L 100.0100, L500.4050 ####[facility] [address] [place], [address] Calcium [Mass/Vol] 7.9 mg/dL Normal 7.6-11.[address] [facility] Comment on above: Performed By: #### L 100.0100, L500.4050 ####[facility] [address] [place], [address] Chloride [Moles/Vol] 95 mmol/L Low 98-108 [facility] Comment on above: Performed By: #### L 100.0100, L500.4050 ####[facility] [address] [place], [address] CO2 [Moles/Vol] 25.1 mmol/L Normal 21.0-32.0 [facility] Comment on above: Performed By: #### L 100.0100, L500.4050 ####[facility] [address] [place], [address] Creatinine [Mass/Vol] 0.86 mg/dL Normal 0.70-1.20 [facility] Comment on above: Performed By: #### L 100.0100, L500.4050 ####[facility] [address] [place], [address] ECRCL 110.10 ml/min Normal 50-250 [facility] Comment on above: Performed By: #### L 100.0100, L500.4050 ####[facility] [address] [place], [address] GAP 11 Normal 5-15 [facility] Comment on above: Performed By: #### L 100.0100, L500.4050 ####[facility] [address] [place], [address] GFR/1.73 sq M.predicted among non-blacks MDRD (S/P/Bld) [Vol rate/Area] 100 mL/min/{1.73_m2} Normal >60 [facility] Comment on above: Result Comment: mL/m in/1.73m2 CKD-EPI Creatinine Equation (2020) Performed By: #### L 100.0100, L500.4050 ####[facility] [address] [place], [address] Globulin (S) [Mass/Vol] 2.5 g/dL Normal 2.2-4.2 [facility] Comment on above: Performed By: #### L 100.0100, L500.4050 ####[facility] [address] [place], [address] Glucose [Mass/Vol] 280 mg/dL High 70-[address] [facility] Comment on above: Performed By: #### L 100.0100, L500.4050 ####[facility] [address] [place], [address] Potassium [Moles/Vol] 3.0 mmol/L Low 3.3-5.1 [facility] Comment on above: Performed By: #### L 100.0100, L500.4050 ####[facility] [address] [place], [address] Sodium [Moles/Vol] 131 mmol/L Low 133-[address] [facility] Comment on above: Performed By: #### L 100.0100, L500.4050 ####[facility] [address] [place], [address] T PROT 4.9 g/dL Low 5.9-8.4 [facility] Comment on above: Performed By: #### L 100.0100, L500.4050 ####[facility] [address] [place], [address] Urea nitrogen [Mass/Vol] 6 mg/dL Normal 4-19 [facility] Comment on above: Performed By: #### L 100.0100, L500.4050 ####[facility] [address] [place], [address] Culture, Blood (WB)on 2024 CUB Blood cultures x2, f rom two different sites No growth in 5 days. Normal [facility] Comment on above: Performed By: #### M 200.1000 ####[facility] [address] [place], [address] Magnetic resonance imaging r eportOrdered By: Kenneth Barton on 01-14-2025 Study report [facility] Work Phone: PSA,Total- Diagnosticon 01-02 PSA, DIAGNOSTIC 0.65 ng/mL Normal 0.00-4.00 [facility] Comment on above: Result Comment: This test was performed using the [employer] tPSAmethod. Measured values of a patient??sample can varydepending on the testing procedure used. PSA valuesdetermined on patient samples by different testingprocedures cannot be used interchangeably. If there is achange in PSA assays while monitoring therapy, sequentialtesting should be performed to confirm baseline values. Performed By: #### L 501.9968 ####[facility] [address] [place], [address] Trough vancomycin levelOrder ed By: Cielo Tovar on 01-14-2025 Vancomycin trough [Mass/Vol] 21.4 ug/mL High 5.0-15.0 [facility] Vancomycin, Trough Levelon 0 01-14-2025 VANCO, TROUGH 21.4 ug/mL High 5.0-15.0 [facility] Comment on above: Order Comment: 1830 Result [...] therapy recommended for serious lifethreatening infections include:- Bvydmhkpzu-Pbrdqpyzrffy-Oggtizhhh (Ventilator/Healtcare Associated)-SepsisPLEASE CONTACT PHARMACY SERVICES (#4810) FOR INTERPRETATIONOF RESULTS. Performed By: #### L 501.8820 ####[facility] [address] [place], [address] BRCon 01-13-2025 Normal [facility] Comment on above: Result Comment: [id number] ON RC TRANSFUSED 01/13/25 1613 Performed By: #### B , BTS ####[facility] [address] [place], [address] Bedside Glucoseon 01-13-2025 FINGERSTICK GLU 272 mg/dL High [address] [place] [address] Comment on above: Result Comment: BRISA GEMENT OF PATIENT CARE PER NURSING PROTOCOL Performed By: #### L 501.080 ####[facility] [address] [place], [address] FINGERSTICK GLU 268 mg/dL High [address] [place] [address] Comment on above: Result Comment: BRISA GEMENT OF PATIENT CARE PER NURSING PROTOCOL Performed By: #### L 501.080 ####[facility] [address] [place], [address] FINGERSTICK GLU 249 mg/dL High [address] [place] [address] Comment on above: Result Comment: BRISA GEMENT OF PATIENT CARE PER NURSING PROTOCOL Performed By: #### L 501.080 ####[facility] [address] [place], [address] FINGERSTICK GLU 201 mg/dL High 74-106 [facility] Comment on above: Result Comment: BRISA MOROCHO OF PATIENT CARE PER NURSING PROTOCOL Performed By: #### L 501.080 ####[facility] [address] [place], [address] CBC W/Diff, Automatedon - Absolute Lymph 1.25 X10 3/uL Normal 0.83-4.51 [facility] Comment on above: Performed By: #### L 100.0100, L500.4050 ####[facility] [address] [place], [address] Absolute Neut 5.7 X10 3/uL Normal 2.0-7.7 [facility] Comment on above: Performed By: #### L 100.0100, L500.4050 ####[facility] [address] [place], [address] Basophils/100 WBC (Bld) 0.3 % Normal 0-1 [facility] Comment on above: Performed By: #### L 100.0100, L500.4050 ####[facility] [address] [place], [address] Eosinophils/100 WBC (Bld) 5.2 % High 0-5 [facility] Comment on above: Performed By: #### L 100.0100, L500.4050 ####[facility] [address] [place], [address] Erythrocyte distribution width (RBC) [Ratio] 18.6 % High 11.6-14.6 [facility] Comment on above: Performed By: #### L 100.0100, L500.4050 ####[facility] [address] [place], [address] Hematocrit (Bld) [Volume fraction] 21.0 % Low 40-54 [facility] Comment on above: Performed By: #### L 100.0100, L500.4050 ####[facility] [address] [place], [address] Hemoglobin (Bld) [Mass/Vol] 7.2 g/dL Low 13.0-16.5 [facility] Comment on above: Performed By: #### L 100.0100, L500.4050 ####[facility] [address] [place], [address] IG% 0.800 Normal 0.0-0.9 [facility] Comment on above: Result Comment: IG% - Immature Granulocytes (promyelocytes, myelocytes andmetamyelocytes) > 1% indicates that a LEFT SHIFT is Present. Performed By: #### L 100.0100, L500.4050 ####[facility] [address] [place], [address] Lymphocytes/100 WBC (Bld) 14.4 % Low 19-41 [facility] Comment on above: Performed By: #### L 100.0100, L500.4050 ####[facility] [address] [place], [address] MCH (RBC) [Entitic mass] 30.3 pg Normal 27.0-32.0 [facility] Comment on above: Performed By: #### L 100.0100, L500.4050 ####[facility] [address] [place], [address] MCHC (RBC) [Mass/Vol] 34.3 g/dL Normal 32-36 [facility] Comment on above: Performed By: #### L 100.0100, L500.4050 ####[facility] [address] [place], [address] MCV (RBC) [Entitic vol] 88.2 fL Normal 80-94 [facility] Comment on above: Performed By: #### L 100.0100, L500.4050 ####[facility] [address] [place], [address] Monocytes/100 WBC (Bld) 13.7 % High 0-10 [facility] Comment on above: Performed By: #### L 100.0100, L500.4050 ####[facility] [address] [place], [address] Neutrophils/100 WBC (Bld) 65.6 % Normal 47-70 [facility] Comment on above: Performed By: #### L 100.0100, L500.4050 ####[facility] [address] [place], [address] Nucleated RBC (Bld) [#/Vol] 0 10*3/uL Normal 0-5 [facility] Comment on above: Performed By: #### L 100.0100, L500.4050 ####[facility] [address] [place], [address] Platelet mean volume (Bld) [Entitic vol] 11.3 fL Normal 6.2-12.0 [facility] Comment on above: Performed By: #### L 100.0100, L500.4050 ####[facility] [address] [place], [address] Platelets (Bld) [#/Vol] 124 10*3/uL Low 150-450 [facility] Comment on above: Performed By: #### L 100.0100, L500.4050 ####[facility] [address] [place], [address] RBC (Bld) [#/Vol] 2.38 10*6/uL Low 4.6-6.2 [facility] Comment on above: Performed By: #### L 100.0100, L500.4050 ####[facility] [address] [place], [address] RDW SD 59.2 fl High 35.1-43.9 [facility] Comment on above: Performed By: #### L 100.0100, L500.4050 ####[facility] [address] [place], [address] WBC (Bld) [#/Vol] 8.7 10*3/uL Normal 4.4-11.[address] [facility] Comment on above: Performed By: #### L 100.0100, L500.4050 ####[facility] [address] [place], [address] Comprehensive Metabolic Prof ilon 01-13-2025 Albumin [Mass/Vol] 2.3 g/dL Low 3.5-5.[address] [facility] Comment on above: Performed By: #### L 100.0100, L500.4050 ####[facility] [address] [place], [address] Albumin/Globulin [Mass ratio] 0.9 {ratio} Normal 0.9-2.4 [facility] Comment on above: Performed By: #### L 100.0100, L500.4050 ####[facility] [address] [place], [address] ALK PHOS 306 U/L High 40-129 [facility] Comment on above: Performed By: #### L 100.0100, L500.4050 ####[facility] [address] [place], [address] ALT [Catalytic activity/Vol] 72 U/L High <=46 [facility] Comment on above: Performed By: #### L 100.0100, L500.4050 ####[facility] [address] [place], [address] AST [Catalytic activity/Vol] 107 U/L High <=37 [facility] Comment on above: Performed By: #### L 100.0100, L500.4050 ####[facility] [address] [place], [address] Bilirubin [Mass/Vol] 1.69 mg/dL High 0.00-1.30 [facility] Comment on above: Performed By: #### L 100.0100, L500.4050 ####[facility] [address] [place], [address] BUN/CRE 7.3 RATIO Low 10-20 [facility] Comment on above: Performed By: #### L 100.0100, L500.4050 ####[facility] [address] [place], [address] Calcium [Mass/Vol] 7.7 mg/dL Normal 7.6-11.[address] [facility] Comment on above: Performed By: #### L 100.0100, L500.4050 ####[facility] [address] [place], [address] Chloride [Moles/Vol] 96 mmol/L Low 98-108 [facility] Comment on above: Performed By: #### L 100.0100, L500.4050 ####[facility] [address] [place], [address] CO2 [Moles/Vol] 25.5 mmol/L Normal 21.0-32.0 [facility] Comment on above: Performed By: #### L 100.0100, L500.4050 ####[facility] [address] [place], [address] Creatinine [Mass/Vol] 0.90 mg/dL Normal 0.70-1.20 [facility] Comment on above: Performed By: #### L 100.0100, L500.4050 ####[facility] [address] [place], [address] ECRCL 103.13 ml/min Normal 50-250 [facility] Comment on above: Performed By: #### L 100.0100, L500.4050 ####[facility] [address] [place], [address] GAP 10 Normal 5-15 [facility] Comment on above: Performed By: #### L 100.0100, L500.4050 ####[facility] [address] [place], [address] GFR/1.73 sq M.predicted among non-blacks MDRD (S/P/Bld) [Vol rate/Area] 99 mL/min/{1.73_m2} Normal >60 [facility] Comment on above: Result Comment: mL/m in/1.73m2 CKD-EPI Creatinine Equation (2020) Performed By: #### L 100.0100, L500.4050 ####[facility] [address] [place], [address] Globulin (S) [Mass/Vol] 2.6 g/dL Normal 2.2-4.2 [place] Comment on above: Performed By: #### L 100.0100, L500.4050 ####[facility] [address] [place], [address] Glucose [Mass/Vol] 187 mg/dL High 70-[address] [facility] Comment on above: Performed By: #### L 100.0100, L500.4050 ####[facility] [address] [place], [address] Potassium [Moles/Vol] 3.1 mmol/L Low 3.3-5.1 [facility] Comment on above: Performed By: #### L 100.0100, L500.4050 ####[facility] [address] [place], [address] Sodium [Moles/Vol] 132 mmol/L Low 133-[address] [facility] Comment on above: Performed By: #### L 100.0100, L500.4050 ####[facility] [address] [place], [address] T PROT 4.9 g/dL Low 5.9-8.4 [facility] Comment on above: Performed By: #### L 100.0100, L500.4050 ####[facility] [address] [place], [address] Urea nitrogen [Mass/Vol] 7 mg/dL Normal 4-19 [facility] Comment on above: Performed By: #### L 100.0100, L500.4050 ####[facility] [address] [place], [address] Ferritinon 01-13-2025 Ferritin [Mass/Vol] 76 ng/mL Normal 37-417 [facility] Comment on above: Performed By: #### L 503.6550, L503.6030 ####[facility] [address] [place], [address] Iron measurement (mass/mass) Ordered By: Cielo Tovar on 01-13-2025 Iron (Unsp spec) [Mass/Mass] 110 ug/dL 65-175 [facility] Iron+Iron Binding Capacityon 01-13-2025 TIBC 211 ug/dL Low 250-450 [facility] Comment on above: Performed By: #### L 503.6550, L503.6030 ####[facility] [address] [place], [address] Magnetic resonance imaging r eportOrdered By: Jerry Osorio on 01-13-2025 Study report [facility] No Panel InformationOrdered By: Cielo Tovar on 01-13-2025 101 ug/dL Low 228-428 [facility] Serum or plasma ferritin wei surement (mass/volume)Ordered By: Cielo Tovar on 01-13-2025 Ferritin [Mass/Vol] 76 ng/mL 37-417 [facility] Serum or plasma iron saturat ion measurement (mass fraction)Ordered By: Cielo Tovar on 01-13-2025 Iron saturation [Mass fraction] 52.1 % 9-55 [facility] Spine Lumbar (Routine)on Spine Lumbar (Routine) Normal [facility] Spine Thoracic (Routine)on 0 01-13-2025 Spine Thoracic (Routine) Normal [facility] Type AND Screenon 01-13-2025 ABO and Rh group Nom (Bld) Blood group O Rh(D) positive Normal [facility] Comment on above: Order Comment: CMV N EG? NNumber of units to transfuse: 1Reason for Ordering Blood: AcuteAre the blood/blood products to be transfused? YIs the patient having/had surgery? NNWhen ReadyNYA Performed By: #### B RC, BTS ####[facility] [address] [place], [address] Vancomycin, Trough Levelon 0 01-13-2025 VANCO, TROUGH 19.8 ug/mL High 5.0-15.0 [facility] Comment on above: Order Comment: Comme nts: Trough to be drawn 30 mins prior to scheduled [id number] Result Comment: Eleazar mmended goal trough ranges [...] therapy recommended for serious lifethreatening infections include:- Olbdzfswum-Cluonkmxnikn-Bmladxxgg (Ventilator/Healtcare Associated)-SepsisPLEASE CONTACT PHARMACY SERVICES (#8652) FOR INTERPRETATIONOF RESULTS. Performed By: #### L 501.8820 ####[facility] [address] [place], [address] Bedside Glucoseon 01-12-2025 FINGERSTICK GLU 241 mg/dL High 74-106 [facility] Comment on above: Result Comment: BRISA MOROCHO OF PATIENT CARE PER NURSING PROTOCOL Performed By: #### L 501.080 ####[facility] [address] [place], [address] FINGERSTICK GLU 316 mg/dL High 74-106 [facility] Comment on above: Result Comment: BRISA GEMENT OF PATIENT CARE PER NURSING PROTOCOL Performed By: #### L 501.080 ####[facility] [address] [place], [address] FINGERSTICK GLU 224 mg/dL High 74-106 [facility] Comment on above: Result Comment: BRISA GEMENT OF PATIENT CARE PER NURSING PROTOCOL Performed By: #### L 501.080 ####[facility] [address] [place], [address] FINGERSTICK GLU 214 mg/dL High 74-106 [facility] Comment on above: Result Comment: BRISA GEMENT OF PATIENT CARE PER NURSING PROTOCOL Performed By: #### L 501.080 ####[facility] [address] [place], [address] CBC W/Diff, Automatedon 06-08 04-2024 Absolute Lymph 0.99 X10 3/uL Normal 0.83-4.51 [facility] Comment on above: Performed By: #### L 100.0100, L500.4050 ####[facility] [address] [place], [address] Absolute Neut 5.9 X10 3/uL Normal 2.0-7.7 [facility] Comment on above: Performed By: #### L 100.0100, L500.4050 ####[facility] [address] [place], [address] Basophils/100 WBC (Bld) 0.5 % Normal 0-1 [facility] Comment on above: Performed By: #### L 100.0100, L500.4050 ####[facility] [address] [place], [address] Eosinophils/100 WBC (Bld) 6.5 % High 0-5 [facility] Comment on above: Performed By: #### L 100.0100, L500.4050 ####[facility] [address] [place], [address] Erythrocyte distribution width (RBC) [Ratio] 18.4 % High 11.6-14.6 [facility] Comment on above: Performed By: #### L 100.0100, L500.4050 ####[facility] [address] [place], [address] Hematocrit (Bld) [Volume fraction] 21.8 % Low 40-54 [facility] Comment on above: Performed By: #### L 100.0100, L500.4050 ####[facility] [address] [place], [address] Hemoglobin (Bld) [Mass/Vol] 7.4 g/dL Low 13.0-16.5 [facility] Comment on above: Performed By: #### L 100.0100, L500.4050 ####[facility] [address] [place], [address] IG% 1.100 High 0.0-0.9 [facility] Comment on above: Result Comment: IG% - Immature Granulocytes (promyelocytes, myelocytes andmetamyelocytes) > 1% indicates that a LEFT SHIFT is Present. Performed By: #### L 100.0100, L500.4050 ####[facility] [address] [place], [address] Lymphocytes/100 WBC (Bld) 11.6 % Low 19-41 [facility] Comment on above: Performed By: #### L 100.0100, L500.4050 ####[facility] [address] [place], [address] MCH (RBC) [Entitic mass] 29.5 pg Normal 27.0-32.0 [facility] Comment on above: Performed By: #### L 100.0100, L500.4050 ####[facility] [address] [place], [address] MCHC (RBC) [Mass/Vol] 33.9 g/dL Normal 32-36 [facility] Comment on above: Performed By: #### L 100.0100, L500.4050 ####[facility] [address] [place], [address] MCV (RBC) [Entitic vol] 86.9 fL Normal 80-94 [place] Comment on above: Performed By: #### L 100.0100, L500.4050 ####[facility] [address] [place], [address] Monocytes/100 WBC (Bld) 12.1 % High 0-10 [place] Comment on above: Performed By: #### L 100.0100, L500.4050 ####[facility] [address] [place], [address] Neutrophils/100 WBC (Bld) 68.2 % Normal 47-70 [facility] Comment on above: Performed By: #### L 100.0100, L500.4050 ####[facility] [address] [place], [address] Nucleated RBC (Bld) [#/Vol] 0 10*3/uL Normal 0-5 [facility] Comment on above: Performed By: #### L 100.0100, L500.4050 ####[facility] [address] [place], [address] Platelet mean volume (Bld) [Entitic vol] 11.7 fL Normal 6.2-12.0 [facility] Comment on above: Performed By: #### L 100.0100, L500.4050 ####[facility] [address] [place], [address] Platelets (Bld) [#/Vol] 127 10*3/uL Low 150-450 [facility] Comment on above: Performed By: #### L 100.0100, L500.4050 ####[facility] [address] [place], [address] RBC (Bld) [#/Vol] 2.51 10*6/uL Low 4.6-6.2 [facility] Comment on above: Performed By: #### L 100.0100, L500.4050 ####[facility] [address] [place], [address] RDW SD 57.6 fl High 35.1-43.9 [facility] Comment on above: Performed By: #### L 100.0100, L500.4050 ####[facility] [address] [place], [address] WBC (Bld) [#/Vol] 8.6 10*3/uL Normal 4.4-11.[address] [facility] Comment on above: Performed By: #### L 100.0100, L500.4050 ####[facility] [address] [place], [address] Comprehensive Metabolic Prof tnon 01-12-2025 Albumin [Mass/Vol] 2.4 g/dL Low 3.5-5.[address] [facility] Comment on above: Performed By: #### L 100.0100, L500.4050 ####[facility] [address] [place], [address] Albumin/Globulin [Mass ratio] 0.9 {ratio} Normal 0.9-2.4 [facility] Comment on above: Performed By: #### L 100.0100, L500.4050 ####[facility] [address] [place], [address] ALK PHOS 332 U/L High 40-129 [facility] Comment on above: Performed By: #### L 100.0100, L500.4050 ####[facility] [address] [place], [address] ALT [Catalytic activity/Vol] 82 U/L High <=46 [facility] Comment on above: Performed By: #### L 100.0100, L500.4050 ####[facility] [address] [place], [address] AST [Catalytic activity/Vol] 148 U/L High <=37 [facility] Comment on above: Performed By: #### L 100.0100, L500.4050 ####[facility] [address] [place], [address] Bilirubin [Mass/Vol] 1.95 mg/dL High 0.00-1.30 [facility] Comment on above: Performed By: #### L 100.0100, L500.4050 ####[facility] [address] [place], [address] BUN/CRE 10.5 RATIO Normal 10-20 [facility] Comment on above: Performed By: #### L 100.0100, L500.4050 ####[facility] [address] [place], [address] Calcium [Mass/Vol] 7.6 mg/dL Normal 7.6-11.[address] [facility] Comment on above: Performed By: #### L 100.0100, L500.4050 ####[facility] [address] [place], [address] Chloride [Moles/Vol] 97 mmol/L Low 98-108 [facility] Comment on above: Performed By: #### L 100.0100, L500.4050 ####[facility] [address] [place], [address] CO2 [Moles/Vol] 24.4 mmol/L Normal 21.0-32.0 [facility] Comment on above: Performed By: #### L 100.0100, L500.4050 ####[facility] [address] [place], [address] Creatinine [Mass/Vol] 0.93 mg/dL Normal 0.70-1.20 [facility] Comment on above: Performed By: #### L 100.0100, L500.4050 ####[facility] [address] [place], [address] ECRCL 99.17 ml/min Normal 50-250 [facility] Comment on above: Performed By: #### L 100.0100, L500.4050 ####[facility] [address] [place], [address] GAP 9 Normal 5-15 [facility] Comment on above: Performed By: #### L 100.0100, L500.4050 ####[facility] [address] [place], [address] GFR/1.73 sq M.predicted among non-blacks MDRD (S/P/Bld) [Vol rate/Area] 95 mL/min/{1.73_m2} Normal >60 [facility] Comment on above: Result Comment: mL/m in/1.73m2 CKD-EPI Creatinine Equation (2020) Performed By: #### L 100.0100, L500.4050 ####[facility] [address] [place], [address] Globulin (S) [Mass/Vol] 2.7 g/dL Normal 2.2-4.2 [place] Comment on above: Performed By: #### L 100.0100, L500.4050 ####[facility] [address] [place], [address] Glucose [Mass/Vol] 241 mg/dL High 70-[address] [facility] Comment on above: Performed By: #### L 100.0100, L500.4050 ####[facility] [address] [place], [address] Potassium [Moles/Vol] 3.1 mmol/L Low 3.3-5.1 [facility] Comment on above: Performed By: #### L 100.0100, L500.4050 ####[facility] [address] [place], [address] Sodium [Moles/Vol] 130 mmol/L Low 133-[address] [facility] Comment on above: Performed By: #### L 100.0100, L500.4050 ####[facility] [address] [place], [address] T PROT 5.0 g/dL Low 5.9-8.4 [facility] Comment on above: Performed By: #### L 100.0100, L500.4050 ####[facility] [address] [place], [address] Urea nitrogen [Mass/Vol] 10 mg/dL Normal 4-19 [facility] Comment on above: Performed By: #### L 100.0100, L500.4050 ####[facility] [address] [place], [address] Urine Cultureon 01-12-2025 URC Urine Culture Urine Culture Yeast, not Mary albicans [place] Count 25,000-50,000 Normal [facility] Comment on above: Performed By: #### M 100.2200 ####[facility] [address] [place], [address] Bedside Glucoseon 01-11-2025 FINGERSTICK GLU 258 mg/dL High 74-106 [facility] Comment on above: Result Comment: BRISA GEMENT OF PATIENT CARE PER NURSING PROTOCOL Performed By: #### L 501.080 ####[facility] [address] [place], [address] FINGERSTICK GLU 298 mg/dL High 74-106 [facility] Comment on above: Result Comment: BRISA GEMENT OF PATIENT CARE PER NURSING PROTOCOL Performed By: #### L 501.080 ####[facility] [address] [place], [address] FINGERSTICK GLU 268 mg/dL High 74-106 [facility] Comment on above: Result Comment: BRISA GEMENT OF PATIENT CARE PER NURSING PROTOCOL Performed By: #### L 501.080 ####[facility] [address] [place], [address] FINGERSTICK GLU 251 mg/dL High 74-106 [facility] Comment on above: Result Comment: BRISA GEMENT OF PATIENT CARE PER NURSING PROTOCOL Performed By: #### L 501.080 ####[facility] [address] [place], [address] CBC W/Diff, Automatedon 06-1 0-2025 Absolute Lymph 1.01 X10 3/uL Normal 0.83-4.51 [facility] Comment on above: Performed By: #### L 100.0100 ####[facility] [address] [place], [address] Absolute Neut 5.6 X10 3/uL Normal 2.0-7.7 [facility] Comment on above: Performed By: #### L 100.0100 ####[facility] [address] [place], [address] Basophils/100 WBC (Bld) 0.5 % Normal 0-1 [facility] Comment on above: Performed By: #### L 100.0100 ####[facility] [address] [place], [address] Eosinophils/100 WBC (Bld) 4.6 % Normal 0-5 [facility] Comment on above: Performed By: #### L 100.0100 ####[facility] [address] [place], [address] Erythrocyte distribution width (RBC) [Ratio] 18.6 % High 11.6-14.6 [facility] Comment on above: Performed By: #### L 100.0100 ####[facility] [address] [place], [address] Hematocrit (Bld) [Volume fraction] 21.8 % Low 40-54 [facility] Comment on above: Performed By: #### L 100.0100 ####[facility] [address] [place], [address] Hemoglobin (Bld) [Mass/Vol] 7.4 g/dL Low 13.0-16.5 [facility] Comment on above: Performed By: #### L 100.0100 ####[facility] [address] [place], [address] IG% 0.900 Normal 0.0-0.9 [facility] Comment on above: Result Comment: IG% - Immature Granulocytes (promyelocytes, myelocytes andmetamyelocytes) > 1% indicates that a LEFT SHIFT is Present. Performed By: #### L 100.0100 ####[facility] [address] [place], [address] Lymphocytes/100 WBC (Bld) 12.6 % Low 19-41 [facility] Comment on above: Performed By: #### L 100.0100 ####[facility] [address] [place], [address] MCH (RBC) [Entitic mass] 29.7 pg Normal 27.0-32.0 [facility] Comment on above: Performed By: #### L 100.0100 ####[facility] [address] [place], [address] MCHC (RBC) [Mass/Vol] 33.9 g/dL Normal 32-36 [facility] Comment on above: Performed By: #### L 100.0100 ####[facility] [address] [place], [address] MCV (RBC) [Entitic vol] 87.6 fL Normal 80-94 [place] Comment on above: Performed By: #### L 100.0100 ####[facility] [address] [place], [address] Monocytes/100 WBC (Bld) 11.8 % High 0-10 [place] Comment on above: Performed By: #### L 100.0100 ####[facility] [address] [place], [address] Neutrophils/100 WBC (Bld) 69.6 % Normal 47-70 [facility] Comment on above: Performed By: #### L 100.0100 ####[facility] [address] [place], [address] Nucleated RBC (Bld) [#/Vol] 0 10*3/uL Normal 0-5 [facility] Comment on above: Performed By: #### L 100.0100 ####[facility] [address] [place], [address] Platelet mean volume (Bld) [Entitic vol] 12.1 fL High 6.2-12.0 [facility] Comment on above: Performed By: #### L 100.0100 ####[facility] [address] [place], [address] Platelets (Bld) [#/Vol] 130 10*3/uL Low 150-450 [facility] Comment on above: Performed By: #### L 100.0100 ####[facility] [address] [place], [address] RBC (Bld) [#/Vol] 2.49 10*6/uL Low 4.6-6.2 [facility] Comment on above: Performed By: #### L 100.0100 ####[facility] [address] [place], [address] RDW SD 56.7 fl High 35.1-43.9 [facility] Comment on above: Performed By: #### L 100.0100 ####[facility] [address] [place], [address] WBC (Bld) [#/Vol] 8.0 10*3/uL Normal 4.4-11.[address] [facility] Comment on above: Performed By: #### L 100.0100 ####[facility] [address] [place], [address] Absolute Neut Normal 2.0-7.7 [facility] Comment on above: Result Comment: This specimen has been REJECTED due to Laboratory criteria:Clotted.DSCOTT has been notified of need of recollection.01/11/25555 Vitaliy Parrish Performed By: #### L 100.0100, L500.4050 ####[facility] [address] [place], [address] HCT Normal 40-54 [facility] Comment on above: Result Comment: This specimen has been REJECTED due to Laboratory criteria:Clotted.DSCOTT has been notified of need of recollection.01/11/25555 Vitaliy Parrish Performed By: #### L 100.0100, L500.4050 ####[facility] [address] [place], [address] HGB Normal 13.0-16.5 [facility] Comment on above: Result Comment: This specimen has been REJECTED due to Laboratory criteria:Clotted.DSCOTT has been notified of need of recollection.01/11/25555 Vitaliy Lillie Performed By: #### L 100.0100, L500.4050 ####[facility] [address] [place], [address] MCH Normal 27.0-32.0 [facility] Comment on above: Result Comment: This specimen has been REJECTED due to Laboratory criteria:Clotted.DSCOTT has been notified of need of recollection.01/11/25555 Vitaliy Lillie Performed By: #### L 100.0100, L500.4050 ####[facility] [address] [place], [address] MCHC Normal 32-36 [facility] Comment on above: Result Comment: This specimen has been REJECTED due to Laboratory criteria:Clotted.DSCOTT has been notified of need of recollection.01/11/25555 Vitaliy Parrish Performed By: #### L 100.0100, L500.4050 ####[facility] [address] [place], [address] MCV Normal 80-94 [facility] Comment on above: Result Comment: This specimen has been REJECTED due to Laboratory criteria:Clotted.DSCOTT has been notified of need of recollection.01/11/25555 Vitaliy Lillie Performed By: #### L 100.0100, L500.4050 ####[facility] [address] [place], [address] NEUT% Normal 47-70 [facility] Comment on above: Result Comment: This specimen has been REJECTED due to Laboratory criteria:Clotted.DSCOTT has been notified of need of recollection.01/11/25555 Vitaliy Parrish Performed By: #### L 100.0100, L500.4050 ####[facility] [address] [place], [address] PLT Normal 150-450 [facility] Comment on above: Result Comment: This specimen has been REJECTED due to Laboratory criteria:Clotted.DSCOTT has been notified of need of recollection.01/11/25555 Vitaliy Lillie Performed By: #### L 100.0100, L500.4050 ####[facility] [address] [place], [address] RBC Normal 4.6-6.2 [facility] Comment on above: Result Comment: This specimen has been REJECTED due to Laboratory criteria:Clotted.DSCOTT has been notified of need of recollection.01/11/25 [facility] Vitaliy Lillie Performed By: #### L 100.0100, L500.4050 ####[facility] [address] [place], [address] RDW CV Normal 11.6-14.6 [facility] Comment on above: Result Comment: This specimen has been REJECTED due to Laboratory criteria:Clotted.DSCOTT has been notified of need of recollection.01/11/25 Vitaliy Lillie Performed By: #### L 100.0100, L500.4050 ####[facility] [address] [place], [address] RDW SD Normal 35.1-43.9 [facility] Comment on above: Result Comment: This specimen has been REJECTED due to Laboratory criteria:Clotted.DSCOTT has been notified of need of recollection.01/11/25 Vitaliy Lillie Performed By: #### L 100.0100, L500.4050 ####[facility] [address] [place], [address] WBC Normal 4.4-11.0 [facility] Comment on above: Result Comment: This specimen has been REJECTED due to Laboratory criteria:Clotted.DSCOTT has been notified of need of recollection.01/11/25 Vitaliy Parrish Performed By: #### L 100.0100, L500.4050 ####[facility] [address] [place], [address] Comprehensive Metabolic Prof ilon 01-11-2025 Albumin [Mass/Vol] 2.2 g/dL Low 3.5-5.[address] [facility] Comment on above: Performed By: #### L 100.0100, L500.4050 ####[facility] [address] [place], [address] Albumin/Globulin [Mass ratio] 0.8 {ratio} Low 0.9-2.4 [facility] Comment on above: Performed By: #### L 100.0100, L500.4050 ####[facility] [address] [place], [address] ALK PHOS 314 U/L High 40-129 [facility] Comment on above: Performed By: #### L 100.0100, L500.4050 ####[facility] [address] [place], [address] ALT [Catalytic activity/Vol] 66 U/L High <=46 [facility] Comment on above: Performed By: #### L 100.0100, L500.4050 ####[facility] [address] [place], [address] AST [Catalytic activity/Vol] 137 U/L High <=37 [facility] Comment on above: Result Comment: Hemo lysis present, Results??could be affected.?? Performed By: #### L 100.0100, L500.4050 ####[facility] [address] [place], [address] Bilirubin [Mass/Vol] 2.05 mg/dL High 0.00-1.30 [facility] Comment on above: Performed By: #### L 100.0100, L500.4050 ####[facility] [address] [place], [address] BUN/CRE 13.4 RATIO Normal 10-20 [facility] Comment on above: Performed By: #### L 100.0100, L500.4050 ####[facility] [address] [place], [address] Calcium [Mass/Vol] 7.6 mg/dL Normal 7.6-11.[address] [facility] Comment on above: Performed By: #### L 100.0100, L500.4050 ####[facility] [address] [place], [address] Chloride [Moles/Vol] 99 mmol/L Normal 98-108 [facility] Comment on above: Performed By: #### L 100.0100, L500.4050 ####[facility] [address] [place], [address] CO2 [Moles/Vol] 17.3 mmol/L Low 21.0-32.0 [facility] Comment on above: Performed By: #### L 100.0100, L500.4050 ####[facility] [address] [place], [address] Creatinine [Mass/Vol] 1.18 mg/dL Normal 0.70-1.20 [facility] Comment on above: Performed By: #### L 100.0100, L500.4050 ####[facility] [address] [place], [address] ECRCL 78.27 ml/min Normal 50-250 [facility] Comment on above: Performed By: #### L 100.0100, L500.4050 ####[facility] [address] [place], [address] GAP 12 Normal 5-15 [facility] Comment on above: Performed By: #### L 100.0100, L500.4050 ####[facility] [address] [place], [address] GFR/1.73 sq M.predicted among non-blacks MDRD (S/P/Bld) [Vol rate/Area] 72 mL/min/{1.73_m2} Normal >60 [facility] Comment on above: Result Comment: mL/m in/1.73m2 CKD-EPI Creatinine Equation (2020) Performed By: #### L 100.0100, L500.4050 ####[facility] [address] [place], [address] Globulin (S) [Mass/Vol] 2.8 g/dL Normal 2.2-4.2 [place] Comment on above: Performed By: #### L 100.0100, L500.4050 ####[facility] [address] [place], [address] Glucose [Mass/Vol] 275 mg/dL High 70-[address] [facility] Comment on above: Performed By: #### L 100.0100, L500.4050 ####[facility] [address] [place], [address] Potassium [Moles/Vol] 3.5 mmol/L Normal 3.3-5.1 [facility] Comment on above: Result Comment: Hemo lysis present, Results??could be affected.?? Performed By: #### L 100.0100, L500.4050 ####[facility] [address] [place], [address] Sodium [Moles/Vol] 129 mmol/L Low 133-[address] [facility] Comment on above: Performed By: #### L 100.0100, L500.4050 ####[facility] [address] [place], [address] T PROT 5.0 g/dL Low 5.9-8.4 [facility] Comment on above: Performed By: #### L 100.0100, L500.4050 ####[facility] [address] [place], [address] Urea nitrogen [Mass/Vol] 16 mg/dL Normal 4-19 [facility] Comment on above: Performed By: #### L 100.0100, L500.4050 ####[facility] [address] [place], [place], [address] Consultation - Surgicalon Consultation - Surgical Normal [facility] Vancomycin, Random Levelon 0 01-11-2025 VANCO, RANDOM 14.8 ug/mL Normal 0.0-15.0 [facility] Comment on above: Result Comment: VANC OMYCIN STANDARD DRUG THERAPY: CRITICAL VALUE IS > 15.0 mg/LVANCOMYCIN HIGH INTENSITY THERAPY: CRITICAL VALUE IS > 20.0 mg/LPLEASE CONTACT PHARMACY SERVICES (#9104) FOR INTERPRETATIONOF RESULTS. THIS RESULT DOES NOT REPRESENT A PEAK OR TROUGHLEVEL FOR THIS DRUG. Performed By: #### L 501.8850 ####[facility] [address] [place], [place], [address] Vancomycin, Trough Levelon 0 01-11-2025 VANCO, TROUGH 21.8 ug/mL High 5.0-15.0 [facility] Comment on above: Order Comment: Comme nts: DRAW 30 MIN PRIOR TO [id number] Result Comment: Eleazar mmended goal trough ranges [...] therapy recommended for serious lifethreatening infections include:- Nignkineqi-Ttjhitdingqh-Vxsjjfvfc (Ventilator/Healtcare Associated)-SepsisPLEASE CONTACT PHARMACY SERVICES (#7139) FOR INTERPRETATIONOF RESULTS. Performed By: #### L 501.8820 ####[facility] [address] [place], [place], [address] Bedside Glucoseon 01-10-2025 FINGERSTICK GLU 193 mg/dL High 74-106 [facility] Comment on above: Result Comment: BRISA GEMENT OF PATIENT CARE PER NURSING PROTOCOL Performed By: #### L 501.080 ####[facility] [address] [place], [address] FINGERSTICK GLU 190 mg/dL High 74-106 [facility] Comment on above: Result Comment: BRISA GEMENT OF PATIENT CARE PER NURSING PROTOCOL Performed By: #### L 501.080 ####[facility] [address] [place], [address] FINGERSTICK GLU 195 mg/dL High 74-106 [facility] Comment on above: Result Comment: BRISA GEMENT OF PATIENT CARE PER NURSING PROTOCOL Performed By: #### L 501.080 ####[facility] [address] [place], [address] CBC W/Diff, Automatedon 06-0 9-2024 Absolute Lymph 0.85 X10 3/uL Normal 0.83-4.51 [facility] Comment on above: Order Comment: REDRA W. PREVIOUS SPECIMEN REJECTED DUE TOCONTAMINATION. 01/10/25410 Eliazar R Mancia. Performed By: #### L 100.0100 ####[facility] [address] [place], [address] Absolute Neut 7.3 X10 3/uL Normal 2.0-7.7 [facility] Comment on above: Order Comment: REDRA W. PREVIOUS SPECIMEN REJECTED DUE TOCONTAMINATION. 01/10/25410 Eliazar R Mancai. Performed By: #### L 100.0100 ####[facility] [address] [place], [address] Basophils/100 WBC (Bld) 0.5 % Normal 0-1 [facility] Comment on above: Order Comment: REDRA W. PREVIOUS SPECIMEN REJECTED DUE TOCONTAMINATION. 01/10/25410 Eliazar R Mancia. Performed By: #### L 100.0100 ####[facility] [address] [place], [address] Eosinophils/100 WBC (Bld) 5.9 % High 0-5 [facility] Comment on above: Order Comment: REDRA W. PREVIOUS SPECIMEN REJECTED DUE TOCONTAMINATION. 01/10/25410 Eliazar R Mancia. Performed By: #### L 100.0100 ####[facility] [address] [place], [address] Erythrocyte distribution width (RBC) [Ratio] 18.7 % High 11.6-14.6 [facility] Comment on above: Order Comment: REDRA W. PREVIOUS SPECIMEN REJECTED DUE TOCONTAMINATION. 01/10/25410 Eliazar R Mancia. Performed By: #### L 100.0100 ####[facility] [address] [place], [address] Hematocrit (Bld) [Volume fraction] 23.1 % Low 40-54 [facility] Comment on above: Order Comment: REDRA W. PREVIOUS SPECIMEN REJECTED DUE TOCONTAMINATION. 01/10/25410 Eliazar R Mancia. Performed By: #### L 100.0100 ####[facility] [address] [place], [address] Hemoglobin (Bld) [Mass/Vol] 7.4 g/dL Low 13.0-16.5 [facility] Comment on above: Order Comment: REDRA W. PREVIOUS SPECIMEN REJECTED DUE TOCONTAMINATION. 01/10/25410 Eliazar R Mancia. Performed By: #### L 100.0100 ####[facility] [address] [place], [address] IG% 0.500 Normal 0.0-0.9 [facility] Comment on above: Order Comment: REDRA W. PREVIOUS SPECIMEN REJECTED DUE TOCONTAMINATION. 01/10/25410 Eliazar R Mancia. Result Comment: IG% - Immature Granulocytes (promyelocytes, myelocytes andmetamyelocytes) > 1% indicates that a LEFT SHIFT is Present. Performed By: #### L 100.0100 ####[facility] [address] [place], [address] Lymphocytes/100 WBC (Bld) 8.8 % Low 19-41 [facility] Comment on above: Order Comment: REDRA W. PREVIOUS SPECIMEN REJECTED DUE TOCONTAMINATION. 01/10/25410 Eliazar R Mancia. Performed By: #### L 100.0100 ####[facility] [address] [place], [address] MCH (RBC) [Entitic mass] 29.2 pg Normal 27.0-32.0 [facility] Comment on above: Order Comment: REDRA W. PREVIOUS SPECIMEN REJECTED DUE TOCONTAMINATION. 01/10/25410 Eliazar R Mancia. Performed By: #### L 100.0100 ####[facility] [address] [place], [address] MCHC (RBC) [Mass/Vol] 32.0 g/dL Normal 32-36 [facility] Comment on above: Order Comment: REDRA W. PREVIOUS SPECIMEN REJECTED DUE TOCONTAMINATION. 01/10/25410 Eliazar R Mancia. Performed By: #### L 100.0100 ####[facility] [address] [place], [address] MCV (RBC) [Entitic vol] 91.3 fL Normal 80-94 [facility] Comment on above: Order Comment: REDRA W. PREVIOUS SPECIMEN REJECTED DUE TOCONTAMINATION. 01/10/25410 Eliazar R Mancia. Performed By: #### L 100.0100 ####[facility] [address] [place], [address] Monocytes/100 WBC (Bld) 8.2 % Normal 0-10 [facility] Comment on above: Order Comment: REDRA W. PREVIOUS SPECIMEN REJECTED DUE TOCONTAMINATION. 01/10/25410 Eliazar R Mancia. Performed By: #### L 100.0100 ####[facility] [address] [place], [address] Neutrophils/100 WBC (Bld) 76.1 % High 47-70 [facility] Comment on above: Order Comment: REDRA W. PREVIOUS SPECIMEN REJECTED DUE TOCONTAMINATION. 01/10/25410 Eliazar R Mancia. Performed By: #### L 100.0100 ####[facility] [facility] [address] [place], [address] Nucleated RBC (Bld) [#/Vol] 0 10*3/uL Normal 0-5 [facility] Comment on above: Order Comment: REDRA W. PREVIOUS SPECIMEN REJECTED DUE TOCONTAMINATION. 01/10/25410 Eliazar R Mancia. Performed By: #### L 100.0100 ####[facility] [address] [place], [address] Platelet mean volume (Bld) [Entitic vol] 12.3 fL High 6.2-12.0 [facility] Comment on above: Order Comment: REDRA W. PREVIOUS SPECIMEN REJECTED DUE TOCONTAMINATION. 01/10/25410 Eliazar R Mancia. Performed By: #### L 100.0100 ####[facility] [address] [place], [address] Platelets (Bld) [#/Vol] 110 10*3/uL Low 150-450 [facility] Comment on above: Order Comment: REDRA W. PREVIOUS SPECIMEN REJECTED DUE TOCONTAMINATION. 01/10/25410 Eliazar R Mancia. Performed By: #### L 100.0100 ####[facility] [address] [place], [address] RBC (Bld) [#/Vol] 2.53 10*6/uL Low 4.6-6.2 [facility] Comment on above: Order Comment: REDRA W. PREVIOUS SPECIMEN REJECTED DUE TOCONTAMINATION. 01/10/25410 Eliazar R Mancia. Performed By: #### L 100.0100 ####[facility] [address] [place], [address] RDW SD 60.1 fl High 35.1-43.9 [facility] Comment on above: Order Comment: REDRA W. PREVIOUS SPECIMEN REJECTED DUE TOCONTAMINATION. 01/10/25410 Eliazar Mancia. Performed By: #### L 100.0100 ####[facility] [address] [place], [address] WBC (Bld) [#/Vol] 9.6 10*3/uL Normal 4.4-11.[address] [facility] Comment on above: Order Comment: REDRA W. PREVIOUS SPECIMEN REJECTED DUE TOCONTAMINATION. 01/10/25410 Eliazar Gusman Mancia. Performed By: #### L 100.0100 ####[facility] [address] [place], [address] DIFF INDICATED? SCAN CRITERIA MET Normal [facility] Comment on above: Result Comment: This specimen has been REJECTED due to Laboratory criteria:Contaminated/Leaked.MONIKA has been notified of need of recollection.01/10/25408 Eliazar Gusman Mancia Performed By: #### L 100.0100, L500.4050 ####[facility] [address] [place], [address] Hemoglobin (Bld) [Mass/Vol] 5.5 g/dL Invalid Interpretation Code 13.0-16.5 [facility] Comment on above: Result Comment: This specimen has been REJECTED due to Laboratory criteria:Contaminated/Leaked.[facility] has been notified of need of recollection.01/10/25408 Eliazargonzalo ManciaCRITICAL VALUE CALLED TO PORTIA TAVAREZ (ICU)01/10/25 0336 Henry Calloway.RESULTS READ BACK BY SAME. Performed By: #### L 100.0100, L500.4050 ####[facility] [address] [place], [address] Absolute Lymph 4.28 X10 3/uL Normal 0.83-4.51 [facility] Comment on above: Result Comment: This specimen has been REJECTED due to Laboratory criteria:[facility].01/10/25408 Eliazar R Mancia Performed By: #### L 100.0100, L500.4050 ####[facility] [address] [place], [address] Absolute Neut 1.7 X10 3/uL Low 2.0-7.7 [facility] Comment on above: Result Comment: This specimen has been REJECTED due to Laboratory criteria:Contaminated/Leaked[facility] has been notified of need of recollection.01/10/25408 Eliazar R Mancia Performed By: #### L 100.0100, L500.4050 ####[facility] [address] [place], [address] BASO# 0.01 X10 3/uL Normal [facility] Comment on above: Result Comment: This specimen has been REJECTED due to Laboratory criteria:Contaminated/Leaked[facility] has been notified of need of recollection.01/10/25408 Eliazar R Mancia Performed By: #### L 100.0100, L500.4050 ####[facility] [address] [place], [address] Basophils/100 WBC (Bld) 0.2 % Normal 0-1 [facility] Comment on above: Result Comment: This specimen has been REJECTED due to Laboratory criteria:Contaminated/Leaked[facility] has been notified of need of recollection.01/10/25408 Eliazar R Mancia Performed By: #### L 100.0100, L500.4050 ####[facility] [address] [place], [address] EOS# 0.15 X10 3/uL Normal [facility] Comment on above: Result Comment: This specimen has been REJECTED due to Laboratory criteria:Contaminated/Leaked[facility] has been notified of need of recollection.01/10/25408 Eliazar R Mancia Performed By: #### L 100.0100, L500.4050 ####[facility] [address] [place], [address] Eosinophils/100 WBC (Bld) 2.4 % Normal 0-5 [facility] Comment on above: Result Comment: This specimen has been REJECTED due to Laboratory criteria:Contaminated/Leaked[facility] has been notified of need of recollection.01/10/25408 Eliazar R Mancia Performed By: #### L 100.0100, L500.4050 ####[facility] [address] [place], [address] Erythrocyte distribution width (RBC) [Ratio] 19.2 % High 11.6-14.6 [facility] Comment on above: Result Comment: This specimen has been REJECTED due to Laboratory criteria:Contaminated/Leaked[facility] has been notified of need of recollection.01/10/25408 Eliazar R Mancia Performed By: #### L 100.0100, L500.4050 ####[facility] [address] [place], [address] Hematocrit (Bld) [Volume fraction] 20.7 % Low 40-54 [facility] Comment on above: Result Comment: This specimen has been REJECTED due to Laboratory criteria:Contaminated/Leaked[facility] has been notified of need of recollection.01/10/25408 Eliazar R Mancia Performed By: #### L 100.0100, L500.4050 ####[facility] [address] [place], [address] IG# 0.020 X10 3/uL High 0.0-0.0 [facility] Comment on above: Result Comment: This specimen has been REJECTED due to Laboratory criteria:Contaminated/Leaked[facility] has been notified of need of recollection.01/10/25408 Eliazar R Mancia Performed By: #### L 100.0100, L500.4050 ####[facility] [address] [place], [address] IG% 0.300 Normal 0.0-0.9 [facility] Comment on above: Result Comment: This specimen has been REJECTED due to Laboratory criteria:Contaminated/Leaked[facility] has been notified of need of recollection.01/10/25408 Eliazar R BurnsIG% - Immature Granulocytes (promyelocytes, myelocytes andmetamyelocytes) > 1% indicates that a LEFT SHIFT is Present. Performed By: #### L 100.0100, L500.4050 ####[facility] [address] [place], [address] LYMPH# 4.28 X10 3/ul Normal 0.83-4.51 [facility] Comment on above: Result Comment: This specimen has been REJECTED due to Laboratory criteria:Contaminated/Leaked[facility] has been notified of need of recollection.01/10/25408 Eliazar R Mancia Performed By: #### L 100.0100, L500.4050 ####[facility] [address] [place], [address] Lymphocytes/100 WBC (Bld) 67.8 % High 19-41 [facility] Comment on above: Result Comment: This specimen has been REJECTED due to Laboratory criteria:Contaminated/Leaked[facility] has been notified of need of recollection.01/10/25408 Eliazar R Mancia Performed By: #### L 100.0100, L500.4050 ####[facility] [address] [place], [address] MCH (RBC) [Entitic mass] 29.4 pg Normal 27.0-32.0 [facility] Comment on above: Result Comment: This specimen has been REJECTED due to Laboratory criteria:Contaminated/Leaked[facility] has been notified of need of recollection.01/10/25408 Eliazar R Mancia Performed By: #### L 100.0100, L500.4050 ####[facility] [address] [place], [address] MCHC (RBC) [Mass/Vol] 26.6 g/dL Low 32-36 [facility] Comment on above: Result Comment: This specimen has been REJECTED due to Laboratory criteria:Contaminated/Leaked[facility] has been notified of need of recollection.01/10/25408 Eliazar R Mancia Performed By: #### L 100.0100, L500.4050 ####[facility] [address] [place], [address] MCV (RBC) [Entitic vol] 110.7 fL High 80-94 [facility] Comment on above: Result Comment: This specimen has been REJECTED due to Laboratory criteria:Contaminated/Leaked[facility] has been notified of need of recollection.01/10/25408 Eliazar R Mancia Performed By: #### L 100.0100, L500.4050 ####[facility] [address] [place], [address] MONO # 0.16 X10 3/uL Normal [facility] Comment on above: Result Comment: This specimen has been REJECTED due to Laboratory criteria:Contaminated/Leaked[facility] has been notified of need of recollection.01/10/25408 Eliazar R Mancia Performed By: #### L 100.0100, L500.4050 ####[facility] [address] [place], [address] Monocytes/100 WBC (Bld) 2.5 % Normal 0-10 [facility] Comment on above: Result Comment: This specimen has been REJECTED due to Laboratory criteria:Contaminated/Leaked[facility] has been notified of need of recollection.01/10/25408 Eliazar R Mancia Performed By: #### L 100.0100, L500.4050 ####[facility] [address] [place], [address] Neutrophil # 1.69 X10 3/uL Low 2.7-7.7 [facility] Comment on above: Result Comment: This specimen has been REJECTED due to Laboratory criteria:Contaminated/Leaked[facility] has been notified of need of recollection.01/10/25408 Eliazar R Mancia Performed By: #### L 100.0100, L500.4050 ####[facility] [address] [place], [address] Neutrophils/100 WBC (Bld) 26.8 % Low 47-70 [facility] Comment on above: Result Comment: This specimen has been REJECTED due to Laboratory criteria:Contaminated/Leaked[facility] has been notified of need of recollection.01/10/25408 Eliazar R Mancia Performed By: #### L 100.0100, L500.4050 ####[facility] [address] [place], [address] Nucleated RBC (Bld) [#/Vol] 0 10*3/uL Normal 0-5 [facility] Comment on above: Result Comment: This specimen has been REJECTED due to Laboratory criteria:Contaminated/Leaked[facility] has been notified of need of recollection.01/10/25408 Eliazar R Mancia Performed By: #### L 100.0100, L500.4050 ####[facility] [address] [place], [address] Platelet mean volume (Bld) [Entitic vol] 12.2 fL High 6.2-12.0 [facility] Comment on above: Result Comment: This specimen has been REJECTED due to Laboratory criteria:Contaminated/Leaked[facility] has been notified of need of recollection.01/10/25408 Eliazar R Mancia Performed By: #### L 100.0100, L500.4050 ####[facility] [address] [place], [address] Platelets (Bld) [#/Vol] 97 10*3/uL Low 150-450 [facility] Comment on above: Result Comment: This specimen has been REJECTED due to Laboratory criteria:Contaminated/Leaked[facility] has been notified of need of recollection.01/10/25408 Eliazar R Mancia Performed By: #### L 100.0100, L500.4050 ####[facility] [address] [place], [address] POSITIVE COUNT YES Abnormal [facility] Comment on above: Result Comment: This specimen has been REJECTED due to Laboratory criteria:Contaminated/Leaked[facility] has been notified of need of recollection.01/10/25408 Eliazar R Mancia Performed By: #### L 100.0100, L500.4050 ####[facility] [address] [place], [address] POSITIVE MORPH YES Abnormal [facility] Comment on above: Result Comment: This specimen has been REJECTED due to Laboratory criteria:Contaminated/Leaked[facility] has been notified of need of recollection.01/10/25408 Eliazar R Mancia Performed By: #### L 100.0100, L500.4050 ####[facility] [address] [place], [address] RBC (Bld) [#/Vol] 1.87 10*6/uL Low 4.6-6.2 [facility] Comment on above: Result Comment: This specimen has been REJECTED due to Laboratory criteria:Contaminated/Leaked[facility] has been notified of need of recollection.01/10/25408 Eliazar R Mancia Performed By: #### L 100.0100, L500.4050 ####[facility] [address] [place], [address] RDW SD 73.4 fl High 35.1-43.9 [facility] Comment on above: Result Comment: This specimen has been REJECTED due to Laboratory criteria:Contaminated/Leaked[facility] has been notified of need of recollection.01/10/25408 Eliazar R Mancia Performed By: #### L 100.0100, L500.4050 ####[facility] [address] [place], [address] WBC (Bld) [#/Vol] 6.3 10*3/uL Normal 4.4-11.[address] [facility] Comment on above: Result Comment: This specimen has been REJECTED due to Laboratory criteria:Contaminated/Leaked.MONIKA has been notified of need of recollection.01/10/25408 Eliazar R Mancia Performed By: #### L 100.0100, L500.4050 ####[facility] [address] [place], [address] Comprehensive Metabolic Prof ilon 01-10-2025 Albumin [Mass/Vol] 2.4 g/dL Low 3.5-5.[address] [facility] Comment on above: Order Comment: REDRA W. PREVIOUS SPECIMEN REJECTED DUE TOCONTAMINATION. 01/10/25409 Eliazar R Mancia. Performed By: #### L 500.4050, L501.5200, L501.2300 ####[facility] [address] [place], [address] Albumin/Globulin [Mass ratio] 0.9 {ratio} Normal 0.9-2.4 [facility] Comment on above: Order Comment: REDRA W. PREVIOUS SPECIMEN REJECTED DUE TOCONTAMINATION. 01/10/25409 Eliazar R Mancia. Performed By: #### L 500.4050, L501.5200, L501.2300 ####[facility] [address] [place], [address] ALK PHOS 244 U/L High 40-129 [facility] Comment on above: Order Comment: REDRA W. PREVIOUS SPECIMEN REJECTED DUE TOCONTAMINATION. 01/10/25409 Eliazar R Mancia. Performed By: #### L 500.4050, L501.5200, L501.2300 ####[facility] [address] [place], [address] ALT [Catalytic activity/Vol] 54 U/L High <=46 [facility] Comment on above: Order Comment: REDRA W. PREVIOUS SPECIMEN REJECTED DUE TOCONTAMINATION. 06/09/25 0410 Eliazar R Mancia. Performed By: #### L 500.4050, L501.5200, L501.2300 ####[facility] [address] [place], [address] AST [Catalytic activity/Vol] 101 U/L High <=37 [facility] Comment on above: Order Comment: REDRA W. PREVIOUS SPECIMEN REJECTED DUE TOCONTAMINATION. 01/10/25409 Eliazar R Mancia. Performed By: #### L 500.4050, L501.5200, L501.2300 ####[facility] [address] [place], [address] Bilirubin [Mass/Vol] 1.57 mg/dL High 0.00-1.30 [facility] Comment on above: Order Comment: REDRA W. PREVIOUS SPECIMEN REJECTED DUE TOCONTAMINATION. 01/10/25409 Eliazar R Mancia. Performed By: #### L 500.4050, L501.5200, L501.2300 ####[facility] [address] [place], [address] BUN/CRE 13.7 RATIO Normal 10-20 [facility] Comment on above: Order Comment: REDRA W. PREVIOUS SPECIMEN REJECTED DUE TOCONTAMINATION. 01/10/25409 Eliazar R Mancia. Performed By: #### L 500.4050, L501.5200, L501.2300 ####[facility] [address] [place], [address] Calcium [Mass/Vol] 7.8 mg/dL Normal 7.6-11.[address] [facility] Comment on above: Order Comment: REDRA W. PREVIOUS SPECIMEN REJECTED DUE TOCONTAMINATION. 01/10/25409 Eliazar R Mancia. Performed By: #### L 500.4050, L501.5200, L501.2300 ####[facility] [address] [place], [address] Chloride [Moles/Vol] 101 mmol/L Normal 98-108 [facility] Comment on above: Order Comment: REDRA W. PREVIOUS SPECIMEN REJECTED DUE TOCONTAMINATION. 01/10/25409 Eliazar R Mancia. Performed By: #### L 500.4050, L501.5200, L501.2300 ####[facility] [address] [place], [address] CO2 [Moles/Vol] 13.1 mmol/L Low 21.0-32.0 [facility] Comment on above: Order Comment: REDRA W. PREVIOUS SPECIMEN REJECTED DUE TOCONTAMINATION. 01/10/25409 Eliazar R Mancia. Performed By: #### L 500.4050, L501.5200, L501.2300 ####[facility] [address] [place], [address] Creatinine [Mass/Vol] 1.95 mg/dL High 0.70-1.20 [facility] Comment on above: Order Comment: REDRA W. PREVIOUS SPECIMEN REJECTED DUE TOCONTAMINATION. 01/10/25409 Eliazar R Mancia. Performed By: #### L 500.4050, L501.5200, L501.2300 ####[facility] [address] [place], [address] ECRCL 45.71 ml/min Low 50-250 [facility] Comment on above: Order Comment: REDRA W. PREVIOUS SPECIMEN REJECTED DUE TOCONTAMINATION. 01/10/25409 Eliazar R Mancia. Performed By: #### L 500.4050, L501.5200, L501.2300 ####[facility] [address] [place], [address] GAP 15 Normal 5-15 [facility] Comment on above: Order Comment: REDRA W. PREVIOUS SPECIMEN REJECTED DUE TOCONTAMINATION. 01/10/25409 Eliazar R Mancia. Performed By: #### L 500.4050, L501.5200, L501.2300 ####[facility] [address] [place], [address] GFR/1.73 sq M.predicted among non-blacks MDRD (S/P/Bld) [Vol rate/Area] 39 mL/min/{1.73_m2} Low >60 [facility] Comment on above: Order Comment: REDRA W. PREVIOUS SPECIMEN REJECTED DUE TOCONTAMINATION. 01/10/25409 Eliazar Mancia. Result Comment: mL/m in/1.73m2 CKD-EPI Creatinine Equation (2020) Performed By: #### L 500.4050, L501.5200, L501.2300 ####[facility] [address] [place], [address] Globulin (S) [Mass/Vol] 2.6 g/dL Normal 2.2-4.2 [place] Comment on above: Order Comment: REDRA W. PREVIOUS SPECIMEN REJECTED DUE TOCONTAMINATION. 01/10/25409 Eliazar R Mancia. Performed By: #### L 500.4050, L501.5200, L501.2300 ####[facility] [address] [place], [address] Glucose [Mass/Vol] 247 mg/dL High 70-[address] [facility] Comment on above: Order Comment: REDRA W. PREVIOUS SPECIMEN REJECTED DUE TOCONTAMINATION. 01/10/25409 Eliazar Gusman Mancia. Performed By: #### L 500.4050, L501.5200, L501.2300 ####[facility] [address] [place], [address] Potassium [Moles/Vol] 3.4 mmol/L Normal 3.3-5.1 [facility] Comment on above: Order Comment: REDRA W. PREVIOUS SPECIMEN REJECTED DUE TOCONTAMINATION. 01/10/25409 Eliazar R Mancia. Performed By: #### L 500.4050, L501.5200, L501.2300 ####[facility] [address] [place], [address] Sodium [Moles/Vol] 129 mmol/L Low 133-[address] [facility] Comment on above: Order Comment: REDRA W. PREVIOUS SPECIMEN REJECTED DUE TOCONTAMINATION. 01/10/25409 Eliazar R Mancai. Performed By: #### L 500.4050, L501.5200, L501.2300 ####[facility] [address] [place], [address] T PROT 5.0 g/dL Low 5.9-8.4 [facility] Comment on above: Order Comment: REDRA W. PREVIOUS SPECIMEN REJECTED DUE TOCONTAMINATION. 01/10/25409 Eliazar R Macnia. Performed By: #### L 500.4050, L501.5200, L501.2300 ####[facility] [address] [place], [address] Urea nitrogen [Mass/Vol] 27 mg/dL High 4-19 [facility] Comment on above: Order Comment: REDRA W. PREVIOUS SPECIMEN REJECTED DUE TOCONTAMINATION. 01/10/25409 Eliazar R Mancia. Performed By: #### L 500.4050, L501.5200, L501.2300 ####[facility] [address] [place], [address] ALB Normal 3.5-5.0 [facility] Comment on above: Result Comment: This specimen has been REJECTED due to Laboratory criteria:[place] notified of need of recollection.01/10/25408 Eliazar R Mancia Performed By: #### L 100.0100, L500.4050 ####[facility] [address] [place], [address] ALK PHOS Normal 40-129 [facility] Comment on above: Result Comment: This specimen has been REJECTED due to Laboratory criteria:[facility] of [facility].01/10/25408 Eliazar R Mancia Performed By: #### L 100.0100, L500.4050 ####[facility] [address] [place], [address] ALT Normal <=46 [facility] Comment on above: Result Comment: This specimen has been REJECTED due to Laboratory criteria:Contaminated/[facility]aked[facility] has been notified of need of recollection.01/10/25408 Eliazar R Mancia Performed By: #### L 100.0100, L500.4050 ####[facility] [address] [place], [address] AST Normal <=37 [facility] [facility] Comment on above: Result Comment: This specimen has been REJECTED due to Laboratory criteria:Contaminated/Leaked.[facility] has been notified of need of recollection.01/10/25408 Eliazar R Mancia Performed By: #### L 100.0100, L500.4050 ####[facility] [address] [facility] [address] BUN Normal 4-19 [facility] Comment on above: Result Comment: This specimen has been REJECTED due to Laboratory criteria:Contaminated/Leaked.[facility] has been notified of need of recollection.01/10/25408 Eliazar R Mancia Performed By: #### L 100.0100, L500.4050 ####[facility] [address] [place], [address] BUN/CRE Normal 10-20 [facility] Comment on above: Result Comment: This specimen has been REJECTED due to Laboratory criteria:Contaminated/Leaked.[facility] has been notified of need of recollection.01/10/25408 Eliazar R Mancia Performed By: #### L 100.0100, L500.4050 ####[facility] [address] [place], [address] Calcium Normal 7.6-11.0 [facility] Comment on above: Result Comment: This specimen has been REJECTED due to Laboratory criteria:Contaminated/Leaked.[facility] has been notified of need of recollection.01/10/25408 Eliazar R Mancia Performed By: #### L 100.0100, L500.4050 ####[facility] [address] [place], [address] CL Normal 98-108 [facility] Comment on above: Result Comment: This specimen has been REJECTED due to Laboratory criteria:Contaminated/Leaked.[facility] has been notified of need of recollection.01/10/25408 Eliazar R Mancia Performed By: #### L 100.0100, L500.4050 ####[facility] [address] [place], [address] CO2 Normal 21.0-32.0 [facility] Comment on above: Result Comment: This specimen has been REJECTED due to Laboratory criteria:Contaminated/Leaked.[facility] has been notified of need of recollection.01/10/25408 Eliazar R Mancia Performed By: #### L 100.0100, L500.4050 ####[facility] [address] [place], [address] CREAT,SERUM Normal 0.70-1.20 [facility] Comment on above: Result Comment: This specimen has been REJECTED due to Laboratory criteria:Contaminated/Leaked.[facility] has been notified of need of recollection.01/10/25408 Eliazar R Mancia Performed By: #### L 100.0100, L500.4050 ####[facility] [address] [place], [address] eGFR Normal >60 [facility] Comment on above: Result Comment: This specimen has been REJECTED due to Laboratory criteria:Contaminated/Leaked.[facility] has been notified of need of recollection.01/10/25408 Eliazar R Mancia Performed By: #### L 100.0100, L500.4050 ####[facility] [address] [place], [address] GAP Normal 5-15 [facility] Comment on above: Result Comment: This specimen has been REJECTED due to Laboratory criteria:Contaminated/Leaked.[facility] has been notified of need of recollection.01/10/25408 Eliazar R Mancia Performed By: #### L 100.0100, L500.4050 ####[facility] [address] [place], [address] GLU Normal 70-99 [facility] Comment on above: Result Comment: This specimen has been REJECTED due to Laboratory criteria:Contaminated/Leaked.[facility] has been notified of need of recollection.01/10/25408 Eliazar R Mancia Performed By: #### L 100.0100, L500.4050 ####[facility] [address] [facility] [address] Potassium Normal 3.3-5.1 [facility] Comment on above: Result Comment: This specimen has been REJECTED due to Laboratory criteria:Contaminated/Leaked.[facility] has been notified of need of recollection.01/10/25408 Eliazar R Mancia Performed By: #### L 100.0100, L500.4050 ####[facility] [address] [facility] [address] T BILI Normal 0.00-1.30 [facility] Comment on above: Result Comment: This specimen has been REJECTED due to Laboratory criteria:Contaminated/Leaked.[facility] has been notified of need of recollection.01/10/25408 Eliazar R Mancia Performed By: #### L 100.0100, L500.4050 ####[facility] [address] [facility] [address] T PROT Normal 5.9-8.4 [facility] Comment on above: Result Comment: This specimen has been REJECTED due to Laboratory criteria:Contaminated/Leaked.[facility] has been notified of need of recollection.01/10/25408 Eliazar R Mancia Performed By: #### L 100.0100, L500.4050 ####[facility] [address] [facility] [address] Comprehensive Metabolic Profil Normal 133-145 [facility] Comment on above: Result Comment: This specimen has been REJECTED due to Laboratory criteria:Contaminated/Leaked.[facility] has been notified of need of recollection.01/10/259 Eliazar Gusman Mancia Performed By: #### L 100.0100, L500.4050 ####[facility] [address] [place], [address] Magnesiumon 01-10-2025 Magnesium [Mass/Vol] 1.4 mg/dL Low 1.5-2.2 [facility] Comment on above: Order Comment: REDRA W. PREVIOUS SPECIMEN REJECTED DUE TOCONTAMINATION. 01/10/25409 Eliazar Gusman Mancia. Performed By: #### L 500.4050, L501.5200, L501.2300 ####[facility] [address], [address] Phosphoruson 01-10-2025 Phosphate [Mass/Vol] 3.5 mg/dL Normal 2.7-4.5 [facility] Comment on above: Order Comment: REDRA W. PREVIOUS SPECIMEN REJECTED DUE TOCONTAMINATION. 01/10/25409 Eliazar Mancia. Performed By: #### L 500.4050, L501.5200, L501.2300 ####[facility] [address] [place], [address] Abdomen/Pelvis without Conto n 01-09-2025 Abdomen/Pelvis without Cont Normal [facility] Absolute lymphocyte countOrd ered By: Breann Mendez on 01-09-2025 Lymphocytes Auto (Unsp spec) [#/Vol] 0.95 10*3/uL 0.83-4.51 [facility] Ammoniaon 01-09-2025 Ammonia (P) [Moles/Vol] 61.1 umol/L High 16-60 [facility] Comment on above: Performed By: #### L 503.5510 ####[facility] [address] [place], [address] Anion gap in Serum or Plasma Ordered By: Remus Ungbrandon on 01-09-2025 Anion gap [Moles/Vol] 13 mmol/L 5-15 [facility] Automated lymphocyte count a s percentage of total leukocytesOrdered By: Remus Ungur on 01-09-2025 Lymphocytes/100 WBC Auto (Unsp spec) 7.2 % Low 19-41 [facility] BUN/creatinine ratioOrdered By: Remus Ungur on 01-09-2025 Urea nitrogen/Creatinine [Mass ratio] 13.4 mg/mg 10- [facility] Basic Metabolic Profile (BMP )on 01-09-2025 BUN/CRE 13.8 RATIO Normal - [facility] Comment on above: Performed By: #### L 506.1001, L500.2500 ####[facility] [address] [place], [address] Calcium [Mass/Vol] 7.7 mg/dL Normal 7.6-11.[address] [facility] Comment on above: Performed By: #### L 506.1001, L500.2500 ####[facility] [address] [place], [address] Chloride [Moles/Vol] 106 mmol/L Normal 98-108 [facility] Comment on above: Performed By: #### L 506.1001, L500.2500 ####[facility] [address] [place], [address] CO2 [Moles/Vol] 14.1 mmol/L Low 21.0-32.0 [facility] Comment on above: Performed By: #### L 506.1001, L500.2500 ####[facility] [address] [place], [address] Creatinine [Mass/Vol] 1.78 mg/dL High 0.70-1.20 [facility] Comment on above: Performed By: #### L 506.1001, L500.2500 ####[facility] [address] [place], [address] ECRCL 50.08 ml/min Normal 50-250 [facility] Comment on above: Performed By: #### L 506.1001, L500.2500 ####[facility] [address] [place], [address] GAP 11 Normal 5-15 [facility] Comment on above: Performed By: #### L 506.1001, L500.2500 ####[facility] [address] [place], [address] GFR/1.73 sq M.predicted among non-blacks MDRD (S/P/Bld) [Vol rate/Area] 44 mL/min/{1.73_m2} Low >60 [facility] Comment on above: Result Comment: mL/m in/1.73m2 CKD-EPI Creatinine Equation (2020) Performed By: #### L 506.1001, L500.2500 ####[facility] [address] [place], [address] Glucose [Mass/Vol] 119 mg/dL High 70-[address] [facility] Comment on above: Performed By: #### L 506.1001, L500.2500 ####[facility] [address] [place], [address] Potassium [Moles/Vol] 3.7 mmol/L Normal 3.3-5.1 [facility] Comment on above: Performed By: #### L 506.1001, L500.2500 ####[facility] [address] [place], [address] Sodium [Moles/Vol] 132 mmol/L Low 133-[address] [facility] Comment on above: Performed By: #### L 506.1001, L500.2500 ####[facility] [address] [place], [address] Urea nitrogen [Mass/Vol] 25 mg/dL High 4-19 [facility] Comment on above: Performed By: #### L 506.1001, L500.2500 ####[facility] [address] [place], [address] Basophil percentageOrdered B y: Remus Ungur on 01-09-2025 Basophils/100 WBC (Bld) 0.4 % 0-1 [facility] Bedside Glucoseon 01-09-2025 FINGERSTICK GLU 143 mg/dL High 74-106 [facility] Comment on above: Result Comment: BRISA GEMENT OF PATIENT CARE PER NURSING PROTOCOL Performed By: #### L 501.080 ####[facility] [address] [place], [address] FINGERSTICK GLU 99 mg/dL Normal 74-106 [facility] Comment on above: Result Comment: BRISA GEMENT OF PATIENT CARE PER NURSING PROTOCOL Performed By: #### L 501.080 ####[facility] [address] [place], [address] Bilirubin Test strip Ql (U)O rdered By: Remus Ungbrandon on 01-09-2025 Bilirubin Ql (U) 1 mg/dL High Negative [facility] Bilirubin, totalOrdered By: Remus Ungur on 01-09-2025 Bilirubin [Mass/Vol] 1.15 mg/dL 0.00-1.30 [facility] Blood cultureOrdered By: Rem us Ungur on 01-09-2025 Bacteria identified Cx Nom (Bld) No growth in 5 days. [facility] Bacteria identified Cx Nom (Bld) No growth in 5 days. [facility] CBC W/Diff, Automatedon Absolute Lymph 0.95 X10 3/uL Normal 0.83-4.51 [facility] Comment on above: Performed By: #### L 503.6005, L100.0100, L500.4050 ####[facility] [address] [place], [address] Absolute Neut 10.6 X10 3/uL High 2.0-7.7 [facility] Comment on above: Performed By: #### L 503.6005, L100.0100, L500.4050 ####[facility] [address] [place], [address] Basophils/100 WBC (Bld) 0.4 % Normal 0-1 [facility] Comment on above: Performed By: #### L 503.6005, L100.0100, L500.4050 ####[facility] [address] [place], [address] Eosinophils/100 WBC (Bld) 4.2 % Normal 0-5 [facility] Comment on above: Performed By: #### L 503.6005, L100.0100, L500.4050 ####[facility] [address] [place], [address] Erythrocyte distribution width (RBC) [Ratio] 18.1 % High 11.6-14.6 [facility] Comment on above: Performed By: #### L 503.6005, L100.0100, L500.4050 ####[facility] [address] [place], [address] Hematocrit (Bld) [Volume fraction] 24.3 % Low 40-54 [facility] Comment on above: Performed By: #### L 503.6005, L100.0100, L500.4050 ####[facility] [address] [place], [address] Hemoglobin (Bld) [Mass/Vol] 7.9 g/dL Low 13.0-16.5 [facility] Comment on above: Performed By: #### L 503.6005, L100.0100, L500.4050 ####[facility] [address] [place], [address] IG% 0.900 Normal 0.0-0.9 [facility] Comment on above: Result Comment: IG% - Immature Granulocytes (promyelocytes, myelocytes andmetamyelocytes) > 1% indicates that a LEFT SHIFT is Present. Performed By: #### L 503.6005, L100.0100, L500.4050 ####[facility] [address] [place], [address] Lymphocytes/100 WBC (Bld) 7.2 % Low 19-41 [facility] Comment on above: Performed By: #### L 503.6005, L100.0100, L500.4050 ####[facility] [address] [place], [address] MCH (RBC) [Entitic mass] 29.4 pg Normal 27.0-32.0 [facility] Comment on above: Performed By: #### L 503.6005, L100.0100, L500.4050 ####[facility] [address] [place], [address] MCHC (RBC) [Mass/Vol] 32.5 g/dL Normal 32-36 [facility] Comment on above: Performed By: #### L 503.6005, L100.0100, L500.4050 ####[facility] [address] [place], [address] MCV (RBC) [Entitic vol] 90.3 fL Normal 80-94 [facility] Comment on above: Performed By: #### L 503.6005, L100.0100, L500.4050 ####[facility] [address] [place], [address] Monocytes/100 WBC (Bld) 6.7 % Normal 0-10 [facility] Comment on above: Performed By: #### L 503.6005, L100.0100, L500.4050 ####[facility] [address] [place], [address] Neutrophils/100 WBC (Bld) 80.6 % High 47-70 [facility] Comment on above: Performed By: #### L 503.6005, L100.0100, L500.4050 ####[facility] [address] [place], [address] Nucleated RBC (Bld) [#/Vol] 0 10*3/uL Normal 0-5 [facility] Comment on above: Performed By: #### L 503.6005, L100.0100, L500.4050 ####[facility] [address] [place], [address] Platelet mean volume (Bld) [Entitic vol] 11.7 fL Normal 6.2-12.0 [facility] Comment on above: Performed By: #### L 503.6005, L100.0100, L500.4050 ####[facility] [address] [place], [address] Platelets (Bld) [#/Vol] 114 10*3/uL Low 150-450 [facility] Comment on above: Performed By: #### L 503.6005, L100.0100, L500.4050 ####[facility] [address] [place], [address] RBC (Bld) [#/Vol] 2.69 10*6/uL Low 4.6-6.2 [facility] Comment on above: Performed By: #### L 503.6005, L100.0100, L500.4050 ####[facility] [address] [place], [address] RDW SD 57.5 fl High 35.1-43.9 [facility] Comment on above: Performed By: #### L 503.6005, L100.0100, L500.4050 ####[facility] [address] [place], [address] WBC (Bld) [#/Vol] 13.2 10*3/uL High 4.4-11.0 [facility] Comment on above: Performed By: #### L 503.6005, L100.0100, L500.4050 ####[facility] [address] [place], [address] CO2 (BldV) [Moles/Vol]Ordere d By: Yaritza Leo on 01-09-2025 CO2 [Moles/Vol] 15 mmol/L Low 23-33 [facility] CPK Total, Creatine Kinaseon 01-09-2025 CPK TOTAL 34 U/L Normal 24-195 [facility] Comment on above: Performed By: #### L 501.3403 ####[facility] [address] [place], [address] Carbon dioxide, total [Moles /volume] in Central venous bloodOrdered By: Breann Mendez on 01-09-2025 CO2 [Moles/Vol] 13.6 mmol/L Low 21.0-32.0 [facility] Chloride assayOrdered By: Josselyn Mendez on 01-09-2025 Chloride [Moles/Vol] 103 mmol/L 98-108 [facility] Comprehensive Metabolic Prof ilon 01-09-2025 Albumin [Mass/Vol] 2.4 g/dL Low 3.5-5.[address] [facility] Comment on above: Performed By: #### L 503.6005, L100.0100, L500.4050 ####[facility] [address] [place], [address] Albumin/Globulin [Mass ratio] 0.8 {ratio} Low 0.9-2.4 [facility] Comment on above: Performed By: #### L 503.6005, L100.0100, L500.4050 ####[facility] [address] [place], [address] ALK PHOS 196 U/L High 40-129 [facility] Comment on above: Performed By: #### L 503.6005, L100.0100, L500.4050 ####[facility] [address] [place], [address] ALT [Catalytic activity/Vol] 42 U/L Normal <=46 [facility] Comment on above: Performed By: #### L 503.6005, L100.0100, L500.4050 ####[facility] [address] [place], [address] AST [Catalytic activity/Vol] 68 U/L High <=37 [facility] Comment on above: Performed By: #### L 503.6005, L100.0100, L500.4050 ####[facility] [address] [place], [address] Bilirubin [Mass/Vol] 1.15 mg/dL Normal 0.00-1.30 [facility] Comment on above: Performed By: #### L 503.6005, L100.0100, L500.4050 ####[facility] [address] [place], [address] BUN/CRE 13.4 RATIO Normal 10-20 [facility] Comment on above: Performed By: #### L 503.6005, L100.0100, L500.4050 ####[facility] [address] [place], [address] Calcium [Mass/Vol] 8.4 mg/dL Normal 7.6-11.[address] [facility] Comment on above: Performed By: #### L 503.6005, L100.0100, L500.4050 ####[facility] [address] [place], [address] Chloride [Moles/Vol] 103 mmol/L Normal 98-108 [facility] Comment on above: Performed By: #### L 503.6005, L100.0100, L500.4050 ####[facility] [address] [place], [address] CO2 [Moles/Vol] 13.6 mmol/L Low 21.0-32.0 [facility] Comment on above: Performed By: #### L 503.6005, L100.0100, L500.4050 ####[facility] [address] [place], [address] Creatinine [Mass/Vol] 1.77 mg/dL High 0.70-1.20 [facility] Comment on above: Performed By: #### L 503.6005, L100.0100, L500.4050 ####[facility] [address] [place], [address] ECRCL 50.61 ml/min Normal 50-250 [facility] Comment on above: Performed By: #### L 503.6005, L100.0100, L500.4050 ####[facility] [address] [place], [address] GAP 13 Normal 5-15 [facility] Comment on above: Performed By: #### L 503.6005, L100.0100, L500.4050 ####[facility] [address] [place], [address] GFR/1.73 sq M.predicted among non-blacks MDRD (S/P/Bld) [Vol rate/Area] 44 mL/min/{1.73_m2} Low >60 [facility] Comment on above: Result Comment: mL/m in/1.73m2 CKD-EPI Creatinine Equation (2020) Performed By: #### L 503.6005, L100.0100, L500.4050 ####[facility] [address] [place], [address] Globulin (S) [Mass/Vol] 2.9 g/dL Normal 2.2-4.2 [place] Comment on above: Performed By: #### L 503.6005, L100.0100, L500.4050 ####[facility] [address] [place], [address] Glucose [Mass/Vol] 149 mg/dL High 70-[address] [facility] Comment on above: Performed By: #### L 503.6005, L100.0100, L500.4050 ####[facility] [address] [place], [address] Potassium [Moles/Vol] 3.6 mmol/L Normal 3.3-5.1 [facility] Comment on above: Performed By: #### L 503.6005, L100.0100, L500.4050 ####[facility] [address] [place], [address] Sodium [Moles/Vol] 129 mmol/L Low 133-[address] [facility] Comment on above: Performed By: #### L 503.6005, L100.0100, L500.4050 ####[facility] [address] [place], [address] T PROT 5.3 g/dL Low 5.9-8.4 [facility] Comment on above: Performed By: #### L 503.6005, L100.0100, L500.4050 ####[facility] [address] [place], [address] Urea nitrogen [Mass/Vol] 24 mg/dL High 4-19 [facility] Rehabilitation Comment on above: Performed By: #### L 503.6005, L100.0100, L500.4050 ####[facility] [address] 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 Normal [facility] Emergency Department Summary on 01-09-2025 Emergency Department Summary Normal [facility] Eosinophil percentageOrdered By: Breann Mendez on 01-09-2025 Eosinophils/100 WBC (Bld) 4.2 % 0-5 [facility] Erythrocyte distribution wid th ratioOrdered By: [facility] Mendez on 01-09-2025 Erythrocyte distribution width (RBC) [Ratio] 18.1 % High 11.6-14.6 [facility] Erythrocyte distribution wid th standard deviationOrdered By: [facility] Mendez on 01-09-2025 Erythrocyte distribution width (RBC) [Ratio] 57.5 fl High 35.1-43.9 [facility] Glomerular filtration rate ( GFR) estimation/1.73 sq m using serum, plasma, or whole bOrdered By: [facility] Mendez on 01-09-2025 GFR/1.73 sq M.predicted among non-blacks MDRD (S/P/Bld) [Vol rate/Area] 44 mL/min/{1.73_m2} Low >60 [facility] H AND P Exam - Hospitaliston 01-09-2025 H&P Exam - Hospitalist Normal [facility] Hematocrit Auto (Bld) [Volum e fraction]Ordered By: [facility] Mendez on 01-09-2025 Hematocrit (Bld) [Volume fraction] 24.3 % Low 40-54 [facility] Hemoglobin measurementOrdere d By: [facility] Mendez on 01-09-2025 Hemoglobin (Bld) [Mass/Vol] 7.9 g/dL Low 13.0-16.5 [facility] Immature granulocytes/100 WB C Auto (Bld)Ordered By: [facility] Mendez on 01-09-2025 Immature granulocytes/100 WBC (Bld) 0.900 % 0.0-0.9 [facility] Ketones Test strip Ql (U)Ord ered By: [facility] Ketones Ql (U) 5 mg/dl High Negative [facility] Lactic Acidon 01-09-2025 Lactate [Moles/Vol] 2.4 mmol/L Invalid Interpretation Code 0.0-2.0 [facility] Comment on above: Result Comment: Crit ical Result(s) Called at: 1829 by:??Yanet RENDON to Kal. Results read back by same. Performed By: #### L 483.3461 ####[facility] [address] [place], [place], [id number] Lactate [Moles/Vol] 3.1 mmol/L Invalid Interpretation Code 0.0-2.0 [facility] Comment on above: Order Comment: Y Result Comment: Crit ical Result(s) Called at 1108: by: AL RAMIREZ [facility]JI. ??Results read back by same. Performed By: #### L 503.6005, L100.0100, L500.4050 ####[facility] [address] [place], [address] M R Staph Aureus DNA by PCRo n 01-09-2025 MRSA DNA ASSAY Negative Normal Negative [facility] Comment on above: Performed By: #### L 8200.1000 ####[facility] [address] [place], [place], [id number] MCV (mean corpuscular volume ) determinationOrdered By: Breann Mendez on 01-09-2025 MCV (RBC) [Entitic vol] 90.3 fL 80-94 [facility] Mean corpuscular hemoglobin (MCH) determinationOrdered By: Remus Mendez on 01-09-2025 MCH (RBC) [Entitic mass] 29.4 pg 27.0-32.0 [facility] Monocyte percentageOrdered B y: Remus Ungbrandon on 01-09-2025 Monocytes/100 WBC (Bld) 6.7 % 0-10 [facility] Mucus LM Ql (Urine sed)Order ed By: Remus Vanessa on 01-09-2025 Mucus Ql (Urine sed) 0 SEEN /hpf [facility] Neutrophil percentageOrdered By: Remus Mendez on 01-09-2025 Neutrophils/100 WBC (Bld) 80.6 % High 47-70 [facility] Nitrite Test strip Ql (U)Ord ered By: Breann Mendez on 01-09-2025 Nitrite Ql (U) Negative Negative [facility] No Panel InformationOrdered By: Yaritza Leo on 01-09-2025 TRAMAINE [facility] Not entered [facility] No Panel InformationOrdered By: Breann Mendez on 01-09-2025 68 U/L High <38 [facility] Platelet countOrdered By: Josselyn Mendez on 01-09-2025 Platelets (Bld) [#/Vol] 114 10*3/uL Low 150-450 [facility] Potassium measurement (mass/ volume)Ordered By: Breann Mendez on 01-09-2025 Potassium (Unsp spec) [Mass/Vol] 3.6 mmol/L 3.3-5.1 [facility] Protein Test strip Ql (U)Ord ered By: Breann Mendez on 01-09-2025 Protein Ql (U) 500 mg/dl High Negative [facility] RBC Auto (Bld) [#/Vol]Ordere d By: Breann Mendez on 01-09-2025 RBC (Bld) [#/Vol] 2.69 10*6/uL Low 4.6-6.2 [facility] Serum creatinine measurement (mass/volume)Ordered By: Breann Mendez on 01-09-2025 Creatinine [Mass/Vol] 1.77 mg/dL High 0.70-1.20 [facility] Serum globulin measurementOr dered By: Breann Mendez on 01-09-2025 Globulin (S) [Mass/Vol] 2.9 g/dL 2.2-4.2 [place] Serum glucose measurement (m ass/volume)Ordered By: Breann Mendez on 01-09-2025 Glucose [Mass/Vol] 149 mg/dL High 70-[address] [facility] Serum or plasma alanine thomas otransferase (ALT) measurementOrdered By: Breann Mendez on 01-09-2025 ALT [Catalytic activity/Vol] 42 U/L <47 [facility] Serum or plasma albumin roosevelt urement (mass/volume)Ordered By: Breann Mendez on 01-09-2025 Albumin [Mass/Vol] 2.4 g/dL Low 3.5-5.[address] [facility] Serum or plasma albumin/glob ulin mass ratioOrdered By: Breann Mendez on 01-09-2025 Albumin/Globulin [Mass ratio] 0.8 {ratio} Low 0.9-2.4 [facility] Serum or plasma alkaline kendrick sphatase measurementOrdered By: Breann Mendez on 01-09-2025 ALP [Catalytic activity/Vol] 196 U/L High 40-129 [facility] Serum or plasma calcium roosevelt urement (mass/volume)Ordered By: Ramonaus Mendez on 01-09-2025 Calcium [Mass/Vol] 8.4 mg/dL 7.6-11.[address] [facility] Serum or plasma creatine kin ase activityOrdered By: Yaritza Leo on 01-09-2025 CK [Catalytic activity/Vol] 34 U/L 24-195 [facility] Serum or plasma urea nitroge n measurement (mass/volume)Ordered By: Breann Mendez on 01-09-2025 Urea nitrogen [Mass/Vol] 24 mg/dL High 4-19 [facility] Sodium levelOrdered By: Veena Mendez on 01-09-2025 Sodium [Moles/Vol] 129 mmol/L Low 133-[address] [facility] Squamous epithelial cells de tection in urine sediment by light microscopyOrdered By: Breann Mendez on 01-09-2025 Epithelial cells.squamous LM Ql (Urine sed) 0-5 SEEN /hpf 0-5 [facility] Total proteinOrdered By: Ramona Mendez on 01-09-2025 Protein [Mass/Vol] 5.3 g/dL Low 5.9-8.[address] [facility] Urinalysis, Completeon 01-09 EPI,SQUAMOUS 0-5 SEEN Normal 0-5 [facility] Comment on above: Order Comment: COLOR OF URINE MAY AFFECT DIPSTICK RESULTS.CLEAN CATCH Performed By: #### L 400.0001 ####[facility] [address] [place], [address] RBC > 100 SEEN Normal 0-5 [facility] Comment on above: Order Comment: COLOR OF URINE MAY AFFECT DIPSTICK RESULTS.CLEAN CATCH Performed By: #### L 400.0001 ####[facility] [address] [place], [address] WBC 50-100 SEEN Normal 0-5 [facility] Comment on above: Order Comment: COLOR OF URINE MAY AFFECT DIPSTICK RESULTS.CLEAN CATCH Performed By: #### L 400.0001 ####[facility] [address] [place], [address] BACTERIA 0 SEEN Normal None Seen [facility] Comment on above: Order Comment: COLOR OF URINE MAY AFFECT DIPSTICK RESULTS.CLEAN CATCH Performed By: #### L 400.0001 ####[facility] [address] [place], [address] Mucus Ql (Urine sed) 0 SEEN Normal [facility] Comment on above: Order Comment: COLOR OF URINE MAY AFFECT DIPSTICK RESULTS.CLEAN CATCH Performed By: #### L 400.0001 ####[facility] [address] [place], [place], [id number] Urine clarityOrdered By: Ramona Mendez on 01-09-2025 Clarity (U) Turbid Clear [facility] Urine color determinationOrd ered By: Breann Mendez on 01-09-2025 Color (U) Red Yellow [facility] Urine cultureOrdered By: Ramona Mendez on 01-09-2025 Bacteria identified Cx Nom (U) Yeast, not Mary albicans Abnormal [facility] Urine glucose detectionOrder ed By: Breann Mendez on 01-09-2025 Glucose Ql (U) Normal mg/dl Normal [facility] Urine leukocyte esterase det ection by dipstickOrdered By: Breann Mendez on 01-09-2025 Leukocyte esterase Test strip Ql (U) 500 /ul High Negative [facility] Urine pHOrdered By: Breann Landers gur on 01-09-2025 pH (U) 6.0 [pH] 5.0 - 8.0 [facility] Urine sediment bacteria coun t by microscopy (number/high power field)Ordered By: Breann Mendez on 01-09-2025 Bacteria LM.HPF (Urine sed) [#/Area] 0 /[HPF] None Seen [facility] Urine specific gravity measu rementOrdered By: Breann Mendez on 01-09-2025 Specific gravity (U) [Rel density] 1.015 1.002-1.030 [facility] Urine urobilinogen measureme ntOrdered By: Breann Mendez on 01-09-2025 Urobilinogen Ql (U) Normal mg/dl Normal [facility] Venous Blood Gason Blood Gas Type TRAMAINE Normal [facility] Comment on above: Performed By: #### L 9000.0810 ####[facility] [address] [place], [address] CO2 [Moles/Vol] 15 mmol/L Low 23-33 [facility] Comment on above: Performed By: #### L 9000.0810 ####[facility] [address] [place], [address] HCO3 (Bld) [Moles/Vol] 14 mmol/L Low 22-26 [facility] Comment on above: Performed By: #### L 9000.0810 ####[facility] [address] [place], [address] O2 Delivery Dev Not entered [facility] Comment on above: Performed By: #### L 9000.0810 ####[facility] [address] [place], [address] SITE Not entered [facility] Comment on above: Performed By: #### L 9000.0810 ####[facility] [address] [place], [address] VBG BE -11 mmol/L Low -1.0-3.5 [facility] Comment on above: Performed By: #### L 9000.0810 ####[facility] [address] [place], [address] VBG pCO2 24.7 mmHg Low 41-51 [facility] Comment on above: Performed By: #### L 9000.0810 ####[facility] [address] [place], [address] VBG pH 7.36 Normal 7.32-7.42 [facility] Comment on above: Performed By: #### L 9000.0810 ####[facility] [address] [place], [address] VBG PO2 49 mmHg High 25-40 [facility] Comment on above: Performed By: #### L 9000.0810 ####[facility] [address] [place], [place], [address] VBG SO2 84 High 50-70 [facility] Comment on above: Performed By: #### L 9000.0810 ####[facility] [address] [place], [place], [address] Venous blood ammonia measure mentOrdered By: Lupillo Robbins on 01-09-2025 Ammonia (P) [Moles/Vol] 61.1 umol/L High 16-60 [facility] Venous blood base excess wei surementOrdered By: Yaritza Leo on 01-09-2025 Base excess Calc (BldV) [Moles/Vol] -11 mmol/L Low -1.0-3.5 [facility] Venous blood bicarbonate wei surementOrdered By: Yaritza Leo on 01-09-2025 HCO3 (Bld) [Moles/Vol] 14 mmol/L Low 22-26 [facility] Venous blood pH measurementO rdered By: Yaritza Leo on 01-09-2025 pH (BldV) 7.36 [pH] 7.32-7.42 [facility] Venous blood partial pressur e of carbon dioxide measurementOrdered By: Yaritza Leo on 01-09-2025 CO2 (BldV) [Partial pressure] 24.7 mm[Hg] Low 41-51 [facility] Venous blood partial pressur e of oxygen measurementOrdered By: Yaritza Leo on 01-09-2025 Oxygen (BldV) [Partial pressure] 49 mm[Hg] High 25-40 [facility] Vitamin D,25 Hydroxyon 01-09 Vitamin D 25-OH 10.0 ng/mL Low 30-100 [facility] Comment on above: Result Comment: Sarah min D StatusDeficiency: <20 ng/mL (50nmol/L)Insufficiency: 20-30 ng/mL (50-75 nmol/L)Sufficiency: 30-100 ng/mL (75-250 nmol/L)Toxicity: >100 ng/mL (>250 nmol/L) Performed By: #### L 506.1001, L500.2500 ####[facility] [address] [place], [address] White blood cell (WBC) count Ordered By: Breann Mendez on 01-09-2025 WBC (Bld) [#/Vol] 13.2 10*3/uL High 4.4-11.0 [facility] White blood cell countOrdere d By: Breann Mendez on 01-09-2025 White blood cell count 50-100 SEEN /hpf 0-5 [facility] Basic Metabolic Profile (BMP )on 01-07-2025 BUN Normal 4-19 [facility] Comment on above: Result Comment: Canc elled via OM: Order cancelled - Patient discharged Performed By: #### L 500.2500, L100.0100 ####[facility] [address] [place], [address] BUN/CRE Normal 10-20 [facility] Comment on above: Result Comment: Canc elled via OM: Order cancelled - Patient discharged Performed By: #### L 500.2500, L100.0100 ####[facility] [address] [place], [address] Calcium Normal 7.6-11.0 [facility] Comment on above: Result Comment: Canc elled via OM: Order cancelled - Patient discharged Performed By: #### L 500.2500, L100.0100 ####[facility] [address] [place], [address] CL Normal 98-108 [facility] Comment on above: Result Comment: Canc elled via OM: Order cancelled - Patient discharged Performed By: #### L 500.2500, L100.0100 ####[facility] [address] [place], [address] CO2 Normal 21.0-32.0 [facility] Comment on above: Result Comment: Canc elled via OM: Order cancelled - Patient discharged Performed By: #### L 500.2500, L100.0100 ####[facility] [address] [place], [address] CREAT,SERUM Normal 0.70-1.20 [facility] Comment on above: Result Comment: Canc elled via OM: Order cancelled - Patient discharged Performed By: #### L 500.2500, L100.0100 ####[facility] [address] [place], [address] eGFR Normal >60 [facility] Comment on above: Result Comment: Canc elled via OM: Order cancelled - Patient discharged Performed By: #### L 500.2500, L100.0100 ####[facility] [address] [place], [address] GAP Normal 5-15 [facility] Comment on above: Result Comment: Canc elled via OM: Order cancelled - Patient discharged Performed By: #### L 500.2500, L100.0100 ####[facility] [address] [place], [address] GLU Normal 70-99 [facility] Comment on above: Result Comment: Canc elled via OM: Order cancelled - Patient discharged Performed By: #### L 500.2500, L100.0100 ####[facility] [address] [place], [address] Potassium Normal 3.3-5.1 [facility] Comment on above: Result Comment: Canc elled via OM: Order cancelled - Patient discharged Performed By: #### L 500.2500, L100.0100 ####[facility] [address] [place], [address] Basic Metabolic Profile (BMP) Normal 133-145 [facility] Comment on above: Result Comment: Canc elled via OM: Order cancelled - Patient discharged Performed By: #### L 500.2500, L100.0100 ####[facility] [address] [place], [address] CBC W/Diff, Automatedon 06-0 -2024 Absolute Neut Normal 2.0-7.7 [facility] Comment on above: Result Comment: Canc elled via OM: Order cancelled - Patient discharged Performed By: #### L 500.2500, L100.0100 ####[facility] [address] [place], [address] HCT Normal 40-54 [facility] Comment on above: Result Comment: Canc elled via OM: Order cancelled - Patient discharged Performed By: #### L 500.2500, L100.0100 ####[facility] [address] [place], [address] HGB Normal 13.0-16.5 [facility] Comment on above: Result Comment: Canc elled via OM: Order cancelled - Patient discharged Performed By: #### L 500.2500, L100.0100 ####[facility] [address] [place], [address] MCH Normal 27.0-32.0 [facility] Comment on above: Result Comment: Canc elled via OM: Order cancelled - Patient discharged Performed By: #### L 500.2500, L100.0100 ####[facility] [address] [place], [address] MCHC Normal 32-36 [facility] Comment on above: Result Comment: Canc elled via OM: Order cancelled - Patient discharged Performed By: #### L 500.2500, L100.0100 ####[facility] [address] [place], [address] MCV Normal 80-94 [facility] Comment on above: Result Comment: Canc elled via OM: Order cancelled - Patient discharged Performed By: #### L 500.2500, L100.0100 ####[facility] [address] [place], [address] NEUT% Normal 47-70 [facility] Comment on above: Result Comment: Canc elled via OM: Order cancelled - Patient discharged Performed By: #### L 500.2500, L100.0100 ####[facility] [address] [place], [address] PLT Normal 150-450 [facility] Comment on above: Result Comment: Canc elled via OM: Order cancelled - Patient discharged Performed By: #### L 500.2500, L100.0100 ####[facility] [address] [place], [address] RBC Normal 4.6-6.2 [facility] Comment on above: Result Comment: Canc elled via OM: Order cancelled - Patient discharged Performed By: #### L 500.2500, L100.0100 ####[facility] [address] [place], [address] RDW CV Normal 11.6-14.6 [facility] Comment on above: Result Comment: Canc elled via OM: Order cancelled - Patient discharged Performed By: #### L 500.2500, L100.0100 ####[facility] [address] [place], [address] RDW SD Normal 35.1-43.9 [facility] Comment on above: Result Comment: Canc elled via OM: Order cancelled - Patient discharged Performed By: #### L 500.2500, L100.0100 ####[facility] [address] [place], [address] WBC Normal 4.4-11.0 [facility] Comment on above: Result Comment: Canc elled via OM: Order cancelled - Patient discharged Performed By: #### L 500.2500, L100.0100 ####[facility] [address] [place], [address] Basic Metabolic Profile (BMP )on 01-06-2025 BUN Normal 4-19 [facility] Comment on above: Result Comment: Canc elled via OM: Order cancelled - Patient discharged Performed By: #### L 100.0100, L500.2500 ####[facility] [address] [place], [address] BUN/CRE Normal 10-20 [facility] Comment on above: Result Comment: Canc elled via OM: Order cancelled - Patient discharged Performed By: #### L 100.0100, L500.2500 ####[facility] [address] [place], [address] Calcium Normal 7.6-11.0 [facility] Comment on above: Result Comment: Canc elled via OM: Order cancelled - Patient discharged Performed By: #### L 100.0100, L500.2500 ####[facility] [address] [place], [address] CL Normal 98-108 [facility] Comment on above: Result Comment: Canc elled via OM: Order cancelled - Patient discharged Performed By: #### L 100.0100, L500.2500 ####[facility] [address] [place], [address] CO2 Normal 21.0-32.0 [facility] Comment on above: Result Comment: Canc elled via OM: Order cancelled - Patient discharged Performed By: #### L 100.0100, L500.2500 ####[facility] [address] [place], [address] CREAT,SERUM Normal 0.70-1.20 [facility] Comment on above: Result Comment: Canc elled via OM: Order cancelled - Patient discharged Performed By: #### L 100.0100, L500.2500 ####[facility] [address] [place], [address] eGFR Normal >60 [facility] Comment on above: Result Comment: Canc elled via OM: Order cancelled - Patient discharged Performed By: #### L 100.0100, L500.2500 ####[facility] [address] [place], [address] GAP Normal 5-15 [facility] Comment on above: Result Comment: Canc elled via OM: Order cancelled - Patient discharged Performed By: #### L 100.0100, L500.2500 ####[facility] [address] [place], [address] GLU Normal 70-99 [facility] Comment on above: Result Comment: Canc elled via OM: Order cancelled - Patient discharged Performed By: #### L 100.0100, L500.2500 ####[facility] [address] [place], [address] Potassium Normal 3.3-5.1 [facility] Comment on above: Result Comment: Canc elled via OM: Order cancelled - Patient discharged Performed By: #### L 100.0100, L500.2500 ####[facility] [address] [place], [address] Basic Metabolic Profile (BMP) Normal 133-145 [facility] Comment on above: Result Comment: Canc elled via OM: Order cancelled - Patient discharged Performed By: #### L 100.0100, L500.2500 ####[facility] [address] [place], [address] CBC W/Diff, Automatedon 06-0 Absolute Neut Normal 2.0-7.7 [facility] Comment on above: Result Comment: Canc elled via OM: Order cancelled - Patient discharged Performed By: #### L 100.0100, L500.2500 ####[facility] [address] [place], [address] HCT Normal 40-54 [facility] Comment on above: Result Comment: Canc elled via OM: Order cancelled - Patient discharged Performed By: #### L 100.0100, L500.2500 ####[facility] [address] [place], [address] HGB Normal 13.0-16.5 [facility] Comment on above: Result Comment: Canc elled via OM: Order cancelled - Patient discharged Performed By: #### L 100.0100, L500.2500 ####[facility] [address] [place], [address] MCH Normal 27.0-32.0 [facility] Comment on above: Result Comment: Canc elled via OM: Order cancelled - Patient discharged Performed By: #### L 100.0100, L500.2500 ####[facility] [address] [place], [address] MCHC Normal 32-36 [facility] Comment on above: Result Comment: Canc elled via OM: Order cancelled - Patient discharged Performed By: #### L 100.0100, L500.2500 ####[facility] [address] [place], [address] MCV Normal 80-94 [facility] Comment on above: Result Comment: Canc elled via OM: Order cancelled - Patient discharged Performed By: #### L 100.0100, L500.2500 ####[facility] [address] [place], [address] NEUT% Normal 47-70 [facility] Comment on above: Result Comment: Canc elled via OM: Order cancelled - Patient discharged Performed By: #### L 100.0100, L500.2500 ####[facility] [address] [place], [address] PLT Normal 150-450 [facility] Comment on above: Result Comment: Canc elled via OM: Order cancelled - Patient discharged Performed By: #### L 100.0100, L500.2500 ####[facility] [address] [place], [address] RBC Normal 4.6-6.2 [facility] Comment on above: Result Comment: Canc elled via OM: Order cancelled - Patient discharged Performed By: #### L 100.0100, L500.2500 ####[facility] [address] [place], [address] RDW CV Normal 11.6-14.6 [facility] Comment on above: Result Comment: Canc elled via OM: Order cancelled - Patient discharged Performed By: #### L 100.0100, L500.2500 ####[facility] [address] [place], [address] RDW SD Normal 35.1-43.9 [facility] Comment on above: Result Comment: Canc elled via OM: Order cancelled - Patient discharged Performed By: #### L 100.0100, L500.2500 ####[facility] [address] [place], [address] WBC Normal 4.4-11.0 [facility] Comment on above: Result Comment: Canc elled via OM: Order cancelled - Patient discharged Performed By: #### L 100.0100, L500.2500 ####[facility] [address] [place], [address] Absolute lymphocyte countOrd ered By: Hill Acuña on 01-05-2025 Lymphocytes Auto (Unsp spec) [#/Vol] 0.94 10*3/uL 0.83-4.51 [facility] Anion gap in Serum or Plasma Ordered By: Hill Acuña on 01-05-2025 Anion gap [Moles/Vol] 9 mmol/L 5-15 [facility] Automated lymphocyte count a s percentage of total leukocytesOrdered By: Hill Acuña on 01-05-2025 Lymphocytes/100 WBC Auto (Unsp spec) 13.4 % Low 19-41 [facility] BUN/creatinine ratioOrdered By: Hill Acuña on 01-05-2025 Urea nitrogen/Creatinine [Mass ratio] 11.9 mg/mg 10- [facility] Basic Metabolic Profile (BMP )on 01-05-2025 BUN/CRE 11.9 RATIO Normal - [facility] Comment on above: Performed By: #### L 100.0100, L500.2500 ####[facility] [address] [place], [address] Calcium [Mass/Vol] 7.9 mg/dL Normal 7.6-11.[address] [facility] Comment on above: Performed By: #### L 100.0100, L500.2500 ####[facility] [address] [place], [address] Chloride [Moles/Vol] 101 mmol/L Normal 98-108 [facility] Comment on above: Performed By: #### L 100.0100, L500.2500 ####[facility] [address] [place], [address] CO2 [Moles/Vol] 18.5 mmol/L Low 21.0-32.0 [facility] Comment on above: Performed By: #### L 100.0100, L500.2500 ####[facility] [address] [place], [address] Creatinine [Mass/Vol] 0.95 mg/dL Normal 0.70-1.20 [facility] Comment on above: Performed By: #### L 100.0100, L500.2500 ####[facility] [address] [place], [address] ECRCL 95.07 ml/min Normal 50-250 [facility] Comment on above: Performed By: #### L 100.0100, L500.2500 ####[facility] [address] [place], [address] GAP 9 Normal 5-15 [facility] Comment on above: Performed By: #### L 100.0100, L500.2500 ####[facility] [address] [place], [address] GFR/1.73 sq M.predicted among non-blacks MDRD (S/P/Bld) [Vol rate/Area] 92 mL/min/{1.73_m2} Normal >60 [facility] Comment on above: Result Comment: mL/m in/1.73m2 CKD-EPI Creatinine Equation (2020) Performed By: #### L 100.0100, L500.2500 ####[facility] [address] [place], [address] Glucose [Mass/Vol] 356 mg/dL High 70-[address] [facility] Comment on above: Performed By: #### L 100.0100, L500.2500 ####[facility] [address] [place], [address] Potassium [Moles/Vol] 3.6 mmol/L Normal 3.3-5.1 [facility] Comment on above: Performed By: #### L 100.0100, L500.2500 ####[facility] [address] [place], [address] Sodium [Moles/Vol] 128 mmol/L Low 133-[address] [facility] Comment on above: Performed By: #### L 100.0100, L500.2500 ####[facility] [address] [place], [address] Urea nitrogen [Mass/Vol] 11 mg/dL Normal 4-19 [facility] Comment on above: Performed By: #### L 100.0100, L500.2500 ####[facility] [address] [place], [address] Basophil percentageOrdered B y: Hill Acuña on 01-05-2025 Basophils/100 WBC (Bld) 0.4 % 0-1 [facility] Bedside Glucoseon 01-05-2025 FINGERSTICK GLU 163 mg/dL High 74-106 [facility] Comment on above: Result Comment: BRISA GEMENT OF PATIENT CARE PER NURSING PROTOCOL Performed By: #### L 501.080 ####[facility] [address] [place], [address] FINGERSTICK GLU 191 mg/dL High 74-106 [facility] Comment on above: Result Comment: BRISA GEMENT OF PATIENT CARE PER NURSING PROTOCOL Performed By: #### L 501.080 ####[facility] [address] [place], [address] FINGERSTICK GLU 307 mg/dL High 74-106 [facility] Comment on above: Result Comment: BRISA GEMENT OF PATIENT CARE PER NURSING PROTOCOL Performed By: #### L 501.080 ####[facility] [address] [place], [address] CBC W/Diff, Automatedon --2024 Basophils/100 WBC (Bld) 0.4 % Normal 0-1 [facility] Comment on above: Performed By: #### L 100.0100, L500.2500 ####[facility] [address] [place], [address] Eosinophils/100 WBC (Bld) 5.1 % High 0-5 [facility] Comment on above: Performed By: #### L 100.0100, L500.2500 ####[facility] [address] [place], [address] Hematocrit (Bld) [Volume fraction] 22.3 % Low 40-54 [facility] Comment on above: Performed By: #### L 100.0100, L500.2500 ####[facility] [address] [place], [address] Hemoglobin (Bld) [Mass/Vol] 7.5 g/dL Low 13.0-16.5 [facility] Comment on above: Performed By: #### L 100.0100, L500.2500 ####[facility] [address] [place], [address] Lymphocytes/100 WBC (Bld) 13.4 % Low 19-41 [facility] Comment on above: Performed By: #### L 100.0100, L500.2500 ####[facility] [address] [place], [address] MCH (RBC) [Entitic mass] 29.1 pg Normal 27.0-32.0 [facility] Comment on above: Performed By: #### L 100.0100, L500.2500 ####[facility] [address] [place], [address] MCV (RBC) [Entitic vol] 86.4 fL Normal 80-94 [facility] Comment on above: Performed By: #### L 100.0100, L500.2500 ####[facility] [address] [place], [address] RBC (Bld) [#/Vol] 2.58 10*6/uL Low 4.6-6.2 [facility] Comment on above: Performed By: #### L 100.0100, L500.2500 ####[facility] [address] [place], [address] Carbon dioxide, total [Moles /volume] in Central venous bloodOrdered By: Hill Acuña on 01-05-2025 CO2 [Moles/Vol] 18.5 mmol/L Low 21.0-32.0 [facility] Chloride assayOrdered By: Kvng Acuña on 01-05-2025 Chloride [Moles/Vol] 101 mmol/L 98-[address] [facility] Eosinophil percentageOrdered By: Hill Acuña on 01-05-2025 Eosinophils/100 WBC (Bld) 5.1 % High 0-5 [facility] Erythrocyte distribution wid th ratioOrdered By: Hill Acuña on 01-05-2025 Erythrocyte distribution width (RBC) [Ratio] 16.4 % High 11.6-14.6 [facility] Erythrocyte distribution wid th standard deviationOrdered By: Hill Acuña on 01-05-2025 Erythrocyte distribution width (RBC) [Ratio] 51.8 fl High 35.1-43.9 [facility] Glomerular filtration rate ( GFR) estimation/1.73 sq m using serum, plasma, or whole bOrdered By: Hill Acuña on 01-05-2025 GFR/1.73 sq M.predicted among non-blacks MDRD (S/P/Bld) [Vol rate/Area] 92 mL/min/{1.73_m2} >60 [facility] deOrdered By: Hill Acuña on 01-05-2025 Glucose [Mass/Vol] 163 mg/dL High 74-[address] [facility] Glucose [Mass/Vol] 191 mg/dL High 74-[address] [facility] Hematocrit Auto (Bld) [Volum e fraction]Ordered By: Hill Acuña on 01-05-2025 Hematocrit (Bld) [Volume fraction] 22.3 % Low 40-54 [facility] Hemoglobin measurementOrdere d By: Hill Acuña on 01-05-2025 Hemoglobin (Bld) [Mass/Vol] 7.5 g/dL Low 13.0-16.5 [facility] Immature granulocytes/100 WB C Auto (Bld)Ordered By: Hill Acuña on 01-05-2025 Immature granulocytes/100 WBC (Bld) 0.400 % 0.0-0.9 [facility] MCV (mean corpuscular volume ) determinationOrdered By: Hill Acuña on 01-05-2025 MCV (RBC) [Entitic vol] 86.4 fL 80-94 [facility] Mean corpuscular hemoglobin (MCH) determinationOrdered By: Hill Acuña on 01-05-2025 MCH (RBC) [Entitic mass] 29.1 pg 27.0-32.0 [facility] Monocyte percentageOrdered B y: Hill Acuña on 01-05-2025 Monocytes/100 WBC (Bld) 11.6 % High 0-10 [facility] Neutrophil percentageOrdered By: Hill Acuña on 01-05-2025 Neutrophils/100 WBC (Bld) 69.1 % 47-70 [facility] Platelet countOrdered By: Kvng Acuña on 01-05-2025 Platelets (Bld) [#/Vol] 81 10*3/uL Low 150-450 [facility] Potassium measurement (mass/ volume)Ordered By: Hill Acuña on 01-05-2025 Potassium (Unsp spec) [Mass/Vol] 3.6 mmol/L 3.3-5.1 [facility] RBC Auto (Bld) [#/Vol]Ordere d By: Hill Acuña on 01-05-2025 RBC (Bld) [#/Vol] 2.58 10*6/uL Low 4.6-6.2 [facility] Serum creatinine measurement (mass/volume)Ordered By: Hill Acuña on 01-05-2025 Creatinine [Mass/Vol] 0.95 mg/dL 0.70-1.20 [facility] Serum glucose measurement (m ass/volume)Ordered By: Hill Acuña on 01-05-2025 Glucose [Mass/Vol] 356 mg/dL High 70-[address] [facility] Serum or plasma calcium roosevelt urement (mass/volume)Ordered By: Hill Acuña on 01-05-2025 Calcium [Mass/Vol] 7.9 mg/dL 7.6-11.[address] [facility] Serum or plasma urea nitroge n measurement (mass/volume)Ordered By: Hill Acuña on 01-05-2025 Urea nitrogen [Mass/Vol] 11 mg/dL 4-19 [facility] Sodium levelOrdered By: Paulino Acuña on 01-05-2025 Sodium [Moles/Vol] 128 mmol/L Low 133-[address] [facility] White blood cell (WBC) count Ordered By: Hill Acuña on 01-05-2025 WBC (Bld) [#/Vol] 7.0 10*3/uL 4.4-11.[address] [facility] Bilirubin, totalOrdered By: Hill Acuña on 01-04-2025 Bilirubin [Mass/Vol] 0.90 mg/dL 0.00-1.30 [facility] Blood manual differential co mment interpretation (narrative result)Ordered By: Hill Acuña on 01-04-2025 Manual differential comment Marco Antonio (Bld) [Interp] SCANNED [facility] Magnesium measurement (mass/ volume)Ordered By: Hill Acuña on 01-04-2025 Magnesium (Unsp spec) [Mass/Vol] 1.3 mg/dL Low 1.5-2.2 [facility] No Panel InformationOrdered By: Hill Acuña on 01-04-2025 54 U/L High <38 [facility] Serum globulin measurementOr dered By: Hill Acuña on 01-04-2025 Globulin (S) [Mass/Vol] 2.9 g/dL 2.2-4.2 [facility] Serum or plasma alanine thomas otransferase (ALT) measurementOrdered By: Hill Acuña on 01-04-2025 ALT [Catalytic activity/Vol] 26 U/L <47 [facility] Serum or plasma albumin roosevelt urement (mass/volume)Ordered By: Hill Acuña on 01-04-2025 Albumin [Mass/Vol] 2.4 g/dL Low 3.5-5.[address] [facility] Serum or plasma albumin/glob ulin mass ratioOrdered By: Hill Acuña on 01-04-2025 Albumin/Globulin [Mass ratio] 0.9 {ratio} 0.9-2.4 [facility] Serum or plasma alkaline kendrick sphatase measurementOrdered By: Hill Acuña on 01-04-2025 ALP [Catalytic activity/Vol] 171 U/L High 40-129 [facility] Total proteinOrdered By: Hugo Acuña on 01-04-2025 Protein [Mass/Vol] 5.3 g/dL Low 5.9-8.[address] [facility] Absolute lymphocyte countOrd ered By: Roddy Reeves on 01-02-2025 Lymphocytes Auto (Unsp spec) [#/Vol] 1.55 10*3/uL 0.83-4.51 [facility] Anion gap in Serum or Plasma Ordered By: Roddy Reeves on 01-02-2025 Anion gap [Moles/Vol] 17 mmol/L High 5-15 [facility] Automated lymphocyte count a s percentage of total leukocytesOrdered By: Roddy Reeves on 01-02-2025 Lymphocytes/100 WBC Auto (Unsp spec) 12.2 % Low 19-41 [facility] BUN/creatinine ratioOrdered By: Roddy Reeves on 01-02-2025 Urea nitrogen/Creatinine [Mass ratio] 12.9 mg/mg 10-20 [facility] Basophil percentageOrdered B y: Roddy Reeves on 01-02-2025 Basophils/100 WBC (Bld) 0.4 % 0-1 [facility] Bilirubin Test strip Ql (U)O rdered By: Roddy Reeves on 01-02-2025 Bilirubin Ql (U) Negative Negative [facility] Bilirubin, totalOrdered By: Roddy Reeves on 01-02-2025 Bilirubin [Mass/Vol] 0.90 mg/dL 0.00-1.30 [facility] Carbon dioxide, total [Moles /volume] in Central venous bloodOrdered By: Roddy Reeves on 01-02-2025 CO2 [Moles/Vol] 19.6 mmol/L Low 21.0-32.0 [facility] Chloride assayOrdered By: Catrachito Reeves on 01-02-2025 Chloride [Moles/Vol] 95 mmol/L Low 98-108 [facility] Eosinophil percentageOrdered By: Roddy Reeves on 01-02-2025 Eosinophils/100 WBC (Bld) 6.9 % High 0-5 [facility] Erythrocyte distribution wid th ratioOrdered By: Roddy Reeves on 01-02-2025 Erythrocyte distribution width (RBC) [Ratio] 16.4 % High 11.6-14.6 [facility] Erythrocyte distribution wid th standard deviationOrdered By: Roddy Reeves on 01-02-2025 Erythrocyte distribution width (RBC) [Ratio] 51.1 fl High 35.1-43.9 [facility] Glomerular filtration rate ( GFR) estimation/1.73 sq m using serum, plasma, or whole bOrdered By: Roddy Reeves on 01-02-2025 GFR/1.73 sq M.predicted among non-blacks MDRD (S/P/Bld) [Vol rate/Area] 19 mL/min/{1.73_m2} Low >60 [facility] Hematocrit Auto (Bld) [Volum e fraction]Ordered By: Roddy Reeves on 01-02-2025 Hematocrit (Bld) [Volume fraction] 28.0 % Low 40-54 [facility] Hemoglobin measurementOrdere d By: Roddy Reeves on 01-02-2025 Hemoglobin (Bld) [Mass/Vol] 9.5 g/dL Low 13.0-16.5 [facility] Immature granulocytes/100 WB C Auto (Bld)Ordered By: Roddy Reeves on 01-02-2025 Immature granulocytes/100 WBC (Bld) 0.600 % 0.0-0.9 [facility] Ketones Test strip Ql (U)Ord ered By: Roddy Reeves on 01-02-2025 Ketones Ql (U) 5 mg/dl High Negative [facility] MCV (mean corpuscular volume ) determinationOrdered By: Roddy Reeves on 01-02-2025 MCV (RBC) [Entitic vol] 87.2 fL 80-94 [facility] Magnesium measurement (mass/ volume)Ordered By: Roddy Reeves on 01-02-2025 Magnesium (Unsp spec) [Mass/Vol] 2.0 mg/dL 1.5-2.2 [facility] Mean corpuscular hemoglobin (MCH) determinationOrdered By: Roddy Reeves on 01-02-2025 MCH (RBC) [Entitic mass] 29.6 pg 27.0-32.0 [facility] Monocyte percentageOrdered B y: Roddy Reeves on 01-02-2025 Monocytes/100 WBC (Bld) 11.9 % High 0-10 [facility] Mucus LM Ql (Urine sed)Order ed By: Roddy Reeves on 01-02-2025 Mucus Ql (Urine sed) 0 SEEN /hpf [facility] Neutrophil percentageOrdered By: Roddy Reeves on 01-02-2025 Neutrophils/100 WBC (Bld) 68.0 % 47-70 [facility] Nitrite Test strip Ql (U)Ord ered By: Roddy Reeves on 01-02-2025 Nitrite Ql (U) Negative Negative [facility] No Panel InformationOrdered By: Roddy Reeves on 01-02-2025 37 U/L <38 [facility] Platelet countOrdered By: Catrachito Reeves on 01-02-2025 Platelets (Bld) [#/Vol] 171 10*3/uL 150-450 [facility] Potassium measurement (mass/ volume)Ordered By: Roddy Reeves on 01-02-2025 Potassium (Unsp spec) [Mass/Vol] 2.6 mmol/L Low 3.3-5.1 [facility] Protein Test strip Ql (U)Ord ered By: Roddy Reeves on 01-02-2025 Protein Ql (U) 100 mg/dl High Negative [facility] RBC Auto (Bld) [#/Vol]Ordere d By: Roddy Reeves on 01-02-2025 RBC (Bld) [#/Vol] 3.21 10*6/uL Low 4.6-6.2 [facility] Serum creatinine measurement (mass/volume)Ordered By: Roddy Reeves on 01-02-2025 Creatinine [Mass/Vol] 3.54 mg/dL High 0.70-1.20 [facility] Serum globulin measurementOr dered By: Roddy Reeves on 01-02-2025 Globulin (S) [Mass/Vol] 3.4 g/dL 2.2-4.2 [facility] Serum glucose measurement (m ass/volume)Ordered By: Roddy Reeves on 01-02-2025 Glucose [Mass/Vol] 164 mg/dL High 70-[address] [facility] Serum or plasma alanine thomas otransferase (ALT) measurementOrdered By: Roddy Reeves on 01-02-2025 ALT [Catalytic activity/Vol] 23 U/L <47 [facility] Serum or plasma albumin roosevelt urement (mass/volume)Ordered By: Roddy Reeves on 01-02-2025 Albumin [Mass/Vol] 2.8 g/dL Low 3.5-5.[address] [facility] Serum or plasma albumin/glob ulin mass ratioOrdered By: Roddy Reeves on 01-02-2025 Albumin/Globulin [Mass ratio] 0.8 {ratio} Low 0.9-2.4 [facility] Serum or plasma alkaline kendrick sphatase measurementOrdered By: Roddy Reeves on 01-02-2025 ALP [Catalytic activity/Vol] 191 U/L High 40-129 [facility] Serum or plasma calcium roosevelt urement (mass/volume)Ordered By: Roddy Reeves on 01-02-2025 Calcium [Mass/Vol] 9.0 mg/dL 7.6-11.[address] [facility] Serum or plasma ethanol roosevelt urement (mass/volume)Ordered By: Roddy Reeves on 01-02-2025 Ethanol [Mass/Vol] mg/dL <10.[address] [facility] Serum or plasma urea nitroge n measurement (mass/volume)Ordered By: Roddy Reeves on 01-02-2025 Urea nitrogen [Mass/Vol] 46 mg/dL High 4-19 [facility] Sodium levelOrdered By: Valentín Reeevs on 01-02-2025 Sodium [Moles/Vol] 132 mmol/L Low 133-[address] [facility] Squamous epithelial cells de tection in urine sediment by light microscopyOrdered By: Roddy Reeves on 01-02-2025 Epithelial cells.squamous LM Ql (Urine sed) 0 SEEN /hpf 0-5 [facility] Total proteinOrdered By: Zoila Reeves on 01-02-2025 Protein [Mass/Vol] 6.1 g/dL 5.9-8.[address] [facility] Urine clarityOrdered By: Zoila Reeves on 01-02-2025 Clarity (U) Turbid Clear [facility] Urine color determinationOrd ered By: Roddy Reeves on 01-02-2025 Color (U) Red Yellow [facility] Urine cultureOrdered By: Zoila Reeves on 01-02-2025 Bacteria identified Cx Nom (U) Yeast, not Mary albicans Abnormal [facility] Urine glucose detectionOrder ed By: Roddy Reeves on 01-02-2025 Glucose Ql (U) Normal mg/dl Normal [facility] Urine leukocyte esterase det ection by dipstickOrdered By: Roddy Reeves on 01-02-2025 Leukocyte esterase Test strip Ql (U) 500 /ul High Negative [facility] Urine pHOrdered By: Roddy gonzalez on 01-02-2025 pH (U) 6.0 [pH] 5.0 - 8.0 [facility] Urine sediment bacteria coun t by microscopy (number/high power field)Ordered By: Roddy Reeves on 01-02-2025 Bacteria LM.HPF (Urine sed) [#/Area] 3 /[HPF] None Seen [facility] Urine specific gravity measu rementOrdered By: Roddy Reeves on 01-02-2025 Specific gravity (U) [Rel density] 1.015 1.002-1.030 [facility] Urine urobilinogen measureme ntOrdered By: Roddy Reeves on 01-02-2025 Urobilinogen Ql (U) Normal mg/dl Normal [facility] Venous blood ammonia measure mentOrdered By: Roddy Reeves on 01-02-2025 Ammonia (P) [Moles/Vol] 40.4 umol/L 16-60 [facility] White blood cell (WBC) count Ordered By: Roddy Reeves on 01-02-2025 WBC (Bld) [#/Vol] 12.7 10*3/uL High 4.4-11.0 [facility] White blood cell countOrdere d By: Roddy Reeves on 01-02-2025 White blood cell count 25-50 SEEN /hpf 0-5 [facility] Absolute lymphocyte countOrd ered By: Mina Blood on 12-30-2024 Lymphocytes Auto (Unsp spec) [#/Vol] 1.31 10*3/uL 0.83-4.51 [facility] Anion gap in Serum or Plasma Ordered By: Mina Blood on 12-30-2024 Anion gap [Moles/Vol] 15 mmol/L 5-15 [facility] Automated lymphocyte count a s percentage of total leukocytesOrdered By: Mina Blood on 12-30-2024 Lymphocytes/100 WBC Auto (Unsp spec) 14.0 % Low 19-41 [facility] BUN/creatinine ratioOrdered By: Mina Blood on 12-30-2024 Urea nitrogen/Creatinine [Mass ratio] 14.1 mg/mg 10-20 [facility] Basophil percentageOrdered B y: Mina Blood on 12-30-2024 Basophils/100 WBC (Bld) 0.4 % 0-1 [facility] Bilirubin Test strip Ql (U)O rdered By: Mina Blood on 12-30-2024 Bilirubin Ql (U) Negative Negative [facility] Carbon dioxide, total [Moles /volume] in Central venous bloodOrdered By: Mina Blood on 12-30-2024 CO2 [Moles/Vol] 22.1 mmol/L 21.0-32.0 [facility] Chloride assayOrdered By: Marcella Blood on 12-30-2024 Chloride [Moles/Vol] 91 mmol/L Low 98-108 [facility] Eosinophil percentageOrdered By: Mina Blood on 12-30-2024 Eosinophils/100 WBC (Bld) 6.2 % High 0-5 [facility] Erythrocyte distribution wid th ratioOrdered By: Mina Blood on 12-30-2024 Erythrocyte distribution width (RBC) [Ratio] 16.1 % High 11.6-14.6 [facility] Erythrocyte distribution wid th standard deviationOrdered By: Mina Blood on 12-30-2024 Erythrocyte distribution width (RBC) [Ratio] 50.9 fl High 35.1-43.9 [facility] Glomerular filtration rate ( GFR) estimation/1.73 sq m using serum, plasma, or whole bOrdered By: Mina Blood on 12-30-2024 GFR/1.73 sq M.predicted among non-blacks MDRD (S/P/Bld) [Vol rate/Area] 37 mL/min/{1.73_m2} Low >60 [facility] deOrdered By: Mina Blood on 12-30-2024 Glucose [Mass/Vol] 453 mg/dL High 74-[address] [facility] Hematocrit Auto (Bld) [Volum e fraction]Ordered By: Mina Blood on 12-30-2024 Hematocrit (Bld) [Volume fraction] 25.8 % Low 40-54 [facility] Hemoglobin measurementOrdere d By: Mina Blood on 12-30-2024 Hemoglobin (Bld) [Mass/Vol] 8.7 g/dL Low 13.0-16.5 [facility] Immature granulocytes/100 WB C Auto (Bld)Ordered By: Mina Blood on 12-30-2024 Immature granulocytes/100 WBC (Bld) 0.600 % 0.0-0.9 [facility] Ketones Test strip Ql (U)Ord ered By: Mina Blood on 12-30-2024 Ketones Ql (U) Negative Negative [facility] MCV (mean corpuscular volume ) determinationOrdered By: Mina Blood on 12-30-2024 MCV (RBC) [Entitic vol] 88.1 fL 80-94 [facility] Magnesium measurement (mass/ volume)Ordered By: Mina Blood on 12-30-2024 Magnesium (Unsp spec) [Mass/Vol] 1.3 mg/dL Low 1.5-2.2 [facility] Mean corpuscular hemoglobin (MCH) determinationOrdered By: Mina Blood on 12-30-2024 MCH (RBC) [Entitic mass] 29.7 pg 27.0-32.0 [facility] Monocyte percentageOrdered B y: Mina Blood on 12-30-2024 Monocytes/100 WBC (Bld) 9.1 % 0-10 [facility] Mucus LM Ql (Urine sed)Order ed By: Mina Blood on 12-30-2024 Mucus Ql (Urine sed) 0 SEEN /hpf [facility] Neutrophil percentageOrdered By: Mina Blood on 12-30-2024 Neutrophils/100 WBC (Bld) 69.7 % 47-70 [facility] Nitrite Test strip Ql (U)Ord ered By: Mina Blood on 12-30-2024 Nitrite Ql (U) Negative Negative [facility] Platelet countOrdered By: Marcella Blood on 12-30-2024 Platelets (Bld) [#/Vol] 131 10*3/uL Low 150-450 [facility] Potassium measurement (mass/ volume)Ordered By: Mina Blood on 12-30-2024 Potassium (Unsp spec) [Mass/Vol] 3.2 mmol/L Low 3.3-5.1 [facility] Protein Test strip Ql (U)Ord ered By: Mina Blood on 12-30-2024 Protein Ql (U) 100 mg/dl High Negative [facility] RBC Auto (Bld) [#/Vol]Ordere d By: Mina Blood on 05-29-2025 RBC (Bld) [#/Vol] 2.93 10*6/uL Low 4.6-6.2 [facility] Serum creatinine measurement (mass/volume)Ordered By: Mina Blood on 12-30-2024 Creatinine [Mass/Vol] 2.05 mg/dL High 0.70-1.20 [facility] Serum glucose measurement (m ass/volume)Ordered By: Mina Blood on 12-30-2024 Glucose [Mass/Vol] 608 mg/dL High 70-[address] [facility] Serum or plasma calcium roosevelt urement (mass/volume)Ordered By: Mina Blood on 12-30-2024 Calcium [Mass/Vol] 9.1 mg/dL 7.6-11.[address] [facility] Serum or plasma urea nitroge n measurement (mass/volume)Ordered By: Mina Blood on 12-30-2024 Urea nitrogen [Mass/Vol] 29 mg/dL High 4-19 [facility] Sodium levelOrdered By: Magen Blood on 12-30-2024 Sodium [Moles/Vol] 128 mmol/L Low 133-[address] [facility] Squamous epithelial cells de tection in urine sediment by light microscopyOrdered By: Mina Blood on 12-30-2024 Epithelial cells.squamous LM Ql (Urine sed) 0-5 SEEN /hpf 0-5 [facility] Transitional cells detection in urine sediment by light microscopyOrdered By: Mina Blood on 12-30-2024 Transitional cells LM Ql (Urine sed) 0-5 SEEN /hpf 0-5 [facility] Troponin T.cardiac [Mass/vol ume] in Serum or Plasma by High sensitivity methodOrdered By: Mina Blood on 12-30-2024 Troponin T.cardiac High sensitivity method [Mass/Vol] 20 ng/L <22 [facility] Troponin T.cardiac High sensitivity method [Mass/Vol] 19 ng/L <22 [facility] Urine clarityOrdered By: Ever Blood on 12-30-2024 Clarity (U) Cloudy Clear [facility] Urine color determinationOrd ered By: Mina Blood on 12-30-2024 Color (U) Lexis Yellow [facility] Urine cultureOrdered By: Ever Blood on 12-30-2024 Bacteria identified Cx Nom (U) GPC Poss Enterococcus sp Abnormal [facility] Bacteria identified Cx Nom (U) Positive Abnormal [facility] Urine glucose detectionOrder ed By: Mina Blood on 12-30-2024 Glucose Ql (U) 1000 mg/dl High Normal [facility] Urine leukocyte esterase det ection by dipstickOrdered By: Mina Blood on 12-30-2024 Leukocyte esterase Test strip Ql (U) 500 /ul High Negative [facility] Urine pHOrdered By: Mina ferrer on 12-30-2024 pH (U) 6.5 [pH] 5.0 - 8.0 [facility] Urine sediment bacteria coun t by microscopy (number/high power field)Ordered By: Mina Blood on 12-30-2024 Bacteria LM.HPF (Urine sed) [#/Area] 1 /[HPF] None Seen [facility] Urine specific gravity measu rementOrdered By: Mina Blood on 12-30-2024 Specific gravity (U) [Rel density] 1.010 1.002-1.030 [facility] Urine urobilinogen measureme ntOrdered By: Mina Blood on 12-30-2024 Urobilinogen Ql (U) Normal mg/dl Normal [facility] White blood cell (WBC) count Ordered By: Mina Blood on 12-30-2024 WBC (Bld) [#/Vol] 9.4 10*3/uL 4.4-11.[address] [facility] White blood cell countOrdere d By: Mina Blood on 12-30-2024 White blood cell count >100 SEEN /hpf 0-5 [facility] Absolute lymphocyte countOrd ered By: Boone Carvajal on 12-26-2024 Lymphocytes Auto (Unsp spec) [#/Vol] 1.69 10*3/uL 0.83-4.51 [facility] Activated partial thrombopla stin time (aPTT) in platelet poor plasma by coagulation aOrdered By: Boone Carvajal on 12-26-2024 aPTT Coag (PPP) [Time] 36.3 s High 24.1-36.2 [facility] Anion gap in Serum or Plasma Ordered By: Boone Carvajal on 05-25-2025 Anion gap [Moles/Vol] 14 mmol/L 5-15 [facility] Automated lymphocyte count a s percentage of total leukocytesOrdered By: Boone Carvajal on 12-26-2024 Lymphocytes/100 WBC Auto (Unsp spec) 15.3 % Low 19-41 [facility] BUN/creatinine ratioOrdered By: Boone Carvajal on 12-26-2024 Urea nitrogen/Creatinine [Mass ratio] 10.3 mg/mg 10-20 [facility] Basophil percentageOrdered B y: Boone Carvajal on 12-26-2024 Basophils/100 WBC (Bld) 0.5 % 0-1 [facility] Beta-hydroxybutyrateOrdered By: Boone Carvajal on 12-26-2024 Beta hydroxybutyrate [Mass/Vol] 0.1 mmol/L 0.0-0.3 [facility] Bilirubin Test strip Ql (U)O rdered By: Boone Carvajal on 12-26-2024 Bilirubin Ql (U) Negative Negative [facility] Bilirubin, totalOrdered By: Boone Carvajal on 12-26-2024 Bilirubin [Mass/Vol] 1.04 mg/dL 0.00-1.30 [facility] Carbon dioxide, total [Moles /volume] in Central venous bloodOrdered By: Boone Carvajal on 12-26-2024 CO2 [Moles/Vol] 20.4 mmol/L Low 21.0-32.0 [facility] Chloride assayOrdered By: Hunter Carvajal on 12-26-2024 Chloride [Moles/Vol] 100 mmol/L 98-108 [facility] Eosinophil percentageOrdered By: Boone Carvajal on 12-26-2024 Eosinophils/100 WBC (Bld) 5.8 % High 0-5 [facility] Erythrocyte distribution wid th ratioOrdered By: Boone Carvajal on 12-26-2024 Erythrocyte distribution width (RBC) [Ratio] 16.3 % High 11.6-14.6 [facility] Erythrocyte distribution wid th standard deviationOrdered By: Boone Carvajal on 12-26-2024 Erythrocyte distribution width (RBC) [Ratio] 54.4 fl High 35.1-43.9 [facility] Glomerular filtration rate ( GFR) estimation/1.73 sq m using serum, plasma, or whole bOrdered By: Boone Carvajal on 12-26-2024 GFR/1.73 sq M.predicted among non-blacks MDRD (S/P/Bld) [Vol rate/Area] 30 mL/min/{1.73_m2} Low >60 [facility] Hematocrit Auto (Bld) [Volum e fraction]Ordered By: Boone Carvajal on 12-26-2024 Hematocrit (Bld) [Volume fraction] 29.6 % Low 40-54 [facility] Hemoglobin measurementOrdere d By: Boone Carvajal on 12-26-2024 Hemoglobin (Bld) [Mass/Vol] 9.6 g/dL Low 13.0-16.5 [facility] Immature granulocytes/100 WB C Auto (Bld)Ordered By: Boone Carvajal on 12-26-2024 Immature granulocytes/100 WBC (Bld) 0.500 % 0.0-0.9 [facility] Ketones Test strip Ql (U)Ord ered By: Boone Carvajal on 12-26-2024 Ketones Ql (U) 5 mg/dl High Negative [facility] MCV (mean corpuscular volume ) determinationOrdered By: Boone Carvajal on 12-26-2024 MCV (RBC) [Entitic vol] 90.8 fL 80-94 [facility] Mean corpuscular hemoglobin (MCH) determinationOrdered By: Boone Carvajal on 12-26-2024 MCH (RBC) [Entitic mass] 29.4 pg 27.0-32.0 [facility] Monocyte percentageOrdered B y: Boone Carvajal on 12-26-2024 Monocytes/100 WBC (Bld) 7.4 % 0-10 [facility] Mucus LM Ql (Urine sed)Order ed By: Boone Carvajal on 12-26-2024 Mucus Ql (Urine sed) 0 SEEN /hpf [facility] Neutrophil percentageOrdered By: Boone Carvajal on 12-26-2024 Neutrophils/100 WBC (Bld) 70.5 % High 47-70 [facility] Nitrite Test strip Ql (U)Ord ered By: Boone Carvajal on 12-26-2024 Nitrite Ql (U) Negative Negative [facility] No Panel InformationOrdered By: Boone Carvajal on 12-26-2024 58 U/L High <38 [facility] Platelet countOrdered By: Hunter Carvajal on 12-26-2024 Platelets (Bld) [#/Vol] 139 10*3/uL Low 150-450 [facility] Potassium measurement (mass/ volume)Ordered By: Boone Carvajal on 12-26-2024 Potassium (Unsp spec) [Mass/Vol] 3.5 mmol/L 3.3-5.1 [facility] Protein Test strip Ql (U)Ord ered By: Boone Carvajal on 12-26-2024 Protein Ql (U) 500 mg/dl High Negative [facility] Prothrombin timeOrdered By: Boone Carvajal on 12-26-2024 PT Coag (PPP) [Time] 18.5 s High 11.7-14.9 [facility] RBC Auto (Bld) [#/Vol]Ordere d By: Boone Carvajal on 12-26-2024 RBC (Bld) [#/Vol] 3.26 10*6/uL Low 4.6-6.2 [facility] Serum creatinine measurement (mass/volume)Ordered By: Boone Carvajal on 12-26-2024 Creatinine [Mass/Vol] 2.42 mg/dL High 0.70-1.20 [facility] Serum globulin measurementOr dered By: Boone Carvajal on 12-26-2024 Globulin (S) [Mass/Vol] 3.5 g/dL 2.2-4.2 [facility] Serum glucose measurement (m ass/volume)Ordered By: Boone Carvajal on 12-26-2024 Glucose [Mass/Vol] 386 mg/dL High 70-[address] [facility] Serum or plasma alanine thomas otransferase (ALT) measurementOrdered By: Boone Carvajal on 12-26-2024 ALT [Catalytic activity/Vol] 27 U/L <47 [facility] Serum or plasma albumin roosevelt urement (mass/volume)Ordered By: Boone Carvajal on 12-26-2024 Albumin [Mass/Vol] 2.8 g/dL Low 3.5-5.[address] [facility] Serum or plasma albumin/glob ulin mass ratioOrdered By: Boone Carvajal on 12-26-2024 Albumin/Globulin [Mass ratio] 0.8 {ratio} Low 0.9-2.4 [facility] Serum or plasma alkaline kendrick sphatase measurementOrdered By: Boone Carvajal on 12-26-2024 ALP [Catalytic activity/Vol] 207 U/L High 40-129 [facility] Serum or plasma calcium roosevelt urement (mass/volume)Ordered By: Boone Carvajal on 12-26-2024 Calcium [Mass/Vol] 8.9 mg/dL 7.6-11.[address] [facility] Serum or plasma urea nitroge n measurement (mass/volume)Ordered By: Boone Carvajal on 12-26-2024 Urea nitrogen [Mass/Vol] 25 mg/dL High 4-19 [facility] Sodium levelOrdered By: Boone Carvajal on 12-26-2024 Sodium [Moles/Vol] 135 mmol/L 133-[address] [facility] Squamous epithelial cells de tection in urine sediment by light microscopyOrdered By: Boone Carvajal on 12-26-2024 Epithelial cells.squamous LM Ql (Urine sed) 0 SEEN /hpf 0-5 [facility] Total proteinOrdered By: Juanita Carvajal on 12-26-2024 Protein [Mass/Vol] 6.3 g/dL 5.9-8.[address] [facility] Urine clarityOrdered By: Juanita Carvajal on 12-26-2024 Clarity (U) Cloudy Clear [facility] Urine color determinationOrd ered By: Boone Carvajal on 12-26-2024 Color (U) Lexis Yellow [facility] Urine cultureOrdered By: Juanita Carvajal on 12-26-2024 Bacteria identified Cx Nom (U) Enterococcus faecalis Abnormal [facility] Bacteria identified Cx Nom (U) GNR lactose undercoater Abnormal [facility] Urine glucose detectionOrder ed By: Boone Carvajal on 12-26-2024 Glucose Ql (U) Normal mg/dl Normal [facility] Urine leukocyte esterase det ection by dipstickOrdered By: Boone Carvajal on 12-26-2024 Leukocyte esterase Test strip Ql (U) 500 /ul High Negative [facility] Urine pHOrdered By: Boone romo on 12-26-2024 pH (U) 6.0 [pH] 5.0 - 8.0 [facility] Urine sediment bacteria coun t by microscopy (number/high power field)Ordered By: Boone Carvajal on 12-26-2024 Bacteria LM.HPF (Urine sed) [#/Area] 0 /[HPF] None Seen [facility] Urine specific gravity measu rementOrdered By: Boone Carvajal on 12-26-2024 Specific gravity (U) [Rel density] 1.015 1.002-1.030 [facility] Urine urobilinogen measureme ntOrdered By: Boone Carvajal on 12-26-2024 Urobilinogen Ql (U) Normal mg/dl Normal [facility] Venous blood ammonia measure mentOrdered By: Boone Carvajal on 12-26-2024 Ammonia (P) [Moles/Vol] 114.0 umol/L High 16-60 [facility] White blood cell (WBC) count Ordered By: Boone Carvajal on 12-26-2024 WBC (Bld) [#/Vol] 11.0 10*3/uL 4.4-11.0 [facility] White blood cell countOrdere d By: Boone Carvajal on 12-26-2024 White blood cell count 25-50 SEEN /hpf 0-5 [facility] Absolute lymphocyte countOrd ered By: Josy Elias on 12-07-2024 Lymphocytes Auto (Unsp spec) [#/Vol] 1.71 10*3/uL 0.83-4.51 [facility] Anion gap in Serum or Plasma Ordered By: Josy Elias on 12-07-2024 Anion gap [Moles/Vol] 12 mmol/L 5-15 [facility] Automated lymphocyte count a s percentage of total leukocytesOrdered By: Josy Elias on 12-07-2024 Lymphocytes/100 WBC Auto (Unsp spec) 18.4 % Low 19-41 [facility] BUN/creatinine ratioOrdered By: Josy Elias on 12-07-2024 Urea nitrogen/Creatinine [Mass ratio] 10.0 mg/mg 10-20 [facility] Basophil percentageOrdered B y: Josy Elias on 12-07-2024 Basophils/100 WBC (Bld) 0.6 % 0-1 [facility] Bilirubin, totalOrdered By: Josy Elias on 12-07-2024 Bilirubin [Mass/Vol] 1.21 mg/dL 0.00-1.30 [facility] CNPTOUTREACHon 12-07-2024 CNPTOUTREACH Normal [facility] Carbon dioxide, total [Moles /volume] in Central venous bloodOrdered By: Josy Elias on 12-07-2024 CO2 [Moles/Vol] 20.0 mmol/L Low 21.0-32.0 [facility] Chloride assayOrdered By: Monica Elias on 12-07-2024 Chloride [Moles/Vol] 103 mmol/L 98-108 [facility] Eosinophil percentageOrdered By: Josy Elias on 12-07-2024 Eosinophils/100 WBC (Bld) 5.1 % High 0-5 [facility] Erythrocyte distribution wid th ratioOrdered By: Josy Elias on 12-07-2024 Erythrocyte distribution width (RBC) [Ratio] 16.9 % High 11.6-14.6 [facility] Erythrocyte distribution wid th standard deviationOrdered By: Josy Elias on 12-07-2024 Erythrocyte distribution width (RBC) [Ratio] 57.4 fl High 35.1-43.9 [facility] Gamma glutamyl transferase ( GGT) measurementOrdered By: Josy Elias on 12-07-2024 Amylase [Catalytic activity/Vol] 103 U/L High 0-65 [facility] Glomerular filtration rate ( GFR) estimation/1.73 sq m using serum, plasma, or whole bOrdered By: Josy Elias on 12-07-2024 GFR/1.73 sq M.predicted among non-blacks MDRD (S/P/Bld) [Vol rate/Area] 44 mL/min/{1.73_m2} Low >60 [facility] Hematocrit Auto (Bld) [Volum e fraction]Ordered By: Josy Elias on 12-07-2024 Hematocrit (Bld) [Volume fraction] 26.2 % Low 40-54 [facility] Hemoglobin A1c percentageOrd ered By: Josy Elias on 12-07-2024 HbA1c (Bld) [Mass fraction] 7.2 % High <5.7 [facility] Hemoglobin measurementOrdere d By: Josy Elias on 12-07-2024 Hemoglobin (Bld) [Mass/Vol] 8.5 g/dL Low 13.0-16.5 [facility] Immature granulocytes/100 WB C Auto (Bld)Ordered By: Josy Elias on 12-07-2024 Immature granulocytes/100 WBC (Bld) 0.300 % 0.0-0.9 [facility] MCV (mean corpuscular volume ) determinationOrdered By: Josy Elias on 12-07-2024 MCV (RBC) [Entitic vol] 93.2 fL 80-94 [facility] Mean corpuscular hemoglobin (MCH) determinationOrdered By: Josy Elias on 12-07-2024 MCH (RBC) [Entitic mass] 30.2 pg 27.0-32.0 [facility] Monocyte percentageOrdered B y: Josy Elias on 12-07-2024 Monocytes/100 WBC (Bld) 12.1 % High 0-10 [facility] Neutrophil percentageOrdered By: Josy Elias on 12-07-2024 Neutrophils/100 WBC (Bld) 63.5 % 47-70 [facility] No Panel InformationOrdered By: Josy Elias on 12-07-2024 37 U/L <38 [facility] Platelet countOrdered By: Monica Elias on 12-07-2024 Platelets (Bld) [#/Vol] 145 10*3/uL Low 150-450 [facility] Potassium measurement (mass/ volume)Ordered By: Josy Elias on 12-07-2024 Potassium (Unsp spec) [Mass/Vol] 3.3 mmol/L 3.3-5.1 [facility] RBC Auto (Bld) [#/Vol]Ordere d By: Josy Elias on 12-07-2024 RBC (Bld) [#/Vol] 2.81 10*6/uL Low 4.6-6.2 [facility] Serum creatinine measurement (mass/volume)Ordered By: Josy Elias on 12-07-2024 Creatinine [Mass/Vol] 1.78 mg/dL High 0.70-1.20 [facility] Serum globulin measurementOr dered By: Josy Elias on 12-07-2024 Globulin (S) [Mass/Vol] 2.9 g/dL 2.2-4.2 [facility] Serum glucose measurement (m ass/volume)Ordered By: Josy Elias on 12-07-2024 Glucose [Mass/Vol] 185 mg/dL High 70-[address] [facility] Serum or plasma alanine thomas otransferase (ALT) measurementOrdered By: Josy Elias on 12-07-2024 ALT [Catalytic activity/Vol] 24 U/L <47 [facility] Serum or plasma albumin roosevelt urement (mass/volume)Ordered By: Josy lEias on 12-07-2024 Albumin [Mass/Vol] 2.6 g/dL Low 3.5-5.[address] [facility] Serum or plasma albumin/glob ulin mass ratioOrdered By: Josy Elias on 12-07-2024 Albumin/Globulin [Mass ratio] 0.9 {ratio} 0.9-2.4 [facility] Serum or plasma alkaline kendrick sphatase measurementOrdered By: Josy Elias on 12-07-2024 ALP [Catalytic activity/Vol] 241 U/L High 40-129 [facility] Serum or plasma calcium roosevelt urement (mass/volume)Ordered By: Josy Elias on 12-07-2024 Calcium [Mass/Vol] 8.2 mg/dL 7.6-11.[address] [facility] Serum or plasma urea nitroge n measurement (mass/volume)Ordered By: Josy Elias on 12-07-2024 Urea nitrogen [Mass/Vol] 18 mg/dL 4-19 [facility] Sodium levelOrdered By: Terrance Elias on 12-07-2024 Sodium [Moles/Vol] 136 mmol/L 133-[address] [facility] Total proteinOrdered By: Chinedu Elias on 12-07-2024 Protein [Mass/Vol] 5.5 g/dL Low 5.9-8.[address] [facility] White blood cell (WBC) count Ordered By: Josy Elias on 12-07-2024 WBC (Bld) [#/Vol] 9.3 10*3/uL 4.4-11.[address] [facility] Absolute lymphocyte countOrd ered By: Hill Acuña on 12-02-2024 Lymphocytes Auto (Unsp spec) [#/Vol] 0.92 10*3/uL 0.83-4.51 [facility] Anion gap in Serum or Plasma Ordered By: Hill Acuña on 12-02-2024 Anion gap [Moles/Vol] 7 mmol/L 5-15 [facility] Automated lymphocyte count a s percentage of total leukocytesOrdered By: Hill Acuña on 12-02-2024 Lymphocytes/100 WBC Auto (Unsp spec) 15.7 % Low 19-41 [facility] BUN/creatinine ratioOrdered By: Hill Acuña on 12-02-2024 Urea nitrogen/Creatinine [Mass ratio] 8.1 mg/mg Low 10-20 [facility] Basophil percentageOrdered B y: Hill Acuña on 12-02-2024 Basophils/100 WBC (Bld) 0.5 % 0-1 [place] Bilirubin, totalOrdered By: Hill Acuña on 12-02-2024 Bilirubin [Mass/Vol] 1.07 mg/dL 0.00-1.30 [facility] Carbon dioxide, total [Moles /volume] in Central venous bloodOrdered By: Hill Acuña on 12-02-2024 CO2 [Moles/Vol] 21.0 mmol/L 21.0-32.0 [facility] Chloride assayOrdered By: Kvng Acuña on 12-02-2024 Chloride [Moles/Vol] 104 mmol/L 98-108 [facility] Eosinophil percentageOrdered By: Hill Acuña on 12-02-2024 Eosinophils/100 WBC (Bld) 3.6 % 0-5 [facility] Erythrocyte distribution wid th ratioOrdered By: Hill Acuña on 12-02-2024 Erythrocyte distribution width (RBC) [Ratio] 16.2 % High 11.6-14.6 [facility] Erythrocyte distribution wid th standard deviationOrdered By: Hill Acuña on 12-02-2024 Erythrocyte distribution width (RBC) [Ratio] 53.0 fl High 35.1-43.9 [facility] Glomerular filtration rate ( GFR) estimation/1.73 sq m using serum, plasma, or whole bOrdered By: Hill Acuña on 12-02-2024 GFR/1.73 sq M.predicted among non-blacks MDRD (S/P/Bld) [Vol rate/Area] 98 mL/min/{1.73_m2} >60 [facility] Gl[facility] measurement [facility] deOrdered By: Hill Acuña on 12-02-2024 Glucose [Mass/Vol] 259 mg/dL High 74-106 [facility] Hematocrit Auto (Bld) [Volum e fraction]Ordered By: Hill Acuña on 12-02-2024 Hematocrit (Bld) [Volume fraction] 21.9 % Low 40-54 [facility] Hemoglobin measurementOrdere d By: Hill Acuña on 12-02-2024 Hemoglobin (Bld) [Mass/Vol] 7.2 g/dL Low 13.0-16.5 [facility] Immature granulocytes/100 WB C Auto (Bld)Ordered By: Hill Acuña on 12-02-2024 Immature granulocytes/100 WBC (Bld) 0.500 % 0.0-0.9 [facility] MCV (mean corpuscular volume ) determinationOrdered By: Hill Acuña on 12-02-2024 MCV (RBC) [Entitic vol] 89.8 fL 80-94 [facility] Magnesium measurement (mass/ volume)Ordered By: Hill Acuña on 12-02-2024 Magnesium (Unsp spec) [Mass/Vol] 1.6 mg/dL 1.5-2.2 [facility] Mean corpuscular hemoglobin (MCH) determinationOrdered By: Hill Acuña on 12-02-2024 MCH (RBC) [Entitic mass] 29.5 pg 27.0-32.0 [facility] Monocyte percentageOrdered B y: Hill Acuña on 12-02-2024 Monocytes/100 WBC (Bld) 13.3 % High 0-10 [facility] Neutrophil percentageOrdered By: Hill Acuña on 12-02-2024 Neutrophils/100 WBC (Bld) 66.4 % 47-70 [facility] No Panel InformationOrdered By: Hill Acuña on 12-02-2024 58 U/L High <38 [facility] Platelet countOrdered By: Kvng Acuña on 12-02-2024 Platelets (Bld) [#/Vol] 100 10*3/uL Low 150-450 [facility] Potassium measurement (mass/ volume)Ordered By: Hill Acuña on 12-02-2024 Potassium (Unsp spec) [Mass/Vol] 3.8 mmol/L 3.3-5.1 [facility] RBC Auto (Bld) [#/Vol]Ordere d By: Hill Acuña on 12-02-2024 RBC (Bld) [#/Vol] 2.44 10*6/uL Low 4.6-6.2 [facility] Serum creatinine measurement (mass/volume)Ordered By: Hill Acuña on 12-02-2024 Creatinine [Mass/Vol] 0.90 mg/dL 0.70-1.20 [facility] Serum globulin measurementOr dered By: Hill Acuña on 12-02-2024 Globulin (S) [Mass/Vol] 2.6 g/dL 2.2-4.2 [place] Serum glucose measurement (m ass/volume)Ordered By: Hill Acuña on 12-02-2024 Glucose [Mass/Vol] 221 mg/dL High 70-[address] [facility] Serum or plasma alanine thomas otransferase (ALT) measurementOrdered By: Hill Acuña on 12-02-2024 ALT [Catalytic activity/Vol] 33 U/L <47 [facility] Serum or plasma albumin roosevelt urement (mass/volume)Ordered By: Hill Acuña on 12-02-2024 Albumin [Mass/Vol] 2.5 g/dL Low 3.5-5.[address] [facility] Serum or plasma albumin/glob ulin mass ratioOrdered By: Hill Acuña on 12-02-2024 Albumin/Globulin [Mass ratio] 1.0 {ratio} 0.9-2.4 [facility] Serum or plasma alkaline kendrick sphatase measurementOrdered By: Hill Acuña on 12-02-2024 ALP [Catalytic activity/Vol] 219 U/L High 40-129 [facility] Serum or plasma calcium roosevelt urement (mass/volume)Ordered By: Hill Acuña on 12-02-2024 Calcium [Mass/Vol] 7.8 mg/dL 7.6-11.[address] [facility] Serum or plasma urea nitroge n measurement (mass/volume)Ordered By: Hill Acuña on 12-02-2024 Urea nitrogen [Mass/Vol] 7 mg/dL 4-19 [facility] Sodium levelOrdered By: Paulino Acuña on 12-02-2024 Sodium [Moles/Vol] 132 mmol/L Low 133-[address] [facility] Total proteinOrdered By: Hugo Acuña on 12-02-2024 Protein [Mass/Vol] 5.1 g/dL Low 5.9-8.[address] [facility] Trough vancomycin levelOrder ed By: Maria Guadalupe Shore on 12-02-2024 Vancomycin trough [Mass/Vol] 19.6 ug/mL High 5.0-15.0 [facility] White blood cell (WBC) count Ordered By: Hill Acuña on 12-02-2024 WBC (Bld) [#/Vol] 5.9 10*3/uL 4.4-11.[address] [facility] Platelet estimateOrdered By: Hill Acuña on 11-30-2024 Platelets LM Ql (Bld) MOD DEC ADEQ [facility] Serum or plasma vancomycin m easurement (mass/volume)Ordered By: Kathie Powers on 11-30-2024 Vancomycin [Mass/Vol] 17.7 ug/mL High 0.0-15.0 [facility] Prothrombin timeOrdered By: Kathie Powers on 11-29-2024 PT Coag (PPP) [Time] 21.1 s High 11.7-14.9 [facility] Bilirubin Test strip Ql (U)O rdered By: Rachel Joiner on 11-28-2024 Bilirubin Ql (U) Negative Negative [facility] Bilirubin directOrdered By: Rachel Joiner on 11-28-2024 Bilirubin.direct [Mass/Vol] 0.72 mg/dL High 0.00-0.30 [facility] Ketones Test strip Ql (U)Ord ered By: Rachel Joiner on 11-28-2024 Ketones Ql (U) 5 mg/dl High Negative [facility] Mucus LM Ql (Urine sed)Order ed By: Rachel Joiner on 11-28-2024 Mucus Ql (Urine sed) 0 SEEN /hpf [facility] Nitrite Test strip Ql (U)Ord ered By: Rachel Joiner on 11-28-2024 Nitrite Ql (U) Positive High Negative [facility] Protein Test strip Ql (U)Ord ered By: Rachel Joiner on 11-28-2024 Protein Ql (U) 100 mg/dl High Negative [facility] Squamous epithelial cells de tection in urine sediment by light microscopyOrdered By: Rachel Joiner on 11-28-2024 Epithelial cells.squamous LM Ql (Urine sed) 0-5 SEEN /hpf 0-5 [facility] Urine clarityOrdered By: Shi Joiner on 11-28-2024 Clarity (U) Cloudy Clear [facility] Urine color determinationOrd ered By: Rachel Joiner on 11-28-2024 Color (U) Lexis Yellow [facility] Urine cultureOrdered By: Tyree Powers on 11-28-2024 Bacteria identified Cx Nom (U) ESBL Klebsiella pneumoniae pne Abnormal [facility] Urine glucose detectionOrder ed By: Rachel Joiner on 11-28-2024 Glucose Ql (U) Normal mg/dl Normal [facility] Urine leukocyte esterase det ection by dipstickOrdered By: Rachel Joiner on 11-28-2024 Leukocyte esterase Test strip Ql (U) 500 /ul High Negative [facility] Urine pHOrdered By: Rachel silva on 11-28-2024 pH (U) 6.5 [pH] 5.0 - 8.0 [facility] Urine sediment bacteria coun t by microscopy (number/high power field)Ordered By: Rachel Joiner on 11-28-2024 Bacteria LM.HPF (Urine sed) [#/Area] 1 /[HPF] None Seen [facility] Urine specific gravity measu rementOrdered By: Rachel Joiner on 11-28-2024 Specific gravity (U) [Rel density] 1.010 1.002-1.030 [facility] Urine urobilinogen measureme ntOrdered By: Rachel Joiner on 11-28-2024 Urobilinogen Ql (U) Normal mg/dl Normal [facility] Venous blood ammonia measure mentOrdered By: Rachel Joiner on 11-28-2024 Ammonia (P) [Moles/Vol] 68.4 umol/L High 16-60 [facility] White blood cell countOrdere d By: Rachel Joiner on 11-28-2024 White blood cell count 50-100 SEEN /hpf 0-5 [facility] Absolute lymphocyte countOrd ered By: Anurag Irene on 11-25-2024 Lymphocytes Auto (Unsp spec) [#/Vol] 0.92 10*3/uL 0.83-4.51 [facility] Anion gap in Serum or Plasma Ordered By: Anurag Irene on 11-25-2024 Anion gap [Moles/Vol] 8 mmol/L 5-15 [facility] Automated lymphocyte count a s percentage of total leukocytesOrdered By: Anurag Irene on 11-25-2024 Lymphocytes/100 WBC Auto (Unsp spec) 16.7 % Low 19-41 [facility] BUN/creatinine ratioOrdered By: Anurag Irene on 11-25-2024 Urea nitrogen/Creatinine [Mass ratio] 9.2 mg/mg Low 10-20 [facility] Basophil percentageOrdered B y: Anurag Irene on 11-25-2024 Basophils/100 WBC (Bld) 0.4 % 0-1 [facility] Bilirubin, totalOrdered By: Anurag Irene on 11-25-2024 Bilirubin [Mass/Vol] 1.07 mg/dL 0.00-1.30 [facility] Carbon dioxide, total [Moles /volume] in Central venous bloodOrdered By: Anurag Irene on 11-25-2024 CO2 [Moles/Vol] 19.3 mmol/L Low 21.0-32.0 [facility] Chloride assayOrdered By: Francois Irene on 11-25-2024 Chloride [Moles/Vol] 108 mmol/L 98-108 [facility] Eosinophil percentageOrdered By: Anurag Irene on 11-25-2024 Eosinophils/100 WBC (Bld) 4.2 % 0-5 [facility] Erythrocyte distribution wid th ratioOrdered By: Anurag Irene on 11-25-2024 Erythrocyte distribution width (RBC) [Ratio] 15.8 % High 11.6-14.6 [facility] Erythrocyte distribution wid th standard deviationOrdered By: Anurag Irene on 11-25-2024 Erythrocyte distribution width (RBC) [Ratio] 52.9 fl High 35.1-43.9 [facility] Glomerular filtration rate ( GFR) estimation/1.73 sq m using serum, plasma, or whole bOrdered By: Anurag Irene on 11-25-2024 GFR/1.73 sq M.predicted among non-blacks MDRD (S/P/Bld) [Vol rate/Area] 100 mL/min/{1.73_m2} >60 [facility] Glucose measurement at [facility] deOrdered By: Anurag Irene on 11-25-2024 Glucose [Mass/Vol] 222 mg/dL High 74-[address] [facility] Hematocrit Auto (Bld) [Volum e fraction]Ordered By: Anurag Irene on 11-25-2024 Hematocrit (Bld) [Volume fraction] 21.5 % Low 40-54 [facility] Hemoglobin measurementOrdere d By: Anurag Irene on 11-25-2024 Hemoglobin (Bld) [Mass/Vol] 7.0 g/dL Low 13.0-16.5 [facility] Immature granulocytes/100 WB C Auto (Bld)Ordered By: Anurag Irene on 11-25-2024 Immature granulocytes/100 WBC (Bld) 0.400 % 0.0-0.9 [facility] MCV (mean corpuscular volume ) determinationOrdered By: Anurag Irene on 11-25-2024 MCV (RBC) [Entitic vol] 93.1 fL 80-94 [facility] Mean corpuscular hemoglobin (MCH) determinationOrdered By: Anurag Irene on 11-25-2024 MCH (RBC) [Entitic mass] 30.3 pg 27.0-32.0 [facility] Monocyte percentageOrdered B y: Anurag Irene on 11-25-2024 Monocytes/100 WBC (Bld) 12.7 % High 0-10 [facility] Neutrophil percentageOrdered By: Anurag Irene on 11-25-2024 Neutrophils/100 WBC (Bld) 65.6 % 47-70 [facility] No Panel InformationOrdered By: Anurag Irene on 11-25-2024 60 U/L High <38 [facility] Platelet countOrdered By: Francois Irene on 11-25-2024 Platelets (Bld) [#/Vol] 82 10*3/uL Low 150-450 [facility] Potassium measurement (mass/ volume)Ordered By: Anurag Irene on 11-25-2024 Potassium (Unsp spec) [Mass/Vol] 4.2 mmol/L 3.3-5.1 [facility] RBC Auto (Bld) [#/Vol]Ordere d By: Anurag Irene on 11-25-2024 RBC (Bld) [#/Vol] 2.31 10*6/uL Low 4.6-6.2 [facility] Serum creatinine measurement (mass/volume)Ordered By: Anurag Irene on 11-25-2024 Creatinine [Mass/Vol] 0.86 mg/dL 0.70-1.20 [facility] Serum globulin measurementOr dered By: Anurag Irene on 11-25-2024 Globulin (S) [Mass/Vol] 2.2 g/dL 2.2-4.2 [facility] Serum glucose measurement (m ass/volume)Ordered By: Anurag Irene on 11-25-2024 Glucose [Mass/Vol] 179 mg/dL High 70-[address] [facility] Serum or plasma alanine thomas otransferase (ALT) measurementOrdered By: Anurag Irene on 11-25-2024 ALT [Catalytic activity/Vol] 41 U/L <47 [facility] Serum or plasma albumin roosevelt urement (mass/volume)Ordered By: Anurag Irene on 11-25-2024 Albumin [Mass/Vol] 2.7 g/dL Low 3.5-5.[address] [facility] Serum or plasma albumin/glob ulin mass ratioOrdered By: Anurag Irene on 11-25-2024 Albumin/Globulin [Mass ratio] 1.2 {ratio} 0.9-2.4 [facility] Serum or plasma alkaline kendrick sphatase measurementOrdered By: Anurag Irene on 11-25-2024 ALP [Catalytic activity/Vol] 168 U/L High 40-129 [facility] Serum or plasma calcium roosevelt urement (mass/volume)Ordered By: Anurag Irene on 11-25-2024 Calcium [Mass/Vol] 8.3 mg/dL 7.6-11.[address] [facility] Serum or plasma urea nitroge n measurement (mass/volume)Ordered By: Anurag Irene on 11-25-2024 Urea nitrogen [Mass/Vol] 8 mg/dL 4-19 [facility] Sodium levelOrdered By: Marni Irene on 11-25-2024 Sodium [Moles/Vol] 135 mmol/L 133-[address] [facility] Total proteinOrdered By: [place] Irene on 11-25-2024 Protein [Mass/Vol] 4.9 g/dL Low 5.9-8.[address] [facility] White blood cell (WBC) count Ordered By: Anurag Irene on 11-25-2024 WBC (Bld) [#/Vol] 5.5 10*3/uL 4.4-11.[address] [facility] Blood manual differential co mment interpretation (narrative result)Ordered By: Anurag Irene on 11-24-2024 Manual differential comment Marco Antonio (Bld) [Interp] SCANNED [facility] Platelet estimateOrdered By: Anurag Irene on 11-24-2024 Platelets LM Ql (Bld) MOD DEC ADEQ [facility] Prothrombin timeOrdered By: Anurag Irene on 11-24-2024 PT Coag (PPP) [Time] 22.6 s High 11.7-14.9 [facility] Bilirubin directOrdered By: Anurag Irene on 11-22-2024 Bilirubin.direct [Mass/Vol] 0.73 mg/dL High 0.00-0.30 [facility] ALP [Catalytic activity/Vol] Ordered By: Herberth Carlson on 11-21-2024 Serum or plasma alkaline phosphatase measurement 245 U/L High 40-129 [facility] ALT [Catalytic activity/Vol] Ordered By: Herberth Carlson on 11-21-2024 Serum or plasma alanine aminotransferase (ALT) measurement 61 U/L High <47 [facility] Absolute neutrophil countOrd ered By: Herberth Carlson on 11-21-2024 Absolute neutrophil count 6.5 X10^3/uL 2.0-7.7 [facility] Albumin [Mass/Vol]Ordered By : Herberth Carlson on 11-21-2024 Serum or plasma albumin measurement (mass/volume) 2.5 g/dL Low 3.5-5.0 [facility] Albumin/Globulin [Mass ratio ]Ordered By: Herberth Carlson on 11-21-2024 Serum or plasma albumin/globulin mass ratio 0.9 RATIO 0.9-2.4 [facility] Anion gap [Moles/Vol]Ordered By: Herberth Carlson on 11-21-2024 Anion gap in Serum or Plasma 11 5-15 [facility] BUN/creatinine ratioOrdered By: Herberth Carlson on 11-21-2024 BUN/creatinine ratio 19.1 RATIO 10-20 [facility] Bacteria LM.HPF (Urine sed) [#/Area]Ordered By: Herberth Carlson on 11-21-2024 Urine sediment bacteria count by microscopy (number/high power field) RARE /hpf None Seen [facility] Basophil percentageOrdered B y: Herberth Carlson on 11-21-2024 Basophil percentage 0.2 % 0-1 [facility] Bilirubin Test strip Ql (U)O rdered By: Herberth Carlson on 11-21-2024 Bilirubin Ql (U) Negative Negative [facility] Bilirubin, totalOrdered By: Herberth Carlson on 11-21-2024 Bilirubin, total 1.33 mg/dL High 0.00-1.30 [facility] Calcium [Mass/Vol]Ordered By : Herberth Carlson on 11-21-2024 Serum or plasma calcium measurement (mass/volume) 8.7 mg/dL 7.6-11.0 [facility] Carbon dioxide, total [Moles /volume] in Central venous bloodOrdered By: Herberth Carlson on 11-21-2024 Carbon dioxide, total [Moles/volume] in Central venous blood 17.5 mmol/L Low 21.0-32.0 [facility] Chloride assayOrdered By: Kaylyn Carlson on 11-21-2024 Chloride assay 103 mmol/L 98-108 [facility] Clarity (U)Ordered By: Ashish Carlson on 11-21-2024 Urine clarity Sl Cldy Clear [facility] Color (U)Ordered By: Herberth Carlson on 11-21-2024 Urine color determination Yellow Yellow [facility] Creatinine [Mass/Vol]Ordered By: Herberth Carlson on 11-21-2024 Serum creatinine measurement (mass/volume) 1.49 mg/dL High 0.70-1.20 [facility] Eosinophil percentageOrdered By: Herberth Carlson on 11-21-2024 Eosinophil percentage 7.2 % High 0-5 [facility] Erythrocyte distribution wid th (RBC) [Ratio]Ordered By: Herberth Carlson on 11-21-2024 Erythrocyte distribution width ratio 16.8 % High 11.6-14.6 [facility] Erythrocyte distribution width standard deviation 57.1 fl High 35.1-43.9 [facility] Estimation of creatinine [place] aranceOrdered By: Herberth Carlson on 11-21-2024 Estimation of creatinine clearance 64.65 ml/min 50-250 [facility] GFR/1.73 sq M.predicted niki g non-blacks MDRD (S/P/Bld) [Vol rate/Area]Ordered By: Herberth Carlson on 11-21-2024 Glomerular filtration rate (GFR) estimation/1.73 sq m using serum, plasma, or whole b 54 Low >60 [facility] Glucose [Mass/Vol]Ordered By : Herberth Carlson on 11-21-2024 Serum glucose measurement (mass/volume) 188 mg/dL High 70-99 [facility] Hematocrit Auto (Bld) [Volum e fraction]Ordered By: Herberth Carlson 11-21-2024 Automated blood hematocrit (percentage) 24.6 % Low 40-54 [facility] Hemoglobin measurementOrdere d By: Herberth Carlson on 11-21-2024 Hemoglobin measurement 8.3 g/dL Low 13.0-16.5 [facility] Immature granulocytes/100 WB C Auto (Bld)Ordered By: Herberth Carlson 11-21-2024 Automated immature granulocyte percentage 0.800 % 0.0-0.9 [facility] International normalized rat io (INR) calculationOrdered By: Herberth Carlson 11-21-2024 International normalized ratio (INR) calculation 2.6 [facility] Ketones Test strip Ql (U)Ord ered By: Herberth Carlson on 11-21-2024 Ketones Ql (U) Negative Negative [facility] [facility] Lactic acid measurementOrder ed By: Herberth Carlson on 11-21-2024 Lactic acid measurement 2.7 mmol/L High 0.0-2.0 [facility] Leukocyte esterase Test stri p Ql (U)Ordered By: Herberth Carlson on 11-21-2024 Urine leukocyte esterase detection by dipstick 500 /ul High Negative [facility] Lymphocytes Auto (Unsp spec) [#/Vol]Ordered By: Herberth Carlson on 11-21-2024 Absolute lymphocyte count 1.33 X10^3/uL 0.83-4.51 [facility] Lymphocytes/100 WBC Auto (Un sp spec)Ordered By: Herberth Carlson on 11-21-2024 Automated lymphocyte count as percentage of total leukocytes 13.9 % Low 19-41 [facility] MCV (RBC) [Entitic vol]Order ed By: Herberth Carlson on 11-21-2024 MCV (mean corpuscular volume) determination 93.2 fL 80-94 [facility] Mean corpuscular hemoglobin (MCH) determinationOrdered By: Herberth Carlson on 11-21-2024 Mean corpuscular hemoglobin (MCH) determination 31.4 pg 27.0-32.0 [facility] Mean corpuscular hemoglobin concentration (MCHC) determinationOrdered By: Herberth Carlson on 11-21-2024 Mean corpuscular hemoglobin concentration (MCHC) determination 33.7 g/dL 32-36 [facility] Mean platelet volume determi nationOrdered By: Herberth Carlson on 11-21-2024 Mean platelet volume determination 11.6 fl 6.2-12.0 [facility] Monocyte percentageOrdered B y: Herberth Carlson on 11-21-2024 Monocyte percentage 9.2 % 0-10 [facility] Mucus LM Ql (Urine sed)Order ed By: Herberth Carlson on 11-21-2024 Mucus Ql (Urine sed) 0 SEEN /hpf [facility] Neutrophil percentageOrdered By: Herberth Carlson on 11-21-2024 Neutrophil percentage 68.7 % 47-70 [facility] Nitrite Test strip Ql (U)Ord ered By: Herberth Carlson on 11-21-2024 Nitrite Ql (U) Negative Negative [facility] No Panel InformationOrdered By: Herberth Carlson on 11-21-2024 112 U/L High <38 [facility] Nucleated red blood cell per centageOrdered By: Herberth Carlson on 11-21-2024 Nucleated red blood cell percentage 0 % 0-5 [facility] Platelet countOrdered By: Kaylyn Carlson on 11-21-2024 Platelet count 167 K/mm3 150-450 [facility] Potassium (Unsp spec) [Mass/ Vol]Ordered By: Herberth Carlson on 11-21-2024 Potassium measurement (mass/volume) 5.0 mmol/L 3.3-5.1 [facility] Protein Test strip Ql (U)Ord ered By: Herberth Carlson on 11-21-2024 Protein Ql (U) 500 mg/dl High Negative [facility] Urine protein assay by test strip, semi-quantitative 500 mg/dl High Negative [facility] Prothrombin timeOrdered By: Herberth Carlson on 11-21-2024 Prothrombin time 28.2 SECONDS High 11.7-14.[address] [facility] RBC Auto (Bld) [#/Vol]Ordere d By: Herberth Carlson on 11-21-2024 Automated blood erythrocyte count 2.64 M/mm3 Low 4.6-6.2 [facility] Serum globulin measurementOr dered By: Herberth Carlson on 11-21-2024 Serum globulin measurement 2.7 g/dL 2.2-4.2 [facility] Sodium levelOrdered By: Norman Carlson on 11-21-2024 Sodium level 132 mmol/L Low 133-145 [facility] Specific gravity (U) [Rel de nsity]Ordered By: Herberth Carlson on 11-21-2024 Urine specific gravity measurement 1.015 1.002-1.030 [facility] Squamous epithelial cells de tection in urine sediment by light microscopyOrdered By: Herberth Carlson on 11-21-2024 Epithelial cells.squamous LM Ql (Urine sed) 0 SEEN /hpf 0-5 [facility] Squamous epithelial cells detection in urine sediment by light microscopy 0 SEEN /hpf [facility] Total proteinOrdered By: Digna Carlson on 11-21-2024 Total protein 5.2 g/dL Low 5.9-8.4 [facility] Urea nitrogen [Mass/Vol]Orde red By: Herberth Carlson on 11-21-2024 Serum or plasma urea nitrogen measurement (mass/volume) 28 mg/dL High 4-19 [facility] Urine blood detectionOrdered By: Herberth Carlson on 11-21-2024 Urine blood detection 250 /ul High Negative [facility] Urine clarityOrdered By: Digna Carlson on 11-21-2024 Clarity (U) Sl Cldy Clear [facility] Urine color determinationOrd ered By: Herberth Carlson on 11-21-2024 Color (U) Yellow Yellow [facility] Urine cultureOrdered By: Digna Carlson on 11-21-2024 Bacteria identified Cx Nom (U) GNR lactose undercoater Abnormal [facility] Bacteria identified Cx Nom (U) GPC Poss Enterococcus sp Abnormal [facility] Bacteria identified Cx Nom (U) Positive Abnormal [facility] Urine glucose detectionOrder ed By: Herberth Carlson on 11-21-2024 Glucose Ql (U) Normal mg/dl Normal [facility] Urine glucose detection Normal mg/dl Normal [facility] Urine leukocyte esterase det ection by dipstickOrdered By: Herberth Carlson on 11-21-2024 Leukocyte esterase Test strip Ql (U) 500 /ul High Negative [facility] Urine pHOrdered By: Herberth Carlson on 11-21-2024 pH (U) 6.0 [pH] 5.0 - 8.0 [facility] Urine sediment bacteria coun t by microscopy (number/high power field)Ordered By: Herberth Carlson on 11-21-2024 Bacteria LM.HPF (Urine sed) [#/Area] RARE /hpf None Seen [facility] Urine specific gravity measu rementOrdered By: Herberth Carlson on 11-21-2024 Specific gravity (U) [Rel density] 1.015 1.002-1.030 [facility] Urine total bilirubin detect ion by test stripOrdered By: Herberth Carlson on 11-21-2024 Urine total bilirubin detection by test strip Negative Negative [facility] Urine urobilinogen measureme ntOrdered By: Herberth Carlson on 11-21-2024 Urobilinogen Ql (U) Normal mg/dl Normal [facility] Venous blood ammonia measure mentOrdered By: Herberth Carlson on 11-21-2024 Ammonia (P) [Moles/Vol] 17.9 umol/L [facility] Venous blood ammonia measurement 17.9 umol/L [facility] White blood cell (WBC) count Ordered By: Herberth Carlson on 11-21-2024 White blood cell (WBC) count 9.5 K/mm3 4.4-11.0 [facility] White blood cell countOrdere d By: Herberth Carlson on 11-21-2024 White blood cell count >100 SEEN /hpf 0-5 [facility] White blood cell count >100 SEEN /hpf 0-5 [facility] pH (U)Ordered By: Herberth henao on 11-21-2024 Urine pH 6.0 5.0 - 8.0 [facility] Bacteria Ur Culton Bacteria identified Cx Nom (U) CULTURE, URINE: Mixed microbiota, including predominantly: ORGANISM ID: 1 >=100,000 CFU/ml Mary glabrata No susceptibility testing done. Normal [facility] Comment on above: Performed By: #### 6 30-4 ####[facility] LABCLIA [id number] [place] [address] [place] Bacteria identified Cx Nom (U) Normal [facility] Comment on above: Performed By: #### 2 4356-8, 630-4 ####[facility] LABCLIA [id number] [place] [address] [place] Basic metabolic 2000 panelon 11-18-2024 Anion gap [Moles/Vol] 8 mmol/L Normal 8-15 [facility] Comment on above: Order Comment: Speci men Type: BLOOD SPECIMENOrdering Facility: [facility] Address: [address] [place] [address] Performed By: #### 2 4321-2, 16351-1, 2777-1 ####[facility] LABCLIA [id number] [place] [address] [place] Calcium [Mass/Vol] 8.3 mg/dL Low 8.5-10.2 [facility] Comment on above: Order Comment: Speci men Type: BLOOD SPECIMENOrdering Facility: [facility] Address: [address] [place] [address] Performed By: #### 2 4321-2, 59938-3, 2777-1 ####[facility] LABCLIA [id number] [facility] [place] [id number] [place] Chloride [Moles/Vol] 102 mmol/L Normal 98-107 [facility] Comment on above: Order Comment: Speci men Type: BLOOD SPECIMENOrdering Facility: [facility] Address: [address] [place] [address] Performed By: #### 2 4321-2, 86937-8, 277-1 ####[facility] LABCLIA [id number] [place] [address] [place] CO2 [Moles/Vol] 19 mmol/L Low 22-30 [facility] Comment on above: Order Comment: Speci men Type: BLOOD SPECIMENOrdering Facility: [facility] Address: [address] [place] [address] Performed By: #### 2 4321-2, 82125-4, 2776- ####[facility] LABCLIA [id number] [place] [address] [place] Creatinine [Mass/Vol] 0.95 mg/dL Normal 0.73-1.22 [facility] Comment on above: Order Comment: Speci men Type: BLOOD SPECIMENOrdering Facility: [facility] Address: [address] [place] [address] Performed By: #### 2 4321-2, 51952-1, 277-1 ####[facility] LABCLIA [id number] [facility] [address] [address] [place] Creatinine and Glomerular filtration rate.predicted panel (S/P/Bld) 93 mL/min/1.73m??? Normal >=60 [facility] Comment on above: Order Comment: Ezekiel ramirez Type: BLOOD SPECIMENOrdering Facility: [facility] Address: [address] [place] [address] Result Comment: Patric mated Glomerular Filtration Rate [...] actual GFR. Performed By: #### 2 4321-2, 73344-1, 2777-1 ####[facility] [id number] [place] [address] [place] Glucose [Mass/Vol] 248 mg/dL High 74-99 [facility] Comment on above: Order Comment: Ezekiel ramirez Type: BLOOD SPECIMENOrdering Facility: [facility] Address: [address] [place] [address] Result Comment: The [place] [employer] (ADA) provides guidance for cutoff [...] Standards of Medical Care in Diabetes 2016, [place] [employer]. Diabetes Care. 2016.39(Suppl 1). Performed By: #### 2 4321-2, 36062-9, 2777-1 ####[facility] LABIA [id number] [address] [address] [place] Potassium [Moles/Vol] 4.4 mmol/L Normal 3.7-5.1 [facility] Comment on above: Order Comment: Speci men Type: BLOOD SPECIMENOrdering Facility: [facility] Address: [address] [place], [place] [address] Performed By: #### 2 4321-2, 41547-6, 277- ####[facility] LABCLIA [id number] [address] [address] [place] Sodium [Moles/Vol] 129 mmol/L Low 136-144 [facility] Comment on above: Order Comment: Speci men Type: BLOOD SPECIMENOrdering Facility: [facility] Address: [address] [place] [address] Performed By: #### 2 4321-2, 87378-1, 27702-01 ####[facility] LABCLIA [id number] [address] [address] [place] Urea nitrogen [Mass/Vol] 16 mg/dL Normal 9-24 [facility] Comment on above: Order Comment: Speci men Type: BLOOD SPECIMENOrdering Facility: [facility] Address: [address] [place] [address] Performed By: #### 2 4321-2, 98882-6, 27702-01 ####[facility] LABCLIA [id number] [place] [id number] [place] CASE MANAGEMon 11-18-2024 CASE MANAGEM Normal [facility] CBC W Auto Differential pane l (Bld)on 11-18-2024 Basophils (Bld) [#/Vol] 10*3/uL Normal <0.11 [facility] Comment on above: Order Comment: Speci men Type: BLOOD SPECIMENOrdering Facility: [facility] Address: [address] [place] [address] Performed By: #### 5 7021-8 ####[facility] LABCLIA [id number] [address] [address] [place] Basophils/100 WBC (Bld) 0.0 % [facility] Comment on above: Order Comment: Speci men Type: BLOOD SPECIMENOrdering Facility: [facility] Address: [address] [place] [address] Performed By: #### 5 7021-8 ####[facility] LABCLIA [id number] [place] [address] [place] Differential cell count method Nom (Bld) Auto Normal [facility] Comment on above: Order Comment: Speci men Type: BLOOD SPECIMENOrdering Facility: [facility] Address: [address] [place] [address] Performed By: #### 5 7021-8 ####[facility] LABCLIA [id number] [place] [address] [place] Eosinophils (Bld) [#/Vol] 10*3/uL Normal <0.46 [facility] Comment on above: Order Comment: Speci men Type: BLOOD SPECIMENOrdering Facility: [facility] Address: [address] [place] [address] Performed By: #### 5 7021-8 ####[facility] LABCLIA [id number] [place] [address] [place] Eosinophils/100 WBC (Bld) 0.1 % Normal [facility] Comment on above: Order Comment: Speci men Type: BLOOD SPECIMENOrdering Facility: [facility] Address: [address] [place] [address] Performed By: #### 5 7021-8 ####[facility] LABCLIA [id number] [place] [address] [place] Erythrocyte distribution width (RBC) [Ratio] 16.7 % High 11.5-15.0 [facility] Comment on above: Order Comment: Speci men Type: BLOOD SPECIMENOrdering Facility: [facility] Address: [address] [place] [address] Performed By: #### 5 7021-8 ####[facility] LABCLIA [id number] [place] [address] [place] Hematocrit (Bld) [Volume fraction] 21.5 % Low 39.0-51.0 [facility] Comment on above: Order Comment: Speci men Type: BLOOD SPECIMENOrdering Facility: [facility] Address: [address] [place] [address] Performed By: #### 5 7021-8 ####[facility] LABCLIA [id number] [place] [address] [place] Hemoglobin (Bld) [Mass/Vol] 7.2 g/dL Low 13.0-17.0 [facility] Comment on above: Order Comment: Speci men Type: BLOOD SPECIMENOrdering Facility: [facility] Address: [address] [place] [address] Performed By: #### 5 7021-8 ####[facility] LABCLIA [id number] [place] [address] [place] Immature granulocytes (Bld) [#/Vol] 0.06 10*3/uL Normal <0.10 [facility] Comment on above: Order Comment: Speci men Type: BLOOD SPECIMENOrdering Facility: [facility] Address: [address] [place] [address] Performed By: #### 5 7021-8 ####[facility] LABCLIA [id number] [place] [address] [place] Immature granulocytes/100 WBC (Bld) 0.7 % Normal [facility] Comment on above: Order Comment: Speci men Type: BLOOD SPECIMENOrdering Facility: [facility] Address: [address] [place] [address] Performed By: #### 5 7021-8 ####[facility] LABCLIA [id number] [place] [address] [place] Lymphocytes (Bld) [#/Vol] 0.61 10*3/uL Low 1.00-4.00 [facility] Comment on above: Order Comment: Speci men Type: BLOOD SPECIMENOrdering Facility: [facility] Address: [address] [place] [address] Performed By: #### 5 7021-8 ####[facility] LABIA [id number] [place] [address] [place] Lymphocytes/100 WBC (Bld) 7.3 % Normal [facility] Comment on above: Order Comment: Speci men Type: BLOOD SPECIMENOrdering Facility: [facility] Address: [address] [place] [address] Performed By: #### 5 7021-8 ####[facility] LABIA [id number] [place] [address] [place] MCH (RBC) [Entitic mass] 30.9 pg Normal 26.0-34.0 [facility] Comment on above: Order Comment: Speci men Type: BLOOD SPECIMENOrdering Facility: [facility] Address: [address] [place] [address] Performed By: #### 5 7021-8 ####[facility] LABIA [id number] [place] [address] [place] MCHC (RBC) [Mass/Vol] 33.5 g/dL Normal 30.5-36.0 [facility] Comment on above: Order Comment: Speci men Type: BLOOD SPECIMENOrdering Facility: [facility] Address: [address] [place] [address] Performed By: #### 5 7021-8 ####[facility] LABIA [id number] [place] [address] [place] MCV (RBC) [Entitic vol] 92.3 fL Normal 80.0-100.0 C [facility] Comment on above: Order Comment: Speci men Type: BLOOD SPECIMENOrdering Facility: [facility] Address: [address] [place] [address] Performed By: #### 5 7021-8 ####[facility]CLIA [id number] [facility] [address] [place] [address] [place] Monocytes (Bld) [#/Vol] 0.72 10*3/uL Normal <0.87 [facility] Comment on above: Order Comment: Speci men Type: BLOOD SPECIMENOrdering Facility: [facility] Address: [address] [place] [address] Performed By: #### 5 7021-8 ####[facility] LABCLIA [id number] [facility] [address], [facility] [place] Monocytes/100 WBC (Bld) 8.7 % Normal [facility] Comment on above: Order Comment: Speci men Type: BLOOD SPECIMENOrdering Facility: [facility] Address: [address] [place] [address] Performed By: #### 5 7021-8 ####[facility] LABCLIA [id number] [place] [address] [place] Neutrophils (Bld) [#/Vol] 6.92 10*3/uL Normal 1.45-7.50 [facility] Comment on above: Order Comment: Speci men Type: BLOOD SPECIMENOrdering Facility: [facility] Address: [address] [place] [address] Performed By: #### 5 7021-8 ####[facility] LABCLIA [id number] [address], [facility] [place] Neutrophils/100 WBC (Bld) 83.2 % Normal [facility] Comment on above: Order Comment: Speci men Type: BLOOD SPECIMENOrdering Facility: [facility] Address: [address] [place] [address] Performed By: #### 5 7021-8 ####[facility] LABCLIA [id number] [address] [place] [address] [place] Nucleated RBC (Bld) [#/Vol] 10*3/uL Normal <0.01 [facility] Comment on above: Order Comment: Speci men Type: BLOOD SPECIMENOrdering Facility: [facility] Address: [address] [place] [address] Performed By: #### 5 7021-8 ####[facility] LABIA [id number] [place] [address] [place] Nucleated RBC/100 WBC (Bld) [Ratio] 0.0 /100 WBC Normal [facility] Comment on above: Order Comment: Speci men Type: BLOOD SPECIMENOrdering Facility: [facility] Address: [address] [place] [address] Performed By: #### 5 7021-8 ####[facility] LABIA [id number] [place] [address] [place] Platelet mean volume (Bld) [Entitic vol] 12.1 fL Normal 9.0-12.7 [facility] Comment on above: Order Comment: Speci men Type: BLOOD SPECIMENOrdering Facility: [facility] Address: [address] [place] [address] Performed By: #### 5 7021-8 ####[facility] [id number] [place] [address] [place] Platelets (Bld) [#/Vol] 76 10*3/uL Low 150-400 C [facility] Comment on above: Order Comment: Speci men Type: BLOOD SPECIMENOrdering Facility: [facility] Address: [address] [place] [address] Result Comment: No c lot detected. Performed By: #### 5 7021-8 ####[facility] LABIA [id number] [place] [address] [place] RBC (Bld) [#/Vol] 2.33 10*6/uL Low 4.20-6.00 [facility] Comment on above: Order Comment: Speci men Type: BLOOD SPECIMENOrdering Facility: [facility] Address: [address] [place] [address] Performed By: #### 5 7021-8 ####[facility] LABCLIA [id number] [place] [address] [place] WBC (Bld) [#/Vol] 8.32 10*3/uL Normal 3.70-11.00 [facility] Comment on above: Order Comment: Speci men Type: BLOOD SPECIMENOrdering Facility: [facility] Address: [address] [place] [address] Performed By: #### 5 7021-8 ####[facility] LABCLIA [id number] [place] [address] [place] CNCOon 11-18-2024 CNCO Letter Text Normal [facility] CNDSon 11-18-2024 CNDS Normal [facility] CNPNon 11-18-2024 CNPN Normal [facility] Fibrinogen PPP-mCncon 2024 Fibrinogen Coag (PPP) [Mass/Vol] 104 mg/dL Low 200-400 [facility] Comment on above: Order Comment: Speci men Type: BLOOD SPECIMENOrdering Facility: [facility] Address: [address] [place] [address] Performed By: #### 3 255-7, 50525-7 ####[facility] LABCLIA [id number] [place] [address] [place] Hepatic function 2000 panelo n 11-18-2024 Albumin [Mass/Vol] 2.6 g/dL Low 3.9-4.9 [facility] Comment on above: Order Comment: Speci men Type: BLOOD SPECIMENOrdering Facility: [facility] Address: [address] [place] [address] Performed By: #### 2 4321-2, 65932-7, 2777-1 ####[facility] LABCLIA [id number] [place] [address] [place] ALP [Catalytic activity/Vol] 245 U/L High 38-113 [facility] Comment on above: Order Comment: Speci men Type: BLOOD SPECIMENOrdering Facility: [facility] Address: [address] [place] [address] Performed By: #### 2 4321-2, 47864-0, 2776- ####[facility] LABCLIA [id number] [place] [address] [place] ALT [Catalytic activity/Vol] 31 U/L Normal 10-54 [facility] Comment on above: Order Comment: Speci men Type: BLOOD SPECIMENOrdering Facility: [facility] Address: [address] [place] [address] Performed By: #### 2 4321-2, 38590-8, 2776- ####[facility] LABCLIA [id number] [place] [address] [place] AST [Catalytic activity/Vol] 52 U/L High 14-40 [facility] Comment on above: Order Comment: Speci men Type: BLOOD SPECIMENOrdering Facility: [facility] Address: [address] [place] [address] Performed By: #### 2 4321-2, 73103-3, 2776-08 ####[facility] LABCLIA [id number] [place] [id number] [place] Bilirubin [Mass/Vol] 1.2 mg/dL Normal 0.2-1.3 [facility] Comment on above: Order Comment: Speci men Type: BLOOD SPECIMENOrdering Facility: [facility] Address: [address] [place] [address] Performed By: #### 2 4321-2, 29512-5, 2776- ####[facility] LABCLIA [id number] [facility] [facility] [place] [id number] [place] Bilirubin.conjugated [Mass/Vol] 0.7 mg/dL High <0.3 [facility] Comment on above: Order Comment: Speci men Type: BLOOD SPECIMENOrdering Facility: [facility] Address: [address] [place] [address] Performed By: #### 2 4321-2, 64401-3, 2777-1 ####[facility] LABCLIA [id number] [place] [id number] [place] Protein [Mass/Vol] 5.0 g/dL Low 6.3-8.0 [facility] Comment on above: Order Comment: Ezekiel ramirez Type: BLOOD SPECIMENOrdering Facility: [facility] Address: [address] [place] [address] Performed By: #### 2 4321-2, 05094-4, 2777- ####[facility] LABCLIA [id number] [place] [address] [place] NURSING PROGon 11-18-2024 NURSING PROG Normal [facility] PT panel Coag (PPP)on 2024 INR Coag (PPP) [Relative time] 2.0 {INR} High 0.9-1.3 [facility] Comment on above: Order Comment: Ezekiel ramirez Type: BLOOD SPECIMENOrdering Facility: [facility] Address: [address] [place] [address] Result Comment: Sarah min K Antagonist (VKA) Therapeutic Range: INR 2 to 3 (Target INR of 2.5)Note: For patients treated with VKA drugs, such as warfarin, the [employer] 2012 Guideline recommends [...] of 3).Tammi GONZALES, et al. Chest 2012, 141:7S-47SNishimura RA, et al. [facility] 2017, 70: 252-289 Performed By: #### 3 255-7, 31559-1 ####[facility] LABCLIA [id number] [place] [address] [place] PT Coag (PPP) [Time] 20.9 s High 9.7-13.0 [facility] Comment on above: Order Comment: Speci men Type: BLOOD SPECIMENOrdering Facility: [facility] Address: [address] [place] [address] Performed By: #### 3 255-7, 25559-2 ####[facility] LABCLIA [id number] [place] [address] [place] Phosphate SerPl-mCncon 11-18 Phosphate [Mass/Vol] 2.4 mg/dL Low 2.7-4.8 [facility] Comment on above: Order Comment: Speci men Type: BLOOD SPECIMENOrdering Facility: [facility] Address: [address] [place] [address] Performed By: #### 2 4321-2, 06883-7, 2777-1 ####[facility] LABIA [id number] [place] [address] [place] TYPE + SCREENon 11-18-2024 ABO O Normal [facility] Comment on above: Order Comment: Speci men Type: BLOOD SPECIMENOrdering Facility: [facility] Address: [address] [place] [address] Performed By: #### T SCR ####[facility] BLOOD BANKCLIA [id number] [place] [address] [place] Rh Nom (Bld) Positive Normal [facility] Comment on above: Order Comment: Speci men Type: BLOOD SPECIMENOrdering Facility: [facility] Address: [address] [place] [address] Performed By: #### T SCR ####[facility] BLOOD BANKIA [id number] [place] [address] [place] TYPE AND SCREEN EXPIRATION 11/21/2024 23:59 Normal [facility] Comment on above: Order Comment: Speci men Type: BLOOD SPECIMENOrdering Facility: [facility] Address: [address] [place] [address] Performed By: #### T SCR ####[facility] BLOOD BANKCLIA [id number] [place] [address] [place] Urinalysis complete panel (U )on 11-18-2024 BACTERIA UL 1671.0 uL High Negative [facility] Comment on above: Order Comment: Speci men Type: URINE SPECIMENOrdering Facility: [facility] Address: [address] [place] [address] Performed By: #### 2 4356-8, 630-4 ####[facility] LABCLIA [id number] [place] [address] [place] Bilirubin Ql (U) 2+ Abnormal Negative [facility] Comment on above: Order Comment: Speci men Type: URINE SPECIMENOrdering Facility: [facility] Address: [address] [place] [address] Result Comment: Sugg est correlation with clinical findings and serum bilirubin if clinically indicated. Performed By: #### 2 4356-8, 630-4 ####[facility] LABCLIA [id number] [place] [address] [place] CALCIUM OXALATE CRYSTALS (UA) Few Abnormal None Seen [facility] Comment on above: Order Comment: Speci men Type: URINE SPECIMENOrdering Facility: [facility] Address: [address] [place] [address] Performed By: #### 2 4356-8, 630-4 ####[facility] LABCLIA [id number] [place] [id number] [place] Clarity (Unsp spec) Turbid Abnormal [facility] Comment on above: Order Comment: Speci men Type: URINE SPECIMENOrdering Facility: [facility] Address: [address] [place] [address] Performed By: #### 2 4356-8, 630-4 ####[facility] LABCLIA [id number] [place] [address] [place] Color (U) Red Abnormal Yellow [facility] Comment on above: Order Comment: Speci men Type: URINE SPECIMENOrdering Facility: [facility] Address: [address] [place] [address] Performed By: #### 2 4356-8, 630-4 ####[facility] LABCLIA [id number] [place] [address] [place] Epithelial cells LM.HPF (Urine sed) [#/Area] None Seen Normal [facility] Comment on above: Order Comment: Speci men Type: URINE SPECIMENOrdering Facility: [facility] Address: [address] [place] [address] Performed By: #### 2 4356-8, 630-4 ####[facility] LABCLIA [id number] [place] [address] [place] Glucose Test strip (U) [Mass/Vol] Negative Normal Negative [facility] Comment on above: Order Comment: Speci men Type: URINE SPECIMENOrdering Facility: [facility] Address: [address] [place] [address] Performed By: #### 2 4356-8, 630-4 ####[facility] LABCLIA [id number] [place] [id number] [place] Hemoglobin Ql (U) 2+ Abnormal Negative [facility] Comment on above: Order Comment: Speci men Type: URINE SPECIMENOrdering Facility: [facility] Address: [address] [place] [address] Performed By: #### 2 4356-8, 630-4 ####[facility] LABCLIA [id number] [address] [place] [address] [place] Hyaline casts (Urine sed) [#/Area] 0 /[LPF] Normal 0 /LPF [facility] Comment on above: Order Comment: Speci men Type: URINE SPECIMENOrdering Facility: [facility] Address: [address] [place] [address] Performed By: #### 2 4356-8, 630-4 ####[facility] LABCLIA [id number] [address], [place] [address] [place] Ketones Ql (U) Negative Normal Negative [facility] Comment on above: Order Comment: Speci men Type: URINE SPECIMENOrdering Facility: [facility] Address: [address] [place] [address] Performed By: #### 2 4356-8, 630-4 ####[facility] LABCLIA [id number] [address], [address] [place] Leukocyte esterase Test strip Ql (U) 3+ Abnormal Negative [facility] Comment on above: Order Comment: Speci men Type: URINE SPECIMENOrdering Facility: [facility] Address: [address] [place] [address] Performed By: #### 2 4356-8, 630-4 ####[facility] LABCLIA [id number] [address], [place] [address] [place] Nitrite Ql (U) Negative Normal Negative [facility] Comment on above: Order Comment: Speci men Type: URINE SPECIMENOrdering Facility: [facility] Address: [address] [place] [address] Result Comment: Resu lt rechecked. Performed By: #### 2 4356-8, 630-4 ####[facility] LABCLIA [id number] [address], [facility] [place] pH (U) 5.0 [pH] Normal <8.5 [facility] Comment on above: Order Comment: Speci men Type: URINE SPECIMENOrdering Facility: [facility] Address: [address] [place] [address] Performed By: #### 2 4356-8, 630-4 ####[facility] LABIA [id number] [place] [address] [place] Protein (U) [Mass/Vol] 2+ Abnormal Negative [facility] Comment on above: Order Comment: Speci men Type: URINE SPECIMENOrdering Facility: [facility] Address: [address] [place] [address] Performed By: #### 2 4356-8, 630-4 ####[facility] LABIA [id number] [place] [address] [place] RBC LM.HPF (Urine sed) [#/Area] /[HPF] Abnormal 0-2 /HPF [facility] Comment on above: Order Comment: Speci men Type: URINE SPECIMENOrdering Facility: [facility] Address: [address] [place] [address] Performed By: #### 2 4356-8, 630-4 ####[facility] [id number] [place] [address] [place] Specific gravity (U) [Rel density] 1.021 Normal 1.005-1.030 [facility] Comment on above: Order Comment: Speci men Type: URINE SPECIMENOrdering Facility: [facility] Address: [address] [place] [address] Performed By: #### 2 4356-8, 630-4 ####[facility] [id number] [place] [address] [place] Urobilinogen Ql (U) 0.2 EU/dL Normal 0.2-1.0 EU/dL [facility] Comment on above: Order Comment: Speci men Type: URINE SPECIMENOrdering Facility: [facility] Address: [address] [place] [address] Performed By: #### 2 4356-8, 630-4 ####[facility] LABCLIA [id number] [place] [address] [place] WBC LM.HPF (Urine sed) [#/Area] /[HPF] Abnormal 0-5 /HPF [facility] Comment on above: Order Comment: Speci men Type: URINE SPECIMENOrdering Facility: [facility] Address: [address] [place] [address] Performed By: #### 2 4356-8, 630-4 ####[facility] LABCLIA [id number] [place] [address] [place] Yeast.budding LM.HPF (Urine sed) [#/Area] Present Abnormal None Seen [facility] Comment on above: Order Comment: Speci men Type: URINE SPECIMENOrdering Facility: [facility] Address: [address] [place] [address] Performed By: #### 2 4356-8, 630-4 ####[facility] LABIA [id number] [place] [address] [place] Basic metabolic 2000 panelon 11-17-2024 Anion gap [Moles/Vol] 10 mmol/L Normal 8-15 [facility] Comment on above: Order Comment: Speci men Type: BLOOD SPECIMENOrdering Facility: [facility] Address: [address] [place] [address] Performed By: #### 2 4321-2, 14392-5, 2777-1 ####[facility] LABCLIA [id number] [place] [address] [place] Calcium [Mass/Vol] 8.9 mg/dL Normal 8.5-10.2 [facility] Comment on above: Order Comment: Speci men Type: BLOOD SPECIMENOrdering Facility: [facility] Address: [address] [place] [address] Performed By: #### 2 4321-2, 10418-9, 2777-1 ####[facility] LABIA [id number] [address] [address] [place] Chloride [Moles/Vol] 105 mmol/L Normal 98-107 [facility] Comment on above: Order Comment: Speci men Type: BLOOD SPECIMENOrdering Facility: [facility] Address: [address] [place] [address] Performed By: #### 2 4321-2, 84262-3, 2777-1 ####[facility] [id number] [place] [address] [place] CO2 [Moles/Vol] 17 mmol/L Low 22-30 [facility] Comment on above: Order Comment: Speci men Type: BLOOD SPECIMENOrdering Facility: [facility] Address: [address] [place] [address] Performed By: #### 2 4321-2, 65536-1, 2777-1 ####[facility] [id number] [place] [address] [place] Creatinine [Mass/Vol] 0.77 mg/dL Normal 0.73-1.22 [facility] Comment on above: Order Comment: Speci men Type: BLOOD SPECIMENOrdering Facility: [facility] Address: [address] [place] [address] Performed By: #### 2 4321-2, 37568-7, 2777-1 ####[facility] [id number] [place] [address] [place] Creatinine and Glomerular filtration rate.predicted panel (S/P/Bld) 104 mL/min/1.73m??? Normal >=60 [facility] Comment on above: Order Comment: Speci men Type: BLOOD SPECIMENOrdering Facility: [facility] Address: [address] [place] [address] Result Comment: Patric mated Glomerular Filtration Rate [...] actual GFR. Performed By: #### 2 4321-2, 97398-2, 2776-08 ####[facility] LABCLIA [id number] [address] [address] [place] Glucose [Mass/Vol] 291 mg/dL High 74-99 [facility] Comment on above: Order Comment: Ezekiel ramirez Type: BLOOD SPECIMENOrdering Facility: [facility] Address: [address] [place] [address] Result Comment: The [place] [employer] (ADA) provides guidance for cutoff [...] Standards of Medical Care in Diabetes 2016, [place] [employer]. Diabetes Care. 2016.39(Suppl 1). Performed By: #### 2 4321-2, 93845-9, 2776-08 ####[facility] LABCLIA [id number] [address] [address] [place] Potassium [Moles/Vol] 4.5 mmol/L Normal 3.7-5.1 [facility] Comment on above: Order Comment: Ezekiel ramirez Type: BLOOD SPECIMENOrdering Facility: [facility] Address: [address] [place] [id number] Performed By: #### 2 4321-2, 00961-1, 2776-08 ####[facility] LABCLIA [id number] [address] [address] [place] Sodium [Moles/Vol] 132 mmol/L Low 136-144 [facility] Comment on above: Order Comment: Speci men Type: BLOOD SPECIMENOrdering Facility: [facility] Address: [address] [place] [address] Performed By: #### 2 4321-2, 82504-8, 2777-1 ####[facility] LABCLIA [id number] [place] [address] [place] Urea nitrogen [Mass/Vol] 9 mg/dL Normal 9-24 [facility] Comment on above: Order Comment: Speci men Type: BLOOD SPECIMENOrdering Facility: [facility] Address: [address] [place] [address] Performed By: #### 2 4321-2, 60924-0, 2777-1 ####[facility] LABCLIA [id number] [place] [address] [place] CASE MANAGEMon 11-17-2024 CASE MANAGEM Normal [facility] CBC W Auto Differential pane l (Bld)on 11-17-2024 Basophils (Bld) [#/Vol] 10*3/uL Normal <0.11 [facility] Comment on above: Order Comment: Speci men Type: BLOOD SPECIMENOrdering Facility: [facility] Address: [address] [place] [address] Performed By: #### 5 7021-8 ####[facility] LABCLIA [id number] [place] [address] [place] Basophils/100 WBC (Bld) 0.0 % Normal [facility] Comment on above: Order Comment: Speci men Type: BLOOD SPECIMENOrdering Facility: [facility] Address: [address] [place] [address] Performed By: #### 5 7021-8 ####[facility] LABCLIA [id number] [place] [address] [place] Differential cell count method Nom (Bld) Auto Normal [facility] Comment on above: Order Comment: Speci men Type: BLOOD SPECIMENOrdering Facility: [facility] Address: [address] [place] [address] Performed By: #### 5 7021-8 ####[facility] LABCLIA [id number] [place] [address] [place] Eosinophils (Bld) [#/Vol] 10*3/uL Normal <0.46 [facility] Comment on above: Order Comment: Speci men Type: BLOOD SPECIMENOrdering Facility: [facility] Address: [address] [place] [address] Performed By: #### 5 7021-8 ####[facility] LABCLIA [id number] [place] [address] [place] Eosinophils/100 WBC (Bld) 0.0 % Normal [facility] Comment on above: Order Comment: Speci men Type: BLOOD SPECIMENOrdering Facility: [facility] Address: [address] [place] [address] Performed By: #### 5 7021-8 ####[facility] LABIA [id number] [place] [address] [place] Erythrocyte distribution width (RBC) [Ratio] 16.9 % High 11.5-15.0 [facility] Comment on above: Order Comment: Speci men Type: BLOOD SPECIMENOrdering Facility: [facility] Address: [address] [place] [address] Performed By: #### 5 7021-8 ####[facility] LABCLIA [id number] [place] [address] [place] Hematocrit (Bld) [Volume fraction] 22.7 % Low 39.0-51.0 [facility] Comment on above: Order Comment: Speci men Type: BLOOD SPECIMENOrdering Facility: [facility] Address: [address] [place] [address] Performed By: #### 5 7021-8 ####[facility] LABCLIA [id number] [place] [address] [place] Hemoglobin (Bld) [Mass/Vol] 7.7 g/dL Low 13.0-17.0 [facility] Comment on above: Order Comment: Speci men Type: BLOOD SPECIMENOrdering Facility: [facility] Address: [address] [place] [address] Performed By: #### 5 7021-8 ####[facility] LABCLIA [id number] [place] [address] [place] Immature granulocytes (Bld) [#/Vol] 0.03 10*3/uL Normal <0.10 [facility] Comment on above: Order Comment: Speci men Type: BLOOD SPECIMENOrdering Facility: [facility] Address: [address] [place] [address] Performed By: #### 5 7021-8 ####[facility] LABIA [id number] [place] [address] [place] Immature granulocytes/100 WBC (Bld) 0.9 % Normal [facility] Comment on above: Order Comment: Speci men Type: BLOOD SPECIMENOrdering Facility: [facility] Address: [address] [place] [address] Performed By: #### 5 7021-8 ####[facility] LABCLIA [id number] [place] [address] [place] Lymphocytes (Bld) [#/Vol] 0.28 10*3/uL Low 1.00-4.00 [facility] Comment on above: Order Comment: Speci men Type: BLOOD SPECIMENOrdering Facility: [facility] Address: [address] [place] [address] Performed By: #### 5 7021-8 ####[facility] LABIA [id number] [place] [address] [place] Lymphocytes/100 WBC (Bld) 8.3 % Normal [facility] Comment on above: Order Comment: Speci men Type: BLOOD SPECIMENOrdering Facility: [facility] Address: [address] [place] [address] Performed By: #### 5 7021-8 ####[facility] LABIA [id number] [place] [address] [place] MCH (RBC) [Entitic mass] 31.7 pg Normal 26.0-34.0 [facility] Comment on above: Order Comment: Speci men Type: BLOOD SPECIMENOrdering Facility: [facility] Address: [address] [place] [address] Performed By: #### 5 7021-8 ####[facility] LABIA [id number] [place] [address] [place] MCHC (RBC) [Mass/Vol] 33.9 g/dL Normal 30.5-36.0 [facility] Comment on above: Order Comment: Speci men Type: BLOOD SPECIMENOrdering Facility: [facility] Address: [address] [place] [address] Performed By: #### 5 7021-8 ####[facility] LABIA [id number] [place] [address] [place] MCV (RBC) [Entitic vol] 93.4 fL Normal 80.0-100.0 C [facility] Comment on above: Order Comment: Speci men Type: BLOOD SPECIMENOrdering Facility: [facility] Address: [address] [place] [address] Performed By: #### 5 7021-8 ####[facility] LABIA [id number] [place] [address] [place] Monocytes (Bld) [#/Vol] 0.17 10*3/uL Normal <0.87 [facility] Comment on above: Order Comment: Speci men Type: BLOOD SPECIMENOrdering Facility: [facility] Address: [address] [place] [address] Performed By: #### 5 7021-8 ####[facility] LABCLIA [id number] [place] [address] [place] Monocytes/100 WBC (Bld) 5.0 % Normal [facility] Comment on above: Order Comment: Speci men Type: BLOOD SPECIMENOrdering Facility: [facility] Address: [address] [place] [address] Performed By: #### 5 7021-8 ####[facility] LABCLIA [id number] [place] [address] [place] Neutrophils (Bld) [#/Vol] 2.89 10*3/uL Normal 1.45-7.50 [facility] Comment on above: Order Comment: Speci men Type: BLOOD SPECIMENOrdering Facility: [facility] Address: [address] [place] [address] Performed By: #### 5 7021-8 ####[facility] LABCLIA [id number] [place] [address] [place] Neutrophils/100 WBC (Bld) 85.8 % Normal [facility] Comment on above: Order Comment: Speci men Type: BLOOD SPECIMENOrdering Facility: [facility] Address: [address] [place] [address] Performed By: #### 5 7021-8 ####[facility] LABCLIA [id number] [place] [id number] [place] Nucleated RBC (Bld) [#/Vol] 10*3/uL Normal <0.01 [facility] Comment on above: Order Comment: Speci men Type: BLOOD SPECIMENOrdering Facility: [facility] Address: [address] [place] [address] Performed By: #### 5 7021-8 ####[facility] LABCLIA [id number] [address] [address] [place] Nucleated RBC/100 WBC (Bld) [Ratio] 0.0 /100 WBC Normal [facility] Comment on above: Order Comment: Speci men Type: BLOOD SPECIMENOrdering Facility: [facility] Address: [address] [place] [address] Performed By: #### 5 7021-8 ####[facility] LABCLIA [id number] [place] [address] [place] Platelet mean volume (Bld) [Entitic vol] 12.0 fL Normal 9.0-12.7 [facility] Comment on above: Order Comment: Speci men Type: BLOOD SPECIMENOrdering Facility: [facility] Address: [address] [place] [address] Performed By: #### 5 7021-8 ####[facility] LABCLIA [id number] [place] [address] [place] Platelets (Bld) [#/Vol] 57 10*3/uL Low 150-400 C [facility] Comment on above: Order Comment: Speci men Type: BLOOD SPECIMENOrdering Facility: [facility] Address: [address] [place] [address] Performed By: #### 5 7021-8 ####[facility] LABIA [id number] [place] [address] [place] RBC (Bld) [#/Vol] 2.43 10*6/uL Low 4.20-6.00 [facility] Comment on above: Order Comment: Speci men Type: BLOOD SPECIMENOrdering Facility: [facility] Address: [address] [place] [address] Performed By: #### 5 7021-8 ####[facility] LABCLIA [id number] [place] [address] [place] WBC (Bld) [#/Vol] 3.37 10*3/uL Low 3.70-11.00 [facility] Comment on above: Order Comment: Speci men Type: BLOOD SPECIMENOrdering Facility: [facility] Address: [address] [place] [address] Performed By: #### 5 7021-8 ####[facility] [id number] [place] [address] [place] CONSULT PROGon 11-17-2024 CONSULT PROG Normal [facility] Fact Xa PPP-aCncon Coagulation factor X activated act Coag Qn (PPP) <0.10 Normal <0.10 [facility] Comment on above: Order Comment: Speci men Type: BLOOD SPECIMENOrdering Facility: [facility] Address: [address] [place] [address] Result Comment: The recommended therapeutic range for treatment of venous and arterial thrombosis with intravenous unfractionated heparin is an anti Xa activity level of 0.3 to 0.7 IU/mL. In patients with concomitant therapy with thrombolytic agents and/or platelet glycoprotein IIb/IIIa antagonists, the recommended therapeutic range is an anti Xa activity level of 0.2 to 0.5 IU/mL. Performed By: #### 3 217-7 ####[facility] [id number] [place] [address] [place] Fibrinogen PPP-mCncon 2024 Fibrinogen Coag (PPP) [Mass/Vol] 114 mg/dL Low 200-400 [facility] Comment on above: Order Comment: Speci men Type: BLOOD SPECIMENOrdering Facility: [facility] Address: [address] [place] [address] Performed By: #### 3 255-7, 23421-5 ####[facility] [id number] [place] [address] [place] Hepatic function 2000 panelo n 11-17-2024 Albumin [Mass/Vol] 2.7 g/dL Low 3.9-4.9 [facility] Comment on above: Order Comment: Speci men Type: BLOOD SPECIMENOrdering Facility: [facility] Address: [address] [place] [address] Performed By: #### 2 4321-2, 31851-5, 277-1 ####[facility] LABCLIA [id number] [address] [address] [place] ALP [Catalytic activity/Vol] 276 U/L High 38-113 [facility] Comment on above: Order Comment: Speci men Type: BLOOD SPECIMENOrdering Facility: [facility] Address: [address] [place] [address] Performed By: #### 2 4321-2, 63859-0, 277- ####[facility] LABCLIA [id number] [place] [id number] [place] ALT [Catalytic activity/Vol] 35 U/L Normal 10-54 [facility] Comment on above: Order Comment: Speci men Type: BLOOD SPECIMENOrdering Facility: [facility] Address: [address] [place] [address] Performed By: #### 2 4321-2, 48850-4, 2776- ####[facility] LABIA [id number] [address] [place] AST [Catalytic activity/Vol] 80 U/L High 14-40 [facility] Comment on above: Order Comment: Speci men Type: BLOOD SPECIMENOrdering Facility: [facility] Address: [address] [place], [place] [address] Performed By: #### 2 4321-2, 01430-2, 2776- ####[facility] LABIA [id number] [address] [address] [place] Bilirubin [Mass/Vol] 1.8 mg/dL High 0.2-1.3 [facility] Comment on above: Order Comment: Speci men Type: BLOOD SPECIMENOrdering Facility: [facility] Address: [address] [place], [place] [address] Performed By: #### 2 4321-2, 08621-1, 2777-1 ####[facility] LABIA [id number] [address] [address] [place] Bilirubin.conjugated [Mass/Vol] 1.0 mg/dL High <0.3 [facility] Comment on above: Order Comment: Speci men Type: BLOOD SPECIMENOrdering Facility: [facility] Address: [address] [place] [address] Performed By: #### 2 4321-2, 89634-1, 27702-01 ####[facility] LABIA [id number] [place] [address] [place] Protein [Mass/Vol] 5.2 g/dL Low 6.3-8.0 [facility] Comment on above: Order Comment: Speci men Type: BLOOD SPECIMENOrdering Facility: [facility] Address: [address] [place] [address] Performed By: #### 2 4321-2, 06903-0, 27702-01 ####[facility] [id number] [place] [address] [place] NUTRITIONon 11-17-2024 NUTRITION Normal [facility] PSA/PROSTATE SPECIFIC ANTIGE N SCREENINGon 11-17-2024 Prostate specific Ag [Mass/Vol] 0.52 ng/mL Normal <2.60 [facility] Comment on above: Order Comment: Speci men Type: BLOOD SPECIMENOrdering Facility: [facility] Address: [address] [place] [address] Result Comment: Tota l PSA test methodology used is the Electrochemiluminescence Immunoassay by [employer]. Total PSA values by differing methodologies cannot be interchanged. Performed By: #### P SAS1 ####[facility] LABIA [id number] [place] [id number] [place] PT panel Coag (PPP)on 2024 INR Coag (PPP) [Relative time] 2.0 {INR} High 0.9-1.3 [facility] Comment on above: Order Comment: Ezekiel ramirez Type: BLOOD SPECIMENOrdering Facility: [facility] Address: [address] [place] [address] Result Comment: Sarah min K Antagonist (VKA) Therapeutic Range: INR 2 to 3 (Target INR of 2.5)Note: For patients treated with VKA drugs, such as warfarin, the [place] [employer] 2012 Guideline recommends [...] of 3).Andrett GH, et al. Chest 2012, 141:7S-47SNishbethel RA, et al. [facility] 2017, 70: 252-289 Performed By: #### 3 255-7, 86672-4 ####[facility] LABIA [id number] [place] [address] [place] PT Coag (PPP) [Time] 20.6 s High 9.7-13.0 [facility] Comment on above: Order Comment: Ezekiel ramirez Type: BLOOD SPECIMENOrdering Facility: [facility] Address: [address] [place] [address] Performed By: #### 3 255-7, 20316-8 ####[facility] [id number] [place] [address] [place] PTT, ANTICOAGULANT THERAPYon 11-17-2024 aPTT Coag (PPP) [Time] 41.6 s High 23.0-32.4 [facility] Comment on above: Order Comment: Ezekiel ramirez Type: BLOOD SPECIMENOrdering Facility: [facility] Address: [address] [place] [address] Performed By: #### P TTAC ####[facility] LABIA [id number] [place] [id number] [place] Phosphate SerPl-ncon 11-17 Phosphate [Mass/Vol] 1.9 mg/dL Low 2.7-4.8 [facility] Comment on above: Order Comment: Speci men Type: BLOOD SPECIMENOrdering Facility: [facility] Address: [address] [place] [address] Performed By: #### 2 4321-2, 13194-0, 2777-1 ####[facility] [id number] [place] [address] [place] THERAPY NTon 11-17-2024 THERAPY NT Normal [facility] aPTT PPPon 11-17-2024 aPTT Coag (PPP) [Time] s High 23.0-32.4 [facility] Comment on above: Order Comment: Speci men Type: BLOOD SPECIMENOrdering Facility: [facility] Address: [address] [place] [address] Result Comment: Resu lt rechecked.Sample checked for clot. Performed By: #### 1 4979-9, PTTAC ####[facility] [id number] [place] [address] [place] ANES POSTPROC EVALon 025 ANES POSTPROC EVAL Normal [facility] ANES PRE-OPon 11-16-2024 ANES PRE-OP Normal [facility] Albumin Fld-ncon Albumin (Body fld) [Mass/Vol] 0.2 g/dL Normal See Comment [facility] Comment on above: Order Comment: Speci men Type: FLUID SPECIMENOrdering Facility: [facility] Address: [address] [place] [address] Result Comment: Body Fluid Albumin may be [...] document C49A. PAULETTE Diaz: Clinical Laboratory Standards [place]: 2007.2. Amy JACKSON. Serum to ascites albumin gradient. UpToDate. 2015. Accessed on November 15, 2015.This test was developed, and its performance characteristics determined by the [facility] Department of Pathology and Laboratory Medicine. It has not been cleared or approved by the FDA. The [facility] Department of Pathology and Laboratory Medicine is regulated under CLIA as qualified to perform high-complexity testing. This test is used for clinical purposes. It should not be regarded as investigational or for research. Performed By: #### 1 795-4, 2881-1, 1747-5 ####[facility] LABIA [id number] [place] [address] [place] Fluid Nom (Body fld) Ascites Fluid Normal C [facility] Comment on above: Order Comment: Speci men Type: FLUID SPECIMENOrdering Facility: [facility] Address: [address] [place] [address] Performed By: #### 1 795-4, 2881-1, 1747-5 ####[facility] LABIA [id number] [address] [address] [place] Amylase Fld-cCncon 5 Amylase (Body fld) [Catalytic activity/Vol] 17 U/L Normal See Comment [facility] Comment on above: Order Comment: Speci men Type: FLUID SPECIMENOrdering Facility: [facility] Address: [address] [place] [address] Result Comment: PLEU RAL FLUIDS:Amylase measurement in [...] document C49-A. PAULETTE Diaz: Clinical Laboratory Standards [place]; 2007.3. Kelby CONCEPCION, John BRAR, Star DJ. Use of cyst fluid CEA, CA19-9, and amylase for evaluation of pancreatic lesions. Clinical Biochemistry. 2009;42:3819-8416.This test was developed, and its performance characteristics determined by the [facility] Department of Pathology and Laboratory Medicine. It has not been cleared or approved by the FDA. The [facility] Department of Pathology and Laboratory Medicine is regulated under CLIA as qualified to perform high-complexity testing. This test is used for clinical purposes. It should not be regarded as investigational or for research. Performed By: #### 1 795-4, 2881-1, 1747-5 ####[facility] LABCLIA [id number] [place] [address] [place] BODY FLUID CELL COUNTon 11-02 Clarity (Unsp spec) Clear Normal [facility] Comment on above: Order Comment: Speci men Type: FLUID SPECIMENOrdering Facility: [facility] Address: [address] [place] [address] Performed By: #### C CBF, [id number] ####[facility] LABCLIA [id number] [address] [place] [address] [place] Color (Body fld) Yellow Normal Yellow [facility] Comment on above: Order Comment: Speci men Type: FLUID SPECIMENOrdering Facility: [facility] Address: [address] [place] [address] Performed By: #### C CBF, [id number] ####[facility] LABCLIA [id number] [place] [address] [place] RBC Manual cnt (Body fld) [#/Vol] 3000 /uL High <2000 [facility] Comment on above: Order Comment: Speci men Type: FLUID SPECIMENOrdering Facility: [facility] Address: [address] [place] [address] Performed By: #### C CBF, [id number] ####[facility] LABCLIA [id number] [address] [place] Specimen source Nom (Body fld) Ascites Fluid Normal [facility] Comment on above: Order Comment: Speci men Type: FLUID SPECIMENOrdering Facility: [facility] Address: [address] [place] [address] Performed By: #### C CBF, [id number] ####[facility] LABCLIA [id number] [place] [address] [place] WBC Manual cnt (Body fld) [#/Vol] 58 /uL Normal <1000 [facility] Comment on above: Order Comment: Speci men Type: FLUID SPECIMENOrdering Facility: [facility] Address: [address] [place] [address] Performed By: #### C CBF, [id number] ####[facility] LABCLIA [id number] [place] [address] [place] Bacteria Fld Culton 11-17-19 25 Bacteria identified Cx Nom (Body fld) CULTURE, BODY FLD: No growth GRAM STAIN: No organisms seen Few Polymorphonuclear leukocytes Gram stain performed on cytospun specimen. Gram stain from primary specimen Normal [facility] Comment on above: Performed By: #### 6 35-3, 611-4 ####[facility] LABCLIA [id number] [address] [place] [address] [place] Bacteria Spec Anaerobe Culto n 11-16-2024 Bacteria identified Anaer cx Nom (Unsp spec) Negative Normal [facility] Comment on above: Performed By: #### 6 35-3, 611-4 ####[facility] LABCLIA [id number] [address] [place] [address] [place] Basic metabolic 2000 panelon 11-16-2024 Anion gap [Moles/Vol] 10 mmol/L Normal 8-15 [facility] Comment on above: Order Comment: Speci men Type: BLOOD SPECIMENOrdering Facility: [facility] Address: [address] [place] [address] Performed By: #### 2 4321-2, 94123-7, 277- ####[facility] LABCLIA [id number] [address] [address] [place] Calcium [Mass/Vol] 8.4 mg/dL Low 8.5-10.2 [facility] Comment on above: Order Comment: Speci men Type: BLOOD SPECIMENOrdering Facility: [facility] Address: [address] [place], [place] [address] Performed By: #### 2 4321-2, 90848-0, 277- ####[facility] LABCLIA [id number] [address] [address] [place] Chloride [Moles/Vol] 102 mmol/L Normal 98-107 [facility] Comment on above: Order Comment: Speci men Type: BLOOD SPECIMENOrdering Facility: [facility] Address: [address] [place], [place] [address] Performed By: #### 2 4321-2, 34740-5, 2777-1 ####[facility] LABCLIA [id number] [place] [id number] [place] CO2 [Moles/Vol] 18 mmol/L Low 22-30 [facility] Comment on above: Order Comment: Speci men Type: BLOOD SPECIMENOrdering Facility: [facility] Address: [address] [place] [address] Performed By: #### 2 4321-2, 56530-5, 2776- ####[facility] [id number] [place] [address] [place] Creatinine [Mass/Vol] 0.73 mg/dL Normal 0.73-1.22 [facility] Comment on above: Order Comment: Speci men Type: BLOOD SPECIMENOrdering Facility: [facility] Address: [address] [place] [address] Performed By: #### 2 4321-2, 70882-2, 2776-08 ####[facility] [id number] [place] [address] [place] Creatinine and Glomerular filtration rate.predicted panel (S/P/Bld) 105 mL/min/1.73m??? Normal >=60 [facility] Comment on above: Order Comment: Speci men Type: BLOOD SPECIMENOrdering Facility: [facility] Address: [address] [place] [address] Result Comment: Patric mated Glomerular Filtration Rate [...] actual GFR. Performed By: #### 2 4321-2, 71151-8, 2776- ####[facility] LABIA [id number] [address] [address] [place] Glucose [Mass/Vol] 181 mg/dL High 74-99 [facility] Comment on above: Order Comment: Speci men Type: BLOOD SPECIMENOrdering Facility: [facility] Address: [address] [place] [address] Result Comment: The [place] [employer] (ADA) provides guidance for cutoff [...] Standards of Medical Care in Diabetes 2016, [place] [employer]. Diabetes Care. 2016.39(Suppl 1). Performed By: #### 2 4321-2, 78082-4, 2777-1 ####[facility] LABCLIA [id number] [place] [address] [place] Potassium [Moles/Vol] 3.6 mmol/L Low 3.7-5.1 [facility] Comment on above: Order Comment: Speci men Type: BLOOD SPECIMENOrdering Facility: [facility] Address: [address] [place] [address] Performed By: #### 2 4321-2, 54851-6, 2777- ####[facility] LABCLIA [id number] [place] [address] [place] Sodium [Moles/Vol] 130 mmol/L Low 136-144 [facility] Comment on above: Order Comment: Speci men Type: BLOOD SPECIMENOrdering Facility: [facility] Address: [address] [place] [address] Performed By: #### 2 4321-2, 47861-5, 2777-1 ####[facility] LABCLIA [id number] [place] [address] [place] Urea nitrogen [Mass/Vol] 9 mg/dL Normal 9-24 [facility] Comment on above: Order Comment: Speci men Type: BLOOD SPECIMENOrdering Facility: [facility] Address: [address] [place] [address] Performed By: #### 2 4321-2, 60798-9, 2777-1 ####[facility] LABCLIA [id number] [place] [address] [place] CBC W Auto Differential pane l (Bld)on 11-16-2024 Basophils (Bld) [#/Vol] 0.05 10*3/uL Normal <0.11 [facility] Comment on above: Order Comment: Speci men Type: BLOOD SPECIMENOrdering Facility: [facility] Address: [address] [place] [address] Performed By: #### 5 7021-8 ####[facility] LABCLIA [id number] [place] [address] [place] Basophils/100 WBC (Bld) 0.8 % Normal C [facility] Comment on above: Order Comment: Speci men Type: BLOOD SPECIMENOrdering Facility: [facility] Address: [address] [place] [address] Performed By: #### 5 7021-8 ####[facility] LABCLIA [id number] [place] [address] [place] Differential cell count method Nom (Bld) Auto Normal [facility] Comment on above: Order Comment: Speci men Type: BLOOD SPECIMENOrdering Facility: [facility] Address: [address] [place] [address] Performed By: #### 5 7021-8 ####[facility] LABCLIA [id number] [place] [address] [place] Eosinophils (Bld) [#/Vol] 0.22 10*3/uL Normal <0.46 [facility] Comment on above: Order Comment: Speci men Type: BLOOD SPECIMENOrdering Facility: [facility] Address: [address] [place] [address] Performed By: #### 5 7021-8 ####[facility] LABCLIA [id number] [place] [address] [place] Eosinophils/100 WBC (Bld) 3.6 % Normal [facility] Comment on above: Order Comment: Speci men Type: BLOOD SPECIMENOrdering Facility: [facility] Address: [address] [place] [address] Performed By: #### 5 7021-8 ####[facility] LABCLIA [id number] [place] [address] [place] Erythrocyte distribution width (RBC) [Ratio] 16.7 % High 11.5-15.0 [facility] Comment on above: Order Comment: Speci men Type: BLOOD SPECIMENOrdering Facility: [facility] Address: [address] [place] [address] Performed By: #### 5 7021-8 ####[facility] LABIA [id number] [place] [address] [place] Hematocrit (Bld) [Volume fraction] 24.0 % Low 39.0-51.0 [facility] Comment on above: Order Comment: Speci men Type: BLOOD SPECIMENOrdering Facility: [facility] Address: [address] [place] [address] Performed By: #### 5 7021-8 ####[facility] LABCLIA [id number] [place] [address] [place] Hemoglobin (Bld) [Mass/Vol] 8.3 g/dL Low 13.0-17.0 [facility] Comment on above: Order Comment: Speci men Type: BLOOD SPECIMENOrdering Facility: [facility] Address: [address] [place] [address] Performed By: #### 5 7021-8 ####[facility] LABCLIA [id number] [place] [address] [place] Immature granulocytes (Bld) [#/Vol] 0.05 10*3/uL Normal <0.10 [facility] Comment on above: Order Comment: Speci men Type: BLOOD SPECIMENOrdering Facility: [facility] Address: [address] [place] [address] Performed By: #### 5 7021-8 ####[facility] LABCLIA [id number] [place] [address] [place] Immature granulocytes/100 WBC (Bld) 0.8 % Normal [facility] Comment on above: Order Comment: Speci men Type: BLOOD SPECIMENOrdering Facility: [facility] Address: [address] [place] [address] Performed By: #### 5 7021-8 ####[facility] LABCLIA [id number] [place] [address] [place] Lymphocytes (Bld) [#/Vol] 0.75 10*3/uL Low 1.00-4.00 [facility] Comment on above: Order Comment: Speci men Type: BLOOD SPECIMENOrdering Facility: [facility] Address: [address] [place] [address] Performed By: #### 5 7021-8 ####[facility] LABCLIA [id number] [place] [address] [place] Lymphocytes/100 WBC (Bld) 12.4 % Normal [facility] Comment on above: Order Comment: Speci men Type: BLOOD SPECIMENOrdering Facility: [facility] Address: [address] [place] [address] Performed By: #### 5 7021-8 ####[facility] LABCLIA [id number] [place] [address] [place] MCH (RBC) [Entitic mass] 31.9 pg Normal 26.0-34.0 [facility] Comment on above: Order Comment: Speci men Type: BLOOD SPECIMENOrdering Facility: [facility] Address: [address] [place] [address] Performed By: #### 5 7021-8 ####[facility] LABCLIA [id number] [place] [address] [place] MCHC (RBC) [Mass/Vol] 34.6 g/dL Normal 30.5-36.0 [facility] Comment on above: Order Comment: Speci men Type: BLOOD SPECIMENOrdering Facility: [facility] Address: [address] [place] [address] Performed By: #### 5 7021-8 ####[facility] LABCLIA [id number] [place] [address] [place] MCV (RBC) [Entitic vol] 92.3 fL Normal 80.0-100.0 C [facility] Comment on above: Order Comment: Speci men Type: BLOOD SPECIMENOrdering Facility: [facility] Address: [address] [place] [address] Performed By: #### 5 7021-8 ####[facility] LABCLIA [id number] [place] [address] [place] Monocytes (Bld) [#/Vol] 0.68 10*3/uL Normal <0.87 [facility] Comment on above: Order Comment: Speci men Type: BLOOD SPECIMENOrdering Facility: [facility] Address: [address] [place] [address] Performed By: #### 5 7021-8 ####[facility] LABCLIA [id number] [place] [address] [place] Monocytes/100 WBC (Bld) 11.3 % Normal C [facility] Comment on above: Order Comment: Speci men Type: BLOOD SPECIMENOrdering Facility: [facility] Address: [address] [place] [address] Performed By: #### 5 7021-8 ####[facility] LABCLIA [id number] [address] [address] [place] Neutrophils (Bld) [#/Vol] 4.28 10*3/uL Normal 1.45-7.50 [facility] Comment on above: Order Comment: Speci men Type: BLOOD SPECIMENOrdering Facility: [facility] Address: [address] [place] [address] Performed By: #### 5 7021-8 ####[facility] LABCLIA [id number] [place] [address] [place] Neutrophils/100 WBC (Bld) 71.1 % Normal [facility] Comment on above: Order Comment: Speci men Type: BLOOD SPECIMENOrdering Facility: [facility] Address: [address] [place] [address] Performed By: #### 5 7021-8 ####[facility] LABCLIA [id number] [place] [address] [place] Nucleated RBC (Bld) [#/Vol] 10*3/uL Normal <0.01 [facility] Comment on above: Order Comment: Speci men Type: BLOOD SPECIMENOrdering Facility: [facility] Address: [address] [place] [address] Performed By: #### 5 7021-8 ####[facility] LABCLIA [id number] [place] [address] [place] Nucleated RBC/100 WBC (Bld) [Ratio] 0.0 /100 WBC Normal [facility] Comment on above: Order Comment: Speci men Type: BLOOD SPECIMENOrdering Facility: [facility] Address: [address] [place] [address] Performed By: #### 5 7021-8 ####[facility] LABCLIA [id number] [place] [id number] [place] Platelet mean volume (Bld) [Entitic vol] 11.8 fL Normal 9.0-12.7 [facility] Comment on above: Order Comment: Speci men Type: BLOOD SPECIMENOrdering Facility: [facility] Address: [address] [place] [address] Performed By: #### 5 7021-8 ####[facility] LABCLIA [id number] [place] [address] [place] Platelets (Bld) [#/Vol] 59 10*3/uL Low 150-400 C [facility] Comment on above: Order Comment: Speci men Type: BLOOD SPECIMENOrdering Facility: [facility] Address: [address] [place] [address] Result Comment: No c lot detected.Results checked and verified. Performed By: #### 5 7021-8 ####[facility] LABCLIA [id number] [place] [address] [place] RBC (Bld) [#/Vol] 2.60 10*6/uL Low 4.20-6.00 [facility] Comment on above: Order Comment: Speci men Type: BLOOD SPECIMENOrdering Facility: [facility] Address: [address] [place] [address] Performed By: #### 5 7021-8 ####[facility] LABIA [id number] [place] [address] [place] WBC (Bld) [#/Vol] 6.03 10*3/uL Normal 3.70-11.00 [facility] Comment on above: Order Comment: Speci men Type: BLOOD SPECIMENOrdering Facility: [facility] Address: [address] [place] [address] Performed By: #### 5 7021-8 ####[facility] LABIA [id number] [place] [address] [place] CONSULT PROGon 11-16-2024 CONSULT PROG Normal [facility] CYTOLOGY NON-GYNon 5 AP DISCLAIMER Normal [facility] Comment on above: Order Comment: Speci men Type: FLUID SPECIMENOrdering Facility: [facility] Address: [address] [place] [address] Result Comment: Shellie Fox Test (LDT) Disclaimer:Performance characteristics of immunohistochemical, immunofluorescent, and chromogenic in-situ hybridization tests have been determined by the performing laboratory within [facility] Pathology and Laboratory Medicine Department ([facility], [facility], [facility], [facility], [facility], [facility], or [facility]) in a manner consistent with CLIA requirements. One or more of these tests may not have been cleared or approved by the FDA. [facility] is regulated under CLIA as qualified to perform high-complexity testing. These tests are used for clinical purposes. These should not be regarded as investigational or for research. Positive and negative controls stain appropriately. Performed By: #### C YTONON ####[facility] LABCLIA [id number] [place] [address] [place] CASE REPORT Normal [facility] Comment on above: Order Comment: Speci men Type: FLUID SPECIMENOrdering Facility: [facility] Address: [address] [place] [address] Result Comment: [facility] Cytology Report Case: [id number] Provider: Young Cruz MD Collected: 11/16/2024 08:42 AMOrdering Location: [place] [address] Received: 11/16/2024 06:20 PMPathologist: Stefani Mcneal MDSpecimen: Peritoneal Fluid. Performed By: #### C YTONON ####[facility] LABCLIA [id number] [place] [address] [place] CLINICAL HISTORY Cirrhosis with ascites Normal [facility] Comment on above: Order Comment: Ezekiel ramirez Type: FLUID SPECIMENOrdering Facility: [facility] Address: [address] [place] [address] Performed By: #### C YTONON ####[facility] LABCLIA [id number] [place] [address] [place] FINAL DIAGNOSIS Normal [facility] Comment on above: Order Comment: Speci men Type: FLUID SPECIMENOrdering Facility: [facility] Address: [address] [place] [address] Result Comment: A - Peritoneal Fluid Negative for malignant cells. Chronic inflammation.The following cell blocks were associated with this case:A1 Cell Block, Alcohol Fixed at 1223 EDT Performed By: #### C YTONON ####[facility] LABCLIA [id number] [address] [place] FINAL PERFORMING LAB Normal [facility] Comment on above: Order Comment: Speci men Type: FLUID SPECIMENOrdering Facility: [facility] Address: [address] [place] [address] Result Comment: Tech nical component, automatic vulcanizing operator screening performed at: [facility], [address] [place] [address] CLIA: [id number] interpretation performed at: [facility], [address] [place] [address] CLIA# [id number] Director: Titi Voss MD Performed By: #### C YTONON ####[facility] LABCLIA [id number] [place] [address] [place] GROSS DESCRIPTION Normal [facility] Comment on above: Order Comment: Speci men Type: FLUID SPECIMENOrdering Facility: [facility] Address: [address] [place] [address] Result Comment: A. P eritoneal Fluid.1450 cc opaque red fluid . ThinPrep and Cell Block prepared. Performed By: #### C YTONON ####[facility] LABCLIA [id number] [place] [address] [place] ECG COMPLETEon 11-16-2024 ECG COMPLETE Normal [facility] Fibrinogen PPP-mCncon 2024 Fibrinogen Coag (PPP) [Mass/Vol] 127 mg/dL Low 200-400 [facility] Comment on above: Order Comment: Speci men Type: BLOOD SPECIMENOrdering Facility: [facility] Address: [address] [place] [address] Performed By: #### 3 255-7, 76935-6 ####[facility] LABCLIA [id number] [place] [address] [place] Hepatic function 2000 panelo n 11-16-2024 Albumin [Mass/Vol] 2.8 g/dL Low 3.9-4.9 [facility] Comment on above: Order Comment: Speci men Type: BLOOD SPECIMENOrdering Facility: [facility] Address: [address] [place] [address] Performed By: #### 2 4321-2, 50560-3, 2777-1 ####[facility] LABCLIA [id number] [place] [address] [place] ALP [Catalytic activity/Vol] 295 U/L High 38-113 [facility] Comment on above: Order Comment: Speci men Type: BLOOD SPECIMENOrdering Facility: [facility] Address: [address] [place] [address] Performed By: #### 2 4321-2, 84376-9, 2777-1 ####[facility] LABCLIA [id number] [place] [address] [place] ALT [Catalytic activity/Vol] 38 U/L Normal 10-54 [facility] Comment on above: Order Comment: Speci men Type: BLOOD SPECIMENOrdering Facility: [facility] Address: [address] [place] [address] Performed By: #### 2 4321-2, 58580-0, 2777-1 ####[facility] LABCLIA [id number] [place] [id number] [place] AST [Catalytic activity/Vol] 88 U/L High 14-40 [facility] Comment on above: Order Comment: Speci men Type: BLOOD SPECIMENOrdering Facility: [facility] Address: [address] [place] [address] Performed By: #### 2 4321-2, 28086-4, 2776-08 ####[facility] LABCLIA [id number] [place] [address] [place] Bilirubin [Mass/Vol] 1.8 mg/dL High 0.2-1.3 [facility] Comment on above: Order Comment: Speci men Type: BLOOD SPECIMENOrdering Facility: [facility] Address: [address] [place] [address] Performed By: #### 2 4321-2, 57202-2, 2776-08 ####[facility] LABCLIA [id number] [place] [address] [place] Bilirubin.conjugated [Mass/Vol] 0.9 mg/dL High <0.3 [facility] Comment on above: Order Comment: Speci men Type: BLOOD SPECIMENOrdering Facility: [facility] Address: [address] [place] [address] Performed By: #### 2 4321-2, 12133-5, 2776-08 ####[facility] LABIA [id number] [place] [address] [place] Protein [Mass/Vol] 5.5 g/dL Low 6.3-8.0 [facility] Comment on above: Order Comment: Speci men Type: BLOOD SPECIMENOrdering Facility: [facility] Address: [address] [place] [address] Performed By: #### 2 4321-2, 56907-3, 2776-08 ####[facility] LABCLIA [id number] [address] [address] [place] MANUAL DIFFERENTIAL, BODY FL UIDon 11-16-2024 DIF TTL, BODY FLUID 100 cells counted Normal [facility] Comment on above: Order Comment: Speci men Type: FLUID SPECIMENOrdering Facility: [facility] Address: [address] [place] [address] Performed By: #### C CBF, [id number] ####[facility] LABCLIA [id number] [address], [place] [address] [place] LYMPH%, BF 47 % High 18-36 [facility] Comment on above: Order Comment: Speci men Type: FLUID SPECIMENOrdering Facility: [facility] Address: [address] [place] [address] Performed By: #### C CBF, [id number] ####[facility] LABCLIA [id number] [address], [place] [address] [place] MACRO%, BF 6 % Low 64-80 [facility] Comment on above: Order Comment: Speci men Type: FLUID SPECIMENOrdering Facility: [facility] Address: [address] [place] [address] Performed By: #### C CBF, [id number] ####[facility] LABCLIA [id number] [address], [place] [address] [place] MESO %, BF 25 % High 0-2 [facility] Comment on above: Order Comment: Speci men Type: FLUID SPECIMENOrdering Facility: [facility] Address: [address] [place] [address] Performed By: #### C CBF, [id number] ####[facility] LABCLIA [id number] [address], [facility] [place] MONO% BF 8 % Normal [facility] Comment on above: Order Comment: Speci men Type: FLUID SPECIMENOrdering Facility: [facility] Address: [address] [place] [address] Performed By: #### C CBF, [id number] ####[facility] LABCLIA [id number] [address], [facility] [place] NEUT%, BF 14 % High 0-1 [facility] Comment on above: Order Comment: Speci men Type: FLUID SPECIMENOrdering Facility: [facility] Address: [address] [place] [address] Performed By: #### C CBF, [id number] ####[facility] LABCLIA [id number] [place] [address] [place] NURSING PROGon 11-16-2024 NURSING PROG Normal [facility] NURSING PROG Normal [facility] PT panel Coag (PPP)on 2024 INR Coag (PPP) [Relative time] 2.1 {INR} High 0.9-1.3 [facility] Comment on above: Order Comment: Ezekiel ramirez Type: BLOOD SPECIMENOrdering Facility: [facility] Address: [address] [place] [address] Result Comment: Sarah min K Antagonist (VKA) Therapeutic Range: INR 2 to 3 (Target INR of 2.5)Note: For patients treated with VKA drugs, such as warfarin, the [employer] 2012 Guideline recommends [...] al. Chest 2012, 141:7S-47SNishimnicolle RA, et al. JACC 2017, 70: 252-289 Performed By: #### 3 4528-0 ####[facility] LABCLIA [id number] [place] [id number] [place] PT Coag (PPP) [Time] 21.5 s High 9.7-13.0 [facility] Comment on above: Order Comment: Speci men Type: BLOOD SPECIMENOrdering Facility: [facility] Address: [address] [place] [address] Performed By: #### 3 4528-0 ####[facility] LABCLIA [id number] [place] [address] [place] INR Coag (PPP) [Relative time] 2.0 {INR} High 0.9-1.3 [facility] Comment on above: Order Comment: Speci men Type: BLOOD SPECIMENOrdering Facility: [facility] Address: [address] [place] [address] Result Comment: Sarah min K Antagonist (VKA) Therapeutic Range: INR 2 to 3 (Target INR of 2.5)Note: For patients treated with VKA drugs, such as warfarin, the [employer] 2012 Guideline recommends [...] al. Chest 2012, 141:7S-47SNishimura RA, et al. [facility] 2017, 70: 252-289 Performed By: #### 3 255-7, 72395-7 ####[facility] LABCLIA [id number] [place] [id number] [place] PT Coag (PPP) [Time] 20.3 s High 9.7-13.0 [facility] Comment on above: Order Comment: Speci men Type: BLOOD SPECIMENOrdering Facility: [facility] Address: [address] [place] [address] Performed By: #### 3 255-7, 78816-7 ####[facility] LABCLIA [id number] [place] [address] [place] Phosphate SerPl-mCncon 11-16 Phosphate [Mass/Vol] 2.3 mg/dL Low 2.7-4.8 [facility] Comment on above: Order Comment: Speci men Type: BLOOD SPECIMENOrdering Facility: [facility] Address: [address] [place] [address] Performed By: #### 2 4321-2, 09722-9, 2777-1 ####[facility] [id number] [place] [address] [place] Prot Fld-[facility] 11-16-2024 Protein (Body fld) [Mass/Vol] 0.5 g/dL Normal See Comment [facility] Comment on above: Order Comment: Speci men Type: FLUID SPECIMENOrdering Facility: [facility] Address: [address] [place] [address] Result Comment: Sero us fluids: Effusions are [...] document C49A. PAULETTE Diaz: Clinical Laboratory Standards [place]: 2007. Performed By: #### 1 795-4, 2881-1, 1747-5 ####[facility] LABIA [id number] [place] [id number] [place] THERAPY NTon 11-16-2024 THERAPY NT Normal [facility] THERAPY NT Normal [facility] BLOOD TB SCREENon 11-15-2024 M. tuberculosis tuberculin stim IFN-g Ql (Bld) Indeterminate Normal [facility] Comment on above: Order Comment: Speci men Type: BLOOD SPECIMENOrdering Facility: [facility] Address: [address] [place] [address] Performed By: #### I NFTBP ####[facility] LABCLIA [id number] [place] [address] [place] MITOGEN MINUS NIL 0.25 IU/mL Low >=0.50 [facility] Comment on above: Order Comment: Speci men Type: BLOOD SPECIMENOrdering Facility: [facility] Address: [address] [place] [address] Performed By: #### I NFTBP ####[facility] LABCLIA [id number] [place] [address] [place] TB GAMMA INTERPRETATION Normal [facility] Comment on above: Order Comment: Speci men Type: BLOOD SPECIMENOrdering Facility: [facility] Address: [address] [place] [address] Performed By: #### I NFTBP ####[facility] LABCLIA [id number] [address] [place] TB NIL 0.01 IU/mL Normal <=8.00 [facility] Comment on above: Order Comment: Speci men Type: BLOOD SPECIMENOrdering Facility: [facility] Address: [address] [place] [address] Performed By: #### I NFTBP ####[facility] LABCLIA [id number] [place] [address] [place] TB1 AG MINUS NIL 0.00 IU/mL Normal <0.35 [facility] Comment on above: Order Comment: Speci men Type: BLOOD SPECIMENOrdering Facility: [facility] Address: [address] [place] [address] Performed By: #### I NFTBP ####[facility] LABCLIA [id number] [place] [address] [place] TB2 AG MINUS NIL 0.01 IU/mL Normal <0.35 [facility] Comment on above: Order Comment: Speci men Type: BLOOD SPECIMENOrdering Facility: [facility] Address: [address] [place] [address] Performed By: #### I NFTBP ####[facility] LABCLIA [id number] [place] [address] [place] CASE MANAGEMon 11-15-2024 CASE MANAGEM Normal [facility] CASE MANAGEM Normal [facility] CBC W Auto Differential pane l (Bld)on 11-15-2024 Basophils (Bld) [#/Vol] 0.05 10*3/uL Normal <0.11 [facility] Comment on above: Order Comment: Speci men Type: BLOOD SPECIMENOrdering Facility: [facility] Address: [address] [place] [address] Performed By: #### 5 7021-8 ####[facility] LABIA [id number] [place] [address] [place] Basophils/100 WBC (Bld) 0.8 % Normal [facility] Comment on above: Order Comment: Speci men Type: BLOOD SPECIMENOrdering Facility: [facility] Address: [address] [place] [address] Performed By: #### 5 7021-8 ####[facility] LABCLIA [id number] [place] [address] [place] Differential cell count method Nom (Bld) Auto Normal [facility] Comment on above: Order Comment: Speci men Type: BLOOD SPECIMENOrdering Facility: [facility] Address: [address] [place] [address] Performed By: #### 5 7021-8 ####[facility] LABIA [id number] [place] [address] [place] Eosinophils (Bld) [#/Vol] 0.28 10*3/uL Normal <0.46 [facility] Comment on above: Order Comment: Speci men Type: BLOOD SPECIMENOrdering Facility: [facility] Address: [address] [place] [address] Performed By: #### 5 7021-8 ####[facility] LABCLIA [id number] [place] [address] [place] Eosinophils/100 WBC (Bld) 4.6 % Normal [facility] Comment on above: Order Comment: Speci men Type: BLOOD SPECIMENOrdering Facility: [facility] Address: [address] [place] [address] Performed By: #### 5 7021-8 ####[facility] LABCLIA [id number] [address] [place] Erythrocyte distribution width (RBC) [Ratio] 16.8 % High 11.5-15.0 [facility] Comment on above: Order Comment: Speci men Type: BLOOD SPECIMENOrdering Facility: [facility] Address: [address] [place] [address] Performed By: #### 5 7021-8 ####[facility] LABCLIA [id number] [address] [place] Hematocrit (Bld) [Volume fraction] 22.9 % Low 39.0-51.0 [facility] Comment on above: Order Comment: Speci men Type: BLOOD SPECIMENOrdering Facility: [facility] Address: [address] [place] [address] Performed By: #### 5 7021-8 ####[facility] LABCLIA [id number] [address] [place] Hemoglobin (Bld) [Mass/Vol] 7.6 g/dL Low 13.0-17.0 [facility] Comment on above: Order Comment: Speci men Type: BLOOD SPECIMENOrdering Facility: [facility] Address: [address] [place] [address] Performed By: #### 5 7021-8 ####[facility] LABCLIA [id number] [address], [place] [address] [place] Immature granulocytes (Bld) [#/Vol] 0.03 10*3/uL Normal <0.10 [facility] Comment on above: Order Comment: Speci men Type: BLOOD SPECIMENOrdering Facility: [facility] Address: [address] [place] [address] Performed By: #### 5 7021-8 ####[facility] LABCLIA [id number] [place] [address] [place] Immature granulocytes/100 WBC (Bld) 0.5 % Normal [facility] Comment on above: Order Comment: Speci men Type: BLOOD SPECIMENOrdering Facility: [facility] Address: [address] [place] [address] Performed By: #### 5 7021-8 ####[facility] LABCLIA [id number] [address], [place] [address] [place] Lymphocytes (Bld) [#/Vol] 0.70 10*3/uL Low 1.00-4.00 [facility] Comment on above: Order Comment: Speci men Type: BLOOD SPECIMENOrdering Facility: [facility] Address: [address] [place] [address] Performed By: #### 5 7021-8 ####[facility] LABCLIA [id number] [place] [id number] [place] Lymphocytes/100 WBC (Bld) 11.5 % Normal [facility] Comment on above: Order Comment: Speci men Type: BLOOD SPECIMENOrdering Facility: [facility] Address: [address] [place] [address] Performed By: #### 5 7021-8 ####[facility] LABCLIA [id number] [place] [address] [place] MCH (RBC) [Entitic mass] 30.6 pg Normal 26.0-34.0 [facility] Comment on above: Order Comment: Speci men Type: BLOOD SPECIMENOrdering Facility: [facility] Address: [address] [place] [address] Performed By: #### 5 7021-8 ####[facility] LABCLIA [id number] [place] [address] [place] MCHC (RBC) [Mass/Vol] 33.2 g/dL Normal 30.5-36.0 [facility] Comment on above: Order Comment: Speci men Type: BLOOD SPECIMENOrdering Facility: [facility] Address: [address] [place] [address] Performed By: #### 5 7021-8 ####[facility] LABCLIA [id number] [place] [address] [place] MCV (RBC) [Entitic vol] 92.3 fL Normal 80.0-100.0 [facility] Comment on above: Order Comment: Speci men Type: BLOOD SPECIMENOrdering Facility: [facility] Address: [address] [place] [address] Performed By: #### 5 7021-8 ####[facility] LABIA [id number] [place] [address] [place] Monocytes (Bld) [#/Vol] 0.73 10*3/uL Normal <0.87 [facility] Comment on above: Order Comment: Speci men Type: BLOOD SPECIMENOrdering Facility: [facility] Address: [address] [place] [address] Performed By: #### 5 7021-8 ####[facility] LABCLIA [id number] [address] [place] Monocytes/100 WBC (Bld) 12.0 % Normal C [facility] Comment on above: Order Comment: Speci men Type: BLOOD SPECIMENOrdering Facility: [facility] Address: [address] [place] [address] Performed By: #### 5 7021-8 ####[facility] LABCLIA [id number] [place] [address] [place] Neutrophils (Bld) [#/Vol] 4.30 10*3/uL Normal 1.45-7.50 [facility] Comment on above: Order Comment: Speci men Type: BLOOD SPECIMENOrdering Facility: [facility] Address: [address] [place] [address] Performed By: #### 5 7021-8 ####[facility] LABCLIA [id number] [place] [address] [place] Neutrophils/100 WBC (Bld) 70.6 % Normal [facility] Comment on above: Order Comment: Speci men Type: BLOOD SPECIMENOrdering Facility: [facility] Address: [address] [place] [address] Performed By: #### 5 7021-8 ####[facility] LABCLIA [id number] [place] [address] [place] Nucleated RBC (Bld) [#/Vol] 10*3/uL Normal <0.01 [facility] Comment on above: Order Comment: Speci men Type: BLOOD SPECIMENOrdering Facility: [facility] Address: [address] [place] [address] Performed By: #### 5 7021-8 ####[facility] LABCLIA [id number] [place] [id number] [place] Nucleated RBC/100 WBC (Bld) [Ratio] 0.0 /100 WBC Normal [facility] Comment on above: Order Comment: Speci men Type: BLOOD SPECIMENOrdering Facility: [facility] Address: [address] [place] [address] Performed By: #### 5 7021-8 ####[facility] LABCLIA [id number] [address] [address] [place] Platelet mean volume (Bld) [Entitic vol] 12.2 fL Normal 9.0-12.7 [facility] Comment on above: Order Comment: Speci men Type: BLOOD SPECIMENOrdering Facility: [facility] Address: [address] [place] [address] Performed By: #### 5 7021-8 ####[facility] LABCLIA [id number] [place] [address] [place] Platelets (Bld) [#/Vol] 53 10*3/uL Low 150-400 C [facility] Comment on above: Order Comment: Speci men Type: BLOOD SPECIMENOrdering Facility: [facility] Address: [address] [place] [address] Performed By: #### 5 7021-8 ####[facility] LABCLIA [id number] [place] [address] [place] RBC (Bld) [#/Vol] 2.48 10*6/uL Low 4.20-6.00 [facility] Comment on above: Order Comment: Speci men Type: BLOOD SPECIMENOrdering Facility: [facility] Address: [address] [place] [address] Performed By: #### 5 7021-8 ####[facility] LABCLIA [id number] [place] [address] [place] WBC (Bld) [#/Vol] 6.09 10*3/uL Normal 3.70-11.00 [facility] Comment on above: Order Comment: Speci men Type: BLOOD SPECIMENOrdering Facility: [facility] Address: [address] [place] [address] Performed By: #### 5 7021-8 ####[facility] LABCLIA [id number] [place] [id number] [place] CNOVon 11-15-2024 CNOV Normal [facility] CONSULTon 11-15-2024 CONSULT Normal [facility] CONSULT PROGon 11-15-2024 CONSULT PROG Normal [facility] Fibrinogen PPP-mCncon 2024 Fibrinogen Coag (PPP) [Mass/Vol] 123 mg/dL Low 200-400 [facility] Comment on above: Order Comment: Speci men Type: BLOOD SPECIMENOrdering Facility: [facility] Address: [address] [place] [address] Performed By: #### 3 255-7, 10939-6 ####[facility] LABCLIA [id number] [place] [address] [place] Hepatic function 2000 panelo n 11-15-2024 Albumin [Mass/Vol] 2.8 g/dL Low 3.9-4.9 [facility] Comment on above: Order Comment: Speci men Type: BLOOD SPECIMENOrdering Facility: [facility] Address: [address] [place] [address] Performed By: #### 2 4325-3, 18099-0 ####[facility] LABCLIA [id number] [place] [address] [place] ALP [Catalytic activity/Vol] 277 U/L High 38-113 [facility] Comment on above: Order Comment: Speci men Type: BLOOD SPECIMENOrdering Facility: [facility] Address: [address] [place] [address] Performed By: #### 2 4325-3, 59612-5 ####[facility] LABCLIA [id number] [place] [id number] [place] ALT [Catalytic activity/Vol] 36 U/L Normal 10-54 [facility] Comment on above: Order Comment: Speci men Type: BLOOD SPECIMENOrdering Facility: [facility] Address: [address] [place] [address] Performed By: #### 2 4325-3, 57856-1 ####[facility] LABCLIA [id number] [address] [place] [address] [place] AST [Catalytic activity/Vol] 87 U/L High 14-40 [facility] Comment on above: Order Comment: Speci men Type: BLOOD SPECIMENOrdering Facility: [facility] Address: [address] [place] [address] Performed By: #### 2 4325-3, 38263-5 ####[facility] LABCLIA [id number] [address], [facility] [place] Bilirubin [Mass/Vol] 1.6 mg/dL High 0.2-1.3 [facility] Comment on above: Order Comment: Speci men Type: BLOOD SPECIMENOrdering Facility: [facility] Address: [address] [place] [address] Performed By: #### 2 4325-3, 45740-6 ####[facility] LABIA [id number] [address], [place] [address] [place] Bilirubin.conjugated [Mass/Vol] 0.9 mg/dL High <0.3 [facility] Comment on above: Order Comment: Speci men Type: BLOOD SPECIMENOrdering Facility: [facility] Address: [address] [place] [address] Performed By: #### 2 4325-3, 03797-5 ####[facility] LABIA [id number] [place] [address] [place] Protein [Mass/Vol] 5.4 g/dL Low 6.3-8.0 [facility] Comment on above: Order Comment: Speci men Type: BLOOD SPECIMENOrdering Facility: [facility] Address: [address] [place] [address] Performed By: #### 2 4325-3, 82811-1 ####[facility] LABCLIA [id number] [address] [place] [address] [place] PT panel Coag (PPP)on 2024 INR Coag (PPP) [Relative time] 1.8 {INR} High 0.9-1.3 [facility] Comment on above: Order Comment: Ezekiel ramirez Type: BLOOD SPECIMENOrdering Facility: [facility] Address: [address] [place] [address] Result Comment: Sarah min K Antagonist (VKA) Therapeutic Range: INR 2 to 3 (Target INR of 2.5)Note: For patients treated with VKA drugs, such as warfarin, the [employer] 2012 Guideline recommends [...] of 3).Tammi GONZALES, et al. Chest 2012, 141:7S-47SNishimnicolle RA, et al. [facility] 2017, 70: 252-289 Performed By: #### 3 255-7, 57554-6 ####[facility] [id number] [place] [address] [place] PT Coag (PPP) [Time] 18.9 s High 9.7-13.0 [facility] Comment on above: Order Comment: Ezekiel ramirez Type: BLOOD SPECIMENOrdering Facility: [facility] Address: [address] [place] [address] Performed By: #### 3 255-7, 37978-5 ####[facility] [id number] [place] [address] [place] Renal function 2000 panelon 11-15-2024 Albumin [Mass/Vol] 2.9 g/dL Low 3.9-4.9 [facility] Comment on above: Order Comment: Speci men Type: BLOOD SPECIMENOrdering Facility: [facility] Address: [address] [place] [id number] Performed By: #### 2 4325-3, 76366-2 ####[facility] LABCLIA [id number] [address] [address] [place] Anion gap [Moles/Vol] 15 mmol/L Normal 8-15 [facility] Comment on above: Order Comment: Speci men Type: BLOOD SPECIMENOrdering Facility: [facility] Address: [address] [place], [place] [address] Performed By: #### 2 4325-3, 56921-8 ####[facility] LABCLIA [id number] [place] [address] [place] Calcium [Mass/Vol] 8.4 mg/dL Low 8.5-10.2 [facility] Comment on above: Order Comment: Speci men Type: BLOOD SPECIMENOrdering Facility: [facility] Address: [address] [place], [place] [address] Performed By: #### 2 4325-3, 40408-2 ####[facility] LABCLIA [id number] [place] [address] [place] Chloride [Moles/Vol] 99 mmol/L Normal 98-107 [facility] Comment on above: Order Comment: Speci men Type: BLOOD SPECIMENOrdering Facility: [facility] Address: [address] [place], [place] [address] Performed By: #### 2 4325-3, 38868-4 ####[facility] LABCLIA [id number] [place] [address] [place] CO2 [Moles/Vol] 14 mmol/L Low 22-30 [facility] Comment on above: Order Comment: Speci men Type: BLOOD SPECIMENOrdering Facility: [facility] Address: [address] [place], [place] [address] Performed By: #### 2 4325-3, 12811-8 ####[facility] LABIA [id number] [address] [address] [place] Creatinine [Mass/Vol] 0.80 mg/dL Normal 0.73-1.22 [facility] Comment on above: Order Comment: Ezekiel ramirez Type: BLOOD SPECIMENOrdering Facility: [facility] Address: [address] [place] [address] Performed By: #### 2 4325-3, 46892-6 ####[facility] LABIA [id number] [place] [address] [place] Creatinine and Glomerular filtration rate.predicted panel (S/P/Bld) 103 mL/min/1.73m??? Normal >=60 [facility] Comment on above: Order Comment: [facility] Type: BLOOD SPECIMENOrdering Facility: [facility] Address: [address] [place] [address] Result Comment: Patric mated Glomerular Filtration Rate [...] actual GFR. Performed By: #### 2 4325-3, 60617-1 ####[facility] LABIA [id number] [address] [address] [place] Glucose [Mass/Vol] 272 mg/dL High 74-99 [facility] Comment on above: Order Comment: Speci men Type: BLOOD SPECIMENOrdering Facility: [facility] Address: [address] [place] [address] Result Comment: The [place] [employer] (ADA) provides guidance for cutoff [...] Standards of Medical Care in Diabetes 2016, [place] [employer]. Diabetes Care. 2016.39(Suppl 1). Performed By: #### 2 4325-3, 41565-5 ####[facility] LABCLIA [id number] [place] [address] [place] Phosphate [Mass/Vol] 2.2 mg/dL Low 2.7-4.8 [facility] Comment on above: Order Comment: Speci men Type: BLOOD SPECIMENOrdering Facility: [facility] Address: [address] [place] [address] Performed By: #### 2 4325-3, 05030-6 ####[facility] LABCLIA [id number] [place] [address] [place] Potassium [Moles/Vol] 3.8 mmol/L Normal 3.7-5.1 [facility] Comment on above: Order Comment: Speci men Type: BLOOD SPECIMENOrdering Facility: [facility] Address: [address] [place] [address] Performed By: #### 2 4325-3, 45094-6 ####[facility] LABCLIA [id number] [place] [address] [place] Sodium [Moles/Vol] 128 mmol/L Low 136-144 [facility] Comment on above: Order Comment: Speci men Type: BLOOD SPECIMENOrdering Facility: [facility] Address: [address] [place] [address] Performed By: #### 2 4325-3, 93452-3 ####[facility] LABCLIA [id number] [facility] [address] [address] [place] Urea nitrogen [Mass/Vol] 11 mg/dL Normal 9-24 [facility] Comment on above: Order Comment: Speci men Type: BLOOD SPECIMENOrdering Facility: [facility] Address: [address] [place] [address] Performed By: #### 2 4325-3, 95362-1 ####[facility] LABCLIA [id number] [place] [address] [place] SEPSIS LACTATEon 11-15-2024 Lactate [Moles/Vol] 3.2 mmol/L High <=2.0 [facility] Comment on above: Order Comment: Speci men Type: BLOOD SPECIMENOrdering Facility: [facility] Address: [address] [place] [address] Performed By: #### S LACT ####[facility] LABCLIA [id number] [place] [address] [place] SOCIAL WORKon 11-15-2024 SOCIAL WORK Normal [facility] THERAPY NTon 11-15-2024 THERAPY NT Normal [facility] THERAPY NT Normal [facility] TYPE + SCREENon 11-15-2024 ABO O Normal [facility] Comment on above: Order Comment: Speci men Type: BLOOD SPECIMENOrdering Facility: [facility] Address: [address] [place] [address] Performed By: #### T SCR ####[facility] BLOOD BANKCLIA [id number] [place] [address] [place] Rh Nom (Bld) Positive Normal [facility] Comment on above: Order Comment: Speci men Type: BLOOD SPECIMENOrdering Facility: [facility] Address: [address] [place] [address] Performed By: #### T SCR ####[facility] BLOOD BANKCLIA [id number] [place] [address] [place] TYPE AND SCREEN EXPIRATION 11/18/2024 23:59 Normal [facility] Comment on above: Order Comment: Speci men Type: BLOOD SPECIMENOrdering Facility: [facility] Address: [address] [place] [address] Performed By: #### T SCR ####[facility] BLOOD BANKIA [id number] [address] [address] [place] US ASCITES SURVEYon 11-16-19 US ASCITES SURVEY Normal [facility] Basic metabolic 2000 panelon 11-14-2024 Anion gap [Moles/Vol] 11 mmol/L Normal 8-15 [facility] Comment on above: Order Comment: Speci men Type: BLOOD SPECIMENOrdering Facility: [facility] Address: [address] [place], [place] [address] Performed By: #### 2 4321-2, 61036-7, 2776-1, ####[facility] LABCLIA [id number] [address] [address] [place] Calcium [Mass/Vol] 8.9 mg/dL Normal 8.5-10.2 [facility] Comment on above: Order Comment: Speci men Type: BLOOD SPECIMENOrdering Facility: [facility] Address: [address] [place] [address] Performed By: #### 2 4321-2, 56933-7, 2776-08, ####[facility] LABCLIA [id number] [address] [address] [place] Chloride [Moles/Vol] 99 mmol/L Normal 98-107 [facility] Comment on above: Order Comment: Speci men Type: BLOOD SPECIMENOrdering Facility: [facility] Address: [address] [place] [address] Performed By: #### 2 4321-2, 73494-5, 2776-08, ####[facility] LABCLIA [id number] [address] [address] [place] CO2 [Moles/Vol] 17 mmol/L Low 22-30 [facility] Comment on above: Order Comment: Speci men Type: BLOOD SPECIMENOrdering Facility: [facility] Address: [address] [place] [phone] Performed By: #### 2 4321-2, 46988-5, 2776-, ####[facility] LABCLIA [id number] [address] [address] [place] Creatinine [Mass/Vol] 0.89 mg/dL Normal 0.73-1.22 [facility] Comment on above: Order Comment: Speci men Type: BLOOD SPECIMENOrdering Facility: [facility] Address: [address] [place], [place] [address] Performed By: #### 2 4321-2, 91984-8, 2776-08, ####[facility] LABIA [id number] [address] [address] [place] Creatinine and Glomerular filtration rate.predicted panel (S/P/Bld) 99 mL/min/1.73m??? Normal >=60 [facility] Comment on above: Order Comment: Speci men Type: BLOOD SPECIMENOrdering Facility: [facility] Address: [address] [place] [address] Result Comment: Patric mated Glomerular Filtration Rate [...] actual GFR. Performed By: #### 2 4321-2, 14074-6, 277-, ####[facility] LABIA [id number] [address] [address] [place] Glucose [Mass/Vol] 250 mg/dL High 74-99 [facility] Comment on above: Order Comment: Speci men Type: BLOOD SPECIMENOrdering Facility: [facility] Address: [address] [place], [place] [address] Result Comment: The [place] Diabetes Association (ADA) provides guidance for cutoff [...] Standards of Medical Care in Diabetes 2016, [place] [employer]. Diabetes Care. 2016.39(Suppl 1). Performed By: #### 2 4321-2, 15309-4, 2776-08, ####[facility] LABCLIA [id number] [place] [address] [place] Potassium [Moles/Vol] 3.6 mmol/L Low 3.7-5.1 [facility] Comment on above: Order Comment: Speci men Type: BLOOD SPECIMENOrdering Facility: [facility] Address: [address] [place] [address] Performed By: #### 2 4321-2, 58256-2, 2776-08, ####[facility] LABIA [id number] [place] [address] [place] Sodium [Moles/Vol] 127 mmol/L Low 136-144 [facility] Comment on above: Order Comment: Speci men Type: BLOOD SPECIMENOrdering Facility: [facility] Address: [address] [place], [place] [address] Performed By: #### 2 4321-2, 03031-6, 2776-08, ####[facility] LABCLIA [id number] [facility] [address] [address] [place] Urea nitrogen [Mass/Vol] 14 mg/dL Normal 9-24 [facility] Comment on above: Order Comment: Speci men Type: BLOOD SPECIMENOrdering Facility: [facility] Address: [address] [place] [address] Performed By: #### 2 4321-2, 44226-3, 2777-1, 55165-1 ####[facility] LABCLIA [id number] [place] [address] [place] CBC W Auto Differential pane l (Bld)on 11-14-2024 Basophils (Bld) [#/Vol] 0.04 10*3/uL Normal <0.11 [facility] Comment on above: Order Comment: Speci men Type: BLOOD SPECIMENOrdering Facility: [facility] Address: [address] [place] [address] Performed By: #### 5 7021-8 ####[facility] LABCLIA [id number] [place] [address] [place] Basophils/100 WBC (Bld) 0.7 % Normal C [facility] Comment on above: Order Comment: Speci men Type: BLOOD SPECIMENOrdering Facility: [facility] Address: [address] [place] [address] Performed By: #### 5 7021-8 ####[facility] LABCLIA [id number] [place] [address] [place] Differential cell count method Nom (Bld) Auto Normal [facility] Comment on above: Order Comment: Speci men Type: BLOOD SPECIMENOrdering Facility: [facility] Address: [address] [place] [address] Performed By: #### 5 7021-8 ####[facility] LABCLIA [id number] [place] [address] [place] Eosinophils (Bld) [#/Vol] 0.23 10*3/uL Normal <0.46 [facility] Comment on above: Order Comment: Speci men Type: BLOOD SPECIMENOrdering Facility: [facility] Address: [address] [place] [address] Performed By: #### 5 7021-8 ####[facility] LABCLIA [id number] [place] [address] [place] Eosinophils/100 WBC (Bld) 4.1 % Normal [facility] Comment on above: Order Comment: Speci men Type: BLOOD SPECIMENOrdering Facility: [facility] Address: [address] [place] [address] Performed By: #### 5 7021-8 ####[facility] LABCLIA [id number] [place] [address] [place] Erythrocyte distribution width (RBC) [Ratio] 16.3 % High 11.5-15.0 [facility] Comment on above: Order Comment: Speci men Type: BLOOD SPECIMENOrdering Facility: [facility] Address: [address] [place] [address] Performed By: #### 5 7021-8 ####[facility] LABIA [id number] [place] [address] [place] Hematocrit (Bld) [Volume fraction] 22.7 % Low 39.0-51.0 [facility] Comment on above: Order Comment: Speci men Type: BLOOD SPECIMENOrdering Facility: [facility] Address: [address] [place] [address] Performed By: #### 5 7021-8 ####[facility] LABCLIA [id number] [place] [address] [place] Hemoglobin (Bld) [Mass/Vol] 7.9 g/dL Low 13.0-17.0 [facility] Comment on above: Order Comment: Speci men Type: BLOOD SPECIMENOrdering Facility: [facility] Address: [address] [place] [address] Performed By: #### 5 7021-8 ####[facility] LABIA [id number] [place] [address] [place] Immature granulocytes (Bld) [#/Vol] 0.04 10*3/uL Normal <0.10 [facility] Comment on above: Order Comment: Speci men Type: BLOOD SPECIMENOrdering Facility: [facility] Address: [address] [place] [address] Performed By: #### 5 7021-8 ####[facility] LABCLIA [id number] [place] [address] [place] Immature granulocytes/100 WBC (Bld) 0.7 % Normal [facility] Comment on above: Order Comment: Speci men Type: BLOOD SPECIMENOrdering Facility: [facility] Address: [address] [place] [address] Performed By: #### 5 7021-8 ####[facility] LABCLIA [id number] [place] [address] [place] Lymphocytes (Bld) [#/Vol] 0.72 10*3/uL Low 1.00-4.00 [facility] Comment on above: Order Comment: Speci men Type: BLOOD SPECIMENOrdering Facility: [facility] Address: [address] [place] [address] Performed By: #### 5 7021-8 ####[facility] LABCLIA [id number] [place] [address] [place] Lymphocytes/100 WBC (Bld) 12.8 % Normal [facility] Comment on above: Order Comment: Speci men Type: BLOOD SPECIMENOrdering Facility: [facility] Address: [address] [place] [address] Performed By: #### 5 7021-8 ####[facility] LABIA [id number] [place] [address] [place] MCH (RBC) [Entitic mass] 31.7 pg Normal 26.0-34.0 [facility] Comment on above: Order Comment: Speci men Type: BLOOD SPECIMENOrdering Facility: [facility] Address: [address] [place] [address] Performed By: #### 5 7021-8 ####[facility] LABCLIA [id number] [place] [address] [place] MCHC (RBC) [Mass/Vol] 34.8 g/dL Normal 30.5-36.0 [facility] Comment on above: Order Comment: Speci men Type: BLOOD SPECIMENOrdering Facility: [facility] Address: [address] [place] [address] Performed By: #### 5 7021-8 ####[facility] LABCLIA [id number] [place] [address] [place] MCV (RBC) [Entitic vol] 91.2 fL Normal 80.0-100.0 C [facility] Comment on above: Order Comment: Speci men Type: BLOOD SPECIMENOrdering Facility: [facility] Address: [address] [place] [address] Performed By: #### 5 7021-8 ####[facility] LABCLIA [id number] [place] [address] [place] Monocytes (Bld) [#/Vol] 0.68 10*3/uL Normal <0.87 [facility] Comment on above: Order Comment: Speci men Type: BLOOD SPECIMENOrdering Facility: [facility] Address: [address] [place] [address] Performed By: #### 5 7021-8 ####[facility] LABCLIA [id number] [place] [address] [place] Monocytes/100 WBC (Bld) 12.1 % Normal C [facility] Comment on above: Order Comment: Speci men Type: BLOOD SPECIMENOrdering Facility: [facility] Address: [address] [place] [address] Performed By: #### 5 7021-8 ####[facility] LABCLIA [id number] [place] [id number] [place] Neutrophils (Bld) [#/Vol] 3.92 10*3/uL Normal 1.45-7.50 [facility] Comment on above: Order Comment: Speci men Type: BLOOD SPECIMENOrdering Facility: [facility] Address: [address] [place] [address] Performed By: #### 5 7021-8 ####[facility] LABCLIA [id number] [place] [address] [place] Neutrophils/100 WBC (Bld) 69.6 % Normal [facility] Comment on above: Order Comment: Speci men Type: BLOOD SPECIMENOrdering Facility: [facility] Address: [address] [place] [address] Performed By: #### 5 7021-8 ####[facility] LABCLIA [id number] [place] [address] [place] Nucleated RBC (Bld) [#/Vol] 10*3/uL Normal <0.01 [facility] Comment on above: Order Comment: Speci men Type: BLOOD SPECIMENOrdering Facility: [facility] Address: [address] [place] [address] Performed By: #### 5 7021-8 ####[facility] LABCLIA [id number] [place] [address] [place] Nucleated RBC/100 WBC (Bld) [Ratio] 0.0 /100 WBC Normal [facility] Comment on above: Order Comment: Speci men Type: BLOOD SPECIMENOrdering Facility: [facility] Address: [address] [place] [address] Performed By: #### 5 7021-8 ####[facility] LABCLIA [id number] [place] [address] [place] Platelet mean volume (Bld) [Entitic vol] 12.1 fL Normal 9.0-12.7 [facility] Comment on above: Order Comment: Speci men Type: BLOOD SPECIMENOrdering Facility: [facility] Address: [address] [place] [address] Performed By: #### 5 7021-8 ####[facility] LABIA [id number] [place] [address] [place] Platelets (Bld) [#/Vol] 43 10*3/uL Low 150-400 C [facility] Comment on above: Order Comment: Speci men Type: BLOOD SPECIMENOrdering Facility: [facility] Address: [address] [place] [address] Result Comment: Resu lts checked and verified.No clot detected. Performed By: #### 5 7021-8 ####[facility] [id number] [place] [address] [place] RBC (Bld) [#/Vol] 2.49 10*6/uL Low 4.20-6.00 [facility] Comment on above: Order Comment: Speci men Type: BLOOD SPECIMENOrdering Facility: [facility] Address: [address] [place] [address] Performed By: #### 5 7021-8 ####[facility] [id number] [place] [address] [place] WBC (Bld) [#/Vol] 5.63 10*3/uL Normal 3.70-11.00 [facility] Comment on above: Order Comment: Speci men Type: BLOOD SPECIMENOrdering Facility: [facility] Address: [address] [place] [address] Performed By: #### 5 7021-8 ####[facility] [id number] [place] [address] [place] Fibrinogen PPP-mCncon 2024 Fibrinogen Coag (PPP) [Mass/Vol] 119 mg/dL Low 200-400 [facility] Comment on above: Order Comment: Speci men Type: BLOOD SPECIMENOrdering Facility: [facility] Address: [address] [place] [address] Performed By: #### 3 255-7, 14016-3 ####[facility] LABCLIA [id number] [address] [address] [place] Hepatic function 2000 panelo n 11-14-2024 Albumin [Mass/Vol] 2.8 g/dL Low 3.9-4.9 [facility] Comment on above: Order Comment: Speci men Type: BLOOD SPECIMENOrdering Facility: [facility] Address: [address] [place] [address] Performed By: #### 2 4321-2, 83249-9, 2777-1, 95346-6 ####[facility] LABIA [id number] [place] [address] [place] ALP [Catalytic activity/Vol] 248 U/L High 38-113 [facility] Comment on above: Order Comment: Speci men Type: BLOOD SPECIMENOrdering Facility: [facility] Address: [address] [place] [address] Performed By: #### 2 4321-2, 54751-1, 2777-1, 82615-9 ####[facility] LABIA [id number] [place] [address] [place] ALT [Catalytic activity/Vol] 29 U/L Normal 10-54 [facility] Comment on above: Order Comment: Speci men Type: BLOOD SPECIMENOrdering Facility: [facility] Address: [address] [place], [place] [address] Performed By: #### 2 4321-2, 97545-9, 2777-1, 57027-9 ####[facility] LABIA [id number] [address] [address] [place] AST [Catalytic activity/Vol] 62 U/L High 14-40 [facility] Comment on above: Order Comment: Speci men Type: BLOOD SPECIMENOrdering Facility: [facility] Address: [address] [place], [place] [address] Performed By: #### 2 4321-2, 00483-5, 2777-1, ####[facility] LABCLIA [id number] [place] [address] [place] Bilirubin [Mass/Vol] 1.7 mg/dL High 0.2-1.3 [facility] Comment on above: Order Comment: Speci men Type: BLOOD SPECIMENOrdering Facility: [facility] Address: [address] [place] [address] Performed By: #### 2 4321-2, 16646-1, 277-1, ####[facility] LABIA [id number] [place] [address] [place] Bilirubin.conjugated [Mass/Vol] 1.0 mg/dL High <0.3 [facility] Comment on above: Order Comment: Speci men Type: BLOOD SPECIMENOrdering Facility: [facility] Address: [address] [place] [address] Performed By: #### 2 4321-2, 82002-4, 277-, ####[facility] LABIA [id number] [place] [address] [place] Protein [Mass/Vol] 5.4 g/dL Low 6.3-8.0 [facility] Comment on above: Order Comment: Speci men Type: BLOOD SPECIMENOrdering Facility: [facility] Address: [address] [place] [address] Performed By: #### 2 4321-2, 20085-6, 2777-1, ####[facility] LABIA [id number] [place] [address] [place] Magnesium SerPl-mCncon 11-14 Magnesium [Mass/Vol] 1.6 mg/dL Low 1.7-2.3 [facility] Comment on above: Order Comment: Speci men Type: BLOOD SPECIMENOrdering Facility: [facility] Address: [address] [place] [address] Performed By: #### 2 4321-2, 36114-0, 2777-1, 59109-5 ####[facility] LABCLIA [id number] [place] [address] [place] PT panel Coag (PPP)on 2024 INR Coag (PPP) [Relative time] 1.8 {INR} High 0.9-1.3 [facility] Comment on above: Order Comment: Ezekiel ramirez Type: BLOOD SPECIMENOrdering Facility: [facility] Address: [address] [place] [address] Result Comment: Sarah min K Antagonist (VKA) Therapeutic Range: INR 2 to 3 (Target INR of 2.5)Note: For patients treated with VKA drugs, such as warfarin, the [place] [employer] 2012 Guideline recommends [...] al. Chest 2012, 141:7S-47SNishimura RA, et al. [facility] 2017, 70: 252-289 Performed By: #### 3 255-7, 20990-7 ####[facility] LABIA [id number] [place] [id number] [place] PT Coag (PPP) [Time] 19.2 s High 9.7-13.0 [facility] Comment on above: Order Comment: Ezekiel ramirez Type: BLOOD SPECIMENOrdering Facility: [facility] Address: [address] [place] [address] Performed By: #### 3 255-7, 09683-2 ####[facility] LABCLIA [id number] [place] [address] [place] Phosphate SerPl-mCncon 11-14 Phosphate [Mass/Vol] 1.9 mg/dL Low 2.7-4.8 [facility] Comment on above: Order Comment: Speci men Type: BLOOD SPECIMENOrdering Facility: [facility] Address: [address] [place] [address] Performed By: #### 2 4321-2, 23631-3, 2777-1, 43053-8 ####[facility] LABIA [id number] [place] [address] [place] URINALYSIS, REFLEX MICROSCOP ICon 11-14-2024 Bacteria LM.HPF (Urine sed) [#/Area] Negative Normal Negative [facility] Comment on above: Order Comment: Speci men Type: URINE SPECIMENOrdering Facility: [facility] Address: [address] [place] [address] Performed By: #### L [id number] ####[facility] LABIA [id number] [place] [address] [place] Bilirubin Ql (U) 1+ Abnormal Negative [facility] Comment on above: Order Comment: Speci men Type: URINE SPECIMENOrdering Facility: [facility] Address: [address] [place] [address] Result Comment: Sugg est correlation with clinical findings and serum bilirubin if clinically indicated. Performed By: #### L [id number] ####[facility] LABIA [id number] [place] [address] [place] Clarity (Unsp spec) Cloudy Abnormal [facility] Comment on above: Order Comment: Speci men Type: URINE SPECIMENOrdering Facility: [facility] Address: [address] [place] [address] Performed By: #### L [id number] ####[facility] LABCLIA [id number] [place] [address] [place] Color (U) [place] Abnormal Yellow [facility] Comment on above: Order Comment: Speci men Type: URINE SPECIMENOrdering Facility: [facility] Address: [address] [place] [address] Performed By: #### L [id number] ####[facility] LABCLIA [id number] [place] [address] [place] Epithelial cells LM.HPF (Urine sed) [#/Area] None Seen Normal [facility] Comment on above: Order Comment: Speci men Type: URINE SPECIMENOrdering Facility: [facility] Address: [address] [place] [address] Performed By: #### L [id number] ####[facility] LABCLIA [id number] [place] [address] [place] Glucose Test strip (U) [Mass/Vol] Negative Normal Negative [facility] Comment on above: Order Comment: Speci men Type: URINE SPECIMENOrdering Facility: [facility] Address: [address] [place] [address] Performed By: #### L [id number] ####[facility] LABCLIA [id number] [place] [address] [place] Hemoglobin Ql (U) 3+ Abnormal Negative [facility] Comment on above: Order Comment: Speci men Type: URINE SPECIMENOrdering Facility: [facility] Address: [address] [place] [address] Performed By: #### L [id number] ####[facility] LABCLIA [id number] [place] [address] [place] Hyaline casts (Urine sed) [#/Area] 0 /[LPF] Normal 0 /LPF [facility] Comment on above: Order Comment: Speci men Type: URINE SPECIMENOrdering Facility: [facility] Address: [address] [place] [address] Performed By: #### L [id number] ####[facility] LABCLIA [id number] [place] [address] [place] Ketones Ql (U) Negative Normal Negative [facility] Comment on above: Order Comment: Speci men Type: URINE SPECIMENOrdering Facility: [facility] Address: [address] [place] [address] Performed By: #### L [id number] ####[facility] LABCLIA [id number] [place] [address] [place] Leukocyte esterase Test strip Ql (U) 3+ Abnormal Negative [facility] Comment on above: Order Comment: Speci men Type: URINE SPECIMENOrdering Facility: [facility] Address: [address] [place] [address] Performed By: #### L [id number] ####[facility] LABCLIA [id number] [place] [address] [place] Nitrite Ql (U) Negative Normal Negative [facility] Comment on above: Order Comment: Speci men Type: URINE SPECIMENOrdering Facility: [facility] Address: [address] [place] [address] Performed By: #### L [id number] ####[facility] LABCLIA [id number] [place] [address] [place] pH (U) 6.0 [pH] Normal <8.5 [facility] Comment on above: Order Comment: Speci men Type: URINE SPECIMENOrdering Facility: [facility] Address: [address] [place] [address] Performed By: #### L [id number] ####[facility] LABCLIA [id number] [place] [address] [place] Protein (U) [Mass/Vol] 2+ Abnormal Negative [facility] Comment on above: Order Comment: Speci men Type: URINE SPECIMENOrdering Facility: [facility] Address: [address] [place] [address] Performed By: #### L [id number] ####[facility] [id number] [place] [address] [place] RBC LM.HPF (Urine sed) [#/Area] /[HPF] Abnormal 0-2 /HPF [facility] Comment on above: Order Comment: Speci men Type: URINE SPECIMENOrdering Facility: [facility] Address: [address] [place] [address] Performed By: #### L [id number] ####[facility] [id number] [place] [address] [place] Specific gravity (U) [Rel density] 1.017 Normal 1.005-1.030 [facility] Comment on above: Order Comment: Speci men Type: URINE SPECIMENOrdering Facility: [facility] Address: [address] [place] [address] Performed By: #### L [id number] ####[facility] [id number] [address] [place] Urobilinogen Ql (U) 0.2 EU/dL Normal 0.2-1.0 EU/dL [facility] Comment on above: Order Comment: Speci men Type: URINE SPECIMENOrdering Facility: [facility] Address: [address] [place] [address] Performed By: #### L [id number] ####[facility] [id number] [place] [address] [place] WBC LM.HPF (Urine sed) [#/Area] /[HPF] Abnormal 0-5 /HPF [facility] Comment on above: Order Comment: Speci men Type: URINE SPECIMENOrdering Facility: [facility] Address: [address] [place] [address] Performed By: #### L [id number] ####[facility] LABIA [id number] [place] [address] [place] Yeast.budding LM.HPF (Urine sed) [#/Area] Present Abnormal None Seen [facility] Comment on above: Order Comment: Speci men Type: URINE SPECIMENOrdering Facility: [facility] Address: [address] [place] [address] Performed By: #### L [id number] ####[facility] [id number] [place] [address] [place] 25(OH)D3 [facility]-ncon 2024 25-hydroxyvitamin D3 [Mass/Vol] 16.2 ng/mL Low 31.0-80.0 [facility] Comment on above: Order Comment: Speci men Type: BLOOD SPECIMENOrdering Facility: [facility] Address: [address] [place] [address] Performed By: #### 7 852-7, MEASLG, VZVG2, 1988-10 ####[facility] [id number] [place] [address] [place] A-Tocopherol Vit E SerPl-mCn con 11-13-2024 Alpha tocopherol [Mass/Vol] 3.3 mg/L Low 6.0-23.0 [facility] Comment on above: Order Comment: Speci men Type: BLOOD SPECIMENOrdering Facility: [facility] Address: [address] [place] [address] Performed By: #### 2 923-1, 1823-4 ####[facility] [id number] [place] [address] [place] ALPHA-1 ANTITRYPSIN GENOon 0 11-13-2024 HA1AT REVIEWED BY Michelle [facility] Comment on above: Order Comment: Speci men Type: BLOOD SPECIMENOrdering Facility: [facility] Address: [address] [place] [address] Result Comment: Alph a-1 Antitrypsin GenotypingLaboratory Accession Number: [id number]:No Variant Detected in SERPINA1 (PI*MM)Interpretation:DNA testing indicates [...] the two mostcommon pathogenic variants: S (c.863A>T, p.Tfp566Nmo, g.86641650), Z(c.1096G>A, p.Ozt141Unf, g.84463767), and the rarer variants: F(c.739C>T, p.Cfi571Ubj, g.43485545), I (c.187C>T, p.Zjt29Lke,g.24250296).Limitations:This Laboratory Developed Test (LDT) is designed to [...] was developed and its performance characteristics determinedby [facility]'s Pathology and Laboratory Medicine Department. Ithas not been cleared or approved by the FDA. [facility] is regulated under CLIAas certified to perform high-complexity testing. This test is used forclinical purposes. It should not be regarded as investigational or forresearch.Test performed at [facility], [address] [place] [address], [id number]. CLIA Number: [id number]:1) Kait HIRSCH, Samir G, Essence ML, Ilan M, Kai CE, K,Jadyn LAURENT, Princess SL, Suman GOMEZ, Ivania OliveiraK, Haider C, Renée J.The Diagnosis and Management of Alpha-1 Antritrypsin Deficiency inthe Adult. Chronic Obstr Pulm Dis. 2016 Jan 07;3:668-682.2) Renee JA, Linsey ON, Rachele ER, Khushi DG. a1-Antitrypsinphenotypes and associated serum protein concentrations in a largeclinical population. Chest.2013 Nov;143(4):1000-8.3) Elmo A, Toña NA, Brad CR, Jennifer FJ, Salvador SJ, Nicole. Molecular characterisation of three cjort-7-tycxnyewqmd deficiencyvariants: proteinase inhibitor (Pi) nullcardiff (Nim337----Ijn);PiMmalton (Vca17----ejeflxnv) and PiI (Xzh13----Iuu). Hum Trisha. 1988Dec;84(1):55-8.4) Flor WHITFIELD and Kait HIRSCH. Clinical practice.Alpha1-antitrypsin deficiency. N Engl J Med. 2008;360(56)1287-53.5) Margot BETANCOURT, Kwame F, Prakash HIRSCH. The significance of the F variantof hrhir-7-fdukojimupc and unique case report of a PiFF homozygote.[facility] Pulm Med. 2013 7;14:132.6) Ivania MARIE, Elena SHETTY, and Jaziel Carlson. Alpha-1 AntitrypsinDeficiency. 2005May 30 [Updated 2016August 22]. In: Juanito HIRSCH, Nemesio Jimenez TO, et al., editors. [employer] [Internet]. [place] ([place]):[facility]; 4578-8536. Available from:http://www.ncbi.nlm.nih.gov/books/GQA3093/Interpretation performed at remote location (R0A1) by Fifi España MD Performed By: #### H A1AT ####[facility]UM[facility] LIMSCLIA [id number] [address] [place] ANES POSTPROC EVALon 025 ANES POSTPROC EVAL Normal [facility] ANES PRE-OPon 11-13-2024 ANES PRE-OP Normal [facility] Alpha tocopherol [Mass/Vol]o n 11-13-2024 Beta+gamma tocopherol [Mass/Vol] 0.6 mg/L Normal 0.3-3.2 [facility] Comment on above: Order Comment: Speci men Type: BLOOD SPECIMENOrdering Facility: [facility] Address: [address] [place] [address] Result Comment: This test was developed, and its performance characteristics determined by the [facility] Department of Pathology and Laboratory Medicine. It has not been cleared or approved by the FDA. The [facility] Department of Pathology and Laboratory Medicine is regulated under CLIA as qualified to perform high-complexity testing. This test is used for clinical purposes. It should not be regarded as investigational or for research. Performed By: #### 2 923-1, 1823-4 ####[facility] LABCLIA [id number] [place] [address] [place] Basic metabolic 2000 panelon 11-13-2024 Anion gap [Moles/Vol] 9 mmol/L Normal 8-15 [facility] Comment on above: Order Comment: Speci men Type: BLOOD SPECIMENOrdering Facility: [facility] Address: [address] [place] [address] Performed By: #### 2 4321-2, 40903-4, 57996-2, 38889-7 ####[facility] LABCLIA [id number] [place] [address] [address] [place] Calcium [Mass/Vol] 9.1 mg/dL Normal 8.5-10.2 [facility] Comment on above: Order Comment: Speci men Type: BLOOD SPECIMENOrdering Facility: [facility] Address: [address] [place] [address] Performed By: #### 2 4321-2, 43360-6, 49103-2, 76385-4 ####[facility] LABCLIA [id number] [facility] [place] [id number] [place] Chloride [Moles/Vol] 99 mmol/L Normal 98-107 [facility] Comment on above: Order Comment: Speci men Type: BLOOD SPECIMENOrdering Facility: [facility] Address: [address] [place] [address] Performed By: #### 2 4321-2, 56337-9, 28727-1, 82349-8 ####[facility] LABCLIA [id number] [facility] [place] [id number] [place] CO2 [Moles/Vol] 16 mmol/L Low 22-30 [facility] Comment on above: Order Comment: Speci men Type: BLOOD SPECIMENOrdering Facility: [facility] Address: [address] [place] [address] Performed By: #### 2 4321-2, 75969-2, 88777-5, 42974-2 ####[facility] LABCLIA [id number] [address] [address] [address] [place] Creatinine [Mass/Vol] 1.10 mg/dL Normal 0.73-1.22 [facility] Comment on above: Order Comment: Ezekiel ramirez Type: BLOOD SPECIMENOrdering Facility: [facility] Address: [address] [place] [id number] Performed By: #### 2 4321-2, 13459-2, 56330-2, 66302-2 ####[facility] LABCLIA [id number] [place] [address] [place] Creatinine and Glomerular filtration rate.predicted panel (S/P/Bld) 78 mL/min/1.73m??? Normal >=60 [facility] Comment on above: Order Comment: Ezekiel james Type: BLOOD SPECIMENOrdering Facility: [facility] Address: [address] [place] [address] Result Comment: Patric mated Glomerular Filtration Rate [...] actual GFR. Performed By: #### 2 4321-2, 03689-4, 34298-6, 28628-0 ####[facility] LABCLIA [id number] [address] [address] [place] Glucose [Mass/Vol] 278 mg/dL High 74-99 [facility] Comment on above: Order Comment: Ezekiel ramirez Type: BLOOD SPECIMENOrdering Facility: [facility] Address: [address] [place] [address] Result Comment: The [place] Diabetes Association (ADA) provides guidance for cutoff [...] Standards of Medical Care in Diabetes 2016, [place] [employer]. Diabetes Care. 2016.39(Suppl 1). Performed By: #### 2 4321-2, 97964-3, 99609-5, 56173-9 ####[facility] LABCLIA [id number] [address] [address] [place] Potassium [Moles/Vol] 4.1 mmol/L Normal 3.7-5.1 [facility] Comment on above: Order Comment: Speci men Type: BLOOD SPECIMENOrdering Facility: [facility] Address: [address] [place] [address] Performed By: #### 2 4321-2, 44159-2, 84990-0, 21232-5 ####[facility] LABIA [id number] [place] [address] [place] Sodium [Moles/Vol] 124 mmol/L Low 136-144 [facility] Comment on above: Order Comment: Speci men Type: BLOOD SPECIMENOrdering Facility: [facility] Address: [address] [place] [address] Performed By: #### 2 4321-2, 10974-2, 64376-9, 94932-5 ####[facility] LABIA [id number] [place] [address] [place] Urea nitrogen [Mass/Vol] 20 mg/dL Normal 9-24 [facility] Comment on above: Order Comment: Speci men Type: BLOOD SPECIMENOrdering Facility: [facility] Address: [address] [place] [address] Performed By: #### 2 4321-2, 54352-3, 29065-8, 36183-7 ####[facility] LABCLIA [id number] [address] [address] [place] CBC W Auto Differential pane l (Bld)on 11-13-2024 Basophils (Bld) [#/Vol] 10*3/uL Normal <0.11 [facility] Comment on above: Order Comment: Speci men Type: BLOOD SPECIMENOrdering Facility: [facility] Address: [address] [place] [address] Performed By: #### 5 7021-8 ####[facility] LABCLIA [id number] [facility]UEJOHN [facility] KENN[facility] MEM[facility] HOSPITALK [address], [facility] [place] Basophils/100 WBC (Bld) 0.4 % Normal [facility] Comment on above: Order Comment: Speci men Type: BLOOD SPECIMENOrdering Facility: [facility] Address: [address] [place] [address] Performed By: #### 5 7021-8 ####[facility] LABCLIA [id number] [facility] [address], [place] [address] [place] Differential cell count method Nom (Bld) Auto Normal [facility] Comment on above: Order Comment: Speci men Type: BLOOD SPECIMENOrdering Facility: [facility] Address: [address] [place] [address] Performed By: #### 5 7021-8 ####[facility] LABCLIA [id number] [place] [address] [place] Eosinophils (Bld) [#/Vol] 0.18 10*3/uL Normal <0.46 [facility] Comment on above: Order Comment: Speci men Type: BLOOD SPECIMENOrdering Facility: [facility] Address: [address] [place] [address] Performed By: #### 5 7021-8 ####[facility] LABCLIA [id number] [place] [address] [place] Eosinophils/100 WBC (Bld) 3.3 % Normal [facility] Comment on above: Order Comment: Speci men Type: BLOOD SPECIMENOrdering Facility: [facility] Address: [address] [place] [address] Performed By: #### 5 7021-8 ####[facility] LABCLIA [id number] [place] [address] [place] Erythrocyte distribution width (RBC) [Ratio] 17.0 % High 11.5-15.0 [facility] Comment on above: Order Comment: Speci men Type: BLOOD SPECIMENOrdering Facility: [facility] Address: [address] [place] [address] Performed By: #### 5 7021-8 ####[facility] LABIA [id number] [place] [address] [place] Hematocrit (Bld) [Volume fraction] 21.6 % Low 39.0-51.0 [facility] Comment on above: Order Comment: Speci men Type: BLOOD SPECIMENOrdering Facility: [facility] Address: [address] [place] [address] Performed By: #### 5 7021-8 ####[facility] [id number] [place] [address] [place] Hemoglobin (Bld) [Mass/Vol] 7.4 g/dL Low 13.0-17.0 [facility] Comment on above: Order Comment: Speci men Type: BLOOD SPECIMENOrdering Facility: [facility] Address: [address] [place] [address] Performed By: #### 5 7021-8 ####[facility] [id number] [place] [address] [place] [place] Immature granulocytes (Bld) [#/Vol] 0.04 10*3/uL Normal <0.10 [facility] Comment on above: Order Comment: Speci men Type: BLOOD SPECIMENOrdering Facility: [facility] Address: [address] [place] [address] Performed By: #### 5 7021-8 ####[facility] LABIA [id number] [id number] [address] [place] Immature granulocytes/100 WBC (Bld) 0.7 % Normal [facility] Comment on above: Order Comment: Speci men Type: BLOOD SPECIMENOrdering Facility: [facility] Address: [address] [place] [address] Performed By: #### 5 7021-8 ####[facility] LABCLIA [id number] [place] [address] [place] Lymphocytes (Bld) [#/Vol] 0.64 10*3/uL Low 1.00-4.00 [facility] Comment on above: Order Comment: Speci men Type: BLOOD SPECIMENOrdering Facility: [facility] Address: [address] [place] [address] Performed By: #### 5 7021-8 ####[facility] LABCLIA [id number] [place] [address] [place] Lymphocytes/100 WBC (Bld) 11.6 % Normal [facility] Comment on above: Order Comment: Speci men Type: BLOOD SPECIMENOrdering Facility: [facility] Address: [address] [place] [address] Performed By: #### 5 7021-8 ####[facility] LABCLIA [id number] [place] [address] [place] MCH (RBC) [Entitic mass] 31.8 pg Normal 26.0-34.0 [facility] Comment on above: Order Comment: Speci men Type: BLOOD SPECIMENOrdering Facility: [facility] Address: [address] [place] [address] Performed By: #### 5 7021-8 ####[facility] LABCLIA [id number] [place] [address] [place] MCHC (RBC) [Mass/Vol] 34.3 g/dL Normal 30.5-36.0 [facility] Comment on above: Order Comment: Speci men Type: BLOOD SPECIMENOrdering Facility: [facility] Address: [address] [place] [address] Performed By: #### 5 7021-8 ####[facility] LABCLIA [id number] [place] [address] [place] MCV (RBC) [Entitic vol] 92.7 fL Normal 80.0-100.0 [facility] Comment on above: Order Comment: Speci men Type: BLOOD SPECIMENOrdering Facility: [facility] Address: [address] [place] [address] Performed By: #### 5 7021-8 ####[facility] LABCLIA [id number] [place] [address] [place] Monocytes (Bld) [#/Vol] 0.68 10*3/uL Normal <0.87 [facility] Comment on above: Order Comment: Speci men Type: BLOOD SPECIMENOrdering Facility: [facility] Address: [address] [place] [address] Performed By: #### 5 7021-8 ####[facility] LABIA [id number] [place] [address] [place] Monocytes/100 WBC (Bld) 12.4 % Normal C [facility] Comment on above: Order Comment: Speci men Type: BLOOD SPECIMENOrdering Facility: [facility] Address: [address] [place] [address] Performed By: #### 5 7021-8 ####[facility] LABCLIA [id number] [place] [address] [place] Neutrophils (Bld) [#/Vol] 3.94 10*3/uL Normal 1.45-7.50 [facility] Comment on above: Order Comment: Speci men Type: BLOOD SPECIMENOrdering Facility: [facility] Address: [address] [place] [address] Performed By: #### 5 7021-8 ####[facility] LABCLIA [id number] [place] [address] [place] Neutrophils/100 WBC (Bld) 71.6 % Normal [facility] Comment on above: Order Comment: Speci men Type: BLOOD SPECIMENOrdering Facility: [facility] Address: [address] [place] [address] Performed By: #### 5 7021-8 ####[facility] LABCLIA [id number] [place] [address] [place] Nucleated RBC (Bld) [#/Vol] 10*3/uL Normal <0.01 [facility] Comment on above: Order Comment: Speci men Type: BLOOD SPECIMENOrdering Facility: [facility] Address: [address] [place] [address] Performed By: #### 5 7021-8 ####[facility] LABCLIA [id number] [place] [address] [place] Nucleated RBC/100 WBC (Bld) [Ratio] 0.0 /100 WBC Normal [facility] Comment on above: Order Comment: Speci men Type: BLOOD SPECIMENOrdering Facility: [facility] Address: [address] [place] [address] Performed By: #### 5 7021-8 ####[facility] LABCLIA [id number] [place] [address] [place] Platelet mean volume (Bld) [Entitic vol] 11.7 fL Normal 9.0-12.7 [facility] Comment on above: Order Comment: Speci men Type: BLOOD SPECIMENOrdering Facility: [facility] Address: [address] [place] [address] Performed By: #### 5 7021-8 ####[facility] LABCLIA [id number] [place] [address] [place] Platelets (Bld) [#/Vol] 38 10*3/uL Low 150-400 C [facility] Comment on above: Order Comment: Speci men Type: BLOOD SPECIMENOrdering Facility: [facility] Address: [address] [place] [address] Result Comment: Resu lts checked and verified.No clot detected. Performed By: #### 5 7021-8 ####[facility] LABCLIA [id number] [place] [address] [place] RBC (Bld) [#/Vol] 2.33 10*6/uL Low 4.20-6.00 [facility] Comment on above: Order Comment: Speci men Type: BLOOD SPECIMENOrdering Facility: [facility] Address: [address] [place] [address] Performed By: #### 5 7021-8 ####[facility] LABCLIA [id number] [place] [address] [place] WBC (Bld) [#/Vol] 5.50 10*3/uL Normal 3.70-11.00 [facility] Comment on above: Order Comment: Speci men Type: BLOOD SPECIMENOrdering Facility: [facility] Address: [address] [place] [address] Performed By: #### 5 7021-8 ####[facility] LABIA [id number] [place] [address] [place] CMV IgG Qnon 11-13-2024 CMV IGG QUAL Negative Normal Negative [facility] Comment on above: Order Comment: Speci men Type: BLOOD SPECIMENOrdering Facility: [facility] Address: [address] [place] [address] Result Comment: No s erological evidence of past exposure to Cytomegalovirus. Cannot exclude recent infection if the specimen collected within 4-6 weeks after infection. Performed By: #### 7 852-7, MEASLG, VZVG2, 1988-10 ####[facility] LABCLIA [id number] [place] [address] [place] CMV IgG SerPl-aCncon 025 CMV IgG Qn 0.37 U/mL Normal [facility] Comment on above: Order Comment: Speci men Type: BLOOD SPECIMENOrdering Facility: [facility] Address: [address] [place] [address] Result Comment: The magnitude of the measured result is not indicative of the amount of antibody present.U/mL values are interpreted as follows:Negative <0.6Equivocal 0.6 to <0.70Positive >=0.70 Performed By: #### 7 852-7, MEASLG, VZVG2, 1988- ####[facility] LABCLIA [id number] [place] [address] [place] CONSULT PROGon 11-13-2024 CONSULT PROG Normal [facility] CYTOLOGY NON-GYNon 5 AP DISCLAIMER Normal [facility] Comment on above: Order Comment: Speci men Type: FLUID SPECIMENOrdering Facility: [facility] Address: [address] [place] [address] Result Comment: Shellie pugh Developed Test (LDT) Disclaimer:Performance characteristics of immunohistochemical, immunofluorescent, and chromogenic in-situ hybridization tests have been determined by the performing laboratory within [facility] Pathology and Laboratory Medicine Department ([facility], [facility], [facility], [facility], [facility], [facility], or [facility]) in a manner consistent with CLIA requirements. One or more of these tests may not have been cleared or approved by the FDA. [facility] is regulated under CLIA as qualified to perform high-complexity testing. These tests are used for clinical purposes. These should not be regarded as investigational or for research. Positive and negative controls stain appropriately. Performed By: #### C YTONON ####[facility] LABCLIA [id number] [place] [address] [place] CASE REPORT Normal [facility] Comment on above: Order Comment: Speci men Type: FLUID SPECIMENOrdering Facility: [facility] Address: [address] [place] [address] Result Comment: [facility] Cytology Report Case: [id number] Provider: Deb Fox MD Collected: 11/13/2024 02:46 PMOrdering Location: [place] [address] Received: 11/15/2024 05:01 AMPathologist: Foster Newton MDSpecimen: Urine, Midstream Performed By: #### C YTONON ####[facility] LABCLIA [id number] [address] [address] [place] CLINICAL HISTORY Staghorn calculi, s/ p L sided stenting with hematuria Normal [facility] Comment on above: Order Comment: Speci men Type: FLUID SPECIMENOrdering Facility: [facility] Address: [address] [place] [address] Performed By: #### C YTONON ####[facility] LABCLIA [id number] [address] DIAGNOSIS COMMENT Normal [facility] Comment on above: Order Comment: Speci men Type: FLUID SPECIMENOrdering Facility: [facility] Address: [address] [place] [address] Result Comment: A. F ungal yeast forms are seen, morphologically consistent with Mary species. Clinical correlation is suggested. Performed By: #### C YTONON ####[facility] LABCLIA [id number] [address] FINAL DIAGNOSIS Normal [facility] Comment on above: Order Comment: Speci men Type: FLUID SPECIMENOrdering Facility: [facility] Address: [address] [place] [address] Result Comment: A - Urine, Voided: Negative for high-grade urothelial carcinoma. Abundant acute inflammation (see comment). at 1141 EDT Performed By: #### C YTONON ####[facility] LABCLIA [id number] [address] [address] [place] FINAL PERFORMING LAB Normal [facility] Comment on above: Order Comment: Speci men Type: FLUID SPECIMENOrdering Facility: [facility] Address: [address] [place] [address] Result Comment: Tech nical component, automatic vulcanizing operator screening performed at: [facility], [address] [place] [address] CLIA: [id number] interpretation performed at: [facility], [address] [place] [address] CLIA# [id number] Director: Titi Voss MD Performed By: #### C YTONON ####[facility] LABCLIA [id number] [place] [address] [place] GROSS DESCRIPTION Normal [facility] Comment on above: Order Comment: Speci [facility] Type: FLUID SPECIMENOrdering Facility: [facility] Address: [address] [place] [address] Result Comment: A. U rine, Gyblucqdj50 cc cloudy lexis fluid . ThinPrep prepared. Performed By: #### C YTONON ####[facility] LABCLIA [id number] [place] [address] [place] EBV capsid IgG Qn (S)on 11-02 EBV VCA IGG, QUAL Positive Abnormal Negative [facility] Comment on above: Order Comment: Speci [facility] Type: BLOOD SPECIMENOrdering Facility: [facility] Address: [address] [place] [address] Result Comment: The result suggests recent or past EBV infection. The final interpretation should be done in the context of other EBV serology panel results. Performed By: #### 8 039-0, 7885-7 ####[facility] LABCLIA [id number] [place] [address] [place] Fibrinogen PPP-mCncon 2024 Fibrinogen Coag (PPP) [Mass/Vol] 94 mg/dL Low 200-400 [facility] Comment on above: Order Comment: Speci [facility] Type: BLOOD SPECIMENOrdering Facility: [facility] Address: [address] [place] [address] Result Comment: Samp le checked for clot. Performed By: #### 3 4528-0, 3255-7 ####[facility] LABCLIA [id number] [place] [address] [place] HBV core Ab Ser Qlon 025 HBV core Ab Ql (S) Negative Normal Negative [facility] Comment on above: Order Comment: Speci men Type: BLOOD SPECIMENOrdering Facility: [facility] Address: [address] [place] [address] Result Comment: No e vidence of current or past infection with Hepatitis B virus. Should recent infection be suspected, repeat testing may be considered 3-4 weeks after this draw. Performed By: #### 3 1201-7, 01555-0, AHAVG, 5195-3, 06696-4 ####[facility] LABCLIA [id number] [address] [facility] HBV surface Ab Ql (S)on 11-02 HBV surface Ab Qn (S) <8.00 Normal [facility] Comment on above: Order Comment: Speci men Type: BLOOD SPECIMENOrdering Facility: [facility] Address: [address] [place] [address] Result Comment: <8 m IU/mL: No serological evidence of immunity to Hepatitis B Virus.>/= 8 to <12 mIU/mL: No serological evidence of immunity to Hepatitis B Virus.>/= 12 mIU/mL: Consistent with serological evidence of immunity to Hepatitis B Virus. Performed By: #### 3 1201-7, 98219-6, AHAVG, 5195-3, 19742-1 ####[facility] LABCLIA [id number] [address] OF [place] HBV surface Ab Ser Qlon 11-02 HBV surface Ab Ql (S) Negative Normal [facility] Comment on above: Order Comment: Speci men Type: BLOOD SPECIMENOrdering Facility: [facility] Address: [address] [place] [address] Result Comment: No s erological evidence of immunity to Hepatitis B Virus. Performed By: #### 3 1201-7, 79264-4, AHAVG, 5195-3, 31706-8 ####[facility] LABCLIA [id number] [place] [address] [place] HBV surface Ag Ser Qlon 11-02 HBV surface Ag Ql (S) Negative Normal Negative [facility] Comment on above: Order Comment: Speci men Type: BLOOD SPECIMENOrdering Facility: [facility] Address: [address] [place] [address] Performed By: #### 3 1201-7, 60966-4, AHAVG, 5195-3, 08820-1 ####[facility] LABIA [id number] [place] [address] [place] HCV Ab Ser Qlon 11-13-2024 HCV Ab Ql (S) Negative Normal Negative [facility] Comment on above: Order Comment: Speci [facility] Type: BLOOD SPECIMENOrdering Facility: [facility] Address: [address] [place] [address] Result Comment: The result suggests no evidence of infection with Hepatitis C virus. Should recent infection be suspected, repeat testing may be considered 4-6 weeks after this draw. Performed By: #### 1 6128-1 ####[facility] LABCLIA [id number] [place] [address] [place] HEPATITIS A ANTIBODY, IGGon 11-13-2024 HAV IgG Ql (S) Negative Normal [facility] Comment on above: Order Comment: Speci men Type: BLOOD SPECIMENOrdering Facility: [facility] Address: [address] [place] [address] Result Comment: No s erological evidence of past exposure to hepatitis A virus or hepatitis A vaccination. Should recent infection be suspected, repeat testing is suggested 3-4 weeks after this draw. Performed By: #### 3 1201-7, 13874-8, AHAVG, 5195-3, 86473-3 ####[facility] LABCLIA [id number] [address] [address] [place] Performed By: #### 7 3752-8, AHAVG, STRSER, MUMPSG ####[facility] LABCLIA [id number] [address] [place] [address] [place] HIV 1+2 Ab IA Qlon 5 HIV 1 and 2 Ab IA.rapid Nom (S/P/Bld) Normal [facility] Comment on above: Order Comment: Speci men Type: BLOOD SPECIMENOrdering Facility: [facility] Address: [address] [place] [address] Result Comment: Test not indicated. Performed By: #### 3 1201-7, 90751-5, AHAVG, 5-3, 05065-2 ####[facility] LABIA [id number] [address] [address] [place] HIV 1+2 Ab+HIV1 p24 Ag IA Ql Non-Reactive Normal Nonreactive [facility] Comment on above: Order Comment: Speci men Type: BLOOD SPECIMENOrdering Facility: [facility] Address: [address] [place] [address] Performed By: #### 3 1201-7, 15683-3, AHAVG, 5195-3, 81800-9 ####[facility] LABIA [id number] [address] [place] [address] [place] HIV immunoassay testing algorithm interpretation (S/P/Bld) [Interp] Normal [facility] Comment on above: Order Comment: Speci men Type: BLOOD SPECIMENOrdering Facility: [facility] Address: [address] [place] [address] Result Comment: No e vidence of HIV-1 or HIV-2 infection. Should recent infection be suspected, repeat testing may be considered 2-3 weeks after this draw.[place] Rev. Code 3701.243(E): This information has been [...] or diagnoses. Performed By: #### 3 1201-7, 62839-2, AHAVG, 5195-3, 65584-6 ####[facility] LABIA [id number] [address] [address] [place] Hepatic function 2000 panelo n 11-13-2024 Albumin [Mass/Vol] 2.8 g/dL Low 3.9-4.9 [facility] Comment on above: Order Comment: Speci men Type: BLOOD SPECIMENOrdering Facility: [facility] Address: [address] [place] [address] Performed By: #### 2 4321-2, 45064-8, 97389-8, 71679-0 ####[facility] LABIA [id number] [place] [id number] [place] ALP [Catalytic activity/Vol] 225 U/L High 38-113 [facility] Comment on above: Order Comment: Speci men Type: BLOOD SPECIMENOrdering Facility: [facility] Address: [address] [place] [address] Performed By: #### 2 4321-2, 53301-3, 14392-4, 66757-1 ####[facility] LABIA [id number] [address] [address] [place] ALT [Catalytic activity/Vol] 22 U/L Normal 10-54 [facility] Comment on above: Order Comment: Speci men Type: BLOOD SPECIMENOrdering Facility: [facility] Address: [address] [place] [address] Performed By: #### 2 4321-2, 24332-0, 92722-1, 40841-7 ####[facility] LABCLIA [id number] [facility] [address] [address] [place] AST [Catalytic activity/Vol] 36 U/L Normal 14-40 [facility] Comment on above: Order Comment: Speci men Type: BLOOD SPECIMENOrdering Facility: [facility] Address: [address] [place] [address] Performed By: #### 2 4321-2, 22532-0, 50687-6, 68524-1 ####[facility] LABIA [id number] [address] [address] [place] Bilirubin [Mass/Vol] 1.8 mg/dL High 0.2-1.3 [facility] Comment on above: Order Comment: Speci men Type: BLOOD SPECIMENOrdering Facility: [facility] Address: [address] [place] [address] Performed By: #### 2 4321-2, 54458-8, 94394-5, 37522-4 ####[facility] LABIA [id number] [address] [address] [place] Bilirubin.conjugated [Mass/Vol] 0.9 mg/dL High <0.3 [facility] Comment on above: Order Comment: Speci men Type: BLOOD SPECIMENOrdering Facility: [facility] Address: [address] [place] [address] Performed By: #### 2 4321-2, 34842-1, 94106-2, 95105-6 ####[facility] LABIA [id number] [address] [address] [place] Protein [Mass/Vol] 5.2 g/dL Low 6.3-8.0 [facility] Comment on above: Order Comment: Speci men Type: BLOOD SPECIMENOrdering Facility: [facility] Address: [address] [place] [address] Performed By: #### 2 4321-2, 16594-9, 91356-4, 83856-3 ####[facility] LABCLIA [id number] [place] [address] [place] LIVER REC INIT W/Uon 025 ALLOGEN RESULTS TO FOLLOW See Allogen report to follow Normal [facility] Comment on above: Order Comment: Speci men Type: BLOOD SPECIMENOrdering Facility: [facility] Address: [address] [place] [address] Performed By: #### L RIPW ####[facility] [id number] [place] [address] [place] LPa SerPl-mCncon 11-13-2024 Lipoprotein a [Mass/Vol] mg/dL Normal <30 [facility] Comment on above: Order Comment: Speci men Type: BLOOD SPECIMENOrdering Facility: [facility] Address: [address] [place] [address] Performed By: #### 1 0835-7 ####[facility] LABIA [id number] [place] [address] [place] Lipid 1996 panelon 5 Cholesterol [Mass/Vol] 52 mg/dL Normal <200 [facility] Comment on above: Order Comment: Speci men Type: BLOOD SPECIMENOrdering Facility: [facility] Address: [address] [place] [address] Result Comment: <200 mg/dL, Desirable 200-239 mg/dL, Borderline high>239 mg/dL, High Performed By: #### 2 4321-2, 00726-5, 93437-0, 17872-3 ####[facility] LABIA [id number] [place] [address] [place] Cholesterol in HDL [Mass/Vol] 17 mg/dL Low >39 [facility] Comment on above: Order Comment: Speci men Type: BLOOD SPECIMENOrdering Facility: [facility] Address: [address] [place] [address] Result Comment: 40-5 9 mg/dL, Acceptable>59 mg/dL, High: Negative risk factor for coronary heart disease<40 mg/dL, Low: Positive risk factor for coronary heart disease Performed By: #### 2 4321-2, 63651-1, 73736-3, 16170-0 ####[facility] LABCLIA [id number] [facility] [address] [place] [address] [place] Cholesterol in LDL [Mass/Vol] 26 mg/dL Normal <100 [facility] Comment on above: Order Comment: Speci men Type: BLOOD SPECIMENOrdering Facility: [facility] Address: [address] [place] [address] Result Comment: <100 mg/dL, Optimal 100-129 mg/dL, Near optimal/above optimal 130-159 mg/dL, Borderline high 160-189 mg/dL, High>189 mg/dL, Very highSecondary prevention optimal LDL Cholesterol levels are recommended to be < 70 mg/dL Performed By: #### 2 4321-2, 81900-5, 61966-8, 01185-0 ####[facility] LABCLIA [id number] [address] [place] [address] [place] Cholesterol in LDL/Cholesterol in HDL [Mass ratio] 1.53 {ratio} Normal <2.54 [facility] Comment on above: Order Comment: Speci men Type: BLOOD SPECIMENOrdering Facility: [facility] Address: [address] [place] [address] Result Comment: Refe rence:1. National Cholesterol Education Program ATP III Guideline At-A-Glance Quick Desk Reference: National Heart, Lung, and Blood [place]. National Institutes of Health. 2001: NIH Publication No. 01-3305.2. An International Atherosclerosis Society position paper: global recommendations for the management of dyslipidemia: executive summary, Atherosclerosis. 2014: 232(2):410-413. Performed By: #### 2 4321-2, 15302-9, 15845-8, 95031-0 ####[facility] LABCLIA [id number] [address] [place] [address] [place] Cholesterol in VLDL [Mass/Vol] 9 mg/dL Normal <30 [facility] Comment on above: Order Comment: Speci men Type: BLOOD SPECIMENOrdering Facility: [facility] Address: [address] [place] [address] Performed By: #### 2 4321-2, 37976-1, 54290-4, 72405-6 ####[facility] LABCLIA [id number] [address] [address] [place] Cholesterol non HDL [Mass/Vol] 35 mg/dL Normal <130 [facility] Comment on above: Order Comment: Speci men Type: BLOOD SPECIMENOrdering Facility: [facility] Address: [address] [place] [address] Result Comment: <130 mg/dL, Optimal 130-159 mg/dL, Near optimal/above optimal 160-189 mg/dL, Borderline high 190-219 mg/dL, High>219 mg/dL, Very highSecondary prevention optimal non HDL Cholesterol levels are recommended to be <100 mg/dL Performed By: #### 2 4321-2, 82614-7, 76159-8, 69343-4 ####[facility] LABCLIA [id number] [address] [address] [place] Cholesterol.total/Donna sterol in HDL [Mass ratio] 3.06 {ratio} Normal <5.10 [facility] Comment on above: Order Comment: Speci men Type: BLOOD SPECIMENOrdering Facility: [facility] Address: [address] [place] [address] Performed By: #### 2 4321-2, 54998-3, 75647-5, 94363-6 ####[facility] LABCLIA [id number] [address] [address] [place] FASTING TIME 4 hrs Normal [facility] Comment on above: Order Comment: Speci men Type: BLOOD SPECIMENOrdering Facility: [facility] Address: [address] [place] [address] Performed By: #### 2 4321-2, 60562-2, 20730-6, 30105-9 ####[facility] LABCLIA [id number] [place] [address] [place] Triglyceride [Mass/Vol] 45 mg/dL Normal <150 [facility] Comment on above: Order Comment: [facility]i [facility] Type: BLOOD SPECIMENOrdering Facility: [facility] Address: [address] [place] [address] Result Comment: <150 mg/dL, Normal 150-199 mg/dL, Borderline high 200-499 mg/dL, High>499 mg/dL, Very high Performed By: #### 2 4321-2, 40165-4, 87662-2, 84793-2 ####[facility] LABCLIA [id number] [address] [place] MUMPS IGG ABon 11-13-2024 MuV IgG Ql (S) Negative Abnormal Positive [facility] Comment on above: Order Comment: Speci [facility] Type: BLOOD SPECIMENOrdering Facility: [facility] Address: [address] [place] [address] Result Comment: The result suggests no history of Mumps vaccination or exposure to Mumps virus, however, some individuals with past history of Mumps vaccination may test negative using this test. Please correlate with past history of vaccination if applicable. Performed By: #### 7 3752-8, AHAVG, STRSER, MUMPSG ####[facility] LABCLIA [id number] [address] [place] NT-proBNP [facility]13 Natriuretic peptide.B prohormone N-Terminal [Mass/Vol] 1047 pg/mL High <125 [facility] Comment on above: Order Comment: Speci [facility] Type: BLOOD SPECIMENOrdering Facility: [facility] Address: [address] [place] [address] Performed By: #### 2 4321-2, 67732-9, 72005-4, 97690-2 ####[facility] LABCLIA [id number] MARIIJazmine [facility] [id number] [place] [address] [place] NURSING PROGon 11-13-2024 [facility]SING [facility] PHOSPHATIDYLETHANOL (PETH)on 11-13-2024 EER PETH See Note Normal [facility] Comment on above: Order Comment: Speci men Type: BLOOD SPECIMENOrdering Facility: [facility] Address: [address] [place] [address] Result Comment: Auth orized individuals can access the Aptito Enhanced Reportwith an [employer]ptito Connect account using the following link.Your local lab can assist you in obtaining the patientreport if you don't have a Connect account.[email or web address] Performed By: #### P ETH ####[facility]IES[facility]IA [id number] [place] [address] PETH 16:0/18.2 (PLPETH) <10 [facility] Comment on above: Order Comment: Speci men Type: BLOOD SPECIMENOrdering Facility: [facility] Address: [address] [place] [address] Result Comment: Refe rence ranges are not well established. Performed By: #### P ETH ####[facility]IESCLIA [id number] [place] [address] PETH 16:0/18:1 (POPETH) <10 [facility] Comment on above: Order Comment: Speci men Type: BLOOD SPECIMENOrdering Facility: [facility] Address: [address] [place] [address] Result Comment: PEth 16:0/18:1 (POPEth)Less than 10 ng/mL............Not detectedLess than 20 ng/mL............Abstinence or light aokkhoeyypxzipoand37 - 200 ng/mL................Moderate alcohol consumptionGreater than 200 ng/mL........Heavy alcohol consumption or chronicalcohol use(Reference: Alonso Landaverde and Mathew Ha 2018 J. Forensic Sci) Performed By: #### P ETH ####PRCarnegie RoboticsIA [id number] [place] [address] PETH INTERPRETATION See Comment Normal [facility] Comment on above: Order Comment: Speci men Type: BLOOD SPECIMENOrdering Facility: [facility] Address: [facility] [place] [address] Result Comment: Phos phatidylethanol (PEth) is a [...] was developed and its performance characteristicsdetermined by [facility]. It has not been cleared orapproved by the U.S. Food and Drug Administration. This test wasperformed in a CLIA-certified laboratory and is intended forclinical purposes.Performed By: [facility] [place], [place] [address]Ufdmnqwxfh Director: Lizandro Ordonez MD, PhDCLIA Number: [id number] Performed By: #### P ETH ####PRCarnegie RoboticsIA [id number] [place] [address] PT panel Coag (PPP)on 2024 INR Coag (PPP) [Relative time] 1.9 {INR} High 0.9-1.3 [facility] Comment on above: Order Comment: Spechelder ramirez Type: BLOOD SPECIMENOrdering Facility: [facility] Address: [address] [place] [address] Result Comment: Sarah min K Antagonist (VKA) Therapeutic Range: INR 2 to 3 (Target INR of 2.5)Note: For patients treated with VKA drugs, such as warfarin, the [employer] 2012 Guideline recommends [...] al. Chest 2012, 141:7S-47SNishimnicolle RA, et al. [facility] 2017, 70: 252-289 Performed By: #### 3 4528-0, 3255-7 ####[facility] LABIA [id number] [place] [address] [place] PT Coag (PPP) [Time] 19.9 s High 9.7-13.0 [facility] Comment on above: Order Comment: Speci men Type: BLOOD SPECIMENOrdering Facility: [facility] Address: [address] [place] [address] Performed By: #### 3 4528-0, 3255-7 ####[facility] LABIA [id number] [place] [address] [place] Pathology biopsy report Marco Antonio (Tiss)on 11-13-2024 AP DISCLAIMER Normal [facility] Comment on above: Order Comment: Ezekiel ramirez Type: TISSUE SPECIMENOrdering Facility: [facility] Address: [address] [place] [address] Result Comment: Shellie pugh Developed Test (LDT) Disclaimer:Performance characteristics of immunohistochemical, immunofluorescent, and chromogenic in-situ hybridization tests have been determined by the performing laboratory within [facility]'s Thai Torres Pathology and Laboratory Medicine Department ([facility], [facility], [facility], [facility], [facility], [facility], or [facility]) in a manner consistent with CLIA [...] Performed By: #### 6 6121-5 ####[facility]ATORYCLIA [id number] [address] LABCLIA [id number] [address] [place] CASE REPORT Normal [facility] Comment on above: Order Comment: Speci men Type: TISSUE SPECIMENOrdering Facility: [facility] Address: [address] [place] [address] Result Comment: Surg ical Pathology Report Case: [id number] Provider: Thai Pineda MD Collected: 11/13/2024 09:40 AMOrdering Location: [place] [address] Received: 11/15/2024 03:18 PMPathologist: Axel Berger MDSpecimen: Esophagus, Biopsy, r/o esophageal candidiasis Performed By: #### 6 6121-5 ####[facility]ATORYCLIA [id number] [address] LABCLIA [id number] [address] OF [facility] FINAL DIAGNOSIS Normal [facility] Comment on above: Order Comment: Speci men Type: TISSUE SPECIMENOrdering Facility: [facility] Address: [address] [place] [address] Result Comment: Ashly kaye, biopsy:- Squamous mucosal candidiasis.JEL 11/16/2024 at 1034 EDT Performed By: #### 6 6121-5 ####[facility] LABORATORYCLIA [id number] [address] LABCLIA [id number] [place] [address] [place] FINAL PERFORMING LAB Normal [facility] Comment on above: Order Comment: Speci men Type: TISSUE SPECIMENOrdering Facility: [facility] Address: [address] [place] [address] Result Comment: Diag nostic interpretation performed at: [facility], [address] [place] [address] CLIA# [id number] Director: Rick Harris MD Performed By: #### 6 6121-5 ####[facility] LABORATORYCLIA [id number] [address] LABCLIA [id number] [address] [place] GROSS DESCRIPTION Normal [facility] Comment on above: Order Comment: Speci men Type: TISSUE SPECIMENOrdering Facility: [facility] Address: [address] [place] [address] Result Comment: A. E sophagus, BiopsyReceived in formalin are multiple pieces of espitia, soft tissue aggregating to 0.9 x 0.2 x 0.2 cm. Totally submitted in one cassette.BC November 15, 2024 4:50 PMGross examination performed at [facility], [address] [place] [address] Performed By: #### 6 6121-5 ####[facility] LABORATORYCLIA [id number] [address] LABCLIA [id number] [place] [address] [place] Phosphate SerPl-mCncon 11-13 Phosphate [Mass/Vol] 1.5 mg/dL Low 2.7-4.8 [facility] Comment on above: Order Comment: Speci men Type: BLOOD SPECIMENOrdering Facility: [facility] Address: [address] [place] [address] Performed By: #### 2 777-1, 3015-3 ####[facility] LABCLIA [id number] [place] [address] [place] RUBEOLA (MEASLES)IGGon 11-13 MEASLES IGG AB, QUAL Positive Normal Positive [facility] Comment on above: Order Comment: Speci men Type: BLOOD SPECIMENOrdering Facility: [facility] Address: [address] [place] [address] Result Comment: The result suggests recent or past exposure to Measles virus or Measles vaccination. The current test does not detect neutralizing antibodies. Positive result may also be seen due to presence of passively-transferred antibodies. Please correlate with patient's history. Performed By: #### 7 852-7, MEASLG, VZVG2, 1987-10 ####[facility] LABCLIA [id number] [place] [address] [place] Reagin and Treponema pallidu m IgG and IgM [Interp]on 11-13-2024 T. pallidum IgG+IgM IA Ql (S) Non-Reactive Normal Nonreactive [facility] Comment on above: Order Comment: Speci james Type: BLOOD SPECIMENOrdering Facility: [facility] Address: [address] [place] [address] Performed By: #### 7 3752-8, AHAVG, STRSER, MUMPSG ####[facility] LABCLIA [id number] [place] [address] [place] Reagin+T pallidum IgG+IgM Se rPl-Impon 11-13-2024 Reagin and Treponema pallidum IgG and IgM [Interp] Cannot exclude recent Treponemal infection if specimen collected within 7-10 days after appearance of suspect lesions or 2-3 weeks after an exposure. Clinical correlation is required. Normal [facility] Comment on above: Order Comment: Speci james Type: BLOOD SPECIMENOrdering Facility: [facility] Address: [address] [place] [address] Performed By: #### 7 3752-8, SHMUEL SORENSEN MUMPSG ####[facility] LABCLIA [id number] [place] [address] [place] STAPHYLOCOCCUS AUREUS AND MR SA SCREEN, PCR, NASALon 11-13-2024 S. aureus and MRSA panel ANANTH+probe (Nose) Not detected Normal Not Detected [facility] Comment on above: Order Comment: Ezekiel ramirez Type: SWABOrdering Facility: [facility] Address: [address] [place] [address] Performed By: #### S APCR ####[facility] LABCLIA [id number] [place] [address] [place] STRONGYLOIDES IGG BLon 11-13 STRONGYLOIDES IGG QUALITATIVE Negative Normal Negative [facility] Comment on above: Order Comment: Speci james Type: BLOOD SPECIMENOrdering Facility: [facility] Address: [address] [place] [address] Performed By: #### S TRSER ####[facility] LABCLIA [id number] [place] [address] [place] Performed By: #### 7 3752-8, SHMUEL SORENSEN MUMPSG ####[facility] LABCLIA [id number] [place] [address] [place] T. gondii IgG Qn (S)on 11-13 TOXO IGG QUAL Negative Normal Negative [facility] Comment on above: Order Comment: Meggani james Type: BLOOD SPECIMENOrdering Facility: [facility] Address: [address] [place] [address] Result Comment: No s erological evidence of past exposure to Toxoplasma gondii. Cannot exclude recent infection if the specimen collected within 3-4 weeks after infection. Performed By: #### 8 039-0, 7885-7 ####[facility] LABCLIA [id number] [place] [address] [place] THERAPY NTon 11-13-2024 THERAPY NT Normal [facility] TOXICOLOGY PANEL BLDon 11-13 Acetaminophen [Mass/Vol] ug/mL Low 10-30 [facility] Comment on above: Order Comment: Ezekiel ramirez Type: BLOOD SPECIMENOrdering Facility: [facility] Address: [address] [place] [address] Result Comment: Toxi c > 150 ug/mL 4 hours post ingestionThe Viviana Figueroa nomogram can be used to estimate the probability of hepatotoxicity via the relationship of plasma acetaminophen concentration to the post ingestion interval. (Skylar. Pediatrics. 1975. 55:871 to 876 and Viviana et al. Arch [place] Med. 1981. 141:380 to 385).Reference ranges and high/low indicator flags are provided as general guidelines only. The treating physician must determine appropriate target levels/dosing based on the specific clinical situation. Performed By: #### T OXP ####[facility] LABCLIA [id number] [place] [address] [place] Ethanol [Mass/Vol] mg/dL Normal <11 [facility] Comment on above: Order Comment: Ezekiel ramirez Type: BLOOD SPECIMENOrdering Facility: [facility] Address: [address] [place] [address] Performed By: #### T OXP ####[facility] LABCLIA [id number] [place] [address] [place] Salicylates [Mass/Vol] mg/dL Low 3.0-30.0 [facility] Comment on above: Order Comment: Ezekiel ramirez Type: BLOOD SPECIMENOrdering Facility: [facility] Address: [address] [place] [address] Result Comment: The therapeutic range varies and has been reported to be 3.0 to 10.0 mg/dL for anti pyretic/analgesic conditions and 15.0 to 30.0 mg/dL for anti inflammatory/rheumatic fever conditions. Ranges published by the instrument boiler attendant.Reference ranges and high/low indicator flags are provided as general guidelines only. The treating physician must determine appropriate target levels/dosing based on the specific clinical situation. Performed By: #### T OXP ####[facility] LABCLIA [id number] [place] [address] [place] TSH SerPl-aCncon 11-13-2024 TSH Qn 0.633 m[IU]/L Normal 0.270-4.200 [facility] Comment on above: Order Comment: Spechelder ramirez Type: BLOOD SPECIMENOrdering Facility: [facility] Address: [address] [place] [address] Performed By: #### 2 777-1, 3016-3 ####[facility] LABCLIA [id number] [place] [address] [place] Upper GI endoscopyon 025 Upper GI endoscopy Normal [facility] VARICELLA ZOSTER IGGon 11-13 VARICELLA ZOSTER IGG, QUAL Positive Normal Positive [facility] Comment on above: Order Comment: Ezekiel ramirez Type: BLOOD SPECIMENOrdering Facility: [facility] Address: [address] [place] [address] Result Comment: The result suggests recent or past exposure to Varicella-Zoster virus or chickenpox vaccination or zoster vaccination. Positive result may also be seen due to presence of passively-transferred antibodies. Please correlate with patient's history. Performed By: #### 7 852-7, MEASLG, VZVG2, 1987-10 ####[facility] LABCLIA [id number] [place] [address] [place] Vit A SerPl-mCncon 5 Retinol [Mass/Vol] 0.03 mg/L Low 0.30-1.20 [facility] Comment on above: Order Comment: Ezekiel ramirez Type: BLOOD SPECIMENOrdering Facility: [facility] Address: [address] [place] [address] Result Comment: This test was developed, and its performance characteristics determined by the [facility] Department of Pathology and Laboratory Medicine. It has not been cleared or approved by the FDA. The [facility] Department of Pathology and Laboratory Medicine is regulated under CLIA as qualified to perform high-complexity testing. This test is used for clinical purposes. It should not be regarded as investigational or for research. Performed By: #### 2 923-1, 1823-4 ####[facility] LABIA [id number] [place] [address] [place] [facility] Zinc SerPl-mCncon 11-13-2024 Zinc [Mass/Vol] 60 ug/dL Normal 60-120 [facility] Comment on above: Order Comment: Speci men Type: BLOOD SPECIMENOrdering Facility: [facility] Address: [address] [place] [address] Result Comment: This test was developed, and its performance characteristics determined by the [facility] Department of Pathology and Laboratory Medicine. It has not been cleared or approved by the FDA. The [facility] Department of Pathology and Laboratory Medicine is regulated under CLIA as qualified to perform high-complexity testing. This test is used for clinical purposes. It should not be regarded as investigational or for research. Performed By: #### 5 763-8 ####[facility] LABIA [id number] [address] [place] AFP SerPl-mCncon 11-12-2024 AFP [Mass/Vol] 2.25 ng/mL Normal <9.00 [facility] Comment on above: Order Comment: Speci james Type: BLOOD SPECIMENOrdering Facility: [facility] Address: [address] [place] [address] Result Comment: The Alpha-Fetoprotein test was performed using the [employer] DxI immunoenzymatic assay. Results obtained with different assay methods or kits cannot be used interchangeably. Performed By: #### 1 834-1 ####[facility] LABCLIA [id number] [place] [address] [place] ARTERIAL BLOOD GASESon 11-12 Base deficit (BldA) [Moles/Vol] -8 mmol/L Low -2-0 [facility] Comment on above: Order Comment: Speci men Type: ARTERIAL BLOOD SPECIMENOrdering Facility: [facility] Address: [address] [place] [address] Performed By: #### A LLBG ####[facility] LABIA [id number] [place] [address] [place] Body temperature 98.6 [degF] Normal [facility] Comment on above: Order Comment: Speci men Type: ARTERIAL BLOOD SPECIMENOrdering Facility: [facility] Address: [address] [place] [address] Performed By: #### A LLBG ####[facility] LABCLIA [id number] [place] [address] [place] Calcium.ionized (Bld) [Mass/Vol] 1.20 mmol/L Normal 1.08-1.30 [facility] Comment on above: Order Comment: Speci men Type: ARTERIAL BLOOD SPECIMENOrdering Facility: [facility] Address: [address] [place] [address] Performed By: #### A LLBG ####[facility] LABIA [id number] [place] [address] [place] Calcium.ionized adjusted to pH 7.4 (BldA) [Moles/Vol] 1.24 mmol/L Normal 1.08-1.30 [facility] Comment on above: Order Comment: Speci men Type: ARTERIAL BLOOD SPECIMENOrdering Facility: [facility] Address: [address] [place] [address] Performed By: #### A LLBG ####[facility] LABCLIA [id number] [place] [address] [place] Carboxyhemoglobin (BldA) [Mass fraction] 2.0 % Normal 0.0-2.0 [facility] Comment on above: Order Comment: Speci men Type: ARTERIAL BLOOD SPECIMENOrdering Facility: [facility] Address: [address] [place] [address] Result Comment: Carb oxyhemoglobin Reference Range for Smokers: 2.0-8.0% Performed By: #### A LLBG ####[facility] LABCLIA [id number] [place] [address] [place] CO2 (Bld) [Partial pressure] 21 mm Hg Low 36-46 [facility] Comment on above: Order Comment: Speci men Type: ARTERIAL BLOOD SPECIMENOrdering Facility: [facility] Address: [address] [place] [address] Performed By: #### A LLBG ####[facility] LABCLIA [id number] [place] [address] [place] Glucose [Mass/Vol] 276 mg/dL High 60-105 [facility] Comment on above: Order Comment: Speci men Type: ARTERIAL BLOOD SPECIMENOrdering Facility: [facility] Address: [address] [place] [address] Performed By: #### A LLBG ####[facility] LABCLIA [id number] [place] [address] [place] HCO3 (Bld) [Moles/Vol] 15 mmol/L Low 22-26 [facility] Comment on above: Order Comment: Speci men Type: ARTERIAL BLOOD SPECIMENOrdering Facility: [facility] Address: [address] [place] [address] Performed By: #### A LLBG ####[facility] LABCLIA [id number] [place] [address] [place] Hematocrit (Bld) [Volume fraction] 22.4 % Low 39.0-51.0 [facility] Comment on above: Order Comment: Speci men Type: ARTERIAL BLOOD SPECIMENOrdering Facility: [facility] Address: [address] [place] [address] Performed By: #### A LLBG ####[facility] LABCLIA [id number] [address] [address] [place] Hemoglobin (Bld) [Mass/Vol] 7.2 g/dL Low 13.0-17.0 [facility] Comment on above: Order Comment: Speci men Type: ARTERIAL BLOOD SPECIMENOrdering Facility: [facility] Address: [address] [place] [address] Performed By: #### A LLBG ####[facility] LABIA [id number] [place] [address] [place] Lactate [Moles/Vol] 2.9 mmol/L High 0.5-2.2 [facility] Comment on above: Order Comment: Speci men Type: ARTERIAL BLOOD SPECIMENOrdering Facility: [facility] Address: [address] [place] [address] Performed By: #### A LLBG ####[facility] LABIA [id number] [place] [id number] [place] Methemoglobin (Bld) [Mass fraction] 1.0 % Normal 0.0-1.5 [facility] Comment on above: Order Comment: Speci men Type: ARTERIAL BLOOD SPECIMENOrdering Facility: [facility] Address: [address] [place] [address] Performed By: #### A LLBG ####[facility] LABIA [id number] [place] [id number] [place] O2 THERAPY RA=Room Air Normal [facility] Comment on above: Order Comment: Speci men Type: ARTERIAL BLOOD SPECIMENOrdering Facility: [facility] Address: [address] [place], [place] [id number] Performed By: #### A LLBG ####[facility] LABCLIA [id number] [address] [address] [place] Oxygen (Bld) [Partial pressure] 94 mm Hg Normal 85-95 [facility] Comment on above: Order Comment: Speci men Type: ARTERIAL BLOOD SPECIMENOrdering Facility: [facility] Address: [address] [place] [address] Performed By: #### A LLBG ####[facility] LABCLIA [id number] [place] [address] [place] Oxyhemoglobin (BldA) [Mass fraction] 96 % Normal 95-98 [facility] Comment on above: Order Comment: Speci men Type: ARTERIAL BLOOD SPECIMENOrdering Facility: [facility] Address: [address] [place] [address] Performed By: #### A LLBG ####[facility] LABIA [id number] [place] [address] [place] pH (Bld) 7.46 [pH] High 7.35-7.45 [facility] Comment on above: Order Comment: Speci men Type: ARTERIAL BLOOD SPECIMENOrdering Facility: [facility] Address: [address] [place] [address] Performed By: #### A LLBG ####[facility] LABIA [id number] [place] [address] [place] PO2 / FIO2 RATIO 448 mmHg Normal >300 [facility] Comment on above: Order Comment: Speci men Type: ARTERIAL BLOOD SPECIMENOrdering Facility: [facility] Address: [address] [place] [address] Performed By: #### A LLBG ####[facility] LABCLIA [id number] [place] [id number] [place] Potassium [Moles/Vol] 3.9 mmol/L Normal 3.5-5.0 [facility] Comment on above: Order Comment: Speci men Type: ARTERIAL BLOOD SPECIMENOrdering Facility: [facility] Address: [address] [place] [address] Performed By: #### A LLBG ####[facility] LABIA [id number] [place] [address] [place] Sodium [Moles/Vol] 124 mmol/L Low 136-144 [facility] Comment on above: Order Comment: Speci men Type: ARTERIAL BLOOD SPECIMENOrdering Facility: [facility] Address: [address] [place] [address] Performed By: #### A LLBG ####[facility] LABCLIA [id number] [place] [address] [place] Bacteria Ur Culton Bacteria identified Cx Nom (U) Normal [facility] Comment on above: Performed By: #### 6 30-4, 69780-4 ####[facility] LABCLIA [id number] [place] [address] [place] Basic metabolic 2000 panelon 11-12-2024 Anion gap [Moles/Vol] 11 mmol/L Normal 8-15 [facility] Comment on above: Order Comment: Speci men Type: BLOOD SPECIMENOrdering Facility: [facility] Address: [address] [place] [address] Performed By: #### 2 4321-2, 57502-2, 2777-1 ####[facility] LABCLIA [id number] [place] [address] [place] Calcium [Mass/Vol] 9.2 mg/dL Normal 8.5-10.2 [facility] Comment on above: Order Comment: Speci men Type: BLOOD SPECIMENOrdering Facility: [facility] Address: [address] [place] [address] Performed By: #### 2 4321-2, 59638-4, 2777-1 ####[facility] LABCLIA [id number] [place] [id number] [place] Chloride [Moles/Vol] 99 mmol/L Normal 98-107 [facility] Comment on above: Order Comment: Speci men Type: BLOOD SPECIMENOrdering Facility: [facility] Address: [address] [place] [address] Performed By: #### 2 4321-2, 15888-5, 2776-08 ####[facility] LABCLIA [id number] [place] [address] [place] CO2 [Moles/Vol] 14 mmol/L Low 22-30 [facility] Comment on above: Order Comment: Speci men Type: BLOOD SPECIMENOrdering Facility: [facility] Address: [address] [place] [address] Performed By: #### 2 4321-2, 88644-3, 2776-08 ####[facility] LABCLIA [id number] [place] [address] [place] Creatinine [Mass/Vol] 1.22 mg/dL Normal 0.73-1.22 [facility] Comment on above: Order Comment: Speci men Type: BLOOD SPECIMENOrdering Facility: [facility] Address: [address] [place] [address] Performed By: #### 2 4321-2, 47406-1, 2776-08 ####[facility] LABIA [id number] [place] [address] [place] Creatinine and Glomerular filtration rate.predicted panel (S/P/Bld) 69 mL/min/1.73m??? Normal >=60 [facility] Comment on above: Order Comment: Speci men Type: BLOOD SPECIMENOrdering Facility: [facility] Address: [address] [place] [address] Result Comment: Patric mated Glomerular Filtration Rate [...] actual GFR. Performed By: #### 2 4321-2, 56995-9, 2776-1 ####[facility] LABCLIA [id number] [place] [id number] [place] Glucose [Mass/Vol] 304 mg/dL High 74-99 [facility] Comment on above: Order Comment: Speci men Type: BLOOD SPECIMENOrdering Facility: [facility] Address: [address] [place] [address] Result Comment: The [place] Diabetes [employer] (ADA) provides guidance for cutoff [...] Standards of Medical Care in Diabetes 2016, [place] [employer]. Diabetes Care. 2016.39(Suppl 1). Performed By: #### 2 4321-2, 04732-5, 2777- ####[facility] LABCLIA [id number] [place] [address] [place] Potassium [Moles/Vol] 4.3 mmol/L Normal 3.7-5.1 [facility] Comment on above: Order Comment: Speci men Type: BLOOD SPECIMENOrdering Facility: [facility] Address: [address] [place] [address] Performed By: #### 2 4321-2, 78180-4, 2777- ####[facility] LABCLIA [id number] [place] [address] [place] Sodium [Moles/Vol] 124 mmol/L Low 136-144 [facility] Comment on above: Order Comment: Speci men Type: BLOOD SPECIMENOrdering Facility: [facility] Address: [address] [place] [address] Performed By: #### 2 4321-2, 80111-6, 2777-1 ####[facility] LABCLIA [id number] [address] [place] [address] [place] Urea nitrogen [Mass/Vol] 22 mg/dL Normal 9-24 [facility] Comment on above: Order Comment: Speci men Type: BLOOD SPECIMENOrdering Facility: [facility] Address: [address] [place] [address] Performed By: #### 2 4321-2, 35324-9, 2777-1 ####[facility] LABCLIA [id number] [address] [place] [address] [place] CASE MGT INIT ASSESon 2024 CASE MGT INIT ASSES Normal [facility] CBC panel Auto (Bld)on 11-12 Erythrocyte distribution width (RBC) [Ratio] 16.9 % High 11.5-15.0 [facility] Comment on above: Order Comment: Speci men Type: BLOOD SPECIMENOrdering Facility: [facility] Address: [address] [place] [address] Performed By: #### 5 8410-2 ####[facility] LABIA [id number] [place] [id number] [place] Hematocrit (Bld) [Volume fraction] 21.7 % Low 39.0-51.0 [facility] Comment on above: Order Comment: Speci men Type: BLOOD SPECIMENOrdering Facility: [facility] Address: [address] [place] [address] Performed By: #### 5 8410-2 ####[facility] LABCLIA [id number] [address] [address] [place] Hemoglobin (Bld) [Mass/Vol] 7.5 g/dL Low 13.0-17.0 [facility] Comment on above: Order Comment: Speci men Type: BLOOD SPECIMENOrdering Facility: [facility] Address: [address] [place] [address] Performed By: #### 5 8410-2 ####[facility] LABIA [id number] [place] [address] [place] MCH (RBC) [Entitic mass] 31.5 pg Normal 26.0-34.0 [facility] Comment on above: Order Comment: Speci men Type: BLOOD SPECIMENOrdering Facility: [facility] Address: [address] [place] [address] Performed By: #### 5 8410-2 ####[facility] [id number] [place] [address] [place] MCHC (RBC) [Mass/Vol] 34.6 g/dL Normal 30.5-36.0 [facility] Comment on above: Order Comment: Speci men Type: BLOOD SPECIMENOrdering Facility: [facility] Address: [address] [place] [address] Performed By: #### 5 8410-2 ####[facility] [id number] [address] [place] MCV (RBC) [Entitic vol] 91.2 fL Normal 80.0-100.0 [facility] Comment on above: Order Comment: Speci men Type: BLOOD SPECIMENOrdering Facility: [facility] Address: [address] [place] [address] Performed By: #### 5 8410-2 ####[facility] [id number] [place] [address] [place] Nucleated RBC (Bld) [#/Vol] 10*3/uL Normal <0.01 [facility] Comment on above: Order Comment: Speci men Type: BLOOD SPECIMENOrdering Facility: [facility] Address: [address] [place] [address] Performed By: #### 5 8410-2 ####[facility] [id number] [place] [address] [place] Platelet mean volume (Bld) [Entitic vol] 10.8 fL Normal 9.0-12.7 [facility] Comment on above: Order Comment: Speci men Type: BLOOD SPECIMENOrdering Facility: [facility] Address: [address] [place] [address] Performed By: #### 5 8410-2 ####[facility] LABCLIA [id number] [place] [address] [place] Platelets (Bld) [#/Vol] 31 10*3/uL Low 150-400 [facility] Comment on above: Order Comment: Speci men Type: BLOOD SPECIMENOrdering Facility: [facility] Address: [address] [place] [address] Result Comment: Resu lts checked and verified.No clot detected. Performed By: #### 5 8410-2 ####[facility] LABIA [id number] [place] [address] [place] RBC (Bld) [#/Vol] 2.38 10*6/uL Low 4.20-6.00 [facility] Comment on above: Order Comment: Speci men Type: BLOOD SPECIMENOrdering Facility: [facility] Address: [address] [place] [address] Performed By: #### 5 8410-2 ####[facility] LABIA [id number] [place] [address] [place] WBC (Bld) [#/Vol] 6.35 10*3/uL Normal 3.70-11.00 [facility] Comment on above: Order Comment: Speci men Type: BLOOD SPECIMENOrdering Facility: [facility] Address: [address] [place] [address] Performed By: #### 5 8410-2 ####[facility] LABCLIA [id number] [place] [address] [place] Erythrocyte distribution width (RBC) [Ratio] 17.3 % High 11.5-15.0 [facility] Comment on above: Order Comment: Speci men Type: BLOOD SPECIMENOrdering Facility: [facility] Address: [address] [place] [address] Performed By: #### 5 8410-2 ####[facility] LABIA [id number] [place] [address] [place] Hematocrit (Bld) [Volume fraction] 22.9 % Low 39.0-51.0 [facility] Comment on above: Order Comment: Speci men Type: BLOOD SPECIMENOrdering Facility: [facility] Address: [address] [place] [address] Performed By: #### 5 8410-2 ####[facility] LABIA [id number] [place] [address] [place] Hemoglobin (Bld) [Mass/Vol] 7.9 g/dL Low 13.0-17.0 [facility] Comment on above: Order Comment: Speci men Type: BLOOD SPECIMENOrdering Facility: [facility] Address: [address] [place] [address] Performed By: #### 5 8410-2 ####[facility] LABIA [id number] [place] [address] [place] MCH (RBC) [Entitic mass] 31.5 pg Normal 26.0-34.0 [facility] Comment on above: Order Comment: Speci men Type: BLOOD SPECIMENOrdering Facility: [facility] Address: [address] [place] [address] Performed By: #### 5 8410-2 ####[facility] LABIA [id number] [place] [address] [place] MCHC (RBC) [Mass/Vol] 34.5 g/dL Normal 30.5-36.0 [facility] Comment on above: Order Comment: Speci men Type: BLOOD SPECIMENOrdering Facility: [facility] Address: [address] [place] [address] Performed By: #### 5 8410-2 ####[facility] LABCLIA [id number] [place] [address] [place] MCV (RBC) [Entitic vol] 91.2 fL Normal 80.0-100.0 [facility] Comment on above: Order Comment: Speci men Type: BLOOD SPECIMENOrdering Facility: [facility] Address: [address] [place] [address] Performed By: #### 5 8410-2 ####[facility] LABIA [id number] [place] [address] [place] Nucleated RBC (Bld) [#/Vol] 10*3/uL Normal <0.01 [facility] Comment on above: Order Comment: Speci men Type: BLOOD SPECIMENOrdering Facility: [facility] Address: [address] [place] [address] Performed By: #### 5 8410-2 ####[facility] LABIA [id number] [place] [address] [place] Platelet mean volume (Bld) [Entitic vol] 11.6 fL Normal 9.0-12.7 [facility] Comment on above: Order Comment: Speci men Type: BLOOD SPECIMENOrdering Facility: [facility] Address: [address] [place] [address] Performed By: #### 5 8410-2 ####[facility] LABIA [id number] [place] [address] [place] Platelets (Bld) [#/Vol] 33 10*3/uL Low 150-400 [facility] Comment on above: Order Comment: Speci men Type: BLOOD SPECIMENOrdering Facility: [facility] Address: [address] [place] [address] Result Comment: Resu lts checked and verified.No clot detected. Performed By: #### 5 8410-2 ####[facility] LABCLIA [id number] [place] [address] [place] RBC (Bld) [#/Vol] 2.51 10*6/uL Low 4.20-6.00 [facility] Comment on above: Order Comment: Speci men Type: BLOOD SPECIMENOrdering Facility: [facility] Address: [address] [place] [address] Performed By: #### 5 8410-2 ####[facility] LABIA [id number] [place] [address] [place] WBC (Bld) [#/Vol] 7.27 10*3/uL Normal 3.70-11.00 [facility] Comment on above: Order Comment: Speci men Type: BLOOD SPECIMENOrdering Facility: [facility] Address: [address] [place] [address] Performed By: #### 5 8410-2 ####[facility] LABIA [id number] [place] [address] [place] CITRATED PLATELET COUNTon CITRATED PLATELET COUNT (WAM) 33 k/uL Low 150-400 [facility] Comment on above: Order Comment: Speci men Type: BLOOD SPECIMENOrdering Facility: [facility] Address: [address] [place] [address] Result Comment: Plat elet count confirmed by manual review of peripheral blood smear. No clot detected. Performed By: #### C ITPLT ####[facility] LABIA [id number] [place] [address] [place] CNCNPATEDon 11-12-2024 CNCNPATED Normal [facility] CNPNon 11-12-2024 CNPN Normal [facility] CONFIRM BLOOD TYPEon 025 ABO O Normal [facility] Comment on above: Order Comment: Speci men Type: BLOOD SPECIMENOrdering Facility: [facility] Address: [address] [place] [address] Performed By: #### C ONABO ####[facility] BLOOD BANKIA [id number] [place] [address] [place] Rh Nom (Bld) Positive Normal [facility] Comment on above: Order Comment: Speci men Type: BLOOD SPECIMENOrdering Facility: [facility] Address: [address] [place] [address] Performed By: #### C ONABO ####[facility] BANKCLIA [id number] [place] [address] [place] CONSULTon 11-12-2024 CONSULT Normal [facility] CONSULT Normal [facility] CONSULT Normal [facility] CONSULT Normal [facility] CONSULT Normal [facility] CONSULT Normal [facility] CT CHEST WO IVCONon 11-13-19 CT CHEST WO IVCON Normal [facility] D dimer FEU PPP-mCncon 11-12 Fibrin D-dimer FEU (PPP) [Mass/Vol] 3850 ng/mL FEU High <500 [facility] Comment on above: Order Comment: Speci men Type: BLOOD SPECIMENOrdering Facility: [facility] Address: [address] [place] [address] Performed By: #### 4 8065-7 ####[facility] LABIA [id number] [place] [address] [place] ECHO WITH AGITATED SALINE CO NTRASTon 11-12-2024 ECHO WITH AGITATED SALINE CONTRAST Normal [facility] Fibrin D-dimer FEU (PPP) [Ma ss/Vol]on 11-12-2024 D DIMER AGE-RELATED CUTOFF 580 ng/mL FEU Normal [facility] Comment on above: Order Comment: Speci men Type: BLOOD SPECIMENOrdering Facility: [facility] Address: [address] [place] [address] Performed By: #### 4 8065-7 ####[facility] LABCLIA [id number] [place] [address] [place] Hepatic function 2000 panelo n 11-12-2024 Albumin [Mass/Vol] 3.0 g/dL Low 3.9-4.9 [facility] Comment on above: Order Comment: Speci men Type: BLOOD SPECIMENOrdering Facility: [facility] Address: [address] [place] [address] Performed By: #### 2 4321-2, 72089-3, 2777-1 ####[facility] LABCLIA [id number] [facility] [place] [address] [place] ALP [Catalytic activity/Vol] 252 U/L High 38-113 [facility] Comment on above: Order Comment: Speci men Type: BLOOD SPECIMENOrdering Facility: [facility] Address: [address] [place] [address] Performed By: #### 2 4321-2, 43975-1, 277- ####[facility] LABCLIA [id number] [place] [address] [place] ALT [Catalytic activity/Vol] 24 U/L Normal 10-54 [facility] Comment on above: Order Comment: Speci men Type: BLOOD SPECIMENOrdering Facility: [facility] Address: [address] [place] [address] Performed By: #### 2 4321-2, 02146-0, 2776- ####[facility] LABCLIA [id number] [place] [id number] [place] AST [Catalytic activity/Vol] 41 U/L High 14-40 [facility] Comment on above: Order Comment: Speci men Type: BLOOD SPECIMENOrdering Facility: [facility] Address: [address] [place] [address] Performed By: #### 2 4321-2, 82368-0, 2776- ####[facility] LABCLIA [id number] [facility] [address] [place] [address] [place] Bilirubin [Mass/Vol] 1.8 mg/dL High 0.2-1.3 [facility] Comment on above: Order Comment: Speci men Type: BLOOD SPECIMENOrdering Facility: [facility] Address: [address] [place] [address] Performed By: #### 2 4321-2, 92736-9, 2777- ####[facility] LABCLIA [id number] [place] [address] [place] Bilirubin.conjugated [Mass/Vol] 0.9 mg/dL High <0.3 [facility] Comment on above: Order Comment: Speci men Type: BLOOD SPECIMENOrdering Facility: [facility] Address: [address] [place] [address] Result Comment: Resu lts may be falsely decreased due to interference from hemolysis. Suggest reorder as clinically indicated. Performed By: #### 2 4321-2, 61895-4, 2777- ####[facility] LABCLIA [id number] [place] [address] [place] Protein [Mass/Vol] 5.5 g/dL Low 6.3-8.0 [facility] Comment on above: Order Comment: Speci men Type: BLOOD SPECIMENOrdering Facility: [facility] Address: [address] [place] [address] Performed By: #### 2 4321-2, 23313-1, 2777 ####[facility] LABCLIA [id number] [place] [address] [place] MEDICAL EMERon 11-12-2024 MEDICAL KRISTINA Normal [facility] NURSING PROGon 11-12-2024 NURSING PROG Normal [facility] NURSING PROG Normal [facility] NURSING PROG Normal [facility] NURSING PROG Normal [facility] NUTRITIONon 11-12-2024 NUTRITION Normal [facility] PTT, ANTICOAGULANT THERAPYon 11-12-2024 aPTT Coag (PPP) [Time] 62.6 s High 23.0-32.4 [facility] Comment on above: Order Comment: Speci men Type: BLOOD SPECIMENOrdering Facility: [facility] Address: [address] [place] [address] Performed By: #### P TTA ####[facility] LABCLIA [id number] [place] [address] [place] Phosphate SerPl-mCncon 11-12 Phosphate [Mass/Vol] 2.3 mg/dL Low 2.7-4.8 [facility] Comment on above: Order Comment: Speci men Type: BLOOD SPECIMENOrdering Facility: [facility] Address: [address] [place] [address] Performed By: #### 2 4321-2, 08912-1, 2777-1 ####[facility] LABIA [id number] [address] [place] SOCIAL WORKon 11-12-2024 SOCIAL WORK Normal [facility] THERAPY NTon 11-12-2024 THERAPY NT Normal [facility] THERAPY NT Normal [facility] THROMBOGRAPH PANELon 025 Clot angle TEG (Bld) [Angle] 32.8 degrees Low 47.0-74.0 [facility] Comment on above: Order Comment: Speci men Type: BLOOD SPECIMENOrdering Facility: [facility] Address: [address] [place] [address] Performed By: #### T EGPNP ####[facility] LABIA [id number] [address] [place] Clot Lysis 30 Min post maximum clot amplitude TEG (Bld) [Length fraction] 0.0 % Normal 0.0-8.0 [facility] Comment on above: Order Comment: Speci men Type: BLOOD SPECIMENOrdering Facility: [facility] Address: [address] [place] [address] Performed By: #### T EGPNP ####[facility] LABIA [id number] [address] [place] Clotting time TEG (Bld) 5.0 minutes Normal 4.0-10.0 [facility] Comment on above: Order Comment: Speci men Type: BLOOD SPECIMENOrdering Facility: [facility] Address: [address] [place] [address] Performed By: #### T EGPNP ####[facility] LABIA [id number] [place] [address] [place] Coagulation index TEG Qn (Bld) -8.4 Low -4.6-3.2 [facility] Comment on above: Order Comment: Speci men Type: BLOOD SPECIMENOrdering Facility: [facility] Address: [address] [place] [address] Result Comment: This test was developed, and its performance characteristics determined by the [facility] Department of Pathology and Laboratory Medicine. It has not been cleared or approved by the FDA. The [facility] Department of Pathology and Laboratory Medicine is regulated under CLIA as qualified to perform high-complexity testing. This test is used for clinical purposes. It should not be regarded as investigational or for research. Performed By: #### T EGPNP ####[facility] LABIA [id number] [place] [address] [place] Maximum clot firmness TEG (Bld) [Length] 28.5 mm Low 51.0-75.0 [facility] Comment on above: Order Comment: Speci men Type: BLOOD SPECIMENOrdering Facility: [facility] Address: [address] [place] [address] Performed By: #### T EGPNP ####[facility] LABIA [id number] [place] [id number] [place] Thromboelastography after addtion of heparinase panel (Bld) Normal [facility] Comment on above: Order Comment: Speci men Type: BLOOD SPECIMENOrdering Facility: [facility] Address: [address] [place] [address] Result Comment: A th romboelastograph (TEG) study [...] timely manner. Performed By: #### T EGPNP ####[facility] LABCLIA [id number] [place] [address] [place] TOXICOLOGY SCREEN, ROUTINE U RINEon 11-12-2024 Amphetamines Confirm (U) [Mass/Vol] Negative Normal Negative [facility] Comment on above: Order Comment: Speci men Type: URINE SPECIMENOrdering Facility: [facility] Address: [address] [place] [address] Result Comment: Cuto ff threshold at 1000 ng/mL. Performed By: #### U TOX2 ####[facility] LABCLIA [id number] [place] [address] [place] BARBITURATES, URINE Negative Normal [facility] Comment on above: Order Comment: Speci men Type: URINE SPECIMENOrdering Facility: [facility] Address: [address] [place] [address] Result Comment: Cuto ff threshold at 200 ng/mL. Performed By: #### U TOX2 ####[facility] LABCLIA [id number] [place] [address] [place] BENZODIAZEPINES, UR Negative Normal [facility] Comment on above: Order Comment: Speci men Type: URINE SPECIMENOrdering Facility: [facility] Address: [address] [place] [address] Result Comment: Cuto ff threshold at 200 ng/mL. Performed By: #### U TOX2 ####[facility] LABCLIA [id number] [place] [address] [place] Cannabinoids Screen Ql (U) Negative Normal Negative [facility] Comment on above: Order Comment: Speci men Type: URINE SPECIMENOrdering Facility: [facility] Address: [address] [place] [address] Result Comment: Cuto ff threshold at 50 ng/mL. Performed By: #### U TOX2 ####[facility] LABCLIA [id number] [place] [address] [place] Cocaine Ql (U) Negative Normal Negative [facility] Comment on above: Order Comment: Speci men Type: URINE SPECIMENOrdering Facility: [facility] Address: [address] [place] [address] Result Comment: Cuto ff threshold at 300 ng/mL. Performed By: #### U TOX2 ####[facility] LABCLIA [id number] [place] [address] [place] Ethanol (U) [Mass/Vol] <11 Normal <11 [facility] Comment on above: Order Comment: Speci men Type: URINE SPECIMENOrdering Facility: [facility] Address: [address] [place] [address] Performed By: #### U TOX2 ####[facility] LABCLIA [id number] [place] [id number] [place] Opiates Screen Ql (U) Negative Normal Negative [facility] Comment on above: Order Comment: Speci men Type: URINE SPECIMENOrdering Facility: [facility] Address: [address] [place] [address] Result Comment: Cuto ff threshold at 300 ng/mL. Performed By: #### U TOX2 ####[facility] LABCLIA [id number] [place] [address] [place] oxyCODONE cutoff Screen (U) [Mass/Vol] Positive Abnormal Negative [facility] Comment on above: Order Comment: Speci men Type: URINE SPECIMENOrdering Facility: [facility] Address: [address] [place] [address] Result Comment: Cuto ff threshold at 100 ng/mL. Performed By: #### U TOX2 ####[facility] LABCLIA [id number] [place] [address] [place] Phencyclidine Ql (U) Negative Normal Negative [facility] Comment on above: Order Comment: Speci men Type: URINE SPECIMENOrdering Facility: [facility] Address: [address] [place] [address] Result Comment: Cuto ff threshold at 25 ng/mL. Performed By: #### U TOX2 ####[facility] LABCLIA [id number] [place] [address] [place] TYPE + SCREENon 11-12-2024 ABO O Normal [facility] Comment on above: Order Comment: Speci men Type: BLOOD SPECIMENOrdering Facility: [facility] Address: [address] [place] [address] Performed By: #### T SCR ####[facility] BLOOD BANKIA [id number] [place] [address] [place] Rh Nom (Bld) Positive Normal [facility] Comment on above: Order Comment: Speci men Type: BLOOD SPECIMENOrdering Facility: [facility] Address: [address] [place] [address] Performed By: #### T SCR ####[facility] BLOOD BANKIA [id number] [place] [address] [place] TYPE AND SCREEN EXPIRATION 11/15/2024 23:59 Normal [facility] Comment on above: Order Comment: Speci men Type: BLOOD SPECIMENOrdering Facility: [facility] Address: [address] [place] [address] Performed By: #### T SCR ####[facility] [id number] [place] [address] [place] Urinalysis complete panel (U )on 11-12-2024 BACTERIA UL 1553.2 uL High Negative [facility] Comment on above: Order Comment: Speci men Type: URINE SPECIMENOrdering Facility: [facility] Address: [address] [place] [address] Performed By: #### 6 30-4, 93978-8 ####[facility] LABCLIA [id number] [place] [address] [place] Bilirubin Ql (U) 1+ Abnormal Negative [facility] Comment on above: Order Comment: Speci men Type: URINE SPECIMENOrdering Facility: [facility] Address: [address] [place] [address] Result Comment: Sugg est correlation with clinical findings and serum bilirubin if clinically indicated. Performed By: #### 6 30-4, 49801-4 ####[facility] LABCLIA [id number] [place] [address] [place] Clarity (Unsp spec) Cloudy Abnormal [facility] Comment on above: Order Comment: Speci men Type: URINE SPECIMENOrdering Facility: [facility] Address: [address] [place] [address] Performed By: #### 6 30-4, 57852-0 ####[facility] LABCLIA [id number] [place] [address] [place] Color (U) [place] Abnormal Yellow [facility] Comment on above: Order Comment: Speci men Type: URINE SPECIMENOrdering Facility: [facility] Address: [address] [place] [address] Performed By: #### 6 30-4, 85530-9 ####[facility] LABCLIA [id number] [address] [place] [address] [facility] [place] Epithelial cells LM.HPF (Urine sed) [#/Area] None Seen Normal [facility] Comment on above: Order Comment: Speci men Type: URINE SPECIMENOrdering Facility: [facility] Address: [address] [place] [address] Performed By: #### 6 30-4, 78739-1 ####[facility] LABCLIA [id number] [address], [facility] [place] Glucose Test strip (U) [Mass/Vol] Negative Normal Negative [facility] Comment on above: Order Comment: Speci men Type: URINE SPECIMENOrdering Facility: [facility] Address: [address] [place] [address] Performed By: #### 6 30-4, 79515-0 ####[facility] LABCLIA [id number] [place] [address] [place] Hemoglobin Ql (U) 3+ Abnormal Negative [facility] Comment on above: Order Comment: Speci men Type: URINE SPECIMENOrdering Facility: [facility] Address: [address] [place] [address] Performed By: #### 6 30-4, 74213-1 ####[facility] LABCLIA [id number] [address], [facility] [place] Hyaline casts (Urine sed) [#/Area] 0 /[LPF] Normal 0 /LPF [facility] Comment on above: Order Comment: Speci men Type: URINE SPECIMENOrdering Facility: [facility] Address: [address] [place] [address] Performed By: #### 6 30-4, 47551-7 ####[facility] LABCLIA [id number] [address], [facility] [place] Ketones Ql (U) Negative Normal Negative [facility] Comment on above: Order Comment: Speci men Type: URINE SPECIMENOrdering Facility: [facility] Address: [address] [place], [place] [address] Performed By: #### 6 30-4, 11802-3 ####[facility] LABCLIA [id number] [address] [place] [address] [place] Leukocyte esterase Test strip Ql (U) 2+ Abnormal Negative [facility] Comment on above: Order Comment: Speci men Type: URINE SPECIMENOrdering Facility: [facility] Address: [address] [place] [address] Performed By: #### 6 30-4, 13973-3 ####[facility] LABCLIA [id number] [address], [facility] [place] Nitrite Ql (U) Negative Normal Negative [facility] Comment on above: Order Comment: Speci men Type: URINE SPECIMENOrdering Facility: [facility] Address: [address] [place] [address] Performed By: #### 6 30-, 88967-3 ####[facility] LABCLIA [id number] [address], [facility] [place] pH (U) 6.0 [pH] Normal <8.5 [facility] Comment on above: Order Comment: Speci men Type: URINE SPECIMENOrdering Facility: [facility] Address: [address] [place] [address] Performed By: #### 6 30-4, 82185-6 ####[facility] LABCLIA [id number] [address] [place] [address] [place] Protein (U) [Mass/Vol] 3+ Abnormal Negative [facility] Comment on above: Order Comment: Speci men Type: URINE SPECIMENOrdering Facility: [facility] Address: [address] [place] [address] Performed By: #### 6 30-4, 83499-3 ####[facility] LABCLIA [id number] [address] [place] [address] [place] RBC LM.HPF (Urine sed) [#/Area] /[HPF] Abnormal 0-2 /HPF [facility] Comment on above: Order Comment: Speci men Type: URINE SPECIMENOrdering Facility: [facility] Address: [address] [place] [address] Performed By: #### 6 30-4, 00927-3 ####[facility] LABIA [id number] [place] [address] [place] Specific gravity (U) [Rel density] 1.019 Normal 1.005-1.030 [facility] Comment on above: Order Comment: Speci men Type: URINE SPECIMENOrdering Facility: [facility] Address: [address] [place] [address] Performed By: #### 6 30-4, 58460-2 ####[facility] LABIA [id number] [place] [address] [place] Urobilinogen Ql (U) 0.2 EU/dL Normal 0.2-1.0 EU/dL [facility] Comment on above: Order Comment: Speci men Type: URINE SPECIMENOrdering Facility: [facility] Address: [address] [place] [address] Performed By: #### 6 30-4, 10427-0 ####[facility] LABIA [id number] [place] [address] [place] WBC LM.HPF (Urine sed) [#/Area] /[HPF] Abnormal 0-5 /HPF [facility] Comment on above: Order Comment: Speci men Type: URINE SPECIMENOrdering Facility: [facility] Address: [address] [place] [address] Performed By: #### 6 30-4, 61027-4 ####[facility] LABCLIA [id number] [place] [address] [place] ALLIED HEALTHon 11-11-2024 ALLIED HEALTH Normal [facility] ALLIED HEALTH Normal [facility] ANTI PLT FACTOR 4 ABon 11-11 Heparin induced platelet IgG Marco Antonio (S) [Interp] Negative Normal Negative [facility] Comment on above: Order Comment: Ezekiel ramirez Type: BLOOD SPECIMENOrdering Facility: [facility] Address: [address] [place] [address] Result Comment: No a nti-platelet factor 4 IgG antibody is detected by ANDERS assay.Heparin-induced thrombocytopenia (HIT) is unlikely, but should be excluded based on clinical factors. Performed By: #### P LATF4 ####[facility] LABIA [id number] [place] [address] [place] Platelet factor 4 Qn (PPP) 0.184 OD Normal <0.400 [facility] Comment on above: Order Comment: Ezekiel ramirez Type: BLOOD SPECIMENOrdering Facility: [facility] Address: [address] [place] [address] Result Comment: Not calculated Performed By: #### P LATF4 ####[facility] [id number] [place] [address] [place] Albumin Fld-mCncon Albumin (Body fld) [Mass/Vol] <0.2 Normal See Comment [facility] Comment on above: Order Comment: Ezekiel ramirez Type: FLUID SPECIMENOrdering Facility: [facility] Address: [address] [place] [address] Result Comment: Body Fluid Albumin may be [...] document C49A. PAULETTE Diaz: Clinical Laboratory Standards [place]: 2007.2. Amy JACKSON. Serum to ascites albumin gradient. UpToDate. 2015. Accessed on November 15, 2015.This test was developed, and its performance characteristics determined by the [facility] Department of Pathology and Laboratory Medicine. It has not been cleared or approved by the FDA. The [facility] Department of Pathology and Laboratory Medicine is regulated under CLIA as qualified to perform high-complexity testing. This test is used for clinical purposes. It should not be regarded as investigational or for research. Performed By: #### 1 747-5, 1795-4, 50897-8, 2881-1 ####[facility] LABCLIA [id number] [place] [address] [place] Fluid Nom (Body fld) Abdomen Normal [facility] Comment on above: Order Comment: Speci men Type: FLUID SPECIMENOrdering Facility: [facility] Address: [address] [place] [address] Performed By: #### 1 747-5, 1795-4, 84876-8, 2881-1 ####[facility] LABCLIA [id number] [place] [address] [place] Amylase Fld-cCncon 5 Amylase (Body fld) [Catalytic activity/Vol] 14 U/L Normal See Comment [facility] Comment on above: Order Comment: [facility]i [facility] Type: FLUID SPECIMENOrdering Facility: [facility] Address: [address] [place] [address] Result Comment: PLEU RAL FLUIDS:Amylase measurement in [...] document C49-A. PAULETTE Diaz: Clinical Laboratory Standards [place]; 2007.3. Kelby CONCEPCION, John BRAR, Star DJ. Use of cyst fluid CEA, CA19-9, and amylase for evaluation of pancreatic lesions. Clinical Biochemistry. 2009;42:8080-0437.This test was developed, and its performance characteristics determined by the [facility] Department of Pathology and Laboratory Medicine. It has not been cleared or approved by the FDA. The [facility] Department of Pathology and Laboratory Medicine is regulated under CLIA as qualified to perform high-complexity testing. This test is used for clinical purposes. It should not be regarded as investigational or for research. Performed By: #### 1 747-5, 1795-4, 27733-6, 2881-1 ####[facility] LABCLIA [id number] [place] [address] [place] Antithrombin Ag actual/philly l IA (PPP) [Relative mass conc]on 11-11-2024 Antithrombin Ag IA Qn (PPP) 32 % Low 80-120 [facility] Comment on above: Order Comment: Speci men Type: BLOOD SPECIMENOrdering Facility: [facility] Address: [address] [place] [address] Performed By: #### L [id number], HCOAG, 6303-2, 48063-0, 82805-1 ####[facility] LABCLIA [id number] [place] [address] [place] BODY FLUID CELL COUNTon 11-02 Clarity (Unsp spec) Clear Normal [facility] Comment on above: Order Comment: Speci men Type: FLUID SPECIMENOrdering Facility: [facility] Address: [address] [place] [address] Performed By: #### C CBF, [id number] ####[facility] LABCLIA [id number] [address], [place] [address] [place] Color (Body fld) Colorless Normal Yellow [facility] Comment on above: Order Comment: Speci men Type: FLUID SPECIMENOrdering Facility: [facility] Address: [address] [place] [address] Performed By: #### C CBF, [id number] ####[facility] LABCLIA [id number] [place] [address] [place] RBC Manual cnt (Body fld) [#/Vol] 2000 /uL High <2000 [facility] Comment on above: Order Comment: Speci men Type: FLUID SPECIMENOrdering Facility: [facility] Address: [address] [place] [address] Performed By: #### C CBF, [id number] ####[facility] LABCLIA [id number] [place] [address] [place] Specimen source Nom (Body fld) Abdomen Normal [facility] Comment on above: Order Comment: Speci men Type: FLUID SPECIMENOrdering Facility: [facility] Address: [address] [place] [address] Performed By: #### C CBF, [id number] ####[facility] LABCLIA [id number] [facility] [place] [id number] [place] WBC Manual cnt (Body fld) [#/Vol] 70 /uL Normal <1000 [facility] Comment on above: Order Comment: Speci men Type: FLUID SPECIMENOrdering Facility: [facility] Address: [address] [place] [address] Performed By: #### C CBF, [id number] ####[facility] LABCLIA [id number] [address], [facility] [place] Bacteria Bld Culton 11-12-19 25 Bacteria identified Cx Nom (Bld) CULTURE, BLOOD: No growth 5 days GRAM STAIN: This blood culture had less than the recommended 8 ml per bottle, which could decrease the sensitivity of the test. Normal [facility] Comment on above: Performed By: #### 6 00-7 ####[facility] LABCLIA [id number] [place] [id number] [place] Bacteria identified Cx Nom (Bld) CULTURE, BLOOD: No growth 5 days Normal [facility] Comment on above: Performed By: #### 6 00-7 ####[facility] LABCLIA [id number] [address] [place] Bacteria Fld Culton 11-12-19 25 Bacteria identified Cx Nom (Body fld) CULTURE, BODY FLD: No growth GRAM STAIN: No organisms seen Many Polymorphonuclear leukocytes Gram stain performed on cytospun specimen. Gram stain from primary specimen Normal [facility] Comment on above: Performed By: #### 6 35-3, 611-4 ####[facility] LABIA [id number] [place] [address] [place] Bacteria Spec Anaerobe Culto n 11-11-2024 Bacteria identified Anaer cx Nom (Unsp spec) Negative Normal [facility] Comment on above: Performed By: #### 6 35-3, 611-4 ####[facility] LABCLIA [id number] [address] [address] [place] Basic metabolic 2000 panelon 11-11-2024 Anion gap [Moles/Vol] 12 mmol/L Normal 8-15 [facility] Comment on above: Order Comment: Speci men Type: BLOOD SPECIMENOrdering Facility: [facility] Address: [address] [place] [address] Performed By: #### 2 276-4, 01928-5, 23318-2, 32158-7, 2777-1, 23091-7 ####[facility] LABCLIA [id number] [facility] [address] [place] [address] [place] Calcium [Mass/Vol] 9.1 mg/dL Normal 8.5-10.2 [facility] Comment on above: Order Comment: Speci men Type: BLOOD SPECIMENOrdering Facility: [facility] Address: [address] [place], [place] [address] Performed By: #### 2 276-4, 39251-9, 12094-4, 41543-1, 2777-1, 76735-3 ####[facility] LABCLIA [id number] [address] [place] [address] [place] Chloride [Moles/Vol] 97 mmol/L Low 98-107 [facility] Comment on above: Order Comment: Speci men Type: BLOOD SPECIMENOrdering Facility: [facility] Address: [address] [place] [address] Performed By: #### 2 276-4, 70306-5, 90767-2, 50728-7, 2777-1, 25084-0 ####[facility] LABCLIA [id number] [address] [address] [place] CO2 [Moles/Vol] 14 mmol/L Low 22-30 [facility] Comment on above: Order Comment: Speci men Type: BLOOD SPECIMENOrdering Facility: [facility] Address: [address] [place], [place] [address] Performed By: #### 2 276-4, 61195-0, 90512-9, 61264-9, 7-1, 91282-9 ####[facility] LABCLIA [id number] [address] [address] [place] Creatinine [Mass/Vol] 1.35 mg/dL High 0.73-1.22 [facility] Comment on above: Order Comment: Speci men Type: BLOOD SPECIMENOrdering Facility: [facility] Address: [address] [place], [place] [address] Performed By: #### 2 276-4, 80433-6, 90443-1, 32031-7, 2777-1, 59813-3 ####[facility] [id number] [place] [address] [place] Creatinine and Glomerular filtration rate.predicted panel (S/P/Bld) 61 mL/min/1.73m??? Normal >=60 [facility] Comment on above: Order Comment: Ezekiel ramirez Type: BLOOD SPECIMENOrdering Facility: [facility] Address: [address] [place] [address] Result Comment: Patric mated Glomerular Filtration Rate [...] actual GFR. Performed By: #### 2 276-4, 96605-0, 02435-8, 53566-9, 2777-1, 21331-4 ####[facility] LABIA [id number] [address] [address] [place] Glucose [Mass/Vol] 292 mg/dL High 74-99 [facility] Comment on above: Order Comment: Ezekiel ramirez Type: BLOOD SPECIMENOrdering Facility: [facility] Address: [address] [place] [address] Result Comment: The [place] [employer] (ADA) provides guidance for cutoff [...] Standards of Medical Care in Diabetes 2016, [place] [employer]. Diabetes Care. 2016.39(Suppl 1). Performed By: #### 2 276-4, 99218-6, 62596-8, 46573-0, 2776-1, ####[facility] LABCLIA [id number] [facility] [address] [place] [address] [place] Potassium [Moles/Vol] 3.6 mmol/L Low 3.7-5.1 [facility] Comment on above: Order Comment: Speci men Type: BLOOD SPECIMENOrdering Facility: [facility] Address: [address] [place], [place] [address] Performed By: #### 2 276-4, 09560-2, 46762-2, 46929-0, 2776-1, ####[facility] LABCLIA [id number] [facility] [address] [place] [address] [place] Sodium [Moles/Vol] 123 mmol/L Low 136-144 [facility] Comment on above: Order Comment: Speci men Type: BLOOD SPECIMENOrdering Facility: [facility] Address: [address] [place] [address] Performed By: #### 2 276-4, 90492-2, 37900-4, 35031-0, 2776-, ####[facility] LABCLIA [id number] [address] [place] [address] [place] Urea nitrogen [Mass/Vol] 22 mg/dL Normal 9-24 [facility] Comment on above: Order Comment: Speci men Type: BLOOD SPECIMENOrdering Facility: [facility] Address: [address] [place] [id number] Performed By: #### 2 276-4, 60900-8, 79647-4, 85903-6, 2776-1, ####[facility] LABCLIA [id number] [address] [address] [place] CARDIOLIPIN IGG ABSon 2024 Cardiolipin IgG IA Qn (S) <9.0 Normal <15.0 [facility] Comment on above: Order Comment: Ezekiel ramirez Type: BLOOD SPECIMENOrdering Facility: [facility] Address: [address] [place] [address] Result Comment: <15 GPL [id number] GPL Indeterminate>20 GPL PositiveThe following results were obtained with the [employer] QUANTA Lite TEZ IgG III ANDERS. Cardiolipin IgG values obtained with the different manufacturers' assay methods may not be used interchangeably. The magnitude of the reported IgG levels cannot be correlated to an endpoint titer. Performed By: #### 5 076-5KATHI CARDIM ####[facility] LABIA [id number] 92 [address] [place] CARDIOLIPIN IGM ABSon 2024 Cardiolipin IgM IA Qn (S) <9.0 Normal <12.5 [facility] Comment on above: Order Comment: Ezekiel ramirez Type: BLOOD SPECIMENOrdering Facility: [facility] Address: [address] [place] [address] Result Comment: <12. 5 MPL Ybvmzbcz72.5-20 MPL Indeterminate>20 MPL PositiveThe following results were obtained with the [employer] QUANTA Lite TEZ IgM III ANDERS. Cardiolipin IgM values obtained with the different manufacturers' assay methods may not be used interchangeably. The magnitude of the reported IgM levels cannot be correlated to an endpoint titer.??? Performed By: #### 5 076-5KATHI CARDIM ####[facility] LABIA [id number] [place] [address] [place] CASE MANAGEMon 11-11-2024 CASE MANAGEM Normal [facility] CBC W Auto Differential pane l (Bld)on 11-11-2024 Basophils (Bld) [#/Vol] 0.04 10*3/uL Normal <0.11 [facility] Comment on above: Order Comment: Ezekiel james Type: BLOOD SPECIMENOrdering Facility: [facility] Address: [address] [place] [address] Performed By: #### I PFR, 20132-1, 27097-1 ####[facility] LABCLIA [id number] [place] [id number] [place] Basophils/100 WBC (Bld) 0.4 % Normal [facility] Comment on above: Order Comment: Speci men Type: BLOOD SPECIMENOrdering Facility: [facility] Address: [address] [place] [address] Performed By: #### I PFR, 76486-5, ####[facility] LABCLIA [id number] [place] [address] [place] Differential cell count method Nom (Bld) Auto Normal [facility] Comment on above: Order Comment: Speci men Type: BLOOD SPECIMENOrdering Facility: [facility] Address: [address] [place] [address] Performed By: #### I PFR, 26038-1, ####[facility] LABCLIA [id number] [place] [address] [place] Eosinophils (Bld) [#/Vol] 0.35 10*3/uL Normal <0.46 [facility] Comment on above: Order Comment: Speci men Type: BLOOD SPECIMENOrdering Facility: [facility] Address: [address] [place] [address] Performed By: #### I PFR, 46696-1, ####[facility] LABCLIA [id number] [place] [id number] [place] Eosinophils/100 WBC (Bld) 3.4 % Normal [facility] Comment on above: Order Comment: Speci men Type: BLOOD SPECIMENOrdering Facility: [facility] Address: [address] [place] [address] Performed By: #### I PFR, 71965-4, 92008-3 ####[facility] LABCLIA [id number] [place] [address] [place] Erythrocyte distribution width (RBC) [Ratio] 17.4 % High 11.5-15.0 [facility] Comment on above: Order Comment: Speci men Type: BLOOD SPECIMENOrdering Facility: [facility] Address: [address] [place] [address] Performed By: #### I PFR, 03282-4, 00613-1 ####[facility] LABCLIA [id number] [place] [address] [place] Hematocrit (Bld) [Volume fraction] 24.6 % Low 39.0-51.0 [facility] Comment on above: Order Comment: Speci men Type: BLOOD SPECIMENOrdering Facility: [facility] Address: [address] [place] [address] Performed By: #### I PFR, 57624-1, 36748-9 ####[facility] LABCLIA [id number] [place] [address] [place] Hemoglobin (Bld) [Mass/Vol] 8.4 g/dL Low 13.0-17.0 [facility] Comment on above: Order Comment: Speci men Type: BLOOD SPECIMENOrdering Facility: [facility] Address: [address] [place] [address] Performed By: #### I PFR, 80808-2, 17886-1 ####[facility] LABCLIA [id number] [place] [address] [place] Immature granulocytes (Bld) [#/Vol] 0.08 10*3/uL Normal <0.10 [facility] Comment on above: Order Comment: Speci men Type: BLOOD SPECIMENOrdering Facility: [facility] Address: [address] [place] [address] Performed By: #### I PFR, 79256-2, 94087-3 ####[facility] LABCLIA [id number] [address] [place] Immature granulocytes/100 WBC (Bld) 0.8 % Normal [facility] Comment on above: Order Comment: Speci men Type: BLOOD SPECIMENOrdering Facility: [facility] Address: [address] [place] [address] Performed By: #### I PFR, 67052-2, 82102-7 ####[facility] LABCLIA [id number] [place] [address] [place] Lymphocytes (Bld) [#/Vol] 0.99 10*3/uL Low 1.00-4.00 [facility] Comment on above: Order Comment: Speci men Type: BLOOD SPECIMENOrdering Facility: [facility] Address: [address] [place] [address] Performed By: #### I PFR, 39349-3, 24338-4 ####[facility] LABCLIA [id number] [address] [place] [facility] Lymphocytes/100 WBC (Bld) 9.5 % Normal [facility] Comment on above: Order Comment: Speci men Type: BLOOD SPECIMENOrdering Facility: [facility] Address: [address] [place] [address] Performed By: #### I PFR, 78001-1, 15454-4 ####[facility] LABIA [id number] [place] [address] [place] MCH (RBC) [Entitic mass] 31.9 pg Normal 26.0-34.0 [facility] Comment on above: Order Comment: Speci men Type: BLOOD SPECIMENOrdering Facility: [facility] Address: [address] [place] [address] Performed By: #### I PFR, 63703-3, 72611-8 ####[facility] LABCLIA [id number] [place] [id number] [place] MCHC (RBC) [Mass/Vol] 34.1 g/dL Normal 30.5-36.0 [facility] Comment on above: Order Comment: Speci men Type: BLOOD SPECIMENOrdering Facility: [facility] Address: [address] [place] [address] Performed By: #### I PFR, 84228-6, 22602-5 ####[facility] LABCLIA [id number] [place] [address] [place] MCV (RBC) [Entitic vol] 93.5 fL Normal 80.0-100.0 [facility] Comment on above: Order Comment: Speci men Type: BLOOD SPECIMENOrdering Facility: [facility] Address: [address] [place] [address] Performed By: #### I PFR, 06325-6, ####[facility] LABCLIA [id number] [place] [address] [place] Monocytes (Bld) [#/Vol] 0.97 10*3/uL High <0.87 [facility] Comment on above: Order Comment: Speci men Type: BLOOD SPECIMENOrdering Facility: [facility] Address: [address] [place] [address] Performed By: #### I PFR, 17567-1, ####[facility] LABIA [id number] [place] [address] [place] Monocytes/100 WBC (Bld) 9.3 % Normal [facility] Comment on above: Order Comment: Speci men Type: BLOOD SPECIMENOrdering Facility: [facility] Address: [address] [place] [address] Performed By: #### I PFR, 26319-3, ####[facility] LABCLIA [id number] [place] [id number] [place] Neutrophils (Bld) [#/Vol] 8.00 10*3/uL High 1.45-7.50 [facility] Comment on above: Order Comment: Speci men Type: BLOOD SPECIMENOrdering Facility: [facility] Address: [address] [place] [address] Performed By: #### I PFR, 77656-8, 23167-9 ####[facility] LABCLIA [id number] [place] [address] [place] Neutrophils/100 WBC (Bld) 76.6 % Normal [facility] Comment on above: Order Comment: Speci men Type: BLOOD SPECIMENOrdering Facility: [facility] Address: [address] [place] [address] Performed By: #### I PFR, 24624-1, 59647-3 ####[facility] LABCLIA [id number] [place] [address] [place] Nucleated RBC (Bld) [#/Vol] 10*3/uL Normal <0.01 [facility] Comment on above: Order Comment: Speci men Type: BLOOD SPECIMENOrdering Facility: [facility] Address: [address] [place] [address] Performed By: #### I PFR, 17701-6, 67557-5 ####[facility] LABCLIA [id number] [place] [address] [place] Nucleated RBC/100 WBC (Bld) [Ratio] 0.0 /100 WBC Normal [facility] Comment on above: Order Comment: Speci men Type: BLOOD SPECIMENOrdering Facility: [facility] Address: [address] [place] [address] Performed By: #### I PFR, 75567-5, 25030-8 ####[facility] LABCLIA [id number] [place] [id number] [place] Platelet mean volume (Bld) [Entitic vol] 11.5 fL Normal 9.0-12.7 [facility] Comment on above: Order Comment: Speci men Type: BLOOD SPECIMENOrdering Facility: [facility] Address: [address] [place] [address] Performed By: #### I PFR, 67733-8, 17205-7 ####[facility] LABCLIA [id number] [place] [address] [place] Platelets (Bld) [#/Vol] 43 10*3/uL Low 150-400 [facility] Comment on above: Order Comment: Speci men Type: BLOOD SPECIMENOrdering Facility: [facility] Address: [address] [place] [address] Performed By: #### I PFR, 77737-4, 21260-2 ####[facility] LABIA [id number] [place] [address] [place] RBC (Bld) [#/Vol] 2.63 10*6/uL Low 4.20-6.00 [facility] Comment on above: Order Comment: Speci men Type: BLOOD SPECIMENOrdering Facility: [facility] Address: [address] [place] [address] Performed By: #### I PFR, 49223-6, 49543-7 ####[facility] LABIA [id number] [place] [address] [place] WBC (Bld) [#/Vol] 10.43 10*3/uL Normal 3.70-11.00 [facility] Comment on above: Order Comment: Speci men Type: BLOOD SPECIMENOrdering Facility: [facility] Address: [address] [place] [address] Performed By: #### I PFR, 92917-5, 78082-5 ####[facility] LABIA [id number] [place] [address] [place] Basophils (Bld) [#/Vol] 0.06 10*3/uL Normal <0.11 [facility] Comment on above: Order Comment: Speci men Type: BLOOD SPECIMENOrdering Facility: [facility] Address: [address] [place] [address] Performed By: #### 5 5454-3, 51484-9 ####[facility] LABCLIA [id number] [place] [address] [place] Basophils/100 WBC (Bld) 0.4 % Normal [facility] Comment on above: Order Comment: Speci men Type: BLOOD SPECIMENOrdering Facility: [facility] Address: [address] [place] [address] Performed By: #### 5 5454-3, 24236-3 ####[facility] LABCLIA [id number] [place] [address] [place] Differential cell count method Nom (Bld) Auto Normal [facility] Comment on above: Order Comment: Speci men Type: BLOOD SPECIMENOrdering Facility: [facility] Address: [address] [place] [address] Performed By: #### 5 5454-3, 36600-5 ####[facility] LABCLIA [id number] [place] [address] [place] Eosinophils (Bld) [#/Vol] 0.40 10*3/uL Normal <0.46 [facility] Comment on above: Order Comment: Speci men Type: BLOOD SPECIMENOrdering Facility: [facility] Address: [address] [place] [address] Performed By: #### 5 5454-3, 72217-9 ####[facility] LABCLIA [id number] [facility] [place] [address] [place] Eosinophils/100 WBC (Bld) 2.5 % Normal [facility] Comment on above: Order Comment: Speci men Type: BLOOD SPECIMENOrdering Facility: [facility] Address: [address] [place] [address] Performed By: #### 5 5454-3, 72413-8 ####[facility] LABCLIA [id number] [place] [address] [place] Erythrocyte distribution width (RBC) [Ratio] 18.0 % High 11.5-15.0 [facility] Comment on above: Order Comment: Speci men Type: BLOOD SPECIMENOrdering Facility: [facility] Address: [address] [place] [address] Performed By: #### 5 5454-3, 30336-1 ####[facility] LABIA [id number] [place] [address] [place] Hematocrit (Bld) [Volume fraction] 30.4 % Low 39.0-51.0 [facility] Comment on above: Order Comment: Speci men Type: BLOOD SPECIMENOrdering Facility: [facility] Address: [address] [place] [address] Performed By: #### 5 5454-3, 96709-9 ####[facility] LABIA [id number] [place] [address] [place] Hemoglobin (Bld) [Mass/Vol] 10.2 g/dL Low 13.0-17.0 [facility] Comment on above: Order Comment: Speci men Type: BLOOD SPECIMENOrdering Facility: [facility] Address: [address] [place] [address] Performed By: #### 5 5454-3, 76123-2 ####[facility] LABIA [id number] [place] [address] [place] Immature granulocytes (Bld) [#/Vol] 0.18 10*3/uL High <0.10 [facility] Comment on above: Order Comment: Speci men Type: BLOOD SPECIMENOrdering Facility: [facility] Address: [address] [place] [address] Performed By: #### 5 5454-3, 67464-6 ####[facility] LABCLIA [id number] [place] [address] [place] Immature granulocytes/100 WBC (Bld) 1.1 % Normal [facility] Comment on above: Order Comment: Speci men Type: BLOOD SPECIMENOrdering Facility: [facility] Address: [address] [place] [address] Performed By: #### 5 5454-3, 60159-2 ####[facility] LABCLIA [id number] [place] [address] [place] Lymphocytes (Bld) [#/Vol] 1.19 10*3/uL Normal 1.00-4.00 [facility] Comment on above: Order Comment: Speci men Type: BLOOD SPECIMENOrdering Facility: [facility] Address: [address] [place] [address] Performed By: #### 5 5454-3, 96165-8 ####[facility] LABCLIA [id number] [place] [address] [place] Lymphocytes/100 WBC (Bld) 7.6 % Normal [facility] Comment on above: Order Comment: Speci men Type: BLOOD SPECIMENOrdering Facility: [facility] Address: [address] [place] [address] Performed By: #### 5 5454-3, 98870-0 ####[facility] LABCLIA [id number] [place] [address] [place] MCH (RBC) [Entitic mass] 31.3 pg Normal 26.0-34.0 [facility] Comment on above: Order Comment: Speci men Type: BLOOD SPECIMENOrdering Facility: [facility] Address: [address] [place] [address] Performed By: #### 5 5454-3, 81612-9 ####[facility] LABCLIA [id number] [place] [id number] [place] MCHC (RBC) [Mass/Vol] 33.6 g/dL Normal 30.5-36.0 [facility] Comment on above: Order Comment: Speci men Type: BLOOD SPECIMENOrdering Facility: [facility] Address: [address] [place] [address] Performed By: #### 5 5454-3, 18745-7 ####[facility] LABCLIA [id number] [place] [address] [place] MCV (RBC) [Entitic vol] 93.3 fL Normal 80.0-100.0 [facility] Comment on above: Order Comment: Speci men Type: BLOOD SPECIMENOrdering Facility: [facility] Address: [address] [place] [address] Performed By: #### 5 5454-3, 81541-8 ####[facility] LABIA [id number] [place] [address] [place] Monocytes (Bld) [#/Vol] 1.36 10*3/uL High <0.87 [facility] Comment on above: Order Comment: Speci men Type: BLOOD SPECIMENOrdering Facility: [facility] Address: [address] [place] [address] Performed By: #### 5 5454-3, 35072-5 ####[facility] LABIA [id number] [place] [address] [place] Monocytes/100 WBC (Bld) 8.6 % Normal [facility] Comment on above: Order Comment: Speci men Type: BLOOD SPECIMENOrdering Facility: [facility] Address: [address] [place] [address] Performed By: #### 5 5454-3, 16091-3 ####[facility] LABIA [id number] [place] [address] [place] Neutrophils (Bld) [#/Vol] 12.55 10*3/uL High 1.45-7.50 [facility] Comment on above: Order Comment: Speci men Type: BLOOD SPECIMENOrdering Facility: [facility] Address: [address] [place] [address] Performed By: #### 5 5454-3, 19142-5 ####[facility] LABCLIA [id number] [address] [address] [place] Neutrophils/100 WBC (Bld) 79.8 % Normal [facility] Comment on above: Order Comment: Speci men Type: BLOOD SPECIMENOrdering Facility: [facility] Address: [address] [place] [address] Performed By: #### 5 5454-3, 44216-7 ####[facility] LABIA [id number] [place] [address] [place] Nucleated RBC (Bld) [#/Vol] 10*3/uL Normal <0.01 [facility] Comment on above: Order Comment: Speci men Type: BLOOD SPECIMENOrdering Facility: [facility] Address: [address] [place] [address] Performed By: #### 5 5454-3, 84272-0 ####[facility] LABIA [id number] [place] [address] [place] Nucleated RBC/100 WBC (Bld) [Ratio] 0.0 /100 WBC Normal [facility] Comment on above: Order Comment: Speci men Type: BLOOD SPECIMENOrdering Facility: [facility] Address: [address] [place] [address] Performed By: #### 5 5454-3, 25135-7 ####[facility] LABIA [id number] [address] [address] [place] Platelet mean volume (Bld) [Entitic vol] 12.1 fL Normal 9.0-12.7 [facility] Comment on above: Order Comment: Speci men Type: BLOOD SPECIMENOrdering Facility: [facility] Address: [address] [place] [address] Performed By: #### 5 5454-3, 51804-2 ####[facility] LABIA [id number] [place] [address] [place] Platelets (Bld) [#/Vol] 52 10*3/uL Low 150-400 [facility] Comment on above: Order Comment: Speci men Type: BLOOD SPECIMENOrdering Facility: [facility] Address: [address] [place] [address] Result Comment: Resu lts checked and verified.No clot detected. Performed By: #### 5 5454-3, 85186-1 ####[facility] LABCLIA [id number] [place] [address] [place] RBC (Bld) [#/Vol] 3.26 10*6/uL Low 4.20-6.00 [facility] Comment on above: Order Comment: Speci men Type: BLOOD SPECIMENOrdering Facility: [facility] Address: [address] [place] [address] Performed By: #### 5 5454-3, 98558-1 ####[facility] LABCLIA [id number] [place] [address] [place] WBC (Bld) [#/Vol] 15.74 10*3/uL High 3.70-11.00 [facility] Comment on above: Order Comment: Speci men Type: BLOOD SPECIMENOrdering Facility: [facility] Address: [address] [place] [address] Performed By: #### 5 5454-3, 99555-6 ####[facility] LABIA [id number] [place] [id number] [place] CEA SerPl-mCncon 11-11-2024 Carcinoembryonic Ag [Mass/Vol] 13.0 ng/mL High <=2.9 [facility] Comment on above: Order Comment: Speci men Type: BLOOD SPECIMENOrdering Facility: [facility] Address: [address] [place] [address] Result Comment: Carc inoembryonic antigen test is used as an aid in monitoring response to treatment or recurrence in patients with established colorectal, breast, lung, prostatic, pancreatic, and ovarian carcinomas. Clinical correlation is required.The Carcinoembryonic antigen test was performed using the Fiordaliza Sheri [employer] DXI paramagnetic particle chemiluminescent immunoassay method. Results obtained with different assay methods or kits cannot be used interchangeably. Performed By: #### 2 039-6, 24662-3, 2532-0 ####[facility] [id number] [address] [place] COAG CORE PANEL BLDon 2024 aPTT Coag (PPP) [Time] 41.3 s High 23.0-32.4 [facility] Comment on above: Order Comment: Speci men Type: BLOOD SPECIMENOrdering Facility: [facility] Address: [address] [place] [address] Performed By: #### C ORPNL ####[facility] [id number] [place] [address] [place] [facility] Fibrinogen Coag (PPP) [Mass/Vol] 88 mg/dL Low 200-400 [facility] Comment on above: Order Comment: Speci men Type: BLOOD SPECIMENOrdering Facility: [facility] Address: [address] [place] [address] Result Comment: [facility] checked for clot.Result rechecked. Performed By: #### C ORPNL ####[facility] [id number] [address] STATES OF [facility] INR Coag (PPP) [Relative time] 2.1 {INR} High 0.9-1.3 [facility] Comment on above: Order Comment: Speci men Type: BLOOD SPECIMENOrdering Facility: [facility] Address: [address] [place] [address] Result Comment: Sarah min K Antagonist (VKA) Therapeutic Range: INR 2 to 3 (Target INR of 2.5)Note: For patients treated with VKA drugs, such as warfarin, the [employer] 2012 Guideline recommends [...] al. Chest 2012, 141:7S-47SNishimura RA, et al. [facility] 2017, 70: 252-289 Performed By: #### C ORPNL ####[facility] [id number] [place] [address] [place] PT Coag (PPP) [Time] 21.8 s High 9.7-13.0 [facility] Comment on above: Order Comment: Speci men Type: BLOOD SPECIMENOrdering Facility: [facility] Address: [address] [place] [address] Performed By: #### C ORPNL ####[facility] [id number] [place] [address] [place] CONSULTon 11-11-2024 CONSULT Normal [facility] CONSULT Normal [facility] CRP SerPl-mCncon 11-11-2024 CRP [Mass/Vol] 0.5 mg/dL Normal <0.9 [facility] Comment on above: Order Comment: Speci men Type: BLOOD SPECIMENOrdering Facility: [facility] Address: [address] [place] [address] Performed By: #### D 1987-12 ####[facility] [id number] [place] [address] [place] CYTOLOGY NON-GYNon AP DISCLAIMER Normal [facility] Comment on above: Order Comment: Speci men Type: FLUID SPECIMENOrdering Facility: [facility] Address: [address] [place], [place] [address] Result Comment: Shellie pugh Developed Test (LDT) Disclaimer:Performance characteristics of immunohistochemical, immunofluorescent, and chromogenic in-situ hybridization tests have been determined by the performing laboratory within [facility]'s Thai Jackie [facility] Pathology and Laboratory Medicine Department ([facility], [facility], [facility], [facility], [facility], [facility], or [facility]) in a manner consistent with CLIA requirements. One or more of these tests may not have been cleared or approved by the FDA. [facility] is regulated under CLIA as qualified to perform high-complexity testing. These tests are used for clinical purposes. These should not be regarded as investigational or for research. Positive and negative controls stain appropriately. Performed By: #### C YTONON ####[facility] LABCLIA [id number] [place] [address] [place] CASE REPORT [facility] Comment on above: Order Comment: Speci men Type: FLUID SPECIMENOrdering Facility: [facility] Address: [address] [place] [address] Result Comment: [facility] Cytology Report Case: [id number] Provider: Yaritza Juarez, Collected: 11/11/2024 05:14 PM [facility] RECEPTIONIST.CNPOrdering Location: [place] [address] Received: 11/11/2024 08:30 PMPathologist: Sameer Fournier MDSpecimen: Abdomen Performed By: #### C YTONON ####[facility] LABCLIA [id number] [place] [address] [place] CLINICAL HISTORY paracentesis fluid Normal [facility] Comment on above: Order Comment: Speci men Type: FLUID SPECIMENOrdering Facility: [facility] Address: [address] [place] [address] Performed By: #### C YTONON ####[facility] LABCLIA [id number] [place] [address] [place] FINAL DIAGNOSIS Normal [facility] Comment on above: Order Comment: Speci men Type: FLUID SPECIMENOrdering Facility: [facility] Address: [address] [place] [address] Result Comment: A - Abdomen, Fluid Negative for malignant cells.The following cell blocks were associated with this case:A1\X09\Cell Block, Alcohol Fixed\X09\ at 1034 EDT Performed By: #### C YTONON ####[facility] LABCLIA [id number] [place] [address] [place] FINAL PERFORMING LAB Normal [facility] Comment on above: Order Comment: Speci men Type: FLUID SPECIMENOrdering Facility: [facility] Address: [address] [place] [address] Result Comment: Tech nical component, automatic vulcanizing operator screening performed at: [facility], [address] [place] [address] CLIA: [id number] interpretation performed at: [facility], [address] [place] [address] CLIA# [id number] Director: Titi Voss MD Performed By: #### C YTONON ####[facility] LABCLIA [id number] [address] [place] GROSS DESCRIPTION A. Abdomen Normal [facility] Comment on above: Order Comment: Speci men Type: FLUID SPECIMENOrdering Facility: [facility] Address: [address] [place] [address] Result Comment: 1450 cc opaque lexis fluid . ThinPrep and Cell Block prepared. Performed By: #### C YTONON ####[facility] LABCLIA [id number] [place] [address] [place] Cancer Ag19-9 SerPl-aCncon 0 11-11-2024 Cancer Ag 19-9 Qn <2.0 Normal <36.0 [facility] Comment on above: Order Comment: Speci men Type: BLOOD SPECIMENOrdering Facility: [facility] Address: [address] [place] [address] Result Comment: [facility] er antigen 19-9 test is used as an aid in monitoring response to treatment or recurrence in patients with established pancreatic, hepatobiliary, or gastrointestinal malignancies. Clinical correlation is required.The CA 19-9 Antigen test was performed using the [employer] Unicel DXI paramagnetic particle chemiluminescent immunoassay method. Results obtained with different assay methods or kits cannot be used interchangeably. Performed By: #### 2 039-6, 53100-1, 2532-0 ####[facility] LABCLIA [id number] [place] [address] [place] Cardiolipin IgA Ser IA-aCnco n 11-11-2024 Cardiolipin IgA IA Qn (S) 9.7 [APL'U] Normal <12.0 [facility] Comment on above: Order Comment: Ezekiel ramirez Type: BLOOD SPECIMENOrdering Facility: [facility] Address: [address] [place] [address] Result Comment: <12 APL [id number] APL Indeterminate>20 APL PositiveThe following results were obtained with the e[employer] QUANTA Lite TEZ IgA III ANDERS. Cardiolipin IgA values obtained with the different manufacturers' assay methods may not be used interchangeably. The magnitude of the reported IgA levels cannot be correlated to an endpoint titer. Performed By: #### 5 076, MELVIN ARMENTA ####[facility] LABIA [id number] [place] [address] [place] DIRECT BILIRUBIN BLOODon Bilirubin.conjugated [Mass/Vol] 1.1 mg/dL High <0.3 [facility] Comment on above: Order Comment: Ezekiel ramirez Type: BLOOD SPECIMENOrdering Facility: [facility] Address: [address] [place] [address] Performed By: #### D ASHLEY, 1986-12 ####[facility] LABCLIA [id number] [place] [address] [place] ECG COMPLETEon 11-11-2024 ECG COMPLETE Normal [facility] [id number] 11-11-2024 ECG01 Normal [facility] Ferritin SerPl-mCncon 2024 Ferritin [Mass/Vol] 82.4 ng/mL Normal 30.3-565.7 [facility] Comment on above: Order Comment: Speci men Type: BLOOD SPECIMENOrdering Facility: [facility] Address: [address] [place] [address] Performed By: #### 2 276-4, 53887-1, 12805-1, 35611-6, 2777-1, 75502-4 ####[facility] LABCLIA [id number] [place] [address] [place] Fibrinogen PPP-mCncon 2024 Fibrinogen Coag (PPP) [Mass/Vol] 90 mg/dL Low 200-400 [facility] Comment on above: Order Comment: Speci men Type: BLOOD SPECIMENOrdering Facility: [facility] Address: [address] [place] [address] Result Comment: Samp le checked for clot.Result rechecked. Performed By: #### 3 255-7, 58783-4 ####[facility] LABCLIA [id number] [place] [address] [place] HISTORY PHYSICALon HISTORY PHYSICAL Normal [facility] HYPERCOAG PANELon 11-11-2024 Activated protein C resistance Coag (PPP) [Time ratio] 2.10 Ratio Normal >1.96 [facility] Comment on above: Order Comment: Speci men Type: BLOOD SPECIMENOrdering Facility: [facility] Address: [address] [place] [address] Performed By: #### L [id number], HCOAG, 6303-2, 28334-6, 40051-6 ####[facility] LABCLIA [id number] [address], [facility] [place] Antithrombin actual/normal Chromogenic method (PPP) [Rel catalytic activity/Vol] 30 % Low 84-138 [facility] Comment on above: Order Comment: Speci men Type: BLOOD SPECIMENOrdering Facility: [facility] Address: [address] [place] [address] Performed By: #### L [id number], HCOAG, 6303-2, 25410-2, 89201-2 ####[facility] LABIA [id number] [place] [address] [place] aPTT Coag (Bld) [Time] 47.9 s High 24.0-35.1 [facility] Comment on above: Order Comment: Speci men Type: BLOOD SPECIMENOrdering Facility: [facility] Address: [address] [place] [address] Performed By: #### L [id number], HCOAG, 6303-2, 79251-6, 81215-8 ####[facility] LABIA [id number] [place] [address] [place] aPTT W excess hexagonal phase phospholipid Coag (PPP) [Time] 36.5 seconds Normal 34.0-51.8 [facility] Comment on above: Order Comment: Speci men Type: BLOOD SPECIMENOrdering Facility: [facility] Address: [address] [place] [address] Performed By: #### L [id number], HCOAG, 6303-2, 56688-6, 06253-4 ####[facility] [id number] [place] [address] [place] aPTT-LA w 1:1 PNP Coag (PPP) [Time] 32.5 seconds Normal <33.2 [facility] Comment on above: Order Comment: Speci men Type: BLOOD SPECIMENOrdering Facility: [facility] Address: [address] [place] [address] Result Comment: This test was developed, and its performance characteristics determined by the [facility] Department of Pathology and Laboratory Medicine. It has not been cleared or approved by the FDA. The [facility] Department of Pathology and Laboratory Medicine is regulated under CLIA as qualified to perform high-complexity testing. This test is used for clinical purposes. It should not be regarded as investigational or for research. Performed By: #### L [id number], HCOAG, 6303-2, 14668-0, 46130-2 ####[facility] LABCLIA [id number] [address] [address] [place] Coagulation factor VIII activity actual/normal Coag (PPP) [Relative time] 332 % High 50-173 [facility] Comment on above: Order Comment: Speci men Type: BLOOD SPECIMENOrdering Facility: [facility] Address: [address] [place] [address] Performed By: #### L [id number], HCOAG, 6303-2, 38425-2, 57604-2 ####[facility] [id number] [place] [address] [place] Coagulation factor X activated act Coag Qn (PPP) <0.10 Normal <0.10 [facility] Comment on above: Order Comment: Ezekiel ramirez Type: BLOOD SPECIMENOrdering Facility: [facility] Address: [address] [place] [address] Result Comment: This test was developed, and its performance characteristics determined by the [facility] Department of Pathology and Laboratory Medicine. It has not been cleared or approved by the FDA. The [facility] Department of Pathology and Laboratory Medicine is regulated under CLIA as qualified to perform high-complexity testing. This test is used for clinical purposes. It should not be regarded as investigational or for research. Performed By: #### L [id number], HCOAG, 6303-2, 07855-4, 80858-9 ####[facility] LABIA [id number] [place] [address] [place] Delta dRVVT Coag (PPP) [Time diff] 2.2 delta seconds Normal <7.1 [facility] Comment on above: Order Comment: Speci men Type: BLOOD SPECIMENOrdering Facility: [facility] Address: [address] [place] [address] Performed By: #### L [id number], HCOAG, 6303-2, 01932-2, 65060-5 ####[facility] LABCLIA [id number] [place] [address] [place] dRVVT W excess hexagonal phase phospholipid actual/normal Coag (PPP) [Relative time] 34.3 seconds Normal 34.2-47.9 [facility] Comment on above: Order Comment: Speci men Type: BLOOD SPECIMENOrdering Facility: [facility] Address: [address] [place] [address] Performed By: #### L [id number], HCOAG, 6303-2, 94858-1, 13902-0 ####[facility] LABIA [id number] [place] [address] [place] Protein C actual/normal Coag (PPP) [Relative time] 24 % Low 76-147 [facility] Comment on above: Order Comment: Speci men Type: BLOOD SPECIMENOrdering Facility: [facility] Address: [address] [place] [address] Performed By: #### L [id number], HCOAG, 6303-2, 23862-5, 27763-1 ####[facility] LABIA [id number] [place] [address] [place] Protein S actual/normal Coag (PPP) [Relative time] 28 % Low 59-152 [facility] Comment on above: Order Comment: Speci men Type: BLOOD SPECIMENOrdering Facility: [facility] Address: [address] [place] [address] Performed By: #### L [id number], HCOAG, 6303-2, 65812-4, 43640-3 ####[facility] LABCLIA [id number] [place] [address] [place] Protein S Free Ag actual/normal IA (PPP) [Relative mass conc] 45 % Low 55-148 [facility] Comment on above: Order Comment: Ezekiel ramirez Type: BLOOD SPECIMENOrdering Facility: [facility] Address: [address] [place] [address] Performed By: #### L [id number], HCOAG, 6303-2, 58362-8, 82590-6 ####[facility] LABCLIA [id number] [place] [address] [place] Thrombin time Coag (PPP) [Time] 20.0 seconds High <18.6 [facility] Comment on above: Order Comment: Ezekiel ramirez Type: BLOOD SPECIMENOrdering Facility: [facility] Address: [address] [place] [address] Performed By: #### L [id number], HCOAG, 6303-2, 94498-6, 48197-5 ####[facility] LABCLIA [id number] [address] [place] HYPERCOAG PANEL INTERPon INTERPRETATION (HYPERCOAG) Normal [facility] Comment on above: Order Comment: Ezekiel ramirez Type: BLOOD SPECIMENOrdering Facility: [facility] Address: [address] [place] [address] Result Comment: Abno miguelal - see comment below.SIGNIFICANT FINDINGS:1. Decreased antithrombin, [...] negative for the c.*97G>A variant (legacy name 43575U>A) in the 3' untranslated region of the [...] phase phospholipid neutralization. Performed By: #### L [id number], OA, 6303-2, 42633-1, 28474-8 ####[facility] LABIA [id number] [address] [address] [place] Pathologist name Reviewed by Julia Howell M.D., Ph.D Normal [facility] Comment on above: Order Comment: Speci men Type: BLOOD SPECIMENOrdering Facility: [facility] Address: [address] [place] [address] Performed By: #### L [id number], HCOAG, 6303-2, 84554-1, 61097-0 ####[facility] [id number] [place] [address] [place] Haptoglob SerPl-mCncon 11-11 Haptoglobin [Mass/Vol] 15 mg/dL Low 31-238 [facility] Comment on above: Order Comment: Speci men Type: BLOOD SPECIMENOrdering Facility: [facility] Address: [address] [place] [address] Performed By: #### 2 4362-6, 4542-7 ####[facility] [id number] [place] [address] [place] HbA1c (Bld)on 11-11-2024 Average glucose Estimated from glycated hemoglobin (Bld) [Mass/Vol] 154 mg/dL Normal [facility] Comment on above: Order Comment: Speci men Type: BLOOD SPECIMENOrdering Facility: [facility] Address: [address] [place] [address] Result Comment: eAG: (Estimated average glucose) is a calculated value from HgbA1c and is data entry representative of the average blood glucose level in the last 2-3 month period. Performed By: #### 5 5454-3, 68584-3 ####[facility] [id number] [address] [address] [place] HbA1c (Bld) [Mass fraction] 7.0 % High 4.3-5.6 [facility] Comment on above: Order Comment: Speci men Type: BLOOD SPECIMENOrdering Facility: [facility] Address: [address] [place] [address] Result Comment: [place] Diabetes Association guidelines indicate that patients with HgbA1c in the range 5.7-6.4% are at increased risk for development of diabetes, and intervention by lifestyle modification may be beneficial. HgbA1c greater or equal to 6.5% is considered diagnostic of diabetes. Performed By: #### 5 5454-3, 62622-2 ####[facility] LABCLIA [id number] [address] [address] [place] Hepatic function 2000 panelo n 11-11-2024 Albumin [Mass/Vol] 2.1 g/dL Low 3.9-4.9 [facility] Comment on above: Order Comment: Speci men Type: BLOOD SPECIMENOrdering Facility: [facility] Address: [address] [place] [address] Performed By: #### 2 276-4, 88638-7, 05778-6, 26115-5, 2777-1, 96671-8 ####[facility] LABIA [id number] [place] [address] [place] ALP [Catalytic activity/Vol] 310 U/L High 38-113 [facility] Comment on above: Order Comment: Speci men Type: BLOOD SPECIMENOrdering Facility: [facility] Address: [address] [place] [address] Performed By: #### 2 276-4, 98206-4, 07260-1, 30128-9, 7-1, 11091-0 ####[facility] LABIA [id number] [address] [address] [place] ALT [Catalytic activity/Vol] 31 U/L Normal 10-54 [facility] Comment on above: Order Comment: Speci men Type: BLOOD SPECIMENOrdering Facility: [facility] Address: [address] [place] [address] Performed By: #### 2 276-4, 91596-1, 38741-6, 17702-8, 2777-1, 50219-8 ####[facility] LABCLIA [id number] [address] [place] [address] [place] AST [Catalytic activity/Vol] 44 U/L High 14-40 [facility] Comment on above: Order Comment: Speci men Type: BLOOD SPECIMENOrdering Facility: [facility] Address: [address] [place] [address] Performed By: #### 2 276-4, 06368-4, 33362-9, 01368-9, 7-1, 28038-4 ####[facility] LABCLIA [id number] [address] [address] [place] Bilirubin [Mass/Vol] 1.6 mg/dL High 0.2-1.3 [facility] Comment on above: Order Comment: Speci men Type: BLOOD SPECIMENOrdering Facility: [facility] Address: [address] [place] [address] Performed By: #### 2 276-4, 89938-2, 62785-7, 13093-2, 7-1, 15066-5 ####[facility] LABIA [id number] [address] [address] [place] Bilirubin.conjugated [Mass/Vol] 1.0 mg/dL High <0.3 [facility] Comment on above: Order Comment: Speci men Type: BLOOD SPECIMENOrdering Facility: [facility] Address: [address] [place] [address] Performed By: #### 2 276-4, 09679-2, 99923-3, 36473-5, 7-1, 62124-1 ####[facility] LABCLIA [id number] [address] [address] [place] Protein [Mass/Vol] 5.3 g/dL Low 6.3-8.0 [facility] Comment on above: Order Comment: Speci men Type: BLOOD SPECIMENOrdering Facility: [facility] Address: [address] [place] [address] Performed By: #### 2 276-4, 06008-3, 52001-9, 30029-8, 2776-1, 19978-6 ####[facility] LABCLIA [id number] [address], [facility] [place] IMMATURE PLATELET FRACTIONon 11-11-2024 Platelets reticulated/100 platelets Auto (Bld) 7.7 % High 0.9-7.2 [facility] Comment on above: Order Comment: Speci men Type: BLOOD SPECIMENOrdering Facility: [facility] Address: [address] [place] [address] Performed By: #### I PFR, 81948-7, 53205-7 ####[facility] LABCLIA [id number] [place] [address] [place] Iron and Iron binding capaci ty panelon 11-11-2024 Iron [Mass/Vol] 34 ug/dL Low 41-186 [facility] Comment on above: Order Comment: Speci men Type: BLOOD SPECIMENOrdering Facility: [facility] Address: [address] [place] [address] Performed By: #### 2 276-4, 00909-7, 01671-3, 09782-5, 2776-1, 18856-7 ####[facility] LABCLIA [id number] [place] [address] [place] Iron binding capacity [Mass/Vol] 180 ug/dL Low 232-386 [facility] Comment on above: Order Comment: Speci men Type: BLOOD SPECIMENOrdering Facility: [facility] Address: [address] [place] [address] Performed By: #### 2 276-4, 35330-6, 72372-1, 46781-5, 7-1, 23220-5 ####[facility] LABCLIA [id number] [address] [place] Iron/TIBC [Molar ratio] 18.9 % Normal 15.0-57.0 C [facility] Comment on above: Order Comment: Megganhelder ramirez Type: BLOOD SPECIMENOrdering Facility: [facility] Address: [address] [place] [address] Performed By: #### 2 276-4, 59926-2, 34223-1, 08186-1, 2777-1, 96824-4 ####[facility] LABIA [id number] [place] [address] [place] LDH SerPl-[facility] 11-11-2024 LDH [Catalytic activity/Vol] 321 U/L High 135-225 [facility] Comment on above: Order Comment: Meggani james Type: BLOOD SPECIMENOrdering Facility: [facility] Address: [address] [place] [address] Performed By: #### 2 039-6, 49450-1, 2532-0 ####[facility] LABIA [id number] [place] [address] [place] Lipase Fld-[facility] 11-11-2024 Lipase (Body fld) [Catalytic activity/Vol] 29 U/L Normal See Comment [facility] Comment on above: Order Comment: Spechelder ramirez Type: FLUID SPECIMENOrdering Facility: [facility] Address: [address] [place] [address] Result Comment: Pleu ral fluids: Lipase measurement [...] document C49A. PAULETTE Diaz: Clinical Laboratory Standards [place]: 2007.2. Boot C. A review of pancreatic cyst fluid analysis in the differential diagnosis of pancreatic cyst lesions. [employer] 2013:0:1-16. Performed By: #### 1 747-5, 1795-4, 92301-9, 2881-1 ####[facility] LABIA [id number] [place] [address] [place] Lupus anticoagulant neutrali zation platelet Coag Ql (PPP)on 11-11-2024 aPTT Coag (Bld) [Time] 56.8 s High 30.2-43.0 [facility] Comment on above: Order Comment: Speci men Type: BLOOD SPECIMENOrdering Facility: [facility] Address: [address] [place] [address] Result Comment: This test was developed, and its performance characteristics determined by the [facility] Department of Pathology and Laboratory Medicine. It has not been cleared or approved by the FDA. The [facility] Department of Pathology and Laboratory Medicine is regulated under CLIA as qualified to perform high-complexity testing. This test is used for clinical purposes. It should not be regarded as investigational or for research. Performed By: #### L [id number], HCOAG, 6303-2, 88455-7, 76165-8 ####[facility] LABIA [id number] [place] [address] [place] aPTT Coag (Bld) [Time] 36.5 s Normal 31.5-38.3 [facility] Comment on above: Order Comment: Speci men Type: BLOOD SPECIMENOrdering Facility: [facility] Address: [address] [place] [address] Result Comment: This test was developed, and its performance characteristics determined by the [facility] Department of Pathology and Laboratory Medicine. It has not been cleared or approved by the FDA. The [facility] Department of Pathology and Laboratory Medicine is regulated under CLIA as qualified to perform high-complexity testing. This test is used for clinical purposes. It should not be regarded as investigational or for research. Performed By: #### L [id number], HCOAG, 6303-2, 17265-6, 80755-2 ####[facility] LABCLIA [id number] [address] [place] [address] [place] PLATELET NEUT 0.0 Seconds Normal <1.9 [facility] Comment on above: Order Comment: Speci men Type: BLOOD SPECIMENOrdering Facility: [facility] Address: [address] [place] [address] Result Comment: This test was developed, and its performance characteristics determined by the [facility] Department of Pathology and Laboratory Medicine. It has not been cleared or approved by the FDA. The [facility] Department of Pathology and Laboratory Medicine is regulated under CLIA as qualified to perform high-complexity testing. This test is used for clinical purposes. It should not be regarded as investigational or for research. Performed By: #### L [id number], HCOAG, 6303-2, 69780-3, 57103-0 ####[facility] LABCLIA [id number] [address] [place] [address] [place] MANUAL DIFFERENTIAL, BODY FL UIDon 11-11-2024 DIF TTL, BODY FLUID 100 cells counted Normal [facility] Comment on above: Order Comment: Speci men Type: FLUID SPECIMENOrdering Facility: [facility] Address: [address] [place] [address] Performed By: #### C CBF, [id number] ####[facility] LABCLIA [id number] [address] [place] [address] [place] LYMPH%, BF 37 % High 18-36 [facility] Comment on above: Order Comment: Speci men Type: FLUID SPECIMENOrdering Facility: [facility] Address: [address] [place] [address] Performed By: #### C CBF, [id number] ####[facility] LABCLIA [id number] [address] [place] [address] [place] MACRO%, BF 21 % Low 64-80 [facility] Comment on above: Order Comment: Speci men Type: FLUID SPECIMENOrdering Facility: [facility] Address: [address] [place] [id number] Performed By: #### C CBF, [id number] ####[facility] [facility] [id number] [address] [place] [address] [place] %, BF 12 % High 0-2 [facility] Comment on above: Order Comment: Speci men Type: FLUID SPECIMENOrdering Facility: [facility] Address: [address] [place] [address] Performed By: #### C CBF, [id number] ####[facility] [id number] [address] [place] [address] [place] NEUT%, BF 26 % High 0-1 [facility] Comment on above: Order Comment: Speci men Type: FLUID SPECIMENOrdering Facility: [facility] Address: [address] [place] [address] Performed By: #### C CBF, [id number] ####[facility] [id number] [address] [place] [address] [place] REAC LYMPH %, BF 4 % Normal [facility] Comment on above: Order Comment: Speci men Type: FLUID SPECIMENOrdering Facility: [facility] Address: [address] [place] [address] Performed By: #### C CBF, [id number] ####[facility] [id number] [address] [place] [address] [place] MEDICAL EMERon 11-11-2024 MEDICAL KRISTINA Normal [facility] MEDICAL KRISTINA Normal [facility] Magnesium SerPl-mCncon 11-11 Magnesium [Mass/Vol] 2.3 mg/dL Normal 1.7-2.3 [facility] Comment on above: Order Comment: Speci men Type: BLOOD SPECIMENOrdering Facility: [facility] Address: [address] [place] [address] Performed By: #### 2 276-4, 81566-7, 43831-7, 92995-7, 2777-1, 42789-6 ####[facility] [id number] [facility] [place] [address] [place] [facility] [place] NURSING PROGon 11-11-2024 NURSING PROG Normal [facility] PLT DEP.AB, UNF. HEPARINon 0 11-11-2024 % REL HIGH DOSE HEP PORCINE 0 % Normal [facility] Comment on above: Order Comment: Speci men Type: BLOOD SPECIMENOrdering Facility: [facility] Address: [address] [place] [address] Performed By: #### S ERORE ####[facility] [id number] [place] [address] % REL LOW DOSE HEP PORCINE 0 % Normal [facility] Comment on above: Order Comment: Speci men Type: BLOOD SPECIMENOrdering Facility: [facility] Address: [address] [place] [address] Performed By: #### S ERORE ####[facility] [id number] [place] [address] SEROTONIN REL INTERP See Note Normal [facility] Comment on above: Order Comment: Speci men Type: BLOOD SPECIMENOrdering Facility: [facility] Address: [address] [place] [address] Result Comment: This patient's specimen demonstrates a [...] Additionalinformation regarding diagnosis of HIT is available Petta[employer].INTERPRETIVE INFORMATION: ABRAHAM, Unfractionated HeparinThis test was developed and its performance characteristicsdetermined by [facility]. It has not been cleared orapproved by the [place] Food and Drug Administration. This test wasperformed in a CLIA certified laboratory and is intended forclinical purposes.Performed By: [facility] [place], [place] [address]Fmdtmqrvsd Director: Lizandro Ordonez MD, PhDCLIA Number: [id number] Performed By: #### S ERORE ####[facility]ORATORIESCLIA [id number] [place] [address] ABRAHAM, UNFRACTIONATED HEPARIN Negative Normal Negative [facility] Comment on above: Order Comment: Speci men Type: BLOOD SPECIMENOrdering Facility: [facility] Address: [address] [place] [address] Performed By: #### S ERORE ####[facility] [id number] [place] [address] PROTHROMBIN GENE PCRon 11-11 PROTHROMBIN GENE MUTATION Normal [facility] Comment on above: Order Comment: Speci men Type: BLOOD SPECIMENOrdering Facility: [facility] Address: [address] [place] [address] Result Comment: Prot hrombin Gene MutationLaboratory Accession Number: [id number]:NORMALInterpretation:The DNA sample is negative for the c.*97G>A variant (legacy ityv87043R>A) in the 3' untranslated region of the Factor II (F2) gene.This result is not associated with an increased risk of thromboembolicdisease. Thromboembolic disease is a multifactorial disorder and othercauses are not excluded by this result.Methodology:Isolated Genomic DNA from the patient's blood specimen is evaluatedfor the c*97G>A (g.[id number]) variant of the F2 gene [RefSeqNM_000506.53;GRCh38/hg38] by multiplex polymerase chain reaction (PCR)followed by melting curve analysis.Limitations:This assay is designed to detect the c.*97G>A (27675B>A) variant inthe F2 gene. Uncommon variants or single nucleotide polymorphisms mayaffect binding of probes and may rarely result in false negative,false positive or indeterminate results. This assay does not detectother disease-associated rare variants in F2 or other causes ofthromboembolic disease.Disclaimer:This test was developed and its performance characteristics determinedby [facility]'s Pathology and Laboratory Medicine Department. Ithas not been cleared or approved by the FDA. [facility] is regulated under CLIAas certified to perform high-complexity testing. This test is used forclinical purposes. It should not be regarded as investigational or forresearch.Test performed at [facility], [address] [place] [address], [place] [address]. CLIA Number: [id number]) Inheritied Thrombophilias in . ACOG Practice Bulletin. No.197. [place] [employer]. ObseteGynecol 2018;132:e18-34.2) Elfego SR, Kinsey FR, Jeremy PH, and Bernice RM. A commongenetic variation in the 3'-untranslated region of the prothrombingene is associated with elevated plasma prothrombin levels and anincrease in venous thrombosis. Blood 88:3698-703, 1995.3) Rica I, Justus V, Nayan C, Emily K. Lydkcfmvvof83480P>T: 16 new cases, association with the 64598E>G polymorphism,and literature review. J Thromb Haemost. 2009;9:1585-7.Interpretation performed at remote location (R0A1) by Fifi España MD Performed By: #### P TGEN ####[facility] ILLUMINA [facility] [id number] [place] PT panel Coag (PPP)on 2024 INR Coag (PPP) [Relative time] 2.3 {INR} High 0.9-1.3 [facility] Comment on above: Order Comment: Speci men Type: BLOOD SPECIMENOrdering Facility: [facility] Address: [address] [place] [address] Result Comment: Sarah min K Antagonist (VKA) Therapeutic Range: INR 2 to 3 (Target INR of 2.5)Note: For patients treated with VKA drugs, such as warfarin, the [place] [employer] 2012 Guideline recommends [...] of 3).Tammi GONZALES, et al. Chest 2012, 141:7S-47SNishbethel RA, et al. [facility] 2017, 70: 252-289 Performed By: #### P TTA, 10885-0 ####[facility]CL[facility] [id number] [place] [address] [place] PT Coag (PPP) [Time] 23.1 s High 9.7-13.0 [facility] Comment on above: Order Comment: Ezekiel ramirez Type: BLOOD SPECIMENOrdering Facility: [facility] Address: [address] [place] [address] Performed By: #### P TTA, 72385-6 ####[facility] LABIA [id number] [place] [address] [place] INR Coag (PPP) [Relative time] 2.1 {INR} High 0.9-1.3 [facility] Comment on above: Order Comment: Ezekiel ramirez Type: BLOOD SPECIMENOrdering Facility: [facility] Address: [address] [place] [address] Result Comment: Sarah min K Antagonist (VKA) Therapeutic Range: INR 2 to 3 (Target INR of 2.5)Note: For patients treated with VKA drugs, such as warfarin, the [place] [employer] 2012 Guideline recommends [...] al. Chest 2012, 141:7S-47SNishimura RA, et al. [facility] 2017, 70: 252-289 Performed By: #### 3 4528-0 ####[facility] [id number] [place] [address] [place] PT Coag (PPP) [Time] 22.0 s High 9.7-13.0 [facility] Comment on above: Order Comment: Speci men Type: BLOOD SPECIMENOrdering Facility: [facility] Address: [address] [place] [address] Performed By: #### 3 4528-0 ####[facility]IA [id number] [place] [address] [place] PTT, ANTICOAGULANT THERAPYon 11-11-2024 aPTT Coag (PPP) [Time] EXTREMELY ABNORMA L RESULT. No clot detected at 320 seconds. Refer to anticoagulation nomogram for further actions. Critically abnormal (none) [facility] Comment on above: Order Comment: Speci men Type: BLOOD SPECIMENOrdering Facility: [facility] Address: [address] [place] [address] Result Comment: Resu lt rechecked.Sample checked for clot. Performed By: #### P TTAC, 01500-2 ####[facility]IA [id number] [place] [address] [place] Phosphate SerPl-mCncon 11-11 Phosphate [Mass/Vol] 2.6 mg/dL Low 2.7-4.8 [facility] Comment on above: Order Comment: Speci men Type: BLOOD SPECIMENOrdering Facility: [facility] Address: [address] [place] [address] Performed By: #### 2 276-4, 73992-9, 93275-1, 20947-5, 2777-1, 55625-9 ####[facility] [id number] [place] [address] [place] Prot Fld-mCncon 11-11-2024 Protein (Body fld) [Mass/Vol] 0.2 g/dL Normal See Comment [facility] Comment on above: Order Comment: Speci men Type: FLUID SPECIMENOrdering Facility: [facility] Address: [address] [place] [address] Result Comment: Sero us fluids: Effusions are [...] document C49A. PAULETTE Diaz: Clinical Laboratory Standards [place]: 2007. Performed By: #### 1 747-5, 1795-4, 72193-4, 2881-1 ####[facility] LABIA [id number] [place] [address] [place] Renal function 2000 panelon 11-11-2024 Albumin [Mass/Vol] 2.4 g/dL Low 3.9-4.9 [facility] Comment on above: Order Comment: Speci men Type: BLOOD SPECIMENOrdering Facility: [facility] Address: [address] [place] [address] Performed By: #### 2 4362-6, 4542-7 ####[facility]ITAL[facility] [id number] [place] [address] [place] Anion gap [Moles/Vol] 10 mmol/L Normal 8-15 [facility] Comment on above: Order Comment: Speci men Type: BLOOD SPECIMENOrdering Facility: [facility] Address: [address] [place], [place] [address] Performed By: #### 2 4362-6, 4541-7 ####[facility] [id number] [address] [address] [place] Calcium [Mass/Vol] 9.3 mg/dL Normal 8.5-10.2 [facility] Comment on above: Order Comment: Speci men Type: BLOOD SPECIMENOrdering Facility: [facility] Address: [address] [place] [address] Performed By: #### 2 436-6, 7 ####[facility] [id number] [place] [address] [place] Chloride [Moles/Vol] 100 mmol/L Normal 98-107 [facility] Comment on above: Order Comment: Speci men Type: BLOOD SPECIMENOrdering Facility: [facility] Address: [address] [place] [address] Performed By: #### 2 436-6, 7 ####[facility] [id number] [place] [id number] [place] CO2 [Moles/Vol] 13 mmol/L Low 22-30 [facility] Comment on above: Order Comment: Speci men Type: BLOOD SPECIMENOrdering Facility: [facility] Address: [address] [place] [address] Performed By: #### 2 436-6, 7 ####[facility] [id number] [address] [address] [place] Creatinine [Mass/Vol] 1.26 mg/dL High 0.73-1.22 [facility] Comment on above: Order Comment: Speci men Type: BLOOD SPECIMENOrdering Facility: [facility] Address: [address] [place], [place] [address] Performed By: #### 2 4362-6, 4541-7 ####[facility] [id number] [place] [address] [place] Creatinine and Glomerular filtration rate.predicted panel (S/P/Bld) 66 mL/min/1.73m??? Normal >=60 [facility] Comment on above: Order Comment: Spechelder ramirez Type: BLOOD SPECIMENOrdering Facility: [facility] Address: [address] [place] [address] Result Comment: Patric mated Glomerular Filtration Rate [...] GFR. Performed By: #### 2 4362-6, 4542-7 ####[facility] [id number] [place] [address] [place] Glucose [Mass/Vol] 255 mg/dL High 74-99 [facility] Comment on above: Order Comment: Ezekiel ramirez Type: BLOOD SPECIMENOrdering Facility: [facility] Address: [address] [place] [address] Result Comment: The [place] Diabetes Association (ADA) provides guidance for cutoff [...] Standards of Medical Care in Diabetes 2016, [place] Diabetes Association. Diabetes Care. 2016.39(Suppl 1). Performed By: #### 2 4362-6, 4542-7 ####[facility] [id number] [place] [address] [place] Phosphate [Mass/Vol] 2.5 mg/dL Low 2.7-4.8 [facility] Comment on above: Order Comment: Speci men Type: BLOOD SPECIMENOrdering Facility: [facility] Address: [address] [place] [address] Performed By: #### 2 4362-6, 4541-7 ####[facility] [id number] [place] [address] [place] Potassium [Moles/Vol] 4.4 mmol/L Normal 3.7-5.1 [facility] Comment on above: Order Comment: Speci men Type: BLOOD SPECIMENOrdering Facility: [facility] Address: [address] [place] [address] Performed By: #### 2 4362-6, 4541-7 ####[facility] LABIA [id number] [place] [address] [place] Sodium [Moles/Vol] 123 mmol/L Low 136-144 [facility] Comment on above: Order Comment: Speci men Type: BLOOD SPECIMENOrdering Facility: [facility] Address: [address] [place] [address] Performed By: #### 2 4362-6, 7 ####[facility]IA [id number] [place] [address] [place] Urea nitrogen [Mass/Vol] 21 mg/dL Normal 9-24 [facility] Comment on above: Order Comment: Speci men Type: BLOOD SPECIMENOrdering Facility: [facility] Address: [address] [place] [address] Performed By: #### 2 4362-6, 4541-7 ####[facility]CL[facility] [id number] [place] [id number] [place] Retics #on 11-11-2024 Reticulocytes (Bld) [#/Vol] 0.10019 10*3/uL High 0.018-0.100 [facility] Comment on above: Order Comment: Speci men Type: BLOOD SPECIMENOrdering Facility: [facility] Address: [address] [place] [address] Performed By: #### I PFR, 50059-4, 03434-4 ####[facility]CLIA [id number] [place] [address] [place] Reticulocytes (Bld) [#/Vol]o n 11-11-2024 Reticulocytes/100 RBC (Bld) 4.1 % High 0.4-2.0 [facility] Comment on above: Order Comment: Speci men Type: BLOOD SPECIMENOrdering Facility: [facility] Address: [address] [place] [address] Performed By: #### I PFR, 70655-5, 78891-5 ####[facility]CL[facility] [id number] [place] [address] [place] SEPSIS LACTATEon 11-11-2024 Lactate [Moles/Vol] 3.4 mmol/L High <=2.0 [facility] Comment on above: Order Comment: Speci men Type: BLOOD SPECIMENOrdering Facility: [facility] Address: [address] [place] [address] Performed By: #### S LACT ####[facility]CL[facility] [id number] [place] [address] [place] Lactate [Moles/Vol] 3.6 mmol/L High <=2.0 [facility] Comment on above: Order Comment: Speci men Type: BLOOD SPECIMENOrdering Facility: [facility] Address: [address] [place] [address] Performed By: #### S LACT ####[facility]CL[facility] [id number] [place] [address] [place] Screen dRVVTon 11-11-2024 dRVVT Coag (PPP) [Time] 42.6 s Normal 32.0-45.7 C [facility] Comment on above: Order Comment: Speci men Type: BLOOD SPECIMENOrdering Facility: [facility] Address: [address] [place] [address] Performed By: #### L [id number], HCOAG, 6303-2, 16994-0, 76738-4 ####[facility]CL[facility] [id number] [place] [address] [place] US ABD LIVER VASCULARon 04-1 US ABD LIVER VASCULAR Normal [facility] US DOPPLER COMPLETEon 2024 US DOPPLER COMPLETE Normal [facility] XR ABDOMEN 1V SUPINEon 11-11 XR ABDOMEN 1V SUPINE Normal [facility] XR CHEST 1V FRONTAL PORTon 0 11-11-2024 XR CHEST 1V FRONTAL PORT Normal [facility] XR CHEST 1V FRONTAL PORT Normal [facility] aPTT PPPon 11-11-2024 aPTT Coag (PPP) [Time] 41.7 s High 23.0-32.4 Cl [facility] Comment on above: Order Comment: Speci men Type: BLOOD SPECIMENOrdering Facility: [facility] Address: [address] [place] [address] Performed By: #### 3 255-7, 06855-0 ####[facility] LABIA [id number] [place] [address] [place] dRVVT Coag (PPP) [Time]on dRVVT factor substitution immediately after 1:2 addition of normal plasma Coag (PPP) [Time] 35.4 seconds Normal 32.0-45.7 [facility] Comment on above: Order Comment: Speci men Type: BLOOD SPECIMENOrdering Facility: [facility] Address: [address] [place] [address] Performed By: #### L [id number], HCOAG, 6303-2, 90197-1, 88233-0 ####[facility]CLIA [id number] [address] [place] dRVVT/dRVVT.excess phospholipid Coag (PPP) [Ratio] 0.91 Normal <1.32 [facility] Comment on above: Order Comment: Speci men Type: BLOOD SPECIMENOrdering Facility: [facility] Address: [address] [place] [address] Performed By: #### L [id number], HCOAG, 6303-2, 10138-9, 25301-9 ####[facility]CLIA [id number] [place] [address] [place] ALP [Catalytic activity/Vol] Ordered By: Kathie Powers on 11-10-2024 Serum or plasma alkaline phosphatase measurement 310 U/L High 40-129 [facility] ALT [Catalytic activity/Vol] Ordered By: Kathie Powers on 11-10-2024 Serum or plasma alanine aminotransferase (ALT) measurement 36 U/L <47 [facility] Absolute lymphocyte countOrd ered By: Kathie Powers on 11-10-2024 Lymphocytes Auto (Unsp spec) [#/Vol] 1.30 10*3/uL 0.83-4.51 [facility] Absolute neutrophil countOrd ered By: Kathie Powers on 11-10-2024 Absolute neutrophil count 16.2 X10^3/uL High 2.0-7.7 [facility] Albumin [Mass/Vol]Ordered By : Kathie Powers on 11-10-2024 Serum or plasma albumin measurement (mass/volume) 2.3 g/dL Low 3.5-5.0 [facility] Albumin/Globulin [Mass ratio ]Ordered By: Kathie Powers on 11-10-2024 Serum or plasma albumin/globulin mass ratio 0.7 RATIO Low 0.9-2.4 [facility] Anion gap [Moles/Vol]Ordered By: Kathie Powers on 11-10-2024 Anion gap in Serum or Plasma 11 5-15 [facility] Anion gap in Serum or Plasma Ordered By: Kathie Powers on 11-10-2024 Anion gap [Moles/Vol] 11 mmol/L - [facility] Automated lymphocyte count a s percentage of total leukocytesOrdered By: Kathie Powers on 11-10-2024 Lymphocytes/100 WBC Auto (Unsp spec) 6.6 % Low 19-41 [facility] BUN/creatinine ratioOrdered By: Kathie Powers on 11-10-2024 Urea nitrogen/Creatinine [Mass ratio] 16.6 mg/mg 10-20 [facility] BUN/creatinine ratio 16.6 RATIO 10-20 [facility] Bacteria LM.HPF (Urine sed) [#/Area]Ordered By: Kathie Powers on 11-10-2024 Urine sediment bacteria count by microscopy (number/high power field) 2+ /hpf None Seen [facility] Basophil percentageOrdered B y: Kathie Powers on 11-10-2024 Basophils/100 WBC (Bld) 0.5 % 0-1 [facility] Basophil percentage 0.5 % 0-1 [facility] Bilirubin Test strip Ql (U)O rdered By: Kathie Powers on 11-10-2024 Bilirubin Ql (U) Negative Negative [facility] Urine total bilirubin detection by test strip Negative Negative [facility] Bilirubin, totalOrdered By: Kathie Powers on 11-10-2024 Bilirubin [Mass/Vol] 2.09 mg/dL High 0.00-1.30 [facility] Bilirubin, total 2.09 mg/dL High 0.00-1.30 [facility] Calcium [Mass/Vol]Ordered By : Kathie Powers on 11-10-2024 Serum or plasma calcium measurement (mass/volume) 9.2 mg/dL 7.6-11.0 [facility] Carbon dioxide, total [Moles /volume] in Central venous bloodOrdered By: Kathie Powers on 11-10-2024 CO2 [Moles/Vol] 13.3 mmol/L Low 21.0-32.0 [facility] Carbon dioxide, total [Moles/volume] in Central venous blood 13.3 mmol/L Low 21.0-32.0 [facility] Chloride assayOrdered By: Paulette Powers on 11-10-2024 Chloride [Moles/Vol] 99 mmol/L 98-108 [facility] Chloride assay 99 mmol/L 98-108 [facility] Clarity (U)Ordered By: Kathie Powers on 11-10-2024 Urine clarity Turbid Clear [facility] Color (U)Ordered By: Kathie lucas on 11-10-2024 Urine color determination Brown Yellow [facility] Creatinine [Mass/Vol]Ordered By: Kathie Powers on 11-10-2024 Serum creatinine measurement (mass/volume) 1.13 mg/dL 0.70-1.20 [facility] Eosinophil percentageOrdered By: Kathie Powers on 11-10-2024 Eosinophils/100 WBC (Bld) 1.9 % 0-5 [facility] Eosinophil percentage 1.9 % 0-5 [facility] Erythrocyte distribution wid th (RBC) [Ratio]Ordered By: Kathie Powers on 11-10-2024 Erythrocyte distribution width ratio 18.1 % High 11.6-14.6 [facility] Erythrocyte distribution width standard deviation 62.1 fl High 35.1-43.9 [facility] Erythrocyte distribution wid th ratioOrdered By: Kathie Powers on 11-10-2024 Erythrocyte distribution width (RBC) [Ratio] 18.1 % High 11.6-14.6 [facility] Erythrocyte distribution wid th standard deviationOrdered By: Kathie Powers on 11-10-2024 Erythrocyte distribution width (RBC) [Ratio] 62.1 fl High 35.1-43.9 [facility] Estimation of creatinine carolina aranceOrdered By: Kathie Powers on 11-10-2024 Estimation of creatinine clearance 88.23 ml/min 50-250 [facility] GFR/1.73 sq M.predicted niki g non-blacks MDRD (S/P/Bld) [Vol rate/Area]Ordered By: Kathie Powers on 11-10-2024 Glomerular filtration rate (GFR) estimation/1.73 sq m using serum, plasma, or whole b 75 >60 [facility] Glomerular filtration rate ( GFR) estimation/1.73 sq m using serum, plasma, or whole bOrdered By: Kathie Powers on 11-10-2024 GFR/1.73 sq M.predicted among non-blacks MDRD (S/P/Bld) [Vol rate/Area] 75 mL/min/{1.73_m2} >60 [facility] Glucose Ql (U)Ordered By: Paulette Powers on 11-10-2024 Urine glucose detection Normal mg/dl Normal [facility] Glucose [Mass/Vol]Ordered By : Kathie Powers on 11-10-2024 Serum glucose measurement (mass/volume) 298 mg/dL High 70-99 [facility] Glucose measurement at bedsi deOrdered By: Kathie Powers on 11-10-2024 Glucose [Mass/Vol] 265 mg/dL High 74-[address] [facility] Glucose measurement at bedside 265 mg/dL High 74-106 [facility] Hematocrit Auto (Bld) [Volum e fraction]Ordered By: Kathie Powers on 11-10-2024 Hematocrit (Bld) [Volume fraction] 32.9 % Low 40-54 [facility] Automated blood hematocrit (percentage) 32.9 % Low 40-54 [facility] Hemoglobin measurementOrdere d By: Kathie Powers on 11-10-2024 Hemoglobin (Bld) [Mass/Vol] 11.3 g/dL Low 13.0-16.5 [facility] Hemoglobin measurement 11.3 g/dL Low 13.0-16.5 [facility] Immature granulocytes/100 WB C Auto (Bld)Ordered By: Kathie Powers on 11-10-2024 Immature granulocytes/100 WBC (Bld) 1.100 % High 0.0-0.9 [facility] Automated immature granulocyte percentage 1.100 % High 0.0-0.9 [facility] International normalized rat io (INR) calculationOrdered By: Kathie Powers on 11-10-2024 International normalized ratio (INR) calculation 3.1 [facility] Ketones Test strip Ql (U)Ord ered By: Kathie Powers on 11-10-2024 Ketones Ql (U) 5 mg/dl High Negative [facility] Urine ketones detection by test strip 5 mg/dl High Negative [facility] Leukocyte esterase Test stri p Ql (U)Ordered By: Kathie Powers on 11-10-2024 Urine leukocyte esterase detection by dipstick 500 /ul High Negative [facility] Lymphocytes Auto (Unsp spec) [#/Vol]Ordered By: Kathie Powers on 11-10-2024 Absolute lymphocyte count 1.30 X10^3/uL 0.83-4.51 [facility] Lymphocytes/100 WBC Auto (Un sp spec)Ordered By: Kathie Powers on 04-09-2025 Automated lymphocyte count as percentage of total leukocytes 6.6 % Low 19-41 [facility] MCV (RBC) [Entitic vol]Order ed By: Kathie Powers on 11-10-2024 MCV (mean corpuscular volume) determination 92.7 fL 80-94 [facility] MCV (mean corpuscular volume ) determinationOrdered By: Kathie Powers on 11-10-2024 MCV (RBC) [Entitic vol] 92.7 fL 80-94 [place] Mean corpuscular hemoglobin (MCH) determinationOrdered By: Kathie Powers on 11-10-2024 MCH (RBC) [Entitic mass] 31.8 pg 27.0-32.0 [facility] Mean corpuscular hemoglobin (MCH) determination 31.8 pg 27.0-32.0 [facility] Mean corpuscular hemoglobin concentration (MCHC) determinationOrdered By: Kathie Powers on 11-10-2024 Mean corpuscular hemoglobin concentration (MCHC) determination 34.3 g/dL 32-36 [facility] Mean platelet volume determi nationOrdered By: Kathie Powers on 11-10-2024 Mean platelet volume determination 12.2 fl High 6.2-12.0 [facility] Microscopic analysis of urin e for red blood cells (RBC)Ordered By: Kathie Powers on 11-10-2024 Microscopic analysis of urine for red blood cells (RBC) > 100 SEEN /hpf 0-5 [facility] Monocyte percentageOrdered B y: Kathie Powers on 11-10-2024 Monocytes/100 WBC (Bld) 6.9 % 0-10 [facility] Monocyte percentage 6.9 % 0-10 [facility] Mucus LM Ql (Urine sed)Order ed By: Kathie Powers on 11-10-2024 Mucus Ql (Urine sed) 0 SEEN /hpf [facility] Neutrophil percentageOrdered By: Kathie Powers on 11-10-2024 Neutrophils/100 WBC (Bld) 83.0 % High 47-70 [facility] Neutrophil percentage 83.0 % High 47-70 [facility] Nitrite Test strip Ql (U)Ord ered By: Kathie Powers on 11-10-2024 Nitrite Ql (U) Positive High Negative [facility] Urine nitrite test by dipstick Positive High Negative [facility] No Panel InformationOrdered By: Kathie Powers on 11-10-2024 58 U/L High <38 [facility] Nucleated red blood cell per centageOrdered By: Kathie Powers on 11-10-2024 Nucleated red blood cell percentage 0 % 0-5 [facility] Platelet countOrdered By: Paulette Powers on 11-10-2024 Platelets (Bld) [#/Vol] 58 10*3/uL Low 150-450 [facility] Platelet count 58 K/mm3 Low 150-450 [facility] Potassium (Unsp spec) [Mass/ Vol]Ordered By: Kathie Powers on 11-10-2024 Potassium measurement (mass/volume) 3.6 mmol/L 3.3-5.1 [facility] Potassium measurement (mass/ volume)Ordered By: Kathie Powers on 11-10-2024 Potassium (Unsp spec) [Mass/Vol] 3.6 mmol/L 3.3-5.1 [facility] Protein Test strip Ql (U)Ord ered By: Kathie Powers on 11-10-2024 Protein Ql (U) 500 mg/dl High Negative [facility] Urine protein assay by test strip, semi-quantitative 500 mg/dl High Negative [facility] Prothrombin timeOrdered By: Kathie Powers on 11-10-2024 PT Coag (PPP) [Time] 32.3 s High 11.7-14.9 [facility] Prothrombin time 32.3 SECONDS High 11.7-14.[address] [facility] RBC Auto (Bld) [#/Vol]Ordere d By: Kathie Powers on 11-10-2024 RBC (Bld) [#/Vol] 3.55 10*6/uL Low 4.6-6.2 [facility] Automated blood erythrocyte count 3.55 M/mm3 Low 4.6-6.2 [facility] Serum creatinine measurement (mass/volume)Ordered By: Kathie Powers on 11-10-2024 Creatinine [Mass/Vol] 1.13 mg/dL 0.70-1.20 [facility] Serum globulin measurementOr dered By: Kathie Powers on 11-10-2024 Globulin (S) [Mass/Vol] 3.4 g/dL 2.2-4.2 [place] Serum globulin measurement 3.4 g/dL 2.2-4.2 [facility] Serum glucose measurement (m ass/volume)Ordered By: Kathie Powers on 11-10-2024 Glucose [Mass/Vol] 298 mg/dL High 70-[address] [facility] Serum or plasma alanine thomas otransferase (ALT) measurementOrdered By: Kathie Powers on 11-10-2024 ALT [Catalytic activity/Vol] 36 U/L <47 [facility] Serum or plasma albumin roosevelt urement (mass/volume)Ordered By: Kathie Powers on 11-10-2024 Albumin [Mass/Vol] 2.3 g/dL Low 3.5-5.[address] [facility] Serum or plasma albumin/glob ulin mass ratioOrdered By: Kathie Powers on 11-10-2024 Albumin/Globulin [Mass ratio] 0.7 {ratio} Low 0.9-2.4 [facility] Serum or plasma alkaline kendrick sphatase measurementOrdered By: Kathie Powers on 11-10-2024 ALP [Catalytic activity/Vol] 310 U/L High 40-129 [facility] Serum or plasma calcium roosevelt urement (mass/volume)Ordered By: Kathie Powers on 11-10-2024 Calcium [Mass/Vol] 9.2 mg/dL 7.6-11.[address] [facility] Serum or plasma urea nitroge n measurement (mass/volume)Ordered By: Kathie Powers on 11-10-2024 Urea nitrogen [Mass/Vol] 19 mg/dL 4-19 [facility] Sodium levelOrdered By: Javed Powers on 11-10-2024 Sodium [Moles/Vol] 123 mmol/L Low 133-[address] [facility] Sodium level 123 mmol/L Low 133-145 [facility] Specific gravity (U) [Rel de nsity]Ordered By: Kathie Powers on 11-10-2024 Urine specific gravity measurement 1.015 1.002-1.030 [facility] Squamous epithelial cells de tection in urine sediment by light microscopyOrdered By: Kathie Powers on 11-10-2024 Epithelial cells.squamous LM Ql (Urine sed) 0 SEEN /hpf 0-5 [facility] Squamous epithelial cells detection in urine sediment by light microscopy 0 SEEN /hpf [facility] Total proteinOrdered By: Tyree Powers on 11-10-2024 Protein [Mass/Vol] 5.7 g/dL Low 5.9-8.[address] [facility] Total protein 5.7 g/dL Low 5.9-8.4 [facility] Urea nitrogen [Mass/Vol]Orde red By: Kathie Powers on 11-10-2024 Serum or plasma urea nitrogen measurement (mass/volume) 19 mg/dL 4-19 [facility] Urine blood detectionOrdered By: Kathie Powers on 11-10-2024 Urine blood detection 250 /ul High Negative [facility] Urine clarityOrdered By: Tyree Powers on 11-10-2024 Clarity (U) Turbid Clear [facility] Urine color determinationOrd ered By: Kathie Powers on 11-10-2024 Color (U) Brown Yellow [facility] Urine glucose detectionOrder ed By: Kathie Powers on 11-10-2024 Glucose Ql (U) Normal mg/dl Normal [facility] Urine leukocyte esterase det ection by dipstickOrdered By: Kathie Powers on 11-10-2024 Leukocyte esterase Test strip Ql (U) 500 /ul High Negative [facility] Urine pHOrdered By: Kathie garcias on 11-10-2024 pH (U) 6.5 [pH] 5.0 - 8.0 [facility] Urine sediment bacteria coun t by microscopy (number/high power field)Ordered By: Kathie Powers on 11-10-2024 Bacteria LM.HPF (Urine sed) [#/Area] 2 /[HPF] None Seen [facility] Urine specific gravity measu rementOrdered By: Kathie Powers on 11-10-2024 Specific gravity (U) [Rel density] 1.015 1.002-1.030 [facility] Urine urobilinogen measureme ntOrdered By: Kathie Powers on 11-10-2024 Urobilinogen Ql (U) 1 mg/dl High Normal [facility] Urobilinogen Ql (U)Ordered B y: Kathie Powers on 11-10-2024 Urine urobilinogen measurement 1 mg/dl High Normal [facility] White blood cell (WBC) count Ordered By: Kathie Powers on 04-09-2025 WBC (Bld) [#/Vol] 19.6 10*3/uL High 4.4-11.0 [facility] White blood cell (WBC) count 19.6 K/mm3 High 4.4-11.0 [facility] White blood cell countOrdere d By: Kathie Powers on 11-10-2024 White blood cell count 5-10 SEEN /hpf 0-5 [facility] White blood cell count 5-10 SEEN /hpf 0-5 [facility] pH (U)Ordered By: Kathie Jaffe ce on 11-10-2024 Urine pH 6.5 5.0 - 8.0 [facility] Blood manual differential co mment interpretation (narrative result)Ordered By: Kathie Powers on 11-09-2024 Manual differential comment Marco Antonio (Bld) [Interp] SCANNED [facility] Lactic acid measurementOrder ed By: Kathie Powers on 11-09-2024 Lactic acid measurement 2.4 mmol/L High 0.0-2.0 [facility] Manual differential comment Marco Antonio (Bld) [Interp]Ordered By: Kathie Powers on 11-09-2024 Blood manual differential comment interpretation (narrative result) SCANNED [facility] Pathologist review Marco Antonio (Unsp spec) [Interp]Ordered By: Kathie Powers on 11-09-2024 Review by pathologist N/A [facility] Platelet estimateOrdered By: Kathie Powers on 11-09-2024 Platelets LM Ql (Bld) MKD DEC [facility] Platelets LM Ql (Bld)Ordered By: Kathie Powers on 11-09-2024 Platelet estimate MKD DEC [facility] Review by pathologistOrdered By: Kathie Powers on 11-09-2024 Pathologist review Marco Antonio (Unsp spec) [Interp] N/A [facility] Venous blood ammonia measure mentOrdered By: Kathie Powers on 11-09-2024 Ammonia (P) [Moles/Vol] 104.0 umol/L High 16-60 [facility] Venous blood ammonia measurement 104.0 umol/L High 16-60 [facility] Lipase measurementOrdered By : Kathie Powers on 11-08-2024 Lipase measurement 94 U/L High 13-[address] [facility] Magnesium (Unsp spec) [Mass/ Vol]Ordered By: Kathie Powers on 11-08-2024 Magnesium measurement (mass/volume) 2.4 mg/dL High 1.5-2.2 [facility] Magnesium measurement (mass/ volume)Ordered By: Kathie Powers on 11-08-2024 Magnesium (Unsp spec) [Mass/Vol] 2.4 mg/dL High 1.5-2.2 [facility] Serum phosphorus measurement Ordered By: Kathie Powers on 11-08-2024 Serum phosphorus measurement 1.6 mg/dL Low 2.7-4.5 [facility] Blood polychromasia detectio n by light microscopyOrdered By: Hill Acuña on 11-07-2024 Polychromasia LM Ql (Bld) 1+ [facility] Blood polychromasia detection by light microscopy 1+ [facility] Ovalocyte detectionOrdered B y: Hill Acuña on 11-07-2024 Ovalocytes LM Ql (Bld) 1+ [facility] Band form neutrophils/100 WB C (Bld)Ordered By: Hill Acuña on 11-03-2024 Blood band neutrophil count as percentage of total leukocytes 6 % High 0-5 [facility] Blood band neutrophil count as percentage of total leukocytesOrdered By: Hill Acuña on 11-03-2024 Band form neutrophils/100 WBC (Bld) 6 % High 0-5 [facility] Blood eosinophils/100 leukoc ytesOrdered By: Hill Acuña on 11-03-2024 Eosinophils/100 WBC (Bld) 1 % 0-5 [facility] Blood lymphocytes/100 leukoc ytesOrdered By: Hill Acuña on 11-03-2024 Lymphocytes/100 WBC (Bld) 2 % Low 19-41 [facility] Blood lymphocytes/100 leukocytes 2 % 0-10 [facility] Blood metamyelocytes/100 bri kocytesOrdered By: Hill Acuña on 11-03-2024 Metamyelocytes/100 WBC (Bld) 1 % 0-1 [facility] Blood metamyelocytes/100 leukocytes 1 % 0-5 [facility] Blood monocytes/100 leukocyt esOrdered By: Hill Acuña on 11-03-2024 Monocytes/100 WBC (Bld) 2 % 0-10 [facility] Blood segmented neutrophils/ 100 leukocytesOrdered By: Hill Acuña on 11-03-2024 Segmented neutrophils/100 WBC (Bld) 85 % High 47-70 [facility] Cells counted Molgen (Bld/Ti ss) [#]Ordered By: Hill Acuña on 11-03-2024 Total cell count 100 MANUAL DIFF [facility] Segmented neutrophils/100 WB C (Bld)Ordered By: Hill Acuña on 11-03-2024 Blood segmented neutrophils/100 leukocytes 85 % High 47-70 [facility] Total cell countOrdered By: Hill Acuña on 11-03-2024 Cells counted Molgen (Bld/Tiss) [#] 100 MANUAL DIFF [facility] Erythrocyte morphology asses smentOrdered By: Hill Acuña on 11-02-2024 RBC morphology finding Nom (Bld) NORM C+C NORMAL NORM C&C [facility] RBC morphology finding Nom ( Bld)Ordered By: Hill Acuña on 11-02-2024 Erythrocyte morphology assessment NORM C+C NORMAL NORM C&C [facility] Trough vancomycin levelOrder ed By: Buster Fuchs on 11-01-2024 Vancomycin trough [Mass/Vol] 17.7 ug/mL High 5.0-15.0 [facility] Vancomycin trough [Mass/Vol] Ordered By: Buster Fuchs on 11-01-2024 Trough vancomycin level 17.7 ug/mL High 5.0-15.0 [place] Activated partial thrombopla stin time (aPTT) in platelet poor plasma by coagulation aOrdered By: Buster Fuchs on 10-31-2024 aPTT Coag (PPP) [Time] 42.7 s High 24.1-36.2 [facility] aPTT Coag (PPP) [Time]Ordere d By: Buster Fuchs on 10-31-2024 Activated partial thromboplastin time (aPTT) in platelet poor plasma by coagulation a 42.7 Seconds High 24.1-36.2 [facility] C. difficile Ql (Stl)Ordered By: Hill Wright on 10-30-2024 Stool Clostridium difficile detection Toxigenic C. difficile Abnormal [facility] Clostridium difficile detect ion by polymerase chain reactionOrdered By: Hill Wright on 10-30-2024 C. difficile DNA ANANTH+probe Ql (Unsp spec) [facility] Stool Clostridium difficile detectionOrdered By: Hill Wright on 10-30-2024 C. difficile Ql (Stl) Toxigenic C. difficile Abnormal [facility] Stool lactoferrin detection by immunoassayOrdered By: Hill Wright on 10-30-2024 Lactoferrin IA Ql (Stl) [facility] Arterial patency Wrist arter y --pre arterial punctureOrdered By: Buster Fuchs on 10-29-2024 Assessment of wrist artery patency prior to arterial puncture Positive [facility] Assessment of wrist artery p atency prior to arterial punctureOrdered By: Buster Fuchs on 10-29-2024 Arterial patency Wrist artery --pre arterial puncture Positive [facility] Base excess Calc (BldV) [Mol es/Vol]Ordered By: Buster Fuchs on 10-29-2024 Blood base excess determination -10 mmol/L [facility] Blood base excess determinat ionOrdered By: Buster Fuchs on 10-29-2024 Base excess Calc (BldV) [Moles/Vol] -10 mmol/L [facility] Blood bicarbonate measuremen tOrdered By: Buster Fuchs on 10-29-2024 HCO3 (Bld) [Moles/Vol] 15.2 mmol/L Low 22-26 [place] Blood bicarbonate measurement 15.2 mmol/L Low 22-26 [facility] Blood cultureOrdered By: Hugo Wright on 10-29-2024 Bacteria identified Cx Nom (Bld) No growth in 5 days. [facility] Blood culture No growth in 5 days. [facility] Calculated very low density lipoprotein (VLDL) cholesterol measurementOrdered By: Hill Wright on 10-29-2024 Calculated very low density lipoprotein (VLDL) cholesterol measurement 17 mg/dL 5-40 [facility] Calculated very low density lipoprotein (VLDL) cholesterol measurement 17 mg/dL 5-40 [facility] Cholesterol [Mass/Vol]Ordere d By: Hill Wright on 10-29-2024 Serum or plasma cholesterol measurement (mass/volume) 132 mg/dL <201 [facility] Cholesterol in HDL [Mass/Vol ]Ordered By: Hill Wright on 10-29-2024 Serum or plasma cholesterol in HDL measurement (mass/volume) 33 mg/dL Low >40 [facility] Determination of fraction of inspired oxygenOrdered By: Buster Fuchs on 10-29-2024 Determination of fraction of inspired oxygen 21.0 [facility] Electrocardiogram reportOrde red By: Jeovanny Ramos on 10-29-2024 EKG study [facility] Other Phone: LDL calc ser/plasOrdered By: Hill Wright on 10-29-2024 Cholesterol in LDL [Mass/Vol] 83 mg/dL [facility] Measurement, pHOrdered By: Stacy Fuchs on 10-29-2024 pH (Unsp spec) 7.39 [pH] 7.35-7.45 [facility] No Panel InformationOrdered By: Buster Fuchs on 10-29-2024 ART [facility] L Radial [facility] Not entered [facility] Room Air [facility] No Panel InformationOrdered By: Hill Wright on 10-29-2024 10.20 ug/dL 6.02-18.40 [facility] Osmolality, serumOrdered By: Hill Wright on 10-29-2024 Osmolality, serum 292 mOsm/KG 275-[address] [facility] Oxygen saturation measuremen tOrdered By: Buster Fuchs on 10-29-2024 Oxygen saturation measurement 93 % Low 95-99 [facility] Partial pressure of carbon d ioxide measurementOrdered By: Buster Fuchs on 10-29-2024 Partial pressure of carbon dioxide measurement 25.1 mmHg Low 35-45 [facility] Partial pressure of oxygen m easurementOrdered By: Buster Fuchs on 10-29-2024 Partial pressure of oxygen measurement 67 mmHG Low 75-100 [facility] Screening total cholesterol/ high density lipoprotein (HDL) cholesterol ratioOrdered By: Hill Wright on 10-29-2024 Screening total cholesterol/high density lipoprotein (HDL) cholesterol ratio 4.04 [facility] Serum or plasma cholesterol in HDL measurement (mass/volume)Ordered By: Hill Wright on 10-29-2024 Cholesterol in HDL [Mass/Vol] 33 mg/dL Low >40 [facility] Serum or plasma cholesterol measurement (mass/volume)Ordered By: Hill Wright on 10-29-2024 Cholesterol [Mass/Vol] 132 mg/dL <201 [facility] Total carbon dioxide measure mentOrdered By: Buster Fuchs on 10-29-2024 CO2 [Moles/Vol] 16 mmol/L [facility] Total carbon dioxide measurement 16 mmol/L [facility] Triglycerides measurementOrd ered By: Hill Wright on 10-29-2024 Triglycerides measurement 83 mg/dL [facility] Urine cultureOrdered By: Viraj Dunn on 10-29-2024 Bacteria identified Cx Nom (U) Culture exhibits no growth. [facility] Urine culture Culture exhibits no growth. [facility] pH (Unsp spec)Ordered By: Marianna Fuchs on 10-29-2024 Measurement, pH 7.39 7.35-7.45 [facility] Absolute neutrophil countOrd ered By: Alber Dunn on 10-28-2024 Neutrophils (Bld) [#/Vol] 19.0 10*3/uL High 2.0-7.7 [facility] Amorphous sediment LM Ql (Ur ine sed)Ordered By: Alber Dunn on 10-28-2024 Amorphous sediment detection in urine sediment by light microscopy 1+ URATE [facility] Amorphous sediment detection in urine sediment by light microscopyOrdered By: Alber Dunn on 10-28-2024 Amorphous sediment LM Ql (Urine sed) 1+ URATE [facility] Anion gap in Serum or Plasma Ordered By: Alber Dunn on 10-28-2024 Anion gap [Moles/Vol] 17 mmol/L High 5-15 [facility] BUN/creatinine ratioOrdered By: Alber Dunn on 10-28-2024 Urea nitrogen/Creatinine [Mass ratio] 18.8 mg/mg 10-20 [facility] Basophil percentageOrdered B y: Alber Dunn on 10-28-2024 Basophils/100 WBC (Bld) 0.2 % 0-1 [facility] Bilirubin Test strip Ql (U)O rdered By: Alber Dunn on 10-28-2024 Bilirubin Ql (U) 1 mg/dL High Negative [place] [facility] Comment on above: COLOR OF URINE MAY A FFECT DIPSTICK RESULTS. Bilirubin, totalOrdered By: Alber Dunn on 10-28-2024 Bilirubin [Mass/Vol] 1.86 mg/dL High 0.00-1.30 [facility] Carbon dioxide, total [Moles /volume] in Central venous bloodOrdered By: Alber Dunn on 10-28-2024 CO2 [Moles/Vol] 12.4 mmol/L Low 21.0-32.0 [facility] Chloride assayOrdered By: Hernesto Dunn on 10-28-2024 Chloride [Moles/Vol] 98 mmol/L 98-108 [facility] Eosinophil percentageOrdered By: Alber Dunn on 10-28-2024 Eosinophils/100 WBC (Bld) 1.4 % 0-5 [facility] Epithelial cells.squamous LM Ql (Urine sed)Ordered By: Alber Dunn on 10-28-2024 Epithelial cells.squamous LM.HPF (Urine sed) [#/Area] 5 /[HPF] 0-5 [facility] Erythrocyte distribution wid th ratioOrdered By: Alber Dunn on 10-28-2024 Erythrocyte distribution width (RBC) [Ratio] 19.1 % High 11.6-14.6 [facility] Erythrocyte distribution wid th standard deviationOrdered By: Alber Dunn on 10-28-2024 Erythrocyte distribution width (RBC) [Entitic vol] 62.7 fL High 35.1-43.9 [facility] GFR/1.73 sq M.predicted niki g non-blacks MDRD (S/P/Bld) [Vol rate/Area]Ordered By: Alber Dunn on 10-28-2024 Estimated GFR (MDRD) Non-Af Amer 62 >60 [facility] Comment on above: mL/min/1.73m2 CKD-EP I Creatinine Equation (2020) Glucose Ql (U)Ordered By: Hernesto Dunn on 10-28-2024 Glucose (U) [Mass/Vol] 50 mg/dL High Normal [facility] HbA1c (Bld) [Mass fraction]O rdered By: Hill Wright on 10-28-2024 Hemoglobin A1c percentage 6.7 % >5.7 [facility] Hematocrit Auto (Bld) [Volum e fraction]Ordered By: lAber Dunn on 10-28-2024 Hematocrit (Bld) [Volume fraction] 37.3 % Low 40-54 [facility] Hemoglobin A1c percentageOrd ered By: Hill Wright on 10-28-2024 HbA1c (Bld) [Mass fraction] 6.7 % >5.7 [facility] Hemoglobin measurementOrdere d By: Alber Dunn on 10-28-2024 Hemoglobin (Bld) [Mass/Vol] 12.7 g/dL Low 13.0-16.5 [facility] Immature granulocytes/100 WB C Auto (Bld)Ordered By: Alber Dunn on 10-28-2024 Immature granulocytes/100 WBC (Bld) 1.400 % High 0.0-0.9 [facility] Comment on above: IG% - Immature Granu locytes (promyelocytes, myelocytes and metamyelocytes) > 1% indicates that a LEFT SHIFT is Present. Ketones Test strip Ql (U)Ord ered By: Alber Dunn on 10-28-2024 Ketones Ql (U) 5 mg/dl High Negative [facility] Laboratory - Chemistry and C hemistry - challengeOrdered By: Alber Dunn on 10-28-2024 AST [Catalytic activity/Vol] 48 U/L High <38 [facility] Comment on above: Hemolysis present, R esults could be affected. Laboratory - Hematology and Cell countsOrdered By: Alber Dunn on 10-28-2024 Anisocytosis Ql (Bld) RARE [facility] Lactic acid measurementOrder ed By: Alber Dunn on 10-28-2024 Lactate [Moles/Vol] 4.0 mmol/L High 0.0-2.0 [facility] Comment on above: Critical Result(s) C [...] 10-28-2024 Lipase [Catalytic activity/Vol] 45 U/L 13-75 [facility] Comment on above: Please note:LIPASE r evised reference range effective 22. New Lipase methodology. Expected to produce lower values than the previous assay method. NEW Reference Range: 13 - 75 U/L Lymphocytes Auto (Unsp spec) [#/Vol]Ordered By: Alber Dunn on 10-28-2024 Lymphocytes (Bld) [#/Vol] 1.28 10*3/uL 0.83-4.51 [facility] Lymphocytes/100 WBC Auto (Un sp spec)Ordered By: Alber Dunn on 10-28-2024 Lymphocytes/100 WBC (Bld) 5.6 % Low 19-41 [facility] MCV (mean corpuscular volume ) determinationOrdered By: Alber Dunn on 10-28-2024 MCV (RBC) [Entitic vol] 91.2 fL 80-94 [facility] Macrocytes Ql (Bld)Ordered B y: Alber Dunn on 10-28-2024 Macrocytosis RARE [facility] Macrocytes detection RARE [facility] Macrocytes detectionOrdered By: Alber Dunn on 10-28-2024 Macrocytes Ql (Bld) RARE [facility] Manual differential comment Marco Antonio (Bld) [Interp]Ordered By: Alber Dunn on 10-28-2024 Differential Comment SEE COMMENT [facility] Comment on above: MONOCYTOSIS NOTED Mean corpuscular hemoglobin (MCH) determinationOrdered By: Alber Dunn on 10-28-2024 MCH (RBC) [Entitic mass] 31.1 pg 27.0-32.0 [facility] Mean corpuscular hemoglobin concentration (MCHC) determinationOrdered By: Alber Dunn on 10-28-2024 MCHC (RBC) [Mass/Vol] 34.0 g/dL 32-36 [facility] Mean platelet volume determi nationOrdered By: Alber Dunn on 10-28-2024 Platelet mean volume (Bld) [Entitic vol] 12.0 fL 6.2-12.0 [facility] Microscopic analysis of urin e for red blood cells (RBC)Ordered By: Alber Dunn on 10-28-2024 Urine RBC > 100 SEEN /hpf 0-5 [facility] Monocyte percentageOrdered B y: Alber Dunn on 10-28-2024 Monocytes/100 WBC (Bld) 8.4 % 0-10 [facility] Mucus LM Ql (Urine sed)Order ed By: Alber Dunn on 10-28-2024 Mucus Ql (Urine sed) 0 SEEN /hpf [facility] Neutrophil percentageOrdered By: Alber Dunn on 10-28-2024 Neutrophils/100 WBC (Bld) 83.0 % High 47-70 [facility] Nitrite Test strip Ql (U)Ord ered By: Alber Dunn on 10-28-2024 Nitrite Ql (U) Negative Negative [facility] Nucleated red blood cell per centageOrdered By: Alber Dunn on 10-28-2024 Nucleated RBC/100 WBC (Bld) [Ratio] 0 % 0-5 [facility] Osmolality (U) [Osmolality]O rdered By: Hill Wright on 10-28-2024 Osmolality ur 484 mOsm/KG >50 [facility] Osmolality urOrdered By: Hugo Wright on 10-28-2024 Osmolality (U) [Osmolality] 484 mOsm/KG >50 [facility] Ovalocytes LM Ql (Bld)Ordere d By: Alber Dunn on 10-28-2024 Ovalocytes RARE [facility] Pathologist review Marco Antonio (Unsp spec) [Interp]Ordered By: Alber Dunn on 10-28-2024 Differential Pathologist's Review May [facility] Platelet countOrdered By: Hernesto Dunn on 10-28-2024 Platelets (Bld) [#/Vol] 142 10*3/uL Low 150-450 [facility] Platelets LM Ql (Bld)Ordered By: Alber Dunn on 10-28-2024 Platelet Estimate ADEQUATE ADEQ [facility] Potassium (Unsp spec) [Mass/ Vol]Ordered By: Alber Dunn on 10-28-2024 Potassium [Moles/Vol] 4.5 mmol/L 3.3-5.1 [facility] Comment on above: Hemolysis present, R esults could be affected. Protein Test strip Ql (U)Ord ered By: Alber Dunn on 10-28-2024 Protein Ql (U) 500 mg/dl High Negative [facility] RBC Auto (Bld) [#/Vol]Ordere d By: Alber Dunn on 10-28-2024 RBC (Bld) [#/Vol] 4.09 10*6/uL Low 4.6-6.2 [facility] RBC morphology finding Nom ( Bld)Ordered By: Alber Dunn on 10-28-2024 Red Blood Cell Morphology N CHROM NORMAL NORM C&C [facility] Serum creatinine measurement (mass/volume)Ordered By: Alber Dunn on 10-28-2024 Creatinine [Mass/Vol] 1.33 mg/dL High 0.70-1.20 [facility] Serum globulin measurementOr dered By: Alber Dunn on 10-28-2024 Globulin (S) [Mass/Vol] 3.4 g/dL 2.2-4.2 [facility] Serum glucose measurement (m ass/volume)Ordered By: Alber Dunn on 10-28-2024 Glucose [Mass/Vol] 338 mg/dL High 70-[address] [facility] Serum or plasma alanine thomas otransferase (ALT) measurementOrdered By: Alber Dunn on 10-28-2024 ALT [Catalytic activity/Vol] 23 U/L <47 [facility] Serum or plasma albumin roosevelt urement (mass/volume)Ordered By: Alber Dunn on 10-28-2024 Albumin [Mass/Vol] 2.5 g/dL Low 3.5-5.[address] [facility] Serum or plasma albumin/glob ulin mass ratioOrdered By: Alber Dunn on 10-28-2024 Albumin/Globulin [Mass ratio] 0.7 {ratio} Low 0.9-2.4 [facility] Serum or plasma alkaline kendrick sphatase measurementOrdered By: Alber Dunn on 10-28-2024 ALP [Catalytic activity/Vol] 274 U/L High 40-129 [facility] Serum or plasma calcium roosevelt urement (mass/volume)Ordered By: Alber Dunn on 10-28-2024 Calcium [Mass/Vol] 9.2 mg/dL 7.6-11.[address] [facility] Serum or plasma urea nitroge n measurement (mass/volume)Ordered By: Alber Dunn on 10-28-2024 Urea nitrogen [Mass/Vol] 25 mg/dL High 4-19 [facility] Sodium levelOrdered By: Alber Dunn on 10-28-2024 Sodium [Moles/Vol] 128 mmol/L Low 133-[address] [facility] Total proteinOrdered By: Viraj Dunn on 10-28-2024 Protein [Mass/Vol] 5.9 g/dL 5.9-8.[address] [facility] Urine blood detectionOrdered By: Alber Dunn on 10-28-2024 Urine Occult Blood 250 /ul High Negative [facility] Urine clarityOrdered By: Viraj Dunn on 10-28-2024 Clarity (U) Cloudy Clear [facility] Urine color determinationOrd ered By: Alber Dunn on 10-28-2024 Color (U) Red Yellow [facility] Urine leukocyte esterase det ection by dipstickOrdered By: Alber Dunn on 10-28-2024 Leukocyte esterase Test strip Ql (U) 500 /ul High Negative [facility] Urine pHOrdered By: Alber grajeda on 10-28-2024 pH (U) 6.5 [pH] 5.0 - 8.0 [facility] Urine sediment bacteria coun t by microscopy (number/high power field)Ordered By: Alber Dunn on 10-28-2024 Bacteria LM.HPF (Urine sed) [#/Area] 1 /[HPF] None Seen [facility] Urine specific gravity measu rementOrdered By: Alber Dunn on 10-28-2024 Specific gravity (U) [Rel density] 1.015 1.002-1.030 [facility] Urobilinogen Ql (U)Ordered B y: Alber Dunn on 10-28-2024 Urine Urobilinogen Normal mg/dl Normal [facility] White blood cell (WBC) count Ordered By: Alber Dunn on 10-28-2024 WBC (Bld) [#/Vol] 22.9 10*3/uL High 4.4-11.0 [facility] White blood cell countOrdere d By: Alber Dunn on 10-28-2024 Urine WBC >100 SEEN /hpf 0-5 [facility] APTTon 10-04-2024 aPTT Coag (PPP) [Time] 40 s High [facility] Albuminon 10-04-2024 Albumin (Body fld) [Mass/Vol] <0.5 Normal Not established [facility] Comment on above: Order Comment: Venip uncture immediately after or during the administration of Metamizole may lead to falsely low results. Testing should be performed immediately prior to Metamizole dosing. Performed By: #### 2 524-7 #### MIREYA SHAH ([id number]) [facility] ([facility]) [address] [place] [address]59[address] Bacteria identifiedon 2024 Bacteria identified Cx Nom (Body fld) Test: Sterile Fluid Culture/Smear Specimen Source: Pleural Specimen Type: Fluid Specimen Date: 10/04/20241713 Result Date: 10/08/2024824 Result Status: Final result Resulting Lab: [facility] [address] [address] CULTURE No growth aerobically and anaerobically STAIN (1+) Rare Polymorphonuclear leukocytes No organisms seen Normal [facility] Comment on above: Performed By: #### 2 524-7 #### MIREYA SHAH ([id number]) [facility] ([facility]) [address] [place] [address]347 Basic metabolic 2000 panelon 10-04-2024 Anion gap [Moles/Vol] 8 mmol/L Low 10 - 2 0 mmol/L [facility] Calcium [Mass/Vol] 8.1 mg/dL Low 8.6 - 10. 3 mg/dL [facility] Chloride [Moles/Vol] 109 mmol/L High 98 - 10 7 mmol/L [facility] CO2 [Moles/Vol] 24 mmol/L 21 - 32 mmol/L [facility] Creatinine [Mass/Vol] 0.73 mg/dL 0.50 - 1.30 mg/dL [facility] eGFR - PINF [facility] Comment on above: Calculations of patric mated GFR are performed using the 2020 CKD-EPI Study Refit equation without the race variable for the IDMS-Traceable creatinine methods. https://jasn.asnjournals.org/content/early/ASN.2020 905765 Glucose [Mass/Vol] 197 mg/dL High 74 - 99 mg/dL [facility] Potassium [Moles/Vol] 3.9 mmol/L 3.5 - 5.3 mmol/L [facility] Sodium [Moles/Vol] 137 mmol/L 136 - 145 mmol/L [facility] Urea nitrogen [Mass/Vol] 17 mg/dL 6 - 23 mg/dL [facility] Anion gap [Moles/Vol] 8 mmol/L Low 10-20 [facility] Comment on above: Performed By: #### 2 4321-2 #### MIREYA SHAH ([id number]) [facility] ([facility]) [address] [place] [address] Calcium [Mass/Vol] 8.1 mg/dL Low 8.6-10.3 [facility] Comment on above: Performed By: #### 2 4321-2 #### MIREYA SHAH ([id number]) [facility] ([facility]) [address] [place] [address] Chloride [Moles/Vol] 109 mmol/L High 98-107 [facility] Comment on above: Performed By: #### 2 4321-2 #### MIREYA SHAH ([id number]) [facility] ([facility]) [facility] [place] [address] CO2 [Moles/Vol] 24 mmol/L Normal 21-32 [facility] Comment on above: Performed By: #### 2 4321-2 #### MIREYA SHAH ([id number]) [facility] ([facility]) [address] [place] [address] Creatinine [Mass/Vol] 0.73 mg/dL Normal 0.50-1.30 [facility] Comment on above: Performed By: #### 2 4321-2 #### MIREYA SHAH ([id number]) [facility] ([facility]) [address] [place] [address]27 GFR/1.73 sq M.predicted MDRD (S/P/Bld) [Vol rate/Area] mL/min/{1.73_m2} Normal >60 [facility] Comment on above: Result Comment: Calc ulations of estimated GFR are performed using the 2020 CKD-EPI Study Refit equation without the race variable for the IDMS-Traceable creatinine methods. https://jasn.asnjournals.org/content/early/ASN.2020 737158 Performed By: #### 2 4321-2 #### MIREYA SHAH ([id number]) [facility] ([facility]) [address] [place] [address] Glucose [Mass/Vol] 197 mg/dL High 74-99 [facility] Comment on above: Performed By: #### 2 4321-2 #### MIREYA SHAH ([id number]) [facility] ([facility]) [address] [place] [address] Potassium [Moles/Vol] 3.9 mmol/L Normal 3.5-5.3 [facility] Comment on above: Performed By: #### 2 4321-2 #### MIREYA SHAH ([id number]) [facility] ([facility]) [address] [place] [address] 43796 Sodium [Moles/Vol] 137 mmol/L Normal 136-145 [facility] Comment on above: Performed By: #### 2 4321-2 #### MIREYA SHAH ([id number]) [facility] ([facility]) [address] [place] [address] Urea nitrogen [Mass/Vol] 17 mg/dL Normal 6-23 [facility] Comment on above: Performed By: #### 2 4321-2 #### MIREYA SHAH ([id number]) [facility] ([facility]) [address] [place] [address] 40169 CBC W Auto Differential pane l (Bld)on 10-04-2024 Basophils (Bld) [#/Vol] 0.02 10*3/uL [facility] Basophils/100 WBC (Bld) 0.4 % 0.0 - 2.0 % [facility] Eosinophils (Bld) [#/Vol] 0.15 10*3/uL [facility] Eosinophils/100 WBC (Bld) 2.7 % 0.0 - 6.0 % [facility] Erythrocyte distribution width (RBC) [Ratio] 22.1 % High 11.5 - 14.5 % [facility] Hematocrit (Bld) [Volume fraction] 29.8 % Low 41.0 - 52.0 % [facility] Hemoglobin (Bld) [Mass/Vol] 9.3 g/dL Low 13.5 - 17.5 g/dL [facility] Immature granulocytes (Bld) [#/Vol] 0.01 10*3/uL [facility] Immature granulocytes/100 WBC (Bld) 0.2 % 0.0 - 0.9 % [facility] Comment on above: Immature Granulocyte Count (IG) includes promyelocytes, myelocytes and metamyelocytes but does not include bands. Percent differential counts (%) should be interpreted in the context of the absolute cell counts (cells/UL). Interpretation and review of laboratory results Abnormal [facility] Lymphocytes (Bld) [#/Vol] 0.64 10*3/uL Low [facility] Lymphocytes/100 WBC (Bld) 11.5 % 13.0 - 44.0 % [facility] MCH (RBC) [Entitic mass] 30 pg 26.0 - 34.0 pg [facility] MCHC (RBC) [Mass/Vol] 31.2 g/dL Low 32.0 - 36.0 g/dL [facility] MCV (RBC) [Entitic vol] 96 fL 80 - 100 fL [facility] Monocytes (Bld) [#/Vol] 0.46 10*3/uL [facility] Monocytes/100 WBC (Bld) 8.3 % 2.0 - 10.0 % [facility] Neutrophils (Bld) [#/Vol] 4.28 10*3/uL [facility] Comment on above: Percent differential counts (%) should be interpreted in the context of the absolute cell counts (cells/uL). Neutrophils/100 WBC (Bld) 76.9 % 40.0 - 80.0 % [facility] Nucleated RBC/100 WBC (Bld) [Ratio] 0 % [facility] Platelets (Bld) [#/Vol] 65 10*3/uL Low U [facility] RBC (Bld) [#/Vol] 3.1 10*6/uL Low [facility] WBC (Bld) [#/Vol] 5.6 10*3/uL [facility] Basophils (Bld) [#/Vol] 0.02 x10*3/uL Normal 0.00-0.10 [facility] Comment on above: Performed By: #### 5 7021-8 #### MIREYA SHAH ([id number]) [facility] ([facility]) [address] [place] [address] 51228 Basophils/100 WBC (Bld) 0.4 % Normal 0.0-2.[address] [facility] Comment on above: Performed By: #### 5 7021-8 #### MIREYA SHAH ([id number]) [facility] ([facility]) [address] [place] [address] 82324 Eosinophils (Bld) [#/Vol] 0.15 x10*3/uL Normal 0.00-0.70 [facility] Comment on above: Performed By: #### 7021-8 #### MIREYA SHAH ([id number]) [facility] ([facility]) [address] [place] [address] 76743 Eosinophils/100 WBC (Bld) 2.7 % Normal 0.0-6.0 [facility] Comment on above: Performed By: #### 5 7021-8 #### MIREYA SHAH ([id number]) [facility] ([facility]) [address] [place] [address] 94664 Erythrocyte distribution width (RBC) [Ratio] 22.1 % High 11.5-14.5 [facility] Comment on above: Performed By: #### 5 7021-8 #### MIREYA SHAH ([id number]) [facility] ([facility]) [address] [place] [address] 10610 Hematocrit (Bld) [Volume fraction] 29.8 % Low 41.0-52.0 [facility] Comment on above: Performed By: #### 5 7021-8 #### MIREYA SHAH ([id number]) [facility] ([facility]) [address] [place] [address] 99917 Hemoglobin (Bld) [Mass/Vol] 9.3 g/dL Low 13.5-17.5 [facility] Comment on above: Performed By: #### 5 7021-8 #### MIREYA SHAH ([id number]) [facility] ([facility]) [address] [place] [address] 34472 Immature granulocytes (Bld) [#/Vol] 0.01 x10*3/uL Normal 0.00-0.70 [facility] Comment on above: Performed By: #### 5 7021-8 #### MIREYA SHAH ([id number]) [facility] ([facility]) [address] [place] [address] 56286 Immature granulocytes/100 WBC (Bld) 0.2 % Normal 0.0-0.9 [facility] Comment on above: Result Comment: Danielle ture Granulocyte Count (IG) includes promyelocytes, myelocytes and metamyelocytes but does not include bands. Percent differential counts (%) should be interpreted in the context of the absolute cell counts (cells/UL). Performed By: #### 5 7021-8 #### MIREYA SHAH ([id number]) [facility] ([facility]) [address] [place] [address] 78092 Lymphocytes (Bld) [#/Vol] 0.64 x10*3/uL Low 1.20-4.80 [facility] Comment on above: Performed By: #### 5 7021-8 #### MIREYA SHAH ([id number]) [facility] ([facility]) [address] [place] [address] 69799 Lymphocytes/100 WBC (Bld) 11.5 % Normal 13.0-44.0 [facility] Comment on above: Performed By: #### 5 7021-8 #### MIREYA SHAH ([id number]) [facility] ([facility]) [address] [place] [address] 46930 MCH (RBC) [Entitic mass] 30.0 pg Normal 26.0-34.0 [facility] Comment on above: Performed By: #### 5 7021-8 #### MIREYA SHAH ([id number]) [facility] ([facility]) [address] [place] [address] 72209 MCHC (RBC) [Mass/Vol] 31.2 g/dL Low 32.0-36.0 [facility] Comment on above: Performed By: #### 5 7021-8 #### MIREYA SHAH ([id number]) [facility] ([facility]) [address] [place] [address] 47733 MCV (RBC) [Entitic vol] 96 fL Normal 80-100 U [facility] Comment on above: Performed By: #### 5 7021-8 #### MIREYA SHAH ([id number]) [facility] ([facility]) [address] [place] [address] 49761 Monocytes (Bld) [#/Vol] 0.46 x10*3/uL Normal 0.10-1.00 [facility] Comment on above: Performed By: #### 5 7021-8 #### MIREYA SHAH ([id number]) [facility] ([facility]) [address] [place] [address] 59237 Monocytes/100 WBC (Bld) 8.3 % Normal 2.0-10.[address] [facility] Comment on above: Performed By: #### 5 7021-8 #### MIREYA SHAH ([id number]) [facility] ([facility]) [address] [place] [address] 70978 Neutrophils (Bld) [#/Vol] 4.28 x10*3/uL Normal 1.20-7.70 [facility] Comment on above: Result Comment: Perc ent differential counts (%) should be interpreted in the context of the absolute cell counts (cells/uL). Performed By: #### 5 7021-8 #### MIREYA SHAH ([id number]) [facility] ([facility]) [address] [place] [address] 48457 Neutrophils/100 WBC (Bld) 76.9 % Normal 40.0-80.0 [facility] Comment on above: Performed By: #### 5 7021-8 #### MIREYA SHAH ([id number]) [facility] ([facility]) [address] [place] [address] [id number] Nucleated RBC/100 WBC (Bld) [Ratio] 0.0 /100 WBCs Normal 0.0-0.0 [facility] Comment on above: Performed By: #### 5 7021-8 #### MIREYA SHAH ([id number]) [facility] ([facility]) [address] [place] [address] 03638 Platelets (Bld) [#/Vol] 65 x10*3/uL Low 150-450 [facility] Comment on above: Performed By: #### 5 7021-8 #### MIREYA SHAH ([id number]) [facility] ([facility]) [address] [place] [address] 88854 RBC (Bld) [#/Vol] 3.10 x10*6/uL Low 4.50-5.90 [facility] Comment on above: Performed By: #### 5 7021-8 #### MIREYA SHAH ([id number]) [facility] ([facility]) [address] [place] [address] 05970 WBC (Bld) [#/Vol] 5.6 x10*3/uL Normal 4.4-11.3 [facility] Comment on above: Performed By: #### 5 7021-8 #### MIREYA SHAH ([id number]) [facility] ([facility]) [address] [place] [address] CT ABDOMEN PELVIS W IV CONTR [place] 10-04-2024 CT ABDOMEN PELVIS W IV CONTRAST Interpreted By: Yohana Huang, STUDY: CT ABDOMEN PELVIS W IV CONTRAST; 10/04/2024 2:16 pm INDICATION: Signs/Symptoms:generaliz ed abdominal pain, hx of cirrhosis, recent paracentesis. COMPARISON: None. ACCESSION NUMBER(S): [id number] ORDERING CLINICIAN: SRIRAM OLEARY TECHNIQUE: CT of [...] Yohana Huang 10/04/2024 2:28 PM Dictation workstation: [id number] [facility] CT Abdomen and Pelvis W cont rast Jamari 10-04-2024 Coronary artery calcifications. Anasarca. Ascites. Small irregular liver consistent with cirrhosis. Extensive collateral vessels. Enlarged spleen. Ventral and inguinal hernias containing ascitic fluid. MACRO: none Signed by: Yohana Huang 10/04/2024 2:28 PM Dictation workstation: [id number] Interpreted By: Yohana Chen, STUDY: CT ABDOMEN PELVIS W IV CONTRAST; 10/04/2024 2:16 pm INDICATION: Signs/Symptoms:generaliz ed abdominal pain, hx of cirrhosis, recent paracentesis. COMPARISON: None. ACCESSION NUMBER(S): [id number] ORDERING CLINICIAN: SRIRAM MANOCCHIO TECHNIQUE: CT of the abdomen and pelvis [...] cirrhosis, recent paracentesis. COMPARISON: None. ACCESSION NUMBER(S): [id number] ORDERING CLINICIAN: SRIRAM OLEARY TECHNIQUE: CT of [...] Yohana Huang 10/04/2024 2:28 PM Dictation workstation: [id number] [facility] Work Phone: Radiology Study observation (narrative) [facility] Work Phone: CT Abdomen and Pelvis W cont rast IVOrdered By: Yohana Huang on 10-04-2024 [facility] Work Phone: Cell count panel (Body fld)O rdered By: Fortino Mcgee on 10-04-2024 Clarity (Body fld) Hazy Abnormal Clear [facility] Color (Body fld) Straw Colorless, Straw, Yellow [facility] Interpretation and review of laboratory results Abnormal [facility] RBC Auto (Body fld) [#/Vol] 2000 /uL see comment [facility] WBC (Body fld) [#/Vol] 0.058 10*3/uL See Commen t [facility] Body Fluid cell coun t reference ranges have not been established by [facility]. Reference ranges provided are based on published references. [facility] Cell count panel (Body fld)o n 10-04-2024 Clarity (Body fld) Hazy Abnormal Clear [facility] Comment on above: Order Comment: Body Fluid cell count reference ranges have not been established by [facility]. Reference ranges provided are based on published references. Performed By: #### 3 4556-1 #### MIREYA SHAH ([id number]) [facility] ([facility]) [address] [place] [address] Color (Body fld) Straw Normal Colorless, Straw, Yellow [facility] Comment on above: Order Comment: Body Fluid cell count reference ranges have not been established by [facility]. Reference ranges provided are based on published references. Performed By: #### 3 4556-1 #### MIREYA SHAH ([id number]) [facility] ([facility]) [address] [place] [address] RBC Auto (Body fld) [#/Vol] 2000 /uL Normal see comment [facility] Comment on above: Order Comment: Body Fluid cell count reference ranges have not been established by [facility]. Reference ranges provided are based on published references. Performed By: #### 3 4556-1 #### MIREYA SHAH ([id number]) [facility] ([facility]) [address] [place] [address] WBC (Body fld) [#/Vol] 0.058 10*3/uL Normal See Commen t [facility] Comment on above: Order Comment: Body Fluid cell count reference ranges have not been established by [facility]. Reference ranges provided are based on published references. Performed By: #### 3 4556-1 #### MIREYA SHAH ([id number]) [facility] ([facility]) [address] [place], [place] [phone] Coagulation surface inducedo n 10-04-2024 aPTT Coag (PPP) [Time] 40 s High 26-36 [facility] Comment on above: Order Comment: The A PTT is no longer used for monitoring Unfractionated Heparin Therapy. For monitoring Heparin Therapy, use the Heparin Assay. Performed By: #### 1 4979-9 #### MIREYA SHAH ([id number]) [facility] ([facility]) [address] [place] [address] 27827 Coagulation tissue factor in [place] 10-04-2024 PT Coag (PPP) [Time] 23.6 s High 9.8-12.4 [facility] Comment on above: Performed By: #### 5 902-2 #### MIREYA SHAH ([id number]) [facility] ([facility]) [address] [place] [address] 62151 Differential panel (Body fld )on 10-04-2024 Basophils/100 WBC (Body fld) 0 % not established [facility] Blasts/100 WBC Manual cnt (Body fld) 0 % not established [facility] Cells Counted Total (Body fld) [#] 100 [facility] Eosinophils/100 WBC Manual cnt (Body fld) 0 % see comment [facility] Immature Granulocytes %, Manual, Fluid 0 % not established [facility] Interpretation and review of laboratory results Abnormal [facility] Lymphocytes/100 WBC Manual cnt (Body fld) 19 % see comment [facility] Monocytes+Macrophages/1 00 WBC Manual cnt (Body fld) 17 % see comment [facility] Neutrophils/100 WBC (Body fld) 40 % see comment [facility] Other cells/100 WBC Manual cnt (Body fld) 24 % High not established [facility] Comment on above: Mesothelial cells no tianna by tech Plasma cells/100 WBC Manual cnt (Body fld) 0 % not established [facility] Body Fluid cell differential reference ranges have not been established by [facility]. Reference ranges provided are based on published references. [facility] Basophils/100 WBC (Body fld) 0 % Normal not established [facility] Comment on above: Order Comment: Body Fluid cell differential reference ranges have not been established by [facility]. Reference ranges provided are based on published references. Performed By: #### 2 9580-8 #### MIREYA SHAH ([id number]) [facility] ([facility]) [facility] [place] [phone] Blasts/100 WBC Manual cnt (Body fld) 0 % Normal not established [facility] Comment on above: Order Comment: Body Fluid cell differential reference ranges have not been established by [facility]. Reference ranges provided are based on published references. Performed By: #### 2 9580-8 #### MIREYA SHAH ([id number]) [facility] ([facility]) [address] [place] [address] Cells Counted Total (Body fld) [#] 100 Normal [facility] Comment on above: Order Comment: Body Fluid cell differential reference ranges have not been established by [facility]. Reference ranges provided are based on published references. Performed By: #### 2 9580-8 #### MIREYA SHAH ([id number]) [facility] ([facility]) [address] [place] [address] 60553 Eosinophils/100 WBC Manual cnt (Body fld) 0 % Normal see comment [facility] Comment on above: Order Comment: Body Fluid cell differential reference ranges have not been established by [facility]. Reference ranges provided are based on published references. Performed By: #### 2 9580-8 #### MIREYA SHAH ([id number]) [facility] ([facility]) [address] [place] [address] 59409 IMMATURE GRANULOCYTES IN FLUID 0 % Normal not established [facility] Comment on above: Order Comment: Body Fluid cell differential reference ranges have not been established by [facility]. Reference ranges provided are based on published references. Performed By: #### 2 9580-8 #### MIREYA SHAH ([id number]) [facility] ([facility]) [address] [place] [address]24 Lymphocytes/100 WBC Manual cnt (Body fld) 19 % Normal see comment [facility] Comment on above: Order Comment: Body Fluid cell differential reference ranges have not been established by [facility]. Reference ranges provided are based on published references. Performed By: #### 2 9580-8 #### MIREYA SHAH ([id number]) [facility] ([facility]) [address] [place] [address] Monocytes+Macrophages/1 00 WBC Manual cnt (Body fld) 17 % Normal see comment [facility] Comment on above: Order Comment: Body Fluid cell differential reference ranges have not been established by [facility]. Reference ranges provided are based on published references. Performed By: #### 2 9580-8 #### MIREYA SHAH ([id number]) [facility] ([facility]) [address] [place] [address] 18821 Neutrophils/100 WBC (Body fld) 40 % Normal see comment [facility] Comment on above: Order Comment: Body Fluid cell differential reference ranges have not been established by [facility]. Reference ranges provided are based on published references. Performed By: #### 2 9580-8 #### MIREYA SHAH ([id number]) [facility] ([facility]) [address] [place] [address] 78958 Other cells/100 WBC Manual cnt (Body fld) 24 % High not established [facility] Comment on above: Order Comment: Body Fluid cell differential reference ranges have not been established by [facility]. Reference ranges provided are based on published references. Result Comment: Meso thelial cells noted by tech Performed By: #### 2 9580-8 #### MIREYA SHAH ([id number]) [facility] ([facility]) [address] [place] [address] 83300 Plasma cells/100 WBC Manual cnt (Body fld) 0 % Normal not established [facility] Comment on above: Order Comment: Body Fluid cell differential reference ranges have not been established by [facility]. Reference ranges provided are based on published references. Performed By: #### 2 9580-8 #### MRIEYA SHAH ([id number]) [facility] ([facility]) [address] [place] [address] Glucoseon 10-04-2024 Glucose (Body fld) [Mass/Vol] 200 mg/dL Normal Not established [facility] Comment on above: Order Comment: Venip uncture immediately after or during the administration of Metamizole may lead to falsely low results. Testing should be performed immediately prior to Metamizole dosing. Performed By: #### 2 524-7 #### MIREYA SHAH ([id number]) [facility] ([facility]) [address] [place] [address] Hepatic function 2000 panelo n 10-04-2024 Albumin BCP dye [Mass/Vol] 2.4 g/dL Low 3.4 - 5.0 g/dL [facility] ALP [Catalytic activity/Vol] 212 U/L High 33 - 120 U/L [facility] ALT With P-5'-P [Catalytic activity/Vol] 46 U/L 10 - 52 U/L [facility] Comment on above: Patients treated wit h Sulfasalazine may generate falsely decreased results for ALT. AST With P-5'-P [Catalytic activity/Vol] 49 U/L High 9 - 39 U/L [facility] Bilirubin [Mass/Vol] 1.8 mg/dL High 0.0 - 1 .2 mg/dL [facility] Bilirubin.direct [Mass/Vol] 0.7 mg/dL High 0.0 - 0.3 mg/dL [facility] Protein [Mass/Vol] 5.7 g/dL Low 6.4 - 8.2 g/dL [facility] Albumin BCP dye [Mass/Vol] 2.4 g/dL Low 3.4-5.0 [facility] Comment on above: Performed By: #### 2 4325-3 #### MIREYA SHAH ([id number]) [facility] ([facility]) [address] [place] [address] 80835 ALP [Catalytic activity/Vol] 212 U/L High 33-120 [facility] Comment on above: Performed By: #### 2 4325-3 #### MIREYA SHAH ([id number]) [facility] ([facility]) [address] [place] [address] 60787 ALT With P-5'-P [Catalytic activity/Vol] 46 U/L Normal 10-52 [facility] Comment on above: Result Comment: Argenis ents treated with Sulfasalazine may generate falsely decreased results for ALT. Performed By: #### 2 4325-3 #### MIREYA SHAH ([id number]) [facility] ([facility]) [facility] [place] [address] AST With P-5'-P [Catalytic activity/Vol] 49 U/L High 9-39 [facility] Comment on above: Performed By: #### 2 4325-3 #### MIREYA SHAH ([id number]) [facility] ([facility]) [address] [place] [address] 93774 Bilirubin [Mass/Vol] 1.8 mg/dL High 0.0-1.2 [facility] Comment on above: Performed By: #### 2 4325-3 #### MIREYA SHAH ([id number]) [facility] ([facility]) [address] [place] [address] 12345 Bilirubin.direct [Mass/Vol] 0.7 mg/dL High 0.0-0.3 [facility] Comment on above: Performed By: #### 2 4325-3 #### MIREYA SHAH ([id number]) [facility] ([facility]) [address] [place] [address] 28816 Protein [Mass/Vol] 5.7 g/dL Low 6.4-8.2 [facility] Comment on above: Performed By: #### 2 4325-3 #### MIREYA SHAH ([id number]) [facility] ([facility]) [address] [place] [address] 79186 Lactateon 10-04-2024 Lactate [Moles/Vol] 2 mmol/L 0.4 - 2. 0 mmol/L [facility] Lactate [Moles/Vol] 2.0 mmol/L Normal 0.4-2.0 [facility] Comment on above: Order Comment: Venip uncture immediately after or during the administration of Metamizole may lead to falsely low results. Testing should be performed immediately prior to Metamizole dosing. Performed By: #### 2 524-7 #### MIREYA SHAH ([id number]) [facility] ([facility]) [address] [place] [address] 09977 Lactate [Moles/Vol]on 2024 Interpretation and review of laboratory results Normal [facility] Venipuncture immedia tely after or during the administration of Metamizole may lead to falsely low results. Testing should be performed immediately prior to Metamizole dosing. [facility] Lactate dehydrogenaseon 03-0 LDH Lactate to pyruvate reaction (Body fld) [Catalytic activity/Vol] <25 Normal Not established. [facility] Comment on above: Order Comment: Venip uncture immediately after or during the administration of Metamizole may lead to falsely low results. Testing should be performed immediately prior to Metamizole dosing. Performed By: #### 2 524-7 #### GOMES ALYSSA ([id number]) [facility] ([facility]) [address] [place] [address] Lipaseon 10-04-2024 Lipase [Catalytic activity/Vol] 56 U/L 9 - 82 U/L [facility] Lipase [Catalytic activity/V ol]on 10-04-2024 Interpretation and review of laboratory results Normal [facility] Venipuncture immedia tely after or during the administration of Metamizole may lead to falsely low results. Testing should be performed immediately prior to Metamizole dosing. [facility] No Panel Informationon 10-04 Interpretation and review of laboratory results Abnormal [facility] Interpretation and review of laboratory results Abnormal [facility] Non-informatics scientist cytology studyon Non-gynecological cytology method study Pathology report.total SEE COMMENT Non-gynecologic Cytology Case: [id number] Authorizing Provider: Joey Huang DO Collected: 10/04/2024 1714 Ordering Location: [facility] Received: 10/05/2024 2[address] [place] [facility] Pathologist: Jarvis Guzman MD Specimen: ASCITIC FLUID Path report.final diagnosis SEE COMMENT A. ASCITIC FLUID: - NO MALIGNANT CELLS IDENTIFIED. Note: This case has been evaluated using a concentrated (ThinPrep) preparation. Laboratory comment SEE COMMENT Slide(s) initially screened by ABEL Castro at [facility] [address] [place] [phone] By the signature on this report, the [...] Block) A1-1 Pap Stain NGYN ThinPrep Normal [facility] PT Coag (PPP) [Time]on 10-04 INR Coag (PPP) [Relative time] 2.1 {INR} High 0.9 - 1.1 [facility] INR Coag (PPP) [Relative time] 2.1 High 0.9-1.1 [facility] Comment on above: Performed By: #### 5 902-2 #### GOMES ALYSSA ([id number]) [facility] ([facility]) [address] [place] [address] Paracentesison 10-04-2024 Joey Huang DO 10/04/2024 5:18 PM Paracentesis Date/Time: 10/04/2024 5:17 PM Performed by: Joey Huang DO Authorized by: Joey Huang DO Consent: Consent obtained: Written Consent given by: Patient Risks, benefits, and alternatives were discussed: yes Risks discussed: Bleeding, bowel perforation and infection Alternatives discussed: No treatment [place] protocol: Procedure explained and questions answered to [...] Adhesive bandage Post-procedure details: Procedure completion: [place] [facility] Work Phone: [facility] Work Phone: Proteinon 10-04-2024 Protein (Body fld) [Mass/Vol] g/dL Normal Not established [facility] Comment on above: Order Comment: Venip uncture immediately after or during the administration of Metamizole may lead to falsely low results. Testing should be performed immediately prior to Metamizole dosing. Performed By: #### 2 524-7 #### MIREYA SHAH ([id number]) [facility] ([facility]) [facility] [place] [phone] Protime-INRon 10-04-2024 PT Coag (PPP) [Time] 23.6 s High [facility] Triacylglycerol lipaseon Lipase [Catalytic activity/Vol] 56 U/L Normal 9-82 [facility] Comment on above: Order Comment: Venip uncture immediately after or during the administration of Metamizole may lead to falsely low results. Testing should be performed immediately prior to Metamizole dosing. Performed By: #### 3 040-3 #### MIREYA SHAH ([id number]) [facility] ([facility]) [address] [place], [place] [phone] aPTT Coag (PPP) [Time]on The APTT is no longe r used for monitoring Unfractionated Heparin Therapy. For monitoring Heparin Therapy, use the Heparin Assay. [facility] pHon 10-04-2024 pH (Body fld) 7.82 Normal See Below [facility] Comment on above: Order Comment: Venip uncture immediately after or during the administration of Metamizole may lead to falsely low results. Testing should be performed immediately prior to Metamizole dosing. Performed By: #### 2 524-7 #### MIREYA SHAH ([id number]) [facility] ([facility]) [address] [place], [place] [phone] Glucose measurement at [facility] deOrdered By: Boone Izquierdo on 09-14-2024 Bedside Glucose (Misc Panel) 134 mg/dL High 74-106 [facility] Comment on above: MANAGEMENT OF PATIEN T CARE PER NURSING PROTOCOL Glucose [Mass/Vol] 134 mg/dL High 74-106 [facility] Glucose measurement at bedside 134 mg/dL High 74-106 [facility] Blood urea nitrogen (BUN)/cr eatinine ratioOrdered By: Jae Ash on 09-12-2024 Urea nitrogen/Creatinine [Mass ratio] 7.6 mg/mg Low 10-20 [facility] Blood urea nitrogen (BUN)/creatinine ratio 7.6 RATIO Low 10-20 [facility] Calcium [Mass/Vol]Ordered By : Jae Ash on 09-12-2024 Serum or plasma calcium measurement (mass/volume) 8.1 mg/dL Low 8.5-10.1 [facility] Carbon dioxide measurementOr dered By: Jae Ash on 09-12-2024 CO2 [Moles/Vol] 20.0 mmol/L Low 21.0-32.0 [facility] Carbon dioxide measurement 20.0 mmol/L Low 21.0-32.0 [facility] Chloride measurementOrdered By: Jae Ash on 09-12-2024 Chloride [Moles/Vol] 109 mmol/L High 98-107 [facility] Chloride measurement 109 mmol/L High 98-107 [facility] Creatinine [Mass/Vol]Ordered By: Jae Ash on 09-12-2024 Serum or plasma creatinine measurement (mass/volume) 0.92 mg/dL 0.70-1.30 [facility] Erythrocyte distribution wid th (RBC) [Ratio]Ordered By: Jae Ash on 09-12-2024 Erythrocyte distribution width ratio 19.7 % High 11.6-14.6 [facility] Erythrocyte distribution width standard deviation 63.5 fl High 35.1-43.9 [facility] Erythrocyte distribution wid th ratioOrdered By: Jae Ash on 09-12-2024 Erythrocyte distribution width (RBC) [Ratio] 19.7 % High 11.6-14.6 [facility] Erythrocyte distribution wid th standard deviationOrdered By: Jae Ash on 09-12-2024 Erythrocyte distribution width (RBC) [Entitic vol] 63.5 fL High 35.1-43.9 [facility] Erythrocyte distribution width (RBC) [Ratio] 63.5 fl High 35.1-43.9 [facility] Estimated glomerular filtrat ion rate (GFR) AmericanOrdered By: Jae Ash on 09-12-2024 Estimated GFR (MDRD) Amer 108 mL/min >60 [facility] Comment on above: GFR Calc Estimated glomerular filtration rate (GFR) 108 mL/min >60 [facility] Estimation of creatinine [place] aranceOrdered By: Jae Ash on 09-12-2024 Estimated Creatinine Clearance Calc 71.80 ml/min [facility] Estimation of creatinine clearance 71.80 ml/min [facility] Glomerular filtration rate ( GFR) estimationOrdered By: Jae Ash on 09-12-2024 Estimated GFR (MDRD) Non-Af Amer 89 mL/min >60 [facility] Comment on above: Non- GFR Calc GFR/1.73 sq M.predicted among non-blacks MDRD (S/P/Bld) [Vol rate/Area] 89 mL/min/{1.73_m2} >60 [facility] Glomerular filtration rate (GFR) estimation 89 mL/min >60 [facility] Glucose measurementOrdered B y: Jae Ash on 09-12-2024 Glucose [Mass/Vol] 149 mg/dL High 74-[address] [facility] Comment on above: Fasting Glucose resu lt greater than or equal to 126 mg/dL suggests DIABETES MELLITUS per A.D.A. criteria. Glucose measurement 149 mg/dL High 74-106 [facility] Hematocrit Auto (Bld) [Volum e fraction]Ordered By: Jae Ash on 09-12-2024 Hematocrit (Bld) [Volume fraction] 25.8 % Low 40-54 [facility] Automated blood hematocrit (percentage) 25.8 % Low 40-54 [facility] Hemoglobin measurementOrdere d By: Jae Ash on 09-12-2024 Hemoglobin (Bld) [Mass/Vol] 8.1 g/dL Low 13.0-16.5 [facility] Hemoglobin measurement 8.1 g/dL Low 13.0-16.5 [facility] MCV (RBC) [Entitic vol]Order ed By: Jae Ash on 09-12-2024 MCV (mean corpuscular volume) determination 90.5 fL 80-94 [facility] MCV (mean corpuscular volume ) determinationOrdered By: Jae Ash on 09-12-2024 MCV (RBC) [Entitic vol] 90.5 fL 80-94 [place] Mean corpuscular hemoglobin (MCH) determinationOrdered By: Jae Ash on 09-12-2024 MCH (RBC) [Entitic mass] 28.4 pg 27.0-32.0 [facility] Mean corpuscular hemoglobin (MCH) determination 28.4 pg 27.0-32.0 [facility] Mean corpuscular hemoglobin concentration (MCHC) determinationOrdered By: Jae Ash on 09-12-2024 MCHC (RBC) [Mass/Vol] 31.4 g/dL Low 32-36 [facility] Comment on above: Delta: 33.1 on 09/10 Mean corpuscular hemoglobin concentration (MCHC) determination 31.4 g/dL Low 32-36 [facility] Mean platelet volume determi nationOrdered By: Jae Ash on 09-12-2024 Platelet mean volume (Bld) [Entitic vol] 11.9 fL 6.2-12.0 [facility] Mean platelet volume determination 11.9 fl 6.2-12.0 [facility] Platelet countOrdered By: Sky Ash on 09-12-2024 Platelets (Bld) [#/Vol] 115 10*3/uL Low 150-450 [facility] Platelet count 115 K/mm3 Low 150-450 [facility] Potassium measurementOrdered By: Jae Ash on 09-12-2024 Potassium [Moles/Vol] 3.4 mmol/L Low 3.5-5.1 [facility] Potassium measurement 3.4 mmol/L Low 3.5-5.1 [facility] RBC Auto (Bld) [#/Vol]Ordere d By: Jae Ash on 09-12-2024 RBC (Bld) [#/Vol] 2.85 10*6/uL Low 4.6-6.2 [facility] Automated blood erythrocyte count 2.85 M/mm3 Low 4.6-6.2 [facility] Serum anion gap measurementO rdered By: Jae Ash on 09-12-2024 Anion gap [Moles/Vol] 7 mmol/L 5-15 [facility] Serum anion gap measurement 7 5-15 [facility] Serum or plasma calcium roosevelt urement (mass/volume)Ordered By: Jae Ash on 09-12-2024 Calcium [Mass/Vol] 8.1 mg/dL Low 8.5-10.[address] [facility] Serum or plasma creatinine m easurement (mass/volume)Ordered By: Jae Ash on 09-12-2024 Creatinine [Mass/Vol] 0.92 mg/dL 0.70-1.30 [facility] Comment on above: The validity of the calculated GFR & GFRAA in patients over 70 years has not been determined. Clinical correlation is essential. Serum or plasma urea nitroge n measurement (mass/volume)Ordered By: Jae Ash on 09-12-2024 Urea nitrogen [Mass/Vol] 7 mg/dL 02-18 [facility] Sodium levelOrdered By: Pasha Ash on 09-12-2024 Sodium [Moles/Vol] 136 mmol/L 136-[address] [facility] Sodium level 136 mmol/L 136-145 [facility] Urea nitrogen [Mass/Vol]Orde red By: Jae Ash on 09-12-2024 Serum or plasma urea nitrogen measurement (mass/volume) 7 mg/dL 02-18 [facility] White blood cell (WBC) count Ordered By: Jae Ash on 09-12-2024 WBC (Bld) [#/Vol] 7.4 10*3/uL 4.4-11.[address] [facility] White blood cell (WBC) count 7.4 K/mm3 4.4-11.0 [facility] Serum or plasma trough vanco mycin levelOrdered By: Thai Thurston on 09-10-2024 Vancomycin trough [Mass/Vol] 15.7 ug/mL High 5.0-15.0 [facility] Vancomycin trough [Mass/Vol] Ordered By: Thai Thurston on 09-10-2024 Vancomycin Level Trough 15.7 ug/mL High 5.0-15.0 [place] Comment on above: VANCOMYCIN STANDARED DRUG THERAPY TROUGH LEVEL: 5.0 - 15.0 mg/L VANCOMYCIN HIGH INTENSITY THERAPY TROUGH LEVEL: 15.0 - 20.0 mg/L High Intensity therapy recommended for serious lifethreatening infections include:- Ifuhvcjddk-Nnpfxngajgap-Mpeqouuyz (Ventilator/Healtcare Associated)-Sepsis PLEASE CONTACT PHARMACY SERVICES (#[id number]) FOR INTERPRETATIONOF RESULTS. Serum or plasma trough vancomycin level 15.7 ug/mL High 5.0-15.0 [facility] Serum or plasma vancomycin l evel (mass/volume)Ordered By: Maria Guadalupe Shore on 09-08-2024 Vancomycin [Mass/Vol] 16.5 ug/mL High 0.0-15.0 [facility] Vancomycin [Mass/Vol]Ordered By: Maria Guadalupe Shore on 09-08-2024 Random Vancomycin Level 16.5 ug/mL High 0.0-15.0 [place] Comment on above: VANCOMYCIN STANDARD DRUG THERAPY: CRITICAL VALUE IS > 15.0 mg/L VANCOMYCIN HIGH INTENSITY THERAPY: CRITICAL VALUE IS > 20.0 mg/L PLEASE CONTACT PHARMACY SERVICES (#[id number]) FOR INTERPRETATIONOF RESULTS. THIS RESULT DOES NOT REPRESENT A PEAK OR TROUGHLEVEL FOR THIS DRUG. Serum or plasma vancomycin level (mass/volume) 16.5 ug/mL High 0.0-15.0 [facility] Absolute lymphocyte countOrd ered By: Anurag Irene on 09-07-2024 Lymphocytes Auto (Unsp spec) [#/Vol] 0.95 10*3/uL 0.83-4.51 [facility] Absolute neutrophil countOrd ered By: Anurag Irene on 09-07-2024 Neutrophils (Bld) [#/Vol] 13.3 10*3/uL High 2.0-7.7 [facility] Absolute neutrophil count 13.3 X10^3/uL High 2.0-7.7 [facility] Automated lymphocyte count a s percentage of total leukocytesOrdered By: Anurag Irene on 09-07-2024 Lymphocytes/100 WBC Auto (Unsp spec) 5.8 % Low 19-41 [facility] Basophil percentageOrdered B y: Anurag Irene on 09-07-2024 Basophils/100 WBC (Bld) 0.4 % 0-1 [place] Basophil percentage 0.4 % 0-1 [facility] Eosinophil percentageOrdered By: Anurag Irene on 09-07-2024 Eosinophils/100 WBC (Bld) 3.0 % 0-5 [facility] Eosinophil percentage 3.0 % 0-5 [facility] Immature granulocytes/100 WB C Auto (Bld)Ordered By: Anurag Irene on 09-07-2024 Immature granulocytes/100 WBC (Bld) 1.400 % High 0.0-0.9 [facility] Comment on above: IG% - Immature Granu locytes (promyelocytes, myelocytes and metamyelocytes) > 1% indicates that a LEFT SHIFT is Present. Automated immature granulocyte percentage 1.400 % High 0.0-0.9 [facility] Lymphocytes Auto (Unsp spec) [#/Vol]Ordered By: Anurag Irene on 09-07-2024 Lymphocytes (Bld) [#/Vol] 0.95 10*3/uL 0.83-4.51 [facility] Absolute lymphocyte count 0.95 X10^3/uL 0.83-4.51 [facility] Lymphocytes/100 WBC Auto (Un sp spec)Ordered By: Anurag Irene on 09-07-2024 Lymphocytes/100 WBC (Bld) 5.8 % Low 19-41 [facility] Automated lymphocyte count as percentage of total leukocytes 5.8 % Low 19-41 [facility] Monocyte percentageOrdered B y: Anurag Irene on 09-07-2024 Monocytes/100 WBC (Bld) 8.6 % 0-10 [place] Monocyte percentage 8.6 % 0-10 [facility] Neutrophil percentageOrdered By: Anurag Irene on 09-07-2024 Neutrophils/100 WBC (Bld) 80.8 % High 47-70 [facility] Neutrophil percentage 80.8 % High 47-70 [facility] Nucleated red blood cell per centageOrdered By: Anurag Irene on 09-07-2024 Nucleated RBC/100 WBC (Bld) [Ratio] 0 % 0-5 [facility] Nucleated red blood cell percentage 0 % 0-5 [facility] Blood cultureOrdered By: [place] Irene on 09-06-2024 Bacteria identified Cx Nom (Bld) No growth in 5 days. [facility] Blood culture No growth in 5 days. [facility] Blood cultureOrdered By: Shi Joiner on 09-05-2024 Bacteria identified Cx Nom (Bld) Staphylococcus epidermidis Abnormal [facility] Blood culture Staphylococcus epidermidis Abnormal [facility] Folic acid measurementOrdere d By: Hill Wright on 09-05-2024 Folate 30.10 ng/mL 3.1-55.4 [facility] Folic acid measurement 30.10 ng/mL 3.1-55.4 [facility] Lactic acid measurementOrder ed By: Hill Wright on 09-05-2024 Lactate [Moles/Vol] 2.3 mmol/L High 0.4-2.0 [facility] Comment on above: Critical Result(s) C alled at: 08:26:40 09/05/2024 by: Lucy Ramirez to [facility]. Results read back by same. Lactic acid measurement 2.3 mmol/L High 0.4-2.0 [place] Serum ethanol measurementOrd ered By: Hill Wright on 09-05-2024 Ethyl Alcohol Level 4.0 mg/dL [facility] Comment on above: The serum:whole bloo d ethanol ratio is approximately 1.14and varies slightly with hematocrit. Medical Alcohol reference interval and critical value innon-tolerant individuals; 50 - 100 Impairment 100 Intoxication 100 - 250 Severe Poisoning 250 - 400 Deep/possible fatal coma Serum ethanol measurement 4.0 mg/dL [facility] Vitamin B12 measurementOrder ed By: Hill Wright on 09-05-2024 Vitamin B12 Level > 2000 pg/mL High 211-911 [facility] Vitamin B12 measurement > 2000 pg/mL High 211-911 [facility] ALP [Catalytic activity/Vol] Ordered By: Rachel Joiner on 09-04-2024 Serum or plasma alkaline phosphatase measurement 269 U/L High 45-117 [facility] ALT [Catalytic activity/Vol] Ordered By: Rachel Joiner on 09-04-2024 Serum or plasma alanine aminotransferase (ALT) measurement 79 U/L High 16-61 [facility] Albumin [Mass/Vol]Ordered By : Rachel Joiner on 09-04-2024 Serum or plasma albumin measurement (mass/volume) 2.0 g/dL Low 3.2-5.0 [facility] Bilirubin Test strip Ql (U)O rdered By: Rachel Joiner on 09-04-2024 Bilirubin Ql (U) 1 mg/dL High Negative [facility] Comment on above: COLOR OF URINE MAY A FFECT DIPSTICK RESULTS. Bilirubin directOrdered By: Rachel Joiner on 09-04-2024 Bilirubin.direct [Mass/Vol] 1.80 mg/dL High 0.00-0.30 [facility] Bilirubin, totalOrdered By: Rachel Joiner on 09-04-2024 Bilirubin [Mass/Vol] 3.10 mg/dL High 0.20-1.00 [facility] Comment on above: For patients on eltr ombopag therapy, use of [place] TBIL is not recommended. Bilirubin, total 3.10 mg/dL High 0.20-1.00 [facility] Bilirubin.direct [Mass/Vol]O rdered By: Rachel Joiner on 09-04-2024 Bilirubin direct 1.80 mg/dL High 0.00-0.30 [facility] Blood cultureOrdered By: Shi Joiner on 09-04-2024 Bacteria identified Cx Nom (Bld) [facility] Clarity (U)Ordered By: Kaz Joiner on 09-04-2024 Urine clarity Clear Clear [facility] Color (U)Ordered By: Rachel Joiner on 09-04-2024 Urine color determination Yellow Yellow [facility] Epithelial cells.squamous LM Ql (Urine sed)Ordered By: Rachel Joiner on 09-04-2024 Epithelial cells.squamous LM.HPF (Urine sed) [#/Area] 0 /[HPF] 0-5 [facility] Glucose Ql (U)Ordered By: Brendan Joiner on 09-04-2024 Urine Glucose (UA) Normal mg/dl Normal [facility] Urine glucose detection Normal mg/dl Normal [facility] HbA1c (Bld) [Mass fraction]O rdered By: Hill Wright on 09-04-2024 Hemoglobin A1c percentage 7.3 % High 3.8-5.6 [facility] Hemoglobin A1c percentageOrd ered By: Hill Wright on 09-04-2024 HbA1c (Bld) [Mass fraction] 7.3 % High 3.8-5.6 [facility] Comment on above: Normal < 5.7 % Predi abetic 5.7 - 6.4 % Diabetic >or= 6.5 % Please note range changes. Ketones Test strip Ql (U)Ord ered By: Rachel Joiner on 09-04-2024 Ketones Ql (U) Negative Negative [facility] Laboratory - Chemistry and C hemistry - challengeOrdered By: Rachel Joiner on 09-04-2024 AST [Catalytic activity/Vol] 156 U/L High 15-37 [facility] Leukocyte esterase Test stri p Ql (U)Ordered By: Rachel Joiner on 09-04-2024 Urine leukocyte esterase detection by dipstick 100 /ul High Negative [facility] Methadone, urineOrdered By: Rachel Joiner on 09-04-2024 Urine Methadone Screen Negative < 300 ng/mL [place] Microorganism identified Cx Nom (Unsp spec)Ordered By: Rachel Joiner on 09-04-2024 Bacteria Detection (PCR) Staphylococcus epidermidis Abnormal [facility] Bacteria Detection (PCR) mecA Resistance Marker Abnormal [facility] Organism identification mecA Resistance Marker Abnormal [facility] Microscopic analysis of urin e for red blood cells (RBC)Ordered By: Rachel Joiner on 09-04-2024 Urine RBC 10-25 SEEN /hpf 0-5 [facility] Microscopic analysis of urine for red blood cells (RBC) 10-25 SEEN /hpf 0-5 [facility] Mucus LM Ql (Urine sed)Order ed By: Rachel Joiner on 09-04-2024 Mucus Ql (Urine sed) 0 SEEN /hpf [facility] Nitrite Test strip Ql (U)Ord ered By: Rachel Joiner on 09-04-2024 Nitrite Ql (U) Negative Negative [facility] No Panel InformationOrdered By: Rachel Joiner on 09-04-2024 156 U/L High 15-37 [facility] Urine Drug Screen Comment [facility] Comment on above: CONFIRMATORY TESTING FOR ALL [...] MUST BE ORDERED SEPARATELY. USE TESTMNEMONIC: UTCA [facility] Organism identificationOrder ed By: Rachel Joiner on 09-04-2024 Microorganism identified Cx Nom (Unsp spec) Staphylococcus epidermidis Abnormal [facility] Microorganism identified Cx Nom (Unsp spec) mecA Resistance Marker Abnormal [facility] Protein Test strip Ql (U)Ord ered By: Rachel Joiner on 09-04-2024 Protein Ql (U) 30 mg/dl High Negative [facility] Urine protein assay by test strip, semi-quantitative 30 mg/dl High Negative [facility] Quantitative urine opiates m easurementOrdered By: Rachel Joiner on 09-04-2024 Opiates Ql (U) Positive High < 300 ng/mL [facility] Quantitative urine opiates measurement Positive High < 300 ng/mL [facility] Screening prostate specific antigen (PSA) measurementOrdered By: Hill Wright on 09-04-2024 Prostate Specific Antigen Screen 1.41 ng/mL 0.00-4.00 [facility] Comment on above: This test was perfor med using the TPSA assay method for Dexmo chemistry system. Values obtained with differentassay methods cannot be used interchangably.When changing PSA assays in the course of monitoring apatient, additional sequential testing should be carriedout to confirm baseline values. Screening prostate specific antigen (PSA) measurement 1.41 ng/mL 0.00-4.00 [facility] Serum globulin measurementOr dered By: Rachel Joiner on 09-04-2024 Globulin (S) [Mass/Vol] 4.1 g/dL 2.2-4.2 [facility] Serum globulin measurement 4.1 g/dL 2.2-4.2 [facility] Serum or plasma alanine thomas otransferase (ALT) measurementOrdered By: Rachel Joiner on 09-04-2024 ALT [Catalytic activity/Vol] 79 U/L High 16-61 [facility] Serum or plasma albumin roosevelt urement (mass/volume)Ordered By: Rachel Joiner on 09-04-2024 Albumin [Mass/Vol] 2.0 g/dL Low 3.2-5.[address] [facility] Serum or plasma alkaline kendrick sphatase measurementOrdered By: Rachel Joiner on 09-04-2024 ALP [Catalytic activity/Vol] 269 U/L High 45-117 [facility] Serum or plasma thyroid stim ulating hormone (TSH) measurement (units/volume)Ordered By: Hill Wright on 09-04-2024 TSH Qn 0.826 uIU/mL 0.358-3.740 [facility] Specific gravity (U) [Rel de nsity]Ordered By: Rachel Joiner on 09-04-2024 Urine specific gravity measurement 1.020 1.002-1.030 [facility] Squamous epithelial cells de tection in urine sediment by light microscopyOrdered By: Rachel Joiner on 09-04-2024 Epithelial cells.squamous LM Ql (Urine sed) 0 SEEN /hpf 0-5 [facility] Squamous epithelial cells detection in urine sediment by light microscopy 0 SEEN /hpf [facility] TSH QnOrdered By: Hill patino on 09-04-2024 Thyroid Stimulating Hormone (TSH) 0.826 uIU/mL 0.358-3.740 [facility] Serum or plasma thyroid stimulating hormone (TSH) measurement (units/volume) 0.826 uIU/mL 0.358-3.740 [facility] Total proteinOrdered By: Shi Joiner on 09-04-2024 Protein [Mass/Vol] 6.1 g/dL Low 6.4-8.[address] [facility] Total protein 6.1 g/dL Low 6.4-8.2 [facility] Urine amphetamine measuremen tOrdered By: Rachel Joiner on 09-04-2024 Amphetamines Ql (U) Negative <1000 ng/mL [facility] Urine barbiturates measureme ntOrdered By: Rachel Joiner on 09-04-2024 Urine Barbiturates Screen Negative < 200 ng/mL [facility] Urine benzodiazepine levelOr dered By: Rachel Joiner on 09-04-2024 Benzodiazepines Ql (U) Negative < 200 ng/mL [facility] Urine blood detectionOrdered By: Rachel Joiner on 09-04-2024 Urine Occult Blood 150 /ul High Negative [facility] Urine blood detection 150 /ul High Negative [facility] Urine clarityOrdered By: Shi Joiner on 09-04-2024 Clarity (U) Clear Clear [facility] Urine cocaine levelOrdered B y: Rachel Joiner on 09-04-2024 Cocaine Ql (U) Negative < 300 ng/mL [facility] Urine color determinationOrd ered By: Rachel Joiner on 09-04-2024 Color (U) Yellow Yellow [facility] Urine cultureOrdered By: Hugo Wright on 09-04-2024 Bacteria identified Cx Nom (U) Staphylococcus epidermidis Abnormal [facility] Urine culture Staphylococcus epidermidis Abnormal [facility] Urine [id number] abinol (THC) measurementOrdered By: Rachel Joiner on 09-04-2024 Cannabinoids Screen Ql (U) Negative < 50 ng/mL [facility] Urine glucose detectionOrder ed By: Rachel Joiner on 09-04-2024 Glucose Ql (U) Normal mg/dl Normal [facility] Urine ketones detection by t est stripOrdered By: Rachel Joiner on 09-04-2024 Urine ketones detection by test strip Negative < 50 ng/mL [facility] Urine leukocyte esterase det ection by dipstickOrdered By: Rachel Joiner on 09-04-2024 Leukocyte esterase Test strip Ql (U) 100 /ul High Negative [facility] Urine methylenedioxymethamph etamine (MDMA) measurementOrdered By: Rachel Joiner on 09-04-2024 MDMA (Ecstasy) Screen Negative < 500 ng/mL [facility] Urine pHOrdered By: Rachel silva on 09-04-2024 pH (U) 6.0 [pH] 5.0 - 8.0 [facility] Urine phencyclidine (PCP) de tectionOrdered By: Rachel Joiner on 09-04-2024 Phencyclidine Ql (U) Negative < 25 ng/mL [facility] Urine sediment bacteria coun t by microscopy (number/high power field)Ordered By: Rachel Joiner on 09-04-2024 Bacteria LM.HPF (Urine sed) [#/Area] 0 /[HPF] None Seen [facility] Urine specific gravity measu rementOrdered By: Rachel Joiner on 09-04-2024 Specific gravity (U) [Rel density] 1.020 1.002-1.030 [facility] Urine total bilirubin detect ion by test stripOrdered By: Rachel Joiner on 09-04-2024 Urine total bilirubin detection by test strip 1 mg/dL High Normal [facility] Urine urobilinogen measureme ntOrdered By: Rachel Joiner on 09-04-2024 Urobilinogen Ql (U) 1 mg/dl High Normal [facility] Urobilinogen Ql (U)Ordered B y: Rachel Joiner on 09-04-2024 Urobilinogen (U) [Mass/Vol] 1 mg/dL High Normal [facility] Venous blood ammonia measure mentOrdered By: Rachel Joiner on 09-04-2024 Ammonia (P) [Moles/Vol] 26.0 umol/L [facility] Venous blood ammonia measurement 26.0 umol/L [facility] White blood cell countOrdere d By: Rachel Joiner on 09-04-2024 Urine WBC 5-10 SEEN /hpf 0-5 [facility] Comment on above: Previous reported re sult: 0 SEEN /hpfEdited by: DANIEL on 09/04/24:2337 AMENDED REPORT 09/04/24 2337 WBC previously reported as: 0 SEEN /hpf White blood cell count 5-10 SEEN /hpf 0-5 [facility] White blood cell count 5-10 SEEN /hpf 0-5 [facility] pH (U)Ordered By: Rachel lambert on 09-04-2024 Urine pH 6.0 5.0 - 8.0 [facility] Absolute lymphocyte countOrd ered By: Bola Meraz on 09-02-2024 Lymphocytes Auto (Unsp spec) [#/Vol] 1.04 10*3/uL 0.83-4.51 [facility] Absolute neutrophil countOrd ered By: Bola Meraz on 09-02-2024 Neutrophils (Bld) [#/Vol] 14.0 10*3/uL High 2.0-7.7 [facility] [facility] Absolute neutrophil count 14.0 X10^3/uL High 2.0-7.7 [facility] Automated lymphocyte count a s percentage of total leukocytesOrdered By: Bola Meraz on 09-02-2024 Lymphocytes/100 WBC Auto (Unsp spec) 6.3 % Low 19-41 [facility] Basophil percentageOrdered B y: Bola Meraz on 09-02-2024 Basophils/100 WBC (Bld) 0.4 % 0-1 [place] Basophil percentage 0.4 % 0-1 [facility] Blood urea nitrogen (BUN)/cr eatinine ratioOrdered By: Bola Meraz on 09-02-2024 Urea nitrogen/Creatinine [Mass ratio] 16.9 mg/mg 10-20 [facility] Blood urea nitrogen (BUN)/creatinine ratio 16.9 RATIO 10-20 [facility] Calcium [Mass/Vol]Ordered By : Bola Meraz on 09-02-2024 Serum or plasma calcium measurement (mass/volume) 8.9 mg/dL 8.5-10.1 [facility] Carbon dioxide measurementOr dered By: Bola Meraz on 09-02-2024 CO2 [Moles/Vol] 19.0 mmol/L Low 21.0-32.0 [facility] Carbon dioxide measurement 19.0 mmol/L Low 21.0-32.0 [facility] Chloride measurementOrdered By: Bola Meraz on 09-02-2024 Chloride [Moles/Vol] 107 mmol/L 98-107 [facility] Chloride measurement 107 mmol/L 98-107 [facility] Creatinine [Mass/Vol]Ordered By: Bola Meraz on 09-02-2024 Serum or plasma creatinine measurement (mass/volume) 2.54 mg/dL High 0.70-1.30 [facility] Eosinophil percentageOrdered By: Bola Meraz on 09-02-2024 Eosinophils/100 WBC (Bld) 1.3 % 0-5 [facility] Eosinophil percentage 1.3 % 0-5 [facility] Erythrocyte distribution wid th (RBC) [Ratio]Ordered By: Bola Meraz on 09-02-2024 Erythrocyte distribution width ratio 15.7 % High 11.6-14.6 [facility] Erythrocyte distribution width standard deviation 47.0 fl High 35.1-43.9 [facility] Erythrocyte distribution wid th ratioOrdered By: Bola Meraz on 09-02-2024 Erythrocyte distribution width (RBC) [Ratio] 15.7 % High 11.6-14.6 [facility] Erythrocyte distribution wid th standard deviationOrdered By: Bola Meraz on 09-02-2024 Erythrocyte distribution width (RBC) [Entitic vol] 47.0 fL High 35.1-43.9 [facility] Erythrocyte distribution width (RBC) [Ratio] 47.0 fl High 35.1-43.9 [facility] Estimated glomerular filtrat ion rate (GFR) AmericanOrdered By: Bola Meraz on 09-02-2024 Estimated GFR (MDRD) Amer 34 mL/min Low >60 [facility] Comment on above: GFR Calc Estimated glomerular filtration rate (GFR) 34 mL/min Low >60 [facility] Estimation of creatinine carolina aranceOrdered By: oBla Meraz on 09-02-2024 Estimated Creatinine Clearance Calc 37.67 ml/min [facility] Estimation of creatinine clearance 37.67 ml/min [facility] Glomerular filtration rate ( GFR) estimationOrdered By: Bola Meraz on 09-02-2024 Estimated GFR (MDRD) Non-Af Amer 28 mL/min Low >60 [facility] Comment on above: Non- GFR Calc GFR/1.73 sq M.predicted among non-blacks MDRD (S/P/Bld) [Vol rate/Area] 28 mL/min/{1.73_m2} Low >60 [facility] Glomerular filtration rate (GFR) estimation 28 mL/min Low >60 [facility] Glucose measurementOrdered B y: Bola Meraz on 09-02-2024 Glucose [Mass/Vol] 187 mg/dL [address] [facility] Comment on above: Fasting Glucose resu lt greater than or equal to 126 mg/dL suggests DIABETES MELLITUS per A.D.A. criteria. Glucose measurement 187 mg/dL [address] [facility] Glucose measurement at bedsi deOrdered By: Rick Carlin on 09-02-2024 Bedside Glucose (Misc Panel) 168 mg/dL [address] Comment on above: MANAGEMENT OF PATIEN T CARE PER NURSING PROTOCOL Glucose [Mass/Vol] 168 mg/dL [address] [facility] Glucose measurement at bedside 168 mg/dL [address] [facility] Hematocrit Auto (Bld) [Volum e fraction]Ordered By: Bola Meraz on 09-02-2024 Hematocrit (Bld) [Volume fraction] 30.8 % Low 40-54 [facility] Automated blood hematocrit (percentage) 30.8 % Low 40-54 [facility] Hemoglobin measurementOrdere d By: Bola Meraz on 09-02-2024 Hemoglobin (Bld) [Mass/Vol] 10.7 g/dL Low 13.0-16.5 [facility] Hemoglobin measurement 10.7 g/dL Low 13.0-16.5 [facility] Immature granulocytes/100 WB C Auto (Bld)Ordered By: Bola Meraz on 09-02-2024 Immature granulocytes/100 WBC (Bld) 1.300 % High 0.0-0.9 [facility] Comment on above: IG% - Immature Granu locytes (promyelocytes, myelocytes and metamyelocytes) > 1% indicates that a LEFT SHIFT is Present. Automated immature granulocyte percentage 1.300 % High 0.0-0.9 [facility] Lymphocytes Auto (Unsp spec) [#/Vol]Ordered By: Bola Meraz on 09-02-2024 Lymphocytes (Bld) [#/Vol] 1.04 10*3/uL 0.83-4.51 [facility] Absolute lymphocyte count 1.04 X10^3/uL 0.83-4.51 [facility] Lymphocytes/100 WBC Auto (Un sp spec)Ordered By: Bola Meraz on 09-02-2024 Lymphocytes/100 WBC (Bld) 6.3 % Low 19-41 [facility] Automated lymphocyte count as percentage of total leukocytes 6.3 % Low 19-41 [facility] MCV (RBC) [Entitic vol]Order ed By: Bola Meraz on 09-02-2024 MCV (mean corpuscular volume) determination 83.7 fL 80-94 [facility] MCV (mean corpuscular volume ) determinationOrdered By: Bola Meraz on 09-02-2024 MCV (RBC) [Entitic vol] 83.7 fL 80-94 [facility] Mean corpuscular hemoglobin (MCH) determinationOrdered By: Bola Meraz on 09-02-2024 MCH (RBC) [Entitic mass] 29.1 pg 27.0-32.0 [facility] Mean corpuscular hemoglobin (MCH) determination 29.1 pg 27.0-32.0 [facility] Mean corpuscular hemoglobin concentration (MCHC) determinationOrdered By: Bola Meraz on 09-02-2024 MCHC (RBC) [Mass/Vol] 34.7 g/dL 32-36 [facility] Mean corpuscular hemoglobin concentration (MCHC) determination 34.7 g/dL -36 [facility] Mean platelet volume determi nationOrdered By: Bola Meraz on 09-02-2024 Platelet mean volume (Bld) [Entitic vol] 12.8 fL High 6.2-12.0 [facility] Mean platelet volume determination 12.8 fl High 6.2-12.0 [facility] Monocyte percentageOrdered B y: Bola Meraz on 09-02-2024 Monocytes/100 WBC (Bld) 6.0 % 0-10 [place] Monocyte percentage 6.0 % 0-10 [facility] Neutrophil percentageOrdered By: Bola Meraz on 09-02-2024 Neutrophils/100 WBC (Bld) 84.7 % High 47-70 [facility] Neutrophil percentage 84.7 % High 47-70 [facility] Nucleated red blood cell per centageOrdered By: Bola Meraz on 09-02-2024 Nucleated RBC/100 WBC (Bld) [Ratio] 0 % 0-5 [facility] Nucleated red blood cell percentage 0 % 0-5 [facility] Platelet countOrdered By: Oliver on 09-02-2024 Platelets (Bld) [#/Vol] 82 10*3/uL Low 150-450 [facility] Platelet count 82 K/mm3 Low 150-450 [facility] Potassium measurementOrdered By: Bola Meraz on 09-02-2024 Potassium [Moles/Vol] 4.0 mmol/L 3.5-5.1 [facility] Potassium measurement 4.0 mmol/L 3.5-5.1 [facility] RBC Auto (Bld) [#/Vol]Ordere d By: Bola Meraz on 09-02-2024 RBC (Bld) [#/Vol] 3.68 10*6/uL Low 4.6-6.2 [facility] Automated blood erythrocyte count 3.68 M/mm3 Low 4.6-6.2 [facility] Serum anion gap measurementO rdered By: Bola Meraz on 09-02-2024 Anion gap [Moles/Vol] 8 mmol/L 5-15 [facility] Serum anion gap measurement 8 5-15 [facility] Serum or plasma calcium roosevelt urement (mass/volume)Ordered By: Bola Meraz on 09-02-2024 Calcium [Mass/Vol] 8.9 mg/dL 8.5-10.[address] [facility] Serum or plasma creatinine m easurement (mass/volume)Ordered By: Bola Meraz on 09-02-2024 Creatinine [Mass/Vol] 2.54 mg/dL High 0.70-1.30 [facility] Comment on above: The validity of the calculated GFR & GFRAA in patients over 70 years has not been determined. Clinical correlation is essential. Serum or plasma urea nitroge n measurement (mass/volume)Ordered By: Bola Meraz on 09-02-2024 Urea nitrogen [Mass/Vol] 43 mg/dL High -18 [facility] Sodium levelOrdered By: Deanna Meraz on 09-02-2024 Sodium [Moles/Vol] 133 mmol/L Low 136-[address] [facility] Sodium level 133 mmol/L Low 136-145 [facility] Urea nitrogen [Mass/Vol]Orde red By: Bola Meraz on 09-02-2024 Serum or plasma urea nitrogen measurement (mass/volume) 43 mg/dL High -18 [facility] White blood cell (WBC) count Ordered By: Bola Meraz on 09-02-2024 WBC (Bld) [#/Vol] 16.5 10*3/uL High 4.4-11.0 [facility] White blood cell (WBC) count 16.5 K/mm3 High 4.4-11.0 [facility] ALP [Catalytic activity/Vol] Ordered By: Maria Guadalupe Shore on 08-30-2024 Serum or plasma alkaline phosphatase measurement 143 U/L High 45-117 [facility] ALT [Catalytic activity/Vol] Ordered By: Maria Guadalupe Shore on 08-30-2024 Serum or plasma alanine aminotransferase (ALT) measurement 19 U/L 16-61 [facility] Albumin [Mass/Vol]Ordered By : Maria Guadalupe Shore on 08-30-2024 Serum or plasma albumin measurement (mass/volume) 1.9 g/dL Low 3.2-5.0 [facility] Bilirubin directOrdered By: Maria Guadalupe Shore on 08-30-2024 Bilirubin.direct [Mass/Vol] 0.83 mg/dL High 0.00-0.30 [facility] Bilirubin, totalOrdered By: Maria Guadalupe Shore on 08-30-2024 Bilirubin [Mass/Vol] 1.30 mg/dL High 0.20-1.00 [facility] Comment on above: For patients on eltr ombopag therapy, use of [place] TBIL is not recommended. Bilirubin, total 1.30 mg/dL High 0.20-1.00 [facility] Bilirubin.direct [Mass/Vol]O rdered By: Maria Guadalupe Shore on 08-30-2024 Bilirubin direct 0.83 mg/dL High 0.00-0.30 [facility] Ferritin measurementOrdered By: Maria Guadalupe Shore on 08-30-2024 Ferritin [Mass/Vol] 85 ng/mL 388 [facility] Ferritin measurement 85 ng/mL 388 [facility] HbA1c (Bld) [Mass fraction]O rdered By: Maria Guadalupe Shore on 08-30-2024 Hemoglobin A1c percentage 7.9 % High 3.8-5.6 [facility] Hemoglobin A1c percentageOrd ered By: Maria Guadalupe Shore on 08-30-2024 HbA1c (Bld) [Mass fraction] 7.9 % High 3.8-5.6 [facility] Comment on above: Normal < 5.7 % Predi abetic 5.7 - 6.4 % Diabetic >or= 6.5 % Please note range changes. Iron (Unsp spec) [Mass/Mass] Ordered By: Maria Guadalupe Shore on 08-30-2024 Iron [Mass/Vol] 62 ug/dL Low 65-175 [facility] Iron measurement (mass/mass) 62 ug/dL Low 65-175 [facility] Iron measurement (mass/mass) Ordered By: Maria Guadalupe Shore on 08-30-2024 Iron (Unsp spec) [Mass/Mass] 62 ug/dL Low 65-175 [facility] Iron saturation [Mass fracti on]Ordered By: Maria Guadalupe Shore on 08-30-2024 Iron Saturation 33.9 % 15.0-55.0 [facility] Serum or plasma iron saturation measurement (mass fraction) 33.9 % 15.0-55.0 [facility] Laboratory - Chemistry and C hemistry - challengeOrdered By: Maria Guadalupe Shore on 08-30-2024 AST [Catalytic activity/Vol] 22 U/L 15-37 [facility] No Panel InformationOrdered By: Maria Guadalupe Shore on 08-30-2024 22 U/L 15-37 [facility] Serum globulin measurementOr dered By: Maria Guadalupe Shore on 08-30-2024 Globulin (S) [Mass/Vol] 3.4 g/dL 2.2-4.2 [facility] Serum globulin measurement 3.4 g/dL 2.2-4.2 [facility] Serum or plasma alanine thomas otransferase (ALT) measurementOrdered By: Maria Guadalupe Shore on 08-30-2024 ALT [Catalytic activity/Vol] 19 U/L 16-61 [facility] Serum or plasma albumin roosevelt urement (mass/volume)Ordered By: Maria Guadalupe Shore on 08-30-2024 Albumin [Mass/Vol] 1.9 g/dL Low 3.2-5.[address] [facility] Serum or plasma alkaline kendrick sphatase measurementOrdered By: Maria Guadalupe Shore on 08-30-2024 ALP [Catalytic activity/Vol] 143 U/L High 45-117 [facility] Serum or plasma iron saturat ion measurement (mass fraction)Ordered By: Maria Guadalupe Shore on 08-30-2024 Iron saturation [Mass fraction] 33.9 % 15.0-55.0 [facility] TIBCOrdered By: Maria Guadalupe Shore on 08-30-2024 Total Iron Binding Capacity 183 ug/dL Low 250-450 [facility] TIBC 183 ug/dL Low 250-450 [facility] Total proteinOrdered By: Aut davi Shore on 08-30-2024 Protein [Mass/Vol] 5.3 g/dL Low 6.4-8.[address] [facility] Total protein 5.3 g/dL Low 6.4-8.2 [facility] Venous blood ammonia measure mentOrdered By: Maria Guadalupe Shore on 08-30-2024 Ammonia (P) [Moles/Vol] 64.0 umol/L High 11-32 [facility] Venous blood ammonia measurement 64.0 umol/L High 11-32 [facility] Activated partial thrombopla stin time (aPTT) in platelet poor plasma by coagulation aOrdered By: Luis Carlos Anderson on 08-29-2024 aPTT Coag (PPP) [Time] 40.9 s High 24.1-36.2 [facility] Albumin to globulin ratioOrd ered By: Luis Carlos Anderson on 08-29-2024 Albumin/Globulin [Mass ratio] 0.4 {ratio} Low 0.9-2.4 [facility] Albumin to globulin ratio 0.4 RATIO Low 0.9-2.4 [facility] Bacteria LM.HPF (Urine sed) [#/Area]Ordered By: Luis Carlos Anderson on 08-29-2024 Urine Bacteria RARE /hpf None Seen [facility] Urine sediment bacteria count by microscopy (number/high power field) RARE /hpf None Seen [facility] Bilirubin Test strip Ql (U)O rdered By: Luis Carlos Anderson on 08-29-2024 Bilirubin Ql (U) 1 mg/dL High Negative [facility] Comment on above: COLOR OF URINE MAY A FFECT DIPSTICK RESULTS. Clarity (U)Ordered By: Juan Alberto Anderson on 08-29-2024 Urine clarity Clear Clear [facility] Color (U)Ordered By: Luis Carlos Anderson on 08-29-2024 Urine color determination Yellow Yellow [facility] Creatinine (U) [Mass/Vol]Ord ered By: White on 08-29-2024 Urine creatinine measurement (mass/volume) 173.00 mg/dL NO RANGE EST. [facility] Epithelial cells.squamous LM Ql (Urine sed)Ordered By: Luis Carlos Anderson on 08-29-2024 Epithelial cells.squamous LM.HPF (Urine sed) [#/Area] 0 /[HPF] 0-5 [facility] Squamous epithelial cells detection in urine sediment by light microscopy 0 SEEN /hpf 0-5 [facility] Glucose Ql (U)Ordered By: Yaya Anderson on 08-29-2024 Glucose (U) [Mass/Vol] 50 mg/dL High Normal [facility] Urine glucose detection 50 mg/dl High Normal [facility] International normalized rat io (INR) calculationOrdered By: Luis Carlos Anderson on 08-29-2024 INR Coag (Bld) [Relative time] 1.7 {INR} [facility] normalized ratio (INR) calculation 1.7 [facility] Ketones Test strip Ql (U)Ord ered By: Luis Carlos Anderson on 08-29-2024 Ketones Ql (U) Negative Negative [facility] Leukocyte esterase Test stri p Ql (U)Ordered By: Luis Carlos Anderson on 08-29-2024 Urine leukocyte esterase detection by dipstick 500 /ul High Negative [facility] Lipase measurementOrdered By : Luis Carlos Anderson on 08-29-2024 Lipase [Catalytic activity/Vol] 26 U/L 13-75 [facility] Comment on above: Please note:LIPASE r evised reference range effective 22. New Lipase methodology. Expected to produce lower values than the previous assay method. NEW Reference Range: 13 - 75 U/L Lipase measurement 26 U/L 13-[address] [facility] Magnesium measurementOrdered By: Maria Guadalupe Shore on 08-29-2024 Magnesium [Mass/Vol] 2.7 mg/dL High 1.6-2.6 [facility] Magnesium measurement 2.7 mg/dL High 1.6-2.6 [facility] Microscopic analysis of urin e for red blood cells (RBC)Ordered By: Luis Carlos Anderson on 08-29-2024 Urine RBC 5-10 SEEN /hpf 0-5 [facility] Microscopic analysis of urine for red blood cells (RBC) 5-10 SEEN /hpf 0-5 [facility] Mucus LM Ql (Urine sed)Order ed By: Luis Carlos Anderson on 08-29-2024 Mucus Ql (Urine sed) 1+ /hpf [facility] Mucus detection in urine sediment by light microscopy 1+ /hpf [facility] Nitrite Test strip Ql (U)Ord ered By: Luis Carlos Anderson on 08-29-2024 Nitrite Ql (U) Negative Negative [facility] Phosphorus measurementOrdere d By: Maria Guadalupe Shore on 08-29-2024 Phosphorus Level 4.9 mg/dL 2.5-4.9 [facility] Phosphorus measurement 4.9 mg/dL 2.5-4.9 [facility] Protein Test strip Ql (U)Ord ered By: Luis Carlos Anderson on 08-29-2024 Protein Ql (U) 30 mg/dl High Negative [facility] Urine protein assay by test strip, semi-quantitative 30 mg/dl High Negative [facility] Prothrombin timeOrdered By: Luis Carlos Anderson on 08-29-2024 PT Coag (PPP) [Time] 20.0 s High 11.7-14.9 [facility] Prothrombin time 20.0 SECONDS High 11.7-14.[address] [facility] Sodium urOrdered By: Maria Guadalupe Shore on 08-29-2024 Sodium (U) [Moles/Vol] 30 mmol/L Not Establ. [facility] Sodium [Moles/Vol] 30 mmol/L [facility] mmol/L Not Establ. [facility] Specific gravity (U) [Rel de nsity]Ordered By: Luis Carlos Anderson on 08-29-2024 Urine specific gravity measurement 1.015 1.002-1.030 [facility] Squamous epithelial cells de tection in urine sediment by light microscopyOrdered By: Luis Carlos Anderson on 08-29-2024 Epithelial cells.squamous LM Ql (Urine sed) 0 SEEN /hpf 0-5 [facility] Urine blood detectionOrdered By: Luis Carlos Anderson on 08-29-2024 Urine Occult Blood 150 /ul High Negative [facility] Urine blood detection 150 /ul High Negative [facility] Urine clarityOrdered By: Joann Anderson on 08-29-2024 Clarity (U) Clear Clear [facility] Urine color determinationOrd ered By: Luis Carlos Anderson on 08-29-2024 Color (U) Yellow Yellow [facility] Urine creatinine measurement (mass/volume)Ordered By: Maria Guadalupe Shore on 08-29-2024 Creatinine (U) [Mass/Vol] 173.00 mg/dL NO RANGE EST. [facility] Urine cultureOrdered By: Joann Anderson on 08-29-2024 Bacteria identified Cx Nom (U) Culture exhibits no growth. [facility] Urine culture Culture exhibits no growth. [facility] Urine glucose detectionOrder ed By: Luis Carlos Anderson on 08-29-2024 Glucose Ql (U) 50 mg/dl High Normal [facility] Urine ketones detection by t est stripOrdered By: Luis Carlos Anderson on 08-29-2024 Urine ketones detection by test strip Negative Negative [facility] Urine leukocyte esterase det ection by dipstickOrdered By: Luis Carlos Anderson on 08-29-2024 Leukocyte esterase Test strip Ql (U) 500 /ul High Negative [facility] Urine pHOrdered By: Luis Carlos hammond on 08-29-2024 pH (U) 6.0 [pH] 5.0 - 8.0 [facility] Urine sediment bacteria coun t by microscopy (number/high power field)Ordered By: Luis Carlos Anderson on 08-29-2024 Bacteria LM.HPF (Urine sed) [#/Area] RARE /hpf None Seen [facility] Urine specific gravity measu rementOrdered By: Luis Carlos Anderson on 08-29-2024 Specific gravity (U) [Rel density] 1.015 1.002-1.030 [facility] Urine total bilirubin detect ion by test stripOrdered By: Luis Carlos Anderson on 08-29-2024 Urine total bilirubin detection by test strip 1 mg/dL High Normal [facility] Urine urobilinogen measureme ntOrdered By: Luis Carlos Anderson on 08-29-2024 Urobilinogen Ql (U) 1 mg/dl High Normal [facility] Urobilinogen Ql (U)Ordered B y: Luis Carlos Anderson on 08-29-2024 Urobilinogen (U) [Mass/Vol] 1 mg/dL High Normal [facility] White blood cell countOrdere d By: Luis Carlos Anderson on 08-29-2024 Urine WBC 10-25 SEEN /hpf 0-5 [facility] White blood cell count 10-25 SEEN /hpf 0-5 [facility] White blood cell count 10-25 SEEN /hpf 0-5 [facility] aPTT Coag (PPP) [Time]Ordere d By: Luis Carlos Anderson on 08-29-2024 aPTT Coag (Bld) [Time] 40.9 s High 24.1-36.2 [facility] Activated partial thromboplastin time (aPTT) in platelet poor plasma by coagulation a 40.9 Seconds High 24.1-36.2 [facility] pH (U)Ordered By: Ashu on 08-29-2024 Urine pH 6.0 5.0 - 8.0 [facility] Vital Signs Date Time Vital Sign Value Performing Clinician Facility 02-16-2025 19:34-0400 Body temperature 97.8 [degF] No Primary Care Physician [facility] 02-16-2025 19:34-0400 Diastolic blood pressure 61 mm[Hg] No Primary Care Physician [facility] 02-16-2025 19:34-0400 Heart rate 76 /min No Primary Care Physician [facility] 02-16-2025 19:34-0400 Respiratory rate 18 /min No Primary Care Physician [facility] 02-16-2025 19:34-0400 SaO2% (BldA) [Mass fraction] 96 % No Primary Care Physician [facility] 02-16-2025 19:34-0400 Systolic blood pressure 102 mm[Hg] No Primary Care Physician [facility] 02-16-2025 17:20-0400 Body height 175.26 cm No Primary Care Physician [facility] 02-13-2025 21:17-0400 Body temperature 98.8 [degF] No Primary Care Physician [facility] 02-13-2025 21:17-0400 Diastolic blood pressure 75 mm[Hg] No Primary Care Physician [facility] 02-13-2025 21:17-0400 Heart rate 59 /min No Primary Care Physician [facility] 02-13-2025 21:17-0400 Respiratory rate 16 /min No Primary Care Physician [facility] 02-13-2025 21:17-0400 SaO2% (BldA) [Mass fraction] 100 % No Primary Care Physician [facility] 02-13-2025 21:17-0400 Systolic blood pressure 97 mm[Hg] No Primary Care Physician [facility] 02-13-2025 16:30-0400 Body height 175.26 cm No Primary Care Physician [facility] 02-13-2025 16:30-0400 Body mass index (BMI) [Ratio] 33 kg/m2 No Primary Care Physician [facility] 02-13-2025 16:30-0400 Body weight 101.5 kg No Primary Care Physician [facility] 02-11-2025 12:35-0400 Diastolic blood pressure 55 mm[Hg] No Primary Care Physician [facility] 02-11-2025 12:35-0400 Heart rate 63 /min No Primary Care Physician [facility] 02-11-2025 12:35-0400 Respiratory rate 18 /min No Primary Care Physician [facility] 02-11-2025 12:35-0400 Systolic blood pressure 85 mm[Hg] No Primary Care Physician [facility] 02-11-2025 12:33-0400 Body temperature 97.3 [degF] No Primary Care Physician [facility] 02-08-2025 01:26-0400 Body temperature 97.6 [degF] No Primary Care Physician [facility] 02-08-2025 01:26-0400 Diastolic blood pressure 63 mm[Hg] No Primary Care Physician [facility] 02-08-2025 01:26-0400 Heart rate 62 /min No Primary Care Physician [facility] 02-08-2025 01:26-0400 Respiratory rate 18 /min No Primary Care Physician [facility] 02-08-2025 01:26-0400 SaO2% (BldA) [Mass fraction] 100 % No Primary Care Physician [facility] 02-08-2025 01:26-0400 Systolic blood pressure 97 mm[Hg] No Primary Care Physician [facility] 02-07-2025 22:20-0400 Body mass index (BMI) [Ratio] 34.8 kg/m2 No Primary Care Physician [facility] 02-07-2025 22:20-0400 Body weight 107.1 kg No Primary Care Physician [facility] 02-07-2025 19:24-0400 Body height 175.26 cm No Primary Care Physician [facility] 01-31-2025 18:35-0400 Body temperature 98.1 [degF] No Primary Care Physician [facility] 01-31-2025 18:35-0400 Diastolic blood pressure 86 mm[Hg] No Primary Care Physician [facility] 01-31-2025 18:35-0400 Heart rate 100 /min No Primary Care Physician [facility] 01-31-2025 18:35-0400 Respiratory rate 16 /min No Primary Care Physician [facility] 01-31-2025 18:35-0400 SaO2% (BldA) [Mass fraction] 100 % No Primary Care Physician [facility] 01-31-2025 18:35-0400 Systolic blood pressure 127 mm[Hg] No Primary Care Physician [facility] 01-31-2025 09:49-0400 Body height 182.88 cm No Primary Care Physician [facility] 01-31-2025 09:49-0400 Body weight 110.3 kg No Primary Care Physician [facility] 01-28-2025 09:46-0400 Body mass index (BMI) [Ratio] 33 kg/m2 No Primary Care Physician [facility] 01-28-2025 09:00-0400 Body temperature 98 [degF] No Primary Care Physician [facility] 01-28-2025 09:00-0400 Diastolic blood pressure 67 mm[Hg] No Primary Care Physician [facility] 01-28-2025 09:00-0400 Heart rate 106 /min No Primary Care Physician [facility] 01-28-2025 09:00-0400 Respiratory rate 15 /min No Primary Care Physician [facility] 01-28-2025 09:00-0400 SaO2% (BldA) [Mass fraction] 100 % No Primary Care Physician [facility] 01-28-2025 09:00-0400 Systolic blood pressure 125 mm[Hg] No Primary Care Physician [facility] 01-28-2025 02:56-0400 Body height 187.96 cm No Primary Care Physician [facility] 01-28-2025 02:56-0400 Body mass index (BMI) [Ratio] 31.7 kg/m2 No Primary Care Physician [facility] 01-28-2025 02:56-0400 Body weight 112.2 kg No Primary Care Physician [facility] 01-21-2025 13:00-0400 Body temperature 97.7 [degF] No Primary Care Physician [facility] 01-21-2025 13:00-0400 Diastolic blood pressure 60 mm[Hg] No Primary Care Physician [facility] 01-21-2025 13:00-0400 Heart rate 91 /min No Primary Care Physician [facility] 01-21-2025 13:00-0400 Respiratory rate 18 /min No Primary Care Physician [facility] 01-21-2025 13:00-0400 SaO2% (BldA) [Mass fraction] 97 % No Primary Care Physician [facility] 01-21-2025 13:00-0400 Systolic blood pressure 100 mm[Hg] No Primary Care Physician [facility] 01-21-2025 05:13-0400 Body mass index (BMI) [Ratio] 35.8 kg/m2 No Primary Care Physician [facility] 01-21-2025 05:13-0400 Body weight 110.1 kg No Primary Care Physician [facility] 01-17-2025 14:51-0400 Body height 175.26 cm No Primary Care Physician [facility] 01-09-2025 14:01-0400 Heart rate 69 /min No Primary Care Physician [facility] 01-09-2025 14:01-0400 Respiratory rate 16 /min No Primary Care Physician [facility] 01-09-2025 14:01-0400 SaO2% (BldA) [Mass fraction] 100 % No Primary Care Physician [facility] 01-09-2025 14:00-0400 Diastolic blood pressure 59 mm[Hg] No Primary Care Physician [facility] 01-09-2025 14:00-0400 Systolic blood pressure 107 mm[Hg] No Primary Care Physician [facility] 01-09-2025 13:04-0400 Body temperature 98 [degF] No Primary Care Physician [facility] 01-09-2025 10:10-0400 Body height 175.26 cm No Primary Care Physician [facility] 01-09-2025 10:10-0400 Body mass index (BMI) [Ratio] 29.5 kg/m2 No Primary Care Physician [facility] 01-09-2025 10:10-0400 Body weight 90.6 kg No Primary Care Physician [facility] 01-05-2025 16:00-0400 Body temperature 98.1 [degF] No Primary Care Physician [facility] 01-05-2025 16:00-0400 Diastolic blood pressure 60 mm[Hg] No Primary Care Physician [facility] 01-05-2025 16:00-0400 Heart rate 73 /min No Primary Care Physician [facility] 01-05-2025 16:00-0400 Respiratory rate 16 /min No Primary Care Physician [facility] 01-05-2025 16:00-0400 SaO2% (BldA) [Mass fraction] 94 % No Primary Care Physician [facility] 01-05-2025 16:00-0400 Systolic blood pressure 103 mm[Hg] No Primary Care Physician [facility] 01-05-2025 04:44-0400 Body mass index (BMI) [Ratio] 29.9 kg/m2 No Primary Care Physician [facility] 01-05-2025 04:44-0400 Body weight 92.2 kg No Primary Care Physician [facility] 01-02-2025 10:11-0400 Body height 175.26 cm No Primary Care Physician [facility] 01-02-2025 06:34-0400 Body temperature 97.8 [degF] No Primary Care Physician [facility] 01-02-2025 06:34-0400 Diastolic blood pressure 73 mm[Hg] No Primary Care Physician [facility] 01-02-2025 06:34-0400 Heart rate 68 /min No Primary Care Physician [facility] 01-02-2025 06:34-0400 Respiratory rate 20 /min No Primary Care Physician [facility] 01-02-2025 06:34-0400 SaO2% (BldA) [Mass fraction] 100 % No Primary Care Physician [facility] 01-02-2025 06:34-0400 Systolic blood pressure 105 mm[Hg] No Primary Care Physician [facility] 01-02-2025 02:59-0400 Body height 175.26 cm No Primary Care Physician [facility] 01-02-2025 02:59-0400 Body mass index (BMI) [Ratio] 27.5 kg/m2 No Primary Care Physician [facility] 01-02-2025 02:59-0400 Body weight 84.5 kg No Primary Care Physician [facility] 12-30-2024 05:24-0400 Body temperature 97.9 [degF] No Primary Care Physician [facility] 12-30-2024 05:24-0400 Diastolic blood pressure 52 mm[Hg] No Primary Care Physician [facility] 12-30-2024 05:24-0400 Heart rate 71 /min No Primary Care Physician [facility] 12-30-2024 05:24-0400 Respiratory rate 18 /min No Primary Care Physician [facility] 12-30-2024 05:24-0400 SaO2% (BldA) [Mass fraction] 93 % No Primary Care Physician [facility] 12-30-2024 05:24-0400 Systolic blood pressure 93 mm[Hg] No Primary Care Physician [facility] 12-30-2024 01:07-0400 Body height 175.26 cm No Primary Care Physician [facility] 12-30-2024 01:07-0400 Body mass index (BMI) [Ratio] 28.4 kg/m2 No Primary Care Physician [facility] 12-30-2024 01:07-0400 Body weight 87.3 kg No Primary Care Physician [facility] 12-26-2024 14:27-0400 Body temperature 97 [degF] No Primary Care Physician [facility] 12-26-2024 14:27-0400 Diastolic blood pressure 58 mm[Hg] No Primary Care Physician [facility] 12-26-2024 14:27-0400 Heart rate 64 /min No Primary Care Physician [facility] 12-26-2024 14:27-0400 Respiratory rate 16 /min No Primary Care Physician [facility] 12-26-2024 14:27-0400 SaO2% (BldA) [Mass fraction] 97 % No Primary Care Physician [facility] 12-26-2024 14:27-0400 Systolic blood pressure 90 mm[Hg] No Primary Care Physician [facility] 12-26-2024 10:00-0400 Body height 175.26 cm No Primary Care Physician [facility] 12-26-2024 10:00-0400 Body mass index (BMI) [Ratio] 29.7 kg/m2 No Primary Care Physician [facility] 12-26-2024 10:00-0400 Body weight 91.4 kg No Primary Care Physician [facility] 12-02-2024 12:13-0400 Body temperature 98.7 [degF] No Primary Care Physician [facility] 12-02-2024 12:13-0400 Diastolic blood pressure 68 mm[Hg] No Primary Care Physician [facility] 12-02-2024 12:13-0400 Heart rate 86 /min No Primary Care Physician [facility] 12-02-2024 12:13-0400 Respiratory rate 18 /min No Primary Care Physician [facility] 12-02-2024 12:13-0400 SaO2% (BldA) [Mass fraction] 97 % No Primary Care Physician [facility] 12-02-2024 12:13-0400 Systolic blood pressure 117 mm[Hg] No Primary Care Physician [facility] 12-02-2024 02:57-0400 Body mass index (BMI) [Ratio] 33 kg/m2 No Primary Care Physician [facility] 12-02-2024 02:57-0400 Body weight 101.6 kg No Primary Care Physician [facility] 11-29-2024 09:53-0400 Body height 175.26 cm No Primary Care Physician [facility] 11-25-2024 18:31-0400 Body temperature 98.2 [degF] No Primary Care Physician [facility] 11-25-2024 18:31-0400 Diastolic blood pressure 80 mm[Hg] No Primary Care Physician [facility] 11-25-2024 18:31-0400 Heart rate 97 /min No Primary Care Physician [facility] 11-25-2024 18:31-0400 Respiratory rate 18 /min No Primary Care Physician [facility] 11-25-2024 18:31-0400 SaO2% (BldA) [Mass fraction] 98 % No Primary Care Physician [facility] 11-25-2024 18:31-0400 Systolic blood pressure 122 mm[Hg] No Primary Care Physician [facility] 11-24-2024 15:17-0400 Body weight 102.7 kg No Primary Care Physician [facility] 11-21-2024 05:32-0400 Body mass index (BMI) [Ratio] 33.4 kg/m2 No Primary Care Physician [facility] 11-21-2024 05:00-0400 Heart rate 77 /min No Primary Care Physician [facility] 11-21-2024 04:51-0400 Body temperature 98.2 [degF] No Primary Care Physician [facility] 11-21-2024 04:51-0400 Diastolic blood pressure 57 mm[Hg] No Primary Care Physician [facility] 11-21-2024 04:51-0400 Respiratory rate 16 /min No Primary Care Physician [facility] 11-21-2024 04:51-0400 SaO2% (BldA) [Mass fraction] 97 % No Primary Care Physician [facility] 11-21-2024 04:51-0400 Systolic blood pressure 127 mm[Hg] No Primary Care Physician [facility] 11-21-2024 01:32-0400 Body height 175.26 cm No Primary Care Physician [facility] 11-21-2024 01:32-0400 Body mass index (BMI) [Ratio] 34.3 kg/m2 No Primary Care Physician [facility] 11-21-2024 01:32-0400 Body weight 105.4 kg No Primary Care Physician [facility] 11-12-2024 18:03-0400 SaO2% (BldA) [Mass fraction] 99 % [facility] P[facility] Comment on above: Order Comment: Specimen Type: ARTERIAL B LOOD SPECIMENOrdering Facility: [facility] Address: [address] [place] [address] Performed By: #### A LLBG ####[facility]CLIA [id number] [place] [address] [place] 11-10-2024 23:40-0400 Body temperature 97.8 [degF] No Primary Care Physician [facility] 11-10-2024 23:40-0400 Diastolic blood pressure 70 mm[Hg] No Primary Care Physician [facility] 11-10-2024 23:40-0400 Heart rate 110 /min No Primary Care Physician [facility] 11-10-2024 23:40-0400 Respiratory rate 18 /min No Primary Care Physician [facility] 11-10-2024 23:40-0400 SaO2% (BldA) [Mass fraction] 97 % No Primary Care Physician [facility] 11-10-2024 23:40-0400 Systolic blood pressure 116 mm[Hg] No Primary Care Physician [facility] 11-10-2024 04:54-0400 Body mass index (BMI) [Ratio] 36.7 kg/m2 No Primary Care Physician [facility] 11-10-2024 04:54-0400 Body weight 112.8 kg No Primary Care Physician [facility] 11-09-2024 14:30-0400 Body height 175.26 cm No Primary Care Physician [facility] 10-29-2024 01:23-0400 Body temperature 97.4 [degF] No Primary Care Physician [facility] 10-29-2024 01:23-0400 Diastolic blood pressure 54 mm[Hg] No Primary Care Physician [facility] 10-29-2024 01:23-0400 Heart rate 77 /min No Primary Care Physician [facility] 10-29-2024 01:23-0400 Respiratory rate 14 /min No Primary Care Physician [facility] 10-29-2024 01:23-0400 SaO2% (BldA) [Mass fraction] 97 % No Primary Care Physician [facility] 10-29-2024 01:23-0400 Systolic blood pressure 97 mm[Hg] No Primary Care Physician [facility] 10-28-2024 21:43-0400 Body mass index (BMI) [Ratio] 30.4 kg/m2 No Primary Care Physician [facility] 10-28-2024 21:43-0400 Body weight 93.1 kg No Primary Care Physician [facility] 10-28-2024 17:13-0400 Body height 175.01 cm No Primary Care Physician [facility] 10-04-2024 21:45-0500 Diastolic blood pressure 89 mm[Hg] Maurice wen MD Work Phone: [facility] 10-04-2024 21:45-0500 Heart rate 94 /min Maurice Rincon MD Work Phone: [facility] 10-04-2024 21:45-0500 Respiratory rate 18 /min Maurice Rincon MD Work Phone: [facility] 10-04-2024 21:45-0500 SaO2% (BldA) [Mass fraction] 100 % Maurice Rincon MD Work Phone: [facility] 10-04-2024 21:45-0500 Systolic blood pressure 152 mm[Hg] Maurice hobson MD Work Phone: [facility] 10-04-2024 12:03-0500 Body temperature 97.59 [degF] Maurice Rincon MD Work Phone: [facility] 10-04-2024 12:03-0500 Body weight 117.48 kg Maurice Rincon MD Work Phone: [facility] 09-29-2024 10:21-0500 Body temperature 97.3 [degF] No Primary Care Physician [facility] 09-29-2024 10:21-0500 Diastolic blood pressure 74 mm[Hg] No Primary Care Physician [facility] 09-29-2024 10:21-0500 Heart rate 81 /min No Primary Care Physician [facility] 09-29-2024 10:21-0500 Respiratory rate 18 /min No Primary Care Physician [facility] 09-29-2024 10:21-0500 Systolic blood pressure 138 mm[Hg] No Primary Care Physician [facility] 09-15-2024 03:49-0500 Body temperature 97.8 [degF] No Primary Care Physician [facility] 09-15-2024 03:49-0500 Diastolic blood pressure 70 mm[Hg] No Primary Care Physician [facility] 09-15-2024 03:49-0500 Heart rate 80 /min No Primary Care Physician [facility] 09-15-2024 03:49-0500 Respiratory rate 17 /min No Primary Care Physician [facility] 09-15-2024 03:49-0500 SaO2% (BldA) [Mass fraction] 96 % No Primary Care Physician [facility] 09-15-2024 03:49-0500 Systolic blood pressure 142 mm[Hg] No Primary Care Physician [facility] 09-14-2024 04:07-0500 Body mass index (BMI) [Ratio] 36.7 kg/m2 No Primary Care Physician [facility] 09-14-2024 04:07-0500 Body weight 112.8 kg No Primary Care Physician [facility] 09-10-2024 14:03-0500 Body height 175.26 cm No Primary Care Physician [facility] 09-07-2024 01:24-0500 Inhaled oxygen concentration 21 % No Primary Care Physician [facility] 09-06-2024 05:00-0500 Inhaled oxygen flow rate 8 L/min No Primary Care Physician [facility] 09-02-2024 15:36-0500 Body weight 104 kg No Primary Care Physician [facility] 09-02-2024 14:54-0500 Body temperature 98.1 [degF] No Primary Care Physician [facility] 09-02-2024 14:54-0500 Diastolic blood pressure 62 mm[Hg] No Primary Care Physician [facility] 09-02-2024 14:54-0500 Heart rate 60 /min No Primary Care Physician [facility] 09-02-2024 14:54-0500 Respiratory rate 18 /min No Primary Care Physician [facility] 09-02-2024 14:54-0500 SaO2% (BldA) [Mass fraction] 99 % No Primary Care Physician [facility] 09-02-2024 14:54-0500 Systolic blood pressure 118 mm[Hg] No Primary Care Physician [facility] 09-02-2024 03:57-0500 Body mass index (BMI) [Ratio] 33.8 kg/m2 No Primary Care Physician [facility] 08-21-2024 16:33-0500 Body temperature 98.5 [degF] No Primary Care Physician [facility] 08-21-2024 16:33-0500 Diastolic blood pressure 78 mm[Hg] No Primary Care Physician [facility] 08-21-2024 16:33-0500 Heart rate 61 /min No Primary Care Physician [facility] 08-21-2024 16:33-0500 Respiratory rate 12 /min No Primary Care Physician [facility] 08-21-2024 16:33-0500 SaO2% (BldA) [Mass fraction] 97 % No Primary Care Physician [facility] 08-21-2024 16:33-0500 Systolic blood pressure 114 mm[Hg] No Primary Care Physician [facility] 08-21-2024 13:52-0500 Body mass index (BMI) [Ratio] 33 kg/m2 No Primary Care Physician [facility] 08-21-2024 13:52-0500 Body weight 101.5 kg No Primary Care Physician [facility] Encounters Encounter Date Encounter Type Care Provider Facility Start: 02-16-2025 ambulatory Jae Mosteller Fac ility:[facility] Start: 02-16-2025 Evaluation and manag ement of inpatient No Primary Care Physician -Medical Surgical 3 Start: 02-16-2025 Dr. Jae Ash DO -Medical Surgical 3 Work Phone: Start: 02-16-2025 Dr. Jerald Sherwood MD -[facility] Start: 02-16-2025 ambulatory Jerald Sherwood Facility:[place] Start: 02-13-2025 End: 02-13-2025 No Primary Care Physician -Emergency Department Work Phone: Start: 02-13-2025 End: 02-13-2025 Emergency department patient visit No Primary Care Physician -Emergency Department Start: 02-11-2025 Mina Blood DO -Ultras [facility] Work Phone: Start: 02-11-2025 ambulatory Mina Blood Facility:[facility] Start: 02-07-2025 End: 02-08-2025 No Primary Care Physician -Emergency Department Work Phone: Start: 02-07-2025 End: 02-08-2025 Emergency department patient visit No Primary Care Physician -Emergency Department Start: 01-31-2025 Dr. Yaritza Leo DO -[facility] Work Phone: Start: 01-30-2025 Dr. Yaritza Leo DO -[facility] Work Phone: Start: 01-29-2025 Dr. Yaritza Leo DO -[facility] Work Phone: Start: 01-28-2025 ambulatory Boone Izquierdo Facility:[facility] Start: 01-28-2025 End: 01-31-2025 Evaluation and management of inpatient No Primary Care Physician [facility] Work Phone: Start: 01-28-2025 End: 01-31-2025 Dr. Boone Izquierdo [facility] In[facility] Work Phone: Start: 01-21-2025 Dr. Anurag Irene MD -[facility] Inpatient [facility] Work Phone: Start: 01-20-2025 Dr. Anurag Irene MD -[facility] Work Phone: Start: 01-19-2025 Dr. Anurag Irene MD [facility] In[facility] Work Phone: Start: 01-18-2025 Dr. Anurag Irene MD [facility] Work Phone: Start: 01-17-2025 Dr. Anurag Irene MD [facility] Work Phone: Start: 01-16-[address] [facility] Work Phone: Start: 01-15-[address] Dr[address] [facility] Work Phone: Start: 01-14-[address] [facility] Work Phone: Start: 01-13-[address] [facility] Work Phone: Start: 01-12-[address] Dr[address] [facility] Work Phone: Start: 01-11-2025 Dr. Jefferson Malave MD - [facility] Start: 01-11-20[address] Dr. [address] [facility] Work Phone: Start: 01-11-2025 Dr. Bola Meraz DO -[facility] Start: 01-10-[address] [facility] Work Phone: Start: 01-09-2025 ambulatory [facility] [place] Start: 01-09-2025 End: 01-21-2025 Evaluation and management of inpatient No Primary Care Physician [facility] Work Phone: Start: 01-09-2025 End: 01-21-2025 Dr. Yaritza Leo DO -Intensive Care Unit Work Phone: Start: 01-05-2025 Dr. Hill Acuña MD -[facility] In[facility]icians Work Phone: Start: 01-04-2025 Dr. Hill Acuña MD -[facility] Work Phone: Start: 01-03-2025 Dr. Hill Acuña MD -[facility] Work Phone: Start: 01-02-2025 ambulatory Buster Fuchs Fac ility:[facility] Start: 01-02-2025 End: 01-05-2025 Evaluation and management of inpatient No Primary Care Physician [facility] Work Phone: Start: 01-02-2025 End: 01-05-2025 Dr. Buster Fuchs MD -Progressive Care Unit Work Phone: Start: 12-30-2024 End: 12-30-2024 No Primary Care Physician -Emergency Department Work Phone: Start: 12-30-2024 End: 12-30-2024 Emergency department patient visit No Primary Care Physician [facility] Work Phone: Start: 12-26-2024 End: 12-26-2024 No Primary Care Physician -Emergency Department Work Phone: Start: 12-26-2024 End: 12-26-2024 Emergency department patient visit No Primary Care Physician [facility] Work Phone: Start: 12-15-2024 End: 12-15-2024 ambulatory No Primary Care Physician [facility] Work Phone: Start: 12-15-2024 End: 12-15-2024 Josy Elias NP-C -Ultrasound [facility] Work Phone: Start: 12-15-2024 End: 12-15-2024 ambulatory Josy Elias Facility:[facility] Start: 12-07-2024 End: 12-10-2024 ambulatory Eva Pichardo MD Work Phone: Urology Start: 12-07-2024 End: 12-07-2024 Josy Elias NP-C -[facility] Start: 12-07-2024 End: 12-07-2024 ambulatory Josy Elias Facility:[facility] Start: 12-02-2024 Dr. Hill Acuña MD - [facility] Work Phone: Start: 12-01-2024 Dr. Hlil Acuña MD - [facility] Work Phone: Start: 11-30-2024 Dr. Hill Acuña MD - [facility] Work Phone: Start: 11-29-2024 Dr. Hill Acuña MD - [facility] Work Phone: Start: 11-28-2024 ambulatory Kathie Powers [facility] Start: 11-28-2024 End: 12-02-2024 Evaluation and management of inpatient Kathie Powers Facility:[facility] Start: 11-28-2024 End: 12-02-2024 Dr. Hill Acuña MD -Progressive Care Unit Work Phone: Start: 11-25-2024 Dr. Anurag Irene MD -[facility] Inpatient Physicians Work Phone: Start: 11-24-2024 Dr. Anurag Irene MD -[facility] Inpatient Physicians Work Phone: Start: 11-23-2024 ambulatory Jae Ash Fac ility:[facility] Start: 11-23-2024 End: 11-25-2024 Evaluation and management of inpatient Jae edvin Facility:[facility] Start: 11-23-2024 End: 11-25-2024 Dr. Anurag Irene MD -Medical Surgical 3 Work Phone: Start: 11-22-2024 Dr. Anurag Irene MD -W [facility] Inpatient Physicians Work Phone: Start: 11-21-2024 ambulatory Jae Ash Fac ility:[facility] Start: 11-21-2024 observation encounter No Prima ry Care Physician [facility] Work Phone: Start: 11-21-2024 Dr. Jae Ash DO -Medical Surgical 3 Work Phone: Start: 11-18-2024 Patient encounter status Jeremi Morgano RN Work Phone: [facility] Work Phone: Start: 11-18-2024 End: 11-18-2024 Telephone encounter Jeremi Abreu RN Work Phone: Transplant Center Comment on above: Outcome Liver Transp lant Selection Committee Start: 11-15-2024 End: 11-15-2024 Evaluation and management of inpatient Izabela Harvey DDS Work Phone: Dentistry Comment on above: Liver transplant can didate (Primary Dx); Pre-operative clearance Start: 11-15-2024 End: 11-15-2024 Preoperative state Izabela Harevy DDS Work Phone: [facility] Start: 11-15-2024 End: 11-15-2024 Social Work Marah Claroswellington QUALITY ASSURANCE ASSESSOR Work Phone: Transplant Center Start: 11-12-2024 End: 11-12-2024 Patient encounter [facility] Start: 11-12-2024 End: 11-12-2024 Orders Only Liver Txp Coordinator Work Phone: Transplant Center Comment on above: 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 Kathie Powers MD -[facility] Work Phone: Start: 11-09-2024 Dr. Kathie Powers MD -[facility] Work Phone: Start: 11-08-2024 Dr. Kathie Powers MD -[facility] Work Phone: Start: 11-07-2024 Dr. Hill Acuña MD -[facility] Work Phone: Start: 11-06-2024 Dr. Hill Acuña MD -[facility] Inpatient Physicians Work Phone: Start: 11-05-2024 Dr. Hill Acuña MD -[facility] In[facility] Work Phone: Start: 11-04-2024 Dr. Hill Acuña MD -[facility] Inpatient Physicians Work Phone: Start: 11-03-2024 Dr. Hill Acuña MD -[facility] Inpatient [facility] Work Phone: Start: 11-02-2024 Dr. Hill Acuña MD -[facility] In[facility] Work Phone: Start: 11-01-2024 Dr. Hill Acuña MD -[facility] Work Phone: Start: 11-01-2024 [facility] Start: 10-31-2024 Dr. Buster Fuchs MD -[place] [facility] Work Phone: Start: 10-30-2024 [facility] Start: 10-30-2024 Dr. Buster Fuchs MD -[place] [facility] Work Phone: Start: 10-29-[address] [facility] Start: 10-29-2024 ambulatory [facility] [place] [facility] Start: 10-29-2024 End: 11-11-2024 Evaluation and management of inpatient Dr. Hill Caro DO -Intensive Care Unit Work Phone: Start: 10-29-2024 End: 11-11-2024 Dr. Kathie Powers MD -Progressive Care Unit Work Phone: Start: 10-19-2024 ambulatory No Primary Car e Physician Facility:[facility] Start: 10-04-2024 End: 10-04-2024 Emergency department patient visit MAURICE RINCON [facility] Emergency Medicine Comment on above: Other ascites (Prima ry Dx); Abdominal pain, generalized; Other cirrhosis of liver; Peripheral edema; Coagulopathy (Multi); Hyperbilirubinemia; Cirrhosis of liver with ascites, unspecified hepatic cirrhosis type (Multi) Start: 09-29-2024 ambulatory No Primary Car e Physician [place] Start: 09-29-2024 Non-patient / Non-visit Jasmine nunez MECHANICAL COMMISSIONING ENGINEER-C -[facility] Start: 09-29-2024 Jasmine Morocho MECHANICAL COMMISSIONING ENGINEER-C - [facility] Start: 09-29-2024 End: 09-29-2024 ambulatory No Primary Care Physician [facility] Work Phone: Start: 09-29-2024 End: 09-29-2024 Patient encounter procedure No Primary Care Physician -Ultrasound, [facility] Work Phone: Start: 09-29-2024 End: 09-29-2024 No Primary Care Physician -Ultrasound, [facility] Work Phone: Start: 09-29-2024 End: 09-29-2024 ambulatory No Primary Care Physician Facility:[facility] Start: 09-14-2024 Non-patient / Non-visit Dr. Boone James [facility] Work Phone: Start: 09-14-2024 Dr. Bo[facility]quierdo [facility] Work Phone: Start: 09-13-2024 Non-patient / Non-visit Dr. Boone James [facility] In[facility] Phys[facility] Work Phone: Start: 09-13-2024 Dr. Boone Izquierdo [facility] In[facility] Phys[facility] Work Phone: Start: 09-12-2024 Non-patient / Non-visit Dr. Noonan [facility] Inpatient Physicians Work Phone: Start: 09-12-2024 Dr. Jae Ash [facility] Inpatient Phys[facility] Work Phone: Start: 09-11-2024 Non-patient / Non-visit Dr. Noonan [facility] Inpatient Physicians Work Phone: Start: 09-11-2024 Dr. Jae Ash [facility] In[facility] Work Phone: Start: 09-10-2024 Non-patient / Non-visit Dr. Noonan [facility] In[facility] Work Phone: Start: 09-10-2024 [facility] Work Phone: Start: 09-09-2024 Non-patient / Non-visit Dr. Slaughter [facility] Inpatient Physicians Work Phone: Start: 09-09-2024 Dr. Jae Ash [facility] Inpatient Physicians Work Phone: Start: 09-08-2024 Non-patient / Non-visit Dr. Anurag Irene [facility] Inpatient Physicians Work Phone: Start: 09-08-2024 Dr. Anurag Irene [facility] Inpatient Physicians Work Phone: Start: 09-07-2024 Non-patient / Non-visit Dr. Anurag Irene MD [facility] Inpatient Physicians Work Phone: Start: 09-07-2024 Dr. Anurag Irene [facility] Inpatient Physicians Work Phone: Start: 09-06-2024 Non-patient / Non-visit Dr. Anurag Irene [facility] Inpatient Physicians Work Phone: Start: 09-06-2024 Dr. Anurag Irene MD [facility] Inpatient Physicians Work Phone: Start: 09-05-2024 ambulatory Hill de Kyle Facili ty:[facility] Start: 09-05-2024 End: 09-15-2024 Evaluation and management of inpatient Dr. Boone Izquierdo -Progressive Care Unit Work Phone: Start: 09-05-2024 End: 09-15-2024 Dr. Boone Izquierdo -Progressive Care Unit Work Phone: Start: 09-02-2024 Non-patient / Non-visit Dr. Lissette Carlin [facility] Inpatient Physicians Work Phone: Start: 09-02-2024 Dr. Rick gutierrez [facility] Work Phone: Start: 09-01-2024 Non-patient / Non-visit Niranjan Frie nd DO -[facility] Start: 09-01-2024 Niranjan Friend DO -[facility] Start: 09-01-2024 Non-patient / Non-visit Dr. Lissette Carlin [facility] In[facility] Work Phone: Start: 09-01-2024 Dr. Rick gutierrez [facility] Work Phone: Start: 08-31-2024 Non-patient / Non-visit Niranjan Frie nd DO -[facility] Start: 08-31-2024 Niranjan Friend DO -[facility] Start: 08-31-2024 Non-patient / Non-visit Dr. Lissette Carlin [facility] In[facility] Work Phone: Start: 08-31-2024 Dr. Rick gutierrez [facility] Work Phone: Start: 08-31-2024 Non-patient / Non-visit Dr. Bola Patiño own DO -[facility] Start: 08-31-2024 Dr. Bola Meraz DO -[facility] Start: 08-30-2024 Non-patient / Non-visit Niranjan Frie nd DO -[facility] Start: 08-30-2024 Niranjan Friend DO -[facility] Start: 08-30-2024 Non-patient / Non-visit Dr. Lissette Carlin [facility] In[facility] Work Phone: Start: 08-30-2024 Dr. Rick gutierrez [facility] In[facility] Work Phone: Start: 08-30-2024 Non-patient / Non-visit Dr. Bola Patiño own DO -[facility] Start: 08-30-2024 Dr. Bola Meraz DO -[facility] Start: 08-29-2024 ambulatory Niranjan Friend [place] [place] Start: 08-29-2024 End: 09-02-2024 Evaluation and management [...] Date Procedure Procedure Detail Performing Clinician Start: 02-16-2025 Blood count smear mc rscp w/mnl difrntl wbc count No Primary Care Physician Start: 02-16-2025 Mean corpuscular hem oglobin concentration determination No Primary Care Physician Start: 02-16-2025 Nucleated red blood cell count procedure No Primary Care Physician Start: 02-16-2025 Platelet mean volume determination No Primary Care Physician Start: 02-13-2025 Blood count smear mc rscp w/mnl difrntl wbc count No Primary Care Physician Start: 02-13-2025 Estimated creatinine clearance No Primary Care Physician Start: 02-13-2025 Mean corpuscular hem oglobin concentration determination No Primary Care Physician Start: 02-13-2025 Nucleated red blood cell count procedure No Primary Care Physician Start: 02-13-2025 Platelet mean volume determination No Primary Care Physician Start: 02-13-2025 Triacylglycerol lipa se measurement No Primary Care Physician Start: 02-13-2025 Computed tomography of abdomen and pelvis with intravenous contrast No Primary Care Physician Start: 02-11-2025 Centesis No Primary Care Physician Start: 02-07-2025 Computed tomography of abdomen and [...] Physician Start: 12-26-2024 Urine culture No Primar Care Physician Start: 12-26-2024 Urine microscopy: red [...] Start: 11-21-2024 Plain chest X-ray No Pr [facility] Care Physician Start: 11-18-2024 Antibody screen KATHIE P IERCE Comment on above: Order Comment: Speci men Type: BLOOD SPECIMENOrdering Facility: [facility] Address: [address] [place] [address] Performed By: #### T SCR ####CC MAIN BLOOD BANKCLIA [id number] [address] Start: 11-16-2024 End: 11-16-2024 Oscar Abreu RN Work Phone: Start: 11-15-2024 Antibody screen KATHIE Alcaraz IESABIHA Comment on above: Order Comment: Speci men Type: BLOOD SPECIMENOrdering Facility: [facility] Address: [address] [place] [address] Performed By: #### T SCR ####CC MAIN BLOOD BANKCLIA [id number] [address] Start: 11-13-2024 Lipid 1996 panel - S sandie or Plasma Marah Arauz QUALITY ASSURANCE ASSESSOR Work Phone: Start: 11-12-2024 Antibody screen KATHIE LUCAS Comment on above: Order Comment: Speci men Type: BLOOD SPECIMENOrdering Facility: [facility] Address: [address] [place] [address] Performed By: #### T SCR ####CC MAIN BLOOD BANKCLIA [id number] [address] Start: 11-10-2024 Urine microscopy: red cells [...] Physician Start: 11-09-2024 Assay of lactate No Ivonne alex Care Physician Start: 11-08-2024 Serum inorganic phos [...] Basic metabolic pane l calcium total Sriram Oleary PA-C Work Phone: Start: 09-29-2024 Centesis No [...] Start: 09-05-2024 Assay of lactate No [facility] Care Physician Start: 09-05-2024 Folic [...] Physician Start: 08-29-2024 Plain chest X-ray No [facility] Care Physician Start: 08-29-2024 Triacylglycerol lipa se [...] DTaP,Tdap,Td Vaccine (2 - Td or Tdap) [facility] Start: 11-17-2029 Prostate specific antigen measurement Prostate Cancer Screening Discussion [facility] Start: 11-13-2029 Lipid panel Lipid Screening [facility] Start: 11-19-2027 Diabetes Screening Diabetes Screening [facility] Start: 11-17-2027 Diabetes Screening Diabetes Screening [facility] Start: 11-15-2027 Diabetes Screening Diabetes Screening [facility] Start: 11-13-2027 Diabetes Screening Diabetes Screening [facility] Start: 11-18-2025 Creatinine measurement Serum Creatinine [facility] Start: 11-16-2025 Creatinine measurement Serum Creatinine [facility] Start: 11-16-2025 Screening for malignant neoplasm of colon [facility] Start: 11-15-2025 Creatinine measurement Serum Creatinine [facility] Start: 11-12-2025 Creatinine measurement Serum Creatinine [facility] Start: 05-16-2025 Hepatitis A Vaccine (2 of 2 - Risk 2-dose series) Hepatitis A Vaccine (2 of 2 - Risk 2-dose series) [facility] Start: 03-02-2025 End: 03-02-2025 Patient encounter procedure 03/02/2025 2:20 PM EDT Office Visit Family Medicine [address] [address] Alex Alexandre MD [address] [place] [id number] Hospital discharge, diabetes mx, need for repeat vaccines, and consideration of CT chest [facility] [place] Comment on above: Hospital discharge, diabetes mx, need fo r repeat vaccines, and consideration of CT chest Start: 02-16-2025 Prothrombin time [facility] Start: 02-16-2025 Hospital admission, emergency, from emergency room, medical nature [facility] Start: 02-16-2025 Verification routine [facility] Start: 02-16-2025 Admission procedure [facility] Start: 02-13-2025 [facility] Start: 02-08-2025 Centesis [facility] Start: 02-08-2025 End: 02-08-2025 [facility] Start: 02-02-2025 End: 02-02-2025 Patient encounter procedure 02/02/2025 9:20 AM EDT Office Visit [facility] [place] [address] [place] [address] Ray Vega MD [address] [place] [address] est care [facility] [place] Comment on above: est care Start: 01-31-2025 Patient discharge [facility] Start: 01-31-2025 Referral to service [facility] Start: 01-31-2025 [facility] Start: 01-29-2025 [facility] Start: 01-28-2025 Blood culture [facility] Start: 01-28-2025 Application of intermittent pneumatic compression device [facility] Start: 01-28-2025 Following clinical pathway protocol [facility] Start: 01-28-2025 Assessment of risk of venous thromboembolism [facility] Start: 01-28-2025 Care regimes management [facility] Start: 01-28-2025 Documentation procedure [facility] Start: 01-28-2025 Insertion of catheter into peripheral vein [facility] Start: 01-28-2025 Notification of physician [facility] Start: 01-28-2025 Providing care according to standard [facility] Start: 01-28-2025 Provision of activity privileges [facility] Start: 01-28-2025 Referral to occupational therapist [facility] Start: 01-28-2025 Referral to service [facility] Start: 01-28-2025 Speech therapy assessment [facility] Start: 01-28-2025 End: 01-28-2025 [facility] Start: 01-28-2025 Admission procedure [facility] Start: 01-28-2025 End: 01-28-2025 [facility] Start: 01-28-2025 End: 01-28-2025 [facility] Start: 01-28-2025 [facility] Start: 01-21-2025 Patient discharge [facility] Start: 01-18-2025 End: 01-18-2025 Microbial culture, body fluid [facility] Start: 01-18-2025 Care planning and problem solving actions [facility] Start: 01-18-2025 Anaerobic microbial culture [facility] Start: 01-17-2025 [facility] Start: 01-16-2025 [facility] Start: 01-15-2025 [facility] Start: 01-14-2025 Consultation for pain [facility] Start: 01-14-2025 [facility] Start: 01-13-2025 Administration of blood product [facility] Start: 01-13-2025 [facility] Start: 01-12-2025 [facility] Start: 01-11-2025 Application of intermittent pneumatic compression device [facility] Start: 01-11-2025 Referral to general surgeon [facility] Start: 01-11-2025 [facility] Start: 01-10-2025 Care planning and problem solving actions [facility] Start: 01-09-2025 Assessment of risk of venous thromboembolism [facility] Start: 01-09-2025 Cardiac monitoring [facility] Start: 01-09-2025 Catheterization of vein [facility] Start: 01-09-2025 Inhalation therapy procedure [facility] Start: 01-09-2025 Insertion of catheter into peripheral vein [facility] Start: 01-09-2025 Measuring intake and output [facility] Start: 01-09-2025 Notification of physician [facility] Start: 01-09-2025 Patient referral to dietitian [facility] Start: 01-09-2025 Providing care according to standard [facility] Start: 01-09-2025 Referral to occupational therapist [facility] Start: 01-09-2025 Referral to service [facility] Start: 01-09-2025 Vital signs measurements [facility] Start: 01-09-2025 [facility] Start: 01-09-2025 End: 01-09-2025 Following clinical pathway protocol [facility] Start: 01-09-2025 Bacterial nucleic acid assay [facility] Start: 01-09-2025 Verification routine [facility] Start: 01-09-2025 Admission procedure [facility] Start: 01-09-2025 Hospital admission, emergency, from emergency room, medical nature [facility] Start: 01-09-2025 End: 01-09-2025 [facility] Start: 01-09-2025 Consultation [facility] Start: 01-05-2025 Patient discharge [facility] Start: 01-04-2025 [facility] Start: 01-03-2025 End: 01-03-2025 [facility] Start: 01-03-2025 End: 01-03-2025 Care regimes management [facility] Start: 01-03-2025 Notification of physician [facility] Start: 01-03-2025 [facility] Start: 01-02-2025 Application of intermittent pneumatic compression device [facility] Start: 01-02-2025 Ambulation without limitation [facility] Start: 01-02-2025 Assessment of risk of venous thromboembolism [facility] Start: 01-02-2025 Care regimes management [facility] Start: 01-02-2025 Insertion of catheter into peripheral vein [facility] Start: 01-02-2025 Measuring intake and output [facility] Start: 01-02-2025 Notification of physician [facility] Start: 01-02-2025 Providing care according to standard [facility] Start: 01-02-2025 Referral to occupational therapist [facility] Start: 01-02-2025 Referral to service [facility] Start: 01-02-2025 End: 01-02-2025 [facility] Start: 01-02-2025 Admission procedure [facility] Start: 01-02-2025 Verification routine [facility] Start: 01-02-2025 Hospital admission, emergency, from emergency room, medical nature [facility] Start: 01-02-2025 End: 01-02-2025 [facility] Start: 01-02-2025 Consultation [facility] Start: 01-02-2025 Patient referral to dietitian [facility] Start: 12-30-2024 Assay of magnesium [facility] Start: 12-30-2024 Assay of troponin quantitative [facility] Start: 12-30-2024 Basic metabolic panel calcium total [facility] Start: 12-30-2024 Blood count complete auto&auto difrntl wbc [facility] Start: 12-30-2024 Culture bacterial quanttative colony count urine [facility] Start: 12-30-2024 Culture bct isol&prsmptv id isolate ea urine [facility] Start: 12-30-2024 Ecg routine ecg w/least 12 lds trcg only w/o i&r [facility] Start: 12-30-2024 Emergency department visit high/urgent severity [facility] Start: 12-30-2024 Gluc bld gluc mntr dev cleared fda spec home use [facility] Start: 12-30-2024 Iv infusion hydration each additional hour [facility] Start: 12-30-2024 Iv infusion therapy/prophylaxis /dx 1st to 1 hr [facility] Start: 12-30-2024 Radiologic exam chest 2 views [facility] Start: 12-30-2024 Urnls dip stick/tablet reagent auto microscopy [facility] Start: 12-30-2024 [facility] Start: 12-30-2024 End: 12-30-2024 [facility] Start: 12-29-2024 End: 12-29-2024 Patient encounter procedure Endocrinology Comment on above: Diabetes maangement Diabetes maangement/ LVM OF SOONER APPOINTMENT 11/21 Start: 12-26-2024 [facility] Start: 12-26-2024 End: 12-26-2024 [facility] Start: 12-23-2024 End: 12-23-2024 Patient encounter procedure 12/23/2024 9:45 AM EDT Office Visit Vascular Medicine [address] [place] [address] Pamella Frances, RETAIL CENTER RECEPTIONIST.SCALPER OPERATOR [address] [place] [address] HOSPITAL FOLLOW UP V[facility] Medicine Comment on above: HOSPITAL FOLLOW UP Start: 12-12-2024 Hepatitis B Vaccine (2 of 2 - CpG 2-dose series) Hepatitis B Vaccine (2 of 2 - CpG 2-dose series) [facility] Start: 12-07-2024 End: 12-07-2024 Patient encounter procedure 12/07/2024 3:45 PM EDT Office Visit Urology [address] [address] Eva Pichardo MD [address] [place] [address] L ureteral stent, s/p staghorn calculi Urology Comment on above: L ureteral stent, s/p staghorn calculi Start: 12-07-2024 End: 12-07-2024 Patient encounter procedure 12/07/2024 11:20 AM EDT Office Visit [facility] [address] [place] [address] Ksenia Hoyos, RETAIL CENTER RECEPTIONIST.SCALPER OPERATOR [address] [place] [address] Hospital discharge, diabetes mx, need for repeat vaccines, and consideration of CT chest [facility] Comment on above: Hospital discharge, diabetes mx, need fo r repeat vaccines, and consideration of CT chest Start: 12-02-2024 Patient discharge [facility] Start: 12-01-2024 Consultation [facility] Start: 11-29-2024 [facility] Start: 11-28-2024 Enteric precautions [facility] Start: 11-28-2024 Application of intermittent pneumatic compression device [facility] Start: 11-28-2024 Following clinical pathway protocol [facility] Start: 11-28-2024 Assessment of risk of venous thromboembolism [facility] Start: 11-28-2024 Care regimes management [facility] Start: 11-28-2024 Insertion of catheter into peripheral vein [facility] Start: 11-28-2024 Measuring intake and output [facility] Start: 11-28-2024 Notification of physician [facility] Start: 11-28-2024 Providing care according to standard [facility] Start: 11-28-2024 Provision of activity privileges [facility] Start: 11-28-2024 Referral to occupational therapist [facility] Start: 11-28-2024 Referral to service [facility] Start: 11-28-2024 End: 11-28-2024 [facility] Start: 11-28-2024 Admission procedure [facility] Start: 11-28-2024 Inhalation therapy procedure [facility] Start: 11-28-2024 Patient referral to dietitian [facility] Start: 11-25-2024 Patient discharge [facility] Start: 11-24-2024 Administration of blood product [facility] Start: 11-23-2024 Admission procedure [facility] Start: 11-22-2024 [facility] Start: 11-21-2024 Care regimes management [facility] Start: 11-21-2024 Notification of physician [facility] Start: 11-21-2024 Following clinical pathway protocol [facility] Start: 11-21-2024 Ambulation without limitation [facility] Start: 11-21-2024 Assessment of risk of venous thromboembolism [facility] Start: 11-21-2024 Insertion of catheter into peripheral vein [facility] Start: 11-21-2024 Measuring intake and output [facility] Start: 11-21-2024 Providing care according to standard [facility] Start: 11-21-2024 Referral to occupational therapist [facility] Start: 11-21-2024 Referral to service [facility] Start: 11-21-2024 End: 11-21-2024 [facility] Start: 11-21-2024 Verification routine [facility] Start: 11-21-2024 Admission procedure [facility] Start: 11-21-2024 Hospital admission, emergency, from emergency room, medical nature [facility] Start: 11-21-2024 End: 11-21-2024 [facility] Start: 11-21-2024 Consultation [facility] Start: 11-18-2024 End: 11-18-2024 Patient encounter procedure 11/18/2024 3:30 PM EDT Office Visit Cardiology [address] [place] [address] [id number]; Liver Tx Evaluation; CONTACT PRECAUTIONS - C-Diff; last of the day Cardiology Comment on above: G81-25; Liver Tx Evaluation; CONTACT PRECAUTIONS - C-Diff; last of the day Start: 11-17-2024 End: 11-17-2024 Patient encounter procedure Pulmonary Medicine Comment on above: C-diff precuations/RA-2L/Reg WC Start: 11-15-2024 End: 11-15-2024 Patient encounter procedure 11/15/2024 1:15 PM EDT Office Visit Dentistry [address] [address] Izabela Harvey, DDS [address] [place] [address] BEDSIDE - [facility]ANSPLANT [facility] - [id number] - Consult Placed 11/12/24 Dentistry Comment on above: BEDSIDE - TRANSPLANT [place] - [id number] [phone] - Consult Placed 11/12/24 Start: 11-10-2024 Patient discharge [facility] Start: 11-09-2024 Consultation [facility] Start: 11-09-2024 Referral to gastroenterology service [facility] Start: 11-09-2024 Glucose measurement, body fluid [facility] Start: 11-08-2024 Urinary bladder residual urine study [facility] Start: 11-08-2024 [facility] Start: 11-05-2024 Removal of urinary catheter [facility] Start: 11-04-2024 [facility] Start: 10-31-2024 [facility] Start: 10-30-2024 Attention to flatus tube [facility] Start: 10-30-2024 Referral to gastroenterology service [facility] Start: 10-29-2024 Insertion of nasogastric tube [facility] Start: 10-29-2024 Bacteria identified in Blood by Culture Blood Culture [facility] Start: 10-29-2024 Referral to service [facility] Start: 10-29-2024 Application of intermittent pneumatic compression device [facility] Start: 10-29-2024 Following clinical pathway protocol [facility] Start: 10-29-2024 Cardiac monitoring [facility] Start: 10-29-2024 Catheterization of vein [facility] Start: 10-29-2024 Enteric precautions [facility] Start: 10-29-2024 Notification of physician [facility] Start: 10-29-2024 Vital signs measurements [facility] Start: 10-29-2024 [facility] Start: 10-29-2024 End: 10-29-2024 Consultation [facility] Start: 10-29-2024 Clostridioides difficile DNA [Presence] in Unspecified specimen by ANANTH with probe detection [facility] Start: 10-29-2024 Complete ultrasound of kidneys and bladder Kidney and Bladder [facility] Start: 10-29-2024 Lactoferrin [Presence] in Stool by Immunoassay [facility] Start: 10-29-2024 Nucleic acid assay [facility] Start: 10-29-2024 Admission procedure [facility] Start: 10-29-2024 End: 10-29-2024 Hospital admission, emergency, from emergency room, medical nature [facility] Start: 10-29-2024 End: 10-29-2024 [facility] Start: 10-29-2024 Patient referral to dietitian [facility] Start: 10-28-2024 [facility] Start: 10-28-2024 Bacteria identified in Urine by Culture Urine Culture [facility] Start: 09-14-2024 Patient discharge [facility] Start: 09-06-2024 Referral to service [facility] Start: 09-06-2024 Referral to occupational therapist [facility] Start: 09-06-2024 Referral to registered radiologic technologist [facility] Start: 09-06-2024 Consultation [facility] Start: 09-06-2024 Care planning and problem solving actions [facility] Start: 09-06-2024 [facility] Start: 09-05-2024 Application of intermittent pneumatic compression device [facility] Start: 09-05-2024 Continuous positive airway pressure ventilation treatment [facility] Start: 09-05-2024 Cardiac monitoring [facility] Start: 09-05-2024 Care regimes management [facility] Start: 09-05-2024 Catheterization of vein [facility] Start: 09-05-2024 Consultation [facility] Start: 09-05-2024 Notification of physician [facility] Start: 09-05-2024 Vital signs measurements [facility] Start: 09-05-2024 End: 09-05-2024 [facility] Start: 09-05-2024 Following clinical pathway protocol [facility] Start: 09-05-2024 Admission procedure [facility] Start: 09-05-2024 Patient referral to [facility] Start: 09-02-2024 Patient discharge [facility] Start: 08-31-2024 Care planning and problem solving actions [facility] Start: 08-30-2024 [facility] Start: 08-29-2024 Following clinical pathway protocol [facility] Start: 08-29-2024 Assessment of risk of venous thromboembolism [facility] Start: 08-29-2024 Care regimes management [facility] Start: 08-29-2024 Fall prevention [facility] Start: 08-29-2024 Inhalation therapy procedure [facility] Start: 08-29-2024 Insertion of catheter into peripheral vein [facility] Start: 08-29-2024 Measuring intake and output [facility] Start: 08-29-2024 Notification of physician [facility] Start: 08-29-2024 Patient referral to [facility]w. [facility] Start: 08-29-2024 Providing care according to standard [facility] Start: 08-29-2024 Provision of activity privileges [facility] Start: 08-29-2024 Referral to gastroenterology service [facility] Start: 08-29-2024 Referral to registered radiologic technologist [facility] Start: 08-29-2024 Referral to occupational therapist [facility] Start: 08-29-2024 Referral to service [facility] Start: 08-29-2024 Vital signs measurements [facility] Start: 08-29-2024 End: 08-29-2024 [facility] Start: 08-29-2024 Admission procedure [facility] Start: 08-21-2024 [facility] Start: 04-04-2024 COVID-19 Vaccine ( season) COVID-19 Vaccine ( season) [facility] Start: 04-04-2024 Influenza vaccination Influenza Vaccine (#1) [facility] Start: 2021 Prostate specific antigen measurement Prostate Cancer Screening Discussion [facility] Start: 2016 Zoster Vaccines (1 of 2) Zoster Vaccines (1 of 2) [facility] Start: 2011 Screening for malignant neoplasm of colon [facility] Start: 2001 Lipid panel Lipid Screening [facility] Start: 1988 DTaP/Tdap/Td Vaccines (1 - Tdap) DTaP/Tdap/Td Vaccines (1 - Tdap) [facility] Start: 1985 Hepatitis A Vaccine (1 of 2 - Risk 2-dose series) Hepatitis A Vaccine (1 of 2 - Risk 2-dose series) [facility] Start: 1985 Hepatitis A Vaccines (1 of 2 - Risk 2-dose series) Hepatitis A Vaccines (1 of 2 - Risk 2-dose series) [facility] Start: 1985 Hepatitis B Vaccine (1 of 3 - 19+ 3-dose series) Hepatitis B Vaccine (1 of 3 - 19+ 3-dose series) [facility] Start: 1985 Hepatitis B Vaccines (1 of 3 - 19+ 3-dose series) Hepatitis B Vaccines (1 of 3 - 19+ 3-dose series) [facility] Start: 1985 Pneumococcal vaccination Pneumococcal Vaccine (1 of 2 - PCV) [facility] Start: 1985 Pneumococcal Vaccine: 50+ (1 of 2 - PCV) Pneumococcal Vaccine: 50+ (1 of 2 - PCV) [facility] Start: 1985 Shingrix Vaccine (1 of 2) Shingrix Vaccine (1 of 2) [facility] Start: 1985 Urine microalbumin profile DTaP,Tdap,Td Vaccine (1 - Tdap) [facility] Start: 1984 Annual PCP Team Chronic Disease Visit Annual PCP Team Chronic Disease Visit [facility] Start: 1984 Anxiety Screening Anxiety Screening [facility] Start: 1984 Depression Screening Depression Screening [facility] Start: 1984 Hepatitis C screening Hepatitis C Screening [facility] Start: 1984 HIV screening HIV Screening [facility] Start: 1976 Glaucoma screening Diabetes: Retinopathy Screening [facility] Start: 1967 MMR Vaccines (1 of 1 - Standard series) MMR Vaccines (1 of 1 - Standard series) [facility] Start: 1966 Hemoglobin A1c measurement Diabetes: Hemoglobin A1C [facility] Start: 1966 HIV screening HIV Screening [facility] Start: 1966 Lipid panel Lipid Panel [facility] Start: 1966 Screening for malignant neoplasm of colon [facility] Start: 1966 Urine screening for protein Diabetes: Urine Protein Screening [facility] Start: 1966 Yearly Adult Physical Yearly Adult Physical [facility] Alanine aminotransfe rase [Enzymatic activity/volume] in Serum or Plasma [facility] End: 10-04-2024 Albumin [Mass/volume] in Body fluid [facility] Work Phone: Comment on above: Once (Lab) for 1 Occurrences starting until 10/04/2024 Once for 1 Occurrenc es starting 10/04/2024 until 10/04/2024 Albumin [Mass/volume ] in Serum or Plasma [facility] Alkaline phosphatase [Enzymatic activity/volume] in Serum or Plasma [facility] Anion gap in Serum o r Plasma [facility] End: 10-04-2024 Bacteria identified in Body fluid by Culture [facility] Work Phone: Comment on above: Once (Lab) for 1 Occurrences starting until 10/04/2024 Bilirubin, total measurement [facility] BUN/Creatinine ratio [facility] Calcium [Mass/volume ] in Serum or Plasma [facility] Carbon dioxide, tota l [Moles/volume] in Central venous blood [facility] End: 10-04-2024 Clostridioides difficile toxin A+B tcdA+tcdB genes [Presence] in Stool by ANANTH with probe detection C. difficile, PCR Microbiology STAT STAT (Lab) for 1 Occurrences starting 10/04/2024 until 10/04/2024 [facility] Work Phone: Comment on above: STAT (Lab) for 1 Occurrences starting until 10/04/2024 Creatinine [Mass/vol ume] in Serum or Plasma [facility] Cytology report of B carmelina fluid Cyto stain [facility] Erythrocyte mean corpuscular volume determination [facility] End: 10-04-2024 Extra Urine Toney Tube Extra Urine Toney Tube Lab Timed Once for 1 Occurrences starting 10/04/2024 until 10/04/2024 [facility] Work Phone: Comment on above: Once for 1 Occurrences starting 10/05/19 until 10/04/2024 End: 10-04-2024 Glucose [Mass/volume] in Body fluid [facility] Work Phone: Comment on above: Once (Lab) for 1 Occurrences starting until 10/04/2024 Once for 1 Occurrenc es starting 10/04/2024 until 10/04/2024 Glucose [Mass/volume ] in Serum or Plasma [facility] Glucose [Mass/volume ] in Serum or Plasma [facility] Hematocrit [Volume Fraction] of Blood [facility] Hemoglobin [Mass/vol ume] in Blood [facility] End: 10-04-2024 Hemoglobin.gastrointestin al.lower [Presence] in Stool by Immunoassay Fecal Occult Blood Immunoassy Microbiology STAT Once (Lab) for 1 Occurrences starting 10/04/2024 until 10/04/2024 [facility] Work Phone: Comment on above: Once (Lab) for 1 Occurrences starting until 10/04/2024 Hepatitis A virus Ig M Ab [Presence] in Serum [facility] Hepatitis B core ant ibody measurement, IgM type [facility] Hepatitis B surface antigen measurement [facility] Hepatitis C antibody measurement [facility] INR in Blood by Coagulation assay [facility] End: 10-04-2024 Lactate dehydrogenase [Enzymatic activity/volume] in Body fluid by Lactate to pyruvate reaction [facility] Work Phone: Comment on above: Once (Lab) for 1 Occurrences starting until 10/04/2024 Once for 1 Occurrenc es starting 10/04/2024 until 10/04/2024 Lactate dehydrogenas e [Enzymatic activity/volume] in Body fluid by Pyruvate to lactate reaction [facility] Lactic acid measurement [facility] Lactic acid measurement [facility] Leukocytes [#/volume ] in Blood [facility] Mean corpuscular hemoglobin concentration determination [facility] Mean corpuscular hemoglobin determination [facility] Measurement of renal function [facility] Neutrophil count [facility] Neutrophil percent differential count [facility] End: 10-04-2024 Non-gynecological cytology method study Cytology (Non-Gynecologic) Pathology and Cytology Routine Once (Lab) for 1 Occurrences starting 10/04/2024 until 10/04/2024 [facility] Service Area Work Phone: Comment on above: Once (Lab) for 1 Occurrences starting until 10/04/2024 Ova OR parasites identification [facility] Patient Education [facility] Work Phone: Patient referral [facility] Work Phone: End: 10-04-2024 pH of Body fluid [facility] Work Phone: Comment on above: Once (Lab) for 1 Occurrences starting until 10/04/2024 Platelets [#/volume] in Blood [facility] Potassium measurement [facility] End: 10-04-2024 Protein [Mass/volume] in Body fluid [facility] Work Phone: Comment on above: Once (Lab) for 1 Occurrences starting until 10/04/2024 Once for 1 Occurrenc es starting 10/04/2024 until 10/04/2024 Protein [Mass/volume ] in Body fluid [facility] Red blood cell count [facility] Red cell distributio n width determination [facility] Serum chloride measurement [facility] Sodium measurement [facility] End: 10-04-2024 Stool Pathogen Panel, PCR Stool Pathogen Panel, PCR Microbiology STAT Once (Lab) for 1 Occurrences starting 10/04/2024 until 10/04/2024 [facility] Work Phone: Comment on above: Once (Lab) for 1 Occurrences starting until 10/04/2024 Total protein measurement [facility] UA DIP, URINE (POC) UA DIP, URIN E (POC) Lab Routine Screening for genitourinary condition 1 Occurrences starting 12/07/2024 [facility] Work Phone: Comment on above: 1 Occurrences starting 12/07/2024 Urea nitrogen [Mass/volume] in Serum or Plasma [facility] End: 10-04-2024 Urinalysis complete W Reflex Culture panel - Urine [facility] Service Area Work Phone: Comment on above: Once (Lab) for 1 Occurrences starting until 10/04/2024 Once for 1 Occurrenc es starting 10/04/2024 until 10/04/2024 Urine culture [facility] Urine [facility] Urine [facility] Urine [facility] Urine culture [facility] Urine culture [facility] Urine culture [facility] Urine culture [facility] Immunizations Immunization Date Immunization Notes Care Provider Fa [facility] 11-16-2024 COVID-19 vaccine, ag e 12+ yr ([employer] [facility]) Jeremi Abreu RN Work Phone: [facility] 11-15-2024 pneumococcal conjuga te (PCV20) vaccine, 20 valent (PREVNAR 20) Marah Arauz QUALITY ASSURANCE ASSESSOR Work Phone: [facility] 11-14-2024 hepatitis A vaccine, adult dosage Marah Arauz QUALITY ASSURANCE ASSESSOR Work Phone: [facility] 11-14-2024 Hepatitis B vaccine (recombinant), CpG adjuvanted Marah Arauz QUALITY ASSURANCE ASSESSOR Work Phone: [facility] 11-14-2024 tetanus toxoid, redu danica diphtheria toxoid, and acellular pertussis vaccine, adsorbed Marah Claroswellington QUALITY ASSURANCE ASSESSOR Work Phone: [facility] 09-20-2024 influenza, seasonal, injectable Jeremi Abreu RN Work Phone: [facility] Work Phone: 09-15-2024 tuberculin skin test ; purified protein derivative solution, intradermal Jeremi Abreu RN Work Phone: [facility] Payers Date Payer Category Payer Self-pay 2024 Medicaid [id number] 2024 Medicaid [id number] 1965 Unknown [id number] Unknown [id number] Social History Date Type Detail Facility Start: 10-04-2024 End: 02-16-2025 Tobacco smoking status NHIS Ex-smoker [facility] Work Phone: History of tobacco use Current smoker [facility] Work Phone: History of tobacco use Cigarette Smoker [facility] Work Phone: Start: 10-04-2024 End: 11-11-2024 Tobacco use and exposure Smokeless tobacco non-user [facility] Work Phone: Start: 10-04-2024 Alcoholic beverage intake Ex-drinker (finding) [facility] Work Phone: Start: 10-04-2024 End: 11-15-2024 History of Social function [facility] Start: 10-04-2024 End: 11-15-2024 Tobacco use panel [facility] Start: 1965 Sex assigned at Not on file [facility] Work Phone: Start: 09-24-2024 End: 10-04-2024 Exposure to SARS-CoV-2 (event) Not sure [facility] Work Phone: Start: 10-11-2024 End: 11-21-2024 Sex Male (finding) [facility] Start: 1965 Sex Assigned At Male [facility] Start: 11-11-2024 End: 11-18-2024 Alcoholic beverage intake Lifetime non-drinker (finding) [facility] Has the [employer], or water [employer] threatened to shut off services in your home in past 12Mo No [facility] (I/We) worried wheth er (my/our) food would run out before (I/we) got money to buy more. Sometimes true [facility] In the past 12 month s, has lack of transportation kept you from medical appointments or from getting medications? Yes [facility] Medical Equipment Procedure Code Equipment Code Equipment Origin al Text Equipment Identifier Dates Cystoscopic insertion of stent ([id number]) [id number] FDA Start: 09-05-2024 Goals Date Patient Goal Desired Activity /State Functional Status Date Assessment Result Facility 01-31-2025 Functional status Ambulates [facility] Work Phone: 01-21-2025 Functional status Ambulates [facility] Work Phone: 01-05-2025 Functional status With Assist of [address] [facility] Work Phone: 01-05-2025 Functional status Ambulates;Bath room Privilege [facility] Work Phone: 12-02-2024 Functional status Ambulates [facility] Work Phone: 11-25-2024 Functional status Bedrest [facility] Work Phone: 11-18-2024 Are you deaf, or do you have serious difficulty hearing Yes 11/18/2024 10:13 AM EDT Anika Carolina RN Yes [facility] 11-18-2024 Are you blind, or do you have serious difficulty seeing, even when wearing glasses No 11/18/2024 10:13 AM EDT Anika Carolina, DAYSI No [facility] 11-18-2024 Do you have serious difficulty walking or climbing stairs Yes 11/18/2024 10:13 AM EDT Anika Carolina, DAYSI Yes [facility] 11-18-2024 Do you have difficul ty dressing or bathing Yes 11/18/2024 10:13 AM EDT Anika Carolina, DAYSI Yes [facility] 11-18-2024 Because of a physica l, mental, or emotional condition, do you have difficulty doing errands alone such as visiting a physician's office or shopping Yes 11/18/2024 10:13 AM EDAnika Gonzales, DAYSI Yes [facility] 11-11-2024 Functional status Bedpan [facility] Work Phone: 09-15-2024 Functional status Ambulates [facility] Work Phone: 09-02-2024 Functional status Bathroom Privilege [facility] Work Phone: Mental Status Date Assessment Result Facility 02-16-2025 Cognitive function Alert;Appropr iate;Follow s Commands;Drowsy [facility] Work Phone: 02-11-2025 Cognitive function Awake;Alert;Appropriat e [facility] Work Phone: 01-31-2025 Cognitive function Cooperative;A nxious;Talk ative [facility] Work Phone: 01-30-2025 Cognitive function Voice/Name [facility] Work Phone: 01-28-2025 Cognitive function Awake;Alert;A ppropriate; Follows Commands [facility] Work Phone: 01-21-2025 Cognitive function Voice/Name [facility] Work Phone: 01-05-2025 Cognitive function Voice/Name [facility] Work Phone: 01-02-2025 Cognitive function Awake;Alert;Appropriat e [facility] Work Phone: 12-30-2024 Cognitive function Awake;Alert;A ppropriate; Follows [facility] Work Phone: 12-02-2024 Cognitive function Voice/Name [facility] Work Phone: 11-25-2024 Cognitive function Voice/Name [facility] Work Phone: 11-18-2024 Because of a physica l, mental, or emotional condition, do you have serious difficulty concentrating, remembering, or making decisions Yes 11/18/2024 10:13 AM EDT Anika Carolina RN Yes [facility] 11-10-2024 Cognitive function Voice/Name [facility] Work Phone: 09-29-2024 Cognitive function Awake;Alert;A ppropriate; Follows [facility] Work Phone: 09-14-2024 Cognitive function Appropriate;Cooperativ e [facility] Work Phone: 09-14-2024 Cognitive function Voice/Name [facility] Work Phone: 09-02-2024 Cognitive function Voice/Name [facility] Work Phone: Clinical Notes 08-30-2024 to 02-16-2025 Note Date & Type Note Facility 02-16-2025 Discharge summary Note Date/Time February 16, 2025 6:39pm [facility] Medical Records Department [address] [place] [address] Emergency Department Summary 02/16/25 MR#: [id number] Acct: [id number] Name: FRANKLIN WIGGINS Rep #:[id number] : 1965 59 From: Alber Dunn MD PCP: Dr. Jerald Sherwood MD Status:REG E R Location: ED HPI History of Present Illness Chief Complaint: Abn Labs Informant: patient and other (Patient's ex-) Narrative Narrative: 59-year-old male history of diabetes liver cirrhosis with ascites and chronic anemia. States he was sent in today by his primary care physician due to abnormal labs. Patient is not really sure why. I called and spoke to his ex- who he lives with and she was not sure why it was sent in either. She states he is recently had some nausea and vomiting. Prior similar symptoms: Yes Recent Illness/Hospitalization: No [facility] Medical History VRE (vancomycin resistant enterococcus) culture positive Spinal [...] mL) sub cut QHS #15 mL 01/31/25 Un known Rx (3 mL) subcutaneous pen lactulose 10 gram/15 mL oral 10 g (15 mL) PO TID #3,00 0 mL 01/31/25 Unknown Rx solution linezolid 600 mg tablet 600 mg PO BID #5 tabs Unknown Rx pen needle, diabetic 31 gauge x #1,200 ea 01/31/25 Unk nown Rx 12/17 (Pen Needle) oxycodone 5 mg tablet 5 mg PO Q6H PRN pain 3 days #12 02/08/25 Unknown Rx tabs Allergy/AdvReac Type Severity Reaction Status Date / Time No Known Allergies Allergy Verified 02/16/25 17:20 Family History Mother Heart disease Hypertension CAD [...] not use ROS ROS ED ROS Narrative Recent nausea and vomiting. Per the patient's ex-. Constitutional Constitutional ED: Denies chills or fever(s) Eyes Eyes: Denies blurry vision ENT ENT ED: Denies ear pain Cardiovascular Cardiovascular: Denies chest pain Respiratory/Chest Respiratory/Chest: Denies cough or dyspnea Gastrointestinal Gastrointestinal: Reports nausea and vomiting; Denies abdominal pain Musculoskeletal Musculoskeletal: Denies arthralgias Integumentary Denies abscess Neurologic Neurologic: Denies headache(s) Psychiatric Psychiatric: Denies anxiety Endocrine Endocrinology: Denies cold intolerance Hematologic/Lymphatic Hematologic/Lymphatic: Reports none Allergic/Immunologic Allergic/Immunologic ED: Denies mouth swelling, tongue swelling or urticaria EXAM Physical Exam Narrative Exam Narrative: 59-year-old male vital signs are stable afebrile. Pulse ox 97% on room air. Hedoes not look septic or toxic. He looks chronically ill. He is very jaundiced. H EENT exam pupils round reactive light. Scleral icterus. Moist mucous membranes. No signs of trauma to his face or scalp. Nontender. Neck nontenderno lymphadenopathy. Back nontender. Lungs clear to auscultation bilaterally. Heart regular rhythm rate about 70 no murmur. Chest wall ribs nontender. Abdomen soft, nondistended normal bowel sounds without peritoneal signs. No abdominal tenderness. He does have ascites and ascitic wave. Moving all 4 extremities. Nontender no edema. Again he is jaundiced. Neurologically he is awake he is alert he knows where he is at he has no idea why he is here. He thought he was sent in for transfusion I explained to him his blood counts are where normally runs. Const Vital Signs: 02/16/25 17:20 02/16/25 18:30 Temperature 98 F Temperature Source Temporal Pulse Rate 72 Respiratory Rate 16 Respiratory Pattern Normal Blood Pressure 101/59 L Blood Pressure Mean 73 Pulse Ox 97 Oxygen Delivery Method Room Air Positive well nourished, well developed and obese; Negative for cachectic, contractures or unkempt General Appearance ED: well developed and NAD; Negative for unkempt, cachectic, contractures, cyanotic, diaphoretic or pallor Nutritional Appearance: obese; Negative for cachectic HEENT Reports moist mucous membranes Eyes PERRL and EOMs intact bilaterally General Eye ED: Yes scleral icterus Neck no lymphadenopathy, supple and no JVD Chest Wall inspection of chest normal and palpation of chest normal Resp normal respiratory effort and clear to auscultation bilaterally Cardio regular rate, regular rhythm, S1 normal heart sound, S2 normal heart sound and no murmurs GI normal to inspection, nondistended, normoactive bowel sounds, non-tender, non-distended and no masses GI Narrative: Abdominal ascites. Nontender. Palpation: soft; Negative for tender or guarding Back/Spine no CVA tenderness General Back: Negative for CVA tenderness Cervical Spine: Negative for cervical spine tenderness Thoracic Spine / Upper Back: Negative for thoracic spinal tenderness or paraspinal muscle tenderness Lumbar Spine / Lower Back: Negative for lumbar spinal tenderness Extremity normal to inspection General Extremety ED: Negative for edema or tenderness General Extremity: Negative for edema Neuro Neuro Narrative: Awake and alert. He knows that he is in the hospital. He is confused to why heis here. Sensorium / Orientation: alert Motor Exam: strength 5/5 throughout Psych mental status grossly normal Appearance: Negative for unkempt Skin no rashes or lesions noted, no wounds and skin turgor normal General Skin Exam: elasticity normal and jaundice; Negative for pallor Lesions: No lesion noted Trauma: Negative for abrasion Wounds: Negative for wounds noted MDM MDM MDM Narrative Medical decision making narrative: 59-year-old male known liver cirrhosis with ascites, chronic anemia and diabetes. Patient is unsure why he is here. His ex- who he lives with thought he was sent in for transfusion which I do not think is the case. I spoke the primary care physician on-call for the patient's primary care physician. He is unsure why it was sent to the emergency department. This may be secondary to mental status change from his elevated ammonia level which is 88. I will speak to the hospitalist about admitting him getting social servicesinvolved. They can also work on his elevated ammonia level. Patient may need to be going to hospice. I spoke to the hospitalist. He spoke to GI. GI plans to admit the patient through the hospitalist due to his elevated liver enzymes. Patient will be admitted to [facility]. History & Record Review Discussion w/independent historian: Patient and Family (Ex-.) Additional record(s) reviewed:: Prior inpatient record, Prior outpatient record,Prior ED visit and Prior labs Lab Data Attestation: I reviewed the patient's lab results. Lab results narrative: CBC shows a white count of 8. Hemoglobin 8.2 which is his baseline hematocrit 24. Platelets 106. Patient has chronic anemia. Electrolytes showed gap 12. BUN and creatinine twelve 1.3. Liver enzymes are elevated. Ammonia is elevated at 88. But his ammonia has been higher than this before. Discharge Plan Dx/Rx/DC Orders Clinical Impression: Cirrhosis of liver with ascites, Elevated liver enzymes, Hyperammonemia, Chronic anemia, History of diabetes mellitus Disposition Disposition: Acute Care Hospital [facility] What to do if you have Problems For any increased pain, shortness of breath, bleeding, nausea or vomiting, chestpain, or any unexpected problems, contact your Primary Care Provider. Call [facility] ([phone]) or report to the closest Emergency Room. Call 911 if necessary. 02/16/251838 <Electronically signed by Alber Dunn MD> Cosigner Signature (if applicable): CC: Dr. Jerald Sherwood MD ~ Signed [facility] Work Phone: 1(782) 394-652907-13-2025 Radiology Diagnostic study [facility]07-08-2025 Radiology Diagnostic study [facility]06-30-2025 Discharge summary Author Yaritza Leo [facility] Note Date/Time January 31, 2025 2:41 pm [facility] Medical Records Department [address] [place] [address] Discharge Summary 01/31/25 1217 MR#: [id number] Acct: [id number] Name: FRANKLIN WIGGINS Rep #:[id number] : 1965 59 From: Yaritza Leo DO PCP: Dr. Jerald Sherwood MD Status:ADM I N [facility] Prov[facility] Date of Admission: 01/28/25 Date [...] Spent on Discharge: 39 Hospital Course: Mr. Wiggins is a 59-year-old male who presented from local senior living facility to which she was discharged on [...] Final Vancomycin Resist. E. faecalis GNR lactose undercoater 01/28/25 06:15 Blood Culture (Wb) - Anticubital [...] Provider: Yaritza Leo Primary Care Provider: Jerald Sherwood Consulting Providers: Boone Izquierdo Instructions Additional Instructions [...] Self Care Charges/Coding Visit Charges Inpatient E&M: 20509 Disch Hosp >30min 01/31/25 1441 <Electronically signed by Yaritza Leo DO> Cosigner Signature (if applicable): CC: Dr. Yaritza Leo DO; Dr. Jerald Sherwood MD~ Signed [facility] Work Phone: 1(665) 253-686106-30-2025 [facility]06-30-2025 Hospital Discharge instructionsAdditional Instructions 1. Goal bowel movements with lactulose is 2-3 bowel movements daily. If you are having more than 3 bowel movements daily please decrease your lactulose from 3 times daily to 2 times daily 2. It is very important that you are compliant with your medications and utilize them as directed Date of Discharge: 01/31/25[facility] Work Phone: 1(382) 459-226706-29-2025 Progress note Author Yaritza Leo [facility] Note Date/Time January 30, 2025 1:37 pm [facility] Medical Records Department [address] [place] [address] Progress Note - Hospitalist 01/30/2528 MR#: [id number] Acct: [id number] Name: FRANKLIN WIGGINS Rep #:[id number] : 1965 59 From: Yaritza Leo DO PCP: Dr. Jerald Sherwood MD Status:ADM I N Location: [place] [address] Reason for Visit Reason for Visit: Fever [...] Neut % (Auto) 53.2, Lymph % (Auto) 20.0,Shannon % (Auto) 18.5 H, Eos % (Auto) [...] Preliminary GPC Poss Enterococcus sp GNR lactose undercoater 01/28/25 03:10 Mucosa - Nose SARS-CoV-2, Influenza [...] Full code Charges/Coding Visit Charges Inpatient E&M: 73434 Subs Hosp L2 01/30/25 133 <Electronically signed by Yaritza Leo DO> Cosigner Signature (if applicable): CC: ~ Signed [facility] Work Phone: 1(204) 456-267206-28-2025 Progress note Author Yaritza Leo [facility] Note Date/Time January 29, 2025 5:59 pm [facility] Medical Records Department [address] [place] [address] Progress Note - Hospitalist 01/29/25 0754 MR#: [id number] Acct: [id number] Name: FRANKLIN WIGGINS Rep #:[id number] : 1965 59 From: Yaritza Leo DO PCP: Dr. Jerald Sherwood MD Status:ADM I N Location: [place] [address] Reason for Visit Reason for Visit: Fever [...] (Auto) 60.8, Lymph % (Auto) 17.1 L, Shannon % (Auto) 15.2 H, Eos % (Auto) [...] Full code Charges/Coding Visit Charges Inpatient E&M: [id number] Subs Hosp L2 01/29/254 <Electronically signed by Yaritza Leo DO> Cosigner Signature (if applicable): CC: ~ Signed [facility] Work Phone: 1(380) 396-289006-27-2025 History and physical note Author Boone Izquierdo [facility] Note Date/Time January 28, 2025 7:26 am [facility] Medical Records Department [address] [place] [address] H&P Exam - Hospitalist 01/28/25 0710 MR#: [id number] Acct: [id number] Name: GEREMIASFRANKLINKarma CASEY Rep #:[id number] : 1965 59 From: Boone Izquierdo DO PCP: Dr. Jerald Sherwood MD Status:REG E R Location: ED HPI - General General Date of Service: 01/28/25 Chief Complaint: Fever. HPI Narrative FRANKLIN WIGGINS, is a 59 M who presents with fever from the custodial. This ashely 59-year-old male with cirrhosis presents with fever and confusion from the custodial. In emergency room, he was afebrile but [...] stable in the emergencyroom without fluid resuscitation. [facility] Medical History (Updated 01/28/25 @ 07:16 [...] mg tablet 40 mg PO DAILY diuretic 0411/28/24 History magnesium oxide 400 mg (241.3 mg [...] (Auto) 57.8, Lymph % (Auto) 18.8 L, Shannon % (Auto) 16.7 H, Eos % (Auto) [...] Clarity Cloudy, Urine pH 8.0, Ur Specific Amanda 1.015, Urine Protein 100 H, Urine Glucose [...] bilateral basilar atelectatic pulmonary changes. Reading Location[facility] Abdomen/Pelvis CT 01/28/25 05:12 IMPRESSION: Cirrhosis, collateral [...] correlate for possible hepatic colopathy. Reading Location: [facility] Assessment & Plan Assessment/Plan (1) Hepatic encephalopathy: [...] be continued. Charges/Coding Visit Charges Inpatient E&M: 80841 Init Hosp L3 01/28/25 0726 <Electronically signed by Boone Izquierdo DO> Cosigner Signature (if applicable): CC: Dr. Boone Izquierdo DO; Dr. Jerald Sherwood MD~ Signed [facility] Work Phone: 1([phone]) [phone] History and physical note Author Boone [facility] Note Date/Time January 28, 2025 7:26 am [facility] Medical Records Department [address] [place] [address] H&P Exam - Hospitalist 01/28/25 0710 MR#: [id number] Acct: [id number] Name: FRANKLIN WIGGINS Rep #:[id number] : 1965 59 From: Boone Izquierdo DO PCP: Dr. Jerald Sherwood MD Status:REG E R Location: ED HPI - General General Date of Service: 01/28/25 Chief Complaint: Fever. HPI Narrative FRANKLIN WIGGINS, is a 59 M who presents with fever from the custodial. This ashely 59-year-old male with cirrhosis presents with fever and confusion from the custodial. In emergency room, he was afebrile but [...] stable in the emergencyroom without fluid resuscitation. [facility] Medical History (Updated 01/28/25 @ 07:16 [...] (Auto) 57.8, Lymph % (Auto) 18.8 L, Shannon % (Auto) 16.7 H, Eos % (Auto) [...] Clarity Cloudy, Urine pH 8.0, Ur Specific Amanda 1.015, Urine Protein 100 H, Urine Glucose [...] correlate for possible hepatic colopathy. Reading Location: [place] [address] Assessment & Plan Assessment/Plan (1) Hepatic encephalopathy: [...] be continued. Charges/Coding Visit Charges Inpatient E&M: 07715 Init Hosp L3 01/28/25 0726 <Electronically signed by Boone Izquierdo DO> Cosigner Signature (if applicable): CC: Dr. Boone Izquierdo DO; Dr. Jerald Sherwood MD~ Signed [facility] Work Phone: [phone] Discharge summary Author Danny Hutton [facility] Note Date/Time January 28, 2025 6:59 am [facility] Medical Records Department [address] [place] [address] Emergency Department Summary 01/28/25 MR#: [id number] Acct: [id number] Name: FRANKLIN WIGGINS Rep #:[id number] : 1965 59 From: Danny christy DO PCP: Dr. Jerald Sherwood MD Status:REG E R Location: ED HPI History of Present Illness Chief Complaint: Confusion Narrative Narrative: Chief complaint and HPI: Fever and confusion. 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 History taken by [...] diarrhea, constipation, dysuria. I personally spoke with [facility] staff. The nurse is new to taking [...] Alert, grossly intact, sensation intact Psych: Cooperative [facility] Medical History Umbilical hernia Chronic hyponatremia Weakness [...] liver 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 presents from [facility] for fever and confusion. Patient is a poor historian therefore history taken by EMS as well as [facility] nurse. Reported patient developed a fever of 101 ?F this evening prior to arrival. No meds were given. Nurse as well as myself does not know the patient's baseline mental status although nursing staff here that note is the patient states that wax and wanes. Nurse there states that multiple techs felt that the patient wasconfused at [facility] and that he was asking about people [...] (Auto) 57.8 Lymph % (Auto) 18.8 L Shannon % (Auto) 16.7 H Eos % (Auto) [...] Color Urine Clarity Urine pH Ur Specific Amanda Urine Protein Urine Glucose (UA) Urine Ketones Urine Occult Blood Urine Nitrite Urine Bilirubin Urine Urobilinogen Ur Leukocyte Esterase Urine RBC Urine WBC Ur Squamous Epith Cells Urine Bacteria Urine Mucus 01/28/25 01/28/25 04:33 04:58 WBC RBC Hgb Hct MCV MCH MCHC RDW Std Deviation RDW Coeff of Francis Plt Count MPV Immature Gran % (Auto) Neut % (Auto) Lymph % (Auto) Shannon % (Auto) Eos % (Auto) Baso % [...] Clarity Cloudy Urine pH 8.0 Ur Specific Amanda 1.015 Urine Protein 100 H Urine Glucose [...] correlate for possible hepatic colopathy. Reading Location: [facility] Discharge Plan Triage Chief Complaint: Confusion ED [...] MD [Primary Care Provider] - Print Language: Dominican What to do if you have Problems For any increased pain, shortness of breath, bleeding, nausea or vomiting, chestpain, or any unexpected problems, contact your Primary Care Provider. Call [facility] ([phone]) or report to the closest Emergency Room. Call 911 if necessary. 01/28/25 0659 <Electronically signed by Danny Hutton DO> Cosigner Signature (if applicable): CC: Dr. Jerald Sherwood MD ~ Signed [facility] Work Phone: [phone] Radiology Diagnostic study [facility]06-27-2025 Radiology Diagnostic study [facility]06-20-2025 Discharge summary Author Anurag Irene [facility] Note Date/Time January 21, 2025 11:1 2am [facility] Medical Records Department [address] [place] [address] Transfer to [facility] MR#: [id number] Acct: [id number] Name: FRANKLIN WIGGINS Rep #:[id number] : 1965 59 From: Anurag Lucero PCP: YG Pena Status:ADM I N Certification of patient admission REQUIRED AT TIME OF ADMISSION. I CERTIFY THAT POST-HOSPITAL ECF SERVICES ARE REQUIRED TO BE GIVEN ON AN IN-PATIENT BASIS BECAUSE OF THE ABOVE NAMED PATIENT'S NEED FOR FCI CARE ON A CONTINUING BASIS FOR THE [...] (Auto) 63.5, Lymph % (Auto) 16.3 L, Shannon % (Auto) 11.9 H, Eos % (Auto) [...] Follow-up in [facility] hepatology/GI. Discharge Orders/Prescriptions Prescriptions: New spironolactone 25 [...] 0RF Referrals / Follow Up: Josy Elias, MECHANICAL COMMISSIONING ENGINEER-C [Primary Care Provider] - Within 2 Weeks Disposition Disposition (needs filled in before D/C Order can be placed): [facility] 01/21/25 1112 <Electronically signed by Anurag Irene MD> Cosigner Signature (if applicable): CC: MECHANICAL COMMISSIONING ENGINEER-C Josy Elias; Dr. Aleyda Bautista MD; Dr. Yaritza Leo DO; Dr. Cielo Tovar MD; Dr. Jefferson Malave MD ~ [facility] Work Phone: [phone] 570-396706-20-2025 Discharge summary Author Anurag Irene [facility] Note Date/Time January 21, 2025 1:29 pm [facility] Medical Records Department [address] [place] [address] [place] [address] Discharge Summary 01/21/25 1112 MR#: [id number] Acct: [id number] Name: FRANKLIN WIGGINS Rep #:[id number] : 1965 59 From: Anurag Lucero PCP: YG Pena Status:ADM I N Location: [place] [address] Providers Date of Admission: 01/09/25 Date of Discharge: 01/21/25 Primary Care Physician: YG Pena Consultations 01/09/25 15:46 Consult: Restaurant Supervisor / Pulmonary Medicine Routine Consulting Provider: Intensivists/Pulmonary [...] Sepsis resolved. Urine culture shows is not Amry albicans. That mightbe commensal/colonization. Blood culture negative [...] (Auto) 63.5, Lymph % (Auto) 16.3 L, Shannon % (Auto) 11.9 H, Eos % (Auto) [...] solution (Constulose) 15 ml PO TID PRN nvfqqgyqveho01/27/25 L.acidophil,salivari-Bifido bifidum-Strep thermoph 175 mg capsule 1 [...] Follow-up in [facility] hepatology/GI. Discharge Orders/Prescriptions Prescriptions: New spironolactone 25 [...] in before D/C Order can be placed): [facility] Charges/Coding Visit Charges Inpatient E&M: 86291 Disch Hosp >30min 01/21/25 1117 <Electronically signed by Anurag Irene MD> Cosigner Signature (if applicable): CC: YG Elisa; Dr. Anurag Irene MD~ Signed ADDENDUM by Dr. Anurag Irene MD on 01/21/25 at 1329 Addendum Prescription for oxycodone total 7 tablets ordered. OARSS reviewed. No unintentional overdose risk score, 0. Norc score 0 point 01/21/25 1329<Electronically signed by Anurag Irene MD> Cosigner Signature (if applicable): cc: YG Elias; Dr. Anurag Irene MD ~* Signed [facility] Work Phone: 1(128) [phone] [facility]06-19-2025 Progress note Author Anurag Irene [facility] Note Date/Time January 20, 2025 2:40 pm [facility] Medical Records Department [facility] [place] [address] [address] Progress Note - Hospitalist 01/20/25 1436 MR#: [id number] Acct: [id number] Name: FRANKLIN WIGGINS Rep #:[id number] : 1965 59 From: Anurag Lucero PCP: YG Pena Status:ADM I N Location: [place] [address] Reason for Visit Reason for Visit: Diagnoses [...] (Auto) 63.5, Lymph % (Auto) 16.3 L, Shannon % (Auto) 11.9 H, Eos % (Auto) [...] (Auto) 63.5, Lymph % (Auto) 16.3 L, Shannon % (Auto) 11.9 H, Eos % (Auto) [...] 167 H Charges/Coding Visit Charges Inpatient E&M: 30938 Subs Hosp L2 01/20/25 1440 <Electronically signed by Anurag Irene MD> Cosigner Signature (if applicable): CC: ~ Signed [facility] Work Phone: [phone] 246-355006-18-2025 Progress note Author Anurag Irene [facility] Note Date/Time January 19, 2025 4:46 pm [facility] Medical Records Department [address] [place] [address] Progress Note - Hospitalist 01/19/25918 MR#: [id number] Acct: [id number] Name: FRANKLIN WIGGINS Rep #:[id number] : 1965 59 From: Anurag Lucero PCP: YG Pena Status:ADM I N Location: [place] [address] Reason for Visit Reason for Visit: Diagnoses [...] WBCs % 75.6, Fluid Neutrophils 20, Fluid [place]01, Fluid Monocytes 3, Fluid Macrophages 46, Fluid [...] (Auto) 67.7, Lymph % (Auto) 13.6 L, Shannon % (Auto) 11.0 H, Eos % (Auto) [...] gas. Correlate with surgical history. Reading Location: [id number] Paracentesis Ultrasound 01/18/25 13:08 IMPRESSION: Right lower quadrant marker was applied for paracentesis with drain the fluid volume of 2650 cc. [facility] Physical Exam Narrative Seen and examined Discussed [...] WBCs % 75.6, Fluid Neutrophils 20, Fluid Ylnojilwyip26, Fluid Monocytes 3, Fluid Macrophages 46, Fluid [...] (Auto) 67.7, Lymph % (Auto) 13.6 L, Shannon % (Auto) 11.0 H, Eos % (Auto) [...] 198 H Charges/Coding Visit Charges Inpatient E&M: 24865 Subs Hosp L2 01/19/25 1646 <Electronically signed by Anurag Irene MD> Cosigner Signature (if applicable): CC: ~ Signed [facility] Work Phone: [phone]) 474-105406-18-2025 Radiology Diagnostic study [facility]06-17-2025 Radiology Diagnostic study [facility]06-17-2025 Progress note Author Anurag Irene [facility] Note Date/Time January 18, 2025 1:14 pm [facility] Medical Records Department [address] [place] [address] Progress Note - Hospitalist 01/18/25 1302 MR#: [id number] Acct: [id number] Name: FRANKLIN WIGGINS Rep #:[id number] : 1965 59 From: Anurag Lucero PCP: YG Pena Status:ADM I N Location: [place] [address] Reason for Visit Reason for Visit: Diagnoses [...] (Auto) 68.1, Lymph % (Auto) 14.0 L, Shannon % (Auto) 10.0, Eos % (Auto) 6.1 [...] prophylaxis: SCDs Charges/Coding Visit Charges Inpatient E&M: 04199 Subs Hosp L2 01/18/25 1314 <Electronically signed by Anurag Irene MD> Cosigner Signature (if applicable): CC: ~ Signed [facility] Work Phone: [phone] 449-687006-17-2025 Consult note Author Mohit Santos [facility] Note Date/Time January 18, 2025 12:4 9pm [facility] Medical Records Department [address] [place] [address] Pre-Anesthesia Evaluation 01/18/25 1246 MR#: [id number] Acct: [id number] Name: FRANKLIN WIGGINS Rep #:[id number] : 1965 59 From: Mohit Santos MD PCP: YG Pena Status:ADM I N Y Race: C Location: [place] [address] 2-1 ASA Classification* ASA Classification ASA Classification: [...] 01/18/25 TSH 0.826 uIU/mL (0.358-3.740) 09/04/24 23:07 02/08/28 COAG PT 22.9 SECONDS (11.7-14.9) H 01/18/25 05:21 06/02/25 Pre-Assessment Diagnosis/Proposed Procedure Planned Operative Procedure(s): Lumbar steroid injection L1/L2 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 - office nurse practitioner: 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 - office nurse practitioner Hx Hospitalization Any Problems With Anesthesia No [...] am of surgery tylenol PONV PONV - office nurse practitioner: PONV - office nurse practitioner Female HX of Motion Sickness HX of N/V After Surgery Non-Smoker Duration of Surgery greater than 60 minutes Number of Risk Factors PONV Score Height & Weight Height & Weight: Anesthesia: Height & Weight Height 5 ft 9 in 01/17/25 14:51 Weight: 111.3 kg 01/18/25 08:57 Body Mass Index (BMI) 36.2 01/18/25 03:51 Respiratory Assessment Respiratory Assessment - office nurse practitioner: Respiratory Tract Infection Hx - office nurse practitioner Hx Respiratory Tract Infection No 01/18/25 09:01 STOP Sleep Apnea STOP Sleep Apnea - office nurse practitioner: STOP Sleep Apnea - office nurse practitioner Hx Hypertension No 01/10/25 10:46 Hx Sleep [...] Tobacco Use History Tobacco Use History - office nurse practitioner: Tobacco Use History - office nurse practitioner Tobacco Use Smoking Status Former smoker 01/10/25 09:20 Hx Tobacco Use Yes 01/09/25 15:31 Years Smoking Packs Smoked per Day Smoking Cessation Date was Yes - quit smoking within 15 01/09/25 15:31 within the last 15 years years Hx Smoking Cessation Date 05/04/24 01/09/25 15:31 Hx Smoking Cessation Counseling Hematologic Medial History Hematologic Hx - office nurse practitioner: 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 Hx of Blood Transfusion No 01/09/25 15:31 [...] confused, unrespo /Reproduction History /Reproductive History - office nurse practitioner: /Reproductive Hx- office nurse practitioner Hx Now No 01/18/25 09:01 Gestational Age [...] 500 Mg Tablet PO Not Given BID [facility] Atorvastatin Calcium 40 mg 01/10/25 10:00 01/17/25 09:19 Atorvastatin Calcium 40 Mg Tablet PO 40 mg DAILY [facility] Administration Calcium/Vitamin D 1 tablet 01/10/25 10:00 01/18/25 11:32 Calcium Carb/Vitamin D 1 Tablet Tablet PO Not Given DAILY [facility] Cyclobenzaprine HCl 10 mg 01/09/25 22:00 01/17/25 21:05 Cyclobenzaprine Hcl 10 Mg Tablet PO 10 mg QHS [facility] Administration Ferrous Sulfate 325 mg 01/10/25 12:00 01/18/25 11:33 Ferrous Sulfate 325 Mg Tablet PO Not Given Q48@1200 [facility] Folic Acid 1 mg 01/10/25 08:00 01/18/25 11:31 Folic Acid 1 Mg Tablet PO Not Given BREAKFAST [facility] Sodium Chloride 250 mls @ 15 mls/hr 01/09/25 15:34 IV .[id number] PRN Saline Flush Sodium Chloride 250 mls @ 15 mls/hr 01/09/25 15:34 IV .[id number] PRN Additional IVPB Infusion Sodium Chloride 1,000 mls @ 15 mls/hr 01/18/25 12:45 IV .Q48H [facility] Insulin Glargine 20 unit 01/09/25 22:00 01/17/25 21:05 Insulin Glargine-Yfgn 100 Unit/Ml Pen SC 20 unit QHS [facility] Administration Insulin Glargine 20 unit 01/10/25 10:00 01/18/25 11:31 Insulin Glargine-Yfgn 100 Unit/Ml Pen SC Not Given DAILY [facility] Insulin Human Lispro 0 unit 01/09/25 16:00 01/18/25 11:33 Insulin Lispro 100 Unit/Ml Insuln.Pen SC [facility] Protocol Lactulose 10 gm 01/09/25 15:46 01/12/25 14:34 Lactulose 20 Gm/30 Ml Udc PO 10 gm TID PRN Administration constipation Magnesium Chloride 128 mg 01/10/25 10:00 01/18/25 11:31 Magnesium Chloride 64 Mg Delay Rel.Tablet PO Not Given DAILY [facility] Midodrine 10 mg 01/09/25 17:00 01/18/25 12:07 [...] 20 Mg Tablet PO Not Given DAILY [facility] Potassium Phos/Sodium Phos 1 packet 01/09/25 22:00 01/18/25 11:32 Na Biphos/Potassium Phosphate Packet PO Not Given BID [facility] Rifaximin 550 mg 01/09/25 22:00 01/17/25 21:06 Rifaximin 550 Mg Tablet PO 550 mg BID [facility] Administration Sodium Bicarbonate 650 mg 01/09/25 22:00 01/18/25 11:32 Sodium Bicarbonate 650 Mg Tablet PO Not Given BID [facility] Sodium Chloride 10 - 40 ml 01/09/25 15:34 01/18/25 08:33 0.9% Saline Lock 10 Ml Syringe IV 20 ml UD PRN Administration SALINE FLUSH Thiamine HCl 100 mg 01/10/25 10:00 01/18/25 11:32 Thiamine Hydrochloride 100 Mg Tablet PO Not Given DAILY [facility] Medical History (Updated 01/17/25 @ 16:52 [...] MD Cosigner Signature: Date CC: ~ Signed [facility] Work Phone: [phone]) 879-855206-16-2025 Consult note Author Buster Carimchael [facility] Note Date/Time January 17, 2025 4:57 pm [facility] Medical Records Department [address] [place] [address] Consultation 01/17/25 1522 MR#: [id number] Acct: [id number] Name: FRANKLIN WIGGINS Rep #:[id number] : 1965 59 From: Buster brewster MD PCP: Josy Elias MECHANICAL COMMISSIONING ENGINEER-C Status:ADM I N Location: [place] [address] Assessment & Plan Assessment/Plan (1) Spinal stenosis, [...] Consultation: Severe back pain HPI Narrative: FRANKLIN WIGGINS, is a 59 M who is in [...] be 8- 10/10 in severity when moving. [facility] Medical History (Updated 01/17/25 @ 16:52 [...] (Auto) 67.2, Lymph % (Auto) 12.9 L, Shannon % (Auto) 11.5 H, Eos % (Auto) 6.8 H, Baso % (Auto) 0.5, Absolute Neuts (auto) 5.7, Absolute Lymphs (auto) 1.09, Nucleated RBC % 0 01/17/25 06:28: POC Glucose 173 H 01/17/25 11:26: POC Glucose 141 H 01/17/25 1657 <Electronically signed by Buster Carmichael MD> Cosigner Signature (if applicable): CC: YG Elias~ Signed [facility] Work Phone: [phone] 389-318306-16-2025 Progress note Author Anurag Irene [facility] Note Date/Time January 17, 2025 2:32 pm [facility] Medical Records Department [address] [place] [address] Progress Note - Hospitalist 01/17/25 1420 MR#: [id number] Acct: [id number] Name: FRANKLIN WIGGINS Rep #:[id number] : 1965 59 From: Anurag Lucero PCP: YG Pena Status:ADM I N Location: [place] [address] Reason for Visit Reason for Visit: Diagnoses [...] (Auto) 67.2, Lymph % (Auto) 12.9 L, Shannon % (Auto) 11.5 H, Eos % (Auto) [...] prophylaxis: SCDs Charges/Coding Visit Charges Inpatient E&M: 19045 Subs Hosp L2 01/17/25 1432 <Electronically signed by Anurag Irene MD> Cosigner Signature (if applicable): CC: ~ Signed [facility] Work Phone: [phone]) 288-669806-16-2025 [facility]06-15-2025 Progress note Author Cielo Tovar [facility] Note Date/Time January 16, 2025 3:37 pm [facility] Medical Records Department [address] [place] [address] Progress Note 01/16/25 1236 MR#: [id number] Acct: [id number] Name: FRANKLIN WIGGINS Rep #:[id number] : 1965 59 From: Cielo Tovar MD PCP: YG Pena Status:ADM I N Location: [place] [address] Subjective Subjective Patient seen and examined. He [...] (Auto) 64.9, Lymph % (Auto) 14.6 L, Shannon % (Auto) 12.7 H, Eos % (Auto) [...] at home. Charges/Coding Visit Charges Inpatient E&M: 11923 Subs Hosp L2 01/16/25 4847 <Electronically signed by Cielo Tovar MD> Cielo Tovar MD Cosigner Signature (if applicable): CC: ~ Signed [facility] Work Phone: [phone] Consult note Author Buster Hahn [facility] Note Date/Time January 15, 2025 6:46 pm [facility] Medical Records Department [address] [place] [address] Pharmacokinetic/Renal -Consult 01/15/25 1846 MR#: [id number] Acct: [id number] Name: FRANKLIN WIGGINS Rep #:[id number] : 1965 59 From: Buster Lopes ing [facility] PCP: Josy Elias NP-C Status:ADM I N Y Location: [place] [address] Consult Antibiotic Management Pharmacy has been consulted [...] 01/15/25 1846 <Electronically signed by Buster Nieves [facility]> Date _ Buster Hahn [facility] Cosigner Signature (if applicable): Date CC: ~ Signed [facility] Work Phone: [phone] 528-578006-14-2025 Progress note Author [facility] Note Date/Time January 15, 2025 6:29 pm [facility] Medical Records Department [address] [place] [address] Progress Note 01/15/25 1321 MR#: [id number] Acct: [id number] Name: FRANKLIN WIGGINS Rep #:[id number] : 1965 59 From: Cielo Tovar MD PCP: YG Pena Status:ADM I N Location: [place] [address] Subjective Subjective Patient seen and examined. He [...] 10:08 01/15/25 10:08 01/15/25 10:08 01/15/25 10:08 06/14/25 10:08 Oxygen Delivery Method Room Air Weight: [...] (Auto) 65.6, Lymph % (Auto) 13.2 L, Shannon % (Auto) 13.6 H, Eos % (Auto) [...] at multiple levels, as described. Reading Location: [place] [address] Physical Exam Const alert, oriented x3 and [...] at home. Charges/Coding Visit Charges Inpatient E&M: 88355 Subs Hosp L2 01/15/259 <Electronically signed by Cielo Tovar MD> Cielo Tovar MD Cosigner Signature (if applicable): CC: ~ Signed [facility] Work Phone: [phone]) 474-436806-13-2025 Consult note Author Andreia Carvalho [facility] Note Date/Time January 14, 2025 8:04 pm [facility] Medical Records Department [address] [place] [address] Pharmacokinetic/Renal -Consult 01/14/252002 MR#: [id number] Acct: [id number] Name: FRANKLIN WIGGINS Rep #:[id number] : 1965 59 From: Andreia Carvalho PCP: YG Pena Status:ADM I N Y Location: [place] [address] Consult Antibiotic Management Pharmacy has been consulted [...] Signature (if applicable): Date CC: ~ Signed [facility] Work Phone: [phone]) 105-811806-13-2025 Progress note Author Cielo [facility] [facility] Note Date/Time January 14, 2025 5:19 pm [facility] Medical Records Department [address] [place] [address] Progress Note 01/14/251705 MR#: [id number] Acct: [id number] Name: FRANKLIN WIGGINS Rep #:[id number] : 1965 59 From: Cielo Tovar MD PCP: YG Pena Status:ADM I N Location: [place] [address] Subjective Subjective Patient seen and examined. He [...] (Auto) 65.3, Lymph % (Auto) 13.5 L, Shannon % (Auto) 14.3 H, Eos % (Auto) [...] at multiple levels, as described. Reading Location: [place] [address] Thoracic Spine MRI 01/13/25 10:30 IMPRESSION: Abnormal marrow signal at T12 and L1. No acute compression deformity identified. Can not exclude metastatic involvement of these 2 vertebral bodies. Degenerative changes in the remainder of the lumbar spine. There is mild spinal stenosis at the level of T10-T11 and T11-T12. The patient could not tolerate postcontrast imaging. There is no cord compression Reading Location: [facility] Chest CT 01/14/25 08:06 IMPRESSION: 1. Partially visualized severe degenerative changes of T11-T12 with areas of erosive changes and lytic lesions. Metastasis can not be excluded. 2. Cirrhosis and ascites. 3. Mild lung emphysema. No suspicious nodules or focal consolidation. Reading Location: [facility] Physical Exam Const alert, oriented x3 [...] medically stable. Charges/Coding Visit Charges Inpatient E&M: 46595 Subs Hosp L2 01/14/25 4946 <Electronically signed by Cielo Tovar MD> Cielo Tovar MD Cosigner Signature (if applicable): CC: ~ Signed [facility] Work Phone: 1(312) 661-508906-13-2025 Radiology Diagnostic study [facility]06-12-2025 Progress note Author [facility]o [facility] Note Date/Time January 13, 2025 6:28 pm [facility] Medical Records Department [address] [place] [address] Progress Note 01/13/25 0567 MR#: [id number] Acct: [id number] Name: FRANKLIN WIGGINS Rep #:[id number] : 1965 59 From: Cielo Tovar MD PCP: Josy Elias MECHANICAL COMMISSIONING ENGINEER-C Status:ADM I N Location: [place] [address] Subjective Subjective Patient seen and examined. He [...] (Auto) 65.6, Lymph % (Auto) 14.4 L, Shannon % (Auto) 13.7 H, Eos % (Auto) [...] medically stable. Charges/Coding Visit Charges Inpatient E&M: 31421 Subs Hosp L2 01/13/25 9096 <Electronically signed by Cielo Tovar MD> Cielo Tovar MD Cosigner Signature (if applicable): CC: ~ Signed [facility] Work Phone: 1(150) 288-649206-12-2025 Consult note Author Francheska Montoya [facility] Note Date/Time January 13, 2025 9:36 am [facility] Medical Records Department [address] [place] [address] Pharmacokinetic/Renal -Consult 01/13/25 0934 MR#: [id number] Acct: [id number] Name: FRANKLIN WIGGINS Rep #:[id number] : 1965 59 From: Francheska Mcfarlane PCP: Josy Elias NP-C Status:ADM I N Y Location: [place] [address] Consult Antibiotic Management Pharmacy has been consulted [...] Signature (if applicable): Date CC: ~ Signed [facility] Work Phone: 1(145) 540-231106-11-2025 Progress note Author [facility] Note Date/Time January 12, 2025 4:51 pm [facility] Medical Records Department [address] [place] [address] Progress Note 01/12/25 1646 MR#: [id number] Acct: [id number] Name: FRANKLIN WIGGINS Rep #:[id number] : 1965 59 From: Cielo Tovar MD PCP: YG Pena Status:ADM I N Location: [place] [address] Subjective Subjective Patient seen and examined. He [...] (Auto) 68.2, Lymph % (Auto) 11.6 L, Shannon % (Auto) 12.1 H, Eos % (Auto) [...] his facility. Charges/Coding Visit Charges Inpatient E&M: 98191 Subs Hosp L2 01/12/25 1651 <Electronically signed by Cielo Tovar MD> Cielo Tovar MD Cosigner Signature (if applicable): CC: ~ Signed [facility] Work Phone: [phone] 481-862806-11-2025 Consult note Author Dilcia Vanessa [facility] Note Date/Time January 11, 2025 10:4 8pm [facility] Medical Records Department [address] [place] [address] Pharmacokinetic/Renal -Consult 01/11/251942 MR#: [id number] Acct: [id number] Name: FRANKLIN WIGGINS Rep #:[id number] : 1965 59 From: Dilcia Vanessa PCP: YG Pena Status:ADM I N Y Location: [place] [address] Consult Antibiotic Management Pharmacy has been consulted [...] 01/13/2025 @0600 01/11/251944 <Electronically signed by Dilcia montalvo> Date _ Dilcia Vanessa 01/11/258 <Electronically signed by Yaritza Holland> Cosigner Signature (if applicable): Date Yaritza Leo DO CC: ~ Signed [facility] Work Phone: [phone] 425-934906-10-2025 Progress note Author [facility] Note Date/Time January 11, 2025 5:51 pm [facility] Medical Records Department [address] [place] [address] Progress Note 01/11/25 1510 MR#: [id number] Acct: [id number] Name: FRANKLIN WIGGINS Rep #:[id number] : 1965 59 From: Cielo Tovar MD PCP: YG Pena Status:ADM I N Location: [place] [address] Subjective Subjective Patient seen and examined. He [...] % (Auto) Cancelled, Lymph % (Auto) Cancelled, Shannon % (Auto) Cancelled, Eos % (Auto) Cancelled, [...] Drop Cells Cancelled, Ovalocytes Cancelled, Stomatocytes Cancelled, Castell[place]-Goldston Bodies Cancelled, [place] Cells Cancelled, Bite Cells Cancelled, Crenated Cell [...] (Auto) 69.6, Lymph % (Auto) 12.6 L, Shannon % (Auto) 11.8 H, Eos % (Auto) [...] of anemia Charges/Coding Visit Charges Inpatient E&M: 96060 Subs Hosp L2 01/11/25 1751 <Electronically signed by Cielo Tovar MD> Cielo Tovar MD Cosigner Signature (if applicable): CC: ~ Signed [facility] Work Phone: [phone] 191-915406-10-2025 Consult note Author Jefferson Malave [facility] Note Date/Time January 11, 2025 4:41 pm [facility] Medical Records Department [address] [place] [address] Consultation - Surgical 01/11/25 1634 MR#: [id number] Acct: [id number] Name: FRANKLIN WIGGINS Rep #:[id number] : 1965 59 From: Jefferson Malave MD PCP: YG Pena Status:ADM I N Location: [place] [address] Assessment & Plan Assessment/Plan (1) Umbilical hernia: [...] for Consultation: Umbilical hernia HPI Narrative: FRANKLIN WIGGINS, is a 59 M who presented to [...] findings on CT consistent with portal hypertension. [facility] Medical History (Updated 01/11/25 @ 16:41 [...] % (Auto) Cancelled, Lymph % (Auto) Cancelled, Shannon % (Auto) Cancelled, Eos % (Auto) Cancelled, [...] Drop Cells Cancelled, Ovalocytes Cancelled, Stomatocytes Cancelled, Cast[place]-Gold[place] Bodies Cancelled, [place] Cells Cancelled, Bite Cells Cancelled, Crenated Cell [...] (Auto) 69.6, Lymph % (Auto) 12.6 L, Shannon % (Auto) 11.8 H, Eos % (Auto) [...] 48 hours. Charges/Coding Visit Charges Inpatient E&M: 95762 Init Hosp L3 01/11/25 1641 <Electronically signed by Jefferson Malave MD> Cosigner Signature (if applicable): CC: YG Elias~ Signed [facility] Work Phone: [phone] Progress note Author Bola Meraz [facility] Note Date/Time January 11, 2025 9:07 am [facility] Medical Records Department [address] [place] [address] Progress Note - Restaurant Supervisor 01/11/25 0722 MR#: [id number] Acct: [id number] Name: FRANKLIN WIGGINS Rep #:[id number] : 1965 59 From: [...] scheduled midodrine. This note was generated with ADOR dictation software. It may contain incorrectwords, spelling, [...] % (Auto) Cancelled, Lymph % (Auto) Cancelled, Shannon % (Auto) Cancelled, Eos % (Auto) Cancelled, [...] Drop Cells Cancelled, Ovalocytes Cancelled, Stomatocytes Cancelled, Castellon-Goldston Bodies Cancelled, [place] Cells Cancelled, Bite Cells Cancelled, Crenated Cell [...] (Auto) 69.6, Lymph % (Auto) 12.6 L, Shannon % (Auto) 11.8 H, Eos % (Auto) [...] hypertension. No liver masses identified. Reading Location: [facility] Physical Exam Const alert, oriented x3 and [...] flat affect Charges/Coding Visit Charges Inpatient E&M: 79733 Subs Hosp L2 01/11/25 0907 <Electronically signed by Bola Meraz DO> Cosigner Signature (if applicable): CC: ~ Signed [facility] Work Phone: [phone] Consult note Author Boone Garcia [facility] Note Date/Time January 11, 2025 2:14 am [facility] Medical Records Department [address] [place] [address] Pharmacokinetic/Renal -Consult 01/11/25 0211 MR#: [id number] Acct: [id number] Name: FRANKLIN WIGGINS Rep #:[id number] : 1965 59 From: [...] Signature (if applicable): Date CC: ~ Signed [facility] Work Phone: [phone] 465-494006-09-2025 Progress note Author Cielo Tovar [facility] Note Date/Time January 10, 2025 6:23p [facility] Medical Records Department [address] [place] [address] Progress Note 01/10/25 1816 MR#: [id number] Acct: [id number] Name: FRANKLIN WIGGINS Rep #:[id number] : 1965 59 From: [...] % (Auto) Cancelled, Lymph % (Auto) Cancelled, Shannon % (Auto) Cancelled, Eos % (Auto) Cancelled, [...] Drop Cells Cancelled, Ovalocytes Cancelled, Stomatocytes Cancelled, Castellon-Goldston Bodies Cancelled, [place] Cells Cancelled, Bite Cells [...] 76.1 H, Lymph % (Auto) 8.8 L, Shannon % (Auto) 8.2, Eos % (Auto) 5.9 [...] prophylaxis: Heparin Charges/Coding Visit Charges Inpatient E&M: 49585 Subs Hosp L3 01/10/25 1823 <Electronically signed by Cielo Tovar MD> Cielo Tovar MD Cosigner Signature (if applicable): CC: ~ Signed [facility] Work Phone: [phone] Progress note Author Bola Meraz [facility] Note Date/Time January 10, 2025 8:52a m [facility] Medical Records Department [address] [place] [address] Progress Note - Restaurant Supervisor 01/10/25 0700 MR#: [id number] Acct: [id number] Name: FRANKLIN WIGGINS Rep #:[id number] : 1965 59 From: [...] scheduled midodrine. This note was generated with Dragon dictation software. It may contain incorrectwords, spelling, [...] 80.6 H, Lymph % (Auto) 7.2 L, Shannon % (Auto) 6.7, Eos % (Auto) 4.2, [...] % (Auto) Cancelled, Lymph % (Auto) Cancelled, Shannon % (Auto) Cancelled, Eos % (Auto) Cancelled, [...] Drop Cells Cancelled, Ovalocytes Cancelled, Stomatocytes Cancelled, Castellon-Goldston Bodies Cancelled, [place] Cells Cancelled, Bite Cells Cancelled, Crenated Cell [...] 76.1 H, Lymph % (Auto) 8.8 L, Shannon % (Auto) 8.2, Eos % (Auto) 5.9 [...] hypertension. No liver masses identified. Reading Location: [facility] Physical Exam Const alert, oriented x3 and [...] flat affect Charges/Coding Visit Charges Inpatient E&M: 93902 Subs Hosp L3 01/10/25 0852 <Electronically signed by Bola Meraz DO> Cosigner Signature (if applicable): CC: ~ Signed [facility] Work Phone: [phone] 209-372306-08-2025 Consult note Author Lupillo Robbins [facility] Note Date/Time January 09, 2025 8:03p [facility] Medical Records Department [address] [place] [address] Consultation - Restaurant Supervisor 01/09/25 1836 MR#: [id number] Acct: [id number] Name: FRANKLIN WIGGINS Rep #:[id number] : 1965 59 From: Lupillo Robbins MD PCP: YG Pena Status:ADM I N Location: ICU CVICU20 1-1 HPI Consult Data Date of Consult: 01/09/25 HPI Narrative HPI Narrative: FRANKLIN WIGGINS, is a 59 M with cirrhosis, ureteral [...] Ferrous Sulfate 325 Mg Tablet PO Q48@1200 [facility] Folic Acid 1 mg 01/10/25 08:00 Folic Acid 1 Mg Tablet PO BREAKFAST KRYSTIN Guaifenesin 10 ml 01/09/25 15:46 Guaifenesin 10 Ml Udc (200mg/10ml) PO Q4H PRN PRN COUGH Heparin Sodium (Porcine) 5,000 unit 01/09/25 22:00 Heparin Injection (Vial) 5,000 Unit/Ml Vial SC Q8 KRYSTIN Sodium Chloride 250 mls @ 15 mls/hr 01/09/25 15:34 IV .[id number] PRN Saline Flush Sodium Chloride 250 mls @ 15 mls/hr 01/09/25 15:34 IV .[id number] PRN Additional IVPB Infusion Norepinephrine Bitartrate 8 mg 250 mls @ 9.375 mls/hr 01/09/25 15:46 01/09/2515:56 / Sodium Chloride CONT INF Not Given .[id number] [facility] Protocol 5 MCG/MIN Vancomycin IV-PHARMACY TO DOSE 500 mls @ 250 mls/hr 01/09/25 15:46 1 each/ Sodium Chloride IV PRN PRN Rx to Dose Protocol Meropenem 1 gm/ Sodium 120 mls @ 33 mls/hr 01/09/25 22:00 Chloride IV Q12 KRYSTIN Vancomycin HCl 1,000 mg in 200 mls @ 200 mls/hr 01/10/25 02:00 Vancomycin IV Q12H [facility] Insulin Glargine 20 unit 01/09/25 22:00 Insulin Glargine-Yfgn 100 Unit/Ml Pen SC QHS [facility] Insulin Glargine 20 unit 01/10/25 10:00 Insulin Glargine-Yfgn 100 Unit/Ml Pen SC DAILY [facility] Insulin Human Lispro 0 unit 01/09/25 16:00 01/09/25 16:27 Insulin Lispro 100 Unit/Ml Insuln.Pen SC Not Given ACHS [facility] Protocol Lactulose 10 gm 01/09/25 15:46 Lactulose 20 Gm/30 Ml Udc PO TID PRN constipation Magnesium Chloride 128 mg 01/10/25 10:00 Magnesium Chloride 64 Mg Delay Rel.Tablet PO DAILY [facility] Midodrine 10 mg 01/09/25 17:00 01/09/25 17:10 Midodrine Hcl 5 Mg Tablet PO 10 mg TIDCM [facility] Administration Ondansetron HCl 4 mg 01/09/25 15:46 Ondansetron 4 Mg/2 Ml Vial IV Q8H PRN PRN NAUSEA/VOMITING Pantoprazole Sodium 20 mg 01/10/25 10:00 Pantoprazole Sodium 20 Mg Tablet PO DAILY [facility] Potassium Phos/Sodium Phos 1 packet 01/09/25 22:00 Na Biphos/Potassium Phosphate Packet PO BID [facility] Rifaximin 550 mg 01/09/25 22:00 Rifaximin 550 Mg Tablet PO BID [facility] Sodium Bicarbonate 650 mg 01/09/25 22:00 Sodium Bicarbonate 650 Mg Tablet PO BID [facility] Sodium Chloride 10 - 40 ml 01/09/25 15:34 0.9% Saline Lock 10 Ml Syringe IV UD PRN SALINE FLUSH Thiamine HCl 100 mg 01/10/25 10:00 Thiamine Hydrochloride 100 Mg Tablet PO DAILY [facility] Vancomycin Protocol 1 lab 01/11/25 00:30 Vancomycin Trough/Random Due MC 01/11/25 02:30 DAILY [facility] Zinc Sulfate 50 mg 01/10/25 10:00 Zinc Sulfate 50 Mg Zinc (220 Mg) Oral Capsule PO DAILY [facility] Lab / Micro Data 01/09/25 10:40 01/09/25 [...] 80.6 H, Lymph % (Auto) 7.2 L, Shannon % (Auto) 6.7, Eos % (Auto) 4.2, [...] hypertension. No liver masses identified. Reading Location: [facility] Assessment and Plan . Assessment and plan: [...] Robbins MD> Cosigner Signature (if applicable): CC: MECHANICAL COMMISSIONING ENGINEER-C Josy Elias~ Signed [facility] Work Phone: [phone] Consult note Author Peter Carvajal [facility] Note Date/Time January 09, 2025 5:42p m [facility] Medical Records Department [address] [place] [address] Pharmacokinetic/Renal -Consult 01/09/25 1602 MR#: [id number] Acct: [id number] Name: FRANKLIN WIGGINS Rep #:[id number] : 1965 59 From: [...] Peter gusman> Date _ Peter Carvajal 01/09/25 5515 <Electronically signed by Yaritza Holland> Eduardoigner Signature (if applicable): Date Yaritza Leo DO CC: ~ Signed [facility] Work Phone: [phone] 112-485106-08-2025 History and physical note Author Yaritza eLo [facility] Note Date/Time January 09, 2025 5:41p m [facility] Medical Records Department [address] [place] [address] H&P Exam - Hospitalist 01/09/25 1408 MR#: [id number] Acct: [id number] Name: FRANKLIN WIGGINS Rep #:[id number] : 1965 59 From: Yaritza Leo DO PCP: YG Pena Status:ADM I N Location: ICU CVICU 08-04 HPI - General General Date of Admission: 01/09/25 Date of Service: 01/09/25 Chief Complaint: Suprapubic abdominal pain HPI Narrative FRANKLIN WIGGINS, is a 59 M who presented to the emergency department [facility] on 01/09/2025 due to back pain and [...] and currently resides at an [facility]. He denies any fever or chills. He [...] a repeat of 89/59 and pulse ox crz930% on room air. CBC showed a leukocytosis [...] he was treated with 30 cc/kg bolus. [facility] Medical History (Updated 01/09/25 @ 17:18 [...] 80.6 H, Lymph % (Auto) 7.2 L, Shannon % (Auto) 6.7, Eos % (Auto) 4.2, [...] hypertension. No liver masses identified. Reading Location: [facility] Assessment & Plan Assessment/Plan (1) Sepsis: (2) [...] currently 102/60) Charges/Coding Visit Charges Inpatient E&M: 17012 Init Hosp L3 01/09/25 1741 <Electronically signed by Yaritza Leo DO> Cosigner Signature (if applicable): CC: YG Elias; Dr. Yaritza Leo DO~ Signed [facility] Work Phone: [phone] Discharge summary Author Breann Mendez [facility] Note Date/Time January 09, 2025 4:26p [facility] Medical Records Department [address] [place] [address] Emergency Department Summary 01/09/25 MR#: [id number] Acct: [id number] Name: FRANKLIN WIGGINS Rep #:[id number] : 1965 59 From: [...] denies urinary symptoms. Patient is from a custodial and normally ambulates with a walker. Patient has history of cirrhosis and history of diabetes as well as high cholesterol. Patient has had prior paracentesis. Currently rates his pain about a 5 out of 10. He does not want thing for pain currently. [facility] Medical History Weakness Diarrhea Sepsis Acidosis, lactic [...] mg tablet (Xifaxan) 550 mg [facility]ID [facility] 09/02/24 11/28/24 Rx acetaminophen [...] 80.6 H Lymph % (Auto) 7.2 L Shannon % (Auto) 6.7 Eos % (Auto) 4.2 [...] Clarity Turbid Urine pH 6.0 Ur Specific Amanda 1.015 Urine Protein 500 H Urine Glucose [...] hypertension. No liver masses identified. Reading Location: [facility] Critical Care Time Critical care time (excluding procedures): 30-74 minutes, Including time spent:,Discussing w/Patient &/or Family/Investigation Division Captain, Discussing w/Consultants, ArrangingAdmission or Transfer, Performing Direct [...] NP-C [Primary Care Provider] - Print Language: Dominican Disposition Disposition: Acute Care [facility] What to do if you have Problems For any increased pain, shortness of breath, bleeding, nausea or vomiting, chestpain, or any unexpected problems, contact your Primary Care Provider. Call [facility] ([phone]) or report to the closest Emergency Room. Call 911 if necessary. 01/09/25 1626 <Electronically signed by Breann Mendez DO> Cosigner Signature (if applicable): CC: YG Elias ~ Signed [facility] Work Phone: 1(115) 499-654906-08-2025 Radiology Diagnostic study [facility]06-04-2025 Consult note Author Kuortney Reece [facility] Note Date/Time January 05, 2025 5:01p [facility] Medical Records Department [address] [place] [address] Counseling Note - Pharmacy 01/05/25 1447 MR#: [id number] Acct: [id number] Name: FRANKLIN WIGGINS Rep #:[id number] : 1965 59 From: Kourtney Reece PCP: YG Pena Status:ADM I N Y Location: [place] [address] Pharmacy [place] Med Reconciliation Pharmacy Service has performed discharge [...] solution (Constulose) 15 ml PO TID PRN lretichkrvec97/27/25 L.acidophil,salivari-Bifido bifidum-Strep thermoph 175 mg capsule 1 [...] Signature (if applicable): Date CC: ~ Signed [facility] Work Phone: [phone]) [phone] Discharge summary Author Hill Acuña [facility] Note Date/Time January 05, 2025 2:[address] [place] [address] System Medical Records Department [address] [place] [address] Discharge Summary 01/05/25 1404 MR#: [id number] Acct: [id number] Name: FRANKLIN WIGGINS Rep #:[id number] : 1965 59 From: Hill Acuña MD PCP: YG Pena Status:ADM I N Location: [place] [address] Providers Date of Admission: 01/02/25 Date of [...] to multiple medical comorbidities. Transfer to senior living facility had been recommended to patient during previous hospitalization he did decline. I had a discussion with patient he is amenable to entertaining the idea of going to senior living facility. Subsequently requested for PT OT eval and social media community manager to assist with discharge planning ? 01/03/2025; plan is to discuss with case management regarding disposition ? 01/05/2025; awaiting insurance pre-CERT prior to transfer to senior living facility ? Patient was discharged to senior living facility once insurance. 2. Severe hypokalemia ? [...] solution (Constulose) 15 ml PO TID PRN wyimqseckfrl52/27/25 L.acidophil,salivari-Bifido bifidum-Strep thermoph 175 mg capsule 1 [...] (Auto) 69.1, Lymph % (Auto) 13.4 L, Shannon % (Auto) 11.6 H, Eos % (Auto) [...] in before D/C Order can be placed): [facility] Charges/Coding Visit Charges Inpatient E&M: 96495 Disch Hosp >30min 01/05/25 1407 <Electronically signed by Hill Acuña MD> Cosigner Signature (if applicable): CC: YG Elias; Dr. Hill Acuña MD~ Signed [facility] Work Phone: [phone]) 419-822906-04-2025 Discharge summary Author Hill Acuña [facility] Note Date/Time January 05, 2025 2:04p [facility] Medical Records Department [address] [place] [id number] Transfer to [facility] MR#: [id number] Acct: [id number] Name: FRANKLIN WIGGINS Rep #:[id number] : 1965 59 From: Hill Acuña MD PCP: YG Pena Status:ADM I N Certification of patient admission REQUIRED AT TIME OF ADMISSION. I CERTIFY THAT POST-HOSPITAL ECF SERVICES ARE REQUIRED TO BE GIVEN ON AN IN-PATIENT BASIS BECAUSE OF THE ABOVE NAMED PATIENT'S NEED FOR FCI CARE ON A CONTINUING BASIS FOR THE CONDITION(S) FOR WHICH HE/SHE WAS RECEIVING IN-PATIENT HOSPITAL SERVICES PRIOR TO HIS/HER TRANSFER TO THE [facility]. 01/05/25 1404<Electronically signed by Hill Acuña MD> [...] to multiple medical comorbidities. Transfer to senior living facility had been recommended to patient during previous hospitalization he did decline. I had a discussion with patient he is amenable to entertaining the idea of going to senior living facility. Subsequently requested for PT OT eval and social media community manager to assist with discharge planning ? 01/03/2025; plan is to discuss with case management regarding disposition ? 01/05/2025; awaiting insurance pre-CERT prior to transfer to senior living facility 2. Severe hypokalemia ? Patient potassium [...] in before D/C Order can be placed): [facility] 01/05/25 1404 <Electronically signed by Hill Acuña MD> Cosigner Signature (if applicable): CC: YG Elias; Dr. Buster Fuchs MD ~ [facility] Work Phone: 1(889) 137-668406-04-2025 [facility]06-04-2025 Progress note Author Hill [facility] Note Date/Time January 05, 2025 11:01 am [facility] Medical Records Department [address] [place] [address] Progress Note - Hospitalist 01/05/25 0737 MR#: [id number] Acct: [id number] Name: FRANKLIN WIGGINS Rep #:[id number] : 1965 59 From: Hill Acuña MD PCP: YG Pena Status:ADM I N Location: [place] [address] Reason for Visit Reason for Visit: Diagnoses Acute kidney failure, unspecified (01/02/25) Unspecified fall, initial encounter (01/02/25) Subjective Subjective Patient seen blood glucose control not optimal further adjustment made to patient insulin regimen. Patient awaiting insurance precertification prior to transfer to senior living facility Objective Data Objective Data Vital Signs: Vital [...] (Auto) 69.1, Lymph % (Auto) 13.4 L, Shannon % (Auto) 11.6 H, Eos % (Auto) [...] to multiple medical comorbidities. Transfer to senior living facility had been recommended to patient during previous hospitalization he did decline. I had a discussion with patient he is amenable to entertaining the idea of going to senior living facility. Subsequently requested for PT OT eval and social media community manager to assist with discharge planning ? 01/03/2025; plan is to discuss with case management regarding disposition ? 01/05/2025; awaiting insurance pre-CERT prior to transfer to senior living facility 2. Severe hypokalemia ? Patient potassium [...] SCDs for Charges/Coding Visit Charges Inpatient E&M: 18304 Subs Hosp L2 01/05/25 1101 <Electronically signed by Hill Acuña MD> Cosigner Signature (if applicable): CC: ~ Signed [facility] Work Phone: 1(270) 679-237206-03-2025 Progress note Author Hill Acuña [facility] Note Date/Time January 04, 2025 10:18 am [facility] Medical Records Department [address] [place] [address] Progress Note - Hospitalist 01/04/25 1014 MR#: [id number] Acct: [id number] Name: FRANKLIN WIGGINS Rep #:[id number] : 1965 59 From: Hill Acuña MD PCP: YG Pena Status:ADM I N Location: [place] [address] Reason for Visit Reason for Visit: Diagnoses [...] to multiple medical comorbidities. Transfer to senior living facility had been recommended to patient during previous hospitalization he did decline. I had a discussion with patient he is amenable to entertaining the idea of going to senior living facility. Subsequently requested for PT OT eval and social media community manager to assist with discharge planning ? 01/03/2025; [...] SCDs for Charges/Coding Visit Charges Inpatient E&M: 90824 Subs Hosp L2 01/04/25 1018 <Electronically signed by Hill Acuañ MD> Cosigner Signature (if applicable): CC: ~ Signed [facility] Work Phone: 1(466) 190-517506-02-2025 Progress note Author Hill Acuña [facility] Note Date/Time January 03, 2025 9:52a m [facility] Medical Records Department [address] [place] [address] Progress Note - Hospitalist 01/03/25 0839 MR#: [id number] Acct: [id number] Name: FRANKLIN WIGGINS Rep #:[id number] : 1965 59 From: Hill Acuña MD PCP: YG Pena Status:ADM I N Location: [place] [address] Reason for Visit Reason for Visit: Diagnoses [...] (Auto) 67.5, Lymph % (Auto) 13.9 L, Shannon % (Auto) 11.5 H, Eos % (Auto) [...] to multiple medical comorbidities. Transfer to senior living facility had been recommended to patient during previous hospitalization he did decline. I had a discussion with patient he is amenable to entertaining the idea of going to senior living facility. Subsequently requested for PT OT eval and social media community manager to assist with discharge planning ? 01/03/2025; [...] SCDs for Charges/Coding Visit Charges Inpatient E&M: 30707 Subs Hosp L2 01/03/25 0952 <Electronically signed by Hill Acuña MD> Cosigner Signature (if applicable): CC: ~ Signed [facility] Work Phone: 1(180) 182-640806-01-2025 Progress note Author Hill Acuña [facility] Note Date/Time January 02, 2025 9:58a m [facility] Medical Records Department [address] [place] [address] Progress Note - Hospitalist 01/02/25 0736 MR#: [id number] Acct: [id number] Name: FRANKLIN WIGGINS Rep #:[id number] : 1965 59 From: Hill Acuña MD PCP: YG Pena Status:ADM I N Location: [place] [address] Reason for Visit Reason for Visit: Diagnoses Acute kidney failure, unspecified (01/02/25) Unspecified fall, initial encounter (01/02/25) Subjective Subjective Patient is a 59-year-old gentleman with recent multiple hospitalization presented to the emergency department with progressive generalized weakness and vomiting. This was apparently his third visit to the ED within a week. Patienthad been encouraged to be discharged to a senior living facility he however declined. Objective Data Objective [...] (Auto) 68.0, Lymph % (Auto) 12.2 L, Shannon % (Auto) 11.9 H, Eos % (Auto) [...] insufficiency fracture again noted, unchanged. Reading Location: [facility] Brain CT 01/02/25 03:55 IMPRESSION: No intracranial hemorrhage, mass effect or calvarial fracture. Moderate volume loss, atrophy again noted. Mild left maxillary sinus disease appears mildly decreased from the prior study. Reading Location: [facility] Cervical Spine CT 01/02/25 03:55 IMPRESSION: No fracture or malalignment. Multilevel spondylosis/discogenic change greatest at C5-6 Reading Location: [facility] Physical Exam Narrative GENERAL: cooperative HEENT: Atraumatic; [...] to multiple medical comorbidities. Transfer to senior living facility had been recommended to patient during previous hospitalization he did decline. I had a discussion with patient he is amenable to entertaining the idea of going to senior living facility. Subsequently requested for PT OT eval and social media community manager to assist with discharge planning 2. Severe [...] documentation, 38Minutes Charges/Coding Visit Charges Inpatient E&M: 30447 PROLNG IP/OBS E/M EA 15 MIN Multi Select Codes Visit Charges Visit Charges: 64370 PROLNG IP/OBS E/M EA 15 MIN 01/02/25 0958 <Electronically signed by Hill Acuña MD> Cosigner Signature (if applicable): CC: ~ Signed [facility] Work Phone: 1(359) 307-604606-01-2025 History and physical note Author Buster Fuchs [facility] Note Date/Time January 02, 2025 6:44a m [facility] Medical Records Department [address] [facility] [place] [address] H&P Exam - Hospitalist 01/02/25 0556 MR#: [id number] Acct: [id number] Name: FRANKLIN WIGGINS Rep #:[id number] : 1965 59 From: Buster duarte MD PCP: YG Pena Status:ADM I N [facility] - General General Date of Admission: 01/02/25 HPI Narrative FRANKLIN WIGGINS, is a 59 M who presents to the hospital with weakness and a fall. He did not hit his head or lose consciousness. He has had an extensive recent medical history with cirrhosis and UTI with staghorn calculus, he was in the ICUin October. 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 Was not considered to be a liver transplant candidate and was placed on anticoagulation. He has had a couple of readmissions for weakness and debility. [place] to possibly have aUTI given a staghorn [...] Heis receiving potassium infusion in the ER. [facility] Medical History Weakness Diarrhea Sepsis Acidosis, [...] (Auto) 68.0, Lymph % (Auto) 12.2 L, Shannon % (Auto) 11.9 H, Eos % (Auto) [...] insufficiency fracture again noted, unchanged. Reading Location: [facility] Brain CT 01/02/25 03:55 IMPRESSION: No intracranial hemorrhage, mass effect or calvarial fracture. Moderate volume loss, atrophy again noted. Mild left maxillary sinus disease appears mildly decreased from the prior study. Reading Location: [facility] Cervical Spine CT 01/02/25 03:55 IMPRESSION: No fracture or malalignment. Multilevel spondylosis/discogenic change greatest at C5-6 Reading Location: [facility] Assessment & Plan Assessment/Plan (1) Fall: (2) [...] once verified Charges/Coding Visit Charges Inpatient E&M: 85698 Init Hosp L2 01/02/25 0644 <Electronically signed by Buster Fuchs MD> Cosigner Signature (if applicable): CC: MECHANICAL COMMISSIONING ENGINEER-C Josy Elias; Dr. Buster Fuchs MD~ Signed [facility] Work Phone: [phone]) 788-111506-01-2025 Discharge summary Author Roddy Reeves [facility] Note Date/Time January 02, 2025 6:00a m [facility] Medical Records Department [address] [place] [address] Emergency Department Summary 01/02/25 MR#: [id number] Acct: [id number] Name: FRANKLIN WIGGINS Rep #:[id number] : 1965 59 From: [...] was here recently and was sent home. [facility] Medical History Weakness Diarrhea Sepsis Acidosis, lactic [...] Patient following commands that he [facility] at [facility] that wewere in the end of [...] (Auto) 68.0 Lymph % (Auto) 12.2 L Shannon % (Auto) 11.9 H Eos % (Auto) [...] Clarity Turbid Urine pH 6.0 Ur Specific Amanda 1.015 Urine Protein 100 H Urine Glucose [...] insufficiency fracture again noted, unchanged. Reading Location: [facility] Brain CT 01/02/25 03:55 IMPRESSION: No intracranial hemorrhage, mass effect or calvarial fracture. Moderate volume loss, atrophy again noted. Mild left maxillary sinus disease appears mildly decreased from the prior study. Reading Location: [facility] Cervical Spine CT 01/02/25 03:55 IMPRESSION: No fracture or malalignment. Multilevel spondylosis/discogenic change greatest at C5-6 Reading Location: [facility] Discharge Plan Triage Chief Complaint: Weakness ED [...] NP-C [Primary Care Provider] - Print Language: Dominican Disposition Disposition: Acute Care [facility] What to do if you have Problems For any increased pain, shortness of breath, bleeding, nausea or vomiting, chestpain, or any unexpected problems, contact your Primary Care Provider. Call [facility] ([phone]) or report to the closest Emergency Room. Call 911 if necessary. 01/02/25 0600 <Electronically signed by Roddy Reeves DO> Cosigner Signature (if applicable): CC: YG Elias ~ Signed [facility] Work Phone: 1(148) 779-639906-01-2025 Radiology Diagnostic study [facility]06-01-2025 Radiology Diagnostic study [facility]06-01-2025 Radiology Diagnostic study [facility] 12-30-2024 Radiology Diagnostic study [facility]05-25-2025 Radiology Diagnostic study [facility]05-14-2025 Radiology Diagnostic study [facility]04-20-2025 Radiology Diagnostic study [facility]04-17-2025 Telephone encounter Note* Telephone Encounter - Marah [...] will be scheduled to follow up with [facility] Sl[facility]. JEANNINE asked that Dr. Mosley inform this pt that he can return to our transplant center again and be re-evaluated once he has addressed his prohibitive psychosocial concerns (lack of caregivers, unstable housing, unstable finances, unreliable transportation). Dr. Mosley agreed to do so. [facility] Work Phone: 1(991) 571-762804-17-2025 Miscellaneous Notes* Telephone Encounter - Marah Arauz [...] will be scheduled to follow up with [facility]. JEANNINE asked that Dr. Mosley inform this pt that he can return to our transplant center again and be re-evaluated once he has addressed his prohibitive psychosocial concerns (lack of caregivers, unstable housing, unstable finances, unreliable transportation). Dr. Mosley agreed to do so. documented in this encounterChildren[facility]04-17-2025 Telephone encounter Note * Telephone Encounter - Jeremi Abreu RN - 11/18/2024 10:01 AM EDT Inpatient hepatology team spoke with Franklin Wiggins to advise him that his case was discussedat liver transplant selection committee on 11/17/2024 and he was declined for liver transplant due to social issues that include unstable housing, lack of income, lack of caregivers and lack of transportation. . Jeremi Abreu RN, BSN Liver Ict Support Engineer [facility] Work Phone: 1(563) 705-722204-17-2025 Miscellaneous Notes* Telephone Encounter - Jeremi Abreu RN - 11/18/2024 10:01 AM EDT Inpatient hepatology team spoke with Franklin Wiggins to advise him that his case was discussedat liver transplant selection committee on 11/17/2024 and he was declined for liver transplant due to social issues that include unstable housing, lack of income, lack of caregivers and lack of transportation. . Jeremi Abreu RN, BSN Liver Ict Support Engineer documented in this encounterChildren'S [facility]04-17-2025 [facility]-2025 [facility]04-16-2025 [facility]04-16-2025 [facility]04-16-2025 [facility]20[facility]04-15-2025 [facility]04-15-2025 [facility] 11-15-2024 [facility]04-14-2025 [facility]04-14-2025 [facility]04-14-2025 History of Present illness Narrative* Marah Arauz LSW - 11/15/2024 2:35 PM EDT Orthotopic Liver Transplant (OLT) Urgent Inpatient Psychosocial Evaluation Patient: Franklin Wiggins Date Evaluated: November 15, 2024 Patient Franklin Wiggins was seen for an urgent inpatient eval on November 15, 2024. Please see separate inpatient note from this date for full documentation of the assessment, recommendations and plan. JANETTE Rucker November 15, 2024 2:35 PM documented in this encounterChildren'S [facility]04-14-2025 [facility]04-14-2025 History of Present illness Narrative* Virgil Farley DDS - 11/15/2024 1:48 PM EDTSummary: Liver Transplant Dental Bedside Clearance See inpatient note for this encounter on 11/15/2024. Virgil Farley DDS documented in this encounterChildren'S [facility]04-14-2025 [facility]04-13-2025 [facility]04-12-2025 [facility]04-11-2025 History of Present illness Narrative* Lizett Guzman RPh - 11/12/2024 4:34 PM EDT Pharmacist Pre-Transplant Evaluation Franklin Wiggins is a 59 year old male with [...] mg capsule(s) rifAXIMin 550 mg tab(s) (XIFAXAN) lnbspcr-lyvgclfvc-koticwb D3 500 mg-5 mcg (200 unit) 1 [...] mg by mouth once daily. Lizett Guzman, Juan Transplant Pharmacy Clinical Specialist Pager: [phone] documented in this encounterChildren'S Hospital [facility]04-11-2025 [facility]04-11-2025 [facility]04-11-2025 History of Present illness Narrative* Jeremi Abreu RN - 11/12/2024 2:52 PM EDT The following information has been provided/discussed with the patient/family during Shared MedicalAppointment education class: Informed Consent for Organ Transplant Program Participation version February 20, 2023. SRTR information provided and questions answered. Informed patient to call enrollment coordinator with any questions. [facility] information regarding multiple listings for organ transplantation Evaluation process including presentation to selection committee and listing criteria Surgical procedure, including post-operative management, hospitalization, immunosuppressive medications and their side effects (including the risk for hypertension, diabetes, kidney problems and cancers) and long term care administrator follow up after transplant. Possibility of recurrent [...] provided with [facility] information sheet regarding transplantation of HepatitisC viremic [...] LIMITATIONS AFFECTING LEARNING: None [facility] METHOD OF INSTRUCTION: Verbal instruction Video PATIENT / FAMILY RESPONSE: Information received as demonstrated by interest and questions FOLLOW-UP PLAN: Contact information given. SUPPLEMENTAL MATERIAL: None REFERRAL (RECOMMENDATION): None Electronically Signed By: Jeremi Abreu RN In Department: TRANSPLANT CENTER documented in this encounterChildren'S [facility]04-11-2025 [facility]04-11-2025 History of Present illness Narrative* Marah Arauz LSW - 11/12/2024 1:16 PM EDT Orthotopic Liver Transplant (OLT) Urgent Inpatient Psychosocial Evaluation Patient: Franklin Wiggins Date Evaluated: November 12, 2024 Patient Franklin Wiggins was seen for an urgent inpatient eval on November 12, 2024. Please see separate inpatient note from this date for full documentation of the assessment, recommendations and plan. JANETTE Rucker November 12, 2024 1:16 PM documented in this encounterChildren'S [facility]04-11-2025 Miscellaneous Notes* Telephone Encounter - Jeremi Abreu RN - 11/12/2024 12:08 PM EDT INFORMED CONSENT Franklin Wiggins Medical Record: [id number] Informed consent for Organ Transplant Program Participation [...] questions answered. Jeremi Abreu RN, BSN Liver Ict Support Engineer documented in this encounterChildren'S [facility]04-11-2025 Telephone encounter Note * Telephone Encounter - Jeremi Abreu RN - 11/12/2024 12:08 PM EDT INFORMED CONSENT Franklin Wiggins Medical Record: [id number] Informed consent for Organ Transplant Program Participation [...] questions answered. Jeremi Abreu RN, BSN Liver Ict Support Engineer [facility] Work Phone: 1(479) [phone] [facility]Main [facility]04-11-2025 NoteHNO ID: [id number] Author: KIRTI VELÁSQUEZ RN Service: Nursing Author Type: Registered Nurse Type: Nursing Progress Note Filed: 11/12/2024 00:58 Note Text: Other: PTTAC-no clot detected at 320-heparin gtt stopped-need futher orders-prescription benefit specialist notifiedMain Campus Medical Center04-10-2025 [facility] 11-11-2024 [facility]04-10-2025 [facility]04-09-2025 Discharge summary Author Kathie Powers [facility] Note Date/Time November 10, 2024 8:42 pm [facility] Medical Records Department [address] [place] [address] Discharge Summary 11/10/241936 MR#: [id number] Acct: [id number] Name: FRANKLIN WIGGINS Rep #:[id number] : 1965 59 From: Kathie Powers MD PCP: Care Physician,No Primary Status :ADM IN Location: [place] [address]- Providers Date of Admission: 10/29/24 Date of Discharge: 11/10/24 Primary Care Physician: No Primary Care Phys Consultations 10/29/24 01:15 Consult: Urology Routine Consulting Provider: Foster Rascon Reason for Consult: Sepsis with UTI and Staghorn Calculus. EMERGENT Consult: No MD Notified: Yes Date Notified: 10/29/24 Time Notified: 08:07 Method of Notification: Verbal 10/29/24 01:47 Consult: Restaurant Supervisor / Pulmonary Medicine Routine Consulting Provider: Intensivists/Pulmonary Med Reason for Consult: Sepsis, UTI, Diarrhea, Abdominal Pain and Back Pain. EMERGENT Consult: No MD Notified: Yes Date Notified: 10/29/24 Time Notified: 04:58 Method of Notification: Text 10/30/24 03:54 Consult: Gastroenterology Routine Consulting Provider: [facility] Reason for Consult: BOYER, elevated ammonia EMERGENT Consult: No MD Notified: Yes Date Notified: 10/30/24 Time Notified: 07:31 Method of Notification: Text 11/09/24 21:26 Consult: Gastroenterology Routine Consulting Provider: [facility] Reason for Consult: cirrhosis,ascites,splenic thrombosis, low plts, possible dec in heidy motili EMERGENT Consult: No MD Notified: Yes Date Notified: 11/10/24 Time Notified: 05:35 Method of Notification: Text Consult: Oncology/Hematology Routine Consulting Provider: *[facility] Reason for Consult: splenic [...] diabetes, staghorn colliculi, cirrhosis who presented to [facility] ED 10/29/2024 with sepsis and was found [...] out to [facility] and ultimately patient was accepted by the nurse case management Dr. Neal. Patient with bed assignment 11/10, patient to be transferred to [facility] Physical Exam Narrative General: Sleeping but will [...] 83.0 H, Lymph % (Auto) 6.6 L, Shannon % (Auto) 6.9, Eos % (Auto) 1.9, [...] Clarity Turbid, Urine pH 6.5, Ur Specific Amanda 1.015, Urine Protein 500 H, Urine Glucose [...] sequela of portal hypertension. Reading Location: [facility] D/C Instructions DC O2, CPAP, BIPAP Needs [...] Admit Date/Time: 10/29/24 00:43 Attending Provider: Kathie Powers Primary Care Provider: Care Physician,No Primary Consulting Providers: Hill Caro; Foster Rascon; Buster Fuchs;Hill Acuña; Hill Herrmann; Blair Cage; Thiago Wray; Gabbi Hughes; Thai Godfrey; Juan Daniel Garza; Zachariah Glover; Scott Weston; Yue Delgadillo MECHANICAL COMMISSIONING ENGINEER Discharge Orders/Prescriptions Prescriptions: No Action lidocaine 5 [...] or pain) [facility] Week Care Physician,No Primary [Primary Care Provider] - Disposition Disposition (needs filled in before D/C Order can be placed): Acute Care Hospital Charges/Coding Visit Charges Inpatient E&M: 95989 Disch Hosp >30min 11/10/242041 <Electronically signed by Kathie Powers MD> Cosigner Signature (if applicable): CC: Dr. Kathie Powers MD; No Primary Care Physician~ Signed [facility] Work Phone: 1(405) 456-772404-09-2025 Discharge summary Author Kathie Powers [facility] Note Date/Time November 10, 2024 7:37 pm [facility] Medical Records Department [address] [place] [address] Instructions for Home/Discharge Instructions 11/10/241935 MR#: [id number] Acct: [id number] Name: FRANKLIN WIGGINS Rep #:[id number] : 1965 59 From: Kathie Powers MD PCP: Care Physician,No Primary Status :ADM IN Discharge Instructions DC O2, CPAP, BIPAP needs Home O2 Discharge instructions: No Follow Up Care Test Results: Test results from this visit will be discussed in further detail at your follow- up appointment, if applicable. Discharge Plan Admission Admit Date/Time: 10/29/24 00:43 Attending Provider: Kathie Powers Primary Care Provider: Care Physician,No Primary Consulting Providers: Hill Caro; Foster Rascon; Buster Fuchs;Hill Acuña; Hill Herrmann; Blair Cage; Thiago Wray; Gabbi Hughes; Thai Godfrey; Juan Daniel Garza; Zachariah Glover; Scott Weston; Yue Delgadillo MECHANICAL COMMISSIONING ENGINEER Discharge Orders/Prescriptions Prescriptions: No Action lidocaine 5 [...] or pain) [facility] - [facility] Week Care Physician,No Primary [Primary Care Provider] - Disposition Disposition (needs filled in before D/C Order can be placed[facility] 11/10/241936<Electronically signed by Kathie Powers MD>Kathie Powers MD CC: MECHANICAL COMMISSIONING ENGINEER-C Yue Delgadillo; Dr. Hill Herrmann MD; Dr. Hill Acuña MD; Dr. Hill Caro DO; Dr. Thiago Wray MD; Dr. Blair Cage MD; Dr. Foster Gresham MD; Dr. Gabbi Hughes MD; Dr. Buster Fuchs MD; Dr. Thai Godfrey MD; Dr. Zachariah Glover MD; Dr. Juan Daniel Garza MD; Dr. Scott Weston, ; No Primary Care Physician ~ Signed [facility] [facility] Work Phone: [phone] 342-885904-09-2025 Consult note Author Foster Rascon [facility] Note Date/Time November 10, 2024 8:59 am [facility] Medical Records Department [address] [place] [address] Consultation 11/10/24 0857 MR#: [id number] Acct: [id number] Name: FRANKLIN WIGGINS Rep #:[id number] : 1965 59 From: Foster Rascon MD PCP: Care Physician,No Primary Status :ADM IN Location: [facility] [id number]- 1 Consult Date of Consult: 11/10/24 59-year-old [...] or percutaneous procedure. At a later date 11/10/24858 <Electronically signed by Foster Rascon MD> Cosigner Signature (if applicable): CC: No Primary Care Physician~ Signed [facility] Work Phone: [phone] Progress note Author Kathie [facility] Note Date/Time November 09, 2024 9:26 pm [facility] Medical Records Department [address] [place] [address] Progress Note - Hospitalist 11/09/242120 MR#: [id number] Acct: [id number] Name: FRANKLIN WIGGINS Rep #:[id number] : 1965 59 From: Kathie Powers MD PCP: Care Physician,No Primary Status :ADM IN Location: [place] [address] scan w/ ascites and [...] c/s GI. 11/09/242125 <Electronically signed by Kathie Powers MD> Cosigner Signature (if applicable): CC: ~ Signed [facility] Work Phone: [phone] Progress note Author Kathie Powers [facility] Note Date/Time November 09, 2024 6:54 pm [facility] Medical Records Department [address] [place] [address] Progress Note - Hospitalist 11/09/24 1850 MR#: [id number] Acct: [id number] Name: FRANKLIN WIGGINS Rep #:[id number] : 1965 59 From: Kathie Powers MD PCP: Care Physician,No Primary Status :ADM IN Location: [place] [address] Reason for Visit Reason for Visit: Diagnoses [...] 79.1 H, Lymph % (Auto) 8.2 L, Shannon % (Auto) 8.1, Eos % (Auto) 3.0, [...] with interval NG tube removal. Reading Location[facility] Rhythm Strip Rhythm Strip: Sinus Rhythm Rate: [...] monitor urine color and output #DVT ppx: Sinan Powers MD Time spent in the patient's overall evaluation, decision-making process, review of diagnostic data, adjustment of management, discussion with other providers, nursing and ancillary staff involved in patient's care documentation, 42 Minutes Charges/Coding Visit Charges Inpatient E&M: 82911 Subs Hosp L2 11/09/24 7688 <Electronically signed by Kathie Powers MD> Cosigner Signature (if applicable): CC: ~ Signed [facility] Work Phone: [phone] Radiology Diagnostic study [facility]04-08-2025 Radiology Diagnostic study [facility]04-07-2025 Progress note Author Kathie Powers [facility] Note Date/Time November 08, 2024 6:26 pm [facility] Medical Records Department [address] [place] [address] Progress Note - Hospitalist 11/08/24 1441 MR#: [id number] Acct: [id number] Name: FRANKLIN WIGGINS Rep #:[id number] : 1965 59 From: Kathie Powers MD PCP: Care Physician,No Primary Status :ADM IN Location: [place] [address] Reason for Visit Reason for Visit: Diagnoses [...] scale insulin - Changed glucose checks to [facility] - Increase sliding scale factor - Will [...] which was negative #DVT ppx: SCDs Kathie Powers MD Time spent in the patient's overall evaluation, decision-making process, review of diagnostic data, adjustment of management, discussion with other providers, nursing and ancillary staff involved in patient's care documentation, 56 Minutes Charges/Coding Visit Charges Inpatient E&M: 92807 Subs Hosp L3 11/08/24 1503 <Electronically signed by Kathie Powers MD> Cosigner Signature (if applicable): CC: ~ Signed ADDENDUM by Dr. Kathie Powers MD on 11/08/24 at 1826 Addendum Discussed [...] this time 11/08/24 1826<Electronically signed by Kathie Powers MD> Cosigner Signature (if applicable): cc: ~* Signed [facility] Work Phone: [phone] 780-466504-06-2025 Progress note Author Hill Acuña [facility] Note Date/Time November 07, 2024 10:3 8am [facility] Medical Records Department [address] [place] [address] Progress Note - Hospitalist 11/07/24 0913 MR#: [id number] Acct: [id number] Name: FRANKLIN WIGGINS CARMELA Rep #:[id number] : 1965 59 From: Hill Acuña MD PCP: Care Physician,No Primary Status :ADM IN Location: [place] [address] Reason for Visit Reason for Visit: Diagnoses [...] 81.5 H, Lymph % (Auto) 6.9 L, Shannon % (Auto) 6.9, Eos % (Auto) 2.3, [...] ? Requested for PT OT eval and social media community manager to assist with discharge planning ? 11/05/2024; [...] 36 Minutes Charges/Coding Visit Charges Inpatient E&M: 07118 Subs Hosp L2 11/07/24 1038 <Electronically signed by Hill Acuña MD> Cosigner Signature (if applicable): CC: ~ Signed [facility] Work Phone: [phone] 148-455204-05-2025 Progress note Author Hill Acuña [facility] Note Date/Time November 06, 2024 10:5 7am [facility] Medical Records Department [address] [place] [address] Progress Note - Hospitalist 11/06/24 0756 MR#: [id number] Acct: [id number] Name: FRANKLIN WIGGINS Rep #:[id number] : 1965 59 From: Hill Acuña MD PCP: Care Physician,No Primary Status :ADM IN Location: [place] [address] Reason for Visit Reason for Visit: Diagnoses [...] Intake and Output for Last 24 Hours 04/03/25 04/04/25 04/05/25 23:59 23:59 23:59 Intake Total 800 / [...] ? Requested for PT OT eval and social media community manager to assist with discharge planning ? 11/05/2024; [...] 36 Minutes Charges/Coding Visit Charges Inpatient E&M: 27410 Subs Hosp L2 11/06/24 1057 <Electronically signed by Hill Acuña MD> Cosigner Signature (if applicable): CC: ~ Signed [facility] Work Phone: [phone] Progress note Author Hill Acuña [facility] Note Date/Time November 05, 2024 9:26 am [facility] Medical Records Department [address] [place] [address] Progress Note - Hospitalist 11/05/24 0924 MR#: [id number] Acct: [id number] Name: FRANKLIN WIGGINS Rep #:[id number] : 1965 59 From: Hill Acuña MD PCP: Care Physician,No Primary Status :ADM IN Location: [facility] [id number]- 1 Reason for Visit Reason for Visit: [...] 81.0 H, Lymph % (Auto) 6.7 L, Shannon % (Auto) 7.1, Eos % (Auto) 2.3, [...] ? Requested for PT OT eval and social media community manager to assist with discharge planning ? 11/05/2024; [...] 38 Minutes Charges/Coding Visit Charges Inpatient E&M: 15082 Subs Hosp L2 11/05/24 0926 <Electronically signed by Hill Acuña MD> Cosigner Signature (if applicable): CC: ~ Signed [facility] Work Phone: [phone] 542-325304-03-2025 Progress note Author Hlil Acuña [facility] Note Date/Time November 04, 2024 11:5 0am [facility] Medical Records Department [address] [place] [address] Progress Note - Hospitalist 11/04/24 1105 MR#: [id number] Acct: [id number] Name: FRANKLIN WIGGINS Rep #:[id number] : 1965 59 From: Hill Acuña MD PCP: Care Physician,No Primary Status :ADM IN Location: [facility] [id number]- 1 Reason for Visit Reason for Visit: [...] 83.6 H, Lymph % (Auto) 4.9 L, Shannon % (Auto) 5.9, Eos % (Auto) 1.1, [...] ? Requested for PT OT eval and social media community manager to assist with discharge planning Time spent in the patient's overall evaluation,decision-making process, review of diagnostic data, adjustment of management, discussion with other providers, nursing nursing and ancillary staff involved in patient's care documentation, 38 Minutes Charges/Coding Visit Charges Inpatient E&M: 34315 Subs Hosp L2 11/04/24 1150 <Electronically signed by Hill Acuña MD> Cosigner Signature (if applicable): CC: ~ Signed [facility] Work Phone: [phone] Progress note Author [facility] Note Date/Time November 04, 2024 6:43 am [facility] Medical Records Department [address] [place] [address] Progress Note - Hospitalist 11/04/24 0642 MR#: [id number] Acct: [id number] Name: FRANKLIN WIGGINS Rep #:[id number] : 1965 59 From: Maria Guadalupe Shore MD PCP: Care Physician,No Primary Status :ADM IN Location: [place] [address] Hospitalist Note Patient with 15 beat asymptomatic VT. Electrolytes recently checked, mag normal range, K normal range. 11/04/24 0643 <Electronically signed by Maria Guadalupe Shore MD> Cosigner Signature (if applicable): CC: ~ Signed [facility] Work Phone: [phone] 290-290504-03-2025 Progress note Author Maria Guadalupe Shore [facility] Note Date/Time November 03, 2024 10:3 8pm [facility] Medical Records Department [address] [place] [address] Progress Note - Hospitalist 11/03/242236 MR#: [id number] Acct: [id number] Name: GEREMIASFRANKLIN Rep #:[id number] : 1965 59 From: Maria Guadalupe Shore MD PCP: Care Physician,No Primary Status :ADM IN Location: [place] [address] Hospitalist Note Patient with mildly tachycardia through the late afternoon and evening. Will administer 500 cc bolus and reassess. From review of medications not normally onBB therapy. 11/03/242237 <Electronically signed by Maria Guadalupe Shore MD> Cosigner Signature (if applicable): CC: ~ Signed [facility] Work Phone: [phone] Progress note Author [facility] Note Date/Time November 03, 2024 10:2 7am [facility] Medical Records Department [address] [place] [address] Progress Note - Hospitalist 11/03/24 1025 MR#: [id number] Acct: [id number] Name: FRANKLIN WIGGINS Rep #:[id number] : 1965 59 From: Hill Acuña MD PCP: Care Physician,No Primary Status :ADM IN Location: [place] [address] Reason for Visit Reason for Visit: Diagnoses [...] ? Requested for PT OT eval and social media community manager to assist with discharge planning Time spent in the patient's overall evaluation,decision-making process, review of diagnostic data, adjustment of management, discussion with other providers, nursing nursing and ancillary staff involved in patient's care documentation, 38 Minutes Charges/Coding Visit Charges Inpatient E&M: 73569 Subs Hosp L2 11/03/24 1027 <Electronically signed by Hill Acuña MD> Cosigner Signature (if applicable): CC: ~ Signed [facility] Work Phone: [phone] Progress note Author Hill Acuña [facility] Note Date/Time November 02, 2024 10:0 5am [facility] Medical Records Department [address] [place] [address] Progress Note - Hospitalist 11/02/24 0804 MR#: [id number] Acct: [id number] Name: FRANKLIN WIGGINS Rep #:[id number] : 1965 59 From: Hill Acuña MD PCP: Care Physician,No Primary Status :ADM IN Location: [place] [address] Reason for Visit Reason for Visit: Diagnoses [...] 50 Minutes Charges/Coding Visit Charges Inpatient E&M: 48963 Subs Hosp L3 11/02/24 1005 <Electronically signed by Hill Acuña MD> Cosigner Signature (if applicable): CC: ~ Signed [facility] Work Phone: [phone] 490-350203-31-2025 Progress note Author Hill Glasskarma [facility] Note Date/Time November 01, 2024 11: 41am [facility] Medical Records Department [address] [place] [address] Progress Note - Hospitalist 11/01/24 1128 MR#: [id number] Acct: [id number] Name: FRANKLIN WIGGINS Rep #:[id number] : 1965 59 From: Hill Acuña MD PCP: Care Physician,No Primary Status :ADM IN Location: [place] [address] Reason for Visit Reason for Visit: Diagnoses [...] 50 Minutes Charges/Coding Visit Charges Inpatient E&M: 22978 Subs Hosp L3 11/01/24 1141 <Electronically signed by Hill Acuña MD> Cosigner Signature (if applicable): CC: ~ Signed [facility] Work Phone: [phone] Progress note Author Niranjan Li [facility] Note Date/Time November 01, 2024 8:4 4am [facility] Medical Records Department [address] [place] [address] [place] [address] Progress Note 11/01/24 0836 MR#: [id number] Acct: [id number] Name: FRANKLIN WIGGINS Rep #:[id number] : 1965 59 From: Niranjan Friend PCP: Care Physician,No Primary Status :ADM IN Location: [place] [address] Progress Note Patient has a little bit [...] doses of vancomycin. Visit Charges Inpatient E&M: 65277 [facility] Hosp L3 11/01/24 0844 <Electronically signed by Niranjan Li DO> Niranjan Li DO Cosigner Signature (if applicable): CC: ~ Signed [facility] Work Phone: [phone] Consult note Author Ale Renee [facility] Note Date/Time November 01, 2024 6:1 1am [facility] Medical Records Department [address] [place] [address] Pharmacokinetic/Renal -Consult 11/01/24 0604 MR#: [id number] Acct: [id number] Name: FRANKLIN WIGGINS Rep #:[id number] : 1965 59 From: Ale Renee PCP: Care Physician,No Primary Status :ADM IN Location: [place] [id number]- Consult Antibiotic Management Pharmacy has been consulted [...] Labs: Trough: Vancomycin (11/02/24 @ 16:30) 11/01/24 06 <Electronically signed by Ale Renee> Date _ Ale Renee 11/01/24 0611 <Electronically signed by Hill Stiles DO> Cosigner Signature (if applicable): Date Hill Caro DO CC: ~ Signed [facility] Work Phone: [phone] Progress note Author Buster Fuchs [facility] Note Date/Time October 31, 2024 9:5 5am [facility] Medical Records Department [address] [place] [address] Progress Note - Hospitalist 10/31/24951 MR#: [id number] Acct: [id number] Name: FRANKLIN WIGGINS Rep #:[id number] : 1965 59 From: [...] (Auto) 80.3 H, Lymph %(Auto) 5.9 L, Shannon % (Auto) 7.9, Eos % (Auto) 1.5, [...] they did add IV Flagyl ? Appreciate steel division supervisor assistance 2. Acute metabolic cephalopathy with [...] DVT: SCDs Charges/Coding Visit Charges Inpatient E&M: 48313 Subs Hosp L2 10/31/24 0955 <Electronically signed by Buster Fuchs MD> Cosigner Signature (if applicable): CC: ~ Signed [facility] Work Phone: [phone] Consult note Author Foster Rascon [facility] Note Date/Time October 31, 2024 7:3 1am [facility] Medical Records Department [address] [place] [address] Consultation 10/31/24 0730 MR#: [id number] Acct: [id number] Name: FRANKLIN WIGGINS Rep #:[id number] : 1965 59 From: [...] applicable): CC: No Primary Care Physician~ Signed [facility] Work Phone: [phone] Consult note Author Niranjan Li [facility] Note Date/Time October 30, 2024 9:3 4pm [facility] Medical Records Department [address] [place] [address] Consultation - GI 10/30/242047 MR#: [id number] Acct: [id number] Name: FRANKLIN WIGGINS Rep #:[id number] : 1965 59 From: Niranjan Li DO PCP: Care Physician,No Primary Status :ADM IN Location: ICU ICU02-1 HPI Consult Data Date of Consult: 10/30/24 HPI Narrative Reason for Consultation: Cirrhosis HPI Narrative: FRANKLIN WIGGINS, is a 59 M with a past [...] of yellow-colored fluid removed. He presented backto [facility] ER complaining of abdominal pain, back pain [...] He is also on Zosyn for urosepsis. [facility] Medical History Chronic hypotension Obesity (BMI [...] 85.6 H, Lymph % (Auto) 4.3 L, Shannon % (Auto) 7.3, Eos % (Auto) 0.5, [...] NG tube in satisfactory position. Reading Location: [facility] Assessment & Plan Assessment/Plan (1) Sepsis: [...] this admission. Charges/Coding Visit Charges Inpatient E&M: 41415 Init Hosp L3 10/30/242133 <Electronically signed by Niranjan Li DO> Cosigner Signature (if applicable): CC: No Primary Care Physician~ Signed [facility] Work Phone: [phone] Consult note Author Kourtney Reece [facility] Note Date/Time October 30, 2024 4:[address] [place] [address] Medical Records Department [address] [place] [address] Pharmacokinetic/Renal -Consult 10/30/24 1552 MR#: [id number] Acct: [id number] Name: FRANKLIN WIGGINS Rep #:[id number] : 1965 59 From: [...] Date Buster Fuchs MD CC: ~ Signed [facility] Work Phone: [phone] Progress note Author Jeff [facility] Note Date/Time October 30, 2024 10: 45am [facility] Medical Records Department [address] [place] [address] Progress Note - Restaurant Supervisor 10/30/24 1037 MR#: [id number] Acct: [id number] Name: FRANKLIN WIGGINS Rep #:[id number] : 1965 59 From: [...] 1 Mg Tablet PO 1 mg BREAKFAST KRYSITN Administration Vancomycin IV-PHARMACY TO DOSE 500 mls [...] Lidocaine 5% Patch TOPICAL Not Given DAILY [facility] Protocol Midodrine 10 mg 10/29/24 02:00 [...] 85.5 H, Lymph % (Auto) 4.6 L, Shannon % (Auto) 7.4, Eos % (Auto) 1.2, [...] 85.6 H, Lymph % (Auto) 4.3 L, Shannon % (Auto) 7.3, Eos % (Auto) 0.5, [...] NG tube in satisfactory position. Reading Location: [facility] Assessment and Plan . Assessment and [...] Cosigner Signature (if applicable): CC: ~ Signed [facility] Work Phone: [phone] Consult note Author Foster Rascon [facility] Note Date/Time October 30, 2024 9:5 8am [facility] Medical Records Department [address] [place] [address] Consultation - Urology 10/30/24 0956 MR#: [id number] Acct: [id number] Name: FRANKLIN WIGGINS Rep #:[id number] : 1965 59 From: Foster Rascon MD PCP: Care Physician,No Primary Status :ADM IN Location: ICU ICU02-1 HPI Consult Data Date of Consult: 10/30/24 HPI Narrative Reason for Consultation: Follow-up on infected staghorn calculus HPI Narrative: FRANKLIN WIGGINS, is a 59 male who I saw [...] not available on the weekend here at [facility]. We discussed transferring to other hospital for nephrostomy tube placement. We could also have a nephrostomy tube placed on Friday if radiology services are available. For now we will continue with broad-spectrum antibiotics await culture results but if things progress I think he is going to need nephrostomy tube we will continue to follow. [facility] Medical History Chronic hypotension Obesity (BMI [...] 85.5 H, Lymph % (Auto) 4.6 L, Shannon % (Auto) 7.4, Eos % (Auto) 1.2, [...] 85.6 H, Lymph % (Auto) 4.3 L, Shannon % (Auto) 7.3, Eos % (Auto) 0.5, [...] NG tube in satisfactory position. Reading Location: [facility] 10/30/24 0958 <Electronically signed by Foster Rascon MD> Cosigner Signature (if applicable): CC: No Primary Care Physician~ Signed [facility] Work Phone: [phone] Progress note Author Buster Fuchs [facility] Note Date/Time October 30, 2024 8:2 9am [facility] Medical Records Department [address] [place] [address] Progress Note - Hospitalist 10/30/24819 MR#: [id number] Acct: [id number] Name: FRANKLIN WIGGINS CARMELA Rep #:[id number] : 1965 59 From: [...] 85.5 H, Lymph % (Auto) 4.6 L, Shannon % (Auto) 7.4, Eos % (Auto) 1.2, [...] 85.6 H, Lymph % (Auto) 4.3 L, Shannon % (Auto) 7.3, Eos % (Auto) 0.5, [...] 3. Left-sided ureteral stent noted. Reading Location: [facility] Rhythm Strip Rhythm Strip: Sinus Rhythm Rate: [...] antibiotics ? Cultures are pending ? Appreciate steel division supervisor assistance 2. Acute metabolic cephalopathy with [...] DVT: SCDs Charges/Coding Visit Charges Inpatient E&M: 53299 Subs Hosp L2 10/30/24 0829 <Electronically signed by Buster Fuchs MD> Cosigner Signature (if applicable): CC: ~ Signed [facility] Work Phone: [phone] Radiology Diagnostic study [facility]03-28-2025 Consult note Author Foster Rascon [facility] Note Date/Time October 29, 2024 10: 32am [facility] Medical Records Department [address] [place] [address] Consultation - Urology 10/29/24 0808 MR#: [id number] Acct: [id number] Name: FRANKLIN WIGGINS Rep #:[id number] : 1965 59 From: [...] Staghorn calculus and infection HPI Narrative: FRANKLIN WIGGINS, is a gentleman who has a large [...] emergency intervention is necessary from my standpoint [facility] Medical History Chronic hypotension Obesity (BMI [...] 83.0 H, Lymph % (Auto) 5.6 L, Shannon % (Auto) 8.4, Eos % (Auto) 1.4, [...] vertebral body compression fracture deformities. Reading Location: [facility] 10/29/24 1032 <Electronically signed by Foster Rascon MD> Cosigner Signature (if applicable): CC: No Primary Care Physician~ Signed [facility] Work Phone: [phone] Consult note Author Bola Meraz [facility] Note Date/Time October 29, 2024 10: 24am [facility] Medical Records Department [address] [facility] [place] [address] Consultation - Restaurant Supervisor 10/29/24 0744 MR#: [id number] Acct: [id number] Name: FRANKLIN WIGGINS Rep #:[id number] : 1965 59 From: [...] coverage initiated. This note was generated with ADOR dictation software. It may contain incorrectwords, spelling, [...] stable, without the need for vasopressor support. [facility] Medical History Chronic hypotension Obesity (BMI [...] 83.0 H, Lymph % (Auto) 5.6 L, Shannon % (Auto) 8.4, Eos % (Auto) 1.4, [...] vertebral body compression fracture deformities. Reading Location: [id number] Charges/Coding Visit Charges Inpatient E&M: 57460 Init Hosp L3 10/29/24 1024 <Electronically signed by Bola Meraz DO> Cosigner Signature (if applicable): CC: No Primary Care Physician~ Signed [facility] Work Phone: [phone] Radiology Diagnostic study [facility]03-28-2025 History and physical note Author Hill Wright [facility] Note Date/Time October 29, 2024 6:4 7am [facility] Medical Records Department [address] [place] [address] H&P Exam - Hospitalist 10/29/24 0033 MR#: [id number] Acct: [id number] Name: FRANKLIN WIGGINS Rep #:[id number] : 1965 59 From: Hill Luna DO PCP: Care Physician,No Primary Status :ADM IN Location: ICU ICU02-1 HPI - General General Date of Admission: 10/29/24 Date of Service: 10/29/24 Chief Complaint: Abdominal, Back Pain and Diarrhea. HPI Narrative FRANKLIN WIGGINS, is a 59 M with a past [...] toSeptember 02, 2024 with patient diagnosed with ukdkr-zr-inrrucz hypotension in thesetting of acute hepatic encephalopathy [...] fluid removed who once again presents to [facility] ER complaining of abdominal pain, back pain and diarrhea. Mr. Wiggins is a very limited historian - but [...] thatis expected to extend beyond 2 midnights. [facility] Medical History Chronic hypotension Obesity (BMI [...] 83.0 H, Lymph % (Auto) 5.6 L, Shannon % (Auto) 8.4, Eos % (Auto) 1.4, [...] vertebral body compression fracture deformities. Reading Location: [facility] Assessment & Plan Assessment/Plan (1) Sepsis: QUALIFIERS: [...] and sensitivity data. Give acetaminophen prn for apbk-ez-filkixbi (level 1-5/10) pain or fever. Give morphine [...] appreciated in advance. Finally, we will consult steel division supervisor to see this patient on-rounds in the AM for further recommendations with help appreciated in advance. 2. Admission here from August 29, 2024 to September 02, 2024 with patient diagnosed with jzpda-gn-uvskzzn hypotension in the setting of acute hepatic [...] responsive hypotension Charges/Coding Visit Charges Inpatient E&M: 89170 Init Hosp L3 10/29/24 0647 <Electronically signed by Hill Caro DO> Cosigner Signature (if applicable): CC: Dr. Hill Caro DO; No Primary Care Physician~ Signed [facility] Work Phone: 1(392) 773-133103-28-2025 Consult note Author Ale Renee [facility] Note Date/Time October 29, 2024 3:3 4am [facility] Medical Records Department [address] [place] [address] Pharmacokinetic/Renal -Consult 10/29/24316 MR#: [id number] Acct: [id number] Name: FRANKLIN WIGGINS Rep #:[id number] : 1965 59 From: [...] Follow-Up Labs: Trough: Vancomycin (10/30/24 @ 14:30) 10/29/24 0318 <Electronically signed by Ale Renee> Date _ Ale Renee 10/29/24 033 <Electronically signed by Hill Herrono DO> Cosigner Signature (if applicable): Date Hill Caro DO CC: ~ Signed [facility] Work Phone: [phone]) [phone] Discharge summary Author Alber Dunn [facility] Note Date/Time October 29, 2024 1:0 4am [facility] Medical Records Department [address] [place] [address] Emergency Department Summary 10/28/24 MR#: [id number] Acct: [id number] Name: FRANKLIN WIGGINS Rep #:[id number] : 1965 59 From: [...] similar symptoms: Yes Recent Illness/Hospitalization: No PFSH PFS Medical History Chronic hypotension Obesity (BMI 30-39.9) [...] There is a pressure was 81/50 5 vflykk12/60 when I am in the room it [...] 83.0 H Lymph % (Auto) 5.6 L Shannon % (Auto) 8.4 Eos % (Auto) 1.4 [...] Clarity Cloudy Urine pH 6.5 Ur Specific Amanda 1.015 Urine Protein 500 H Urine Glucose [...] vertebral body compression fracture deformities. Reading Location: [facility] Rhythm Strip Rhythm Strip: Sinus Rhythm Rate: 83 Ectopy: None EKG Initial EKG: Attestation: I personally reviewed and interpreted this EKG as follows: Interpretation: Sinus Rhythm and No Acute Injury Pattern Comments: Normal sinus rhythm rate 83 no acute signs of ID or ischemia. No dysrhythmia. Critical Care Time Critical Care Time: Yes Critical care time (excluding procedures): 30-74 minutes, Including time spent:,Discussing w/Patient &/or Family/Investigation Division Captain, Discussing w/Consultants, ArrangingAdmission or Transfer, Performing Direct Patient Care at Bedside and - (38 min) Discharge Plan Dx/Rx/DC Orders Clinical Impression: Chronic back pain, Chronic abdominal pain, Leukocytosis, Acute UTI, Acute hypotension, Acidosis, lactic, Sepsis Disposition Disposition: [facility] What to do if you have Problems For any increased pain, shortness of breath, bleeding, nausea or vomiting, chestpain, or any unexpected problems, contact your Primary Care Provider. Call [facility] ([phone]) or report to the closest Emergency Room. Call 911 if necessary. 10/29/24 010 <Electronically signed by Alber Dunn MD> Cosigner Signature (if applicable): CC: No Primary Care Physician ~ Signed [facility] Work Phone: 1([phone]) 712-811003-28-2025 Evaluation note* Diagnosis Onset Date Resolution Status Admit Date Clostridium difficile colitis acute October 29, 2024 12:43am History of uric acid staghor n calculus acute October 29, 2024 12:43am Hyponatremia acute October 29, 2024 12:43am Leukocytosis acute October 29, 2024 12:43am Obesity (BMI 30.0-34.9) acute M arch 2024 12:43am Chronic abdominal pain chronic [facility] 2024 12:43am Chronic back pain chronic [...] 2024 7:00am Lactic acidosis acute January 7:00am [facility] Work Phone: 1([phone] 273-923503-28-2025 Evaluation note* Diagnosis Onset Date Resolution Status [...] January 28 7:00am Hepatic encephalopathy acute Ju ne 2024 7:00am Lactic acidosis acute January 7:00am Umbilical hernia acute January 7:00am [facility] Work Phone: [phone] Evaluation note* Diagnosis Onset Date Resolution Status Admit Date Clostridium difficile colitis acute October 29, 2024 12:43am History of uric acid staghor n calculus acute October 29, 2024 12:43am Hyponatremia acute October 29, 2024 12:43am Leukocytosis acute October 29, 2024 12:43am Obesity (BMI 30.0-34.9) acute M arch 2024 12:43am Chronic abdominal pain chronic [facility] 2024 12:43am Chronic back pain chronic [...] January 7:00am Umbilical hernia inactive January 7:00am [facility] Work Phone: [phone] 122-150303-28-2025 Evaluation note* Diagnosis Onset Date Resolution Status Admit Date Clostridium difficile colitis acute October 29, 2024 12:43am History of uric acid staghor n calculus acute October 29, 2024 12:43am Hyponatremia acute October 29, 2024 12:43am Leukocytosis acute October 29, 2024 12:43am Obesity (BMI 30.0-34.9) acute 2024 12:43am Chronic abdominal pain chronic [facility] 2024 12:43am Chronic back [...] January 7:00am Umbilical hernia inactive January 7:00am Cirrhosis of liver with ascites acut e February 16, 2025 6:26pm Elevated liver enzymes acute 2024 6:26pm History of diabetes mellitus acute February 16, 2025 6:26pm Hyperammonemia acute February 16, 2025 6:26pm Chronic anemia chronic February 16, 2025 6:26pm [facility] Work Phone: [phone] Discharge summary [facility] Medical Records Department [address] [place] [address] Emergency Department Summary 10/28/24 MR#: [id number] Acct: [id number] Name: FRANKLIN WIGGINS Rep #:[id number] : 1965 59 From: [...] Prior similar symptoms: Yes Recent Illness/Hospitalization: [facility] Medical History Chronic hypotension Obesity (BMI [...] There is a pressure was 81/50 5 ohfitg69/60 when I am in the room it [...] sepsis. Currently he is stable at12:10 AM. [facility] blood pressure is 110/67. Spoke to [...] 83.0 H Lymph % (Auto) 5.6 L Shannon % (Auto) 8.4 Eos % (Auto) 1.4 [...] Clarity Cloudy Urine pH 6.5 Ur Specific Amanda 1.015 Urine Protein 500 H Urine Glucose [...] vertebral body compression fracture deformities. Reading Location[facility] Rhythm Strip Rhythm Strip: Sinus Rhythm Rate: 83 Ectopy: None EKG Initial EKG: Attestation: I personally reviewed and interpreted this EKG as follows: Interpretation: Sinus Rhythm and No Acute Injury Pattern Comments: Normal sinus rhythm rate 83 no acute signs of ID or ischemia. No dysrhythmia. Critical Care Time Critical Care Time: Yes Critical care time (excluding procedures): 30-74 minutes, Including time spent:,Discussing w/Patient &/or Family/Investigation Division Captain, Discussing w/Consultants, ArrangingAdmission or Transfer, Performing Direct Patient Care at Bedside and - (38 min) Discharge Plan Dx/Rx/DC Orders Clinical Impression: Chronic back pain, Chronic abdominal pain, Leukocytosis, Acute UTI, Acute hypotension, Acidosis, lactic, Sepsis Disposition Disposition: [facility] What to do if you have Problems For any increased pain, shortness of breath, bleeding, nausea or vomiting, chestpain, or any unexpected problems, contact your Primary Care Provider. Call [facility] ([phone]) or report tothe closest Emergency Room. Call 911 if necessary. 10/29/24 0104 Cosigner Signature (if applicable): CC: No Primary Care Physician ~ Signed [facility]03-27-2025 Radiology Diagnostic study note [facility] Imaging Services [address] [place] [address] Abdomen/Pelvis W IV Cont ONLY MR#: [id number] Acct: [id number] Name: FRANKLIN WIGGINS Rep #: [id number] : 1965 M 59 From: Cassandra Starkey MD PCP: Care Physician,No Primary Status: REG ER Study:Abdomen/Pelvis W IV Cont ONLY Date of E xam: 10/28/24 Exam# [id number] Ordering Dr: Tee Dunn MD PROCEDURE: ABDOMEN/PELVIS [...] vertebral body compression fracture deformities. Reading Location: [id number] CC: Dr. Alber Dunn MD; No Primary Care Physician ~ Psychology Technician: Signed [facility]03-27-2025 Discharge summary Author Alber Dunn [facility] Note Date/Time October 29, 2024 1:0 4am [facility] Medical Records Department [address] [place] [address] Emergency Department Summary 10/28/24 MR#: [id number] Acct: [id number] Name: FRANKLIN WIGGINS Rep #:[id number] : 1965 59 From: [...] There is a pressure was 81/50 5 koteep87/60 when I am in the room it [...] 83.0 H Lymph % (Auto) 5.6 L Shannon % (Auto) 8.4 Eos % (Auto) 1.4 [...] Clarity Cloudy Urine pH 6.5 Ur Specific Amanda 1.015 Urine Protein 500 H Urine Glucose [...] vertebral body compression fracture deformities. Reading Location: [facility] Rhythm Strip Rhythm Strip: Sinus Rhythm Rate: 83 Ectopy: None EKG Initial EKG: Attestation: I personally reviewed and interpreted this EKG as follows: Interpretation: Sinus Rhythm and No Acute Injury Pattern Comments: Normal sinus rhythm rate 83 no acute signs of ID or ischemia. No dysrhythmia. Critical Care Time Critical Care Time: Yes Critical care time (excluding procedures): 30-74 minutes, Including time spent:,Discussing w/Patient &/or Family/Investigation Division Captain, Discussing w/Consultants, ArrangingAdmission or Transfer, Performing Direct Patient Care at Bedside and - (38 min) Discharge Plan Dx/Rx/DC Orders Clinical Impression: Chronic back pain, Chronic abdominal pain, Leukocytosis, Acute UTI, Acute hypotension, Acidosis, lactic, Sepsis Disposition Disposition: [facility] What to do if you have Problems For any increased pain, shortness of breath, bleeding, nausea or vomiting, chestpain, or any unexpected problems, contact your Primary Care Provider. Call [facility] ([phone]) or report to the closest Emergency Room. Call 911 if necessary. 10/29/24 0104 <Electronically signed by Alber Dunn MD> Cosigner Signature (if applicable): CC: No Primary Care Physician ~ Signed [facility] Work Phone: 1([phone]) 229-784303-03-2025 Procedure note* Joey Huang DO - 10/04/2024 5:17 PM ESTAssociated Order(s): Paracentesis Post-Procedure Diagnose(s): Other ascites Paracentesis Date/Time: 10/04/2024 5:17 PM Performed by: Joey Huang DO Authorized by: Joey Huang DO Consent: Consent obtained: Written Consent given by: Patient Risks, benefits, and alternatives were discussed: yes Risks discussed: Bleeding, bowel perforation and infection Alternatives discussed: No treatment [place] protocol: Procedure explained and questions answered to [...] Adhesive bandage Post-procedure details: Procedure completion: Tolerated [facility] Work Phone: 1(485) 385-738603-03-2025 Procedure note* Joey Huang DO - 10/04/2024 5:17 PM ESTAssociated Order(s): Paracentesis Post-Procedure Diagnose(s): Other ascites Paracentesis Date/Time: 10/04/2024 5:17 PM Performed by: Joey Huang DO Authorized by: Joey Huang DO Consent: Consent obtained: Written Consent given by: Patient Risks, benefits, and alternatives were discussed: yes Risks discussed: Bleeding, bowel perforation and infection Alternatives discussed: No treatment [place] protocol: Procedure explained and questions answered to [...] details: Procedure completion: Tolerated documented in this [facility] Work Phone: 1([phone]) 240-309603-03-2025 Consult note* Joey Huang DO - 10/04/2024 5:13 PM EST Reason For Consult Ascites History Of Present Illness Franklin Wiggins is a 59 y.o. male presenting with abdominal pain. He presented to the emergency room from [facility] secondary to increasing abdominal girth pain and ascites He was recently drained at [facility] for his ascites His abdomen is [...] call Assessment & Plan Joey Huang DO [facility] Work Phone: [phone] 110-262703-03-2025 Consult note* Joey Huang DO - 10/04/2024 5:13 PM EST Reason For Consult Ascites History Of Present Illness Franklin Wiggins is a 59 y.o. male presenting with abdominal pain. He presented to the emergency room from [facility] secondary to increasing abdominal girth pain and ascites He was recently drained at [facility] for his ascites His abdomen is [...] is to call Assessment & Plan Joey M Young, DO documented in this [facility] Work Phone: [phone]) [phone] Physician Emergency department Note* Sriram Oleary PA-C [...] Abnormality Status --------- ------ Urinalysis with Reflex C...[[id number]] Extra Urine Toney Tube[[id number]] Please view results for these tests on the individual orders. URINALYSIS WITH REFLEX CULTURE AND MICROSCOPIC EXTRA URINE TONEY TUBE PH, BODY FLUID LACTATE DEHYDROGENASE, BODY FLUID Narrative: The following orders were created for panel order Lactate Dehydrogenase, Body Fluid. Procedure Abnormality Status --------- ------ Lactate Dehydrogenase, B...[[id number]] In process Please view results for these tests on the individual orders. GLUCOSE, BODY FLUID Narrative: The following orders were created for panel order Glucose, Body Fluid. Procedure Abnormality Status --------- ------ Glucose, Body Fluid[[id number]] In process Please view results for these tests on the individual orders. PROTEIN, TOTAL, BODY FLUID Narrative: The following orders were created for panel order Protein, Total, Body Fluid. Procedure Abnormality Status --------- ------ Protein, Total, Body Fluid[[id number]] In process Please view results for these tests on the individual orders. BODY FLUID CELL COUNT WITH DIFFERENTIAL Narrative: The following orders were created for panel order Body Fluid Cell Count With Differential. Procedure Abnormality Status --------- ------ Body Fluid Cell Count[[id number]] In process Body Fluid Differential[[id number]] In process Please view results for these tests on the individual orders. ALBUMIN, BODY FLUID Narrative: The following orders were created for panel order Albumin, Body Fluid. Procedure Abnormality Status --------- ------ Albumin, Body Fluid[[id number]] In process Please view results for these [...] Yohana Huang 10/04/2024 2:28 PM Dictation workstation: [id number] Procedures Medical Decision Making Patient is a 59-year-old male with a hx of cirrhosis who presents to the emergency department with a chief complaint of abdominal pain from [facility]. He reports increased abdominal pain that he describes as generalized, states that his abdomen is distended. Recently had a paracentesis performed at [facility] on September 29. Patient reports that [...] cirrhosis type (Multi) Sriram Oleary PA-C 10/04/241736 [facility] Work Phone: 1([phone]) 190-158003-03-2025 Emergency department Note* Sriram Oleary PA-C - [...] Abnormality Status --------- ------ Urinalysis with Reflex C...[[id number]] Extra Urine Toney Tube[[id number]] Please view results for these tests on the individual orders. URINALYSIS WITH REFLEX CULTURE AND MICROSCOPIC EXTRA URINE TONEY TUBE PH, BODY FLUID LACTATE DEHYDROGENASE, BODY FLUID Narrative: The following orders were created for panel order Lactate Dehydrogenase, Body Fluid. Procedure Abnormality Status --------- ------ Lactate Dehydrogenase, B...[[id number]] In process Please view results for these tests on the individual orders. GLUCOSE, BODY FLUID Narrative: The following orders were created for panel order Glucose, Body Fluid. Procedure Abnormality Status --------- ------ Glucose, Body Fluid[[id number]] In process Please view results for these tests on the individual orders. PROTEIN, TOTAL, BODY FLUID Narrative: The following orders were created for panel order Protein, Total, Body Fluid. Procedure Abnormality Status --------- ------ Protein, Total, Body Fluid[[id number]] In process Please view results for these tests on the individual orders. BODY FLUID CELL COUNT WITH DIFFERENTIAL Narrative: The following orders were created for panel order Body Fluid Cell Count With Differential. Procedure Abnormality Status --------- ------ Body Fluid Cell Count[[id number]] In process Body Fluid Differential[[id number]] In process Please view results for these tests on the individual orders. ALBUMIN, BODY FLUID Narrative: The following orders were created for panel order Albumin, Body Fluid. Procedure Abnormality Status --------- ------ Albumin, Body Fluid[[id number]] In process Please view results for these [...] Yohana Huang 10/04/2024 2:28 PM Dictation workstation: [id number] Procedures Medical Decision Making Patient is a 59-year-old male with a hx of cirrhosis who presents to the emergency department with a chief complaint of abdominal pain from [facility]. He reports increased abdominal pain that he describes as generalized, states that his abdomen is distended. Recently had a paracentesis performed at [facility] on September 29. Patient reports that [...] Sriram Oleary PA-C 10/04/241736 documented in this [facility] Work Phone: 1([phone]) 312-445302-26-2025 Evaluation note* Diagnosis Onset Date Resolution Status [...] 2 :16pm Umbilical hernia acute January 2:16pm [facility] Work Phone: 1([phone]) [phone] Procedure note [facility] Medical Records Department [address] [place] [address] Operative Report 09/29/24 1048 MR#: [id number] Acct: [id number] Name: FRANKLIN WIGGINS Rep #:[id number] : 1965 59 From: Jasmine gusman MECHANICAL COMMISSIONING ENGINEER MECHANICAL COMMISSIONING ENGINEER-C PCP: Care Physician,No Primary Status :REG CLI Location: [place] Problems Associated Problem List Diagnoses (1) Abdominal ascites: Multi Select Codes Radiology Radiology [place] Procedures: 78273 Paracentesis Operative Report (Standard) Operative Information Date of Procedure: 09/29/24 Pre-Operative Diagnosis: Abdominal ascites Post-Operative Diagnosis: Abdominal ascites Surgery/Procedure Performed: Ultrasound-guided paracentesis axle bearing polisher: No Type of Anesthesia: Local Procedure Start [...] the peritoneal cavity was accessed with a 5-Turkmen paracentesis needle/catheter system. The trocar was removed. [...] 09/29/24 1053 Cosigner Signature (if applicable): CC: YG Morocho; No Primary Care Physician; DIANE CALLAHAN~ Signed [facility]02-02-2025 Evaluation note* Diagnosis Onset Date Resolution Status Admit Date Ambulatory dysfunction acute bru2024 1:46am Generalized weakness acute uary 2024 1:46am [...] 025 1:46am Obesity (BMI 30-39.9) inactive Sep 1:46am [...] 6:06am Fall acute January 02, 2025 6:06am [facility] Work Phone: 1(335) 914-390602-02-2025 Evaluation note* Diagnosis Onset Date Resolution Status [...] 2024 12:43am Chronic abdominal pain chronic Ma rc 2024 12:43am Chronic back pain chronic October [...] 2:16pm Sepsis acute January 09, 2025 2:16pm [facility] Work Phone: [phone] Evaluation note* Diagnosis Onset Date Resolution Status [...] uar y 2024 1:46am Chronic hypotension inactive u ace 2024 1:46am Hepatic encephalopathy inactive bruary 2024 1:46am Hyperbilirubinemia inactive 2024 1:46am Hypotension inactive September 05, 2024 1:46am 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) inactive September 05 025 1:46am Obesity (BMI 30-39.9) inactive Sep ru2024 1:46am ABBY on CPAP inactive September 05, 2024 1:46am Cirrhosis of liver deleted 2024 1:46am Abdominal ascites acute Februar y 2024 9:35am [facility] Work Phone: 1([phone] 367-213301-27-2025 Evaluation note* Diagnosis Onset Date Resolution Status [...] Abdominal ascites acute uar y 2024 9:35am Acidosis, lactic acute October 292024 12:43am Acute hypotension acute October 032024 12:43am Acute UTI acute October 29 12:43am Diarrhea acute October 29 12:43am History of uric acid staghor n calculus acute October 29, 2024 12:43am Leukocytosis acute October 29, 2024 12:43am Obesity (BMI 30.0-34.9) acute M arch 2024 12:43am Sepsis acute October 29 12:43am Chronic abdominal pain chronic [facility] 2024 12:43am Chronic back pain chronic October 032024 12:43am [facility] Work Phone: [phone] Evaluation note* Diagnosis Onset Date Resolution Status [...] Abdominal ascites acute uar y 2024 9:35am Acidosis, lactic acute October 292024 12:43am Acute hypotension acute October 032024 12:43am Acute UTI acute October 29 12:43am Clostridium difficile colitis acute October 29, 2024 12:43am Diarrhea acute October 29 12:43am History of uric acid staghor n calculus acute October 29, 2024 12:43am Hyponatremia acute October 29, 2024 12:43am Leukocytosis acute October 29, 2024 12:43am Obesity (BMI 30.0-34.9) acute M 2024 12:43am Sepsis acute October 29 12:43am Chronic abdominal pain chronic [facility] 2024 12:43am Chronic back pain chronic October 032024 12:43am [facility] Work Phone: [phone] Evaluation note* Diagnosis Onset Date Resolution Status Admit Date ISABEL (acute kidney injury) inactive August 29, 2024 10:09pm Hepatic encephalopathy inactive nuary 2024 10:09pm Hypotension inactive August 29, [...] Abdominal ascites acute r y 2024 9:35am Clostridium difficile colitis acute October 29, 2024 12:43am History of uric acid staghor n calculus acute October 29, 2024 12:43am Hyponatremia acute October 29, 2024 12:43am Leukocytosis acute October 29, 2024 12:43am Obesity (BMI 30.0-34.9) acute M arch 2024 12:43am Chronic abdominal pain chronic [facility] 2024 12:43am Chronic back pain chronic [...] 4:28am Staghorn calculus acute November 032024 4:28am [facility] Work Phone: [phone] Evaluation note* Diagnosis Onset Date Resolution Status Admit Date ISABEL (acute kidney injury) inactive August 29, 2024 10:09pm Hepatic encephalopathy inactive Ja nuary 2024 10:09pm Hypotension inactive August 29, 2024 10:09pm Ambulatory dysfunction acute Fe 2024 1:46am Generalized weakness acute Febr uary 2024 1:46am Staghorn calculus acute ua2024 1:46am Acute cystitis with hematuria resolv ed September 05, 2024 1:46am Impaired renal function resolved F ebruary 2024 1:46am Lactic acidosis resolved September 05, 2024 1:46am Leukocytosis resolved September 1:46am Metabolic encephalopathy resolved September 05, 2024 1:46am ISABEL (acute kidney injury) inactive September 05, 2024 1:46am Chronic back pain inactive Februar 2024 1:46am Chronic hypotension inactive Febru ace 2024 1:46am Hepatic encephalopathy inactive 2024 1:46am Hyperbilirubinemia inactive ua ry 2024 1:46am Hypotension inactive September 05, 2024 1:46am 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) inactive September 05 1:46am Obesity (BMI 30-39.9) inactive Feb ruary 2024 1:46am ABBY on CPAP inactive September 05, 2024 1:46am Cirrhosis of liver deleted Februa ry 2024 1:46am Abdominal ascites acute Februar y [...] infection) resolv ed November 28, 2024 4:51pm [facility] Work Phone: Discharge summary Author Herberth Carlson [facility] Note Date/Time November 21, 2024 4:1 6am [facility] Medical Records Department [address] [place] [address] Emergency Department Summary 11/21/24 MR#: [id number] Acct: [id number] Name: FRANKLIN WIGGINS Rep #:[id number] : 1965 59 From: [...] discontinue his lactulose. He was recently admitted [facility] for cirrhosis and other issues, he [...] toilet after multiple attempts over couple hours. [facility] Medical History Diarrhea Sepsis Acidosis, lactic Acute [...] (Auto) 68.7 Lymph % (Auto) 13.9 L Shannon % (Auto) 9.2 Eos % (Auto) 7.2 [...] Sl Cldy Urine pH 6.0 Ur Specific Amanda 1.015 Urine Protein 500 H Urine Glucose [...] process. Follow-up to resolution recommended. Reading Location: [facility] Management Discussion w/another healthcare provider: Hospitalist [...] Primary [Primary Care Provider] - Print Language: Dominican Disposition Disposition: Acute Care Hospital [facility] What to do if you have Problems For any increased pain, shortness of breath, bleeding, nausea or vomiting, chestpain, or any unexpected problems, contact your Primary Care Provider. Call [facility] ([phone]) or report to the closest Emergency Room. Call 911 if necessary. 11/21/24 0416 <Electronically signed by Herberth Carlson MD> Cosigner Signature (if applicable): CC: No Primary Care Physician ~ Signed [facility] Work Phone: Discharge summary Author Mina Blood [facility] Note Date/Time December 30, 2024 5:19a m [facility] Medical Records Department [address] [place] [address] Emergency Department Summary 12/30/24 MR#: [id number] Acct: [id number] Name: FRANKLIN WIGGINS Rep #:[id number] : 1965 59 From: [...] recent trauma prior to the pain beginning. [facility] Medical History Weakness Diarrhea Sepsis Acidosis, lactic [...] (Auto) 69.7 Lymph % (Auto) 14.0 L Shannon % (Auto) 9.1 Eos % (Auto) 6.2 [...] Clarity Cloudy Urine pH 6.5 Ur Specific Amanda 1.010 Urine Protein 100 H Urine Glucose [...] No evidence of acute disease. Reading Location: [facility] Chest x-ray as interpreted by the emergency [...] you have any further concerns Print Language: Dominican Disposition Disposition: Home, Self Care What to do if you have Problems For any increased pain, shortness of breath, bleeding, nausea or vomiting, chestpain, or any unexpected problems, contact your Primary Care Provider. Call [facility] ([phone]) or report to the closest Emergency Room. Call 911 if necessary. 12/30/24 0519 <Electronically signed by Mina Blood DO> Cosigner Signature (if applicable): CC: YG Elias ~ Signed [facility] Work Phone: Discharge summary Author Roddy Reeves [facility] Note Date/Time January 02, 2025 6:00a m [facility] Medical Records Department [address] [place] [address] Emergency Department Summary 01/02/25 MR#: [id number] Acct: [id number] Name: FRANKLIN WIGGINS Rep #:[id number] : 1965 59 From: [...] was here recently and was sent home. [facility] Medical History Weakness Diarrhea Sepsis Acidosis, lactic [...] Patient following commands that he was at [facility] that wewere in the end of [...] (Auto) 68.0 Lymph % (Auto) 12.2 L Shannon % (Auto) 11.9 H Eos % (Auto) [...] Clarity Turbid Urine pH 6.0 Ur Specific Amanda 1.015 Urine Protein 100 H Urine Glucose [...] insufficiency fracture again noted, unchanged. Reading Location: [facility] Brain CT 01/02/25 03:55 IMPRESSION: No intracranial hemorrhage, mass effect or calvarial fracture. Moderate volume loss, atrophy again noted. Mild left maxillary sinus disease appears mildly decreased from the prior study. Reading Location: [facility] Cervical Spine CT 01/02/25 03:55 IMPRESSION: No fracture or malalignment. Multilevel spondylosis/discogenic change greatest at C5-6 Reading Location: [facility] Discharge Plan Triage Chief Complaint: Weakness ED [...] Care Provider: Josy Elias Referrals: Josy Elias, MECHANICAL COMMISSIONING ENGINEER-C [Primary Care Provider] - Print Language: Dominican Disposition Disposition: Acute Care Hospital [facility] What to do if you have Problems For any increased pain, shortness of breath, bleeding, nausea or vomiting, chestpain, or any unexpected problems, contact your Primary Care Provider. Call [facility] ([phone]) or report to the closest Emergency Room. Call 911 if necessary. 01/02/25 0600 <Electronically signed by Roddy Reeves DO> Cosigner Signature (if applicable): CC: YG Elias ~ Signed [facility] Work Phone: Discharge summary Author Mina Blood [facility] Note Date/Time February 08, 2025 3:03a m [facility] Medical Records Department [address] [place] [address] Emergency Department Summary 02/08/25 MR#: [id number] Acct: [id number] Name: FRANKLIN WIGGINS Rep #:[id number] : 1965 59 From: [...] bouts of constipation fevers chills or dysuria. [facility] Medical History (Updated 02/08/25 @ 03:03 by [...] x #1,200 ea 01/31/25 Unk nown Rx /16 (Pen Needle) oxycodone 5 mg tablet 5 [...] surgery as fat necrosis is a nonemergent usv-[id number] process. The patient will be given pain [...] 72.8 H Lymph % (Auto) 12.8 L Shannon % (Auto) 8.1 Eos % (Auto) 5.4 [...] double-J stent in place. Anasarca. Reading Location: [place] [address] Discharge Plan Triage Chief Complaint: Abd Pain [...] Ambulatory Orders: Paracentesis with US (Routine) Facility: [facility] - Location: [facility] Ordered By: Dr. Mina Blood Primary Care [...] you have any further concerns. Print Language: Dominican Disposition Disposition: Home, Self Care What to do if you have Problems For any increased pain, shortness of breath, bleeding, nausea or vomiting, chestpain, or any unexpected problems, contact your Primary Care Provider. Call [facility] ([phone]) or report to the closest Emergency Room. Call 911 if necessary. 02/08/25 6708 <Electronically signed by Mina Blood DO> Cosigner Signature (if applicable): CC: Dr. Jerald Sherwood MD ~ Signed [facility] Work Phone: Evaluation note* Diagnosis Other ascites- Primary Abdominal pain, generalized Cirrhosis of liver with ascites, unspecified hepatic cirrhosis type (Multi) Peripheral edema Edema Coagulopathy (Multi) Other and unspecified coagulation defects Hyperbilirubinemia Disorders of bilirubin excretion documented in this encounter [facility] Work Phone: Evaluation note* Diagnosis Metabolic dysfunction-associated steatohepatitis (MASH)- Primary [facility] Diagnosis Liver transplant candidate- Primary Metabolic dysfunction-associated steatohepatitis (MASH) [facility] Diagnosis Pre-transplant evaluation for liver transplant- Primary [facility] Diagnosis Liver transplant candidate- Primary Pre-operative clearance Preoperative examination, unspecified documented in this encounter [facility] note* Diagnosis Screening for genitourinary condition Screening for other and unspecified genitourinary condition [facility] Author Buster Fuchs [facility] Note Date/Time January 02, 2025 6:44a m [facility] Medical Records Department [address] [place] [address] H&P Exam - Hospitalist 01/02/25 0556 MR#: [id number] Acct: [id number] Name: FRANKLIN WIGGINS Rep #:[id number] : 1965 59 From: Buster duarte MD PCP: YG Pena Status:ADM I N [facility] - General General Date of Admission: 01/02/25 HPI Narrative FRANKLIN WIGGINS, is a 59 M who presents to the hospital with weakness and a fall. He did not hit his head or lose consciousness. He has had an extensive recent medical history with cirrhosis and UTI with staghorn calculus, he was in the ICUin October. 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 Was not considered to be a liver transplant candidate and was placed on anticoagulation. He has had a couple of readmissions for weakness and debility. [place] to possibly have aUTI given a staghorn [...] Heis receiving potassium infusion in the ER. [facility] Medical History Weakness Diarrhea Sepsis Acidosis, [...] (Auto) 68.0, Lymph % (Auto) 12.2 L, Shannon % (Auto) 11.9 H, Eos % (Auto) [...] insufficiency fracture again noted, unchanged. Reading Location: [facility] Brain CT 01/02/25 03:55 IMPRESSION: No intracranial hemorrhage, mass effect or calvarial fracture. Moderate volume loss, atrophy again noted. Mild left maxillary sinus disease appears mildly decreased from the prior study. Reading Location: [facility] Cervical Spine CT 01/02/25 03:55 IMPRESSION: No fracture or malalignment. Multilevel spondylosis/discogenic change greatest at C5-6 Reading Location: [facility] Assessment & Plan Assessment/Plan (1) Fall: (2) [...] once verified Charges/Coding Visit Charges Inpatient E&M: 09822 Init Hosp L2 01/02/25 0644 <Electronically signed by Buster Fuchs MD> Cosigner Signature (if applicable): CC: YG Elias; Dr. Buster Fuchs MD~ Signed [facility] Work Phone: Hospital Discharge instructions* Attachments The following attachments cannot be sent through Care Everywhere. * Cirrhosis (Dominican) * Abdominal pain (Dominican) [facility] Work Phone: Hospital Discharge instructions Additional [...] the ER should you have any further [facility] Work Phone: Hospital Discharge instructionsAdditional Instructions [...] the ER should you have any further concerns.[facility] Work Phone: Hospital Discharge instructionsAdditional Instructions Thank you for trusting us with your care today! Please take Tylenol (2 pills, 650 mg), ibuprofen (2 pills, 400 mg) every 6 hours as needed for pain and fever control. Please return to the emergency department if your symptoms change or worsen. Please follow with your primary care physician for further outpatient evaluation and management.[facility] Work Phone: Reason for referral (narrative)No reason for referral information availableWMercy Memorial Hospital Work Phone: Summary Purpose Family History [...] Will No August 21 2:51pm Power of Mechanical Engineering Manager No August 21, 2024 2:51pm Living Will No August 30 12:39am Power of Mechanical Engineering Manager No August 30, 2024 12:39am Living Will No September 05 4:42am Power of Mechanical Engineering Manager No September 05, 2024 4:42am Advance Directive Response Recorded Date/ Time Living Will No August 21 2:51pm Do you have a Healthcare Power of Mechanical Engineering Manager? No August 21, 2024 2:51pm Living Will No August 30 12:39am Do you have a Healthcare Power of Mechanical Engineering Manager? No August 30, 2024 12:39am Living Will No September 05 4:42am Do you have a Healthcare Power of Mechanical Engineering Manager? No September 05, 2024 4:42am Living Will No October 28, 2024 5:24pm Do you have a Healthcare Power of Mechanical Engineering Manager? No October 28, 2024 5:24pm Advance Directive Response Recorded Date/ Time Living Will No August 21 2:51pm Do you have a Healthcare Power of Mechanical Engineering Manager? No August 21, 2024 2:51pm Living Will No August 30 12:39am Do you have a Healthcare Power of Mechanical Engineering Manager? No August 30, 2024 12:39am Living Will No September 05 4:42am Do you have a Healthcare Power of Mechanical Engineering Manager? No September 05, 2024 4:42am Living Will No October 29, 2024 1:46am Do you have a Healthcare Power of Mechanical Engineering Manager? No October 29, 2024 1:46am Date Activated Date Inactivated Comments 11/11/2024 7:22 AM Question Answer Comments Full Code Order Discussed With: Patient Date Activated Date Inactivated Comments 11/11/2024 7:22 AM Advance Directive Response Recorded Date/ Time Living Will No August 21 2:51pm Do you have a Healthcare Power of Mechanical Engineering Manager? No August 21, 2024 2:51pm Living Will No August 30 12:39am Do you have a Healthcare Power of Mechanical Engineering Manager? No August 30, 2024 12:39am Living Will No September 05 4:42am Do you have a Healthcare Power of Mechanical Engineering Manager? No September 05, 2024 4:42am Living Will No October 29, 2024 1:46am Do you have a Healthcare Power of Mechanical Engineering Manager? No October 29, 2024 1:46am Living Will Yes November 21, 2024 1:32am Do you have a Healthcare Power of Mechanical Engineering Manager? Yes November 21, 2024 1:32am Name of Medical Power of Mechanical Engineering Manager anne Hernandez November 21, 2024 1:32am Advance Directive Response Recorded Date/ Time Living Will No August 21 2:51pm Do you have a Healthcare Power of Mechanical Engineering Manager? No August 21, 2024 2:51pm Living Will No August 30 12:39am Do you have a Healthcare Power of Mechanical Engineering Manager? No August 30, 2024 12:39am Living Will No September 05 4:42am Do you have a Healthcare Power of Mechanical Engineering Manager? No September 05, 2024 4:42am Living Will No October 29, 2024 1:46am Do you have a Healthcare Power of Mechanical Engineering Manager? No October 29, 2024 1:46am Living Will Yes November 21, 2024 5:32am Do you have a Healthcare Power of Mechanical Engineering Manager? Yes November 21, 2024 5:32am Name of Medical Power of Mechanical Engineering Manager anne Hernandez November 21, 2024 5:32am Do you have a Healthcare Power of Mechanical Engineering Manager? No November 28, 2024 5:49pm Advance Directive Response Recorded Date/ Time Living Will No August 30 12:39am Do you have a Healthcare Power of Mechanical Engineering Manager? No August 30, 2024 12:39am Living Will No September 05 4:42am Do you have a Healthcare Power of Mechanical Engineering Manager? No September 05, 2024 4:42am Living Will No October 29, 2024 1:46am Do you have a Healthcare Power of Mechanical Engineering Manager? No October 29, 2024 1:46am Living Will Yes November 21, 2024 5:32am Do you have a Healthcare Power of Mechanical Engineering Manager? Yes November 21, 2024 5:32am Name of Medical Power of Mechanical Engineering Manager anne Hernandez November 21, 2024 5:32am Do you have a Healthcare Power of Mechanical Engineering Manager? No November 28, 2024 5:49pm Advance Directive Response Recorded Date/ Time Living Will No August 30 12:39am Do you have a Healthcare Power of Mechanical Engineering Manager? No August 30, 2024 12:39am Living Will No September 05 4:42am Do you have a Healthcare Power of Mechanical Engineering Manager? No September 05, 2024 4:42am Living Will No October 29, 2024 1:46am Do you have a Healthcare Power of Mechanical Engineering Manager? No October 29, 2024 1:46am Living Will Yes November 21, 2024 5:32am Do you have a Healthcare Power of Mechanical Engineering Manager? Yes November 21, 2024 5:32am Name of Medical Power of Mechanical Engineering Manager anne Hernandez November 21, 2024 5:32am Do you have a Healthcare Power of Mechanical Engineering Manager? No November 28, 2024 5:49pm Do you have a Healthcare Power of Mechanical Engineering Manager? No December 26, 2024 10:02am Advance Directive Response Recorded Date/ Time Living Will No August 30 12:39am Do you have a Healthcare Power of Mechanical Engineering Manager? No August 30, 2024 12:39am Living Will No September 05 4:42am Do you have a Healthcare Power of Mechanical Engineering Manager? No September 05, 2024 4:42am Living Will No October 29, 2024 1:46am Do you have a Healthcare Power of Mechanical Engineering Manager? No October 29, 2024 1:46am Living Will Yes November 21, 2024 5:32am Do you have a Healthcare Power of Mechanical Engineering Manager? Yes November 21, 2024 5:32am Name of Medical Power of Mechanical Engineering Manager anne Hernandez November 21, 2024 5:32am Do you have a Healthcare Power of Mechanical Engineering Manager? No November 28, 2024 5:49pm Do you have a Healthcare Power of Mechanical Engineering Manager? No December 26, 2024 10:02am Do you have a Healthcare Power of Mechanical Engineering Manager? No December 30, 2024 1:06am Advance Directive Response Recorded Date/ Time Do you have a Healthcare Power of Mechanical Engineering Manager? No January 02, 2025 2:59am Living Will No September 05 4:42am Do you have a Healthcare Power of Mechanical Engineering Manager? No September 05, 2024 4:42am Living Will No October 29, 2024 1:46am Do you have a Healthcare Power of Mechanical Engineering Manager? No October 29, 2024 1:46am Living Will Yes November 21, 2024 5:32am Do you have a Healthcare Power of Mechanical Engineering Manager? Yes November 21, 2024 5:32am Name of Medical Power of Mechanical Engineering Manager anne Hernandez November 21, 2024 5:32am Do you have a Healthcare Power of Mechanical Engineering Manager? No November 28, 2024 5:49pm Do you have a Healthcare Power of Mechanical Engineering Manager? No December 26, 2024 10:02am Do you have a Healthcare Power of Mechanical Engineering Manager? No December 30, 2024 1:06am Advance Directive Response Recorded Date/ Time Do you have a Healthcare Power of Mechanical Engineering Manager? No January 02, 2025 8:14am Living Will No September 05 4:42am Do you have a Healthcare Power of Mechanical Engineering Manager? No September 05, 2024 4:42am Living Will No October 29, 2024 1:46am Do you have a Healthcare Power of Mechanical Engineering Manager? No October 29, 2024 1:46am Living Will Yes November 21, 2024 5:32am Do you have a Healthcare Power of Mechanical Engineering Manager? Yes November 21, 2024 5:32am Name of Medical Power of Mechanical Engineering Manager anne Hernandez November 21, 2024 5:32am Do you have a Healthcare Power of Mechanical Engineering Manager? No November 28, 2024 5:49pm Do you have a Healthcare Power of Mechanical Engineering Manager? No December 26, 2024 10:02am Do you have a Healthcare Power of Mechanical Engineering Manager? No December 30, 2024 1:06am Advance Directive Response Recorded Date/ Time Do you have a Healthcare Power of Mechanical Engineering Manager? No January 02, 2025 8:14am Living Will No September 05 4:42am Do you have a Healthcare Power of Mechanical Engineering Manager? No September 05, 2024 4:42am Living Will No October 29, 2024 1:46am Do you have a Healthcare Power of Mechanical Engineering Manager? No October 29, 2024 1:46am Living Will Yes November 21, 2024 5:32am Do you have a Healthcare Power of Mechanical Engineering Manager? Yes November 21, 2024 5:32am Name of Medical Power of Mechanical Engineering Manager anne Hernandez November 21, 2024 5:32am Do you have a Healthcare Power of Mechanical Engineering Manager? No November 28, 2024 5:49pm Do you have a Healthcare Power of Mechanical Engineering Manager? No December 26, 2024 10:02am Do you have a Healthcare Power of Mechanical Engineering Manager? No December 30, 2024 1:06am Do you have a Healthcare Power of Mechanical Engineering Manager? No January 09, 2025 10:10am Advance Directive Response Recorded Date/ Time Do you have a Healthcare Power of Mechanical Engineering Manager? No January 02, 2025 8:14am Living Will No October 29, 2024 1:46am Do you have a Healthcare Power of Mechanical Engineering Manager? No October 29, 2024 1:46am Living Will Yes November 21, 2024 5:32am Do you have a Healthcare Power of Mechanical Engineering Manager? Yes November 21, 2024 5:32am Name of Medical Power of Mechanical Engineering Manager anne Hernandez November 21, 2024 5:32am Do you have a Healthcare Power of Mechanical Engineering Manager? No November 28, 2024 5:49pm Do you have a Healthcare Power of Mechanical Engineering Manager? No December 26, 2024 10:02am Do you have a Healthcare Power of Mechanical Engineering Manager? No December 30, 2024 1:06am Do you have a Healthcare Power of Mechanical Engineering Manager? No January 09, 2025 3:31pm Advance Directive Response Recorded Date/ Time Do you have a Healthcare Power of Mechanical Engineering Manager? No January 02, 2025 8:14am Do you have a Healthcare Power of Mechanical Engineering Manager? No January 28, 2025 3:02am Living Will No October 29, 2024 1:46am Do you have a Healthcare Power of Mechanical Engineering Manager? No October 29, 2024 1:46am Living Will Yes November 21, 2024 5:32am Do you have a Healthcare Power of Mechanical Engineering Manager? Yes November 21, 2024 5:32am Name of Medical Power of Mechanical Engineering Manager anne Hernandez November 21, 2024 5:32am Do you have a Healthcare Power of Mechanical Engineering Manager? No November 28, 2024 5:49pm Do you have a Healthcare Power of Mechanical Engineering Manager? No December 26, 2024 10:02am Do you have a Healthcare Power of Mechanical Engineering Manager? No December 30, 2024 1:06am Do you have a Healthcare Power of Mechanical Engineering Manager? No January 09, 2025 3:31pm Advance Directive Response Recorded Date/ Time Do you have a Healthcare Power of Mechanical Engineering Manager? No January 02, 2025 8:14am Do you have a Healthcare Power of Mechanical Engineering Manager? No January 28, 2025 3:02am Living Will No October 29, 2024 1:46am Do you have a Healthcare Power of Mechanical Engineering Manager? No October 29, 2024 1:46am Living Will Yes November 21, 2024 5:32am Do you have a Healthcare Power of Mechanical Engineering Manager? Yes November 21, 2024 5:32am Name of Medical Power of Mechanical Engineering Manager anne Hernandez November 21, 2024 5:32am Do you have a Healthcare Power of Mechanical Engineering Manager? No November 28, 2024 5:49pm Do you have a Healthcare Power of Mechanical Engineering Manager? No December 26, 2024 10:02am Do you have a Healthcare Power of Mechanical Engineering Manager? No December 30, 2024 1:06am Do you have a Healthcare Power of Mechanical Engineering Manager? No January 09, 2025 3:31pm Do you have a Healthcare Power of Mechanical Engineering Manager? No February 07, 2025 10:20pm Advance Directive Response Recorded Date/ Time Do you have a Healthcare Power of Mechanical Engineering Manager? No January 02, 2025 8:14am Do you have a Healthcare Power of Mechanical Engineering Manager? No January 28, 2025 3:02am Living Will No October 29, 2024 1:46am Do you have a Healthcare Power of Mechanical Engineering Manager? No October 29, 2024 1:46am Living Will Yes November 21, 2024 5:32am Do you have a Healthcare Power of Mechanical Engineering Manager? Yes November 21, 2024 5:32am Name of Medical Power of Mechanical Engineering Manager anen Hernandez November 21, 2024 5:32am Do you have a Healthcare Power of Mechanical Engineering Manager? No November 28, 2024 5:49pm Do you have a Healthcare Power of Mechanical Engineering Manager? No December 26, 2024 10:02am Do you have a Healthcare Power of Mechanical Engineering Manager? No December 30, 2024 1:06am Do you have a Healthcare Power of Mechanical Engineering Manager? No January 09, 2025 3:31pm Do you have a Healthcare Power of Mechanical Engineering Manager? No February 07, 2025 10:20pm Do you have a Healthcare Power of Mechanical Engineering Manager? No February 13, 2025 4:40pm Advance Directive Response Recorded Date/ Time Do you have a Healthcare Power of Mechanical Engineering Manager? No January 02, 2025 8:14am Do you have a Healthcare Power of Mechanical Engineering Manager? No January 28, 2025 3:02am Living Will No October 29, 2024 1:46am Do you have a Healthcare Power of Mechanical Engineering Manager? No October 29, 2024 1:46am Living Will Yes November 21, 2024 5:32am Do you have a Healthcare Power of Mechanical Engineering Manager? Yes November 21, 2024 5:32am Name of Medical Power of Mechanical Engineering Manager anne Hernandez November 21, 2024 5:32am Do you have a Healthcare Power of Mechanical Engineering Manager? No November 28, 2024 5:49pm Do you have a Healthcare Power of Mechanical Engineering Manager? No December 26, 2024 10:02am Do you have a Healthcare Power of Mechanical Engineering Manager? No December 30, 2024 1:06am Do you have a Healthcare Power of Mechanical Engineering Manager? No January 09, 2025 3:31pm Do you have a Healthcare Power of Mechanical Engineering Manager? No February 07, 2025 10:20pm Do you have a Healthcare Power of Mechanical Engineering Manager? No February 13, 2025 4:40pm Do you have a Healthcare Power of Mechanical Engineering Manager? No February 16, 2025 6:30pm Chief Complaint and Reason for Visit Chief [...] h2024 10:36am SEPSIS WITH STAGHORN CALCULI September 9 h2024 10:39am SEPSIS WITH STAGHORN CALCULI September [...] SEPSIS, UTI, DIARRHEA & ABDOMINAL PAIN [facility] 2024 12:43am Reason for Visit Admit Date [...] 12:43am History of uric acid staghorn calculus arch 2024 12:43am Hyponatremia October 29, 2024 [...] HYPOTENSION August 29, 2024 10:09pm HEPATIC ENCEPHALOPATHY, IASBEL, HYPOTENSION August 30, 2024 7:58am HEPATIC ENCEPHALOPATHY, [...] h2024 10:36am SEPSIS WITH STAGHORN CALCULI September 9 h2024 10:39am SEPSIS WITH STAGHORN CALCULI September 132024 9:27am SEPSIS WITH STAGHORN CALCULI September 142024 9:57am FLUID RETENTION September 29, 2024 9:35am FLUID RETENTION September 29, 2024 10:48am SEPSIS, UTI, DIARRHEA & ABDOMINAL PAIN [facility] 2024 12:43am SEPSIS, UTI, DIARRHEA & ABDOMINAL [...] Admit Date SEPSIS WITH STAGHORN CALCULI September 2n 2024 [...] September 1:46am SEPSIS WITH STAGHORN CALCULI September 4 h2024 9:36am SEPSIS WITH STAGHORN CALCULI September 5:04pm SEPSIS WITH STAGHORN CALCULI September h2024 12:41pm SEPSIS WITH STAGHORN CALCULI September 4:50pm [...] History of uric acid staghorn calculus [facility] 2024 12:43am Hyponatremia October 29, 2024 12: [...] 9:52am SEPSIS, UTI, DIARRHEA & ABDOMINAL PAIN arch 2024 8:36am SEPSIS, UTI, DIARRHEA & [...] Date SEPSIS, UTI, DIARRHEA & ABDOMINAL PAIN arch 2024 12:43am SEPSIS, UTI, DIARRHEA & ABDOMINAL PAIN arch 2024 7:44am SEPSIS, UTI, DIARRHEA & ABDOMINAL PAIN arch 2024 8:20am SEPSIS, UTI, DIARRHEA & ABDOMINAL PAIN arch 2024 8:48pm SEPSIS, UTI, DIARRHEA & ABDOMINAL PAIN arch 2024 9:52am SEPSIS, UTI, DIARRHEA & ABDOMINAL PAIN arch 2024 8:36am SEPSIS, UTI, DIARRHEA & ABDOMINAL PAIN [facility] 2024 11:28am SEPSIS, UTI, DIARRHEA & ABDOMINAL [...] SEPSIS January 16, 2025 12:3 6pm SEPSIS Georgina 16th, 2025 2:20 pm SEPSIS January 18, 2025 [...] abd pain February 07, 2025 7:19p m ASCITES SECONDARY TO CIRRHOSIS February 11:42am abd pain February 13, 2025 4:29 pm Chief Complaint Admit Date SEPSIS, UTI, DIARRHEA [...] abd pain February 07, 2025 7:19p m ASCITES SECONDARY TO CIRRHOSIS February 11:42am ASCITES SECONDARY TO CIRRHOSIS February 12:31pm abd pain February 13, 2025 4:29 pm DECOMPENSATED CIRRHOSIS February 16, 2025 6:26pm Reason for Visit Admit Date Clostridium difficile [...] Umbilical hernia January 28, 2025 7:00 am Cirrhosis of liver with ascites February 6:26pm Elevated liver enzymes February 16, 2025 6 :26pm History of diabetes mellitus February 16, 2025 6:26pm Hyperammonemia February 16, 2025 6:26 pm Chronic anemia February 16, 2025 6:26 pm Additional Source Comments Reason for Visit (unrecogniz ed section and content) Reason Comments Dental Clearance - Transplant Liver Specialty Diagnoses / Procedures Referred By Ginny alex Referred To Contact HOSP INPATIENT Diagnoses 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 1543 (Given - Provid er: Day Jones RN) ondansetron ODT (Zofran-ODT) disintegrating tablet 4 mg (COMPLETED) 4 mg, oral, Once, On Fri10/04/24 at 2115, For 1 dose 2118 (Given - Provid er: Marquita Feliz RN) [...] mg (COMPLETED) 12.5 mg, oral, Once, On 10/04/24 at 1855, For 1 dose 1853 (Given [...] 2024 End: November 11, 2024 Dr. Kathie Powers MD Attending Provider Active Start: October 29, 2024 End: November 11, 2024 Dr. Hill Acuña MD Other Provider Active Star t: October 29, 2024 End: November 11, 2024 Dr. Hill Herrmann MD Other Provider Active Start: October 29, 2024 End: November 11, 2024 Dr. Blari Cage MD Other Provider Active Start : [...] 2024 End: November 11, 2024 Yue Delgadillo MECHANICAL COMMISSIONING ENGINEER, MECHANICAL COMMISSIONING ENGINEER-C Other Provider Active St art: October 29, [...] Active Start: November 08, 2024 Dr. Kathie Powers MD Attending Provider Active Start: November 08, 2024 Dr. Kathie Powers MD Other Provider Active Star t: November [...] Active Start: November 09, 2024 Dr. Kathie Powers MD Attending Provider Active Start: November 09, 2024 Dr. Kathie Powers MD Other Provider Active Star t: November [...] Start: November 10, 2024 Dr. Hill Caro , DO Other Provider Active Start: November 10, 2024 Dr. Foster Rascon MD Other Provider Active Start: November 10, 2024 Dr. Buster Fuchs MD Other Provider Active Start: November 10, 2024 Dr. Kathie Powers MD Attending Provider Active Start: November 10, 2024 Dr. Kathie Powers MD Other Provider Active Star t: November [...] Sta rt: November 10, 2024 Yue Delgadillo MECHANICAL COMMISSIONING ENGINEER, MECHANICAL COMMISSIONING ENGINEER-C Other Provider Active St art: November 10, [...] November 22, 2024 Dr. Jae Ash , Admit Provider Active Start: November 22, 2024 [...] 2024 End: December 02, 2024 Dr. Kathie Powers MD Admit Provider Active Star t: November 28, 2024 End: December 02, 2024 Dr. Kathie Powers MD Other Provider Active Star t: November [...] Active Start: November 29, 2024 Dr. Kathie Powers MD Admit Provider Active Star t: November 29, 2024 Dr. Kathie Powers MD Other Provider Active Star t: November [...] Active Start: November 30, 2024 Dr. Kathie Powers MD Admit Provider Active Star t: November 30, 2024 Dr. Kathie Powers MD Other Provider Active Star t: November [...] Active Start: December 01, 2024 Dr. Kathie Powers MD Admit Provider Active Star t: December 01, 2024 Dr. Kathie Powers MD Other Provider Active Star t: December [...] Start: December 02, 2024 Dr. Rachel Joiner , Emergency Provider Active Start: December 02, 2024 Dr. Kathie Powers MD Admit Provider Active Star t: December 02, 2024 Dr. Kathie Powers MD Other Provider Active Star t: December 02, 2024 Dr. Hill Acuña MD Attending Provider Active Start: December 02, 2024 Dr. Hill Acuña MD Other Provider Active Star t: December 02, 2024 Dr. Thai Thurston MD Other Provider Active Start: December 02, 2024 Team Status: Inactive Member Role Status Dates Josy Elias MECHANICAL COMMISSIONING ENGINEER-C Primary Care Provider Active Start: December 07, 2024 End: December 07, 2024 Josy Elias NP-C Attending Provider Active Start: December 07, 2024 End: December 07, 2024 Team Status: Inactive Member Role Status Dates Josy Elias MECHANICAL COMMISSIONING ENGINEER-C Primary Care Provider Active Start: December 15, 2024 End: December 15, 2024 Josy Elias MECHANICAL COMMISSIONING ENGINEER-C Attending Provider Active Start: December 15, 2024 End: December 15, 2024 Josy Elias MECHANICAL COMMISSIONING ENGINEER-C Referring Provider Active Start: December 15, 2024 End: December 15, 2024 Team Status: Inactive Member Role Status Dates Josy Elias MECHANICAL COMMISSIONING ENGINEER-C Primary Care Provider Active Start: December 26, 2024 End: December 26, 2024 Dr. Boone Carvajal DO Attending Provider Active Start: December 26, 2024 End: December 26, 2024 Dr. Boone Carvajal DO Emergency Provider Active Start: December 26, 2024 End: December 26, 2024 Team Status: Inactive Member Role Status Dates Josy Elias MECHANICAL COMMISSIONING ENGINEER-C Primary Care Provider Active Start: December 30, 2024 End: December 30, 2024 Dr. Mina Blood DO Attending Provider Active Start: December 30, 2024 End: December 30, 2024 Dr. Mina Blood DO Emergency Provider Active Start: December 30, 2024 End: December 30, 2024 Team Status: Inactive Member Role Status Dates Josy Elias MECHANICAL COMMISSIONING ENGINEER-C Primary Care Provider Active Start: January 02, [...] Active Member Role Status Dates Josy Elias MECHANICAL COMMISSIONING ENGINEER-C Primary Care Provider Active Start: January 03, [...] Active Member Role Status Dates Josy Elias MECHANICAL COMMISSIONING ENGINEER-C Primary Care Provider Active Start: January 04, [...] Active Member Role Status Dates Josy Elias MECHANICAL COMMISSIONING ENGINEER-C Primary Care Provider Active Start: January 05, [...] Inactive Member Role Status Dates Josy Elias MECHANICAL COMMISSIONING ENGINEER-C Primary Care Provider Active Start: January 09, [...] Active Member Role Status Dates Josy Elias MECHANICAL COMMISSIONING ENGINEER-C Primary Care Provider Active Start: January 10, [...] tart: January 10, 2025 Dr. Bola Meraz , Other Provider Active Start : January 10, [...] : January 10, 2025 Dr. Yaritza Leo , Other Provider Active Start : January 10, 2025 Dr. John Paul Masterson MD Other Provider Active Start: January 10, 2025 Dr. Christian Abdi MD Other Provider Active Start: January 10, 2025 Dr. Juarez Baird MD Other Provider Active Star t: January 10, 2025 Dr. Bola Meraz , Other Provider Active Start : January 10, [...] art: January 10, 2025 Dr. Kenneth Noland , Other Provider Active Start: January 10, 2025 Dr. Lupillo Robbins MD Other Provider Active Star t: January 10, 2025 Dr. Young Richardson MD Other Provider Active Sta rt: January 10, 2025 Dr. Cielo Tovar MD Attending Provider Active Start: January 10, 2025 Dr. Cielo Tovar MD Other Provider Active St art: January 10, 2025 Team Status: Active Member Role Status Dates Josy Elias MECHANICAL COMMISSIONING ENGINEER-C Primary Care Provider Active Start: January 11, [...] Active Member Role Status Dates Josy Elias MECHANICAL COMMISSIONING ENGINEER-C Primary Care Provider Active Start: January 11, [...] Active Member Role Status Dates Josy Elias MECHANICAL COMMISSIONING ENGINEER-C Primary Care Provider Active Start: January 12, 2025 Dr. Breann Mendez DO Emergency Provider Active S tart: January 12, 2025 Dr. Yaritza Leo , Admit Provider Active Start : January 12, [...] Active Member Role Status Dates Josy Elias MECHANICAL COMMISSIONING ENGINEER-C Primary Care Provider Active Start: January 13, [...] Active Member Role Status Dates Josy Elias MECHANICAL COMMISSIONING ENGINEER-C Primary Care Provider Active Start: January 15, [...] Pena Primary Care Provider Active Start: January 16, [...] Pena Primary Care Provider Active Start: January 17, 2025 Dr. Breann Mendez DO Emergency Provider Active S tart: January 17, 2025 Dr. Yaritza Leo DO Admit Provider Active Start : January 17, 2025 Dr. Yaritza eLo DO Other Provider Active Start : January [...] Member Role Status Dates Josy Tannhof , MECHANICAL COMMISSIONING ENGINEER-C Primary Care Provider Active Start: January 18, [...] Active Member Role Status Dates Josy Elias MECHANICAL COMMISSIONING ENGINEER-C Primary Care Provider Active Start: January 19, [...] Start: January 21, 2025 Dr. Breann Mendez , Emergency Provider Active S tart: January 21, [...] Active Start: January 21, 2025 Dr. Anurag Ireen MD Other Provider Active Sta rt: January [...] Team Status: Active Member Role Status Dates BRITTANY PenaC Primary Care Provider Active Team Status: Inactive [...] St art: August 30, 2024 Dr. Kenneth Noalnd DO Other Provider Active Start: August 30, [...] art: August 31, 2024 Dr. Kenneth Noland , Other Provider Active Start: August 31, 2024 [...] Start: September 01, 2024 Dr. Rick Carlin , DO Other Provider Active S tart: September 01, 2024 Dr. Josefina Khan MD Other Provider Active Start: September 01, 2024 Team Status: Active Member Role Status Dates No Primary Care Physician Primary Care Provider Active Start: September 01, 2024 Dr. Luis Carlos Anderson DO Emergency Provider Active Start: September 01, 2024 Dr. Maria Guadalupe Shroe MD Admit Provider Active St art: September 01, 2024 Dr. Maria Guadalupe Shore MD Referring Provider Active Start: September 01, 2024 Dr. Maria Guadalupe Shore MD Other Provider Active St art: September 01, 2024 Dr. iRck Carlin DO Other Provider Active S tart: [...] End: September 15, 2024 Dr. Hill Caro , Admit Provider Active Start: September 05, 2024 End: September 15, 2024 Dr. Hill Caro DO Other Provider Active Start: September 05, 2024 End: September 15, 2024 Dr. Anurag Irene MD Other Provider Active Sta rt: September 05, 2024 End: September 15, 2024 Dr. Boone Izquierdo , DO Attending Provider Active Start: September 05, [...] September 06, 2024 Dr. Rachel Joiner , DO Emergency Provider Active Start: September 06, [...] Start: September 11, 2024 Dr. Rachel Joiner , DO Emergency Provider Active Start: September 11, [...] Start: September 12, 2024 Dr. Hill Caro , DO Admit Provider Active Start: September 12, [...] September 13, 2024 Dr. Jae Ash , Other Provider Active Start: September 13, 2024 [...] 2024 MINDY CONTRERAS Attending Provider Active Start: [facility]2024 End: September 29, 2024 MINDY CONTRERAS Referring Provider Active Start: 2024 End: September 29, 2024 Team Status: Active Member Role Status Dates No Primary Care Physician Primary Care Provider Active Start: September 29, 2024 DIANE, BILLKarma Referring Provider Active Start: 2024 DIANE BILLKarma Other Provider Active Start: 2024 Jasmine Morocho MECHANICAL COMMISSIONING ENGINEER, MECHANICAL COMMISSIONING ENGINEER-C Attending Provider Active Start: September 29, 2024 Crimp Setter Relationship Specialty Start Date End Date Maurice Rincon MD [address] [place] [address] PCP - General Internal Medicine 09/21/24 Team [...] 21, 2024 Dr. Jae Ash , DO Attending Provider Active Start: November 21, 2024 Team Status: Inactive Member Role Status Dates Josy Elias MECHANICAL COMMISSIONING ENGINEER-C Primary Care Provider Active Start: December 26, 2024 End: December 26, 2024 Dr. Boone Carvajal , DO Emergency Provider Active Start: December 26, 2024 End: December 26, 2024 Team Status: Inactive Member Role Status Dates Josy Elias MECHANICAL COMMISSIONING ENGINEER-C Primary Care Provider Active Start: December 30, 2024 End: December 30, 2024 Dr. Mina Blood , DO Emergency Provider Active Start: December 30, 2024 End: December 30, 2024 Team Status: Active Member Role Status Dates Josy Elias MECHANICAL COMMISSIONING ENGINEER-C Primary Care Provider Active Start: January 02, 2025 Dr. Roddy Reeves DO Emergency Provider Active Start: January 02, 2025 Dr. Buster Fuchs MD Admit Provider Active Start: January 02, 2025 Dr. Buster Fuchs MD Attending Provider Active Start: January 02, 2025 Dr. Buster Fuchs MD Other Provider Active Start: January 02, 2025 Team Status: Active Member Role Status Dates Josy Elias MECHANICAL COMMISSIONING ENGINEER-C Primary Care Provider Active Start: January 09, 2025 Dr. Breann Mendez DO Emergency Provider Active S tart: January 09, 2025 Dr. Yaritza Leo DO Admit Provider Active Start : January 09, 2025 Dr. Yaritza Leo , Attending Provider Active S tart: January 09, 2025 Team Status: Active Member Role Status Dates Josy Elias MECHANICAL COMMISSIONING ENGINEER-C Primary Care Provider Active Start: January 11, [...] 2024 End: November 11, 2024 Dr. Kathie Powers MD Attending Provider Active Start: October 29, [...] 2024 End: November 11, 2024 Yue Delgadillo MECHANICAL COMMISSIONING ENGINEER, MECHANICAL COMMISSIONING ENGINEER-C Other Provider Active St art: October 29, [...] Active Star t: October 30, 2024 Dr. lEver Mancilla MD Other Provider Active St art: [...] Active Start: November 08, 2024 Dr. Kathie Powers MD Attending Provider Active Start: November 08, 2024 Dr. Kathie Powers MD Other Provider Active Star t: November [...] Active Start: November 09, 2024 Dr. Kathie Powers MD Attending Provider Active Start: November 09, 2024 Dr. Kathie Powers MD Other Provider Active Star t: November [...] Active Start: November 10, 2024 Dr. Kathie Powers MD Attending Provider Active Start: November 10, 2024 Dr. Kathie Powers MD Other Provider Active Star t: November [...] Sta rt: November 10, 2024 Yue Delgadillo MECHANICAL COMMISSIONING ENGINEER, MECHANICAL COMMISSIONING ENGINEER-C Other Provider Active St art: November 10, [...] November 23, 2024 Dr. Jae Ash , DO Admit Provider Active Start: November 23, 2024 Dr. Jae Ash , DO Other [...] 2024 End: December 02, 2024 Dr. Kathie Powers MD Admit Provider Active Star t: November 28, 2024 End: December 02, 2024 Dr. Kathie Powers MD Other Provider Active Star t: November [...] Active Start: November 29, 2024 Dr. Kathie Powers MD Admit Provider Active Star t: November 29, 2024 Dr. Kathie Powers MD Other Provider Active Star t: November [...] Active Start: November 30, 2024 Dr. Kathie Powers MD Admit Provider Active Star t: November 30, 2024 Dr. Kathie Powers MD Other Provider Active Star t: November [...] Active Start: December 01, 2024 Dr. Kathie Powers MD Admit Provider Active Star t: December 01, 2024 Dr. Kathie Powers MD Other Provider Active Star t: December [...] Start: December 02, 2024 Dr. Rachel Joiner , DO Emergency Provider Active Start: December 02, 2024 Dr. Kathie Powers MD Admit Provider Active Star t: December 02, 2024 Dr. Kathie Powers MD Other Provider Active Star t: December 02, 2024 Dr. Hill Acuña MD Attending Provider Active Start: December 02, 2024 Dr. Hill Acuña MD Other Provider Active Star t: December 02, 2024 Dr. Thai Thurston MD Other Provider Active Start: December 02, 2024 Team Status: Inactive Member Role/Relationship Status Dates Josydominique Elias , MECHANICAL COMMISSIONING ENGINEER-C Primary Care Provider Active Start: December 07, 2024 End: December 07, 2024 Josydominique Elias , MECHANICAL COMMISSIONING ENGINEER-C Attending Provider Active Start: December 07, 2024 End: December 07, 2024 Team Status: Inactive Member Role/Relationship Status Dates Josydominique Baumannhof , MECHANICAL COMMISSIONING ENGINEER-C Primary Care Provider Active Start: December 15, 2024 End: December 15, 2024 Josydominique Elias , MECHANICAL COMMISSIONING ENGINEER-C Attending Provider Active Start: December 15, 2024 End: December 15, 2024 Josydominique Baumannhoantoinette , MECHANICAL COMMISSIONING ENGINEER-C Referring Provider Active Start: December 15, 2024 End: December 15, 2024 Team Status: Inactive Member Role/Relationship Status Dates Josydominique Elias , MECHANICAL COMMISSIONING ENGINEER-C Primary Care Provider Active Start: December 26, 2024 End: December 26, 2024 Dr. Boone Carvajal , Attending Provider Active Start: December 26, 2024 End: December 26, 2024 Dr. Boone Carvajal , Emergency Provider Active Start: December 26, 2024 End: December 26, 2024 Team Status: Inactive Member Role/Relationship Status Dates Josydominique Baumannhoantoinette , MECHANICAL COMMISSIONING ENGINEER-C Primary Care Provider Active Start: December 30, 2024 End: December 30, 2024 Dr. Mina Blood DO Attending Provider Active Start: December 30, 2024 End: December 30, 2024 Dr. Mina Blood , Emergency Provider Active Start: December 30, 2024 End: December 30, 2024 Team Status: Inactive Member Role/Relationship Status Dates Josy Elias MECHANICAL COMMISSIONING ENGINEER-C Primary Care Provider Active Start: January 02, [...] Active Member Role/Relationship Status Dates Josy Elias MECHANICAL COMMISSIONING ENGINEER-C Primary Care Provider Active Start: January 03, [...] Active Member Role/Relationship Status Dates Josy Elias MECHANICAL COMMISSIONING ENGINEER-C Primary Care Provider Active Start: January 04, [...] Active Member Role/Relationship Status Dates Josy Elias MECHANICAL COMMISSIONING ENGINEER-C Primary Care Provider Active Start: January 05, [...] Team Status: Active Member Role/Relationship Status Dates YG Pena Primary Care Provider [...] Status: Active Member Role/Relationship Status Dates Josy Tannhof , MECHANICAL COMMISSIONING ENGINEER-C Primary Care Provider Active Start: January 11, [...] Active Member Role/Relationship Status Dates Josy Elias MECHANICAL COMMISSIONING ENGINEER-C Primary Care Provider Active Start: January 11, [...] Active Member Role/Relationship Status Dates Josy Elias MECHANICAL COMMISSIONING ENGINEER-C Primary Care Provider Active Start: January 11, [...] Active Member Role/Relationship Status Dates Josy Elias MECHANICAL COMMISSIONING ENGINEER-C Primary Care Provider Active Start: January 12, [...] Active Member Role/Relationship Status Dates Josy Elias MECHANICAL COMMISSIONING ENGINEER-C Primary Care Provider Active Start: January 13, [...] Active Member Role/Relationship Status Dates Josy Elias MECHANICAL COMMISSIONING ENGINEER-C Primary Care Provider Active Start: January 15, [...] St art: January 17, 2025 Dr. Aleyda Bautitsa MD Other Provider Active Star t: January [...] PenaC Primary Care Provider Active Start: January 20, [...] Team Status: Active Member Role/Relationship Status Dates YG Pena Primary Care Provider Active Start: January 21, 2025 Dr. Breann Mendez , DO Emergency Provider Active S tart: January 21, 2025 Dr. Yaritza Leo , Admit Provider Active Start : January 21, [...] End: January 31, 2025 Dr. Yaritza Leo DO Attending Provider Active S tart: January 28, [...] Active Start: January 29, 2025 Dr. Boone Izquierdo , DO Admit Provider Active Star t: January 29, 2025 Dr. Boone Izquierdo , DO Other Provider Active Star t: January 29, 2025 Dr. Yaritza Leo , DO Attending Provider Active S tart: January 29, 2025 Dr. Yaritza Leo , DO Other Provider Active Start : January 29, 2025 Team Status: Active Member Role/Relationship Status Dates Dr. Danny Hutton , DO Emergency Provider Activ e Start: January 30, 2025 Dr. Jerald Sherwood MD Primary Care Provider Active Start: January 30, 2025 Dr. Boone Izquierdo , DO Admit Provider Active Star t: January 30, 2025 Dr. Boone Izquierdo , Other Provider Active Star t: January 30, 2025 Dr. Yaritza Leo , DO Attending Provider Active S tart: January 30, 2025 Dr. Yaritza Leo , DO Other Provider Active Start : January [...] t: January 31, 2025 Dr. Yaritza Leo , DO Attending Provider Active S tart: January 31, 2025 Dr. Yaritza Leo , DO Other Provider Active Start : January 31, 2025 Team Status: Inactive Member Role/Relationship Status Dates Dr. Jerald Sherwood MD Primary Care Provider Active Start: February 07, 2025 End: February 08, 2025 Dr. Mina Blood , DO Emergency Provider Active Start: February 07, 2025 End: February 08, 2025 Team Status: Active Member Role/Relationship Status Dates Dr. Jerald Sherwood MD Primary Care Provider Active Start: February 11, 2025 Dr. Mina Blood , DO Attending Provider Active Start: February 11, 2025 Dr. Mina Blood , DO Referring Provider Active Start: February 11, 2025 Team Status: Inactive Member Role/Relationship Status Dates Dr. Jerald Sherwood MD Primary Care Provider Active Start: February 13, 2025 End: February 13, 2025 Dr. Luis Carlos Anderson DO Emergency Provider Active Start: February 13, 2025 End: February 13, 2025 Team Status: Inactive Member Role/Relationship Status Dates Dr. Jerald Sherwood MD Primary Care Provider Active Start: February 07, 2025 End: February 08, 2025 Dr. Mina Blood DO Attending Provider Active Start: February 07, 2025 End: February 08, 2025 Dr. Mina Blood DO Emergency Provider Active Start: February 07, 2025 End: February 08, 2025 Team Status: Active Member Role/Relationship Status Dates Dr. Jerald Sherwood MD Primary Care Provider Active Start: February 11, 2025 Dr. Mina Blood DO Referring Provider Active Start: February 11, 2025 Dr. Mina Blood DO Other Provider Active Star t: February 11, 2025 YG Olson Attending Provider Active S tart: February 11, 2025 Team Status: Inactive Member Role/Relationship Status Dates Dr. Jerald Sherwood MD Primary Care Provider Active Start: February 13, 2025 End: February 13, 2025 Dr. Luis Carlos Anderson DO Emergency Provider Active Start: February 13, 2025 End: February 13, 2025 Team Status: Active Member Role/Relationship Status Dates Dr. Jerald Sherwood MD Primary Care Provider Active Start: February 16, 2025 Dr. Jerald Sherwood MD Attending Provider Active Start: February 16, 2025 Dr. Jerald Sherwood MD Referring Provider Active Start: February 16, 2025 Team Status: Active Member Role/Relationship Status Dates Dr. Jerald Sherwood MD Primary Care Provider Active Start: February 16, 2025 Dr. Alber Dunn MD Emergency Provider Active S tart: February 16, 2025 Dr. Jae Ash DO Admit Provider Active Start: February 16, 2025 Dr. Jae Ash DO Attending Provider Active Start: February 16, 2025 (unrecognized sect ion and content) No Status Records FoundNo Status Records FoundNo Status Records Found INFORMATION SOURCE (unrecogn ized section and content) DATE CREATED AUTHOR 10/10/2024 [facility] DATE CREATED AUTHOR AUTHOR'S ORGANIZ ATION 12/13/2024 [facility] DATE CREATED AUTHOR AUTHOR'S ORGANIZ ATION 02/16/2025 [facility] Source Comments (unrecognize d section and content) In the event this informatio n is protected by the Federal Confidentiality of Alcohol and Drug Abuse Patient Records regulations: The Federal rules restrict any use of the information to criminally investigate or prosecute any alcohol or drug abuse patient.[facility] the event this information is protected by the Federal Confidentiality of Alcohol and Drug Abuse Patient Records regulations: The Federal rules restrict any use of the information to criminally investigate or prosecute any alcohol or drug abuse patient.[facility] the event this information is protected by the Federal Confidentiality of Alcohol and Drug Abuse Patient Records regulations: The Federal rules restrict any use of the information to criminally investigate or prosecute any alcohol or drug abuse patient.[facility] the event this information is protected by the Federal Confidentiality of Alcohol and Drug Abuse Patient Records regulations: The Federal rules restrict any use of the information to criminally investigate or prosecute any alcohol or drug abuse patient.[facility] the event this information is protected by the Federal Confidentiality of Alcohol and Drug Abuse Patient Records regulations: The Federal rules restrict any use of the information to criminally investigate or prosecute any alcohol or drug abuse patient.[facility] the event this information is protected by the Federal Confidentiality of Alcohol and Drug Abuse Patient Records regulations: The Federal rules restrict any use of the information to criminally investigate or prosecute any alcohol or drug abuse patient.[facility] the event this information is protected by the Federal Confidentiality of Alcohol and Drug Abuse Patient Records regulations: The Federal rules restrict any use of the information to criminally investigate or prosecute any alcohol or drug abuse patient.[facility] the event this information is protected by the Federal Confidentiality of Alcohol and Drug Abuse Patient Records regulations: The Federal rules restrict any use of the information to criminally investigate or prosecute any alcohol or drug abuse patient.[facility] the event this information is protected by the Federal Confidentiality of Alcohol and Drug Abuse Patient Records regulations: The Federal rules restrict any use of the information to criminally investigate or prosecute any alcohol or drug abuse patient.[facility] the event this information is protected by the Federal Confidentiality of Alcohol and Drug Abuse Patient Records regulations: The Federal rules restrict any use of the information to criminally investigate or prosecute any alcohol or drug abuse patient.[facility] the event this information is protected by the Federal Confidentiality of Alcohol and Drug Abuse Patient Records regulations: The Federal rules restrict any use of the information to criminally investigate or prosecute any alcohol or drug abuse patient.[facility] FOR RECORDS PERTAINING TO PATIENTS WHO ARE [...] PRIMARY CLINICAL RECORDS. [facility] [employer] [facility]. provides no warranty or guarantee of the accuracy or completeness of information in this document.
--- OUTSIDE RECORDS SUMMARY | 2025-02-16 23:21 | XMS RPT_ITS | CCD ---
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 Delgado Attending Provider Dr. Danny Hutton DO Emergency Provider Dr. Luis Carlos Anderson DO Emergency Provider Mone HERNANDEZ, Dr. Maria Guadalupe Carlson Admit Provider Mone HERNANDEZ, Dr. Maria Guadalupe Carlson Referring Provider Mone HERNANDEZ, Dr. Maria Guadalupe Carlson Other Provider [phone] Rick Carlin DO Attending Provider Erin [...] Provider Carmela HERNANDEZ, Dr. Tam Other Provider Mallorei HERNANDEZ, Dr. Kelly Other Provider Nuzhat NOYOLA, [...] Ash DO Other Provider Karena HERNANDEZ, Dr. Adnre Other Provider Abiodun HERNANDEZ, Dr. Foster Rivas Other Provider Teto HERNANDEZ, Dr. Osborn Referring Provider Nomi HERNANDEZ, Dr. Douglas Other Provider Dr. Anurag Irene MD Attending Provider Dr. Jae Ash DO Attending Provider Timbo NOYOLA Dr. Boone Other Provider FRANCESCOKarma DIANE Attending Provider FRANCESCOKarmaDIANE Referring Provider BILLKarmaDIANE Other Provider Bailee CHORE TENDER-C, Jasmine Attending Provider Shaun HERNANDEZ, Dr. Campo Emergency Provider Caro DO, Dr. Alejandre Attending Provider Unav ailable Care Physician, No Primary Primary Care Provider Unavailable [facility], Dr. Delgado Attending Provider GeorgiLucero [...] HERNANDEZ, Dr. Pizarro Other Provider [phone] Bola Meraz DO Attending Provider Dr. Bola Meraz DO Other Provider Víctor HERNANDEZ, Dr. Hill Alcaraz Other Provider Ashli HERNANDEZ, Dr. Aguilar Other Provider Missael HERNANDEZ, Dr. Cotton Other Provider Ashely HERNANDEZ, Dr. Foote Other Provider [phone] Cassandra HERNANDEZ, Dr. Garvin Other Provider Yamil HERNANDEZ, Dr. Solis Other Provider Rojas HERNANDEZ, Dr. Enriquez Other Provider Seble HERNANDEZ, Dr. Hernández Other Provider [phone] Desmond HERNANDEZ, Dr. Snow Other Provider Unavailabl karma Venegas MD, Dr. Whyte Other Provider Laurent HERNANDEZ, Dr. Raya Other Provider Angely HERNANDEZ, Dr. Silver Other Provider Jazmyne NOYOLA, Dr. Cuevas Other Provider Carmela HERNANDEZ, Dr. Tam Other Provider Mallorei HERNANDEZ, Dr. Kelly Other Provider Nuzhat NOYOLA, Dr. Cooper Other Provider Rosendo HERNANDEZ, Dr. Wesley Other Provider [phone] Dylan HERNANDEZ, Dr. Colon Other Provider [phone] Dr. Rick Carlin DO Other Provider Dr. Niranjan Li DO Attending Provider Dr. Rachel Joiner DO Emergency Provider Caro DO, Dr. Alejandre Admit Provider Unavail able Dr. Hill Caro DO Other Provider Unavail able Teto HERNANDEZ, Dr. Osborn Other Provider Dr. Boone Izquierdo DO Attending Provider Dr. Jae Ash DO Other Provider [phone] Karena HERNANDEZ, Dr. Andre Other Provider Abiodun HERNANDEZ, Dr. Foster Rivas Other Provider Dr. Anurag Irene MD Referring Provider Nomi HERNANDEZ, Dr. Douglas Other Provider [phone] Dr. Anurag Irene MD Attending Provider Dr. Jae Ash DO Attending Provider Dr. Boone Izquierdo DO Other Provider DIANE CALLAHAN Attending Provider TREY CALLAHANA Referring Provider DIANE CALLAHAN Other Provider Bailee CHORE TENDER-C, Jasmine Attending Provider Shaun HERNANDZE, Dr. Campo Emergency Provider Shila HERNANDEZ, Dr. [...] Dr. Scott Weston DO Other Provider Elie CHORE TENDER-C, Yue Other Provider Dr. Hill Caro DO Referring Provider Unav ailable Shila HERNANDEZ, Dr. Buster Barr Attending Provider Dr. Buster Fuchs MD Referring Provider Dr. Hill Acuña MD Attending Provider Unavaila Dr. Kathie Martinez MD Other Provider Unavailable Primary Care Provider Unavailyanick Carlson MD, Dr. Kevin Emergency Provider Nilsa NOYOLA, Dr. Rowe Admit Provider Dr. Kathie Powers MD Admit Provider Tannhof CHORE TENDER-C, Josy Primary Care Provider Tannhof CHORE TENDER-C, Josy Attending Provider KATHIE POWERS Referring Unavailable [...] Provider Kt NOYOLA, Dr. Plaza Attending Provider Kt NOYOLA, Dr. Plaza Other Provider Víctor HERNANDEZ, Dr. Hill Alcaraz Other Provider Ashli HERNANDEZ, Dr. Aguilar Other Provider Missael HERNANDEZ, Dr. Cotton Other Provider Ashely HERNANDEZ, Dr. Foote Other Provider Cassandra HERNANDEZ, Dr. Garvin Other Provider [phone] Dr. Will Lobo MD Other Provider [phone] Dr. Mina Xie MD Other Provider [phone] Seble HERNANDEZ, Dr. Hernández Other Provider Dr. Gwendolyn Logan MD Other Provider [facility] karma Venegas MD, Dr. Whyte Other Provider Dr. Elver Mancilla MD Other Provider Angely HERNANDEZ, Dr. Silver Other Provider Dr. Mason Samano DO Other Provider Dr. Anel Casey MD Other Provider Dr. Robin Nobles MD Other Provider Dr. Kenneth Noland DO Other Provider Rosendo HERNANDEZ, Dr. Wesley Other Provider Dylan HERNANDEZ, Dr. Colon Other Provider [phone] Jeremi NOYOLA, Dr. Enriquez Emergency Provider Care [...] Provider Desmond HERNANDEZ, Dr. Snow Other Provider [facility] karma Mosher MD, Dr. Douglas Other Provider Theo HERNANDEZ, Dr. Whyte Other Provider Dr. Elver Mancilla MD Other Provider Angely HERNANDEZ, Dr. Silver Other Provider Jazmyne DO, Dr. Cuevas Other Provider Carmela HERNANDEZ, Dr. Tam Other Provider Mallorie HERNANDEZ, Dr. Kelly Other Provider Nuzhat NOYOLA, Dr. Cooper Other Provider Rosendo HERNANDEZ, Dr. Wesley Other Provider [phone] Dylan HERNANDEZ, Dr. Colon Other Provider Dr. [...] Abiodun HERNANDEZ, Dr. Foster Rivas Other Provider [phone] Dr. Jae Ash DO Attending Provider Dr. [...] Lan Attending Provider Frieda HERNANDEZ, Dr. Jefferson aMrte Attending Provider Care Physician, No Primary Primary Care Provider Unavailable Teto HERNANDEZ, Dr. Osborn Referring Provider GeorgiLucero NOYOLA, Dr. Delgado Emergency Provider Presley HERNANDEZ, Dr. Marques Primary Care Provider Timbo NOYOLA, Dr. Shook Admit Provider Timbo DO, Dr. Shook Attending Provider Timbo NOYOLA, Dr. Shook Other Provider Ahmet DO, Dr. Vigil Attending Provider Timbo DO, Dr. Shook Attending Provider Jeremi DO, Dr. Enriquez Referring Provider Justin DO, Dr. Aldridge [facility] , Dr. Enriquez Other Provider John ROSA-CMar Attending Provider Presley HERNANDEZ, Dr. Marques Attending Provider Dr. Jerald Sherwood MD Referring Provider [phone] Niranjan Li Attending Unavailable Buster Fuchs Referring [...] Consulting Unavailable Scott Weston Consulting Unavailable Elie CHORE TENDER, Yue Consulting Unavailable Yaritza Leo Attending Unavailable Boone Izquierdo Consulting Unavailable Boone Izquierdo Admitting Unavailable Jerald Sherwood Primary Care Unavailable Care Physician, No Primary Primary Care Unava ilable PESEK, TOD1 Attending Unavailable PESEK, TOD1 Referring Unavailable Care Physician, No Primary Primary Care Unava ilable PESEK, TOD1 Consulting Unavailable PESEK, TOD1 Referring Unavailable Bailee CHORE TENDER, Jasmine Attending Unavailable Kathie Powers Attending Unavailable [...] Care Unavailable Maria Guadalupe Shore Attending Unavailable Hill Herrmann Consulting Unavailable Blair Cage Consulting Unavailable Thiago Wray Consulting Unavailable Gabbi Hughes Consulting Unavailable Thai Godfrey Consulting Unavailable Juan Daniel Garza Consulting Unavailable Zachariah Glover Consulting Unavailable Scott Weston Consulting Unavailable Elie CHORE TENDER, Yue Consulting Unavailable Tannho, Josy Primary Care Unavailable Josy Elias Attending Unavailable Buster Fuchs Consulting Unavailable Beau Fuchsolas F Admitting Unavailable Tannhof, Josy Primary Care Unavailable Hill Acuña Attending Unavailable [facility], Josy Primary Care Unavailable Tannhof Josy Attending Unavailable Tannhof, Josy Referring Unavailable AndMina coronado Consulting Unavailable Sherwood, Jerald Primary Care Unavailable AndMagen coronadoin Referring Unavailable Mar Lopez Attending Unavailable [facility], Josy Primary Care Unavailable Yaritza Leo [...] Meraz Consulting Unavailable Hill Renee Consulting Unavailable Jfef Cornelius Consulting Unavailable Missael, Yury Consulting Unavailable Habtegebriel, Dary Consulting Unavailab le Dand, Bharathi Consulting Unavailable Lobo, Will Consulting Unavailable Xie, Mina Consulting Unavailable Seble, Betty Consulting Unavailable Aljundi, Lamia Consulting Unavailable Mosher, Stella Consulting Unavailable Theo, Pato Consulting Unavailable Irukulla, Elver Consulting Unavailable Angely, Nadeem Consulting Unavailable Dhesi, Mason Consulting Unavailable Casey, Sujoy Consulting Unavailable Houston, Soleyah Consulting Unavailable Fernstrom, Kenneth Consulting Unavailable [...] Mason Consulting Unavailable Casey, Sujoy Consulting Unavailable [place], Soleyah Consulting Unavailable Mosestrfrancisca, Kenneth Consulting Unavailable Rosendo, Lupillo Consulting Unavailable Young Richardson Consulting Unavailable Jefferson Malave Attending Unavailable Teto, Anurag Referring Unavailable Jae [...] 10/04/2024 11/03/2024 Active take 2 tablets by [facility] once daily furosemide (LASIX) 20 mg tablet [...] 10-28-2024 take 1 tablet by [facility] three times daily midodrine (Proamatine) 5 mg [...] patient preference? Yes take 1 capsule by [facility] every six hours as needed oxyCODONE (Oxy-IR) [...] 11-18-2024 take 1 capsule by mo [facility] once daily zinc sulfate 220 mg (50 [...] Auto (Unsp spec) [#/Vol] 1.28 10*3/uL 0.83-4.51 [facility] Anion gap in Serum or Plasma Ordered By: Jerald Sherwood on 02-16-2025 Anion gap [Moles/Vol] 12 mmol/L 5-15 [facility] Automated lymphocyte count a s percentage of total leukocytesOrdered By: Jerald Sherwood on 02-16-2025 Lymphocytes/100 WBC Auto (Unsp spec) 15.1 % Low 19-41 [facility] BUN/creatinine ratioOrdered By: Jerald Sherwood on 02-16-2025 Urea nitrogen/Creatinine [Mass ratio] 9.4 mg/mg Low 10-20 [facility] Basophil percentageOrdered B y: Jerald Sherwood on 02-16-2025 Basophils/100 WBC (Bld) 0.5 % 0-1 [facility] Bilirubin directOrdered By: Jae Ash on 02-16-2025 Bilirubin.direct [Mass/Vol] 5.10 mg/dL High 0.00-0.30 [facility] Bilirubin, Directon 02-17-20 25 Bilirubin.direct [Mass/Vol] 5.10 mg/dL High 0.00-0.30 [facility] Comment on above: Performed By: #### L 504.2610, L501.4700 ####[facility] [address] [place], [place], [id number] Bilirubin, totalOrdered By: Jerald Sherwood on 02-16-2025 Bilirubin [Mass/Vol] 7.29 mg/dL High 0.00-1.30 [facility] CBC W/Diff, Automatedon 02-01 Absolute Lymph 1.28 X10 3/uL Normal 0.83-4.51 [facility] Comment on above: Performed By: #### L 100.0100, L500.4050, L503.5510 ####[facility] [address] [place], [address] Absolute Neut 5.7 X10 3/uL Normal 2.0-7.7 [facility] Comment on above: Performed By: #### L 100.0100, L500.4050, L503.5510 ####[facility] [address] [place], [address] Basophils/100 WBC (Bld) 0.5 % Normal 0-1 [facility] Comment on above: Performed By: #### L 100.0100, L500.4050, L503.5510 ####[facility] [address] [place], [address] Eosinophils/100 WBC (Bld) 5.4 % High 0-5 [facility] Comment on above: Performed By: #### L 100.0100, L500.4050, L503.5510 ####[facility] [address] [place], [address] Erythrocyte distribution width (RBC) [Ratio] 18.7 % High 11.6-14.6 [facility] Comment on above: Performed By: #### L 100.0100, L500.4050, L503.5510 ####[facility] [address] [place], [address] Hematocrit (Bld) [Volume fraction] 24.8 % Low 40-54 [facility] Comment on above: Performed By: #### L 100.0100, L500.4050, L503.5510 ####[facility] [address] [place], [address] Hemoglobin (Bld) [Mass/Vol] 8.2 g/dL Low 13.0-16.5 [facility] Comment on above: Performed By: #### L 100.0100, L500.4050, L503.5510 ####[facility] [address] [place], [address] IG% 0.200 Normal 0.0-0.9 [facility] Comment on above: Result Comment: IG% - Immature Granulocytes (promyelocytes, myelocytes andmetamyelocytes) > 1% indicates that a LEFT SHIFT is Present. Performed By: #### L 100.0100, L500.4050, L503.5510 ####[facility] [address] [place], [address] Lymphocytes/100 WBC (Bld) 15.1 % Low 19-41 [facility] Comment on above: Performed By: #### L 100.0100, L500.4050, L503.5510 ####[facility] [address] [place], [address] MCH (RBC) [Entitic mass] 28.9 pg Normal 27.0-32.0 [facility] Comment on above: Performed By: #### L 100.0100, L500.4050, L503.5510 ####[facility] [address] [place], [address] MCHC (RBC) [Mass/Vol] 33.1 g/dL Normal 32-36 [facility] Comment on above: Performed By: #### L 100.0100, L500.4050, L503.5510 ####[facility] [address] [place], [address] MCV (RBC) [Entitic vol] 87.3 fL Normal 80-94 [facility] Comment on above: Performed By: #### L 100.0100, L500.4050, L503.5510 ####[facility] [address] [place], [address] Monocytes/100 WBC (Bld) 11.7 % High 0-10 [facility] Comment on above: Performed By: #### L 100.0100, L500.4050, L503.5510 ####[facility] [address] [place], [address] Neutrophils/100 WBC (Bld) 67.1 % Normal 47-70 [facility] Comment on above: Performed By: #### L 100.0100, L500.4050, L503.5510 ####[facility] [address] [place], [address] Nucleated RBC (Bld) [#/Vol] 0 10*3/uL Normal 0-5 [facility] Comment on above: Performed By: #### L 100.0100, L500.4050, L503.5510 ####[facility] [address] [place], [address] Platelet mean volume (Bld) [Entitic vol] 12.0 fL Normal 6.2-12.0 [facility] Comment on above: Performed By: #### L 100.0100, L500.4050, L503.5510 ####[facility] [address] [place], [address] Platelets (Bld) [#/Vol] 106 10*3/uL Low 150-450 [facility] Comment on above: Performed By: #### L 100.0100, L500.4050, L503.5510 ####[facility] [address] [place], [address] RBC (Bld) [#/Vol] 2.84 10*6/uL Low 4.6-6.2 [facility] Comment on above: Performed By: #### L 100.0100, L500.4050, L503.5510 ####[facility] [address] [place], [address] RDW SD 53.5 fl High 35.1-43.9 [facility] Comment on above: Performed By: #### L 100.0100, L500.4050, L503.5510 ####[facility] [address] [place], [address] WBC (Bld) [#/Vol] 8.5 10*3/uL Normal 4.4-11.0 [facility] Comment on above: Performed By: #### L 100.0100, L500.4050, L503.5510 ####[facility] [address] [place], [address] Carbon dioxide, total [Moles /volume] in Central venous bloodOrdered By: Jerald Sherwood on 02-16-2025 CO2 [Moles/Vol] 24.1 mmol/L 21.0-32.0 [facility] Chloride assayOrdered By: Paulette Sherwood on 02-16-2025 Chloride [Moles/Vol] 99 mmol/L 98-108 [facility] Comprehensive Metabolic Prof ilon 02-16-2025 Albumin [Mass/Vol] 2.3 g/dL Low 3.5-5.0 [facility] Comment on above: Performed By: #### L 100.0100, L500.4050, L503.5510 ####[facility] [address] [place], [address] Albumin/Globulin [Mass ratio] 0.7 {ratio} Low 0.9-2.4 [facility] Comment on above: Performed By: #### L 100.0100, L500.4050, L503.5510 ####[facility] [address] [place], [address] ALK PHOS 310 U/L High 40-129 [facility] Comment on above: Performed By: #### L 100.0100, L500.4050, L503.5510 ####[facility] [address] [place], [address] ALT [Catalytic activity/Vol] 51 U/L High <=46 [facility] Comment on above: Performed By: #### L 100.0100, L500.4050, L503.5510 ####[facility] [address] [place], [address] AST [Catalytic activity/Vol] 109 U/L High <=37 [facility] Comment on above: Performed By: #### L 100.0100, L500.4050, L503.5510 ####[facility] [address] [place], [address] Bilirubin [Mass/Vol] 7.29 mg/dL High 0.00-1.30 [facility] Comment on above: Performed By: #### L 100.0100, L500.4050, L503.5510 ####[facility] [address] [place], [address] BUN/CRE 9.4 RATIO Low 10-20 [facility] Comment on above: Performed By: #### L 100.0100, L500.4050, L503.5510 ####[facility] [address] [place], [address] Calcium [Mass/Vol] 7.8 mg/dL Normal 7.6-11.0 [facility] Comment on above: Performed By: #### L 100.0100, L500.4050, L503.5510 ####[facility] [address] [place], [address] Chloride [Moles/Vol] 99 mmol/L Normal 98-108 [facility] Comment on above: Performed By: #### L 100.0100, L500.4050, L503.5510 ####[facility] [address] [place], [address] CO2 [Moles/Vol] 24.1 mmol/L Normal 21.0-32.0 [facility] Comment on above: Performed By: #### L 100.0100, L500.4050, L503.5510 ####[facility] [address] [place], [address] Creatinine [Mass/Vol] 1.30 mg/dL High 0.70-1.20 [facility] Comment on above: Result Comment: Icte daquan present, Results may be affected. Performed By: #### L 100.0100, L500.4050, L503.5510 ####[facility] [address] [place], [address] GAP 12 Normal 5-15 [facility] Comment on above: Performed By: #### L 100.0100, L500.4050, L503.5510 ####[facility] [address] [place], [address] GFR/1.73 sq M.predicted among non-blacks MDRD (S/P/Bld) [Vol rate/Area] 64 mL/min/{1.73_m2} Normal >60 [facility] Comment on above: Result Comment: mL/m in/1.73m2 CKD-EPI Creatinine Equation (2020) Performed By: #### L 100.0100, L500.4050, L503.5510 ####[facility] [address] [place], [address] Globulin (S) [Mass/Vol] 3.5 g/dL Normal 2.2-4.2 [facility] Comment on above: Performed By: #### L 100.0100, L500.4050, L503.5510 ####[facility] [address] [place], [address] Glucose [Mass/Vol] 250 mg/dL High 70-99 [facility] Comment on above: Performed By: #### L 100.0100, L500.4050, L503.5510 ####[facility] [address] [place], [address] Potassium [Moles/Vol] 3.1 mmol/L Low 3.3-5.1 [facility] Comment on above: Performed By: #### L 100.0100, L500.4050, L503.5510 ####[facility] [address] [place], [address] Sodium [Moles/Vol] 135 mmol/L Normal 133-145 [facility] Comment on above: Performed By: #### L 100.0100, L500.4050, L503.5510 ####[facility] [address] [place], [address] T PROT 5.8 g/dL Low 5.9-8.4 [facility] Comment on above: Performed By: #### L 100.0100, L500.4050, L503.5510 ####[facility] [address] [place], [address] Urea nitrogen [Mass/Vol] 12 mg/dL Normal 4-19 [facility] Comment on above: Performed By: #### L 100.0100, L500.4050, L503.5510 ####[facility] [address] [place], [address] Emergency Department Summary on 02-16-2025 Emergency Department Summary Normal [facility] Eosinophil percentageOrdered By: Jerald Sherwood on 02-16-2025 Eosinophils/100 WBC (Bld) 5.4 % High 0-5 [facility] Erythrocyte distribution wid th ratioOrdered By: Jerald Sherwood on 02-16-2025 Erythrocyte distribution width (RBC) [Ratio] 18.7 % High 11.6-14.6 [facility] Erythrocyte distribution wid th standard deviationOrdered By: Jerald Sherwood on 02-16-2025 Erythrocyte distribution width (RBC) [Ratio] 53.5 fl High 35.1-43.9 [facility] Glomerular filtration rate ( GFR) estimation/1.73 sq m using serum, plasma, or whole bOrdered By: Jerald Sherwood on 02-16-2025 GFR/1.73 sq M.predicted among non-blacks MDRD (S/P/Bld) [Vol rate/Area] 64 mL/min/{1.73_m2} >60 [facility] H AND P Exam - Hospitaliston 02-16-2025 H&P Exam - Hospitalist Normal [facility] Hematocrit Auto (Bld) [Volum e fraction]Ordered By: Jerald Sherwood on 02-16-2025 Hematocrit (Bld) [Volume fraction] 24.8 % Low 40-54 [facility] Hemoglobin measurementOrdere d By: Jerald Sherwood on 02-16-2025 Hemoglobin (Bld) [Mass/Vol] 8.2 g/dL Low 13.0-16.5 [facility] Immature granulocytes/100 WB C Auto (Bld)Ordered By: Jerald Sherwood on 02-16-2025 Immature granulocytes/100 WBC (Bld) 0.200 % 0.0-0.9 [facility] LDHon 02-16-2025 LDH 273 U/L High 87-241 [facility] Comment on above: Performed By: #### L 504.2610, L501.4700 ####[facility] [address] [place], [place], [id number] MCV (mean corpuscular volume ) determinationOrdered By: Jerald Sherwood on 02-16-2025 MCV (RBC) [Entitic vol] 87.3 fL 80-94 [facility] Magnesiumon 02-16-2025 Magnesium [Mass/Vol] 1.3 mg/dL Low 1.5-2.2 [facility] Comment on above: Performed By: #### L 501.2300, L501.5200 ####[facility] [address] [place], [place], [id number] Mean corpuscular hemoglobin (MCH) determinationOrdered By: Jerald Sherwood on 02-16-2025 MCH (RBC) [Entitic mass] 28.9 pg 27.0-32.0 [facility] Monocyte percentageOrdered B y: Jerald Sherwood on 02-16-2025 Monocytes/100 WBC (Bld) 11.7 % High 0-10 [facility] Neutrophil percentageOrdered By: Jerald Sherwood on 02-16-2025 Neutrophils/100 WBC (Bld) 67.1 % 47-70 [facility] No Panel InformationOrdered By: Jerald Sherwood on 02-16-2025 109 U/L High <38 [facility] Phosphoruson 02-16-2025 Phosphate [Mass/Vol] 2.3 mg/dL Low 2.7-4.5 [facility] Comment on above: Performed By: #### L 501.2300, L501.5200 ####[facility] [address] [place], [place], [id number] Platelet countOrdered By: Paulette Sherwood on 02-16-2025 Platelets (Bld) [#/Vol] 106 10*3/uL Low 150-450 [facility] Potassium measurement (mass/ volume)Ordered By: Jerald Sherwood on 02-16-2025 Potassium (Unsp spec) [Mass/Vol] 3.1 mmol/L Low 3.3-5.1 [facility] Prothrombin Time w/INRon INR Coag (PPP) [Relative time] 1.8 {INR} Normal [facility] Comment on above: Performed By: #### L 300.3900 ####[facility] [address] [place], [address] PT Coag (PPP) [Time] 21.1 s High 11.7-14.9 [facility] Comment on above: Performed By: #### L 300.3900 ####[facility] [address] [place], [place], [id number] RBC Auto (Bld) [#/Vol]Ordere d By: Jerald Sherwood on 02-16-2025 RBC (Bld) [#/Vol] 2.84 10*6/uL Low 4.6-6.2 [facility] Serum creatinine measurement (mass/volume)Ordered By: Jerald Sherwood on 02-16-2025 Creatinine [Mass/Vol] 1.30 mg/dL High 0.70-1.20 [facility] Serum globulin measurementOr dered By: Jerald Sherwood on 02-16-2025 Globulin (S) [Mass/Vol] 3.5 g/dL 2.2-4.2 [facility] Serum glucose measurement (m ass/volume)Ordered By: Jerald Sherwood on 02-16-2025 Glucose [Mass/Vol] 250 mg/dL High 70-99 [facility] [facility] Serum or plasma alanine thomas otransferase (ALT) measurementOrdered By: Jerald Sherwood on 02-16-2025 ALT [Catalytic activity/Vol] 51 U/L High <47 [facility] Serum or plasma albumin roosevelt urement (mass/volume)Ordered By: Jerald Sherwood on 02-16-2025 Albumin [Mass/Vol] 2.3 g/dL Low 3.5-5.0 [facility] Serum or plasma albumin/glob ulin mass ratioOrdered By: Jerald Sherwood on 02-16-2025 Albumin/Globulin [Mass ratio] 0.7 {ratio} Low 0.9-2.4 [facility] Serum or plasma alkaline kendrick sphatase measurementOrdered By: Jerald Sherwood on 02-16-2025 ALP [Catalytic activity/Vol] 310 U/L High 40-129 [facility] Serum or plasma calcium roosevelt urement (mass/volume)Ordered By: Jerald Sherwood on 02-16-2025 Calcium [Mass/Vol] 7.8 mg/dL 7.6-11.0 [facility] Serum or plasma urea nitroge n measurement (mass/volume)Ordered By: Jerald Sherwood on 02-16-2025 Urea nitrogen [Mass/Vol] 12 mg/dL 4-19 [facility] Sodium levelOrdered By: Jerald Sherwood on 02-16-2025 Sodium [Moles/Vol] 135 mmol/L 133-145 [facility] Total proteinOrdered By: Candie Sherwood on 02-16-2025 Protein [Mass/Vol] 5.8 g/dL Low 5.9-8.4 [facility] Venous blood ammonia measure mentOrdered By: Jerald Sherwood on 02-16-2025 Ammonia (P) [Moles/Vol] 88.0 umol/L High 16-60 [facility] Comment on above: Performed By: #### L 100.0100, L500.4050, L503.5510 ####[facility] [address] [place], [address] White blood cell (WBC) count Ordered By: Jerald Sherwood on 02-16-2025 WBC (Bld) [#/Vol] 8.5 10*3/uL 4.4-11.0 [facility] Abdomen/Pelvis W IV Cont ONL Yon 02-13-2025 Abdomen/Pelvis W IV Cont ONLY Normal [facility] Absolute lymphocyte countOrd ered By: Luis Carlos Anderson on 02-13-2025 Lymphocytes Auto (Unsp spec) [#/Vol] 1.20 10*3/uL 0.83-4.51 [facility] Anion gap in Serum or Plasma Ordered By: Luis Carlos Anderson on 02-13-2025 Anion gap [Moles/Vol] 14 mmol/L 5-15 [facility] Automated lymphocyte count a s percentage of total leukocytesOrdered By: Luis Carlos Anderson on 02-13-2025 Lymphocytes/100 WBC Auto (Unsp spec) 13.9 % Low 19-41 [facility] BUN/creatinine ratioOrdered By: Luis Carlos Anderson on 02-13-2025 Urea nitrogen/Creatinine [Mass ratio] 14.3 mg/mg 10-20 [facility] Basophil percentageOrdered B y: Luis Carlos Anderson on 02-13-2025 Basophils/100 WBC (Bld) 0.3 % 0-1 [facility] Bilirubin, totalOrdered By: Luis Carlos Anderson on 02-13-2025 Bilirubin [Mass/Vol] 6.20 mg/dL High 0.00-1.30 [facility] Blood manual differential co mment interpretation (narrative result)Ordered By: Luis Carlos Anderson on 02-13-2025 Manual differential comment Marco Antonio (Bld) [Interp] SCANNED [facility] CBC W/Diff, Automatedon 02-01 PLT EST MOD DEC Normal ADEQ [facility] Comment on above: Performed By: #### L 100.0100, L500.4050, L501.2450 ####[facility] [address] [place], [address] Platelet mean volume (Bld) [Entitic vol] 10.8 fL Normal 6.2-12.0 [facility] Comment on above: Performed By: #### L 100.0100, L500.4050, L501.2450 ####[facility] [address] [place], [address] Platelets (Bld) [#/Vol] 83 10*3/uL Low 150-450 [facility] Comment on above: Result Comment: NO C LUMPING SEEN Performed By: #### L 100.0100, L500.4050, L501.2450 ####[facility] [address] [place], [address] SMEAR COMMENT SCANNED Normal [facility] Comment on above: Performed By: #### L 100.0100, L500.4050, L5.2450 ####[facility] [address] [place], [address] Carbon dioxide, total [Moles /volume] in Central venous bloodOrdered By: Luis Carlos Anderson on 02-13-2025 CO2 [Moles/Vol] 18.4 mmol/L Low 21.0-32.0 [facility] Chloride assayOrdered By: Yaya Anderson on 02-13-2025 Chloride [Moles/Vol] 102 mmol/L 98-108 [facility] Comprehensive Metabolic Prof ilon 02-13-2025 Albumin [Mass/Vol] 2.2 g/dL Low 3.5-5.0 [facility] Comment on above: Performed By: #### L 100.0100, L500.4050, L501.2450 ####[facility] [address] [place], [address] Albumin/Globulin [Mass ratio] 0.6 {ratio} Low 0.9-2.4 [facility] Comment on above: Performed By: #### L 100.0100, L500.4050, L501.2450 ####[facility] [address] [place], [address] ALK PHOS 335 U/L High 40-129 [facility] Comment on above: Performed By: #### L 100.0100, L500.4050, L501.2450 ####[facility] [address] [place], [address] ALT [Catalytic activity/Vol] 53 U/L High <=46 [facility] Comment on above: Performed By: #### L 100.0100, L500.4050, L501.2450 ####[facility] [address] [place], [address] AST [Catalytic activity/Vol] 120 U/L High <=37 [facility] Comment on above: Performed By: #### L 100.0100, L500.4050, L501.2450 ####[facility] [address] [place], [address] Bilirubin [Mass/Vol] 6.20 mg/dL High 0.00-1.30 [facility] Comment on above: Performed By: #### L 100.0100, L500.4050, L501.2450 ####[facility] [address] [place], [address] BUN/CRE 14.3 RATIO Normal 10-20 [facility] Comment on above: Performed By: #### L 100.0100, L500.4050, L501.2450 ####[facility] [address] [place], [address] Calcium [Mass/Vol] 8.3 mg/dL Normal 7.6-11.0 [facility] Comment on above: Performed By: #### L 100.0100, L500.4050, L501.2450 ####[facility] [address] [place], [address] Chloride [Moles/Vol] 102 mmol/L Normal 98-108 [facility] Comment on above: Performed By: #### L 100.0100, L500.4050, L501.2450 ####[facility] [address] [place], [address] CO2 [Moles/Vol] 18.4 mmol/L Low 21.0-32.0 [facility] Comment on above: Performed By: #### L 100.0100, L500.4050, L501.2450 ####[facility] [address] [place], [address] Creatinine [Mass/Vol] 1.78 mg/dL High 0.70-1.20 [facility] Comment on above: Result Comment: Icte daquan present, Results may be affected. Performed By: #### L 100.0100, L500.4050, L501.2450 ####[facility] [address] [place], [address] ECRCL 53.12 ml/min Normal 50-250 [facility] Comment on above: Performed By: #### L 100.0100, L500.4050, L501.2450 ####[facility] [address] [place], [address] GAP 14 Normal 5-15 [facility] Comment on above: Performed By: #### L 100.0100, L500.4050, L501.2450 ####[facility] [address] [place], [address] GFR/1.73 sq M.predicted among non-blacks MDRD (S/P/Bld) [Vol rate/Area] 44 mL/min/{1.73_m2} Low >60 [facility] Comment on above: Result Comment: mL/m in/1.73m2 CKD-EPI Creatinine Equation (2020) Performed By: #### L 100.0100, L500.4050, L501.2450 ####[facility] [address] [place], [address] Globulin (S) [Mass/Vol] 3.7 g/dL Normal 2.2-4.2 [facility] Comment on above: Performed By: #### L 100.0100, L500.4050, L501.2450 ####[facility] [address] [place], [address] Glucose [Mass/Vol] 169 mg/dL High 70-99 [facility] Comment on above: Performed By: #### L 100.0100, L500.4050, L501.2450 ####[facility] [address] [place], [address] Potassium [Moles/Vol] 3.4 mmol/L Normal 3.3-5.1 [facility] Comment on above: Result Comment: Hemo lysis present, Results??could be affected.?? Performed By: #### L 100.0100, L500.4050, L501.2450 ####[facility] [address] [place], [address] Sodium [Moles/Vol] 135 mmol/L Normal 133-145 [facility] Comment on above: Performed By: #### L 100.0100, L500.4050, L501.2450 ####[facility] [address] [place], [address] T PROT 5.8 g/dL Low 5.9-8.4 [facility] Comment on above: Performed By: #### L 100.0100, L500.4050, L501.2450 ####[facility] [address] [place], [address] Urea nitrogen [Mass/Vol] 25 mg/dL High 4-19 [facility] Comment on above: Performed By: #### L 100.0100, L500.4050, L501.2450 ####[facility] [address] [place], [address] Emergency Department Summary on 02-13-2025 Emergency Department Summary Normal [facility] Eosinophil percentageOrdered By: Luis Carlos Anderson on 02-13-2025 Eosinophils/100 WBC (Bld) 5.1 % High 0-5 [facility] Erythrocyte distribution wid th ratioOrdered By: Luis Carlos Anderson on 02-13-2025 Erythrocyte distribution width (RBC) [Ratio] 17.4 % High 11.6-14.6 [facility] Erythrocyte distribution wid th standard deviationOrdered By: Luis Carlos Anderson on 02-13-2025 Erythrocyte distribution width (RBC) [Ratio] 52.3 fl High 35.1-43.9 [facility] Glomerular filtration rate ( GFR) estimation/1.73 sq m using serum, plasma, or whole bOrdered By: Luis Carlos Anderson on 02-13-2025 GFR/1.73 sq M.predicted among non-blacks MDRD (S/P/Bld) [Vol rate/Area] 44 mL/min/{1.73_m2} Low >60 [facility] Hematocrit Auto (Bld) [Volum e fraction]Ordered By: Luis Carlos Anderson on 02-13-2025 Hematocrit (Bld) [Volume fraction] 24.1 % Low 40-54 [facility] Hemoglobin measurementOrdere d By: Luis Carlos Anderson on 02-13-2025 Hemoglobin (Bld) [Mass/Vol] 8.3 g/dL Low 13.0-16.5 [facility] Immature granulocytes/100 WB C Auto (Bld)Ordered By: Luis Carlos Anderson on 02-13-2025 Immature granulocytes/100 WBC (Bld) 0.500 % 0.0-0.9 [facility] Lipaseon 02-13-2025 Lipase [Catalytic activity/Vol] 60 U/L Normal 13-75 [facility] Comment on above: Result Comment: Siddhartha bhat note:LIPASE revised reference range effective 22.New Lipase methodology. Expected to produce lower valuesthan the previous assay method.NEW Reference Range: 13 - 75 U/L Performed By: #### L 100.0100, L500.4050, L501.2450 ####[facility] [address] [place], [address] MCV (mean corpuscular volume ) determinationOrdered By: Luis Carlos Anderson on 02-13-2025 MCV (RBC) [Entitic vol] 84.9 fL 80-94 [facility] Mean corpuscular hemoglobin (MCH) determinationOrdered By: Luis Carlos Anderson on 02-13-2025 MCH (RBC) [Entitic mass] 29.2 pg 27.0-32.0 [facility] Monocyte percentageOrdered B y: Luis Carlos Anderson on 02-13-2025 Monocytes/100 WBC (Bld) 16.1 % High 0-10 [facility] Neutrophil percentageOrdered By: Luis Carlos Anderson on 02-13-2025 Neutrophils/100 WBC (Bld) 64.1 % 47-70 [facility] No Panel InformationOrdered By: Luis Carlos Anderson on 02-13-2025 120 U/L High <38 [facility] Platelet countOrdered By: felipe Anderson on 02-13-2025 Platelets (Bld) [#/Vol] 83 10*3/uL Low 150-450 [facility] Platelet estimateOrdered By: Luis Carlos Anderson on 02-13-2025 Platelets LM Ql (Bld) MOD DEC ADEQ [facility] Potassium measurement (mass/ volume)Ordered By: Luis Carlos Anderson on 02-13-2025 Potassium (Unsp spec) [Mass/Vol] 3.4 mmol/L 3.3-5.1 [facility] RBC Auto (Bld) [#/Vol]Ordere d By: Luis Carlos Anderson on 02-13-2025 RBC (Bld) [#/Vol] 2.84 10*6/uL Low 4.6-6.2 [facility] Serum creatinine measurement (mass/volume)Ordered By: Luis Carlos Anderson on 02-13-2025 Creatinine [Mass/Vol] 1.78 mg/dL High 0.70-1.20 [facility] Serum globulin measurementOr dered By: Luis Carlos Anderson on 02-13-2025 Globulin (S) [Mass/Vol] 3.7 g/dL 2.2-4.2 [facility] Serum glucose measurement (m ass/volume)Ordered By: Luis Carlos Anderson on 02-13-2025 Glucose [Mass/Vol] 169 mg/dL High 70-99 [facility] Serum or plasma alanine thomas otransferase (ALT) measurementOrdered By: Luis Carlos Anderson on 02-13-2025 ALT [Catalytic activity/Vol] 53 U/L High <47 [facility] Serum or plasma albumin roosevelt urement (mass/volume)Ordered By: Luis Carlos Anderson on 02-13-2025 Albumin [Mass/Vol] 2.2 g/dL Low 3.5-5.0 [facility] Serum or plasma albumin/glob ulin mass ratioOrdered By: Luis Carlos Anderson on 02-13-2025 Albumin/Globulin [Mass ratio] 0.6 {ratio} Low 0.9-2.4 [facility] Serum or plasma alkaline kendrick sphatase measurementOrdered By: Luis Carlos Anderson on 02-13-2025 ALP [Catalytic activity/Vol] 335 U/L High 40-129 [facility] Serum or plasma calcium roosevelt urement (mass/volume)Ordered By: Luis Carlos Anderson on 02-13-2025 Calcium [Mass/Vol] 8.3 mg/dL 7.6-11.0 [facility] Serum or plasma urea nitroge n measurement (mass/volume)Ordered By: Luis Carlos Anderson on 02-13-2025 Urea nitrogen [Mass/Vol] 25 mg/dL High 4-19 [facility] Sodium levelOrdered By: Yunior Anderson on 02-13-2025 Sodium [Moles/Vol] 135 mmol/L 133-145 [facility] Total proteinOrdered By: Joann Anderson on 02-13-2025 Protein [Mass/Vol] 5.8 g/dL Low 5.9-8.4 [facility] White blood cell (WBC) count Ordered By: Luis Carlos Anderson on 02-13-2025 WBC (Bld) [#/Vol] 8.6 10*3/uL 4.4-11.0 [facility] Operative Reporton Operative Report Normal [facility] Paracentesis with USon 02-11 Paracentesis with US Normal [facility] Emergency Department Summary on 02-08-2025 Emergency Department Summary Normal [facility] Abdomen/Pelvis W IV Cont ONL Yon 02-07-2025 Abdomen/Pelvis W IV Cont ONLY Normal [facility] Absolute lymphocyte countOrd ered By: ED PROVIDER on 02-07-2025 Lymphocytes Auto (Unsp spec) [#/Vol] 1.39 10*3/uL 0.83-4.51 [facility] Anion gap in Serum or Plasma Ordered By: ED PROVIDER on 02-07-2025 Anion gap [Moles/Vol] 9 mmol/L 5-15 [facility] Automated lymphocyte count a s percentage of total leukocytesOrdered By: ED PROVIDER on 02-07-2025 Lymphocytes/100 WBC Auto (Unsp spec) 12.8 % Low 19-41 [facility] BUN/creatinine ratioOrdered By: ED PROVIDER on 02-07-2025 Urea nitrogen/Creatinine [Mass ratio] 13.9 mg/mg 10-20 [facility] Basophil percentageOrdered B y: ED PROVIDER on 02-07-2025 Basophils/100 WBC (Bld) 0.5 % 0-1 [facility] Bilirubin, totalOrdered By: ED PROVIDER on 02-07-2025 Bilirubin [Mass/Vol] 1.92 mg/dL High 0.00-1.30 [facility] CBC W/Diff, Automatedon Absolute Lymph 1.39 X10 3/uL Normal 0.83-4.51 [facility] Comment on above: Performed By: #### L 100.0100, L501.2450, L500.4050 ####[facility] [address] [place], [place], [id number] Absolute Neut 7.9 X10 3/uL High 2.0-7.7 [facility] Comment on above: Performed By: #### L 100.0100, L501.2450, L500.4050 ####[facility] [address] [place], [address] Basophils/100 WBC (Bld) 0.5 % Normal 0-1 [facility] Comment on above: Performed By: #### L 100.0100, L501.2450, L500.4050 ####[facility] [address] [place], [address] Eosinophils/100 WBC (Bld) 5.4 % High 0-5 [facility] Comment on above: Performed By: #### L 100.0100, L501.2450, L500.4050 ####[facility] [address] [place], [address] Erythrocyte distribution width (RBC) [Ratio] 17.9 % High 11.6-14.6 [facility] Comment on above: Performed By: #### L 100.0100, L501.2450, L500.4050 ####[facility] [address] [place], [address] Hematocrit (Bld) [Volume fraction] 28.8 % Low 40-54 [facility] Comment on above: Performed By: #### L 100.0100, L501.2450, L500.4050 ####[facility] [address] [place], [address] Hemoglobin (Bld) [Mass/Vol] 9.2 g/dL Low 13.0-16.5 [facility] Comment on above: Performed By: #### L 100.0100, L501.2450, L500.4050 ####[facility] [address] [place], [address] IG% 0.400 Normal 0.0-0.9 [facility] Comment on above: Result Comment: IG% - Immature Granulocytes (promyelocytes, myelocytes andmetamyelocytes) > 1% indicates that a LEFT SHIFT is Present. Performed By: #### L 100.0100, L501.2450, L500.4050 ####[facility] [address] [place], [address] Lymphocytes/100 WBC (Bld) 12.8 % Low 19-41 [facility] Comment on above: Performed By: #### L 100.0100, L501.2450, L500.4050 ####[facility] [address] [place], [address] MCH (RBC) [Entitic mass] 29.0 pg Normal 27.0-32.0 [facility] Comment on above: Performed By: #### L 100.0100, L501.2450, L500.4050 ####[facility] [address] [place], [address] MCHC (RBC) [Mass/Vol] 31.9 g/dL Low 32-36 [facility] Comment on above: Performed By: #### L 100.0100, L501.2450, L500.4050 ####[facility] [address] [place], [address] MCV (RBC) [Entitic vol] 90.9 fL Normal 80-94 [facility] Comment on above: Performed By: #### L 100.0100, L501.2450, L500.4050 ####[facility] [address] [place], [address] Monocytes/100 WBC (Bld) 8.1 % Normal 0-10 [facility] Comment on above: Performed By: #### L 100.0100, L501.2450, L500.4050 ####[facility] [address] [place], [address] Neutrophils/100 WBC (Bld) 72.8 % High 47-70 [facility] Comment on above: Performed By: #### L 100.0100, L501.2450, L500.4050 ####[facility] [address] [place], [address] Nucleated RBC (Bld) [#/Vol] 0 10*3/uL Normal 0-5 [facility] Comment on above: Performed By: #### L 100.0100, L501.2450, L500.4050 ####[facility] [address] [place], [address] Platelet mean volume (Bld) [Entitic vol] 10.1 fL Normal 6.2-12.0 [facility] Comment on above: Performed By: #### L 100.0100, L501.2450, L500.4050 ####[facility] [address] [place], [address] Platelets (Bld) [#/Vol] 131 10*3/uL Low 150-450 [facility] Comment on above: Performed By: #### L 100.0100, L501.2450, L500.4050 ####[facility] [address] [place], [address] RBC (Bld) [#/Vol] 3.17 10*6/uL Low 4.6-6.2 [facility] Comment on above: Performed By: #### L 100.0100, L501.2450, L500.4050 ####[facility] [address] [place], [address] RDW SD 58.3 fl High 35.1-43.9 [facility] Comment on above: Performed By: #### L 100.0100, L501.2450, L500.4050 ####[facility] [address] [place], [address] WBC (Bld) [#/Vol] 10.8 10*3/uL Normal 4.4-11.0 [facility] Comment on above: Performed By: #### L 100.0100, L501.2450, L500.4050 ####[facility] [address] [place], [address] Carbon dioxide, total [Moles /volume] in Central venous bloodOrdered By: ED PROVIDER on 02-07-2025 CO2 [Moles/Vol] 22.7 mmol/L 21.0-32.0 [facility] Chloride assayOrdered By: ED PROVIDER on 02-07-2025 Chloride [Moles/Vol] 106 mmol/L 98-108 [facility] Comprehensive Metabolic Prof ilon 02-07-2025 Albumin [Mass/Vol] 2.2 g/dL Low 3.5-5.0 [facility] Comment on above: Performed By: #### L 100.0100, L501.2450, L500.4050 ####[facility] [address] [place], [address] Albumin/Globulin [Mass ratio] 0.6 {ratio} Low 0.9-2.4 [facility] Comment on above: Performed By: #### L 100.0100, L501.2450, L500.4050 ####[facility] [address] [place], [address] ALK PHOS 218 U/L High 40-129 [facility] Comment on above: Performed By: #### L 100.0100, L501.2450, L500.4050 ####[facility] [address] [place], [address] ALT [Catalytic activity/Vol] 30 U/L Normal <=46 [facility] Comment on above: Performed By: #### L 100.0100, L501.2450, L500.4050 ####[facility] [address] [place], [address] AST [Catalytic activity/Vol] 55 U/L High <=37 [facility] Comment on above: Performed By: #### L 100.0100, L501.2450, L500.4050 ####[facility] [address] [place], [address] Bilirubin [Mass/Vol] 1.92 mg/dL High 0.00-1.30 [facility] Comment on above: Performed By: #### L 100.0100, L501.2450, L500.4050 ####[facility] [address] [place], [address] BUN/CRE 13.9 RATIO Normal 10-20 [facility] Comment on above: Performed By: #### L 100.0100, L501.2450, L500.4050 ####[facility] [address] [place], [address] Calcium [Mass/Vol] 8.4 mg/dL Normal 7.6-11.0 [facility] Comment on above: Performed By: #### L 100.0100, L501.2450, L500.4050 ####[facility] [address] [place], [address] Chloride [Moles/Vol] 106 mmol/L Normal 98-108 [facility] Comment on above: Performed By: #### L 100.0100, L501.2450, L500.4050 ####[facility] [address] [place], [address] CO2 [Moles/Vol] 22.7 mmol/L Normal 21.0-32.0 [facility] Comment on above: Performed By: #### L 100.0100, L501.2450, L500.4050 ####[facility] [address] [place], [address] Creatinine [Mass/Vol] 1.05 mg/dL Normal 0.70-1.20 [facility] Comment on above: Performed By: #### L 100.0100, L501.2450, L500.4050 ####[facility] [address] [place], [address] GAP 9 Normal 5-15 [facility] Comment on above: Performed By: #### L 100.0100, L501.2450, L500.4050 ####[facility] [address] [place], [address] GFR/1.73 sq M.predicted among non-blacks MDRD (S/P/Bld) [Vol rate/Area] 82 mL/min/{1.73_m2} Normal >60 [facility] Comment on above: Result Comment: mL/m in/1.73m2 CKD-EPI Creatinine Equation (2020) Performed By: #### L 100.0100, L501.2450, L500.4050 ####[facility] [address] [place], [address] Globulin (S) [Mass/Vol] 3.5 g/dL Normal 2.2-4.2 [facility] Comment on above: Performed By: #### L 100.0100, L501.2450, L500.4050 ####[facility] [address] [place], [address] Glucose [Mass/Vol] 142 mg/dL High 70-99 [facility] Comment on above: Performed By: #### L 100.0100, L501.2450, L500.4050 ####[facility] [address] [place], [address] Potassium [Moles/Vol] 3.7 mmol/L Normal 3.3-5.1 [facility] Comment on above: Performed By: #### L 100.0100, L501.2450, L500.4050 ####[facility] [address] [place], [address] Sodium [Moles/Vol] 137 mmol/L Normal 133-145 [facility] Comment on above: Performed By: #### L 100.0100, L501.2450, L500.4050 ####[facility] [address] [place], [address] T PROT 5.8 g/dL Low 5.9-8.4 [facility] Comment on above: Performed By: #### L 100.0100, L501.2450, L500.4050 ####[facility] [address] [place], [address] Urea nitrogen [Mass/Vol] 15 mg/dL Normal 4-19 [facility] Comment on above: Performed By: #### L 100.0100, L501.2450, L500.4050 ####[facility] [address] [place], [address] Eosinophil percentageOrdered By: ED PROVIDER on 02-07-2025 Eosinophils/100 WBC (Bld) 5.4 % High 0-5 [facility] Erythrocyte distribution wid th ratioOrdered By: ED PROVIDER on 02-07-2025 Erythrocyte distribution width (RBC) [Ratio] 17.9 % High 11.6-14.6 [facility] Erythrocyte distribution wid th standard deviationOrdered By: ED PROVIDER on 02-07-2025 Erythrocyte distribution width (RBC) [Ratio] 58.3 fl High 35.1-43.9 [facility] Glomerular filtration rate ( GFR) estimation/1.73 sq m using serum, plasma, or whole bOrdered By: ED PROVIDER on 02-07-2025 GFR/1.73 sq M.predicted among non-blacks MDRD (S/P/Bld) [Vol rate/Area] 82 mL/min/{1.73_m2} >60 [facility] Hematocrit Auto (Bld) [Volum e fraction]Ordered By: ED PROVIDER on 02-07-2025 Hematocrit (Bld) [Volume fraction] 28.8 % Low 40-54 [facility] Hemoglobin measurementOrdere d By: ED PROVIDER on 02-07-2025 Hemoglobin (Bld) [Mass/Vol] 9.2 g/dL Low 13.0-16.5 [facility] Immature granulocytes/100 WB C Auto (Bld)Ordered By: ED PROVIDER on 02-07-2025 Immature granulocytes/100 WBC (Bld) 0.400 % 0.0-0.9 [facility] Lipaseon 02-07-2025 Lipase [Catalytic activity/Vol] 35 U/L Normal 13-75 [facility] Comment on above: Result Comment: Siddhartha bhat note:LIPASE revised reference range effective 22.New Lipase methodology. Expected to produce lower valuesthan the previous assay method.NEW Reference Range: 13 - 75 U/L Performed By: #### L 100.0100, L501.2450, L500.4050 ####[facility] [address] [place], [address] MCV (mean corpuscular volume ) determinationOrdered By: ED PROVIDER on 02-07-2025 MCV (RBC) [Entitic vol] 90.9 fL 80-94 [facility] Mean corpuscular hemoglobin (MCH) determinationOrdered By: ED PROVIDER on 02-07-2025 MCH (RBC) [Entitic mass] 29.0 pg 27.0-32.0 [facility] Monocyte percentageOrdered B y: ED PROVIDER on 02-07-2025 Monocytes/100 WBC (Bld) 8.1 % 0-10 [facility] Neutrophil percentageOrdered By: ED PROVIDER on 02-07-2025 Neutrophils/100 WBC (Bld) 72.8 % High 47-70 [facility] No Panel InformationOrdered By: ED PROVIDER on 02-07-2025 55 U/L High <38 [facility] Platelet countOrdered By: ED PROVIDER on 02-07-2025 Platelets (Bld) [#/Vol] 131 10*3/uL Low 150-450 [facility] Potassium measurement (mass/ volume)Ordered By: ED PROVIDER on 02-07-2025 Potassium (Unsp spec) [Mass/Vol] 3.7 mmol/L 3.3-5.1 [facility] RBC Auto (Bld) [#/Vol]Ordere d By: ED PROVIDER on 02-07-2025 RBC (Bld) [#/Vol] 3.17 10*6/uL Low 4.6-6.2 [facility] Serum creatinine measurement (mass/volume)Ordered By: ED PROVIDER on 02-07-2025 Creatinine [Mass/Vol] 1.05 mg/dL 0.70-1.20 [facility] Serum globulin measurementOr dered By: ED PROVIDER on 02-07-2025 Globulin (S) [Mass/Vol] 3.5 g/dL 2.2-4.2 [facility] Serum glucose measurement (m ass/volume)Ordered By: ED PROVIDER on 02-07-2025 Glucose [Mass/Vol] 142 mg/dL High 70-99 [facility] Serum or plasma alanine thomas otransferase (ALT) measurementOrdered By: ED PROVIDER on 02-07-2025 ALT [Catalytic activity/Vol] 30 U/L <47 [facility] Serum or plasma albumin roosevelt urement (mass/volume)Ordered By: ED PROVIDER on 02-07-2025 Albumin [Mass/Vol] 2.2 g/dL Low 3.5-5.0 [facility] Serum or plasma albumin/glob ulin mass ratioOrdered By: ED PROVIDER on 02-07-2025 Albumin/Globulin [Mass ratio] 0.6 {ratio} Low 0.9-2.4 [facility] Serum or plasma alkaline kendrick sphatase measurementOrdered By: ED PROVIDER on 02-07-2025 ALP [Catalytic activity/Vol] 218 U/L High 40-129 [facility] Serum or plasma calcium roosevelt urement (mass/volume)Ordered By: ED PROVIDER on 02-07-2025 Calcium [Mass/Vol] 8.4 mg/dL 7.6-11.0 [facility] Serum or plasma urea nitroge n measurement (mass/volume)Ordered By: ED PROVIDER on 02-07-2025 Urea nitrogen [Mass/Vol] 15 mg/dL 4-19 [facility] Sodium levelOrdered By: ED Michael NUNEZ on 02-07-2025 Sodium [Moles/Vol] 137 mmol/L 133-145 [facility] Total proteinOrdered By: ED PROVIDER on 02-07-2025 Protein [Mass/Vol] 5.8 g/dL Low 5.9-8.4 [facility] White blood cell (WBC) count Ordered By: ED PROVIDER on 02-07-2025 WBC (Bld) [#/Vol] 10.8 10*3/uL 4.4-11.0 [facility] Culture, Blood (WB)on 2024 CUB Blood cultures x2, f rom two different sites No growth in 5 days. Normal [facility] Comment on above: Performed By: #### M 200.1000 ####[facility] [address] [place], [address] Anion gap in Serum or Plasma Ordered By: Yaritza Leo on 01-31-2025 Anion gap [Moles/Vol] 9 mmol/L 12-16 [facility] BUN/creatinine ratioOrdered By: Yaritza Leo on 01-31-2025 Urea nitrogen/Creatinine [Mass ratio] 10.7 mg/mg - [facility] Basic Metabolic Profile (BMP )on 01-31-2025 BUN/CRE 10.7 RATIO Normal 05-23 [facility] Comment on above: Performed By: #### L 500.2500, L100.0500 ####[facility] [address] [place], [address] Calcium [Mass/Vol] 8.5 mg/dL Normal 7.6-11.0 [facility] Comment on above: Performed By: #### L 500.2500, L100.0500 ####[facility] [address] [place], [address] Chloride [Moles/Vol] 102 mmol/L Normal 98-108 [facility] Comment on above: Performed By: #### L 500.2500, L100.0500 ####[facility] [address] [place], [address] CO2 [Moles/Vol] 22.6 mmol/L Normal 21.0-32.0 [facility] Comment on above: Performed By: #### L 500.2500, L100.0500 ####[facility] [address] [place], [address] Creatinine [Mass/Vol] 0.95 mg/dL Normal 0.70-1.20 [facility] Comment on above: Performed By: #### L 500.2500, L100.0500 ####[facility] [address] [place], [address] ECRCL 108.71 ml/min Normal 50-250 [facility] Comment on above: Performed By: #### L 500.2500, L100.0500 ####[facility] [address] [place], [address] GAP 9 Normal 5-15 [facility] Comment on above: Performed By: #### L 500.2500, L100.0500 ####[facility] [address] [place], [address] GFR/1.73 sq M.predicted among non-blacks MDRD (S/P/Bld) [Vol rate/Area] 93 mL/min/{1.73_m2} Normal >60 [facility] Comment on above: Result Comment: mL/m in/1.73m2 CKD-EPI Creatinine Equation (2020) Performed By: #### L 500.2500, L100.0500 ####[facility] [address] [place], [address] Glucose [Mass/Vol] 143 mg/dL High 70-99 [facility] Comment on above: Performed By: #### L 500.2500, L100.0500 ####[facility] [address] [place], [address] Potassium [Moles/Vol] 3.9 mmol/L Normal 3.3-5.1 [facility] Comment on above: Performed By: #### L 500.2500, L100.0500 ####[facility] [address] [place], [address] Sodium [Moles/Vol] 133 mmol/L Normal 133-145 [facility] Comment on above: Performed By: #### L 500.2500, L100.0500 ####[facility] [address] [place], [address] Urea nitrogen [Mass/Vol] 10 mg/dL Normal 4-19 [facility] Comment on above: Performed By: #### L 500.2500, L100.0500 ####[facility] [address] [place], [address] Bedside Glucoseon 01-31-2025 FINGERSTICK GLU 129 mg/dL High 74-106 [facility] Comment on above: Result Comment: BRISA GEMENT OF PATIENT CARE PER NURSING PROTOCOL Performed By: #### L 501.080 ####[facility] [address] [place], [address] FINGERSTICK GLU 179 mg/dL High 74-106 [facility] Comment on above: Result Comment: BRISA GEMENT OF PATIENT CARE PER NURSING PROTOCOL Performed By: #### L 501.080 ####[facility] [address] [place], [address] FINGERSTICK GLU 149 mg/dL High 74-106 [facility] Comment on above: Result Comment: BRISA GEMENT OF PATIENT CARE PER NURSING PROTOCOL Performed By: #### L 501.080 ####[facility] [address] [place], [address] CBC-Complete Blood Cnt No Di ffon 01-31-2025 Erythrocyte distribution width (RBC) [Ratio] 17.7 % High 11.6-14.6 [facility] Comment on above: Performed By: #### L 500.2500, L100.0500 ####[facility] [address] [place], [address] Hematocrit (Bld) [Volume fraction] 23.8 % Low 40-54 [facility] Comment on above: Performed By: #### L 500.2500, L100.0500 ####[facility] [address] [place], [address] Hemoglobin (Bld) [Mass/Vol] 7.9 g/dL Low 13.0-16.5 [facility] Comment on above: Performed By: #### L 500.2500, L100.0500 ####[facility] [address] [place], [address] MCH (RBC) [Entitic mass] 29.8 pg Normal 27.0-32.0 [facility] Comment on above: Performed By: #### L 500.2500, L100.0500 ####[facility] [address] [place], [address] MCHC (RBC) [Mass/Vol] 33.2 g/dL Normal 32-36 [facility] Comment on above: Performed By: #### L 500.2500, L100.0500 ####[facility] [address] [place], [address] MCV (RBC) [Entitic vol] 89.8 fL Normal 80-94 [facility] Comment on above: Performed By: #### L 500.2500, L100.0500 ####[facility] [address] [place], [address] Platelet mean volume (Bld) [Entitic vol] 10.6 fL Normal 6.2-12.0 [facility] Comment on above: Performed By: #### L 500.2500, L100.0500 ####[facility] [address] [place], [address] Platelets (Bld) [#/Vol] 108 10*3/uL Low 150-450 [facility] Comment on above: Performed By: #### L 500.2500, L100.0500 ####[facility] [address] [place], [address] RBC (Bld) [#/Vol] 2.65 10*6/uL Low 4.6-6.2 [facility] Comment on above: Performed By: #### L 500.2500, L100.0500 ####[facility] [address] [place], [address] RDW SD 56.9 fl High 35.1-43.9 [facility] Comment on above: Performed By: #### L 500.2500, L100.0500 ####[facility] [address] [place], [address] WBC (Bld) [#/Vol] 5.9 10*3/uL Normal 4.4-11.0 [facility] Comment on above: Performed By: #### L 500.2500, L100.0500 ####[facility] [address] [place], [address] Carbon dioxide, total [Moles /volume] in Central venous bloodOrdered By: Yaritza Leo on 01-31-2025 CO2 [Moles/Vol] 22.6 mmol/L 21.0-32.0 [facility] Chloride assayOrdered By: Raad Leo on 01-31-2025 Chloride [Moles/Vol] 102 mmol/L 98-108 [facility] Erythrocyte distribution wid th ratioOrdered By: Yaritza Leo on 01-31-2025 Erythrocyte distribution width (RBC) [Ratio] 17.7 % High 11.6-14.6 [facility] Erythrocyte distribution wid th standard deviationOrdered By: Yaritza Leo on 01-31-2025 Erythrocyte distribution width (RBC) [Ratio] 56.9 fl High 35.1-43.9 [facility] Glomerular filtration rate ( GFR) estimation/1.73 sq m using serum, plasma, or whole bOrdered By: Yaritza Leo on 01-31-2025 GFR/1.73 sq M.predicted among non-blacks MDRD (S/P/Bld) [Vol rate/Area] 93 mL/min/{1.73_m2} >60 [facility] deOrdered By: Yaritza Leo on 01-31-2025 Glucose [Mass/Vol] 129 mg/dL High 74-106 [facility] Hematocrit Auto (Bld) [Volum e fraction]Ordered By: Yaritza Leo on 01-31-2025 Hematocrit (Bld) [Volume fraction] 23.8 % Low 40-54 [facility] Hemoglobin measurementOrdere d By: Yaritza Leo on 01-31-2025 Hemoglobin (Bld) [Mass/Vol] 7.9 g/dL Low 13.0-16.5 [facility] MCV (mean corpuscular volume ) determinationOrdered By: Yaritza Leo on 01-31-2025 MCV (RBC) [Entitic vol] 89.8 fL 80-94 [facility] Mean corpuscular hemoglobin (MCH) determinationOrdered By: Yaritza Leo on 01-31-2025 MCH (RBC) [Entitic mass] 29.8 pg 27.0-32.0 [facility] Platelet countOrdered By: Raad Leo on 01-31-2025 Platelets (Bld) [#/Vol] 108 10*3/uL Low 150-450 [facility] Potassium measurement (mass/ volume)Ordered By: Yaritza Leo on 01-31-2025 Potassium (Unsp spec) [Mass/Vol] 3.9 mmol/L 3.3-5.1 [facility] RBC Auto (Bld) [#/Vol]Ordere d By: Yaritza Leo on 01-31-2025 RBC (Bld) [#/Vol] 2.65 10*6/uL Low 4.6-6.2 [facility] Serum creatinine measurement (mass/volume)Ordered By: Yaritza Leo on 01-31-2025 Creatinine [Mass/Vol] 0.95 mg/dL 0.70-1.20 [facility] Serum glucose measurement (m ass/volume)Ordered By: Yaritza Leo on 01-31-2025 Glucose [Mass/Vol] 143 mg/dL High 70-99 [facility] Serum or plasma calcium roosevelt urement (mass/volume)Ordered By: Yaritza Leo on 01-31-2025 Calcium [Mass/Vol] 8.5 mg/dL 7.6-11.0 [facility] Serum or plasma urea nitroge n measurement (mass/volume)Ordered By: Yaritza Leo on 01-31-2025 Urea nitrogen [Mass/Vol] 10 mg/dL 4-19 [facility] Sodium levelOrdered By: Saritha Leo on 01-31-2025 Sodium [Moles/Vol] 133 mmol/L 133-145 [facility] White blood cell (WBC) count Ordered By: Yaritza Leo on 01-31-2025 WBC (Bld) [#/Vol] 5.9 10*3/uL 4.4-11.0 [facility] Absolute lymphocyte countOrd ered By: Yaritza Leo on 01-30-2025 Lymphocytes Auto (Unsp spec) [#/Vol] 1.08 10*3/uL 0.83-4.51 [facility] Automated lymphocyte count a s percentage of total leukocytesOrdered By: Yaritza Leo on 01-30-2025 Lymphocytes/100 WBC Auto (Unsp spec) 20.0 % 19-41 [facility] Basic Metabolic Profile (BMP )on 01-30-2025 BUN/CRE 10.1 RATIO Normal 10-20 [facility] Comment on above: Performed By: #### L 501.5200, L501.2300, L500.2500, L100.0100 ####[facility] [address] [place], [address] Calcium [Mass/Vol] 8.4 mg/dL Normal 7.6-11.0 [facility] Comment on above: Performed By: #### L 501.5200, L501.2300, L500.2500, L100.0100 ####[facility] [address] [place], [address] Chloride [Moles/Vol] 101 mmol/L Normal 98-108 [facility] Comment on above: Performed By: #### L 501.5200, L501.2300, L500.2500, L100.0100 ####[facility] [address] [place], [address] CO2 [Moles/Vol] 17.3 mmol/L Low 21.0-32.0 [facility] Comment on above: Performed By: #### L 501.5200, L501.2300, L500.2500, L100.0100 ####[facility] [address] [place], [address] Creatinine [Mass/Vol] 0.93 mg/dL Normal 0.70-1.20 [facility] Comment on above: Performed By: #### L 501.5200, L501.2300, L500.2500, L100.0100 ####[facility] [address] [place], [address] ECRCL 111.05 ml/min Normal 50-250 [facility] Comment on above: Performed By: #### L 501.5200, L501.2300, L500.2500, L100.0100 ####[facility] [address] [place], [address] GAP 13 Normal 5-15 [facility] Comment on above: Performed By: #### L 501.5200, L501.2300, L500.2500, L100.0100 ####[facility] [address] [place], [address] GFR/1.73 sq M.predicted among non-blacks MDRD (S/P/Bld) [Vol rate/Area] 95 mL/min/{1.73_m2} Normal >60 [facility] Comment on above: Result Comment: mL/m in/1.73m2 CKD-EPI Creatinine Equation (2020) Performed By: #### L 501.5200, L501.2300, L500.2500, L100.0100 ####[facility] [address] [place], [address] Glucose [Mass/Vol] 139 mg/dL High 70-99 [facility] Comment on above: Performed By: #### L 501.5200, L501.2300, L500.2500, L100.0100 ####[facility] [address] [place], [address] Potassium [Moles/Vol] 3.5 mmol/L Normal 3.3-5.1 [facility] Comment on above: Result Comment: Hemo lysis present, Results??could be affected.?? Performed By: #### L 501.5200, L501.2300, L500.2500, L100.0100 ####[facility] [address] [place], [address] Sodium [Moles/Vol] 131 mmol/L Low 133-145 [facility] Comment on above: Performed By: #### L 501.5200, L501.2300, L500.2500, L100.0100 ####[facility] [address] [place], [address] Urea nitrogen [Mass/Vol] 9 mg/dL Normal 4-19 [facility] Comment on above: Performed By: #### L 501.5200, L501.2300, L500.2500, L100.0100 ####[facility] [address] [place], [address] Basophil percentageOrdered B y: Yaritza Ahmet on 01-30-2025 Basophils/100 WBC (Bld) 0.7 % Normal 0-1 [facility] Comment on above: Performed By: #### L 501.5200, L501.2300, L500.2500, L100.0100 ####[facility] [address] [place], [address] Bedside Glucoseon 01-30-2025 FINGERSTICK GLU 170 mg/dL High 74-106 [facility] Comment on above: Result Comment: BRISA MOROCHO OF PATIENT CARE PER NURSING PROTOCOL Performed By: #### L 501.080 ####[facility] [address] [place], [address] FINGERSTICK GLU 122 mg/dL High 74-106 [facility] Comment on above: Result Comment: BRISA GEMENT OF PATIENT CARE PER NURSING PROTOCOL Performed By: #### L 501.080 ####[facility] [address] [place], [address] FINGERSTICK GLU 119 mg/dL High 74-106 [facility] Comment on above: Result Comment: BRISA GEMENT OF PATIENT CARE PER NURSING PROTOCOL Performed By: #### L 501.080 ####[facility] [address] [place], [address] FINGERSTICK GLU 116 mg/dL High 74-106 [facility] Comment on above: Result Comment: BRISA GEMENT OF PATIENT CARE PER NURSING PROTOCOL Performed By: #### L 501.080 ####[facility] [address] [place], [address] CBC W/Diff, Automatedon 01-03 Absolute Lymph 1.08 X10 3/uL Normal 0.83-4.51 [facility] Comment on above: Performed By: #### L 501.5200, L501.2300, L500.2500, L100.0100 ####[facility] [address] [place], [address] Absolute Neut 2.9 X10 3/uL Normal 2.0-7.7 [facility] Comment on above: Performed By: #### L 501.5200, L501.2300, L500.2500, L100.0100 ####[facility] [address] [place], [address] Erythrocyte distribution width (RBC) [Ratio] 18.1 % High 11.6-14.6 [facility] Comment on above: Performed By: #### L 501.5200, L501.2300, L500.2500, L100.0100 ####[facility] [address] [place], [address] Hematocrit (Bld) [Volume fraction] 24.1 % Low 40-54 [facility] Comment on above: Performed By: #### L 501.5200, L501.2300, L500.2500, L100.0100 ####[facility] [address] [place], [address] Hemoglobin (Bld) [Mass/Vol] 7.7 g/dL Low 13.0-16.5 [facility] Comment on above: Performed By: #### L 501.5200, L501.2300, L500.2500, L100.0100 ####[facility] [address] [place], [address] IG% 0.600 Normal 0.0-0.9 [facility] Comment on above: Result Comment: IG% - Immature Granulocytes (promyelocytes, myelocytes andmetamyelocytes) > 1% indicates that a LEFT SHIFT is Present. Performed By: #### L 501.5200, L501.2300, L500.2500, L100.0100 ####[facility] [address] [place], [address] Lymphocytes/100 WBC (Bld) 20.0 % Normal 19-41 [facility] Comment on above: Performed By: #### L 501.5200, L501.2300, L500.2500, L100.0100 ####[facility] [address] [place], [address] MCH (RBC) [Entitic mass] 29.2 pg Normal 27.0-32.0 [facility] Comment on above: Performed By: #### L 501.5200, L501.2300, L500.2500, L100.0100 ####[facility] [address] [place], [address] MCHC (RBC) [Mass/Vol] 32.0 g/dL Normal 32-36 [facility] Comment on above: Performed By: #### L 501.5200, L501.2300, L500.2500, L100.0100 ####[facility] [address] [place], [address] MCV (RBC) [Entitic vol] 91.3 fL Normal 80-94 [facility] Comment on above: Performed By: #### L 501.5200, L501.2300, L500.2500, L100.0100 ####[facility] [address] [place], [address] Nucleated RBC (Bld) [#/Vol] 0 10*3/uL Normal 0-5 [facility] Comment on above: Performed By: #### L 501.5200, L501.2300, L500.2500, L100.0100 ####[facility] [address] [place], [address] Platelet mean volume (Bld) [Entitic vol] 10.5 fL Normal 6.2-12.0 [facility] Comment on above: Performed By: #### L 501.5200, L501.2300, L500.2500, L100.0100 ####[facility] [address] [place], [address] Platelets (Bld) [#/Vol] 108 10*3/uL Low 150-450 [facility] Comment on above: Performed By: #### L 501.5200, L501.2300, L500.2500, L100.0100 ####[facility] [address] [place], [address] RBC (Bld) [#/Vol] 2.64 10*6/uL Low 4.6-6.2 [facility] Comment on above: Performed By: #### L 501.5200, L501.2300, L500.2500, L100.0100 ####[facility] [address] [place], [address] RDW SD 61.1 fl High 35.1-43.9 [facility] Comment on above: Performed By: #### L 501.5200, L501.2300, L500.2500, L100.0100 ####[facility] [address] [place], [address] WBC (Bld) [#/Vol] 5.4 10*3/uL Normal 4.4-11.0 [facility] Comment on above: Performed By: #### L 501.5200, L501.2300, L500.2500, L100.0100 ####[facility] [address] [place], [address] Eosinophil percentageOrdered By: Yaritza Leo on 01-30-2025 Eosinophils/100 WBC (Bld) 7.0 % High 0-5 [facility] Comment on above: Performed By: #### L 501.5200, L501.2300, L500.2500, L100.0100 ####[facility] [address] [place], [address] Immature granulocytes/100 WB C Auto (Bld)Ordered By: Yaritza Leo on 01-30-2025 Immature granulocytes/100 WBC (Bld) 0.600 % 0.0-0.9 [facility] Magnesiumon 01-30-2025 Magnesium [Mass/Vol] 1.7 mg/dL Normal 1.5-2.2 [facility] Comment on above: Performed By: #### L 501.5200, L501.2300, L500.2500, L100.0100 ####[facility] [address] [place], [address] Magnesium measurement (mass/ volume)Ordered By: Yaritza Leo on 01-30-2025 Magnesium (Unsp spec) [Mass/Vol] 1.7 mg/dL 1.5-2.2 [facility] Monocyte percentageOrdered B y: Yaritza Leo on 01-30-2025 Monocytes/100 WBC (Bld) 18.5 % High 0-10 [facility] Comment on above: Performed By: #### L 501.5200, L501.2300, L500.2500, L100.0100 ####[facility] [address] [place], [place], [id number] Neutrophil percentageOrdered By: Yaritza Leo on 01-30-2025 Neutrophils/100 WBC (Bld) 53.2 % Normal 47-70 [facility] Comment on above: Performed By: #### L 501.5200, L501.2300, L500.2500, L100.0100 ####[facility] [address] [place], [address] Phosphoruson 01-30-2025 Phosphate [Mass/Vol] 2.7 mg/dL Normal 2.7-4.5 [facility] Comment on above: Performed By: #### L 501.5200, L501.2300, L500.2500, L100.0100 ####[facility] [address] [place], [address] Urine Cultureon 01-30-2025 URC Normal [facility] Comment on above: Performed By: #### M 100.2200 ####[facility] [address] [place], [address] Bedside Glucoseon 01-29-2025 FINGERSTICK GLU 174 mg/dL High 74-106 [facility] Comment on above: Result Comment: BRISA GEMENT OF PATIENT CARE PER NURSING PROTOCOL Performed By: #### L 501.080 ####[facility] [address] [place], [address] FINGERSTICK GLU 163 mg/dL High 74-106 [facility] Comment on above: Result Comment: BRISA GEMENT OF PATIENT CARE PER NURSING PROTOCOL Performed By: #### L 501.080 ####[facility] [address] [place], [address] FINGERSTICK GLU 196 mg/dL High 74-106 [facility] Comment on above: Result Comment: BRISA GEMENT OF PATIENT CARE PER NURSING PROTOCOL Performed By: #### L 501.080 ####[facility] [address] [place], [address] FINGERSTICK GLU 237 mg/dL High 74-106 [facility] Comment on above: Result Comment: BRISA GEMENT OF PATIENT CARE PER NURSING PROTOCOL Performed By: #### L 501.080 ####[facility] [address] [place], [address] FINGERSTICK GLU 172 mg/dL High 74-106 [facility] Comment on above: Result Comment: BRISA GEMENT OF PATIENT CARE PER NURSING PROTOCOL Performed By: #### L 501.080 ####[facility] [address] [place], [address] Bilirubin, totalOrdered By: Boone Izquierdo on 01-29-2025 Bilirubin [Mass/Vol] 1.81 mg/dL High 0.00-1.30 [facility] CBC W/Diff, Automatedon 01-03 Absolute Lymph 0.83 X10 3/uL Normal 0.83-4.51 [facility] Comment on above: Performed By: #### L 100.0100, L500.4050 ####[facility] [address] [place], [address] Absolute Neut 3.0 X10 3/uL Normal 2.0-7.7 [facility] Comment on above: Performed By: #### L 100.0100, L500.4050 ####[facility] [address] [place], [address] Basophils/100 WBC (Bld) 0.8 % Normal 0-1 [facility] Comment on above: Performed By: #### L 100.0100, L500.4050 ####[facility] [address] [place], [address] Eosinophils/100 WBC (Bld) 5.3 % High 0-5 [facility] Comment on above: Performed By: #### L 100.0100, L500.4050 ####[facility] [address] [place], [address] Erythrocyte distribution width (RBC) [Ratio] 18.4 % High 11.6-14.6 [facility] Comment on above: Performed By: #### L 100.0100, L500.4050 ####[facility] [address] [place], [address] Hematocrit (Bld) [Volume fraction] 24.8 % Low 40-54 [facility] Comment on above: Performed By: #### L 100.0100, L500.4050 ####[facility] [address] [place], [address] Hemoglobin (Bld) [Mass/Vol] 8.1 g/dL Low 13.0-16.5 [facility] Comment on above: Performed By: #### L 100.0100, L500.4050 ####[facility] [address] [place], [address] IG% 0.800 Normal 0.0-0.9 [facility] Comment on above: Result Comment: IG% - Immature Granulocytes (promyelocytes, myelocytes andmetamyelocytes) > 1% indicates that a LEFT SHIFT is Present. Performed By: #### L 100.0100, L500.4050 ####[facility] [address] [place], [address] Lymphocytes/100 WBC (Bld) 17.1 % Low 19-41 [facility] Comment on above: Performed By: #### L 100.0100, L500.4050 ####[facility] [address] [place], [address] MCH (RBC) [Entitic mass] 29.6 pg Normal 27.0-32.0 [facility] Comment on above: Performed By: #### L 100.0100, L500.4050 ####[facility] [address] [place], [address] MCHC (RBC) [Mass/Vol] 32.7 g/dL Normal 32-36 [facility] Comment on above: Performed By: #### L 100.0100, L500.4050 ####[facility] [address] [place], [address] MCV (RBC) [Entitic vol] 90.5 fL Normal 80-94 [facility] Comment on above: Performed By: #### L 100.0100, L500.4050 ####[facility] [address] [place], [address] Monocytes/100 WBC (Bld) 15.2 % High 0-10 [facility] Comment on above: Performed By: #### L 100.0100, L500.4050 ####[facility] [address] [place], [address] Neutrophils/100 WBC (Bld) 60.8 % Normal 47-70 [facility] Comment on above: Performed By: #### L 100.0100, L500.4050 ####[facility] [address] [place], [address] Nucleated RBC (Bld) [#/Vol] 0 10*3/uL Normal 0-5 [facility] Comment on above: Performed By: #### L 100.0100, L500.4050 ####[facility] [address] [place], [address] Platelet mean volume (Bld) [Entitic vol] 11.6 fL Normal 6.2-12.0 [facility] Comment on above: Performed By: #### L 100.0100, L500.4050 ####[facility] [address] [place], [address] Platelets (Bld) [#/Vol] 120 10*3/uL Low 150-450 [facility] Comment on above: Performed By: #### L 100.0100, L500.4050 ####[facility] [address] [place], [address] RBC (Bld) [#/Vol] 2.74 10*6/uL Low 4.6-6.2 [facility] Comment on above: Performed By: #### L 100.0100, L500.4050 ####[facility] [address] [place], [address] RDW SD 60.7 fl High 35.1-43.9 [facility] Comment on above: Performed By: #### L 100.0100, L500.4050 ####[facility] [address] [place], [address] WBC (Bld) [#/Vol] 4.9 10*3/uL Normal 4.4-11.0 [facility] Comment on above: Performed By: #### L 100.0100, L500.4050 ####[facility] [address] [place], [address] Comprehensive Metabolic Prof [facility] 01-29-2025 Albumin [Mass/Vol] 2.3 g/dL Low 3.5-5.0 [facility] Comment on above: Performed By: #### L 100.0100, L500.4050 ####[facility] [address] [place], [address] Albumin/Globulin [Mass ratio] 0.8 {ratio} Low 0.9-2.4 [facility] Comment on above: Performed By: #### L 100.0100, L500.4050 ####[facility] [address] [place], [address] ALK PHOS 180 U/L High 40-129 [facility] Comment on above: Performed By: #### L 100.0100, L500.4050 ####[facility] [address] [place], [address] ALT [Catalytic activity/Vol] 30 U/L Normal <=46 [facility] Comment on above: Performed By: #### L 100.0100, L500.4050 ####[facility] [address] [place], [address] AST [Catalytic activity/Vol] 52 U/L High <=37 [facility] Comment on above: Performed By: #### L 100.0100, L500.4050 ####[facility] [address] [place], [address] Bilirubin [Mass/Vol] 1.81 mg/dL High 0.00-1.30 [facility] Comment on above: Performed By: #### L 100.0100, L500.4050 ####[facility] [address] [place], [address] BUN/CRE 11.6 RATIO Normal 10-20 [facility] Comment on above: Performed By: #### L 100.0100, L500.4050 ####[facility] [address] [place], [address] Calcium [Mass/Vol] 8.8 mg/dL Normal 7.6-11.0 [facility] Comment on above: Performed By: #### L 100.0100, L500.4050 ####[facility] [address] [place], [address] Chloride [Moles/Vol] 100 mmol/L Normal 98-108 [facility] Comment on above: Performed By: #### L 100.0100, L500.4050 ####[facility] [address] [place], [address] CO2 [Moles/Vol] 19.5 mmol/L Low 21.0-32.0 [facility] Comment on above: Performed By: #### L 100.0100, L500.4050 ####[facility] [address] [place], [address] Creatinine [Mass/Vol] 1.09 mg/dL Normal 0.70-1.20 [facility] Comment on above: Performed By: #### L 100.0100, L500.4050 ####[facility] [address] [place], [address] ECRCL 94.75 ml/min Normal 50-250 [facility] Comment on above: Performed By: #### L 100.0100, L500.4050 ####[facility] [address] [place], [address] GAP 14 Normal 5-15 [facility] Comment on above: Performed By: #### L 100.0100, L500.4050 ####[facility] [address] [place], [address] GFR/1.73 sq M.predicted among non-blacks MDRD (S/P/Bld) [Vol rate/Area] 79 mL/min/{1.73_m2} Normal >60 [facility] Comment on above: Result Comment: mL/m in/1.73m2 CKD-EPI Creatinine Equation (2020) Performed By: #### L 100.0100, L500.4050 ####[facility] [address] [place], [address] Globulin (S) [Mass/Vol] 3.1 g/dL Normal 2.2-4.2 [facility] Comment on above: Performed By: #### L 100.0100, L500.4050 ####[facility] [address] [place], [address] Glucose [Mass/Vol] 265 mg/dL High 70-99 [facility] Comment on above: Performed By: #### L 100.0100, L500.4050 ####[facility] [address] [place], [address] Potassium [Moles/Vol] 3.5 mmol/L Normal 3.3-5.1 [facility] Comment on above: Performed By: #### L 100.0100, L500.4050 ####[facility] [address] [place], [address] Sodium [Moles/Vol] 133 mmol/L Normal 133-145 [facility] Comment on above: Performed By: #### L 100.0100, L500.4050 ####[facility] [address] [place], [address] T PROT 5.4 g/dL Low 5.9-8.4 [facility] Comment on above: Performed By: #### L 100.0100, L500.4050 ####[facility] [address] [place], [address] Urea nitrogen [Mass/Vol] 13 mg/dL Normal 4-19 [facility] Comment on above: Performed By: #### L 100.0100, L500.4050 ####[facility] [address] [place], [address] No Panel InformationOrdered By: Boone Izquierdo on 01-29-2025 52 U/L High <38 [facility] Serum globulin measurementOr dered By: Boone Izquierdo on 01-29-2025 Globulin (S) [Mass/Vol] 3.1 g/dL 2.2-4.2 [facility] Serum or plasma alanine thomas otransferase (ALT) measurementOrdered By: Boone Izquierdo on 01-29-2025 ALT [Catalytic activity/Vol] 30 U/L <47 [facility] Serum or plasma albumin roosevelt urement (mass/volume)Ordered By: Boone Izquierdo on 01-29-2025 Albumin [Mass/Vol] 2.3 g/dL Low 3.5-5.0 [facility] Serum or plasma albumin/glob ulin mass ratioOrdered By: Boone Izquierdo on 01-29-2025 Albumin/Globulin [Mass ratio] 0.8 {ratio} Low 0.9-2.4 [facility] Serum or plasma alkaline kendrick sphatase measurementOrdered By: Boone Izquierdo on 01-29-2025 ALP [Catalytic activity/Vol] 180 U/L High 40-129 [facility] Total proteinOrdered By: Juanita Izquierdo on 01-29-2025 Protein [Mass/Vol] 5.4 g/dL Low 5.9-8.4 [facility] Abdomen/Pelvis W IV Cont ONL Yon 01-28-2025 Abdomen/Pelvis W IV Cont ONLY Normal [facility] Absolute lymphocyte countOrd ered By: Danny Hutton on 01-28-2025 Lymphocytes Auto (Unsp spec) [#/Vol] 0.98 10*3/uL 0.83-4.51 [facility] Activated partial thrombopla stin time (aPTT) in platelet poor plasma by coagulation aOrdered By: Danny Hutton on 01-28-2025 aPTT Coag (PPP) [Time] 38.4 s High 24.1-36.2 [facility] Ammoniaon 01-28-2025 Ammonia (P) [Moles/Vol] 108.0 umol/L High 16-60 [facility] Comment on above: Order Comment: REDRA W. PREVIOUS SPECIMEN REJECTED DUE TOHEMOLYSIS. 01/28/25 0[address]. Performed By: #### L 503.5510 ####[facility] [address] [place], [address] Anion gap in Serum or Plasma Ordered By: Danny Hutton on 01-28-2025 Anion gap [Moles/Vol] 14 mmol/L 5-15 [facility] Automated lymphocyte count a s percentage of total leukocytesOrdered By: Danny Hutton on 01-28-2025 Lymphocytes/100 WBC Auto (Unsp spec) 18.8 % Low 19-41 [facility] BUN/creatinine ratioOrdered By: Danny Hutton on 01-28-2025 Urea nitrogen/Creatinine [Mass ratio] 12.8 mg/mg 10-20 [facility] Basic Metabolic Profile (BMP )on 01-28-2025 CO2 [Moles/Vol] 22.1 mmol/L Normal 21.0-32.0 [facility] Comment on above: Performed By: #### L 500.3400, L503.6005, L300.3900, L500.2500, L501.2450, L501.5200, L300.4310, L501.4021, L100.0100, L503.7505 ####[facility] [address] [place], [place], [phone] GAP 14 Normal 5-15 [facility] Comment on above: Performed By: #### L 500.3400, L503.6005, L300.3900, L500.2500, L501.2450, L501.5200, L300.4310, L501.4021, L100.0100, L503.7505 ####[facility] [address] [place], [place], [id number] Basophil percentageOrdered B y: Danny Hutton on 01-28-2025 Basophils/100 WBC (Bld) 0.8 % 0-1 [facility] Bedside Glucoseon 01-28-2025 FINGERSTICK GLU 102 mg/dL Normal 74-106 [facility] Comment on above: Result Comment: BRISA GEMENT OF PATIENT CARE PER NURSING PROTOCOL Performed By: #### L 501.080 ####[facility] [address] [place], [place], [id number] FINGERSTICK GLU 96 mg/dL Normal 74-106 [facility] Comment on above: Result Comment: BRISA GEMENT OF PATIENT CARE PER NURSING PROTOCOL Performed By: #### L 501.080 ####[facility] [address] [place], [place], [address] Bilirubin Test strip Ql (U)O rdered By: Danny Hutton on 01-28-2025 Bilirubin Ql (U) Negative Negative [facility] Bilirubin directOrdered By: Danny Hutton on 01-28-2025 Bilirubin.direct [Mass/Vol] 1.04 mg/dL High 0.00-0.30 [facility] Bilirubin, totalOrdered By: Danny [facility] on 01-28-2025 Bilirubin [Mass/Vol] 1.91 mg/dL High 0.00-1.30 [facility] Blood cultureOrdered By: Silvano jersey ChandraOrly on 01-28-2025 Bacteria identified Cx Nom (Bld) No growth in 5 days. [facility] Bacteria identified Cx Nom (Bld) No growth in 5 days. [facility] CBC W/Diff, Automatedon 01-03 Absolute Lymph 0.98 X10 3/uL Normal 0.83-4.51 [facility] Comment on above: Performed By: #### L 500.3400, L503.6005, L300.3900, L500.2500, L501.2450, L501.5200, L300.4310, L501.4021, L100.0100, L503.7505 ####[facility] [address] [place], [place], [id number] Absolute Neut 3.0 X10 3/uL Normal 2.0-7.7 [facility] Comment on above: Performed By: #### L 500.3400, L503.6005, L300.3900, L500.2500, L501.2450, L501.5200, L300.4310, L501.4021, L100.0100, L503.7505 ####[facility] [address] [place], [address] Basophils/100 WBC (Bld) 0.8 % Normal 0-1 [facility] Comment on above: Performed By: #### L 500.3400, L503.6005, L300.3900, L500.2500, L501.2450, L501.5200, L300.4310, L501.4021, L100.0100, L503.7505 ####[facility] [address] [place], [place], [phone] Eosinophils/100 WBC (Bld) 4.6 % Normal 0-5 [facility] Comment on above: Performed By: #### L 500.3400, L503.6005, L300.3900, L500.2500, L501.2450, L501.5200, L300.4310, L501.4021, L100.0100, L503.7505 ####[facility] [address] [place], [phone]) Erythrocyte distribution width (RBC) [Ratio] 18.4 % High 11.6-14.6 [facility] Comment on above: Performed By: #### L 500.3400, L503.6005, L300.3900, L500.2500, L501.2450, L501.5200, L300.4310, L501.4021, L100.0100, L503.7505 ####[facility] [address] [place], [address]([phone]) Hematocrit (Bld) [Volume fraction] 25.2 % Low 40-54 [facility] Comment on above: Performed By: #### L 500.3400, L503.6005, L300.3900, L500.2500, L501.2450, L501.5200, L300.4310, L501.4021, L100.0100, L503.7505 ####[facility] [address] [place], [place], [phone]) Hemoglobin (Bld) [Mass/Vol] 8.3 g/dL Low 13.0-16.5 [facility] Comment on above: Performed By: #### L 500.3400, L503.6005, L300.3900, L500.2500, L501.2450, L501.5200, L300.4310, L501.4021, L100.0100, L503.7505 ####[facility] [address] [place], [address] IG% 1.300 High 0.0-0.9 [facility] Comment on above: Result Comment: IG% - Immature Granulocytes (promyelocytes, myelocytes andmetamyelocytes) > 1% indicates that a LEFT SHIFT is Present. Performed By: #### L 500.3400, L503.6005, L300.3900, L500.2500, L501.2450, L501.5200, L300.4310, L501.4021, L100.0100, L503.7505 ####[facility] [address] [place], [place], [phone] Lymphocytes/100 WBC (Bld) 18.8 % Low 19-41 [facility] Comment on above: Performed By: #### L 500.3400, L503.6005, L300.3900, L500.2500, L501.2450, L501.5200, L300.4310, L501.4021, L100.0100, L503.7505 ####[facility] [address] [place], [address] MCH (RBC) [Entitic mass] 29.4 pg Normal 27.0-32.0 [facility] Comment on above: Performed By: #### L 500.3400, L503.6005, L300.3900, L500.2500, L501.2450, L501.5200, L300.4310, L501.4021, L100.0100, L503.7505 ####[facility] [address] [place], [address] MCHC (RBC) [Mass/Vol] 32.9 g/dL Normal 32-36 [facility] Comment on above: Performed By: #### L 500.3400, L503.6005, L300.3900, L500.2500, L501.2450, L501.5200, L300.4310, L501.4021, L100.0100, L503.7505 ####[facility] [address] [place], [address] MCV (RBC) [Entitic vol] 89.4 fL Normal 80-94 [facility] Comment on above: Performed By: #### L 500.3400, L503.6005, L300.3900, L500.2500, L501.2450, L501.5200, L300.4310, L501.4021, L100.0100, L503.7505 ####[facility] [address] [place], [address] Monocytes/100 WBC (Bld) 16.7 % High 0-10 [facility] Comment on above: Performed By: #### L 500.3400, L503.6005, L300.3900, L500.2500, L501.2450, L501.5200, L300.4310, L501.4021, L100.0100, L503.7505 ####[facility] [address] [place], [address] Neutrophils/100 WBC (Bld) 57.8 % Normal 47-70 [facility] Comment on above: Performed By: #### L 500.3400, L503.6005, L300.3900, L500.2500, L501.2450, L501.5200, L300.4310, L501.4021, L100.0100, L503.7505 ####[facility] [address] [place], [address] Nucleated RBC (Bld) [#/Vol] 0 10*3/uL Normal 0-5 [facility] Comment on above: Performed By: #### L 500.3400, L503.6005, L300.3900, L500.2500, L501.2450, L501.5200, L300.4310, L501.4021, L100.0100, L503.7505 ####[facility] [address] [place], [address] Platelet mean volume (Bld) [Entitic vol] 11.5 fL Normal 6.2-12.0 [facility] Comment on above: Performed By: #### L 500.3400, L503.6005, L300.3900, L500.2500, L501.2450, L501.5200, L300.4310, L501.4021, L100.0100, L503.7505 ####[facility] [address] [place], [place], [phone] Platelets (Bld) [#/Vol] 115 10*3/uL Low 150-450 [facility] Comment on above: Performed By: #### L 500.3400, L503.6005, L300.3900, L500.2500, L501.2450, L501.5200, L300.4310, L501.4021, L100.0100, L503.7505 ####[facility] [address] [place], [place], [phone]41) RBC (Bld) [#/Vol] 2.82 10*6/uL Low 4.6-6.2 [facility] Comment on above: Performed By: #### L 500.3400, L503.6005, L300.3900, L500.2500, L501.2450, L501.5200, L300.4310, L501.4021, L100.0100, L503.7505 ####[facility] [address] [place], [place], [phone] RDW SD 60.7 fl High 35.1-43.9 [facility] Comment on above: Performed By: #### L 500.3400, L503.6005, L300.3900, L500.2500, L501.2450, L501.5200, L300.4310, L501.4021, L100.0100, L503.7505 ####[facility] [address] [place], [place], [phone] WBC (Bld) [#/Vol] 5.2 10*3/uL Normal 4.4-11.0 [facility] Comment on above: Performed By: #### L 500.3400, L503.6005, L300.3900, L500.2500, L501.2450, L501.5200, L300.4310, L501.4021, L100.0100, L503.7505 ####[facility] [address] [place], [place], [phone] Carbon dioxide, total [Moles /volume] in Central venous bloodOrdered By: Danny Hutton on 01-28-2025 CO2 [Moles/Vol] 22.1 mmol/L 21.0-32.0 [facility] Chest PA and Lateralon 01-28 Chest PA and Lateral Normal [facility] Chloride assayOrdered By: Darin Hutton on 01-28-2025 Chloride [Moles/Vol] 95 mmol/L Low 98-108 [facility] Emergency Department Summary on 01-28-2025 Emergency Department Summary Normal [facility] Eosinophil percentageOrdered By: Danny Hutton on 01-28-2025 Eosinophils/100 WBC (Bld) 4.6 % 0-5 [facility] Erythrocyte distribution wid th ratioOrdered By: Danny Hutton on 01-28-2025 Erythrocyte distribution width (RBC) [Ratio] 18.4 % High 11.6-14.6 [facility] Erythrocyte distribution wid th standard deviationOrdered By: Danny Barker on 01-28-2025 Erythrocyte distribution width (RBC) [Ratio] 60.7 fl High 35.1-43.9 [facility] Glomerular filtration rate ( GFR) estimation/1.73 sq m using serum, plasma, or whole bOrdered By: Danny Hutton on 01-28-2025 GFR/1.73 sq M.predicted among non-blacks MDRD (S/P/Bld) [Vol rate/Area] 73 mL/min/{1.73_m2} >60 [facility] H AND P Exam - Hospitaliston 01-28-2025 H&P Exam - Hospitalist Normal [facility] Hematocrit Auto (Bld) [Volum e fraction]Ordered By: [facility] on 01-28-2025 Hematocrit (Bld) [Volume fraction] 25.2 % Low 40-54 [facility] Hemoglobin measurementOrdere d By: [facility]uk[facility] on 01-28-2025 Hemoglobin (Bld) [Mass/Vol] 8.3 g/dL Low 13.0-16.5 [facility] Immature granulocytes/100 WB C Auto (Bld)Ordered By: [facility] on 01-28-2025 Immature granulocytes/100 WBC (Bld) 1.300 % High 0.0-0.9 [facility] Influenza virus A and B and SARS-CoV-2 (COVID-19) and Respiratory syncytial virus RNAOrdered By: [facility]rian[facility]uk[facility]zLuc[facility] on 01-28-2025 SARS-CoV-2 (COVID-19) RNA ANANTH+probe Ql (Unsp spec) [facility] Ketones Test strip Ql (U)Ord ered By: [facility] on 01-28-2025 Ketones Ql (U) Negative Negative [facility] [id number] 01-28-2025 Trop T High Sen Normal <=22 [facility] Comment on above: Result Comment: Devonte goodwin via OM: Ordered Performed By: #### L 499.0042 ####[facility] [id number] [place], [address] [id number] 01-28-2025 Trop T High Sen 13 ng/L Normal <=22 [facility] Comment on above: Performed By: #### L 500.3400, L503.6005, L300.3900, L500.2500, L501.2450, L501.5200, L300.4310, L501.4021, L100.0100, L503.7505 ####[facility] [address] [place], [address] L503.7505on 01-28-2025 Natriuretic peptide B (Bld) [Mass/Vol] 140 pg/mL Normal <=900 [facility] Comment on above: Result Comment: Hear t Failure Unlikely: < 300 pg/mLHeart Failure Likely< 50 Years: > 450 pg/mL50-75 Years: > 900 pg/mL>75 Years: > 1800 pg/mL Performed By: #### L 500.3400, L503.6005, L300.3900, L500.2500, L501.2450, L501.5200, L300.4310, L501.4021, L100.0100, L503.7505 ####[facility] [address] [place], [place], [id number] Lactic Acidon 01-28-2025 Lactate [Moles/Vol] 2.8 mmol/L Invalid Interpretation Code 0.0-2.0 [facility] Comment on above: Result Comment: Crit ical Result(s) Called at: 01/28/2025-09:07 by: Jennifer Marsh.??Results read back by same. Performed By: #### L 503.6005 ####[facility] [address] [place], [place], [id number] Lactate [Moles/Vol] 3.4 mmol/L Invalid Interpretation Code 0.0-2.0 [facility] Comment on above: Order Comment: Y Result Comment: Crit ical Result(s) Called at: 01/28/2025-04:24 by: JamesWhite to Arianna Sparr.??Results read back by same. Performed By: #### L 500.3400, L503.6005, L300.3900, L500.2500, L501.2450, L501.5200, L300.4310, L501.4021, L100.0100, L503.7505 ####[facility] [address] [place], [place], [id number] Lipaseon 01-28-2025 Lipase [Catalytic activity/Vol] 33 U/L Normal 13-75 [facility] Comment on above: Result Comment: Siddhartha bhat note:LIPASE revised reference range effective 22.New Lipase methodology. Expected to produce lower valuesthan the previous assay method.NEW Reference Range: 13 - 75 U/L Performed By: #### L 500.3400, L503.6005, L300.3900, L500.2500, L501.2450, L501.5200, L300.4310, L501.4021, L100.0100, L503.7505 ####[facility] [address] [place], [place], [id number] Liver Profileon 01-28-2025 Albumin [Mass/Vol] 2.5 g/dL Low 3.5-5.0 [facility] Comment on above: Performed By: #### L 500.3400, L503.6005, L300.3900, L500.2500, L501.2450, L501.5200, L300.4310, L501.4021, L100.0100, L503.7505 ####[facility] [address] [place], [place], [id number] ALK PHOS 201 U/L High 40-129 [facility] Comment on above: Performed By: #### L 500.3400, L503.6005, L300.3900, L500.2500, L501.2450, L501.5200, L300.4310, L501.4021, L100.0100, L503.7505 ####[facility] [address] [place], [address] ALT [Catalytic activity/Vol] 31 U/L Normal <=46 [facility] Comment on above: Performed By: #### L 500.3400, L503.6005, L300.3900, L500.2500, L501.2450, L501.5200, L300.4310, L501.4021, L100.0100, L503.7505 ####[facility] [address] [place], [address] AST [Catalytic activity/Vol] 58 U/L High <=37 [facility] Comment on above: Performed By: #### L 500.3400, L503.6005, L300.3900, L500.2500, L501.2450, L501.5200, L300.4310, L501.4021, L100.0100, L503.7505 ####[facility] [address] [place], [place], [id number] Bilirubin [Mass/Vol] 1.91 mg/dL High 0.00-1.30 [facility] Comment on above: Performed By: #### L 500.3400, L503.6005, L300.3900, L500.2500, L501.2450, L501.5200, L300.4310, L501.4021, L100.0100, L503.7505 ####[facility] [address] [place], [place], [id number] Bilirubin.direct [Mass/Vol] 1.04 mg/dL High 0.00-0.30 [facility] Comment on above: Performed By: #### L 500.3400, L503.6005, L300.3900, L500.2500, L501.2450, L501.5200, L300.4310, L501.4021, L100.0100, L503.7505 ####[facility] [address] [place], [address] Globulin (S) [Mass/Vol] 3.3 g/dL Normal 2.2-4.2 [facility] Comment on above: Performed By: #### L 500.3400, L503.6005, L300.3900, L500.2500, L501.2450, L501.5200, L300.4310, L501.4021, L100.0100, L503.7505 ####[facility] [address] [place], [address] T PROT 5.9 g/dL Normal 5.9-8.4 [facility] Comment on above: Performed By: #### L 500.3400, L503.6005, L300.3900, L500.2500, L501.2450, L501.5200, L300.4310, L501.4021, L100.0100, L503.7505 ####[facility] [address] [facility] [place], [address] M100.678on 01-28-2025 M100.678 SARS-CoV-2 (COVID 19 ) Negative INFLUENZA A Negative INFLUENZA B Negative RSV PCR Negative Normal [facility] Comment on above: Performed By: #### M 100.678 ####[facility] [address] [place], [address] MCV (mean corpuscular volume ) determinationOrdered By: Danny Hutton on 01-28-2025 MCV (RBC) [Entitic vol] 89.4 fL 80-94 [facility] Magnesiumon 01-28-2025 Magnesium [Mass/Vol] 1.7 mg/dL Normal 1.5-2.2 [facility] Comment on above: Performed By: #### L 500.3400, L503.6005, L300.3900, L500.2500, L501.2450, L501.5200, L300.4310, L501.4021, L100.0100, L503.7505 ####[facility] [address] [place], [address] Magnesium measurement (mass/ volume)Ordered By: Danny Hutton on 01-28-2025 Magnesium (Unsp spec) [Mass/Vol] 1.7 mg/dL 1.5-2.2 [facility] Mean corpuscular hemoglobin (MCH) determinationOrdered By: Danny Hutton on 01-28-2025 MCH (RBC) [Entitic mass] 29.4 pg 27.0-32.0 [facility] Monocyte percentageOrdered B y: Danny Hutton on 01-28-2025 Monocytes/100 WBC (Bld) 16.7 % High 0-10 [facility] Mucus LM Ql (Urine sed)Order ed By: Danny Hutton on 01-28-2025 Mucus Ql (Urine sed) 0 SEEN /hpf [facility] Natriuretic peptide.B prohor prachi N-Terminal [Mass/volume] in Serum or PlasmaOrdered By: Danny Hutton on 01-28-2025 Natriuretic peptide.B prohormone N-Terminal [Mass/Vol] 140 pg/mL <900 [facility] Neutrophil percentageOrdered By: Bryant Pond Anni on 01-28-2025 Neutrophils/100 WBC (Bld) 57.8 % 47-70 [facility] Nitrite Test strip Ql (U)Ord ered By: Danny Hutton on 01-28-2025 Nitrite Ql (U) Negative Negative [facility] No Panel InformationOrdered By: [facility] on 01-28-2025 58 U/L High <38 [facility] Partial Thromboplast Timeon 01-28-2025 aPTT Coag (Bld) [Time] 38.4 s High 24.1-36.2 [facility] Comment on above: Performed By: #### L 500.3400, L503.6005, L300.3900, L500.2500, L501.2450, L501.5200, L300.4310, L501.4021, L100.0100, L503.7505 ####[facility] [address] [place], [address] Platelet countOrdered By: Darin Hutton on 01-28-2025 Platelets (Bld) [#/Vol] 115 10*3/uL Low 150-450 [facility] Potassium measurement (mass/ volume)Ordered By: Danny Hutton on 01-28-2025 Potassium (Unsp spec) [Mass/Vol] 3.4 mmol/L 3.3-5.1 [facility] Protein Test strip Ql (U)Ord ered By: Danny Hutton on 01-28-2025 Protein Ql (U) 100 mg/dl High Negative [facility] Prothrombin Time w/INRon INR Coag (PPP) [Relative time] 1.7 {INR} Normal [facility] Comment on above: Performed By: #### L 500.3400, L503.6005, L300.3900, L500.2500, L501.2450, L501.5200, L300.4310, L501.4021, L100.0100, L503.7505 ####[facility] [address] [place], [address] PT Coag (PPP) [Time] 20.0 s High 11.7-14.9 [facility] Comment on above: Performed By: #### L 500.3400, L503.6005, L300.3900, L500.2500, L501.2450, L501.5200, L300.4310, L501.4021, L100.0100, L503.7505 ####[facility] [address] [place], [address] Prothrombin timeOrdered By: Danny Hutton on 01-28-2025 PT Coag (PPP) [Time] 20.0 s High 11.7-14.9 [facility] RBC Auto (Bld) [#/Vol]Ordere d By: Danny Hutton on 01-28-2025 RBC (Bld) [#/Vol] 2.82 10*6/uL Low 4.6-6.2 [facility] Serum creatinine measurement (mass/volume)Ordered By: Danny Hutton on 01-28-2025 Creatinine [Mass/Vol] 1.16 mg/dL 0.70-1.20 [facility] Serum globulin measurementOr dered By: Danny Hutton on 01-28-2025 Globulin (S) [Mass/Vol] 3.3 g/dL 2.2-4.2 [facility] Serum glucose measurement (m ass/volume)Ordered By: Danny Hutton on 01-28-2025 Glucose [Mass/Vol] 93 mg/dL 70-99 [facility] Serum or plasma alanine thomas otransferase (ALT) measurementOrdered By: Danny Hutton on 01-28-2025 ALT [Catalytic activity/Vol] 31 U/L <47 [facility] Serum or plasma albumin roosevelt urement (mass/volume)Ordered By: Danny Barker on 01-28-2025 Albumin [Mass/Vol] 2.5 g/dL Low 3.5-5.0 [facility] Serum or plasma alkaline kendrick sphatase measurementOrdered By: Danny Hutton on 01-28-2025 ALP [Catalytic activity/Vol] 201 U/L High 40-129 [facility] Serum or plasma calcium roosevelt urement (mass/volume)Ordered By: Danny Barker on 01-28-2025 Calcium [Mass/Vol] 8.9 mg/dL 7.6-11.0 [facility] Serum or plasma urea nitroge n measurement (mass/volume)Ordered By: Danny Hutton on 01-28-2025 Urea nitrogen [Mass/Vol] 15 mg/dL 4-19 [facility] Sodium levelOrdered By: Srinath Huttno on 01-28-2025 Sodium [Moles/Vol] 131 mmol/L Low 133-145 [facility] Squamous epithelial cells de tection in urine sediment by light microscopyOrdered By: Danny Hutton on 01-28-2025 Epithelial cells.squamous LM Ql (Urine sed) 0 SEEN /hpf 0-5 [facility] Total proteinOrdered By: Silvano Hutton on 01-28-2025 Protein [Mass/Vol] 5.9 g/dL 5.9-8.4 [facility] Troponin T.cardiac [Mass/vol ume] in Serum or Plasma by High sensitivity methodOrdered By: Danny Hutton on 01-28-2025 Troponin T.cardiac High sensitivity method [Mass/Vol] 13 ng/L <22 [facility] Urinalysis, Completeon 01-28 BACTERIA 1+ /hpf Normal None Seen [facility] Comment on above: Order Comment: COLOR OF URINE MAY AFFECT DIPSTICK RESULTS.PAPER REWINDER TO SPECIFY Performed By: #### L 400.0001 ####[facility] [address] [place] [address] RBC > 100 SEEN Normal [address] [place] [address] Comment on above: Order Comment: COLOR OF URINE MAY AFFECT DIPSTICK RESULTS.PAPER REWINDER TO SPECIFY Performed By: #### L 400.0001 ####[facility] [address] [facility] [address] WBC 10-25 SEEN Normal [address] Comment on above: Order Comment: COLOR OF URINE MAY AFFECT DIPSTICK RESULTS.PAPER REWINDER TO SPECIFY Performed By: #### L 400.0001 ####[facility] [address] [facility] [address] EPI,SQUAMOUS 0 SEEN Normal [address] [place] [address] Comment on above: Order Comment: COLOR OF URINE MAY AFFECT DIPSTICK RESULTS.PAPER REWINDER TO SPECIFY Performed By: #### L 400.0001 ####[facility] [address] [place], [address] Mucus Ql (Urine sed) 0 SEEN Normal [facility] Comment on above: Order Comment: COLOR OF URINE MAY AFFECT DIPSTICK RESULTS.PAPER REWINDER TO SPECIFY Performed By: #### L 400.0001 ####[facility] [address] [place], [address] Urine clarityOrdered By: Silvano Hutton on 01-28-2025 Clarity (U) Cloudy Clear [facility] Urine color determinationOrd ered By: Danny Hutton on 01-28-2025 Color (U) Lexis Yellow [facility] Urine cultureOrdered By: Silvano Hutton on 01-28-2025 Bacteria identified Cx Nom (U) Vancomycin Resist. E. 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 [facility] Urine glucose detectionOrder ed By: Danny Hutton on 01-28-2025 Glucose Ql (U) Normal mg/dl Normal [facility] Urine leukocyte esterase det ection by dipstickOrdered By: Danny Hutton on 01-28-2025 Leukocyte esterase Test strip Ql (U) 500 /ul High Negative [facility] Urine pHOrdered By: Danny Santiago on 01-28-2025 pH (U) 8.0 [pH] 5.0 - 8.0 [facility] Urine sediment bacteria coun t by microscopy (number/high power field)Ordered By: Danny Hutton on 01-28-2025 Bacteria LM.HPF (Urine sed) [#/Area] 1 /[HPF] None Seen [facility] Urine specific gravity measu rementOrdered By: Danny Hutton on 01-28-2025 Specific gravity (U) [Rel density] 1.015 1.002-1.030 [facility] Urine urobilinogen measureme ntOrdered By: Danny Hutton on 01-28-2025 Urobilinogen Ql (U) Normal mg/dl Normal [facility] Venous blood ammonia measure mentOrdered By: Danny Hutton on 01-28-2025 Ammonia (P) [Moles/Vol] 108.0 umol/L High 16-60 [facility] White blood cell (WBC) count Ordered By: Danny Hutton on 01-28-2025 WBC (Bld) [#/Vol] 5.2 10*3/uL 4.4-11.0 [facility] White blood cell countOrdere d By: Danny Hutton on 01-28-2025 White blood cell count 10-25 SEEN /hpf 0-5 [facility] Body Fluid Cell Count+Diffon 01-25-2025 MESOTHELIAL 7 Normal [facility] Comment on above: Order Comment: The r eference range and other method performancespecifications have not been established for this bodyfluid. The test must be integrated into the clinicalcontext for interpretation. Result Comment: AMENDED REPORT 01/25/25 1125 OTHER CELL/BF previously reported as: 7 % Performed By: #### L 200.0200, L350.1000, M100.2900, M100.4001, M100.1999 ####[facility] [address] [place], [address] Culture, Anaerobic Any Sourc iliana 01-24-2025 CUAN No growth in 5 days. Normal [facility] Comment on above: Performed By: #### L 200.0200, L350.1000, M100.2900, M100.4001, M100.2000 ####[facility] [address] [place], [address] Anion gap in Serum or Plasma Ordered By: Anurag Irene on 01-21-2025 Anion gap [Moles/Vol] 7 mmol/L - [facility] BUN/creatinine ratioOrdered By: Anurag Irene on 01-21-2025 Urea nitrogen/Creatinine [Mass ratio] 15.6 mg/mg 05-23 [facility] Bedside Glucoseon 01-21-2025 FINGERSTICK GLU 151 mg/dL High 74-106 [facility] Comment on above: Result Comment: BRISA MOROCHO OF PATIENT CARE PER NURSING PROTOCOL Performed By: #### L 501.080 ####[facility] [address], [address] FINGERSTICK GLU 199 mg/dL High 74-106 [facility] Comment on above: Result Comment: BRISA MOROCHO OF PATIENT CARE PER NURSING PROTOCOL Performed By: #### L 501.080 ####[facility] [address], [address] Bilirubin, totalOrdered By: Anurag Irene on 01-21-2025 Bilirubin [Mass/Vol] 1.52 mg/dL High 0.00-1.30 [facility] Carbon dioxide, total [Moles /volume] in Central venous bloodOrdered By: Anurag Irene on 01-21-2025 CO2 [Moles/Vol] 29.7 mmol/L 21.0-32.0 [facility] Chloride assayOrdered By: Francois Irene on 01-21-2025 Chloride [Moles/Vol] 96 mmol/L Low 98-108 [facility] Comprehensive Metabolic Prof ilon 01-21-2025 Albumin [Mass/Vol] 2.1 g/dL Low 3.5-5.0 [facility] Comment on above: Performed By: #### L 500.4050 ####[facility] [address] [place], [address] Albumin/Globulin [Mass ratio] 0.8 {ratio} Low 0.9-2.4 [facility] Comment on above: Performed By: #### L 500.4050 ####[facility] [address] [place], [address] ALK PHOS 204 U/L High 40-129 [facility] Comment on above: Performed By: #### L 500.4050 ####[facility] [address], [address] ALT [Catalytic activity/Vol] 28 U/L Normal <=46 [facility] Comment on above: Performed By: #### L 500.4050 ####[facility] [address] [place], [address] AST [Catalytic activity/Vol] 48 U/L High <=37 [facility] Comment on above: Performed By: #### L 500.4050 ####[facility] [address] [place], [address] Bilirubin [Mass/Vol] 1.52 mg/dL High 0.00-1.30 [facility] Comment on above: Performed By: #### L 500.4050 ####[facility] [address] [place], [address] BUN/CRE 15.6 RATIO Normal 10-20 [facility] Comment on above: Performed By: #### L 500.4050 ####[facility] [address] [place], [address] Calcium [Mass/Vol] 8.1 mg/dL Normal 7.6-11.0 [facility] Comment on above: Performed By: #### L 500.4050 ####[facility] [address] [place], [address] Chloride [Moles/Vol] 96 mmol/L Low 98-108 [facility] Comment on above: Performed By: #### L 500.4050 ####[facility] [address] [place], [address] CO2 [Moles/Vol] 29.7 mmol/L Normal 21.0-32.0 [facility] Comment on above: Performed By: #### L 500.4050 ####[facility] [address] [place], [address] Creatinine [Mass/Vol] 0.86 mg/dL Normal 0.70-1.20 [facility] Comment on above: Performed By: #### L 500.4050 ####[facility] [address] [place], [address] ECRCL 114.50 ml/min Normal 50-250 [facility] Comment on above: Performed By: #### L 500.4050 ####[facility] [address] [place], [address] GAP 7 Normal 5-15 [facility] Comment on above: Performed By: #### L 500.4050 ####[facility] [address] [place], [address] GFR/1.73 sq M.predicted among non-blacks MDRD (S/P/Bld) [Vol rate/Area] 100 mL/min/{1.73_m2} Normal >60 [facility] Comment on above: Result Comment: mL/m in/1.73m2 CKD-EPI Creatinine Equation (2020) Performed By: #### L 500.4050 ####[facility] [address] [place], [address] Globulin (S) [Mass/Vol] 2.6 g/dL Normal 2.2-4.2 [facility] Comment on above: Performed By: #### L 500.4050 ####[facility] [address] [place], [address] Glucose [Mass/Vol] 199 mg/dL High 70-99 [facility] Comment on above: Performed By: #### L 500.4050 ####[facility] [address] [place], [address] Potassium [Moles/Vol] 3.1 mmol/L Low 3.3-5.1 [facility] Comment on above: Performed By: #### L 500.4050 ####[facility] [address] [place], [address] Sodium [Moles/Vol] 133 mmol/L Normal 133-145 [facility] Comment on above: Performed By: #### L 500.4050 ####[facility] [address] [place], [address] T PROT 4.7 g/dL Low 5.9-8.4 [facility] Comment on above: Performed By: #### L 500.4050 ####[facility] [address] [place], [address] Urea nitrogen [Mass/Vol] 13 mg/dL Normal 4-19 [facility] Comment on above: Performed By: #### L 500.4050 ####[facility] [address] [place], [place], [id number] Glomerular filtration rate ( GFR) estimation/1.73 sq m using serum, plasma, or whole bOrdered By: Anurag Irene on 01-21-2025 GFR/1.73 sq M.predicted among non-blacks MDRD (S/P/Bld) [Vol rate/Area] 100 mL/min/{1.73_m2} >60 [facility] Gl[facility] at [facility] deOrdered By: Anurag Irene on 01-21-2025 Glucose [Mass/Vol] 151 mg/dL High 74-106 [facility] No Panel InformationOrdered By: Anurag Irene on 01-21-2025 48 U/L High <38 [facility] Potassium measurement (mass/ volume)Ordered By: Anurag Irene on 01-21-2025 Potassium (Unsp spec) [Mass/Vol] 3.1 mmol/L Low 3.3-5.1 [facility] Serum creatinine measurement (mass/volume)Ordered By: Anurag Irene on 01-21-2025 Creatinine [Mass/Vol] 0.86 mg/dL 0.70-1.20 [facility] Serum globulin measurementOr dered By: Anurag Irene on 01-21-2025 Globulin (S) [Mass/Vol] 2.6 g/dL 2.2-4.2 [facility] Serum glucose measurement (m ass/volume)Ordered By: Anurag Irene on 01-21-2025 Glucose [Mass/Vol] 199 mg/dL High 70-99 [facility] Serum or plasma alanine thomas otransferase (ALT) measurementOrdered By: Anurag Irene on 01-21-2025 ALT [Catalytic activity/Vol] 28 U/L <47 [facility] Serum or plasma albumin roosevelt urement (mass/volume)Ordered By: Anurag Irene on 01-21-2025 Albumin [Mass/Vol] 2.1 g/dL Low 3.5-5.0 [facility] Serum or plasma albumin/glob ulin mass ratioOrdered By: Anurag Irene on 01-21-2025 Albumin/Globulin [Mass ratio] 0.8 {ratio} Low 0.9-2.4 [facility] Serum or plasma alkaline kendrick sphatase measurementOrdered By: Anurag Irene on 01-21-2025 ALP [Catalytic activity/Vol] 204 U/L High 40-129 [facility] Serum or plasma calcium roosevelt urement (mass/volume)Ordered By: Anurag Irene on 01-21-2025 Calcium [Mass/Vol] 8.1 mg/dL 7.6-11.0 [facility] Serum or plasma urea nitroge n measurement (mass/volume)Ordered By: Anurag Irene on 01-21-2025 Urea nitrogen [Mass/Vol] 13 mg/dL 4-19 [facility] Sodium levelOrdered By: Marni Irene on 01-21-2025 Sodium [Moles/Vol] 133 mmol/L 133-145 [facility] Total proteinOrdered By: [place] Irene on 01-21-2025 Protein [Mass/Vol] 4.7 g/dL Low 5.9-8.4 [facility] Absolute lymphocyte countOrd ered By: Anurag Irene on 01-20-2025 Lymphocytes Auto (Unsp spec) [#/Vol] 1.10 10*3/uL 0.83-4.51 [facility] Automated lymphocyte count a s percentage of total leukocytesOrdered By: Anurag Irene on 01-20-2025 Lymphocytes/100 WBC Auto (Unsp spec) 16.3 % Low 19-41 [facility] Basophil percentageOrdered B y: Anurag Irene on 01-20-2025 Basophils/100 WBC (Bld) 0.6 % 0-1 [facility] Bedside Glucoseon 01-20-2025 FINGERSTICK GLU 206 mg/dL High 74-106 [facility] Comment on above: Result Comment: BRISA GEMENT OF PATIENT CARE PER NURSING PROTOCOL Performed By: #### L 501.080 ####[facility] [address] [place], [address] FINGERSTICK GLU 188 mg/dL High [address] [facility] Comment on above: Result Comment: BRISA GEMENT OF PATIENT CARE PER NURSING PROTOCOL Performed By: #### L 501.080 ####[facility] [address] [place], [address] FINGERSTICK GLU 167 mg/dL High 74-106 [facility] Comment on above: Result Comment: BRISA GEMENT OF PATIENT CARE PER NURSING PROTOCOL Performed By: #### L 501.080 ####[facility] [address] [place], [address] FINGERSTICK GLU 164 mg/dL High 74-106 [facility] Comment on above: Result Comment: BRISA GEMENT OF PATIENT CARE PER NURSING PROTOCOL Performed By: #### L 501.080 ####[facility] [address] [place], [address] Blood manual differential co mment interpretation (narrative result)Ordered By: Anurag Irene on 01-20-2025 Manual differential comment Marco Antonio (Bld) [Interp] SCANNED [facility] CBC W/Diff, Automatedon - PLT EST MOD DEC Normal ADEQ [facility] Comment on above: Performed By: #### L 100.0100 ####[facility] [address] [place], [address] SMEAR COMMENT SCANNED Normal [facility] Comment on above: Performed By: #### L 100.0100 ####[facility] [address] [place], [address] Comprehensive Metabolic Prof ilon 01-20-2025 Albumin [Mass/Vol] 2.0 g/dL Low 3.5-5.0 [facility] Comment on above: Performed By: #### L 500.4050 ####[facility] [address] [place], [address] Albumin/Globulin [Mass ratio] 0.7 {ratio} Low 0.9-2.4 [facility] Comment on above: Performed By: #### L 500.4050 ####[facility] [address] [place], [address] ALK PHOS 211 U/L High 40-129 [facility] Comment on above: Performed By: #### L 500.4050 ####[facility] [address] [place], [address] ALT [Catalytic activity/Vol] 32 U/L Normal <=46 [facility] Comment on above: Performed By: #### L 500.4050 ####[facility] [address] [place], [address] AST [Catalytic activity/Vol] 45 U/L High <=37 [facility] Comment on above: Performed By: #### L 500.4050 ####[facility] [address] [place], [address] Bilirubin [Mass/Vol] 1.61 mg/dL High 0.00-1.30 [facility] Comment on above: Performed By: #### L 500.4050 ####[facility] [address] [place], [address] BUN/CRE 13.4 RATIO Normal 10-20 [facility] Comment on above: Performed By: #### L 500.4050 ####[facility] [address] [place], [address] Calcium [Mass/Vol] 8.1 mg/dL Normal 7.6-11.0 [facility] Comment on above: Performed By: #### L 500.4050 ####[facility] [address] [place], [address] Chloride [Moles/Vol] 95 mmol/L Low 98-108 [facility] Comment on above: Performed By: #### L 500.4050 ####[facility] [address] [place], [address] CO2 [Moles/Vol] 30.3 mmol/L Normal 21.0-32.0 [facility] Comment on above: Performed By: #### L 500.4050 ####[facility] [address] [place], [address] Creatinine [Mass/Vol] 0.87 mg/dL Normal 0.70-1.20 [facility] Comment on above: Performed By: #### L 500.4050 ####[facility] [address] [place], [address] ECRCL 112.61 ml/min Normal 50-250 [facility] Comment on above: Performed By: #### L 500.4050 ####[facility] [address] [place], [address] GAP 7 Normal 5-15 [facility] Comment on above: Performed By: #### L 500.4050 ####[facility] [address] [place], [address] GFR/1.73 sq M.predicted among non-blacks MDRD (S/P/Bld) [Vol rate/Area] 100 mL/min/{1.73_m2} Normal >60 [facility] Comment on above: Result Comment: mL/m in/1.73m2 CKD-EPI Creatinine Equation (2020) Performed By: #### L 500.4050 ####[facility] [address] [place], [address] Globulin (S) [Mass/Vol] 2.9 g/dL Normal 2.2-4.2 [facility] Comment on above: Performed By: #### L 500.4050 ####[facility] [address] [place], [address] Glucose [Mass/Vol] 195 mg/dL High 70-99 [facility] Comment on above: Performed By: #### L 500.4050 ####[facility] [address] [place], [address] Potassium [Moles/Vol] 3.1 mmol/L Low 3.3-5.1 [facility] Comment on above: Performed By: #### L 500.4050 ####[facility] [address] [place], [address] Sodium [Moles/Vol] 133 mmol/L Normal 133-145 [facility] Comment on above: Performed By: #### L 500.4050 ####[facility] [address] [place], [address] T PROT 4.9 g/dL Low 5.9-8.4 [facility] Comment on above: Performed By: #### L 500.4050 ####[facility] [address] [place], [address] Urea nitrogen [Mass/Vol] 12 mg/dL Normal 4-19 [facility] Comment on above: Performed By: #### L 500.4050 ####[facility] [address] [place], [address] Eosinophil percentageOrdered By: Anurag Irene on 01-20-2025 Eosinophils/100 WBC (Bld) 6.5 % High 0-5 [facility] Erythrocyte distribution wid th ratioOrdered By: Anurag Irene on 01-20-2025 Erythrocyte distribution width (RBC) [Ratio] 18.3 % High 11.6-14.6 [facility] Erythrocyte distribution wid th standard deviationOrdered By: Anurag Irene on 01-20-2025 Erythrocyte distribution width (RBC) [Ratio] 58.5 fl High 35.1-43.9 [facility] Hematocrit Auto (Bld) [Volum e fraction]Ordered By: Anurag Irene on 01-20-2025 Hematocrit (Bld) [Volume fraction] 22.9 % Low 40-54 [facility] Hemoglobin measurementOrdere d By: Anurag Irene on 01-20-2025 Hemoglobin (Bld) [Mass/Vol] 7.7 g/dL Low 13.0-16.5 [facility] Immature granulocytes/100 WB C Auto (Bld)Ordered By: Anurag Irene on 01-20-2025 Immature granulocytes/100 WBC (Bld) 1.200 % High 0.0-0.9 [facility] MCV (mean corpuscular volume ) determinationOrdered By: Anurag Irene on 01-20-2025 MCV (RBC) [Entitic vol] 88.1 fL 80-94 [facility] Mean corpuscular hemoglobin (MCH) determinationOrdered By: Anurag Irene on 01-20-2025 MCH (RBC) [Entitic mass] 29.6 pg 27.0-32.0 [facility] Monocyte percentageOrdered B y: Anurag Irene on 01-20-2025 Monocytes/100 WBC (Bld) 11.9 % High 0-10 [facility] Neutrophil percentageOrdered By: Anurag Irene on 01-20-2025 Neutrophils/100 WBC (Bld) 63.5 % 47-70 [facility] Platelet countOrdered By: Francois Irene on 01-20-2025 Platelets (Bld) [#/Vol] 93 10*3/uL Low 150-450 [facility] Platelet estimateOrdered By: Anurag Irene on 01-20-2025 Platelets LM Ql (Bld) [facility] RBC Auto (Bld) [#/Vol]Ordere d By: Anurag Irene on 01-20-2025 RBC (Bld) [#/Vol] 2.60 10*6/uL Low 4.6-6.2 [facility] White blood cell (WBC) count Ordered By: Anurag Irene on 01-20-2025 WBC (Bld) [#/Vol] 6.8 10*3/uL 4.4-11.0 [facility] Activated partial thrombopla stin time (aPTT) in platelet poor plasma by coagulation aOrdered By: Rosendo Renee on 01-19-2025 aPTT Coag (PPP) [Time] 46.6 s High 24.1-36.2 [facility] Albumin, Serumon 01-19-2025 Albumin [Mass/Vol] 2.2 g/dL Low 3.5-5.0 [facility] Comment on above: Performed By: #### L 300.3900, L501.1800, L501.2300, L300.4310, L501.5200 ####[facility] [address] [place], [address] Bedside Glucoseon 01-19-2025 FINGERSTICK GLU 225 mg/dL High 74-106 [facility] Comment on above: Result Comment: BRISA GEMENT OF PATIENT CARE PER NURSING PROTOCOL Performed By: #### L 501.080 ####[facility] [address] [place], [address] FINGERSTICK GLU 268 mg/dL High [facility] Comment on above: Result Comment: BRISA GEMENT OF PATIENT CARE PER NURSING PROTOCOL Performed By: #### L 501.080 ####[facility] [address] [place], [address] FINGERSTICK GLU 187 mg/dL High 74-106 [facility] Comment on above: Result Comment: BRISA GEMENT OF PATIENT CARE PER NURSING PROTOCOL Performed By: #### L 501.080 ####[facility] [address] [place], [address] FINGERSTICK GLU 198 mg/dL High 74-106 [facility] Comment on above: Result Comment: BRISA GEMENT OF PATIENT CARE PER NURSING PROTOCOL Performed By: #### L 501.080 ####[facility] [address] [place], [address] Bilirubin directOrdered By: Anurag Irene on 01-19-2025 Bilirubin.direct [Mass/Vol] 1.00 mg/dL High 0.00-0.30 [facility] Bilirubin, Directon 01-20-20 Bilirubin.direct [Mass/Vol] 1.00 mg/dL High 0.00-0.30 [facility] Comment on above: Performed By: #### L 501.4700, L100.0100, L500.4050 ####[facility] [address] [place], [address] Body Fluid Culton 01-19-2025 BFC Culture exhibits no growth. Normal [facility] Comment on above: Performed By: #### L 200.0200, L350.1000, M100.2900, M100.4001, M100.2000 ####[facility] [address] [place], [address] CBC W/Diff, Automatedon 01-02 Absolute Lymph 1.08 X10 3/uL Normal 0.83-4.51 [facility] Comment on above: Performed By: #### L 501.4700, L100.0100, L500.4050 ####[facility] [address] [place], [address] Absolute Neut 5.4 X10 3/uL Normal 2.0-7.7 [facility] Comment on above: Performed By: #### L 501.4700, L100.0100, L500.4050 ####[facility] [address] [place], [address] Basophils/100 WBC (Bld) 0.5 % Normal 0-1 [facility] Comment on above: Performed By: #### L 501.4700, L100.0100, L500.4050 ####[facility] [address] [place], [address] Eosinophils/100 WBC (Bld) 5.8 % High 0-5 [facility] Comment on above: Performed By: #### L 501.4700, L100.0100, L500.4050 ####[facility] [address] [place], [address] Erythrocyte distribution width (RBC) [Ratio] 18.6 % High 11.6-14.6 [facility] Comment on above: Performed By: #### L 501.4700, L100.0100, L500.4050 ####[facility] [address] [place], [address] Hematocrit (Bld) [Volume fraction] 22.3 % Low 40-54 [facility] Comment on above: Performed By: #### L 501.4700, L100.0100, L500.4050 ####[facility] [address] [place], [address] Hemoglobin (Bld) [Mass/Vol] 7.6 g/dL Low 13.0-16.5 [facility] Comment on above: Performed By: #### L 501.4700, L100.0100, L500.4050 ####[facility] [address] [place], [address] IG% 1.400 High 0.0-0.9 [facility] Comment on above: Result Comment: IG% - Immature Granulocytes (promyelocytes, myelocytes andmetamyelocytes) > 1% indicates that a LEFT SHIFT is Present. Performed By: #### L 501.4700, L100.0100, L500.4050 ####[facility] [address] [place], [address] Lymphocytes/100 WBC (Bld) 13.6 % Low 19-41 [facility] Comment on above: Performed By: #### L 501.4700, L100.0100, L500.4050 ####[facility] [address] [place], [address] MCH (RBC) [Entitic mass] 30.3 pg Normal 27.0-32.0 [facility] Comment on above: Performed By: #### L 501.4700, L100.0100, L500.4050 ####[facility] [address] [place], [address] MCHC (RBC) [Mass/Vol] 34.1 g/dL Normal 32-36 [facility] Comment on above: Performed By: #### L 501.4700, L100.0100, L500.4050 ####[facility] [address] [place], [address] MCV (RBC) [Entitic vol] 88.8 fL Normal 80-94 [facility] Comment on above: Performed By: #### L 501.4700, L100.0100, L500.4050 ####[facility] [address] [place], [address] Monocytes/100 WBC (Bld) 11.0 % High 0-10 [facility] Comment on above: Performed By: #### L 501.4700, L100.0100, L500.4050 ####[facility] [address] [place], [address] Neutrophils/100 WBC (Bld) 67.7 % Normal 47-70 [facility] Comment on above: Performed By: #### L 501.4700, L100.0100, L500.4050 ####[facility] [address] [place], [address] Nucleated RBC (Bld) [#/Vol] 0 10*3/uL Normal 0-5 [facility] Comment on above: Performed By: #### L 501.4700, L100.0100, L500.4050 ####[facility] [address] [place], [address] Platelet mean volume (Bld) [Entitic vol] 11.1 fL Normal 6.2-12.0 [facility] Comment on above: Performed By: #### L 501.4700, L100.0100, L500.4050 ####[facility] [address] [place], [address] Platelets (Bld) [#/Vol] 107 10*3/uL Low 150-450 [facility] Comment on above: Performed By: #### L 501.4700, L100.0100, L500.4050 ####[facility] [address] [place], [address] RBC (Bld) [#/Vol] 2.51 10*6/uL Low 4.6-6.2 [facility] Comment on above: Performed By: #### L 501.4700, L100.0100, L500.4050 ####[facility] [address] [place], [address] RDW SD 59.0 fl High 35.1-43.9 [facility] Comment on above: Performed By: #### L 501.4700, L100.0100, L500.4050 ####[facility] [address] [place], [address] WBC (Bld) [#/Vol] 7.9 10*3/uL Normal 4.4-11.0 [facility] Comment on above: Performed By: #### L 501.4700, L100.0100, L500.4050 ####[facility] [address] [place], [address] Comprehensive Metabolic Prof ilon 01-19-2025 Albumin [Mass/Vol] 2.2 g/dL Low 3.5-5.0 [facility] Comment on above: Performed By: #### L 501.4700, L100.0100, L500.4050 ####[facility] [address] [place], [address] Albumin/Globulin [Mass ratio] 0.9 {ratio} Normal 0.9-2.4 [facility] Comment on above: Performed By: #### L 501.4700, L100.0100, L500.4050 ####[facility] [address] [place], [address] ALK PHOS 225 U/L High 40-129 [facility] Comment on above: Performed By: #### L 501.4700, L100.0100, L500.4050 ####[facility] [address] [place], [address] ALT [Catalytic activity/Vol] 34 U/L Normal <=46 [facility] Comment on above: Performed By: #### L 501.4700, L100.0100, L500.4050 ####[facility] [address] [place], [address] AST [Catalytic activity/Vol] 52 U/L High <=37 [facility] Comment on above: Performed By: #### L 501.4700, L100.0100, L500.4050 ####[facility] [address] [place], [address] Bilirubin [Mass/Vol] 1.70 mg/dL High 0.00-1.30 [facility] Comment on above: Performed By: #### L 501.4700, L100.0100, L500.4050 ####[facility] [address] [place], [address] BUN/CRE 10.4 RATIO Normal 10-20 [facility] Comment on above: Performed By: #### L 501.4700, L100.0100, L500.4050 ####[facility] [address] [place], [address] Calcium [Mass/Vol] 7.9 mg/dL Normal 7.6-11.0 [facility] Comment on above: Performed By: #### L 501.4700, L100.0100, L500.4050 ####[facility] [address] [place], [address] Chloride [Moles/Vol] 94 mmol/L Low 98-108 [facility] Comment on above: Performed By: #### L 501.4700, L100.0100, L500.4050 ####[facility] [address] [place], [address] CO2 [Moles/Vol] 30.7 mmol/L Normal 21.0-32.0 [facility] Comment on above: Performed By: #### L 501.4700, L100.0100, L500.4050 ####[facility] [address] [place], [address] Creatinine [Mass/Vol] 1.05 mg/dL Normal 0.70-1.20 [facility] Comment on above: Performed By: #### L 501.4700, L100.0100, L500.4050 ####[facility] [address] [place], [address] ECRCL 93.35 ml/min Normal 50-250 [facility] Comment on above: Performed By: #### L 501.4700, L100.0100, L500.4050 ####[facility] [address] [place], [address] GAP 7 Normal 5-15 [facility] Comment on above: Performed By: #### L 501.4700, L100.0100, L500.4050 ####[facility] [address] [place], [address] GFR/1.73 sq M.predicted among non-blacks MDRD (S/P/Bld) [Vol rate/Area] 82 mL/min/{1.73_m2} Normal >60 [facility] Comment on above: Result Comment: mL/m in/1.73m2 CKD-EPI Creatinine Equation (2020) Performed By: #### L 501.4700, L100.0100, L500.4050 ####[facility] [address] [place], [address] Globulin (S) [Mass/Vol] 2.6 g/dL Normal 2.2-4.2 [facility] Comment on above: Performed By: #### L 501.4700, L100.0100, L500.4050 ####[facility] [address] [place], [address] Glucose [Mass/Vol] 220 mg/dL High 70-99 [facility] Comment on above: Performed By: #### L 501.4700, L100.0100, L500.4050 ####[facility] [address] [place], [address] Potassium [Moles/Vol] 3.0 mmol/L Low 3.3-5.1 [facility] Comment on above: Performed By: #### L 501.4700, L100.0100, L500.4050 ####[facility] [address] [place], [address] Sodium [Moles/Vol] 132 mmol/L Low 133-145 [facility] Comment on above: Performed By: #### L 501.4700, L100.0100, L500.4050 ####[facility] [address] [place], [address] T PROT 4.8 g/dL Low 5.9-8.4 [facility] Comment on above: Performed By: #### L 501.4700, L100.0100, L500.4050 ####[facility] [address] [place], [address] Urea nitrogen [Mass/Vol] 11 mg/dL Normal 4-19 [facility] Comment on above: Performed By: #### L 501.4700, L100.0100, L500.4050 ####[facility] [address] [place], [address] Gram Stainon 01-19-2025 GS Centrifuged Specimen ? Culture performed on centrifuged specimen Gram Stain No organisms seen No cells seen Normal [facility] Comment on above: Performed By: #### L 200.0200, L350.1000, M100.2900, M100.4001, M100.2000 ####[facility] [address] [place], [address] Liver Profileon 01-19-2025 ALB Normal 3.5-5.0 [facility] Comment on above: Result Comment: MOVE D TO DIFFERENT REQ- SEE C50 Performed By: #### L 500.3400 ####[facility] [address] [place], [address] ALK PHOS Normal 40-129 [facility] Comment on above: Result Comment: MOVE D TO DIFFERENT REQ- SEE C50 Performed By: #### L 500.3400 ####[facility] [address] [place], [address] ALT Normal <=46 [facility] Comment on above: Result Comment: MOVE D TO DIFFERENT REQ- SEE C50 Performed By: #### L 500.3400 ####[facility] [address] [place], [address] AST Normal <=37 [facility] Comment on above: Result Comment: MOVE D TO DIFFERENT REQ- SEE C50 Performed By: #### L 500.3400 ####[facility] [address] [place], [address] D BILI Normal 0.00-0.30 [facility] Comment on above: Result Comment: MOVE D TO DIFFERENT REQ- SEE C50 Performed By: #### L 500.3400 ####[facility] [address] [place], [address] T BILI Normal 0.00-1.30 [facility] Comment on above: Result Comment: MOVE D TO DIFFERENT REQ- SEE C50 Performed By: #### L 500.3400 ####[facility] [address] [place], [address] T PROT Normal 5.9-8.4 [facility] Comment on above: Result Comment: MOVE D TO DIFFERENT REQ- SEE C50 Performed By: #### L 500.3400 ####[facility] [address] [place], [address] Magnesiumon 01-19-2025 Magnesium [Mass/Vol] 1.7 mg/dL Normal 1.5-2.2 [facility] Comment on above: Performed By: #### L 300.3900, L501.1800, L501.2300, L300.4310, L501.5200 ####[facility] [address] [place], [address] Magnesium measurement (mass/ volume)Ordered By: Rosendo Renee on 01-19-2025 Magnesium (Unsp spec) [Mass/Vol] 1.7 mg/dL 1.5-2.2 [facility] Partial Thromboplast Timeon 01-19-2025 aPTT Coag (Bld) [Time] 46.6 s High 24.1-36.2 [facility] Comment on above: Performed By: #### L 300.3900, L501.1800, L501.2300, L300.4310, L501.5200 ####[facility] [address] [place], [address] Phosphoruson 01-19-2025 Phosphate [Mass/Vol] 3.5 mg/dL Normal 2.7-4.5 [facility] Comment on above: Performed By: #### L 300.3900, L501.1800, L501.2300, L300.4310, L501.5200 ####[facility] [address] [place], [address] Prothrombin Time w/INRon INR Coag (PPP) [Relative time] 2.0 {INR} Normal [facility] Comment on above: Performed By: #### L 300.3900, L501.1800, L501.2300, L300.4310, L501.5200 ####[facility] [address] [place], [address] PT Coag (PPP) [Time] 22.8 s High 11.7-14.9 [facility] Comment on above: Performed By: #### L 300.3900, L501.1800, L501.2300, L300.4310, L501.5200 ####[facility] [address] [place], [address] Prothrombin timeOrdered By: Rosendo Renee on 01-19-2025 PT Coag (PPP) [Time] 22.8 s High 11.7-14.9 [facility] Abdomen Limitedon 01-18-2025 Abdomen Limited Normal [facility] Anaerobic cultureOrdered By: Anurag Irene on 01-18-2025 Bacteria identified Anaer cx Nom (Unsp spec) No growth in 5 days. [facility] Basic Metabolic Profile (BMP )on 01-18-2025 BUN/CRE 9.8 RATIO Low 10-20 [facility] Comment on above: Performed By: #### L 500.2500 ####[facility] [address] [place], [address] Calcium [Mass/Vol] 7.7 mg/dL Normal 7.6-11.0 [facility] Comment on above: Performed By: #### L 500.2500 ####[facility] [address] [place], [address] Chloride [Moles/Vol] 92 mmol/L Low 98-108 [facility] Comment on above: Performed By: #### L 500.2500 ####[facility] [address] [place], [address] CO2 [Moles/Vol] 31.5 mmol/L Normal 21.0-32.0 [facility] Comment on above: Performed By: #### L 500.2500 ####[facility] [address] [place], [address] Creatinine [Mass/Vol] 0.85 mg/dL Normal 0.70-1.20 [facility] Comment on above: Performed By: #### L 500.2500 ####[facility] [address] [place], [address] ECRCL 116.49 ml/min Normal 50-250 [facility] Comment on above: Performed By: #### L 500.2500 ####[facility] [address] [place], [address] GAP 8 Normal 5-15 [facility] Comment on above: Performed By: #### L 500.2500 ####[facility] [address] [place], [address] GFR/1.73 sq M.predicted among non-blacks MDRD (S/P/Bld) [Vol rate/Area] 101 mL/min/{1.73_m2} Normal >60 [facility] Comment on above: Result Comment: mL/m in/1.73m2 CKD-EPI Creatinine Equation (2020) Performed By: #### L 500.2500 ####[facility] [address] [place], [address] Glucose [Mass/Vol] 228 mg/dL High 70-99 [facility] Comment on above: Performed By: #### L 500.2500 ####[facility] [address] [place], [address] Potassium [Moles/Vol] 2.8 mmol/L Low 3.3-5.1 [facility] Comment on above: Performed By: #### L 500.2500 ####[facility] [address] [place], [address] Sodium [Moles/Vol] 132 mmol/L Low 133-145 [facility] Comment on above: Performed By: #### L 500.2500 ####[facility] [address] [place], [address] Urea nitrogen [Mass/Vol] 8 mg/dL Normal 4-19 [facility] Comment on above: Performed By: #### L 500.2500 ####[facility] [address] [place], [address] Bedside Glucoseon 01-18-2025 FINGERSTICK GLU 250 mg/dL High 74-106 [facility] Comment on above: Result Comment: BRISA GEMENT OF PATIENT CARE PER NURSING PROTOCOL Performed By: #### L 501.080 ####[facility] [address] [place], [address] FINGERSTICK GLU 158 mg/dL High 74-106 [facility] Comment on above: Result Comment: BRISA GEMENT OF PATIENT CARE PER NURSING PROTOCOL Performed By: #### L 501.080 ####[facility] [address], [address] FINGERSTICK GLU 142 mg/dL High 74-106 [facility] Comment on above: Result Comment: BRISA GEMENT OF PATIENT CARE PER NURSING PROTOCOL Performed By: #### L 501.080 ####[facility] [address] [place], [address] FINGERSTICK GLU 171 mg/dL High -106 [facility] Comment on above: Result Comment: BRISA GEMENT OF PATIENT CARE PER NURSING PROTOCOL Performed By: #### L 501.080 ####[facility] [address] [place], [address] Body fluid appearance (nomin al result)Ordered By: Anurag Irene on 01-18-2025 Appearance (Body fld) CLEAR [facility] Body fluid color determinati onOrdered By: Anurag Irene on 01-18-2025 Color (Body fld) LT YEL [facility] Body fluid cultureOrdered By : Anurag Irene on 01-18-2025 Microbial culture, body fluid Culture exhibits no growth. [facility] Body fluid leukocytes count (number/volume)Ordered By: Anurag Irene on 01-18-2025 WBC (Body fld) [#/Vol] 0.143 10*3/uL [facility] Body fluid lymphocytes/100 l eukocytesOrdered By: Anurag Irene on 01-18-2025 Lymphocytes/100 WBC (Body fld) 24 % [facility] Body fluid macrophage countO rdered By: Anurag Irene on 01-18-2025 Macrophages (Body fld) [#/Vol] 46 % [facility] Body fluid mesothelial cell percentageOrdered By: Anurag Irene on 01-18-2025 Mesothelial cells/100 WBC (Body fld) 7 % [facility] Body fluid mononuclear cell percentageOrdered By: Anurag Irene on 01-18-2025 Mononuclear cells/100 WBC (Body fld) 75.6 % [facility] Body fluid other cell count as percentage of leukocytesOrdered By: Anurag Irene on 01-18-2025 Other cells/100 WBC (Body fld) 7 % [facility] Other cells/100 WBC (Body fld) CHORE TENDER [facility] Body fluid protein measureme nt (mass/volume)Ordered By: Anurag Irene on 01-18-2025 Protein (Body fld) [Mass/Vol] 0.3 g/dL Not Establ. [facility] Body fluid segmented neutrop hils count (number/volume)Ordered By: Anurag Irene on 01-18-2025 Segmented neutrophils (Body fld) [#/Vol] 20 % [facility] Body fluid total cell countO rdered By: Anurag Irene on 01-18-2025 Cells Counted Total (Body fld) [#] 0.172 10^3/ul [facility] CBC W/Diff, Automatedon 06-1 -2024 Absolute Lymph 1.13 X10 3/uL Normal 0.83-4.51 [facility] Comment on above: Performed By: #### L 100.0100 ####[facility] [address] [place], [address] Absolute Neut 5.5 X10 3/uL Normal 2.0-7.7 [facility] Comment on above: Performed By: #### L 100.0100 ####[facility] [address] [place], [address] Basophils/100 WBC (Bld) 0.6 % Normal 0-1 [facility] Comment on above: Performed By: #### L 100.0100 ####[facility] [address] [place], [address] Eosinophils/100 WBC (Bld) 6.1 % High 0-5 [facility] Comment on above: Performed By: #### L 100.0100 ####[facility] [address] [place], [address] Erythrocyte distribution width (RBC) [Ratio] 18.7 % High 11.6-14.6 [facility] Comment on above: Performed By: #### L 100.0100 ####[facility] [address] [place], [address] Hematocrit (Bld) [Volume fraction] 22.6 % Low 40-54 [facility] Comment on above: Performed By: #### L 100.0100 ####[facility] [address] [place], [address] Hemoglobin (Bld) [Mass/Vol] 7.7 g/dL Low 13.0-16.5 [facility] Comment on above: Performed By: #### L 100.0100 ####[facility] [address] [place], [address] IG% 1.200 High 0.0-0.9 [facility] Comment on above: Result Comment: IG% - Immature Granulocytes (promyelocytes, myelocytes andmetamyelocytes) > 1% indicates that a LEFT SHIFT is Present. Performed By: #### L 100.0100 ####[facility] [address] [place], [address] Lymphocytes/100 WBC (Bld) 14.0 % Low 19-41 [facility] Comment on above: Performed By: #### L 100.0100 ####[facility] [address] [place], [address] MCH (RBC) [Entitic mass] 30.1 pg Normal 27.0-32.0 [facility] Comment on above: Performed By: #### L 100.0100 ####[facility] [address] [place], [address] MCHC (RBC) [Mass/Vol] 34.1 g/dL Normal 32-36 [facility] Comment on above: Performed By: #### L 100.0100 ####[facility] [address] [place], [address] MCV (RBC) [Entitic vol] 88.3 fL Normal 80-94 [facility] Comment on above: Performed By: #### L 100.0100 ####[facility] [address] [place], [address] Monocytes/100 WBC (Bld) 10.0 % Normal 0-10 [facility] Comment on above: Performed By: #### L 100.0100 ####[facility] [address] [place], [address] Neutrophils/100 WBC (Bld) 68.1 % Normal 47-70 [facility] Comment on above: Performed By: #### L 100.0100 ####[facility] [address] [place], [address] Nucleated RBC (Bld) [#/Vol] 0 10*3/uL Normal 0-5 [facility] Comment on above: Performed By: #### L 100.0100 ####[facility] [address] [place], [address] Platelet mean volume (Bld) [Entitic vol] 10.5 fL Normal 6.2-12.0 [facility] Comment on above: Performed By: #### L 100.0100 ####[facility] [address] [place], [address] Platelets (Bld) [#/Vol] 107 10*3/uL Low 150-450 [facility] Comment on above: Performed By: #### L 100.0100 ####[facility] [address] [place], [address] RBC (Bld) [#/Vol] 2.56 10*6/uL Low 4.6-6.2 [facility] Comment on above: Performed By: #### L 100.0100 ####[facility] [address] [place], [address] RDW SD 58.9 fl High 35.1-43.9 [facility] Comment on above: Performed By: #### L 100.0100 ####[facility] [address] [place], [address] WBC (Bld) [#/Vol] 8.1 10*3/uL Normal 4.4-11.0 [facility] Comment on above: Performed By: #### L 100.0100 ####[facility] [address] [place], [address] Cytology report of Body flui d Cyto stainOrdered By: Anurag Irene on 01-18-2025 Cytology report Cyto stain Doc (Body fld) SEE PATHOLOGY REPORT [facility] Cytology, Body Fluid / CSFon 01-18-2025 CYTOLOGY,BF/CSF SEE PATHOLOGY REPORT Normal [facility] Comment on above: Result Comment: Spec imen submitted to Anatomical Pathology Department fortesting. Performed By: #### L 200.0200, L350.1000, M100.2900, M100.4001, M100.2000 ####[facility] [address] [place], [address] Glucose, Body Fluidon 2024 GLUC, BODY FLD 154 mg/dL Normal Not Establ. [facility] Comment on above: Performed By: #### L 503.0100, L503.0300 ####[facility] [address] [place], [address] Gram stainOrdered By: Anuradha Irene on 01-18-2025 Microscopic observation Gram stain Nom (Unsp spec) [facility] Magnesiumon 01-18-2025 Magnesium [Mass/Vol] 1.6 mg/dL Normal 1.5-2.2 [facility] Comment on above: Performed By: #### L 501.2300, L501.5200 ####[facility] [address] [place], [address] Monocyte detectionOrdered By : Anurag Irene on 01-18-2025 Monocytes/100 WBC (Bld) 3 % [facility] No Panel InformationOrdered By: Anurag Irene on 01-18-2025 218 /mm3 [facility] SEE COMMENT [facility] Paracentesis with USon 01-18 Paracentesis with US Normal [facility] Pathologist interpretation o f Body fluid testsOrdered By: Anurag Irene on 01-18-2025 Pathologist interpretation (Body fld) [Interp] Reviewed [facility] Phosphoruson 01-18-2025 Phosphate [Mass/Vol] 3.7 mg/dL Normal 2.7-4.5 [facility] Comment on above: Performed By: #### L 501.2300, L501.5200 ####[facility] [address] [place], [address] Protein, Body Fluidon 2024 Protein [Mass/Vol] 0.3 g/dL Normal Not Establ. [facility] Comment on above: Performed By: #### L 503.0100, L503.0300 ####[facility] [address] [place], [address] Prothrombin Time w/INRon INR Coag (PPP) [Relative time] 2.0 {INR} Normal [facility] Comment on above: Performed By: #### L 300.3900 ####[facility] [address] [place], [address] PT Coag (PPP) [Time] 22.9 s High 11.7-14.9 [facility] Comment on above: Performed By: #### L 300.3900 ####[facility] [address] [place], [address] Special Stain Group IIon Special Stain Group II Normal [facility] Comment on above: Performed By: #### P SSII ####[facility] [address] [place], [address] Specimen source identificati on of body fluidOrdered By: Anurag Irene on 01-18-2025 Specimen source Nom (Body fld) PERITONEAL FLUID [facility] Stool Occult Blood iFOBon STOB Negative Normal [facility] Comment on above: Performed By: #### M 100.7900 ####[facility] [address] [place], [address] Stool gastrointestinal hemog lobin detection by immunologic methodOrdered By: Cielo Tovar on 01-18-2025 Lower GI hemoglobin IA Ql (Stl) [facility] Bedside Glucoseon 01-17-2025 FINGERSTICK GLU 180 mg/dL High 74-106 [facility] Comment on above: Result Comment: BRISA GEMENT OF PATIENT CARE PER NURSING PROTOCOL Performed By: #### L 501.080 ####[facility] [address], [address] FINGERSTICK GLU 236 mg/dL High 74-106 [facility] Comment on above: Result Comment: BRISA GEMENT OF PATIENT CARE PER NURSING PROTOCOL Performed By: #### L 501.080 ####[facility] [address] [place], [address] FINGERSTICK GLU 141 mg/dL High 74-106 [facility] Comment on above: Result Comment: BRISA GEMENT OF PATIENT CARE PER NURSING PROTOCOL Performed By: #### L 501.080 ####[facility] [address] [place], [address] FINGERSTICK GLU 173 mg/dL High 74-106 [facility] Comment on above: Result Comment: BRISA GEMENT OF PATIENT CARE PER NURSING PROTOCOL Performed By: #### L 501.080 ####[facility] [address] [place], [address] CBC W/Diff, Automatedon 06-08 09-2024 Absolute Lymph 1.09 X10 3/uL Normal 0.83-4.51 [facility] Comment on above: Performed By: #### L 100.0100 ####[facility] [address] [place], [address] Absolute Neut 5.7 X10 3/uL Normal 2.0-7.7 [facility] Comment on above: Performed By: #### L 100.0100 ####[facility] [address] [place], [address] Basophils/100 WBC (Bld) 0.5 % Normal 0-1 W [facility] Comment on above: Performed By: #### L 100.0100 ####[facility] [address], [address] Eosinophils/100 WBC (Bld) 6.8 % High 0-5 [facility] Comment on above: Performed By: #### L 100.0100 ####[facility] [address] [place], [address] Erythrocyte distribution width (RBC) [Ratio] 18.8 % High 11.6-14.6 [facility] Comment on above: Performed By: #### L 100.0100 ####[facility] [address] [place], [address] Hematocrit (Bld) [Volume fraction] 22.2 % Low 40-54 [facility] Comment on above: Performed By: #### L 100.0100 ####[facility] [address] [place], [address] Hemoglobin (Bld) [Mass/Vol] 7.5 g/dL Low 13.0-16.5 [facility] Comment on above: Performed By: #### L 100.0100 ####[facility] [address] [place], [address] IG% 1.100 High 0.0-0.9 [facility] Comment on above: Result Comment: IG% - Immature Granulocytes (promyelocytes, myelocytes andmetamyelocytes) > 1% indicates that a LEFT SHIFT is Present. Performed By: #### L 100.0100 ####[facility] [address] [place], [address] Lymphocytes/100 WBC (Bld) 12.9 % Low 19-41 [facility] Comment on above: Performed By: #### L 100.0100 ####[facility] [address] [place], [address] MCH (RBC) [Entitic mass] 30.0 pg Normal 27.0-32.0 [facility] Comment on above: Performed By: #### L 100.0100 ####[facility] [address] [place], [address] MCHC (RBC) [Mass/Vol] 33.8 g/dL Normal 32-36 [facility] Comment on above: Performed By: #### L 100.0100 ####[facility] [address] [place], [address] MCV (RBC) [Entitic vol] 88.8 fL Normal 80-94 [facility] Comment on above: Performed By: #### L 100.0100 ####[facility] [address] [place], [address] Monocytes/100 WBC (Bld) 11.5 % High 0-10 [facility] Comment on above: Performed By: #### L 100.0100 ####[facility] [address] [place], [address] Neutrophils/100 WBC (Bld) 67.2 % Normal 47-70 [facility] Comment on above: Performed By: #### L 100.0100 ####[facility] [address] [place], [address] Nucleated RBC (Bld) [#/Vol] 0 10*3/uL Normal 0-5 [facility] Comment on above: Performed By: #### L 100.0100 ####[facility] [address] [place], [address] Platelet mean volume (Bld) [Entitic vol] 10.7 fL Normal 6.2-12.0 [facility] Comment on above: Performed By: #### L 100.0100 ####[facility] [address] [place], [address] Platelets (Bld) [#/Vol] 109 10*3/uL Low 150-450 [facility] Comment on above: Performed By: #### L 100.0100 ####[facility] [address] [place], [address] RBC (Bld) [#/Vol] 2.50 10*6/uL Low 4.6-6.2 [facility] Comment on above: Performed By: #### L 100.0100 ####[facility] [address] [place], [address] RDW SD 58.8 fl High 35.1-43.9 [facility] Comment on above: Performed By: #### L 100.0100 ####[facility] [address] [place], [address] WBC (Bld) [#/Vol] 8.4 10*3/uL Normal 4.4-11.0 [facility] Comment on above: Performed By: #### L 100.0100 ####[facility] [address] [place], [address] Bedside Glucoseon 01-16-2025 FINGERSTICK GLU 227 mg/dL High 74-106 [facility] Comment on above: Result Comment: BRISA GEMENT OF PATIENT CARE PER NURSING PROTOCOL Performed By: #### L 501.080 ####[facility] [address] [place], [address] FINGERSTICK GLU 202 mg/dL High 74-106 [facility] Comment on above: Result Comment: BRISA GEMENT OF PATIENT CARE PER NURSING PROTOCOL Performed By: #### L 501.080 ####[facility] [address] [place], [address] FINGERSTICK GLU 177 mg/dL High 74-106 [facility] Comment on above: Result Comment: BRISA GEMENT OF PATIENT CARE PER NURSING PROTOCOL Performed By: #### L 501.080 ####[facility] [address] [place], [address] FINGERSTICK GLU 173 mg/dL High 74-106 [facility] Comment on above: Result Comment: BRISA GEMENT OF PATIENT CARE PER NURSING PROTOCOL Performed By: #### L 501.080 ####[facility] [address] [place], [address] CBC W/Diff, Automatedon 06-08 08-2024 Absolute Lymph 1.16 X10 3/uL Normal 0.83-4.51 [facility] Comment on above: Performed By: #### L 100.0100 ####[facility] [address] [place], [address] Absolute Neut 5.2 X10 3/uL Normal 2.0-7.7 [facility] Comment on above: Performed By: #### L 100.0100 ####[facility] [address] [place], [address] Basophils/100 WBC (Bld) 0.4 % Normal 0-1 [facility] Comment on above: Performed By: #### L 100.0100 ####[facility] [address] [place], [address] Eosinophils/100 WBC (Bld) 6.5 % High 0-5 [facility] Comment on above: Performed By: #### L 100.0100 ####[facility] [address] [place], [address] Erythrocyte distribution width (RBC) [Ratio] 18.5 % High 11.6-14.6 [facility] Comment on above: Performed By: #### L 100.0100 ####[facility] [address] [place], [address] Hematocrit (Bld) [Volume fraction] 22.8 % Low 40-54 [facility] Comment on above: Performed By: #### L 100.0100 ####[facility] [address], [address] Hemoglobin (Bld) [Mass/Vol] 7.8 g/dL Low 13.0-16.5 [facility] Comment on above: Performed By: #### L 100.0100 ####[facility] [address] [place], [address] IG% 0.900 Normal 0.0-0.9 [facility] Comment on above: Result Comment: IG% - Immature Granulocytes (promyelocytes, myelocytes andmetamyelocytes) > 1% indicates that a LEFT SHIFT is Present. Performed By: #### L 100.0100 ####[facility] [address] [place], [address] Lymphocytes/100 WBC (Bld) 14.6 % Low 19-41 [facility] Comment on above: Performed By: #### L 100.0100 ####[facility] [address] [place], [address] MCH (RBC) [Entitic mass] 30.2 pg Normal 27.0-32.0 [facility] Comment on above: Performed By: #### L 100.0100 ####[facility] [address] [place], [address] MCHC (RBC) [Mass/Vol] 34.2 g/dL Normal 32-36 [facility] Comment on above: Performed By: #### L 100.0100 ####[facility] [address] [place], [address] MCV (RBC) [Entitic vol] 88.4 fL Normal 80-94 [facility] Comment on above: Performed By: #### L 100.0100 ####[facility] [address] [place], [address] Monocytes/100 WBC (Bld) 12.7 % High 0-10 [facility] Comment on above: Performed By: #### L 100.0100 ####[facility] [address] [place], [address] Neutrophils/100 WBC (Bld) 64.9 % Normal 47-70 [facility] Comment on above: Performed By: #### L 100.0100 ####[facility] [address] [place], [address] Nucleated RBC (Bld) [#/Vol] 0 10*3/uL Normal 0-5 [facility] Comment on above: Performed By: #### L 100.0100 ####[facility] [address] [place], [address] Platelet mean volume (Bld) [Entitic vol] 10.8 fL Normal 6.2-12.0 [facility] Comment on above: Performed By: #### L 100.0100 ####[facility] [address] [place], [address] Platelets (Bld) [#/Vol] 111 10*3/uL Low 150-450 [facility] Comment on above: Performed By: #### L 100.0100 ####[facility] [address] [place], [address] RBC (Bld) [#/Vol] 2.58 10*6/uL Low 4.6-6.2 [facility] Comment on above: Performed By: #### L 100.0100 ####[facility] [address] [place], [address] RDW SD 57.9 fl High 35.1-43.9 [facility] Comment on above: Performed By: #### L 100.0100 ####[facility] [address] [place], [address] WBC (Bld) [#/Vol] 7.9 10*3/uL Normal 4.4-11.0 [facility] Comment on above: Performed By: #### L 100.0100 ####[facility] [address] [place], [address] Comprehensive Metabolic Prof il 01-16-2025 Albumin [Mass/Vol] 2.2 g/dL Low 3.5-5.0 [facility] Comment on above: Performed By: #### L 500.4050 ####[facility] [address] [place], [address] Albumin/Globulin [Mass ratio] 0.9 {ratio} Normal 0.9-2.4 [facility] Comment on above: Performed By: #### L 500.4050 ####[facility] [address] [place], [address] ALK PHOS 247 U/L High 40-129 [facility] Comment on above: Performed By: #### L 500.4050 ####[facility] [address] [place], [address] ALT [Catalytic activity/Vol] 49 U/L High <=46 [facility] Comment on above: Performed By: #### L 500.4050 ####[facility] [address] [place], [address] AST [Catalytic activity/Vol] 51 U/L High <=37 [facility] Comment on above: Performed By: #### L 500.4050 ####[facility] [address] [place], [address] Bilirubin [Mass/Vol] 1.89 mg/dL High 0.00-1.30 [facility] Comment on above: Performed By: #### L 500.4050 ####[facility] [address] [place], [address] BUN/CRE 7.1 RATIO Low 10-20 [facility] Comment on above: Performed By: #### L 500.4050 ####[facility] [address] [place], [address] Calcium [Mass/Vol] 7.8 mg/dL Normal 7.6-11.0 [facility] Comment on above: Performed By: #### L 500.4050 ####[facility] [address] [place], [address] Chloride [Moles/Vol] 93 mmol/L Low 98-108 [facility] Comment on above: Performed By: #### L 500.4050 ####[facility] [address] [place], [address] CO2 [Moles/Vol] 31.1 mmol/L Normal 21.0-32.0 [facility] Comment on above: Performed By: #### L 500.4050 ####[facility] [address] [place], [address] Creatinine [Mass/Vol] 0.80 mg/dL Normal 0.70-1.20 [facility] Comment on above: Performed By: #### L 500.4050 ####[facility] [address] [place], [address] ECRCL 118.59 ml/min Normal 50-250 [facility] Comment on above: Performed By: #### L 500.4050 ####[facility] [address] [place], [address] GAP 7 Normal 5-15 [facility] Comment on above: Performed By: #### L 500.4050 ####[facility] [address] [place], [address] GFR/1.73 sq M.predicted among non-blacks MDRD (S/P/Bld) [Vol rate/Area] 103 mL/min/{1.73_m2} Normal >60 [facility] Comment on above: Result Comment: mL/m in/1.73m2 CKD-EPI Creatinine Equation (2020) Performed By: #### L 500.4050 ####[facility] [address] [place], [address] Globulin (S) [Mass/Vol] 2.5 g/dL Normal 2.2-4.2 [facility] Comment on above: Performed By: #### L 500.4050 ####[facility] [address], [address] Glucose [Mass/Vol] 174 mg/dL High 70-99 [facility] Comment on above: Performed By: #### L 500.4050 ####[facility] [address] [place], [address] Potassium [Moles/Vol] 3.3 mmol/L Normal 3.3-5.1 [facility] Comment on above: Performed By: #### L 500.4050 ####[facility] [address] [place], [address] Sodium [Moles/Vol] 132 mmol/L Low 133-145 [facility] Comment on above: Performed By: #### L 500.4050 ####[facility] [address] [place], [address] T PROT 4.8 g/dL Low 5.9-8.4 [facility] Comment on above: Performed By: #### L 500.4050 ####[facility] [address] [place], [address] Urea nitrogen [Mass/Vol] 6 mg/dL Normal 4-19 [facility] Comment on above: Performed By: #### L 500.4050 ####[facility] [address] [place], [address] Serum or plasma vancomycin m easurement (mass/volume)Ordered By: Cielo Tovar on 01-16-2025 Vancomycin [Mass/Vol] 7.7 ug/mL 0.0-15.0 [facility] Vancomycin, Random Levelon 0 01-16-2025 VANCO, RANDOM 7.7 ug/mL Normal 0.0-15.0 [facility] Comment on above: Result Comment: VANC OMYCIN STANDARD DRUG THERAPY: CRITICAL VALUE IS > 15.0 mg/LVANCOMYCIN HIGH INTENSITY THERAPY: CRITICAL VALUE IS > 20.0 mg/LPLEASE CONTACT PHARMACY SERVICES (#9222) FOR INTERPRETATIONOF RESULTS. THIS RESULT DOES NOT REPRESENT A PEAK OR TROUGHLEVEL FOR THIS DRUG. Performed By: #### L 501.8850 ####[facility] [address] [place], [address] Bedside Glucoseon 01-15-2025 FINGERSTICK GLU 237 mg/dL High [address] [place] [address] Comment on above: Result Comment: BRISA GEMENT OF PATIENT CARE PER NURSING PROTOCOL Performed By: #### L 501.080 ####[facility] [address] [place], [address] FINGERSTICK GLU 240 mg/dL High [address] [place] [address] Comment on above: Result Comment: BRISA GEMENT OF PATIENT CARE PER NURSING PROTOCOL Performed By: #### L 501.080 ####[facility] [address] [place], [address] FINGERSTICK GLU 221 mg/dL High [address] [place] [address] Comment on above: Result Comment: BRISA GEMENT OF PATIENT CARE PER NURSING PROTOCOL Performed By: #### L 501.080 ####[facility] [address] [place], [address] FINGERSTICK GLU 167 mg/dL High [address] [place] [address] Comment on above: Result Comment: BRISA GEMENT OF PATIENT CARE PER NURSING PROTOCOL Performed By: #### L 501.080 ####[facility] [address] [place], [address] FINGERSTICK GLU 173 mg/dL High [address] [place] [address] Comment on above: Result Comment: BRISA GEMENT OF PATIENT CARE PER NURSING PROTOCOL Performed By: #### L 501.080 ####[facility] [address] [place], [address] CBC W/Diff, Automatedon -08 07-2024 Absolute Lymph 1.06 X10 3/uL Normal 0.83-4.51 [facility] Comment on above: Performed By: #### L 100.0100, L500.4050 ####[facility] [address] [place], [address] Absolute Neut 5.3 X10 3/uL Normal 2.0-7.7 [facility] Comment on above: Performed By: #### L 100.0100, L500.4050 ####[facility] [address] [place], [address] Basophils/100 WBC (Bld) 0.5 % Normal 0-1 [facility] Comment on above: Performed By: #### L 100.0100, L500.4050 ####[facility] [address] [place], [address] Eosinophils/100 WBC (Bld) 6.1 % High 0-5 [facility] Comment on above: Performed By: #### L 100.0100, L500.4050 ####[facility] [address] [place], [address] Erythrocyte distribution width (RBC) [Ratio] 18.6 % High 11.6-14.6 [facility] Comment on above: Performed By: #### L 100.0100, L500.4050 ####[facility] [address] [place], [address] Hematocrit (Bld) [Volume fraction] 23.2 % Low 40-54 [facility] Comment on above: Performed By: #### L 100.0100, L500.4050 ####[facility] [address] [place], [address] Hemoglobin (Bld) [Mass/Vol] 7.9 g/dL Low 13.0-16.5 [facility] Comment on above: Performed By: #### L 100.0100, L500.4050 ####[facility] [address] [place], [address] IG% 1.000 High 0.0-0.9 [facility] Comment on above: Result Comment: IG% - Immature Granulocytes (promyelocytes, myelocytes andmetamyelocytes) > 1% indicates that a LEFT SHIFT is Present. Performed By: #### L 100.0100, L500.4050 ####[facility] [address] [place], [address] Lymphocytes/100 WBC (Bld) 13.2 % Low 19-41 [facility] Comment on above: Performed By: #### L 100.0100, L500.4050 ####[facility] [address] [place], [address] MCH (RBC) [Entitic mass] 29.8 pg Normal 27.0-32.0 [facility] Comment on above: Performed By: #### L 100.0100, L500.4050 ####[facility] [address] [place], [address] MCHC (RBC) [Mass/Vol] 34.1 g/dL Normal 32-36 [facility] Comment on above: Performed By: #### L 100.0100, L500.4050 ####[facility] [address] [place], [address] MCV (RBC) [Entitic vol] 87.5 fL Normal 80-94 [facility] Comment on above: Performed By: #### L 100.0100, L500.4050 ####[facility] [address] [place], [address] Monocytes/100 WBC (Bld) 13.6 % High 0-10 [facility] Comment on above: Performed By: #### L 100.0100, L500.4050 ####[facility] [address] [place], [address] Neutrophils/100 WBC (Bld) 65.6 % Normal 47-70 [facility] Comment on above: Performed By: #### L 100.0100, L500.4050 ####[facility] [address] [place], [address] Nucleated RBC (Bld) [#/Vol] 0 10*3/uL Normal 0-5 [facility] Comment on above: Performed By: #### L 100.0100, L500.4050 ####[facility] [address] [place], [address] Platelet mean volume (Bld) [Entitic vol] 11.0 fL Normal 6.2-12.0 [facility] Comment on above: Performed By: #### L 100.0100, L500.4050 ####[facility] [address] [place], [address] Platelets (Bld) [#/Vol] 118 10*3/uL Low 150-450 [facility] Comment on above: Performed By: #### L 100.0100, L500.4050 ####[facility] [address] [place], [address] RBC (Bld) [#/Vol] 2.65 10*6/uL Low 4.6-6.2 [facility] Comment on above: Performed By: #### L 100.0100, L500.4050 ####[facility] [address] [place], [address] RDW SD 58.1 fl High 35.1-43.9 [facility] Comment on above: Performed By: #### L 100.0100, L500.4050 ####[facility] [address] [place], [address] WBC (Bld) [#/Vol] 8.0 10*3/uL Normal 4.4-11.0 [facility] Comment on above: Performed By: #### L 100.0100, L500.4050 ####[facility] [address] [place], [address] Comprehensive Metabolic Prof ilon 01-15-2025 Albumin/Globulin [Mass ratio] 0.8 {ratio} Low 0.9-2.4 [facility] Comment on above: Performed By: #### L 100.0100, L500.4050 ####[facility] [address] [place], [address] ALK PHOS 275 U/L High 40-129 [facility] Comment on above: Performed By: #### L 100.0100, L500.4050 ####[facility] [address] [place], [address] ALT [Catalytic activity/Vol] 56 U/L High <=46 [facility] Comment on above: Performed By: #### L 100.0100, L500.4050 ####[facility] [address] [place], [address] AST [Catalytic activity/Vol] 64 U/L High <=37 [facility] Comment on above: Performed By: #### L 100.0100, L500.4050 ####[facility] [address] [place], [address] Bilirubin [Mass/Vol] 2.06 mg/dL High 0.00-1.30 [facility] Comment on above: Performed By: #### L 100.0100, L500.4050 ####[facility] [address] [place], [address] Calcium [Mass/Vol] 7.8 mg/dL Normal 7.6-11.0 [facility] Comment on above: Performed By: #### L 100.0100, L500.4050 ####[facility] [address] [place], [address] Chloride [Moles/Vol] 94 mmol/L Low 98-108 [facility] Comment on above: Performed By: #### L 100.0100, L500.4050 ####[facility] [address] [place], [address] CO2 [Moles/Vol] 26.7 mmol/L Normal 21.0-32.0 [facility] Comment on above: Performed By: #### L 100.0100, L500.4050 ####[facility] [address] [place], [address] GAP 9 Normal 5-15 [facility] Comment on above: Performed By: #### L 100.0100, L500.4050 ####[facility] [address] [place], [address] Potassium [Moles/Vol] 3.2 mmol/L Low 3.3-5.1 [facility] Comment on above: Performed By: #### L 100.0100, L500.4050 ####[facility] [address] [place], [address] Sodium [Moles/Vol] 130 mmol/L Low 133-145 [facility] Comment on above: Performed By: #### L 100.0100, L500.4050 ####[facility] [address] [place], [address] Albumin [Mass/Vol] 2.2 g/dL Low 3.5-5.0 [facility] Comment on above: Performed By: #### L 100.0100, L500.4050 ####[facility] [address] [place], [address] BUN/CRE 6.0 RATIO Low 10-20 [facility] Comment on above: Performed By: #### L 100.0100, L500.4050 ####[facility] [address] [place], [address] Creatinine [Mass/Vol] 0.82 mg/dL Normal 0.70-1.20 [facility] Comment on above: Performed By: #### L 100.0100, L500.4050 ####[facility] [address] [place], [address] ECRCL 115.58 ml/min Normal 50-250 [facility] Comment on above: Performed By: #### L 100.0100, L500.4050 ####[facility] [address] [place], [address] GFR/1.73 sq M.predicted among non-blacks MDRD (S/P/Bld) [Vol rate/Area] 102 mL/min/{1.73_m2} Normal >60 [facility] Comment on above: Result Comment: mL/m in/1.73m2 CKD-EPI Creatinine Equation (2020) Performed By: #### L 100.0100, L500.4050 ####[facility] [address] [place], [address] Globulin (S) [Mass/Vol] 2.7 g/dL Normal 2.2-4.2 [facility] Comment on above: Performed By: #### L 100.0100, L500.4050 ####[facility] [address] [place], [address] Glucose [Mass/Vol] 178 mg/dL High 70-99 [facility] Comment on above: Performed By: #### L 100.0100, L500.4050 ####[facility] [address] [place], [address] T PROT 4.9 g/dL Low 5.9-8.4 [facility] Comment on above: Performed By: #### L 100.0100, L500.4050 ####[facility] [address] [place], [address] Urea nitrogen [Mass/Vol] 5 mg/dL Normal 4-19 [facility] Comment on above: Performed By: #### L 100.0100, L500.4050 ####[facility] [address] [place], [address] Vancomycin, Random Levelon 0 - VANCO, RANDOM 20.7 ug/mL High 0.0-15.0 [facility] Comment on above: Result Comment: VANC OMYCIN STANDARD DRUG THERAPY: CRITICAL VALUE IS > 15.0 mg/LVANCOMYCIN HIGH INTENSITY THERAPY: CRITICAL VALUE IS > 20.0 mg/LPLEASE CONTACT PHARMACY SERVICES (#3252) FOR INTERPRETATIONOF RESULTS. THIS RESULT DOES NOT REPRESENT A PEAK OR TROUGHLEVEL FOR THIS DRUG. Performed By: #### L 501.8850 ####[facility] [address] [place], [address] Bedside Glucoseon 01-14-2025 FINGERSTICK GLU 194 mg/dL High 74-106 [facility] Comment on above: Result Comment: BRISA GEMENT OF PATIENT CARE PER NURSING PROTOCOL Performed By: #### L 501.080 ####[facility] [address] [place], [address] FINGERSTICK GLU 261 mg/dL High 74-106 [facility] Comment on above: Result Comment: BRISA GEMENT OF PATIENT CARE PER NURSING PROTOCOL Performed By: #### L 501.080 ####[facility] [address] [place], [address] FINGERSTICK GLU 263 mg/dL High 74-106 [facility] Comment on above: Result Comment: BRISA GEMENT OF PATIENT CARE PER NURSING PROTOCOL Performed By: #### L 501.080 ####[facility] [address] [place], [address] CBC W/Diff, Automatedon 06-1 Absolute Lymph 1.09 X10 3/uL Normal 0.83-4.51 [facility] Comment on above: Performed By: #### L 100.0100, L500.4050 ####[facility] [address] [place], [address] Absolute Neut 5.3 X10 3/uL Normal 2.0-7.7 [facility] Comment on above: Performed By: #### L 100.0100, L500.4050 ####[facility] [address] [place], [address] Basophils/100 WBC (Bld) 0.4 % Normal 0-1 [facility] Comment on above: Performed By: #### L 100.0100, L500.4050 ####[facility] [address] [place], [address] Eosinophils/100 WBC (Bld) 5.5 % High 0-5 [facility] Comment on above: Performed By: #### L 100.0100, L500.4050 ####[facility] [address] [place], [address] Erythrocyte distribution width (RBC) [Ratio] 18.5 % High 11.6-14.6 [facility] Comment on above: Performed By: #### L 100.0100, L500.4050 ####[facility] [address] [place], [address] Hematocrit (Bld) [Volume fraction] 23.2 % Low 40-54 [facility] Comment on above: Performed By: #### L 100.0100, L500.4050 ####[facility] [address] [place], [address] Hemoglobin (Bld) [Mass/Vol] 7.8 g/dL Low 13.0-16.5 [facility] Comment on above: Performed By: #### L 100.0100, L500.4050 ####[facility] [address] [place], [address] IG% 1.000 High 0.0-0.9 [facility] Comment on above: Result Comment: IG% - Immature Granulocytes (promyelocytes, myelocytes andmetamyelocytes) > 1% indicates that a LEFT SHIFT is Present. Performed By: #### L 100.0100, L500.4050 ####[facility] [address] [place], [address] Lymphocytes/100 WBC (Bld) 13.5 % Low 19-41 [facility] Comment on above: Performed By: #### L 100.0100, L500.4050 ####[facility] [address] [place], [address] MCH (RBC) [Entitic mass] 29.5 pg Normal 27.0-32.0 [facility] Comment on above: Performed By: #### L 100.0100, L500.4050 ####[facility] [address] [place], [address] MCHC (RBC) [Mass/Vol] 33.6 g/dL Normal 32-36 [facility] Comment on above: Performed By: #### L 100.0100, L500.4050 ####[facility] [address] [place], [address] MCV (RBC) [Entitic vol] 87.9 fL Normal 80-94 [facility] Comment on above: Performed By: #### L 100.0100, L500.4050 ####[facility] [address] [place], [address] Monocytes/100 WBC (Bld) 14.3 % High 0-10 [facility] Comment on above: Performed By: #### L 100.0100, L500.4050 ####[facility] [address] [place], [address] Neutrophils/100 WBC (Bld) 65.3 % Normal 47-70 [facility] Comment on above: Performed By: #### L 100.0100, L500.4050 ####[facility] [address] [place], [address] Nucleated RBC (Bld) [#/Vol] 0 10*3/uL Normal 0-5 [facility] Comment on above: Performed By: #### L 100.0100, L500.4050 ####[facility] [address] [place], [address] Platelet mean volume (Bld) [Entitic vol] 11.8 fL Normal 6.2-12.0 [facility] Comment on above: Performed By: #### L 100.0100, L500.4050 ####[facility] [address] [place], [address] Platelets (Bld) [#/Vol] 121 10*3/uL Low 150-450 [facility] Comment on above: Performed By: #### L 100.0100, L500.4050 ####[facility] [address] [place], [address] RBC (Bld) [#/Vol] 2.64 10*6/uL Low 4.6-6.2 [facility] Comment on above: Performed By: #### L 100.0100, L500.4050 ####[facility] [address] [place], [address] RDW SD 58.4 fl High 35.1-43.9 [facility] Comment on above: Performed By: #### L 100.0100, L500.4050 ####[facility] [address] [place], [address] WBC (Bld) [#/Vol] 8.1 10*3/uL Normal 4.4-11.0 [facility] Comment on above: Performed By: #### L 100.0100, L500.4050 ####[facility] [address] [place], [address] Chest without Contraston Chest without Contrast Normal [facility] Comprehensive Metabolic Prof ilon 01-14-2025 Albumin [Mass/Vol] 2.4 g/dL Low 3.5-5.0 [facility] Comment on above: Performed By: #### L 100.0100, L500.4050 ####[facility] [address] [place], [address] Albumin/Globulin [Mass ratio] 0.9 {ratio} Normal 0.9-2.4 [facility] Comment on above: Performed By: #### L 100.0100, L500.4050 ####[facility] [address] [place], [address] ALK PHOS 293 U/L High 40-129 [facility] Comment on above: Performed By: #### L 100.0100, L500.4050 ####[facility] [address] [place], [address] ALT [Catalytic activity/Vol] 61 U/L High <=46 [facility] Comment on above: Performed By: #### L 100.0100, L500.4050 ####[facility] [address] [place], [address] AST [Catalytic activity/Vol] 83 U/L High <=37 [facility] Comment on above: Performed By: #### L 100.0100, L500.4050 ####[facility] [address] [place], [address] Bilirubin [Mass/Vol] 2.64 mg/dL High 0.00-1.30 [facility] Comment on above: Performed By: #### L 100.0100, L500.4050 ####[facility] [address] [place], [address] BUN/CRE 6.4 RATIO Low 10-20 [facility] Comment on above: Performed By: #### L 100.0100, L500.4050 ####[facility] [address] [place], [address] Calcium [Mass/Vol] 7.9 mg/dL Normal 7.6-11.0 [facility] Comment on above: Performed By: #### L 100.0100, L500.4050 ####[facility] [address] [place], [address] Chloride [Moles/Vol] 95 mmol/L Low 98-108 [facility] Comment on above: Performed By: #### L 100.0100, L500.4050 ####[facility] [address] [place], [address] CO2 [Moles/Vol] 25.1 mmol/L Normal 21.0-32.0 [facility] Comment on above: Performed By: #### L 100.0100, L500.4050 ####[facility] [address] [place], [address] Creatinine [Mass/Vol] 0.86 mg/dL Normal 0.70-1.20 [facility] Comment on above: Performed By: #### L 100.0100, L500.4050 ####[facility] [address] [place], [address] ECRCL 110.10 ml/min Normal 50-250 [facility] Comment on above: Performed By: #### L 100.0100, L500.4050 ####[facility] [address] [place], [address] GAP 11 Normal 5-15 [facility] Comment on above: Performed By: #### L 100.0100, L500.4050 ####[facility] [address] [place], [address] GFR/1.73 sq M.predicted among non-blacks MDRD (S/P/Bld) [Vol rate/Area] 100 mL/min/{1.73_m2} Normal >60 [facility] Comment on above: Result Comment: mL/m in/1.73m2 CKD-EPI Creatinine Equation (2020) Performed By: #### L 100.0100, L500.4050 ####[facility] [address] [place], [address] Globulin (S) [Mass/Vol] 2.5 g/dL Normal 2.2-4.2 [facility] Comment on above: Performed By: #### L 100.0100, L500.4050 ####[facility] [address] [place], [address] Glucose [Mass/Vol] 280 mg/dL High 70-99 [facility] Comment on above: Performed By: #### L 100.0100, L500.4050 ####[facility] [address] [place], [address] Potassium [Moles/Vol] 3.0 mmol/L Low 3.3-5.1 [facility] Comment on above: Performed By: #### L 100.0100, L500.4050 ####[facility] [address] [place], [address] Sodium [Moles/Vol] 131 mmol/L Low 133-145 [facility] Comment on above: Performed By: #### L 100.0100, L500.4050 ####[facility] [address] [place], [address] T PROT 4.9 g/dL Low 5.9-8.4 [facility] Comment on above: Performed By: #### L 100.0100, L500.4050 ####[facility] [address] [place], [address] Urea nitrogen [Mass/Vol] 6 mg/dL Normal 4-19 [facility] Comment on above: Performed By: #### L 100.0100, L500.4050 ####[facility] [address] [place], [address] Culture, Blood (WB)on 2024 CUB Blood cultures x2, f rom two different sites No growth in 5 days. Normal [facility] Comment on above: Performed By: #### M 200.1000 ####[facility] [address] [place], [address] Magnetic resonance imaging r eportOrdered By: Kenneth Barton on 01-14-2025 Study report [facility] Work Phone: PSA,Total- Diagnosticon 01-02 PSA, DIAGNOSTIC 0.65 ng/mL Normal 0.00-4.00 [facility] Comment on above: Result Comment: This test was performed using the [employer] tPSAmethod. Measured values of a patient??sample can varydepending on the testing procedure used. PSA valuesdetermined on patient samples by different testingprocedures cannot be used interchangeably. If there is achange in PSA assays while monitoring therapy, sequentialtesting should be performed to confirm baseline values. Performed By: #### L 501.9912 ####[facility] [address] [place], [address] Trough vancomycin levelOrder ed By: Cielo Tovar on 01-14-2025 Vancomycin trough [Mass/Vol] 21.4 ug/mL High 5.0-15.0 [facility] Vancomycin, Trough Levelon 0 01-14-2025 VANCO, TROUGH 21.4 ug/mL High 5.0-15.0 [facility] Comment on above: Order Comment: 1830 Result [...] therapy recommended for serious lifethreatening infections include:- Efrmvybvob-Wjnwcxxknris-Oxmnveryu (Ventilator/Healtcare Associated)-SepsisPLEASE CONTACT PHARMACY SERVICES (#7638) FOR INTERPRETATIONOF RESULTS. Performed By: #### L 501.8820 ####[facility] [address] [place], [address] BRCon 01-13-2025 Normal [facility] Comment on above: Result Comment: [id number] ON RC TRANSFUSED 01/13/25 1613 Performed By: #### B , BTS ####[facility] [address] [place], [address] Bedside Glucoseon 01-13-2025 FINGERSTICK GLU 272 mg/dL High [address] [place] [address] Comment on above: Result Comment: BRISA GEMENT OF PATIENT CARE PER NURSING PROTOCOL Performed By: #### L 501.080 ####[facility] [address] [place], [address] FINGERSTICK GLU 268 mg/dL High [address] [place] [address] Comment on above: Result Comment: BRISA GEMENT OF PATIENT CARE PER NURSING PROTOCOL Performed By: #### L 501.080 ####[facility] [address] [place], [address] FINGERSTICK GLU 249 mg/dL High [address] [place] [address] Comment on above: Result Comment: BRISA GEMENT OF PATIENT CARE PER NURSING PROTOCOL Performed By: #### L 501.080 ####[facility] [address] [place], [address] FINGERSTICK GLU 201 mg/dL High 74-106 [facility] Comment on above: Result Comment: BRISA MOROCHO OF PATIENT CARE PER NURSING PROTOCOL Performed By: #### L 501.080 ####[facility] [address] [place], [address] CBC W/Diff, Automatedon - Absolute Lymph 1.25 X10 3/uL Normal 0.83-4.51 [facility] Comment on above: Performed By: #### L 100.0100, L500.4050 ####[facility] [address] [place], [address] Absolute Neut 5.7 X10 3/uL Normal 2.0-7.7 [facility] Comment on above: Performed By: #### L 100.0100, L500.4050 ####[facility] [address] [place], [address] Basophils/100 WBC (Bld) 0.3 % Normal 0-1 [facility] Comment on above: Performed By: #### L 100.0100, L500.4050 ####[facility] [address] [place], [address] Eosinophils/100 WBC (Bld) 5.2 % High 0-5 [facility] Comment on above: Performed By: #### L 100.0100, L500.4050 ####[facility] [address] [place], [address] Erythrocyte distribution width (RBC) [Ratio] 18.6 % High 11.6-14.6 [facility] Comment on above: Performed By: #### L 100.0100, L500.4050 ####[facility] [address] [place], [address] Hematocrit (Bld) [Volume fraction] 21.0 % Low 40-54 [facility] Comment on above: Performed By: #### L 100.0100, L500.4050 ####[facility] [address] [place], [address] Hemoglobin (Bld) [Mass/Vol] 7.2 g/dL Low 13.0-16.5 [facility] Comment on above: Performed By: #### L 100.0100, L500.4050 ####[facility] [address] [place], [address] IG% 0.800 Normal 0.0-0.9 [facility] Comment on above: Result Comment: IG% - Immature Granulocytes (promyelocytes, myelocytes andmetamyelocytes) > 1% indicates that a LEFT SHIFT is Present. Performed By: #### L 100.0100, L500.4050 ####[facility] [address] [place], [address] Lymphocytes/100 WBC (Bld) 14.4 % Low 19-41 [facility] Comment on above: Performed By: #### L 100.0100, L500.4050 ####[facility] [address] [place], [address] MCH (RBC) [Entitic mass] 30.3 pg Normal 27.0-32.0 [facility] Comment on above: Performed By: #### L 100.0100, L500.4050 ####[facility] [address] [place], [address] MCHC (RBC) [Mass/Vol] 34.3 g/dL Normal 32-36 [facility] Comment on above: Performed By: #### L 100.0100, L500.4050 ####[facility] [address] [place], [address] MCV (RBC) [Entitic vol] 88.2 fL Normal 80-94 [facility] [place] Comment on above: Performed By: #### L 100.0100, L500.4050 ####[facility] [address] [place], [address] Monocytes/100 WBC (Bld) 13.7 % High 0-10 [facility] [place] Comment on above: Performed By: #### L 100.0100, L500.4050 ####[facility] [address] [place], [address] Neutrophils/100 WBC (Bld) 65.6 % Normal 47-70 [facility] Comment on above: Performed By: #### L 100.0100, L500.4050 ####[facility] [address] [place], [address] Nucleated RBC (Bld) [#/Vol] 0 10*3/uL Normal 0-5 [facility] Comment on above: Performed By: #### L 100.0100, L500.4050 ####[facility] [address] [place], [address] Platelet mean volume (Bld) [Entitic vol] 11.3 fL Normal 6.2-12.0 [facility] Comment on above: Performed By: #### L 100.0100, L500.4050 ####[facility] [address] [place], [address] Platelets (Bld) [#/Vol] 124 10*3/uL Low 150-450 [facility] Comment on above: Performed By: #### L 100.0100, L500.4050 ####[facility] [address] [place], [address] RBC (Bld) [#/Vol] 2.38 10*6/uL Low 4.6-6.2 [facility] Comment on above: Performed By: #### L 100.0100, L500.4050 ####[facility] [address] [place], [address] RDW SD 59.2 fl High 35.1-43.9 [facility] Comment on above: Performed By: #### L 100.0100, L500.4050 ####[facility] [address] [place], [address] WBC (Bld) [#/Vol] 8.7 10*3/uL Normal 4.4-11.0 [facility] Comment on above: Performed By: #### L 100.0100, L500.4050 ####[facility] [address] [place], [address] Comprehensive Metabolic Prof ilon 01-13-2025 Albumin [Mass/Vol] 2.3 g/dL Low 3.5-5.0 [facility] Comment on above: Performed By: #### L 100.0100, L500.4050 ####[facility] [address] [place], [address] Albumin/Globulin [Mass ratio] 0.9 {ratio} Normal 0.9-2.4 [facility] Comment on above: Performed By: #### L 100.0100, L500.4050 ####[facility] [address] [place], [address] ALK PHOS 306 U/L High 40-129 [facility] Comment on above: Performed By: #### L 100.0100, L500.4050 ####[facility] [address] [place], [address] ALT [Catalytic activity/Vol] 72 U/L High <=46 [facility] Comment on above: Performed By: #### L 100.0100, L500.4050 ####[facility] [address] [place], [address] AST [Catalytic activity/Vol] 107 U/L High <=37 [facility] Comment on above: Performed By: #### L 100.0100, L500.4050 ####[facility] [address] [place], [address] Bilirubin [Mass/Vol] 1.69 mg/dL High 0.00-1.30 [facility] Comment on above: Performed By: #### L 100.0100, L500.4050 ####[facility] [address] [place], [address] BUN/CRE 7.3 RATIO Low 10-20 [facility] Comment on above: Performed By: #### L 100.0100, L500.4050 ####[facility] [address] [place], [address] Calcium [Mass/Vol] 7.7 mg/dL Normal 7.6-11.0 [facility] Comment on above: Performed By: #### L 100.0100, L500.4050 ####[facility] [address] [place], [address] Chloride [Moles/Vol] 96 mmol/L Low 98-108 [facility] Comment on above: Performed By: #### L 100.0100, L500.4050 ####[facility] [address] [place], [address] CO2 [Moles/Vol] 25.5 mmol/L Normal 21.0-32.0 [facility] Comment on above: Performed By: #### L 100.0100, L500.4050 ####[facility] [address] [place], [address] Creatinine [Mass/Vol] 0.90 mg/dL Normal 0.70-1.20 [facility] Comment on above: Performed By: #### L 100.0100, L500.4050 ####[facility] [address] [place], [address] ECRCL 103.13 ml/min Normal 50-250 [facility] Comment on above: Performed By: #### L 100.0100, L500.4050 ####[facility] [address] [place], [address] GAP 10 Normal 5-15 [facility] Comment on above: Performed By: #### L 100.0100, L500.4050 ####[facility] [address] [place], [address] GFR/1.73 sq M.predicted among non-blacks MDRD (S/P/Bld) [Vol rate/Area] 99 mL/min/{1.73_m2} Normal >60 [facility] Comment on above: Result Comment: mL/m in/1.73m2 CKD-EPI Creatinine Equation (2020) Performed By: #### L 100.0100, L500.4050 ####[facility] [address] [place], [address] Globulin (S) [Mass/Vol] 2.6 g/dL Normal 2.2-4.2 [facility] Comment on above: Performed By: #### L 100.0100, L500.4050 ####[facility] [address] [place], [address] Glucose [Mass/Vol] 187 mg/dL High 70-99 [facility] Comment on above: Performed By: #### L 100.0100, L500.4050 ####[facility] [address] [place], [address] Potassium [Moles/Vol] 3.1 mmol/L Low 3.3-5.1 [facility] Comment on above: Performed By: #### L 100.0100, L500.4050 ####[facility] [address] [place], [address] Sodium [Moles/Vol] 132 mmol/L Low 133-145 [facility] Comment on above: Performed By: #### L 100.0100, L500.4050 ####[facility] [address] [place], [address] T PROT 4.9 g/dL Low 5.9-8.4 [facility] Comment on above: Performed By: #### L 100.0100, L500.4050 ####[facility] [address] [place], [address] Urea nitrogen [Mass/Vol] 7 mg/dL Normal 4-19 [facility] Comment on above: Performed By: #### L 100.0100, L500.4050 ####[facility] [address] [place], [address] Ferritinon 01-13-2025 Ferritin [Mass/Vol] 76 ng/mL Normal 37-417 [facility] Comment on above: Performed By: #### L 503.6550, L503.6030 ####[facility] [address] [place], [address] Iron measurement (mass/mass) Ordered By: Cielo Tovar on 01-13-2025 Iron (Unsp spec) [Mass/Mass] 110 ug/dL 65-175 [facility] Iron+Iron Binding Capacityon 01-13-2025 TIBC 211 ug/dL Low 250-450 [facility] Comment on above: Performed By: #### L 503.6550, L503.6030 ####[facility] [address] [place], [address] Magnetic resonance imaging r eportOrdered By: Jerry Osorio on 01-13-2025 Study report [facility] No Panel InformationOrdered By: Cielo Tovar on 01-13-2025 101 ug/dL Low 228-428 [facility] Serum or plasma ferritin wei surement (mass/volume)Ordered By: Cielo Tovar on 01-13-2025 Ferritin [Mass/Vol] 76 ng/mL 37-417 [facility] Serum or plasma iron saturat ion measurement (mass fraction)Ordered By: Cielo Tovar on 01-13-2025 Iron saturation [Mass fraction] 52.1 % 9-55 [facility] Spine Lumbar (Routine)on Spine Lumbar (Routine) Normal [facility] Spine Thoracic (Routine)on 0 01-13-2025 Spine Thoracic (Routine) Normal [facility] Type AND Screenon 01-13-2025 ABO and Rh group Nom (Bld) Blood group O Rh(D) positive Normal [facility] Comment on above: Order Comment: CMV N EG? NNumber of units to transfuse: 1Reason for Ordering Blood: AcuteAre the blood/blood products to be transfused? YIs the patient having/had surgery? NNWhen ReadyNYA Performed By: #### B RC, BTS ####[facility] [address] [place], [address] Vancomycin, Trough Levelon 0 01-13-2025 VANCO, TROUGH 19.8 ug/mL High 5.0-15.0 [facility] Comment on above: Order Comment: Comme nts: Trough to be drawn 30 mins prior to scheduled [id number] Result Comment: Eleazar mmended goal trough ranges [...] therapy recommended for serious lifethreatening infections include:- Lqjcmejrho-Nuoyndegcdzv-Zbrcbvrlq (Ventilator/Healtcare Associated)-SepsisPLEASE CONTACT PHARMACY SERVICES (#6118) FOR INTERPRETATIONOF RESULTS. Performed By: #### L 501.8820 ####[facility] [address] [place], [address] Bedside Glucoseon 01-12-2025 FINGERSTICK GLU 241 mg/dL High 74-106 [facility] Comment on above: Result Comment: BRISA MOROCHO OF PATIENT CARE PER NURSING PROTOCOL Performed By: #### L 501.080 ####[facility] [address] [place], [address] FINGERSTICK GLU 316 mg/dL High 74-106 [facility] Comment on above: Result Comment: BRISA GEMENT OF PATIENT CARE PER NURSING PROTOCOL Performed By: #### L 501.080 ####[facility] [address] [place], [address] FINGERSTICK GLU 224 mg/dL High 74-106 [facility] Comment on above: Result Comment: BRISA GEMENT OF PATIENT CARE PER NURSING PROTOCOL Performed By: #### L 501.080 ####[facility] [address] [place], [address] FINGERSTICK GLU 214 mg/dL High 74-106 [facility] Comment on above: Result Comment: BRISA GEMENT OF PATIENT CARE PER NURSING PROTOCOL Performed By: #### L 501.080 ####[facility] [address] [place], [address] CBC W/Diff, Automatedon 06-08 04-2024 Absolute Lymph 0.99 X10 3/uL Normal 0.83-4.51 [facility] Comment on above: Performed By: #### L 100.0100, L500.4050 ####[facility] [address] [place], [address] Absolute Neut 5.9 X10 3/uL Normal 2.0-7.7 [facility] Comment on above: Performed By: #### L 100.0100, L500.4050 ####[facility] [address] [place], [address] Basophils/100 WBC (Bld) 0.5 % Normal 0-1 [facility] Comment on above: Performed By: #### L 100.0100, L500.4050 ####[facility] [address] [place], [address] Eosinophils/100 WBC (Bld) 6.5 % High 0-5 [facility] Comment on above: Performed By: #### L 100.0100, L500.4050 ####[facility] [address] [place], [address] Erythrocyte distribution width (RBC) [Ratio] 18.4 % High 11.6-14.6 [facility] Comment on above: Performed By: #### L 100.0100, L500.4050 ####[facility] [address] [place], [address] Hematocrit (Bld) [Volume fraction] 21.8 % Low 40-54 [facility] Comment on above: Performed By: #### L 100.0100, L500.4050 ####[facility] [address] [place], [address] Hemoglobin (Bld) [Mass/Vol] 7.4 g/dL Low 13.0-16.5 [facility] Comment on above: Performed By: #### L 100.0100, L500.4050 ####[facility] [address] [place], [address] IG% 1.100 High 0.0-0.9 [facility] Comment on above: Result Comment: IG% - Immature Granulocytes (promyelocytes, myelocytes andmetamyelocytes) > 1% indicates that a LEFT SHIFT is Present. Performed By: #### L 100.0100, L500.4050 ####[facility] [address] [place], [address] Lymphocytes/100 WBC (Bld) 11.6 % Low 19-41 [facility] Comment on above: Performed By: #### L 100.0100, L500.4050 ####[facility] [address] [place], [address] MCH (RBC) [Entitic mass] 29.5 pg Normal 27.0-32.0 [facility] Comment on above: Performed By: #### L 100.0100, L500.4050 ####[facility] [address] [place], [address] MCHC (RBC) [Mass/Vol] 33.9 g/dL Normal 32-36 [facility] Comment on above: Performed By: #### L 100.0100, L500.4050 ####[facility] [address] [place], [address] MCV (RBC) [Entitic vol] 86.9 fL Normal 80-94 [facility] Comment on above: Performed By: #### L 100.0100, L500.4050 ####[facility] [address] [place], [address] Monocytes/100 WBC (Bld) 12.1 % High 0-10 [facility] Comment on above: Performed By: #### L 100.0100, L500.4050 ####[facility] [address] [place], [address] Neutrophils/100 WBC (Bld) 68.2 % Normal 47-70 [facility] Comment on above: Performed By: #### L 100.0100, L500.4050 ####[facility] [address] [place], [address] Nucleated RBC (Bld) [#/Vol] 0 10*3/uL Normal 0-5 [facility] Comment on above: Performed By: #### L 100.0100, L500.4050 ####[facility] [address] [place], [address] Platelet mean volume (Bld) [Entitic vol] 11.7 fL Normal 6.2-12.0 [facility] Comment on above: Performed By: #### L 100.0100, L500.4050 ####[facility] [address] [place], [address] Platelets (Bld) [#/Vol] 127 10*3/uL Low 150-450 [facility] Comment on above: Performed By: #### L 100.0100, L500.4050 ####[facility] [address] [place], [address] RBC (Bld) [#/Vol] 2.51 10*6/uL Low 4.6-6.2 [facility] Comment on above: Performed By: #### L 100.0100, L500.4050 ####[facility] [address] [place], [address] RDW SD 57.6 fl High 35.1-43.9 [facility] Comment on above: Performed By: #### L 100.0100, L500.4050 ####[facility] [address] [place], [address] WBC (Bld) [#/Vol] 8.6 10*3/uL Normal 4.4-11.0 [facility] Comment on above: Performed By: #### L 100.0100, L500.4050 ####[facility] [address] [place], [address] Comprehensive Metabolic Prof waon 01-12-2025 Albumin [Mass/Vol] 2.4 g/dL Low 3.5-5.0 [facility] Comment on above: Performed By: #### L 100.0100, L500.4050 ####[facility] [address] [place], [address] Albumin/Globulin [Mass ratio] 0.9 {ratio} Normal 0.9-2.4 [facility] Comment on above: Performed By: #### L 100.0100, L500.4050 ####[facility] [address] [place], [address] ALK PHOS 332 U/L High 40-129 [facility] Comment on above: Performed By: #### L 100.0100, L500.4050 ####[facility] [address] [place], [address] ALT [Catalytic activity/Vol] 82 U/L High <=46 [facility] Comment on above: Performed By: #### L 100.0100, L500.4050 ####[facility] [address] [place], [address] AST [Catalytic activity/Vol] 148 U/L High <=37 [facility] Comment on above: Performed By: #### L 100.0100, L500.4050 ####[facility] [address] [place], [address] Bilirubin [Mass/Vol] 1.95 mg/dL High 0.00-1.30 [facility] Comment on above: Performed By: #### L 100.0100, L500.4050 ####[facility] [address] [place], [address] BUN/CRE 10.5 RATIO Normal 10-20 [facility] Comment on above: Performed By: #### L 100.0100, L500.4050 ####[facility] [address] [place], [address] Calcium [Mass/Vol] 7.6 mg/dL Normal 7.6-11.0 [facility] Comment on above: Performed By: #### L 100.0100, L500.4050 ####[facility] [address] [place], [address] Chloride [Moles/Vol] 97 mmol/L Low 98-108 [facility] Comment on above: Performed By: #### L 100.0100, L500.4050 ####[facility] [address] [place], [address] CO2 [Moles/Vol] 24.4 mmol/L Normal 21.0-32.0 [facility] Comment on above: Performed By: #### L 100.0100, L500.4050 ####[facility] [address] [place], [address] Creatinine [Mass/Vol] 0.93 mg/dL Normal 0.70-1.20 [facility] Comment on above: Performed By: #### L 100.0100, L500.4050 ####[facility] [address] [place], [address] ECRCL 99.17 ml/min Normal 50-250 [facility] Comment on above: Performed By: #### L 100.0100, L500.4050 ####[facility] [address] [place], [address] GAP 9 Normal 5-15 [facility] Comment on above: Performed By: #### L 100.0100, L500.4050 ####[facility] [address] [place], [address] GFR/1.73 sq M.predicted among non-blacks MDRD (S/P/Bld) [Vol rate/Area] 95 mL/min/{1.73_m2} Normal >60 [facility] Comment on above: Result Comment: mL/m in/1.73m2 CKD-EPI Creatinine Equation (2020) Performed By: #### L 100.0100, L500.4050 ####[facility] [address] [place], [address] Globulin (S) [Mass/Vol] 2.7 g/dL Normal 2.2-4.2 [facility] Comment on above: Performed By: #### L 100.0100, L500.4050 ####[facility] [address] [place], [address] Glucose [Mass/Vol] 241 mg/dL High 70-99 [facility] Comment on above: Performed By: #### L 100.0100, L500.4050 ####[facility] [address] [place], [address] Potassium [Moles/Vol] 3.1 mmol/L Low 3.3-5.1 [facility] Comment on above: Performed By: #### L 100.0100, L500.4050 ####[facility] [address] [place], [address] Sodium [Moles/Vol] 130 mmol/L Low 133-145 [facility] Comment on above: Performed By: #### L 100.0100, L500.4050 ####[facility] [address] [place], [address] T PROT 5.0 g/dL Low 5.9-8.4 [facility] Comment on above: Performed By: #### L 100.0100, L500.4050 ####[facility] [address] [place], [address] Urea nitrogen [Mass/Vol] 10 mg/dL Normal 4-19 [facility] Comment on above: Performed By: #### L 100.0100, L500.4050 ####[facility] [address] [place], [address] Urine Cultureon 01-12-2025 URC Urine Culture Urine Culture Yeast, not Mary albicans [place] Count 25,000-50,000 Normal [facility] Comment on above: Performed By: #### M 100.2200 ####[facility] [address] [place], [address] Bedside Glucoseon 01-11-2025 FINGERSTICK GLU 258 mg/dL High 74-106 [facility] Comment on above: Result Comment: BRISA GEMENT OF PATIENT CARE PER NURSING PROTOCOL Performed By: #### L 501.080 ####[facility] [address], [address] FINGERSTICK GLU 298 mg/dL High 74-106 [facility] Comment on above: Result Comment: BRISA GEMENT OF PATIENT CARE PER NURSING PROTOCOL Performed By: #### L 501.080 ####[facility] [address], [address] FINGERSTICK GLU 268 mg/dL High 74-106 [facility] Comment on above: Result Comment: BRISA GEMENT OF PATIENT CARE PER NURSING PROTOCOL Performed By: #### L 501.080 ####[facility] [address] [place], [address] FINGERSTICK GLU 251 mg/dL High 74-106 [facility] Comment on above: Result Comment: BRISA GEMENT OF PATIENT CARE PER NURSING PROTOCOL Performed By: #### L 501.080 ####[facility] [address] [place], [address] CBC W/Diff, Automatedon 06-1 0-2025 Absolute Lymph 1.01 X10 3/uL Normal 0.83-4.51 [facility] Comment on above: Performed By: #### L 100.0100 ####[facility] [address] [place], [address] Absolute Neut 5.6 X10 3/uL Normal 2.0-7.7 [facility] Comment on above: Performed By: #### L 100.0100 ####[facility] [address] [place], [address] Basophils/100 WBC (Bld) 0.5 % Normal 0-1 [facility] Comment on above: Performed By: #### L 100.0100 ####[facility] [address] [place], [address] Eosinophils/100 WBC (Bld) 4.6 % Normal 0-5 [facility] Comment on above: Performed By: #### L 100.0100 ####[facility] [address] [place], [address] Erythrocyte distribution width (RBC) [Ratio] 18.6 % High 11.6-14.6 [facility] Comment on above: Performed By: #### L 100.0100 ####[facility] [address] [place], [address] Hematocrit (Bld) [Volume fraction] 21.8 % Low 40-54 [facility] Comment on above: Performed By: #### L 100.0100 ####[facility] [address] [place], [address] Hemoglobin (Bld) [Mass/Vol] 7.4 g/dL Low 13.0-16.5 [facility] Comment on above: Performed By: #### L 100.0100 ####[facility] [address] [place], [address] IG% 0.900 Normal 0.0-0.9 [facility] Comment on above: Result Comment: IG% - Immature Granulocytes (promyelocytes, myelocytes andmetamyelocytes) > 1% indicates that a LEFT SHIFT is Present. Performed By: #### L 100.0100 ####[facility] [address] [place], [address] Lymphocytes/100 WBC (Bld) 12.6 % Low 19-41 [facility] Comment on above: Performed By: #### L 100.0100 ####[facility] [address] [place], [address] MCH (RBC) [Entitic mass] 29.7 pg Normal 27.0-32.0 [facility] Comment on above: Performed By: #### L 100.0100 ####[facility] [address] [place], [address] MCHC (RBC) [Mass/Vol] 33.9 g/dL Normal 32-36 [facility] Comment on above: Performed By: #### L 100.0100 ####[facility] [address] [place], [address] MCV (RBC) [Entitic vol] 87.6 fL Normal 80-94 [facility] Comment on above: Performed By: #### L 100.0100 ####[facility] [address] [place], [address] Monocytes/100 WBC (Bld) 11.8 % High 0-10 [facility] Comment on above: Performed By: #### L 100.0100 ####[facility] [address] [place], [address] Neutrophils/100 WBC (Bld) 69.6 % Normal 47-70 [facility] Comment on above: Performed By: #### L 100.0100 ####[facility] [address] [place], [address] Nucleated RBC (Bld) [#/Vol] 0 10*3/uL Normal 0-5 [facility] Comment on above: Performed By: #### L 100.0100 ####[facility] [address] [place], [address] Platelet mean volume (Bld) [Entitic vol] 12.1 fL High 6.2-12.0 [facility] Comment on above: Performed By: #### L 100.0100 ####[facility] [address] [place], [address] Platelets (Bld) [#/Vol] 130 10*3/uL Low 150-450 [facility] Comment on above: Performed By: #### L 100.0100 ####[facility] [address] [place], [address] RBC (Bld) [#/Vol] 2.49 10*6/uL Low 4.6-6.2 [facility] Comment on above: Performed By: #### L 100.0100 ####[facility] [address] [place], [address] RDW SD 56.7 fl High 35.1-43.9 [facility] Comment on above: Performed By: #### L 100.0100 ####[facility] [address] [place], [address] WBC (Bld) [#/Vol] 8.0 10*3/uL Normal 4.4-11.0 [facility] Comment on above: Performed By: #### L 100.0100 ####[facility] [address] [place], [address] Absolute Neut Normal 2.0-7.7 [facility] Comment on above: Result Comment: This specimen has been REJECTED due to Laboratory criteria:Clotted.DSCOTT has been notified of need of recollection.01/11/25555 V[facility] [place] Performed By: #### L 100.0100, L500.4050 ####[facility] [address] [place], [address] HCT Normal 40-54 [facility] Comment on above: Result Comment: This specimen has been REJECTED due to Laboratory criteria:Clotted.DSCOTT has been notified of need of recollection.01/11/25555 [facility] [place] Performed By: #### L 100.0100, L500.4050 ####[facility] [address] [place], [address] HGB Normal 13.0-16.5 [facility] Comment on above: Result Comment: This specimen has been REJECTED due to Laboratory criteria:Clotted.DSCOTT has been notified of need of recollection.01/11/25555 Vitaliy Lillie Performed By: #### L 100.0100, L500.4050 ####[facility] [address] [place], [address] MCH Normal 27.0-32.0 [facility] Comment on above: Result Comment: This specimen has been REJECTED due to Laboratory criteria:Clotted.DSCOTT has been notified of need of recollection.01/11/25555 Vitaliy Lillie Performed By: #### L 100.0100, L500.4050 ####[facility] [address] [place], [address] MCHC Normal 32-36 [facility] Comment on above: Result Comment: This specimen has been REJECTED due to Laboratory criteria:Clotted.DSCOTT has been notified of need of recollection.01/11/25555 [facility] [place] Performed By: #### L 100.0100, L500.4050 ####[facility] [address] [place], [address] MCV Normal 80-94 [facility] Comment on above: Result Comment: This specimen has been REJECTED due to Laboratory criteria:Clotted.DSCOTT has been notified of need of recollection.01/11/25555 Vitaliy Lillie Performed By: #### L 100.0100, L500.4050 ####[facility] [address] [place], [address] NEUT% Normal 47-70 [facility] Comment on above: Result Comment: This specimen has been REJECTED due to Laboratory criteria:Clotted.DSCOTT has been notified of need of recollection.01/11/25555 [facility] [place] Performed By: #### L 100.0100, L500.4050 ####[facility] [address] [place], [address] PLT Normal 150-450 [facility] Comment on above: Result Comment: This specimen has been REJECTED due to Laboratory criteria:Clotted.DSCOTT has been notified of need of recollection.01/11/25555 Vitaliy Lillie Performed By: #### L 100.0100, L500.4050 ####[facility] [address] [place], [address] RBC Normal 4.6-6.2 [facility] Comment on above: Result Comment: This specimen has been REJECTED due to Laboratory criteria:Clotted.DSCOTT has been notified of need of recollection.01/11/25 [facility] Vitaliy Lillie Performed By: #### L 100.0100, L500.4050 ####[facility] [address] [place], [address] RDW CV Normal 11.6-14.6 [facility] Comment on above: Result Comment: This specimen has been REJECTED due to Laboratory criteria:Clotted.DSCOTT has been notified of need of recollection.01/11/25 Vitaliy Lillie Performed By: #### L 100.0100, L500.4050 ####[facility] [address] [place], [address] RDW SD Normal 35.1-43.9 [facility] Comment on above: Result Comment: This specimen has been REJECTED due to Laboratory criteria:Clotted.DSCOTT has been notified of need of recollection.01/11/25 Vitaliy Lillie Performed By: #### L 100.0100, L500.4050 ####[facility] [address] [place], [address] WBC Normal 4.4-11.0 [facility] Comment on above: Result Comment: This specimen has been REJECTED due to Laboratory criteria:Clotted.DSCOTT has been notified of need of recollection.01/11/25 [facility] [place] Performed By: #### L 100.0100, L500.4050 ####[facility] [address] [place], [address] Comprehensive Metabolic Prof ilon 01-11-2025 Albumin [Mass/Vol] 2.2 g/dL Low 3.5-5.0 [facility] Comment on above: Performed By: #### L 100.0100, L500.4050 ####[facility] [address] [place], [address] Albumin/Globulin [Mass ratio] 0.8 {ratio} Low 0.9-2.4 [facility] Comment on above: Performed By: #### L 100.0100, L500.4050 ####[facility] [address] [place], [address] ALK PHOS 314 U/L High 40-129 [facility] Comment on above: Performed By: #### L 100.0100, L500.4050 ####[facility] [address] [place], [address] ALT [Catalytic activity/Vol] 66 U/L High <=46 [facility] Comment on above: Performed By: #### L 100.0100, L500.4050 ####[facility] [address] [place], [address] AST [Catalytic activity/Vol] 137 U/L High <=37 [facility] Comment on above: Result Comment: Hemo lysis present, Results??could be affected.?? Performed By: #### L 100.0100, L500.4050 ####[facility] [address] [place], [address] Bilirubin [Mass/Vol] 2.05 mg/dL High 0.00-1.30 [facility] Comment on above: Performed By: #### L 100.0100, L500.4050 ####[facility] [address] [place], [address] BUN/CRE 13.4 RATIO Normal 10-20 [facility] Comment on above: Performed By: #### L 100.0100, L500.4050 ####[facility] [address] [place], [address] Calcium [Mass/Vol] 7.6 mg/dL Normal 7.6-11.0 [facility] Comment on above: Performed By: #### L 100.0100, L500.4050 ####[facility] [address] [place], [address] Chloride [Moles/Vol] 99 mmol/L Normal 98-108 [facility] Comment on above: Performed By: #### L 100.0100, L500.4050 ####[facility] [address] [place], [address] CO2 [Moles/Vol] 17.3 mmol/L Low 21.0-32.0 [facility] Comment on above: Performed By: #### L 100.0100, L500.4050 ####[facility] [address] [place], [address] Creatinine [Mass/Vol] 1.18 mg/dL Normal 0.70-1.20 [facility] Comment on above: Performed By: #### L 100.0100, L500.4050 ####[facility] [address] [place], [address] ECRCL 78.27 ml/min Normal 50-250 [facility] Comment on above: Performed By: #### L 100.0100, L500.4050 ####[facility] [address] [place], [address] GAP 12 Normal 5-15 [facility] Comment on above: Performed By: #### L 100.0100, L500.4050 ####[facility] [address] [place], [address] GFR/1.73 sq M.predicted among non-blacks MDRD (S/P/Bld) [Vol rate/Area] 72 mL/min/{1.73_m2} Normal >60 [facility] Comment on above: Result Comment: mL/m in/1.73m2 CKD-EPI Creatinine Equation (2020) Performed By: #### L 100.0100, L500.4050 ####[facility] [address] [place], [address] Globulin (S) [Mass/Vol] 2.8 g/dL Normal 2.2-4.2 [facility] Comment on above: Performed By: #### L 100.0100, L500.4050 ####[facility] [address] [place], [address] Glucose [Mass/Vol] 275 mg/dL High 70-99 [facility] Comment on above: Performed By: #### L 100.0100, L500.4050 ####[facility] [address] [place], [address] Potassium [Moles/Vol] 3.5 mmol/L Normal 3.3-5.1 [facility] Comment on above: Result Comment: Hemo lysis present, Results??could be affected.?? Performed By: #### L 100.0100, L500.4050 ####[facility] [address] [place], [address] Sodium [Moles/Vol] 129 mmol/L Low 133-145 [facility] Comment on above: Performed By: #### L 100.0100, L500.4050 ####[facility] [address] [place], [address] T PROT 5.0 g/dL Low 5.9-8.4 [facility] Comment on above: Performed By: #### L 100.0100, L500.4050 ####[facility] [address] [place], [address] Urea nitrogen [Mass/Vol] 16 mg/dL Normal 4-19 [facility] Comment on above: Performed By: #### L 100.0100, L500.4050 ####[facility] [address] [place], [place], [id number] Consultation - Surgicalon Consultation - Surgical Normal W [facility] Vancomycin, Random Levelon 0 01-11-2025 VANCO, RANDOM 14.8 ug/mL Normal 0.0-15.0 [facility] Comment on above: Result Comment: VANC OMYCIN STANDARD DRUG THERAPY: CRITICAL VALUE IS > 15.0 mg/LVANCOMYCIN HIGH INTENSITY THERAPY: CRITICAL VALUE IS > 20.0 mg/LPLEASE CONTACT PHARMACY SERVICES (#3756) FOR INTERPRETATIONOF RESULTS. THIS RESULT DOES NOT REPRESENT A PEAK OR TROUGHLEVEL FOR THIS DRUG. Performed By: #### L 501.8850 ####[facility] [address] [place], [place], [id number] Vancomycin, Trough Levelon 0 01-11-2025 VANCO, TROUGH 21.8 ug/mL High 5.0-15.0 [facility] Comment on above: Order Comment: Comme nts: DRAW 30 MIN PRIOR TO [id number] Result Comment: Eleazar mmended goal trough ranges [...] therapy recommended for serious lifethreatening infections include:- Vvkgplmgdf-Nzqybgihqaqi-Jukezudjv (Ventilator/Healtcare Associated)-SepsisPLEASE CONTACT PHARMACY SERVICES (#8274) FOR INTERPRETATIONOF RESULTS. Performed By: #### L 501.8820 ####[facility] [address] [place], [place], [id number] Bedside Glucoseon 01-10-2025 FINGERSTICK GLU 193 mg/dL High 74-106 [facility] Comment on above: Result Comment: BRISA GEMENT OF PATIENT CARE PER NURSING PROTOCOL Performed By: #### L 501.080 ####[facility] [address] [place], [address] FINGERSTICK GLU 190 mg/dL High 74-106 [facility] Comment on above: Result Comment: BRISA GEMENT OF PATIENT CARE PER NURSING PROTOCOL Performed By: #### L 501.080 ####[facility] [address] [place], [address] FINGERSTICK GLU 195 mg/dL High 74-106 [facility] Comment on above: Result Comment: BRISA GEMENT OF PATIENT CARE PER NURSING PROTOCOL Performed By: #### L 501.080 ####[facility] [address] [place], [address] CBC W/Diff, Automatedon 06-0 9-2024 Absolute Lymph 0.85 X10 3/uL Normal 0.83-4.51 [facility] Comment on above: Order Comment: REDRA W. PREVIOUS SPECIMEN REJECTED DUE TOCONTAMINATION. 01/10/25410 Eliazar R Mancia. Performed By: #### L 100.0100 ####[facility] [address] [place], [address] Absolute Neut 7.3 X10 3/uL Normal 2.0-7.7 [facility] Comment on above: Order Comment: REDRA W. PREVIOUS SPECIMEN REJECTED DUE TOCONTAMINATION. 01/10/25410 Eliazar R Mancia. Performed By: #### L 100.0100 ####[facility] [address] [place], [address] Basophils/100 WBC (Bld) 0.5 % Normal 0-1 [facility] Comment on above: Order Comment: REDRA W. PREVIOUS SPECIMEN REJECTED DUE TOCONTAMINATION. 01/10/25410 Eliazar R Mancia. Performed By: #### L 100.0100 ####[facility] [address] [place], [address] Eosinophils/100 WBC (Bld) 5.9 % High 0-5 [facility] Comment on above: Order Comment: REDRA W. PREVIOUS SPECIMEN REJECTED DUE TOCONTAMINATION. 01/10/25410 Eliazar R Mancia. Performed By: #### L 100.0100 ####[facility] [address] [place], [address] Erythrocyte distribution width (RBC) [Ratio] 18.7 % High 11.6-14.6 [facility] Comment on above: Order Comment: REDRA W. PREVIOUS SPECIMEN REJECTED DUE TOCONTAMINATION. 01/10/25410 Eliazar R Mancia. Performed By: #### L 100.0100 ####[facility] [address] [place], [address] Hematocrit (Bld) [Volume fraction] 23.1 % Low 40-54 [facility] Comment on above: Order Comment: REDRA W. PREVIOUS SPECIMEN REJECTED DUE TOCONTAMINATION. 01/10/25410 Eliazar R Mancia. Performed By: #### L 100.0100 ####[facility] [address] [place], [address] Hemoglobin (Bld) [Mass/Vol] 7.4 g/dL Low 13.0-16.5 [facility] Comment on above: Order Comment: REDRA W. PREVIOUS SPECIMEN REJECTED DUE TOCONTAMINATION. 01/10/25410 Eliazar R Mancia. Performed By: #### L 100.0100 ####[facility] [address] [place], [address] IG% 0.500 Normal 0.0-0.9 [facility] Comment on above: Order Comment: REDRA W. PREVIOUS SPECIMEN REJECTED DUE TOCONTAMINATION. 01/10/25410 Eliazar R Mancia. Result Comment: IG% - Immature Granulocytes (promyelocytes, myelocytes andmetamyelocytes) > 1% indicates that a LEFT SHIFT is Present. Performed By: #### L 100.0100 ####[facility] [address] [place], [address] Lymphocytes/100 WBC (Bld) 8.8 % Low 19-41 [facility] Comment on above: Order Comment: REDRA W. PREVIOUS SPECIMEN REJECTED DUE TOCONTAMINATION. 01/10/25410 Eliazar R Mancia. Performed By: #### L 100.0100 ####[facility] [address] [place], [address] MCH (RBC) [Entitic mass] 29.2 pg Normal 27.0-32.0 [facility] Comment on above: Order Comment: REDRA W. PREVIOUS SPECIMEN REJECTED DUE TOCONTAMINATION. 01/10/25410 Eliazar R Mancia. Performed By: #### L 100.0100 ####[facility] [address] [place], [address] MCHC (RBC) [Mass/Vol] 32.0 g/dL Normal 32-36 [facility] Comment on above: Order Comment: REDRA W. PREVIOUS SPECIMEN REJECTED DUE TOCONTAMINATION. 01/10/25410 Eliazar R Mancia. Performed By: #### L 100.0100 ####[facility] [address] [place], [address] MCV (RBC) [Entitic vol] 91.3 fL Normal 80-94 [facility] Comment on above: Order Comment: REDRA W. PREVIOUS SPECIMEN REJECTED DUE TOCONTAMINATION. 01/10/25410 Eliazar R Mancia. Performed By: #### L 100.0100 ####[facility] [address] [place], [address] Monocytes/100 WBC (Bld) 8.2 % Normal 0-10 [facility] Comment on above: Order Comment: REDRA W. PREVIOUS SPECIMEN REJECTED DUE TOCONTAMINATION. 01/10/25410 Eliazar R Mancia. Performed By: #### L 100.0100 ####[facility] [address] [place], [address] Neutrophils/100 WBC (Bld) 76.1 % High 47-70 [facility] Comment on above: Order Comment: REDRA W. PREVIOUS SPECIMEN REJECTED DUE TOCONTAMINATION. 01/10/25410 Eliazar R Mancia. Performed By: #### L 100.0100 ####[facility] [address] [place], [address] Nucleated RBC (Bld) [#/Vol] 0 10*3/uL Normal 0-5 [facility] Comment on above: Order Comment: REDRA W. PREVIOUS SPECIMEN REJECTED DUE TOCONTAMINATION. 01/10/25410 Eliazar R Mancia. Performed By: #### L 100.0100 ####[facility] [address] [place], [address] Platelet mean volume (Bld) [Entitic vol] 12.3 fL High 6.2-12.0 [facility] Comment on above: Order Comment: REDRA W. PREVIOUS SPECIMEN REJECTED DUE TOCONTAMINATION. 01/10/25410 Eliazar R Mancia. Performed By: #### L 100.0100 ####[facility] [address] [place], [address] Platelets (Bld) [#/Vol] 110 10*3/uL Low 150-450 [facility] Comment on above: Order Comment: REDRA W. PREVIOUS SPECIMEN REJECTED DUE TOCONTAMINATION. 01/10/25410 Eliazar R Mancia. Performed By: #### L 100.0100 ####[facility] [address] [place], [address] RBC (Bld) [#/Vol] 2.53 10*6/uL Low 4.6-6.2 [facility] Comment on above: Order Comment: REDRA W. PREVIOUS SPECIMEN REJECTED DUE TOCONTAMINATION. 01/10/25410 Eliazar R Mancia. Performed By: #### L 100.0100 ####[facility] [address] [place], [address] RDW SD 60.1 fl High 35.1-43.9 [facility] Comment on above: Order Comment: REDRA W. PREVIOUS SPECIMEN REJECTED DUE TOCONTAMINATION. 01/10/25410 Eliazar Mancia. Performed By: #### L 100.0100 ####[facility] [address] [place], [address] WBC (Bld) [#/Vol] 9.6 10*3/uL Normal 4.4-11.0 [facility] Comment on above: Order Comment: REDRA W. PREVIOUS SPECIMEN REJECTED DUE TOCONTAMINATION. 01/10/25410 Eliazar Gusman Mancia. Performed By: #### L 100.0100 ####[facility] [address] [place], [address] DIFF INDICATED? SCAN CRITERIA MET Normal [facility] Comment on above: Result Comment: This specimen has been REJECTED due to Laboratory criteria:Contaminated/Leaked.MONIKA has been notified of need of recollection.01/10/25408 Eliazar Gusman Mancia Performed By: #### L 100.0100, L500.4050 ####[facility] [address] [place], [address] Hemoglobin (Bld) [Mass/Vol] 5.5 g/dL Invalid Interpretation Code 13.0-16.5 [facility] Comment on above: Result Comment: This specimen has been REJECTED due to Laboratory criteria:Contaminated/Leaked.MONIKA has been notified of need of recollection.01/10/25408 Eliazargonzalo ManciaCRITICAL VALUE CALLED TO PORTIA TAVAREZ (ICU)01/10/25 0336 Henry Calloway.RESULTS READ BACK BY SAME. Performed By: #### L 100.0100, L500.4050 ####[facility] [address] [place], [address] Absolute Lymph 4.28 X10 3/uL Normal 0.83-4.51 [facility] Comment on above: Result Comment: This specimen has been REJECTED due to Laboratory criteria:Contaminated/Leaked.[facility] has been notified of need of recollection.01/10/25408 Eliazar R Mancia Performed By: #### L 100.0100, L500.4050 ####[facility] [address] [place], [address] Absolute Neut 1.7 X10 3/uL Low 2.0-7.7 [facility] Comment on above: Result Comment: This specimen has been REJECTED due to Laboratory criteria:Contaminated/Leaked.[facility] has been notified of need of recollection.01/10/25408 Eliazar R Mancia Performed By: #### L 100.0100, L500.4050 ####[facility] [address] [place], [address] BASO# 0.01 X10 3/uL Normal [facility] Comment on above: Result Comment: This specimen has been REJECTED due to Laboratory criteria:Contaminated/Leaked.[facility] has been notified of need of recollection.01/10/25408 Eliazar R Mancia Performed By: #### L 100.0100, L500.4050 ####[facility] [address] [place], [address] Basophils/100 WBC (Bld) 0.2 % Normal 0-1 [facility] Comment on above: Result Comment: This specimen has been REJECTED due to Laboratory criteria:Contaminated/Leaked.[facility] has been notified of need of recollection.01/10/25408 Eliazar R Mancia Performed By: #### L 100.0100, L500.4050 ####[facility] [address] [place], [address] EOS# 0.15 X10 3/uL Normal [facility] Comment on above: Result Comment: This specimen has been REJECTED due to Laboratory criteria:Contaminated/Leaked.[facility] has been notified of need of recollection.01/10/25408 Eliazar R Mancia Performed By: #### L 100.0100, L500.4050 ####[facility] [address] [place], [address] Eosinophils/100 WBC (Bld) 2.4 % Normal 0-5 [facility] Comment on above: Result Comment: This specimen has been REJECTED due to Laboratory criteria:Contaminated/Leaked.[facility] has been notified of need of recollection.01/10/25408 Eliazar R Mancia Performed By: #### L 100.0100, L500.4050 ####[facility] [address] [place], [address] Erythrocyte distribution width (RBC) [Ratio] 19.2 % High 11.6-14.6 [facility] Comment on above: Result Comment: This specimen has been REJECTED due to Laboratory criteria:Contaminated/Leaked.[facility] has been notified of need of recollection.01/10/25408 Eliazar R Mancia Performed By: #### L 100.0100, L500.4050 ####[facility] [address] [place], [address] Hematocrit (Bld) [Volume fraction] 20.7 % Low 40-54 [facility] Comment on above: Result Comment: This specimen has been REJECTED due to Laboratory criteria:Contaminated/Leaked.[facility] has been notified of need of recollection.01/10/25408 Eliazar R Mancia Performed By: #### L 100.0100, L500.4050 ####[facility] [address] [place], [address] IG# 0.020 X10 3/uL High 0.0-0.0 [facility] Comment on above: Result Comment: This specimen has been REJECTED due to Laboratory criteria:Contaminated/Leaked.[facility] has been notified of need of recollection.01/10/25408 Eliazar R Mancia Performed By: #### L 100.0100, L500.4050 ####[facility] [address] [place], [address] IG% 0.300 Normal 0.0-0.9 [facility] Comment on above: Result Comment: This specimen has been REJECTED due to Laboratory criteria:Contaminated/Leaked.[facility] has been notified of need of recollection.01/10/25408 Eliazar R BurnsIG% - Immature Granulocytes (promyelocytes, myelocytes andmetamyelocytes) > 1% indicates that a LEFT SHIFT is Present. Performed By: #### L 100.0100, L500.4050 ####[facility] [address] [place], [address] LYMPH# 4.28 X10 3/ul Normal 0.83-4.51 [facility] Comment on above: Result Comment: This specimen has been REJECTED due to Laboratory criteria:Contaminated/Leaked.[facility] has been notified of need of recollection.01/10/25408 Eliazar R Mancia Performed By: #### L 100.0100, L500.4050 ####[facility] [address] [place], [address] Lymphocytes/100 WBC (Bld) 67.8 % High 19-41 [facility] Comment on above: Result Comment: This specimen has been REJECTED due to Laboratory criteria:Contaminated/Leaked.[facility] has been notified of need of recollection.01/10/25408 Eliazar R Mancia Performed By: #### L 100.0100, L500.4050 ####[facility] [address] [place], [address] MCH (RBC) [Entitic mass] 29.4 pg Normal 27.0-32.0 [facility] Comment on above: Result Comment: This specimen has been REJECTED due to Laboratory criteria:Contaminated/Leaked.[facility] has been notified of need of recollection.01/10/25408 Eliazar R Mancia Performed By: #### L 100.0100, L500.4050 ####[facility] [address] [place], [address] MCHC (RBC) [Mass/Vol] 26.6 g/dL Low 32-36 [facility] Comment on above: Result Comment: This specimen has been REJECTED due to Laboratory criteria:Contaminated/Leaked.[facility] has been notified of need of recollection.01/10/25408 Eliazar R Mancia Performed By: #### L 100.0100, L500.4050 ####[facility] [address] [place], [address] MCV (RBC) [Entitic vol] 110.7 fL High 80-94 [facility] Comment on above: Result Comment: This specimen has been REJECTED due to Laboratory criteria:Contaminated/Leaked.[facility] has been notified of need of recollection.01/10/25408 Eliazar R Mancia Performed By: #### L 100.0100, L500.4050 ####[facility] [address] [place], [address] MONO # 0.16 X10 3/uL Normal [facility] Comment on above: Result Comment: This specimen has been REJECTED due to Laboratory criteria:Contaminated/Leaked.[facility] has been notified of need of recollection.01/10/25408 Eliazar R Mancia Performed By: #### L 100.0100, L500.4050 ####[facility] [address] [place], [address] Monocytes/100 WBC (Bld) 2.5 % Normal 0-10 [facility] Comment on above: Result Comment: This specimen has been REJECTED due to Laboratory criteria:Contaminated/Leaked.[facility] has been notified of need of recollection.01/10/25408 Eliazar R Mancia Performed By: #### L 100.0100, L500.4050 ####[facility] [address] [place], [address] Neutrophil # 1.69 X10 3/uL Low 2.7-7.7 [facility] Comment on above: Result Comment: This specimen has been REJECTED due to Laboratory criteria:Contaminated/Leaked.[facility] has been notified of need of recollection.01/10/25408 Eliazar R Mancia Performed By: #### L 100.0100, L500.4050 ####[facility] [address] [place], [address] Neutrophils/100 WBC (Bld) 26.8 % Low 47-70 [facility] Comment on above: Result Comment: This specimen has been REJECTED due to Laboratory criteria:Contaminated/Leaked.[facility] has been notified of need of recollection.01/10/25408 Eliazar R Mancia Performed By: #### L 100.0100, L500.4050 ####[facility] [address] [place], [address] Nucleated RBC (Bld) [#/Vol] 0 10*3/uL Normal 0-5 [facility] Comment on above: Result Comment: This specimen has been REJECTED due to Laboratory criteria:Contaminated/Leaked.[facility] has been notified of need of recollection.01/10/25408 Eliazar R Mancia Performed By: #### L 100.0100, L500.4050 ####[facility] [address] [place], [address] Platelet mean volume (Bld) [Entitic vol] 12.2 fL High 6.2-12.0 [facility] Comment on above: Result Comment: This specimen has been REJECTED due to Laboratory criteria:Contaminated/Leaked.[facility] has been notified of need of recollection.01/10/25408 Eliazar R Mancia Performed By: #### L 100.0100, L500.4050 ####[facility] [address] [place], [address] Platelets (Bld) [#/Vol] 97 10*3/uL Low 150-450 [facility] Comment on above: Result Comment: This specimen has been REJECTED due to Laboratory criteria:Contaminated/Leaked.[facility] has been notified of need of recollection.01/10/25408 Eliazar R Mancia Performed By: #### L 100.0100, L500.4050 ####[facility] [address] [place], [address] POSITIVE COUNT YES Abnormal [facility] Comment on above: Result Comment: This specimen has been REJECTED due to Laboratory criteria:Contaminated/Leaked.[facility] has been notified of need of recollection.01/10/25408 Eliazar R Mancia Performed By: #### L 100.0100, L500.4050 ####[facility] [address] [place], [address] POSITIVE MORPH YES Abnormal [facility] Comment on above: Result Comment: This specimen has been REJECTED due to Laboratory criteria:Contaminated/Leaked.[facility] has been notified of need of recollection.01/10/25408 Eliazar R Mancia Performed By: #### L 100.0100, L500.4050 ####[facility] [address] [place], [address] RBC (Bld) [#/Vol] 1.87 10*6/uL Low 4.6-6.2 [facility] Comment on above: Result Comment: This specimen has been REJECTED due to Laboratory criteria:Contaminated/Leaked.[facility] has been notified of need of recollection.01/10/25408 Eliazar R Mancia Performed By: #### L 100.0100, L500.4050 ####[facility] [address] [place], [address] RDW SD 73.4 fl High 35.1-43.9 [facility] Comment on above: Result Comment: This specimen has been REJECTED due to Laboratory criteria:Contaminated/Leaked.[facility] has been notified of need of recollection.01/10/25408 Eliazar R Mancia Performed By: #### L 100.0100, L500.4050 ####[facility] [address] [place], [address] WBC (Bld) [#/Vol] 6.3 10*3/uL Normal 4.4-11.0 [facility] Comment on above: Result Comment: This specimen has been REJECTED due to Laboratory criteria:Contaminated/Leaked.[facility] has been notified of need of recollection.01/10/25408 Eliazar R Mancia Performed By: #### L 100.0100, L500.4050 ####[facility] [address] [place], [address] Comprehensive Metabolic Prof ilon 01-10-2025 Albumin [Mass/Vol] 2.4 g/dL Low 3.5-5.0 [facility] Comment on above: Order Comment: REDRA W. PREVIOUS SPECIMEN REJECTED DUE TOCONTAMINATION. 01/10/25409 Eliazar R Mancia. Performed By: #### L 500.4050, L501.5200, L501.2300 ####[facility] [address] [place], [address] Albumin/Globulin [Mass ratio] 0.9 {ratio} Normal 0.9-2.4 [facility] Comment on above: Order Comment: REDRA W. PREVIOUS SPECIMEN REJECTED DUE TOCONTAMINATION. 01/10/25409 Eliazar R Mancia. Performed By: #### L 500.4050, L501.5200, L501.2300 ####[facility] [address] [place], [address] ALK PHOS 244 U/L High 40-129 [facility] Comment on above: Order Comment: REDRA W. PREVIOUS SPECIMEN REJECTED DUE TOCONTAMINATION. 01/10/25409 Eliazar R Mancia. Performed By: #### L 500.4050, L501.5200, L501.2300 ####[facility] [address] [place], [address] ALT [Catalytic activity/Vol] 54 U/L High <=46 [facility] Comment on above: Order Comment: REDRA W. PREVIOUS SPECIMEN REJECTED DUE TOCONTAMINATION. 06/09/25 0410 Eliazar R Mancia. Performed By: #### L 500.4050, L501.5200, L501.2300 ####[facility] [address], [address] AST [Catalytic activity/Vol] 101 U/L High <=37 [facility] Comment on above: Order Comment: REDRA W. PREVIOUS SPECIMEN REJECTED DUE TOCONTAMINATION. 01/10/25409 Eliazar R Mancia. Performed By: #### L 500.4050, L501.5200, L501.2300 ####[facility] [address] [place], [address] Bilirubin [Mass/Vol] 1.57 mg/dL High 0.00-1.30 [facility] Comment on above: Order Comment: REDRA W. PREVIOUS SPECIMEN REJECTED DUE TOCONTAMINATION. 01/10/25409 Eliazar R Mancia. Performed By: #### L 500.4050, L501.5200, L501.2300 ####[facility] [address] [place], [address] BUN/CRE 13.7 RATIO Normal 10-20 [facility] Comment on above: Order Comment: REDRA W. PREVIOUS SPECIMEN REJECTED DUE TOCONTAMINATION. 01/10/25409 Eliazar R Mancia. Performed By: #### L 500.4050, L501.5200, L501.2300 ####[facility] [address] [place], [address] Calcium [Mass/Vol] 7.8 mg/dL Normal 7.6-11.0 [facility] Comment on above: Order Comment: REDRA W. PREVIOUS SPECIMEN REJECTED DUE TOCONTAMINATION. 01/10/25409 Eliazar R Mancia. Performed By: #### L 500.4050, L501.5200, L501.2300 ####[facility] [address], [address] Chloride [Moles/Vol] 101 mmol/L Normal 98-108 [facility] Comment on above: Order Comment: REDRA W. PREVIOUS SPECIMEN REJECTED DUE TOCONTAMINATION. 01/10/25409 Eliazar R Mancia. Performed By: #### L 500.4050, L501.5200, L501.2300 ####[facility] [address] [place], [address] CO2 [Moles/Vol] 13.1 mmol/L Low 21.0-32.0 [facility] Comment on above: Order Comment: REDRA W. PREVIOUS SPECIMEN REJECTED DUE TOCONTAMINATION. 01/10/25409 Eliazar R Mancia. Performed By: #### L 500.4050, L501.5200, L501.2300 ####[facility] [address] [place], [address] Creatinine [Mass/Vol] 1.95 mg/dL High 0.70-1.20 [facility] Comment on above: Order Comment: REDRA W. PREVIOUS SPECIMEN REJECTED DUE TOCONTAMINATION. 01/10/25409 Eliazar R Mancia. Performed By: #### L 500.4050, L501.5200, L501.2300 ####[facility] [address] [place], [address] ECRCL 45.71 ml/min Low 50-250 [facility] Comment on above: Order Comment: REDRA W. PREVIOUS SPECIMEN REJECTED DUE TOCONTAMINATION. 01/10/25409 Eliazar R Mancia. Performed By: #### L 500.4050, L501.5200, L501.2300 ####[facility] [address] [place], [address] GAP 15 Normal 5-15 [facility] Comment on above: Order Comment: REDRA W. PREVIOUS SPECIMEN REJECTED DUE TOCONTAMINATION. 01/10/25409 Eliazar R Mancia. Performed By: #### L 500.4050, L501.5200, L501.2300 ####[facility] [address] [place], [address] GFR/1.73 sq M.predicted among non-blacks MDRD (S/P/Bld) [Vol rate/Area] 39 mL/min/{1.73_m2} Low >60 [facility] Comment on above: Order Comment: REDRA W. PREVIOUS SPECIMEN REJECTED DUE TOCONTAMINATION. 01/10/25409 Eliazar Mancia. Result Comment: mL/m in/1.73m2 CKD-EPI Creatinine Equation (2020) Performed By: #### L 500.4050, L501.5200, L501.2300 ####[facility] [address] [place], [address] Globulin (S) [Mass/Vol] 2.6 g/dL Normal 2.2-4.2 [facility] Comment on above: Order Comment: REDRA W. PREVIOUS SPECIMEN REJECTED DUE TOCONTAMINATION. 01/10/25409 Eliazar R Mancia. Performed By: #### L 500.4050, L501.5200, L501.2300 ####[facility] [address] [place], [address] Glucose [Mass/Vol] 247 mg/dL High 70-99 [facility] Comment on above: Order Comment: REDRA W. PREVIOUS SPECIMEN REJECTED DUE TOCONTAMINATION. 01/10/25409 Eliazar Gusman Mancia. Performed By: #### L 500.4050, L501.5200, L501.2300 ####[facility] [address] [place], [address] Potassium [Moles/Vol] 3.4 mmol/L Normal 3.3-5.1 [facility] Comment on above: Order Comment: REDRA W. PREVIOUS SPECIMEN REJECTED DUE TOCONTAMINATION. 01/10/25409 Eliazar R Mancia. Performed By: #### L 500.4050, L501.5200, L501.2300 ####[facility] [address] [place], [address] Sodium [Moles/Vol] 129 mmol/L Low 133-145 [facility] Comment on above: Order Comment: REDRA W. PREVIOUS SPECIMEN REJECTED DUE TOCONTAMINATION. 01/10/25409 Eliazar R Mancia. Performed By: #### L 500.4050, L501.5200, L501.2300 ####[facility] [address] [place], [address] T PROT 5.0 g/dL Low 5.9-8.4 [facility] Comment on above: Order Comment: REDRA W. PREVIOUS SPECIMEN REJECTED DUE TOCONTAMINATION. 01/10/25409 Eliazar R Mancia. Performed By: #### L 500.4050, L501.5200, L501.2300 ####[facility] [address] [place], [address] Urea nitrogen [Mass/Vol] 27 mg/dL High 4-19 [facility] Comment on above: Order Comment: REDRA W. PREVIOUS SPECIMEN REJECTED DUE TOCONTAMINATION. 01/10/25409 Eliazar R Mancia. Performed By: #### L 500.4050, L501.5200, L501.2300 ####[facility] [address] [place], [address] ALB Normal 3.5-5.0 [facility] Comment on above: Result Comment: This specimen has been REJECTED due to Laboratory criteria:Contaminated/Leaked.[facility] has been notified of need of recollection.01/10/25408 Eliazar R Mancia Performed By: #### L 100.0100, L500.4050 ####[facility] [address] [place], [address] ALK PHOS Normal 40-129 [facility] Comment on above: Result Comment: This specimen has been REJECTED due to Laboratory criteria:Contaminated/Leaked.[facility] has been notified of need of recollection.01/10/25408 Eliazar R Mancia Performed By: #### L 100.0100, L500.4050 ####[facility] [address] [place], [address] ALT Normal <=46 [facility] Comment on above: Result Comment: This specimen has been REJECTED due to Laboratory criteria:Contaminated/Leaked.[facility] has been notified of need of recollection.01/10/25408 Eliazar R Mancia Performed By: #### L 100.0100, L500.4050 ####[facility] [address] [place], [address] AST Normal <=37 [facility] Comment on above: Result Comment: This specimen has been REJECTED due to Laboratory criteria:Contaminated/Leaked.[facility] has been notified of need of recollection.01/10/25408 Eliazar R Mancia Performed By: #### L 100.0100, L500.4050 ####[facility] [address] [facility] [address] BUN Normal 4-19 [facility] Comment on above: Result Comment: This specimen has been REJECTED due to Laboratory criteria:Contaminated/Leaked.[facility] has been notified of need of recollection.01/10/25408 Eliazar R Mancia Performed By: #### L 100.0100, L500.4050 ####[facility] [address] [place], [address] BUN/CRE Normal 10-20 [facility] Comment on above: Result Comment: This specimen has been REJECTED due to Laboratory criteria:Contaminated/Leaked.[facility] has been notified of need of recollection.01/10/25408 Eliazar R Mancia Performed By: #### L 100.0100, L500.4050 ####[facility] [address] [place], [address] Calcium Normal 7.6-11.0 [facility] Comment on above: Result Comment: This specimen has been REJECTED due to Laboratory criteria:Contaminated/Leaked.[facility] has been notified of need of recollection.01/10/25408 Eliazar R Mancia Performed By: #### L 100.0100, L500.4050 ####[facility] [address] [place], [address] CL Normal 98-108 [facility] Comment on above: Result Comment: This specimen has been REJECTED due to Laboratory criteria:Contaminated/Leaked.[facility] has been notified of need of recollection.01/10/25408 Eliazar R Mancia Performed By: #### L 100.0100, L500.4050 ####[facility] [address] [place], [address] CO2 Normal 21.0-32.0 [facility] Comment on above: Result Comment: This specimen has been REJECTED due to Laboratory criteria:Contaminated/Leaked.[facility] has been notified of need of recollection.01/10/25408 Eliazar R Mancia Performed By: #### L 100.0100, L500.4050 ####[facility] [address] [place], [address] CREAT,SERUM Normal 0.70-1.20 [facility] Comment on above: Result Comment: This specimen has been REJECTED due to Laboratory criteria:Contaminated/Leaked.[facility] has been notified of need of recollection.01/10/25408 Eliazar R Mancia Performed By: #### L 100.0100, L500.4050 ####[facility] [address] [place], [address] eGFR Normal >60 [facility] Comment on above: Result Comment: This specimen has been REJECTED due to Laboratory criteria:Contaminated/Leaked.[facility] has been notified of need of recollection.01/10/25408 Eliazar R Mancia Performed By: #### L 100.0100, L500.4050 ####[facility] [address] [place], [address] GAP Normal 5-15 [facility] Comment on above: Result Comment: This specimen has been REJECTED due to Laboratory criteria:Contaminated/Leaked.[facility] has been notified of need of recollection.01/10/25408 Eliazar R Mancia Performed By: #### L 100.0100, L500.4050 ####[facility] [address] [place], [address] GLU Normal 70-99 [facility] Comment on above: Result Comment: This specimen has been REJECTED due to Laboratory criteria:Contaminated/Leaked.[facility] has been notified of need of recollection.01/10/25408 Eliazar R Mancia Performed By: #### L 100.0100, L500.4050 ####[facility] [address] [facility] [address] Potassium Normal 3.3-5.1 [facility] Comment on above: Result Comment: This specimen has been REJECTED due to Laboratory criteria:Contaminated/Leaked.[facility] has been notified of need of recollection.01/10/25408 Eliazar R Mancia Performed By: #### L 100.0100, L500.4050 ####[facility] [address] [facility] [address] T BILI Normal 0.00-1.30 [facility] Comment on above: Result Comment: This specimen has been REJECTED due to Laboratory criteria:Contaminated/Leaked.[facility] has been notified of need of recollection.01/10/25408 Eliazar R Mancia Performed By: #### L 100.0100, L500.4050 ####[facility] [address] [facility] [address] T PROT Normal 5.9-8.4 [facility] Comment on above: Result Comment: This specimen has been REJECTED due to Laboratory criteria:Contaminated/Leaked.[facility] has been notified of need of recollection.01/10/25408 Eliazar R Mancia Performed By: #### L 100.0100, L500.4050 ####[facility] [address] [facility] [address] Comprehensive Metabolic Profil Normal 133-145 [facility] Comment on above: Result Comment: This specimen has been REJECTED due to Laboratory criteria:Contaminated/Leaked.[facility] has been notified of need of recollection.01/10/259 Eliazar Gusman Mancia Performed By: #### L 100.0100, L500.4050 ####[facility] [address] [place], [address] Magnesiumon 01-10-2025 Magnesium [Mass/Vol] 1.4 mg/dL Low 1.5-2.2 [facility] Comment on above: Order Comment: REDRA W. PREVIOUS SPECIMEN REJECTED DUE TOCONTAMINATION. 01/10/25409 Eliazar Gusman Mancia. Performed By: #### L 500.4050, L501.5200, L501.2300 ####[facility] [address] [place], [address] Phosphoruson 01-10-2025 Phosphate [Mass/Vol] 3.5 mg/dL Normal 2.7-4.5 [facility] Comment on above: Order Comment: REDRA W. PREVIOUS SPECIMEN REJECTED DUE TOCONTAMINATION. 01/10/25409 Eliazar Mancia. Performed By: #### L 500.4050, L501.5200, L501.2300 ####[facility] [address] [place], [address] Abdomen/Pelvis without Conto n 01-09-2025 Abdomen/Pelvis without Cont Normal [facility] Absolute lymphocyte countOrd ered By: Breann Mendez on 01-09-2025 Lymphocytes Auto (Unsp spec) [#/Vol] 0.95 10*3/uL 0.83-4.51 [facility] Ammoniaon 01-09-2025 Ammonia (P) [Moles/Vol] 61.1 umol/L High 16-60 [facility] Comment on above: Performed By: #### L 503.5510 ####[facility] [address] [place], [address] Anion gap in Serum or Plasma Ordered By: Remus Ungbrandon on 01-09-2025 Anion gap [Moles/Vol] 13 mmol/L 5-15 [facility] Automated lymphocyte count a s percentage of total leukocytesOrdered By: Remus Ungur on 01-09-2025 Lymphocytes/100 WBC Auto (Unsp spec) 7.2 % Low 19-41 [facility] BUN/creatinine ratioOrdered By: Remus Ungur on 01-09-2025 Urea nitrogen/Creatinine [Mass ratio] 13.4 mg/mg 10- [facility] Basic Metabolic Profile (BMP )on 01-09-2025 BUN/CRE 13.8 RATIO Normal - [facility] Comment on above: Performed By: #### L 506.1001, L500.2500 ####[facility] [address] [place], [address] Calcium [Mass/Vol] 7.7 mg/dL Normal 7.6-11.0 [facility] Comment on above: Performed By: #### L 506.1001, L500.2500 ####[facility] [address] [place], [address] Chloride [Moles/Vol] 106 mmol/L Normal 98-108 [facility] Comment on above: Performed By: #### L 506.1001, L500.2500 ####[facility] [address] [place], [address] CO2 [Moles/Vol] 14.1 mmol/L Low 21.0-32.0 [facility] Comment on above: Performed By: #### L 506.1001, L500.2500 ####[facility] [address] [place], [address] Creatinine [Mass/Vol] 1.78 mg/dL High 0.70-1.20 [facility] Comment on above: Performed By: #### L 506.1001, L500.2500 ####[facility] [address] [place], [address] ECRCL 50.08 ml/min Normal 50-250 [facility] Comment on above: Performed By: #### L 506.1001, L500.2500 ####[facility] [address] [place], [address] GAP 11 Normal 5-15 [facility] Comment on above: Performed By: #### L 506.1001, L500.2500 ####[facility] [address] [place], [address] GFR/1.73 sq M.predicted among non-blacks MDRD (S/P/Bld) [Vol rate/Area] 44 mL/min/{1.73_m2} Low >60 [facility] Comment on above: Result Comment: mL/m in/1.73m2 CKD-EPI Creatinine Equation (2020) Performed By: #### L 506.1001, L500.2500 ####[facility] [address], [address] Glucose [Mass/Vol] 119 mg/dL High 70-99 [facility] Comment on above: Performed By: #### L 506.1001, L500.2500 ####[facility] [address] [place], [address] Potassium [Moles/Vol] 3.7 mmol/L Normal 3.3-5.1 [facility] Comment on above: Performed By: #### L 506.1001, L500.2500 ####[facility] [address] [place], [address] Sodium [Moles/Vol] 132 mmol/L Low 133-145 [facility] Comment on above: Performed By: #### L 506.1001, L500.2500 ####[facility] [address] [place], [address] Urea nitrogen [Mass/Vol] 25 mg/dL High 4-19 [facility] Comment on above: Performed By: #### L 506.1001, L500.2500 ####[facility] [address] [place], [address] Basophil percentageOrdered B y: Remus Ungur on 01-09-2025 Basophils/100 WBC (Bld) 0.4 % 0-1 [facility] Bedside Glucoseon 01-09-2025 FINGERSTICK GLU 143 mg/dL High 74-106 [facility] Comment on above: Result Comment: BRISA GEMENT OF PATIENT CARE PER NURSING PROTOCOL Performed By: #### L 501.080 ####[facility] [address] [place], [address] FINGERSTICK GLU 99 mg/dL Normal 74-106 [facility] Comment on above: Result Comment: BRISA GEMENT OF PATIENT CARE PER NURSING PROTOCOL Performed By: #### L 501.080 ####[facility] [address] [place], [address] Bilirubin Test strip Ql (U)O rdered By: Remus Ungbrandon on 01-09-2025 Bilirubin Ql (U) 1 mg/dL High Negative [facility] Bilirubin, totalOrdered By: Remus Ungur on 01-09-2025 Bilirubin [Mass/Vol] 1.15 mg/dL 0.00-1.30 [facility] Blood cultureOrdered By: Rem us Ungur on 01-09-2025 Bacteria identified Cx Nom (Bld) No growth in 5 days. [facility] Bacteria identified Cx Nom (Bld) No growth in 5 days. [facility] CBC W/Diff, Automatedon Absolute Lymph 0.95 X10 3/uL Normal 0.83-4.51 [facility] Comment on above: Performed By: #### L 503.6005, L100.0100, L500.4050 ####[facility] [address] [place], [address] Absolute Neut 10.6 X10 3/uL High 2.0-7.7 [facility] Comment on above: Performed By: #### L 503.6005, L100.0100, L500.4050 ####[facility] [address] [place], [address] Basophils/100 WBC (Bld) 0.4 % Normal 0-1 [facility] Comment on above: Performed By: #### L 503.6005, L100.0100, L500.4050 ####[facility] [address] [place], [address] Eosinophils/100 WBC (Bld) 4.2 % Normal 0-5 [facility] Comment on above: Performed By: #### L 503.6005, L100.0100, L500.4050 ####[facility] [address], [address] Erythrocyte distribution width (RBC) [Ratio] 18.1 % High 11.6-14.6 [facility] Comment on above: Performed By: #### L 503.6005, L100.0100, L500.4050 ####[facility] [address], [address] Hematocrit (Bld) [Volume fraction] 24.3 % Low 40-54 [facility] Comment on above: Performed By: #### L 503.6005, L100.0100, L500.4050 ####[facility] [address] [place], [address] Hemoglobin (Bld) [Mass/Vol] 7.9 g/dL Low 13.0-16.5 [facility] Comment on above: Performed By: #### L 503.6005, L100.0100, L500.4050 ####[facility] [address] [place], [address] IG% 0.900 Normal 0.0-0.9 [facility] Comment on above: Result Comment: IG% - Immature Granulocytes (promyelocytes, myelocytes andmetamyelocytes) > 1% indicates that a LEFT SHIFT is Present. Performed By: #### L 503.6005, L100.0100, L500.4050 ####[facility] [address] [place], [address] Lymphocytes/100 WBC (Bld) 7.2 % Low 19-41 [facility] Comment on above: Performed By: #### L 503.6005, L100.0100, L500.4050 ####[facility] [address] [place], [address] MCH (RBC) [Entitic mass] 29.4 pg Normal 27.0-32.0 [facility] Comment on above: Performed By: #### L 503.6005, L100.0100, L500.4050 ####[facility] [address] [place], [address] MCHC (RBC) [Mass/Vol] 32.5 g/dL Normal 32-36 [facility] Comment on above: Performed By: #### L 503.6005, L100.0100, L500.4050 ####[facility] [address] [place], [address] MCV (RBC) [Entitic vol] 90.3 fL Normal 80-94 [facility] Comment on above: Performed By: #### L 503.6005, L100.0100, L500.4050 ####[facility] [address] [place], [address] Monocytes/100 WBC (Bld) 6.7 % Normal 0-10 [facility] Comment on above: Performed By: #### L 503.6005, L100.0100, L500.4050 ####[facility] [address] [place], [address] Neutrophils/100 WBC (Bld) 80.6 % High 47-70 [facility] Comment on above: Performed By: #### L 503.6005, L100.0100, L500.4050 ####[facility] [address] [place], [address] Nucleated RBC (Bld) [#/Vol] 0 10*3/uL Normal 0-5 [facility] Comment on above: Performed By: #### L 503.6005, L100.0100, L500.4050 ####[facility] [address] [place], [address] Platelet mean volume (Bld) [Entitic vol] 11.7 fL Normal 6.2-12.0 [facility] Comment on above: Performed By: #### L 503.6005, L100.0100, L500.4050 ####[facility] [address] [place], [address] Platelets (Bld) [#/Vol] 114 10*3/uL Low 150-450 [facility] Comment on above: Performed By: #### L 503.6005, L100.0100, L500.4050 ####[facility] [address] [place], [address] RBC (Bld) [#/Vol] 2.69 10*6/uL Low 4.6-6.2 [facility] Comment on above: Performed By: #### L 503.6005, L100.0100, L500.4050 ####[facility] [address] [place], [address] RDW SD 57.5 fl High 35.1-43.9 [facility] Comment on above: Performed By: #### L 503.6005, L100.0100, L500.4050 ####[facility] [address] [place], [address] WBC (Bld) [#/Vol] 13.2 10*3/uL High 4.4-11.0 [facility] Comment on above: Performed By: #### L 503.6005, L100.0100, L500.4050 ####[facility] [address] [place], [address] CO2 (BldV) [Moles/Vol]Ordere d By: Yaritza Leo on 01-09-2025 CO2 [Moles/Vol] 15 mmol/L Low 23-33 [facility] CPK Total, Creatine Kinaseon 01-09-2025 CPK TOTAL 34 U/L Normal 24-195 [facility] Comment on above: Performed By: #### L 501.4606 ####[facility] [address] [place], [address] Carbon dioxide, total [Moles /volume] in Central venous bloodOrdered By: Breann Mendez on 01-09-2025 CO2 [Moles/Vol] 13.6 mmol/L Low 21.0-32.0 [facility] Chloride assayOrdered By: Josselyn Mendez on 01-09-2025 Chloride [Moles/Vol] 103 mmol/L 98-108 [facility] Comprehensive Metabolic Prof ilon 01-09-2025 Albumin [Mass/Vol] 2.4 g/dL Low 3.5-5.0 [facility] Comment on above: Performed By: #### L 503.6005, L100.0100, L500.4050 ####[facility] [address] [place], [address] Albumin/Globulin [Mass ratio] 0.8 {ratio} Low 0.9-2.4 [facility] Comment on above: Performed By: #### L 503.6005, L100.0100, L500.4050 ####[facility] [address] [place], [address] ALK PHOS 196 U/L High 40-129 [facility] Comment on above: Performed By: #### L 503.6005, L100.0100, L500.4050 ####[facility] [address] [place], [address] ALT [Catalytic activity/Vol] 42 U/L Normal <=46 [facility] Comment on above: Performed By: #### L 503.6005, L100.0100, L500.4050 ####[facility] [address] [place], [address] AST [Catalytic activity/Vol] 68 U/L High <=37 [facility] Comment on above: Performed By: #### L 503.6005, L100.0100, L500.4050 ####[facility] [address] [place], [address] Bilirubin [Mass/Vol] 1.15 mg/dL Normal 0.00-1.30 [facility] Comment on above: Performed By: #### L 503.6005, L100.0100, L500.4050 ####[facility] [address] [place], [address] BUN/CRE 13.4 RATIO Normal 10-20 [facility] Comment on above: Performed By: #### L 503.6005, L100.0100, L500.4050 ####[facility] [address] [place], [address] Calcium [Mass/Vol] 8.4 mg/dL Normal 7.6-11.0 [facility] Comment on above: Performed By: #### L 503.6005, L100.0100, L500.4050 ####[facility] [address] [place], [address] Chloride [Moles/Vol] 103 mmol/L Normal 98-108 [facility] Comment on above: Performed By: #### L 503.6005, L100.0100, L500.4050 ####[facility] [address] [place], [address] CO2 [Moles/Vol] 13.6 mmol/L Low 21.0-32.0 [facility] Comment on above: Performed By: #### L 503.6005, L100.0100, L500.4050 ####[facility] [address], [address] Creatinine [Mass/Vol] 1.77 mg/dL High 0.70-1.20 [facility] Comment on above: Performed By: #### L 503.6005, L100.0100, L500.4050 ####[facility] [address], [address] ECRCL 50.61 ml/min Normal 50-250 [facility] Comment on above: Performed By: #### L 503.6005, L100.0100, L500.4050 ####[facility] [address], [address] GAP 13 Normal 5-15 [facility] Comment on above: Performed By: #### L 503.6005, L100.0100, L500.4050 ####[facility] [address], [address] GFR/1.73 sq M.predicted among non-blacks MDRD (S/P/Bld) [Vol rate/Area] 44 mL/min/{1.73_m2} Low >60 [facility] Comment on above: Result Comment: mL/m in/1.73m2 CKD-EPI Creatinine Equation (2020) Performed By: #### L 503.6005, L100.0100, L500.4050 ####[facility] [address] [place], [address] Globulin (S) [Mass/Vol] 2.9 g/dL Normal 2.2-4.2 [facility] Comment on above: Performed By: #### L 503.6005, L100.0100, L500.4050 ####[facility] [address] [place], [address] Glucose [Mass/Vol] 149 mg/dL High 70-99 [facility] Comment on above: Performed By: #### L 503.6005, L100.0100, L500.4050 ####[facility] [address] [place], [address] Potassium [Moles/Vol] 3.6 mmol/L Normal 3.3-5.1 [facility] Comment on above: Performed By: #### L 503.6005, L100.0100, L500.4050 ####[facility] [address] [place], [address] Sodium [Moles/Vol] 129 mmol/L Low 133-145 [facility] Comment on above: Performed By: #### L 503.6005, L100.0100, L500.4050 ####[facility] [address] [place], [address] T PROT 5.3 g/dL Low 5.9-8.4 [facility] Comment on above: Performed By: #### L 503.6005, L100.0100, L500.4050 ####[facility] [address] [place], [address] Urea nitrogen [Mass/Vol] 24 mg/dL High 4-19 [facility] Comment on above: Performed By: #### L 503.6005, L100.0100, L500.4050 ####[facility] [address] 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 [facility] Emergency Department Summary on 01-09-2025 Emergency Department Summary Normal [facility] Eosinophil percentageOrdered By: Breann Mendez on 01-09-2025 Eosinophils/100 WBC (Bld) 4.2 % 0-5 [facility] Erythrocyte distribution wid th ratioOrdered By: [facility] on 01-09-2025 Erythrocyte distribution width (RBC) [Ratio] 18.1 % High 11.6-14.6 [facility] Erythrocyte distribution wid th standard deviationOrdered By: [facility] M[facility] on 01-09-2025 Erythrocyte distribution width (RBC) [Ratio] 57.5 fl High 35.1-43.9 [facility] Glomerular filtration rate ( GFR) estimation/1.73 sq m using serum, plasma, or whole bOrdered By: [facility] on 01-09-2025 GFR/1.73 sq M.predicted among non-blacks MDRD (S/P/Bld) [Vol rate/Area] 44 mL/min/{1.73_m2} Low >60 [facility] H AND P Exam - Hospitaliston 01-09-2025 H&P Exam - Hospitalist Normal [facility] Hematocrit Auto (Bld) [Volum e fraction]Ordered By: [facility] on 01-09-2025 Hematocrit (Bld) [Volume fraction] 24.3 % Low 40-54 [facility] Hemoglobin measurementOrdere d By: [facility] on 01-09-2025 Hemoglobin (Bld) [Mass/Vol] 7.9 g/dL Low 13.0-16.5 [facility] Immature granulocytes/100 WB C Auto (Bld)Ordered By: [facility] on 01-09-2025 Immature granulocytes/100 WBC (Bld) 0.900 % 0.0-0.9 [facility] Ketones Test strip Ql (U)Ord ered By: [facility] [place] on 01-09-2025 Ketones Ql (U) 5 mg/dl High Negative [facility] Lactic Acidon 01-09-2025 Lactate [Moles/Vol] 2.4 mmol/L Invalid Interpretation Code 0.0-2.0 [facility] Comment on above: Result Comment: Crit ical Result(s) Called at: 1829 by:??Yanet RENDON to Kal. Results read back by same. Performed By: #### L 385.0243 ####[facility] [address] [place], [place], [address] Lactate [Moles/Vol] 3.1 mmol/L Invalid Interpretation Code 0.0-2.0 [facility] Comment on above: Order Comment: Y Result Comment: Crit ical Result(s) Called at 1108: by: [facility]Z [facility]. ??Results read back by same. Performed By: #### L 503.6005, L100.0100, L500.4050 ####[facility] [address] [place], [address] M R Staph Aureus DNA by PCRo n 01-09-2025 MRSA DNA ASSAY Negative Normal Negative [facility] Comment on above: Performed By: #### L 8200.1000 ####[facility] [address] [place], [place], [id number] MCV (mean corpuscular volume ) determinationOrdered By: Breann Mendez on 01-09-2025 MCV (RBC) [Entitic vol] 90.3 fL 80-94 [facility] Mean corpuscular hemoglobin (MCH) determinationOrdered By: Remus Mendez on 01-09-2025 MCH (RBC) [Entitic mass] 29.4 pg 27.0-32.0 [facility] Monocyte percentageOrdered B y: Remus Ungbrandon on 01-09-2025 Monocytes/100 WBC (Bld) 6.7 % 0-10 [facility] Mucus LM Ql (Urine sed)Order ed By: Remus Vanessa on 01-09-2025 Mucus Ql (Urine sed) 0 SEEN /hpf [facility] Neutrophil percentageOrdered By: Remus Mendez on 01-09-2025 Neutrophils/100 WBC (Bld) 80.6 % High 47-70 [facility] Nitrite Test strip Ql (U)Ord ered By: Breann Mendez on 01-09-2025 Nitrite Ql (U) Negative Negative [facility] No Panel InformationOrdered By: Yaritza Leo on 01-09-2025 TRAMAINE [facility] Not entered [facility] No Panel InformationOrdered By: Breann Mendez on 01-09-2025 68 U/L High <38 [facility] Platelet countOrdered By: Josselyn Mendez on 01-09-2025 Platelets (Bld) [#/Vol] 114 10*3/uL Low 150-450 [facility] Potassium measurement (mass/ volume)Ordered By: Breann Mendez on 01-09-2025 Potassium (Unsp spec) [Mass/Vol] 3.6 mmol/L 3.3-5.1 [facility] Protein Test strip Ql (U)Ord ered By: Breann Mendez on 01-09-2025 Protein Ql (U) 500 mg/dl High Negative [facility] RBC Auto (Bld) [#/Vol]Ordere d By: Breann Mendez on 01-09-2025 RBC (Bld) [#/Vol] 2.69 10*6/uL Low 4.6-6.2 [facility] Serum creatinine measurement (mass/volume)Ordered By: Breann Mendez on 01-09-2025 Creatinine [Mass/Vol] 1.77 mg/dL High 0.70-1.20 [facility] Serum globulin measurementOr dered By: Breann Mendez on 01-09-2025 Globulin (S) [Mass/Vol] 2.9 g/dL 2.2-4.2 [facility] Serum glucose measurement (m ass/volume)Ordered By: Breann Mendez on 01-09-2025 Glucose [Mass/Vol] 149 mg/dL High 70-99 [facility] Serum or plasma alanine thomas otransferase (ALT) measurementOrdered By: Berann Mendez on 01-09-2025 ALT [Catalytic activity/Vol] 42 U/L <47 [facility] Serum or plasma albumin roosevelt urement (mass/volume)Ordered By: Breann Mendez on 01-09-2025 Albumin [Mass/Vol] 2.4 g/dL Low 3.5-5.0 [facility] Serum or plasma albumin/glob ulin mass ratioOrdered By: Breann Mendez on 01-09-2025 Albumin/Globulin [Mass ratio] 0.8 {ratio} Low 0.9-2.4 [facility] Serum or plasma alkaline kendrick sphatase measurementOrdered By: Breann Mendez on 01-09-2025 ALP [Catalytic activity/Vol] 196 U/L High 40-129 [facility] Serum or plasma calcium roosevelt urement (mass/volume)Ordered By: Ramonaus Mendez on 01-09-2025 Calcium [Mass/Vol] 8.4 mg/dL 7.6-11.0 [facility] Serum or plasma creatine kin ase activityOrdered By: Yaritza Leo on 01-09-2025 CK [Catalytic activity/Vol] 34 U/L 24-195 [facility] Serum or plasma urea nitroge n measurement (mass/volume)Ordered By: Breann Mendez on 01-09-2025 Urea nitrogen [Mass/Vol] 24 mg/dL High 4-19 [facility] Sodium levelOrdered By: Veena Mendez on 01-09-2025 Sodium [Moles/Vol] 129 mmol/L Low 133-145 [facility] Squamous epithelial cells de tection in urine sediment by light microscopyOrdered By: Breann Mendez on 01-09-2025 Epithelial cells.squamous LM Ql (Urine sed) 0-5 SEEN /hpf 0-5 [facility] Total proteinOrdered By: Ramona Mendez on 01-09-2025 Protein [Mass/Vol] 5.3 g/dL Low 5.9-8.4 [facility] Urinalysis, Completeon 01-09 EPI,SQUAMOUS 0-5 SEEN Normal 0-5 [facility] Comment on above: Order Comment: COLOR OF URINE MAY AFFECT DIPSTICK RESULTS.CLEAN CATCH Performed By: #### L 400.0001 ####[facility] [address] [place], [address] RBC > 100 SEEN Normal 0-5 [facility] Comment on above: Order Comment: COLOR OF URINE MAY AFFECT DIPSTICK RESULTS.CLEAN CATCH Performed By: #### L 400.0001 ####[facility] [address] [place], [address] WBC 50-100 SEEN Normal 0-5 [facility] Comment on above: Order Comment: COLOR OF URINE MAY AFFECT DIPSTICK RESULTS.CLEAN CATCH Performed By: #### L 400.0001 ####[facility] [address] [place], [address] BACTERIA 0 SEEN Normal None Seen [facility] Comment on above: Order Comment: COLOR OF URINE MAY AFFECT DIPSTICK RESULTS.CLEAN CATCH Performed By: #### L 400.0001 ####[facility] [address] [place], [address] Mucus Ql (Urine sed) 0 SEEN Normal [facility] Comment on above: Order Comment: COLOR OF URINE MAY AFFECT DIPSTICK RESULTS.CLEAN CATCH Performed By: #### L 400.0001 ####[facility] [address] [place], [place], [id number] Urine clarityOrdered By: Ramona Mendez on 01-09-2025 Clarity (U) Turbid Clear [facility] Urine color determinationOrd ered By: Breann Mendez on 01-09-2025 Color (U) Red Yellow [facility] Urine cultureOrdered By: Ramona Mendez on 01-09-2025 Bacteria identified Cx Nom (U) Yeast, not Mary albicans Abnormal [facility] Urine glucose detectionOrder ed By: Breann Mendez on 01-09-2025 Glucose Ql (U) Normal mg/dl Normal [facility] Urine leukocyte esterase det ection by dipstickOrdered By: Breann Mendez on 01-09-2025 Leukocyte esterase Test strip Ql (U) 500 /ul High Negative [facility] Urine pHOrdered By: Breann Landers gur on 01-09-2025 pH (U) 6.0 [pH] 5.0 - 8.0 [facility] Urine sediment bacteria coun t by microscopy (number/high power field)Ordered By: Breann Mendez on 01-09-2025 Bacteria LM.HPF (Urine sed) [#/Area] 0 /[HPF] None Seen [facility] Urine specific gravity measu rementOrdered By: Breann Mendez on 01-09-2025 Specific gravity (U) [Rel density] 1.015 1.002-1.030 [facility] Urine urobilinogen measureme ntOrdered By: Breann Mendez on 01-09-2025 Urobilinogen Ql (U) Normal mg/dl Normal [facility] Venous Blood Gason Blood Gas Type TRAMAINE Normal [facility] Comment on above: Performed By: #### L 9000.0810 ####[facility] [address], [address] CO2 [Moles/Vol] 15 mmol/L Low 23-33 [facility] Comment on above: Performed By: #### L 9000.0810 ####[facility] [address] [place], [address] HCO3 (Bld) [Moles/Vol] 14 mmol/L Low 22-26 [facility] Comment on above: Performed By: #### L 9000.0810 ####[facility] [address], [address] O2 Delivery Dev Not entered [facility] Comment on above: Performed By: #### L 9000.0810 ####[facility] [address], [address] SITE Not entered [facility] Comment on above: Performed By: #### L 9000.0810 ####[facility] [address], [address] VBG BE -11 mmol/L Low -1.0-3.5 [facility] Comment on above: Performed By: #### L 9000.0810 ####[facility] [address] [place], [address] VBG pCO2 24.7 mmHg Low 41-51 [facility] Comment on above: Performed By: #### L 9000.0810 ####[facility] [address], [address] VBG pH 7.36 Normal 7.32-7.42 [facility] Comment on above: Performed By: #### L 9000.0810 ####[facility] [address] [place], [address] VBG PO2 49 mmHg High 25-40 [facility] Comment on above: Performed By: #### L 9000.0810 ####[facility] [address] [place], [place], [address] VBG SO2 84 High 50-70 [facility] Comment on above: Performed By: #### L 9000.0810 ####[facility] [address] [place], [place], [address] Venous blood ammonia measure mentOrdered By: Lupillo Robbins on 01-09-2025 Ammonia (P) [Moles/Vol] 61.1 umol/L High 16-60 [facility] Venous blood base excess wei surementOrdered By: Yaritza Leo on 01-09-2025 Base excess Calc (BldV) [Moles/Vol] -11 mmol/L Low -1.0-3.5 [facility] Venous blood bicarbonate wei surementOrdered By: Yaritza Leo on 01-09-2025 HCO3 (Bld) [Moles/Vol] 14 mmol/L Low 22-26 [facility] Venous blood pH measurementO rdered By: Yaritza Leo on 01-09-2025 pH (BldV) 7.36 [pH] 7.32-7.42 [facility] Venous blood partial pressur e of carbon dioxide measurementOrdered By: Yaritza Leo on 01-09-2025 CO2 (BldV) [Partial pressure] 24.7 mm[Hg] Low 41-51 [facility] Venous blood partial pressur e of oxygen measurementOrdered By: Yaritza Leo on 01-09-2025 Oxygen (BldV) [Partial pressure] 49 mm[Hg] High 25-40 [facility] Vitamin D,25 Hydroxyon 01-09 Vitamin D 25-OH 10.0 ng/mL Low 30-100 [facility] Comment on above: Result Comment: Sarah min D StatusDeficiency: <20 ng/mL (50nmol/L)Insufficiency: 20-30 ng/mL (50-75 nmol/L)Sufficiency: 30-100 ng/mL (75-250 nmol/L)Toxicity: >100 ng/mL (>250 nmol/L) Performed By: #### L 506.1001, L500.2500 ####[facility] [address] [place], [address] White blood cell (WBC) count Ordered By: Breann Mendez on 01-09-2025 WBC (Bld) [#/Vol] 13.2 10*3/uL High 4.4-11.0 [facility] White blood cell countOrdere d By: Breann Mendez on 01-09-2025 White blood cell count 50-100 SEEN /hpf 0-5 [facility] Basic Metabolic Profile (BMP )on 01-07-2025 BUN Normal 4-19 [facility] Comment on above: Result Comment: Canc elled via OM: Order cancelled - Patient discharged Performed By: #### L 500.2500, L100.0100 ####[facility] [address] [place], [address] BUN/CRE Normal 10-20 [facility] Comment on above: Result Comment: Canc elled via OM: Order cancelled - Patient discharged Performed By: #### L 500.2500, L100.0100 ####[facility] [address] [place], [address] Calcium Normal 7.6-11.0 [facility] Comment on above: Result Comment: Canc elled via OM: Order cancelled - Patient discharged Performed By: #### L 500.2500, L100.0100 ####[facility] [address] [place], [address] CL Normal 98-108 [facility] Comment on above: Result Comment: Canc elled via OM: Order cancelled - Patient discharged Performed By: #### L 500.2500, L100.0100 ####[facility] [address] [place], [address] CO2 Normal 21.0-32.0 [facility] Comment on above: Result Comment: Canc elled via OM: Order cancelled - Patient discharged Performed By: #### L 500.2500, L100.0100 ####[facility] [address] [place], [address] CREAT,SERUM Normal 0.70-1.20 [facility] Comment on above: Result Comment: Canc elled via OM: Order cancelled - Patient discharged Performed By: #### L 500.2500, L100.0100 ####[facility] [address] [place], [address] eGFR Normal >60 [facility] Comment on above: Result Comment: Canc elled via OM: Order cancelled - Patient discharged Performed By: #### L 500.2500, L100.0100 ####[facility] [address] [place], [address] GAP Normal 5-15 [facility] Comment on above: Result Comment: Canc elled via OM: Order cancelled - Patient discharged Performed By: #### L 500.2500, L100.0100 ####[facility] [address] [place], [address] GLU Normal 70-99 [facility] Comment on above: Result Comment: Canc elled via OM: Order cancelled - Patient discharged Performed By: #### L 500.2500, L100.0100 ####[facility] [address] [place], [address] Potassium Normal 3.3-5.1 [facility] Comment on above: Result Comment: Canc elled via OM: Order cancelled - Patient discharged Performed By: #### L 500.2500, L100.0100 ####[facility] [address] [place], [address] Basic Metabolic Profile (BMP) Normal 133-145 [facility] Comment on above: Result Comment: Canc elled via OM: Order cancelled - Patient discharged Performed By: #### L 500.2500, L100.0100 ####[facility] [address] [place], [address] CBC W/Diff, Automatedon 06-0 -2024 Absolute Neut Normal 2.0-7.7 [facility] Comment on above: Result Comment: Canc elled via OM: Order cancelled - Patient discharged Performed By: #### L 500.2500, L100.0100 ####[facility] [address], [address] HCT Normal 40-54 [facility] Comment on above: Result Comment: Canc elled via OM: Order cancelled - Patient discharged Performed By: #### L 500.2500, L100.0100 ####[facility] [address] [place], [address] HGB Normal 13.0-16.5 [facility] Comment on above: Result Comment: Canc elled via OM: Order cancelled - Patient discharged Performed By: #### L 500.2500, L100.0100 ####[facility] [address] [place], [address] MCH Normal 27.0-32.0 [facility] Comment on above: Result Comment: Canc elled via OM: Order cancelled - Patient discharged Performed By: #### L 500.2500, L100.0100 ####[facility] [address] [place], [address] MCHC Normal 32-36 [facility] Comment on above: Result Comment: Canc elled via OM: Order cancelled - Patient discharged Performed By: #### L 500.2500, L100.0100 ####[facility] [address] [place], [address] MCV Normal 80-94 [facility] Comment on above: Result Comment: Canc elled via OM: Order cancelled - Patient discharged Performed By: #### L 500.2500, L100.0100 ####[facility] [address], [address] NEUT% Normal 47-70 [facility] Comment on above: Result Comment: Canc elled via OM: Order cancelled - Patient discharged Performed By: #### L 500.2500, L100.0100 ####[facility] [address] [place], [address] PLT Normal 150-450 [facility] Comment on above: Result Comment: Canc elled via OM: Order cancelled - Patient discharged Performed By: #### L 500.2500, L100.0100 ####[facility] [address] [place], [address] RBC Normal 4.6-6.2 [facility] Comment on above: Result Comment: Canc elled via OM: Order cancelled - Patient discharged Performed By: #### L 500.2500, L100.0100 ####[facility] [address] [place], [address] RDW CV Normal 11.6-14.6 [facility] Comment on above: Result Comment: Canc elled via OM: Order cancelled - Patient discharged Performed By: #### L 500.2500, L100.0100 ####[facility] [address] [place], [address] RDW SD Normal 35.1-43.9 [facility] Comment on above: Result Comment: Canc elled via OM: Order cancelled - Patient discharged Performed By: #### L 500.2500, L100.0100 ####[facility] [address], [address] WBC Normal 4.4-11.0 [facility] Comment on above: Result Comment: Canc elled via OM: Order cancelled - Patient discharged Performed By: #### L 500.2500, L100.0100 ####[facility] [address], [address] Basic Metabolic Profile (BMP )on 01-06-2025 BUN Normal 4-19 [facility] Comment on above: Result Comment: Canc elled via OM: Order cancelled - Patient discharged Performed By: #### L 100.0100, L500.2500 ####[facility] [address] [place], [address] BUN/CRE Normal 10-20 [facility] Comment on above: Result Comment: Canc elled via OM: Order cancelled - Patient discharged Performed By: #### L 100.0100, L500.2500 ####[facility] [address] [place], [address] Calcium Normal 7.6-11.0 [facility] Comment on above: Result Comment: Canc elled via OM: Order cancelled - Patient discharged Performed By: #### L 100.0100, L500.2500 ####[facility] [address] [place], [address] CL Normal 98-108 [facility] Comment on above: Result Comment: Canc elled via OM: Order cancelled - Patient discharged Performed By: #### L 100.0100, L500.2500 ####[facility] [address] [place], [address] CO2 Normal 21.0-32.0 [facility] Comment on above: Result Comment: Canc elled via OM: Order cancelled - Patient discharged Performed By: #### L 100.0100, L500.2500 ####[facility] [address], [address] CREAT,SERUM Normal 0.70-1.20 [facility] Comment on above: Result Comment: Canc elled via OM: Order cancelled - Patient discharged Performed By: #### L 100.0100, L500.2500 ####[facility] [address], [address] eGFR Normal >60 [facility] Comment on above: Result Comment: Canc elled via OM: Order cancelled - Patient discharged Performed By: #### L 100.0100, L500.2500 ####[facility] [address], [address] GAP Normal 5-15 [facility] Comment on above: Result Comment: Canc elled via OM: Order cancelled - Patient discharged Performed By: #### L 100.0100, L500.2500 ####[facility] [address], [address] GLU Normal 70-99 [facility] Comment on above: Result Comment: Canc elled via OM: Order cancelled - Patient discharged Performed By: #### L 100.0100, L500.2500 ####[facility] [address] [place], [address] Potassium Normal 3.3-5.1 [facility] Comment on above: Result Comment: Canc elled via OM: Order cancelled - Patient discharged Performed By: #### L 100.0100, L500.2500 ####[facility] [address] [place], [address] Basic Metabolic Profile (BMP) Normal 133-145 [facility] Comment on above: Result Comment: Canc elled via OM: Order cancelled - Patient discharged Performed By: #### L 100.0100, L500.2500 ####[facility] [address] [place], [address] CBC W/Diff, Automatedon 06-0 Absolute Neut Normal 2.0-7.7 [facility] Comment on above: Result Comment: Canc elled via OM: Order cancelled - Patient discharged Performed By: #### L 100.0100, L500.2500 ####[facility] [address], [address] HCT Normal 40-54 [facility] Comment on above: Result Comment: Canc elled via OM: Order cancelled - Patient discharged Performed By: #### L 100.0100, L500.2500 ####[facility] [address], [address] HGB Normal 13.0-16.5 [facility] Comment on above: Result Comment: Canc elled via OM: Order cancelled - Patient discharged Performed By: #### L 100.0100, L500.2500 ####[facility] [address] [place], [address] MCH Normal 27.0-32.0 [facility] Comment on above: Result Comment: Canc elled via OM: Order cancelled - Patient discharged Performed By: #### L 100.0100, L500.2500 ####[facility] [address], [address] MCHC Normal 32-36 [facility] Comment on above: Result Comment: Canc elled via OM: Order cancelled - Patient discharged Performed By: #### L 100.0100, L500.2500 ####[facility] [address] [place], [address] MCV Normal 80-94 [facility] Comment on above: Result Comment: Canc elled via OM: Order cancelled - Patient discharged Performed By: #### L 100.0100, L500.2500 ####[facility] [address] [place], [address] NEUT% Normal 47-70 [facility] Comment on above: Result Comment: Canc elled via OM: Order cancelled - Patient discharged Performed By: #### L 100.0100, L500.2500 ####[facility] [address], [address] PLT Normal 150-450 [facility] Comment on above: Result Comment: Canc elled via OM: Order cancelled - Patient discharged Performed By: #### L 100.0100, L500.2500 ####[facility] [address] [place], [address] RBC Normal 4.6-6.2 [facility] Comment on above: Result Comment: Canc elled via OM: Order cancelled - Patient discharged Performed By: #### L 100.0100, L500.2500 ####[facility] [address] [place], [address] RDW CV Normal 11.6-14.6 [facility] Comment on above: Result Comment: Canc elled via OM: Order cancelled - Patient discharged Performed By: #### L 100.0100, L500.2500 ####[facility] [address] [place], [address] RDW SD Normal 35.1-43.9 [facility] Comment on above: Result Comment: Canc elled via OM: Order cancelled - Patient discharged Performed By: #### L 100.0100, L500.2500 ####[facility] [address] [place], [address] WBC Normal 4.4-11.0 [facility] Comment on above: Result Comment: Canc elled via OM: Order cancelled - Patient discharged Performed By: #### L 100.0100, L500.2500 ####[facility] [address] [place], [address] Absolute lymphocyte countOrd ered By: Hill Acuña on 01-05-2025 Lymphocytes Auto (Unsp spec) [#/Vol] 0.94 10*3/uL 0.83-4.51 [facility] Anion gap in Serum or Plasma Ordered By: Hill Acuña on 01-05-2025 Anion gap [Moles/Vol] 9 mmol/L 5-15 [facility] Automated lymphocyte count a s percentage of total leukocytesOrdered By: Hill Acuña on 01-05-2025 Lymphocytes/100 WBC Auto (Unsp spec) 13.4 % Low 19-41 [facility] BUN/creatinine ratioOrdered By: Hill Acuña on 01-05-2025 Urea nitrogen/Creatinine [Mass ratio] 11.9 mg/mg 10- [facility] Basic Metabolic Profile (BMP )on 01-05-2025 BUN/CRE 11.9 RATIO Normal - [facility] Comment on above: Performed By: #### L 100.0100, L500.2500 ####[facility] [address] [place], [address] Calcium [Mass/Vol] 7.9 mg/dL Normal 7.6-11.0 [facility] Comment on above: Performed By: #### L 100.0100, L500.2500 ####[facility] [address] [place], [address] Chloride [Moles/Vol] 101 mmol/L Normal 98-108 [facility] Comment on above: Performed By: #### L 100.0100, L500.2500 ####[facility] [address] [place], [address] CO2 [Moles/Vol] 18.5 mmol/L Low 21.0-32.0 [facility] Comment on above: Performed By: #### L 100.0100, L500.2500 ####[facility] [address] [place], [address] Creatinine [Mass/Vol] 0.95 mg/dL Normal 0.70-1.20 [facility] Comment on above: Performed By: #### L 100.0100, L500.2500 ####[facility] [address] [place], [address] ECRCL 95.07 ml/min Normal 50-250 [facility] Comment on above: Performed By: #### L 100.0100, L500.2500 ####[facility] [address] [place], [address] GAP 9 Normal 5-15 [facility] Comment on above: Performed By: #### L 100.0100, L500.2500 ####[facility] [address] [place], [address] GFR/1.73 sq M.predicted among non-blacks MDRD (S/P/Bld) [Vol rate/Area] 92 mL/min/{1.73_m2} Normal >60 [facility] Comment on above: Result Comment: mL/m in/1.73m2 CKD-EPI Creatinine Equation (2020) Performed By: #### L 100.0100, L500.2500 ####[facility] [address] [place], [address] Glucose [Mass/Vol] 356 mg/dL High 70-99 [facility] Comment on above: Performed By: #### L 100.0100, L500.2500 ####[facility] [address] [place], [address] Potassium [Moles/Vol] 3.6 mmol/L Normal 3.3-5.1 [facility] Comment on above: Performed By: #### L 100.0100, L500.2500 ####[facility] [address] [place], [address] Sodium [Moles/Vol] 128 mmol/L Low 133-145 [facility] Comment on above: Performed By: #### L 100.0100, L500.2500 ####[facility] [address] [place], [address] Urea nitrogen [Mass/Vol] 11 mg/dL Normal 4-19 [facility] Comment on above: Performed By: #### L 100.0100, L500.2500 ####[facility] [address] [place], [address] Basophil percentageOrdered B y: Hill Acuña on 01-05-2025 Basophils/100 WBC (Bld) 0.4 % 0-1 [facility] Bedside Glucoseon 01-05-2025 FINGERSTICK GLU 163 mg/dL High 74-106 [facility] Comment on above: Result Comment: BRISA GEMENT OF PATIENT CARE PER NURSING PROTOCOL Performed By: #### L 501.080 ####[facility] [address] [place], [address] FINGERSTICK GLU 191 mg/dL High 74-106 [facility] Comment on above: Result Comment: BRISA GEMENT OF PATIENT CARE PER NURSING PROTOCOL Performed By: #### L 501.080 ####[facility] [address] [place], [address] FINGERSTICK GLU 307 mg/dL High 74-106 [facility] Comment on above: Result Comment: BRISA GEMENT OF PATIENT CARE PER NURSING PROTOCOL Performed By: #### L 501.080 ####[facility] [address] [place], [address] CBC W/Diff, Automatedon --2024 Basophils/100 WBC (Bld) 0.4 % Normal 0-1 [facility] Comment on above: Performed By: #### L 100.0100, L500.2500 ####[facility] [address] [place], [address] Eosinophils/100 WBC (Bld) 5.1 % High 0-5 [facility] Comment on above: Performed By: #### L 100.0100, L500.2500 ####[facility] [address] [place], [address] Hematocrit (Bld) [Volume fraction] 22.3 % Low 40-54 [facility] Comment on above: Performed By: #### L 100.0100, L500.2500 ####[facility] [address] [place], [address] Hemoglobin (Bld) [Mass/Vol] 7.5 g/dL Low 13.0-16.5 [facility] Comment on above: Performed By: #### L 100.0100, L500.2500 ####[facility] [address] [place], [address] Lymphocytes/100 WBC (Bld) 13.4 % Low 19-41 [facility] Comment on above: Performed By: #### L 100.0100, L500.2500 ####[facility] [address] [place], [address] MCH (RBC) [Entitic mass] 29.1 pg Normal 27.0-32.0 [facility] Comment on above: Performed By: #### L 100.0100, L500.2500 ####[facility] [address] [place], [address] MCV (RBC) [Entitic vol] 86.4 fL Normal 80-94 [facility] Comment on above: Performed By: #### L 100.0100, L500.2500 ####[facility] [address] [place], [address] RBC (Bld) [#/Vol] 2.58 10*6/uL Low 4.6-6.2 [facility] Comment on above: Performed By: #### L 100.0100, L500.2500 ####[facility] [address] [place], [address] Carbon dioxide, total [Moles /volume] in Central venous bloodOrdered By: Hill Acuña on 01-05-2025 CO2 [Moles/Vol] 18.5 mmol/L Low 21.0-32.0 [facility] Chloride assayOrdered By: Kvng Acuña on 01-05-2025 Chloride [Moles/Vol] 101 mmol/L 98-[address] [facility] Eosinophil percentageOrdered By: Hill Acuña on 01-05-2025 Eosinophils/100 WBC (Bld) 5.1 % High 0-5 [facility] Erythrocyte distribution wid th ratioOrdered By: Hill Acuña on 01-05-2025 Erythrocyte distribution width (RBC) [Ratio] 16.4 % High 11.6-14.6 [facility] Erythrocyte distribution wid th standard deviationOrdered By: Hill Acuña on 01-05-2025 Erythrocyte distribution width (RBC) [Ratio] 51.8 fl High 35.1-43.9 [facility] Glomerular filtration rate ( GFR) estimation/1.73 sq m using serum, plasma, or whole bOrdered By: Hill Acuña on 01-05-2025 GFR/1.73 sq M.predicted among non-blacks MDRD (S/P/Bld) [Vol rate/Area] 92 mL/min/{1.73_m2} >60 [facility] deOrdered By: Hill Acuña on 01-05-2025 Glucose [Mass/Vol] 163 mg/dL High 74-106 [facility] Glucose [Mass/Vol] 191 mg/dL High 74-106 [facility] Hematocrit Auto (Bld) [Volum e fraction]Ordered By: Hill Acuña on 01-05-2025 Hematocrit (Bld) [Volume fraction] 22.3 % Low 40-54 [facility] Hemoglobin measurementOrdere d By: Hill Acuña on 01-05-2025 Hemoglobin (Bld) [Mass/Vol] 7.5 g/dL Low 13.0-16.5 [facility] Immature granulocytes/100 WB C Auto (Bld)Ordered By: Hill Acuña on 01-05-2025 Immature granulocytes/100 WBC (Bld) 0.400 % 0.0-0.9 [facility] MCV (mean corpuscular volume ) determinationOrdered By: Hill Acuña on 01-05-2025 MCV (RBC) [Entitic vol] 86.4 fL 80-94 [facility] Mean corpuscular hemoglobin (MCH) determinationOrdered By: Hill Acuña on 01-05-2025 MCH (RBC) [Entitic mass] 29.1 pg 27.0-32.0 [facility] Monocyte percentageOrdered B y: Hill Acuña on 01-05-2025 Monocytes/100 WBC (Bld) 11.6 % High 0-10 [facility] Neutrophil percentageOrdered By: Hill Acuña on 01-05-2025 Neutrophils/100 WBC (Bld) 69.1 % 47-70 [facility] Platelet countOrdered By: Kvng Acuña on 01-05-2025 Platelets (Bld) [#/Vol] 81 10*3/uL Low 150-450 [facility] Potassium measurement (mass/ volume)Ordered By: Hill Acuña on 01-05-2025 Potassium (Unsp spec) [Mass/Vol] 3.6 mmol/L 3.3-5.1 [facility] RBC Auto (Bld) [#/Vol]Ordere d By: Hill Acuña on 01-05-2025 RBC (Bld) [#/Vol] 2.58 10*6/uL Low 4.6-6.2 [facility] Serum creatinine measurement (mass/volume)Ordered By: Hill Acuña on 01-05-2025 Creatinine [Mass/Vol] 0.95 mg/dL 0.70-1.20 [facility] Serum glucose measurement (m ass/volume)Ordered By: Hill Acuña on 01-05-2025 Glucose [Mass/Vol] 356 mg/dL High 70-99 [facility] Serum or plasma calcium roosevelt urement (mass/volume)Ordered By: Hill Acuña on 01-05-2025 Calcium [Mass/Vol] 7.9 mg/dL 7.6-11.0 [facility] Serum or plasma urea nitroge n measurement (mass/volume)Ordered By: Hill Acuña on 01-05-2025 Urea nitrogen [Mass/Vol] 11 mg/dL 4-19 [facility] Sodium levelOrdered By: Paulino Acuña on 01-05-2025 Sodium [Moles/Vol] 128 mmol/L Low 133-145 [facility] White blood cell (WBC) count Ordered By: Hill Acuña on 01-05-2025 WBC (Bld) [#/Vol] 7.0 10*3/uL 4.4-11.0 [facility] Bilirubin, totalOrdered By: Hill Acuña on 01-04-2025 Bilirubin [Mass/Vol] 0.90 mg/dL 0.00-1.30 [facility] Blood manual differential co mment interpretation (narrative result)Ordered By: Hill Acuña on 01-04-2025 Manual differential comment Marco Antonio (Bld) [Interp] SCANNED [facility] Magnesium measurement (mass/ volume)Ordered By: Hill Acuña on 01-04-2025 Magnesium (Unsp spec) [Mass/Vol] 1.3 mg/dL Low 1.5-2.2 [facility] No Panel InformationOrdered By: Hill Acuña on 01-04-2025 54 U/L High <38 [facility] Serum globulin measurementOr dered By: Hill Acuña on 01-04-2025 Globulin (S) [Mass/Vol] 2.9 g/dL 2.2-4.2 [facility] Serum or plasma alanine thomas otransferase (ALT) measurementOrdered By: Hill Acuña on 01-04-2025 ALT [Catalytic activity/Vol] 26 U/L <47 [facility] Serum or plasma albumin roosevelt urement (mass/volume)Ordered By: Hill Acuña on 01-04-2025 Albumin [Mass/Vol] 2.4 g/dL Low 3.5-5.0 [facility] Serum or plasma albumin/glob ulin mass ratioOrdered By: Hill Acuña on 01-04-2025 Albumin/Globulin [Mass ratio] 0.9 {ratio} 0.9-2.4 [facility] Serum or plasma alkaline kendrick sphatase measurementOrdered By: Hill Acuña on 01-04-2025 ALP [Catalytic activity/Vol] 171 U/L High 40-129 [facility] Total proteinOrdered By: Hugo Acuña on 01-04-2025 Protein [Mass/Vol] 5.3 g/dL Low 5.9-8.4 [facility] Absolute lymphocyte countOrd ered By: Roddy Reeves on 01-02-2025 Lymphocytes Auto (Unsp spec) [#/Vol] 1.55 10*3/uL 0.83-4.51 [facility] Anion gap in Serum or Plasma Ordered By: Roddy Reeves on 01-02-2025 Anion gap [Moles/Vol] 17 mmol/L High 5-15 [facility] Automated lymphocyte count a s percentage of total leukocytesOrdered By: Roddy Reeves on 01-02-2025 Lymphocytes/100 WBC Auto (Unsp spec) 12.2 % Low 19-41 [facility] BUN/creatinine ratioOrdered By: Roddy Reeves on 01-02-2025 Urea nitrogen/Creatinine [Mass ratio] 12.9 mg/mg 10-20 [facility] Basophil percentageOrdered B y: Roddy Reeves on 01-02-2025 Basophils/100 WBC (Bld) 0.4 % 0-1 [facility] Bilirubin Test strip Ql (U)O rdered By: Roddy Reeves on 01-02-2025 Bilirubin Ql (U) Negative Negative [facility] Bilirubin, totalOrdered By: Roddy Reeves on 01-02-2025 Bilirubin [Mass/Vol] 0.90 mg/dL 0.00-1.30 [facility] Carbon dioxide, total [Moles /volume] in Central venous bloodOrdered By: Roddy Reeves on 01-02-2025 CO2 [Moles/Vol] 19.6 mmol/L Low 21.0-32.0 [facility] Chloride assayOrdered By: Catrachito Reeves on 01-02-2025 Chloride [Moles/Vol] 95 mmol/L Low 98-108 [facility] Eosinophil percentageOrdered By: Roddy Reeves on 01-02-2025 Eosinophils/100 WBC (Bld) 6.9 % High 0-5 [facility] Erythrocyte distribution wid th ratioOrdered By: Roddy Reeves on 01-02-2025 Erythrocyte distribution width (RBC) [Ratio] 16.4 % High 11.6-14.6 [facility] Erythrocyte distribution wid th standard deviationOrdered By: Roddy Reeves on 01-02-2025 Erythrocyte distribution width (RBC) [Ratio] 51.1 fl High 35.1-43.9 [facility] Glomerular filtration rate ( GFR) estimation/1.73 sq m using serum, plasma, or whole bOrdered By: Roddy Reeves on 01-02-2025 GFR/1.73 sq M.predicted among non-blacks MDRD (S/P/Bld) [Vol rate/Area] 19 mL/min/{1.73_m2} Low >60 [facility] [facility] Auto (Bld) [Volum e fraction]Ordered By: Roddy Reeves on 01-02-2025 Hematocrit (Bld) [Volume fraction] 28.0 % Low 40-54 [facility] Hemoglobin measurementOrdere d By: Roddy Reeves on 01-02-2025 Hemoglobin (Bld) [Mass/Vol] 9.5 g/dL Low 13.0-16.5 [facility] Immature granulocytes/100 WB C Auto (Bld)Ordered By: Roddy Reeves on 01-02-2025 Immature granulocytes/100 WBC (Bld) 0.600 % 0.0-0.9 [facility] Ketones Test strip Ql (U)Ord ered By: Roddy Reeves on 01-02-2025 Ketones Ql (U) 5 mg/dl High Negative [facility] MCV (mean corpuscular volume ) determinationOrdered By: Roddy Reeves on 01-02-2025 MCV (RBC) [Entitic vol] 87.2 fL 80-94 [facility] Magnesium measurement (mass/ volume)Ordered By: Roddy Reeves on 01-02-2025 Magnesium (Unsp spec) [Mass/Vol] 2.0 mg/dL 1.5-2.2 [facility] Mean corpuscular hemoglobin (MCH) determinationOrdered By: Roddy Reeves on 01-02-2025 MCH (RBC) [Entitic mass] 29.6 pg 27.0-32.0 [facility] Monocyte percentageOrdered B y: Roddy Reeves on 01-02-2025 Monocytes/100 WBC (Bld) 11.9 % High 0-10 [facility] Mucus LM Ql (Urine sed)Order ed By: Roddy Reeves on 01-02-2025 Mucus Ql (Urine sed) 0 SEEN /hpf [facility] Neutrophil percentageOrdered By: Roddy Reeves on 01-02-2025 Neutrophils/100 WBC (Bld) 68.0 % 47-70 [facility] Nitrite Test strip Ql (U)Ord ered By: Roddy Reeves on 01-02-2025 Nitrite Ql (U) Negative Negative [facility] No Panel InformationOrdered By: Roddy Reeves on 01-02-2025 37 U/L <38 [facility] Platelet countOrdered By: Catrachito Reeves on 01-02-2025 Platelets (Bld) [#/Vol] 171 10*3/uL 150-450 [facility] Potassium measurement (mass/ volume)Ordered By: Roddy Reeves on 01-02-2025 Potassium (Unsp spec) [Mass/Vol] 2.6 mmol/L Low 3.3-5.1 [facility] Protein Test strip Ql (U)Ord ered By: Roddy Reeves on 01-02-2025 Protein Ql (U) 100 mg/dl High Negative [facility] RBC Auto (Bld) [#/Vol]Ordere d By: Roddy Reeves on 01-02-2025 RBC (Bld) [#/Vol] 3.21 10*6/uL Low 4.6-6.2 [facility] Serum creatinine measurement (mass/volume)Ordered By: Roddy Reeves on 01-02-2025 Creatinine [Mass/Vol] 3.54 mg/dL High 0.70-1.20 [facility] Serum globulin measurementOr dered By: Roddy Reeves on 01-02-2025 Globulin (S) [Mass/Vol] 3.4 g/dL 2.2-4.2 [facility] Serum glucose measurement (m ass/volume)Ordered By: Roddy Reeves on 01-02-2025 Glucose [Mass/Vol] 164 mg/dL High 70-99 [facility] Serum or plasma alanine thomas otransferase (ALT) measurementOrdered By: Roddy Reeves on 01-02-2025 ALT [Catalytic activity/Vol] 23 U/L <47 [facility] Serum or plasma albumin roosevelt urement (mass/volume)Ordered By: Roddy Reeves on 01-02-2025 Albumin [Mass/Vol] 2.8 g/dL Low 3.5-5.0 [facility] Serum or plasma albumin/glob ulin mass ratioOrdered By: Roddy Reeves on 01-02-2025 Albumin/Globulin [Mass ratio] 0.8 {ratio} Low 0.9-2.4 [facility] Serum or plasma alkaline kendrick sphatase measurementOrdered By: Roddy Reeves on 01-02-2025 ALP [Catalytic activity/Vol] 191 U/L High 40-129 [facility] Serum or plasma calcium roosevelt urement (mass/volume)Ordered By: Roddy Reeves on 01-02-2025 Calcium [Mass/Vol] 9.0 mg/dL 7.6-11.0 [facility] Serum or plasma ethanol roosevelt urement (mass/volume)Ordered By: Roddy Reeves on 01-02-2025 Ethanol [Mass/Vol] mg/dL <10.1 [facility] Serum or plasma urea nitroge n measurement (mass/volume)Ordered By: Roddy Reeves on 01-02-2025 Urea nitrogen [Mass/Vol] 46 mg/dL High 4-19 [facility] Sodium levelOrdered By: Valentín Reeves on 01-02-2025 Sodium [Moles/Vol] 132 mmol/L Low 133-145 [facility] Squamous epithelial cells de tection in urine sediment by light microscopyOrdered By: Roddy Reeves on 01-02-2025 Epithelial cells.squamous LM Ql (Urine sed) 0 SEEN /hpf 0-5 [facility] Total proteinOrdered By: Zoila Reeves on 01-02-2025 Protein [Mass/Vol] 6.1 g/dL 5.9-8.4 [facility] Urine clarityOrdered By: Zoila Reeves on 01-02-2025 Clarity (U) Turbid Clear [facility] Urine color determinationOrd ered By: Roddy Reeves on 01-02-2025 Color (U) Red Yellow [facility] Urine cultureOrdered By: Zoila Reeves on 01-02-2025 Bacteria identified Cx Nom (U) Yeast, not Mary albicans Abnormal [facility] Urine glucose detectionOrder ed By: Roddy Reeves on 01-02-2025 Glucose Ql (U) Normal mg/dl Normal [facility] Urine leukocyte esterase det ection by dipstickOrdered By: Roddy Reeves on 01-02-2025 Leukocyte esterase Test strip Ql (U) 500 /ul High Negative [facility] Urine pHOrdered By: Roddy gonzalez on 01-02-2025 pH (U) 6.0 [pH] 5.0 - 8.0 [facility] Urine sediment bacteria coun t by microscopy (number/high power field)Ordered By: Roddy Reeves on 01-02-2025 Bacteria LM.HPF (Urine sed) [#/Area] 3 /[HPF] None Seen [facility] Urine specific gravity measu rementOrdered By: Roddy Reeves on 01-02-2025 Specific gravity (U) [Rel density] 1.015 1.002-1.030 [facility] Urine urobilinogen measureme ntOrdered By: Roddy Reeves on 01-02-2025 Urobilinogen Ql (U) Normal mg/dl Normal [facility] Venous blood ammonia measure mentOrdered By: Roddy Reeves on 01-02-2025 Ammonia (P) [Moles/Vol] 40.4 umol/L 16-60 [facility] White blood cell (WBC) count Ordered By: Roddy Reeves on 01-02-2025 WBC (Bld) [#/Vol] 12.7 10*3/uL High 4.4-11.0 [facility] White blood cell countOrdere d By: Roddy Reeves on 01-02-2025 White blood cell count 25-50 SEEN /hpf 0-5 [facility] Absolute lymphocyte countOrd ered By: Mina Blood on 12-30-2024 Lymphocytes Auto (Unsp spec) [#/Vol] 1.31 10*3/uL 0.83-4.51 [facility] Anion gap in Serum or Plasma Ordered By: Mina Blood on 12-30-2024 Anion gap [Moles/Vol] 15 mmol/L 5-15 [facility] Automated lymphocyte count a s percentage of total leukocytesOrdered By: Mina Blood on 12-30-2024 Lymphocytes/100 WBC Auto (Unsp spec) 14.0 % Low 19-41 [facility] BUN/creatinine ratioOrdered By: Mina Blood on 12-30-2024 Urea nitrogen/Creatinine [Mass ratio] 14.1 mg/mg 10-20 [facility] Basophil percentageOrdered B y: Mina Blood on 12-30-2024 Basophils/100 WBC (Bld) 0.4 % 0-1 [facility] Bilirubin Test strip Ql (U)O rdered By: Mina Blood on 12-30-2024 Bilirubin Ql (U) Negative Negative [facility] Carbon dioxide, total [Moles /volume] in Central venous bloodOrdered By: Mina Blood on 12-30-2024 CO2 [Moles/Vol] 22.1 mmol/L 21.0-32.0 [facility] Chloride assayOrdered By: Marcella Blood on 12-30-2024 Chloride [Moles/Vol] 91 mmol/L Low 98-108 [facility] Eosinophil percentageOrdered By: Mina Blood on 12-30-2024 Eosinophils/100 WBC (Bld) 6.2 % High 0-5 [facility] Erythrocyte distribution wid th ratioOrdered By: Mina Blood on 12-30-2024 Erythrocyte distribution width (RBC) [Ratio] 16.1 % High 11.6-14.6 [facility] Erythrocyte distribution wid th standard deviationOrdered By: Mina Blood on 12-30-2024 Erythrocyte distribution width (RBC) [Ratio] 50.9 fl High 35.1-43.9 [facility] Glomerular filtration rate ( GFR) estimation/1.73 sq m using serum, plasma, or whole bOrdered By: Mina Blood on 12-30-2024 GFR/1.73 sq M.predicted among non-blacks MDRD (S/P/Bld) [Vol rate/Area] 37 mL/min/{1.73_m2} Low >60 [facility] deOrdered By: Mina Blood on 12-30-2024 Glucose [Mass/Vol] 453 mg/dL High 74-106 [facility] Hematocrit Auto (Bld) [Volum e fraction]Ordered By: Mina Blood on 12-30-2024 Hematocrit (Bld) [Volume fraction] 25.8 % Low 40-54 [facility] Hemoglobin measurementOrdere d By: Mina Blood on 12-30-2024 Hemoglobin (Bld) [Mass/Vol] 8.7 g/dL Low 13.0-16.5 [facility] Immature granulocytes/100 WB C Auto (Bld)Ordered By: Mina Blood on 12-30-2024 Immature granulocytes/100 WBC (Bld) 0.600 % 0.0-0.9 [facility] Ketones Test strip Ql (U)Ord ered By: Mina Blood on 12-30-2024 Ketones Ql (U) Negative Negative [facility] MCV (mean corpuscular volume ) determinationOrdered By: Mina Blood on 12-30-2024 MCV (RBC) [Entitic vol] 88.1 fL 80-94 [facility] Magnesium measurement (mass/ volume)Ordered By: Mina Blood on 12-30-2024 Magnesium (Unsp spec) [Mass/Vol] 1.3 mg/dL Low 1.5-2.2 [facility] Mean corpuscular hemoglobin (MCH) determinationOrdered By: Mina Blood on 12-30-2024 MCH (RBC) [Entitic mass] 29.7 pg 27.0-32.0 [facility] Monocyte percentageOrdered B y: Mina Blood on 12-30-2024 Monocytes/100 WBC (Bld) 9.1 % 0-10 [facility] Mucus LM Ql (Urine sed)Order ed By: Mina Blood on 12-30-2024 Mucus Ql (Urine sed) 0 SEEN /hpf [facility] Neutrophil percentageOrdered By: Mina Blood on 12-30-2024 Neutrophils/100 WBC (Bld) 69.7 % 47-70 [facility] Nitrite Test strip Ql (U)Ord ered By: Mina Blood on 12-30-2024 Nitrite Ql (U) Negative Negative [facility] Platelet countOrdered By: Marcella Blood on 12-30-2024 Platelets (Bld) [#/Vol] 131 10*3/uL Low 150-450 [facility] Potassium measurement (mass/ volume)Ordered By: Mina Blood on 12-30-2024 Potassium (Unsp spec) [Mass/Vol] 3.2 mmol/L Low 3.3-5.1 [facility] Protein Test strip Ql (U)Ord ered By: Mina Blood on 12-30-2024 Protein Ql (U) 100 mg/dl High Negative [facility] RBC Auto (Bld) [#/Vol]Ordere d By: Mina Blood on 05-29-2025 RBC (Bld) [#/Vol] 2.93 10*6/uL Low 4.6-6.2 [facility] Serum creatinine measurement (mass/volume)Ordered By: Mina Blood on 12-30-2024 Creatinine [Mass/Vol] 2.05 mg/dL High 0.70-1.20 [facility] Serum glucose measurement (m ass/volume)Ordered By: Mina Blood on 12-30-2024 Glucose [Mass/Vol] 608 mg/dL High 70-99 [facility] Serum or plasma calcium roosevelt urement (mass/volume)Ordered By: Mina Blood on 12-30-2024 Calcium [Mass/Vol] 9.1 mg/dL 7.6-11.0 [facility] Serum or plasma urea nitroge n measurement (mass/volume)Ordered By: Mina Blood on 12-30-2024 Urea nitrogen [Mass/Vol] 29 mg/dL High 4-19 [facility] Sodium levelOrdered By: Magen Blood on 12-30-2024 Sodium [Moles/Vol] 128 mmol/L Low 133-145 [facility] Squamous epithelial cells de tection in urine sediment by light microscopyOrdered By: Mina Blood on 12-30-2024 Epithelial cells.squamous LM Ql (Urine sed) 0-5 SEEN /hpf 0-5 [facility] Transitional cells detection in urine sediment by light microscopyOrdered By: Mina Blood on 12-30-2024 Transitional cells LM Ql (Urine sed) 0-5 SEEN /hpf 0-5 [facility] Troponin T.cardiac [Mass/vol ume] in Serum or Plasma by High sensitivity methodOrdered By: Mina Blood on 12-30-2024 Troponin T.cardiac High sensitivity method [Mass/Vol] 20 ng/L <22 [facility] Troponin T.cardiac High sensitivity method [Mass/Vol] 19 ng/L <22 [facility] Urine clarityOrdered By: Ever Blood on 12-30-2024 Clarity (U) Cloudy Clear [facility] Urine color determinationOrd ered By: Mina Blood on 12-30-2024 Color (U) Lexis Yellow [facility] Urine cultureOrdered By: Ever Blood on 12-30-2024 Bacteria identified Cx Nom (U) GPC Poss Enterococcus sp Abnormal [facility] Bacteria identified Cx Nom (U) Positive Abnormal [facility] Urine glucose detectionOrder ed By: Mina Blood on 12-30-2024 Glucose Ql (U) 1000 mg/dl High Normal [facility] Urine leukocyte esterase det ection by dipstickOrdered By: Mina Blood on 12-30-2024 Leukocyte esterase Test strip Ql (U) 500 /ul High Negative [facility] Urine pHOrdered By: Mina ferrer on 12-30-2024 pH (U) 6.5 [pH] 5.0 - 8.0 [facility] Urine sediment bacteria coun t by microscopy (number/high power field)Ordered By: Mina Blood on 12-30-2024 Bacteria LM.HPF (Urine sed) [#/Area] 1 /[HPF] None Seen [facility] Urine specific gravity measu rementOrdered By: Mina Blood on 12-30-2024 Specific gravity (U) [Rel density] 1.010 1.002-1.030 [facility] Urine urobilinogen measureme ntOrdered By: Mina Blood on 12-30-2024 Urobilinogen Ql (U) Normal mg/dl Normal [facility] White blood cell (WBC) count Ordered By: Mina Blood on 12-30-2024 WBC (Bld) [#/Vol] 9.4 10*3/uL 4.4-11.0 [facility] White blood cell countOrdere d By: Mina Blood on 12-30-2024 White blood cell count >100 SEEN /hpf 0-5 [facility] Absolute lymphocyte countOrd ered By: Boone Carvajal on 12-26-2024 Lymphocytes Auto (Unsp spec) [#/Vol] 1.69 10*3/uL 0.83-4.51 [facility] Activated partial thrombopla stin time (aPTT) in platelet poor plasma by coagulation aOrdered By: Boone Carvajal on 12-26-2024 aPTT Coag (PPP) [Time] 36.3 s High 24.1-36.2 [facility] Anion gap in Serum or Plasma Ordered By: Boone Carvajal on 05-25-2025 Anion gap [Moles/Vol] 14 mmol/L 5-15 [facility] Automated lymphocyte count a s percentage of total leukocytesOrdered By: Boone Carvajal on 12-26-2024 Lymphocytes/100 WBC Auto (Unsp spec) 15.3 % Low 19-41 [facility] BUN/creatinine ratioOrdered By: Boone Carvajal on 12-26-2024 Urea nitrogen/Creatinine [Mass ratio] 10.3 mg/mg 10-20 [facility] Basophil percentageOrdered B y: Boone Carvajal on 12-26-2024 Basophils/100 WBC (Bld) 0.5 % 0-1 [facility] Beta-hydroxybutyrateOrdered By: Boone Carvajal on 12-26-2024 Beta hydroxybutyrate [Mass/Vol] 0.1 mmol/L 0.0-0.3 [facility] Bilirubin Test strip Ql (U)O rdered By: Boone Carvajal on 12-26-2024 Bilirubin Ql (U) Negative Negative [facility] Bilirubin, totalOrdered By: Boone Carvajal on 12-26-2024 Bilirubin [Mass/Vol] 1.04 mg/dL 0.00-1.30 [facility] Carbon dioxide, total [Moles /volume] in Central venous bloodOrdered By: Boone Carvajal on 12-26-2024 CO2 [Moles/Vol] 20.4 mmol/L Low 21.0-32.0 [facility] Chloride assayOrdered By: Hunter Carvajal on 12-26-2024 Chloride [Moles/Vol] 100 mmol/L 98-108 [facility] Eosinophil percentageOrdered By: Boone Carvajal on 12-26-2024 Eosinophils/100 WBC (Bld) 5.8 % High 0-5 [facility] Erythrocyte distribution wid th ratioOrdered By: Boone Carvajal on 12-26-2024 Erythrocyte distribution width (RBC) [Ratio] 16.3 % High 11.6-14.6 [facility] Erythrocyte distribution wid th standard deviationOrdered By: Boone Carvajal on 12-26-2024 Erythrocyte distribution width (RBC) [Ratio] 54.4 fl High 35.1-43.9 [facility] Glomerular filtration rate ( GFR) estimation/1.73 sq m using serum, plasma, or whole bOrdered By: Boone Carvajal on 12-26-2024 GFR/1.73 sq M.predicted among non-blacks MDRD (S/P/Bld) [Vol rate/Area] 30 mL/min/{1.73_m2} Low >60 [facility] Hematocrit Auto (Bld) [Volum e fraction]Ordered By: Boone Carvajal on 12-26-2024 Hematocrit (Bld) [Volume fraction] 29.6 % Low 40-54 [facility] Hemoglobin measurementOrdere d By: Boone Carvajal on 12-26-2024 Hemoglobin (Bld) [Mass/Vol] 9.6 g/dL Low 13.0-16.5 [facility] Immature granulocytes/100 WB C Auto (Bld)Ordered By: Boone Carvajal on 12-26-2024 Immature granulocytes/100 WBC (Bld) 0.500 % 0.0-0.9 [facility] Ketones Test strip Ql (U)Ord ered By: Boone Carvajal on 12-26-2024 Ketones Ql (U) 5 mg/dl High Negative [facility] MCV (mean corpuscular volume ) determinationOrdered By: Boone Carvajal on 12-26-2024 MCV (RBC) [Entitic vol] 90.8 fL 80-94 [facility] Mean corpuscular hemoglobin (MCH) determinationOrdered By: Boone Carvajal on 12-26-2024 MCH (RBC) [Entitic mass] 29.4 pg 27.0-32.0 [facility] Monocyte percentageOrdered B y: Boone Carvajal on 12-26-2024 Monocytes/100 WBC (Bld) 7.4 % 0-10 [facility] Mucus LM Ql (Urine sed)Order ed By: Boone Carvajal on 12-26-2024 Mucus Ql (Urine sed) 0 SEEN /hpf [facility] Neutrophil percentageOrdered By: Boone Carvajal on 12-26-2024 Neutrophils/100 WBC (Bld) 70.5 % High 47-70 [facility] Nitrite Test strip Ql (U)Ord ered By: Boone Carvajal on 12-26-2024 Nitrite Ql (U) Negative Negative [facility] No Panel InformationOrdered By: Boone Carvajal on 12-26-2024 58 U/L High <38 [facility] Platelet countOrdered By: Hunter Carvajal on 12-26-2024 Platelets (Bld) [#/Vol] 139 10*3/uL Low 150-450 [facility] Potassium measurement (mass/ volume)Ordered By: Boone Carvajal on 12-26-2024 Potassium (Unsp spec) [Mass/Vol] 3.5 mmol/L 3.3-5.1 [facility] Protein Test strip Ql (U)Ord ered By: Boone Carvajal on 12-26-2024 Protein Ql (U) 500 mg/dl High Negative [facility] Prothrombin timeOrdered By: Boone Carvajal on 12-26-2024 PT Coag (PPP) [Time] 18.5 s High 11.7-14.9 [facility] RBC Auto (Bld) [#/Vol]Ordere d By: Boone Carvajal on 12-26-2024 RBC (Bld) [#/Vol] 3.26 10*6/uL Low 4.6-6.2 [facility] Serum creatinine measurement (mass/volume)Ordered By: Boone Carvajal on 12-26-2024 Creatinine [Mass/Vol] 2.42 mg/dL High 0.70-1.20 [facility] Serum globulin measurementOr dered By: Boone Carvajal on 12-26-2024 Globulin (S) [Mass/Vol] 3.5 g/dL 2.2-4.2 [facility] Serum glucose measurement (m ass/volume)Ordered By: Boone Carvajal on 12-26-2024 Glucose [Mass/Vol] 386 mg/dL High 70-99 [facility] Serum or plasma alanine thomas otransferase (ALT) measurementOrdered By: Boone Carvajal on 12-26-2024 ALT [Catalytic activity/Vol] 27 U/L <47 [facility] Serum or plasma albumin roosevelt urement (mass/volume)Ordered By: Boone Carvajal on 12-26-2024 Albumin [Mass/Vol] 2.8 g/dL Low 3.5-5.0 [facility] Serum or plasma albumin/glob ulin mass ratioOrdered By: Boone Carvajal on 12-26-2024 Albumin/Globulin [Mass ratio] 0.8 {ratio} Low 0.9-2.4 [facility] Serum or plasma alkaline kendrick sphatase measurementOrdered By: Boone Carvajal on 12-26-2024 ALP [Catalytic activity/Vol] 207 U/L High 40-129 [facility] Serum or plasma calcium roosevelt urement (mass/volume)Ordered By: Boone Carvajal on 12-26-2024 Calcium [Mass/Vol] 8.9 mg/dL 7.6-11.0 [facility] Serum or plasma urea nitroge n measurement (mass/volume)Ordered By: Boone Carvajal on 12-26-2024 Urea nitrogen [Mass/Vol] 25 mg/dL High 4-19 [facility] Sodium levelOrdered By: Boone Carvajal on 12-26-2024 Sodium [Moles/Vol] 135 mmol/L 133-145 [facility] Squamous epithelial cells de tection in urine sediment by light microscopyOrdered By: Boone Carvajal on 12-26-2024 Epithelial cells.squamous LM Ql (Urine sed) 0 SEEN /hpf 0-5 [facility] Total proteinOrdered By: Juanita Carvajal on 12-26-2024 Protein [Mass/Vol] 6.3 g/dL 5.9-8.4 [facility] Urine clarityOrdered By: Juanita Carvajal on 12-26-2024 Clarity (U) Cloudy Clear [facility] Urine color determinationOrd ered By: Boone Carvajal on 12-26-2024 Color (U) Lexis Yellow [facility] Urine cultureOrdered By: Juanita Carvajal on 12-26-2024 Bacteria identified Cx Nom (U) Enterococcus 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 [facility] Urine glucose detectionOrder ed By: Boone Carvajal on 12-26-2024 Glucose Ql (U) Normal mg/dl Normal [facility] Urine leukocyte esterase det ection by dipstickOrdered By: Boone Carvajal on 12-26-2024 Leukocyte esterase Test strip Ql (U) 500 /ul High Negative [facility] Urine pHOrdered By: Boone romo on 12-26-2024 pH (U) 6.0 [pH] 5.0 - 8.0 [facility] Urine sediment bacteria coun t by microscopy (number/high power field)Ordered By: Boone Carvajal on 12-26-2024 Bacteria LM.HPF (Urine sed) [#/Area] 0 /[HPF] None Seen [facility] Urine specific gravity measu rementOrdered By: Boone Carvajal on 12-26-2024 Specific gravity (U) [Rel density] 1.015 1.002-1.030 [facility] Urine urobilinogen measureme ntOrdered By: Boone Carvajal on 12-26-2024 Urobilinogen Ql (U) Normal mg/dl Normal [facility] Venous blood ammonia measure mentOrdered By: Boone Carvajal on 12-26-2024 Ammonia (P) [Moles/Vol] 114.0 umol/L High 16-60 [facility] White blood cell (WBC) count Ordered By: Boone Carvajal on 12-26-2024 WBC (Bld) [#/Vol] 11.0 10*3/uL 4.4-11.0 [facility] White blood cell countOrdere d By: Boone Carvajal on 12-26-2024 White blood cell count 25-50 SEEN /hpf 0-5 [facility] Absolute lymphocyte countOrd ered By: Josy Elias on 12-07-2024 Lymphocytes Auto (Unsp spec) [#/Vol] 1.71 10*3/uL 0.83-4.51 [facility] Anion gap in Serum or Plasma Ordered By: Josy Elias on 12-07-2024 Anion gap [Moles/Vol] 12 mmol/L 5-15 [facility] Automated lymphocyte count a s percentage of total leukocytesOrdered By: Josy Elias on 12-07-2024 Lymphocytes/100 WBC Auto (Unsp spec) 18.4 % Low 19-41 [facility] BUN/creatinine ratioOrdered By: Josy Elias on 12-07-2024 Urea nitrogen/Creatinine [Mass ratio] 10.0 mg/mg 10-20 [facility] Basophil percentageOrdered B y: Josy Elias on 12-07-2024 Basophils/100 WBC (Bld) 0.6 % 0-1 [facility] Bilirubin, totalOrdered By: Josy Elias on 12-07-2024 Bilirubin [Mass/Vol] 1.21 mg/dL 0.00-1.30 [facility] CNPTOUTREACHon 12-07-[address] [facility] Carbon dioxide, total [Moles /volume] in Central venous bloodOrdered By: Josy Elias on 12-07-2024 CO2 [Moles/Vol] 20.0 mmol/L Low 21.0-32.0 [facility] Chloride assayOrdered By: Monica Elias on 12-07-2024 Chloride [Moles/Vol] 103 mmol/L 98-108 [facility] Eosinophil percentageOrdered By: Josy Elias on 12-07-2024 Eosinophils/100 WBC (Bld) 5.1 % High 0-5 [facility] Erythrocyte distribution wid th ratioOrdered By: Josy Elias on 12-07-2024 Erythrocyte distribution width (RBC) [Ratio] 16.9 % High 11.6-14.6 [facility] Erythrocyte distribution wid th standard deviationOrdered By: Josy Elias on 12-07-2024 Erythrocyte distribution width (RBC) [Ratio] 57.4 fl High 35.1-43.9 [facility] Gamma glutamyl transferase ( GGT) measurementOrdered By: Josy Elias on 12-07-2024 Amylase [Catalytic activity/Vol] 103 U/L High 0-65 [facility] Glomerular filtration rate ( GFR) estimation/1.73 sq m using serum, plasma, or whole bOrdered By: Josy Elias on 12-07-2024 GFR/1.73 sq M.predicted among non-blacks MDRD (S/P/Bld) [Vol rate/Area] 44 mL/min/{1.73_m2} Low >60 [facility] Hematocrit Auto (Bld) [Volum e fraction]Ordered By: Josy Elias on 12-07-2024 Hematocrit (Bld) [Volume fraction] 26.2 % Low 40-54 [facility] Hemoglobin A1c percentageOrd ered By: Josy Elias on 12-07-2024 HbA1c (Bld) [Mass fraction] 7.2 % High <5.7 [facility] Hemoglobin measurementOrdere d By: Josy Elias on 12-07-2024 Hemoglobin (Bld) [Mass/Vol] 8.5 g/dL Low 13.0-16.5 [facility] Immature granulocytes/100 WB C Auto (Bld)Ordered By: Josy Elias on 12-07-2024 Immature granulocytes/100 WBC (Bld) 0.300 % 0.0-0.9 [facility] MCV (mean corpuscular volume ) determinationOrdered By: Josy Elias on 12-07-2024 MCV (RBC) [Entitic vol] 93.2 fL 80-94 [facility] [place] Mean corpuscular hemoglobin (MCH) determinationOrdered By: Josy Elias on 12-07-2024 MCH (RBC) [Entitic mass] 30.2 pg 27.0-32.0 [facility] Monocyte percentageOrdered B y: Josy Elias on 12-07-2024 Monocytes/100 WBC (Bld) 12.1 % High 0-10 [facility] [place] Neutrophil percentageOrdered By: Josy Elias on 12-07-2024 Neutrophils/100 WBC (Bld) 63.5 % 47-70 [facility] No Panel InformationOrdered By: Josy Elias on 12-07-2024 37 U/L <38 [facility] Platelet countOrdered By: Monica Elias on 12-07-2024 Platelets (Bld) [#/Vol] 145 10*3/uL Low 150-450 [facility] Potassium measurement (mass/ volume)Ordered By: Josy Elias on 12-07-2024 Potassium (Unsp spec) [Mass/Vol] 3.3 mmol/L 3.3-5.1 [facility] RBC Auto (Bld) [#/Vol]Ordere d By: Josy Elias on 12-07-2024 RBC (Bld) [#/Vol] 2.81 10*6/uL Low 4.6-6.2 [facility] Serum creatinine measurement (mass/volume)Ordered By: Josy Elias on 12-07-2024 Creatinine [Mass/Vol] 1.78 mg/dL High 0.70-1.20 [facility] Serum globulin measurementOr dered By: Josy Elias on 12-07-2024 Globulin (S) [Mass/Vol] 2.9 g/dL 2.2-4.2 [facility] [place] Serum glucose measurement (m ass/volume)Ordered By: Josy Elias on 12-07-2024 Glucose [Mass/Vol] 185 mg/dL High 70-99 [facility] Serum or plasma alanine thomas otransferase (ALT) measurementOrdered By: Josy Elias on 12-07-2024 ALT [Catalytic activity/Vol] 24 U/L <47 [facility] Serum or plasma albumin roosevelt urement (mass/volume)Ordered By: Josy Elias on 12-07-2024 Albumin [Mass/Vol] 2.6 g/dL Low 3.5-5.0 [facility] Serum or plasma albumin/glob ulin mass ratioOrdered By: Josy Elias on 12-07-2024 Albumin/Globulin [Mass ratio] 0.9 {ratio} 0.9-2.4 [facility] Serum or plasma alkaline kendrick sphatase measurementOrdered By: Josy Elias on 12-07-2024 ALP [Catalytic activity/Vol] 241 U/L High 40-129 [facility] Serum or plasma calcium roosevelt urement (mass/volume)Ordered By: Josy Elias on 12-07-2024 Calcium [Mass/Vol] 8.2 mg/dL 7.6-11.0 [facility] Serum or plasma urea nitroge n measurement (mass/volume)Ordered By: Josy Elias on 12-07-2024 Urea nitrogen [Mass/Vol] 18 mg/dL 4-19 [facility] Sodium levelOrdered By: Terrance Elias on 12-07-2024 Sodium [Moles/Vol] 136 mmol/L 133-145 [facility] Total proteinOrdered By: Chinedu Elias on 12-07-2024 Protein [Mass/Vol] 5.5 g/dL Low 5.9-8.4 [facility] White blood cell (WBC) count Ordered By: Josy Elias on 12-07-2024 WBC (Bld) [#/Vol] 9.3 10*3/uL 4.4-11.0 [facility] Absolute lymphocyte countOrd ered By: Hill Acuña on 12-02-2024 Lymphocytes Auto (Unsp spec) [#/Vol] 0.92 10*3/uL 0.83-4.51 [facility] Anion gap in Serum or Plasma Ordered By: Hill Acuña on 12-02-2024 Anion gap [Moles/Vol] 7 mmol/L 5-15 [facility] Automated lymphocyte count a s percentage of total leukocytesOrdered By: Hill Acuña on 12-02-2024 Lymphocytes/100 WBC Auto (Unsp spec) 15.7 % Low 19-41 [facility] BUN/creatinine ratioOrdered By: Hill Acuña on 12-02-2024 Urea nitrogen/Creatinine [Mass ratio] 8.1 mg/mg Low 10-20 [facility] Basophil percentageOrdered B y: Hill Acuña on 12-02-2024 Basophils/100 WBC (Bld) 0.5 % 0-1 [facility] Bilirubin, totalOrdered By: Hill Acuña on 12-02-2024 Bilirubin [Mass/Vol] 1.07 mg/dL 0.00-1.30 [facility] Carbon dioxide, total [Moles /volume] in Central venous bloodOrdered By: Hill Acuña on 12-02-2024 CO2 [Moles/Vol] 21.0 mmol/L 21.0-32.0 [facility] Chloride assayOrdered By: Kvng Acuña on 12-02-2024 Chloride [Moles/Vol] 104 mmol/L 98-108 [facility] Eosinophil percentageOrdered By: Hill Acuña on 12-02-2024 Eosinophils/100 WBC (Bld) 3.6 % 0-5 [facility] Erythrocyte distribution wid th ratioOrdered By: Hill Acuña on 12-02-2024 Erythrocyte distribution width (RBC) [Ratio] 16.2 % High 11.6-14.6 [facility] Erythrocyte distribution wid th standard deviationOrdered By: Hill Acuña on 12-02-2024 Erythrocyte distribution width (RBC) [Ratio] 53.0 fl High 35.1-43.9 [facility] Glomerular filtration rate ( GFR) estimation/1.73 sq m using serum, plasma, or whole bOrdered By: Hill Acuña on 12-02-2024 GFR/1.73 sq M.predicted among non-blacks MDRD (S/P/Bld) [Vol rate/Area] 98 mL/min/{1.73_m2} >60 [facility] Glucose measurement at [facility] deOrdered By: Hill Acuña on 12-02-2024 Glucose [Mass/Vol] 259 mg/dL High 74-106 [facility] Hematocrit Auto (Bld) [Volum e fraction]Ordered By: Hill Acuña on 12-02-2024 Hematocrit (Bld) [Volume fraction] 21.9 % Low 40-54 [facility] Hemoglobin measurementOrdere d By: Hill Acuña on 12-02-2024 Hemoglobin (Bld) [Mass/Vol] 7.2 g/dL Low 13.0-16.5 [facility] Immature granulocytes/100 WB C Auto (Bld)Ordered By: Hill Acuña on 12-02-2024 Immature granulocytes/100 WBC (Bld) 0.500 % 0.0-0.9 [facility] MCV (mean corpuscular volume ) determinationOrdered By: Hill Acuña on 12-02-2024 MCV (RBC) [Entitic vol] 89.8 fL 80-94 [facility] [place] Magnesium measurement (mass/ volume)Ordered By: Hill Acuña on 12-02-2024 Magnesium (Unsp spec) [Mass/Vol] 1.6 mg/dL 1.5-2.2 [facility] Mean corpuscular hemoglobin (MCH) determinationOrdered By: Hill Acuña on 12-02-2024 MCH (RBC) [Entitic mass] 29.5 pg 27.0-32.0 [facility] Monocyte percentageOrdered B y: Hill Acuña on 12-02-2024 Monocytes/100 WBC (Bld) 13.3 % High 0-10 [facility] [place] Neutrophil percentageOrdered By: Hill Acuña on 12-02-2024 Neutrophils/100 WBC (Bld) 66.4 % 47-70 [facility] No Panel InformationOrdered By: Hill Acuña on 12-02-2024 58 U/L High <38 [facility] Platelet countOrdered By: Kvng Acuña on 12-02-2024 Platelets (Bld) [#/Vol] 100 10*3/uL Low 150-450 [facility] Potassium measurement (mass/ volume)Ordered By: Hill Acuña on 12-02-2024 Potassium (Unsp spec) [Mass/Vol] 3.8 mmol/L 3.3-5.1 [facility] RBC Auto (Bld) [#/Vol]Ordere d By: Hill Acuña on 12-02-2024 RBC (Bld) [#/Vol] 2.44 10*6/uL Low 4.6-6.2 [facility] Serum creatinine measurement (mass/volume)Ordered By: Hill Acuña on 12-02-2024 Creatinine [Mass/Vol] 0.90 mg/dL 0.70-1.20 [facility] Serum globulin measurementOr dered By: Hill Acuña on 12-02-2024 Globulin (S) [Mass/Vol] 2.6 g/dL 2.2-4.2 [facility] Serum glucose measurement (m ass/volume)Ordered By: Hill Acuña on 12-02-2024 Glucose [Mass/Vol] 221 mg/dL High 70-99 [facility] Serum or plasma alanine thomas otransferase (ALT) measurementOrdered By: Hill Acuña on 12-02-2024 ALT [Catalytic activity/Vol] 33 U/L <47 [facility] Serum or plasma albumin roosevelt urement (mass/volume)Ordered By: Hill Acuña on 12-02-2024 Albumin [Mass/Vol] 2.5 g/dL Low 3.5-5.0 [facility] Serum or plasma albumin/glob ulin mass ratioOrdered By: Hill Acuña on 12-02-2024 Albumin/Globulin [Mass ratio] 1.0 {ratio} 0.9-2.4 [facility] Serum or plasma alkaline kendrick sphatase measurementOrdered By: Hill Acuña on 12-02-2024 ALP [Catalytic activity/Vol] 219 U/L High 40-129 [facility] Serum or plasma calcium roosevelt urement (mass/volume)Ordered By: Hill Acuña on 12-02-2024 Calcium [Mass/Vol] 7.8 mg/dL 7.6-11.0 [facility] Serum or plasma urea nitroge n measurement (mass/volume)Ordered By: Hill Acuña on 12-02-2024 Urea nitrogen [Mass/Vol] 7 mg/dL 4-19 [facility] Sodium levelOrdered By: Paulino Acuña on 12-02-2024 Sodium [Moles/Vol] 132 mmol/L Low 133-145 [facility] Total proteinOrdered By: Hugo Acuña on 12-02-2024 Protein [Mass/Vol] 5.1 g/dL Low 5.9-8.4 [facility] Trough vancomycin levelOrder ed By: Maria Guadalupe Shore on 12-02-2024 Vancomycin trough [Mass/Vol] 19.6 ug/mL High 5.0-15.0 [facility] White blood cell (WBC) count Ordered By: Hill Acuña on 12-02-2024 WBC (Bld) [#/Vol] 5.9 10*3/uL 4.4-11.0 [facility] Platelet estimateOrdered By: Hill Acuña on 11-30-2024 Platelets LM Ql (Bld) MOD DEC ADEQ [facility] Serum or plasma vancomycin m easurement (mass/volume)Ordered By: Kathie Powers on 11-30-2024 Vancomycin [Mass/Vol] 17.7 ug/mL High 0.0-15.0 [facility] Prothrombin timeOrdered By: Kathie Powers on 11-29-2024 PT Coag (PPP) [Time] 21.1 s High 11.7-14.9 [facility] Bilirubin Test strip Ql (U)O rdered By: Rachel Joiner on 11-28-2024 Bilirubin Ql (U) Negative Negative [facility] Bilirubin directOrdered By: Rachel Joiner on 11-28-2024 Bilirubin.direct [Mass/Vol] 0.72 mg/dL High 0.00-0.30 [facility] Ketones Test strip Ql (U)Ord ered By: Rachel Joiner on 11-28-2024 Ketones Ql (U) 5 mg/dl High Negative [facility] Mucus LM Ql (Urine sed)Order ed By: Rachel Joiner on 11-28-2024 Mucus Ql (Urine sed) 0 SEEN /hpf [facility] Nitrite Test strip Ql (U)Ord ered By: Rachel Joiner on 11-28-2024 Nitrite Ql (U) Positive High Negative [facility] Protein Test strip Ql (U)Ord ered By: Rachel Joiner on 11-28-2024 Protein Ql (U) 100 mg/dl High Negative [facility] Squamous epithelial cells de tection in urine sediment by light microscopyOrdered By: Rachel Joiner on 11-28-2024 Epithelial cells.squamous LM Ql (Urine sed) 0-5 SEEN /hpf 0-5 [facility] Urine clarityOrdered By: Shi Joiner on 11-28-2024 Clarity (U) Cloudy Clear [facility] Urine color determinationOrd ered By: Rachel Joiner on 11-28-2024 Color (U) Lexis Yellow [facility] Urine cultureOrdered By: Tyree Powers on 11-28-2024 Bacteria identified Cx Nom (U) ESBL Klebsiella pneumoniae pne Abnormal [facility] Urine glucose detectionOrder ed By: Rachel Joiner on 11-28-2024 Glucose Ql (U) Normal mg/dl Normal [facility] Urine leukocyte esterase det ection by dipstickOrdered By: Rachel Joiner on 11-28-2024 Leukocyte esterase Test strip Ql (U) 500 /ul High Negative [facility] Urine pHOrdered By: Rachel silva on 11-28-2024 pH (U) 6.5 [pH] 5.0 - 8.0 [facility] Urine sediment bacteria coun t by microscopy (number/high power field)Ordered By: Rachel Joiner on 11-28-2024 Bacteria LM.HPF (Urine sed) [#/Area] 1 /[HPF] None Seen [facility] Urine specific gravity measu rementOrdered By: Rachel Joiner on 11-28-2024 Specific gravity (U) [Rel density] 1.010 1.002-1.030 [facility] Urine urobilinogen measureme ntOrdered By: Rachel Joiner on 11-28-2024 Urobilinogen Ql (U) Normal mg/dl Normal [facility] Venous blood ammonia measure mentOrdered By: Rachel Joiner on 11-28-2024 Ammonia (P) [Moles/Vol] 68.4 umol/L High 16-60 [facility] White blood cell countOrdere d By: Rachel Joiner on 11-28-2024 White blood cell count 50-100 SEEN /hpf 0-5 [facility] Absolute lymphocyte countOrd ered By: Anurag Irene on 11-25-2024 Lymphocytes Auto (Unsp spec) [#/Vol] 0.92 10*3/uL 0.83-4.51 [facility] Anion gap in Serum or Plasma Ordered By: Anurag Irene on 11-25-2024 Anion gap [Moles/Vol] 8 mmol/L 5-15 [facility] Automated lymphocyte count a s percentage of total leukocytesOrdered By: Anurag Irene on 11-25-2024 Lymphocytes/100 WBC Auto (Unsp spec) 16.7 % Low 19-41 [facility] BUN/creatinine ratioOrdered By: Anurag Irene on 11-25-2024 Urea nitrogen/Creatinine [Mass ratio] 9.2 mg/mg Low 10-20 [facility] Basophil percentageOrdered B y: Anurag Irene on 11-25-2024 Basophils/100 WBC (Bld) 0.4 % 0-1 [facility] Bilirubin, totalOrdered By: Anurag Irene on 11-25-2024 Bilirubin [Mass/Vol] 1.07 mg/dL 0.00-1.30 [facility] Carbon dioxide, total [Moles /volume] in Central venous bloodOrdered By: Anurag Irene on 11-25-2024 CO2 [Moles/Vol] 19.3 mmol/L Low 21.0-32.0 [facility] Chloride assayOrdered By: Francois Irene on 11-25-2024 Chloride [Moles/Vol] 108 mmol/L 98-108 [facility] Eosinophil percentageOrdered By: Anurag Irene on 11-25-2024 Eosinophils/100 WBC (Bld) 4.2 % 0-5 [facility] Erythrocyte distribution wid th ratioOrdered By: Anurag Irene on 11-25-2024 Erythrocyte distribution width (RBC) [Ratio] 15.8 % High 11.6-14.6 [facility] Erythrocyte distribution wid th standard deviationOrdered By: Anurag Irene on 11-25-2024 Erythrocyte distribution width (RBC) [Ratio] 52.9 fl High 35.1-43.9 [facility] Glomerular filtration rate ( GFR) estimation/1.73 sq m using serum, plasma, or whole bOrdered By: Anurag Irene on 11-25-2024 GFR/1.73 sq M.predicted among non-blacks MDRD (S/P/Bld) [Vol rate/Area] 100 mL/min/{1.73_m2} >60 [facility] Glucose measurement at [facility] deOrdered By: Anurag Irene on 11-25-2024 Glucose [Mass/Vol] 222 mg/dL High 74-106 [facility] Hematocrit Auto (Bld) [Volum e fraction]Ordered By: Anurag Irene on 11-25-2024 Hematocrit (Bld) [Volume fraction] 21.5 % Low 40-54 [facility] Hemoglobin measurementOrdere d By: Anurag Irene on 11-25-2024 Hemoglobin (Bld) [Mass/Vol] 7.0 g/dL Low 13.0-16.5 [facility] Immature granulocytes/100 WB C Auto (Bld)Ordered By: Anurag Irene on 11-25-2024 Immature granulocytes/100 WBC (Bld) 0.400 % 0.0-0.9 [facility] MCV (mean corpuscular volume ) determinationOrdered By: Anurag Irene on 11-25-2024 MCV (RBC) [Entitic vol] 93.1 fL 80-94 [facility] [place] Mean corpuscular hemoglobin (MCH) determinationOrdered By: Anurag Irene on 11-25-2024 MCH (RBC) [Entitic mass] 30.3 pg 27.0-32.0 [facility] Monocyte percentageOrdered B y: Anurag Irene on 11-25-2024 Monocytes/100 WBC (Bld) 12.7 % High 0-10 [facility] Neutrophil percentageOrdered By: Anurag Irene on 11-25-2024 Neutrophils/100 WBC (Bld) 65.6 % 47-70 [facility] No Panel InformationOrdered By: Anurag Irene on 11-25-2024 60 U/L High <38 [facility] Platelet countOrdered By: Francois Irene on 11-25-2024 Platelets (Bld) [#/Vol] 82 10*3/uL Low 150-450 [facility] Potassium measurement (mass/ volume)Ordered By: Anurag Irene on 11-25-2024 Potassium (Unsp spec) [Mass/Vol] 4.2 mmol/L 3.3-5.1 [facility] RBC Auto (Bld) [#/Vol]Ordere d By: Anurag Irene on 11-25-2024 RBC (Bld) [#/Vol] 2.31 10*6/uL Low 4.6-6.2 [facility] Serum creatinine measurement (mass/volume)Ordered By: Anurag Irene on 11-25-2024 Creatinine [Mass/Vol] 0.86 mg/dL 0.70-1.20 [facility] Serum globulin measurementOr dered By: Anurag Irene on 11-25-2024 Globulin (S) [Mass/Vol] 2.2 g/dL 2.2-4.2 [facility] Serum glucose measurement (m ass/volume)Ordered By: Anurag Irene on 11-25-2024 Glucose [Mass/Vol] 179 mg/dL High 70-99 [facility] Serum or plasma alanine thomas otransferase (ALT) measurementOrdered By: Anurag Irene on 11-25-2024 ALT [Catalytic activity/Vol] 41 U/L <47 [facility] Serum or plasma albumin roosevelt urement (mass/volume)Ordered By: Anurag Irene on 11-25-2024 Albumin [Mass/Vol] 2.7 g/dL Low 3.5-5.0 [facility] Serum or plasma albumin/glob ulin mass ratioOrdered By: Anurag Irene on 11-25-2024 Albumin/Globulin [Mass ratio] 1.2 {ratio} 0.9-2.4 [facility] Serum or plasma alkaline kendrick sphatase measurementOrdered By: Anurag Irene on 11-25-2024 ALP [Catalytic activity/Vol] 168 U/L High 40-129 [facility] Serum or plasma calcium roosevelt urement (mass/volume)Ordered By: Anurag Irene on 11-25-2024 Calcium [Mass/Vol] 8.3 mg/dL 7.6-11.0 [facility] Serum or plasma urea nitroge n measurement (mass/volume)Ordered By: Anurag Irene on 11-25-2024 Urea nitrogen [Mass/Vol] 8 mg/dL 4-19 [facility] Sodium levelOrdered By: Marni Irene on 11-25-2024 Sodium [Moles/Vol] 135 mmol/L 133-145 [facility] Total proteinOrdered By: [place] Irene on 11-25-2024 Protein [Mass/Vol] 4.9 g/dL Low 5.9-8.4 [facility] White blood cell (WBC) count Ordered By: Anurag Irene on 11-25-2024 WBC (Bld) [#/Vol] 5.5 10*3/uL 4.4-11.0 [facility] Blood manual differential co mment interpretation (narrative result)Ordered By: Anurag Irene on 11-24-2024 Manual differential comment Marco Antonio (Bld) [Interp] SCANNED [facility] Platelet estimateOrdered By: Anurag Irene on 11-24-2024 Platelets LM Ql (Bld) MOD DEC ADEQ [facility] Prothrombin timeOrdered By: Anurag Irene on 11-24-2024 PT Coag (PPP) [Time] 22.6 s High 11.7-14.9 [facility] Bilirubin directOrdered By: Anurag Irene on 11-22-2024 Bilirubin.direct [Mass/Vol] 0.73 mg/dL High 0.00-0.30 [facility] ALP [Catalytic activity/Vol] Ordered By: Herberth Carlson on 11-21-2024 Serum or plasma alkaline phosphatase measurement 245 U/L High 40-129 [facility] ALT [Catalytic activity/Vol] Ordered By: Herberth Carlson on 11-21-2024 Serum or plasma alanine aminotransferase (ALT) measurement 61 U/L High <47 [facility] Absolute neutrophil countOrd ered By: Herberth Carlson on 11-21-2024 Absolute neutrophil count 6.5 X10^3/uL 2.0-7.7 [facility] Albumin [Mass/Vol]Ordered By : Herberth Carlson on 11-21-2024 Serum or plasma albumin measurement (mass/volume) 2.5 g/dL Low 3.5-5.0 [facility] Albumin/Globulin [Mass ratio ]Ordered By: Herberth Carlson on 11-21-2024 Serum or plasma albumin/globulin mass ratio 0.9 RATIO 0.9-2.4 [facility] Anion gap [Moles/Vol]Ordered By: Herberth Carlson on 11-21-2024 Anion gap in Serum or Plasma 11 5-15 [facility] BUN/creatinine ratioOrdered By: Herberth Carlson on 11-21-2024 BUN/creatinine ratio 19.1 RATIO 10-20 [facility] Bacteria LM.HPF (Urine sed) [#/Area]Ordered By: Herberth Carlson on 11-21-2024 Urine sediment bacteria count by microscopy (number/high power field) RARE /hpf None Seen [facility] Basophil percentageOrdered B y: Herberth Carlson on 11-21-2024 Basophil percentage 0.2 % 0-1 [facility] Bilirubin Test strip Ql (U)O rdered By: Herberth Carlson on 11-21-2024 Bilirubin Ql (U) Negative Negative [facility] Bilirubin, totalOrdered By: Herberth Carlson on 11-21-2024 Bilirubin, total 1.33 mg/dL High 0.00-1.30 [facility] Calcium [Mass/Vol]Ordered By : Herberth Carlson on 11-21-2024 Serum or plasma calcium measurement (mass/volume) 8.7 mg/dL 7.6-11.0 [facility] Carbon dioxide, total [Moles /volume] in Central venous bloodOrdered By: Herberth Carlson on 11-21-2024 Carbon dioxide, total [Moles/volume] in Central venous blood 17.5 mmol/L Low 21.0-32.0 [facility] Chloride assayOrdered By: Kaylyn Carlson on 11-21-2024 Chloride assay 103 mmol/L 98-108 [facility] Clarity (U)Ordered By: Ashish Carlson on 11-21-2024 Urine clarity Sl Cldy Clear [facility] Color (U)Ordered By: Herberth Carlson on 11-21-2024 Urine color determination Yellow Yellow [facility] Creatinine [Mass/Vol]Ordered By: Herberth Carlson on 11-21-2024 Serum creatinine measurement (mass/volume) 1.49 mg/dL High 0.70-1.20 [facility] Eosinophil percentageOrdered By: Herberth Carlson on 11-21-2024 Eosinophil percentage 7.2 % High 0-5 [facility] Erythrocyte distribution wid th (RBC) [Ratio]Ordered By: Herberth Carlson on 11-21-2024 Erythrocyte distribution width ratio 16.8 % High 11.6-14.6 [facility] Erythrocyte distribution width standard deviation 57.1 fl High 35.1-43.9 [facility] Estimation of creatinine [place] aranceOrdered By: Herberth Carlson on 11-21-2024 Estimation of creatinine clearance 64.65 ml/min 50-250 [facility] GFR/1.73 sq M.predicted niki g non-blacks MDRD (S/P/Bld) [Vol rate/Area]Ordered By: Herberth Carlson on 11-21-2024 Glomerular filtration rate (GFR) estimation/1.73 sq m using serum, plasma, or whole b 54 Low >60 [facility] Glucose [Mass/Vol]Ordered By : Herberth Carlson on 11-21-2024 Serum glucose measurement (mass/volume) 188 mg/dL High 70-99 [facility] Hematocrit Auto (Bld) [Volum e fraction]Ordered By: Herberth Carlson 11-21-2024 Automated blood hematocrit (percentage) 24.6 % Low 40-54 [facility] Hemoglobin measurementOrdere d By: Herberth Carlson on 11-21-2024 Hemoglobin measurement 8.3 g/dL Low 13.0-16.5 [facility] Immature granulocytes/100 WB C Auto (Bld)Ordered By: Herberth Carlson 11-21-2024 Automated immature granulocyte percentage 0.800 % 0.0-0.9 [facility] International normalized rat io (INR) calculationOrdered By: Herberth Carlson 11-21-2024 International normalized ratio (INR) calculation 2.6 [facility] Ketones Test strip Ql (U)Ord ered By: Herberth Carlson on 11-21-2024 Ketones Ql (U) Negative Negative [facility] Lactic acid measurementOrder ed By: Herberth Carlson on 11-21-2024 Lactic acid measurement 2.7 mmol/L High 0.0-2.0 [facility] Leukocyte esterase Test stri p Ql (U)Ordered By: Herberth Carlson on 11-21-2024 Urine leukocyte esterase detection by dipstick 500 /ul High Negative [facility] Lymphocytes Auto (Unsp spec) [#/Vol]Ordered By: Herberth Carlson on 11-21-2024 Absolute lymphocyte count 1.33 X10^3/uL 0.83-4.51 [facility] Lymphocytes/100 WBC Auto (Un sp spec)Ordered By: Herberth Carlson on 11-21-2024 Automated lymphocyte count as percentage of total leukocytes 13.9 % Low 19-41 [facility] MCV (RBC) [Entitic vol]Order ed By: Herberth Carlson on 11-21-2024 MCV (mean corpuscular volume) determination 93.2 fL 80-94 [facility] Mean corpuscular hemoglobin (MCH) determinationOrdered By: Herberth Carlson on 11-21-2024 Mean corpuscular hemoglobin (MCH) determination 31.4 pg 27.0-32.0 [facility] Mean corpuscular hemoglobin concentration (MCHC) determinationOrdered By: Herberth Carlson on 11-21-2024 Mean corpuscular hemoglobin concentration (MCHC) determination 33.7 g/dL 32-36 [facility] Mean platelet volume determi nationOrdered By: Herberth Carlson on 11-21-2024 Mean platelet volume determination 11.6 fl 6.2-12.0 [facility] Monocyte percentageOrdered B y: Herberth Carlson on 11-21-2024 Monocyte percentage 9.2 % 0-10 [facility] Mucus LM Ql (Urine sed)Order ed By: Herberth Carlson on 11-21-2024 Mucus Ql (Urine sed) 0 SEEN /hpf [facility] Neutrophil percentageOrdered By: Herberth Carlson on 11-21-2024 Neutrophil percentage 68.7 % 47-70 [facility] Nitrite Test strip Ql (U)Ord ered By: Herberth Carlson on 11-21-2024 Nitrite Ql (U) Negative Negative [facility] No Panel InformationOrdered By: Herberth Carlson on 11-21-2024 112 U/L High <38 [facility] Nucleated red blood cell per centageOrdered By: Herberth Carlson on 11-21-2024 Nucleated red blood cell percentage 0 % 0-5 [facility] Platelet countOrdered By: Kaylyn Carlson on 11-21-2024 Platelet count 167 K/mm3 150-450 [facility] Potassium (Unsp spec) [Mass/ Vol]Ordered By: Herberth Carlson on 11-21-2024 Potassium measurement (mass/volume) 5.0 mmol/L 3.3-5.1 [facility] Protein Test strip Ql (U)Ord ered By: Herberth Carlson on 11-21-2024 Protein Ql (U) 500 mg/dl High Negative [facility] Urine protein assay by test strip, semi-quantitative 500 mg/dl High Negative [facility] Prothrombin timeOrdered By: Herberth Carlson on 11-21-2024 Prothrombin time 28.2 SECONDS High 11.7-14.9 [facility] RBC Auto (Bld) [#/Vol]Ordere d By: Herberth Carlson on 11-21-2024 Automated blood erythrocyte count 2.64 M/mm3 Low 4.6-6.2 [facility] Serum globulin measurementOr dered By: Herberth Carlson on 11-21-2024 Serum globulin measurement 2.7 g/dL 2.2-4.2 [facility] Sodium levelOrdered By: Norman Carlson on 11-21-2024 Sodium level 132 mmol/L Low 133-145 [facility] Specific gravity (U) [Rel de nsity]Ordered By: Herberth Carlson on 11-21-2024 Urine specific gravity measurement 1.015 1.002-1.030 [facility] Squamous epithelial cells de tection in urine sediment by light microscopyOrdered By: Herberth Carlson on 11-21-2024 Epithelial cells.squamous LM Ql (Urine sed) 0 SEEN /hpf 0-5 [facility] Squamous epithelial cells detection in urine sediment by light microscopy 0 SEEN /hpf [facility] Total proteinOrdered By: Digna Carlson on 11-21-2024 Total protein 5.2 g/dL Low 5.9-8.4 [facility] Urea nitrogen [Mass/Vol]Orde red By: Herberth Carlson on 11-21-2024 Serum or plasma urea nitrogen measurement (mass/volume) 28 mg/dL High 4-19 [facility] Urine blood detectionOrdered By: Herberth Carlson on 11-21-2024 Urine blood detection 250 /ul High Negative [facility] Urine clarityOrdered By: Digna Carlson on 11-21-2024 Clarity (U) Sl Cldy Clear [facility] Urine color determinationOrd ered By: Herberth Carlson on 11-21-2024 Color (U) Yellow Yellow [facility] Urine cultureOrdered By: Digna Carlson on 11-21-2024 Bacteria identified 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) 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 [facility] Bacteria identified Cx Nom (U) GPC Poss Enterococcus sp Abnormal [facility] Bacteria identified Cx Nom (U) Positive Abnormal [facility] Urine glucose detectionOrder ed By: Herberth Carlson on 11-21-2024 Glucose Ql (U) Normal mg/dl Normal [facility] Urine glucose detection Normal mg/dl Normal [facility] Urine leukocyte esterase det ection by dipstickOrdered By: Herberth Carlson on 11-21-2024 Leukocyte esterase Test strip Ql (U) 500 /ul High Negative [facility] Urine pHOrdered By: Herberth Carlson on 11-21-2024 pH (U) 6.0 [pH] 5.0 - 8.0 [facility] Urine sediment bacteria coun t by microscopy (number/high power field)Ordered By: Herberth Carlson on 11-21-2024 Bacteria LM.HPF (Urine sed) [#/Area] RARE /hpf None Seen [facility] Urine specific gravity measu rementOrdered By: Herberth Carlson on 11-21-2024 Specific gravity (U) [Rel density] 1.015 1.002-1.030 [facility] Urine total bilirubin detect ion by test stripOrdered By: Herberth Carlson on 11-21-2024 Urine total bilirubin detection by test strip Negative Negative [facility] Urine urobilinogen measureme ntOrdered By: Herberth Carlson on 11-21-2024 Urobilinogen Ql (U) Normal mg/dl Normal [facility] Venous blood ammonia measure mentOrdered By: Herberth Carlson on 11-21-2024 Ammonia (P) [Moles/Vol] 17.9 umol/L [facility] Venous blood ammonia measurement 17.9 umol/L [facility] White blood cell (WBC) count Ordered By: Herberth Carlson on 11-21-2024 White blood cell (WBC) count 9.5 K/mm3 4.4-11.0 [facility] White blood cell countOrdere d By: Herberth Carlson on 11-21-2024 White blood cell count >100 SEEN /hpf 0-5 [facility] White blood cell count >100 SEEN /hpf 0-5 [facility] pH (U)Ordered By: Herberth henao on 11-21-2024 Urine pH 6.0 5.0 - 8.0 [facility] Bacteria Ur Culton Bacteria identified Cx Nom (U) CULTURE, URINE: Mixed microbiota, including predominantly: ORGANISM ID: 1 >=100,000 CFU/ml Mary glabrata No susceptibility testing done. Normal [facility] Comment on above: Performed By: #### 6 30-4 ####[facility] LABCLIA [id number] [place] [address] [place] Bacteria identified Cx Nom (U) Normal [facility] Comment on above: Performed By: #### 2 4356-8, 630-4 ####[facility] LABCLIA [id number] [place] [address] [place] Basic metabolic 2000 panelon 11-18-2024 Anion gap [Moles/Vol] 8 mmol/L Normal 8-15 [facility] Comment on above: Order Comment: Speci men Type: BLOOD SPECIMENOrdering Facility: [facility] Address: [address] [place] [address] Performed By: #### 2 4321-2, 93359-3, 2777-1 ####[facility] LABCLIA [id number] [place] [address] [place] Calcium [Mass/Vol] 8.3 mg/dL Low 8.5-10.2 [facility] Comment on above: Order Comment: Speci men Type: BLOOD SPECIMENOrdering Facility: [facility] Address: [address] [place] [address] Performed By: #### 2 4321-2, 02896-2, 2777-1 ####[facility] LABCLIA [id number] [facility] [place] [id number] [place] Chloride [Moles/Vol] 102 mmol/L Normal 98-[address] [facility] Comment on above: Order Comment: Speci men Type: BLOOD SPECIMENOrdering Facility: [facility] Address: [address] [place] [address] Performed By: #### 2 4321-2, 46215-1, 277-1 ####[facility] LABCLIA [id number] [place] [address] [place] CO2 [Moles/Vol] 19 mmol/L Low 22-30 [facility] Comment on above: Order Comment: Speci men Type: BLOOD SPECIMENOrdering Facility: [facility] Address: [address] [place] [address] Performed By: #### 2 4321-2, 30888-5, 2776- ####[facility] LABCLIA [id number] [place] [address] [place] Creatinine [Mass/Vol] 0.95 mg/dL Normal 0.73-1.22 [facility] Comment on above: Order Comment: Speci men Type: BLOOD SPECIMENOrdering Facility: [facility] Address: [address] [place] [address] Performed By: #### 2 4321-2, 73959-2, 277-1 ####[facility] LABCLIA [id number] [facility] [address] [address] [place] Creatinine and Glomerular filtration rate.predicted panel (S/P/Bld) 93 mL/min/1.73m??? Normal >=60 [facility] Comment on above: Order Comment: Ezekiel ramirez Type: BLOOD SPECIMENOrdering Facility: [facility] Address: [address] [place] [address] Result Comment: Patric mated Glomerular Filtration Rate [...] actual GFR. Performed By: #### 2 4321-2, 34435-3, 2777-1 ####[facility] [id number] [place] [address] [place] Glucose [Mass/Vol] 248 mg/dL High 74-99 [facility] Comment on above: Order Comment: Ezekiel ramirez Type: BLOOD SPECIMENOrdering Facility: [facility] Address: [address] [place] [address] Result Comment: The [place] [employer] (ADA) provides guidance for cutoff [...] Standards of Medical Care in Diabetes 2016, [employer]. Diabetes Care. 2016.39(Suppl 1). Performed By: #### 2 4321-2, 32593-5, 2777-1 ####[facility] LABIA [id number] [address] [address] [place] Potassium [Moles/Vol] 4.4 mmol/L Normal 3.7-5.1 [facility] Comment on above: Order Comment: Speci men Type: BLOOD SPECIMENOrdering Facility: [facility] Address: [address] [place], [place] [address] Performed By: #### 2 4321-2, 37356-3, 277- ####[facility] LABCLIA [id number] [address] [address] [place] Sodium [Moles/Vol] 129 mmol/L Low 136-144 [facility] Comment on above: Order Comment: Speci men Type: BLOOD SPECIMENOrdering Facility: [facility] Address: [address] [place] [address] Performed By: #### 2 4321-2, 72958-9, 27702-01 ####[facility] LABCLIA [id number] [address] [address] [place] Urea nitrogen [Mass/Vol] 16 mg/dL Normal 9-24 [facility] Comment on above: Order Comment: Speci men Type: BLOOD SPECIMENOrdering Facility: [facility] Address: [address] [place] [address] Performed By: #### 2 4321-2, 44674-7, 27702-01 ####[facility] LABCLIA [id number] [place] [address] [place] CASE MANAGEMon 11-18-[address] [facility] CBC W Auto Differential pane l (Bld)on 11-18-2024 Basophils (Bld) [#/Vol] 10*3/uL Normal <0.11 [facility] Comment on above: Order Comment: Speci men Type: BLOOD SPECIMENOrdering Facility: [facility] Address: [address] [place] [address] Performed By: #### 5 7021-8 ####[facility] LABCLIA [id number] [address] [address] [place] Basophils/100 WBC (Bld) 0.0 % [facility] Comment on above: Order Comment: Speci men Type: BLOOD SPECIMENOrdering Facility: [facility] Address: [address] [place] [address] Performed By: #### 5 7021-8 ####[facility] LABCLIA [id number] [place] [address] [place] Differential cell count method Nom (Bld) Auto Normal [facility] Comment on above: Order Comment: Speci men Type: BLOOD SPECIMENOrdering Facility: [facility] Address: [address] [place] [address] Performed By: #### 5 7021-8 ####[facility] LABCLIA [id number] [place] [address] [place] Eosinophils (Bld) [#/Vol] 10*3/uL Normal <0.46 [facility] Comment on above: Order Comment: Speci men Type: BLOOD SPECIMENOrdering Facility: [facility] Address: [address] [place] [address] Performed By: #### 5 7021-8 ####[facility] LABCLIA [id number] [place] [address] [place] Eosinophils/100 WBC (Bld) 0.1 % Normal [facility] Comment on above: Order Comment: Speci men Type: BLOOD SPECIMENOrdering Facility: [facility] Address: [address] [place] [address] Performed By: #### 5 7021-8 ####[facility] LABCLIA [id number] [place] [address] [place] Erythrocyte distribution width (RBC) [Ratio] 16.7 % High 11.5-15.0 [facility] Comment on above: Order Comment: Speci men Type: BLOOD SPECIMENOrdering Facility: [facility] Address: [address] [place] [address] Performed By: #### 5 7021-8 ####[facility] LABCLIA [id number] [place] [address] [place] Hematocrit (Bld) [Volume fraction] 21.5 % Low 39.0-51.0 [facility] Comment on above: Order Comment: Speci men Type: BLOOD SPECIMENOrdering Facility: [facility] Address: [address] [place] [address] Performed By: #### 5 7021-8 ####[facility] LABCLIA [id number] [place] [address] [place] Hemoglobin (Bld) [Mass/Vol] 7.2 g/dL Low 13.0-17.0 [facility] Comment on above: Order Comment: Speci men Type: BLOOD SPECIMENOrdering Facility: [facility] Address: [address] [place] [address] Performed By: #### 5 7021-8 ####[facility] LABCLIA [id number] [place] [address] [place] Immature granulocytes (Bld) [#/Vol] 0.06 10*3/uL Normal <0.10 [facility] Comment on above: Order Comment: Speci men Type: BLOOD SPECIMENOrdering Facility: [facility] Address: [address] [place] [address] Performed By: #### 5 7021-8 ####[facility] LABCLIA [id number] [place] [address] [place] Immature granulocytes/100 WBC (Bld) 0.7 % Normal [facility] Comment on above: Order Comment: Speci men Type: BLOOD SPECIMENOrdering Facility: [facility] Address: [address] [place] [address] Performed By: #### 5 7021-8 ####[facility] LABCLIA [id number] [place] [address] [place] Lymphocytes (Bld) [#/Vol] 0.61 10*3/uL Low 1.00-4.00 [facility] Comment on above: Order Comment: Speci men Type: BLOOD SPECIMENOrdering Facility: [facility] Address: [address] [place] [address] Performed By: #### 5 7021-8 ####[facility] LABIA [id number] [place] [address] [place] Lymphocytes/100 WBC (Bld) 7.3 % Normal [facility] Comment on above: Order Comment: Speci men Type: BLOOD SPECIMENOrdering Facility: [facility] Address: [address] [place] [address] Performed By: #### 5 7021-8 ####[facility] LABIA [id number] [place] [address] [place] MCH (RBC) [Entitic mass] 30.9 pg Normal 26.0-34.0 [facility] Comment on above: Order Comment: Speci men Type: BLOOD SPECIMENOrdering Facility: [facility] Address: [address] [place] [address] Performed By: #### 5 7021-8 ####[facility] LABIA [id number] [place] [address] [place] MCHC (RBC) [Mass/Vol] 33.5 g/dL Normal 30.5-36.0 [facility] Comment on above: Order Comment: Speci men Type: BLOOD SPECIMENOrdering Facility: [facility] Address: [address] [place] [address] Performed By: #### 5 7021-8 ####[facility] LABIA [id number] [place] [address] [place] MCV (RBC) [Entitic vol] 92.3 fL Normal 80.0-100.0 [facility] Comment on above: Order Comment: Speci men Type: BLOOD SPECIMENOrdering Facility: [facility] Address: [address] [place] [address] Performed By: #### 5 7021-8 ####[facility] LABCLIA [id number] [facility] [address] [place] [address] [place] Monocytes (Bld) [#/Vol] 0.72 10*3/uL Normal <0.87 [facility] Comment on above: Order Comment: Speci men Type: BLOOD SPECIMENOrdering Facility: [facility] Address: [address] [place] [address] Performed By: #### 5 7021-8 ####[facility] LABCLIA [id number] [facility] [address], [facility] [place] Monocytes/100 WBC (Bld) 8.7 % Normal [facility] Comment on above: Order Comment: Speci men Type: BLOOD SPECIMENOrdering Facility: [facility] Address: [address] [place] [address] Performed By: #### 5 7021-8 ####[facility] LABCLIA [id number] [place] [address] [place] Neutrophils (Bld) [#/Vol] 6.92 10*3/uL Normal 1.45-7.50 [facility] Comment on above: Order Comment: Speci men Type: BLOOD SPECIMENOrdering Facility: [facility] Address: [address] [place] [address] Performed By: #### 5 7021-8 ####[facility] LABCLIA [id number] [address], [facility] [place] Neutrophils/100 WBC (Bld) 83.2 % Normal [facility] Comment on above: Order Comment: Speci men Type: BLOOD SPECIMENOrdering Facility: [facility] Address: [address] [place] [address] Performed By: #### 5 7021-8 ####[facility] LABCLIA [id number] [address] [place] [address] [place] Nucleated RBC (Bld) [#/Vol] 10*3/uL Normal <0.01 [facility] Comment on above: Order Comment: Speci men Type: BLOOD SPECIMENOrdering Facility: [facility] Address: [address] [place] [address] Performed By: #### 5 7021-8 ####[facility] LABIA [id number] [place] [address] [place] Nucleated RBC/100 WBC (Bld) [Ratio] 0.0 /[address] [facility] Comment on above: Order Comment: Speci men Type: BLOOD SPECIMENOrdering Facility: [facility] Address: [address] [place] [address] Performed By: #### 5 7021-8 ####[facility] LABIA [id number] [place] [address] [place] Platelet mean volume (Bld) [Entitic vol] 12.1 fL Normal 9.0-12.7 [facility] Comment on above: Order Comment: Speci men Type: BLOOD SPECIMENOrdering Facility: [facility] Address: [address] [place] [address] Performed By: #### 5 7021-8 ####[facility] [id number] [place] [address] [place] Platelets (Bld) [#/Vol] 76 10*3/uL Low 150-400 [facility] Comment on above: Order Comment: Speci men Type: BLOOD SPECIMENOrdering Facility: [facility] Address: [address] [place] [address] Result Comment: No c lot detected. Performed By: #### 5 7021-8 ####[facility] LABIA [id number] [place] [address] [place] RBC (Bld) [#/Vol] 2.33 10*6/uL Low 4.20-6.00 [facility] Comment on above: Order Comment: Speci men Type: BLOOD SPECIMENOrdering Facility: [facility] Address: [address] [place] [address] Performed By: #### 5 7021-8 ####[facility] LABCLIA [id number] [place] [address] [place] WBC (Bld) [#/Vol] 8.32 10*3/uL Normal 3.70-11.00 [facility] Comment on above: Order Comment: Speci men Type: BLOOD SPECIMENOrdering Facility: [facility] Address: [address] [place] [address] Performed By: #### 5 7021-8 ####[facility] LABCLIA [id number] [place] [address] [place] CNCOon 11-18-[address] [facility] CNDSon 11-18-[address] [facility] CNPNon 11-18-[address] [facility] Fibrinogen PPP-mCncon 2024 Fibrinogen Coag (PPP) [Mass/Vol] 104 mg/dL Low 200-400 [facility] Comment on above: Order Comment: Speci men Type: BLOOD SPECIMENOrdering Facility: [facility] Address: [address] [place] [address] Performed By: #### 3 255-7, 34910-1 ####[facility] LABCLIA [id number] [place] [address] [place] Hepatic function 2000 panelo n 11-18-2024 Albumin [Mass/Vol] 2.6 g/dL Low 3.9-4.9 [facility] Comment on above: Order Comment: Speci men Type: BLOOD SPECIMENOrdering Facility: [facility] Address: [address] [place] [address] Performed By: #### 2 4321-2, 27491-1, 2777-1 ####[facility] LABCLIA [id number] [place] [address] [place] ALP [Catalytic activity/Vol] 245 U/L High 38-113 [facility] Comment on above: Order Comment: Speci men Type: BLOOD SPECIMENOrdering Facility: [facility] Address: [address] [place] [address] Performed By: #### 2 4321-2, 90969-0, 2776- ####[facility] LABCLIA [id number] [place] [address] [place] ALT [Catalytic activity/Vol] 31 U/L Normal 10-54 [facility] Comment on above: Order Comment: Speci men Type: BLOOD SPECIMENOrdering Facility: [facility] Address: [address] [place] [address] Performed By: #### 2 4321-2, 28464-7, 2776- ####[facility] LABCLIA [id number] [place] [address] [place] AST [Catalytic activity/Vol] 52 U/L High 14-40 [facility] Comment on above: Order Comment: Speci men Type: BLOOD SPECIMENOrdering Facility: [facility] Address: [address] [place] [address] Performed By: #### 2 4321-2, 02176-6, 2776-08 ####[facility] LABCLIA [id number] [place] [address] [place] Bilirubin [Mass/Vol] 1.2 mg/dL Normal 0.2-1.[address] [facility] Comment on above: Order Comment: Speci men Type: BLOOD SPECIMENOrdering Facility: [facility] Address: [address] [place] [address] Performed By: #### 2 4321-2, 27647-8, 2776- ####[facility] LABCLIA [id number] [facility] [place] [id number] [place] Bilirubin.conjugated [Mass/Vol] 0.7 mg/dL High <0.3 [facility] Comment on above: Order Comment: Speci men Type: BLOOD SPECIMENOrdering Facility: [facility] Address: [address] [place] [address] Performed By: #### 2 4321-2, 13344-5, 2777-1 ####[facility] LABCLIA [id number] [place] [address] [place] Protein [Mass/Vol] 5.0 g/dL Low 6.3-8.0 [facility] Comment on above: Order Comment: Ezekiel ramirez Type: BLOOD SPECIMENOrdering Facility: [facility] Address: [address] [place] [address] Performed By: #### 2 4321-2, 89133-2, 2777- ####[facility] LABCLIA [id number] [place] [address] [place] NURSING PROGon 11-18-[address] [facility] PT panel Coag (PPP)on 2024 INR Coag (PPP) [Relative time] 2.0 {INR} High 0.9-1.3 [facility] Comment on above: Order Comment: Ezekiel ramirez Type: BLOOD SPECIMENOrdering Facility: [facility] Address: [address] [place] [address] Result Comment: Sarah min K Antagonist (VKA) Therapeutic Range: INR 2 to 3 (Target INR of 2.5)Note: For patients treated with VKA drugs, such as warfarin, the [employer] 2012 Guideline recommends [...] al. Chest 2012, 141:7S-47SNishimura RA, et al. [facility] 2017, 70: 252-289 Performed By: #### 3 255-7, 92694-1 ####[facility] LABCLIA [id number] [place] [address] [place] PT Coag (PPP) [Time] 20.9 s High 9.7-13.[address] [facility] Comment on above: Order Comment: Speci men Type: BLOOD SPECIMENOrdering Facility: [facility] Address: [address] [place] [address] Performed By: #### 3 255-7, 97198-7 ####[facility] LABCLIA [id number] [place] [address] [place] Phosphate SerPl-mCncon 11-18 Phosphate [Mass/Vol] 2.4 mg/dL Low 2.7-4.[address] [facility] Comment on above: Order Comment: Speci men Type: BLOOD SPECIMENOrdering Facility: [facility] Address: [address] [place] [address] Performed By: #### 2 4321-2, 46799-6, 2777-1 ####[facility] LABIA [id number] [place] [address] [place] TYPE + SCREENon 11-18-[address] [facility] Comment on above: Order Comment: Speci men Type: BLOOD SPECIMENOrdering Facility: [facility] Address: [address] [place] [address] Performed By: #### T SCR ####[facility] BLOOD BANKCLIA [id number] [place] [address] [place] Rh Nom (Bld) Positive Normal [facility] Comment on above: Order Comment: Speci men Type: BLOOD SPECIMENOrdering Facility: [facility] Address: [address] [place] [address] Performed By: #### T SCR ####[facility] BLOOD BANKIA [id number] [place] [address] [place] TYPE AND SCREEN EXPIRATION 11/21/2024 23:[address] [facility] Comment on above: Order Comment: Speci men Type: BLOOD SPECIMENOrdering Facility: [facility] Address: [address] [place] [address] Performed By: #### T SCR ####[facility] BLOOD BANKCLIA [id number] [place] [address] [place] Urinalysis complete panel (U )on 11-18-2024 BACTERIA UL 1671.[address] [facility] Comment on above: Order Comment: Speci men Type: URINE SPECIMENOrdering Facility: [facility] Address: [address] [place] [address] Performed By: #### 2 4356-8, 630-4 ####[facility] LABCLIA [id number] [place] [address] [place] Bilirubin Ql (U) 2+ Abnormal Negative [facility] Comment on above: Order Comment: Speci men Type: URINE SPECIMENOrdering Facility: [facility] Address: [address] [place] [address] Result Comment: Sugg est correlation with clinical findings and serum bilirubin if clinically indicated. Performed By: #### 2 4356-8, 630-4 ####[facility] LABCLIA [id number] [place] [address] [place] CALCIUM OXALATE CRYSTALS (UA) Few Abnormal None Seen [facility] Comment on above: Order Comment: Speci men Type: URINE SPECIMENOrdering Facility: [facility] Address: [address] [place] [address] Performed By: #### 2 4356-8, 630-4 ####[facility] LABCLIA [id number] [place] [id number] [place] Clarity (Unsp spec) Turbid Abnormal Clear [facility] Comment on above: Order Comment: Speci men Type: URINE SPECIMENOrdering Facility: [facility] Address: [address] [place] [address] Performed By: #### 2 4356-8, 630-4 ####[facility] LABCLIA [id number] [place] [address] [place] Color (U) Red Abnormal Yellow [facility] Comment on above: Order Comment: Speci men Type: URINE SPECIMENOrdering Facility: [facility] Address: [address] [place] [address] Performed By: #### 2 4356-8, 630-4 ####[facility] LABCLIA [id number] [place] [address] [place] Epithelial cells LM.HPF (Urine sed) [#/Area] None Seen Normal [facility] Comment on above: Order Comment: Speci men Type: URINE SPECIMENOrdering Facility: [facility] Address: [address] [place] [address] Performed By: #### 2 4356-8, 630-4 ####[facility] LABCLIA [id number] [place] [address] [place] Glucose Test strip (U) [Mass/Vol] Negative Normal Negative [facility] Comment on above: Order Comment: Speci men Type: URINE SPECIMENOrdering Facility: [facility] Address: [address] [place] [address] Performed By: #### 2 4356-8, 630-4 ####[facility] LABCLIA [id number] [place] [id number] [place] Hemoglobin Ql (U) 2+ Abnormal Negative [facility] Comment on above: Order Comment: Speci men Type: URINE SPECIMENOrdering Facility: [facility] Address: [address] [place] [address] Performed By: #### 2 4356-8, 630-4 ####[facility] LABCLIA [id number] [address] [place] [address] [place] Hyaline casts (Urine sed) [#/Area] 0 /[LPF] Normal 0 /LPF [facility] Comment on above: Order Comment: Speci men Type: URINE SPECIMENOrdering Facility: [facility] Address: [address] [place] [address] Performed By: #### 2 4356-8, 630-4 ####[facility] LABCLIA [id number] [address], [place] [address] [place] Ketones Ql (U) Negative Normal Negative [facility] Comment on above: Order Comment: Speci men Type: URINE SPECIMENOrdering Facility: [facility] Address: [address] [place] [address] Performed By: #### 2 4356-8, 630-4 ####[facility] LABCLIA [id number] [address], [address] [place] Leukocyte esterase Test strip Ql (U) 3+ Abnormal Negative [facility] Comment on above: Order Comment: Speci men Type: URINE SPECIMENOrdering Facility: [facility] Address: [address] [place] [address] Performed By: #### 2 4356-8, 630-4 ####[facility] LABCLIA [id number] [address], [place] [address] [place] Nitrite Ql (U) Negative Normal Negative [facility] Comment on above: Order Comment: Speci men Type: URINE SPECIMENOrdering Facility: [facility] Address: [address] [place] [address] Result Comment: Resu lt rechecked. Performed By: #### 2 4356-8, 630-4 ####[facility] LABCLIA [id number] [address], [facility] [place] pH (U) 5.0 [pH] Normal <8.5 [facility] Comment on above: Order Comment: Speci men Type: URINE SPECIMENOrdering Facility: [facility] Address: [address] [place] [address] Performed By: #### 2 4356-8, 630-4 ####[facility] LABIA [id number] [place] [address] [place] Protein (U) [Mass/Vol] 2+ Abnormal Negative Cl [facility] Comment on above: Order Comment: Speci men Type: URINE SPECIMENOrdering Facility: [facility] Address: [address] [place] [address] Performed By: #### 2 4356-8, 630-4 ####[facility] LABIA [id number] [place] [address] [place] RBC LM.HPF (Urine sed) [#/Area] /[HPF] Abnormal 0-2 /HPF [facility] Comment on above: Order Comment: Speci men Type: URINE SPECIMENOrdering Facility: [facility] Address: [address] [place] [address] Performed By: #### 2 4356-8, 630-4 ####[facility] [id number] [place] [address] [place] Specific gravity (U) [Rel density] 1.021 Normal 1.005-1.030 [facility] Comment on above: Order Comment: Speci men Type: URINE SPECIMENOrdering Facility: [facility] Address: [address] [place] [address] Performed By: #### 2 4356-8, 630-4 ####[facility] [id number] [place] [address] [place] Urobilinogen Ql (U) 0.2 EU/dL Normal 0.2-1.0 EU/dL [facility] Comment on above: Order Comment: Speci men Type: URINE SPECIMENOrdering Facility: [facility] Address: [address] [place] [address] Performed By: #### 2 4356-8, 630-4 ####[facility] LABCLIA [id number] [place] [id number] [place] WBC LM.HPF (Urine sed) [#/Area] /[HPF] Abnormal 0-5 /HPF [facility] Comment on above: Order Comment: Speci men Type: URINE SPECIMENOrdering Facility: [facility] Address: [address] [place] [address] Performed By: #### 2 4356-8, 630-4 ####[facility] LABCLIA [id number] [place] [address] [place] Yeast.budding LM.HPF (Urine sed) [#/Area] Present Abnormal None Seen [facility] Comment on above: Order Comment: Speci men Type: URINE SPECIMENOrdering Facility: [facility] Address: [address] [place] [address] Performed By: #### 2 4356-8, 630-4 ####[facility] LABIA [id number] [place] [address] [place] Basic metabolic 2000 panelon 11-17-2024 Anion gap [Moles/Vol] 10 mmol/L Normal 8-15 [facility] Comment on above: Order Comment: Speci men Type: BLOOD SPECIMENOrdering Facility: [facility] Address: [address] [place] [address] Performed By: #### 2 4321-2, 62661-6, 2777-1 ####[facility] LABCLIA [id number] [place] [address] [place] Calcium [Mass/Vol] 8.9 mg/dL Normal 8.5-10.2 [facility] Comment on above: Order Comment: Speci men Type: BLOOD SPECIMENOrdering Facility: [facility] Address: [address] [place] [address] Performed By: #### 2 4321-2, 12330-2, 2777-1 ####[facility] LABIA [id number] [address] [address] [place] Chloride [Moles/Vol] 105 mmol/L Normal 98-[address] [facility] Comment on above: Order Comment: Speci men Type: BLOOD SPECIMENOrdering Facility: [facility] Address: [address] [place] [address] Performed By: #### 2 4321-2, 51594-1, 2777-1 ####[facility] [id number] [place] [address] [place] CO2 [Moles/Vol] 17 mmol/L Low 22-30 [facility] Comment on above: Order Comment: Speci men Type: BLOOD SPECIMENOrdering Facility: [facility] Address: [address] [place] [address] Performed By: #### 2 4321-2, 96330-0, 2777-1 ####[facility] [id number] [place] [address] [place] Creatinine [Mass/Vol] 0.77 mg/dL Normal 0.73-1.22 [facility] Comment on above: Order Comment: Speci men Type: BLOOD SPECIMENOrdering Facility: [facility] Address: [address] [place] [address] Performed By: #### 2 4321-2, 28249-9, 2777-1 ####[facility] [id number] [place] [id number] [place] Creatinine and Glomerular filtration rate.predicted panel (S/P/Bld) 104 mL/min/1.73m??? Normal >=60 [facility] Comment on above: Order Comment: Speci men Type: BLOOD SPECIMENOrdering Facility: [facility] Address: [address] [place] [address] Result Comment: Patric mated Glomerular Filtration Rate [...] actual GFR. Performed By: #### 2 4321-2, 39136-6, 2776-08 ####[facility] LABCLIA [id number] [address] [address] [place] Glucose [Mass/Vol] 291 mg/dL High 74-99 [facility] Comment on above: Order Comment: Ezekiel ramirez Type: BLOOD SPECIMENOrdering Facility: [facility] Address: [address] [place] [address] Result Comment: The [place] Diabetes Association (ADA) provides guidance for cutoff [...] Standards of Medical Care in Diabetes 2016, [place] [employer]. Diabetes Care. 2016.39(Suppl 1). Performed By: #### 2 4321-2, 34324-6, 2776-08 ####[facility] LABCLIA [id number] [address] [address] [place] Potassium [Moles/Vol] 4.5 mmol/L Normal 3.7-5.1 [facility] Comment on above: Order Comment: Ezekiel ramirez Type: BLOOD SPECIMENOrdering Facility: [facility] Address: [address] [place] [id number] Performed By: #### 2 4321-2, 80098-8, 2776-08 ####[facility] LABCLIA [id number] [address] [address] [place] Sodium [Moles/Vol] 132 mmol/L Low 136-144 [facility] Comment on above: Order Comment: Speci men Type: BLOOD SPECIMENOrdering Facility: [facility] Address: [address] [place] [address] Performed By: #### 2 4321-2, 64952-8, 2777-1 ####[facility] LABCLIA [id number] [place] [address] [place] Urea nitrogen [Mass/Vol] 9 mg/dL Normal 9-24 [facility] Comment on above: Order Comment: Speci men Type: BLOOD SPECIMENOrdering Facility: [facility] Address: [address] [place] [address] Performed By: #### 2 4321-2, 39282-0, 2777-1 ####[facility] LABCLIA [id number] [place] [address] [place] CASE MANAGEMon 11-17-[address] [facility] CBC W Auto Differential pane l (Bld)on 11-17-2024 Basophils (Bld) [#/Vol] 10*3/uL Normal <0.11 [facility] Comment on above: Order Comment: Speci men Type: BLOOD SPECIMENOrdering Facility: [facility] Address: [address] [place] [address] Performed By: #### 5 7021-8 ####[facility] LABCLIA [id number] [place] [address] [place] Basophils/100 WBC (Bld) 0.0 % Normal C [facility] Comment on above: Order Comment: Speci men Type: BLOOD SPECIMENOrdering Facility: [facility] Address: [address] [place] [address] Performed By: #### 5 7021-8 ####[facility] LABCLIA [id number] [place] [address] [place] Differential cell count method Nom (Bld) Auto Normal [facility] Comment on above: Order Comment: Speci men Type: BLOOD SPECIMENOrdering Facility: [facility] Address: [address] [place] [address] Performed By: #### 5 7021-8 ####[facility] LABCLIA [id number] [place] [address] [place] Eosinophils (Bld) [#/Vol] 10*3/uL Normal <0.46 [facility] Comment on above: Order Comment: Speci men Type: BLOOD SPECIMENOrdering Facility: [facility] Address: [address] [place] [address] Performed By: #### 5 7021-8 ####[facility] LABCLIA [id number] [place] [address] [place] Eosinophils/100 WBC (Bld) 0.0 % Normal [facility] Comment on above: Order Comment: Speci men Type: BLOOD SPECIMENOrdering Facility: [facility] Address: [address] [place] [address] Performed By: #### 5 7021-8 ####[facility] LABIA [id number] [place] [address] [place] Erythrocyte distribution width (RBC) [Ratio] 16.9 % High 11.5-15.0 [facility] Comment on above: Order Comment: Speci men Type: BLOOD SPECIMENOrdering Facility: [facility] Address: [address] [place] [address] Performed By: #### 5 7021-8 ####[facility] LABCLIA [id number] [place] [address] [place] Hematocrit (Bld) [Volume fraction] 22.7 % Low 39.0-51.0 [facility] Comment on above: Order Comment: Speci men Type: BLOOD SPECIMENOrdering Facility: [facility] Address: [address] [place] [address] Performed By: #### 5 7021-8 ####[facility] LABCLIA [id number] [place] [address] [place] Hemoglobin (Bld) [Mass/Vol] 7.7 g/dL Low 13.0-17.0 [facility] Comment on above: Order Comment: Speci men Type: BLOOD SPECIMENOrdering Facility: [facility] Address: [address] [place] [address] Performed By: #### 5 7021-8 ####[facility] LABCLIA [id number] [place] [address] [place] Immature granulocytes (Bld) [#/Vol] 0.03 10*3/uL Normal <0.10 [facility] Comment on above: Order Comment: Speci men Type: BLOOD SPECIMENOrdering Facility: [facility] Address: [address] [place] [address] Performed By: #### 5 7021-8 ####[facility] LABIA [id number] [place] [address] [place] Immature granulocytes/100 WBC (Bld) 0.9 % Normal [facility] Comment on above: Order Comment: Speci men Type: BLOOD SPECIMENOrdering Facility: [facility] Address: [address] [place] [address] Performed By: #### 5 7021-8 ####[facility] LABCLIA [id number] [place] [address] [place] Lymphocytes (Bld) [#/Vol] 0.28 10*3/uL Low 1.00-4.00 [facility] Comment on above: Order Comment: Speci men Type: BLOOD SPECIMENOrdering Facility: [facility] Address: [address] [place] [address] Performed By: #### 5 7021-8 ####[facility] LABIA [id number] [place] [address] [place] Lymphocytes/100 WBC (Bld) 8.3 % Normal [facility] Comment on above: Order Comment: Speci men Type: BLOOD SPECIMENOrdering Facility: [facility] Address: [address] [place] [address] Performed By: #### 5 7021-8 ####[facility] LABIA [id number] [place] [address] [place] MCH (RBC) [Entitic mass] 31.7 pg Normal 26.0-34.0 [facility] Comment on above: Order Comment: Speci men Type: BLOOD SPECIMENOrdering Facility: [facility] Address: [address] [place] [address] Performed By: #### 5 7021-8 ####[facility] LABIA [id number] [place] [address] [place] MCHC (RBC) [Mass/Vol] 33.9 g/dL Normal 30.5-36.0 [facility] Comment on above: Order Comment: Speci men Type: BLOOD SPECIMENOrdering Facility: [facility] Address: [address] [place] [address] Performed By: #### 5 7021-8 ####[facility] LABIA [id number] [place] [address] [place] MCV (RBC) [Entitic vol] 93.4 fL Normal 80.0-100.0 [facility] Comment on above: Order Comment: Speci men Type: BLOOD SPECIMENOrdering Facility: [facility] Address: [address] [place] [address] Performed By: #### 5 7021-8 ####[facility] LABIA [id number] [place] [address] [place] Monocytes (Bld) [#/Vol] 0.17 10*3/uL Normal <0.87 [facility] Comment on above: Order Comment: Speci men Type: BLOOD SPECIMENOrdering Facility: [facility] Address: [address] [place] [address] Performed By: #### 5 7021-8 ####[facility] LABCLIA [id number] [place] [address] [place] Monocytes/100 WBC (Bld) 5.0 % Normal [facility] Comment on above: Order Comment: Speci men Type: BLOOD SPECIMENOrdering Facility: [facility] Address: [address] [place] [address] Performed By: #### 5 7021-8 ####[facility] LABCLIA [id number] [place] [address] [place] Neutrophils (Bld) [#/Vol] 2.89 10*3/uL Normal 1.45-7.50 [facility] Comment on above: Order Comment: Speci men Type: BLOOD SPECIMENOrdering Facility: [facility] Address: [address] [place] [address] Performed By: #### 5 7021-8 ####[facility] LABCLIA [id number] [place] [address] [place] Neutrophils/100 WBC (Bld) 85.8 % Normal [facility] Comment on above: Order Comment: Speci men Type: BLOOD SPECIMENOrdering Facility: [facility] Address: [address] [place] [address] Performed By: #### 5 7021-8 ####[facility] LABCLIA [id number] [place] [id number] [place] Nucleated RBC (Bld) [#/Vol] 10*3/uL Normal <0.01 [facility] Comment on above: Order Comment: Speci men Type: BLOOD SPECIMENOrdering Facility: [facility] Address: [address] [place] [address] Performed By: #### 5 7021-8 ####[facility] LABCLIA [id number] [address] [address] [place] Nucleated RBC/100 WBC (Bld) [Ratio] 0.0 /[address] [facility] Comment on above: Order Comment: Speci men Type: BLOOD SPECIMENOrdering Facility: [facility] Address: [address] [place] [address] Performed By: #### 5 7021-8 ####[facility] LABCLIA [id number] [place] [address] [place] Platelet mean volume (Bld) [Entitic vol] 12.0 fL Normal 9.0-12.7 [facility] Comment on above: Order Comment: Speci men Type: BLOOD SPECIMENOrdering Facility: [facility] Address: [address] [place] [address] Performed By: #### 5 7021-8 ####[facility] LABCLIA [id number] [place] [address] [place] Platelets (Bld) [#/Vol] 57 10*3/uL Low 150-400 [facility] Comment on above: Order Comment: Speci men Type: BLOOD SPECIMENOrdering Facility: [facility] Address: [address] [place] [address] Performed By: #### 5 7021-8 ####[facility] LABIA [id number] [place] [address] [place] RBC (Bld) [#/Vol] 2.43 10*6/uL Low 4.20-6.00 [facility] Comment on above: Order Comment: Speci men Type: BLOOD SPECIMENOrdering Facility: [facility] Address: [address] [place] [address] Performed By: #### 5 7021-8 ####[facility] LABCLIA [id number] [place] [address] [place] WBC (Bld) [#/Vol] 3.37 10*3/uL Low 3.70-11.00 [facility] Comment on above: Order Comment: Speci men Type: BLOOD SPECIMENOrdering Facility: [facility] Address: [address] [place] [address] Performed By: #### 5 7021-8 ####[facility] [id number] [place] [address] [place] CONSULT PROGon 11-17-[address] [facility] Fact Xa PPP-aCncon Coagulation factor X activated act Coag Qn (PPP) <0.10 Normal <0.10 [facility] Comment on above: Order Comment: Speci men Type: BLOOD SPECIMENOrdering Facility: [facility] Address: [address] [place] [address] Result Comment: The recommended therapeutic range for treatment of venous and arterial thrombosis with intravenous unfractionated heparin is an anti Xa activity level of 0.3 to 0.7 IU/mL. In patients with concomitant therapy with thrombolytic agents and/or platelet glycoprotein IIb/IIIa antagonists, the recommended therapeutic range is an anti Xa activity level of 0.2 to 0.5 IU/mL. Performed By: #### 3 217-7 ####[facility] [id number] [place] [address] [place] Fibrinogen PPP-mCncon 2024 Fibrinogen Coag (PPP) [Mass/Vol] 114 mg/dL Low 200-400 [facility] Comment on above: Order Comment: Speci men Type: BLOOD SPECIMENOrdering Facility: [facility] Address: [address] [place] [address] Performed By: #### 3 255-7, 74078-6 ####[facility] [id number] [place] [address] [place] Hepatic function 2000 panelo n 11-17-2024 Albumin [Mass/Vol] 2.7 g/dL Low 3.9-4.9 [facility] Comment on above: Order Comment: Speci men Type: BLOOD SPECIMENOrdering Facility: [facility] Address: [address] [place] [address] Performed By: #### 2 4321-2, 73570-5, 277-1 ####[facility] LABCLIA [id number] [address] [address] [place] ALP [Catalytic activity/Vol] 276 U/L High 38-113 [facility] Comment on above: Order Comment: Speci men Type: BLOOD SPECIMENOrdering Facility: [facility] Address: [address] [place] [address] Performed By: #### 2 4321-2, 10764-3, 277- ####[facility] LABCLIA [id number] [place] [id number] [place] ALT [Catalytic activity/Vol] 35 U/L Normal 10-54 [facility] Comment on above: Order Comment: Speci men Type: BLOOD SPECIMENOrdering Facility: [facility] Address: [address] [place] [address] Performed By: #### 2 4321-2, 71661-3, 2776- ####[facility] LABIA [id number] [address] [place] AST [Catalytic activity/Vol] 80 U/L High 14-40 [facility] Comment on above: Order Comment: Speci men Type: BLOOD SPECIMENOrdering Facility: [facility] Address: [address] [place], [place] [address] Performed By: #### 2 4321-2, 40308-7, 2776- ####[facility] LABIA [id number] [address] [address] [place] Bilirubin [Mass/Vol] 1.8 mg/dL High 0.2-1.[address] [facility] Comment on above: Order Comment: Speci men Type: BLOOD SPECIMENOrdering Facility: [facility] Address: [address] [place], [place] [address] Performed By: #### 2 4321-2, 35376-3, 2777-1 ####[facility] LABIA [id number] [address] [address] [place] Bilirubin.conjugated [Mass/Vol] 1.0 mg/dL High <0.3 [facility] Comment on above: Order Comment: Speci men Type: BLOOD SPECIMENOrdering Facility: [facility] Address: [address] [place] [address] Performed By: #### 2 4321-2, 59365-6, 27702-01 ####[facility] LABIA [id number] [place] [id number] [place] Protein [Mass/Vol] 5.2 g/dL Low 6.3-8.0 [facility] Comment on above: Order Comment: Speci men Type: BLOOD SPECIMENOrdering Facility: [facility] Address: [address] [place] [address] Performed By: #### 2 4321-2, 91278-7, 27702-01 ####[facility] [id number] [place] [id number] [place] NUTRITIONon 11-17-[address] [facility] PSA/PROSTATE SPECIFIC ANTIGE N SCREENINGon 11-17-2024 Prostate specific Ag [Mass/Vol] 0.52 ng/mL Normal <2.60 [facility] Comment on above: Order Comment: Speci men Type: BLOOD SPECIMENOrdering Facility: [facility] Address: [address] [place] [address] Result Comment: Tota l PSA test methodology used is the Electrochemiluminescence Immunoassay by [employer]. Total PSA values by differing methodologies cannot be interchanged. Performed By: #### P SAS1 ####[facility] LABIA [id number] [place] [id number] [place] PT panel Coag (PPP)on 2024 INR Coag (PPP) [Relative time] 2.0 {INR} High 0.9-1.3 [facility] Comment on above: Order Comment: Ezekiel ramirez Type: BLOOD SPECIMENOrdering Facility: [facility] Address: [address] [place] [address] Result Comment: Sarah min K Antagonist (VKA) Therapeutic Range: INR 2 to 3 (Target INR of 2.5)Note: For patients treated with VKA drugs, such as warfarin, the [employer] 2012 Guideline recommends [...] al. Chest 2012, 141:7S-47SNishbethel RA, et al. [facility] 2017, 70: 252-289 Performed By: #### 3 255-7, 10708-7 ####[facility] LABIA [id number] [place] [address] [place] PT Coag (PPP) [Time] 20.6 s High 9.7-13.[address] [facility] Comment on above: Order Comment: Ezekiel ramirez Type: BLOOD SPECIMENOrdering Facility: [facility] Address: [address] [place] [address] Performed By: #### 3 255-7, 41513-1 ####[facility] [id number] [place] [id number] [place] PTT, ANTICOAGULANT THERAPYon 11-17-2024 aPTT Coag (PPP) [Time] 41.6 s High 23.0-32.4 [facility] Comment on above: Order Comment: Ezekiel ramirez Type: BLOOD SPECIMENOrdering Facility: [facility] Address: [address] [place] [address] Performed By: #### P TTAC ####[facility] LABIA [id number] [place] [id number] [place] Phosphate SerPl-ncon 11-17 Phosphate [Mass/Vol] 1.9 mg/dL Low 2.7-4.8 [facility] Comment on above: Order Comment: Speci men Type: BLOOD SPECIMENOrdering Facility: [facility] Address: [address] [place] [address] Performed By: #### 2 4321-2, 92940-7, 2777-1 ####[facility] [id number] [place] [address] [place] THERAPY NTon 11-17-[address] [facility] aPTT PPPon 11-17-2024 aPTT Coag (PPP) [Time] s High 23.0-32.4 [facility] Comment on above: Order Comment: Speci men Type: BLOOD SPECIMENOrdering Facility: [facility] Address: [address] [place] [address] Result Comment: Resu lt rechecked.Sample checked for clot. Performed By: #### 1 4979-9, PTTAC ####[facility] [id number] [place] [address] [place] ANES POSTPROC EVALon 025 ANES POSTPROC EVAL Normal [facility] ANES PRE-OPon 11-16-2024 ANES PRE-OP Normal [facility] Albumin Fld-ncon Albumin (Body fld) [Mass/Vol] 0.2 g/dL Normal See Comment [facility] Comment on above: Order Comment: Speci men Type: FLUID SPECIMENOrdering Facility: [facility] Address: [address] [place] [address] Result Comment: Body Fluid Albumin may be [...] document C49A. PAULETTE Diaz: Clinical Laboratory Standards [place]: 2007.2. Amy JACKSON. Serum to ascites albumin [...] Performed By: #### 1 795-4, 2881-1, 1747-5 ####[facility] LABIA [id number] [place] [address] [place] Fluid Nom (Body fld) Ascites Fluid Normal C [facility] Comment on above: Order Comment: Speci men Type: FLUID SPECIMENOrdering Facility: [facility] Address: [address] [place] [address] Performed By: #### 1 795-4, 2881-1, 1747-5 ####[facility] LABIA [id number] [address] [address] [place] Amylase Fld-cCncon 5 Amylase (Body fld) [Catalytic activity/Vol] 17 U/L Normal See Comment [facility] Comment on above: Order Comment: Speci men Type: FLUID SPECIMENOrdering Facility: [facility] Address: [address] [place] [address] Result Comment: PLEU RAL FLUIDS:Amylase measurement in [...] document C49-A. PAULETTE Diaz: Clinical Laboratory Standards [place]; 2007.3. Kelby CONCEPCION, John BRAR, Star DJ. Use of cyst fluid CEA, CA19-9, and amylase for evaluation of pancreatic lesions. Clinical Biochemistry. 2009;42:8293-8074.This test was developed, and its performance characteristics [...] Performed By: #### 1 795-4, 2881-1, 1747-5 ####[facility] LABCLIA [id number] [place] [address] [place] BODY FLUID CELL COUNTon 11-02 Clarity (Unsp spec) Clear Normal Clear [facility] Comment on above: Order Comment: Speci men Type: FLUID SPECIMENOrdering Facility: [facility] Address: [address] [place] [address] Performed By: #### C CBF, [id number] ####[facility] LABCLIA [id number] [address] [place] [address] [place] Color (Body fld) Yellow Normal Yellow [facility] Comment on above: Order Comment: Speci men Type: FLUID SPECIMENOrdering Facility: [facility] Address: [address] [place] [address] Performed By: #### C CBF, [id number] ####[facility] LABCLIA [id number] [place] [address] [place] RBC Manual cnt (Body fld) [#/Vol] 3000 /uL High <2000 [facility] Comment on above: Order Comment: Speci men Type: FLUID SPECIMENOrdering Facility: [facility] Address: [address] [place] [address] Performed By: #### C CBF, [id number] ####[facility] LABCLIA [id number] [address] [place] Specimen source Nom (Body fld) Ascites Fluid Normal [facility] Comment on above: Order Comment: Speci men Type: FLUID SPECIMENOrdering Facility: [facility] Address: [address] [place] [address] Performed By: #### C CBF, [id number] ####[facility] LABCLIA [id number] [place] [address] [place] WBC Manual cnt (Body fld) [#/Vol] 58 /uL Normal <1000 [facility] Comment on above: Order Comment: Speci men Type: FLUID SPECIMENOrdering Facility: [facility] Address: [address] [place] [address] Performed By: #### C CBF, [id number] ####[facility] LABCLIA [id number] [place] [address] [place] Bacteria Fld Culton 11-17-19 25 Bacteria identified Cx Nom (Body fld) CULTURE, BODY FLD: No growth GRAM STAIN: No organisms seen Few Polymorphonuclear leukocytes Gram stain performed on cytospun specimen. Gram stain from primary specimen Normal [facility] Comment on above: Performed By: #### 6 35-3, 611-4 ####[facility] LABCLIA [id number] [address] [place] [address] [place] Bacteria Spec Anaerobe Culto n 11-16-2024 Bacteria identified Anaer cx Nom (Unsp spec) Negative Normal [facility] Comment on above: Performed By: #### 6 35-3, 611-4 ####[facility] LABCLIA [id number] [address] [place] [address] [place] Basic metabolic 2000 panelon 11-16-2024 Anion gap [Moles/Vol] 10 mmol/L Normal 8-15 [facility] Comment on above: Order Comment: Speci men Type: BLOOD SPECIMENOrdering Facility: [facility] Address: [address] [place] [address] Performed By: #### 2 4321-2, 36478-8, 277- ####[facility] LABCLIA [id number] [address] [address] [place] Calcium [Mass/Vol] 8.4 mg/dL Low 8.5-10.2 [facility] Comment on above: Order Comment: Speci men Type: BLOOD SPECIMENOrdering Facility: [facility] Address: [address] [place], [place] [address] Performed By: #### 2 4321-2, 35106-1, 277- ####[facility] LABCLIA [id number] [address] [address] [place] Chloride [Moles/Vol] 102 mmol/L Normal 98-[address] [facility] Comment on above: Order Comment: Speci men Type: BLOOD SPECIMENOrdering Facility: [facility] Address: [address] [place], [place] [address] Performed By: #### 2 4321-2, 73775-5, 2777-1 ####[facility] LABCLIA [id number] [place] [id number] [place] CO2 [Moles/Vol] 18 mmol/L Low 22-30 [facility] Comment on above: Order Comment: Speci men Type: BLOOD SPECIMENOrdering Facility: [facility] Address: [address] [place] [address] Performed By: #### 2 4321-2, 22999-7, 2776- ####[facility] [id number] [place] [id number] [place] Creatinine [Mass/Vol] 0.73 mg/dL Normal 0.73-1.22 [facility] Comment on above: Order Comment: Speci men Type: BLOOD SPECIMENOrdering Facility: [facility] Address: [address] [place] [address] Performed By: #### 2 4321-2, 19345-0, 2776-08 ####[facility] [id number] [place] [address] [place] Creatinine and Glomerular filtration rate.predicted panel (S/P/Bld) 105 mL/min/1.73m??? Normal >=60 [facility] Comment on above: Order Comment: Speci men Type: BLOOD SPECIMENOrdering Facility: [facility] Address: [address] [place] [address] Result Comment: Patric mated Glomerular Filtration Rate [...] actual GFR. Performed By: #### 2 4321-2, 44958-3, 2776- ####[facility] LABIA [id number] [address] [address] [place] Glucose [Mass/Vol] 181 mg/dL High 74-99 [facility] Comment on above: Order Comment: Speci men Type: BLOOD SPECIMENOrdering Facility: [facility] Address: [address] [place] [address] Result Comment: The [place] Diabetes [employer] (ADA) provides guidance for cutoff [...] Standards of Medical Care in Diabetes 2016, [place] Diabetes Association. Diabetes Care. 2016.39(Suppl 1). Performed By: #### 2 4321-2, 21986-6, 2777-1 ####[facility] LABCLIA [id number] [place] [address] [place] Potassium [Moles/Vol] 3.6 mmol/L Low 3.7-5.1 [facility] Comment on above: Order Comment: Speci men Type: BLOOD SPECIMENOrdering Facility: [facility] Address: [address] [place] [address] Performed By: #### 2 4321-2, 89467-5, 2777- ####[facility] LABCLIA [id number] [place] [address] [place] Sodium [Moles/Vol] 130 mmol/L Low 136-144 [facility] Comment on above: Order Comment: Speci men Type: BLOOD SPECIMENOrdering Facility: [facility] Address: [address] [place] [address] Performed By: #### 2 4321-2, 38263-1, 2777-1 ####[facility] LABCLIA [id number] [place] [address] [place] Urea nitrogen [Mass/Vol] 9 mg/dL Normal 9-24 [facility] Comment on above: Order Comment: Speci men Type: BLOOD SPECIMENOrdering Facility: [facility] Address: [address] [place] [address] Performed By: #### 2 4321-2, 20341-2, 2777-1 ####[facility] LABCLIA [id number] [place] [address] [place] CBC W Auto Differential pane l (Bld)on 11-16-2024 Basophils (Bld) [#/Vol] 0.05 10*3/uL Normal <0.11 [facility] Comment on above: Order Comment: Speci men Type: BLOOD SPECIMENOrdering Facility: [facility] Address: [address] [place] [address] Performed By: #### 5 7021-8 ####[facility] LABCLIA [id number] [place] [address] [place] Basophils/100 WBC (Bld) 0.8 % Normal C [facility] Comment on above: Order Comment: Speci men Type: BLOOD SPECIMENOrdering Facility: [facility] Address: [address] [place] [address] Performed By: #### 5 7021-8 ####[facility] LABCLIA [id number] [place] [address] [place] Differential cell count method Nom (Bld) Auto Normal [facility] Comment on above: Order Comment: Speci men Type: BLOOD SPECIMENOrdering Facility: [facility] Address: [address] [place] [address] Performed By: #### 5 7021-8 ####[facility] LABCLIA [id number] [place] [address] [place] Eosinophils (Bld) [#/Vol] 0.22 10*3/uL Normal <0.46 [facility] Comment on above: Order Comment: Speci men Type: BLOOD SPECIMENOrdering Facility: [facility] Address: [address] [place] [address] Performed By: #### 5 7021-8 ####[facility] LABCLIA [id number] [place] [address] [place] Eosinophils/100 WBC (Bld) 3.6 % Normal [facility] Comment on above: Order Comment: Speci men Type: BLOOD SPECIMENOrdering Facility: [facility] Address: [address] [place] [address] Performed By: #### 5 7021-8 ####[facility] LABCLIA [id number] [place] [address] [place] Erythrocyte distribution width (RBC) [Ratio] 16.7 % High 11.5-15.0 [facility] Comment on above: Order Comment: Speci men Type: BLOOD SPECIMENOrdering Facility: [facility] Address: [address] [place] [address] Performed By: #### 5 7021-8 ####[facility] LABIA [id number] [place] [address] [place] Hematocrit (Bld) [Volume fraction] 24.0 % Low 39.0-51.0 [facility] Comment on above: Order Comment: Speci men Type: BLOOD SPECIMENOrdering Facility: [facility] Address: [address] [place] [address] Performed By: #### 5 7021-8 ####[facility] LABCLIA [id number] [place] [address] [place] Hemoglobin (Bld) [Mass/Vol] 8.3 g/dL Low 13.0-17.0 [facility] Comment on above: Order Comment: Speci men Type: BLOOD SPECIMENOrdering Facility: [facility] Address: [address] [place] [address] Performed By: #### 5 7021-8 ####[facility] LABCLIA [id number] [place] [address] [place] Immature granulocytes (Bld) [#/Vol] 0.05 10*3/uL Normal <0.10 [facility] Comment on above: Order Comment: Speci men Type: BLOOD SPECIMENOrdering Facility: [facility] Address: [address] [place] [address] Performed By: #### 5 7021-8 ####[facility] LABCLIA [id number] [place] [address] [place] Immature granulocytes/100 WBC (Bld) 0.8 % Normal [facility] Comment on above: Order Comment: Speci men Type: BLOOD SPECIMENOrdering Facility: [facility] Address: [address] [place] [address] Performed By: #### 5 7021-8 ####[facility] LABCLIA [id number] [place] [address] [place] Lymphocytes (Bld) [#/Vol] 0.75 10*3/uL Low 1.00-4.00 [facility] Comment on above: Order Comment: Speci men Type: BLOOD SPECIMENOrdering Facility: [facility] Address: [address] [place] [address] Performed By: #### 5 7021-8 ####[facility] LABCLIA [id number] [place] [address] [place] Lymphocytes/100 WBC (Bld) 12.4 % Normal [facility] Comment on above: Order Comment: Speci men Type: BLOOD SPECIMENOrdering Facility: [facility] Address: [address] [place] [address] Performed By: #### 5 7021-8 ####[facility] LABCLIA [id number] [place] [address] [place] MCH (RBC) [Entitic mass] 31.9 pg Normal 26.0-34.0 [facility] Comment on above: Order Comment: Speci men Type: BLOOD SPECIMENOrdering Facility: [facility] Address: [address] [place] [address] Performed By: #### 5 7021-8 ####[facility] LABCLIA [id number] [place] [address] [place] MCHC (RBC) [Mass/Vol] 34.6 g/dL Normal 30.5-36.0 [facility] Comment on above: Order Comment: Speci men Type: BLOOD SPECIMENOrdering Facility: [facility] Address: [address] [place] [address] Performed By: #### 5 7021-8 ####[facility] LABCLIA [id number] [place] [address] [place] MCV (RBC) [Entitic vol] 92.3 fL Normal 80.0-100.0 C [facility] Comment on above: Order Comment: Speci men Type: BLOOD SPECIMENOrdering Facility: [facility] Address: [address] [place] [address] Performed By: #### 5 7021-8 ####[facility] LABCLIA [id number] [place] [address] [place] Monocytes (Bld) [#/Vol] 0.68 10*3/uL Normal <0.87 [facility] Comment on above: Order Comment: Speci men Type: BLOOD SPECIMENOrdering Facility: [facility] Address: [address] [place] [address] Performed By: #### 5 7021-8 ####[facility] LABCLIA [id number] [place] [address] [place] Monocytes/100 WBC (Bld) 11.3 % Normal C [facility] Comment on above: Order Comment: Speci men Type: BLOOD SPECIMENOrdering Facility: [facility] Address: [address] [place] [address] Performed By: #### 5 7021-8 ####[facility] LABCLIA [id number] [address] [address] [place] Neutrophils (Bld) [#/Vol] 4.28 10*3/uL Normal 1.45-7.50 [facility] Comment on above: Order Comment: Speci men Type: BLOOD SPECIMENOrdering Facility: [facility] Address: [address] [place] [address] Performed By: #### 5 7021-8 ####[facility] LABCLIA [id number] [place] [address] [place] Neutrophils/100 WBC (Bld) 71.1 % Normal [facility] Comment on above: Order Comment: Speci men Type: BLOOD SPECIMENOrdering Facility: [facility] Address: [address] [place] [address] Performed By: #### 5 7021-8 ####[facility] LABCLIA [id number] [place] [address] [place] Nucleated RBC (Bld) [#/Vol] 10*3/uL Normal <0.01 [facility] Comment on above: Order Comment: Speci men Type: BLOOD SPECIMENOrdering Facility: [facility] Address: [address] [place] [address] Performed By: #### 5 7021-8 ####[facility] LABCLIA [id number] [place] [address] [place] Nucleated RBC/100 WBC (Bld) [Ratio] 0.0 /[address] [facility] Comment on above: Order Comment: Speci men Type: BLOOD SPECIMENOrdering Facility: [facility] Address: [address] [place] [address] Performed By: #### 5 7021-8 ####[facility] LABCLIA [id number] [place] [id number] [place] Platelet mean volume (Bld) [Entitic vol] 11.8 fL Normal 9.0-12.7 [facility] Comment on above: Order Comment: Speci men Type: BLOOD SPECIMENOrdering Facility: [facility] Address: [address] [place] [address] Performed By: #### 5 7021-8 ####[facility] LABCLIA [id number] [place] [address] [place] Platelets (Bld) [#/Vol] 59 10*3/uL Low 150-400 C [facility] Comment on above: Order Comment: Speci men Type: BLOOD SPECIMENOrdering Facility: [facility] Address: [address] [place] [address] Result Comment: No c lot detected.Results checked and verified. Performed By: #### 5 7021-8 ####[facility] LABCLIA [id number] [place] [address] [place] RBC (Bld) [#/Vol] 2.60 10*6/uL Low 4.20-6.00 [facility] Comment on above: Order Comment: Speci men Type: BLOOD SPECIMENOrdering Facility: [facility] Address: [address] [place] [address] Performed By: #### 5 7021-8 ####[facility] LABIA [id number] [place] [address] [place] WBC (Bld) [#/Vol] 6.03 10*3/uL Normal 3.70-11.00 [facility] Comment on above: Order Comment: Speci men Type: BLOOD SPECIMENOrdering Facility: [facility] Address: [address] [place] [address] Performed By: #### 5 7021-8 ####[facility] LABIA [id number] [place] [address] [place] CONSULT PROGon 11-16-[address] [facility] CYTOLOGY NON-GYNon [address] [facility] Comment on above: Order Comment: Speci men Type: FLUID SPECIMENOrdering Facility: [facility] Address: [address] [place] [address] Result Comment: Shellie Fox Test (LDT) Disclaimer:Performance characteristics of immunohistochemical, immunofluorescent, and chromogenic in-situ hybridization tests have been determined by the performing laboratory within [facility]'s [facility] Pathology and Laboratory Medicine Department ([facility], [facility], [facility], [facility], [facility], [facility], or [facility]) in a manner consistent with [...] stain appropriately. Performed By: #### C YTONON ####[facility] LABCLIA [id number] [place] [address] [place] [place] CASE REPORT Normal [facility] Comment on above: Order Comment: Speci men Type: FLUID SPECIMENOrdering Facility: [facility] Address: [address] [place] [address] Result Comment: [facility] Cytology Report Case: [id number] Provider: Young Cruz MD Collected: 11/16/2024 08:42 AMOrdering Location: [place] [address] Received: 11/16/2024 06:20 PMPathologist: Stefani cMneal MDSpecimen: Peritoneal Fluid. Performed By: #### C YTONON ####[facility] LABCLIA [id number] [place] [address] [place] CLINICAL HISTORY Cirrhosis with ascites Normal [facility] Comment on above: Order Comment: Ezekiel ramirez Type: FLUID SPECIMENOrdering Facility: [facility] Address: [address] [place] [address] Performed By: #### C YTONON ####[facility] LABCLIA [id number] [place] [address] [place] FINAL DIAGNOSIS Normal [facility] Comment on above: Order Comment: Speci men Type: FLUID SPECIMENOrdering Facility: [facility] Address: [address] [place] [address] Result Comment: A - Peritoneal Fluid Negative for malignant cells. Chronic inflammation.The following cell blocks were associated with this case:A1 Cell Block, Alcohol Fixed at 1223 EDT Performed By: #### C YTONON ####[facility] LABCLIA [id number] [address] [place] FINAL PERFORMING LAB Normal [facility] Comment on above: Order Comment: Speci men Type: FLUID SPECIMENOrdering Facility: [facility] Address: [address] [place] [address] Result Comment: Tech nical component, recreation facility attendant screening performed at: [facility], [address] [place] [address] CLIA: [id number] interpretation performed at: [facility], [address] [place] [address] CLIA# [id number] Director: Titi Voss MD Performed By: #### C YTONON ####[facility] LABCLIA [id number] [place] [address] [place] GROSS DESCRIPTION Normal [facility] Comment on above: Order Comment: Speci men Type: FLUID SPECIMENOrdering Facility: [facility] Address: [address] [place] [address] Result Comment: A. P eritoneal Fluid.1450 cc opaque red fluid . ThinPrep and Cell Block prepared. Performed By: #### C YTONON ####[facility] LABCLIA [id number] [place] [address] [place] ECG COMPLETEon 11-16-[address] [facility] Fibrinogen PPP-mCncon 2024 Fibrinogen Coag (PPP) [Mass/Vol] 127 mg/dL Low 200-400 [facility] Comment on above: Order Comment: Speci men Type: BLOOD SPECIMENOrdering Facility: [facility] Address: [address] [place] [address] Performed By: #### 3 255-7, 10840-0 ####[facility] LABCLIA [id number] [place] [address] [place] Hepatic function 2000 panelo n 11-16-2024 Albumin [Mass/Vol] 2.8 g/dL Low 3.9-4.9 [facility] Comment on above: Order Comment: Speci men Type: BLOOD SPECIMENOrdering Facility: [facility] Address: [address] [place] [address] Performed By: #### 2 4321-2, 00463-3, 2777-1 ####[facility] LABCLIA [id number] [place] [address] [place] ALP [Catalytic activity/Vol] 295 U/L High 38-113 [facility] Comment on above: Order Comment: Speci men Type: BLOOD SPECIMENOrdering Facility: [facility] Address: [address] [place] [address] Performed By: #### 2 4321-2, 92453-0, 2777-1 ####[facility] LABCLIA [id number] [place] [address] [place] ALT [Catalytic activity/Vol] 38 U/L Normal 10-54 [facility] Comment on above: Order Comment: Speci men Type: BLOOD SPECIMENOrdering Facility: [facility] Address: [address] [place] [address] Performed By: #### 2 4321-2, 29307-8, 2777-1 ####[facility] LABCLIA [id number] [place] [id number] [place] AST [Catalytic activity/Vol] 88 U/L High 14-40 [facility] Comment on above: Order Comment: Speci men Type: BLOOD SPECIMENOrdering Facility: [facility] Address: [address] [place] [address] Performed By: #### 2 4321-2, 28735-5, 2776-08 ####[facility] LABCLIA [id number] [place] [id number] [place] Bilirubin [Mass/Vol] 1.8 mg/dL High 0.2-1.[address] [facility] Comment on above: Order Comment: Speci men Type: BLOOD SPECIMENOrdering Facility: [facility] Address: [address] [place] [address] Performed By: #### 2 4321-2, 66825-6, 2776-08 ####[facility] LABCLIA [id number] [place] [address] [place] Bilirubin.conjugated [Mass/Vol] 0.9 mg/dL High <0.3 [facility] Comment on above: Order Comment: Speci men Type: BLOOD SPECIMENOrdering Facility: [facility] Address: [address] [place] [address] Performed By: #### 2 4321-2, 74555-5, 2776-08 ####[facility] LABIA [id number] [place] [id number] [place] Protein [Mass/Vol] 5.5 g/dL Low 6.3-8.0 [facility] Comment on above: Order Comment: Speci men Type: BLOOD SPECIMENOrdering Facility: [facility] Address: [address] [place] [address] Performed By: #### 2 4321-2, 80045-6, 2776-08 ####[facility] LABCLIA [id number] [address] [address] [place] MANUAL DIFFERENTIAL, BODY FL UIDon 11-16-2024 DIF TTL, BODY FLUID [address] [facility] Comment on above: Order Comment: Speci men Type: FLUID SPECIMENOrdering Facility: [facility] Address: [address] [place] [address] Performed By: #### C CBF, [id number] ####[facility] LABCLIA [id number] [address], [place] [address] [place] LYMPH%, BF 47 % High 18-36 [facility] Comment on above: Order Comment: Speci men Type: FLUID SPECIMENOrdering Facility: [facility] Address: [address] [place] [address] Performed By: #### C CBF, [id number] ####[facility] LABCLIA [id number] [address], [place] [address] [place] MACRO%, BF 6 % Low 64-80 [facility] Comment on above: Order Comment: Speci men Type: FLUID SPECIMENOrdering Facility: [facility] Address: [address] [place] [address] Performed By: #### C CBF, [id number] ####[facility] LABCLIA [id number] [address], [place] [address] [place] MESO %, BF 25 % High 0-2 [facility] Comment on above: Order Comment: Speci men Type: FLUID SPECIMENOrdering Facility: [facility] Address: [address] [place] [address] Performed By: #### C CBF, [id number] ####[facility] LABCLIA [id number] [address], [facility] [place] MONO% BF 8 % Normal [facility] Comment on above: Order Comment: Speci men Type: FLUID SPECIMENOrdering Facility: [facility] Address: [address] [place] [address] Performed By: #### C CBF, [id number] ####[facility] LABCLIA [id number] [address], [facility] [place] NEUT%, BF 14 % High 0-1 [facility] Comment on above: Order Comment: Speci men Type: FLUID SPECIMENOrdering Facility: [facility] Address: [address] [place] [address] Performed By: #### C CBF, [id number] ####[facility] LABCLIA [id number] [place] [address] [place] NURSING PROGon 11-16-[address] [facility] NURSING PROG Normal [facility] PT panel Coag (PPP)on 2024 INR Coag (PPP) [Relative time] 2.1 {INR} High 0.9-1.3 [facility] Comment on above: Order Comment: Ezekiel ramirez Type: BLOOD SPECIMENOrdering Facility: [facility] Address: [address] [place] [address] Result Comment: Sarah min K Antagonist (VKA) Therapeutic Range: INR 2 to 3 (Target INR of 2.5)Note: For patients treated with VKA drugs, such as warfarin, the [employer] 2012 Guideline recommends [...] 3 4528-0 ####[facility] LABCLIA [id number] [place] [id number] [place] PT Coag (PPP) [Time] 21.5 s High 9.7-13.[address] [facility] Comment on above: Order Comment: Speci men Type: BLOOD SPECIMENOrdering Facility: [facility] Address: [address] [place] [address] Performed By: #### 3 4528-0 ####[facility] LABCLIA [id number] [place] [address] [place] INR Coag (PPP) [Relative time] 2.0 {INR} High 0.9-1.3 [facility] Comment on above: Order Comment: Speci men Type: BLOOD SPECIMENOrdering Facility: [facility] Address: [address] [place] [address] Result Comment: Sarah min K Antagonist (VKA) Therapeutic Range: INR 2 to 3 (Target INR of 2.5)Note: For patients treated with VKA drugs, such as warfarin, the [employer] 2012 Guideline recommends [...] al. Chest 2012, 141:7S-47SNishimura RA, et al. [facility] 2017, 70: 252-289 Performed By: #### 3 255-7, 79581-2 ####[facility] LABCLIA [id number] [place] [id number] [place] PT Coag (PPP) [Time] 20.3 s High 9.7-13.[address] [facility] Comment on above: Order Comment: Speci men Type: BLOOD SPECIMENOrdering Facility: [facility] Address: [address] [place] [address] Performed By: #### 3 255-7, 14267-1 ####[facility] LABCLIA [id number] [place] [id number] [place] Phosphate SerPl-mCncon 11-16 Phosphate [Mass/Vol] 2.3 mg/dL Low 2.7-4.8 [facility] Comment on above: Order Comment: Speci men Type: BLOOD SPECIMENOrdering Facility: [facility] Address: [address] [place] [address] Performed By: #### 2 4321-2, 33834-1, 2777-1 ####[facility] [id number] [place] [address] [place] Prot Fld-[facility] 11-16-2024 Protein (Body fld) [Mass/Vol] 0.5 g/dL Normal See Comment [facility] Comment on above: Order Comment: Speci men Type: FLUID SPECIMENOrdering Facility: [facility] Address: [address] [place] [address] Result Comment: Sero us fluids: Effusions are [...] document C49A. PAULETTE Diaz: Clinical Laboratory Standards [place]: 2007. Performed By: #### 1 795-4, 2881-1, 1747-5 ####[facility] LABIA [id number] [place] [id number] [place] THERAPY NTon 11-16-[address] [facility] THERAPY NT Normal [facility] BLOOD TB SCREENon 11-15-2024 M. tuberculosis tuberculin stim IFN-g Ql (Bld) Indeterminate Normal [facility] Comment on above: Order Comment: Speci men Type: BLOOD SPECIMENOrdering Facility: [facility] Address: [address] [place] [address] Performed By: #### I NFTBP ####[facility] LABCLIA [id number] [place] [address] [place] MITOGEN MINUS NIL 0.25 IU/mL Low >=0.50 [facility] Comment on above: Order Comment: Speci men Type: BLOOD SPECIMENOrdering Facility: [facility] Address: [address] [place] [address] Performed By: #### I NFTBP ####[facility] LABCLIA [id number] [place] [address] [place] TB GAMMA INTERPRETATION Normal [facility] Comment on above: Order Comment: Speci men Type: BLOOD SPECIMENOrdering Facility: [facility] Address: [address] [place] [address] Performed By: #### I NFTBP ####[facility] LABCLIA [id number] [address] OF [place] TB NIL 0.01 IU/mL Normal <=8.00 [facility] Comment on above: Order Comment: Speci men Type: BLOOD SPECIMENOrdering Facility: [facility] Address: [address] [place] [address] Performed By: #### I NFTBP ####[facility] LABCLIA [id number] [place] [address] [place] TB1 AG MINUS NIL 0.00 IU/mL Normal <0.35 [facility] Comment on above: Order Comment: Speci men Type: BLOOD SPECIMENOrdering Facility: [facility] Address: [address] [place] [address] Performed By: #### I NFTBP ####[facility] LABCLIA [id number] [place] [address] [place] TB2 AG MINUS NIL 0.01 IU/mL Normal <0.35 [facility] Comment on above: Order Comment: Speci men Type: BLOOD SPECIMENOrdering Facility: [facility] Address: [address] [place] [address] Performed By: #### I NFTBP ####[facility] LABCLIA [id number] [place] [address] [place] CASE MANAGEMon 11-15-[address] [facility] CASE MANAGEM Normal [facility] CBC W Auto Differential pane l (Bld)on 11-15-2024 Basophils (Bld) [#/Vol] 0.05 10*3/uL Normal <0.11 [facility] Comment on above: Order Comment: Speci men Type: BLOOD SPECIMENOrdering Facility: [facility] Address: [address] [place] [address] Performed By: #### 5 7021-8 ####[facility] LABIA [id number] [place] [address] [place] Basophils/100 WBC (Bld) 0.8 % Normal [facility] Comment on above: Order Comment: Speci men Type: BLOOD SPECIMENOrdering Facility: [facility] Address: [address] [place] [address] Performed By: #### 5 7021-8 ####[facility] LABCLIA [id number] [place] [address] [place] Differential cell count method Nom (Bld) Auto Normal [facility] Comment on above: Order Comment: Speci men Type: BLOOD SPECIMENOrdering Facility: [facility] Address: [address] [place] [address] Performed By: #### 5 7021-8 ####[facility] LABIA [id number] [place] [address] [place] Eosinophils (Bld) [#/Vol] 0.28 10*3/uL Normal <0.46 [facility] Comment on above: Order Comment: Speci men Type: BLOOD SPECIMENOrdering Facility: [facility] Address: [address] [place] [address] Performed By: #### 5 7021-8 ####[facility] LABCLIA [id number] [place] [address] [place] Eosinophils/100 WBC (Bld) 4.6 % Normal [facility] Comment on above: Order Comment: Speci men Type: BLOOD SPECIMENOrdering Facility: [facility] Address: [address] [place] [address] Performed By: #### 5 7021-8 ####[facility] LABCLIA [id number] [address] [place] Erythrocyte distribution width (RBC) [Ratio] 16.8 % High 11.5-15.0 [facility] Comment on above: Order Comment: Speci men Type: BLOOD SPECIMENOrdering Facility: [facility] Address: [address] [place] [address] Performed By: #### 5 7021-8 ####[facility] LABCLIA [id number] [address] [place] Hematocrit (Bld) [Volume fraction] 22.9 % Low 39.0-51.0 [facility] Comment on above: Order Comment: Speci men Type: BLOOD SPECIMENOrdering Facility: [facility] Address: [address] [place] [address] Performed By: #### 5 7021-8 ####[facility] LABCLIA [id number] [address] [place] Hemoglobin (Bld) [Mass/Vol] 7.6 g/dL Low 13.0-17.0 [facility] Comment on above: Order Comment: Speci men Type: BLOOD SPECIMENOrdering Facility: [facility] Address: [address] [place] [address] Performed By: #### 5 7021-8 ####[facility] LABCLIA [id number] [address], [place] [address] [place] Immature granulocytes (Bld) [#/Vol] 0.03 10*3/uL Normal <0.10 [facility] Comment on above: Order Comment: Speci men Type: BLOOD SPECIMENOrdering Facility: [facility] Address: [address] [place] [address] Performed By: #### 5 7021-8 ####[facility] LABCLIA [id number] [place] [address] [place] Immature granulocytes/100 WBC (Bld) 0.5 % Normal [facility] Comment on above: Order Comment: Speci men Type: BLOOD SPECIMENOrdering Facility: [facility] Address: [address] [place] [address] Performed By: #### 5 7021-8 ####[facility] LABCLIA [id number] [address], [place] [address] [place] Lymphocytes (Bld) [#/Vol] 0.70 10*3/uL Low 1.00-4.00 [facility] Comment on above: Order Comment: Speci men Type: BLOOD SPECIMENOrdering Facility: [facility] Address: [address] [place] [address] Performed By: #### 5 7021-8 ####[facility] LABCLIA [id number] [place] [id number] [place] Lymphocytes/100 WBC (Bld) 11.5 % Normal [facility] Comment on above: Order Comment: Speci men Type: BLOOD SPECIMENOrdering Facility: [facility] Address: [address] [place] [address] Performed By: #### 5 7021-8 ####[facility] LABCLIA [id number] [place] [address] [place] MCH (RBC) [Entitic mass] 30.6 pg Normal 26.0-34.0 [facility] Comment on above: Order Comment: Speci men Type: BLOOD SPECIMENOrdering Facility: [facility] Address: [address] [place] [address] Performed By: #### 5 7021-8 ####[facility] LABCLIA [id number] [place] [address] [place] MCHC (RBC) [Mass/Vol] 33.2 g/dL Normal 30.5-36.0 [facility] Comment on above: Order Comment: Speci men Type: BLOOD SPECIMENOrdering Facility: [facility] Address: [address] [place] [address] Performed By: #### 5 7021-8 ####[facility] LABCLIA [id number] [place] [address] [place] MCV (RBC) [Entitic vol] 92.3 fL Normal 80.0-100.0 [facility] Comment on above: Order Comment: Speci men Type: BLOOD SPECIMENOrdering Facility: [facility] Address: [address] [place] [address] Performed By: #### 5 7021-8 ####[facility] LABIA [id number] [place] [address] [place] Monocytes (Bld) [#/Vol] 0.73 10*3/uL Normal <0.87 [facility] Comment on above: Order Comment: Speci men Type: BLOOD SPECIMENOrdering Facility: [facility] Address: [address] [place] [address] Performed By: #### 5 7021-8 ####[facility] LABCLIA [id number] [address] [place] Monocytes/100 WBC (Bld) 12.0 % Normal C [facility] Comment on above: Order Comment: Speci men Type: BLOOD SPECIMENOrdering Facility: [facility] Address: [address] [place] [address] Performed By: #### 5 7021-8 ####[facility] LABCLIA [id number] [place] [address] [place] Neutrophils (Bld) [#/Vol] 4.30 10*3/uL Normal 1.45-7.50 [facility] Comment on above: Order Comment: Speci men Type: BLOOD SPECIMENOrdering Facility: [facility] Address: [address] [place] [address] Performed By: #### 5 7021-8 ####[facility] LABCLIA [id number] [place] [address] [place] Neutrophils/100 WBC (Bld) 70.6 % Normal [facility] Comment on above: Order Comment: Speci men Type: BLOOD SPECIMENOrdering Facility: [facility] Address: [address] [place] [address] Performed By: #### 5 7021-8 ####[facility] LABCLIA [id number] [place] [address] [place] Nucleated RBC (Bld) [#/Vol] 10*3/uL Normal <0.01 [facility] Comment on above: Order Comment: Speci men Type: BLOOD SPECIMENOrdering Facility: [facility] Address: [address] [place] [address] Performed By: #### 5 7021-8 ####[facility] LABCLIA [id number] [place] [id number] [place] Nucleated RBC/100 WBC (Bld) [Ratio] 0.0 /[address] [facility] Comment on above: Order Comment: Speci men Type: BLOOD SPECIMENOrdering Facility: [facility] Address: [address] [place] [address] Performed By: #### 5 7021-8 ####[facility] LABCLIA [id number] [address] [address] [place] Platelet mean volume (Bld) [Entitic vol] 12.2 fL Normal 9.0-12.7 [facility] Comment on above: Order Comment: Speci men Type: BLOOD SPECIMENOrdering Facility: [facility] Address: [address] [place] [address] Performed By: #### 5 7021-8 ####[facility] LABCLIA [id number] [place] [address] [place] Platelets (Bld) [#/Vol] 53 10*3/uL Low 150-400 C [facility] Comment on above: Order Comment: Speci men Type: BLOOD SPECIMENOrdering Facility: [facility] Address: [address] [place] [address] Performed By: #### 5 7021-8 ####[facility] LABCLIA [id number] [place] [address] [place] RBC (Bld) [#/Vol] 2.48 10*6/uL Low 4.20-6.00 [facility] Comment on above: Order Comment: Speci men Type: BLOOD SPECIMENOrdering Facility: [facility] Address: [address] [place] [address] Performed By: #### 5 7021-8 ####[facility] LABCLIA [id number] [place] [address] [place] WBC (Bld) [#/Vol] 6.09 10*3/uL Normal 3.70-11.00 [facility] Comment on above: Order Comment: Speci men Type: BLOOD SPECIMENOrdering Facility: [facility] Address: [address] [place] [address] Performed By: #### 5 7021-8 ####[facility] LABCLIA [id number] [place] [id number] [place] CNOVon 11-15-[address] [facility] CONSULTon 11-15-[address] [facility] CONSULT PROGon 11-15-[address] [facility] Fibrinogen PPP-mCncon 2024 Fibrinogen Coag (PPP) [Mass/Vol] 123 mg/dL Low 200-400 [facility] Comment on above: Order Comment: Speci men Type: BLOOD SPECIMENOrdering Facility: [facility] Address: [address] [place] [address] Performed By: #### 3 255-7, 46266-3 ####[facility] LABCLIA [id number] [place] [address] [place] Hepatic function 2000 panelo n 11-15-2024 Albumin [Mass/Vol] 2.8 g/dL Low 3.9-4.9 [facility] Comment on above: Order Comment: Speci men Type: BLOOD SPECIMENOrdering Facility: [facility] Address: [address] [place] [address] Performed By: #### 2 4325-3, 89450-0 ####[facility] LABCLIA [id number] [place] [address] [place] ALP [Catalytic activity/Vol] 277 U/L High 38-113 [facility] Comment on above: Order Comment: Speci men Type: BLOOD SPECIMENOrdering Facility: [facility] Address: [address] [place] [address] Performed By: #### 2 4325-3, 78436-8 ####[facility] LABCLIA [id number] [place] [id number] [place] ALT [Catalytic activity/Vol] 36 U/L Normal 10-54 [facility] Comment on above: Order Comment: Speci men Type: BLOOD SPECIMENOrdering Facility: [facility] Address: [address] [place] [address] Performed By: #### 2 4325-3, 30169-0 ####[facility] LABCLIA [id number] [address] [place] [address] [place] AST [Catalytic activity/Vol] 87 U/L High 14-40 [facility] Comment on above: Order Comment: Speci men Type: BLOOD SPECIMENOrdering Facility: [facility] Address: [address] [place] [address] Performed By: #### 2 4325-3, 36946-7 ####[facility] LABCLIA [id number] [address], [facility] [place] Bilirubin [Mass/Vol] 1.6 mg/dL High 0.2-1.[address] [facility] Comment on above: Order Comment: Speci men Type: BLOOD SPECIMENOrdering Facility: [facility] Address: [address] [place] [address] Performed By: #### 2 4325-3, 53661-0 ####[facility] LABIA [id number] [address], [place] [address] [place] Bilirubin.conjugated [Mass/Vol] 0.9 mg/dL High <0.3 [facility] Comment on above: Order Comment: Speci men Type: BLOOD SPECIMENOrdering Facility: [facility] Address: [address] [place] [address] Performed By: #### 2 4325-3, 42703-2 ####[facility] LABIA [id number] [place] [address] [place] Protein [Mass/Vol] 5.4 g/dL Low 6.3-8.0 [facility] Comment on above: Order Comment: Speci men Type: BLOOD SPECIMENOrdering Facility: [facility] Address: [address] [place] [address] Performed By: #### 2 4325-3, 70588-3 ####[facility] LABCLIA [id number] [address] [place] [address] [place] PT panel Coag (PPP)on 2024 INR Coag (PPP) [Relative time] 1.8 {INR} High 0.9-1.3 [facility] Comment on above: Order Comment: Ezekiel ramirez Type: BLOOD SPECIMENOrdering Facility: [facility] Address: [address] [place] [address] Result Comment: Sarah min K Antagonist (VKA) Therapeutic Range: INR 2 to 3 (Target INR of 2.5)Note: For patients treated with VKA drugs, such as warfarin, the [employer] 2012 Guideline recommends [...] al. Chest 2012, 141:7S-47SNishimnicolle RA, et al. [facility] 2017, 70: 252-289 Performed By: #### 3 255-7, 36130-4 ####[facility] [id number] [place] [address] [place] PT Coag (PPP) [Time] 18.9 s High 9.7-13.[address] [facility] Comment on above: Order Comment: Ezekiel ramirez Type: BLOOD SPECIMENOrdering Facility: [facility] Address: [address] [place] [address] Performed By: #### 3 255-7, 28983-8 ####[facility] [id number] [place] [address] [place] Renal function 2000 panelon 11-15-2024 Albumin [Mass/Vol] 2.9 g/dL Low 3.9-4.9 [facility] Comment on above: Order Comment: Speci men Type: BLOOD SPECIMENOrdering Facility: [facility] Address: [address] [place] [id number] Performed By: #### 2 4325-3, 05007-8 ####[facility] LABCLIA [id number] [address] [address] [place] Anion gap [Moles/Vol] 15 mmol/L Normal 8-15 [facility] Comment on above: Order Comment: Speci men Type: BLOOD SPECIMENOrdering Facility: [facility] Address: [address] [place], [place] [address] Performed By: #### 2 4325-3, 77587-7 ####[facility] LABCLIA [id number] [place] [address] [place] Calcium [Mass/Vol] 8.4 mg/dL Low 8.5-10.2 [facility] Comment on above: Order Comment: Speci men Type: BLOOD SPECIMENOrdering Facility: [facility] Address: [address] [place], [place] [address] Performed By: #### 2 4325-3, 74261-5 ####[facility] LABCLIA [id number] [place] [address] [place] Chloride [Moles/Vol] 99 mmol/L Normal 98-[address] [facility] Comment on above: Order Comment: Speci men Type: BLOOD SPECIMENOrdering Facility: [facility] Address: [address] [place], [place] [address] Performed By: #### 2 4325-3, 73201-7 ####[facility] LABCLIA [id number] [place] [address] [place] CO2 [Moles/Vol] 14 mmol/L Low 22-30 [facility] Comment on above: Order Comment: Speci men Type: BLOOD SPECIMENOrdering Facility: [facility] Address: [address] [place], [place] [address] Performed By: #### 2 4325-3, 82096-8 ####[facility] LABIA [id number] [address] [address] [place] Creatinine [Mass/Vol] 0.80 mg/dL Normal 0.73-1.22 [facility] Comment on above: Order Comment: Ezekiel ramirez Type: BLOOD SPECIMENOrdering Facility: [facility] Address: [address] [place] [address] Performed By: #### 2 4325-3, 63414-1 ####[facility] LABIA [id number] [place] [address] [place] Creatinine and Glomerular filtration rate.predicted panel (S/P/Bld) 103 mL/min/1.73m??? Normal >=60 [facility] Comment on above: Order Comment: [facility] Type: BLOOD SPECIMENOrdering Facility: [facility] Address: [address] [place] [address] Result Comment: Patric mated Glomerular Filtration Rate [...] actual GFR. Performed By: #### 2 4325-3, 53211-3 ####[facility] LABIA [id number] [address] [address] [place] Glucose [Mass/Vol] 272 mg/dL High 74-99 [facility] Comment on above: Order Comment: Speci men Type: BLOOD SPECIMENOrdering Facility: [facility] Address: [address] [place] [address] Result Comment: The [place] Diabetes [employer] (ADA) provides guidance for cutoff [...] Standards of Medical Care in Diabetes 2016, [place] [employer]. Diabetes Care. 2016.39(Suppl 1). Performed By: #### 2 4325-3, 15087-6 ####[facility] LABCLIA [id number] [place] [address] [place] Phosphate [Mass/Vol] 2.2 mg/dL Low 2.7-4.[address] [facility] Comment on above: Order Comment: Speci men Type: BLOOD SPECIMENOrdering Facility: [facility] Address: [address] [place] [address] Performed By: #### 2 4325-3, 08641-4 ####[facility] LABCLIA [id number] [place] [address] [place] Potassium [Moles/Vol] 3.8 mmol/L Normal 3.7-5.1 [facility] Comment on above: Order Comment: Speci men Type: BLOOD SPECIMENOrdering Facility: [facility] Address: [address] [place] [address] Performed By: #### 2 4325-3, 46430-0 ####[facility] LABCLIA [id number] [place] [address] [place] Sodium [Moles/Vol] 128 mmol/L Low 136-144 [facility] Comment on above: Order Comment: Speci men Type: BLOOD SPECIMENOrdering Facility: [facility] Address: [address] [place] [address] Performed By: #### 2 4325-3, 36836-1 ####[facility] LABCLIA [id number] [facility] [address] [address] [place] Urea nitrogen [Mass/Vol] 11 mg/dL Normal 9-24 [facility] Comment on above: Order Comment: Speci men Type: BLOOD SPECIMENOrdering Facility: [facility] Address: [address] [place] [address] Performed By: #### 2 4325-3, 08295-3 ####[facility] LABCLIA [id number] [place] [address] [place] SEPSIS LACTATEon 11-15-2024 Lactate [Moles/Vol] 3.2 mmol/L High <=2.0 [facility] Comment on above: Order Comment: Speci men Type: BLOOD SPECIMENOrdering Facility: [facility] Address: [address] [place] [address] Performed By: #### S LACT ####[facility] LABCLIA [id number] [place] [address] [place] SOCIAL WORKon 11-15-[address] [facility] THERAPY NTon 11-15-[address] [facility] THERAPY NT Normal [facility] TYPE + SCREENon 11-15-[address] [facility] Comment on above: Order Comment: Speci men Type: BLOOD SPECIMENOrdering Facility: [facility] Address: [address] [place] [address] Performed By: #### T SCR ####[facility] BLOOD BANKCLIA [id number] [place] [address] [place] Rh Nom (Bld) Positive Normal [facility] Comment on above: Order Comment: Speci men Type: BLOOD SPECIMENOrdering Facility: [facility] Address: [address] [place] [address] Performed By: #### T SCR ####[facility] BLOOD BANKCLIA [id number] [place] [address] [place] TYPE AND SCREEN EXPIRATION 11/18/2024 23:[address] [facility] Comment on above: Order Comment: Speci men Type: BLOOD SPECIMENOrdering Facility: [facility] Address: [address] [place] [address] Performed By: #### T SCR ####[facility] BLOOD BANKIA [id number] [address] [address] [place] US ASCITES SURVEYon 11-16-19 US ASCITES SURVEY Normal [facility] Basic metabolic 2000 panelon 11-14-2024 Anion gap [Moles/Vol] 11 mmol/L Normal 8-15 [facility] Comment on above: Order Comment: Speci men Type: BLOOD SPECIMENOrdering Facility: [facility] Address: [address] [place], [place] [address] Performed By: #### 2 4321-2, 96765-5, 2776-1, ####[facility] LABCLIA [id number] [address] [address] [place] Calcium [Mass/Vol] 8.9 mg/dL Normal 8.5-10.2 [facility] Comment on above: Order Comment: Speci men Type: BLOOD SPECIMENOrdering Facility: [facility] Address: [address] [place] [address] Performed By: #### 2 4321-2, 32191-9, 2776-08, ####[facility] LABCLIA [id number] [address] [address] [place] Chloride [Moles/Vol] 99 mmol/L Normal 98-[address] [facility] Comment on above: Order Comment: Speci men Type: BLOOD SPECIMENOrdering Facility: [facility] Address: [address] [place] [address] Performed By: #### 2 4321-2, 90025-2, 2776-08, ####[facility] LABCLIA [id number] [address] [address] [place] CO2 [Moles/Vol] 17 mmol/L Low 22-30 [facility] Comment on above: Order Comment: Speci men Type: BLOOD SPECIMENOrdering Facility: [facility] Address: [address] [place] [address] Performed By: #### 2 4321-2, 55153-8, 2776-, ####[facility] LABCLIA [id number] [address] [address] [place] Creatinine [Mass/Vol] 0.89 mg/dL Normal 0.73-1.22 [facility] Comment on above: Order Comment: Speci men Type: BLOOD SPECIMENOrdering Facility: [facility] Address: [address] [place], [place] [address] Performed By: #### 2 4321-2, 94009-3, 2776-08, ####[facility] LABIA [id number] [address] [address] [place] Creatinine and Glomerular filtration rate.predicted panel (S/P/Bld) 99 mL/min/1.73m??? Normal >=60 [facility] Comment on above: Order Comment: Speci men Type: BLOOD SPECIMENOrdering Facility: [facility] Address: [address] [place] [address] Result Comment: Patric mated Glomerular Filtration Rate [...] actual GFR. Performed By: #### 2 4321-2, 91085-4, 277-, ####[facility] LABIA [id number] [address] [address] [place] Glucose [Mass/Vol] 250 mg/dL High 74-99 [facility] Comment on above: Order Comment: Speci men Type: BLOOD SPECIMENOrdering Facility: [facility] Address: [address] [place], [place] [address] Result Comment: The [place] Diabetes Association (ADA) provides guidance for cutoff [...] Standards of Medical Care in Diabetes 2016, [place] Diabetes [employer]. Diabetes Care. 2016.39(Suppl 1). Performed By: #### 2 4321-2, 26727-9, 2776-08, ####[facility] LABCLIA [id number] [place] [address] [place] Potassium [Moles/Vol] 3.6 mmol/L Low 3.7-5.1 [facility] Comment on above: Order Comment: Speci men Type: BLOOD SPECIMENOrdering Facility: [facility] Address: [address] [place] [address] Performed By: #### 2 4321-2, 27717-2, 2776-08, ####[facility] LABIA [id number] [place] [address] [place] Sodium [Moles/Vol] 127 mmol/L Low 136-144 [facility] Comment on above: Order Comment: Speci men Type: BLOOD SPECIMENOrdering Facility: [facility] Address: [address] [place], [place] [address] Performed By: #### 2 4321-2, 34775-1, 2776-08, ####[facility] LABCLIA [id number] [facility] [address] [address] [place] Urea nitrogen [Mass/Vol] 14 mg/dL Normal 9-24 [facility] Comment on above: Order Comment: Speci men Type: BLOOD SPECIMENOrdering Facility: [facility] Address: [address] [place] [address] Performed By: #### 2 4321-2, 57953-7, 2777-1, 31678-6 ####[facility] LABCLIA [id number] [place] [address] [place] CBC W Auto Differential pane l (Bld)on 11-14-2024 Basophils (Bld) [#/Vol] 0.04 10*3/uL Normal <0.11 [facility] Comment on above: Order Comment: Speci men Type: BLOOD SPECIMENOrdering Facility: [facility] Address: [address] [place] [address] Performed By: #### 5 7021-8 ####[facility] LABCLIA [id number] [place] [address] [place] Basophils/100 WBC (Bld) 0.7 % Normal [facility] Comment on above: Order Comment: Speci men Type: BLOOD SPECIMENOrdering Facility: [facility] Address: [address] [place] [address] Performed By: #### 5 7021-8 ####[facility] LABCLIA [id number] [place] [address] [place] Differential cell count method Nom (Bld) Auto Normal [facility] Comment on above: Order Comment: Speci men Type: BLOOD SPECIMENOrdering Facility: [facility] Address: [address] [place] [address] Performed By: #### 5 7021-8 ####[facility] LABCLIA [id number] [place] [address] [place] Eosinophils (Bld) [#/Vol] 0.23 10*3/uL Normal <0.46 [facility] Comment on above: Order Comment: Speci men Type: BLOOD SPECIMENOrdering Facility: [facility] Address: [address] [place] [address] Performed By: #### 5 7021-8 ####[facility] LABCLIA [id number] [place] [address] [place] Eosinophils/100 WBC (Bld) 4.1 % Normal [facility] Comment on above: Order Comment: Speci men Type: BLOOD SPECIMENOrdering Facility: [facility] Address: [address] [place] [address] Performed By: #### 5 7021-8 ####[facility] LABCLIA [id number] [place] [address] [place] Erythrocyte distribution width (RBC) [Ratio] 16.3 % High 11.5-15.0 [facility] Comment on above: Order Comment: Speci men Type: BLOOD SPECIMENOrdering Facility: [facility] Address: [address] [place] [address] Performed By: #### 5 7021-8 ####[facility] LABIA [id number] [place] [address] [place] Hematocrit (Bld) [Volume fraction] 22.7 % Low 39.0-51.0 [facility] Comment on above: Order Comment: Speci men Type: BLOOD SPECIMENOrdering Facility: [facility] Address: [address] [place] [address] Performed By: #### 5 7021-8 ####[facility] LABCLIA [id number] [place] [address] [place] Hemoglobin (Bld) [Mass/Vol] 7.9 g/dL Low 13.0-17.0 [facility] Comment on above: Order Comment: Speci men Type: BLOOD SPECIMENOrdering Facility: [facility] Address: [address] [place] [address] Performed By: #### 5 7021-8 ####[facility] LABIA [id number] [place] [address] [place] Immature granulocytes (Bld) [#/Vol] 0.04 10*3/uL Normal <0.10 [facility] Comment on above: Order Comment: Speci men Type: BLOOD SPECIMENOrdering Facility: [facility] Address: [address] [place] [address] Performed By: #### 5 7021-8 ####[facility] LABCLIA [id number] [place] [address] [place] Immature granulocytes/100 WBC (Bld) 0.7 % Normal [facility] Comment on above: Order Comment: Speci men Type: BLOOD SPECIMENOrdering Facility: [facility] Address: [address] [place] [address] Performed By: #### 5 7021-8 ####[facility] LABCLIA [id number] [place] [address] [place] Lymphocytes (Bld) [#/Vol] 0.72 10*3/uL Low 1.00-4.00 [facility] Comment on above: Order Comment: Speci men Type: BLOOD SPECIMENOrdering Facility: [facility] Address: [address] [place] [address] Performed By: #### 5 7021-8 ####[facility] LABCLIA [id number] [place] [address] [place] Lymphocytes/100 WBC (Bld) 12.8 % Normal [facility] Comment on above: Order Comment: Speci men Type: BLOOD SPECIMENOrdering Facility: [facility] Address: [address] [place] [address] Performed By: #### 5 7021-8 ####[facility] LABIA [id number] [place] [address] [place] MCH (RBC) [Entitic mass] 31.7 pg Normal 26.0-34.0 [facility] Comment on above: Order Comment: Speci men Type: BLOOD SPECIMENOrdering Facility: [facility] Address: [address] [place] [address] Performed By: #### 5 7021-8 ####[facility] LABCLIA [id number] [place] [address] [place] MCHC (RBC) [Mass/Vol] 34.8 g/dL Normal 30.5-36.0 [facility] Comment on above: Order Comment: Speci men Type: BLOOD SPECIMENOrdering Facility: [facility] Address: [address] [place] [address] Performed By: #### 5 7021-8 ####[facility] LABCLIA [id number] [place] [address] [place] MCV (RBC) [Entitic vol] 91.2 fL Normal 80.0-100.0 [facility] Comment on above: Order Comment: Speci men Type: BLOOD SPECIMENOrdering Facility: [facility] Address: [address] [place] [address] Performed By: #### 5 7021-8 ####[facility] LABCLIA [id number] [place] [address] [place] Monocytes (Bld) [#/Vol] 0.68 10*3/uL Normal <0.87 [facility] Comment on above: Order Comment: Speci men Type: BLOOD SPECIMENOrdering Facility: [facility] Address: [address] [place] [address] Performed By: #### 5 7021-8 ####[facility] LABCLIA [id number] [place] [address] [place] Monocytes/100 WBC (Bld) 12.1 % Normal C [facility] Comment on above: Order Comment: Speci men Type: BLOOD SPECIMENOrdering Facility: [facility] Address: [address] [place] [address] Performed By: #### 5 7021-8 ####[facility] LABCLIA [id number] [place] [id number] [place] Neutrophils (Bld) [#/Vol] 3.92 10*3/uL Normal 1.45-7.50 [facility] Comment on above: Order Comment: Speci men Type: BLOOD SPECIMENOrdering Facility: [facility] Address: [address] [place] [address] Performed By: #### 5 7021-8 ####[facility] LABCLIA [id number] [place] [address] [place] Neutrophils/100 WBC (Bld) 69.6 % Normal [facility] Comment on above: Order Comment: Speci men Type: BLOOD SPECIMENOrdering Facility: [facility] Address: [address] [place] [address] Performed By: #### 5 7021-8 ####[facility] LABCLIA [id number] [place] [address] [place] Nucleated RBC (Bld) [#/Vol] 10*3/uL Normal <0.01 [facility] Comment on above: Order Comment: Speci men Type: BLOOD SPECIMENOrdering Facility: [facility] Address: [address] [place] [address] Performed By: #### 5 7021-8 ####[facility] LABCLIA [id number] [place] [address] [place] Nucleated RBC/100 WBC (Bld) [Ratio] 0.0 /[address] [facility] Comment on above: Order Comment: Speci men Type: BLOOD SPECIMENOrdering Facility: [facility] Address: [address] [place] [address] Performed By: #### 5 7021-8 ####[facility] LABCLIA [id number] [place] [address] [place] Platelet mean volume (Bld) [Entitic vol] 12.1 fL Normal 9.0-12.7 [facility] Comment on above: Order Comment: Speci men Type: BLOOD SPECIMENOrdering Facility: [facility] Address: [address] [place] [address] Performed By: #### 5 7021-8 ####[facility] LABIA [id number] [place] [address] [place] Platelets (Bld) [#/Vol] 43 10*3/uL Low 150-400 [facility] Comment on above: Order Comment: Speci men Type: BLOOD SPECIMENOrdering Facility: [facility] Address: [address] [place] [address] Result Comment: Resu lts checked and verified.No clot detected. Performed By: #### 5 7021-8 ####[facility] [id number] [place] [address] [place] RBC (Bld) [#/Vol] 2.49 10*6/uL Low 4.20-6.00 [facility] Comment on above: Order Comment: Speci men Type: BLOOD SPECIMENOrdering Facility: [facility] Address: [address] [place] [address] Performed By: #### 5 7021-8 ####[facility] [id number] [place] [address] [place] WBC (Bld) [#/Vol] 5.63 10*3/uL Normal 3.70-11.00 [facility] Comment on above: Order Comment: Speci men Type: BLOOD SPECIMENOrdering Facility: [facility] Address: [address] [place] [address] Performed By: #### 5 7021-8 ####[facility] [id number] [place] [address] [place] Fibrinogen PPP-mCncon 2024 Fibrinogen Coag (PPP) [Mass/Vol] 119 mg/dL Low 200-400 [facility] Comment on above: Order Comment: Speci men Type: BLOOD SPECIMENOrdering Facility: [facility] Address: [address] [place] [address] Performed By: #### 3 255-7, 89321-5 ####[facility] LABCLIA [id number] [address] [address] [place] Hepatic function 2000 panelo n 11-14-2024 Albumin [Mass/Vol] 2.8 g/dL Low 3.9-4.9 [facility] Comment on above: Order Comment: Speci men Type: BLOOD SPECIMENOrdering Facility: [facility] Address: [address] [place] [address] Performed By: #### 2 4321-2, 02377-7, 2777-1, 07249-0 ####[facility] LABIA [id number] [place] [id number] [place] ALP [Catalytic activity/Vol] 248 U/L High 38-113 [facility] Comment on above: Order Comment: Speci men Type: BLOOD SPECIMENOrdering Facility: [facility] Address: [address] [place] [address] Performed By: #### 2 4321-2, 52870-5, 2777-1, 83560-9 ####[facility] LABIA [id number] [place] [id number] [place] ALT [Catalytic activity/Vol] 29 U/L Normal 10-54 [facility] Comment on above: Order Comment: Speci men Type: BLOOD SPECIMENOrdering Facility: [facility] Address: [address] [place], [place] [address] Performed By: #### 2 4321-2, 32084-5, 2777-1, 18023-6 ####[facility] LABIA [id number] [address] [address] [place] AST [Catalytic activity/Vol] 62 U/L High 14-40 [facility] Comment on above: Order Comment: Speci men Type: BLOOD SPECIMENOrdering Facility: [facility] Address: [address] [place], [place] [address] Performed By: #### 2 4321-2, 15163-9, 2777-1, ####[facility] LABCLIA [id number] [place] [address] [place] Bilirubin [Mass/Vol] 1.7 mg/dL High 0.2-1.[address] [facility] Comment on above: Order Comment: Speci men Type: BLOOD SPECIMENOrdering Facility: [facility] Address: [address] [place] [address] Performed By: #### 2 4321-2, 60274-6, 277-1, ####[facility] LABIA [id number] [place] [address] [place] Bilirubin.conjugated [Mass/Vol] 1.0 mg/dL High <0.3 [facility] Comment on above: Order Comment: Speci men Type: BLOOD SPECIMENOrdering Facility: [facility] Address: [address] [place] [address] Performed By: #### 2 4321-2, 12704-1, 277-, ####[facility] LABIA [id number] [place] [address] [place] Protein [Mass/Vol] 5.4 g/dL Low 6.3-8.0 [facility] Comment on above: Order Comment: Speci men Type: BLOOD SPECIMENOrdering Facility: [facility] Address: [address] [place] [address] Performed By: #### 2 4321-2, 64508-4, 2777-1, ####[facility] LABIA [id number] [place] [address] [place] Magnesium SerPl-mCncon 11-14 Magnesium [Mass/Vol] 1.6 mg/dL Low 1.7-2.[address] [facility] Comment on above: Order Comment: Speci men Type: BLOOD SPECIMENOrdering Facility: [facility] Address: [address] [place] [address] Performed By: #### 2 4321-2, 76840-1, 2777-1, 32182-3 ####[facility] LABCLIA [id number] [place] [address] [place] PT panel Coag (PPP)on 2024 INR Coag (PPP) [Relative time] 1.8 {INR} High 0.9-1.3 [facility] Comment on above: Order Comment: Ezekiel ramirez Type: BLOOD SPECIMENOrdering Facility: [facility] Address: [address] [place] [address] Result Comment: Sarah min K Antagonist (VKA) Therapeutic Range: INR 2 to 3 (Target INR of 2.5)Note: For patients treated with VKA drugs, such as warfarin, the [place] [employer] 2012 Guideline recommends [...] al. Chest 2012, 141:7S-47SNishimura RA, et al. [facility] 2017, 70: 252-289 Performed By: #### 3 255-7, 33204-3 ####[facility] LABIA [id number] [place] [id number] [place] PT Coag (PPP) [Time] 19.2 s High 9.7-13.[address] [facility] Comment on above: Order Comment: Ezekiel ramirez Type: BLOOD SPECIMENOrdering Facility: [facility] Address: [address] [place] [address] Performed By: #### 3 255-7, 58740-9 ####[facility] LABCLIA [id number] [place] [address] [place] Phosphate SerPl-mCncon 11-14 Phosphate [Mass/Vol] 1.9 mg/dL Low 2.7-4.8 [facility] Comment on above: Order Comment: Speci men Type: BLOOD SPECIMENOrdering Facility: [facility] Address: [address] [place] [address] Performed By: #### 2 4321-2, 69365-6, 2777-1, 62585-0 ####[facility] LABIA [id number] [place] [address] [place] URINALYSIS, REFLEX MICROSCOP ICon 11-14-2024 Bacteria LM.HPF (Urine sed) [#/Area] Negative Normal Negative [facility] Comment on above: Order Comment: Speci men Type: URINE SPECIMENOrdering Facility: [facility] Address: [address] [place] [address] Performed By: #### L [id number] ####[facility] LABIA [id number] [place] [address] [place] Bilirubin Ql (U) 1+ Abnormal Negative [facility] Comment on above: Order Comment: Speci men Type: URINE SPECIMENOrdering Facility: [facility] Address: [address] [place] [address] Result Comment: Sugg est correlation with clinical findings and serum bilirubin if clinically indicated. Performed By: #### L [id number] ####[facility] LABIA [id number] [place] [address] [place] Clarity (Unsp spec) Cloudy Abnormal Clear [facility] Comment on above: Order Comment: Speci men Type: URINE SPECIMENOrdering Facility: [facility] Address: [address] [place] [address] Performed By: #### L [id number] ####[facility] LABCLIA [id number] [place] [address] [place] Color (U) [place] Abnormal Yellow [facility] Comment on above: Order Comment: Speci men Type: URINE SPECIMENOrdering Facility: [facility] Address: [address] [place] [address] Performed By: #### L [id number] ####[facility] LABCLIA [id number] [place] [address] [place] Epithelial cells LM.HPF (Urine sed) [#/Area] None Seen Normal [facility] Comment on above: Order Comment: Speci men Type: URINE SPECIMENOrdering Facility: [facility] Address: [address] [place] [address] Performed By: #### L [id number] ####[facility] LABCLIA [id number] [place] [address] [place] Glucose Test strip (U) [Mass/Vol] Negative Normal Negative [facility] Comment on above: Order Comment: Speci men Type: URINE SPECIMENOrdering Facility: [facility] Address: [address] [place] [address] Performed By: #### L [id number] ####[facility] LABCLIA [id number] [place] [address] [place] Hemoglobin Ql (U) 3+ Abnormal Negative [facility] Comment on above: Order Comment: Speci men Type: URINE SPECIMENOrdering Facility: [facility] Address: [address] [place] [address] Performed By: #### L [id number] ####[facility] LABCLIA [id number] [place] [address] [place] Hyaline casts (Urine sed) [#/Area] 0 /[LPF] Normal 0 /LPF [facility] Comment on above: Order Comment: Speci men Type: URINE SPECIMENOrdering Facility: [facility] Address: [address] [place] [address] Performed By: #### L [id number] ####[facility] LABCLIA [id number] [place] [address] [place] Ketones Ql (U) Negative Normal Negative [facility] Comment on above: Order Comment: Speci men Type: URINE SPECIMENOrdering Facility: [facility] Address: [address] [place] [address] Performed By: #### L [id number] ####[facility] LABCLIA [id number] [place] [address] [place] Leukocyte esterase Test strip Ql (U) 3+ Abnormal Negative [facility] Comment on above: Order Comment: Speci men Type: URINE SPECIMENOrdering Facility: [facility] Address: [address] [place] [address] Performed By: #### L [id number] ####[facility] LABCLIA [id number] [place] [address] [place] Nitrite Ql (U) Negative Normal Negative [facility] Comment on above: Order Comment: Speci men Type: URINE SPECIMENOrdering Facility: [facility] Address: [address] [place] [address] Performed By: #### L [id number] ####[facility] LABCLIA [id number] [place] [address] [place] pH (U) 6.0 [pH] Normal <8.5 [facility] Comment on above: Order Comment: Speci men Type: URINE SPECIMENOrdering Facility: [facility] Address: [address] [place] [address] Performed By: #### L [id number] ####[facility] LABCLIA [id number] [place] [id number] [place] Protein (U) [Mass/Vol] 2+ Abnormal Negative Cl [facility] Comment on above: Order Comment: Speci men Type: URINE SPECIMENOrdering Facility: [facility] Address: [address] [place] [address] Performed By: #### L [id number] ####[facility] [id number] [place] [address] [place] RBC LM.HPF (Urine sed) [#/Area] /[HPF] Abnormal 0-2 /HPF [facility] Comment on above: Order Comment: Speci men Type: URINE SPECIMENOrdering Facility: [facility] Address: [address] [place] [address] Performed By: #### L [id number] ####[facility] [id number] [place] [address] [place] Specific gravity (U) [Rel density] 1.017 Normal 1.005-1.030 [facility] Comment on above: Order Comment: Speci men Type: URINE SPECIMENOrdering Facility: [facility] Address: [address] [place] [address] Performed By: #### L [id number] ####[facility] [id number] [address] [place] Urobilinogen Ql (U) 0.2 EU/dL Normal 0.2-1.0 EU/dL [facility] Comment on above: Order Comment: Speci men Type: URINE SPECIMENOrdering Facility: [facility] Address: [address] [place] [address] Performed By: #### L [id number] ####[facility] [id number] [place] [address] [place] WBC LM.HPF (Urine sed) [#/Area] /[HPF] Abnormal 0-5 /HPF [facility] Comment on above: Order Comment: Speci men Type: URINE SPECIMENOrdering Facility: [facility] Address: [address] [place] [address] Performed By: #### L [id number] ####[facility] LABIA [id number] [place] [address] [place] Yeast.budding LM.HPF (Urine sed) [#/Area] Present Abnormal None Seen [facility] Comment on above: Order Comment: Speci men Type: URINE SPECIMENOrdering Facility: [facility] Address: [address] [place] [address] Performed By: #### L [id number] ####[facility] [id number] [place] [address] [place] 25(OH)D3 [facility]-ncon 2024 25-hydroxyvitamin D3 [Mass/Vol] 16.2 ng/mL Low 31.0-80.0 [facility] Comment on above: Order Comment: Speci men Type: BLOOD SPECIMENOrdering Facility: [facility] Address: [address] [place] [address] Performed By: #### 7 852-7, MEASLG, VZVG2, 1988-10 ####[facility] [id number] [place] [address] [place] A-Tocopherol Vit E SerPl-mCn con 11-13-2024 Alpha tocopherol [Mass/Vol] 3.3 mg/L Low 6.0-23.0 [facility] Comment on above: Order Comment: Speci men Type: BLOOD SPECIMENOrdering Facility: [facility] Address: [address] [place] [address] Performed By: #### 2 923-1, 1823-4 ####[facility] [id number] [place] [address] [place] ALPHA-1 ANTITRYPSIN GENOon 0 11-13-2024 HA1AT REVIEWED BY Michelle [facility] Comment on above: Order Comment: Speci men Type: BLOOD SPECIMENOrdering Facility: [facility] Address: [address] [place] [address] Result Comment: Alph a-1 Antitrypsin GenotypingLaboratory Accession Number: [id number]:No Variant Detected in SERPINA1 (PI*MM)Interpretation:DNA testing indicates [...] the two mostcommon pathogenic variants: S (c.863A>T, p.Rnc052Abo, g.54864710), Z(c.1096G>A, p.Kvj869Nwf, g.32092782), and the rarer variants: F(c.739C>T, p.Uqg950Jls, g.59087206), I (c.187C>T, p.Hkp94Ixd,g.28217706).Limitations:This Laboratory Developed Test (LDT) is designed to [...] been cleared or approved by the FDA. [facility] is regulated under CLIAas certified to perform high-complexity testing. This test is used forclinical purposes. It should not be regarded as investigational or forresearch.Test performed at [facility], [address] [place] [address], [id number]. CLIA Number: [id number]:1) Kait HIRSCH, Samir G, Essence ML, Ilan [...] Salvador SJ, Nicole. Molecular characterisation of three pwfod-4-ivizjzsshdl deficiencyvariants: proteinase inhibitor (Pi) nullcardiff (Iqh449----Tlc);PiMmalton (Nwj43----xoehhbje) and PiI (Nyo21----Rgs). Hum Trisha. 1988Dec;84(1):55-8.4) Flor WHITFIELD and Kait HIRSCH. Clinical practice.Alpha1-antitrypsin deficiency. N Engl J Med. 2008;360(01)4502-00.5) Margot BETANCOURT, Kwame F, Prakash HIRSCH. The significance of the F variantof diupf-8-bknlzgnbhce and unique case report of a PiFF homozygote.BMC Pulm Med. 2013 7;14:132.6) Ivania MARIE, Elena SHETTY, and Jaziel Carlson. Alpha-1 AntitrypsinDeficiency. 2005May 30 [Updated 2016August 22]. In: Juanito HIRSCH, Nemesio Jimenez TO, et al., editors. [employer]ws [Internet]. [place] ([place]):[facility]; 3895-4134. Available from:http://www.ncbi.nlm.nih.gov/books/BPK9450/Interpretation performed at remote location (R0A1) by Fifi España MD Performed By: #### H A1AT ####[facility] LIMSCLIA [id number] [address] [place] ANES POSTPROC EVALon 025 ANES POSTPROC EVAL Normal [facility] ANES PRE-OPon 11-13-2024 ANES PRE-OP Normal [facility] Alpha tocopherol [Mass/Vol]o n 11-13-2024 Beta+gamma tocopherol [Mass/Vol] 0.6 mg/L Normal 0.3-3.2 [facility] Comment on above: Order Comment: Speci men Type: BLOOD SPECIMENOrdering Facility: [facility] Address: [address] [place] [address] Result Comment: This test was developed, and [...] 923-1, 1823-4 ####[facility] LABCLIA [id number] [place] [address] [place] Basic metabolic 2000 panelon 11-13-2024 Anion gap [Moles/Vol] 9 mmol/L Normal 8-15 [facility] Comment on above: Order Comment: Speci men Type: BLOOD SPECIMENOrdering Facility: [facility] Address: [address] [place] [address] Performed By: #### 2 4321-2, 24643-1, 38914-0, 01562-9 ####[facility] LABCLIA [id number] [place] [address] [address] [place] Calcium [Mass/Vol] 9.1 mg/dL Normal 8.5-10.2 [facility] Comment on above: Order Comment: Speci men Type: BLOOD SPECIMENOrdering Facility: [facility] Address: [address] [place] [address] Performed By: #### 2 4321-2, 03173-0, 09419-6, 04657-8 ####[facility] LABCLIA [id number] [facility] [place] [id number] [place] Chloride [Moles/Vol] 99 mmol/L Normal 98-[address] [facility] Comment on above: Order Comment: Speci men Type: BLOOD SPECIMENOrdering Facility: [facility] Address: [address] [place] [address] Performed By: #### 2 4321-2, 33313-8, 62315-0, 16313-0 ####[facility] LABCLIA [id number] [facility]UEUCSF [facility] [place] [id number] [place] CO2 [Moles/Vol] 16 mmol/L Low 22-30 [facility] Comment on above: Order Comment: Speci men Type: BLOOD SPECIMENOrdering Facility: [facility] Address: [address] [place] [address] Performed By: #### 2 4321-2, 71544-4, 26497-5, 55599-2 ####[facility] LABCLIA [id number] [place] [address] [address] [place] Creatinine [Mass/Vol] 1.10 mg/dL Normal 0.73-1.22 [facility] Comment on above: Order Comment: Ezekiel ramirez Type: BLOOD SPECIMENOrdering Facility: [facility] Address: [address] [place] [id number] Performed By: #### 2 4321-2, 61759-5, 01454-5, 08063-6 ####[facility] LABCLIA [id number] [place] [address] [place] Creatinine and Glomerular filtration rate.predicted panel (S/P/Bld) 78 mL/min/1.73m??? Normal >=60 [facility] Comment on above: Order Comment: Ezekiel james Type: BLOOD SPECIMENOrdering Facility: [facility] Address: [address] [place] [address] Result Comment: Patric mated Glomerular Filtration Rate [...] actual GFR. Performed By: #### 2 4321-2, 11840-6, 05388-9, 88620-2 ####[facility] LABCLIA [id number] [address] [address] [place] Glucose [Mass/Vol] 278 mg/dL High 74-99 [facility] Comment on above: Order Comment: Ezekiel ramirez Type: BLOOD SPECIMENOrdering Facility: [facility] Address: [address] [place] [address] Result Comment: The [place] Diabetes Association (ADA) provides guidance for cutoff [...] Standards of Medical Care in Diabetes 2016, [place] Diabetes Association. Diabetes Care. 2016.39(Suppl 1). Performed By: #### 2 4321-2, 85423-8, 64149-1, 83456-4 ####[facility] LABCLIA [id number] [address] [address] [place] Potassium [Moles/Vol] 4.1 mmol/L Normal 3.7-5.1 [facility] Comment on above: Order Comment: Speci men Type: BLOOD SPECIMENOrdering Facility: [facility] Address: [address] [place] [address] Performed By: #### 2 4321-2, 24953-0, 98465-5, 05541-1 ####[facility] LABIA [id number] [place] [address] [place] Sodium [Moles/Vol] 124 mmol/L Low 136-144 [facility] Comment on above: Order Comment: Speci men Type: BLOOD SPECIMENOrdering Facility: [facility] Address: [address] [place] [address] Performed By: #### 2 4321-2, 80448-9, 53130-3, 04316-3 ####[facility] LABIA [id number] [place] [address] [place] Urea nitrogen [Mass/Vol] 20 mg/dL Normal 9-24 [facility] Comment on above: Order Comment: Speci men Type: BLOOD SPECIMENOrdering Facility: [facility] Address: [address] [place] [address] Performed By: #### 2 4321-2, 43223-3, 16882-3, 14423-3 ####[facility] LABCLIA [id number] [address] [address] [place] CBC W Auto Differential pane l (Bld)on 11-13-2024 Basophils (Bld) [#/Vol] 10*3/uL Normal <0.11 [facility] Comment on above: Order Comment: Speci men Type: BLOOD SPECIMENOrdering Facility: [facility] Address: [address] [place] [address] Performed By: #### 5 7021-8 ####[facility] LABCLIA [id number] [facility]UEUCSF [facility] [address], [facility] [place] Basophils/100 WBC (Bld) 0.4 % Normal [facility] Comment on above: Order Comment: Speci men Type: BLOOD SPECIMENOrdering Facility: [facility] Address: [address] [place] [address] Performed By: #### 5 7021-8 ####[facility] LABCLIA [id number] [facility] [address], [place] [address] [place] Differential cell count method Nom (Bld) Auto Normal [facility] Comment on above: Order Comment: Speci men Type: BLOOD SPECIMENOrdering Facility: [facility] Address: [address] [place] [address] Performed By: #### 5 7021-8 ####[facility] LABCLIA [id number] [place] [address] [place] Eosinophils (Bld) [#/Vol] 0.18 10*3/uL Normal <0.46 [facility] Comment on above: Order Comment: Speci men Type: BLOOD SPECIMENOrdering Facility: [facility] Address: [address] [place] [address] Performed By: #### 5 7021-8 ####[facility] LABCLIA [id number] [place] [address] [place] Eosinophils/100 WBC (Bld) 3.3 % Normal [facility] Comment on above: Order Comment: Speci men Type: BLOOD SPECIMENOrdering Facility: [facility] Address: [address] [place] [address] Performed By: #### 5 7021-8 ####[facility] LABCLIA [id number] [place] [address] [place] Erythrocyte distribution width (RBC) [Ratio] 17.0 % High 11.5-15.0 [facility] Comment on above: Order Comment: Speci men Type: BLOOD SPECIMENOrdering Facility: [facility] Address: [address] [place] [address] Performed By: #### 5 7021-8 ####[facility] LABIA [id number] [place] [address] [place] Hematocrit (Bld) [Volume fraction] 21.6 % Low 39.0-51.0 [facility] Comment on above: Order Comment: Speci men Type: BLOOD SPECIMENOrdering Facility: [facility] Address: [address] [place] [address] Performed By: #### 5 7021-8 ####[facility] LABIA [id number] [place] [address] [place] Hemoglobin (Bld) [Mass/Vol] 7.4 g/dL Low 13.0-17.0 [facility] Comment on above: Order Comment: Speci men Type: BLOOD SPECIMENOrdering Facility: [facility] Address: [address] [place] [address] Performed By: #### 5 7021-8 ####[facility] LABIA [id number] [place] [address] [place] Immature granulocytes (Bld) [#/Vol] 0.04 10*3/uL Normal <0.10 [facility] Comment on above: Order Comment: Speci men Type: BLOOD SPECIMENOrdering Facility: [facility] Address: [address] [place] [address] Performed By: #### 5 7021-8 ####[facility] LABIA [id number] [place] [address] [place] [address] [place] Immature granulocytes/100 WBC (Bld) 0.7 % Normal [facility] Comment on above: Order Comment: Speci men Type: BLOOD SPECIMENOrdering Facility: [facility] Address: [address] [place] [address] Performed By: #### 5 7021-8 ####[facility] LABCLIA [id number] [place] [address] [place] Lymphocytes (Bld) [#/Vol] 0.64 10*3/uL Low 1.00-4.00 [facility] Comment on above: Order Comment: Speci men Type: BLOOD SPECIMENOrdering Facility: [facility] Address: [address] [place] [address] Performed By: #### 5 7021-8 ####[facility] LABCLIA [id number] [place] [address] [place] Lymphocytes/100 WBC (Bld) 11.6 % Normal [facility] Comment on above: Order Comment: Speci men Type: BLOOD SPECIMENOrdering Facility: [facility] Address: [address] [place] [address] Performed By: #### 5 7021-8 ####[facility] LABCLIA [id number] [place] [address] [place] MCH (RBC) [Entitic mass] 31.8 pg Normal 26.0-34.0 [facility] Comment on above: Order Comment: Speci men Type: BLOOD SPECIMENOrdering Facility: [facility] Address: [address] [place] [address] Performed By: #### 5 7021-8 ####[facility] LABCLIA [id number] [place] [address] [place] MCHC (RBC) [Mass/Vol] 34.3 g/dL Normal 30.5-36.0 [facility] Comment on above: Order Comment: Speci men Type: BLOOD SPECIMENOrdering Facility: [facility] Address: [address] [place] [address] Performed By: #### 5 7021-8 ####[facility] LABCLIA [id number] [place] [address] [place] MCV (RBC) [Entitic vol] 92.7 fL Normal 80.0-100.0 [facility] Comment on above: Order Comment: Speci men Type: BLOOD SPECIMENOrdering Facility: [facility] Address: [address] [place] [address] Performed By: #### 5 7021-8 ####[facility] LABCLIA [id number] [place] [address] [place] Monocytes (Bld) [#/Vol] 0.68 10*3/uL Normal <0.87 [facility] Comment on above: Order Comment: Speci men Type: BLOOD SPECIMENOrdering Facility: [facility] Address: [address] [place] [address] Performed By: #### 5 7021-8 ####[facility] LABIA [id number] [place] [address] [place] Monocytes/100 WBC (Bld) 12.4 % Normal C [facility] Comment on above: Order Comment: Speci men Type: BLOOD SPECIMENOrdering Facility: [facility] Address: [address] [place] [address] Performed By: #### 5 7021-8 ####[facility] LABCLIA [id number] [place] [address] [place] Neutrophils (Bld) [#/Vol] 3.94 10*3/uL Normal 1.45-7.50 [facility] Comment on above: Order Comment: Speci men Type: BLOOD SPECIMENOrdering Facility: [facility] Address: [address] [place] [address] Performed By: #### 5 7021-8 ####[facility] LABCLIA [id number] [place] [address] [place] Neutrophils/100 WBC (Bld) 71.6 % Normal [facility] Comment on above: Order Comment: Speci men Type: BLOOD SPECIMENOrdering Facility: [facility] Address: [address] [place] [address] Performed By: #### 5 7021-8 ####[facility] LABCLIA [id number] [place] [address] [place] Nucleated RBC (Bld) [#/Vol] 10*3/uL Normal <0.01 [facility] Comment on above: Order Comment: Speci men Type: BLOOD SPECIMENOrdering Facility: [facility] Address: [address] [place] [address] Performed By: #### 5 7021-8 ####[facility] LABCLIA [id number] [place] [address] [place] Nucleated RBC/100 WBC (Bld) [Ratio] 0.0 /[address] [facility] Comment on above: Order Comment: Speci men Type: BLOOD SPECIMENOrdering Facility: [facility] Address: [address] [place] [address] Performed By: #### 5 7021-8 ####[facility] LABCLIA [id number] [place] [address] [place] Platelet mean volume (Bld) [Entitic vol] 11.7 fL Normal 9.0-12.7 [facility] Comment on above: Order Comment: Speci men Type: BLOOD SPECIMENOrdering Facility: [facility] Address: [address] [place] [address] Performed By: #### 5 7021-8 ####[facility] LABCLIA [id number] [place] [address] [place] Platelets (Bld) [#/Vol] 38 10*3/uL Low 150-400 C [facility] Comment on above: Order Comment: Speci men Type: BLOOD SPECIMENOrdering Facility: [facility] Address: [address] [place] [address] Result Comment: Resu lts checked and verified.No clot detected. Performed By: #### 5 7021-8 ####[facility] LABCLIA [id number] [place] [address] [place] RBC (Bld) [#/Vol] 2.33 10*6/uL Low 4.20-6.00 [facility] Comment on above: Order Comment: Speci men Type: BLOOD SPECIMENOrdering Facility: [facility] Address: [address] [place] [address] Performed By: #### 5 7021-8 ####[facility] LABCLIA [id number] [place] [address] [place] WBC (Bld) [#/Vol] 5.50 10*3/uL Normal 3.70-11.00 [facility] Comment on above: Order Comment: Speci men Type: BLOOD SPECIMENOrdering Facility: [facility] Address: [address] [place] [address] Performed By: #### 5 7021-8 ####[facility] LABIA [id number] [place] [address] [place] CMV IgG Qnon 11-13-2024 CMV IGG QUAL Negative Normal Negative [facility] Comment on above: Order Comment: Speci men Type: BLOOD SPECIMENOrdering Facility: [facility] Address: [address] [place] [address] Result Comment: No s erological evidence of past exposure to Cytomegalovirus. Cannot exclude recent infection if the specimen collected within 4-6 weeks after infection. Performed By: #### 7 852-7, MEASLG, VZVG2, 1988-10 ####[facility] LABCLIA [id number] [place] [address] [place] CMV IgG SerPl-aCncon 025 CMV IgG Qn 0.37 U/mL Normal [facility] Comment on above: Order Comment: Speci men Type: BLOOD SPECIMENOrdering Facility: [facility] Address: [address] [place] [address] Result Comment: The magnitude of the measured result is not indicative of the amount of antibody present.U/mL values are interpreted as follows:Negative <0.6Equivocal 0.6 to <0.70Positive >=0.70 Performed By: #### 7 852-7, MEASLG, VZVG2, 1988- ####[facility] LABCLIA [id number] [place] [address] [place] CONSULT PROGon 11-13-[address] [facility] CYTOLOGY NON-GYNon [address] [facility] Comment on above: Order Comment: Speci men Type: FLUID SPECIMENOrdering Facility: [facility] Address: [address] [place] [address] Result Comment: Shellie pugh Developed Test (LDT) Disclaimer:Performance characteristics of immunohistochemical, immunofluorescent, and chromogenic in-situ hybridization tests have been determined by the performing laboratory within [facility] Pathology and Laboratory Medicine Department ([facility], [facility], [facility], [facility], [facility], [facility], or [facility]) in a manner consistent with [...] stain appropriately. Performed By: #### C YTONON ####[facility] LABCLIA [id number] [place] [address] [place] CASE REPORT Normal [facility] Comment on above: Order Comment: Speci men Type: FLUID SPECIMENOrdering Facility: [facility] Address: [address] [place] [address] Result Comment: [facility] Cytology Report Case: [id number] Provider: Deb Fox MD Collected: 11/13/2024 02:46 PMOrdering Location: [place] [address] Received: 11/15/2024 05:01 AMPathologist: Foster Newton MDSpecimen: Urine, Midstream Performed By: #### C YTONON ####[facility] LABCLIA [id number] [address] [address] [place] CLINICAL HISTORY Staghorn calculi, s/ p L sided stenting with hematuria Normal [facility] Comment on above: Order Comment: Speci men Type: FLUID SPECIMENOrdering Facility: [facility] Address: [address] [place] [address] Performed By: #### C YTONON ####[facility] LABCLIA [id number] [address] DIAGNOSIS COMMENT Normal [facility] Comment on above: Order Comment: Speci men Type: FLUID SPECIMENOrdering Facility: [facility] Address: [address] [place] [address] Result Comment: A. F ungal yeast forms are seen, morphologically consistent with Mary species. Clinical correlation is suggested. Performed By: #### C YTONON ####[facility] LABCLIA [id number] [address] FINAL DIAGNOSIS Normal [facility] Comment on above: Order Comment: Speci men Type: FLUID SPECIMENOrdering Facility: [facility] Address: [address] [place] [address] Result Comment: A - Urine, Voided: Negative for high-grade urothelial carcinoma. Abundant acute inflammation (see comment). at 1141 EDT Performed By: #### C YTONON ####[facility] LABCLIA [id number] [address] [address] [place] FINAL PERFORMING LAB Normal [facility] Comment on above: Order Comment: Speci men Type: FLUID SPECIMENOrdering Facility: [facility] Address: [address] [place] [address] Result Comment: Tech nical component, recreation facility attendant screening performed at: [facility], [address] [place] [address] CLIA: [id number] interpretation performed at: [facility], [address] [place] [address] CLIA# [id number] Director: Titi Voss MD Performed By: #### C YTONON ####[facility] LABCLIA [id number] [place] [address] [place] GROSS DESCRIPTION Normal [facility] Comment on above: Order Comment: Speci [facility] Type: FLUID SPECIMENOrdering Facility: [facility] Address: [address] [place] [address] Result Comment: A. U rine, [id number] cc cloudy lexis fluid . ThinPrep prepared. Performed By: #### C YTONON ####[facility] LABCLIA [id number] [place] [address] [place] EBV capsid IgG Qn (S)on 11-02 EBV VCA IGG, QUAL Positive Abnormal Negative [facility] Comment on above: Order Comment: Speci [facility] Type: BLOOD SPECIMENOrdering Facility: [facility] Address: [address] [place] [address] Result Comment: The result suggests recent or past EBV infection. The final interpretation should be done in the context of other EBV serology panel results. Performed By: #### 8 039-0, 7885-7 ####[facility] LABCLIA [id number] [place] [address] [place] Fibrinogen PPP-mCncon 2024 Fibrinogen Coag (PPP) [Mass/Vol] 94 mg/dL Low 200-400 [facility] Comment on above: Order Comment: Speci [facility] Type: BLOOD SPECIMENOrdering Facility: [facility] Address: [address] [place] [address] Result Comment: Samp le checked for clot. Performed By: #### 3 4528-0, 3255-7 ####[facility] LABCLIA [id number] [place] [address] [place] HBV core Ab Ser Qlon 025 HBV core Ab Ql (S) Negative Normal Negative [facility] Comment on above: Order Comment: Speci men Type: BLOOD SPECIMENOrdering Facility: [facility] Address: [address] [place] [address] Result Comment: No e vidence of current or past infection with Hepatitis B virus. Should recent infection be suspected, repeat testing may be considered 3-4 weeks after this draw. Performed By: #### 3 1201-7, 24628-4, AHAVG, 5195-3, 05979-3 ####[facility] LABCLIA [id number] [address] OF [facility] HBV surface Ab Ql (S)on 11-02 HBV surface Ab Qn (S) <8.00 Normal [facility] Comment on above: Order Comment: Speci men Type: BLOOD SPECIMENOrdering Facility: [facility] Address: [address] [place] [address] Result Comment: <8 m IU/mL: No serological evidence of immunity to Hepatitis B Virus.>/= 8 to <12 mIU/mL: No serological evidence of immunity to Hepatitis B Virus.>/= 12 mIU/mL: Consistent with serological evidence of immunity to Hepatitis B Virus. Performed By: #### 3 1201-7, 50688-4, AHAVG, 5195-3, 93425-5 ####[facility] LABCLIA [id number] [address] [place] HBV surface Ab Ser Qlon 11-02 HBV surface Ab Ql (S) Negative Normal [facility] Comment on above: Order Comment: Speci men Type: BLOOD SPECIMENOrdering Facility: [facility] Address: [address] [place] [address] Result Comment: No s erological evidence of immunity to Hepatitis B Virus. Performed By: #### 3 1201-7, 76783-6, AHAVG, 5195-3, 77745-8 ####[facility] LABCLIA [id number] [place] [address] [place] HBV surface Ag Ser Qlon 11-02 HBV surface Ag Ql (S) Negative Normal Negative [facility] Comment on above: Order Comment: Speci men Type: BLOOD SPECIMENOrdering Facility: [facility] Address: [address] [place] [address] Performed By: #### 3 1201-7, 15813-0, AHAVG, 5195-3, 20798-8 ####[facility] LABIA [id number] [place] [address] [place] HCV Ab Ser Qlon 11-13-2024 HCV Ab Ql (S) Negative Normal Negative [facility] Comment on above: Order Comment: Speci [facility] Type: BLOOD SPECIMENOrdering Facility: [facility] Address: [address] [place] [address] Result Comment: The result suggests no evidence of infection with Hepatitis C virus. Should recent infection be suspected, repeat testing may be considered 4-6 weeks after this draw. Performed By: #### 1 6128-1 ####[facility] LABCLIA [id number] [place] [address] [place] HEPATITIS A ANTIBODY, IGGon 11-13-2024 HAV IgG Ql (S) Negative Normal [facility] Comment on above: Order Comment: Speci men Type: BLOOD SPECIMENOrdering Facility: [facility] Address: [address] [place] [address] Result Comment: No s erological evidence of past exposure to hepatitis A virus or hepatitis A vaccination. Should recent infection be suspected, repeat testing is suggested 3-4 weeks after this draw. Performed By: #### 3 1201-7, 53579-0, AHAVG, 5195-3, 70550-4 ####[facility] LABCLIA [id number] [address] [address] [place] Performed By: #### 7 3752-8, AHAVG, STRSER, MUMPSG ####[facility] LABCLIA [id number] [address] [place] [address] [place] HIV 1+2 Ab IA Qlon 5 HIV 1 and 2 Ab IA.rapid Nom (S/P/Bld) Normal [facility] Comment on above: Order Comment: Speci men Type: BLOOD SPECIMENOrdering Facility: [facility] Address: [address] [place] [address] Result Comment: Test not indicated. Performed By: #### 3 1201-7, 46114-1, AHAVG, 5-3, 00400-7 ####[facility] LABIA [id number] [address] [address] [place] HIV 1+2 Ab+HIV1 p24 Ag IA Ql Non-Reactive Normal Nonreactive [facility] Comment on above: Order Comment: Speci men Type: BLOOD SPECIMENOrdering Facility: [facility] Address: [address] [place] [address] Performed By: #### 3 1201-7, 04844-8, AHAVG, 5195-3, 06449-8 ####[facility] LABIA [id number] [address] [place] [address] [place] HIV immunoassay testing algorithm interpretation (S/P/Bld) [Interp] Normal [facility] Comment on above: Order Comment: Speci men Type: BLOOD SPECIMENOrdering Facility: [facility] Address: [address] [place] [address] Result Comment: No e vidence of HIV-1 or HIV-2 infection. Should recent infection be suspected, repeat testing may be considered 2-3 weeks after this draw.[place] Rev. Code 3701.243(E): This information has been [...] or diagnoses. Performed By: #### 3 1201-7, 53177-0, AHAVG, 5195-3, 40028-5 ####[facility] LABIA [id number] [address] [address] [place] Hepatic function 2000 panelo n 11-13-2024 Albumin [Mass/Vol] 2.8 g/dL Low 3.9-4.9 [facility] Comment on above: Order Comment: Speci men Type: BLOOD SPECIMENOrdering Facility: [facility] Address: [address] [place] [address] Performed By: #### 2 4321-2, 67777-5, 28502-3, 10900-8 ####[facility] LABIA [id number] [place] [address] [place] ALP [Catalytic activity/Vol] 225 U/L High 38-113 [facility] Comment on above: Order Comment: Speci men Type: BLOOD SPECIMENOrdering Facility: [facility] Address: [address] [place] [address] Performed By: #### 2 4321-2, 84841-0, 08424-7, 37592-8 ####[facility] LABIA [id number] [address] [address] [place] ALT [Catalytic activity/Vol] 22 U/L Normal 10-54 [facility] Comment on above: Order Comment: Speci men Type: BLOOD SPECIMENOrdering Facility: [facility] Address: [address] [place] [address] Performed By: #### 2 4321-2, 55153-3, 38629-6, 49523-6 ####[facility] LABCLIA [id number] [facility] [address] [address] [place] AST [Catalytic activity/Vol] 36 U/L Normal 14-40 [facility] Comment on above: Order Comment: Speci men Type: BLOOD SPECIMENOrdering Facility: [facility] Address: [address] [place] [address] Performed By: #### 2 4321-2, 91487-0, 12827-7, 98300-9 ####[facility] LABIA [id number] [address] [address] [place] Bilirubin [Mass/Vol] 1.8 mg/dL High 0.2-1.[address] [facility] Comment on above: Order Comment: Speci men Type: BLOOD SPECIMENOrdering Facility: [facility] Address: [address] [place] [address] Performed By: #### 2 4321-2, 27177-5, 24617-1, 35050-3 ####[facility] LABIA [id number] [address] [address] [place] Bilirubin.conjugated [Mass/Vol] 0.9 mg/dL High <0.3 [facility] Comment on above: Order Comment: Speci men Type: BLOOD SPECIMENOrdering Facility: [facility] Address: [address] [place] [address] Performed By: #### 2 4321-2, 00709-5, 47305-4, 07564-7 ####[facility] LABIA [id number] [address] [address] [place] Protein [Mass/Vol] 5.2 g/dL Low 6.3-8.0 [facility] Comment on above: Order Comment: Speci men Type: BLOOD SPECIMENOrdering Facility: [facility] Address: [address] [place] [address] Performed By: #### 2 4321-2, 69938-8, 28030-8, 42209-6 ####[facility] LABCLIA [id number] [place] [address] [place] LIVER REC INIT W/Uon 025 ALLOGEN RESULTS TO FOLLOW See Allogen report to follow Normal [facility] Comment on above: Order Comment: Speci men Type: BLOOD SPECIMENOrdering Facility: [facility] Address: [address] [place] [address] Performed By: #### L RIPW ####[facility] [id number] [place] [address] [place] LPa SerPl-mCncon 11-13-2024 Lipoprotein a [Mass/Vol] mg/dL Normal <30 [facility] Comment on above: Order Comment: Speci men Type: BLOOD SPECIMENOrdering Facility: [facility] Address: [address] [place] [address] Performed By: #### 1 0835-7 ####[facility] LABIA [id number] [place] [address] [place] Lipid 1996 panelon 5 Cholesterol [Mass/Vol] 52 mg/dL Normal <200 [facility] Comment on above: Order Comment: Speci men Type: BLOOD SPECIMENOrdering Facility: [facility] Address: [address] [place] [address] Result Comment: <200 mg/dL, Desirable 200-239 mg/dL, Borderline high>239 mg/dL, High Performed By: #### 2 4321-2, 76246-4, 29100-0, 73164-0 ####[facility] LABIA [id number] [place] [address] [place] Cholesterol in HDL [Mass/Vol] 17 mg/dL Low >39 [facility] Comment on above: Order Comment: Speci men Type: BLOOD SPECIMENOrdering Facility: [facility] Address: [address] [place] [address] Result Comment: 40-5 9 mg/dL, Acceptable>59 mg/dL, High: Negative risk factor for coronary heart disease<40 mg/dL, Low: Positive risk factor for coronary heart disease Performed By: #### 2 4321-2, 50220-2, 73185-0, 70359-2 ####[facility] LABCLIA [id number] [facility] [address] [place] [address] [place] Cholesterol in LDL [Mass/Vol] 26 mg/dL Normal <100 [facility] Comment on above: Order Comment: Speci men Type: BLOOD SPECIMENOrdering Facility: [facility] Address: [address] [place] [address] Result Comment: <100 mg/dL, Optimal 100-129 mg/dL, Near optimal/above optimal 130-159 mg/dL, Borderline high 160-189 mg/dL, High>189 mg/dL, Very highSecondary prevention optimal LDL Cholesterol levels are recommended to be < 70 mg/dL Performed By: #### 2 4321-2, 74407-9, 57754-5, 09003-4 ####[facility] LABCLIA [id number] [address] [place] [address] [place] Cholesterol in LDL/Cholesterol in HDL [Mass ratio] 1.53 {ratio} Normal <2.54 [facility] Comment on above: Order Comment: Speci men Type: BLOOD SPECIMENOrdering Facility: [facility] Address: [address] [place] [address] Result Comment: Refe rence:1. National Cholesterol Education Program ATP III Guideline At-A-Glance Quick Desk Reference: National Heart, Lung, and Blood [place]. National Institutes of Health. 2001: NIH Publication No. 01-3305.2. An International Atherosclerosis Society position paper: global recommendations for the management of dyslipidemia: executive summary, Atherosclerosis. 2014: 232(2):410-413. Performed By: #### 2 4321-2, 11193-9, 14855-2, 99346-2 ####[facility] LABCLIA [id number] [address] [place] [address] [place] Cholesterol in VLDL [Mass/Vol] 9 mg/dL Normal <30 [facility] Comment on above: Order Comment: Speci men Type: BLOOD SPECIMENOrdering Facility: [facility] Address: [address] [place] [address] Performed By: #### 2 4321-2, 67505-0, 67072-4, 51985-3 ####[facility] LABCLIA [id number] [address] [address] [place] Cholesterol non HDL [Mass/Vol] 35 mg/dL Normal <130 [facility] Comment on above: Order Comment: Speci men Type: BLOOD SPECIMENOrdering Facility: [facility] Address: [address] [place] [address] Result Comment: <130 mg/dL, Optimal 130-159 mg/dL, Near optimal/above optimal 160-189 mg/dL, Borderline high 190-219 mg/dL, High>219 mg/dL, Very highSecondary prevention optimal non HDL Cholesterol levels are recommended to be <100 mg/dL Performed By: #### 2 4321-2, 33753-3, 97915-4, 85694-6 ####[facility] LABCLIA [id number] [address] [address] [place] Cholesterol.total/Donna sterol in HDL [Mass ratio] 3.06 {ratio} Normal <5.10 [facility] Comment on above: Order Comment: Speci men Type: BLOOD SPECIMENOrdering Facility: [facility] Address: [address] [place] [address] Performed By: #### 2 4321-2, 91903-1, 26540-4, 76842-1 ####[facility] LABCLIA [id number] [address] [address] [place] FASTING TIME [address] [facility] Comment on above: Order Comment: Speci men Type: BLOOD SPECIMENOrdering Facility: [facility] Address: [address] [place] [address] Performed By: #### 2 4321-2, 95335-1, 90615-3, 46039-8 ####[facility] LABCLIA [id number] [place] [address] [place] Triglyceride [Mass/Vol] 45 mg/dL Normal <150 C [facility] Comment on above: Order Comment: Speci [facility] Type: BLOOD SPECIMENOrdering Facility: [facility] Address: [address] [place] [address] Result Comment: <150 mg/dL, Normal 150-199 mg/dL, Borderline high 200-499 mg/dL, High>499 mg/dL, Very high Performed By: #### 2 4321-2, 52234-7, 25652-6, 49566-9 ####[facility] LABCLIA [id number] [address] [place] MUMPS IGG ABon 11-13-2024 MuV IgG Ql (S) Negative Abnormal Positive [facility] Comment on above: Order Comment: Speci [facility] Type: BLOOD SPECIMENOrdering Facility: [facility] Address: [address] [place] [address] Result Comment: The result suggests no history of Mumps vaccination or exposure to Mumps virus, however, some individuals with past history of Mumps vaccination may test negative using this test. Please correlate with past history of vaccination if applicable. Performed By: #### 7 3752-8, AHAVG, STRSER, MUMPSG ####[facility] LABCLIA [id number] [address] [place] [facility]BNP [facility]-13 Natriuretic peptide.B prohormone N-Terminal [Mass/Vol] 1047 pg/mL High <125 [facility] Comment on above: Order Comment: Speci [facility] Type: BLOOD SPECIMENOrdering Facility: [facility] Address: [address] [place] [address] Performed By: #### 2 4321-2, 54941-4, 33630-3, 40377-2 ####[facility] LABCLIA [id number] MARIIJazmine [facility] [id number] [place] [address] [place] NURSING PROGon 11-13-2024 [facility]SING [facility]OG [facility] Normal [facility] PHOSPHATIDYLETHANOL (PETH)on 11-13-2024 EER PETH See Note Normal [facility] Comment on above: Order Comment: Speci men Type: BLOOD SPECIMENOrdering Facility: [facility] Address: [address] [place] [address] Result Comment: Auth orized individuals can access the [employer] Enhanced Reportwith an [employer] Connect account using the following link.Your local lab can assist you in obtaining the patientreport if you don't have a Connect account.[email or web address] Performed By: #### P ETH ####[facility]IESCLIA [id number] [place] [address] PETH 16:0/18.2 (PLPETH) <10 Normal [facility] Comment on above: Order Comment: Speci men Type: BLOOD SPECIMENOrdering Facility: [facility] Address: [address] [place] [address] Result Comment: Refe rence ranges are not well established. Performed By: #### P ETH ####[facility]IESCLIA [id number] [place] [address] PETH 16:0/18:1 (POPETH) <10 Normal [facility] Comment on above: Order Comment: Speci men Type: BLOOD SPECIMENOrdering Facility: [facility] Address: [address] [place] [address] Result Comment: PEth 16:0/18:1 (POPEth)Less than 10 ng/mL............Not detectedLess than 20 ng/mL............Abstinence or light tvshrfjnniutdehcbq15 - 200 ng/mL................Moderate alcohol consumptionGreater than 200 ng/mL........Heavy alcohol consumption or chronicalcohol use(Reference: Alonso Landaverde and Mathew Ha 2018 J. Forensic Sci) Performed By: #### P ETH ####[facility]HC[facility]CarIA [id number] [place] [address] PETH INTERPRETATION See Comment Normal [facility] Comment on above: Order Comment: Speci men Type: BLOOD SPECIMENOrdering Facility: [facility] Address: [facility] [place] [address] Result Comment: Phos phatidylethanol (PEth) is a [...] was developed and its performance characteristicsdetermined by [facility]. It has not been cleared orapproved by the U.S. Food and Drug Administration. This test wasperformed in a CLIA-certified laboratory and is intended forclinical purposes.Performed By: [facility] [place], [place] [address]Kptzyvxvta Director: Lizandro Ordonez MD, PhDCLIA Number: [id number] Performed By: #### P ETH ####[facility]HC[facility]CarIA [id number] [place] [address] PT panel Coag (PPP)on 2024 INR Coag (PPP) [Relative time] 1.9 {INR} High 0.9-1.3 [facility] Comment on above: Order Comment: Spechelder ramirez Type: BLOOD SPECIMENOrdering Facility: [facility] Address: [address] [place] [address] Result Comment: Sarah min K Antagonist (VKA) Therapeutic Range: INR 2 to 3 (Target INR of 2.5)Note: For patients treated with VKA drugs, such as warfarin, the [employer] 2012 Guideline recommends [...] al. Chest 2012, 141:7S-47SNishimnicolle RA, et al. [facility] 2017, 70: 252-289 Performed By: #### 3 4528-0, 3255-7 ####[facility] LABIA [id number] [place] [address] [place] PT Coag (PPP) [Time] 19.9 s High 9.7-13.[address] [facility] Comment on above: Order Comment: Speci men Type: BLOOD SPECIMENOrdering Facility: [facility] Address: [address] [place] [address] Performed By: #### 3 4528-0, 3255-7 ####[facility] LABIA [id number] [place] [address] [place] Pathology biopsy report Marco Antonio (Tiss)on 11-13-[address] [facility] Comment on above: Order Comment: Ezekiel ramirez Type: TISSUE SPECIMENOrdering Facility: [facility] Address: [address] [place] [address] Result Comment: Shellie pugh Developed Test (LDT) Disclaimer:Performance characteristics of immunohistochemical, immunofluorescent, and chromogenic in-situ hybridization tests have been determined by the performing laboratory within [facility]'s Thai Torres Pathology and Laboratory Medicine Department ([facility], [facility], [facility], [facility], [facility], [facility], or [facility]) in a manner consistent with [...] Performed By: #### 6 6121-5 ####[facility]ORYCLIA [id number] [address] LABCLIA [id number] [address] [place] CASE REPORT Normal [facility] Comment on above: Order Comment: Speci men Type: TISSUE SPECIMENOrdering Facility: [facility] Address: [address] [place] [address] Result Comment: Surg ical Pathology Report Case: [id number] Provider: Thai Pineda MD Collected: 11/13/2024 09:40 AMOrdering Location: [place] [address] Received: 11/15/2024 03:18 PMPathologist: Axel Berger MDSpecimen: Esophagus, Biopsy, r/o esophageal candidiasis Performed By: #### 6 6121-5 ####[facility]ORATORYCLIA [id number] [address] LABCLIA [id number] [address] OF [facility] FINAL DIAGNOSIS Normal [facility] Comment on above: Order Comment: Speci men Type: TISSUE SPECIMENOrdering Facility: [facility] Address: [address] [place] [address] Result Comment: Ashly kaye, biopsy:- Squamous mucosal candidiasis.JEL 11/16/2024 at 1034 EDT Performed By: #### 6 6121-5 ####[facility] LABORATORYCLIA [id number] [address] LABCLIA [id number] [place] [address] [place] FINAL PERFORMING LAB Normal [facility] Comment on above: Order Comment: Speci men Type: TISSUE SPECIMENOrdering Facility: [facility] Address: [address] [place] [address] Result Comment: Diag nostic interpretation performed at: [facility], [address] [place] [address] CLIA# [id number] Director: Rick Harris MD Performed By: #### 6 6121-5 ####[facility] LABORATORYCLIA [id number] [address] LABCLIA [id number] [address] [place] GROSS DESCRIPTION Normal [facility] Comment on above: Order Comment: Speci men Type: TISSUE SPECIMENOrdering Facility: [facility] Address: [address] [place] [address] Result Comment: A. E sophagus, BiopsyReceived in formalin are multiple pieces of espitia, soft tissue aggregating to 0.9 x 0.2 x 0.2 cm. Totally submitted in one cassette.BC November 15, 2024 4:50 PMGross examination performed at [facility], [address] [place] [address] Performed By: #### 6 6121-5 ####[facility] LABORATORYCLIA [id number] [address] LABCLIA [id number] [place] [address] [place] Phosphate SerPl-mCncon 11-13 Phosphate [Mass/Vol] 1.5 mg/dL Low 2.7-4.[address] [facility] Comment on above: Order Comment: Speci men Type: BLOOD SPECIMENOrdering Facility: [facility] Address: [address] [place] [address] Performed By: #### 2 777-1, 3015-3 ####[facility] LABCLIA [id number] [place] [address] [place] RUBEOLA (MEASLES)IGGon 11-13 MEASLES IGG AB, QUAL Positive Normal Positive [facility] Comment on above: Order Comment: Speci men Type: BLOOD SPECIMENOrdering Facility: [facility] Address: [address] [place] [address] Result Comment: The result suggests recent or past exposure to Measles virus or Measles vaccination. The current test does not detect neutralizing antibodies. Positive result may also be seen due to presence of passively-transferred antibodies. Please correlate with patient's history. Performed By: #### 7 852-7, MEASLG, VZVG2, 1988-10 ####[facility] LABCLIA [id number] [place] [address] [place] Reagin and Treponema pallidu m IgG and IgM [Interp]on 11-13-2024 T. pallidum IgG+IgM IA Ql (S) Non-Reactive Normal Nonreactive [facility] Comment on above: Order Comment: Speci james Type: BLOOD SPECIMENOrdering Facility: [facility] Address: [address] [place] [address] Performed By: #### 7 3752-8, AHAVG, STRSER, MUMPSG ####[facility] LABCLIA [id number] [place] [address] [place] Reagin+T pallidum IgG+IgM Se rPl-Impon 11-13-2024 Reagin and Treponema pallidum IgG and IgM [Interp] Cannot exclude recent Treponemal infection if specimen collected within 7-10 days after appearance of suspect lesions or 2-3 weeks after an exposure. Clinical correlation is required. Normal [facility] Comment on above: Order Comment: Speci james Type: BLOOD SPECIMENOrdering Facility: [facility] Address: [address] [place] [address] Performed By: #### 7 3752-8, SHMUEL SORENSEN MUMPSG ####[facility] LABCLIA [id number] [place] [address] [place] STAPHYLOCOCCUS AUREUS AND MR SA SCREEN, PCR, NASALon 11-13-2024 S. aureus and MRSA panel ANANTH+probe (Nose) Not detected Normal Not Detected [facility] Comment on above: Order Comment: Ezekiel ramirez Type: SWABOrdering Facility: [facility] Address: [address] [place] [address] Performed By: #### S APCR ####[facility] LABCLIA [id number] [place] [address] [place] STRONGYLOIDES IGG BLon 11-13 STRONGYLOIDES IGG QUALITATIVE Negative Normal Negative [facility] Comment on above: Order Comment: Speci james Type: BLOOD SPECIMENOrdering Facility: [facility] Address: [address] [place] [address] Performed By: #### S TRSER ####[facility] LABCLIA [id number] [place] [address] [place] Performed By: #### 7 3752-8, SHMULE SORENSEN MUMPSG ####[facility] LABCLIA [id number] [place] [address] [place] T. gondii IgG Qn (S)on 11-13 TOXO IGG QUAL Negative Normal Negative [facility] Comment on above: Order Comment: Meggani james Type: BLOOD SPECIMENOrdering Facility: [facility] Address: [address] [place] [address] Result Comment: No s erological evidence of past exposure to Toxoplasma gondii. Cannot exclude recent infection if the specimen collected within 3-4 weeks after infection. Performed By: #### 8 039-0, 7885-7 ####[facility] LABCLIA [id number] [place] [address] [place] THERAPY NTon 11-13-[address] [facility] TOXICOLOGY PANEL BLDon 11-13 Acetaminophen [Mass/Vol] ug/mL Low 10-30 [facility] Comment on above: Order Comment: Ezekiel ramirez Type: BLOOD SPECIMENOrdering Facility: [facility] Address: [address] [place] [address] Result Comment: Toxi c > 150 ug/mL 4 hours post ingestionThe Viviana Figueroa nomogram can be used to estimate the probability of hepatotoxicity via the relationship of plasma acetaminophen concentration to the post ingestion interval. (Skylar. Pediatrics. 1975. 55:871 to 876 and Viviana et al. Arch Physical Therapy Teacher Med. 1981. 141:380 to 385).Reference ranges and high/low indicator flags are provided as general guidelines only. The treating physician must determine appropriate target levels/dosing based on the specific clinical situation. Performed By: #### T OXP ####[facility] LABCLIA [id number] [place] [address] [place] Ethanol [Mass/Vol] mg/dL Normal <11 [facility] Comment on above: Order Comment: Ezekiel ramirez Type: BLOOD SPECIMENOrdering Facility: [facility] Address: [address] [place] [address] Performed By: #### T OXP ####[facility] LABCLIA [id number] [place] [address] [place] Salicylates [Mass/Vol] mg/dL Low 3.0-30.0 [facility] Comment on above: Order Comment: Ezekiel ramirez Type: BLOOD SPECIMENOrdering Facility: [facility] Address: [address] [place] [address] Result Comment: The therapeutic range varies and has been reported to be 3.0 to 10.0 mg/dL for anti pyretic/analgesic conditions and 15.0 to 30.0 mg/dL for anti inflammatory/rheumatic fever conditions. Ranges published by the instrument watch guard gate.Reference ranges and high/low indicator flags are provided as general guidelines only. The treating physician must determine appropriate target levels/dosing based on the specific clinical situation. Performed By: #### T OXP ####[facility] LABCLIA [id number] [place] [address] [place] TSH SerPl-aCncon 11-13-2024 TSH Qn 0.633 m[IU]/L Normal 0.270-4.200 [facility] Comment on above: Order Comment: Spechelder ramirez Type: BLOOD SPECIMENOrdering Facility: [facility] Address: [address] [place] [address] Performed By: #### 2 777-1, 3016-3 ####[facility] LABCLIA [id number] [place] [address] [place] Upper GI endoscopyon 025 Upper GI endoscopy Normal [facility] VARICELLA ZOSTER IGGon 11-13 VARICELLA ZOSTER IGG, QUAL Positive Normal Positive [facility] Comment on above: Order Comment: Ezekiel ramirez Type: BLOOD SPECIMENOrdering Facility: [facility] Address: [address] [place] [address] Result Comment: The result suggests recent or past exposure to Varicella-Zoster virus or chickenpox vaccination or zoster vaccination. Positive result may also be seen due to presence of passively-transferred antibodies. Please correlate with patient's history. Performed By: #### 7 852-7, MEASLG, VZVG2, 1988-10 ####[facility] LABCLIA [id number] [place] [address] [place] Vit A SerPl-mCncon 5 Retinol [Mass/Vol] 0.03 mg/L Low 0.30-1.20 [facility] Comment on above: Order Comment: Ezekiel ramirez Type: BLOOD SPECIMENOrdering Facility: [facility] Address: [address] [place] [address] Result Comment: This test was developed, and [...] 923-1, 1823-4 ####[facility] LABIA [id number] [place] [address] [place] [facility] Zinc SerPl-mCncon 11-13-2024 Zinc [Mass/Vol] 60 ug/dL Normal 60-120 [facility] Comment on above: Order Comment: Speci men Type: BLOOD SPECIMENOrdering Facility: [facility] Address: [address] [place] [address] Result Comment: This test was developed, and [...] for research. Performed By: #### 5 763-8 ####[facility] LABIA [id number] [address] [place] AFP SerPl-mCncon 11-12-2024 AFP [Mass/Vol] 2.25 ng/mL Normal <9.00 [facility] Comment on above: Order Comment: Speci james Type: BLOOD SPECIMENOrdering Facility: [facility] Address: [address] [place] [address] Result Comment: The Alpha-Fetoprotein test was performed using the Fiordaliza Always Preppedel DxI immunoenzymatic assay. Results obtained with different assay methods or kits cannot be used interchangeably. Performed By: #### 1 834-1 ####[facility] LABCLIA [id number] [place] [address] [place] ARTERIAL BLOOD GASESon 11-12 Base deficit (BldA) [Moles/Vol] -8 mmol/L Low -2-0 [facility] Comment on above: Order Comment: Speci men Type: ARTERIAL BLOOD SPECIMENOrdering Facility: [facility] Address: [address] [place] [address] Performed By: #### A LLBG ####[facility] LABIA [id number] [place] [address] [place] Body temperature 98.6 [degF] Normal [facility] Comment on above: Order Comment: Speci men Type: ARTERIAL BLOOD SPECIMENOrdering Facility: [facility] Address: [address] [place] [address] Performed By: #### A LLBG ####[facility] LABCLIA [id number] [place] [address] [place] Calcium.ionized (Bld) [Mass/Vol] 1.20 mmol/L Normal 1.08-1.30 [facility] Comment on above: Order Comment: Speci men Type: ARTERIAL BLOOD SPECIMENOrdering Facility: [facility] Address: [address] [place] [address] Performed By: #### A LLBG ####[facility] LABIA [id number] [place] [address] [place] Calcium.ionized adjusted to pH 7.4 (BldA) [Moles/Vol] 1.24 mmol/L Normal 1.08-1.30 [facility] Comment on above: Order Comment: Speci men Type: ARTERIAL BLOOD SPECIMENOrdering Facility: [facility] Address: [address] [place] [address] Performed By: #### A LLBG ####[facility] LABCLIA [id number] [place] [address] [place] Carboxyhemoglobin (BldA) [Mass fraction] 2.0 % Normal 0.0-2.0 [facility] Comment on above: Order Comment: Speci men Type: ARTERIAL BLOOD SPECIMENOrdering Facility: [facility] Address: [address] [place] [address] Result Comment: Carb oxyhemoglobin Reference Range for Smokers: 2.0-8.0% Performed By: #### A LLBG ####[facility] LABCLIA [id number] [place] [address] [place] CO2 (Bld) [Partial pressure] 21 mm Hg Low 36-46 [facility] Comment on above: Order Comment: Speci men Type: ARTERIAL BLOOD SPECIMENOrdering Facility: [facility] Address: [address] [place] [address] Performed By: #### A LLBG ####[facility] LABCLIA [id number] [place] [address] [place] Glucose [Mass/Vol] 276 mg/dL High 60-105 [facility] Comment on above: Order Comment: Speci men Type: ARTERIAL BLOOD SPECIMENOrdering Facility: [facility] Address: [address] [place] [address] Performed By: #### A LLBG ####[facility] LABCLIA [id number] [place] [address] [place] HCO3 (Bld) [Moles/Vol] 15 mmol/L Low 22-26 [facility] Comment on above: Order Comment: Speci men Type: ARTERIAL BLOOD SPECIMENOrdering Facility: [facility] Address: [address] [place] [address] Performed By: #### A LLBG ####[facility] LABCLIA [id number] [place] [address] [place] Hematocrit (Bld) [Volume fraction] 22.4 % Low 39.0-51.0 [facility] Comment on above: Order Comment: Speci men Type: ARTERIAL BLOOD SPECIMENOrdering Facility: [facility] Address: [address] [place] [address] Performed By: #### A LLBG ####[facility] LABCLIA [id number] [address] [address] [place] Hemoglobin (Bld) [Mass/Vol] 7.2 g/dL Low 13.0-17.0 [facility] Comment on above: Order Comment: Speci men Type: ARTERIAL BLOOD SPECIMENOrdering Facility: [facility] Address: [address] [place] [address] Performed By: #### A LLBG ####[facility] LABIA [id number] [place] [address] [place] Lactate [Moles/Vol] 2.9 mmol/L High 0.5-2.2 [facility] Comment on above: Order Comment: Speci men Type: ARTERIAL BLOOD SPECIMENOrdering Facility: [facility] Address: [address] [place] [address] Performed By: #### A LLBG ####[facility] LABIA [id number] [place] [address] [place] Methemoglobin (Bld) [Mass fraction] 1.0 % Normal 0.0-1.5 [facility] Comment on above: Order Comment: Speci men Type: ARTERIAL BLOOD SPECIMENOrdering Facility: [facility] Address: [address] [place] [address] Performed By: #### A LLBG ####[facility] LABIA [id number] [place] [address] [place] O2 THERAPY RA=Room Air Normal [facility] Comment on above: Order Comment: Speci men Type: ARTERIAL BLOOD SPECIMENOrdering Facility: [facility] Address: [address] [place], [place] [address] Performed By: #### A LLBG ####[facility] LABCLIA [id number] [address] [address] [place] Oxygen (Bld) [Partial pressure] 94 mm Hg Normal 85-95 [facility] Comment on above: Order Comment: Speci men Type: ARTERIAL BLOOD SPECIMENOrdering Facility: [facility] Address: [address] [place] [address] Performed By: #### A LLBG ####[facility] LABCLIA [id number] [place] [address] [place] Oxyhemoglobin (BldA) [Mass fraction] 96 % Normal 95-98 [facility] Comment on above: Order Comment: Speci men Type: ARTERIAL BLOOD SPECIMENOrdering Facility: [facility] Address: [address] [place] [address] Performed By: #### A LLBG ####[facility] LABIA [id number] [place] [address] [place] pH (Bld) 7.46 [pH] High 7.35-7.45 [facility] Comment on above: Order Comment: Speci men Type: ARTERIAL BLOOD SPECIMENOrdering Facility: [facility] Address: [address] [place] [address] Performed By: #### A LLBG ####[facility] LABIA [id number] [place] [address] [place] PO2 / FIO2 RATIO 448 mmHg Normal >300 [facility] Comment on above: Order Comment: Speci men Type: ARTERIAL BLOOD SPECIMENOrdering Facility: [facility] Address: [address] [place] [address] Performed By: #### A LLBG ####[facility] LABCLIA [id number] [place] [id number] [place] Potassium [Moles/Vol] 3.9 mmol/L Normal 3.5-5.0 [facility] Comment on above: Order Comment: Speci men Type: ARTERIAL BLOOD SPECIMENOrdering Facility: [facility] Address: [address] [place] [address] Performed By: #### A LLBG ####[facility] LABIA [id number] [place] [address] [place] Sodium [Moles/Vol] 124 mmol/L Low 136-144 [facility] Comment on above: Order Comment: Speci men Type: ARTERIAL BLOOD SPECIMENOrdering Facility: [facility] Address: [address] [place] [address] Performed By: #### A LLBG ####[facility] LABCLIA [id number] [place] [address] [place] Bacteria Ur Culton Bacteria identified Cx Nom (U) Normal [facility] Comment on above: Performed By: #### 6 30-4, 35343-3 ####[facility] LABCLIA [id number] [place] [address] [place] Basic metabolic 2000 panelon 11-12-2024 Anion gap [Moles/Vol] 11 mmol/L Normal 8-15 [facility] Comment on above: Order Comment: Speci men Type: BLOOD SPECIMENOrdering Facility: [facility] Address: [address] [place] [address] Performed By: #### 2 4321-2, 90028-7, 2777-1 ####[facility] LABCLIA [id number] [place] [address] [place] Calcium [Mass/Vol] 9.2 mg/dL Normal 8.5-10.2 [facility] Comment on above: Order Comment: Speci men Type: BLOOD SPECIMENOrdering Facility: [facility] Address: [address] [place] [address] Performed By: #### 2 4321-2, 20651-0, 2777-1 ####[facility] LABCLIA [id number] [place] [id number] [place] Chloride [Moles/Vol] 99 mmol/L Normal 98-[address] [facility] Comment on above: Order Comment: Speci men Type: BLOOD SPECIMENOrdering Facility: [facility] Address: [address] [place] [address] Performed By: #### 2 4321-2, 75014-3, 2776-08 ####[facility] LABCLIA [id number] [place] [id number] [place] CO2 [Moles/Vol] 14 mmol/L Low 22-30 [facility] Comment on above: Order Comment: Speci men Type: BLOOD SPECIMENOrdering Facility: [facility] Address: [address] [place] [address] Performed By: #### 2 4321-2, 72768-2, 2776-08 ####[facility] LABCLIA [id number] [place] [address] [place] Creatinine [Mass/Vol] 1.22 mg/dL Normal 0.73-1.22 [facility] Comment on above: Order Comment: Speci men Type: BLOOD SPECIMENOrdering Facility: [facility] Address: [address] [place] [address] Performed By: #### 2 4321-2, 08747-9, 2776-08 ####[facility] LABIA [id number] [place] [address] [place] Creatinine and Glomerular filtration rate.predicted panel (S/P/Bld) 69 mL/min/1.73m??? Normal >=60 [facility] Comment on above: Order Comment: Speci men Type: BLOOD SPECIMENOrdering Facility: [facility] Address: [address] [place] [address] Result Comment: Patric mated Glomerular Filtration Rate [...] actual GFR. Performed By: #### 2 4321-2, 82682-3, 2776-1 ####[facility] LABCLIA [id number] [place] [id number] [place] Glucose [Mass/Vol] 304 mg/dL High 74-99 [facility] Comment on above: Order Comment: Speci men Type: BLOOD SPECIMENOrdering Facility: [facility] Address: [address] [place] [address] Result Comment: The [place] Diabetes Association (ADA) provides guidance for cutoff [...] Standards of Medical Care in Diabetes 2016, [place] [employer]. Diabetes Care. 2016.39(Suppl 1). Performed By: #### 2 4321-2, 47158-5, 2777- ####[facility] LABCLIA [id number] [place] [address] [place] Potassium [Moles/Vol] 4.3 mmol/L Normal 3.7-5.1 [facility] Comment on above: Order Comment: Speci men Type: BLOOD SPECIMENOrdering Facility: [facility] Address: [address] [place] [address] Performed By: #### 2 4321-2, 63940-3, 2777- ####[facility] LABCLIA [id number] [place] [id number] [place] Sodium [Moles/Vol] 124 mmol/L Low 136-144 [facility] Comment on above: Order Comment: Speci men Type: BLOOD SPECIMENOrdering Facility: [facility] Address: [address] [place] [address] Performed By: #### 2 4321-2, 99707-0, 2777-1 ####[facility] LABCLIA [id number] [address] [place] [address] [place] Urea nitrogen [Mass/Vol] 22 mg/dL Normal 9-24 [facility] Comment on above: Order Comment: Speci men Type: BLOOD SPECIMENOrdering Facility: [facility] Address: [address] [place] [address] Performed By: #### 2 4321-2, 42901-5, 2777-1 ####[facility] LABCLIA [id number] [address] [place] [address] [place] CASE MGT INIT ASSESon 2024 CASE MGT INIT ASSES Normal [facility] CBC panel Auto (Bld)on 11-12 Erythrocyte distribution width (RBC) [Ratio] 16.9 % High 11.5-15.0 [facility] Comment on above: Order Comment: Speci men Type: BLOOD SPECIMENOrdering Facility: [facility] Address: [address] [place] [address] Performed By: #### 5 8410-2 ####[facility] LABIA [id number] [place] [id number] [place] Hematocrit (Bld) [Volume fraction] 21.7 % Low 39.0-51.0 [facility] Comment on above: Order Comment: Speci men Type: BLOOD SPECIMENOrdering Facility: [facility] Address: [address] [place] [address] Performed By: #### 5 8410-2 ####[facility] LABCLIA [id number] [address] [address] [place] Hemoglobin (Bld) [Mass/Vol] 7.5 g/dL Low 13.0-17.0 [facility] Comment on above: Order Comment: Speci men Type: BLOOD SPECIMENOrdering Facility: [facility] Address: [address] [place] [address] Performed By: #### 5 8410-2 ####[facility] LABIA [id number] [place] [address] [place] MCH (RBC) [Entitic mass] 31.5 pg Normal 26.0-34.0 [facility] Comment on above: Order Comment: Speci men Type: BLOOD SPECIMENOrdering Facility: [facility] Address: [address] [place] [address] Performed By: #### 5 8410-2 ####[facility] [id number] [place] [address] [place] MCHC (RBC) [Mass/Vol] 34.6 g/dL Normal 30.5-36.0 [facility] Comment on above: Order Comment: Speci men Type: BLOOD SPECIMENOrdering Facility: [facility] Address: [address] [place] [address] Performed By: #### 5 8410-2 ####[facility] [id number] [address] [place] MCV (RBC) [Entitic vol] 91.2 fL Normal 80.0-100.0 [facility] Comment on above: Order Comment: Speci men Type: BLOOD SPECIMENOrdering Facility: [facility] Address: [address] [place] [address] Performed By: #### 5 8410-2 ####[facility] [id number] [place] [address] [place] Nucleated RBC (Bld) [#/Vol] 10*3/uL Normal <0.01 [facility] Comment on above: Order Comment: Speci men Type: BLOOD SPECIMENOrdering Facility: [facility] Address: [address] [place] [address] Performed By: #### 5 8410-2 ####[facility] [id number] [place] [address] [place] Platelet mean volume (Bld) [Entitic vol] 10.8 fL Normal 9.0-12.7 [facility] Comment on above: Order Comment: Speci men Type: BLOOD SPECIMENOrdering Facility: [facility] Address: [address] [place] [address] Performed By: #### 5 8410-2 ####[facility] LABCLIA [id number] [place] [address] [place] Platelets (Bld) [#/Vol] 31 10*3/uL Low 150-400 [facility] Comment on above: Order Comment: Speci men Type: BLOOD SPECIMENOrdering Facility: [facility] Address: [address] [place] [address] Result Comment: Resu lts checked and verified.No clot detected. Performed By: #### 5 8410-2 ####[facility] LABIA [id number] [place] [address] [place] RBC (Bld) [#/Vol] 2.38 10*6/uL Low 4.20-6.00 [facility] Comment on above: Order Comment: Speci men Type: BLOOD SPECIMENOrdering Facility: [facility] Address: [address] [place] [address] Performed By: #### 5 8410-2 ####[facility] LABIA [id number] [place] [address] [place] WBC (Bld) [#/Vol] 6.35 10*3/uL Normal 3.70-11.00 [facility] Comment on above: Order Comment: Speci men Type: BLOOD SPECIMENOrdering Facility: [facility] Address: [address] [place] [address] Performed By: #### 5 8410-2 ####[facility] LABCLIA [id number] [place] [address] [place] Erythrocyte distribution width (RBC) [Ratio] 17.3 % High 11.5-15.0 [facility] Comment on above: Order Comment: Speci men Type: BLOOD SPECIMENOrdering Facility: [facility] Address: [address] [place] [address] Performed By: #### 5 8410-2 ####[facility] LABIA [id number] [place] [address] [place] Hematocrit (Bld) [Volume fraction] 22.9 % Low 39.0-51.0 [facility] Comment on above: Order Comment: Speci men Type: BLOOD SPECIMENOrdering Facility: [facility] Address: [address] [place] [address] Performed By: #### 5 8410-2 ####[facility] LABIA [id number] [place] [address] [place] Hemoglobin (Bld) [Mass/Vol] 7.9 g/dL Low 13.0-17.0 [facility] Comment on above: Order Comment: Speci men Type: BLOOD SPECIMENOrdering Facility: [facility] Address: [address] [place] [address] Performed By: #### 5 8410-2 ####[facility] LABIA [id number] [place] [address] [place] MCH (RBC) [Entitic mass] 31.5 pg Normal 26.0-34.0 [facility] Comment on above: Order Comment: Speci men Type: BLOOD SPECIMENOrdering Facility: [facility] Address: [address] [place] [address] Performed By: #### 5 8410-2 ####[facility] LABIA [id number] [place] [address] [place] MCHC (RBC) [Mass/Vol] 34.5 g/dL Normal 30.5-36.0 [facility] Comment on above: Order Comment: Speci men Type: BLOOD SPECIMENOrdering Facility: [facility] Address: [address] [place] [address] Performed By: #### 5 8410-2 ####[facility] LABCLIA [id number] [place] [address] [place] MCV (RBC) [Entitic vol] 91.2 fL Normal 80.0-100.0 [facility] Comment on above: Order Comment: Speci men Type: BLOOD SPECIMENOrdering Facility: [facility] Address: [address] [place] [address] Performed By: #### 5 8410-2 ####[facility] LABIA [id number] [place] [address] [place] Nucleated RBC (Bld) [#/Vol] 10*3/uL Normal <0.01 [facility] Comment on above: Order Comment: Speci men Type: BLOOD SPECIMENOrdering Facility: [facility] Address: [address] [place] [address] Performed By: #### 5 8410-2 ####[facility] LABIA [id number] [place] [address] [place] Platelet mean volume (Bld) [Entitic vol] 11.6 fL Normal 9.0-12.7 [facility] Comment on above: Order Comment: Speci men Type: BLOOD SPECIMENOrdering Facility: [facility] Address: [address] [place] [address] Performed By: #### 5 8410-2 ####[facility] LABIA [id number] [place] [address] [place] Platelets (Bld) [#/Vol] 33 10*3/uL Low 150-400 [facility] Comment on above: Order Comment: Speci men Type: BLOOD SPECIMENOrdering Facility: [facility] Address: [address] [place] [address] Result Comment: Resu lts checked and verified.No clot detected. Performed By: #### 5 8410-2 ####[facility] LABCLIA [id number] [place] [address] [place] RBC (Bld) [#/Vol] 2.51 10*6/uL Low 4.20-6.00 [facility] Comment on above: Order Comment: Speci men Type: BLOOD SPECIMENOrdering Facility: [facility] Address: [address] [place] [address] Performed By: #### 5 8410-2 ####[facility] LABIA [id number] [place] [address] [place] WBC (Bld) [#/Vol] 7.27 10*3/uL Normal 3.70-11.00 [facility] Comment on above: Order Comment: Speci men Type: BLOOD SPECIMENOrdering Facility: [facility] Address: [address] [place] [address] Performed By: #### 5 8410-2 ####[facility] LABIA [id number] [place] [address] [place] CITRATED PLATELET COUNTon CITRATED PLATELET COUNT (WAM) 33 k/uL Low 150-400 [facility] Comment on above: Order Comment: Speci men Type: BLOOD SPECIMENOrdering Facility: [facility] Address: [address] [place] [address] Result Comment: Plat elet count confirmed by manual review of peripheral blood smear. No clot detected. Performed By: #### C ITPLT ####[facility] LABIA [id number] [place] [address] [place] CNCNPATEDon 11-12-[address] [facility] CNPNon 11-12-[address] [facility] CONFIRM BLOOD TYPEon [address] [facility] Comment on above: Order Comment: Speci men Type: BLOOD SPECIMENOrdering Facility: [facility] Address: [address] [place] [address] Performed By: #### C ONABO ####[facility] B[facility]OD BANKIA [id number] [place] [address] [place] Rh Nom (Bld) Positive Normal [facility] Comment on above: Order Comment: Speci men Type: BLOOD SPECIMENOrdering Facility: [facility] Address: [address] [place] [address] Performed By: #### C ONABO ####[facility] BANKCLIA [id number] [place] [address] [place] CONSULTon 11-12-[address] [facility] CONSULT Normal [facility] CONSULT Normal [facility] CONSULT Normal [facility] CONSULT Normal [facility] CONSULT Normal [facility] CT CHEST WO IVCONon 11-13-19 CT CHEST WO IVCON Normal [facility] D dimer FEU PPP-mCncon 11-12 Fibrin D-dimer FEU (PPP) [Mass/Vol] 3850 ng/mL FEU High <500 [facility] Comment on above: Order Comment: Speci men Type: BLOOD SPECIMENOrdering Facility: [facility] Address: [address] [place] [address] Performed By: #### 4 8065-7 ####[facility] LABIA [id number] [place] [address] [place] ECHO WITH AGITATED SALINE CO NTRASTon 11-12-2024 ECHO WITH AGITATED SALINE CONTRAST Normal [facility] Fibrin D-dimer FEU (PPP) [Ma ss/Vol]on 11-12-2024 D DIMER AGE-RELATED CUTOFF 580 ng/mL FEU Normal [facility] Comment on above: Order Comment: Speci men Type: BLOOD SPECIMENOrdering Facility: [facility] Address: [address] [place] [address] Performed By: #### 4 8065-7 ####[facility] LABCLIA [id number] [place] [address] [place] Hepatic function 2000 panelo n 11-12-2024 Albumin [Mass/Vol] 3.0 g/dL Low 3.9-4.9 [facility] Comment on above: Order Comment: Speci men Type: BLOOD SPECIMENOrdering Facility: [facility] Address: [address] [place] [address] Performed By: #### 2 4321-2, 45910-8, 2777-1 ####[facility] LABCLIA [id number] [facility] [place] [address] [place] ALP [Catalytic activity/Vol] 252 U/L High 38-113 [facility] Comment on above: Order Comment: Speci men Type: BLOOD SPECIMENOrdering Facility: [facility] Address: [address] [place] [address] Performed By: #### 2 4321-2, 64364-2, 277- ####[facility] LABCLIA [id number] [place] [address] [place] ALT [Catalytic activity/Vol] 24 U/L Normal 10-54 [facility] Comment on above: Order Comment: Speci men Type: BLOOD SPECIMENOrdering Facility: [facility] Address: [address] [place] [address] Performed By: #### 2 4321-2, 06564-1, 2776- ####[facility] LABCLIA [id number] [place] [id number] [place] AST [Catalytic activity/Vol] 41 U/L High 14-40 [facility] Comment on above: Order Comment: Speci men Type: BLOOD SPECIMENOrdering Facility: [facility] Address: [address] [place] [address] Performed By: #### 2 4321-2, 03233-5, 2776- ####[facility] LABCLIA [id number] [facility] [address] [place] [address] [place] Bilirubin [Mass/Vol] 1.8 mg/dL High 0.2-1.[address] [facility] Comment on above: Order Comment: Speci men Type: BLOOD SPECIMENOrdering Facility: [facility] Address: [address] [place] [address] Performed By: #### 2 4321-2, 32132-2, 2777- ####[facility] LABCLIA [id number] [place] [address] [place] Bilirubin.conjugated [Mass/Vol] 0.9 mg/dL High <0.3 [facility] Comment on above: Order Comment: Speci men Type: BLOOD SPECIMENOrdering Facility: [facility] Address: [address] [place] [address] Result Comment: Resu lts may be falsely decreased due to interference from hemolysis. Suggest reorder as clinically indicated. Performed By: #### 2 4321-2, 19815-1, 2777- ####[facility] LABCLIA [id number] [place] [address] [place] Protein [Mass/Vol] 5.5 g/dL Low 6.3-8.0 [facility] Comment on above: Order Comment: Speci men Type: BLOOD SPECIMENOrdering Facility: [facility] Address: [address] [place] [address] Performed By: #### 2 4321-2, 32632-9, 2777 ####[facility] LABCLIA [id number] [place] [address] [place] MEDICAL EMERon 11-12-[address] [facility] NURSING PROGon 11-12-[address] [facility] NURSING PROG Normal [facility] NURSING PROG Normal [facility] NURSING PROG Normal [facility] NUTRITIONon 11-12-[address] [facility] PTT, ANTICOAGULANT THERAPYon 11-12-2024 aPTT Coag (PPP) [Time] 62.6 s High 23.0-32.4 [facility] Comment on above: Order Comment: Speci men Type: BLOOD SPECIMENOrdering Facility: [facility] Address: [address] [place] [address] Performed By: #### P TTA ####[facility] LABCLIA [id number] [place] [address] [place] Phosphate SerPl-mCncon 11-12 Phosphate [Mass/Vol] 2.3 mg/dL Low 2.7-4.[address] [facility] Comment on above: Order Comment: Speci men Type: BLOOD SPECIMENOrdering Facility: [facility] Address: [address] [place] [address] Performed By: #### 2 4321-2, 73177-7, 2777-1 ####[facility] LABIA [id number] [address] [place] SOCIAL WORKon 11-12-[address] [facility] THERAPY NTon 11-12-[address] [facility] THERAPY NT Normal [facility] THROMBOGRAPH PANELon 025 Clot angle TEG (Bld) [Angle] 32.8 degrees Low 47.0-74.0 [facility] Comment on above: Order Comment: Speci men Type: BLOOD SPECIMENOrdering Facility: [facility] Address: [address] [place] [address] Performed By: #### T EGPNP ####[facility] LABIA [id number] [address] [place] Clot Lysis 30 Min post maximum clot amplitude TEG (Bld) [Length fraction] 0.0 % Normal 0.0-8.0 [facility] Comment on above: Order Comment: Speci men Type: BLOOD SPECIMENOrdering Facility: [facility] Address: [address] [place] [address] Performed By: #### T EGPNP ####[facility] LABIA [id number] [address] [place] Clotting time TEG (Bld) 5.0 minutes Normal 4.0-10.0 [facility] Comment on above: Order Comment: Speci men Type: BLOOD SPECIMENOrdering Facility: [facility] Address: [address] [place] [address] Performed By: #### T EGPNP ####[facility] LABIA [id number] [place] [address] [place] Coagulation index TEG Qn (Bld) -8.4 Low -4.6-3.2 [facility] Comment on above: Order Comment: Speci men Type: BLOOD SPECIMENOrdering Facility: [facility] Address: [address] [place] [address] Result Comment: This test was developed, and [...] for research. Performed By: #### T EGPNP ####[facility] LABIA [id number] [place] [address] [place] Maximum clot firmness TEG (Bld) [Length] 28.5 mm Low 51.0-75.0 [facility] Comment on above: Order Comment: Speci men Type: BLOOD SPECIMENOrdering Facility: [facility] Address: [address] [place] [address] Performed By: #### T EGPNP ####[facility] LABIA [id number] [place] [id number] [place] Thromboelastography after addtion of heparinase panel (Bld) Normal [facility] Comment on above: Order Comment: Speci men Type: BLOOD SPECIMENOrdering Facility: [facility] Address: [address] [place] [address] Result Comment: A th romboelastograph (TEG) study [...] timely manner. Performed By: #### T EGPNP ####[facility] LABCLIA [id number] [place] [address] [place] TOXICOLOGY SCREEN, ROUTINE U RINEon 11-12-2024 Amphetamines Confirm (U) [Mass/Vol] Negative Normal Negative [facility] Comment on above: Order Comment: Speci men Type: URINE SPECIMENOrdering Facility: [facility] Address: [address] [place] [address] Result Comment: Cuto ff threshold at 1000 ng/mL. Performed By: #### U TOX2 ####[facility] LABCLIA [id number] [place] [address] [place] BARBITURATES, URINE Negative Normal Negative [facility] Comment on above: Order Comment: Speci men Type: URINE SPECIMENOrdering Facility: [facility] Address: [address] [place] [address] Result Comment: Cuto ff threshold at 200 ng/mL. Performed By: #### U TOX2 ####[facility] LABCLIA [id number] [place] [address] [place] BENZODIAZEPINES, UR Negative Normal Negative [facility] Comment on above: Order Comment: Speci men Type: URINE SPECIMENOrdering Facility: [facility] Address: [address] [place] [address] Result Comment: Cuto ff threshold at 200 ng/mL. Performed By: #### U TOX2 ####[facility] LABCLIA [id number] [place] [address] [place] Cannabinoids Screen Ql (U) Negative Normal Negative [facility] Comment on above: Order Comment: Speci men Type: URINE SPECIMENOrdering Facility: [facility] Address: [address] [place] [address] Result Comment: Cuto ff threshold at 50 ng/mL. Performed By: #### U TOX2 ####[facility] LABCLIA [id number] [place] [address] [place] Cocaine Ql (U) Negative Normal Negative [facility] Comment on above: Order Comment: Speci men Type: URINE SPECIMENOrdering Facility: [facility] Address: [address] [place] [address] Result Comment: Cuto ff threshold at 300 ng/mL. Performed By: #### U TOX2 ####[facility] LABCLIA [id number] [place] [address] [place] Ethanol (U) [Mass/Vol] <11 Normal <11 [facility] Comment on above: Order Comment: Speci men Type: URINE SPECIMENOrdering Facility: [facility] Address: [address] [place] [address] Performed By: #### U TOX2 ####[facility] LABCLIA [id number] [place] [address] [place] Opiates Screen Ql (U) Negative Normal Negative [facility] Comment on above: Order Comment: Speci men Type: URINE SPECIMENOrdering Facility: [facility] Address: [address] [place] [address] Result Comment: Cuto ff threshold at 300 ng/mL. Performed By: #### U TOX2 ####[facility] LABCLIA [id number] [place] [address] [place] oxyCODONE cutoff Screen (U) [Mass/Vol] Positive Abnormal Negative [facility] Comment on above: Order Comment: Speci men Type: URINE SPECIMENOrdering Facility: [facility] Address: [address] [place] [address] Result Comment: Cuto ff threshold at 100 ng/mL. Performed By: #### U TOX2 ####[facility] LABCLIA [id number] [place] [address] [place] Phencyclidine Ql (U) Negative Normal Negative [facility] Comment on above: Order Comment: Speci men Type: URINE SPECIMENOrdering Facility: [facility] Address: [address] [place] [address] Result Comment: Cuto ff threshold at 25 ng/mL. Performed By: #### U TOX2 ####[facility] LABCLIA [id number] [place] [address] [place] TYPE + SCREENon 11-12-[address] [facility] Comment on above: Order Comment: Speci men Type: BLOOD SPECIMENOrdering Facility: [facility] Address: [address] [place] [address] Performed By: #### T SCR ####[facility] BLOOD BANKIA [id number] [place] [address] [place] Rh Nom (Bld) Positive Normal [facility] Comment on above: Order Comment: Speci men Type: BLOOD SPECIMENOrdering Facility: [facility] Address: [address] [place] [address] Performed By: #### T SCR ####[facility] BLOOD BANKIA [id number] [place] [address] [place] TYPE AND SCREEN EXPIRATION 11/15/2024 23:[address] [facility] Comment on above: Order Comment: Speci men Type: BLOOD SPECIMENOrdering Facility: [facility] Address: [address] [place] [address] Performed By: #### T SCR ####[facility] [id number] [place] [address] [place] Urinalysis complete panel (U )on 11-12-2024 BACTERIA UL 1553.[address] [facility] Comment on above: Order Comment: Speci men Type: URINE SPECIMENOrdering Facility: [facility] Address: [address] [place] [address] Performed By: #### 6 30-4, 17480-6 ####[facility] LABCLIA [id number] [place] [address] [place] Bilirubin Ql (U) 1+ Abnormal Negative [facility] Comment on above: Order Comment: Speci men Type: URINE SPECIMENOrdering Facility: [facility] Address: [address] [place] [address] Result Comment: Sugg est correlation with clinical findings and serum bilirubin if clinically indicated. Performed By: #### 6 30-4, 10881-1 ####[facility] LABCLIA [id number] [place] [address] [place] Clarity (Unsp spec) Cloudy Abnormal Clear [facility] Comment on above: Order Comment: Speci men Type: URINE SPECIMENOrdering Facility: [facility] Address: [address] [place] [address] Performed By: #### 6 30-4, 14035-3 ####[facility] LABCLIA [id number] [place] [address] [place] Color (U) [place] Abnormal Yellow [facility] Comment on above: Order Comment: Speci men Type: URINE SPECIMENOrdering Facility: [facility] Address: [address] [place] [address] Performed By: #### 6 30-4, 71971-7 ####[facility] LABCLIA [id number] [address] [place] [address] [facility] [place] Epithelial cells LM.HPF (Urine sed) [#/Area] None Seen Normal [facility] Comment on above: Order Comment: Speci men Type: URINE SPECIMENOrdering Facility: [facility] Address: [address] [place] [address] Performed By: #### 6 30-4, 95671-8 ####[facility] LABCLIA [id number] [address], [facility]95 [place] Glucose Test strip (U) [Mass/Vol] Negative Normal Negative [facility] Comment on above: Order Comment: Speci men Type: URINE SPECIMENOrdering Facility: [facility] Address: [address] [place] [address] Performed By: #### 6 30-4, 22126-7 ####[facility] LABCLIA [id number] [place] [address] [place] Hemoglobin Ql (U) 3+ Abnormal Negative [facility] Comment on above: Order Comment: Speci men Type: URINE SPECIMENOrdering Facility: [facility] Address: [address] [place] [address] Performed By: #### 6 30-4, 82092-4 ####[facility] LABCLIA [id number] [address], [facility]95 [place] Hyaline casts (Urine sed) [#/Area] 0 /[LPF] Normal 0 /LPF [facility] Comment on above: Order Comment: Speci men Type: URINE SPECIMENOrdering Facility: [facility] Address: [address] [place] [address] Performed By: #### 6 30-4, 33570-3 ####[facility] LABCLIA [id number] [address], [facility]95 [place] Ketones Ql (U) Negative Normal Negative [facility] Comment on above: Order Comment: Speci men Type: URINE SPECIMENOrdering Facility: [facility] Address: [address] [place], [place] [address] Performed By: #### 6 30-4, 40497-1 ####[facility] LABCLIA [id number] [address] [place] [address] [place] Leukocyte esterase Test strip Ql (U) 2+ Abnormal Negative [facility] Comment on above: Order Comment: Speci men Type: URINE SPECIMENOrdering Facility: [facility] Address: [address] [place] [address] Performed By: #### 6 30-4, 98428-6 ####[facility] LABCLIA [id number] [address], [facility]95 [place] Nitrite Ql (U) Negative Normal Negative [facility] Comment on above: Order Comment: Speci men Type: URINE SPECIMENOrdering Facility: [facility] Address: [address] [place] [address] Performed By: #### 6 30-, 14989-0 ####[facility] LABCLIA [id number] [address], [facility]95 [place] pH (U) 6.0 [pH] Normal <8.5 [facility] Comment on above: Order Comment: Speci men Type: URINE SPECIMENOrdering Facility: [facility] Address: [address] [place] [address] Performed By: #### 6 30-4, 97345-5 ####[facility] LABCLIA [id number] [address] [place] [address] [place] Protein (U) [Mass/Vol] 3+ Abnormal Negative Cl [facility] Comment on above: Order Comment: Speci men Type: URINE SPECIMENOrdering Facility: [facility] Address: [address] [place] [address] Performed By: #### 6 30-4, 56898-5 ####[facility] LABCLIA [id number] [address] [place] [address] [place] RBC LM.HPF (Urine sed) [#/Area] /[HPF] Abnormal 0-2 /HPF [facility] Comment on above: Order Comment: Speci men Type: URINE SPECIMENOrdering Facility: [facility] Address: [address] [place] [address] Performed By: #### 6 30-4, 42359-2 ####[facility] LABIA [id number] [place] [address] [place] Specific gravity (U) [Rel density] 1.019 Normal 1.005-1.030 [facility] Comment on above: Order Comment: Speci men Type: URINE SPECIMENOrdering Facility: [facility] Address: [address] [place] [address] Performed By: #### 6 30-4, 48280-6 ####[facility] LABIA [id number] [place] [address] [place] Urobilinogen Ql (U) 0.2 EU/dL Normal 0.2-1.0 EU/dL [facility] Comment on above: Order Comment: Speci men Type: URINE SPECIMENOrdering Facility: [facility] Address: [address] [place] [address] Performed By: #### 6 30-4, 19435-1 ####[facility] LABIA [id number] [place] [address] [place] WBC LM.HPF (Urine sed) [#/Area] /[HPF] Abnormal 0-5 /HPF [facility] Comment on above: Order Comment: Speci men Type: URINE SPECIMENOrdering Facility: [facility] Address: [address] [place] [address] Performed By: #### 6 30-4, 45550-3 ####[facility] LABCLIA [id number] [place] [address] [place] ALLIED HEALTHon 11-11-[address] [facility] ALLIED [facility] Normal [facility] ANTI PLT FACTOR 4 ABon 11-11 Heparin induced platelet IgG Marco Antonio (S) [Interp] Negative Normal Negative [facility] Comment on above: Order Comment: Ezekiel ramirez Type: BLOOD SPECIMENOrdering Facility: [facility] Address: [address] [place] [address] Result Comment: No a nti-platelet factor 4 IgG antibody is detected by ANDERS assay.Heparin-induced thrombocytopenia (HIT) is unlikely, but should be excluded based on clinical factors. Performed By: #### P LATF4 ####[facility] LABIA [id number] [place] [address] [place] Platelet factor 4 Qn (PPP) 0.184 OD Normal <0.400 [facility] Comment on above: Order Comment: Ezekiel ramirez Type: BLOOD SPECIMENOrdering Facility: [facility] Address: [address] [place] [address] Result Comment: Not calculated Performed By: #### P LATF4 ####[facility] [id number] [place] [address] [place] Albumin Fld-mCncon Albumin (Body fld) [Mass/Vol] <0.[address] [facility] Comment on above: Order Comment: Ezekiel ramirez Type: FLUID SPECIMENOrdering Facility: [facility] Address: [address] [place] [address] Result Comment: Body Fluid Albumin may be [...] document C49A. PAULETTE Diaz: Clinical Laboratory Standards [place]: 2007.2. Aym JACKSON. Serum to ascites albumin gradient. UpToDate. [...] research. Performed By: #### 1 747-5, 1795-4, 01051-9, 2881-1 ####[facility] LABCLIA [id number] [place] [address] [place] Fluid Nom (Body fld) Abdomen Normal [facility] Comment on above: Order Comment: Speci men Type: FLUID SPECIMENOrdering Facility: [facility] Address: [address] [place] [address] Performed By: #### 1 747-5, 1795-4, 84615-0, 2881-1 ####[facility] LABCLIA [id number] [place] [address] [place] Amylase Fld-cCncon 5 Amylase (Body fld) [Catalytic activity/Vol] 14 U/L Normal See Comment [facility] Comment on above: Order Comment: Speci [facility] Type: FLUID SPECIMENOrdering Facility: [facility] Address: [address] [place] [address] Result Comment: PLEU RAL FLUIDS:Amylase measurement in [...] document C49-A. PAULETTE Diaz: Clinical Laboratory Standards [place]; 2007.3. Kelby CONCEPCION, John BRAR, Star DJ. Use of cyst fluid CEA, CA19-9, and amylase for evaluation of pancreatic lesions. Clinical Biochemistry. 2009;42:7309-9226.This test was developed, and its performance characteristics [...] research. Performed By: #### 1 747-5, 1795-4, 70214-8, 2881-1 ####[facility] LABCLIA [id number] [place] [address] [place] Antithrombin Ag actual/philly l IA (PPP) [Relative mass conc]on 11-11-2024 Antithrombin Ag IA Qn (PPP) 32 % Low 80-120 [facility] Comment on above: Order Comment: Speci men Type: BLOOD SPECIMENOrdering Facility: [facility] Address: [address] [place] [address] Performed By: #### L [id number], HCOAG, 6303-2, 38276-6, 48980-1 ####[facility] LABCLIA [id number] [place] [address] [place] BODY FLUID CELL COUNTon 11-02 Clarity (Unsp spec) Clear Normal Clear [facility] Comment on above: Order Comment: Speci men Type: FLUID SPECIMENOrdering Facility: [facility] Address: [address] [place] [address] Performed By: #### C CBF, [id number] ####[facility] LABCLIA [id number] [address], [place] [address] [place] Color (Body fld) Colorless Normal Yellow [facility] Comment on above: Order Comment: Speci men Type: FLUID SPECIMENOrdering Facility: [facility] Address: [address] [place] [address] Performed By: #### C CBF, [id number] ####[facility] LABCLIA [id number] [place] [address] [place] RBC Manual cnt (Body fld) [#/Vol] 2000 /uL High <2000 [facility] Comment on above: Order Comment: Speci men Type: FLUID SPECIMENOrdering Facility: [facility] Address: [address] [place] [address] Performed By: #### C CBF, [id number] ####[facility] LABCLIA [id number] [place] [address] [place] Specimen source Nom (Body fld) Abdomen Normal [facility] Comment on above: Order Comment: Speci men Type: FLUID SPECIMENOrdering Facility: [facility] Address: [address] [place] [address] Performed By: #### C CBF, [id number] ####[facility] LABCLIA [id number] [facility] [place] [id number] [place] WBC Manual cnt (Body fld) [#/Vol] 70 /uL Normal <1000 [facility] Comment on above: Order Comment: Speci men Type: FLUID SPECIMENOrdering Facility: [facility] Address: [address] [place] [address] Performed By: #### C CBF, [id number] ####[facility] LABCLIA [id number] [address], [facility]95 [place] Bacteria Bld Culton 11-12-19 25 Bacteria identified Cx Nom (Bld) CULTURE, BLOOD: No growth 5 days GRAM STAIN: This blood culture had less than the recommended 8 ml per bottle, which could decrease the sensitivity of the test. Normal [facility] Comment on above: Performed By: #### 6 00-7 ####[facility] LABCLIA [id number] [place] [address] [place] Bacteria identified Cx Nom (Bld) CULTURE, BLOOD: No growth [address] [facility] Comment on above: Performed By: #### 6 00-7 ####[facility] LABCLIA [id number] [address] [place] Bacteria Fld Culton 11-12-19 25 Bacteria identified Cx Nom (Body fld) CULTURE, BODY FLD: No growth GRAM STAIN: No organisms seen Many Polymorphonuclear leukocytes Gram stain performed on cytospun specimen. Gram stain from primary specimen Normal [facility] Comment on above: Performed By: #### 6 35-3, 611-4 ####[facility] LABIA [id number] [place] [address] [place] Bacteria Spec Anaerobe Culto n 11-11-2024 Bacteria identified Anaer cx Nom (Unsp spec) Negative Normal [facility] Comment on above: Performed By: #### 6 35-3, 611-4 ####[facility] LABCLIA [id number] [address] [address] [place] Basic metabolic 2000 panelon 11-11-2024 Anion gap [Moles/Vol] 12 mmol/L Normal 8-15 [facility] Comment on above: Order Comment: Speci men Type: BLOOD SPECIMENOrdering Facility: [facility] Address: [address] [place] [address] Performed By: #### 2 276-4, 00027-3, 77116-9, 96810-3, 2777-1, 48806-6 ####[facility] LABCLIA [id number] [facility] [address] [place] [address] [place] Calcium [Mass/Vol] 9.1 mg/dL Normal 8.5-10.2 [facility] Comment on above: Order Comment: Speci men Type: BLOOD SPECIMENOrdering Facility: [facility] Address: [address] [place], [place] [address] Performed By: #### 2 276-4, 49160-8, 12050-8, 20050-3, 2777-1, 59449-8 ####[facility] LABCLIA [id number] [address] [place] [address] [place] Chloride [Moles/Vol] 97 mmol/L Low 98-[address] [facility] Comment on above: Order Comment: Speci men Type: BLOOD SPECIMENOrdering Facility: [facility] Address: [address] [place] [address] Performed By: #### 2 276-4, 03335-2, 80242-8, 65439-6, 2777-1, 89430-0 ####[facility] LABCLIA [id number] [address] [address] [place] CO2 [Moles/Vol] 14 mmol/L Low 22-30 [facility] Comment on above: Order Comment: Speci men Type: BLOOD SPECIMENOrdering Facility: [facility] Address: [address] [place], [place] [address] Performed By: #### 2 276-4, 63432-9, 79779-7, 66017-5, 7-1, 38841-0 ####[facility] LABCLIA [id number] [address] [address] [place] Creatinine [Mass/Vol] 1.35 mg/dL High 0.73-1.22 [facility] Comment on above: Order Comment: Speci men Type: BLOOD SPECIMENOrdering Facility: [facility] Address: [address] [place], [place] [address] Performed By: #### 2 276-4, 20599-4, 80833-3, 15059-5, 2777-1, 98446-8 ####[facility] [id number] [place] [address] [place] Creatinine and Glomerular filtration rate.predicted panel (S/P/Bld) 61 mL/min/1.73m??? Normal >=60 [facility] Comment on above: Order Comment: Ezekiel ramirez Type: BLOOD SPECIMENOrdering Facility: [facility] Address: [address] [place] [address] Result Comment: Patric mated Glomerular Filtration Rate [...] actual GFR. Performed By: #### 2 276-4, 59108-9, 66388-8, 30893-0, 2777-1, 28351-7 ####[facility] LABIA [id number] [address] [address] [place] Glucose [Mass/Vol] 292 mg/dL High 74-99 [facility] Comment on above: Order Comment: Ezekiel ramirez Type: BLOOD SPECIMENOrdering Facility: [facility] Address: [address] [place] [address] Result Comment: The [place] Diabetes Association (ADA) provides guidance for cutoff [...] Standards of Medical Care in Diabetes 2016, [place] Diabetes Association. Diabetes Care. 2016.39(Suppl 1). Performed By: #### 2 276-4, 43379-6, 19889-7, 23508-2, 2776-1, ####[facility] LABCLIA [id number] [facility] [address] [place] [address] [place] Potassium [Moles/Vol] 3.6 mmol/L Low 3.7-5.1 [facility] Comment on above: Order Comment: Speci men Type: BLOOD SPECIMENOrdering Facility: [facility] Address: [address] [place], [place] [address] Performed By: #### 2 276-4, 77568-8, 89829-3, 86297-8, 2776-1, ####[facility] LABCLIA [id number] [facility] [address] [place] [address] [place] Sodium [Moles/Vol] 123 mmol/L Low 136-144 [facility] Comment on above: Order Comment: Speci men Type: BLOOD SPECIMENOrdering Facility: [facility] Address: [address] [place] [address] Performed By: #### 2 276-4, 47927-4, 51506-0, 15550-5, 2776-, ####[facility] LABCLIA [id number] [address] [place] [address] [place] Urea nitrogen [Mass/Vol] 22 mg/dL Normal 9-24 [facility] Comment on above: Order Comment: Speci men Type: BLOOD SPECIMENOrdering Facility: [facility] Address: [address] [place] [address] Performed By: #### 2 276-4, 77413-7, 96053-7, 79378-8, 2776-1, ####[facility] LABCLIA [id number] [address] [address] [place] CARDIOLIPIN IGG ABSon 2024 Cardiolipin IgG IA Qn (S) <9.0 Normal <15.0 [facility] Comment on above: Order Comment: Ezekiel ramirez Type: BLOOD SPECIMENOrdering Facility: [facility] Address: [address] [place] [address] Result Comment: <15 GPL [id number] GPL Indeterminate>20 GPL PositiveThe following results were obtained with the [employer] QUANTA Lite TEZ IgG III ANDERS. Cardiolipin IgG values obtained with the different manufacturers' assay methods may not be used interchangeably. The magnitude of the reported IgG levels cannot be correlated to an endpoint titer. Performed By: #### 5 076-5KATHI CARDIM ####[facility] LABIA [id number] [address] [place] CARDIOLIPIN IGM ABSon 2024 Cardiolipin IgM IA Qn (S) <9.0 Normal <12.5 [facility] Comment on above: Order Comment: zEekiel ramirez Type: BLOOD SPECIMENOrdering Facility: [facility] Address: [address] [place] [address] Result Comment: <12. 5 MPL Aoknhjrv29.5-20 MPL Indeterminate>20 MPL PositiveThe following results were obtained with the [employer] QUANTA Lite TEZ IgM III ANDERS. Cardiolipin IgM values obtained with the different manufacturers' assay methods may not be used interchangeably. The magnitude of the reported IgM levels cannot be correlated to an endpoint titer.??? Performed By: #### 5 076-5KATHI CARDIM ####[facility] LABIA [id number] [place] [address] [place] CASE MANAGEMon 11-11-[address] [facility] CBC W Auto Differential pane l (Bld)on 11-11-2024 Basophils (Bld) [#/Vol] 0.04 10*3/uL Normal <0.11 [facility] Comment on above: Order Comment: Ezekiel james Type: BLOOD SPECIMENOrdering Facility: [facility] Address: [address] [place] [address] Performed By: #### I PFR, 53474-0, 92528-5 ####[facility] LABCLIA [id number] [place] [address] [place] Basophils/100 WBC (Bld) 0.4 % Normal [facility] Comment on above: Order Comment: Speci men Type: BLOOD SPECIMENOrdering Facility: [facility] Address: [address] [place] [address] Performed By: #### I PFR, 25577-5, ####[facility] LABCLIA [id number] [place] [address] [place] Differential cell count method Nom (Bld) Auto Normal [facility] Comment on above: Order Comment: Speci men Type: BLOOD SPECIMENOrdering Facility: [facility] [facility] Address: [address] [place] [address] Performed By: #### I PFR, 14400-3, ####[facility] LABCLIA [id number] [place] [address] [place] Eosinophils (Bld) [#/Vol] 0.35 10*3/uL Normal <0.46 [facility] Comment on above: Order Comment: Speci men Type: BLOOD SPECIMENOrdering Facility: [facility] Address: [address] [place] [address] Performed By: #### I PFR, 27489-3, ####[facility] LABCLIA [id number] [place] [id number] [place] Eosinophils/100 WBC (Bld) 3.4 % Normal [facility] Comment on above: Order Comment: Speci men Type: BLOOD SPECIMENOrdering Facility: [facility] Address: [address] [place] [address] Performed By: #### I PFR, 84306-2, 18001-7 ####[facility] LABCLIA [id number] [place] [address] [place] Erythrocyte distribution width (RBC) [Ratio] 17.4 % High 11.5-15.0 [facility] Comment on above: Order Comment: Speci men Type: BLOOD SPECIMENOrdering Facility: [facility] Address: [address] [place] [address] Performed By: #### I PFR, 22879-7, 75005-0 ####[facility] LABCLIA [id number] [place] [address] [place] Hematocrit (Bld) [Volume fraction] 24.6 % Low 39.0-51.0 [facility] Comment on above: Order Comment: Speci men Type: BLOOD SPECIMENOrdering Facility: [facility] Address: [address] [place] [address] Performed By: #### I PFR, 26679-1, 10320-6 ####[facility] LABCLIA [id number] [place] [address] [place] Hemoglobin (Bld) [Mass/Vol] 8.4 g/dL Low 13.0-17.0 [facility] Comment on above: Order Comment: Speci men Type: BLOOD SPECIMENOrdering Facility: [facility] Address: [address] [place] [address] Performed By: #### I PFR, 30535-7, 46683-5 ####[facility] LABCLIA [id number] [place] [address] [place] Immature granulocytes (Bld) [#/Vol] 0.08 10*3/uL Normal <0.10 [facility] Comment on above: Order Comment: Speci men Type: BLOOD SPECIMENOrdering Facility: [facility] Address: [address] [place] [address] Performed By: #### I PFR, 00416-4, 77640-6 ####[facility] LABCLIA [id number] [address] [place] Immature granulocytes/100 WBC (Bld) 0.8 % Normal [facility] Comment on above: Order Comment: Speci men Type: BLOOD SPECIMENOrdering Facility: [facility] Address: [address] [place] [address] Performed By: #### I PFR, 63196-3, 54498-5 ####[facility] LABCLIA [id number] [place] [address] [place] Lymphocytes (Bld) [#/Vol] 0.99 10*3/uL Low 1.00-4.00 [facility] Comment on above: Order Comment: Speci men Type: BLOOD SPECIMENOrdering Facility: [facility] Address: [address] [place] [address] Performed By: #### I PFR, 13488-4, 31688-3 ####[facility] LABCLIA [id number] [address] STATES OF [facility] Lymphocytes/100 WBC (Bld) 9.5 % Normal [facility] Comment on above: Order Comment: Speci men Type: BLOOD SPECIMENOrdering Facility: [facility] Address: [address] [place] [address] Performed By: #### I PFR, 00404-9, 74243-8 ####[facility] LABIA [id number] [place] [address] [place] MCH (RBC) [Entitic mass] 31.9 pg Normal 26.0-34.0 [facility] Comment on above: Order Comment: Speci men Type: BLOOD SPECIMENOrdering Facility: [facility] Address: [address] [place] [address] Performed By: #### I PFR, 25163-5, 47695-6 ####[facility] LABCLIA [id number] [place] [address] [place] MCHC (RBC) [Mass/Vol] 34.1 g/dL Normal 30.5-36.0 [facility] Comment on above: Order Comment: Speci men Type: BLOOD SPECIMENOrdering Facility: [facility] Address: [address] [place] [address] Performed By: #### I PFR, 58991-8, 61030-8 ####[facility] LABCLIA [id number] [place] [address] [place] MCV (RBC) [Entitic vol] 93.5 fL Normal 80.0-100.0 [facility] Comment on above: Order Comment: Speci men Type: BLOOD SPECIMENOrdering Facility: [facility] Address: [address] [place] [address] Performed By: #### I PFR, 28241-8, ####[facility] LABCLIA [id number] [place] [address] [place] Monocytes (Bld) [#/Vol] 0.97 10*3/uL High <0.87 [facility] Comment on above: Order Comment: Speci men Type: BLOOD SPECIMENOrdering Facility: [facility] Address: [address] [place] [address] Performed By: #### I PFR, 14246-7, ####[facility] LABIA [id number] [place] [address] [place] Monocytes/100 WBC (Bld) 9.3 % Normal [facility] Comment on above: Order Comment: Speci men Type: BLOOD SPECIMENOrdering Facility: [facility] Address: [address] [place] [address] Performed By: #### I PFR, 02317-4, ####[facility] LABCLIA [id number] [place] [address] [place] Neutrophils (Bld) [#/Vol] 8.00 10*3/uL High 1.45-7.50 [facility] Comment on above: Order Comment: Speci men Type: BLOOD SPECIMENOrdering Facility: [facility] Address: [address] [place] [address] Performed By: #### I PFR, 16844-6, 19739-5 ####[facility] LABCLIA [id number] [place] [address] [place] Neutrophils/100 WBC (Bld) 76.6 % Normal [facility] Comment on above: Order Comment: Speci men Type: BLOOD SPECIMENOrdering Facility: [facility] Address: [address] [place] [address] Performed By: #### I PFR, 69875-9, 02078-3 ####[facility] LABCLIA [id number] [place] [address] [place] Nucleated RBC (Bld) [#/Vol] 10*3/uL Normal <0.01 [facility] Comment on above: Order Comment: Speci men Type: BLOOD SPECIMENOrdering Facility: [facility] Address: [address] [place] [address] Performed By: #### I PFR, 39787-0, 88559-9 ####[facility] LABCLIA [id number] [place] [address] [place] Nucleated RBC/100 WBC (Bld) [Ratio] 0.0 /[address] [facility] Comment on above: Order Comment: Speci men Type: BLOOD SPECIMENOrdering Facility: [facility] Address: [address] [place] [address] Performed By: #### I PFR, 87283-0, 95362-2 ####[facility] LABCLIA [id number] [place] [address] [place] Platelet mean volume (Bld) [Entitic vol] 11.5 fL Normal 9.0-12.7 [facility] Comment on above: Order Comment: Speci men Type: BLOOD SPECIMENOrdering Facility: [facility] Address: [address] [place] [address] Performed By: #### I PFR, 95419-6, 65375-8 ####[facility] LABCLIA [id number] [place] [address] [place] Platelets (Bld) [#/Vol] 43 10*3/uL Low 150-400 [facility] Comment on above: Order Comment: Speci men Type: BLOOD SPECIMENOrdering Facility: [facility] Address: [address] [place] [address] Performed By: #### I PFR, 15560-7, 52188-7 ####[facility] LABIA [id number] [place] [address] [place] RBC (Bld) [#/Vol] 2.63 10*6/uL Low 4.20-6.00 [facility] Comment on above: Order Comment: Speci men Type: BLOOD SPECIMENOrdering Facility: [facility] Address: [address] [place] [address] Performed By: #### I PFR, 28542-4, 40446-9 ####[facility] LABIA [id number] [place] [address] [place] WBC (Bld) [#/Vol] 10.43 10*3/uL Normal 3.70-11.[address] [facility] Comment on above: Order Comment: Speci men Type: BLOOD SPECIMENOrdering Facility: [facility] Address: [address] [place] [address] Performed By: #### I PFR, 31193-7, 59267-3 ####[facility] LABIA [id number] [place] [address] [place] Basophils (Bld) [#/Vol] 0.06 10*3/uL Normal <0.11 [facility] Comment on above: Order Comment: Speci men Type: BLOOD SPECIMENOrdering Facility: [facility] Address: [address] [place] [address] Performed By: #### 5 5454-3, 40724-0 ####[facility] LABCLIA [id number] [place] [address] [place] Basophils/100 WBC (Bld) 0.4 % Normal [facility] Comment on above: Order Comment: Speci men Type: BLOOD SPECIMENOrdering Facility: [facility] Address: [address] [place] [address] Performed By: #### 5 5454-3, 04370-6 ####[facility] LABCLIA [id number] [place] [address] [place] Differential cell count method Nom (Bld) Auto Normal [facility] Comment on above: Order Comment: Speci men Type: BLOOD SPECIMENOrdering Facility: [facility] Address: [address] [place] [address] Performed By: #### 5 5454-3, 47078-9 ####[facility] LABCLIA [id number] [place] [address] [place] Eosinophils (Bld) [#/Vol] 0.40 10*3/uL Normal <0.46 [facility] Comment on above: Order Comment: Speci men Type: BLOOD SPECIMENOrdering Facility: [facility] Address: [address] [place] [address] Performed By: #### 5 5454-3, 56724-8 ####[facility] LABCLIA [id number] [facility] [place] [address] [place] Eosinophils/100 WBC (Bld) 2.5 % Normal [facility] Comment on above: Order Comment: Speci men Type: BLOOD SPECIMENOrdering Facility: [facility] Address: [address] [place] [address] Performed By: #### 5 5454-3, 58691-5 ####[facility] LABCLIA [id number] [place] [address] [place] Erythrocyte distribution width (RBC) [Ratio] 18.0 % High 11.5-15.0 [facility] Comment on above: Order Comment: Speci men Type: BLOOD SPECIMENOrdering Facility: [facility] Address: [address] [place] [address] Performed By: #### 5 5454-3, 79459-5 ####[facility] LABIA [id number] [place] [address] [place] Hematocrit (Bld) [Volume fraction] 30.4 % Low 39.0-51.0 [facility] Comment on above: Order Comment: Speci men Type: BLOOD SPECIMENOrdering Facility: [facility] Address: [address] [place] [address] Performed By: #### 5 5454-3, 64416-6 ####[facility] LABIA [id number] [place] [address] [place] Hemoglobin (Bld) [Mass/Vol] 10.2 g/dL Low 13.0-17.0 [facility] Comment on above: Order Comment: Speci men Type: BLOOD SPECIMENOrdering Facility: [facility] Address: [address] [place] [address] Performed By: #### 5 5454-3, 65753-0 ####[facility] LABIA [id number] [place] [address] [place] Immature granulocytes (Bld) [#/Vol] 0.18 10*3/uL High <0.10 [facility] Comment on above: Order Comment: Speci men Type: BLOOD SPECIMENOrdering Facility: [facility] Address: [address] [place] [address] Performed By: #### 5 5454-3, 75519-6 ####[facility] LABCLIA [id number] [place] [address] [place] Immature granulocytes/100 WBC (Bld) 1.1 % Normal [facility] Comment on above: Order Comment: Speci men Type: BLOOD SPECIMENOrdering Facility: [facility] Address: [address] [place] [address] Performed By: #### 5 5454-3, 01123-2 ####[facility] LABCLIA [id number] [place] [address] [place] Lymphocytes (Bld) [#/Vol] 1.19 10*3/uL Normal 1.00-4.00 [facility] Comment on above: Order Comment: Speci men Type: BLOOD SPECIMENOrdering Facility: [facility] Address: [address] [place] [address] Performed By: #### 5 5454-3, 57316-1 ####[facility] LABCLIA [id number] [place] [address] [place] Lymphocytes/100 WBC (Bld) 7.6 % Normal [facility] Comment on above: Order Comment: Speci men Type: BLOOD SPECIMENOrdering Facility: [facility] Address: [address] [place] [address] Performed By: #### 5 5454-3, 27341-6 ####[facility] LABCLIA [id number] [place] [address] [place] MCH (RBC) [Entitic mass] 31.3 pg Normal 26.0-34.0 [facility] Comment on above: Order Comment: Speci men Type: BLOOD SPECIMENOrdering Facility: [facility] Address: [address] [place] [address] Performed By: #### 5 5454-3, 71052-0 ####[facility] LABCLIA [id number] [place] [address] [place] MCHC (RBC) [Mass/Vol] 33.6 g/dL Normal 30.5-36.0 [facility] Comment on above: Order Comment: Speci men Type: BLOOD SPECIMENOrdering Facility: [facility] Address: [address] [place] [address] Performed By: #### 5 5454-3, 49398-6 ####[facility] LABCLIA [id number] [place] [address] [place] MCV (RBC) [Entitic vol] 93.3 fL Normal 80.0-100.0 [facility] Comment on above: Order Comment: Speci men Type: BLOOD SPECIMENOrdering Facility: [facility] Address: [address] [place] [address] Performed By: #### 5 5454-3, 82438-2 ####[facility] LABIA [id number] [place] [address] [place] Monocytes (Bld) [#/Vol] 1.36 10*3/uL High <0.87 [facility] Comment on above: Order Comment: Speci men Type: BLOOD SPECIMENOrdering Facility: [facility] Address: [address] [place] [address] Performed By: #### 5 5454-3, 28826-6 ####[facility] LABIA [id number] [place] [address] [place] Monocytes/100 WBC (Bld) 8.6 % Normal [facility] Comment on above: Order Comment: Speci men Type: BLOOD SPECIMENOrdering Facility: [facility] Address: [address] [place] [address] Performed By: #### 5 5454-3, 66173-0 ####[facility] LABIA [id number] [place] [address] [place] Neutrophils (Bld) [#/Vol] 12.55 10*3/uL High 1.45-7.50 [facility] Comment on above: Order Comment: Speci men Type: BLOOD SPECIMENOrdering Facility: [facility] Address: [address] [place] [address] Performed By: #### 5 5454-3, 97850-2 ####[facility] LABCLIA [id number] [address] [address] [place] Neutrophils/100 WBC (Bld) 79.8 % Normal [facility] Comment on above: Order Comment: Speci men Type: BLOOD SPECIMENOrdering Facility: [facility] Address: [address] [place] [address] Performed By: #### 5 5454-3, 94488-0 ####[facility] LABIA [id number] [place] [address] [place] Nucleated RBC (Bld) [#/Vol] 10*3/uL Normal <0.01 [facility] Comment on above: Order Comment: Speci men Type: BLOOD SPECIMENOrdering Facility: [facility] Address: [address] [place] [address] Performed By: #### 5 5454-3, 33853-7 ####[facility] LABIA [id number] [place] [address] [place] Nucleated RBC/100 WBC (Bld) [Ratio] 0.0 /[address] [facility] Comment on above: Order Comment: Speci men Type: BLOOD SPECIMENOrdering Facility: [facility] Address: [address] [place] [address] Performed By: #### 5 5454-3, 92769-3 ####[facility] LABIA [id number] [address] [address] [place] Platelet mean volume (Bld) [Entitic vol] 12.1 fL Normal 9.0-12.7 [facility] Comment on above: Order Comment: Speci men Type: BLOOD SPECIMENOrdering Facility: [facility] Address: [address] [place] [address] Performed By: #### 5 5454-3, 57941-5 ####[facility] LABIA [id number] [place] [address] [place] Platelets (Bld) [#/Vol] 52 10*3/uL Low 150-400 [facility] Comment on above: Order Comment: Speci men Type: BLOOD SPECIMENOrdering Facility: [facility] Address: [address] [place] [address] Result Comment: Resu lts checked and verified.No clot detected. Performed By: #### 5 5454-3, 51258-3 ####[facility] LABCLIA [id number] [place] [address] [place] RBC (Bld) [#/Vol] 3.26 10*6/uL Low 4.20-6.00 [facility] Comment on above: Order Comment: Speci men Type: BLOOD SPECIMENOrdering Facility: [facility] Address: [address] [place] [address] Performed By: #### 5 5454-3, 13275-8 ####[facility] LABCLIA [id number] [place] [address] [place] WBC (Bld) [#/Vol] 15.74 10*3/uL High 3.70-11.[address] [facility] Comment on above: Order Comment: Speci men Type: BLOOD SPECIMENOrdering Facility: [facility] Address: [address] [place] [address] Performed By: #### 5 5454-3, 63684-1 ####[facility] LABIA [id number] [place] [address] [place] CEA SerPl-mCncon 11-11-2024 Carcinoembryonic Ag [Mass/Vol] 13.0 ng/mL High <=2.9 [facility] Comment on above: Order Comment: Speci men Type: BLOOD SPECIMENOrdering Facility: [facility] Address: [address] [place] [address] Result Comment: Carc inoembryonic antigen test is [...] used interchangeably. Performed By: #### 2 039-6, 54224-0, 2532-0 ####[facility] [id number] [address] [place] COAG CORE PANEL BLDon 2024 aPTT Coag (PPP) [Time] 41.3 s High 23.0-32.4 [facility] Comment on above: Order Comment: Speci men Type: BLOOD SPECIMENOrdering Facility: [facility] Address: [address] [place] [address] Performed By: #### C ORPNL ####[facility] [id number] [place] [address] [place] [facility] Fibrinogen Coag (PPP) [Mass/Vol] 88 mg/dL Low 200-400 [facility] Comment on above: Order Comment: Speci men Type: BLOOD SPECIMENOrdering Facility: [facility] Address: [address] [place] [address] Result Comment: [facility] Centermichael daniel checked for clot.Result rechecked. Performed By: #### C ORPNL ####[facility] [id number] [address] STATES OF [facility] INR Coag (PPP) [Relative time] 2.1 {INR} High 0.9-1.3 [facility] Comment on above: Order Comment: Speci men Type: BLOOD SPECIMENOrdering Facility: [facility] Address: [address] [place] [address] Result Comment: Sarah min K Antagonist (VKA) Therapeutic Range: INR 2 to 3 (Target INR of 2.5)Note: For patients treated with VKA drugs, such as warfarin, the [employer] 2012 Guideline recommends [...] al. Chest 2012, 141:7S-47SNishimura RA, et al. [facility] 2017, 70: 252-289 Performed By: #### C ORPNL ####[facility] [id number] [place] [address] [place] PT Coag (PPP) [Time] 21.8 s High 9.7-13.[address] [facility] Comment on above: Order Comment: Speci men Type: BLOOD SPECIMENOrdering Facility: [facility] Address: [address] [place] [address] Performed By: #### C ORPNL ####[facility] [id number] [place] [address] [place] CONSULTon 11-11-[address] [facility] CONSULT Normal [facility] CRP SerPl-mCncon 11-11-2024 CRP [Mass/Vol] 0.5 mg/dL Normal <0.9 [facility] Comment on above: Order Comment: Speci men Type: BLOOD SPECIMENOrdering Facility: [facility] Address: [address] [place] [address] Performed By: #### D 1987-12 ####[facility] [id number] [place] [address] [place] CYTOLOGY NON-GYNon AP DISCLAIMER Normal [facility] Comment on above: Order Comment: Speci men Type: FLUID SPECIMENOrdering Facility: [facility] Address: [address] [place], [place] [address] Result Comment: Shellie pugh Developed Test (LDT) Disclaimer:Performance characteristics of immunohistochemical, immunofluorescent, and chromogenic in-situ hybridization tests have been determined by the performing laboratory within [facility]'s Thai Jackie [facility] Pathology and Laboratory Medicine Department ([facility], [facility], [facility], [facility], [facility], [facility], or [facility]) in a manner consistent with [...] stain appropriately. Performed By: #### C YTONON ####[facility] LABCLIA [id number] [place] [address] [place] CASE REPORT Normal [facility] Comment on above: Order Comment: Speci men Type: FLUID SPECIMENOrdering Facility: [facility] Address: [address] [place] [address] Result Comment: [facility] Cytology Report Case: [id number] Provider: Yaritza Juarez, Collected: 11/11/2024 05:14 PM [employer]UST[employer]AL SAFETY AND HEALTH MANAGER.CNPOrdering Location: [place] [address] Received: 11/11/2024 08:30 PMPathologist: Sameer Fournier MDSpecimen: Abdomen Performed By: #### C YTONON ####[facility] LABCLIA [id number] [place] [address] [place] CLINICAL HISTORY paracentesis fluid Normal [facility] Comment on above: Order Comment: Speci men Type: FLUID SPECIMENOrdering Facility: [facility] Address: [address] [place] [address] Performed By: #### C YTONON ####[facility] LABCLIA [id number] [place] [address] [place] FINAL DIAGNOSIS Normal [facility] Comment on above: Order Comment: Speci men Type: FLUID SPECIMENOrdering Facility: [facility] Address: [address] [place] [address] Result Comment: A - Abdomen, Fluid Negative for malignant cells.The following cell blocks were associated with this case:A1\X09\Cell Block, Alcohol Fixed\X09\ at 1034 EDT Performed By: #### C YTONON ####[facility] LABCLIA [id number] [place] [address] [place] FINAL PERFORMING LAB Normal [facility] Comment on above: Order Comment: Speci men Type: FLUID SPECIMENOrdering Facility: [facility] Address: [address] [place] [address] Result Comment: Tech nical component, recreation facility attendant screening performed at: [facility], [address] [place] [address] CLIA: [id number] interpretation performed at: [facility], [address] [place] [address] CLIA# [id number] Director: Titi Voss MD Performed By: #### C YTONON ####[facility] LABCLIA [id number] [address] [place] GROSS DESCRIPTION A. Abdomen Normal [facility] Comment on above: Order Comment: Speci men Type: FLUID SPECIMENOrdering Facility: [facility] Address: [address] [place] [address] Result Comment: 1450 cc opaque lexis fluid . ThinPrep and Cell Block prepared. Performed By: #### C YTONON ####[facility] LABCLIA [id number] [place] [address] [place] Cancer Ag19-9 SerPl-aCncon 0 11-11-2024 Cancer Ag 19-9 Qn <2.0 Normal <36.0 [facility] Comment on above: Order Comment: Speci men Type: BLOOD SPECIMENOrdering Facility: [facility] Address: [address] [place] [address] Result Comment: [facility] 19-9 test is used as an aid in monitoring response to treatment or recurrence in patients with established pancreatic, hepatobiliary, or gastrointestinal malignancies. Clinical correlation is required.The CA 19-9 Antigen test was performed using the Fiordaliza Embrace+ Unicel DXI paramagnetic particle chemiluminescent immunoassay method. Results obtained with different assay methods or kits cannot be used interchangeably. Performed By: #### 2 039-6, 55915-1, 2532-0 ####[facility] LABCLIA [id number] [place] [address] [place] Cardiolipin IgA Ser IA-aCnco n 11-11-2024 Cardiolipin IgA IA Qn (S) 9.7 [APL'U] Normal <12.0 [facility] Comment on above: Order Comment: Ezekiel ramirez Type: BLOOD SPECIMENOrdering Facility: [facility] Address: [address] [place] [address] Result Comment: <12 APL Dhdipkft20-02 APL Indeterminate>20 APL PositiveThe following results were obtained with the Streaming Era QUANTA Lite TEZ IgA III ANDERS. Cardiolipin IgA values obtained with the different manufacturers' assay methods may not be used interchangeably. The magnitude of the reported IgA levels cannot be correlated to an endpoint titer. Performed By: #### 5 076, MELVIN ARMENTA ####[facility] LABIA [id number] [place] [address] [place] DIRECT BILIRUBIN BLOODon Bilirubin.conjugated [Mass/Vol] 1.1 mg/dL High <0.3 [facility] Comment on above: Order Comment: Ezekiel ramirez Type: BLOOD SPECIMENOrdering Facility: [facility] Address: [address] [place] [address] Performed By: #### D ASHLEY, 1986-12 ####[facility] LABCLIA [id number] [place] [address] [place] ECG COMPLETEon 11-11-[address] [facility] TOH19gl 11-11-[address] [facility] Ferritin SerPl-mCncon 2024 Ferritin [Mass/Vol] 82.4 ng/mL Normal 30.3-565.7 [facility] Comment on above: Order Comment: Speci men Type: BLOOD SPECIMENOrdering Facility: [facility] Address: [address] [place] [address] Performed By: #### 2 276-4, 50605-6, 84721-0, 77524-2, 2777-1, 27276-7 ####[facility] LABCLIA [id number] [place] [address] [place] Fibrinogen PPP-mCncon 2024 Fibrinogen Coag (PPP) [Mass/Vol] 90 mg/dL Low 200-400 [facility] Comment on above: Order Comment: Speci men Type: BLOOD SPECIMENOrdering Facility: [facility] Address: [address] [place] [address] Result Comment: Samp le checked for clot.Result rechecked. Performed By: #### 3 255-7, 60835-2 ####[facility] LABCLIA [id number] [place] [address] [place] HISTORY PHYSICALon HISTORY PHYSICAL Normal [facility] HYPERCOAG PANELon 11-11-2024 Activated protein C resistance Coag (PPP) [Time ratio] 2.10 Ratio Normal >1.96 [facility] Comment on above: Order Comment: Speci men Type: BLOOD SPECIMENOrdering Facility: [facility] Address: [address] [place] [address] Performed By: #### L [id number], HCOAG, 6303-2, 30293-0, 89461-9 ####[facility] LABCLIA [id number] [address], [facility] [place] Antithrombin actual/normal Chromogenic method (PPP) [Rel catalytic activity/Vol] 30 % Low 84-138 [facility] Comment on above: Order Comment: Speci men Type: BLOOD SPECIMENOrdering Facility: [facility] Address: [address] [place] [address] Performed By: #### L [id number], HCOAG, 6303-2, 66240-1, 38675-4 ####[facility] LABIA [id number] [place] [address] [place] aPTT Coag (Bld) [Time] 47.9 s High 24.0-35.1 [facility] Comment on above: Order Comment: Speci men Type: BLOOD SPECIMENOrdering Facility: [facility] Address: [address] [place] [address] Performed By: #### L [id number], HCOAG, 6303-2, 59455-3, 98806-2 ####[facility] LABIA [id number] [place] [address] [place] aPTT W excess hexagonal phase phospholipid Coag (PPP) [Time] 36.5 seconds Normal 34.0-51.8 [facility] Comment on above: Order Comment: Speci men Type: BLOOD SPECIMENOrdering Facility: [facility] Address: [address] [place] [address] Performed By: #### L [id number], HCOAG, 6303-2, 30708-4, 15693-2 ####[facility] [id number] [place] [address] [place] aPTT-LA w 1:1 PNP Coag (PPP) [Time] 32.5 seconds Normal <33.2 [facility] Comment on above: Order Comment: Speci men Type: BLOOD SPECIMENOrdering Facility: [facility] Address: [address] [place] [address] Result Comment: This test was developed, and [...] or for research. Performed By: #### L [id number], HCOAG, 6303-2, 18905-9, 72124-6 ####[facility] LABCLIA [id number] [address] [address] [place] Coagulation factor VIII activity actual/normal Coag (PPP) [Relative time] 332 % High 50-173 [facility] Comment on above: Order Comment: Speci men Type: BLOOD SPECIMENOrdering Facility: [facility] Address: [address] [place] [address] Performed By: #### L [id number], HCOAG, 6303-2, 00031-5, 72825-5 ####[facility] [id number] [place] [address] [place] Coagulation factor X activated act Coag Qn (PPP) <0.10 Normal <0.10 [facility] Comment on above: Order Comment: Ezekiel ramirez Type: BLOOD SPECIMENOrdering Facility: [facility] Address: [address] [place] [address] Result Comment: This test was developed, and [...] or for research. Performed By: #### L [id number], HCOAG, 6303-2, 06774-9, 49723-0 ####[facility] LABIA [id number] [place] [address] [place] Delta dRVVT Coag (PPP) [Time diff] 2.2 delta seconds Normal <7.1 [facility] Comment on above: Order Comment: Speci men Type: BLOOD SPECIMENOrdering Facility: [facility] Address: [address] [place] [address] Performed By: #### L [id number], HCOAG, 6303-2, 31466-8, 29258-0 ####[facility] LABCLIA [id number] [place] [address] [place] dRVVT W excess hexagonal phase phospholipid actual/normal Coag (PPP) [Relative time] 34.3 seconds Normal 34.2-47.9 [facility] Comment on above: Order Comment: Speci men Type: BLOOD SPECIMENOrdering Facility: [facility] Address: [address] [place] [address] Performed By: #### L [id number], HCOAG, 6303-2, 14226-6, 11967-7 ####[facility] LABIA [id number] [place] [address] [place] Protein C actual/normal Coag (PPP) [Relative time] 24 % Low 76-147 [facility] Comment on above: Order Comment: Speci men Type: BLOOD SPECIMENOrdering Facility: [facility] Address: [address] [place] [address] Performed By: #### L [id number], HCOAG, 6303-2, 19004-2, 15136-8 ####[facility] LABIA [id number] [place] [address] [place] Protein S actual/normal Coag (PPP) [Relative time] 28 % Low 59-152 [facility] Comment on above: Order Comment: Speci men Type: BLOOD SPECIMENOrdering Facility: [facility] Address: [address] [place] [address] Performed By: #### L [id number], HCOAG, 6303-2, 32714-5, 73782-5 ####[facility] LABCLIA [id number] [place] [address] [place] Protein S Free Ag actual/normal IA (PPP) [Relative mass conc] 45 % Low 55-148 [facility] Comment on above: Order Comment: Ezekiel ramirez Type: BLOOD SPECIMENOrdering Facility: [facility] Address: [address] [place] [address] Performed By: #### L [id number], HCOAG, 6303-2, 15588-3, 79167-4 ####[facility] LABCLIA [id number] [place] [address] [place] Thrombin time Coag (PPP) [Time] 20.0 seconds High <18.6 [facility] Comment on above: Order Comment: Ezekiel ramirez Type: BLOOD SPECIMENOrdering Facility: [facility] Address: [address] [place] [address] Performed By: #### L [id number], HCOAG, 6303-2, 04706-9, 78699-5 ####[facility] LABCLIA [id number] [address] [place] HYPERCOAG PANEL INTERPon INTERPRETATION (HYPERCOAG) Normal [facility] Comment on above: Order Comment: Ezekiel ramirez Type: BLOOD SPECIMENOrdering Facility: [facility] Address: [address] [place] [address] Result Comment: Abno miguelal - see comment [...] negative for the c.*97G>A variant (legacy name 06953V>A) in the 3' untranslated region of the [...] phase phospholipid neutralization. Performed By: #### L [id number], OA, 6303-2, 52149-0, 81382-3 ####[facility] LABIA [id number] [address] [address] [place] Pathologist name Reviewed by Julia Howell M.D., Ph.D Normal [facility] Comment on above: Order Comment: Speci men Type: BLOOD SPECIMENOrdering Facility: [facility] Address: [address] [place] [address] Performed By: #### L [id number], HCOAG, 6303-2, 26833-6, 33312-7 ####[facility] [id number] [place] [address] [place] Haptoglob SerPl-mCncon 11-11 Haptoglobin [Mass/Vol] 15 mg/dL Low 31-238 Cl [facility] Comment on above: Order Comment: Speci men Type: BLOOD SPECIMENOrdering Facility: [facility] Address: [address] [place] [address] Performed By: #### 2 4362-6, 4542-7 ####[facility] [id number] [place] [address] [place] HbA1c (Bld)on 11-11-2024 Average glucose Estimated from glycated hemoglobin (Bld) [Mass/Vol] 154 mg/dL Normal [facility] Comment on above: Order Comment: Speci men Type: BLOOD SPECIMENOrdering Facility: [facility] Address: [address] [place] [address] Result Comment: eAG: (Estimated average glucose) is a calculated value from HgbA1c and is access service representative of the average blood glucose level in the last 2-3 month period. Performed By: #### 5 5454-3, 32851-1 ####[facility] [id number] [address] [address] [place] HbA1c (Bld) [Mass fraction] 7.0 % High 4.3-5.6 [facility] Comment on above: Order Comment: Speci men Type: BLOOD SPECIMENOrdering Facility: [facility] Address: [address] [place] [address] Result Comment: [place] Diabetes Association guidelines indicate that patients with HgbA1c in the range 5.7-6.4% are at increased risk for development of diabetes, and intervention by lifestyle modification may be beneficial. HgbA1c greater or equal to 6.5% is considered diagnostic of diabetes. Performed By: #### 5 5454-3, 85767-5 ####[facility] LABCLIA [id number] [address] [address] [place] Hepatic function 2000 panelo n 11-11-2024 Albumin [Mass/Vol] 2.1 g/dL Low 3.9-4.9 [facility] Comment on above: Order Comment: Speci men Type: BLOOD SPECIMENOrdering Facility: [facility] Address: [address] [place] [address] Performed By: #### 2 276-4, 21278-9, 81491-7, 66816-7, 2777-1, 09981-4 ####[facility] LABIA [id number] [place] [address] [place] ALP [Catalytic activity/Vol] 310 U/L High 38-113 [facility] Comment on above: Order Comment: Speci men Type: BLOOD SPECIMENOrdering Facility: [facility] Address: [address] [place] [address] Performed By: #### 2 276-4, 37363-9, 09259-9, 93118-9, 7-1, 08997-0 ####[facility] LABIA [id number] [address] [address] [place] ALT [Catalytic activity/Vol] 31 U/L Normal 10-54 [facility] Comment on above: Order Comment: Speci men Type: BLOOD SPECIMENOrdering Facility: [facility] Address: [address] [place] [address] Performed By: #### 2 276-4, 37554-2, 16541-2, 07361-6, 2777-1, 53853-2 ####[facility] LABCLIA [id number] [address] [place] [address] [place] AST [Catalytic activity/Vol] 44 U/L High 14-40 [facility] Comment on above: Order Comment: Speci men Type: BLOOD SPECIMENOrdering Facility: [facility] Address: [address] [place] [address] Performed By: #### 2 276-4, 86818-6, 03804-4, 84929-5, 7-1, 74271-5 ####[facility] LABCLIA [id number] [address] [address] [place] Bilirubin [Mass/Vol] 1.6 mg/dL High 0.2-1.[address] [facility] Comment on above: Order Comment: Speci men Type: BLOOD SPECIMENOrdering Facility: [facility] Address: [address] [place] [address] Performed By: #### 2 276-4, 67398-5, 16555-7, 11065-3, 7-1, 04609-9 ####[facility] LABIA [id number] [address] [address] [place] Bilirubin.conjugated [Mass/Vol] 1.0 mg/dL High <0.3 [facility] Comment on above: Order Comment: Speci men Type: BLOOD SPECIMENOrdering Facility: [facility] Address: [address] [place] [address] Performed By: #### 2 276-4, 92954-6, 47469-7, 70841-4, 7-1, 40464-4 ####[facility] LABCLIA [id number] [address] [address] [place] Protein [Mass/Vol] 5.3 g/dL Low 6.3-8.0 [facility] Comment on above: Order Comment: Speci men Type: BLOOD SPECIMENOrdering Facility: [facility] Address: [address] [place] [address] Performed By: #### 2 276-4, 54375-5, 46907-3, 42233-4, 2776-1, 86095-4 ####[facility] LABCLIA [id number] [address], [facility]95 [place] IMMATURE PLATELET FRACTIONon 11-11-2024 Platelets reticulated/100 platelets Auto (Bld) 7.7 % High 0.9-7.2 [facility] Comment on above: Order Comment: Speci men Type: BLOOD SPECIMENOrdering Facility: [facility] Address: [address] [place] [address] Performed By: #### I PFR, 50145-9, 06841-8 ####[facility] LABCLIA [id number] [place] [address] [place] Iron and Iron binding capaci ty panelon 11-11-2024 Iron [Mass/Vol] 34 ug/dL Low 41-186 [facility] Comment on above: Order Comment: Speci men Type: BLOOD SPECIMENOrdering Facility: [facility] Address: [address] [place] [address] Performed By: #### 2 276-4, 88780-2, 87897-1, 60728-6, 2776-1, 77154-6 ####[facility] LABCLIA [id number] [place] [address] [place] Iron binding capacity [Mass/Vol] 180 ug/dL Low 232-386 [facility] Comment on above: Order Comment: Speci men Type: BLOOD SPECIMENOrdering Facility: [facility] Address: [address] [place] [address] Performed By: #### 2 276-4, 10578-6, 30471-9, 19586-2, 7-1, 37092-7 ####[facility] LABCLIA [id number] [address] [place] Iron/TIBC [Molar ratio] 18.9 % Normal 15.0-57.0 C [facility] Comment on above: Order Comment: Megganhelder ramirez Type: BLOOD SPECIMENOrdering Facility: [facility] Address: [address] [place] [address] Performed By: #### 2 276-4, 61392-1, 72600-7, 62437-0, 2777-1, 83138-3 ####[facility] LABIA [id number] [place] [address] [place] LDH SerPl-[facility] 11-11-2024 LDH [Catalytic activity/Vol] 321 U/L High 135-225 [facility] Comment on above: Order Comment: Meggani james Type: BLOOD SPECIMENOrdering Facility: [facility] Address: [address] [place] [address] Performed By: #### 2 039-6, 72061-8, 2532-0 ####[facility] LABIA [id number] [place] [address] [place] Lipase Fld-[facility] 11-11-2024 Lipase (Body fld) [Catalytic activity/Vol] 29 U/L Normal See Comment [facility] Comment on above: Order Comment: Spechelder ramirez Type: FLUID SPECIMENOrdering Facility: [facility] Address: [address] [place] [address] Result Comment: Pleu ral fluids: Lipase measurement [...] document C49A. PAULETTE Diaz: Clinical Laboratory Standards [place]: 2007.2. Boot C. A review of pancreatic cyst fluid analysis in the differential diagnosis of pancreatic cyst lesions. [facility] [employer] 2013:0:1-16. Performed By: #### 1 747-5, 1795-4, 52126-8, 2881-1 ####[facility] LABIA [id number] [place] [address] [place] Lupus anticoagulant neutrali zation platelet Coag Ql (PPP)on 11-11-2024 aPTT Coag (Bld) [Time] 56.8 s High 30.2-43.0 [facility] Comment on above: Order Comment: Speci men Type: BLOOD SPECIMENOrdering Facility: [facility] Address: [address] [place] [address] Result Comment: This test was developed, and [...] or for research. Performed By: #### L [id number], HCOAG, 6303-2, 23042-3, 72129-1 ####[facility] LABIA [id number] [place] [address] [place] aPTT Coag (Bld) [Time] 36.5 s Normal 31.5-38.3 [facility] Comment on above: Order Comment: Speci men Type: BLOOD SPECIMENOrdering Facility: [facility] Address: [address] [place] [address] Result Comment: This test was developed, and [...] or for research. Performed By: #### L [id number], HCOAG, 6303-2, 27719-2, 36388-0 ####[facility] LABCLIA [id number] [address] [place] [address] [place] PLATELET NEUT 0.0 Seconds Normal <1.9 [facility] Comment on above: Order Comment: Speci men Type: BLOOD SPECIMENOrdering Facility: [facility] Address: [address] [place] [address] Result Comment: This test was developed, and [...] or for research. Performed By: #### L [id number], HCOAG, 6303-2, 62002-8, 09751-5 ####[facility] LABCLIA [id number] [address] [place] [address] [place] MANUAL DIFFERENTIAL, BODY FL UIDon 11-11-2024 DIF TTL, BODY FLUID [address] [facility] Comment on above: Order Comment: Speci men Type: FLUID SPECIMENOrdering Facility: [facility] Address: [address] [place] [address] Performed By: #### C CBF, [id number] ####[facility] LABCLIA [id number] [address] [place] [address] [place] LYMPH%, BF 37 % High 18-36 [facility] Comment on above: Order Comment: Speci men Type: FLUID SPECIMENOrdering Facility: [facility] Address: [address] [place] [address] Performed By: #### C CBF, [id number] ####[facility] LABCLIA [id number] [address] [place] [address] [place] MACRO%, BF 21 % Low 64-80 [facility] Comment on above: Order Comment: Speci men Type: FLUID SPECIMENOrdering Facility: [facility] Address: [address] [place] [id number] Performed By: #### C CBF, [id number] ####[facility] LABCLIA [id number] [address] [place] [address] [place] MESO %, BF 12 % High 0-2 [facility] Comment on above: Order Comment: Speci men Type: FLUID SPECIMENOrdering Facility: [facility] Address: [address] [place] [address] Performed By: #### C CBF, [id number] ####[facility] LABCLIA [id number] [address] [place] [address] [place] NEUT%, BF 26 % High 0-1 [facility] Comment on above: Order Comment: Speci men Type: FLUID SPECIMENOrdering Facility: [facility] Address: [address] [place] [address] Performed By: #### C CBF, [id number] ####[facility] LABCLIA [id number] [address] [place] [address] [place] REAC LYMPH %, BF 4 % Normal [facility] Comment on above: Order Comment: Speci men Type: FLUID SPECIMENOrdering Facility: [facility] Address: [address] [place] [address] Performed By: #### C CBF, [id number] ####[facility] LABCLIA [id number] [address] [place] [address] [place] MEDICAL EMERon 11-11-[address] [facility] MEDICAL KRISTINA Normal [facility] Magnesium SerPl-mCncon 11-11 Magnesium [Mass/Vol] 2.3 mg/dL Normal 1.7-2.[address] [facility] Comment on above: Order Comment: Speci men Type: BLOOD SPECIMENOrdering Facility: [facility] Address: [address] [place] [address] Performed By: #### 2 276-4, 74570-2, 38395-2, 60398-4, 2777-1, 26821-1 ####[facility] LABCLIA [id number] [facility] [place] [address] [facility] NURSING PROGon 11-11-[address] [facility] PLT DEP.AB, UNF. HEPARINon 0 11-11-2024 % REL HIGH DOSE HEP PORCINE 0 % Normal [facility] Comment on above: Order Comment: Speci men Type: BLOOD SPECIMENOrdering Facility: [facility] Address: [address] [place] [address] Performed By: #### S ERORE ####[facility] [id number] [place] [address] % REL LOW DOSE HEP PORCINE 0 % Normal [facility] Comment on above: Order Comment: Speci men Type: BLOOD SPECIMENOrdering Facility: [facility] Address: [address] [place] [address] Performed By: #### S ERORE ####[facility] [id number] [place] [address] SEROTONIN REL INTERP See Note Normal [facility] Comment on above: Order Comment: Speci men Type: BLOOD SPECIMENOrdering Facility: [facility] Address: [address] [place] [address] Result Comment: This patient's specimen demonstrates a [...] Additionalinformation regarding diagnosis of HIT is available [employer]Check.Polyplus-transfection.INTERPRETIVE INFORMATION: ABRAHAM, Unfractionated HeparinThis test was developed and its performance characteristicsdetermined by [facility]. It has not been cleared orapproved by the [place] Food and Drug Administration. This test wasperformed in a CLIA certified laboratory and is intended forclinical purposes.Performed By: [facility] [place], [place] [id number] Director: Lizandro Ordonez MD, PhDCLIA Number: [id number] Performed By: #### S ERORE ####[facility] LABORATORIESCLIA [id number] [place] [address] ABRAHAM, UNFRACTIONATED HEPARIN Negative Normal Negative [facility] Comment on above: Order Comment: Speci men Type: BLOOD SPECIMENOrdering Facility: [facility] [facility] Address: [address] [place] [address] Performed By: #### S ERORE ####[facility] [id number] [place] [address] PROTHROMBIN GENE PCRon 11-11 PR[address]HROMBIN [address] Normal [facility] Comment on above: Order Comment: Speci men Type: BLOOD SPECIMENOrdering Facility: [facility] Address: [address] [place] [address] Result Comment: Prot hrombin Gene MutationLaboratory Accession Number: [id number]:NORMALInterpretation:The DNA sample is negative for the c.*97G>A variant (legacy [id number]>A) in the 3' untranslated region of the Factor II (F2) gene.This result is not associated with an increased risk of thromboembolicdisease. Thromboembolic disease is a multifactorial disorder and othercauses are not excluded by this result.Methodology:Isolated Genomic DNA from the patient's blood specimen is evaluatedfor the c*97G>A ([id number]) variant of the F2 gene [RefSeqNM_000506.53;GRCh38/hg38] by multiplex polymerase chain reaction (PCR)followed by melting curve analysis.Limitations:This assay is designed to detect the c.*97G>A (67295J>A) variant inthe F2 gene. Uncommon variants or [...] been cleared or approved by the FDA. [facility]'s[facility] is regulated under CLIAas certified to perform high-complexity testing. This test is used forclinical purposes. It should not be regarded as investigational or forresearch.Test performed at [facility], [address] [place] [address], [place] [address]. CLIA Number: [id number]:1) Inheritied Thrombophilias in . ACOG Practice Bulletin. No.197. [employer]. ObseteGynecol 2018;132:e18-34.2) Elfego SR, Kinsey FR, Jeremy PH, and Bernice RM. A commongenetic variation in the 3'-untranslated region of the prothrombingene is associated with elevated plasma prothrombin levels and anincrease in venous thrombosis. Blood 88:3698-703, 1995.3) Rica I, Justus V, Nayan C, Emily K. Roicjwyjdvb01736L>T: 16 new cases, association with the 95097T>G polymorphism,and literature review. J Thromb Haemost. 2009;9:1585-7.Interpretation performed at remote location (R0A1) by Fifi España MD Performed By: #### P TGEN ####[facility] [id number] [address] [place] PT panel Coag (PPP)on 2024 INR Coag (PPP) [Relative time] 2.3 {INR} High 0.9-1.3 [facility] Comment on above: Order Comment: Speci men Type: BLOOD SPECIMENOrdering Facility: [facility] Address: [address] [place] [address] Result Comment: Sarah min K Antagonist (VKA) Therapeutic Range: INR 2 to 3 (Target INR of 2.5)Note: For patients treated with VKA drugs, such as warfarin, the [place] [employer] 2012 Guideline recommends [...] al. Chest 2012, 141:7S-47SNishbethel RA, et al. [facility] 2017, 70: 252-289 Performed By: #### P TTA, 90157-4 ####[facility] LABCLIA [id number] [place] [address] [place] PT Coag (PPP) [Time] 23.1 s High 9.7-13.[address] [facility] Comment on above: Order Comment: Ezekiel ramirez Type: BLOOD SPECIMENOrdering Facility: [facility] Address: [address] [place] [address] Performed By: #### P TTA, 79022-9 ####[facility] LABIA [id number] [place] [address] [place] INR Coag (PPP) [Relative time] 2.1 {INR} High 0.9-1.3 [facility] Comment on above: Order Comment: Ezekiel ramirez Type: BLOOD SPECIMENOrdering Facility: [facility] Address: [address] [place] [address] Result Comment: Sarah min K Antagonist (VKA) Therapeutic Range: INR 2 to 3 (Target INR of 2.5)Note: For patients treated with VKA drugs, such as warfarin, the [employer] 2012 Guideline recommends [...] al. Chest 2012, 141:7S-47SNishimura RA, et al. [facility] 2017, 70: 252-289 Performed By: #### 3 4528-0 ####[facility] LABCLIA [id number] [place] [address] [place] PT Coag (PPP) [Time] 22.0 s High 9.7-13.[address] [facility] Comment on above: Order Comment: Speci men Type: BLOOD SPECIMENOrdering Facility: [facility] Address: [address] [place] [address] Performed By: #### 3 4528-0 ####[facility] LABIA [id number] [place] [address] [place] PTT, ANTICOAGULANT THERAPYon 11-11-2024 aPTT Coag (PPP) [Time] EXTREMELY ABNORMA L RESULT. No clot detected at 320 seconds. Refer to anticoagulation nomogram for further actions. Critically abnormal (none) [facility] Comment on above: Order Comment: Speci men Type: BLOOD SPECIMENOrdering Facility: [facility] Address: [address] [place] [address] Result Comment: Resu lt rechecked.Sample checked for clot. Performed By: #### P TTAC, 87005-9 ####[facility] LABIA [id number] [place] [address] [place] Phosphate SerPl-mCncon 11-11 Phosphate [Mass/Vol] 2.6 mg/dL Low 2.7-4.[address] [facility] Comment on above: Order Comment: Speci men Type: BLOOD SPECIMENOrdering Facility: [facility] Address: [address] [place] [address] Performed By: #### 2 276-4, 38962-6, 70810-7, 76335-1, 2777-1, 62681-9 ####[facility] LABCLIA [id number] [place] [address] [place] Prot Fld-mCncon 11-11-2024 Protein (Body fld) [Mass/Vol] 0.2 g/dL Normal See Comment [facility] Comment on above: Order Comment: Speci men Type: FLUID SPECIMENOrdering Facility: [facility] Address: [address] [place] [address] Result Comment: Sero us fluids: Effusions are [...] document C49A. PAULETTE Diaz: Clinical Laboratory Standards [place]: 2007. Performed By: #### 1 747-5, 1795-4, 90698-1, 2881-1 ####[facility] LABIA [id number] [place] [address] [place] Renal function 2000 panelon 11-11-2024 Albumin [Mass/Vol] 2.4 g/dL Low 3.9-4.9 [facility] Comment on above: Order Comment: Speci men Type: BLOOD SPECIMENOrdering Facility: [facility] Address: [address] [place] [address] Performed By: #### 2 4362-6, 4542-7 ####[facility] [id number] [place] [address] [place] Anion gap [Moles/Vol] 10 mmol/L Normal 8-15 [facility] Comment on above: Order Comment: Speci men Type: BLOOD SPECIMENOrdering Facility: [facility] Address: [address] [place], [place] [address] Performed By: #### 2 4362-6, 4541-7 ####[facility] LABCLIA [id number] [address] [address] [place] Calcium [Mass/Vol] 9.3 mg/dL Normal 8.5-10.2 [facility] Comment on above: Order Comment: Speci men Type: BLOOD SPECIMENOrdering Facility: [facility] Address: [address] [place] [address] Performed By: #### 2 436-6, 7 ####[facility] LABCLIA [id number] [place] [address] [place] Chloride [Moles/Vol] 100 mmol/L Normal 98-[address] [facility] Comment on above: Order Comment: Speci men Type: BLOOD SPECIMENOrdering Facility: [facility] Address: [address] [place] [address] Performed By: #### 2 436-6, 7 ####[facility] LABCLIA [id number] [place] [address] [place] CO2 [Moles/Vol] 13 mmol/L Low 22-30 [facility] Comment on above: Order Comment: Speci men Type: BLOOD SPECIMENOrdering Facility: [facility] Address: [address] [place] [address] Performed By: #### 2 436-6, 7 ####[facility] LABCLIA [id number] [address] [address] [place] Creatinine [Mass/Vol] 1.26 mg/dL High 0.73-1.22 [facility] Comment on above: Order Comment: Speci men Type: BLOOD SPECIMENOrdering Facility: [facility] Address: [address] [place], [place] [address] Performed By: #### 2 4362-6, 4541-7 ####[facility] [id number] [place] [address] [place] Creatinine and Glomerular filtration rate.predicted panel (S/P/Bld) 66 mL/min/1.73m??? Normal >=60 [facility] Comment on above: Order Comment: Spechelder ramirez Type: BLOOD SPECIMENOrdering Facility: [facility] Address: [address] [place] [address] Result Comment: Patric mated Glomerular Filtration Rate [...] GFR. Performed By: #### 2 4362-6, 4542-7 ####[facility] [id number] [place] [address] [place] Glucose [Mass/Vol] 255 mg/dL High 74-99 [facility] Comment on above: Order Comment: Ezekiel ramirez Type: BLOOD SPECIMENOrdering Facility: [facility] Address: [address] [place] [address] Result Comment: The [place] Diabetes Association (ADA) provides guidance for cutoff [...] Standards of Medical Care in Diabetes 2016, [place] Diabetes Association. Diabetes Care. 2016.39(Suppl 1). Performed By: #### 2 4362-6, 4542-7 ####[facility] [id number] [place] [address] [place] Phosphate [Mass/Vol] 2.5 mg/dL Low 2.7-4.[address] [facility] Comment on above: Order Comment: Speci men Type: BLOOD SPECIMENOrdering Facility: [facility] Address: [address] [place] [address] Performed By: #### 2 4362-6, 4541-7 ####[facility] LABCLIA [id number] [place] [address] [place] Potassium [Moles/Vol] 4.4 mmol/L Normal 3.7-5.1 [facility] Comment on above: Order Comment: Speci men Type: BLOOD SPECIMENOrdering Facility: [facility] Address: [address] [place] [address] Performed By: #### 2 4362-6, 4541-7 ####[facility] LABIA [id number] [place] [address] [place] Sodium [Moles/Vol] 123 mmol/L Low 136-144 [facility] Comment on above: Order Comment: Speci men Type: BLOOD SPECIMENOrdering Facility: [facility] Address: [address] [place] [address] Performed By: #### 2 4362-6, 7 ####[facility] LABIA [id number] [place] [address] [place] Urea nitrogen [Mass/Vol] 21 mg/dL Normal 9-24 [facility] Comment on above: Order Comment: Speci men Type: BLOOD SPECIMENOrdering Facility: [facility] Address: [address] [place] [address] Performed By: #### 2 4362-6, 4541-7 ####[facility] LABCLIA [id number] [place] [address] [place] Retics #on 11-11-2024 Reticulocytes (Bld) [#/Vol] 0.78205 10*3/uL High 0.018-0.100 [facility] Comment on above: Order Comment: Speci men Type: BLOOD SPECIMENOrdering Facility: [facility] Address: [address] [place] [address] Performed By: #### I PFR, 41812-6, 75477-1 ####[facility] LABCLIA [id number] [place] [address] [place] Reticulocytes (Bld) [#/Vol]o n 11-11-2024 Reticulocytes/100 RBC (Bld) 4.1 % High 0.4-2.0 [facility] Comment on above: Order Comment: Speci men Type: BLOOD SPECIMENOrdering Facility: [facility] Address: [address] [place] [address] Performed By: #### I PFR, 65804-5, 21573-7 ####[facility] LABCLIA [id number] [place] [address] [place] SEPSIS LACTATEon 11-11-2024 Lactate [Moles/Vol] 3.4 mmol/L High <=2.0 [facility] Comment on above: Order Comment: Speci men Type: BLOOD SPECIMENOrdering Facility: [facility] Address: [address] [place] [address] Performed By: #### S LACT ####[facility] LABCLIA [id number] [place] [address] [place] Lactate [Moles/Vol] 3.6 mmol/L High <=2.0 [facility] Comment on above: Order Comment: Speci men Type: BLOOD SPECIMENOrdering Facility: [facility] Address: [address] [place] [address] Performed By: #### S LACT ####[facility] LABCLIA [id number] [place] [address] [place] Screen dRVVTon 11-11-2024 dRVVT Coag (PPP) [Time] 42.6 s Normal 32.0-45.7 C [facility] Comment on above: Order Comment: Speci men Type: BLOOD SPECIMENOrdering Facility: [facility] Address: [address] [place] [address] Performed By: #### L [id number], HCOAG, 6303-2, 85119-0, 26756-8 ####[facility] LABCLIA [id number] [place] [address] [place] US ABD LIVER VASCULARon 04-1 US ABD LIVER VASCULAR Normal [facility] US DOPPLER COMPLETEon 2024 US DOPPLER COMPLETE Normal [facility] XR ABDOMEN 1V SUPINEon 11-11 XR ABDOMEN 1V SUPINE Normal [facility] XR CHEST 1V FRONTAL PORTon 0 11-11-2024 XR CHEST 1V FRONTAL PORT Normal [facility] XR CHEST 1V FRONTAL PORT Normal [facility] aPTT PPPon 11-11-2024 aPTT Coag (PPP) [Time] 41.7 s High 23.0-32.4 Cl [facility] Comment on above: Order Comment: Speci men Type: BLOOD SPECIMENOrdering Facility: [facility] Address: [address] [place] [address] Performed By: #### 3 255-7, 37005-2 ####[facility] LABIA [id number] [place] [address] [place] dRVVT Coag (PPP) [Time]on dRVVT factor substitution immediately after 1:2 addition of normal plasma Coag (PPP) [Time] 35.4 seconds Normal 32.0-45.7 [facility] Comment on above: Order Comment: Speci men Type: BLOOD SPECIMENOrdering Facility: [facility] Address: [address] [place] [address] Performed By: #### L [id number], HCOAG, 6303-2, 44482-6, 52653-3 ####[facility] LABCLIA [id number] [address] [place] dRVVT/dRVVT.excess phospholipid Coag (PPP) [Ratio] 0.91 Normal <1.32 [facility] Comment on above: Order Comment: Speci men Type: BLOOD SPECIMENOrdering Facility: [facility] Address: [address] [place] [address] Performed By: #### L JP9000, HCOAG, 6303-2, 03710-3, 09217-1 ####[facility] LABCLIA [id number] [place] [address] [place] ALP [Catalytic activity/Vol] Ordered By: Kathie Powers on 11-10-2024 Serum or plasma alkaline phosphatase measurement 310 U/L High 40-129 [facility] ALT [Catalytic activity/Vol] Ordered By: Kathie Powers on 11-10-2024 Serum or plasma alanine aminotransferase (ALT) measurement 36 U/L <47 [facility] Absolute lymphocyte countOrd ered By: Kathie Powers on 11-10-2024 Lymphocytes Auto (Unsp spec) [#/Vol] 1.30 10*3/uL 0.83-4.51 [facility] Absolute neutrophil countOrd ered By: Kathie Powers on 11-10-2024 Absolute neutrophil count 16.2 X10^3/uL High 2.0-7.7 [facility] Albumin [Mass/Vol]Ordered By : Kathie Powers on 11-10-2024 Serum or plasma albumin measurement (mass/volume) 2.3 g/dL Low 3.5-5.0 [facility] Albumin/Globulin [Mass ratio ]Ordered By: Kathie Powers on 11-10-2024 Serum or plasma albumin/globulin mass ratio 0.7 RATIO Low 0.9-2.4 [facility] Anion gap [Moles/Vol]Ordered By: Kathie Pwoers on 11-10-2024 Anion gap in Serum or Plasma 11 5-15 [facility] Anion gap in Serum or Plasma Ordered By: Kathie Powers on 11-10-2024 Anion gap [Moles/Vol] 11 mmol/L - [facility] Automated lymphocyte count a s percentage of total leukocytesOrdered By: Kathie Powers on 11-10-2024 Lymphocytes/100 WBC Auto (Unsp spec) 6.6 % Low 19-41 [facility] BUN/creatinine ratioOrdered By: Kathie Powers on 11-10-2024 Urea nitrogen/Creatinine [Mass ratio] 16.6 mg/mg 10-20 [facility] BUN/creatinine ratio 16.6 RATIO 10-20 [facility] Bacteria LM.HPF (Urine sed) [#/Area]Ordered By: Kathie Powers on 11-10-2024 Urine sediment bacteria count by microscopy (number/high power field) 2+ /hpf None Seen [facility] Basophil percentageOrdered B y: Kathie Powers on 11-10-2024 Basophils/100 WBC (Bld) 0.5 % 0-1 [facility] Basophil percentage 0.5 % 0-1 [facility] Bilirubin Test strip Ql (U)O rdered By: Kathie Powers on 11-10-2024 Bilirubin Ql (U) Negative Negative [facility] Urine total bilirubin detection by test strip Negative Negative [facility] Bilirubin, totalOrdered By: Kathie Powers on 11-10-2024 Bilirubin [Mass/Vol] 2.09 mg/dL High 0.00-1.30 [facility] Bilirubin, total 2.09 mg/dL High 0.00-1.30 [facility] Calcium [Mass/Vol]Ordered By : Kathie Powers on 11-10-2024 Serum or plasma calcium measurement (mass/volume) 9.2 mg/dL 7.6-11.0 [facility] Carbon dioxide, total [Moles /volume] in Central venous bloodOrdered By: Kathei Powers on 11-10-2024 CO2 [Moles/Vol] 13.3 mmol/L Low 21.0-32.0 [facility] Carbon dioxide, total [Moles/volume] in Central venous blood 13.3 mmol/L Low 21.0-32.0 [facility] Chloride assayOrdered By: Paulette Powers on 11-10-2024 Chloride [Moles/Vol] 99 mmol/L 98-108 [facility] Chloride assay 99 mmol/L 98-108 [facility] Clarity (U)Ordered By: Kathie Powers on 11-10-2024 Urine clarity Turbid Clear [facility] Color (U)Ordered By: Kathie lucas on 11-10-2024 Urine color determination Brown Yellow [facility] Creatinine [Mass/Vol]Ordered By: Kathie Powers on 11-10-2024 Serum creatinine measurement (mass/volume) 1.13 mg/dL 0.70-1.20 [facility] Eosinophil percentageOrdered By: Kathie Powers on 11-10-2024 Eosinophils/100 WBC (Bld) 1.9 % 0-5 [facility] Eosinophil percentage 1.9 % 0-5 [facility] Erythrocyte distribution wid th (RBC) [Ratio]Ordered By: Kathie Powers on 11-10-2024 Erythrocyte distribution width ratio 18.1 % High 11.6-14.6 [facility] Erythrocyte distribution width standard deviation 62.1 fl High 35.1-43.9 [facility] Erythrocyte distribution wid th ratioOrdered By: Kathie Powers on 11-10-2024 Erythrocyte distribution width (RBC) [Ratio] 18.1 % High 11.6-14.6 [facility] Erythrocyte distribution wid th standard deviationOrdered By: Kathie Powers on 11-10-2024 Erythrocyte distribution width (RBC) [Ratio] 62.1 fl High 35.1-43.9 [facility] Estimation of creatinine carol[place] aranceOrdered By: Kathie Powers on 11-10-2024 Estimation of creatinine clearance 88.23 ml/min 50-250 [facility] GFR/1.73 sq M.predicted niki g non-blacks MDRD (S/P/Bld) [Vol rate/Area]Ordered By: Kathie Powers on 11-10-2024 Glomerular filtration rate (GFR) estimation/1.73 sq m using serum, plasma, or whole b 75 >60 [facility] Glomerular filtration rate ( GFR) estimation/1.73 sq m using serum, plasma, or whole bOrdered By: Kathie Powers on 11-10-2024 GFR/1.73 sq M.predicted among non-blacks MDRD (S/P/Bld) [Vol rate/Area] 75 mL/min/{1.73_m2} >60 [facility] Glucose Ql (U)Ordered By: Paulette Powers on 11-10-2024 Urine glucose detection Normal mg/dl Normal [facility] Glucose [Mass/Vol]Ordered By : Kathie Powers on 11-10-2024 Serum glucose measurement (mass/volume) 298 mg/dL High 70-99 [facility] Glucose measurement at bedsi deOrdered By: Kathie Powers on 11-10-2024 Glucose [Mass/Vol] 265 mg/dL High 74-106 [facility] Glucose measurement at bedside 265 mg/dL High 74-106 [facility] Hematocrit Auto (Bld) [Volum e fraction]Ordered By: Kathie Powers on 11-10-2024 Hematocrit (Bld) [Volume fraction] 32.9 % Low 40-54 [facility] Automated blood hematocrit (percentage) 32.9 % Low 40-54 [facility] Hemoglobin measurementOrdere d By: Kathie Powers on 11-10-2024 Hemoglobin (Bld) [Mass/Vol] 11.3 g/dL Low 13.0-16.5 [facility] Hemoglobin measurement 11.3 g/dL Low 13.0-16.5 [facility] Immature granulocytes/100 WB C Auto (Bld)Ordered By: Kathie Powers on 11-10-2024 Immature granulocytes/100 WBC (Bld) 1.100 % High 0.0-0.9 [facility] Automated immature granulocyte percentage 1.100 % High 0.0-0.9 [facility] International normalized rat io (INR) calculationOrdered By: Kathie Powers on 11-10-2024 International normalized ratio (INR) calculation 3.1 [facility] Ketones Test strip Ql (U)Ord ered By: Kathie Powers on 11-10-2024 Ketones Ql (U) 5 mg/dl High Negative [facility] Urine ketones detection by test strip 5 mg/dl High Negative [facility] Leukocyte esterase Test stri p Ql (U)Ordered By: Kathie Powers on 11-10-2024 Urine leukocyte esterase detection by dipstick 500 /ul High Negative [facility] Lymphocytes Auto (Unsp spec) [#/Vol]Ordered By: Kathie Powers on 11-10-2024 Absolute lymphocyte count 1.30 X10^3/uL 0.83-4.51 [facility] Lymphocytes/100 WBC Auto (Un sp spec)Ordered By: Kathie Powers on 04-09-2025 Automated lymphocyte count as percentage of total leukocytes 6.6 % Low 19-41 [facility] MCV (RBC) [Entitic vol]Order ed By: Kathie Powers on 11-10-2024 MCV (mean corpuscular volume) determination 92.7 fL 80-94 [facility] MCV (mean corpuscular volume ) determinationOrdered By: Kathie Powers on 11-10-2024 MCV (RBC) [Entitic vol] 92.7 fL 80-94 [facility] Mean corpuscular hemoglobin (MCH) determinationOrdered By: Kathie Powers on 11-10-2024 MCH (RBC) [Entitic mass] 31.8 pg 27.0-32.0 [facility] Mean corpuscular hemoglobin (MCH) determination 31.8 pg 27.0-32.0 [facility] Mean corpuscular hemoglobin concentration (MCHC) determinationOrdered By: Kathie Powers on 11-10-2024 Mean corpuscular hemoglobin concentration (MCHC) determination 34.3 g/dL 32-36 [facility] Mean platelet volume determi nationOrdered By: Kathie Powers on 11-10-2024 Mean platelet volume determination 12.2 fl High 6.2-12.0 [facility] Microscopic analysis of urin e for red blood cells (RBC)Ordered By: Kathie Powers on 11-10-2024 Microscopic analysis of urine for red blood cells (RBC) > 100 SEEN /hpf 0-5 [facility] Monocyte percentageOrdered B y: Kathie Powers on 11-10-2024 Monocytes/100 WBC (Bld) 6.9 % 0-10 [facility] Monocyte percentage 6.9 % 0-10 [facility] Mucus LM Ql (Urine sed)Order ed By: Kathie Powers on 11-10-2024 Mucus Ql (Urine sed) 0 SEEN /hpf [facility] Neutrophil percentageOrdered By: Kathie Powers on 11-10-2024 Neutrophils/100 WBC (Bld) 83.0 % High 47-70 [facility] Neutrophil percentage 83.0 % High 47-70 [facility] Nitrite Test strip Ql (U)Ord ered By: Kathie Powers on 11-10-2024 Nitrite Ql (U) Positive High Negative [facility] Urine nitrite test by dipstick Positive High Negative [facility] No Panel InformationOrdered By: Kathie Powers on 11-10-2024 58 U/L High <38 [facility] Nucleated red blood cell per centageOrdered By: Kathie Powers on 11-10-2024 Nucleated red blood cell percentage 0 % 0-5 [facility] Platelet countOrdered By: Paulette Powers on 11-10-2024 Platelets (Bld) [#/Vol] 58 10*3/uL Low 150-450 [facility] Platelet count 58 K/mm3 Low 150-450 [facility] Potassium (Unsp spec) [Mass/ Vol]Ordered By: Kathie Powers on 11-10-2024 Potassium measurement (mass/volume) 3.6 mmol/L 3.3-5.1 [facility] Potassium measurement (mass/ volume)Ordered By: Kathie Powers on 11-10-2024 Potassium (Unsp spec) [Mass/Vol] 3.6 mmol/L 3.3-5.1 [facility] Protein Test strip Ql (U)Ord ered By: Kathie Powers on 11-10-2024 Protein Ql (U) 500 mg/dl High Negative [facility] Urine protein assay by test strip, semi-quantitative 500 mg/dl High Negative [facility] Prothrombin timeOrdered By: Kathie Powers on 11-10-2024 PT Coag (PPP) [Time] 32.3 s High 11.7-14.9 [facility] Prothrombin time 32.3 SECONDS High 11.7-14.9 [facility] RBC Auto (Bld) [#/Vol]Ordere d By: Kathie Powers on 11-10-2024 RBC (Bld) [#/Vol] 3.55 10*6/uL Low 4.6-6.2 [facility] Automated blood erythrocyte count 3.55 M/mm3 Low 4.6-6.2 [facility] Serum creatinine measurement (mass/volume)Ordered By: Kathie Powers on 11-10-2024 Creatinine [Mass/Vol] 1.13 mg/dL 0.70-1.20 [facility] Serum globulin measurementOr dered By: Kathie Powers on 11-10-2024 Globulin (S) [Mass/Vol] 3.4 g/dL 2.2-4.2 [facility] Serum globulin measurement 3.4 g/dL 2.2-4.2 [facility] Serum glucose measurement (m ass/volume)Ordered By: Kathie Powers on 11-10-2024 Glucose [Mass/Vol] 298 mg/dL High 70-99 [facility] Serum or plasma alanine thomas otransferase (ALT) measurementOrdered By: Kathie Powers on 11-10-2024 ALT [Catalytic activity/Vol] 36 U/L <47 [facility] Serum or plasma albumin roosevelt urement (mass/volume)Ordered By: Kathie Powers on 11-10-2024 Albumin [Mass/Vol] 2.3 g/dL Low 3.5-5.0 [facility] Serum or plasma albumin/glob ulin mass ratioOrdered By: Kathie Powers on 11-10-2024 Albumin/Globulin [Mass ratio] 0.7 {ratio} Low 0.9-2.4 [facility] Serum or plasma alkaline kendrick sphatase measurementOrdered By: Kathie Powers on 11-10-2024 ALP [Catalytic activity/Vol] 310 U/L High 40-129 [facility] Serum or plasma calcium roosevelt urement (mass/volume)Ordered By: Kathie Powers on 11-10-2024 Calcium [Mass/Vol] 9.2 mg/dL 7.6-11.0 [facility] Serum or plasma urea nitroge n measurement (mass/volume)Ordered By: Kathie Powers on 11-10-2024 Urea nitrogen [Mass/Vol] 19 mg/dL 4-19 [facility] Sodium levelOrdered By: Javed Powers on 11-10-2024 Sodium [Moles/Vol] 123 mmol/L Low 133-145 [facility] Sodium level 123 mmol/L Low 133-145 [facility] Specific gravity (U) [Rel de nsity]Ordered By: Kathie Powers on 11-10-2024 Urine specific gravity measurement 1.015 1.002-1.030 [facility] Squamous epithelial cells de tection in urine sediment by light microscopyOrdered By: Kathie Powers on 11-10-2024 Epithelial cells.squamous LM Ql (Urine sed) 0 SEEN /hpf 0-5 [facility] Squamous epithelial cells detection in urine sediment by light microscopy 0 SEEN /hpf [facility] Total proteinOrdered By: Tyree Powers on 11-10-2024 Protein [Mass/Vol] 5.7 g/dL Low 5.9-8.4 [facility] Total protein 5.7 g/dL Low 5.9-8.4 [facility] Urea nitrogen [Mass/Vol]Orde red By: Kathie Powers on 11-10-2024 Serum or plasma urea nitrogen measurement (mass/volume) 19 mg/dL 4-19 [facility] Urine blood detectionOrdered By: Kathie Powers on 11-10-2024 Urine blood detection 250 /ul High Negative [facility] Urine clarityOrdered By: Tyree Powers on 11-10-2024 Clarity (U) Turbid Clear [facility] Urine color determinationOrd ered By: Kathie Powers on 11-10-2024 Color (U) Brown Yellow [facility] Urine glucose detectionOrder ed By: Kathie Powers on 11-10-2024 Glucose Ql (U) Normal mg/dl Normal [facility] Urine leukocyte esterase det ection by dipstickOrdered By: Kathie Powers on 11-10-2024 Leukocyte esterase Test strip Ql (U) 500 /ul High Negative [facility] Urine pHOrdered By: Kathie garcias on 11-10-2024 pH (U) 6.5 [pH] 5.0 - 8.0 [facility] Urine sediment bacteria coun t by microscopy (number/high power field)Ordered By: Kathie Powers on 11-10-2024 Bacteria LM.HPF (Urine sed) [#/Area] 2 /[HPF] None Seen [facility] Urine specific gravity measu rementOrdered By: Kathie Powers on 11-10-2024 Specific gravity (U) [Rel density] 1.015 1.002-1.030 [facility] Urine urobilinogen measureme ntOrdered By: Kathie Powers on 11-10-2024 Urobilinogen Ql (U) 1 mg/dl High Normal [facility] Urobilinogen Ql (U)Ordered B y: Kathie Powers on 11-10-2024 Urine urobilinogen measurement 1 mg/dl High Normal [facility] White blood cell (WBC) count Ordered By: Kathie Powers on 04-09-2025 WBC (Bld) [#/Vol] 19.6 10*3/uL High 4.4-11.0 [facility] White blood cell (WBC) count 19.6 K/mm3 High 4.4-11.0 [facility] White blood cell countOrdere d By: Kathie Powers on 11-10-2024 White blood cell count 5-10 SEEN /hpf 0-5 [facility] White blood cell count 5-10 SEEN /hpf 0-5 [facility] pH (U)Ordered By: Kathie Jaffe ce on 11-10-2024 Urine pH 6.5 5.0 - 8.0 [facility] Blood manual differential co mment interpretation (narrative result)Ordered By: Kathie Powers on 11-09-2024 Manual differential comment Marco Antonio (Bld) [Interp] SCANNED [facility] Lactic acid measurementOrder ed By: Kathie Powers on 11-09-2024 Lactic acid measurement 2.4 mmol/L High 0.0-2.0 [facility] Manual differential comment Marco Antonio (Bld) [Interp]Ordered By: Kathie Powers on 11-09-2024 Blood manual differential comment interpretation (narrative result) SCANNED [facility] Pathologist review Marco Antonio (Unsp spec) [Interp]Ordered By: Kathie Powers on 11-09-2024 Review by pathologist N/A [facility] Platelet estimateOrdered By: Kathie Powers on 11-09-2024 Platelets LM Ql (Bld) MKD DEC [facility] Platelets LM Ql (Bld)Ordered By: Kathie Powers on 11-09-2024 Platelet estimate MKD DEC [facility] Review by pathologistOrdered By: Kathie Powers on 11-09-2024 Pathologist review Marco Antonio (Unsp spec) [Interp] N/A [facility] Venous blood ammonia measure mentOrdered By: Kathie Powers on 11-09-2024 Ammonia (P) [Moles/Vol] 104.0 umol/L High 16-60 [facility] Venous blood ammonia measurement 104.0 umol/L High 16-60 [facility] Lipase measurementOrdered By : Kathie Powers on 11-08-2024 Lipase measurement 94 U/L High 13-75 [facility] Magnesium (Unsp spec) [Mass/ Vol]Ordered By: Kathie Powers on 11-08-2024 Magnesium measurement (mass/volume) 2.4 mg/dL High 1.5-2.2 [facility] Magnesium measurement (mass/ volume)Ordered By: Kathie Powers on 11-08-2024 Magnesium (Unsp spec) [Mass/Vol] 2.4 mg/dL High 1.5-2.2 [facility] Serum phosphorus measurement Ordered By: Kathie Powers on 11-08-2024 Serum phosphorus measurement 1.6 mg/dL Low 2.7-4.5 [facility] Blood polychromasia detectio n by light microscopyOrdered By: Hill Acuña on 11-07-2024 Polychromasia LM Ql (Bld) 1+ [facility] Blood polychromasia detection by light microscopy 1+ [facility] Ovalocyte detectionOrdered B y: Hill Acuña on 11-07-2024 Ovalocytes LM Ql (Bld) 1+ [facility] Band form neutrophils/100 WB C (Bld)Ordered By: Hill Acuña on 11-03-2024 Blood band neutrophil count as percentage of total leukocytes 6 % High 0-5 [facility] Blood band neutrophil count as percentage of total leukocytesOrdered By: Hill Acuña on 11-03-2024 Band form neutrophils/100 WBC (Bld) 6 % High 0-5 [facility] Blood eosinophils/100 leukoc ytesOrdered By: Hill Acuña on 11-03-2024 Eosinophils/100 WBC (Bld) 1 % 0-5 [facility] Blood lymphocytes/100 leukoc ytesOrdered By: Hill Acuña on 11-03-2024 Lymphocytes/100 WBC (Bld) 2 % Low 19-41 [facility] Blood lymphocytes/100 leukocytes 2 % 0-10 [facility] Blood metamyelocytes/100 bri kocytesOrdered By: Hill Acuña on 11-03-2024 Metamyelocytes/100 WBC (Bld) 1 % 0-1 [facility] Blood metamyelocytes/100 leukocytes 1 % 0-5 [facility] Blood monocytes/100 leukocyt esOrdered By: Hill Acuña on 11-03-2024 Monocytes/100 WBC (Bld) 2 % 0-10 [facility] Blood segmented neutrophils/ 100 leukocytesOrdered By: Hill Acuña on 11-03-2024 Segmented neutrophils/100 WBC (Bld) 85 % High 47-70 [facility] Cells counted Molgen (Bld/Ti ss) [#]Ordered By: Hill Acuña on 11-03-2024 Total cell count 100 MANUAL DIFF [facility] Segmented neutrophils/100 WB C (Bld)Ordered By: Hill Acuña on 11-03-2024 Blood segmented neutrophils/100 leukocytes 85 % High 47-70 [facility] Total cell countOrdered By: Hill Acuña on 11-03-2024 Cells counted Molgen (Bld/Tiss) [#] 100 MANUAL DIFF [facility] Erythrocyte morphology asses smentOrdered By: Hill Acuña on 11-02-2024 RBC morphology finding Nom (Bld) NORM C+C NORMAL NORM C&C [facility] RBC morphology finding Nom ( Bld)Ordered By: Hill Acuña on 11-02-2024 Erythrocyte morphology assessment NORM C+C NORMAL NORM C&C [facility] Trough vancomycin levelOrder ed By: Buster Fuchs on 11-01-2024 Vancomycin trough [Mass/Vol] 17.7 ug/mL High 5.0-15.0 [facility] Vancomycin trough [Mass/Vol] Ordered By: Buster Fuchs on 11-01-2024 Trough vancomycin level 17.7 ug/mL High 5.0-15.0 [facility] Activated partial thrombopla stin time (aPTT) in platelet poor plasma by coagulation aOrdered By: Buster Fuchs on 10-31-2024 aPTT Coag (PPP) [Time] 42.7 s High 24.1-36.2 [facility] aPTT Coag (PPP) [Time]Ordere d By: Buster Fuchs on 10-31-2024 Activated partial thromboplastin time (aPTT) in platelet poor plasma by coagulation a 42.7 Seconds High 24.1-36.2 [facility] C. difficile Ql (Stl)Ordered By: Hill Wright on 10-30-2024 Stool Clostridium difficile detection Toxigenic C. difficile Abnormal [facility] Clostridium difficile detect ion by polymerase chain reactionOrdered By: Hill Wright on 10-30-2024 C. difficile DNA ANANTH+probe Ql (Unsp spec) [facility] Stool Clostridium difficile detectionOrdered By: Hill Wright on 10-30-2024 C. difficile Ql (Stl) Toxigenic C. difficile Abnormal [facility] Stool lactoferrin detection by immunoassayOrdered By: Hill Wright on 10-30-2024 Lactoferrin IA Ql (Stl) [facility] Arterial patency Wrist arter y --pre arterial punctureOrdered By: Buster Fuchs on 10-29-2024 Assessment of wrist artery patency prior to arterial puncture Positive [facility] Assessment of wrist artery p atency prior to arterial punctureOrdered By: Buster Fuchs on 10-29-2024 Arterial patency Wrist artery --pre arterial puncture Positive [facility] Base excess Calc (BldV) [Mol es/Vol]Ordered By: Buster Fuchs on 10-29-2024 Blood base excess determination -10 mmol/L [facility] Blood base excess determinat ionOrdered By: Buster Fuchs on 10-29-2024 Base excess Calc (BldV) [Moles/Vol] -10 mmol/L [facility]22 [facility] Blood bicarbonate measuremen tOrdered By: Buster Fuchs on 10-29-2024 HCO3 (Bld) [Moles/Vol] 15.2 mmol/L Low 22-26 [facility] Blood bicarbonate measurement 15.2 mmol/L Low 22-26 [facility] Blood cultureOrdered By: Hugo Wright on 10-29-2024 Bacteria identified Cx Nom (Bld) No growth in 5 days. [facility] Blood culture No growth in 5 days. [facility] Calculated very low density lipoprotein (VLDL) cholesterol measurementOrdered By: Hill Wright on 10-29-2024 Calculated very low density lipoprotein (VLDL) cholesterol measurement 17 mg/dL 5-40 [facility] Calculated very low density lipoprotein (VLDL) cholesterol measurement 17 mg/dL 5-40 [facility] Cholesterol [Mass/Vol]Ordere d By: Hill Wright on 10-29-2024 Serum or plasma cholesterol measurement (mass/volume) 132 mg/dL <201 [facility] Cholesterol in HDL [Mass/Vol ]Ordered By: Hill Wright on 10-29-2024 Serum or plasma cholesterol in HDL measurement (mass/volume) 33 mg/dL Low >40 [facility] Determination of fraction of inspired oxygenOrdered By: Buster Fuchs on 10-29-2024 Determination of fraction of inspired oxygen 21.0 [facility] Electrocardiogram reportOrde red By: Jeovanny Ramos on 10-29-2024 EKG study [facility] Other Phone: LDL calc ser/plasOrdered By: Hill Wright on 10-29-2024 Cholesterol in LDL [Mass/Vol] 83 mg/dL [facility] Measurement, pHOrdered By: Stacy Fuchs on 10-29-2024 pH (Unsp spec) 7.39 [pH] 7.35-7.45 [facility] No Panel InformationOrdered By: Buster Fuchs on 10-29-2024 ART [facility] L Radial [facility] Not entered [facility] Room Air [facility] No Panel InformationOrdered By: Hill Wright on 10-29-2024 10.20 ug/dL 6.02-18.40 [facility] Osmolality, serumOrdered By: Hill Wright on 10-29-2024 Osmolality, serum 292 mOsm/KG 275-295 [facility] Oxygen saturation measuremen tOrdered By: Buster Fuchs on 10-29-2024 Oxygen saturation measurement 93 % Low 95-99 [facility] Partial pressure of carbon d ioxide measurementOrdered By: Buster Fuchs on 10-29-2024 Partial pressure of carbon dioxide measurement 25.1 mmHg Low 35-45 [facility] Partial pressure of oxygen m easurementOrdered By: Buster Fuchs on 10-29-2024 Partial pressure of oxygen measurement 67 mmHG Low 75-100 [facility] Screening total cholesterol/ high density lipoprotein (HDL) cholesterol ratioOrdered By: Hill Wright on 10-29-2024 Screening total cholesterol/high density lipoprotein (HDL) cholesterol ratio 4.04 [facility] Serum or plasma cholesterol in HDL measurement (mass/volume)Ordered By: Hill Wright on 10-29-2024 Cholesterol in HDL [Mass/Vol] 33 mg/dL Low >40 [facility] Serum or plasma cholesterol measurement (mass/volume)Ordered By: Hill Wright on 10-29-2024 Cholesterol [Mass/Vol] 132 mg/dL <201 [facility] Total carbon dioxide measure mentOrdered By: Buster Fuchs on 10-29-2024 CO2 [Moles/Vol] 16 mmol/L [facility] Total carbon dioxide measurement 16 mmol/L [facility] Triglycerides measurementOrd ered By: Hill Wright on 10-29-2024 Triglycerides measurement 83 mg/dL [facility] Urine cultureOrdered By: Viraj Dunn on 10-29-2024 Bacteria identified Cx Nom (U) Culture exhibits no growth. [facility] Urine culture Culture exhibits no growth. [facility] pH (Unsp spec)Ordered By: Marianna Fuchs on 10-29-2024 Measurement, pH 7.39 7.35-7.45 [facility] Absolute neutrophil countOrd ered By: Alber Dunn on 10-28-2024 Neutrophils (Bld) [#/Vol] 19.0 10*3/uL High 2.0-7.7 [facility] Amorphous sediment LM Ql (Ur ine sed)Ordered By: Alber Dunn on 10-28-2024 Amorphous sediment detection in urine sediment by light microscopy 1+ URATE [facility] Amorphous sediment detection in urine sediment by light microscopyOrdered By: Alber Dunn on 10-28-2024 Amorphous sediment LM Ql (Urine sed) 1+ URATE [facility] Anion gap in Serum or Plasma Ordered By: Alber Dunn on 10-28-2024 Anion gap [Moles/Vol] 17 mmol/L High 5-15 [facility] BUN/creatinine ratioOrdered By: Alber Dunn on 10-28-2024 Urea nitrogen/Creatinine [Mass ratio] 18.8 mg/mg 10-20 [facility] Basophil percentageOrdered B y: Alber Dunn on 10-28-2024 Basophils/100 WBC (Bld) 0.2 % 0-1 [facility] Bilirubin Test strip Ql (U)O rdered By: Alber Dunn on 10-28-2024 Bilirubin Ql (U) 1 mg/dL High Negative [facility] Comment on above: COLOR OF URINE MAY A FFECT DIPSTICK RESULTS. Bilirubin, totalOrdered By: Alber Dunn on 10-28-2024 Bilirubin [Mass/Vol] 1.86 mg/dL High 0.00-1.30 [facility] Carbon dioxide, total [Moles /volume] in Central venous bloodOrdered By: Alber Dunn on 10-28-2024 CO2 [Moles/Vol] 12.4 mmol/L Low 21.0-32.0 [facility] Chloride assayOrdered By: Hernesto Dunn on 10-28-2024 Chloride [Moles/Vol] 98 mmol/L 98-108 [facility] Eosinophil percentageOrdered By: Alber Dunn on 10-28-2024 Eosinophils/100 WBC (Bld) 1.4 % 0-5 [facility] Epithelial cells.squamous LM Ql (Urine sed)Ordered By: Alber Dunn on 10-28-2024 Epithelial cells.squamous LM.HPF (Urine sed) [#/Area] 5 /[HPF] 0-5 [facility] Erythrocyte distribution wid th ratioOrdered By: Alber Dunn on 10-28-2024 Erythrocyte distribution width (RBC) [Ratio] 19.1 % High 11.6-14.6 [facility] Erythrocyte distribution wid th standard deviationOrdered By: Alber Dunn on 10-28-2024 Erythrocyte distribution width (RBC) [Entitic vol] 62.7 fL High 35.1-43.9 [facility] GFR/1.73 sq M.predicted niki g non-blacks MDRD (S/P/Bld) [Vol rate/Area]Ordered By: Alber Dunn on 10-28-2024 Estimated GFR (MDRD) Non-Af Amer 62 >60 [facility] Comment on above: mL/min/1.73m2 CKD-EP I Creatinine Equation (2020) Glucose Ql (U)Ordered By: Hernesto Dunn on 10-28-2024 Glucose (U) [Mass/Vol] 50 mg/dL High Normal [facility] HbA1c (Bld) [Mass fraction]O rdered By: Hill Wright on 10-28-2024 Hemoglobin A1c percentage 6.7 % >5.7 [facility] Hematocrit Auto (Bld) [Volum e fraction]Ordered By: Alber Dunn on 10-28-2024 Hematocrit (Bld) [Volume fraction] 37.3 % Low 40-54 [facility] Hemoglobin A1c percentageOrd ered By: Hill Wright on 10-28-2024 HbA1c (Bld) [Mass fraction] 6.7 % >5.7 [facility] Hemoglobin measurementOrdere d By: Alber Dunn on 10-28-2024 Hemoglobin (Bld) [Mass/Vol] 12.7 g/dL Low 13.0-16.5 [facility] Immature granulocytes/100 WB C Auto (Bld)Ordered By: Alber Dunn on 10-28-2024 Immature granulocytes/100 WBC (Bld) 1.400 % High 0.0-0.9 [facility] Comment on above: IG% - Immature Granu locytes (promyelocytes, myelocytes and metamyelocytes) > 1% indicates that a LEFT SHIFT is Present. Ketones Test strip Ql (U)Ord ered By: Alber Dunn on 10-28-2024 Ketones Ql (U) 5 mg/dl High Negative [facility] Laboratory - Chemistry and C hemistry - challengeOrdered By: Alber Dunn on 10-28-2024 AST [Catalytic activity/Vol] 48 U/L High <38 [facility] Comment on above: Hemolysis present, R esults could be affected. Laboratory - Hematology and Cell countsOrdered By: Alber Dunn on 10-28-2024 Anisocytosis Ql (Bld) RARE [facility] Lactic acid measurementOrder ed By: Alber Dunn on 10-28-2024 Lactate [Moles/Vol] 4.0 mmol/L High 0.0-2.0 [facility] Comment on above: Critical Result(s) C alled [...] 10-28-2024 Lipase [Catalytic activity/Vol] 45 U/L 13-75 [facility] Comment on above: Please note:LIPASE r evised reference range effective 22. New Lipase methodology. Expected to produce lower values than the previous assay method. NEW Reference Range: 13 - 75 U/L Lymphocytes Auto (Unsp spec) [#/Vol]Ordered By: Alber Dunn on 10-28-2024 Lymphocytes (Bld) [#/Vol] 1.28 10*3/uL 0.83-4.51 [facility] Lymphocytes/100 WBC Auto (Un sp spec)Ordered By: Alber Dunn on 10-28-2024 Lymphocytes/100 WBC (Bld) 5.6 % Low 19-41 [facility] MCV (mean corpuscular volume ) determinationOrdered By: Alber Dunn on 10-28-2024 MCV (RBC) [Entitic vol] 91.2 fL 80-94 [facility] Macrocytes Ql (Bld)Ordered B y: Alber Dunn on 10-28-2024 Macrocytosis RARE [facility] Macrocytes detection RARE [facility] Macrocytes detectionOrdered By: Alber Dunn on 10-28-2024 Macrocytes Ql (Bld) RARE [facility] Manual differential comment Marco Antonio (Bld) [Interp]Ordered By: Alber Dunn on 10-28-2024 Differential Comment SEE COMMENT [facility] Comment on above: MONOCYTOSIS NOTED Mean corpuscular hemoglobin (MCH) determinationOrdered By: Alber Dunn on 10-28-2024 MCH (RBC) [Entitic mass] 31.1 pg 27.0-32.0 [facility] Mean corpuscular hemoglobin concentration (MCHC) determinationOrdered By: Abler Dunn on 10-28-2024 MCHC (RBC) [Mass/Vol] 34.0 g/dL 32-36 [facility] Mean platelet volume determi nationOrdered By: Alber Dunn on 10-28-2024 Platelet mean volume (Bld) [Entitic vol] 12.0 fL 6.2-12.0 [facility] Microscopic analysis of urin e for red blood cells (RBC)Ordered By: Alber Dunn on 10-28-2024 Urine RBC > 100 SEEN /hpf 0-5 [facility] Monocyte percentageOrdered B y: Alber Dunn on 10-28-2024 Monocytes/100 WBC (Bld) 8.4 % 0-10 [facility] Mucus LM Ql (Urine sed)Order ed By: Alber Dunn on 10-28-2024 Mucus Ql (Urine sed) 0 SEEN /hpf [facility] Neutrophil percentageOrdered By: Alber Dunn on 10-28-2024 Neutrophils/100 WBC (Bld) 83.0 % High 47-70 [facility] Nitrite Test strip Ql (U)Ord ered By: Alber Dunn on 10-28-2024 Nitrite Ql (U) Negative Negative [facility] Nucleated red blood cell per centageOrdered By: Alber Dunn on 10-28-2024 Nucleated RBC/100 WBC (Bld) [Ratio] 0 % 0-5 [facility] Osmolality (U) [Osmolality]O rdered By: Hill Wright on 10-28-2024 Osmolality ur 484 mOsm/KG >50 [facility] Osmolality urOrdered By: Hugo Wright on 10-28-2024 Osmolality (U) [Osmolality] 484 mOsm/KG >50 [facility] Ovalocytes LM Ql (Bld)Ordere d By: Alber Dunn on 10-28-2024 Ovalocytes RARE [facility] Pathologist review Marco Antonio (Unsp spec) [Interp]Ordered By: Alber Dunn on 10-28-2024 Differential Pathologist's Review May [facility] Platelet countOrdered By: Hernesto Dunn on 10-28-2024 Platelets (Bld) [#/Vol] 142 10*3/uL Low 150-450 [facility] Platelets LM Ql (Bld)Ordered By: Alber Dunn on 10-28-2024 Platelet Estimate ADEQUATE ADEQ [facility] Potassium (Unsp spec) [Mass/ Vol]Ordered By: Alber Dunn on 10-28-2024 Potassium [Moles/Vol] 4.5 mmol/L 3.3-5.1 [facility] Comment on above: Hemolysis present, R esults could be affected. Protein Test strip Ql (U)Ord ered By: Alber Dunn on 10-28-2024 Protein Ql (U) 500 mg/dl High Negative [facility] RBC Auto (Bld) [#/Vol]Ordere d By: Alber Dunn on 10-28-2024 RBC (Bld) [#/Vol] 4.09 10*6/uL Low 4.6-6.2 [facility] RBC morphology finding Nom ( Bld)Ordered By: Alber Dunn on 10-28-2024 Red Blood Cell Morphology N CHROM NORMAL NORM C&C [facility] Serum creatinine measurement (mass/volume)Ordered By: Alber Dunn on 10-28-2024 Creatinine [Mass/Vol] 1.33 mg/dL High 0.70-1.20 [facility] Serum globulin measurementOr dered By: Alber Dunn on 10-28-2024 Globulin (S) [Mass/Vol] 3.4 g/dL 2.2-4.2 [facility] Serum glucose measurement (m ass/volume)Ordered By: Alber Dunn on 10-28-2024 Glucose [Mass/Vol] 338 mg/dL High 70-99 [facility] Serum or plasma alanine thomas otransferase (ALT) measurementOrdered By: Alber Dunn on 10-28-2024 ALT [Catalytic activity/Vol] 23 U/L <47 [facility] Serum or plasma albumin roosevelt urement (mass/volume)Ordered By: Alber Dunn on 10-28-2024 Albumin [Mass/Vol] 2.5 g/dL Low 3.5-5.0 [facility] Serum or plasma albumin/glob ulin mass ratioOrdered By: Alber Dunn on 10-28-2024 Albumin/Globulin [Mass ratio] 0.7 {ratio} Low 0.9-2.4 [facility] Serum or plasma alkaline kendrick sphatase measurementOrdered By: Alber Dunn on 10-28-2024 ALP [Catalytic activity/Vol] 274 U/L High 40-129 [facility] Serum or plasma calcium roosevelt urement (mass/volume)Ordered By: Alber Dunn on 10-28-2024 Calcium [Mass/Vol] 9.2 mg/dL 7.6-11.0 [facility] Serum or plasma urea nitroge n measurement (mass/volume)Ordered By: Alber Dunn on 10-28-2024 Urea nitrogen [Mass/Vol] 25 mg/dL High 4-19 [facility] Sodium levelOrdered By: Alber Dunn on 10-28-2024 Sodium [Moles/Vol] 128 mmol/L Low 133-145 [facility] Total proteinOrdered By: Viraj Dunn on 10-28-2024 Protein [Mass/Vol] 5.9 g/dL 5.9-8.4 [facility] Urine blood detectionOrdered By: Alber Dunn on 10-28-2024 Urine Occult Blood 250 /ul High Negative [facility] Urine clarityOrdered By: Viraj Dunn on 10-28-2024 Clarity (U) Cloudy Clear [facility] Urine color determinationOrd ered By: Alber Dunn on 10-28-2024 Color (U) Red Yellow [facility] Urine leukocyte esterase det ection by dipstickOrdered By: Alber Dunn on 10-28-2024 Leukocyte esterase Test strip Ql (U) 500 /ul High Negative [facility] Urine pHOrdered By: Alber grajeda on 10-28-2024 pH (U) 6.5 [pH] 5.0 - 8.0 [facility] Urine sediment bacteria coun t by microscopy (number/high power field)Ordered By: Alber Dunn on 10-28-2024 Bacteria LM.HPF (Urine sed) [#/Area] 1 /[HPF] None Seen [facility] Urine specific gravity measu rementOrdered By: Alber Dunn on 10-28-2024 Specific gravity (U) [Rel density] 1.015 1.002-1.030 [facility] Urobilinogen Ql (U)Ordered B y: Alber Dunn on 10-28-2024 Urine Urobilinogen Normal mg/dl Normal [facility] White blood cell (WBC) count Ordered By: Alber Dunn on 10-28-2024 WBC (Bld) [#/Vol] 22.9 10*3/uL High 4.4-11.0 [facility] White blood cell countOrdere d By: Alber Dunn on 10-28-2024 Urine WBC >100 SEEN /hpf 0-5 [facility] APTTon 10-04-2024 aPTT Coag (PPP) [Time] [address] [facility] Albuminon 10-04-2024 Albumin (Body fld) [Mass/Vol] <0.5 Normal Not established [facility] Comment on above: Order Comment: Venip uncture immediately after or during the administration of Metamizole may lead to falsely low results. Testing should be performed immediately prior to Metamizole dosing. Performed By: #### 2 524-7 #### MIREYA SHAH ([id number]) [facility] ([facility]) [address] [place] [address] 89119 Bacteria identifiedon 2024 Bacteria identified Cx Nom (Body fld) Test: Sterile Fluid Culture/Smear Specimen Source: Pleural Specimen Type: Fluid Specimen Date: 10/04/20241713 Result Date: 10/08/2024824 Result Status: Final result Resulting Lab: [facility] [address] [place] [address] CULTURE No growth aerobically and anaerobically STAIN (1+) Rare Polymorphonuclear leukocytes No organisms seen Normal [facility] Comment on above: Performed By: #### 2 524-7 #### MIREYA SHAH ([id number]) [facility] ([facility]) [address] [place] [address] 04827 Basic metabolic 2000 panelon 10-04-2024 Anion gap [Moles/Vol] 8 mmol/L Low 10 - 2 0 mmol/L [facility] Calcium [Mass/Vol] 8.1 mg/dL Low 8.6 - 10. 3 mg/dL [facility] Chloride [Moles/Vol] 109 mmol/L High 98 - 10 7 mmol/L [facility] CO2 [Moles/Vol] 24 mmol/L 21 - 32 mmol/L [facility] Creatinine [Mass/Vol] 0.73 mg/dL 0.50 - 1.30 mg/dL [facility] eGFR - PINF [facility] Comment on above: Calculations of patric mated GFR are performed using the 2020 CKD-EPI Study Refit equation without the race variable for the IDMS-Traceable creatinine methods. https://jasn.asnjournals.org/content/early/ASN.2020 984945 Glucose [Mass/Vol] 197 mg/dL High 74 - 99 mg/dL [facility] Potassium [Moles/Vol] 3.9 mmol/L 3.5 - 5.3 mmol/L [facility] Sodium [Moles/Vol] 137 mmol/L 136 - 145 mmol/L [facility] Urea nitrogen [Mass/Vol] 17 mg/dL 6 - 23 mg/dL [facility] Anion gap [Moles/Vol] 8 mmol/L Low 10-20 [facility] Comment on above: Performed By: #### 2 4321-2 #### MIREYA SHAH ([id number]) [facility] ([facility]) [address] [place] [address] Calcium [Mass/Vol] 8.1 mg/dL Low 8.6-10.3 [facility] Comment on above: Performed By: #### 2 4321-2 #### MIREYA SHAH ([id number]) [facility] ([facility]) [address] [place] [address] 71356 Chloride [Moles/Vol] 109 mmol/L High 98-107 [facility] Comment on above: Performed By: #### 2 4321-2 #### MIREYA SHAH ([id number]) [facility] ([facility]) [facility] [place] [address] CO2 [Moles/Vol] 24 mmol/L Normal 21-32 [facility] Comment on above: Performed By: #### 2 4321-2 #### MIREYA SHAH ([id number]) [facility] ([facility]) [address] [place] [address] 72695 Creatinine [Mass/Vol] 0.73 mg/dL Normal 0.50-1.30 [facility] Comment on above: Performed By: #### 2 4321-2 #### MIREYA SHAH ([id number]) [facility] ([facility]) [address] [place] [address] 56382 GFR/1.73 sq M.predicted MDRD (S/P/Bld) [Vol rate/Area] mL/min/{1.73_m2} Normal >60 [facility] Comment on above: Result Comment: Calc ulations of estimated GFR are performed using the 2020 CKD-EPI Study Refit equation without the race variable for the IDMS-Traceable creatinine methods. https://jasn.asnjournals.org/content/early/ASN.2020 928256 Performed By: #### 2 4321-2 #### MIREYA SHAH ([id number]) [facility] ([facility]) [address] [place] [address] 77898 Glucose [Mass/Vol] 197 mg/dL High 74-99 [facility] Comment on above: Performed By: #### 2 4321-2 #### MIREYA SHAH ([id number]) [facility] ([facility]) [address] [place] [address] 50413 Potassium [Moles/Vol] 3.9 mmol/L Normal 3.5-5.3 [facility] Comment on above: Performed By: #### 2 4321-2 #### MIREYA SHAH ([id number]) [facility] ([facility]) [address] [place] [address] 28731 Sodium [Moles/Vol] 137 mmol/L Normal 136-145 [facility] Comment on above: Performed By: #### 2 4321-2 #### MIREYA SHAH ([id number]) [facility] ([facility]) [address] [place] [address] 10203 Urea nitrogen [Mass/Vol] 17 mg/dL Normal 6-23 [facility] Comment on above: Performed By: #### 2 4321-2 #### MIREYA SHAH ([id number]) [facility] ([facility]) [address] [place] [address] 04309 CBC W Auto Differential pane l (Bld)on 10-04-2024 Basophils (Bld) [#/Vol] 0.02 10*3/uL [facility] Basophils/100 WBC (Bld) 0.4 % 0.0 - 2.0 % [facility] Eosinophils (Bld) [#/Vol] 0.15 10*3/uL [facility] Eosinophils/100 WBC (Bld) 2.7 % 0.0 - 6.0 % [facility] Erythrocyte distribution width (RBC) [Ratio] 22.1 % High 11.5 - 14.5 % [facility] Hematocrit (Bld) [Volume fraction] 29.8 % Low 41.0 - 52.0 % [facility] Hemoglobin (Bld) [Mass/Vol] 9.3 g/dL Low 13.5 - 17.5 g/dL [facility] Immature granulocytes (Bld) [#/Vol] 0.01 10*3/uL [facility] Immature granulocytes/100 WBC (Bld) 0.2 % 0.0 - 0.9 % [facility] Comment on above: Immature Granulocyte Count (IG) includes promyelocytes, myelocytes and metamyelocytes but does not include bands. Percent differential counts (%) should be interpreted in the context of the absolute cell counts (cells/UL). Interpretation and review of laboratory results Abnormal [facility] Lymphocytes (Bld) [#/Vol] 0.64 10*3/uL Low [facility] Lymphocytes/100 WBC (Bld) 11.5 % 13.0 - 44.0 % [facility] MCH (RBC) [Entitic mass] 30 pg 26.0 - 34.0 pg [facility] MCHC (RBC) [Mass/Vol] 31.2 g/dL Low 32.0 - 36.0 g/dL [facility] MCV (RBC) [Entitic vol] 96 fL 80 - 100 fL [facility] Monocytes (Bld) [#/Vol] 0.46 10*3/uL [facility] Monocytes/100 WBC (Bld) 8.3 % 2.0 - 10.0 % [facility] Neutrophils (Bld) [#/Vol] 4.28 10*3/uL [facility] Comment on above: Percent differential counts (%) should be interpreted in the context of the absolute cell counts (cells/uL). Neutrophils/100 WBC (Bld) 76.9 % 40.0 - 80.0 % [facility] Nucleated RBC/100 WBC (Bld) [Ratio] 0 % [facility] Platelets (Bld) [#/Vol] 65 10*3/uL Low U [facility] RBC (Bld) [#/Vol] 3.1 10*6/uL Low [facility] WBC (Bld) [#/Vol] 5.6 10*3/uL [facility] Basophils (Bld) [#/Vol] 0.02 x10*3/uL Normal 0.00-0.10 [facility] Comment on above: Performed By: #### 5 7021-8 #### MIREYA SHAH ([id number]) [facility] ([facility]) [address] [place] [address] 25413 Basophils/100 WBC (Bld) 0.4 % Normal 0.0-2.[address] [facility] Comment on above: Performed By: #### 5 7021-8 #### MIREYA SHAH ([id number]) [facility] ([facility]) [address] [place] [address] 41302 Eosinophils (Bld) [#/Vol] 0.15 x10*3/uL Normal 0.00-0.70 [facility] Comment on above: Performed By: #### 7021-8 #### MIREYA SHAH ([id number]) [facility] ([facility]) [address] [place] [address] 61020 Eosinophils/100 WBC (Bld) 2.7 % Normal 0.0-6.0 [facility] Comment on above: Performed By: #### 5 7021-8 #### MIREYA SHAH ([id number]) [facility] ([facility]) [address] [place] [address] 50290 Erythrocyte distribution width (RBC) [Ratio] 22.1 % High 11.5-14.5 [facility] Comment on above: Performed By: #### 5 7021-8 #### MIREYA SHAH ([id number]) [facility] ([facility]) [address] [place] [address] 95107 Hematocrit (Bld) [Volume fraction] 29.8 % Low 41.0-52.0 [facility] Comment on above: Performed By: #### 5 7021-8 #### MIREYA SHAH ([id number]) [facility] ([facility]) [address] [place] [address] 02861 Hemoglobin (Bld) [Mass/Vol] 9.3 g/dL Low 13.5-17.5 [facility] Comment on above: Performed By: #### 5 7021-8 #### MIREYA SHAH ([id number]) [facility] ([facility]) [address] [place] [address] 94408 Immature granulocytes (Bld) [#/Vol] 0.01 x10*3/uL Normal 0.00-0.70 [facility] Comment on above: Performed By: #### 5 7021-8 #### MIREYA SHAH ([id number]) [facility] ([facility]) [address] [place] [address] 41878 Immature granulocytes/100 WBC (Bld) 0.2 % Normal 0.0-0.9 [facility] Comment on above: Result Comment: Danielle ture Granulocyte Count (IG) includes promyelocytes, myelocytes and metamyelocytes but does not include bands. Percent differential counts (%) should be interpreted in the context of the absolute cell counts (cells/UL). Performed By: #### 5 7021-8 #### MIREYA SHAH ([id number]) [facility] ([facility]) [address] [place] [address] 45802 Lymphocytes (Bld) [#/Vol] 0.64 x10*3/uL Low 1.20-4.80 [facility] Comment on above: Performed By: #### 5 7021-8 #### MIREYA SHAH ([id number]) [facility] ([facility]) [address] [place] [address] 00156 Lymphocytes/100 WBC (Bld) 11.5 % Normal 13.0-44.0 [facility] Comment on above: Performed By: #### 5 7021-8 #### MIREYA SHAH ([id number]) [facility] ([facility]) [address] [place] [address] 70983 MCH (RBC) [Entitic mass] 30.0 pg Normal 26.0-34.0 [facility] Comment on above: Performed By: #### 5 7021-8 #### MIREYA SHAH ([id number]) [facility] ([facility]) [address] [place] [address] 57718 MCHC (RBC) [Mass/Vol] 31.2 g/dL Low 32.0-36.0 [facility] Comment on above: Performed By: #### 5 7021-8 #### MIREYA SHAH ([id number]) [facility] ([facility]) [address] [place] [address] 23397 MCV (RBC) [Entitic vol] 96 fL Normal 80-100 U [facility] Comment on above: Performed By: #### 5 7021-8 #### MIREYA SHAH ([id number]) [facility] ([facility]) [address] [place] [address] 52268 Monocytes (Bld) [#/Vol] 0.46 x10*3/uL Normal 0.10-1.00 [facility] Comment on above: Performed By: #### 5 7021-8 #### MIREYA SHAH ([id number]) [facility] ([facility]) [address] [place] [address] 01748 Monocytes/100 WBC (Bld) 8.3 % Normal 2.0-10.[address] [facility] Comment on above: Performed By: #### 5 7021-8 #### MIREYA SHAH ([id number]) [facility] ([facility]) [address] [place] [address] 77393 Neutrophils (Bld) [#/Vol] 4.28 x10*3/uL Normal 1.20-7.70 [facility] Comment on above: Result Comment: Perc ent differential counts (%) should be interpreted in the context of the absolute cell counts (cells/uL). Performed By: #### 5 7021-8 #### MIREYA SHAH ([id number]) [facility] ([facility]) [address] [place] [address] 98394 Neutrophils/100 WBC (Bld) 76.9 % Normal 40.0-80.0 [facility] Comment on above: Performed By: #### 5 7021-8 #### MIREYA SHAH ([id number]) [facility] ([facility]) [address] [place] [address] 68471 Nucleated RBC/100 WBC (Bld) [Ratio] 0.0 /100 WBCs Normal 0.0-0.0 [facility] Comment on above: Performed By: #### 5 7021-8 #### MIREYA SHAH ([id number]) [facility] ([facility]) [address] [place] [address] 41511 Platelets (Bld) [#/Vol] 65 x10*3/uL Low 150-450 [facility] Comment on above: Performed By: #### 5 7021-8 #### MIREYA SHAH ([id number]) [facility] ([facility]) [address] [place] [address] 87196 RBC (Bld) [#/Vol] 3.10 x10*6/uL Low 4.50-5.90 [facility] Comment on above: Performed By: #### 5 7021-8 #### MIREYA SHAH ([id number]) [facility] ([facility]) [address] [place] [address] 94269 WBC (Bld) [#/Vol] 5.6 x10*3/uL Normal 4.4-11.3 [facility] Comment on above: Performed By: #### 5 7021-8 #### MIREYA SHAH ([id number]) [facility] ([facility]) [address] [place] [address] CT ABDOMEN PELVIS W IV CONTR [place] 10-04-2024 CT ABDOMEN PELVIS W IV CONTRAST Interpreted By: Yohana Huang, STUDY: CT ABDOMEN PELVIS W IV CONTRAST; 10/04/2024 2:16 pm INDICATION: Signs/Symptoms:generaliz ed abdominal pain, hx of cirrhosis, recent paracentesis. COMPARISON: None. ACCESSION NUMBER(S): [id number] ORDERING CLINICIAN: SRIRAM OLEARY TECHNIQUE: CT of [...] Yohana Huang 10/04/2024 2:28 PM Dictation workstation: [id number] [facility] CT Abdomen and Pelvis W cont rast Jamari 10-04-2024 Coronary artery calcifications. Anasarca. Ascites. Small irregular liver consistent with cirrhosis. Extensive collateral vessels. Enlarged spleen. Ventral and inguinal hernias containing ascitic fluid. MACRO: none Signed by: Yohana Huang 10/04/2024 2:28 PM Dictation workstation: [id number] Interpreted By: Yohana Chen, STUDY: CT ABDOMEN PELVIS W IV CONTRAST; 10/04/2024 2:16 pm INDICATION: Signs/Symptoms:generaliz ed abdominal pain, hx of cirrhosis, recent paracentesis. COMPARISON: None. ACCESSION NUMBER(S): [id number] ORDERING CLINICIAN: SRIRAM MANOCCHIO TECHNIQUE: CT of [...] cirrhosis, recent paracentesis. COMPARISON: None. ACCESSION NUMBER(S): [id number] ORDERING CLINICIAN: SRIRAM OLEARY TECHNIQUE: CT of [...] Yohana Huang 10/04/2024 2:28 PM Dictation workstation: [id number] [facility] Work Phone: Radiology Study observation (narrative) [facility] Work Phone: CT Abdomen and Pelvis W cont rast IVOrdered By: Yohana Huang on 10-04-2024 [facility] Work Phone: Cell count panel (Body fld)O rdered By: Fortino Mcgee on 10-04-2024 Clarity (Body fld) Hazy Abnormal Clear [facility] Color (Body fld) Straw Colorless, Straw, Yellow [facility] Interpretation and review of laboratory results Abnormal [facility] RBC Auto (Body fld) [#/Vol] 2000 /uL see comment [facility] WBC (Body fld) [#/Vol] 0.058 10*3/uL See Commen t [facility] Body Fluid cell coun t reference ranges have not been established by [facility]. Reference ranges provided are based on published references. [facility] Cell count panel (Body fld)o n 10-04-2024 Clarity (Body fld) Hazy Abnormal Clear [facility] Comment on above: Order Comment: Body Fluid cell count reference ranges have not been established by [facility]. Reference ranges provided are based on published references. Performed By: #### 3 4556-1 #### MIREYA SHAH ([id number]) [facility] ([facility]) [address] [place] [address] Color (Body fld) Straw Normal Colorless, Straw, Yellow [facility] Comment on above: Order Comment: Body Fluid cell count reference ranges have not been established by [facility]. Reference ranges provided are based on published references. Performed By: #### 3 4556-1 #### MIREYA SHAH ([id number]) [facility] ([facility]) [address] [place] [address] RBC Auto (Body fld) [#/Vol] 2000 /uL Normal see comment [facility] Comment on above: Order Comment: Body Fluid cell count reference ranges have not been established by [facility]. Reference ranges provided are based on published references. Performed By: #### 3 4556-1 #### MIREYA SHAH ([id number]) [facility] ([facility]) [address] [place] [address] WBC (Body fld) [#/Vol] 0.058 10*3/uL Normal See Commen t [facility] Comment on above: Order Comment: Body Fluid cell count reference ranges have not been established by [facility]. Reference ranges provided are based on published references. Performed By: #### 3 4556-1 #### MIREYA SHAH ([id number]) [facility] ([facility]) [address] [place], [place] [address] Coagulation surface inducedo n 10-04-2024 aPTT Coag (PPP) [Time] 40 s High 26-36 [facility] Comment on above: Order Comment: The A PTT is no longer used for monitoring Unfractionated Heparin Therapy. For monitoring Heparin Therapy, use the Heparin Assay. Performed By: #### 1 4979-9 #### MIREYA SHAH ([id number]) [facility] ([facility]) [address] [place] [address] 72147 Coagulation tissue factor in ducedon 10-04-2024 PT Coag (PPP) [Time] 23.6 s High 9.8-12.4 [facility] Comment on above: Performed By: #### 5 902-2 #### MIREYA SHAH ([id number]) [facility] ([facility]) [address] [place] [address] 25953 Differential panel (Body fld )on 10-04-2024 Basophils/100 WBC (Body fld) 0 % not established [facility] Blasts/100 WBC Manual cnt (Body fld) 0 % not established [facility] Cells Counted Total (Body fld) [#] 100 [facility] Eosinophils/100 WBC Manual cnt (Body fld) 0 % see comment [facility] Immature Granulocytes %, Manual, Fluid 0 % not established [facility] Interpretation and review of laboratory results Abnormal [facility] Lymphocytes/100 WBC Manual cnt (Body fld) 19 % see comment [facility] Monocytes+Macrophages/1 00 WBC Manual cnt (Body fld) 17 % see comment [facility] Neutrophils/100 WBC (Body fld) 40 % see comment [facility] Other cells/100 WBC Manual cnt (Body fld) 24 % High not established [facility] Comment on above: Mesothelial cells no tianna by tech Plasma cells/100 WBC Manual cnt (Body fld) 0 % not established [facility] Body Fluid cell differential reference ranges have not been established by [facility]. Reference ranges provided are based on published references. [facility] Basophils/100 WBC (Body fld) 0 % Normal not established [facility] Comment on above: Order Comment: Body Fluid cell differential reference ranges have not been established by [facility]. Reference ranges provided are based on published references. Performed By: #### 2 9580-8 #### MIREYA SHAH ([id number]) [facility] ([facility]) [facility] [place] [id number] Blasts/100 WBC Manual cnt (Body fld) 0 % Normal not established [facility] Comment on above: Order Comment: Body Fluid cell differential reference ranges have not been established by [facility]. Reference ranges provided are based on published references. Performed By: #### 2 9580-8 #### MIREYA SHAH ([id number]) [facility] ([facility]) [address] [place] [address] Cells Counted Total (Body fld) [#] 100 Normal [facility] Comment on above: Order Comment: Body Fluid cell differential reference ranges have not been established by [facility]. Reference ranges provided are based on published references. Performed By: #### 2 9580-8 #### MIREYA SHAH ([id number]) [facility] ([facility]) [address] [place] [address] [phone] Eosinophils/100 WBC Manual cnt (Body fld) 0 % Normal see comment [facility] Comment on above: Order Comment: Body Fluid cell differential reference ranges have not been established by [facility]. Reference ranges provided are based on published references. Performed By: #### 2 9580-8 #### MIREYA SHAH ([id number]) [facility] ([facility]) [address] [place] [address] 96486 IMMATURE GRANULOCYTES IN FLUID 0 % Normal not established [facility] Comment on above: Order Comment: Body Fluid cell differential reference ranges have not been established by [facility]. Reference ranges provided are based on published references. Performed By: #### 2 9580-8 #### MIREYA SHAH ([id number]) [facility] ([facility]) [address] [place] [address] 07933 Lymphocytes/100 WBC Manual cnt (Body fld) 19 % Normal see comment [facility] Comment on above: Order Comment: Body Fluid cell differential reference ranges have not been established by [facility]. Reference ranges provided are based on published references. Performed By: #### 2 9580-8 #### MIREYA SHAH ([id number]) [facility] ([facility]) [address] [place] [address] Monocytes+Macrophages/1 00 WBC Manual cnt (Body fld) 17 % Normal see comment [facility] Comment on above: Order Comment: Body Fluid cell differential reference ranges have not been established by [facility]. Reference ranges provided are based on published references. Performed By: #### 2 9580-8 #### MIREYA SHAH ([id number]) [facility] ([facility]) [address] [place] [address] 06913 Neutrophils/100 WBC (Body fld) 40 % Normal see comment [facility] Comment on above: Order Comment: Body Fluid cell differential reference ranges have not been established by [facility]. Reference ranges provided are based on published references. Performed By: #### 2 9580-8 #### MIREYA SHAH ([id number]) [facility] ([facility]) [address] [place] [address] 58923 Other cells/100 WBC Manual cnt (Body fld) 24 % High not established [facility] Comment on above: Order Comment: Body Fluid cell differential reference ranges have not been established by [facility]. Reference ranges provided are based on published references. Result Comment: Meso thelial cells noted by tech Performed By: #### 2 9580-8 #### MIREYA SHAH ([id number]) [facility] ([facility]) [address] [place] [address] 36942 Plasma cells/100 WBC Manual cnt (Body fld) 0 % Normal not established [facility] Comment on above: Order Comment: Body Fluid cell differential reference ranges have not been established by [facility]. Reference ranges provided are based on published references. Performed By: #### 2 9580-8 #### MIREYA SHAH ([id number]) [facility] ([facility]) [address] [place] [address] Glucoseon 10-04-2024 Glucose (Body fld) [Mass/Vol] 200 mg/dL Normal Not established [facility] Comment on above: Order Comment: Venip uncture immediately after or during the administration of Metamizole may lead to falsely low results. Testing should be performed immediately prior to Metamizole dosing. Performed By: #### 2 524-7 #### MIREYA SHAH ([id number]) [facility] ([facility]) [address] [place] [address] Hepatic function 2000 panelo n 10-04-2024 Albumin BCP dye [Mass/Vol] 2.4 g/dL Low 3.4 - 5.0 g/dL [facility] ALP [Catalytic activity/Vol] 212 U/L High 33 - 120 U/L [facility] ALT With P-5'-P [Catalytic activity/Vol] 46 U/L 10 - 52 U/L [facility] Comment on above: Patients treated wit h Sulfasalazine may generate falsely decreased results for ALT. AST With P-5'-P [Catalytic activity/Vol] 49 U/L High 9 - 39 U/L [facility] Bilirubin [Mass/Vol] 1.8 mg/dL High 0.0 - 1 .2 mg/dL [facility] Bilirubin.direct [Mass/Vol] 0.7 mg/dL High 0.0 - 0.3 mg/dL [facility] Protein [Mass/Vol] 5.7 g/dL Low 6.4 - 8.2 g/dL [facility] Albumin BCP dye [Mass/Vol] 2.4 g/dL Low 3.4-5.0 [facility] Comment on above: Performed By: #### 2 4325-3 #### MIREYA SHAH ([id number]) [facility] ([facility]) [address] [place] [address] 52791 ALP [Catalytic activity/Vol] 212 U/L High 33-120 [facility] Comment on above: Performed By: #### 2 4325-3 #### MIREYA SHAH ([id number]) [facility] ([facility]) [address] [place] [address] 01494 ALT With P-5'-P [Catalytic activity/Vol] 46 U/L Normal 10-52 [facility] Comment on above: Result Comment: Argenis ents treated with Sulfasalazine may generate falsely decreased results for ALT. Performed By: #### 2 4325-3 #### MIREYA SHAH ([id number]) [facility] ([facility]) [facility] [place] [address] AST With P-5'-P [Catalytic activity/Vol] 49 U/L High 9-39 [facility] Comment on above: Performed By: #### 2 4325-3 #### MIREYA SHAH ([id number]) [facility] ([facility]) [address] [place] [address] 71874 Bilirubin [Mass/Vol] 1.8 mg/dL High 0.0-1.2 [facility] Comment on above: Performed By: #### 2 4325-3 #### MIREYA SHAH ([id number]) [facility] ([facility]) [address] [place] [address] 64798 Bilirubin.direct [Mass/Vol] 0.7 mg/dL High 0.0-0.3 [facility] Comment on above: Performed By: #### 2 4325-3 #### MIREYA SHAH ([id number]) [facility] ([facility]) [address] [place] [address] 43431 Protein [Mass/Vol] 5.7 g/dL Low 6.4-8.2 [facility] Comment on above: Performed By: #### 2 4325-3 #### MIREYA SHAH ([id number]) [facility] ([facility]) [address] [place] [address] 10699 Lactateon 10-04-2024 Lactate [Moles/Vol] 2 mmol/L 0.4 - 2. 0 mmol/L [facility] Lactate [Moles/Vol] 2.0 mmol/L Normal 0.4-2.0 [facility] Comment on above: Order Comment: Venip uncture immediately after or during the administration of Metamizole may lead to falsely low results. Testing should be performed immediately prior to Metamizole dosing. Performed By: #### 2 524-7 #### MIREYA SHAH ([id number]) [facility] ([facility]) [address] [place] [address] 84582 Lactate [Moles/Vol]on 2024 Interpretation and review of laboratory results Normal [facility] Venipuncture immedia tely after or during the administration of Metamizole may lead to falsely low results. Testing should be performed immediately prior to Metamizole dosing. [facility] Lactate dehydrogenaseon 03-0 LDH Lactate to pyruvate reaction (Body fld) [Catalytic activity/Vol] <25 Normal Not established. [facility] Comment on above: Order Comment: Venip uncture immediately after or during the administration of Metamizole may lead to falsely low results. Testing should be performed immediately prior to Metamizole dosing. Performed By: #### 2 524-7 #### GOMES ALYSSA ([id number]) [facility] ([facility]) [address] [place] [address] Lipaseon 10-04-2024 Lipase [Catalytic activity/Vol] 56 U/L 9 - 82 U/L [facility] Lipase [Catalytic activity/V ol]on 10-04-2024 Interpretation and review of laboratory results Normal [facility] Venipuncture immedia tely after or during the administration of Metamizole may lead to falsely low results. Testing should be performed immediately prior to Metamizole dosing. [facility] No Panel Informationon 10-04 Interpretation and review of laboratory results Abnormal [facility] Interpretation and review of laboratory results Abnormal [facility] Non-scrubber system attendant cytology studyon Non-gynecological cytology method study Pathology report.total SEE COMMENT Non-gynecologic Cytology Case: [id number] Authorizing Provider: Joey Huang DO Collected: 10/04/2024 1714 Ordering Location: [facility] Received: 10/05/2024 [address] [facility] Pathologist: Jarvis Guzman MD Specimen: ASCITIC FLUID Path report.final diagnosis SEE COMMENT A. ASCITIC FLUID: - NO MALIGNANT CELLS IDENTIFIED. Note: This case has been evaluated using a concentrated (ThinPrep) preparation. Laboratory comment SEE COMMENT Slide(s) initially screened by ABEL Castro at [facility] [address] [place] [phone] By the signature on this report, the [...] A1-1 Pap Stain NGYN ThinPrep Normal [facility] PT Coag (PPP) [Time]on 10-04 INR Coag (PPP) [Relative time] 2.1 {INR} High 0.9 - 1.1 [facility] INR Coag (PPP) [Relative time] 2.1 High 0.9-1.1 [facility] Comment on above: Performed By: #### 5 902-2 #### GOMES ALYSSA ([id number]) [facility] ([facility]) [address] [place] [address] Paracentesison 10-04-2024 Joey Huang DO 10/04/2024 5:18 PM Paracentesis Date/Time: 10/04/2024 5:17 PM Performed by: Joey Huang DO Authorized by: Joey Huang DO Consent: Consent obtained: Written Consent given by: Patient Risks, benefits, and alternatives were discussed: yes Risks discussed: Bleeding, bowel perforation and infection Alternatives discussed: No treatment [facility] protocol: Procedure explained and questions answered to [...] Adhesive bandage Post-procedure details: Procedure completion: Tolerated [facility] Work Phone: [facility] Work Phone: Proteinon 10-04-2024 Protein (Body fld) [Mass/Vol] g/dL Normal Not established [facility] Comment on above: Order Comment: Venip uncture immediately after or during the administration of Metamizole may lead to falsely low results. Testing should be performed immediately prior to Metamizole dosing. Performed By: #### 2 524-7 #### MIREYA SHAH ([id number]) [facility] ([facility]) [facility] [place] [id number] Protime-INRon 10-04-2024 PT Coag (PPP) [Time] 23.6 s High [facility] Triacylglycerol lipaseon Lipase [Catalytic activity/Vol] 56 U/L Normal 9-82 [facility] Comment on above: Order Comment: Venip uncture immediately after or during the administration of Metamizole may lead to falsely low results. Testing should be performed immediately prior to Metamizole dosing. Performed By: #### 3 040-3 #### MIREYA SHAH ([id number]) [facility] ([facility]) [address] [place], [place] [address] aPTT Coag (PPP) [Time]on The APTT is no longe r used for monitoring Unfractionated Heparin Therapy. For monitoring Heparin Therapy, use the Heparin Assay. [facility] pHon 10-04-2024 pH (Body fld) 7.82 Normal See Below [facility] Comment on above: Order Comment: Venip uncture immediately after or during the administration of Metamizole may lead to falsely low results. Testing should be performed immediately prior to Metamizole dosing. Performed By: #### 2 524-7 #### MIREYA SHAH ([id number]) [facility] ([facility]) [address] [place], [place] [address] Glucose measurement at [facility] deOrdered By: Boone Izquierdo on 09-14-2024 Bedside Glucose (Misc Panel) 134 mg/dL High 74-106 [facility] Comment on above: MANAGEMENT OF PATIEN T CARE PER NURSING PROTOCOL Glucose [Mass/Vol] 134 mg/dL High 74-106 [facility] Glucose measurement at bedside 134 mg/dL High 74-106 [facility] Blood urea nitrogen (BUN)/cr eatinine ratioOrdered By: Jae Ash on 09-12-2024 Urea nitrogen/Creatinine [Mass ratio] 7.6 mg/mg Low 10-20 [facility] Blood urea nitrogen (BUN)/creatinine ratio 7.6 RATIO Low 10-20 [facility] Calcium [Mass/Vol]Ordered By : Jae Ash on 09-12-2024 Serum or plasma calcium measurement (mass/volume) 8.1 mg/dL Low 8.5-10.1 [facility] Carbon dioxide measurementOr dered By: Jae Ash on 09-12-2024 CO2 [Moles/Vol] 20.0 mmol/L Low 21.0-32.0 [facility] Carbon dioxide measurement 20.0 mmol/L Low 21.0-32.0 [facility] Chloride measurementOrdered By: Jae Ash on 09-12-2024 Chloride [Moles/Vol] 109 mmol/L High 98-107 [facility] Chloride measurement 109 mmol/L High 98-107 [facility] Creatinine [Mass/Vol]Ordered By: Jae Ash on 09-12-2024 Serum or plasma creatinine measurement (mass/volume) 0.92 mg/dL 0.70-1.30 [facility] Erythrocyte distribution wid th (RBC) [Ratio]Ordered By: Jae Ash on 09-12-2024 Erythrocyte distribution width ratio 19.7 % High 11.6-14.6 [facility] Erythrocyte distribution width standard deviation 63.5 fl High 35.1-43.9 [facility] Erythrocyte distribution wid th ratioOrdered By: Jae Ash on 09-12-2024 Erythrocyte distribution width (RBC) [Ratio] 19.7 % High 11.6-14.6 [facility] Erythrocyte distribution wid th standard deviationOrdered By: Jae Ash on 09-12-2024 Erythrocyte distribution width (RBC) [Entitic vol] 63.5 fL High 35.1-43.9 [facility] Erythrocyte distribution width (RBC) [Ratio] 63.5 fl High 35.1-43.9 [facility] Estimated glomerular filtrat ion rate (GFR) AmericanOrdered By: Jae Ash on 09-12-2024 Estimated GFR (MDRD) Amer 108 mL/min >60 [facility] Comment on above: GFR Calc Estimated glomerular filtration rate (GFR) 108 mL/min >60 [facility] Estimation of creatinine [place] aranceOrdered By: Jae Ash on 09-12-2024 Estimated Creatinine Clearance Calc 71.80 ml/min [facility] Estimation of creatinine clearance 71.80 ml/min [facility] Glomerular filtration rate ( GFR) estimationOrdered By: Jae Ash on 09-12-2024 Estimated GFR (MDRD) Non-Af Amer 89 mL/min >60 [facility] Comment on above: Non- GFR Calc GFR/1.73 sq M.predicted among non-blacks MDRD (S/P/Bld) [Vol rate/Area] 89 mL/min/{1.73_m2} >60 [facility] Glomerular filtration rate (GFR) estimation 89 mL/min >60 [facility] Glucose measurementOrdered B y: Jae Ash on 09-12-2024 Glucose [Mass/Vol] 149 mg/dL High 74-106 [facility] Comment on above: Fasting Glucose resu lt greater than or equal to 126 mg/dL suggests DIABETES MELLITUS per A.D.A. criteria. Glucose measurement 149 mg/dL High 74-106 [facility] Hematocrit Auto (Bld) [Volum e fraction]Ordered By: Jae Ash on 09-12-2024 Hematocrit (Bld) [Volume fraction] 25.8 % Low 40-54 [facility] Automated blood hematocrit (percentage) 25.8 % Low 40-54 [facility] Hemoglobin measurementOrdere d By: Jae Ash on 09-12-2024 Hemoglobin (Bld) [Mass/Vol] 8.1 g/dL Low 13.0-16.5 [facility] Hemoglobin measurement 8.1 g/dL Low 13.0-16.5 [facility] MCV (RBC) [Entitic vol]Order ed By: Jea Ash on 09-12-2024 MCV (mean corpuscular volume) determination 90.5 fL 80-94 [facility] MCV (mean corpuscular volume ) determinationOrdered By: Jae Ash on 09-12-2024 MCV (RBC) [Entitic vol] 90.5 fL 80-94 [facility] Mean corpuscular hemoglobin (MCH) determinationOrdered By: Jae Ash on 09-12-2024 MCH (RBC) [Entitic mass] 28.4 pg 27.0-32.0 [facility] Mean corpuscular hemoglobin (MCH) determination 28.4 pg 27.0-32.0 [facility] Mean corpuscular hemoglobin concentration (MCHC) determinationOrdered By: Jae Ash on 09-12-2024 MCHC (RBC) [Mass/Vol] 31.4 g/dL Low 32-36 [facility] Comment on above: Delta: 33.1 on 09/10 Mean corpuscular hemoglobin concentration (MCHC) determination 31.4 g/dL Low 32-36 [facility] Mean platelet volume determi nationOrdered By: Jae Ash on 09-12-2024 Platelet mean volume (Bld) [Entitic vol] 11.9 fL 6.2-12.0 [facility] Mean platelet volume determination 11.9 fl 6.2-12.0 [facility] Platelet countOrdered By: Sky Ash on 09-12-2024 Platelets (Bld) [#/Vol] 115 10*3/uL Low 150-450 [facility] Platelet count 115 K/mm3 Low 150-450 [facility] Potassium measurementOrdered By: Jae Ash on 09-12-2024 Potassium [Moles/Vol] 3.4 mmol/L Low 3.5-5.1 [facility] Potassium measurement 3.4 mmol/L Low 3.5-5.1 [facility] RBC Auto (Bld) [#/Vol]Ordere d By: Jae Ash on 09-12-2024 RBC (Bld) [#/Vol] 2.85 10*6/uL Low 4.6-6.2 [facility] Automated blood erythrocyte count 2.85 M/mm3 Low 4.6-6.2 [facility] Serum anion gap measurementO rdered By: Jae Ash on 09-12-2024 Anion gap [Moles/Vol] 7 mmol/L 5-15 [facility] Serum anion gap measurement 7 5-15 [facility] Serum or plasma calcium roosevelt urement (mass/volume)Ordered By: Jae Ash on 09-12-2024 Calcium [Mass/Vol] 8.1 mg/dL Low 8.5-10.1 [facility] Serum or plasma creatinine m easurement (mass/volume)Ordered By: Jae Ash on 09-12-2024 Creatinine [Mass/Vol] 0.92 mg/dL 0.70-1.30 [facility] Comment on above: The validity of the calculated GFR & GFRAA in patients over 70 years has not been determined. Clinical correlation is essential. Serum or plasma urea nitroge n measurement (mass/volume)Ordered By: Jae Ash on 09-12-2024 Urea nitrogen [Mass/Vol] 7 mg/dL 02-18 [facility] Sodium levelOrdered By: Pasha Ash on 09-12-2024 Sodium [Moles/Vol] 136 mmol/L 136-145 [facility] Sodium level 136 mmol/L 136-145 [facility] Urea nitrogen [Mass/Vol]Orde red By: Jae Ash on 09-12-2024 Serum or plasma urea nitrogen measurement (mass/volume) 7 mg/dL 02-18 [facility] White blood cell (WBC) count Ordered By: Jae Ash on 09-12-2024 WBC (Bld) [#/Vol] 7.4 10*3/uL 4.4-11.0 [facility] White blood cell (WBC) count 7.4 K/mm3 4.4-11.0 [facility] Serum or plasma trough vanco mycin levelOrdered By: Thai Thurston on 09-10-2024 Vancomycin trough [Mass/Vol] 15.7 ug/mL High 5.0-15.0 [facility] Vancomycin trough [Mass/Vol] Ordered By: Thai Thurston on 09-10-2024 Vancomycin Level Trough 15.7 ug/mL High 5.0-15.0 [facility] Comment on above: VANCOMYCIN STANDARED DRUG THERAPY TROUGH LEVEL: 5.0 - 15.0 mg/L VANCOMYCIN HIGH INTENSITY THERAPY TROUGH LEVEL: 15.0 - 20.0 mg/L High Intensity therapy recommended for serious lifethreatening infections include:- Kjbspdcotz-Tiyrpwadpdnx-Hwtoyqefx (Ventilator/Healtcare Associated)-Sepsis PLEASE CONTACT PHARMACY SERVICES (#[id number]) FOR INTERPRETATIONOF RESULTS. Serum or plasma trough vancomycin level 15.7 ug/mL High 5.0-15.0 [facility] Serum or plasma vancomycin l evel (mass/volume)Ordered By: Maria Guadalupe Shore on 09-08-2024 Vancomycin [Mass/Vol] 16.5 ug/mL High 0.0-15.0 [facility] Vancomycin [Mass/Vol]Ordered By: Maria Guadalupe Shore on 09-08-2024 Random Vancomycin Level 16.5 ug/mL High 0.0-15.0 [facility] Comment on above: VANCOMYCIN STANDARD DRUG THERAPY: CRITICAL VALUE IS > 15.0 mg/L VANCOMYCIN HIGH INTENSITY THERAPY: CRITICAL VALUE IS > 20.0 mg/L PLEASE CONTACT PHARMACY SERVICES (#[id number]) FOR INTERPRETATIONOF RESULTS. THIS RESULT DOES NOT REPRESENT A PEAK OR TROUGHLEVEL FOR THIS DRUG. Serum or plasma vancomycin level (mass/volume) 16.5 ug/mL High 0.0-15.0 [facility] Absolute lymphocyte countOrd ered By: Anurag Irene on 09-07-2024 Lymphocytes Auto (Unsp spec) [#/Vol] 0.95 10*3/uL 0.83-4.51 [facility] Absolute neutrophil countOrd ered By: Anurag Irene on 09-07-2024 Neutrophils (Bld) [#/Vol] 13.3 10*3/uL High 2.0-7.7 [facility] Absolute neutrophil count 13.3 X10^3/uL High 2.0-7.7 [facility] Automated lymphocyte count a s percentage of total leukocytesOrdered By: Anurag Irene on 09-07-2024 Lymphocytes/100 WBC Auto (Unsp spec) 5.8 % Low 19-41 [facility] Basophil percentageOrdered B y: Anurag Irene on 09-07-2024 Basophils/100 WBC (Bld) 0.4 % 0-1 [facility] Basophil percentage 0.4 % 0-1 [facility] Eosinophil percentageOrdered By: Anurag Irene on 09-07-2024 Eosinophils/100 WBC (Bld) 3.0 % 0-5 [facility] Eosinophil percentage 3.0 % 0-5 [facility] Immature granulocytes/100 WB C Auto (Bld)Ordered By: Anurag Irene on 09-07-2024 Immature granulocytes/100 WBC (Bld) 1.400 % High 0.0-0.9 [facility] Comment on above: IG% - Immature Granu locytes (promyelocytes, myelocytes and metamyelocytes) > 1% indicates that a LEFT SHIFT is Present. Automated immature granulocyte percentage 1.400 % High 0.0-0.9 [facility] Lymphocytes Auto (Unsp spec) [#/Vol]Ordered By: Anurag Irene on 09-07-2024 Lymphocytes (Bld) [#/Vol] 0.95 10*3/uL 0.83-4.51 [facility] Absolute lymphocyte count 0.95 X10^3/uL 0.83-4.51 [facility] Lymphocytes/100 WBC Auto (Un sp spec)Ordered By: Anurag Irene on 09-07-2024 Lymphocytes/100 WBC (Bld) 5.8 % Low 19-41 [facility] Automated lymphocyte count as percentage of total leukocytes 5.8 % Low 19-41 [facility] Monocyte percentageOrdered B y: Anurag Irene on 09-07-2024 Monocytes/100 WBC (Bld) 8.6 % 0-10 [facility] Monocyte percentage 8.6 % 0-10 [facility] Neutrophil percentageOrdered By: Anurag Irene on 09-07-2024 Neutrophils/100 WBC (Bld) 80.8 % High 47-70 [facility] Neutrophil percentage 80.8 % High 47-70 [facility] Nucleated red blood cell per centageOrdered By: Anurag Irene on 09-07-2024 Nucleated RBC/100 WBC (Bld) [Ratio] 0 % 0-5 [facility] Nucleated red blood cell percentage 0 % 0-5 [facility] Blood cultureOrdered By: [place] Irene on 09-06-2024 Bacteria identified Cx Nom (Bld) No growth in 5 days. [facility] Blood culture No growth in 5 days. [facility] Blood cultureOrdered By: Shi Joiner on 09-05-2024 Bacteria identified Cx Nom (Bld) Staphylococcus epidermidis Abnormal [facility] Blood culture Staphylococcus epidermidis Abnormal [facility] Folic acid measurementOrdere d By: Hill Wright on 09-05-2024 Folate 30.10 ng/mL 3.1-55.4 [facility] Folic acid measurement 30.10 ng/mL 3.1-55.4 [facility] Lactic acid measurementOrder ed By: Hill Wright on 09-05-2024 Lactate [Moles/Vol] 2.3 mmol/L High 0.4-2.0 [facility] [facility] [place] Comment on above: Critical Result(s) C alled at: 08:26:40 09/05/2024 by: Lucy Ramirez to [facility]. Results read back by same. Lactic acid measurement 2.3 mmol/L High 0.4-2.0 [facility] Serum ethanol measurementOrd ered By: Hill Wright on 09-05-2024 Ethyl Alcohol Level 4.0 mg/dL [facility] Comment on above: The serum:whole bloo d ethanol ratio is approximately 1.14and varies slightly with hematocrit. Medical Alcohol reference interval and critical value innon-tolerant individuals; 50 - 100 Impairment 100 Intoxication 100 - 250 Severe Poisoning 250 - 400 Deep/possible fatal coma Serum ethanol measurement 4.0 mg/dL [facility] Vitamin B12 measurementOrder ed By: Hill Wright on 09-05-2024 Vitamin B12 Level > 2000 pg/mL High 211-911 [facility] Vitamin B12 measurement > 2000 pg/mL High 211-911 [facility] ALP [Catalytic activity/Vol] Ordered By: Rachel Joiner on 09-04-2024 Serum or plasma alkaline phosphatase measurement 269 U/L High 45-117 [facility] ALT [Catalytic activity/Vol] Ordered By: Rachel Joiner on 09-04-2024 Serum or plasma alanine aminotransferase (ALT) measurement 79 U/L High 16-61 [facility] Albumin [Mass/Vol]Ordered By : Rachel Joiner on 09-04-2024 Serum or plasma albumin measurement (mass/volume) 2.0 g/dL Low 3.2-5.0 [facility] Bilirubin Test strip Ql (U)O rdered By: Rachel Joiner on 09-04-2024 Bilirubin Ql (U) 1 mg/dL High Negative [facility] Comment on above: COLOR OF URINE MAY A FFECT DIPSTICK RESULTS. Bilirubin directOrdered By: Rachel Joiner on 09-04-2024 Bilirubin.direct [Mass/Vol] 1.80 mg/dL High 0.00-0.30 [facility] Bilirubin, totalOrdered By: Rachel Joiner on 09-04-2024 Bilirubin [Mass/Vol] 3.10 mg/dL High 0.20-1.00 [facility] Comment on above: For patients on eltr ombopag therapy, use of Dimension Greer TBIL is not recommended. Bilirubin, total 3.10 mg/dL High 0.20-1.00 [facility] Bilirubin.direct [Mass/Vol]O rdered By: Rachel Joiner on 09-04-2024 Bilirubin direct 1.80 mg/dL High 0.00-0.30 [facility] Blood cultureOrdered By: Shi Joiner on 09-04-2024 Bacteria identified Cx Nom (Bld) [facility] Clarity (U)Ordered By: Kaz Joiner on 09-04-2024 Urine clarity Clear Clear [facility] Color (U)Ordered By: Rachel Joiner on 09-04-2024 Urine color determination Yellow Yellow [facility] Epithelial cells.squamous LM Ql (Urine sed)Ordered By: Rachel Joiner on 09-04-2024 Epithelial cells.squamous LM.HPF (Urine sed) [#/Area] 0 /[HPF] 0-5 [facility] Glucose Ql (U)Ordered By: Brendan Joiner on 09-04-2024 Urine Glucose (UA) Normal mg/dl Normal [facility] Urine glucose detection Normal mg/dl Normal [facility] HbA1c (Bld) [Mass fraction]O rdered By: Hill Wrigth on 09-04-2024 Hemoglobin A1c percentage 7.3 % High 3.8-5.6 [facility] Hemoglobin A1c percentageOrd ered By: Hill Wright on 09-04-2024 HbA1c (Bld) [Mass fraction] 7.3 % High 3.8-5.6 [facility] Comment on above: Normal < 5.7 % Predi abetic 5.7 - 6.4 % Diabetic >or= 6.5 % Please note range changes. Ketones Test strip Ql (U)Ord ered By: Rachel Joiner on 09-04-2024 Ketones Ql (U) Negative Negative [facility] Laboratory - Chemistry and C hemistry - challengeOrdered By: Rachel Joiner on 09-04-2024 AST [Catalytic activity/Vol] 156 U/L High 15-37 [facility] Leukocyte esterase Test stri p Ql (U)Ordered By: Rachel Joiner on 09-04-2024 Urine leukocyte esterase detection by dipstick 100 /ul High Negative [facility] Methadone, urineOrdered By: Rachel Joiner on 09-04-2024 Urine Methadone Screen Negative < 300 ng/mL [facility] Microorganism identified Cx Nom (Unsp spec)Ordered By: Rachel Joiner on 09-04-2024 Bacteria Detection (PCR) Staphylococcus epidermidis Abnormal [facility] Bacteria Detection (PCR) mecA Resistance Marker Abnormal [facility] Organism identification mecA Resistance Marker Abnormal [facility] Microscopic analysis of urin e for red blood cells (RBC)Ordered By: Rachel Joiner on 09-04-2024 Urine RBC 10-25 SEEN /hpf 0-5 [facility] Microscopic analysis of urine for red blood cells (RBC) 10-25 SEEN /hpf 0-5 [facility] Mucus LM Ql (Urine sed)Order ed By: Rachel Joiner on 09-04-2024 Mucus Ql (Urine sed) 0 SEEN /hpf [facility] Nitrite Test strip Ql (U)Ord ered By: Rachel Joiner on 09-04-2024 Nitrite Ql (U) Negative Negative [facility] No Panel InformationOrdered By: Rachel Joiner on 09-04-2024 156 U/L High 15-37 [facility] Urine Drug Screen Comment [facility] Comment on above: CONFIRMATORY TESTING [...] MUST BE ORDERED SEPARATELY. USE TESTMNEMONIC: UTCA [facility] Organism identificationOrder ed By: Rachel Joiner on 09-04-2024 Microorganism identified Cx Nom (Unsp spec) Staphylococcus epidermidis Abnormal [facility] Microorganism identified Cx Nom (Unsp spec) mecA Resistance Marker Abnormal [facility] Protein Test strip Ql (U)Ord ered By: Rachel Joiner on 09-04-2024 Protein Ql (U) 30 mg/dl High Negative [facility] Urine protein assay by test strip, semi-quantitative 30 mg/dl High Negative [facility] Quantitative urine opiates m easurementOrdered By: Rachel Joiner on 09-04-2024 Opiates Ql (U) Positive High < 300 ng/mL [facility] Quantitative urine opiates measurement Positive High < 300 ng/mL [facility] Screening prostate specific antigen (PSA) measurementOrdered By: Hill Wright on 09-04-2024 Prostate Specific Antigen Screen 1.41 ng/mL 0.00-4.00 [facility] Comment on above: This test was perfor med using the TPSA assay method for [employer] chemistry system. Values obtained with differentassay methods cannot be used interchangably.When changing PSA assays in the course of monitoring apatient, additional sequential testing should be carriedout to confirm baseline values. Screening prostate specific antigen (PSA) measurement 1.41 ng/mL 0.00-4.00 [facility] Serum globulin measurementOr dered By: Rachel Joiner on 09-04-2024 Globulin (S) [Mass/Vol] 4.1 g/dL 2.2-4.2 [facility] Serum globulin measurement 4.1 g/dL 2.2-4.2 [facility] Serum or plasma alanine thomas otransferase (ALT) measurementOrdered By: Rachel Joiner on 09-04-2024 ALT [Catalytic activity/Vol] 79 U/L High 16-61 [facility] Serum or plasma albumin roosevelt urement (mass/volume)Ordered By: Rachel Joiner on 09-04-2024 Albumin [Mass/Vol] 2.0 g/dL Low 3.2-5.0 [facility] Serum or plasma alkaline kendrick sphatase measurementOrdered By: Rachel Joiner on 09-04-2024 ALP [Catalytic activity/Vol] 269 U/L High 45-117 [facility] Serum or plasma thyroid stim ulating hormone (TSH) measurement (units/volume)Ordered By: Hill Wright on 09-04-2024 TSH Qn 0.826 uIU/mL 0.358-3.740 [facility] Specific gravity (U) [Rel de nsity]Ordered By: Rachel Joiner on 09-04-2024 Urine specific gravity measurement 1.020 1.002-1.030 [facility] Squamous epithelial cells de tection in urine sediment by light microscopyOrdered By: Rachel Joiner on 09-04-2024 Epithelial cells.squamous LM Ql (Urine sed) 0 SEEN /hpf 0-5 [facility] Squamous epithelial cells detection in urine sediment by light microscopy 0 SEEN /hpf [facility] TSH QnOrdered By: Hill patino on 09-04-2024 Thyroid Stimulating Hormone (TSH) 0.826 uIU/mL 0.358-3.740 [facility] Serum or plasma thyroid stimulating hormone (TSH) measurement (units/volume) 0.826 uIU/mL 0.358-3.740 [facility] Total proteinOrdered By: Shi Joiner on 09-04-2024 Protein [Mass/Vol] 6.1 g/dL Low 6.4-8.2 [facility] Total protein 6.1 g/dL Low 6.4-8.2 [facility] Urine amphetamine measuremen tOrdered By: Racehl Joiner on 09-04-2024 Amphetamines Ql (U) Negative <1000 ng/mL [facility] Urine barbiturates measureme ntOrdered By: Rachel Joiner on 09-04-2024 Urine Barbiturates Screen Negative < 200 ng/mL [facility] Urine benzodiazepine levelOr dered By: Rachel Joiner on 09-04-2024 Benzodiazepines Ql (U) Negative < 200 ng/mL [facility] Urine blood detectionOrdered By: Rachel Joiner on 09-04-2024 Urine Occult Blood 150 /ul High Negative [facility] Urine blood detection 150 /ul High Negative [facility] Urine clarityOrdered By: Shi Joiner on 09-04-2024 Clarity (U) Clear Clear [facility] Urine cocaine levelOrdered B y: Rachel Joiner on 09-04-2024 Cocaine Ql (U) Negative < 300 ng/mL [facility] Urine color determinationOrd ered By: Rachel Joiner on 09-04-2024 Color (U) Yellow Yellow [facility] Urine cultureOrdered By: Hugo Wright on 09-04-2024 Bacteria identified Cx Nom (U) Staphylococcus epidermidis Abnormal [facility] Urine culture Staphylococcus epidermidis Abnormal [facility] Urine [id number] abinol (THC) measurementOrdered By: Rachel Joiner on 09-04-2024 Cannabinoids Screen Ql (U) Negative < 50 ng/mL [facility] Urine glucose detectionOrder ed By: Rachel Joiner on 09-04-2024 Glucose Ql (U) Normal mg/dl Normal [facility] Urine ketones detection by t est stripOrdered By: Rachel Joiner on 09-04-2024 Urine ketones detection by test strip Negative < 50 ng/mL [facility] Urine leukocyte esterase det ection by dipstickOrdered By: Rachel Joiner on 09-04-2024 Leukocyte esterase Test strip Ql (U) 100 /ul High Negative [facility] Urine methylenedioxymethamph etamine (MDMA) measurementOrdered By: Rachel Joiner on 09-04-2024 MDMA (Ecstasy) Screen Negative < 500 ng/mL [facility] Urine pHOrdered By: Rachel silva on 09-04-2024 pH (U) 6.0 [pH] 5.0 - 8.0 [facility] Urine phencyclidine (PCP) de tectionOrdered By: Rachel Joiner on 09-04-2024 Phencyclidine Ql (U) Negative < 25 ng/mL [facility] Urine sediment bacteria coun t by microscopy (number/high power field)Ordered By: Rachel Joiner on 09-04-2024 Bacteria LM.HPF (Urine sed) [#/Area] 0 /[HPF] None Seen [facility] Urine specific gravity measu rementOrdered By: Rachel Joiner on 09-04-2024 Specific gravity (U) [Rel density] 1.020 1.002-1.030 [facility] Urine total bilirubin detect ion by test stripOrdered By: Rachel Joiner on 09-04-2024 Urine total bilirubin detection by test strip 1 mg/dL High Normal [facility] Urine urobilinogen measureme ntOrdered By: Rachel Joiner on 09-04-2024 Urobilinogen Ql (U) 1 mg/dl High Normal [facility] Urobilinogen Ql (U)Ordered B y: Rachel Joiner on 09-04-2024 Urobilinogen (U) [Mass/Vol] 1 mg/dL High Normal [facility] Venous blood ammonia measure mentOrdered By: Rachel Joiner on 09-04-2024 Ammonia (P) [Moles/Vol] 26.0 umol/L [facility] Venous blood ammonia measurement 26.0 umol/L [facility] White blood cell countOrdere d By: Rachel Joiner on 09-04-2024 Urine WBC 5-10 SEEN /hpf 0-5 [facility] Comment on above: Previous reported re sult: 0 SEEN /hpfEdited by: DANIEL on 09/04/24:2337 AMENDED REPORT 09/04/24 2337 WBC previously reported as: 0 SEEN /hpf White blood cell count 5-10 SEEN /hpf 0-5 [facility] White blood cell count 5-10 SEEN /hpf 0-5 [facility] pH (U)Ordered By: Rachel lambert on 09-04-2024 Urine pH 6.0 5.0 - 8.0 [facility] Absolute lymphocyte countOrd ered By: Bola Meraz on 09-02-2024 Lymphocytes Auto (Unsp spec) [#/Vol] 1.04 10*3/uL 0.83-4.51 [facility] Absolute neutrophil countOrd ered By: Bola Meraz on 09-02-2024 Neutrophils (Bld) [#/Vol] 14.0 10*3/uL High 2.0-7.7 [facility] Absolute neutrophil count 14.0 X10^3/uL High 2.0-7.7 [facility] Automated lymphocyte count a s percentage of total leukocytesOrdered By: Bola Meraz on 09-02-2024 Lymphocytes/100 WBC Auto (Unsp spec) 6.3 % Low 19-41 [facility] Basophil percentageOrdered B y: Bola Meraz on 09-02-2024 Basophils/100 WBC (Bld) 0.4 % 0-1 [facility] Basophil percentage 0.4 % 0-1 [facility] Blood urea nitrogen (BUN)/cr eatinine ratioOrdered By: Bola Meraz on 09-02-2024 Urea nitrogen/Creatinine [Mass ratio] 16.9 mg/mg 10-20 [facility] Blood urea nitrogen (BUN)/creatinine ratio 16.9 RATIO 10-20 [facility] Calcium [Mass/Vol]Ordered By : Bola Meraz on 09-02-2024 Serum or plasma calcium measurement (mass/volume) 8.9 mg/dL 8.5-10.1 [facility] Carbon dioxide measurementOr dered By: Bola Meraz on 09-02-2024 CO2 [Moles/Vol] 19.0 mmol/L Low 21.0-32.0 [facility] Carbon dioxide measurement 19.0 mmol/L Low 21.0-32.0 [facility] Chloride measurementOrdered By: Bola Meraz on 09-02-2024 Chloride [Moles/Vol] 107 mmol/L 98-107 [facility] Chloride measurement 107 mmol/L 98-107 [facility] Creatinine [Mass/Vol]Ordered By: Bola Meraz on 09-02-2024 Serum or plasma creatinine measurement (mass/volume) 2.54 mg/dL High 0.70-1.30 [facility] Eosinophil percentageOrdered By: Bola Meraz on 09-02-2024 Eosinophils/100 WBC (Bld) 1.3 % 0-5 [facility] Eosinophil percentage 1.3 % 0-5 [facility] Erythrocyte distribution wid th (RBC) [Ratio]Ordered By: Bola Meraz on 09-02-2024 Erythrocyte distribution width ratio 15.7 % High 11.6-14.6 [facility] Erythrocyte distribution width standard deviation 47.0 fl High 35.1-43.9 [facility] Erythrocyte distribution wid th ratioOrdered By: Bola Meraz on 09-02-2024 Erythrocyte distribution width (RBC) [Ratio] 15.7 % High 11.6-14.6 [facility] Erythrocyte distribution wid th standard deviationOrdered By: Bola Meraz on 09-02-2024 Erythrocyte distribution width (RBC) [Entitic vol] 47.0 fL High 35.1-43.9 [facility] Erythrocyte distribution width (RBC) [Ratio] 47.0 fl High 35.1-43.9 [facility] Estimated glomerular filtrat ion rate (GFR) AmericanOrdered By: Bola Meraz on 09-02-2024 Estimated GFR (MDRD) Amer 34 mL/min Low >60 [facility] Comment on above: GFR Calc Estimated glomerular filtration rate (GFR) 34 mL/min Low >60 [facility] Estimation of creatinine carolina aranceOrdered By: Bola Meraz on 09-02-2024 Estimated Creatinine Clearance Calc 37.67 ml/min [facility] Estimation of creatinine clearance 37.67 ml/min [facility] Glomerular filtration rate ( GFR) estimationOrdered By: Bola Meraz on 09-02-2024 Estimated GFR (MDRD) Non-Af Amer 28 mL/min Low >60 [facility] Comment on above: Non- GFR Calc GFR/1.73 sq M.predicted among non-blacks MDRD (S/P/Bld) [Vol rate/Area] 28 mL/min/{1.73_m2} Low >60 [facility] Glomerular filtration rate (GFR) estimation 28 mL/min Low >60 [facility] Glucose measurementOrdered B y: Bola Meraz on 09-02-2024 Glucose [Mass/Vol] 187 mg/dL [address] [facility] Comment on above: Fasting Glucose resu lt greater than or equal to 126 mg/dL suggests DIABETES MELLITUS per A.D.A. criteria. Glucose measurement 187 mg/dL [address] [facility] Glucose measurement at bedsi deOrdered By: Rick Carlin on 09-02-2024 Bedside Glucose (Misc Panel) 168 mg/dL [address] Comment on above: MANAGEMENT OF PATIEN T CARE PER NURSING PROTOCOL Glucose [Mass/Vol] 168 mg/dL [address] [facility] Glucose measurement at bedside 168 mg/dL [address] [facility] Hematocrit Auto (Bld) [Volum e fraction]Ordered By: Bola Meraz on 09-02-2024 Hematocrit (Bld) [Volume fraction] 30.8 % Low 40-54 [facility] Automated blood hematocrit (percentage) 30.8 % Low 40-54 [facility] Hemoglobin measurementOrdere d By: Bola Meraz on 09-02-2024 Hemoglobin (Bld) [Mass/Vol] 10.7 g/dL Low 13.0-16.5 [facility] Hemoglobin measurement 10.7 g/dL Low 13.0-16.5 [facility] Immature granulocytes/100 WB C Auto (Bld)Ordered By: Bola Meraz on 09-02-2024 Immature granulocytes/100 WBC (Bld) 1.300 % High 0.0-0.9 [facility] Comment on above: IG% - Immature Granu locytes (promyelocytes, myelocytes and metamyelocytes) > 1% indicates that a LEFT SHIFT is Present. Automated immature granulocyte percentage 1.300 % High 0.0-0.9 [facility] Lymphocytes Auto (Unsp spec) [#/Vol]Ordered By: Bola Meraz on 09-02-2024 Lymphocytes (Bld) [#/Vol] 1.04 10*3/uL 0.83-4.51 [facility] Absolute lymphocyte count 1.04 X10^3/uL 0.83-4.51 [facility] Lymphocytes/100 WBC Auto (Un sp spec)Ordered By: Bola Meraz on 09-02-2024 Lymphocytes/100 WBC (Bld) 6.3 % Low 19-41 [facility] Automated lymphocyte count as percentage of total leukocytes 6.3 % Low 19-41 [facility] MCV (RBC) [Entitic vol]Order ed By: Bola Meraz on 09-02-2024 MCV (mean corpuscular volume) determination 83.7 fL 80-94 [facility] MCV (mean corpuscular volume ) determinationOrdered By: Bola Meraz on 09-02-2024 MCV (RBC) [Entitic vol] 83.7 fL 80-94 [facility] Mean corpuscular hemoglobin (MCH) determinationOrdered By: Bola Meraz on 09-02-2024 MCH (RBC) [Entitic mass] 29.1 pg 27.0-32.0 [facility] Mean corpuscular hemoglobin (MCH) determination 29.1 pg 27.0-32.0 [facility] Mean corpuscular hemoglobin concentration (MCHC) determinationOrdered By: Bola Meraz on 09-02-2024 MCHC (RBC) [Mass/Vol] 34.7 g/dL 32-36 [facility] Mean corpuscular hemoglobin concentration (MCHC) determination 34.7 g/dL -36 [facility] Mean platelet volume determi nationOrdered By: Bola Meraz on 09-02-2024 Platelet mean volume (Bld) [Entitic vol] 12.8 fL High 6.2-12.0 [facility] Mean platelet volume determination 12.8 fl High 6.2-12.0 [facility] Monocyte percentageOrdered B y: Bola Meraz on 09-02-2024 Monocytes/100 WBC (Bld) 6.0 % 0-10 [facility] Monocyte percentage 6.0 % 0-10 [facility] Neutrophil percentageOrdered By: Bola Meraz on 09-02-2024 Neutrophils/100 WBC (Bld) 84.7 % High 47-70 [facility] Neutrophil percentage 84.7 % High 47-70 [facility] Nucleated red blood cell per centageOrdered By: Bola Meraz on 09-02-2024 Nucleated RBC/100 WBC (Bld) [Ratio] 0 % 0-5 [facility] Nucleated red blood cell percentage 0 % 0-5 [facility] Platelet countOrdered By: Oliver on 09-02-2024 Platelets (Bld) [#/Vol] 82 10*3/uL Low 150-450 [facility] Platelet count 82 K/mm3 Low 150-450 [facility] Potassium measurementOrdered By: Bola Meraz on 09-02-2024 Potassium [Moles/Vol] 4.0 mmol/L 3.5-5.1 [facility] Potassium measurement 4.0 mmol/L 3.5-5.1 [facility] RBC Auto (Bld) [#/Vol]Ordere d By: Bola Meraz on 09-02-2024 RBC (Bld) [#/Vol] 3.68 10*6/uL Low 4.6-6.2 [facility] Automated blood erythrocyte count 3.68 M/mm3 Low 4.6-6.2 [facility] Serum anion gap measurementO rdered By: Bola Meraz on 09-02-2024 Anion gap [Moles/Vol] 8 mmol/L 5-15 [facility] Serum anion gap measurement 8 5-15 [facility] Serum or plasma calcium roosevelt urement (mass/volume)Ordered By: Bola Meraz on 09-02-2024 Calcium [Mass/Vol] 8.9 mg/dL 8.5-10.1 [facility] Serum or plasma creatinine m easurement (mass/volume)Ordered By: Bola Meraz on 09-02-2024 Creatinine [Mass/Vol] 2.54 mg/dL High 0.70-1.30 [facility] Comment on above: The validity of the calculated GFR & GFRAA in patients over 70 years has not been determined. Clinical correlation is essential. Serum or plasma urea nitroge n measurement (mass/volume)Ordered By: Bola Meraz on 09-02-2024 Urea nitrogen [Mass/Vol] 43 mg/dL High -18 [facility] Sodium levelOrdered By: Deanna Meraz on 09-02-2024 Sodium [Moles/Vol] 133 mmol/L Low 136-145 [facility] Sodium level 133 mmol/L Low 136-145 [facility] Urea nitrogen [Mass/Vol]Orde red By: Bola Meraz on 09-02-2024 Serum or plasma urea nitrogen measurement (mass/volume) 43 mg/dL High -18 [facility] White blood cell (WBC) count Ordered By: Bola Meraz on 09-02-2024 WBC (Bld) [#/Vol] 16.5 10*3/uL High 4.4-11.0 [facility] White blood cell (WBC) count 16.5 K/mm3 High 4.4-11.0 [facility] ALP [Catalytic activity/Vol] Ordered By: Maria Guadalupe Shore on 08-30-2024 Serum or plasma alkaline phosphatase measurement 143 U/L High 45-117 [facility] ALT [Catalytic activity/Vol] Ordered By: Maria Guadalupe Shore on 08-30-2024 Serum or plasma alanine aminotransferase (ALT) measurement 19 U/L 16-61 [facility] Albumin [Mass/Vol]Ordered By : Maria Guadalupe Shore on 08-30-2024 Serum or plasma albumin measurement (mass/volume) 1.9 g/dL Low 3.2-5.0 [facility] Bilirubin directOrdered By: Maria Guadalupe Shore on 08-30-2024 Bilirubin.direct [Mass/Vol] 0.83 mg/dL High 0.00-0.30 [facility] Bilirubin, totalOrdered By: Maria Guadalupe Shore on 08-30-2024 Bilirubin [Mass/Vol] 1.30 mg/dL High 0.20-1.00 [facility] Comment on above: For patients on eltr ombopag therapy, use of Dimension Greer TBIL is not recommended. Bilirubin, total 1.30 mg/dL High 0.20-1.00 [facility] Bilirubin.direct [Mass/Vol]O rdered By: Maria Guadalupe Shore on 08-30-2024 Bilirubin direct 0.83 mg/dL High 0.00-0.30 [facility] Ferritin measurementOrdered By: Maria Guadalupe Shore on 08-30-2024 Ferritin [Mass/Vol] 85 ng/mL 388 [facility] Ferritin measurement 85 ng/mL 388 [facility] HbA1c (Bld) [Mass fraction]O rdered By: Maria Guadalupe Shore on 08-30-2024 Hemoglobin A1c percentage 7.9 % High 3.8-5.6 [facility] Hemoglobin A1c percentageOrd ered By: Maria Guadalupe Shore on 08-30-2024 HbA1c (Bld) [Mass fraction] 7.9 % High 3.8-5.6 [facility] Comment on above: Normal < 5.7 % Predi abetic 5.7 - 6.4 % Diabetic >or= 6.5 % Please note range changes. Iron (Unsp spec) [Mass/Mass] Ordered By: Maria Guadalupe Shore on 08-30-2024 Iron [Mass/Vol] 62 ug/dL Low 65-175 [facility] Iron measurement (mass/mass) 62 ug/dL Low 65-175 [facility] Iron measurement (mass/mass) Ordered By: Maria Guadalupe Shore on 08-30-2024 Iron (Unsp spec) [Mass/Mass] 62 ug/dL Low 65-175 [facility] Iron saturation [Mass fracti on]Ordered By: Maria Guadalupe Shore on 08-30-2024 Iron Saturation 33.9 % 15.0-55.0 [facility] Serum or plasma iron saturation measurement (mass fraction) 33.9 % 15.0-55.0 [facility] Laboratory - Chemistry and C hemistry - challengeOrdered By: Maria Guadalupe Shore on 08-30-2024 AST [Catalytic activity/Vol] 22 U/L 15-37 [facility] No Panel InformationOrdered By: Maria Guadalupe Shore on 08-30-2024 22 U/L 15-37 [facility] Serum globulin measurementOr dered By: Maria Guadalupe Shore on 08-30-2024 Globulin (S) [Mass/Vol] 3.4 g/dL 2.2-4.2 [facility] Serum globulin measurement 3.4 g/dL 2.2-4.2 [facility] Serum or plasma alanine thomas otransferase (ALT) measurementOrdered By: Maria Guadalupe Shore on 08-30-2024 ALT [Catalytic activity/Vol] 19 U/L 16-61 [facility] Serum or plasma albumin roosevelt urement (mass/volume)Ordered By: Maria Guadalupe Shore on 08-30-2024 Albumin [Mass/Vol] 1.9 g/dL Low 3.2-5.0 [facility] Serum or plasma alkaline kendrick sphatase measurementOrdered By: Maria Guadalupe Shore on 08-30-2024 ALP [Catalytic activity/Vol] 143 U/L High 45-117 [facility] Serum or plasma iron saturat ion measurement (mass fraction)Ordered By: Maria Guadalupe Shore on 08-30-2024 Iron saturation [Mass fraction] 33.9 % 15.0-55.0 [facility] TIBCOrdered By: Maria Guadalupe Shore on 08-30-2024 Total Iron Binding Capacity 183 ug/dL Low 250-450 [facility] TIBC 183 ug/dL Low 250-450 [facility] Total proteinOrdered By: Aut davi Shore on 08-30-2024 Protein [Mass/Vol] 5.3 g/dL Low 6.4-8.2 [facility] Total protein 5.3 g/dL Low 6.4-8.2 [facility] Venous blood ammonia measure mentOrdered By: Maria Guadalupe Shore on 08-30-2024 Ammonia (P) [Moles/Vol] 64.0 umol/L High 11-32 [facility] Venous blood ammonia measurement 64.0 umol/L High 11-32 [facility] Activated partial thrombopla stin time (aPTT) in platelet poor plasma by coagulation aOrdered By: Luis Carlos Anderson on 08-29-2024 aPTT Coag (PPP) [Time] 40.9 s High 24.1-36.2 [facility] Albumin to globulin ratioOrd ered By: Luis Carlos Anderson on 08-29-2024 Albumin/Globulin [Mass ratio] 0.4 {ratio} Low 0.9-2.4 [facility] Albumin to globulin ratio 0.4 RATIO Low 0.9-2.4 [facility] Bacteria LM.HPF (Urine sed) [#/Area]Ordered By: Luis Carlos Anderson on 08-29-2024 Urine Bacteria RARE /hpf None Seen [facility] Urine sediment bacteria count by microscopy (number/high power field) RARE /hpf None Seen [facility] Bilirubin Test strip Ql (U)O rdered By: Luis Carlos Anderson on 08-29-2024 Bilirubin Ql (U) 1 mg/dL High Negative [facility] Comment on above: COLOR OF URINE MAY A FFECT DIPSTICK RESULTS. Clarity (U)Ordered By: Juan Alberto Anderson on 08-29-2024 Urine clarity Clear Clear [facility] Color (U)Ordered By: Luis Carlos Anderson on 08-29-2024 Urine color determination Yellow Yellow [facility] Creatinine (U) [Mass/Vol]Ord ered By: White on 08-29-2024 Urine creatinine measurement (mass/volume) 173.00 mg/dL NO RANGE EST. [facility] Epithelial cells.squamous LM Ql (Urine sed)Ordered By: Luis Carlos Anderson on 08-29-2024 Epithelial cells.squamous LM.HPF (Urine sed) [#/Area] 0 /[HPF] 0-5 [facility] Squamous epithelial cells detection in urine sediment by light microscopy 0 SEEN /hpf 0-5 [facility] Glucose Ql (U)Ordered By: Yaya Anderson on 08-29-2024 Glucose (U) [Mass/Vol] 50 mg/dL High Normal [facility] Urine glucose detection 50 mg/dl High Normal [facility] International normalized rat io (INR) calculationOrdered By: Luis Carlos Anderson on 08-29-2024 INR Coag (Bld) [Relative time] 1.7 {INR} [facility] International normalized ratio (INR) calculation 1.7 [facility] Ketones Test strip Ql (U)Ord ered By: Luis Carlos Anderson on 08-29-2024 Ketones Ql (U) Negative Negative [facility] Leukocyte esterase Test stri p Ql (U)Ordered By: Luis Carlos Anderson on 08-29-2024 Urine leukocyte esterase detection by dipstick 500 /ul High Negative [facility] Lipase measurementOrdered By : Luis Carlos Anderson on 08-29-2024 Lipase [Catalytic activity/Vol] 26 U/L 13-75 [facility] Comment on above: Please note:LIPASE r evised reference range effective 22. New Lipase methodology. Expected to produce lower values than the previous assay method. NEW Reference Range: 13 - 75 U/L Lipase measurement 26 U/L 13-75 [facility] Magnesium measurementOrdered By: Maria Guadalupe Shore on 08-29-2024 Magnesium [Mass/Vol] 2.7 mg/dL High 1.6-2.6 [facility] Magnesium measurement 2.7 mg/dL High 1.6-2.6 [facility] Microscopic analysis of urin e for red blood cells (RBC)Ordered By: Luis Carlos Anderson on 08-29-2024 Urine RBC 5-10 SEEN /hpf 0-5 [facility] Microscopic analysis of urine for red blood cells (RBC) 5-10 SEEN /hpf 0-5 [facility] Mucus LM Ql (Urine sed)Order ed By: Luis Carlos Anderson on 08-29-2024 Mucus Ql (Urine sed) 1+ /hpf [facility] Mucus detection in urine sediment by light microscopy 1+ /hpf [facility] Nitrite Test strip Ql (U)Ord ered By: Luis Carlos Anderson on 08-29-2024 Nitrite Ql (U) Negative Negative [facility] Phosphorus measurementOrdere d By: Maria Guadalupe Shore on 08-29-2024 Phosphorus Level 4.9 mg/dL 2.5-4.9 [facility] Phosphorus measurement 4.9 mg/dL 2.5-4.9 [facility] Protein Test strip Ql (U)Ord ered By: Luis Carlos Anderson on 08-29-2024 Protein Ql (U) 30 mg/dl High Negative [facility] Urine protein assay by test strip, semi-quantitative 30 mg/dl High Negative [facility] Prothrombin timeOrdered By: Luis Carlos Anderson on 08-29-2024 PT Coag (PPP) [Time] 20.0 s High 11.7-14.9 [facility] Prothrombin time 20.0 SECONDS High 11.7-14.9 [facility] Sodium urOrdered By: Maria Guadalupe Shore on 08-29-2024 Sodium (U) [Moles/Vol] 30 mmol/L [facility] Establ[facility] S[facility] [Moles/Vol] 30 [facility]L Not Establ. [facility] Specific gravity (U) [Rel de nsity]Ordered By: Luis Carlos Anderson on 08-29-2024 Urine specific gravity measurement 1.015 1.002-1.030 [facility] Squamous epithelial cells de tection in urine sediment by light microscopyOrdered By: Luis Carlos Anderson on 08-29-2024 Epithelial cells.squamous LM Ql (Urine sed) 0 SEEN /hpf 0-5 [facility] Urine blood detectionOrdered By: Luis Carlos Anderson on 08-29-2024 Urine Occult Blood 150 /ul High Negative [facility] Urine blood detection 150 /ul High Negative [facility] Urine clarityOrdered By: Joann Anderson on 08-29-2024 Clarity (U) Clear Clear [facility] Urine color determinationOrd ered By: Luis Carlos Anderson on 08-29-2024 Color (U) Yellow Yellow [facility] Urine creatinine measurement (mass/volume)Ordered By: Maria Guadalupe Shore on 08-29-2024 Creatinine (U) [Mass/Vol] 173.00 mg/dL NO RANGE EST. [facility] Urine cultureOrdered By: Joann Anderson on 08-29-2024 Bacteria identified Cx Nom (U) Culture exhibits no growth. [facility] Urine culture Culture exhibits no growth. [facility] Urine glucose detectionOrder ed By: Luis Carlos Anderson on 08-29-2024 Glucose Ql (U) 50 mg/dl High Normal [facility] Urine ketones detection by t est stripOrdered By: Luis Carlos Anderson on 08-29-2024 Urine ketones detection by test strip Negative Negative [facility] Urine leukocyte esterase det ection by dipstickOrdered By: Luis Carlos Anderson on 08-29-2024 Leukocyte esterase Test strip Ql (U) 500 /ul High Negative [facility] Urine pHOrdered By: Luis Carlos hammond on 08-29-2024 pH (U) 6.0 [pH] 5.0 - 8.0 [facility] Urine sediment bacteria coun t by microscopy (number/high power field)Ordered By: Luis Carlos Anderson on 08-29-2024 Bacteria LM.HPF (Urine sed) [#/Area] RARE /hpf None Seen [facility] Urine specific gravity measu rementOrdered By: Luis Carlos Anderson on 08-29-2024 Specific gravity (U) [Rel density] 1.015 1.002-1.030 [facility] Urine total bilirubin detect ion by test stripOrdered By: Luis Carlos Anderson on 08-29-2024 Urine total bilirubin detection by test strip 1 mg/dL High Normal [facility] Urine urobilinogen measureme ntOrdered By: Luis Carlos Anderson on 08-29-2024 Urobilinogen Ql (U) 1 mg/dl High Normal [facility] Urobilinogen Ql (U)Ordered B y: Luis Carlos Anderson on 08-29-2024 Urobilinogen (U) [Mass/Vol] 1 mg/dL High Normal [facility] White blood cell countOrdere d By: Luis Carlos Anderson on 08-29-2024 Urine WBC 10-25 SEEN /hpf 0-5 [facility] White blood cell count 10-25 SEEN /hpf 0-5 [facility] White blood cell count 10-25 SEEN /hpf 0-5 [facility] aPTT Coag (PPP) [Time]Ordere d By: Luis Carlos Anderson on 08-29-2024 aPTT Coag (Bld) [Time] 40.9 s High 24.1-36.2 [facility] Activated partial thromboplastin time (aPTT) in platelet poor plasma by coagulation a 40.9 Seconds High 24.1-36.2 [facility] pH (U)Ordered By: Ashu on 08-29-2024 Urine pH 6.0 5.0 - 8.0 [facility] Vital Signs Date Time Vital Sign Value Performing Clinician Facility 02-16-2025 19:34-0400 Body temperature 97.8 [degF] No Primary Care Physician [facility] 02-16-2025 19:34-0400 Diastolic blood pressure 61 mm[Hg] No Primary Care Physician [facility] 02-16-2025 19:34-0400 Heart rate 76 /min No Primary Care Physician [facility] 02-16-2025 19:34-0400 Respiratory rate 18 /min No Primary Care Physician [facility] 02-16-2025 19:34-0400 SaO2% (BldA) [Mass fraction] 96 % No Primary Care Physician [facility] 02-16-2025 19:34-0400 Systolic blood pressure 102 mm[Hg] No Primary Care Physician [facility] 02-16-2025 17:20-0400 Body height 175.26 cm No Primary Care Physician [facility] 02-13-2025 21:17-0400 Body temperature 98.8 [degF] No Primary Care Physician [facility] 02-13-2025 21:17-0400 Diastolic blood pressure 75 mm[Hg] No Primary Care Physician [facility] 02-13-2025 21:17-0400 Heart rate 59 /min No Primary Care Physician [facility] 02-13-2025 21:17-0400 Respiratory rate 16 /min No Primary Care Physician [facility] 02-13-2025 21:17-0400 SaO2% (BldA) [Mass fraction] 100 % No Primary Care Physician [facility] 02-13-2025 21:17-0400 Systolic blood pressure 97 mm[Hg] No Primary Care Physician [facility] 02-13-2025 16:30-0400 Body height 175.26 cm No Primary Care Physician [facility] 02-13-2025 16:30-0400 Body mass index (BMI) [Ratio] 33 kg/m2 No Primary Care Physician [facility] 02-13-2025 16:30-0400 Body weight 101.5 kg No Primary Care Physician [facility] 02-11-2025 12:35-0400 Diastolic blood pressure 55 mm[Hg] No Primary Care Physician [facility] 02-11-2025 12:35-0400 Heart rate 63 /min No Primary Care Physician [facility] 02-11-2025 12:35-0400 Respiratory rate 18 /min No Primary Care Physician [facility] 02-11-2025 12:35-0400 Systolic blood pressure 85 mm[Hg] No Primary Care Physician [facility] 02-11-2025 12:33-0400 Body temperature 97.3 [degF] No Primary Care Physician [facility] 02-08-2025 01:26-0400 Body temperature 97.6 [degF] No Primary Care Physician [facility] 02-08-2025 01:26-0400 Diastolic blood pressure 63 mm[Hg] No Primary Care Physician [facility] 02-08-2025 01:26-0400 Heart rate 62 /min No Primary Care Physician [facility] 02-08-2025 01:26-0400 Respiratory rate 18 /min No Primary Care Physician [facility] 02-08-2025 01:26-0400 SaO2% (BldA) [Mass fraction] 100 % No Primary Care Physician [facility] 02-08-2025 01:26-0400 Systolic blood pressure 97 mm[Hg] No Primary Care Physician [facility] 02-07-2025 22:20-0400 Body mass index (BMI) [Ratio] 34.8 kg/m2 No Primary Care Physician [facility] 02-07-2025 22:20-0400 Body weight 107.1 kg No Primary Care Physician [facility] 02-07-2025 19:24-0400 Body height 175.26 cm No Primary Care Physician [facility] 01-31-2025 18:35-0400 Body temperature 98.1 [degF] No Primary Care Physician [facility] 01-31-2025 18:35-0400 Diastolic blood pressure 86 mm[Hg] No Primary Care Physician [facility] 01-31-2025 18:35-0400 Heart rate 100 /min No Primary Care Physician [facility] 01-31-2025 18:35-0400 Respiratory rate 16 /min No Primary Care Physician [facility] 01-31-2025 18:35-0400 SaO2% (BldA) [Mass fraction] 100 % No Primary Care Physician [facility] 01-31-2025 18:35-0400 Systolic blood pressure 127 mm[Hg] No Primary Care Physician [facility] 01-31-2025 09:49-0400 Body height 182.88 cm No Primary Care Physician [facility] 01-31-2025 09:49-0400 Body weight 110.3 kg No Primary Care Physician [facility] 01-28-2025 09:46-0400 Body mass index (BMI) [Ratio] 33 kg/m2 No Primary Care Physician [facility] 01-28-2025 09:00-0400 Body temperature 98 [degF] No Primary Care Physician [facility] 01-28-2025 09:00-0400 Diastolic blood pressure 67 mm[Hg] No Primary Care Physician [facility] 01-28-2025 09:00-0400 Heart rate 106 /min No Primary Care Physician [facility] 01-28-2025 09:00-0400 Respiratory rate 15 /min No Primary Care Physician [facility] 01-28-2025 09:00-0400 SaO2% (BldA) [Mass fraction] 100 % No Primary Care Physician [facility] 01-28-2025 09:00-0400 Systolic blood pressure 125 mm[Hg] No Primary Care Physician [facility] 01-28-2025 02:56-0400 Body height 187.96 cm No Primary Care Physician [facility] 01-28-2025 02:56-0400 Body mass index (BMI) [Ratio] 31.7 kg/m2 No Primary Care Physician [facility] 01-28-2025 02:56-0400 Body weight 112.2 kg No Primary Care Physician [facility] 01-21-2025 13:00-0400 Body temperature 97.7 [degF] No Primary Care Physician [facility] 01-21-2025 13:00-0400 Diastolic blood pressure 60 mm[Hg] No Primary Care Physician [facility] 01-21-2025 13:00-0400 Heart rate 91 /min No Primary Care Physician [facility] 01-21-2025 13:00-0400 Respiratory rate 18 /min No Primary Care Physician [facility] 01-21-2025 13:00-0400 SaO2% (BldA) [Mass fraction] 97 % No Primary Care Physician [facility] 01-21-2025 13:00-0400 Systolic blood pressure 100 mm[Hg] No Primary Care Physician [facility] 01-21-2025 05:13-0400 Body mass index (BMI) [Ratio] 35.8 kg/m2 No Primary Care Physician [facility] 01-21-2025 05:13-0400 Body weight 110.1 kg No Primary Care Physician [facility] 01-17-2025 14:51-0400 Body height 175.26 cm No Primary Care Physician [facility] 01-09-2025 14:01-0400 Heart rate 69 /min No Primary Care Physician [facility] 01-09-2025 14:01-0400 Respiratory rate 16 /min No Primary Care Physician [facility] 01-09-2025 14:01-0400 SaO2% (BldA) [Mass fraction] 100 % No Primary Care Physician [facility] 01-09-2025 14:00-0400 Diastolic blood pressure 59 mm[Hg] No Primary Care Physician [facility] 01-09-2025 14:00-0400 Systolic blood pressure 107 mm[Hg] No Primary Care Physician [facility] 01-09-2025 13:04-0400 Body temperature 98 [degF] No Primary Care Physician [facility] 01-09-2025 10:10-0400 Body height 175.26 cm No Primary Care Physician [facility] 01-09-2025 10:10-0400 Body mass index (BMI) [Ratio] 29.5 kg/m2 No Primary Care Physician [facility] 01-09-2025 10:10-0400 Body weight 90.6 kg No Primary Care Physician [facility] 01-05-2025 16:00-0400 Body temperature 98.1 [degF] No Primary Care Physician [facility] 01-05-2025 16:00-0400 Diastolic blood pressure 60 mm[Hg] No Primary Care Physician [facility] 01-05-2025 16:00-0400 Heart rate 73 /min No Primary Care Physician [facility] 01-05-2025 16:00-0400 Respiratory rate 16 /min No Primary Care Physician [facility] 01-05-2025 16:00-0400 SaO2% (BldA) [Mass fraction] 94 % No Primary Care Physician [facility] 01-05-2025 16:00-0400 Systolic blood pressure 103 mm[Hg] No Primary Care Physician [facility] 01-05-2025 04:44-0400 Body mass index (BMI) [Ratio] 29.9 kg/m2 No Primary Care Physician [facility] 01-05-2025 04:44-0400 Body weight 92.2 kg No Primary Care Physician [facility] 01-02-2025 10:11-0400 Body height 175.26 cm No Primary Care Physician [facility] 01-02-2025 06:34-0400 Body temperature 97.8 [degF] No Primary Care Physician [facility] 01-02-2025 06:34-0400 Diastolic blood pressure 73 mm[Hg] No Primary Care Physician [facility] 01-02-2025 06:34-0400 Heart rate 68 /min No Primary Care Physician [facility] 01-02-2025 06:34-0400 Respiratory rate 20 /min No Primary Care Physician [facility] 01-02-2025 06:34-0400 SaO2% (BldA) [Mass fraction] 100 % No Primary Care Physician [facility] 01-02-2025 06:34-0400 Systolic blood pressure 105 mm[Hg] No Primary Care Physician [facility] 01-02-2025 02:59-0400 Body height 175.26 cm No Primary Care Physician [facility] 01-02-2025 02:59-0400 Body mass index (BMI) [Ratio] 27.5 kg/m2 No Primary Care Physician [facility] 01-02-2025 02:59-0400 Body weight 84.5 kg No Primary Care Physician [facility] 12-30-2024 05:24-0400 Body temperature 97.9 [degF] No Primary Care Physician [facility] 12-30-2024 05:24-0400 Diastolic blood pressure 52 mm[Hg] No Primary Care Physician [facility] 12-30-2024 05:24-0400 Heart rate 71 /min No Primary Care Physician [facility] 12-30-2024 05:24-0400 Respiratory rate 18 /min No Primary Care Physician [facility] 12-30-2024 05:24-0400 SaO2% (BldA) [Mass fraction] 93 % No Primary Care Physician [facility] 12-30-2024 05:24-0400 Systolic blood pressure 93 mm[Hg] No Primary Care Physician [facility] 12-30-2024 01:07-0400 Body height 175.26 cm No Primary Care Physician [facility] 12-30-2024 01:07-0400 Body mass index (BMI) [Ratio] 28.4 kg/m2 No Primary Care Physician [facility] 12-30-2024 01:07-0400 Body weight 87.3 kg No Primary Care Physician [facility] 12-26-2024 14:27-0400 Body temperature 97 [degF] No Primary Care Physician [facility] 12-26-2024 14:27-0400 Diastolic blood pressure 58 mm[Hg] No Primary Care Physician [facility] 12-26-2024 14:27-0400 Heart rate 64 /min No Primary Care Physician [facility] 12-26-2024 14:27-0400 Respiratory rate 16 /min No Primary Care Physician [facility] 12-26-2024 14:27-0400 SaO2% (BldA) [Mass fraction] 97 % No Primary Care Physician [facility] 12-26-2024 14:27-0400 Systolic blood pressure 90 mm[Hg] No Primary Care Physician [facility] 12-26-2024 10:00-0400 Body height 175.26 cm No Primary Care Physician [facility] 12-26-2024 10:00-0400 Body mass index (BMI) [Ratio] 29.7 kg/m2 No Primary Care Physician [facility] 12-26-2024 10:00-0400 Body weight 91.4 kg No Primary Care Physician [facility] 12-02-2024 12:13-0400 Body temperature 98.7 [degF] No Primary Care Physician [facility] 12-02-2024 12:13-0400 Diastolic blood pressure 68 mm[Hg] No Primary Care Physician [facility] 12-02-2024 12:13-0400 Heart rate 86 /min No Primary Care Physician [facility] 12-02-2024 12:13-0400 Respiratory rate 18 /min No Primary Care Physician [facility] 12-02-2024 12:13-0400 SaO2% (BldA) [Mass fraction] 97 % No Primary Care Physician [facility] 12-02-2024 12:13-0400 Systolic blood pressure 117 mm[Hg] No Primary Care Physician [facility] 12-02-2024 02:57-0400 Body mass index (BMI) [Ratio] 33 kg/m2 No Primary Care Physician [facility] 12-02-2024 02:57-0400 Body weight 101.6 kg No Primary Care Physician [facility] 11-29-2024 09:53-0400 Body height 175.26 cm No Primary Care Physician [facility] 11-25-2024 18:31-0400 Body temperature 98.2 [degF] No Primary Care Physician [facility] 11-25-2024 18:31-0400 Diastolic blood pressure 80 mm[Hg] No Primary Care Physician [facility] 11-25-2024 18:31-0400 Heart rate 97 /min No Primary Care Physician [facility] 11-25-2024 18:31-0400 Respiratory rate 18 /min No Primary Care Physician [facility] 11-25-2024 18:31-0400 SaO2% (BldA) [Mass fraction] 98 % No Primary Care Physician [facility] 11-25-2024 18:31-0400 Systolic blood pressure 122 mm[Hg] No Primary Care Physician [facility] 11-24-2024 15:17-0400 Body weight 102.7 kg No Primary Care Physician [facility] 11-21-2024 05:32-0400 Body mass index (BMI) [Ratio] 33.4 kg/m2 No Primary Care Physician [facility] 11-21-2024 05:00-0400 Heart rate 77 /min No Primary Care Physician [facility] 11-21-2024 04:51-0400 Body temperature 98.2 [degF] No Primary Care Physician [facility] 11-21-2024 04:51-0400 Diastolic blood pressure 57 mm[Hg] No Primary Care Physician [facility] 11-21-2024 04:51-0400 Respiratory rate 16 /min No Primary Care Physician [facility] 11-21-2024 04:51-0400 SaO2% (BldA) [Mass fraction] 97 % No Primary Care Physician [facility] 11-21-2024 04:51-0400 Systolic blood pressure 127 mm[Hg] No Primary Care Physician [facility] 11-21-2024 01:32-0400 Body height 175.26 cm No Primary Care Physician [facility] 11-21-2024 01:32-0400 Body mass index (BMI) [Ratio] 34.3 kg/m2 No Primary Care Physician [facility] 11-21-2024 01:32-0400 Body weight 105.4 kg No Primary Care Physician [facility] 11-12-2024 18:03-0400 SaO2% (BldA) [Mass fraction] 99 % KATHIE POWERS [facility] Comment on above: Order Comment: Specimen Type: ARTERIAL B LOOD SPECIMENOrdering Facility: [facility] Address: [address] [place] [address] Performed By: #### A LLBG ####[facility] LABCLIA [id number] [place] [address] [place] 11-10-2024 23:40-0400 Body temperature 97.8 [degF] No Primary Care Physician [facility] 11-10-2024 23:40-0400 Diastolic blood pressure 70 mm[Hg] No Primary Care Physician [facility] 11-10-2024 23:40-0400 Heart rate 110 /min No Primary Care Physician [facility] 11-10-2024 23:40-0400 Respiratory rate 18 /min No Primary Care Physician [facility] 11-10-2024 23:40-0400 SaO2% (BldA) [Mass fraction] 97 % No Primary Care Physician [facility] 11-10-2024 23:40-0400 Systolic blood pressure 116 mm[Hg] No Primary Care Physician [facility] 11-10-2024 04:54-0400 Body mass index (BMI) [Ratio] 36.7 kg/m2 No Primary Care Physician [facility] 11-10-2024 04:54-0400 Body weight 112.8 kg No Primary Care Physician [facility] 11-09-2024 14:30-0400 Body height 175.26 cm No Primary Care Physician [facility] 10-29-2024 01:23-0400 Body temperature 97.4 [degF] No Primary Care Physician [facility] 10-29-2024 01:23-0400 Diastolic blood pressure 54 mm[Hg] No Primary Care Physician [facility] 10-29-2024 01:23-0400 Heart rate 77 /min No Primary Care Physician [facility] 10-29-2024 01:23-0400 Respiratory rate 14 /min No Primary Care Physician [facility] 10-29-2024 01:23-0400 SaO2% (BldA) [Mass fraction] 97 % No Primary Care Physician [facility] 10-29-2024 01:23-0400 Systolic blood pressure 97 mm[Hg] No Primary Care Physician [facility] 10-28-2024 21:43-0400 Body mass index (BMI) [Ratio] 30.4 kg/m2 No Primary Care Physician [facility] 10-28-2024 21:43-0400 Body weight 93.1 kg No Primary Care Physician [facility] 10-28-2024 17:13-0400 Body height 175.01 cm No Primary Care Physician [facility] 10-04-2024 21:45-0500 Diastolic blood pressure 89 mm[Hg] Maurice wen MD Work Phone: [facility] 10-04-2024 21:45-0500 Heart rate 94 /min Maurice Rincon MD Work Phone: [facility] 10-04-2024 21:45-0500 Respiratory rate 18 /min Maurice Rincon MD Work Phone: [facility] 10-04-2024 21:45-0500 SaO2% (BldA) [Mass fraction] 100 % Maurice Rincon MD Work Phone: [facility] 10-04-2024 21:45-0500 Systolic blood pressure 152 mm[Hg] Maurice hobson MD Work Phone: [facility] 10-04-2024 12:03-0500 Body temperature 97.59 [degF] Maurice Rincon MD Work Phone: [facility] 10-04-2024 12:03-0500 Body weight 117.48 kg Maurice Rincon MD Work Phone: [facility] 09-29-2024 10:21-0500 Body temperature 97.3 [degF] No Primary Care Physician [facility] 09-29-2024 10:21-0500 Diastolic blood pressure 74 mm[Hg] No Primary Care Physician [facility] 09-29-2024 10:21-0500 Heart rate 81 /min No Primary Care Physician [facility] 09-29-2024 10:21-0500 Respiratory rate 18 /min No Primary Care Physician [facility] 09-29-2024 10:21-0500 Systolic blood pressure 138 mm[Hg] No Primary Care Physician [facility] 09-15-2024 03:49-0500 Body temperature 97.8 [degF] No Primary Care Physician [facility] 09-15-2024 03:49-0500 Diastolic blood pressure 70 mm[Hg] No Primary Care Physician [facility] 09-15-2024 03:49-0500 Heart rate 80 /min No Primary Care Physician [facility] 09-15-2024 03:49-0500 Respiratory rate 17 /min No Primary Care Physician [facility] 09-15-2024 03:49-0500 SaO2% (BldA) [Mass fraction] 96 % No Primary Care Physician [facility] 09-15-2024 03:49-0500 Systolic blood pressure 142 mm[Hg] No Primary Care Physician [facility] 09-14-2024 04:07-0500 Body mass index (BMI) [Ratio] 36.7 kg/m2 No Primary Care Physician [facility] 09-14-2024 04:07-0500 Body weight 112.8 kg No Primary Care Physician [facility] 09-10-2024 14:03-0500 Body height 175.26 cm No Primary Care Physician [facility] 09-07-2024 01:24-0500 Inhaled oxygen concentration 21 % No Primary Care Physician [facility] 09-06-2024 05:00-0500 Inhaled oxygen flow rate 8 L/min No Primary Care Physician [facility] 09-02-2024 15:36-0500 Body weight 104 kg No Primary Care Physician [facility] 09-02-2024 14:54-0500 Body temperature 98.1 [degF] No Primary Care Physician [facility] 09-02-2024 14:54-0500 Diastolic blood pressure 62 mm[Hg] No Primary Care Physician [facility] 09-02-2024 14:54-0500 Heart rate 60 /min No Primary Care Physician [facility] 09-02-2024 14:54-0500 Respiratory rate 18 /min No Primary Care Physician [facility] 09-02-2024 14:54-0500 SaO2% (BldA) [Mass fraction] 99 % No Primary Care Physician [facility] 09-02-2024 14:54-0500 Systolic blood pressure 118 mm[Hg] No Primary Care Physician [facility] 09-02-2024 03:57-0500 Body mass index (BMI) [Ratio] 33.8 kg/m2 No Primary Care Physician [facility] 08-21-2024 16:33-0500 Body temperature 98.5 [degF] No Primary Care Physician [facility] 08-21-2024 16:33-0500 Diastolic blood pressure 78 mm[Hg] No Primary Care Physician [facility] 08-21-2024 16:33-0500 Heart rate 61 /min No Primary Care Physician [facility] 08-21-2024 16:33-0500 Respiratory rate 12 /min No Primary Care Physician [facility] 08-21-2024 16:33-0500 SaO2% (BldA) [Mass fraction] 97 % No Primary Care Physician [facility] 08-21-2024 16:33-0500 Systolic blood pressure 114 mm[Hg] No Primary Care Physician [facility] 08-21-2024 13:52-0500 Body mass index (BMI) [Ratio] 33 kg/m2 No Primary Care Physician [facility] 08-21-2024 13:52-0500 Body weight 101.5 kg No Primary Care Physician [facility] Encounters Encounter Date Encounter Type Care Provider Facility Start: 02-16-2025 ambulatory Jae Mosteller Fac ility:[facility] Start: 02-16-2025 Evaluation and manag ement of inpatient No Primary Care Physician -Medical Surgical 3 Start: 02-16-2025 Dr. Jae Ash DO -Medical Surgical 3 Work Phone: Start: 02-16-2025 Dr. Jerald Sherwood MD -[facility] Start: 02-16-2025 ambulatory Jerald Sherwood Facility:[facility] Start: 02-13-2025 End: 02-13-2025 No Primary Care Physician -Emergency Department Work Phone: Start: 02-13-2025 End: 02-13-2025 Emergency department patient visit No Primary Care Physician -Emergency Department Start: 02-11-2025 Mina Blood DO -Ultras [facility] Work Phone: Start: 02-11-2025 ambulatory Mina Blood [...] management of inpatient No Primary Care Physician [facility] Work Phone: Start: 01-28-2025 End: 01-31-2025 Dr. Boone Izquierdo [facility] Inpatient Physicians Work Phone: Start: 01-21-2025 Dr. Anurag Irene MD -[facility] Work Phone: Start: 01-20-2025 Dr. Anurag Irene MD -[facility] Work Phone: Start: 01-19-2025 Dr. Anurag Irene MD [facility] Work Phone: Start: 01-18-2025 Dr. Anurag Irene MD [facility] Work Phone: Start: 01-17-2025 Dr. Anurag Irene MD [facility] Work Phone: Start: 01-16-2025 Dr. Cielo Tovar MD [facility] Inpatient Physicians Work Phone: Start: 01-15-2025 Dr. Cielo Tovar MD [facility] Work Phone: Start: 01-14-2025 Dr. Cielo Tovar MD [facility] In[facility] Work Phone: Start: 01-13-2025 Dr. Cielo Tovar MD [facility] Work Phone: Start: 01-12-2025 Dr. Cielo Tovar MD [facility] Work Phone: Start: 01-11-2025 Dr. Jefferson Malave MD - [facility] Start: 01-11-2025 Dr. Cielo Tovar MD [facility] In[facility] Work Phone: Start: 01-11-2025 Dr. Bola Meraz DO -[facility] Start: 01-10-2025 Dr. Cielo Tovar MD [facility] In[facility] Work Phone: Start: 01-09-2025 ambulatory [facility] Facility :[facility] Start: 01-09-2025 End: 01-21-2025 Evaluation and management of inpatient No Primary Care Physician [facility] Work Phone: Start: 01-09-2025 End: 01-21-2025 Dr. Yaritza Leo DO -Intensive Care Unit Work Phone: Start: 01-05-2025 Dr. Hill Acuña MD -[facility] Inpatient Physicians Work Phone: Start: 01-04-2025 Dr. Hill Acuña MD [facility] Work Phone: Start: 01-03-2025 Dr. Hill Acuña MD [facility] Work Phone: Start: 01-02-2025 ambulatory Buster Fuchs Fac ility:[facility] Start: 01-02-2025 End: 01-05-2025 Evaluation and management of inpatient No Primary Care Physician [facility] Work Phone: Start: 01-02-2025 End: 01-05-2025 Dr. Buster Fuchs MD -Progressive Care Unit Work Phone: Start: 12-30-2024 End: 12-30-2024 No Primary Care Physician -Emergency Department Work Phone: Start: 12-30-2024 End: 12-30-2024 Emergency department patient visit No Primary Care Physician [facility] Work Phone: Start: 12-26-2024 End: 12-26-2024 No Primary Care Physician -Emergency Department Work Phone: Start: 12-26-2024 End: 12-26-2024 Emergency department patient visit No Primary Care Physician [facility] Work Phone: Start: 12-15-2024 End: 12-15-2024 ambulatory No Primary Care Physician [facility] Work Phone: Start: 12-15-2024 End: 12-15-2024 Josy Elias NP-C -Ultrasound [facility] Work Phone: Start: 12-15-2024 End: 12-15-2024 ambulatory Josy Elias Facility:[facility] Start: 12-07-2024 End: 12-10-2024 ambulatory Eva Pichardo MD Work Phone: Urology Start: 12-07-2024 End: 12-07-2024 Josy Elias NP-C -[facility] Start: 12-07-2024 End: 12-07-2024 ambulatory Josy Elias Facility:[facility] Start: 12-02-2024 Dr. Hill Acuña [...] Evaluation and management of inpatient Kathie Powers Facility:[facility] Start: 11-28-2024 End: 12-02-2024 Dr. Hill Acuña MD -Progressive Care Unit Work Phone: Start: 11-25-2024 Dr. Anurag Irene MD -[facility] Inpatient Physicians Work Phone: Start: 11-24-2024 Dr. Anurag Irene MD -[facility] Inpatient Physicians Work Phone: Start: 11-23-2024 ambulatory Jae Ash Fac ility:[facility] Start: 11-23-2024 End: 11-25-2024 Evaluation and management of inpatient Jae edvin Facility:[facility] Start: 11-23-2024 End: 11-25-2024 Dr. Anurag Irene MD -Medical Surgical 3 Work Phone: Start: 11-22-2024 Dr. Anurag Irene MD -[facility] Inpatient Physicians Work Phone: Start: 11-21-2024 ambulatory Jae Ash Fac ility:[facility] Start: 11-21-2024 observation encounter No Prima ry Care Physician [facility] Work Phone: Start: 11-21-2024 Dr. Jae Ash DO -Medical Surgical 3 Work Phone: Start: 11-18-2024 Patient encounter status Jeremi Morgano RN Work Phone: [facility] [...] 11-15-2024 End: 11-15-2024 Social Work Marah Claroswellington RETAIL SECURITY PROFESSIONAL Work Phone: [facility] Start: 11-12-2024 End: 11-12-2024 Patient encounter status [facility] Start: 11-12-2024 End: 11-12-2024 Orders Only Liver Txp Coordinator Work Phone: Transplant Center Comment on above: Metabolic dysfunctio n-associated steatohepatitis (MASH) (Primary Dx) Transplant Evaluatio n Consent Patient Education (T ransplant) Liver transplant can didate (Primary Dx); Metabolic dysfunction-associated steatohepatitis (MASH) Start: 11-11-2024 End: 11-18-2024 Evaluation and management of inpatient KATHIE POWERS Facility:[facility] Start: 11-10-2024 Dr. Kathie Powers MD [facility] Work Phone: Start: 11-09-2024 Dr. Kathie Poewrs MD -[facility] Work Phone: Start: 11-08-2024 Dr. Kathie Powers MD -[facility] Work Phone: Start: 11-07-2024 Dr. Hill Acuña MD -[facility] Work Phone: Start: 11-06-2024 Dr. Hill Acuña MD -[facility] Inpatient Physicians Work Phone: Start: 11-05-2024 Dr. Hill Acuña MD -[facility] Inpatient Physicians Work Phone: Start: 11-04-2024 Dr. Hill Acuña MD -[facility] Inpatient Physicians Work Phone: Start: 11-03-2024 Dr. Hill Acuña MD -[facility] Inpatient Physicians Work Phone: Start: 11-02-2024 Dr. Hill Acuña MD -[facility] Inpatient Physicians Work Phone: Start: 11-01-2024 Dr. Hill Acuña MD -[facility] Inpatient Physicians Work Phone: Start: 11-01-2024 [facility] Start: 10-31-2024 Dr. Buster Fuchs MD -[place] [facility] Work Phone: Start: 10-30-2024 [facility] Start: 10-30-2024 Dr. Buster Fuchs MD -[place] [facility] Work Phone: Start: 10-29-2024 Dr. Bola Meraz DO [facility] Start: 10-29-2024 ambulatory [facility] Facility :[facility] Start: 10-29-2024 End: 11-11-2024 Evaluation and management of inpatient Dr. Hill Caro DO -Intensive Care Unit Work Phone: Start: 10-29-2024 End: 11-11-2024 Dr. Kathie Powers MD -Progressive Care Unit Work Phone: Start: 10-19-2024 ambulatory No Primary Car e Physician Facility:[facility] Start: 10-04-2024 End: 10-04-2024 Emergency department patient visit MAURICE RINCON [facility] Emergency Medicine Comment on above: Other ascites (Prima ry Dx); Abdominal pain, generalized; Other cirrhosis of liver; Peripheral edema; Coagulopathy (Multi); Hyperbilirubinemia; Cirrhosis of liver with ascites, unspecified hepatic cirrhosis type (Multi) Start: 09-29-2024 ambulatory No Primary Car e Physician Facility:[facility] Start: 09-29-2024 Non-patient / Non-visit Jasmine nunez CHORE TENDER-C -[facility] Start: 09-29-2024 Jasmine Morocho CHORE TENDER-C - [facility] Start: 09-29-2024 End: 09-29-2024 ambulatory No Primary Care Physician [facility] Work Phone: Start: 09-29-2024 End: 09-29-2024 Patient encounter procedure No Primary Care Physician -Ultrasound, [facility] Work Phone: Start: 09-29-2024 End: 09-29-2024 No Primary Care Physician -Ultrasound, [facility] Work Phone: Start: 09-29-2024 End: 09-29-2024 ambulatory No Primary Care Physician Facility:[facility] Start: 09-14-2024 Non-patient / Non-visit Dr. Boone James [facility] Inpatient Physicians Work Phone: Start: 09-14-2024 [facility]do [facility] Work Phone: Start: 09-13-2024 Non-patient / Non-visit Dr. Boone James [facility] Inpatient Physicians Work Phone: Start: 09-13-2024 Dr. Boone Izquierdo [facility] Inpatient Physicians Work Phone: Start: 09-12-2024 Non-patient / Non-visit Dr. Noonan [facility] Inpatient Physicians Work Phone: Start: 09-12-2024 Dr. Jae Ash [facility] Inpatient Physicians Work Phone: Start: 09-11-2024 Non-patient / Non-visit Dr. Noonan [facility] Inpatient Physicians Work Phone: Start: 09-11-2024 Dr. Jae Ash [facility] Inpatient Physicians Work Phone: Start: 09-10-2024 Non-patient / Non-visit Dr. Noonan [facility] Inpatient Physicians Work Phone: Start: 09-10-2024 [facility] Work Phone: Start: 09-09-2024 Non-patient / Non-visit Dr. Slaughter [facility] Inpatient Physicians Work Phone: Start: 09-09-2024 Dr. Jae Ash [facility] Inpatient Physicians Work Phone: Start: 09-08-2024 Non-patient / Non-visit Dr. Anurag Irene [facility] Inpatient Physicians Work Phone: Start: 09-08-2024 Dr. Anurag Irene [facility] Inpatient Physicians Work Phone: Start: 09-07-2024 Non-patient / Non-visit Dr. Anurag Irene MD [facility] Inpatient Physicians Work Phone: Start: 09-07-2024 Dr. Anurag Irene [facility] Inpatient Physicians Work Phone: Start: 09-06-2024 Non-patient / Non-visit Dr. Anurag Irene [facility] Inpatient Physicians Work Phone: Start: 09-06-2024 Dr. Anurag Irene MD [facility] Inpatient Physicians Work Phone: Start: 09-05-2024 ambulatory Hill de Kyle Facili ty:[facility] Start: 09-05-2024 End: 09-15-2024 Evaluation and management of inpatient Dr. Boone Izquierdo -Progressive Care Unit Work Phone: Start: 09-05-2024 End: 09-15-2024 Dr. Boone Izquierdo -Progressive Care Unit Work Phone: Start: 09-02-2024 Non-patient / Non-visit Dr. Lissette Carlin [facility] Inpatient Physicians Work Phone: Start: 09-02-2024 Dr. Rick gutierrez [facility] Inpatient Physicians Work Phone: Start: 09-01-2024 Non-patient / Non-visit Niranjan Frie nd DO -[facility] Start: 09-01-2024 Niranjan Friend DO -[facility] Start: 09-01-2024 Non-patient / Non-visit Dr. Lissette Carlin [facility] Inpatient Physicians Work Phone: Start: 09-01-2024 Dr. Rick gutierrez [facility] Inpatient Physicians Work Phone: Start: 08-31-2024 Non-patient / Non-visit Niranjan Frie nd DO -[facility] Start: 08-31-2024 Niranjan Friend DO -[facility] Start: 08-31-2024 Non-patient / Non-visit Dr. Lissette Carlin [facility] Inpatient Physicians Work Phone: Start: 08-31-2024 Dr. Rick gutierrez [facility] Inpatient Physicians Work Phone: Start: 08-31-2024 Non-patient / Non-visit Dr. Bola Patiño own DO -[facility] Start: 08-31-2024 Dr. Bola Meraz DO -[facility] Start: 08-30-2024 Non-patient / Non-visit Niranjan Frie nd DO -[facility] Start: 08-30-2024 Niranjan Friend DO -[facility] Start: 08-30-2024 Non-patient / Non-visit Dr. Lissette Carlin [facility] Inpatient Physicians Work Phone: Start: 08-30-2024 Dr. Rick gutierrez [facility] Inpatient Physicians Work Phone: Start: 08-30-2024 Non-patient / Non-visit Dr. Bola Patiño own DO -[facility] Start: 08-30-2024 Dr. Bola Meraz DO -[facility] Start: 08-29-2024 ambulatory Niranjan Friend Facility [facility] Start: 08-29-2024 End: 09-02-2024 Evaluation and management of inpatient Dr. Rick Carlin DO -Intensive Care Unit Work Phone: Start: 08-29-2024 End: 09-02-2024 Dr. Rick Carlin DO -Intensive Care Unit Work Phone: Start: 08-21-2024 End: 08-21-2024 Dr. aDnny Hutton DO -Emergency Department Work Phone: Start: [...] Start: 11-21-2024 Plain chest X-ray No Pr [facility] Care Physician Start: 11-18-2024 Antibody screen KATHIE P IERCE Comment on above: Order Comment: Speci men Type: BLOOD SPECIMENOrdering Facility: [facility] Address: [address] [place] [address] Performed By: #### T SCR ####CC MAIN BLOOD BANKCLIA [id number] [address] Start: 11-16-2024 End: 11-16-2024 Oscar Abreu RN Work Phone: Start: 11-15-2024 Antibody screen KATHIE Alcaraz IESABIHA Comment on above: Order Comment: Speci men Type: BLOOD SPECIMENOrdering Facility: [facility] Address: [address] [place] [address] Performed By: #### T SCR ####CC MAIN BLOOD BANKCLIA [id number] [address] Start: 11-13-2024 Lipid 1996 panel - S sandie or Plasma Marah Arauz RETAIL SECURITY PROFESSIONAL Work Phone: Start: 11-12-2024 Antibody screen KATHIE LUCAS Comment on above: Order Comment: Speci men Type: BLOOD SPECIMENOrdering Facility: [facility] Address: [address] [place] [address] Performed By: #### T SCR ####CC MAIN BLOOD BANKCLIA [id number] [address] Start: 11-10-2024 Urine microscopy: red cells [...] Start: 09-05-2024 Assay of lactate No [facility] Care Physician Start: 09-05-2024 Folic acid measurement [...] Physician Start: 08-29-2024 Plain chest X-ray No [facility] Care Physician Start: 08-29-2024 Triacylglycerol lipa [...] 2:20 PM EDT Office Visit Family Medicine [address] [address] Alex Alexandre MD [address] [place] [id number] Hospital discharge, diabetes mx, need for repeat vaccines, and consideration of CT chest [facility] [place] Comment on above: Hospital discharge, diabetes mx, need fo r repeat vaccines, and consideration of CT chest Start: 02-16-2025 Prothrombin time [facility] Start: 02-16-2025 Hospital admission, emergency, from emergency room, medical nature [facility] Start: 02-16-2025 Verification routine [facility] Start: 02-16-2025 Admission procedure [facility] Start: 02-13-2025 [facility] Start: 02-08-2025 Centesis [facility] Start: 02-08-2025 End: 02-08-2025 [facility] Start: 02-02-2025 End: 02-02-2025 Patient encounter procedure 02/02/2025 9:20 AM EDT Office Visit [facility] [place] [address] [place] [address] Ray Vega MD [address] [place] [address] est care [facility] [place] Comment on above: est care Start: 01-31-2025 Patient discharge [facility] Start: 01-31-2025 Referral to service [facility] Start: 01-31-2025 [facility] Start: 01-29-2025 [facility] Start: 01-28-2025 Blood culture [facility] Start: 01-28-2025 Application of intermittent pneumatic compression device [facility] Start: 01-28-2025 Following clinical pathway protocol [facility] Start: 01-28-2025 Assessment of risk of venous thromboembolism [facility] Start: 01-28-2025 Care regimes management [facility] Start: 01-28-2025 Documentation procedure [facility] Start: 01-28-2025 Insertion of catheter into peripheral vein [facility] Start: 01-28-2025 Notification of physician [facility] Start: 01-28-2025 Providing care according to standard [facility] Start: 01-28-2025 Provision of activity privileges [facility] Start: 01-28-2025 Referral to occupational therapist [facility] Start: 01-28-2025 Referral to service [facility] Start: 01-28-2025 Speech therapy assessment [facility] Start: 01-28-2025 End: 01-28-2025 [facility] Start: 01-28-2025 Admission procedure [facility] Start: 01-28-2025 End: 01-28-2025 [facility] Start: 01-28-2025 End: 01-28-2025 [facility] Start: 01-28-2025 [facility] Start: 01-21-2025 Patient discharge [facility] Start: 01-18-2025 End: 01-18-2025 Microbial culture, body fluid [facility] Start: 01-18-2025 Care planning and problem solving actions [facility] Start: 01-18-2025 Anaerobic microbial culture [facility] Start: 01-17-2025 [facility] Start: 01-16-2025 [facility] Start: 01-15-2025 [facility] Start: 01-14-2025 Consultation for pain [facility] Start: 01-14-2025 [facility] Start: 01-13-2025 Administration of blood product [facility] Start: 01-13-2025 [facility] Start: 01-12-2025 [facility] Start: 01-11-2025 Application of intermittent pneumatic compression device [facility] Start: 01-11-2025 Referral to general surgeon [facility] Start: 01-11-2025 [facility] Start: 01-10-2025 Care planning and problem solving actions [facility] Start: 01-09-2025 Assessment of risk of venous thromboembolism [facility] Start: 01-09-2025 Cardiac monitoring [facility] Start: 01-09-2025 Catheterization of vein [facility] Start: 01-09-2025 Inhalation therapy procedure [facility] Start: 01-09-2025 Insertion of catheter into peripheral vein [facility] Start: 01-09-2025 Measuring intake and output [facility] Start: 01-09-2025 Notification of physician [facility] Start: 01-09-2025 Patient referral to dietitian [facility] Start: 01-09-2025 Providing care according to standard [facility] Start: 01-09-2025 Referral to occupational therapist [facility] Start: 01-09-2025 Referral to service [facility] Start: 01-09-2025 Vital signs measurements [facility] Start: 01-09-2025 [facility] Start: 01-09-2025 End: 01-09-2025 Following clinical pathway protocol [facility] Start: 01-09-2025 Bacterial nucleic acid assay [facility] Start: 01-09-2025 Verification routine [facility] Start: 01-09-2025 Admission procedure [facility] Start: 01-09-2025 Hospital admission, emergency, from emergency room, medical nature [facility] Start: 01-09-2025 End: 01-09-2025 [facility] Start: 01-09-2025 Consultation [facility] Start: 01-05-2025 Patient discharge [facility] Start: 01-04-2025 [facility] Start: 01-03-2025 End: 01-03-2025 [facility] Start: 01-03-2025 End: 01-03-2025 Care regimes management [facility] Start: 01-03-2025 Notification of physician [facility] Start: 01-03-2025 [facility] Start: 01-02-2025 Application of intermittent pneumatic compression device [facility] Start: 01-02-2025 Ambulation without limitation [facility] Start: 01-02-2025 Assessment of risk of venous thromboembolism [facility] Start: 01-02-2025 Care regimes management [facility] Start: 01-02-2025 Insertion of catheter into peripheral vein [facility] Start: 01-02-2025 Measuring intake and output [facility] Start: 01-02-2025 Notification of physician [facility] Start: 01-02-2025 Providing care according to standard [facility] Start: 01-02-2025 Referral to occupational therapist [facility] Start: 01-02-2025 Referral to service [facility] Start: 01-02-2025 End: 01-02-2025 [facility] Start: 01-02-2025 Admission procedure [facility] Start: 01-02-2025 Verification routine [facility] Start: 01-02-2025 Hospital admission, emergency, from emergency room, medical nature [facility] Start: 01-02-2025 End: 01-02-2025 [facility] Start: 01-02-2025 Consultation [facility] Start: 01-02-2025 Patient referral to dietitian [facility] Start: 12-30-2024 Assay of magnesium [facility] Start: 12-30-2024 Assay of troponin quantitative [facility] Start: 12-30-2024 Basic metabolic panel calcium total [facility] Start: 12-30-2024 Blood count complete auto&auto difrntl wbc [facility] Start: 12-30-2024 Culture bacterial quanttative colony count urine [facility] Start: 12-30-2024 Culture bct isol&prsmptv id isolate ea urine [facility] Start: 12-30-2024 Ecg routine ecg w/least 12 lds trcg only w/o i&r [facility] Start: 12-30-2024 Emergency department visit high/urgent severity [facility] Start: 12-30-2024 Gluc bld gluc mntr dev cleared fda spec home use [facility] Start: 12-30-2024 Iv infusion hydration each additional hour [facility] Start: 12-30-2024 Iv infusion therapy/prophylaxis /dx 1st to 1 hr [facility] Start: 12-30-2024 Radiologic exam chest 2 views [facility] Start: 12-30-2024 Urnls dip stick/tablet reagent auto microscopy [facility] Start: 12-30-2024 [facility] Start: 12-30-2024 End: 12-30-2024 [facility] Start: 12-29-2024 End: 12-29-2024 Patient encounter procedure Endocrinology Comment on above: Diabetes maangement Diabetes maangement/ LVM OF SOONER APPOINTMENT 11/21 Start: 12-26-2024 [facility] Start: 12-26-2024 End: 12-26-2024 [facility] Start: 12-23-2024 End: 12-23-2024 Patient encounter procedure 12/23/2024 9:45 AM EDT Office Visit Vascular Medicine [address] [place] [address] Pamella Frances, INDUSTRIAL SAFETY AND HEALTH MANAGER.METAL MODEL MAKER [address] [place] [address] HOSPITAL FOLLOW UP [facility] Comment on above: HOSPITAL FOLLOW UP Start: 12-12-2024 Hepatitis B Vaccine (2 of 2 - CpG 2-dose series) Hepatitis B Vaccine (2 of 2 - CpG 2-dose series) [facility] Start: 12-07-2024 End: 12-07-2024 Patient encounter procedure 12/07/2024 3:45 PM EDT Office Visit Urology [address] [address] Eva Pichardo MD [address] [place] [address] L ureteral stent, s/p staghorn calculi Urology Comment on above: L ureteral stent, s/p staghorn calculi Start: 12-07-2024 End: 12-07-2024 Patient encounter procedure 12/07/2024 11:20 AM EDT Office Visit [facility] [address] [place] [address] Ksenia Hoyos, INDUSTRIAL SAFETY AND HEALTH MANAGER.METAL MODEL MAKER [address] [place] [address] Hospital discharge, diabetes mx, need for repeat vaccines, and consideration of CT chest [facility] Comment on above: Hospital discharge, diabetes mx, need fo r repeat vaccines, and consideration of CT chest Start: 12-02-2024 Patient discharge [facility] Start: 12-01-2024 Consultation [facility] Start: 11-29-2024 [facility] Start: 11-28-2024 Enteric precautions [facility] Start: 11-28-2024 Application of intermittent pneumatic compression device [facility] Start: 11-28-2024 Following clinical pathway protocol [facility] Start: 11-28-2024 Assessment of risk of venous thromboembolism [facility] Start: 11-28-2024 Care regimes management [facility] Start: 11-28-2024 Insertion of catheter into peripheral vein [facility] Start: 11-28-2024 Measuring intake and output [facility] Start: 11-28-2024 Notification of physician [facility] Start: 11-28-2024 Providing care according to standard [facility] Start: 11-28-2024 Provision of activity privileges [facility] Start: 11-28-2024 Referral to occupational therapist [facility] Start: 11-28-2024 Referral to service [facility] Start: 11-28-2024 End: 11-28-2024 [facility] Start: 11-28-2024 Admission procedure [facility] Start: 11-28-2024 Inhalation therapy procedure [facility] Start: 11-28-2024 Patient referral to dietitian [facility] Start: 11-25-2024 Patient discharge [facility] Start: 11-24-2024 Administration of blood product [facility] Start: 11-23-2024 Admission procedure [facility] Start: 11-22-2024 [facility] Start: 11-21-2024 Care regimes management [facility] Start: 11-21-2024 Notification of physician [facility] Start: 11-21-2024 Following clinical pathway protocol [facility] Start: 11-21-2024 Ambulation without limitation [facility] Start: 11-21-2024 Assessment of risk of venous thromboembolism [facility] Start: 11-21-2024 Insertion of catheter into peripheral vein [facility] Start: 11-21-2024 Measuring intake and output [facility] Start: 11-21-2024 Providing care according to standard [facility] Start: 11-21-2024 Referral to occupational therapist [facility] Start: 11-21-2024 Referral to service [facility] Start: 11-21-2024 End: 11-21-2024 [facility] Start: 11-21-2024 Verification routine [facility] Start: 11-21-2024 Admission procedure [facility] Start: 11-21-2024 Hospital admission, emergency, from emergency room, medical nature [facility] Start: 11-21-2024 End: 11-21-2024 [facility] Start: 11-21-2024 Consultation [facility] Start: 11-18-2024 End: 11-18-2024 Patient encounter procedure 11/18/2024 3:30 PM EDT Office Visit Cardiology [address] [place] [address] G81-25; Liver Tx Evaluation; CONTACT PRECAUTIONS - C-Diff; last of the day Cardiology Comment on above: G81-25; Liver Tx Evaluation; CONTACT PRECAUTIONS - C-Diff; last of the day Start: 11-17-2024 End: 11-17-2024 Patient encounter procedure Pulmonary Medicine Comment on above: C-diff precuations/RA-2L/Reg WC Start: 11-15-2024 End: 11-15-2024 Patient encounter procedure 11/15/2024 1:15 PM EDT Office Visit Dentistry [address] [address] Izabela Harvey, DDS [address] [place] [address] BEDSIDE - TRANSPLANT [facility] - [id number] - Consult Placed 11/12/24 Dentistry Comment on above: BEDSIDE - TRANSPLANT [place] - G081-25 [id number] [phone] - Consult Placed 11/12/24 Start: 11-10-2024 Patient discharge [facility] Start: 11-09-2024 Consultation [facility] Start: 11-09-2024 Referral to gastroenterology service [facility] Start: 11-09-2024 Glucose measurement, body fluid [facility] Start: 11-08-2024 Urinary bladder residual urine study [facility] Start: 11-08-2024 [facility] Start: 11-05-2024 Removal of urinary catheter [facility] Start: 11-04-2024 [facility] Start: 10-31-2024 [facility] Start: 10-30-2024 Attention to flatus tube [facility] Start: 10-30-2024 Referral to gastroenterology service [facility] Start: 10-29-2024 Insertion of nasogastric tube [facility] Start: 10-29-2024 Bacteria identified in Blood by Culture Blood Culture [facility] Start: 10-29-2024 Referral to service [facility] Start: 10-29-2024 Application of intermittent pneumatic compression device [facility] Start: 10-29-2024 Following clinical pathway protocol [facility] Start: 10-29-2024 Cardiac monitoring [facility] Start: 10-29-2024 Catheterization of vein [facility] Start: 10-29-2024 Enteric precautions [facility] Start: 10-29-2024 Notification of physician [facility] Start: 10-29-2024 Vital signs measurements [facility] Start: 10-29-2024 [facility] Start: 10-29-2024 End: 10-29-2024 Consultation [facility] Start: 10-29-2024 Clostridioides difficile DNA [Presence] in Unspecified specimen by ANANTH with probe detection [facility] Start: 10-29-2024 Complete ultrasound of kidneys and bladder Kidney and Bladder [facility] Start: 10-29-2024 Lactoferrin [Presence] in Stool by Immunoassay [facility] Start: 10-29-2024 Nucleic acid assay [facility] Start: 10-29-2024 Admission procedure [facility] Start: 10-29-2024 End: 10-29-2024 Hospital admission, emergency, from emergency room, medical nature [facility] Start: 10-29-2024 End: 10-29-2024 [facility] Start: 10-29-2024 Patient referral to dietitian [facility] Start: 10-28-2024 [facility] Start: 10-28-2024 Bacteria identified in Urine by Culture Urine Culture [facility] Start: 09-14-2024 Patient discharge [facility] Start: 09-06-2024 Referral to service [facility] Start: 09-06-2024 Referral to occupational therapist [facility] Start: 09-06-2024 Referral to crop supervisor [facility] Start: 09-06-2024 Consultation [facility] Start: 09-06-2024 Care planning and problem solving actions [facility] Start: 09-06-2024 [facility] Start: 09-05-2024 Application of intermittent pneumatic compression device [facility] Start: 09-05-2024 Continuous positive airway pressure ventilation treatment [facility] Start: 09-05-2024 Cardiac monitoring [facility] Start: 09-05-2024 Care regimes management [facility] Start: 09-05-2024 Catheterization of vein [facility] Start: 09-05-2024 Consultation [facility] Start: 09-05-2024 Notification of physician [facility] Start: 09-05-2024 Vital signs measurements [facility] Start: 09-05-2024 End: 09-05-2024 [facility] Start: 09-05-2024 Following clinical pathway protocol [facility] Start: 09-05-2024 Admission procedure [facility] Start: 09-05-[address] [facility] Start: 09-02-2024 Patient discharge [facility] Start: 08-31-2024 Care planning and problem solving actions [facility] Start: 08-30-2024 [facility] Start: 08-29-2024 Following clinical pathway protocol [facility] Start: 08-29-2024 Assessment of risk of venous thromboembolism [facility] Start: 08-29-2024 Care regimes management [facility] Start: 08-29-2024 Fall prevention [facility] Start: 08-29-2024 Inhalation therapy procedure [facility] Start: 08-29-2024 Insertion of catheter into peripheral vein [facility] Start: 08-29-2024 Measuring intake and output [facility] Start: 08-29-2024 Notification of physician [facility] Start: 08-29-2024 [facility] Start: 08-29-2024 Providing care according to standard [facility] Start: 08-29-2024 Provision of activity privileges [facility] Start: 08-29-2024 Referral to gastroenterology service [facility] Start: 08-29-2024 Referral to crop supervisor [facility] Start: 08-29-2024 Referral to occupational therapist [facility] Start: 08-29-2024 Referral to service [facility] Start: 08-29-2024 Vital signs measurements [facility] Start: 08-29-2024 End: 08-29-2024 [facility] Start: 08-29-2024 Admission procedure [facility] Start: 08-21-2024 [facility] Start: 04-04-2024 COVID-19 Vaccine ( season) COVID-19 Vaccine ( season) [facility] Start: 04-04-2024 Influenza vaccination Influenza Vaccine (#1) [facility] Start: 2021 Prostate specific antigen measurement Prostate Cancer Screening Discussion [facility] Start: 2016 Zoster Vaccines (1 of 2) Zoster Vaccines (1 of 2) [facility] Start: 2011 Screening for malignant neoplasm of colon [facility] Start: 2001 Lipid panel Lipid Screening [facility] Start: 1988 DTaP/Tdap/Td Vaccines (1 - Tdap) DTaP/Tdap/Td Vaccines (1 - Tdap) [facility] Start: 1985 Hepatitis A Vaccine (1 of 2 - Risk 2-dose series) Hepatitis A Vaccine (1 of 2 - Risk 2-dose series) [facility] Start: 1985 Hepatitis A Vaccines (1 of 2 - Risk 2-dose series) Hepatitis A Vaccines (1 of 2 - Risk 2-dose series) [facility] Start: 1985 Hepatitis B Vaccine (1 of 3 - 19+ 3-dose series) Hepatitis B Vaccine (1 of 3 - 19+ 3-dose series) [facility] Start: 1985 Hepatitis B Vaccines (1 of 3 - 19+ 3-dose series) Hepatitis B Vaccines (1 of 3 - 19+ 3-dose series) [facility] Start: 1985 Pneumococcal vaccination Pneumococcal Vaccine (1 of 2 - PCV) [facility] Start: 1985 Pneumococcal Vaccine: 50+ [...] 1984 Hepatitis C screening Hepatitis C Screening [facility] Start: 1984 HIV screening HIV Screening [facility] Start: 1976 Glaucoma screening Diabetes: Retinopathy Screening [facility] Start: 1967 MMR Vaccines (1 of 1 - Standard series) MMR Vaccines (1 of 1 - Standard series) [facility] Start: 1966 Hemoglobin A1c measurement Diabetes: Hemoglobin A1C [facility] Start: 1966 HIV screening HIV Screening [facility] Start: 1966 Lipid panel Lipid Panel [facility] Start: 1966 Screening for malignant neoplasm of colon [facility] Start: 1966 Urine screening for protein Diabetes: Urine Protein Screening [facility] Start: 1966 Yearly Adult Physical Yearly Adult Physical [facility] Alanine aminotransfe rase [Enzymatic activity/volume] in Serum or Plasma [facility] End: 10-04-2024 Albumin [Mass/volume] in Body fluid [facility] Work Phone: Comment on above: Once (Lab) for 1 Occurrences starting until 10/04/2024 Once for 1 Occurrenc es starting 10/04/2024 until 10/04/2024 Albumin [Mass/volume ] in Serum or Plasma [facility] Alkaline phosphatase [Enzymatic activity/volume] in Serum or Plasma [facility] Anion gap in Serum o r Plasma [facility] End: 10-04-2024 Bacteria identified in Body fluid by Culture [facility] Work Phone: Comment on above: Once (Lab) for 1 Occurrences starting until 10/04/2024 Bilirubin, total measurement [facility] BUN/Creatinine ratio [facility] Calcium [Mass/volume ] in Serum or Plasma [facility] Carbon dioxide, tota l [Moles/volume] in Central venous blood [facility] End: 10-04-2024 Clostridioides difficile toxin A+B tcdA+tcdB genes [Presence] in Stool by ANANTH with probe detection C. difficile, PCR Microbiology STAT STAT (Lab) for 1 Occurrences starting 10/04/2024 until 10/04/2024 [facility] Work Phone: Comment on above: STAT (Lab) for 1 Occurrences starting until 10/04/2024 Creatinine [Mass/vol ume] in Serum or Plasma [facility] Cytology report of B carmelina fluid Cyto stain [facility] Erythrocyte mean corpuscular volume determination [facility] End: 10-04-2024 Extra Urine Toney Tube Extra Urine Toney Tube Lab Timed Once for 1 Occurrences starting 10/04/2024 until 10/04/2024 [facility] Work Phone: Comment on above: Once for 1 Occurrences starting 10/05/19 until 10/04/2024 End: 10-04-2024 Glucose [Mass/volume] in Body fluid [facility] Work Phone: Comment on above: Once (Lab) for 1 Occurrences starting until 10/04/2024 Once for 1 Occurrenc es starting 10/04/2024 until 10/04/2024 Glucose [Mass/volume ] in Serum or Plasma [facility] Glucose [Mass/volume ] in Serum or Plasma [facility] Hematocrit [Volume Fraction] of Blood [facility] Hemoglobin [Mass/vol ume] in Blood [facility] End: 10-04-2024 Hemoglobin.gastrointestin al.lower [Presence] in Stool by Immunoassay Fecal Occult Blood Immunoassy Microbiology STAT Once (Lab) for 1 Occurrences starting 10/04/2024 until 10/04/2024 [facility] Work Phone: Comment on above: Once (Lab) for 1 Occurrences starting until 10/04/2024 Hepatitis A virus Ig M Ab [Presence] in Serum [facility] Hepatitis B core ant ibody measurement, IgM type [facility] Hepatitis B surface antigen measurement [facility] Hepatitis C antibody measurement [facility] INR in Blood by Coagulation assay [facility] End: 10-04-2024 Lactate dehydrogenase [Enzymatic activity/volume] in Body fluid by Lactate to pyruvate reaction [facility] Work Phone: Comment on above: Once (Lab) for 1 Occurrences starting until 10/04/2024 Once for 1 Occurrenc es starting 10/04/2024 until 10/04/2024 Lactate dehydrogenas e [Enzymatic activity/volume] in Body fluid by Pyruvate to lactate reaction [facility] Lactic acid measurement [facility] Lactic acid measurement [facility] Leukocytes [#/volume ] in Blood [facility] Mean corpuscular hemoglobin concentration determination [facility] Mean corpuscular hemoglobin determination [facility] Measurement of renal function [facility] Neutrophil count [facility] Neutrophil percent differential count [facility] End: 10-04-2024 Non-gynecological cytology method study Cytology (Non-Gynecologic) Pathology and Cytology Routine Once (Lab) for 1 Occurrences starting 10/04/2024 until 10/04/2024 [facility] Service Area Work Phone: Comment on above: Once (Lab) for 1 Occurrences starting until 10/04/2024 Ova OR parasites identification [facility] Patient Education [facility] Work Phone: Patient referral [facility] Work Phone: End: 10-04-2024 pH of Body fluid [facility] Work Phone: Comment on above: Once (Lab) for 1 Occurrences starting until 10/04/2024 Platelets [#/volume] in Blood [facility] Potassium measurement [facility] End: 10-04-2024 Protein [Mass/volume] in Body fluid [facility] Work Phone: Comment on above: Once (Lab) for 1 Occurrences starting until 10/04/2024 Once for 1 Occurrenc es starting 10/04/2024 until 10/04/2024 Protein [Mass/volume ] in Body fluid [facility] Red blood cell count [facility] Red cell distributio n width determination [facility] Serum chloride measurement [facility] Sodium measurement [facility] End: 10-04-2024 Stool Pathogen Panel, PCR Stool Pathogen Panel, PCR Microbiology STAT Once (Lab) for 1 Occurrences starting 10/04/2024 until 10/04/2024 [facility] Work Phone: Comment on above: Once (Lab) for 1 Occurrences starting until 10/04/2024 Total protein measurement [facility] UA DIP, URINE (POC) UA DIP, URIN E (POC) Lab Routine Screening for genitourinary condition 1 Occurrences starting 12/07/2024 [facility] Work Phone: Comment on above: 1 Occurrences starting 12/07/2024 Urea nitrogen [Mass/volume] in Serum or Plasma [facility] End: 10-04-2024 Urinalysis complete W Reflex Culture panel - Urine [facility] Service Area Work Phone: Comment on above: Once (Lab) for 1 Occurrences starting until 10/04/2024 Once for 1 Occurrenc es starting 10/04/2024 until 10/04/2024 Urine culture [facility] Urine culture [facility] Urine culture [facility] Urine culture [facility] Urine culture [facility] Urine culture [facility] Urine culture [facility] Urine culture [facility] Immunizations Immunization Date Immunization Notes Care Provider Fa [facility] 11-16-2024 COVID-19 vaccine, ag e 12+ yr ([email or web address] [facility] Jeremi Abreu RN Work Phone: [facility] 11-15-2024 pneumococcal conjuga te (PCV20) vaccine, 20 valent (PREVNAR 20) Marah Arauz RETAIL SECURITY PROFESSIONAL Work Phone: [facility] 11-14-2024 hepatitis A vaccine, adult dosage Marah Arauz RETAIL SECURITY PROFESSIONAL Work Phone: [facility] 11-14-2024 Hepatitis B vaccine (recombinant), CpG adjuvanted Marah Arauz RETAIL SECURITY PROFESSIONAL Work Phone: [facility] 11-14-2024 tetanus toxoid, redu danica diphtheria toxoid, and acellular pertussis vaccine, adsorbed Marah Claroswellington RETAIL SECURITY PROFESSIONAL Work Phone: [facility] 09-20-2024 influenza, seasonal, injectable Jeremi Abreu RN Work Phone: [facility] Work Phone: 09-15-2024 tuberculin skin test ; purified protein derivative solution, intradermal Jeremi Abreu RN Work Phone: [facility] Payers Date Payer Category Payer Self-pay 2024 Medicaid [id number] 2024 Medicaid [id number] 1965 Unknown [id number] Unknown [id number] Social History Date Type Detail Facility Start: 10-04-2024 End: 02-16-2025 Tobacco smoking status NHIS Ex-smoker [facility] Work Phone: History of tobacco use Current smoker [facility] Work Phone: History of tobacco use Cigarette Smoker [facility] Work Phone: Start: 10-04-2024 End: 11-11-2024 Tobacco use and exposure Smokeless tobacco non-user [facility] Work Phone: Start: 10-04-2024 Alcoholic beverage intake Ex-drinker (finding) [facility] Work Phone: Start: 10-04-2024 End: 11-15-2024 History of Social function [facility] Start: 10-04-2024 End: 11-15-2024 Tobacco use panel [facility] Start: 1965 Sex assigned at Not on file [facility] Work Phone: Start: 09-24-2024 End: 10-04-2024 Exposure to SARS-CoV-2 (event) Not sure [facility] Work Phone: Start: 10-11-2024 End: 11-21-2024 Sex Male (finding) [facility] Start: 1965 Sex Assigned At Male [facility] Start: 11-11-2024 End: 11-18-2024 Alcoholic beverage intake Lifetime non-drinker (finding) [facility] Has the [employer], or water [employer] threatened to shut off services in your [...] Equipment Identifier Dates Cystoscopic insertion of stent ([id number]) ()[id number] FDA Start: 09-05-2024 Goals Date Patient Goal Desired Activity /State Functional Status Date Assessment Result Facility 01-31-2025 Functional status Ambulates [facility] Work Phone: 01-21-2025 Functional status Ambulates [facility] Work Phone: 01-05-2025 Functional status With Assist of 1 [facility] Work Phone: 01-05-2025 Functional status Ambulates;Bath room Privilege [facility] Work Phone: 12-02-2024 Functional status Ambulates [facility] Work Phone: 11-25-2024 Functional status Bedrest [facility] Work Phone: 11-18-2024 Are you deaf, or do you have serious difficulty hearing Yes 11/18/2024 10:13 AM EDT Anika Carolina RN Yes [facility] 11-18-2024 Are you blind, or do you have serious difficulty seeing, even when wearing glasses No 11/18/2024 10:13 AM EDT Anika Carolina, DAYSI No [facility] 11-18-2024 Do you have serious difficulty walking or climbing stairs Yes 11/18/2024 10:13 AM EDT Anika Carolina, DAYSI Yes [facility] 11-18-2024 Do you have difficul ty dressing or bathing Yes 11/18/2024 10:13 AM EDT Anika Carolina, DAYSI Yes [facility] 11-18-2024 Because of a physica l, mental, or emotional condition, do you have difficulty doing errands alone such as visiting a physician's office or shopping Yes 11/18/2024 10:13 AM EDAnika Gonzales, DAYSI Yes [facility] 11-11-2024 Functional status Bedpan [facility] Work Phone: 09-15-2024 Functional status Ambulates [facility] Work Phone: 09-02-2024 Functional status Bathroom Privilege [facility] Work Phone: Mental Status Date Assessment Result Facility 02-16-2025 Cognitive function Alert;Appropr iate;Follow s Commands;Drowsy [facility] Work Phone: 02-11-2025 Cognitive function Awake;Alert;Appropriat e [facility] Work Phone: 01-31-2025 Cognitive function Cooperative;A nxious;Talk ative [facility] Work Phone: 01-30-2025 Cognitive function Voice/Name [facility] Work Phone: 01-28-2025 Cognitive function Awake;Alert;A ppropriate; Follows Commands [facility] Work Phone: 01-21-2025 Cognitive function Voice/Name [facility] Work Phone: 01-05-2025 Cognitive function Voice/Name [facility] Work Phone: 01-02-2025 Cognitive function Awake;Alert;Appropriat e [facility] Work Phone: 12-30-2024 Cognitive function Awake;Alert;A ppropriate; Follows [facility] Work Phone: 12-02-2024 Cognitive function Voice/Name [facility] Work Phone: 11-25-2024 Cognitive function Voice/Name [facility] Work Phone: 11-18-2024 Because of a physica l, mental, or emotional condition, do you have serious difficulty concentrating, remembering, or making decisions Yes 11/18/2024 10:13 AM EDT Anika Carolina RN Yes [facility] 11-10-2024 Cognitive function Voice/Name [facility] Work Phone: 09-29-2024 Cognitive function Awake;Alert;A ppropriate; Follows [facility] Work Phone: 09-14-2024 Cognitive function Appropriate;Cooperativ e [facility] Work Phone: 09-14-2024 Cognitive function Voice/Name [facility] Work Phone: 09-02-2024 Cognitive function Voice/Name [facility] Work Phone: Clinical Notes 08-30-2024 to 02-16-2025 Note Date & Type Note Facility 02-16-2025 Discharge summary Note Date/Time February 16, 2025 6:39pm [facility] Medical Records Department [address] [place] [address] Emergency Department Summary 02/16/25 MR#: [id number] Acct: [id number] Name: FRANKLIN WIGGINS Rep #:[id number] : [...] Prior similar symptoms: Yes Recent Illness/Hospitalization: No [facility] Medical History VRE (vancomycin resistant enterococcus) culture positive Spinal stenosis, lumbar region with neurogenic claudication Hepatic encephalopathy Umbilical hernia Chronic hyponatremia Weakness Diarrhea Sepsis Acidosis, lactic Acute hypotension Acute UTI Chronic hypotension Obesity (BMI 30-39.9) Chronic back pain ISABEL (acute kidney injury) Hypotension Hyperbilirubinemia Liver cirrhosis secondary to BYOER (nonalcoholic steatohepatitis) HLD (hyperlipidemia) HTN (hypertension) Thrombocytopenia [...] liver enzymes. Patient will be admitted to [facility]. History & Record Review Discussion w/independent historian: [...] diabetes mellitus Disposition Disposition: Acute Care Hospital [facility] What to do if you have Problems For any increased pain, shortness of breath, bleeding, nausea or vomiting, chestpain, or any unexpected problems, contact your Primary Care Provider. Call [facility] ([phone]) or report to the closest Emergency Room. Call 911 if necessary. 02/16/251838 <Electronically signed by Alber Dunn MD> Cosigner Signature (if applicable): CC: Dr. Jerald Sherwood MD ~ Signed [facility] Work Phone: 1(905) 197-530507-13-2025 Radiology Diagnostic study [facility]07-08-2025 Radiology Diagnostic study [facility]06-30-2025 Discharge summary Author Yaritza Leo [facility] Note Date/Time January 31, 2025 2:41 pm [facility] Medical Records Department [address] [place] [address] Discharge Summary 01/31/25 1217 MR#: [id number] Acct: [id number] Name: FRANKLIN WIGGINS Rep #:[id number] : 1965 59 From: Yaritza Leo DO PCP: Dr. Jerald Sherwood MD Status:ADM I N [facility] Providers Date of Admission: 01/28/25 [...] a 59-year-old male who presented from local detention facility to which she was discharged on [...] Final Vancomycin Resist. E. faecalis 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 01/28/25 06:15 Blood Culture (Wb) - Anticubital [...] Visit: Altered mental status Attending Provider: Yaritza eLo Primary Care Provider: Jerald Sherwood Consulting Providers: [...] Self Care Charges/Coding Visit Charges Inpatient E&M: 42020 Disch Hosp >30min 01/31/25 1441 <Electronically signed by Yaritza Leo DO> Cosigner Signature (if applicable): CC: Dr. Yaritza Leo DO; Dr. Jerald Sherwood MD~ Signed [facility] Work Phone: 1(624) 605-580306-30-2025 [facility]06-30-2025 Hospital Discharge instructionsAdditional Instructions 1. Goal bowel movements with lactulose is 2-3 bowel movements daily. If you are having more than 3 bowel movements daily please decrease your lactulose from 3 times daily to 2 times daily 2. It is very important that you are compliant with your medications and utilize them as directed Date of Discharge: 01/31/25[facility] Work Phone: 1(294) 262-617306-29-2025 Progress note Author Yaritza Leo [facility] Note Date/Time January 30, 2025 1:37 pm [facility] Medical Records Department [address] [facility] [place] [address] Progress Note - Hospitalist 01/30/2528 MR#: [id number] Acct: [id number] Name: FRANKLNI WIGGINS Rep #:[id number] : 1965 59 From: Yaritza Leo DO PCP: Dr. Jerald Sherwood MD Status:ADM I N Location: [place] [address] Reason for Visit Reason for Visit: Fever [...] Neut % (Auto) 53.2, Lymph % (Auto) 20.0,Harford % (Auto) 18.5 H, Eos % (Auto) [...] Preliminary GPC Poss Enterococcus sp 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 01/28/25 03:10 Mucosa - Nose SARS-CoV-2, Influenza [...] Full code Charges/Coding Visit Charges Inpatient E&M: 09028 Subs Hosp L2 01/30/25 1336 <Electronically signed by Yaritza Leo DO> Cosigner Signature (if applicable): CC: ~ Signed [facility] Work Phone: 1(254) 556-932506-28-2025 Progress note Author Yaritza Leo [facility] Note Date/Time January 29, 2025 5:59 pm [facility] Medical Records Department [address] [place] [address] Progress Note - Hospitalist 01/29/25 0754 MR#: [id number] Acct: [id number] Name: FRANKLIN WIGGINS Rep #:[id number] : 1965 59 From: Yaritza Leo DO PCP: Dr. Jerald Sherwood MD Status:ADM I N Location: [place] [address] Reason for Visit Reason for Visit: Fever [...] (Auto) 60.8, Lymph % (Auto) 17.1 L, Harford % (Auto) 15.2 H, Eos % (Auto) [...] Full code Charges/Coding Visit Charges Inpatient E&M: 21760 Subs Hosp L2 01/29/252 <Electronically signed by Yaritza Leo DO> Cosigner Signature (if applicable): CC: ~ Signed [facility] Work Phone: 1(457) 397-424506-27-2025 History and physical note Author Boone Izquierdo [facility] Note Date/Time January 28, 2025 7:26 am [facility] Medical Records Department [address] [place] [address] H&P Exam - Hospitalist 01/28/25 0710 MR#: [id number] Acct: [id number] Name: GEREMIASFRANKLINKarma CASEY Rep #:[id number] : 1965 59 From: Boone Izquierdo DO PCP: Dr. Jerald Sherwood MD Status:REG E R Location: ED HPI - General General Date of Service: 01/28/25 Chief Complaint: Fever. HPI Narrative FRANKLIN WIGGINS, is a 59 M who presents with fever from the fdc. This ashely 59-year-old male with cirrhosis presents with fever and confusion from the fdc. In emergency room, he was afebrile but [...] stable in the emergencyroom without fluid resuscitation. [facility] Medical History (Updated 01/28/25 @ 07:16 by [...] (Auto) 57.8, Lymph % (Auto) 18.8 L, Harford % (Auto) 16.7 H, Eos % (Auto) [...] Clarity Cloudy, Urine pH 8.0, Ur Specific [place] 1.015, Urine Protein 100 H, Urine Glucose [...] bilateral basilar atelectatic pulmonary changes. Reading Location: [facility] Abdomen/Pelvis CT 01/28/25 05:12 IMPRESSION: Cirrhosis, collateral [...] correlate for possible hepatic colopathy. [facility] Assessment & Plan Assessment/Plan (1) Hepatic encephalopathy: [...] be continued. Charges/Coding Visit Charges Inpatient E&M: 66117 Init Hosp L3 01/28/25 0726 <Electronically signed by Boone Izquierdo DO> Cosigner Signature (if applicable): CC: Dr. Boone Izquierdo DO; Dr. Jerald Sherwood MD~ Signed [facility] Work Phone: 1(806) 435-678806-27-2025 History and physical note Author [facility]one [facility] Note Date/Time January 28, 2025 7:26 am [facility] Medical Records Department [address] [place] [address] H&P Exam - Hospitalist 01/28/25 0710 MR#: [id number] Acct: [id number] Name: FRANKLIN WIGGINS Rep #:[id number] : 1965 59 From: Boone Izquierdo DO PCP: Dr. Jerald Sherwood MD Status:REG E R Location: ED HPI - General General Date of Service: 01/28/25 Chief Complaint: Fever. HPI Narrative FRANKLIN WIGGINS, is a 59 M who presents with fever from the fdc. This ashely 59-year-old male with cirrhosis presents with fever and confusion from the fdc. In emergency room, he was afebrile but [...] stable in the emergencyroom without fluid resuscitation. [facility] Medical History (Updated 01/28/25 @ 07:16 by [...] (Auto) 57.8, Lymph % (Auto) 18.8 L, Harford % (Auto) 16.7 H, Eos % (Auto) [...] Clarity Cloudy, Urine pH 8.0, Ur Specific [place] 1.015, Urine Protein 100 H, Urine Glucose [...] correlate for possible hepatic colopathy. Reading Location: [place] [address] Assessment & Plan Assessment/Plan (1) Hepatic encephalopathy: [...] be continued. Charges/Coding Visit Charges Inpatient E&M: 60264 Init Hosp L3 01/28/25 0726 <Electronically signed by Boone Izquierdo DO> Cosigner Signature (if applicable): CC: Dr. Boone Izquierdo DO; Dr. Jerald Sherwood MD~ Signed [facility] Work Phone: 1(444) 933-545206-27-2025 Discharge summary Author Danny Hutton [facility] Note Date/Time January 28, 2025 6:59 am [facility] Medical Records Department [address] [place] [address] Emergency Department Summary 01/28/25 MR#: [id number] Acct: [id number] Name: FRANKLIN WIGGINS Rep #:[id number] : 1965 59 From: Danny christy DO PCP: Dr. Jerald Sherwood MD Status:REG E R Location: ED HPI History of Present Illness Chief Complaint: Confusion Narrative Narrative: Chief complaint and HPI: Fever and confusion. 59-year-old male with past medical history DM2, ABBY, HTN, HLD, liver 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 presents from [facility] for fever and confusion. History taken by [...] diarrhea, constipation, dysuria. I personally spoke with [facility] staff. 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 Patient is a poor historian therefore history taken by EMS as well as [facility] nurse. Reported patient developed a fever of 101 ?F this evening prior to arrival. No meds were given. Nurse as well as myself does not know the patient's baseline mental status although nursing staff here that note is the patient states that wax and wanes. Nurse there states that multiple techs felt that the patient wasconfused at [facility] and that he was asking about people [...] (Auto) 57.8 Lymph % (Auto) 18.8 L Harford % (Auto) 16.7 H Eos % (Auto) [...] Color Urine Clarity Urine pH Ur Specific Ardmore Urine Protein Urine Glucose (UA) Urine Ketones Urine Occult Blood Urine Nitrite Urine Bilirubin Urine Urobilinogen Ur Leukocyte Esterase Urine RBC Urine WBC Ur Squamous Epith Cells Urine Bacteria Urine Mucus 01/28/25 01/28/25 04:33 04:58 WBC RBC Hgb Hct MCV MCH MCHC RDW Std Deviation RDW Coeff of Francis Plt Count MPV Immature Gran % (Auto) Neut % (Auto) Lymph % (Auto) Harford % (Auto) Eos % (Auto) Baso % [...] Clarity Cloudy Urine pH 8.0 Ur Specific Ardmore 1.015 Urine Protein 100 H Urine Glucose [...] correlate for possible hepatic colopathy. Reading [facility] Discharge Plan Triage Chief Complaint: Confusion ED [...] MD [Primary Care Provider] - Print Language: Finnish What to do if you have Problems For any increased pain, shortness of breath, bleeding, nausea or vomiting, chestpain, or any unexpected problems, contact your Primary Care Provider. Call [facility] ([phone]) or report to the closest Emergency Room. Call 911 if necessary. 01/28/25 0659 <Electronically signed by Danny Hutton DO> Cosigner Signature (if applicable): CC: Dr. Jerald Sherwood MD ~ Signed [facility] Work Phone: 1([phone]) 152-893706-27-2025 Radiology Diagnostic study [facility]06-27-2025 Radiology Diagnostic study [facility]06-20-2025 Discharge summary Author Anurag Irene [facility] Note Date/Time January 21, 2025 11:1 2am [facility] Medical Records Department [address] [place] [address] Transfer to [facility] MR#: [id number] Acct: [id number] Name: FRANKLIN WIGGINS Rep #:[id number] : 1965 59 From: Anurag Lucero PCP: YG Pena Status:ADM I N Certification of patient admission REQUIRED AT TIME OF ADMISSION. I CERTIFY THAT POST-HOSPITAL ECF SERVICES ARE REQUIRED TO BE GIVEN ON AN IN-PATIENT BASIS BECAUSE OF THE ABOVE NAMED PATIENT'S NEED FOR CUSTODIAL CARE ON A CONTINUING BASIS FOR THE [...] (Auto) 63.5, Lymph % (Auto) 16.3 L, Harford % (Auto) 11.9 H, Eos % (Auto) [...] Instructions Additional Instructions / Restrictions: Follow-up in [facility] hepatology/GI. Discharge Orders/Prescriptions Prescriptions: New spironolactone [...] 0RF Referrals / Follow Up: Josy Elias, CHORE TENDER-C [Primary Care Provider] - Within 2 Weeks Disposition Disposition (needs filled in before D/C Order can be placed): Care Home Facility 01/21/25 1112 <Electronically signed by Anurag Irene MD> Cosigner Signature (if applicable): CC: CHORE TENDER-C Josy Elias; Dr. Aleyda Bautista MD; Dr. Yaritza Leo DO; Dr. Cielo Tovar MD; Dr. Jefferson Malave MD ~ [facility] Work Phone: 1(305) 385-392106-20-2025 Discharge summary Author Anurag Irene [facility] Note Date/Time January 21, 2025 1:29 pm [facility] Medical Records Department [address] [place] [address] [place] [address] Discharge Summary 01/21/25 1112 MR#: [id number] Acct: [id number] Name: FRANKLIN WIGGINS Rep #:[id number] : 1965 59 From: Anurag Lucero PCP: YG Pena Status:ADM I N Location: [place] [address] Providers Date of Admission: 01/09/25 Date of Discharge: 01/21/25 Primary Care Physician: YG Pena Consultations 01/09/25 15:46 Consult: Chucking And Boring Machine Operator / Pulmonary Medicine Routine Consulting Provider: Intensivists/Pulmonary [...] (Auto) 63.5, Lymph % (Auto) 16.3 L, Harford % (Auto) 11.9 H, Eos % (Auto) [...] solution (Constulose) 15 ml PO TID PRN brmsxyubmlyi15/27/25 L.acidophil,salivari-Bifido bifidum-Strep thermoph 175 mg capsule 1 [...] Instructions Additional Instructions / Restrictions: Follow-up in [facility] hepatology/GI. Discharge Orders/Prescriptions Prescriptions: New spironolactone [...] in before D/C Order can be placed): Care Home Facility Charges/Coding Visit Charges Inpatient E&M: 18618 Disch Hosp >30min 01/21/25 1117 <Electronically signed by Anurag Irene MD> Cosigner Signature (if applicable): CC: YG Elias; Dr. Anurag Irene MD~ Signed ADDENDUM by Dr. Anurag Ireen MD on 01/21/25 at 1329 Addendum Prescription for oxycodone total 7 tablets ordered. OARSS reviewed. No unintentional overdose risk score, 0. Norc score 0 point 01/21/25 1329<Electronically signed by Anurag Irene MD> Cosigner Signature (if applicable): cc: YG Elias; Dr. Anurag Irene MD ~* Signed [facility] Work Phone: 1(686) 485-138506-20-2025 [facility]06-19-2025 Progress note Author Anurag Irene [facility] Note Date/Time January 20, 2025 2:40 pm [facility] Medical Records Department [facility] [place] [place] [address] Progress Note - Hospitalist 01/20/25 1436 MR#: [id number] Acct: [id number] Name: FRANKLIN WIGGINS Rep #:[id number] : 1965 59 From: Anurag Lucero PCP: YG Pena Status:ADM I N Location: [place] [address] Reason for Visit Reason for Visit: Diagnoses [...] (Auto) 63.5, Lymph % (Auto) 16.3 L, Harford % (Auto) 11.9 H, Eos % (Auto) [...] (Auto) 63.5, Lymph % (Auto) 16.3 L, Harford % (Auto) 11.9 H, Eos % (Auto) [...] 167 H Charges/Coding Visit Charges Inpatient E&M: 45709 Subs Hosp L2 01/20/25 1440 <Electronically signed by Anurag Irene MD> Cosigner Signature (if applicable): CC: ~ Signed [facility] Work Phone: 1([phone]) 487-764406-18-2025 Progress note Author Anurag Irene [facility] Note Date/Time January 19, 2025 4:46 pm [facility] Medical Records Department [address] [place] [address] Progress Note - Hospitalist 01/19/25918 MR#: [id number] Acct: [id number] Name: FRANKLIN WIGGINS Rep #:[id number] : 1965 59 From: Anurag Lucero PCP: YG Pena Status:ADM I N Location: [place] [address] Reason for Visit Reason for Visit: Diagnoses [...] WBCs % 75.6, Fluid Neutrophils 20, Fluid Rssjsfblfgk53, Fluid Monocytes 3, Fluid Macrophages 46, Fluid [...] (Auto) 67.7, Lymph % (Auto) 13.6 L, Harford % (Auto) 11.0 H, Eos % (Auto) [...] gas. Correlate with surgical history. Reading Location: [id number] Paracentesis Ultrasound 01/18/25 13:08 IMPRESSION: Right lower quadrant marker was applied for paracentesis with drain the fluid volume of 2650 cc. Reading [facility] Physical Exam Narrative Seen and examined Discussed [...] WBCs % 75.6, Fluid Neutrophils 20, Fluid Ebppvqchpfr35, Fluid Monocytes 3, Fluid Macrophages 46, Fluid [...] (Auto) 67.7, Lymph % (Auto) 13.6 L, Harford % (Auto) 11.0 H, Eos % (Auto) [...] 198 H Charges/Coding Visit Charges Inpatient E&M: 79369 Subs Hosp L2 01/19/25 1646 <Electronically signed by Anurag Irene MD> Cosigner Signature (if applicable): CC: ~ Signed [facility] Work Phone: 1(220) 218-344306-18-2025 Radiology Diagnostic study [facility]06-17-2025 Radiology Diagnostic study [facility]06-17-2025 Progress note Author Anurag Irene [facility] Note Date/Time January 18, 2025 1:14 pm [facility] Medical Records Department [address] [place] [address] Progress Note - Hospitalist 01/18/25 1302 MR#: [id number] Acct: [id number] Name: FRANKLIN WIGGINS Rep #:[id number] : 1965 59 From: Anurag Lucero PCP: YG Pena Status:ADM I N Location: [place] [address] Reason for Visit Reason for Visit: Diagnoses [...] (Auto) 68.1, Lymph % (Auto) 14.0 L, Harford % (Auto) 10.0, Eos % (Auto) 6.1 [...] prophylaxis: SCDs Charges/Coding Visit Charges Inpatient E&M: 52654 Subs Hosp L2 01/18/25 1314 <Electronically signed by Anurag Irene MD> Cosigner Signature (if applicable): CC: ~ Signed [facility] Work Phone: 1(378) 137-787406-17-2025 Consult note Author Mohit Santos [facility] Note Date/Time January 18, 2025 12:4 9pm [facility] Medical Records Department [address] [place] [address] Pre-Anesthesia Evaluation 01/18/25 1246 MR#: [id number] Acct: [id number] Name: FRANKLIN WIGGINS Rep #:[id number] : 1965 59 From: Mohit Santos MD PCP: YG Pena Status:ADM I N Y Race: C Location: [place] [address] 2-1 ASA Classification* ASA Classification ASA Classification: [...] injection L1/L2 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: 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 Hx Hospitalization Any Problems With Anesthesia No [...] am of surgery tylenol PONV PONV - linux systems analyst: PONV - linux systems analyst Female HX of Motion Sickness HX of N/V After Surgery Non-Smoker Duration of Surgery greater than 60 minutes Number of Risk Factors PONV Score Height & Weight Height & Weight: Anesthesia: Height & Weight Height 5 ft 9 in 01/17/25 14:51 Weight: 111.3 kg 01/18/25 08:57 Body Mass Index (BMI) 36.2 01/18/25 03:51 Respiratory Assessment Respiratory Assessment - linux systems analyst: Respiratory Tract Infection Hx - linux systems analyst Hx Respiratory Tract Infection No 01/18/25 09:01 STOP Sleep Apnea STOP Sleep Apnea - linux systems analyst: STOP Sleep Apnea - linux systems analyst Hx Hypertension No 01/10/25 10:46 Hx Sleep [...] Tobacco Use History Tobacco Use History - linux systems analyst: Tobacco Use History - linux systems analyst Tobacco Use Smoking Status Former smoker 01/10/25 09:20 Hx Tobacco Use Yes 01/09/25 15:31 Years Smoking Packs Smoked per Day Smoking Cessation Date was Yes - quit smoking within 15 01/09/25 15:31 within the last 15 years years Hx Smoking Cessation Date 05/04/24 01/09/25 15:31 Hx Smoking Cessation Counseling Hematologic Medial History Hematologic Hx - linux systems analyst: 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 Hx of Blood Transfusion No 01/09/25 15:31 [...] confused, unrespo /Reproduction History /Reproductive History - linux systems analyst: /Reproductive Hx- linux systems analyst Hx Now No 01/18/25 09:01 Gestational Age [...] 500 Mg Tablet PO Not Given BID [facility] Atorvastatin Calcium 40 mg 01/10/25 10:00 01/17/25 09:19 Atorvastatin Calcium 40 Mg Tablet PO 40 mg DAILY KRYSTIN Administration Calcium/Vitamin D 1 tablet 01/10/25 10:00 01/18/25 11:32 Calcium Carb/Vitamin D 1 Tablet Tablet PO Not Given DAILY KRYSTIN Cyclobenzaprine HCl 10 mg 01/09/25 22:00 01/17/25 21:05 Cyclobenzaprine Hcl 10 Mg Tablet PO 10 mg QHS [facility] Administration Ferrous Sulfate 325 mg 01/10/25 12:00 01/18/25 11:33 Ferrous Sulfate 325 Mg Tablet PO Not Given Q48@1200 KRYSTIN Folic Acid 1 mg 01/10/25 08:00 01/18/25 11:31 Folic Acid 1 Mg Tablet PO Not Given BREAKFAST KRYSTIN Sodium Chloride 250 mls @ 15 mls/hr 01/09/25 15:34 IV .[id number] PRN Saline Flush Sodium Chloride 250 mls @ 15 mls/hr 01/09/25 15:34 IV .[id number] PRN Additional IVPB Infusion Sodium Chloride 1,000 mls @ 15 mls/hr 01/18/25 12:45 IV .Q48H [facility] Insulin Glargine 20 unit 01/09/25 22:00 01/17/25 21:05 Insulin Glargine-Yfgn 100 Unit/Ml Pen SC 20 unit QHS [facility] Administration Insulin Glargine 20 unit 01/10/25 10:00 01/18/25 11:31 Insulin Glargine-Yfgn 100 Unit/Ml Pen SC Not Given DAILY [facility] Insulin Human Lispro 0 unit 01/09/25 16:00 01/18/25 11:33 Insulin Lispro 100 Unit/Ml Insuln.Pen SC [facility] Protocol Lactulose 10 gm 01/09/25 15:46 01/12/25 14:34 Lactulose 20 Gm/30 Ml Udc PO 10 gm TID PRN Administration constipation Magnesium Chloride 128 mg 01/10/25 10:00 01/18/25 11:31 Magnesium Chloride 64 Mg Delay Rel.Tablet PO Not Given DAILY [facility] Midodrine 10 mg 01/09/25 17:00 01/18/25 [...] 20 Mg Tablet PO Not Given DAILY [facility] Potassium Phos/Sodium Phos 1 packet 01/09/25 22:00 01/18/25 11:32 Na Biphos/Potassium Phosphate Packet PO Not Given BID KRYSTIN Rifaximin 550 mg 01/09/25 22:00 01/17/25 21:06 Rifaximin 550 Mg Tablet PO 550 mg BID KRYSTIN Administration Sodium Bicarbonate 650 mg 01/09/25 22:00 01/18/25 11:32 Sodium Bicarbonate 650 Mg Tablet PO Not Given BID [facility] Sodium Chloride 10 - 40 ml 01/09/25 15:34 01/18/25 08:33 0.9% Saline Lock 10 Ml Syringe IV 20 ml UD PRN Administration SALINE FLUSH Thiamine HCl 100 mg 01/10/25 10:00 01/18/25 11:32 Thiamine Hydrochloride 100 Mg Tablet PO Not Given DAILY [facility] Medical History (Updated 01/17/25 @ [...] MD Cosigner Signature: Date CC: ~ Signed [facility] Work Phone: 1(291) 727-782806-16-2025 Consult note Author Buster Carmichael [facility] Note Date/Time January 17, 2025 4:57 pm [facility] Medical Records Department [address] [place] [address] Consultation 01/17/25 1522 MR#: [id number] Acct: [id number] Name: FRANKLIN WIGGINS Rep #:[id number] : 1965 59 From: Buster brewster MD PCP: Josy Elias CHORE TENDER-C Status:ADM I N Location: [place] [address] Assessment & Plan Assessment/Plan (1) Spinal stenosis, [...] be 8- 10/10 in severity when moving. [facility] Medical History (Updated 01/17/25 @ 16:52 by [...] (Auto) 67.2, Lymph % (Auto) 12.9 L, [place] % (Auto) 11.5 H, Eos % (Auto) 6.8 H, Baso % (Auto) 0.5, Absolute Neuts (auto) 5.7, Absolute Lymphs (auto) 1.09, Nucleated RBC % 0 01/17/25 06:28: POC Glucose 173 H 01/17/25 11:26: POC Glucose 141 H 01/17/25 1657 <Electronically signed by Buster Carmichael MD> Cosigner Signature (if applicable): CC: YG Elias~ Signed [facility] Work Phone: 1(624) 485-263906-16-2025 Progress note Author Anurag Irene [facility] Note Date/Time January 17, 2025 2:32 pm [facility] Medical Records Department [address] [place] [address] Progress Note - Hospitalist 01/17/25 1420 MR#: [id number] Acct: [id number] Name: FRANKLIN WIGGINS Rep #:[id number] : 1965 59 From: Anurag Lucero PCP: YG Pena Status:ADM I N Location: [place] [address] Reason for Visit Reason for Visit: Diagnoses [...] (Auto) 67.2, Lymph % (Auto) 12.9 L, [place] % (Auto) 11.5 H, Eos % (Auto) [...] prophylaxis: SCDs Charges/Coding Visit Charges Inpatient E&M: 63650 Subs Hosp L2 01/17/25 1432 <Electronically signed by Anurag Irene MD> Cosigner Signature (if applicable): CC: ~ Signed [facility] Work Phone: 1(114) 812-682206-16-2025 [facility]06-15-2025 Progress note Author Cielo Tovar [facility] Note Date/Time January 16, 2025 3:37 pm [facility] Medical Records Department [address] [facility] [place] [address] Progress Note 01/16/25 1236 MR#: [id number] Acct: [id number] Name: FRANKLIN WIGGINS Rep #:[id number] : 1965 59 From: Cielo Tovar MD PCP: YG Pena Status:ADM I N Location: [place] [address] Subjective Subjective Patient seen and examined. He [...] (Auto) 64.9, Lymph % (Auto) 14.6 L, [place] % (Auto) 12.7 H, Eos % (Auto) [...] at home. Charges/Coding Visit Charges Inpatient E&M: 93953 Subs Hosp L2 01/16/25 0748 <Electronically signed by Cielo Tovar MD> Cielo Tovar MD Cosigner Signature (if applicable): CC: ~ Signed [facility] Work Phone: 1(230) 278-592506-14-2025 Consult note Author Buster Hahn [facility] Note Date/Time January 15, 2025 6:46 pm [facility] Medical Records Department [address] [place] [address] Pharmacokinetic/Renal -Consult 01/15/25 1846 MR#: [id number] Acct: [id number] Name: FRANKLIN WIGGINS Rep #:[id number] : 1965 59 From: Buster Lopes ing [facility] PCP: Josy Elias NP-C Status:ADM I N Y Location: [place] [address] Consult Antibiotic Management Pharmacy has been consulted [...] 01/15/25 1846 <Electronically signed by Buster Nieves [facility]> Date _ Buster Hahn [facility] Cosigner Signature (if applicable): Date CC: ~ Signed [facility] Work Phone: 1(113) 285-609706-14-2025 Progress note Author [facility] Note Date/Time January 15, 2025 6:29 pm [facility] Medical Records Department [address] [place] [address] Progress Note 01/15/25 1321 MR#: [id number] Acct: [id number] Name: FRANKLIN WIGGINS Rep #:[id number] : 1965 59 From: Cielo Tovar MD PCP: YG Pena Status:ADM I N Location: [place] [address] Subjective Subjective Patient seen and examined. He [...] (Auto) 65.6, Lymph % (Auto) 13.2 L, [place] % (Auto) 13.6 H, Eos % (Auto) [...] at multiple levels, as described. Reading Location: [place] [address] Physical Exam Const alert, oriented x3 and [...] at home. Charges/Coding Visit Charges Inpatient E&M: 67671 Subs Hosp L2 01/15/259 <Electronically signed by Cielo Tovar MD> Cielo Tovar MD Cosigner Signature (if applicable): CC: ~ Signed [facility] Work Phone: 1(717) 314-556306-13-2025 Consult note Author Andreia Carvalho [facility] Note Date/Time January 14, 2025 8:04 pm [facility] Medical Records Department [address] [place] [address] Pharmacokinetic/Renal -Consult 01/14/252002 MR#: [id number] Acct: [id number] Name: FRANKLIN WIGGINS Rep #:[id number] : 1965 59 From: Andreia Carvalho PCP: YG Pena Status:ADM I N Y Location: [place] [address] Consult Antibiotic Management Pharmacy has been consulted [...] Signature (if applicable): Date CC: ~ Signed [facility] Work Phone: [phone]) 765-672606-13-2025 Progress [facility] Note Date/Time January 14, 2025 5:19 pm [facility] Medical Records Department [address] [place] [address] Progress Note 01/14/251705 MR#: [id number] Acct: [id number] Name: FRANKLIN WIGGINS Rep #:[id number] : 1965 59 From: Cielo Tovar MD PCP: YG Pena Status:ADM I N Location: [place] [address] Subjective Subjective Patient seen and examined. He [...] (Auto) 65.3, Lymph % (Auto) 13.5 L, [place] % (Auto) 14.3 H, Eos % (Auto) [...] at multiple levels, as described. Reading Location: [place] [address] Thoracic Spine MRI 01/13/25 10:30 IMPRESSION: Abnormal marrow signal at T12 and L1. No acute compression deformity identified. Can not exclude metastatic involvement of these 2 vertebral bodies. Degenerative changes in the remainder of the lumbar spine. There is mild spinal stenosis at the level of T10-T11 and T11-T12. The patient could not tolerate postcontrast imaging. There is no cord compression Reading Location: [facility] Chest CT 01/14/25 08:06 IMPRESSION: 1. Partially visualized severe degenerative changes of T11-T12 with areas of erosive changes and lytic lesions. Metastasis can not be excluded. 2. Cirrhosis and ascites. 3. Mild lung emphysema. No suspicious nodules or focal consolidation. Reading Location: [facility] Physical Exam Const alert, oriented x3 [...] medically stable. Charges/Coding Visit Charges Inpatient E&M: 58162 Subs Hosp L2 01/14/25 6658 <Electronically signed by Cielo Tovar MD> Cielo Tovar MD Cosigner Signature (if applicable): CC: ~ Signed [facility] Work Phone: [phone] 433-352406-13-2025 Radiology Diagnostic study [facility]06-12-2025 Progress note Author [facility]o [facility] Note Date/Time January 13, 2025 6:28 pm [facility] Medical Records Department [address] [place] [address] Progress Note 01/13/25 1837 MR#: [id number] Acct: [id number] Name: FRANKLIN WIGGINS Rep #:[id number] : 1965 59 From: Cielo Tovar MD PCP: Josy Elias CHORE TENDER-C Status:ADM I N Location: [place] [address] Subjective Subjective Patient seen and examined. He [...] (Auto) 65.6, Lymph % (Auto) 14.4 L, [place] % (Auto) 13.7 H, Eos % (Auto) [...] medically stable. Charges/Coding Visit Charges Inpatient E&M: 47980 Subs Hosp L2 01/13/25 8127 <Electronically signed by Cielo Tovar MD> Cielo Tovar MD Cosigner Signature (if applicable): CC: ~ Signed [facility] Work Phone: 1(247) 412-443106-12-2025 Consult note Author Francheska Montoya [facility] Note Date/Time January 13, 2025 9:36 am [facility] Medical Records Department [address] [place] [address] Pharmacokinetic/Renal -Consult 01/13/25 0934 MR#: [id number] Acct: [id number] Name: FRANKLIN WIGGINS Rep #:[id number] : 1965 59 From: Francheska Mcfarlane PCP: Josy Elias NP-C Status:ADM I N Y Location: [place] [address] Consult Antibiotic Management Pharmacy has been consulted [...] Signature (if applicable): Date CC: ~ Signed [facility] Work Phone: [phone] Progress note Author [facility] Note Date/Time January 12, 2025 4:51 pm [facility] Medical Records Department [address] [place] [address] Progress Note 01/12/25 1646 MR#: [id number] Acct: [id number] Name: FRANKLIN WIGGINS Rep #:[id number] : 1965 59 From: Cielo Tovar MD PCP: YG Pena Status:ADM I N Location: [place] [address] Subjective Subjective Patient seen and examined. He [...] (Auto) 68.2, Lymph % (Auto) 11.6 L, [place] % (Auto) 12.1 H, Eos % (Auto) [...] his facility. Charges/Coding Visit Charges Inpatient E&M: 73706 Subs Hosp L2 01/12/25 1651 <Electronically signed by Cielo Tovar MD> Cielo Tovar MD Cosigner Signature (if applicable): CC: ~ Signed [facility] Work Phone: [phone] 306-214906-11-2025 Consult note Author Dilcia Vanessa [facility] Note Date/Time January 11, 2025 10:4 8pm [facility] Medical Records Department [address] [place] [address] Pharmacokinetic/Renal -Consult 01/11/251942 MR#: [id number] Acct: [id number] Name: FRANKLIN WIGGINS Rep #:[id number] : 1965 59 From: Dilcia Vanessa PCP: YG Pena Status:ADM I N Y Location: [place] [address] Consult Antibiotic Management Pharmacy has been consulted [...] Date Yaritza Leo DO CC: ~ Signed [facility] Work Phone: [phone] Progress note Author [facility] Note Date/Time January 11, 2025 5:51 pm [facility] Medical Records Department [address] [place] [address] Progress Note 01/11/25 1510 MR#: [id number] Acct: [id number] Name: FRANKLIN WIGGINS Rep #:[id number] : 1965 59 From: Cielo Tovar MD PCP: YG Pena Status:ADM I N Location: [place] [address] Subjective Subjective Patient seen and examined. He [...] % (Auto) Cancelled, Lymph % (Auto) Cancelled, [place] % (Auto) Cancelled, Eos % (Auto) Cancelled, [...] Drop Cells Cancelled, Ovalocytes Cancelled, Stomatocytes Cancelled, Castell[place]-Ruth Bodies Cancelled, [place] Cells Cancelled, Bite Cells Cancelled, Crenated Cell [...] (Auto) 69.6, Lymph % (Auto) 12.6 L, [place] % (Auto) 11.8 H, Eos % (Auto) [...] of anemia Charges/Coding Visit Charges Inpatient E&M: 98939 Subs Hosp L2 01/11/25 1751 <Electronically signed by Cielo Tovar MD> Cielo Tovar MD Cosigner Signature (if applicable): CC: ~ Signed [facility] Work Phone: [phone] Consult note Author Jefferson Malave [facility] Note Date/Time January 11, 2025 4:41 pm [facility] Medical Records Department [address] [place] [address] Consultation - Surgical 01/11/25 1634 MR#: [id number] Acct: [id number] Name: FRANKLIN WIGGINS Rep #:[id number] : 1965 59 From: Jefferson Malave MD PCP: YG Pena Status:ADM I N Location: [place] [address] Assessment & Plan Assessment/Plan (1) Umbilical hernia: [...] findings on CT consistent with portal hypertension. [facility] Medical History (Updated 01/11/25 @ 16:41 by [...] % (Auto) Cancelled, Lymph % (Auto) Cancelled, [place] % (Auto) Cancelled, Eos % (Auto) Cancelled, [...] Drop Cells Cancelled, Ovalocytes Cancelled, Stomatocytes Cancelled, [place]-Ruth Bodies Cancelled, [place] Cells Cancelled, Bite Cells Cancelled, Crenated Cell [...] (Auto) 69.6, Lymph % (Auto) 12.6 L, [place] % (Auto) 11.8 H, Eos % (Auto) [...] 48 hours. Charges/Coding Visit Charges Inpatient E&M: 33395 Init Hosp L3 01/11/25 1641 <Electronically signed by Jefferson Malave MD> Cosigner Signature (if applicable): CC: YG Elias~ Signed [facility] Work Phone: [phone] Progress note Author Bola Meraz [facility] Note Date/Time January 11, 2025 9:07 am [facility] Medical Records Department [address] [place] [address] Progress Note - Chucking And Boring Machine Operator 01/11/25 0722 MR#: [id number] Acct: [id number] Name: FRANKLIN WIGGINS Rep #:[id number] : [...] scheduled midodrine. This note was generated with [employer] dictation software. It may contain incorrectwords, spelling, [...] % (Auto) Cancelled, Lymph % (Auto) Cancelled, [place] % (Auto) Cancelled, Eos % (Auto) Cancelled, [...] Drop Cells Cancelled, Ovalocytes Cancelled, Stomatocytes Cancelled, [place]-Ruth Bodies Cancelled, [place] Cells Cancelled, Bite Cells Cancelled, Crenated Cell [...] (Auto) 69.6, Lymph % (Auto) 12.6 L, [place] % (Auto) 11.8 H, Eos % (Auto) [...] hypertension. No liver masses identified. Reading Location: [facility] Physical Exam Const alert, oriented x3 and [...] flat affect Charges/Coding Visit Charges Inpatient E&M: 10747 Subs Hosp L2 01/11/25 0907 <Electronically signed by Bola Meraz DO> Cosigner Signature (if applicable): CC: ~ Signed [facility] Work Phone: [phone] 442-706406-10-2025 Consult note Author Boone Garcia [facility] Note Date/Time January 11, 2025 2:14 am [facility] Medical Records Department [address] [place] [address] Pharmacokinetic/Renal -Consult 01/11/25 0211 MR#: [id number] Acct: [id number] Name: FRANKLIN WIGGINS Rep #:[id number] : [...] Signature (if applicable): Date CC: ~ Signed [facility] Work Phone: [phone] 568-872406-09-2025 Progress note Author Cielo Tovar [facility] Note Date/Time January 10, 2025 6:23p [facility] Medical Records Department [address] [place] [address] Progress Note 01/10/25 1816 MR#: [id number] Acct: [id number] Name: FRANKLIN WIGGINS Rep #:[id number] : [...] % (Auto) Cancelled, Lymph % (Auto) Cancelled, [place] % (Auto) Cancelled, Eos % (Auto) Cancelled, [...] Drop Cells Cancelled, Ovalocytes Cancelled, Stomatocytes Cancelled, Castell[place]-Ruth Bodies Cancelled, [place] Cells Cancelled, Bite Cells [...] 76.1 H, Lymph % (Auto) 8.8 L, [place] % (Auto) 8.2, Eos % (Auto) 5.9 [...] prophylaxis: Heparin Charges/Coding Visit Charges Inpatient E&M: 21277 Subs Hosp L3 01/10/25 1823 <Electronically signed by Cielo Tovar MD> Cielo Tovar MD Cosigner Signature (if applicable): CC: ~ Signed [facility] Work Phone: [phone] 561-192806-09-2025 Progress note Author Bola Meraz [facility] Note Date/Time January 10, 2025 8:52a m [facility] Medical Records Department [address] [place] [address] Progress Note - Chucking And Boring Machine Operator 01/10/25 0700 MR#: [id number] Acct: [id number] Name: FRANKLIN WIGGINS Rep #:[id number] : [...] 80.6 H, Lymph % (Auto) 7.2 L, [place] % (Auto) 6.7, Eos % (Auto) 4.2, [...] % (Auto) Cancelled, Lymph % (Auto) Cancelled, [place] % (Auto) Cancelled, Eos % (Auto) Cancelled, [...] Drop Cells Cancelled, Ovalocytes Cancelled, Stomatocytes Cancelled, Castell[place]-Ruth Bodies Cancelled, [place] Cells Cancelled, Bite Cells Cancelled, Crenated Cell [...] 76.1 H, Lymph % (Auto) 8.8 L, [place] % (Auto) 8.2, Eos % (Auto) 5.9 [...] hypertension. No liver masses identified. [facility] Physical Exam Const alert, oriented x3 and [...] flat affect Charges/Coding Visit Charges Inpatient E&M: 68410 Subs Hosp L3 01/10/25 0852 <Electronically signed by Bola Meraz DO> Cosigner Signature (if applicable): CC: ~ Signed [facility] Work Phone: [phone] Consult note Author Lupillo Robbins [facility] Note Date/Time January 09, 2025 8:03p [facility] Medical Records Department [address] [place] [address] Consultation - Chucking And Boring Machine Operator 01/09/25 1836 MR#: [id number] Acct: [id number] Name: FRANKLIN WIGGINS Rep #:[id number] : [...] Ferrous Sulfate 325 Mg Tablet PO Q48@1200 [facility] Folic Acid 1 mg 01/10/25 08:00 Folic Acid 1 Mg Tablet PO BREAKFAST KRYSTIN Guaifenesin 10 ml 01/09/25 15:46 Guaifenesin 10 Ml Udc (200mg/10ml) PO Q4H PRN PRN COUGH Heparin Sodium (Porcine) 5,000 unit 01/09/25 22:00 Heparin Injection (Vial) 5,000 Unit/Ml Vial SC Q8 KRYSTIN Sodium Chloride 250 mls @ 15 mls/hr 01/09/25 15:34 IV .[id number] PRN Saline Flush Sodium Chloride 250 mls @ 15 mls/hr 01/09/25 15:34 IV .[id number] PRN Additional IVPB Infusion Norepinephrine Bitartrate 8 mg 250 mls @ 9.375 mls/hr 01/09/25 15:46 01/09/2515:56 / Sodium Chloride CONT INF Not Given .[id number] [facility] Protocol 5 MCG/MIN Vancomycin IV-PHARMACY TO DOSE 500 mls @ 250 mls/hr 01/09/25 15:46 1 each/ Sodium Chloride IV PRN PRN Rx to Dose Protocol Meropenem 1 gm/ Sodium 120 mls @ 33 mls/hr 01/09/25 22:00 Chloride IV Q12 KRYSTIN Vancomycin HCl 1,000 mg in 200 mls @ 200 mls/hr 01/10/25 02:00 Vancomycin IV Q12H [facility] Insulin Glargine 20 unit 01/09/25 22:00 Insulin Glargine-Yfgn 100 Unit/Ml Pen SC QHS [facility] Insulin Glargine 20 unit 01/10/25 10:00 Insulin Glargine-Yfgn 100 Unit/Ml Pen SC DAILY [facility] Insulin Human Lispro 0 unit 01/09/25 16:00 01/09/25 16:27 Insulin Lispro 100 Unit/Ml Insuln.Pen SC Not Given ACHS [facility] Protocol Lactulose 10 gm 01/09/25 15:46 Lactulose 20 Gm/30 Ml Udc PO TID PRN constipation Magnesium Chloride 128 mg 01/10/25 10:00 Magnesium Chloride 64 Mg Delay Rel.Tablet PO DAILY [facility] Midodrine 10 mg 01/09/25 17:00 01/09/25 17:10 Midodrine Hcl 5 Mg Tablet PO 10 mg TIDCM [facility] Administration Ondansetron HCl 4 mg 01/09/25 15:46 Ondansetron 4 Mg/2 Ml Vial IV Q8H PRN PRN NAUSEA/VOMITING Pantoprazole Sodium 20 mg 01/10/25 10:00 Pantoprazole Sodium 20 Mg Tablet PO DAILY [facility] Potassium Phos/Sodium Phos 1 packet 01/09/25 22:00 Na Biphos/Potassium Phosphate Packet PO BID [facility] Rifaximin 550 mg 01/09/25 22:00 Rifaximin 550 Mg Tablet PO BID [facility] Sodium Bicarbonate 650 mg 01/09/25 22:00 Sodium Bicarbonate 650 Mg Tablet PO BID [facility] Sodium Chloride 10 - 40 ml 01/09/25 15:34 0.9% Saline Lock 10 Ml Syringe IV UD PRN SALINE FLUSH Thiamine HCl 100 mg 01/10/25 10:00 Thiamine Hydrochloride 100 Mg Tablet PO DAILY [facility] Vancomycin Protocol 1 lab 01/11/25 00:30 Vancomycin Trough/Random Due MC 01/11/25 02:30 DAILY [facility] Zinc Sulfate 50 mg 01/10/25 10:00 Zinc Sulfate 50 Mg Zinc (220 Mg) Oral Capsule PO DAILY [facility] Lab / Micro Data 01/09/25 10:40 [...] 80.6 H, Lymph % (Auto) 7.2 L, [place] % (Auto) 6.7, Eos % (Auto) 4.2, [...] hypertension. No liver masses identified. Reading Location: [facility] Assessment and Plan . Assessment and plan: [...] Robbins MD> Cosigner Signature (if applicable): CC: CHORE TENDER-C Josy Elias~ Signed [facility] Work Phone: 1([phone]) 231-330106-08-2025 Consult note Author Peter Carvajal [facility] Note Date/Time January 09, 2025 5:42p m [facility] Medical Records Department [address] [place] [address] Pharmacokinetic/Renal -Consult 01/09/25 1602 MR#: [id number] Acct: [id number] Name: FRANKLIN WIGGINS Rep #:[id number] : [...] Peter gusman> Date _ Peter Carvajal 01/09/25 6287 <Electronically signed by Yaritza Holland> Eduardoigner Signature (if applicable): Date Yaritza Leo DO CC: ~ Signed [facility] Work Phone: 1(683) 170-502106-08-2025 History and physical note Author Yaritza Leo [facility] Note Date/Time January 09, 2025 5:41p m [facility] Medical Records Department [address] [place] [address] H&P Exam - Hospitalist 01/09/25 1408 MR#: [id number] Acct: [id number] Name: FRANKLIN WIGGINS Rep #:[id number] : 1965 59 From: Yaritza Leo DO PCP: YG Pena Status:ADM I N Location: ICU CVICU 08-04 HPI - General General Date of Admission: 01/09/25 Date of Service: 01/09/25 Chief Complaint: Suprapubic abdominal pain HPI Narrative FRANKLIN WIGGINS, is a 59 M who presented to the emergency department [facility] on 01/09/2025 due to back [...] and currently resides at an [facility]. He denies any fever or chills. [...] a repeat of 89/59 and pulse ox tec205% on room air. CBC showed a leukocytosis [...] he was treated with 30 cc/kg bolus. [facility] Medical History (Updated 01/09/25 @ 17:18 by [...] 80.6 H, Lymph % (Auto) 7.2 L, Harford % (Auto) 6.7, Eos % (Auto) 4.2, [...] currently 102/60) Charges/Coding Visit Charges Inpatient E&M: 42767 Init Hosp L3 01/09/25 1741 <Electronically signed by Yaritza Leo DO> Cosigner Signature (if applicable): CC: YG Elias; Dr. Yaritza Leo DO~ Signed [facility] Work Phone: 1(360) 159-615906-08-2025 Discharge summary Author Breann Mendez [facility] Note Date/Time January 09, 2025 4:26p [facility] Medical Records Department [address] [place] [address] Emergency Department Summary 01/09/25 MR#: [id number] Acct: [id number] Name: FRANKLIN WIGGINS Rep #:[id number] : [...] denies urinary symptoms. Patient is from a [facility] and normally ambulates with a walker. Patient has history of cirrhosis and history of diabetes as well as high cholesterol. Patient has had prior paracentesis. Currently rates his pain about a 5 out of 10. He does not want thing for pain currently. [facility] Medical History Weakness Diarrhea Sepsis Acidosis, lactic [...] mg tablet (Xifaxan) 550 mg PO BID [facility] tabs 09/02/24 11/28/24 Rx acetaminophen [...] 80.6 H Lymph % (Auto) 7.2 L Harford % (Auto) 6.7 Eos % (Auto) 4.2 [...] Clarity Turbid Urine pH 6.0 Ur Specific [place] 1.015 Urine Protein 500 H Urine Glucose [...] hypertension. No liver masses identified. Reading [facility] Critical Care Time Critical care time (excluding procedures): 30-74 minutes, Including time spent:,Discussing w/Patient &/or Family/Business Transformation Manager, Discussing w/Consultants, ArrangingAdmission or Transfer, Performing Direct [...] NP-C [Primary Care Provider] - Print Language: Finnish Disposition Disposition: Acute Care Hospital [facility] What to do if you have Problems For any increased pain, shortness of breath, bleeding, nausea or vomiting, chestpain, or any unexpected problems, contact your Primary Care Provider. Call [facility] ([phone]) or report to the closest Emergency Room. Call 911 if necessary. 01/09/25 1626 <Electronically signed by Breann Mendez DO> Cosigner Signature (if applicable): CC: YG Elias ~ Signed [facility] Work Phone: 1(213) 309-658806-08-2025 Radiology Diagnostic study [facility]06-04-2025 Consult note Author Kourtney Reece [facility] Note Date/Time January 05, 2025 5:01p [facility] Medical Records Department [address] [place] [address] Counseling Note - Pharmacy 01/05/25 1447 MR#: [id number] Acct: [id number] Name: FRANKLIN WIGGINS Rep #:[id number] : 1965 59 From: Kourtney Reece PCP: YG Pena Status:ADM I N Y Location: [place] [address] Pharmacy [place] Med Reconciliation Pharmacy Service has performed discharge [...] solution (Constulose) 15 ml PO TID PRN sbwsvcoicwxa93/27/25 L.acidophil,salivari-Bifido bifidum-Strep thermoph 175 mg capsule 1 [...] Signature (if applicable): Date CC: ~ Signed [facility] Work Phone: 1(635) 999-838506-04-2025 Discharge summary Author Hill Acuña [facility] Note Date/Time January 05, 2025 2:[address] [place] [address] System Medical Records Department [address] [place] [address] Discharge Summary 01/05/25 1404 MR#: [id number] Acct: [id number] Name: FRANKLIN WIGGINS Rep #:[id number] : 1965 59 From: Hill Acuña MD PCP: YG Pena Status:ADM I N Location: [place] [address] Providers Date of Admission: 01/02/25 Date of [...] Secondary to multiple medical comorbidities. Transfer to detention facility had been recommended to patient during previous hospitalization he did decline. I had a discussion with patient he is amenable to entertaining the idea of going to detention facility. Subsequently requested for PT OT eval and high school social studies tutor to assist with discharge planning ? 01/03/2025; plan is to discuss with case management regarding disposition ? 01/05/2025; awaiting insurance pre-CERT prior to transfer to detention facility ? Patient was discharged to detention facility once insurance. 2. Severe hypokalemia ? [...] solution (Constulose) 15 ml PO TID PRN nwbjtjutkvam39/27/25 L.acidophil,salivari-Bifido bifidum-Strep thermoph 175 mg capsule 1 [...] (Auto) 69.1, Lymph % (Auto) 13.4 L, Harford % (Auto) 11.6 H, Eos % (Auto) [...] in before D/C Order can be placed): Care Home Facility Charges/Coding Visit Charges Inpatient E&M: 79160 Disch Hosp >30min 01/05/25 1407 <Electronically signed by Hill Acuña MD> Cosigner Signature (if applicable): CC: YG Elias; Dr. Hill Acuña MD~ Signed [facility] Work Phone: 1([phone]) 443-448606-04-2025 Discharge summary Author Hill Acuña [facility] Note Date/Time January 05, 2025 2:04p [facility] Medical Records Department [address] [place] [id number] Transfer to [facility] MR#: [id number] Acct: [id number] Name: FRANKLIN WIGGINS Rep #:[id number] : 1965 59 From: Hill Acuña MD PCP: YG Pena Status:ADM I N Certification of patient admission REQUIRED AT TIME OF ADMISSION. I CERTIFY THAT POST-HOSPITAL ECF SERVICES ARE REQUIRED TO BE GIVEN ON AN IN-PATIENT BASIS BECAUSE OF THE ABOVE NAMED PATIENT'S NEED FOR CUSTODIAL CARE ON A CONTINUING BASIS FOR THE CONDITION(S) FOR WHICH HE/SHE WAS RECEIVING IN-PATIENT HOSPITAL SERVICES PRIOR TO HIS/HER TRANSFER TO THE [facility]. 01/05/25 1404<Electronically signed by Hill Acuña [...] Secondary to multiple medical comorbidities. Transfer to detention facility had been recommended to patient during previous hospitalization he did decline. I had a discussion with patient he is amenable to entertaining the idea of going to detention facility. Subsequently requested for PT OT eval and high school social studies tutor to assist with discharge planning ? 01/03/2025; plan is to discuss with case management regarding disposition ? 01/05/2025; awaiting insurance pre-CERT prior to transfer to detention facility 2. Severe hypokalemia ? Patient potassium [...] in before D/C Order can be placed): Care Home Facility 01/05/25 1404 <Electronically signed by Hill Acuña MD> Cosigner Signature (if applicable): CC: YG Elias; Dr. Buster Fuchs MD ~ [facility] Work Phone: 1(516) 868-833506-04-2025 [facility]06-04-2025 Progress note [facility] Note Date/Time January 05, 2025 11:01 am [facility] Medical Records Department [address] [place] [address] Progress Note - Hospitalist 01/05/25 0737 MR#: [id number] Acct: [id number] Name: FRANKLIN WIGGINS Rep #:[id number] : 1965 59 From: Hill Acuña MD PCP: YG Pena Status:ADM I N Location: [place] [address] Reason for Visit Reason for Visit: Diagnoses Acute kidney failure, unspecified (01/02/25) Unspecified fall, initial encounter (01/02/25) Subjective Subjective Patient seen blood glucose control not optimal further adjustment made to patient insulin regimen. Patient awaiting insurance precertification prior to transfer to detention facility Objective Data Objective Data Vital Signs: [...] (Auto) 69.1, Lymph % (Auto) 13.4 L, Harford % (Auto) 11.6 H, Eos % (Auto) [...] Secondary to multiple medical comorbidities. Transfer to detention facility had been recommended to patient during previous hospitalization he did decline. I had a discussion with patient he is amenable to entertaining the idea of going to detention facility. Subsequently requested for PT OT eval and high school social studies tutor to assist with discharge planning ? 01/03/2025; plan is to discuss with case management regarding disposition ? 01/05/2025; awaiting insurance pre-CERT prior to transfer to detention facility 2. Severe hypokalemia ? Patient potassium [...] SCDs for Charges/Coding Visit Charges Inpatient E&M: 31323 Subs Hosp L2 01/05/25 1101 <Electronically signed by Hill Acuña MD> Cosigner Signature (if applicable): CC: ~ Signed [facility] Work Phone: 1(862) 598-635606-03-2025 Progress note Author Hill Acuña [facility] Note Date/Time January 04, 2025 10:18 am [facility] Medical Records Department [address] [place] [address] Progress Note - Hospitalist 01/04/25 1014 MR#: [id number] Acct: [id number] Name: FRANKLIN WIGGINS Rep #:[id number] : 1965 59 From: Hill Acuña MD PCP: YG Pena Status:ADM I N Location: [place] [address] Reason for Visit Reason for Visit: Diagnoses [...] Secondary to multiple medical comorbidities. Transfer to detention facility had been recommended to patient during previous hospitalization he did decline. I had a discussion with patient he is amenable to entertaining the idea of going to detention facility. Subsequently requested for PT OT eval and high school social studies tutor to assist with discharge planning ? 01/03/2025; [...] SCDs for Charges/Coding Visit Charges Inpatient E&M: 39728 Subs Hosp L2 01/04/25 1018 <Electronically signed by Hill Acuña MD> Cosigner Signature (if applicable): CC: ~ Signed [facility] Work Phone: 1(441) 697-534106-02-2025 Progress note Author Hill Acuña [facility] Note Date/Time January 03, 2025 9:52a m [facility] Medical Records Department [address] [place] [address] Progress Note - Hospitalist 01/03/25 0839 MR#: [id number] Acct: [id number] Name: FRANKLIN WIGGINS Rep #:[id number] : 1965 59 From: Hill Acuña MD PCP: YG Pena Status:ADM I N Location: [place] [address] Reason for Visit Reason for Visit: Diagnoses [...] (Auto) 67.5, Lymph % (Auto) 13.9 L, Harford % (Auto) 11.5 H, Eos % (Auto) [...] Secondary to multiple medical comorbidities. Transfer to detention facility had been recommended to patient during previous hospitalization he did decline. I had a discussion with patient he is amenable to entertaining the idea of going to detention facility. Subsequently requested for PT OT eval and high school social studies tutor to assist with discharge planning ? 01/03/2025; [...] SCDs for Charges/Coding Visit Charges Inpatient E&M: 95569 Subs Hosp L2 01/03/25 0952 <Electronically signed by Hill Acuña MD> Cosigner Signature (if applicable): CC: ~ Signed [facility] Work Phone: 1(539) 403-318706-01-2025 Progress note Author Hill Acuña [facility] Note Date/Time January 02, 2025 9:58a m [facility] Medical Records Department [address] [place] [address] Progress Note - Hospitalist 01/02/25 0736 MR#: [id number] Acct: [id number] Name: FRANKLIN WIGGINS Rep #:[id number] : 1965 59 From: Hill Acuña MD PCP: YG Pena Status:ADM I N Location: [place] [address] Reason for Visit Reason for Visit: Diagnoses Acute kidney failure, unspecified (01/02/25) Unspecified fall, initial encounter (01/02/25) Subjective Subjective Patient is a 59-year-old gentleman with recent multiple hospitalization presented to the emergency department with progressive generalized weakness and vomiting. This was apparently his third visit to the ED within a week. Patienthad been encouraged to be discharged to a detention facility he however declined. Objective Data Objective [...] (Auto) 68.0, Lymph % (Auto) 12.2 L, Harford % (Auto) 11.9 H, Eos % (Auto) [...] insufficiency fracture again noted, unchanged. Reading Location: [facility] Brain CT 01/02/25 03:55 IMPRESSION: No intracranial hemorrhage, mass effect or calvarial fracture. Moderate volume loss, atrophy again noted. Mild left maxillary sinus disease appears mildly decreased from the prior study. Reading Location: [facility] Cervical Spine CT 01/02/25 03:55 IMPRESSION: No fracture or malalignment. Multilevel spondylosis/discogenic change greatest at C5-6 Reading Location: [facility] Physical Exam Narrative GENERAL: cooperative HEENT: [...] Secondary to multiple medical comorbidities. Transfer to detention facility had been recommended to patient during previous hospitalization he did decline. I had a discussion with patient he is amenable to entertaining the idea of going to detention facility. Subsequently requested for PT OT eval and high school social studies tutor to assist with discharge planning 2. Severe [...] documentation, 38Minutes Charges/Coding Visit Charges Inpatient E&M: 10581 PROLNG IP/OBS E/M EA 15 MIN Multi Select Codes Visit Charges Visit Charges: 72068 PROLNG IP/OBS E/M EA 15 MIN 01/02/25 0958 <Electronically signed by Hill Acuña MD> Cosigner Signature (if applicable): CC: ~ Signed [facility] Work Phone: 1(901) 273-423006-01-2025 History and physical note Author Buster Fuchs [facility] Note Date/Time January 02, 2025 6:44a m [facility] Medical Records Department [address] [facility] [place] [address] H&P Exam - Hospitalist 01/02/25 0556 MR#: [id number] Acct: [id number] Name: FRANKLIN WIGGINS Rep #:[id number] : 1965 59 From: Buster duarte MD PCP: YG Pena Status:ADM I N [facility] HPI - General General Date [...] At that time he was transferred to [facility] 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 Was not considered to be a liver transplant candidate and was placed on anticoagulation. He has had a couple of readmissions for weakness and debility. [place] to possibly have aUTI given a staghorn [...] Heis receiving potassium infusion in the ER. [facility] Medical History Weakness Diarrhea Sepsis Acidosis, lactic [...] (Auto) 68.0, Lymph % (Auto) 12.2 L, Harford % (Auto) 11.9 H, Eos % (Auto) [...] insufficiency fracture again noted, unchanged. Reading Location: [facility] Brain CT 01/02/25 03:55 IMPRESSION: No intracranial hemorrhage, mass effect or calvarial fracture. Moderate volume loss, atrophy again noted. Mild left maxillary sinus disease appears mildly decreased from the prior study. Reading Location: [facility] Cervical Spine CT 01/02/25 03:55 IMPRESSION: No fracture or malalignment. Multilevel spondylosis/discogenic change greatest at C5-6 Reading Location: [facility] Assessment & Plan Assessment/Plan (1) Fall: [...] once verified Charges/Coding Visit Charges Inpatient E&M: 87654 Init Hosp L2 01/02/25 0644 <Electronically signed by Buster Fuchs MD> Cosigner Signature (if applicable): CC: CHORE TENDER-C Josy Elias; Dr. Buster Fuchs MD~ Signed [facility] Work Phone: 1([phone]) [phone] Discharge summary Author Roddy Reeves [facility] Note Date/Time January 02, 2025 6:00a m [facility] Medical Records Department [address] [place] [address] Emergency Department Summary 01/02/25 MR#: [id number] Acct: [id number] Name: FRANKLIN WIGGINS Rep #:[id number] : [...] was here recently and was sent home. [facility] Medical History Weakness Diarrhea Sepsis Acidosis, lactic [...] Patient following commands that he was at [facility] that wewere in the end of [...] (Auto) 68.0 Lymph % (Auto) 12.2 L [place] % (Auto) 11.9 H Eos % (Auto) [...] Clarity Turbid Urine pH 6.0 Ur Specific [place] 1.015 Urine Protein 100 H Urine Glucose [...] insufficiency fracture again noted, unchanged. Reading Location: [facility] Brain CT 01/02/25 03:55 IMPRESSION: No intracranial hemorrhage, mass effect or calvarial fracture. Moderate volume loss, atrophy again noted. Mild left maxillary sinus disease appears mildly decreased from the prior study. Reading Location: [facility] Cervical Spine CT 01/02/25 03:55 IMPRESSION: No fracture or malalignment. Multilevel spondylosis/discogenic change greatest at C5-6 Reading Location: [facility] Discharge Plan Triage Chief Complaint: Weakness [...] NP-C [Primary Care Provider] - Print Language: Finnish Disposition Disposition: Acute Care Hospital [facility] What to do if you have Problems For any increased pain, shortness of breath, bleeding, nausea or vomiting, chestpain, or any unexpected problems, contact your Primary Care Provider. Call [facility] ([phone]) or report to the closest Emergency Room. Call 911 if necessary. 01/02/25 0600 <Electronically signed by Roddy Reeves DO> Cosigner Signature (if applicable): CC: YG Elias ~ Signed [facility] Work Phone: 1(649) 626-358306-01-2025 Radiology Diagnostic study [facility]06-01-2025 Radiology Diagnostic study [facility]06-01-2025 Radiology Diagnostic study [facility] 12-30-2024 Radiology Diagnostic study [facility]05-25-2025 Radiology Diagnostic study [facility]05-14-2025 Radiology Diagnostic study [facility]04-20-2025 Radiology Diagnostic study [facility]04-17-2025 Telephone encounter Note* Telephone Encounter - [...] will be scheduled to follow up with [facility] Material Control Supervisor. JEANNINE asked that Dr. Mosley inform this pt that he can return to our transplant center again and be re-evaluated once he has addressed his prohibitive psychosocial concerns (lack of caregivers, unstable housing, unstable finances, unreliable transportation). Dr. Mosley agreed to do so. [facility] Work Phone: 1(881) 719-727004-17-2025 Miscellaneous Notes* Telephone Encounter - Marah Arauz [...] will be scheduled to follow up with [facility] Material Control Supervisor. JEANNINE asked that Dr. Mosley inform this [...] transportation. . Jeremi Abreu RN, BSN Liver Denture Technician [facility] Work Phone: [phone]) 395-962804-17-2025 Miscellaneous Notes* Telephone Encounter - Jeremi Abreu [...] transportation. . Jeremi Abreu RN, BSN Liver Denture Technician documented in this encounterAvita [facility]04-17-[facility]-20[facility]-20[facility] [facility]04-[facility] 11-15-20[facility]-20[facility]-20[facility]04-14-2025 History of Present illness Narrative* Marah [...] in this encounterAvita [facility]04-14-2025 [facility]04-14-2025 History of Present illness Narrative* Virgil Farley DDS - 11/15/2024 1:48 PM EDTSummary: Liver Transplant Dental Bedside Clearance See inpatient note for this encounter on 11/15/2024. Virgil Farley DDS documented in this encounterAvita Health [facility]04-14-20[address] Note[facility]04-13-2025 Note[facility]04-12-2025 Note[facility]04-11-2025 History of Present illness Narrative* Lizett [...] mg capsule(s) rifAXIMin 550 mg tab(s) (XIFAXAN) owcwgfr-uhldihehg-ryotbxj D3 500 mg-5 mcg (200 unit) 1 [...] Guzman, Juan Transplant Pharmacy Clinical Specialist Pager: [phone] documented in this encounterAvita Health [facility]04-11-20[address] Note[facility]04-11-2025 Note[facility]04-11-2025 History of Present illness Narrative* Jeremi Abreu RN - 11/12/2024 2:52 PM EDT The following information has been provided/discussed with the patient/family during Shared MedicalAppointment education class: Informed Consent for Organ Transplant Program Participation version February 20, 2023. SRTR information provided and questions answered. Informed patient to call tenant coordinator with any questions. UNOS information regarding [...] was also addressed Patient was provided with [facility] information sheet regarding transplantation of HepatitisC [...] LIMITATIONS AFFECTING LEARNING: None LEARNING RESPONSE [facility]AGNOSIS[facility] METHOD OF INSTRUCTION: Verbal instruction Video PATIENT / FAMILY RESPONSE: Information received as demonstrated by interest and questions FOLLOW-UP PLAN: Contact information given. SUPPLEMENTAL MATERIAL: None REFERRAL (RECOMMENDATION): None Electronically Signed By: Jeremi Abreu RN In Department: TRANSPLANT CENTER documented in this encounterAvita [facility]04-11-2025 [facility]04-11-2025 History of Present illness Narrative* [...] EDT INFORMED CONSENT Franklin Wiggins Medical Record: [id number] Informed consent for Organ Transplant Program Participation [...] questions answered. Jeremi Abreu RN, BSN Liver Denture Technician documented in this encounterAvita Health [facility]04-11-2025 Telephone encounter Note * Telephone Encounter - Jeremi Abreu RN - 11/12/2024 12:08 PM EDT INFORMED CONSENT Franklin Wiggins Medical Record: [id number] Informed consent for Organ Transplant Program Participation [...] questions answered. Jeremi Abreu RN, BSN Liver Denture Technician [facility] Work Phone: 1(340) 325-567804-11-2025 [facility]04-11-2025 NoteHNO ID: [id number] Author: KIRTI VELÁSQUEZ RN Service: Nursing Author Type: Registered Nurse Type: Nursing Progress Note Filed: 11/12/2024 00:58 Note Text: Other: PTTAC-no clot detected at 320-heparin gtt stopped-need futher orders-solution lead notifiedSt. Charles Hospital04-10-2025 [facility] 11-11-20[address] Note[facility] [facility]04-10-2025 NoteSt[facility]04-09-2025 Discharge summary Author Kathie Powers [facility] Note Date/Time November 10, 2024 8:42 pm [facility] Medical Records Department [address] [place] [address] Discharge Summary 11/10/241936 MR#: [id number] Acct: [id number] Name: FRANKLIN WIGGINS Rep #:[id number] : 1965 59 From: Kathie Powers MD PCP: Care Physician,No Primary Status :ADM IN Location: [place] [address]- Providers Date of Admission: 10/29/24 Date of Discharge: 11/10/24 Primary Care Physician: No Primary Care Phys Consultations 10/29/24 01:15 Consult: Urology Routine Consulting Provider: Foster Rascon Reason for Consult: Sepsis with UTI and Staghorn Calculus. EMERGENT Consult: No MD Notified: Yes Date Notified: 10/29/24 Time Notified: 08:07 Method of Notification: Verbal 10/29/24 01:47 Consult: Chucking And Boring Machine Operator / Pulmonary Medicine Routine Consulting Provider: Intensivists/Pulmonary Med Reason for Consult: Sepsis, UTI, Diarrhea, Abdominal Pain and Back Pain. EMERGENT Consult: No MD Notified: Yes Date Notified: 10/29/24 Time Notified: 04:58 Method of Notification: Text 10/30/24 03:54 Consult: Gastroenterology Routine Consulting Provider: [facility] Reason for Consult: BOYER, elevated ammonia EMERGENT Consult: No MD Notified: Yes Date Notified: 10/30/24 Time Notified: 07:31 Method of Notification: Text 11/09/24 21:26 Consult: Gastroenterology Routine Consulting Provider: [facility] Reason for Consult: cirrhosis,ascites,splenic thrombosis, low plts, possible dec in heidy motili EMERGENT Consult: No MD Notified: Yes Date Notified: 11/10/24 Time Notified: 05:35 Method of Notification: Text Consult: Oncology/Hematology Routine Consulting Provider: *[facility] Reason for Consult: splenic [...] diabetes, staghorn colliculi, cirrhosis who presented to [facility] ED 10/29/2024 with sepsis and [...] heme-onc was in agreement. Reach out to [facility] and ultimately patient was accepted by the grease renderer Dr. Neal. Patient with bed assignment 11/10, patient to be transferred to [facility] Physical Exam Narrative General: Sleeping but [...] 83.0 H, Lymph % (Auto) 6.6 L, [place] % (Auto) 6.9, Eos % (Auto) 1.9, [...] Clarity Turbid, Urine pH 6.5, Ur Specific [place] 1.015, Urine Protein 500 H, Urine Glucose [...] Caro; Foster Rascon; Buster Fuchs;Hill Acuña; Hill Herramnn; Blair Cage; Thiago Wray; Gabbi Hughes; Thai Godfrey; Juan Daniel Garza; Zachariah Glover; Scott Weston; Yue Delgadillo CHORE TENDER Discharge Orders/Prescriptions Prescriptions: No Action lidocaine 5 [...] or pain) [facility] Week Care Physician,No Primary [Primary Care Provider] - Disposition Disposition (needs filled in before D/C Order can be placed): Acute Care Hospital Charges/Coding Visit Charges Inpatient E&M: 30078 Disch Hosp >30min 11/10/242041 <Electronically signed by Kathie Powers MD> Cosigner Signature (if applicable): CC: Dr. Kathie Powers MD; No Primary Care Physician~ Signed [facility] Work Phone: [phone] Discharge summary Author Kathie Powers [facility] Note Date/Time November 10, 2024 7:37 pm [facility] Medical Records Department [address] [place] [address] Instructions for Home/Discharge Instructions 11/10/241935 MR#: [id number] Acct: [id number] Name: FRANKLIN WIGGINS Rep #:[id number] : [...] Garza; Zachariah Glover; Scott Weston; Yue Delgadillo CHORE TENDER Discharge Orders/Prescriptions Prescriptions: No Action lidocaine 5 [...] or pain) [facility] - [facility] Week Care Physician,No Primary [Primary Care Provider] - Disposition Disposition (needs filled in before D/C Order can be placed): [facility] ([place], [place]) 11/10/241936<Electronically signed by Kathie Powers MD>Kathie Powers MD CC: CHORE TENDER-C Yue Delgadillo; Dr. Hill Herrmann MD; Dr. Hlil Acuña MD; Dr. Hill Caro DO; Dr. Thiago Wray MD; Dr. Blair Cage MD; Dr. Foster Gresham MD; Dr. Gabbi Hughes MD; Dr. Buster Fuchs MD; Dr. Thai Godfrey MD; Dr. Zachariah Glover MD; Dr. Juan Daniel Garza MD; Dr. Scott Weston, ; No Primary Care Physician ~ Signed [facility] Work Phone: [phone] Consult note Author Foster Rascon [facility] Note Date/Time November 10, 2024 8:59 am [facility] Medical Records Department [address] [place] [address] Consultation 11/10/24 0857 MR#: [id number] Acct: [id number] Name: FRANKLIN WIGGINS Rep #:[id number] : 1965 59 From: Foster Rascon MD PCP: Care Physician,No Primary Status :ADM IN Location: [facility] [id number] Consult Date of Consult: 11/10/24 59-year-old [...] applicable): CC: No Primary Care Physician~ Signed [facility] Work Phone: [phone] Progress note Author Kathie [facility] Note Date/Time November 09, 2024 9:26 pm [facility] Medical Records Department [address] [place] [address] Progress Note - Hospitalist 11/09/242120 MR#: [id number] Acct: [id number] Name: FRANKLIN WIGGINS Rep #:[id number] : 1965 59 From: Kathie Powers MD PCP: Care Physician,No Primary Status :ADM IN Location: [place] [address] scan w/ ascites and [...] Cosigner Signature (if applicable): CC: ~ Signed [facility] Work Phone: [phone] Progress note Author Kathie Powers [facility] Note Date/Time November 09, 2024 6:54 pm [facility] Medical Records Department [address] [place] [address] Progress Note - Hospitalist 11/09/24 1850 MR#: [id number] Acct: [id number] Name: FRANKLIN WIGGINS Rep #:[id number] : 1965 59 From: Kathie Powers MD PCP: Care Physician,No Primary Status :ADM IN Location: [place] [address] Reason for Visit Reason for Visit: Diagnoses [...] 79.1 H, Lymph % (Auto) 8.2 L, [place] % (Auto) 8.1, Eos % (Auto) 3.0, [...] with interval NG tube removal. Reading Location: [facility] Rhythm Strip Rhythm Strip: Sinus [...] 42 Minutes Charges/Coding Visit Charges Inpatient E&M: 69344 Subs Hosp L2 11/09/24 8694 <Electronically signed by Kathie Powers MD> Cosigner Signature (if applicable): CC: ~ Signed [facility] Work Phone: [phone]) 130-918004-08-2025 Radiology Diagnostic study [facility]04-08-2025 Radiology Diagnostic study [facility]04-07-2025 Progress note Author Kathie Powers [facility] Note Date/Time November 08, 2024 6:26 pm [facility] Medical Records Department [address] [place] [address] Progress Note - Hospitalist 11/08/24 1441 MR#: [id number] Acct: [id number] Name: FRANKLIN WIGGINS Rep #:[id number] : 1965 59 From: Kathie Powers MD PCP: Care Physician,No Primary Status :ADM IN Location: [place] [address] Reason for Visit Reason for Visit: Diagnoses [...] scale insulin - Changed glucose checks to [facility] - Increase sliding scale factor - Will [...] 56 Minutes Charges/Coding Visit Charges Inpatient E&M: 26502 Subs Hosp L3 11/08/24 1503 <Electronically signed [...] Cosigner Signature (if applicable): cc: ~* Signed [facility] Work Phone: [phone] Progress note Author Hill Acuña [facility] Note Date/Time November 07, 2024 10:3 8am [facility] Medical Records Department [address] [place] [address] Progress Note - Hospitalist 11/07/24 0913 MR#: [id number] Acct: [id number] Name: FRANKLIN WIGGINS CARMELA Rep #:[id number] : 1965 59 From: Hlil Acuña MD PCP: Care Physician,No Primary Status :ADM IN Location: [place] [address] Reason for Visit Reason for Visit: Diagnoses [...] 81.5 H, Lymph % (Auto) 6.9 L, [place] % (Auto) 6.9, Eos % (Auto) 2.3, [...] ? Requested for PT OT eval and high school social studies tutor to assist with discharge planning ? 11/05/2024; [...] 36 Minutes Charges/Coding Visit Charges Inpatient E&M: 72109 Subs Hosp L2 11/07/24 1038 <Electronically signed by Hill Acuña MD> Cosigner Signature (if applicable): CC: ~ Signed [facility] Work Phone: [phone] Progress note Author Hill Acuña [facility] Note Date/Time November 06, 2024 10:5 7am [facility] Medical Records Department [address] [place] [address] Progress Note - Hospitalist 11/06/24 0756 MR#: [id number] Acct: [id number] Name: FRANKLIN WIGGINS Rep #:[id number] : 1965 59 From: Hill Acuña MD PCP: Care Physician,No Primary Status :ADM IN Location: [place] [address] Reason for Visit Reason for Visit: Diagnoses [...] ? Requested for PT OT eval and high school social studies tutor to assist with discharge planning ? 11/05/2024; [...] 36 Minutes Charges/Coding Visit Charges Inpatient E&M: 41299 Subs Hosp L2 11/06/24 1057 <Electronically signed by Hill Acuña MD> Cosigner Signature (if applicable): CC: ~ Signed [facility] Work Phone: [phone] Progress note Author Hill Acuña [facility] Note Date/Time November 05, 2024 9:26 am [facility] Medical Records Department [address] [place] [address] Progress Note - Hospitalist 11/05/24 0924 MR#: [id number] Acct: [id number] Name: FRANKLIN WIGGINS Rep #:[id number] : 1965 59 From: Hill Acuña MD PCP: Care Physician,No Primary Status :ADM IN Location: [facility] [id number] Reason for Visit Reason for Visit: [...] 81.0 H, Lymph % (Auto) 6.7 L, [place] % (Auto) 7.1, Eos % (Auto) 2.3, [...] ? Requested for PT OT eval and high school social studies tutor to assist with discharge planning ? 11/05/2024; [...] 38 Minutes Charges/Coding Visit Charges Inpatient E&M: 01776 Subs Hosp L2 11/05/24 0926 <Electronically signed by Hill Acuña MD> Cosigner Signature (if applicable): CC: ~ Signed [facility] Work Phone: [phone] Progress note Author Hill Acuña [facility] Note Date/Time November 04, 2024 11:5 0am [facility] Medical Records Department [address] [place] [address] Progress Note - Hospitalist 11/04/24 1105 MR#: [id number] Acct: [id number] Name: FRANKLIN WIGGINS Rep #:[id number] : 1965 59 From: Hill Acuña MD PCP: Care Physician,No Primary Status :ADM IN Location: [facility] [id number] Reason for Visit Reason for Visit: [...] 83.6 H, Lymph % (Auto) 4.9 L, [place] % (Auto) 5.9, Eos % (Auto) 1.1, [...] ? Requested for PT OT eval and high school social studies tutor to assist with discharge planning Time spent in the patient's overall evaluation,decision-making process, review of diagnostic data, adjustment of management, discussion with other providers, nursing nursing and ancillary staff involved in patient's care documentation, 38 Minutes Charges/Coding Visit Charges Inpatient E&M: 00384 Subs Hosp L2 11/04/24 1150 <Electronically signed by Hill Acuña MD> Cosigner Signature (if applicable): CC: ~ Signed [facility] Work Phone: [phone] Progress note Author [facility] Note Date/Time November 04, 2024 6:43 am [facility] Medical Records Department [address] [place] [address] Progress Note - Hospitalist 11/04/24 0642 MR#: [id number] Acct: [id number] Name: FRANKLIN WIGGINS Rep #:[id number] : 1965 59 From: Maria Guadalupe Shore MD PCP: Care Physician,No Primary Status :ADM IN Location: [place] [address] Hospitalist Note Patient with 15 beat asymptomatic VT. Electrolytes recently checked, mag normal range, K normal range. 11/04/24 0643 <Electronically signed by Maria Guadalupe Shore MD> Cosigner Signature (if applicable): CC: ~ Signed [facility] Work Phone: [phone] Progress note Author Maria Guadalupe Shore [facility] Note Date/Time November 03, 2024 10:3 8pm [facility] Medical Records Department [address] [place] [address] Progress Note - Hospitalist 11/03/242236 MR#: [id number] Acct: [id number] Name: GEREMIASFRANKLIN Rep #:[id number] : 1965 59 From: Maria Guadalupe Shore MD PCP: Care Physician,No Primary Status :ADM IN Location: [place] [address] Hospitalist Note Patient with mildly tachycardia through the late afternoon and evening. Will administer 500 cc bolus and reassess. From review of medications not normally onBB therapy. 11/03/242237 <Electronically signed by Maria Guadalupe Shore MD> Cosigner Signature (if applicable): CC: ~ Signed [facility] Work Phone: [phone] Progress note Author [facility] Note Date/Time November 03, 2024 10:2 7am [facility] Medical Records Department [address] [place] [address] Progress Note - Hospitalist 11/03/24 1025 MR#: [id number] Acct: [id number] Name: FRANKLIN WIGGINS Rep #:[id number] : 1965 59 From: Hill Acuña MD PCP: Care Physician,No Primary Status :ADM IN Location: [place] [address] Reason for Visit Reason for Visit: Diagnoses [...] ? Requested for PT OT eval and high school social studies tutor to assist with discharge planning Time spent in the patient's overall evaluation,decision-making process, review of diagnostic data, adjustment of management, discussion with other providers, nursing nursing and ancillary staff involved in patient's care documentation, 38 Minutes Charges/Coding Visit Charges Inpatient E&M: 82212 Subs Hosp L2 11/03/24 1027 <Electronically signed by Hill Acuña MD> Cosigner Signature (if applicable): CC: ~ Signed [facility] Work Phone: [phone] Progress note Author Hill Acuña [facility] Note Date/Time November 02, 2024 10:0 5am [facility] Medical Records Department [address] [place] [address] Progress Note - Hospitalist 11/02/24 0804 MR#: [id number] Acct: [id number] Name: FRANKLIN WIGGINS Rep #:[id number] : 1965 59 From: Hill Acuña MD PCP: Care Physician,No Primary Status :ADM IN Location: [place] [address] Reason for Visit Reason for Visit: Diagnoses [...] 50 Minutes Charges/Coding Visit Charges Inpatient E&M: 03185 Subs Hosp L3 11/02/24 1005 <Electronically signed by Hill Acuña MD> Cosigner Signature (if applicable): CC: ~ Signed [facility] Work Phone: [phone] 370-412903-31-2025 Progress note Author Hill Glasskarma [facility] Note Date/Time November 01, 2024 11: 41am [facility] Medical Records Department [address] [place] [address] Progress Note - Hospitalist 11/01/24 1128 MR#: [id number] Acct: [id number] Name: FRANKLIN WIGGINS Rep #:[id number] : 1965 59 From: Hill Acuña MD PCP: Care Physician,No Primary Status :ADM IN Location: [place] [address] Reason for Visit Reason for Visit: Diagnoses [...] 50 Minutes Charges/Coding Visit Charges Inpatient E&M: 76174 Subs Hosp L3 11/01/24 1141 <Electronically signed by Hill Acuña MD> Cosigner Signature (if applicable): CC: ~ Signed [facility] Work Phone: [phone] Progress note Author Niranjan Li [facility] Note Date/Time November 01, 2024 8:4 4am [facility] Medical Records Department [address] [place] [address] [place] [address] Progress Note 11/01/24 0836 MR#: [id number] Acct: [id number] Name: FRANKLIN WIGGINS Rep #:[id number] : 1965 59 From: Niranjan Friend PCP: Care Physician,No Primary Status :ADM IN Location: [place] [address] Progress Note Patient has a little bit [...] doses of vancomycin. Visit Charges Inpatient E&M: 51376 [facility] Hosp L3 11/01/24 0844 <Electronically signed by Niranjan Li DO> Niranjan Li DO Cosigner Signature (if applicable): CC: ~ Signed [facility] Work Phone: [phone] Consult note Author Ale Renee [facility] Note Date/Time November 01, 2024 6:1 1am [facility] Medical Records Department [address] [place] [address] Pharmacokinetic/Renal -Consult 11/01/24 0604 MR#: [id number] Acct: [id number] Name: FRANKLIN WIGGINS Rep #:[id number] : 1965 59 From: Ale Renee PCP: Care Physician,No Primary Status :ADM IN Location: [place] [id number]- Consult Antibiotic Management Pharmacy has been consulted [...] Date Hill Caro DO CC: ~ Signed [facility] Work Phone: [phone] Progress note Author Buster Fuchs [facility] Note Date/Time October 31, 2024 9:5 5am [facility] Medical Records Department [address] [place] [address] Progress Note - Hospitalist 10/31/24951 MR#: [id number] Acct: [id number] Name: FRANKLIN WIGGINS Rep #:[id number] : [...] (Auto) 80.3 H, Lymph %(Auto) 5.9 L, [place] % (Auto) 7.9, Eos % (Auto) 1.5, [...] they did add IV Flagyl ? Appreciate general manager land department assistance 2. Acute metabolic cephalopathy with nonalcoholic [...] DVT: SCDs Charges/Coding Visit Charges Inpatient E&M: 16483 Subs Hosp L2 10/31/24 0955 <Electronically signed by Buster Fuchs MD> Cosigner Signature (if applicable): CC: ~ Signed [facility] Work Phone: [phone] Consult note Author Foster Rascon [facility] Note Date/Time October 31, 2024 7:3 1am [facility] Medical Records Department [address] [place] [address] Consultation 10/31/24 0730 MR#: [id number] Acct: [id number] Name: FRANKLIN WIGGINS Rep #:[id number] : [...] applicable): CC: No Primary Care Physician~ Signed [facility] Work Phone: [phone] Consult note Author Niranjan Li [facility] Note Date/Time October 30, 2024 9:3 4pm [facility] Medical Records Department [address] [place] [address] Consultation - GI 10/30/242047 MR#: [id number] Acct: [id number] Name: FRANKLIN WIGGINS Rep #:[id number] : [...] of yellow-colored fluid removed. He presented backto [facility] ER complaining of abdominal pain, [...] He is also on Zosyn for urosepsis. [facility] Medical History Chronic hypotension Obesity (BMI 30-39.9) [...] 85.6 H, Lymph % (Auto) 4.3 L, [place] % (Auto) 7.3, Eos % (Auto) 0.5, [...] NG tube in satisfactory position. Reading [facility] Assessment & Plan Assessment/Plan (1) Sepsis: QUALIFIERS: [...] this admission. Charges/Coding Visit Charges Inpatient E&M: 50843 Init Hosp L3 10/30/242133 <Electronically signed by Niranjan Li DO> Cosigner Signature (if applicable): CC: No Primary Care Physician~ Signed [facility] Work Phone: [phone] Consult note Author Kourtney Reece [facility] Note Date/Time October 30, 2024 4:[address] [place] [address] Medical Records Department [address] [facility] [facility] [place] [address] Pharmacokinetic/Renal -Consult 10/30/24 1552 MR#: [id number] Acct: [id number] Name: FRANKLIN WIGGINS Rep #:[id number] : [...] Date Buster Fuchs MD CC: ~ Signed [facility] Work Phone: [phone] Progress note Author Jeff [facility] Note Date/Time October 30, 2024 10: 45am [facility] Medical Records Department [address] [place] [address] Progress Note - Chucking And Boring Machine Operator 10/30/24 1037 MR#: [id number] Acct: [id number] Name: FRANKLIN WIGGINS Rep #:[id number] : [...] Lidocaine 5% Patch TOPICAL Not Given DAILY [facility] Protocol Midodrine 10 mg 10/29/24 02:00 [...] 85.5 H, Lymph % (Auto) 4.6 L, [place] % (Auto) 7.4, Eos % (Auto) 1.2, [...] 85.6 H, Lymph % (Auto) 4.3 L, [place] % (Auto) 7.3, Eos % (Auto) 0.5, [...] NG tube in satisfactory position. Reading [facility] Assessment and Plan . Assessment and plan: [...] Cosigner Signature (if applicable): CC: ~ Signed [facility] Work Phone: [phone] Consult note Author Foster Rascon [facility] Note Date/Time October 30, 2024 9:5 8am [facility] Medical Records Department [address] [place] [address] Consultation - Urology 10/30/24 0956 MR#: [id number] Acct: [id number] Name: FRANKLIN WIGGINS Rep #:[id number] : [...] not available on the weekend here at [facility]. We discussed transferring to other hospital for nephrostomy tube placement. We could also have a nephrostomy tube placed on Friday if radiology services are available. For now we will continue with broad-spectrum antibiotics await culture results but if things progress I think he is going to need nephrostomy tube we will continue to follow. [facility] Medical History Chronic hypotension Obesity (BMI 30-39.9) [...] 85.5 H, Lymph % (Auto) 4.6 L, [place] % (Auto) 7.4, Eos % (Auto) 1.2, [...] 85.6 H, Lymph % (Auto) 4.3 L, [place] % (Auto) 7.3, Eos % (Auto) 0.5, [...] NG tube in satisfactory position. Reading Location[facility] 10/30/24 0958 <Electronically signed by Foster Rascon MD> Cosigner Signature (if applicable): CC: No Primary Care Physician~ Signed [facility] Work Phone: [phone] Progress note Author Buster Fuchs [facility] Note Date/Time October 30, 2024 8:2 9am [facility] Medical Records Department [address] [place] [address] Progress Note - Hospitalist 10/30/24819 MR#: [id number] Acct: [id number] Name: FRANKLIN WIGGINS CARMELA Rep #:[id number] [...] 85.5 H, Lymph % (Auto) 4.6 L, [place] % (Auto) 7.4, Eos % (Auto) 1.2, [...] 85.6 H, Lymph % (Auto) 4.3 L, [place] % (Auto) 7.3, Eos % (Auto) 0.5, [...] 3. Left-sided ureteral stent noted. Reading Location: [facility] Rhythm Strip Rhythm Strip: Sinus [...] antibiotics ? Cultures are pending ? Appreciate general manager land department assistance 2. Acute metabolic cephalopathy with nonalcoholic [...] DVT: SCDs Charges/Coding Visit Charges Inpatient E&M: 21513 Subs Hosp L2 10/30/24 0829 <Electronically signed by Buster Fuchs MD> Cosigner Signature (if applicable): CC: ~ Signed [facility] Work Phone: [phone] Radiology Diagnostic study [facility]03-28-2025 Consult note Author Foster Rascon [facility] Note Date/Time October 29, 2024 10: 32am [facility] Medical Records Department [address] [place] [address] Consultation - Urology 10/29/24 0808 MR#: [id number] Acct: [id number] Name: FRANKLIN WIGGINS Rep #:[id number] : [...] emergency intervention is necessary from my standpoint [facility] Medical History Chronic hypotension Obesity (BMI 30-39.9) [...] 83.0 H, Lymph % (Auto) 5.6 L, [place] % (Auto) 8.4, Eos % (Auto) 1.4, [...] vertebral body compression fracture deformities. Reading Location: [facility] 10/29/24 1032 <Electronically signed by Foster Rascon MD> Cosigner Signature (if applicable): CC: No Primary Care Physician~ Signed [facility] Work Phone: [phone] Consult note Author Bola Meraz [facility] Note Date/Time October 29, 2024 10: 24am [facility] Medical Records Department [address] [facility] [place] [address] Consultation - Chucking And Boring Machine Operator 10/29/24 0744 MR#: [id number] Acct: [id number] Name: FRANKLIN WIGGINS Rep #:[id number] : [...] coverage initiated. This note was generated with [employer] dictation software. It may contain incorrectwords, spelling, [...] stable, without the need for vasopressor support. [facility] Medical History Chronic hypotension Obesity (BMI 30-39.9) [...] 83.0 H, Lymph % (Auto) 5.6 L, [place] % (Auto) 8.4, Eos % (Auto) 1.4, [...] vertebral body compression fracture deformities. Reading Location: [id number] Charges/Coding Visit Charges Inpatient E&M: 07164 Init Hosp L3 10/29/24 1024 <Electronically signed by Bola Meraz DO> Cosigner Signature (if applicable): CC: No Primary Care Physician~ Signed [facility] Work Phone: [phone] Radiology Diagnostic study [facility]03-28-2025 History and physical note Author Hill Wright [facility] Note Date/Time October 29, 2024 6:4 7am [facility] Medical Records Department [address] [place] [address] H&P Exam - Hospitalist 10/29/24 0033 MR#: [id number] Acct: [id number] Name: FRANKLIN WIGGINS Rep #:[id number] : [...] toSeptember 02, 2024 with patient diagnosed with acuuw-iu-fuqpdym hypotension in thesetting of acute hepatic encephalopathy [...] fluid removed who once again presents to [facility] ER complaining of abdominal pain, [...] thatis expected to extend beyond 2 midnights. [facility] Medical History Chronic hypotension Obesity (BMI 30-39.9) [...] 83.0 H, Lymph % (Auto) 5.6 L, [place] % (Auto) 8.4, Eos % (Auto) 1.4, [...] vertebral body compression fracture deformities. Reading Location: [facility] Assessment & Plan Assessment/Plan (1) [...] and sensitivity data. Give acetaminophen prn for ijgl-qx-yqfgzzvj (level 1-5/10) pain or fever. Give morphine [...] appreciated in advance. Finally, we will consult general manager land department to see this patient on-rounds in the AM for further recommendations with help appreciated in advance. 2. Admission here from August 29, 2024 to September 02, 2024 with patient diagnosed with seyru-it-yohdgfi hypotension in the setting of acute hepatic [...] responsive hypotension Charges/Coding Visit Charges Inpatient E&M: 80610 Init Hosp L3 10/29/24 0647 <Electronically signed by Hill Caro DO> Cosigner Signature (if applicable): CC: Dr. Hill Caro DO; No Primary Care Physician~ Signed [facility] Work Phone: 1([phone]) 630-805303-28-2025 Consult note Author Ale Renee [facility] Note Date/Time October 29, 2024 3:3 4am [facility] Medical Records Department [address] [place] [address] Pharmacokinetic/Renal -Consult 10/29/24316 MR#: [id number] Acct: [id number] Name: FRANKLIN WIGGINS Rep #:[id number] : [...] Date Hill Caro DO CC: ~ Signed [facility] Work Phone: 1([phone]) [phone] Discharge summary Author Alber Dunn [facility] Note Date/Time October 29, 2024 1:0 4am [facility] Medical Records Department [address] [place] [address] Emergency Department Summary 10/28/24 MR#: [id number] Acct: [id number] Name: FRANKLIN WIGGINS Rep #:[id number] : [...] 83.0 H Lymph % (Auto) 5.6 L Harford % (Auto) 8.4 Eos % (Auto) 1.4 [...] Clarity Cloudy Urine pH 6.5 Ur Specific Ardmore 1.015 Urine Protein 500 H Urine Glucose [...] vertebral body compression fracture deformities. Reading Location: [facility] Rhythm Strip Rhythm Strip: Sinus Rhythm Rate: 83 Ectopy: None EKG Initial EKG: Attestation: I personally reviewed and interpreted this EKG as follows: Interpretation: Sinus Rhythm and No Acute Injury Pattern Comments: Normal sinus rhythm rate 83 no acute signs of TX or ischemia. No dysrhythmia. Critical Care Time Critical Care Time: Yes Critical care time (excluding procedures): 30-74 minutes, Including time spent:,Discussing w/Patient &/or Family/Business Transformation Manager, Discussing w/Consultants, ArrangingAdmission or Transfer, Performing Direct Patient Care at Bedside and - (38 min) Discharge Plan Dx/Rx/DC Orders Clinical Impression: Chronic back pain, Chronic abdominal pain, Leukocytosis, Acute UTI, Acute hypotension, Acidosis, lactic, Sepsis Disposition Disposition: [facility] What to do if you have Problems For any increased pain, shortness of breath, bleeding, nausea or vomiting, chestpain, or any unexpected problems, contact your Primary Care Provider. Call [facility] ([phone]) or report to the closest Emergency Room. Call 911 if necessary. 10/29/24 010 <Electronically signed by Alber Dunn MD> Cosigner Signature (if applicable): CC: No Primary Care Physician ~ Signed [facility] Work Phone: [phone]) 280-349603-28-2025 Evaluation note* Diagnosis Onset Date Resolution Status Admit Date Clostridium difficile colitis acute October 29, 2024 12:43am History of uric acid staghor n calculus acute October 29, 2024 12:43am Hyponatremia acute October 29, 2024 12:43am Leukocytosis acute October 29, 2024 12:43am Obesity (BMI 30.0-34.9) acute M arch 2024 12:43am Chronic abdominal pain chronic [facility] 2024 12:43am Chronic back pain chronic October [...] 2024 7:00am Lactic acidosis acute January 7:00am [facility] Work Phone: 1([phone]) [phone] Evaluation note* Diagnosis Onset Date Resolution Status [...] January 7:00am Umbilical hernia acute January 7:00am [facility] Work Phone: [phone]) [phone] Evaluation note* Diagnosis Onset Date Resolution Status Admit Date Clostridium difficile colitis acute October 29, 2024 12:43am History of uric acid staghor n calculus acute October 29, 2024 12:43am Hyponatremia acute October 29, 2024 12:43am Leukocytosis acute October 29, 2024 12:43am Obesity (BMI 30.0-34.9) acute M arch 2024 12:43am Chronic abdominal pain chronic [facility] 2024 12:43am Chronic back pain chronic October [...] January 7:00am Umbilical hernia inactive January 7:00am [facility] Work Phone: [phone]) [phone] Evaluation note* Diagnosis Onset Date Resolution Status [...] Chronic anemia chronic February 16, 2025 6:26pm [facility] Work Phone: [phone] Discharge summary [facility] Medical Records Department [address] [place] [address] Emergency Department Summary 10/28/24 MR#: [id number] Acct: [id number] Name: FRANKLIN WIGGINS Rep #:[id number] : [...] Prior similar symptoms: Yes Recent Illness/Hospitalization: [facility] Medical History Chronic hypotension Obesity (BMI 30-39.9) [...] There is a pressure was 81/50 5 ojlbyw16/60 when I am in the room it [...] sepsis. Currently he is stable at12:10 AM. [facility] blood pressure is 110/67. Spoke to the [...] 83.0 H Lymph % (Auto) 5.6 L Harford % (Auto) 8.4 Eos % (Auto) 1.4 [...] Clarity Cloudy Urine pH 6.5 Ur Specific Ardmore 1.015 Urine Protein 500 H Urine Glucose [...] vertebral body compression fracture deformities. Reading Location: [facility] Rhythm Strip Rhythm Strip: Sinus Rhythm Rate: 83 Ectopy: None EKG Initial EKG: Attestation: I personally reviewed and interpreted this EKG as follows: Interpretation: Sinus Rhythm and No Acute Injury Pattern Comments: Normal sinus rhythm rate 83 no acute signs of TX or ischemia. No dysrhythmia. Critical Care Time Critical Care Time: Yes Critical care time (excluding procedures): 30-74 minutes, Including time spent:,Discussing w/Patient &/or Family/Business Transformation Manager, Discussing w/Consultants, ArrangingAdmission or Transfer, Performing Direct Patient Care at Bedside and - (38 min) Discharge Plan Dx/Rx/DC Orders Clinical Impression: Chronic back pain, Chronic abdominal pain, Leukocytosis, Acute UTI, Acute hypotension, Acidosis, lactic, Sepsis Disposition Disposition: Acute Care Hospital [facility] What to do if you have Problems For any increased pain, shortness of breath, bleeding, nausea or vomiting, chestpain, or any unexpected problems, contact your Primary Care Provider. Call [facility] ([phone]) or report tothe closest Emergency Room. Call 911 if necessary. 10/29/24 0104 Cosigner Signature (if applicable): CC: No Primary Care Physician ~ Signed [facility]03-27-2025 Radiology Diagnostic study note [facility] Imaging Services [address] [place] [address] Abdomen/Pelvis W IV Cont ONLY MR#: [id number] Acct: [id number] Name: FRANKLIN WIGGINS Rep #: [id number] : 1965 M 59 From: Cassandra Starkey MD PCP: Care Physician,No Primary Status: REG ER Study:Abdomen/Pelvis W IV Cont ONLY Date of E xam: 10/28/24 Exam# [id number] Ordering Dr: Tee Dunn MD PROCEDURE: ABDOMEN/PELVIS [...] vertebral body compression fracture deformities. Reading Location: [id number] CC: Dr. Alber Dunn MD; No Primary Care Physician ~ Lens Finisher: Signed [facility]03-27-2025 Discharge summary Author Alber Dunn [facility] Note Date/Time October 29, 2024 1:0 4am [facility] Medical Records Department [address] [place] [address] Emergency Department Summary 10/28/24 MR#: [id number] Acct: [id number] Name: FRANKLIN WIGGINS Rep #:[id number] : [...] There is a pressure was 81/50 5 kckwew27/60 when I am in the room it [...] 83.0 H Lymph % (Auto) 5.6 L Harford % (Auto) 8.4 Eos % (Auto) 1.4 [...] Clarity Cloudy Urine pH 6.5 Ur Specific Ardmore 1.015 Urine Protein 500 H Urine Glucose [...] vertebral body compression fracture deformities. Reading Location: [facility] Rhythm Strip Rhythm Strip: Sinus Rhythm Rate: 83 Ectopy: None EKG Initial EKG: Attestation: I personally reviewed and interpreted this EKG as follows: Interpretation: Sinus Rhythm and No Acute Injury Pattern Comments: Normal sinus rhythm rate 83 no acute signs of TX or ischemia. No dysrhythmia. Critical Care Time Critical Care Time: Yes Critical care time (excluding procedures): 30-74 minutes, Including time spent:,Discussing w/Patient &/or Family/Business Transformation Manager, Discussing w/Consultants, ArrangingAdmission or Transfer, Performing Direct Patient Care at Bedside and - (38 min) Discharge Plan Dx/Rx/DC Orders Clinical Impression: Chronic back pain, Chronic abdominal pain, Leukocytosis, Acute UTI, Acute hypotension, Acidosis, lactic, Sepsis Disposition Disposition: [facility] What to do if you have Problems For any increased pain, shortness of breath, bleeding, nausea or vomiting, chestpain, or any unexpected problems, contact your Primary Care Provider. Call [facility] ([phone]) or report to the closest Emergency Room. Call 911 if necessary. 10/29/24 0104 <Electronically signed by Alber Dunn MD> Cosigner Signature (if applicable): CC: No Primary Care Physician ~ Signed [facility] Work Phone: 1([phone]) 562-795303-03-2025 Procedure note* Joey Huang DO - 10/04/2024 5:17 PM ESTAssociated Order(s): Paracentesis Post-Procedure Diagnose(s): Other ascites Paracentesis Date/Time: 10/04/2024 5:17 PM Performed by: Joey Huang DO Authorized by: Joey Huang DO Consent: Consent obtained: Written Consent given by: Patient Risks, benefits, and alternatives were discussed: yes Risks discussed: Bleeding, bowel perforation and infection Alternatives discussed: No treatment [facility] protocol: Procedure explained and questions answered to [...] Adhesive bandage Post-procedure details: Procedure completion: Tolerated [facility] Work Phone: [phone]) [phone] Procedure note* Joey Huang DO - 10/04/2024 5:17 PM ESTAssociated Order(s): Paracentesis Post-Procedure Diagnose(s): Other ascites Paracentesis Date/Time: 10/04/2024 5:17 PM Performed by: Joey Huang DO Authorized by: Joey Huang DO Consent: Consent obtained: Written Consent given by: Patient Risks, benefits, and alternatives were discussed: yes Risks discussed: Bleeding, bowel perforation and infection Alternatives discussed: No treatment [facility] protocol: Procedure explained and questions answered to [...] details: Procedure completion: Tolerated documented in this [facility] Work Phone: 1([phone]) 498-973403-03-2025 Consult note* Joey Huang DO - 10/04/2024 5:13 PM EST Reason For Consult Ascites History Of Present Illness Franklin Wiggins is a 59 y.o. male presenting with abdominal pain. He presented to the emergency room from [facility] secondary to increasing abdominal girth pain and ascites He was recently drained at [facility] for his ascites His abdomen is [...] call Assessment & Plan Joey Huang DO [facility] Work Phone: [phone]) [phone] Consult note* Joey Huang DO - 10/04/2024 5:13 PM EST Reason For Consult Ascites History Of Present Illness Franklin Wiggins is a 59 y.o. male presenting with abdominal pain. He presented to the emergency room from [facility] secondary to increasing abdominal girth pain and ascites He was recently drained at [facility] for his ascites His abdomen is [...] Joey M Young, DO documented in this [facility] Work Phone: [phone] Physician Emergency department Note* Sriram Oleary PA-C [...] Abnormality Status --------- ------ Urinalysis with Reflex C...[[id number]] Extra Urine Toney Tube[[id number]] Please view results for these tests on the individual orders. URINALYSIS WITH REFLEX CULTURE AND MICROSCOPIC EXTRA URINE TONEY TUBE PH, BODY FLUID LACTATE DEHYDROGENASE, BODY FLUID Narrative: The following orders were created for panel order Lactate Dehydrogenase, Body Fluid. Procedure Abnormality Status --------- ------ Lactate Dehydrogenase, B...[[id number]] In process Please view results for these tests on the individual orders. GLUCOSE, BODY FLUID Narrative: The following orders were created for panel order Glucose, Body Fluid. Procedure Abnormality Status --------- ------ Glucose, Body Fluid[[id number]] In process Please view results for these tests on the individual orders. PROTEIN, TOTAL, BODY FLUID Narrative: The following orders were created for panel order Protein, Total, Body Fluid. Procedure Abnormality Status --------- ------ Protein, Total, Body Fluid[[id number]] In process Please view results for these tests on the individual orders. BODY FLUID CELL COUNT WITH DIFFERENTIAL Narrative: The following orders were created for panel order Body Fluid Cell Count With Differential. Procedure Abnormality Status --------- ------ Body Fluid Cell Count[[id number]] In process Body Fluid Differential[[id number]] In process Please view results for these tests on the individual orders. ALBUMIN, BODY FLUID Narrative: The following orders were created for panel order Albumin, Body Fluid. Procedure Abnormality Status --------- ------ Albumin, Body Fluid[[id number]] In process Please view results for these [...] Yohana Huang 10/04/2024 2:28 PM Dictation workstation: [id number] Procedures Medical Decision Making Patient is a 59-year-old male with a hx of cirrhosis who presents to the emergency department with a chief complaint of abdominal pain from [facility]. He reports increased abdominal pain that he describes as generalized, states that his abdomen is distended. Recently had a paracentesis performed at [facility] on September 29. Patient reports that [...] cirrhosis type (Multi) Sriram Oleary PA-C 10/04/241736 [facility] Work Phone: 1([phone]) 233-489603-03-2025 Emergency department Note* Sriram Oleary PA-C - [...] Abnormality Status --------- ------ Urinalysis with Reflex C...[[id number]] Extra Urine Toney Tube[[id number]] Please view results for these tests on the individual orders. URINALYSIS WITH REFLEX CULTURE AND MICROSCOPIC EXTRA URINE TONEY TUBE PH, BODY FLUID LACTATE DEHYDROGENASE, BODY FLUID Narrative: The following orders were created for panel order Lactate Dehydrogenase, Body Fluid. Procedure Abnormality Status --------- ------ Lactate Dehydrogenase, B...[[id number]] In process Please view results for these tests on the individual orders. GLUCOSE, BODY FLUID Narrative: The following orders were created for panel order Glucose, Body Fluid. Procedure Abnormality Status --------- ------ Glucose, Body Fluid[[id number]] In process Please view results for these tests on the individual orders. PROTEIN, TOTAL, BODY FLUID Narrative: The following orders were created for panel order Protein, Total, Body Fluid. Procedure Abnormality Status --------- ------ Protein, Total, Body Fluid[[id number]] In process Please view results for these tests on the individual orders. BODY FLUID CELL COUNT WITH DIFFERENTIAL Narrative: The following orders were created for panel order Body Fluid Cell Count With Differential. Procedure Abnormality Status --------- ------ Body Fluid Cell Count[[id number]] In process Body Fluid Differential[[id number]] In process Please view results for these tests on the individual orders. ALBUMIN, BODY FLUID Narrative: The following orders were created for panel order Albumin, Body Fluid. Procedure Abnormality Status --------- ------ Albumin, Body Fluid[[id number]] In process Please view results for these [...] Yohana Huang 10/04/2024 2:28 PM Dictation workstation: [id number] Procedures Medical Decision Making Patient is a 59-year-old male with a hx of cirrhosis who presents to the emergency department with a chief complaint of abdominal pain from [facility]. He reports increased abdominal pain that he describes as generalized, states that his abdomen is distended. Recently had a paracentesis performed at [facility] on September 29. Patient reports that [...] Sriram Oleary PA-C 10/04/241736 documented in this [facility] Work Phone: 1([phone]) [phone] Evaluation note* Diagnosis Onset Date Resolution Status [...] 2 :16pm Umbilical hernia acute January 2:16pm [facility] Work Phone: [phone]) [phone] Procedure note [facility] Medical Records Department [address] [place] [address] Operative Report 09/29/24 1048 MR#: [id number] Acct: [id number] Name: FRANKLIN WIGGINS Rep #:[id number] : 1965 59 From: Jasmine gusman CHORE TENDER CHORE TENDER-C PCP: Care Physician,No Primary Status :REG CLI Location: [place] Problems Associated Problem List Diagnoses (1) Abdominal ascites: Multi [facility] Radiology [place] Procedures: 14936 Paracentesis Operative Report (Standard) Operative Information Date of Procedure: 09/29/24 Pre-Operative Diagnosis: Abdominal ascites Post-Operative Diagnosis: Abdominal ascites Surgery/Procedure Performed: Ultrasound-guided paracentesis die cast engineer: No Type of Anesthesia: Local Procedure Start [...] the peritoneal cavity was accessed with a 5-Irish paracentesis needle/catheter system. The trocar was removed. [...] No Primary Care Physician; DIANE CALLAHAN~ Signed [facility]02-02-2025 Evaluation note* Diagnosis Onset Date [...] 6:06am Fall acute January 02, 2025 6:06am [facility] Work Phone: 1([phone]) 203-950002-02-2025 Evaluation note* Diagnosis Onset Date Resolution Status [...] 2:16pm Sepsis acute January 09, 2025 2:16pm [facility] Work Phone: [phone] Evaluation note* Diagnosis Onset Date Resolution Status [...] Abdominal ascites acute Februar y 2024 9:35am [facility] Work Phone: [phone] Evaluation note* Diagnosis Onset Date Resolution Status [...] Chronic back pain chronic October 032024 12:43am [facility] Work Phone: [phone] Evaluation note* Diagnosis Onset Date Resolution Status [...] 29 12:43am Chronic abdominal pain chronic [facility] 2024 12:43am Chronic back pain chronic October 032024 12:43am [facility] Work Phone: [phone] Evaluation note* Diagnosis Onset Date Resolution Status [...] 2024 12:43am Chronic abdominal pain chronic [facility] 2024 12:43am Chronic back pain chronic October [...] 4:28am Staghorn calculus acute November 032024 4:28am [facility] Work Phone: [phone] Evaluation note* Diagnosis Onset Date Resolution Status [...] infection) resolv ed November 28, 2024 4:51pm [facility] Work Phone: Discharge summary Author Herberth Carlson [facility] Note Date/Time November 21, 2024 4:1 6am [facility] Medical Records Department [address] [place] [address] Emergency Department Summary 11/21/24 MR#: [id number] Acct: [id number] Name: FRANKLIN WIGGINS Rep #:[id number] : [...] discontinue his lactulose. He was recently admitted [facility] for cirrhosis and other issues, he [...] toilet after multiple attempts over couple hours. [facility] Medical History Diarrhea Sepsis Acidosis, lactic Acute [...] (Auto) 68.7 Lymph % (Auto) 13.9 L Harford % (Auto) 9.2 Eos % (Auto) 7.2 [...] Sl Cldy Urine pH 6.0 Ur Specific Ardmore 1.015 Urine Protein 500 H Urine Glucose [...] process. Follow-up to resolution recommended. Reading Location: [facility] Management Discussion w/another healthcare provider: Hospitalist Discharge [...] Primary [Primary Care Provider] - Print Language: Finnish Disposition Disposition: Acute Care Hospital [facility] What to do if you have Problems For any increased pain, shortness of breath, bleeding, nausea or vomiting, chestpain, or any unexpected problems, contact your Primary Care Provider. Call [facility] ([phone]) or report to the closest Emergency Room. Call 911 if necessary. 11/21/24 0416 <Electronically signed by Herberth Carlson MD> Cosigner Signature (if applicable): CC: No Primary Care Physician ~ Signed [facility] Work Phone: Discharge summary Author Mina Blood [facility] Note Date/Time December 30, 2024 5:19a m [facility] Medical Records Department [address] [place] [address] Emergency Department Summary 12/30/24 MR#: [id number] Acct: [id number] Name: FRANKLIN WIGGINS Rep #:[id number] : [...] recent trauma prior to the pain beginning. [facility] Medical History Weakness Diarrhea Sepsis Acidosis, lactic [...] (Auto) 69.7 Lymph % (Auto) 14.0 L Harford % (Auto) 9.1 Eos % (Auto) 6.2 [...] Clarity Cloudy Urine pH 6.5 Ur Specific [place] 1.010 Urine Protein 100 H Urine Glucose [...] No evidence of acute disease. Reading Location: [facility] Chest x-ray as interpreted by the [...] you have any further concerns Print Language: Finnish Disposition Disposition: Home, Self Care What to do if you have Problems For any increased pain, shortness of breath, bleeding, nausea or vomiting, chestpain, or any unexpected problems, contact your Primary Care Provider. Call [facility] ([phone]) or report to the closest Emergency Room. Call 911 if necessary. 12/30/24 0519 <Electronically signed by Mina Blood DO> Cosigner Signature (if applicable): CC: YG Elias ~ Signed [facility] Work Phone: Discharge summary Author Roddy Reeves [facility] Note Date/Time January 02, 2025 6:00a m [facility] Medical Records Department [address] [place] [address] Emergency Department Summary 01/02/25 MR#: [id number] Acct: [id number] Name: FRANKLIN WIGGINS Rep #:[id number] : [...] was here recently and was sent home. [facility] Medical History Weakness Diarrhea Sepsis Acidosis, lactic [...] Patient following commands that he was at [facility] that wewere in the end of [...] (Auto) 68.0 Lymph % (Auto) 12.2 L Harford % (Auto) 11.9 H Eos % (Auto) [...] Clarity Turbid Urine pH 6.0 Ur Specific [place] 1.015 Urine Protein 100 H Urine Glucose [...] insufficiency fracture again noted, unchanged. Reading Location: [facility] Brain CT 01/02/25 03:55 IMPRESSION: No intracranial hemorrhage, mass effect or calvarial fracture. Moderate volume loss, atrophy again noted. Mild left maxillary sinus disease appears mildly decreased from the prior study. Reading Location: [facility] Cervical Spine CT 01/02/25 03:55 IMPRESSION: No fracture or malalignment. Multilevel spondylosis/discogenic change greatest at C5-6 Reading Location: [facility] Discharge Plan Triage Chief Complaint: Weakness [...] Care Provider: Josy Elias Referrals: Josy Elias, CHORE TENDER-C [Primary Care Provider] - Print Language: Finnish Disposition Disposition: Acute Care Hospital [facility] What to do if you have Problems For any increased pain, shortness of breath, bleeding, nausea or vomiting, chestpain, or any unexpected problems, contact your Primary Care Provider. Call [facility] ([phone]) or report to the closest Emergency Room. Call 911 if necessary. 01/02/25 0600 <Electronically signed by Roddy Reeves DO> Cosigner Signature (if applicable): CC: YG Elias ~ Signed [facility] Work Phone: Discharge summary Author Mina Blood [facility] Note Date/Time February 08, 2025 3:03a m [facility] Medical Records Department [address] [place] [address] Emergency Department Summary 02/08/25 MR#: [id number] Acct: [id number] Name: FRANKLIN WIGGINS Rep #:[id number] : [...] bouts of constipation fevers chills or dysuria. [facility] Medical History (Updated 02/08/25 @ 03:03 by [...] surgery as fat necrosis is a nonemergent vor-qzbd-tqtrayecwjv process. The patient will be given pain [...] 72.8 H Lymph % (Auto) 12.8 L Harford % (Auto) 8.1 Eos % (Auto) 5.4 [...] double-J stent in place. Anasarca. Reading Location: [place] [address] Discharge Plan Triage Chief Complaint: Abd Pain [...] Orders: Paracentesis with US (Routine) Facility: [facility] - Location: [facility] Ordered By: Dr. Mina Blood Primary Care [...] you have any further concerns. Print Language: Finnish Disposition Disposition: Home, Self Care What to do if you have Problems For any increased pain, shortness of breath, bleeding, nausea or vomiting, chestpain, or any unexpected problems, contact your Primary Care Provider. Call [facility] ([phone]) or report to the closest Emergency Room. Call 911 if necessary. 02/08/25 7857 <Electronically signed by Mina Blood DO> Cosigner Signature (if applicable): CC: Dr. Jerald Sherwood MD ~ Signed [facility] Work Phone: Evaluation note* Diagnosis Other ascites- Primary Abdominal pain, generalized Cirrhosis of liver with ascites, unspecified hepatic cirrhosis type (Multi) Peripheral edema Edema Coagulopathy (Multi) Other and unspecified coagulation defects Hyperbilirubinemia Disorders of bilirubin excretion documented in this encounter [facility] Work Phone: Evaluation note* Diagnosis Metabolic dysfunction-associated steatohepatitis (MASH)- Primary [facility] [place] [facility] Diagnosis Liver transplant candidate- Primary Metabolic dysfunction-associated steatohepatitis (MASH) [facility] Diagnosis Pre-transplant evaluation for liver transplant- Primary [facility] [place] [facility] Diagnosis Liver transplant candidate- Primary Pre-operative clearance Preoperative examination, unspecified documented in this encounter [facility] note* Diagnosis Screening for genitourinary condition Screening for other and unspecified genitourinary condition documented [facility] Author Buster Fuchs [facility] Note Date/Time January 02, 2025 6:44a m [facility] Medical Records Department [address] [place] [address] H&P Exam - Hospitalist 01/02/25 0556 MR#: [id number] Acct: [id number] Name: FRANKLIN WIGGINS Rep #:[id number] : 1965 59 From: Buster duarte MD PCP: GY Pena Status:ADM I N [facility] - General General Date [...] At that time he was transferred to [facility] 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 Was not considered to be a liver transplant candidate and was placed on anticoagulation. He has had a couple of readmissions for weakness and debility. [place] to possibly have aUTI given a staghorn [...] Heis receiving potassium infusion in the ER. [facility] Medical History Weakness Diarrhea Sepsis Acidosis, lactic [...] (Auto) 68.0, Lymph % (Auto) 12.2 L, [place] % (Auto) 11.9 H, Eos % (Auto) [...] insufficiency fracture again noted, unchanged. Reading Location: [facility] Brain CT 01/02/25 03:55 IMPRESSION: No intracranial hemorrhage, mass effect or calvarial fracture. Moderate volume loss, atrophy again noted. Mild left maxillary sinus disease appears mildly decreased from the prior study. Reading Location: [facility] Cervical Spine CT 01/02/25 03:55 IMPRESSION: No fracture or malalignment. Multilevel spondylosis/discogenic change greatest at C5-6 Reading Location: [facility] Assessment & Plan Assessment/Plan (1) Fall: [...] once verified Charges/Coding Visit Charges Inpatient E&M: 90328 Init Hosp L2 01/02/25 0644 <Electronically signed by Buster Fuchs MD> Cosigner Signature (if applicable): CC: YG Elias; Dr. Buster Fuchs MD~ Signed [facility] Work Phone: Hospital Discharge instructions* Attachments The following attachments cannot be sent through Care Everywhere. * Cirrhosis (Finnish) * Abdominal pain (Finnish) [facility] Work Phone: Hospital Discharge instructions [...] the ER should you have any further concernsW[facility] [place] Work Phone: Hospital Discharge instructionsAdditional Instructions Your [...] the ER should you have any further concerns.[facility] Work Phone: Hospital Discharge instructionsAdditional Instructions Thank you for trusting us with your care today! Please take Tylenol (2 pills, 650 mg), ibuprofen (2 pills, 400 mg) every 6 hours as needed for pain and fever control. Please return to the emergency department if your symptoms change or worsen. Please follow with your primary care physician for further outpatient evaluation and management.[facility] Work Phone: Reason for referral (narrative)No reason for referral information availableWSelect [facility] [place] Work Phone: Summary Purpose Family History No [...] Will No August 21 2:51pm Power of Meat Cutting Block Repairer No August 21, 2024 2:51pm Living Will No August 30 12:39am Power of Meat Cutting Block Repairer No August 30, 2024 12:39am Living Will No September 05 4:42am Power of Meat Cutting Block Repairer No September 05, 2024 4:42am Advance Directive Response Recorded Date/ Time Living Will No August 21 2:51pm Do you have a Healthcare Power of Meat Cutting Block Repairer? No August 21, 2024 2:51pm Living Will No August 30 12:39am Do you have a Healthcare Power of Meat Cutting Block Repairer? No August 30, 2024 12:39am Living Will No September 05 4:42am Do you have a Healthcare Power of Meat Cutting Block Repairer? No September 05, 2024 4:42am Living Will No October 28, 2024 5:24pm Do you have a Healthcare Power of Meat Cutting Block Repairer? No October 28, 2024 5:24pm Advance Directive Response Recorded Date/ Time Living Will No August 21 2:51pm Do you have a Healthcare Power of Meat Cutting Block Repairer? No August 21, 2024 2:51pm Living Will No August 30 12:39am Do you have a Healthcare Power of Meat Cutting Block Repairer? No August 30, 2024 12:39am Living Will No September 05 4:42am Do you have a Healthcare Power of Meat Cutting Block Repairer? No September 05, 2024 4:42am Living Will No October 29, 2024 1:46am Do you have a Healthcare Power of Meat Cutting Block Repairer? No October 29, 2024 1:46am Date Activated Date Inactivated Comments 11/11/2024 7:22 AM Question Answer Comments Full Code Order Discussed With: Patient Date Activated Date Inactivated Comments 11/11/2024 7:22 AM Advance Directive Response Recorded Date/ Time Living Will No August 21 2:51pm Do you have a Healthcare Power of Meat Cutting Block Repairer? No August 21, 2024 2:51pm Living Will No August 30 12:39am Do you have a Healthcare Power of Meat Cutting Block Repairer? No August 30, 2024 12:39am Living Will No September 05 4:42am Do you have a Healthcare Power of Meat Cutting Block Repairer? No September 05, 2024 4:42am Living Will No October 29, 2024 1:46am Do you have a Healthcare Power of Meat Cutting Block Repairer? No October 29, 2024 1:46am Living Will Yes November 21, 2024 1:32am Do you have a Healthcare Power of Meat Cutting Block Repairer? Yes November 21, 2024 1:32am Name of Medical Power of Meat Cutting Block Repairer anne Hernandez November 21, 2024 1:32am Advance Directive Response Recorded Date/ Time Living Will No August 21 2:51pm Do you have a Healthcare Power of Meat Cutting Block Repairer? No August 21, 2024 2:51pm Living Will No August 30 12:39am Do you have a Healthcare Power of Meat Cutting Block Repairer? No August 30, 2024 12:39am Living Will No September 05 4:42am Do you have a Healthcare Power of Meat Cutting Block Repairer? No September 05, 2024 4:42am Living Will No October 29, 2024 1:46am Do you have a Healthcare Power of Meat Cutting Block Repairer? No October 29, 2024 1:46am Living Will Yes November 21, 2024 5:32am Do you have a Healthcare Power of Meat Cutting Block Repairer? Yes November 21, 2024 5:32am Name of Medical Power of Meat Cutting Block Repairer anne Hernandez November 21, 2024 5:32am Do you have a Healthcare Power of Meat Cutting Block Repairer? No November 28, 2024 5:49pm Advance Directive Response Recorded Date/ Time Living Will No August 30 12:39am Do you have a Healthcare Power of Meat Cutting Block Repairer? No August 30, 2024 12:39am Living Will No September 05 4:42am Do you have a Healthcare Power of Meat Cutting Block Repairer? No September 05, 2024 4:42am Living Will No October 29, 2024 1:46am Do you have a Healthcare Power of Meat Cutting Block Repairer? No October 29, 2024 1:46am Living Will Yes November 21, 2024 5:32am Do you have a Healthcare Power of Meat Cutting Block Repairer? Yes November 21, 2024 5:32am Name of Medical Power of Meat Cutting Block Repairer anne Hernandez November 21, 2024 5:32am Do you have a Healthcare Power of Meat Cutting Block Repairer? No November 28, 2024 5:49pm Advance Directive Response Recorded Date/ Time Living Will No August 30 12:39am Do you have a Healthcare Power of Meat Cutting Block Repairer? No August 30, 2024 12:39am Living Will No September 05 4:42am Do you have a Healthcare Power of Meat Cutting Block Repairer? No September 05, 2024 4:42am Living Will No October 29, 2024 1:46am Do you have a Healthcare Power of Meat Cutting Block Repairer? No October 29, 2024 1:46am Living Will Yes November 21, 2024 5:32am Do you have a Healthcare Power of Meat Cutting Block Repairer? Yes November 21, 2024 5:32am Name of Medical Power of Meat Cutting Block Repairer anne Hernandez November 21, 2024 5:32am Do you have a Healthcare Power of Meat Cutting Block Repairer? No November 28, 2024 5:49pm Do you have a Healthcare Power of Meat Cutting Block Repairer? No December 26, 2024 10:02am Advance Directive Response Recorded Date/ Time Living Will No August 30 12:39am Do you have a Healthcare Power of Meat Cutting Block Repairer? No August 30, 2024 12:39am Living Will No September 05 4:42am Do you have a Healthcare Power of Meat Cutting Block Repairer? No September 05, 2024 4:42am Living Will No October 29, 2024 1:46am Do you have a Healthcare Power of Meat Cutting Block Repairer? No October 29, 2024 1:46am Living Will Yes November 21, 2024 5:32am Do you have a Healthcare Power of Meat Cutting Block Repairer? Yes November 21, 2024 5:32am Name of Medical Power of Meat Cutting Block Repairer anne Hernandez November 21, 2024 5:32am Do you have a Healthcare Power of Meat Cutting Block Repairer? No November 28, 2024 5:49pm Do you have a Healthcare Power of Meat Cutting Block Repairer? No December 26, 2024 10:02am Do you have a Healthcare Power of Meat Cutting Block Repairer? No December 30, 2024 1:06am Advance Directive Response Recorded Date/ Time Do you have a Healthcare Power of Meat Cutting Block Repairer? No January 02, 2025 2:59am Living Will No September 05 4:42am Do you have a Healthcare Power of Meat Cutting Block Repairer? No September 05, 2024 4:42am Living Will No October 29, 2024 1:46am Do you have a Healthcare Power of Meat Cutting Block Repairer? No October 29, 2024 1:46am Living Will Yes November 21, 2024 5:32am Do you have a Healthcare Power of Meat Cutting Block Repairer? Yes November 21, 2024 5:32am Name of Medical Power of Meat Cutting Block Repairer anne Hernandez November 21, 2024 5:32am Do you have a Healthcare Power of Meat Cutting Block Repairer? No November 28, 2024 5:49pm Do you have a Healthcare Power of Meat Cutting Block Repairer? No December 26, 2024 10:02am Do you have a Healthcare Power of Meat Cutting Block Repairer? No December 30, 2024 1:06am Advance Directive Response Recorded Date/ Time Do you have a Healthcare Power of Meat Cutting Block Repairer? No January 02, 2025 8:14am Living Will No September 05 4:42am Do you have a Healthcare Power of Meat Cutting Block Repairer? No September 05, 2024 4:42am Living Will No October 29, 2024 1:46am Do you have a Healthcare Power of Meat Cutting Block Repairer? No October 29, 2024 1:46am Living Will Yes November 21, 2024 5:32am Do you have a Healthcare Power of Meat Cutting Block Repairer? Yes November 21, 2024 5:32am Name of Medical Power of Meat Cutting Block Repairer anne Hernandez November 21, 2024 5:32am Do you have a Healthcare Power of Meat Cutting Block Repairer? No November 28, 2024 5:49pm Do you have a Healthcare Power of Meat Cutting Block Repairer? No December 26, 2024 10:02am Do you have a Healthcare Power of Meat Cutting Block Repairer? No December 30, 2024 1:06am Advance Directive Response Recorded Date/ Time Do you have a Healthcare Power of Meat Cutting Block Repairer? No January 02, 2025 8:14am Living Will No September 05 4:42am Do you have a Healthcare Power of Meat Cutting Block Repairer? No September 05, 2024 4:42am Living Will No October 29, 2024 1:46am Do you have a Healthcare Power of Meat Cutting Block Repairer? No October 29, 2024 1:46am Living Will Yes November 21, 2024 5:32am Do you have a Healthcare Power of Meat Cutting Block Repairer? Yes November 21, 2024 5:32am Name of Medical Power of Meat Cutting Block Repairer anne Hernandez November 21, 2024 5:32am Do you have a Healthcare Power of Meat Cutting Block Repairer? No November 28, 2024 5:49pm Do you have a Healthcare Power of Meat Cutting Block Repairer? No December 26, 2024 10:02am Do you have a Healthcare Power of Meat Cutting Block Repairer? No December 30, 2024 1:06am Do you have a Healthcare Power of Meat Cutting Block Repairer? No January 09, 2025 10:10am Advance Directive Response Recorded Date/ Time Do you have a Healthcare Power of Meat Cutting Block Repairer? No January 02, 2025 8:14am Living Will No October 29, 2024 1:46am Do you have a Healthcare Power of Meat Cutting Block Repairer? No October 29, 2024 1:46am Living Will Yes November 21, 2024 5:32am Do you have a Healthcare Power of Meat Cutting Block Repairer? Yes November 21, 2024 5:32am Name of Medical Power of Meat Cutting Block Repairer anne Hernandez November 21, 2024 5:32am Do you have a Healthcare Power of Meat Cutting Block Repairer? No November 28, 2024 5:49pm Do you have a Healthcare Power of Meat Cutting Block Repairer? No December 26, 2024 10:02am Do you have a Healthcare Power of Meat Cutting Block Repairer? No December 30, 2024 1:06am Do you have a Healthcare Power of Meat Cutting Block Repairer? No January 09, 2025 3:31pm Advance Directive Response Recorded Date/ Time Do you have a Healthcare Power of Meat Cutting Block Repairer? No January 02, 2025 8:14am Do you have a Healthcare Power of Meat Cutting Block Repairer? No January 28, 2025 3:02am Living Will No October 29, 2024 1:46am Do you have a Healthcare Power of Meat Cutting Block Repairer? No October 29, 2024 1:46am Living Will Yes November 21, 2024 5:32am Do you have a Healthcare Power of Meat Cutting Block Repairer? Yes November 21, 2024 5:32am Name of Medical Power of Meat Cutting Block Repairer anne Hernandez November 21, 2024 5:32am Do you have a Healthcare Power of Meat Cutting Block Repairer? No November 28, 2024 5:49pm Do you have a Healthcare Power of Meat Cutting Block Repairer? No December 26, 2024 10:02am Do you have a Healthcare Power of Meat Cutting Block Repairer? No December 30, 2024 1:06am Do you have a Healthcare Power of Meat Cutting Block Repairer? No January 09, 2025 3:31pm Advance Directive Response Recorded Date/ Time Do you have a Healthcare Power of Meat Cutting Block Repairer? No January 02, 2025 8:14am Do you have a Healthcare Power of Meat Cutting Block Repairer? No January 28, 2025 3:02am Living Will No October 29, 2024 1:46am Do you have a Healthcare Power of Meat Cutting Block Repairer? No October 29, 2024 1:46am Living Will Yes November 21, 2024 5:32am Do you have a Healthcare Power of Meat Cutting Block Repairer? Yes November 21, 2024 5:32am Name of Medical Power of Meat Cutting Block Repairer anne Hernandez November 21, 2024 5:32am Do you have a Healthcare Power of Meat Cutting Block Repairer? No November 28, 2024 5:49pm Do you have a Healthcare Power of Meat Cutting Block Repairer? No December 26, 2024 10:02am Do you have a Healthcare Power of Meat Cutting Block Repairer? No December 30, 2024 1:06am Do you have a Healthcare Power of Meat Cutting Block Repairer? No January 09, 2025 3:31pm Do you have a Healthcare Power of Meat Cutting Block Repairer? No February 07, 2025 10:20pm Advance Directive Response Recorded Date/ Time Do you have a Healthcare Power of Meat Cutting Block Repairer? No January 02, 2025 8:14am Do you have a Healthcare Power of Meat Cutting Block Repairer? No January 28, 2025 3:02am Living Will No October 29, 2024 1:46am Do you have a Healthcare Power of Meat Cutting Block Repairer? No October 29, 2024 1:46am Living Will Yes November 21, 2024 5:32am Do you have a Healthcare Power of Meat Cutting Block Repairer? Yes November 21, 2024 5:32am Name of Medical Power of Meat Cutting Block Repairer anne Hernandez November 21, 2024 5:32am Do you have a Healthcare Power of Meat Cutting Block Repairer? No November 28, 2024 5:49pm Do you have a Healthcare Power of Meat Cutting Block Repairer? No December 26, 2024 10:02am Do you have a Healthcare Power of Meat Cutting Block Repairer? No December 30, 2024 1:06am Do you have a Healthcare Power of Meat Cutting Block Repairer? No January 09, 2025 3:31pm Do you have a Healthcare Power of Meat Cutting Block Repairer? No February 07, 2025 10:20pm Do you have a Healthcare Power of Meat Cutting Block Repairer? No February 13, 2025 4:40pm Advance Directive Response Recorded Date/ Time Do you have a Healthcare Power of Meat Cutting Block Repairer? No January 02, 2025 8:14am Do you have a Healthcare Power of Meat Cutting Block Repairer? No January 28, 2025 3:02am Living Will No October 29, 2024 1:46am Do you have a Healthcare Power of Meat Cutting Block Repairer? No October 29, 2024 1:46am Living Will Yes November 21, 2024 5:32am Do you have a Healthcare Power of Meat Cutting Block Repairer? Yes November 21, 2024 5:32am Name of Medical Power of Meat Cutting Block Repairer anne Hernandez November 21, 2024 5:32am Do you have a Healthcare Power of Meat Cutting Block Repairer? No November 28, 2024 5:49pm Do you have a Healthcare Power of Meat Cutting Block Repairer? No December 26, 2024 10:02am Do you have a Healthcare Power of Meat Cutting Block Repairer? No December 30, 2024 1:06am Do you have a Healthcare Power of Meat Cutting Block Repairer? No January 09, 2025 3:31pm Do you have a Healthcare Power of Meat Cutting Block Repairer? No February 07, 2025 10:20pm Do you have a Healthcare Power of Meat Cutting Block Repairer? No February 13, 2025 4:40pm Do you have a Healthcare Power of Meat Cutting Block Repairer? No February 16, 2025 6:30pm Chief Complaint [...] SEPSIS, UTI, DIARRHEA & ABDOMINAL PAIN [facility] 2024 12:43am Reason for Visit Admit Date [...] 10:48am SEPSIS, UTI, DIARRHEA & ABDOMINAL PAIN [facility] 2024 12:43am SEPSIS, UTI, DIARRHEA & ABDOMINAL [...] History of uric acid staghorn calculus [facility] 2024 12:43am Hyponatremia October 29, 2024 [...] 8:36am SEPSIS, UTI, DIARRHEA & ABDOMINAL PAIN [facility] 2024 11:28am SEPSIS, UTI, DIARRHEA & ABDOMINAL [...] Thrombus Procedures Evaluate and treat HOSP MAIN [id number] [place] [address] Phone: tel: Referral ID Status Reason Start Date Expiration Date Visits Re quested Visits Authorized [id number] 1 1 Reason Comments Abdominal Pain Patient [...] 2024 End: November 11, 2024 Yue Delgadillo CHORE TENDER, CHORE TENDER-C Other Provider Active St art: October 29, [...] Active Star t: October 30, 2024 Dr. Yougn Richardson MD Other Provider Active Sta rt: [...] Active Start: November 03, 2024 Dr. Alber Dnun MD Emergency Provider Active S tart: November [...] Active Start: November 07, 2024 Dr. Hill Aucña MD Other Provider Active Star t: November [...] Active Start: November 08, 2024 Dr. Hill Crao DO Other Provider Active Start: November 08, [...] Sta rt: November 10, 2024 Yue Delgadillo CHORE TENDER, CHORE TENDER-C Other Provider Active St art: November 10, 2024 Team Status: Active Member Role Status Dates No Primary Care Physician Primary Care Provider Active Start: November 21, 2024 Dr. Herberth Carlson MD Emergency Provider Active Start: November 21, 2024 Dr. Jae Ash , Admit Provider Active Start: November 21, 2024 Dr. Jae Ash DO Attending Provider Active Start: November 21, 2024 Dr. Jae Ahs DO Other Provider Active Start: November 21, [...] Inactive Member Role Status Dates Josy Elias CHORE TENDER-C Primary Care Provider Active Start: December 07, 2024 End: December 07, 2024 Josy Elias NP-C Attending Provider Active Start: December 07, 2024 End: December 07, 2024 Team Status: Inactive Member Role Status Dates Josy Elias CHORE TENDER-C Primary Care Provider Active Start: December 15, 2024 End: December 15, 2024 Josy Elias CHORE TENDER-C Attending Provider Active Start: December 15, 2024 End: December 15, 2024 Josy Elias CHORE TENDER-C Referring Provider Active Start: December 15, 2024 End: December 15, 2024 Team Status: Inactive Member Role Status Dates Josy Elias CHORE TENDER-C Primary Care Provider Active Start: December 26, 2024 End: December 26, 2024 Dr. Boone Carvajal DO Attending Provider Active Start: December 26, 2024 End: December 26, 2024 Dr. Boone Carvajal DO Emergency Provider Active Start: December 26, 2024 End: December 26, 2024 Team Status: Inactive Member Role Status Dates Josy Elias CHORE TENDER-C Primary Care Provider Active Start: December 30, 2024 End: December 30, 2024 Dr. Mina Blood DO Attending Provider Active Start: December 30, 2024 End: December 30, 2024 Dr. Mina Blood DO Emergency Provider Active Start: December 30, 2024 End: December 30, 2024 Team Status: Inactive Member Role Status Dates Josy Elias CHORE TENDER-C Primary Care Provider Active Start: January 02, [...] Active Member Role Status Dates Josy Elias CHORE TENDER-C Primary Care Provider Active Start: January 03, [...] Active Member Role Status Dates Josy Elias CHORE TENDER-C Primary Care Provider Active Start: January 04, [...] Active Member Role Status Dates Josy Elias CHORE TENDER-C Primary Care Provider Active Start: January 05, [...] Inactive Member Role Status Dates Josy Elias CHORE TENDER-C Primary Care Provider Active Start: January 09, [...] Active Member Role Status Dates Josy Elias CHORE TENDER-C Primary Care Provider Active Start: January 10, [...] Active Member Role Status Dates Josy Elias CHORE TENDER-C Primary Care Provider Active Start: January 11, [...] Active Member Role Status Dates Josy Elias CHORE TENDER-C Primary Care Provider Active Start: January 11, [...] Active Member Role Status Dates Josy Elias CHORE TENDER-C Primary Care Provider Active Start: January 12, 2025 Dr. Breann Mendez DO Emergency Provider Active S tart: January 12, 2025 Dr. Yaritza Leo , Admit Provider Active Start : January 12, 2025 Dr. Yaritza eLo DO Other Provider Active Start : January 12, 2025 Dr. Cielo Tovar MD Attending Provider Active Start: January 12, 2025 Dr. Cielo Tovar MD Other Provider Active St art: January 12, 2025 Dr. Jefferson Malave MD Other Provider Active St art: January 12, 2025 Team Status: Active Member Role Status Dates Josy Elias CHORE TENDER-C Primary Care Provider Active Start: January 13, [...] Active Member Role Status Dates Josy Elias CHORE TENDER-C Primary Care Provider Active Start: January 15, [...] S tart: January 17, 2025 Dr. Yaritza eLo DO Admit Provider Active Start : January [...] Member Role Status Dates Josy Tannhof , CHORE TENDER-C Primary Care Provider Active Start: January 18, [...] Active Member Role Status Dates Josy Elias CHORE TENDER-C Primary Care Provider Active Start: January 19, [...] Active Start : August 31, 2024 Dr. iWll Lobo MD Other Provider Active Start: August [...] 2024 MINDY CONTRERAS Attending Provider Active Start: [facility]2024 End: September 29, 2024 MINDY CONTRERAS Referring Provider Active Start: 2024 End: September 29, 2024 Team Status: Active Member Role Status Dates No Primary Care Physician Primary Care Provider Active Start: September 29, 2024 DIANE, BILLKarma Referring Provider Active Start: 2024 DIANE BILLKarma Other Provider Active Start: 2024 Jasmine Morocho CHORE TENDER, CHORE TENDER-C Attending Provider Active Start: September 29, 2024 Transit Bus Driver Relationship Specialty Start Date End Date Maurice Rincon MD [address] [place] [id number] PCP - General Internal Medicine 09/21/24 Team Status: Active Member Role Status Dates No Primary Care Physician Primary Care Provider Active Team Status: Active Member Role Status Dates No Primary Care Physician Primary Care Provider Active Start: October 29, 2024 Dr. Alber Dnun MD Emergency Provider Active S tart: October [...] Inactive Member Role Status Dates Josy Elias CHORE TENDER-C Primary Care Provider Active Start: December 26, 2024 End: December 26, 2024 Dr. Boone Carvajal , DO Emergency Provider Active Start: December 26, 2024 End: December 26, 2024 Team Status: Inactive Member Role Status Dates Josy Elias CHORE TENDER-C Primary Care Provider Active Start: December 30, 2024 End: December 30, 2024 Dr. Mina Blood , DO Emergency Provider Active Start: December 30, 2024 End: December 30, 2024 Team Status: Active Member Role Status Dates Josy Elias CHORE TENDER-C Primary Care Provider Active Start: January 02, 2025 Dr. Roddy Reeves DO Emergency Provider Active Start: January 02, 2025 Dr. Buster Fuchs MD Admit Provider Active Start: January 02, 2025 Dr. Buster Fuchs MD Attending Provider Active Start: January 02, 2025 Dr. Buster Fuchs MD Other Provider Active Start: January 02, 2025 Team Status: Active Member Role Status Dates Josy Elias CHORE TENDER-C Primary Care Provider Active Start: January 09, 2025 Dr. Breann Mendez DO Emergency Provider Active S tart: January 09, 2025 Dr. Yaritza Leo DO Admit Provider Active Start : January 09, 2025 Dr. Yaritza Leo , Attending Provider Active S tart: January 09, 2025 Team Status: Active Member Role Status Dates Josy Elias CHORE TENDER-C Primary Care Provider Active Start: January 11, [...] 2024 End: November 11, 2024 Yue Delgadillo CHORE TENDER, CHORE TENDER-C Other Provider Active St art: October 29, [...] Sta rt: November 10, 2024 Yue Delgadillo CHORE TENDER, CHORE TENDER-C Other Provider Active St art: November 10, [...] 23, 2024 End: November 25, 2024 Dr. Jea Ash , Admit Provider Active Start: November [...] Member Role/Relationship Status Dates Josydominique Elias , CHORE TENDER-C Primary Care Provider Active Start: December 07, 2024 End: December 07, 2024 Josydominique Elias , CHORE TENDER-C Attending Provider Active Start: December 07, 2024 End: December 07, 2024 Team Status: Inactive Member Role/Relationship Status Dates Josydominique Baumannhof , CHORE TENDER-C Primary Care Provider Active Start: December 15, 2024 End: December 15, 2024 Josydominique Elias , CHORE TENDER-C Attending Provider Active Start: December 15, 2024 End: December 15, 2024 Josydominique Baumannhoantoinette , CHORE TENDER-C Referring Provider Active Start: December 15, 2024 End: December 15, 2024 Team Status: Inactive Member Role/Relationship Status Dates Josydominique Elias , CHORE TENDER-C Primary Care Provider Active Start: December 26, 2024 End: December 26, 2024 Dr. Boone Carvajal , Attending Provider Active Start: December 26, 2024 End: December 26, 2024 Dr. Boone Carvajal , Emergency Provider Active Start: December 26, 2024 End: December 26, 2024 Team Status: Inactive Member Role/Relationship Status Dates Josydominique Baumannhoantoinette , CHORE TENDER-C Primary Care Provider Active Start: December 30, 2024 End: December 30, 2024 Dr. Mina Blood DO Attending Provider Active Start: December 30, 2024 End: December 30, 2024 Dr. Mina Blood , Emergency Provider Active Start: December 30, 2024 End: December 30, 2024 Team Status: Inactive Member Role/Relationship Status Dates Josy Elias CHORE TENDER-C Primary Care Provider Active Start: January 02, [...] Active Member Role/Relationship Status Dates Josy Elias CHORE TENDER-C Primary Care Provider Active Start: January 03, [...] Active Member Role/Relationship Status Dates Josy Elias CHORE TENDER-C Primary Care Provider Active Start: January 04, [...] Active Member Role/Relationship Status Dates Josy Elias CHORE TENDER-C Primary Care Provider Active Start: January 05, [...] St art: January 10, 2025 Dr. Yury Cansa MD Other Provider Active S tart: January [...] Member Role/Relationship Status Dates Josy Tannhof , CHORE TENDER-C Primary Care Provider Active Start: January 11, [...] Active Member Role/Relationship Status Dates Josy Elias CHORE TENDER-C Primary Care Provider Active Start: January 11, [...] Active Member Role/Relationship Status Dates Josy Elias CHORE TENDER-C Primary Care Provider Active Start: January 11, [...] Active Member Role/Relationship Status Dates Josy Elias CHORE TENDER-C Primary Care Provider Active Start: January 12, [...] Active Member Role/Relationship Status Dates Josy Elias CHORE TENDER-C Primary Care Provider Active Start: January 13, [...] Active Member Role/Relationship Status Dates Josy Elias CHORE TENDER-C Primary Care Provider Active Start: January 15, [...] Star t: January 31, 2025 Dr. Boone Izqiuerdo DO Other Provider Active Star t: January [...] section and content) DATE CREATED AUTHOR 10/10/2024 [facility] DATE CREATED AUTHOR AUTHOR'S ORGANIZ ATION 12/13/2024 [facility] DATE CREATED AUTHOR AUTHOR'S ORGANIZ ATION 02/16/2025 [facility] Source Comments (unrecognize d section and [...] BE BASED ON THE PRIMARY CLINICAL RECORDS. [facility]. provides no warranty or guarantee of the accuracy or completeness of information in this document.
[2025-02-18 05:07] LABS: HEPATITIS B SURFACE AG Negative (Negative); Hep C Antibodies Non Reactive (Non Reactive)
== END | disposition home or self-care (01) ==
LOC: MFPLAB 14:10
PROVIDERS: PCP Family Medicine; Referring Provider Family Medicine; Visit Provider Family Medicine
DX: K76.9 Liver disease, unspecified (principal)
CPT/HCPCS: 36415; 80053; 80074; 82140; 85025

== ENCOUNTER 2025-02-25 11:35 | Observation (INO) | payer MEDICAID, SELFPAY ==
[2025-02-25] VITALS (7 sets, daily range): BP systolic 101–129; BP diastolic 56–81; PULSE 69–94; RESP 16–20; TEMP 36.3–36.9; O2SAT 96–100; BMI 31.9
--- NOTE | 2025-02-25 12:00 | EDS_ITS ---
HPI HPI - GI History of Present Illness Chief Complaint: Alt LOC [facility] Medical History VRE (vancomycin resistant enterococcus) culture positive Spinal stenosis, lumbar region with neurogenic claudication Hepatic encephalopathy Umbilical hernia Chronic hyponatremia Weakness Diarrhea Sepsis Acidosis, lactic Acute hypotension Acute UTI Chronic hypotension Obesity (BMI 30-39.9) Chronic back pain ISABEL (acute kidney injury) Hypotension Hyperbilirubinemia Liver cirrhosis secondary to HARRIS (nonalcoholic steatohepatitis) HLD (hyperlipidemia) HTN (hypertension) Thrombocytopenia Chronic anemia Former tobacco use Diabetes mellitus, type 2 ABBY on CPAP Back pain Home Medications ?Medication ?Instructions ?Recorded ?Last Taken ?Type rifaximin 550 mg tablet (Xifaxan) 550 mg PO BID diarrh ea #60 tabs 09/02/24 02/15/25 Rx acetaminophen 500 mg tablet 1,000 mg PO Q8 PRN fever o r pain 10/28/24 Unknown History calcium 500 mg (as 1 tab PO DAILY supplement 02/15/25 History carbonate)-vitamin D3 5 mcg (200 unit) tablet (Oyster Shell Calcium-Vitamin D3) folic acid 1 mg tablet 1 mg PO DAILY supplement 02/15/25 History atorvastatin 40 mg tablet 40 mg PO DAILY cholesterol 0 11/21/24 02/15/25 History magnesium oxide 400 mg (241.3 mg 400 mg PO DAILY suppl ement 11/21/24 02/15/25 History magnesium) tablet metformin 500 mg tablet,extended 500 mg PO QPM diabete s 11/21/24 02/15/25 History release 24 hr sodium bicarbonate 650 mg tablet 650 mg PO BID supplem ent 11/21/24 02/15/25 Hist ory thiamine HCl (vitamin B1) 100 mg 100 mg PO DAILY suppl ement 11/21/24 02/15/25 History tablet zinc sulfate 50 mg zinc (220 mg) 50 mg PO DAILY supple ment 11/21/24 02/15/25 History tablet ascorbic acid (vitamin C) 500 mg 500 mg PO BID vitamin #60 tabs 11/25/24 02/15/25 Rx tablet cyclobenzaprine 10 mg tablet 10 mg PO QHS muscle relax er 01/02/25 02/15/25 History ferrous sulfate 325 mg (65 mg 325 mg PO QODAY suppleme nt 01/02/25 02/15/25 History iron) tablet (FeroSul) insulin lispro 100 unit/mL 10 unit (0.1 mL) subcut TID AC #0 mL 01/05/25 02/15/25 Rx subcutaneous pen (Humalog KwikPen (U-100) Insulin) insulin glargine-yfgn 100 unit/mL 20 unit (0.2 mL) sub cut QHS #15 mL 01/31/25 02/15/25 Rx (3 mL) subcutaneous pen lactulose 10 gram/15 mL oral 10 g (15 mL) PO TID #3,00 0 mL 01/31/25 Unknown Rx solution pen needle, diabetic 31 gauge x #1,200 ea 01/31/25 Unk nown Rx 12/17 (Pen Needle) carvedilol 3.125 mg tablet 3.125 mg PO BID 1 month #60 tabs 02/17/25 Unknown Rx furosemide 40 mg tablet 40 mg PO DAILY 30 days #30 t abs 02/17/25 Unknown Rx spironolactone 100 mg tablet 150 mg (1.5 x 100 mg) PO DAILY 1 02/17/25 02/15/25 Rx month #30 tabs Allergy/AdvReac Type Severity Reaction Status Date / Time No Known Allergies Allergy Verified 02/16/25 17:20 Family History Mother Heart disease Hypertension CAD (coronary artery disease) Myocardial infarction Father Hypertension Heart disease Heart failure Surgical History History of tonsillectomy and adenoidectomy Social History household members: significant other Smoking Status: Former smoker how long ago did patient quit smoking: Quit ~ 3-4 months prior (fall 2023), smoked 1.5 ppd since teen until quit. alcohol intake: never substance use type: does not use EXAM Physical Exam Const Vital Signs: 02/25/25 11:34 02/25/25 11:36 Temperature 98.5 F 98.5 F Temperature Source Oral Oral Pulse Rate 72 72 Respiratory Rate 16 16 Blood Pressure 119/76 119/76 Blood Pressure Mean 90 90 Pulse Ox 97 98 Oxygen Delivery Method Room Air Room Air Positive well nourished and well developed General Appearance ED: well developed and NAD HEENT Reports moist mucous membranes normocephalic and atraumatic Eyes PERRL and EOMs intact bilaterally General Eye ED: Yes scleral icterus Neck full ROM and supple Resp normal respiratory effort and clear to auscultation bilaterally Cardio regular rate, regular rhythm and no murmurs GI GI Narrative: Distended. Soft reducible hernia umbilical. Diffuse mild tenderness more lower than upper, and tenderness with percussion, some pain with rebound. Auscultation: normoactive bowel sounds Palpation: soft Back/Spine no CVA tenderness General Back: other FROM Extremity normal to inspection General Extremety ED: Yes edema; Negative for pulses abnormal or tenderness General Extremity: edema bilateral lower extremity Details: mild; Negative for pulses abnormal Neuro CN's II-XII intact bilaterally and no sensory deficits noted Neuro Narrative: No focal lateralizing deficits Sensorium / Orientation: awake, alert, orientation impaired and confused Motor Exam: general weakness Skin no rashes or lesions noted and no wounds General Skin Exam: jaundice MDM MDM MDM Narrative Medical decision making narrative: Labs confirm hepatic encephalopathy and elevated bilirubin which is chronic for him, he was given a dose of lactulose here, and I reviewed his old records. He recently had a CT of the abdomen/pelvis, it was unremarkable except for ascites, I do not think he needs to have that repeated right now, same with his head. However, I looked back and he has never had a diagnostic paracentesis, and with the rebound signs here complaining of pain my concern is that he could have spontaneous bacterial peritonitis. Therefore I did a paracentesis to send fluid, I filled all the syringes that I had in order to pull fluid off but he does not have a ton of ascites right now and this was done more for diagnostic purposes. It was sent to the lab for culture and cell count and immediately after the procedure ordered/gave Rocephin to treat empirically. Discussed with hospitalist for admission. Lab Data Attestation: I reviewed the patient's lab results. Labs: Laboratory Results - last 24 hr 02/25/25 13:08 WBC 9.2 RBC 3.09 L Hgb 9.4 L Hct 27.9 L MCV 90.3 MCH 30.4 MCHC 33.7 RDW Std Deviation 69.0 H RDW Coeff of Francis 21.6 H Plt Count 160 MPV 12.5 H Immature Gran % (Auto) 0.400 Neut % (Auto) 61.8 Lymph % (Auto) 18.5 L Carroll % (Auto) 12.7 H Eos % (Auto) 5.8 H Baso % (Auto) 0.8 Absolute Neuts (auto) 5.7 Absolute Lymphs (auto) 1.69 Nucleated RBC % 0 Anisocytosis 1+ Sodium 131 L Potassium 3.7 Chloride 102 Carbon Dioxide 17.5 L Anion Gap 12 BUN 10 Creatinine 1.07 Estim Creat Clear Calc 86.96 Est GFR (MDRD) Non-Af 80 BUN/Creatinine Ratio 8.9 L Glucose 225 H Calcium 8.1 Total Bilirubin 4.99 H AST 97 H ALT 51 H Alkaline Phosphatase 249 H Ammonia 127.0 H Total Protein 5.9 Albumin 2.0 L Globulin 3.9 Albumin/Globulin Ratio 0.5 L Lipase 64 Management Discussion w/another healthcare provider: Hospitalist Procedures Other Procedures Procedure(s): Paracentesis by ED MD: emergent procedure for diagnostics on fluid to evaluate for spontaneous bacterial peritonitis, consent implied this patient is encephalopathic and no one is here with him. Prepped and draped in a sterile manner, after ultrasounding his abdomen and looking for the best pocket of free fluid which at the time of the procedure was in the right lower quadrant. Locally anesthetized with a cc of plain 1% lidocaine. With medical office assistant instructor, I ultrasounded the area while introducing paracentesis needle via Seldinger technique into the area watching the needle passed into the free fluid pocket via ultrasound, and extending the catheter while withdrawing the needle, was able to aspirate nonbloody straw-colored transparent fluid, removed 155 cc and sent sample to the lab. Bandage placed afterwards. Minimal bleeding. No complications, tolerated well. Discharge Plan Triage Chief Complaint: Alt LOC Other Complaint: Abd Pain ED Provider: Herberth Carlson Dx/Rx/DC Orders Clinical Impression: Acute hepatic encephalopathy, Cirrhosis of liver with ascites, Hyperammonemia, Diffuse abdominal pain Prescriptions: No Action Xifaxan 550 mg Tablet 550 mg PO BID Qty: 60 0RF cyclobenzaprine 10 mg tablet 10 mg PO QHS ferrous sulfate [FeroSul] 325 mg (65 mg iron) tablet 325 mg PO QODAY insulin lispro [Humalog KwikPen Insulin] 100 unit/mL Insulin Pen 10 unit subcut TIDAC Qty: 0 0RF lactulose 10 gram/15 mL Solution 10 g PO TID Qty: 3000 0RF Rx Instructions: Goal is 2-3 bowel movements daily if you are having more than this with this amount of lactulose decrease dose to twice daily from 3 times daily insulin glargine-yfgn 100 unit/mL (3 mL) Insulin Pen 20 unit subcut QHS Qty: 15 1RF (DME) pen needle, diabetic [Pen Needle] 31 gauge x 5/16 needle See Rx Instructions .Route Qty: 1200 0RF Rx Instructions: As directed folic acid 1 mg tablet 1 mg PO DAILY calcium carbonate-vitamin D3 [Oyster Shell Calcium-Vit D3] 500 mg-5 mcg (200 unit) tablet 1 tab PO DAILY acetaminophen 500 mg Tablet 1,000 mg PO Q8 PRN (Reason: fever or pain) atorvastatin 40 mg tablet 40 mg PO DAILY magnesium oxide 400 mg (241.3 mg magnesium) tablet 400 mg PO DAILY sodium bicarbonate 650 mg tablet 650 mg PO BID metformin 500 mg tablet extended release 24 hr 500 mg PO QPM thiamine HCl (vitamin B1) 100 mg tablet 100 mg PO DAILY zinc sulfate 50 mg zinc (220 mg) tablet 50 mg PO DAILY ascorbic acid (vitamin C) 500 mg tablet 500 mg PO BID Qty: 60 2RF furosemide 40 mg Tablet 40 mg PO DAILY 30 Days Qty: 30 2RF spironolactone 100 mg tablet 150 mg PO DAILY 30 Days Qty: 30 2RF Rx Instructions: Hold for serum potassium more than 5.0. carvedilol 3.125 mg tablet 3.125 mg PO BID 30 Days Qty: 60 2RF Rx Instructions: must administer with a meal/food Primary Care Provider: Josy Elias Referrals: Josy Elias [facility] [Primary Care Provider] - Print Language: Tajik Disposition Disposition: Acute Care Hospital [facility]
[2025-02-25 13:19] LABS: Differential Indicated SCAN CRITERIA MET; Hematocrit 27.9 % (40-54); Hemoglobin 9.4 g/dL (13.0-16.5); Immature Granulocytes Count 0.040 X10^3/uL (0.0-0.0); Mean Corp Hgb Conc 33.7 g/dL (32-36); Mean Corpuscular Volume 90.3 fL (80-94); Mean Platelet Vol. 12.5 fl (6.2-12.0); NRBC Flagged by Analyzer 0 % (0-5); POSITIVE MORPHOLOGY YES; Platelet Count 160 K/mm3 (150-450); RBC Distribution Width CV 21.6 % (11.6-14.6); RBC Distribution Width SD 69.0 fl (35.1-43.9); Red Blood Count 3.09 M/mm3 (4.6-6.2); White Blood Count 9.2 K/mm3 (4.4-11.0)
--- NOTE | 2025-02-25 13:19 | PCA ---
EX- CALLED AND STATED PT HASNT HAD MEDS TODAY OR YESTERDAY AND HAVE NO RECEIVED HIS SHOT.
[2025-02-25 13:43] LABS: Anisocytosis 1+
[2025-02-25 14:07] LABS: Ammonia 127.0 umol/L (16-60)
[2025-02-25 14:08] LABS: Lipase 64 U/L (13-75)
[2025-02-25 14:11] LABS: AST(SGOT) 97 U/L (<=37); Alanine Aminotransfer ALT/SGPT 51 U/L (<=46); Albumin, Serum 2.0 g/dL (3.5-5.0); Alkaline Phosphatase 249 U/L (40-129); Anion Gap 12 (5-15); BUN 10 mg/dL (4-19); BUN/Creat Ratio 8.9 RATIO (10-20); Calcium,Total 8.1 mg/dL (7.6-11.0); Carbon Dioxide 17.5 mmol/L (21.0-32.0); Chloride 102 mmol/L (98-108); Estimated Creatinine Clearance 86.96 ml/min (50-250); Globulin 3.9 g/dL (2.2-4.2); Glucose 225 mg/dL (70-99); Potassium 3.7 mmol/L (3.3-5.1)
[2025-02-25 16:01] LABS: Mucous, Urine 0 SEEN /hpf (<or=2+); Squamous Epithelial Cells - UA 0 SEEN /hpf (0-5)
--- NOTE | 2025-02-25 16:12 | HP.PCM.HOS_ITS ---
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 Rascon, portal vein thrombosis, diabetes who presented [facility] ED 02/25/2025 due to altered level of consciousness and abdominal pain. In the ED temp 98.5, heart rate of 72 and blood pressure 119/76, respiratory rate 16 and pulse ox 97% on room air. CBC with white blood cell count of 9.2, hemoglobin of 9.4. Platelet count of 160. Lipase 64. CMP with a sodium of 131, BUN of 10 and creatinine 1.07. Glucose 225 and total bili 4.99, AST 47, ALT 51 and alk phos 249. Ammonia 127. UA []. Patient given lactulose there was concern for SBP so ED physician performed diagnostic tap and patient given dose of Rocephin empirically while awaiting results. Hospitalist contacted for admission. Patient evaluated bedside, history limited due to his altered mental status, patient unable to answer any my questions but is protecting his airway and appears awake, just very confused [facility], [facility] Medical History (Updated 02/25/25 @ 16:[address] 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) Obesity (BMI 30-39.9) ABBY on CPAP Sepsis Spinal stenosis, lumbar region with neurogenic claudication Thrombocytopenia Umbilical hernia VRE (vancomycin resistant enterococcus) culture positive Weakness Home Medications ?Medication ?Instructions ?Recorded ?Last Taken ?Type rifaximin 550 mg tablet (Xifaxan) 550 mg PO BID diarrh ea #60 tabs 09/02/24 02/15/25 Rx acetaminophen 500 mg tablet 1,000 mg PO Q8 PRN fever o r pain 10/28/24 Unknown History calcium 500 mg (as 1 tab PO DAILY supplement 02/15/25 History carbonate)-vitamin D3 5 mcg (200 unit) tablet (Oyster Shell Calcium-Vitamin D3) folic acid 1 mg tablet 1 mg PO DAILY supplement 02/15/25 History atorvastatin 40 mg tablet 40 mg PO DAILY cholesterol 0 11/21/24 02/15/25 History magnesium oxide 400 mg (241.3 mg 400 mg PO DAILY suppl ement 11/21/24 02/15/25 History magnesium) tablet metformin 500 mg tablet,extended 500 mg PO QPM diabete s 11/21/24 02/15/25 History release 24 hr sodium bicarbonate 650 mg tablet 650 mg PO BID supplem ent 11/21/24 02/15/25 History thiamine HCl (vitamin B1) 100 mg 100 mg PO DAILY suppl ement 11/21/24 02/15/25 History tablet zinc sulfate 50 mg zinc (220 mg) 50 mg PO DAILY supple ment 11/21/24 02/15/25 History tablet ascorbic acid (vitamin C) 500 mg 500 mg PO BID vitamin #60 tabs 11/25/24 02/15/25 Rx tablet cyclobenzaprine 10 mg tablet 10 mg PO QHS muscle relax er 01/02/25 02/15/25 History ferrous sulfate 325 mg (65 mg 325 mg PO QODAY suppleme nt 01/02/25 02/15/25 History iron) tablet (FeroSul) insulin lispro 100 unit/mL 10 unit (0.1 mL) subcut TID AC #0 mL 01/05/25 02/15/25 Rx subcutaneous pen (Humalog KwikPen (U-100) Insulin) insulin glargine-yfgn 100 unit/mL 20 unit (0.2 mL) sub cut QHS #15 mL 01/31/25 02/15/25 Rx (3 mL) subcutaneous pen lactulose 10 gram/15 mL oral 10 g (15 mL) PO TID #3,00 0 mL 01/31/25 Unknown Rx solution pen needle, diabetic 31 gauge x #1,200 ea 01/31/25 Unk nown Rx 12/17 (Pen Needle) carvedilol 3.125 mg tablet 3.125 mg PO BID 1 month #60 tabs 02/17/25 Unknown Rx furosemide 40 mg tablet 40 mg PO DAILY 30 days #30 t abs 02/17/25 Unknown Rx spironolactone 100 mg tablet 150 mg (1.5 x 100 mg) PO DAILY 1 02/17/25 02/15/25 Rx month #30 tabs Allergy/AdvReac Type Severity Reaction Status Date / Time No Known Allergies Allergy Verified 02/16/25 17:20 Family History Mother Heart disease Hypertension CAD (coronary artery disease) Myocardial infarction Father Hypertension Heart disease Heart failure Surgical History History of tonsillectomy and adenoidectomy Social History household members: significant other Smoking Status: Former smoker how long ago did patient quit smoking: Quit ~ 3-4 months prior (fall 2023), smoked 1.5 ppd since teen until quit. alcohol intake: never substance use type: does not use ROS ROS Narrative Unable to obtain secondary mental status Vital Signs Vital Signs Vital Signs: 02/25/25 11:34 02/25/25 11:36 02/25/25 15:57 Temperature 98.5 F 98.5 F Temperature Source Oral Oral Pulse Rate 72 72 94 Respiratory Rate 16 16 20 H Blood Pressure 119/76 119/76 129/79 H Blood Pressure Mean 90 90 95 Pulse Ox 97 98 100 Oxygen Delivery Method Room Air Room Air Weight Weight: 98.2 kg Body Mass Index (BMI) 31.9 Physical Exam Narrative General: Patient is awake but confused so does not answer questions directly HEENT: Atraumatic, normocephalic Eyes: Anicteric, normal conjunctiva, extraocular movements grossly intact Neck: Supple Respiratory: Clear to auscultation bilaterally, normal respiratory effort Cardiovascular: Regular rate GI: Soft, nondistended, patient has had paracentesis, says ow when palpating however when listening with stethoscope and pressing down does not say this Extremities: Trace lower extremity edema Musculoskeletal: Moving all extremities Neuro: No overt focal neurological deficits however unable to fully assess secondary to patient's mental status and inability to participate in exam Skin: No rashes appreciated Psych: Uncooperative, confused Results Lab / Micro Data 02/25/25 13:08 02/25/25 13:08 Labs: Laboratory Results - last 24 hr 02/25/25 13:08: WBC 9.2, RBC 3.09 L, Hgb 9.4 L, Hct 27.9 L, MCV 90.3, MCH 30.4, MCHC 33.7, RDW Std Deviation 69.0 H, RDW Coeff of Francis 21.6 H, Plt Count 160, MPV 12.5 H, Immature Gran % (Auto) 0.400, Neut % (Auto) 61.8, Lymph % (Auto) 18.5 L , [place] % (Auto) 12.7 H, Eos % (Auto) 5.8 H, Baso % (Auto) 0.8, Absolute Neuts (auto) 5.7, Absolute Lymphs (auto) 1.69, Nucleated RBC % 0, Anisocytosis 1+, S odium 131 L, Potassium 3.7, Chloride 102, Carbon Dioxide 17.5 L, Anion Gap 12, BUN 10, Creatinine 1.07, Estim Creat Clear Calc 86.96, Est GFR (MDRD) Non-Af 80, BUN/Creatinine Ratio 8.9 L, Glucose 225 H, Calcium 8.1, Total Bilirubin 4.99 H, AST 97 H, ALT 51 H, Alkaline Phosphatase 249 H, Ammonia 127.0 H, Total Protein 5.9, Albumin 2.0 L, Globulin 3.9, Albumin/Globulin Ratio 0.5 L, Lipase 64 Assessment & Plan Assessment/Plan (1) Hepatic encephalopathy: PLAN: Plan # Hepatic encephalopathy in setting of Boyer cirrhosis -Ammonia 127 -Schedule lactulose -Continue patient's home medications, still awaiting final med reconciliation -Will consult GI given patient's decompensation with hepatic encephalopathy, patient has been seen in the office, was recently seen 02/17 - Still awaiting UA # Abdominal pain -Concern for SBP -Diagnostic tap in the ED -Covering empirically with Rocephin -Await culture and sensitivity data # History of portal vein thrombosis -Unclear if patient is still on anticoagulation with Lovenox, will need to verify #Type 2 diabetes mellitus -Glucose checks and sliding scale insulin #DVT ppx: Lovenox subcu while awaiting verification of med rec to see if patient is still taking full dose Lovenox Kathie Powers MD Charges/Coding Visit Charges Inpatient E&M: 02550 Init Hosp L2
[2025-02-25 16:22] LABS: Body Fluid Mononuclear WBC # 0.138 10^3/uL; Body Fluid Mononuclear WBC % 90.1 %; Body Fluid Polynuclear WBC # 0.015 10^3/uL; Body Fluid Polynuclear WBC % 9.9 %; White Blood Count/Body Fluid 0.153 10^3/uL
[2025-02-25] MEDS: Lidocaine 1% (20 ml mdv) 20 ML Vial 10 ML INFILT (16:33)
[2025-02-25 17:01] LABS: Color, Urine Red (Yellow); Glucose, Dipstick 100 mg/dl (Normal); Ketone-Dipstick 5 mg/dl (Negative); Leukocyte Esterase-Dipstick 500 /ul (Negative); Nitrite-Dipstick Negative (Negative); Occult Blood-Urine 250 /ul (Negative); Protein-Dipstick 100 mg/dl (Negative); Specific Gravity, Urine 1.015 (1.002-1.030)
[2025-02-25 17:14] LABS: Urine Bilirubin Dipstick 3 mg/dL (Negative)
[2025-02-25 17:26] LABS: Yeast-Urine 2+ /hpf (None Seen)
[2025-02-25 17:27] LABS: Red Blood Cells-Urine > 100 SEEN /hpf (0-5)
--- NOTE | 2025-02-25 18:34 | CON.PCM.GI_ITS ---
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 Rascon, portal vein thrombosis, diabetes who presented [facility] ED 02/25/2025 due to altered level of consciousness and abdominal pain. In the ED temp 98.5, heart rate of 72 and blood pressure 119/76, respiratory rate 16 and pulse ox 97% on room air. CBC with white blood cell count of 9.2, hemoglobin of 9.4. Platelet count of 160. Lipase 64. CMP with a sodium of 131, BUN of 10 and creatinine 1.07. Glucose 225 and total bili 4.99, AST 47, ALT 51 and alk phos 249. Ammonia 127. Patient given lactulose there was concern for SBP so ED physician performed diagnostic tap and patient given dose of Rocephin empirically. His diagnostic paracentesis did not show any signs of SBP. [facility] Medical History (Updated 02/25/25 @ 16:[address] 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) HLD (hyperlipidemia) HTN (hypertension) Thrombocytopenia Chronic anemia Former tobacco use Diabetes mellitus, type 2 ABBY on CPAP Back pain Home Medications ?Medication ?Instructions ?Recorded ?Last Taken ?Type rifaximin 550 mg tablet (Xifaxan) 550 mg PO BID diarrh ea #60 tabs 09/02/24 02/15/25 Rx acetaminophen 500 mg tablet 1,000 mg PO Q8 PRN fever o r pain 10/28/24 Unknown History calcium 500 mg (as 1 tab PO DAILY supplement 02/15/25 History carbonate)-vitamin D3 5 mcg (200 unit) tablet (Oyster Shell Calcium-Vitamin D3) folic acid 1 mg tablet 1 mg PO DAILY supplement 02/15/25 History atorvastatin 40 mg tablet 40 mg PO DAILY cholesterol 0 11/21/24 02/15/25 History magnesium oxide 400 mg (241.3 mg 400 mg PO DAILY suppl ement 11/21/24 02/15/25 History magnesium) tablet metformin 500 mg tablet,extended 500 mg PO QPM diabete s 11/21/24 02/15/25 History release 24 hr sodium bicarbonate 650 mg tablet 650 mg PO BID supplem ent 11/21/24 02/15/25 History thiamine HCl (vitamin B1) 100 mg 100 mg PO DAILY suppl ement 11/21/24 02/15/25 History tablet zinc sulfate 50 mg zinc (220 mg) 50 mg PO DAILY supple ment 11/21/24 02/15/25 History tablet ascorbic acid (vitamin C) 500 mg 500 mg PO BID vitamin #60 tabs 11/25/24 02/15/25 Rx tablet cyclobenzaprine 10 mg tablet 10 mg PO QHS muscle relax er 01/02/25 02/15/25 History ferrous sulfate 325 mg (65 mg 325 mg PO QODAY suppleme nt 01/02/25 02/15/25 History iron) tablet (FeroSul) insulin lispro 100 unit/mL 10 unit (0.1 mL) subcut TID AC #0 mL 01/05/25 02/15/25 Rx subcutaneous pen (Humalog KwikPen (U-100) Insulin) insulin glargine-yfgn 100 unit/mL 20 unit (0.2 mL) sub cut QHS #15 mL 01/31/25 02/15/25 Rx (3 mL) subcutaneous pen lactulose 10 gram/15 mL oral 10 g (15 mL) PO TID #3,00 0 mL 01/31/25 Unknown Rx solution pen needle, diabetic 31 gauge x #1,200 ea 01/31/25 Unk nown Rx 12/17 (Pen Needle) carvedilol 3.125 mg tablet 3.125 mg PO BID 1 month #60 tabs 02/17/25 Unknown Rx furosemide 40 mg tablet 40 mg PO DAILY 30 days #30 t abs 02/17/25 Unknown Rx spironolactone 100 mg tablet 150 mg (1.5 x 100 mg) PO DAILY 1 02/17/25 02/15/25 Rx month #30 tabs Allergy/AdvReac Type Severity Reaction Status Date / Time No Known Allergies Allergy Verified 02/16/25 17:20 Family History Mother Heart disease Hypertension CAD (coronary artery disease) Myocardial infarction Father Hypertension Heart disease Heart failure Surgical History History of tonsillectomy and adenoidectomy Social History household members: significant other Smoking Status: Former smoker how long ago did patient quit smoking: Quit ~ 3-4 months prior (fall 2023), smoked 1.5 ppd since teen until quit. alcohol intake: never substance use type: does not use Lab / Micro Data 02/25/25 13:08 02/25/25 13:08 Labs: Laboratory Results - last 24 hr 02/25/25 13:08: WBC 9.2, RBC 3.09 L, Hgb 9.4 L, Hct 27.9 L, MCV 90.3, MCH 30.4, MCHC 33.7, RDW Std Deviation 69.0 H, RDW Coeff of Francis 21.6 H, Plt Count 160, MPV 12.5 H, Immature Gran % (Auto) 0.400, Neut % (Auto) 61.8, Lymph % (Auto) 18.5 L, [place] % (Auto) 12.7 H, Eos % (Auto) 5.8 H, Baso % (Auto) 0.8, Absolute Neuts (auto) 5.7, Absolute Lymphs (auto) 1.69, Nucleated RBC % 0, Anisocytosis 1+, S odium 131 L, Potassium 3.7, Chloride 102, Carbon Dioxide 17.5 L, Anion Gap 12, BUN 10, Creatinine 1.07, Estim Creat Clear Calc 86.96, Est GFR (MDRD) Non-Af 80, BUN/Creatinine Ratio 8.9 L, Glucose 225 H, Calcium 8.1, Total Bilirubin 4.99 H, AST 97 H, ALT 51 H, Alkaline Phosphatase 249 H, Ammonia 127.0 H, Total Protein 5.9, Albumin 2.0 L, Globulin 3.9, Albumin/Globulin Ratio 0.5 L, Lipase 64 02/25/25 15:40: Fluid WBC 0.153, Fluid Tot Cell Count 0.207, Fld Polynuclear WBCs # 0.015, Fld Polynuclear WBCs % 9.9, Fluid Mononuclear WBCs 0.138, Fld Mononuclear WBCs % 90.1 02/25/25 15:48: Urine Color Red, Urine Clarity Cloudy, Urine pH 6.5, Ur Specific [place] 1.015, Urine Protein 100 H, Urine Glucose (UA) 100 H, Urine Ketones 5 H, Urine Occult Blood 250 H, Urine Nitrite Negative, Urine Bilirubin 3 H, Urine Urobilinogen Normal, Ur Leukocyte Esterase 500 H, Urine RBC > 100 SEEN, Urine WBC >100 SEEN, Ur Squamous Epith Cells 0 SEEN, Urine Bacteria 0 SEEN, Urine Mucus 0 SEEN, Urine Yeast 2+ 02/25/25 17:08: POC Glucose 192 H Assessment & Plan Assessment/Plan (1) Diffuse abdominal pain: (2) Acute hepatic encephalopathy: (3) Hepatic encephalopathy: (4) Hyperammonemia: (5) Elevated liver enzymes: (6) Cirrhosis of liver with ascites: PLAN: 59-year-old individual admitted to the hospital with a history of BOYER cirrhosis, portal vein thrombosis (PVT), and severe hepatic encephalopathy.The patient presents with increasing confusion, disorientation to time and place, lethargy. .Past medical history includes BOYER cirrhosis, diagnosed via liver biopsy several years ago, and recent diagnosis of PVT by imaging studies. The patient has experienced previous episodes of HE, with current severe symptoms impacting daily activities.Current medications include lactulose as an outpatient * Abdomen:?Distended with ascites. Splenomegaly on palpation. Evidence of esophageal varices (based on history of GI bleeding or upper endoscopy * Liver function tests: Elevated liver enzymes (ALT, AST), bilirubin, and prolonged INR. His previous MELD score ranged from 20-30. His current MELD score is 24. Abnormalities in liver function tests, such as elevated liver enzyme levels, can be present in cases of portal vein thrombosis. * Ammonia: Elevated to 123. * Electrolytes: Possible imbalances (e.g., hyponatremia, hypokalemia). * Blood urea nitrogen: Elevated.Imaging * Previous CT abdomen: Confirms PVT. May show signs of portal hypertension such as splenomegaly and ascites. * Previous brain CT did not show any acute abnormalities to explain his abdominal status. Also did not show any signs of herniation from hyperammonemia.: This is a 59-year-old patient with BOYER cirrhosis, complicated by portal vein thrombosis and severe hepatic encephalopathy (likely Grade 3 or 4 based on clinical presentation). The patient's current symptoms are consistent with advanced liver disease, with elevated ammonia levels and other lab abnormalities supporting the diagnosis of severe HE. The PVT may contribute to portal hypertension and potentially exacerbate the HE. Potential precipitating factors for the worsening HE should be investigated and include: infection, gastrointestinal bleeding, constipation, electrolyte abnormalities, and medication non-compliance. Plan * Continue current medications:?Lactulose (titrate to achieve 4-5 soft stools per day) and rifaximin. * Identify and treat precipitating factors: * Obtain cultures (blood, urine, ascites) and treat any identified infections aggressively. * Monitor for GI bleeding with CBC. * Correct electrolyte imbalances (especially potassium and sodium).. * Review medications and discontinue any potentially contributing drugs (acetaminophen, cyclobenzaprine) * Consider adjunctive therapies: * Intravenous O-pyjyvosmo-G-aspartate (SOTO), if available. * Albumin administration. * zinc supplementation has been suggested as a potential treatment option, especially in patients with zinc deficiency. * Consider probiotics. * Consider liver transplantation evaluation:?Given the severity of the HE and the underlying BOYER cirrhosis and PVT, assess the patient's candidacy for liver transplantation. Charges/Coding Visit Charges Inpatient E&M: 08068 Init Hosp L3
[2025-02-25 18:40] LABS: Auto B Fluid Analyzer BKGD Ct COUNTS W/IN LIMITS (W/IN LIMITS)
[2025-02-25 18:41] LABS: Color/Body Fluid YELLOW; Source- Body Fluid ASCITES FLUID
[2025-02-25 18:42] LABS: Appearance/Body Fluid SL CLDY; Red Cell Count/Body Fluid 283 /mm3
[2025-02-25 18:44] LABS: Body Fluid QC Type(s) BF3Q
--- NOTE | 2025-02-25 19:38 | CASEMGMT ---
DAYSI HUGHES readmission note: Index admission: 01/28-01/31: Hepatic encephalopathy. Pt w/hx of hepatic encephalopathy in setting of Boyer cirrhosis, Type 2 DM, medical noncompliance. Pt admitted from [facility]. Pt wanted to go home @ discharge and wanted HHC. Attempted to set up HHC but unable to find an accepting agency. Rx's for linezolid & lactulose e-scribed to [facility]. Per DAYSI Irizarry f/u phone call on 02/02, pt was taking lactulose as ordered and was having more than 4 BM's/day. Pt was educated to decrease frequency of lactulose from 3 to 2 times a day as indicated on the DC instructions. Pt was also advised to f/u with PCP as soon as possible, as he was unable to find all of his medications. Pt had not picked up the new Rx for linezolid yet. OBS admission: 02/16-02/17: Decompensated cirrhosis. See Julita TAVAREZ CM note 02/17. DAYSI HUGHES verified w/Isael Parkinson that pt had picked up the linezolid 02/02. Unable to attempt to set up HHC, as pt had not been established w/a PCP yet. The following appts were scheduled: Josy Elias @ [facility] 02/28 @ 11:30 AM. This appt was a hospital f/u appt, for medication review, and also to get established as a new pt. If pt [facility] not [facility], this appt will need to be cancelled. Dr Friend: 03/16 @ 1 PM. Pt discharged home w/ex , who stated she would be taking pt to appts and assisting w/medication mgnt. Rx's's e-scribed to [facility] pharmacy. Pt had informed this RN SAUL that he was out of a lot of his medications and this RN CM asked ex- to bring in pill bottles to have nurse review what he had @ home and what he needed Rx's for. Unsure at this time if this occurred at discharge. Pt was also to have f/u labs drawn 03/03. Referrals were made to [facility] as well as [facility] palliative. Current admission: 02/25: Hepatic encephalopathy. See CCN notes 02/24 and 02/25. Per [facility]N note, ex-/CG is very involved in pt's care and states pt usually stays in bed all day, but can ambulate to recliner in living room. Pt uses walker @ baseline. [facility] nurse met w/ 02/24 and states most of the visit was reviewing medications. 02/25: another home visit was scheduled by [facility] once CG picked up medications. Upon arrival, pt mumbling, alert to person, place at times, and it was noted no meds taken from med box x 2 days. Squad called per CCN note. Noted that pt has been discharged from [facility] d/t multiple diagnoses that exceed what [facility] can do for pt at this time & note also states pt needs 24-hr care. Holger BSN RN CM
--- OUTSIDE RECORDS SUMMARY | 2025-02-25 20:27 | XMS RPT_ITS | CCD ---
Author Organization [facility] Care Team Providers Care Gas Generator Operator Name Role Phone Sergey HERNANDEZ, Maurice Soria Primary Care Provider [phone]( [phone] Care Physician, No Primary Primary Care Provider Unavailable Dr. Danny Hutton DO Attending Provider Dr. Danny Hutton DO Emergency Provider Dr. Luis Carlos Anderson DO Emergency Provider Mone HERNANDEZ, Dr. Maria Guadalupe Carlson Admit Provider Dr. Maria Guadalupe Shore MD Referring Provider Dr. Maria Guadalupe Shore MD Other Provider Dr. Rick Carlin DO Attending Provider Erin HERNANDEZ, Dr. Rocha Other Provider Zelalem HERNANDEZ, Dr. Coker Other Provider Dr. Christian Abdi MD Other Provider Dr. Juarez Baird MD Other Provider Dr. Bola Meraz DO Attending Provider Dr. Bola Meraz DO Other Provider Víctor HERNANDEZ, Dr. Hill Alcaraz Other Provider Dr. Jeff Cornelius MD Other Provider Missael HERNANDEZ, Dr. Cotton Other Provider Ashely HERNANDEZ, Dr. Foote Other Provider Cassandra HERNANDEZ, Dr. Garvin Other Provider Yamil HERNANDEZ, Dr. Solis Other Provider [phone] Rojas HERNANDEZ, Dr. Enriquez Other Provider Seble HERNANDEZ, Dr. Hernández Other Provider Desmond HERNANDEZ, Dr. Snow Other Provider Unavailabl karma Venegas MD, Dr. Whyte Other Provider [phone] Laurent HERNANDEZ, Dr. Raya Other Provider Angely HERNANDEZ, Dr. Silver Other Provider Jazmyne NOYOLA, Dr. Cuevas Other Provider Carmela HERNANDEZ, Dr. Tam Other Provider [phone] Mallorie HERNANDEZ, Dr. Kelly Other Provider [...] Provider Dr. Anurag Irene MD Attending Provider Nilsa NOYOLA, Dr. Rowe Attending Provider Timbo NOYOLA, Dr. Shook Other Provider BILLDIANE Parada Attending Provider BILLDIANE Parada Referring Provider BILLTREY ParadaA Other Provider Bailee PRINCIPAL EXAMINER-C, Jasmine Attending Provider Shaun HERNANDEZ, Dr. Campo Emergency Provider Caro DO, Dr. Alejandre Attending Provider Unav ailable Care Physician, No Primary Primary Care Provider Unavailable GeorgiLucero NOYOLA, Dr. Delgado Attending Provider GeorgiLucero NOYOLA, [...] Provider Missael HERNANDEZ, Dr. Cotton Other Provider [phone] Ashely HERNANDEZ, Dr. Foote Other Provider [phone] Cassandra HERNANDEZ, Dr. Garvin Other Provider Yamil HERNANDEZ, Dr. Solis Other Provider Rojas HERNANDEZ, Dr. Enriquez Other Provider [phone] Seble HERNANDEZ, Dr. Hernández Other Provider Desmond HERNANDEZ, Dr. Snow Other Provider Unavailabl karma Venegas MD, Dr. Whyte Other Provider Laurent HERNANDEZ, Dr. Raya Other Provider Angely HERNANDEZ, Dr. Silver Other Provider Jazmyen NOYOLA, Dr. Cuevas Other Provider Carmela HERNANDEZ, Dr. Tam Other Provider [phone] Mallorie HERNANDEZ, Dr. Kelly Other Provider [...] Provider Nomi HERNANDEZ, Dr. Douglas Other Provider [phone] Teto HERNANDEZ, Dr. Osborn Attending Provider Dr. Jae Ash DO Attending Provider Timbo NOYOLA, Dr. Shook Other Provider TREY CALLAHANA Attending Provider BILLTREY ParadaA Referring Provider BILLKarma, DIANE Other Provider Bailee PRINCIPAL EXAMINER-C, Jasmine Attending Provider Shaun HERNANDEZ, Dr. Campo [...] Dr. Scott Weston DO Other Provider Elie PRINCIPAL EXAMINER-C, Yue Other Provider Caro DO, Dr. Alejandre Referring Provider Unav ailable Shila HERNANDEZ, Dr. Buster Barr Attending Provider Shila HERNANDEZ, Dr. Buster Barr Referring Provider Dr. Hill Acuña MD Attending Provider Unavaila priscila Powers MD, Dr. Vázquez Other Provider Unavailable Primary Care Provider Radha Carlson MD, Dr. Kevin Emergency Provider Dr. Jae Ash DO Admit Provider Gio HERNANDEZ, Dr. Vázquez Admit Provider Tannhof PRINCIPAL EXAMINER-C, Josy Primary Care Provider Tannhof PRINCIPAL EXAMINER-C, Josy Attending Provider KATHIE POWERS Referring Unavailable DAY PRICE Admitting Unavailable YOUNG CRUZ Attending Unavailable Care Physician, No Primary Primary Care Provider Unavailable Curt PRINCIPAL EXAMINER-CJosy Referring Provider Wei NOYOLA, Dr. Shook Emergency Provider Raegan NOYOLA, Dr. Cabrera Other Provider Jen NOYOLA, Dr. Ureña Attending Provider Zelalem HERNANDEZ, Dr. Coker Other Provider Trinidad HERNANDEZ, Dr. Gonzales Other Provider Oli HERNANDEZ, Dr. Pizarro Other Provider Kt NOYOLA, Dr. Plaza Attending Provider [phone] Kt NOYOLA, Dr. Plaza Other Provider Víctor HERNANDEZ, Dr. Hill Alcaraz Other Provider Ashli HERNANDEZ, Dr. Aguilar Other Provider Missael HERNANDEZ, Dr. Cotton Other Provider [phone] Ashely HERNANDEZ, Dr. Foote Other Provider Cassandra HERNANEDZ, Dr. Garvin Other Provider Dr. Will Lobo MD Other Provider Dr. Mina Xie MD Other Provider [phone] Dr. Betty Pruett MD Other Provider Dr. Gwendolyn Logan MD Other Provider [facility] karma Venegas MD, Dr. Whyte Other Provider Laurent HERNANDEZ, Dr. Raya Other Provider Angely HERNANDEZ, Dr. Silver Other Provider Dr. Mason Samano DO Other Provider Carmela HERNANDEZ, Dr. Tam Other Provider [phone] Mallorie HERNANDEZ, Dr. Kelly Other Provider Nuzhat NOYOLA, Dr. Cooper Other Provider Rosendo HERNANDEZ, Dr. Wesley Other Provider Dylan HERNANDEZ, Dr. Colon Other Provider Jeremi NOYOLA, Dr. Enriquez Emergency Provider Care Physician, No Primary Primary Care Provider Unavailable Erin HERNANDEZ, Dr. Rocha Other Provider Jen DO, Dr. Ureña Attending Provider Wei NOYOLA, Dr. Shook Attending Provider Lala NOYOLA, Dr. Pereyra Emergency Provider Shila HERNANDEZ, Dr. Buster Barr Admit Provider Teto HERNANDEZ, Dr. Osborn Attending Provider Zelalem HERNANDEZ, Dr. Coker Other Provider Trinidad HERNANDEZ, Dr. Gonzales Other Provider Oli HERNANDEZ, Dr. Pizarro Other Provider Dr. Bola Meraz DO Attending Provider Dr. Bola Meraz DO Other Provider Víctor HERNANDEZ, Dr. Hill Alcaraz Other Provider [phone] Ashli HERNANDEZ, Dr. Aguilar Other Provider Missael HERNANDEZ, Dr. Cotton Other Provider [phone] Ashely HERNANDEZ, Dr. Foote Other Provider Cassandra HERNANDEZ, Dr. Garvin Other Provider [phone] Dr. Will Lobo MD Other Provider [phone] Dr. Mina Xie MD Other Provider Seble HERNANDEZ, Dr. Hernández Other Provider Desmond HERNANDEZ, Dr. Snow Other Provider [facility] karma Mosher MD, Dr. Douglas Other Provider Theo HERNANDEZ, Dr. Whyte Other Provider Laurent HERNANDEZ, Dr. Raya Other Provider Angely HERNANDEZ, Dr. Silver Other Provider Jazmyne NOYOLA, Dr. Cuevas Other Provider [phone] Carmela HERNANDEZ, Dr. Tam Other Provider Mallorie HERNANDEZ, Dr. Kelly Other Provider Nuzhat NOYOLA, Dr. Cooper Other Provider Rosendo HERNANDEZ, Dr. Wesley Other Provider Dylan HERNANDEZ, Dr. Colon Other Provider Dr. Jae Ash DO Attending Provider Teto HERNANDEZ, Dr. Osborn Attending Provider Jeremi NOYOLA, Dr. Enriquez Attending Provider Dr. Breann Mendez DO Emergency Provider [phone] Yaritza Leo DO Admit Provider Dr. Yaritza Leo DO Attending Provider Care Physician, No Primary Primary Care Provider Unavailable de Kyle NOYOLA, Dr. Alejandre Admit Provider Unavail able Caro DO, Dr. Alejandre Other Provider Unavail able Abiodun HERNANDEZ, Dr. Foster Rivas Other Provider Dr. Jea Ash DO Attending Provider Dr. Jae Ash [...] Provider Timbo NOYOLA, Dr. Shook Attending Provider Jeremi NOYOLA, Dr. Enriquez Referring Provider Justin NOYOLA, Dr. Aldridge Emergency Provider Jeremi NOYOLA, Dr. Enriquez Other Provider Mar Donahue Attending Provider Presley HERNANDEZ, Dr. Marques Attending Provider Presley HERNANDEZ, Dr. Marques Referring Provider PHYSICIAN, NONE Attending Unavailable PHYSICIAN, NONE Primary Care Unavailable Jen NOYOLA, Dr. Ureña Other Provider [phone] White, Maria Guadalupe L Consulting Unavailable White, Maria Guadalupe L Attending Unavailable White, Maria Guadalupe L Admitting Unavailable White, Maria Guadalupe L Referring Unavailable Care Physician, No Primary Primary Care Unava ilable John Paul Masterson Consulting Unavailable Bola Meraz Attending Unavailable Christian Abdi Consulting Unavailable Juarez Baird Consulting Unavailable Bola Meraz Consulting Unavailable Hill Renee Consulting Unavailable Jeff Cornelius Consulting Unavailable Yury Canas Consulting Unavailable Dary Lund Consulting Unavailab Bharathi Moore Consulting Unavailable Will Lobo Consulting Unavailable Mina Xie Consulting Unavailable Betty Pruett Consulting Unavailable Aljunayad, Lamvic Consulting Unavailable Theo, Pato Consulting Unavailable Iruksetphani, Elver Consulting Unavailable Angely, Nadeem Consulting Unavailable Dheaaliyah, Mason Consulting Unavailable nAel Casey Consulting Unavailable Mallorie, Robin Consulting Unavailable Kenneth Noland Consulting Unavailable Rosendo, Lupillo Consulting Unavailable Young Richardson Consulting Unavailable Erin, Josefina Consulting Unavailable Rick Carlin Consulting Unavailable Josy Elias Primary Care Unavailable Boone Carvajal Attending Unavailable Josy Elias Attending Unavailable [facility] [place], Josy Primary Care Unavailable Rick Carlin Attending Unavailable Care Physician, No Primary Primary Care Unava ilable FABIÁN MARAVILLA Referring Unavailable FABIÁN MARAVILLA Consulting Unavailable Bailee PRINCIPAL EXAMINER, Jasmine Attending Unavailable Mina Blood Consulting Unavailable Mina Blood Referring Unavailable Mar Lopez Attending Unavailable Jerald Sherwood Primary Care Unavailable Care Physician, No Primary Primary Care Unava ilable Hill Caro Consulting Unavailable Hill Acuña Attending Unavailable Hill Caro Admitting Unavailable Foster Rascon Consulting Unavailable Buster Fuchs Consulting Unavailable Hill Acuña Consulting Unavailable Jae Ash Admitting Unavailable Care Physician, No Primary Primary Care Unava ilable Jae Ash Consulting Unavailable Anurag Irene Attending Unavailable Anurag Irene Consulting Unavailable Jae Ash Admitting Unavailable Care Physician, No Primary Primary Care Unava ilable Jae Ash Consulting Unavailable Anurag Irene Attending Unavailable Teto Anurag Consulting Unavailable Dericktsonis, Buster F Consulting Unavailable Dericktsonis Buster F Admitting Unavailable Michaelles Buster F Attending Unavailable Josy Elias Primary Care Unavailable Hill Acuña Attending Unavailable Hill Acuña Consulting Unavailable Jae Ash Attending Unavailable Kathie Powers Consulting Unavailable Kathie Powers Admitting Unavailable Kathie Powers Attending Unavailable Care Physician, No Primary Primary Care Unava ilable Hill Acuña Attending Unavailable Hill Acuña Consulting Unavailable Thai Thurston Consulting Unavailable Jae Ash Admitting Unavailable Care Physician, No Primary Primary Care Unava ilable Jae Ash Consulting Unavailable Anurag Irene Attending Unavailable Care Physician, No Primary Primary Care Unava ilable Kathie Powers Attending Unavailable Hill Caro Consulting Unavailable Hill Caro Admitting Unavailable Foster Rascon Consulting Unavailable Buster Fuchs Consulting Unavailable Hill Acuña Consulting Unavailable Hill Herrmann Consulting Unavailable Blair Cage Consulting Unavailable Thiago Wray Consulting Unavailable Gabbi Hughes Consulting Unavailable Thai Godfrey Consulting Unavailable Juan Daniel Garza Consulting Unavailable Zachariah Glover Consulting Unavailable Scott Weston Consulting Unavailable Yue Delgadillo Consulting Unavailable Boone Izquierdo Attending Unavailable Care Physician, No Primary Primary Care Unava ilable Hill Caro Consulting Unavailable Hill Caro Admitting Unavailable Anurag Irene Consulting Unavailable Jae sAh Consulting Unavailable Thai Thurston Consulting Unavailable Erin, Ruizprakas Consulting Unavailable Foster Rascon Consulting Unavailable Jae Ash Consulting Unavailable Jae Ash Admitting Unavailable Josy Elias Primary Care Unavailable Anurag Irene Attending Unavailable Niranjan Li Consulting Unavailable Care Physician, No Primary Primary Care Unava ilable FABIÁN MARAVILLA Attending Unavailable FABIÁN MARAVILLA Referring Unavailable Care Physician, No Primary Primary Care Unava ilable Foster Rascon Consulting Unavailable Anurag Irene Attending Unavailable Hill Caro Admitting Unavailable Hill Caro Consulting Unavailable Thai Thurston Consulting Unavailable Erin, Jayaprakas Consulting Unavailable Teto, Anurag Consulting Unavailable Boone Izquierdo Attending Unavailable Jae Ash Consulting Unavailable Boone Izquierdo Consulting Unavailable Kathie Powers Attending Unavailable Kathie Powers Consulting Unavailable Boone Izquierdo Admitting Unavailable Timbo Boone Consulting Unavailable Yaritza Leo Attending Unavailable Jerald Sherwood Primary Care Unavailable Maria Guadalupe Shore Consulting Unavailable Maria Guadalupe Shore Referring Unavailable Rick Carlin Attending Unavailable Maria Guadalupe Shore Admitting Unavailable Care Physician, No Primary Primary Care Unava ilable Erin, Jayaprakas Consulting Unavailable Yaritza Leo Consulting Unavailable Yaritza Leo Admitting Unavailable Josy Elias Primary Care Unavailable Anurag Irene Attending Unavailable Jefferson Malave Consulting Unavailable Aleyda Bautista Consulting Unavailable Cielo Tovar Consulting Unavailable Mina Blood Referring Unavailable Mnia Blood Attending Unavailable Sherwood, Jerald Primary Care Unavailable Sherwood, Jerald Attending Unavailable Sherwood, Jerald Referring Unavailable Sherwood, Jerald Primary Care Unavailable Mina Blood Attending Unavailable Pastorhof, Josy Primary Care Unavailable Mina Blood Attending Unavailable Sherwood, Jerald Primary Care Unavailable Luis Carlos Anderson Attending Unavailable Sherwood, Jerald Primary Care Unavailable Care Physician, No Primary Primary Care Unava ilable Danny Hutton Attending UnavailJohn Paul Roberts Consulting Unavailable Hill Caro Attending Unavailable Christian [...] Consulting Unavailable Young Richardson Consulting Unavailable Hill Herrmann Consulting Unavailable Blair Cage Consulting Unavailable Thiago Wray Consulting Unavailable Gabbi Hughes Consulting Unavailable Thai Godfrey Consulting Unavailable Juan Daniel Garza Consulting Unavailable Zachariah Glover Consulting Unavailable Scott Weston Consulting Unavailable Yue Delgadillo Consulting Unavailable Niranjan Li Attending Unavailable Hill Acuña Attending Unavailable Buster Fuchs Consulting Unavailable Buster Fuchs Admitting Unavailable Pastorhof, Josy Primary Care Unavailable Kathie Powers Consulting Unavailable Kathie Powers Admitting Unavailable Hill Acuña Attending Unavailable Care Physician, No Primary Primary Care Unava ilable Thai Thurston Consulting Unavailable Pastorhof, Josy Primary Care Unavailable Josy Eilas Attending Unavailable Camillef, Josy Referring Unavailable Niranjan Li Attending Unavailable Buster Fuchs Referring Unavailable Buster Fuchs Attending Unavailable Boone Izquierdo Admitting Unavailable Yaritza Leo Attending Unavailable Boone Izquierdo Consulting Unavailable Jerald Sherwood Primary Care Unavailable Yaritza Leo Consulting Unavailable Jae Ash Consulting Unavailable Jae Ash Attending Unavailable Jae Ash Admitting Unavailable Jerald Sherwood Primary Care Unavailable Anurag Irene Attending Unavailable Niranjan Li Consulting Unavailable Teto, Anurag Consulting Unavailable FriendNiranjan Attending Unavailable [facility]available Jae Ash Attending Unavailable Yaritza Leo Admitting Unavailable Yaritza Leo Consulting Unavailable [facility] Primary Care Unavailable Teto Anurag Attending Unavailable Jefferson Malave Consulting Unavailable Aleyda Bautista Consulting Unavailable Koram, Cielo Edyta Consulting Unavailable Teto, Anurag Consulting Unavailable Boone Izquierdo Attending Unavailable Sherwood, Jerald Primary Care Unavailable Care Physician, No Primary Primary Care Unava ilable FABIÁN MARAVILLA Referring Unavailable FABIÁN MARAVILLA Attending Unavailable Hill Caro Unavailable John Paul Masterson Consulting Unavailable Trinidad, Christian Consulting Unavailable Juarez Baird Consulting Unavailable Bola Meraz Consulting Unavailable Hill Renee Consulting Unavailable Jeff Cornelius Consulting Unavailable Missael, Yury Consulting Unavailable Habtegemyron, Dary Consulting Unavailab le Dand, Bharathi Consulting Unavailable Will Lobo Consulting Unavailable Mina Xie Consulting Unavailable Seble, Betty Consulting Unavailable Gwendolyn Logan Consulting Unavailable Stella Mosher Consulting Unavailable Theo, Pato Consulting Unavailable Elver Mancilla Consulting Unavailable Angely, Nadeem Consulting Unavailable Mason Samano Consulting Unavailable Anel Casey Consulting Unavailable Robin Nobles Consulting Unavailable Kenneth Noland Consulting Unavailable Rosendo Lupillo Consulting Unavailable Young Richardson Consulting Unavailable Bola Meraz Attending Unavailable Teto, Anurag Referring Unavailable Yaritza Leo Attending Unavailable Guy, Cielo Edyta Referring Unavailable Bola Meraz Attending Unavailable John Paul Masterson Consulting Unavailable Abdi, Christian Consulting Unavailable Juarez Baird Consulting Unavailable Bola Meraz Consulting Unavailable Hill Renee Consulting Unavailable Jeff Cornelius Consulting Unavailable Missael, Yury Consulting Unavailable Habtegebrconnie, Dary Consulting Unavailab le Dand, Bharathi Consulting Unavailable Lobo, Will Consulting Unavailable Mina Xie Consulting Unavailable Seble, Betty Consulting Unavailable Gwendolyn Logan Consulting Unavailable Stella Mosher Consulting Unavailable Pato Venegas Consulting Unavailable Elver Mancilla Consulting Unavailable Nadeem Au Consulting Unavailable Mason Samano Consulting Unavailable Anel Casey Consulting Unavailable Robin Nobles Consulting Unavailable Kenneth Noland Consulting Unavailable Lupillo Robbins Consulting Unavailable Young Richardson Consulting Unavailable Cielo Tovar Attending Unavailable Jefferson Malave Attending Unavailable Anurag Irene Referring Unavailable Bola Meraz Attending Unavailable Hill Caro Referring Unavailable Medications Current Medications Medication Drug Class(es) Dates Sig (Normalized) Sig (Original) acetaminophen 500 mg oral tablet (20 sources) Start: 09-14-2024 End: 10-28-2024 Acetaminophen 50 0 mg cap Take by mouth. Active ascorbic acid 500 mg oral tablet (14 sources) Vitamin C Start: 11-25-2024 atorvastatin 40 mg oral tablet (15 sources) HMG-CoA Reductase Inhibitor Start: 11-21-2024 calcium carbonate 1250 mg / cholecalciferol 200 unt oral tablet (20 sources) Vitamin D Start: 10-28-2024 carvedilol 3.125 mg oral tablet (1 source) alpha-Adrenergic Tracey, beta-Adrenergic Tracey Start: 02-17-2025 ciprofloxacin 500 mg oral tablet (1 source) [...] 2024 1:00am September 02, 2024 3:44pm furosemide 40 mg oral tablet (20 sources) Loop Diuretic Start: 02-17-2025 Start: 11-18-2024 End: 02-17-2025 Start: 10-28-2024 End: 11-21-2024 Start: 10-04-2024 take [...] 11/03/2024 Active take 2 tablets by mo [facility] once daily furosemide (LASIX) 20 mg tablet Take 40 mg by mouth once daily. Suspended magnesium oxide 400 mg oral tablet (15 sources) Start: 11-21-2024 24 hr metFORMIN hydrochlorid e 500 mg extended release oral tablet (18 sources) Biguanide Start: 11-21-2024 Start: 11-18-2024 take 1 tablet by bipin once daily at dinner metFORMIN ER (GLUMETZA) 500 mg 24 hr tablet Take 1 tablet by mouth daily with dinner. 90 tablet 11 11/18/2024 Active phenazopyridine hydrochloride 200 mg oral tablet [...] 09-02-2024 sodium bicarbonate 650 mg oral tablet (17 sources) Start: 11-21-2024 Start: 11-18-2024 End: 12-18-2024 take 1 tablet by mouth twice daily sodium bicarbonate 650 mg tablet 1 tablet by ORAL/FEEDING TUBE route two times a day. 60 tablet 11/18/2024 12/18/2024 Active spironolactone 100 mg oral t ablet (20 sources) Aldosterone Antagonist Start: 01-21-2025 End: 02-17-2025 Start: 01-21-2025 End: 02-16-2025 Start: 11-21-2024 End: 01-21-2025 Start: 11-18-2024 [facility] sp[facility]one (ALDACTONE) 50 mg [...] Active zinc sulfate 220 mg oral tablet (18 sources) Start: 11-21-2024 Start: 11-18-2024 take 1 capsule by mo [facility] once daily zinc sulfate 220 mg [...] / HYDROcodone bitartrate 5 mg oral tablet (18 sources) Opioid Agonist Start: 09-02-2024 End: 09-14-2024 Start: 09-02-2024 End: 09-14-2024 Hydrocodone-Acetaminophen 5- 325 mg Tablet Discontinued 1 {tbl} PO EVERY 4 HOURS NEEDED as needed for Pain Score 1-10 30 7 September 02, 2024 September 14, 2024 6:37pm apixaban 5 mg oral tablet (15 sources) Factor Xa Inhibitor Start: 11-21-2024 End: 11-25-2024 cephalexin 500 mg oral capsu le (11 sources) Cephalosporin Antibacterial Start: 12-30-2024 End: 01-05-2025 doxycycline monohydrate 100 mg oral capsule (18 sources) Tetracycline-class Drug Start: 09-14-2024 End: 10-28-2024 0.8 ml enoxaparin sodium 150 mg/ml prefilled syringe (18 sources) Low Molecular Weight Heparin Start: 11-21-2024 End: 12-30-2024 Start: 11-18-2024 inject 100 mg by sub cutaneous injection every twelve hours enoxaparin (LOVENOX) 120 mg/0.8 mL injection Inject 99 mg subcutaneously every 12 hours. Inject 0.7 mL subcutaneously every 12 hours 48 mL 2 11/18/2024 Active fluconazole 200 mg oral tabl et (17 sources) Azole Antifungal Start: 11-18-2024 End: 11-27-2024 ibuprofen 800 mg oral tablet (20 sources) Nonsteroidal Anti-inflammatory Drug Start: 10-28-2024 End: 11-25-2024 take 1 tablet by bipin th every eight hours as needed ibuprofen (MOTRIN) 800 mg tablet Take 80 0 mg by mouth every 8 hours as needed for fever (specify temp.) or pain. Suspended imiquimod 50 mg/ml topical cream (14 sources) Start: 12-02-2024 End: 12-30-2024 Insulin Glargine-Yfgn 100 unit/mL (3 mL) Insulin Pen (2 sources) Start: 09-02-2024 End: 09-14-2024 Insulin Glargine-Yfgn 100 unit/mL (3 mL) Insulin Pen Discontinued 10 U SC TWICE A DAY September 02, 2024 1:00am September 14, 2024 [...] within 12 hours or as directed by . Active linezolid 600 mg oral tablet (5 sources) Oxazolidinone Antibacterial Start: 01-31-2025 End: 02-16-2025 midodrine hydrochloride 10 m g oral tablet (20 sources) alpha-Adrenergic Agonist Start: 11-25-2024 End: 02-16-2025 Start: 09-02-2024 End: 10-28-2024 take 1 tablet by bipin th three times daily midodrine (Proamatine) 5 mg tablet Take 1 tablet (5 mg) by mouth 3 times daily (morning, midday, late afternoon). Active 1 ml morphine sulfate 4 mg/ml prefilled syringe (2 sources) Opioid Agonist Start: 10-04-2024 End: 10-04-2024 4 mg, intravenous, Once, On Fri10/04/24 at 1525, For 1 dose nadolol 20 mg oral tablet (9 sources) beta-Adrenergic Tracey Start: 01-02-2025 End: 01-21-2025 omeprazole 20 mg delayed release oral capsule (6 sources) Proton Pump Inhibitor Start: 01-28-2025 End: 02-16-2025 ondansetron 4 mg disintegrating oral tablet (3 sources) Serotonin-3 Receptor Antagonist Start: 10-04-2024 End: 10-04-2024 take 4 mg by mouth once 4 mg, oral, Once, On Fri10/04/24 at 2115, For 1 dose Start: 10-04-2024 End: 10-04-2024 4 mg, intravenous, Once, On Fri10/04/24 at 1525, For 1 dose, When administering via IV Push, administer over 3-5 minutes. oxyCODONE hydrochloride 5 mg oral tablet (19 sources) Opioid Agonist Start: 01-21-2025 End: 02-16-2025 Start: 10-04-2024 End: 10-04-2024 take 5 mg [...] Suspended vancomycin 125 mg oral capsu le (14 sources) Glycopeptide Antibacterial Start: 12-02-2024 End: 01-05-2025 [...] [Alcoholic cirrhosis of liver with ascites] Onset: 02-17-2025 Chronic Chronic kidney disease (11 sources) Chronic kidney disease; Translations: [Chronic kidney disease, unspecified] Onset: 11-11-2024 11-11-2024 Chronic Coagulation and hemorrhagic disorders (14 sources) Blood coagulation disorder; Translations: [Coagulation defect, unspecified] Onset: 10-04-2024 10-04-2024 Chronic Deficiency and other anemia (11 sources) Anemia; Translations: [Anemia, unspecified] Onset: 11-11-2024 11-11-2024 Episodic Deficiency and other anemia (3 sources) Anemia, unspecified; Translations: [Anemia, unspecified type] Onset: 11-11-2024 Episodic Deficiency and other anemia (4 sources) Chronic anemia; Translations: [Anemia, unspecified] 02-16-2025 Episodic Diabetes mellitus without complication (15 sources) Insulin treated type 2 diabetes mellitus; Translations: [Type 2 diabetes mellitus without complications] 12-30-2024 Chronic Diabetes mellitus without complication (11 sources) Hyperglycemia; Translations: [Hyperglycemia, unspecified] 12-30-2024 Episodic [...] Onset: 11-11-2024 09-05-2024 Episodic Nonspecific chest pain (12 sources) Chest pain; Translations: [Chest pain, unspecified] [...] and ureter, unspecified] 09-23-2024 Episodic Other fractures (16 sources) Compression fracture of thoracic spine; Translations: [...] ascites] Onset: 10-04-2024 Episodic Other gastrointestinal disorders (20 sources) [...] disease, unspecified; Translations: [Liver disease, unspecified] Onset: 02-21-2025 Chronic Other liver diseases (20 sources) Hepatic encephalopathy; Translations: [Hepatic encephalopathy] Onset: 01-31-2025 09-10-2024 Episodic Other liver diseases (4 sources) Elevated liver enzymes level; Translations: [Abnormal levels of other serum enzymes] 02-16-2025 Episodic Other liver diseases (2 sources) Decompensated cirrhosis of liver; Translations: [Hepatic failure, unspecified without coma] 02-16-2025 Episodic Other liver diseases (2 sources) Hepatic failure, unspecified without coma; Translations: [Hepatic failure, unspecified without coma] Onset: 02-21-2025 Episodic Other liver diseases (2 sources) Abnormal levels of other serum enzymes; Translations: [Abnormal levels of other serum enzymes] Onset: 02-17-2025 Episodic Other nervous system disorders (20 sources) [...] Chronic Other nutritional; endocrine; and metabolic disorders (4 sources) Hyperammonemia; Translations: [Disorder of urea cycle metabolism, unspecified] 02-16-2025 Chronic Other nutritional; endocrine; and metabolic disorders (2 sources) Disorder of urea cycle metabolism, unspecified; Translations: [Disorder of urea cycle metabolism, unspecified] Onset: 02-17-2025 Chronic Other nutritional; endocrine; and metabolic disorders (1 source) Obesity, unspecified; Translations: [Obesity, unspecified] Onset: 09-17-2024 Chronic Other nutritional; endocrine; and metabolic disorders (4 sources) H/O: diabetes mellitus; Translations: [Personal history [...] Onset: 09-10-2024 09-23-2024 Episodic Superficial injury; contusion (18 sources) Contusion of lower back; Translations: [Contusion [...] unspecified] Onset: 09-17-2024 Episodic Other gastrointestinal disorders (1 source) Diarrhea, [...] Test Name Value Interpretation Reference Range Facility Hepatitis Panel Acute 02-01 COMMENT Comment Normal . [facility] Comment on above: Result Comment: Not infected with HCV unless early or acute infection issuspected (which may be delayed in an immunocompromisedindividual), or other evidence exists to indicate HCVinfection.Performed at: [facility] [address] [id number] Director: Buck Ivy PhD, Phone: [phone] Performed By: #### L 100.0100, L500.4050, L3000.0375, L503.5510 ####[facility] [address] [place], [address] HEP B CORE,IgM Negative Normal Negative [facility] Comment on above: Performed By: #### L 100.0100, L500.4050, L3000.0375, L503.5510 ####[facility] [address] [place], [address] HEP B SURF AG Negative Normal Negative [facility] Comment on above: Performed By: #### L 100.0100, L500.4050, L3000.0375, L503.5510 ####[facility] [address] [place], [address] HEP C VIRUS AB Non-Reactive Normal Non Reactive [facility] Comment on above: Performed By: #### L 100.0100, L500.4050, L3000.0375, L503.5510 ####[facility] [address] [place], [address] HEPATITIS A-IgM Negative Normal Negative [facility] Comment on above: Result Comment: A ne gative anti-HAV IgM result suggests no recent orcurrent HAV infection. Performed By: #### L 100.0100, L500.4050, L3000.0375, L503.5510 ####[facility] [address] [place], [address] Anion gap in Serum or Plasma Ordered By: Jae Ash on 02-17-2025 Anion gap [Moles/Vol] 10 mmol/L 12-16 [facility] BUN/creatinine ratioOrdered By: Jae Ash on 02-17-2025 Urea nitrogen/Creatinine [Mass ratio] 9.7 mg/mg Low - [facility] Bedside Glucoseon 02-17-2025 FINGERSTICK GLU 194 mg/dL High 74-106 [facility] Comment on above: Result Comment: BRISA MOROCHO OF PATIENT CARE PER NURSING PROTOCOL Performed By: #### L 501.080 ####[facility] [address] [place], [address] Bilirubin, totalOrdered By: Jae Ash on 02-17-2025 Bilirubin [Mass/Vol] 6.79 mg/dL High 0.00-1.30 [facility] Blood manual differential co mment interpretation (narrative result)Ordered By: Jae Ash on 02-17-2025 Manual differential comment Marco Antonio (Bld) [Interp] SCANNED [facility] CBC-Complete Blood Cnt No Di ffon 02-17-2025 Erythrocyte distribution width (RBC) [Ratio] 19.0 % High 11.6-14.6 [facility] Comment on above: Performed By: #### L 100.0500, L500.4050, L100.4500, L300.3900 ####[facility] [address] [place], [address] Hematocrit (Bld) [Volume fraction] 21.9 % Low 40-54 [facility] Comment on above: Performed By: #### L 100.0500, L500.4050, L100.4500, L300.3900 ####[facility] [address] [place], [address] Hemoglobin (Bld) [Mass/Vol] 7.7 g/dL Low 13.0-16.5 [facility] Comment on above: Performed By: #### L 100.0500, L500.4050, L100.4500, L300.3900 ####[facility] [address] [place], [address] MCH (RBC) [Entitic mass] 30.0 pg Normal 27.0-32.0 [facility] Comment on above: Performed By: #### L 100.0500, L500.4050, L100.4500, L300.3900 ####[facility] [address] [place], [address] MCHC (RBC) [Mass/Vol] 35.2 g/dL Normal 32-36 [facility] Comment on above: Performed By: #### L 100.0500, L500.4050, L100.4500, L300.3900 ####[facility] [address] [place], [address] MCV (RBC) [Entitic vol] 85.2 fL Normal 80-94 [facility] Comment on above: Performed By: #### L 100.0500, L500.4050, L100.4500, L300.3900 ####[facility] [address] [place], [address] Platelet mean volume (Bld) [Entitic vol] 11.7 fL Normal 6.2-12.0 [facility] Comment on above: Performed By: #### L 100.0500, L500.4050, L100.4500, L300.3900 ####[facility] [address] [place], [address] Platelets (Bld) [#/Vol] 90 10*3/uL Low 150-450 [facility] Comment on above: Performed By: #### L 100.0500, L500.4050, L100.4500, L300.3900 ####[facility] [address] [place], [address] RBC (Bld) [#/Vol] 2.57 10*6/uL Low 4.6-6.2 [facility] Comment on above: Performed By: #### L 100.0500, L500.4050, L100.4500, L300.3900 ####[facility] [address] [place], [address] RDW SD 51.1 fl High 35.1-43.9 [facility] Comment on above: Performed By: #### L 100.0500, L500.4050, L100.4500, L300.3900 ####[facility] [address] [place], [address] WBC (Bld) [#/Vol] 8.5 10*3/uL Normal 4.4-11.0 [facility] Comment on above: Performed By: #### L 100.0500, L500.4050, L100.4500, L300.3900 ####[facility] [address] [place], [address] Carbon dioxide, total [Moles /volume] in Central venous bloodOrdered By: Jae Ash on 02-17-2025 CO2 [Moles/Vol] 22.1 mmol/L 21.0-32.0 [facility] Chloride assayOrdered By: Sky Ash on 02-17-2025 Chloride [Moles/Vol] 100 mmol/L 98-108 [facility] Comprehensive Metabolic Prof ilon 02-17-2025 Albumin [Mass/Vol] 2.1 g/dL Low 3.5-5.0 [facility] Comment on above: Performed By: #### L 100.0500, L500.4050, L100.4500, L300.3900 ####[facility] [address] [place], [address] Albumin/Globulin [Mass ratio] 0.7 {ratio} Low 0.9-2.4 [facility] Comment on above: Performed By: #### L 100.0500, L500.4050, L100.4500, L300.3900 ####[facility] [address] [place], [address] ALK PHOS 278 U/L High 40-129 [facility] Comment on above: Performed By: #### L 100.0500, L500.4050, L100.4500, L300.3900 ####[facility] [address] [place], [address] ALT [Catalytic activity/Vol] 46 U/L Normal <=46 [facility] Comment on above: Performed By: #### L 100.0500, L500.4050, L100.4500, L300.3900 ####[facility] [address] [place], [address] AST [Catalytic activity/Vol] 99 U/L High <=37 [facility] Comment on above: Result Comment: Hemo lysis present, Results??could be affected.?? Performed By: #### L 100.0500, L500.4050, L100.4500, L300.3900 ####[facility] [address] [place], [address] Bilirubin [Mass/Vol] 6.79 mg/dL High 0.00-1.30 [facility] Comment on above: Performed By: #### L 100.0500, L500.4050, L100.4500, L300.3900 ####[facility] [address] [place], [address] BUN/CRE 9.7 RATIO Low 10-20 [facility] Comment on above: Performed By: #### L 100.0500, L500.4050, L100.4500, L300.3900 ####[facility] [address] [place], [address] Calcium [Mass/Vol] 7.3 mg/dL Low 7.6-11.0 [facility] Comment on above: Performed By: #### L 100.0500, L500.4050, L100.4500, L300.3900 ####[facility] [address] [place], [address] Chloride [Moles/Vol] 100 mmol/L Normal 98-108 [facility] Comment on above: Performed By: #### L 100.0500, L500.4050, L100.4500, L300.3900 ####[facility] [address] [place], [address] CO2 [Moles/Vol] 22.1 mmol/L Normal 21.0-32.0 [facility] Comment on above: Performed By: #### L 100.0500, L500.4050, L100.4500, L300.3900 ####[facility] [address] [place], [address] Creatinine [Mass/Vol] 1.16 mg/dL Normal 0.70-1.20 [facility] Comment on above: Result Comment: Icte daquan present, Results may be affected. Performed By: #### L 100.0500, L500.4050, L100.4500, L300.3900 ####[facility] [address] [place], [address] ECRCL 79.19 ml/min Normal 50-250 [facility] Comment on above: Performed By: #### L 100.0500, L500.4050, L100.4500, L300.3900 ####[facility] [address] [place], [address] GAP 10 Normal 5-15 [facility] Comment on above: Performed By: #### L 100.0500, L500.4050, L100.4500, L300.3900 ####[facility] [address] [place], [address] GFR/1.73 sq M.predicted among non-blacks MDRD (S/P/Bld) [Vol rate/Area] 73 mL/min/{1.73_m2} Normal >60 [facility] Comment on above: Result Comment: mL/m in/1.73m2 CKD-EPI Creatinine Equation (2020) Performed By: #### L 100.0500, L500.4050, L100.4500, L300.3900 ####[facility] [address] [place], [address] Globulin (S) [Mass/Vol] 3.2 g/dL Normal 2.2-4.2 [facility] Comment on above: Performed By: #### L 100.0500, L500.4050, L100.4500, L300.3900 ####[facility] [address] [place], [address] Glucose [Mass/Vol] 246 mg/dL High 70-99 [facility] Comment on above: Performed By: #### L 100.0500, L500.4050, L100.4500, L300.3900 ####[facility] [address] [place], [address] Potassium [Moles/Vol] 3.6 mmol/L Normal 3.3-5.1 [facility] Comment on above: Result Comment: Hemo lysis present, Results??could be affected.?? Performed By: #### L 100.0500, L500.4050, L100.4500, L300.3900 ####[facility] [address] [place], [address] Sodium [Moles/Vol] 132 mmol/L Low 133-145 [facility] Comment on above: Performed By: #### L 100.0500, L500.4050, L100.4500, L300.3900 ####[facility] [address] [place], [address] T PROT 5.3 g/dL Low 5.9-8.4 [facility] Comment on above: Performed By: #### L 100.0500, L500.4050, L100.4500, L300.3900 ####[facility] [address] [place], [address] Urea nitrogen [Mass/Vol] 11 mg/dL Normal 4-19 [facility] Comment on above: Performed By: #### L 100.0500, L500.4050, L100.4500, L300.3900 ####[facility] [address] [place], [address] Differential Commenton 02-17 SMEAR COMMENT SCANNED Normal [facility] Comment on above: Result Comment: MODE RATE THROMBOCYTOPENIA NOTED Performed By: #### L 100.0500, L500.4050, L100.4500, L300.3900 ####[facility] [address] [place], [place], [address] Discharge Instructionon 02-01 Discharge Instruction Normal [facility] Erythrocyte distribution wid th ratioOrdered By: Jae Ash on 02-17-2025 Erythrocyte distribution width (RBC) [Ratio] 19.0 % High 11.6-14.6 [facility] Erythrocyte distribution wid th standard deviationOrdered By: Jae Ash on 02-17-2025 Erythrocyte distribution width (RBC) [Ratio] 51.1 fl High 35.1-43.9 [facility] Glomerular filtration rate ( GFR) estimation/1.73 sq m using serum, plasma, or whole bOrdered By: Jae Ash on 02-17-2025 GFR/1.73 sq M.predicted among non-blacks MDRD (S/P/Bld) [Vol rate/Area] 73 mL/min/{1.73_m2} >60 [facility]dered By: Anurag Irene on 02-17-2025 Glucose [Mass/Vol] 194 mg/dL High 74-106 [facility] Hematocrit Auto (Bld) [Volum e fraction]Ordered By: Jae Ahs on 02-17-2025 Hematocrit (Bld) [Volume fraction] 21.9 % Low 40-54 [facility] Hemoglobin measurementOrdere d By: Jae Ash on 02-17-2025 Hemoglobin (Bld) [Mass/Vol] 7.7 g/dL Low 13.0-16.5 [facility] MCV (mean corpuscular volume ) determinationOrdered By: Jae Ash on 02-17-2025 MCV (RBC) [Entitic vol] 85.2 fL 80-94 [facility] MR/CON.PCM.GIon 02-17-2025 MR/CON.PCM.GI Normal [facility] Mean corpuscular hemoglobin (MCH) determinationOrdered By: Jae Ash on 02-17-2025 MCH (RBC) [Entitic mass] 30.0 pg 27.0-32.0 [facility] No Panel InformationOrdered By: Jae Ash on 02-17-2025 99 U/L High <38 [facility] Platelet countOrdered By: Sky Ash on 02-17-2025 Platelets (Bld) [#/Vol] 90 10*3/uL Low 150-450 [facility] Potassium measurement (mass/ volume)Ordered By: Jae Ash on 02-17-2025 Potassium (Unsp spec) [Mass/Vol] 3.6 mmol/L 3.3-5.1 [facility] Prothrombin Time w/INRon INR Coag (PPP) [Relative time] 2.0 {INR} Normal [facility] Comment on above: Performed By: #### L 100.0500, L500.4050, L100.4500, L300.3900 ####[facility] [address] [place], [address] PT Coag (PPP) [Time] 22.8 s High 11.7-14.9 [facility] Comment on above: Performed By: #### L 100.0500, L500.4050, L100.4500, L300.3900 ####[facility] [address] [place], [address] Prothrombin timeOrdered By: Jae Ash on 02-17-2025 PT Coag (PPP) [Time] 22.8 s High 11.7-14.9 [facility] RBC Auto (Bld) [#/Vol]Ordere d By: Jae Ash on 02-17-2025 RBC (Bld) [#/Vol] 2.57 10*6/uL Low 4.6-6.2 [facility] Serum creatinine measurement (mass/volume)Ordered By: Jae Ash on 02-17-2025 Creatinine [Mass/Vol] 1.16 mg/dL 0.70-1.20 [facility] Serum globulin measurementOr dered By: Jae Ash on 02-17-2025 Globulin (S) [Mass/Vol] 3.2 g/dL 2.2-4.2 [facility] Serum glucose measurement (m ass/volume)Ordered By: Jae Ash on 02-17-2025 Glucose [Mass/Vol] 246 mg/dL High 70-99 [facility] Serum or plasma alanine thomas otransferase (ALT) measurementOrdered By: Jae Ash on 02-17-2025 ALT [Catalytic activity/Vol] 46 U/L <47 [facility] Serum or plasma albumin roosevelt urement (mass/volume)Ordered By: Jae Ash on 02-17-2025 Albumin [Mass/Vol] 2.1 g/dL Low 3.5-5.0 [facility] Serum or plasma albumin/glob ulin mass ratioOrdered By: Jae Ash on 02-17-2025 Albumin/Globulin [Mass ratio] 0.7 {ratio} Low 0.9-2.4 [facility] Serum or plasma alkaline kendrick sphatase measurementOrdered By: Jae Ash on 02-17-2025 ALP [Catalytic activity/Vol] 278 U/L High 40-129 [facility] Serum or plasma calcium roosevelt urement (mass/volume)Ordered By: Jae Ash on 02-17-2025 Calcium [Mass/Vol] 7.3 mg/dL Low 7.6-11.0 [facility] Serum or plasma urea nitroge n measurement (mass/volume)Ordered By: Jae Ash on 02-17-2025 Urea nitrogen [Mass/Vol] 11 mg/dL 4-19 [facility] Sodium levelOrdered By: Pasha Ash on 02-17-2025 Sodium [Moles/Vol] 132 mmol/L Low 133-145 [facility] Total proteinOrdered By: Diane Ash on 02-17-2025 Protein [Mass/Vol] 5.3 g/dL Low 5.9-8.4 [facility] White blood cell (WBC) count Ordered By: Jae Ash on 02-17-2025 WBC (Bld) [#/Vol] 8.5 10*3/uL 4.4-11.0 [facility] Absolute lymphocyte countOrd ered By: Jerald Sherwood on 02-16-2025 Lymphocytes Auto (Unsp spec) [#/Vol] 1.28 10*3/uL 0.83-4.51 [facility] Anion gap in Serum or Plasma Ordered By: Jerald Sherwood on 02-16-2025 Anion gap [Moles/Vol] 12 mmol/L 5-15 [facility] Automated lymphocyte count a s percentage of total leukocytesOrdered By: Jerald Sherwood on 02-16-2025 Lymphocytes/100 WBC Auto (Unsp spec) 15.1 % Low 19-41 [facility] BUN/creatinine ratioOrdered By: Jerald Sherwood on 02-16-2025 Urea nitrogen/Creatinine [Mass ratio] 9.4 mg/mg Low 10-20 [facility] Basophil percentageOrdered B y: Jerald Sherwood on 02-16-2025 Basophils/100 WBC (Bld) 0.5 % 0-1 [facility] Bedside Glucoseon 02-16-2025 FINGERSTICK GLU 216 mg/dL High 74-106 [facility] Comment on above: Result Comment: BRISA MROOCHO OF PATIENT CARE PER NURSING PROTOCOL Performed By: #### L 501.080 ####[facility] [address] [place], [address] Bilirubin directOrdered By: Jae Ash on 02-16-2025 Bilirubin.direct [Mass/Vol] 5.10 mg/dL High 0.00-0.30 [facility] Bilirubin, Directon 02-17-20 25 Bilirubin.direct [Mass/Vol] 5.10 mg/dL High 0.00-0.30 [facility] Comment on above: Performed By: #### L 504.2610, L501.4700 ####[facility] [address] [place], [address] Bilirubin, totalOrdered By: Jerald Sherwood on 07-16-2025 Bilirubin [Mass/Vol] 7.29 mg/dL High 0.00-1.30 [facility] CBC W/Diff, Automatedon -08 09-2024 Absolute Lymph 1.28 X10 3/uL Normal 0.83-4.51 [facility] Comment on above: Performed By: #### L 100.0100, L500.4050, L3000.0375, L503.5510 ####[facility] [address] [place], [address] Absolute Neut 5.7 X10 3/uL Normal 2.0-7.7 [facility] Comment on above: Performed By: #### L 100.0100, L500.4050, L3000.0375, L503.5510 ####[facility] [address] [place], [address] Basophils/100 WBC (Bld) 0.5 % Normal 0-1 [facility] Comment on above: Performed By: #### L 100.0100, L500.4050, L3000.0375, L503.5510 ####[facility] [address] [place], [address] Eosinophils/100 WBC (Bld) 5.4 % High 0-5 [facility] Comment on above: Performed By: #### L 100.0100, L500.4050, L3000.0375, L503.5510 ####[facility] [address] [place], [address] Erythrocyte distribution width (RBC) [Ratio] 18.7 % High 11.6-14.6 [facility] Comment on above: Performed By: #### L 100.0100, L500.4050, L3000.0375, L503.5510 ####[facility] [address] [place], [address] Hematocrit (Bld) [Volume fraction] 24.8 % Low 40-54 [facility] Comment on above: Performed By: #### L 100.0100, L500.4050, L3000.0375, L503.5510 ####[facility] [address] [place], [address] Hemoglobin (Bld) [Mass/Vol] 8.2 g/dL Low 13.0-16.5 [facility] Comment on above: Performed By: #### L 100.0100, L500.4050, L3000.0375, L503.5510 ####[facility] [address] [place], [address] IG% 0.200 Normal 0.0-0.9 [facility] Comment on above: Result Comment: IG% - Immature Granulocytes (promyelocytes, myelocytes andmetamyelocytes) > 1% indicates that a LEFT SHIFT is Present. Performed By: #### L 100.0100, L500.4050, L3000.0375, L503.5510 ####[facility] [address] [place], [address] Lymphocytes/100 WBC (Bld) 15.1 % Low 19-41 [facility] Comment on above: Performed By: #### L 100.0100, L500.4050, L3000.0375, L503.5510 ####[facility] [address] [place], [address] MCH (RBC) [Entitic mass] 28.9 pg Normal 27.0-32.0 [facility] Comment on above: Performed By: #### L 100.0100, L500.4050, L3000.0375, L503.5510 ####[facility] [address] [place], [address] MCHC (RBC) [Mass/Vol] 33.1 g/dL Normal 32-36 [facility] Comment on above: Performed By: #### L 100.0100, L500.4050, L3000.0375, L503.5510 ####[facility] [address] [place], [address] MCV (RBC) [Entitic vol] 87.3 fL Normal 80-94 [facility] Comment on above: Performed By: #### L 100.0100, L500.4050, L3000.0375, L503.5510 ####[facility] [address] [place], [address] Monocytes/100 WBC (Bld) 11.7 % High 0-10 [facility] Comment on above: Performed By: #### L 100.0100, L500.4050, L3000.0375, L503.5510 ####[facility] [facility] [address] [place], [address] Neutrophils/100 WBC (Bld) 67.1 % Normal 47-70 [facility] Comment on above: Performed By: #### L 100.0100, L500.4050, L3000.0375, L503.5510 ####[facility] [address] [place], [address] Nucleated RBC (Bld) [#/Vol] 0 10*3/uL Normal 0-5 [facility] Comment on above: Performed By: #### L 100.0100, L500.4050, L3000.0375, L503.5510 ####[facility] [address] [place], [address] Platelet mean volume (Bld) [Entitic vol] 12.0 fL Normal 6.2-12.0 [facility] Comment on above: Performed By: #### L 100.0100, L500.4050, L3000.0375, L503.5510 ####[facility] [address] [place], [address] Platelets (Bld) [#/Vol] 106 10*3/uL Low 150-450 [facility] Comment on above: Performed By: #### L 100.0100, L500.4050, L3000.0375, L503.5510 ####[facility] [address] [place], [address] RBC (Bld) [#/Vol] 2.84 10*6/uL Low 4.6-6.2 [facility] Comment on above: Performed By: #### L 100.0100, L500.4050, L3000.0375, L503.5510 ####[facility] [address] [place], [address] RDW SD 53.5 fl High 35.1-43.9 [facility] Comment on above: Performed By: #### L 100.0100, L500.4050, L3000.0375, L503.5510 ####[facility] [address] [place], [address] WBC (Bld) [#/Vol] 8.5 10*3/uL Normal 4.4-11.0 [facility] Comment on above: Performed By: #### L 100.0100, L500.4050, L3000.0375, L503.5510 ####[facility] [address] [place], [address] Carbon dioxide, total [Moles /volume] in Central venous bloodOrdered By: Jerald Sherwood on 02-16-2025 CO2 [Moles/Vol] 24.1 mmol/L 21.0-32.0 [facility] Chloride assayOrdered By: Paulette Sherwood on 02-16-2025 Chloride [Moles/Vol] 99 mmol/L 98-108 [facility] Comprehensive Metabolic Prof ilon 02-16-2025 Albumin [Mass/Vol] 2.3 g/dL Low 3.5-5.0 [facility] Comment on above: Performed By: #### L 100.0100, L500.4050, L3000.0375, L503.5510 ####[facility] [address] [place], [address] Albumin/Globulin [Mass ratio] 0.7 {ratio} Low 0.9-2.4 [facility] Comment on above: Performed By: #### L 100.0100, L500.4050, L3000.0375, L503.5510 ####[facility] [address] [place], [address] ALK PHOS 310 U/L High 40-129 [facility] Comment on above: Performed By: #### L 100.0100, L500.4050, L3000.0375, L503.5510 ####[facility] [address] [place], [address] ALT [Catalytic activity/Vol] 51 U/L High <=46 [facility] Comment on above: Performed By: #### L 100.0100, L500.4050, L3000.0375, L503.5510 ####[facility] [address] [place], [address] AST [Catalytic activity/Vol] 109 U/L High <=37 [facility] Comment on above: Performed By: #### L 100.0100, L500.4050, L3000.0375, L503.5510 ####[facility] [address] [place], [address] Bilirubin [Mass/Vol] 7.29 mg/dL High 0.00-1.30 [facility] Comment on above: Performed By: #### L 100.0100, L500.4050, L3000.0375, L503.5510 ####[facility] [address] [place], [address] BUN/CRE 9.4 RATIO Low 10-20 [facility] Comment on above: Performed By: #### L 100.0100, L500.4050, L3000.0375, L503.5510 ####[facility] [address] [place], [address] Calcium [Mass/Vol] 7.8 mg/dL Normal 7.6-11.0 [facility] Comment on above: Performed By: #### L 100.0100, L500.4050, L3000.0375, L503.5510 ####[facility] [address] [place], [address] Chloride [Moles/Vol] 99 mmol/L Normal 98-108 [facility] Comment on above: Performed By: #### L 100.0100, L500.4050, L3000.0375, L503.5510 ####[facility] [address] [place], [address] CO2 [Moles/Vol] 24.1 mmol/L Normal 21.0-32.0 [facility] Comment on above: Performed By: #### L 100.0100, L500.4050, L3000.0375, L503.5510 ####[facility] [address] [place], [address] Creatinine [Mass/Vol] 1.30 mg/dL High 0.70-1.20 [facility] Comment on above: Result Comment: Icte daquan present, Results may be affected. Performed By: #### L 100.0100, L500.4050, L3000.0375, L503.5510 ####[facility] [address] [place], [address] GAP 12 Normal 5-15 [facility] Comment on above: Performed By: #### L 100.0100, L500.4050, L3000.0375, L503.5510 ####[facility] [address] [place], [address] GFR/1.73 sq M.predicted among non-blacks MDRD (S/P/Bld) [Vol rate/Area] 64 mL/min/{1.73_m2} Normal >60 [facility] Comment on above: Result Comment: mL/m in/1.73m2 CKD-EPI Creatinine Equation (2020) Performed By: #### L 100.0100, L500.4050, L3000.0375, L503.5510 ####[facility] [address] [place], [address] Globulin (S) [Mass/Vol] 3.5 g/dL Normal 2.2-4.2 [facility] Comment on above: Performed By: #### L 100.0100, L500.4050, L3000.0375, L503.5510 ####[facility] [address] [place], [address] Glucose [Mass/Vol] 250 mg/dL High 70-99 [facility] Comment on above: Performed By: #### L 100.0100, L500.4050, L3000.0375, L503.5510 ####[facility] [address] [place], [address] Potassium [Moles/Vol] 3.1 mmol/L Low 3.3-5.1 [facility] Comment on above: Performed By: #### L 100.0100, L500.4050, L3000.0375, L503.5510 ####[facility] [address] [place], [address] Sodium [Moles/Vol] 135 mmol/L Normal 133-145 [facility] Comment on above: Performed By: #### L 100.0100, L500.4050, L3000.0375, L503.5510 ####[facility] [address] [place], [address] T PROT 5.8 g/dL Low 5.9-8.4 [facility] Comment on above: Performed By: #### L 100.0100, L500.4050, L3000.0375, L503.5510 ####[facility] [address] [place], [place], [address] Urea nitrogen [Mass/Vol] 12 mg/dL Normal 4-19 [facility] Comment on above: Performed By: #### L 100.0100, L500.4050, L3000.0375, L503.5510 ####[facility] [address] [place], [place], [address] Emergency Department Summary on 02-16-2025 Emergency Department Summary Normal [facility] Eosinophil percentageOrdered By: Jerald Sherwood on 02-16-2025 Eosinophils/100 WBC (Bld) 5.4 % High 0-5 [facility] Erythrocyte distribution wid th ratioOrdered By: Jerald Sherwood on 02-16-2025 Erythrocyte distribution width (RBC) [Ratio] 18.7 % High 11.6-14.6 [facility] Erythrocyte distribution wid th standard deviationOrdered By: Jerald Sherwood on 02-16-2025 Erythrocyte distribution width (RBC) [Ratio] 53.5 fl High 35.1-43.9 [facility] Glomerular filtration rate ( GFR) estimation/1.73 sq m using serum, plasma, or whole bOrdered By: Jerald Sherwood on 02-16-2025 GFR/1.73 sq M.predicted among non-blacks MDRD (S/P/Bld) [Vol rate/Area] 64 mL/min/{1.73_m2} >60 [facility] H AND P Exam - Hospitaliston 02-16-2025 H&P Exam - Hospitalist Normal [facility] Hematocrit Auto (Bld) [Volum e fraction]Ordered By: Jerald Sherwood on 02-16-2025 Hematocrit (Bld) [Volume fraction] 24.8 % Low 40-54 [facility] Hemoglobin measurementOrdere d By: Jerald Sherwood on 02-16-2025 Hemoglobin (Bld) [Mass/Vol] 8.2 g/dL Low 13.0-16.5 [facility] Immature granulocytes/100 WB C Auto (Bld)Ordered By: Jerald Sherwood on 02-16-2025 Immature granulocytes/100 WBC (Bld) 0.200 % 0.0-0.9 [facility] LDHon 02-16-2025 LDH 273 U/L High 87-241 [facility] Comment on above: Performed By: #### L 504.2610, L501.4700 ####[facility] [address] [place], [address] MCV (mean corpuscular volume ) determinationOrdered By: Jerald Sherwood on 02-16-2025 MCV (RBC) [Entitic vol] 87.3 fL 80-94 [facility] Magnesiumon 02-16-2025 Magnesium [Mass/Vol] 1.3 mg/dL Low 1.5-2.2 [facility] Comment on above: Performed By: #### L 501.2300, L501.5200 ####[facility] [address] [place], [place], [address] Magnesium measurement (mass/ volume)Ordered By: Jae Ash on 02-16-2025 Magnesium (Unsp spec) [Mass/Vol] 1.3 mg/dL Low 1.5-2.2 [facility] Mean corpuscular hemoglobin (MCH) determinationOrdered By: Jerald Sherwood on 02-16-2025 MCH (RBC) [Entitic mass] 28.9 pg 27.0-32.0 [facility] Monocyte percentageOrdered B y: Jerald Sherwood on 02-16-2025 Monocytes/100 WBC (Bld) 11.7 % High 0-10 [facility] Neutrophil percentageOrdered By: Jerald Sherwood on 02-16-2025 Neutrophils/100 WBC (Bld) 67.1 % 47-70 [facility] No Panel InformationOrdered By: Jerald Sherwood on 02-16-2025 109 U/L High <38 [facility] Phosphoruson 02-16-2025 Phosphate [Mass/Vol] 2.3 mg/dL Low 2.7-4.5 [facility] Comment on above: Performed By: #### L 501.2300, L501.5200 ####[facility] [address] [place], [place], [address] Platelet countOrdered By: Paulette Sherwood on 02-16-2025 Platelets (Bld) [#/Vol] 106 10*3/uL Low 150-450 [facility] Potassium measurement (mass/ volume)Ordered By: Jerald Sherwood on 02-16-2025 Potassium (Unsp spec) [Mass/Vol] 3.1 mmol/L Low 3.3-5.1 [facility] Prothrombin Time w/INRon INR Coag (PPP) [Relative time] 1.8 {INR} Normal [facility] Comment on above: Performed By: #### L 300.3900 ####[facility] [address] [place], [place], [id number](629) PT Coag (PPP) [Time] 21.1 s High 11.7-14.9 [facility] Comment on above: Performed By: #### L 300.3900 ####[facility] [address] [place], [place], [address] RBC Auto (Bld) [#/Vol]Ordere d By: Jerald Sherwood on 02-16-2025 RBC (Bld) [#/Vol] 2.84 10*6/uL Low 4.6-6.2 [facility] Serum creatinine measurement (mass/volume)Ordered By: Jerald Sherwood on 02-16-2025 Creatinine [Mass/Vol] 1.30 mg/dL High 0.70-1.20 [facility] Serum globulin measurementOr dered By: Jerald Sherwood on 02-16-2025 Globulin (S) [Mass/Vol] 3.5 g/dL 2.2-4.2 [facility] Serum glucose measurement (m ass/volume)Ordered By: Jerald Sherwood on 02-16-2025 Glucose [Mass/Vol] 250 mg/dL High 70-99 [facility] Serum or plasma alanine thomas otransferase (ALT) measurementOrdered By: Jerald Sherwood on 02-16-2025 ALT [Catalytic activity/Vol] 51 U/L High <47 [facility] Serum or plasma albumin roosevelt urement (mass/volume)Ordered By: Jerald Sherwood on 02-16-2025 Albumin [Mass/Vol] 2.3 g/dL Low 3.5-5.0 [facility] Serum or plasma albumin/glob ulin mass ratioOrdered By: Jerald Sherwood on 02-16-2025 Albumin/Globulin [Mass ratio] 0.7 {ratio} Low 0.9-2.4 [facility] Serum or plasma alkaline kendrick sphatase measurementOrdered By: Jerald Sherwood on 02-16-2025 ALP [Catalytic activity/Vol] 310 U/L High 40-129 [facility] Serum or plasma calcium roosevelt urement (mass/volume)Ordered By: Jerald Sherwood on 02-16-2025 Calcium [Mass/Vol] 7.8 mg/dL 7.6-11.0 [facility] Serum or plasma urea nitroge n measurement (mass/volume)Ordered By: Jerald Sherwood on 02-16-2025 Urea nitrogen [Mass/Vol] 12 mg/dL 4-19 [facility] Sodium levelOrdered By: Jerald Sherwood on 02-16-2025 Sodium [Moles/Vol] 135 mmol/L 133-145 [facility] Total proteinOrdered By: Candie Sherwood on 02-16-2025 Protein [Mass/Vol] 5.8 g/dL Low 5.9-8.4 [facility] Venous blood ammonia measure mentOrdered By: Jerald Sherwood on 02-16-2025 Ammonia (P) [Moles/Vol] 88.0 umol/L High 16-60 [facility] Comment on above: Performed By: #### L 100.0100, L500.4050, L3000.0375, L503.5510 ####[facility] [address] [place], [place], [id number] White blood cell (WBC) count Ordered By: Jerald Sherwood on 02-16-2025 WBC (Bld) [#/Vol] 8.5 10*3/uL 4.4-11.0 [facility] Abdomen/Pelvis W IV Cont ONL Yon 02-13-2025 Abdomen/Pelvis W IV Cont ONLY Normal [facility] Absolute lymphocyte countOrd ered By: Luis Carlos Anderson on 02-13-2025 Lymphocytes Auto (Unsp spec) [#/Vol] 1.20 10*3/uL 0.83-4.51 [facility] Anion gap in Serum or Plasma Ordered By: Luis Carlos Anderson on 02-13-2025 Anion gap [Moles/Vol] 14 mmol/L 5-15 [facility] Automated lymphocyte count a s percentage of total leukocytesOrdered By: Luis Carlos Anderson on 02-13-2025 Lymphocytes/100 WBC Auto (Unsp spec) 13.9 % Low 19-41 [facility] BUN/creatinine ratioOrdered By: Luis Carlos Anderson on 02-13-2025 Urea nitrogen/Creatinine [Mass ratio] 14.3 mg/mg 10-20 [facility] Basophil percentageOrdered B y: Luis Carlos Anderson on 02-13-2025 Basophils/100 WBC (Bld) 0.3 % 0-1 [facility] Bilirubin, totalOrdered By: Luis Carlos Anderson on 02-13-2025 Bilirubin [Mass/Vol] 6.20 mg/dL High 0.00-1.30 [facility] Blood manual differential co mment interpretation (narrative result)Ordered By: Luis Carlos Anderson on 02-13-2025 Manual differential comment Marco Antonio (Bld) [Interp] SCANNED [facility] CBC W/Diff, Automatedon 02-01 PLT EST MOD DEC Normal ADEQ [facility] Comment on above: Performed By: #### L 100.0100, L500.4050, L501.2450 ####[facility] [address] [place], [address] Platelet mean volume (Bld) [Entitic vol] 10.8 fL Normal 6.2-12.0 [facility] Comment on above: Performed By: #### L 100.0100, L500.4050, L501.2450 ####[facility] [address] [place], [address] Platelets (Bld) [#/Vol] 83 10*3/uL Low 150-450 [facility] Comment on above: Result Comment: NO C LUMPING SEEN Performed By: #### L 100.0100, L500.4050, L501.2450 ####[facility] [address] [place], [address] SMEAR COMMENT SCANNED Normal [facility] Comment on above: Performed By: #### L 100.0100, L500.4050, L501.2450 ####[facility] [address] [place], [address] Carbon dioxide, total [Moles /volume] in Central venous bloodOrdered By: Luis Carlos Anderson on 02-13-2025 CO2 [Moles/Vol] 18.4 mmol/L Low 21.0-32.0 [facility] Chloride assayOrdered By: Yaya Anderson on 02-13-2025 Chloride [Moles/Vol] 102 mmol/L 98-108 [facility] Comprehensive Metabolic Prof ilon 02-13-2025 Albumin [Mass/Vol] 2.2 g/dL Low 3.5-5.0 [facility] Comment on above: Performed By: #### L 100.0100, L500.4050, L501.2450 ####[facility] [address] [place], [address] Albumin/Globulin [Mass ratio] 0.6 {ratio} Low 0.9-2.4 [facility] Comment on above: Performed By: #### L 100.0100, L500.4050, L501.2450 ####[facility] [address] [place], [address] ALK PHOS 335 U/L High 40-129 [facility] Comment on above: Performed By: #### L 100.0100, L500.4050, L501.2450 ####[facility] [address] [place], [address] ALT [Catalytic activity/Vol] 53 U/L High <=46 [facility] Comment on above: Performed By: #### L 100.0100, L500.4050, L501.2450 ####[facility] [address] [place], [address] AST [Catalytic activity/Vol] 120 U/L High <=37 [facility] Comment on above: Performed By: #### L 100.0100, L500.4050, L501.2450 ####[facility] [address] [place], [address] Bilirubin [Mass/Vol] 6.20 mg/dL High 0.00-1.30 [facility] Comment on above: Performed By: #### L 100.0100, L500.4050, L501.2450 ####[facility] [address] [place], [address] BUN/CRE 14.3 RATIO Normal 10-20 [facility] Comment on above: Performed By: #### L 100.0100, L500.4050, L501.2450 ####[facility] [address] [place], [address] Calcium [Mass/Vol] 8.3 mg/dL Normal 7.6-11.0 [facility] Comment on above: Performed By: #### L 100.0100, L500.4050, L501.2450 ####[facility] [address] [place], [address] Chloride [Moles/Vol] 102 mmol/L Normal 98-108 [facility] Comment on above: Performed By: #### L 100.0100, L500.4050, L501.2450 ####[facility] [address] [place], [address] CO2 [Moles/Vol] 18.4 mmol/L Low 21.0-32.0 [facility] Comment on above: Performed By: #### L 100.0100, L500.4050, L501.2450 ####[facility] [address] [place], [address] Creatinine [Mass/Vol] 1.78 mg/dL High 0.70-1.20 [facility] Comment on above: Result Comment: Icte daquan present, Results may be affected. Performed By: #### L 100.0100, L500.4050, L501.2450 ####[facility] [address] [place], [address] ECRCL 53.12 ml/min Normal 50-250 [facility] Comment on above: Performed By: #### L 100.0100, L500.4050, L501.2450 ####[facility] [address] [place], [address] GAP 14 Normal 5-15 [facility] Comment on above: Performed By: #### L 100.0100, L500.4050, L501.2450 ####[facility] [address] [place], [address] GFR/1.73 sq M.predicted among non-blacks MDRD (S/P/Bld) [Vol rate/Area] 44 mL/min/{1.73_m2} Low >60 [facility] Comment on above: Result Comment: mL/m in/1.73m2 CKD-EPI Creatinine Equation (2020) Performed By: #### L 100.0100, L500.4050, L501.2450 ####[facility] [address] [place], [address] Globulin (S) [Mass/Vol] 3.7 g/dL Normal 2.2-4.2 [facility] Comment on above: Performed By: #### L 100.0100, L500.4050, L501.2450 ####[facility] [address] [place], [address] Glucose [Mass/Vol] 169 mg/dL High 70-99 [facility] Comment on above: Performed By: #### L 100.0100, L500.4050, L501.2450 ####[facility] [address] [place], [address] Potassium [Moles/Vol] 3.4 mmol/L Normal 3.3-5.1 [facility] Comment on above: Result Comment: Hemo lysis present, Results??could be affected.?? Performed By: #### L 100.0100, L500.4050, L501.2450 ####[facility] [address] [place], [address] Sodium [Moles/Vol] 135 mmol/L Normal 133-145 [facility] Comment on above: Performed By: #### L 100.0100, L500.4050, L501.2450 ####[facility] [address] [place], [address] T PROT 5.8 g/dL Low 5.9-8.4 [facility] Comment on above: Performed By: #### L 100.0100, L500.4050, L501.2450 ####[facility] [address] [place], [address] Urea nitrogen [Mass/Vol] 25 mg/dL High 4-19 [facility] Comment on above: Performed By: #### L 100.0100, L500.4050, L501.2450 ####[facility] [address] [place], [address] Emergency Department Summary on 02-13-2025 Emergency Department Summary Normal [facility] Eosinophil percentageOrdered By: Luis Carlos Anderson on 02-13-2025 Eosinophils/100 WBC (Bld) 5.1 % High 0-5 [facility] Erythrocyte distribution wid th ratioOrdered By: Luis Carlos Anderson on 02-13-2025 Erythrocyte distribution width (RBC) [Ratio] 17.4 % High 11.6-14.6 [facility] Erythrocyte distribution wid th standard deviationOrdered By: Luis Carlos Anderson on 02-13-2025 Erythrocyte distribution width (RBC) [Ratio] 52.3 fl High 35.1-43.9 [facility] Glomerular filtration rate ( GFR) estimation/1.73 sq m using serum, plasma, or whole bOrdered By: Luis Carlos Anderson on 02-13-2025 GFR/1.73 sq M.predicted among non-blacks MDRD (S/P/Bld) [Vol rate/Area] 44 mL/min/{1.73_m2} Low >60 [facility] Hematocrit Auto (Bld) [Volum e fraction]Ordered By: Luis Carlos Anderson on 02-13-2025 Hematocrit (Bld) [Volume fraction] 24.1 % Low 40-54 [facility] Hemoglobin measurementOrdere d By: Luis Carlos Anderson on 02-13-2025 Hemoglobin (Bld) [Mass/Vol] 8.3 g/dL Low 13.0-16.5 [facility] Immature granulocytes/100 WB C Auto (Bld)Ordered By: Luis Carlos Anderson on 02-13-2025 Immature granulocytes/100 WBC (Bld) 0.500 % 0.0-0.9 [facility] Lipaseon 02-13-2025 Lipase [Catalytic activity/Vol] 60 U/L Normal 13-75 [facility] Comment on above: Result Comment: Siddhartha bhat note:LIPASE revised reference range effective 22.New Lipase methodology. Expected to produce lower valuesthan the previous assay method.NEW Reference Range: 13 - 75 U/L Performed By: #### L 100.0100, L500.4050, L501.2450 ####[facility] [id number] [place], [address] MCV (mean corpuscular volume ) determinationOrdered By: Luis Carlos Anderson on 02-13-2025 MCV (RBC) [Entitic vol] 84.9 fL 80-94 [facility] Mean corpuscular hemoglobin (MCH) determinationOrdered By: Luis Carlos Anderson on 02-13-2025 MCH (RBC) [Entitic mass] 29.2 pg 27.0-32.0 [facility] Monocyte percentageOrdered B y: Luis Carlos Anderson on 02-13-2025 Monocytes/100 WBC (Bld) 16.1 % High 0-10 [facility] Neutrophil percentageOrdered By: Luis Carlos Anderson on 02-13-2025 Neutrophils/100 WBC (Bld) 64.1 % 47-70 [facility] No Panel InformationOrdered By: Luis Carlos Anderson on 02-13-2025 120 U/L High <38 [facility] Platelet countOrdered By: Yaya Anderson on 02-13-2025 Platelets (Bld) [#/Vol] 83 10*3/uL Low 150-450 [facility] Platelet estimateOrdered By: Luis Carlos Anderson on 02-13-2025 Platelets LM Ql (Bld) MOD DEC ADEQ [facility] Potassium measurement (mass/ volume)Ordered By: Luis Carlos Anderson on 02-13-2025 Potassium (Unsp spec) [Mass/Vol] 3.4 mmol/L 3.3-5.1 [facility] RBC Auto (Bld) [#/Vol]Ordere d By: Luis Carlos Anderson on 02-13-2025 RBC (Bld) [#/Vol] 2.84 10*6/uL Low 4.6-6.2 [facility] Serum creatinine measurement (mass/volume)Ordered By: Luis Carlos Anderson on 02-13-2025 Creatinine [Mass/Vol] 1.78 mg/dL High 0.70-1.20 [facility] Serum globulin measurementOr dered By: Luis Carlos Anderson on 02-13-2025 Globulin (S) [Mass/Vol] 3.7 g/dL 2.2-4.2 [facility] Serum glucose measurement (m ass/volume)Ordered By: Luis Carlos Anderson on 02-13-2025 Glucose [Mass/Vol] 169 mg/dL High 70-99 [facility] Serum or plasma alanine thomas otransferase (ALT) measurementOrdered By: Luis Carlos Anderson on 02-13-2025 ALT [Catalytic activity/Vol] 53 U/L High <47 [facility] Serum or plasma albumin roosevelt urement (mass/volume)Ordered By: Luis Carlos Anderson on 02-13-2025 Albumin [Mass/Vol] 2.2 g/dL Low 3.5-5.0 [facility] Serum or plasma albumin/glob ulin mass ratioOrdered By: Luis Carlos Anderson on 02-13-2025 Albumin/Globulin [Mass ratio] 0.6 {ratio} Low 0.9-2.4 [facility] Serum or plasma alkaline kendrick sphatase measurementOrdered By: Luis Carlos Anderson on 02-13-2025 ALP [Catalytic activity/Vol] 335 U/L High 40-129 [facility] Serum or plasma calcium roosevelt urement (mass/volume)Ordered By: Luis Carlos Anderson on 02-13-2025 Calcium [Mass/Vol] 8.3 mg/dL 7.6-11.0 [facility] Serum or plasma urea nitroge n measurement (mass/volume)Ordered By: Luis Carlos Anderson on 02-13-2025 Urea nitrogen [Mass/Vol] 25 mg/dL High 4-19 [facility] Sodium levelOrdered By: Yunior Anderson on 02-13-2025 Sodium [Moles/Vol] 135 mmol/L 133-145 [facility] Total proteinOrdered By: Joann Anderson on 02-13-2025 Protein [Mass/Vol] 5.8 g/dL Low 5.9-8.4 [facility] White blood cell (WBC) count Ordered By: Luis Carlos Anderson on 02-13-2025 WBC (Bld) [#/Vol] 8.6 10*3/uL 4.4-11.0 [facility] Operative Reporton Operative Report Normal [facility] Paracentesis with USon 02-11 Paracentesis with US Normal [facility] Emergency Department Summary on 02-08-2025 Emergency [address] Normal [facility] Abdomen/Pelvis W IV Cont ONL Yon 02-07-2025 Abdomen/Pelvis W IV Cont ONLY Normal [facility] Absolute lymphocyte countOrd ered By: ED PROVIDER on 02-07-2025 Lymphocytes Auto (Unsp spec) [#/Vol] 1.39 10*3/uL 0.83-4.51 [facility] Anion gap in Serum or Plasma Ordered By: ED PROVIDER on 02-07-2025 Anion gap [Moles/Vol] 9 mmol/L 5-15 [facility] Automated lymphocyte count a s percentage of total leukocytesOrdered By: ED PROVIDER on 02-07-2025 Lymphocytes/100 WBC Auto (Unsp spec) 12.8 % Low 19-41 [facility] BUN/creatinine ratioOrdered By: ED PROVIDER on 02-07-2025 Urea nitrogen/Creatinine [Mass ratio] 13.9 mg/mg 10-20 [facility] Basophil percentageOrdered B y: ED PROVIDER on 02-07-2025 Basophils/100 WBC (Bld) 0.5 % 0-1 [facility] Bilirubin, totalOrdered By: ED PROVIDER on 02-07-2025 Bilirubin [Mass/Vol] 1.92 mg/dL High 0.00-1.30 [facility] CBC W/Diff, Automatedon Absolute Lymph 1.39 X10 3/uL Normal 0.83-4.51 [facility] Comment on above: Performed By: #### L 100.0100, L501.2450, L500.4050 ####[facility] [address] [place], [address] Absolute Neut 7.9 X10 3/uL High 2.0-7.7 [facility] Comment on above: Performed By: #### L 100.0100, L501.2450, L500.4050 ####[facility] [address] [place], [address] Basophils/100 WBC (Bld) 0.5 % Normal 0-1 [facility] Comment on above: Performed By: #### L 100.0100, L501.2450, L500.4050 ####[facility] [address] [place], [address] Eosinophils/100 WBC (Bld) 5.4 % High 0-5 [facility] Comment on above: Performed By: #### L 100.0100, L501.2450, L500.4050 ####[facility] [address] [place], [address] Erythrocyte distribution width (RBC) [Ratio] 17.9 % High 11.6-14.6 [facility] Comment on above: Performed By: #### L 100.0100, L501.2450, L500.4050 ####[facility] [address] [place], [address] Hematocrit (Bld) [Volume fraction] 28.8 % Low 40-54 [facility] Comment on above: Performed By: #### L 100.0100, L501.2450, L500.4050 ####[facility] [address] [place], [address] Hemoglobin (Bld) [Mass/Vol] 9.2 g/dL Low 13.0-16.5 [facility] Comment on above: Performed By: #### L 100.0100, L501.2450, L500.4050 ####[facility] [address] [place], [address] IG% 0.400 Normal 0.0-0.9 [facility] Comment on above: Result Comment: IG% - Immature Granulocytes (promyelocytes, myelocytes andmetamyelocytes) > 1% indicates that a LEFT SHIFT is Present. Performed By: #### L 100.0100, L501.2450, L500.4050 ####[facility] [address] [place], [address] Lymphocytes/100 WBC (Bld) 12.8 % Low 19-41 [facility] Comment on above: Performed By: #### L 100.0100, L501.2450, L500.4050 ####[facility] [address] [place], [address] MCH (RBC) [Entitic mass] 29.0 pg Normal 27.0-32.0 [facility] Comment on above: Performed By: #### L 100.0100, L501.2450, L500.4050 ####[facility] [address] [place], [address] MCHC (RBC) [Mass/Vol] 31.9 g/dL Low 32-36 [facility] Comment on above: Performed By: #### L 100.0100, L501.2450, L500.4050 ####[facility] [address] [place], [address] MCV (RBC) [Entitic vol] 90.9 fL Normal 80-94 [facility] Comment on above: Performed By: #### L 100.0100, L501.2450, L500.4050 ####[facility] [address] [place], [address] Monocytes/100 WBC (Bld) 8.1 % Normal 0-10 [facility] Comment on above: Performed By: #### L 100.0100, L501.2450, L500.4050 ####[facility] [address] [place], [address] Neutrophils/100 WBC (Bld) 72.8 % High 47-70 [facility] Comment on above: Performed By: #### L 100.0100, L501.2450, L500.4050 ####[facility] [address] [place], [address] Nucleated RBC (Bld) [#/Vol] 0 10*3/uL Normal 0-5 [facility] Comment on above: Performed By: #### L 100.0100, L501.2450, L500.4050 ####[facility] [address] [place], [address] Platelet mean volume (Bld) [Entitic vol] 10.1 fL Normal 6.2-12.0 [facility] Comment on above: Performed By: #### L 100.0100, L501.2450, L500.4050 ####[facility] [address] [place], [address] Platelets (Bld) [#/Vol] 131 10*3/uL Low 150-450 [facility] Comment on above: Performed By: #### L 100.0100, L501.2450, L500.4050 ####[facility] [address] [place], [address] RBC (Bld) [#/Vol] 3.17 10*6/uL Low 4.6-6.2 [facility] Comment on above: Performed By: #### L 100.0100, L501.2450, L500.4050 ####[facility] [address] [place], [address] RDW SD 58.3 fl High 35.1-43.9 [facility] Comment on above: Performed By: #### L 100.0100, L501.2450, L500.4050 ####[facility] [address] [place], [address] WBC (Bld) [#/Vol] 10.8 10*3/uL Normal 4.4-11.0 [facility] Comment on above: Performed By: #### L 100.0100, L501.2450, L500.4050 ####[facility] [address] [place], [address] Carbon dioxide, total [Moles /volume] in Central venous bloodOrdered By: ED PROVIDER on 02-07-2025 CO2 [Moles/Vol] 22.7 mmol/L 21.0-32.0 [facility] Chloride assayOrdered By: ED PROVIDER on 02-07-2025 Chloride [Moles/Vol] 106 mmol/L 98-108 [facility] Comprehensive Metabolic Prof ilon 02-07-2025 Albumin [Mass/Vol] 2.2 g/dL Low 3.5-5.0 [facility] Comment on above: Performed By: #### L 100.0100, L501.2450, L500.4050 ####[facility] [address] [place], [address] Albumin/Globulin [Mass ratio] 0.6 {ratio} Low 0.9-2.4 [facility] Comment on above: Performed By: #### L 100.0100, L501.2450, L500.4050 ####[facility] [address] [place], [address] ALK PHOS 218 U/L High 40-129 [facility] Comment on above: Performed By: #### L 100.0100, L501.2450, L500.4050 ####[facility] [address] [place], [address] ALT [Catalytic activity/Vol] 30 U/L Normal <=46 [facility] Comment on above: Performed By: #### L 100.0100, L501.2450, L500.4050 ####[facility] [address] [place], [address] AST [Catalytic activity/Vol] 55 U/L High <=37 [facility] Comment on above: Performed By: #### L 100.0100, L501.2450, L500.4050 ####[facility] [address] [place], [address] Bilirubin [Mass/Vol] 1.92 mg/dL High 0.00-1.30 [facility] Comment on above: Performed By: #### L 100.0100, L501.2450, L500.4050 ####[facility] [address] [place], [address] BUN/CRE 13.9 RATIO Normal 10-20 [facility] Comment on above: Performed By: #### L 100.0100, L501.2450, L500.4050 ####[facility] [address] [place], [address] Calcium [Mass/Vol] 8.4 mg/dL Normal 7.6-11.0 [facility] Comment on above: Performed By: #### L 100.0100, L501.2450, L500.4050 ####[facility] [address] [place], [address] Chloride [Moles/Vol] 106 mmol/L Normal 98-108 [facility] Comment on above: Performed By: #### L 100.0100, L501.2450, L500.4050 ####[facility] [address] [place], [address] CO2 [Moles/Vol] 22.7 mmol/L Normal 21.0-32.0 [facility] Comment on above: Performed By: #### L 100.0100, L501.2450, L500.4050 ####[facility] [address] [place], [address] Creatinine [Mass/Vol] 1.05 mg/dL Normal 0.70-1.20 [facility] Comment on above: Performed By: #### L 100.0100, L501.2450, L500.4050 ####[facility] [address] [place], [address] GAP 9 Normal 5-15 [facility] Comment on above: Performed By: #### L 100.0100, L501.2450, L500.4050 ####[facility] [address] [place], [address] GFR/1.73 sq M.predicted among non-blacks MDRD (S/P/Bld) [Vol rate/Area] 82 mL/min/{1.73_m2} Normal >60 [facility] Comment on above: Result Comment: mL/m in/1.73m2 CKD-EPI Creatinine Equation (2020) Performed By: #### L 100.0100, L501.2450, L500.4050 ####[facility] [address] [place], [address] Globulin (S) [Mass/Vol] 3.5 g/dL Normal 2.2-4.2 [facility] Comment on above: Performed By: #### L 100.0100, L501.2450, L500.4050 ####[facility] [address] [place], [address] Glucose [Mass/Vol] 142 mg/dL High 70-99 [facility] Comment on above: Performed By: #### L 100.0100, L501.2450, L500.4050 ####[facility] [address] [place], [address] Potassium [Moles/Vol] 3.7 mmol/L Normal 3.3-5.1 [facility] Comment on above: Performed By: #### L 100.0100, L501.2450, L500.4050 ####[facility] [address] [place], [address] Sodium [Moles/Vol] 137 mmol/L Normal 133-145 [facility] Comment on above: Performed By: #### L 100.0100, L501.2450, L500.4050 ####[facility] [address] [place], [address] T PROT 5.8 g/dL Low 5.9-8.4 [facility] Comment on above: Performed By: #### L 100.0100, L501.2450, L500.4050 ####[facility] [address] [place], [address] Urea nitrogen [Mass/Vol] 15 mg/dL Normal 4-19 [facility] Comment on above: Performed By: #### L 100.0100, L501.2450, L500.4050 ####[facility] [address] [place], [place], [address] Eosinophil percentageOrdered By: ED PROVIDER on 02-07-2025 Eosinophils/100 WBC (Bld) 5.4 % High 0-5 [facility] Erythrocyte distribution wid th ratioOrdered By: ED PROVIDER on 02-07-2025 Erythrocyte distribution width (RBC) [Ratio] 17.9 % High 11.6-14.6 [facility] Erythrocyte distribution wid th standard deviationOrdered By: ED PROVIDER on 02-07-2025 Erythrocyte distribution width (RBC) [Ratio] 58.3 fl High 35.1-43.9 [facility] Glomerular filtration rate ( GFR) estimation/1.73 sq m using serum, plasma, or whole bOrdered By: ED PROVIDER on 02-07-2025 GFR/1.73 sq M.predicted among non-blacks MDRD (S/P/Bld) [Vol rate/Area] 82 mL/min/{1.73_m2} >60 [facility] Hematocrit Auto (Bld) [Volum e fraction]Ordered By: ED PROVIDER on 02-07-2025 Hematocrit (Bld) [Volume fraction] 28.8 % Low 40-54 [facility] Hemoglobin measurementOrdere d By: ED PROVIDER on 02-07-2025 Hemoglobin (Bld) [Mass/Vol] 9.2 g/dL Low 13.0-16.5 [facility] Immature granulocytes/100 WB C Auto (Bld)Ordered By: ED PROVIDER on 02-07-2025 Immature granulocytes/100 WBC (Bld) 0.400 % 0.0-0.9 [facility] Lipaseon 02-07-2025 Lipase [Catalytic activity/Vol] 35 U/L Normal 13-75 [facility] Comment on above: Result Comment: Siddhartha bhat note:LIPASE revised reference range effective 22.New Lipase methodology. Expected to produce lower valuesthan the previous assay method.NEW Reference Range: 13 - 75 U/L Performed By: #### L 100.0100, L501.2450, L500.4050 ####[facility] [address] [place], [address] MCV (mean corpuscular volume ) determinationOrdered By: ED PROVIDER on 02-07-2025 MCV (RBC) [Entitic vol] 90.9 fL 80-94 [facility] Mean corpuscular hemoglobin (MCH) determinationOrdered By: ED PROVIDER on 02-07-2025 MCH (RBC) [Entitic mass] 29.0 pg 27.0-32.0 [facility] Monocyte percentageOrdered B y: ED PROVIDER on 02-07-2025 Monocytes/100 WBC (Bld) 8.1 % 0-10 [facility] Neutrophil percentageOrdered By: ED PROVIDER on 02-07-2025 Neutrophils/100 WBC (Bld) 72.8 % High 47-70 [facility] No Panel InformationOrdered By: ED PROVIDER on 02-07-2025 55 U/L High <38 [facility] Platelet countOrdered By: ED PROVIDER on 02-07-2025 Platelets (Bld) [#/Vol] 131 10*3/uL Low 150-450 [facility] Potassium measurement (mass/ volume)Ordered By: ED PROVIDER on 02-07-2025 Potassium (Unsp spec) [Mass/Vol] 3.7 mmol/L 3.3-5.1 [facility] RBC Auto (Bld) [#/Vol]Ordere d By: ED PROVIDER on 02-07-2025 RBC (Bld) [#/Vol] 3.17 10*6/uL Low 4.6-6.2 [facility] Serum creatinine measurement (mass/volume)Ordered By: ED PROVIDER on 02-07-2025 Creatinine [Mass/Vol] 1.05 mg/dL 0.70-1.20 [facility] Serum globulin measurementOr dered By: ED PROVIDER on 02-07-2025 Globulin (S) [Mass/Vol] 3.5 g/dL 2.2-4.2 [facility] Serum glucose measurement (m ass/volume)Ordered By: ED PROVIDER on 02-07-2025 Glucose [Mass/Vol] 142 mg/dL High 70-99 [facility] Serum or plasma alanine thomas otransferase (ALT) measurementOrdered By: ED PROVIDER on 02-07-2025 ALT [Catalytic activity/Vol] 30 U/L <47 [facility] Serum or plasma albumin roosevelt urement (mass/volume)Ordered By: ED PROVIDER on 02-07-2025 Albumin [Mass/Vol] 2.2 g/dL Low 3.5-5.0 [facility] Serum or plasma albumin/glob ulin mass ratioOrdered By: ED PROVIDER on 02-07-2025 Albumin/Globulin [Mass ratio] 0.6 {ratio} Low 0.9-2.4 [facility] Serum or plasma alkaline kendrick sphatase measurementOrdered By: ED PROVIDER on 02-07-2025 ALP [Catalytic activity/Vol] 218 U/L High 40-129 [facility] Serum or plasma calcium roosevelt urement (mass/volume)Ordered By: ED PROVIDER on 02-07-2025 Calcium [Mass/Vol] 8.4 mg/dL 7.6-11.0 [facility] Serum or plasma urea nitroge n measurement (mass/volume)Ordered By: ED PROVIDER on 02-07-2025 Urea nitrogen [Mass/Vol] 15 mg/dL 4-19 [facility] Sodium levelOrdered By: ED P ENRIQUE on 02-07-2025 Sodium [Moles/Vol] 137 mmol/L 133-145 [facility] Total proteinOrdered By: ED PROVIDER on 02-07-2025 Protein [Mass/Vol] 5.8 g/dL Low 5.9-8.4 [facility] White blood cell (WBC) count Ordered By: ED PROVIDER on 02-07-2025 WBC (Bld) [#/Vol] 10.8 10*3/uL 4.4-11.0 [facility] Culture, Blood (WB)on 2024 CUB Blood cultures x2, f rom two different sites No growth in [address] [facility] Comment on above: Performed By: #### M 200.1000 ####[facility] [address] [place], [address] Anion gap in Serum or Plasma Ordered By: Yaritza Leo on 01-31-2025 Anion gap [Moles/Vol] 9 mmol/L 5-15 [facility] BUN/creatinine ratioOrdered By: Yaritza Leo on 01-31-2025 Urea nitrogen/Creatinine [Mass ratio] 10.7 mg/mg - [facility] Basic Metabolic Profile (BMP )on 01-31-2025 BUN/CRE 10.7 RATIO Normal - [facility] Comment on above: Performed By: #### L 500.2500, L100.0500 ####[facility] [address] [place], [address] Calcium [Mass/Vol] 8.5 mg/dL Normal 7.6-11.0 [facility] Comment on above: Performed By: #### L 500.2500, L100.0500 ####[facility] [address] [place], [address] Chloride [Moles/Vol] 102 mmol/L Normal 98-108 [facility] Comment on above: Performed By: #### L 500.2500, L100.0500 ####[facility] [address] [place], [address] CO2 [Moles/Vol] 22.6 mmol/L Normal 21.0-32.0 [facility] Comment on above: Performed By: #### L 500.2500, L100.0500 ####[facility] [address] [place], [address] Creatinine [Mass/Vol] 0.95 mg/dL Normal 0.70-1.20 [facility] Comment on above: Performed By: #### L 500.2500, L100.0500 ####[facility] [address] [place], [address] ECRCL 108.71 ml/min Normal 50-250 [facility] Comment on above: Performed By: #### L 500.2500, L100.0500 ####[facility] [address] [place], [address] GAP 9 Normal 5-15 [facility] Comment on above: Performed By: #### L 500.2500, L100.0500 ####[facility] [address] [place], [address] GFR/1.73 sq M.predicted among non-blacks MDRD (S/P/Bld) [Vol rate/Area] 93 mL/min/{1.73_m2} Normal >60 [facility] Comment on above: Result Comment: mL/m in/1.73m2 CKD-EPI Creatinine Equation (2020) Performed By: #### L 500.2500, L100.0500 ####[facility] [address] [place], [address] Glucose [Mass/Vol] 143 mg/dL High 70-99 [facility] Comment on above: Performed By: #### L 500.2500, L100.0500 ####[facility] [address] [place], [address] Potassium [Moles/Vol] 3.9 mmol/L Normal 3.3-5.1 [facility] Comment on above: Performed By: #### L 500.2500, L100.0500 ####[facility] [address] [place], [address] Sodium [Moles/Vol] 133 mmol/L Normal 133-145 [facility] Comment on above: Performed By: #### L 500.2500, L100.0500 ####[facility] [address] [place], [address] Urea nitrogen [Mass/Vol] 10 mg/dL Normal 4-19 [facility] Comment on above: Performed By: #### L 500.2500, L100.0500 ####[facility] [address] [place], [address] Bedside Glucoseon 01-31-2025 FINGERSTICK GLU 129 mg/dL High 74-106 [facility] Comment on above: Result Comment: BRISA MOROCHO OF PATIENT CARE PER NURSING PROTOCOL Performed By: #### L 501.080 ####[facility] [address] [place], [address] FINGERSTICK GLU 179 mg/dL High 74-106 [facility] Comment on above: Result Comment: BRISA GEMENT OF PATIENT CARE PER NURSING PROTOCOL Performed By: #### L 501.080 ####[facility] [address] [place], [address] FINGERSTICK GLU 149 mg/dL High 74-106 [facility] Comment on above: Result Comment: BRISA GEMENT OF PATIENT CARE PER NURSING PROTOCOL Performed By: #### L 501.080 ####[facility] [address] [place], [address] CBC-Complete Blood Cnt No Di ffon 01-31-2025 Erythrocyte distribution width (RBC) [Ratio] 17.7 % High 11.6-14.6 [facility] [facility] Comment on above: Performed By: #### L 500.2500, L100.0500 ####[facility] [address] [place], [address] Hematocrit (Bld) [Volume fraction] 23.8 % Low 40-54 [facility] Comment on above: Performed By: #### L 500.2500, L100.0500 ####[facility] [address] [place], [address] Hemoglobin (Bld) [Mass/Vol] 7.9 g/dL Low 13.0-16.5 [facility] Comment on above: Performed By: #### L 500.2500, L100.0500 ####[facility] [address] [place], [address] MCH (RBC) [Entitic mass] 29.8 pg Normal 27.0-32.0 [facility] Comment on above: Performed By: #### L 500.2500, L100.0500 ####[facility] [address] [place], [address] MCHC (RBC) [Mass/Vol] 33.2 g/dL Normal 32-36 [facility] Comment on above: Performed By: #### L 500.2500, L100.0500 ####[facility] [address] [place], [address] MCV (RBC) [Entitic vol] 89.8 fL Normal 80-94 [facility] Comment on above: Performed By: #### L 500.2500, L100.0500 ####[facility] [address] [place], [address] Platelet mean volume (Bld) [Entitic vol] 10.6 fL Normal 6.2-12.0 [facility] Comment on above: Performed By: #### L 500.2500, L100.0500 ####[facility] [address] [place], [address] Platelets (Bld) [#/Vol] 108 10*3/uL Low 150-450 [facility] Comment on above: Performed By: #### L 500.2500, L100.0500 ####[facility] [address] [place], [address] RBC (Bld) [#/Vol] 2.65 10*6/uL Low 4.6-6.2 [facility] Comment on above: Performed By: #### L 500.2500, L100.0500 ####[facility] [address] [place], [address] RDW SD 56.9 fl High 35.1-43.9 [facility] Comment on above: Performed By: #### L 500.2500, L100.0500 ####[facility] [address] [place], [address] WBC (Bld) [#/Vol] 5.9 10*3/uL Normal 4.4-11.0 [facility] Comment on above: Performed By: #### L 500.2500, L100.0500 ####[facility] [address] [place], [place], [id number] Carbon dioxide, total [Moles /volume] in Central venous bloodOrdered By: Yaritza Leo on 01-31-2025 CO2 [Moles/Vol] 22.6 mmol/L 21.0-32.0 [facility] Chloride assayOrdered By: Raad Leo on 01-31-2025 Chloride [Moles/Vol] 102 mmol/L 98-108 [facility] Erythrocyte distribution wid th ratioOrdered By: Yaritza Leo on 01-31-2025 Erythrocyte distribution width (RBC) [Ratio] 17.7 % High 11.6-14.6 [facility] Erythrocyte distribution wid th standard deviationOrdered By: Yaritza Leo on 01-31-2025 Erythrocyte distribution width (RBC) [Ratio] 56.9 fl High 35.1-43.9 [facility] Glomerular filtration rate ( GFR) estimation/1.73 sq m using serum, plasma, or whole bOrdered By: Yaritza Leo on 01-31-2025 GFR/1.73 sq M.predicted among non-blacks MDRD (S/P/Bld) [Vol rate/Area] 93 mL/min/{1.73_m2} >60 [facility] deOrdered By: Yaritza Leo on 01-31-2025 Glucose [Mass/Vol] 129 mg/dL High 74-106 [facility] Hematocrit Auto (Bld) [Volum e fraction]Ordered By: Yaritza Leo on 01-31-2025 Hematocrit (Bld) [Volume fraction] 23.8 % Low 40-54 [facility] Hemoglobin measurementOrdere d By: Yaritza Leo on 01-31-2025 Hemoglobin (Bld) [Mass/Vol] 7.9 g/dL Low 13.0-16.5 [facility] MCV (mean corpuscular volume ) determinationOrdered By: Yaritza Leo on 01-31-2025 MCV (RBC) [Entitic vol] 89.8 fL 80-94 [facility] Mean corpuscular hemoglobin (MCH) determinationOrdered By: Yaritza Leo on 01-31-2025 MCH (RBC) [Entitic mass] 29.8 pg 27.0-32.0 [facility] Platelet countOrdered By: Raad Leo on 01-31-2025 Platelets (Bld) [#/Vol] 108 10*3/uL Low 150-450 [facility] Potassium measurement (mass/ volume)Ordered By: Yaritza Leo on 01-31-2025 Potassium (Unsp spec) [Mass/Vol] 3.9 mmol/L 3.3-5.1 [facility] RBC Auto (Bld) [#/Vol]Ordere d By: Yaritza Leo on 01-31-2025 RBC (Bld) [#/Vol] 2.65 10*6/uL Low 4.6-6.2 [facility] Serum creatinine measurement (mass/volume)Ordered By: Yaritza Leo on 01-31-2025 Creatinine [Mass/Vol] 0.95 mg/dL 0.70-1.20 [facility] Serum glucose measurement (m ass/volume)Ordered By: Yaritza Leo on 01-31-2025 Glucose [Mass/Vol] 143 mg/dL High 70-99 [facility] Serum or plasma calcium roosevelt urement (mass/volume)Ordered By: Yaritza Leo on 01-31-2025 Calcium [Mass/Vol] 8.5 mg/dL 7.6-11.0 [facility] Serum or plasma urea nitroge n measurement (mass/volume)Ordered By: Yaritza Leo on 01-31-2025 Urea nitrogen [Mass/Vol] 10 mg/dL 4-19 [facility] Sodium levelOrdered By: Saritha Leo on 01-31-2025 Sodium [Moles/Vol] 133 mmol/L 133-145 [facility] White blood cell (WBC) count Ordered By: Yaritza Leo on 01-31-2025 WBC (Bld) [#/Vol] 5.9 10*3/uL 4.4-11.0 [facility] Absolute lymphocyte countOrd ered By: Yaritza Leo on 01-30-2025 Lymphocytes Auto (Unsp spec) [#/Vol] 1.08 10*3/uL 0.83-4.51 [facility] Automated lymphocyte count a s percentage of total leukocytesOrdered By: Yaritza Leo on 01-30-2025 Lymphocytes/100 WBC Auto (Unsp spec) 20.0 % 19-41 [facility] Basic Metabolic Profile (BMP )on 01-30-2025 BUN/CRE 10.1 RATIO Normal 10-20 [facility] Comment on above: Performed By: #### L 501.5200, L501.2300, L500.2500, L100.0100 ####[facility] [address] [place], [address] Calcium [Mass/Vol] 8.4 mg/dL Normal 7.6-11.0 [facility] Comment on above: Performed By: #### L 501.5200, L501.2300, L500.2500, L100.0100 ####[facility] [address] [place], [address] Chloride [Moles/Vol] 101 mmol/L Normal 98-108 [facility] Comment on above: Performed By: #### L 501.5200, L501.2300, L500.2500, L100.0100 ####[facility] [address] [place], [address] CO2 [Moles/Vol] 17.3 mmol/L Low 21.0-32.0 [facility] Comment on above: Performed By: #### L 501.5200, L501.2300, L500.2500, L100.0100 ####[facility] [address] [place], [address] Creatinine [Mass/Vol] 0.93 mg/dL Normal 0.70-1.20 [facility] Comment on above: Performed By: #### L 501.5200, L501.2300, L500.2500, L100.0100 ####[facility] [address] [place], [address] ECRCL 111.05 ml/min Normal 50-250 [facility] Comment on above: Performed By: #### L 501.5200, L501.2300, L500.2500, L100.0100 ####[facility] [address] [place], [address] GAP 13 Normal 5-15 [facility] Comment on above: Performed By: #### L 501.5200, L501.2300, L500.2500, L100.0100 ####[facility] [address] [place], [address] GFR/1.73 sq M.predicted among non-blacks MDRD (S/P/Bld) [Vol rate/Area] 95 mL/min/{1.73_m2} Normal >60 [facility] Comment on above: Result Comment: mL/m in/1.73m2 CKD-EPI Creatinine Equation (2020) Performed By: #### L 501.5200, L501.2300, L500.2500, L100.0100 ####[facility] [address] [place], [address] Glucose [Mass/Vol] 139 mg/dL High 70-99 [facility] Comment on above: Performed By: #### L 501.5200, L501.2300, L500.2500, L100.0100 ####[facility] [address] [place], [address] Potassium [Moles/Vol] 3.5 mmol/L Normal 3.3-5.1 [facility] Comment on above: Result Comment: Hemo lysis present, Results??could be affected.?? Performed By: #### L 501.5200, L501.2300, L500.2500, L100.0100 ####[facility] [address] [place], [address] Sodium [Moles/Vol] 131 mmol/L Low 133-145 [facility] Comment on above: Performed By: #### L 501.5200, L501.2300, L500.2500, L100.0100 ####[facility] [address] [place], [address] Urea nitrogen [Mass/Vol] 9 mg/dL Normal 4-19 [facility] Comment on above: Performed By: #### L 501.5200, L501.2300, L500.2500, L100.0100 ####[facility] [address] [place], [address] Basophil percentageOrdered B y: Yaritza Leo on 01-30-2025 Basophils/100 WBC (Bld) 0.7 % Normal 0-1 [facility] Comment on above: Performed By: #### L 501.5200, L501.2300, L500.2500, L100.0100 ####[facility] [address] [place], [address] Bedside Glucoseon 01-30-2025 FINGERSTICK GLU 170 mg/dL High 74-106 [facility] Comment on above: Result Comment: BRISA GEMENT OF PATIENT CARE PER NURSING PROTOCOL Performed By: #### L 501.080 ####[facility] [address] [place], [address] FINGERSTICK GLU 122 mg/dL High 74-106 [facility] Comment on above: Result Comment: BRISA GEMENT OF PATIENT CARE PER NURSING PROTOCOL Performed By: #### L 501.080 ####[facility] [address] [place], [address] FINGERSTICK GLU 119 mg/dL High 74-106 [facility] Comment on above: Result Comment: BRISA GEMENT OF PATIENT CARE PER NURSING PROTOCOL Performed By: #### L 501.080 ####[facility] [address] [place], [address] FINGERSTICK GLU 116 mg/dL High 74-106 [facility] Comment on above: Result Comment: BRISA MOROCHO OF PATIENT CARE PER NURSING PROTOCOL Performed By: #### L 501.080 ####[facility] [address] [place], [address] CBC W/Diff, Automatedon 06-2 Absolute Lymph 1.08 X10 3/uL Normal 0.83-4.51 [facility] Comment on above: Performed By: #### L 501.5200, L501.2300, L500.2500, L100.0100 ####[facility] [address] [place], [address] Absolute Neut 2.9 X10 3/uL Normal 2.0-7.7 [facility] Comment on above: Performed By: #### L 501.5200, L501.2300, L500.2500, L100.0100 ####[facility] [address] [place], [address] Erythrocyte distribution width (RBC) [Ratio] 18.1 % High 11.6-14.6 [facility] Comment on above: Performed By: #### L 501.5200, L501.2300, L500.2500, L100.0100 ####[facility] [address] [place], [address] Hematocrit (Bld) [Volume fraction] 24.1 % Low 40-54 [facility] Comment on above: Performed By: #### L 501.5200, L501.2300, L500.2500, L100.0100 ####[facility] [address] [place], [address] Hemoglobin (Bld) [Mass/Vol] 7.7 g/dL Low 13.0-16.5 [facility] Comment on above: Performed By: #### L 501.5200, L501.2300, L500.2500, L100.0100 ####[facility] [address] [place], [address] IG% 0.600 Normal 0.0-0.9 [facility] Comment on above: Result Comment: IG% - Immature Granulocytes (promyelocytes, myelocytes andmetamyelocytes) > 1% indicates that a LEFT SHIFT is Present. Performed By: #### L 501.5200, L501.2300, L500.2500, L100.0100 ####[facility] [address] [place], [address] Lymphocytes/100 WBC (Bld) 20.0 % Normal 19-41 [facility] Comment on above: Performed By: #### L 501.5200, L501.2300, L500.2500, L100.0100 ####[facility] [address] [place], [address] MCH (RBC) [Entitic mass] 29.2 pg Normal 27.0-32.0 [facility] Comment on above: Performed By: #### L 501.5200, L501.2300, L500.2500, L100.0100 ####[facility] [address] [place], [address] MCHC (RBC) [Mass/Vol] 32.0 g/dL Normal 32-36 [facility] Comment on above: Performed By: #### L 501.5200, L501.2300, L500.2500, L100.0100 ####[facility] [address] [place], [address] MCV (RBC) [Entitic vol] 91.3 fL Normal 80-94 [facility] Comment on above: Performed By: #### L 501.5200, L501.2300, L500.2500, L100.0100 ####[facility] [address] [place], [address] Nucleated RBC (Bld) [#/Vol] 0 10*3/uL Normal 0-5 [facility] Comment on above: Performed By: #### L 501.5200, L501.2300, L500.2500, L100.0100 ####[facility] [address] [place], [address] Platelet mean volume (Bld) [Entitic vol] 10.5 fL Normal 6.2-12.0 [facility] Comment on above: Performed By: #### L 501.5200, L501.2300, L500.2500, L100.0100 ####[facility] [address] [place], [address] Platelets (Bld) [#/Vol] 108 10*3/uL Low 150-450 [facility] Comment on above: Performed By: #### L 501.5200, L501.2300, L500.2500, L100.0100 ####[facility] [address] [place], [address] RBC (Bld) [#/Vol] 2.64 10*6/uL Low 4.6-6.2 [facility] Comment on above: Performed By: #### L 501.5200, L501.2300, L500.2500, L100.0100 ####[facility] [address] [place], [address] RDW SD 61.1 fl High 35.1-43.9 [facility] Comment on above: Performed By: #### L 501.5200, L501.2300, L500.2500, L100.0100 ####[facility] [address] [place], [address] WBC (Bld) [#/Vol] 5.4 10*3/uL Normal 4.4-11.0 [facility] Comment on above: Performed By: #### L 501.5200, L501.2300, L500.2500, L100.0100 ####[facility] [address] [place], [address] Eosinophil percentageOrdered By: Yaritza Leo on 01-30-2025 Eosinophils/100 WBC (Bld) 7.0 % High 0-5 [facility] Comment on above: Performed By: #### L 501.5200, L501.2300, L500.2500, L100.0100 ####[facility] [address] [place], [address] Immature granulocytes/100 WB C Auto (Bld)Ordered By: Yaritza Leo on 01-30-2025 Immature granulocytes/100 WBC (Bld) 0.600 % 0.0-0.9 [facility] Magnesiumon 01-30-2025 Magnesium [Mass/Vol] 1.7 mg/dL Normal 1.5-2.2 [facility] Comment on above: Performed By: #### L 501.5200, L501.2300, L500.2500, L100.0100 ####[facility] [address] [place], [address] Magnesium measurement (mass/ volume)Ordered By: Yaritza Leo on 01-30-2025 Magnesium (Unsp spec) [Mass/Vol] 1.7 mg/dL 1.5-2.2 [facility] Monocyte percentageOrdered B y: Yaritza Leo on 01-30-2025 Monocytes/100 WBC (Bld) 18.5 % High 0-10 [facility] Comment on above: Performed By: #### L 501.5200, L501.2300, L500.2500, L100.0100 ####[facility] [address] [place], [address] Neutrophil percentageOrdered By: Yaritza Leo on 01-30-2025 Neutrophils/100 WBC (Bld) 53.2 % Normal 47-70 [facility] Comment on above: Performed By: #### L 501.5200, L501.2300, L500.2500, L100.0100 ####[facility] [address] [place], [address] Phosphoruson 01-30-2025 Phosphate [Mass/Vol] 2.7 mg/dL Normal 2.7-4.5 [facility] Comment on above: Performed By: #### L 501.5200, L501.2300, L500.2500, L100.0100 ####[facility] [address] [place], [address] Urine Cultureon 01-30-[address] [facility] Comment on above: Performed By: #### M 100.2200 ####[facility] [address] [place], [address] Bedside Glucoseon 01-29-2025 FINGERSTICK GLU 174 mg/dL High 74-106 [facility] Comment on above: Result Comment: BRISA GEMENT OF PATIENT CARE PER NURSING PROTOCOL Performed By: #### L 501.080 ####[facility] [address] [place], [address] FINGERSTICK GLU 163 mg/dL High 74-106 [facility] Comment on above: Result Comment: BRISA GEMENT OF PATIENT CARE PER NURSING PROTOCOL Performed By: #### L 501.080 ####[facility] [address] [place], [address] FINGERSTICK GLU 196 mg/dL High 74-106 [facility] Comment on above: Result Comment: BRISA GEMENT OF PATIENT CARE PER NURSING PROTOCOL Performed By: #### L 501.080 ####[facility] [address] [place], [address] FINGERSTICK GLU 237 mg/dL High 74-106 [facility] Comment on above: Result Comment: BRISA GEMENT OF PATIENT CARE PER NURSING PROTOCOL Performed By: #### L 501.080 ####[facility] [address] [place], [address] FINGERSTICK GLU 172 mg/dL High 74-106 [facility] Comment on above: Result Comment: BRISA MOROCHO OF PATIENT CARE PER NURSING PROTOCOL Performed By: #### L 501.080 ####[facility] [address] [place], [address] Bilirubin, totalOrdered By: Boone Izquierdo on 01-29-2025 Bilirubin [Mass/Vol] 1.81 mg/dL High 0.00-1.30 [facility] CBC W/Diff, Automatedon 01-03 Absolute Lymph 0.83 X10 3/uL Normal 0.83-4.51 [facility] Comment on above: Performed By: #### L 100.0100, L500.4050 ####[facility] [address] [place], [address] Absolute Neut 3.0 X10 3/uL Normal 2.0-7.7 [facility] Comment on above: Performed By: #### L 100.0100, L500.4050 ####[facility] [address] [place], [address] Basophils/100 WBC (Bld) 0.8 % Normal 0-1 [facility] Comment on above: Performed By: #### L 100.0100, L500.4050 ####[facility] [address] [place], [address] Eosinophils/100 WBC (Bld) 5.3 % High 0-5 [facility] Comment on above: Performed By: #### L 100.0100, L500.4050 ####[facility] [address] [place], [address] Erythrocyte distribution width (RBC) [Ratio] 18.4 % High 11.6-14.6 [facility] Comment on above: Performed By: #### L 100.0100, L500.4050 ####[facility] [address] [place], [address] Hematocrit (Bld) [Volume fraction] 24.8 % Low 40-54 [facility] Comment on above: Performed By: #### L 100.0100, L500.4050 ####[facility] [address] [place], [address] Hemoglobin (Bld) [Mass/Vol] 8.1 g/dL Low 13.0-16.5 [facility] Comment on above: Performed By: #### L 100.0100, L500.4050 ####[facility] [address] [place], [address] IG% 0.800 Normal 0.0-0.9 [facility] Comment on above: Result Comment: IG% - Immature Granulocytes (promyelocytes, myelocytes andmetamyelocytes) > 1% indicates that a LEFT SHIFT is Present. Performed By: #### L 100.0100, L500.4050 ####[facility] [address] [place], [address] Lymphocytes/100 WBC (Bld) 17.1 % Low 19-41 [facility] Comment on above: Performed By: #### L 100.0100, L500.4050 ####[facility] [address] [place], [address] MCH (RBC) [Entitic mass] 29.6 pg Normal 27.0-32.0 [facility] Comment on above: Performed By: #### L 100.0100, L500.4050 ####[facility] [address] [place], [address] MCHC (RBC) [Mass/Vol] 32.7 g/dL Normal 32-36 [facility] Comment on above: Performed By: #### L 100.0100, L500.4050 ####[facility] [address] [place], [address] MCV (RBC) [Entitic vol] 90.5 fL Normal 80-94 [facility] Comment on above: Performed By: #### L 100.0100, L500.4050 ####[facility] [address] [place], [address] Monocytes/100 WBC (Bld) 15.2 % High 0-10 [facility] Comment on above: Performed By: #### L 100.0100, L500.4050 ####[facility] [address] [place], [address] Neutrophils/100 WBC (Bld) 60.8 % Normal 47-70 [facility] Comment on above: Performed By: #### L 100.0100, L500.4050 ####[facility] [address] [place], [address] Nucleated RBC (Bld) [#/Vol] 0 10*3/uL Normal 0-5 [facility] Comment on above: Performed By: #### L 100.0100, L500.4050 ####[facility] [address] [place], [address] Platelet mean volume (Bld) [Entitic vol] 11.6 fL Normal 6.2-12.0 [facility] Comment on above: Performed By: #### L 100.0100, L500.4050 ####[facility] [address] [place], [address] Platelets (Bld) [#/Vol] 120 10*3/uL Low 150-450 [facility] Comment on above: Performed By: #### L 100.0100, L500.4050 ####[facility] [id number] [place], [address] RBC (Bld) [#/Vol] 2.74 10*6/uL Low 4.6-6.2 [facility] Comment on above: Performed By: #### L 100.0100, L500.4050 ####[facility] [id number] [place], [address] RDW SD 60.7 fl High 35.1-43.9 [facility] Comment on above: Performed By: #### L 100.0100, L500.4050 ####[facility] [id number] [place], [address] WBC (Bld) [#/Vol] 4.9 10*3/uL Normal 4.4-11.0 [facility] Comment on above: Performed By: #### L 100.0100, L500.4050 ####[facility] [id number] [place], [address] Comprehensive Metabolic Prof [facility] 01-29-2025 Albumin [Mass/Vol] 2.3 g/dL Low 3.5-5.0 [place] [facility] Comment on above: Performed By: #### L 100.0100, L500.4050 ####[facility] [address] [place], [address] Albumin/Globulin [Mass ratio] 0.8 {ratio} Low 0.9-2.4 [facility] Comment on above: Performed By: #### L 100.0100, L500.4050 ####[facility] [address] [place], [address] ALK PHOS 180 U/L High 40-129 [facility] Comment on above: Performed By: #### L 100.0100, L500.4050 ####[facility] [address] [place], [address] ALT [Catalytic activity/Vol] 30 U/L Normal <=46 [facility] Comment on above: Performed By: #### L 100.0100, L500.4050 ####[facility] [address] [place], [address] AST [Catalytic activity/Vol] 52 U/L High <=37 [facility] Comment on above: Performed By: #### L 100.0100, L500.4050 ####[facility] [address] [place], [address] Bilirubin [Mass/Vol] 1.81 mg/dL High 0.00-1.30 [facility] Comment on above: Performed By: #### L 100.0100, L500.4050 ####[facility] [address] [place], [address] BUN/CRE 11.6 RATIO Normal 10-20 [facility] Comment on above: Performed By: #### L 100.0100, L500.4050 ####[facility] [address] [place], [address] Calcium [Mass/Vol] 8.8 mg/dL Normal 7.6-11.0 [facility] Comment on above: Performed By: #### L 100.0100, L500.4050 ####[facility] [address] [place], [address] Chloride [Moles/Vol] 100 mmol/L Normal 98-108 [facility] Comment on above: Performed By: #### L 100.0100, L500.4050 ####[facility] [address] [place], [address] CO2 [Moles/Vol] 19.5 mmol/L Low 21.0-32.0 [facility] Comment on above: Performed By: #### L 100.0100, L500.4050 ####[facility] [address] [place], [address] Creatinine [Mass/Vol] 1.09 mg/dL Normal 0.70-1.20 [facility] Comment on above: Performed By: #### L 100.0100, L500.4050 ####[facility] [address] [place], [address] ECRCL 94.75 ml/min Normal 50-250 [facility] Comment on above: Performed By: #### L 100.0100, L500.4050 ####[facility] [address] [place], [address] GAP 14 Normal 5-15 [facility] Comment on above: Performed By: #### L 100.0100, L500.4050 ####[facility] [address] [place], [address] GFR/1.73 sq M.predicted among non-blacks MDRD (S/P/Bld) [Vol rate/Area] 79 mL/min/{1.73_m2} Normal >60 [facility] Comment on above: Result Comment: mL/m in/1.73m2 CKD-EPI Creatinine Equation (2020) Performed By: #### L 100.0100, L500.4050 ####[facility] [address] [place], [address] Globulin (S) [Mass/Vol] 3.1 g/dL Normal 2.2-4.2 [facility] Comment on above: Performed By: #### L 100.0100, L500.4050 ####[facility] [address] [place], [address] Glucose [Mass/Vol] 265 mg/dL High 70-99 [facility] Comment on above: Performed By: #### L 100.0100, L500.4050 ####[facility] [address] [place], [address] Potassium [Moles/Vol] 3.5 mmol/L Normal 3.3-5.1 [facility] Comment on above: Performed By: #### L 100.0100, L500.4050 ####[facility] [address] [place], [address] Sodium [Moles/Vol] 133 mmol/L Normal 133-145 [facility] Comment on above: Performed By: #### L 100.0100, L500.4050 ####[facility] [address] [place], [address] T PROT 5.4 g/dL Low 5.9-8.4 [facility] Comment on above: Performed By: #### L 100.0100, L500.4050 ####[facility] [address] [place], [address] Urea nitrogen [Mass/Vol] 13 mg/dL Normal 4-19 [facility] Comment on above: Performed By: #### L 100.0100, L500.4050 ####[facility] [address] [place], [address] No Panel InformationOrdered By: Boone Izquierdo on 01-29-2025 52 U/L High <38 [facility] Serum globulin measurementOr dered By: Boone Izquierdo on 01-29-2025 Globulin (S) [Mass/Vol] 3.1 g/dL 2.2-4.2 [facility] Serum or plasma alanine thomas otransferase (ALT) measurementOrdered By: Boone Izquierdo on 01-29-2025 ALT [Catalytic activity/Vol] 30 U/L <47 [facility] Serum or plasma albumin roosevelt urement (mass/volume)Ordered By: Boone Izquierdo on 01-29-2025 Albumin [Mass/Vol] 2.3 g/dL Low 3.5-5.0 [facility] Serum or plasma albumin/glob ulin mass ratioOrdered By: Boone Izquierdo on 01-29-2025 Albumin/Globulin [Mass ratio] 0.8 {ratio} Low 0.9-2.4 [facility] Serum or plasma alkaline kendrick sphatase measurementOrdered By: Boone Izquierdo on 01-29-2025 ALP [Catalytic activity/Vol] 180 U/L High 40-129 [facility] Total proteinOrdered By: Danita Izquierdo on 01-29-2025 Protein [Mass/Vol] 5.4 g/dL Low 5.9-8.4 [facility] Abdomen/Pelvis W IV Cont ONL Yon 01-28-2025 Abdomen/Pelvis W IV Cont ONLY Normal [facility] Absolute lymphocyte countOrd ered By: Danny Hutton on 01-28-2025 Lymphocytes Auto (Unsp spec) [#/Vol] 0.98 10*3/uL 0.83-4.51 [facility] Activated partial thrombopla stin time (aPTT) in platelet poor plasma by coagulation aOrdered By: Danny Hutton on 01-28-2025 aPTT Coag (PPP) [Time] 38.4 s High 24.1-36.[address] [facility] Ammoniaon 01-28-2025 Ammonia (P) [Moles/Vol] 108.0 umol/L High 16-60 [facility] Comment on above: Order Comment: RED W. PREVIOUS SPECIMEN REJECTED DUE TOHEMOLYSIS. 01/28/25 [address]. Performed By: #### L 503.5510 ####[facility] [address] [place], [place], [phone] Anion gap in Serum or Plasma Ordered By: Danny Hutton on 01-28-2025 Anion gap [Moles/Vol] 14 mmol/L 5-15 [facility] Automated lymphocyte count a s percentage of total leukocytesOrdered By: Danny Hutton on 01-28-2025 Lymphocytes/100 WBC Auto (Unsp spec) 18.8 % Low 19-41 [facility] BUN/creatinine ratioOrdered By: Danny Jack on 01-28-2025 Urea nitrogen/Creatinine [Mass ratio] 12.8 mg/mg 10-20 [facility] Basic Metabolic Profile (BMP )on 01-28-2025 CO2 [Moles/Vol] 22.1 mmol/L Normal 21.0-32.0 [facility] Comment on above: Performed By: #### L 500.3400, L300.3900, L500.2500, L501.2450, L503.6005, L501.5200, L300.4310, L501.4021, L100.0100, L503.7505 ####[facility] [address] [place], [place], [phone] GAP 14 Normal 5-15 [facility] Comment on above: Performed By: #### L 500.3400, L300.3900, L500.2500, L501.2450, L503.6005, L501.5200, L300.4310, L501.4021, L100.0100, L503.7505 ####[facility] [address] [place], [place], [phone] Basophil percentageOrdered B y: Danny Hutton on 01-28-2025 Basophils/100 WBC (Bld) 0.8 % 0-1 [facility] Bedside Glucoseon 01-28-2025 FINGERSTICK GLU 102 mg/dL Normal 74-106 [facility] Comment on above: Result Comment: BRISA GEMENT OF PATIENT CARE PER NURSING PROTOCOL Performed By: #### L 501.080 ####[facility] [address] [place], [place], [phone] FINGERSTICK GLU 96 mg/dL Normal 74-106 [facility] Comment on above: Result Comment: BRISA GEMENT OF PATIENT CARE PER NURSING PROTOCOL Performed By: #### L 501.080 ####[facility] [address] [place], [place], [phone] Bilirubin Test strip Ql (U)O rdered By: Danny Hutton on 01-28-2025 Bilirubin Ql (U) Negative Negative [facility] Bilirubin directOrdered By: Danny Hutton on 01-28-2025 Bilirubin.direct [Mass/Vol] 1.04 mg/dL High 0.00-0.30 [facility] Bilirubin, totalOrdered By: Danny Hutton on 01-28-2025 Bilirubin [Mass/Vol] 1.91 mg/dL High 0.00-1.30 [facility] Blood cultureOrdered By: Silvano Hutton on 01-28-2025 Bacteria identified Cx Nom (Bld) No growth in [address] [facility] Bacteria identified Cx Nom (Bld) No growth in [address] [facility] CBC W/Diff, Automatedon 01-03 Absolute Lymph 0.98 X10 3/uL Normal 0.83-4.51 [facility] Comment on above: Performed By: #### L 500.3400, L300.3900, L500.2500, L501.2450, L503.6005, L501.5200, L300.4310, L501.4021, L100.0100, L503.7505 ####[facility] [address] [place], [phone] Absolute Neut 3.0 X10 3/uL Normal 2.0-7.7 [facility] Comment on above: Performed By: #### L 500.3400, L300.3900, L500.2500, L501.2450, L503.6005, L501.5200, L300.4310, L501.4021, L100.0100, L503.7505 ####[facility] [address] [place], [place], [phone] Basophils/100 WBC (Bld) 0.8 % Normal 0-1 [facility] Comment on above: Performed By: #### L 500.3400, L300.3900, L500.2500, L501.2450, L503.6005, L501.5200, L300.4310, L501.4021, L100.0100, L503.7505 ####[facility] [address] [place], [address] Eosinophils/100 WBC (Bld) 4.6 % Normal 0-5 [facility] Comment on above: Performed By: #### L 500.3400, L300.3900, L500.2500, L501.2450, L503.6005, L501.5200, L300.4310, L501.4021, L100.0100, L503.7505 ####[facility] [address] [place], [address] Erythrocyte distribution width (RBC) [Ratio] 18.4 % High 11.6-14.6 [facility] Comment on above: Performed By: #### L 500.3400, L300.3900, L500.2500, L501.2450, L503.6005, L501.5200, L300.4310, L501.4021, L100.0100, L503.7505 ####[facility] [address] [place], [address] Hematocrit (Bld) [Volume fraction] 25.2 % Low 40-54 [facility] Comment on above: Performed By: #### L 500.3400, L300.3900, L500.2500, L501.2450, L503.6005, L501.5200, L300.4310, L501.4021, L100.0100, L503.7505 ####[facility] [address] [place], [address] Hemoglobin (Bld) [Mass/Vol] 8.3 g/dL Low 13.0-16.5 [facility] Comment on above: Performed By: #### L 500.3400, L300.3900, L500.2500, L501.2450, L503.6005, L501.5200, L300.4310, L501.4021, L100.0100, L503.7505 ####[facility] [address] [facility] [place], [address] IG% 1.300 High 0.0-0.9 [facility] Comment on above: Result Comment: IG% - Immature Granulocytes (promyelocytes, myelocytes andmetamyelocytes) > 1% indicates that a LEFT SHIFT is Present. Performed By: #### L 500.3400, L300.3900, L500.2500, L501.2450, L503.6005, L501.5200, L300.4310, L501.4021, L100.0100, L503.7505 ####[facility] [address] [place], [address] Lymphocytes/100 WBC (Bld) 18.8 % Low 19-41 [facility] Comment on above: Performed By: #### L 500.3400, L300.3900, L500.2500, L501.2450, L503.6005, L501.5200, L300.4310, L501.4021, L100.0100, L503.7505 ####[facility] [address] [place], [address] MCH (RBC) [Entitic mass] 29.4 pg Normal 27.0-32.0 [facility] Comment on above: Performed By: #### L 500.3400, L300.3900, L500.2500, L501.2450, L503.6005, L501.5200, L300.4310, L501.4021, L100.0100, L503.7505 ####[facility] [address] [place], [address] MCHC (RBC) [Mass/Vol] 32.9 g/dL Normal 32-36 [facility] Comment on above: Performed By: #### L 500.3400, L300.3900, L500.2500, L501.2450, L503.6005, L501.5200, L300.4310, L501.4021, L100.0100, L503.7505 ####[facility] [address] [place], [address] MCV (RBC) [Entitic vol] 89.4 fL Normal 80-94 [facility] Comment on above: Performed By: #### L 500.3400, L300.3900, L500.2500, L501.2450, L503.6005, L501.5200, L300.4310, L501.4021, L100.0100, L503.7505 ####[facility] [address] [place], [address] Monocytes/100 WBC (Bld) 16.7 % High 0-10 [facility] Comment on above: Performed By: #### L 500.3400, L300.3900, L500.2500, L501.2450, L503.6005, L501.5200, L300.4310, L501.4021, L100.0100, L503.7505 ####[facility] [address] [place], [place], [phone] Neutrophils/100 WBC (Bld) 57.8 % Normal 47-70 [facility] Comment on above: Performed By: #### L 500.3400, L300.3900, L500.2500, L501.2450, L503.6005, L501.5200, L300.4310, L501.4021, L100.0100, L503.7505 ####[facility] [address] [facility] [place], [place], [phone] Nucleated RBC (Bld) [#/Vol] 0 10*3/uL Normal 0-5 [facility] Comment on above: Performed By: #### L 500.3400, L300.3900, L500.2500, L501.2450, L503.6005, L501.5200, L300.4310, L501.4021, L100.0100, L503.7505 ####[facility] [address] [place], [address] Platelet mean volume (Bld) [Entitic vol] 11.5 fL Normal 6.2-12.0 [facility] Comment on above: Performed By: #### L 500.3400, L300.3900, L500.2500, L501.2450, L503.6005, L501.5200, L300.4310, L501.4021, L100.0100, L503.7505 ####[facility] [address] [place], [address] Platelets (Bld) [#/Vol] 115 10*3/uL Low 150-450 [facility] Comment on above: Performed By: #### L 500.3400, L300.3900, L500.2500, L501.2450, L503.6005, L501.5200, L300.4310, L501.4021, L100.0100, L503.7505 ####[facility] [address] [place], [address] RBC (Bld) [#/Vol] 2.82 10*6/uL Low 4.6-6.2 [facility] Comment on above: Performed By: #### L 500.3400, L300.3900, L500.2500, L501.2450, L503.6005, L501.5200, L300.4310, L501.4021, L100.0100, L503.7505 ####[facility] [address] [place], [address] RDW SD 60.7 fl High 35.1-43.9 [facility] Comment on above: Performed By: #### L 500.3400, L300.3900, L500.2500, L501.2450, L503.6005, L501.5200, L300.4310, L501.4021, L100.0100, L503.7505 ####[facility] [address] [place], [address] WBC (Bld) [#/Vol] 5.2 10*3/uL Normal 4.4-11.0 [facility] Comment on above: Performed By: #### L 500.3400, L300.3900, L500.2500, L501.2450, L503.6005, L501.5200, L300.4310, L501.4021, L100.0100, L503.7505 ####[facility] [address] [place], [address] Carbon dioxide, total [Moles /volume] in Central venous bloodOrdered By: Danny Hutton on 01-28-2025 CO2 [Moles/Vol] 22.1 mmol/L 21.0-32.0 [facility] Chest PA and Lateralon 01-28 Chest PA and Lateral Normal [facility] Chloride assayOrdered By: Darin Hutton on 01-28-2025 Chloride [Moles/Vol] 95 mmol/L Low 98-108 [facility] Emergency Department Summary on 01-28-2025 [address] Normal [facility] Eosinophil percentageOrdered By: Danny Hutton on 01-28-2025 Eosinophils/100 WBC (Bld) 4.6 % 0-5 [facility] Erythrocyte distribution wid th ratioOrdered By: Danny Hutton on 01-28-2025 Erythrocyte distribution width (RBC) [Ratio] 18.4 % High 11.6-14.6 [facility] Erythrocyte distribution wid th standard deviationOrdered By: Danny [place] on 01-28-2025 Erythrocyte distribution width (RBC) [Ratio] 60.7 fl High 35.1-43.9 [facility] Glomerular filtration rate ( GFR) estimation/1.73 sq m using serum, plasma, or whole bOrdered By: Danny Hutton on 01-28-2025 GFR/1.73 sq M.predicted among non-blacks MDRD (S/P/Bld) [Vol rate/Area] 73 mL/min/{1.73_m2} >60 [facility] H AND P Exam - Hospitaliston 01-28-2025 H&P Exam - Hospitalist Normal [facility] Hematocrit Auto (Bld) [Volum e fraction]Ordered By: Danny Hutton on 01-28-2025 Hematocrit (Bld) [Volume fraction] 25.2 % Low 40-54 [facility] Hemoglobin measurementOrdere d By: Dannyjersey Hutton on 01-28-2025 Hemoglobin (Bld) [Mass/Vol] 8.3 g/dL Low 13.0-16.5 [facility] Immature granulocytes/100 WB C Auto (Bld)Ordered By: Danny Jack on 01-28-2025 Immature granulocytes/100 WBC (Bld) 1.300 % High 0.0-0.9 [facility] Influenza virus A and B and SARS-CoV-2 (COVID-19) and Respiratory syncytial virus RNAOrdered By: [facility] RehabilitationbrianLukaszLucero on 01-28-2025 SARS-CoV-2 (COVID-19) RNA ANANTH+probe Ql (Unsp spec) [facility] Ketones Test strip Ql (U)Ord ered By: [facility] Re[facility]itationsunnyLucero on 01-28-2025 Ketones Ql (U) Negative Negative [facility] L499.0042on 01-28-2025 Trop T High Sen Normal <=22 [facility] Comment on above: Result Comment: Devonte goodwin via OM: Ordered Performed By: #### L 499.0042 ####[facility] [address] [place], [address] L501.4021on 01-28-2025 Trop T High Sen 13 ng/L Normal <=22 [facility] Comment on above: Performed By: #### L 500.3400, L300.3900, L500.2500, L501.2450, L503.6005, L501.5200, L300.4310, L501.4021, L100.0100, L503.7505 ####[facility] [address] [place], [address] L503.7505on 01-28-2025 Natriuretic peptide B (Bld) [Mass/Vol] 140 pg/mL Normal <=900 [facility] Comment on above: Result Comment: Hear t Failure Unlikely: < 300 pg/mLHeart Failure Likely< 50 Years: > 450 pg/mL50-75 Years: > 900 pg/mL>75 Years: > 1800 pg/mL Performed By: #### L 500.3400, L300.3900, L500.2500, L501.2450, L503.6005, L501.5200, L300.4310, L501.4021, L100.0100, L503.7505 ####[facility] [address] [place], [place], [phone] Lactic Acidon 01-28-2025 Lactate [Moles/Vol] 2.8 mmol/L Invalid Interpretation Code 0.0-2.0 [facility] Comment on above: Result Comment: Crit ical Result(s) Called at: 01/28/2025-09:07 by: Jennifer Marsh.??Results read back by same. Performed By: #### L 503.6005 ####[facility] [address] [place], [address] Lactate [Moles/Vol] 3.4 mmol/L Invalid Interpretation Code 0.0-2.0 [facility] Comment on above: Order Comment: Y Result Comment: Crit ical Result(s) Called at: 01/28/2025-04:24 by: Jennifer Alva.??Results read back by same. Performed By: #### L 500.3400, L300.3900, L500.2500, L501.2450, L503.6005, L501.5200, L300.4310, L501.4021, L100.0100, L503.7505 ####[facility] [address] [facility] [address] [place], [place], [phone] Lipaseon 01-28-2025 Lipase [Catalytic activity/Vol] 33 U/L Normal 13-75 [facility] Comment on above: Result Comment: Pleestuardo bhat note:LIPASE revised reference range effective 22.New Lipase methodology. Expected to produce lower valuesthan the previous assay method.NEW Reference Range: 13 - 75 U/L Performed By: #### L 500.3400, L300.3900, L500.2500, L501.2450, L503.6005, L501.5200, L300.4310, L501.4021, L100.0100, L503.7505 ####[facility] [address] [place], [place], [phone] Liver Profileon 01-28-2025 Albumin [Mass/Vol] 2.5 g/dL Low 3.5-5.0 [facility] Comment on above: Performed By: #### L 500.3400, L300.3900, L500.2500, L501.2450, L503.6005, L501.5200, L300.4310, L501.4021, L100.0100, L503.7505 ####[facility] [address] [place], [place], [phone] ALK PHOS 201 U/L High 40-129 [facility] Comment on above: Performed By: #### L 500.3400, L300.3900, L500.2500, L501.2450, L503.6005, L501.5200, L300.4310, L501.4021, L100.0100, L503.7505 ####[facility] [address] [place], [place], [phone] ALT [Catalytic activity/Vol] 31 U/L Normal <=46 [facility] Comment on above: Performed By: #### L 500.3400, L300.3900, L500.2500, L501.2450, L503.6005, L501.5200, L300.4310, L501.4021, L100.0100, L503.7505 ####[facility] [address] [place], [place], [phone] AST [Catalytic activity/Vol] 58 U/L High <=37 [facility] Comment on above: Performed By: #### L 500.3400, L300.3900, L500.2500, L501.2450, L503.6005, L501.5200, L300.4310, L501.4021, L100.0100, L503.7505 ####[facility] [address] [place], [address] Bilirubin [Mass/Vol] 1.91 mg/dL High 0.00-1.30 [facility] Comment on above: Performed By: #### L 500.3400, L300.3900, L500.2500, L501.2450, L503.6005, L501.5200, L300.4310, L501.4021, L100.0100, L503.7505 ####[facility] [address] [place], [place], [phone] Bilirubin.direct [Mass/Vol] 1.04 mg/dL High 0.00-0.30 [facility] Comment on above: Performed By: #### L 500.3400, L300.3900, L500.2500, L501.2450, L503.6005, L501.5200, L300.4310, L501.4021, L100.0100, L503.7505 ####[facility] [address] [place], [place], [phone] Globulin (S) [Mass/Vol] 3.3 g/dL Normal 2.2-4.2 [facility] Comment on above: Performed By: #### L 500.3400, L300.3900, L500.2500, L501.2450, L503.6005, L501.5200, L300.4310, L501.4021, L100.0100, L503.7505 ####[facility] [address] [place], [address] T PROT 5.9 g/dL Normal 5.9-8.4 [facility] Comment on above: Performed By: #### L 500.3400, L300.3900, L500.2500, L501.2450, L503.6005, L501.5200, L300.4310, L501.4021, L100.0100, L503.7505 ####[facility] [address] [place], [place], [id number] M100.678on 01-28-2025 M100.678 SARS-CoV-2 (COVID 19 ) Negative INFLUENZA A Negative INFLUENZA B Negative RSV PCR Negative Normal [facility] Comment on above: Performed By: #### M 100.678 ####[facility] [address] [facility] [place], [place], [phone] MCV (mean corpuscular volume ) determinationOrdered By: Danny Hutton on 01-28-2025 MCV (RBC) [Entitic vol] 89.4 fL 80-94 [facility] Magnesiumon 01-28-2025 Magnesium [Mass/Vol] 1.7 mg/dL Normal 1.5-2.2 [facility] Comment on above: Performed By: #### L 500.3400, L300.3900, L500.2500, L501.2450, L503.6005, L501.5200, L300.4310, L501.4021, L100.0100, L503.7505 ####[facility] [address] [facility] [place]. [place], [place], [id number] Magnesium measurement (mass/ volume)Ordered By: Danny Hutton on 01-28-2025 Magnesium (Unsp spec) [Mass/Vol] 1.7 mg/dL 1.5-2.2 [facility] Mean corpuscular hemoglobin (MCH) determinationOrdered By: Danny Hutton on 01-28-2025 MCH (RBC) [Entitic mass] 29.4 pg 27.0-32.0 [facility] Monocyte percentageOrdered B y: Danny Hutton on 01-28-2025 Monocytes/100 WBC (Bld) 16.7 % High 0-10 [facility] Mucus LM Ql (Urine sed)Order ed By: Danny Hutton on 01-28-2025 Mucus Ql (Urine sed) 0 SEEN /hpf [facility] Natriuretic peptide.B prohor prachi N-Terminal [Mass/volume] in Serum or PlasmaOrdered By: Danny Hutton on 01-28-2025 Natriuretic peptide.B prohormone N-Terminal [Mass/Vol] 140 pg/mL <900 [facility] Neutrophil percentageOrdered By: Danny Hutton on 01-28-2025 Neutrophils/100 WBC (Bld) 57.8 % 47-70 [facility] Nitrite Test strip Ql (U)Ord ered By: Danny Hutton on 01-28-2025 Nitrite Ql (U) Negative Negative [facility] No Panel InformationOrdered By: Danny Hutton on 01-28-2025 58 U/L High <38 [facility] Partial Thromboplast Timeon 01-28-2025 aPTT Coag (Bld) [Time] 38.4 s High 24.1-36.[address] [facility] Comment on above: Performed By: #### L 500.3400, L300.3900, L500.2500, L501.2450, L503.6005, L501.5200, L300.4310, L501.4021, L100.0100, L503.7505 ####[facility] [address] [place], [place], [address] Platelet countOrdered By: Darin Hutton on 01-28-2025 Platelets (Bld) [#/Vol] 115 10*3/uL Low 150-450 [facility] Potassium measurement (mass/ volume)Ordered By: Danny Hutton on 01-28-2025 Potassium (Unsp spec) [Mass/Vol] 3.4 mmol/L 3.3-5.1 [facility] Protein Test strip Ql (U)Ord ered By: Danny Hutton on 01-28-2025 Protein Ql (U) 100 mg/dl High Negative [facility] Prothrombin Time w/INRon INR Coag (PPP) [Relative time] 1.7 {INR} Normal [facility] Comment on above: Performed By: #### L 500.3400, L300.3900, L500.2500, L501.2450, L503.6005, L501.5200, L300.4310, L501.4021, L100.0100, L503.7505 ####[facility] [address] [place], [place], [id number] PT Coag (PPP) [Time] 20.0 s High 11.7-14.9 [facility] Comment on above: Performed By: #### L 500.3400, L300.3900, L500.2500, L501.2450, L503.6005, L501.5200, L300.4310, L501.4021, L100.0100, L503.7505 ####[facility] [address] [place], [place], [id number] Prothrombin timeOrdered By: Danny Hutton on 01-28-2025 PT Coag (PPP) [Time] 20.0 s High 11.7-14.9 [facility] RBC Auto (Bld) [#/Vol]Ordere d By: Danny Hutton on 01-28-2025 RBC (Bld) [#/Vol] 2.82 10*6/uL Low 4.6-6.2 [facility] Serum creatinine measurement (mass/volume)Ordered By: Danny Hutton on 01-28-2025 Creatinine [Mass/Vol] 1.16 mg/dL 0.70-1.20 [facility] Serum globulin measurementOr dered By: Danny Hutton on 01-28-2025 Globulin (S) [Mass/Vol] 3.3 g/dL 2.2-4.2 [facility] Serum glucose measurement (m ass/volume)Ordered By: Danny Hutton on 01-28-2025 Glucose [Mass/Vol] 93 mg/dL 70-99 [facility] Serum or plasma alanine thomas otransferase (ALT) measurementOrdered By: Danny Hutton on 01-28-2025 ALT [Catalytic activity/Vol] 31 U/L <47 [facility] Serum or plasma albumin roosevelt urement (mass/volume)Ordered By: Danny [place] on 01-28-2025 Albumin [Mass/Vol] 2.5 g/dL Low 3.5-5.0 [facility] Serum or plasma alkaline kendrick sphatase measurementOrdered By: Danny Hutton on 01-28-2025 ALP [Catalytic activity/Vol] 201 U/L High 40-129 [facility] Serum or plasma calcium roosevelt urement (mass/volume)Ordered By: Danny [place] on 01-28-2025 Calcium [Mass/Vol] 8.9 mg/dL 7.6-11.0 [facility] Serum or plasma urea nitroge n measurement (mass/volume)Ordered By: Danny Hutton on 01-28-2025 Urea nitrogen [Mass/Vol] 15 mg/dL 4-19 [facility] Sodium levelOrdered By: Srinath Hutton on 01-28-2025 Sodium [Moles/Vol] 131 mmol/L Low 133-145 [facility] Squamous epithelial cells de tection in urine sediment by light microscopyOrdered By: Danny Hutton on 01-28-2025 Epithelial cells.squamous LM Ql (Urine sed) 0 SEEN /hpf 0-5 [facility] Total proteinOrdered By: Silvano Hutton on 01-28-2025 Protein [Mass/Vol] 5.9 g/dL 5.9-8.4 [facility] Troponin T.cardiac [Mass/vol ume] in Serum or Plasma by High sensitivity methodOrdered By: Danny Hutton on 01-28-2025 Troponin T.cardiac High sensitivity method [Mass/Vol] 13 ng/L <22 [facility] Urinalysis, Completeon 01-28 BACTERIA 1+ /hpf Normal None Seen [facility] Comment on above: Order Comment: COLOR OF URINE MAY AFFECT DIPSTICK RESULTS.DISTILLERY MANAGER TO SPECIFY Performed By: #### L 400.0001 ####[facility] [address] [place], [address] RBC > 100 SEEN Normal 0-5 [facility] Comment on above: Order Comment: COLOR OF URINE MAY AFFECT DIPSTICK RESULTS.DISTILLERY MANAGER TO SPECIFY Performed By: #### L 400.0001 ####[facility] [address] [place], [address] WBC 10-25 SEEN Normal 0-[address] [place] [address] Comment on above: Order Comment: COLOR OF URINE MAY AFFECT DIPSTICK RESULTS.DISTILLERY MANAGER TO SPECIFY Performed By: #### L 400.0001 ####[facility] [address] [place], [address] EPI,SQUAMOUS 0 SEEN Normal 0-[address] [place] [address] Comment on above: Order Comment: COLOR OF URINE MAY AFFECT DIPSTICK RESULTS.DISTILLERY MANAGER TO SPECIFY Performed By: #### L 400.0001 ####[facility] [address] [place], [address] Mucus Ql (Urine sed) 0 SEEN Normal [facility] Comment on above: Order Comment: COLOR OF URINE MAY AFFECT DIPSTICK RESULTS.DISTILLERY MANAGER TO SPECIFY Performed By: #### L 400.0001 ####[facility] [address] [place], [address] Urine clarityOrdered By: Silvano Hutton on 01-28-2025 Clarity (U) Cloudy Clear [facility] Urine color determinationOrd ered By: Danny Hutton on 01-28-2025 Color (U) Lexis Yellow [facility] Urine cultureOrdered By: Silvano Hutton on 01-28-2025 Bacteria identified Cx Nom (U) Vancomycin Resist. E. faecalis Abnormal [facility] Bacteria identified Cx Nom (U) GNR lactose shaft repairer Abnormal [facility] Urine glucose detectionOrder ed By: Danny Hutton on 01-28-2025 Glucose Ql (U) Normal mg/dl Normal [facility] Urine leukocyte esterase det ection by dipstickOrdered By: Danny Hutton on 01-28-2025 Leukocyte esterase Test strip Ql (U) 500 /ul High Negative [facility] Urine pHOrdered By: Danny Santiago on 01-28-2025 pH (U) 8.0 [pH] 5.0 - 8.0 [facility] Urine sediment bacteria coun t by microscopy (number/high power field)Ordered By: Danny Hutton on 01-28-2025 Bacteria LM.HPF (Urine sed) [#/Area] 1 /[HPF] None Seen [facility] Urine specific gravity measu rementOrdered By: Danny Hutton on 01-28-2025 Specific gravity (U) [Rel density] 1.015 1.002-1.030 [facility] Urine urobilinogen measureme ntOrdered By: Danny Hutton on 01-28-2025 Urobilinogen Ql (U) Normal mg/dl Normal [facility] Venous blood ammonia measure mentOrdered By: Danny Hutton on 01-28-2025 Ammonia (P) [Moles/Vol] 108.0 umol/L High 16-60 [facility] White blood cell (WBC) count Ordered By: Danny Hutton on 01-28-2025 WBC (Bld) [#/Vol] 5.2 10*3/uL 4.4-11.0 [facility] White blood cell countOrdere d By: Danny Hutton on 01-28-2025 White blood cell count 10-25 SEEN /hpf 0-5 [facility] Body Fluid Cell Count+Diffon 01-25-[address] [facility] Comment on above: Order Comment: The r eference range and other method performancespecifications have not been established for this bodyfluid. The test must be integrated into the clinicalcontext for interpretation. Result Comment: AMENDED REPORT 01/25/25 1125 OTHER CELL/BF previously reported as: 7 % Performed By: #### L 200.0200, L350.1000, M100.2900, M100.4001, M1 ####[facility] [address] [place], [address] Culture, Anaerobic Any Sourc iliana 01-24-2025 CUAN No growth in 5 days. Normal [facility] Comment on above: Performed By: #### L 200.0200, L350.1000, M100.2900, M100.4001, M1 ####[facility] [address] [place], [address] Anion gap in Serum or Plasma Ordered By: Anurag Irene on 01-21-2025 Anion gap [Moles/Vol] 7 mmol/L 12-16 [facility] BUN/creatinine ratioOrdered By: Anurag Irene on 01-21-2025 Urea nitrogen/Creatinine [Mass ratio] 15.6 mg/mg 05-23 [facility] Bedside Glucoseon 01-21-2025 FINGERSTICK GLU 151 mg/dL High 74-106 [facility] Comment on above: Result Comment: BRISA GEMENT OF PATIENT CARE PER NURSING PROTOCOL Performed By: #### L 501.080 ####[facility] [address] [place], [address] FINGERSTICK GLU 199 mg/dL High 74-106 [facility] Comment on above: Result Comment: BRISA GEMENT OF PATIENT CARE PER NURSING PROTOCOL Performed By: #### L 501.080 ####[facility] [address] [place], [address] Bilirubin, totalOrdered By: Anurag Irene on 01-21-2025 Bilirubin [Mass/Vol] 1.52 mg/dL High 0.00-1.30 [facility] Carbon dioxide, total [Moles /volume] in Central venous bloodOrdered By: Anurag Irene on 01-21-2025 CO2 [Moles/Vol] 29.7 mmol/L 21.0-32.0 [facility] Chloride assayOrdered By: Francois Irene on 01-21-2025 Chloride [Moles/Vol] 96 mmol/L Low 98-108 [facility] Comprehensive Metabolic Prof ilon 01-21-2025 Albumin [Mass/Vol] 2.1 g/dL Low 3.5-5.0 [facility] Comment on above: Performed By: #### L 500.4050 ####[facility] [address] [place], [address] Albumin/Globulin [Mass ratio] 0.8 {ratio} Low 0.9-2.4 [facility] Comment on above: Performed By: #### L 500.4050 ####[facility] [address] [place], [address] ALK PHOS 204 U/L High 40-129 [facility] Comment on above: Performed By: #### L 500.4050 ####[facility] [address] [place], [address] ALT [Catalytic activity/Vol] 28 U/L Normal <=46 [facility] Comment on above: Performed By: #### L 500.4050 ####[facility] [address] [place], [address] AST [Catalytic activity/Vol] 48 U/L High <=37 [facility] Comment on above: Performed By: #### L 500.4050 ####[facility] [address] [place], [address] Bilirubin [Mass/Vol] 1.52 mg/dL High 0.00-1.30 [facility] Comment on above: Performed By: #### L 500.4050 ####[facility] [address] [place], [address] BUN/CRE 15.6 RATIO Normal 10-20 [facility] Comment on above: Performed By: #### L 500.4050 ####[facility] [address] [place], [address] Calcium [Mass/Vol] 8.1 mg/dL Normal 7.6-11.0 [facility] Comment on above: Performed By: #### L 500.4050 ####[facility] [address] [place], [address] Chloride [Moles/Vol] 96 mmol/L Low 98-108 [facility] Comment on above: Performed By: #### L 500.4050 ####[facility] [address] [place], [address] CO2 [Moles/Vol] 29.7 mmol/L Normal 21.0-32.0 [facility] Comment on above: Performed By: #### L 500.4050 ####[facility] [address] [place], [address] Creatinine [Mass/Vol] 0.86 mg/dL Normal 0.70-1.20 [facility] Comment on above: Performed By: #### L 500.4050 ####[facility] [address] [place], [address] ECRCL 114.50 ml/min Normal 50-250 [facility] Comment on above: Performed By: #### L 500.4050 ####[facility] [address] [place], [address] GAP 7 Normal 5-15 [facility] Comment on above: Performed By: #### L 500.4050 ####[facility] [address] [place], [address] GFR/1.73 sq M.predicted among non-blacks MDRD (S/P/Bld) [Vol rate/Area] 100 mL/min/{1.73_m2} Normal >60 [facility] Comment on above: Result Comment: mL/m in/1.73m2 CKD-EPI Creatinine Equation (2020) Performed By: #### L 500.4050 ####[facility] [address] [place], [address] Globulin (S) [Mass/Vol] 2.6 g/dL Normal 2.2-4.2 [facility] Comment on above: Performed By: #### L 500.4050 ####[facility] [address] [place], [address] Glucose [Mass/Vol] 199 mg/dL High 70-99 [facility] Comment on above: Performed By: #### L 500.4050 ####[facility] [address] [place], [address] Potassium [Moles/Vol] 3.1 mmol/L Low 3.3-5.1 [facility] Comment on above: Performed By: #### L 500.4050 ####[facility] [address] [place], [address] Sodium [Moles/Vol] 133 mmol/L Normal 133-145 [facility] Comment on above: Performed By: #### L 500.4050 ####[facility] [address] [place], [address] T PROT 4.7 g/dL Low 5.9-8.4 [facility] Comment on above: Performed By: #### L 500.4050 ####[facility] [address] [place], [address] Urea nitrogen [Mass/Vol] 13 mg/dL Normal 4-19 [facility] Comment on above: Performed By: #### L 500.4050 ####[facility] [address] [place], [address] Glomerular filtration rate ( GFR) estimation/1.73 sq m using serum, plasma, or whole bOrdered By: Anurag Irene on 01-21-2025 GFR/1.73 sq M.predicted among non-blacks MDRD (S/P/Bld) [Vol rate/Area] 100 mL/min/{1.73_m2} >60 [facility] deOrdered By: Anurag Irene on 01-21-2025 Glucose [Mass/Vol] 151 mg/dL High 74-106 [facility] No Panel InformationOrdered By: Anurag Irene on 01-21-2025 48 U/L High <38 [facility] Potassium measurement (mass/ volume)Ordered By: Anurag Irene on 01-21-2025 Potassium (Unsp spec) [Mass/Vol] 3.1 mmol/L Low 3.3-5.1 [facility] Serum creatinine measurement (mass/volume)Ordered By: Anurag Irene on 01-21-2025 Creatinine [Mass/Vol] 0.86 mg/dL 0.70-1.20 [facility] Serum globulin measurementOr dered By: Anurag Irene on 01-21-2025 Globulin (S) [Mass/Vol] 2.6 g/dL 2.2-4.2 [facility] Serum glucose measurement (m ass/volume)Ordered By: Anurag Irene on 01-21-2025 Glucose [Mass/Vol] 199 mg/dL High 70-99 [facility] Serum or plasma alanine thomas otransferase (ALT) measurementOrdered By: Anurag Irene on 01-21-2025 ALT [Catalytic activity/Vol] 28 U/L <47 [facility] Serum or plasma albumin roosevelt urement (mass/volume)Ordered By: Anurag Irene on 01-21-2025 Albumin [Mass/Vol] 2.1 g/dL Low 3.5-5.0 [facility] Serum or plasma albumin/glob ulin mass ratioOrdered By: Anurag Irene on 01-21-2025 Albumin/Globulin [Mass ratio] 0.8 {ratio} Low 0.9-2.4 [facility] Serum or plasma alkaline kendrick sphatase measurementOrdered By: Anurag Irene on 01-21-2025 ALP [Catalytic activity/Vol] 204 U/L High 40-129 [facility] Serum or plasma calcium roosevelt urement (mass/volume)Ordered By: Anurag Irene on 01-21-2025 Calcium [Mass/Vol] 8.1 mg/dL 7.6-11.0 [facility] Serum or plasma urea nitroge n measurement (mass/volume)Ordered By: Anurag Irene on 01-21-2025 Urea nitrogen [Mass/Vol] 13 mg/dL 4-19 [facility] Sodium levelOrdered By: Marni Irene on 01-21-2025 Sodium [Moles/Vol] 133 mmol/L 133-145 [facility] Total proteinOrdered By: [place] Irene on 01-21-2025 Protein [Mass/Vol] 4.7 g/dL Low 5.9-8.4 [facility] Absolute lymphocyte countOrd ered By: Anurag Irene on 01-20-2025 Lymphocytes Auto (Unsp spec) [#/Vol] 1.10 10*3/uL 0.83-4.51 [facility] Automated lymphocyte count a s percentage of total leukocytesOrdered By: Anurag Irene on 01-20-2025 Lymphocytes/100 WBC Auto (Unsp spec) 16.3 % Low 19-41 [facility] Basophil percentageOrdered B y: Anurag Irene on 01-20-2025 Basophils/100 WBC (Bld) 0.6 % 0-1 [facility] Bedside Glucoseon 01-20-2025 FINGERSTICK GLU 206 mg/dL High 74-106 [facility] Comment on above: Result Comment: BRISA GEMENT OF PATIENT CARE PER NURSING PROTOCOL Performed By: #### L 501.080 ####[facility] [address] [facility] [id number] FINGERSTICK GLU 188 mg/dL High [address] [place] [address] Comment on above: Result Comment: BRISA GEMENT OF PATIENT CARE PER NURSING PROTOCOL Performed By: #### L 501.080 ####[facility] [address] [place], [address] FINGERSTICK GLU 167 mg/dL High 74-106 [facility] Comment on above: Result Comment: BRISA GEMENT OF PATIENT CARE PER NURSING PROTOCOL Performed By: #### L 501.080 ####[facility] [address] [place], [address] FINGERSTICK GLU 164 mg/dL High 74-106 [facility] Comment on above: Result Comment: BRISA GEMENT OF PATIENT CARE PER NURSING PROTOCOL Performed By: #### L 501.080 ####[facility] [address] [place], [address] Blood manual differential co mment interpretation (narrative result)Ordered By: Anurag Irene on 01-20-2025 Manual differential comment Marco Antonio (Bld) [Interp] SCANNED [facility] CBC W/Diff, Automatedon 01-02 PLT EST MOD DEC Normal ADEQ [facility] Comment on above: Performed By: #### L 100.0100 ####[facility] [address] [place], [address] SMEAR COMMENT SCANNED Normal [facility] Comment on above: Performed By: #### L 100.0100 ####[facility] [address] [place], [address] Comprehensive Metabolic Prof ilon 01-20-2025 Albumin [Mass/Vol] 2.0 g/dL Low 3.5-5.0 [facility] Comment on above: Performed By: #### L 500.4050 ####[facility] [address] [place], [address] Albumin/Globulin [Mass ratio] 0.7 {ratio} Low 0.9-2.4 [facility] Comment on above: Performed By: #### L 500.4050 ####[facility] [address] [place], [address] ALK PHOS 211 U/L High 40-129 [facility] Comment on above: Performed By: #### L 500.4050 ####[facility] [address] [place], [address] ALT [Catalytic activity/Vol] 32 U/L Normal <=46 [facility] Comment on above: Performed By: #### L 500.4050 ####[facility] [address] [place], [address] AST [Catalytic activity/Vol] 45 U/L High <=37 [facility] Comment on above: Performed By: #### L 500.4050 ####[facility] [address] [place], [address] Bilirubin [Mass/Vol] 1.61 mg/dL High 0.00-1.30 [facility] Comment on above: Performed By: #### L 500.4050 ####[facility] [address] [place], [address] BUN/CRE 13.4 RATIO Normal 10-20 [facility] Comment on above: Performed By: #### L 500.4050 ####[facility] [address] [place], [address] Calcium [Mass/Vol] 8.1 mg/dL Normal 7.6-11.0 [facility] Comment on above: Performed By: #### L 500.4050 ####[facility] [address] [place], [address] Chloride [Moles/Vol] 95 mmol/L Low 98-108 [facility] Comment on above: Performed By: #### L 500.4050 ####[facility] [address] [place], [address] CO2 [Moles/Vol] 30.3 mmol/L Normal 21.0-32.0 [facility] Comment on above: Performed By: #### L 500.4050 ####[facility] [address] [place], [address] Creatinine [Mass/Vol] 0.87 mg/dL Normal 0.70-1.20 [facility] Comment on above: Performed By: #### L 500.4050 ####[facility] [address] [place], [address] ECRCL 112.61 ml/min Normal 50-250 [facility] Comment on above: Performed By: #### L 500.4050 ####[facility] [address] [place], [address] GAP 7 Normal 5-15 [facility] Comment on above: Performed By: #### L 500.4050 ####[facility] [address] [place], [address] GFR/1.73 sq M.predicted among non-blacks MDRD (S/P/Bld) [Vol rate/Area] 100 mL/min/{1.73_m2} Normal >60 [facility] Comment on above: Result Comment: mL/m in/1.73m2 CKD-EPI Creatinine Equation (2020) Performed By: #### L 500.4050 ####[facility] [address], [address] Globulin (S) [Mass/Vol] 2.9 g/dL Normal 2.2-4.2 [facility] Comment on above: Performed By: #### L 500.4050 ####[facility] [address] [place], [address] Glucose [Mass/Vol] 195 mg/dL High 70-99 [facility] Comment on above: Performed By: #### L 500.4050 ####[facility] [address], [address] Potassium [Moles/Vol] 3.1 mmol/L Low 3.3-5.1 [facility] Comment on above: Performed By: #### L 500.4050 ####[facility] [address] [place], [place], [id number] Sodium [Moles/Vol] 133 mmol/L Normal 133-145 [facility] Comment on above: Performed By: #### L 500.4050 ####[facility] [address] [place], [place], [id number] T PROT 4.9 g/dL Low 5.9-8.4 [facility] Comment on above: Performed By: #### L 500.4050 ####[facility] [address] [place], [place], [id number] Urea nitrogen [Mass/Vol] 12 mg/dL Normal 4-19 [facility] Comment on above: Performed By: #### L 500.4050 ####[facility] [address] [place], [place], [id number] Eosinophil percentageOrdered By: Anurag Irene on 01-20-2025 Eosinophils/100 WBC (Bld) 6.5 % High 0-5 [facility] Erythrocyte distribution wid th ratioOrdered By: Anurag Irene on 01-20-2025 Erythrocyte distribution width (RBC) [Ratio] 18.3 % High 11.6-14.6 [facility] Erythrocyte distribution wid th standard deviationOrdered By: Anurag Irene on 01-20-2025 Erythrocyte distribution width (RBC) [Ratio] 58.5 fl High 35.1-43.9 [facility] Hematocrit Auto (Bld) [Volum e fraction]Ordered By: Anurag Irene on 01-20-2025 Hematocrit (Bld) [Volume fraction] 22.9 % Low 40-54 [facility] Hemoglobin measurementOrdere d By: Anurag Irene on 01-20-2025 Hemoglobin (Bld) [Mass/Vol] 7.7 g/dL Low 13.0-16.5 [facility] Immature granulocytes/100 WB C Auto (Bld)Ordered By: Anurag Irene on 01-20-2025 Immature granulocytes/100 WBC (Bld) 1.200 % High 0.0-0.9 [facility] MCV (mean corpuscular volume ) determinationOrdered By: Anurag Irene on 01-20-2025 MCV (RBC) [Entitic vol] 88.1 fL 80-94 [facility] Mean corpuscular hemoglobin (MCH) determinationOrdered By: Anurag Irene on 01-20-2025 MCH (RBC) [Entitic mass] 29.6 pg 27.0-32.0 [facility] Monocyte percentageOrdered B y: Anurag Irene on 01-20-2025 Monocytes/100 WBC (Bld) 11.9 % High 0-10 [facility] Neutrophil percentageOrdered By: Anurag Irene on 01-20-2025 Neutrophils/100 WBC (Bld) 63.5 % 47-70 [facility] Platelet countOrdered By: Francois Irene on 01-20-2025 Platelets (Bld) [#/Vol] 93 10*3/uL Low 150-450 [facility] Platelet estimateOrdered By: Anurag Irene on 01-20-2025 Platelets LM Ql (Bld) MOD [facility] RBC Auto (Bld) [#/Vol]Ordere d By: Anurag Irene on 01-20-2025 RBC (Bld) [#/Vol] 2.60 10*6/uL Low 4.6-6.2 [facility] White blood cell (WBC) count Ordered By: Anurag Irene on 01-20-2025 WBC (Bld) [#/Vol] 6.8 10*3/uL 4.4-11.0 [facility] Activated partial thrombopla stin time (aPTT) in platelet poor plasma by coagulation aOrdered By: Rosendo Renee on 01-19-2025 aPTT Coag (PPP) [Time] 46.6 s High 24.1-36.[address] [facility] Albumin, Serumon 01-19-2025 Albumin [Mass/Vol] 2.2 g/dL Low 3.5-5.0 [facility] Comment on above: Performed By: #### L 300.3900, L501.1800, L501.2300, L300.4310, L501.5200 ####[facility] [address] [place], [address] Bedside Glucoseon 01-19-2025 FINGERSTICK GLU 225 mg/dL High 74-106 [facility] Comment on above: Result Comment: BRISA GEMENT OF PATIENT CARE PER NURSING PROTOCOL Performed By: #### L 501.080 ####[facility] [address] [place], [address] FINGERSTICK GLU 268 mg/dL High 74-106 [facility] Comment on above: Result Comment: BRISA GEMENT OF PATIENT CARE PER NURSING PROTOCOL Performed By: #### L 501.080 ####[facility] [address] [place], [address] FINGERSTICK GLU 187 mg/dL High -106 [facility] Comment on above: Result Comment: BRISA GEMENT OF PATIENT CARE PER NURSING PROTOCOL Performed By: #### L 501.080 ####[facility] [address] [place], [address] FINGERSTICK GLU 198 mg/dL High [facility]106 [facility] Comment on above: Result Comment: BRISA GEMENT OF PATIENT CARE PER NURSING PROTOCOL Performed By: #### L 501.080 ####[facility] [address] [place], [address] Bilirubin directOrdered By: Anurag Irene on 01-19-2025 Bilirubin.direct [Mass/Vol] 1.00 mg/dL High 0.00-0.30 [facility] Bilirubin, Directon 01-20-20 25 Bilirubin.direct [Mass/Vol] 1.00 mg/dL High 0.00-0.30 [facility] Comment on above: Performed By: #### L 501.4700, L100.0100, L500.4050 ####[facility] [address] [place], [address] Body Fluid Culton 01-19-2025 BFC Culture exhibits no growth. Normal [facility] Comment on above: Performed By: #### L 200.0200, L350.1000, M100.2900, M100.4001, M100.2000 ####[facility] [address] [place], [address] CBC W/Diff, Automatedon 01-02 Absolute Lymph 1.08 X10 3/uL Normal 0.83-4.51 [facility] Comment on above: Performed By: #### L 501.4700, L100.0100, L500.4050 ####[facility] [address] [place], [address] Absolute Neut 5.4 X10 3/uL Normal 2.0-7.7 [facility] Comment on above: Performed By: #### L 501.4700, L100.0100, L500.4050 ####[facility] [address] [place], [address] Basophils/100 WBC (Bld) 0.5 % Normal 0-1 [facility] Comment on above: Performed By: #### L 501.4700, L100.0100, L500.4050 ####[facility] [address] [place], [address] Eosinophils/100 WBC (Bld) 5.8 % High 0-5 [facility] Comment on above: Performed By: #### L 501.4700, L100.0100, L500.4050 ####[facility] [address] [place], [address] Erythrocyte distribution width (RBC) [Ratio] 18.6 % High 11.6-14.6 [facility] Comment on above: Performed By: #### L 501.4700, L100.0100, L500.4050 ####[facility] [address] [place], [address] Hematocrit (Bld) [Volume fraction] 22.3 % Low 40-54 [facility] Comment on above: Performed By: #### L 501.4700, L100.0100, L500.4050 ####[facility] [address] [place], [address] Hemoglobin (Bld) [Mass/Vol] 7.6 g/dL Low 13.0-16.5 [facility] Comment on above: Performed By: #### L 501.4700, L100.0100, L500.4050 ####[facility] [address] [place], [address] IG% 1.400 High 0.0-0.9 [facility] Comment on above: Result Comment: IG% - Immature Granulocytes (promyelocytes, myelocytes andmetamyelocytes) > 1% indicates that a LEFT SHIFT is Present. Performed By: #### L 501.4700, L100.0100, L500.4050 ####[facility] [address] [place], [address] Lymphocytes/100 WBC (Bld) 13.6 % Low 19-41 [facility] Comment on above: Performed By: #### L 501.4700, L100.0100, L500.4050 ####[facility] [address] [place], [address] MCH (RBC) [Entitic mass] 30.3 pg Normal 27.0-32.0 [facility] Comment on above: Performed By: #### L 501.4700, L100.0100, L500.4050 ####[facility] [address] [place], [address] MCHC (RBC) [Mass/Vol] 34.1 g/dL Normal 32-36 [facility] Comment on above: Performed By: #### L 501.4700, L100.0100, L500.4050 ####[facility] [address] [place], [address] MCV (RBC) [Entitic vol] 88.8 fL Normal 80-94 [facility] Comment on above: Performed By: #### L 501.4700, L100.0100, L500.4050 ####[facility] [address] [place], [address] Monocytes/100 WBC (Bld) 11.0 % High 0-10 [facility] Comment on above: Performed By: #### L 501.4700, L100.0100, L500.4050 ####[facility] [address] [place], [address] Neutrophils/100 WBC (Bld) 67.7 % Normal 47-70 [facility] Comment on above: Performed By: #### L 501.4700, L100.0100, L500.4050 ####[facility] [address] [place], [address] Nucleated RBC (Bld) [#/Vol] 0 10*3/uL Normal 0-5 [facility] Comment on above: Performed By: #### L 501.4700, L100.0100, L500.4050 ####[facility] [address] [place], [address] Platelet mean volume (Bld) [Entitic vol] 11.1 fL Normal 6.2-12.0 [facility] Comment on above: Performed By: #### L 501.4700, L100.0100, L500.4050 ####[facility] [address] [place], [address] Platelets (Bld) [#/Vol] 107 10*3/uL Low 150-450 [facility] Comment on above: Performed By: #### L 501.4700, L100.0100, L500.4050 ####[facility] [address] [place], [address] RBC (Bld) [#/Vol] 2.51 10*6/uL Low 4.6-6.2 [facility] Comment on above: Performed By: #### L 501.4700, L100.0100, L500.4050 ####[facility] [address] [place], [address] RDW SD 59.0 fl High 35.1-43.9 [facility] Comment on above: Performed By: #### L 501.4700, L100.0100, L500.4050 ####[facility] [address] [place], [address] WBC (Bld) [#/Vol] 7.9 10*3/uL Normal 4.4-11.0 [facility] Comment on above: Performed By: #### L 501.4700, L100.0100, L500.4050 ####[facility] [address] [place], [address] Comprehensive Metabolic [facility] 01-19-2025 Albumin [Mass/Vol] 2.2 g/dL Low 3.5-5.0 [facility] Comment on above: Performed By: #### L 501.4700, L100.0100, L500.4050 ####[facility] [address] [place], [address] Albumin/Globulin [Mass ratio] 0.9 {ratio} Normal 0.9-2.4 [facility] Comment on above: Performed By: #### L 501.4700, L100.0100, L500.4050 ####[facility] [address] [place], [address] ALK PHOS 225 U/L High 40-129 [facility] Comment on above: Performed By: #### L 501.4700, L100.0100, L500.4050 ####[facility] [address] [place], [address] ALT [Catalytic activity/Vol] 34 U/L Normal <=46 [facility] Comment on above: Performed By: #### L 501.4700, L100.0100, L500.4050 ####[facility] [address] [place], [address] AST [Catalytic activity/Vol] 52 U/L High <=37 [facility] Comment on above: Performed By: #### L 501.4700, L100.0100, L500.4050 ####[facility] [address] [place], [address] Bilirubin [Mass/Vol] 1.70 mg/dL High 0.00-1.30 [facility] Comment on above: Performed By: #### L 501.4700, L100.0100, L500.4050 ####[facility] [address] [place], [address] BUN/CRE 10.4 RATIO Normal 10-20 [facility] Comment on above: Performed By: #### L 501.4700, L100.0100, L500.4050 ####[facility] [address] [place], [address] Calcium [Mass/Vol] 7.9 mg/dL Normal 7.6-11.0 [facility] Comment on above: Performed By: #### L 501.4700, L100.0100, L500.4050 ####[facility] [address] [place], [address] Chloride [Moles/Vol] 94 mmol/L Low 98-108 [facility] Comment on above: Performed By: #### L 501.4700, L100.0100, L500.4050 ####[facility] [address] [place], [address] CO2 [Moles/Vol] 30.7 mmol/L Normal 21.0-32.0 [facility] Comment on above: Performed By: #### L 501.4700, L100.0100, L500.4050 ####[facility] [address] [place], [address] Creatinine [Mass/Vol] 1.05 mg/dL Normal 0.70-1.20 [facility] Comment on above: Performed By: #### L 501.4700, L100.0100, L500.4050 ####[facility] [address] [place], [address] ECRCL 93.35 ml/min Normal 50-250 [facility] Comment on above: Performed By: #### L 501.4700, L100.0100, L500.4050 ####[facility] [address] [place], [address] GAP 7 Normal 5-15 [facility] Comment on above: Performed By: #### L 501.4700, L100.0100, L500.4050 ####[facility] [address] [place], [address] GFR/1.73 sq M.predicted among non-blacks MDRD (S/P/Bld) [Vol rate/Area] 82 mL/min/{1.73_m2} Normal >60 [facility] Comment on above: Result Comment: mL/m in/1.73m2 CKD-EPI Creatinine Equation (2020) Performed By: #### L 501.4700, L100.0100, L500.4050 ####[facility] [address] [place], [address] Globulin (S) [Mass/Vol] 2.6 g/dL Normal 2.2-4.2 [facility] Comment on above: Performed By: #### L 501.4700, L100.0100, L500.4050 ####[facility] [address] [place], [address] Glucose [Mass/Vol] 220 mg/dL High 70-99 [facility] Comment on above: Performed By: #### L 501.4700, L100.0100, L500.4050 ####[facility] [address] [place], [address] Potassium [Moles/Vol] 3.0 mmol/L Low 3.3-5.1 [facility] Comment on above: Performed By: #### L 501.4700, L100.0100, L500.4050 ####[facility] [address] [place], [address] Sodium [Moles/Vol] 132 mmol/L Low 133-145 [facility] Comment on above: Performed By: #### L 501.4700, L100.0100, L500.4050 ####[facility] [address] [place], [address] T PROT 4.8 g/dL Low 5.9-8.4 [facility] Comment on above: Performed By: #### L 501.4700, L100.0100, L500.4050 ####[facility] [address] [place], [address] Urea nitrogen [Mass/Vol] 11 mg/dL Normal 4-19 [facility] Comment on above: Performed By: #### L 501.4700, L100.0100, L500.4050 ####[facility] [address] [place], [address] Gram Stainon 01-19-2025 GS Centrifuged Specimen ? Culture performed on centrifuged specimen Gram Stain No organisms seen No cells seen Normal [facility] Comment on above: Performed By: #### L 200.0200, L350.1000, M100.2900, M100.4001, M100.2000 ####[facility] [address] [place], [address] Liver Profileon 01-19-2025 ALB Normal 3.5-5.0 [facility] Comment on above: Result Comment: MOVE D TO DIFFERENT REQ- SEE C50 Performed By: #### L 500.3400 ####[facility] [address] [place], [address] ALK PHOS Normal 40-129 [facility] Comment on above: Result Comment: MOVE D TO DIFFERENT REQ- SEE C50 Performed By: #### L 500.3400 ####[facility] [address] [place], [address] ALT Normal <=46 [facility] Comment on above: Result Comment: MOVE D TO DIFFERENT REQ- SEE C50 Performed By: #### L 500.3400 ####[facility] [address] [place], [address] AST Normal <=37 [facility] Comment on above: Result Comment: MOVE D TO DIFFERENT REQ- SEE C50 Performed By: #### L 500.3400 ####[facility] [address] [place], [address] D BILI Normal 0.00-0.30 [facility] Comment on above: Result Comment: MOVE D TO DIFFERENT REQ- SEE C50 Performed By: #### L 500.3400 ####[facility] [address] [place], [address] T BILI Normal 0.00-1.30 [facility] Comment on above: Result Comment: MOVE D TO DIFFERENT REQ- SEE C50 Performed By: #### L 500.3400 ####[facility] [address] [place], [address] T PROT Normal 5.9-8.4 [facility] Comment on above: Result Comment: MOVE D TO DIFFERENT REQ- SEE C50 Performed By: #### L 500.3400 ####[facility] [address] [place], [address] Magnesiumon 01-19-2025 Magnesium [Mass/Vol] 1.7 mg/dL Normal 1.5-2.2 [facility] Comment on above: Performed By: #### L 300.3900, L501.1800, L501.2300, L300.4310, L501.5200 ####[facility] [address] [place], [address] Magnesium measurement (mass/ volume)Ordered By: Rosendo Renee on 01-19-2025 Magnesium (Unsp spec) [Mass/Vol] 1.7 mg/dL 1.5-2.2 [facility] Partial Thromboplast Timeon 01-19-2025 aPTT Coag (Bld) [Time] 46.6 s High 24.1-36.[address] [facility] Comment on above: Performed By: #### L 300.3900, L501.1800, L501.2300, L300.4310, L501.5200 ####[facility] [address] [place], [address] Phosphoruson 01-19-2025 Phosphate [Mass/Vol] 3.5 mg/dL Normal 2.7-4.5 [facility] Comment on above: Performed By: #### L 300.3900, L501.1800, L501.2300, L300.4310, L501.5200 ####[facility] [address] [place], [address] Prothrombin Time w/INRon INR Coag (PPP) [Relative time] 2.0 {INR} Normal [facility] Comment on above: Performed By: #### L 300.3900, L501.1800, L501.2300, L300.4310, L501.5200 ####[facility] [address] [place], [address] PT Coag (PPP) [Time] 22.8 s High 11.7-14.9 [facility] Comment on above: Performed By: #### L 300.3900, L501.1800, L501.2300, L300.4310, L501.5200 ####[facility] [address] [place], [address] Prothrombin timeOrdered By: Rosendo Renee on 01-19-2025 PT Coag (PPP) [Time] 22.8 s High 11.7-14.9 [facility] Abdomen Limitedon 01-18-[address] [facility] Anaerobic cultureOrdered By: Anurag Irene on 01-18-2025 Bacteria identified Anaer cx Nom (Unsp spec) No growth in [address] [facility] Basic Metabolic Profile (BMP )on 01-18-2025 BUN/CRE 9.8 RATIO Low 10-20 [facility] Comment on above: Performed By: #### L 500.2500 ####[facility] [address] [place], [address] Calcium [Mass/Vol] 7.7 mg/dL Normal 7.6-11.0 [facility] Comment on above: Performed By: #### L 500.2500 ####[facility] [address] [place], [address] Chloride [Moles/Vol] 92 mmol/L Low 98-108 [facility] Comment on above: Performed By: #### L 500.2500 ####[facility] [address] [place], [address] CO2 [Moles/Vol] 31.5 mmol/L Normal 21.0-32.0 [facility] Comment on above: Performed By: #### L 500.2500 ####[facility] [address] [place], [address] Creatinine [Mass/Vol] 0.85 mg/dL Normal 0.70-1.20 [facility] Comment on above: Performed By: #### L 500.2500 ####[facility] [address] [place], [address] ECRCL 116.49 ml/min Normal 50-250 [facility] Comment on above: Performed By: #### L 500.2500 ####[facility] [address] [place], [address] GAP 8 Normal 5-15 [facility] Comment on above: Performed By: #### L 500.2500 ####[facility] [address] [place], [address] GFR/1.73 sq M.predicted among non-blacks MDRD (S/P/Bld) [Vol rate/Area] 101 mL/min/{1.73_m2} Normal >60 [facility] Comment on above: Result Comment: mL/m in/1.73m2 CKD-EPI Creatinine Equation (2020) Performed By: #### L 500.2500 ####[facility] [address] [place], [address] Glucose [Mass/Vol] 228 mg/dL High 70-99 [facility] Comment on above: Performed By: #### L 500.2500 ####[facility] [address] [place], [address] Potassium [Moles/Vol] 2.8 mmol/L Low 3.3-5.1 [facility] Comment on above: Performed By: #### L 500.2500 ####[facility] [address] [place], [address] Sodium [Moles/Vol] 132 mmol/L Low 133-145 [facility] Comment on above: Performed By: #### L 500.2500 ####[facility] [address] [place], [address] Urea nitrogen [Mass/Vol] 8 mg/dL Normal 4-19 [facility] Comment on above: Performed By: #### L 500.2500 ####[facility] [address] [place], [address] Bedside Glucoseon 01-18-2025 FINGERSTICK GLU 250 mg/dL High [facility]106 [facility] Comment on above: Result Comment: BRISA GEMENT OF PATIENT CARE PER NURSING PROTOCOL Performed By: #### L 501.080 ####[facility] [address] [facility] [address] FINGERSTICK GLU 158 mg/dL High [facility] [facility] Comment on above: Result Comment: BRISA GEMENT OF PATIENT CARE PER NURSING PROTOCOL Performed By: #### L 501.080 ####[facility] [address] [place], [address] FINGERSTICK GLU 142 mg/dL High [address] [place] [address] Comment on above: Result Comment: BRISA GEMENT OF PATIENT CARE PER NURSING PROTOCOL Performed By: #### L 501.080 ####[facility] [address] [facility] [address] FINGERSTICK GLU 171 mg/dL High [facility]106 [facility] Comment on above: Result Comment: BRISA GEMENT OF PATIENT CARE PER NURSING PROTOCOL Performed By: #### L 501.080 ####[facility] [address] [place], [address] Body fluid appearance (nomin al result)Ordered By: Anurag Irene on 01-18-2025 Appearance (Body fld) CLEAR [facility] Body fluid color determinati onOrdered By: Anurag Irene on 01-18-2025 Color (Body fld) LT YEL [facility] Body fluid cultureOrdered By : Anurag Irene on 01-18-2025 Microbial culture, body fluid Culture exhibits no growth. [facility] Body fluid leukocytes count (number/volume)Ordered By: Anurag Irene on 01-18-2025 WBC (Body fld) [#/Vol] 0.143 10*3/uL [facility] Body fluid lymphocytes/100 l eukocytesOrdered By: Anurag Irene on 01-18-2025 Lymphocytes/100 WBC (Body fld) 24 % [facility] Body fluid macrophage countO rdered By: Anurag Irene on 01-18-2025 Macrophages (Body fld) [#/Vol] 46 % [facility] Body fluid mesothelial cell percentageOrdered By: Anurag Irene on 01-18-2025 Mesothelial cells/100 WBC (Body fld) 7 % [facility] Body fluid mononuclear cell percentageOrdered By: Anurag Irene on 01-18-2025 Mononuclear cells/100 WBC (Body fld) 75.6 % [facility] Body fluid other cell count as percentage of leukocytesOrdered By: Anurag Irene on 01-18-2025 Other cells/100 WBC (Body fld) 7 % [facility] Other cells/100 WBC (Body fld) PRINCIPAL EXAMINER [facility] Body fluid protein measureme nt (mass/volume)Ordered By: Anurag Irene on 01-18-2025 Protein (Body fld) [Mass/Vol] 0.3 g/dL Not Establ. [facility] Body fluid segmented neutrop hils count (number/volume)Ordered By: Anurag Irene on 01-18-2025 Segmented neutrophils (Body fld) [#/Vol] 20 % [facility] Body fluid total cell countO rdered By: Anurag Irene on 01-18-2025 Cells Counted Total (Body fld) [#] 0.172 10^3/ul [facility] CBC W/Diff, Automatedon 01-02 Absolute Lymph 1.13 X10 3/uL Normal 0.83-4.51 [facility] Comment on above: Performed By: #### L 100.0100 ####[facility] [address] [place], [place], [id number] Absolute Neut 5.5 X10 3/uL Normal 2.0-7.7 [facility] Comment on above: Performed By: #### L 100.0100 ####[facility] [address] [place], [address] Basophils/100 WBC (Bld) 0.6 % Normal 0-1 [facility] Comment on above: Performed By: #### L 100.0100 ####[facility] [address] [place], [address] Eosinophils/100 WBC (Bld) 6.1 % High 0-5 [facility] Comment on above: Performed By: #### L 100.0100 ####[facility] [address] [place], [address] Erythrocyte distribution width (RBC) [Ratio] 18.7 % High 11.6-14.6 [facility] Comment on above: Performed By: #### L 100.0100 ####[facility] [address] [place], [address] Hematocrit (Bld) [Volume fraction] 22.6 % Low 40-54 [facility] Comment on above: Performed By: #### L 100.0100 ####[facility] [address] [place], [address] Hemoglobin (Bld) [Mass/Vol] 7.7 g/dL Low 13.0-16.5 [facility] Comment on above: Performed By: #### L 100.0100 ####[facility] [address] [place], [address] IG% 1.200 High 0.0-0.9 [facility] Comment on above: Result Comment: IG% - Immature Granulocytes (promyelocytes, myelocytes andmetamyelocytes) > 1% indicates that a LEFT SHIFT is Present. Performed By: #### L 100.0100 ####[facility] [address] [place], [address] Lymphocytes/100 WBC (Bld) 14.0 % Low 19-41 [facility] Comment on above: Performed By: #### L 100.0100 ####[facility] [address] [place], [address] MCH (RBC) [Entitic mass] 30.1 pg Normal 27.0-32.0 [facility] Comment on above: Performed By: #### L 100.0100 ####[facility] [address] [place], [address] MCHC (RBC) [Mass/Vol] 34.1 g/dL Normal 32-36 [facility] Comment on above: Performed By: #### L 100.0100 ####[facility] [address] [place], [address] MCV (RBC) [Entitic vol] 88.3 fL Normal 80-94 [facility] Comment on above: Performed By: #### L 100.0100 ####[facility] [address] [place], [address] Monocytes/100 WBC (Bld) 10.0 % Normal 0-10 [facility] Comment on above: Performed By: #### L 100.0100 ####[facility] [address] [place], [address] Neutrophils/100 WBC (Bld) 68.1 % Normal 47-70 [facility] Comment on above: Performed By: #### L 100.0100 ####[facility] [address] [place], [address] Nucleated RBC (Bld) [#/Vol] 0 10*3/uL Normal 0-5 [facility] Comment on above: Performed By: #### L 100.0100 ####[facility] [address] [place], [address] Platelet mean volume (Bld) [Entitic vol] 10.5 fL Normal 6.2-12.0 [facility] Comment on above: Performed By: #### L 100.0100 ####[facility] [address] [place], [address] Platelets (Bld) [#/Vol] 107 10*3/uL Low 150-450 [facility] Comment on above: Performed By: #### L 100.0100 ####[facility] [address] [place], [address] RBC (Bld) [#/Vol] 2.56 10*6/uL Low 4.6-6.2 [facility] Comment on above: Performed By: #### L 100.0100 ####[facility] [address] [place], [address] RDW SD 58.9 fl High 35.1-43.9 [facility] Comment on above: Performed By: #### L 100.0100 ####[facility] [address] [place], [address] WBC (Bld) [#/Vol] 8.1 10*3/uL Normal 4.4-11.0 [facility] Comment on above: Performed By: #### L 100.0100 ####[facility] [address] [place], [address] Cytology report of Body flui d Cyto stainOrdered By: Anurag Irene on 01-18-2025 Cytology report Cyto stain Doc (Body fld) SEE PATHOLOGY REPORT [facility] Cytology, Body Fluid / CSFon 01-18-2025 CYTOLOGY,BF/CSF SEE PATHOLOGY REPORT Normal [facility] Comment on above: Result Comment: Spec imen submitted to Anatomical Pathology Department fortesting. Performed By: #### L 200.0200, L350.1000, M100.2900, M100.4001, M100.2000 ####[facility] [address] [place], [address] Glucose, Body Fluidon 2024 GLUC, BODY FLD 154 mg/dL Normal Not Establ. [facility] Comment on above: Performed By: #### L 503.0100, L503.0300 ####[facility] [address] [place], [address] Gram stainOrdered By: Anuradha Irene on 01-18-2025 Microscopic observation Gram stain Nom (Unsp spec) [facility] Magnesiumon 01-18-2025 Magnesium [Mass/Vol] 1.6 mg/dL Normal 1.5-2.2 [facility] Comment on above: Performed By: #### L 501.2300, L501.5200 ####[facility] [address] [place], [address] Monocyte detectionOrdered By : Anurag Irene on 01-18-2025 Monocytes/100 WBC (Bld) 3 % [facility] No Panel InformationOrdered By: Anurag Irene on 01-18-2025 218 /mm3 [facility] SEE COMMENT [facility] Paracentesis with USon 01-18 Paracentesis with US Normal [facility] Pathologist interpretation o f Body fluid testsOrdered By: Anurag Irene on 01-18-2025 Pathologist interpretation (Body fld) [Interp] Reviewed [facility] Phosphoruson 01-18-2025 Phosphate [Mass/Vol] 3.7 mg/dL Normal 2.7-4.5 [facility] Comment on above: Performed By: #### L 501.2300, L501.5200 ####[facility] [address] [place], [address] Protein, Body Fluidon 2024 Protein [Mass/Vol] 0.3 g/dL Normal Not Establ. [facility] Comment on above: Performed By: #### L 503.0100, L503.0300 ####[facility] [address] [place], [address] Prothrombin Time w/INRon INR Coag (PPP) [Relative time] 2.0 {INR} Normal [facility] Comment on above: Performed By: #### L 300.3900 ####[facility] [address] [place], [address] PT Coag (PPP) [Time] 22.9 s High 11.7-14.9 [facility] Comment on above: Performed By: #### L 300.3900 ####[facility] [address] [place], [address] Special Stain Group IIon Special Stain Group II Normal [facility] Comment on above: Performed By: #### P SSII ####[facility] [address] [place], [address] Specimen source identificati on of body fluidOrdered By: Anurag Irene on 01-18-2025 Specimen source Nom (Body fld) PERITONEAL FLUID [facility] Stool Occult Blood iFOBon STOB Negative Normal [facility] Comment on above: Performed By: #### M 100.7900 ####[facility] [address] [place], [address] Stool gastrointestinal hemog lobin detection by immunologic methodOrdered By: Cielo Tovar on 01-18-2025 Lower GI hemoglobin IA Ql (Stl) [facility] Bedside Glucoseon 01-17-2025 FINGERSTICK GLU 180 mg/dL High 74-106 [facility] Comment on above: Result Comment: BRISA GEMENT OF PATIENT CARE PER NURSING PROTOCOL Performed By: #### L 501.080 ####[facility] [address] [place], [address] FINGERSTICK GLU 236 mg/dL High [address] [facility] Comment on above: Result Comment: BRISA GEMENT OF PATIENT CARE PER NURSING PROTOCOL Performed By: #### L 501.080 ####[facility] [address] [place], [address] FINGERSTICK GLU 141 mg/dL High 74-106 [facility] Comment on above: Result Comment: BRISA GEMENT OF PATIENT CARE PER NURSING PROTOCOL Performed By: #### L 501.080 ####[facility] [address] [place], [address] FINGERSTICK GLU 173 mg/dL High 74-106 [facility] Comment on above: Result Comment: BRISA RENTERIAGUNJAN OF PATIENT CARE PER NURSING PROTOCOL Performed By: #### L 501.080 ####[facility] [address] [place], [address] CBC W/Diff, Automatedon 01-02 Absolute Lymph 1.09 X10 3/uL Normal 0.83-4.51 [facility] Comment on above: Performed By: #### L 100.0100 ####[facility] [address] [place], [address] Absolute Neut 5.7 X10 3/uL Normal 2.0-7.7 [facility] Comment on above: Performed By: #### L 100.0100 ####[facility] [address] [place], [address] Basophils/100 WBC (Bld) 0.5 % Normal 0-1 [facility] Comment on above: Performed By: #### L 100.0100 ####[facility] [address] [place], [address] Eosinophils/100 WBC (Bld) 6.8 % High 0-5 [facility] Comment on above: Performed By: #### L 100.0100 ####[facility] [address] [place], [address] Erythrocyte distribution width (RBC) [Ratio] 18.8 % High 11.6-14.6 [facility] Comment on above: Performed By: #### L 100.0100 ####[facility] [address] [place], [address] Hematocrit (Bld) [Volume fraction] 22.2 % Low 40-54 [facility] Comment on above: Performed By: #### L 100.0100 ####[facility] [address] [place], [address] Hemoglobin (Bld) [Mass/Vol] 7.5 g/dL Low 13.0-16.5 [facility] Comment on above: Performed By: #### L 100.0100 ####[facility] [address] [place], [address] IG% 1.100 High 0.0-0.9 [facility] Comment on above: Result Comment: IG% - Immature Granulocytes (promyelocytes, myelocytes andmetamyelocytes) > 1% indicates that a LEFT SHIFT is Present. Performed By: #### L 100.0100 ####[facility] [address] [place], [address] Lymphocytes/100 WBC (Bld) 12.9 % Low 19-41 [facility] Comment on above: Performed By: #### L 100.0100 ####[facility] [address] [place], [address] MCH (RBC) [Entitic mass] 30.0 pg Normal 27.0-32.0 [facility] Comment on above: Performed By: #### L 100.0100 ####[facility] [address] [place], [address] MCHC (RBC) [Mass/Vol] 33.8 g/dL Normal 32-36 [facility] Comment on above: Performed By: #### L 100.0100 ####[facility] [address] [place], [address] MCV (RBC) [Entitic vol] 88.8 fL Normal 80-94 [facility] Comment on above: Performed By: #### L 100.0100 ####[facility] [address] [place], [address] Monocytes/100 WBC (Bld) 11.5 % High 0-10 [facility] Comment on above: Performed By: #### L 100.0100 ####[facility] [address] [place], [address] Neutrophils/100 WBC (Bld) 67.2 % Normal 47-70 [facility] Comment on above: Performed By: #### L 100.0100 ####[facility] [address] [place], [address] Nucleated RBC (Bld) [#/Vol] 0 10*3/uL Normal 0-5 [facility] Comment on above: Performed By: #### L 100.0100 ####[facility] [address] [place], [address] Platelet mean volume (Bld) [Entitic vol] 10.7 fL Normal 6.2-12.0 [facility] Comment on above: Performed By: #### L 100.0100 ####[facility] [address] [place], [address] Platelets (Bld) [#/Vol] 109 10*3/uL Low 150-450 [facility] Comment on above: Performed By: #### L 100.0100 ####[facility] [address] [place], [address] RBC (Bld) [#/Vol] 2.50 10*6/uL Low 4.6-6.2 [facility] Comment on above: Performed By: #### L 100.0100 ####[facility] [address] [place], [address] RDW SD 58.8 fl High 35.1-43.9 [facility] Comment on above: Performed By: #### L 100.0100 ####[facility] [address] [place], [address] WBC (Bld) [#/Vol] 8.4 10*3/uL Normal 4.4-11.0 [facility] Comment on above: Performed By: #### L 100.0100 ####[facility] [address] [place], [address] Bedside Glucoseon 01-16-2024 FINGERSTICK GLU 227 mg/dL High 74-106 [facility] Comment on above: Result Comment: BRISA GEMENT OF PATIENT CARE PER NURSING PROTOCOL Performed By: #### L 501.080 ####[facility] [address] [place], [address] FINGERSTICK GLU 202 mg/dL High [facility]106 [facility] Comment on above: Result Comment: BRISA GEMENT OF PATIENT CARE PER NURSING PROTOCOL Performed By: #### L 501.080 ####[facility] [address] [place], [address] FINGERSTICK GLU 177 mg/dL High -106 [facility] Comment on above: Result Comment: BRISA GEMENT OF PATIENT CARE PER NURSING PROTOCOL Performed By: #### L 501.080 ####[facility] [address] [place], [address] FINGERSTICK GLU 173 mg/dL High [address] [place] [address] Comment on above: Result Comment: BRISA GEMENT OF PATIENT CARE PER NURSING PROTOCOL Performed By: #### L 501.080 ####[facility] [address] [place], [address] CBC W/Diff, Automatedon 06- Absolute Lymph 1.16 X10 3/uL Normal 0.83-4.51 [facility] Comment on above: Performed By: #### L 100.0100 ####[facility] [address] [place], [address] Absolute Neut 5.2 X10 3/uL Normal 2.0-7.7 [facility] Comment on above: Performed By: #### L 100.0100 ####[facility] [address] [place], [address] Basophils/100 WBC (Bld) 0.4 % Normal 0-1 [facility] Comment on above: Performed By: #### L 100.0100 ####[facility] [address] [place], [address] Eosinophils/100 WBC (Bld) 6.5 % High 0-5 [facility] Comment on above: Performed By: #### L 100.0100 ####[facility] [address] [place], [address] Erythrocyte distribution width (RBC) [Ratio] 18.5 % High 11.6-14.6 [facility] Comment on above: Performed By: #### L 100.0100 ####[facility] [address] [place], [address] Hematocrit (Bld) [Volume fraction] 22.8 % Low 40-54 [facility] Comment on above: Performed By: #### L 100.0100 ####[facility] [address] [place], [address] Hemoglobin (Bld) [Mass/Vol] 7.8 g/dL Low 13.0-16.5 [facility] Comment on above: Performed By: #### L 100.0100 ####[facility] [address] [place], [address] IG% 0.900 Normal 0.0-0.9 [facility] Comment on above: Result Comment: IG% - Immature Granulocytes (promyelocytes, myelocytes andmetamyelocytes) > 1% indicates that a LEFT SHIFT is Present. Performed By: #### L 100.0100 ####[facility] [address] [place], [address] Lymphocytes/100 WBC (Bld) 14.6 % Low 19-41 [facility] Comment on above: Performed By: #### L 100.0100 ####[facility] [address] [place], [address] MCH (RBC) [Entitic mass] 30.2 pg Normal 27.0-32.0 [facility] Comment on above: Performed By: #### L 100.0100 ####[facility] [address] [place], [address] MCHC (RBC) [Mass/Vol] 34.2 g/dL Normal 32-36 [facility] Comment on above: Performed By: #### L 100.0100 ####[facility] [address] [place], [address] MCV (RBC) [Entitic vol] 88.4 fL Normal 80-94 [facility] Comment on above: Performed By: #### L 100.0100 ####[facility] [address] [place], [address] Monocytes/100 WBC (Bld) 12.7 % High 0-10 [facility] Comment on above: Performed By: #### L 100.0100 ####[facility] [address] [place], [address] Neutrophils/100 WBC (Bld) 64.9 % Normal 47-70 [facility] Comment on above: Performed By: #### L 100.0100 ####[facility] [address] [place], [address] Nucleated RBC (Bld) [#/Vol] 0 10*3/uL Normal 0-5 [facility] Comment on above: Performed By: #### L 100.0100 ####[facility] [address] [place], [address] Platelet mean volume (Bld) [Entitic vol] 10.8 fL Normal 6.2-12.0 [facility] Comment on above: Performed By: #### L 100.0100 ####[facility] [address] [place], [address] Platelets (Bld) [#/Vol] 111 10*3/uL Low 150-450 [facility] Comment on above: Performed By: #### L 100.0100 ####[facility] [address] [place], [address] RBC (Bld) [#/Vol] 2.58 10*6/uL Low 4.6-6.2 [facility] Comment on above: Performed By: #### L 100.0100 ####[facility] [address] [place], [address] RDW SD 57.9 fl High 35.1-43.9 [facility] Comment on above: Performed By: #### L 100.0100 ####[facility] [address] [place], [address] WBC (Bld) [#/Vol] 7.9 10*3/uL Normal 4.4-11.0 [facility] Comment on above: Performed By: #### L 100.0100 ####[facility] [address] [place], [address] Comprehensive Metabolic Prof [facility] 01-16-2025 Albumin [Mass/Vol] 2.2 g/dL Low 3.5-5.0 [facility] Comment on above: Performed By: #### L 500.4050 ####[facility] [address] [place], [address] Albumin/Globulin [Mass ratio] 0.9 {ratio} Normal 0.9-2.4 [facility] Comment on above: Performed By: #### L 500.4050 ####[facility] [address] [place], [address] ALK PHOS 247 U/L High 40-129 [facility] Comment on above: Performed By: #### L 500.4050 ####[facility] [address] [place], [address] ALT [Catalytic activity/Vol] 49 U/L High <=46 [facility] Comment on above: Performed By: #### L 500.4050 ####[facility] [address] [place], [address] AST [Catalytic activity/Vol] 51 U/L High <=37 [facility] Comment on above: Performed By: #### L 500.4050 ####[facility] [address] [place], [address] Bilirubin [Mass/Vol] 1.89 mg/dL High 0.00-1.30 [facility] Comment on above: Performed By: #### L 500.4050 ####[facility] [address] [place], [address] BUN/CRE 7.1 RATIO Low 10-20 [facility] Comment on above: Performed By: #### L 500.4050 ####[facility] [address] [place], [address] Calcium [Mass/Vol] 7.8 mg/dL Normal 7.6-11.0 [facility] Comment on above: Performed By: #### L 500.4050 ####[facility] [address] [place], [address] Chloride [Moles/Vol] 93 mmol/L Low 98-108 [facility] Comment on above: Performed By: #### L 500.4050 ####[facility] [address] [place], [address] CO2 [Moles/Vol] 31.1 mmol/L Normal 21.0-32.0 [facility] Comment on above: Performed By: #### L 500.4050 ####[facility] [address] [place], [address] Creatinine [Mass/Vol] 0.80 mg/dL Normal 0.70-1.20 [facility] Comment on above: Performed By: #### L 500.4050 ####[facility] [address] [place], [address] ECRCL 118.59 ml/min Normal 50-250 [facility] Comment on above: Performed By: #### L 500.4050 ####[facility] [address] [place], [address] GAP 7 Normal 5-15 [facility] Comment on above: Performed By: #### L 500.4050 ####[facility] [address] [place], [address] GFR/1.73 sq M.predicted among non-blacks MDRD (S/P/Bld) [Vol rate/Area] 103 mL/min/{1.73_m2} Normal >60 [facility] Comment on above: Result Comment: mL/m in/1.73m2 CKD-EPI Creatinine Equation (2020) Performed By: #### L 500.4050 ####[facility] [address] [place], [address] Globulin (S) [Mass/Vol] 2.5 g/dL Normal 2.2-4.2 [facility] Comment on above: Performed By: #### L 500.4050 ####[facility] [address] [place], [address] Glucose [Mass/Vol] 174 mg/dL High 70-99 [facility] Comment on above: Performed By: #### L 500.4050 ####[facility] [address] [place], [address] Potassium [Moles/Vol] 3.3 mmol/L Normal 3.3-5.1 [facility] Comment on above: Performed By: #### L 500.4050 ####[facility] [address] [place], [place], [address] Sodium [Moles/Vol] 132 mmol/L Low 133-145 [facility] Comment on above: Performed By: #### L 500.4050 ####[facility] [address] [place], [place], [address] T PROT 4.8 g/dL Low 5.9-8.4 [facility] Comment on above: Performed By: #### L 500.4050 ####[facility] [address] [place], [address] Urea nitrogen [Mass/Vol] 6 mg/dL Normal 4-19 [facility] Comment on above: Performed By: #### L 500.4050 ####[facility] [address] [place], [address] Serum or plasma vancomycin m easurement (mass/volume)Ordered By: Cielo Tovar on 01-16-2025 Vancomycin [Mass/Vol] 7.7 ug/mL 0.0-15.0 [facility] Vancomycin, Random Levelon 0 01-16-2025 VANCO, RANDOM 7.7 ug/mL Normal 0.0-15.0 [facility] Comment on above: Result Comment: VANC OMYCIN STANDARD DRUG THERAPY: CRITICAL VALUE IS > 15.0 mg/LVANCOMYCIN HIGH INTENSITY THERAPY: CRITICAL VALUE IS > 20.0 mg/LPLEASE CONTACT PHARMACY SERVICES (#2453) FOR INTERPRETATIONOF RESULTS. THIS RESULT DOES NOT REPRESENT A PEAK OR TROUGHLEVEL FOR THIS DRUG. Performed By: #### L 501.8850 ####[facility] [address] [place], [place], [id number] Bedside Glucoseon 01-15-2025 FINGERSTICK GLU 237 mg/dL High 74-106 [facility] Comment on above: Result Comment: BRISA MOROCHO OF PATIENT CARE PER NURSING PROTOCOL Performed By: #### L 501.080 ####[facility] [address] [place], [address] FINGERSTICK GLU 240 mg/dL High 74-106 [facility] Comment on above: Result Comment: BRISA GEMENT OF PATIENT CARE PER NURSING PROTOCOL Performed By: #### L 501.080 ####[facility] [address] [place], [address] FINGERSTICK GLU 221 mg/dL High 74-106 [facility] Comment on above: Result Comment: BRISA GEMENT OF PATIENT CARE PER NURSING PROTOCOL Performed By: #### L 501.080 ####[facility] [address] [place], [address] FINGERSTICK GLU 167 mg/dL High -106 [facility] Comment on above: Result Comment: BRISA GEMENT OF PATIENT CARE PER NURSING PROTOCOL Performed By: #### L 501.080 ####[facility] [address] [place], [address] FINGERSTICK GLU 173 mg/dL High [facility]106 [facility] Comment on above: Result Comment: BRISA GEMENT OF PATIENT CARE PER NURSING PROTOCOL Performed By: #### L 501.080 ####[facility] [address] [place], [address] CBC W/Diff, Automatedon 06-1 Absolute Lymph 1.06 X10 3/uL Normal 0.83-4.51 [facility] Comment on above: Performed By: #### L 100.0100, L500.4050 ####[facility] [address] [place], [address] Absolute Neut 5.3 X10 3/uL Normal 2.0-7.7 [facility] Comment on above: Performed By: #### L 100.0100, L500.4050 ####[facility] [address] [place], [address] Basophils/100 WBC (Bld) 0.5 % Normal 0-1 [facility] Comment on above: Performed By: #### L 100.0100, L500.4050 ####[facility] [address] [place], [address] Eosinophils/100 WBC (Bld) 6.1 % High 0-5 [facility] Comment on above: Performed By: #### L 100.0100, L500.4050 ####[facility] [address] [place], [address] Erythrocyte distribution width (RBC) [Ratio] 18.6 % High 11.6-14.6 [facility] Comment on above: Performed By: #### L 100.0100, L500.4050 ####[facility] [address] [place], [address] Hematocrit (Bld) [Volume fraction] 23.2 % Low 40-54 [facility] Comment on above: Performed By: #### L 100.0100, L500.4050 ####[facility] [address] [place], [address] Hemoglobin (Bld) [Mass/Vol] 7.9 g/dL Low 13.0-16.5 [facility] Comment on above: Performed By: #### L 100.0100, L500.4050 ####[facility] [address] [place], [address] IG% 1.000 High 0.0-0.9 [facility] Comment on above: Result Comment: IG% - Immature Granulocytes (promyelocytes, myelocytes andmetamyelocytes) > 1% indicates that a LEFT SHIFT is Present. Performed By: #### L 100.0100, L500.4050 ####[facility] [address] [place], [address] Lymphocytes/100 WBC (Bld) 13.2 % Low 19-41 [facility] Comment on above: Performed By: #### L 100.0100, L500.4050 ####[facility] [address] [place], [address] MCH (RBC) [Entitic mass] 29.8 pg Normal 27.0-32.0 [facility] Comment on above: Performed By: #### L 100.0100, L500.4050 ####[facility] [address] [place], [address] MCHC (RBC) [Mass/Vol] 34.1 g/dL Normal 32-36 [facility] Comment on above: Performed By: #### L 100.0100, L500.4050 ####[facility] [address] [place], [address] MCV (RBC) [Entitic vol] 87.5 fL Normal 80-94 [facility] Comment on above: Performed By: #### L 100.0100, L500.4050 ####[facility] [address] [place], [address] Monocytes/100 WBC (Bld) 13.6 % High 0-10 [facility] Comment on above: Performed By: #### L 100.0100, L500.4050 ####[facility] [address] [place], [address] Neutrophils/100 WBC (Bld) 65.6 % Normal 47-70 [facility] Comment on above: Performed By: #### L 100.0100, L500.4050 ####[facility] [address] [place], [address] Nucleated RBC (Bld) [#/Vol] 0 10*3/uL Normal 0-5 [facility] Comment on above: Performed By: #### L 100.0100, L500.4050 ####[facility] [address] [place], [address] Platelet mean volume (Bld) [Entitic vol] 11.0 fL Normal 6.2-12.0 [facility] Comment on above: Performed By: #### L 100.0100, L500.4050 ####[facility] [address] [place], [address] Platelets (Bld) [#/Vol] 118 10*3/uL Low 150-450 [facility] Comment on above: Performed By: #### L 100.0100, L500.4050 ####[facility] [address] [place], [address] RBC (Bld) [#/Vol] 2.65 10*6/uL Low 4.6-6.2 [facility] Comment on above: Performed By: #### L 100.0100, L500.4050 ####[facility] [address] [place], [address] RDW SD 58.1 fl High 35.1-43.9 [facility] Comment on above: Performed By: #### L 100.0100, L500.4050 ####[facility] [address] [place], [address] WBC (Bld) [#/Vol] 8.0 10*3/uL Normal 4.4-11.0 [facility] Comment on above: Performed By: #### L 100.0100, L500.4050 ####[facility] [address] [place], [address] Comprehensive Metabolic Prof ilon 01-15-2025 Albumin/Globulin [Mass ratio] 0.8 {ratio} Low 0.9-2.4 [facility] Comment on above: Performed By: #### L 100.0100, L500.4050 ####[facility] [address] [place], [address] ALK PHOS 275 U/L High 40-129 [facility] Comment on above: Performed By: #### L 100.0100, L500.4050 ####[facility] [address] [place], [address] ALT [Catalytic activity/Vol] 56 U/L High <=46 [facility] Comment on above: Performed By: #### L 100.0100, L500.4050 ####[facility] [address] [place], [address] AST [Catalytic activity/Vol] 64 U/L High <=37 [facility] Comment on above: Performed By: #### L 100.0100, L500.4050 ####[facility] [address] [place], [address] Bilirubin [Mass/Vol] 2.06 mg/dL High 0.00-1.30 [facility] Comment on above: Performed By: #### L 100.0100, L500.4050 ####[facility] [address] [place], [address] Calcium [Mass/Vol] 7.8 mg/dL Normal 7.6-11.0 [facility] Comment on above: Performed By: #### L 100.0100, L500.4050 ####[facility] [address] [place], [address] Chloride [Moles/Vol] 94 mmol/L Low 98-108 [facility] Comment on above: Performed By: #### L 100.0100, L500.4050 ####[facility] [address] [place], [address] CO2 [Moles/Vol] 26.7 mmol/L Normal 21.0-32.0 [facility] Comment on above: Performed By: #### L 100.0100, L500.4050 ####[facility] [address] [place], [address] GAP 9 Normal 5-15 [facility] Comment on above: Performed By: #### L 100.0100, L500.4050 ####[facility] [address] [place], [address] Potassium [Moles/Vol] 3.2 mmol/L Low 3.3-5.1 [facility] Comment on above: Performed By: #### L 100.0100, L500.4050 ####[facility] [address] [place], [address] Sodium [Moles/Vol] 130 mmol/L Low 133-145 [facility] Comment on above: Performed By: #### L 100.0100, L500.4050 ####[facility] [address] [place], [address] Albumin [Mass/Vol] 2.2 g/dL Low 3.5-5.0 [facility] Comment on above: Performed By: #### L 100.0100, L500.4050 ####[facility] [address] [place], [address] BUN/CRE 6.0 RATIO Low 10-20 [facility] Comment on above: Performed By: #### L 100.0100, L500.4050 ####[facility] [address] [place], [address] Creatinine [Mass/Vol] 0.82 mg/dL Normal 0.70-1.20 [facility] Comment on above: Performed By: #### L 100.0100, L500.4050 ####[facility] [address] [place], [address] ECRCL 115.58 ml/min Normal 50-250 [facility] Comment on above: Performed By: #### L 100.0100, L500.4050 ####[facility] [address] [place], [address] GFR/1.73 sq M.predicted among non-blacks MDRD (S/P/Bld) [Vol rate/Area] 102 mL/min/{1.73_m2} Normal >60 [facility] Comment on above: Result Comment: mL/m in/1.73m2 CKD-EPI Creatinine Equation (2020) Performed By: #### L 100.0100, L500.4050 ####[facility] [address] [place], [address] Globulin (S) [Mass/Vol] 2.7 g/dL Normal 2.2-4.2 [facility] Comment on above: Performed By: #### L 100.0100, L500.4050 ####[facility] [address] [place], [address] Glucose [Mass/Vol] 178 mg/dL High 70-99 [facility] Comment on above: Performed By: #### L 100.0100, L500.4050 ####[facility] [address] [place], [address] T PROT 4.9 g/dL Low 5.9-8.4 [facility] Comment on above: Performed By: #### L 100.0100, L500.4050 ####[facility] [address] [place], [address] Urea nitrogen [Mass/Vol] 5 mg/dL Normal 4-19 [facility] Comment on above: Performed By: #### L 100.0100, L500.4050 ####[facility] [address] [place], [address] Vancomycin, Random Levelon 0 - VANCO, RANDOM 20.7 ug/mL High 0.0-15.0 [facility] Comment on above: Result Comment: VANC OMYCIN STANDARD DRUG THERAPY: CRITICAL VALUE IS > 15.0 mg/LVANCOMYCIN HIGH INTENSITY THERAPY: CRITICAL VALUE IS > 20.0 mg/LPLEASE CONTACT PHARMACY SERVICES (#7192) FOR INTERPRETATIONOF RESULTS. THIS RESULT DOES NOT REPRESENT A PEAK OR TROUGHLEVEL FOR THIS DRUG. Performed By: #### L 501.8850 ####[facility] [address] [place], [address] Bedside Glucoseon 01-14-2025 FINGERSTICK GLU 194 mg/dL High 74-106 [facility] Comment on above: Result Comment: BRISA GEMENT OF PATIENT CARE PER NURSING PROTOCOL Performed By: #### L 501.080 ####[facility] [address] [place], [address] FINGERSTICK GLU 261 mg/dL High [facility]106 [facility] Comment on above: Result Comment: BRISA GEMENT OF PATIENT CARE PER NURSING PROTOCOL Performed By: #### L 501.080 ####[facility] [address] [place], [address] FINGERSTICK GLU 263 mg/dL High [address] [place] [address] Comment on above: Result Comment: BRISA GEMENT OF PATIENT CARE PER NURSING PROTOCOL Performed By: #### L 501.080 ####[facility] [address] [place], [address] CBC W/Diff, Automatedon 01-02 Absolute Lymph 1.09 X10 3/uL Normal 0.83-4.51 [facility] Comment on above: Performed By: #### L 100.0100, L500.4050 ####[facility] [address] [place], [address] Absolute Neut 5.3 X10 3/uL Normal 2.0-7.7 [facility] Comment on above: Performed By: #### L 100.0100, L500.4050 ####[facility] [address] [place], [address] Basophils/100 WBC (Bld) 0.4 % Normal 0-1 [facility] Comment on above: Performed By: #### L 100.0100, L500.4050 ####[facility] [address] [place], [address] Eosinophils/100 WBC (Bld) 5.5 % High 0-5 [facility] Comment on above: Performed By: #### L 100.0100, L500.4050 ####[facility] [address] [place], [address] Erythrocyte distribution width (RBC) [Ratio] 18.5 % High 11.6-14.6 [facility] Comment on above: Performed By: #### L 100.0100, L500.4050 ####[facility] [address] [place], [address] Hematocrit (Bld) [Volume fraction] 23.2 % Low 40-54 [facility] Comment on above: Performed By: #### L 100.0100, L500.4050 ####[facility] [address] [place], [address] Hemoglobin (Bld) [Mass/Vol] 7.8 g/dL Low 13.0-16.5 [facility] Comment on above: Performed By: #### L 100.0100, L500.4050 ####[facility] [address] [place], [address] IG% 1.000 High 0.0-0.9 [facility] Comment on above: Result Comment: IG% - Immature Granulocytes (promyelocytes, myelocytes andmetamyelocytes) > 1% indicates that a LEFT SHIFT is Present. Performed By: #### L 100.0100, L500.4050 ####[facility] [address] [place], [address] Lymphocytes/100 WBC (Bld) 13.5 % Low 19-41 [facility] Comment on above: Performed By: #### L 100.0100, L500.4050 ####[facility] [address] [place], [address] MCH (RBC) [Entitic mass] 29.5 pg Normal 27.0-32.0 [facility] Comment on above: Performed By: #### L 100.0100, L500.4050 ####[facility] [address] [place], [address] MCHC (RBC) [Mass/Vol] 33.6 g/dL Normal 32-36 [facility] Comment on above: Performed By: #### L 100.0100, L500.4050 ####[facility] [address] [place], [address] MCV (RBC) [Entitic vol] 87.9 fL Normal 80-94 [facility] Comment on above: Performed By: #### L 100.0100, L500.4050 ####[facility] [address] [place], [address] Monocytes/100 WBC (Bld) 14.3 % High 0-10 [facility] Comment on above: Performed By: #### L 100.0100, L500.4050 ####[facility] [address] [place], [address] Neutrophils/100 WBC (Bld) 65.3 % Normal 47-70 [facility] Comment on above: Performed By: #### L 100.0100, L500.4050 ####[facility] [address] [place], [address] Nucleated RBC (Bld) [#/Vol] 0 10*3/uL Normal 0-5 [facility] Comment on above: Performed By: #### L 100.0100, L500.4050 ####[facility] [address] [place], [address] Platelet mean volume (Bld) [Entitic vol] 11.8 fL Normal 6.2-12.0 [facility] Comment on above: Performed By: #### L 100.0100, L500.4050 ####[facility] [address] [place], [address] Platelets (Bld) [#/Vol] 121 10*3/uL Low 150-450 [facility] Comment on above: Performed By: #### L 100.0100, L500.4050 ####[facility] [address] [place], [address] RBC (Bld) [#/Vol] 2.64 10*6/uL Low 4.6-6.2 [facility] Comment on above: Performed By: #### L 100.0100, L500.4050 ####[facility] [address] [place], [address] RDW SD 58.4 fl High 35.1-43.9 [facility] Comment on above: Performed By: #### L 100.0100, L500.4050 ####[facility] [address] [place], [address] WBC (Bld) [#/Vol] 8.1 10*3/uL Normal 4.4-11.0 [facility] Comment on above: Performed By: #### L 100.0100, L500.4050 ####[facility] [address] [place], [address] Chest without Contraston Chest without Contrast Normal [facility] Comprehensive Metabolic Prof ilon 01-14-2025 Albumin [Mass/Vol] 2.4 g/dL Low 3.5-5.0 [facility] Comment on above: Performed By: #### L 100.0100, L500.4050 ####[facility] [address] [place], [address] Albumin/Globulin [Mass ratio] 0.9 {ratio} Normal 0.9-2.4 [facility] Comment on above: Performed By: #### L 100.0100, L500.4050 ####[facility] [address] [place], [address] ALK PHOS 293 U/L High 40-129 [facility] Comment on above: Performed By: #### L 100.0100, L500.4050 ####[facility] [address] [place], [address] ALT [Catalytic activity/Vol] 61 U/L High <=46 [facility] Comment on above: Performed By: #### L 100.0100, L500.4050 ####[facility] [address] [place], [address] AST [Catalytic activity/Vol] 83 U/L High <=37 [facility] Comment on above: Performed By: #### L 100.0100, L500.4050 ####[facility] [address] [place], [address] Bilirubin [Mass/Vol] 2.64 mg/dL High 0.00-1.30 [facility] Comment on above: Performed By: #### L 100.0100, L500.4050 ####[facility] [address] [place], [address] BUN/CRE 6.4 RATIO Low 10-20 [facility] Comment on above: Performed By: #### L 100.0100, L500.4050 ####[facility] [address] [place], [address] Calcium [Mass/Vol] 7.9 mg/dL Normal 7.6-11.0 [facility] Comment on above: Performed By: #### L 100.0100, L500.4050 ####[facility] [id number] [place], [address] Chloride [Moles/Vol] 95 mmol/L Low 98-108 [facility] Comment on above: Performed By: #### L 100.0100, L500.4050 ####[facility] [id number] [place], [address] CO2 [Moles/Vol] 25.1 mmol/L Normal 21.0-32.0 [facility] [facility] Comment on above: Performed By: #### L 100.0100, L500.4050 ####[facility] [address] [place], [address] Creatinine [Mass/Vol] 0.86 mg/dL Normal 0.70-1.20 [facility] Comment on above: Performed By: #### L 100.0100, L500.4050 ####[facility] [address] [place], [address] ECRCL 110.10 ml/min Normal 50-250 [facility] Comment on above: Performed By: #### L 100.0100, L500.4050 ####[facility] [address] [place], [address] GAP 11 Normal 5-15 [facility] Comment on above: Performed By: #### L 100.0100, L500.4050 ####[facility] [address] [place], [address] GFR/1.73 sq M.predicted among non-blacks MDRD (S/P/Bld) [Vol rate/Area] 100 mL/min/{1.73_m2} Normal >60 [facility] Comment on above: Result Comment: mL/m in/1.73m2 CKD-EPI Creatinine Equation (2020) Performed By: #### L 100.0100, L500.4050 ####[facility] [address] [place], [address] Globulin (S) [Mass/Vol] 2.5 g/dL Normal 2.2-4.2 [facility] Comment on above: Performed By: #### L 100.0100, L500.4050 ####[facility] [address] [place], [address] Glucose [Mass/Vol] 280 mg/dL High 70-99 [facility] Comment on above: Performed By: #### L 100.0100, L500.4050 ####[facility] [address] [place], [address] Potassium [Moles/Vol] 3.0 mmol/L Low 3.3-5.1 [facility] Comment on above: Performed By: #### L 100.0100, L500.4050 ####[facility] [address] [place], [address] Sodium [Moles/Vol] 131 mmol/L Low 133-145 [facility] Comment on above: Performed By: #### L 100.0100, L500.4050 ####[facility] [address] [place], [address] T PROT 4.9 g/dL Low 5.9-8.4 [facility] Comment on above: Performed By: #### L 100.0100, L500.4050 ####[facility] [address] [place], [address] Urea nitrogen [Mass/Vol] 6 mg/dL Normal 4-19 [facility] Comment on above: Performed By: #### L 100.0100, L500.4050 ####[facility] [address] [place], [address] Culture, Blood (WB)on 2024 CUB Blood cultures x2, f rom two different sites No growth in [address] [facility] Comment on above: Performed By: #### M 200.1000 ####[facility] [address] [place], [place], [id number] Magnetic resonance imaging r eportOrdered By: Kenneth Barton on 01-14-[address] [facility] Work Phone: PSA,Total- Diagnosticon 01-02 PSA, DIAGNOSTIC 0.65 ng/mL Normal 0.00-4.00 [facility] Comment on above: Result Comment: This test was performed using the [employer] tPSAmethod. Measured values of a patient??sample can varydepending on the testing procedure used. PSA valuesdetermined on patient samples by different testingprocedures cannot be used interchangeably. If there is achange in PSA assays while monitoring therapy, sequentialtesting should be performed to confirm baseline values. Performed By: #### L 501.9940 ####[facility] [address] [place], [place], [id number] Trough vancomycin levelOrder ed By: Cielo Tovar on 01-14-2025 Vancomycin trough [Mass/Vol] 21.4 ug/mL High 5.0-15.0 [facility] Vancomycin, Trough Levelon 0 01-14-2025 VANCO, TROUGH 21.4 ug/mL High 5.0-15.0 [facility] Comment on above: Order Comment: 0150 Result Comment: Eleazar mmended goal trough ranges [...] therapy recommended for serious lifethreatening infections include:- Qctqwauwyk-Cxzhfamxffgh-Tijlzrmxs (Ventilator/Healtcare Associated)-SepsisPLEASE CONTACT PHARMACY SERVICES (#7869) FOR INTERPRETATIONOF RESULTS. Performed By: #### L 501.8820 ####[facility] [address] [place], [address] BRCon 01-13-[address] [facility] Comment on above: Result Comment: [id number] ON RC TRANSFUSED 01/13/25 1613 Performed By: #### B RC, BTS ####[facility] [address] [place], [address] Bedside Glucoseon 01-13-2025 FINGERSTICK GLU 272 mg/dL High 74-106 [facility] Comment on above: Result Comment: BRISA GEMENT OF PATIENT CARE PER NURSING PROTOCOL Performed By: #### L 501.080 ####[facility] [address] [place], [address] FINGERSTICK GLU 268 mg/dL High 74-106 [facility] Comment on above: Result Comment: BRISA GEMENT OF PATIENT CARE PER NURSING PROTOCOL Performed By: #### L 501.080 ####[facility] [address] [place], [address] FINGERSTICK GLU 249 mg/dL High -106 [facility] Comment on above: Result Comment: BRISA GEMENT OF PATIENT CARE PER NURSING PROTOCOL Performed By: #### L 501.080 ####[facility] [address] [place], [address] FINGERSTICK GLU 201 mg/dL High -106 [facility] Comment on above: Result Comment: BRISA GEMENT OF PATIENT CARE PER NURSING PROTOCOL Performed By: #### L 501.080 ####[facility] [address] [place], [address] CBC W/Diff, Automatedon 01-02 Absolute Lymph 1.25 X10 3/uL Normal 0.83-4.51 [facility] Comment on above: Performed By: #### L 100.0100, L500.4050 ####[facility] [address] [place], [address] Absolute Neut 5.7 X10 3/uL Normal 2.0-7.7 [facility] Comment on above: Performed By: #### L 100.0100, L500.4050 ####[facility] [address] [place], [address] Basophils/100 WBC (Bld) 0.3 % Normal 0-1 [facility] Comment on above: Performed By: #### L 100.0100, L500.4050 ####[facility] [address] [place], [address] Eosinophils/100 WBC (Bld) 5.2 % High 0-5 [facility] Comment on above: Performed By: #### L 100.0100, L500.4050 ####[facility] [address] [place], [address] Erythrocyte distribution width (RBC) [Ratio] 18.6 % High 11.6-14.6 [facility] Comment on above: Performed By: #### L 100.0100, L500.4050 ####[facility] [address] [place], [address] Hematocrit (Bld) [Volume fraction] 21.0 % Low 40-54 [facility] Comment on above: Performed By: #### L 100.0100, L500.4050 ####[facility] [address] [place], [address] Hemoglobin (Bld) [Mass/Vol] 7.2 g/dL Low 13.0-16.5 [facility] Comment on above: Performed By: #### L 100.0100, L500.4050 ####[facility] [address] [place], [address] IG% 0.800 Normal 0.0-0.9 [facility] Comment on above: Result Comment: IG% - Immature Granulocytes (promyelocytes, myelocytes andmetamyelocytes) > 1% indicates that a LEFT SHIFT is Present. Performed By: #### L 100.0100, L500.4050 ####[facility] [address] [place], [address] Lymphocytes/100 WBC (Bld) 14.4 % Low 19-41 [facility] Comment on above: Performed By: #### L 100.0100, L500.4050 ####[facility] [address] [place], [address] MCH (RBC) [Entitic mass] 30.3 pg Normal 27.0-32.0 [facility] Comment on above: Performed By: #### L 100.0100, L500.4050 ####[facility] [address] [place], [address] MCHC (RBC) [Mass/Vol] 34.3 g/dL Normal 32-36 [facility] Comment on above: Performed By: #### L 100.0100, L500.4050 ####[facility] [address] [place], [address] MCV (RBC) [Entitic vol] 88.2 fL Normal 80-94 [facility] Comment on above: Performed By: #### L 100.0100, L500.4050 ####[facility] [address] [place], [address] Monocytes/100 WBC (Bld) 13.7 % High 0-10 [facility] Comment on above: Performed By: #### L 100.0100, L500.4050 ####[facility] [address] [place], [address] Neutrophils/100 WBC (Bld) 65.6 % Normal 47-70 [facility] Comment on above: Performed By: #### L 100.0100, L500.4050 ####[facility] [address] [place], [address] Nucleated RBC (Bld) [#/Vol] 0 10*3/uL Normal 0-5 [facility] Comment on above: Performed By: #### L 100.0100, L500.4050 ####[facility] [address] [place], [address] Platelet mean volume (Bld) [Entitic vol] 11.3 fL Normal 6.2-12.0 [facility] Comment on above: Performed By: #### L 100.0100, L500.4050 ####[facility] [address] [place], [address] Platelets (Bld) [#/Vol] 124 10*3/uL Low 150-450 [facility] Comment on above: Performed By: #### L 100.0100, L500.4050 ####[facility] [address] [place], [address] RBC (Bld) [#/Vol] 2.38 10*6/uL Low 4.6-6.2 [facility] Comment on above: Performed By: #### L 100.0100, L500.4050 ####[facility] [address] [place], [address] RDW SD 59.2 fl High 35.1-43.9 [facility] Comment on above: Performed By: #### L 100.0100, L500.4050 ####[facility] [address] [place], [address] WBC (Bld) [#/Vol] 8.7 10*3/uL Normal 4.4-11.0 [facility] Comment on above: Performed By: #### L 100.0100, L500.4050 ####[facility] [address] [place], [address] Comprehensive Metabolic Prof [facility] 01-13-2025 Albumin [Mass/Vol] 2.3 g/dL Low 3.5-5.0 [facility] Comment on above: Performed By: #### L 100.0100, L500.4050 ####[facility] [address] [place], [address] Albumin/Globulin [Mass ratio] 0.9 {ratio} Normal 0.9-2.4 [facility] Comment on above: Performed By: #### L 100.0100, L500.4050 ####[facility] [address] [place], [address] ALK PHOS 306 U/L High 40-129 [facility] Comment on above: Performed By: #### L 100.0100, L500.4050 ####[facility] [address] [place], [address] ALT [Catalytic activity/Vol] 72 U/L High <=46 [facility] Comment on above: Performed By: #### L 100.0100, L500.4050 ####[facility] [address] [place], [address] AST [Catalytic activity/Vol] 107 U/L High <=37 [facility] Comment on above: Performed By: #### L 100.0100, L500.4050 ####[facility] [address] [place], [address] Bilirubin [Mass/Vol] 1.69 mg/dL High 0.00-1.30 [facility] Comment on above: Performed By: #### L 100.0100, L500.4050 ####[facility] [address] [place], [address] BUN/CRE 7.3 RATIO Low 10-20 [facility] Comment on above: Performed By: #### L 100.0100, L500.4050 ####[facility] [address] [place], [address] Calcium [Mass/Vol] 7.7 mg/dL Normal 7.6-11.0 [facility] Comment on above: Performed By: #### L 100.0100, L500.4050 ####[facility] [address] [place], [address] Chloride [Moles/Vol] 96 mmol/L Low 98-108 [facility] Comment on above: Performed By: #### L 100.0100, L500.4050 ####[facility] [address] [place], [address] CO2 [Moles/Vol] 25.5 mmol/L Normal 21.0-32.0 [facility] Comment on above: Performed By: #### L 100.0100, L500.4050 ####[facility] [address] [place], [address] Creatinine [Mass/Vol] 0.90 mg/dL Normal 0.70-1.20 [facility] Comment on above: Performed By: #### L 100.0100, L500.4050 ####[facility] [address] [place], [address] ECRCL 103.13 ml/min Normal 50-250 [facility] Comment on above: Performed By: #### L 100.0100, L500.4050 ####[facility] [address] [place], [address] GAP 10 Normal 5-15 [facility] Comment on above: Performed By: #### L 100.0100, L500.4050 ####[facility] [address] [place], [address] GFR/1.73 sq M.predicted among non-blacks MDRD (S/P/Bld) [Vol rate/Area] 99 mL/min/{1.73_m2} Normal >60 [facility] Comment on above: Result Comment: mL/m in/1.73m2 CKD-EPI Creatinine Equation (2020) Performed By: #### L 100.0100, L500.4050 ####[facility] [address] [place], [address] Globulin (S) [Mass/Vol] 2.6 g/dL Normal 2.2-4.2 [facility] Comment on above: Performed By: #### L 100.0100, L500.4050 ####[facility] [address] [place], [address] Glucose [Mass/Vol] 187 mg/dL High 70-99 [facility] Comment on above: Performed By: #### L 100.0100, L500.4050 ####[facility] [address] [place], [address] Potassium [Moles/Vol] 3.1 mmol/L Low 3.3-5.1 [facility] Comment on above: Performed By: #### L 100.0100, L500.4050 ####[facility] [address] [place], [address] Sodium [Moles/Vol] 132 mmol/L Low 133-145 [facility] Comment on above: Performed By: #### L 100.0100, L500.4050 ####[facility] [address] [place], [address] T PROT 4.9 g/dL Low 5.9-8.4 [facility] Comment on above: Performed By: #### L 100.0100, L500.4050 ####[facility] [address] [place], [address] Urea nitrogen [Mass/Vol] 7 mg/dL Normal 4-19 [facility] Comment on above: Performed By: #### L 100.0100, L500.4050 ####[facility] [address] [place], [address] Ferritinon 01-13-2025 Ferritin [Mass/Vol] 76 ng/mL Normal 37-417 [facility] Comment on above: Performed By: #### L 503.6550, L503.6030 ####[facility] [address] [place], [address] Iron measurement (mass/mass) Ordered By: Cielo Tovar on 01-13-2025 Iron (Unsp spec) [Mass/Mass] 110 ug/dL 65-175 [facility] Iron+Iron Binding Capacityon 01-13-2025 TIBC 211 ug/dL Low 250-450 [facility] Comment on above: Performed By: #### L 503.6550, L503.6030 ####[facility] [address] [place], [place], [address] Magnetic resonance imaging r eportOrdered By: Jerry Osorio on 01-13-[address] [facility] No Panel InformationOrdered By: Cielo Tovar on 01-13-2025 101 ug/dL Low 228-428 [facility] Serum or plasma ferritin wei surement (mass/volume)Ordered By: Cielo Tovar on 01-13-2025 Ferritin [Mass/Vol] 76 ng/mL 37-417 [facility] Serum or plasma iron saturat ion measurement (mass fraction)Ordered By: Cielo Tovar on 01-13-2025 Iron saturation [Mass fraction] 52.1 % 9-55 [facility] Spine Lumbar (Routine)on Spine Lumbar (Routine) Normal [facility] Spine Thoracic (Routine)on 0 01-13-2025 Spine Thoracic (Routine) Normal [facility] Type AND Screenon 01-13-2025 ABO and Rh group Nom (Bld) Blood group O Rh(D) positive Normal [facility] Comment on above: Order Comment: CMV N EG? NNumber of units to transfuse: 1Reason for Ordering Blood: AcuteAre the blood/blood products to be transfused? YIs the patient having/had surgery? NNWhen ReadyNYA Performed By: #### B ZONIA BTS ####[facility] [address] [place], [place], [address] Vancomycin, Trough Levelon 0 01-13-2025 VANCO, TROUGH 19.8 ug/mL High 5.0-15.0 [facility] Comment on above: Order Comment: Comme nts: Trough to be drawn 30 mins prior to scheduled [id number] Result Comment: Eleazar mmended goal trough ranges [...] therapy recommended for serious lifethreatening infections include:- Uymputlner-Sxyrzkfntkue-Hifkodzoi (Ventilator/Healtcare Associated)-SepsisPLEASE CONTACT PHARMACY SERVICES (#5239) FOR INTERPRETATIONOF RESULTS. Performed By: #### L 501.8820 ####[facility] [address] [place], [address] Bedside Glucoseon 01-12-2025 FINGERSTICK GLU 241 mg/dL High 74-106 [facility] Comment on above: Result Comment: BRISA GEMENT OF PATIENT CARE PER NURSING PROTOCOL Performed By: #### L 501.080 ####[facility] [address] [facility] [address] FINGERSTICK GLU 316 mg/dL High 74-106 [facility] Comment on above: Result Comment: BRISA GEMENT OF PATIENT CARE PER NURSING PROTOCOL Performed By: #### L 501.080 ####[facility] [address] [place], [address] FINGERSTICK GLU 224 mg/dL High 74-106 [facility] Comment on above: Result Comment: BRISA GEMENT OF PATIENT CARE PER NURSING PROTOCOL Performed By: #### L 501.080 ####[facility] [address] [place], [address] FINGERSTICK GLU 214 mg/dL High 74-106 [facility] Comment on above: Result Comment: BRISA MOROCHO OF PATIENT CARE PER NURSING PROTOCOL Performed By: #### L 501.080 ####[facility] [address] [place], [address] CBC W/Diff, Automatedon -08 04-2024 Absolute Lymph 0.99 X10 3/uL Normal 0.83-4.51 [facility] Comment on above: Performed By: #### L 100.0100, L500.4050 ####[facility] [address] [place], [address] Absolute Neut 5.9 X10 3/uL Normal 2.0-7.7 [facility] Comment on above: Performed By: #### L 100.0100, L500.4050 ####[facility] [address] [place], [address] Basophils/100 WBC (Bld) 0.5 % Normal 0-1 [facility] Comment on above: Performed By: #### L 100.0100, L500.4050 ####[facility] [address] [place], [address] Eosinophils/100 WBC (Bld) 6.5 % High 0-5 [facility] Comment on above: Performed By: #### L 100.0100, L500.4050 ####[facility] [address] [place], [address] Erythrocyte distribution width (RBC) [Ratio] 18.4 % High 11.6-14.6 [facility] Comment on above: Performed By: #### L 100.0100, L500.4050 ####[facility] [address] [place], [address] Hematocrit (Bld) [Volume fraction] 21.8 % Low 40-54 [facility] Comment on above: Performed By: #### L 100.0100, L500.4050 ####[facility] [address] [place], [address] Hemoglobin (Bld) [Mass/Vol] 7.4 g/dL Low 13.0-16.5 [facility] Comment on above: Performed By: #### L 100.0100, L500.4050 ####[facility] [address] [place], [address] IG% 1.100 High 0.0-0.9 [facility] Comment on above: Result Comment: IG% - Immature Granulocytes (promyelocytes, myelocytes andmetamyelocytes) > 1% indicates that a LEFT SHIFT is Present. Performed By: #### L 100.0100, L500.4050 ####[facility] [address] [place], [address] Lymphocytes/100 WBC (Bld) 11.6 % Low 19-41 [facility] Comment on above: Performed By: #### L 100.0100, L500.4050 ####[facility] [address] [place], [address] MCH (RBC) [Entitic mass] 29.5 pg Normal 27.0-32.0 [facility] Comment on above: Performed By: #### L 100.0100, L500.4050 ####[facility] [address] [place], [address] MCHC (RBC) [Mass/Vol] 33.9 g/dL Normal 32-36 [facility] Comment on above: Performed By: #### L 100.0100, L500.4050 ####[facility] [address] [place], [address] MCV (RBC) [Entitic vol] 86.9 fL Normal 80-94 [facility] Comment on above: Performed By: #### L 100.0100, L500.4050 ####[facility] [address] [place], [address] Monocytes/100 WBC (Bld) 12.1 % High 0-10 [facility] Comment on above: Performed By: #### L 100.0100, L500.4050 ####[facility] [address] [place], [address] Neutrophils/100 WBC (Bld) 68.2 % Normal 47-70 [facility] Comment on above: Performed By: #### L 100.0100, L500.4050 ####[facility] [address] [place], [address] Nucleated RBC (Bld) [#/Vol] 0 10*3/uL Normal 0-5 [facility] Comment on above: Performed By: #### L 100.0100, L500.4050 ####[facility] [address] [place], [address] Platelet mean volume (Bld) [Entitic vol] 11.7 fL Normal 6.2-12.0 [facility] Comment on above: Performed By: #### L 100.0100, L500.4050 ####[facility] [address] [place], [address] Platelets (Bld) [#/Vol] 127 10*3/uL Low 150-450 [facility] Comment on above: Performed By: #### L 100.0100, L500.4050 ####[facility] [address] [place], [address] RBC (Bld) [#/Vol] 2.51 10*6/uL Low 4.6-6.2 [facility] Comment on above: Performed By: #### L 100.0100, L500.4050 ####[facility] [address] [place], [address] RDW SD 57.6 fl High 35.1-43.9 [facility] [facility] Comment on above: Performed By: #### L 100.0100, L500.4050 ####[facility] [address] [place], [address] WBC (Bld) [#/Vol] 8.6 10*3/uL Normal 4.4-11.0 [facility] Comment on above: Performed By: #### L 100.0100, L500.4050 ####[facility] [address] [place], [address] Comprehensive Metabolic Prof [facility] 01-12-2025 Albumin [Mass/Vol] 2.4 g/dL Low 3.5-5.0 [facility] Comment on above: Performed By: #### L 100.0100, L500.4050 ####[facility] [address] [place], [address] Albumin/Globulin [Mass ratio] 0.9 {ratio} Normal 0.9-2.4 [facility] Comment on above: Performed By: #### L 100.0100, L500.4050 ####[facility] [address] [place], [address] ALK PHOS 332 U/L High 40-129 [facility] Comment on above: Performed By: #### L 100.0100, L500.4050 ####[facility] [address] [place], [address] ALT [Catalytic activity/Vol] 82 U/L High <=46 [facility] Comment on above: Performed By: #### L 100.0100, L500.4050 ####[facility] [address] [place], [address] AST [Catalytic activity/Vol] 148 U/L High <=37 [facility] Comment on above: Performed By: #### L 100.0100, L500.4050 ####[facility] [address] [place], [address] Bilirubin [Mass/Vol] 1.95 mg/dL High 0.00-1.30 [facility] Comment on above: Performed By: #### L 100.0100, L500.4050 ####[facility] [address] [place], [address] BUN/CRE 10.5 RATIO Normal 10-20 [facility] Comment on above: Performed By: #### L 100.0100, L500.4050 ####[facility] [address] [place], [address] Calcium [Mass/Vol] 7.6 mg/dL Normal 7.6-11.0 [facility] Comment on above: Performed By: #### L 100.0100, L500.4050 ####[facility] [address] [place], [address] Chloride [Moles/Vol] 97 mmol/L Low 98-108 [facility] Comment on above: Performed By: #### L 100.0100, L500.4050 ####[facility] [address] [place], [address] CO2 [Moles/Vol] 24.4 mmol/L Normal 21.0-32.0 [facility] Comment on above: Performed By: #### L 100.0100, L500.4050 ####[facility] [address] [place], [address] Creatinine [Mass/Vol] 0.93 mg/dL Normal 0.70-1.20 [facility] Comment on above: Performed By: #### L 100.0100, L500.4050 ####[facility] [address] [place], [address] ECRCL 99.17 ml/min Normal 50-250 [facility] Comment on above: Performed By: #### L 100.0100, L500.4050 ####[facility] [address] [place], [address] GAP 9 Normal 5-15 [facility] Comment on above: Performed By: #### L 100.0100, L500.4050 ####[facility] [address] [place], [address] GFR/1.73 sq M.predicted among non-blacks MDRD (S/P/Bld) [Vol rate/Area] 95 mL/min/{1.73_m2} Normal >60 [facility] Comment on above: Result Comment: mL/m in/1.73m2 CKD-EPI Creatinine Equation (2020) Performed By: #### L 100.0100, L500.4050 ####[facility] [address] [place], [address] Globulin (S) [Mass/Vol] 2.7 g/dL Normal 2.2-4.2 [facility] Comment on above: Performed By: #### L 100.0100, L500.4050 ####[facility] [address] [place], [address] Glucose [Mass/Vol] 241 mg/dL High 70-99 [facility] Comment on above: Performed By: #### L 100.0100, L500.4050 ####[facility] [address] [place], [address] Potassium [Moles/Vol] 3.1 mmol/L Low 3.3-5.1 [facility] Comment on above: Performed By: #### L 100.0100, L500.4050 ####[facility] [address] [place], [address] Sodium [Moles/Vol] 130 mmol/L Low 133-145 [facility] Comment on above: Performed By: #### L 100.0100, L500.4050 ####[facility] [address] [place], [address] T PROT 5.0 g/dL Low 5.9-8.4 [facility] Comment on above: Performed By: #### L 100.0100, L500.4050 ####[facility] [address] [place], [address] Urea nitrogen [Mass/Vol] 10 mg/dL Normal 4-19 [facility] Comment on above: Performed By: #### L 100.0100, L500.4050 ####[facility] [address] [place], [address] Urine Cultureon 01-12-2025 [facility] Urine Culture Urine Culture Yeast, not Mary albicans [place] Count 25,000-50,[address] [facility] Comment on above: Performed By: #### M 100.2200 ####[facility] [address] [place], [address] Bedside Glucoseon 01-11-2025 FINGERSTICK GLU 258 mg/dL High 74-106 [facility] Comment on above: Result Comment: BRISA GEMENT OF PATIENT CARE PER NURSING PROTOCOL Performed By: #### L 501.080 ####[facility] [address] [place], [address] FINGERSTICK GLU 298 mg/dL High 74-106 [facility] Comment on above: Result Comment: BRISA GEMENT OF PATIENT CARE PER NURSING PROTOCOL Performed By: #### L 501.080 ####[facility] [address] [place], [address] FINGERSTICK GLU 268 mg/dL High 74-106 [facility] Comment on above: Result Comment: BRISA GEMENT OF PATIENT CARE PER NURSING PROTOCOL Performed By: #### L 501.080 ####[facility] [address] [place], [address] FINGERSTICK GLU 251 mg/dL High 74-106 [facility] Comment on above: Result Comment: BRISA MOROCHO OF PATIENT CARE PER NURSING PROTOCOL Performed By: #### L 501.080 ####[facility] [address] [place], [address] CBC W/Diff, Automatedon 06-1 0-2025 Absolute Lymph 1.01 X10 3/uL Normal 0.83-4.51 [facility] Comment on above: Performed By: #### L 100.0100 ####[facility] [address] [place], [address] Absolute Neut 5.6 X10 3/uL Normal 2.0-7.7 [facility] Comment on above: Performed By: #### L 100.0100 ####[facility] [address] [place], [address] Basophils/100 WBC (Bld) 0.5 % Normal 0-1 [facility] Comment on above: Performed By: #### L 100.0100 ####[facility] [address] [place], [address] Eosinophils/100 WBC (Bld) 4.6 % Normal 0-5 [facility] Comment on above: Performed By: #### L 100.0100 ####[facility] [address] [place], [address] Erythrocyte distribution width (RBC) [Ratio] 18.6 % High 11.6-14.6 [facility] Comment on above: Performed By: #### L 100.0100 ####[facility] [address] [place], [address] Hematocrit (Bld) [Volume fraction] 21.8 % Low 40-54 [facility] Comment on above: Performed By: #### L 100.0100 ####[facility] [address] [place], [address] Hemoglobin (Bld) [Mass/Vol] 7.4 g/dL Low 13.0-16.5 [facility] Comment on above: Performed By: #### L 100.0100 ####[facility] [address] [place], [address] IG% 0.900 Normal 0.0-0.9 [facility] Comment on above: Result Comment: IG% - Immature Granulocytes (promyelocytes, myelocytes andmetamyelocytes) > 1% indicates that a LEFT SHIFT is Present. Performed By: #### L 100.0100 ####[facility] [address] [place], [address] Lymphocytes/100 WBC (Bld) 12.6 % Low 19-41 [facility] Comment on above: Performed By: #### L 100.0100 ####[facility] [address] [place], [address] MCH (RBC) [Entitic mass] 29.7 pg Normal 27.0-32.0 [facility] Comment on above: Performed By: #### L 100.0100 ####[facility] [address] [place], [address] MCHC (RBC) [Mass/Vol] 33.9 g/dL Normal 32-36 [facility] Comment on above: Performed By: #### L 100.0100 ####[facility] [address] [place], [address] MCV (RBC) [Entitic vol] 87.6 fL Normal 80-94 [facility] Comment on above: Performed By: #### L 100.0100 ####[facility] [address] [place], [address] Monocytes/100 WBC (Bld) 11.8 % High 0-10 [facility] Comment on above: Performed By: #### L 100.0100 ####[facility] [address] [place], [address] Neutrophils/100 WBC (Bld) 69.6 % Normal 47-70 [facility] Comment on above: Performed By: #### L 100.0100 ####[facility] [address] [place], [address] Nucleated RBC (Bld) [#/Vol] 0 10*3/uL Normal 0-5 [facility] Comment on above: Performed By: #### L 100.0100 ####[facility] [address] [place], [address] Platelet mean volume (Bld) [Entitic vol] 12.1 fL High 6.2-12.0 [facility] Comment on above: Performed By: #### L 100.0100 ####[facility] [address] [place], [address] Platelets (Bld) [#/Vol] 130 10*3/uL Low 150-450 [facility] Comment on above: Performed By: #### L 100.0100 ####[facility] [address] [place], [address] RBC (Bld) [#/Vol] 2.49 10*6/uL Low 4.6-6.2 [facility] Comment on above: Performed By: #### L 100.0100 ####[facility] [address] [place], [address] RDW SD 56.7 fl High 35.1-43.9 [facility] Comment on above: Performed By: #### L 100.0100 ####[facility] [address] [place], [address] WBC (Bld) [#/Vol] 8.0 10*3/uL Normal 4.4-11.0 [facility] Comment on above: Performed By: #### L 100.0100 ####[facility] [address] [place], [address] Absolute Neut Normal 2.0-7.7 [facility] Comment on above: Result Comment: This specimen has been REJECTED due to Laboratory criteria:Clotted.DSCOTT has been notified of need of recollection.01/11/25555 [place] Performed By: #### L 500.4050, L100.0100 ####[facility] [address] [place], [address] HCT Normal 40-54 [facility] Comment on above: Result Comment: This specimen has been REJECTED due to Laboratory criteria:Clotted.DSCOTT has been notified of need of recollection.01/11/25555 Vitaliy Lillie Performed By: #### L 500.4050, L100.0100 ####[facility] [address] [place], [address] HGB Normal 13.0-16.5 [facility] Comment on above: Result Comment: This specimen has been REJECTED due to Laboratory criteria:Clotted.DSCOTT has been notified of need of recollection.01/11/25555 [place] Performed By: #### L 500.4050, L100.0100 ####[facility] [address] [place], [address] MCH Normal 27.0-32.0 [facility] Comment on above: Result Comment: This specimen has been REJECTED due to Laboratory criteria:Clotted.DSCOTT has been notified of need of recollection.01/11/25555 [place] Performed By: #### L 500.4050, L100.0100 ####[facility] [address] [place], [address] MCHC Normal 32-36 [facility] Comment on above: Result Comment: This specimen has been REJECTED due to Laboratory criteria:Clotted.DSCOTT has been notified of need of recollection.01/11/25555 [place] Performed By: #### L 500.4050, L100.0100 ####[facility] [address] [place], [address] MCV Normal 80-94 [facility] Comment on above: Result Comment: This specimen has been REJECTED due to Laboratory criteria:Clotted.DSCOTT has been notified of need of recollection.01/11/25555 [place] Performed By: #### L 500.4050, L100.0100 ####[facility] [address] [facility] [address] NEUT% Normal 47-70 [facility] Comment on above: Result Comment: This specimen has been REJECTED due to Laboratory criteria:Clotted.DSCOTT has been notified of need of recollection.01/11/25555 Vitaliy Lillie Performed By: #### L 500.4050, L100.0100 ####[facility] [address] [place], [address] PLT Normal 150-450 [facility] Comment on above: Result Comment: This specimen has been REJECTED due to Laboratory criteria:Clotted.DSCOTT has been notified of need of recollection.01/11/25555 Vitaliy Lillie Performed By: #### L 500.4050, L100.0100 ####[facility] [address] [place], [address] RBC Normal 4.6-6.2 [facility] Comment on above: Result Comment: This specimen has been REJECTED due to Laboratory criteria:Clotted.DSCOTT has been notified of need of recollection.01/11/25555 Vitaliy Lillie Performed By: #### L 500.4050, L100.0100 ####[facility] [address] [place], [address] RDW CV Normal 11.6-14.6 [facility] Comment on above: Result Comment: This specimen has been REJECTED due to Laboratory criteria:Clotted.DSCOTT has been notified of need of recollection.01/11/25 0556 [place] [place] Performed By: #### L 500.4050, L100.0100 ####[facility] [address] [place], [address] RDW SD Normal 35.1-43.9 [facility] Comment on above: Result Comment: This specimen has been REJECTED due to Laboratory criteria:Clotted.DSCOTT has been notified of need of recollection.01/11/25555 [place] Performed By: #### L 500.4050, L100.0100 ####[facility] [address] [place], [address] WBC Normal 4.4-11.0 [facility] Comment on above: Result Comment: This specimen has been REJECTED due to Laboratory criteria:Clotted.DSCOTT has been notified of need of recollection.01/11/2556 [place] Performed By: #### L 500.4050, L100.0100 ####[facility] [address] [place], [address] Comprehensive Metabolic Prof njon 01-11-2025 Albumin [Mass/Vol] 2.2 g/dL Low 3.5-5.0 [facility] Comment on above: Performed By: #### L 500.4050, L100.0100 ####[facility] [address] [place], [address] Albumin/Globulin [Mass ratio] 0.8 {ratio} Low 0.9-2.4 [facility] Comment on above: Performed By: #### L 500.4050, L100.0100 ####[facility] [address] [place], [address] ALK PHOS 314 U/L High 40-129 [facility] Comment on above: Performed By: #### L 500.4050, L100.0100 ####[facility] [address] [place], [address] ALT [Catalytic activity/Vol] 66 U/L High <=46 [facility] Comment on above: Performed By: #### L 500.4050, L100.0100 ####[facility] [address] [place], [address] AST [Catalytic activity/Vol] 137 U/L High <=37 [facility] Comment on above: Result Comment: Hemo lysis present, Results??could be affected.?? Performed By: #### L 500.4050, L100.0100 ####[facility] [address] [place], [address] Bilirubin [Mass/Vol] 2.05 mg/dL High 0.00-1.30 [facility] Comment on above: Performed By: #### L 500.4050, L100.0100 ####[facility] [address] [place], [address] BUN/CRE 13.4 RATIO Normal 10-20 [facility] Comment on above: Performed By: #### L 500.4050, L100.0100 ####[facility] [address] [place], [address] Calcium [Mass/Vol] 7.6 mg/dL Normal 7.6-11.0 [facility] Comment on above: Performed By: #### L 500.4050, L100.0100 ####[facility] [address] [place], [address] Chloride [Moles/Vol] 99 mmol/L Normal 98-108 [facility] Comment on above: Performed By: #### L 500.4050, L100.0100 ####[facility] [address] [place], [address] CO2 [Moles/Vol] 17.3 mmol/L Low 21.0-32.0 [facility] Comment on above: Performed By: #### L 500.4050, L100.0100 ####[facility] [address] [place], [address] Creatinine [Mass/Vol] 1.18 mg/dL Normal 0.70-1.20 [facility] Comment on above: Performed By: #### L 500.4050, L100.0100 ####[facility] [address] [place], [address] ECRCL 78.27 ml/min Normal 50-250 [facility] Comment on above: Performed By: #### L 500.4050, L100.0100 ####[facility] [address] [place], [address] GAP 12 Normal 5-15 [facility] Comment on above: Performed By: #### L 500.4050, L100.0100 ####[facility] [address] [place], [address] GFR/1.73 sq M.predicted among non-blacks MDRD (S/P/Bld) [Vol rate/Area] 72 mL/min/{1.73_m2} Normal >60 [facility] Comment on above: Result Comment: mL/m in/1.73m2 CKD-EPI Creatinine Equation (2020) Performed By: #### L 500.4050, L100.0100 ####[facility] [address] [place], [address] Globulin (S) [Mass/Vol] 2.8 g/dL Normal 2.2-4.2 [facility] Comment on above: Performed By: #### L 500.4050, L100.0100 ####[facility] [address] [place], [address] Glucose [Mass/Vol] 275 mg/dL High 70-99 [facility] Comment on above: Performed By: #### L 500.4050, L100.0100 ####[facility] [address] [place], [address] Potassium [Moles/Vol] 3.5 mmol/L Normal 3.3-5.1 [facility] Comment on above: Result Comment: Hemo lysis present, Results??could be affected.?? Performed By: #### L 500.4050, L100.0100 ####[facility] [address] [place], [address] Sodium [Moles/Vol] 129 mmol/L Low 133-145 [facility] Comment on above: Performed By: #### L 500.4050, L100.0100 ####[facility] [address] [place], [address] T PROT 5.0 g/dL Low 5.9-8.4 [facility] Comment on above: Performed By: #### L 500.4050, L100.0100 ####[facility] [address] [place], [address] Urea nitrogen [Mass/Vol] 16 mg/dL Normal 4-19 [facility] Comment on above: Performed By: #### L 500.4050, L100.0100 ####[facility] [address] [place], [address] Consultation - Surgicalon Consultation - Surgical Normal [facility] Vancomycin, Random Levelon 0 01-11-2025 VANCO, RANDOM 14.8 ug/mL Normal 0.0-15.0 [facility] Comment on above: Result Comment: VANC OMYCIN STANDARD DRUG THERAPY: CRITICAL VALUE IS > 15.0 mg/LVANCOMYCIN HIGH INTENSITY THERAPY: CRITICAL VALUE IS > 20.0 mg/LPLEASE CONTACT PHARMACY SERVICES (#9150) FOR INTERPRETATIONOF RESULTS. THIS RESULT DOES NOT REPRESENT A PEAK OR TROUGHLEVEL FOR THIS DRUG. Performed By: #### L 501.8850 ####[facility] [address] [place], [address] Vancomycin, Trough Levelon 0 01-11-2025 VANCO, TROUGH 21.8 ug/mL High 5.0-15.0 [facility] Comment on above: Order Comment: Comme nts: DRAW 30 MIN PRIOR TO [id number] Result Comment: Eleazar mmended goal trough ranges [...] therapy recommended for serious lifethreatening infections include:- Jhfiwzozsr-Nwvqupcukieu-Sofmhtail (Ventilator/Healtcare Associated)-SepsisPLEASE CONTACT PHARMACY SERVICES (#1282) FOR INTERPRETATIONOF RESULTS. Performed By: #### L 501.8820 ####[facility] [address] [place] [address] Bedside Glucoseon 01-10-2025 FINGERSTICK GLU 193 mg/dL High 74-106 [facility] Comment on above: Result Comment: BRISA GEMENT OF PATIENT CARE PER NURSING PROTOCOL Performed By: #### L 501.080 ####[facility] [address] [place] [address] FINGERSTICK GLU 190 mg/dL High 74-106 [facility] Comment on above: Result Comment: BRISA GEMENT OF PATIENT CARE PER NURSING PROTOCOL Performed By: #### L 501.080 ####[facility] [address] [facility] [address] FINGERSTICK GLU 195 mg/dL High 74-106 [facility] Comment on above: Result Comment: BRISA GEMENT OF PATIENT CARE PER NURSING PROTOCOL Performed By: #### L 501.080 ####[facility] [address] [place], [address] CBC W/Diff, Automatedon 06-0 9-2024 Absolute Lymph 0.85 X10 3/uL Normal 0.83-4.51 [facility] Comment on above: Order Comment: REDRA W. PREVIOUS SPECIMEN REJECTED DUE TOCONTAMINATION. 01/10/25410 Eliazar R Mancia. Performed By: #### L 100.0100 ####[facility] [address] [place], [address] Absolute Neut 7.3 X10 3/uL Normal 2.0-7.7 [facility] Comment on above: Order Comment: REDRA W. PREVIOUS SPECIMEN REJECTED DUE TOCONTAMINATION. 01/10/25410 Eliazar R Mancia. Performed By: #### L 100.0100 ####[facility] [address] [place], [address] Basophils/100 WBC (Bld) 0.5 % Normal 0-1 [facility] Comment on above: Order Comment: REDRA W. PREVIOUS SPECIMEN REJECTED DUE TOCONTAMINATION. 01/10/25410 Eliazar R Mancia. Performed By: #### L 100.0100 ####[facility] [address] [place], [address] Eosinophils/100 WBC (Bld) 5.9 % High 0-5 [facility] Comment on above: Order Comment: REDRA W. PREVIOUS SPECIMEN REJECTED DUE TOCONTAMINATION. 01/10/25410 Eliazar R Mancia. Performed By: #### L 100.0100 ####[facility] [address] [place], [address] Erythrocyte distribution width (RBC) [Ratio] 18.7 % High 11.6-14.6 [facility] Comment on above: Order Comment: REDRA W. PREVIOUS SPECIMEN REJECTED DUE TOCONTAMINATION. 01/10/25410 Eliazar R Mancia. Performed By: #### L 100.0100 ####[facility] [address] [place], [address] Hematocrit (Bld) [Volume fraction] 23.1 % Low 40-54 [facility] Comment on above: Order Comment: REDRA W. PREVIOUS SPECIMEN REJECTED DUE TOCONTAMINATION. 01/10/25410 Eliazar R Mancia. Performed By: #### L 100.0100 ####[facility] [address] [place], [address] Hemoglobin (Bld) [Mass/Vol] 7.4 g/dL Low 13.0-16.5 [facility] Comment on above: Order Comment: REDRA W. PREVIOUS SPECIMEN REJECTED DUE TOCONTAMINATION. 01/10/25410 Eliazar R Mancia. Performed By: #### L 100.0100 ####[facility] [address] [place], [address] IG% 0.500 Normal 0.0-0.9 [facility] Comment on above: Order Comment: REDRA W. PREVIOUS SPECIMEN REJECTED DUE TOCONTAMINATION. 01/10/25410 Eliazar R Mancia. Result Comment: IG% - Immature Granulocytes (promyelocytes, myelocytes andmetamyelocytes) > 1% indicates that a LEFT SHIFT is Present. Performed By: #### L 100.0100 ####[facility] [address] [place], [address] Lymphocytes/100 WBC (Bld) 8.8 % Low 19-41 [facility] Comment on above: Order Comment: REDRA W. PREVIOUS SPECIMEN REJECTED DUE TOCONTAMINATION. 01/10/25410 Eliazar R Mancia. Performed By: #### L 100.0100 ####[facility] [address] [place], [address] MCH (RBC) [Entitic mass] 29.2 pg Normal 27.0-32.0 [facility] Comment on above: Order Comment: REDRA W. PREVIOUS SPECIMEN REJECTED DUE TOCONTAMINATION. 01/10/25410 Eliazar R Mancia. Performed By: #### L 100.0100 ####[facility] [address] [place], [address] MCHC (RBC) [Mass/Vol] 32.0 g/dL Normal 32-36 [facility] Comment on above: Order Comment: REDRA W. PREVIOUS SPECIMEN REJECTED DUE TOCONTAMINATION. 01/10/25410 Eliazar R Mancia. Performed By: #### L 100.0100 ####[facility] [address] [place], [address] MCV (RBC) [Entitic vol] 91.3 fL Normal 80-94 [facility] Comment on above: Order Comment: REDRA W. PREVIOUS SPECIMEN REJECTED DUE TOCONTAMINATION. 01/10/25410 Eliazar R Mancia. Performed By: #### L 100.0100 ####[facility] [address] [place], [address] Monocytes/100 WBC (Bld) 8.2 % Normal 0-10 [facility] Comment on above: Order Comment: REDRA W. PREVIOUS SPECIMEN REJECTED DUE TOCONTAMINATION. 01/10/25410 Eliazar R Mancia. Performed By: #### L 100.0100 ####[facility] [address] [place], [address] Neutrophils/100 WBC (Bld) 76.1 % High 47-70 [facility] Comment on above: Order Comment: REDRA W. PREVIOUS SPECIMEN REJECTED DUE TOCONTAMINATION. 01/10/25410 Eliazar R Mancia. Performed By: #### L 100.0100 ####[facility] [address] [place], [address] Nucleated RBC (Bld) [#/Vol] 0 10*3/uL Normal 0-5 [facility] Comment on above: Order Comment: REDRA W. PREVIOUS SPECIMEN REJECTED DUE TOCONTAMINATION. 01/10/25410 Eliazar R Mancia. Performed By: #### L 100.0100 ####[facility] [address] [place], [address] Platelet mean volume (Bld) [Entitic vol] 12.3 fL High 6.2-12.0 [facility] Comment on above: Order Comment: REDRA W. PREVIOUS SPECIMEN REJECTED DUE TOCONTAMINATION. 01/10/25410 Eliazar R Mancia. Performed By: #### L 100.0100 ####[facility] [address] [place], [address] Platelets (Bld) [#/Vol] 110 10*3/uL Low 150-450 [facility] Comment on above: Order Comment: REDRA W. PREVIOUS SPECIMEN REJECTED DUE TOCONTAMINATION. 01/10/25410 Eliazar R Mancia. Performed By: #### L 100.0100 ####[facility] [address] [place], [address] RBC (Bld) [#/Vol] 2.53 10*6/uL Low 4.6-6.2 [facility] Comment on above: Order Comment: REDRA W. PREVIOUS SPECIMEN REJECTED DUE TOCONTAMINATION. 01/10/25410 Eliazar R Mancia. Performed By: #### L 100.0100 ####[facility] [address] [place], [address] RDW SD 60.1 fl High 35.1-43.9 [facility] Comment on above: Order Comment: REDRA W. PREVIOUS SPECIMEN REJECTED DUE TOCONTAMINATION. 01/10/25410 Eliazar R Mancia. Performed By: #### L 100.0100 ####[facility] [address] [place], [address] WBC (Bld) [#/Vol] 9.6 10*3/uL Normal 4.4-11.0 [facility] Comment on above: Order Comment: REDRA W. PREVIOUS SPECIMEN REJECTED DUE TOCONTAMINATION. 01/10/25410 Eliazar R Mancia. Performed By: #### L 100.0100 ####[facility] [address] [place], [address] DIFF INDICATED? SCAN CRITERIA MET Normal [facility] Comment on above: Result Comment: This specimen has been REJECTED due to Laboratory criteria:Contaminated/Leaked.[facility] has been notified of need of recollection.01/10/25408 Eliazar R Mancia Performed By: #### L 100.0100, L500.4050 ####[facility] [address] [place], [address] Hemoglobin (Bld) [Mass/Vol] 5.5 g/dL Invalid Interpretation Code 13.0-16.5 [facility] Comment on above: Result Comment: This specimen has been REJECTED due to Laboratory criteria:Contaminated/Leaked.[facility] has been notified of need of recollection.01/10/25408 Eliazar R BurnsCRITICAL VALUE CALLED TO PORTIA TAVAREZ (ICU)01/10/25 0336 Henry Calloway.RESULTS READ BACK BY SAME. Performed By: #### L 100.0100, L500.4050 ####[facility] [address] [place], [address] Absolute Lymph 4.28 X10 3/uL Normal 0.83-4.51 [facility] Comment on above: Result Comment: This specimen has been REJECTED due to Laboratory criteria:Contaminated/Leaked.[facility] has been notified of need of recollection.01/10/25408 Eliazar R Mancia Performed By: #### L 100.0100, L500.4050 ####[facility] [address] [place], [address] Absolute Neut 1.7 X10 3/uL Low 2.0-7.7 [facility] Comment on above: Result Comment: This specimen has been REJECTED due to Laboratory criteria:Contaminated/Leaked.[facility] has been notified of need of recollection.01/10/25408 Eliazar R Mancia Performed By: #### L 100.0100, L500.4050 ####[facility] [address] [place], [address] BASO# 0.01 X10 3/uL Normal [facility] Comment on above: Result Comment: This specimen has been REJECTED due to Laboratory criteria:Contaminated/Leaked.[facility] has been notified of need of recollection.01/10/25408 Eliazar R Mancia Performed By: #### L 100.0100, L500.4050 ####[facility] [address] [place], [address] Basophils/100 WBC (Bld) 0.2 % Normal 0-1 [facility] Comment on above: Result Comment: This specimen has been REJECTED due to Laboratory criteria:Contaminated/Leaked.[facility] has been notified of need of recollection.01/10/25408 Eliazar R Mancia Performed By: #### L 100.0100, L500.4050 ####[facility] [address] [place], [address] EOS# 0.15 X10 3/uL Normal [facility] Comment on above: Result Comment: This specimen has been REJECTED due to Laboratory criteria:Contaminated/Leaked.[facility] has been notified of need of recollection.01/10/25408 Eliazar R Mancia Performed By: #### L 100.0100, L500.4050 ####[facility] [address] [place], [address] Eosinophils/100 WBC (Bld) 2.4 % Normal 0-5 [facility] Comment on above: Result Comment: This specimen has been REJECTED due to Laboratory criteria:Contaminated/Leaked.[facility] has been notified of need of recollection.01/10/25408 Eliazar R Mancia Performed By: #### L 100.0100, L500.4050 ####[facility] [address] [place], [address] Erythrocyte distribution width (RBC) [Ratio] 19.2 % High 11.6-14.6 [facility] Comment on above: Result Comment: This specimen has been REJECTED due to Laboratory criteria:Contaminated/Leaked.[facility] has been notified of need of recollection.01/10/25408 Eliazar R Mancia Performed By: #### L 100.0100, L500.4050 ####[facility] [address] [place], [address] Hematocrit (Bld) [Volume fraction] 20.7 % Low 40-54 [facility] Comment on above: Result Comment: This specimen has been REJECTED due to Laboratory criteria:Contaminated/Leaked.[facility] has been notified of need of recollection.01/10/25408 Eliazar R Mancia Performed By: #### L 100.0100, L500.4050 ####[facility] [address] [place], [address] IG# 0.020 X10 3/uL High 0.0-0.0 [facility] Comment on above: Result Comment: This specimen has been REJECTED due to Laboratory criteria:Contaminated/Leaked.[facility] has been notified of need of recollection.01/10/25408 Eliazar R Mancia Performed By: #### L 100.0100, L500.4050 ####[facility] [address] [place], [address] IG% 0.300 Normal 0.0-0.9 [facility] Comment on above: Result Comment: This specimen has been REJECTED due to Laboratory criteria:Contaminated/Leaked.[facility] has been notified of need of recollection.01/10/25408 Eliazar R BurnsIG% - Immature Granulocytes (promyelocytes, myelocytes andmetamyelocytes) > 1% indicates that a LEFT SHIFT is Present. Performed By: #### L 100.0100, L500.4050 ####[facility] [address] [place], [address] LYMPH# 4.28 X10 3/ul Normal 0.83-4.51 [facility] Comment on above: Result Comment: This specimen has been REJECTED due to Laboratory criteria:Contaminated/Leaked.[facility] has been notified of need of recollection.01/10/25408 Eliazar R Mancia Performed By: #### L 100.0100, L500.4050 ####[facility] [address] [place], [address] Lymphocytes/100 WBC (Bld) 67.8 % High 19-41 [facility] Comment on above: Result Comment: This specimen has been REJECTED due to Laboratory criteria:Contaminated/Leaked.[facility] has been notified of need of recollection.01/10/25408 Eliazar R Mancia Performed By: #### L 100.0100, L500.4050 ####[facility] [address] [place], [address] MCH (RBC) [Entitic mass] 29.4 pg Normal 27.0-32.0 [facility] Comment on above: Result Comment: This specimen has been REJECTED due to Laboratory criteria:Contaminated/Leaked.[facility] has been notified of need of recollection.01/10/25408 Eliazar R Mancia Performed By: #### L 100.0100, L500.4050 ####[facility] [address] [place], [address] MCHC (RBC) [Mass/Vol] 26.6 g/dL Low 32-36 [facility] Comment on above: Result Comment: This specimen has been REJECTED due to Laboratory criteria:Contaminated/Leaked.[facility] has been notified of need of recollection.01/10/25408 Eliazar R Mancia Performed By: #### L 100.0100, L500.4050 ####[facility] [address] [place], [address] MCV (RBC) [Entitic vol] 110.7 fL High 80-94 [facility] Comment on above: Result Comment: This specimen has been REJECTED due to Laboratory criteria:Contaminated/Leaked.[facility] has been notified of need of recollection.01/10/25408 Eliazar R Mancia Performed By: #### L 100.0100, L500.4050 ####[facility] [address] [place], [address] MONO # 0.16 X10 3/uL Normal [facility] Comment on above: Result Comment: This specimen has been REJECTED due to Laboratory criteria:Contaminated/Leaked.[facility] has been notified of need of recollection.01/10/25408 Eliazar R Mancia Performed By: #### L 100.0100, L500.4050 ####[facility] [address] [place], [address] Monocytes/100 WBC (Bld) 2.5 % Normal 0-10 [facility] Comment on above: Result Comment: This specimen has been REJECTED due to Laboratory criteria:Contaminated/Leaked.[facility] has been notified of need of recollection.01/10/25408 Eliazar R Mancia Performed By: #### L 100.0100, L500.4050 ####[facility] [address] [place], [address] Neutrophil # 1.69 X10 3/uL Low 2.7-7.7 [facility] Comment on above: Result Comment: This specimen has been REJECTED due to Laboratory criteria:Contaminated/Leaked.[facility] has been notified of need of recollection.01/10/25408 Eliazar R Mancia Performed By: #### L 100.0100, L500.4050 ####[facility] [address] [place], [address] Neutrophils/100 WBC (Bld) 26.8 % Low 47-70 [facility] Comment on above: Result Comment: This specimen has been REJECTED due to Laboratory criteria:Contaminated/Leaked.[facility] has been notified of need of recollection.01/10/25408 Eliazar R Mancia Performed By: #### L 100.0100, L500.4050 ####[facility] [address] [place], [address] Nucleated RBC (Bld) [#/Vol] 0 10*3/uL Normal 0-5 [facility] Comment on above: Result Comment: This specimen has been REJECTED due to Laboratory criteria:Contaminated/Leaked.[facility] has been notified of need of recollection.01/10/25408 Eliazar R Mancia Performed By: #### L 100.0100, L500.4050 ####[facility] [address] [place], [address] Platelet mean volume (Bld) [Entitic vol] 12.2 fL High 6.2-12.0 [facility] Comment on above: Result Comment: This specimen has been REJECTED due to Laboratory criteria:Contaminated/Leaked.[facility] has been notified of need of recollection.01/10/25408 Eliazar R Mancia Performed By: #### L 100.0100, L500.4050 ####[facility] [address] [place], [address] Platelets (Bld) [#/Vol] 97 10*3/uL Low 150-450 [facility] Comment on above: Result Comment: This specimen has been REJECTED due to Laboratory criteria:Contaminated/Leaked.[facility] has been notified of need of recollection.01/10/25408 Eliazar R Mancia Performed By: #### L 100.0100, L500.4050 ####[facility] [address] [place], [address] Ab[address] [facility] Comment on above: Result Comment: This specimen has been REJECTED due to Laboratory criteria:Contaminated/Leaked.[facility] has been notified of need of recollection.01/10/25408 Eliazar R Mancia Performed By: #### L 100.0100, L500.4050 ####[facility] [address] [place], [address] [address]OR[address] YES Abnormal [facility] Comment on above: Result Comment: This specimen has been REJECTED due to Laboratory criteria:Contaminated/Leaked.[facility] has been notified of need of recollection.01/10/25408 Eliazar R Mancia Performed By: #### L 100.0100, L500.4050 ####[facility] [address] [place], [address] RBC (Bld) [#/Vol] 1.87 10*6/uL Low 4.6-6.2 [facility] Comment on above: Result Comment: This specimen has been REJECTED due to Laboratory criteria:Contaminated/Leaked.[facility] has been notified of need of recollection.01/10/25408 Eliazar R Mancia Performed By: #### L 100.0100, L500.4050 ####[facility] [address] [place], [address] RDW SD 73.4 fl High 35.1-43.9 [facility] Comment on above: Result Comment: This specimen has been REJECTED due to Laboratory criteria:Contaminated/Leaked.[facility] has been notified of need of recollection.01/10/25408 Eliazar R Mancia Performed By: #### L 100.0100, L500.4050 ####[facility] [address] [place], [address] WBC (Bld) [#/Vol] 6.3 10*3/uL Normal 4.4-11.0 [facility] Comment on above: Result Comment: This specimen has been REJECTED due to Laboratory criteria:Contaminated/Leaked.[facility] has been notified of need of recollection.01/10/25408 Eliazar R Mancia Performed By: #### L 100.0100, L500.4050 ####[facility] [address] [place], [address] Comprehensive Metabolic Prof ilon 01-10-2025 Albumin [Mass/Vol] 2.4 g/dL Low 3.5-5.0 [facility] Comment on above: Order Comment: REDRA W. PREVIOUS SPECIMEN REJECTED DUE TOCONTAMINATION. 01/10/25409 Eliazar R Mancia. Performed By: #### L 500.4050, L501.5200, L501.2300 ####[facility] [address] [place], [address] Albumin/Globulin [Mass ratio] 0.9 {ratio} Normal 0.9-2.4 [facility] Comment on above: Order Comment: REDRA W. PREVIOUS SPECIMEN REJECTED DUE TOCONTAMINATION. 01/10/25409 Eliazar R Mancia. Performed By: #### L 500.4050, L501.5200, L501.2300 ####[facility] [address] [place], [address] ALK PHOS 244 U/L High 40-129 [facility] Comment on above: Order Comment: REDRA W. PREVIOUS SPECIMEN REJECTED DUE TOCONTAMINATION. 01/10/25409 Eliazar R Mancia. Performed By: #### L 500.4050, L501.5200, L501.2300 ####[facility] [address] [place], [address] ALT [Catalytic activity/Vol] 54 U/L High <=46 [facility] Comment on above: Order Comment: REDRA W. PREVIOUS SPECIMEN REJECTED DUE TOCONTAMINATION. 01/10/25409 Eliazar R Mancia. Performed By: #### L 500.4050, L501.5200, L501.2300 ####[facility] [address] [place], [address] AST [Catalytic activity/Vol] 101 U/L High <=37 [facility] Comment on above: Order Comment: REDRA W. PREVIOUS SPECIMEN REJECTED DUE TOCONTAMINATION. 01/10/25409 Eliazar R Mancia. Performed By: #### L 500.4050, L501.5200, L501.2300 ####[facility] [address] [place], [address] Bilirubin [Mass/Vol] 1.57 mg/dL High 0.00-1.30 [facility] Comment on above: Order Comment: REDRA W. PREVIOUS SPECIMEN REJECTED DUE TOCONTAMINATION. 01/10/25409 Eliazar R Mancia. Performed By: #### L 500.4050, L501.5200, L501.2300 ####[facility] [address] [place], [address] BUN/CRE 13.7 RATIO Normal 10-20 [facility] Comment on above: Order Comment: REDRA W. PREVIOUS SPECIMEN REJECTED DUE TOCONTAMINATION. 01/10/25409 Eliazar R Mancia. Performed By: #### L 500.4050, L501.5200, L501.2300 ####[facility] [address] [place], [address] Calcium [Mass/Vol] 7.8 mg/dL Normal 7.6-11.0 [facility] Comment on above: Order Comment: REDRA W. PREVIOUS SPECIMEN REJECTED DUE TOCONTAMINATION. 01/10/25409 Eliazar R Mancia. Performed By: #### L 500.4050, L501.5200, L501.2300 ####[facility] [address] [place], [address] Chloride [Moles/Vol] 101 mmol/L Normal 98-108 [facility] Comment on above: Order Comment: REDRA W. PREVIOUS SPECIMEN REJECTED DUE TOCONTAMINATION. 01/10/25409 Eliazar R Mancia. Performed By: #### L 500.4050, L501.5200, L501.2300 ####[facility] [address] [place], [address] CO2 [Moles/Vol] 13.1 mmol/L Low 21.0-32.0 [facility] Comment on above: Order Comment: REDRA W. PREVIOUS SPECIMEN REJECTED DUE TOCONTAMINATION. 01/10/25409 Eliazar R Mancia. Performed By: #### L 500.4050, L501.5200, L501.2300 ####[facility] [address] [place], [address] Creatinine [Mass/Vol] 1.95 mg/dL High 0.70-1.20 [facility] Comment on above: Order Comment: REDRA W. PREVIOUS SPECIMEN REJECTED DUE TOCONTAMINATION. 01/10/25409 Eliazar Mancia. Performed By: #### L 500.4050, L501.5200, L501.2300 ####[facility] [address] [place], [address] ECRCL 45.71 ml/min Low 50-250 [facility] Comment on above: Order Comment: REDRA W. PREVIOUS SPECIMEN REJECTED DUE TOCONTAMINATION. 01/10/25409 Eliazar Mancia. Performed By: #### L 500.4050, L501.5200, L501.2300 ####[facility] [address] [place], [address] GAP 15 Normal 5-15 [facility] Comment on above: Order Comment: REDRA W. PREVIOUS SPECIMEN REJECTED DUE TOCONTAMINATION. 01/10/25409 Eliazar Mancia. Performed By: #### L 500.4050, L501.5200, L501.2300 ####[facility] [address] [place], [address] GFR/1.73 sq M.predicted among non-blacks MDRD (S/P/Bld) [Vol rate/Area] 39 mL/min/{1.73_m2} Low >60 [facility] Comment on above: Order Comment: REDRA W. PREVIOUS SPECIMEN REJECTED DUE TOCONTAMINATION. 01/10/25409 Eliazar R Blanche. Result Comment: mL/m in/1.73m2 CKD-EPI Creatinine Equation (2020) Performed By: #### L 500.4050, L501.5200, L501.2300 ####[facility] [address] [place], [address] Globulin (S) [Mass/Vol] 2.6 g/dL Normal 2.2-4.2 [facility] Comment on above: Order Comment: REDRA W. PREVIOUS SPECIMEN REJECTED DUE TOCONTAMINATION. 01/10/25409 Eliazar R Mancia. Performed By: #### L 500.4050, L501.5200, L501.2300 ####[facility] [address] [place], [address] Glucose [Mass/Vol] 247 mg/dL High 70-99 [facility] Comment on above: Order Comment: REDRA W. PREVIOUS SPECIMEN REJECTED DUE TOCONTAMINATION. 01/10/25409 Eliazar R Mancia. Performed By: #### L 500.4050, L501.5200, L501.2300 ####[facility] [address] [place], [address] Potassium [Moles/Vol] 3.4 mmol/L Normal 3.3-5.1 [facility] Comment on above: Order Comment: REDRA W. PREVIOUS SPECIMEN REJECTED DUE TOCONTAMINATION. 01/10/25409 Eliazar R Mancia. Performed By: #### L 500.4050, L501.5200, L501.2300 ####[facility] [address] [place], [address] Sodium [Moles/Vol] 129 mmol/L Low 133-145 [facility] Comment on above: Order Comment: REDRA W. PREVIOUS SPECIMEN REJECTED DUE TOCONTAMINATION. 01/10/25409 Eliazar R Mancia. Performed By: #### L 500.4050, L501.5200, L501.2300 ####[facility] [address] [place], [address] T PROT 5.0 g/dL Low 5.9-8.4 [facility] Comment on above: Order Comment: REDRA W. PREVIOUS SPECIMEN REJECTED DUE TOCONTAMINATION. 01/10/25409 Eliazar R Mancia. Performed By: #### L 500.4050, L501.5200, L501.2300 ####[facility] [address] [place], [address] Urea nitrogen [Mass/Vol] 27 mg/dL High 4-19 [facility] Comment on above: Order Comment: REDRA W. PREVIOUS SPECIMEN REJECTED DUE TOCONTAMINATION. 01/10/25409 Eliazar R Mancia. Performed By: #### L 500.4050, L501.5200, L501.2300 ####[facility] [address] [place], [address] ALB Normal 3.5-5.0 [facility] Comment on above: Result Comment: This specimen has been REJECTED due to Laboratory criteria:Contaminated/Leaked.[facility] has been notified of need of recollection.01/10/25408 Eliazar R Mancia Performed By: #### L 100.0100, L500.4050 ####[facility] [address] [place], [address] ALK PHOS Normal 40-129 [facility] Comment on above: Result Comment: This specimen has been REJECTED due to Laboratory criteria:Contaminated/Leaked.[facility] has been notified of need of recollection.01/10/25408 Eliazar R Mancia Performed By: #### L 100.0100, L500.4050 ####[facility] [address] [place], [address] ALT Normal <=46 [facility] Comment on above: Result Comment: This specimen has been REJECTED due to Laboratory criteria:Contaminated/Leaked.[facility] has been notified of need of recollection.01/10/25408 Eliazar R Mancia Performed By: #### L 100.0100, L500.4050 ####[facility] [address] [place], [address] AST Normal <=37 [facility] Comment on above: Result Comment: This specimen has been REJECTED due to Laboratory criteria:Contaminated/Leaked.[facility] has been notified of need of recollection.01/10/25408 Eliazar R Mancia Performed By: #### L 100.0100, L500.4050 ####[facility] [address] [place], [address] BUN Normal 4-19 [facility] Comment on above: Result Comment: This specimen has been REJECTED due to Laboratory criteria:Contaminated/Leaked.[facility] has been notified of need of recollection.01/10/25408 Eliazar R Mancia Performed By: #### L 100.0100, L500.4050 ####[facility] [address] [place], [address] BUN/CRE Normal 10-20 [facility] Comment on above: Result Comment: This specimen has been REJECTED due to Laboratory criteria:Contaminated/Leaked.[facility] has been notified of need of recollection.01/10/25408 Eliazar R Mancia Performed By: #### L 100.0100, L500.4050 ####[facility] [address] [place], [address] Calcium Normal 7.6-11.0 [facility] Comment on above: Result Comment: This specimen has been REJECTED due to Laboratory criteria:Contaminated/Leaked.[facility] has been notified of need of recollection.01/10/25408 Eliazar R Mancia Performed By: #### L 100.0100, L500.4050 ####[facility] [address] [place], [address] CL Normal 98-108 [facility] Comment on above: Result Comment: This specimen has been REJECTED due to Laboratory criteria:Contaminated/Leaked.[facility] has been notified of need of recollection.01/10/25408 Eliazar R Mancia Performed By: #### L 100.0100, L500.4050 ####[facility] [address] [place], [address] CO2 Normal 21.0-32.0 [facility] Comment on above: Result Comment: This specimen has been REJECTED due to Laboratory criteria:Contaminated/Leaked.[facility] has been notified of need of recollection.01/10/25408 Eliazar R Mancia Performed By: #### L 100.0100, L500.4050 ####[facility] [address] [place], [address] CREAT,SERUM Normal 0.70-1.20 [facility] Comment on above: Result Comment: This specimen has been REJECTED due to Laboratory criteria:Contaminated/Leaked.[facility] has been notified of need of recollection.01/10/25408 Eliazar R Mancia Performed By: #### L 100.0100, L500.4050 ####[facility] [address] [place], [address] eGFR Normal >60 [facility] Comment on above: Result Comment: This specimen has been REJECTED due to Laboratory criteria:Contaminated/Leaked.[facility] has been notified of need of recollection.01/10/25408 Eliazar R Mancia Performed By: #### L 100.0100, L500.4050 ####[facility] [address] [place], [address] GAP Normal 5-15 [facility] Comment on above: Result Comment: This specimen has been REJECTED due to Laboratory criteria:Contaminated/Leaked.[facility] has been notified of need of recollection.01/10/25408 Eliazar R Mancia Performed By: #### L 100.0100, L500.4050 ####[facility] [address] [place], [address] GLU Normal 70-99 [facility] Comment on above: Result Comment: This specimen has been REJECTED due to Laboratory criteria:Contaminated/Leaked.[facility] has been notified of need of recollection.01/10/25408 Eliazar R Mancia Performed By: #### L 100.0100, L500.4050 ####[facility] [address] [place], [address] Potassium Normal 3.3-5.1 [facility] Comment on above: Result Comment: This specimen has been REJECTED due to Laboratory criteria:Contaminated/Leaked.[facility] has been notified of need of recollection.01/10/25408 Eliazar R Mancia Performed By: #### L 100.0100, L500.4050 ####[facility] [address] [place], [address] T BILI Normal 0.00-1.30 [facility] Comment on above: Result Comment: This specimen has been REJECTED due to Laboratory criteria:Contaminated/Leaked.[facility] has been notified of need of recollection.01/10/25408 Eliazar R Mancia Performed By: #### L 100.0100, L500.4050 ####[facility] [address] [place], [address] T PROT Normal 5.9-8.4 [facility] Comment on above: Result Comment: This specimen has been REJECTED due to Laboratory criteria:Contaminated/Leaked.[facility] has been notified of need of recollection.01/10/25408 Eliazar R Mancia Performed By: #### L 100.0100, L500.4050 ####[facility] [address] [place], [address] Comprehensive Metabolic Profil Normal 133-145 [facility] Comment on above: Result Comment: This specimen has been REJECTED due to Laboratory criteria:Contaminated/Leaked.[facility] has been notified of need of recollection.01/10/25408 Eliazar R Mancia Performed By: #### L 100.0100, L500.4050 ####[facility] [address] [place], [address] Magnesiumon 01-10-2025 Magnesium [Mass/Vol] 1.4 mg/dL Low 1.5-2.2 [facility] Comment on above: Order Comment: REDRA W. PREVIOUS SPECIMEN REJECTED DUE TOCONTAMINATION. 01/10/25409 Eliazar Gusman Mancia. Performed By: #### L 500.4050, L501.5200, L501.2300 ####[facility] [address] [place], [address] Phosphoruson 01-10-2025 Phosphate [Mass/Vol] 3.5 mg/dL Normal 2.7-4.5 [facility] Comment on above: Order Comment: REDRA W. PREVIOUS SPECIMEN REJECTED DUE TOCONTAMINATION. 01/10/25409 Eliazar Gusman Mancia. Performed By: #### L 500.4050, L501.5200, L501.2300 ####[facility] [address] [place], [address] Abdomen/Pelvis without Conto n 01-09-2025 Abdomen/Pelvis without Cont Normal [facility] Absolute lymphocyte countOrd ered By: Remus Vanessa on 01-09-2025 Lymphocytes Auto (Unsp spec) [#/Vol] 0.95 10*3/uL 0.83-4.51 [facility] Ammoniaon 01-09-2025 Ammonia (P) [Moles/Vol] 61.1 umol/L High 16-60 [facility] Comment on above: Performed By: #### L 503.5510 ####[facility] [address] [place], [address] Anion gap in Serum or Plasma Ordered By: Remus Ungbrandon on 01-09-2025 Anion gap [Moles/Vol] 13 mmol/L 5-15 [facility] Automated lymphocyte count a s percentage of total leukocytesOrdered By: Remus Vanessa on 01-09-2025 Lymphocytes/100 WBC Auto (Unsp spec) 7.2 % Low 19-41 [facility] BUN/creatinine ratioOrdered By: Remus Ungbrandon on 01-09-2025 Urea nitrogen/Creatinine [Mass ratio] 13.4 mg/mg 10- [facility] Basic Metabolic Profile (BMP )on 01-09-2025 BUN/CRE 13.8 RATIO Normal - [facility] Comment on above: Performed By: #### L 506.1001, L500.2500 ####[facility] [address] [place], [address] Calcium [Mass/Vol] 7.7 mg/dL Normal 7.6-11.0 [facility] Comment on above: Performed By: #### L 506.1001, L500.2500 ####[facility] [address] [place], [address] Chloride [Moles/Vol] 106 mmol/L Normal 98-108 [facility] Comment on above: Performed By: #### L 506.1001, L500.2500 ####[facility] [address] [place], [address] CO2 [Moles/Vol] 14.1 mmol/L Low 21.0-32.0 [facility] Comment on above: Performed By: #### L 506.1001, L500.2500 ####[facility] [address] [place], [address] Creatinine [Mass/Vol] 1.78 mg/dL High 0.70-1.20 [facility] Comment on above: Performed By: #### L 506.1001, L500.2500 ####[facility] [address] [place], [address] ECRCL 50.08 ml/min Normal 50-250 [facility] Comment on above: Performed By: #### L 506.1001, L500.2500 ####[facility] [address] [place], [address] GAP 11 Normal 5-15 [facility] Comment on above: Performed By: #### L 506.1001, L500.2500 ####[facility] [address] [place], [address] GFR/1.73 sq M.predicted among non-blacks MDRD (S/P/Bld) [Vol rate/Area] 44 mL/min/{1.73_m2} Low >60 [facility] Comment on above: Result Comment: mL/m in/1.73m2 CKD-EPI Creatinine Equation (2020) Performed By: #### L 506.1001, L500.2500 ####[facility] [address] [place], [address] Glucose [Mass/Vol] 119 mg/dL High 70-99 [facility] Comment on above: Performed By: #### L 506.1001, L500.2500 ####[facility] [address] [place], [address] Potassium [Moles/Vol] 3.7 mmol/L Normal 3.3-5.1 [facility] Comment on above: Performed By: #### L 506.1001, L500.2500 ####[facility] [address] [place], [address] Sodium [Moles/Vol] 132 mmol/L Low 133-145 [facility] Comment on above: Performed By: #### L 506.1001, L500.2500 ####[facility] [address] [place], [address] Urea nitrogen [Mass/Vol] 25 mg/dL High 4-19 [facility] Comment on above: Performed By: #### L 506.1001, L500.2500 ####[facility] [address] [place], [address] Basophil percentageOrdered B y: Remus Ungur on 01-09-2025 Basophils/100 WBC (Bld) 0.4 % 0-1 [facility] Bedside Glucoseon 01-09-2025 FINGERSTICK GLU 143 mg/dL High 74-106 [facility] Comment on above: Result Comment: BRISA MOROCHO OF PATIENT CARE PER NURSING PROTOCOL Performed By: #### L 501.080 ####[facility] [address] [place], [address] FINGERSTICK GLU 99 mg/dL Normal 74-106 [facility] Comment on above: Result Comment: BRISA MOROCHO OF PATIENT CARE PER NURSING PROTOCOL Performed By: #### L 501.080 ####[facility] [address] [place], [address] Bilirubin Test strip Ql (U)O rdered By: Remus Ungur on 01-09-2025 Bilirubin Ql (U) 1 mg/dL High Negative [facility] Bilirubin, totalOrdered By: Remus Ungur on 01-09-2025 Bilirubin [Mass/Vol] 1.15 mg/dL 0.00-1.30 [facility] Blood cultureOrdered By: Rem us Ungur on 01-09-2025 Bacteria identified Cx Nom (Bld) No growth in [address] [facility] Bacteria identified Cx Nom (Bld) No growth in [address] [facility] CBC W/Diff, Automatedon 06-0 Absolute Lymph 0.95 X10 3/uL Normal 0.83-4.51 [facility] Comment on above: Performed By: #### L 503.6005, L100.0100, L500.4050 ####[facility] [address] [place], [address] Absolute Neut 10.6 X10 3/uL High 2.0-7.7 [facility] Comment on above: Performed By: #### L 503.6005, L100.0100, L500.4050 ####[facility] [address] [place], [address] Basophils/100 WBC (Bld) 0.4 % Normal 0-1 [facility] Comment on above: Performed By: #### L 503.6005, L100.0100, L500.4050 ####[facility] [address] [place], [address] Eosinophils/100 WBC (Bld) 4.2 % Normal 0-5 [facility] Comment on above: Performed By: #### L 503.6005, L100.0100, L500.4050 ####[facility] [address] [place], [address] Erythrocyte distribution width (RBC) [Ratio] 18.1 % High 11.6-14.6 [facility] Comment on above: Performed By: #### L 503.6005, L100.0100, L500.4050 ####[facility] [address] [place], [address] Hematocrit (Bld) [Volume fraction] 24.3 % Low 40-54 [facility] Comment on above: Performed By: #### L 503.6005, L100.0100, L500.4050 ####[facility] [address] [place], [address] Hemoglobin (Bld) [Mass/Vol] 7.9 g/dL Low 13.0-16.5 [facility] Comment on above: Performed By: #### L 503.6005, L100.0100, L500.4050 ####[facility] [address] [place], [address] IG% 0.900 Normal 0.0-0.9 [facility] Comment on above: Result Comment: IG% - Immature Granulocytes (promyelocytes, myelocytes andmetamyelocytes) > 1% indicates that a LEFT SHIFT is Present. Performed By: #### L 503.6005, L100.0100, L500.4050 ####[facility] [address] [place], [address] Lymphocytes/100 WBC (Bld) 7.2 % Low 19-41 [facility] Comment on above: Performed By: #### L 503.6005, L100.0100, L500.4050 ####[facility] [address] [place], [address] MCH (RBC) [Entitic mass] 29.4 pg Normal 27.0-32.0 [facility] Comment on above: Performed By: #### L 503.6005, L100.0100, L500.4050 ####[facility] [address] [place], [address] MCHC (RBC) [Mass/Vol] 32.5 g/dL Normal 32-36 [facility] Comment on above: Performed By: #### L 503.6005, L100.0100, L500.4050 ####[facility] [address] [place], [address] MCV (RBC) [Entitic vol] 90.3 fL Normal 80-94 [facility] Comment on above: Performed By: #### L 503.6005, L100.0100, L500.4050 ####[facility] [address] [place], [address] Monocytes/100 WBC (Bld) 6.7 % Normal 0-10 [facility] Comment on above: Performed By: #### L 503.6005, L100.0100, L500.4050 ####[facility] [address] [place], [address] Neutrophils/100 WBC (Bld) 80.6 % High 47-70 [facility] Comment on above: Performed By: #### L 503.6005, L100.0100, L500.4050 ####[facility] [address] [place], [address] Nucleated RBC (Bld) [#/Vol] 0 10*3/uL Normal 0-5 [facility] Comment on above: Performed By: #### L 503.6005, L100.0100, L500.4050 ####[facility] [address] [place], [address] Platelet mean volume (Bld) [Entitic vol] 11.7 fL Normal 6.2-12.0 [facility] Comment on above: Performed By: #### L 503.6005, L100.0100, L500.4050 ####[facility] [address] [place], [address] Platelets (Bld) [#/Vol] 114 10*3/uL Low 150-450 [facility] Comment on above: Performed By: #### L 503.6005, L100.0100, L500.4050 ####[facility] [address] [place], [address] RBC (Bld) [#/Vol] 2.69 10*6/uL Low 4.6-6.2 [facility] Comment on above: Performed By: #### L 503.6005, L100.0100, L500.4050 ####[facility] [address] [place], [address] RDW SD 57.5 fl High 35.1-43.9 [facility] Comment on above: Performed By: #### L 503.6005, L100.0100, L500.4050 ####[facility] [address] [place], [address] WBC (Bld) [#/Vol] 13.2 10*3/uL High 4.4-11.0 [facility] Comment on above: Performed By: #### L 503.6005, L100.0100, L500.4050 ####[facility] [address] [place], [address] CO2 (BldV) [Moles/Vol]Ordere d By: Yaritza Leo on 01-09-2025 CO2 [Moles/Vol] 15 mmol/L Low 23-33 [facility] CPK Total, Creatine Kinaseon 01-09-2025 CPK TOTAL 34 U/L Normal 24-195 [facility] Comment on above: Performed By: #### L 501.3620 ####[facility] [address] [place], [address] Carbon dioxide, total [Moles /volume] in Central venous bloodOrdered By: Breann Mendez on 01-09-2025 CO2 [Moles/Vol] 13.6 mmol/L Low 21.0-32.0 [facility] Chloride assayOrdered By: Josselyn Mendez on 01-09-2025 Chloride [Moles/Vol] 103 mmol/L 98-108 [facility] Comprehensive Metabolic Prof ilon 01-09-2025 Albumin [Mass/Vol] 2.4 g/dL Low 3.5-5.0 [facility] Comment on above: Performed By: #### L 503.6005, L100.0100, L500.4050 ####[facility] [address] [place], [address] Albumin/Globulin [Mass ratio] 0.8 {ratio} Low 0.9-2.4 [facility] Comment on above: Performed By: #### L 503.6005, L100.0100, L500.4050 ####[facility] [address] [place], [address] ALK PHOS 196 U/L High 40-129 [facility] Comment on above: Performed By: #### L 503.6005, L100.0100, L500.4050 ####[facility] [address] [place], [address] ALT [Catalytic activity/Vol] 42 U/L Normal <=46 [facility] Comment on above: Performed By: #### L 503.6005, L100.0100, L500.4050 ####[facility] [address] [place], [address] AST [Catalytic activity/Vol] 68 U/L High <=37 [facility] Comment on above: Performed By: #### L 503.6005, L100.0100, L500.4050 ####[facility] [address] [place], [address] Bilirubin [Mass/Vol] 1.15 mg/dL Normal 0.00-1.30 [facility] Comment on above: Performed By: #### L 503.6005, L100.0100, L500.4050 ####[facility] [address] [place], [address] BUN/CRE 13.4 RATIO Normal 10-20 [facility] Comment on above: Performed By: #### L 503.6005, L100.0100, L500.4050 ####[facility] [address] [place], [address] Calcium [Mass/Vol] 8.4 mg/dL Normal 7.6-11.0 [facility] Comment on above: Performed By: #### L 503.6005, L100.0100, L500.4050 ####[facility] [address] [place], [address] Chloride [Moles/Vol] 103 mmol/L Normal 98-108 [facility] Comment on above: Performed By: #### L 503.6005, L100.0100, L500.4050 ####[facility] [address] [place], [address] CO2 [Moles/Vol] 13.6 mmol/L Low 21.0-32.0 [facility] Comment on above: Performed By: #### L 503.6005, L100.0100, L500.4050 ####[facility] [address] [place], [address] Creatinine [Mass/Vol] 1.77 mg/dL High 0.70-1.20 [facility] Comment on above: Performed By: #### L 503.6005, L100.0100, L500.4050 ####[facility] [address] [place], [address] ECRCL 50.61 ml/min Normal 50-250 [facility] Comment on above: Performed By: #### L 503.6005, L100.0100, L500.4050 ####[facility] [address] [place], [address] GAP 13 Normal 5-15 [facility] Comment on above: Performed By: #### L 503.6005, L100.0100, L500.4050 ####[facility] [address] [place], [address] GFR/1.73 sq M.predicted among non-blacks MDRD (S/P/Bld) [Vol rate/Area] 44 mL/min/{1.73_m2} Low >60 [facility] Comment on above: Result Comment: mL/m in/1.73m2 CKD-EPI Creatinine Equation (2020) Performed By: #### L 503.6005, L100.0100, L500.4050 ####[facility] [address] [place], [address] Globulin (S) [Mass/Vol] 2.9 g/dL Normal 2.2-4.2 [facility] Comment on above: Performed By: #### L 503.6005, L100.0100, L500.4050 ####[facility] [address] [place], [address] Glucose [Mass/Vol] 149 mg/dL High 70-99 [facility] Comment on above: Performed By: #### L 503.6005, L100.0100, L500.4050 ####[facility] [address] [place], [address] Potassium [Moles/Vol] 3.6 mmol/L Normal 3.3-5.1 [facility] Comment on above: Performed By: #### L 503.6005, L100.0100, L500.4050 ####[facility] [address] [place], [address] Sodium [Moles/Vol] 129 mmol/L Low 133-145 [facility] Comment on above: Performed By: #### L 503.6005, L100.0100, L500.4050 ####[facility] [address] [place], [address] T PROT 5.3 g/dL Low 5.9-8.4 [facility] Comment on above: Performed By: #### L 503.6005, L100.0100, L500.4050 ####[facility] [address] [place], [address] Urea nitrogen [Mass/Vol] 24 mg/dL High 4-19 [facility] Comment on above: Performed By: #### L 503.6005, L100.0100, L500.4050 ####[facility] [address] [place], [address] Consultation - Intensiviston 01-09-2025 Consultation - Jig And Fixture Maker Normal [facility] Emergency Department Summary on 01-09-2025 Emergency Department Summary Normal [facility] Eosinophil percentageOrdered By: Breann Mendez on 01-09-2025 Eosinophils/100 WBC (Bld) 4.2 % 0-5 [facility] Erythrocyte distribution wid th ratioOrdered By: Remus Mendez on 01-09-2025 Erythrocyte distribution width (RBC) [Ratio] 18.1 % High 11.6-14.6 [facility] Erythrocyte distribution wid th standard deviationOrdered By: Breann Mendez on 01-09-2025 Erythrocyte distribution width (RBC) [Ratio] 57.5 fl High 35.1-43.9 [facility] Glomerular filtration rate ( GFR) estimation/1.73 sq m using serum, plasma, or whole bOrdered By: Breann Mendez on 06-08-2025 GFR/1.73 sq M.predicted among non-blacks MDRD (S/P/Bld) [Vol rate/Area] 44 mL/min/{1.73_m2} Low >60 [facility] H AND P Exam - Hospitaliston 01-09-2025 H&P Exam - Hospitalist Normal [facility] Hematocrit Auto (Bld) [Volum e fraction]Ordered By: Dumont Vanessa on 01-09-2025 Hematocrit (Bld) [Volume fraction] 24.3 % Low 40-54 [facility] Hemoglobin measurementOrdere d By: [facility] on 01-09-2025 Hemoglobin (Bld) [Mass/Vol] 7.9 g/dL Low 13.0-16.5 [facility] Immature granulocytes/100 WB C Auto (Bld)Ordered By: [facility] on 01-09-2025 Immature granulocytes/100 WBC (Bld) 0.900 % 0.0-0.9 [facility] Ketones Test strip Ql (U)Ord ered By: [facility] on 01-09-2025 Ketones Ql (U) 5 mg/dl High Negative [facility] Lactic Acidon 01-09-2025 Lactate [Moles/Vol] 2.4 mmol/L Invalid Interpretation Code 0.0-2.0 [facility] Comment on above: Result Comment: Crit ical Result(s) Called at: 1829 by:??Yanet Bowden. Results read back by same. Performed By: #### L 503.6005 ####[facility] [address] [place], [address] Lactate [Moles/Vol] 3.1 mmol/L Invalid Interpretation Code 0.0-2.0 [facility] Comment on above: Order Comment: Y Result Comment: Crit ical Result(s) Called at 1108: by: AL SANZ. ??Results read back by same. Performed By: #### L 503.6005, L100.0100, L500.4050 ####[facility] [address] [place], [place], [id number] M R Staph Aureus DNA by PCRo n 01-09-2025 MRSA DNA ASSAY Negative Normal Negative [facility] Comment on above: Performed By: #### L 8200.1000 ####[facility] [address] [place], [address] MCV (mean corpuscular volume ) determinationOrdered By: Breann Mendez on 01-09-2025 MCV (RBC) [Entitic vol] 90.3 fL 80-94 [facility] Mean corpuscular hemoglobin (MCH) determinationOrdered By: Rem Ungbrandon on 01-09-2025 MCH (RBC) [Entitic mass] 29.4 pg 27.0-32.0 [facility] Monocyte percentageOrdered B y: Breann Mendez on 01-09-2025 Monocytes/100 WBC (Bld) 6.7 % 0-10 [facility] Mucus LM Ql (Urine sed)Order ed By: Breann Mendez on 01-09-2025 Mucus Ql (Urine sed) 0 SEEN /hpf [facility] Neutrophil percentageOrdered By: Breann Mendez on 01-09-2025 Neutrophils/100 WBC (Bld) 80.6 % High 47-70 [facility] Nitrite Test strip Ql (U)Ord ered By: Breann Mendez on 01-09-2025 Nitrite Ql (U) Negative Negative [facility] No Panel InformationOrdered By: Yaritza Leo on 01-09-[address] [facility] Not entered [facility] No Panel InformationOrdered By: Breann Mendez on 01-09-2025 68 U/L High <38 [facility] Platelet countOrdered By: Josselyn Menedz on 01-09-2025 Platelets (Bld) [#/Vol] 114 10*3/uL Low 150-450 [facility] Potassium measurement (mass/ volume)Ordered By: Breann Mendez on 01-09-2025 Potassium (Unsp spec) [Mass/Vol] 3.6 mmol/L 3.3-5.1 [facility] Protein Test strip Ql (U)Ord ered By: Breann Mendez on 01-09-2025 Protein Ql (U) 500 mg/dl High Negative [facility] RBC Auto (Bld) [#/Vol]Ordere d By: Breann Mendez on 01-09-2025 RBC (Bld) [#/Vol] 2.69 10*6/uL Low 4.6-6.2 [facility] Serum creatinine measurement (mass/volume)Ordered By: Breann Mendez on 01-09-2025 Creatinine [Mass/Vol] 1.77 mg/dL High 0.70-1.20 [facility] Serum globulin measurementOr dered By: Breann Mendez on 01-09-2025 Globulin (S) [Mass/Vol] 2.9 g/dL 2.2-4.2 [facility] Serum glucose measurement (m ass/volume)Ordered By: Breann Mendez on 01-09-2025 Glucose [Mass/Vol] 149 mg/dL High 70-99 [facility] Serum or plasma alanine thomas otransferase (ALT) measurementOrdered By: Breann Mendez on 01-09-2025 ALT [Catalytic activity/Vol] 42 U/L <47 [facility] Serum or plasma albumin roosevelt urement (mass/volume)Ordered By: Breann Mendez on 01-09-2025 Albumin [Mass/Vol] 2.4 g/dL Low 3.5-5.0 [facility] Serum or plasma albumin/glob ulin mass ratioOrdered By: Breann Mendez on 01-09-2025 Albumin/Globulin [Mass ratio] 0.8 {ratio} Low 0.9-2.4 [facility] Serum or plasma alkaline kendrick sphatase measurementOrdered By: Breann Mendez on 01-09-2025 ALP [Catalytic activity/Vol] 196 U/L High 40-129 [facility] Serum or plasma calcium roosevelt urement (mass/volume)Ordered By: Breann Mendez on 01-09-2025 Calcium [Mass/Vol] 8.4 mg/dL 7.6-11.0 [facility] Serum or plasma creatine kin ase activityOrdered By: Yaritza Leo on 01-09-2025 CK [Catalytic activity/Vol] 34 U/L 24-195 [facility] Serum or plasma urea nitroge n measurement (mass/volume)Ordered By: Breann Mendez on 01-09-2025 Urea nitrogen [Mass/Vol] 24 mg/dL High 4-19 [facility] Sodium levelOrdered By: Veena Mendez on 01-09-2025 Sodium [Moles/Vol] 129 mmol/L Low 133-145 [facility] Squamous epithelial cells de tection in urine sediment by light microscopyOrdered By: Breann Oreillybrandon on 01-09-2025 Epithelial cells.squamous LM Ql (Urine sed) 0-5 SEEN /hpf 0-5 [facility] Total proteinOrdered By: Ramona Mendez on 01-09-2025 Protein [Mass/Vol] 5.3 g/dL Low 5.9-8.4 [facility] Urinalysis, Completeon 01-09 EPI,SQUAMOUS 0-5 SEEN Normal 0-5 [facility] Comment on above: Order Comment: COLOR OF URINE MAY AFFECT DIPSTICK RESULTS.CLEAN CATCH Performed By: #### L 400.0001 ####[facility] [address] [place] [address] RBC > 100 SEEN Normal 0-5 [facility] Comment on above: Order Comment: COLOR OF URINE MAY AFFECT DIPSTICK RESULTS.CLEAN CATCH Performed By: #### L 400.0001 ####[facility] [address] [place] [address] WBC 50-100 SEEN Normal 0-5 [facility] Comment on above: Order Comment: COLOR OF URINE MAY AFFECT DIPSTICK RESULTS.CLEAN CATCH Performed By: #### L 400.0001 ####[facility] [address] [place] [address] BACTERIA 0 SEEN Normal None Seen [facility] Comment on above: Order Comment: COLOR OF URINE MAY AFFECT DIPSTICK RESULTS.CLEAN CATCH Performed By: #### L 400.0001 ####[facility] [address] [facility] [address] Mucus Ql (Urine sed) 0 SEEN Normal [facility] Comment on above: Order Comment: COLOR OF URINE MAY AFFECT DIPSTICK RESULTS.CLEAN CATCH Performed By: #### L 400.0001 ####[facility] [address] [place], [address] Urine clarityOrdered By: Rem us Mendez on 01-09-2025 Clarity (U) Turbid Clear [facility] Urine color determinationOrd ered By: Breann Mendez on 01-09-2025 Color (U) Red Yellow [facility] Urine cultureOrdered By: Rem us Mendez on 01-09-2025 Bacteria identified Cx Nom (U) Yeast, not Mary albicans Abnormal [facility] Urine glucose detectionOrder ed By: Breann Mendez on 01-09-2025 Glucose Ql (U) Normal mg/dl Normal [facility] Urine leukocyte esterase det ection by dipstickOrdered By: Breann Mendez on 01-09-2025 Leukocyte esterase Test strip Ql (U) 500 /ul High Negative [facility] Urine pHOrdered By: Breann Un gur on 01-09-2025 pH (U) 6.0 [pH] 5.0 - 8.0 [facility] Urine sediment bacteria coun t by microscopy (number/high power field)Ordered By: Breann Mendez on 01-09-2025 Bacteria LM.HPF (Urine sed) [#/Area] 0 /[HPF] None Seen [facility] Urine specific gravity measu rementOrdered By: Breann Mendez on 01-09-2025 Specific gravity (U) [Rel density] 1.015 1.002-1.030 [facility] Urine urobilinogen measureme ntOrdered By: Breann Mendez on 01-09-2025 Urobilinogen Ql (U) Normal mg/dl Normal [facility] Venous Blood Gason 5 Blood Gas Type TRAMAINE Normal [facility] Comment on above: Performed By: #### L 9000.0810 ####[facility] [address] [place], [place], [id number] CO2 [Moles/Vol] 15 mmol/L Low 23-33 [facility] Comment on above: Performed By: #### L 9000.0810 ####[facility] [address] [place], [address] HCO3 (Bld) [Moles/Vol] 14 mmol/L Low 22-[address] [facility] Comment on above: Performed By: #### L 9000.0810 ####[facility] [address] [place], [address] O2 Delivery Dev Not entered Normal [facility] Comment on above: Performed By: #### L 0.0810 ####[facility] [address] [place], [address] SITE Not entered Normal [facility] Comment on above: Performed By: #### L 9000.0810 ####[facility] [address] [place], [address] VBG BE -11 mmol/L Low -1.0-3.5 [facility] Comment on above: Performed By: #### L 9000.0810 ####[facility] [address] [place], [address] VBG pCO2 24.7 mmHg Low 41-51 [facility] Comment on above: Performed By: #### L 9000.0810 ####[facility] [address] [place], [address] VBG pH 7.36 Normal 7.32-7.42 [facility] Comment on above: Performed By: #### L 9000.0810 ####[facility] [address] [place], [address] VBG PO2 49 mmHg High 25-40 [facility] Comment on above: Performed By: #### L 9000.0810 ####[facility] [address] [place], [address] VBG SO2 84 High 50-70 [facility] Comment on above: Performed By: #### L 9000.0810 ####[facility] [address] [place], [address] Venous blood ammonia measure mentOrdered By: Lupillo Robbins on 01-09-2025 Ammonia (P) [Moles/Vol] 61.1 umol/L High 16-60 [facility] Venous blood base excess wei surementOrdered By: Yaritza Leo on 01-09-2025 Base excess Calc (BldV) [Moles/Vol] -11 mmol/L Low -1.0-3.5 [facility] Venous blood bicarbonate wei surementOrdered By: Yaritza Leo on 01-09-2025 HCO3 (Bld) [Moles/Vol] 14 mmol/L Low 22-[address] [facility] Venous blood pH measurementO rdered By: Yaritza Leo on 01-09-2025 pH (BldV) 7.36 [pH] 7.32-7.42 [facility] Venous blood partial pressur e of carbon dioxide measurementOrdered By: Yaritza Leo on 01-09-2025 CO2 (BldV) [Partial pressure] 24.7 mm[Hg] Low 41-51 [facility] Venous blood partial pressur e of oxygen measurementOrdered By: Yaritza Leo on 01-09-2025 Oxygen (BldV) [Partial pressure] 49 mm[Hg] High 25-40 [facility] Vitamin D,25 Hydroxyon 01-09 Vitamin D 25-OH 10.0 ng/mL Low 30-100 [facility] Comment on above: Result Comment: Sarah min D StatusDeficiency: <20 ng/mL (50nmol/L)Insufficiency: 20-30 ng/mL (50-75 nmol/L)Sufficiency: 30-100 ng/mL (75-250 nmol/L)Toxicity: >100 ng/mL (>250 nmol/L) Performed By: #### L 506.1001, L500.2500 ####[facility] [address] [place], [place], [id number] White blood cell (WBC) count Ordered By: Breann Mendez on 01-09-2025 WBC (Bld) [#/Vol] 13.2 10*3/uL High 4.4-11.0 [facility] White blood cell countOrdere d By: Breann Mendez on 01-09-2025 White blood cell count 50-100 SEEN /hpf 0-5 [facility] Basic Metabolic Profile (BMP )on 01-07-2025 BUN Normal 4-19 [facility] Comment on above: Result Comment: Canc elled via OM: Order cancelled - Patient discharged Performed By: #### L 500.2500, L100.0100 ####[facility] [address] [place], [address] BUN/CRE Normal 10-20 [facility] Comment on above: Result Comment: Canc elled via OM: Order cancelled - Patient discharged Performed By: #### L 500.2500, L100.0100 ####[facility] [address] [place], [address] Calcium Normal 7.6-11.0 [facility] Comment on above: Result Comment: Canc elled via OM: Order cancelled - Patient discharged Performed By: #### L 500.2500, L100.0100 ####[facility] [address] [place], [address] CL Normal 98-108 [facility] Comment on above: Result Comment: Canc elled via OM: Order cancelled - Patient discharged Performed By: #### L 500.2500, L100.0100 ####[facility] [address] [place], [address] CO2 Normal 21.0-32.0 [facility] Comment on above: Result Comment: Canc elled via OM: Order cancelled - Patient discharged Performed By: #### L 500.2500, L100.0100 ####[facility] [address] [place], [address] CREAT,SERUM Normal 0.70-1.20 [facility] Comment on above: Result Comment: Canc elled via OM: Order cancelled - Patient discharged Performed By: #### L 500.2500, L100.0100 ####[facility] [address] [place], [address] eGFR Normal >60 [facility] Comment on above: Result Comment: Canc elled via OM: Order cancelled - Patient discharged Performed By: #### L 500.2500, L100.0100 ####[facility] [address] [place], [address] GAP Normal 5-15 [facility] Comment on above: Result Comment: Canc elled via OM: Order cancelled - Patient discharged Performed By: #### L 500.2500, L100.0100 ####[facility] [address] [place], [address] GLU Normal 70-99 [facility] Comment on above: Result Comment: Canc elled via OM: Order cancelled - Patient discharged Performed By: #### L 500.2500, L100.0100 ####[facility] [address] [place], [address] Potassium Normal 3.3-5.1 [facility] Comment on above: Result Comment: Canc elled via OM: Order cancelled - Patient discharged Performed By: #### L 500.2500, L100.0100 ####[facility] [address] [place], [address] Basic Metabolic Profile (BMP) Normal 133-145 [facility] Comment on above: Result Comment: Canc elled via OM: Order cancelled - Patient discharged Performed By: #### L 500.2500, L100.0100 ####[facility] [address] [place], [address] CBC W/Diff, Automatedon 06-0 -2024 Absolute Neut Normal 2.0-7.7 [facility] Comment on above: Result Comment: Canc elled via OM: Order cancelled - Patient discharged Performed By: #### L 500.2500, L100.0100 ####[facility] [address] [place], [address] HCT Normal 40-54 [facility] Comment on above: Result Comment: Canc elled via OM: Order cancelled - Patient discharged Performed By: #### L 500.2500, L100.0100 ####[facility] [address] [place], [address] HGB Normal 13.0-16.5 [facility] Comment on above: Result Comment: Canc elled via OM: Order cancelled - Patient discharged Performed By: #### L 500.2500, L100.0100 ####[facility] [address] [place], [address] MCH Normal 27.0-32.0 [facility] Comment on above: Result Comment: Canc elled via OM: Order cancelled - Patient discharged Performed By: #### L 500.2500, L100.0100 ####[facility] [address] [place], [address] MCHC Normal 32-36 [facility] Comment on above: Result Comment: Canc elled via OM: Order cancelled - Patient discharged Performed By: #### L 500.2500, L100.0100 ####[facility] [address] [place], [address] MCV Normal 80-94 [facility] Comment on above: Result Comment: Canc elled via OM: Order cancelled - Patient discharged Performed By: #### L 500.2500, L100.0100 ####[facility] [address] [place], [address] NEUT% Normal 47-70 [facility] Comment on above: Result Comment: Canc elled via OM: Order cancelled - Patient discharged Performed By: #### L 500.2500, L100.0100 ####[facility] [address] [place], [address] PLT Normal 150-450 [facility] Comment on above: Result Comment: Canc elled via OM: Order cancelled - Patient discharged Performed By: #### L 500.2500, L100.0100 ####[facility] [address] [place], [address] RBC Normal 4.6-6.2 [facility] Comment on above: Result Comment: Canc elled via OM: Order cancelled - Patient discharged Performed By: #### L 500.2500, L100.0100 ####[facility] [address] [place], [address] RDW CV Normal 11.6-14.6 [facility] Comment on above: Result Comment: Canc elled via OM: Order cancelled - Patient discharged Performed By: #### L 500.2500, L100.0100 ####[facility] [address] [place], [address] RDW SD Normal 35.1-43.9 [facility] Comment on above: Result Comment: Canc elled via OM: Order cancelled - Patient discharged Performed By: #### L 500.2500, L100.0100 ####[facility] [address] [place], [address] WBC Normal 4.4-11.0 [facility] Comment on above: Result Comment: Canc elled via OM: Order cancelled - Patient discharged Performed By: #### L 500.2500, L100.0100 ####[facility] [address] [place], [address] Basic Metabolic Profile (BMP )on 01-06-2025 BUN Normal 4-19 [facility] Comment on above: Result Comment: Canc elled via OM: Order cancelled - Patient discharged Performed By: #### L 100.0100, L500.2500 ####[facility] [address] [place], [address] CREAT,SERUM Normal 0.70-1.20 [facility] Comment on above: Result Comment: Canc elled via OM: Order cancelled - Patient discharged Performed By: #### L 100.0100, L500.2500 ####[facility] [address] [place] [place], [address] GLU Normal 70-99 [facility] Comment on above: Result Comment: Canc elled via OM: Order cancelled - Patient discharged Performed By: #### L 100.0100, L500.2500 ####[facility] [address] [place] [place], [address] Absolute lymphocyte countOrd ered By: Hill Acuña on 01-05-2025 Lymphocytes Auto (Unsp spec) [#/Vol] 0.94 10*3/uL 0.83-4.51 [facility] Anion gap in Serum or Plasma Ordered By: Hill Acuña on 01-05-2025 Anion gap [Moles/Vol] 9 mmol/L 5-15 [facility] Automated lymphocyte count a s percentage of total leukocytesOrdered By: Hill Acuña on 01-05-2025 Lymphocytes/100 WBC Auto (Unsp spec) 13.4 % Low 19-41 [facility] BUN/creatinine ratioOrdered By: Hill Acuña on 01-05-2025 Urea nitrogen/Creatinine [Mass ratio] 11.9 mg/mg 10-20 [facility] Basophil percentageOrdered B y: Hill Acuña on 01-05-2025 Basophils/100 WBC (Bld) 0.4 % 0-1 [facility] Carbon dioxide, total [Moles /volume] in Central venous bloodOrdered By: Hill Acuña on 01-05-2025 CO2 [Moles/Vol] 18.5 mmol/L Low 21.0-32.0 [facility] Chloride assayOrdered By: Kvng Acuña on 01-05-2025 Chloride [Moles/Vol] 101 mmol/L 98-108 [facility] Eosinophil percentageOrdered By: Hill Acuña on 01-05-2025 Eosinophils/100 WBC (Bld) 5.1 % High 0-5 [facility] [facility] Erythrocyte distribution wid th ratioOrdered By: Hill Acuña on 01-05-2025 Erythrocyte distribution width (RBC) [Ratio] 16.4 % High 11.6-14.6 [facility] Erythrocyte distribution wid th standard deviationOrdered By: Hill Acuña on 01-05-2025 Erythrocyte distribution width (RBC) [Ratio] 51.8 fl High 35.1-43.9 [facility] Glomerular filtration rate ( GFR) estimation/1.73 sq m using serum, plasma, or whole bOrdered By: Hill Acuña on 01-05-2025 GFR/1.73 sq M.predicted among non-blacks MDRD (S/P/Bld) [Vol rate/Area] 92 mL/min/{1.73_m2} >60 [facility] deOrdered By: Hill Acuña on 01-05-2025 Glucose [Mass/Vol] 163 mg/dL High 74-106 [facility] Glucose [Mass/Vol] 191 mg/dL High 74-106 [facility] Hematocrit Auto (Bld) [Volum e fraction]Ordered By: Hill Acuña on 01-05-2025 Hematocrit (Bld) [Volume fraction] 22.3 % Low 40-54 [facility] Hemoglobin measurementOrdere d By: Hill Acuña on 01-05-2025 Hemoglobin (Bld) [Mass/Vol] 7.5 g/dL Low 13.0-16.5 [facility] Immature granulocytes/100 WB C Auto (Bld)Ordered By: Hill Acuña on 01-05-2025 Immature granulocytes/100 WBC (Bld) 0.400 % 0.0-0.9 [facility] MCV (mean corpuscular volume ) determinationOrdered By: Hill Acuña on 01-05-2025 MCV (RBC) [Entitic vol] 86.4 fL 80-94 [facility] Mean corpuscular hemoglobin (MCH) determinationOrdered By: Hill Acuña on 01-05-2025 MCH (RBC) [Entitic mass] 29.1 pg 27.0-32.0 [facility] Monocyte percentageOrdered B y: Hill Acuña on 01-05-2025 Monocytes/100 WBC (Bld) 11.6 % High 0-10 [facility] Neutrophil percentageOrdered By: Hill Acuña on 01-05-2025 Neutrophils/100 WBC (Bld) 69.1 % 47-70 [facility] Platelet countOrdered By: Kvng Acuña on 01-05-2025 Platelets (Bld) [#/Vol] 81 10*3/uL Low 150-450 [facility] Potassium measurement (mass/ volume)Ordered By: Hill Acuña on 01-05-2025 Potassium (Unsp spec) [Mass/Vol] 3.6 mmol/L 3.3-5.1 [facility] RBC Auto (Bld) [#/Vol]Ordere d By: Hill Acuña on 01-05-2025 RBC (Bld) [#/Vol] 2.58 10*6/uL Low 4.6-6.2 [facility] Serum creatinine measurement (mass/volume)Ordered By: Hill Acuña on 01-05-2025 Creatinine [Mass/Vol] 0.95 mg/dL 0.70-1.20 [facility] Serum glucose measurement (m ass/volume)Ordered By: Hill Acuña on 01-05-2025 Glucose [Mass/Vol] 356 mg/dL High 70-99 [facility] Serum or plasma calcium roosevelt urement (mass/volume)Ordered By: Hill Acuña on 01-05-2025 Calcium [Mass/Vol] 7.9 mg/dL 7.6-11.0 [facility] Serum or plasma urea nitroge n measurement (mass/volume)Ordered By: Hill Acuña on 01-05-2025 Urea nitrogen [Mass/Vol] 11 mg/dL 4-19 [facility] Sodium levelOrdered By: Paulino Acuña on 01-05-2025 Sodium [Moles/Vol] 128 mmol/L Low 133-145 [facility] White blood cell (WBC) count Ordered By: Hill Acuña on 01-05-2025 WBC (Bld) [#/Vol] 7.0 10*3/uL 4.4-11.0 [facility] Bilirubin, totalOrdered By: Hill Acuña on 01-04-2025 Bilirubin [Mass/Vol] 0.90 mg/dL 0.00-1.30 [facility] Blood manual differential co mment interpretation (narrative result)Ordered By: Hill Acuña on 01-04-2025 Manual differential comment Marco Antonio (Bld) [Interp] SCANNED [facility] Magnesium measurement (mass/ volume)Ordered By: Hill Acuña on 01-04-2025 Magnesium (Unsp spec) [Mass/Vol] 1.3 mg/dL Low 1.5-2.2 [facility] No Panel InformationOrdered By: Hill Acuña on 01-04-2025 54 U/L High <38 [facility] Serum globulin measurementOr dered By: Hill Acuña on 01-04-2025 Globulin (S) [Mass/Vol] 2.9 g/dL 2.2-4.2 [facility] Serum or plasma alanine thomas otransferase (ALT) measurementOrdered By: Hill Acuña on 01-04-2025 ALT [Catalytic activity/Vol] 26 U/L <47 [facility] Serum or plasma albumin roosevelt urement (mass/volume)Ordered By: Hill Acuña on 01-04-2025 Albumin [Mass/Vol] 2.4 g/dL Low 3.5-5.0 [facility] Serum or plasma albumin/glob ulin mass ratioOrdered By: Hill Acuña on 01-04-2025 Albumin/Globulin [Mass ratio] 0.9 {ratio} 0.9-2.4 [facility] Serum or plasma alkaline kendrick sphatase measurementOrdered By: Hill Acuña on 01-04-2025 ALP [Catalytic activity/Vol] 171 U/L High 40-129 [facility] Total proteinOrdered By: Hugo Acuña on 01-04-2025 Protein [Mass/Vol] 5.3 g/dL Low 5.9-8.4 [facility] Absolute lymphocyte countOrd ered By: Roddy Reeves on 01-02-2025 Lymphocytes Auto (Unsp spec) [#/Vol] 1.55 10*3/uL 0.83-4.51 [facility] Anion gap in Serum or Plasma Ordered By: Roddy Reeves on 01-02-2025 Anion gap [Moles/Vol] 17 mmol/L High 5-15 [facility] Automated lymphocyte count a s percentage of total leukocytesOrdered By: Roddy Reeves on 01-02-2025 Lymphocytes/100 WBC Auto (Unsp spec) 12.2 % Low 19-41 [facility] BUN/creatinine ratioOrdered By: Roddy Reeves on 01-02-2025 Urea nitrogen/Creatinine [Mass ratio] 12.9 mg/mg 10-20 [facility] Basophil percentageOrdered B y: Roddy Reeves on 01-02-2025 Basophils/100 WBC (Bld) 0.4 % 0-1 [facility] Bilirubin Test strip Ql (U)O rdered By: Roddy Reeves on 01-02-2025 Bilirubin Ql (U) Negative Negative [facility] Bilirubin, totalOrdered By: Roddy Reeves on 01-02-2025 Bilirubin [Mass/Vol] 0.90 mg/dL 0.00-1.30 [facility] Carbon dioxide, total [Moles /volume] in Central venous bloodOrdered By: Roddy Reeves on 01-02-2025 CO2 [Moles/Vol] 19.6 mmol/L Low 21.0-32.0 [facility] Chloride assayOrdered By: Catrachito Reeves on 01-02-2025 Chloride [Moles/Vol] 95 mmol/L Low 98-108 [facility] Eosinophil percentageOrdered By: Roddy Reeves on 01-02-2025 Eosinophils/100 WBC (Bld) 6.9 % High 0-5 [facility] Erythrocyte distribution wid th ratioOrdered By: Roddy Reeves on 01-02-2025 Erythrocyte distribution width (RBC) [Ratio] 16.4 % High 11.6-14.6 [facility] Erythrocyte distribution wid th standard deviationOrdered By: Roddy Reeves on 01-02-2025 Erythrocyte distribution width (RBC) [Ratio] 51.1 fl High 35.1-43.9 [facility] Glomerular filtration rate ( GFR) estimation/1.73 sq m using serum, plasma, or whole bOrdered By: Roddy Reeves on 01-02-2025 GFR/1.73 sq M.predicted among non-blacks MDRD (S/P/Bld) [Vol rate/Area] 19 mL/min/{1.73_m2} Low >60 [facility] Hematocrit Auto (Bld) [Volum e fraction]Ordered By: Roddy Reeves on 01-02-2025 Hematocrit (Bld) [Volume fraction] 28.0 % Low 40-54 [facility] Hemoglobin measurementOrdere d By: Roddy Reeves on 01-02-2025 Hemoglobin (Bld) [Mass/Vol] 9.5 g/dL Low 13.0-16.5 [facility] Immature granulocytes/100 WB C Auto (Bld)Ordered By: Roddy Reeves on 01-02-2025 Immature granulocytes/100 WBC (Bld) 0.600 % 0.0-0.9 [facility] Ketones Test strip Ql (U)Ord ered By: Roddy Reeves on 01-02-2025 Ketones Ql (U) 5 mg/dl High Negative [facility] MCV (mean corpuscular volume ) determinationOrdered By: Roddy Reeves on 01-02-2025 MCV (RBC) [Entitic vol] 87.2 fL 80-94 [facility] Magnesium measurement (mass/ volume)Ordered By: Roddy Reeves on 01-02-2025 Magnesium (Unsp spec) [Mass/Vol] 2.0 mg/dL 1.5-2.2 [facility] Mean corpuscular hemoglobin (MCH) determinationOrdered By: Roddy Reeves on 01-02-2025 MCH (RBC) [Entitic mass] 29.6 pg 27.0-32.0 [facility] Monocyte percentageOrdered B y: Roddy Reeves on 01-02-2025 Monocytes/100 WBC (Bld) 11.9 % High 0-10 [facility] Mucus LM Ql (Urine sed)Order ed By: Roddy Reeves on 01-02-2025 Mucus Ql (Urine sed) 0 SEEN /hpf [facility] Neutrophil percentageOrdered By: Roddy Reeves on 01-02-2025 Neutrophils/100 WBC (Bld) 68.0 % 47-70 [facility] Nitrite Test strip Ql (U)Ord ered By: Roddy Reeves on 01-02-2025 Nitrite Ql (U) Negative Negative [facility] No Panel InformationOrdered By: Roddy Reeves on 01-02-2025 37 U/L <38 [facility] Platelet countOrdered By: Catrachito Reeves on 01-02-2025 Platelets (Bld) [#/Vol] 171 10*3/uL 150-450 [facility] Potassium measurement (mass/ volume)Ordered By: Roddy Reeves on 01-02-2025 Potassium (Unsp spec) [Mass/Vol] 2.6 mmol/L Low 3.3-5.1 [facility] Protein Test strip Ql (U)Ord ered By: Roddy Reeves on 01-02-2025 Protein Ql (U) 100 mg/dl High Negative [facility] RBC Auto (Bld) [#/Vol]Ordere d By: Roddy Reeves on 01-02-2025 RBC (Bld) [#/Vol] 3.21 10*6/uL Low 4.6-6.2 [facility] Serum creatinine measurement (mass/volume)Ordered By: Roddy Reeves on 01-02-2025 Creatinine [Mass/Vol] 3.54 mg/dL High 0.70-1.20 [facility] Serum globulin measurementOr dered By: Roddy Reeves on 01-02-2025 Globulin (S) [Mass/Vol] 3.4 g/dL 2.2-4.2 [facility] Serum glucose measurement (m ass/volume)Ordered By: Roddy Reeves on 01-02-2025 Glucose [Mass/Vol] 164 mg/dL High 70-99 [facility] Serum or plasma alanine thomas otransferase (ALT) measurementOrdered By: Roddy Reeves on 01-02-2025 ALT [Catalytic activity/Vol] 23 U/L <47 [facility] Serum or plasma albumin roosevelt urement (mass/volume)Ordered By: Roddy Reeves on 01-02-2025 Albumin [Mass/Vol] 2.8 g/dL Low 3.5-5.0 [facility] Serum or plasma albumin/glob ulin mass ratioOrdered By: Roddy Reeves on 01-02-2025 Albumin/Globulin [Mass ratio] 0.8 {ratio} Low 0.9-2.4 [facility] Serum or plasma alkaline kendrick sphatase measurementOrdered By: Roddy Reeves on 01-02-2025 ALP [Catalytic activity/Vol] 191 U/L High 40-129 [facility] Serum or plasma calcium roosevelt urement (mass/volume)Ordered By: Roddy Reeves on 01-02-2025 Calcium [Mass/Vol] 9.0 mg/dL 7.6-11.0 [facility] Serum or plasma ethanol roosevelt urement (mass/volume)Ordered By: Roddy Reeves on 01-02-2025 Ethanol [Mass/Vol] mg/dL <10.1 [facility] Serum or plasma urea nitroge n measurement (mass/volume)Ordered By: Roddy Reeves on 01-02-2025 Urea nitrogen [Mass/Vol] 46 mg/dL High 4-19 [facility] Sodium levelOrdered By: Valentín Reeves on 01-02-2025 Sodium [Moles/Vol] 132 mmol/L Low 133-145 [facility] Squamous epithelial cells de tection in urine sediment by light microscopyOrdered By: Roddy Reeves on 01-02-2025 Epithelial cells.squamous LM Ql (Urine sed) 0 SEEN /hpf 0-5 [facility] Total proteinOrdered By: Zoila Reeves on 01-02-2025 Protein [Mass/Vol] 6.1 g/dL 5.9-8.4 [facility] Urine clarityOrdered By: Zoila Reeves on 01-02-2025 Clarity (U) Turbid Clear [facility] Urine color determinationOrd ered By: Roddy Reeves on 01-02-2025 Color (U) Red Yellow [facility] Urine cultureOrdered By: Zoila Reeves on 01-02-2025 Bacteria identified Cx Nom (U) Yeast, not Mary albicans Abnormal [facility] Urine glucose detectionOrder ed By: Roddy Reeves on 01-02-2025 Glucose Ql (U) Normal mg/dl Normal [facility] Urine leukocyte esterase det ection by dipstickOrdered By: Roddy Reeves on 01-02-2025 Leukocyte esterase Test strip Ql (U) 500 /ul High Negative [facility] Urine pHOrdered By: Roddy gonzalez on 01-02-2025 pH (U) 6.0 [pH] 5.0 - 8.0 [facility] Urine sediment bacteria coun t by microscopy (number/high power field)Ordered By: Roddy Reeves on 01-02-2025 Bacteria LM.HPF (Urine sed) [#/Area] 3 /[HPF] None Seen [facility] Urine specific gravity measu rementOrdered By: Roddy Reeves on 01-02-2025 Specific gravity (U) [Rel density] 1.015 1.002-1.030 [facility] Urine urobilinogen measureme ntOrdered By: Roddy Reeves on 01-02-2025 Urobilinogen Ql (U) Normal mg/dl Normal [facility] Venous blood ammonia measure mentOrdered By: Roddy Reeves on 01-02-2025 Ammonia (P) [Moles/Vol] 40.4 umol/L 16-60 [facility] White blood cell (WBC) count Ordered By: Roddy Reeves on 01-02-2025 WBC (Bld) [#/Vol] 12.7 10*3/uL High 4.4-11.0 [facility] White blood cell countOrdere d By: Roddy Reeves on 01-02-2025 White blood cell count 25-50 SEEN /hpf 0-5 [facility] Absolute lymphocyte countOrd ered By: Mina Blood on 12-30-2024 Lymphocytes Auto (Unsp spec) [#/Vol] 1.31 10*3/uL 0.83-4.51 [facility] Anion gap in Serum or Plasma Ordered By: Mina Blood on 12-30-2024 Anion gap [Moles/Vol] 15 mmol/L 5-15 [facility] Automated lymphocyte count a s percentage of total leukocytesOrdered By: Mina Blood on 12-30-2024 Lymphocytes/100 WBC Auto (Unsp spec) 14.0 % Low 19-41 [facility] BUN/creatinine ratioOrdered By: Mina Blood on 12-30-2024 Urea nitrogen/Creatinine [Mass ratio] 14.1 mg/mg 10-20 [facility] Basophil percentageOrdered B y: Mina Blood on 12-30-2024 Basophils/100 WBC (Bld) 0.4 % 0-1 [facility] Bilirubin Test strip Ql (U)O rdered By: Mina Blood on 12-30-2024 Bilirubin Ql (U) Negative Negative [facility] Carbon dioxide, total [Moles /volume] in Central venous bloodOrdered By: Mina Blood on 12-30-2024 CO2 [Moles/Vol] 22.1 mmol/L 21.0-32.0 [facility] Chloride assayOrdered By: Marcella Blood on 12-30-2024 Chloride [Moles/Vol] 91 mmol/L Low 98-108 [facility] Eosinophil percentageOrdered By: Mina Blood on 12-30-2024 Eosinophils/100 WBC (Bld) 6.2 % High 0-5 [facility] Erythrocyte distribution wid th ratioOrdered By: Mina Blood on 12-30-2024 Erythrocyte distribution width (RBC) [Ratio] 16.1 % High 11.6-14.6 [facility] Erythrocyte distribution wid th standard deviationOrdered By: Mina Blood on 12-30-2024 Erythrocyte distribution width (RBC) [Ratio] 50.9 fl High 35.1-43.9 [facility] Glomerular filtration rate ( GFR) estimation/1.73 sq m using serum, plasma, or whole bOrdered By: Mina Blood on 12-30-2024 GFR/1.73 sq M.predicted among non-blacks MDRD (S/P/Bld) [Vol rate/Area] 37 mL/min/{1.73_m2} Low >60 [facility] deOrdered By: Mina Blood on 12-30-2024 Glucose [Mass/Vol] 453 mg/dL High 74-106 [facility] Hematocrit Auto (Bld) [Volum e fraction]Ordered By: Mina Blood on 12-30-2024 Hematocrit (Bld) [Volume fraction] 25.8 % Low 40-54 [facility] Hemoglobin measurementOrdere d By: Mina Blood on 12-30-2024 Hemoglobin (Bld) [Mass/Vol] 8.7 g/dL Low 13.0-16.5 [facility] Immature granulocytes/100 WB C Auto (Bld)Ordered By: Mina Blood on 12-30-2024 Immature granulocytes/100 WBC (Bld) 0.600 % 0.0-0.9 [facility] Ketones Test strip Ql (U)Ord ered By: Mina Blood on 12-30-2024 Ketones Ql (U) Negative Negative [facility] MCV (mean corpuscular volume ) determinationOrdered By: Mina Blood on 12-30-2024 MCV (RBC) [Entitic vol] 88.1 fL 80-94 [facility] Magnesium measurement (mass/ volume)Ordered By: Mina Blood on 12-30-2024 Magnesium (Unsp spec) [Mass/Vol] 1.3 mg/dL Low 1.5-2.2 [facility] Mean corpuscular hemoglobin (MCH) determinationOrdered By: Mina Blood on 12-30-2024 MCH (RBC) [Entitic mass] 29.7 pg 27.0-32.0 [facility] Monocyte percentageOrdered B y: Mina Blood on 12-30-2024 Monocytes/100 WBC (Bld) 9.1 % 0-10 [facility] Mucus LM Ql (Urine sed)Order ed By: Mina Blood on 12-30-2024 Mucus Ql (Urine sed) 0 SEEN /hpf [facility] Neutrophil percentageOrdered By: Mina Blood on 12-30-2024 Neutrophils/100 WBC (Bld) 69.7 % 47-70 [facility] Nitrite Test strip Ql (U)Ord ered By: Mina Blood on 12-30-2024 Nitrite Ql (U) Negative Negative [facility] Platelet countOrdered By: Marcella Blood on 12-30-2024 Platelets (Bld) [#/Vol] 131 10*3/uL Low 150-450 [facility] Potassium measurement (mass/ volume)Ordered By: Mina Blood on 12-30-2024 Potassium (Unsp spec) [Mass/Vol] 3.2 mmol/L Low 3.3-5.1 [facility] Protein Test strip Ql (U)Ord ered By: Mina Blood on 12-30-2024 Protein Ql (U) 100 mg/dl High Negative [facility] RBC Auto (Bld) [#/Vol]Ordere d By: Mina Blood on 12-30-2024 RBC (Bld) [#/Vol] 2.93 10*6/uL Low 4.6-6.2 [facility] Serum creatinine measurement (mass/volume)Ordered By: Mina Blood on 12-30-2024 Creatinine [Mass/Vol] 2.05 mg/dL High 0.70-1.20 [facility] Serum glucose measurement (m ass/volume)Ordered By: Mina Blood on 12-30-2024 Glucose [Mass/Vol] 608 mg/dL High 70-99 [facility] Serum or plasma calcium roosevelt urement (mass/volume)Ordered By: Mina Blood on 12-30-2024 Calcium [Mass/Vol] 9.1 mg/dL 7.6-11.0 [facility] Serum or plasma urea nitroge n measurement (mass/volume)Ordered By: Mina Blood on 12-30-2024 Urea nitrogen [Mass/Vol] 29 mg/dL High 4-19 [facility] Sodium levelOrdered By: Magen Blood on 12-30-2024 Sodium [Moles/Vol] 128 mmol/L Low 133-145 [facility] Squamous epithelial cells de tection in urine sediment by light microscopyOrdered By: Mina Blood on 12-30-2024 Epithelial cells.squamous LM Ql (Urine sed) 0-5 SEEN /hpf 0-5 [facility] Transitional cells detection in urine sediment by light microscopyOrdered By: Mina Blood on 12-30-2024 Transitional cells LM Ql (Urine sed) 0-5 SEEN /hpf 0-5 [facility] Troponin T.cardiac [Mass/vol ume] in Serum or Plasma by High sensitivity methodOrdered By: Mina Blood on 12-30-2024 Troponin T.cardiac High sensitivity method [Mass/Vol] 20 ng/L <22 [facility] Troponin T.cardiac High sensitivity method [Mass/Vol] 19 ng/L <22 [facility] Urine clarityOrdered By: Ever Blood on 12-30-2024 Clarity (U) Cloudy Clear [facility] Urine color determinationOrd ered By: Mina Blood on 12-30-2024 Color (U) Lexis Yellow [facility] Urine cultureOrdered By: Ever Blood on 12-30-2024 Bacteria identified Cx Nom (U) GPC Poss Enterococcus sp Abnormal [facility] Bacteria identified Cx Nom (U) Positive Abnormal [facility] Urine glucose detectionOrder ed By: Mina Blood on 12-30-2024 Glucose Ql (U) 1000 mg/dl High Normal [facility] Urine leukocyte esterase det ection by dipstickOrdered By: Mina Blood on 12-30-2024 Leukocyte esterase Test strip Ql (U) 500 /ul High Negative [facility] Urine pHOrdered By: Mina ferrer on 12-30-2024 pH (U) 6.5 [pH] 5.0 - 8.0 [facility] Urine sediment bacteria coun t by microscopy (number/high power field)Ordered By: Mina Blood on 12-30-2024 Bacteria LM.HPF (Urine sed) [#/Area] 1 /[HPF] None Seen [facility] Urine specific gravity measu rementOrdered By: Mina Blood on 12-30-2024 Specific gravity (U) [Rel density] 1.010 1.002-1.030 [facility] Urine urobilinogen measureme ntOrdered By: Mina Blood on 12-30-2024 Urobilinogen Ql (U) Normal mg/dl Normal [facility] White blood cell (WBC) count Ordered By: Mina Blood on 12-30-2024 WBC (Bld) [#/Vol] 9.4 10*3/uL 4.4-11.0 [facility] White blood cell countOrdere d By: Mina Blood on 12-30-2024 White blood cell count >100 SEEN /hpf 0-5 [facility] Absolute lymphocyte countOrd ered By: Boone Carvajal on 12-26-2024 Lymphocytes Auto (Unsp spec) [#/Vol] 1.69 10*3/uL 0.83-4.51 [facility] Activated partial thrombopla stin time (aPTT) in platelet poor plasma by coagulation aOrdered By: Boone Carvajal on 12-26-2024 aPTT Coag (PPP) [Time] 36.3 s High 24.1-36.[address] [facility] Anion gap in Serum or Plasma Ordered By: Boone Carvajal on 12-26-2024 Anion gap [Moles/Vol] 14 mmol/L 5-15 [facility] Automated lymphocyte count a s percentage of total leukocytesOrdered By: Boone Carvajal on 12-26-2024 Lymphocytes/100 WBC Auto (Unsp spec) 15.3 % Low 19-41 [facility] BUN/creatinine ratioOrdered By: Boone Carvajal on 12-26-2024 Urea nitrogen/Creatinine [Mass ratio] 10.3 mg/mg 10-20 [facility] Basophil percentageOrdered B y: Boone Carvajal on 12-26-2024 Basophils/100 WBC (Bld) 0.5 % 0-1 [facility] Beta-hydroxybutyrateOrdered By: Boone Carvajal on 12-26-2024 Beta hydroxybutyrate [Mass/Vol] 0.1 mmol/L 0.0-0.3 [facility] Bilirubin Test strip Ql (U)O rdered By: Boone Carvajal on 12-26-2024 Bilirubin Ql (U) Negative Negative [facility] Bilirubin, totalOrdered By: Boone Carvajal on 12-26-2024 Bilirubin [Mass/Vol] 1.04 mg/dL 0.00-1.30 [facility] Carbon dioxide, total [Moles /volume] in Central venous bloodOrdered By: Boone Carvajal on 12-26-2024 CO2 [Moles/Vol] 20.4 mmol/L Low 21.0-32.0 [facility] Chloride assayOrdered By: Hunter Carvajal on 12-26-2024 Chloride [Moles/Vol] 100 mmol/L 98-108 [facility] Eosinophil percentageOrdered By: Boone Carvajal on 12-26-2024 Eosinophils/100 WBC (Bld) 5.8 % High 0-5 [facility] Erythrocyte distribution wid th ratioOrdered By: Boone Carvajal on 12-26-2024 Erythrocyte distribution width (RBC) [Ratio] 16.3 % High 11.6-14.6 [facility] Erythrocyte distribution wid th standard deviationOrdered By: Boone Carvajal on 12-26-2024 Erythrocyte distribution width (RBC) [Ratio] 54.4 fl High 35.1-43.9 [facility] Glomerular filtration rate ( GFR) estimation/1.73 sq m using serum, plasma, or whole bOrdered By: Boone Carvajal on 12-26-2024 GFR/1.73 sq M.predicted among non-blacks MDRD (S/P/Bld) [Vol rate/Area] 30 mL/min/{1.73_m2} Low >60 [facility] Hematocrit Auto (Bld) [Volum e fraction]Ordered By: Boone Carvajal on 12-26-2024 Hematocrit (Bld) [Volume fraction] 29.6 % Low 40-54 [facility] Hemoglobin measurementOrdere d By: Boone Carvajal on 12-26-2024 Hemoglobin (Bld) [Mass/Vol] 9.6 g/dL Low 13.0-16.5 [facility] Immature granulocytes/100 WB C Auto (Bld)Ordered By: Boone Carvajal on 12-26-2024 Immature granulocytes/100 WBC (Bld) 0.500 % 0.0-0.9 [facility] Ketones Test strip Ql (U)Ord ered By: Boone Carvajal on 12-26-2024 Ketones Ql (U) 5 mg/dl High Negative [facility] MCV (mean corpuscular volume ) determinationOrdered By: Boone Carvajal on 12-26-2024 MCV (RBC) [Entitic vol] 90.8 fL 80-94 [facility] Mean corpuscular hemoglobin (MCH) determinationOrdered By: Boone Carvajal on 12-26-2024 MCH (RBC) [Entitic mass] 29.4 pg 27.0-32.0 [facility] Monocyte percentageOrdered B y: Boone Carvajal on 12-26-2024 Monocytes/100 WBC (Bld) 7.4 % 0-10 [facility] Mucus LM Ql (Urine sed)Order ed By: Boone Carvajal on 12-26-2024 Mucus Ql (Urine sed) 0 SEEN /hpf [facility] Neutrophil percentageOrdered By: Boone Carvajal on 12-26-2024 Neutrophils/100 WBC (Bld) 70.5 % High 47-70 [facility] Nitrite Test strip Ql (U)Ord ered By: Boone Carvajal on 12-26-2024 Nitrite Ql (U) Negative Negative [facility] No Panel InformationOrdered By: Boone Carvajal on 12-26-2024 58 U/L High <38 [facility] Platelet countOrdered By: Hunter Carvajal on 12-26-2024 Platelets (Bld) [#/Vol] 139 10*3/uL Low 150-450 [facility] Potassium measurement (mass/ volume)Ordered By: Boone Carvajal on 12-26-2024 Potassium (Unsp spec) [Mass/Vol] 3.5 mmol/L 3.3-5.1 [facility] Protein Test strip Ql (U)Ord ered By: Boone Carvajal on 12-26-2024 Protein Ql (U) 500 mg/dl High Negative [facility] Prothrombin timeOrdered By: Boone Carvajal on 12-26-2024 PT Coag (PPP) [Time] 18.5 s High 11.7-14.9 [facility] RBC Auto (Bld) [#/Vol]Ordere d By: Boone Carvajal on 12-26-2024 RBC (Bld) [#/Vol] 3.26 10*6/uL Low 4.6-6.2 [facility] Serum creatinine measurement (mass/volume)Ordered By: Boone Carvajal on 12-26-2024 Creatinine [Mass/Vol] 2.42 mg/dL High 0.70-1.20 [facility] Serum globulin measurementOr dered By: Boone Carvajal on 12-26-2024 Globulin (S) [Mass/Vol] 3.5 g/dL 2.2-4.2 [facility] Serum glucose measurement (m ass/volume)Ordered By: Boone Carvajal on 12-26-2024 Glucose [Mass/Vol] 386 mg/dL High 70-99 [facility] Serum or plasma alanine thomas otransferase (ALT) measurementOrdered By: Boone Carvajal on 12-26-2024 ALT [Catalytic activity/Vol] 27 U/L <47 [facility] Serum or plasma albumin roosevelt urement (mass/volume)Ordered By: Boone Carvajal on 12-26-2024 Albumin [Mass/Vol] 2.8 g/dL Low 3.5-5.0 [facility] Serum or plasma albumin/glob ulin mass ratioOrdered By: Boone Carvajal on 12-26-2024 Albumin/Globulin [Mass ratio] 0.8 {ratio} Low 0.9-2.4 [facility] Serum or plasma alkaline kendrick sphatase measurementOrdered By: Boone Carvajal on 12-26-2024 ALP [Catalytic activity/Vol] 207 U/L High 40-129 [facility] Serum or plasma calcium roosevelt urement (mass/volume)Ordered By: Boone Carvajal on 12-26-2024 Calcium [Mass/Vol] 8.9 mg/dL 7.6-11.0 [facility] Serum or plasma urea nitroge n measurement (mass/volume)Ordered By: Boone Carvajal on 12-26-2024 Urea nitrogen [Mass/Vol] 25 mg/dL High 4-19 [facility] Sodium levelOrdered By: Boone Carvajal on 12-26-2024 Sodium [Moles/Vol] 135 mmol/L 133-145 [facility] Squamous epithelial cells de tection in urine sediment by light microscopyOrdered By: Boone Carvajal on 12-26-2024 Epithelial cells.squamous LM Ql (Urine sed) 0 SEEN /hpf 0-5 [facility] Total proteinOrdered By: Danita Carvajal on 12-26-2024 Protein [Mass/Vol] 6.3 g/dL 5.9-8.4 [facility] Urine clarityOrdered By: Danita Carvajal on 12-26-2024 Clarity (U) Cloudy Clear [facility] Urine color determinationOrd ered By: Boone Carvajal on 12-26-2024 Color (U) Lexis Yellow [facility] Urine cultureOrdered By: Danita Carvajal on 12-26-2024 Bacteria identified Cx Nom (U) Enterococcus faecalis Abnormal [facility] Bacteria identified Cx Nom (U) GNR lactose shaft repairer Abnormal [facility] Urine glucose detectionOrder ed By: Boone Carvajal on 12-26-2024 Glucose Ql (U) Normal mg/dl Normal [facility] Urine leukocyte esterase det ection by dipstickOrdered By: oBone Carvajal on 12-26-2024 Leukocyte esterase Test strip Ql (U) 500 /ul High Negative [facility] Urine pHOrdered By: Boone romo on 12-26-2024 pH (U) 6.0 [pH] 5.0 - 8.0 [facility] Urine sediment bacteria coun t by microscopy (number/high power field)Ordered By: Boone Carvajal on 12-26-2024 Bacteria LM.HPF (Urine sed) [#/Area] 0 /[HPF] None Seen [facility] Urine specific gravity measu rementOrdered By: Boone Carvajal on 12-26-2024 Specific gravity (U) [Rel density] 1.015 1.002-1.030 [facility] Urine urobilinogen measureme ntOrdered By: Boone Carvajal on 12-26-2024 Urobilinogen Ql (U) Normal mg/dl Normal [facility] Venous blood ammonia measure mentOrdered By: Boone Carvajal on 12-26-2024 Ammonia (P) [Moles/Vol] 114.0 umol/L High 16-60 [facility] White blood cell (WBC) count Ordered By: Boone Carvajal on 12-26-2024 WBC (Bld) [#/Vol] 11.0 10*3/uL 4.4-11.0 [facility] White blood cell countOrdere d By: Boone Carvajal on 12-26-2024 White blood cell count 25-50 SEEN /hpf 0-5 [facility] Absolute lymphocyte countOrd ered By: Josy Elias on 12-07-2024 Lymphocytes Auto (Unsp spec) [#/Vol] 1.71 10*3/uL 0.83-4.51 [facility] Anion gap in Serum or Plasma Ordered By: Josy Elias on 12-07-2024 Anion gap [Moles/Vol] 12 mmol/L 5-15 [facility] Automated lymphocyte count a s percentage of total leukocytesOrdered By: Josy Elias on 12-07-2024 Lymphocytes/100 WBC Auto (Unsp spec) 18.4 % Low 19-41 [facility] BUN/creatinine ratioOrdered By: Josy Elias on 12-07-2024 Urea nitrogen/Creatinine [Mass ratio] 10.0 mg/mg 10-20 [facility] Basophil percentageOrdered B y: Josy Elias on 12-07-2024 Basophils/100 WBC (Bld) 0.6 % 0-1 [facility] Bilirubin, totalOrdered By: Josy Elias on 12-07-2024 Bilirubin [Mass/Vol] 1.21 mg/dL 0.00-1.30 [facility] CNPTOUTREACHon 12-07-2024 CNPTOUTREACH Normal [facility] Carbon dioxide, total [Moles /volume] in Central venous bloodOrdered By: Josy Elias on 12-07-2024 CO2 [Moles/Vol] 20.0 mmol/L Low 21.0-32.0 [facility] Chloride assayOrdered By: Monica Elias on 12-07-2024 Chloride [Moles/Vol] 103 mmol/L 98-108 [facility] Eosinophil percentageOrdered By: Josy Elias on 12-07-2024 Eosinophils/100 WBC (Bld) 5.1 % High 0-5 [facility] Erythrocyte distribution wid th ratioOrdered By: Josy Elias on 12-07-2024 Erythrocyte distribution width (RBC) [Ratio] 16.9 % High 11.6-14.6 [facility] Erythrocyte distribution wid th standard deviationOrdered By: Josy Elias on 12-07-2024 Erythrocyte distribution width (RBC) [Ratio] 57.4 fl High 35.1-43.9 [facility] Gamma glutamyl transferase ( GGT) measurementOrdered By: Josy Elias on 12-07-2024 Amylase [Catalytic activity/Vol] 103 U/L High 0-65 [facility] Glomerular filtration rate ( GFR) estimation/1.73 sq m using serum, plasma, or whole bOrdered By: Josy Elias on 12-07-2024 GFR/1.73 sq M.predicted among non-blacks MDRD (S/P/Bld) [Vol rate/Area] 44 mL/min/{1.73_m2} Low >60 [facility] Hematocrit Auto (Bld) [Volum e fraction]Ordered By: Josy Elias on 12-07-2024 Hematocrit (Bld) [Volume fraction] 26.2 % Low 40-54 [facility] Hemoglobin A1c percentageOrd ered By: Josy Elias on 12-07-2024 HbA1c (Bld) [Mass fraction] 7.2 % High <5.7 [facility] Hemoglobin measurementOrdere d By: Josy Elias on 12-07-2024 Hemoglobin (Bld) [Mass/Vol] 8.5 g/dL Low 13.0-16.5 [facility] Immature granulocytes/100 WB C Auto (Bld)Ordered By: Josy Elias on 12-07-2024 Immature granulocytes/100 WBC (Bld) 0.300 % 0.0-0.9 [facility] MCV (mean corpuscular volume ) determinationOrdered By: Josy Elias on 12-07-2024 MCV (RBC) [Entitic vol] 93.2 fL 80-94 [facility] Mean corpuscular hemoglobin (MCH) determinationOrdered By: Josy Elias on 12-07-2024 MCH (RBC) [Entitic mass] 30.2 pg 27.0-32.0 [facility] Monocyte percentageOrdered B y: Josy Elias on 12-07-2024 Monocytes/100 WBC (Bld) 12.1 % High 0-10 [facility] Neutrophil percentageOrdered By: Josy Elias on 12-07-2024 Neutrophils/100 WBC (Bld) 63.5 % 47-70 [facility] No Panel InformationOrdered By: Josy Elias on 12-07-2024 37 U/L <38 [facility] Platelet countOrdered By: Monica Elias on 12-07-2024 Platelets (Bld) [#/Vol] 145 10*3/uL Low 150-450 [facility] Potassium measurement (mass/ volume)Ordered By: Josy Elias on 12-07-2024 Potassium (Unsp spec) [Mass/Vol] 3.3 mmol/L 3.3-5.1 [facility] RBC Auto (Bld) [#/Vol]Ordere d By: Josy Elias on 12-07-2024 RBC (Bld) [#/Vol] 2.81 10*6/uL Low 4.6-6.2 [facility] Serum creatinine measurement (mass/volume)Ordered By: Josy Elias on 12-07-2024 Creatinine [Mass/Vol] 1.78 mg/dL High 0.70-1.20 [facility] Serum globulin measurementOr dered By: Josy Elias on 12-07-2024 Globulin (S) [Mass/Vol] 2.9 g/dL 2.2-4.2 [facility] Serum glucose measurement (m ass/volume)Ordered By: Josy Elias on 12-07-2024 Glucose [Mass/Vol] 185 mg/dL High 70-99 [facility] Serum or plasma alanine thomas otransferase (ALT) measurementOrdered By: Josy Elias on 12-07-2024 ALT [Catalytic activity/Vol] 24 U/L <47 [facility] Serum or plasma albumin roosevelt urement (mass/volume)Ordered By: Josy Elias on 12-07-2024 Albumin [Mass/Vol] 2.6 g/dL Low 3.5-5.0 [facility] Serum or plasma albumin/glob ulin mass ratioOrdered By: Josy Elias on 12-07-2024 Albumin/Globulin [Mass ratio] 0.9 {ratio} 0.9-2.4 [facility] Serum or plasma alkaline kendrick sphatase measurementOrdered By: Josy Elias on 12-07-2024 ALP [Catalytic activity/Vol] 241 U/L High 40-129 [facility] Serum or plasma calcium roosevelt urement (mass/volume)Ordered By: Josy Elias on 12-07-2024 Calcium [Mass/Vol] 8.2 mg/dL 7.6-11.0 [facility] Serum or plasma urea nitroge n measurement (mass/volume)Ordered By: Josy Elias on 12-07-2024 Urea nitrogen [Mass/Vol] 18 mg/dL 4-19 [facility] Sodium levelOrdered By: Terrance Elias on 12-07-2024 Sodium [Moles/Vol] 136 mmol/L 133-145 [facility] Total proteinOrdered By: Chinedu Elias on 12-07-2024 Protein [Mass/Vol] 5.5 g/dL Low 5.9-8.4 [facility] White blood cell (WBC) count Ordered By: Josy Elias on 12-07-2024 WBC (Bld) [#/Vol] 9.3 10*3/uL 4.4-11.0 [facility] Absolute lymphocyte countOrd ered By: Hill Acuña on 12-02-2024 Lymphocytes Auto (Unsp spec) [#/Vol] 0.92 10*3/uL 0.83-4.51 [facility] Anion gap in Serum or Plasma Ordered By: Hill Acuña on 12-02-2024 Anion gap [Moles/Vol] 7 mmol/L 5-15 [facility] Automated lymphocyte count a s percentage of total leukocytesOrdered By: Hill Acuña on 12-02-2024 Lymphocytes/100 WBC Auto (Unsp spec) 15.7 % Low 19-41 [facility] BUN/creatinine ratioOrdered By: Hill Acuña on 12-02-2024 Urea nitrogen/Creatinine [Mass ratio] 8.1 mg/mg Low 10-20 [facility] Basophil percentageOrdered B y: Hill Acuña on 12-02-2024 Basophils/100 WBC (Bld) 0.5 % 0-1 [facility] Bilirubin, totalOrdered By: Hill Acuña on 12-02-2024 Bilirubin [Mass/Vol] 1.07 mg/dL 0.00-1.30 [facility] Carbon dioxide, total [Moles /volume] in Central venous bloodOrdered By: Hill Acuña on 12-02-2024 CO2 [Moles/Vol] 21.0 mmol/L 21.0-32.0 [facility] Chloride assayOrdered By: Kvng Acuña on 12-02-2024 Chloride [Moles/Vol] 104 mmol/L 98-108 [facility] Eosinophil percentageOrdered By: Hill Acuña on 12-02-2024 Eosinophils/100 WBC (Bld) 3.6 % 0-5 [facility] Erythrocyte distribution wid th ratioOrdered By: Hill Acuña on 12-02-2024 Erythrocyte distribution width (RBC) [Ratio] 16.2 % High 11.6-14.6 [facility] Erythrocyte distribution wid th standard deviationOrdered By: Hill Acuña on 12-02-2024 Erythrocyte distribution width (RBC) [Ratio] 53.0 fl High 35.1-43.9 [facility] Glomerular filtration rate ( GFR) estimation/1.73 sq m using serum, plasma, or whole bOrdered By: Hill Acuña on 12-02-2024 GFR/1.73 sq M.predicted among non-blacks MDRD (S/P/Bld) [Vol rate/Area] 98 mL/min/{1.73_m2} >60 [facility] Glucose measurement at bedsi deOrdered By: Hill Acuña on 12-02-2024 Glucose [Mass/Vol] 259 mg/dL High 74-106 [facility] Hematocrit Auto (Bld) [Volum e fraction]Ordered By: Hill Acuña on 12-02-2024 Hematocrit (Bld) [Volume fraction] 21.9 % Low 40-54 [facility] Hemoglobin measurementOrdere d By: Hill Acuña on 12-02-2024 Hemoglobin (Bld) [Mass/Vol] 7.2 g/dL Low 13.0-16.5 [facility] Immature granulocytes/100 WB C Auto (Bld)Ordered By: Hill Acuña on 12-02-2024 Immature granulocytes/100 WBC (Bld) 0.500 % 0.0-0.9 [facility] MCV (mean corpuscular volume ) determinationOrdered By: Hill Acuña on 12-02-2024 MCV (RBC) [Entitic vol] 89.8 fL 80-94 [facility] Magnesium measurement (mass/ volume)Ordered By: Hill Acuña on 12-02-2024 Magnesium (Unsp spec) [Mass/Vol] 1.6 mg/dL 1.5-2.2 [facility] Mean corpuscular hemoglobin (MCH) determinationOrdered By: Hill Acuña on 12-02-2024 MCH (RBC) [Entitic mass] 29.5 pg 27.0-32.0 [facility] Monocyte percentageOrdered B y: Hill Acuña on 12-02-2024 Monocytes/100 WBC (Bld) 13.3 % High 0-10 [facility] Neutrophil percentageOrdered By: Hill Acuña on 12-02-2024 Neutrophils/100 WBC (Bld) 66.4 % 47-70 [facility] No Panel InformationOrdered By: Hill Acuña on 12-02-2024 58 U/L High <38 [facility] Platelet countOrdered By: Kvng Acuña on 12-02-2024 Platelets (Bld) [#/Vol] 100 10*3/uL Low 150-450 [facility] Potassium measurement (mass/ volume)Ordered By: Hill Acuña on 12-02-2024 Potassium (Unsp spec) [Mass/Vol] 3.8 mmol/L 3.3-5.1 [facility] RBC Auto (Bld) [#/Vol]Ordere d By: Hill Acuña on 12-02-2024 RBC (Bld) [#/Vol] 2.44 10*6/uL Low 4.6-6.2 [facility] Serum creatinine measurement (mass/volume)Ordered By: Hill Acuña on 12-02-2024 Creatinine [Mass/Vol] 0.90 mg/dL 0.70-1.20 [facility] Serum globulin measurementOr dered By: Hill Acuña on 12-02-2024 Globulin (S) [Mass/Vol] 2.6 g/dL 2.2-4.2 [facility] Serum glucose measurement (m ass/volume)Ordered By: Hill Acuña on 12-02-2024 Glucose [Mass/Vol] 221 mg/dL High 70-99 [facility] Serum or plasma alanine thomas otransferase (ALT) measurementOrdered By: Hill Acuña on 12-02-2024 ALT [Catalytic activity/Vol] 33 U/L <47 [facility] Serum or plasma albumin roosevelt urement (mass/volume)Ordered By: Hill Acuña on 12-02-2024 Albumin [Mass/Vol] 2.5 g/dL Low 3.5-5.0 [facility] Serum or plasma albumin/glob ulin mass ratioOrdered By: Hill Acuña on 12-02-2024 Albumin/Globulin [Mass ratio] 1.0 {ratio} 0.9-2.4 [facility] Serum or plasma alkaline kendrick sphatase measurementOrdered By: Hill Acuña on 12-02-2024 ALP [Catalytic activity/Vol] 219 U/L High 40-129 [facility] Serum or plasma calcium roosevelt urement (mass/volume)Ordered By: Hill Acuña on 12-02-2024 Calcium [Mass/Vol] 7.8 mg/dL 7.6-11.0 [facility] Serum or plasma urea nitroge n measurement (mass/volume)Ordered By: Hill Acuña on 12-02-2024 Urea nitrogen [Mass/Vol] 7 mg/dL 4-19 [facility] Sodium levelOrdered By: Paulino Acuña on 12-02-2024 Sodium [Moles/Vol] 132 mmol/L Low 133-145 [facility] Total proteinOrdered By: Hugo Acuña on 12-02-2024 Protein [Mass/Vol] 5.1 g/dL Low 5.9-8.4 [facility] Trough vancomycin levelOrder ed By: Maria Guadalupe Shore on 12-02-2024 Vancomycin trough [Mass/Vol] 19.6 ug/mL High 5.0-15.0 [facility] White blood cell (WBC) count Ordered By: Hill Acuña on 12-02-2024 WBC (Bld) [#/Vol] 5.9 10*3/uL 4.4-11.0 [facility] Platelet estimateOrdered By: Hill Acuña on 11-30-2024 Platelets LM Ql (Bld) MOD DEC ADEQ [facility] Serum or plasma vancomycin m easurement (mass/volume)Ordered By: Kathie Powers on 11-30-2024 Vancomycin [Mass/Vol] 17.7 ug/mL High 0.0-15.0 [facility] Prothrombin timeOrdered By: Kathie Powers on 11-29-2024 PT Coag (PPP) [Time] 21.1 s High 11.7-14.9 [facility] Bilirubin Test strip Ql (U)O rdered By: Rachel Joiner on 11-28-2024 Bilirubin Ql (U) Negative Negative [facility] Bilirubin directOrdered By: Rachel Joiner on 11-28-2024 Bilirubin.direct [Mass/Vol] 0.72 mg/dL High 0.00-0.30 [facility] Ketones Test strip Ql (U)Ord ered By: Rachel Joiner on 11-28-2024 Ketones Ql (U) 5 mg/dl High Negative [facility] Mucus LM Ql (Urine sed)Order ed By: Rachel Joiner on 11-28-2024 Mucus Ql (Urine sed) 0 SEEN /hpf [facility] Nitrite Test strip Ql (U)Ord ered By: Rachel Joiner on 11-28-2024 Nitrite Ql (U) Positive High Negative [facility] Protein Test strip Ql (U)Ord ered By: Rachel Joiner on 11-28-2024 Protein Ql (U) 100 mg/dl High Negative [facility] Squamous epithelial cells de tection in urine sediment by light microscopyOrdered By: Rachel Joiner on 11-28-2024 Epithelial cells.squamous LM Ql (Urine sed) 0-5 SEEN /hpf 0-5 [facility] Urine clarityOrdered By: Shi Joiner on 11-28-2024 Clarity (U) Cloudy Clear [facility] Urine color determinationOrd ered By: Rachel Joiner on 11-28-2024 Color (U) Lexis Yellow [facility] Urine cultureOrdered By: Tyree Powers on 11-28-2024 Bacteria identified Cx Nom (U) ESBL Klebsiella pneumoniae pne Abnormal [facility] Urine glucose detectionOrder ed By: Rachel Joiner on 11-28-2024 Glucose Ql (U) Normal mg/dl Normal [facility] Urine leukocyte esterase det ection by dipstickOrdered By: Rachel Joiner on 11-28-2024 Leukocyte esterase Test strip Ql (U) 500 /ul High Negative [facility] Urine pHOrdered By: Rachel silva on 11-28-2024 pH (U) 6.5 [pH] 5.0 - 8.0 [facility] Urine sediment bacteria coun t by microscopy (number/high power field)Ordered By: Rachel Joiner on 11-28-2024 Bacteria LM.HPF (Urine sed) [#/Area] 1 /[HPF] None Seen [facility] Urine specific gravity measu rementOrdered By: Rachel Joiner on 11-28-2024 Specific gravity (U) [Rel density] 1.010 1.002-1.030 [facility] Urine urobilinogen measureme ntOrdered By: Rachel Joiner on 11-28-2024 Urobilinogen Ql (U) Normal mg/dl Normal [facility] Venous blood ammonia measure mentOrdered By: Rachel Joiner on 11-28-2024 Ammonia (P) [Moles/Vol] 68.4 umol/L High 16-60 [facility] White blood cell countOrdere d By: Rachel Joiner on 11-28-2024 White blood cell count 50-100 SEEN /hpf 0-5 [facility] Absolute lymphocyte countOrd ered By: Anurag Irene on 11-25-2024 Lymphocytes Auto (Unsp spec) [#/Vol] 0.92 10*3/uL 0.83-4.51 [facility] Anion gap in Serum or Plasma Ordered By: Anurag Irene on 11-25-2024 Anion gap [Moles/Vol] 8 mmol/L 5-15 [facility] Automated lymphocyte count a s percentage of total leukocytesOrdered By: Anurag Irene on 11-25-2024 Lymphocytes/100 WBC Auto (Unsp spec) 16.7 % Low 19-41 [facility] BUN/creatinine ratioOrdered By: Anurag Irene on 11-25-2024 Urea nitrogen/Creatinine [Mass ratio] 9.2 mg/mg Low 10-20 [facility] Basophil percentageOrdered B y: Anurag Irene on 11-25-2024 Basophils/100 WBC (Bld) 0.4 % 0-1 [facility] Bilirubin, totalOrdered By: Anurag Irene on 11-25-2024 Bilirubin [Mass/Vol] 1.07 mg/dL 0.00-1.30 [facility] Carbon dioxide, total [Moles /volume] in Central venous bloodOrdered By: Anurag Irene on 11-25-2024 CO2 [Moles/Vol] 19.3 mmol/L Low 21.0-32.0 [facility] Chloride assayOrdered By: Francois Irene on 11-25-2024 Chloride [Moles/Vol] 108 mmol/L 98-108 [facility] Eosinophil percentageOrdered By: Anurag Irene on 11-25-2024 Eosinophils/100 WBC (Bld) 4.2 % 0-5 [facility] Erythrocyte distribution wid th ratioOrdered By: Anurag Irene on 11-25-2024 Erythrocyte distribution width (RBC) [Ratio] 15.8 % High 11.6-14.6 [facility] Erythrocyte distribution wid th standard deviationOrdered By: Anurag Irene on 11-25-2024 Erythrocyte distribution width (RBC) [Ratio] 52.9 fl High 35.1-43.9 [facility] Glomerular filtration rate ( GFR) estimation/1.73 sq m using serum, plasma, or whole bOrdered By: Anurag Irene on 11-25-2024 GFR/1.73 sq M.predicted among non-blacks MDRD (S/P/Bld) [Vol rate/Area] 100 mL/min/{1.73_m2} >60 [facility] de[facility] By: Anurag Irene on 11-25-2024 Glucose [Mass/Vol] 222 mg/dL High 74-106 [facility] Hematocrit Auto (Bld) [Volum e fraction]Ordered By: Anurag Irene on 11-25-2024 Hematocrit (Bld) [Volume fraction] 21.5 % Low 40-54 [facility] Hemoglobin measurementOrdere d By: Anurag Irene on 11-25-2024 Hemoglobin (Bld) [Mass/Vol] 7.0 g/dL Low 13.0-16.5 [facility] Immature granulocytes/100 WB C Auto (Bld)Ordered By: Anurag Irene on 11-25-2024 Immature granulocytes/100 WBC (Bld) 0.400 % 0.0-0.9 [facility] MCV (mean corpuscular volume ) determinationOrdered By: Anurag Irene on 11-25-2024 MCV (RBC) [Entitic vol] 93.1 fL 80-94 [facility] Mean corpuscular hemoglobin (MCH) determinationOrdered By: Anurag Irene on 11-25-2024 MCH (RBC) [Entitic mass] 30.3 pg 27.0-32.0 [facility] Monocyte percentageOrdered B y: Anurag Irene on 11-25-2024 Monocytes/100 WBC (Bld) 12.7 % High 0-10 [facility] Neutrophil percentageOrdered By: Anurag Irene on 11-25-2024 Neutrophils/100 WBC (Bld) 65.6 % 47-70 [facility] No Panel InformationOrdered By: Anurag Irene on 11-25-2024 60 U/L High <38 [facility] Platelet countOrdered By: Francois Irene on 11-25-2024 Platelets (Bld) [#/Vol] 82 10*3/uL Low 150-450 [facility] Potassium measurement (mass/ volume)Ordered By: Anurag Irene on 11-25-2024 Potassium (Unsp spec) [Mass/Vol] 4.2 mmol/L 3.3-5.1 [facility] RBC Auto (Bld) [#/Vol]Ordere d By: Anurag Irene on 11-25-2024 RBC (Bld) [#/Vol] 2.31 10*6/uL Low 4.6-6.2 [facility] Serum creatinine measurement (mass/volume)Ordered By: Anurag Irene on 11-25-2024 Creatinine [Mass/Vol] 0.86 mg/dL 0.70-1.20 [facility] Serum globulin measurementOr dered By: Anurag Irene on 11-25-2024 Globulin (S) [Mass/Vol] 2.2 g/dL 2.2-4.2 [facility] Serum glucose measurement (m ass/volume)Ordered By: Anurag Irene on 11-25-2024 Glucose [Mass/Vol] 179 mg/dL High 70-99 [facility] Serum or plasma alanine thomas otransferase (ALT) measurementOrdered By: Anurag Irene on 11-25-2024 ALT [Catalytic activity/Vol] 41 U/L <47 [facility] Serum or plasma albumin roosevelt urement (mass/volume)Ordered By: Anurag Irene on 11-25-2024 Albumin [Mass/Vol] 2.7 g/dL Low 3.5-5.0 [facility] Serum or plasma albumin/glob ulin mass ratioOrdered By: Anurag Irene on 11-25-2024 Albumin/Globulin [Mass ratio] 1.2 {ratio} 0.9-2.4 [facility] Serum or plasma alkaline kendrick sphatase measurementOrdered By: Anurag Irene on 11-25-2024 ALP [Catalytic activity/Vol] 168 U/L High 40-129 [facility] Serum or plasma calcium roosevelt urement (mass/volume)Ordered By: Anurag Irene on 11-25-2024 Calcium [Mass/Vol] 8.3 mg/dL 7.6-11.0 [facility] Serum or plasma urea nitroge n measurement (mass/volume)Ordered By: Anurag Irene on 11-25-2024 Urea nitrogen [Mass/Vol] 8 mg/dL 4-19 [facility] Sodium levelOrdered By: Marni Irene on 11-25-2024 Sodium [Moles/Vol] 135 mmol/L 133-145 [facility] Total proteinOrdered By: [place] Irene on 11-25-2024 Protein [Mass/Vol] 4.9 g/dL Low 5.9-8.4 [facility] White blood cell (WBC) count Ordered By: Anurag Irene on 11-25-2024 WBC (Bld) [#/Vol] 5.5 10*3/uL 4.4-11.0 [facility] Blood manual differential co mment interpretation (narrative result)Ordered By: Anurag Irene on 11-24-2024 Manual differential comment Marco Antonio (Bld) [Interp] SCANNED [facility] Platelet estimateOrdered By: Aunrag Irene on 11-24-2024 Platelets LM Ql (Bld) MOD DEC ADEQ [facility] Prothrombin timeOrdered By: Anurag Irene on 11-24-2024 PT Coag (PPP) [Time] 22.6 s High 11.7-14.9 [facility] Bilirubin directOrdered By: Anurag Irene on 11-22-2024 Bilirubin.direct [Mass/Vol] 0.73 mg/dL High 0.00-0.30 [facility] ALP [Catalytic activity/Vol] Ordered By: Herberth Carlsno on 11-21-2024 Serum or plasma alkaline phosphatase measurement 245 U/L High 40-129 [facility] ALT [Catalytic activity/Vol] Ordered By: Herberth Carlson on 11-21-2024 Serum or plasma alanine aminotransferase (ALT) measurement 61 U/L High <47 [facility] Absolute neutrophil countOrd ered By: Herberth Carlson on 11-21-2024 Absolute neutrophil count 6.5 X10^3/uL 2.0-7.7 [facility] Albumin [Mass/Vol]Ordered By : Herberth Carlson on 11-21-2024 Serum or plasma albumin measurement (mass/volume) 2.5 g/dL Low 3.5-5.0 [facility] Albumin/Globulin [Mass ratio ]Ordered By: Herberth Carlson on 11-21-2024 Serum or plasma albumin/globulin mass ratio 0.9 RATIO 0.9-2.4 [facility] Anion gap [Moles/Vol]Ordered By: Herberth Carlson on 11-21-2024 Anion gap in Serum or Plasma 11 5-15 [facility] BUN/creatinine ratioOrdered By: Herberth Carlson on 11-21-2024 BUN/creatinine ratio 19.1 RATIO 10-20 [facility] Bacteria LM.HPF (Urine sed) [#/Area]Ordered By: Herberth Carlson on 11-21-2024 Urine sediment bacteria count by microscopy (number/high power field) RARE /hpf None Seen [facility] Basophil percentageOrdered B y: Herberth Carlson on 11-21-2024 Basophil percentage 0.2 % 0-1 [facility] Bilirubin Test strip Ql (U)O rdered By: Herberth Carlson on 11-21-2024 Bilirubin Ql (U) Negative Negative [facility] Bilirubin, totalOrdered By: Herberth Carlson on 11-21-2024 Bilirubin, total 1.33 mg/dL High 0.00-1.30 [facility] Calcium [Mass/Vol]Ordered By : Herberth Carlson on 11-21-2024 Serum or plasma calcium measurement (mass/volume) 8.7 mg/dL 7.6-11.0 [facility] Carbon dioxide, total [Moles /volume] in Central venous bloodOrdered By: Herberth Carlson on 11-21-2024 Carbon dioxide, total [Moles/volume] in Central venous blood 17.5 mmol/L Low 21.0-32.0 [facility] Chloride assayOrdered By: Kaylyn Carlson on 11-21-2024 Chloride assay 103 mmol/L 98-108 [facility] Clarity (U)Ordered By: Ashish Carlson on 11-21-2024 Urine clarity Sl Cldy Clear [facility] Color (U)Ordered By: Herberth Carlson on 11-21-2024 Urine color determination Yellow Yellow [facility] Creatinine [Mass/Vol]Ordered By: Herberth Carlson on 11-21-2024 Serum creatinine measurement (mass/volume) 1.49 mg/dL High 0.70-1.20 [facility] Eosinophil percentageOrdered By: Herberth Carlson on 11-21-2024 Eosinophil percentage 7.2 % High 0-5 [facility] Erythrocyte distribution wid th (RBC) [Ratio]Ordered By: Herberth Carlson on 11-21-2024 Erythrocyte distribution width ratio 16.8 % High 11.6-14.6 [facility] Erythrocyte distribution width standard deviation 57.1 fl High 35.1-43.9 [facility] Estimation of creatinine carolina aranceOrdered By: Herberth Carlson on 11-21-2024 Estimation of creatinine clearance 64.65 ml/min 50-250 [facility] GFR/1.73 sq M.predicted niki g non-blacks MDRD (S/P/Bld) [Vol rate/Area]Ordered By: Herberth Carlson on 11-21-2024 Glomerular filtration rate (GFR) estimation/1.73 sq m using serum, plasma, or whole b 54 Low >60 [facility] Glucose [Mass/Vol]Ordered By : Herberth Carlson on 11-21-2024 Serum glucose measurement (mass/volume) 188 mg/dL High 70-99 [facility] Hematocrit Auto (Bld) [Volum e fraction]Ordered By: Herberth Carlson 11-21-2024 Automated blood hematocrit (percentage) 24.6 % Low 40-54 [facility] Hemoglobin measurementOrdere d By: Herberth Carlson on 11-21-2024 Hemoglobin measurement 8.3 g/dL Low 13.0-16.[address] [facility] Immature granulocytes/100 WB C Auto (Bld)Ordered By: Herberth Carlson 11-21-2024 Automated immature granulocyte percentage 0.800 % 0.0-0.9 [facility] International normalized rat io (INR) calculationOrdered By: Herberth Carlson 11-21-2024 International normalized ratio (INR) calculation 2.6 [facility] Ketones Test strip Ql (U)Ord ered By: Herberth Carlson on 11-21-2024 Ketones Ql (U) Negative Negative [facility] Lactic acid measurementOrder ed By: Herberth Carlson on 11-21-2024 Lactic acid measurement 2.7 mmol/L High 0.0-2.0 [facility] Leukocyte esterase Test stri p Ql (U)Ordered By: Herberth Carlson on 11-21-2024 Urine leukocyte esterase detection by dipstick 500 /ul High Negative [facility] Lymphocytes Auto (Unsp spec) [#/Vol]Ordered By: Herberth Carlson on 11-21-2024 Absolute lymphocyte count 1.33 X10^3/uL 0.83-4.51 [facility] Lymphocytes/100 WBC Auto (Un sp spec)Ordered By: Herberth Carlson on 11-21-2024 Automated lymphocyte count as percentage of total leukocytes 13.9 % Low 19-41 [facility] MCV (RBC) [Entitic vol]Order ed By: Herberth Carlson on 11-21-2024 MCV (mean corpuscular volume) determination 93.2 fL 80-94 [facility] Mean corpuscular hemoglobin (MCH) determinationOrdered By: Herberth Carlson on 11-21-2024 Mean corpuscular hemoglobin (MCH) determination 31.4 pg 27.0-32.0 [facility] Mean corpuscular hemoglobin concentration (MCHC) determinationOrdered By: Herberth Carlson on 11-21-2024 Mean corpuscular hemoglobin concentration (MCHC) determination 33.7 g/dL 32-36 [facility] Mean platelet volume determi nationOrdered By: Herberth Carlson on 11-21-2024 Mean platelet volume determination 11.6 fl 6.2-12.0 [facility] Monocyte percentageOrdered B y: Herberth Carlson on 11-21-2024 Monocyte percentage 9.2 % 0-10 [facility] Mucus LM Ql (Urine sed)Order ed By: Herberth Carlson on 11-21-2024 Mucus Ql (Urine sed) 0 SEEN /hpf [facility] Neutrophil percentageOrdered By: Herberth Carlson on 11-21-2024 Neutrophil percentage 68.7 % 47-70 [facility] Nitrite Test strip Ql (U)Ord ered By: Herberth Carlson on 11-21-2024 Nitrite Ql (U) Negative Negative [facility] No Panel InformationOrdered By: Herberth Carlson on 11-21-2024 112 U/L High <38 [facility] Nucleated red blood cell per centageOrdered By: Herberth Carlson on 11-21-2024 Nucleated red blood cell percentage 0 % 0-5 [facility] Platelet countOrdered By: Kaylyn Carlson on 11-21-2024 Platelet count 167 K/mm3 150-450 [facility] Potassium (Unsp spec) [Mass/ Vol]Ordered By: Herberth Carlson on 11-21-2024 Potassium measurement (mass/volume) 5.0 mmol/L 3.3-5.1 [facility] Protein Test strip Ql (U)Ord ered By: Herberth Carlson on 11-21-2024 Protein Ql (U) 500 mg/dl High Negative [facility] Urine protein assay by test strip, semi-quantitative 500 mg/dl High Negative [facility] Prothrombin timeOrdered By: Herberth Carlson on 11-21-2024 Prothrombin time 28.2 SECONDS High 11.7-14.9 [facility] RBC Auto (Bld) [#/Vol]Ordere d By: Herberth Carlson on 11-21-2024 Automated blood erythrocyte count 2.64 M/mm3 Low 4.6-6.2 [facility] Serum globulin measurementOr dered By: Herberth Carlson on 11-21-2024 Serum globulin measurement 2.7 g/dL 2.2-4.2 [facility] Sodium levelOrdered By: Norman Carlson on 11-21-2024 Sodium level 132 mmol/L Low 133-145 [facility] Specific gravity (U) [Rel de nsity]Ordered By: Herberth Carlson on 11-21-2024 Urine specific gravity measurement 1.015 1.002-1.030 [facility] Squamous epithelial cells de tection in urine sediment by light microscopyOrdered By: Herberth Carlson on 11-21-2024 Epithelial cells.squamous LM Ql (Urine sed) 0 SEEN /hpf 0-5 [facility] Squamous epithelial cells detection in urine sediment by light microscopy 0 SEEN /hpf [facility] Total proteinOrdered By: Digna Carlson on 11-21-2024 Total protein 5.2 g/dL Low 5.9-8.4 [facility] Urea nitrogen [Mass/Vol]Orde red By: Herberth Carlson on 11-21-2024 Serum or plasma urea nitrogen measurement (mass/volume) 28 mg/dL High 4-19 [facility] Urine blood detectionOrdered By: Herberth Carlson on 11-21-2024 Urine blood detection 250 /ul High Negative [facility] Urine clarityOrdered By: Digna Carlson on 11-21-2024 Clarity (U) Sl Cldy Clear [facility] Urine color determinationOrd ered By: Herberth Carlson on 11-21-2024 Color (U) Yellow Yellow [facility] Urine cultureOrdered By: Digna Carlson on 11-21-2024 Bacteria identified Cx Nom (U) GNR lactose shaft repairer Abnormal [facility] Bacteria identified Cx Nom (U) GPC Poss Enterococcus sp Abnormal [facility] Bacteria identified Cx Nom (U) Positive Abnormal [facility] Urine glucose detectionOrder ed By: Herberth Carlson on 11-21-2024 Glucose Ql (U) Normal mg/dl Normal [facility] Urine glucose detection Normal mg/dl Normal [facility] Urine leukocyte esterase det ection by dipstickOrdered By: Herberth Carlson on 11-21-2024 Leukocyte esterase Test strip Ql (U) 500 /ul High Negative [facility] Urine pHOrdered By: Herberth Carlson on 11-21-2024 pH (U) 6.0 [pH] 5.0 - 8.0 [facility] Urine sediment bacteria coun t by microscopy (number/high power field)Ordered By: Herberth Carlson on 11-21-2024 Bacteria LM.HPF (Urine sed) [#/Area] RARE /hpf None Seen [facility] Urine specific gravity measu rementOrdered By: Herberth Carlson on 11-21-2024 Specific gravity (U) [Rel density] 1.015 1.002-1.030 [facility] Urine total bilirubin detect ion by test stripOrdered By: Herberth Carlson on 11-21-2024 Urine total bilirubin detection by test strip Negative Negative [facility] Urine urobilinogen measureme ntOrdered By: Herberth Carlson on 11-21-2024 Urobilinogen Ql (U) Normal mg/dl Normal [facility] Venous blood ammonia measure mentOrdered By: Herberth Carlson on 11-21-2024 Ammonia (P) [Moles/Vol] 17.9 umol/L 16-60 [facility] Venous blood ammonia measurement 17.9 umol/L 16-60 [facility] White blood cell (WBC) count Ordered By: Herberth Carlson on 11-21-2024 White blood cell (WBC) count 9.5 K/mm3 4.4-11.0 [facility] White blood cell countOrdere d By: Herberth Carlson on 11-21-2024 White blood cell count >100 SEEN /hpf 0-5 [facility] White blood cell count >100 SEEN /hpf 0-5 [facility] pH (U)Ordered By: Herberth henao on 11-21-2024 Urine pH 6.0 5.0 - 8.0 [facility] Bacteria Ur Culton Bacteria identified Cx Nom (U) CULTURE, URINE: Mixed microbiota, including predominantly: ORGANISM ID: 1 >=100,000 CFU/ml Mary glabrata No susceptibility testing done. Normal [facility] Comment on above: Performed By: #### 6 30-4 ####[facility] LABCLIA [id number] [place] [address] [place] Bacteria identified Cx Nom (U) Normal [facility] Comment on above: Performed By: #### 2 4356-8, 630-4 ####[facility] LABCLIA [id number] [place] [address] [place] Basic metabolic 2000 panelon 11-18-2024 Anion gap [Moles/Vol] 8 mmol/L Normal 8-15 [facility] Comment on above: Order Comment: Speci men Type: BLOOD SPECIMENOrdering Facility: [facility] Address: [address] [place] [address] Performed By: #### 2 4321-2, 36592-8, 2777-1 ####[facility] LABCLIA [id number] [place] [address] [place] Calcium [Mass/Vol] 8.3 mg/dL Low 8.5-10.2 [facility] Comment on above: Order Comment: Speci men Type: BLOOD SPECIMENOrdering Facility: [facility] Address: [address] [place] [address] Performed By: #### 2 4321-2, 68658-0, 2777-1 ####[facility] LABIA [id number] [place] [id number] [place] Chloride [Moles/Vol] 102 mmol/L Normal 98-107 [facility] Comment on above: Order Comment: Speci men Type: BLOOD SPECIMENOrdering Facility: [facility] Address: [address] [place] [address] Performed By: #### 2 4321-2, 69552-7, 2777-1 ####[facility] LABIA [id number] [place] [address] [place] CO2 [Moles/Vol] 19 mmol/L Low 22-30 [facility] Comment on above: Order Comment: Speci men Type: BLOOD SPECIMENOrdering Facility: [facility] Address: [address] [place] [address] Performed By: #### 2 4321-2, 29293-8, 277- ####[facility] LABIA [id number] [place] [address] [place] Creatinine [Mass/Vol] 0.95 mg/dL Normal 0.73-1.22 [facility] Comment on above: Order Comment: Speci men Type: BLOOD SPECIMENOrdering Facility: [facility] Address: [address] [place] [address] Performed By: #### 2 4321-2, 59089-0, 2777- ####[facility] LABIA [id number] [place] [id number] [place] Creatinine and Glomerular filtration rate.predicted panel (S/P/Bld) 93 mL/min/1.73m??? Normal >=60 [facility] Comment on above: Order Comment: Speci men Type: BLOOD SPECIMENOrdering Facility: [facility] Address: [address] [place] [address] Result Comment: Patric mated Glomerular Filtration Rate [...] actual GFR. Performed By: #### 2 4321-2, 85589-1, 2777- ####[facility] LABIA [id number] [place] [id number] [place] Glucose [Mass/Vol] 248 mg/dL High 74-99 [facility] Comment on above: Order Comment: Ezekiel ramirez Type: BLOOD SPECIMENOrdering Facility: [facility] Address: [address] [place] [address] Result Comment: The [place] [employer] (ADA) provides guidance for cutoff [...] Standards of Medical Care in Diabetes 2016, [place] [employer]. Diabetes Care. 2016.39(Suppl 1). Performed By: #### 2 4321-2, 78289-2, 277- ####[facility] LABIA [id number] [address] [address] [place] Potassium [Moles/Vol] 4.4 mmol/L Normal 3.7-5.1 [facility] Comment on above: Order Comment: Ezekiel ramirez Type: BLOOD SPECIMENOrdering Facility: [facility] Address: [address] [place] [address] Performed By: #### 2 4321-2, 59366-3, 2777- ####[facility] LABCLIA [id number] [address] [address] [place] Sodium [Moles/Vol] 129 mmol/L Low 136-[facility] Comment on above: Order Comment: Speci men Type: BLOOD SPECIMENOrdering Facility: [facility] Address: [address] [place] [address] Performed By: #### 2 4321-2, 81629-9, 277- ####[facility] LABCLIA [id number] [place] [address] [place] Urea nitrogen [Mass/Vol] 16 mg/dL Normal 9-24 [facility] Comment on above: Order Comment: Speci men Type: BLOOD SPECIMENOrdering Facility: [facility] Address: [address] [place] [address] Performed By: #### 2 432-2, 24530-8, 27702-01 ####[facility] LABCLIA [id number] [place] [id number] [place] CASE MANAGEMon 11-18-2024 CASE MANAGEM Normal [facility] CBC W Auto Differential pane l (Bld)on 11-18-2024 Basophils (Bld) [#/Vol] 10*3/uL [facility].11 [facility] above: Order Comment: Speci men Type: BLOOD SPECIMENOrdering Facility: [facility] Address: [address] [place] [address] Performed By: #### 5 7021-8 ####[facility] LABIA [id number] [place] [id number] [place] Basophils/100 WBC (Bld) 0.0 % [facility] Comment on above: Order Comment: Speci men Type: BLOOD SPECIMENOrdering Facility: [facility] Address: [address] [place] [address] Performed By: #### 5 7021-8 ####[facility] LABCLIA [id number] [facility] [address], [facility] [place] Differential cell count method Nom (Bld) Auto Normal [facility] Comment on above: Order Comment: Speci men Type: BLOOD SPECIMENOrdering Facility: [facility] Address: [address] [place] [address] Performed By: #### 5 7021-8 ####[facility] LABCLIA [id number] [facility] [address], [place] [address] [place] Eosinophils (Bld) [#/Vol] 10*3/uL Normal <0.46 [facility] Comment on above: Order Comment: Speci men Type: BLOOD SPECIMENOrdering Facility: [facility] Address: [address] [place] [address] Performed By: #### 5 7021-8 ####[facility] LABCLIA [id number] [facility] [address], [place] [address] [place] Eosinophils/100 WBC (Bld) 0.1 % Normal [facility] Comment on above: Order Comment: Speci men Type: BLOOD SPECIMENOrdering Facility: [facility] Address: [address] [place] [address] Performed By: #### 5 7021-8 ####[facility] LABCLIA [id number] [address], [place] [address] [place] Erythrocyte distribution width (RBC) [Ratio] 16.7 % High 11.5-15.0 [facility] Comment on above: Order Comment: Speci men Type: BLOOD SPECIMENOrdering Facility: [facility] Address: [address] [place] [address] Performed By: #### 5 7021-8 ####[facility] LABCLIA [id number] [facility] [address], [facility] [place] Hematocrit (Bld) [Volume fraction] 21.5 % Low 39.0-51.0 [facility] Comment on above: Order Comment: Speci men Type: BLOOD SPECIMENOrdering Facility: [facility] Address: [address] [place] [address] Performed By: #### 5 7021-8 ####[facility] LABIA [id number] [place] [address] [place] Hemoglobin (Bld) [Mass/Vol] 7.2 g/dL Low 13.0-17.0 [facility] Comment on above: Order Comment: Speci men Type: BLOOD SPECIMENOrdering Facility: [facility] Address: [address] [place] [address] Performed By: #### 5 7021-8 ####[facility] LABIA [id number] [place] [address] [place] Immature granulocytes (Bld) [#/Vol] 0.06 10*3/uL Normal <0.10 [facility] Comment on above: Order Comment: Speci men Type: BLOOD SPECIMENOrdering Facility: [facility] Address: [address] [place] [address] Performed By: #### 5 7021-8 ####[facility] LABIA [id number] [place] [address] [place] Immature granulocytes/100 WBC (Bld) 0.7 % Normal [facility] Comment on above: Order Comment: Speci men Type: BLOOD SPECIMENOrdering Facility: [facility] Address: [address] [place] [address] Performed By: #### 5 7021-8 ####[facility] LABIA [id number] [place] [address] [place] Lymphocytes (Bld) [#/Vol] 0.61 10*3/uL Low 1.00-4.00 [facility] Comment on above: Order Comment: Speci men Type: BLOOD SPECIMENOrdering Facility: [facility] Address: [address] [place] [address] Performed By: #### 5 7021-8 ####[facility] LABCLIA [id number] [place] [address] [place] Lymphocytes/100 WBC (Bld) 7.3 % Normal [facility] Comment on above: Order Comment: Speci men Type: BLOOD SPECIMENOrdering Facility: [facility] Address: [address] [place] [address] Performed By: #### 5 7021-8 ####[facility] LABIA [id number] [place] [address] [place] MCH (RBC) [Entitic mass] 30.9 pg Normal 26.0-34.0 [facility] Comment on above: Order Comment: Speci men Type: BLOOD SPECIMENOrdering Facility: [facility] Address: [address] [place] [address] Performed By: #### 5 7021-8 ####[facility] LABIA [id number] [place] [address] [place] MCHC (RBC) [Mass/Vol] 33.5 g/dL Normal 30.5-36.0 [facility] Comment on above: Order Comment: Speci men Type: BLOOD SPECIMENOrdering Facility: [facility] Address: [address] [place] [address] Performed By: #### 5 7021-8 ####[facility] LABIA [id number] [place] [address] [place] MCV (RBC) [Entitic vol] 92.3 fL Normal 80.0-100.0 [facility] Comment on above: Order Comment: Speci men Type: BLOOD SPECIMENOrdering Facility: [facility] Address: [address] [place] [address] Performed By: #### 5 7021-8 ####[facility] LABIA [id number] [place] [address] [place] Monocytes (Bld) [#/Vol] 0.72 10*3/uL Normal <0.87 [facility] Comment on above: Order Comment: Speci men Type: BLOOD SPECIMENOrdering Facility: [facility] Address: [address] [place] [address] Performed By: #### 5 7021-8 ####[facility] LABCLIA [id number] [address] [address] [place] Monocytes/100 WBC (Bld) 8.7 % Normal [facility] Comment on above: Order Comment: Speci men Type: BLOOD SPECIMENOrdering Facility: [facility] Address: [address] [place] [address] Performed By: #### 5 7021-8 ####[facility] LABCLIA [id number] [place] [id number] [place] Neutrophils (Bld) [#/Vol] 6.92 10*3/uL Normal 1.45-7.50 [facility] Comment on above: Order Comment: Speci men Type: BLOOD SPECIMENOrdering Facility: [facility] Address: [address] [place] [address] Performed By: #### 5 7021-8 ####[facility] LABCLIA [id number] [address] [address] [place] Neutrophils/100 WBC (Bld) 83.2 % Normal [facility] Comment on above: Order Comment: Speci men Type: BLOOD SPECIMENOrdering Facility: [facility] Address: [address] [place] [address] Performed By: #### 5 7021-8 ####[facility] LABCLIA [id number] [address] [address] [place] Nucleated RBC (Bld) [#/Vol] 10*3/uL Normal <0.01 [facility] Comment on above: Order Comment: Speci men Type: BLOOD SPECIMENOrdering Facility: [facility] Address: [address] [place] [address] Performed By: #### 5 7021-8 ####[facility] LABCLIA [id number] [address], [place] [address] [place] Nucleated RBC/100 WBC (Bld) [Ratio] 0.0 /100 WBC Normal [facility] Comment on above: Order Comment: Speci men Type: BLOOD SPECIMENOrdering Facility: [facility] Address: [address] [place] [address] Performed By: #### 5 7021-8 ####[facility] LABIA [id number] [address], [place] [address] [place] Platelet mean volume (Bld) [Entitic vol] 12.1 fL Normal 9.0-12.7 [facility] Comment on above: Order Comment: Speci men Type: BLOOD SPECIMENOrdering Facility: [facility] Address: [address] [place] [address] Performed By: #### 5 7021-8 ####[facility] LABIA [id number] [place] [address] [place] Platelets (Bld) [#/Vol] 76 10*3/uL Low 150-400 [facility] Comment on above: Order Comment: Speci men Type: BLOOD SPECIMENOrdering Facility: [facility] Address: [address] [place] [address] Result Comment: No c lot detected. Performed By: #### 5 7021-8 ####[facility] LABIA [id number] [place] [address] [place] RBC (Bld) [#/Vol] 2.33 10*6/uL Low 4.20-6.00 [facility] Comment on above: Order Comment: Speci men Type: BLOOD SPECIMENOrdering Facility: [facility] Address: [address] [place] [address] Performed By: #### 5 7021-8 ####[facility] LABIA [id number] [place] [address] [place] WBC (Bld) [#/Vol] 8.32 10*3/uL Normal 3.70-11.00 [facility] Comment on above: Order Comment: Speci men Type: BLOOD SPECIMENOrdering Facility: [facility] Address: [address] [place] [address] Performed By: #### 5 7021-8 ####[facility] LABCLIA [id number] [place] [address] [place] CNCOon 11-18-2024 CNCO Letter Text Normal [facility] CNDSon 11-18-2024 CNDS Normal [facility] CNPNon 11-18-2024 CNPN Normal [facility] Fibrinogen PPP-mCncon 2024 Fibrinogen Coag (PPP) [Mass/Vol] 104 mg/dL Low 200-400 [facility] Comment on above: Order Comment: Speci men Type: BLOOD SPECIMENOrdering Facility: [facility] Address: [address] [place] [address] Performed By: #### 3 255-7, 94699-1 ####[facility] LABCLIA [id number] [place] [address] [place] Hepatic function 2000 panelo n 11-18-2024 Albumin [Mass/Vol] 2.6 g/dL Low 3.9-4.9 [facility] Comment on above: Order Comment: Speci men Type: BLOOD SPECIMENOrdering Facility: [facility] Address: [address] [place] [address] Performed By: #### 2 4321-2, 16968-4, 2777-1 ####[facility] LABCLIA [id number] [place] [address] [place] ALP [Catalytic activity/Vol] 245 U/L High 38-113 [facility] Comment on above: Order Comment: Speci men Type: BLOOD SPECIMENOrdering Facility: [facility] Address: [address] [place] [address] Performed By: #### 2 4321-2, 15480-4, 2776- ####[facility] LABCLIA [id number] [place] [id number] [place] ALT [Catalytic activity/Vol] 31 U/L Normal 10-54 [facility] Comment on above: Order Comment: Speci men Type: BLOOD SPECIMENOrdering Facility: [facility] Address: [address] [place] [address] Performed By: #### 2 4321-2, 91557-2, 2776- ####[facility] LABIA [id number] [place] [address] [place] AST [Catalytic activity/Vol] 52 U/L High 14-40 [facility] Comment on above: Order Comment: Speci men Type: BLOOD SPECIMENOrdering Facility: [facility] Address: [address] [place] [address] Performed By: #### 2 432-2, 07877-1, 2776-08 ####[facility] LABIA [id number] [place] [address] [place] Bilirubin [Mass/Vol] 1.2 mg/dL Normal 0.2-1.3 [facility] Comment on above: Order Comment: Speci men Type: BLOOD SPECIMENOrdering Facility: [facility] Address: [address] [place] [address] Performed By: #### 2 432-2, 61365-7, 2776-08 ####[facility] LABIA [id number] [place] [id number] [place] Bilirubin.conjugated [Mass/Vol] 0.7 mg/dL High <0.3 [facility] Comment on above: Order Comment: Speci men Type: BLOOD SPECIMENOrdering Facility: [facility] Address: [address] [place] [address] Performed By: #### 2 4321-2, 31238-3, 2776- ####[facility] LABCLIA [id number] [place] [id number] [place] Protein [Mass/Vol] 5.0 g/dL Low 6.3-8.0 [facility] Comment on above: Order Comment: Ezekiel ramirez Type: BLOOD SPECIMENOrdering Facility: [facility] Address: [address] [place] [address] Performed By: #### 2 4321-2, 86060-2, 2776- ####[facility] LABCLIA [id number] [place] [address] [place] NURSING PROGon 11-18-2024 NURSING PROG Normal [facility] PT panel Coag (PPP)on 2024 INR Coag (PPP) [Relative time] 2.0 {INR} High 0.9-1.3 [facility] Comment on above: Order Comment: Spechelder ramirez Type: BLOOD SPECIMENOrdering Facility: [facility] Address: [address] [place] [address] Result Comment: Sarah min K Antagonist (VKA) Therapeutic Range: INR 2 to 3 (Target INR of 2.5)Note: For patients treated with VKA drugs, such as warfarin, the [place] [employer] 2012 Guideline recommends [...] 3).Tammi GONZALES, et al. Chest 2012, 141:7S-47SHector HIRSCH, et al. [facility] 2017, 70: 252-289 Performed By: #### 3 255-7, 13206-5 ####[facility] LABCLIA [id number] [place] [address] [place] PT Coag (PPP) [Time] 20.9 s High 9.7-13.0 [facility] Comment on above: Order Comment: Speci men Type: BLOOD SPECIMENOrdering Facility: [facility] Address: [address] [place] [address] Performed By: #### 3 255-7, 55873-6 ####[facility] LABIA [id number] [place] [address] [place] Phosphate SerPl-mCncon 11-18 Phosphate [Mass/Vol] 2.4 mg/dL Low 2.7-4.8 [facility] Comment on above: Order Comment: Speci men Type: BLOOD SPECIMENOrdering Facility: [facility] Address: [address] [place] [address] Performed By: #### 2 4321-2, 71668-6, 2777-1 ####[facility] LABIA [id number] [place] [address] [place] TYPE + SCREENon 11-18-2024 ABO O Normal [facility] Comment on above: Order Comment: Speci men Type: BLOOD SPECIMENOrdering Facility: [facility] Address: [address] [place] [address] Performed By: #### T SCR ####[facility] B[facility] BANKCLIA [id number] [place] [address] [place] Rh Nom (Bld) Positive Normal [facility] Comment on above: Order Comment: Speci men Type: BLOOD SPECIMENOrdering Facility: [facility] Address: [address] [place] [address] Performed By: #### T SCR ####[facility] BLO[facility] BANKCLIA [id number] [place] [address] [place] TYPE AND SCREEN EXPIRATION 11/21/2024 23:59 Normal [facility] Comment on above: Order Comment: Speci men Type: BLOOD SPECIMENOrdering Facility: [facility] Address: [address] [place] [address] Performed By: #### T SCR ####[facility] [id number] [place] [address] [place] Urinalysis complete panel (U )on 11-18-2024 BACTERIA UL 1671.0 uL High Negative [facility] Comment on above: Order Comment: Speci men Type: URINE SPECIMENOrdering Facility: [facility] Address: [address] [place] [address] Performed By: #### 2 4356-8, 630-4 ####[facility] LABCLIA [id number] [place] [address] [place] Bilirubin Ql (U) 2+ Abnormal Negative [facility] Comment on above: Order Comment: Speci men Type: URINE SPECIMENOrdering Facility: [facility] Address: [address] [place] [address] Result Comment: Sugg est correlation with clinical findings and serum bilirubin if clinically indicated. Performed By: #### 2 4356-8, 630-4 ####[facility] LABCLIA [id number] [place] [address] [place] CALCIUM OXALATE CRYSTALS (UA) Few Abnormal None Seen [facility] Comment on above: Order Comment: Speci men Type: URINE SPECIMENOrdering Facility: [facility] Address: [address] [place] [address] Performed By: #### 2 4356-8, 630-4 ####[facility] LABCLIA [id number] [place] [id number] [place] Clarity (Unsp spec) Turbid Abnormal Clear [facility] Comment on above: Order Comment: Speci men Type: URINE SPECIMENOrdering Facility: [facility] Address: [address] [place] [address] Performed By: #### 2 4356-8, 630-4 ####[facility] LABCLIA [id number] [address] [place] [address] [place] Color (U) Red Abnormal Yellow [facility] Comment on above: Order Comment: Speci men Type: URINE SPECIMENOrdering Facility: [facility] Address: [address] [place] [address] Performed By: #### 2 4356-8, 630-4 ####[facility] LABCLIA [id number] [address], [address] [place] Epithelial cells LM.HPF (Urine sed) [#/Area] None Seen Normal [facility] Comment on above: Order Comment: Speci men Type: URINE SPECIMENOrdering Facility: [facility] Address: [address] [place] [address] Performed By: #### 2 4356-8, 630-4 ####[facility] LABCLIA [id number] [address], [address] [place] Glucose Test strip (U) [Mass/Vol] Negative Normal Negative [facility] Comment on above: Order Comment: Speci men Type: URINE SPECIMENOrdering Facility: [facility] Address: [address] [place] [address] Performed By: #### 2 4356-8, 630-4 ####[facility] LABCLIA [id number] [address], [place] [address] [place] Hemoglobin Ql (U) 2+ Abnormal Negative [facility] Comment on above: Order Comment: Speci men Type: URINE SPECIMENOrdering Facility: [facility] Address: [address] [place] [address] Performed By: #### 2 4356-8, 630-4 ####[facility] LABCLIA [id number] [facility] [address], [facility] [place] Hyaline casts (Urine sed) [#/Area] 0 /[LPF] Normal 0 /LPF [facility] Comment on above: Order Comment: Speci men Type: URINE SPECIMENOrdering Facility: [facility] Address: [address] [place] [address] Performed By: #### 2 4356-8, 630-4 ####[facility] LABCLIA [id number] [address] [place] [address] [place] Ketones Ql (U) Negative Normal Negative [facility] Comment on above: Order Comment: Speci men Type: URINE SPECIMENOrdering Facility: [facility] Address: [address] [place] [address] Performed By: #### 2 4356-8, 630-4 ####[facility] LABCLIA [id number] [address], [place] [address] [place] Leukocyte esterase Test strip Ql (U) 3+ Abnormal Negative [facility] Comment on above: Order Comment: Speci men Type: URINE SPECIMENOrdering Facility: [facility] Address: [address] [place] [address] Performed By: #### 2 4356-8, 630-4 ####[facility] LABCLIA [id number] [address], [place] [address] [place] Nitrite Ql (U) Negative Normal Negative [facility] Comment on above: Order Comment: Speci men Type: URINE SPECIMENOrdering Facility: [facility] Address: [address] [place] [address] Result Comment: Resu lt rechecked. Performed By: #### 2 4356-8, 630-4 ####[facility] LABCLIA [id number] [address], [facility]95 [place] pH (U) 5.0 [pH] Normal <8.5 [facility] Comment on above: Order Comment: Speci men Type: URINE SPECIMENOrdering Facility: [facility] Address: [address] [place] [address] Performed By: #### 2 4356-8, 630-4 ####[facility] LABCLIA [id number] [place] [address] [place] Protein (U) [Mass/Vol] 2+ Abnormal Negative Cl [facility] Comment on above: Order Comment: Speci men Type: URINE SPECIMENOrdering Facility: [facility] Address: [address] [place] [address] Performed By: #### 2 4356-8, 630-4 ####[facility] LABIA [id number] [place] [address] [place] RBC LM.HPF (Urine sed) [#/Area] /[HPF] Abnormal 0-2 /HPF [facility] Comment on above: Order Comment: Speci men Type: URINE SPECIMENOrdering Facility: [facility] Address: [address] [place] [address] Performed By: #### 2 4356-8, 630-4 ####[facility] [id number] [place] [address] [place] Specific gravity (U) [Rel density] 1.021 Normal 1.005-1.030 [facility] Comment on above: Order Comment: Speci men Type: URINE SPECIMENOrdering Facility: [facility] Address: [address] [place] [address] Performed By: #### 2 4356-8, 630-4 ####[facility] LABIA [id number] [place] [address] [place] [facility] Urobilinogen Ql (U) 0.2 EU/dL Normal 0.2-1.0 EU/dL [facility] Comment on above: Order Comment: Speci men Type: URINE SPECIMENOrdering Facility: [facility] Address: [address] [place] [address] Performed By: #### 2 4356-8, 630-4 ####[facility] LABIA [id number] [place] [address] [place] WBC LM.HPF (Urine sed) [#/Area] /[HPF] Abnormal 0-5 /HPF [facility] Comment on above: Order Comment: Speci men Type: URINE SPECIMENOrdering Facility: [facility] Address: [address] [place] [address] Performed By: #### 2 4356-8, 630-4 ####[facility] LABCLIA [id number] [place] [address] [place] Yeast.budding LM.HPF (Urine sed) [#/Area] Present Abnormal None Seen [facility] Comment on above: Order Comment: Speci men Type: URINE SPECIMENOrdering Facility: [facility] Address: [address] [place] [address] Performed By: #### 2 4356-8, 630-4 ####[facility] LABIA [id number] [place] [address] [place] Basic metabolic 2000 panelon 11-17-2024 Anion gap [Moles/Vol] 10 mmol/L Normal 8-15 [facility] Comment on above: Order Comment: Speci men Type: BLOOD SPECIMENOrdering Facility: [facility] Address: [address] [place] [address] Performed By: #### 2 4321-2, 33388-3, 2777-1 ####[facility] LABCLIA [id number] [place] [address] [place] Calcium [Mass/Vol] 8.9 mg/dL Normal 8.5-10.2 [facility] Comment on above: Order Comment: Speci men Type: BLOOD SPECIMENOrdering Facility: [facility] Address: [address] [place] [address] Performed By: #### 2 4321-2, 19885-8, 2777-1 ####[facility] LABCLIA [id number] [address] [address] [place] Chloride [Moles/Vol] 105 mmol/L Normal 98-107 [facility] Comment on above: Order Comment: Speci men Type: BLOOD SPECIMENOrdering Facility: [facility] Address: [address] [place] [address] Performed By: #### 2 4321-2, 66201-8, 2776-08 ####[facility] LABCLIA [id number] [place] [id number] [place] CO2 [Moles/Vol] 17 mmol/L Low 22-30 [facility] Comment on above: Order Comment: Speci men Type: BLOOD SPECIMENOrdering Facility: [facility] Address: [address] [place] [address] Performed By: #### 2 4321-2, 95669-2, 2776-08 ####[facility] LABCLIA [id number] [place] [id number] [place] Creatinine [Mass/Vol] 0.77 mg/dL Normal 0.73-1.22 [facility] Comment on above: Order Comment: Speci men Type: BLOOD SPECIMENOrdering Facility: [facility] Address: [address] [place] [address] Performed By: #### 2 4321-2, 71178-5, 2776-08 ####[facility] LABCLIA [id number] [place] [id number] [place] Creatinine and Glomerular filtration rate.predicted panel (S/P/Bld) 104 mL/min/1.73m??? Normal >=60 [facility] Comment on above: Order Comment: Speci men Type: BLOOD SPECIMENOrdering Facility: [facility] Address: [address] [place] [address] Result Comment: Patric mated Glomerular Filtration Rate [...] actual GFR. Performed By: #### 2 4321-2, 62380-3, 2776-08 ####[facility] LABCLIA [id number] [address] [address] [place] Glucose [Mass/Vol] 291 mg/dL High 74-99 [facility] Comment on above: Order Comment: Speci men Type: BLOOD SPECIMENOrdering Facility: [facility] Address: [address] [place] [address] Result Comment: The [place] [employer] (ADA) provides guidance for cutoff [...] Standards of Medical Care in Diabetes 2016, [place] [employer]. Diabetes Care. 2016.39(Suppl 1). Performed By: #### 2 4321-2, 41367-7, 2776-08 ####[facility] LABIA [id number] [place] [id number] [place] Potassium [Moles/Vol] 4.5 mmol/L Normal 3.7-5.1 [facility] Comment on above: Order Comment: Speci men Type: BLOOD SPECIMENOrdering Facility: [facility] Address: [address] [place] [address] Performed By: #### 2 4321-2, 46305-5, 2776-08 ####[facility] LABIA [id number] [place] [id number] [place] Sodium [Moles/Vol] 132 mmol/L Low 136-144 [facility] Comment on above: Order Comment: Speci men Type: BLOOD SPECIMENOrdering Facility: [facility] Address: [address] [place] [address] Performed By: #### 2 4321-2, 13848-5, 2777-1 ####[facility] LABCLIA [id number] [place] [address] [place] Urea nitrogen [Mass/Vol] 9 mg/dL Normal 9-24 [facility] Comment on above: Order Comment: Speci men Type: BLOOD SPECIMENOrdering Facility: [facility] Address: [address] [place] [address] Performed By: #### 2 4321-2, 30681-1, 2777-1 ####[facility] LABCLIA [id number] [place] [address] [place] CASE MANAGEMon 11-17-2024 CASE MANAGEM Normal [facility] CBC W Auto Differential pane l (Bld)on 11-17-2024 Basophils (Bld) [#/Vol] 10*3/uL Normal <0.11 [facility] Comment on above: Order Comment: Speci men Type: BLOOD SPECIMENOrdering Facility: [facility] Address: [address] [place] [address] Performed By: #### 5 7021-8 ####[facility] LABCLIA [id number] [place] [address] [place] Basophils/100 WBC (Bld) 0.0 % Normal C [facility] Comment on above: Order Comment: Speci men Type: BLOOD SPECIMENOrdering Facility: [facility] Address: [address] [place] [address] Performed By: #### 5 7021-8 ####[facility] LABCLIA [id number] [place] [address] [place] Differential cell count method Nom (Bld) Auto Normal [facility] Comment on above: Order Comment: Speci men Type: BLOOD SPECIMENOrdering Facility: [facility] Address: [address] [place] [address] Performed By: #### 5 7021-8 ####[facility] LABCLIA [id number] [address], [place] [address] [place] Eosinophils (Bld) [#/Vol] 10*3/uL Normal <0.46 [facility] Comment on above: Order Comment: Speci men Type: BLOOD SPECIMENOrdering Facility: [facility] Address: [address] [place] [address] Performed By: #### 5 7021-8 ####[facility] LABCLIA [id number] [address], [place] [address] [place] Eosinophils/100 WBC (Bld) 0.0 % Normal [facility] Comment on above: Order Comment: Speci men Type: BLOOD SPECIMENOrdering Facility: [facility] Address: [address] [place] [address] Performed By: #### 5 7021-8 ####[facility] LABCLIA [id number] [address], [place] [address] [place] Erythrocyte distribution width (RBC) [Ratio] 16.9 % High 11.5-15.0 [facility] Comment on above: Order Comment: Speci men Type: BLOOD SPECIMENOrdering Facility: [facility] Address: [address] [place] [address] Performed By: #### 5 7021-8 ####[facility] LABCLIA [id number] [place] [address] [place] Hematocrit (Bld) [Volume fraction] 22.7 % Low 39.0-51.0 [facility] Comment on above: Order Comment: Speci men Type: BLOOD SPECIMENOrdering Facility: [facility] Address: [address] [place] [address] Performed By: #### 5 7021-8 ####[facility] LABCLIA [id number] [address], [facility] [place] Hemoglobin (Bld) [Mass/Vol] 7.7 g/dL Low 13.0-17.0 [facility] Comment on above: Order Comment: Speci men Type: BLOOD SPECIMENOrdering Facility: [facility] Address: [address] [place] [address] Performed By: #### 5 7021-8 ####[facility] LABCLIA [id number] [facility] [place] [address] [place] Immature granulocytes (Bld) [#/Vol] 0.03 10*3/uL Normal <0.10 [facility] Comment on above: Order Comment: Speci men Type: BLOOD SPECIMENOrdering Facility: [facility] Address: [address] [place] [address] Performed By: #### 5 7021-8 ####[facility] LABCLIA [id number] [place] [address] [place] Immature granulocytes/100 WBC (Bld) 0.9 % Normal [facility] Comment on above: Order Comment: Speci men Type: BLOOD SPECIMENOrdering Facility: [facility] Address: [address] [place] [address] Performed By: #### 5 7021-8 ####[facility] LABCLIA [id number] [place] [address] [place] Lymphocytes (Bld) [#/Vol] 0.28 10*3/uL Low 1.00-4.00 [facility] Comment on above: Order Comment: Speci men Type: BLOOD SPECIMENOrdering Facility: [facility] Address: [address] [place] [address] Performed By: #### 5 7021-8 ####[facility] LABCLIA [id number] [place] [address] [place] Lymphocytes/100 WBC (Bld) 8.3 % Normal [facility] Comment on above: Order Comment: Speci men Type: BLOOD SPECIMENOrdering Facility: [facility] Address: [address] [place] [address] Performed By: #### 5 7021-8 ####[facility] LABIA [id number] [place] [address] [place] MCH (RBC) [Entitic mass] 31.7 pg Normal 26.0-34.0 [facility] Comment on above: Order Comment: Speci men Type: BLOOD SPECIMENOrdering Facility: [facility] Address: [address] [place] [address] Performed By: #### 5 7021-8 ####[facility] LABIA [id number] [place] [address] [place] MCHC (RBC) [Mass/Vol] 33.9 g/dL Normal 30.5-36.0 [facility] Comment on above: Order Comment: Speci men Type: BLOOD SPECIMENOrdering Facility: [facility] Address: [address] [place] [address] Performed By: #### 5 7021-8 ####[facility] [id number] [place] [address] [place] MCV (RBC) [Entitic vol] 93.4 fL Normal 80.0-100.0 [facility] Comment on above: Order Comment: Speci men Type: BLOOD SPECIMENOrdering Facility: [facility] Address: [address] [place] [address] Performed By: #### 5 7021-8 ####[facility] LABIA [id number] [place] [address] [place] Monocytes (Bld) [#/Vol] 0.17 10*3/uL Normal <0.87 [facility] Comment on above: Order Comment: Speci men Type: BLOOD SPECIMENOrdering Facility: [facility] Address: [address] [place] [address] Performed By: #### 5 7021-8 ####[facility] [id number] [place] [address] [place] Monocytes/100 WBC (Bld) 5.0 % Normal [facility] Comment on above: Order Comment: Speci men Type: BLOOD SPECIMENOrdering Facility: [facility] Address: [address] [place] [address] Performed By: #### 5 7021-8 ####[facility] LABCLIA [id number] [place] [address] [place] Neutrophils (Bld) [#/Vol] 2.89 10*3/uL Normal 1.45-7.50 [facility] Comment on above: Order Comment: Speci men Type: BLOOD SPECIMENOrdering Facility: [facility] Address: [address] [place] [address] Performed By: #### 5 7021-8 ####[facility] LABCLIA [id number] [place] [address] [place] Neutrophils/100 WBC (Bld) 85.8 % Normal [facility] Comment on above: Order Comment: Speci men Type: BLOOD SPECIMENOrdering Facility: [facility] Address: [address] [place] [address] Performed By: #### 5 7021-8 ####[facility] LABCLIA [id number] [place] [address] [place] Nucleated RBC (Bld) [#/Vol] 10*3/uL Normal <0.01 [facility] Comment on above: Order Comment: Speci men Type: BLOOD SPECIMENOrdering Facility: [facility] Address: [address] [place] [address] Performed By: #### 5 7021-8 ####[facility] LABCLIA [id number] [place] [address] [place] Nucleated RBC/100 WBC (Bld) [Ratio] 0.0 /100 WBC Normal [facility] Comment on above: Order Comment: Speci men Type: BLOOD SPECIMENOrdering Facility: [facility] Address: [address] [place] [address] Performed By: #### 5 7021-8 ####[facility] LABCLIA [id number] [place] [id number] [place] Platelet mean volume (Bld) [Entitic vol] 12.0 fL Normal 9.0-12.7 [facility] Comment on above: Order Comment: Speci men Type: BLOOD SPECIMENOrdering Facility: [facility] Address: [address] [place] [address] Performed By: #### 5 7021-8 ####[facility] LABCLIA [id number] [place] [id number] [place] Platelets (Bld) [#/Vol] 57 10*3/uL Low 150-400 [facility] Comment on above: Order Comment: Speci men Type: BLOOD SPECIMENOrdering Facility: [facility] Address: [address] [place] [address] Performed By: #### 5 7021-8 ####[facility] LABIA [id number] [place] [address] [place] RBC (Bld) [#/Vol] 2.43 10*6/uL Low 4.20-6.00 [facility] Comment on above: Order Comment: Speci men Type: BLOOD SPECIMENOrdering Facility: [facility] Address: [address] [place] [address] Performed By: #### 5 7021-8 ####[facility] LABCLIA [id number] [address] [address] [place] WBC (Bld) [#/Vol] 3.37 10*3/uL Low 3.70-11.00 [facility] Comment on above: Order Comment: Speci men Type: BLOOD SPECIMENOrdering Facility: [facility] Address: [address] [place] [address] Performed By: #### 5 7021-8 ####[facility] LABCLIA [id number] [place] [address] [place] CONSULT PROGon 11-17-2024 CONSULT PROG Normal [facility] Fact Xa PPP-aCncon Coagulation factor X activated act Coag Qn (PPP) <0.10 Normal <0.10 [facility] Comment on above: Order Comment: Ezekiel ramirez Type: BLOOD SPECIMENOrdering Facility: [facility] Address: [address] [place] [address] Result Comment: The recommended therapeutic range for treatment of venous and arterial thrombosis with intravenous unfractionated heparin is an anti Xa activity level of 0.3 to 0.7 IU/mL. In patients with concomitant therapy with thrombolytic agents and/or platelet glycoprotein IIb/IIIa antagonists, the recommended therapeutic range is an anti Xa activity level of 0.2 to 0.5 IU/mL. Performed By: #### 3 217-7 ####[facility] [id number] [place] [address] [place] Fibrinogen PPP-mCncon 2024 Fibrinogen Coag (PPP) [Mass/Vol] 114 mg/dL Low 200-400 [facility] Comment on above: Order Comment: Ezekiel ramirez Type: BLOOD SPECIMENOrdering Facility: [facility] Address: [address] [place] [address] Performed By: #### 3 255-7, 84429-5 ####[facility] LABIA [id number] [place] [address] [place] Hepatic function 2000 panelo n 11-17-2024 Albumin [Mass/Vol] 2.7 g/dL Low 3.9-4.9 [facility] Comment on above: Order Comment: Ezekiel ramirez Type: BLOOD SPECIMENOrdering Facility: [facility] Address: [address] [place] [address] Performed By: #### 2 4321-2, 55400-7, 2777-1 ####[facility] LABIA [id number] [place] [address] [place] ALP [Catalytic activity/Vol] 276 U/L High 38-113 [facility] Comment on above: Order Comment: Speci men Type: BLOOD SPECIMENOrdering Facility: [facility] Address: [address] [place] [address] Performed By: #### 2 4321-2, 60140-8, 2777-1 ####[facility] LABCLIA [id number] [place] [address] [place] ALT [Catalytic activity/Vol] 35 U/L Normal 10-54 [facility] Comment on above: Order Comment: Speci men Type: BLOOD SPECIMENOrdering Facility: [facility] Address: [address] [place] [address] Performed By: #### 2 4321-2, 49525-6, 2777-1 ####[facility] LABCLIA [id number] [place] [address] [place] AST [Catalytic activity/Vol] 80 U/L High 14-40 [facility] Comment on above: Order Comment: Speci men Type: BLOOD SPECIMENOrdering Facility: [facility] Address: [address] [place] [address] Performed By: #### 2 4321-2, 67699-7, 2777-1 ####[facility] LABCLIA [id number] [place] [address] [place] Bilirubin [Mass/Vol] 1.8 mg/dL High 0.2-1.3 [facility] Comment on above: Order Comment: Speci men Type: BLOOD SPECIMENOrdering Facility: [facility] Address: [address] [place] [address] Performed By: #### 2 4321-2, 27675-3, 2777-1 ####[facility] LABCLIA [id number] [place] [address] [place] Bilirubin.conjugated [Mass/Vol] 1.0 mg/dL High <0.3 [facility] Comment on above: Order Comment: Speci men Type: BLOOD SPECIMENOrdering Facility: [facility] Address: [address] [place] [address] Performed By: #### 2 4321-2, 72134-2, 2777-1 ####[facility] LABCLIA [id number] [place] [address] [place] Protein [Mass/Vol] 5.2 g/dL Low 6.3-8.0 [facility] Comment on above: Order Comment: Speci men Type: BLOOD SPECIMENOrdering Facility: [facility] Address: [address] [place] [address] Performed By: #### 2 4321-2, 54818-2, 2777-1 ####[facility] LABIA [id number] [place] [address] [place] NUTRITIONon 11-17-2024 NUTRITION Normal [facility] PSA/PROSTATE SPECIFIC ANTIGE N SCREENINGon 11-17-2024 Prostate specific Ag [Mass/Vol] 0.52 ng/mL Normal <2.60 [facility] Comment on above: Order Comment: Speci men Type: BLOOD SPECIMENOrdering Facility: [facility] Address: [address] [place] [address] Result Comment: Tota l PSA test methodology used is the Electrochemiluminescence Immunoassay by [employer]. Total PSA values by differing methodologies cannot be interchanged. Performed By: #### P SAS1 ####[facility] LABCLIA [id number] [place] [address] [place] PT panel Coag (PPP)on 2024 INR Coag (PPP) [Relative time] 2.0 {INR} High 0.9-1.3 [facility] Comment on above: Order Comment: Speci men Type: BLOOD SPECIMENOrdering Facility: [facility] Address: [address] [place] [address] Result Comment: Sarha min K Antagonist (VKA) Therapeutic Range: INR 2 to 3 (Target INR of 2.5)Note: For patients treated with VKA drugs, such as warfarin, the [place] [employer] 2012 Guideline recommends [...] al. Chest 2012, 141:7S-47SNishbethel RA, et al. [facility] 2017, 70: 252-289 Performed By: #### 3 255-7, 88442-0 ####[facility] LABIA [id number] [place] [address] [place] PT Coag (PPP) [Time] 20.6 s High 9.7-13.0 [facility] Comment on above: Order Comment: Speci men Type: BLOOD SPECIMENOrdering Facility: [facility] Address: [address] [place] [address] Performed By: #### 3 255-7, 04992-8 ####[facility] [id number] [place] [id number] [place] PTT, ANTICOAGULANT THERAPYon 11-17-2024 aPTT Coag (PPP) [Time] 41.6 s High 23.0-32.4 [facility] Comment on above: Order Comment: Speci men Type: BLOOD SPECIMENOrdering Facility: [facility] Address: [address] [place] [address] Performed By: #### P TTAC ####[facility] LABIA [id number] [place] [address] [place] Phosphate SerPl-mCncon 11-17 Phosphate [Mass/Vol] 1.9 mg/dL Low 2.7-4.8 [facility] Comment on above: Order Comment: Ezekiel ramirez Type: BLOOD SPECIMENOrdering Facility: [facility] Address: [address] [place] [address] Performed By: #### 2 4321-2, 71916-0, 2777-1 ####[facility] LABCLIA [id number] [place] [address] [place] THERAPY NTon 11-17-2024 THERAPY NT Normal [facility] aPTT PPPon 11-17-2024 aPTT Coag (PPP) [Time] s High 23.0-32.4 Cl [facility] Comment on above: Order Comment: Ezekiel ramirez Type: BLOOD SPECIMENOrdering Facility: [facility] Address: [address] [place] [address] Result Comment: Resu lt rechecked.Sample checked for clot. Performed By: #### 1 4979-9, PTTAC ####[facility] LABCLIA [id number] [place] [address] [place] ANES POSTPROC EVALon 025 ANES POSTPROC EVAL Normal [facility] ANES PRE-OPon 11-16-2024 ANES PRE-OP Normal [facility] Albumin Fld-ncon Albumin (Body fld) [Mass/Vol] 0.2 g/dL Normal See Comment [facility] Comment on above: Order Comment: Ezekiel ramirez Type: FLUID SPECIMENOrdering Facility: [facility] Address: [address] [place] [address] Result Comment: Body Fluid Albumin may be [...] document C49A. PAULETTE Diaz: Clinical Laboratory Standards [place]: 2007.2. Amy JACKSON. Serum to ascites albumin gradient. UpToDate. 2015. Accessed on November 15, 2015.This test was developed, and its performance characteristics determined by the [facility] Department of Pathology and Laboratory Medicine. It has not been cleared or approved by the FDA. The [facility] Department of Pathology and Laboratory Medicine is regulated under CLIA as qualified to perform high-complexity testing. This test is used for clinical purposes. It should not be regarded as investigational or for research. Performed By: #### 1 795-4, 2881-1, 1747-5 ####[facility] LABCLIA [id number] [place] [address] [place] Fluid Nom (Body fld) Ascites Fluid Normal [facility] Comment on above: Order Comment: Speci men Type: FLUID SPECIMENOrdering Facility: [facility] Address: [address] [place] [address] Performed By: #### 1 795-4, 2881-1, 17402-05 ####[facility] LABIA [id number] [address] [place] Amylase Fld-cCncon 5 Amylase (Body fld) [Catalytic activity/Vol] 17 U/L Normal See Comment [facility] Comment on above: Order Comment: Speci men Type: FLUID SPECIMENOrdering Facility: [facility] Address: [address] [place] [address] Result Comment: PLEU RAL FLUIDS:Amylase measurement in [...] document C49-A. PAULETTE Diaz: Clinical Laboratory Standards [place]; 2007.3. Kelby CONCEPCION, John BRAR, Star DJ. Use of cyst fluid CEA, CA19-9, and amylase for evaluation of pancreatic lesions. Clinical Biochemistry. 2009;42:7620-1547.This test was developed, and its performance characteristics determined by the [facility] Department of Pathology and Laboratory Medicine. It has not been cleared or approved by the FDA. The [facility] Department of Pathology and Laboratory Medicine is regulated under CLIA as qualified to perform high-complexity testing. This test is used for clinical purposes. It should not be regarded as investigational or for research. Performed By: #### 1 795-4, 2881-1, 1747-5 ####[facility] LABCLIA [id number] [place] [address] [place] BODY FLUID CELL COUNTon 11-02 Clarity (Unsp spec) Clear Normal Clear Jeremiah [facility] Comment on above: Order Comment: Speci men Type: FLUID SPECIMENOrdering Facility: [facility] Address: [address] [place] [address] Performed By: #### C CBF, [id number] ####[facility] LABCLIA [id number] [place] [address] [place] Color (Body fld) Yellow Normal Yellow [facility] Comment on above: Order Comment: Speci men Type: FLUID SPECIMENOrdering Facility: [facility] Address: [address] [place] [address] Performed By: #### C CBF, [id number] ####[facility] LABCLIA [id number] [facility] [address] [place] RBC Manual cnt (Body fld) [#/Vol] 3000 /uL High <2000 [facility] Comment on above: Order Comment: Speci men Type: FLUID SPECIMENOrdering Facility: [facility] Address: [address] [place] [address] Performed By: #### C CBF, [id number] ####[facility] LABCLIA [id number] [place] [address] [place] Specimen source Nom (Body fld) Ascites Fluid Normal [facility] Comment on above: Order Comment: Speci men Type: FLUID SPECIMENOrdering Facility: [facility] Address: [address] [place] [address] Performed By: #### C CBF, [id number] ####[facility] LABCLIA [id number] [place] [address] [place] WBC Manual cnt (Body fld) [#/Vol] 58 /uL Normal <1000 [facility] Comment on above: Order Comment: Speci men Type: FLUID SPECIMENOrdering Facility: [facility] Address: [address] [place] [address] Performed By: #### C CBF, [id number] ####[facility] LABCLIA [id number] [facility] [place] [id number] [place] Bacteria Fld Culton 11-17-19 25 Bacteria identified Cx Nom (Body fld) CULTURE, BODY FLD: No growth GRAM STAIN: No organisms seen Few Polymorphonuclear leukocytes Gram stain performed on cytospun specimen. Gram stain from primary specimen Normal [facility] Comment on above: Performed By: #### 6 35-3, 611-4 ####[facility] LABCLIA [id number] [address] [place] [address] [place] Bacteria Spec Anaerobe Culto n 11-16-2024 Bacteria identified Anaer cx Nom (Unsp spec) Negative Normal [facility] Comment on above: Performed By: #### 6 35-3, 611-4 ####[facility] LABCLIA [id number] [address] [place] [address] [place] Basic metabolic 2000 panelon 11-16-2024 Anion gap [Moles/Vol] 10 mmol/L Normal 8-15 [facility] Comment on above: Order Comment: Speci men Type: BLOOD SPECIMENOrdering Facility: [facility] Address: [address] [place] [address] Performed By: #### 2 4321-2, 61071-2, 2777-1 ####[facility] LABCLIA [id number] [place] [id number] [place] Calcium [Mass/Vol] 8.4 mg/dL Low 8.5-10.2 [facility] Comment on above: Order Comment: Speci men Type: BLOOD SPECIMENOrdering Facility: [facility] Address: [address] [place] [address] Performed By: #### 2 4321-2, 36591-2, 2777-1 ####[facility] LABCLIA [id number] [place] [id number] [place] Chloride [Moles/Vol] 102 mmol/L Normal 98-107 [facility] Comment on above: Order Comment: Speci men Type: BLOOD SPECIMENOrdering Facility: [facility] Address: [address] [place] [address] Performed By: #### 2 4321-2, 13342-0, 2777-1 ####[facility] LABCLIA [id number] [facility] [address] [place] [address] [place] CO2 [Moles/Vol] 18 mmol/L Low 22-30 [facility] Comment on above: Order Comment: Speci men Type: BLOOD SPECIMENOrdering Facility: [facility] Address: [address] [place] [address] Performed By: #### 2 4321-2, 46744-6, 2776-08 ####[facility] LABCLIA [id number] [address] [address] [place] Creatinine [Mass/Vol] 0.73 mg/dL Normal 0.73-1.22 [facility] Comment on above: Order Comment: Speci men Type: BLOOD SPECIMENOrdering Facility: [facility] Address: [address] [place] [address] Performed By: #### 2 4321-2, 24356-8, 2776-08 ####[facility] LABIA [id number] [address] [address] [place] Creatinine and Glomerular filtration rate.predicted panel (S/P/Bld) 105 mL/min/1.73m??? Normal >=60 [facility] Comment on above: Order Comment: Speci men Type: BLOOD SPECIMENOrdering Facility: [facility] Address: [address] [place] [address] Result Comment: Patric mated Glomerular Filtration Rate [...] actual GFR. Performed By: #### 2 4321-2, 13953-6, 2776-08 ####[facility] LABIA [id number] [address] [address] [place] Glucose [Mass/Vol] 181 mg/dL High 74-99 [facility] Comment on above: Order Comment: Speci men Type: BLOOD SPECIMENOrdering Facility: [facility] Address: [address] [place] [address] Result Comment: The [place] [employer] (ADA) provides guidance for cutoff [...] Standards of Medical Care in Diabetes 2016, [place] [employer]. Diabetes Care. 2016.39(Suppl 1). Performed By: #### 2 4321-2, 92212-6, 2777- ####[facility] [facility] LABIA [id number] [place] [address] [place] Potassium [Moles/Vol] 3.6 mmol/L Low 3.7-5.1 [facility] Comment on above: Order Comment: Speci men Type: BLOOD SPECIMENOrdering Facility: [facility] Address: [address] [place] [address] Performed By: #### 2 4321-2, 41796-3, 2776-08 ####[facility] LABIA [id number] [place] [address] [place] Sodium [Moles/Vol] 130 mmol/L Low 136-144 [facility] Comment on above: Order Comment: Speci men Type: BLOOD SPECIMENOrdering Facility: [facility] Address: [address] [place] [address] Performed By: #### 2 4321-2, 84302-5, 2777- ####[facility] LABIA [id number] [place] [id number] [place] Urea nitrogen [Mass/Vol] 9 mg/dL Normal 9-24 [facility] Comment on above: Order Comment: Speci men Type: BLOOD SPECIMENOrdering Facility: [facility] Address: [address] [place] [id number] Performed By: #### 2 4321-2, 54612-6, 2777-1 ####[facility] LABCLIA [id number] [place] [address] [place] CBC W Auto Differential pane l (Bld)on 11-16-2024 Basophils (Bld) [#/Vol] 0.05 10*3/uL Normal <0.11 [facility] Comment on above: Order Comment: Speci men Type: BLOOD SPECIMENOrdering Facility: [facility] Address: [address] [place] [address] Performed By: #### 5 7021-8 ####[facility] LABCLIA [id number] [place] [address] [place] Basophils/100 WBC (Bld) 0.8 % Normal [facility] Comment on above: Order Comment: Speci men Type: BLOOD SPECIMENOrdering Facility: [facility] Address: [address] [place] [address] Performed By: #### 5 7021-8 ####[facility] LABCLIA [id number] [place] [address] [place] Differential cell count method Nom (Bld) Auto Normal [facility] Comment on above: Order Comment: Speci men Type: BLOOD SPECIMENOrdering Facility: [facility] Address: [address] [place] [address] Performed By: #### 5 7021-8 ####[facility] LABCLIA [id number] [place] [id number] [place] Eosinophils (Bld) [#/Vol] 0.22 10*3/uL Normal <0.46 [facility] Comment on above: Order Comment: Speci men Type: BLOOD SPECIMENOrdering Facility: [facility] Address: [address] [place] [address] Performed By: #### 5 7021-8 ####[facility] LABCLIA [id number] [address], [place] [address] [place] Eosinophils/100 WBC (Bld) 3.6 % Normal [facility] Comment on above: Order Comment: Speci men Type: BLOOD SPECIMENOrdering Facility: [facility] Address: [address] [place] [address] Performed By: #### 5 7021-8 ####[facility] LABCLIA [id number] [address], [place] [address] [place] Erythrocyte distribution width (RBC) [Ratio] 16.7 % High 11.5-15.0 [facility] Comment on above: Order Comment: Speci men Type: BLOOD SPECIMENOrdering Facility: [facility] Address: [address] [place] [address] Performed By: #### 5 7021-8 ####[facility] LABCLIA [id number] [address], [place] [address] [place] Hematocrit (Bld) [Volume fraction] 24.0 % Low 39.0-51.0 [facility] Comment on above: Order Comment: Speci men Type: BLOOD SPECIMENOrdering Facility: [facility] Address: [address] [place] [address] Performed By: #### 5 7021-8 ####[facility] LABCLIA [id number] [address], [place] [address] [place] Hemoglobin (Bld) [Mass/Vol] 8.3 g/dL Low 13.0-17.0 [facility] Comment on above: Order Comment: Speci men Type: BLOOD SPECIMENOrdering Facility: [facility] Address: [address] [place] [address] Performed By: #### 5 7021-8 ####[facility] LABCLIA [id number] [address], [facility]95 [place] Immature granulocytes (Bld) [#/Vol] 0.05 10*3/uL Normal <0.10 [facility] Comment on above: Order Comment: Speci men Type: BLOOD SPECIMENOrdering Facility: [facility] Address: [address] [place] [address] Performed By: #### 5 7021-8 ####[facility] LABCLIA [id number] [address] [place] Immature granulocytes/100 WBC (Bld) 0.8 % Normal [facility] Comment on above: Order Comment: Speci men Type: BLOOD SPECIMENOrdering Facility: [facility] Address: [address] [place] [address] Performed By: #### 5 7021-8 ####[facility] LABCLIA [id number] [place] [address] [place] Lymphocytes (Bld) [#/Vol] 0.75 10*3/uL Low 1.00-4.00 [facility] Comment on above: Order Comment: Speci men Type: BLOOD SPECIMENOrdering Facility: [facility] Address: [address] [place] [address] Performed By: #### 5 7021-8 ####[facility] LABCLIA [id number] [place] [address] [place] Lymphocytes/100 WBC (Bld) 12.4 % Normal [facility] Comment on above: Order Comment: Speci men Type: BLOOD SPECIMENOrdering Facility: [facility] Address: [address] [place] [address] Performed By: #### 5 7021-8 ####[facility] LABCLIA [id number] [place] [id number] [place] MCH (RBC) [Entitic mass] 31.9 pg Normal 26.0-34.0 [facility] Comment on above: Order Comment: Speci men Type: BLOOD SPECIMENOrdering Facility: [facility] Address: [address] [place] [address] Performed By: #### 5 7021-8 ####[facility] LABCLIA [id number] [place] [address] [place] MCHC (RBC) [Mass/Vol] 34.6 g/dL Normal 30.5-36.0 [facility] Comment on above: Order Comment: Speci men Type: BLOOD SPECIMENOrdering Facility: [facility] Address: [address] [place] [address] Performed By: #### 5 7021-8 ####[facility] LABIA [id number] [place] [address] [place] MCV (RBC) [Entitic vol] 92.3 fL Normal 80.0-100.0 [facility] Comment on above: Order Comment: Speci men Type: BLOOD SPECIMENOrdering Facility: [facility] Address: [address] [place] [address] Performed By: #### 5 7021-8 ####[facility] LABIA [id number] [place] [address] [place] Monocytes (Bld) [#/Vol] 0.68 10*3/uL Normal <0.87 [facility] Comment on above: Order Comment: Speci men Type: BLOOD SPECIMENOrdering Facility: [facility] Address: [address] [place] [address] Performed By: #### 5 7021-8 ####[facility] LABIA [id number] [place] [address] [place] Monocytes/100 WBC (Bld) 11.3 % Normal [facility] Comment on above: Order Comment: Speci men Type: BLOOD SPECIMENOrdering Facility: [facility] Address: [address] [place] [address] Performed By: #### 5 7021-8 ####[facility] LABIA [id number] [place] [address] [place] Neutrophils (Bld) [#/Vol] 4.28 10*3/uL Normal 1.45-7.50 [facility] Comment on above: Order Comment: Speci men Type: BLOOD SPECIMENOrdering Facility: [facility] Address: [address] [place] [address] Performed By: #### 5 7021-8 ####[facility] LABIA [id number] [place] [address] [place] Neutrophils/100 WBC (Bld) 71.1 % Normal [facility] Comment on above: Order Comment: Speci men Type: BLOOD SPECIMENOrdering Facility: [facility] Address: [address] [place] [address] Performed By: #### 5 7021-8 ####[facility] LABIA [id number] [place] [address] [place] Nucleated RBC (Bld) [#/Vol] 10*3/uL Normal <0.01 [facility] Comment on above: Order Comment: Speci men Type: BLOOD SPECIMENOrdering Facility: [facility] Address: [address] [place] [address] Performed By: #### 5 7021-8 ####[facility] LABIA [id number] [place] [address] [place] Nucleated RBC/100 WBC (Bld) [Ratio] 0.0 /100 WBC Normal [facility] Comment on above: Order Comment: Speci men Type: BLOOD SPECIMENOrdering Facility: [facility] Address: [address] [place] [address] Performed By: #### 5 7021-8 ####[facility] LABIA [id number] [place] [address] [place] Platelet mean volume (Bld) [Entitic vol] 11.8 fL Normal 9.0-12.7 [facility] Comment on above: Order Comment: Speci men Type: BLOOD SPECIMENOrdering Facility: [facility] Address: [address] [place] [address] Performed By: #### 5 7021-8 ####[facility] LABCLIA [id number] [place] [address] [place] Platelets (Bld) [#/Vol] 59 10*3/uL Low 150-400 [facility] Comment on above: Order Comment: Speci men Type: BLOOD SPECIMENOrdering Facility: [facility] Address: [address] [place] [address] Result Comment: No c lot detected.Results checked and verified. Performed By: #### 5 7021-8 ####[facility] LABCLIA [id number] [place] [address] [place] RBC (Bld) [#/Vol] 2.60 10*6/uL Low 4.20-6.00 [facility] Comment on above: Order Comment: Speci men Type: BLOOD SPECIMENOrdering Facility: [facility] Address: [address] [place] [address] Performed By: #### 5 7021-8 ####[facility] LABCLIA [id number] [place] [address] [place] WBC (Bld) [#/Vol] 6.03 10*3/uL Normal 3.70-11.00 [facility] Comment on above: Order Comment: Speci men Type: BLOOD SPECIMENOrdering Facility: [facility] Address: [address] [place] [address] Performed By: #### 5 7021-8 ####[facility] LABCLIA [id number] [place] [id number] [place] CONSULT PROGon 11-16-2024 CONSULT PROG Normal [facility] CYTOLOGY NON-GYNon 5 AP DISCLAIMER Normal [facility] Comment on above: Order Comment: Speci men Type: FLUID SPECIMENOrdering Facility: [facility] Address: [address] [place] [address] Result Comment: Shellie pugh Developed Test (LDT) Disclaimer:Performance characteristics of immunohistochemical, immunofluorescent, and chromogenic in-situ hybridization tests have been determined by the performing laboratory within [facility]'s Thai [facility] Pathology and Laboratory Medicine Department ([facility], [facility], [facility], [facility], [facility], [facility], or [facility]) in a manner consistent with CLIA requirements. One or more of these tests may not have been cleared or approved by the FDA. [facility] is regulated under CLIA as qualified to perform high-complexity testing. These tests are used for clinical purposes. These should not be regarded as investigational or for research. Positive and negative controls stain appropriately. Performed By: #### C YTONON ####[facility] LABIA [id number] [place] [address] [place] CASE REPORT Normal [facility] Comment on above: Order Comment: Speci men Type: FLUID SPECIMENOrdering Facility: [facility] Address: [address] [place] [address] Result Comment: [facility] Cytology Report Case: [id number] Provider: Young Cruz MD Collected: 11/16/2024 08:42 AMOrdering Location: [place] [address] Received: 11/16/2024 06:20 PMPathologist: Stefani Mcneal MDSpecimen: Peritoneal Fluid. Performed By: #### C YTONON ####[facility] LABIA [id number] [place] [address] [place] CLINICAL HISTORY Cirrhosis with ascites Normal [facility] Comment on above: Order Comment: Speci men Type: FLUID SPECIMENOrdering Facility: [facility] Address: [address] [place] [address] Performed By: #### C YTONON ####[facility] LABIA [id number] [address] [place] FINAL DIAGNOSIS Normal [facility] Comment on above: Order Comment: Speci men Type: FLUID SPECIMENOrdering Facility: [facility] Address: [address] [place] [address] Result Comment: A - Peritoneal Fluid Negative for malignant cells. Chronic inflammation.The following cell blocks were associated with this case:A1 Cell Block, Alcohol Fixed at 1223 EDT Performed By: #### C YTONON ####[facility] LABCLIA [id number] [place] [address] [place] FINAL PERFORMING LAB Normal [facility] Comment on above: Order Comment: Speci men Type: FLUID SPECIMENOrdering Facility: [facility] Address: [address] [place] [address] Result Comment: Tech nical component, chocolate molder screening performed at: [facility], [address] [place] [address] CLIA: [id number] interpretation performed at: [facility], [address] [place] [address] CLIA# [id number] Director: Titi Voss MD Performed By: #### C YTONON ####[facility] LABCLIA [id number] [place] [address] [place] GROSS DESCRIPTION Normal [facility] Comment on above: Order Comment: Speci men Type: FLUID SPECIMENOrdering Facility: [facility] Address: [address] [place] [address] Result Comment: A. P eritoneal Fluid.1450 cc opaque red fluid . ThinPrep and Cell Block prepared. Performed By: #### C YTONON ####[facility] LABCLIA [id number] [place] [address] [place] ECG COMPLETEon 11-16-2024 ECG COMPLETE Normal [facility] Fibrinogen PPP-mCncon 2024 Fibrinogen Coag (PPP) [Mass/Vol] 127 mg/dL Low 200-400 [facility] Comment on above: Order Comment: Speci men Type: BLOOD SPECIMENOrdering Facility: [facility] Address: [address] [place] [address] Performed By: #### 3 255-7, 36776-9 ####[facility] LABIA [id number] [place] [id number] [place] Hepatic function 2000 panelo n 11-16-2024 Albumin [Mass/Vol] 2.8 g/dL Low 3.9-4.9 [facility] Comment on above: Order Comment: Speci men Type: BLOOD SPECIMENOrdering Facility: [facility] Address: [address] [place] [address] Performed By: #### 2 4321-2, 87051-0, 2777-1 ####[facility] LABIA [id number] [place] [address] [place] ALP [Catalytic activity/Vol] 295 U/L High 38-113 [facility] Comment on above: Order Comment: Speci men Type: BLOOD SPECIMENOrdering Facility: [facility] Address: [address] [place] [address] Performed By: #### 2 4321-2, 26840-7, 2777-1 ####[facility] LABIA [id number] [address] [place] ALT [Catalytic activity/Vol] 38 U/L Normal 10-54 [facility] Comment on above: Order Comment: Speci men Type: BLOOD SPECIMENOrdering Facility: [facility] Address: [address] [place] [address] Performed By: #### 2 4321-2, 30939-5, 2777-1 ####[facility] LABIA [id number] [place] [id number] [place] AST [Catalytic activity/Vol] 88 U/L High 14-40 [facility] Comment on above: Order Comment: Speci men Type: BLOOD SPECIMENOrdering Facility: [facility] Address: [address] [place] [address] Performed By: #### 2 4321-2, 48263-3, 2776- ####[facility] LABCLIA [id number] [address] [address] [place] Bilirubin [Mass/Vol] 1.8 mg/dL High 0.2-1.3 [facility] Comment on above: Order Comment: Speci men Type: BLOOD SPECIMENOrdering Facility: [facility] Address: [address] [place] [address] Performed By: #### 2 4321-2, 04087-6, 2776- ####[facility] LABCLIA [id number] [place] [address] [place] Bilirubin.conjugated [Mass/Vol] 0.9 mg/dL High <0.3 [facility] Comment on above: Order Comment: Speci men Type: BLOOD SPECIMENOrdering Facility: [facility] Address: [address] [place] [address] Performed By: #### 2 4321-2, 14502-7, 2776-08 ####[facility] LABCLIA [id number] [place] [id number] [place] Protein [Mass/Vol] 5.5 g/dL Low 6.3-8.0 [facility] Comment on above: Order Comment: Speci men Type: BLOOD SPECIMENOrdering Facility: [facility] Address: [address] [place], [place] [address] Performed By: #### 2 4321-2, 93920-4, 2776-08 ####[facility] LABCLIA [id number] [address] [address] [place] MANUAL DIFFERENTIAL, BODY FL UIDon 11-16-2024 DIF TTL, BODY FLUID 100 cells counted Normal [facility] Comment on above: Order Comment: Speci men Type: FLUID SPECIMENOrdering Facility: [facility] Address: [address] [place] [address] Performed By: #### C CBF, [id number] ####[facility] LABCLIA [id number] [facility] [id number], [place] [address] [place] LYMPH%, BF 47 % High 18-36 [facility] Comment on above: Order Comment: Speci men Type: FLUID SPECIMENOrdering Facility: [facility] Address: [address] [place] [address] Performed By: #### C CBF, [id number] ####[facility] LABCLIA [id number] [facility]ENT[facility] [address] [place] [address] [place] MACRO%, BF 6 % Low 64-80 [facility] Comment on above: Order Comment: Speci men Type: FLUID SPECIMENOrdering Facility: [facility] Address: [address] [place] [address] Performed By: #### C CBF, [id number] ####[facility] LABCLIA [id number] [address] [place] [address] [place] MESO %, BF 25 % High 0-2 [facility] Comment on above: Order Comment: Speci men Type: FLUID SPECIMENOrdering Facility: [facility] Address: [address] [place] [address] Performed By: #### C CBF, [id number] ####[facility] LABCLIA [id number] [facility] [address] [place] [address] [place] MONO% BF 8 % Normal [facility] Comment on above: Order Comment: Speci men Type: FLUID SPECIMENOrdering Facility: [facility] Address: [address] [place] [address] Performed By: #### C CBF, [id number] ####[facility] LABCLIA [id number] [facility] [address], [facility] [place] NEUT%, BF 14 % High 0-1 [facility] Comment on above: Order Comment: Speci men Type: FLUID SPECIMENOrdering Facility: [facility] Address: [address] [place] [address] Performed By: #### C [facility], [id number] ####[facility] [id number] [place] [address] [place] NURSING PROGon 11-16-2024 NURSING PROG Normal [facility] NURSING PROG Normal [facility] PT panel Coag (PPP)on 2024 INR Coag (PPP) [Relative time] 2.1 {INR} High 0.9-1.3 [facility] Comment on above: Order Comment: Speci james Type: BLOOD SPECIMENOrdering Facility: [facility] Address: [address] [place] [address] Result Comment: Sarah min K Antagonist (VKA) Therapeutic Range: INR 2 to 3 (Target INR of 2.5)Note: For patients treated with VKA drugs, such as warfarin, the [employer] 2012 Guideline recommends [...] al. Chest 2012, 141:7S-47SNishbethel RA, et al. [facility] 2017, 70: 252-289 Performed By: #### 3 4528-0 ####[facility] LABIA [id number] [place] [id number] [place] PT Coag (PPP) [Time] 21.5 s High 9.7-13.0 [facility] Comment on above: Order Comment: Ezekiel men Type: BLOOD SPECIMENOrdering Facility: [facility] Address: [address] [place] [address] Performed By: #### 3 4528-0 ####[facility] LABCLIA [id number] [place] [id number] [place] INR Coag (PPP) [Relative time] 2.0 {INR} High 0.9-1.3 [facility] Comment on above: Order Comment: Speci men Type: BLOOD SPECIMENOrdering Facility: [facility] Address: [address] [place] [address] Result Comment: Asrah min K Antagonist (VKA) Therapeutic Range: INR 2 to 3 (Target INR of 2.5)Note: For patients treated with VKA drugs, such as warfarin, the [employer] 2012 Guideline recommends [...] al. Chest 2012, 141:7S-47SNishimura RA, et al. [facility] 2017, 70: 252-289 Performed By: #### 3 255-7, 89284-5 ####[facility] LABIA [id number] [place] [id number] [place] PT Coag (PPP) [Time] 20.3 s High 9.7-13.0 [facility] Comment on above: Order Comment: Speci men Type: BLOOD SPECIMENOrdering Facility: [facility] Address: [address] [place] [address] Performed By: #### 3 255-7, 52345-3 ####[facility] LABIA [id number] [place] [id number] [place] Phosphate SerPl-mCncon 04-15 -2025 Phosphate [Mass/Vol] 2.3 mg/dL Low 2.7-4.8 [facility] Comment on above: Order Comment: Ezekiel ramirez Type: BLOOD SPECIMENOrdering Facility: [facility] Address: [address] [place] [address] Performed By: #### 2 4321-2, 75668-8, 2777-1 ####[facility] LABCLIA [id number] [place] [address] [place] Prot Fld-mCncon 11-16-2024 Protein (Body fld) [Mass/Vol] 0.5 g/dL Normal See Comment [facility] Comment on above: Order Comment: Ezekiel ramirez Type: FLUID SPECIMENOrdering Facility: [facility] Address: [address] [place] [address] Result Comment: Sero us fluids: Effusions are [...] document C49A. PAULETTE Diaz: Clinical Laboratory Standards [place]: 2007. Performed By: #### 1 795-4, 2881-1, 1747-5 ####[facility] LABCLIA [id number] [place] [id number] [place] THERAPY NTon 11-16-2024 THERAPY NT Normal [facility] THERAPY NT Normal [facility] BLOOD TB SCREENon 11-15-2024 M. tuberculosis tuberculin stim IFN-g Ql (Bld) Indeterminate Normal [facility] Comment on above: Order Comment: Ezekiel ramirez Type: BLOOD SPECIMENOrdering Facility: [facility] Address: [address] [place] [address] Performed By: #### I NFTBP ####[facility] LABCLIA [id number] [place] [address] [place] MITOGEN MINUS NIL 0.25 IU/mL Low >=0.50 [facility] Comment on above: Order Comment: Speci men Type: BLOOD SPECIMENOrdering Facility: [facility] Address: [address] [place] [address] Performed By: #### I NFTBP ####[facility] LABCLIA [id number] [place] [address] [place] TB GAMMA INTERPRETATION Normal [facility] Comment on above: Order Comment: Speci men Type: BLOOD SPECIMENOrdering Facility: [facility] Address: [address] [place] [address] Performed By: #### I NFTBP ####[facility] LABCLIA [id number] [place] [address] [place] TB NIL 0.01 IU/mL Normal <=8.00 [facility] Comment on above: Order Comment: Speci men Type: BLOOD SPECIMENOrdering Facility: [facility] Address: [address] [place] [address] Performed By: #### I NFTBP ####[facility] LABCLIA [id number] [place] [address] [place] TB1 AG MINUS NIL 0.00 IU/mL Normal <0.35 [facility] Comment on above: Order Comment: Speci men Type: BLOOD SPECIMENOrdering Facility: [facility] Address: [address] [place] [address] Performed By: #### I NFTBP ####[facility] LABCLIA [id number] [place] [address] [place] TB2 AG MINUS NIL 0.01 IU/mL Normal <0.35 [facility] Comment on above: Order Comment: Speci men Type: BLOOD SPECIMENOrdering Facility: [facility] Address: [address] [place] [address] Performed By: #### I NFTBP ####[facility] LABCLIA [id number] [place] [address] [place] CASE MANAGEMon 11-15-2024 CASE MANAGEM Normal [facility] CASE MANAGEM Normal [facility] CBC W Auto Differential pane l (Bld)on 11-15-2024 Basophils (Bld) [#/Vol] 0.05 10*3/uL Normal <0.11 [facility] Comment on above: Order Comment: Speci men Type: BLOOD SPECIMENOrdering Facility: [facility] Address: [address] [place] [address] Performed By: #### 5 7021-8 ####[facility] LABCLIA [id number] [place] [address] [place] Basophils/100 WBC (Bld) 0.8 % Normal [facility] Comment on above: Order Comment: Speci men Type: BLOOD SPECIMENOrdering Facility: [facility] Address: [address] [place] [address] Performed By: #### 5 7021-8 ####[facility] LABCLIA [id number] [place] [address] [place] Differential cell count method Nom (Bld) Auto Normal [facility] Comment on above: Order Comment: Speci men Type: BLOOD SPECIMENOrdering Facility: [facility] Address: [address] [place] [address] Performed By: #### 5 7021-8 ####[facility] LABCLIA [id number] [place] [address] [place] Eosinophils (Bld) [#/Vol] 0.28 10*3/uL Normal <0.46 [facility] Comment on above: Order Comment: Speci men Type: BLOOD SPECIMENOrdering Facility: [facility] Address: [address] [place] [address] Performed By: #### 5 7021-8 ####[facility] LABCLIA [id number] [place] [address] [place] Eosinophils/100 WBC (Bld) 4.6 % Normal [facility] Comment on above: Order Comment: Speci men Type: BLOOD SPECIMENOrdering Facility: [facility] Address: [address] [place] [address] Performed By: #### 5 7021-8 ####[facility] LABCLIA [id number] [place] [address] [place] Erythrocyte distribution width (RBC) [Ratio] 16.8 % High 11.5-15.0 [facility] Comment on above: Order Comment: Speci men Type: BLOOD SPECIMENOrdering Facility: [facility] Address: [address] [place] [address] Performed By: #### 5 7021-8 ####[facility] LABIA [id number] [place] [address] [place] Hematocrit (Bld) [Volume fraction] 22.9 % Low 39.0-51.0 [facility] Comment on above: Order Comment: Speci men Type: BLOOD SPECIMENOrdering Facility: [facility] Address: [address] [place] [address] Performed By: #### 5 7021-8 ####[facility] LABCLIA [id number] [place] [address] [place] Hemoglobin (Bld) [Mass/Vol] 7.6 g/dL Low 13.0-17.0 [facility] Comment on above: Order Comment: Speci men Type: BLOOD SPECIMENOrdering Facility: [facility] Address: [address] [place] [address] Performed By: #### 5 7021-8 ####[facility] LABCLIA [id number] [place] [address] [place] Immature granulocytes (Bld) [#/Vol] 0.03 10*3/uL Normal <0.10 [facility] Comment on above: Order Comment: Speci men Type: BLOOD SPECIMENOrdering Facility: [facility] Address: [address] [place] [address] Performed By: #### 5 7021-8 ####[facility] LABCLIA [id number] [place] [address] [place] Immature granulocytes/100 WBC (Bld) 0.5 % Normal [facility] Comment on above: Order Comment: Speci men Type: BLOOD SPECIMENOrdering Facility: [facility] Address: [address] [place] [address] Performed By: #### 5 7021-8 ####[facility] LABCLIA [id number] [place] [address] [place] Lymphocytes (Bld) [#/Vol] 0.70 10*3/uL Low 1.00-4.00 [facility] Comment on above: Order Comment: Speci men Type: BLOOD SPECIMENOrdering Facility: [facility] Address: [address] [place] [address] Performed By: #### 5 7021-8 ####[facility] LABCLIA [id number] [address] [place] Lymphocytes/100 WBC (Bld) 11.5 % Normal [facility] Comment on above: Order Comment: Speci men Type: BLOOD SPECIMENOrdering Facility: [facility] Address: [address] [place] [address] Performed By: #### 5 7021-8 ####[facility] LABCLIA [id number] [place] [address] [place] MCH (RBC) [Entitic mass] 30.6 pg Normal 26.0-34.0 [facility] Comment on above: Order Comment: Speci men Type: BLOOD SPECIMENOrdering Facility: [facility] Address: [address] [place] [address] Performed By: #### 5 7021-8 ####[facility] LABCLIA [id number] [place] [address] [place] MCHC (RBC) [Mass/Vol] 33.2 g/dL Normal 30.5-36.0 [facility] Comment on above: Order Comment: Speci men Type: BLOOD SPECIMENOrdering Facility: [facility] Address: [address] [place] [address] Performed By: #### 5 7021-8 ####[facility] LABCLIA [id number] [place] [address] [place] MCV (RBC) [Entitic vol] 92.3 fL Normal 80.0-100.0 [facility] Comment on above: Order Comment: Speci men Type: BLOOD SPECIMENOrdering Facility: [facility] Address: [address] [place] [address] Performed By: #### 5 7021-8 ####[facility] LABIA [id number] [place] [address] [place] Monocytes (Bld) [#/Vol] 0.73 10*3/uL Normal <0.87 [facility] Comment on above: Order Comment: Speci men Type: BLOOD SPECIMENOrdering Facility: [facility] Address: [address] [place] [address] Performed By: #### 5 7021-8 ####[facility] LABCLIA [id number] [place] [address] [place] Monocytes/100 WBC (Bld) 12.0 % Normal [facility] Comment on above: Order Comment: Speci men Type: BLOOD SPECIMENOrdering Facility: [facility] Address: [address] [place] [address] Performed By: #### 5 7021-8 ####[facility] LABCLIA [id number] [place] [address] [place] Neutrophils (Bld) [#/Vol] 4.30 10*3/uL Normal 1.45-7.50 [facility] Comment on above: Order Comment: Speci men Type: BLOOD SPECIMENOrdering Facility: [facility] Address: [address] [place] [address] Performed By: #### 5 7021-8 ####[facility] LABCLIA [id number] [place] [address] [place] Neutrophils/100 WBC (Bld) 70.6 % Normal [facility] Comment on above: Order Comment: Speci men Type: BLOOD SPECIMENOrdering Facility: [facility] Address: [address] [place] [address] Performed By: #### 5 7021-8 ####[facility] LABCLIA [id number] [place] [address] [place] Nucleated RBC (Bld) [#/Vol] 10*3/uL Normal <0.01 [facility] Comment on above: Order Comment: Speci men Type: BLOOD SPECIMENOrdering Facility: [facility] Address: [address] [place] [address] Performed By: #### 5 7021-8 ####[facility] LABCLIA [id number] [place] [address] [place] Nucleated RBC/100 WBC (Bld) [Ratio] 0.0 /100 WBC Normal [facility] Comment on above: Order Comment: Speci men Type: BLOOD SPECIMENOrdering Facility: [facility] Address: [address] [place] [address] Performed By: #### 5 7021-8 ####[facility] LABCLIA [id number] [place] [id number] [place] Platelet mean volume (Bld) [Entitic vol] 12.2 fL Normal 9.0-12.7 [facility] Comment on above: Order Comment: Speci men Type: BLOOD SPECIMENOrdering Facility: [facility] Address: [address] [place] [address] Performed By: #### 5 7021-8 ####[facility] LABCLIA [id number] [place] [id number] [place] Platelets (Bld) [#/Vol] 53 10*3/uL Low 150-400 [facility] Comment on above: Order Comment: Speci men Type: BLOOD SPECIMENOrdering Facility: [facility] Address: [address] [place] [address] Performed By: #### 5 7021-8 ####[facility] LABIA [id number] [place] [address] [place] RBC (Bld) [#/Vol] 2.48 10*6/uL Low 4.20-6.00 [facility] Comment on above: Order Comment: Speci men Type: BLOOD SPECIMENOrdering Facility: [facility] Address: [address] [place] [address] Performed By: #### 5 7021-8 ####[facility] LABIA [id number] [place] [address] [place] WBC (Bld) [#/Vol] 6.09 10*3/uL Normal 3.70-11.00 [facility] Comment on above: Order Comment: Speci men Type: BLOOD SPECIMENOrdering Facility: [facility] Address: [address] [place] [address] Performed By: #### 5 7021-8 ####[facility] LABIA [id number] [place] [id number] [place] CNOVon 11-15-2024 CNOV Normal [facility] CONSULTon 11-15-2024 CONSULT Normal [facility] CONSULT PROGon 11-15-2024 CONSULT PROG Normal [facility] Fibrinogen PPP-mCncon 2024 Fibrinogen Coag (PPP) [Mass/Vol] 123 mg/dL Low 200-400 [facility] Comment on above: Order Comment: Speci men Type: BLOOD SPECIMENOrdering Facility: [facility] Address: [address] [place] [address] Performed By: #### 3 255-7, 70780-8 ####[facility] LABCLIA [id number] [address], [place] [address] [place] Hepatic function 2000 panelo n 11-15-2024 Albumin [Mass/Vol] 2.8 g/dL Low 3.9-4.9 [facility] Comment on above: Order Comment: Speci men Type: BLOOD SPECIMENOrdering Facility: [facility] Address: [address] [place] [address] Performed By: #### 2 4325-3, 64866-1 ####[facility] LABCLIA [id number] [address], [place] [address] [place] ALP [Catalytic activity/Vol] 277 U/L High 38-113 [facility] Comment on above: Order Comment: Speci men Type: BLOOD SPECIMENOrdering Facility: [facility] Address: [address] [place] [address] Performed By: #### 2 4325-3, 08139-3 ####[facility] LABCLIA [id number] [facility] [address], [place] [address] [place] ALT [Catalytic activity/Vol] 36 U/L Normal 10-54 [facility] Comment on above: Order Comment: Speci men Type: BLOOD SPECIMENOrdering Facility: [facility] Address: [address] [place] [address] Performed By: #### 2 4325-3, 50603-0 ####[facility] LABCLIA [id number] [facility] [address] [place] [address] [place] AST [Catalytic activity/Vol] 87 U/L High 14-40 [facility] Comment on above: Order Comment: Speci men Type: BLOOD SPECIMENOrdering Facility: [facility] Address: [address] [place] [address] Performed By: #### 2 4325-3, 60278-7 ####[facility] LABCLIA [id number] [place] [id number] [place] Bilirubin [Mass/Vol] 1.6 mg/dL High 0.2-1.3 [facility] Comment on above: Order Comment: Speci men Type: BLOOD SPECIMENOrdering Facility: [facility] Address: [address] [place] [address] Performed By: #### 2 4325-3, 23579-0 ####[facility] LABCLIA [id number] [place] [address] [place] Bilirubin.conjugated [Mass/Vol] 0.9 mg/dL High <0.3 [facility] Comment on above: Order Comment: Speci men Type: BLOOD SPECIMENOrdering Facility: [facility] Address: [address] [place] [address] Performed By: #### 2 4325-3, 96423-5 ####[facility] LABIA [id number] [place] [address] [place] Protein [Mass/Vol] 5.4 g/dL Low 6.3-8.0 [facility] Comment on above: Order Comment: Speci men Type: BLOOD SPECIMENOrdering Facility: [facility] Address: [address] [place] [address] Performed By: #### 2 4325-3, 48757-8 ####[facility] LABIA [id number] [place] [id number] [place] PT panel Coag (PPP)on 2024 INR Coag (PPP) [Relative time] 1.8 {INR} High 0.9-1.3 [facility] Comment on above: Order Comment: Speci men Type: BLOOD SPECIMENOrdering Facility: [facility] Address: [address] [place] [address] Result Comment: Sarah min K Antagonist (VKA) Therapeutic Range: INR 2 to 3 (Target INR of 2.5)Note: For patients treated with VKA drugs, such as warfarin, the [place] [employer] 2012 Guideline recommends [...] al. Chest 2012, 141:7S-47SNishbethel RA, et al. [facility] 2017, 70: 252-289 Performed By: #### 3 255-7, 09540-4 ####[facility] LABCLIA [id number] [place] [address] [place] PT Coag (PPP) [Time] 18.9 s High 9.7-13.0 [facility] Comment on above: Order Comment: Spechelder ramirez Type: BLOOD SPECIMENOrdering Facility: [facility] Address: [address] [place] [address] Performed By: #### 3 255-7, 58394-7 ####[facility] LABCLIA [id number] [place] [id number] [place] Renal function 2000 panelon 11-15-2024 Albumin [Mass/Vol] 2.9 g/dL Low 3.9-4.9 [facility] Comment on above: Order Comment: Ezekiel ramirez Type: BLOOD SPECIMENOrdering Facility: [facility] Address: [address] [place] [address] Performed By: #### 2 4325-3, 28652-1 ####[facility] LABCLIA [id number] [facility] [address] [address] [place] Anion gap [Moles/Vol] 15 mmol/L Normal 8-15 [facility] Comment on above: Order Comment: Speci men Type: BLOOD SPECIMENOrdering Facility: [facility] Address: [address] [place], [place] [address] Performed By: #### 2 4325-3, 57821-0 ####[facility] LABCLIA [id number] [facility] [address] [address] [place] Calcium [Mass/Vol] 8.4 mg/dL Low 8.5-10.2 [facility] Comment on above: Order Comment: Speci men Type: BLOOD SPECIMENOrdering Facility: [facility] Address: [address] [place], [place] [address] Performed By: #### 2 4325-3, 77804-9 ####[facility] LABCLIA [id number] [place] [id number] [place] Chloride [Moles/Vol] 99 mmol/L Normal 98-107 [facility] Comment on above: Order Comment: Speci men Type: BLOOD SPECIMENOrdering Facility: [facility] Address: [address] [place], [place] [address] Performed By: #### 2 4325-3, 75189-5 ####[facility] LABCLIA [id number] [place] [id number] [place] CO2 [Moles/Vol] 14 mmol/L Low 22-30 [facility] Comment on above: Order Comment: Speci men Type: BLOOD SPECIMENOrdering Facility: [facility] Address: [address] [place], [place] [address] Performed By: #### 2 4325-3, 55654-3 ####[facility] LABCLIA [id number] [address] [address] [place] Creatinine [Mass/Vol] 0.80 mg/dL Normal 0.73-1.22 [facility] Comment on above: Order Comment: Ezekiel ramirez Type: BLOOD SPECIMENOrdering Facility: [facility] Address: [address] [place] [address] Performed By: #### 2 4325-3, 56380-8 ####[facility] LABCLIA [id number] [place] [address] [place] Creatinine and Glomerular filtration rate.predicted panel (S/P/Bld) 103 mL/min/1.73m??? Normal >=60 [facility] Comment on above: Order Comment: Ezekiel ramirez Type: BLOOD SPECIMENOrdering Facility: [facility] Address: [address] [place] [address] Result Comment: Patric mated Glomerular Filtration Rate [...] actual GFR. Performed By: #### 2 4325-3, 46908-9 ####[facility] LABCLIA [id number] [place] [address] [place] Glucose [Mass/Vol] 272 mg/dL High 74-99 [facility] Comment on above: Order Comment: Ezekiel ramirez Type: BLOOD SPECIMENOrdering Facility: [facility] Address: [address] [place] [address] Result Comment: The [place] [employer] (ADA) provides guidance for cutoff [...] Standards of Medical Care in Diabetes 2016, [place] [employer]. Diabetes Care. 2016.39(Suppl 1). Performed By: #### 2 4325-3, 23064-2 ####[facility] LABCLIA [id number] [address] [address] [place] Phosphate [Mass/Vol] 2.2 mg/dL Low 2.7-4.8 [facility] Comment on above: Order Comment: Speci men Type: BLOOD SPECIMENOrdering Facility: [facility] Address: [address] [place], [place] [address] Performed By: #### 2 4325-3, 58588-9 ####[facility] LABCLIA [id number] [address] [address] [place] Potassium [Moles/Vol] 3.8 mmol/L Normal 3.7-5.1 [facility] Comment on above: Order Comment: Speci men Type: BLOOD SPECIMENOrdering Facility: [facility] Address: [address] [place] [id number] Performed By: #### 2 4325-3, 12117-6 ####[facility] LABIA [id number] [address] [address] [place] Sodium [Moles/Vol] 128 mmol/L Low 136-144 [facility] Comment on above: Order Comment: Speci men Type: BLOOD SPECIMENOrdering Facility: [facility] Address: [address] [place] [address] Performed By: #### 2 4325-3, 32585-3 ####[facility] LABCLIA [id number] [address] [address] [place] Urea nitrogen [Mass/Vol] 11 mg/dL Normal 9-24 [facility] Comment on above: Order Comment: Speci men Type: BLOOD SPECIMENOrdering Facility: [facility] Address: [address] [place] [address] Performed By: #### 2 4325-3, 42287-2 ####[facility] LABCLIA [id number] [place] [address] [place] SEPSIS LACTATEon 11-15-2024 Lactate [Moles/Vol] 3.2 mmol/L High <=2.0 [facility] Comment on above: Order Comment: Speci men Type: BLOOD SPECIMENOrdering Facility: [facility] Address: [address] [place] [address] Performed By: #### S LACT ####[facility] LABCLIA [id number] [place] [address] [place] SOCIAL WORKon 11-15-2024 SOCIAL WORK Normal [facility] THERAPY NTon 11-15-2024 THERAPY NT Normal [facility] THERAPY NT Normal [facility] TYPE + SCREENon 11-15-2024 ABO O Normal [facility] Comment on above: Order Comment: Speci men Type: BLOOD SPECIMENOrdering Facility: [facility] Address: [address] [place] [address] Performed By: #### T SCR ####[facility] BLOOD BANKCLIA [id number] [place] [address] [place] Rh Nom (Bld) Positive Normal [facility] Comment on above: Order Comment: Speci men Type: BLOOD SPECIMENOrdering Facility: [facility] Address: [address] [place] [address] Performed By: #### T SCR ####[facility] BLOOD BANKCLIA [id number] [place] [address] [place] TYPE AND SCREEN EXPIRATION 11/18/2024 23:59 Normal [facility] Comment on above: Order Comment: Speci men Type: BLOOD SPECIMENOrdering Facility: [facility] Address: [address] [place] [address] Performed By: #### T SCR ####[facility] BLOOD BANKCLIA [id number] [address] [address] [place] US ASCITES SURVEYon 11-16-19 US ASCITES SURVEY Normal [facility] Basic metabolic 2000 panelon 11-14-2024 Anion gap [Moles/Vol] 11 mmol/L Normal 8-15 [facility] Comment on above: Order Comment: Speci men Type: BLOOD SPECIMENOrdering Facility: [facility] Address: [address] [place] [address] Performed By: #### 2 4321-2, 06265-3, 2776-08, ####[facility] LABCLIA [id number] [place] [id number] [place] Calcium [Mass/Vol] 8.9 mg/dL Normal 8.5-10.2 [facility] Comment on above: Order Comment: Speci men Type: BLOOD SPECIMENOrdering Facility: [facility] Address: [address] [place] [address] Performed By: #### 2 4321-2, 79387-7, 2776-08, ####[facility] LABIA [id number] [place] [id number] [place] Chloride [Moles/Vol] 99 mmol/L Normal 98-107 [facility] Comment on above: Order Comment: Speci men Type: BLOOD SPECIMENOrdering Facility: [facility] Address: [address] [place], [place] [address] Performed By: #### 2 4321-2, 38757-5, 2776-08, ####[facility] LABCLIA [id number] [address] [address] [place] CO2 [Moles/Vol] 17 mmol/L Low 22-30 [facility] Comment on above: Order Comment: Speci men Type: BLOOD SPECIMENOrdering Facility: [facility] Address: [address] [place], [place] [address] Performed By: #### 2 4321-2, 10722-9, 2776-08, ####[facility] LABIA [id number] [address] [address] [place] Creatinine [Mass/Vol] 0.89 mg/dL Normal 0.73-1.22 [facility] Comment on above: Order Comment: Ezekiel ramirez Type: BLOOD SPECIMENOrdering Facility: [facility] Address: [address] [place] [address] Performed By: #### 2 4321-2, 09080-1, 2776-08, ####[facility] [id number] [place] [id number] [place] Creatinine and Glomerular filtration rate.predicted panel (S/P/Bld) 99 mL/min/1.73m??? Normal >=60 [facility] Comment on above: Order Comment: Ezekiel ramirez Type: BLOOD SPECIMENOrdering Facility: [facility] Address: [address] [address] [place] [address] Result Comment: Patric mated Glomerular Filtration Rate [...] actual GFR. Performed By: #### 2 4321-2, 31358-2, 2776-08, ####[facility] LABIA [id number] [address] [address] [place] Glucose [Mass/Vol] 250 mg/dL High 74-99 [facility] Comment on above: Order Comment: Ezekiel ramirez Type: BLOOD SPECIMENOrdering Facility: [facility] Address: [address] [id number] Result Comment: The [place] [employer] (ADA) provides guidance for cutoff [...] Standards of Medical Care in Diabetes 2016, [place] [employer]. Diabetes Care. 2016.39(Suppl 1). Performed By: #### 2 4321-2, 93864-8, 2776-08, ####[facility] LABIA [id number] [place] [id number] [place] Potassium [Moles/Vol] 3.6 mmol/L Low 3.7-5.1 [facility] Comment on above: Order Comment: Speci men Type: BLOOD SPECIMENOrdering Facility: [facility] Address: [address] [place] [address] Performed By: #### 2 4321-2, 32827-0, 2776-08, ####[facility] LABIA [id number] [place] [id number] [place] Sodium [Moles/Vol] 127 mmol/L Low 136-144 [facility] Comment on above: Order Comment: Speci men Type: BLOOD SPECIMENOrdering Facility: [facility] Address: [address] [place] [address] Performed By: #### 2 4321-2, 65980-0, 2776-08, ####[facility] LABIA [id number] [place] [id number] [place] Urea nitrogen [Mass/Vol] 14 mg/dL Normal 9-24 [facility] Comment on above: Order Comment: Speci men Type: BLOOD SPECIMENOrdering Facility: [facility] Address: [address] [place] [address] Performed By: #### 2 4321-2, 73633-7, 2776-08, 26197-6 ####[facility] LABCLIA [id number] [address], [facility]95 [place] CBC W Auto Differential pane l (Bld)on 11-14-2024 Basophils (Bld) [#/Vol] 0.04 10*3/uL Normal <0.11 [facility] Comment on above: Order Comment: Speci men Type: BLOOD SPECIMENOrdering Facility: [facility] Address: [address] [place] [address] Performed By: #### 5 7021-8 ####[facility] LABCLIA [id number] [place] [address] [place] Basophils/100 WBC (Bld) 0.7 % Normal [facility] Comment on above: Order Comment: Speci men Type: BLOOD SPECIMENOrdering Facility: [facility] Address: [address] [place] [address] Performed By: #### 5 7021-8 ####[facility] LABCLIA [id number] [place] [address] [place] Differential cell count method Nom (Bld) Auto Normal [facility] Comment on above: Order Comment: Speci men Type: BLOOD SPECIMENOrdering Facility: [facility] Address: [address] [place] [address] Performed By: #### 5 7021-8 ####[facility] LABCLIA [id number] [place] [address] [place] Eosinophils (Bld) [#/Vol] 0.23 10*3/uL Normal <0.46 [facility] Comment on above: Order Comment: Speci men Type: BLOOD SPECIMENOrdering Facility: [facility] Address: [address] [place] [address] Performed By: #### 5 7021-8 ####[facility] LABCLIA [id number] [id number] [place] [address] [place] Eosinophils/100 WBC (Bld) 4.1 % Normal [facility] Comment on above: Order Comment: Speci men Type: BLOOD SPECIMENOrdering Facility: [facility] Address: [address] [place] [address] Performed By: #### 5 7021-8 ####[facility] LABCLIA [id number] [place] [address] [place] Erythrocyte distribution width (RBC) [Ratio] 16.3 % High 11.5-15.0 [facility] Comment on above: Order Comment: Speci men Type: BLOOD SPECIMENOrdering Facility: [facility] Address: [address] [place] [address] Performed By: #### 5 7021-8 ####[facility] LABCLIA [id number] [place] [address] [place] Hematocrit (Bld) [Volume fraction] 22.7 % Low 39.0-51.0 [facility] Comment on above: Order Comment: Speci men Type: BLOOD SPECIMENOrdering Facility: [facility] Address: [address] [place] [address] Performed By: #### 5 7021-8 ####[facility] LABIA [id number] [place] [address] [place] Hemoglobin (Bld) [Mass/Vol] 7.9 g/dL Low 13.0-17.0 [facility] Comment on above: Order Comment: Speci men Type: BLOOD SPECIMENOrdering Facility: [facility] Address: [address] [place] [address] Performed By: #### 5 7021-8 ####[facility] LABCLIA [id number] [place] [address] [place] Immature granulocytes (Bld) [#/Vol] 0.04 10*3/uL Normal <0.10 [facility] Comment on above: Order Comment: Speci men Type: BLOOD SPECIMENOrdering Facility: [facility] Address: [address] [place] [address] Performed By: #### 5 7021-8 ####[facility] LABCLIA [id number] [place] [address] [place] Immature granulocytes/100 WBC (Bld) 0.7 % Normal [facility] Comment on above: Order Comment: Speci men Type: BLOOD SPECIMENOrdering Facility: [facility] Address: [address] [place] [address] Performed By: #### 5 7021-8 ####[facility] LABCLIA [id number] [place] [address] [place] Lymphocytes (Bld) [#/Vol] 0.72 10*3/uL Low 1.00-4.00 [facility] Comment on above: Order Comment: Speci men Type: BLOOD SPECIMENOrdering Facility: [facility] Address: [address] [place] [address] Performed By: #### 5 7021-8 ####[facility] LABIA [id number] [place] [address] [place] Lymphocytes/100 WBC (Bld) 12.8 % Normal [facility] Comment on above: Order Comment: Speci men Type: BLOOD SPECIMENOrdering Facility: [facility] Address: [address] [place] [address] Performed By: #### 5 7021-8 ####[facility] LABIA [id number] [place] [address] [place] MCH (RBC) [Entitic mass] 31.7 pg Normal 26.0-34.0 [facility] Comment on above: Order Comment: Speci men Type: BLOOD SPECIMENOrdering Facility: [facility] Address: [address] [place] [address] Performed By: #### 5 7021-8 ####[facility] LABCLIA [id number] [place] [address] [place] MCHC (RBC) [Mass/Vol] 34.8 g/dL Normal 30.5-36.0 [facility] Comment on above: Order Comment: Speci men Type: BLOOD SPECIMENOrdering Facility: [facility] Address: [address] [place] [address] Performed By: #### 5 7021-8 ####[facility] LABCLIA [id number] [place] [address] [place] MCV (RBC) [Entitic vol] 91.2 fL Normal 80.0-100.0 [facility] Comment on above: Order Comment: Speci men Type: BLOOD SPECIMENOrdering Facility: [facility] Address: [address] [place] [address] Performed By: #### 5 7021-8 ####[facility] LABIA [id number] [place] [address] [place] Monocytes (Bld) [#/Vol] 0.68 10*3/uL Normal <0.87 [facility] Comment on above: Order Comment: Speci men Type: BLOOD SPECIMENOrdering Facility: [facility] Address: [address] [place] [address] Performed By: #### 5 7021-8 ####[facility] LABIA [id number] [place] [address] [place] Monocytes/100 WBC (Bld) 12.1 % Normal [facility] Comment on above: Order Comment: Speci men Type: BLOOD SPECIMENOrdering Facility: [facility] Address: [address] [place] [address] Performed By: #### 5 7021-8 ####[facility] LABCLIA [id number] [place] [address] [place] Neutrophils (Bld) [#/Vol] 3.92 10*3/uL Normal 1.45-7.50 [facility] Comment on above: Order Comment: Speci men Type: BLOOD SPECIMENOrdering Facility: [facility] Address: [address] [place] [address] Performed By: #### 5 7021-8 ####[facility] LABCLIA [id number] [place] [address] [place] Neutrophils/100 WBC (Bld) 69.6 % Normal [facility] Comment on above: Order Comment: Speci men Type: BLOOD SPECIMENOrdering Facility: [facility] Address: [address] [place] [address] Performed By: #### 5 7021-8 ####[facility] LABIA [id number] [place] [address] [place] Nucleated RBC (Bld) [#/Vol] 10*3/uL Normal <0.01 [facility] Comment on above: Order Comment: Speci men Type: BLOOD SPECIMENOrdering Facility: [facility] Address: [address] [place] [address] Performed By: #### 5 7021-8 ####[facility] LABIA [id number] [place] [address] [place] Nucleated RBC/100 WBC (Bld) [Ratio] 0.0 /100 WBC Normal [facility] Comment on above: Order Comment: Speci men Type: BLOOD SPECIMENOrdering Facility: [facility] Address: [address] [place] [address] Performed By: #### 5 7021-8 ####[facility] LABIA [id number] [place] [address] [place] Platelet mean volume (Bld) [Entitic vol] 12.1 fL Normal 9.0-12.7 [facility] Comment on above: Order Comment: Speci men Type: BLOOD SPECIMENOrdering Facility: [facility] Address: [address] [place] [address] Performed By: #### 5 7021-8 ####[facility] LABCLIA [id number] [place] [address] [place] Platelets (Bld) [#/Vol] 43 10*3/uL Low 150-400 [facility] Comment on above: Order Comment: Speci men Type: BLOOD SPECIMENOrdering Facility: [facility] Address: [address] [place] [address] Result Comment: Resu lts checked and verified.No clot detected. Performed By: #### 5 7021-8 ####[facility] LABCLIA [id number] [place] [address] [place] RBC (Bld) [#/Vol] 2.49 10*6/uL Low 4.20-6.00 [facility] Comment on above: Order Comment: Speci men Type: BLOOD SPECIMENOrdering Facility: [facility] Address: [address] [place] [address] Performed By: #### 5 7021-8 ####[facility] LABIA [id number] [place] [address] [place] WBC (Bld) [#/Vol] 5.63 10*3/uL Normal 3.70-11.00 [facility] Comment on above: Order Comment: Speci men Type: BLOOD SPECIMENOrdering Facility: [facility] Address: [address] [place] [address] Performed By: #### 5 7021-8 ####[facility] LABCLIA [id number] [place] [address] [place] Fibrinogen PPP-mCncon 2024 Fibrinogen Coag (PPP) [Mass/Vol] 119 mg/dL Low 200-400 [facility] Comment on above: Order Comment: Speci men Type: BLOOD SPECIMENOrdering Facility: [facility] Address: [address] [place] [address] Performed By: #### 3 255-7, 96618-6 ####[facility] LABCLIA [id number] [place] [address] [place] Hepatic function 2000 panelo n 11-14-2024 Albumin [Mass/Vol] 2.8 g/dL Low 3.9-4.9 [facility] Comment on above: Order Comment: Speci men Type: BLOOD SPECIMENOrdering Facility: [facility] Address: [address] [place] [address] Performed By: #### 2 4321-2, 82445-1, 2777-1, 53000-1 ####[facility] LABCLIA [id number] [place] [address] [place] ALP [Catalytic activity/Vol] 248 U/L High 38-113 [facility] Comment on above: Order Comment: Speci men Type: BLOOD SPECIMENOrdering Facility: [facility] Address: [address] [place] [address] Performed By: #### 2 4321-2, 14735-8, 277-1, 13063-7 ####[facility] LABCLIA [id number] [place] [address] [place] ALT [Catalytic activity/Vol] 29 U/L Normal 10-54 [facility] Comment on above: Order Comment: Speci men Type: BLOOD SPECIMENOrdering Facility: [facility] Address: [address] [place] [address] Performed By: #### 2 4321-2, 63323-6, 277-1, ####[facility] LABCLIA [id number] [place] [id number] [place] AST [Catalytic activity/Vol] 62 U/L High 14-40 [facility] Comment on above: Order Comment: Speci men Type: BLOOD SPECIMENOrdering Facility: [facility] Address: [address] [place] [address] Performed By: #### 2 4321-2, 07088-0, 2777-1, 00583-1 ####[facility] LABCLIA [id number] [address] [address] [place] Bilirubin [Mass/Vol] 1.7 mg/dL High 0.2-1.3 [facility] Comment on above: Order Comment: Speci men Type: BLOOD SPECIMENOrdering Facility: [facility] Address: [address] [place] [address] Performed By: #### 2 4321-2, 81641-3, 277-, ####[facility] LABCLIA [id number] [place] [id number] [place] Bilirubin.conjugated [Mass/Vol] 1.0 mg/dL High <0.3 [facility] Comment on above: Order Comment: Speci men Type: BLOOD SPECIMENOrdering Facility: [facility] Address: [address] [place] [address] Performed By: #### 2 4321-2, 29080-1, 27702-01, ####[facility] LABIA [id number] [place] [address] [place] Protein [Mass/Vol] 5.4 g/dL Low 6.3-8.0 [facility] Comment on above: Order Comment: Speci men Type: BLOOD SPECIMENOrdering Facility: [facility] Address: [address] [place] [address] Performed By: #### 2 4321-2, 25323-1, 27702-01, ####[facility] LABIA [id number] [address] [address] [place] Magnesium SerPl-mCncon 11-14 Magnesium [Mass/Vol] 1.6 mg/dL Low 1.7-2.3 [facility] Comment on above: Order Comment: Speci men Type: BLOOD SPECIMENOrdering Facility: [facility] Address: [address] [place] [address] Performed By: #### 2 4321-2, 60576-7, 27702-01, 30367-3 ####[facility] LABCLIA [id number] [place] [id number] [place] PT panel Coag (PPP)on 2024 INR Coag (PPP) [Relative time] 1.8 {INR} High 0.9-1.3 [facility] Comment on above: Order Comment: Speci men Type: BLOOD SPECIMENOrdering Facility: [facility] Address: [address] [place] [address] Result Comment: Sarah min K Antagonist (VKA) Therapeutic Range: INR 2 to 3 (Target INR of 2.5)Note: For patients treated with VKA drugs, such as warfarin, the [place] [employer] 2012 Guideline recommends [...] al. Chest 2012, 141:7S-47SHector RA, et al. [facility] 2017, 70: 252-289 Performed By: #### 3 255-7, 35946-8 ####[facility] LABCLIA [id number] [address] [address] [place] PT Coag (PPP) [Time] 19.2 s High 9.7-13.0 [facility] Comment on above: Order Comment: Meggani men Type: BLOOD SPECIMENOrdering Facility: [facility] Address: [address] [place] [address] Performed By: #### 3 255-7, 64359-8 ####[facility] LABCLIA [id number] [address] [address] [place] Phosphate SerPl-mCncon 11-14 Phosphate [Mass/Vol] 1.9 mg/dL Low 2.7-4.8 [facility] Comment on above: Order Comment: Speci men Type: BLOOD SPECIMENOrdering Facility: [facility] Address: [address] [place] [address] Performed By: #### 2 4321-2, 28681-2, 2777-1, 74617-4 ####[facility] LABCLIA [id number] [place] [address] [place] URINALYSIS, REFLEX MICROSCOP ICon 11-14-2024 Bacteria LM.HPF (Urine sed) [#/Area] Negative Normal Negative [facility] Comment on above: Order Comment: Speci men Type: URINE SPECIMENOrdering Facility: [facility] Address: [address] [place] [address] Performed By: #### L [id number] ####[facility] LABCLIA [id number] [place] [address] [place] Bilirubin Ql (U) 1+ Abnormal Negative [facility] Comment on above: Order Comment: Speci men Type: URINE SPECIMENOrdering Facility: [facility] Address: [address] [place] [address] Result Comment: Sugg est correlation with clinical findings and serum bilirubin if clinically indicated. Performed By: #### L [id number] ####[facility] LABCLIA [id number] [place] [address] [place] Clarity (Unsp spec) Cloudy Abnormal Clear [facility] Comment on above: Order Comment: Speci men Type: URINE SPECIMENOrdering Facility: [facility] Address: [address] [place] [address] Performed By: #### L [id number] ####[facility] LABCLIA [id number] [place] [address] [place] Color (U) [place] Abnormal Yellow [facility] Comment on above: Order Comment: Speci men Type: URINE SPECIMENOrdering Facility: [facility] Address: [address] [place] [address] Performed By: #### L [id number] ####[facility] LABCLIA [id number] [place] [address] [place] [facility] Epithelial cells LM.HPF (Urine sed) [#/Area] None Seen Normal [facility] Comment on above: Order Comment: Speci men Type: URINE SPECIMENOrdering Facility: [facility] Address: [address] [place] [address] Performed By: #### L [id number] ####[facility] LABCLIA [id number] [address] [place] Glucose Test strip (U) [Mass/Vol] Negative Normal Negative [facility] Comment on above: Order Comment: Speci men Type: URINE SPECIMENOrdering Facility: [facility] Address: [address] [place] [address] Performed By: #### L [id number] ####[facility] LABCLIA [id number] [place] [address] [place] Hemoglobin Ql (U) 3+ Abnormal Negative [facility] Comment on above: Order Comment: Speci men Type: URINE SPECIMENOrdering Facility: [facility] Address: [address] [place] [address] Performed By: #### L [id number] ####[facility] LABCLIA [id number] [place] [id number] [place] Hyaline casts (Urine sed) [#/Area] 0 /[LPF] Normal 0 /LPF [facility] Comment on above: Order Comment: Speci men Type: URINE SPECIMENOrdering Facility: [facility] Address: [address] [place] [address] Performed By: #### L [id number] ####[facility] LABCLIA [id number] [place] [id number] [place] Ketones Ql (U) Negative Normal Negative [facility] Comment on above: Order Comment: Speci men Type: URINE SPECIMENOrdering Facility: [facility] Address: [address] [place] [address] Performed By: #### L [id number] ####[facility] LABCLIA [id number] [place] [address] [place] Leukocyte esterase Test strip Ql (U) 3+ Abnormal Negative [facility] Comment on above: Order Comment: Speci men Type: URINE SPECIMENOrdering Facility: [facility] Address: [address] [place] [address] Performed By: #### L [id number] ####[facility] LABCLIA [id number] [place] [address] [place] Nitrite Ql (U) Negative Normal Negative [facility] Comment on above: Order Comment: Speci men Type: URINE SPECIMENOrdering Facility: [facility] Address: [address] [place] [address] Performed By: #### L [id number] ####[facility] LABCLIA [id number] [place] [address] [place] pH (U) 6.0 [pH] Normal <8.5 [facility] Comment on above: Order Comment: Speci men Type: URINE SPECIMENOrdering Facility: [facility] Address: [address] [place] [address] Performed By: #### L [id number] ####[facility] LABCLIA [id number] [place] [id number] [place] Protein (U) [Mass/Vol] 2+ Abnormal Negative [facility] Comment on above: Order Comment: Speci men Type: URINE SPECIMENOrdering Facility: [facility] Address: [address] [place] [address] Performed By: #### L [id number] ####[facility] LABCLIA [id number] [place] [address] [place] RBC LM.HPF (Urine sed) [#/Area] /[HPF] Abnormal 0-2 /HPF [facility] Comment on above: Order Comment: Speci men Type: URINE SPECIMENOrdering Facility: [facility] Address: [address] [place] [address] Performed By: #### L [id number] ####[facility] LABIA [id number] [place] [address] [place] Specific gravity (U) [Rel density] 1.017 Normal 1.005-1.030 [facility] Comment on above: Order Comment: Speci men Type: URINE SPECIMENOrdering Facility: [facility] Address: [address] [place] [address] Performed By: #### L [id number] ####[facility] [id number] [address] [place] Urobilinogen Ql (U) 0.2 EU/dL Normal 0.2-1.0 EU/dL [facility] Comment on above: Order Comment: Speci men Type: URINE SPECIMENOrdering Facility: [facility] Address: [address] [place] [address] Performed By: #### L [id number] ####[facility] LABIA [id number] [place] [address] [place] WBC LM.HPF (Urine sed) [#/Area] /[HPF] Abnormal 0-5 /HPF [facility] Comment on above: Order Comment: Speci men Type: URINE SPECIMENOrdering Facility: [facility] Address: [address] [place] [address] Performed By: #### L [id number] ####[facility] LABIA [id number] [place] [address] [place] Yeast.budding LM.HPF (Urine sed) [#/Area] Present Abnormal None Seen [facility] Comment on above: Order Comment: Speci men Type: URINE SPECIMENOrdering Facility: [facility] Address: [address] [place] [address] Performed By: #### L [id number] ####[facility] LABCLIA [id number] [address] [place] 25(OH)D3 [facility]-ncon 2024 25-hydroxyvitamin D3 [Mass/Vol] 16.2 ng/mL Low 31.0-80.0 [facility] Comment on above: Order Comment: Speci men Type: BLOOD SPECIMENOrdering Facility: [facility] Address: [address] [place] [address] Performed By: #### 7 852-7, MEASLG, VZVG2, 1988- ####[facility] LABIA [id number] [place] [address] [place] A-Tocopherol Vit E [facility]-n con 11-13-2024 Alpha tocopherol [Mass/Vol] 3.3 mg/L Low 6.0-23.0 [facility] Comment on above: Order Comment: Speci men Type: BLOOD SPECIMENOrdering Facility: [facility] Address: [address] [place] [address] Performed By: #### 2 923-1, 1823-4 ####[facility] [id number] [address] [place] ALPHA-1 ANTITRYPSIN GENOon 0 11-13-2024 HA1AT REVIEWED BY [facility] Comment on above: Order Comment: Speci men Type: BLOOD SPECIMENOrdering Facility: [facility] Address: [address] [place] [address] Result Comment: Alph a-1 Antitrypsin GenotypingLaboratory Accession Number: [id number]:No Variant Detected in SERPINA1 (PI*MM)Interpretation:DNA testing indicates [...] the two mostcommon pathogenic variants: S (c.863A>T, p.Iec550Vzh, g.[id number]), Z(c.1096G>A, p.Tft255Oui, g.67116163), and the rarer variants: F(c.739C>T, p.Nxq725Fgh, g.87441824), I (c.187C>T, p.Efm59Wag,g.11405226).Limitations:This Laboratory Developed Test (LDT) is designed to [...] was developed and its performance characteristics determinedby [facility]'s [facility] and [facility] Department. Ithas not been cleared or approved by the FDA. [facility] is regulated under CLIAas certified to perform high-complexity testing. This test is used forclinical purposes. It should not be regarded as investigational or forresearch.Test performed at [facility], [address] [facility], [place]. CLIA Number: [id number]:1) Kait HIRSCH, Samir G, Essence ML, Ilan [...] NA, Brad CR, Jennifer FJ, Salvador SJ, Niocle. Molecular characterisation of three syhxq-3-kfdxdeanaji deficiencyvariants: proteinase inhibitor (Pi) nullcardiff (Aiy569----Gvr);PiMmalton (Eqv77----aajzmont) and PiI (Kim46----Xtj). Hum Trisha. 1988Dec;84(1):55-8.4) Flor EK and Kait HIRSCH. Clinical practice.Alpha1-antitrypsin deficiency. N Engl J Med. 2008;360(25)1844-.5) Margot BETANCOURT, Kwame F, Prakash HIRSCH. The significance of the F variantof ydnhd-5-kesmgbxmqgx and unique case report of a PiFF homozygote.[facility] Pulm Med. 2014 Mar 10;14:132.6) Ivania MARIE, Elena SHETTY, and Jaziel Mckinney Alpha-1 AntitrypsinDeficiency. 2005May 30 [Updated 2016August 22]. In: Juanito HIRSCH, Barbara, Nemesio TO, et al., editors. Luis Fernando [Internet]. [place] ([place]):[facility]; 5731-0117. Available from:http://www.ncbi.nlm.nih.gov/books/KIH7337/Interpretation performed at remote location (R0A1) by Fifi España MD Performed By: #### H A1AT ####CLARITY ILLUMINA LIMSCLIA [id number] [place] [address] [place] ANES POSTPROC EVALon 025 ANES POSTPROC EVAL Normal [facility] ANES PRE-OPon 11-13-2024 ANES PRE-OP Normal [facility] Alpha tocopherol [Mass/Vol]o n 11-13-2024 Beta+gamma tocopherol [Mass/Vol] 0.6 mg/L Normal 0.3-3.2 [facility] Comment on above: Order Comment: Speci men Type: BLOOD SPECIMENOrdering Facility: [facility] Address: [address] [place] [address] Result Comment: This test was developed, and its performance characteristics determined by the [facility] Department of Pathology and Laboratory Medicine. It has not been cleared or approved by the FDA. The [facility] Department of Pathology and Laboratory Medicine is regulated under CLIA as qualified to perform high-complexity testing. This test is used for clinical purposes. It should not be regarded as investigational or for research. Performed By: #### 2 923-1, 1823-4 ####[facility] LABCLIA [id number] [place] [address] [place] Basic metabolic 2000 panelon 11-13-2024 Anion gap [Moles/Vol] 9 mmol/L Normal 8-15 [facility] Comment on above: Order Comment: Speci men Type: BLOOD SPECIMENOrdering Facility: [facility] Address: [address] [place] [address] Performed By: #### 2 4321-2, 57543-2, 18841-2, 32447-2 ####[facility] LABCLIA [id number] [address] [address] [place] Calcium [Mass/Vol] 9.1 mg/dL Normal 8.5-10.2 [facility] Comment on above: Order Comment: Speci men Type: BLOOD SPECIMENOrdering Facility: [facility] Address: [address] [place] [address] Performed By: #### 2 4321-2, 89169-0, 92383-3, 07216-8 ####[facility] LABIA [id number] [place] [id number] [place] Chloride [Moles/Vol] 99 mmol/L Normal 98-107 [facility] Comment on above: Order Comment: Speci men Type: BLOOD SPECIMENOrdering Facility: [facility] Address: [address] [place] [address] Performed By: #### 2 4321-2, 45196-4, 90247-6, 96968-9 ####[facility] LABIA [id number] [place] [id number] [place] CO2 [Moles/Vol] 16 mmol/L Low 22-30 [facility] Comment on above: Order Comment: Speci men Type: BLOOD SPECIMENOrdering Facility: [facility] Address: [address] [place] [address] Performed By: #### 2 4321-2, 12195-9, 39331-1, 50425-7 ####[facility] LABIA [id number] [place] [id number] [place] Creatinine [Mass/Vol] 1.10 mg/dL Normal 0.73-1.22 [facility] Comment on above: Order Comment: Speci men Type: BLOOD SPECIMENOrdering Facility: [facility] Address: [address] [place] [address] Performed By: #### 2 4321-2, 70037-6, 67323-2, 20832-1 ####[facility] LABIA [id number] [place] [id number] [place] Creatinine and Glomerular filtration rate.predicted panel (S/P/Bld) 78 mL/min/1.73m??? Normal >=60 [facility] Comment on above: Order Comment: Ezekiel ramirez Type: BLOOD SPECIMENOrdering Facility: [facility] Address: [address] [place] [address] Result Comment: Patric mated Glomerular Filtration Rate [...] actual GFR. Performed By: #### 2 4321-2, 01310-1, 12383-4, 38331-4 ####[facility] LABIA [id number] [address] [address] [place] Glucose [Mass/Vol] 278 mg/dL High 74-99 [facility] Comment on above: Order Comment: Ezekiel ramirez Type: BLOOD SPECIMENOrdering Facility: [facility] Address: [address] [place] [address] Result Comment: The [place] Diabetes Association (ADA) provides guidance for cutoff [...] Standards of Medical Care in Diabetes 2016, [place] [employer]. Diabetes Care. 2016.39(Suppl 1). Performed By: #### 2 4321-2, 89855-1, 72471-1, 07068-5 ####[facility] LABIA [id number] [place] [id number] [place] Potassium [Moles/Vol] 4.1 mmol/L Normal 3.7-5.1 [facility] Comment on above: Order Comment: Speci men Type: BLOOD SPECIMENOrdering Facility: [facility] Address: [address] [place] [address] Performed By: #### 2 4321-2, 31085-7, 37762-1, 05286-4 ####[facility] [id number] [place] [address] [place] Sodium [Moles/Vol] 124 mmol/L Low 136-144 [facility] Comment on above: Order Comment: Speci men Type: BLOOD SPECIMENOrdering Facility: [facility] Address: [address] [place] [address] Performed By: #### 2 4321-2, 54307-8, 98178-4, 61081-0 ####[facility] [id number] [place] [address] [place] Urea nitrogen [Mass/Vol] 20 mg/dL Normal 9-24 [facility] Comment on above: Order Comment: Speci men Type: BLOOD SPECIMENOrdering Facility: [facility] Address: [address] [place] [address] Performed By: #### 2 4321-2, 88650-5, 59415-8, 64745-3 ####[facility] [id number] [place] [id number] [place] CBC W Auto Differential pane l (Bld)on 11-13-2024 Basophils (Bld) [#/Vol] 10*3/uL Normal <0.11 [facility] Comment on above: Order Comment: Speci men Type: BLOOD SPECIMENOrdering Facility: [facility] Address: [address] [place] [address] Performed By: #### 5 7021-8 ####[facility] LABCLIA [id number] [place] [address] [place] Basophils/100 WBC (Bld) 0.4 % Normal [facility] Comment on above: Order Comment: Speci men Type: BLOOD SPECIMENOrdering Facility: [facility] Address: [address] [place] [address] Performed By: #### 5 7021-8 ####[facility] LABCLIA [id number] [place] [address] [place] Differential cell count method Nom (Bld) Auto Normal [facility] Comment on above: Order Comment: Speci men Type: BLOOD SPECIMENOrdering Facility: [facility] Address: [address] [place] [address] Performed By: #### 5 7021-8 ####[facility] LABCLIA [id number] [place] [address] [place] Eosinophils (Bld) [#/Vol] 0.18 10*3/uL Normal <0.46 [facility] Comment on above: Order Comment: Speci men Type: BLOOD SPECIMENOrdering Facility: [facility] Address: [address] [place] [address] Performed By: #### 5 7021-8 ####[facility] LABCLIA [id number] [address] [place] Eosinophils/100 WBC (Bld) 3.3 % Normal [facility] Comment on above: Order Comment: Speci men Type: BLOOD SPECIMENOrdering Facility: [facility] Address: [address] [place] [address] Performed By: #### 5 7021-8 ####[facility] LABCLIA [id number] [place] [address] [place] Erythrocyte distribution width (RBC) [Ratio] 17.0 % High 11.5-15.0 [facility] Comment on above: Order Comment: Speci men Type: BLOOD SPECIMENOrdering Facility: [facility] Address: [address] [place] [address] Performed By: #### 5 7021-8 ####[facility] LABIA [id number] [place] [address] [place] Hematocrit (Bld) [Volume fraction] 21.6 % Low 39.0-51.0 [facility] Comment on above: Order Comment: Speci men Type: BLOOD SPECIMENOrdering Facility: [facility] Address: [address] [place] [address] Performed By: #### 5 7021-8 ####[facility] LABIA [id number] [place] [address] [place] Hemoglobin (Bld) [Mass/Vol] 7.4 g/dL Low 13.0-17.0 [facility] Comment on above: Order Comment: Speci men Type: BLOOD SPECIMENOrdering Facility: [facility] Address: [address] [place] [address] Performed By: #### 5 7021-8 ####[facility] LABIA [id number] [place] [address] [place] Immature granulocytes (Bld) [#/Vol] 0.04 10*3/uL Normal <0.10 [facility] Comment on above: Order Comment: Speci men Type: BLOOD SPECIMENOrdering Facility: [facility] Address: [address] [place] [address] Performed By: #### 5 7021-8 ####[facility] LABIA [id number] [place] [address] [place] Immature granulocytes/100 WBC (Bld) 0.7 % Normal [facility] Comment on above: Order Comment: Speci men Type: BLOOD SPECIMENOrdering Facility: [facility] Address: [address] [place] [address] Performed By: #### 5 7021-8 ####[facility] LABCLIA [id number] [address], [place] [address] [place] Lymphocytes (Bld) [#/Vol] 0.64 10*3/uL Low 1.00-4.00 [facility] Comment on above: Order Comment: Speci men Type: BLOOD SPECIMENOrdering Facility: [facility] Address: [address] [place] [address] Performed By: #### 5 7021-8 ####[facility] LABCLIA [id number] [address], [place] [address] [place] Lymphocytes/100 WBC (Bld) 11.6 % Normal [facility] Comment on above: Order Comment: Speci men Type: BLOOD SPECIMENOrdering Facility: [facility] Address: [address] [place] [address] Performed By: #### 5 7021-8 ####[facility] LABCLIA [id number] [address], [facility] [place] MCH (RBC) [Entitic mass] 31.8 pg Normal 26.0-34.0 [facility] Comment on above: Order Comment: Speci men Type: BLOOD SPECIMENOrdering Facility: [facility] Address: [address] [place] [address] Performed By: #### 5 7021-8 ####[facility] LABCLIA [id number] [address], [facility]95 [place] MCHC (RBC) [Mass/Vol] 34.3 g/dL Normal 30.5-36.0 [facility] Comment on above: Order Comment: Speci men Type: BLOOD SPECIMENOrdering Facility: [facility] Address: [address] [place] [address] Performed By: #### 5 7021-8 ####[facility] LABCLIA [id number] [place] [id number] [place] MCV (RBC) [Entitic vol] 92.7 fL Normal 80.0-100.0 [facility] Comment on above: Order Comment: Speci men Type: BLOOD SPECIMENOrdering Facility: [facility] Address: [address] [place] [address] Performed By: #### 5 7021-8 ####[facility] LABCLIA [id number] [place] [address] [place] Monocytes (Bld) [#/Vol] 0.68 10*3/uL Normal <0.87 [facility] Comment on above: Order Comment: Speci men Type: BLOOD SPECIMENOrdering Facility: [facility] Address: [address] [place] [address] Performed By: #### 5 7021-8 ####[facility] LABCLIA [id number] [place] [address] [place] Monocytes/100 WBC (Bld) 12.4 % Normal [facility] Comment on above: Order Comment: Speci men Type: BLOOD SPECIMENOrdering Facility: [facility] Address: [address] [place] [address] Performed By: #### 5 7021-8 ####[facility] LABCLIA [id number] [place] [id number] [place] Neutrophils (Bld) [#/Vol] 3.94 10*3/uL Normal 1.45-7.50 [facility] Comment on above: Order Comment: Speci men Type: BLOOD SPECIMENOrdering Facility: [facility] Address: [address] [place] [address] Performed By: #### 5 7021-8 ####[facility] LABCLIA [id number] [place] [id number] [place] Neutrophils/100 WBC (Bld) 71.6 % Normal [facility] Comment on above: Order Comment: Speci men Type: BLOOD SPECIMENOrdering Facility: [facility] Address: [address] [place] [address] Performed By: #### 5 7021-8 ####[facility] LABIA [id number] [place] [address] [place] Nucleated RBC (Bld) [#/Vol] 10*3/uL Normal <0.01 [facility] Comment on above: Order Comment: Speci men Type: BLOOD SPECIMENOrdering Facility: [facility] Address: [address] [place] [address] Performed By: #### 5 7021-8 ####[facility] LABIA [id number] [place] [address] [place] Nucleated RBC/100 WBC (Bld) [Ratio] 0.0 /100 WBC Normal [facility] Comment on above: Order Comment: Speci men Type: BLOOD SPECIMENOrdering Facility: [facility] Address: [address] [place] [address] Performed By: #### 5 7021-8 ####[facility] [id number] [place] [address] [place] Platelet mean volume (Bld) [Entitic vol] 11.7 fL Normal 9.0-12.7 [facility] Comment on above: Order Comment: Speci men Type: BLOOD SPECIMENOrdering Facility: [facility] Address: [address] [place] [address] Performed By: #### 5 7021-8 ####[facility] LABIA [id number] [place] [address] [place] Platelets (Bld) [#/Vol] 38 10*3/uL Low 150-400 [facility] Comment on above: Order Comment: Speci men Type: BLOOD SPECIMENOrdering Facility: [facility] Address: [address] [place] [address] Result Comment: Resu lts checked and verified.No clot detected. Performed By: #### 5 7021-8 ####[facility] LABCLIA [id number] [place] [address] [place] RBC (Bld) [#/Vol] 2.33 10*6/uL Low 4.20-6.00 [facility] Comment on above: Order Comment: Speci men Type: BLOOD SPECIMENOrdering Facility: [facility] Address: [address] [place] [address] Performed By: #### 5 7021-8 ####[facility] LABCLIA [id number] [place] [address] [place] WBC (Bld) [#/Vol] 5.50 10*3/uL Normal 3.70-11.00 [facility] Comment on above: Order Comment: Speci men Type: BLOOD SPECIMENOrdering Facility: [facility] Address: [address] [place] [address] Performed By: #### 5 7021-8 ####[facility] LABIA [id number] [place] [address] [place] CMV IgG Qnon 11-13-2024 CMV IGG QUAL Negative Normal Negative [facility] Comment on above: Order Comment: Speci men Type: BLOOD SPECIMENOrdering Facility: [facility] Address: [address] [place] [address] Result Comment: No s erological evidence of past exposure to Cytomegalovirus. Cannot exclude recent infection if the specimen collected within 4-6 weeks after infection. Performed By: #### 7 852-7, MEASLG, VZVG2, 1988- ####[facility] LABIA [id number] [place] [address] [place] CMV IgG SerPl-aCncon 025 CMV IgG Qn 0.37 U/mL Normal [facility] Comment on above: Order Comment: Speci men Type: BLOOD SPECIMENOrdering Facility: [facility] Address: [address] [place] [address] Result Comment: The magnitude of the measured result is not indicative of the amount of antibody present.U/mL values are interpreted as follows:Negative <0.6Equivocal 0.6 to <0.70Positive >=0.70 Performed By: #### 7 852-7, MEASLG, VZVG2, 1988-10 ####[facility] LABCLIA [id number] [place] [id number] [place] CONSULT PROGon 11-13-2024 CONSULT PROG Normal [facility] CYTOLOGY NON-GYNon 5 AP DISCLAIMER Normal [facility] Comment on above: Order Comment: Speci men Type: FLUID SPECIMENOrdering Facility: [facility] Address: [address] [place] [address] Result Comment: Shellie pugh Developed Test (LDT) Disclaimer:Performance characteristics of immunohistochemical, immunofluorescent, and chromogenic in-situ hybridization tests have been determined by the performing laboratory within [facility]'s [facility] Pathology and Laboratory Medicine Department ([facility], [facility], [facility], [facility], [facility], [facility], or [facility]) in a manner consistent with CLIA requirements. One or more of these tests may not have been cleared or approved by the FDA. [facility] is regulated under CLIA as qualified to perform high-complexity testing. These tests are used for clinical purposes. These should not be regarded as investigational or for research. Positive and negative controls stain appropriately. Performed By: #### C YTONON ####[facility] LABCLIA [id number] [place] [id number] [place] CASE REPORT Normal [facility] Comment on above: Order Comment: Speci men Type: FLUID SPECIMENOrdering Facility: [facility] Address: [address] [place] [address] Result Comment: [facility] Cytology Report Case: [id number] Provider: Deb Fox MD Collected: 11/13/2024 02:46 PMOrdering Location: [place] [address] Received: 11/15/2024 05:01 AMPathologist: Aman, Foster, MDSpecimen: Urine, Midstream Performed By: #### C YTONON ####[facility] LABCLIA [id number] [address] [address] [place] CLINICAL HISTORY Staghorn calculi, s/ p L sided stenting with hematuria Normal [facility] Comment on above: Order Comment: Speci men Type: FLUID SPECIMENOrdering Facility: [facility] Address: [address] [place] [address] Performed By: #### C YTONON ####[facility] LABCLIA [id number] [address] [address] [facility] DIAGNOSIS COMMENT Normal [facility] Comment on above: Order Comment: Speci men Type: FLUID SPECIMENOrdering Facility: [facility] Address: [address] [place] [address] Result Comment: A. F ungal yeast forms are seen, morphologically consistent with Mary species. Clinical correlation is suggested. Performed By: #### C YTONON ####[facility] LABCLIA [id number] [address] [address] [facility] FINAL DIAGNOSIS Normal [facility] Comment on above: Order Comment: Speci men Type: FLUID SPECIMENOrdering Facility: [facility] Address: [address] [place] [address] Result Comment: A - Urine, Voided: Negative for high-grade urothelial carcinoma. Abundant acute inflammation (see comment). at 1141 EDT Performed By: #### C YTONON ####[facility] LABCLIA [id number] [address] [address] [facility] [place] FINAL PERFORMING LAB Normal [facility] Comment on above: Order Comment: Speci men Type: FLUID SPECIMENOrdering Facility: [facility] Address: [address] [place] [address] Result Comment: Tech nical component, chocolate molder screening performed at: [facility], [address] [place] [address] CLIA: [id number] interpretation performed at: [facility], [address] [place] [address] CLIA# [id number] Director: Titi Voss MD Performed By: #### C YTONON ####[facility] LABIA [id number] [place] [address] [place] GROSS DESCRIPTION Normal [facility] Comment on above: Order Comment: Speci men Type: FLUID SPECIMENOrdering Facility: [facility] Address: [address] [place] [address] Result Comment: A. U rine, [id number] cc cloudy lexis fluid . ThinPrep prepared. Performed By: #### C YTONON ####[facility] [id number] [place] [address] [place] EBV capsid IgG Qn (S)on 11-02 EBV VCA IGG, QUAL Positive Abnormal Negative [facility] Comment on above: Order Comment: Speci men Type: BLOOD SPECIMENOrdering Facility: [facility] Address: [address] [place] [address] Result Comment: The result suggests recent or past EBV infection. The final interpretation should be done in the context of other EBV serology panel results. Performed By: #### 8 039-0, 7885-7 ####[facility] LABIA [id number] [place] [address] [place] Fibrinogen PPP-mCncon 2024 Fibrinogen Coag (PPP) [Mass/Vol] 94 mg/dL Low 200-400 [facility] Comment on above: Order Comment: Speci men Type: BLOOD SPECIMENOrdering Facility: [facility] Address: [address] [place] [address] Result Comment: Samp le checked for clot. Performed By: #### 3 4528-0, 3255-7 ####[facility] LABCLIA [id number] [place] [address] [place] HBV core Ab Ser Qlon 025 HBV core Ab Ql (S) Negative Normal Negative [facility] Comment on above: Order Comment: Speci men Type: BLOOD SPECIMENOrdering Facility: [facility] Address: [address] [place] [address] Result Comment: No e vidence of current or past infection with Hepatitis B virus. Should recent infection be suspected, repeat testing may be considered 3-4 weeks after this draw. Performed By: #### 3 1201-7, 61095-4, [facility], 5195-3, 36108-7 ####[facility] LABIA [id number] [place] [address] [place] HBV surface Ab Ql (S)on 11-02 HBV surface Ab Qn (S) <8.00 Normal [facility] [facility] Comment on above: Order Comment: Speci men Type: BLOOD SPECIMENOrdering Facility: [facility] Address: [address] [place] [address] Result Comment: <8 m IU/mL: No serological evidence of immunity to Hepatitis B Virus.>/= 8 to <12 mIU/mL: No serological evidence of immunity to Hepatitis B Virus.>/= 12 mIU/mL: Consistent with serological evidence of immunity to Hepatitis B Virus. Performed By: #### 3 1201-7, 60886-7, AHAV, 5195-3, 83917-0 ####[facility] LABIA [id number] [place] [address] [place] HBV surface Ab Ser Qlon 11-02 HBV surface Ab Ql (S) Negative Normal [facility] Comment on above: Order Comment: Speci men Type: BLOOD SPECIMENOrdering Facility: [facility] Address: [address] [place] [address] Result Comment: No s erological evidence of immunity to Hepatitis B Virus. Performed By: #### 3 1201-7, 33352-0, AHAVG, 5-3, 18454-6 ####[facility] LABCLIA [id number] [place] [address] [place] HBV surface Ag Ser Qlon 11-02 HBV surface Ag Ql (S) Negative Normal Negative [facility] Comment on above: Order Comment: Speci men Type: BLOOD SPECIMENOrdering Facility: [facility] Address: [address] [place] [address] Performed By: #### 3 1201-7, 53342-8, AHAVG, 5-3, 28288-8 ####[facility] LABIA [id number] [address] [place] HCV Ab Ser Qlon 11-13-2024 HCV Ab Ql (S) Negative Normal Negative [facility] Comment on above: Order Comment: Speci men Type: BLOOD SPECIMENOrdering Facility: [facility] Address: [address] [place] [address] Result Comment: The result suggests no evidence of infection with Hepatitis C virus. Should recent infection be suspected, repeat testing may be considered 4-6 weeks after this draw. Performed By: #### 1 6128-1 ####[facility] LABIA [id number] [address] [place] HEPATITIS A ANTIBODY, IGGon 11-13-2024 HAV IgG Ql (S) Negative Normal [facility] Comment on above: Order Comment: Speci men Type: BLOOD SPECIMENOrdering Facility: [facility] Address: [address] [place] [address] Result Comment: No s erological evidence of past exposure to hepatitis A virus or hepatitis A vaccination. Should recent infection be suspected, repeat testing is suggested 3-4 weeks after this draw. Performed By: #### 3 1201-7, 76191-3, AHAVG, 5-3, 09777-0 ####[facility] LABCLIA [id number] [place] [id number] [place] Performed By: #### 7 3752-8, AHAVG, STRJAYESH, MUMPSG ####[facility] LABCLIA [id number] [place] [address] [place] HIV 1+2 Ab IA Qlon 5 HIV 1 and 2 Ab IA.rapid Nom (S/P/Bld) Normal [facility] Comment on above: Order Comment: Speci men Type: BLOOD SPECIMENOrdering Facility: [facility] Address: [address] [place] [address] Result Comment: Test not indicated. Performed By: #### 3 1201-7, 37680-6, AHAKHUSHBOO, 5195-3, 75040-8 ####[facility] LABCLIA [id number] [place] [address] [place] HIV 1+2 Ab+HIV1 p24 Ag IA Ql Non-Reactive Normal Nonreactive [facility] Comment on above: Order Comment: Speci men Type: BLOOD SPECIMENOrdering Facility: [facility] Address: [address] [place] [address] Performed By: #### 3 1201-7, 87766-2, AHAKHUSHBOO, 5195-3, 04461-6 ####[facility] LABCLIA [id number] [place] [address] [place] HIV immunoassay testing algorithm interpretation (S/P/Bld) [Interp] Normal [facility] Comment on above: Order Comment: Speci men Type: BLOOD SPECIMENOrdering Facility: [facility] Address: [address] [place] [address] Result Comment: No e vidence of HIV-1 or HIV-2 infection. Should recent infection be suspected, repeat testing may be considered 2-3 weeks after this draw.[place] Rev. Code 3701.243(E): This information has been [...] or diagnoses. Performed By: #### 3 1201-7, 25586-8, AHAVG, 5195-3, 02501-9 ####[facility] LABCLIA [id number] [facility] [place] [id number] [place] Hepatic function 2000 panelo n 11-13-2024 Albumin [Mass/Vol] 2.8 g/dL Low 3.9-4.9 [facility] Comment on above: Order Comment: Speci men Type: BLOOD SPECIMENOrdering Facility: [facility] Address: [address] [place] [address] Performed By: #### 2 4321-2, 55285-2, 24098-9, 01402-5 ####[facility] LABCLIA [id number] [place] [address] [place] ALP [Catalytic activity/Vol] 225 U/L High 38-113 [facility] Comment on above: Order Comment: Speci men Type: BLOOD SPECIMENOrdering Facility: [facility] Address: [address] [place] [address] Performed By: #### 2 4321-2, 79081-2, 71089-3, 63777-3 ####[facility] LABCLIA [id number] [place] [address] [place] ALT [Catalytic activity/Vol] 22 U/L Normal 10-54 [facility] Comment on above: Order Comment: Speci men Type: BLOOD SPECIMENOrdering Facility: [facility] Address: [address] [place] [address] Performed By: #### 2 4321-2, 69055-5, 22855-2, 07391-3 ####[facility] LABCLIA [id number] [place] [id number] [place] AST [Catalytic activity/Vol] 36 U/L Normal 14-40 [facility] Comment on above: Order Comment: Speci men Type: BLOOD SPECIMENOrdering Facility: [facility] Address: [address] [place] [address] Performed By: #### 2 4321-2, 79394-6, 15424-5, 90136-4 ####[facility] LABCLIA [id number] [place] [id number] [place] Bilirubin [Mass/Vol] 1.8 mg/dL High 0.2-1.3 [facility] Comment on above: Order Comment: Speci men Type: BLOOD SPECIMENOrdering Facility: [facility] Address: [address] [place] [address] Performed By: #### 2 4321-2, 98873-7, 46093-1, 55678-1 ####[facility] LABCLIA [id number] [place] [address] [place] Bilirubin.conjugated [Mass/Vol] 0.9 mg/dL High <0.3 [facility] Comment on above: Order Comment: Speci men Type: BLOOD SPECIMENOrdering Facility: [facility] Address: [address] [place] [address] Performed By: #### 2 4321-2, 05705-6, 27499-8, 16390-0 ####[facility] LABCLIA [id number] [place] [id number] [place] Protein [Mass/Vol] 5.2 g/dL Low 6.3-8.0 [facility] Comment on above: Order Comment: Speci men Type: BLOOD SPECIMENOrdering Facility: [facility] Address: [address] [place] [address] Performed By: #### 2 4321-2, 35783-9, 78480-5, 67441-0 ####[facility] LABCLIA [id number] [place] [id number] [place] LIVER REC INIT W/Uon 025 ALLOGEN RESULTS TO FOLLOW See Allogen report to follow Normal [facility] Comment on above: Order Comment: Speci men Type: BLOOD SPECIMENOrdering Facility: [facility] Address: [address] [place] [address] Performed By: #### L RIPW ####[facility]OR[facility]IESCLIA [id number] [place] [address] [place] LPa SerPl-mCncon 11-13-2024 Lipoprotein a [Mass/Vol] mg/dL Normal <30 [facility] Comment on above: Order Comment: Speci men Type: BLOOD SPECIMENOrdering Facility: [facility] Address: [address] [place] [address] Performed By: #### 1 0835-7 ####[facility] LABCLIA [id number] [place] [address] [place] Lipid 1996 panelon Cholesterol [Mass/Vol] 52 mg/dL Normal <200 [facility] Comment on above: Order Comment: Speci men Type: BLOOD SPECIMENOrdering Facility: [facility] Address: [address] [place] [address] Result Comment: <200 mg/dL, Desirable 200-239 mg/dL, Borderline high>239 mg/dL, High Performed By: #### 2 4321-2, 68148-6, 18185-0, 43455-5 ####[facility] LABCLIA [id number] [address] [place] Cholesterol in HDL [Mass/Vol] 17 mg/dL Low >39 [facility] Comment on above: Order Comment: Speci men Type: BLOOD SPECIMENOrdering Facility: [facility] Address: [address] [place] [address] Result Comment: 40-5 9 mg/dL, Acceptable>59 mg/dL, High: Negative risk factor for coronary heart disease<40 mg/dL, Low: Positive risk factor for coronary heart disease Performed By: #### 2 4321-2, 00082-5, 10954-2, 13671-8 ####[facility] LABCLIA [id number] [place] [id number] [place] Cholesterol in LDL [Mass/Vol] 26 mg/dL Normal <100 [facility] Comment on above: Order Comment: Speci men Type: BLOOD SPECIMENOrdering Facility: [facility] Address: [address] [place] [address] Result Comment: <100 mg/dL, Optimal 100-129 mg/dL, Near optimal/above optimal 130-159 mg/dL, Borderline high 160-189 mg/dL, High>189 mg/dL, Very highSecondary prevention optimal LDL Cholesterol levels are recommended to be < 70 mg/dL Performed By: #### 2 4321-2, 19461-1, 27737-5, 66293-4 ####[facility] LABCLIA [id number] [place] [address] [place] Cholesterol in LDL/Cholesterol in HDL [Mass ratio] 1.53 {ratio} Normal <2.54 [facility] Comment on above: Order Comment: Speci men Type: BLOOD SPECIMENOrdering Facility: [facility] Address: [address] [place] [address] Result Comment: Refe kristice:1. National Cholesterol Education Program ATP III Guideline At-A-Glance Quick Desk Reference: National Heart, Lung, and Blood [place]. National Institutes of Health. 2001: NIH Publication No. 01-3305.2. An International Atherosclerosis Society position paper: global recommendations for the management of dyslipidemia: executive summary, Atherosclerosis. 2014: 232(2):410-413. Performed By: #### 2 4321-2, 10400-3, 47370-4, 58070-7 ####[facility] LABCLIA [id number] [place] [id number] [place] Cholesterol in VLDL [Mass/Vol] 9 mg/dL Normal <30 [facility] Comment on above: Order Comment: Speci men Type: BLOOD SPECIMENOrdering Facility: [facility] Address: [address] [place] [address] Performed By: #### 2 4321-2, 04574-1, 22589-0, 46297-5 ####[facility] LABCLIA [id number] [address] [place] [address] [place] Cholesterol non HDL [Mass/Vol] 35 mg/dL Normal <130 [facility] Comment on above: Order Comment: Speci men Type: BLOOD SPECIMENOrdering Facility: [facility] Address: [address] [place] [address] Result Comment: <130 mg/dL, Optimal 130-159 mg/dL, Near optimal/above optimal 160-189 mg/dL, Borderline high 190-219 mg/dL, High>219 mg/dL, Very highSecondary prevention optimal non HDL Cholesterol levels are recommended to be <100 mg/dL Performed By: #### 2 4321-2, 55389-7, 37668-5, 22595-2 ####[facility] LABIA [id number] [address] [place] [address] [place] Cholesterol.total/Donna sterol in HDL [Mass ratio] 3.06 {ratio} Normal <5.10 [facility] Comment on above: Order Comment: Speci men Type: BLOOD SPECIMENOrdering Facility: [facility] Address: [address] [place] [address] Performed By: #### 2 4321-2, 12629-9, 41494-7, 90453-3 ####[facility] LABCLIA [id number] [address] [place] [address] [place] FASTING TIME 4 hrs Normal [facility] Comment on above: Order Comment: Speci men Type: BLOOD SPECIMENOrdering Facility: [facility] Address: [address] [place] [address] Performed By: #### 2 4321-2, 82878-8, 25578-0, 20634-4 ####[facility] LABCLIA [id number] [address] [place] [address] [place] Triglyceride [Mass/Vol] 45 mg/dL Normal <150 [facility] Comment on above: Order Comment: Speci men Type: BLOOD SPECIMENOrdering Facility: [facility] Address: [address] [place] [address] Result Comment: <150 mg/dL, Normal 150-199 mg/dL, Borderline high 200-499 mg/dL, High>499 mg/dL, Very high Performed By: #### 2 4321-2, 67992-8, 33089-4, 82046-1 ####[facility] LABCLIA [id number] [place] [address] [place] MUMPS IGG ABon 11-13-2024 MuV IgG Ql (S) Negative Abnormal Positive [facility] Comment on above: Order Comment: Speci men Type: BLOOD SPECIMENOrdering Facility: [facility] Address: [address] [place] [address] Result Comment: The result suggests no history of Mumps vaccination or exposure to Mumps virus, however, some individuals with past history of Mumps vaccination may test negative using this test. Please correlate with past history of vaccination if applicable. Performed By: #### 7 3752-8, AHAVG, STRSER, MUMPSG ####[facility] LABCLIA [id number] [place] [address] [place] NT-proBNP [facility] 11-13 Natriuretic peptide.B prohormone N-Terminal [Mass/Vol] 1047 pg/mL High <125 [facility] Comment on above: Order Comment: Speci men Type: BLOOD SPECIMENOrdering Facility: [facility] Address: [address] [place] [address] Performed By: #### 2 4321-2, 60424-9, 04979-6, 40597-0 ####[facility] LABCLIA [id number] [address] [address] [place] NURSING PROGon 11-13-2024 NURSING PROG Normal [facility] NURSING PROG Normal [facility] PHOSPHATIDYLETHANOL (PETH)on 11-13-2024 EER PETH See Note Normal [facility] Comment on above: Order Comment: Speci men Type: BLOOD SPECIMENOrdering Facility: [facility] Address: [address] [place] [address] Result Comment: Auth orized individuals can access the Kii Enhanced Reportwith an Kii Connect account using the following link.Your local lab can assist you in obtaining the patientreport if you don't have a Connect account.[email or web address] Performed By: #### P ETH ####[facility] [employer] SystemsCLIA [id number] [place] [address] PETH 16:0/18.2 (PLPETH) <10 [facility] Comment on above: Order Comment: Speci men Type: BLOOD SPECIMENOrdering Facility: [facility] Address: [address] [place] [address] Result Comment: Refe rence ranges are not well established. Performed By: #### P ETH ####[employer] SystemsCLIA [id number] [place] [address] PETH 16:0/18:1 (POPETH) <10 [facility] Comment on above: Order Comment: Speci men Type: BLOOD SPECIMENOrdering Facility: [facility] Address: [address] [place] [address] Result Comment: PEth 16:0/18:1 (POPEth)Less than 10 ng/mL............Not detectedLess than 20 ng/mL............Abstinence or light [id number] - 200 ng/mL................Moderate alcohol consumptionGreater than 200 ng/mL........Heavy alcohol consumption or chronicalcohol use(Reference: Alonso Landaverde and Mathew Ha 2018 J. Forensic Sci) Performed By: #### P ETH ####[facility] LABORATORIESCLIA [id number] [place] [address] PETH INTERPRETATION See Comment Normal [facility] Comment on above: Order Comment: Speci men Type: BLOOD SPECIMENOrdering Facility: [facility] Address: [address] [place] [address] Result Comment: Phos phatidylethanol (PEth) is a [...] was developed and its performance characteristicsdetermined by [employer]. It has not been cleared orapproved by the U.S. Food and Drug Administration. This test wasperformed in a CLIA-certified laboratory and is intended forclinical purposes.Performed By: [facility] [place], [place] [address]Qlbvtohpwf Director: Lizandro Ordonez MD, PhDCLIA Number: [id number] Performed By: #### P ETH ####[facility] [employer]rent Energy SystemsIA [id number] [place] [address] PT panel Coag (PPP)on 2024 INR Coag (PPP) [Relative time] 1.9 {INR} High 0.9-1.3 [facility] Comment on above: Order Comment: Speci men Type: BLOOD SPECIMENOrdering Facility: [facility] Address: [address] [place] [address] Result Comment: Saarh min K Antagonist (VKA) Therapeutic Range: INR 2 to 3 (Target INR of 2.5)Note: For patients treated with VKA drugs, such as warfarin, the [place] [employer] 2012 Guideline recommends [...] al. Chest 2012, 141:7S-47SNishbethel RA, et al. [facility] 2017, 70: 252-289 Performed By: #### 3 4528-0, 3255-7 ####[facility] [id number] [place] [id number] [place] PT Coag (PPP) [Time] 19.9 s High 9.7-13.0 [facility] Comment on above: Order Comment: Speci men Type: BLOOD SPECIMENOrdering Facility: [facility] Address: [address] [place] [address] Performed By: #### 3 4528-0, 3255-7 ####[facility] [id number] [place] [id number] [place] Pathology biopsy report Marco Antonio (Tiss)on 11-13-2024 AP DISCLAIMER Normal [facility] Comment on above: Order Comment: Ezekiel ramirez Type: TISSUE SPECIMENOrdering Facility: [facility] Address: [address] [place] [address] Result Comment: Shellie Fox Test (LDT) Disclaimer:Performance characteristics of immunohistochemical, immunofluorescent, and chromogenic in-situ hybridization tests have been determined by the performing laboratory within [facility]'s Thai Jackie Nuno Pathology and Laboratory Medicine Department ([facility], [facility], [facility], [facility], [facility], [facility], or [facility]) in a manner consistent with CLIA [...] Performed By: #### 6 6121-5 ####[facility]ORATORYCLIA [id number] [address] LABCLIA [id number] [address] CASE REPORT Normal [facility] Comment on above: Order Comment: Speci men Type: TISSUE SPECIMENOrdering Facility: [facility] Address: [address] [place] [address] Result Comment: Surg [facility] Pathology Report Case: [id number] Provider: Thai Pineda MD Collected: 11/13/2024 09:40 AMOrdering Location: [place] [address] Received: 11/15/2024 03:18 PMPathologist: Axel Berger MDSpecimen: Esophagus, Biopsy, r/o esophageal candidiasis Performed By: #### 6 6121-5 ####[facility]OR[facility]ORYCLIA [id number] [address] LABCLIA [id number] [address] FINAL DIAGNOSIS Normal [facility] Comment on above: Order Comment: Speci men Type: TISSUE SPECIMENOrdering Facility: [facility] Address: [address] [place] [address] Result Comment: Esop hagus, biopsy:- Squamous mucosal candidiasis.JEL 11/16/2024 at 1034 EDT Performed By: #### 6 6121-5 ####[facility]ORATORYCLIA [id number] [address] LABCLIA [id number] [place] [address] [place] FINAL PERFORMING LAB Normal [facility] Comment on above: Order Comment: Speci men Type: TISSUE SPECIMENOrdering Facility: [facility] Address: [address] [place] [address] Result Comment: Diag nostic interpretation performed at: [facility], [address] [place] [id number] CLIA# [id number] Director: Rick Harris MD Performed By: #### 6 6121-5 ####[facility]ORYCLIA [id number] [address] LABCLIA [id number] [address] OF [facility] GROSS DESCRIPTION Normal [facility] Comment on above: Order Comment: Speci men Type: TISSUE SPECIMENOrdering Facility: [facility] Address: [address] [place] [address] Result Comment: A. E cathyagus, BiopsyReceived in formalin are multiple pieces of espitia, soft tissue aggregating to 0.9 x 0.2 x 0.2 cm. Totally submitted in one cassette.BC November 15, 2024 4:50 PMGross examination performed at [facility], [address] [place] [address] Performed By: #### 6 6121-5 ####[facility]ORYCLIA [id number] [address] LABCLIA [id number] [place] [address] [place] Phosphate SerPl-mCncon 11-13 Phosphate [Mass/Vol] 1.5 mg/dL Low 2.7-4.8 [facility] Comment on above: Order Comment: Speci men Type: BLOOD SPECIMENOrdering Facility: [facility] Address: [address] [place] [address] Performed By: #### 2 777-1, 3016-3 ####[facility] LABCLIA [id number] [place] [address] [place] RUBEOLA (MEASLES)IGGon 11-13 MEASLES IGG AB, QUAL Positive Normal Positive [facility] Comment on above: Order Comment: Speci men Type: BLOOD SPECIMENOrdering Facility: [facility] Address: [address] [place] [address] Result Comment: The result suggests recent or past exposure to Measles virus or Measles vaccination. The current test does not detect neutralizing antibodies. Positive result may also be seen due to presence of passively-transferred antibodies. Please correlate with patient's history. Performed By: #### 7 852-7, MEASLG, VZVG2, 1988- ####[facility] LABCLIA [id number] [place] [address] [place] Reagin and Treponema pallidu m IgG and IgM [Interp]on 11-13-2024 T. pallidum IgG+IgM IA Ql (S) Non-Reactive Normal Nonreactive [facility] Comment on above: Order Comment: Speci men Type: BLOOD SPECIMENOrdering Facility: [facility] Address: [address] [place] [address] Performed By: #### 7 3752-8, AHAVG, STRSER, MUMPSG ####[facility] LABIA [id number] [place] [address] [place] Reagin+T pallidum IgG+IgM Se rPl-Impon 11-13-2024 Reagin and Treponema pallidum IgG and IgM [Interp] Cannot exclude recent Treponemal infection if specimen collected within 7-10 days after appearance of suspect lesions or 2-3 weeks after an exposure. Clinical correlation is required. Normal [facility] Comment on above: Order Comment: Speci men Type: BLOOD SPECIMENOrdering Facility: [facility] Address: [address] [place] [address] Performed By: #### 7 3752-8, SHMUEL SORENSEN MUMPSG ####[facility] LABCLIA [id number] [place] [address] [place] STAPHYLOCOCCUS AUREUS AND MR SA SCREEN, PCR, NASALon 11-13-2024 S. aureus and MRSA panel ANANTH+probe (Nose) Not detected Normal Not Detected [facility] Comment on above: Order Comment: Speci men Type: SWABOrdering Facility: [facility] Address: [address] [place] [address] Performed By: #### S APCR ####[facility] LABCLIA [id number] [address] [place] STRONGYLOIDES IGG BLon 11-13 STRONGYLOIDES IGG QUALITATIVE Negative Normal Negative [facility] Comment on above: Order Comment: Speci men Type: BLOOD SPECIMENOrdering Facility: [facility] Address: [address] [place] [address] Performed By: #### S TRSER ####[facility] LABIA [id number] [address] [place] Performed By: #### 7 3752-8, AHAVG STRSER, MUMPSG ####[facility] LABCLIA [id number] [address] [place] T. gondii IgG Qn (S)on 11-13 TOXO IGG QUAL Negative Normal Negative [facility] Comment on above: Order Comment: Speci men Type: BLOOD SPECIMENOrdering Facility: [facility] [facility] Address: [address] [place] [address] Result Comment: No s erological evidence of past exposure to Toxoplasma gondii. Cannot exclude recent infection if the specimen collected within 3-4 weeks after infection. Performed By: #### 8 039-0, 7885-7 ####[facility] LABCLIA [id number] [place] [address] [place] THERAPY NTon 11-13-2024 THERAPY NT Normal [facility] TOXICOLOGY PANEL BLDon 11-13 Acetaminophen [Mass/Vol] ug/mL Low 10-30 [facility] Comment on above: Order Comment: Ezekiel ramirez Type: BLOOD SPECIMENOrdering Facility: [facility] Address: [address] [place] [address] Result Comment: Toxi c > 150 ug/mL 4 hours post ingestionThe Viviana Figueroa nomogram can be used to estimate the probability of hepatotoxicity via the relationship of plasma acetaminophen concentration to the post ingestion interval. (Skylar. Pediatrics. 1975. 55:871 to 876 and Viviana et al. Arch Ramp Agent Med. 1981. 141:380 to 385).Reference ranges and high/low indicator flags are provided as general guidelines only. The treating physician must determine appropriate target levels/dosing based on the specific clinical situation. Performed By: #### T OXP ####[facility] LABCLIA [id number] [place] [address] [place] Ethanol [Mass/Vol] mg/dL Normal <11 [facility] Comment on above: Order Comment: Ezekiel ramirez Type: BLOOD SPECIMENOrdering Facility: [facility] Address: [address] [place] [address] Performed By: #### T OXP ####[facility] LABCLIA [id number] [place] [address] [place] Salicylates [Mass/Vol] mg/dL Low 3.0-30.0 [facility] Comment on above: Order Comment: Ezekiel ramirez Type: BLOOD SPECIMENOrdering Facility: [facility] Address: [address] [place] [address] Result Comment: The therapeutic range varies and has been reported to be 3.0 to 10.0 mg/dL for anti pyretic/analgesic conditions and 15.0 to 30.0 mg/dL for anti inflammatory/rheumatic fever conditions. Ranges published by the instrument meters superintendent.Reference ranges and high/low indicator flags are provided as general guidelines only. The treating physician must determine appropriate target levels/dosing based on the specific clinical situation. Performed By: #### T OXP ####[facility] LABCLIA [id number] [place] [address] [place] TSH SerPl-aCncon 11-13-2024 TSH Qn 0.633 m[IU]/L Normal 0.270-4.200 [facility] Comment on above: Order Comment: Ezekiel ramirez Type: BLOOD SPECIMENOrdering Facility: [facility] Address: [address] [place] [address] Performed By: #### 2 777-1, 3016-3 ####[facility] LABCLIA [id number] [place] [address] [place] Upper GI endoscopyon 025 Upper GI endoscopy Normal [facility] VARICELLA ZOSTER IGGon 11-13 VARICELLA ZOSTER IGG, QUAL Positive Normal Positive [facility] Comment on above: Order Comment: Ezekiel ramirez Type: BLOOD SPECIMENOrdering Facility: [facility] Address: [address] [place] [address] Result Comment: The result suggests recent or past exposure to Varicella-Zoster virus or chickenpox vaccination or zoster vaccination. Positive result may also be seen due to presence of passively-transferred antibodies. Please correlate with patient's history. Performed By: #### 7 852-7, MEASLG, VZVG2, 1988- ####[facility] LABCLIA [id number] [place] [address] [place] Vit A SerPl-mCncon 5 Retinol [Mass/Vol] 0.03 mg/L Low 0.30-1.20 [facility] Comment on above: Order Comment: Ezekiel ramirez Type: BLOOD SPECIMENOrdering Facility: [facility] Address: [address] [place] [address] Result Comment: This test was developed, and its performance characteristics determined by the [facility] Department of Pathology and Laboratory Medicine. It has not been cleared or approved by the FDA. The [facility] Department of Pathology and Laboratory Medicine is regulated under CLIA as qualified to perform high-complexity testing. This test is used for clinical purposes. It should not be regarded as investigational or for research. Performed By: #### 2 923-1, 1823-4 ####[facility] [id number] [place] [address] [place] Zinc SerPl-mCncon 11-13-2024 Zinc [Mass/Vol] 60 ug/dL Normal 60-120 [facility] Comment on above: Order Comment: Speci men Type: BLOOD SPECIMENOrdering Facility: [facility] Address: [address] [place] [address] Result Comment: This test was developed, and its performance characteristics determined by the [facility] Department of Pathology and Laboratory Medicine. It has not been cleared or approved by the FDA. The [facility] Department of Pathology and Laboratory Medicine is regulated under CLIA as qualified to perform high-complexity testing. This test is used for clinical purposes. It should not be regarded as investigational or for research. Performed By: #### 5 763-8 ####[facility] [id number] [address] [place] AFP SerPl-mCncon 11-12-2024 AFP [Mass/Vol] 2.25 ng/mL Normal <9.00 [facility] Comment on above: Order Comment: Meggani james Type: BLOOD SPECIMENOrdering Facility: [facility] Address: [address] [place] [address] Result Comment: The Alpha-Fetoprotein test was performed using the IntelliChem DxI immunoenzymatic assay. Results obtained with different assay methods or kits cannot be used interchangeably. Performed By: #### 1 834-1 ####[facility] [id number] [place] [address] [place] ARTERIAL BLOOD GASESon 11-12 Base deficit (BldA) [Moles/Vol] -8 mmol/L Low -2-0 [facility] Comment on above: Order Comment: Speci men Type: ARTERIAL BLOOD SPECIMENOrdering Facility: [facility] Address: [address] [place] [address] Performed By: #### A LLBG ####[facility] [id number] [place] [address] [place] Body temperature 98.6 [degF] Normal [facility] Comment on above: Order Comment: Speci men Type: ARTERIAL BLOOD SPECIMENOrdering Facility: [facility] Address: [address] [place] [address] Performed By: #### A LLBG ####[facility] [id number] [place] [address] [place] Calcium.ionized (Bld) [Mass/Vol] 1.20 mmol/L Normal 1.08-1.30 [facility] Comment on above: Order Comment: Speci men Type: ARTERIAL BLOOD SPECIMENOrdering Facility: [facility] Address: [address] [place] [address] Performed By: #### A LLBG ####[facility] [id number] [place] [address] [place] Calcium.ionized adjusted to pH 7.4 (BldA) [Moles/Vol] 1.24 mmol/L Normal 1.08-1.30 [facility] Comment on above: Order Comment: Speci men Type: ARTERIAL BLOOD SPECIMENOrdering Facility: [facility] Address: [address] [place] [address] Performed By: #### A LLBG ####[facility] [id number] [place] [address] [place] Carboxyhemoglobin (BldA) [Mass fraction] 2.0 % Normal 0.0-2.0 [facility] Comment on above: Order Comment: Speci men Type: ARTERIAL BLOOD SPECIMENOrdering Facility: [facility] Address: [address] [place] [address] Result Comment: Carb oxyhemoglobin Reference Range for Smokers: 2.0-8.0% Performed By: #### A LLBG ####[facility] LABCLIA [id number] [facility] [address], [facility]95 [place] CO2 (Bld) [Partial pressure] 21 mm Hg Low 36-46 [facility] Comment on above: Order Comment: Speci men Type: ARTERIAL BLOOD SPECIMENOrdering Facility: [facility] Address: [address] [place] [address] Performed By: #### A LLBG ####[facility] LABCLIA [id number] [address], [place] [address] [place] Glucose [Mass/Vol] 276 mg/dL High 60-105 [facility] Comment on above: Order Comment: Speci men Type: ARTERIAL BLOOD SPECIMENOrdering Facility: [facility] Address: [address] [place] [address] Performed By: #### A LLBG ####[facility] LABCLIA [id number] [address], [place] [address] [place] HCO3 (Bld) [Moles/Vol] 15 mmol/L Low 22-26 [facility] Comment on above: Order Comment: Speci men Type: ARTERIAL BLOOD SPECIMENOrdering Facility: [facility] Address: [address] [place] [address] Performed By: #### A LLBG ####[facility] LABCLIA [id number] [place] [id number] [place] Hematocrit (Bld) [Volume fraction] 22.4 % Low 39.0-51.0 [facility] Comment on above: Order Comment: Speci men Type: ARTERIAL BLOOD SPECIMENOrdering Facility: [facility] Address: [address] [place] [address] Performed By: #### A LLBG ####[facility] LABCLIA [id number] [facility] [address], [facility]95 [place] Hemoglobin (Bld) [Mass/Vol] 7.2 g/dL Low 13.0-17.0 [facility] Comment on above: Order Comment: Speci men Type: ARTERIAL BLOOD SPECIMENOrdering Facility: [facility] Address: [address] [place] [address] Performed By: #### A LLBG ####[facility] LABCLIA [id number] [address] [address] [place] Lactate [Moles/Vol] 2.9 mmol/L High 0.5-2.2 [facility] Comment on above: Order Comment: Speci men Type: ARTERIAL BLOOD SPECIMENOrdering Facility: [facility] Address: [address] [place], [place] [address] Performed By: #### A LLBG ####[facility] LABIA [id number] [place] [id number] [place] Methemoglobin (Bld) [Mass fraction] 1.0 % Normal 0.0-1.5 [facility] Comment on above: Order Comment: Speci men Type: ARTERIAL BLOOD SPECIMENOrdering Facility: [facility] Address: [address] [place] [address] Performed By: #### A LLBG ####[facility] LABIA [id number] [place] [id number] [place] O2 THERAPY RA=Room Air Normal [facility] Comment on above: Order Comment: Speci men Type: ARTERIAL BLOOD SPECIMENOrdering Facility: [facility] Address: [address] [place], [place] [address] Performed By: #### A LLBG ####[facility] LABCLIA [id number] [address] [address] [place] Oxygen (Bld) [Partial pressure] 94 mm Hg Normal 85-95 [facility] Comment on above: Order Comment: Speci men Type: ARTERIAL BLOOD SPECIMENOrdering Facility: [facility] Address: [address] [place], [place] [address] Performed By: #### A LLBG ####[facility] LABCLIA [id number] [address] [address] [place] Oxyhemoglobin (BldA) [Mass fraction] 96 % Normal 95-98 [facility] Comment on above: Order Comment: Speci men Type: ARTERIAL BLOOD SPECIMENOrdering Facility: [facility] Address: [address] [place], [place] [address] Performed By: #### A LLBG ####[facility] LABCLIA [id number] [address] [address] [place] pH (Bld) 7.46 [pH] High 7.35-7.45 [facility] Comment on above: Order Comment: Speci men Type: ARTERIAL BLOOD SPECIMENOrdering Facility: [facility] Address: [address] [place] [address] Performed By: #### A LLBG ####[facility] LABCLIA [id number] [place] [address] [place] PO2 / FIO2 RATIO 448 mmHg Normal >300 [facility] Comment on above: Order Comment: Speci men Type: ARTERIAL BLOOD SPECIMENOrdering Facility: [facility] Address: [address] [place] [address] Performed By: #### A LLBG ####[facility] LABCLIA [id number] [address] [address] [place] Potassium [Moles/Vol] 3.9 mmol/L Normal 3.5-5.0 [facility] Comment on above: Order Comment: Speci men Type: ARTERIAL BLOOD SPECIMENOrdering Facility: [facility] Address: [address] [place] [address] Performed By: #### A LLBG ####[facility] LABCLIA [id number] [place] [id number] [place] Sodium [Moles/Vol] 124 mmol/L Low 136-144 [facility] Comment on above: Order Comment: Speci men Type: ARTERIAL BLOOD SPECIMENOrdering Facility: [facility] Address: [address] [place] [address] Performed By: #### A LLBG ####[facility] LABCLIA [id number] [address] [place] [address] [place] Bacteria Ur Culton Bacteria identified Cx Nom (U) Normal [facility] Comment on above: Performed By: #### 6 30-4, 29050-3 ####[facility] LABCLIA [id number] [address] [place] [address] [place] Basic metabolic 2000 panelon 11-12-2024 Anion gap [Moles/Vol] 11 mmol/L Normal 8-15 [facility] Comment on above: Order Comment: Speci men Type: BLOOD SPECIMENOrdering Facility: [facility] Address: [address] [place] [address] Performed By: #### 2 4321-2, 85067-9, 2777-1 ####[facility] LABCLIA [id number] [address], [facility]95 [place] Calcium [Mass/Vol] 9.2 mg/dL Normal 8.5-10.2 [facility] Comment on above: Order Comment: Speci men Type: BLOOD SPECIMENOrdering Facility: [facility] Address: [address] [place] [address] Performed By: #### 2 4321-2, 35107-0, 2777-1 ####[facility] LABCLIA [id number] [address], [facility]95 [place] Chloride [Moles/Vol] 99 mmol/L Normal 98-107 [facility] Comment on above: Order Comment: Speci men Type: BLOOD SPECIMENOrdering Facility: [facility] Address: [address] [place] [address] Performed By: #### 2 4321-2, 29568-7, 2777-1 ####[facility] LABCLIA [id number] [place] [address] [place] CO2 [Moles/Vol] 14 mmol/L Low 22-30 [facility] Comment on above: Order Comment: Speci men Type: BLOOD SPECIMENOrdering Facility: [facility] Address: [address] [place] [address] Performed By: #### 2 4321-2, 80888-1, 2777-1 ####[facility] LABCLIA [id number] [place] [address] [place] Creatinine [Mass/Vol] 1.22 mg/dL Normal 0.73-1.22 [facility] Comment on above: Order Comment: Speci men Type: BLOOD SPECIMENOrdering Facility: [facility] Address: [address] [place] [address] Performed By: #### 2 4321-2, 45537-3, 277- ####[facility] LABIA [id number] [place] [address] [place] Creatinine and Glomerular filtration rate.predicted panel (S/P/Bld) 69 mL/min/1.73m??? Normal >=60 [facility] Comment on above: Order Comment: Ezekiel ramirez Type: BLOOD SPECIMENOrdering Facility: [facility] Address: [address] [place] [address] Result Comment: Patric mated Glomerular Filtration Rate [...] actual GFR. Performed By: #### 2 4321-2, 20556-8, 2777-1 ####[facility] LABCLIA [id number] [place] [id number] [place] Glucose [Mass/Vol] 304 mg/dL High 74-99 [facility] Comment on above: Order Comment: Speci men Type: BLOOD SPECIMENOrdering Facility: [facility] Address: [address] [place], [place] [address] Result Comment: The [place] [employer] (ADA) provides guidance for cutoff [...] Standards of Medical Care in Diabetes 2016, [place] [employer]. Diabetes Care. 2016.39(Suppl 1). Performed By: #### 2 4321-2, 48490-6, 7- ####[facility] LABCLIA [id number] [place] [address] [place] Potassium [Moles/Vol] 4.3 mmol/L Normal 3.7-5.1 [facility] Comment on above: Order Comment: Ezekiel men Type: BLOOD SPECIMENOrdering Facility: [facility] Address: [address] [place] [address] Performed By: #### 2 4321-2, 45330-2, 2776-08 ####[facility] LABCLIA [id number] [place] [id number] [place] Sodium [Moles/Vol] 124 mmol/L Low 136-144 [facility] Comment on above: Order Comment: Meggani men Type: BLOOD SPECIMENOrdering Facility: [facility] Address: [address] [place], [place] [address] Performed By: #### 2 4321-2, 10836-5, 2776-08 ####[facility] LABCLIA [id number] [address] [address] [place] Urea nitrogen [Mass/Vol] 22 mg/dL Normal 9-24 [facility] Comment on above: Order Comment: Speci men Type: BLOOD SPECIMENOrdering Facility: [facility] Address: [address] [place] [address] Performed By: #### 2 4321-2, 31894-2, 2777-1 ####[facility] LABCLIA [id number] [address], [place] [address] [place] CASE MGT INIT ASSESon 2024 CASE MGT INIT ASSES Normal [facility] CBC panel Auto (Bld)on 11-12 Erythrocyte distribution width (RBC) [Ratio] 16.9 % High 11.5-15.0 [facility] Comment on above: Order Comment: Speci men Type: BLOOD SPECIMENOrdering Facility: [facility] Address: [address] [place] [address] Performed By: #### 5 8410-2 ####[facility] LABCLIA [id number] [address], [place] [address] [place] Hematocrit (Bld) [Volume fraction] 21.7 % Low 39.0-51.0 [facility] Comment on above: Order Comment: Speci men Type: BLOOD SPECIMENOrdering Facility: [facility] Address: [address] [place] [address] Performed By: #### 5 8410-2 ####[facility] LABCLIA [id number] [facility] [address], [place] [address] [place] Hemoglobin (Bld) [Mass/Vol] 7.5 g/dL Low 13.0-17.0 [facility] Comment on above: Order Comment: Speci men Type: BLOOD SPECIMENOrdering Facility: [facility] Address: [address] [place] [address] Performed By: #### 5 8410-2 ####[facility] LABCLIA [id number] [facility] [place] [id number] [place] MCH (RBC) [Entitic mass] 31.5 pg Normal 26.0-34.0 [facility] Comment on above: Order Comment: Speci men Type: BLOOD SPECIMENOrdering Facility: [facility] Address: [address] [place] [address] Performed By: #### 5 8410-2 ####[facility] LABIA [id number] [place] [address] [place] MCHC (RBC) [Mass/Vol] 34.6 g/dL Normal 30.5-36.0 [facility] Comment on above: Order Comment: Speci men Type: BLOOD SPECIMENOrdering Facility: [facility] Address: [address] [place] [address] Performed By: #### 5 8410-2 ####[facility] LABIA [id number] [place] [address] [place] MCV (RBC) [Entitic vol] 91.2 fL Normal 80.0-100.0 [facility] Comment on above: Order Comment: Speci men Type: BLOOD SPECIMENOrdering Facility: [facility] Address: [address] [place] [address] Performed By: #### 5 8410-2 ####[facility] LABIA [id number] [place] [address] [place] Nucleated RBC (Bld) [#/Vol] 10*3/uL Normal <0.01 [facility] Comment on above: Order Comment: Speci men Type: BLOOD SPECIMENOrdering Facility: [facility] Address: [address] [place] [address] Performed By: #### 5 8410-2 ####[facility] LABIA [id number] [place] [address] [place] Platelet mean volume (Bld) [Entitic vol] 10.8 fL Normal 9.0-12.7 [facility] Comment on above: Order Comment: Speci men Type: BLOOD SPECIMENOrdering Facility: [facility] Address: [address] [place] [address] Performed By: #### 5 8410-2 ####[facility] LABIA [id number] [place] [address] [place] Platelets (Bld) [#/Vol] 31 10*3/uL Low 150-400 [facility] Comment on above: Order Comment: Speci men Type: BLOOD SPECIMENOrdering Facility: [facility] Address: [address] [place] [address] Result Comment: Resu lts checked and verified.No clot detected. Performed By: #### 5 8410-2 ####[facility] [id number] [place] [address] [place] RBC (Bld) [#/Vol] 2.38 10*6/uL Low 4.20-6.00 [facility] Comment on above: Order Comment: Speci men Type: BLOOD SPECIMENOrdering Facility: [facility] Address: [address] [place] [address] Performed By: #### 5 8410-2 ####[facility] [id number] [place] [address] [place] WBC (Bld) [#/Vol] 6.35 10*3/uL Normal 3.70-11.00 [facility] Comment on above: Order Comment: Speci men Type: BLOOD SPECIMENOrdering Facility: [facility] Address: [address] [place] [address] Performed By: #### 5 8410-2 ####[facility] LABIA [id number] [place] [address] [place] Erythrocyte distribution width (RBC) [Ratio] 17.3 % High 11.5-15.0 [facility] Comment on above: Order Comment: Speci men Type: BLOOD SPECIMENOrdering Facility: [facility] Address: [address] [place] [address] Performed By: #### 5 8410-2 ####[facility] LABIA [id number] [place] [address] [place] Hematocrit (Bld) [Volume fraction] 22.9 % Low 39.0-51.0 [facility] Comment on above: Order Comment: Speci men Type: BLOOD SPECIMENOrdering Facility: [facility] Address: [address] [place] [address] Performed By: #### 5 8410-2 ####[facility] LABIA [id number] [place] [address] [place] Hemoglobin (Bld) [Mass/Vol] 7.9 g/dL Low 13.0-17.0 [facility] Comment on above: Order Comment: Speci men Type: BLOOD SPECIMENOrdering Facility: [facility] Address: [address] [place] [address] Performed By: #### 5 8410-2 ####[facility] LABIA [id number] [place] [address] [place] MCH (RBC) [Entitic mass] 31.5 pg Normal 26.0-34.0 [facility] Comment on above: Order Comment: Speci men Type: BLOOD SPECIMENOrdering Facility: [facility] Address: [address] [place] [address] Performed By: #### 5 8410-2 ####[facility] LABIA [id number] [place] [address] [place] MCHC (RBC) [Mass/Vol] 34.5 g/dL Normal 30.5-36.0 [facility] Comment on above: Order Comment: Speci men Type: BLOOD SPECIMENOrdering Facility: [facility] Address: [address] [place] [address] Performed By: #### 5 8410-2 ####[facility] LABIA [id number] [place] [address] [place] MCV (RBC) [Entitic vol] 91.2 fL Normal 80.0-100.0 [facility] Comment on above: Order Comment: Speci men Type: BLOOD SPECIMENOrdering Facility: [facility] Address: [address] [place] [address] Performed By: #### 5 8410-2 ####[facility] LABCLIA [id number] [place] [address] [place] Nucleated RBC (Bld) [#/Vol] 10*3/uL Normal <0.01 [facility] Comment on above: Order Comment: Speci men Type: BLOOD SPECIMENOrdering Facility: [facility] Address: [address] [place] [address] Performed By: #### 5 8410-2 ####[facility] LABIA [id number] [place] [address] [place] Platelet mean volume (Bld) [Entitic vol] 11.6 fL Normal 9.0-12.7 [facility] Comment on above: Order Comment: Speci men Type: BLOOD SPECIMENOrdering Facility: [facility] Address: [address] [place] [address] Performed By: #### 5 8410-2 ####[facility] LABIA [id number] [place] [address] [place] Platelets (Bld) [#/Vol] 33 10*3/uL Low 150-400 [facility] Comment on above: Order Comment: Speci men Type: BLOOD SPECIMENOrdering Facility: [facility] Address: [address] [place] [address] Result Comment: Resu lts checked and verified.No clot detected. Performed By: #### 5 8410-2 ####[facility] LABCLIA [id number] [place] [address] [place] RBC (Bld) [#/Vol] 2.51 10*6/uL Low 4.20-6.00 [facility] Comment on above: Order Comment: Speci men Type: BLOOD SPECIMENOrdering Facility: [facility] Address: [address] [place] [address] Performed By: #### 5 8410-2 ####[facility] LABCLIA [id number] [place] [address] [place] WBC (Bld) [#/Vol] 7.27 10*3/uL Normal 3.70-11.00 [facility] Comment on above: Order Comment: Speci men Type: BLOOD SPECIMENOrdering Facility: [facility] Address: [address] [place] [address] Performed By: #### 5 8410-2 ####[facility] LABCLIA [id number] [place] [address] [place] CITRATED PLATELET COUNTon CITRATED PLATELET COUNT (WAM) 33 k/uL Low 150-400 [facility] Comment on above: Order Comment: Speci men Type: BLOOD SPECIMENOrdering Facility: [facility] Address: [address] [place] [address] Result Comment: Plat elet count confirmed by manual review of peripheral blood smear. No clot detected. Performed By: #### C ITPLT ####[facility] LABCLIA [id number] [place] [address] [place] CNCNPATEDon 11-12-2024 CNCNPATED Normal [facility] CNPNon 11-12-2024 CNPN Normal [facility] CONFIRM BLOOD TYPEon 025 ABO O Normal [facility] Comment on above: Order Comment: Speci men Type: BLOOD SPECIMENOrdering Facility: [facility] Address: [address] [place] [address] Performed By: #### C ONABO ####[facility] BLO[facility] BANKCLIA [id number] [place] [address] [place] Rh Nom (Bld) Positive Normal [facility] Comment on above: Order Comment: Speci men Type: BLOOD SPECIMENOrdering Facility: [facility] Address: [address] [place] [address] Performed By: #### C ONAB ####[facility]ANK[facility] [id number] [place] [address] [place] CONSULTon 11-12-2024 CONSULT Normal [facility] CONSULT Normal [facility] CONSULT Normal [facility] CONSULT Normal [facility] CONSULT Normal [facility] CONSULT Normal [facility] CT CHEST WO IVCONon 11-13-19 CT CHEST WO IVCON Normal [facility] D dimer FEU PPP-mCncon 11-12 Fibrin D-dimer FEU (PPP) [Mass/Vol] 3850 ng/mL FEU High <500 [facility] Comment on above: Order Comment: Speci men Type: BLOOD SPECIMENOrdering Facility: [facility] Address: [address] [place] [address] Performed By: #### 4 8065-7 ####[facility] LABCLIA [id number] [place] [address] [place] ECHO WITH AGITATED SALINE CO NTRASTon 11-12-2024 ECHO WITH AGITATED SALINE CONTRAST Normal [facility] Fibrin D-dimer FEU (PPP) [Ma ss/Vol]on 11-12-2024 D DIMER AGE-RELATED CUTOFF 580 ng/mL FEU Normal [facility] Comment on above: Order Comment: Speci men Type: BLOOD SPECIMENOrdering Facility: [facility] Address: [address] [place] [address] Performed By: #### 4 8065-7 ####[facility] LABIA [id number] [place] [id number] [place] Hepatic function 2000 panelo n 11-12-2024 Albumin [Mass/Vol] 3.0 g/dL Low 3.9-4.9 [facility] Comment on above: Order Comment: Speci men Type: BLOOD SPECIMENOrdering Facility: [facility] Address: [address] [place] [address] Performed By: #### 2 4321-2, 19658-2, 2776-1 ####[facility] LABIA [id number] [place] [address] [place] ALP [Catalytic activity/Vol] 252 U/L High 38-113 [facility] Comment on above: Order Comment: Speci men Type: BLOOD SPECIMENOrdering Facility: [facility] Address: [address] [place] [address] Performed By: #### 2 4321-2, 51112-4, 2776- ####[facility] LABIA [id number] [place] [address] [place] ALT [Catalytic activity/Vol] 24 U/L Normal 10-54 [facility] Comment on above: Order Comment: Speci men Type: BLOOD SPECIMENOrdering Facility: [facility] Address: [address] [place] [address] Performed By: #### 2 4321-2, 83722-0, 2776- ####[facility] LABIA [id number] [place] [address] [place] AST [Catalytic activity/Vol] 41 U/L High 14-40 [facility] Comment on above: Order Comment: Speci men Type: BLOOD SPECIMENOrdering Facility: [facility] Address: [address] [place] [address] Performed By: #### 2 4321-2, 97471-0, 2776- ####[facility] LABIA [id number] [place] [id number] [place] Bilirubin [Mass/Vol] 1.8 mg/dL High 0.2-1.3 [facility] Comment on above: Order Comment: Speci men Type: BLOOD SPECIMENOrdering Facility: [facility] Address: [address] [place] [address] Performed By: #### 2 4321-2, 74708-4, 2776- ####[facility] LABCLIA [id number] [place] [address] [place] Bilirubin.conjugated [Mass/Vol] 0.9 mg/dL High <0.3 [facility] Comment on above: Order Comment: Speci men Type: BLOOD SPECIMENOrdering Facility: [facility] Address: [address] [place] [address] Result Comment: Resu lts may be falsely decreased due to interference from hemolysis. Suggest reorder as clinically indicated. Performed By: #### 2 4321-2, 42479-1, 277-1 ####[facility] LABCLIA [id number] [place] [address] [place] Protein [Mass/Vol] 5.5 g/dL Low 6.3-8.0 [facility] Comment on above: Order Comment: Speci men Type: BLOOD SPECIMENOrdering Facility: [facility] Address: [address] [place] [address] Performed By: #### 2 4321-2, 07682-8, 277-1 ####[facility] LABCLIA [id number] [place] [address] [place] MEDICAL EMERon 11-12-2024 MEDICAL KRISTINA Normal [facility] NURSING PROGon 11-12-2024 NURSING PROG Normal [facility] NURSING PROG Normal [facility] NURSING PROG Normal [facility] NURSING PROG Normal [facility] NUTRITIONon 11-12-2024 NUTRITION Normal [facility] PTT, ANTICOAGULANT THERAPYon 11-12-2024 aPTT Coag (PPP) [Time] 62.6 s High 23.0-32.4 [facility] Comment on above: Order Comment: Speci men Type: BLOOD SPECIMENOrdering Facility: [facility] Address: [address] [place] [address] Performed By: #### P TTAC ####[facility] LABIA [id number] [place] [id number] [place] Phosphate SerPl-mCncon 11-12 Phosphate [Mass/Vol] 2.3 mg/dL Low 2.7-4.8 [facility] Comment on above: Order Comment: Speci men Type: BLOOD SPECIMENOrdering Facility: [facility] Address: [address] [place] [address] Performed By: #### 2 4321-2, 81823-7, 2777-1 ####[facility] LABIA [id number] [place] [id number] [place] SOCIAL WORKon 11-12-2024 SOCIAL WORK Normal [facility] THERAPY NTon 11-12-2024 THERAPY NT Normal [facility] THERAPY NT Normal [facility] THROMBOGRAPH PANELon 025 Clot angle TEG (Bld) [Angle] 32.8 degrees Low 47.0-74.0 [facility] Comment on above: Order Comment: Speci men Type: BLOOD SPECIMENOrdering Facility: [facility] Address: [address] [place] [address] Performed By: #### T EGPNP ####[facility] [id number] [address] [place] Clot Lysis 30 Min post maximum clot amplitude TEG (Bld) [Length fraction] 0.0 % Normal 0.0-8.0 [facility] Comment on above: Order Comment: Speci men Type: BLOOD SPECIMENOrdering Facility: [facility] Address: [address] [place] [address] Performed By: #### T EGPNP ####[facility] LABIA [id number] [place] [id number] [place] Clotting time TEG (Bld) 5.0 minutes Normal 4.0-10.0 [facility] Comment on above: Order Comment: Speci men Type: BLOOD SPECIMENOrdering Facility: [facility] Address: [address] [place] [address] Performed By: #### T EGPNP ####[facility] LABIA [id number] [place] [address] [place] Coagulation index TEG Qn (Bld) -8.4 Low -4.6-3.2 [facility] Comment on above: Order Comment: Speci james Type: BLOOD SPECIMENOrdering Facility: [facility] Address: [address] [place] [address] Result Comment: This test was developed, and its performance characteristics determined by the [facility] Department of Pathology and Laboratory Medicine. It has not been cleared or approved by the FDA. The [facility] Department of Pathology and Laboratory Medicine is regulated under CLIA as qualified to perform high-complexity testing. This test is used for clinical purposes. It should not be regarded as investigational or for research. Performed By: #### T EGPNP ####[facility] LABIA [id number] [place] [address] [place] Maximum clot firmness TEG (Bld) [Length] 28.5 mm Low 51.0-75.0 [facility] Comment on above: Order Comment: Meggani james Type: BLOOD SPECIMENOrdering Facility: [facility] Address: [address] [place] [address] Performed By: #### T EGPNP ####[facility] LABIA [id number] [place] [address] [place] Thromboelastography after addtion of heparinase panel (Bld) Normal [facility] Comment on above: Order Comment: Meggani james Type: BLOOD SPECIMENOrdering Facility: [facility] Address: [address] [place] [address] Result Comment: A th romboelastograph (TEG) study [...] timely manner. Performed By: #### T EGPNP ####[facility] LABCLIA [id number] [place] [address] [place] TOXICOLOGY SCREEN, ROUTINE U RINEon 11-12-2024 Amphetamines Confirm (U) [Mass/Vol] Negative Normal Negative [facility] Comment on above: Order Comment: Speci men Type: URINE SPECIMENOrdering Facility: [facility] Address: [address] [place] [address] Result Comment: Cuto ff threshold at 1000 ng/mL. Performed By: #### U TOX2 ####[facility] LABIA [id number] [place] [address] [place] BARBITURATES, URINE Negative Normal Negative [facility] Comment on above: Order Comment: Speci men Type: URINE SPECIMENOrdering Facility: [facility] Address: [address] [place] [address] Result Comment: Cuto ff threshold at 200 ng/mL. Performed By: #### U TOX2 ####[facility] LABCLIA [id number] [place] [address] [place] BENZODIAZEPINES, UR Negative Normal Negative [facility] Comment on above: Order Comment: Speci men Type: URINE SPECIMENOrdering Facility: [facility] Address: [address] [place] [address] Result Comment: Cuto ff threshold at 200 ng/mL. Performed By: #### U TOX2 ####[facility] LABCLIA [id number] [address] [address] [place] Cannabinoids Screen Ql (U) Negative Normal Negative [facility] Comment on above: Order Comment: Speci men Type: URINE SPECIMENOrdering Facility: [facility] Address: [address] [place] [address] Result Comment: Cuto ff threshold at 50 ng/mL. Performed By: #### U TOX2 ####[facility] LABCLIA [id number] [place] [address] [place] Cocaine Ql (U) Negative Normal Negative [facility] Comment on above: Order Comment: Speci men Type: URINE SPECIMENOrdering Facility: [facility] Address: [address] [place] [address] Result Comment: Cuto ff threshold at 300 ng/mL. Performed By: #### U TOX2 ####[facility] LABCLIA [id number] [place] [address] [place] Ethanol (U) [Mass/Vol] <11 Normal <11 Cl [facility] Comment on above: Order Comment: Speci men Type: URINE SPECIMENOrdering Facility: [facility] Address: [address] [place] [address] Performed By: #### U TOX2 ####[facility] LABCLIA [id number] [place] [address] [place] Opiates Screen Ql (U) Negative Normal Negative [facility] Comment on above: Order Comment: Speci men Type: URINE SPECIMENOrdering Facility: [facility] Address: [address] [place] [address] Result Comment: Cuto ff threshold at 300 ng/mL. Performed By: #### U TOX2 ####[facility] LABCLIA [id number] [address] [address] [place] oxyCODONE cutoff Screen (U) [Mass/Vol] Positive Abnormal Negative [facility] Comment on above: Order Comment: Speci men Type: URINE SPECIMENOrdering Facility: [facility] Address: [address] [place] [address] Result Comment: Cuto ff threshold at 100 ng/mL. Performed By: #### U TOX2 ####[facility] LABCLIA [id number] [place] [address] [place] Phencyclidine Ql (U) Negative Normal Negative [facility] Comment on above: Order Comment: Speci men Type: URINE SPECIMENOrdering Facility: [facility] Address: [address] [place] [address] Result Comment: Cuto ff threshold at 25 ng/mL. Performed By: #### U TOX2 ####[facility] LABCLIA [id number] [place] [address] [place] TYPE + SCREENon 11-12-2024 ABO O Normal [facility] Comment on above: Order Comment: Speci men Type: BLOOD SPECIMENOrdering Facility: [facility] Address: [address] [place] [address] Performed By: #### T SCR ####[facility] BLOOD BANKCLIA [id number] [place] [address] [place] Rh Nom (Bld) Positive Normal [facility] Comment on above: Order Comment: Speci men Type: BLOOD SPECIMENOrdering Facility: [facility] Address: [address] [place] [address] Performed By: #### T SCR ####[facility] BLO[facility] BANKCLIA [id number] [place] [address] [place] TYPE AND SCREEN EXPIRATION 11/15/2024 23:59 Normal [facility] Comment on above: Order Comment: Speci men Type: BLOOD SPECIMENOrdering Facility: [facility] Address: [address] [place] [address] Performed By: #### T SCR ####[facility] BLOOD BANKCLIA [id number] [place] [address] [place] Urinalysis complete panel (U )on 11-12-2024 BACTERIA UL 1553.2 uL High Negative [facility] Comment on above: Order Comment: Speci men Type: URINE SPECIMENOrdering Facility: [facility] Address: [address] [place] [address] Performed By: #### 6 30-4, 35510-9 ####[facility] LABCLIA [id number] [place] [address] [place] Bilirubin Ql (U) 1+ Abnormal Negative [facility] Comment on above: Order Comment: Speci men Type: URINE SPECIMENOrdering Facility: [facility] Address: [address] [place] [address] Result Comment: Sugg est correlation with clinical findings and serum bilirubin if clinically indicated. Performed By: #### 6 30-4, 19259-9 ####[facility] LABCLIA [id number] [place] [address] [place] Clarity (Unsp spec) Cloudy Abnormal Clear [facility] Comment on above: Order Comment: Speci men Type: URINE SPECIMENOrdering Facility: [facility] Address: [address] [place] [address] Performed By: #### 6 30-4, 76887-4 ####[facility] LABCLIA [id number] [place] [id number] [place] Color (U) [place] Abnormal Yellow [facility] Comment on above: Order Comment: Speci men Type: URINE SPECIMENOrdering Facility: [facility] Address: [address] [place] [address] Performed By: #### 6 30-4, 87480-2 ####[facility] LABCLIA [id number] [place] [id number] [place] Epithelial cells LM.HPF (Urine sed) [#/Area] None Seen Normal [facility] Comment on above: Order Comment: Speci men Type: URINE SPECIMENOrdering Facility: [facility] Address: [address] [place] [address] Performed By: #### 6 30-4, 95001-1 ####[facility] LABCLIA [id number] [place] [id number] [place] Glucose Test strip (U) [Mass/Vol] Negative Normal Negative [facility] Comment on above: Order Comment: Speci men Type: URINE SPECIMENOrdering Facility: [facility] Address: [address] [place] [address] Performed By: #### 6 30-4, 05919-7 ####[facility] LABCLIA [id number] [place] [address] [place] Hemoglobin Ql (U) 3+ Abnormal Negative [facility] Comment on above: Order Comment: Speci men Type: URINE SPECIMENOrdering Facility: [facility] Address: [address] [place] [address] Performed By: #### 6 30, 39650-2 ####[facility] LABCLIA [id number] [place] [address] [place] Hyaline casts (Urine sed) [#/Area] 0 /[LPF] Normal 0 /LPF [facility] Comment on above: Order Comment: Speci men Type: URINE SPECIMENOrdering Facility: [facility] Address: [address] [place] [address] Performed By: #### 6 30-4, 30666-8 ####[facility] LABCLIA [id number] [place] [id number] [place] Ketones Ql (U) Negative Normal Negative [facility] Comment on above: Order Comment: Speci men Type: URINE SPECIMENOrdering Facility: [facility] Address: [address] [place] [address] Performed By: #### 6 30-4, 55910-0 ####[facility] LABCLIA [id number] [address], [place] [address] [place] Leukocyte esterase Test strip Ql (U) 2+ Abnormal Negative [facility] Comment on above: Order Comment: Speci men Type: URINE SPECIMENOrdering Facility: [facility] Address: [address] [place] [address] Performed By: #### 6 30-4, 20159-2 ####[facility] LABCLIA [id number] [address], [place] [address] [place] Nitrite Ql (U) Negative Normal Negative [facility] Comment on above: Order Comment: Speci men Type: URINE SPECIMENOrdering Facility: [facility] Address: [address] [place] [address] Performed By: #### 6 30-4, 08887-0 ####[facility] LABIA [id number] [address], [place] [address] [place] pH (U) 6.0 [pH] Normal <8.5 [facility] Comment on above: Order Comment: Speci men Type: URINE SPECIMENOrdering Facility: [facility] Address: [address] [place] [address] Performed By: #### 6 30-4, 99005-2 ####[facility] LABCLIA [id number] [address], [facility] [place] Protein (U) [Mass/Vol] 3+ Abnormal Negative Cl [facility] Comment on above: Order Comment: Speci men Type: URINE SPECIMENOrdering Facility: [facility] Address: [address] [place] [address] Performed By: #### 6 30-4, 49631-7 ####[facility] LABCLIA [id number] [address], [facility]95 [place] RBC LM.HPF (Urine sed) [#/Area] /[HPF] Abnormal 0-2 /HPF [facility] Comment on above: Order Comment: Speci men Type: URINE SPECIMENOrdering Facility: [facility] Address: [address] [place] [address] Performed By: #### 6 30-4, 96067-9 ####[facility] [id number] [place] [address] [place] Specific gravity (U) [Rel density] 1.019 Normal 1.005-1.030 [facility] Comment on above: Order Comment: Speci men Type: URINE SPECIMENOrdering Facility: [facility] Address: [address] [place] [address] Performed By: #### 6 30-4, 28506-4 ####[facility] [id number] [place] [address] [place] Urobilinogen Ql (U) 0.2 EU/dL Normal 0.2-1.0 EU/dL [facility] Comment on above: Order Comment: Speci men Type: URINE SPECIMENOrdering Facility: [facility] Address: [address] [place] [address] Performed By: #### 6 30-4, 91400-5 ####[facility] [id number] [place] [address] [place] WBC LM.HPF (Urine sed) [#/Area] /[HPF] Abnormal 0-5 /HPF [facility] Comment on above: Order Comment: Speci men Type: URINE SPECIMENOrdering Facility: [facility] Address: [address] [place] [address] Performed By: #### 6 30-4, 70990-5 ####[facility] [id number] [place] [address] [place] ALLIED HEALTHon 11-11-2024 ALLIED HEALTH Normal [facility] ALLIED HEALTH Normal [facility] ANTI PLT FACTOR 4 ABon 11-11 Heparin induced platelet IgG Marco Antonio (S) [Interp] Negative Normal Negative [facility] Comment on above: Order Comment: Speci men Type: BLOOD SPECIMENOrdering Facility: [facility] Address: [address] [place] [address] Result Comment: No a nti-platelet factor 4 IgG antibody is detected by ANDERS assay.Heparin-induced thrombocytopenia (HIT) is unlikely, but should be excluded based on clinical factors. Performed By: #### P LATF4 ####[facility] LABCLIA [id number] [place] [address] [place] Platelet factor 4 Qn (PPP) 0.184 OD Normal <0.400 [facility] Comment on above: Order Comment: Ezekiel ramirez Type: BLOOD SPECIMENOrdering Facility: [facility] Address: [address] [place] [address] Result Comment: Not calculated Performed By: #### P LATF4 ####[facility] LABIA [id number] [address] [place] Albumin [facility] 5 Albumin (Body fld) [Mass/Vol] <0.2 Normal See Comment [facility] Comment on above: Order Comment: Ezekiel james Type: FLUID SPECIMENOrdering Facility: [facility] Address: [address] [place] [address] Result Comment: Body Fluid Albumin may be [...] document C49A. PAULETTE Diaz: Clinical Laboratory Standards [place]: 2007.2. Amy JACKSON. Serum to ascites albumin gradient. UpToDate. 2015. Accessed on November 15, 2015.This test was developed, and its performance characteristics determined by the [facility] Department of Pathology and Laboratory Medicine. It has not been cleared or approved by the FDA. The [facility] Department of Pathology and Laboratory Medicine is regulated under CLIA as qualified to perform high-complexity testing. This test is used for clinical purposes. It should not be regarded as investigational or for research. Performed By: #### 1 747-5, 1795-4, 58507-9, 2881-1 ####[facility] LABCLIA [id number] [place] [address] [place] Fluid Nom (Body fld) Abdomen Normal [facility] Comment on above: Order Comment: Speci men Type: FLUID SPECIMENOrdering Facility: [facility] Address: [address] [place] [address] Performed By: #### 1 747-5, 1795-4, 56276-9, 2881-1 ####[facility] LABCLIA [id number] [address] [place] Amylase Fld-cCncon 5 Amylase (Body fld) [Catalytic activity/Vol] 14 U/L Normal See Comment [facility] Comment on above: Order Comment: Speci men Type: FLUID SPECIMENOrdering Facility: [facility] Address: [address] [place] [address] Result Comment: PLEU RAL FLUIDS:Amylase measurement in [...] document C49-A. PAULETTE Diaz: Clinical Laboratory Standards [place]; 2007.3. Kelby CONCEPCION, John BRAR, Star DJ. Use of cyst fluid CEA, CA19-9, and amylase for evaluation of pancreatic lesions. Clinical Biochemistry. 2009;42:8700-6297.This test was developed, and its performance characteristics determined by the [facility] Department of Pathology and Laboratory Medicine. It has not been cleared or approved by the FDA. The [facility] Department of Pathology and Laboratory Medicine is regulated under CLIA as qualified to perform high-complexity testing. This test is used for clinical purposes. It should not be regarded as investigational or for research. Performed By: #### 1 747-5, 1795-4, 47544-4, 2881-1 ####[facility] LABCLIA [id number] [place] [address] [place] Antithrombin Ag actual/philly l IA (PPP) [Relative mass conc]on 11-11-2024 Antithrombin Ag IA Qn (PPP) 32 % Low 80-120 [facility] Comment on above: Order Comment: Speci men Type: BLOOD SPECIMENOrdering Facility: [facility] Address: [address] [place] [address] Performed By: #### L [id number], HCOAG, 6303-2, 34509-8, 16459-0 ####[facility] LABCLIA [id number] [place] [address] [place] BODY FLUID CELL COUNTon 11-02 Clarity (Unsp spec) Clear Normal Clear [facility] Comment on above: Order Comment: Speci men Type: FLUID SPECIMENOrdering Facility: [facility] Address: [address] [place] [address] Performed By: #### C CBF, [id number] ####[facility] LABCLIA [id number] [place] [address] [place] Color (Body fld) Colorless Normal Yellow [facility] Comment on above: Order Comment: Speci men Type: FLUID SPECIMENOrdering Facility: [facility] Address: [address] [place] [address] Performed By: #### C CBF, [id number] ####[facility] LABCLIA [id number] [place] [address] [place] RBC Manual cnt (Body fld) [#/Vol] 2000 /uL High <2000 [facility] Comment on above: Order Comment: Speci men Type: FLUID SPECIMENOrdering Facility: [facility] Address: [address] [place] [address] Performed By: #### C CBF, [id number] ####[facility] LABCLIA [id number] [address] [place] Specimen source Nom (Body fld) Abdomen Normal [facility] Comment on above: Order Comment: Speci men Type: FLUID SPECIMENOrdering Facility: [facility] Address: [address] [place] [address] Performed By: #### C CBF, [id number] ####[facility] LABCLIA [id number] [place] [address] [place] WBC Manual cnt (Body fld) [#/Vol] 70 /uL Normal <1000 [facility] Comment on above: Order Comment: Speci men Type: FLUID SPECIMENOrdering Facility: [facility] Address: [address] [place] [address] Performed By: #### C CBF, [id number] ####[facility] LABCLIA [id number] [place] [address] [place] Bacteria Bld Culton 11-12-19 25 Bacteria identified Cx Nom (Bld) CULTURE, BLOOD: No growth 5 days GRAM STAIN: This blood culture had less than the recommended 8 ml per bottle, which could decrease the sensitivity of the test. Normal [facility] Comment on above: Performed By: #### 6 00-7 ####[facility] LABCLIA [id number] [address] [address] [place] Bacteria identified Cx Nom (Bld) CULTURE, BLOOD: No growth 5 days Normal [facility] Comment on above: Performed By: #### 6 00-7 ####[facility] LABCLIA [id number] [place] [id number] [place] Bacteria Fld Culton 11-12-19 25 Bacteria identified Cx Nom (Body fld) CULTURE, BODY FLD: No growth GRAM STAIN: No organisms seen Many Polymorphonuclear leukocytes Gram stain performed on cytospun specimen. Gram stain from primary specimen Normal [facility] Comment on above: Performed By: #### 6 35-3, 611-4 ####[facility] LABIA [id number] [place] [address] [place] Bacteria Spec Anaerobe Culto n 11-11-2024 Bacteria identified Anaer cx Nom (Unsp spec) Negative Normal [facility] Comment on above: Performed By: #### 6 35-3, 611-4 ####[facility] LABCLIA [id number] [address] [address] [place] Basic metabolic 2000 panelon 11-11-2024 Anion gap [Moles/Vol] 12 mmol/L Normal 8-15 [facility] Comment on above: Order Comment: Speci men Type: BLOOD SPECIMENOrdering Facility: [facility] Address: [address] [place] [address] Performed By: #### 2 276-4, 72787-6, 10716-4, 36509-1, 2777-1, 52386-7 ####[facility] LABIA [id number] [place] [id number] [place] Calcium [Mass/Vol] 9.1 mg/dL Normal 8.5-10.2 [facility] Comment on above: Order Comment: Speci men Type: BLOOD SPECIMENOrdering Facility: [facility] Address: [address] [place] [address] Performed By: #### 2 276-4, 36229-3, 43327-2, 19722-5, 2777-1, 26933-4 ####[facility] LABCLIA [id number] [place] [address] [place] Chloride [Moles/Vol] 97 mmol/L Low 98-107 [facility] Comment on above: Order Comment: Speci men Type: BLOOD SPECIMENOrdering Facility: [facility] Address: [address] [place] [address] Performed By: #### 2 276-4, 81362-8, 45981-9, 07527-1, 2777-1, 13687-2 ####[facility] LABCLIA [id number] [place] [address] [place] CO2 [Moles/Vol] 14 mmol/L Low 22-30 [facility] Comment on above: Order Comment: Speci men Type: BLOOD SPECIMENOrdering Facility: [facility] Address: [address] [place] [address] Performed By: #### 2 276-4, 49433-8, 16192-5, 78072-9, 2777-1, 16847-8 ####[facility] LABCLIA [id number] [place] [id number] [place] Creatinine [Mass/Vol] 1.35 mg/dL High 0.73-1.22 [facility] Comment on above: Order Comment: Speci men Type: BLOOD SPECIMENOrdering Facility: [facility] Address: [address] [place] [address] Performed By: #### 2 276-4, 51293-9, 97888-8, 05228-8, 2777-1, 04418-5 ####[facility] LABCLIA [id number] [place] [address] [place] Creatinine and Glomerular filtration rate.predicted panel (S/P/Bld) 61 mL/min/1.73m??? Normal >=60 [facility] Comment on above: Order Comment: Ezekiel ramirez Type: BLOOD SPECIMENOrdering Facility: [facility] Address: [address] [place] [address] Result Comment: Patric mated Glomerular Filtration Rate [...] actual GFR. Performed By: #### 2 276-4, 33517-9, 60521-9, 64054-8, 2777-1, 49869-4 ####[facility] [id number] [place] [address] [place] Glucose [Mass/Vol] 292 mg/dL High 74-99 [facility] Comment on above: Order Comment: Ezekiel ramirez Type: BLOOD SPECIMENOrdering Facility: [facility] Address: [address] [place] [address] Result Comment: The [place] Diabetes [employer] (ADA) provides guidance for cutoff [...] Standards of Medical Care in Diabetes 2016, [place] [employer]. Diabetes Care. 2016.39(Suppl 1). Performed By: #### 2 276-4, 27098-3, 00842-6, 27099-6, 2776-1, ####[facility] LABCLIA [id number] [address] [address] [place] Potassium [Moles/Vol] 3.6 mmol/L Low 3.7-5.1 [facility] Comment on above: Order Comment: Speci men Type: BLOOD SPECIMENOrdering Facility: [facility] Address: [address] [place] [address] Performed By: #### 2 276-4, 17205-4, 08930-0, 66252-8, 7-1, ####[facility] LABCLIA [id number] [address] [address] [place] Sodium [Moles/Vol] 123 mmol/L Low 136-144 [facility] Comment on above: Order Comment: Speci men Type: BLOOD SPECIMENOrdering Facility: [facility] Address: [address] [place] [address] Performed By: #### 2 276-4, 48271-6, 45898-6, 40850-6, 2776-1, ####[facility] LABIA [id number] [place] [id number] [place] Urea nitrogen [Mass/Vol] 22 mg/dL Normal 9-24 [facility] Comment on above: Order Comment: Speci men Type: BLOOD SPECIMENOrdering Facility: [facility] Address: [address] [place] [address] Performed By: #### 2 276-4, 14546-7, 51760-9, 10197-8, 2776-1, ####[facility] LABIA [id number] [place] [id number] [place] CARDIOLIPIN IGG ABSon 2024 Cardiolipin IgG IA Qn (S) <9.0 Normal <15.0 [facility] Comment on above: Order Comment: Speci men Type: BLOOD SPECIMENOrdering Facility: [facility] Address: [address] [place] [address] Result Comment: <15 GPL [id number] GPL Indeterminate>20 GPL PositiveThe following results were obtained with the [employer] QUANTA Lite TEZ IgG III ANDERS. Cardiolipin IgG values obtained with the different manufacturers' assay methods may not be used interchangeably. The magnitude of the reported IgG levels cannot be correlated to an endpoint titer. Performed By: #### 5 076-5KATHI CARDIM ####[facility] LABCLIA [id number] [address] OF [facility] CARDIOLIPIN IGM ABSon 2024 Cardiolipin IgM IA Qn (S) <9.0 Normal <12.5 [facility] Comment on above: Order Comment: Speci men Type: BLOOD SPECIMENOrdering Facility: [facility] Address: [address] [place] [address] Result Comment: <12. 5 MPL Qyupmhkj47.5-20 MPL Indeterminate>20 MPL PositiveThe following results were obtained with the [employer] QUANTA Lite TEZ IgM III ANDERS. Cardiolipin IgM values obtained with the different manufacturers' assay methods may not be used interchangeably. The magnitude of the reported IgM levels cannot be correlated to an endpoint titer.??? Performed By: #### 5 076-5KATHI CARDIM ####[facility] LABCLIA [id number] [address] [place] CASE MANAGEMon 11-11-2024 CASE MANAGEM Normal [facility] CBC W Auto Differential pane l (Bld)on 11-11-2024 Basophils (Bld) [#/Vol] 0.04 10*3/uL Normal <0.11 [facility] Comment on above: Order Comment: Speci men Type: BLOOD SPECIMENOrdering Facility: [facility] Address: [address] [place] [address] Performed By: #### I PFR, 81708-9, 75358-5 ####[facility] LABCLIA [id number] [address] [address] [place] Basophils/100 WBC (Bld) 0.4 % Normal [facility] Comment on above: Order Comment: Speci men Type: BLOOD SPECIMENOrdering Facility: [facility] Address: [address] [place] [address] Performed By: #### I PFR, 28981-8, 76773-5 ####[facility] LABCLIA [id number] [facility] [place] [address] [place] Differential cell count method Nom (Bld) Auto Normal [facility] Comment on above: Order Comment: Speci men Type: BLOOD SPECIMENOrdering Facility: [facility] Address: [address] [place] [address] Performed By: #### I PFR, 91004-8, 51961-7 ####[facility] LABCLIA [id number] [place] [address] [place] Eosinophils (Bld) [#/Vol] 0.35 10*3/uL Normal <0.46 [facility] Comment on above: Order Comment: Speci men Type: BLOOD SPECIMENOrdering Facility: [facility] Address: [address] [place] [address] Performed By: #### I PFR, 96009-0, ####[facility] LABCLIA [id number] [facility] [address] [place] Eosinophils/100 WBC (Bld) 3.4 % Normal [facility] Comment on above: Order Comment: Speci men Type: BLOOD SPECIMENOrdering Facility: [facility] Address: [address] [place] [address] Performed By: #### I PFR, 35112-6, 20962-0 ####[facility] LABCLIA [id number] [facility] [place] [address] [place] Erythrocyte distribution width (RBC) [Ratio] 17.4 % High 11.5-15.0 [facility] Comment on above: Order Comment: Speci men Type: BLOOD SPECIMENOrdering Facility: [facility] Address: [address] [place] [address] Performed By: #### I PFR, 73229-7, 66338-9 ####[facility] LABCLIA [id number] [place] [address] [place] Hematocrit (Bld) [Volume fraction] 24.6 % Low 39.0-51.0 [facility] Comment on above: Order Comment: Speci men Type: BLOOD SPECIMENOrdering Facility: [facility] Address: [address] [place] [address] Performed By: #### I PFR, 85522-5, 92890-4 ####[facility] LABCLIA [id number] [place] [address] [place] Hemoglobin (Bld) [Mass/Vol] 8.4 g/dL Low 13.0-17.0 [facility] Comment on above: Order Comment: Speci men Type: BLOOD SPECIMENOrdering Facility: [facility] Address: [address] [place] [address] Performed By: #### I PFR, 88201-1, 59003-9 ####[facility] LABIA [id number] [place] [address] [place] Immature granulocytes (Bld) [#/Vol] 0.08 10*3/uL Normal <0.10 [facility] Comment on above: Order Comment: Speci men Type: BLOOD SPECIMENOrdering Facility: [facility] Address: [address] [place] [address] Performed By: #### I PFR, 39344-8, 57745-5 ####[facility] LABIA [id number] [place] [address] [place] Immature granulocytes/100 WBC (Bld) 0.8 % Normal [facility] Comment on above: Order Comment: Speci men Type: BLOOD SPECIMENOrdering Facility: [facility] Address: [address] [place] [address] Performed By: #### I PFR, 45979-0, 95740-0 ####[facility] LABIA [id number] [place] [address] [place] Lymphocytes (Bld) [#/Vol] 0.99 10*3/uL Low 1.00-4.00 [facility] Comment on above: Order Comment: Speci men Type: BLOOD SPECIMENOrdering Facility: [facility] Address: [address] [place] [address] Performed By: #### I PFR, 15960-9, 70456-3 ####[facility] LABIA [id number] [place] [address] [place] Lymphocytes/100 WBC (Bld) 9.5 % Normal [facility] Comment on above: Order Comment: Speci men Type: BLOOD SPECIMENOrdering Facility: [facility] Address: [address] [place] [address] Performed By: #### I PFR, 56978-7, 81815-6 ####[facility] LABIA [id number] [place] [address] [place] MCH (RBC) [Entitic mass] 31.9 pg Normal 26.0-34.0 [facility] Comment on above: Order Comment: Speci men Type: BLOOD SPECIMENOrdering Facility: [facility] Address: [address] [place] [address] Performed By: #### I PFR, 38133-5, 67041-8 ####[facility] LABIA [id number] [place] [id number] [place] MCHC (RBC) [Mass/Vol] 34.1 g/dL Normal 30.5-36.0 [facility] Comment on above: Order Comment: Speci men Type: BLOOD SPECIMENOrdering Facility: [facility] Address: [address] [place] [address] Performed By: #### I PFR, 66298-4, 72144-4 ####[facility] LABCLIA [id number] [address] [address] [place] MCV (RBC) [Entitic vol] 93.5 fL Normal 80.0-100.0 [facility] Comment on above: Order Comment: Speci men Type: BLOOD SPECIMENOrdering Facility: [facility] Address: [address] [place] [address] Performed By: #### I PFR, 58720-5, 48575-8 ####[facility] LABCLIA [id number] [place] [id number] [place] Monocytes (Bld) [#/Vol] 0.97 10*3/uL High <0.87 [facility] Comment on above: Order Comment: Speci men Type: BLOOD SPECIMENOrdering Facility: [facility] Address: [address] [place] [address] Performed By: #### I PFR, 38932-9, 56655-5 ####[facility] LABCLIA [id number] [place] [id number] [place] Monocytes/100 WBC (Bld) 9.3 % Normal [facility] Comment on above: Order Comment: Speci men Type: BLOOD SPECIMENOrdering Facility: [facility] Address: [address] [place] [address] Performed By: #### I PFR, 32895-2, 17589-8 ####[facility] LABCLIA [id number] [address] [address] [place] Neutrophils (Bld) [#/Vol] 8.00 10*3/uL High 1.45-7.50 [facility] Comment on above: Order Comment: Speci men Type: BLOOD SPECIMENOrdering Facility: [facility] Address: [address] [place] [address] Performed By: #### I PFR, 38844-4, 93731-2 ####[facility] LABCLIA [id number] [address] [address] [place] Neutrophils/100 WBC (Bld) 76.6 % Normal [facility] Comment on above: Order Comment: Speci men Type: BLOOD SPECIMENOrdering Facility: [facility] Address: [address] [place] [address] Performed By: #### I PFR, 99176-5, 57444-3 ####[facility] LABCLIA [id number] [place] [address] [place] Nucleated RBC (Bld) [#/Vol] 10*3/uL Normal <0.01 [facility] Comment on above: Order Comment: Speci men Type: BLOOD SPECIMENOrdering Facility: [facility] Address: [address] [place] [address] Performed By: #### I PFR, 06544-4, 18153-5 ####[facility] LABIA [id number] [place] [address] [place] Nucleated RBC/100 WBC (Bld) [Ratio] 0.0 /100 WBC Normal [facility] Comment on above: Order Comment: Speci men Type: BLOOD SPECIMENOrdering Facility: [facility] Address: [address] [place] [address] Performed By: #### I PFR, 05473-7, ####[facility] LABIA [id number] [place] [id number] [place] Platelet mean volume (Bld) [Entitic vol] 11.5 fL Normal 9.0-12.7 [facility] Comment on above: Order Comment: Speci men Type: BLOOD SPECIMENOrdering Facility: [facility] Address: [address] [place] [address] Performed By: #### I PFR, 88892-7, 99305-4 ####[facility] LABCLIA [id number] [address] [address] [place] Platelets (Bld) [#/Vol] 43 10*3/uL Low 150-400 [facility] Comment on above: Order Comment: Speci men Type: BLOOD SPECIMENOrdering Facility: [facility] Address: [address] [place] [address] Performed By: #### I PFR, 71792-5, 98612-4 ####[facility] LABCLIA [id number] [place] [address] [place] RBC (Bld) [#/Vol] 2.63 10*6/uL Low 4.20-6.00 [facility] Comment on above: Order Comment: Speci men Type: BLOOD SPECIMENOrdering Facility: [facility] Address: [address] [place] [address] Performed By: #### I PFR, 09279-2, 16491-2 ####[facility] LABCLIA [id number] [place] [address] [place] WBC (Bld) [#/Vol] 10.43 10*3/uL Normal 3.70-11.00 [facility] Comment on above: Order Comment: Speci men Type: BLOOD SPECIMENOrdering Facility: [facility] Address: [address] [place] [address] Performed By: #### I PFR, 77044-7, 08887-0 ####[facility] LABCLIA [id number] [place] [id number] [place] Basophils (Bld) [#/Vol] 0.06 10*3/uL Normal <0.11 [facility] Comment on above: Order Comment: Speci men Type: BLOOD SPECIMENOrdering Facility: [facility] Address: [address] [place] [address] Performed By: #### 5 5454-3, 69344-7 ####[facility] LABCLIA [id number] [address], [facility] [place] Basophils/100 WBC (Bld) 0.4 % Normal [facility] Comment on above: Order Comment: Speci men Type: BLOOD SPECIMENOrdering Facility: [facility] Address: [address] [place] [address] Performed By: #### 5 5454-3, 74164-5 ####[facility] LABCLIA [id number] [address], [place] [address] [place] Differential cell count method Nom (Bld) Auto Normal [facility] Comment on above: Order Comment: Speci men Type: BLOOD SPECIMENOrdering Facility: [facility] Address: [address] [place] [address] Performed By: #### 5 5454-3, 56881-0 ####[facility] LABCLIA [id number] [place] [address] [place] Eosinophils (Bld) [#/Vol] 0.40 10*3/uL Normal <0.46 [facility] Comment on above: Order Comment: Speci men Type: BLOOD SPECIMENOrdering Facility: [facility] Address: [address] [place] [address] Performed By: #### 5 5454-3, 05935-6 ####[facility] LABCLIA [id number] [address] [place] Eosinophils/100 WBC (Bld) 2.5 % Normal [facility] Comment on above: Order Comment: Speci men Type: BLOOD SPECIMENOrdering Facility: [facility] Address: [address] [place] [address] Performed By: #### 5 5454-3, 30403-5 ####[facility] [facility] [id number] [place] [address] [place] Erythrocyte distribution width (RBC) [Ratio] 18.0 % High 11.5-15.0 [facility] Comment on above: Order Comment: Speci men Type: BLOOD SPECIMENOrdering Facility: [facility] Address: [address] [place] [address] Performed By: #### 5 5454-3, 26666-9 ####[facility] LABCLIA [id number] [address] [address] [place] Hematocrit (Bld) [Volume fraction] 30.4 % Low 39.0-51.0 [facility] Comment on above: Order Comment: Speci men Type: BLOOD SPECIMENOrdering Facility: [facility] Address: [address] [place] [address] Performed By: #### 5 5454-3, 21411-5 ####[facility] LABIA [id number] [place] [address] [place] Hemoglobin (Bld) [Mass/Vol] 10.2 g/dL Low 13.0-17.0 [facility] Comment on above: Order Comment: Speci men Type: BLOOD SPECIMENOrdering Facility: [facility] Address: [address] [place] [address] Performed By: #### 5 5454-3, 40460-8 ####[facility] LABIA [id number] [place] [address] [place] Immature granulocytes (Bld) [#/Vol] 0.18 10*3/uL High <0.10 [facility] Comment on above: Order Comment: Speci men Type: BLOOD SPECIMENOrdering Facility: [facility] Address: [address] [place] [address] Performed By: #### 5 5454-3, 70191-6 ####[facility] LABIA [id number] [place] [address] [place] Immature granulocytes/100 WBC (Bld) 1.1 % Normal [facility] Comment on above: Order Comment: Speci men Type: BLOOD SPECIMENOrdering Facility: [facility] Address: [address] [place] [address] Performed By: #### 5 5454-3, 74790-7 ####[facility] LABCLIA [id number] [place] [address] [place] Lymphocytes (Bld) [#/Vol] 1.19 10*3/uL Normal 1.00-4.00 [facility] Comment on above: Order Comment: Speci men Type: BLOOD SPECIMENOrdering Facility: [facility] Address: [address] [place] [address] Performed By: #### 5 5454-3, 05045-2 ####[facility] LABCLIA [id number] [place] [address] [place] Lymphocytes/100 WBC (Bld) 7.6 % Normal [facility] Comment on above: Order Comment: Speci men Type: BLOOD SPECIMENOrdering Facility: [facility] Address: [address] [place] [address] Performed By: #### 5 5454-3, 99474-0 ####[facility] LABCLIA [id number] [place] [address] [place] MCH (RBC) [Entitic mass] 31.3 pg Normal 26.0-34.0 [facility] Comment on above: Order Comment: Speci men Type: BLOOD SPECIMENOrdering Facility: [facility] Address: [address] [place] [address] Performed By: #### 5 5454-3, 82734-3 ####[facility] LABCLIA [id number] [place] [id number] [place] MCHC (RBC) [Mass/Vol] 33.6 g/dL Normal 30.5-36.0 [facility] Comment on above: Order Comment: Speci men Type: BLOOD SPECIMENOrdering Facility: [facility] Address: [address] [place] [address] Performed By: #### 5 5454-3, 50658-3 ####[facility] LABCLIA [id number] [address] [place] [address] [place] MCV (RBC) [Entitic vol] 93.3 fL Normal 80.0-100.0 [facility] Comment on above: Order Comment: Speci men Type: BLOOD SPECIMENOrdering Facility: [facility] Address: [address] [place] [address] Performed By: #### 5 5454-3, 80367-6 ####[facility] LABCLIA [id number] [address], [place] [address] [place] Monocytes (Bld) [#/Vol] 1.36 10*3/uL High <0.87 [facility] Comment on above: Order Comment: Speci men Type: BLOOD SPECIMENOrdering Facility: [facility] Address: [address] [place] [address] Performed By: #### 5 5454-3, 22402-5 ####[facility] LABIA [id number] [place] [address] [place] Monocytes/100 WBC (Bld) 8.6 % Normal [facility] Comment on above: Order Comment: Speci men Type: BLOOD SPECIMENOrdering Facility: [facility] Address: [address] [place] [address] Performed By: #### 5 5454-3, 84718-2 ####[facility] LABIA [id number] [place] [id number] [place] Neutrophils (Bld) [#/Vol] 12.55 10*3/uL High 1.45-7.50 [facility] Comment on above: Order Comment: Speci men Type: BLOOD SPECIMENOrdering Facility: [facility] Address: [address] [place] [address] Performed By: #### 5 5454-3, 20404-9 ####[facility] LABCLIA [id number] [place] [id number] [place] Neutrophils/100 WBC (Bld) 79.8 % Normal [facility] Comment on above: Order Comment: Speci men Type: BLOOD SPECIMENOrdering Facility: [facility] Address: [address] [place] [address] Performed By: #### 5 5454-3, 94336-8 ####[facility] LABCLIA [id number] [facility] [place] [address] [place] Nucleated RBC (Bld) [#/Vol] 10*3/uL Normal <0.01 [facility] Comment on above: Order Comment: Speci men Type: BLOOD SPECIMENOrdering Facility: [facility] Address: [address] [place] [address] Performed By: #### 5 5454-3, 34370-6 ####[facility] LABCLIA [id number] [place] [address] [place] Nucleated RBC/100 WBC (Bld) [Ratio] 0.0 /100 WBC Normal [facility] Comment on above: Order Comment: Speci men Type: BLOOD SPECIMENOrdering Facility: [facility] Address: [address] [place] [address] Performed By: #### 5 5454-3, 88725-8 ####[facility] LABIA [id number] [place] [address] [place] Platelet mean volume (Bld) [Entitic vol] 12.1 fL Normal 9.0-12.7 [facility] Comment on above: Order Comment: Speci men Type: BLOOD SPECIMENOrdering Facility: [facility] Address: [address] [place] [address] Performed By: #### 5 5454-3, 28674-8 ####[facility] LABCLIA [id number] [place] [id number] [place] Platelets (Bld) [#/Vol] 52 10*3/uL Low 150-400 [facility] Comment on above: Order Comment: Speci men Type: BLOOD SPECIMENOrdering Facility: [facility] Address: [address] [place] [address] Result Comment: Resu lts checked and verified.No clot detected. Performed By: #### 5 5454-3, 73707-3 ####[facility] LABCLIA [id number] [place] [id number] [place] RBC (Bld) [#/Vol] 3.26 10*6/uL Low 4.20-6.00 [facility] Comment on above: Order Comment: Speci men Type: BLOOD SPECIMENOrdering Facility: [facility] Address: [address] [place] [address] Performed By: #### 5 5454-3, 16111-2 ####[facility] LABCLIA [id number] [place] [id number] [place] WBC (Bld) [#/Vol] 15.74 10*3/uL High 3.70-11.00 [facility] Comment on above: Order Comment: Speci men Type: BLOOD SPECIMENOrdering Facility: [facility] Address: [address] [place] [address] Performed By: #### 5 5454-3, 59736-0 ####[facility] LABIA [id number] [place] [address] [place] CEA SerPl-mCncon 11-11-2024 Carcinoembryonic Ag [Mass/Vol] 13.0 ng/mL High <=2.9 [facility] Comment on above: Order Comment: Speci men Type: BLOOD SPECIMENOrdering Facility: [facility] Address: [address] [place] [address] Result Comment: Carc inoembryonic antigen test is used as an aid in monitoring response to treatment or recurrence in patients with established colorectal, breast, lung, prostatic, pancreatic, and ovarian carcinomas. Clinical correlation is required.The Carcinoembryonic antigen test was performed using the Fiordaliza Liebo Unicel DXI paramagnetic particle chemiluminescent immunoassay method. Results obtained with different assay methods or kits cannot be used interchangeably. Performed By: #### 2 039-6, 22244-5, 2532-0 ####[facility] [id number] [place] [address] [place] COAG CORE PANEL BLDon 2024 aPTT Coag (PPP) [Time] 41.3 s High 23.0-32.4 [facility] Comment on above: Order Comment: Ezekiel ramirez Type: BLOOD SPECIMENOrdering Facility: [facility] Address: [address] [place] [address] Performed By: #### C ORPNL ####[facility] [id number] [address] STATES OF [facility] Fibrinogen Coag (PPP) [Mass/Vol] 88 mg/dL Low 200-400 [facility] Comment on above: Order Comment: Ezekiel ramirez Type: BLOOD SPECIMENOrdering Facility: [facility] Address: [address] [place] [address] Result Comment: Samp le checked for clot.Result rechecked. Performed By: #### C ORPNL ####[facility] [id number] [address] STATES OF [facility] INR Coag (PPP) [Relative time] 2.1 {INR} High 0.9-1.3 [facility] Comment on above: Order Comment: Ezekiel ramirez Type: BLOOD SPECIMENOrdering Facility: [facility] Address: [address] [place] [address] Result Comment: Sarah min K Antagonist (VKA) Therapeutic Range: INR 2 to 3 (Target INR of 2.5)Note: For patients treated with VKA drugs, such as warfarin, the [employer] 2012 Guideline recommends [...] al. Chest 2012, 141:7S-47SHector RA, et al. [facility] 2017, 70: 252-289 Performed By: #### C ORPNL ####[facility] LABIA [id number] [place] [address] [place] PT Coag (PPP) [Time] 21.8 s High 9.7-13.0 [facility] Comment on above: Order Comment: Speci men Type: BLOOD SPECIMENOrdering Facility: [facility] Address: [address] [place] [address] Performed By: #### C ORPNL ####[facility] [id number] [place] [address] [place] CONSULTon 11-11-2024 CONSULT Normal [facility] CONSULT Normal [facility] CRP SerPl-mCncon 11-11-2024 CRP [Mass/Vol] 0.5 mg/dL Normal <0.9 [facility] Comment on above: Order Comment: Ezekiel ramirez Type: BLOOD SPECIMENOrdering Facility: [facility] Address: [address] [place] [address] Performed By: #### Jazmine ASHLEY, 1986-12 ####[facility] [id number] [place] [address] [place] CYTOLOGY NON-GYNon AP DISCLAIMER Normal [facility] Comment on above: Order Comment: Meggani men Type: FLUID SPECIMENOrdering Facility: [facility] Address: [address] [place] [address] Result Comment: Shellie Fox Test (LDT) Disclaimer:Performance characteristics of immunohistochemical, immunofluorescent, and chromogenic in-situ hybridization tests have been determined by the performing laboratory within [facility]'s [facility] Pathology and Laboratory Medicine Department ([facility], [facility], [facility], [facility], [facility], [facility], or [facility]) in a manner consistent with CLIA requirements. One or more of these tests may not have been cleared or approved by the FDA. [facility] is regulated under CLIA as qualified to perform high-complexity testing. These tests are used for clinical purposes. These should not be regarded as investigational or for research. Positive and negative controls stain appropriately. Performed By: #### C YTONON ####[facility] LABCLIA [id number] [place] [address] [place] CASE REPORT Normal [facility] Comment on above: Order Comment: Speci men Type: FLUID SPECIMENOrdering Facility: [facility] Address: [address] [place] [address] Result Comment: [facility] Cytology Report Case: [id number] Provider: Yaritza Juarez, Collected: 11/11/2024 05:14 PM PURCHASING ADMINISTRATOR.CNPOrdering Location: [place] [address] Received: 11/11/2024 08:30 PMPathologist: Sameer Fournier MDSpecimen: Abdomen Performed By: #### C YTONON ####[facility] LABCLIA [id number] [place] [address] [place] CLINICAL HISTORY paracentesis fluid Normal [facility] Comment on above: Order Comment: Speci men Type: FLUID SPECIMENOrdering Facility: [facility] Address: [address] [place] [address] Performed By: #### C YTONON ####[facility] LABCLIA [id number] [place] [address] [place] FINAL DIAGNOSIS Normal [facility] Comment on above: Order Comment: Speci men Type: FLUID SPECIMENOrdering Facility: [facility] Address: [address] [place] [address] Result Comment: A - Abdomen, Fluid Negative for malignant cells.The following cell blocks were associated with this case:A1\X09\Cell Block, Alcohol Fixed\X09\ at 1034 EDT Performed By: #### C YTONON ####[facility] LABCLIA [id number] [place] [address] [place] FINAL PERFORMING LAB Normal [facility] Comment on above: Order Comment: Speci men Type: FLUID SPECIMENOrdering Facility: [facility] Address: [address] [place] [address] Result Comment: Tech nical component, chocolate molder screening performed at: [facility], [address] [place] [address] CLIA: [id number] interpretation performed at: [facility], [address] [place] [address] CLIA# [id number] Director: Titi Voss MD Performed By: #### C YTONON ####[facility] LABCLIA [id number] [place] [address] [place] GROSS DESCRIPTION A. Abdomen Normal [facility] Comment on above: Order Comment: Speci men Type: FLUID SPECIMENOrdering Facility: [facility] Address: [address] [place] [address] Result Comment: 1450 cc opaque lexis fluid . ThinPrep and Cell Block prepared. Performed By: #### C YTONON ####[facility] LABCLIA [id number] [place] [address] [place] Cancer Ag19-9 SerPl-aCncon 0 11-11-2024 Cancer Ag 19-9 Qn <2.0 Normal <36.0 [facility] Comment on above: Order Comment: Speci men Type: BLOOD SPECIMENOrdering Facility: [facility] Address: [address] [place] [address] Result Comment: [facility] er antigen 19-9 test is used [...] used interchangeably. Performed By: #### 2 039-6, 33294-2, 2532-0 ####[facility] LABCLIA [id number] [place] [id number] [place] Cardiolipin IgA Ser IA-aCnco n 11-11-2024 Cardiolipin IgA IA Qn (S) 9.7 [APL'U] Normal <12.0 [facility] Comment on above: Order Comment: Ezekiel ramirez Type: BLOOD SPECIMENOrdering Facility: [facility] Address: [address] [place] [address] Result Comment: <12 APL [id number] APL Indeterminate>20 APL PositiveThe following results were obtained with the [employer]m Universe[employer] Lite TEZ IgA III ANDERS. Cardiolipin IgA values obtained with the different manufacturers' assay methods may not be used interchangeably. The magnitude of the reported IgA levels cannot be correlated to an endpoint titer. Performed By: #### 5 076-5, MELVIN ARMENTA ####[facility] LABIA [id number] [place] [address] [place] DIRECT BILIRUBIN BLOODon Bilirubin.conjugated [Mass/Vol] 1.1 mg/dL High <0.3 [facility] Comment on above: Order Comment: Ezekiel ramirez Type: BLOOD SPECIMENOrdering Facility: [facility] Address: [address] [place] [address] Performed By: #### D ASHLEY, 1986-12 ####[facility] LABIA [id number] [place] [id number] [place] ECG COMPLETEon 11-11-2024 ECG COMPLETE Normal [facility] [id number] 11-11-2024 ECG01 Normal [facility] Ferritin SerPl-mCncon 04-10- 2025 Ferritin [Mass/Vol] 82.4 ng/mL Normal 30.3-565.7 [facility] Comment on above: Order Comment: Speci men Type: BLOOD SPECIMENOrdering Facility: [facility] Address: [address] [place] [address] Performed By: #### 2 276-4, 55726-5, 73882-2, 96321-6, 2777-1, 65205-6 ####[facility] LABCLIA [id number] [place] [address] [place] Fibrinogen PPP-mCncon 2024 Fibrinogen Coag (PPP) [Mass/Vol] 90 mg/dL Low 200-400 [facility] Comment on above: Order Comment: Speci men Type: BLOOD SPECIMENOrdering Facility: [facility] Address: [address] [place] [address] Result Comment: Samp le checked for clot.Result rechecked. Performed By: #### 3 255-7, 24384-8 ####[facility] LABCLIA [id number] [place] [address] [place] HISTORY PHYSICALon HISTORY PHYSICAL Normal [facility] HYPERCOAG PANELon 11-11-2024 Activated protein C resistance Coag (PPP) [Time ratio] 2.10 Ratio Normal >1.96 [facility] Comment on above: Order Comment: Speci men Type: BLOOD SPECIMENOrdering Facility: [facility] Address: [address] [place] [address] Performed By: #### L [id number], HCOAG, 6303-2, 67079-0, 12402-4 ####[facility] LABIA [id number] [place] [address] [place] Antithrombin actual/normal Chromogenic method (PPP) [Rel catalytic activity/Vol] 30 % Low 84-138 [facility] Comment on above: Order Comment: Speci men Type: BLOOD SPECIMENOrdering Facility: [facility] Address: [address] [place] [address] Performed By: #### L [id number], HCOAG, 6303-2, 33846-5, 92023-5 ####[facility] LABCLIA [id number] [place] [address] [place] aPTT Coag (Bld) [Time] 47.9 s High 24.0-35.1 [facility] Comment on above: Order Comment: Speci men Type: BLOOD SPECIMENOrdering Facility: [facility] Address: [address] [place] [address] Performed By: #### L [id number], HCOAG, 6303-2, 72248-5, 68100-9 ####[facility] LABCLIA [id number] [place] [address] [place] aPTT W excess hexagonal phase phospholipid Coag (PPP) [Time] 36.5 seconds Normal 34.0-51.8 [facility] Comment on above: Order Comment: Speci men Type: BLOOD SPECIMENOrdering Facility: [facility] Address: [address] [place] [address] Performed By: #### L [id number], HCOAG, 6303-2, 42968-7, 08281-4 ####[facility] LABIA [id number] [place] [address] [place] aPTT-LA w 1:1 PNP Coag (PPP) [Time] 32.5 seconds Normal <33.2 [facility] Comment on above: Order Comment: Speci men Type: BLOOD SPECIMENOrdering Facility: [facility] Address: [address] [place] [address] Result Comment: This test was developed, and its performance characteristics determined by the [facility] Department of Pathology and Laboratory Medicine. It has not been cleared or approved by the FDA. The [facility] Department of Pathology and Laboratory Medicine is regulated under CLIA as qualified to perform high-complexity testing. This test is used for clinical purposes. It should not be regarded as investigational or for research. Performed By: #### L [id number], HCOAG, 6303-2, 35991-1, 20988-4 ####[facility] [id number] [place] [address] [place] Coagulation factor VIII activity actual/normal Coag (PPP) [Relative time] 332 % High 50-173 [facility] Comment on above: Order Comment: Speci men Type: BLOOD SPECIMENOrdering Facility: [facility] Address: [address] [place] [address] Performed By: #### L [id number], HCOAG, 6303-2, 78081-6, 38040-7 ####[facility] [id number] [address] [place] Coagulation factor X activated act Coag Qn (PPP) <0.10 Normal <0.10 [facility] Comment on above: Order Comment: Speci men Type: BLOOD SPECIMENOrdering Facility: [facility] Address: [address] [place] [address] Result Comment: This test was developed, and its performance characteristics determined by the [facility] Department of Pathology and Laboratory Medicine. It has not been cleared or approved by the FDA. The [facility] Department of Pathology and Laboratory Medicine is regulated under CLIA as qualified to perform high-complexity testing. This test is used for clinical purposes. It should not be regarded as investigational or for research. Performed By: #### L [id number], HCOAG, 6303-2, 51398-7, 93968-8 ####[facility] LABIA [id number] [place] [address] [place] Delta dRVVT Coag (PPP) [Time diff] 2.2 delta seconds Normal <7.1 [facility] Comment on above: Order Comment: Speci men Type: BLOOD SPECIMENOrdering Facility: [facility] Address: [address] [place] [address] Performed By: #### L [id number], HCOAG, 6303-2, 89890-7, 77765-0 ####[facility] LABIA [id number] [place] [id number] [place] dRVVT W excess hexagonal phase phospholipid actual/normal Coag (PPP) [Relative time] 34.3 seconds Normal 34.2-47.9 [facility] Comment on above: Order Comment: Speci men Type: BLOOD SPECIMENOrdering Facility: [facility] Address: [address] [place] [address] Performed By: #### L [id number], HCOAG, 6303-2, 06900-1, 55913-6 ####[facility] [id number] [place] [address] [place] Protein C actual/normal Coag (PPP) [Relative time] 24 % Low 76-147 [facility] Comment on above: Order Comment: Speci men Type: BLOOD SPECIMENOrdering Facility: [facility] Address: [address] [place] [address] Performed By: #### L [id number], HCOAG, 6303-2, 68062-0, 47783-2 ####[facility] [id number] [place] [address] [place] Protein S actual/normal Coag (PPP) [Relative time] 28 % Low 59-152 [facility] Comment on above: Order Comment: Speci men Type: BLOOD SPECIMENOrdering Facility: [facility] Address: [address] [place] [address] Performed By: #### L [id number], HCOAG, 6303-2, 35014-1, 30309-3 ####[facility] [id number] [place] [address] [place] Protein S Free Ag actual/normal IA (PPP) [Relative mass conc] 45 % Low 55-148 [facility] Comment on above: Order Comment: Speci men Type: BLOOD SPECIMENOrdering Facility: [facility] Address: [address] [place] [address] Performed By: #### L [id number], HCOAG, 6303-2, 15862-7, 01949-2 ####[facility] LABCLIA [id number] [place] [address] [place] Thrombin time Coag (PPP) [Time] 20.0 seconds High <18.6 [facility] Comment on above: Order Comment: Speci men Type: BLOOD SPECIMENOrdering Facility: [facility] Address: [address] [place] [address] Performed By: #### L [id number], HCOAG, 6303-2, 32314-5, 64621-5 ####[facility] LABIA [id number] HYPERCOAG PANEL INTERPon INTERPRETATION (HYPERCOAG) Normal [facility] Comment on above: Order Comment: Ezekiel men Type: BLOOD SPECIMENOrdering Facility: [facility] Address: [address] [place] [address] Result Comment: Abno rmal - see comment [...] negative for the c.*97G>A variant (legacy name 65129I>A) in the 3' untranslated region of the [...] phase phospholipid neutralization. Performed By: #### L [id number], HCOAG, 6303-2, 84396-8, 16712-0 ####[facility] LABCLIA [id number] [address] [place] Pathologist name Reviewed by Julia Howell M.D., Ph.D Normal [facility] Comment on above: Order Comment: Ezekiel ramirez Type: BLOOD SPECIMENOrdering Facility: [facility] Address: [address] [place] [address] Performed By: #### L [id number], HCOAG, 6303-2, 26638-6, 72288-5 ####[facility] LABCLIA [id number] [place] [address] [place] Haptoglob SerPl-mCncon 11-11 Haptoglobin [Mass/Vol] 15 mg/dL Low 31-238 Cl [facility] Comment on above: Order Comment: Ezekiel ramirez Type: BLOOD SPECIMENOrdering Facility: [facility] Address: [address] [place] [address] Performed By: #### 2 4362-6, 4542-7 ####[facility] LABIA [id number] [place] [address] [place] HbA1c (Bld)on 11-11-2024 Average glucose Estimated from glycated hemoglobin (Bld) [Mass/Vol] 154 mg/dL Normal [facility] Comment on above: Order Comment: Ezekiel ramirez Type: BLOOD SPECIMENOrdering Facility: [facility] Address: [address] [place] [address] Result Comment: eAG: (Estimated average glucose) is a calculated value from HgbA1c and is entry level sales representative of the average blood glucose level in the last 2-3 month period. Performed By: #### 5 5454-3, 51097-2 ####[facility] LABIA [id number] [place] [address] [place] HbA1c (Bld) [Mass fraction] 7.0 % High 4.3-5.6 [facility] Comment on above: Order Comment: Ezekiel ramirez Type: BLOOD SPECIMENOrdering Facility: [facility] Address: [address] [place] [address] Result Comment: Amer ican Diabetes Association guidelines indicate that patients with HgbA1c in the range 5.7-6.4% are at increased risk for development of diabetes, and intervention by lifestyle modification may be beneficial. HgbA1c greater or equal to 6.5% is considered diagnostic of diabetes. Performed By: #### 5 5454-3, 26187-2 ####[facility] LABCLIA [id number] [facility] [address] [id number] [address] [place] Hepatic function 2000 panelo n 11-11-2024 Albumin [Mass/Vol] 2.1 g/dL Low 3.9-4.9 [facility] Comment on above: Order Comment: Speci men Type: BLOOD SPECIMENOrdering Facility: [facility] Address: [address] [place] [address] Performed By: #### 2 276-4, 98426-4, 19132-3, 99981-8, 7-1, 20246-3 ####[facility] LABCLIA [id number] [facility] [id number], [place] [address] [place] ALP [Catalytic activity/Vol] 310 U/L High 38-113 [facility] Comment on above: Order Comment: Speci men Type: BLOOD SPECIMENOrdering Facility: [facility] Address: [address] [place] [address] Performed By: #### 2 276-4, 47483-6, 93292-4, 19378-5, 7-1, 71578-4 ####[facility] LABCLIA [id number] [id number], [place] [address] [place] ALT [Catalytic activity/Vol] 31 U/L Normal 10-54 [facility] Comment on above: Order Comment: Speci men Type: BLOOD SPECIMENOrdering Facility: [facility] Address: [address] [place] [address] Performed By: #### 2 276-4, 17504-9, 10738-9, 50358-7, 7-1, 80593-3 ####[facility] LABCLIA [id number] [facility] [address] [id number] [address] [place] AST [Catalytic activity/Vol] 44 U/L High 14-40 [facility] Comment on above: Order Comment: Speci men Type: BLOOD SPECIMENOrdering Facility: [facility] Address: [address] [place] [address] Performed By: #### 2 276-4, 37704-8, 83041-8, 28374-2, 2777-1, 87672-3 ####[facility] LABCLIA [id number] [place] [address] [place] Bilirubin [Mass/Vol] 1.6 mg/dL High 0.2-1.3 [facility] Comment on above: Order Comment: Speci men Type: BLOOD SPECIMENOrdering Facility: [facility] Address: [address] [place] [address] Performed By: #### 2 276-4, 17710-9, 95322-0, 17852-7, 2776-1, 60767-0 ####[facility] LABIA [id number] [place] [address] [place] Bilirubin.conjugated [Mass/Vol] 1.0 mg/dL High <0.3 [facility] Comment on above: Order Comment: Speci men Type: BLOOD SPECIMENOrdering Facility: [facility] Address: [address] [place] [address] Performed By: #### 2 276-4, 44924-5, 05135-5, 02626-1, 7-1, 21468-9 ####[facility] LABIA [id number] [place] [id number] [place] Protein [Mass/Vol] 5.3 g/dL Low 6.3-8.0 [facility] Comment on above: Order Comment: Speci men Type: BLOOD SPECIMENOrdering Facility: [facility] Address: [address] [place] [address] Performed By: #### 2 276-4, 89542-3, 32857-0, 89536-1, 2776-1, 73619-4 ####[facility] LABCLIA [id number] [place] [id number] [place] IMMATURE PLATELET FRACTIONon 11-11-2024 Platelets reticulated/100 platelets Auto (Bld) 7.7 % High 0.9-7.2 [facility] Comment on above: Order Comment: Speci men Type: BLOOD SPECIMENOrdering Facility: [facility] Address: [address] [place] [address] Performed By: #### I PFR, 01562-0, 04345-3 ####[facility] LABCLIA [id number] [place] [address] [place] Iron and Iron binding capaci ty panelon 11-11-2024 Iron [Mass/Vol] 34 ug/dL Low 41-186 [facility] Comment on above: Order Comment: Speci men Type: BLOOD SPECIMENOrdering Facility: [facility] Address: [address] [place] [address] Performed By: #### 2 276-4, 68496-1, 15418-7, 04141-1, 2776-1, ####[facility] LABCLIA [id number] [address] [place] Iron binding capacity [Mass/Vol] 180 ug/dL Low 232-386 [facility] Comment on above: Order Comment: Speci men Type: BLOOD SPECIMENOrdering Facility: [facility] Address: [address] [place] [address] Performed By: #### 2 276-4, 53195-8, 58340-8, 53894-2, 2776-1, ####[facility] LABCLIA [id number] [place] [id number] [place] Iron/TIBC [Molar ratio] 18.9 % Normal 15.0-57.0 [facility] Comment on above: Order Comment: Speci men Type: BLOOD SPECIMENOrdering Facility: [facility] Address: [address] [place] [address] Performed By: #### 2 276-4, 28703-5, 66981-0, 92998-7, 2777-1, 12562-6 ####[facility] LABCLIA [id number] [place] [address] [place] LDH SerPl-[facility] 11-11-2024 LDH [Catalytic activity/Vol] 321 U/L High 135-225 [facility] Comment on above: Order Comment: Speci men Type: BLOOD SPECIMENOrdering Facility: [facility] Address: [address] [place] [address] Performed By: #### 2 039-6, 64398-1, 2532-0 ####[facility] LABIA [id number] [place] [address] [place] Lipase Fld-[facility] 11-11-2024 Lipase (Body fld) [Catalytic activity/Vol] 29 U/L Normal See Comment [facility] Comment on above: Order Comment: Speci men Type: FLUID SPECIMENOrdering Facility: [facility] Address: [address] [place] [address] Result Comment: Pleu ral fluids: Lipase measurement [...] document C49A. PAULETTE Diaz: Clinical Laboratory Standards [place]: 2007.2. David Guillory. A review of pancreatic cyst fluid analysis in the differential diagnosis of pancreatic cyst lesions. [facility] [employer] 2013:0:1-16. Performed By: #### 1 747-5, 1795-4, 10808-7, 2881-1 ####[facility] [id number] [place] [address] [place] Lupus anticoagulant neutrali zation platelet Coag Ql (PPP)on 11-11-2024 aPTT Coag (Bld) [Time] 56.8 s High 30.2-43.0 [facility] Comment on above: Order Comment: Speci men Type: BLOOD SPECIMENOrdering Facility: [facility] Address: [address] [place] [address] Result Comment: This test was developed, and its performance characteristics determined by the [facility] Department of Pathology and Laboratory Medicine. It has not been cleared or approved by the FDA. The [facility] Department of Pathology and Laboratory Medicine is regulated under CLIA as qualified to perform high-complexity testing. This test is used for clinical purposes. It should not be regarded as investigational or for research. Performed By: #### L [id number], HCOAG, 6303-2, 65701-5, 65292-1 ####[facility] [id number] [place] [id number] [place] aPTT Coag (Bld) [Time] 36.5 s Normal 31.5-38.3 [facility] Comment on above: Order Comment: Speci james Type: BLOOD SPECIMENOrdering Facility: [facility] Address: [address] [place] [address] Result Comment: This test was developed, and its performance characteristics determined by the [facility] Department of Pathology and Laboratory Medicine. It has not been cleared or approved by the FDA. The [facility] of Pathology and Laboratory Medicine is regulated under CLIA as qualified to perform high-complexity testing. This test is used for clinical purposes. It should not be regarded as investigational or for research. Performed By: #### L [id number], HCOAG, 6303-2, 41198-5, 21967-1 ####[facility] LABIA [id number] [address] [address] [place] PLATELET NEUT 0.0 Seconds Normal <1.9 [facility] Comment on above: Order Comment: Speci men Type: BLOOD SPECIMENOrdering Facility: [facility] Address: [address] [place] [address] Result Comment: This test was developed, and its performance characteristics determined by the [facility] Department of Pathology and Laboratory Medicine. It has not been cleared or approved by the FDA. The [facility] Department of Pathology and Laboratory Medicine is regulated under CLIA as qualified to perform high-complexity testing. This test is used for clinical purposes. It should not be regarded as investigational or for research. Performed By: #### L [id number], HCOAG, 6303-2, 72386-5, 28815-8 ####[facility] LABCLIA [id number] [facility] [id number], [place] [address] [place] MANUAL DIFFERENTIAL, BODY FL UIDon 11-11-2024 DIF TTL, BODY FLUID 100 cells counted Normal [facility] Comment on above: Order Comment: Speci men Type: FLUID SPECIMENOrdering Facility: [facility] Address: [address] [place] [address] Performed By: #### C CBF, [id number] ####[facility] LABCLIA [id number] [facility] [address] [place] [address] [place] LYMPH%, BF 37 % High 18-36 [facility] Comment on above: Order Comment: Speci men Type: FLUID SPECIMENOrdering Facility: [facility] Address: [address] [place] [address] Performed By: #### C CBF, [id number] ####[facility] LABCLIA [id number] [facility] [address] [id number], [place] [address] [place] MACRO%, BF 21 % Low 64-80 [facility] Comment on above: Order Comment: Speci men Type: FLUID SPECIMENOrdering Facility: [facility] Address: [address] [place] [address] Performed By: #### C CBF, [id number] ####[facility] LABCLIA [id number] [place] [address] [place] MESO %, BF 12 % High 0-2 [facility] Comment on above: Order Comment: Speci men Type: FLUID SPECIMENOrdering Facility: [facility] Address: [address] [place] [address] Performed By: #### C CBF, [id number] ####[facility] LABCLIA [id number] [place] [address] [place] NEUT%, BF 26 % High 0-1 [facility] Comment on above: Order Comment: Speci men Type: FLUID SPECIMENOrdering Facility: [facility] Address: [address] [place] [address] Performed By: #### C CBF, [id number] ####[facility] LABCLIA [id number] [place] [address] [place] REAC LYMPH %, BF 4 % Normal [facility] Comment on above: Order Comment: Speci men Type: FLUID SPECIMENOrdering Facility: [facility] Address: [address] [place] [address] Performed By: #### C CBF, [id number] ####[facility] LABCLIA [id number] [place] [address] [place] MEDICAL EMERon 11-11-2024 MEDICAL KRISTINA Normal [facility] MEDICAL KRISTINA Normal [facility] Magnesium SerPl-mCncon 11-11 Magnesium [Mass/Vol] 2.3 mg/dL Normal 1.7-2.3 [facility] Comment on above: Order Comment: Speci men Type: BLOOD SPECIMENOrdering Facility: [facility] Address: [address] [place] [address] Performed By: #### 2 276-4, 65871-9, 87760-8, 92888-1, 2777-1, 89187-7 ####[facility] LABCLIA [id number] [place] [address] [place] NURSING PROGon 11-11-2024 NURSING PROG Normal [facility] PLT DEP.AB, UNF. HEPARINon 0 11-11-2024 % REL HIGH DOSE HEP PORCINE 0 % Normal [facility] Comment on above: Order Comment: Speci men Type: BLOOD SPECIMENOrdering Facility: [facility] Address: [address] [place] [address] Performed By: #### S ERORE ####[facility]ITY[facility]IA [id number] [place] [address] % REL LOW DOSE HEP PORCINE 0 % Normal [facility] Comment on above: Order Comment: Speci men Type: BLOOD SPECIMENOrdering Facility: [facility] Address: [address] [place] [address] Performed By: #### S ERORE ####[facility] [id number] [place] [address] SEROTONIN REL INTERP See Note Normal [facility] Comment on above: Order Comment: Speci men Type: BLOOD SPECIMENOrdering Facility: [facility] Address: [address] [place] [address] Result Comment: This patient's specimen demonstrates a [...] Additionalinformation regarding diagnosis of HIT is available Adcast.Datezr.INTERPRETIVE INFORMATION: ABRAHAM, Unfractionated HeparinThis test was developed and its performance characteristicsdetermined by [facility]. It has not been cleared orapproved by the [place] Food and Drug Administration. This test wasperformed in a CLIA certified laboratory and is intended forclinical purposes.Performed By: [facility] [place] [id number] Director: Lizandro Ordonez MD, PhDCLIA Number: [id number] Performed By: #### S ERORE ####[facility] [id number] [place] [address] ABRAHAM, UNFRACTIONATED HEPARIN Negative Normal Negative [facility] Comment on above: Order Comment: Speci men Type: BLOOD SPECIMENOrdering Facility: [facility] Address: [address] [place] [address] Performed By: #### S ERORE ####[facility]IESCLIA [id number] [place] [address] PROTHROMBIN GENE PCRon 11-11 PROTHROMBIN GENE MUTATION Normal [facility] Comment on above: Order Comment: Speci men Type: BLOOD SPECIMENOrdering Facility: [facility] Address: [address] [place] [address] Result Comment: Prot hrombin Gene MutationLaboratory Accession Number: [id number]:NORMALInterpretation:The DNA sample is negative for the c.*97G>A variant (legacy bfmp14815P>A) in the 3' untranslated region of the Factor II (F2) gene.This result is not associated with an increased risk of thromboembolicdisease. Thromboembolic disease is a multifactorial disorder and othercauses are not excluded by this result.Methodology:Isolated Genomic DNA from the patient's blood specimen is evaluatedfor the c*97G>A ([id number]) variant of the F2 gene [RefSeqNM_000506.53;GRCh38/hg38] by multiplex polymerase chain reaction (PCR)followed by melting curve analysis.Limitations:This assay is designed to detect the c.*97G>A (07434T>A) variant inthe F2 gene. Uncommon variants or single nucleotide polymorphisms mayaffect binding of probes and may rarely result in false negative,false positive or indeterminate results. This assay does not detectother disease-associated rare variants in F2 or other causes ofthromboembolic disease.Disclaimer:This test was developed and its performance characteristics determinedby [facility]'s Pathology and Laboratory Medicine Department. Ithas not been cleared or approved by the FDA. [facility] is regulated under CLIAas certified to perform high-complexity testing. This test is used forclinical purposes. It should not be regarded as investigational or forresearch.Test performed at [facility], [address] [place] [address]. [place] Number: [id number]:1) Inheritied Thrombophilias in . ACOG Practice Bulletin. No.197. [place] [employer]. ObseteGynecol 2018;132:e18-34.2) Elfego SR, Kinsey FR, Jeremy PH, and Bernice RIVERA. A commongenetic variation in the 3'-untranslated region of the prothrombingene is associated with elevated plasma prothrombin levels and anincrease in venous thrombosis. Blood 88:3698-703, 1995.3) Rica I, Justus V, Nayan C, Emily K. Alohufleewv32975U>T: 16 new cases, association with the 21665T>G polymorphism,and literature review. J Thromb Haemost. 2009;9:1585-7.Interpretation performed at remote location ([facility]) by Fifi España MD Performed By: #### P TGEN ####[facility] [id number] [place] [address] [place] PT panel Coag (PPP)on 2024 INR Coag (PPP) [Relative time] 2.3 {INR} High 0.9-1.3 [facility] Comment on above: Order Comment: Speci men Type: BLOOD SPECIMENOrdering Facility: [facility] Address: [address] [place] [address] Result Comment: Sarah min K Antagonist (VKA) Therapeutic Range: INR 2 to 3 (Target INR of 2.5)Note: For patients treated with VKA drugs, such as warfarin, the [place] [employer] 2012 Guideline recommends [...] 3).Tammi GONZALES, et al. Chest 2012, 141:7S-47SHector HIRSCH et al. [facility] 2017, 70: 252-289 Performed By: #### P TTA, 12034-6 ####[facility] LABCLIA [id number] [place] [address] [place] PT Coag (PPP) [Time] 23.1 s High 9.7-13.0 [facility] Comment on above: Order Comment: Speci men Type: BLOOD SPECIMENOrdering Facility: [facility] Address: [address] [place] [address] Performed By: #### P TTA, 24247-4 ####[facility] LABIA [id number] [address] [place] INR Coag (PPP) [Relative time] 2.1 {INR} High 0.9-1.3 [facility] Comment on above: Order Comment: Speci men Type: BLOOD SPECIMENOrdering Facility: [facility] Address: [address] [place] [address] [place] [address] Result Comment: Sarah min K Antagonist (VKA) Therapeutic Range: INR 2 to 3 (Target INR of 2.5)Note: For patients treated with VKA drugs, such as warfarin, the [place] [employer] 2012 Guideline recommends [...] 3).Tammi GONZALES, et al. Chest 2012, 141:7S-47SHector HIRSHC et al. [facility] 2017, 70: 252-289 Performed By: #### 3 4528-0 ####[facility] LABCLIA [id number] [place] [address] [place] PT Coag (PPP) [Time] 22.0 s High 9.7-13.0 [facility] Comment on above: Order Comment: Speci men Type: BLOOD SPECIMENOrdering Facility: [facility] Address: [address] [place] [address] Performed By: #### 3 4528-0 ####[facility] LABIA [id number] [place] [address] [place] PTT, ANTICOAGULANT THERAPYon 11-11-2024 aPTT Coag (PPP) [Time] EXTREMELY ABNORMA L RESULT. No clot detected at 320 seconds. Refer to anticoagulation nomogram for further actions. Critically abnormal (none) [facility] Comment on above: Order Comment: Speci men Type: BLOOD SPECIMENOrdering Facility: [facility] Address: [address] [place] [address] Result Comment: Resu lt rechecked.Sample checked for clot. Performed By: #### P [facility], 10290-0 ####[facility] LABIA [id number] [place] [address] [place] Phosphate SerPl-ncon 11-11 Phosphate [Mass/Vol] 2.6 mg/dL Low 2.7-4.8 [facility] Comment on above: Order Comment: Speci men Type: BLOOD SPECIMENOrdering Facility: [facility] Address: [address] [place] [address] Performed By: #### 2 276-4, 35240-2, 58477-3, 75125-5, 2777-1, 27160-3 ####[facility] LABIA [id number] [place] [address] [place] Prot Fld-mCncon 11-11-2024 Protein (Body fld) [Mass/Vol] 0.2 g/dL Normal See Comment [facility] Comment on above: Order Comment: Speci men Type: FLUID SPECIMENOrdering Facility: [facility] Address: [address] [place] [address] Result Comment: Sero us fluids: Effusions are [...] document C49A. PAULETTE Diaz: Clinical Laboratory Standards [place]: 2007. Performed By: #### 1 747-5, 1795-4, 37619-9, 2881-1 ####[facility] LABCLIA [id number] [place] [address] [place] Renal function 2000 panelon 11-11-2024 Albumin [Mass/Vol] 2.4 g/dL Low 3.9-4.9 [facility] Comment on above: Order Comment: Speci men Type: BLOOD SPECIMENOrdering Facility: [facility] Address: [address] [place] [address] Performed By: #### 2 4362-6, 4542-7 ####[facility] LABCLIA [id number] [place] [address] [place] Anion gap [Moles/Vol] 10 mmol/L Normal 8-15 [facility] Comment on above: Order Comment: Speci men Type: BLOOD SPECIMENOrdering Facility: [facility] Address: [address] [place] [address] Performed By: #### 2 4362-6, 4542-7 ####[facility] LABCLIA [id number] [facility] [address] [place] [address] [place] Calcium [Mass/Vol] 9.3 mg/dL Normal 8.5-10.2 [facility] Comment on above: Order Comment: Speci men Type: BLOOD SPECIMENOrdering Facility: [facility] Address: [address] [place] [address] Performed By: #### 2 4362-6, 4541-7 ####[facility] LABCLIA [id number] [facility] [place] [id number] [place] Chloride [Moles/Vol] 100 mmol/L Normal 98-107 [facility] Comment on above: Order Comment: Speci men Type: BLOOD SPECIMENOrdering Facility: [facility] Address: [address] [place] [address] Performed By: #### 2 4362-6, 4541-7 ####[facility] LABCLIA [id number] [address], [facility] [place] CO2 [Moles/Vol] 13 mmol/L Low 22-30 [facility] Comment on above: Order Comment: Speci men Type: BLOOD SPECIMENOrdering Facility: [facility] Address: [address] [place] [address] Performed By: #### 2 4362-6, 4541-7 ####[facility] LABCLIA [id number] [place] [id number] [place] Creatinine [Mass/Vol] 1.26 mg/dL High 0.73-1.22 [facility] Comment on above: Order Comment: Speci men Type: BLOOD SPECIMENOrdering Facility: [facility] Address: [address] [place] [address] Performed By: #### 2 4362-6, 4541-7 ####[facility] LABCLIA [id number] [place] [id number] [place] Creatinine and Glomerular filtration rate.predicted panel (S/P/Bld) 66 mL/min/1.73m??? Normal >=60 [facility] Comment on above: Order Comment: Ezekiel ramirez Type: BLOOD SPECIMENOrdering Facility: [facility] Address: [address] [place] [address] Result Comment: Patric mated Glomerular Filtration Rate [...] GFR. Performed By: #### 2 4362-6, 4542-7 ####[facility] LABIA [id number] [place] [address] [place] Glucose [Mass/Vol] 255 mg/dL High 74-99 [facility] Comment on above: Order Comment: Ezekiel ramirez Type: BLOOD SPECIMENOrdering Facility: [facility] Address: [address] [place] [address] Result Comment: The [place] [employer] (ADA) provides guidance for cutoff [...] Standards of Medical Care in Diabetes 2016, [place] [employer]. Diabetes Care. 2016.39(Suppl 1). Performed By: #### 2 4362-6, 4542-7 ####[facility] LABIA [id number] [place] [id number] [place] Phosphate [Mass/Vol] 2.5 mg/dL Low 2.7-4.8 [facility] Comment on above: Order Comment: Speci men Type: BLOOD SPECIMENOrdering Facility: [facility] Address: [address] [place] [address] Performed By: #### 2 4362-6, 4541-7 ####[facility] LABCLIA [id number] [place] [id number] [place] Potassium [Moles/Vol] 4.4 mmol/L Normal 3.7-5.1 [facility] Comment on above: Order Comment: Speci men Type: BLOOD SPECIMENOrdering Facility: [facility] Address: [address] [place] [address] Performed By: #### 2 4362-6, 7 ####[facility] LABIA [id number] [place] [address] [place] Sodium [Moles/Vol] 123 mmol/L Low 136-144 [facility] Comment on above: Order Comment: Speci men Type: BLOOD SPECIMENOrdering Facility: [facility] Address: [address] [place] [address] Performed By: #### 2 4362-6, 7 ####[facility] LABIA [id number] [place] [address] [place] Urea nitrogen [Mass/Vol] 21 mg/dL Normal 9-24 [facility] Comment on above: Order Comment: Speci men Type: BLOOD SPECIMENOrdering Facility: [facility] Address: [address] [place] [address] Performed By: #### 2 4362-6, 7 ####[facility] LABIA [id number] [place] [id number] [place] Retics #on 11-11-2024 Reticulocytes (Bld) [#/Vol] 0.19383 10*3/uL High 0.018-0.100 [facility] Comment on above: Order Comment: Speci men Type: BLOOD SPECIMENOrdering Facility: [facility] Address: [address] [place] [address] Performed By: #### I PFR, 10744-6, 18687-1 ####[facility] LABIA [id number] [place] [address] [place] Reticulocytes (Bld) [#/Vol]o n 11-11-2024 Reticulocytes/100 RBC (Bld) 4.1 % High 0.4-2.0 [facility] Comment on above: Order Comment: Speci men Type: BLOOD SPECIMENOrdering Facility: [facility] Address: [address] [place] [address] Performed By: #### I PFR, 45193-8, 33338-5 ####[facility] LABIA [id number] [place] [address] [place] SEPSIS LACTATEon 11-11-2024 Lactate [Moles/Vol] 3.4 mmol/L High <=2.0 [facility] Comment on above: Order Comment: Speci men Type: BLOOD SPECIMENOrdering Facility: [facility] Address: [address] [place] [address] Performed By: #### S LACT ####[facility] [id number] [address] [place] Lactate [Moles/Vol] 3.6 mmol/L High <=2.0 [facility] Comment on above: Order Comment: Speci men Type: BLOOD SPECIMENOrdering Facility: [facility] Address: [address] [place] [address] Performed By: #### S LACT ####[facility] [id number] [place] [id number] [place] Screen dRVVTon 11-11-2024 dRVVT Coag (PPP) [Time] 42.6 s Normal 32.0-45.7 [facility] Comment on above: Order Comment: Speci men Type: BLOOD SPECIMENOrdering Facility: [facility] Address: [address] [place] [address] Performed By: #### L [id number], HCOAG, 6303-2, 02313-2, 62063-5 ####[facility] LABCLIA [id number] [place] [address] [place] US ABD LIVER VASCULARon 04-1 US ABD LIVER VASCULAR Normal [facility] US DOPPLER COMPLETEon 2024 US DOPPLER COMPLETE Normal [facility] XR ABDOMEN 1V SUPINEon 11-11 XR ABDOMEN 1V SUPINE Normal [facility] XR CHEST 1V FRONTAL PORTon 0 11-11-2024 XR CHEST 1V FRONTAL PORT Normal [facility] XR CHEST 1V FRONTAL PORT Normal [facility] aPTT PPPon 11-11-2024 aPTT Coag (PPP) [Time] 41.7 s High 23.0-32.4 Cl [facility] Comment on above: Order Comment: Speci men Type: BLOOD SPECIMENOrdering Facility: [facility] Address: [address] [place] [address] Performed By: #### 3 255-7, 41887-6 ####[facility] [id number] [place] [address] [place] dRVVT Coag (PPP) [Time]on dRVVT factor substitution immediately after 1:2 addition of normal plasma Coag (PPP) [Time] 35.4 seconds Normal 32.0-45.7 [facility] Comment on above: Order Comment: Speci men Type: BLOOD SPECIMENOrdering Facility: [facility] Address: [address] [place] [address] Performed By: #### L [id number], HCOAG, 6303-2, 74470-8, 94232-1 ####[facility] LABCLIA [id number] [place] [address] [place] dRVVT/dRVVT.excess phospholipid Coag (PPP) [Ratio] 0.91 Normal <1.32 [facility] Comment on above: Order Comment: Speci men Type: BLOOD SPECIMENOrdering Facility: [facility] Address: [address] [place] [address] Performed By: #### L [id number], HCOAG, 6303-2, 22977-0, 74466-1 ####[facility] LABCLIA [id number] [address] [address] [place] ALP [Catalytic activity/Vol] Ordered By: Kathie Powers on 11-10-2024 Serum or plasma alkaline phosphatase measurement 310 U/L High 40-129 [facility] ALT [Catalytic activity/Vol] Ordered By: Kathie Powers on 11-10-2024 Serum or plasma alanine aminotransferase (ALT) measurement 36 U/L <47 [facility] Absolute lymphocyte countOrd ered By: Kathie Powers on 11-10-2024 Lymphocytes Auto (Unsp spec) [#/Vol] 1.30 10*3/uL 0.83-4.51 [facility] Absolute neutrophil countOrd ered By: Kathie Powers on 11-10-2024 Absolute neutrophil count 16.2 X10^3/uL High 2.0-7.7 [facility] Albumin [Mass/Vol]Ordered By : Kathie Powers on 11-10-2024 Serum or plasma albumin measurement (mass/volume) 2.3 g/dL Low 3.5-5.0 [facility] Albumin/Globulin [Mass ratio ]Ordered By: Kathie Powers on 11-10-2024 Serum or plasma albumin/globulin mass ratio 0.7 RATIO Low 0.9-2.4 [facility] Anion gap [Moles/Vol]Ordered By: Kathie Powers on 11-10-2024 Anion gap in Serum or Plasma 11 5-15 [facility] Anion gap in Serum or Plasma Ordered By: Kathie Powers on 11-10-2024 Anion gap [Moles/Vol] 11 mmol/L 5-15 [facility] Automated lymphocyte count a s percentage of total leukocytesOrdered By: Kathie Powers on 11-10-2024 Lymphocytes/100 WBC Auto (Unsp spec) 6.6 % Low 19-41 [facility] BUN/creatinine ratioOrdered By: Kathie Powers on 11-10-2024 Urea nitrogen/Creatinine [Mass ratio] 16.6 mg/mg 10- [facility] BUN/creatinine ratio 16.6 RATIO 10-20 [facility] Bacteria LM.HPF (Urine sed) [#/Area]Ordered By: Kathie Powers on 11-10-2024 Urine sediment bacteria count by microscopy (number/high power field) 2+ /hpf None Seen [facility] Basophil percentageOrdered B y: Kathie Powers on 11-10-2024 Basophils/100 WBC (Bld) 0.5 % 0-1 [facility] Basophil percentage 0.5 % 0-1 [facility] Bilirubin Test strip Ql (U)O rdered By: Kathie Powers on 11-10-2024 Bilirubin Ql (U) Negative Negative [facility] Urine total bilirubin detection by test strip Negative Negative [facility] Bilirubin, totalOrdered By: Kathie Powers on 11-10-2024 Bilirubin [Mass/Vol] 2.09 mg/dL High 0.00-1.30 [facility] Bilirubin, total 2.09 mg/dL High 0.00-1.30 [facility] Calcium [Mass/Vol]Ordered By : Kathie Powers on 11-10-2024 Serum or plasma calcium measurement (mass/volume) 9.2 mg/dL 7.6-11.0 [facility] Carbon dioxide, total [Moles /volume] in Central venous bloodOrdered By: Kathie Powers on 11-10-2024 CO2 [Moles/Vol] 13.3 mmol/L Low 21.0-32.0 [facility] Carbon dioxide, total [Moles/volume] in Central venous blood 13.3 mmol/L Low 21.0-32.0 [facility] Chloride assayOrdered By: Paulette Powers on 11-10-2024 Chloride [Moles/Vol] 99 mmol/L 98-108 [facility] Chloride assay 99 mmol/L 98-108 [facility] Clarity (U)Ordered By: Kathie Powers on 11-10-2024 Urine clarity Turbid Clear [facility] Color (U)Ordered By: Kathie Alcaraz iesabiha on 11-10-2024 Urine color determination Brown Yellow [facility] Creatinine [Mass/Vol]Ordered By: Kathie Powers on 11-10-2024 Serum creatinine measurement (mass/volume) 1.13 mg/dL 0.70-1.20 [facility] Eosinophil percentageOrdered By: Kathie Powers on 11-10-2024 Eosinophils/100 WBC (Bld) 1.9 % 0-5 [facility] Eosinophil percentage 1.9 % 0-5 [facility] Erythrocyte distribution wid th (RBC) [Ratio]Ordered By: Kathie Powers on 11-10-2024 Erythrocyte distribution width ratio 18.1 % High 11.6-14.6 [facility] Erythrocyte distribution width standard deviation 62.1 fl High 35.1-43.9 [facility] Erythrocyte distribution wid th ratioOrdered By: Kathie oPwers on 11-10-2024 Erythrocyte distribution width (RBC) [Ratio] 18.1 % High 11.6-14.6 [facility] Erythrocyte distribution wid th standard deviationOrdered By: Kathie Powers on 11-10-2024 Erythrocyte distribution width (RBC) [Ratio] 62.1 fl High 35.1-43.9 [facility] Estimation of creatinine [place]ol[place] aranceOrdered By: Kathie Powers on 11-10-2024 Estimation of creatinine clearance 88.23 ml/min 50-250 [facility] GFR/1.73 sq M.predicted niki g non-blacks MDRD (S/P/Bld) [Vol rate/Area]Ordered By: Kathie Powers on 11-10-2024 Glomerular filtration rate (GFR) estimation/1.73 sq m using serum, plasma, or whole b [address] >60 [facility] Glomerular filtration rate ( GFR) estimation/1.73 sq m using serum, plasma, or whole bOrdered By: Kathie Powers on 11-10-2024 GFR/1.73 sq M.predicted among non-blacks MDRD (S/P/Bld) [Vol rate/Area] 75 mL/min/{1.73_m2} >60 [facility] Glucose Ql (U)Ordered By: Paulette Powers on 11-10-2024 Urine glucose detection Normal mg/dl Normal [facility] Glucose [Mass/Vol]Ordered By : Kathie Powers on 11-10-2024 Serum glucose measurement (mass/volume) 298 mg/dL High 70-99 [facility] de[facility]dered By: Kathie Powers on 11-10-2024 Glucose [Mass/Vol] 265 mg/dL High 74-106 [facility] Glucose measurement at bedside 265 mg/dL High 74-106 [facility] Hematocrit Auto (Bld) [Volum e fraction]Ordered By: Kathie Powers on 11-10-2024 Hematocrit (Bld) [Volume fraction] 32.9 % Low 40-54 [facility] Automated blood hematocrit (percentage) 32.9 % Low 40-54 [facility] Hemoglobin measurementOrdere d By: Kathie Powers on 11-10-2024 Hemoglobin (Bld) [Mass/Vol] 11.3 g/dL Low 13.0-16.5 [facility] Hemoglobin measurement 11.3 g/dL Low 13.0-16.[address] [facility] Immature granulocytes/100 WB C Auto (Bld)Ordered By: Kathie Powers on 11-10-2024 Immature granulocytes/100 WBC (Bld) 1.100 % High 0.0-0.9 [facility] Automated immature granulocyte percentage 1.100 % High 0.0-0.9 [facility] International normalized rat io (INR) calculationOrdered By: Kathie Powers on 11-10-2024 International normalized ratio (INR) calculation 3.1 [facility] Ketones Test strip Ql (U)Ord ered By: Kathie Powers on 11-10-2024 Ketones Ql (U) 5 mg/dl High Negative [facility] Urine ketones detection by test strip 5 mg/dl High Negative [facility] Leukocyte esterase Test stri p Ql (U)Ordered By: Kathie Powers on 11-10-2024 Urine leukocyte esterase detection by dipstick 500 /ul High Negative [facility] Lymphocytes Auto (Unsp spec) [#/Vol]Ordered By: Kathie Powers on 11-10-2024 Absolute lymphocyte count 1.30 X10^3/uL 0.83-4.51 [facility] Lymphocytes/100 WBC Auto (Un sp spec)Ordered By: Kathie Powers on 11-10-2024 Automated lymphocyte count as percentage of total leukocytes 6.6 % Low 19-41 [facility] MCV (RBC) [Entitic vol]Order ed By: Kathie Powers on 11-10-2024 MCV (mean corpuscular volume) determination 92.7 fL 80-94 [facility] MCV (mean corpuscular volume ) determinationOrdered By: Kathie Powers on 11-10-2024 MCV (RBC) [Entitic vol] 92.7 fL 80-94 [facility] Mean corpuscular hemoglobin (MCH) determinationOrdered By: Kathie Powers on 11-10-2024 MCH (RBC) [Entitic mass] 31.8 pg 27.0-32.0 [facility] Mean corpuscular hemoglobin (MCH) determination 31.8 pg 27.0-32.0 [facility] Mean corpuscular hemoglobin concentration (MCHC) determinationOrdered By: Kathie Powers on 11-10-2024 Mean corpuscular hemoglobin concentration (MCHC) determination 34.3 g/dL 32-36 [facility] Mean platelet volume determi nationOrdered By: Kathie Powers on 11-10-2024 Mean platelet volume determination 12.2 fl High 6.2-12.0 [facility] Microscopic analysis of urin e for red blood cells (RBC)Ordered By: Kathie Powers on 11-10-2024 Microscopic analysis of urine for red blood cells (RBC) > 100 SEEN /hpf 0-5 [facility] Monocyte percentageOrdered B y: Kathie Powers on 11-10-2024 Monocytes/100 WBC (Bld) 6.9 % 0-10 [facility] Monocyte percentage 6.9 % 0-10 [facility] Mucus LM Ql (Urine sed)Order ed By: Katihe Powers on 11-10-2024 Mucus Ql (Urine sed) 0 SEEN /hpf [facility] Neutrophil percentageOrdered By: Kathie Powers on 11-10-2024 Neutrophils/100 WBC (Bld) 83.0 % High 47-70 [facility] Neutrophil percentage 83.0 % High 47-70 [facility] Nitrite Test strip Ql (U)Ord ered By: Kathie Powers on 11-10-2024 Nitrite Ql (U) Positive High Negative [facility] Urine nitrite test by dipstick Positive High Negative [facility] No Panel InformationOrdered By: Kathie Powers on 11-10-2024 58 U/L High <38 [facility] Nucleated red blood cell per centageOrdered By: Kathie Powers on 11-10-2024 Nucleated red blood cell percentage 0 % 0-5 [facility] Platelet countOrdered By: Paulette Powers on 11-10-2024 Platelets (Bld) [#/Vol] 58 10*3/uL Low 150-450 [facility] Platelet count 58 K/mm3 Low 150-450 [facility] Potassium (Unsp spec) [Mass/ Vol]Ordered By: Kathie Powers on 11-10-2024 Potassium measurement (mass/volume) 3.6 mmol/L 3.3-5.1 [facility] Potassium measurement (mass/ volume)Ordered By: Kathie Powers on 11-10-2024 Potassium (Unsp spec) [Mass/Vol] 3.6 mmol/L 3.3-5.1 [facility] Protein Test strip Ql (U)Ord ered By: Kathie Powers on 11-10-2024 Protein Ql (U) 500 mg/dl High Negative [facility] Urine protein assay by test strip, semi-quantitative 500 mg/dl High Negative [facility] Prothrombin timeOrdered By: Kathie Powers on 11-10-2024 PT Coag (PPP) [Time] 32.3 s High 11.7-14.9 [facility] Prothrombin time 32.3 SECONDS High 11.7-14.9 [facility] RBC Auto (Bld) [#/Vol]Ordere d By: Kathie Powers on 11-10-2024 RBC (Bld) [#/Vol] 3.55 10*6/uL Low 4.6-6.2 [facility] Automated blood erythrocyte count 3.55 M/mm3 Low 4.6-6.2 [facility] Serum creatinine measurement (mass/volume)Ordered By: Kathie Powers on 11-10-2024 Creatinine [Mass/Vol] 1.13 mg/dL 0.70-1.20 [facility] Serum globulin measurementOr dered By: Kathie Powers on 11-10-2024 Globulin (S) [Mass/Vol] 3.4 g/dL 2.2-4.2 [facility] Serum globulin measurement 3.4 g/dL 2.2-4.2 [facility] Serum glucose measurement (m ass/volume)Ordered By: Kathie Powers on 11-10-2024 Glucose [Mass/Vol] 298 mg/dL High 70-99 [facility] Serum or plasma alanine thomas otransferase (ALT) measurementOrdered By: Kathie Powers on 11-10-2024 ALT [Catalytic activity/Vol] 36 U/L <47 [facility] Serum or plasma albumin roosevelt urement (mass/volume)Ordered By: Kathie Powers on 11-10-2024 Albumin [Mass/Vol] 2.3 g/dL Low 3.5-5.0 [facility] Serum or plasma albumin/glob ulin mass ratioOrdered By: Kathie Powers on 11-10-2024 Albumin/Globulin [Mass ratio] 0.7 {ratio} Low 0.9-2.4 [facility] Serum or plasma alkaline kendrick sphatase measurementOrdered By: Kathie Powers on 11-10-2024 ALP [Catalytic activity/Vol] 310 U/L High 40-129 [facility] Serum or plasma calcium roosevelt urement (mass/volume)Ordered By: Kathie Powers on 11-10-2024 Calcium [Mass/Vol] 9.2 mg/dL 7.6-11.0 [facility] Serum or plasma urea nitroge n measurement (mass/volume)Ordered By: Kathie Powers on 11-10-2024 Urea nitrogen [Mass/Vol] 19 mg/dL 4-19 [facility] Sodium levelOrdered By: Javed Powers on 11-10-2024 Sodium [Moles/Vol] 123 mmol/L Low 133-145 [facility] Sodium level 123 mmol/L Low 133-145 [facility] Specific gravity (U) [Rel de nsity]Ordered By: Kathie Powers on 11-10-2024 Urine specific gravity measurement 1.015 1.002-1.030 [facility] Squamous epithelial cells de tection in urine sediment by light microscopyOrdered By: Kathie Powers on 11-10-2024 Epithelial cells.squamous LM Ql (Urine sed) 0 SEEN /hpf 0-5 [facility] Squamous epithelial cells detection in urine sediment by light microscopy 0 SEEN /hpf [facility] Total proteinOrdered By: Tyree Powers on 11-10-2024 Protein [Mass/Vol] 5.7 g/dL Low 5.9-8.4 [facility] Total protein 5.7 g/dL Low 5.9-8.4 [facility] Urea nitrogen [Mass/Vol]Orde red By: Kathie Powers on 11-10-2024 Serum or plasma urea nitrogen measurement (mass/volume) 19 mg/dL 4-19 [facility] Urine blood detectionOrdered By: Kathie Powers on 11-10-2024 Urine blood detection 250 /ul High Negative [facility] Urine clarityOrdered By: Tyree Powers on 11-10-2024 Clarity (U) Turbid Clear [facility] Urine color determinationOrd ered By: Kathie Powers on 11-10-2024 Color (U) Brown Yellow [facility] Urine glucose detectionOrder ed By: Kathie Powers on 11-10-2024 Glucose Ql (U) Normal mg/dl Normal [facility] Urine leukocyte esterase det ection by dipstickOrdered By: Kathie Powers on 11-10-2024 Leukocyte esterase Test strip Ql (U) 500 /ul High Negative [facility] Urine pHOrdered By: Kathie garcias on 11-10-2024 pH (U) 6.5 [pH] 5.0 - 8.0 [facility] Urine sediment bacteria coun t by microscopy (number/high power field)Ordered By: Kathie Powers on 11-10-2024 Bacteria LM.HPF (Urine sed) [#/Area] 2 /[HPF] None Seen [facility] Urine specific gravity measu rementOrdered By: Kathie Powers on 11-10-2024 Specific gravity (U) [Rel density] 1.015 1.002-1.030 [facility] Urine urobilinogen measureme ntOrdered By: Kathie Powers on 11-10-2024 Urobilinogen Ql (U) 1 mg/dl High Normal [facility] Urobilinogen Ql (U)Ordered B y: Kathie Powers on 11-10-2024 Urine urobilinogen measurement 1 mg/dl High Normal [facility] White blood cell (WBC) count Ordered By: Kathie Powers on 11-10-2024 WBC (Bld) [#/Vol] 19.6 10*3/uL High 4.4-11.0 [facility] White blood cell (WBC) count 19.6 K/mm3 High 4.4-11.0 [facility] White blood cell countOrdere d By: Kathie Powers on 11-10-2024 White blood cell count 5-10 SEEN /hpf 0-5 [facility] White blood cell count 5-10 SEEN /hpf 0-5 [facility] pH (U)Ordered By: Kathie aguilar on 11-10-2024 Urine pH 6.5 5.0 - 8.0 [facility] Blood manual differential co mment interpretation (narrative result)Ordered By: Kathie Powers on 11-09-2024 Manual differential comment Marco Antonio (Bld) [Interp] SCANNED [facility] Lactic acid measurementOrder ed By: Kathie Powers on 11-09-2024 Lactic acid measurement 2.4 mmol/L High 0.0-2.0 [facility] Manual differential comment Marco Antonio (Bld) [Interp]Ordered By: Kathie Powers on 11-09-2024 Blood manual differential comment interpretation (narrative result) SCANNED [facility] Pathologist review Marco Antonio (Unsp spec) [Interp]Ordered By: Kathie Powers on 11-09-2024 Review by pathologist N/A [facility] Platelet estimateOrdered By: Kathie Powers on 11-09-2024 Platelets LM Ql (Bld) MKD DEC ADEQ [facility] Platelets LM Ql (Bld)Ordered By: Kathie Powers on 11-09-2024 Platelet estimate [facility] Review by pathologistOrdered By: Kathie Powers on 11-09-2024 Pathologist review Marco Antonio (Unsp spec) [Interp] N/A [facility] Venous blood ammonia measure mentOrdered By: Kathie Powers on 11-09-2024 Ammonia (P) [Moles/Vol] 104.0 umol/L High 16-60 [facility] Venous blood ammonia measurement 104.0 umol/L High 16-60 [facility] Lipase measurementOrdered By : Kathie Powers on 11-08-2024 Lipase measurement 94 U/L High 13-75 [facility] Magnesium (Unsp spec) [Mass/ Vol]Ordered By: Kathie Powers on 11-08-2024 Magnesium measurement (mass/volume) 2.4 mg/dL High 1.5-2.2 [facility] Magnesium measurement (mass/ volume)Ordered By: Kathie Powers on 11-08-2024 Magnesium (Unsp spec) [Mass/Vol] 2.4 mg/dL High 1.5-2.2 [facility] Serum phosphorus measurement Ordered By: Kathie Powers on 11-08-2024 Serum phosphorus measurement 1.6 mg/dL Low 2.7-4.5 [facility] Blood polychromasia detectio n by light microscopyOrdered By: Hill Acuña on 11-07-2024 Polychromasia LM Ql (Bld) 1+ [facility] Blood polychromasia detection by light microscopy 1+ [facility] Ovalocyte detectionOrdered B y: Hill Acuña on 11-07-2024 Ovalocytes LM Ql (Bld) 1+ [facility] Band form neutrophils/100 WB C (Bld)Ordered By: Hill Acuña on 11-03-2024 Blood band neutrophil count as percentage of total leukocytes 6 % High 0-5 [facility] Blood band neutrophil count as percentage of total leukocytesOrdered By: Hill Acuña on 11-03-2024 Band form neutrophils/100 WBC (Bld) 6 % High 0-5 [facility] Blood eosinophils/100 leukoc ytesOrdered By: Hill Acuña on 11-03-2024 Eosinophils/100 WBC (Bld) 1 % 0-5 [facility] Blood lymphocytes/100 leukoc ytesOrdered By: Hill Acuña on 11-03-2024 Lymphocytes/100 WBC (Bld) 2 % Low 19-41 [facility] Blood lymphocytes/100 leukocytes 2 % 0-10 [facility] Blood metamyelocytes/100 bri kocytesOrdered By: Hill Acuña on 11-03-2024 Metamyelocytes/100 WBC (Bld) 1 % 0-1 [facility] Blood metamyelocytes/100 leukocytes 1 % 0-5 [facility] Blood monocytes/100 leukocyt esOrdered By: Hill Acuña on 11-03-2024 Monocytes/100 WBC (Bld) 2 % 0-10 [facility] Blood segmented neutrophils/ 100 leukocytesOrdered By: Hill Acuña on 11-03-2024 Segmented neutrophils/100 WBC (Bld) 85 % High 47-70 [facility] Cells counted Molgen (Bld/Ti ss) [#]Ordered By: Hill Acuña on 11-03-2024 Total cell count [address] [facility] Segmented neutrophils/100 WB C (Bld)Ordered By: Hill Acuña on 11-03-2024 Blood segmented neutrophils/100 leukocytes 85 % High 47-70 [facility] Total cell countOrdered By: Hill Acuña on 11-03-2024 Cells counted Molgen (Bld/Tiss) [#] [address] [facility] Erythrocyte morphology asses smentOrdered By: Hill Acuña on 11-02-2024 RBC morphology finding Nom (Bld) NORM C+C NORMAL NORM C&C [facility] RBC morphology finding Nom ( Bld)Ordered By: Hill Acuña on 11-02-2024 Erythrocyte morphology assessment NORM C+C NORMAL NORM C&C [facility] Trough vancomycin levelOrder ed By: Buster Fuchs on 11-01-2024 Vancomycin trough [Mass/Vol] 17.7 ug/mL High 5.0-15.0 [facility] Vancomycin trough [Mass/Vol] Ordered By: Buster Fuchs on 11-01-2024 Trough vancomycin level 17.7 ug/mL High 5.0-15.0 [facility] Activated partial thrombopla stin time (aPTT) in platelet poor plasma by coagulation aOrdered By: Buster Fuchs on 10-31-2024 aPTT Coag (PPP) [Time] 42.7 s High 24.1-36.[address] [facility] aPTT Coag (PPP) [Time]Ordere d By: Buster Fuchs on 10-31-2024 Activated partial thromboplastin time (aPTT) in platelet poor plasma by coagulation a 42.7 Seconds High 24.1-36.2 [facility] C. difficile Ql (Stl)Ordered By: Hill Wright on 10-30-2024 Stool Clostridium difficile detection Toxigenic C. difficile Abnormal [facility] Clostridium difficile detect ion by polymerase chain reactionOrdered By: Hill Wright on 10-30-2024 C. difficile DNA ANANTH+probe Ql (Unsp spec) [facility] Stool Clostridium difficile detectionOrdered By: Hill Wright on 10-30-2024 C. difficile Ql (Stl) Toxigenic C. difficile Abnormal [facility] Stool lactoferrin detection by immunoassayOrdered By: Hill Wright on 10-30-2024 Lactoferrin IA Ql (Stl) [facility] Arterial patency Wrist arter y --pre arterial punctureOrdered By: Buster Fuchs on 10-29-2024 Assessment of wrist artery patency prior to arterial puncture Positive [facility] Assessment of wrist artery p atency prior to arterial punctureOrdered By: Buster Fuchs on 10-29-2024 Arterial patency Wrist artery --pre arterial puncture Positive [facility] Base excess Calc (BldV) [Mol es/Vol]Ordered By: Buster Fuchs on 10-29-2024 Blood base excess determination -10 mmol/L [facility]22 [facility] Blood base excess determinat ionOrdered By: Buster Fuchs on 10-29-2024 Base excess Calc (BldV) [Moles/Vol] -10 mmol/L [facility]22 [facility] Blood bicarbonate measuremen tOrdered By: Buster Fuchs on 10-29-2024 HCO3 (Bld) [Moles/Vol] 15.2 mmol/L Low 22-26 [facility] Blood bicarbonate measurement 15.2 mmol/L Low 22-26 [facility] Blood cultureOrdered By: Hugo Wright on 10-29-2024 Bacteria identified Cx Nom (Bld) No growth in [address] [facility] Blood culture No growth in 5 days. [facility] Calculated very low density lipoprotein (VLDL) cholesterol measurementOrdered By: Hill Wright on 10-29-2024 Calculated very low density lipoprotein (VLDL) cholesterol measurement 17 mg/dL 5-40 [facility] Calculated very low density lipoprotein (VLDL) cholesterol measurement 17 mg/dL 5-40 [facility] Cholesterol [Mass/Vol]Ordere d By: Hill Wright on 10-29-2024 Serum or plasma cholesterol measurement (mass/volume) 132 mg/dL <201 [facility] Cholesterol in HDL [Mass/Vol ]Ordered By: Hill Wright on 10-29-2024 Serum or plasma cholesterol in HDL measurement (mass/volume) 33 mg/dL Low >40 [facility] Determination of fraction of inspired oxygenOrdered By: Buster Fuchs on 10-29-2024 Determination of fraction of inspired oxygen 21.0 [facility] Electrocardiogram reportOrde red By: Jeovanny Ramos on 10-29-[address] [facility] Other Phone: LDL calc ser/plasOrdered By: Hill Wright on 10-29-2024 Cholesterol in LDL [Mass/Vol] 83 mg/dL [facility] Measurement, pHOrdered By: Stacy Fuchs on 10-29-2024 pH (Unsp spec) 7.39 [pH] 7.35-7.45 [facility] No Panel InformationOrdered By: Buster Fuchs on 10-29-[address] [facility] L Radial [facility] Not entered [facility] Room Air [facility] No Panel InformationOrdered By: Hill Wright on 10-29-2024 10.20 ug/dL 6.02-18.40 [facility] Osmolality, serumOrdered By: Hill Wright on 10-29-2024 Osmolality, serum 292 mOsm/KG 275-295 [facility] Oxygen saturation measuremen tOrdered By: Buster Fuchs on 10-29-2024 Oxygen saturation measurement 93 % Low 95-99 [facility] Partial pressure of carbon d ioxide measurementOrdered By: Buster Fuchs on 10-29-2024 Partial pressure of carbon dioxide measurement 25.1 mmHg Low 35-45 [facility] Partial pressure of oxygen m easurementOrdered By: Buster Fuchs on 10-29-2024 Partial pressure of oxygen measurement 67 mmHG Low 75-100 [facility] Screening total cholesterol/ high density lipoprotein (HDL) cholesterol ratioOrdered By: Hill Wright on 10-29-2024 Screening total cholesterol/high density lipoprotein (HDL) cholesterol ratio 4.04 [facility] Serum or plasma cholesterol in HDL measurement (mass/volume)Ordered By: Hill Wright on 10-29-2024 Cholesterol in HDL [Mass/Vol] 33 mg/dL Low >40 [facility] Serum or plasma cholesterol measurement (mass/volume)Ordered By: Hill Wright on 10-29-2024 Cholesterol [Mass/Vol] 132 mg/dL <[address] [facility] Total carbon dioxide measure mentOrdered By: Buster Fuchs on 10-29-2024 CO2 [Moles/Vol] 16 mmol/L [facility] Total carbon dioxide measurement 16 mmol/L [facility] Triglycerides measurementOrd ered By: Hill Wright on 10-29-2024 Triglycerides measurement 83 mg/dL [facility] Urine cultureOrdered By: Viraj Dunn on 10-29-2024 Bacteria identified Cx Nom (U) Culture exhibits no growth. [facility] Urine culture Culture exhibits no growth. [facility] pH (Unsp spec)Ordered By: Marianna Fuchs on 10-29-2024 Measurement, pH 7.39 7.35-7.45 [facility] Absolute neutrophil countOrd ered By: Alber Dunn on 10-28-2024 Neutrophils (Bld) [#/Vol] 19.0 10*3/uL High 2.0-7.7 [facility] Amorphous sediment LM Ql (Ur ine sed)Ordered By: Alber Dunn on 10-28-2024 Amorphous sediment detection in urine sediment by light microscopy 1+ URATE [facility] Amorphous sediment detection in urine sediment by light microscopyOrdered By: Alber Dunn on 10-28-2024 Amorphous sediment LM Ql (Urine sed) 1+ URATE [facility] Anion gap in Serum or Plasma Ordered By: Alber Dunn on 10-28-2024 Anion gap [Moles/Vol] 17 mmol/L High 5-15 [facility] BUN/creatinine ratioOrdered By: Alber Dunn on 10-28-2024 Urea nitrogen/Creatinine [Mass ratio] 18.8 mg/mg 10-20 [facility] Basophil percentageOrdered B y: Alber Dunn on 10-28-2024 Basophils/100 WBC (Bld) 0.2 % 0-1 [facility] Bilirubin Test strip Ql (U)O rdered By: Alber Dunn on 10-28-2024 Bilirubin Ql (U) 1 mg/dL High Negative [facility] Comment on above: COLOR OF URINE MAY A FFECT DIPSTICK RESULTS. Bilirubin, totalOrdered By: Alber Dunn on 10-28-2024 Bilirubin [Mass/Vol] 1.86 mg/dL High 0.00-1.30 [facility] Carbon dioxide, total [Moles /volume] in Central venous bloodOrdered By: Alber Dunn on 10-28-2024 CO2 [Moles/Vol] 12.4 mmol/L Low 21.0-32.0 [facility] Chloride assayOrdered By: Hernesto Dunn on 10-28-2024 Chloride [Moles/Vol] 98 mmol/L 98-108 [facility] Eosinophil percentageOrdered By: Alber Dunn on 10-28-2024 Eosinophils/100 WBC (Bld) 1.4 % 0-5 [facility] Epithelial cells.squamous LM Ql (Urine sed)Ordered By: Alber Dunn on 10-28-2024 Epithelial cells.squamous LM.HPF (Urine sed) [#/Area] 5 /[HPF] 0-5 [facility] Erythrocyte distribution wid th ratioOrdered By: Alber Dunn on 10-28-2024 Erythrocyte distribution width (RBC) [Ratio] 19.1 % High 11.6-14.6 [facility] Erythrocyte distribution wid th standard deviationOrdered By: Alber Dunn on 10-28-2024 Erythrocyte distribution width (RBC) [Entitic vol] 62.7 fL High 35.1-43.9 [facility] GFR/1.73 sq M.predicted niki g non-blacks MDRD (S/P/Bld) [Vol rate/Area]Ordered By: Alber Dunn on 10-28-2024 Estimated GFR (MDRD) Non-Af Amer 62 >60 [facility] Comment on above: mL/min/1.73m2 CKD-EP I Creatinine Equation (2020) Glucose Ql (U)Ordered By: Hernesto Dunn on 10-28-2024 Glucose (U) [Mass/Vol] 50 mg/dL High Normal [facility] HbA1c (Bld) [Mass fraction]O rdered By: Hill Wright on 10-28-2024 Hemoglobin A1c percentage 6.7 % >5.7 [facility] Hematocrit Auto (Bld) [Volum e fraction]Ordered By: Alber Dunn on 10-28-2024 Hematocrit (Bld) [Volume fraction] 37.3 % Low 40-54 [facility] Hemoglobin A1c percentageOrd ered By: Hill Wright on 10-28-2024 HbA1c (Bld) [Mass fraction] 6.7 % >5.7 [facility] Hemoglobin measurementOrdere d By: Alber Dunn on 10-28-2024 Hemoglobin (Bld) [Mass/Vol] 12.7 g/dL Low 13.0-16.5 [facility] Immature granulocytes/100 WB C Auto (Bld)Ordered By: Alber Dunn on 10-28-2024 Immature granulocytes/100 WBC (Bld) 1.400 % High 0.0-0.9 [facility] Comment on above: IG% - Immature Granu locytes (promyelocytes, myelocytes and metamyelocytes) > 1% indicates that a LEFT SHIFT is Present. Ketones Test strip Ql (U)Ord ered By: Alber Dunn on 10-28-2024 Ketones Ql (U) 5 mg/dl High Negative [facility] Laboratory - Chemistry and C hemistry - challengeOrdered By: Alber Dunn on 10-28-2024 AST [Catalytic activity/Vol] 48 U/L High <38 [facility] Comment on above: Hemolysis present, R esults could be affected. Laboratory - Hematology and Cell countsOrdered By: Alber Dunn on 10-28-2024 Anisocytosis Ql (Bld) RARE [facility] Lactic acid measurementOrder ed By: Alber Dunn on 10-28-2024 Lactate [Moles/Vol] 4.0 mmol/L High 0.0-2.0 [facility] Comment on above: Critical Result(s) C alled [...] 10-28-2024 Lipase [Catalytic activity/Vol] 45 U/L 13-75 [facility] Comment on above: Please note:LIPASE r evised reference range effective 22. New Lipase methodology. Expected to produce lower values than the previous assay method. NEW Reference Range: 13 - 75 U/L Lymphocytes Auto (Unsp spec) [#/Vol]Ordered By: Alber Dunn on 10-28-2024 Lymphocytes (Bld) [#/Vol] 1.28 10*3/uL 0.83-4.51 [facility] Lymphocytes/100 WBC Auto (Un sp spec)Ordered By: Alber Dunn on 10-28-2024 Lymphocytes/100 WBC (Bld) 5.6 % Low 19-41 [facility] MCV (mean corpuscular volume ) determinationOrdered By: Alber Dunn on 10-28-2024 MCV (RBC) [Entitic vol] 91.2 fL 80-94 [facility] Macrocytes Ql (Bld)Ordered B y: Alber Dunn on 10-28-[address] [facility] Macrocytes detection RARE [facility] Macrocytes detectionOrdered By: Alber Dunn on 10-28-2024 Macrocytes Ql (Bld) RARE [facility] Manual differential comment Marco Antonio (Bld) [Interp]Ordered By: Alber Dunn on 10-28-2024 Differential Comment SEE COMMENT [facility] Comment on above: MONOCYTOSIS NOTED Mean corpuscular hemoglobin (MCH) determinationOrdered By: Alber Dunn on 10-28-2024 MCH (RBC) [Entitic mass] 31.1 pg 27.0-32.0 [facility] Mean corpuscular hemoglobin concentration (MCHC) determinationOrdered By: Alber Dunn on 10-28-2024 MCHC (RBC) [Mass/Vol] 34.0 g/dL 32-36 [facility] Mean platelet volume determi nationOrdered By: Alber Dunn on 10-28-2024 Platelet mean volume (Bld) [Entitic vol] 12.0 fL 6.2-12.0 [facility] Microscopic analysis of urin e for red blood cells (RBC)Ordered By: Alber Dunn on 10-28-2024 Urine RBC > 100 SEEN /hpf 0-5 [facility] Monocyte percentageOrdered B y: Alber Dunn on 10-28-2024 Monocytes/100 WBC (Bld) 8.4 % 0-10 [facility] Mucus LM Ql (Urine sed)Order ed By: Alber Dunn on 10-28-2024 Mucus Ql (Urine sed) 0 SEEN /hpf [facility] Neutrophil percentageOrdered By: Alber Dunn on 10-28-2024 Neutrophils/100 WBC (Bld) 83.0 % High 47-70 [facility] Nitrite Test strip Ql (U)Ord ered By: Alber Dunn on 10-28-2024 Nitrite Ql (U) Negative Negative [facility] Nucleated red blood cell per centageOrdered By: Alber Dunn on 10-28-2024 Nucleated RBC/100 WBC (Bld) [Ratio] 0 % 0-5 [facility] Osmolality (U) [Osmolality]O rdered By: Hill Wright on 10-28-2024 Osmolality ur 484 mOsm/KG >50 [facility] Osmolality urOrdered By: Hugo Wright on 10-28-2024 Osmolality (U) [Osmolality] 484 mOsm/KG >50 [facility] Ovalocytes LM Ql (Bld)Ordere d By: Alber Dunn on 10-28-[address] [facility] Pathologist review Marco Antonio (Unsp spec) [Interp]Ordered By: Alber Dunn on 10-28-2024 Differential Pathologist's Review [facility] Platelet countOrdered By: Hernesto Dunn on 10-28-2024 Platelets (Bld) [#/Vol] 142 10*3/uL Low 150-450 [facility] Platelets LM Ql (Bld)Ordered By: Alber Dunn on 10-28-2024 Platelet Estimate ADEQUATE ADEQ [facility] Potassium (Unsp spec) [Mass/ Vol]Ordered By: Alber Dunn on 10-28-2024 Potassium [Moles/Vol] 4.5 mmol/L 3.3-5.1 [facility] Comment on above: Hemolysis present, R esults could be affected. Protein Test strip Ql (U)Ord ered By: Alber Dunn on 10-28-2024 Protein Ql (U) 500 mg/dl High Negative [facility] RBC Auto (Bld) [#/Vol]Ordere d By: Alber Dunn on 10-28-2024 RBC (Bld) [#/Vol] 4.09 10*6/uL Low 4.6-6.2 [facility] RBC morphology finding Nom ( Bld)Ordered By: Alber Dunn on 10-28-2024 Red Blood Cell Morphology N CHROM NORMAL NORM C&C [facility] Serum creatinine measurement (mass/volume)Ordered By: Alber Dunn on 10-28-2024 Creatinine [Mass/Vol] 1.33 mg/dL High 0.70-1.20 [facility] Serum globulin measurementOr dered By: Alber Dunn on 10-28-2024 Globulin (S) [Mass/Vol] 3.4 g/dL 2.2-4.2 [facility] Serum glucose measurement (m ass/volume)Ordered By: Alber Dunn on 10-28-2024 Glucose [Mass/Vol] 338 mg/dL High 70-99 [facility] Serum or plasma alanine thomas otransferase (ALT) measurementOrdered By: Alber Dunn on 10-28-2024 ALT [Catalytic activity/Vol] 23 U/L <47 [facility] Serum or plasma albumin roosevelt urement (mass/volume)Ordered By: Alber Dunn on 10-28-2024 Albumin [Mass/Vol] 2.5 g/dL Low 3.5-5.0 [facility] Serum or plasma albumin/glob ulin mass ratioOrdered By: Alber Dunn on 10-28-2024 Albumin/Globulin [Mass ratio] 0.7 {ratio} Low 0.9-2.4 [facility] Serum or plasma alkaline kendrick sphatase measurementOrdered By: Alber Dunn on 10-28-2024 ALP [Catalytic activity/Vol] 274 U/L High 40-129 [facility] Serum or plasma calcium roosevelt urement (mass/volume)Ordered By: Alber Dunn on 10-28-2024 Calcium [Mass/Vol] 9.2 mg/dL 7.6-11.0 [facility] Serum or plasma urea nitroge n measurement (mass/volume)Ordered By: Alber Dunn on 10-28-2024 Urea nitrogen [Mass/Vol] 25 mg/dL High 4-19 [facility] Sodium levelOrdered By: Alber Dunn on 10-28-2024 Sodium [Moles/Vol] 128 mmol/L Low 133-145 [facility] Total proteinOrdered By: Viraj Dunn on 10-28-2024 Protein [Mass/Vol] 5.9 g/dL 5.9-8.4 [facility] Urine blood detectionOrdered By: Alber Dunn on 10-28-2024 Urine Occult Blood 250 /ul High Negative [facility] Urine clarityOrdered By: Viraj Dunn on 10-28-2024 Clarity (U) Cloudy Clear [facility] Urine color determinationOrd ered By: Alber Dunn on 10-28-2024 Color (U) Red Yellow [facility] Urine leukocyte esterase det ection by dipstickOrdered By: Alber Dunn on 10-28-2024 Leukocyte esterase Test strip Ql (U) 500 /ul High Negative [facility] Urine pHOrdered By: Alber grajeda on 10-28-2024 pH (U) 6.5 [pH] 5.0 - 8.0 [facility] Urine sediment bacteria coun t by microscopy (number/high power field)Ordered By: Alber Dunn on 10-28-2024 Bacteria LM.HPF (Urine sed) [#/Area] 1 /[HPF] None Seen [facility] Urine specific gravity measu rementOrdered By: Alber Dunn on 10-28-2024 Specific gravity (U) [Rel density] 1.015 1.002-1.030 [facility] Urobilinogen Ql (U)Ordered B y: Alber Dunn on 10-28-2024 Urine Urobilinogen Normal mg/dl Normal [facility] White blood cell (WBC) count Ordered By: Alber Dunn on 10-28-2024 WBC (Bld) [#/Vol] 22.9 10*3/uL High 4.4-11.0 [facility] White blood cell countOrdere d By: Alber Dunn on 10-28-2024 Urine WBC >100 SEEN /hpf 0-5 [facility] APTTon 10-04-2024 aPTT Coag (PPP) [Time] 40 s High [facility] Albuminon 10-04-2024 Albumin (Body fld) [Mass/Vol] <0.5 Normal Not established [facility] Comment on above: Order Comment: Venip uncture immediately after or during the administration of Metamizole may lead to falsely low results. Testing should be performed immediately prior to Metamizole dosing. Performed By: #### 2 524-7 #### GOMES ALYSSA ([id number]) [facility] ([facility]) [address] [place] [address] Bacteria identifiedon 2024 Bacteria identified Cx Nom (Body fld) Test: Sterile Fluid Culture/Smear Specimen Source: Pleural Specimen Type: Fluid Specimen Date: 10/04/20241713 Result Date: 10/08/2024824 Result Status: Final result Resulting Lab: [facility] [id number] [facility] [place] [address] CULTURE No growth aerobically and anaerobically STAIN (1+) Rare Polymorphonuclear leukocytes No organisms seen Normal [facility] Comment on above: Performed By: #### 2 524-7 #### GOMES ALYSSA ([id number]) [facility] ([facility]) [address] [place] [id number] Basic metabolic 2000 panelon 10-04-2024 Anion gap [Moles/Vol] 8 mmol/L Low 10 - 2 0 mmol/L [facility] Calcium [Mass/Vol] 8.1 mg/dL Low 8.6 - 10. 3 mg/dL [facility] Chloride [Moles/Vol] 109 mmol/L High 98 - 10 7 mmol/L [facility] CO2 [Moles/Vol] 24 mmol/L 21 - 32 mmol/L [facility] Creatinine [Mass/Vol] 0.73 mg/dL 0.50 - 1.30 mg/dL [facility] eGFR - PINF [facility] Comment on above: Calculations of patric mated GFR are performed using the 2020 CKD-EPI Study Refit equation without the race variable for the IDMS-Traceable creatinine methods. https://jasn.asnjournals.org/content//ASN.2020 843432 Glucose [Mass/Vol] 197 mg/dL High 74 - 99 mg/dL [facility] Potassium [Moles/Vol] 3.9 mmol/L 3.5 - 5.3 mmol/L [facility] Sodium [Moles/Vol] 137 mmol/L 136 - 145 mmol/L [facility] Urea nitrogen [Mass/Vol] 17 mg/dL 6 - 23 mg/dL [facility] Anion gap [Moles/Vol] 8 mmol/L Low 10-20 [facility] Comment on above: Performed By: #### 2 4321-2 #### MIREYA SHAH ([id number]) [facility] ([facility]) [address] [place] [address] Calcium [Mass/Vol] 8.1 mg/dL Low 8.6-10.3 [facility] Comment on above: Performed By: #### 2 4321-2 #### MIREYA SHAH ([id number]) [facility] ([facility]) [facility] [place] [address] Chloride [Moles/Vol] 109 mmol/L High 98-107 [facility] Comment on above: Performed By: #### 2 4321-2 #### MIREYA SHAH ([id number]) [facility] ([facility]) [address] [place] [address] CO2 [Moles/Vol] 24 mmol/L Normal 21-32 [facility] Comment on above: Performed By: #### 2 4321-2 #### MIREYA SHAH ([id number]) [facility] ([facility]) [address] [place] [address] Creatinine [Mass/Vol] 0.73 mg/dL Normal 0.50-1.30 [facility] Comment on above: Performed By: #### 2 4321-2 #### MIREYA SHAH ([id number]) [facility] ([facility]) [facility] [place] [address] GFR/1.73 sq M.predicted MDRD (S/P/Bld) [Vol rate/Area] mL/min/{1.73_m2} Normal >60 [facility] Comment on above: Result Comment: Calc ulations of estimated GFR are performed using the 2020 CKD-EPI Study Refit equation without the race variable for the IDMS-Traceable creatinine methods. https://jasn.asnjournals.org/content//ASN.2020 350137 Performed By: #### 2 4321-2 #### MIREYA SHAH ([id number]) [facility] ([facility]) [address] [place] [address] 50911 Glucose [Mass/Vol] 197 mg/dL High 74-99 [facility] Comment on above: Performed By: #### 2 4321-2 #### MIREYA SHAH ([id number]) [facility] ([facility]) [address] [place] [address] 74104 Potassium [Moles/Vol] 3.9 mmol/L Normal 3.5-5.3 [facility] Comment on above: Performed By: #### 2 4321-2 #### MIREYA SHAH ([id number]) [facility] ([facility]) [address] [place] [address] 12387 Sodium [Moles/Vol] 137 mmol/L Normal 136-145 [facility] Comment on above: Performed By: #### 2 4321-2 #### MIREYA SHAH ([id number]) [facility] ([facility]) [address] [place] [address] 82590 Urea nitrogen [Mass/Vol] 17 mg/dL Normal 6-23 [facility] Comment on above: Performed By: #### 2 4321-2 #### MIREYA SHAH ([id number]) [facility] ([facility]) [address] [place] [address] 10005 CBC W Auto Differential pane l (Bld)on 10-04-2024 Basophils (Bld) [#/Vol] 0.02 10*3/uL [facility] Basophils/100 WBC (Bld) 0.4 % 0.0 - 2.0 % [facility] Eosinophils (Bld) [#/Vol] 0.15 10*3/uL [facility] Eosinophils/100 WBC (Bld) 2.7 % 0.0 - 6.0 % [facility] Erythrocyte distribution width (RBC) [Ratio] 22.1 % High 11.5 - 14.5 % [facility] Hematocrit (Bld) [Volume fraction] 29.8 % Low 41.0 - 52.0 % [facility] Hemoglobin (Bld) [Mass/Vol] 9.3 g/dL Low 13.5 - 17.5 g/dL [facility] Immature granulocytes (Bld) [#/Vol] 0.01 10*3/uL [facility] Immature granulocytes/100 WBC (Bld) 0.2 % 0.0 - 0.9 % [facility] Comment on above: Immature Granulocyte Count (IG) includes promyelocytes, myelocytes and metamyelocytes but does not include bands. Percent differential counts (%) should be interpreted in the context of the absolute cell counts (cells/UL). Interpretation and review of laboratory results Abnormal [facility] Lymphocytes (Bld) [#/Vol] 0.64 10*3/uL Low [facility] Lymphocytes/100 WBC (Bld) 11.5 % 13.0 - 44.0 % [facility] MCH (RBC) [Entitic mass] 30 pg 26.0 - 34.0 pg [facility] MCHC (RBC) [Mass/Vol] 31.2 g/dL Low 32.0 - 36.0 g/dL [facility] MCV (RBC) [Entitic vol] 96 fL 80 - 100 fL [facility] Monocytes (Bld) [#/Vol] 0.46 10*3/uL [facility] Monocytes/100 WBC (Bld) 8.3 % 2.0 - 10.0 % [facility] Neutrophils (Bld) [#/Vol] 4.28 10*3/uL [facility] Comment on above: Percent differential counts (%) should be interpreted in the context of the absolute cell counts (cells/uL). Neutrophils/100 WBC (Bld) 76.9 % 40.0 - 80.0 % [facility] Nucleated RBC/100 WBC (Bld) [Ratio] 0 % [facility] Platelets (Bld) [#/Vol] 65 10*3/uL Low [facility] RBC (Bld) [#/Vol] 3.1 10*6/uL Low [facility] WBC (Bld) [#/Vol] 5.6 10*3/uL [facility] Basophils (Bld) [#/Vol] 0.02 x10*3/uL Normal 0.00-0.10 [facility] Comment on above: Performed By: #### 5 7021-8 #### MIREYA SHAH ([id number]) [facility] ([facility]) [address] [place] [address] 19111 Basophils/100 WBC (Bld) 0.4 % Normal 0.0-2.0 [facility] Comment on above: Performed By: #### 5 7021-8 #### MIREYA SHAH ([id number]) [facility] ([facility]) [address] [place] [address] 12347 Eosinophils (Bld) [#/Vol] 0.15 x10*3/uL Normal 0.00-0.70 [facility] Comment on above: Performed By: #### 5 7021-8 #### MIREYA SHAH ([id number]) [facility] ([facility]) [address] [place] [address] 54066 Eosinophils/100 WBC (Bld) 2.7 % Normal 0.0-6.0 [facility] Comment on above: Performed By: #### 5 7021-8 #### MIREYA SHAH ([id number]) [facility] ([facility]) [address] [place] [address] 19285 Erythrocyte distribution width (RBC) [Ratio] 22.1 % High 11.5-14.5 [facility] Comment on above: Performed By: #### 5 7021-8 #### MIREYA SHAH ([id number]) [facility] ([facility]) [address] [place] [address] 70351 Hematocrit (Bld) [Volume fraction] 29.8 % Low 41.0-52.0 [facility] Comment on above: Performed By: #### 5 7021-8 #### MIREYA SHAH ([id number]) [facility] ([facility]) [address] [place] [address] 45339 Hemoglobin (Bld) [Mass/Vol] 9.3 g/dL Low 13.5-17.5 [facility] Comment on above: Performed By: #### 5 7021-8 #### MIREYA SHAH ([id number]) [facility] ([facility]) [address] [place] [address] 54417 Immature granulocytes (Bld) [#/Vol] 0.01 x10*3/uL Normal 0.00-0.70 [facility] Comment on above: Performed By: #### 5 7021-8 #### MIREYA SHAH ([id number]) [facility] ([facility]) [address] [place], [place] [address] Immature granulocytes/100 WBC (Bld) 0.2 % Normal 0.0-0.9 [facility] Comment on above: Result Comment: Danielle ture Granulocyte Count (IG) includes promyelocytes, myelocytes and metamyelocytes but does not include bands. Percent differential counts (%) should be interpreted in the context of the absolute cell counts (cells/UL). Performed By: #### 5 7021-8 #### MIREYA SHAH ([id number]) [facility] ([facility]) [address] [place] [address] Lymphocytes (Bld) [#/Vol] 0.64 x10*3/uL Low 1.20-4.80 [facility] Comment on above: Performed By: #### 5 7021-8 #### MIREYA SHAH ([id number]) [facility] ([facility]) [address] [place] [address] 80875 Lymphocytes/100 WBC (Bld) 11.5 % Normal 13.0-44.0 [facility] Comment on above: Performed By: #### 5 7021-8 #### MIREYA SHAH ([id number]) [facility] ([facility]) [address] [place] [address] 37777 MCH (RBC) [Entitic mass] 30.0 pg Normal 26.0-34.0 [facility] Comment on above: Performed By: #### 5 7021-8 #### MIREYA SHAH ([id number]) [facility] ([facility]) [address] [place] [address] MCHC (RBC) [Mass/Vol] 31.2 g/dL Low 32.0-36.0 [facility] Comment on above: Performed By: #### 5 7021-8 #### MIREYA SHAH ([id number]) [facility] ([facility]) [address] [place] [address] 10788 MCV (RBC) [Entitic vol] 96 fL Normal 80-100 U [facility] Comment on above: Performed By: #### 5 7021-8 #### MIREYA SHAH ([id number]) [facility] ([facility]) [address] [place] [address] 73843 Monocytes (Bld) [#/Vol] 0.46 x10*3/uL Normal 0.10-1.00 [facility] Comment on above: Performed By: #### 5 7021-8 #### MIREYA SHAH ([id number]) [facility] ([facility]) [address] [place] [address] 37390 Monocytes/100 WBC (Bld) 8.3 % Normal 2.0-10.0 [facility] Comment on above: Performed By: #### 5 7021-8 #### MIREYA SHAH ([id number]) [facility] ([facility]) [address] [place] [address] 85113 Neutrophils (Bld) [#/Vol] 4.28 x10*3/uL Normal 1.20-7.70 [facility] Comment on above: Result Comment: Perc ent differential counts (%) should be interpreted in the context of the absolute cell counts (cells/uL). Performed By: #### 5 7021-8 #### MIREYA SHAH ([id number]) [facility] ([facility]) [address] [place] [address] 65493 Neutrophils/100 WBC (Bld) 76.9 % Normal 40.0-80.0 [facility] Comment on above: Performed By: #### 5 7021-8 #### MIREYA SHAH ([id number]) [facility] ([facility]) [address] [place] [address] 84290 Nucleated RBC/100 WBC (Bld) [Ratio] 0.0 /100 WBCs Normal 0.0-0.0 [facility] Comment on above: Performed By: #### 5 7021-8 #### MIREYA SHAH ([id number]) [facility] ([facility]) [facility] [place] [address] Platelets (Bld) [#/Vol] 65 x10*3/uL Low 150-450 [facility] Comment on above: Performed By: #### 5 7021-8 #### MIREYA SHAH ([id number]) [facility] ([facility]) [facility] [place] [address] RBC (Bld) [#/Vol] 3.10 x10*6/uL Low 4.50-5.90 [facility] Comment on above: Performed By: #### 5 7021-8 #### MIREYA SHAH ([id number]) [facility] ([facility]) [address] [place] [address] 05933 WBC (Bld) [#/Vol] 5.6 x10*3/uL Normal 4.4-11.3 [facility] Comment on above: Performed By: #### 5 7021-8 #### MIREYA SHAH ([id number]) [facility] ([facility]) [address] [place] [address] ABDOMEN PELVIS W IV CONTR [place] 10-04-2024 CT ABDOMEN PELVIS W IV CONTRAST Interpreted By: Yohana Huang, STUDY: CT ABDOMEN PELVIS W IV CONTRAST; 10/04/2024 2:16 pm INDICATION: Signs/Symptoms:generaliz ed abdominal pain, hx of cirrhosis, recent paracentesis. COMPARISON: None. ACCESSION NUMBER(S): [id number] ORDERING CLINICIAN: SRIRAM OLEARY TECHNIQUE: CT of [...] Yohana Huang 10/04/2024 2:28 PM Dictation workstation: [id number] [facility] CT Abdomen and Pelvis W cont rast Jamari 10-04-2024 Coronary artery calcifications. Anasarca. Ascites. Small irregular liver consistent with cirrhosis. Extensive collateral vessels. Enlarged spleen. Ventral and inguinal hernias containing ascitic fluid. MACRO: none Signed by: Yohana Huang 10/04/2024 2:28 PM Dictation workstation: [id number] Interpreted By: Yohana Chen, STUDY: CT ABDOMEN PELVIS W IV CONTRAST; 10/04/2024 2:16 pm INDICATION: Signs/Symptoms:generaliz ed abdominal pain, hx of cirrhosis, recent paracentesis. COMPARISON: None. ACCESSION NUMBER(S): [id number] ORDERING CLINICIAN: SRIRAM OLEARY TECHNIQUE: CT of [...] cirrhosis, recent paracentesis. COMPARISON: None. ACCESSION NUMBER(S): [id number] ORDERING CLINICIAN: SRIRAM OLEARY TECHNIQUE: CT of [...] Yohana Huang 10/04/2024 2:28 PM Dictation workstation: [id number] [facility] Work Phone: Radiology Study observation (narrative) [facility] Work Phone: CT Abdomen and Pelvis W cont rast IVOrdered By: Yohana Huang on 10-04-2024 [facility] Work Phone: Cell count panel (Body fld)O rdered By: Fortino Mcgee on 10-04-2024 Clarity (Body fld) Hazy Abnormal Clear [facility] Color (Body fld) Straw Colorless, Straw, Yellow [facility] Interpretation and review of laboratory results Abnormal [facility] RBC Auto (Body fld) [#/Vol] 2000 /uL see comment [facility] WBC (Body fld) [#/Vol] 0.058 10*3/uL See Commen t [facility] Body Fluid cell coun t reference ranges have not been established by [facility]. Reference ranges provided are based on published references. [facility] Cell count panel (Body fld)o n 10-04-2024 Clarity (Body fld) Hazy Abnormal Clear [facility] Comment on above: Order Comment: Body Fluid cell count reference ranges have not been established by [facility]. Reference ranges provided are based on published references. Performed By: #### 3 4556-1 #### MIREYA SHAH ([id number]) [facility] ([facility]) [address] [place] [address] Color (Body fld) Straw Normal Colorless, Straw, Yellow [facility] Comment on above: Order Comment: Body Fluid cell count reference ranges have not been established by [facility]. Reference ranges provided are based on published references. Performed By: #### 3 4556-1 #### MIREYA SHAH ([id number]) [facility] ([facility]) [address] [place] [address] RBC Auto (Body fld) [#/Vol] 2000 /uL Normal see comment [facility] Comment on above: Order Comment: Body Fluid cell count reference ranges have not been established by [facility]. Reference ranges provided are based on published references. Performed By: #### 3 4556-1 #### MIREYA SHAH ([id number]) [facility] ([facility]) [address] [place] [address] WBC (Body fld) [#/Vol] 0.058 10*3/uL Normal See Commen t [facility] Comment on above: Order Comment: Body Fluid cell count reference ranges have not been established by [facility]. Reference ranges provided are based on published references. Performed By: #### 3 4556-1 #### MIREYA SHAH ([id number]) [facility] ([facility]) [address] [place] [address] Coagulation surface inducedo n 10-04-2024 aPTT Coag (PPP) [Time] 40 s High 26-36 Un [facility] Comment on above: Order Comment: The A PTT is no longer used for monitoring Unfractionated Heparin Therapy. For monitoring Heparin Therapy, use the Heparin Assay. Performed By: #### 1 4979-9 #### MIREYA SHAH ([id number]) [facility] ([facility]) [address] [place] [address] Coagulation tissue factor in ducedon 10-04-2024 PT Coag (PPP) [Time] 23.6 s High 9.8-12.4 [facility] Comment on above: Performed By: #### 5 902-2 #### MIREYA SHAH ([id number]) [facility] ([facility]) [address] [place] [address] Differential panel (Body fld )on 10-04-2024 Basophils/100 WBC (Body fld) 0 % not established [facility] Blasts/100 WBC Manual cnt (Body fld) 0 % not established [facility] Cells Counted Total (Body fld) [#] 100 [facility] Eosinophils/100 WBC Manual cnt (Body fld) 0 % see comment [facility] Immature Granulocytes %, Manual, Fluid 0 % not established [facility] Interpretation and review of laboratory results Abnormal [facility] Lymphocytes/100 WBC Manual cnt (Body fld) 19 % see comment [facility] Monocytes+Macrophages/1 00 WBC Manual cnt (Body fld) 17 % see comment [facility] Neutrophils/100 WBC (Body fld) 40 % see comment [facility] Other cells/100 WBC Manual cnt (Body fld) 24 % High not established [facility] Comment on above: Mesothelial cells no tianna by tech Plasma cells/100 WBC Manual cnt (Body fld) 0 % not established [facility] Body Fluid cell differential reference ranges have not been established by [facility]. Reference ranges provided are based on published references. [facility] Basophils/100 WBC (Body fld) 0 % Normal not established [facility] Comment on above: Order Comment: Body Fluid cell differential reference ranges have not been established by [facility]. Reference ranges provided are based on published references. Performed By: #### 2 9580-8 #### MIREYA SHAH ([id number]) [facility] ([facility]) [address] [place] [address] Blasts/100 WBC Manual cnt (Body fld) 0 % Normal not established [facility] Comment on above: Order Comment: Body Fluid cell differential reference ranges have not been established by [facility]. Reference ranges provided are based on published references. Performed By: #### 2 9580-8 #### MIREYA SHAH ([id number]) [facility] ([facility]) [address] [place] [address] Cells Counted Total (Body fld) [#] 100 Normal [facility] Comment on above: Order Comment: Body Fluid cell differential reference ranges have not been established by [facility]. Reference ranges provided are based on published references. Performed By: #### 2 9580-8 #### MIREYA SHAH ([id number]) [facility] ([facility]) [address] [place] [address] Eosinophils/100 WBC Manual cnt (Body fld) 0 % Normal see comment [facility] Comment on above: Order Comment: Body Fluid cell differential reference ranges have not been established by [facility]. Reference ranges provided are based on published references. Performed By: #### 2 9580-8 #### MIREYA SHAH ([id number]) [facility] ([facility]) [address] [place] [address] 93556 IMMATURE GRANULOCYTES IN FLUID 0 % Normal not established [facility] Comment on above: Order Comment: Body Fluid cell differential reference ranges have not been established by [facility]. Reference ranges provided are based on published references. Performed By: #### 2 9580-8 #### MIREYA SHAH ([id number]) [facility] ([facility]) [address] [place] [address] Lymphocytes/100 WBC Manual cnt (Body fld) 19 % Normal see comment [facility] Comment on above: Order Comment: Body Fluid cell differential reference ranges have not been established by [facility]. Reference ranges provided are based on published references. Performed By: #### 2 9580-8 #### MIREYA SHAH ([id number]) [facility] ([facility]) [address] [place] [address] Monocytes+Macrophages/1 00 WBC Manual cnt (Body fld) 17 % Normal see comment [facility] Comment on above: Order Comment: Body Fluid cell differential reference ranges have not been established by [facility]. Reference ranges provided are based on published references. Performed By: #### 2 9580-8 #### MIREYA SHAH ([id number]) [facility] ([facility]) [address] [place] [address] 96100 Neutrophils/100 WBC (Body fld) 40 % Normal see comment [facility] Comment on above: Order Comment: Body Fluid cell differential reference ranges have not been established by [facility]. Reference ranges provided are based on published references. Performed By: #### 2 9580-8 #### MIREYA SHAH ([id number]) [facility] ([facility]) [address] [place] [address] 49826 Other cells/100 WBC Manual cnt (Body fld) 24 % High not established [facility] Comment on above: Order Comment: Body Fluid cell differential reference ranges have not been established by [facility]. Reference ranges provided are based on published references. Result Comment: Meso thelial cells noted by tech Performed By: #### 2 9580-8 #### MIREYA SHAH ([id number]) [facility] ([facility]) [address] [place] [address] 46302 Plasma cells/100 WBC Manual cnt (Body fld) 0 % Normal not established [facility] Comment on above: Order Comment: Body Fluid cell differential reference ranges have not been established by [facility]. Reference ranges provided are based on published references. Performed By: #### 2 9580-8 #### MIREYA SHAH ([id number]) [facility] ([facility]) [address] [place] [address] 50296 Glucoseon 10-04-2024 Glucose (Body fld) [Mass/Vol] 200 mg/dL Normal Not established [facility] Comment on above: Order Comment: Venip uncture immediately after or during the administration of Metamizole may lead to falsely low results. Testing should be performed immediately prior to Metamizole dosing. Performed By: #### 2 524-7 #### MIREYA SHAH ([id number]) [facility] ([facility]) [address] [place] [address] 25280 Hepatic function 2000 panelo n 10-04-2024 Albumin BCP dye [Mass/Vol] 2.4 g/dL Low 3.4 - 5.0 g/dL [facility] ALP [Catalytic activity/Vol] 212 U/L High 33 - 120 U/L [facility] ALT With P-5'-P [Catalytic activity/Vol] 46 U/L 10 - 52 U/L [facility] Comment on above: Patients treated wit h Sulfasalazine may generate falsely decreased results for ALT. AST With P-5'-P [Catalytic activity/Vol] 49 U/L High 9 - 39 U/L [facility] Bilirubin [Mass/Vol] 1.8 mg/dL High 0.0 - 1 .2 mg/dL [facility] Bilirubin.direct [Mass/Vol] 0.7 mg/dL High 0.0 - 0.3 mg/dL [facility] Protein [Mass/Vol] 5.7 g/dL Low 6.4 - 8.2 g/dL [facility] Albumin BCP dye [Mass/Vol] 2.4 g/dL Low 3.4-5.0 [facility] Comment on above: Performed By: #### 2 4325-3 #### MIREYA SHAH ([id number]) [facility] ([facility]) [address] [place] [address] 84118 ALP [Catalytic activity/Vol] 212 U/L High 33-120 [facility] Comment on above: Performed By: #### 2 4325-3 #### MIREYA SHAH ([id number]) [facility] ([facility]) [address] [place] [address] 79293 ALT With P-5'-P [Catalytic activity/Vol] 46 U/L Normal 10-52 [facility] Comment on above: Result Comment: Argenis ents treated with Sulfasalazine may generate falsely decreased results for ALT. Performed By: #### 2 4325-3 #### MIREYA SHAH ([id number]) [facility] ([facility]) [address] [place] [address] 46773 AST With P-5'-P [Catalytic activity/Vol] 49 U/L High 9-39 [facility] Comment on above: Performed By: #### 2 4325-3 #### MIREYA SHAH ([id number]) [facility] ([facility]) [address] [place] [address] 09846 Bilirubin [Mass/Vol] 1.8 mg/dL High 0.0-1.2 [facility] Comment on above: Performed By: #### 2 4325-3 #### MIREYA SHAH ([id number]) [facility] ([facility]) [address] [place] [address] 09237 Bilirubin.direct [Mass/Vol] 0.7 mg/dL High 0.0-0.3 [facility] Comment on above: Performed By: #### 2 4325-3 #### MIREYA SHAH ([id number]) [facility] ([facility]) [address] [place] [address] 85860 Protein [Mass/Vol] 5.7 g/dL Low 6.4-8.2 [facility] Comment on above: Performed By: #### 2 4325-3 #### MIREYA SHAH ([id number]) [facility] ([facility]) [address] [place] [address] 22739 Lactateon 10-04-2024 Lactate [Moles/Vol] 2 mmol/L 0.4 - 2. 0 mmol/L [facility] Lactate [Moles/Vol] 2.0 mmol/L Normal 0.4-2.0 [facility] Comment on above: Order Comment: Venip uncture immediately after or during the administration of Metamizole may lead to falsely low results. Testing should be performed immediately prior to Metamizole dosing. Performed By: #### 2 524-7 #### MIREYA SHAH ([id number]) [facility] ([facility]) [address] [place] [address] 79285 Lactate [Moles/Vol]on 2024 Interpretation and review of laboratory results Normal [facility] Venipuncture immedia tely after or during the administration of Metamizole may lead to falsely low results. Testing should be performed immediately prior to Metamizole dosing. [facility] Lactate dehydrogenaseon 03-0 LDH Lactate to pyruvate reaction (Body fld) [Catalytic activity/Vol] <25 Normal Not established. [facility] Comment on above: Order Comment: Venip uncture immediately after or during the administration of Metamizole may lead to falsely low results. Testing should be performed immediately prior to Metamizole dosing. Performed By: #### 2 524-7 #### GOMES ALYSSA ([id number]) [facility] ([facility]) [address] [place] [address] Lipaseon 10-04-2024 Lipase [Catalytic activity/Vol] 56 U/L 9 - 82 U/L [facility] Lipase [Catalytic activity/V ol]on 10-04-2024 Interpretation and review of laboratory results Normal [facility] Venipuncture immedia tely after or during the administration of Metamizole may lead to falsely low results. Testing should be performed immediately prior to Metamizole dosing. [facility] No Panel Informationon 10-04 Interpretation and review of laboratory results Abnormal [facility] Interpretation and review of laboratory results Abnormal [facility] Non-kiln worker cytology studyon Non-gynecological cytology method study Pathology report.total SEE COMMENT Non-gynecologic Cytology Case: [id number] Authorizing Provider: Joey Huang DO Collected: 10/04/2024 1714 Ordering Location: [facility] Received: 10/05/2024 [address] [place] Pathologist: Jarvis Guzman MD Specimen: ASCITIC FLUID Path report.final diagnosis SEE COMMENT A. ASCITIC FLUID: - NO MALIGNANT CELLS IDENTIFIED. Note: This case has been evaluated using a concentrated (ThinPrep) preparation. Laboratory comment SEE COMMENT Slide(s) initially screened by ABEL Castro at [facility] [address] [place] [id number] By the signature on this report, the [...] Block) A1-1 Pap Stain NGYN ThinPrep Normal [facility] PT Coag (PPP) [Time]on 10-04 INR Coag (PPP) [Relative time] 2.1 {INR} High 0.9 - 1.1 [facility] INR Coag (PPP) [Relative time] 2.1 High 0.9-1.1 [facility] Comment on above: Performed By: #### 5 902-2 #### MIREYA SHAH ([id number]) [facility] ([facility]) [address] [place] [address] Paracentesison 10-04-2024 Joey Huang DO 10/04/2024 5:18 PM Paracentesis Date/Time: 10/04/2024 5:17 PM Performed by: Joey Huang DO Authorized by: Joey Huang DO Consent: Consent obtained: Written Consent given by: Patient Risks, benefits, and alternatives were discussed: yes Risks discussed: Bleeding, bowel perforation and infection Alternatives discussed: No treatment [place] protocol: Procedure explained and questions answered to [...] Adhesive bandage Post-procedure details: Procedure completion: Tolerated [facility] Work Phone: [facility] Work Phone: Proteinon 10-04-2024 Protein (Body fld) [Mass/Vol] g/dL Normal Not established [facility] Comment on above: Order Comment: Venip uncture immediately after or during the administration of Metamizole may lead to falsely low results. Testing should be performed immediately prior to Metamizole dosing. Performed By: #### 2 524-7 #### MIREYA SHAH ([id number]) [facility] ([facility]) [facility] [place] [address] Protime-INRon 10-04-2024 PT Coag (PPP) [Time] 23.6 s High [facility] Triacylglycerol lipaseon Lipase [Catalytic activity/Vol] 56 U/L Normal 9-82 [facility] Comment on above: Order Comment: Venip uncture immediately after or during the administration of Metamizole may lead to falsely low results. Testing should be performed immediately prior to Metamizole dosing. Performed By: #### 3 040-3 #### GOMES ALYSSA ([id number]) [facility] ([facility]) [address] [place] [address] aPTT Coag (PPP) [Time]on The APTT is no longe r used for monitoring Unfractionated Heparin Therapy. For monitoring Heparin Therapy, use the Heparin Assay. [facility] pHon 10-04-2024 pH (Body fld) 7.82 Normal See Below [facility] Comment on above: Order Comment: Venip uncture immediately after or during the administration of Metamizole may lead to falsely low results. Testing should be performed immediately prior to Metamizole dosing. Performed By: #### 2 524-7 #### MIREYA SHAH ([id number]) [facility] ([facility]) [address] [place] [address] Gl[facility] deOrdered By: Boone Izquierdo on 09-14-2024 Bedside Glucose (Misc Panel) 134 mg/dL High 74-106 [facility] Comment on above: MANAGEMENT OF PATIEN T CARE PER NURSING PROTOCOL Glucose [Mass/Vol] 134 mg/dL High 74-106 [facility] Glucose measurement at bedside 134 mg/dL High 74-106 [facility] Blood urea nitrogen (BUN)/cr eatinine ratioOrdered By: Jae Ash on 09-12-2024 Urea nitrogen/Creatinine [Mass ratio] 7.6 mg/mg Low 10-20 [facility] Blood urea nitrogen (BUN)/creatinine ratio 7.6 RATIO Low 10-20 [facility] Calcium [Mass/Vol]Ordered By : Jae Ash on 09-12-2024 Serum or plasma calcium measurement (mass/volume) 8.1 mg/dL Low 8.5-10.1 [facility] Carbon dioxide measurementOr dered By: Jae Ash on 09-12-2024 CO2 [Moles/Vol] 20.0 mmol/L Low 21.0-32.0 [facility] Carbon dioxide measurement 20.0 mmol/L Low 21.0-32.0 [facility] Chloride measurementOrdered By: Jae Ash on 09-12-2024 Chloride [Moles/Vol] 109 mmol/L High 98-107 [facility] Chloride measurement 109 mmol/L High 98-107 [facility] Creatinine [Mass/Vol]Ordered By: Jae Ash on 09-12-2024 Serum or plasma creatinine measurement (mass/volume) 0.92 mg/dL 0.70-1.30 [facility] Erythrocyte distribution wid th (RBC) [Ratio]Ordered By: Jae Ash on 09-12-2024 Erythrocyte distribution width ratio 19.7 % High 11.6-14.6 [facility] Erythrocyte distribution width standard deviation 63.5 fl High 35.1-43.9 [facility] Erythrocyte distribution wid th ratioOrdered By: Jae Ash on 09-12-2024 Erythrocyte distribution width (RBC) [Ratio] 19.7 % High 11.6-14.6 [facility] Erythrocyte distribution wid th standard deviationOrdered By: Jae Ash on 09-12-2024 Erythrocyte distribution width (RBC) [Entitic vol] 63.5 fL High 35.1-43.9 [facility] Erythrocyte distribution width (RBC) [Ratio] 63.5 fl High 35.1-43.9 [facility] Estimated glomerular filtrat ion rate (GFR) AmericanOrdered By: Jae Ash on 09-12-2024 Estimated GFR (MDRD) Amer 108 mL/min >60 [facility] Comment on above: GFR Calc Estimated glomerular filtration rate (GFR) 108 mL/min >60 [facility] Estimation of creatinine carol[place] aranceOrdered By: Jae Ash on 09-12-2024 Estimated Creatinine Clearance Calc 71.80 ml/min [facility] Estimation of creatinine clearance 71.80 ml/min [facility] Glomerular filtration rate ( GFR) estimationOrdered By: Jae Ash on 09-12-2024 Estimated GFR (MDRD) Non-Af Amer 89 mL/min >60 [facility] Comment on above: Non- GFR Calc GFR/1.73 sq M.predicted among non-blacks MDRD (S/P/Bld) [Vol rate/Area] 89 mL/min/{1.73_m2} >60 [facility] Glomerular filtration rate (GFR) estimation 89 mL/min >60 [facility] Glucose measurementOrdered B y: Jae Ash on 09-12-2024 Glucose [Mass/Vol] 149 mg/dL [facility] 74-106 [facility] Comment on above: Fasting Glucose resu lt greater than or equal to 126 mg/dL suggests DIABETES MELLITUS per A.D.A. criteria. Glucose measurement 149 mg/dL High 74-106 [facility] Hematocrit Auto (Bld) [Volum e fraction]Ordered By: Jae Ash on 09-12-2024 Hematocrit (Bld) [Volume fraction] 25.8 % Low 40-54 [facility] Automated blood hematocrit (percentage) 25.8 % Low 40-54 [facility] Hemoglobin measurementOrdere d By: Jae Ash on 09-12-2024 Hemoglobin (Bld) [Mass/Vol] 8.1 g/dL Low 13.0-16.5 [facility] Hemoglobin measurement 8.1 g/dL Low 13.0-16.[address] [facility] MCV (RBC) [Entitic vol]Order ed By: Jae Ash on 09-12-2024 MCV (mean corpuscular volume) determination 90.5 fL 80-94 [facility] MCV (mean corpuscular volume ) determinationOrdered By: Jae Ash on 09-12-2024 MCV (RBC) [Entitic vol] 90.5 fL 80-94 [facility] Mean corpuscular hemoglobin (MCH) determinationOrdered By: Jae Ash on 09-12-2024 MCH (RBC) [Entitic mass] 28.4 pg 27.0-32.0 [facility] Mean corpuscular hemoglobin (MCH) determination 28.4 pg 27.0-32.0 [facility] Mean corpuscular hemoglobin concentration (MCHC) determinationOrdered By: Jae Ash on 09-12-2024 MCHC (RBC) [Mass/Vol] 31.4 g/dL Low 32-36 [facility] Comment on above: Delta: 33.1 on 09/10 Mean corpuscular hemoglobin concentration (MCHC) determination 31.4 g/dL Low 32-36 [facility] Mean platelet volume determi nationOrdered By: Jae Ash on 09-12-2024 Platelet mean volume (Bld) [Entitic vol] 11.9 fL 6.2-12.0 [facility] Mean platelet volume determination 11.9 fl 6.2-12.0 [facility] Platelet countOrdered By: Sky Ash on 09-12-2024 Platelets (Bld) [#/Vol] 115 10*3/uL Low 150-450 [facility] Platelet count 115 K/mm3 Low 150-450 [facility] Potassium measurementOrdered By: Jae Ash on 09-12-2024 Potassium [Moles/Vol] 3.4 mmol/L Low 3.5-5.1 [facility] Potassium measurement 3.4 mmol/L Low 3.5-5.1 [facility] RBC Auto (Bld) [#/Vol]Ordere d By: Jae Ash on 09-12-2024 RBC (Bld) [#/Vol] 2.85 10*6/uL Low 4.6-6.2 [facility] Automated blood erythrocyte count 2.85 M/mm3 Low 4.6-6.2 [facility] Serum anion gap measurementO rdered By: Jae Ash on 09-12-2024 Anion gap [Moles/Vol] 7 mmol/L 5-15 [facility] Serum anion gap measurement 7 5-15 [facility] Serum or plasma calcium roosevelt urement (mass/volume)Ordered By: Jae Ash on 09-12-2024 Calcium [Mass/Vol] 8.1 mg/dL Low 8.5-10.1 [facility] Serum or plasma creatinine m easurement (mass/volume)Ordered By: Jae Ash on 09-12-2024 Creatinine [Mass/Vol] 0.92 mg/dL 0.70-1.30 [facility] Comment on above: The validity of the calculated GFR & GFRAA in patients over 70 years has not been determined. Clinical correlation is essential. Serum or plasma urea nitroge n measurement (mass/volume)Ordered By: Jae Ash on 09-12-2024 Urea nitrogen [Mass/Vol] 7 mg/dL 02-18 [facility] Sodium levelOrdered By: Pasha Ash on 09-12-2024 Sodium [Moles/Vol] 136 mmol/L 136-145 [facility] Sodium level 136 mmol/L 136-145 [facility] Urea nitrogen [Mass/Vol]Orde red By: Jae Ash on 09-12-2024 Serum or plasma urea nitrogen measurement (mass/volume) 7 mg/dL 02-18 [facility] White blood cell (WBC) count Ordered By: Jae Ash on 09-12-2024 WBC (Bld) [#/Vol] 7.4 10*3/uL 4.4-11.0 [facility] White blood cell (WBC) count 7.4 K/mm3 4.4-11.0 [facility] Serum or plasma trough vanco mycin levelOrdered By: Thai Thurston on 09-10-2024 Vancomycin trough [Mass/Vol] 15.7 ug/mL High 5.0-15.0 [facility] Vancomycin trough [Mass/Vol] Ordered By: Thai Thurston on 09-10-2024 Vancomycin Level Trough 15.7 ug/mL High 5.0-15.0 [facility] Comment on above: VANCOMYCIN STANDARED DRUG THERAPY TROUGH LEVEL: 5.0 - 15.0 mg/L VANCOMYCIN HIGH INTENSITY THERAPY TROUGH LEVEL: 15.0 - 20.0 mg/L High Intensity therapy recommended for serious lifethreatening infections include:- Ivonliqhxa-Mnfryyucuyly-Llrpinkbl (Ventilator/Healtcare Associated)-Sepsis PLEASE CONTACT PHARMACY SERVICES (#[id number]) FOR INTERPRETATIONOF RESULTS. Serum or plasma trough vancomycin level 15.7 ug/mL High 5.0-15.0 [facility] Serum or plasma vancomycin l evel (mass/volume)Ordered By: Maria Guadalupe Shore on 09-08-2024 Vancomycin [Mass/Vol] 16.5 ug/mL High 0.0-15.0 [facility] Vancomycin [Mass/Vol]Ordered By: Maria Guadalupe Shore on 09-08-2024 Random Vancomycin Level 16.5 ug/mL High 0.0-15.0 [facility] Comment on above: VANCOMYCIN STANDARD DRUG THERAPY: CRITICAL VALUE IS > 15.0 mg/L VANCOMYCIN HIGH INTENSITY THERAPY: CRITICAL VALUE IS > 20.0 mg/L PLEASE CONTACT PHARMACY SERVICES (#[id number]) FOR INTERPRETATIONOF RESULTS. THIS RESULT DOES NOT REPRESENT A PEAK OR TROUGHLEVEL FOR THIS DRUG. Serum or plasma vancomycin level (mass/volume) 16.5 ug/mL High 0.0-15.0 [facility] Absolute lymphocyte countOrd ered By: Anurag Irene on 09-07-2024 Lymphocytes Auto (Unsp spec) [#/Vol] 0.95 10*3/uL 0.83-4.51 [facility] Absolute neutrophil countOrd ered By: Anurag Irene on 09-07-2024 Neutrophils (Bld) [#/Vol] 13.3 10*3/uL High 2.0-7.7 [facility] Absolute neutrophil count 13.3 X10^3/uL High 2.0-7.7 [facility] Automated lymphocyte count a s percentage of total leukocytesOrdered By: Anurag Irene on 09-07-2024 Lymphocytes/100 WBC Auto (Unsp spec) 5.8 % Low 19-41 [facility] Basophil percentageOrdered B y: Anurag Irene on 09-07-2024 Basophils/100 WBC (Bld) 0.4 % 0-1 [facility] Basophil percentage 0.4 % 0-1 [facility] Eosinophil percentageOrdered By: Anurag Irene on 09-07-2024 Eosinophils/100 WBC (Bld) 3.0 % 0-5 [facility] Eosinophil percentage 3.0 % 0-5 [facility] Immature granulocytes/100 WB C Auto (Bld)Ordered By: Anurag Irene on 09-07-2024 Immature granulocytes/100 WBC (Bld) 1.400 % High 0.0-0.9 [facility] Comment on above: IG% - Immature Granu locytes (promyelocytes, myelocytes and metamyelocytes) > 1% indicates that a LEFT SHIFT is Present. Automated immature granulocyte percentage 1.400 % High 0.0-0.9 [facility] Lymphocytes Auto (Unsp spec) [#/Vol]Ordered By: Anurag Irene on 09-07-2024 Lymphocytes (Bld) [#/Vol] 0.95 10*3/uL 0.83-4.51 [facility] Absolute lymphocyte count 0.95 X10^3/uL 0.83-4.51 [facility] Lymphocytes/100 WBC Auto (Un sp spec)Ordered By: Anurag Irene on 09-07-2024 Lymphocytes/100 WBC (Bld) 5.8 % Low 19-41 [facility] Automated lymphocyte count as percentage of total leukocytes 5.8 % Low 19-41 [facility] Monocyte percentageOrdered B y: Anurag Irene on 09-07-2024 Monocytes/100 WBC (Bld) 8.6 % 0-10 [facility] Monocyte percentage 8.6 % 0-10 [facility] Neutrophil percentageOrdered By: Anurag Irene on 09-07-2024 Neutrophils/100 WBC (Bld) 80.8 % High 47-70 [facility] Neutrophil percentage 80.8 % High 47-70 [facility] Nucleated red blood cell per centageOrdered By: Anurag Irene on 09-07-2024 Nucleated RBC/100 WBC (Bld) [Ratio] 0 % 0-5 [facility] Nucleated red blood cell percentage 0 % 0-5 [facility] Blood cultureOrdered By: [place] Irene on 09-06-2024 Bacteria identified Cx Nom (Bld) No growth in [address] [facility] Blood culture No growth in 5 days. [facility] Blood cultureOrdered By: Shi Joiner on 09-05-2024 Bacteria identified Cx Nom (Bld) Staphylococcus epidermidis Abnormal [facility] Blood culture Staphylococcus epidermidis Abnormal [facility] Folic acid measurementOrdere d By: Hill Wright on 09-05-2024 Folate 30.10 ng/mL 3.1-55.4 [facility] Folic acid measurement 30.10 ng/mL 3.1-55.4 [facility] Lactic acid measurementOrder ed By: Hill Wright on 09-05-2024 Lactate [Moles/Vol] 2.3 mmol/L High 0.4-2.0 [facility] Comment on above: Critical Result(s) C alled at: 08:26:40 09/05/2024 by: Lucy Haque to [facility]. Results read back by same. Lactic acid measurement 2.3 mmol/L High 0.4-2.0 [facility] Serum ethanol measurementOrd ered By: Hill Wright on 09-05-2024 Ethyl Alcohol Level 4.0 mg/dL [facility] Comment on above: The serum:whole bloo d ethanol ratio is approximately 1.14and varies slightly with hematocrit. Medical Alcohol reference interval and critical value innon-tolerant individuals; 50 - 100 Impairment 100 Intoxication 100 - 250 Severe Poisoning 250 - 400 Deep/possible fatal coma Serum ethanol measurement 4.0 mg/dL [facility] Vitamin B12 measurementOrder ed By: Hill Wright on 09-05-2024 Vitamin B12 Level > 2000 pg/mL High 211-911 [facility] Vitamin B12 measurement > 2000 pg/mL High 211-911 [facility] ALP [Catalytic activity/Vol] Ordered By: Rachel Joiner on 09-04-2024 Serum or plasma alkaline phosphatase measurement 269 U/L High 45-117 [facility] ALT [Catalytic activity/Vol] Ordered By: Rachel Joiner on 09-04-2024 Serum or plasma alanine aminotransferase (ALT) measurement 79 U/L High 16-61 [facility] Albumin [Mass/Vol]Ordered By : Rachel Joiner on 09-04-2024 Serum or plasma albumin measurement (mass/volume) 2.0 g/dL Low 3.2-5.0 [facility] Bilirubin Test strip Ql (U)O rdered By: Rachel Joiner on 09-04-2024 Bilirubin Ql (U) 1 mg/dL High Negative [facility] Comment on above: COLOR OF URINE MAY A FFECT DIPSTICK RESULTS. Bilirubin directOrdered By: Rachel Joiner on 09-04-2024 Bilirubin.direct [Mass/Vol] 1.80 mg/dL High 0.00-0.30 [facility] Bilirubin, totalOrdered By: Rachel Joiner on 09-04-2024 Bilirubin [Mass/Vol] 3.10 mg/dL High 0.20-1.00 [facility] Comment on above: For patients on eltr ombopag therapy, use of Dimension [place] TBIL is not recommended. Bilirubin, total 3.10 mg/dL High 0.20-1.00 [facility] Bilirubin.direct [Mass/Vol]O rdered By: Rachel Joiner on 09-04-2024 Bilirubin direct 1.80 mg/dL High 0.00-0.30 [facility] Blood cultureOrdered By: Shi Joiner on 09-04-2024 Bacteria identified Cx Nom (Bld) [facility] Clarity (U)Ordered By: Kaz Joiner on 09-04-[address] Clear [facility] Color (U)Ordered By: Rachel Joiner on 09-04-2024 Urine color determination Yellow Yellow [facility] Epithelial cells.squamous LM Ql (Urine sed)Ordered By: Rachel Joiner on 09-04-2024 Epithelial cells.squamous LM.HPF (Urine sed) [#/Area] 0 /[HPF] 0-5 [facility] Glucose Ql (U)Ordered By: Brendan Joiner on 09-04-2024 Urine Glucose (UA) Normal mg/dl Normal [facility] Urine glucose detection Normal mg/dl Normal [facility] HbA1c (Bld) [Mass fraction]O rdered By: Hill Wright on 09-04-2024 Hemoglobin A1c percentage 7.3 % High 3.8-5.6 [facility] Hemoglobin A1c percentageOrd ered By: Hill Wright on 09-04-2024 HbA1c (Bld) [Mass fraction] 7.3 % High 3.8-5.6 [facility] Comment on above: Normal < 5.7 % Predi abetic 5.7 - 6.4 % Diabetic >or= 6.5 % Please note range changes. Ketones Test strip Ql (U)Ord ered By: Rachel Joiner on 09-04-2024 Ketones Ql (U) Negative Negative [facility] Laboratory - Chemistry and C hemistry - challengeOrdered By: Rachel Joiner on 09-04-2024 AST [Catalytic activity/Vol] 156 U/L High 15-37 [facility] Leukocyte esterase Test stri p Ql (U)Ordered By: Rachel Joiner on 09-04-2024 Urine leukocyte esterase detection by dipstick 100 /ul High Negative [facility] Methadone, urineOrdered By: Rachel Joiner on 09-04-2024 Urine Methadone Screen Negative < 300 ng/mL [facility] Microorganism identified Cx Nom (Unsp spec)Ordered By: Rachel Joiner on 09-04-2024 Bacteria Detection (PCR) Staphylococcus epidermidis Abnormal [facility] Bacteria Detection (PCR) mecA Resistance Marker Abnormal [facility] Organism identification mecA Resistance Marker Abnormal [facility] Microscopic analysis of urin e for red blood cells (RBC)Ordered By: Rachel Joiner on 09-04-2024 Urine RBC 10-25 SEEN /hpf 0-5 [facility] Microscopic analysis of urine for red blood cells (RBC) 10-25 SEEN /hpf 0-5 [facility] Mucus LM Ql (Urine sed)Order ed By: Rachel Joiner on 09-04-2024 Mucus Ql (Urine sed) 0 SEEN /hpf [facility] Nitrite Test strip Ql (U)Ord ered By: Rachel Joiner on 09-04-2024 Nitrite Ql (U) Negative Negative [facility] No Panel InformationOrdered By: Rachel Joiner on 09-04-2024 156 U/L High 15-37 [facility] Urine Drug Screen Comment [facility] Comment on above: CONFIRMATORY TESTING FOR ALL [...] MUST BE ORDERED SEPARATELY. USE TESTMNEMONIC: [facility] Organism identificationOrder ed By: Rachel Joiner on 09-04-2024 Microorganism identified Cx Nom (Unsp spec) Staphylococcus epidermidis Abnormal [facility] Microorganism identified Cx Nom (Unsp spec) mecA Resistance Marker Abnormal [facility] Protein Test strip Ql (U)Ord ered By: Rachel Joiner on 09-04-2024 Protein Ql (U) 30 mg/dl High Negative [facility] Urine protein assay by test strip, semi-quantitative 30 mg/dl High Negative [facility] Quantitative urine opiates m easurementOrdered By: Rachel Joiner on 09-04-2024 Opiates Ql (U) Positive High < 300 ng/mL [facility] Quantitative urine opiates measurement Positive High < 300 ng/mL [facility] Screening prostate specific antigen (PSA) measurementOrdered By: Hill Wright on 09-04-2024 Prostate Specific Antigen Screen 1.41 ng/mL 0.00-4.00 [facility] Comment on above: This test was perfor med using the TPSA assay method for [employer] chemistry system. Values obtained with differentassay methods cannot be used interchangably.When changing PSA assays in the course of monitoring apatient, additional sequential testing should be carriedout to confirm baseline values. Screening prostate specific antigen (PSA) measurement 1.41 ng/mL 0.00-4.00 [facility] Serum globulin measurementOr dered By: Rachel Joiner on 09-04-2024 Globulin (S) [Mass/Vol] 4.1 g/dL 2.2-4.2 [facility] Serum globulin measurement 4.1 g/dL 2.2-4.2 [facility] Serum or plasma alanine thomas otransferase (ALT) measurementOrdered By: Rachel Joiner on 09-04-2024 ALT [Catalytic activity/Vol] 79 U/L High 16-61 [facility] Serum or plasma albumin roosevelt urement (mass/volume)Ordered By: Rachel Joiner on 09-04-2024 Albumin [Mass/Vol] 2.0 g/dL Low 3.2-5.0 [facility] Serum or plasma alkaline kendrick sphatase measurementOrdered By: Rachel Joiner on 09-04-2024 ALP [Catalytic activity/Vol] 269 U/L High 45-117 [facility] Serum or plasma thyroid stim ulating hormone (TSH) measurement (units/volume)Ordered By: Hill Wright on 09-04-2024 TSH Qn 0.826 uIU/mL 0.358-3.740 [facility] Specific gravity (U) [Rel de nsity]Ordered By: Rachel Joiner on 09-04-2024 Urine specific gravity measurement 1.020 1.002-1.030 [facility] Squamous epithelial cells de tection in urine sediment by light microscopyOrdered By: Rachel Joiner on 09-04-2024 Epithelial cells.squamous LM Ql (Urine sed) 0 SEEN /hpf 0-5 [facility] Squamous epithelial cells detection in urine sediment by light microscopy 0 SEEN /hpf [facility] TSH QnOrdered By: Hill patino on 09-04-2024 Thyroid Stimulating Hormone (TSH) 0.826 uIU/mL 0.358-3.740 [facility] Serum or plasma thyroid stimulating hormone (TSH) measurement (units/volume) 0.826 uIU/mL 0.358-3.740 [facility] Total proteinOrdered By: Shi Joiner on 09-04-2024 Protein [Mass/Vol] 6.1 g/dL Low 6.4-8.2 [place] [facility] Total protein 6.1 g/dL Low 6.4-8.2 [facility] Urine amphetamine measuremen tOrdered By: Rachel Joiner on 09-04-2024 Amphetamines Ql (U) Negative <1000 ng/mL [facility] Urine barbiturates measureme ntOrdered By: Rachel Joiner on 09-04-2024 Urine Barbiturates Screen Negative < 200 ng/mL [facility] Urine benzodiazepine levelOr dered By: Rachel Joiner on 09-04-2024 Benzodiazepines Ql (U) Negative < 200 ng/mL [facility] Urine blood detectionOrdered By: Rachel Joiner on 09-04-2024 Urine Occult Blood 150 /ul High Negative [facility] Urine blood detection 150 /ul High Negative [facility] Urine clarityOrdered By: Shi Joiner on 09-04-2024 Clarity (U) Clear Clear [facility] Urine cocaine levelOrdered B y: Rachel Joiner on 09-04-2024 Cocaine Ql (U) Negative < 300 ng/mL [facility] Urine color determinationOrd ered By: Rachel Joiner on 09-04-2024 Color (U) Yellow Yellow [facility] Urine cultureOrdered By: Hugo Wright on 09-04-2024 Bacteria identified Cx Nom (U) Staphylococcus epidermidis Abnormal [facility] Urine culture Staphylococcus epidermidis Abnormal [facility] Urine rrmfs-3-[id number] abinol (THC) measurementOrdered By: Rachel Joiner on 09-04-2024 Cannabinoids Screen Ql (U) Negative < 50 ng/mL [facility] Urine glucose detectionOrder ed By: Rachel Joiner on 09-04-2024 Glucose Ql (U) Normal mg/dl Normal [facility] Urine ketones detection by t est stripOrdered By: Rachel Joiner on 09-04-2024 Urine ketones detection by test strip Negative < 50 ng/mL [facility] Urine leukocyte esterase det ection by dipstickOrdered By: Rachel Joiner on 09-04-2024 Leukocyte esterase Test strip Ql (U) 100 /ul High Negative [facility] Urine methylenedioxymethamph etamine (MDMA) measurementOrdered By: Rachel Joiner on 09-04-2024 MDMA (Ecstasy) Screen Negative < 500 ng/mL [facility] Urine pHOrdered By: Rachel silva on 09-04-2024 pH (U) 6.0 [pH] 5.0 - 8.0 [facility] Urine phencyclidine (PCP) de tectionOrdered By: Rachel Joiner on 09-04-2024 Phencyclidine Ql (U) Negative < 25 ng/mL [facility] Urine sediment bacteria coun t by microscopy (number/high power field)Ordered By: Rachel Joiner on 09-04-2024 Bacteria LM.HPF (Urine sed) [#/Area] 0 /[HPF] None Seen [facility] Urine specific gravity measu rementOrdered By: Rachel Joiner on 09-04-2024 Specific gravity (U) [Rel density] 1.020 1.002-1.030 [facility] Urine total bilirubin detect ion by test stripOrdered By: Rachel Joiner on 09-04-2024 Urine total bilirubin detection by test strip 1 mg/dL High Normal [facility] Urine urobilinogen measureme ntOrdered By: Rachel Joiner on 09-04-2024 Urobilinogen Ql (U) 1 mg/dl High Normal [facility] Urobilinogen Ql (U)Ordered B y: Rachel Joiner on 09-04-2024 Urobilinogen (U) [Mass/Vol] 1 mg/dL High Normal [facility] Venous blood ammonia measure mentOrdered By: Rachel Joiner on 09-04-2024 Ammonia (P) [Moles/Vol] 26.0 umol/L [facility] Venous blood ammonia measurement 26.0 umol/L [facility] White blood cell countOrdere d By: Rachel Joiner on 09-04-2024 Urine WBC 5-10 SEEN /hpf 0-5 [facility] Comment on above: Previous reported re sult: 0 SEEN /hpfEdited by: DANIEL on 09/04/24:2337 AMENDED REPORT 09/04/24 2337 WBC previously reported as: 0 SEEN /hpf White blood cell count 5-10 SEEN /hpf 0-5 [facility] White blood cell count 5-10 SEEN /hpf 0-5 [facility] pH (U)Ordered By: Rachel lambert on 09-04-2024 Urine pH 6.0 5.0 - 8.0 [facility] Absolute lymphocyte countOrd ered By: Bola Meraz on 09-02-2024 Lymphocytes Auto (Unsp spec) [#/Vol] 1.04 10*3/uL 0.83-4.51 [facility] Absolute neutrophil countOrd ered By: Bola Meraz on 09-02-2024 Neutrophils (Bld) [#/Vol] 14.0 10*3/uL High 2.0-7.7 [facility] Absolute neutrophil count 14.0 X10^3/uL High 2.0-7.7 [facility] Automated lymphocyte count a s percentage of total leukocytesOrdered By: Bola Meraz on 09-02-2024 Lymphocytes/100 WBC Auto (Unsp spec) 6.3 % Low 19-41 [facility] Basophil percentageOrdered B y: Bola Meraz on 09-02-2024 Basophils/100 WBC (Bld) 0.4 % 0-1 [facility] Basophil percentage 0.4 % 0-1 [facility] Blood urea nitrogen (BUN)/cr eatinine ratioOrdered By: Bola Meraz on 09-02-2024 Urea nitrogen/Creatinine [Mass ratio] 16.9 mg/mg 10- [facility] Blood urea nitrogen (BUN)/creatinine ratio 16.9 RATIO 10- [facility] Calcium [Mass/Vol]Ordered By : Bola Meraz on 09-02-2024 Serum or plasma calcium measurement (mass/volume) 8.9 mg/dL 8.5-10.1 [facility] Carbon dioxide measurementOr dered By: Bola Meraz on 09-02-2024 CO2 [Moles/Vol] 19.0 mmol/L Low 21.0-32.0 [facility] Carbon dioxide measurement 19.0 mmol/L Low 21.0-32.0 [facility] Chloride measurementOrdered By: Bola Meraz on 09-02-2024 Chloride [Moles/Vol] 107 mmol/L 98-107 [facility] Chloride measurement 107 mmol/L 98-107 [facility] Creatinine [Mass/Vol]Ordered By: Bola Meraz on 09-02-2024 Serum or plasma creatinine measurement (mass/volume) 2.54 mg/dL High 0.70-1.30 [facility] Eosinophil percentageOrdered By: Bola Meraz on 09-02-2024 Eosinophils/100 WBC (Bld) 1.3 % 0-5 [facility] Eosinophil percentage 1.3 % 0-5 [facility] Erythrocyte distribution wid th (RBC) [Ratio]Ordered By: Bola Meraz on 09-02-2024 Erythrocyte distribution width ratio 15.7 % High 11.6-14.6 [facility] Erythrocyte distribution width standard deviation 47.0 fl High 35.1-43.9 [facility] Erythrocyte distribution wid th ratioOrdered By: Bola Meraz on 09-02-2024 Erythrocyte distribution width (RBC) [Ratio] 15.7 % High 11.6-14.6 [facility] Erythrocyte distribution wid th standard deviationOrdered By: Bola Meraz on 09-02-2024 Erythrocyte distribution width (RBC) [Entitic vol] 47.0 fL High 35.1-43.9 [facility] Erythrocyte distribution width (RBC) [Ratio] 47.0 fl High 35.1-43.9 [facility] Estimated glomerular filtrat ion rate (GFR) AmericanOrdered By: Bola Meraz on 09-02-2024 Estimated GFR (MDRD) Amer 34 mL/min Low >60 [facility] Comment on above: GFR Calc Estimated glomerular filtration rate (GFR) 34 mL/min Low >60 [facility] Estimation of creatinine carolina aranceOrdered By: Bola Meraz on 09-02-2024 Estimated Creatinine Clearance Calc 37.67 ml/min [facility] Estimation of creatinine clearance 37.67 ml/min [facility] Glomerular filtration rate ( GFR) estimationOrdered By: Bola Meraz on 09-02-2024 Estimated GFR (MDRD) Non-Af Amer 28 mL/min Low >60 [facility] Comment on above: Non- GFR Calc GFR/1.73 sq M.predicted among non-blacks MDRD (S/P/Bld) [Vol rate/Area] 28 mL/min/{1.73_m2} Low >60 [facility] Glomerular filtration rate (GFR) estimation 28 mL/min Low >60 [facility] Glucose measurementOrdered B y: Bola Meraz on 09-02-2024 Glucose [Mass/Vol] 187 mg/dL [address] [facility] Comment on above: Fasting Glucose resu lt greater than or equal to 126 mg/dL suggests DIABETES MELLITUS per A.D.A. criteria. Glucose measurement 187 mg/dL [address] [facility] de[facility]dered By: Rick Carlin on 09-02-2024 Bedside Glucose (Misc Panel) 168 mg/dL [address] Comment on above: MANAGEMENT OF PATIEN T CARE PER NURSING PROTOCOL Glucose [Mass/Vol] 168 mg/dL High [facility]106 [facility] Glucose measurement at bedside 168 mg/dL [address] [facility] Hematocrit Auto (Bld) [Volum e fraction]Ordered By: Bola Meraz on 09-02-2024 Hematocrit (Bld) [Volume fraction] 30.8 % Low 40-54 [facility] Automated blood hematocrit (percentage) 30.8 % Low 40-54 [facility] Hemoglobin measurementOrdere d By: Bola Meraz on 09-02-2024 Hemoglobin (Bld) [Mass/Vol] 10.7 g/dL Low 13.0-16.5 [facility] Hemoglobin measurement 10.7 g/dL Low 13.0-16.[address] [facility] Immature granulocytes/100 WB C Auto (Bld)Ordered By: oBla Meraz on 09-02-2024 Immature granulocytes/100 WBC (Bld) 1.300 % High 0.0-0.9 [facility] Comment on above: IG% - Immature Granu locytes (promyelocytes, myelocytes and metamyelocytes) > 1% indicates that a LEFT SHIFT is Present. Automated immature granulocyte percentage 1.300 % High 0.0-0.9 [facility] Lymphocytes Auto (Unsp spec) [#/Vol]Ordered By: Bola Meraz on 09-02-2024 Lymphocytes (Bld) [#/Vol] 1.04 10*3/uL 0.83-4.51 [facility] Absolute lymphocyte count 1.04 X10^3/uL 0.83-4.51 [facility] Lymphocytes/100 WBC Auto (Un sp spec)Ordered By: Bola Meraz on 09-02-2024 Lymphocytes/100 WBC (Bld) 6.3 % Low 19-41 [facility] Automated lymphocyte count as percentage of total leukocytes 6.3 % Low 19-41 [facility] MCV (RBC) [Entitic vol]Order ed By: Bola Meraz on 09-02-2024 MCV (mean corpuscular volume) determination 83.7 fL 80-94 [facility] MCV (mean corpuscular volume ) determinationOrdered By: Bola Meraz on 09-02-2024 MCV (RBC) [Entitic vol] 83.7 fL 80-94 [facility] Mean corpuscular hemoglobin (MCH) determinationOrdered By: Bola Meraz on 09-02-2024 MCH (RBC) [Entitic mass] 29.1 pg 27.0-32.0 [facility] Mean corpuscular hemoglobin (MCH) determination 29.1 pg 27.0-32.0 [facility] Mean corpuscular hemoglobin concentration (MCHC) determinationOrdered By: Bola Meraz on 09-02-2024 MCHC (RBC) [Mass/Vol] 34.7 g/dL 32-36 [facility] Mean corpuscular hemoglobin concentration (MCHC) determination 34.7 g/dL 32-36 [facility] Mean platelet volume determi nationOrdered By: Bola Meraz on 09-02-2024 Platelet mean volume (Bld) [Entitic vol] 12.8 fL High 6.2-12.0 [facility] Mean platelet volume determination 12.8 fl High 6.2-12.0 [facility] Monocyte percentageOrdered B y: Bola Meraz on 09-02-2024 Monocytes/100 WBC (Bld) 6.0 % 0-10 [facility] Monocyte percentage 6.0 % 0-10 [facility] Neutrophil percentageOrdered By: Bola Meraz on 09-02-2024 Neutrophils/100 WBC (Bld) 84.7 % High 47-70 [facility] Neutrophil percentage 84.7 % High 47-70 [facility] Nucleated red blood cell per centageOrdered By: Bola Meraz on 09-02-2024 Nucleated RBC/100 WBC (Bld) [Ratio] 0 % 0-5 [facility] Nucleated red blood cell percentage 0 % 0-5 [facility] Platelet countOrdered By: Oliver on 09-02-2024 Platelets (Bld) [#/Vol] 82 10*3/uL Low 150-450 [facility] Platelet count 82 K/mm3 Low 150-450 [facility] Potassium measurementOrdered By: Bola Meraz on 09-02-2024 Potassium [Moles/Vol] 4.0 mmol/L 3.5-5.1 [facility] Potassium measurement 4.0 mmol/L 3.5-5.1 [facility] RBC Auto (Bld) [#/Vol]Ordere d By: Bola Meraz on 09-02-2024 RBC (Bld) [#/Vol] 3.68 10*6/uL Low 4.6-6.2 [facility] Automated blood erythrocyte count 3.68 M/mm3 Low 4.6-6.2 [facility] Serum anion gap measurementO rdered By: Bola Meraz on 09-02-2024 Anion gap [Moles/Vol] 8 mmol/L 5-15 [facility] Serum anion gap measurement 8 5-15 [facility] Serum or plasma calcium roosevelt urement (mass/volume)Ordered By: Bola Meraz on 09-02-2024 Calcium [Mass/Vol] 8.9 mg/dL 8.5-10.1 [facility] Serum or plasma creatinine m easurement (mass/volume)Ordered By: Bola Meraz on 09-02-2024 Creatinine [Mass/Vol] 2.54 mg/dL High 0.70-1.30 [facility] Comment on above: The validity of the calculated GFR & GFRAA in patients over 70 years has not been determined. Clinical correlation is essential. Serum or plasma urea nitroge n measurement (mass/volume)Ordered By: Bola Meraz on 09-02-2024 Urea nitrogen [Mass/Vol] 43 mg/dL High 7-18 [facility] Sodium levelOrdered By: Deanna Meraz on 09-02-2024 Sodium [Moles/Vol] 133 mmol/L Low 136-145 [facility] Sodium level 133 mmol/L Low 136-145 [facility] Urea nitrogen [Mass/Vol]Orde red By: Bola Meraz on 09-02-2024 Serum or plasma urea nitrogen measurement (mass/volume) 43 mg/dL High 7-18 [facility] White blood cell (WBC) count Ordered By: Bola Meraz on 09-02-2024 WBC (Bld) [#/Vol] 16.5 10*3/uL High 4.4-11.0 [facility] White blood cell (WBC) count 16.5 K/mm3 High 4.4-11.0 [facility] ALP [Catalytic activity/Vol] Ordered By: Maria Guadalupe Shore on 08-30-2024 Serum or plasma alkaline phosphatase measurement 143 U/L High 45-117 [facility] ALT [Catalytic activity/Vol] Ordered By: Maria Guadalupe Shore on 08-30-2024 Serum or plasma alanine aminotransferase (ALT) measurement 19 U/L 16-61 [facility] Albumin [Mass/Vol]Ordered By : Maria Guadalupe Shore on 08-30-2024 Serum or plasma albumin measurement (mass/volume) 1.9 g/dL Low 3.2-5.0 [facility] Bilirubin directOrdered By: Maria Guadalupe Shore on 08-30-2024 Bilirubin.direct [Mass/Vol] 0.83 mg/dL High 0.00-0.30 [facility] Bilirubin, totalOrdered By: Maria Guadalupe Shore on 08-30-2024 Bilirubin [Mass/Vol] 1.30 mg/dL High 0.20-1.00 [facility] Comment on above: For patients on eltr ombopag therapy, use of Dimension [place] TBIL is not recommended. Bilirubin, total 1.30 mg/dL High 0.20-1.00 [facility] Bilirubin.direct [Mass/Vol]O rdered By: Maria Guadalupe Shore on 08-30-2024 Bilirubin direct 0.83 mg/dL High 0.00-0.30 [facility] Ferritin measurementOrdered By: Maria Guadalupe Shore on 08-30-2024 Ferritin [Mass/Vol] 85 ng/mL 388 [facility] Ferritin measurement 85 ng/mL 388 [facility] HbA1c (Bld) [Mass fraction]O rdered By: Maria Guadalupe Shore on 08-30-2024 Hemoglobin A1c percentage 7.9 % High 3.8-5.6 [facility] Hemoglobin A1c percentageOrd ered By: Maria Guadalupe Shore on 08-30-2024 HbA1c (Bld) [Mass fraction] 7.9 % High 3.8-5.6 [facility] Comment on above: Normal < 5.7 % Predi abetic 5.7 - 6.4 % Diabetic >or= 6.5 % Please note range changes. Iron (Unsp spec) [Mass/Mass] Ordered By: Maria Guadalupe Shore on 08-30-2024 Iron [Mass/Vol] 62 ug/dL Low 65-175 [facility] Iron measurement (mass/mass) 62 ug/dL Low 65-175 [facility] Iron measurement (mass/mass) Ordered By: Maria Guadalupe Shore on 08-30-2024 Iron (Unsp spec) [Mass/Mass] 62 ug/dL Low 65-175 [facility] Iron saturation [Mass fracti on]Ordered By: Maria Guadalupe Shore on 08-30-2024 Iron Saturation 33.9 % 15.0-55.0 [facility] Serum or plasma iron saturation measurement (mass fraction) 33.9 % 15.0-55.0 [facility] Laboratory - Chemistry and C hemistry - challengeOrdered By: Maria Guadalupe Shore on 08-30-2024 AST [Catalytic activity/Vol] 22 U/L 15-37 [facility] No Panel InformationOrdered By: Maria Guadalupe Shore on 08-30-2024 22 U/L 15-37 [facility] Serum globulin measurementOr dered By: Maria Guadalupe Shore on 08-30-2024 Globulin (S) [Mass/Vol] 3.4 g/dL 2.2-4.2 [facility] Serum globulin measurement 3.4 g/dL 2.2-4.2 [facility] Serum or plasma alanine thomas otransferase (ALT) measurementOrdered By: Maria Guadalupe Shore on 08-30-2024 ALT [Catalytic activity/Vol] 19 U/L 16-61 [facility] Serum or plasma albumin roosevelt urement (mass/volume)Ordered By: Maria Guadalupe Shore on 08-30-2024 Albumin [Mass/Vol] 1.9 g/dL Low 3.2-5.0 [facility] Serum or plasma alkaline kendrick sphatase measurementOrdered By: Maria Guadalupe Shore on 08-30-2024 ALP [Catalytic activity/Vol] 143 U/L High 45-117 [facility] Serum or plasma iron saturat ion measurement (mass fraction)Ordered By: Maria Guadalupe Shore on 08-30-2024 Iron saturation [Mass fraction] 33.9 % 15.0-55.0 [facility] TIBCOrdered By: Maria Guadalupe Shore on 08-30-2024 Total Iron Binding Capacity 183 ug/dL Low 250-450 [facility] TIBC 183 ug/dL Low 250-450 [facility] Total proteinOrdered By: Aut davi Shore on 08-30-2024 Protein [Mass/Vol] 5.3 g/dL Low 6.4-8.2 [facility] Total protein 5.3 g/dL Low 6.4-8.2 [facility] Venous blood ammonia measure mentOrdered By: Maria Guadalupe Shore on 08-30-2024 Ammonia (P) [Moles/Vol] 64.0 umol/L High [facility] Venous blood ammonia measurement 64.0 umol/L High [facility] Activated partial thrombopla stin time (aPTT) in platelet poor plasma by coagulation aOrdered By: Luis Carlos Anderson on 08-29-2024 aPTT Coag (PPP) [Time] 40.9 s High 24.1-36.[address] [facility] Albumin to globulin ratioOrd ered By: Luis Carlos Anderson on 08-29-2024 Albumin/Globulin [Mass ratio] 0.4 {ratio} Low 0.9-2.4 [facility] Albumin to globulin ratio 0.4 RATIO Low 0.9-2.4 [facility] Bacteria LM.HPF (Urine sed) [#/Area]Ordered By: Luis Carlos Anderson on 08-29-2024 Urine Bacteria RARE /hpf None Seen [facility] Urine sediment bacteria count by microscopy (number/high power field) RARE /hpf None Seen [facility] Bilirubin Test strip Ql (U)O rdered By: Luis Carlos Anderson on 08-29-2024 Bilirubin Ql (U) 1 mg/dL High Negative [facility] Comment on above: COLOR OF URINE MAY A FFECT DIPSTICK RESULTS. Clarity (U)Ordered By: Juan Alberto Anderson on 08-29-[address] [facility] Color (U)Ordered By: Luis Carlos Anderson on 08-29-2024 Urine color determination Yellow Yellow [facility] Creatinine (U) [Mass/Vol]Ord ered By: Maria Guadalupe White on 08-29-2024 Urine creatinine measurement (mass/volume) 173.00 mg/dL NO RANGE EST. [facility] Epithelial cells.squamous LM Ql (Urine sed)Ordered By: Luis Carlos Anderson on 08-29-2024 Epithelial cells.squamous LM.HPF (Urine sed) [#/Area] 0 /[HPF] 0-5 [facility] Squamous epithelial cells detection in urine sediment by light microscopy 0 SEEN /hpf 0-5 [facility] Glucose Ql (U)Ordered By: Yaya Anderson on 08-29-2024 Glucose (U) [Mass/Vol] 50 mg/dL High Normal [facility] Urine glucose detection 50 mg/dl High Normal [facility] International normalized rat io (INR) calculationOrdered By: Luis Carlos Anderson on 08-29-2024 INR Coag (Bld) [Relative time] 1.7 {INR} [facility] International normalized ratio (INR) calculation 1.7 [facility] Ketones Test strip Ql (U)Ord ered By: Luis Carlos Anderson on 08-29-2024 Ketones Ql (U) Negative Negative [facility] Leukocyte esterase Test stri p Ql (U)Ordered By: Luis Carlos Anderson on 08-29-2024 Urine leukocyte esterase detection by dipstick 500 /ul High Negative [facility] Lipase measurementOrdered By : Luis Carlos Anderson on 08-29-2024 Lipase [Catalytic activity/Vol] 26 U/L 13-75 [facility] Comment on above: Please note:LIPASE r evised reference range effective 22. New Lipase methodology. Expected to produce lower values than the previous assay method. NEW Reference Range: 13 - 75 U/L Lipase measurement 26 U/L 13-75 [facility] Magnesium measurementOrdered By: Maria Guadalupe Shore on 08-29-2024 Magnesium [Mass/Vol] 2.7 mg/dL High 1.6-2.6 [facility] Magnesium measurement 2.7 mg/dL High 1.6-2.6 [facility] Microscopic analysis of urin e for red blood cells (RBC)Ordered By: Luis Carlos Anderson on 08-29-2024 Urine RBC 5-10 SEEN /hpf 0-5 [facility] Microscopic analysis of urine for red blood cells (RBC) 5-10 SEEN /hpf 0-5 [facility] Mucus LM Ql (Urine sed)Order ed By: Luis Carlos Anderson on 08-29-2024 Mucus Ql (Urine sed) 1+ /hpf [facility] Mucus detection in urine sediment by light microscopy 1+ /hpf [facility] Nitrite Test strip Ql (U)Ord ered By: Luis Carlos Anderson on 08-29-2024 Nitrite Ql (U) Negative Negative [facility] Phosphorus measurementOrdere d By: Maria Guadalupe Shore on 08-29-2024 Phosphorus Level 4.9 mg/dL 2.5-4.9 [facility] Phosphorus measurement 4.9 mg/dL 2.5-4.[address] [facility] Protein Test strip Ql (U)Ord ered By: Luis Carlos Anderson on 08-29-2024 Protein Ql (U) 30 mg/dl High Negative [facility] Urine protein assay by test strip, semi-quantitative 30 mg/dl High Negative [facility] Prothrombin timeOrdered By: Luis Carlos Anderson on 08-29-2024 PT Coag (PPP) [Time] 20.0 s High 11.7-14.9 [facility] Prothrombin time 20.0 SECONDS High 11.7-14.9 [facility] Sodium urOrdered By: Maria Guadalupe Shore on 08-29-2024 Sodium (U) [Moles/Vol] 30 mmol/L Not Establ. [facility] Sodium [Moles/Vol] 30 mmol/L Not [facility] Sodium ur 30 mmol/L Not Establ. [facility] Specific gravity (U) [Rel de nsity]Ordered By: Luis Carlos Anderson on 08-29-2024 Urine specific gravity measurement 1.015 1.002-1.030 [facility] Squamous epithelial cells de tection in urine sediment by light microscopyOrdered By: Luis Carlos Anderson on 08-29-2024 Epithelial cells.squamous LM Ql (Urine sed) 0 SEEN /hpf 0-5 [facility] [facility] Urine blood detectionOrdered By: Luis Carlos Anderson on 08-29-2024 Urine Occult Blood 150 /ul High Negative [facility] Urine blood detection 150 /ul High Negative [facility] Urine clarityOrdered By: Joann Anderson on 08-29-2024 Clarity (U) Clear Clear [facility] Urine color determinationOrd ered By: Luis Carlos Anderson on 08-29-2024 Color (U) Yellow Yellow [facility] Urine creatinine measurement (mass/volume)Ordered By: Maria Guadalupe Shore on 08-29-2024 Creatinine (U) [Mass/Vol] 173.00 mg/dL NO RANGE EST. [facility] Urine cultureOrdered By: Joann Anderson on 08-29-2024 Bacteria identified Cx Nom (U) Culture exhibits no growth. [facility] Urine culture Culture exhibits no growth. [facility] Urine glucose detectionOrder ed By: Luis Carlos Anderson on 08-29-2024 Glucose Ql (U) 50 mg/dl High Normal [facility] Urine ketones detection by t est stripOrdered By: Luis Carlos Anderson on 08-29-2024 Urine ketones detection by test strip Negative Negative [facility] Urine leukocyte esterase det ection by dipstickOrdered By: Luis Carlos Anderson on 08-29-2024 Leukocyte esterase Test strip Ql (U) 500 /ul High Negative [facility] Urine pHOrdered By: Luis Carlos hammond on 08-29-2024 pH (U) 6.0 [pH] 5.0 - 8.0 [facility] Urine sediment bacteria coun t by microscopy (number/high power field)Ordered By: Luis Carlos Anderson on 08-29-2024 Bacteria LM.HPF (Urine sed) [#/Area] RARE /hpf None Seen [facility] Urine specific gravity measu rementOrdered By: Luis Carlos Anderson on 08-29-2024 Specific gravity (U) [Rel density] 1.015 1.002-1.030 [facility] Urine total bilirubin detect ion by test stripOrdered By: Luis Carlos Anderson on 08-29-2024 Urine total bilirubin detection by test strip 1 mg/dL High Normal [facility] Urine urobilinogen measureme ntOrdered By: Luis Carlos Anderson on 08-29-2024 Urobilinogen Ql (U) 1 mg/dl High Normal [facility] Urobilinogen Ql (U)Ordered B y: Luis Carlos Anderson on 08-29-2024 Urobilinogen (U) [Mass/Vol] 1 mg/dL High Normal [facility] White blood cell countOrdere d By: Luis Carlos Anderson on 08-29-2024 Urine WBC 10-25 SEEN /hpf 0-5 [facility] White blood cell count 10-25 SEEN /hpf 0-5 [facility] White blood cell count 10-25 SEEN /hpf 0-5 [facility] aPTT Coag (PPP) [Time]Ordere d By: Luis Carlos Anderson on 08-29-2024 aPTT Coag (Bld) [Time] 40.9 s High 24.1-36.[address] [facility] Activated partial thromboplastin time (aPTT) in platelet poor plasma by coagulation a 40.9 Seconds High 24.1-36.2 [facility] pH (U)Ordered By: Ashu on 08-29-2024 Urine pH 6.0 5.0 - 8.0 [facility] Vital Signs Date Time Vital Sign Value Performing Clinician Facility 02-17-2025 17:05-0400 Body temperature 98.2 [degF] No Primary Care Physician [facility] 02-17-2025 17:05-0400 Diastolic blood pressure 71 mm[Hg] No Primary Care Physician [facility] 02-17-2025 17:05-0400 Heart rate 74 /min No Primary Care Physician [facility] 02-17-2025 17:05-0400 Respiratory rate 16 /min No Primary Care Physician [facility] 02-17-2025 17:05-0400 SaO2% (BldA) [Mass fraction] 98 % No Primary Care Physician [facility] 02-17-2025 17:05-0400 Systolic blood pressure 123 mm[Hg] No Primary Care Physician [facility] 02-16-2025 19:56-0400 Body height 175.26 cm No Primary Care Physician [facility] 02-16-2025 19:56-0400 Body mass index (BMI) [Ratio] 31.1 kg/m2 No Primary Care Physician [facility] 02-16-2025 19:56-0400 Body weight 95.6 kg No Primary Care Physician [facility] 02-16-2025 19:34-0400 Body temperature 97.8 [degF] No Primary Care Physician [facility] 02-16-2025 19:34-0400 Diastolic blood pressure 61 mm[Hg] No Primary Care Physician [facility] 02-16-2025 19:34-0400 Heart rate 76 /min No Primary Care Physician [facility] 02-16-2025 19:34-0400 Respiratory rate 18 /min No Primary Care Physician [facility] 02-16-2025 19:34-0400 SaO2% (BldA) [Mass fraction] 96 % No Primary Care Physician [facility] 02-16-2025 19:34-0400 Systolic blood pressure 102 mm[Hg] No Primary Care Physician [facility] 02-16-2025 17:20-0400 Body height 175.26 cm No Primary Care Physician [facility] 02-13-2025 21:17-0400 Body temperature 98.8 [degF] No Primary Care Physician [facility] 02-13-2025 21:17-0400 Diastolic blood pressure 75 mm[Hg] No Primary Care Physician [facility] 02-13-2025 21:17-0400 Heart rate 59 /min No Primary Care Physician [facility] 02-13-2025 21:17-0400 Respiratory rate 16 /min No Primary Care Physician [facility] 02-13-2025 21:17-0400 SaO2% (BldA) [Mass fraction] 100 % No Primary Care Physician [facility] 02-13-2025 21:17-0400 Systolic blood pressure 97 mm[Hg] No Primary Care Physician [facility] 02-13-2025 16:30-0400 Body height 175.26 cm No Primary Care Physician [facility] 02-13-2025 16:30-0400 Body mass index (BMI) [Ratio] 33 kg/m2 No Primary Care Physician [facility] 02-13-2025 16:30-0400 Body weight 101.5 kg No Primary Care Physician [facility] 02-11-2025 12:35-0400 Diastolic blood pressure 55 mm[Hg] No Primary Care Physician [facility] 02-11-2025 12:35-0400 Heart rate 63 /min No Primary Care Physician [facility] 02-11-2025 12:35-0400 Respiratory rate 18 /min No Primary Care Physician [facility] 02-11-2025 12:35-0400 Systolic blood pressure 85 mm[Hg] No Primary Care Physician [facility] 02-11-2025 12:33-0400 Body temperature 97.3 [degF] No Primary Care Physician [facility] 02-08-2025 01:26-0400 Body temperature 97.6 [degF] No Primary Care Physician [facility] 02-08-2025 01:26-0400 Diastolic blood pressure 63 mm[Hg] No Primary Care Physician [facility] 02-08-2025 01:26-0400 Heart rate 62 /min No Primary Care Physician [facility] 02-08-2025 01:26-0400 Respiratory rate 18 /min No Primary Care Physician [facility] 02-08-2025 01:26-0400 SaO2% (BldA) [Mass fraction] 100 % No Primary Care Physician [facility] 02-08-2025 01:26-0400 Systolic blood pressure 97 mm[Hg] No Primary Care Physician [facility] 02-07-2025 22:20-0400 Body mass index (BMI) [Ratio] 34.8 kg/m2 No Primary Care Physician [facility] 02-07-2025 22:20-0400 Body weight 107.1 kg No Primary Care Physician [facility] 02-07-2025 19:24-0400 Body height 175.26 cm No Primary Care Physician [facility] 01-31-2025 18:35-0400 Body temperature 98.1 [degF] No Primary Care Physician [facility] 01-31-2025 18:35-0400 Diastolic blood pressure 86 mm[Hg] No Primary Care Physician [facility] 01-31-2025 18:35-0400 Heart rate 100 /min No Primary Care Physician [facility] 01-31-2025 18:35-0400 Respiratory rate 16 /min No Primary Care Physician [facility] 01-31-2025 18:35-0400 SaO2% (BldA) [Mass fraction] 100 % No Primary Care Physician [facility] 01-31-2025 18:35-0400 Systolic blood pressure 127 mm[Hg] No Primary Care Physician [facility] 01-31-2025 09:49-0400 Body height 182.88 cm No Primary Care Physician [facility] 01-31-2025 09:49-0400 Body weight 110.3 kg No Primary Care Physician [facility] 01-28-2025 09:46-0400 Body mass index (BMI) [Ratio] 33 kg/m2 No Primary Care Physician [facility] 01-28-2025 09:00-0400 Body temperature 98 [degF] No Primary Care Physician [facility] 01-28-2025 09:00-0400 Diastolic blood pressure 67 mm[Hg] No Primary Care Physician [facility] 01-28-2025 09:00-0400 Heart rate 106 /min No Primary Care Physician [facility] 01-28-2025 09:00-0400 Respiratory rate 15 /min No Primary Care Physician [facility] 01-28-2025 09:00-0400 SaO2% (BldA) [Mass fraction] 100 % No Primary Care Physician [facility] 01-28-2025 09:00-0400 Systolic blood pressure 125 mm[Hg] No Primary Care Physician [facility] 01-28-2025 02:56-0400 Body height 187.96 cm No Primary Care Physician [facility] 01-28-2025 02:56-0400 Body mass index (BMI) [Ratio] 31.7 kg/m2 No Primary Care Physician [facility] 01-28-2025 02:56-0400 Body weight 112.2 kg No Primary Care Physician [facility] 01-21-2025 13:00-0400 Body temperature 97.7 [degF] No Primary Care Physician [facility] 01-21-2025 13:00-0400 Diastolic blood pressure 60 mm[Hg] No Primary Care Physician [facility] 01-21-2025 13:00-0400 Heart rate 91 /min No Primary Care Physician [facility] 01-21-2025 13:00-0400 Respiratory rate 18 /min No Primary Care Physician [facility] 01-21-2025 13:00-0400 SaO2% (BldA) [Mass fraction] 97 % No Primary Care Physician [facility] 01-21-2025 13:00-0400 Systolic blood pressure 100 mm[Hg] No Primary Care Physician [facility] 01-21-2025 05:13-0400 Body mass index (BMI) [Ratio] 35.8 kg/m2 No Primary Care Physician [facility] 01-21-2025 05:13-0400 Body weight 110.1 kg No Primary Care Physician [facility] 01-17-2025 14:51-0400 Body height 175.26 cm No Primary Care Physician [facility] 01-09-2025 14:01-0400 Heart rate 69 /min No Primary Care Physician [facility] 01-09-2025 14:01-0400 Respiratory rate 16 /min No Primary Care Physician [facility] 01-09-2025 14:01-0400 SaO2% (BldA) [Mass fraction] 100 % No Primary Care Physician [facility] 01-09-2025 14:00-0400 Diastolic blood pressure 59 mm[Hg] No Primary Care Physician [facility] 01-09-2025 14:00-0400 Systolic blood pressure 107 mm[Hg] No Primary Care Physician [facility] 01-09-2025 13:04-0400 Body temperature 98 [degF] No Primary Care Physician [facility] 01-09-2025 10:10-0400 Body height 175.26 cm No Primary Care Physician [facility] 01-09-2025 10:10-0400 Body mass index (BMI) [Ratio] 29.5 kg/m2 No Primary Care Physician [facility] 01-09-2025 10:10-0400 Body weight 90.6 kg No Primary Care Physician [facility] 01-05-2025 16:00-0400 Body temperature 98.1 [degF] No Primary Care Physician [facility] 01-05-2025 16:00-0400 Diastolic blood pressure 60 mm[Hg] No Primary Care Physician [facility] 01-05-2025 16:00-0400 Heart rate 73 /min No Primary Care Physician [facility] 01-05-2025 16:00-0400 Respiratory rate 16 /min No Primary Care Physician [facility] 01-05-2025 16:00-0400 SaO2% (BldA) [Mass fraction] 94 % No Primary Care Physician [facility] 01-05-2025 16:00-0400 Systolic blood pressure 103 mm[Hg] No Primary Care Physician [facility] 01-05-2025 04:44-0400 Body mass index (BMI) [Ratio] 29.9 kg/m2 No Primary Care Physician [facility] 01-05-2025 04:44-0400 Body weight 92.2 kg No Primary Care Physician [facility] 01-02-2025 10:11-0400 Body height 175.26 cm No Primary Care Physician [facility] 01-02-2025 06:34-0400 Body temperature 97.8 [degF] No Primary Care Physician [facility] 01-02-2025 06:34-0400 Diastolic blood pressure 73 mm[Hg] No Primary Care Physician [facility] 01-02-2025 06:34-0400 Heart rate 68 /min No Primary Care Physician [facility] 01-02-2025 06:34-0400 Respiratory rate 20 /min No Primary Care Physician [facility] 01-02-2025 06:34-0400 SaO2% (BldA) [Mass fraction] 100 % No Primary Care Physician [facility] 01-02-2025 06:34-0400 Systolic blood pressure 105 mm[Hg] No Primary Care Physician [facility] 01-02-2025 02:59-0400 Body height 175.26 cm No Primary Care Physician [facility] 01-02-2025 02:59-0400 Body mass index (BMI) [Ratio] 27.5 kg/m2 No Primary Care Physician [facility] 01-02-2025 02:59-0400 Body weight 84.5 kg No Primary Care Physician [facility] 12-30-2024 05:24-0400 Body temperature 97.9 [degF] No Primary Care Physician [facility] 12-30-2024 05:24-0400 Diastolic blood pressure 52 mm[Hg] No Primary Care Physician [facility] 12-30-2024 05:24-0400 Heart rate 71 /min No Primary Care Physician [facility] 12-30-2024 05:24-0400 Respiratory rate 18 /min No Primary Care Physician [facility] 12-30-2024 05:24-0400 SaO2% (BldA) [Mass fraction] 93 % No Primary Care Physician [facility] 12-30-2024 05:24-0400 Systolic blood pressure 93 mm[Hg] No Primary Care Physician [facility] 12-30-2024 01:07-0400 Body height 175.26 cm No Primary Care Physician [facility] 12-30-2024 01:07-0400 Body mass index (BMI) [Ratio] 28.4 kg/m2 No Primary Care Physician [facility] 12-30-2024 01:07-0400 Body weight 87.3 kg No Primary Care Physician [facility] 12-26-2024 14:27-0400 Body temperature 97 [degF] No Primary Care Physician [facility] 12-26-2024 14:27-0400 Diastolic blood pressure 58 mm[Hg] No Primary Care Physician [facility] 12-26-2024 14:27-0400 Heart rate 64 /min No Primary Care Physician [facility] 12-26-2024 14:27-0400 Respiratory rate 16 /min No Primary Care Physician [facility] 12-26-2024 14:27-0400 SaO2% (BldA) [Mass fraction] 97 % No Primary Care Physician [facility] 12-26-2024 14:27-0400 Systolic blood pressure 90 mm[Hg] No Primary Care Physician [facility] 12-26-2024 10:00-0400 Body height 175.26 cm No Primary Care Physician [facility] 12-26-2024 10:00-0400 Body mass index (BMI) [Ratio] 29.7 kg/m2 No Primary Care Physician [facility] 12-26-2024 10:00-0400 Body weight 91.4 kg No Primary Care Physician [facility] 12-02-2024 12:13-0400 Body temperature 98.7 [degF] No Primary Care Physician [facility] 12-02-2024 12:13-0400 Diastolic blood pressure 68 mm[Hg] No Primary Care Physician [facility] 12-02-2024 12:13-0400 Heart rate 86 /min No Primary Care Physician [facility] 12-02-2024 12:13-0400 Respiratory rate 18 /min No Primary Care Physician [facility] 12-02-2024 12:13-0400 SaO2% (BldA) [Mass fraction] 97 % No Primary Care Physician [facility] 12-02-2024 12:13-0400 Systolic blood pressure 117 mm[Hg] No Primary Care Physician [facility] 12-02-2024 02:57-0400 Body mass index (BMI) [Ratio] 33 kg/m2 No Primary Care Physician [facility] 12-02-2024 02:57-0400 Body weight 101.6 kg No Primary Care Physician [facility] 11-29-2024 09:53-0400 Body height 175.26 cm No Primary Care Physician [facility] 11-25-2024 18:31-0400 Body temperature 98.2 [degF] No Primary Care Physician [facility] 11-25-2024 18:31-0400 Diastolic blood pressure 80 mm[Hg] No Primary Care Physician [facility] 11-25-2024 18:31-0400 Heart rate 97 /min No Primary Care Physician [facility] 11-25-2024 18:31-0400 Respiratory rate 18 /min No Primary Care Physician [facility] 11-25-2024 18:31-0400 SaO2% (BldA) [Mass fraction] 98 % No Primary Care Physician [facility] 11-25-2024 18:31-0400 Systolic blood pressure 122 mm[Hg] No Primary Care Physician [facility] 11-24-2024 15:17-0400 Body weight 102.7 kg No Primary Care Physician [facility] 11-21-2024 05:32-0400 Body mass index (BMI) [Ratio] 33.4 kg/m2 No Primary Care Physician [facility] 11-21-2024 05:00-0400 Heart rate 77 /min No Primary Care Physician [facility] 11-21-2024 04:51-0400 Body temperature 98.2 [degF] No Primary Care Physician [facility] 11-21-2024 04:51-0400 Diastolic blood pressure 57 mm[Hg] No Primary Care Physician [facility] 11-21-2024 04:51-0400 Respiratory rate 16 /min No Primary Care Physician [facility] 11-21-2024 04:51-0400 SaO2% (BldA) [Mass fraction] 97 % No Primary Care Physician [facility] 11-21-2024 04:51-0400 Systolic blood pressure 127 mm[Hg] No Primary Care Physician [facility] 11-21-2024 01:32-0400 Body height 175.26 cm No Primary Care Physician [facility] 11-21-2024 01:32-0400 Body mass index (BMI) [Ratio] 34.3 kg/m2 No Primary Care Physician [facility] 11-21-2024 01:32-0400 Body weight 105.4 kg No Primary Care Physician [facility] 11-12-2024 18:03-0400 SaO2% (BldA) [Mass fraction] 99 % KATHIE POWERS [facility] Comment on above: Order Comment: Specimen Type: ARTERIAL B LOOD SPECIMENOrdering Facility: [facility] Address: [address] [place] [address] Performed By: #### A LLBG ####[facility] LABCLIA [id number] [place] [address] [place] 11-10-2024 23:40-0400 Body temperature 97.8 [degF] No Primary Care Physician [facility] 11-10-2024 23:40-0400 Diastolic blood pressure 70 mm[Hg] No Primary Care Physician [facility] 11-10-2024 23:40-0400 Heart rate 110 /min No Primary Care Physician [facility] 11-10-2024 23:40-0400 Respiratory rate 18 /min No Primary Care Physician [facility] 11-10-2024 23:40-0400 SaO2% (BldA) [Mass fraction] 97 % No Primary Care Physician [facility] 11-10-2024 23:40-0400 Systolic blood pressure 116 mm[Hg] No Primary Care Physician [facility] 11-10-2024 04:54-0400 Body mass index (BMI) [Ratio] 36.7 kg/m2 No Primary Care Physician [facility] 11-10-2024 04:54-0400 Body weight 112.8 kg No Primary Care Physician [facility] 11-09-2024 14:30-0400 Body height 175.26 cm No Primary Care Physician [facility] 10-29-2024 01:23-0400 Body temperature 97.4 [degF] No Primary Care Physician [facility] 10-29-2024 01:23-0400 Diastolic blood pressure 54 mm[Hg] No Primary Care Physician [facility] 10-29-2024 01:23-0400 Heart rate 77 /min No Primary Care Physician [facility] 10-29-2024 01:23-0400 Respiratory rate 14 /min No Primary Care Physician [facility] 10-29-2024 01:23-0400 SaO2% (BldA) [Mass fraction] 97 % No Primary Care Physician [facility] 10-29-2024 01:23-0400 Systolic blood pressure 97 mm[Hg] No Primary Care Physician [facility] 10-28-2024 21:43-0400 Body mass index (BMI) [Ratio] 30.4 kg/m2 No Primary Care Physician [facility] 10-28-2024 21:43-0400 Body weight 93.1 kg No Primary Care Physician [facility] 10-28-2024 17:13-0400 Body height 175.01 cm No Primary Care Physician [facility] 10-04-2024 21:45-0500 Diastolic blood pressure 89 mm[Hg] Maurice wen MD Work Phone: [facility] 10-04-2024 21:45-0500 Heart rate 94 /min Maurice Rincon MD Work Phone: [facility] 10-04-2024 21:45-0500 Respiratory rate 18 /min Maurice Rincon MD Work Phone: [facility] 10-04-2024 21:45-0500 SaO2% (BldA) [Mass fraction] 100 % Maurice Rincon MD Work Phone: [facility] 10-04-2024 21:45-0500 Systolic blood pressure 152 mm[Hg] Maurice parada MD Work Phone: [facility] 10-04-2024 12:03-0500 Body temperature 97.59 [degF] Maurice Rincon MD Work Phone: [facility] 10-04-2024 12:03-0500 Body weight 117.48 kg Maurice Rincon MD Work Phone: [facility] 09-29-2024 10:21-0500 Body temperature 97.3 [degF] No Primary Care Physician [facility] 09-29-2024 10:21-0500 Diastolic blood pressure 74 mm[Hg] No Primary Care Physician [facility] 09-29-2024 10:21-0500 Heart rate 81 /min No Primary Care Physician [facility] 09-29-2024 10:21-0500 Respiratory rate 18 /min No Primary Care Physician [facility] 09-29-2024 10:21-0500 Systolic blood pressure 138 mm[Hg] No Primary Care Physician [facility] 09-15-2024 03:49-0500 Body temperature 97.8 [degF] No Primary Care Physician [facility] 09-15-2024 03:49-0500 Diastolic blood pressure 70 mm[Hg] No Primary Care Physician [facility] 09-15-2024 03:49-0500 Heart rate 80 /min No Primary Care Physician [facility] 09-15-2024 03:49-0500 Respiratory rate 17 /min No Primary Care Physician [facility] 09-15-2024 03:49-0500 SaO2% (BldA) [Mass fraction] 96 % No Primary Care Physician [facility] 09-15-2024 03:49-0500 Systolic blood pressure 142 mm[Hg] No Primary Care Physician [facility] [facility] 09-14-2024 04:07-0500 Body mass index (BMI) [Ratio] 36.7 kg/m2 No Primary Care Physician [facility] 09-14-2024 04:07-0500 Body weight 112.8 kg No Primary Care Physician [facility] 09-10-2024 14:03-0500 Body height 175.26 cm No Primary Care Physician [facility] 09-07-2024 01:24-0500 Inhaled oxygen concentration 21 % No Primary Care Physician [facility] 09-06-2024 05:00-0500 Inhaled oxygen flow rate 8 L/min No Primary Care Physician [facility] 09-02-2024 15:36-0500 Body weight 104 kg No Primary Care Physician [facility] 09-02-2024 14:54-0500 Body temperature 98.1 [degF] No Primary Care Physician [facility] 09-02-2024 14:54-0500 Diastolic blood pressure 62 mm[Hg] No Primary Care Physician [facility] 09-02-2024 14:54-0500 Heart rate 60 /min No Primary Care Physician [facility] 09-02-2024 14:54-0500 Respiratory rate 18 /min No Primary Care Physician [facility] 09-02-2024 14:54-0500 SaO2% (BldA) [Mass fraction] 99 % No Primary Care Physician [facility] 09-02-2024 14:54-0500 Systolic blood pressure 118 mm[Hg] No Primary Care Physician [facility] 09-02-2024 03:57-0500 Body mass index (BMI) [Ratio] 33.8 kg/m2 No Primary Care Physician [facility] 08-21-2024 16:33-0500 Body temperature 98.5 [degF] No Primary Care Physician [facility] 08-21-2024 16:33-0500 Diastolic blood pressure 78 mm[Hg] No Primary Care Physician [facility] 08-21-2024 16:33-0500 Heart rate 61 /min No Primary Care Physician [facility] 08-21-2024 16:33-0500 Respiratory rate 12 /min No Primary Care Physician [facility] 08-21-2024 16:33-0500 SaO2% (BldA) [Mass fraction] 97 % No Primary Care Physician [facility] 08-21-2024 16:33-0500 Systolic blood pressure 114 mm[Hg] No Primary Care Physician [facility] 08-21-2024 13:52-0500 Body mass index (BMI) [Ratio] 33 kg/m2 No Primary Care Physician [facility] 08-21-2024 13:52-0500 Body weight 101.5 kg No Primary Care Physician [facility] Encounters Encounter Date Encounter Type Care Provider Facility Start: 02-17-2025 Dr. Anurag Irene MD [facility] Inpatient Physicians Work Phone: Start: 02-16-2025 End: 02-17-2025 ambulatory Jae Ash Facility:[facility] Start: 02-16-2025 Evaluation and manag ement of inpatient No Primary Care Physician -Medical Surgical 3 Start: 02-16-2025 Dr. Jae Ash DO -Medical Surgical 3 Work Phone: Start: 02-16-2025 Dr. Jerald Sherwood MD [facility] Start: 02-16-2025 End: 02-16-2025 ambulatory Jerald Sherwood Facility:[facility] Start: 02-14-2025 ambulatory NONE PHYSICIAN Facility :[facility] Start: 02-13-2025 End: 02-13-2025 No Primary Care Physician -Emergency Department Work Phone: Start: 02-13-2025 End: 02-13-2025 Emergency department patient visit No Primary Care Physician -Emergency Department Start: 02-11-2025 End: 02-11-2025 ambulatory No Primary Care Physician -Ultrasound [facility] Start: 02-11-2025 End: 02-11-2025 Mina Blood DO -Ultrasound [facility] Work Phone: Start: 02-11-2025 End: 02-11-2025 ambulatory Mina Blood Facility:[facility] Start: 02-07-2025 End: 02-08-2025 No Primary Care Physician -Emergency Department Work Phone: Start: 02-07-2025 End: 02-08-2025 Emergency department patient visit No Primary Care Physician -Emergency Department Start: 01-31-2025 Dr. Yaritza Leo [facility] Inpatient Physicians Work Phone: Start: 01-30-2025 Dr. Yaritza Leo [facility] In[facility] Physicians Work Phone: Start: 01-29-2025 Dr. Yaritza Leo [facility] Inpatient Physicians Work Phone: Start: 01-28-2025 ambulatory Boone Izquierdo Facility:[facility] Start: 01-28-2025 End: 01-31-2025 Evaluation and management of inpatient No Primary Care Physician [facility] Work Phone: Start: 01-28-2025 End: 01-31-2025 Dr. Boone Izuqierdo [facility] In[facility]icians Work Phone: Start: 01-21[facility] Start: 01-20[facility] Start: 01-19-20[facility] Start: 01-18-2025 Dr. Anurag [facility] Inpatient Physicians Work Phone: Start: 01-17-[facility] Start: 01-16-2025 Dr. Cielo Lal [place] [facility] Work Phone: Start: 01-15-2025 Dr. Cielo Lal [place] [facility] Work Phone: Start: 01-14-2025 Dr. Cielo Lal [place] [facility] Work Phone: Start: 01-13-2025 Dr. Cielo Tovar MD [facility] In[facility] Work Phone: Start: 01-12-2025 Dr. Cielo Tovar MD [facility] Work Phone: Start: 01-11-2025 Dr. Jefferson Malave MD - [facility] Start: 01-11-2025 Dr. Cielo Tovar MD [facility] Work Phone: Start: 01-11-2025 Dr. Bola Meraz DO -[facility] Start: 01-10-2025 Dr. Cielo Tovar MD [facility] Work Phone: Start: 01-09-2025 ambulatory Yaritza Leo Facility:[facility] Start: 01-09-2025 End: 01-21-2025 Evaluation and management of inpatient No Primary Care Physician [facility] Work Phone: Start: 01-09-2025 End: 01-21-2025 Dr. Yaritza Leo DO -Intensive Care Unit Work Phone: Start: 01-05-2025 Dr. Hill Acuña MD - [facility] Work Phone: Start: 01-04-2025 Dr. Hill Acuña MD - [facility] Work Phone: Start: 01-03-2025 Dr. Hill Acuña MD [facility] Work Phone: Start: 01-02-2025 ambulatory Buster Fuchs Fac ility:[facility] Start: 01-02-2025 End: 01-05-2025 Evaluation and management of inpatient No Primary Care Physician [facility] Work Phone: Start: 01-02-2025 End: 01-05-2025 Dr. Buster Fuchs MD -Progressive Care Unit Work Phone: Start: 12-30-2024 End: 12-30-2024 No Primary Care Physician -Emergency Department Work Phone: Start: 12-30-2024 End: 12-30-2024 Emergency department patient visit No Primary Care Physician [facility] Work Phone: Start: 12-26-2024 End: 12-26-2024 No Primary Care Physician -Emergency Department Work Phone: Start: 12-26-2024 End: 12-26-2024 Emergency department patient visit No Primary Care Physician [facility] Work Phone: Start: 12-15-2024 End: 12-15-2024 ambulatory No Primary Care Physician [facility] Work Phone: Start: 12-15-2024 End: 12-15-2024 Josy Elias PRINCIPAL EXAMINER-C -Ultrasound [facility] Work Phone: Start: 12-15-2024 End: 12-15-2024 ambulatory Josy Elias Facility:[facility] Start: 12-07-2024 End: 12-10-2024 ambulatory Eva Pichardo MD Work Phone: Urology Start: 12-07-2024 End: 12-07-2024 Josy Elias NP-C -[facility] Start: 12-07-2024 End: 12-07-2024 ambulatory [facility] Facility:[facility] Start: 12-02-2024 Dr. Hill Acuña MD - [facility] Work Phone: Start: 12-01-2024 Dr. Hill Acuña MD - [facility] Work Phone: Start: 11-30-2024 Dr. Hill Acuña MD - [facility] Work Phone: Start: 11-29-2024 Dr. Hill Acuña MD - [facility] Work Phone: Start: 11-28-2024 ambulatory Kathie Powers Facility:[facility] Start: 11-28-2024 End: 12-02-2024 Evaluation and management of inpatient Kathie Powers Facility:[facility] Start: 11-28-2024 End: 12-02-2024 Dr. Hill Acuña MD -Progressive Care Unit Work Phone: Start: 11-25-2024 Dr. Anurag Irene MD -[facility] In[facility] Work Phone: Start: 11-24-2024 Dr. Anurag Irene MD -[facility] Work Phone: Start: 11-23-2024 ambulatory Jae Ash Fac ility:[facility] Start: 11-23-2024 End: 11-25-2024 Evaluation and management of inpatient Jae Ash Facility:[facility] Start: 11-23-2024 End: 11-25-2024 Dr. Anurag Irene MD -Medical Surgical 3 Work Phone: Start: 11-22-2024 Dr. Anurag Irene MD -[facility] Work Phone: Start: 11-21-2024 ambulatory Jae Ash Fac ility:[facility] Start: 11-21-2024 observation encounter No Prima ry Care Physician [facility] Work Phone: Start: 11-21-2024 Dr. Jae Ash DO -Medical Surgical 3 Work Phone: Start: 11-18-2024 Patient encounter status Jeremi Abreu RN Work Phone: [facility] Work Phone: Start: 11-18-2024 End: 11-18-2024 Telephone encounter Jeremi Abreu RN Work Phone: Transplant Center Comment on above: Outcome Liver Transp lant Selection Committee Start: 11-15-2024 End: 11-15-2024 Evaluation and management of inpatient Izabela Estuardo Candice DDS Work Phone: Dentistry Comment on above: Liver transplant can didate (Primary Dx); Pre-operative clearance Start: 11-15-2024 End: 11-15-2024 Preoperative state Izabela Harvey DDS Work Phone: [facility] Start: 11-15-2024 End: 11-15-2024 Social Work Marah Arauz CONSTRUCTION DIRECTOR Work Phone: Transplant Center Start: 11-12-2024 End: 11-12-2024 Patient encounter status [facility] Start: 11-12-2024 End: 11-12-2024 Orders Only Liver Txp Coordinator Work Phone: Transplant Center Comment on above: 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 Kathie Powers [...] Start: 11-04-2024 Dr. Hill Acuña MD -[facility] Work Phone: Start: 11-03-2024 Dr. Hill Acuña MD -[facility] Work Phone: Start: 11-02-2024 Dr. Hill Acuña MD -[facility] Work Phone: Start: 11-01-2024 Dr. Hill Acuña MD -[facility] Work Phone: Start: 11-01-2024 Niranjan Li [facility] Start: 10-31-2024 Dr. Buster Fuchs MD -[place] [facility] Work Phone: Start: 10-30-[address] [facility] Start: 10-30-2024 Dr. Buster Fuchs MD -[place] [facility] Work Phone: Start: 10-29-2024 Dr. [address] DO [facility] Start: 10-29-2024 ambulatory No Primary Car e Physician Facility:[facility] Start: 10-29-2024 End: 11-11-2024 Evaluation and management of inpatient Dr. Hill Caro DO -Intensive Care Unit Work Phone: Start: 10-29-2024 End: 11-11-2024 Dr. Kathie Powers MD -Progressive Care Unit Work Phone: Start: 10-19-2024 ambulatory No Primary Car e Physician Facility:[facility] Start: 10-04-2024 End: 10-04-2024 Emergency department patient visit MAURICE RINCON [facility] Emergency Medicine Comment on above: Other ascites (Prima ry Dx); Abdominal pain, generalized; Other cirrhosis of liver; Peripheral edema; Coagulopathy (Multi); Hyperbilirubinemia; Cirrhosis of liver with ascites, unspecified hepatic cirrhosis type (Multi) Start: 09-29-2024 ambulatory No Primary Car e Physician Facility:[facility] Start: 09-29-2024 Non-patient / Non-visit Jasmine nunez PRINCIPAL EXAMINER-C -[facility] Start: 09-29-2024 Jasmine Morocho PRINCIPAL EXAMINER-C - [facility] Start: 09-29-2024 End: 09-29-2024 ambulatory No Primary Care Physician [facility] Work Phone: Start: 09-29-2024 End: 09-29-2024 Patient encounter procedure No Primary Care Physician -Ultrasound, [facility] Work Phone: Start: 09-29-2024 End: 09-29-2024 No Primary Care Physician -Ultrasound, [facility] Work Phone: Start: 09-29-2024 End: 09-29-2024 ambulatory No Primary Care Physician Facility:[facility] Start: 09-14-2024 Non-patient / Non-visit Dr. Boone James [facility] Inpatient Physicians Work Phone: Start: 09-14-2024 Dr. Boone Izquierdo [facility] Inpatient Physicians Work Phone: Start: 09-13-2024 Non-patient / Non-visit Dr. Boone James [facility] Inpatient Physicians Work Phone: Start: 09-13-2024 Dr. Boone Izquierdo [facility] Inpatient Physicians Work Phone: Start: 09-12-2024 Non-patient / Non-visit Dr. Slaughter [facility] Inpatient Physicians Work Phone: Start: 09-12-[address] [facility] Inpatient Physicians Work Phone: Start: 09-11-2024 Non-patient / Non-visit Dr. Slaughter [facility] Inpatient Physicians Work Phone: Start: 09-11-[address] [facility] Inpatient Physicians Work Phone: Start: 09-10-2024 Non-patient / Non-visit Dr. Slaughter [facility] Inpatient Physicians Work Phone: Start: 09-10-[address] [facility] Inpatient Physicians Work Phone: Start: 09-09-2024 Non-patient / Non-visit Dr. Slaughter [facility] Inpatient Physicians Work Phone: Start: 09-09-[address] [facility] Inpatient Physicians Work Phone: Start: 09-08-2024 Non-patient / Non-visit Dr. Anurag Irene MD [facility] Inpatient Physicians Work Phone: Start: 09-08-2024 Dr. Anurag [facility] Inpatient Physicians Work Phone: Start: 09-07-2024 Non-patient / Non-visit Dr. Anurag Ierne MD [facility] Inpatient Physicians Work Phone: Start: 09-07-2024 Dr. Anurag [facility] Inpatient Physicians Work Phone: Start: 09-06-2024 Non-patient / Non-visit Dr. Anurag Irene MD [facility] Inpatient Physicians Work Phone: Start: 09-06-2024 Dr. Anurag [facility] Inpatient Physicians Work Phone: Start: 09-05-2024 ambulatory No Primary Car e Physician Facility:[facility] Start: 09-05-2024 End: 09-15-2024 Evaluation and management of inpatient [facility] Start: 09-05-2024 End: 09-15-2024 Dr. Boone Izquierdo [facility] Care Unit Work Phone: Start: 09-02-2024 Non-patient / Non-visit Dr. Lissette Carlin [facility] Inpatient Physicians Work Phone: Start: 09-02-2024 Dr. Rick gutierrez [facility] Inpatient [facility] Work Phone: Start: 09-01-2024 Non-patient / Non-visit Niranjan Frie nd DO -[facility] Start: 09-01-2024 Niranjan Friend DO -[facility] Start: 09-01-2024 Non-patient / Non-visit Dr. Lissette Carlin [facility] Work Phone: Start: 09-01-2024 Dr. Rick gutierrez [facility] Work Phone: Start: 08-31-2024 Non-patient / Non-visit Niranjan Frie nd DO -[facility] Start: 08-31-2024 Niranjan Friend DO -[facility] Start: 08-31-2024 Non-patient / Non-visit Dr. Lissette Carlin [facility] In[facility] Work Phone: Start: 08-31-2024 [facility] Work Phone: Start: 08-31-2024 Non-patient / Non-visit Dr. Bola Patiño own DO -[facility] Start: 08-31-2024 Dr. Bola Meraz DO -[facility] Start: 08-30-2024 Non-patient / Non-visit Niranjan Sharyn isha DO -[facility] Start: 08-30-2024 Niranjan Friend DO -[facility] Start: 08-30-2024 Non-patient / Non-visit Dr. Lissette Carlin DO -[place] [facility] Work Phone: Start: 08-30-2024 Dr. Rick gutierrez DO [facility] Inpatient Physicians Work Phone: Start: 08-30-2024 Non-patient / Non-visit Dr. Bola Patiño own DO -[facility] Start: 08-30-2024 Dr. Bola Meraz DO -[facility] Start: 08-29-2024 ambulatory [facility] Facility :[facility] Start: 08-29-2024 End: 09-02-2024 Evaluation and management [...] Date Procedure Procedure Detail Performing Clinician Start: 02-17-2025 Calculation of inter national normalized ratio No Primary Care Physician Start: 02-17-2025 Estimated creatinine clearance No Primary Care Physician Start: 02-17-2025 Mean corpuscular hem oglobin concentration determination No Primary Care Physician Start: 02-17-2025 Platelet mean volume determination No Primary Care Physician Start: 02-16-2025 Serum inorganic phos phate measurement No Primary Care Physician Start: 02-16-2025 Blood count smear mc rscp [...] Physician Start: 01-28-2025 Assay of lactate No [facility] Physician Start: 01-28-2025 Computed tomography of [...] Physician Start: 11-28-2024 Assay of lactate No [facility] Physician Start: 11-28-2024 Urine microscopy: red [...] Physician Start: 11-21-2024 Assay of lactate No [facility] Physician Start: 11-21-2024 Urine microscopy: red cells No Primary Care Physician Start: 11-21-2024 Urnls dip stick/tabl et reagent auto microscopy No Primary Care Physician Start: 11-21-2024 Plain chest X-ray No Pr imary Care Physician Start: 11-18-2024 Antibody screen KATHIE P IERCE Comment on above: Order Comment: Speci men Type: BLOOD SPECIMENOrdering Facility: [facility] Address: [address] [place] [address] Performed By: #### T SCR ####CC MAIN BLOOD BANKCLIA [id number] [place] [address] [place] Start: 11-16-2024 End: 11-16-2024 Colonoscopy Jeremi Abreu RN Work Phone: Start: 11-15-2024 Antibody screen KATHIE P IERCE Comment on above: Order Comment: Speci men Type: BLOOD SPECIMENOrdering Facility: [facility] Address: [address] [place] [address] Performed By: #### T SCR ####CC MAIN BLOOD BANKCLIA [id number] [address] Start: 11-13-2024 Lipid 1996 panel - S sandie or Plasma Marah Arauz CONSTRUCTION DIRECTOR Work Phone: Start: 11-12-2024 Antibody screen KATHIE Kieran IESABIHA Comment on above: Order Comment: Speci men Type: BLOOD SPECIMENOrdering Facility: [facility] Address: [address] [place] [address] Performed By: #### T SCR ####CC MAIN BLOOD BANKCLIA [id number] [address] Start: 11-10-2024 Urine microscopy: red cells [...] Physician Start: 09-05-2024 Assay of lactate No [facility] Physician Start: 09-05-2024 Folic acid measurement [...] DTaP,Tdap,Td Vaccine (2 - Td or Tdap) [facility] Start: 11-17-2029 Prostate specific antigen measurement Prostate Cancer Screening Discussion [facility] Start: 11-13-2029 Lipid panel Lipid Screening [facility] Start: 11-19-2027 Diabetes Screening Diabetes Screening [facility] Start: 11-17-2027 Diabetes Screening Diabetes Screening [facility] Start: 11-15-2027 Diabetes Screening Diabetes Screening [facility] Start: 11-13-2027 Diabetes Screening Diabetes Screening [facility] Start: 11-18-2025 Creatinine measurement Serum Creatinine [facility] Start: 11-16-2025 Creatinine measurement Serum Creatinine [facility] Start: 11-16-2025 Screening for malignant neoplasm of colon [facility] Start: 11-15-2025 Creatinine measurement Serum Creatinine [facility] Start: 11-12-2025 Creatinine measurement Serum Creatinine [facility] Start: 05-16-2025 Hepatitis A Vaccine (2 of 2 - Risk 2-dose series) Hepatitis A Vaccine (2 of 2 - Risk 2-dose series) [facility] Start: 03-02-2025 End: 03-02-2025 Patient encounter procedure 03/02/2025 2:20 PM EDT Office Visit [facility] [place] [address] [place] [id number] Alex Alexandre MD [address] [place] [address] Hospital discharge, diabetes mx, need for repeat vaccines, and consideration of CT chest [facility] [place] Comment on above: Hospital discharge, diabetes mx, need fo r repeat vaccines, and consideration of CT chest Start: 02-17-2025 [facility] Start: 02-17-[address] [facility] Start: 02-17-[address] [facility] Start: 02-17-2025 Referral to occupational therapist [facility] Start: 02-17-[address] [facility] Start: 02-17-[address] [facility] Start: 02-16-2025 Application of intermittent pneumatic compression device [facility] Start: 02-16-[address] [facility] Start: 02-16-2025 Assessment of risk of venous thromboembolism [facility] Start: 02-16-[address] [facility] Start: 02-16-2025 Insertion of catheter into peripheral vein [facility] Start: 02-16-[address] intake and output [facility] Start: 02-16-[address] [facility] Start: 02-16-2025 Providing care according to standard [facility] Start: 02-16-2025 Referral to gastroenterology service [facility] Start: 02-16-[address] [facility] Start: 02-16-2025 [facility] Start: 02-16-2025 Care of central venous catheter [facility] Start: 02-16-2025 Following clinical pathway protocol [facility] Start: 02-16-[address] [facility] Start: 02-16-2025 Hospital admission, emergency, from emergency room, medical nature [facility] Start: 02-16-[address] [facility] Start: 02-16-[address] [facility] Start: 02-16-2025 Patient referral to dietitian [facility] Start: 02-13-2025 [facility] Start: 02-08-[address] [facility] Start: 02-08-2025 End: 02-08-2025 [facility] Start: 02-02-2025 End: 02-02-2025 Patient encounter procedure 02/02/2025 9:20 AM EDT Office Visit [facility] [place] [address] [place] [address] Ray Vega MD [address] [place] [address] est care [facility] [place] Comment on above: est care Start: 01-31-[address] [facility] Start: 01-31-[address] [facility] Start: 01-31-2025 [facility] Start: 01-29-2025 [facility] Start: 01-28-[address] [facility] Start: 01-28-2025 Application of intermittent pneumatic compression device [facility] Start: 01-28-2025 Following clinical pathway protocol [facility] Start: 01-28-2025 Assessment of risk of venous thromboembolism [facility] Start: 01-28-2025 Care regimes management [facility] Start: 01-28-2025 Documentation procedure [facility] Start: 01-28-2025 Insertion of catheter into peripheral vein [facility] Start: 01-28-2025 Notification of physician [facility] Start: 01-28-2025 Providing care according to standard [facility] Start: 01-28-2025 Provision of activity privileges [facility] Start: 01-28-2025 Referral to occupational therapist [facility] Start: 01-28-[address] [facility] Start: 01-28-2025 Speech therapy assessment [facility] Start: 01-28-2025 End: 01-28-2025 [facility] Start: 01-28-[address] [facility] Start: 01-28-2025 End: 01-28-2025 [facility] Start: 01-28-2025 End: 01-28-2025 [facility] Start: 01-28-2025 Patient referral to dietitian [facility] Start: 01-21-[address] [facility] Start: 01-18-2025 End: 01-18-2025 Microbial culture, body fluid [facility] Start: 01-18-2025 Care planning and problem solving actions [facility] Start: 01-18-[address] [facility] Start: 01-17-2025 [facility] Start: 01-16-2025 [facility] Start: 01-15-2025 [facility] Start: 01-14-[address] [facility] Start: 01-14-2025 [facility] Start: 01-13-2025 Administration of blood product [facility] Start: 01-13-2025 [facility] Start: 01-12-2025 [facility] Start: 01-11-2025 Application of intermittent pneumatic compression device [facility] Start: 01-11-2025 Referral to general surgeon [facility] Start: 01-11-2025 [facility] Start: 01-10-2025 Care planning and problem solving actions [facility] Start: 01-09-2025 Assessment of risk of venous thromboembolism [facility] Start: 01-09-[address] [facility] Start: 01-09-2025 Catheterization of vein [facility] Start: 01-09-[address] [facility] Start: 01-09-2025 Insertion of catheter into peripheral vein [facility] Start: 01-09-2025 Measuring intake and output [facility] Start: 01-09-2025 Notification of physician [facility] Start: 01-09-2025 Patient referral to dietitian [facility] Start: 01-09-2025 Providing care according to standard [facility] Start: 01-09-2025 Referral to occupational therapist [facility] Start: 01-09-[address] [facility] Start: 01-09-2025 Vital signs measurements [facility] Start: 01-09-2025 [facility] Start: 01-09-2025 End: 01-09-2025 Following clinical pathway protocol [facility] Start: 01-09-[address]25 [address] acid assay [facility] Start: 01-09-[address] [facility] Start: 01-09-[address] [facility] Start: 01-09-2025 Hospital admission, emergency, from emergency room, medical nature [facility] Start: 01-09-2025 End: 01-09-2025 [facility] Start: 01-09-[address] [facility] Start: 01-05-[address] [facility] Start: 01-04-2025 [facility] Start: 01-03-2025 End: 01-03-2025 [facility] Start: 01-03-2025 End: 01-03-2025 Care regimes management [facility] Start: 01-03-2025 Notification of physician [facility] Start: 01-03-2025 [facility] Start: 01-02-2025 Application of intermittent pneumatic compression device [facility] Start: 01-02-[address] [facility] Start: 01-02-2025 Assessment of risk of venous thromboembolism [facility] Start: 01-02-2025 Care regimes management [facility] Start: 01-02-2025 Insertion of catheter into peripheral vein [facility] Start: 01-02-2025 Measuring intake and output [facility] Start: 01-02-2025 Notification of physician [facility] Start: 01-02-2025 Providing care according to standard [facility] Start: 01-02-2025 Referral to occupational therapist [facility] Start: 01-02-[address] [facility] Start: 01-02-2025 End: 01-02-2025 [facility] Start: 01-02-[address] [facility] Start: 01-02-[address] [facility] Start: 01-02-2025 Hospital admission, emergency, from emergency room, medical nature [facility] Start: 01-02-2025 End: 01-02-2025 [facility] Start: 01-02-[address] [facility] Start: 01-02-2025 Patient referral to dietitian [facility] Start: 12-30-[address] [facility] Start: 12-30-2024 Assay of troponin quantitative [facility] Start: 12-30-2024 Basic metabolic panel calcium total [facility] Start: 12-30-2024 Blood count complete auto&auto difrntl wbc [facility] Start: 12-30-2024 Culture bacterial quanttative colony count urine [facility] Start: 12-30-2024 Culture bct isol&prsmptv id isolate ea urine [facility] Start: 12-30-2024 Ecg routine ecg w/least 12 lds trcg only w/o i&r [facility] Start: 12-30-2024 Emergency department visit high/urgent severity [facility] Start: 12-30-2024 Gluc bld gluc mntr dev cleared fda spec home use [facility] Start: 12-30-2024 Iv infusion hydration each additional hour [facility] Start: 12-30-2024 Iv infusion therapy/prophylaxis /dx 1st to [address] [facility] Start: 12-30-2024 Radiologic exam chest [address] [facility] Start: 12-30-2024 Urnls dip stick/tablet reagent auto microscopy [facility] Start: 12-30-2024 [facility] Start: 12-30-2024 End: 12-30-2024 [facility] Start: 12-29-2024 End: 12-29-2024 Patient encounter procedure Endocrinology Comment on above: Diabetes maangement Diabetes maangement/ LVM OF SOONER APPOINTMENT 11/21 Start: 12-26-2024 [facility] Start: 12-26-2024 End: 12-26-2024 [facility] Start: 12-23-2024 End: 12-23-2024 Patient encounter procedure 12/23/2024 9:45 AM EDT Office Visit Vascular Medicine [address] [id number] Pamella Frances, PURCHASING ADMINISTRATOR.RADIATION OFFICER [address] [place] [address] HOSPITAL FOLLOW UP V[facility] Medicine Comment on above: HOSPITAL FOLLOW UP Start: 12-12-2024 Hepatitis B Vaccine (2 of 2 - CpG 2-dose series) Hepatitis B Vaccine (2 of 2 - CpG 2-dose series) [facility] Start: 12-07-2024 End: 12-07-2024 Patient encounter procedure 12/07/2024 3:45 PM EDT Office Visit Urology [address] [address] Eva Pichardo MD [address] [place] [address] L ureteral stent, s/p staghorn calculi Urology Comment on above: L ureteral stent, s/p staghorn calculi Start: 12-07-2024 End: 12-07-2024 Patient encounter procedure 12/07/2024 11:20 AM EDT Office Visit [address] [place] [address] Ksenia Hoyos, PURCHASING ADMINISTRATOR.RADIATION OFFICER [address] [place] [address] Hospital discharge, diabetes mx, need for repeat vaccines, and consideration of [facility] chest [facility] Comment on above: Hospital discharge, diabetes mx, need fo r repeat vaccines, and consideration of CT chest Start: 12-02-[address] [facility] Start: 12-01-[address] [facility] Start: 11-29-2024 [facility] Start: 11-28-[address] [facility] Start: 11-28-2024 Application of intermittent pneumatic compression device [facility] Start: 11-28-2024 Following clinical pathway protocol [facility] Start: 11-28-2024 Assessment of risk of venous thromboembolism [facility] Start: 11-28-2024 Care regimes management [facility] Start: 11-28-2024 Insertion of catheter into peripheral vein [facility] Start: 11-28-2024 Measuring intake and output [facility] Start: 11-28-2024 Notification of physician [facility] Start: 11-28-2024 Providing care according to standard [facility] Start: 11-28-2024 Provision of activity privileges [facility] Start: 11-28-2024 Referral to occupational therapist [facility] Start: 11-28-[address] [facility] Start: 11-28-2024 End: 11-28-2024 [facility] Start: 11-28-[address] [facility] Start: 11-28-[address] [facility] Start: 11-28-2024 Patient referral to dietitian [facility] Start: 11-25-[address] [facility] Start: 11-24-2024 Administration of blood product [facility] Start: 11-23-[address] [facility] Start: 11-22-2024 [facility] Start: 11-21-2024 Care regimes management [facility] Start: 11-21-2024 Notification of physician [facility] Start: 11-21-2024 Following clinical pathway protocol [facility] Start: 11-21-[address] [facility] Start: 11-21-2024 Assessment of risk of venous thromboembolism [facility] Start: 11-21-2024 Insertion of catheter into peripheral vein [facility] Start: 11-21-2024 Measuring intake and output [facility] Start: 11-21-2024 Providing care according to standard [facility] Start: 11-21-2024 Referral to occupational therapist [facility] Start: 11-21-[address] [facility] Start: 11-21-2024 End: 11-21-2024 [facility] Start: 11-21-[address] [facility] Start: 11-21-[address] [facility] Start: 11-21-2024 Hospital admission, emergency, from emergency room, medical nature [facility] Start: 11-21-2024 End: 11-21-2024 [facility] Start: 11-21-[address] [facility] Start: 11-18-2024 End: 11-18-2024 Patient encounter procedure 11/18/2024 3:30 PM EDT Office Visit Cardiology [address] [place] [address] [id number] Liver Tx Evaluation; CONTACT PRECAUTIONS - C-Diff; last of the day Cardiology Comment on above: G; Liver Tx Evaluation; CONTACT PRECAUTIONS - C-Diff; last of the day Start: 11-17-2024 End: 11-17-2024 Patient encounter procedure Pulmonary Medicine Comment on above: C-diff precuations/RA-2L/Reg WC Start: 11-15-2024 End: 11-15-2024 Patient encounter procedure 11/15/2024 1:15 PM EDT Office Visit Dentistry [address] [phone] Izabela Harvey, DDS [address] [place], [place] [id number] BEDSIDE - TRANSPLANT [place] - [id number] - Consult Placed 11/12/24 Dentistry Comment on above: BEDSIDE - TRANSPLANT [place] - [id number] - Consult Placed 11/12/24 Start: 11-10-[address] [facility] Start: 11-09-[address] [facility] Start: 11-09-2024 Referral to gastroenterology service [facility] Start: 11-09-2024 Glucose measurement, body fluid [facility] Start: 11-08-2024 Urinary bladder residual urine study [facility] Start: 11-08-2024 [facility] Start: 11-05-2024 Removal of urinary catheter [facility] Start: 11-04-2024 [facility] Start: 10-31-2024 [facility] Start: 10-30-2024 Attention to flatus tube [facility] Start: 10-30-2024 Referral to gastroenterology service [facility] Start: 10-29-2024 Insertion of nasogastric tube [facility] Start: 10-29-2024 Bacteria identified in Blood by Culture Blood Culture [facility] Start: 10-29-[address] [facility] Start: 10-29-2024 Application of intermittent pneumatic compression device [facility] Start: 10-29-2024 Following clinical pathway protocol [facility] Start: 10-29-[address] [facility] Start: 10-29-2024 Catheterization of vein [facility] Start: 10-29-[address] [facility] Start: 10-29-2024 Notification of physician [facility] Start: 10-29-2024 Vital signs measurements [facility] Start: 10-29-2024 [facility] Start: 10-29-2024 End: 10-29-[address] [facility] Start: 10-29-2024 Clostridioides difficile DNA [Presence] in Unspecified specimen by ANANTH with probe detection [facility] Start: 10-29-2024 Complete ultrasound of kidneys and bladder Kidney and Bladder [facility] Start: 10-29-2024 Lactoferrin [Presence] in Stool by Immunoassay [facility] Start: 10-29-[address] [facility] Start: 10-29-[address] [facility] Start: 10-29-2024 End: 10-29-2024 Hospital admission, emergency, from emergency room, medical nature [facility] Start: 10-29-2024 End: 10-29-2024 [facility] Start: 10-29-2024 [facility] Start: 10-28-2024 [facility] Start: 10-28-2024 Bacteria identified in Urine by Culture Urine Culture [facility] Start: 09-14-[address] [facility] Start: 09-06-[address] [facility] Start: 09-06-2024 Referral to occupational therapist [facility] Start: 09-06-2024 Referral to speech and hearing director [facility] Start: 09-06-[address] [facility] Start: 09-06-2024 Care planning and problem solving actions [facility] Start: 09-06-2024 [facility] Start: 09-05-2024 Application of intermittent pneumatic compression device [facility] Start: 09-05-2024 Continuous positive airway pressure ventilation treatment [facility] Start: 09-05-[address] [facility] Start: 09-05-2024 Care regimes management [facility] Start: 09-05-2024 Catheterization of vein [facility] Start: 09-05-[address] [facility] Start: 09-05-2024 Notification of physician [facility] Start: 09-05-2024 Vital signs measurements [facility] Start: 09-05-2024 End: 09-05-2024 [facility] Start: 09-05-2024 Following clinical pathway protocol [facility] Start: 09-05-[address] [facility] Start: 09-05-2024 Patient referral to [facility] Start: 09-02-[address] [facility] Start: 08-31-2024 Care planning and problem solving actions [facility] Start: 08-30-2024 [facility] Start: 08-29-2024 Following clinical pathway protocol [facility] Start: 08-29-2024 Assessment of risk of venous thromboembolism [facility] Start: 08-29-2024 Care regimes management [facility] Start: 08-29-[address] [facility] Start: 08-29-[address] [facility] Start: 08-29-2024 Insertion of catheter into peripheral vein [facility] Start: 08-29-2024 Measuring intake and output [facility] Start: 08-29-2024 Notification of physician [facility] Start: 08-29-2024 Patient referral to dietitian [facility] Start: 08-29-2024 Providing care according to standard [facility] Start: 08-29-2024 Provision of activity privileges [facility] Start: 08-29-2024 Referral to gastroenterology service [facility] Start: 08-29-2024 Referral to speech and hearing director [facility] Start: 08-29-2024 Referral to occupational therapist [facility] Start: 08-29-[address] [facility] Start: 08-29-2024 Vital signs measurements [facility] Start: 08-29-2024 End: 08-29-2024 [facility] Start: 08-29-[address] [facility] Start: 08-21-2024 [facility] Start: 04-04-2024 COVID-19 Vaccine ( season) COVID-19 Vaccine ( season) [facility] Start: 04-04-2024 Influenza vaccination Influenza Vaccine (#1) [facility] Start: 2021 Prostate specific antigen measurement Prostate Cancer Screening Discussion [facility] Start: 2016 Zoster Vaccines (1 of 2) Zoster Vaccines (1 of 2) [facility] Start: 2011 Screening for malignant neoplasm of colon [facility] Start: 2001 Lipid panel Lipid Screening [facility] Start: 1988 DTaP/Tdap/Td Vaccines (1 - Tdap) DTaP/Tdap/Td Vaccines (1 - Tdap) [facility] Start: 1985 Hepatitis A Vaccine (1 of 2 - Risk 2-dose series) Hepatitis A Vaccine (1 of 2 - Risk 2-dose series) [facility] Start: 1985 Hepatitis A Vaccines (1 of 2 - Risk 2-dose series) Hepatitis A Vaccines (1 of 2 - Risk 2-dose series) [facility] Start: 1985 Hepatitis B Vaccine (1 of 3 - 19+ 3-dose series) Hepatitis B Vaccine (1 of 3 - 19+ 3-dose series) [facility] Start: 1985 Hepatitis B Vaccines (1 of 3 - 19+ 3-dose series) Hepatitis B Vaccines (1 of 3 - 19+ 3-dose series) [facility] Start: 1985 Pneumococcal vaccination Pneumococcal Vaccine (1 of 2 - PCV) [facility] Start: 1985 Pneumococcal Vaccine: 50+ (1 of 2 - PCV) Pneumococcal Vaccine: 50+ (1 of 2 - PCV) [facility] Start: 1985 Shingrix Vaccine (1 of 2) Shingrix Vaccine (1 of 2) [facility] Start: 1985 Urine microalbumin profile DTaP,Tdap,Td Vaccine (1 - Tdap) [facility] Start: 1984 Annual PCP Team Chronic Disease Visit Annual PCP Team Chronic Disease Visit [facility] Start: 1984 Anxiety Screening Anxiety Screening [facility] Start: 1984 Depression Screening Depression Screening [facility] Start: 1984 Hepatitis C screening Hepatitis C Screening [facility] Start: 1984 HIV screening HIV Screening [facility] Start: 1976 Glaucoma screening Diabetes: Retinopathy Screening [facility] Start: 1967 MMR Vaccines (1 of 1 - Standard series) MMR Vaccines (1 of 1 - Standard series) [facility] Start: 1966 Hemoglobin A1c measurement Diabetes: Hemoglobin A1C [facility] Start: 1966 HIV screening HIV Screening [facility] Start: 1966 Lipid panel Lipid Panel [facility] Start: 1966 Screening for malignant neoplasm of colon [facility] Start: 1966 Urine screening for protein Diabetes: Urine Protein Screening [facility] Start: 1966 Yearly Adult Physical Yearly Adult Physical [facility] Alanine aminotransfe rase [Enzymatic activity/volume] in Serum or Plasma [facility] End: 10-04-2024 Albumin [Mass/volume] in Body fluid [facility] Work Phone: Comment on above: Once (Lab) for 1 Occurrences starting until 10/04/2024 Once for 1 Occurrenc es starting 10/04/2024 until 10/04/2024 Albumin [Mass/volume ] in Serum or Plasma [facility] Alkaline phosphatase [Enzymatic activity/volume] in Serum or Plasma [facility] Anion gap in Serum o r Plasma [facility] End: 10-04-2024 Bacteria identified in Body fluid by Culture [facility] Work Phone: Comment on above: Once (Lab) for 1 Occurrences starting until 10/04/2024 Bilirubin, total measurement [facility] BUN/Creatinine ratio [facility] Calcium [Mass/volume ] in Serum or Plasma [facility] Carbon dioxide, tota l [Moles/volume] in Central venous blood [facility] CBC W Auto Different ial panel - Blood [facility] End: 10-04-2024 Clostridioides difficile toxin A+B tcdA+tcdB genes [Presence] in Stool by ANANTH with probe detection C. difficile, PCR Microbiology STAT STAT (Lab) for 1 Occurrences starting 10/04/2024 until 10/04/2024 [facility] Work Phone: Comment on above: STAT (Lab) for 1 Occurrences starting until 10/04/2024 Comprehensive metabo lic 2000 panel - Serum or Plasma [facility] Creatinine [Mass/vol ume] in Serum or Plasma [facility] Cytology report of B carmelina fluid Cyto stain [facility] Erythrocyte mean corpuscular volume determination [facility] End: 10-04-2024 Extra Urine Toney Tube Extra Urine Toney Tube Lab Timed Once for 1 Occurrences starting 10/04/2024 until 10/04/2024 [facility] Work Phone: Comment on above: Once for 1 Occurrences starting 10/05/19 until 10/04/2024 End: 10-04-2024 Glucose [Mass/volume] in Body fluid [facility] Work Phone: Comment on above: Once (Lab) for 1 Occurrences starting until 10/04/2024 Once for 1 Occurrenc es starting 10/04/2024 until 10/04/2024 Glucose [Mass/volume ] in Serum or Plasma [facility] Glucose [Mass/volume ] in Serum or Plasma [facility] Hematocrit [Volume Fraction] of Blood [facility] Hemoglobin [Mass/vol ume] in Blood [facility] End: 10-04-2024 Hemoglobin.gastrointestin al.lower [Presence] in Stool by Immunoassay Fecal Occult Blood Immunoassy Microbiology STAT Once (Lab) for 1 Occurrences starting 10/04/2024 until 10/04/2024 [facility] Work Phone: Comment on above: Once (Lab) for 1 Occurrences starting until 10/04/2024 Hepatitis A virus Ig M Ab [Presence] in Serum [facility] Hepatitis B core ant ibody measurement, IgM type [facility] Hepatitis B surface antigen measurement [facility] Hepatitis C antibody measurement [facility] INR in Blood by Coagulation assay [facility] End: 10-04-2024 Lactate dehydrogenase [Enzymatic activity/volume] in Body fluid by Lactate to pyruvate reaction [facility] Work Phone: Comment on above: Once (Lab) for 1 Occurrences starting until 10/04/2024 Once for 1 Occurrenc es starting 10/04/2024 until 10/04/2024 Lactate dehydrogenas e [Enzymatic activity/volume] in Body fluid by Pyruvate to lactate reaction [facility] Lactic acid measurement [facility] Lactic acid measurement [facility] Leukocytes [#/volume ] in Blood [facility] Magnesium measurement [facility] Mean corpuscular hemoglobin concentration determination [facility] Mean corpuscular hemoglobin determination [facility] Measurement of renal function [facility] Neutrophil count [facility] Neutrophil percent differential count [facility] End: 10-04-2024 Non-gynecological cytology method study Cytology (Non-Gynecologic) Pathology and Cytology Routine Once (Lab) for 1 Occurrences starting 10/04/2024 until 10/04/2024 [facility] Service Area Work Phone: Comment on above: Once (Lab) for 1 Occurrences starting until 10/04/[address] parasites identification [facility] Patient Education [facility] Work Phone: Patient referral [facility] Work Phone: End: 10-04-2024 pH of Body fluid [facility] Work Phone: Comment on above: Once (Lab) for 1 Occurrences starting until 10/04/2024 Platelets [#/volume] in Blood [facility] Potassium measurement [facility] End: 10-04-2024 Protein [Mass/volume] in Body fluid [facility] Work Phone: Comment on above: Once (Lab) for 1 Occurrences starting until 10/04/2024 Once for 1 Occurrenc es starting 10/04/2024 until 10/04/2024 Protein [Mass/volume ] in Body fluid [facility] Prothrombin time [facility] Red blood cell count [facility] Red cell distributio n width determination [facility] Serum chloride measurement [facility] Sodium measurement [facility] End: 10-04-2024 Stool Pathogen Panel, PCR Stool Pathogen Panel, PCR Microbiology STAT Once (Lab) for 1 Occurrences starting 10/04/2024 until 10/04/2024 [facility] Work Phone: Comment on above: Once (Lab) for 1 Occurrences starting until 10/04/2024 Total protein measurement [facility] UA DIP, URINE (POC) UA DIP, URIN E (POC) Lab Routine Screening for genitourinary condition 1 Occurrences starting 12/07/2024 [facility] Work Phone: Comment on above: 1 Occurrences starting 12/07/2024 Urea nitrogen [Mass/volume] in Serum or Plasma [facility] End: 10-04-2024 Urinalysis complete W Reflex Culture panel - Urine [facility] Service Area Work Phone: Comment on above: Once (Lab) for 1 Occurrences starting until 10/04/2024 Once for 1 Occurrenc es starting 10/04/2024 until 10/04/2024 Urine culture [facility] Urine culture [facility] Urine culture [facility] Urine culture [facility] Urine culture [facility] Urine culture [facility] Urine culture [facility] Urine culture [facility] Immunizations Immunization Date Immunization Notes Care Provider Fa albertoty 11-16-2024 COVID-19 vaccine, ag e 12+ yr ([employer] [facility]) Jeremi Abreu RN Work Phone: [facility] 11-15-2024 pneumococcal conjuga te (PCV20) vaccine, 20 valent (PREVNAR 20) Marah Arauz CONSTRUCTION DIRECTOR Work Phone: [facility] 11-14-2024 hepatitis A vaccine, adult dosage Marah Arauz CONSTRUCTION DIRECTOR Work Phone: [facility] 11-14-2024 Hepatitis B vaccine (recombinant), CpG adjuvanted Marah Arauz CONSTRUCTION DIRECTOR Work Phone: [facility] 11-14-2024 tetanus toxoid, redu danica diphtheria toxoid, and acellular pertussis vaccine, adsorbed Marah Helwellington CONSTRUCTION DIRECTOR Work Phone: [facility] 09-20-2024 influenza, seasonal, injectable Jeremi Abreu RN Work Phone: [facility] Work Phone: 09-15-2024 tuberculin skin test ; purified protein derivative solution, intradermal Jeremi Abreu RN Work Phone: [facility] Payers Date Payer Category Payer Self-pay 2024 Medicaid [id number] 2024 Medicaid [id number] 1965 Unknown [id number] 1965 Unknown [id number] Unknown [id number] Social History Date Type Detail Facility Start: 10-04-2024 End: 02-16-2025 Tobacco smoking status NHIS Ex-smoker [facility] Work Phone: History of tobacco use [facility] Work Phone: History of tobacco use [facility] Work Phone: Start: 10-04-2024 End: 11-11-2024 Tobacco use and exposure Smokeless tobacco non-user [facility] Work Phone: Start: 10-04-2024 Alcoholic beverage intake Ex-drinker (finding) [facility] Work Phone: Start: 10-04-2024 End: 11-15-2024 History of Social function [place] [facility] Start: 10-04-2024 End: 11-15-2024 Tobacco use panel [facility] Start: 1965 Sex assigned at Not on file [facility] Work Phone: Start: 09-24-2024 End: 10-04-2024 Exposure to SARS-CoV-2 (event) Not sure [facility] Work Phone: Start: 10-11-2024 End: 11-21-2024 Sex Male (finding) [facility] Start: 1965 Sex Assigned At Male [facility] Start: 11-11-2024 End: 11-18-2024 Alcoholic beverage intake Lifetime non-drinker (finding) [facility] Has the Red-rabbit, or water Cornice threatened to shut off services in your home in past 12Mo No [facility] (I/We) worried pete er (my/our) food would run out before (I/we) got money to buy more. Sometimes true [facility] In the past 12 month s, has lack of transportation kept you from medical appointments or from getting medications? Yes [facility] Medical Equipment Procedure Code Equipment Code Equipment Origin al Text Equipment Identifier Dates Cystoscopic insertion of stent ([id number]) [id number] FDA Start: 09-05-2024 Goals Date Patient Goal Desired Activity /State Functional Status Date Assessment Result Facility 02-17-2025 Functional status Bathroom Privi lege;Back to bed [facility] Work Phone: 01-31-2025 Functional status Ambulates [facility] Work Phone: 01-21-2025 Functional status Ambulates [facility] Work Phone: 01-05-2025 Functional status With Assist of 1 [facility] Work Phone: 01-05-2025 Functional status Ambulates;Bath room Privilege [facility] Work Phone: 12-02-2024 Functional status Ambulates [facility] Work Phone: 11-25-2024 Functional status Bedrest [facility] Work Phone: 11-18-2024 Are you deaf, or do you have serious difficulty hearing Yes 11/18/2024 10:13 AM Anika Andino, DAYSI Yes [facility] 11-18-2024 Are you blind, or do you have serious difficulty seeing, even when wearing glasses No 11/18/2024 10:13 AM Anika Andino RN No [facility] 11-18-2024 Do you have serious difficulty walking or climbing stairs Yes 11/18/2024 10:13 AM Anika Andino RN Yes [facility] 11-18-2024 Do you have difficul ty dressing or bathing Yes 11/18/2024 10:13 AM Anika Andino, DAYSI Yes [facility] 11-18-2024 Because of a physica l, mental, or emotional condition, do you have difficulty doing errands alone such as visiting a physician's office or shopping Yes 11/18/2024 10:13 AM EDT Anika Carolina RN Yes [facility] 11-11-2024 Functional status Bedpan [facility] Work Phone: 09-15-2024 Functional status Ambulates [facility] Work Phone: 09-02-2024 Functional status Bathroom Privilege [facility] Work Phone: Mental Status Date Assessment Result Facility 02-17-2025 Cognitive function Voice/Name [facility] Work Phone: 02-16-2025 Cognitive function Alert;Appropr iate;Follow s Commands;Drowsy [facility] Work Phone: 02-11-2025 Cognitive function Awake;Alert;Appropriat e [facility] Work Phone: 01-31-2025 Cognitive function Cooperative;A nxious;Talk ative [facility] Work Phone: 01-30-2025 Cognitive function Voice/Name [facility] Work Phone: 01-28-2025 Cognitive function Awake;Alert;A ppropriate; Follows Commands [facility] Work Phone: 01-21-2025 Cognitive function Voice/Name [facility] Work Phone: 01-05-2025 Cognitive function Voice/Name [facility] Work Phone: 01-02-2025 Cognitive function Awake;Alert;Appropriat e [facility] Work Phone: 12-30-2024 Cognitive function Awake;Alert;A ppropriate; Follows Commands [facility] Work Phone: 12-02-2024 Cognitive function Voice/Name [facility] Work Phone: 11-25-2024 Cognitive function Voice/Name [facility] Work Phone: 11-18-2024 Because of a physica l, mental, or emotional condition, do you have serious difficulty concentrating, remembering, or making decisions Yes 11/18/2024 10:13 AM EDT Anika Carolina RN Yes [facility] 11-10-2024 Cognitive function Voice/Name [facility] Work Phone: 09-29-2024 Cognitive function Awake;Alert;A ppropriate; Follows Commands [facility] Work Phone: 09-14-2024 Cognitive function Appropriate;Cooperativ e [facility] Work Phone: 09-14-2024 Cognitive function Voice/Name [facility] Work Phone: 09-02-2024 Cognitive function Voice/Name [facility] Work Phone: Clinical Notes 08-30-2024 to 02-17-2025 Note Date & Type Note Facility 02-17-2025 Note [facility] 02-16-2025 Discharge summary Note Date/Time February 16, 2025 6:39pm [facility] Medical Records Department [address] [place] [address] Emergency Department Summary 02/16/25 MR#: [id number] Acct: [id number] Name: FRANKLIN WIGGINS Rep #:[id number] : [...] Recent Illness/Hospitalization: No PFSH PFSH Medical History VRE (vancomycin resistant enterococcus) culture [...] liver enzymes. Patient [facility] be admitted [facility]. History & Record Review Discussion w/independent [...] diabetes mellitus Disposition Disposition: Acute Care [facility] What to do if you have Problems For any increased pain, shortness of breath, bleeding, nausea or vomiting, chestpain, or any unexpected problems, contact your Primary Care Provider. Call [facility] ([phone]) or report to the closest Emergency Room. Call 911 if necessary. 02/16/251838 <Electronically signed by Alber Dunn MD> Cosigner Signature (if applicable): CC: Dr. Jerald Sherwood MD ~ Signed [facility] Work Phone: 1(817) 808-339107-16-2025 Procedure [facility] 02-13-2025 Radiology Diagnostic study [facility]07-11-2025 Radiology Diagnostic study [facility]07-08-2025 Radiology Diagnostic study [facility]06-30-2025 Discharge summary Author Yaritza Leo [facility] Note Date/Time January 31, 2025 2:41 pm [facility] Medical Records Department [address] [place] [address] Discharge Summary 01/31/25 1217 MR#: [id number] Acct: [id number] Name: FRANKLIN WIGGINS Rep #:[id number] : 1965 59 From: Yaritza Leo DO PCP: Dr. Jerald Sherwood MD Status:ADM I N Location: [place] [address] Providers Date of Admission: 01/28/25 Date of [...] a 59-year-old male who [facility] to [facility] she was discharged on [...] Final Vancomycin Resist. E. faecalis GNR lactose shaft repairer 01/28/25 06:15 Blood Culture (Wb) - Anticubital [...] Self Care Charges/Coding Visit Charges Inpatient E&M: 63280 Disch Hosp >30min 01/31/25 1441 <Electronically signed by Yaritza Leo DO> Cosigner Signature (if applicable): CC: Dr. Yaritza Leo DO; Dr. Jerald Sherwood MD~ Signed [facility] Work Phone: 1(339) 882-796006-30-2025 [facility]06-30-2025 Hospital Discharge instructionsAdditional Instructions 1. Goal bowel movements with lactulose is 2-3 bowel movements daily. If you are having more than 3 bowel movements daily please decrease your lactulose from 3 times daily to 2 times daily 2. It is very important that you are compliant with your medications and utilize them as directed Date of Discharge: 01/31/25[facility] Work Phone: 1(932) 962-968406-29-2025 Progress note Author Yaritza Leo [facility] Note Date/Time January 30, 2025 1:37 pm [facility] Medical Records Department [address] [place] [address] Progress Note - Hospitalist 01/30/2528 MR#: [id number] Acct: [id number] Name: FRANKLIN WIGGINS Rep #:[id number] : 1965 59 From: Yaritza Leo DO PCP: Dr. Jerald Sherwood MD Status:ADM I N Location: [place] [address] Reason for Visit Reason for Visit: Fever [...] Neut % (Auto) 53.2, Lymph % (Auto) 20.0,[place] % (Auto) 18.5 H, Eos % (Auto) [...] Preliminary GPC Poss Enterococcus sp GNR lactose shaft repairer 01/28/25 03:10 Mucosa - Nose SARS-CoV-2, Influenza [...] Full code Charges/Coding Visit Charges Inpatient E&M: 21936 Subs Hosp L2 01/30/25 1337 <Electronically signed by Yaritza Leo DO> Cosigner Signature (if applicable): CC: ~ Signed [facility] Work Phone: 1(355) 905-416406-28-2025 Progress note Author Yaritza Leo [facility] Note Date/Time January 29, 2025 5:59 pm [facility] Medical Records Department [address] [place] [address] Progress Note - Hospitalist 01/29/25 0754 MR#: [id number] Acct: [id number] Name: FRANKLIN WIGGINS Rep #:[id number] : 1965 59 From: Yaritza Leo DO PCP: Dr. Jerald Sherwood MD Status:ADM I N Location: [place] [address] Reason for Visit Reason for Visit: Fever [...] (Auto) 60.8, Lymph % (Auto) 17.1 L, [place] % (Auto) 15.2 H, Eos % (Auto) [...] Full code Charges/Coding Visit Charges Inpatient E&M: 45339 Subs Hosp L2 01/29/25 6789 <Electronically signed by Yaritza Leo DO> Cosigner Signature (if applicable): CC: ~ Signed [facility] Work Phone: 1(804) 489-307606-27-2025 History and physical note Author Boone Izquierdo [facility] Note Date/Time January 28, 2025 7:[address] [facility] Medical Records Department [address] [place] [address] H&P Exam - Hospitalist 01/28/25 0710 MR#: [id number] Acct: [id number] Name: FRANKLIN WIGGINS Rep #:[id number] : 1965 59 From: Boone Izquierdo DO PCP: Dr. Jerald Sherwood MD Status:REG E R Location: ED HPI - General General Date of Service: 01/28/25 Chief Complaint: Fever. HPI Narrative FRANKLIN WIGGINS, is a 59 M who presents with fever from the long-term. This ashely 59-year-old male with cirrhosis presents with fever and confusion from the long-term. In emergency room, he was afebrile but [...] stable in the emergencyroom without fluid resuscitation. [facility] Medical History (Updated 01/28/25 @ 07:16 by [...] (Auto) 57.8, Lymph % (Auto) 18.8 L, [place] % (Auto) 16.7 H, Eos % (Auto) [...] Clarity Cloudy, Urine pH 8.0, Ur Specific [place] 1.015, Urine Protein 100 H, Urine Glucose [...] bilateral basilar atelectatic pulmonary changes. Reading Location: [place] [address] Abdomen/Pelvis CT 01/28/25 05:12 IMPRESSION: Cirrhosis, collateral [...] correlate for possible hepatic colopathy. Reading Location: [place] [address] Assessment & Plan Assessment/Plan (1) Hepatic encephalopathy: [...] be continued. Charges/Coding Visit Charges Inpatient E&M: 99315 Init Hosp L3 01/28/25 0726 <Electronically signed by Boone Izquierdo DO> Cosigner Signature (if applicable): CC: Dr. Boone Izquierdo DO; Dr. Jerald Sherwood MD~ Signed [facility] Work Phone: 1([phone]) 212-745206-27-2025 History and physical note Author Boone Izquierdo [facility] Note Date/Time January 28, 2025 7:26 am [facility] Medical Records Department [address] [facility] [place] [address] H&P Exam - Hospitalist 01/28/25 0710 MR#: [id number] Acct: [id number] Name: FRANKLIN WIGGINS Rep #:[id number] : 1965 59 From: Boone Izquierdo DO PCP: Dr. Jerald Sherwood MD Status:REG E R Location: ED HPI - General General Date of Service: 01/28/25 Chief Complaint: Fever. HPI Narrative FRANKLIN WIGGINS, is a 59 M who presents with fever from the long-term. This ashely 59-year-old male with cirrhosis presents with fever and confusion from the long-term. In emergency room, he was afebrile but [...] stable in the emergencyroom without fluid resuscitation. [facility] Medical History (Updated 01/28/25 @ 07:16 by [...] (Auto) 57.8, Lymph % (Auto) 18.8 L, [place] % (Auto) 16.7 H, Eos % (Auto) [...] Clarity Cloudy, Urine pH 8.0, Ur Specific [place] 1.015, Urine Protein 100 H, Urine Glucose [...] bilateral basilar atelectatic pulmonary changes. [facility]/Pelvis CT 01/28/25 05:12 IMPRESSION: Cirrhosis, collateral [...] correlate for possible hepatic colopathy. Reading Location: [facility] Assessment & Plan Assessment/Plan (1) Hepatic encephalopathy: [...] be continued. Charges/Coding Visit Charges Inpatient E&M: 64828 Init Hosp L3 01/28/25 0726 <Electronically signed by Boone Izquierdo DO> Cosigner Signature (if applicable): CC: Dr. Boone Izquierdo DO; Dr. Jerald Sherwood MD~ Signed [facility] Work Phone: [phone]) 658-911906-27-2025 Discharge summary Author Danny Laureano-Lucero [facility] Note Date/Time January 28, 2025 6:59 am [facility] Medical Records Department [address] [place] [address] Emergency Department Summary 01/28/25 MR#: [id number] Acct: [id number] Name: FRANKLIN WIGGINS Rep #:[id number] : 1965 59 From: Danny Sharif ggett DO PCP: Dr. Jerald Sherwood MD Status:REG E R Location: ED HPI History of Present Illness Chief Complaint: Confusion Narrative Narrative: Chief complaint and HPI: Fever and confusion. 59-year-old male with past medical history DM2, ABBY, HTN, HLD, liver 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 presents from [facility] for fever and confusion. History taken by [...] diarrhea, constipation, dysuria. I personally spoke with [facility] staff. The nurse is new to taking [...] intact, sensation intact Psych: Cooperative [facility] Medical History Umbilical hernia Chronic hyponatremia Weakness Diarrhea Sepsis Acidosis, lactic Acute hypotension Acute UTI Chronic hypotension Obesity (BMI 30-39.9) Chronic back pain ISAEBL (acute kidney injury) Hypotension Hepatic encephalopathy Hyperbilirubinemia [...] liver 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 presents from [facility] for fever and confusion. Patient is a poor historian therefore history taken by EMS as well as [facility] nurse. Reported patient developed a fever of 101 ?F this evening prior to arrival. No meds were given. Nurse as well as myself does not know the patient's baseline mental status although nursing staff here that note is the patient states that wax and wanes. Nurse there states that multiple techs felt that the patient wasconfused at [facility] and that he was asking about people [...] (Auto) 57.8 Lymph % (Auto) 18.8 L [place] % (Auto) 16.7 H Eos % (Auto) [...] Color Urine Clarity Urine pH Ur Specific [place] Urine Protein Urine Glucose (UA) Urine Ketones Urine Occult Blood Urine Nitrite Urine Bilirubin Urine Urobilinogen Ur Leukocyte Esterase Urine RBC Urine WBC Ur Squamous Epith Cells Urine Bacteria Urine Mucus 01/28/25 01/28/25 04:33 04:58 WBC RBC Hgb Hct MCV MCH MCHC RDW Std Deviation RDW Coeff of Francis Plt Count MPV Immature Gran % (Auto) Neut % (Auto) Lymph % (Auto) [place] % (Auto) Eos % (Auto) Baso % [...] Clarity Cloudy Urine pH 8.0 Ur Specific [place] 1.015 Urine Protein 100 H Urine Glucose [...] correlate for possible hepatic colopathy. Reading Location: [place] [address] Discharge Plan Triage Chief Complaint: Confusion ED [...] MD [Primary Care Provider] - Print Language: Liberian What to do if you have Problems For any increased pain, shortness of breath, bleeding, nausea or vomiting, chestpain, or any unexpected problems, contact your Primary Care Provider. Call [facility] ([phone]) or report to the closest Emergency Room. Call 911 if necessary. 01/28/25 0659 <Electronically signed by Danny Hutton DO> Cosigner Signature (if applicable): CC: Dr. Jerald Sherwood MD ~ Signed [facility] Work Phone: 1([phone]) 308-213306-27-2025 Radiology Diagnostic study [facility]06-27-2025 Radiology Diagnostic study [facility]06-20-2025 Discharge summary Author Anurag Irene [facility] Note Date/Time January 21, 2025 11:1 2am [facility] Medical Records Department [address] [place] [address] Transfer to [facility] MR#: [id number] Acct: [id number] Name: FRANKLIN WIGGINS Rep #:[id number] : 1965 59 From: Anurag Lucero PCP: YG Pena Status:ADM I N Certification of patient admission REQUIRED AT TIME OF ADMISSION. I CERTIFY THAT POST-HOSPITAL ECF SERVICES ARE REQUIRED TO BE GIVEN ON AN IN-PATIENT BASIS BECAUSE OF THE ABOVE NAMED PATIENT'S NEED FOR PENITENTIARY CARE ON A CONTINUING BASIS FOR THE CONDITION(S) FOR WHICH HE/SHE WAS RECEIVING IN-PATIENT HOSPITAL SERVICES PRIOR TO HIS/HER TRANSFER TO THE [facility]. 01/21/25 1112<Electronically signed by Anurag Irene MD> [...] (Auto) 63.5, Lymph % (Auto) 16.3 L, [place] % (Auto) 11.9 H, Eos % (Auto) [...] Instructions Additional Instructions / Restrictions: Follow-up in [facility] hepatology/GI. Discharge Orders/Prescriptions Prescriptions: New spironolactone [...] Tovar MD; Dr. Jefferson Malave MD ~ [facility] Work Phone: 1(156) 662-621406-20-2025 Discharge summary Author Anurag Irene [facility] Note Date/Time January 21, 2025 1:29 pm [facility] Medical Records Department [address] [place] [address] Discharge Summary 01/21/25 1112 MR#: [id number] Acct: [id number] Name: FRANKLIN WIGGINS Rep #:[id number] : 1965 59 From: Anurag Lucero PCP: YG Pena Status:ADM I N Location: [place] [address] Providers Date of Admission: 01/09/25 Date of Discharge: 01/21/25 Primary Care Physician: YG Pena Consultations 01/09/25 15:46 Consult: Jig And Fixture Maker / Pulmonary Medicine Routine Consulting Provider: Intensivists/Pulmonary [...] (Auto) 63.5, Lymph % (Auto) 16.3 L, [place] % (Auto) 11.9 H, Eos % (Auto) [...] solution (Constulose) 15 ml PO TID PRN facznqweurve21/27/25 L.acidophil,salivari-Bifido bifidum-Strep thermoph 175 mg capsule 1 [...] Instructions Additional Instructions / Restrictions: Follow-up in [facility] hepatology/GI. Discharge Orders/Prescriptions Prescriptions: New spironolactone [...] Home Facility Charges/Coding Visit Charges Inpatient E&M: 91128 Disch Hosp >30min 01/21/25 1117 <Electronically signed [...] Elias; Dr. Anurag Irene MD ~* Signed [facility] Work Phone: 1(297) 581-285906-20-2025 [facility]06-19-2025 Progress note Author Anurag Irene [facility] Note Date/Time January 20, 2025 2:[address] [facility] Medical Records Department [address] [place] [address] Progress Note - Hospitalist 01/20/25 1436 MR#: [id number] Acct: [id number] Name: FRANKLIN WIGGINS Rep #:[id number] : 1965 59 From: Anurag Lucero PCP: YG Pena Status:ADM I N Location: [place] [address] Reason for Visit Reason for Visit: Diagnoses [...] (Auto) 63.5, Lymph % (Auto) 16.3 L, [place] % (Auto) 11.9 H, Eos % (Auto) [...] (Auto) 63.5, Lymph % (Auto) 16.3 L, [place] % (Auto) 11.9 H, Eos % (Auto) [...] 167 H Charges/Coding Visit Charges Inpatient E&M: 38545 Subs Hosp L2 01/20/25 1440 <Electronically signed by Anurag Irene MD> Cosigner Signature (if applicable): CC: ~ Signed [facility] Work Phone: 1(955) 543-185106-18-2025 Progress note Author Anurag Irene [facility] Note Date/Time January 19, 2025 4:[address] [facility] Medical Records Department [address] [place] [address] Progress Note - Hospitalist 01/19/25918 MR#: [id number] Acct: [id number] Name: FRANKLIN WIGGINS Rep #:[id number] : 1965 59 From: Anurag Lucero PCP: YG Pena Status:ADM I N Location: [place] [address] Reason for Visit Reason for Visit: Diagnoses [...] WBCs % 75.6, Fluid Neutrophils 20, Fluid Dgtvllnnmjj75, Fluid Monocytes 3, Fluid Macrophages 46, Fluid [...] (Auto) 67.7, Lymph % (Auto) 13.6 L, [place] % (Auto) 11.0 H, Eos % (Auto) [...] gas. Correlate with surgical history. Reading Location: [id number] Paracentesis Ultrasound 01/18/25 13:08 IMPRESSION: Right lower quadrant marker was applied for paracentesis with drain the fluid volume of 2650 cc. Reading Location: [place] [address] Physical Exam Narrative Seen and examined Discussed [...] WBCs % 75.6, Fluid Neutrophils 20, Fluid Pvzhumnepba59, Fluid Monocytes 3, Fluid Macrophages 46, Fluid [...] (Auto) 67.7, Lymph % (Auto) 13.6 L, [place] % (Auto) 11.0 H, Eos % (Auto) [...] 198 H Charges/Coding Visit Charges Inpatient E&M: 17742 Subs Hosp L2 01/19/25 1646 <Electronically signed by Anurag Irene MD> Cosigner Signature (if applicable): CC: ~ Signed [facility] Work Phone: 1(816) 745-924506-18-2025 Radiology Diagnostic study [facility]06-17-2025 Radiology Diagnostic study [facility]06-17-2025 Progress note Author Anurag Irene [facility] Note Date/Time January 18, 2025 1:14 pm [facility] Medical Records Department [address] [place] [address] Progress Note - Hospitalist 01/18/25 1302 MR#: [id number] Acct: [id number] Name: FRANKLIN WIGGINS Rep #:[id number] : 1965 59 From: Anurag Lucero PCP: YG Pena Status:ADM I N Location: [place] [address] Reason for Visit Reason for Visit: Diagnoses [...] (Auto) 68.1, Lymph % (Auto) 14.0 L, [place] % (Auto) 10.0, Eos % (Auto) 6.1 [...] for epidural analgesia today [facility] for complaint of sepsis due [...] prophylaxis: SCDs Charges/Coding Visit Charges Inpatient E&M: 23165 Subs Hosp L2 01/18/25 1314 <Electronically signed by Anurag Irene MD> Cosigner Signature (if applicable): CC: ~ Signed [facility] Work Phone: [phone]) 841-426306-17-2025 Consult note Author Mohit Santos [facility] Note Date/Time January 18, 2025 12:4 9pm [facility] Medical Records Department [address] [place] [address] Pre-Anesthesia Evaluation 01/18/25 1246 MR#: [id number] Acct: [id number] Name: FRANKLIN WIGGINS Rep #:[id number] : 1965 59 From: Mohit Santos MD PCP: YG Pena Status:ADM I N Y Race: C Location: [place] [address] 2-1 ASA Classification* ASA Classification ASA Classification: [...] injection L1/L2 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 - benefits consulting analyst: 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 - benefits consulting analyst Hx Hospitalization Any Problems With Anesthesia [...] am of surgery tylenol PONV PONV - benefits consulting analyst: PONV - benefits consulting analyst Female HX of Motion Sickness HX of N/V After Surgery Non-Smoker Duration of Surgery greater than 60 minutes Number of Risk Factors PONV Score Height & Weight Height & Weight: Anesthesia: Height & Weight Height 5 ft 9 in 01/17/25 14:51 Weight: 111.3 kg 01/18/25 08:57 Body Mass Index (BMI) 36.2 01/18/25 03:51 Respiratory Assessment Respiratory Assessment - benefits consulting analyst: Respiratory Tract Infection Hx - benefits consulting analyst Hx Respiratory Tract Infection No 01/18/25 09:01 STOP Sleep Apnea STOP Sleep Apnea - benefits consulting analyst: STOP Sleep Apnea - benefits consulting analyst Hx Hypertension No 01/10/25 10:46 Hx [...] Tobacco Use History Tobacco Use History - benefits consulting analyst: Tobacco Use History - benefits consulting analyst Tobacco Use Smoking Status Former smoker 01/10/25 09:20 Hx Tobacco Use Yes 01/09/25 15:31 Years Smoking Packs Smoked per Day Smoking Cessation Date was Yes - quit smoking within 15 01/09/25 15:31 within the last 15 years years Hx Smoking Cessation Date 05/04/24 01/09/25 15:31 Hx Smoking Cessation Counseling Hematologic Medial History Hematologic Hx - benefits consulting analyst: Hematologic Medical Hx - clinical documentation improvement specialist Hx of Blood Transfusion No 01/09/25 15:31 [...] confused, unrespo /Reproduction History /Reproductive History - benefits consulting analyst: /Reproductive Hx- benefits consulting analyst Hx Now No 01/18/25 09:01 Gestational [...] 10 Mg Tablet PO 10 mg QHS [facility] Administration Ferrous Sulfate 325 mg 01/10/25 12:00 01/18/25 11:33 Ferrous Sulfate 325 Mg Tablet PO Not Given Q48@1200 KRYSTIN Folic Acid 1 mg 01/10/25 08:00 01/18/25 11:31 Folic Acid 1 Mg Tablet PO Not Given BREAKFAST KRYSTIN Sodium Chloride 250 mls @ 15 mls/hr 01/09/25 15:34 IV .[id number] PRN Saline Flush Sodium Chloride 250 mls @ 15 mls/hr 01/09/25 15:34 IV .[id number] PRN Additional IVPB Infusion Sodium Chloride 1,000 mls @ 15 mls/hr 01/18/25 12:45 IV .Q48H [facility] Insulin Glargine 20 unit 01/09/25 22:00 01/17/25 21:05 Insulin Glargine-Yfgn 100 Unit/Ml Pen SC 20 unit QHS [facility] Administration Insulin Glargine 20 unit 01/10/25 10:00 01/18/25 11:31 Insulin Glargine-Yfgn 100 Unit/Ml Pen SC Not Given DAILY [facility] Insulin Human Lispro 0 unit 01/09/25 16:00 01/18/25 11:33 Insulin Lispro 100 Unit/Ml Insuln.Pen SC [facility] Protocol Lactulose 10 gm 01/09/25 15:46 01/12/25 14:34 Lactulose 20 Gm/30 Ml Udc PO 10 gm TID PRN Administration constipation Magnesium Chloride 128 mg 01/10/25 10:00 01/18/25 11:31 Magnesium Chloride 64 Mg Delay Rel.Tablet PO Not Given DAILY [facility] Midodrine 10 mg 01/09/25 17:00 01/18/25 12:07 Midodrine Hcl 5 Mg Tablet PO 10 mg TIDCM [facility] Administration Morphine Sulfate 1 mg 01/11/25 13:23 [...] MD Cosigner Signature: Date CC: ~ Signed [facility] Work Phone: [phone] Consult note Author Buster Carmichael [facility] Note Date/Time January 17, 2025 4:[address] [facility] Medical Records Department [facility] [place] [address] Consultation 01/17/25 1522 MR#: [id number] Acct: [id number] Name: FRANKLIN WIGGINS Rep #:[id number] : 1965 59 From: Buster brewster MD PCP: Josy Elias PRINCIPAL EXAMINER-C Status:ADM I N Location: [place] [address] Assessment & Plan Assessment/Plan (1) Spinal stenosis, [...] be 8- 10/10 in severity when moving. [facility] Medical History (Updated 01/17/25 @ 16:52 by [...] (Auto) 67.2, Lymph % (Auto) 12.9 L, [place] % (Auto) 11.5 H, Eos % (Auto) 6.8 H, Baso % (Auto) 0.5, Absolute Neuts (auto) 5.7, Absolute Lymphs (auto) 1.09, Nucleated RBC % 0 01/17/25 06:28: POC Glucose 173 H 01/17/25 11:26: POC Glucose 141 H 01/17/25 1657 <Electronically signed by Buster Carmichael MD> Cosigner Signature (if applicable): CC: YG Elias~ Signed [facility] Work Phone: [phone] 987-679406-16-2025 Progress note Author Anurag Irene [facility] Note Date/Time January 17, 2025 2:32 pm [facility] Medical Records Department [address] [place] [address] Progress Note - Hospitalist 01/17/25 1420 MR#: [id number] Acct: [id number] Name: FRANKLIN WIGGINS Rep #:[id number] : 1965 59 From: Anurag Lucero PCP: YG Pena Status:ADM I N Location: [place] [address] Reason for Visit Reason for Visit: Diagnoses [...] (Auto) 67.2, Lymph % (Auto) 12.9 L, [place] % (Auto) 11.5 H, Eos % (Auto) [...] prophylaxis: SCDs Charges/Coding Visit Charges Inpatient E&M: 43194 Subs Hosp L2 01/17/25 1432 <Electronically signed by Anurag Irene MD> Cosigner Signature (if applicable): CC: ~ Signed [facility] Work Phone: [phone]) 166-770906-16-2025 [facility]06-15-2025 Progress note Author Cielo Tovar [facility] Note Date/Time January 16, 2025 3:37 pm [facility] Medical Records Department [address] [address] Progress Note 01/16/25 1236 MR#: [id number] Acct: [id number] Name: FRANKLIN WIGGINS Rep #:[id number] : 1965 59 From: Cielo Tovar MD PCP: BRITTANY PenaC Status:ADM I N Location: [place] [address] Subjective Subjective Patient seen and examined. He [...] (Auto) 64.9, Lymph % (Auto) 14.6 L, [place] % (Auto) 12.7 H, Eos % (Auto) [...] Catheter Urine Culture - Final Yeast, not Mray albicans Physical Exam Const alert, oriented x3 [...] at home. Charges/Coding Visit Charges Inpatient E&M: 84843 Subs Hosp L2 01/16/25 4143 <Electronically signed by Cielo Tovar MD> Cielo Tovar MD Cosigner Signature (if applicable): CC: ~ Signed [facility] Work Phone: [phone] 180-183106-14-2025 Consult note Author Buster Hahn [facility] Note Date/Time January 15, 2025 6:46 pm [facility] Medical Records Department [address] [place] [address] Pharmacokinetic/Renal -Consult 01/15/25 1846 MR#: [id number] Acct: [id number] Name: FRANKLIN WGIGINS Rep #:[id number] : 1965 59 From: Buster Lopes [facility] PCP: YG Pena Status:ADM I N Y Location: [place] [address] Consult Antibiotic Management Pharmacy has been consulted [...] Vancomycin (random level 01/16/25 at 0600) 01/15/25 2386 <Electronically signed by Buster Nieves RPh> Date _ Buster Guillory [place] [facility] Cosigner Signature (if applicable): Date CC: ~ Signed [facility] Work Phone: [phone] 237-731706-14-2025 Progress note Author Cielo Tovar [facility] Note Date/Time January 15, 2025 6:29 pm [facility] Medical Records Department [address] [place] [address] Progress Note 01/15/25 1321 MR#: [id number] Acct: [id number] Name: FRANKLIN WIGGINS Rep #:[id number] : 1965 59 From: Cielo Tovar MD PCP: YG Pena Status:ADM I N Location: [place] [address] Subjective Subjective Patient seen and examined. He [...] (Auto) 65.6, Lymph % (Auto) 13.2 L, [place] % (Auto) 13.6 H, Eos % (Auto) [...] at multiple levels, as described. Reading Location: [place] [address] Physical Exam Const alert, oriented x3 and [...] at home. Charges/Coding Visit Charges Inpatient E&M: 95809 Subs Hosp L2 01/15/25 1486 <Electronically signed by Cielo Tovar MD> Cielo Tovar MD Cosigner Signature (if applicable): CC: ~ Signed [facility] Work Phone: [phone] 678-354106-13-2025 Consult note Author Andreia Carvalho [facility] Note Date/Time January 14, 2025 8:04 pm [facility] Medical Records Department [address] [place] [address] Pharmacokinetic/Renal -Consult 01/14/252002 MR#: [id number] Acct: [id number] Name: FRANKLIN WIGGINS Rep #:[id number] : 1965 59 From: Andreia Carvalho PCP: YG Pena Status:ADM I N Y Location: [place] [address] Consult Antibiotic Management Pharmacy has been consulted [...] Signature (if applicable): Date CC: ~ Signed [facility] Work Phone: [phone]) 481-782606-13-2025 Progress note Author Cielo Tovar [facility] Note Date/Time January 14, 2025 5:[address] [facility] Medical Records Department [address] [place] [address] Progress Note 01/14/25 1706 MR#: [id number] Acct: [id number] Name: FRANKLIN WIGGINS Rep #:[id number] : 1965 59 From: Cielo Tovar MD PCP: Josy Elias NP-C Status:ADM I N Location: [place] [address] Subjective Subjective Patient seen and examined. He [...] (Auto) 65.3, Lymph % (Auto) 13.5 L, [place] % (Auto) 14.3 H, Eos % (Auto) [...] at multiple levels, as described. Reading Location: [place] [address] Thoracic Spine MRI 01/13/25 10:30 IMPRESSION: Abnormal marrow signal at T12 and L1. No acute compression deformity identified. Can not exclude metastatic involvement of these 2 vertebral bodies. Degenerative changes in the remainder of the lumbar spine. There is mild spinal stenosis at the level of T10-T11 and T11-T12. The patient could not tolerate postcontrast imaging. There is no cord compression Reading Location: [facility] Chest CT 01/14/25 08:06 IMPRESSION: 1. Partially visualized severe degenerative changes of T11-T12 with areas of erosive changes and lytic lesions. Metastasis can not be excluded. 2. Cirrhosis and ascites. 3. Mild lung emphysema. No suspicious nodules or focal consolidation. Reading Location: [facility] Physical Exam Const alert, oriented x3 [...] medically stable. Charges/Coding Visit Charges Inpatient E&M: 32492 Subs Hosp L2 01/14/25 4995 <Electronically signed by Cielo Tovar MD> Cielo Tovar MD Cosigner Signature (if applicable): CC: ~ Signed [facility] Work Phone: 1([phone]) 810-194106-13-2025 Radiology Diagnostic study [facility]06-12-2025 Progress note Author [facility] Note Date/Time January 13, 2025 6:[address] [facility] Medical Records Department [address] [place] [address] Progress Note 01/13/25 1517 MR#: [id number] Acct: [id number] Name: FRANKLIN WIGGINS Rep #:[id number] : 1965 59 From: Cielo Tovar MD PCP: YG Pena Status:ADM I N Location: [place] [address] Subjective Subjective Patient seen and examined. He [...] (Auto) 65.6, Lymph % (Auto) 14.4 L, [place] % (Auto) 13.7 H, Eos % (Auto) [...] medically stable. Charges/Coding Visit Charges Inpatient E&M: 42806 Subs Hosp L2 01/13/258 <Electronically signed by Cielo Tovar MD> Cielo Tovar MD Cosigner Signature (if applicable): CC: ~ Signed [facility] Work Phone: [phone] Consult note Author Francheska Montoya [facility] Note Date/Time January 13, 2025 9:36 am [facility] Medical Records Department [address] [place] [address] Pharmacokinetic/Renal -Consult 01/13/25 0934 MR#: [id number] Acct: [id number] Name: FRANKLIN WIGGINS #:[id number] : 1965 59 From: Francheska Mcfarlane PCP: YG Pena Status:ADM I N Y Location: [place] [address] Consult Antibiotic Management Pharmacy has been consulted [...] Signature (if applicable): Date CC: ~ Signed [facility] Work Phone: [phone] 525-944606-11-2025 Progress note Author Cielo [facility] Note Date/Time January 12, 2025 4:51 pm [facility] Medical Records Department [address] [place] [address] Progress Note 01/12/25 1646 MR#: [id number] Acct: [id number] Name: FRANKLIN WIGGINS Rep #:[id number] : 1965 59 From: Cielo Tovar MD PCP: YG Pena Status:ADM I N Location: [place] [address] Subjective Subjective Patient seen and examined. He [...] (Auto) 68.2, Lymph % (Auto) 11.6 L, [place] % (Auto) 12.1 H, Eos % (Auto) [...] his facility. Charges/Coding Visit Charges Inpatient E&M: 86068 Subs Hosp L2 01/12/251 <Electronically signed by Cielo Tovar MD> Cielo Tovar MD Cosigner Signature (if applicable): CC: ~ Signed [facility] Work Phone: [phone] Consult note Author Dilcia Vanessa [facility] Note Date/Time January 11, 2025 10:4 8pm [facility] Medical Records Department [address] [place] [address] Pharmacokinetic/Renal -Consult 01/11/251942 MR#: [id number] Acct: [id number] Name: FRANKLIN WIGGINS Rep #:[id number] : 1965 59 From: Dilcia Vanessa PCP: YG Pena Status:ADM I N Y Location: [place] [address] Consult Antibiotic Management Pharmacy has been consulted [...] <Electronically signed by Dilcia montalvo> Date _ Dlicia Vanessa 01/11/25 9959 <Electronically signed by Yaritza Holland> Cosigner Signature (if applicable): Date Yaritza Leo DO CC: ~ Signed [facility] Work Phone: [phone] 268-543706-10-2025 Progress note Author Cielo Tovar [facility] Note Date/Time January 11, 2025 5:51 pm [facility] Medical Records Department [address] [place] [address] Progress Note 01/11/25 1510 MR#: [id number] Acct: [id number] Name: FRANKLIN WIGGINS Rep #:[id number] : 1965 59 From: Cielo Tovar MD PCP: YG Pena Status:ADM I N Location: [place] [address] Subjective Subjective Patient seen and examined. He [...] % (Auto) Cancelled, Lymph % (Auto) Cancelled, [place] % (Auto) Cancelled, Eos % (Auto) Cancelled, [...] Drop Cells Cancelled, Ovalocytes Cancelled, Stomatocytes Cancelled, Castellon-Staves Bodies Cancelled, Paloma Cells Cancelled, Bite Cells [...] (Auto) 69.6, Lymph % (Auto) 12.6 L, [place] % (Auto) 11.8 H, Eos % (Auto) [...] of anemia Charges/Coding Visit Charges Inpatient E&M: 17496 Subs Hosp L2 01/11/25 1751 <Electronically signed by Cielo Tovar MD> Cielo Tovar MD Cosigner Signature (if applicable): CC: ~ Signed [facility] Work Phone: [phone] 508-568906-10-2025 Consult note Author Jefferson Malave [facility] Note Date/Time January 11, 2025 4:41 pm [facility] Medical Records Department [address] [place] [address] Consultation - Surgical 01/11/25 1634 MR#: [id number] Acct: [id number] Name: FRANKLIN WIGGINS Rep #:[id number] : 1965 59 From: Jefferson Malave MD PCP: YG Pena Status:ADM I N Location: [place] [address] Assessment & Plan Assessment/Plan (1) Umbilical hernia: [...] findings on CT consistent with portal hypertension. [facility] Medical History (Updated 01/11/25 @ 16:41 by [...] % (Auto) Cancelled, Lymph % (Auto) Cancelled, [place] % (Auto) Cancelled, Eos % (Auto) Cancelled, [...] Drop Cells Cancelled, Ovalocytes Cancelled, Stomatocytes Cancelled, Castellon-Staves Bodies Cancelled, Paloma Cells Cancelled, Bite Cells [...] (Auto) 69.6, Lymph % (Auto) 12.6 L, [place] % (Auto) 11.8 H, Eos % (Auto) [...] 48 hours. Charges/Coding Visit Charges Inpatient E&M: 39794 Init Hosp L3 01/11/25 1641 <Electronically signed by Jefferson Malave MD> Cosigner Signature (if applicable): CC: YG Elias~ Signed [facility] Work Phone: [phone] 171-772806-10-2025 Progress note Author Bola Meraz [facility] Note Date/Time January 11, 2025 9:07 am [facility] Medical Records Department [address] [place] [address] Progress Note - Jig And Fixture Maker 01/11/25 0722 MR#: [id number] Acct: [id number] Name: FRANKLIN WIGGINS Rep #:[id number] : [...] scheduled midodrine. This note was generated with [employer] dictation software. It may contain incorrectwords, spelling, [...] % (Auto) Cancelled, Lymph % (Auto) Cancelled, [place] % (Auto) Cancelled, Eos % (Auto) Cancelled, [...] Drop Cells Cancelled, Ovalocytes Cancelled, Stomatocytes Cancelled, Castellon-Staves Bodies Cancelled, Paloma Cells Cancelled, Bite Cells [...] (Auto) 69.6, Lymph % (Auto) 12.6 L, [place] % (Auto) 11.8 H, Eos % (Auto) [...] hypertension. No liver masses identified. Reading Location: [facility] Physical Exam Const alert, oriented x3 and [...] flat affect Charges/Coding Visit Charges Inpatient E&M: 38804 Subs Hosp L2 01/11/25 0907 <Electronically signed by Bola Meraz DO> Cosigner Signature (if applicable): CC: ~ Signed [facility] Work Phone: [phone] 120-269606-10-2025 Consult note Author Boone Garcia [facility] Note Date/Time January 11, 2025 2:14 am [facility] Medical Records Department [address] [place] [address] Pharmacokinetic/Renal -Consult 01/11/25 0211 MR#: [id number] Acct: [id number] Name: FRANKLIN WIGGINS Rep #:[id number] : [...] Signature (if applicable): Date CC: ~ Signed [facility] Work Phone: [phone] 456-227806-09-2025 Progress note Author Cieloestuardo Tovar [facility] Note Date/Time January 10, 2025 6:23p [facility] Medical Records Department [address] [facility] [place] [address] Progress Note 01/10/251815 MR#: [id number] Acct: [id number] Name: FRANKLIN WIGGINS Rep #:[id number] : [...] % (Auto) Cancelled, Lymph % (Auto) Cancelled, [place] % (Auto) Cancelled, Eos % (Auto) Cancelled, [...] Drop Cells Cancelled, Ovalocytes Cancelled, Stomatocytes Cancelled, Castellon-Staves Bodies Cancelled, [place] Cells Cancelled, Bite Cells Cancelled, Crenated Cell [...] 76.1 H, Lymph % (Auto) 8.8 L, [place] % (Auto) 8.2, Eos % (Auto) 5.9 [...] prophylaxis: Heparin Charges/Coding Visit Charges Inpatient E&M: 83459 Subs Hosp L3 01/10/25 8680 <Electronically signed by Cielo Tovar MD> Cielo Tovar MD Cosigner Signature (if applicable): CC: ~ Signed [facility] Work Phone: [phone] Progress note Author Bola Meraz [facility] [facility] Note Date/Time January 10, 2025 8:52a m [facility] Medical Records Department [address] [place] [address] Progress Note - Jig And Fixture Maker 01/10/25 0700 MR#: [id number] Acct: [id number] Name: FRANKLIN WIGGINS Rep #:[id number] : [...] scheduled midodrine. This note was generated with [employer] dictation software. It may contain incorrectwords, spelling, [...] 80.6 H, Lymph % (Auto) 7.2 L, [place] % (Auto) 6.7, Eos % (Auto) 4.2, [...] % (Auto) Cancelled, Lymph % (Auto) Cancelled, [place] % (Auto) Cancelled, Eos % (Auto) Cancelled, [...] Drop Cells Cancelled, Ovalocytes Cancelled, Stomatocytes Cancelled, Castellon-Staves Bodies Cancelled, [place] Cells Cancelled, Bite Cells Cancelled, Crenated Cell [...] 76.1 H, Lymph % (Auto) 8.8 L, [place] % (Auto) 8.2, Eos % (Auto) 5.9 [...] hypertension. No liver masses identified. Reading [facility] Physical Exam Const alert, oriented x3 [...] flat affect Charges/Coding Visit Charges Inpatient E&M: 35709 Subs Hosp L3 01/10/25 0852 <Electronically signed by Bola Meraz DO> Cosigner Signature (if applicable): CC: ~ Signed [facility] Work Phone: 1([phone]) 137-458806-08-2025 Consult note Author Lupillo Robbins [facility] Note Date/Time January 09, 2025 8:03p m [facility] Medical Records Department [address] [place] [address] Consultation - Jig And Fixture Maker 01/09/25 1836 MR#: [id number] Acct: [id number] Name: FRANKLIN WIGGINS Rep #:[id number] : [...] mls @ 15 mls/hr 01/09/25 15:34 IV .[id number] PRN Saline Flush Sodium Chloride 250 mls @ 15 mls/hr 01/09/25 15:34 IV .[id number] PRN Additional IVPB Infusion Norepinephrine Bitartrate 8 mg 250 mls @ 9.375 mls/hr 01/09/25 15:46 01/09/2515:56 / Sodium Chloride CONT INF Not Given .[id number] [facility] Protocol 5 MCG/MIN Vancomycin IV-PHARMACY TO DOSE 500 mls @ 250 mls/hr 01/09/25 15:46 1 each/ Sodium Chloride IV PRN PRN Rx to Dose Protocol Meropenem 1 gm/ Sodium 120 mls @ 33 mls/hr 01/09/25 22:00 Chloride IV Q12 KRYSTIN Vancomycin HCl 1,000 mg in 200 mls @ 200 mls/hr 01/10/25 02:00 Vancomycin IV Q12H [facility] Insulin Glargine 20 unit 01/09/25 22:00 Insulin Glargine-Yfgn 100 Unit/Ml Pen SC QHS [facility] Insulin Glargine 20 unit 01/10/25 10:00 Insulin Glargine-Yfgn 100 Unit/Ml Pen SC DAILY [facility] Insulin Human Lispro 0 unit 01/09/25 16:00 01/09/25 16:27 Insulin Lispro 100 Unit/Ml Insuln.Pen SC Not Given ACHS [facility] Protocol Lactulose 10 gm 01/09/25 15:46 Lactulose 20 Gm/30 Ml Udc PO TID PRN constipation Magnesium Chloride 128 mg 01/10/25 10:00 Magnesium Chloride 64 Mg Delay Rel.Tablet PO DAILY [facility] Midodrine 10 mg 01/09/25 17:00 01/09/25 17:10 Midodrine Hcl 5 Mg Tablet PO 10 mg TIDCM [facility] Administration Ondansetron HCl 4 mg 01/09/25 15:46 Ondansetron 4 Mg/2 Ml Vial IV Q8H PRN PRN NAUSEA/VOMITING Pantoprazole Sodium 20 mg 01/10/25 10:00 Pantoprazole Sodium 20 Mg Tablet PO DAILY [facility] Potassium Phos/Sodium Phos 1 packet 01/09/25 22:00 Na Biphos/Potassium Phosphate Packet PO BID [facility] Rifaximin 550 mg 01/09/25 22:00 Rifaximin 550 Mg Tablet PO BID [facility] Sodium Bicarbonate 650 mg 01/09/25 22:00 Sodium Bicarbonate 650 Mg Tablet PO BID [facility] Sodium Chloride 10 - 40 ml 01/09/25 15:34 0.9% Saline Lock 10 Ml Syringe IV UD PRN SALINE FLUSH Thiamine HCl 100 mg 01/10/25 10:00 Thiamine Hydrochloride 100 Mg Tablet PO DAILY [facility] Vancomycin Protocol 1 lab 01/11/25 00:30 Vancomycin Trough/Random Due MC 01/11/25 02:30 DAILY [facility] Zinc Sulfate 50 mg 01/10/25 10:00 Zinc Sulfate 50 Mg Zinc (220 Mg) Oral Capsule PO DAILY [facility] Lab / Micro Data 01/09/25 10:40 01/09/25 [...] 80.6 H, Lymph % (Auto) 7.2 L, [place] % (Auto) 6.7, Eos % (Auto) 4.2, [...] hypertension. No liver masses identified. Reading Location: [facility] Assessment and Plan . Assessment and plan: [...] Signature (if applicable): CC: YG Elias~ Signed [facility] Work Phone: [phone]) [phone] Consult note Author Peter Carvajal [facility] Note Date/Time January 09, 2025 5:42p [facility] Medical Records Department [address] [place] [address] Pharmacokinetic/Renal -Consult 01/09/25 1602 MR#: [id number] Acct: [id number] Name: FRANKLIN WIGGINS Rep #:[id number] : [...] Peter gusman> Date _ Peter Carvajal 01/09/25 1742 <Electronically signed by Yaritza Lucero O> Cosigner Signature (if applicable): Date Yaritza Leo DO CC: ~ Signed [facility] Work Phone: 1([phone]) 573-292606-08-2025 History and physical note Author Yaritza Leo [facility] Note Date/Time January 09, 2025 5:41p m [facility] Medical Records Department [address] [place] [address] H&P Exam - Hospitalist 01/09/25 0540 MR#: [id number] Acct: [id number] Name: FRANKLIN WIGGINS Rep #:[id number] : 1965 59 From: Yaritza Leo DO PCP: Josy Elias PRINCIPAL EXAMINERKayleigh Status:ADM I N Location: ICU CVICU20 1 HPI - General General Date of Admission: 01/09/25 Date of Service: 01/09/25 Chief Complaint: Suprapubic abdominal pain HPI Narrative FRANKLIN WIGGINS, is a 59 M who presented to the emergency department [facility] on 01/09/2025 due to back pain and [...] medical history and currently resides at an [facility]. He denies any fever or chills. He [...] a repeat of 89/59 and pulse ox hip577% on room air. CBC showed a leukocytosis [...] he was treated with 30 cc/kg bolus. [facility] Medical History (Updated 01/09/25 @ 17:18 by [...] 80.6 H, Lymph % (Auto) 7.2 L, [place] % (Auto) 6.7, Eos % (Auto) 4.2, [...] hypertension. No liver masses identified. Reading [facility] Assessment & Plan Assessment/Plan (1) Sepsis: (2) [...] currently 102/60) Charges/Coding Visit Charges Inpatient E&M: 16424 Init Hosp L3 01/09/25 1741 <Electronically signed by Yaritza Leo DO> Cosigner Signature (if applicable): CC: PRINCIPAL EXAMINER-C Josy Elias; Dr. Yaritza Leo DO~ Signed [facility] Work Phone: [phone]) [phone] Discharge summary Author [facility] Note Date/Time January 09, 2025 4:26p m [facility] Medical Records Department [address] [place] [address] Emergency Department Summary 01/09/25 MR#: [id number] Acct: [id number] Name: FRANKLIN WIGGINS Rep #:[id number] : [...] denies urinary symptoms. Patient is from a long-term and normally ambulates with a walker. Patient has history of cirrhosis and history of diabetes as well as high cholesterol. Patient has had prior paracentesis. Currently rates his pain about a 5 out of 10. He does not want thing for pain currently. [facility] Medical History Weakness Diarrhea Sepsis Acidosis, lactic [...] mg tablet 40 mg PO DAILY diuretic /2 11/28/24 History magnesium oxide 400 mg (241.3 mg [...] 80.6 H Lymph % (Auto) 7.2 L [place] % (Auto) 6.7 Eos % (Auto) 4.2 [...] Clarity Turbid Urine pH 6.0 Ur Specific [place] 1.015 Urine Protein 500 H Urine Glucose [...] hypertension. No liver masses identified. 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 Call [facility] ([phone]) or report to the closest Emergency Room. Call 911 if necessary. 01/09/25 1626 <Electronically signed by Breann Mendez DO> Cosigner Signature (if applicable): CC: YG Elias ~ Signed [facility] Work Phone: [phone]) 704-946706-08-2025 Radiology Diagnostic study [facility]06-04-2025 Consult note Author Kourtney Reece [facility] Note Date/Time January 05, 2025 5:01p m [facility] Medical Records Department [address] [place] [address] Counseling Note - Pharmacy 01/05/25 1447 MR#: [id number] Acct: [id number] Name: FRANKLIN WIGGINS Rep #:[id number] : 1965 59 From: Kourtney Reece PCP: YG Pena Status:ADM I N Y Location: [place] [address] Pharm[place] Med Reconciliation Pharmacy Service has performed discharge [...] solution (Constulose) 15 ml PO TID PRN hsvohdvylxoc80/27/25 L.acidophil,salivari-Bifido bifidum-Strep thermoph 175 mg capsule 1 [...] Protocol subcut ACHS #0 mL 01/05/25 01/05/25 6837 <Electronically signed by Kourtney Reece> Date _ Kourtney Ferguson Signature (if applicable): Date CC: ~ Signed [facility] Work Phone: [phone] 194-679906-04-2025 Discharge summary Author Hill Acuña [facility] Note Date/Time January 05, 2025 2:07p [facility] Medical Records Department [address] [place] [address] Discharge Summary 01/05/25 1404 MR#: [id number] Acct: [id number] Name: FRANKLIN WIGGINS Rep #:[id number] : 1965 59 From: Hill Acuña MD PCP: YG Pena Status:ADM I N Location: [place] [address] Providers Date of Admission: 01/02/25 Date of [...] Secondary to multiple medical comorbidities. Transfer to jail facility had been recommended to patient during previous hospitalization he did decline. I had a discussion with patient he is amenable to entertaining the idea of going to jail facility. Subsequently requested for PT OT eval and social welfare administrator to assist with discharge planning ? 01/03/2025; plan is to discuss with case management regarding disposition ? 01/05/2025; awaiting insurance pre-CERT prior to transfer to jail facility ? Patient was discharged to jail facility once insurance. 2. Severe hypokalemia ? [...] solution (Constulose) 15 ml PO TID PRN lsrvrxxwixly56/27/25 L.acidophil,salivari-Bifido bifidum-Strep thermoph 175 mg capsule 1 [...] (Auto) 69.1, Lymph % (Auto) 13.4 L, [place] % (Auto) 11.6 H, Eos % (Auto) [...] Home Facility Charges/Coding Visit Charges Inpatient E&M: 17803 Disch Hosp >30min 01/05/25 1407 <Electronically signed by Hill Acuña MD> Cosigner Signature (if applicable): CC: YG Elias; Dr. Hill Acuña MD~ Signed [facility] Work Phone: [phone] Discharge summary Author Hill Acuña [facility] Note Date/Time January 05, 2025 2:04p [facility] Medical Records Department [address] [place] [address] Transfer to [facility] MR#: [id number] Acct: [id number] Name: FRANKLIN WIGGINS Rep #:[id number] : 1965 59 From: Hill Acuña MD PCP: YG Pena Status:ADM I N Certification of patient admission REQUIRED AT TIME OF ADMISSION. I CERTIFY THAT POST-HOSPITAL ECF SERVICES ARE REQUIRED TO BE GIVEN ON AN IN-PATIENT BASIS BECAUSE OF THE ABOVE NAMED PATIENT'S NEED FOR PENITENTIARY CARE ON A CONTINUING BASIS FOR THE CONDITION(S) FOR WHICH HE/SHE WAS RECEIVING IN-PATIENT HOSPITAL SERVICES PRIOR TO HIS/HER TRANSFER TO THE [facility]. 01/05/25 1404<Electronically signed by Hill Acuña MD> [...] Secondary to multiple medical comorbidities. Transfer to jail facility had been recommended to patient during previous hospitalization he did decline. I had a discussion with patient he is amenable to entertaining the idea of going to jail facility. Subsequently requested for PT OT eval and social welfare administrator to assist with discharge planning ? 01/03/2025; plan is to discuss with case management regarding disposition ? 01/05/2025; awaiting insurance pre-CERT prior to transfer to jail facility 2. Severe hypokalemia ? Patient potassium [...] YG Elias; Dr. Buster Fuchs MD ~ [facility] Work Phone: [phone]) 223-989806-04-2025 Progress note Author [facility] Note Date/Time January 05, 2025 11:01 am [facility] Medical Records Department [address] [place] [address] Progress Note - Hospitalist 01/05/25 0737 MR#: [id number] Acct: [id number] Name: FRANKLIN WIGGINS Rep #:[id number] : 1965 59 From: Hill Acuña MD PCP: YG Pena Status:ADM I N Location: [place] [address] Reason for Visit Reason for Visit: Diagnoses Acute kidney failure, unspecified (01/02/25) Unspecified fall, initial encounter (01/02/25) Subjective Subjective Patient seen blood glucose control not optimal further adjustment made to patient insulin regimen. Patient awaiting insurance precertification prior to transfer to [facility] Objective Data Objective Data Vital Signs: [...] (Auto) 69.1, Lymph % (Auto) 13.4 L, [place] % (Auto) 11.6 H, Eos % (Auto) [...] Secondary to multiple medical comorbidities. Transfer to jail facility had been recommended to patient during previous hospitalization he did decline. I had a discussion with patient he is amenable to entertaining the idea of going to jail facility. Subsequently requested for PT OT eval and social welfare administrator to assist with discharge planning ? 01/03/2025; plan is to discuss with case management regarding disposition ? 01/05/2025; awaiting insurance pre-CERT prior to transfer to jail facility 2. Severe hypokalemia ? Patient potassium [...] SCDs for Charges/Coding Visit Charges Inpatient E&M: 93646 Subs Hosp L2 01/05/25 1101 <Electronically signed by Hill Acuña MD> Cosigner Signature (if applicable): CC: ~ Signed [facility] Work Phone: [phone] 215-544706-03-2025 Progress note Author Hill Acuña [facility] Note Date/Time January 04, 2025 10:18 am [facility] Medical Records Department [address] [place] [address] Progress Note - Hospitalist 01/04/25 1014 MR#: [id number] Acct: [id number] Name: FRANKLIN WIGGINS Rep #:[id number] : 1965 59 From: Hill Acuña MD PCP: YG Pena Status:ADM I N Location: [place] [address] Reason for Visit Reason for Visit: Diagnoses [...] Secondary to multiple medical comorbidities. Transfer to jail facility had been recommended to patient during previous hospitalization he did decline. I had a discussion with patient he is amenable to entertaining the idea of going to jail facility. Subsequently requested for PT OT eval and social welfare administrator to assist with discharge planning ? 01/03/2025; [...] SCDs for Charges/Coding Visit Charges Inpatient E&M: 89162 Subs Hosp L2 01/04/25 1018 <Electronically signed by Hill Acuña MD> Cosigner Signature (if applicable): CC: ~ Signed [facility] Work Phone: 1([phone]) 477-233206-02-2025 Progress note Author [facility] Note Date/Time January 03, 2025 9:52a [facility] Medical Records Department [address] [place] [address] Progress Note - Hospitalist 01/03/25 0839 MR#: [id number] Acct: [id number] Name: FRANKLIN WIGGINS Rep #:[id number] : 1965 59 From: Hill Acuña MD PCP: YG Pena Status:ADM I N Location: [place] [address] Reason for Visit Reason for Visit: Diagnoses [...] and Output for Last 24 Hours 01/01/25 01/02/2525 23:59 23:59 23:59 Intake Total 3137.5 / [...] (Auto) 67.5, Lymph % (Auto) 13.9 L, [place] % (Auto) 11.5 H, Eos % (Auto) [...] Secondary to multiple medical comorbidities. Transfer to jail facility had been recommended to patient during previous hospitalization he did decline. I had a discussion with patient he is amenable to entertaining the idea of going to jail facility. Subsequently requested for PT OT eval and social welfare administrator to assist with discharge planning ? 01/03/2025; [...] SCDs for Charges/Coding Visit Charges Inpatient E&M: 99940 Subs Hosp L2 01/03/25 5939 <Electronically signed by Hill Acuña MD> Cosigner Signature (if applicable): CC: ~ Signed [facility] Work Phone: [phone]) 254-870206-01-2025 Progress note Author Hill Acuña [facility] Note Date/Time January 02, 2025 9:58a m [facility] Medical Records Department [address] [place] [address] Progress Note - Hospitalist 01/02/25 0736 MR#: [id number] Acct: [id number] Name: FRANKLIN WIGGINS Rep #:[id number] : 1965 59 From: Hill Acuña MD PCP: Josy Elias PRINCIPAL EXAMINER-C Status:ADM I N Location: [place] [address] Reason for Visit Reason for Visit: Diagnoses Acute kidney failure, unspecified (01/02/25) Unspecified fall, initial encounter (01/02/25) Subjective Subjective Patient is a 59-year-old gentleman with recent multiple hospitalization presented to the emergency department with progressive generalized weakness and vomiting. This was apparently his third visit to the ED within a week. Patienthad been encouraged to be discharged to a jail facility he however declined. Objective Data Objective [...] (Auto) 68.0, Lymph % (Auto) 12.2 L, [place] % (Auto) 11.9 H, Eos % (Auto) [...] insufficiency fracture again noted, unchanged. Reading Location: [id number] Brain CT 01/02/25 03:55 IMPRESSION: No intracranial hemorrhage, mass effect or calvarial fracture. Moderate volume loss, atrophy again noted. Mild left maxillary sinus disease appears mildly decreased from the prior study. Reading Location: [facility] Cervical Spine CT 01/02/25 03:55 IMPRESSION: No fracture or malalignment. Multilevel spondylosis/discogenic change greatest at C5-6 Reading Location: [facility] Physical Exam Narrative GENERAL: cooperative HEENT: Atraumatic; [...] Secondary to multiple medical comorbidities. Transfer to jail facility had been recommended to patient during previous hospitalization he did decline. I had a discussion with patient he is amenable to entertaining the idea of going to jail facility. Subsequently requested for PT OT eval and social welfare administrator to assist with discharge planning 2. Severe [...] documentation, 38Minutes Charges/Coding Visit Charges Inpatient E&M: 01710 PROLNG IP/OBS E/M EA 15 MIN Multi Select Codes Visit Charges Visit Charges: 09106 PROLNG IP/OBS E/M EA 15 MIN 01/02/25 0958 <Electronically signed by Hill Acuña MD> Cosigner Signature (if applicable): CC: ~ Signed [facility] Work Phone: [phone]) [phone] History and physical note Author Buster Fuchs [facility] Note Date/Time January 02, 2025 6:44a m 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 Was not considered to be a liver transplant candidate and was placed on anticoagulation. He has had a couple of readmissions for weakness and debility. [place] to possibly have aUTI given a staghorn [...] Heis receiving potassium infusion in the ER. [facility] Medical History Weakness Diarrhea Sepsis Acidosis, lactic [...] (Auto) 68.0, Lymph % (Auto) 12.2 L, [place] % (Auto) 11.9 H, Eos % (Auto) [...] insufficiency fracture again noted, unchanged. Reading Location: [facility] Brain CT 01/02/25 03:55 IMPRESSION: No intracranial hemorrhage, mass effect or calvarial fracture. Moderate volume loss, atrophy again noted. Mild left maxillary sinus disease appears mildly decreased from the prior study. Reading Location: [facility] Cervical Spine CT 01/02/25 03:55 IMPRESSION: No fracture or malalignment. Multilevel spondylosis/discogenic change greatest at C5-6 Reading Location: [facility] Assessment & Plan Assessment/Plan (1) Fall: (2) [...] once verified Charges/Coding Visit Charges Inpatient E&M: 30531 Init Hosp L2 01/02/25 0644 <Electronically signed by Buster Fuchs MD> Cosigner Signature (if applicable): CC: YG Elias; Dr. Buster Fuchs MD~ Signed [facility] Work Phone: 1([phone]) 254-724606-01-2025 Discharge summary Author Roddy Reeves [facility] Note Date/Time January 02, 2025 6:00a m [facility] Medical Records Department [address] [place] [address] Emergency Department Summary 01/02/25 MR#: [id number] Acct: [id number] Name: FRANKLIN WIGGINS Rep #:[id number] : 1965 59 From: Roddy Reeves DO PCP: BRITTANY PenaC Status:REG E R Location: ED HPI History [...] recently and was sent home. [facility] Medical History Weakness Diarrhea Sepsis Acidosis, lactic [...] Patient following commands that he was at [facility] that wewere in the end of [...] (Auto) 68.0 Lymph % (Auto) 12.2 L [place] % (Auto) 11.9 H Eos % (Auto) [...] Clarity Turbid Urine pH 6.0 Ur Specific [place] 1.015 Urine Protein 100 H Urine Glucose [...] insufficiency fracture again noted, unchanged. Reading Location: [id number] Brain CT 01/02/25 03:55 IMPRESSION: No intracranial hemorrhage, mass effect or calvarial fracture. Moderate volume loss, atrophy again noted. Mild left maxillary sinus disease appears mildly decreased from the prior study. Reading Location: [facility] Cervical Spine CT 01/02/25 03:55 IMPRESSION: No fracture or malalignment. Multilevel spondylosis/discogenic change greatest at C5-6 Reading Location: [facility] Discharge Plan Triage Chief Complaint: Weakness ED [...] NP-C [Primary Care Provider] - Print Language: Liberian Disposition Disposition: Acute Care Hospital [facility] What to do if you have Problems For any increased pain, shortness of breath, bleeding, nausea or vomiting, chestpain, or any unexpected problems, contact your Primary Care Provider. Call [facility] ([phone]) or report to the closest Emergency Room. Call 911 if necessary. 01/02/25 0600 <Electronically signed by Roddy Reeves DO> Cosigner Signature (if applicable): CC: YG Elias ~ Signed [facility] Work Phone: 1(254) 227-245706-01-2025 Radiology Diagnostic study [facility]06-01-2025 Radiology Diagnostic study [facility]06-01-2025 Radiology Diagnostic study [facility] 12-30-2024 Radiology Diagnostic study [facility]05-25-2025 Radiology Diagnostic study [facility]05-14-2025 Radiology Diagnostic study [facility]04-20-2025 Radiology Diagnostic study [facility]04-17-2025 Telephone encounter Note* Telephone Encounter - [...] will be scheduled to follow up with [facility] Security System Technician. JEANNINE asked that Dr. Mosley inform this pt that he can return to our transplant center again and be re-evaluated once he has addressed his prohibitive psychosocial concerns (lack of caregivers, unstable housing, unstable finances, unreliable transportation). Dr. Mosley agreed to do so. [facility] Work Phone: [phone]) [phone] Miscellaneous Notes* Telephone Encounter - Marah Arauz [...] will be scheduled to follow up with [facility] Security System Technician. JEANNINE asked that Dr. Mosley inform this pt that he can return to our transplant center again and be re-evaluated once he has addressed his prohibitive psychosocial concerns (lack of caregivers, unstable housing, unstable finances, unreliable transportation). Dr. Mosley agreed to do so. [facility]25 Telephone encounter Note * Telephone Encounter [...] transportation. . Jeremi Abreu RN, BSN [employer] Work Phone: 1([phone]) 554-697804-17-2025 Miscellaneous Notes* Telephone Encounter - Jeremi Abreu [...] transportation. . Jeremi Abreu RN, BSN [employer] [facility] documented in this encounterDayton [facility]04-17-2025 [facility] Note[facility]20[facility] Note[facility]20[facility]2025 Note [facility]04-15-2025 [facility]2025 [facility]04-15-2025 [facility] 11-15-2024 [facility]-2025 Note[facility]-2025 Note[facility]14-2025 History of Present illness Narrative* Marah [...] 15, 2024 2:35 PM documented in this encounterDay[facility]-14-2025 [facility] History of Present illness Narrative* Virgil Farley DDS - 11/15/2024 1:48 PM EDTSummary: Liver Transplant Dental Bedside Clearance See inpatient note for this encounter on 11/15/2024. Virgil Farley DDS documented in this encounterDayton [facility]04-14-2025 [facility]04-13-2025 Note[facility]04-12-2025 NoteC[facility]04-11-20[facility] History of Present illness Narrative* Lizett [...] mg capsule(s) rifAXIMin 550 mg tab(s) (XIFAXAN) gteoagh-kqemxfcyd-hafxpxf D3 500 mg-5 mcg (200 unit) 1 [...] Guzman, PharmD Transplant Pharmacy Clinical Specialist Pager: [phone] documented in this encounterDayton [facility]04-11-2025 [facility]04-11-2025 [facility]04-11-2025 History of Present illness Narrative* Jeremi Abreu RN - 11/12/2024 2:52 PM EDT The following information has been provided/discussed with the patient/family during Shared MedicalAppointment education class: Informed Consent for Organ Transplant Program Participation version February 20, 2023. SRTR information provided and questions answered. Informed patient to call nursing coordinator with any questions. [facility] information regarding multiple listings for organ transplantation Evaluation process including presentation to selection committee and listing criteria Surgical procedure, including post-operative management, hospitalization, immunosuppressive medications and their side effects (including the risk for hypertension, diabetes, kidney problems and cancers) and halfway follow up after transplant. Possibility of recurrent [...] was also addressed Patient was provided with [facility] information sheet regarding transplantation of HepatitisC [...] In Department: TRANSPLANT CENTER documented in this encounterDay[facility]04-11-2025 [facility]04-11-2025 History of Present illness Narrative* Marah [...] 12, 2024 1:16 PM documented in this encounterDayton [facility]04-11-2025 Miscellaneous Notes* Telephone Encounter - Jeremi Abreu RN - 11/12/2024 12:08 PM EDT INFORMED CONSENT Franklin Wiggins Medical Record: [id number] Informed consent for Organ Transplant Program Participation [...] and have questions answered. Jeremi Abreu RN, BLAIRN [employer] documented in this encounterDayton [facility]opathic Hospital04-11-2025 Telephone encounter Note * Telephone Encounter - Jeremi Abreu RN - 11/12/2024 12:08 PM EDT INFORMED CONSENT Franklin Wiggins Medical Record: [id number] Informed consent for Organ Transplant Program Participation [...] questions answered. Jeremi Abreu RN, BSN [employer] [facility] Work Phone: 1(324) 130-373404-11-2025 [facility]04-11-2025 NoteHNO ID: [id number] Author: KIRTI VELÁSQUEZ RN Service: Nursing Author Type: Registered Nurse Type: Nursing Progress Note Filed: 11/12/2024 00:58 Note Text: Other: PTTAC-no clot detected at 320-heparin gtt stopped-need futher orders-clinical services professional notifiedC[facility] Clinic [facility]04-10-2025 [facility] 11-11-2024 NoteC[facility]04-10-2025 NoteC[facility]04-09-2025 Discharge summary Author Kathie Powers [facility] Note Date/Time November 10, 2024 8:42 pm [facility] Medical Records Department [address] [place] [address] Discharge Summary 11/10/241936 MR#: [id number] Acct: [id number] Name: FRANKLIN WIGGINS Rep #:[id number] : 1965 59 From: Kathie Powers MD PCP: Care Physician,No Primary Status :ADM IN Location: [place]- 1 Providers Date of Admission: 10/29/24 Date of Discharge: 11/10/24 Primary Care Physician: No Primary Care Phys Consultations 10/29/24 01:15 Consult: Urology Routine Consulting Provider: Foster Rascon Reason for Consult: Sepsis with UTI and Staghorn Calculus. EMERGENT Consult: No MD Notified: Yes Date Notified: 10/29/24 Time Notified: 08:07 Method of Notification: Verbal 10/29/24 01:47 Consult: Jig And Fixture Maker / Pulmonary Medicine Routine Consulting Provider: Intensivists/Pulmonary Med Reason for Consult: Sepsis, UTI, Diarrhea, Abdominal Pain and Back Pain. EMERGENT Consult: No MD Notified: Yes Date Notified: 10/29/24 Time Notified: 04:58 Method of Notification: Text 10/30/24 03:54 Consult: Gastroenterology Routine Consulting Provider: [facility] Reason for Consult: BOYER, elevated ammonia EMERGENT Consult: No MD Notified: Yes Date Notified: 10/30/24 Time Notified: 07:31 Method of Notification: Text 11/09/24 21:26 Consult: Gastroenterology Routine Consulting Provider: [facility] Reason for Consult: cirrhosis,ascites,splenic thrombosis, low [...] mg PO Q8 PRN fever or pain 03/27/25 calcium 500 mg (as carbonate)-vitamin D3 5 [...] diabetes, staghorn colliculi, cirrhosis who presented to [facility] ED 10/29/2024 with sepsis and was found [...] heme-onc was in agreement. Reach out to [facility] and ultimately patient was accepted by the foam caster Dr. Neal. Patient with bed assignment 11/10, patient to be transferred [facility] Physical Exam Narrative General: Sleeping but will [...] 83.0 H, Lymph % (Auto) 6.6 L, [place] % (Auto) 6.9, Eos % (Auto) 1.9, [...] Clarity Turbid, Urine pH 6.5, Ur Specific [place] 1.015, Urine Protein 500 H, Urine Glucose [...] Garza; Zachariah Glover; Scott Weston; Yue Delgadillo PRINCIPAL EXAMINER Discharge Orders/Prescriptions Prescriptions: No Action lidocaine 5 [...] Care Hospital Charges/Coding Visit Charges Inpatient E&M: 03632 Disch Hosp >30min 11/10/242041 <Electronically signed by Kathie Powers MD> Cosigner Signature (if applicable): CC: Dr. Kathie Powers MD; No Primary Care Physician~ Signed [facility] Work Phone: [phone]) 388-164204-09-2025 Discharge summary Author Kathie Powers [facility] Note Date/Time November 10, 2024 7:37 pm [facility] Medical Records Department [address] [place] [address] Instructions for Home/Discharge Instructions 11/10/241935 MR#: [id number] Acct: [id number] Name: FRANKLIN WIGGINS Rep #:[id number] : [...] or pain) [facility] - [facility] 1 Week Care Physician,No Primary [Primary Care Provider] - Disposition Disposition (needs filled in before D/C Order can be placed): [facility] 11/10/241936<Electronically signed by Kathie Powers MD>Kathie Powers MD CC: PRINCIPAL EXAMINER-Pastora Delgadillo; Dr. Hill Herrmann MD; Dr. Hill Acuña MD; Dr. Hill Caro DO; Dr. Thiago Wray MD; Dr. Blair Cage MD; Dr. Foster Gresham MD; Dr. Gabbi Hughes MD; Dr. Buster Fuchs MD; Dr. Thai Godfrey MD; Dr. Zachariah Glover MD; Dr. Juan Daniel Garza MD; Dr. Scott Weston DO; No Primary Care Physician ~ Signed [facility] Work Phone: [phone]) [phone] Consult note Author Foster Rascon [facility] Note Date/Time November 10, 2024 8:59 am [facility] Medical Records Department [address] [place] [address] Consultation 11/10/24 0857 MR#: [id number] Acct: [id number] Name: FRANKLIN WIGGINS Rep #:[id number] : 1965 59 From: Foster Rascon MD PCP: Care Physician,No Primary Status :ADM IN Location: [place] [id number]- 1 Consult Date of Consult: 11/10/24 59-year-old [...] applicable): CC: No Primary Care Physician~ Signed [facility] Work Phone: [phone]) 176-898304-08-2025 Progress note Author Kathie Powers [facility] Note Date/Time November 09, 2024 9:26 pm [facility] Medical Records Department [address] [place] [address] Progress Note - Hospitalist 11/09/242120 MR#: [id number] Acct: [id number] Name: FRANKLIN WIGGINS Rep #:[id number] : 1965 59 From: Kathie Powers MD PCP: Care Physician,No Primary Status :ADM IN Location: [place] [address] scan w/ ascites and [...] Cosigner Signature (if applicable): CC: ~ Signed [facility] Work Phone: [phone]) [phone] Progress note Author Kathie Powers [facility] Note Date/Time November 09, 2024 6:[address] [facility] Medical Records Department [address] [place] [address] Progress Note - Hospitalist 11/09/24 1850 MR#: [id number] Acct: [id number] Name: FRANKLIN WIGGINS Rep #:[id number] : 1965 59 From: Kathie Powers MD PCP: Care Physician,No Primary Status :ADM IN Location: [place] [address] Reason for Visit Reason for Visit: Diagnoses [...] 79.1 H, Lymph % (Auto) 8.2 L, [place] % (Auto) 8.1, Eos % (Auto) 3.0, [...] with interval NG tube removal. Reading Location: [facility] Rhythm Strip Rhythm Strip: Sinus Rhythm Rate: [...] color and output #DVT ppx: SCDs Kathie Powers MD Time spent in the patient's overall evaluation, decision-making process, review of diagnostic data, adjustment of management, discussion with other providers, nursing and ancillary staff involved in patient's care documentation, 42 Minutes Charges/Coding Visit Charges Inpatient E&M: 85307 Subs Hosp L2 11/09/24 5247 <Electronically signed by Kathie Powers MD> Cosigner Signature (if applicable): CC: ~ Signed [facility] Work Phone: 1(595) 372-638504-08-2025 Radiology Diagnostic study [facility]04-08-2025 Radiology Diagnostic study [facility]04-07-2025 Progress note Author Kathie Powers [facility] Note Date/Time November 08, 2024 6:26 pm [facility] Medical Records Department [address] [place] [address] Progress Note - Hospitalist 11/08/24 1441 MR#: [id number] Acct: [id number] Name: FRANKLIN WIGGINS Rep #:[id number] : 1965 59 From: Kathie Powers MD PCP: Care Physician,No Primary Status :ADM IN Location: [place] [address] Reason for Visit Reason for Visit: Diagnoses [...] 56 Minutes Charges/Coding Visit Charges Inpatient E&M: 62243 Subs Hosp L3 11/08/24 1503 <Electronically signed [...] Cosigner Signature (if applicable): cc: ~* Signed [facility] Work Phone: [phone]) [phone] Progress note Author Hill Acuña [facility] Note Date/Time November 07, 2024 10:[address] [facility] Medical Records Department [address] [place] [address] Progress Note - Hospitalist 11/07/24 0913 MR#: [id number] Acct: [id number] Name: FRANKLIN WIGGINS Rep #:[id number] : 1965 59 From: Hill Acuña MD PCP: Care Physician,No Primary Status :ADM IN Location: [place] [address] Reason for Visit Reason for Visit: Diagnoses [...] 81.5 H, Lymph % (Auto) 6.9 L, [place] % (Auto) 6.9, Eos % (Auto) 2.3, [...] Requested for PT OT eval and social welfare administrator to assist with discharge planning ? 11/05/2024; [...] 36 Minutes Charges/Coding Visit Charges Inpatient E&M: 13133 Subs Hosp L2 11/07/24 1038 <Electronically signed by Hill Acuña MD> Cosigner Signature (if applicable): CC: ~ Signed [facility] Work Phone: [phone] Progress note Author Hill Acuña [facility] Note Date/Time November 06, 2024 10:[address] [facility] Medical Records Department [address] [place] [address] Progress Note - Hospitalist 11/06/24 0756 MR#: [id number] Acct: [id number] Name: FRANKLIN WIGGINS Rep #:[id number] : 1965 59 From: Hill Acuña MD PCP: Care Physician,No Primary Status :ADM IN Location: [place] [address] Reason for Visit Reason for Visit: Diagnoses [...] Requested for PT OT eval and social welfare administrator to assist with discharge planning ? 11/05/2024; [...] 36 Minutes Charges/Coding Visit Charges Inpatient E&M: 14794 Subs Hosp L2 11/06/24 1057 <Electronically signed by Hill Acuña MD> Cosigner Signature (if applicable): CC: ~ Signed [facility] Work Phone: [phone] Progress [facility] Note Date/Time November 05, 2024 9:26 am [facility] Medical Records Department [address] [place] [address] Progress Note - Hospitalist 11/05/24 0924 MR#: [id number] Acct: [id number] Name: FRANKLIN WIGGINS Rep #:[id number] : 1965 59 From: Hill Acuña MD PCP: Care Physician,No Primary Status :ADM IN Location: [place] [address] Reason for Visit Reason for Visit: Diagnoses [...] 81.0 H, Lymph % (Auto) 6.7 L, [place] % (Auto) 7.1, Eos % (Auto) 2.3, [...] Requested for PT OT eval and social welfare administrator to assist with discharge planning ? 11/05/2024; plan is for patient to be discharged home when medically stable. Patient does not qualify for home health as he currently does not have a primarycare physician he has been given a referral to [facility] Time spent in the patient's overall evaluation,decision-making process, review of diagnostic data, adjustment of management, discussion with other providers, nursing nursing and ancillary staff involved in patient's care documentation, 38 Minutes Charges/Coding Visit Charges Inpatient E&M: 12019 Subs Hosp L2 11/05/24 0926 <Electronically signed by Hill Acuña MD> Cosigner Signature (if applicable): CC: ~ Signed [facility] Work Phone: [phone] 625-785104-03-2025 Progress note Author Hill Acuña [facility] Note Date/Time November 04, 2024 11:5 0am [facility] Medical Records Department [address] [place] [address] Progress Note - Hospitalist 11/04/24 1105 MR#: [id number] Acct: [id number] Name: FRANKLIN WIGGINS Rep #:[id number] : 1965 59 From: Hill Acuña MD PCP: Care Physician,No Primary Status :ADM IN Location: [place] [address] Reason for Visit Reason for Visit: Diagnoses [...] 83.6 H, Lymph % (Auto) 4.9 L, [place] % (Auto) 5.9, Eos % (Auto) 1.1, [...] Requested for PT OT eval and social welfare administrator to assist with discharge planning Time spent in the patient's overall evaluation,decision-making process, review of diagnostic data, adjustment of management, discussion with other providers, nursing nursing and ancillary staff involved in patient's care documentation, 38 Minutes Charges/Coding Visit Charges Inpatient E&M: 82993 Subs Hosp L2 11/04/24 1150 <Electronically signed by Hill Acuña MD> Cosigner Signature (if applicable): CC: ~ Signed [facility] Work Phone: [phone] Progress note Author [facility] Note Date/Time November 04, 2024 6:43 am [facility] Medical Records Department [address] [place] [address] Progress Note - Hospitalist 11/04/24 0642 MR#: [id number] Acct: [id number] Name: FRANKLIN WIGGINS Rep #:[id number] : 1965 59 From: Maria Guadalupe Shore MD PCP: Care Physician,No Primary Status :ADM IN Location: [place] [address] Hospitalist Note Patient with 15 beat asymptomatic VT. Electrolytes recently checked, mag normal range, K normal range. 11/04/24 0643 <Electronically signed by Maria Guadalupe Shore MD> Cosigner Signature (if applicable): CC: ~ Signed [facility] Work Phone: [phone] Progress note Author [facility] Note Date/Time November 03, 2024 10:3 8pm [facility] Medical Records Department [address] [place] [address] Progress Note - Hospitalist 11/03/242236 MR#: [id number] Acct: [id number] Name: FRANKLIN WIGGINS Rep #:[id number] : 1965 59 From: Maria Guadalupe Shore MD PCP: Care Physician,No Primary Status :ADM IN Location: [place] [address] Hospitalist Note Patient with mildly tachycardia through the late afternoon and evening. Will administer 500 cc bolus and reassess. From review of medications not normally onBB therapy. 11/03/242237 <Electronically signed by Maria Guadalupe Shore MD> Cosigner Signature (if applicable): CC: ~ Signed [facility] Work Phone: [phone] Progress note Author Hill Acuña [facility] Note Date/Time November 03, 2024 10:2 7am [facility] Medical Records Department [address] [place] [address] Progress Note - Hospitalist 11/03/24 1025 MR#: [id number] Acct: [id number] Name: FRANKLIN WIGGINS Rep #:[id number] : 1965 59 From: Hill Acuña MD PCP: Care Physician,No Primary Status :ADM IN Location: [address] 1 Reason for Visit Reason for Visit: [...] Requested for PT OT eval and social welfare administrator to assist with discharge planning Time spent in the patient's overall evaluation,decision-making process, review of diagnostic data, adjustment of management, discussion with other providers, nursing nursing and ancillary staff involved in patient's care documentation, 38 Minutes Charges/Coding Visit Charges Inpatient E&M: 69169 Subs Hosp L2 11/03/24 1027 <Electronically signed by Hill Acuña MD> Cosigner Signature (if applicable): CC: ~ Signed [facility] Work Phone: [phone] Progress note Author Hill Acuña [facility] Note Date/Time November 02, 2024 10:0 5am [facility] Medical Records Department [address] [place] [address] Progress Note - Hospitalist 11/02/24 0804 MR#: [id number] Acct: [id number] Name: FRANKLIN WIGGINS Rep #:[id number] : 1965 59 From: Hill Acuña MD PCP: Care Physician,No Primary Status :ADM IN Location: [place] [address] Reason for Visit Reason for Visit: Diagnoses [...] 50 Minutes Charges/Coding Visit Charges Inpatient E&M: 57717 Subs Hosp L3 11/02/24 1005 <Electronically signed by Hill Acuña MD> Cosigner Signature (if applicable): CC: ~ Signed [facility] Work Phone: [phone] Progress note Author Hill Acuña [facility] Note Date/Time November 01, 2024 11: 41am [facility] Medical Records Department [address] [place] [address] Progress Note - Hospitalist 11/01/24 1128 MR#: [id number] Acct: [id number] Name: FRANKLIN WIGGINS Rep #:[id number] : 1965 59 From: Hill Acuña MD PCP: Care Physician,No Primary Status :ADM IN Location: [place] [address] Reason for Visit Reason for Visit: Diagnoses [...] 50 Minutes Charges/Coding Visit Charges Inpatient E&M: 26880 Subs Hosp L3 11/01/24 1141 <Electronically signed by Hill Acuña MD> Cosigner Signature (if applicable): CC: ~ Signed [facility] Work Phone: [phone] Progress note Author Niranjan Li [facility] Note Date/Time November 01, 2024 8:[address] [facility] Medical Records Department [address] [place] [address] Progress Note 11/01/24 0836 MR#: [id number] Acct: [id number] Name: FRANKLIN WIGGINS Rep #:[id number] : 1965 59 From: Niranjan Li DO PCP: Care Physician,No Primary Status :ADM IN Location: [place] [address]- Progress Note Patient has a little bit [...] from the hospital if it is possible. Arashwill need this approximately 7 days after he [...] doses of vancomycin. Visit Charges Inpatient E&M: 00421 Subs Hosp L3 11/01/24 0844 <Electronically signed by Niranjan Friend DO> Niranjan Friend DO Cosigner Signature (if applicable): CC: ~ Signed [facility] Work Phone: [phone] Consult note Author Ale Renee [facility] Note Date/Time November 01, 2024 6:1 1am [facility] Medical Records Department [address] [place] [address] Pharmacokinetic/Renal -Consult 11/01/24 0604 MR#: [id number] Acct: [id number] Name: FRANKLIN WIGGINS Rep #:[id number] : 1965 59 From: Ale Renee PCP: Care Physician,No Primary Status :ADM IN Location: [place] [address] Consult Antibiotic Management Pharmacy has been consulted [...] Date Hill Caro DO CC: ~ Signed [facility] Work Phone: [phone] 117-910603-30-2025 Progress note Author Buster Fuchs [facility] Note Date/Time October 31, 2024 9:5 5am [facility] Medical Records Department [address] [place] [address] Progress Note - Hospitalist 10/31/24951 MR#: [id number] Acct: [id number] Name: FRANKLIN WIGGINS Rep #:[id number] : [...] (Auto) 80.3 H, Lymph %(Auto) 5.9 L, [place] % (Auto) 7.9, Eos % (Auto) 1.5, [...] they did add IV Flagyl ? Appreciate bottom liner assistance 2. Acute metabolic cephalopathy with nonalcoholic [...] DVT: SCDs Charges/Coding Visit Charges Inpatient E&M: 24367 Subs Hosp L2 10/31/24 0955 <Electronically signed by Buster Fuchs MD> Cosigner Signature (if applicable): CC: ~ Signed [facility] Work Phone: [phone] 667-584603-30-2025 Consult note Author Foster Rascon [facility] Note Date/Time October 31, 2024 7:[address] [facility] Medical Records Department [address] [place] [address] Consultation 10/31/24 0730 MR#: [id number] Acct: [id number] Name: FRANKLIN WIGGINS Rep #:[id number] : [...] applicable): CC: No Primary Care Physician~ Signed [facility] Work Phone: [phone] Consult note Author Niranjan Li [facility] Note Date/Time October 30, 2024 9:3 4pm [facility] Medical Records Department [address] [place] [address] Consultation - GI 10/30/242047 MR#: [id number] Acct: [id number] Name: FRANKLIN WIGGINS Rep #:[id number] : [...] of yellow-colored fluid removed. He presented back[facility] ER complaining of abdominal pain, back pain [...] He is also on Zosyn for urosepsis. [facility] Medical History Chronic hypotension Obesity (BMI 30-39.9) [...] 85.6 H, Lymph % (Auto) 4.3 L, [place] % (Auto) 7.3, Eos % (Auto) 0.5, [...] NG tube in satisfactory position. Reading Location: [facility] [facility] Assessment & Plan Assessment/Plan (1) Sepsis: QUALIFIERS: [...] this admission. Charges/Coding Visit Charges Inpatient E&M: 86524 Init Hosp L3 10/30/242133 <Electronically signed by Niranjan Li DO> Cosigner Signature (if applicable): CC: No Primary Care Physician~ Signed [facility] Work Phone: 1([phone]) 351-809103-29-2025 Consult note Author Kourtney Reece [facility] Note Date/Time October 30, 2024 4:1 2pm [facility] Medical Records Department [address] [place] [address] Pharmacokinetic/Renal -Consult 10/30/24 1552 MR#: [id number] Acct: [id number] Name: GEREMIASFRANKLIN CARMELA Rep #:[id number] : 1965 59 From: [...] Date Buster Fuchs MD CC: ~ Signed [facility] Work Phone: [phone]) 330-597903-29-2025 Progress note Author Jeff [facility] Note Date/Time October 30, 2024 10: 45am [facility] Medical Records Department [address] [place] [address] Progress Note - Jig And Fixture Maker 10/30/24 1037 MR#: [id number] Acct: [id number] Name: FRANKLIN WIGGINS Rep #:[id number] : [...] Lidocaine 5% Patch TOPICAL Not Given DAILY KRYSTIN Protocol Midodrine 10 mg 10/29/24 02:00 10/30/24 [...] 85.5 H, Lymph % (Auto) 4.6 L, [place] % (Auto) 7.4, Eos % (Auto) 1.2, [...] 85.6 H, Lymph % (Auto) 4.3 L, [place] % (Auto) 7.3, Eos % (Auto) 0.5, [...] NG tube in satisfactory position. Reading [facility] Assessment and Plan . Assessment and plan: [...] Cosigner Signature (if applicable): CC: ~ Signed [facility] Work Phone: [phone]) [phone] Consult note Author Foster Rascon [facility] Note Date/Time October 30, 2024 9:[address] [facility] Medical Records Department [address] [place] [address] Consultation - Urology 10/30/24 0956 MR#: [id number] Acct: [id number] Name: FRANKLIN WIGGINS Rep #:[id number] : [...] not available on the weekend here at [facility]. We discussed transferring to other hospital for nephrostomy tube placement. We could also have a nephrostomy tube placed on Friday if radiology services are available. For now we will continue with broad-spectrum antibiotics await culture results but if things progress I think he is going to need nephrostomy tube we will continue to follow. [facility] Medical History Chronic hypotension Obesity (BMI 30-39.9) [...] 85.5 H, Lymph % (Auto) 4.6 L, [place] % (Auto) 7.4, Eos % (Auto) 1.2, [...] 85.6 H, Lymph % (Auto) 4.3 L, [place] % (Auto) 7.3, Eos % (Auto) 0.5, [...] NG tube in satisfactory position. Reading Location[facility] 10/30/2458 <Electronically signed by Foster Rascon MD> Cosigner Signature (if applicable): CC: No Primary Care Physician~ Signed [facility] Work Phone: [phone]) [phone] Progress note Author Buster Fuchs [facility] Note Date/Time October 30, 2024 8:2 9am [facility] Medical Records Department [address] [place] [address] Progress Note - Hospitalist 10/30/24 0820 MR#: [id number] Acct: [id number] Name: FRANKLIN WIGGINS Rep #:[id number] : 1965 59 From: [...] 85.5 H, Lymph % (Auto) 4.6 L, [place] % (Auto) 7.4, Eos % (Auto) 1.2, [...] 85.6 H, Lymph % (Auto) 4.3 L, [place] % (Auto) 7.3, Eos % (Auto) 0.5, [...] 3. Left-sided ureteral stent noted. Reading Location: [facility] Rhythm Strip Rhythm Strip: Sinus Rhythm [...] antibiotics ? Cultures are pending ? Appreciate bottom liner assistance 2. Acute metabolic cephalopathy with nonalcoholic [...] DVT: SCDs Charges/Coding Visit Charges Inpatient E&M: 41612 Subs Hosp L2 10/30/24 0829 <Electronically signed by Buster Fuchs MD> Cosigner Signature (if applicable): CC: ~ Signed [facility] Work Phone: [phone] Radiology Diagnostic study [facility]03-28-2025 Consult note Author Fsoter Rascon [facility] Note Date/Time October 29, 2024 10: 32am [facility] Medical Records Department [address] [place] [address] Consultation - Urology 10/29/24 0808 MR#: [id number] Acct: [id number] Name: FRANKLIN WIGGINS Rep #:[id number] : [...] emergency intervention is necessary from my standpoint [facility] Medical History Chronic hypotension Obesity (BMI 30-39.9) [...] 83.0 H, Lymph % (Auto) 5.6 L, [place] % (Auto) 8.4, Eos % (Auto) 1.4, [...] vertebral body compression fracture deformities. Reading Location: [facility] 10/29/24 1032 <Electronically signed by Foster Rascon MD> Cosigner Signature (if applicable): CC: No Primary Care Physician~ Signed [facility] Work Phone: [phone] Consult note Author Bola Meraz [facility] Note Date/Time October 29, 2024 10: 24am [facility] Medical Records Department [address] [place] [address] Consultation - Jig And Fixture Maker 10/29/24 0744 MR#: [id number] Acct: [id number] Name: FRANKLIN WIGGINS Rep #:[id number] : [...] coverage initiated. This note was generated with [employer] dictation software. It may contain incorrectwords, spelling, [...] stable, without the need for vasopressor support. [facility] Medical History Chronic hypotension Obesity (BMI 30-39.9) [...] 83.0 H, Lymph % (Auto) 5.6 L, [place] % (Auto) 8.4, Eos % (Auto) 1.4, [...] vertebral body compression fracture deformities. Reading Location: [id number] Charges/Coding Visit Charges Inpatient E&M: 94605 Init Hosp L3 10/29/24 1024 <Electronically signed by Bola Meraz DO> Cosigner Signature (if applicable): CC: No Primary Care Physician~ Signed [facility] Work Phone: [phone] Radiology Diagnostic study [facility]03-28-2025 History and physical note Author Hill Wright [facility] Note Date/Time October 29, 2024 6:4 7am [facility] Medical Records Department [address] [place] [address] H&P Exam - Hospitalist 10/29/24 0033 MR#: [id number] Acct: [id number] Name: FRANKLIN WIGGINS Rep #:[id number] : [...] toSeptember 02, 2024 with patient diagnosed with zxcfq-ir-ajtthxs hypotension in thesetting of acute hepatic encephalopathy [...] fluid removed who once again presents to [facility] ER complaining of abdominal pain, back pain [...] thatis expected to extend beyond 2 midnights. [facility] Medical History Chronic hypotension Obesity (BMI 30-39.9) [...] 83.0 H, Lymph % (Auto) 5.6 L, [place] % (Auto) 8.4, Eos % (Auto) 1.4, [...] vertebral body compression fracture deformities. Reading Location: [facility] Assessment & Plan Assessment/Plan (1) Sepsis: QUALIFIERS: [...] and sensitivity data. Give acetaminophen prn for alxv-au-trbnsfrw (level 1-5/10) pain or fever. Give morphine [...] appreciated in advance. Finally, we will consult bottom liner to see this patient on-rounds in the AM for further recommendations with help appreciated in advance. 2. Admission here from August 29, 2024 to September 02, 2024 with patient diagnosed with ddjhi-ku-dtxdkox hypotension in the setting of acute hepatic [...] responsive hypotension Charges/Coding Visit Charges Inpatient E&M: 55528 Init Hosp L3 10/29/24 0647 <Electronically signed by Hill Caro DO> Cosigner Signature (if applicable): CC: Dr. Hill Caro DO; No Primary Care Physician~ Signed [facility] Work Phone: [phone] Consult note Author Ale Renee [facility] Note Date/Time October 29, 2024 3:3 4am [facility] Medical Records Department [address] [place] [address] Pharmacokinetic/Renal -Consult 10/29/24316 MR#: [id number] Acct: [id number] Name: FRANKLIN WIGGINS Rep #:[id number] : [...] Date Hill Caro DO CC: ~ Signed [facility] Work Phone: [phone] Discharge summary Author Alber Dunn [facility] Note Date/Time October 29, 2024 1:[address] [facility] Medical Records Department [address] [place] [address] Emergency Department Summary 10/28/24 MR#: [id number] Acct: [id number] Name: FRANKLIN WIGGINS Rep #:[id number] : [...] 83.0 H Lymph % (Auto) 5.6 L [place] % (Auto) 8.4 Eos % (Auto) 1.4 [...] Clarity Cloudy Urine pH 6.5 Ur Specific [place] 1.015 Urine Protein 500 H Urine Glucose [...] vertebral body compression fracture deformities. Reading Location: [facility] Rhythm Strip Rhythm Strip: Sinus Rhythm Rate: 83 Ectopy: None EKG Initial EKG: Attestation: I personally reviewed and interpreted this EKG as follows: Interpretation: Sinus Rhythm and No Acute Injury Pattern Comments: Normal sinus rhythm rate 83 no acute signs of KS or ischemia. No dysrhythmia. Critical Care Time Critical Care Time: Yes Critical care time (excluding procedures): 30-74 minutes, Including time spent:,Discussing w/Patient &/or Family/[employer]ulic [employer] Operator, Discussing w/Consultants, ArrangingAdmission or Transfer, Performing Direct Patient Care at Bedside and - (38 min) Discharge Plan Dx/Rx/DC Orders Clinical Impression: Chronic back pain, Chronic abdominal pain, Leukocytosis, Acute UTI, Acute hypotension, Acidosis, lactic, Sepsis Disposition Disposition: [facility] What to do if you have Problems For any increased pain, shortness of breath, bleeding, nausea or vomiting, chestpain, or any unexpected problems, contact your Primary Care Provider. Call [facility] ([phone]) or report to the closest Emergency Room. Call 911 if necessary. 10/29/24 010 <Electronically signed by Alber Dunn MD> Cosigner Signature (if applicable): CC: No Primary Care Physician ~ Signed [facility] Work Phone: [phone] Evaluation note* Diagnosis Onset Date Resolution Status Admit Date Clostridium difficile colitis acute October 29, 2024 12:43am History of uric acid staghor n calculus acute October 29, 2024 12:43am Hyponatremia acute October 29, 2024 12:43am Leukocytosis acute October 29, 2024 12:43am Obesity (BMI 30.0-34.9) acute M 2024 12:43am Chronic abdominal pain chronic [facility] 2024 12:43am Chronic back pain [...] 2024 7:00am Lactic acidosis acute January 7:00am [facility] Work Phone: [phone] Evaluation note* Diagnosis Onset Date Resolution Status Admit Date Clostridium difficile colitis acute October 29, 2024 12:43am History of uric acid staghor n calculus acute October 29, 2024 12:43am Hyponatremia acute October 29, 2024 12:43am Leukocytosis acute October 29, 2024 12:43am Obesity (BMI 30.0-34.9) acute [facility] 2024 12:43am Chronic abdominal pain chronic [facility] 2024 12:43am Chronic back pain [...] January 7:00am Umbilical hernia acute January 7:00am [facility] Work Phone: [phone] Evaluation note* Diagnosis Onset Date Resolution Status [...] January 28 7:00am Hepatic encephalopathy resolved Ju ne 2024 7:00am Lactic acidosis resolved January 7:00am Umbilical hernia inactive January 7:00am [facility] Work Phone: [phone] Evaluation note* Diagnosis Onset Date Resolution Status Admit Date Clostridium difficile colitis acute October 29, 2024 12:43am History of uric acid staghor n calculus acute October 29, 2024 12:43am Hyponatremia acute October 29, 2024 12:43am Leukocytosis acute October 29, 2024 12:43am Obesity (BMI 30.0-34.9) acute M arch 2024 12:43am Chronic abdominal pain chronic [facility] 2024 12:43am Chronic back pain chronic [...] 16, 2025 6:26pm Elevated liver enzymes acute Ju ly 2024 6:26pm History of diabetes mellitus acute February 16, 2025 6:26pm Hyperammonemia acute February 16, 2025 6:26pm Chronic anemia chronic February 16, 2025 6:26pm [facility] Work Phone: [phone] Evaluation note* Diagnosis Onset Date Resolution Status Admit Date Clostridium difficile colitis acute October 29, 2024 12:43am History of uric acid staghor n calculus acute October 29, 2024 12:43am Hyponatremia acute October 29, 2024 12:43am Leukocytosis acute October 29, 2024 12:43am Obesity (BMI 30.0-34.9) acute M arch 2024 12:43am Chronic abdominal pain chronic [facility] 2024 12:43am Chronic back pain chronic [...] acic spine, non-traumatic acute January 09, 2:16pm Leukocytosis acute January 09 2:16pm Metabolic [...] ascites acut e February 16, 2025 6:26pm Decompensated cirrhosis acute J pam 2024 6:26pm Elevated liver enzymes acute Ju ly 2024 6:26pm History of diabetes mellitus acute February 16, 2025 6:26pm Hyperammonemia acute February 16, 2025 6:26pm Chronic anemia chronic February 16, 2025 6:26pm [facility] Work Phone: [phone] Discharge summary [facility] Medical Records Department [address] [place] [address] Emergency Department Summary 10/28/24 MR#: [id number] Acct: [id number] Name: FRANKLIN WIGGINS Rep #:[id number] : [...] sepsis. Currently he is stable at12:10 AM. [facility] blood pressure is 110/67. Spoke to the [...] 83.0 H Lymph % (Auto) 5.6 L [place] % (Auto) 8.4 Eos % (Auto) 1.4 [...] Clarity Cloudy Urine pH 6.5 Ur Specific [place] 1.015 Urine Protein 500 H Urine Glucose [...] vertebral body compression fracture deformities. Reading Location: [facility] Rhythm Strip Rhythm Strip: Sinus Rhythm Rate: 83 Ectopy: None EKG Initial EKG: Attestation: I personally reviewed and interpreted this EKG as follows: Interpretation: Sinus Rhythm and No Acute Injury Pattern Comments: Normal sinus rhythm rate 83 no acute signs of KS or ischemia. No dysrhythmia. Critical Care Time Critical Care Time: Yes Critical care time (excluding procedures): 30-74 minutes, Including time spent:,Discussing w/Patient &/or Family/[employer] Operator, Discussing w/Consultants, ArrangingAdmission or Transfer, Performing Direct Patient Care at Bedside and - (38 min) Discharge Plan Dx/Rx/DC Orders Clinical Impression: Chronic back pain, Chronic abdominal pain, Leukocytosis, Acute UTI, Acute hypotension, Acidosis, lactic, Sepsis Disposition Disposition: [facility] What to do if you have Problems For any increased pain, shortness of breath, bleeding, nausea or vomiting, chestpain, or any unexpected problems, contact your Primary Care Provider. Call [facility] ([phone]) or report tothe closest Emergency Room. Call 911 if necessary. 10/29/24 0104 Cosigner Signature (if applicable): CC: No Primary Care Physician ~ Signed [facility]03-27-2025 Radiology Diagnostic study note [facility] Imaging Services [address] [place] [address] Abdomen/Pelvis W IV Cont ONLY MR#: [id number] Acct: [id number] Name: FRANKLIN WIGGINS Rep #: [id number] : 1965 M 59 From: Cassandra Starkey MD PCP: Care Physician,No Primary Status: REG ER Study:Abdomen/Pelvis W IV Cont ONLY Date of E xam: 10/28/24 Exam# [id number] Ordering Dr: Tee Dunn MD PROCEDURE: ABDOMEN/PELVIS [...] vertebral body compression fracture deformities. Reading Location: [facility] CC: Dr. Alber Dunn MD; No Primary Care Physician ~ Turnstile Collector: Signed [facility]03-27-2025 Discharge summary Author Alber Dunn [facility] Note Date/Time October 29, 2024 1:0 4am [facility] Medical Records Department [address] [place] [address] Emergency Department Summary 10/28/24 MR#: [id number] Acct: [id number] Name: FRANKLIN WIGGINS Rep #:[id number] : [...] Prior similar symptoms: Yes Recent [facility] Medical History Chronic hypotension Obesity (BMI 30-39.9) [...] 83.0 H Lymph % (Auto) 5.6 L [place] % (Auto) 8.4 Eos % (Auto) 1.4 [...] Clarity Cloudy Urine pH 6.5 Ur Specific [place] 1.015 Urine Protein 500 H Urine Glucose [...] vertebral body compression fracture deformities. Reading Location: [facility] Rhythm Strip Rhythm Strip: Sinus Rhythm Rate: 83 Ectopy: None EKG Initial EKG: Attestation: I personally reviewed and interpreted this EKG as follows: Interpretation: Sinus Rhythm and No Acute Injury Pattern Comments: Normal sinus rhythm rate 83 no acute signs of KS or ischemia. No dysrhythmia. Critical Care Time Critical Care Time: Yes Critical care time (excluding procedures): 30-74 minutes, Including time spent:,Discussing w/Patient &/or Family/[employer] [employer] Operator, Discussing w/Consultants, ArrangingAdmission or Transfer, Performing Direct Patient Care at Bedside and - (38 min) Discharge Plan Dx/Rx/DC Orders Clinical Impression: Chronic back pain, Chronic abdominal pain, Leukocytosis, Acute UTI, Acute hypotension, Acidosis, lactic, Sepsis Disposition Disposition: [facility] What to do if you have Problems For any increased pain, shortness of breath, bleeding, nausea or vomiting, chestpain, or any unexpected problems, contact your Primary Care Provider. Call [facility] ([phone]) or report to the closest Emergency Room. Call 911 if necessary. 10/29/24 0104 <Electronically signed by Alber Dunn MD> Cosigner Signature (if applicable): CC: No Primary Care Physician ~ Signed [facility] Work Phone: [phone]) [phone] Procedure note* Joey Huang DO - 10/04/2024 5:17 PM ESTAssociated Order(s): Paracentesis Post-Procedure Diagnose(s): Other ascites Paracentesis Date/Time: 10/04/2024 5:17 PM Performed by: Joey Huang DO Authorized by: Joey Huang DO Consent: Consent obtained: Written Consent given by: Patient Risks, benefits, and alternatives were discussed: yes Risks discussed: Bleeding, bowel perforation and infection Alternatives discussed: No treatment [place] protocol: Procedure explained and questions answered to [...] Adhesive bandage Post-procedure details: Procedure completion: Tolerated [facility] Work Phone: [phone] Procedure note* Joey Huang DO - 10/04/2024 5:17 PM ESTAssociated Order(s): Paracentesis Post-Procedure Diagnose(s): Other ascites Paracentesis Date/Time: 10/04/2024 5:17 PM Performed by: Joey Huang DO Authorized by: Joey Huang DO Consent: Consent obtained: Written Consent given by: Patient Risks, benefits, and alternatives were discussed: yes Risks discussed: Bleeding, bowel perforation and infection Alternatives discussed: No treatment [place] protocol: Procedure explained and questions answered to [...] details: Procedure completion: Tolerated documented in this [facility] Work Phone: 1(547) 337-344503-03-2025 Consult note* Joey Huang DO - 10/04/2024 5:13 PM EST Reason For Consult Ascites History Of Present Illness Franklin Wiggins is a 59 y.o. male presenting with abdominal pain. He presented to the emergency room from [facility] secondary to increasing abdominal girth pain and ascites He was recently drained at [facility] for his ascites His abdomen is [...] call Assessment & Plan Joey Huang DO [facility] Work Phone: [phone] Consult note* Joey Huang DO - 10/04/2024 5:13 PM EST Reason For Consult Ascites History Of Present Illness Franklin Wiggins is a 59 y.o. male presenting with abdominal pain. He presented to the emergency room from [facility] secondary to increasing abdominal girth pain and ascites He was recently drained at [facility] for his ascites His abdomen is [...] Plan Joey Huang DO documented in this [facility] Work Phone: [phone]) 418-378803-03-2025 Physician Emergency department Note* Sriram Oleary PA-C [...] Abnormality Status --------- ------ Urinalysis with Reflex C...[[id number]] Extra Urine Toney Tube[[id number]] Please view results for these tests on the individual orders. URINALYSIS WITH REFLEX CULTURE AND MICROSCOPIC EXTRA URINE TONEY TUBE PH, BODY FLUID LACTATE DEHYDROGENASE, BODY FLUID Narrative: The following orders were created for panel order Lactate Dehydrogenase, Body Fluid. Procedure Abnormality Status --------- ------ Lactate Dehydrogenase, B...[[id number]] In process Please view results for these tests on the individual orders. GLUCOSE, BODY FLUID Narrative: The following orders were created for panel order Glucose, Body Fluid. Procedure Abnormality Status --------- ------ Glucose, Body Fluid[[id number]] In process Please view results for these tests on the individual orders. PROTEIN, TOTAL, BODY FLUID Narrative: The following orders were created for panel order Protein, Total, Body Fluid. Procedure Abnormality Status --------- ------ Protein, Total, Body Fluid[[id number]] In process Please view results for these tests on the individual orders. BODY FLUID CELL COUNT WITH DIFFERENTIAL Narrative: The following orders were created for panel order Body Fluid Cell Count With Differential. Procedure Abnormality Status --------- ------ Body Fluid Cell Count[[id number]] In process Body Fluid Differential[[id number]] In process Please view results for these tests on the individual orders. ALBUMIN, BODY FLUID Narrative: The following orders were created for panel order Albumin, Body Fluid. Procedure Abnormality Status --------- ------ Albumin, Body Fluid[[id number]] In process Please view results for these [...] Yohana Huang 10/04/2024 2:28 PM Dictation workstation: [id number] Procedures Medical Decision Making Patient is a 59-year-old male with a hx of cirrhosis who presents to the emergency department with a chief complaint of abdominal pain from [facility]. He reports increased abdominal pain that he describes as generalized, states that his abdomen is distended. Recently had a paracentesis performed at [facility] on September 29. Patient reports that [...] type (Multi) Sriram Oleary PA-C 10/04/24 1737 [facility] Work Phone: 1([phone]) 855-879003-03-2025 Emergency department Note* Sriram Oleary PA-C - [...] Abnormality Status --------- ------ Urinalysis with Reflex C...[[id number]] Extra Urine Toney Tube[[id number]] Please view results for these tests on the individual orders. URINALYSIS WITH REFLEX CULTURE AND MICROSCOPIC EXTRA URINE TONEY TUBE PH, BODY FLUID LACTATE DEHYDROGENASE, BODY FLUID Narrative: The following orders were created for panel order Lactate Dehydrogenase, Body Fluid. Procedure Abnormality Status --------- ------ Lactate Dehydrogenase, B...[[id number]] In process Please view results for these tests on the individual orders. GLUCOSE, BODY FLUID Narrative: The following orders were created for panel order Glucose, Body Fluid. Procedure Abnormality Status --------- ------ Glucose, Body Fluid[[id number]] In process Please view results for these tests on the individual orders. PROTEIN, TOTAL, BODY FLUID Narrative: The following orders were created for panel order Protein, Total, Body Fluid. Procedure Abnormality Status --------- ------ Protein, Total, Body Fluid[[id number]] In process Please view results for these tests on the individual orders. BODY FLUID CELL COUNT WITH DIFFERENTIAL Narrative: The following orders were created for panel order Body Fluid Cell Count With Differential. Procedure Abnormality Status --------- ------ Body Fluid Cell Count[[id number]] In process Body Fluid Differential[[id number]] In process Please view results for these tests on the individual orders. ALBUMIN, BODY FLUID Narrative: The following orders were created for panel order Albumin, Body Fluid. Procedure Abnormality Status --------- ------ Albumin, Body Fluid[[id number]] In process Please view results for these [...] Yohana Huang 10/04/2024 2:28 PM Dictation workstation: [id number] Procedures Medical Decision Making Patient is a 59-year-old male with a hx of cirrhosis who presents to the emergency department with a chief complaint of abdominal pain from [facility]. He reports increased abdominal pain that he describes as generalized, states that his abdomen is distended. Recently had a paracentesis performed at [facility] on September 29. Patient reports that [...] Risk Prescription drug management. Diagnoses as of 10/04/247 Other ascites Abdominal pain, generalized Other cirrhosis of liver Peripheral edema Coagulopathy (Multi) Hyperbilirubinemia Cirrhosis of liver with ascites, unspecified hepatic cirrhosis type (Multi) Sriram Oleary PA-C 10/04/24 1737 documented in this [facility] Work Phone: 1(286) 194-139502-26-2025 Evaluation note* Diagnosis Onset Date Resolution Status Admit Date Abdominal ascites acute Februar y 2024 9:35am Clostridium difficile colitis acute October 29, 2024 12:43am History of uric acid staghor n calculus acute October 29, 2024 12:43am Hyponatremia acute October 29, 2024 12:43am Leukocytosis acute October 29, 2024 12:43am Obesity (BMI 30.0-34.9) acute M arch 2024 12:43am Chronic abdominal pain chronic [facility] 2024 12:43am Chronic back pain chronic [...] 2 :16pm Umbilical hernia acute January 2:16pm [facility] Work Phone: 1(610) 805-141302-26-2025 Procedure note [facility] Medical Records Department [address] [place] [address] Operative Report 09/29/24 1048 MR#: [id number] Acct: [id number] Name: FRANKLIN WIGGINS Rep #:[id number] : 1965 59 From: Jasmine gusman PRINCIPAL EXAMINER PRINCIPAL EXAMINER-C PCP: Care Physician,No Primary Status :REG CLI Location: US Problems Associated Problem List Diagnoses (1) Abdominal ascites: Multi Select Codes Radiology Radiology US Procedures: 24099 Paracentesis Operative Report (Standard) Operative Information Date of Procedure: 09/29/24 Pre-Operative Diagnosis: Abdominal ascites Post-Operative Diagnosis: Abdominal ascites Surgery/Procedure Performed: Ultrasound-guided paracentesis rodent exterminator: No Type of Anesthesia: Local Procedure Start [...] the peritoneal cavity was accessed with a 5-Tunisian paracentesis needle/catheter system. The trocar was removed. [...] No Primary Care Physician; DIANE CALLAHAN~ Signed [facility]02-02-2025 Evaluation note* Diagnosis Onset Date Resolution Status [...] inactive Fe bruary 2024 1:46am Hyperbilirubinemia inactive Februa ry 2024 1:46am Hypotension inactive September 05, 2024 1:46am 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) inactive September 05, 025 1:46am Obesity (BMI 30-39.9) inactive Feb ary 2024 1:46am ABBY on CPAP inactive September 05, 2024 1:46am Cirrhosis of liver deleted ry 2024 1:46am Abdominal ascites acute uar 2024 9:35am Clostridium difficile colitis acute October [...] 28, 2024 4:51pm UTI (urinary tract infection) resol ed November 28, 2024 4:51pm Acute kidney injury acute January 02, 2025 6:06am Fall acute January 02, 2025 6:06am [facility] Work Phone: 1(925) 802-306402-02-2025 Evaluation note* Diagnosis Onset Date Resolution Status [...] inactive uar 2024 1:46am Chronic hypotension inactive Febru ace 2024 1:46am Hepatic encephalopathy inactive Fe bruary 2024 1:46am Hyperbilirubinemia inactive ua ry 2024 1:46am Hypotension inactive September 05, 2024 1:46am 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) inactive September 05, 1:46am Obesity (BMI 30-39.9) inactive Feb ruary [...] 2024 12:43am Chronic abdominal pain chronic [facility] 2024 12:43am Chronic back pain chronic [...] acic spine, non-traumatic acute January 09, 2:16pm Sepsis acute January 09, 2025 2:16pm [facility] Work Phone: 1(548) 917-982301-27-2025 Evaluation note* Diagnosis Onset Date Resolution Status Admit Date ISABEL (acute kidney injury) inactive August 29, 2024 10:09pm Hepatic encephalopathy inactive Ja nuary 2024 10:09pm Hypotension inactive August 29, 2024 10:09pm Ambulatory dysfunction acute bru2024 1:46am Generalized weakness [...] encephalopathy inactive bruary 2024 1:46am Hyperbilirubinemia inactive ua ry 2024 1:46am Hypotension inactive September 05, 2024 1:46am Liver cirrhosis secondary to BOYRE (nonalcoholic steatohepatitis) inactive September 05 1:46am Obesity (BMI 30-39.9) inactive Sep 1:46am ABBY on CPAP inactive September 05, 2024 1:46am Cirrhosis of liver deleted 2024 1:46am Abdominal ascites acute uar y 2024 9:35am [facility] Work Phone: 1(506) 675-542901-27-2025 Evaluation note* Diagnosis Onset Date Resolution Status [...] 05 1:46am Obesity (BMI 30-39.9) inactive Feb ru2024 1:46am ABBY on CPAP inactive September 05, 2024 1:46am Cirrhosis of liver deleted 2024 1:46am Abdominal ascites acute Februar y 2024 9:35am Acidosis, lactic acute October 292024 12:43am Acute hypotension acute October 032024 12:43am Acute UTI acute October 29 12:43am Diarrhea acute October 29 12:43am History of uric acid staghor n calculus acute October 29, 2024 12:43am Leukocytosis acute October 29, 2024 12:43am Obesity (BMI 30.0-34.9) acute M arch 2024 12:43am Sepsis acute October 29 12:43am Chronic abdominal pain chronic [facility] 2024 12:43am Chronic back pain chronic October 032024 12:43am [facility] Work Phone: 1(504) 985-831601-27-2025 Evaluation note* Diagnosis Onset Date Resolution Status [...] 05 025 1:46am Obesity (BMI 30-39.9) inactive Fe ru2024 1:46am ABBY on CPAP inactive September [...] 29 12:43am Chronic abdominal pain chronic [facility] 2024 12:43am Chronic back pain chronic October 032024 12:43am [facility] Work Phone: 1(844) 172-823101-27-2025 Evaluation note* Diagnosis Onset Date Resolution Status Admit Date ISABEL (acute kidney injury) inactive August 29, 2024 10:09pm Hepatic encephalopathy inactive Ja nuary 2024 10:09pm Hypotension inactive August 29, 2024 10:09pm Ambulatory dysfunction acute 2024 1:46am Generalized weakness acute Febr uary 2024 1:46am Staghorn calculus acute 2024 [...] 4:28am Staghorn calculus acute November 032024 4:28am [facility] Work Phone: 1(596) 321-353501-27-2025 Evaluation note* Diagnosis Onset Date Resolution Status [...] 05, 2024 1:46am Chronic back pain inactive Februa2024 1:46am Chronic hypotension inactive Febru ace 2024 1:46am Hepatic encephalopathy inactive Fe bruary 2024 1:46am Hyperbilirubinemia inactive ry 2024 1:46am Hypotension inactive September 05, 2024 1:46am 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) inactive September 05, 025 1:46am Obesity (BMI 30-39.9) inactive Feb ruary [...] infection) resolv ed November 28, 2024 4:51pm [facility] Work Phone: Discharge summary Author Herberth Carlson [facility] Note Date/Time November 21, 2024 4:[address] [facility] Medical Records Department [address] [place] [address] Emergency Department Summary 11/21/24 MR#: [id number] Acct: [id number] Name: FRANKLIN WIGGINS Rep #:[id number] : [...] discontinue his lactulose. He was recently admitted [facility] for cirrhosis and other issues, he [...] multiple attempts over couple hours. [facility] Medical History Diarrhea Sepsis Acidosis, lactic Acute [...] (Auto) 68.7 Lymph % (Auto) 13.9 L [place] % (Auto) 9.2 Eos % (Auto) 7.2 [...] Sl Cldy Urine pH 6.0 Ur Specific [place] 1.015 Urine Protein 500 H Urine Glucose [...] process. Follow-up to resolution recommended. Reading Location: [place] Management Discussion w/another healthcare provider: Hospitalist Discharge [...] Primary [Primary Care Provider] - Print Language: Liberian Disposition Disposition: Acute Care Hospital [facility] What to do if you have Problems For any increased pain, shortness of breath, bleeding, nausea or vomiting, chestpain, or any unexpected problems, contact your Primary Care Provider. Call [facility] ([phone]) or report to the closest Emergency Room. Call 911 if necessary. 11/21/24 0416 <Electronically signed by Herberth Carlson MD> Cosigner Signature (if applicable): CC: No Primary Care Physician ~ Signed [facility] Work Phone: Discharge summary Author Mina Blood [facility] Note Date/Time December 30, 2024 5:19a m [facility] Medical Records Department [address] [place] [address] Emergency Department Summary 12/30/24 MR#: [id number] Acct: [id number] Name: FRANKLIN WIGGINS Rep #:[id number] : [...] prior to the pain beginning. [facility] Medical History Weakness Diarrhea Sepsis Acidosis, lactic [...] mg tablet (Xifaxan) 550 mg PO BID diarr ea #60 tabs 09/02/24 11/28/24 Rx insulin [...] (Auto) 69.7 Lymph % (Auto) 14.0 L [place] % (Auto) 9.1 Eos % (Auto) 6.2 [...] Clarity Cloudy Urine pH 6.5 Ur Specific [place] 1.010 Urine Protein 100 H Urine Glucose [...] No evidence of acute disease. Reading Location: [facility] Chest x-ray as interpreted by the emergency [...] you have any further concerns Print Language: Liberian Disposition Disposition: Home, Self Care What to do if you have Problems For any increased pain, shortness of breath, bleeding, nausea or vomiting, chestpain, or any unexpected problems, contact your Primary Care Provider. Call [facility] ([phone]) or report to the closest Emergency Room. Call 911 if necessary. 12/30/24 0519 <Electronically signed by Mina Blood DO> Cosigner Signature (if applicable): CC: YG Elias ~ Signed [facility] Work Phone: Discharge summary Author Roddy Reeves [facility] Note Date/Time January 02, 2025 6:00a m [facility] Medical Records Department [address] [place] [address] Emergency Department Summary 01/02/25 MR#: [id number] Acct: [id number] Name: FRANKLIN WIGGINS Rep #:[id number] : [...] recently and was sent home. [facility] Medical History Weakness Diarrhea Sepsis Acidosis, lactic [...] mg tablet (Xifaxan) 550 mg PO BID [facility] ea #60 tabs 09/02/24 11/28/24 Rx [...] Patient following commands that he was at [facility] that wewere in the end of [...] (Auto) 68.0 Lymph % (Auto) 12.2 L [place] % (Auto) 11.9 H Eos % (Auto) [...] Clarity Turbid Urine pH 6.0 Ur Specific [place] 1.015 Urine Protein 100 H Urine Glucose [...] insufficiency fracture again noted, unchanged. Reading Location: [facility] Brain CT 01/02/25 03:55 IMPRESSION: No intracranial hemorrhage, mass effect or calvarial fracture. Moderate volume loss, atrophy again noted. Mild left maxillary sinus disease appears mildly decreased from the prior study. Reading Location: [facility] Cervical Spine CT 01/02/25 03:55 IMPRESSION: No fracture or malalignment. Multilevel spondylosis/discogenic change greatest at C5-6 Reading Location: [facility] Discharge Plan Triage Chief Complaint: Weakness ED [...] NP-C [Primary Care Provider] - Print Language: Liberian Disposition Disposition: Acute Care Hospital [facility] What to do if you have Problems For any increased pain, shortness of breath, bleeding, nausea or vomiting, chestpain, or any unexpected problems, contact your Primary Care Provider. Call [facility] ([phone]) or report to the closest Emergency Room. Call 911 if necessary. 01/02/25 0600 <Electronically signed by Roddy Reeves DO> Cosigner Signature (if applicable): CC: YG Elias ~ Signed [facility] Work Phone: Discharge summary Author Mina Blood [facility] Note Date/Time February 08, 2025 3:03a [facility] Medical Records Department [address] [place] [address] Emergency Department Summary 02/08/25 MR#: [id number] Acct: [id number] Name: FRANKLIN WIGGINS Rep #:[id number] : [...] constipation fevers chills or dysuria. [facility] Medical History (Updated 02/08/25 @ 03:03 by [...] surgery as fat necrosis is a nonemergent opk-dhpt-vaiqolszack process. The patient will be given pain [...] 72.8 H Lymph % (Auto) 12.8 L [place] % (Auto) 8.1 Eos % (Auto) 5.4 [...] double-J stent in place. Anasarca. Reading Location: [place] [address] Discharge Plan Triage Chief Complaint: Abd Pain [...] Ambulatory Orders: Paracentesis with US (Routine) Facility: [facility] - Location: [facility] Ordered By: Dr. Enriquez [place]cher Primary Care Provider: Jerald Sherwood Referrals: Jerald [...] you have any further concerns. Print Language: Liberian Disposition Disposition: Home, Self Care What to do if you have Problems For any increased pain, shortness of breath, bleeding, nausea or vomiting, chestpain, or any unexpected problems, contact your Primary Care Provider. Call [facility] ([phone]) or report to the closest Emergency Room. Call 911 if necessary. 02/08/25 0303 <Electronically signed by Mina Blood DO> Cosigner Signature (if applicable): CC: Dr. Jerald Sherwood MD ~ Signed [facility] Work Phone: Evaluation note* Diagnosis Other ascites- Primary Abdominal pain, generalized Cirrhosis of liver with ascites, unspecified hepatic cirrhosis type (Multi) Peripheral edema Edema Coagulopathy (Multi) Other and unspecified coagulation defects Hyperbilirubinemia Disorders of bilirubin excretion documented in this encounter [facility] Work Phone: Evaluation note* Diagnosis Metabolic dysfunction-associated steatohepatitis (MASH)- Primary [facility]* Diagnosis Liver transplant candidate- Primary Metabolic dysfunction-associated steatohepatitis (MASH) [facility] Diagnosis Pre-transplant evaluation for liver transplant- Primary documented in this encounter [facility] note* Diagnosis Liver transplant candidate- Primary Pre-operative clearance Preoperative examination, unspecified documented in this encounter [facility] note* Diagnosis Screening for genitourinary condition Screening for other and unspecified genitourinary condition [facility] Author Buster Fuchs [facility] Note Date/Time January 02, 2025 6:44a m [facility] Medical Records Department [address] [place] [address] H&P Exam - Hospitalist 01/02/25 0556 MR#: [id number] Acct: [id number] Name: FRANKLIN WIGGINS Rep #:[id number] : 1965 59 From: Buster duarte MD PCP: YG Pena Status:ADM I N Location: [place] [address] HPI - General General Date of Admission: 01/02/25 HPI Narrative FRANKLIN WIGGINS, is a 59 M who presents to the hospital with weakness and a fall. He did not hit his head or lose consciousness. He has had an extensive recent medical history with cirrhosis and UTI with staghorn calculus, he was in the ICUin October. 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 Was not considered to be a liver transplant candidate and was placed on anticoagulation. He has had a couple of readmissions for weakness and debility. [place] to possibly have aUTI given a staghorn [...] Heis receiving potassium infusion in the ER. [facility] Medical History Weakness Diarrhea Sepsis Acidosis, lactic [...] (Auto) 68.0, Lymph % (Auto) 12.2 L, [place] % (Auto) 11.9 H, Eos % (Auto) [...] insufficiency fracture again noted, unchanged. Reading Location: [facility] Brain CT 01/02/25 03:55 IMPRESSION: No intracranial hemorrhage, mass effect or calvarial fracture. Moderate volume loss, atrophy again noted. Mild left maxillary sinus disease appears mildly decreased from the prior study. Reading Location: [facility] Cervical Spine CT 01/02/25 03:55 IMPRESSION: No fracture or malalignment. Multilevel spondylosis/discogenic change greatest at C5-6 Reading Location: [facility] Assessment & Plan Assessment/Plan (1) Fall: (2) [...] once verified Charges/Coding Visit Charges Inpatient E&M: 53986 Init Hosp L2 01/02/25 0644 <Electronically signed by Buster Fuchs MD> Cosigner Signature (if applicable): CC: YG Elias; Dr. Buster Fuchs MD~ Signed [facility] Work Phone: Hospital Discharge instructions* Attachments The following attachments cannot be sent through Care Everywhere. * Cirrhosis (Liberian) * Abdominal pain (Liberian) [facility] Work Phone: Hospital Discharge instructions Additional Instructions [...] the ER should [facility] have any [facility] Work Phone: Hospital Discharge instructionsAdditional [...] the ER should you have any further concerns.[facility] Work Phone: Hospital Discharge instructionsAdditional Instructions Thank you for trusting us with your care today! Please take Tylenol (2 pills, 650 mg), ibuprofen (2 pills, 400 mg) every 6 hours as needed for pain and fever control. Please return to the emergency department if your symptoms change or worsen. Please follow with your primary care physician for further outpatient evaluation and management.[facility] Work Phone: Reason for referral (narrative)No reason for referral information availableWMemorial Health [facility] Work Phone: Summary Purpose Family [...] Will No August 21 2:51pm Power of Recreational Vehicle Resort Manager No August 21, 2024 2:51pm Living Will No August 30 12:39am Power of Recreational Vehicle Resort Manager No August 30, 2024 12:39am Living Will No September 05 4:42am Power of Recreational Vehicle Resort Manager No September 05, 2024 4:42am Advance Directive Response Recorded Date/ Time Living Will No August 21 2:51pm Do you have a Healthcare Power of Recreational Vehicle Resort Manager? No August 21, 2024 2:51pm Living Will No August 30 12:39am Do you have a Healthcare Power of Recreational Vehicle Resort Manager? No August 30, 2024 12:39am Living Will No September 05 4:42am Do you have a Healthcare Power of Recreational Vehicle Resort Manager? No September 05, 2024 4:42am Living Will No October 28, 2024 5:24pm Do you have a Healthcare Power of Recreational Vehicle Resort Manager? No October 28, 2024 5:24pm Advance Directive Response Recorded Date/ Time Living Will No August 21 2:51pm Do you have a Healthcare Power of Recreational Vehicle Resort Manager? No August 21, 2024 2:51pm Living Will No August 30 12:39am Do you have a Healthcare Power of Recreational Vehicle Resort Manager? No August 30, 2024 12:39am Living Will No September 05 4:42am Do you have a Healthcare Power of Recreational Vehicle Resort Manager? No September 05, 2024 4:42am Living Will No October 29, 2024 1:46am Do you have a Healthcare Power of Recreational Vehicle Resort Manager? No October 29, 2024 1:46am Date Activated Date Inactivated Comments 11/11/2024 7:22 AM Question Answer Comments Full Code Order Discussed With: Patient Date Activated Date Inactivated Comments 11/11/2024 7:22 AM Advance Directive Response Recorded Date/ Time Living Will No August 21 2:51pm Do you have a Healthcare Power of Recreational Vehicle Resort Manager? No August 21, 2024 2:51pm Living Will No August 30 12:39am Do you have a Healthcare Power of Recreational Vehicle Resort Manager? No August 30, 2024 12:39am Living Will No September 05 4:42am Do you have a Healthcare Power of Recreational Vehicle Resort Manager? No September 05, 2024 4:42am Living Will No October 29, 2024 1:46am Do you have a Healthcare Power of Recreational Vehicle Resort Manager? No October 29, 2024 1:46am Living Will Yes November 21, 2024 1:32am Do you have a Healthcare Power of Recreational Vehicle Resort Manager? Yes November 21, 2024 1:32am Name of Medical Power of Recreational Vehicle Resort Manager anne Hernandez November 21, 2024 1:32am Advance Directive Response Recorded Date/ Time Living Will No August 21 2:51pm Do you have a Healthcare Power of Recreational Vehicle Resort Manager? No August 21, 2024 2:51pm Living Will No August 30 12:39am Do you have a Healthcare Power of Recreational Vehicle Resort Manager? No August 30, 2024 12:39am Living Will No September 05 4:42am Do you have a Healthcare Power of Recreational Vehicle Resort Manager? No September 05, 2024 4:42am Living Will No October 29, 2024 1:46am Do you have a Healthcare Power of Recreational Vehicle Resort Manager? No October 29, 2024 1:46am Living Will Yes November 21, 2024 5:32am Do you have a Healthcare Power of Recreational Vehicle Resort Manager? Yes November 21, 2024 5:32am Name of Medical Power of Recreational Vehicle Resort Manager anne Hernandez November 21, 2024 5:32am Do you have a Healthcare Power of Recreational Vehicle Resort Manager? No November 28, 2024 5:49pm Advance Directive Response Recorded Date/ Time Living Will No August 30 12:39am Do you have a Healthcare Power of Recreational Vehicle Resort Manager? No August 30, 2024 12:39am Living Will No September 05 4:42am Do you have a Healthcare Power of Recreational Vehicle Resort Manager? No September 05, 2024 4:42am Living Will No October 29, 2024 1:46am Do you have a Healthcare Power of Recreational Vehicle Resort Manager? No October 29, 2024 1:46am Living Will Yes November 21, 2024 5:32am Do you have a Healthcare Power of Recreational Vehicle Resort Manager? Yes November 21, 2024 5:32am Name of Medical Power of Recreational Vehicle Resort Manager anne Hernandez November 21, 2024 5:32am Do you have a Healthcare Power of Recreational Vehicle Resort Manager? No November 28, 2024 5:49pm Advance Directive Response Recorded Date/ Time Living Will No August 30 12:39am Do you have a Healthcare Power of Recreational Vehicle Resort Manager? No August 30, 2024 12:39am Living Will No September 05 4:42am Do you have a Healthcare Power of Recreational Vehicle Resort Manager? No September 05, 2024 4:42am Living Will No October 29, 2024 1:46am Do you have a Healthcare Power of Recreational Vehicle Resort Manager? No October 29, 2024 1:46am Living Will Yes November 21, 2024 5:32am Do you have a Healthcare Power of Recreational Vehicle Resort Manager? Yes November 21, 2024 5:32am Name of Medical Power of Recreational Vehicle Resort Manager anne Hernandez November 21, 2024 5:32am Do you have a Healthcare Power of Recreational Vehicle Resort Manager? No November 28, 2024 5:49pm Do you have a Healthcare Power of Recreational Vehicle Resort Manager? No December 26, 2024 10:02am Advance Directive Response Recorded Date/ Time Living Will No August 30 12:39am Do you have a Healthcare Power of Recreational Vehicle Resort Manager? No August 30, 2024 12:39am Living Will No September 05 4:42am Do you have a Healthcare Power of Recreational Vehicle Resort Manager? No September 05, 2024 4:42am Living Will No October 29, 2024 1:46am Do you have a Healthcare Power of Recreational Vehicle Resort Manager? No October 29, 2024 1:46am Living Will Yes November 21, 2024 5:32am Do you have a Healthcare Power of Recreational Vehicle Resort Manager? Yes November 21, 2024 5:32am Name of Medical Power of Recreational Vehicle Resort Manager anne Hernandez November 21, 2024 5:32am Do you have a Healthcare Power of Recreational Vehicle Resort Manager? No November 28, 2024 5:49pm Do you have a Healthcare Power of Recreational Vehicle Resort Manager? No December 26, 2024 10:02am Do you have a Healthcare Power of Recreational Vehicle Resort Manager? No December 30, 2024 1:06am Advance Directive Response Recorded Date/ Time Do you have a Healthcare Power of Recreational Vehicle Resort Manager? No January 02, 2025 2:59am Living Will No September 05 4:42am Do you have a Healthcare Power of Recreational Vehicle Resort Manager? No September 05, 2024 4:42am Living Will No October 29, 2024 1:46am Do you have a Healthcare Power of Recreational Vehicle Resort Manager? No October 29, 2024 1:46am Living Will Yes November 21, 2024 5:32am Do you have a Healthcare Power of Recreational Vehicle Resort Manager? Yes November 21, 2024 5:32am Name of Medical Power of Recreational Vehicle Resort Manager anne Hernandez November 21, 2024 5:32am Do you have a Healthcare Power of Recreational Vehicle Resort Manager? No November 28, 2024 5:49pm Do you have a Healthcare Power of Recreational Vehicle Resort Manager? No December 26, 2024 10:02am Do you have a Healthcare Power of Recreational Vehicle Resort Manager? No December 30, 2024 1:06am Advance Directive Response Recorded Date/ Time Do you have a Healthcare Power of Recreational Vehicle Resort Manager? No January 02, 2025 8:14am Living Will No September 05 4:42am Do you have a Healthcare Power of Recreational Vehicle Resort Manager? No September 05, 2024 4:42am Living Will No October 29, 2024 1:46am Do you have a Healthcare Power of Recreational Vehicle Resort Manager? No October 29, 2024 1:46am Living Will Yes November 21, 2024 5:32am Do you have a Healthcare Power of Recreational Vehicle Resort Manager? Yes November 21, 2024 5:32am Name of Medical Power of Recreational Vehicle Resort Manager anne Hernandez November 21, 2024 5:32am Do you have a Healthcare Power of Recreational Vehicle Resort Manager? No November 28, 2024 5:49pm Do you have a Healthcare Power of Recreational Vehicle Resort Manager? No December 26, 2024 10:02am Do you have a Healthcare Power of Recreational Vehicle Resort Manager? No December 30, 2024 1:06am Advance Directive Response Recorded Date/ Time Do you have a Healthcare Power of Recreational Vehicle Resort Manager? No January 02, 2025 8:14am Living Will No September 05 4:42am Do you have a Healthcare Power of Recreational Vehicle Resort Manager? No September 05, 2024 4:42am Living Will No October 29, 2024 1:46am Do you have a Healthcare Power of Recreational Vehicle Resort Manager? No October 29, 2024 1:46am Living Will Yes November 21, 2024 5:32am Do you have a Healthcare Power of Recreational Vehicle Resort Manager? Yes November 21, 2024 5:32am Name of Medical Power of Recreational Vehicle Resort Manager anne Hernandez November 21, 2024 5:32am Do you have a Healthcare Power of Recreational Vehicle Resort Manager? No November 28, 2024 5:49pm Do you have a Healthcare Power of Recreational Vehicle Resort Manager? No December 26, 2024 10:02am Do you have a Healthcare Power of Recreational Vehicle Resort Manager? No December 30, 2024 1:06am Do you have a Healthcare Power of Recreational Vehicle Resort Manager? No January 09, 2025 10:10am Advance Directive Response Recorded Date/ Time Do you have a Healthcare Power of Recreational Vehicle Resort Manager? No January 02, 2025 8:14am Living Will No October 29, 2024 1:46am Do you have a Healthcare Power of Recreational Vehicle Resort Manager? No October 29, 2024 1:46am Living Will Yes November 21, 2024 5:32am Do you have a Healthcare Power of Recreational Vehicle Resort Manager? Yes November 21, 2024 5:32am Name of Medical Power of Recreational Vehicle Resort Manager anne Hernandez November 21, 2024 5:32am Do you have a Healthcare Power of Recreational Vehicle Resort Manager? No November 28, 2024 5:49pm Do you have a Healthcare Power of Recreational Vehicle Resort Manager? No December 26, 2024 10:02am Do you have a Healthcare Power of Recreational Vehicle Resort Manager? No December 30, 2024 1:06am Do you have a Healthcare Power of Recreational Vehicle Resort Manager? No January 09, 2025 3:31pm Advance Directive Response Recorded Date/ Time Do you have a Healthcare Power of Recreational Vehicle Resort Manager? No January 02, 2025 8:14am Do you have a Healthcare Power of Recreational Vehicle Resort Manager? No January 28, 2025 3:02am Living Will No October 29, 2024 1:46am Do you have a Healthcare Power of Recreational Vehicle Resort Manager? No October 29, 2024 1:46am Living Will Yes November 21, 2024 5:32am Do you have a Healthcare Power of Recreational Vehicle Resort Manager? Yes November 21, 2024 5:32am Name of Medical Power of Recreational Vehicle Resort Manager anne Hernandez November 21, 2024 5:32am Do you have a Healthcare Power of Recreational Vehicle Resort Manager? No November 28, 2024 5:49pm Do you have a Healthcare Power of Recreational Vehicle Resort Manager? No December 26, 2024 10:02am Do you have a Healthcare Power of Recreational Vehicle Resort Manager? No December 30, 2024 1:06am Do you have a Healthcare Power of Recreational Vehicle Resort Manager? No January 09, 2025 3:31pm Advance Directive Response Recorded Date/ Time Do you have a Healthcare Power of Recreational Vehicle Resort Manager? No January 02, 2025 8:14am Do you have a Healthcare Power of Recreational Vehicle Resort Manager? No January 28, 2025 3:02am Living Will No October 29, 2024 1:46am Do you have a Healthcare Power of Recreational Vehicle Resort Manager? No October 29, 2024 1:46am Living Will Yes November 21, 2024 5:32am Do you have a Healthcare Power of Recreational Vehicle Resort Manager? Yes November 21, 2024 5:32am Name of Medical Power of Recreational Vehicle Resort Manager anne Hernandez November 21, 2024 5:32am Do you have a Healthcare Power of Recreational Vehicle Resort Manager? No November 28, 2024 5:49pm Do you have a Healthcare Power of Recreational Vehicle Resort Manager? No December 26, 2024 10:02am Do you have a Healthcare Power of Recreational Vehicle Resort Manager? No December 30, 2024 1:06am Do you have a Healthcare Power of Recreational Vehicle Resort Manager? No January 09, 2025 3:31pm Do you have a Healthcare Power of Recreational Vehicle Resort Manager? No February 07, 2025 10:20pm Advance Directive Response Recorded Date/ Time Do you have a Healthcare Power of Recreational Vehicle Resort Manager? No January 02, 2025 8:14am Do you have a Healthcare Power of Recreational Vehicle Resort Manager? No January 28, 2025 3:02am Living Will No October 29, 2024 1:46am Do you have a Healthcare Power of Recreational Vehicle Resort Manager? No October 29, 2024 1:46am Living Will Yes November 21, 2024 5:32am Do you have a Healthcare Power of Recreational Vehicle Resort Manager? Yes November 21, 2024 5:32am Name of Medical Power of Recreational Vehicle Resort Manager anne Hernandez November 21, 2024 5:32am Do you have a Healthcare Power of Recreational Vehicle Resort Manager? No November 28, 2024 5:49pm Do you have a Healthcare Power of Recreational Vehicle Resort Manager? No December 26, 2024 10:02am Do you have a Healthcare Power of Recreational Vehicle Resort Manager? No December 30, 2024 1:06am Do you have a Healthcare Power of Recreational Vehicle Resort Manager? No January 09, 2025 3:31pm Do you have a Healthcare Power of Recreational Vehicle Resort Manager? No February 07, 2025 10:20pm Do you have a Healthcare Power of Recreational Vehicle Resort Manager? No February 13, 2025 4:40pm Advance Directive Response Recorded Date/ Time Do you have a Healthcare Power of Recreational Vehicle Resort Manager? No January 02, 2025 8:14am Do you have a Healthcare Power of Recreational Vehicle Resort Manager? No January 28, 2025 3:02am Living Will No October 29, 2024 1:46am Do you have a Healthcare Power of Recreational Vehicle Resort Manager? No October 29, 2024 1:46am Living Will Yes November 21, 2024 5:32am Do you have a Healthcare Power of Recreational Vehicle Resort Manager? Yes November 21, 2024 5:32am Name of Medical Power of Recreational Vehicle Resort Manager anne Hernandez November 21, 2024 5:32am Do you have a Healthcare Power of Recreational Vehicle Resort Manager? No November 28, 2024 5:49pm Do you have a Healthcare Power of Recreational Vehicle Resort Manager? No December 26, 2024 10:02am Do you have a Healthcare Power of Recreational Vehicle Resort Manager? No December 30, 2024 1:06am Do you have a Healthcare Power of Recreational Vehicle Resort Manager? No January 09, 2025 3:31pm Do you have a Healthcare Power of Recreational Vehicle Resort Manager? No February 07, 2025 10:20pm Do you have a Healthcare Power of Recreational Vehicle Resort Manager? No February 13, 2025 4:40pm Do you have a Healthcare Power of Recreational Vehicle Resort Manager? No February 16, 2025 6:30pm Advance Directive Response Recorded Date/ Time Do you have a Healthcare Power of Recreational Vehicle Resort Manager? No January 02, 2025 8:14am Do you have a Healthcare Power of Recreational Vehicle Resort Manager? No January 28, 2025 3:02am Living Will No October 29, 2024 1:46am Do you have a Healthcare Power of Recreational Vehicle Resort Manager? No October 29, 2024 1:46am Living Will Yes November 21, 2024 5:32am Do you have a Healthcare Power of Recreational Vehicle Resort Manager? Yes November 21, 2024 5:32am Name of Medical Power of Recreational Vehicle Resort Manager anne Hernandez November 21, 2024 5:32am Do you have a Healthcare Power of Recreational Vehicle Resort Manager? No November 28, 2024 5:49pm Do you have a Healthcare Power of Recreational Vehicle Resort Manager? No December 26, 2024 10:02am Do you have a Healthcare Power of Recreational Vehicle Resort Manager? No December 30, 2024 1:06am Do you have a Healthcare Power of Recreational Vehicle Resort Manager? No January 09, 2025 3:31pm Do you have a Healthcare Power of Recreational Vehicle Resort Manager? No February 07, 2025 10:20pm Do you have a Healthcare Power of Recreational Vehicle Resort Manager? No February 13, 2025 4:40pm Do you have a Healthcare Power of Recreational Vehicle Resort Manager? No February 16, 2025 7:47pm Chief Complaint and Reason for Visit Chief [...] 10:48am SEPSIS, UTI, DIARRHEA & ABDOMINAL PAIN [facility] 2024 12:43am Reason for Visit Admit [...] 42024 9:36am SEPSIS WITH [facility]AG[facility]ORN CALCULI September 5t h2024 5:04pm SEPSIS WITH [facility] CALCULI September 62024 12:41pm SEPSIS WITH [facility] CALCULI September 72024 4:50pm SEPSIS WITH ST[facility] CALCULI September 10:36am [...] SEPSIS, UTI, DIARRHEA & ABDOMINAL PAIN M 2024 9:52am SEPSIS, UTI, DIARRHEA & ABDOMINAL [...] Chronic anemia February 16, 2025 6:26 pm Chief Complaint Admit Date SEPSIS, UTI, [...] pm DECOMPENSATED CIRRHOSIS February 16, 2025 6:26pm DECOMPENSATED CIRRHOSIS February 17, 2025 11:29am Reason for Visit Admit Date Clostridium difficile [...] Cirrhosis of liver with ascites February 6:26pm Decompensated cirrhosis February 16, 2025 6:26pm Elevated liver enzymes February 16, 2025 [...] Thrombus Procedures Evaluate and treat HOSP MAIN [id number] [id number] Phone: tel: Referral ID Status Reason Start Date Expiration Date Visits Re quested Visits Authorized [id number] 1 Reason Comments Abdominal Pain Patient [...] (morning and late afternoon), First dose on 3/3/25 at 1720 1848 (Given - Provid er: [...] On Fri10/04/24 at 1525, For 1 dose 154 (Given - Provid er: Day Jones [...] 2024 End: November 11, 2024 Yue Delgadillo PRINCIPAL EXAMINER, PRINCIPAL EXAMINER-C Other Provider Active St art: October 29, [...] Star t: October 30, 2024 Dr. Mason Samaon DO Other Provider Active St art: October [...] Sta rt: November 10, 2024 Yue Delgadillo PRINCIPAL EXAMINER, PRINCIPAL EXAMINER-C Other Provider Active St art: November 10, [...] Active Start: November 23, 2024 Dr. Jae Mosteller , DO Admit Provider Active Start: November [...] Member Role Status Dates Josy Pastorhof , PRINCIPAL EXAMINER-C Primary Care Provider Active Start: December 07, 2024 End: December 07, 2024 Josy Pastorhof , PRINCIPAL EXAMINER-C Attending Provider Active Start: December 07, 2024 End: December 07, 2024 Team Status: Inactive Member Role Status Dates Josy Tannhof , PRINCIPAL EXAMINER-C Primary Care Provider Active Start: December 15, 2024 End: December 15, 2024 Josy Pastorhof , PRINCIPAL EXAMINER-C Attending Provider Active Start: December 15, 2024 End: December 15, 2024 Josy Tannhof , PRINCIPAL EXAMINER-C Referring Provider Active Start: December 15, 2024 End: December 15, 2024 Team Status: Inactive Member Role Status Dates Josy Tannhof , PRINCIPAL EXAMINER-C Primary Care Provider Active Start: December 26, 2024 End: December 26, 2024 Dr. Boone Carvajal , Attending Provider Active Start: December 26, 2024 End: December 26, 2024 Dr. Boone Carvajal , Emergency Provider Active Start: December 26, 2024 End: December 26, 2024 Team Status: Inactive Member Role Status Dates Josy Tannhof , PRINCIPAL EXAMINER-C Primary Care Provider Active Start: December 30, 2024 End: December 30, 2024 Dr. Mina Blood , Attending Provider Active Start: December 30, 2024 End: December 30, 2024 Dr. Mina Blood , Emergency Provider Active Start: December 30, 2024 End: December 30, 2024 Team Status: Inactive Member Role Status Dates Josy Tannhof , PRINCIPAL EXAMINER-C Primary Care Provider Active Start: January 02, [...] NP-C Primary Care Provider Active Start: January 03, [...] Pena Primary Care Provider Active Start: January 09, [...] Status: Active Member Role Status Dates Josy Eilas NP-[place] Primary Care Provider Active Start: January 10, 2025 Dr. Breann Mendez DO Emergency Provider Active S tart: January 10, 2025 Dr. Yaritza Leo DO Admit Provider Active Start : January 10, 2025 Dr. Yaritza eLo DO Other Provider [...] Active Member Role Status Dates Josy Elias PRINCIPAL EXAMINER-C Primary Care Provider Active Start: January 11, [...] Active Member Role Status Dates Josy Elias PRINCIPAL EXAMINER-C Primary Care Provider Active Start: January 11, [...] NPC Primary Care Provider Active Start: January 13, [...] Active Member Role Status Dates Josy Elias NPP[place] Primary Care Provider Active Start: January 14, [...] Active Member Role Status Dates Josy Elias NPP[place] Primary Care Provider Active Start: January 15, [...] Active Member Role Status Dates Josy Elias NP-[place] Primary Care Provider Active Start: January 16, [...] Active Member Role Status Dates Josy Elias NP-[place] Primary Care Provider Active Start: January 18, 2025 Dr. Breann Mendez DO Emergency Provider Active S tart: January 18, 2025 Dr. Yaritza Leo DO Admit Provider Active Start : January 18, 2025 Dr. Yaritza Leo DO Other Provider Active Start : January 18, 2025 Dr. Jefferson Malave MD Other Provider Active St art: January 18, 2025 Dr. Alyeda Bautista MD Other Provider Active Star t: January 18, 2025 Dr. Anurag Irene MD Attending Provider Active Start: January 18, 2025 Dr. Anurag Irene MD Other Provider Active Sta rt: January 18, 2025 Dr. Cielo Tovar MD Other Provider Active St art: January 18, 2025 Team Status: Active Member Role Status Dates Josy Elias PRINCIPAL EXAMINER-C Primary Care Provider Active Start: January 19, [...] : January 21, 2025 Dr. Yaritza Leo , Other Provider Active Start : January 21, [...] 02, 2024 Dr. Luis Carlos Anderson , Emergency Provider Active Start: August 29, 2024 [...] Star t: August 30, 2024 Dr. Gwendolyn oLgan MD Other Provider Active Sta rt: August [...] Active Start: August 31, 2024 Dr. Christian Abid MD Other Provider Active Start: August 31, [...] Active Start : August 31, 2024 Dr. Btety Pruett MD Other Provider Active Star t: [...] art: September 01, 2024 Dr. Rick Carlin , Other Provider Active S tart: September 01, 2024 Dr. Josefina Khan MD Other Provider Active Start: September 01, 2024 Dr. Niranjan Li , Attending Provider Active Start: September 01, 2024 Team Status: Active Member Role Status Dates No Primary Care Physician Primary Care Provider Active Start: September 02, 2024 Dr. Luis Carlos Anderson , Emergency Provider Active Start: September 02, 2024 [...] t: September 06, 2024 Dr. Mason Samano Other Provider Active St art: September 06, [...] Active Start: September 08, 2024 Dr. Hill de Kyle , DO Admit Provider Active Start: September 08, [...] Start: September 11, 2024 Dr. Hill Caro , DO Admit Provider Active Start: September 11, 2024 Dr. Hill Caro DO Other Provider Active Start: September 11, 2024 Dr. Foster Rascon MD Other Provider Active Start: September 11, 2024 Dr. Thai Thurston MD Other Provider Active Start: September 11, 2024 Dr. Josefina Khan MD Other Provider Active Start: September 11, 2024 Dr. Jae Ash , Attending Provider Active Start: September 11, 2024 Dr. Jae Ash , DO Other Provider Active Start: September 11, 2024 Dr. Anurag Irene MD Other Provider Active Sta rt: September 11, 2024 Team Status: Active Member Role Status Dates No Primary Care Physician Primary Care Provider Active Start: September 12, 2024 Dr. Rachel Joiner , DO Emergency Provider Active Start: September 12, 2024 Dr. Hill Caro , DO Admit Provider Active Start: September 12, 2024 Dr. Hill Caro , DO Other [...] September 14, 2024 Dr. Hill Caro , Admit Provider Active Start: September 14, 2024 Dr. Hill Caro DO Other Provider Active Start: September 14, 2024 Dr. Anurag Irene MD Other Provider Active Sta rt: September 14, 2024 Dr. Boone Izquierdo DO Attending Provider Active Start: September 14, 2024 Dr. Boone Izquierdo DO Other Provider Active Star t: September 14, 2024 Dr. 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 Mina Blood , Emergency Provider Active Start: December 30, 2024 End: December 30, 2024 Team Status: Active Member Role Status Dates Josy Elias PRINCIPAL EXAMINER-C Primary Care Provider Active Start: January 02, 2025 Dr. Roddy Reeves DO Emergency Provider Active Start: January 02, 2025 Dr. Buster Fuchs MD Admit Provider Active Start: January 02, 2025 Dr. Buster Fuchs MD Attending Provider Active Start: January 02, 2025 Dr. Buster Fuchs MD Other Provider Active Start: January 02, 2025 Team Status: Active Member Role Status Dates Josy Elias PRINCIPAL EXAMINER-C Primary Care Provider Active Start: January 09, 2025 Dr. Breann Mendez DO Emergency Provider Active S tart: January 09, 2025 Dr. Yaritza Leo DO Admit Provider Active Start : January 09, 2025 Dr. Yaritza Leo DO Attending Provider Active S tart: January 09, 2025 Team Status: Active Member Role Status Dates Josy Elias PRINCIPAL EXAMINER-C Primary Care Provider Active Start: January 11, [...] End: November 11, 2024 Dr. Hill Caro , Admit Provider Active Start: October 29, 2024 [...] 2024 End: November 11, 2024 Yue Delgadillo PRINCIPAL EXAMINER, PRINCIPAL EXAMINER-C Other Provider Active St art: October 29, [...] Provider Active Start: October 29, 2024 Dr. Chrisitan Abdi MD Other Provider Active Start: October [...] Active Start: October 30, 2024 Dr. Bharathi Truijllo MD Other Provider Active Start : October [...] t: October 31, 2024 Dr. Bola Meraz , Other Provider Active Start : October 31, 2024 Dr. Hill Renee MD Other Provider Active Sta rt: October 31, 2024 Dr. Jeff Cornelius MD Other Provider Active St art: October 31, 2024 Dr. Yury Canas MD Other Provider Active S tart: October 31, 2024 Dr. Dary Lund MD Other Provider Active Start: October 31, 2024 Dr. Bhaarthi Trujillo MD Other Provider Active Start : [...] Active Start: November 01, 2024 Dr. Foster Rascno MD Other Provider Active Start: November 01, [...] Sta rt: November 10, 2024 Yue Delgadillo PRINCIPAL EXAMINER, PRINCIPAL EXAMINER-C Other Provider Active St art: November 10, [...] 28, 2024 End: December 02, 2024 Dr. Rahcel Joiner , Emergency Provider Active Start: November [...] Member Role/Relationship Status Dates Josy Tannhof , PRINCIPAL EXAMINER-C Primary Care Provider Active Start: December 07, 2024 End: December 07, 2024 Josy Tannhof , PRINCIPAL EXAMINER-C Attending Provider Active Start: December 07, 2024 End: December 07, 2024 Team Status: Inactive Member Role/Relationship Status Dates Josy Tannhof , PRINCIPAL EXAMINER-C Primary Care Provider Active Start: December 15, 2024 End: December 15, 2024 Josy Pastorhof , PRINCIPAL EXAMINER-C Attending Provider Active Start: December 15, 2024 End: December 15, 2024 Josy Tannhof , PRINCIPAL EXAMINER-C Referring Provider Active Start: December 15, 2024 End: December 15, 2024 Team Status: Inactive Member Role/Relationship Status Dates Josy Tannhof , PRINCIPAL EXAMINER-C Primary Care Provider Active Start: December 26, 2024 End: December 26, 2024 Dr. Boone Carvajal , Attending Provider Active Start: December 26, 2024 End: December 26, 2024 Dr. Boone Carvajal , Emergency Provider Active Start: December 26, 2024 End: December 26, 2024 Team Status: Inactive Member Role/Relationship Status Dates Josy Tannhof , PRINCIPAL EXAMINER-C Primary Care Provider Active Start: December 30, 2024 End: December 30, 2024 Dr. Mina Blood , Attending Provider Active Start: December 30, 2024 End: December 30, 2024 Dr. Mina Blood , DO Emergency Provider Active Start: December 30, 2024 End: December 30, 2024 Team Status: Inactive Member Role/Relationship Status Dates Josy Tannhof , PRINCIPAL EXAMINER-C Primary Care Provider Active Start: January 02, 2025 End: January 05, 2025 Dr. Roddy Reeves , Emergency Provider Active Start: January 02, 2025 [...] Active Member Role/Relationship Status Dates Josy Elias , PRINCIPAL EXAMINER-C Primary Care Provider Active Start: January 03, [...] Active Member Role/Relationship Status Dates Josy Elias , PRINCIPAL EXAMINER-C Primary Care Provider Active Start: January 04, [...] Active Member Role/Relationship Status Dates Josy Elias , PRINCIPAL EXAMINER-C Primary Care Provider Active Start: January 05, [...] Member Role/Relationship Status Dates Josydominique Elias , PRINCIPAL EXAMINER-C Primary Care Provider Active Start: January 09, [...] Active Member Role/Relationship Status Dates Josy Elias PRINCIPAL EXAMINER-C Primary Care Provider Active Start: January 11, [...] Active Member Role/Relationship Status Dates Josy Elias PRINCIPAL EXAMINER-C Primary Care Provider Active Start: January 13, [...] tart: January 14, 2025 Dr. Yaritza Leo , Admit Provider Active Start : January 14, [...] Active Member Role/Relationship Status Dates Josy Elias PRINCIPAL EXAMINER-C Primary Care Provider Active Start: January 15, [...] Active Member Role/Relationship Status Dates Josy Elias PRINCIPAL EXAMINER-C Primary Care Provider Active Start: January 17, [...] Active Member Role/Relationship Status Dates Josy Elias PRINCIPAL EXAMINER-C Primary Care Provider Active Start: January 19, [...] : January 21, 2025 Dr. Yaritza Leo , DO Other [...] End: January 31, 2025 Dr. Boone Izquierdo , Admit Provider Active Star t: January 28, 2025 End: January 31, 2025 Dr. Boone Izquierdo , Other Provider Active Star t: January 28, [...] Start: January 29, 2025 Dr. Boone Izquierdo DO Admit Provider [...] January 30, 2025 Dr. Yaritza Leo , Attending Provider Active S tart: January 30, [...] , Attending Provider Active S tart: January 31, [...] February 11, 2025 Dr. Mina Blood DO Attending Provider Active Start: February 11, [...] Provider Active Star t: February 11, 2025 BRITTANY OlsonC Attending Provider Active S tart: February 11, [...] Attending Provider Active Start: February 16, 2025 Team Status: Active Member Role/Relationship Status Dates YG Pena Primary Care Provider Active Team Status: Inactive Member Role/Relationship Status Dates Dr. Jerald Sherwood MD Primary Care Provider Active Start: February 11, 2025 End: February 11, 2025 Dr. Mina Blood DO Attending Provider Active Start: February 11, 2025 End: February 11, 2025 Dr. Mina Blood DO Referring Provider Active Start: February 11, 2025 End: February 11, 2025 Team Status: Active Member Role/Relationship Status Dates Dr. Alber Dunn MD Emergency Provider Active S tart: February 16, 2025 Dr. Jae Ash DO Admit Provider Active Start: February 16, 2025 Dr. Jae Ash DO Other Provider Active Start: February 16, 2025 Dr. Niranjan Li , DO Other Provider Active St art: February 16, 2025 Dr. Anurag Irene MD Attending Provider Active Start: February 16, 2025 YG Pena Primary Care Provider Active Start: February 16, 2025 Team Status: Active Member Role/Relationship Status Dates Dr. Jerald Sherwood MD Primary Care Provider Active Start: February 17, 2025 Dr. Alber Dunn MD Emergency Provider Active S tart: February 17, 2025 Dr. Jae Ash , DO Admit Provider Active Start: February 17, 2025 Dr. Jae Ash DO Other Provider Active Start: February 17, 2025 Dr. Anurag Irene MD Attending Provider Active Start: February 17, 2025 Dr. Anurag Irene MD Other Provider Active Sta rt: February 17, 2025 Dr. Niranjan Li , DO Other Provider Active St art: February 17, 2025 (unrecognized sect ion and content) No Status Records FoundNo Status Records FoundNo Status Records FoundNo Status Records Found INFORMATION SOURCE (unrecogn ized section and content) DATE CREATED AUTHOR 10/10/2024 [facility] DATE CREATED AUTHOR AUTHOR'S ORGANIZ ATION 12/13/2024 [facility] DATE CREATED AUTHOR AUTHOR'S ORGANIZ ATION 02/18/2025 [facility] DATE CREATED AUTHOR AUTHOR'S ORGANIZ ATION 02/22/2025 [facility] Source Comments (unrecognize d section and content) In the event this informatio n is protected by the Federal Confidentiality of Alcohol and Drug Abuse Patient Records regulations: The Federal rules restrict any use of the information to criminally investigate or prosecute any alcohol or drug abuse patient.[facility] the event this information is protected by the Federal Confidentiality of Alcohol and Drug Abuse Patient Records regulations: The Federal rules restrict any use of the information to criminally investigate or prosecute any alcohol or drug abuse patient.[facility] the event this information is protected by the Federal Confidentiality of Alcohol and Drug Abuse Patient Records regulations: The Federal rules restrict any use of the information to criminally investigate or prosecute any alcohol or drug abuse patient.[facility] the event this information is protected by the Federal Confidentiality of Alcohol and Drug Abuse Patient Records regulations: The Federal rules restrict any use of the information to criminally investigate or prosecute any alcohol or drug abuse patient.[facility] the event this information is protected by the Federal Confidentiality of Alcohol and Drug Abuse Patient Records regulations: The Federal rules restrict any use of the information to criminally investigate or prosecute any alcohol or drug abuse patient.[facility] the event this information is protected by the Federal Confidentiality of Alcohol and Drug Abuse Patient Records regulations: The Federal rules restrict any use of the information to criminally investigate or prosecute any alcohol or drug abuse patient.[facility] the event this information is protected by the Federal Confidentiality of Alcohol and Drug Abuse Patient Records regulations: The Federal rules restrict any use of the information to criminally investigate or prosecute any alcohol or drug abuse patient.[facility] the event this information is protected by the Federal Confidentiality of Alcohol and Drug Abuse Patient Records regulations: The Federal rules restrict any use of the information to criminally investigate or prosecute any alcohol or drug abuse patient.[facility] the event this information is protected by the Federal Confidentiality of Alcohol and Drug Abuse Patient Records regulations: The Federal rules restrict any use of the information to criminally investigate or prosecute any alcohol or drug abuse patient.[facility] the event this information is protected by the Federal Confidentiality of Alcohol and Drug Abuse Patient Records regulations: The Federal rules restrict any use of the information to criminally investigate or prosecute any alcohol or drug abuse patient.[facility] the event this information is protected by the Federal Confidentiality of Alcohol and Drug Abuse Patient Records regulations: The Federal rules restrict any use of the information to criminally investigate or prosecute any alcohol or drug abuse patient.[facility] FOR RECORDS PERTAINING TO PATIENTS WHO [...] BE BASED ON THE PRIMARY CLINICAL RECORDS. [facility] [employer] [facility]. provides no warranty or guarantee of the accuracy or completeness of information in this document.
[2025-02-25 22:19] LABS: Neutrophil (Segs) 4 %
[2025-02-26 03:39] VITALS: BP 110/60; PULSE 80; RESP 18; TEMP 36.6; O2SAT 100
[2025-02-26 06:24] LABS: Hematocrit 26.0 % (40-54); Hemoglobin 8.9 g/dL (13.0-16.5); Immature Granulocytes Count 0.030 X10^3/uL (0.0-0.0); Mean Corp Hgb Conc 34.2 g/dL (32-36); Mean Corpuscular Volume 89.3 fL (80-94); Mean Platelet Vol. 11.9 fl (6.2-12.0); NRBC Flagged by Analyzer 0 % (0-5); POSITIVE MORPHOLOGY YES; Platelet Count 134 K/mm3 (150-450); RBC Distribution Width CV 21.4 % (11.6-14.6); RBC Distribution Width SD 67.5 fl (35.1-43.9); Red Blood Count 2.91 M/mm3 (4.6-6.2); White Blood Count 7.2 K/mm3 (4.4-11.0)
[2025-02-26 06:32] LABS: Prothrombin Time (Protime)PT. 23.7 SECONDS (11.7-14.9)
[2025-02-26 06:35] LABS: Differential Indicated SCAN CRITERIA MET
[2025-02-26 06:44] LABS: AST(SGOT) 78 U/L (<=37); Alanine Aminotransfer ALT/SGPT 50 U/L (<=46); Albumin, Serum 2.4 g/dL (3.5-5.0); Alkaline Phosphatase 258 U/L (40-129); Anion Gap 12 (5-15); BUN 13 mg/dL (4-19); BUN/Creat Ratio 12.9 RATIO (10-20); Calcium,Total 8.3 mg/dL (7.6-11.0); Carbon Dioxide 19.6 mmol/L (21.0-32.0); Chloride 102 mmol/L (98-108); Estimated Creatinine Clearance 86.83 ml/min (50-250); Globulin 3.6 g/dL (2.2-4.2); Glucose 269 mg/dL (70-99); Potassium 3.0 mmol/L (3.3-5.1)
[2025-02-26 07:11] LABS: Anisocytosis 2+; Differential Comment SCANNED
[2025-02-26 09:56] VITALS: BP 110/54; PULSE 81; RESP 18; TEMP 36.8; O2SAT 100
[2025-02-26] MEDS: Ceftriaxone 2 GM in 0.9% Normal Saline (50mL MB+) 50 ML IV (10:07)
--- NOTE | 2025-02-26 11:45 | CASEMGMT ---
Social Work Social Work attempted to meet w/pt. Pt aware that he is in the hospital, not aware what month it is. JEANNINE inquired if it would be okay to call his exwife Sylvia for further information, pt agreeable to this. SW did speak w/pt about completing POA documents at some point, pt would like to do this, wants to put Sylvia as POA, does not necessarily want his son on the document. SW will follow up w/pt when he is more alert and oriented. JEANNINE then called Sylvia to complete assessment. PCP: Josy Elias, pt still trying to get established w/Amrita Fields, samantha Friday at 1:30pm Specialists: None Pharmacy: [facility] Insurance/prescription coverage: [place] [employer] LNOK: Son Leopoldo, exwife Sylvia, ELEANOR Hernandez Living arrangements/prior level of function: Pt lives with ex- Sylvia, her significant other and landlord Jerald, brother in [facility]. The pt has a first floor set up with no steps into the home. Sylvia and family cook, clean, help with lower body dressing and shoes, and transportation. Pt is normally able to get up to the port a potty, sponge bathe, dress for the most part. Pt takes his own medication w/oversight from Sylvia. Sylvia states however that pt does not always take his medication. Sylvia also helps pt with his insulin. DME: Pt has a blood glucose monitor with supplies, bed side commode(port a potty), wheeled walker, cane, shower chair. Pt is not on home O2. HHC/SNF: Pt has been to [facility]. Sylvia thought pt had HHC, however it's actually [facility]. [facility] as per chart discharged pt as they feel his care needs exceed what can be done at home. Pt has not been able to get HHC in the past as he has not had a PCP. Plan: Home. Sylvia states pt does not want to go anywhere for short term rehab or intermediate care, pt wants to return home. PT/OT have been ordered and they are pending at the moment. Sylvia would like exercises to do w/pt at home. JEANNINE also spoke w/Sylvia about an AAoA referral and a Meals on Wheels referral, as Jerald had said that home delivered meals were supposed to start. SW will make a referral to [facility]. SW will continue to follow, to make sure home is appropriate d/c plan. Pt asked RN to speak w/SW, SW went back in, he asked SW more information about POA, and does want to complete the document. He would like the blank form. SW will give pt the blank form, and if his mentation continues to improve will see if pt can complete the form on Friday. PIERRE Tobias
--- NOTE | 2025-02-26 14:18 | NURSING ---
Phone call made to Sylvia for update no answer on phone.
[2025-02-26 15:48] VITALS: BP 122/78; PULSE 89; RESP 18; TEMP 36.7; O2SAT 100
--- NOTE | 2025-02-26 16:25 | PN.HOSP_ITS ---
Reason for Visit Chief Complaint: Altered mental status Subjective Subjective Patient was seen and examined today, he is alert and appropriate, he does complain of some back pain and some abdominal pain. The abdominal pain is nonspecific and is located in the mid abdomen area. I asked the patient what he takes at home for pain and he stated that he takes ibuprofen which I told him was not a good idea because of his liver disease. I have elected to place him on oxycodone for pain while he is in the hospital. It appeared that the patient had a CT of the abdomen and pelvis done on 02/13/2025 that showed a moderate amount of ascites which was minimally changed from the scan that was done on 02/07/2025. On that scan, there was also noted to be numerous unchanged findings including cirrhosis with stigmata of portal hypertension, left ureteral stent with a left staghorn calculus and cholelithiasis. Objective Data Objective Data Vital Signs: Vital Signs Temp Pulse Resp BP Pulse Ox O2 Del Method 98.1 F 89 18 122/78 H 100 Room Air 02/26/25 15:48 02/26/25 15:48 02/26/25 15:48 02/26/25 15:48 02/26/25 15:48 02/26/25 15:48 Oxygen Delivery Method Room Air Weight: 90.265 kg Body Mass Index (BMI) 31.9 Intake & Output: Intake and Output for Last 24 Hours 02/24/25 02/25/25 02/26/25 23:59 23:59 23:59 Intake Total 50 / 50 630 / 630 Balance 50 / 50 630 / 630 Lab / Micro Data 02/26/25 05:14 02/26/25 05:14 Labs: Laboratory Results - last 24 hr 02/25/25 15:40: Fluid Source ASCITES FLUID, Fluid Color YELLOW, Fluid Appearance SL CLDY, Fluid WBC 0.153, Fluid RBC 283, Fluid Tot Cell Count 0.207, Fld Polynuclear WBCs # 0.015, Fld Polynuclear WBCs % 9.9, Fluid Mononuclear WBCs 0.138, Fld Mononuclear WBCs % 90.1, Fluid Neutrophils 4, Fluid Lymphocytes 6, Fluid Monocytes 5, Fluid Macrophages 75, Fld Mesothelial Cells 10, Fl Pathologist Comment May follow, Fluid Comment 2 SEE COMMENT 02/25/25 15:48: Urine Color Red, Urine Clarity Cloudy, Urine pH 6.5, Ur Specific Ovalo 1.015, Urine Protein 100 H, Urine Glucose (UA) 100 H, Urine Ketones 5 H, Urine Occult Blood 250 H, Urine Nitrite Negative, Urine Bilirubin 3 H, Urine Urobilinogen Normal, Ur Leukocyte Esterase 500 H, Urine RBC > 100 SEEN, Urine WBC >100 SEEN, Ur Squamous Epith Cells 0 SEEN, Urine Bacteria 0 SEEN, Urine Mucus 0 SEEN, Urine Yeast 2+ 02/25/25 17:08: POC Glucose 192 H 02/25/25 21:45: POC Glucose 271 H 02/26/25 05:14: WBC 7.2, RBC 2.91 L, Hgb 8.9 L, Hct 26.0 L, MCV 89.3, MCH 30.6, MCHC 34.2, RDW Std Deviation 67.5 H, RDW Coeff of Francis 21.4 H, Plt Count 134 L, MPV 11.9, Immature Gran % (Auto) 0.400, Neut % (Auto) 64.4, Lymph % (Auto) 17.7 L, [place] % (Auto) 11.3 H, Eos % (Auto) 5.4 H, Baso % (Auto) 0.8, Absolute Neuts (auto) 4.6, Absolute Lymphs (auto) 1.27, Nucleated RBC % 0, Differential Comment SCANNED, Anisocytosis 2+, PT 23.7 H, INR 2.1, Sodium 133, Potassium 3.0 L, Chloride 102, Carbon Dioxide 19.6 L, Anion Gap 12, BUN 13, Creatinine 1.03, Estim Creat Clear Calc 86.83, Est GFR (MDRD) Non-Af 84, BUN/Creatinine Ratio 12.9, Glucose 269 H, Calcium 8.3, Total Bilirubin 5.33 H, AST 78 H, ALT 50 H, A lkaline Phosphatase 258 H, Total Protein 6.0, Albumin 2.4 L, Globulin 3.6, A lbumin/Globulin Ratio 0.7 L 02/26/25 06:31: POC Glucose 267 H 02/26/25 12:04: POC Glucose 344 H Micro: Microbiology 02/25/25 15:40 Fluid - Ascites Gram Stain - Final Physical Exam Const alert, oriented x3 and no apparent distress General Appearance: cooperative, well kempt and well developed Orientation / Consciousness: awake, oriented to person, oriented to place and oriented to time HEENT normocephalic, head/scalp atraumatic and moist oral mucous membranes Eyes PERRL, EOMs intact bilaterally and conjunctivae normal Neck supple, no JVD, thyroid normal and no carotid bruits General: trachea midline Resp normal respiratory effort, no retractions, no use of accessory muscles and clear to auscultation bilaterally Auscultation: Negative for rales, rhonchi or wheezes Cardio regular rate, regular rhythm, S1 normal heart sound, S2 normal heart sound, no murmurs, no rub and no gallops GI normal to inspection, nondistended, normoactive bowel sounds and soft to palpation GI Narrative: Patient's abdomen is mildly distended with diffuse tenderness throughout the mid abdomen. Extremity no clubbing, cyanosis or edema Skin no rashes or lesions noted General Skin Exam: no breakdown Neuro oriented x3, CN's II-XII intact bilaterally, moves all extremities, no focal motor deficits and no sensory deficits noted Sensorium / Orientation: awake and alert Speech: speech normal Psych affect normal Assessment & Plan Assessment/Plan (1) Acute hepatic encephalopathy: PLAN: Plan 1. Acute hepatic encephalopathy-patient will remain on lactulose and Xifaxan #2 diffuse abdominal pain-etiology unclear, it does not appear from the ascitic fluid that he is infected at this time, I will continue the Rocephin for now, I talked to urology who had placed a stent into the urethra in September of this year, Dr. Rascon stated that it could be the stent is causing the abdominal discomfort. #3 MASLD with cirrhosis-complicates care, management, recovery, and prognosis #4 staghorn calculus-a left ureteral stent was placed on 09/05/2024-it appears that he was sent to [facility] on 11/10/2024-it does not appear that they addressed the removal of the staghorn calculus. I am unable to get a hold of family members or his ex- to confirm why they did not remove the staghorn calculus. I talked to Dr. Rascon today and he stated that he had contacted the patient's insurance carrier to get approval to take the calculus out at [facility] but they would not approve it and suggested that he go to other providers that were within the 50 mile radius. Total clinical time spent by myself addressing the patient's medical issues, reviewing all of his data, and collaborating with the patient's care team: 50- minute Charges/Coding Visit Charges Inpatient E&M: 08479 Subs Hosp L3
[2025-02-26 16:40] VITALS: BP 118/64; PULSE 101; RESP 18; TEMP 36.8; O2SAT 100
--- NOTE | 2025-02-26 16:45 | CASEMGMT ---
Social Work PT/OT still pending at this time. SW spoke w/Sylvia again, explained that pt would actually not be able to get HHC as he best not have a PCP. SW and Sylvia had talked about pt getting home PT, SW did not realize at that time that pt did not have an active PCP, this, along w/pt's insurance, have been barriers in the past to pt getting home health care. SW explained that the service coming in was [facility], and that they have said they are discontinuing services as his care needs are too great. Sylvia states understanding. SW encouraged Sylvia to follow up w/pt's appt w/Amrita Fields Friday to get pt established w/a PCP, she plans to do so if pt is discharged in time. SW also let Sylvia know if pt is d/c on the weekend, she can call the SW dept here to follow up and make an appt to have pt complete LW/POA, if he is alert and oriented. Sylvia states understanding. SW did make the referral to Meals on Wheels and to the Waiver program(pt is too young for [facility]/AAoA). If pt is still here Friday, SW will follow up, will also assist pt w/POA and LW paperwork if time allows and pt is alert and oriented. PIERRE Tobias
[2025-02-26] MEDS: Potassium Chloride 10mEq/100mL 10 MEQ/100 ML IV.SOLN. 100 MEQ IV BOLUS ×3 (18:41→21:47)
[2025-02-26] MEDS: 0.9% Saline Lock 10 ML Syringe IV (18:46)
--- NOTE | 2025-02-26 19:21 | NURSING ---
called pts familySylvia to verify pts meds from home. no answer at this time. left voicemail.
[2025-02-26 20:19] VITALS: BP 114/79; PULSE 80; RESP 18; TEMP 37.2; O2SAT 96
[2025-02-26] MEDS: Insulin Glargine-YFGN 100 UNIT/ML Pen 15 UNIT SC (21:18)
[2025-02-26] MEDS: MELATONIN 3 MG TABLET 10 MG PO (21:27)
[2025-02-27 02:00] VITALS: BP 122/68; PULSE 89; RESP 18; TEMP 36.6; O2SAT 96
[2025-02-27 05:57] LABS: Hematocrit 24.0 % (40-54); Hemoglobin 8.2 g/dL (13.0-16.5); Immature Granulocytes Count 0.030 X10^3/uL (0.0-0.0); Mean Corp Hgb Conc 34.2 g/dL (32-36); Mean Corpuscular Volume 89.6 fL (80-94); Mean Platelet Vol. 11.3 fl (6.2-12.0); NRBC Flagged by Analyzer 0 % (0-5); POSITIVE MORPHOLOGY YES; Platelet Count 133 K/mm3 (150-450); RBC Distribution Width CV 21.7 % (11.6-14.6); RBC Distribution Width SD 68.2 fl (35.1-43.9); Red Blood Count 2.68 M/mm3 (4.6-6.2); White Blood Count 8.2 K/mm3 (4.4-11.0)
[2025-02-27 06:06] LABS: Differential Indicated SCAN CRITERIA MET
[2025-02-27 06:32] LABS: AST(SGOT) 65 U/L (<=37); Alanine Aminotransfer ALT/SGPT 43 U/L (<=46); Albumin, Serum 2.2 g/dL (3.5-5.0); Alkaline Phosphatase 244 U/L (40-129); Anion Gap 10 (5-15); BUN 15 mg/dL (4-19); BUN/Creat Ratio 13.0 RATIO (10-20); Calcium,Total 8.0 mg/dL (7.6-11.0); Carbon Dioxide 20.8 mmol/L (21.0-32.0); Chloride 101 mmol/L (98-108); Estimated Creatinine Clearance 78.45 ml/min (50-250); Globulin 3.3 g/dL (2.2-4.2); Glucose 272 mg/dL (70-99); Potassium 3.2 mmol/L (3.3-5.1)
[2025-02-27 06:36] LABS: Anisocytosis 2+; Differential Comment SCANNED; Polychromasia 1+
[2025-02-27 09:07] VITALS: BP 119/96; PULSE 85; RESP 16; TEMP 36.4; O2SAT 92
[2025-02-27] MEDS: Ceftriaxone 2 GM in 0.9% Normal Saline (50mL MB+) 50 ML IV (09:19)
[2025-02-27] MEDS: Insulin Glargine-YFGN 100 UNIT/ML Pen 15 UNIT SC (09:24)
--- NOTE | 2025-02-27 14:35 | PCM.DC ---
Discharge Instructions DC O2, CPAP, BIPAP needs Home O2 Discharge instructions: No Dressing / Incision Discharge Activity: Return to Normal Activity Weight Bearing Status: Full weight bearing Follow Up Care Test Results: Test results from this visit will be discussed in further detail at your follow-up appointment, if applicable. Discharge Plan Admission Admit Date/Time: 02/25/25 16:13 Primary Reason for Your Visit: hepatic encephalopathy Attending Provider: Rick Carlin Primary Care Provider: Josy Elias Consulting Providers: Kathie Powers Discharge Orders/Prescriptions Prescriptions: New lactulose 10 gram/15 mL Solution 20 g PO TID Qty: 1 0RF insulin glargine-yfgn 100 unit/mL (3 mL) Insulin Pen 20 unit subcut BID Qty: 1 0RF ciprofloxacin HCl 500 mg tablet 500 mg PO DAILY Qty: 14 0RF Rx Instructions: start on 02/28/25 Continued Xifaxan 550 mg Tablet 550 mg PO BID Qty: 60 0RF cyclobenzaprine 10 mg tablet 10 mg PO QHS ferrous sulfate [FeroSul] 325 mg (65 mg iron) tablet 325 mg PO QODAY insulin lispro [Humalog KwikPen Insulin] 100 unit/mL Insulin Pen 10 unit subcut TIDAC Qty: 0 0RF folic acid 1 mg tablet 1 mg PO DAILY calcium carbonate-vitamin D3 [Oyster Shell Calcium-Vit D3] 500 mg-5 mcg (200 unit) tablet 1 tab PO DAILY acetaminophen 500 mg Tablet 1,000 mg PO Q8 PRN (Reason: fever or pain) atorvastatin 40 mg tablet 40 mg PO DAILY magnesium oxide 400 mg (241.3 mg magnesium) tablet 400 mg PO DAILY sodium bicarbonate 650 mg tablet 650 mg PO BID metformin 500 mg tablet extended release 24 hr 500 mg PO QPM thiamine HCl (vitamin B1) 100 mg tablet 100 mg PO DAILY zinc sulfate 50 mg zinc (220 mg) tablet 50 mg PO DAILY ascorbic acid (vitamin C) 500 mg tablet 500 mg PO BID Qty: 60 2RF furosemide 40 mg Tablet 40 mg PO DAILY 30 Days Qty: 30 2RF spironolactone 100 mg tablet 150 mg PO DAILY 30 Days Qty: 30 2RF Rx Instructions: Hold for serum potassium more than 5.0. carvedilol 3.125 mg tablet 3.125 mg PO BID 30 Days Qty: 60 2RF Rx Instructions: must administer with a meal/food Discontinued lactulose 10 gram/15 mL Solution 10 g PO TID Qty: 3000 0RF Rx Instructions: Goal is 2-3 bowel movements daily if you are having more than this with this amount of lactulose decrease dose to twice daily from 3 times daily insulin glargine-yfgn 100 unit/mL (3 mL) Insulin Pen 20 unit subcut QHS Qty: 15 1RF No Action (DME) pen needle, diabetic [Pen Needle] 31 gauge x 5/16 needle See Rx Instructions .Route Qty: 1200 0RF Rx Instructions: As directed Referrals / Follow Up: Niranjan Li DO [Med Staff - Active Staff] - See Referral Note (In 10 days, call for the appointment tomorrow to schedule this) Josy Elias SENIOR FRONT END DEVELOPER-C [Primary Care Provider] - Disposition Disposition (needs filled in before D/C Order can be placed): Home, Self Care
[2025-02-27 14:46] VITALS: BP 119/67; PULSE 87; RESP 16; TEMP 36.9; O2SAT 96
[2025-02-27] MEDS: Potassium Chloride Oral Tablet 20 MEQ PO (14:47)
--- NOTE | 2025-02-27 14:49 | PCM.DC.SUM ---
Providers Date of Admission: 02/25/25 Date of Discharge: 02/27/25 Primary Care Physician: YG Pena Consultations 02/25/25 17:03 Consult: Gastroenterology Routine Consulting Provider: [facility] Reason for Consult: abd pain, confusion, now w/ hepatic encephalopathy EMERGENT Consult: No MD Notified: Yes Date Notified: 02/25/25 Time Notified: 17:30 Method of Notification: Text Reason For Visit: HEPATIC ENCEPHALOPATHY Diagnosis Discharge Diagnosis (1) Acute hepatic encephalopathy: Status: Acute Code(s): K76.82 - Hepatic encephalopathy Plan 1. Acute hepatic encephalopathy-patient will remain on lactulose and Xifaxan #2 diffuse abdominal pain-etiology unclear, it does not appear from the ascitic fluid that he is infected at this time, I will continue the Rocephin for now, I talked to urology who had placed a stent into the urethra in September of this year, Dr. Rascon stated that it could be the stent is causing the abdominal discomfort. #3 MASLD with cirrhosis-complicates care, management, recovery, and prognosis #4 staghorn calculus-a left ureteral stent was placed on 09/05/2024-it appears that he was sent to the [facility] on 11/10/2024-it does not appear that they addressed the removal of the staghorn calculus. I am unable to get a hold of family members or his ex- to confirm why they did not remove the staghorn calculus. I talked to Dr. Rascon today and he stated that he had contacted the patient's insurance carrier to get approval to take the calculus out at [facility] but they would not approve it and suggested that he go to other providers that were within the 50 mile radius. Total clinical time spent by myself addressing the patient's medical issues, reviewing all of his data, and collaborating with the patient's care team: 50-minute Medications at Discharge Home Medications rifaximin 550 mg tablet (Xifaxan) 550 mg PO BID diarrhea #60 tabs 09/02/24 acetaminophen 500 mg tablet 1,000 mg PO Q8 PRN fever or pain 10/28/24 calcium 500 mg (as carbonate)-vitamin D3 5 mcg (200 unit) tablet (Oyster Shell Calcium-Vitamin D3) 1 tab PO DAILY supplement 10/28/24 folic acid 1 mg tablet 1 mg PO DAILY supplement 10/28/24 atorvastatin 40 mg tablet 40 mg PO DAILY cholesterol 11/21/24 magnesium oxide 400 mg (241.3 mg magnesium) tablet 400 mg PO DAILY supplement 11/21/24 metformin 500 mg tablet,extended release 24 hr 500 mg PO QPM diabetes 11/21/24 sodium bicarbonate 650 mg tablet 650 mg PO BID supplement 11/21/24 thiamine HCl (vitamin B1) 100 mg tablet 100 mg PO DAILY supplement 11/21/24 zinc sulfate 50 mg zinc (220 mg) tablet 50 mg PO DAILY supplement 11/21/24 ascorbic acid (vitamin C) 500 mg tablet 500 mg PO BID vitamin #60 tabs 11/25/24 cyclobenzaprine 10 mg tablet 10 mg PO QHS muscle relaxer 01/02/25 ferrous sulfate 325 mg (65 mg iron) tablet (FeroSul) 325 mg PO QODAY supplement 01/02/25 insulin lispro 100 unit/mL subcutaneous pen (Humalog KwikPen (U-100) Insulin) 10 unit (0.1 mL) subcut TIDAC #0 mL 01/05/25 pen needle, diabetic 31 gauge x 5/16 (Pen Needle) #1,200 ea 01/31/25 carvedilol 3.125 mg tablet 3.125 mg PO BID 1 month #60 tabs 02/17/25 furosemide 40 mg tablet 40 mg PO DAILY 30 days #30 tabs 02/17/25 spironolactone 100 mg tablet 150 mg (1.5 x 100 mg) PO DAILY 1 month #30 tabs 02/17/25 ciprofloxacin HCl 500 mg tablet 500 mg PO DAILY #14 tabs 02/27/25 insulin glargine-yfgn 100 unit/mL (3 mL) subcutaneous pen 20 unit (0.2 mL) subcut BID #1 mL 02/27/25 lactulose 10 gram/15 mL oral solution 20 g (30 mL) PO TID #1 mL 02/27/25 Hospital Course Operations None Procedures Paracentesis Summary of Care Provided Minutes Spent on Discharge: 31 Hospital Course: This 59-year-old male with a history of MASLD was seen in the emergency room at [facility] [place] with complaints of confusion. Patient has been noncompliant following up with GI here in town, I attempted to get a hold of the patient's ex- and significant other to find out where the patient has been following up after his hospitalization but was unable to contact either one of them. On examination in the ER, patient was confused, liver enzymes are elevated, ammonia level was elevated at 127 CBC was remarkable for hemoglobin 9.4 with a normal white count. Patient complained of diffuse abdominal pain, he had recently had a CAT scan done of the abdomen and pelvis and this was not repeated in the emergency room. Sample of the patient's ascitic fluid was sent to the lab for analysis and the patient was admitted to PCU on IV antibiotics and Xifaxan and lactulose. The next day, patient was alert and appropriate, he was afebrile but still had abdominal discomfort. The exact etiology for the abdominal discomfort was not well understood, I did talk with urology who had placed a stent in the patient's left ureter and urology stated that the patient could have abdominal pain from the stent. It appears that the patient was sent up to the [facility] in November of this year but this staghorn calculus was not removed from his left kidney. Again I could not contact the family members or the ex- to get an explanation of why this was not taken care of. Patient's ascitic fluid results were reviewed by myself, it did not appear that the patient had evidence of spontaneous bacterial peritonitis, cultures were not back at the time patient was discharged home on 02/27/2025. I elected to send the patient home with daily antibiotics with instructions to follow-up with Dr. Li in 10 days. On 02/27/2025, patient was seen and examined: On examination he appeared in good health and spirits. Vital signs as documented. Skin warm and dry and without overt rashes. Neck without JVD, neck was supple, trachea midline, thyroid was normal. Lungs clear bilaterally, normal air movement was noted. Heart exam notable for regular rhythm, normal sounds and absence of murmurs, rubs or gallops. Abdomen unremarkable and without evidence of organomegaly, masses, or abdominal aortic enlargement. Bowel sounds are present, abdomen is not distended. Extremities nonedematous, no cyanosis was noted, no clubbing was noted. Neuro: Cranial nerves II through XII are grossly intact, no focal motor deficits were noted, sensation to light touch and pinprick intact, motor exam 5/5 throughout. Psych: Patient is alert and oriented x3, he does not appear anxious or depressed, he does not appear agitated. Patient appears to be stable for discharge home on 02/27/2025. Weight / BMI Weight Weight: 90.265 kg Body Mass Index (BMI) 31.9 ABG / Lab / Microbiology Data 02/27/25 05:41 02/27/25 05:41 Laboratory: Laboratory Results - last 24 hr 02/26/25 21:15: POC Glucose 323 H 02/27/25 05:41: WBC 8.2, RBC 2.68 L, Hgb 8.2 L, Hct 24.0 L, MCV 89.6, MCH 30.6, MCHC 34.2, RDW Std Deviation 68.2 H, RDW Coeff of Francis 21.7 H, Plt Count 133 L, MPV 11.3, Immature Gran % (Auto) 0.400, Neut % (Auto) 61.4, Lymph % (Auto) 18.6 L, [place] % (Auto) 12.5 H, Eos % (Auto) 6.2 H, Baso % (Auto) 0.9, Absolute Neuts (auto) 5.1, Absolute Lymphs (auto) 1.53, Nucleated RBC % 0, Differential Comment SCANNED, Platelet Estimate SLT DEC, Polychromasia 1+, Anisocytosis 2+, Ovalocytes 1+, Sodium 131 L, Potassium 3.2 L, Chloride 101, Carbon Dioxide 20.8 L, Anion Gap 10, BUN 15, Creatinine 1.14, Estim Creat Clear Calc 78.45, Est GFR (MDRD) Non-Af 75, BUN/Creatinine Ratio 13.0, Glucose 272 H, Calcium 8.0, Total Bilirubin 4.15 H, AST 65 H, ALT 43, Alkaline Phosphatase 244 H, Total Protein 5.5 L, Albumin 2.2 L, Globulin 3.3, Albumin/Globulin Ratio 0.7 L 02/27/25 06:28: POC Glucose 265 H 02/27/25 11:42: POC Glucose 368 H Microbiology: Microbiology 02/25/25 15:40 Fluid - Ascites Gram Stain - Final D/C Instructions Weight Bearing Status: Full weight bearing DC O2, CPAP, BIPAP Needs Home O2 Discharge instructions: No Meaningful Use Info Meaningful Use Meaningful Use Diagnoses (Choose all that apply): None applicable Discharge Plan Admission Admit Date/Time: 02/25/25 16:13 Primary Reason for Your Visit: hepatic encephalopathy Attending Provider: Rick Carlin Primary Care Provider: Josy Elias Consulting Providers: Kathie Powers Discharge Orders/Prescriptions Prescriptions: New lactulose 10 gram/15 mL Solution 20 g PO TID Qty: 1 0RF insulin glargine-yfgn 100 unit/mL (3 mL) Insulin Pen 20 unit subcut BID Qty: 1 0RF ciprofloxacin HCl 500 mg tablet 500 mg PO DAILY Qty: 14 0RF Rx Instructions: start on 02/28/25 Continued Xifaxan 550 mg Tablet 550 mg PO BID Qty: 60 0RF cyclobenzaprine 10 mg tablet 10 mg PO QHS ferrous sulfate [FeroSul] 325 mg (65 mg iron) tablet 325 mg PO QODAY insulin lispro [Humalog KwikPen Insulin] 100 unit/mL Insulin Pen 10 unit subcut TIDAC Qty: 0 0RF folic acid 1 mg tablet 1 mg PO DAILY calcium carbonate-vitamin D3 [Oyster Shell Calcium-Vit D3] 500 mg-5 mcg (200 unit) tablet 1 tab PO DAILY acetaminophen 500 mg Tablet 1,000 mg PO Q8 PRN (Reason: fever or pain) atorvastatin 40 mg tablet 40 mg PO DAILY magnesium oxide 400 mg (241.3 mg magnesium) tablet 400 mg PO DAILY sodium bicarbonate 650 mg tablet 650 mg PO BID metformin 500 mg tablet extended release 24 hr 500 mg PO QPM thiamine HCl (vitamin B1) 100 mg tablet 100 mg PO DAILY zinc sulfate 50 mg zinc (220 mg) tablet 50 mg PO DAILY ascorbic acid (vitamin C) 500 mg tablet 500 mg PO BID Qty: 60 2RF furosemide 40 mg Tablet 40 mg PO DAILY 30 Days Qty: 30 2RF spironolactone 100 mg tablet 150 mg PO DAILY 30 Days Qty: 30 2RF Rx Instructions: Hold for serum potassium more than 5.0. carvedilol 3.125 mg tablet 3.125 mg PO BID 30 Days Qty: 60 2RF Rx Instructions: must administer with a meal/food Discontinued lactulose 10 gram/15 mL Solution 10 g PO TID Qty: 3000 0RF Rx Instructions: Goal is 2-3 bowel movements daily if you are having more than this with this amount of lactulose decrease dose to twice daily from 3 times daily insulin glargine-yfgn 100 unit/mL (3 mL) Insulin Pen 20 unit subcut QHS Qty: 15 1RF No Action (DME) pen needle, diabetic [Pen Needle] 31 gauge x 5/16 needle See Rx Instructions .Route Qty: 1200 0RF Rx Instructions: As directed Referrals / Follow Up: Niranjan Li DO [Med Staff - Active Staff] - See Referral Note (In 10 days, call for the appointment tomorrow to schedule this) Josy Elias, MOE-C [Primary Care Provider] - Disposition Disposition (needs filled in before D/C Order can be placed): Home, Self Care Charges/Coding Visit Charges Inpatient E&M: 39821 Disch Hosp >30min
[2025-02-28 15:56] LABS: Pathologist Comment/Body Fluid Reviewed
== END 2025-02-27 15:23 | disposition home or self-care (01) ==
LOC: ED 15:47 → PCU 16:59
PROVIDERS: Admitting Provider Internal Medicine; Emergency Provider Emergency Medicine; PCP Nurse Practitioner Family; Visit Provider Internal Medicine
DX: K76.82 Hepatic encephalopathy (principal); K76.6 Portal hypertension; K74.60 Unspecified cirrhosis of liver; Z79.4 Long term (current) use of insulin; E11.9 Type 2 diabetes mellitus without complications; N20.0 Calculus of kidney; R41.82 Altered mental status, unspecified; G89.29 Other chronic pain; R18.8 Other ascites; E78.5 Hyperlipidemia, unspecified; Z79.899 Other long term (current) drug therapy; Z79.84 Long term (current) use of oral hypoglycemic drugs; E72.20 Disorder of urea cycle metabolism, unspecified; D64.9 Anemia, unspecified; Z87.891 Personal history of nicotine dependence; I10 Essential (primary) hypertension; K75.81 Nonalcoholic steatohepatitis (NASH)
CPT/HCPCS: 49083; 36415; 80053; 81001; 82140; 82962; 83690; 85025; 85610; 87070; 87075; 87205; 89050; 96365; 96366; 96367; 96372; 96375; 96376; 97161; 97165; 97802; 99221; 99285; 99406; A4216; G0378; J0696; J2405

== ENCOUNTER → 2025-03-04 | Outpatient (CLI) | payer MEDICAID, SELFPAY ==
--- NOTE | 2025-03-04 11:53 | US_ITS ---
PROCEDURE: PARACENTESIS WITH US 03/04/2025 REASON FOR EXAM: DECOMPENSATED LIVER CIRRHOSIS TECHNIQUE: PARACENTESIS WITH US COMPARISON: None. FINDINGS: Procedure: Following informed consent, inducing standard sterile technique, an ultrasound- guided paracentesis was performed via a right lower quadrant access position. 2% lidocaine local anesthesia was followed by placement of a 5 [place] catheter into the right lower quadrant abdominal fluid collection. Approximately 950 mL clear yellow fluid was then successfully removed. No complication was encountered, in the patient left the department in good condition without significant complaint. US/Paracentesis with US IMPRESSION: Successful ultrasound-guided abdominal paracentesis. Reading Location: [place] [id number]
[2025-03-04 12:24] VITALS: BP 104/62; PULSE 69; RESP 16; O2SAT 98
[2025-03-04] MEDS: Lidocaine 2% (20 ml mdv) 20 ML Vial INFILT (12:26)
[2025-03-04 12:30] VITALS: BP 98/65; PULSE 71; RESP 16; O2SAT 98
[2025-03-04 12:36] VITALS: BP 103/64; PULSE 68; RESP 16; O2SAT 98
== END | disposition home or self-care (01) ==
PROVIDERS: PCP Nurse Practitioner Family
DX: K74.69 Other cirrhosis of liver (principal)
CPT/HCPCS: 49083

== ENCOUNTER 2025-03-11 17:05 | Emergency (ER) | payer MEDICAID, SELFPAY ==
[2025-03-11 17:10] VITALS: BP 105/74; PULSE 72; RESP 12; TEMP 36.7; O2SAT 100; BMI 29.8
--- OUTSIDE RECORDS SUMMARY | 2025-03-11 17:32 | XMS RPT_ITS | CCD ---
Author Organization [facility] Care Team Providers Care Pedicurist Name Role Phone Sergey HERNANDEZ, Maurice Soria Primary Care Provider Care Physician, No Primary Primary Care Provider Unavailable Dr. Danny Hutton DO Attending Provider Dr. Danny Hutton DO Emergency Provider Dr. Luis Carlos Anedrson DO Emergency Provider Mone HERNANDEZ, Dr. Maria [...] Provider Dr. Bola Meraz DO Other Provider [phone] Víctor HERNANDEZ, Dr. Hill Alcaraz Other Provider Dr. Jeff Cornelius MD Other Provider Missael HERNANDEZ, Dr. Cotton Other Provider Ashely HERNANDEZ, Dr. Foote Other Provider [phone] Cassandra HERNANDEZ, Dr. Garvin Other Provider Yamil [...] Dr. Jae Ash DO Other Provider [phone] Karena HERNANDEZ, Dr. Andre Other Provider Abiodun HERNANDEZ, Dr. Foster Rivas Other Provider Dr. Anurag Irene MD Referring Provider Nomi HERNANDEZ, Dr. Douglas Other Provider Dr. Anurag Irene MD Attending Provider Nilsa NOYOLA, Dr. Rowe Attending Provider Timbo NOYOLA, Dr. Shook Other Provider BILLDIANE Parada Attending Provider BILLDIANE Parada Referring Provider BILLRTEY ParadaA Other Provider Bailee ACCESS ANALYST-C, Jasmine Attending Provider Shaun HERNANDEZ, Dr. Campo [...] Víctor HERNANDEZ, Dr. Hill Alcaraz Other Provider [phone] Ashli HERNANDEZ, Dr. Aguilar Other Provider Missael HERNANDEZ, Dr. Cotton Other Provider Ashely HERNANDEZ, Dr. Foote Other Provider [phone] Cassandra HERNANDEZ, Dr. Garvin Other Provider Yamil [...] Dr. Jae Ash DO Other Provider [phone] Karena HERNANDEZ, Dr. Andre Other Provider Abiodun HERNANDEZ, Dr. Foster Rivas Other Provider Teto HERNANDEZ, Dr. Osborn Referring Provider Nomi HERNANDEZ, Dr. Douglas Other Provider Teto HERNANDEZ, Dr. Osborn Attending Provider Dr. Jae Ash DO Attending Provider Timbo NOYOLA, Dr. Shook Other Provider TREY CALLAHANA Attending Provider BILLTREY ParadaA Referring Provider BILLKarma, DIANE Other Provider Bailee ACCESS ANALYST-C, Jasmine Attending Provider Shaun HERNANDEZ, Dr. Campo [...] Dr. Scott Weston DO Other Provider Elie ACCESS ANALYST-C, Yue Other Provider Caro DO, Dr. Alejandre Referring Provider Unav ailable Shila HERNANDEZ, Dr. Buster Barr Attending Provider Shila HERNANDEZ, Dr. Buster Barr Referring Provider Dr. Hill Acuña MD Attending Provider Unavaila priscila Powers MD, Dr. Vázquez Other Provider Unavailable Primary Care Provider Radha Carlson MD, Dr. Kevin Emergency Provider Dr. Jae Ash DO Admit Provider Gio HERNANDEZ, Dr. Vázquez Admit Provider Tannhof ACCESS ANALYST-C, Josy Primary Care Provider Tannhof ACCESS ANALYST-C, Josy Attending Provider KATHIE POWERS Referring Unavailable DAY PRICE Admitting Unavailable YOUNG CRUZ Attending Unavailable Care Physician, No Primary Primary Care Provider Unavailable Curt ACCESS ANALYST-CJosy Referring Provider Wei NOYOLA, Dr. Shook Emergency [...] 45 Dr. Betty Pruett MD Other Provider [phone] Dr. Gwendolyn Logan MD Other Provider [facility] karma Venegas MD, Dr. Whyte Other Provider [...] HERNANDEZ, Dr. Hill Alcaraz Other Provider [phone] Ashli HERNANDEZ, Dr. Aguilar Other Provider Missael HERNANDEZ, Dr. Cotton Other Provider [phone] Ashely HERNANDEZ, Dr. Foote Other Provider Cassandra HERNANDEZ, Dr. Garvin Other Provider [phone] Dr. Will Lobo MD Other Provider [phone] Dr. Mina Xie MD Other Provider Seble HERNANDEZ, Dr. Hernández Other Provider Desmond HERNANDEZ, Dr. Snow Other Provider [facility] karma Mosher MD, Dr. Douglas Other Provider Theo HERNANDEZ, Dr. Whyte Other Provider Laurent HERNANDEZ, Dr. Raya Other Provider Angely HERNANDEZ, Dr. Silver Other Provider Jazmyne NOYOLA, Dr. Cueavs Other Provider Carmela HERNANDEZ, Dr. Tam Other Provider Mallorie HERNANDEZ, Dr. Kelly Other Provider Nuzhat NOYOLA, Dr. Cooper Other Provider Rosendo HERNANDEZ, Dr. Wesley Other Provider [phone] Dylan HERNANDEZ, Dr. Colon Other Provider [phone] Dr. Jae Ash DO Attending Provider Teto [...] Dr. Delgado Emergency Provider Presley HERNANDEZ, Dr. Mraques Primary Care Provider Timbo NOYOLA, Dr. Shook [...] Unavailable Jen NOYOLA, Dr. Ureña Other Provider Rick Carlin Attending Unavailable Maria Guadalupe Shore Admitting Unavailable Maria Guadalupe Shore Referring Unavailable John Paul Masterson Consulting Unavailable Care Physician, No Primary Primary Care Unava ilable Christian Abdi Consulting Unavailable Juarez Baird Consulting Unavailable Bola Meraz Consulting Unavailable Hill Renee Consulting Unavailable Jeff Cornelius Consulting Unavailable Yury Canas Consulting Unavailable Dary Lund Consulting Unavailab Bharathi Moore Consulting Unavailable Will Lobo Consulting Unavailable Mina Xie Consulting Unavailable Betty Pruett Consulting Unavailable Aljundi, Lamia Consulting Unavailable Theo, Pato Consulting Unavailable Irukulla, Elver Consulting Unavailable Angely, Nadeem Consulting Unavailable Dhesi, Mason Consulting Unavailable Anel Casey Consulting Unavailable Mallorie, Charleeyah Consulting Unavailable Mosestrfrancisca, Kenneth Consulting Unavailable Rosendo, Lupillo Consulting Unavailable Young Richardson Consulting Unavailable Maria Guadalupe Shore Consulting Unavailable ErinJosefina feliciano Consulting Unavailable Rick Carlin Consulting Unavailable Yaritza Leo Consulting Unavailable Yaritza Leo Admitting Unavailable Guy, Cielo Edyta Attending Unavailable Josy Elias Primary Care Unavailable Jefferson Malave Consulting Unavailable Aleyda Bautista Consulting Unavailable Guy, Cielo Edyta Consulting Unavailable Yaritza Leo Attending Unavailable Boone Izquierdo Consulting Unavailable Boone Izquierdo Admitting Unavailable Jerald Sherwood Primary Care Unavailable Kathie Powers Admitting Unavailable Kathie Powers Consulting Unavailable Care Physician, No Primary Primary Care Unava ilable Hill Acuña Attending Unavailable Thai Thurston Consulting Unavailable Yaritza Leo Attending Unavailable Bola Meraz Attending Unavailable Koram, Cielo Edyta Referring Unavailable John Paul Masterson Consulting Unavailable Christian Abdi Consulting Unavailable Juarez Baird Consulting Unavailable Bola Meraz Consulting Unavailable Hill Renee Consulting Unavailable Jeff Cornelius Consulting Unavailable Yury Canas Consulting Unavailable Dary Lund Consulting UnavailBharathi East Consulting Unavailable Will Lobo Consulting Unavailable Mina Xie Consulting Unavailable Betty Pruett Consulting Unavailable Aljundi, Lamia Consulting Unavailable Stella Mosher Consulting Unavailable Theo, Pato Consulting Unavailable Irukulla, Elver Consulting Unavailable Angely, Nadeem Consulting Unavailable Dhesi, Mason Consulting Unavailable Anel Casey Consulting Unavailable Mallorie, Soleyah Consulting Unavailable Mosestrfrancisca, Kenneth Consulting Unavailable Rosendo, Lupillo Consulting Unavailable Young Richardson Consulting Unavailable Kathie Powers Consulting Unavailable Kathie Powers Admitting Unavailable Care Physician, No Primary Primary Care Unava ilable Hill Acuña Attending Unavailable Hill Acuña Consulting Unavailable Thai Thurston Consulting Unavailable Care Physician, No Primary Primary Care Unava ilable aJe Ash Attending Unavailable Jae Ash Consulting Unavailable Jae Ash Admitting Unavailable Kotsonis, Buster F Consulting Unavailable Kotsonis, Buster F Admitting Unavailable Kotsonis, Buster F Attending Unavailable Tannhof, Josy Primary Care Unavailable Hill Acuña Attending Unavailable Hill Acuña Consulting Unavailable Teto, Anurag Attending Unavailable Teto, Aunrag Consulting Unavailable Care Physician, No Primary Primary Care Unava ilable Mosteller, Jae Consulting Unavailable Teto, Anurag Attending Unavailable eller, Jae Admitting Unavailable Teto, Anurag Consulting Unavailable Kathie Powers Attending Unavailable Tannhof, Josy Primary Care Unavailable Tannhof, Josy Attending Unavailable Mosteller, Jae Consulting Unavailable Tannhof, Josy Primary Care Unavailable Mosteller, Jae Admitting Unavailable Teto, Anurag Attending Unavailable Niranjan Li Consulting Unavailable Rick Carlin Attending Unavailable Kathie Powers Admitting Unavailable Kathie Powers Consulting Unavailable Tannhof, Josy Primary Care Unavailable Mina Blood Attending Unavailable Presley, Jerald Primary Care Unavailable Luis Carlos Anderson Attending Unavailable Presley, Jerald Primary Care Unavailable Tannhof, Josy Primary Care Unavailable Boone Carvajal Attending Unavailable Care Physician, No Primary Primary Care Unava ilable PACHECO DAVID Attending Unavailable JOANN, PACHECO Referring Unavailable Ahmet, Yaritza Consulting Unavailable Ahmet, Yaritza Admitting Unavailable Tannhof, Josy Primary Care Unavailable Teto, Anurag Attending Unavailable Jefferson Malave Consulting Unavailable Aleyda Bautista Consulting Unavailable Cielo Tovar Consulting Unavailable Rick Carlin Attending Unavailable White, Maria Guadalupe L Consulting Unavailable White, Maria Guadalupe L Referring Unavailable White, Maria Guadalupe L Admitting Unavailable Care Physician, No Primary Primary Care Unava ilable Yomi Khans Consulting Unavailable Tannhof, Josy Referring Unavailable Julita Glover Attending Unavailable Tannhof, Josy Consulting Unavailable Tannhof, Josy Primary Care Unavailable Mina Blood Referring Unavailable Mina Blood Attending Unavailable Presley, Jerald Primary Care Unavailable Jerald Sherwood Attending Unavailable Jerald Sherwood Referring Unavailable Presley, Jerald Primary Care Unavailable JOANN, PACHECO Referring Unavailable PACHECO DAVID Attending Unavailable Tannhof, Josy Primary Care Unavailable Care Physician, No Primary Primary Care Unava ilable JOANN, PACHECO Referring Unavailable JOANN PACHECO Attending Unavailable Mina Blood Attending Unavailable Tannhof, Josy Primary Care Unavailable Care Physician, No Primary Primary Care Unava ilable Kathie Powers Attending Unavailable Hill Caro Consulting Unavailable Hill Caro Admitting Unavailable Foster Rascon Consulting Unavailable Buster Fuchs Consulting Unavailable Hill Acuña Consulting Unavailable Hill Herrmann Consulting Unavailable Blair Cage Consulting Unavailable Thiago Wray Consulting Unavailable Gabbi uHghes Consulting Unavailable Thai Godfrey Consulting Unavailable Juan Daniel Garza Consulting Unavailable Zachariah Glover Consulting Unavailable Scott Weston Consulting Unavailable Elie ACCESS ANALYST, Yue Consulting Unavailable Boone Izquierdo Attending Unavailable Hill Caro Consulting Unavailable Care Physician, No Primary Primary Care Unava ilable Hill Caro Admitting Unavailable Anurag Irene Consulting Unavailable Jae Ash Consulting Unavailable Thai Thurston Consulting Unavailable Josefina Khan Consulting Unavailable Foster Rascon Consulting Unavailable Anurag Irene Attending Unavailable Anurag Irene Consulting Unavailable Care Physician, No Primary Primary Care Unava ilable PACHECO DAVID Referring Unavailable PACHECO DAIVD Consulting Unavailable Bailee ACCESS ANALYST, Jasmine Attending Unavailable Mina Blood Consulting Unavailable Mar Lopez Attending Unavailable Mina Blood Referring Unavailable Jerald Sherwood Primary Care Unavailable Care Physician, No Primary Primary Care Unava ilable Hill Caro Admitting Unavailable Hill Caro Consulting Unavailable Hill Acuña Attending Unavailable Foster Rascon Consulting Unavailable Buster Fuchs Consulting Unavailable Hill Acuña Consulting Unavailable Kathie Powers Attending Unavailable Kathie Powers Consulting Unavailable Care Physician, No Primary Primary Care Unava ilable Anurag Irene Attending Unavailable Jae Ash Consulting Unavailable Jae Ash Admitting Unavailable Buster Fuchs Consulting Unavailable Buster Fuchs Admitting Unavailable Josy Elias Primary Care Unavailable Hill Acuña Attending Unavailable Josy Elias Referring Unavailable Curt, Josy Primary Care Unavailable Josy Elias Attending Unavailable Jefferson Malave Attending Unavailable Teto Anurag Referring Unavailable Niranjan Li Attending Unavailable Care Physician, No Primary Primary Care Unava ilable Boone Izquierdo Attending Unavailable Hill Caro Consulting Unavailable Hill Caro Admitting Unavailable Anurag Irene Consulting Unavailable Jae Ash Consulting Unavailable Thai Thurston Consulting Unavailable ErinJosefina feliciano Consulting Unavailable Foster Rascon Consulting Unavailable Boone Izquierdo Consulting Unavailable Hill Caro Attending Unavailable John Paul Masterson Consulting Unavailable Trinidad, Christian Consulting Unavailable Juarez Baird Consulting Unavailable Bola Meraz Consulting Unavailable Hill Renee Consulting Unavailable Jeff Cornelius Consulting Unavailable Missael, Yury Consulting Unavailable Habtekelley, Dary Consulting Unavailab le Dand, Bharathi Consulting Unavailable Lobo, Will Consulting Unavailable Xie Mina Consulting Unavailable Seble, Betty Consulting Unavailable Aljundi, Lamia Consulting Unavailable Mosher, Stella Consulting Unavailable Theo, Pato Consulting Unavailable Irukulla, Elver Consulting Unavailable Angely, Nadeem Consulting Unavailable Dhesi, Mason Consulting Unavailable Casey, Sujoy Consulting Unavailable Amarillo, Soleyah Consulting Unavailable Fernstrom, Kenneth Consulting Unavailable Rosendo, Lupillo Consulting Unavailable Young Richardson Consulting Unavailable Bola Meraz Attending Unavailable Hill Caro Referring Unavailable Buster Fuchs Attending Unavailable Jae Ash Attending Unavailable Danny Hutton Attending [facility] e Care Physician, No Primary Primary Care Unava ilable Hill Caro Attending Unavailable Anurag Irene Attending Unavailable John Paul Masterson Consulting Unavailable Trinidad, Christian Consulting Unavailable Juarez Baird Consulting Unavailable Bola Meraz Consulting Unavailable Hill Renee Consulting Unavailable Jeff Cornelius Consulting Unavailable Missael, Yury Consulting Unavailable Genarotekelley, Dary Consulting Unavailab le Dand, Bharathi Consulting Unavailable Lobo, Will Consulting Unavailable Xie, Mina Consulting Unavailable Seble, Betty Consulting Unavailable Aljundi, Lamia Consulting Unavailable Mosher, Stella Consulting Unavailable Theo, Pato Consulting Unavailable Irukulla, Elver Consulting Unavailable Angely, Nadeem Consulting Unavailable Dhesi, Mason Consulting Unavailable Casey, Sujoy Consulting Unavailable Amarillo, Soleyah Consulting Unavailable Fernstrom, Kenneth Consulting Unavailable Rosendo, Lupillo Consulting Unavailable Young Richardson Consulting Unavailable Bola Meraz Attending Unavailable Anurag Irene Referring Unavailable Boone Izquierdo Attending Unavailable Jerald Sherwood Primary Care Unavailable Yaritza Leo Attending Unavailable Boone Izquierdo Consulting Unavailable Boone Izquierdo Admitting Unavailable Sherwood, Jerald Primary Care Unavailable Yaritza Leo Consulting Unavailable Jae Ash Attending Unavailable Jae Ash Admitting Unavailable Sherwood, Jerald Primary Care Unavailable Jae Ash Consulting Unavailable Anurag Irene Attending Unavailable Friend, Niranjan Consulting Unavailable Anurag Irene Consulting Unavailable Friend, Niranjan Attending Unavailable [facility] [place] Primary Care Unavailable Kathie Powers Attending Unavailable [facility] [place] [facility] Unavailable Friend, Niranjan Attending Unavailable Kathie Powers Admitting Unavailable Kathie Powers Consulting Unavailable [facility] [place] Primary Care Unavailable Rick Carlin Attending Unavailable Rick Carlin Consulting Unavailable Friend, Niranjan Attending Unavailable Buster Fuchs Referring Unavailable Maria Guadalupe Shore Attending Unavailable Bola Meraz Attending Unavailable Hill Herrmann Consulting Unavailable Blair Cage Consulting Unavailable Thiago Wray Consulting Unavailable Gabbi Hughes Consulting Unavailable Thai Godfrey Consulting Unavailable Juan Daniel Garza Consulting Unavailable Zachariah Glover Consulting Unavailable Scott Weston Consulting Unavailable Elie ROSA, Yue Consulting Unavailable Medications Current Medications Medication Drug Class(es) [...] 11/03/2024 Active take 2 tablets [facility] daily furosemide (LASIX) 20 mg [...] 11-21-2024 Start: 11-18-2024 take 1 capsule by [facility] once daily zinc sulfate 220 [...] hours or as directed by MD. 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 (BOYER)] Onset: 09-17-2024 09-23-2024 Chronic Nonspecific chest pain (12 sources) Chest pain; Translations: [Chest pain, unspecified] Onset: 01-06-2025 12-30-2024 Episodic Other aftercare (1 source) Encounter for other specified aftercare; Translations: [Encounter for other specified aftercare] Onset: 02-25-2025 Episodic Other and unspecified benign neoplasm (5 [...] sources) Hepatic encephalopathy; Translations: [Hepatic encephalopathy] Onset: 02-28-2025 09-10-2024 Episodic Other liver diseases (4 sources) Elevated liver enzymes level; Translations: [Abnormal levels of other serum enzymes] 02-16-2025 Episodic Other liver diseases (2 sources) Decompensated cirrhosis of liver; Translations: [Hepatic failure, unspecified without coma] 02-16-2025 Episodic Other liver diseases (2 sources) Abnormal levels of other serum enzymes; Translations: [Abnormal levels of other serum enzymes] Onset: 02-27-2025 Episodic Other liver diseases (2 sources) Hepatic failure, unspecified without coma; Translations: [Hepatic failure, unspecified without coma] Onset: 02-21-2025 Episodic Other nervous system disorders (20 sources) [...] [Disorder of urea cycle metabolism, unspecified] Onset: 02-27-2025 Chronic Other nutritional; endocrine; and metabolic disorders [...] [Calculus of kidney] Onset: 09-17-2024 09-05-2024 Episodic Fluid and electrolyte disorders (20 sources) Lactic acidosis; Translations: [Lactic acidosis] Onset: 11-11-2024 09-23-2024 Episodic Intestinal infection (20 sources) Clostridium difficile colitis; Translations: [Enterocolitis due to Clostridium difficile, not specified as recurrent] Onset: 11-11-2024 Resolved: 11-18-2024 10-30-2024 Episodic Malaise and fatigue (20 sources) Asthenia; Translations: [Weakness] Onset: 11-11-2024 09-05-2024 Episodic Other circulatory disease (1 source) [...] Interpretation Reference Range Facility Paracentesis with USon 03-04 Paracentesis with US Normal [facility] Culture, Anaerobic Any Sourc iliana 03-03-2025 CUAN No growth in 5 days. Normal [facility] Comment on above: Performed By: #### M 100.2900, M100.4001, M100.2000, L200.0200, L400.0001 ####[facility] [address] [place], [address] Body Fluid Cell Count+Diffon 02-28-2025 PATH COMM/BF Reviewed Normal [facility] Comment on above: Order Comment: The r eference range and other method performancespecifications have not been established for this bodyfluid. The test must be integrated into the clinicalcontext for interpretation. Result Comment: NO M ALIGNANT CELLS IDENTIFIED.Pamella Umana MD 02/28/2025 AMENDED REPORT 02/28/25 1556 PATH COMM/BF previously reported as: May follow Performed By: #### M 100.2900, M100.4001, M100.2000, L200.0200, L400.0001 ####[facility] [address] [place], [address] Bedside Glucoseon 02-27-2025 FINGERSTICK GLU 368 mg/dL High 74-106 [facility] Comment on above: Result Comment: BRISA MOROCHO OF PATIENT CARE PER NURSING PROTOCOL Performed By: #### L 501.080 ####[facility] [address] [place], [address] FINGERSTICK GLU 265 mg/dL High 74-106 [facility] Comment on above: Result Comment: BRISA MOROCHO OF PATIENT CARE PER NURSING PROTOCOL Performed By: #### L 501.080 ####[facility] [address] [place], [address] CBC W/Diff, Automatedon 07- Anisocytosis Ql (Bld) 2+ Normal [facility] [place] Comment on above: Performed By: #### L 500.4050, L100.0100 ####[facility] [address] [place], [address] OVALOCYTE 1+ Normal [facility] Comment on above: Performed By: #### L 500.4050, L100.0100 ####[facility] [address] [place], [address] PLT EST SLT DEC Normal ADEQ [facility] Comment on above: Performed By: #### L 500.4050, L100.0100 ####[facility] [address] [place], [address] POLYCHROMASIA 1+ Normal [facility] Comment on above: Performed By: #### L 500.4050, L100.0100 ####[facility] [address] [place], [address] SMEAR COMMENT SCANNED Normal [facility] Comment on above: Performed By: #### L 500.4050, L100.0100 ####[facility] [address] [place], [address] Comprehensive Metabolic Prof ilon 02-27-2025 Albumin [Mass/Vol] 2.2 g/dL Low 3.5-5.0 [facility] Comment on above: Performed By: #### L 500.4050, L100.0100 ####[facility] [address] [place], [address] Albumin/Globulin [Mass ratio] 0.7 {ratio} Low 0.9-2.4 [facility] Comment on above: Performed By: #### L 500.4050, L100.0100 ####[facility] [address] [place], [address] ALK PHOS 244 U/L High 40-129 [facility] Comment on above: Performed By: #### L 500.4050, L100.0100 ####[facility] [address] [place], [address] ALT [Catalytic activity/Vol] 43 U/L Normal <=46 [facility] Comment on above: Performed By: #### L 500.4050, L100.0100 ####[facility] [address] [place], [address] AST [Catalytic activity/Vol] 65 U/L High <=37 [facility] Comment on above: Performed By: #### L 500.4050, L100.0100 ####[facility] [address] [place], [address] Bilirubin [Mass/Vol] 4.15 mg/dL High 0.00-1.30 [facility] Comment on above: Performed By: #### L 500.4050, L100.0100 ####[facility] [address] [place], [address] BUN/CRE 13.0 RATIO Normal 10-20 [facility] Comment on above: Performed By: #### L 500.4050, L100.0100 ####[facility] [address] [place], [address] Calcium [Mass/Vol] 8.0 mg/dL Normal 7.6-11.0 [facility] Comment on above: Performed By: #### L 500.4050, L100.0100 ####[facility] [address] [place], [address] Chloride [Moles/Vol] 101 mmol/L Normal 98-108 [facility] Comment on above: Performed By: #### L 500.4050, L100.0100 ####[facility] [address] [place], [address] CO2 [Moles/Vol] 20.8 mmol/L Low 21.0-32.0 [facility] Comment on above: Performed By: #### L 500.4050, L100.0100 ####[facility] [address] [place], [address] Creatinine [Mass/Vol] 1.14 mg/dL Normal 0.70-1.20 [facility] [place] Comment on above: Performed By: #### L 500.4050, L100.0100 ####[facility] [address] [place], [address] ECRCL 78.45 ml/min Normal 50-250 [facility] Comment on above: Performed By: #### L 500.4050, L100.0100 ####[facility] [address] [place], [address] GAP 10 Normal 5-15 [facility] Comment on above: Performed By: #### L 500.4050, L100.0100 ####[facility] [address] [place], [address] GFR/1.73 sq M.predicted among non-blacks MDRD (S/P/Bld) [Vol rate/Area] 75 mL/min/{1.73_m2} Normal >60 [facility] Comment on above: Result Comment: mL/m in/1.73m2 CKD-EPI Creatinine Equation (2020) Performed By: #### L 500.4050, L100.0100 ####[facility] [address] [place], [address] Globulin (S) [Mass/Vol] 3.3 g/dL Normal 2.2-4.2 [facility] Comment on above: Performed By: #### L 500.4050, L100.0100 ####[facility] [address], [address] Glucose [Mass/Vol] 272 mg/dL High 70-99 [facility] Comment on above: Performed By: #### L 500.4050, L100.0100 ####[facility] [address] [place], [address] Potassium [Moles/Vol] 3.2 mmol/L Low 3.3-5.1 [facility] [place] Comment on above: Performed By: #### L 500.4050, L100.0100 ####[facility] [address] [place], [address] Sodium [Moles/Vol] 131 mmol/L Low 133-145 [facility] Comment on above: Performed By: #### L 500.4050, L100.0100 ####[facility] [address] [place], [address] T PROT 5.5 g/dL Low 5.9-8.4 [facility] Comment on above: Performed By: #### L 500.4050, L100.0100 ####[facility] [address] [place], [address] Urea nitrogen [Mass/Vol] 15 mg/dL Normal 4-19 [facility] Comment on above: Performed By: #### L 500.4050, L100.0100 ####[facility] [address] [place], [address] Discharge Instructionon - Discharge Instruction Normal [facility] [place] Bedside Glucoseon 02-26-2025 FINGERSTICK GLU 323 mg/dL High 74-106 [facility] Comment on above: Result Comment: BRISA MOROCHO OF PATIENT CARE PER NURSING PROTOCOL Performed By: #### L 501.080 ####[facility] [address] [place], [address] FINGERSTICK GLU 359 mg/dL High 74-106 [facility] Comment on above: Result Comment: BRISA GEMENT OF PATIENT CARE PER NURSING PROTOCOL Performed By: #### L 501.080 ####[facility] [address] [place], [address] FINGERSTICK GLU 344 mg/dL High 74-106 [facility] Comment on above: Result Comment: BRISA GEMENT OF PATIENT CARE PER NURSING PROTOCOL Performed By: #### L 501.080 ####[facility] [address] [place], [address] FINGERSTICK GLU 267 mg/dL High 74-106 [facility] Comment on above: Result Comment: BRISA GEMENT OF PATIENT CARE PER NURSING PROTOCOL Performed By: #### L 501.080 ####[facility] [address] [place], [address] Body Fluid Culton 02-26-2025 BFC Culture exhibits no growth. Normal [facility] Comment on above: Performed By: #### M 100.2900, M100.4001, M100.2000, L200.0200, L400.0001 ####[facility] [address] [place], [address] CBC W/Diff, Automatedon - Anisocytosis Ql (Bld) 2+ Normal [facility] [place] Comment on above: Performed By: #### L 100.0100, L500.4050 ####[facility] [address] [place], [address] SMEAR COMMENT SCANNED Normal [facility] Comment on above: Performed By: #### L 100.0100, L500.4050 ####[facility] [address] [place], [address] Comprehensive Metabolic Prof ilon 02-26-2025 Albumin [Mass/Vol] 2.4 g/dL Low 3.5-5.0 [facility] Comment on above: Performed By: #### L 100.0100, L500.4050 ####[facility] [address] [place], [address] Albumin/Globulin [Mass ratio] 0.7 {ratio} Low 0.9-2.4 [facility] Comment on above: Performed By: #### L 100.0100, L500.4050 ####[facility] [address] [place], [address] ALK PHOS 258 U/L High 40-129 [facility] Comment on above: Performed By: #### L 100.0100, L500.4050 ####[facility] [address] [place], [address] ALT [Catalytic activity/Vol] 50 U/L High <=46 [facility] Comment on above: Performed By: #### L 100.0100, L500.4050 ####[facility] [address] [place], [address] AST [Catalytic activity/Vol] 78 U/L High <=37 [facility] Comment on above: Performed By: #### L 100.0100, L500.4050 ####[facility] [address] [place], [address] Bilirubin [Mass/Vol] 5.33 mg/dL High 0.00-1.30 [facility] Comment on above: Performed By: #### L 100.0100, L500.4050 ####[facility] [address] [place], [address] BUN/CRE 12.9 RATIO Normal 10-20 [facility] Comment on above: Performed By: #### L 100.0100, L500.4050 ####[facility] [address] [place], [address] Calcium [Mass/Vol] 8.3 mg/dL Normal 7.6-11.0 [facility] Comment on above: Performed By: #### L 100.0100, L500.4050 ####[facility] [address] [place], [address] Chloride [Moles/Vol] 102 mmol/L Normal 98-108 [facility] Comment on above: Performed By: #### L 100.0100, L500.4050 ####[facility] [address] [place], [address] CO2 [Moles/Vol] 19.6 mmol/L Low 21.0-32.0 [facility] Comment on above: Performed By: #### L 100.0100, L500.4050 ####[facility] [address] [place], [address] Creatinine [Mass/Vol] 1.03 mg/dL Normal 0.70-1.20 [facility] [place] Comment on above: Result Comment: Icte daquan present, Results may be affected. Performed By: #### L 100.0100, L500.4050 ####[facility] [address] [place], [address] ECRCL 86.83 ml/min Normal 50-250 [facility] Comment on above: Performed By: #### L 100.0100, L500.4050 ####[facility] [address] [place], [address] GAP 12 Normal 5-15 [facility] Comment on above: Performed By: #### L 100.0100, L500.4050 ####[facility] [address] [place], [address] GFR/1.73 sq M.predicted among non-blacks MDRD (S/P/Bld) [Vol rate/Area] 84 mL/min/{1.73_m2} Normal >60 [facility] Comment on above: Result Comment: mL/m in/1.73m2 CKD-EPI Creatinine Equation (2020) Performed By: #### L 100.0100, L500.4050 ####[facility] [address] [place], [address] Globulin (S) [Mass/Vol] 3.6 g/dL Normal 2.2-4.2 [facility] Comment on above: Performed By: #### L 100.0100, L500.4050 ####[facility] [address] [place], [address] Glucose [Mass/Vol] 269 mg/dL High 70-99 [facility] Comment on above: Performed By: #### L 100.0100, L500.4050 ####[facility] [address] [place], [address] Potassium [Moles/Vol] 3.0 mmol/L Low 3.3-5.1 [facility] [place] Comment on above: Performed By: #### L 100.0100, L500.4050 ####[facility] [address] [place], [address] Sodium [Moles/Vol] 133 mmol/L Normal 133-145 [facility] Comment on above: Performed By: #### L 100.0100, L500.4050 ####[facility] [address] [place], [address] T PROT 6.0 g/dL Normal 5.9-8.4 [facility] Comment on above: Performed By: #### L 100.0100, L500.4050 ####[facility] [address] [place], [address] Urea nitrogen [Mass/Vol] 13 mg/dL Normal 4-19 [facility] Comment on above: Performed By: #### L 100.0100, L500.4050 ####[facility] [address] [place], [address] Gram Stainon 02-26-2025 GS Centrifuged Specimen ? Culture performed on centrifuged specimen Gram Stain No organisms seen Rare White Blood Cells Normal [facility] Comment on above: Performed By: #### M 100.2900, M100.4001, M100.2000, L200.0200, L400.0001 ####[facility] [address] [place], [address] Prothrombin Time w/INRon INR Coag (PPP) [Relative time] 2.1 {INR} Normal [facility] Comment on above: Order Comment: Comme nts: Add onto previous labs if possible Performed By: #### L 300.3900 ####[facility] [address] [place], [address] PT Coag (PPP) [Time] 23.7 s High 11.7-14.9 [facility] Comment on above: Order Comment: Comme nts: Add onto previous labs if possible Performed By: #### L 300.3900 ####[facility] [address] [place], [address] Ammoniaon 02-25-2025 Ammonia (P) [Moles/Vol] 127.0 umol/L High 16-60 [facility] Comment on above: Performed By: #### L 500.4050, L503.5510, L100.0100, L501.2450 ####[facility] [address] [place], [address] Bedside Glucoseon 02-25-2025 FINGERSTICK GLU 271 mg/dL High 74-106 [facility] Comment on above: Result Comment: BRISA MOROCHO OF PATIENT CARE PER NURSING PROTOCOL Performed By: #### L 501.080 ####[facility] [address] [place], [address] FINGERSTICK GLU 192 mg/dL High 74-106 [facility] Comment on above: Result Comment: BRISA MOROCHO OF PATIENT CARE PER NURSING PROTOCOL Performed By: #### L 501.080 ####[facility] [address] [place], [address] CBC W/Diff, Automatedon 07- Anisocytosis Ql (Bld) 1+ Normal [facility] [place] Comment on above: Performed By: #### L 500.4050, L503.5510, L100.0100, L501.2450 ####[facility] [address] [place], [address] Comprehensive Metabolic Prof gaon 02-25-2024 Albumin [Mass/Vol] 2.0 g/dL Low 3.5-5.0 [facility] Comment on above: Performed By: #### L 500.4050, L503.5510, L100.0100, L501.2450 ####[facility] [address] [place], [address] Albumin/Globulin [Mass ratio] 0.5 {ratio} Low 0.9-2.4 [facility] Comment on above: Performed By: #### L 500.4050, L503.5510, L100.0100, L501.2450 ####[facility] [address] [place], [address] ALK PHOS 249 U/L High 40-129 [facility] Comment on above: Performed By: #### L 500.4050, L503.5510, L100.0100, L501.2450 ####[facility] [address] [place], [address] ALT [Catalytic activity/Vol] 51 U/L High <=46 [facility] Comment on above: Result Comment: Hemo lysis present, Results??could be affected.?? Performed By: #### L 500.4050, L503.5510, L100.0100, L501.2450 ####[facility] [address] [place], [address] AST [Catalytic activity/Vol] 97 U/L High <=37 [facility] Comment on above: Result Comment: Hemo lysis present, Results??could be affected.?? Performed By: #### L 500.4050, L503.5510, L100.0100, L501.2450 ####[facility] [address] [place], [address] Bilirubin [Mass/Vol] 4.99 mg/dL High 0.00-1.30 [facility] Comment on above: Performed By: #### L 500.4050, L503.5510, L100.0100, L501.2450 ####[facility] [address] [place], [address] BUN/CRE 8.9 RATIO Low 10-20 [facility] Comment on above: Performed By: #### L 500.4050, L503.5510, L100.0100, L501.2450 ####[facility] [address] [place], [address] Calcium [Mass/Vol] 8.1 mg/dL Normal 7.6-11.0 [facility] Comment on above: Performed By: #### L 500.4050, L503.5510, L100.0100, L501.2450 ####[facility] [address] [place], [address] Chloride [Moles/Vol] 102 mmol/L Normal 98-108 [facility] Comment on above: Performed By: #### L 500.4050, L503.5510, L100.0100, L501.2450 ####[facility] [address] [place], [address] CO2 [Moles/Vol] 17.5 mmol/L Low 21.0-32.0 [facility] Comment on above: Performed By: #### L 500.4050, L503.5510, L100.0100, L501.2450 ####[facility] [address] [place], [address] Creatinine [Mass/Vol] 1.07 mg/dL Normal 0.70-1.20 [facility] [place] Comment on above: Result Comment: Icte daquan present, Results may be affected. Performed By: #### L 500.4050, L503.5510, L100.0100, L501.2450 ####[facility] [address] [place], [address] ECRCL 86.96 ml/min Normal 50-250 [facility] Comment on above: Performed By: #### L 500.4050, L503.5510, L100.0100, L501.2450 ####[facility] [address] [place], [address] GAP 12 Normal 5-15 [facility] Comment on above: Performed By: #### L 500.4050, L503.5510, L100.0100, L501.2450 ####[facility] [address] [place], [address] GFR/1.73 sq M.predicted among non-blacks MDRD (S/P/Bld) [Vol rate/Area] 80 mL/min/{1.73_m2} Normal >60 [facility] Comment on above: Result Comment: mL/m in/1.73m2 CKD-EPI Creatinine Equation (2020) Performed By: #### L 500.4050, L503.5510, L100.0100, L501.2450 ####[facility] [address] [place], [address] Globulin (S) [Mass/Vol] 3.9 g/dL Normal 2.2-4.2 [facility] Comment on above: Performed By: #### L 500.4050, L503.5510, L100.0100, L501.2450 ####[facility] [address] [place], [address] Glucose [Mass/Vol] 225 mg/dL High 70-99 [facility] Comment on above: Performed By: #### L 500.4050, L503.5510, L100.0100, L501.2450 ####[facility] [address] [place], [address] Potassium [Moles/Vol] 3.7 mmol/L Normal 3.3-5.1 [facility] [place] Comment on above: Result Comment: Hemo lysis present, Results??could be affected.?? Performed By: #### L 500.4050, L503.5510, L100.0100, L501.2450 ####[facility] [address] [place], [address] Sodium [Moles/Vol] 131 mmol/L Low 133-145 [facility] Comment on above: Performed By: #### L 500.4050, L503.5510, L100.0100, L501.2450 ####[facility] [address] [place], [address] T PROT 5.9 g/dL Normal 5.9-8.4 [facility] Comment on above: Performed By: #### L 500.4050, L503.5510, L100.0100, L501.2450 ####[facility] [address] [place], [address] Urea nitrogen [Mass/Vol] 10 mg/dL Normal 4-19 [facility] Comment on above: Performed By: #### L 500.4050, L503.5510, L100.0100, L501.2450 ####[facility] [address] [place], [address] Emergency Department Summary on 02-25-2025 Emergency Department Summary Normal [facility] H AND P Exam - Hospitaliston 02-25-2025 H&P Exam - Hospitalist Normal [facility] Lipaseon 02-25-2025 Lipase [Catalytic activity/Vol] 64 U/L Normal 13-75 [facility] Comment on above: Result Comment: Siddhartha bhat note:LIPASE revised reference range effective 22.New Lipase methodology. Expected to produce lower valuesthan the previous assay method.NEW Reference Range: 13 - 75 U/L Performed By: #### L 500.4050, L503.5510, L100.0100, L501.2450 ####[facility] [address] [place], [address] MR/CON.PCM.GIon 02-25-2025 MR/CON.PCM.GI Normal [facility] Urinalysis, Completeon 02-25 RBC > 100 SEEN Normal 0-5 [facility] Comment on above: Order Comment: COLOR OF URINE MAY AFFECT DIPSTICK RESULTS.CLEAN CATCH Result Comment: Micr oscopic field is filled. Other elements may beobscured. Performed By: #### M 100.2900, M100.4001, M100.2000, L200.0200, L400.0001 ####[facility] [address] [place], [address] WBC >100 SEEN Normal 0-5 [facility] Comment on above: Order Comment: COLOR OF URINE MAY AFFECT DIPSTICK RESULTS.CLEAN CATCH Result Comment: Micr oscopic field is filled. Other elements may beobscured. Performed By: #### M 100.2900, M100.4001, M100.2000, L200.0200, L400.0001 ####[facility] [address] [place], [address] YEAST 2+ /hpf Normal None Seen [facility] Comment on above: Order Comment: COLOR OF URINE MAY AFFECT DIPSTICK RESULTS.CLEAN CATCH Performed By: #### M 100.2900, M100.4001, M100.2000, L200.0200, L400.0001 ####[facility] [address] [place], [address] BACTERIA 0 SEEN Normal None Seen [facility] Comment on above: Order Comment: COLOR OF URINE MAY AFFECT DIPSTICK RESULTS.CLEAN CATCH Performed By: #### M 100.2900, M100.4001, M100.2000, L200.0200, L400.0001 ####[facility] [address] [place], [address] EPI,SQUAMOUS 0 SEEN Normal 0-5 [facility] Comment on above: Order Comment: COLOR OF URINE MAY AFFECT DIPSTICK RESULTS.CLEAN CATCH Performed By: #### M 100.2900, M100.4001, M100.2000, L200.0200, L400.0001 ####[facility] [address] [place], [address] Mucus Ql (Urine sed) 0 SEEN Normal [facility] Comment on above: Order Comment: COLOR OF URINE MAY AFFECT DIPSTICK RESULTS.CLEAN CATCH Performed By: #### M 100.2900, M100.4001, M100.2000, L200.0200, L400.0001 ####[facility] [address] [place], [address] Hepatitis Panel Acuteon - COMMENT Comment Normal . [facility] Comment on above: Result Comment: Not infected with HCV unless early or acute infection issuspected (which may be delayed in an immunocompromisedindividual), or other evidence exists to indicate HCVinfection.Performed at: - Lab[address] [id number] Director: Buck Ivy PhD, Phone: [phone] Performed By: #### L 100.0100, L500.4050, L3000.0375, L503.3510 ####[facility] [address] [place], [address] HEP B CORE,IgM Negative Normal Negative [facility] Comment on above: Performed By: #### L 100.0100, L500.4050, L3000.0375, L503.5510 ####[facility] [address] [place], [address] HEP B SURF AG Negative Normal Negative [facility] Comment on above: Performed By: #### L 100.0100, L500.4050, L3000.0375, L503.5510 ####[facility] [address] [place], [address] HEP C VIRUS AB Non-Reactive Normal Non Reactive [facility] Comment on above: Performed By: #### L 100.0100, L500.4050, L3000.0375, L503.5510 ####[facility] [address] [place], [address] HEPATITIS A-IgM Negative Normal Negative [facility] Comment on above: Result Comment: A ne gative anti-HAV IgM result suggests no recent orcurrent HAV infection. Performed By: #### L 100.0100, L500.4050, L3000.0375, L503.5510 ####[facility] [address] [place], [address] Anion gap in Serum or Plasma Ordered By: Jae Ash on 02-17-2025 Anion gap [Moles/Vol] 10 mmol/L 5-15 [facility] BUN/creatinine ratioOrdered By: Jae Ash on 02-17-2025 Urea nitrogen/Creatinine [Mass ratio] 9.7 mg/mg Low 10-20 [facility] Bedside Glucoseon 02-17-2025 FINGERSTICK GLU 194 mg/dL High 74-106 [facility] Comment on above: Result Comment: BRISA MOROCHO OF PATIENT CARE PER NURSING PROTOCOL Performed By: #### L 501.080 ####[facility] [address] [place], [address] Bilirubin, totalOrdered By: Jae Ash on 02-17-2025 Bilirubin [Mass/Vol] 6.79 mg/dL High 0.00-1.30 [facility] Blood manual differential co mment interpretation (narrative result)Ordered By: Jae Ash on 02-17-2025 Manual differential comment Marco Antonio (Bld) [Interp] SCANNED [facility] CBC-Complete Blood Cnt No Di ffon 02-17-2025 Erythrocyte distribution width (RBC) [Ratio] 19.0 % High 11.6-14.6 [facility] Comment on above: Performed By: #### L 500.4050, L100.4500, L300.3900, L100.0500 ####[facility] [address] [place], [address] Hematocrit (Bld) [Volume fraction] 21.9 % Low 40-54 [facility] Comment on above: Performed By: #### L 500.4050, L100.4500, L300.3900, L100.0500 ####[facility] [address] [place], [address] Hemoglobin (Bld) [Mass/Vol] 7.7 g/dL Low 13.0-16.5 [facility] Comment on above: Performed By: #### L 500.4050, L100.4500, L300.3900, L100.0500 ####[facility] [address] [place], [address] MCH (RBC) [Entitic mass] 30.0 pg Normal 27.0-32.0 [facility] Comment on above: Performed By: #### L 500.4050, L100.4500, L300.3900, L100.0500 ####[facility] [address] [place], [address] MCHC (RBC) [Mass/Vol] 35.2 g/dL Normal 32-36 [facility] Comment on above: Performed By: #### L 500.4050, L100.4500, L300.3900, L100.0500 ####[facility] [address] [place], [address] MCV (RBC) [Entitic vol] 85.2 fL Normal 80-94 [facility] Comment on above: Performed By: #### L 500.4050, L100.4500, L300.3900, L100.0500 ####[facility] [address] [place], [address] Platelet mean volume (Bld) [Entitic vol] 11.7 fL Normal 6.2-12.0 [facility] Comment on above: Performed By: #### L 500.4050, L100.4500, L300.3900, L100.0500 ####[facility] [address] [place], [address] Platelets (Bld) [#/Vol] 90 10*3/uL Low 150-450 [facility] Comment on above: Performed By: #### L 500.4050, L100.4500, L300.3900, L100.0500 ####[facility] [address] [place], [address] RBC (Bld) [#/Vol] 2.57 10*6/uL Low 4.6-6.2 [facility] Comment on above: Performed By: #### L 500.4050, L100.4500, L300.3900, L100.0500 ####[facility] [address] [place], [address] RDW SD 51.1 fl High 35.1-43.9 [facility] Comment on above: Performed By: #### L 500.4050, L100.4500, L300.3900, L100.0500 ####[facility] [address] [place], [address] WBC (Bld) [#/Vol] 8.5 10*3/uL Normal 4.4-11.0 [facility] Comment on above: Performed By: #### L 500.4050, L100.4500, L300.3900, L100.0500 ####[facility] [address] [place], [address] Carbon dioxide, total [Moles /volume] in Central venous bloodOrdered By: Jae Ash on 02-17-2025 CO2 [Moles/Vol] 22.1 mmol/L 21.0-32.0 [facility] Chloride assayOrdered By: Sky Ash on 02-17-2025 Chloride [Moles/Vol] 100 mmol/L 98-108 [facility] Comprehensive Metabolic Prof ilon 02-17-2025 Albumin [Mass/Vol] 2.1 g/dL Low 3.5-5.0 [facility] Comment on above: Performed By: #### L 500.4050, L100.4500, L300.3900, L100.0500 ####[facility] [address] [place], [address] Albumin/Globulin [Mass ratio] 0.7 {ratio} Low 0.9-2.4 [facility] Comment on above: Performed By: #### L 500.4050, L100.4500, L300.3900, L100.0500 ####[facility] [address] [place], [address] ALK PHOS 278 U/L High 40-129 [facility] Comment on above: Performed By: #### L 500.4050, L100.4500, L300.3900, L100.0500 ####[facility] [address] [place], [address] ALT [Catalytic activity/Vol] 46 U/L Normal <=46 [facility] Comment on above: Performed By: #### L 500.4050, L100.4500, L300.3900, L100.0500 ####[facility] [address] [place], [address] AST [Catalytic activity/Vol] 99 U/L High <=37 [facility] Comment on above: Result Comment: Hemo lysis present, Results??could be affected.?? Performed By: #### L 500.4050, L100.4500, L300.3900, L100.0500 ####[facility] [address] [place], [address] Bilirubin [Mass/Vol] 6.79 mg/dL High 0.00-1.30 [facility] Comment on above: Performed By: #### L 500.4050, L100.4500, L300.3900, L100.0500 ####[facility] [address] [place], [address] BUN/CRE 9.7 RATIO Low 10-20 [facility] Comment on above: Performed By: #### L 500.4050, L100.4500, L300.3900, L100.0500 ####[facility] [address] [place], [address] Calcium [Mass/Vol] 7.3 mg/dL Low 7.6-11.0 [facility] Comment on above: Performed By: #### L 500.4050, L100.4500, L300.3900, L100.0500 ####[facility] [address] [place], [address] Chloride [Moles/Vol] 100 mmol/L Normal 98-108 [facility] Comment on above: Performed By: #### L 500.4050, L100.4500, L300.3900, L100.0500 ####[facility] [address] [place], [address] CO2 [Moles/Vol] 22.1 mmol/L Normal 21.0-32.0 [facility] Comment on above: Performed By: #### L 500.4050, L100.4500, L300.3900, L100.0500 ####[facility] [address] [place], [address] Creatinine [Mass/Vol] 1.16 mg/dL Normal 0.70-1.20 [facility] [place] Comment on above: Result Comment: Icte dqauan present, Results may be affected. Performed By: #### L 500.4050, L100.4500, L300.3900, L100.0500 ####[facility] [address] [place], [address] ECRCL 79.19 ml/min Normal 50-250 [facility] Comment on above: Performed By: #### L 500.4050, L100.4500, L300.3900, L100.0500 ####[facility] [address] [place], [address] GAP 10 Normal 5-15 [facility] Comment on above: Performed By: #### L 500.4050, L100.4500, L300.3900, L100.0500 ####[facility] [address] [place], [address] GFR/1.73 sq M.predicted among non-blacks MDRD (S/P/Bld) [Vol rate/Area] 73 mL/min/{1.73_m2} Normal >60 [facility] Comment on above: Result Comment: mL/m in/1.73m2 CKD-EPI Creatinine Equation (2020) Performed By: #### L 500.4050, L100.4500, L300.3900, L100.0500 ####[facility] [address] [place], [address] Globulin (S) [Mass/Vol] 3.2 g/dL Normal 2.2-4.2 [facility] Comment on above: Performed By: #### L 500.4050, L100.4500, L300.3900, L100.0500 ####[facility] [address] [place], [address] Glucose [Mass/Vol] 246 mg/dL High 70-99 [facility] Comment on above: Performed By: #### L 500.4050, L100.4500, L300.3900, L100.0500 ####[facility] [address] [place], [address] Potassium [Moles/Vol] 3.6 mmol/L Normal 3.3-5.1 [facility] [place] Comment on above: Result Comment: Hemo lysis present, Results??could be affected.?? Performed By: #### L 500.4050, L100.4500, L300.3900, L100.0500 ####[facility] [address] [place], [address] Sodium [Moles/Vol] 132 mmol/L Low 133-145 [facility] Comment on above: Performed By: #### L 500.4050, L100.4500, L300.3900, L100.0500 ####[facility] [address] [place], [address] T PROT 5.3 g/dL Low 5.9-8.4 [facility] Comment on above: Performed By: #### L 500.4050, L100.4500, L300.3900, L100.0500 ####[facility] [address] [place], [address] Urea nitrogen [Mass/Vol] 11 mg/dL Normal 4-19 [facility] Comment on above: Performed By: #### L 500.4050, L100.4500, L300.3900, L100.0500 ####[facility] [address] [place], [address] Differential Commenton 02-17 SMEAR COMMENT SCANNED Normal [facility] Comment on above: Result Comment: MODE RATE THROMBOCYTOPENIA NOTED Performed By: #### L 500.4050, L100.4500, L300.3900, L100.0500 ####[facility] [address] [place], [place], [id number] Discharge Instructionon 02-01 Discharge Instruction Normal [facility] Erythrocyte distribution wid th ratioOrdered By: Jae Ash on 02-17-2025 Erythrocyte distribution width (RBC) [Ratio] 19.0 % High 11.6-14.6 [facility] Erythrocyte distribution wid th standard deviationOrdered By: Jae Ash on 02-17-2025 Erythrocyte distribution width (RBC) [Ratio] 51.1 fl High 35.1-43.9 [facility] Glomerular filtration rate ( GFR) estimation/1.73 sq m using serum, plasma, or whole bOrdered By: Jae Ash on 02-17-2025 GFR/1.73 sq M.predicted among non-blacks MDRD (S/P/Bld) [Vol rate/Area] 73 mL/min/{1.73_m2} >60 [facility] deOrdered By: Anurag Irene on 02-17-2025 Glucose [Mass/Vol] 194 mg/dL High 74-106 [facility] Hematocrit Auto (Bld) [Volum e fraction]Ordered By: Jae Ash on 02-17-2025 Hematocrit (Bld) [Volume fraction] 21.9 % Low 40-54 [facility] Hemoglobin measurementOrdere d By: Jae Ash on 02-17-2025 Hemoglobin (Bld) [Mass/Vol] 7.7 g/dL Low 13.0-16.5 [facility] MCV (mean corpuscular volume ) determinationOrdered By: Jae Ash on 02-17-2025 MCV (RBC) [Entitic vol] 85.2 fL 80-94 [facility] MR/CON.PCM.GIon 02-17-2025 MR/CON.PCM.GI Normal [facility] Mean corpuscular hemoglobin (MCH) determinationOrdered By: Jae Ash on 02-17-2025 MCH (RBC) [Entitic mass] 30.0 pg 27.0-32.0 [facility] No Panel InformationOrdered By: Jae Ash on 02-17-2025 99 U/L High <38 [facility] Platelet countOrdered By: Sky Ash on 02-17-2025 Platelets (Bld) [#/Vol] 90 10*3/uL Low 150-450 [facility] Potassium measurement (mass/ volume)Ordered By: Jae Ash on 02-17-2025 Potassium (Unsp spec) [Mass/Vol] 3.6 mmol/L 3.3-5.1 [facility] Prothrombin Time w/INRon INR Coag (PPP) [Relative time] 2.0 {INR} Normal [facility] Comment on above: Performed By: #### L 500.4050, L100.4500, L300.3900, L100.0500 ####[facility] [address] [place], [place], [id number] PT Coag (PPP) [Time] 22.8 s High 11.7-14.9 [facility] Comment on above: Performed By: #### L 500.4050, L100.4500, L300.3900, L100.0500 ####[facility] [address] [place], [address] Prothrombin timeOrdered By: Jae Ash on 02-17-2025 PT Coag (PPP) [Time] 22.8 s High 11.7-14.9 [facility] RBC Auto (Bld) [#/Vol]Ordere d By: Jae Ash on 02-17-2025 RBC (Bld) [#/Vol] 2.57 10*6/uL Low 4.6-6.2 [facility] Serum creatinine measurement (mass/volume)Ordered By: Jae Ash on 02-17-2025 Creatinine [Mass/Vol] 1.16 mg/dL 0.70-1.20 [facility] [place] Serum globulin measurementOr dered By: Jae Ash on 02-17-2025 Globulin (S) [Mass/Vol] 3.2 g/dL 2.2-4.2 [facility] Serum glucose measurement (m ass/volume)Ordered By: Jae Ash on 02-17-2025 Glucose [Mass/Vol] 246 mg/dL High 70-99 [facility] Serum or plasma alanine thomas otransferase (ALT) measurementOrdered By: Jae Ash on 02-17-2025 ALT [Catalytic activity/Vol] 46 U/L <47 [facility] Serum or plasma albumin roosevelt urement (mass/volume)Ordered By: Jae Ash on 02-17-2025 Albumin [Mass/Vol] 2.1 g/dL Low 3.5-5.0 [facility] Serum or plasma albumin/glob ulin mass ratioOrdered By: Jae Ash on 02-17-2025 Albumin/Globulin [Mass ratio] 0.7 {ratio} Low 0.9-2.4 [facility] Serum or plasma alkaline kendrick sphatase measurementOrdered By: Jae Ash on 02-17-2025 ALP [Catalytic activity/Vol] 278 U/L High 40-129 [facility] Serum or plasma calcium roosevelt urement (mass/volume)Ordered By: Jae Ash on 02-17-2025 Calcium [Mass/Vol] 7.3 mg/dL Low 7.6-11.0 [facility] Serum or plasma urea nitroge n measurement (mass/volume)Ordered By: Jae Ash on 02-17-2025 Urea nitrogen [Mass/Vol] 11 mg/dL 4-19 [facility] Sodium levelOrdered By: Pasha Ash on 02-17-2025 Sodium [Moles/Vol] 132 mmol/L Low 133-145 [facility] Total proteinOrdered By: Diane Ash on 02-17-2025 Protein [Mass/Vol] 5.3 g/dL Low 5.9-8.4 [facility] White blood cell (WBC) count Ordered By: Jae Ash on 02-17-2025 WBC (Bld) [#/Vol] 8.5 10*3/uL 4.4-11.0 [facility] Absolute lymphocyte countOrd ered By: Jerald Sherwood on 02-16-2025 Lymphocytes Auto (Unsp spec) [#/Vol] 1.28 10*3/uL 0.83-4.51 [facility] Anion gap in Serum or Plasma Ordered By: Jerald Sherwood on 02-16-2025 Anion gap [Moles/Vol] 12 mmol/L 5-15 [facility] Automated lymphocyte count a s percentage of total leukocytesOrdered By: Jerald Sherwood on 02-16-2025 Lymphocytes/100 WBC Auto (Unsp spec) 15.1 % Low 19-41 [facility] BUN/creatinine ratioOrdered By: Jerald Sherwood on 02-16-2025 Urea nitrogen/Creatinine [Mass ratio] 9.4 mg/mg Low 10-20 [facility] Basophil percentageOrdered B y: Jerald Sherwood on 02-16-2025 Basophils/100 WBC (Bld) 0.5 % 0-1 [facility] Bedside Glucoseon 02-16-2025 FINGERSTICK GLU 216 mg/dL High 74-106 [facility] Comment on above: Result Comment: BRISA MOROCHO OF PATIENT CARE PER NURSING PROTOCOL Performed By: #### L 501.080 ####[facility] [address] [facility] [address] [place], [place], [id number] Bilirubin directOrdered By: Jae Ash on 02-16-2025 Bilirubin.direct [Mass/Vol] 5.10 mg/dL High 0.00-0.30 [facility] Bilirubin, Directon 02-17-20 25 Bilirubin.direct [Mass/Vol] 5.10 mg/dL High 0.00-0.30 [facility] Comment on above: Performed By: #### L 504.2610, L501.4700 ####[facility] [address] [place], [place], [id number] Bilirubin, totalOrdered By: Jerald Sherwood on 02-16-2025 Bilirubin [Mass/Vol] 7.29 mg/dL High 0.00-1.30 [facility] CBC W/Diff, Automatedon 02-01 Absolute Lymph 1.28 X10 3/uL Normal 0.83-4.51 [facility] Comment on above: Performed By: #### L 100.0100, L500.4050, L3000.0375, L503.5510 ####[facility] [address] [place], [address] Absolute Neut 5.7 X10 3/uL Normal 2.0-7.7 [facility] Comment on above: Performed By: #### L 100.0100, L500.4050, L3000.0375, L503.5510 ####[facility] [address] [place], [address] Basophils/100 WBC (Bld) 0.5 % Normal 0-1 [facility] Comment on above: Performed By: #### L 100.0100, L500.4050, L3000.0375, L503.5510 ####[facility] [address] [place], [address] Eosinophils/100 WBC (Bld) 5.4 % High 0-5 [facility] Comment on above: Performed By: #### L 100.0100, L500.4050, L3000.0375, L503.5510 ####[facility] [address] [place], [address] Erythrocyte distribution width (RBC) [Ratio] 18.7 % High 11.6-14.6 [facility] Comment on above: Performed By: #### L 100.0100, L500.4050, L3000.0375, L503.5510 ####[facility] [address] [place], [address] Hematocrit (Bld) [Volume fraction] 24.8 % Low 40-54 [facility] Comment on above: Performed By: #### L 100.0100, L500.4050, L3000.0375, L503.5510 ####[facility] [address] [place], [address] Hemoglobin (Bld) [Mass/Vol] 8.2 g/dL Low 13.0-16.5 [facility] Comment on above: Performed By: #### L 100.0100, L500.4050, L3000.0375, L503.5510 ####[facility] [address] [place], [address] IG% 0.200 Normal 0.0-0.9 [facility] Comment on above: Result Comment: IG% - Immature Granulocytes (promyelocytes, myelocytes andmetamyelocytes) > 1% indicates that a LEFT SHIFT is Present. Performed By: #### L 100.0100, L500.4050, L3000.0375, L503.5510 ####[facility] [address] [place], [address] Lymphocytes/100 WBC (Bld) 15.1 % Low 19-41 [facility] Comment on above: Performed By: #### L 100.0100, L500.4050, L3000.0375, L503.5510 ####[facility] [address] [place], [address] MCH (RBC) [Entitic mass] 28.9 pg Normal 27.0-32.0 [facility] Comment on above: Performed By: #### L 100.0100, L500.4050, L3000.0375, L503.5510 ####[facility] [address] [place], [address] MCHC (RBC) [Mass/Vol] 33.1 g/dL Normal 32-36 [facility] Comment on above: Performed By: #### L 100.0100, L500.4050, L3000.0375, L503.5510 ####[facility] [address] [place], [address] MCV (RBC) [Entitic vol] 87.3 fL Normal 80-94 [facility] Comment on above: Performed By: #### L 100.0100, L500.4050, L3000.0375, L503.5510 ####[facility] [address] [place], [address] Monocytes/100 WBC (Bld) 11.7 % High 0-10 [facility] Comment on above: Performed By: #### L 100.0100, L500.4050, L3000.0375, L503.5510 ####[facility] [address] [place], [address] Neutrophils/100 WBC (Bld) 67.1 % Normal 47-70 [facility] Comment on above: Performed By: #### L 100.0100, L500.4050, L3000.0375, L503.5510 ####[facility] [address] [place], [address] Nucleated RBC (Bld) [#/Vol] 0 10*3/uL Normal 0-5 [facility] Comment on above: Performed By: #### L 100.0100, L500.4050, L3000.0375, L503.5510 ####[facility] [address] [place], [address] Platelet mean volume (Bld) [Entitic vol] 12.0 fL Normal 6.2-12.0 [facility] Comment on above: Performed By: #### L 100.0100, L500.4050, L3000.0375, L503.5510 ####[facility] [address] [place], [address] Platelets (Bld) [#/Vol] 106 10*3/uL Low 150-450 [facility] Comment on above: Performed By: #### L 100.0100, L500.4050, L3000.0375, L503.5510 ####[facility] [address] [place], [address] RBC (Bld) [#/Vol] 2.84 10*6/uL Low 4.6-6.2 [facility] Comment on above: Performed By: #### L 100.0100, L500.4050, L3000.0375, L503.5510 ####[facility] [address] [place], [address] RDW SD 53.5 fl High 35.1-43.9 [facility] Comment on above: Performed By: #### L 100.0100, L500.4050, L3000.0375, L503.5510 ####[facility] [address] [place], [address] WBC (Bld) [#/Vol] 8.5 10*3/uL Normal 4.4-11.0 [facility] Comment on above: Performed By: #### L 100.0100, L500.4050, L3000.0375, L503.5510 ####[facility] [address] [place], [address] Carbon dioxide, total [Moles /volume] in Central venous bloodOrdered By: Jerald Sherwood on 02-16-2025 CO2 [Moles/Vol] 24.1 mmol/L 21.0-32.0 [facility] Chloride assayOrdered By: Paulette Sherwood on 02-16-2025 Chloride [Moles/Vol] 99 mmol/L 98-108 [facility] Comprehensive Metabolic Prof ilon 02-16-2025 Albumin [Mass/Vol] 2.3 g/dL Low 3.5-5.0 [facility] Comment on above: Performed By: #### L 100.0100, L500.4050, L3000.0375, L503.5510 ####[facility] [address] [place], [address] Albumin/Globulin [Mass ratio] 0.7 {ratio} Low 0.9-2.4 [facility] Comment on above: Performed By: #### L 100.0100, L500.4050, L3000.0375, L503.5510 ####[facility] [address] [place], [address] ALK PHOS 310 U/L High 40-129 [facility] Comment on above: Performed By: #### L 100.0100, L500.4050, L3000.0375, L503.5510 ####[facility] [address] [place], [address] ALT [Catalytic activity/Vol] 51 U/L High <=46 [facility] Comment on above: Performed By: #### L 100.0100, L500.4050, L3000.0375, L503.5510 ####[facility] [address] [place], [address] AST [Catalytic activity/Vol] 109 U/L High <=37 [facility] Comment on above: Performed By: #### L 100.0100, L500.4050, L3000.0375, L503.5510 ####[facility] [address] [place], [address] Bilirubin [Mass/Vol] 7.29 mg/dL High 0.00-1.30 [facility] Comment on above: Performed By: #### L 100.0100, L500.4050, L3000.0375, L503.5510 ####[facility] [address] [place], [address] BUN/CRE 9.4 RATIO Low 10-20 [facility] Comment on above: Performed By: #### L 100.0100, L500.4050, L3000.0375, L503.5510 ####[facility] [address] [place], [address] Calcium [Mass/Vol] 7.8 mg/dL Normal 7.6-11.0 [facility] Comment on above: Performed By: #### L 100.0100, L500.4050, L3000.0375, L503.5510 ####[facility] [address] [place], [address] Chloride [Moles/Vol] 99 mmol/L Normal 98-108 [facility] Comment on above: Performed By: #### L 100.0100, L500.4050, L3000.0375, L503.5510 ####[facility] [address] [place], [address] CO2 [Moles/Vol] 24.1 mmol/L Normal 21.0-32.0 [facility] Comment on above: Performed By: #### L 100.0100, L500.4050, L3000.0375, L503.5510 ####[facility] [address] [place], [address] Creatinine [Mass/Vol] 1.30 mg/dL High 0.70-1.20 [facility] Comment on above: Result Comment: Icte daquan present, Results may be affected. Performed By: #### L 100.0100, L500.4050, L3000.0375, L503.5510 ####[facility] [address] [place], [address] GAP 12 Normal 5-15 [facility] Comment on above: Performed By: #### L 100.0100, L500.4050, L3000.0375, L503.5510 ####[facility] [address] [place], [address] GFR/1.73 sq M.predicted among non-blacks MDRD (S/P/Bld) [Vol rate/Area] 64 mL/min/{1.73_m2} Normal >60 [facility] Comment on above: Result Comment: mL/m in/1.73m2 CKD-EPI Creatinine Equation (2020) Performed By: #### L 100.0100, L500.4050, L3000.0375, L503.5510 ####[facility] [address] [place], [address] Globulin (S) [Mass/Vol] 3.5 g/dL Normal 2.2-4.2 [facility] Comment on above: Performed By: #### L 100.0100, L500.4050, L3000.0375, L503.5510 ####[facility] [address] [place], [address] Glucose [Mass/Vol] 250 mg/dL High 70-99 [facility] Comment on above: Performed By: #### L 100.0100, L500.4050, L3000.0375, L503.5510 ####[facility] [address] [place], [address] Potassium [Moles/Vol] 3.1 mmol/L Low 3.3-5.1 [facility] Comment on above: Performed By: #### L 100.0100, L500.4050, L3000.0375, L503.5510 ####[facility] [address] [place], [address] Sodium [Moles/Vol] 135 mmol/L Normal 133-145 [facility] Comment on above: Performed By: #### L 100.0100, L500.4050, L3000.0375, L503.5510 ####[facility] [address] [place], [address] T PROT 5.8 g/dL Low 5.9-8.4 [facility] Comment on above: Performed By: #### L 100.0100, L500.4050, L3000.0375, L503.5510 ####[facility] [address] [place], [address] Urea nitrogen [Mass/Vol] 12 mg/dL Normal 4-19 [facility] Comment on above: Performed By: #### L 100.0100, L500.4050, L3000.0375, L503.5510 ####[facility] [address] [place], [address] Emergency Department Summary on 02-16-2025 Emergency [address] Normal [facility] Eosinophil percentageOrdered By: Jerald Sherwood on 02-16-2025 Eosinophils/100 WBC (Bld) 5.4 % High 0-5 [facility] Erythrocyte distribution wid th ratioOrdered By: Jerald Sherwood on 02-16-2025 Erythrocyte distribution width (RBC) [Ratio] 18.7 % High 11.6-14.6 [facility] Erythrocyte distribution wid th standard deviationOrdered By: Jerald Sherwood on 02-16-2025 Erythrocyte distribution width (RBC) [Ratio] 53.5 fl High 35.1-43.9 [facility] Glomerular filtration rate ( GFR) estimation/1.73 sq m using serum, plasma, or whole bOrdered By: Jerald Sherwood on 02-16-2025 GFR/1.73 sq M.predicted among non-blacks MDRD (S/P/Bld) [Vol rate/Area] 64 mL/min/{1.73_m2} >60 [facility] H AND P Exam - Hospitaliston 02-16-2025 H&P Exam - Hospitalist Normal [facility] Hematocrit Auto (Bld) [Volum e fraction]Ordered By: Jerald Sherwood on 02-16-2025 Hematocrit (Bld) [Volume fraction] 24.8 % Low 40-54 [facility] Hemoglobin measurementOrdere d By: Jerald Sherwood on 02-16-2025 Hemoglobin (Bld) [Mass/Vol] 8.2 g/dL Low 13.0-16.5 [facility] Immature granulocytes/100 WB C Auto (Bld)Ordered By: Jerald Sherwood on 02-16-2025 Immature granulocytes/100 WBC (Bld) 0.200 % 0.0-0.9 [facility] LDHon 02-16-2025 LDH 273 U/L High 87-241 [facility] Comment on above: Performed By: #### L 504.2610, L501.4700 ####[facility] [address] [place], [place], [id number] MCV (mean corpuscular volume ) determinationOrdered By: Jerald Sherwood on 02-16-2025 MCV (RBC) [Entitic vol] 87.3 fL 80-94 [facility] Magnesiumon 02-16-2025 Magnesium [Mass/Vol] 1.3 mg/dL Low 1.5-2.2 [facility] Comment on above: Performed By: #### L 501.2300, L501.5200 ####[facility] [address] [facility] [place], [address] Magnesium measurement (mass/ volume)Ordered By: Jae Ash on 02-16-2025 Magnesium (Unsp spec) [Mass/Vol] 1.3 mg/dL Low 1.5-2.2 [facility] Mean corpuscular hemoglobin (MCH) determinationOrdered By: Jerald Sherwood on 02-16-2025 MCH (RBC) [Entitic mass] 28.9 pg 27.0-32.0 [facility] Monocyte percentageOrdered B y: Jerald Sherwood on 02-16-2025 Monocytes/100 WBC (Bld) 11.7 % High 0-10 [facility] Neutrophil percentageOrdered By: Jerald Sherwood on 02-16-2025 Neutrophils/100 WBC (Bld) 67.1 % 47-70 [facility] No Panel InformationOrdered By: Jerald Sherwood on 02-16-2025 109 U/L High <38 [facility] Phosphoruson 02-16-2025 Phosphate [Mass/Vol] 2.3 mg/dL Low 2.7-4.5 [facility] Comment on above: Performed By: #### L 501.2300, L501.5200 ####[facility] [address] [facility] [address] [place], [place], [id number] Platelet countOrdered By: Paulette Sherwood on 02-16-2025 Platelets (Bld) [#/Vol] 106 10*3/uL Low 150-450 [facility] Potassium measurement (mass/ volume)Ordered By: Jerald Sherwood on 02-16-2025 Potassium (Unsp spec) [Mass/Vol] 3.1 mmol/L Low 3.3-5.1 [facility] Prothrombin Time w/INRon INR Coag (PPP) [Relative time] 1.8 {INR} Normal [facility] Comment on above: Performed By: #### L 300.3900 ####[facility] [address] [place], [place], [address] PT Coag (PPP) [Time] 21.1 s High 11.7-14.9 [facility] Comment on above: Performed By: #### L 300.3900 ####[facility] [address] [place], [address] RBC Auto (Bld) [#/Vol]Ordere d By: Jerald Sherwood on 02-16-2025 RBC (Bld) [#/Vol] 2.84 10*6/uL Low 4.6-6.2 [facility] Serum creatinine measurement (mass/volume)Ordered By: Jerald Sherwood on 02-16-2025 Creatinine [Mass/Vol] 1.30 mg/dL High 0.70-1.20 [facility] Serum globulin measurementOr dered By: Jerald Sherwood on 02-16-2025 Globulin (S) [Mass/Vol] 3.5 g/dL 2.2-4.2 [facility] Serum glucose measurement (m ass/volume)Ordered By: Jerald Sherwood on 02-16-2025 Glucose [Mass/Vol] 250 mg/dL High 70-99 [facility] Serum or plasma alanine thomas otransferase (ALT) measurementOrdered By: Jerald Sherwood on 02-16-2025 ALT [Catalytic activity/Vol] 51 U/L High <47 [facility] Serum or plasma albumin roosevelt urement (mass/volume)Ordered By: Jerlad Sherwood on 02-16-2025 Albumin [Mass/Vol] 2.3 g/dL Low 3.5-5.0 [facility] Serum or plasma albumin/glob ulin mass ratioOrdered By: Jerald Sherwood on 02-16-2025 Albumin/Globulin [Mass ratio] 0.7 {ratio} Low 0.9-2.4 [facility] Serum or plasma alkaline kendrick sphatase measurementOrdered By: Jerald Sherwood on 02-16-2025 ALP [Catalytic activity/Vol] 310 U/L High 40-129 [facility] Serum or plasma calcium roosevelt urement (mass/volume)Ordered By: Jerald Sherwood on 02-16-2025 Calcium [Mass/Vol] 7.8 mg/dL 7.6-11.0 [facility] Serum or plasma urea nitroge n measurement (mass/volume)Ordered By: Jerald Sherwood on 02-16-2025 Urea nitrogen [Mass/Vol] 12 mg/dL 4-19 [facility] Sodium levelOrdered By: Jerald Sherwood on 02-16-2025 Sodium [Moles/Vol] 135 mmol/L 133-145 [facility] Total proteinOrdered By: Candie Sherwood on 02-16-2025 Protein [Mass/Vol] 5.8 g/dL Low 5.9-8.4 [facility] Venous blood ammonia measure mentOrdered By: Jerald Sherwood on 02-16-2025 Ammonia (P) [Moles/Vol] 88.0 umol/L High 16-60 [facility] Comment on above: Performed By: #### L 100.0100, L500.4050, L3000.0375, L503.5510 ####[facility] [id number] [place], [address] White blood cell (WBC) count Ordered By: Jerald Sherwood on 02-16-2025 WBC (Bld) [#/Vol] 8.5 10*3/uL 4.4-11.0 [facility] Abdomen/Pelvis W IV Cont ONL Yon 02-13-2025 Abdomen/Pelvis W IV Cont ONLY Normal [facility] Absolute lymphocyte countOrd ered By: Luis Carlos Anderson on 02-13-2025 Lymphocytes Auto (Unsp spec) [#/Vol] 1.20 10*3/uL 0.83-4.51 [facility] Anion gap in Serum or Plasma Ordered By: Luis Carlos Anderson on 02-13-2025 Anion gap [Moles/Vol] 14 mmol/L 5-15 [facility] [place] Automated lymphocyte count a s percentage of total leukocytesOrdered By: Luis Carlos Anderson on 02-13-2025 Lymphocytes/100 WBC Auto (Unsp spec) 13.9 % Low 19-41 [facility] BUN/creatinine ratioOrdered By: Luis Carlos Anderson on 02-13-2025 Urea nitrogen/Creatinine [Mass ratio] 14.3 mg/mg 10-20 [facility] Basophil percentageOrdered B y: Luis Carlos Anderson on 02-13-2025 Basophils/100 WBC (Bld) 0.3 % 0-1 [facility] Bilirubin, totalOrdered By: Luis Carlos Anderson on 02-13-2025 Bilirubin [Mass/Vol] 6.20 mg/dL High 0.00-1.30 [facility] Blood manual differential co mment interpretation (narrative result)Ordered By: Luis Carlos Anderson on 02-13-2025 Manual differential comment Marco Antonio (Bld) [Interp] SCANNED [facility] CBC W/Diff, Automatedon 02-01 PLT EST MOD DEC Normal ADEQ [facility] Comment on above: Performed By: #### L 100.0100, L500.4050, L501.2450 ####[facility] [address] [place], [address] Platelet mean volume (Bld) [Entitic vol] 10.8 fL Normal 6.2-12.0 [facility] Comment on above: Performed By: #### L 100.0100, L500.4050, L501.2450 ####[facility] [address] [place], [address] Platelets (Bld) [#/Vol] 83 10*3/uL Low 150-450 [facility] Comment on above: Result Comment: NO C LUMPING SEEN Performed By: #### L 100.0100, L500.4050, L501.2450 ####[facility] [address] [place], [address] SMEAR COMMENT SCANNED Normal [facility] Comment on above: Performed By: #### L 100.0100, L500.4050, L501.2450 ####[facility] [address] [place], [address] Carbon dioxide, total [Moles /volume] in Central venous bloodOrdered By: Luis Carlos Anderson on 02-13-2025 CO2 [Moles/Vol] 18.4 mmol/L Low 21.0-32.0 [facility] Chloride assayOrdered By: Yaya Anderson on 02-13-2025 Chloride [Moles/Vol] 102 mmol/L 98-108 [facility] Comprehensive Metabolic Prof ilon 02-13-2025 Albumin [Mass/Vol] 2.2 g/dL Low 3.5-5.0 [facility] Comment on above: Performed By: #### L 100.0100, L500.4050, L501.2450 ####[facility] [address] [place], [address] Albumin/Globulin [Mass ratio] 0.6 {ratio} Low 0.9-2.4 [facility] Comment on above: Performed By: #### L 100.0100, L500.4050, L501.2450 ####[facility] [address] [place], [address] ALK PHOS 335 U/L High 40-129 [facility] Comment on above: Performed By: #### L 100.0100, L500.4050, L501.2450 ####[facility] [address] [place], [address] ALT [Catalytic activity/Vol] 53 U/L High <=46 [facility] Comment on above: Performed By: #### L 100.0100, L500.4050, L501.2450 ####[facility] [address] [place], [address] AST [Catalytic activity/Vol] 120 U/L High <=37 [facility] Comment on above: Performed By: #### L 100.0100, L500.4050, L501.2450 ####[facility] [address] [place], [address] Bilirubin [Mass/Vol] 6.20 mg/dL High 0.00-1.30 [facility] Comment on above: Performed By: #### L 100.0100, L500.4050, L501.2450 ####[facility] [address] [place], [address] BUN/CRE 14.3 RATIO Normal 10-20 [facility] Comment on above: Performed By: #### L 100.0100, L500.4050, L501.2450 ####[facility] [address] [place], [address] Calcium [Mass/Vol] 8.3 mg/dL Normal 7.6-11.0 [facility] Comment on above: Performed By: #### L 100.0100, L500.4050, L501.2450 ####[facility] [address] [place], [address] Chloride [Moles/Vol] 102 mmol/L Normal 98-108 [facility] Comment on above: Performed By: #### L 100.0100, L500.4050, L501.2450 ####[facility] [address] [place], [address] CO2 [Moles/Vol] 18.4 mmol/L Low 21.0-32.0 [facility] Comment on above: Performed By: #### L 100.0100, L500.4050, L501.2450 ####[facility] [address] [place], [address] Creatinine [Mass/Vol] 1.78 mg/dL High 0.70-1.20 [facility] Comment on above: Result Comment: Icte daquan present, Results may be affected. Performed By: #### L 100.0100, L500.4050, L501.2450 ####[facility] [address] [place], [address] ECRCL 53.12 ml/min Normal 50-250 [facility] Comment on above: Performed By: #### L 100.0100, L500.4050, L501.2450 ####[facility] [address] [place], [address] GAP 14 Normal 5-15 [facility] Comment on above: Performed By: #### L 100.0100, L500.4050, L501.2450 ####[facility] [address] [place], [address] GFR/1.73 sq M.predicted among non-blacks MDRD (S/P/Bld) [Vol rate/Area] 44 mL/min/{1.73_m2} Low >60 [facility] Comment on above: Result Comment: mL/m in/1.73m2 CKD-EPI Creatinine Equation (2020) Performed By: #### L 100.0100, L500.4050, L501.2450 ####[facility] [address] [place], [address] Globulin (S) [Mass/Vol] 3.7 g/dL Normal 2.2-4.2 [facility] Comment on above: Performed By: #### L 100.0100, L500.4050, L501.2450 ####[facility] [address] [place], [address] Glucose [Mass/Vol] 169 mg/dL High 70-99 [facility] Comment on above: Performed By: #### L 100.0100, L500.4050, L501.2450 ####[facility] [address] [place], [address] Potassium [Moles/Vol] 3.4 mmol/L Normal 3.3-5.1 [facility] Comment on above: Result Comment: Hemo lysis present, Results??could be affected.?? Performed By: #### L 100.0100, L500.4050, L501.2450 ####[facility] [address] [place], [address] Sodium [Moles/Vol] 135 mmol/L Normal 133-145 [facility] Comment on above: Performed By: #### L 100.0100, L500.4050, L501.2450 ####[facility] [address] [place], [address] T PROT 5.8 g/dL Low 5.9-8.4 [facility] Comment on above: Performed By: #### L 100.0100, L500.4050, L501.2450 ####[facility] [address] [place], [address] Urea nitrogen [Mass/Vol] 25 mg/dL High 4-19 [facility] Comment on above: Performed By: #### L 100.0100, L500.4050, L501.2450 ####[facility] [address] [place], [address] Emergency Department Summary on 02-13-[address] [facility] Eosinophil percentageOrdered By: Luis Carlos Anderson on 02-13-2025 Eosinophils/100 WBC (Bld) 5.1 % High 0-5 [facility] Erythrocyte distribution wid th ratioOrdered By: Luis Carlos Anderson on 02-13-2025 Erythrocyte distribution width (RBC) [Ratio] 17.4 % High 11.6-14.6 [facility] Erythrocyte distribution wid th standard deviationOrdered By: Luis Carlos Anderson on 02-13-2025 Erythrocyte distribution width (RBC) [Ratio] 52.3 fl High 35.1-43.9 [facility] Glomerular filtration rate ( GFR) estimation/1.73 sq m using serum, plasma, or whole bOrdered By: Luis Carlos Anderson on 02-13-2025 GFR/1.73 sq M.predicted among non-blacks MDRD (S/P/Bld) [Vol rate/Area] 44 mL/min/{1.73_m2} Low >60 [facility] Hematocrit Auto (Bld) [Volum e fraction]Ordered By: Luis Carlos Anderson on 02-13-2025 Hematocrit (Bld) [Volume fraction] 24.1 % Low 40-54 [facility] Hemoglobin measurementOrdere d By: Luis Carlos Anderson on 02-13-2025 Hemoglobin (Bld) [Mass/Vol] 8.3 g/dL Low 13.0-16.5 [facility] Immature granulocytes/100 WB C Auto (Bld)Ordered By: Luis Carlos Anderson on 02-13-2025 Immature granulocytes/100 WBC (Bld) 0.500 % 0.0-0.9 [facility] Lipaseon 02-13-2025 Lipase [Catalytic activity/Vol] 60 U/L Normal 13-75 [facility] Comment on above: Result Comment: Siddhartha bhat note:LIPASE revised reference range effective 22.New Lipase methodology. Expected to produce lower valuesthan the previous assay method.NEW Reference Range: 13 - 75 U/L Performed By: #### L 100.0100, L500.4050, L501.2450 ####[facility] [address] [place], [address] MCV (mean corpuscular volume ) determinationOrdered By: Luis Carlos Anderson on 02-13-2025 MCV (RBC) [Entitic vol] 84.9 fL 80-94 [facility] Mean corpuscular hemoglobin (MCH) determinationOrdered By: Luis Carlos Anderson on 02-13-2025 MCH (RBC) [Entitic mass] 29.2 pg 27.0-32.0 [facility] Monocyte percentageOrdered B y: Luis Carlos Anderson on 02-13-2025 Monocytes/100 WBC (Bld) 16.1 % High 0-10 [facility] Neutrophil percentageOrdered By: Luis Carlos Anderson on 02-13-2025 Neutrophils/100 WBC (Bld) 64.1 % 47-70 [facility] No Panel InformationOrdered By: Luis Carlos Anderson on 02-13-2025 120 U/L High <38 [facility] Platelet countOrdered By: Yaya Anderson on 02-13-2025 Platelets (Bld) [#/Vol] 83 10*3/uL Low 150-450 [facility] Platelet estimateOrdered By: Luis Carlos Anderson on 02-13-2025 Platelets LM Ql (Bld) MOD DEC ADEQ [facility] Potassium measurement (mass/ volume)Ordered By: Luis Carlos Anderson on 02-13-2025 Potassium (Unsp spec) [Mass/Vol] 3.4 mmol/L 3.3-5.1 [facility] RBC Auto (Bld) [#/Vol]Ordere d By: Luis Carlos Anderson on 02-13-2025 RBC (Bld) [#/Vol] 2.84 10*6/uL Low 4.6-6.2 [facility] Serum creatinine measurement (mass/volume)Ordered By: Luis Carlos Anderson on 02-13-2025 Creatinine [Mass/Vol] 1.78 mg/dL High 0.70-1.20 [facility] Serum globulin measurementOr dered By: Luis Carlos Anderson on 02-13-2025 Globulin (S) [Mass/Vol] 3.7 g/dL 2.2-4.2 [facility] Serum glucose measurement (m ass/volume)Ordered By: Luis Carlos Anderson on 02-13-2025 Glucose [Mass/Vol] 169 mg/dL High 70-99 [facility] Serum or plasma alanine thomas otransferase (ALT) measurementOrdered By: Luis Carlos Anderson on 02-13-2025 ALT [Catalytic activity/Vol] 53 U/L High <47 [facility] Serum or plasma albumin roosevelt urement (mass/volume)Ordered By: Luis Carlos Anderson on 02-13-2025 Albumin [Mass/Vol] 2.2 g/dL Low 3.5-5.0 [facility] Serum or plasma albumin/glob ulin mass ratioOrdered By: Luis Carlos Anderson on 02-13-2025 Albumin/Globulin [Mass ratio] 0.6 {ratio} Low 0.9-2.4 [facility] Serum or plasma alkaline kendrick sphatase measurementOrdered By: Luis Carlos Anderson on 02-13-2025 ALP [Catalytic activity/Vol] 335 U/L High 40-129 [facility] Serum or plasma calcium roosevelt urement (mass/volume)Ordered By: Luis Carlos Anderson on 02-13-2025 Calcium [Mass/Vol] 8.3 mg/dL 7.6-11.0 [facility] Serum or plasma urea nitroge n measurement (mass/volume)Ordered By: Luis Carlos Anderson on 02-13-2025 Urea nitrogen [Mass/Vol] 25 mg/dL High 4-19 [facility] Sodium levelOrdered By: Yunior Anderson on 02-13-2025 Sodium [Moles/Vol] 135 mmol/L 133-145 [facility] Total proteinOrdered By: Joann Anderson on 02-13-2025 Protein [Mass/Vol] 5.8 g/dL Low 5.9-8.4 [facility] White blood cell (WBC) count Ordered By: Luis Carlos Anderson on 02-13-2025 WBC (Bld) [#/Vol] 8.6 10*3/uL 4.4-11.0 [facility] Operative Reporton Operative Report Normal [facility] Paracentesis with USon 02-11 Paracentesis with US Normal [facility] Emergency Department Summary on 02-08-2025 Emergency [address] Normal [facility] Abdomen/Pelvis W IV Cont ONL Yon 02-07-2025 Abdomen/Pelvis W IV Cont ONLY Normal [facility] Absolute lymphocyte countOrd ered By: ED PROVIDER on 02-07-2025 Lymphocytes Auto (Unsp spec) [#/Vol] 1.39 10*3/uL 0.83-4.51 [facility] Anion gap in Serum or Plasma Ordered By: ED PROVIDER on 02-07-2025 Anion gap [Moles/Vol] 9 mmol/L 5-15 [facility] Automated lymphocyte count a s percentage of total leukocytesOrdered By: ED PROVIDER on 02-07-2025 Lymphocytes/100 WBC Auto (Unsp spec) 12.8 % Low 19-41 [facility] BUN/creatinine ratioOrdered By: ED PROVIDER on 02-07-2025 Urea nitrogen/Creatinine [Mass ratio] 13.9 mg/mg 10-20 [facility] Basophil percentageOrdered B y: ED PROVIDER on 02-07-2025 Basophils/100 WBC (Bld) 0.5 % 0-1 [facility] Bilirubin, totalOrdered By: ED PROVIDER on 02-07-2025 Bilirubin [Mass/Vol] 1.92 mg/dL High 0.00-1.30 [facility] CBC W/Diff, Automatedon Absolute Lymph 1.39 X10 3/uL Normal 0.83-4.51 [facility] Comment on above: Performed By: #### L 100.0100, L501.2450, L500.4050 ####[facility] [address] [place], [address] Absolute Neut 7.9 X10 3/uL High 2.0-7.7 [facility] Comment on above: Performed By: #### L 100.0100, L501.2450, L500.4050 ####[facility] [address] [place], [address] Basophils/100 WBC (Bld) 0.5 % Normal 0-1 [facility] Comment on above: Performed By: #### L 100.0100, L501.2450, L500.4050 ####[facility] [address] [place], [address] Eosinophils/100 WBC (Bld) 5.4 % High 0-5 [facility] Comment on above: Performed By: #### L 100.0100, L501.2450, L500.4050 ####[facility] [address] [place], [address] Erythrocyte distribution width (RBC) [Ratio] 17.9 % High 11.6-14.6 [facility] Comment on above: Performed By: #### L 100.0100, L501.2450, L500.4050 ####[facility] [address] [place], [address] Hematocrit (Bld) [Volume fraction] 28.8 % Low 40-54 [facility] Comment on above: Performed By: #### L 100.0100, L501.2450, L500.4050 ####[facility] [address] [place], [address] Hemoglobin (Bld) [Mass/Vol] 9.2 g/dL Low 13.0-16.5 [facility] Comment on above: Performed By: #### L 100.0100, L501.2450, L500.4050 ####[facility] [address] [place], [address] IG% 0.400 Normal 0.0-0.9 [facility] Comment on above: Result Comment: IG% - Immature Granulocytes (promyelocytes, myelocytes andmetamyelocytes) > 1% indicates that a LEFT SHIFT is Present. Performed By: #### L 100.0100, L501.2450, L500.4050 ####[facility] [address] [place], [address] Lymphocytes/100 WBC (Bld) 12.8 % Low 19-41 [facility] Comment on above: Performed By: #### L 100.0100, L501.2450, L500.4050 ####[facility] [address] [place], [address] MCH (RBC) [Entitic mass] 29.0 pg Normal 27.0-32.0 [facility] Comment on above: Performed By: #### L 100.0100, L501.2450, L500.4050 ####[facility] [address] [place], [address] MCHC (RBC) [Mass/Vol] 31.9 g/dL Low 32-36 [facility] Comment on above: Performed By: #### L 100.0100, L501.2450, L500.4050 ####[facility] [address] [place], [address] MCV (RBC) [Entitic vol] 90.9 fL Normal 80-94 [facility] Comment on above: Performed By: #### L 100.0100, L501.2450, L500.4050 ####[facility] [address] [place], [address] Monocytes/100 WBC (Bld) 8.1 % Normal 0-10 [facility] Comment on above: Performed By: #### L 100.0100, L501.2450, L500.4050 ####[facility] [address] [place], [address] Neutrophils/100 WBC (Bld) 72.8 % High 47-70 [facility] Comment on above: Performed By: #### L 100.0100, L501.2450, L500.4050 ####[facility] [address] [place], [address] Nucleated RBC (Bld) [#/Vol] 0 10*3/uL Normal 0-5 [facility] Comment on above: Performed By: #### L 100.0100, L501.2450, L500.4050 ####[facility] [address] [place], [address] Platelet mean volume (Bld) [Entitic vol] 10.1 fL Normal 6.2-12.0 [facility] Comment on above: Performed By: #### L 100.0100, L501.2450, L500.4050 ####[facility] [address] [place], [address] Platelets (Bld) [#/Vol] 131 10*3/uL Low 150-450 [facility] Comment on above: Performed By: #### L 100.0100, L501.2450, L500.4050 ####[facility] [address] [place], [address] RBC (Bld) [#/Vol] 3.17 10*6/uL Low 4.6-6.2 [facility] Comment on above: Performed By: #### L 100.0100, L501.2450, L500.4050 ####[facility] [address] [place], [address] RDW SD 58.3 fl High 35.1-43.9 [facility] Comment on above: Performed By: #### L 100.0100, L501.2450, L500.4050 ####[facility] [address] [place], [address] WBC (Bld) [#/Vol] 10.8 10*3/uL Normal 4.4-11.0 [facility] Comment on above: Performed By: #### L 100.0100, L501.2450, L500.4050 ####[facility] [address] [place], [address] Carbon dioxide, total [Moles /volume] in Central venous bloodOrdered By: ED PROVIDER on 02-07-2025 CO2 [Moles/Vol] 22.7 mmol/L 21.0-32.0 [facility] Chloride assayOrdered By: ED PROVIDER on 02-07-2025 Chloride [Moles/Vol] 106 mmol/L 98-108 [facility] Comprehensive Metabolic Prof ilon 02-07-2025 Albumin [Mass/Vol] 2.2 g/dL Low 3.5-5.0 [facility] Comment on above: Performed By: #### L 100.0100, L501.2450, L500.4050 ####[facility] [address] [place], [address] Albumin/Globulin [Mass ratio] 0.6 {ratio} Low 0.9-2.4 [facility] Comment on above: Performed By: #### L 100.0100, L501.2450, L500.4050 ####[facility] [address] [place], [address] ALK PHOS 218 U/L High 40-129 [facility] Comment on above: Performed By: #### L 100.0100, L501.2450, L500.4050 ####[facility] [address] [place], [address] ALT [Catalytic activity/Vol] 30 U/L Normal <=46 [facility] Comment on above: Performed By: #### L 100.0100, L501.2450, L500.4050 ####[facility] [address] [place], [address] AST [Catalytic activity/Vol] 55 U/L High <=37 [facility] Comment on above: Performed By: #### L 100.0100, L501.2450, L500.4050 ####[facility] [address] [place], [address] Bilirubin [Mass/Vol] 1.92 mg/dL High 0.00-1.30 [facility] Comment on above: Performed By: #### L 100.0100, L501.2450, L500.4050 ####[facility] [address] [place], [address] BUN/CRE 13.9 RATIO Normal 10-20 [facility] Comment on above: Performed By: #### L 100.0100, L501.2450, L500.4050 ####[facility] [address] [place], [address] Calcium [Mass/Vol] 8.4 mg/dL Normal 7.6-11.0 [facility] Comment on above: Performed By: #### L 100.0100, L501.2450, L500.4050 ####[facility] [address] [place], [address] Chloride [Moles/Vol] 106 mmol/L Normal 98-108 [facility] Comment on above: Performed By: #### L 100.0100, L501.2450, L500.4050 ####[facility] [address] [place], [address] CO2 [Moles/Vol] 22.7 mmol/L Normal 21.0-32.0 [facility] Comment on above: Performed By: #### L 100.0100, L501.2450, L500.4050 ####[facility] [address] [place], [address] Creatinine [Mass/Vol] 1.05 mg/dL Normal 0.70-1.20 [facility] Comment on above: Performed By: #### L 100.0100, L501.2450, L500.4050 ####[facility] [address] [place], [address] GAP 9 Normal 5-15 [facility] Comment on above: Performed By: #### L 100.0100, L501.2450, L500.4050 ####[facility] [address] [place], [address] GFR/1.73 sq M.predicted among non-blacks MDRD (S/P/Bld) [Vol rate/Area] 82 mL/min/{1.73_m2} Normal >60 [facility] Comment on above: Result Comment: mL/m in/1.73m2 CKD-EPI Creatinine Equation (2020) Performed By: #### L 100.0100, L501.2450, L500.4050 ####[facility] [address] [place], [address] Globulin (S) [Mass/Vol] 3.5 g/dL Normal 2.2-4.2 [facility] Comment on above: Performed By: #### L 100.0100, L501.2450, L500.4050 ####[facility] [address] [place], [address] Glucose [Mass/Vol] 142 mg/dL High 70-99 [facility] Comment on above: Performed By: #### L 100.0100, L501.2450, L500.4050 ####[facility] [address] [place], [address] Potassium [Moles/Vol] 3.7 mmol/L Normal 3.3-5.1 [facility] Comment on above: Performed By: #### L 100.0100, L501.2450, L500.4050 ####[facility] [address] [place], [address] Sodium [Moles/Vol] 137 mmol/L Normal 133-145 [facility] Comment on above: Performed By: #### L 100.0100, L501.2450, L500.4050 ####[facility] [address] [place], [address] T PROT 5.8 g/dL Low 5.9-8.4 [facility] Comment on above: Performed By: #### L 100.0100, L501.2450, L500.4050 ####[facility] [address] [place], [address] Urea nitrogen [Mass/Vol] 15 mg/dL Normal 4-19 [facility] Comment on above: Performed By: #### L 100.0100, L501.2450, L500.4050 ####[facility] [address] [place], [address] Eosinophil percentageOrdered By: ED PROVIDER on 02-07-2025 Eosinophils/100 WBC (Bld) 5.4 % High 0-5 [facility] Erythrocyte distribution wid th ratioOrdered By: ED PROVIDER on 02-07-2025 Erythrocyte distribution width (RBC) [Ratio] 17.9 % High 11.6-14.6 [facility] Erythrocyte distribution wid th standard deviationOrdered By: ED PROVIDER on 02-07-2025 Erythrocyte distribution width (RBC) [Ratio] 58.3 fl High 35.1-43.9 [facility] Glomerular filtration rate ( GFR) estimation/1.73 sq m using serum, plasma, or whole bOrdered By: ED PROVIDER on 02-07-2025 GFR/1.73 sq M.predicted among non-blacks MDRD (S/P/Bld) [Vol rate/Area] 82 mL/min/{1.73_m2} >60 [facility] Hematocrit Auto (Bld) [Volum e fraction]Ordered By: ED PROVIDER on 02-07-2025 Hematocrit (Bld) [Volume fraction] 28.8 % Low 40-54 [facility] Hemoglobin measurementOrdere d By: ED PROVIDER on 02-07-2025 Hemoglobin (Bld) [Mass/Vol] 9.2 g/dL Low 13.0-16.5 [facility] Immature granulocytes/100 WB C Auto (Bld)Ordered By: ED PROVIDER on 02-07-2025 Immature granulocytes/100 WBC (Bld) 0.400 % 0.0-0.9 [facility] Lipaseon 02-07-2025 Lipase [Catalytic activity/Vol] 35 U/L Normal 13-75 [facility] Comment on above: Result Comment: Siddhartha bhat note:LIPASE revised reference range effective 22.New Lipase methodology. Expected to produce lower valuesthan the previous assay method.NEW Reference Range: 13 - 75 U/L Performed By: #### L 100.0100, L501.2450, L500.4050 ####[facility] [address] [place], [place], [id number] MCV (mean corpuscular volume ) determinationOrdered By: ED PROVIDER on 02-07-2025 MCV (RBC) [Entitic vol] 90.9 fL 80-94 [facility] Mean corpuscular hemoglobin (MCH) determinationOrdered By: ED PROVIDER on 02-07-2025 MCH (RBC) [Entitic mass] 29.0 pg 27.0-32.0 [facility] Monocyte percentageOrdered B y: ED PROVIDER on 02-07-2025 Monocytes/100 WBC (Bld) 8.1 % 0-10 [facility] Neutrophil percentageOrdered By: ED PROVIDER on 02-07-2025 Neutrophils/100 WBC (Bld) 72.8 % High 47-70 [facility] No Panel InformationOrdered By: ED PROVIDER on 02-07-2025 55 U/L High <38 [facility] Platelet countOrdered By: ED PROVIDER on 02-07-2025 Platelets (Bld) [#/Vol] 131 10*3/uL Low 150-450 [facility] Potassium measurement (mass/ volume)Ordered By: ED PROVIDER on 02-07-2025 Potassium (Unsp spec) [Mass/Vol] 3.7 mmol/L 3.3-5.1 [facility] RBC Auto (Bld) [#/Vol]Ordere d By: ED PROVIDER on 02-07-2025 RBC (Bld) [#/Vol] 3.17 10*6/uL Low 4.6-6.2 [facility] Serum creatinine measurement (mass/volume)Ordered By: ED PROVIDER on 02-07-2025 Creatinine [Mass/Vol] 1.05 mg/dL 0.70-1.20 [facility] [place] Serum globulin measurementOr dered By: ED PROVIDER on 02-07-2025 Globulin (S) [Mass/Vol] 3.5 g/dL 2.2-4.2 [facility] Serum glucose measurement (m ass/volume)Ordered By: ED PROVIDER on 02-07-2025 Glucose [Mass/Vol] 142 mg/dL High 70-99 [facility] Serum or plasma alanine thomas otransferase (ALT) measurementOrdered By: ED PROVIDER on 02-07-2025 ALT [Catalytic activity/Vol] 30 U/L <47 [facility] Serum or plasma albumin roosevelt urement (mass/volume)Ordered By: ED PROVIDER on 02-07-2025 Albumin [Mass/Vol] 2.2 g/dL Low 3.5-5.0 [facility] Serum or plasma albumin/glob ulin mass ratioOrdered By: ED PROVIDER on 02-07-2025 Albumin/Globulin [Mass ratio] 0.6 {ratio} Low 0.9-2.4 [facility] Serum or plasma alkaline kendrick sphatase measurementOrdered By: ED PROVIDER on 02-07-2025 ALP [Catalytic activity/Vol] 218 U/L High 40-129 [facility] Serum or plasma calcium roosevelt urement (mass/volume)Ordered By: ED PROVIDER on 02-07-2025 Calcium [Mass/Vol] 8.4 mg/dL 7.6-11.0 [facility] Serum or plasma urea nitroge n measurement (mass/volume)Ordered By: ED PROVIDER on 02-07-2025 Urea nitrogen [Mass/Vol] 15 mg/dL 4-19 [facility] Sodium levelOrdered By: ED P ENRIQUE on 02-07-2025 Sodium [Moles/Vol] 137 mmol/L 133-145 [facility] Total proteinOrdered By: ED PROVIDER on 02-07-2025 Protein [Mass/Vol] 5.8 g/dL Low 5.9-8.4 [facility] White blood cell (WBC) count Ordered By: ED PROVIDER on 02-07-2025 WBC (Bld) [#/Vol] 10.8 10*3/uL 4.4-11.0 [facility] Culture, Blood (WB)on 2024 CUB Blood cultures x2, f rom two different sites No growth in [address] [facility] Comment on above: Performed By: #### M 200.1000 ####[facility] [address] [place], [place], [id number] Anion gap in Serum or Plasma Ordered By: Yaritza Leo on 01-31-2025 Anion gap [Moles/Vol] 9 mmol/L 5-15 [facility] [place] BUN/creatinine ratioOrdered By: Yaritza Leo on 01-31-2025 Urea nitrogen/Creatinine [Mass ratio] 10.7 mg/mg - [facility] Basic Metabolic Profile (BMP )on 01-31-2025 BUN/CRE 10.7 RATIO Normal 05-23 [facility] Comment on above: Performed By: #### L 500.2500, L100.0500 ####[facility] [address] [place], [address] Calcium [Mass/Vol] 8.5 mg/dL Normal 7.6-11.0 [facility] Comment on above: Performed By: #### L 500.2500, L100.0500 ####[facility] [address] [place], [address] Chloride [Moles/Vol] 102 mmol/L Normal 98-108 [facility] Comment on above: Performed By: #### L 500.2500, L100.0500 ####[facility] [address] [place], [address] CO2 [Moles/Vol] 22.6 mmol/L Normal 21.0-32.0 [facility] Comment on above: Performed By: #### L 500.2500, L100.0500 ####[facility] [address] [place], [address] Creatinine [Mass/Vol] 0.95 mg/dL Normal 0.70-1.20 [facility] [place] Comment on above: Performed By: #### L 500.2500, L100.0500 ####[facility] [address] [place], [address] ECRCL 108.71 ml/min Normal 50-250 [facility] Comment on above: Performed By: #### L 500.2500, L100.0500 ####[facility] [address] [place], [address] GAP 9 Normal 5-15 [facility] Comment on above: Performed By: #### L 500.2500, L100.0500 ####[facility] [address] [place], [address] GFR/1.73 sq M.predicted among non-blacks MDRD (S/P/Bld) [Vol rate/Area] 93 mL/min/{1.73_m2} Normal >60 [facility] Comment on above: Result Comment: mL/m in/1.73m2 CKD-EPI Creatinine Equation (2020) Performed By: #### L 500.2500, L100.0500 ####[facility] [address] [place], [address] Glucose [Mass/Vol] 143 mg/dL High 70-99 [facility] Comment on above: Performed By: #### L 500.2500, L100.0500 ####[facility] [address] [place], [address] Potassium [Moles/Vol] 3.9 mmol/L Normal 3.3-5.1 [facility] [place] Comment on above: Performed By: #### L 500.2500, L100.0500 ####[facility] [address] [place], [address] Sodium [Moles/Vol] 133 mmol/L Normal 133-145 [facility] Comment on above: Performed By: #### L 500.2500, L100.0500 ####[facility] [address] [place], [address] Urea nitrogen [Mass/Vol] 10 mg/dL Normal 4-19 [facility] Comment on above: Performed By: #### L 500.2500, L100.0500 ####[facility] [address] [place], [address] Bedside Glucoseon 01-31-2025 FINGERSTICK GLU 129 mg/dL High 74-106 [facility] Comment on above: Result Comment: BRISA GEMENT OF PATIENT CARE PER NURSING PROTOCOL Performed By: #### L 501.080 ####[facility] [address] [place], [address] FINGERSTICK GLU 179 mg/dL High 74-106 [facility] Comment on above: Result Comment: BRISA GEMENT OF PATIENT CARE PER NURSING PROTOCOL Performed By: #### L 501.080 ####[facility] [address] [place], [address] FINGERSTICK GLU 149 mg/dL High 74-106 [facility] Comment on above: Result Comment: BRISA MOROCHO OF PATIENT CARE PER NURSING PROTOCOL Performed By: #### L 501.080 ####[facility] [address] [place], [address] CBC-Complete Blood Cnt No Di ffon 01-31-2025 Erythrocyte distribution width (RBC) [Ratio] 17.7 % High 11.6-14.6 [facility] Comment on above: Performed By: #### L 500.2500, L100.0500 ####[facility] [address] [place], [address] Hematocrit (Bld) [Volume fraction] 23.8 % Low 40-54 [facility] Comment on above: Performed By: #### L 500.2500, L100.0500 ####[facility] [address] [place], [address] Hemoglobin (Bld) [Mass/Vol] 7.9 g/dL Low 13.0-16.5 [facility] Comment on above: Performed By: #### L 500.2500, L100.0500 ####[facility] [address] [place], [address] MCH (RBC) [Entitic mass] 29.8 pg Normal 27.0-32.0 [facility] Comment on above: Performed By: #### L 500.2500, L100.0500 ####[facility] [address] [place], [address] MCHC (RBC) [Mass/Vol] 33.2 g/dL Normal 32-36 [facility] [place] Comment on above: Performed By: #### L 500.2500, L100.0500 ####[facility] [address] [place], [address] MCV (RBC) [Entitic vol] 89.8 fL Normal 80-94 [facility] Comment on above: Performed By: #### L 500.2500, L100.0500 ####[facility] [address] [place], [address] Platelet mean volume (Bld) [Entitic vol] 10.6 fL Normal 6.2-12.0 [facility] Comment on above: Performed By: #### L 500.2500, L100.0500 ####[facility] [address] [place], [address] Platelets (Bld) [#/Vol] 108 10*3/uL Low 150-450 [facility] Comment on above: Performed By: #### L 500.2500, L100.0500 ####[facility] [address] [place], [address] RBC (Bld) [#/Vol] 2.65 10*6/uL Low 4.6-6.2 [facility] Comment on above: Performed By: #### L 500.2500, L100.0500 ####[facility] [address] [place], [address] RDW SD 56.9 fl High 35.1-43.9 [facility] Comment on above: Performed By: #### L 500.2500, L100.0500 ####[facility] [address] [place], [address] WBC (Bld) [#/Vol] 5.9 10*3/uL Normal 4.4-11.0 [facility] Comment on above: Performed By: #### L 500.2500, L100.0500 ####[facility] [address] [place], [address] Carbon dioxide, total [Moles /volume] in Central venous bloodOrdered By: Yaritza Leo on 01-31-2025 CO2 [Moles/Vol] 22.6 mmol/L 21.0-32.0 [facility] Chloride assayOrdered By: Raad Leo on 01-31-2025 Chloride [Moles/Vol] 102 mmol/L 98-108 [facility] Erythrocyte distribution wid th ratioOrdered By: Yaritza Leo on 01-31-2025 Erythrocyte distribution width (RBC) [Ratio] 17.7 % High 11.6-14.6 [facility] Erythrocyte distribution wid th standard deviationOrdered By: Yaritza Leo on 01-31-2025 Erythrocyte distribution width (RBC) [Ratio] 56.9 fl High 35.1-43.9 [facility] Glomerular filtration rate ( GFR) estimation/1.73 sq m using serum, plasma, or whole bOrdered By: Yaritza Leo on 01-31-2025 GFR/1.73 sq M.predicted among non-blacks MDRD (S/P/Bld) [Vol rate/Area] 93 mL/min/{1.73_m2} >60 [facility] deOrdered By: Yaritza Leo on 01-31-2025 Glucose [Mass/Vol] 129 mg/dL High 74-106 [facility] Hematocrit Auto (Bld) [Volum e fraction]Ordered By: Yaritza Leo on 01-31-2025 Hematocrit (Bld) [Volume fraction] 23.8 % Low 40-54 [facility] Hemoglobin measurementOrdere d By: Yaritza Leo on 01-31-2025 Hemoglobin (Bld) [Mass/Vol] 7.9 g/dL Low 13.0-16.5 [facility] MCV (mean corpuscular volume ) determinationOrdered By: Yaritza Leo on 01-31-2025 MCV (RBC) [Entitic vol] 89.8 fL 80-94 [facility] Mean corpuscular hemoglobin (MCH) determinationOrdered By: Yaritza Leo on 01-31-2025 MCH (RBC) [Entitic mass] 29.8 pg 27.0-32.0 [facility] Platelet countOrdered By: Raad Leo on 01-31-2025 Platelets (Bld) [#/Vol] 108 10*3/uL Low 150-450 [facility] Potassium measurement (mass/ volume)Ordered By: Yaritza Leo on 01-31-2025 Potassium (Unsp spec) [Mass/Vol] 3.9 mmol/L 3.3-5.1 [facility] RBC Auto (Bld) [#/Vol]Ordere d By: Yaritza Leo on 01-31-2025 RBC (Bld) [#/Vol] 2.65 10*6/uL Low 4.6-6.2 [facility] Serum creatinine measurement (mass/volume)Ordered By: Yaritza Leo on 01-31-2025 Creatinine [Mass/Vol] 0.95 mg/dL 0.70-1.20 [facility] [place] Serum glucose measurement (m ass/volume)Ordered By: Yaritza Leo on 01-31-2025 Glucose [Mass/Vol] 143 mg/dL High 70-99 [facility] Serum or plasma calcium roosevelt urement (mass/volume)Ordered By: Yaritza Leo on 01-31-2025 Calcium [Mass/Vol] 8.5 mg/dL 7.6-11.0 [facility] Serum or plasma urea nitroge n measurement (mass/volume)Ordered By: Yaritza Leo on 01-31-2025 Urea nitrogen [Mass/Vol] 10 mg/dL 4-19 [facility] Sodium levelOrdered By: Saritha Leo on 01-31-2025 Sodium [Moles/Vol] 133 mmol/L 133-145 [facility] White blood cell (WBC) count Ordered By: Yaritza Leo on 01-31-2025 WBC (Bld) [#/Vol] 5.9 10*3/uL 4.4-11.0 [facility] Absolute lymphocyte countOrd ered By: Yaritza Leo on 01-30-2025 Lymphocytes Auto (Unsp spec) [#/Vol] 1.08 10*3/uL 0.83-4.51 [facility] Automated lymphocyte count a s percentage of total leukocytesOrdered By: Yaritza Leo on 01-30-2025 Lymphocytes/100 WBC Auto (Unsp spec) 20.0 % 19-41 [facility] Basic Metabolic Profile (BMP )on 01-30-2025 BUN/CRE 10.1 RATIO Normal 10-20 [facility] Comment on above: Performed By: #### L 501.5200, L501.2300, L500.2500, L100.0100 ####[facility] [address] [place], [address] Calcium [Mass/Vol] 8.4 mg/dL Normal 7.6-11.0 [facility] Comment on above: Performed By: #### L 501.5200, L501.2300, L500.2500, L100.0100 ####[facility] [address] [place], [address] Chloride [Moles/Vol] 101 mmol/L Normal 98-108 [facility] Comment on above: Performed By: #### L 501.5200, L501.2300, L500.2500, L100.0100 ####[facility] [address] [place], [address] CO2 [Moles/Vol] 17.3 mmol/L Low 21.0-32.0 [facility] Comment on above: Performed By: #### L 501.5200, L501.2300, L500.2500, L100.0100 ####[facility] [address] [place], [address] Creatinine [Mass/Vol] 0.93 mg/dL Normal 0.70-1.20 [facility] [place] Comment on above: Performed By: #### L 501.5200, L501.2300, L500.2500, L100.0100 ####[facility] [address] [place], [address] ECRCL 111.05 ml/min Normal 50-250 [facility] Comment on above: Performed By: #### L 501.5200, L501.2300, L500.2500, L100.0100 ####[facility] [address] [place], [address] GAP 13 Normal 5-15 [facility] Comment on above: Performed By: #### L 501.5200, L501.2300, L500.2500, L100.0100 ####[facility] [address] [place], [address] GFR/1.73 sq M.predicted among non-blacks MDRD (S/P/Bld) [Vol rate/Area] 95 mL/min/{1.73_m2} Normal >60 [facility] Comment on above: Result Comment: mL/m in/1.73m2 CKD-EPI Creatinine Equation (2020) Performed By: #### L 501.5200, L501.2300, L500.2500, L100.0100 ####[facility] [address] [place], [address] Glucose [Mass/Vol] 139 mg/dL High 70-99 [facility] Comment on above: Performed By: #### L 501.5200, L501.2300, L500.2500, L100.0100 ####[facility] [address] [place], [address] Potassium [Moles/Vol] 3.5 mmol/L Normal 3.3-5.1 [facility] [place] Comment on above: Result Comment: Hemo lysis present, Results??could be affected.?? Performed By: #### L 501.5200, L501.2300, L500.2500, L100.0100 ####[facility] [address] [place], [address] Sodium [Moles/Vol] 131 mmol/L Low 133-145 [facility] Comment on above: Performed By: #### L 501.5200, L501.2300, L500.2500, L100.0100 ####[facility] [address] [place], [address] Urea nitrogen [Mass/Vol] 9 mg/dL Normal 4-19 [facility] Comment on above: Performed By: #### L 501.5200, L501.2300, L500.2500, L100.0100 ####[facility] [address] [place], [address] Basophil percentageOrdered B y: Yaritza Leo on 01-30-2025 Basophils/100 WBC (Bld) 0.7 % Normal 0-1 [facility] Comment on above: Performed By: #### L 501.5200, L501.2300, L500.2500, L100.0100 ####[facility] [address] [place], [address] Bedside Glucoseon 01-30-2025 FINGERSTICK GLU 170 mg/dL High 74-106 [facility] Comment on above: Result Comment: BRISA GEMENT OF PATIENT CARE PER NURSING PROTOCOL Performed By: #### L 501.080 ####[facility] [address] [place], [address] FINGERSTICK GLU 122 mg/dL High 74-106 [facility] Comment on above: Result Comment: BRISA GEMENT OF PATIENT CARE PER NURSING PROTOCOL Performed By: #### L 501.080 ####[facility] [address] [place], [address] FINGERSTICK GLU 119 mg/dL High 74-106 [facility] Comment on above: Result Comment: BRISA GEMENT OF PATIENT CARE PER NURSING PROTOCOL Performed By: #### L 501.080 ####[facility] [address] [place], [address] FINGERSTICK GLU 116 mg/dL High 74-106 [facility] Comment on above: Result Comment: BRISA GEMENT OF PATIENT CARE PER NURSING PROTOCOL Performed By: #### L 501.080 ####[facility] [address] [place], [address] CBC W/Diff, Automatedon 06-2 Absolute Lymph 1.08 X10 3/uL Normal 0.83-4.51 [facility] Comment on above: Performed By: #### L 501.5200, L501.2300, L500.2500, L100.0100 ####[facility] [address] [place], [address] Absolute Neut 2.9 X10 3/uL Normal 2.0-7.7 [facility] Comment on above: Performed By: #### L 501.5200, L501.2300, L500.2500, L100.0100 ####[facility] [address] [place], [address] Erythrocyte distribution width (RBC) [Ratio] 18.1 % High 11.6-14.6 [facility] Comment on above: Performed By: #### L 501.5200, L501.2300, L500.2500, L100.0100 ####[facility] [address] [place], [address] Hematocrit (Bld) [Volume fraction] 24.1 % Low 40-54 [facility] Comment on above: Performed By: #### L 501.5200, L501.2300, L500.2500, L100.0100 ####[facility] [address] [place], [address] Hemoglobin (Bld) [Mass/Vol] 7.7 g/dL Low 13.0-16.5 [facility] Comment on above: Performed By: #### L 501.5200, L501.2300, L500.2500, L100.0100 ####[facility] [address] [place], [address] IG% 0.600 Normal 0.0-0.9 [facility] Comment on above: Result Comment: IG% - Immature Granulocytes (promyelocytes, myelocytes andmetamyelocytes) > 1% indicates that a LEFT SHIFT is Present. Performed By: #### L 501.5200, L501.2300, L500.2500, L100.0100 ####[facility] [address] [place], [address] Lymphocytes/100 WBC (Bld) 20.0 % Normal 19-41 [facility] Comment on above: Performed By: #### L 501.5200, L501.2300, L500.2500, L100.0100 ####[facility] [address] [place], [address] MCH (RBC) [Entitic mass] 29.2 pg Normal 27.0-32.0 [facility] Comment on above: Performed By: #### L 501.5200, L501.2300, L500.2500, L100.0100 ####[facility] [address] [place], [address] MCHC (RBC) [Mass/Vol] 32.0 g/dL Normal 32-36 [facility] [place] Comment on above: Performed By: #### L 501.5200, L501.2300, L500.2500, L100.0100 ####[facility] [address] [place], [address] MCV (RBC) [Entitic vol] 91.3 fL Normal 80-94 [facility] Comment on above: Performed By: #### L 501.5200, L501.2300, L500.2500, L100.0100 ####[facility] [address] [place], [address] Nucleated RBC (Bld) [#/Vol] 0 10*3/uL Normal 0-5 [facility] Comment on above: Performed By: #### L 501.5200, L501.2300, L500.2500, L100.0100 ####[facility] [address] [place], [address] Platelet mean volume (Bld) [Entitic vol] 10.5 fL Normal 6.2-12.0 [facility] Comment on above: Performed By: #### L 501.5200, L501.2300, L500.2500, L100.0100 ####[facility] [address] [place], [address] Platelets (Bld) [#/Vol] 108 10*3/uL Low 150-450 [facility] Comment on above: Performed By: #### L 501.5200, L501.2300, L500.2500, L100.0100 ####[facility] [address] [place], [address] RBC (Bld) [#/Vol] 2.64 10*6/uL Low 4.6-6.2 [facility] Comment on above: Performed By: #### L 501.5200, L501.2300, L500.2500, L100.0100 ####[facility] [address] [place], [address] RDW SD 61.1 fl High 35.1-43.9 [facility] Comment on above: Performed By: #### L 501.5200, L501.2300, L500.2500, L100.0100 ####[facility] [address] [place], [address] WBC (Bld) [#/Vol] 5.4 10*3/uL Normal 4.4-11.0 [facility] Comment on above: Performed By: #### L 501.5200, L501.2300, L500.2500, L100.0100 ####[facility] [address] [place], [address] Eosinophil percentageOrdered By: Yaritza Leo on 01-30-2025 Eosinophils/100 WBC (Bld) 7.0 % High 0-5 [facility] Comment on above: Performed By: #### L 501.5200, L501.2300, L500.2500, L100.0100 ####[facility] [address] [place], [address] Immature granulocytes/100 WB C Auto (Bld)Ordered By: Yaritza Leo on 01-30-2025 Immature granulocytes/100 WBC (Bld) 0.600 % 0.0-0.9 [facility] Magnesiumon 01-30-2025 Magnesium [Mass/Vol] 1.7 mg/dL Normal 1.5-2.2 [facility] Comment on above: Performed By: #### L 501.5200, L501.2300, L500.2500, L100.0100 ####[facility] [address] [place], [address] Magnesium measurement (mass/ volume)Ordered By: Yaritza Leo on 01-30-2025 Magnesium (Unsp spec) [Mass/Vol] 1.7 mg/dL 1.5-2.2 [facility] Monocyte percentageOrdered B y: Yaritza Leo on 01-30-2025 Monocytes/100 WBC (Bld) 18.5 % High 0-10 [facility] Comment on above: Performed By: #### L 501.5200, L501.2300, L500.2500, L100.0100 ####[facility] [address] [place], [address] Neutrophil percentageOrdered By: Yaritza Leo on 01-30-2025 Neutrophils/100 WBC (Bld) 53.2 % Normal 47-70 [facility] Comment on above: Performed By: #### L 501.5200, L501.2300, L500.2500, L100.0100 ####[facility] [address] [place], [address] Phosphoruson 01-30-2025 Phosphate [Mass/Vol] 2.7 mg/dL Normal 2.7-4.5 [facility] Comment on above: Performed By: #### L 501.5200, L501.2300, L500.2500, L100.0100 ####[facility] [address] [place], [address] Urine Cultureon 01-30-[address] [facility] Comment on above: Performed By: #### M 100.2200 ####[facility] [address] [place], [address] Bedside Glucoseon 01-29-2025 FINGERSTICK GLU 174 mg/dL High 74-106 [facility] Comment on above: Result Comment: BRISA GEMENT OF PATIENT CARE PER NURSING PROTOCOL Performed By: #### L 501.080 ####[facility] [address] [place], [address] FINGERSTICK GLU 163 mg/dL High 74-106 [facility] Comment on above: Result Comment: BRISA GEMENT OF PATIENT CARE PER NURSING PROTOCOL Performed By: #### L 501.080 ####[facility] [address] [place], [address] FINGERSTICK GLU 196 mg/dL High 74-106 [facility] Comment on above: Result Comment: BRISA GEMENT OF PATIENT CARE PER NURSING PROTOCOL Performed By: #### L 501.080 ####[facility] [address] [place], [address] FINGERSTICK GLU 237 mg/dL High 74-106 [facility] Comment on above: Result Comment: BRISA GEMENT OF PATIENT CARE PER NURSING PROTOCOL Performed By: #### L 501.080 ####[facility] [address] [place], [address] FINGERSTICK GLU 172 mg/dL High 74-106 [facility] Comment on above: Result Comment: BRISA GEMENT OF PATIENT CARE PER NURSING PROTOCOL Performed By: #### L 501.080 ####[facility] [address] [place], [address] Bilirubin, totalOrdered By: Boone Izquierdo on 01-29-2025 Bilirubin [Mass/Vol] 1.81 mg/dL High 0.00-1.30 [facility] CBC W/Diff, Automatedon 01-03 Absolute Lymph 0.83 X10 3/uL Normal 0.83-4.51 [facility] Comment on above: Performed By: #### L 500.4050, L100.0100 ####[facility] [address] [place], [address] Absolute Neut 3.0 X10 3/uL Normal 2.0-7.7 [facility] Comment on above: Performed By: #### L 500.4050, L100.0100 ####[facility] [address] [place], [address] Basophils/100 WBC (Bld) 0.8 % Normal 0-1 [facility] Comment on above: Performed By: #### L 500.4050, L100.0100 ####[facility] [address] [place], [address] Eosinophils/100 WBC (Bld) 5.3 % High 0-5 [facility] Comment on above: Performed By: #### L 500.4050, L100.0100 ####[facility] [address] [place], [address] Erythrocyte distribution width (RBC) [Ratio] 18.4 % High 11.6-14.6 [facility] Comment on above: Performed By: #### L 500.4050, L100.0100 ####[facility] [address] [place], [address] Hematocrit (Bld) [Volume fraction] 24.8 % Low 40-54 [facility] Comment on above: Performed By: #### L 500.4050, L100.0100 ####[facility] [address] [place], [address] Hemoglobin (Bld) [Mass/Vol] 8.1 g/dL Low 13.0-16.5 [facility] Comment on above: Performed By: #### L 500.4050, L100.0100 ####[facility] [address] [place], [address] IG% 0.800 Normal 0.0-0.9 [facility] Comment on above: Result Comment: IG% - Immature Granulocytes (promyelocytes, myelocytes andmetamyelocytes) > 1% indicates that a LEFT SHIFT is Present. Performed By: #### L 500.4050, L100.0100 ####[facility] [address] [place], [address] Lymphocytes/100 WBC (Bld) 17.1 % Low 19-41 [facility] Comment on above: Performed By: #### L 500.4050, L100.0100 ####[facility] [address] [place], [address] MCH (RBC) [Entitic mass] 29.6 pg Normal 27.0-32.0 [facility] Comment on above: Performed By: #### L 500.4050, L100.0100 ####[facility] [address] [place], [address] MCHC (RBC) [Mass/Vol] 32.7 g/dL Normal 32-36 [facility] [place] Comment on above: Performed By: #### L 500.4050, L100.0100 ####[facility] [address] [place], [address] MCV (RBC) [Entitic vol] 90.5 fL Normal 80-94 [facility] Comment on above: Performed By: #### L 500.4050, L100.0100 ####[facility] [address] [place], [address] Monocytes/100 WBC (Bld) 15.2 % High 0-10 [facility] Comment on above: Performed By: #### L 500.4050, L100.0100 ####[facility] [address] [place], [address] Neutrophils/100 WBC (Bld) 60.8 % Normal 47-70 [facility] Comment on above: Performed By: #### L 500.4050, L100.0100 ####[facility] [address] [place], [address] Nucleated RBC (Bld) [#/Vol] 0 10*3/uL Normal 0-5 [facility] Comment on above: Performed By: #### L 500.4050, L100.0100 ####[facility] [address] [place], [address] Platelet mean volume (Bld) [Entitic vol] 11.6 fL Normal 6.2-12.0 [facility] Comment on above: Performed By: #### L 500.4050, L100.0100 ####[facility] [address] [place], [address] Platelets (Bld) [#/Vol] 120 10*3/uL Low 150-450 [facility] Comment on above: Performed By: #### L 500.4050, L100.0100 ####[facility] [address] [place], [address] RBC (Bld) [#/Vol] 2.74 10*6/uL Low 4.6-6.2 [facility] Comment on above: Performed By: #### L 500.4050, L100.0100 ####[facility] [address] [place], [address] RDW SD 60.7 fl High 35.1-43.9 [facility] Comment on above: Performed By: #### L 500.4050, L100.0100 ####[facility] [address] [place], [address] WBC (Bld) [#/Vol] 4.9 10*3/uL Normal 4.4-11.0 [facility] Comment on above: Performed By: #### L 500.4050, L100.0100 ####[facility] [address] [place], [address] Comprehensive Metabolic Prof gaon 01-29-2025 Albumin [Mass/Vol] 2.3 g/dL Low 3.5-5.0 [facility] Comment on above: Performed By: #### L 500.4050, L100.0100 ####[facility] [address] [place], [address] Albumin/Globulin [Mass ratio] 0.8 {ratio} Low 0.9-2.4 [facility] Comment on above: Performed By: #### L 500.4050, L100.0100 ####[facility] [address] [place], [address] ALK PHOS 180 U/L High 40-129 [facility] Comment on above: Performed By: #### L 500.4050, L100.0100 ####[facility] [address] [place], [address] ALT [Catalytic activity/Vol] 30 U/L Normal <=46 [facility] Comment on above: Performed By: #### L 500.4050, L100.0100 ####[facility] [address] [place], [address] AST [Catalytic activity/Vol] 52 U/L High <=37 [facility] Comment on above: Performed By: #### L 500.4050, L100.0100 ####[facility] [address] [place], [address] Bilirubin [Mass/Vol] 1.81 mg/dL High 0.00-1.30 [facility] Comment on above: Performed By: #### L 500.4050, L100.0100 ####[facility] [address] [place], [address] BUN/CRE 11.6 RATIO Normal 10-20 [facility] Comment on above: Performed By: #### L 500.4050, L100.0100 ####[facility] [address] [place], [address] Calcium [Mass/Vol] 8.8 mg/dL Normal 7.6-11.0 [facility] Comment on above: Performed By: #### L 500.4050, L100.0100 ####[facility] [address] [place], [address] Chloride [Moles/Vol] 100 mmol/L Normal 98-108 [facility] Comment on above: Performed By: #### L 500.4050, L100.0100 ####[facility] [address] [place], [address] CO2 [Moles/Vol] 19.5 mmol/L Low 21.0-32.0 [facility] Comment on above: Performed By: #### L 500.4050, L100.0100 ####[facility] [address] [place], [address] Creatinine [Mass/Vol] 1.09 mg/dL Normal 0.70-1.20 [facility] [place] Comment on above: Performed By: #### L 500.4050, L100.0100 ####[facility] [address] [place], [address] ECRCL 94.75 ml/min Normal 50-250 [facility] Comment on above: Performed By: #### L 500.4050, L100.0100 ####[facility] [address] [place], [address] GAP 14 Normal 5-15 [facility] Comment on above: Performed By: #### L 500.4050, L100.0100 ####[facility] [address] [place], [address] GFR/1.73 sq M.predicted among non-blacks MDRD (S/P/Bld) [Vol rate/Area] 79 mL/min/{1.73_m2} Normal >60 [facility] Comment on above: Result Comment: mL/m in/1.73m2 CKD-EPI Creatinine Equation (2020) Performed By: #### L 500.4050, L100.0100 ####[facility] [address] [place], [address] Globulin (S) [Mass/Vol] 3.1 g/dL Normal 2.2-4.2 [facility] Comment on above: Performed By: #### L 500.4050, L100.0100 ####[facility] [address] [place], [address] Glucose [Mass/Vol] 265 mg/dL High 70-99 [facility] Comment on above: Performed By: #### L 500.4050, L100.0100 ####[facility] [address] [place], [address] Potassium [Moles/Vol] 3.5 mmol/L Normal 3.3-5.1 [facility] [place] Comment on above: Performed By: #### L 500.4050, L100.0100 ####[facility] [address] [place], [address] Sodium [Moles/Vol] 133 mmol/L Normal 133-145 [facility] Comment on above: Performed By: #### L 500.4050, L100.0100 ####[facility] [address] [place], [address] T PROT 5.4 g/dL Low 5.9-8.4 [facility] Comment on above: Performed By: #### L 500.4050, L100.0100 ####[facility] [address] [place], [place], [address] Urea nitrogen [Mass/Vol] 13 mg/dL Normal 4-19 [facility] Comment on above: Performed By: #### L 500.4050, L100.0100 ####[facility] [address] [place], [place], [id number] No Panel InformationOrdered By: Boone Izquierdo on 01-29-2025 52 U/L High <38 [facility] Serum globulin measurementOr dered By: Boone Izquierdo on 01-29-2025 Globulin (S) [Mass/Vol] 3.1 g/dL 2.2-4.2 [facility] Serum or plasma alanine thomas otransferase (ALT) measurementOrdered By: Boone Izquierdo on 01-29-2025 ALT [Catalytic activity/Vol] 30 U/L <47 [facility] Serum or plasma albumin roosevelt urement (mass/volume)Ordered By: Boone Izquierdo on 01-29-2025 Albumin [Mass/Vol] 2.3 g/dL Low 3.5-5.0 [facility] Serum or plasma albumin/glob ulin mass ratioOrdered By: Boone Izquierdo on 01-29-2025 Albumin/Globulin [Mass ratio] 0.8 {ratio} Low 0.9-2.4 [facility] Serum or plasma alkaline kendrick sphatase measurementOrdered By: Boone Izquierdo on 01-29-2025 ALP [Catalytic activity/Vol] 180 U/L High 40-129 [facility] Total proteinOrdered By: Danita Izquierdo on 01-29-2025 Protein [Mass/Vol] 5.4 g/dL Low 5.9-8.4 [facility] Abdomen/Pelvis W IV Cont ONL Yon 01-28-2025 Abdomen/Pelvis W IV Cont ONLY Normal [facility] Absolute lymphocyte countOrd ered By: Danny Hutton on 01-28-2025 Lymphocytes Auto (Unsp spec) [#/Vol] 0.98 10*3/uL 0.83-4.51 [facility] Activated partial thrombopla stin time (aPTT) in platelet poor plasma by coagulation aOrdered By: Danny Hutton on 01-28-2025 aPTT Coag (PPP) [Time] 38.4 s High 24.1-36.2 [facility] Ammoniaon 01-28-2025 Ammonia (P) [Moles/Vol] 108.0 umol/L High 16-60 [facility] Comment on above: Order Comment: ROSIO W. PREVIOUS SPECIMEN REJECTED DUE TOHEMOLYSIS. 01/28/25 [address] Performed By: #### L 503.5510 ####[facility] [address] [place], [place], [id number] Anion gap in Serum or Plasma Ordered By: Danny Hutton on 01-28-2025 Anion gap [Moles/Vol] 14 mmol/L - [facility] Automated lymphocyte count a s percentage of total leukocytesOrdered By: Danny Hutton on 01-28-2025 Lymphocytes/100 WBC Auto (Unsp spec) 18.8 % Low 19-41 [facility] BUN/creatinine ratioOrdered By: Danny Hutton on 01-28-2025 Urea nitrogen/Creatinine [Mass ratio] 12.8 mg/mg 10-20 [facility] Basic Metabolic Profile (BMP )on 01-28-2025 CO2 [Moles/Vol] 22.1 mmol/L Normal 21.0-32.0 [facility] Comment on above: Performed By: #### L 500.3400, L300.3900, L500.2500, L501.2450, L503.6005, L501.5200, L300.4310, L501.4021, L100.0100, L503.7505 ####[facility] [address] [place], [place], [phone] GAP 14 Normal 5-15 [facility] Comment on above: Performed By: #### L 500.3400, L300.3900, L500.2500, L501.2450, L503.6005, L501.5200, L300.4310, L501.4021, L100.0100, L503.7505 ####[facility] [address] [place], [address] Basophil percentageOrdered B y: Danny Hutton on 01-28-2025 Basophils/100 WBC (Bld) 0.8 % 0-1 [facility] Bedside Glucoseon 01-28-2025 FINGERSTICK GLU 102 mg/dL Normal 74-106 [facility] Comment on above: Result Comment: BRISA GEMENT OF PATIENT CARE PER NURSING PROTOCOL Performed By: #### L 501.080 ####[facility] [address] [place], [address] FINGERSTICK GLU 96 mg/dL Normal 74-106 [facility] Comment on above: Result Comment: BRISA GEMENT OF PATIENT CARE PER NURSING PROTOCOL Performed By: #### L 501.080 ####[facility] [address] [place], [place], [address] Bilirubin Test strip Ql (U)O rdered By: Danny Hutton on 01-28-2025 Bilirubin Ql (U) Negative Negative [facility] Bilirubin directOrdered By: Danny Hutton on 01-28-2025 Bilirubin.direct [Mass/Vol] 1.04 mg/dL High 0.00-0.30 [facility] Bilirubin, totalOrdered By: Danny Hutton on 01-28-2025 Bilirubin [Mass/Vol] 1.91 mg/dL High 0.00-1.30 [facility] Blood cultureOrdered By: Silvano Hutton on 01-28-2025 Bacteria identified Cx Nom (Bld) No growth in [address] [facility] Bacteria identified Cx Nom (Bld) No growth in [address] [facility] CBC W/Diff, Automatedon 06-2 -2024 Absolute Lymph 0.98 X10 3/uL Normal 0.83-4.51 [facility] Comment on above: Performed By: #### L 500.3400, L300.3900, L500.2500, L501.2450, L503.6005, L501.5200, L300.4310, L501.4021, L100.0100, L503.7505 ####[facility] [address] [place], [place], [phone]) Absolute Neut 3.0 X10 3/uL Normal 2.0-7.7 [facility] Comment on above: Performed By: #### L 500.3400, L300.3900, L500.2500, L501.2450, L503.6005, L501.5200, L300.4310, L501.4021, L100.0100, L503.7505 ####[facility] [address] [place], [place], [phone]) Basophils/100 WBC (Bld) 0.8 % Normal 0-1 [facility] Comment on above: Performed By: #### L 500.3400, L300.3900, L500.2500, L501.2450, L503.6005, L501.5200, L300.4310, L501.4021, L100.0100, L503.7505 ####[facility] [address] [place], [place], [phone]) Eosinophils/100 WBC (Bld) 4.6 % Normal 0-5 [facility] Comment on above: Performed By: #### L 500.3400, L300.3900, L500.2500, L501.2450, L503.6005, L501.5200, L300.4310, L501.4021, L100.0100, L503.7505 ####[facility] [address] [place], [address] Erythrocyte distribution width (RBC) [Ratio] 18.4 % High 11.6-14.6 [facility] Comment on above: Performed By: #### L 500.3400, L300.3900, L500.2500, L501.2450, L503.6005, L501.5200, L300.4310, L501.4021, L100.0100, L503.7505 ####[facility] [address] [facility], [address] Hematocrit (Bld) [Volume fraction] 25.2 % Low 40-54 [facility] Comment on above: Performed By: #### L 500.3400, L300.3900, L500.2500, L501.2450, L503.6005, L501.5200, L300.4310, L501.4021, L100.0100, L503.7505 ####[facility] [address] [facility], [address] Hemoglobin (Bld) [Mass/Vol] 8.3 g/dL Low 13.0-16.5 [facility] Comment on above: Performed By: #### L 500.3400, L300.3900, L500.2500, L501.2450, L503.6005, L501.5200, L300.4310, L501.4021, L100.0100, L503.7505 ####[facility] [address] [facility], [address] IG% 1.300 High 0.0-0.9 [facility] Comment on above: Result Comment: IG% - Immature Granulocytes (promyelocytes, myelocytes andmetamyelocytes) > 1% indicates that a LEFT SHIFT is Present. Performed By: #### L 500.3400, L300.3900, L500.2500, L501.2450, L503.6005, L501.5200, L300.4310, L501.4021, L100.0100, L503.7505 ####[facility] [address] [place], [address] Lymphocytes/100 WBC (Bld) 18.8 % Low 19-41 [facility] Comment on above: Performed By: #### L 500.3400, L300.3900, L500.2500, L501.2450, L503.6005, L501.5200, L300.4310, L501.4021, L100.0100, L503.7505 ####[facility] [address] [place], [address] MCH (RBC) [Entitic mass] 29.4 pg Normal 27.0-32.0 [facility] Comment on above: Performed By: #### L 500.3400, L300.3900, L500.2500, L501.2450, L503.6005, L501.5200, L300.4310, L501.4021, L100.0100, L503.7505 ####[facility] [address] [place], [address] MCHC (RBC) [Mass/Vol] 32.9 g/dL Normal 32-36 [facility] [place] Comment on above: Performed By: #### L 500.3400, L300.3900, L500.2500, L501.2450, L503.6005, L501.5200, L300.4310, L501.4021, L100.0100, L503.7505 ####[facility] [address] [place], [address] MCV (RBC) [Entitic vol] 89.4 fL Normal 80-94 [facility] Comment on above: Performed By: #### L 500.3400, L300.3900, L500.2500, L501.2450, L503.6005, L501.5200, L300.4310, L501.4021, L100.0100, L503.7505 ####[facility] [address] [place], [address] Monocytes/100 WBC (Bld) 16.7 % High 0-10 [facility] Comment on above: Performed By: #### L 500.3400, L300.3900, L500.2500, L501.2450, L503.6005, L501.5200, L300.4310, L501.4021, L100.0100, L503.7505 ####[facility] [address] [place], [place], [phone] Neutrophils/100 WBC (Bld) 57.8 % Normal 47-70 [facility] Comment on above: Performed By: #### L 500.3400, L300.3900, L500.2500, L501.2450, L503.6005, L501.5200, L300.4310, L501.4021, L100.0100, L503.7505 ####[facility] [address] [facility] [place], [place], [phone](547) Nucleated RBC (Bld) [#/Vol] 0 10*3/uL Normal 0-5 [facility] Comment on above: Performed By: #### L 500.3400, L300.3900, L500.2500, L501.2450, L503.6005, L501.5200, L300.4310, L501.4021, L100.0100, L503.7505 ####[facility] [address] [facility] [place] [place], [phone](404) Platelet mean volume (Bld) [Entitic vol] 11.5 fL Normal 6.2-12.0 [facility] Comment on above: Performed By: #### L 500.3400, L300.3900, L500.2500, L501.2450, L503.6005, L501.5200, L300.4310, L501.4021, L100.0100, L503.7505 ####[facility] [address] [facility] [place], [phone] Platelets (Bld) [#/Vol] 115 10*3/uL Low 150-450 [facility] Comment on above: Performed By: #### L 500.3400, L300.3900, L500.2500, L501.2450, L503.6005, L501.5200, L300.4310, L501.4021, L100.0100, L503.7505 ####[facility] [address] [place], [address] RBC (Bld) [#/Vol] 2.82 10*6/uL Low 4.6-6.2 [facility] Comment on above: Performed By: #### L 500.3400, L300.3900, L500.2500, L501.2450, L503.6005, L501.5200, L300.4310, L501.4021, L100.0100, L503.7505 ####[facility] [address] [place], [address] RDW SD 60.7 fl High 35.1-43.9 [facility] Comment on above: Performed By: #### L 500.3400, L300.3900, L500.2500, L501.2450, L503.6005, L501.5200, L300.4310, L501.4021, L100.0100, L503.7505 ####[facility] [address] [place], [address] WBC (Bld) [#/Vol] 5.2 10*3/uL Normal 4.4-11.0 [facility] Comment on above: Performed By: #### L 500.3400, L300.3900, L500.2500, L501.2450, L503.6005, L501.5200, L300.4310, L501.4021, L100.0100, L503.7505 ####[facility] [address] [place], [address] Carbon dioxide, total [Moles /volume] in Central venous bloodOrdered By: Danny Hutton on 01-28-2025 CO2 [Moles/Vol] 22.1 mmol/L 21.0-32.0 [facility] Chest PA and Lateralon 01-28 Chest PA and Lateral Normal [facility] Chloride assayOrdered By: Darin Hutton on 01-28-2025 Chloride [Moles/Vol] 95 mmol/L Low 98-108 [facility] Emergency Department Summary on 01-28-2025 [address] Normal [facility] Eosinophil percentageOrdered By: Danny Hutton on 01-28-2025 Eosinophils/100 WBC (Bld) 4.6 % 0-5 [facility] Erythrocyte distribution wid th ratioOrdered By: Danny Hutton on 01-28-2025 Erythrocyte distribution width (RBC) [Ratio] 18.4 % High 11.6-14.6 [facility] Erythrocyte distribution wid th standard deviationOrdered By: Danny Barker on 01-28-2025 Erythrocyte distribution width (RBC) [Ratio] 60.7 fl High 35.1-43.9 [facility] Glomerular filtration rate ( GFR) estimation/1.73 sq m using serum, plasma, or whole bOrdered By: Danny Hutton on 01-28-2025 GFR/1.73 sq M.predicted among non-blacks MDRD (S/P/Bld) [Vol rate/Area] 73 mL/min/{1.73_m2} >60 [facility] H AND P Exam - Hospitaliston 01-28-2025 H&P Exam - Hospitalist Normal [facility] Hematocrit Auto (Bld) [Volum e fraction]Ordered By: Danny Hutton on 01-28-2025 Hematocrit (Bld) [Volume fraction] 25.2 % Low 40-54 [facility] Hemoglobin measurementOrdere d By: Danny Hutton on 01-28-2025 Hemoglobin (Bld) [Mass/Vol] 8.3 g/dL Low 13.0-16.5 [facility] Immature granulocytes/100 WB C Auto (Bld)Ordered By: Danny Hutton on 01-28-2025 Immature granulocytes/100 WBC (Bld) 1.300 % High 0.0-0.9 [facility] Influenza virus A and B and SARS-CoV-2 (COVID-19) and Respiratory syncytial virus RNAOrdered By: Danny Hutton on 01-28-2025 SARS-CoV-2 (COVID-19) RNA ANANTH+probe Ql (Unsp spec) [facility] Ketones Test strip Ql (U)Ord ered By: Danny sunnyLucero on 01-28-2025 Ketones Ql (U) Negative Negative [facility] L499.0042on 01-28-2025 Trop T High Sen Normal <=22 [facility] Comment on above: Result Comment: Canc elled via OM: Ordered Performed By: #### L 499.0042 ####[facility] [address] [facility], [address] L501.4021on 01-28-2025 Trop T High Sen 13 ng/L Normal <=22 [facility] Comment on above: Performed By: #### L 500.3400, L300.3900, L500.2500, L501.2450, L503.6005, L501.5200, L300.4310, L501.4021, L100.0100, L503.7505 ####[facility] [address] [facility], [address] L503.7505on 01-28-2025 Natriuretic peptide B (Bld) [Mass/Vol] 140 pg/mL Normal <=900 [facility] Comment on above: Result Comment: Hear t Failure Unlikely: < 300 pg/mLHeart Failure Likely< 50 Years: > 450 pg/mL50-75 Years: > 900 pg/mL>75 Years: > 1800 pg/mL Performed By: #### L 500.3400, L300.3900, L500.2500, L501.2450, L503.6005, L501.5200, L300.4310, L501.4021, L100.0100, L503.7505 ####[facility] [address] [place], [place], [id number] Lactic Acidon 01-28-2025 Lactate [Moles/Vol] 2.8 mmol/L Invalid Interpretation Code 0.0-2.0 [facility] Comment on above: Result Comment: Crit ical Result(s) Called at: 01/28/2025-09:07 by: Jennfier to Len Marsh.??Results read back by same. Performed By: #### L 503.7210 ####[facility] [address] [place], [address] Lactate [Moles/Vol] 3.4 mmol/L Invalid Interpretation Code 0.0-2.0 [facility] Comment on above: Order Comment: Y Result Comment: Crit ical Result(s) Called at: 01/28/2025-04:24 by: Jennifer to Arianna Alva.??Results read back by same. Performed By: #### L 500.3400, L300.3900, L500.2500, L501.2450, L503.6005, L501.5200, L300.4310, L501.4021, L100.0100, L503.7505 ####[facility] [address] [place], [place], [id number] Lipaseon 01-28-2025 Lipase [Catalytic activity/Vol] 33 U/L Normal 13-75 [facility] Comment on above: Result Comment: Plea se note:LIPASE revised reference range effective 22.New Lipase methodology. Expected to produce lower valuesthan the previous assay method.NEW Reference Range: 13 - 75 U/L Performed By: #### L 500.3400, L300.3900, L500.2500, L501.2450, L503.6005, L501.5200, L300.4310, L501.4021, L100.0100, L503.7505 ####[facility] [address] [place], [address] Liver Profileon 01-28-2025 Albumin [Mass/Vol] 2.5 g/dL Low 3.5-5.0 [facility] Comment on above: Performed By: #### L 500.3400, L300.3900, L500.2500, L501.2450, L503.6005, L501.5200, L300.4310, L501.4021, L100.0100, L503.7505 ####[facility] [address] [place], [place], [phone] ALK PHOS 201 U/L High 40-129 [facility] Comment on above: Performed By: #### L 500.3400, L300.3900, L500.2500, L501.2450, L503.6005, L501.5200, L300.4310, L501.4021, L100.0100, L503.7505 ####[facility] [address] [place], [place], [id number] ALT [Catalytic activity/Vol] 31 U/L Normal <=46 [facility] Comment on above: Performed By: #### L 500.3400, L300.3900, L500.2500, L501.2450, L503.6005, L501.5200, L300.4310, L501.4021, L100.0100, L503.7505 ####[facility] [address] [place], [address] AST [Catalytic activity/Vol] 58 U/L High <=37 [facility] Comment on above: Performed By: #### L 500.3400, L300.3900, L500.2500, L501.2450, L503.6005, L501.5200, L300.4310, L501.4021, L100.0100, L503.7505 ####[facility] [address] [place], [address] Bilirubin [Mass/Vol] 1.91 mg/dL High 0.00-1.30 [facility] Comment on above: Performed By: #### L 500.3400, L300.3900, L500.2500, L501.2450, L503.6005, L501.5200, L300.4310, L501.4021, L100.0100, L503.7505 ####[facility] [address] [place], [address] Bilirubin.direct [Mass/Vol] 1.04 mg/dL High 0.00-0.30 [facility] Comment on above: Performed By: #### L 500.3400, L300.3900, L500.2500, L501.2450, L503.6005, L501.5200, L300.4310, L501.4021, L100.0100, L503.7505 ####[facility] [address] [place], [place], [phone] Globulin (S) [Mass/Vol] 3.3 g/dL Normal 2.2-4.2 [facility] Comment on above: Performed By: #### L 500.3400, L300.3900, L500.2500, L501.2450, L503.6005, L501.5200, L300.4310, L501.4021, L100.0100, L503.7505 ####[facility] [address] [place], [address] T PROT 5.9 g/dL Normal 5.9-8.4 [facility] Comment on above: Performed By: #### L 500.3400, L300.3900, L500.2500, L501.2450, L503.6005, L501.5200, L300.4310, L501.4021, L100.0100, L503.7505 ####[facility] [address] [place], [place], [address] M100.678on 01-28-2025 M100.678 SARS-CoV-2 (COVID 19 ) Negative INFLUENZA A Negative INFLUENZA B Negative RSV PCR Negative Normal [facility] Comment on above: Performed By: #### M 100.678 ####[facility] [address] [place], [place], [phone] MCV (mean corpuscular volume ) determinationOrdered By: Danny Hutton on 01-28-2025 MCV (RBC) [Entitic vol] 89.4 fL 80-94 [facility] Magnesiumon 01-28-2025 Magnesium [Mass/Vol] 1.7 mg/dL Normal 1.5-2.2 [facility] Comment on above: Performed By: #### L 500.3400, L300.3900, L500.2500, L501.2450, L503.6005, L501.5200, L300.4310, L501.4021, L100.0100, L503.7505 ####[facility] [address] [facility] [address] [place], [place], [id number] Magnesium measurement (mass/ volume)Ordered By: Danny Hutton on 01-28-2025 Magnesium (Unsp spec) [Mass/Vol] 1.7 mg/dL 1.5-2.2 [facility] Mean corpuscular hemoglobin (MCH) determinationOrdered By: Danny Hutton on 01-28-2025 MCH (RBC) [Entitic mass] 29.4 pg 27.0-32.0 [facility] Monocyte percentageOrdered B y: Danny Hutton on 01-28-2025 Monocytes/100 WBC (Bld) 16.7 % High 0-10 [facility] Mucus LM Ql (Urine sed)Order ed By: Danny Hutton on 01-28-2025 Mucus Ql (Urine sed) 0 SEEN /hpf [facility] [place] Natriuretic peptide.B prohor prachi N-Terminal [Mass/volume] in Serum or PlasmaOrdered By: Danny Hutton on 01-28-2025 Natriuretic peptide.B prohormone N-Terminal [Mass/Vol] 140 pg/mL <900 [facility] Neutrophil percentageOrdered By: Danny Hutton on 01-28-2025 Neutrophils/100 WBC (Bld) 57.8 % 47-70 [facility] Nitrite Test strip Ql (U)Ord ered By: Danny Hutton on 01-28-2025 Nitrite Ql (U) Negative Negative [facility] No Panel InformationOrdered By: Danny Hutton on 01-28-2025 58 U/L High <38 [facility] Partial Thromboplast Timeon 01-28-2025 aPTT Coag (Bld) [Time] 38.4 s High 24.1-36.2 [facility] Comment on above: Performed By: #### L 500.3400, L300.3900, L500.2500, L501.2450, L503.6005, L501.5200, L300.4310, L501.4021, L100.0100, L503.7505 ####[facility] [address] [place], [place], [id number] Platelet countOrdered By: Darin Hutton on 01-28-2025 Platelets (Bld) [#/Vol] 115 10*3/uL Low 150-450 [facility] Potassium measurement (mass/ volume)Ordered By: Danny Hutton on 01-28-2025 Potassium (Unsp spec) [Mass/Vol] 3.4 mmol/L 3.3-5.1 [facility] Protein Test strip Ql (U)Ord ered By: Danny Hutton on 01-28-2025 Protein Ql (U) 100 mg/dl High Negative [facility] Prothrombin Time w/INRon INR Coag (PPP) [Relative time] 1.7 {INR} Normal [facility] Comment on above: Performed By: #### L 500.3400, L300.3900, L500.2500, L501.2450, L503.6005, L501.5200, L300.4310, L501.4021, L100.0100, L503.7505 ####[facility] [address] [facility], [address] PT Coag (PPP) [Time] 20.0 s High 11.7-14.9 [facility] Comment on above: Performed By: #### L 500.3400, L300.3900, L500.2500, L501.2450, L503.6005, L501.5200, L300.4310, L501.4021, L100.0100, L503.7505 ####[facility] [address] [facility] [place], [place], [id number] Prothrombin timeOrdered By: Danny Hutton on 01-28-2025 PT Coag (PPP) [Time] 20.0 s High 11.7-14.9 [facility] RBC Auto (Bld) [#/Vol]Ordere d By: Danny Hutton on 01-28-2025 RBC (Bld) [#/Vol] 2.82 10*6/uL Low 4.6-6.2 [facility] Serum creatinine measurement (mass/volume)Ordered By: Danny Hutton on 01-28-2025 Creatinine [Mass/Vol] 1.16 mg/dL 0.70-1.20 [facility] [place] Serum globulin measurementOr dered By: Danny Hutton on 01-28-2025 Globulin (S) [Mass/Vol] 3.3 g/dL 2.2-4.2 [facility] Serum glucose measurement (m ass/volume)Ordered By: Danny Hutton on 01-28-2025 Glucose [Mass/Vol] 93 mg/dL 70-99 [facility] Serum or plasma alanine thomas otransferase (ALT) measurementOrdered By: Danny Hutton on 01-28-2025 ALT [Catalytic activity/Vol] 31 U/L <47 [facility] Serum or plasma albumin roosevelt urement (mass/volume)Ordered By: Danny Barker on 01-28-2025 Albumin [Mass/Vol] 2.5 g/dL Low 3.5-5.0 [facility] Serum or plasma alkaline kendrick sphatase measurementOrdered By: Danny Hutton on 01-28-2025 ALP [Catalytic activity/Vol] 201 U/L High 40-129 [facility] Serum or plasma calcium roosevelt urement (mass/volume)Ordered By: Danny Barker on 01-28-2025 Calcium [Mass/Vol] 8.9 mg/dL 7.6-11.0 [facility] Serum or plasma urea nitroge n measurement (mass/volume)Ordered By: Danny Hutton on 01-28-2025 Urea nitrogen [Mass/Vol] 15 mg/dL 4-19 [facility] Sodium levelOrdered By: Srinath Hutton on 01-28-2025 Sodium [Moles/Vol] 131 mmol/L Low 133-145 [facility] Squamous epithelial cells de tection in urine sediment by light microscopyOrdered By: Danny Hutton on 01-28-2025 Epithelial cells.squamous LM Ql (Urine sed) 0 SEEN /hpf 0-5 [facility] Total proteinOrdered By: Silvano Hutton on 01-28-2025 Protein [Mass/Vol] 5.9 g/dL 5.9-8.4 [facility] Troponin T.cardiac [Mass/vol ume] in Serum or Plasma by High sensitivity methodOrdered By: Danny Hutton on 01-28-2025 Troponin T.cardiac High sensitivity method [Mass/Vol] 13 ng/L <22 [facility] Urinalysis, Completeon 01-28 BACTERIA 1+ /hpf Normal None Seen [facility] Comment on above: Order Comment: COLOR OF URINE MAY AFFECT DIPSTICK RESULTS.SENIOR SOFTWARE ENGINEER ANALYTICS TO SPECIFY Performed By: #### L 400.0001 ####[facility] [address] [place], [address] RBC > 100 SEEN Normal 0-5 [facility] Comment on above: Order Comment: COLOR OF URINE MAY AFFECT DIPSTICK RESULTS.SENIOR SOFTWARE ENGINEER ANALYTICS TO SPECIFY Performed By: #### L 400.0001 ####[facility] [address] [place], [address] WBC 10-25 SEEN Normal 0-5 [facility] Comment on above: Order Comment: COLOR OF URINE MAY AFFECT DIPSTICK RESULTS.SENIOR SOFTWARE ENGINEER ANALYTICS TO SPECIFY Performed By: #### L 400.0001 ####[facility] [address] [place], [address] EPI,SQUAMOUS 0 SEEN Normal 0-[address] [place] [address] Comment on above: Order Comment: COLOR OF URINE MAY AFFECT DIPSTICK RESULTS.SENIOR SOFTWARE ENGINEER ANALYTICS TO SPECIFY Performed By: #### L 400.0001 ####[facility] [address] [place], [address] Mucus Ql (Urine sed) 0 SEEN Normal [facility] Comment on above: Order Comment: COLOR OF URINE MAY AFFECT DIPSTICK RESULTS.SENIOR SOFTWARE ENGINEER ANALYTICS TO SPECIFY Performed By: #### L 400.0001 ####[facility] [address] [place], [address] Urine clarityOrdered By: Silvnao Hutton on 01-28-2025 Clarity (U) Cloudy Clear [facility] Urine color determinationOrd ered By: Danny Hutton on 01-28-2025 Color (U) Lexis Yellow [facility] Urine cultureOrdered By: Silvano Hutton on 01-28-2025 Bacteria identified Cx Nom (U) Vancomycin Resist. E. faecalis Abnormal 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 Urine glucose detectionOrder ed By: Danny Hutton on 01-28-2025 Glucose Ql (U) Normal mg/dl Normal [facility] Urine leukocyte esterase det ection by dipstickOrdered By: Danny Hutton on 01-28-2025 Leukocyte esterase Test strip Ql (U) 500 /ul High Negative [facility] Urine pHOrdered By: Danny Santiago on 01-28-2025 pH (U) 8.0 [pH] 5.0 - 8.0 [facility] Urine sediment bacteria coun t by microscopy (number/high power field)Ordered By: Danny Hutton on 01-28-2025 Bacteria LM.HPF (Urine sed) [#/Area] 1 /[HPF] None Seen [facility] Urine specific gravity measu rementOrdered By: Dannyjersey Hutton on 01-28-2025 Specific gravity (U) [Rel density] 1.015 1.002-1.030 [facility] Urine urobilinogen measureme ntOrdered By: Danny Hutton on 01-28-2025 Urobilinogen Ql (U) Normal mg/dl Normal [facility] Venous blood ammonia measure mentOrdered By: Danny Hutton on 01-28-2025 Ammonia (P) [Moles/Vol] 108.0 umol/L High 16-60 [facility] White blood cell (WBC) count Ordered By: Danny Hutton on 01-28-2025 WBC (Bld) [#/Vol] 5.2 10*3/uL 4.4-11.0 [facility] White blood cell countOrdere d By: Danny Hutton on 01-28-2025 White blood cell count 10-25 SEEN /hpf 0-5 [facility] Body Fluid Cell Count+Diffon 01-25-[address] [facility] Comment on above: Order Comment: The r eference range and other method performancespecifications have not been established for this bodyfluid. The test must be integrated into the clinicalcontext for interpretation. Result Comment: AMENDED REPORT 01/25/25 1125 OTHER CELL/BF previously reported as: 7 % Performed By: #### L 200.0200, L350.1000, M100.2900, M100.4001, M100.1999 ####[facility] [address] [place], [address] Culture, Anaerobic Any Sourc iliana 01-24-2025 CUAN No growth in 5 days. Normal [facility] Comment on above: Performed By: #### L 200.0200, L350.1000, M100.2900, M100.4001, M100.2000 ####[facility] [address] [place], [address] Anion gap in Serum or Plasma Ordered By: Anurag Irene on 01-21-2025 Anion gap [Moles/Vol] 7 mmol/L - [facility] BUN/creatinine ratioOrdered By: Anurag Irene on 01-21-2025 Urea nitrogen/Creatinine [Mass ratio] 15.6 mg/mg - [facility] Bedside Glucoseon 01-21-2025 FINGERSTICK GLU 151 mg/dL High 74-106 [facility] Comment on above: Result Comment: BRISA GEMENT OF PATIENT CARE PER NURSING PROTOCOL Performed By: #### L 501.080 ####[facility] [address] [place], [address] FINGERSTICK GLU 199 mg/dL High -[address] [place] [address] Comment on above: Result Comment: BRISA GEMENT OF PATIENT CARE PER NURSING PROTOCOL Performed By: #### L 501.080 ####[facility] [address] [place], [address] Bilirubin, totalOrdered By: Anurag Irene on 01-21-2025 Bilirubin [Mass/Vol] 1.52 mg/dL High 0.00-1.30 [facility] Carbon dioxide, total [Moles /volume] in Central venous bloodOrdered By: Anurag Irene on 01-21-2025 CO2 [Moles/Vol] 29.7 mmol/L 21.0-32.0 [facility] Chloride assayOrdered By: Francois Irene on 01-21-2025 Chloride [Moles/Vol] 96 mmol/L Low 98-108 [facility] Comprehensive Metabolic Prof ilon 01-21-2025 Albumin [Mass/Vol] 2.1 g/dL Low 3.5-5.0 [facility] Comment on above: Performed By: #### L 500.4050 ####[facility] [address] [place], [address] Albumin/Globulin [Mass ratio] 0.8 {ratio} Low 0.9-2.4 [facility] Comment on above: Performed By: #### L 500.4050 ####[facility] [address] [place], [address] ALK PHOS 204 U/L High 40-129 [facility] Comment on above: Performed By: #### L 500.4050 ####[facility] [address] [place], [address] ALT [Catalytic activity/Vol] 28 U/L Normal <=46 [facility] Comment on above: Performed By: #### L 500.4050 ####[facility] [address] [place], [address] AST [Catalytic activity/Vol] 48 U/L High <=37 [facility] Comment on above: Performed By: #### L 500.4050 ####[facility] [address] [place], [address] Bilirubin [Mass/Vol] 1.52 mg/dL High 0.00-1.30 [facility] Comment on above: Performed By: #### L 500.4050 ####[facility] [address] [place], [address] BUN/CRE 15.6 RATIO Normal 10-20 [facility] Comment on above: Performed By: #### L 500.4050 ####[facility] [address] [place], [address] Calcium [Mass/Vol] 8.1 mg/dL Normal 7.6-11.0 [facility] Comment on above: Performed By: #### L 500.4050 ####[facility] [address] [place], [address] Chloride [Moles/Vol] 96 mmol/L Low 98-108 [facility] Comment on above: Performed By: #### L 500.4050 ####[facility] [address] [place], [address] CO2 [Moles/Vol] 29.7 mmol/L Normal 21.0-32.0 [facility] Comment on above: Performed By: #### L 500.4050 ####[facility] [address] [place], [address] Creatinine [Mass/Vol] 0.86 mg/dL Normal 0.70-1.20 [facility] Comment on above: Performed By: #### L 500.4050 ####[facility] [address] [place], [address] ECRCL 114.50 ml/min Normal 50-250 [facility] Comment on above: Performed By: #### L 500.4050 ####[facility] [address] [place], [address] GAP 7 Normal 5-15 [facility] Comment on above: Performed By: #### L 500.4050 ####[facility] [address] [place], [address] GFR/1.73 sq M.predicted among non-blacks MDRD (S/P/Bld) [Vol rate/Area] 100 mL/min/{1.73_m2} Normal >60 [facility] Comment on above: Result Comment: mL/m in/1.73m2 CKD-EPI Creatinine Equation (2020) Performed By: #### L 500.4050 ####[facility] [address] [place], [address] Globulin (S) [Mass/Vol] 2.6 g/dL Normal 2.2-4.2 [facility] Comment on above: Performed By: #### L 500.4050 ####[facility] [address] [place], [address] Glucose [Mass/Vol] 199 mg/dL High 70-99 [facility] Comment on above: Performed By: #### L 500.4050 ####[facility] [address] [place], [address] Potassium [Moles/Vol] 3.1 mmol/L Low 3.3-5.1 [facility] Comment on above: Performed By: #### L 500.4050 ####[facility] [address] [place], [address] Sodium [Moles/Vol] 133 mmol/L Normal 133-145 [facility] Comment on above: Performed By: #### L 500.4050 ####[facility] [address] [place], [address] T PROT 4.7 g/dL Low 5.9-8.4 [facility] Comment on above: Performed By: #### L 500.4050 ####[facility] [address] [place], [address] Urea nitrogen [Mass/Vol] 13 mg/dL Normal 4-19 [facility] Comment on above: Performed By: #### L 500.4050 ####[facility] [address] [place], [address] Glomerular filtration rate ( GFR) estimation/1.73 sq m using serum, plasma, or whole bOrdered By: Anurag Irene on 01-21-2025 GFR/1.73 sq M.predicted among non-blacks MDRD (S/P/Bld) [Vol rate/Area] 100 mL/min/{1.73_m2} >60 [facility] By: Anurag Irene on 01-21-2025 Glucose [Mass/Vol] 151 mg/dL High 74-106 [facility] No Panel InformationOrdered By: Anurag Irene on 01-21-2025 48 U/L High <38 [facility] Potassium measurement (mass/ volume)Ordered By: Anurag Irene on 01-21-2025 Potassium (Unsp spec) [Mass/Vol] 3.1 mmol/L Low 3.3-5.1 [facility] Serum creatinine measurement (mass/volume)Ordered By: Anurag Irene on 01-21-2025 Creatinine [Mass/Vol] 0.86 mg/dL 0.70-1.20 [facility] Serum globulin measurementOr dered By: Anurag Irene on 01-21-2025 Globulin (S) [Mass/Vol] 2.6 g/dL 2.2-4.2 [facility] Serum glucose measurement (m ass/volume)Ordered By: Anurag Irene on 01-21-2025 Glucose [Mass/Vol] 199 mg/dL High 70-99 [facility] Serum or plasma alanine thomas otransferase (ALT) measurementOrdered By: Anurag Irene on 01-21-2025 ALT [Catalytic activity/Vol] 28 U/L <47 [facility] Serum or plasma albumin roosevelt urement (mass/volume)Ordered By: Anurag Irene on 01-21-2025 Albumin [Mass/Vol] 2.1 g/dL Low 3.5-5.0 [facility] Serum or plasma albumin/glob ulin mass ratioOrdered By: Anurag Irene on 01-21-2025 Albumin/Globulin [Mass ratio] 0.8 {ratio} Low 0.9-2.4 [facility] Serum or plasma alkaline kendrick sphatase measurementOrdered By: Anurag Irene on 01-21-2025 ALP [Catalytic activity/Vol] 204 U/L High 40-129 [facility] Serum or plasma calcium roosevelt urement (mass/volume)Ordered By: Anurag Irene on 01-21-2025 Calcium [Mass/Vol] 8.1 mg/dL 7.6-11.0 [facility] Serum or plasma urea nitroge n measurement (mass/volume)Ordered By: Anurag Irene on 01-21-2025 Urea nitrogen [Mass/Vol] 13 mg/dL 4-19 [facility] Sodium levelOrdered By: Marni paul Teto on 01-21-2025 Sodium [Moles/Vol] 133 mmol/L 133-145 [facility] Total proteinOrdered By: [place] maite Teto on 01-21-2025 Protein [Mass/Vol] 4.7 g/dL Low 5.9-8.4 [facility] Absolute lymphocyte countOrd ered By: Anurag Irene on 01-20-2025 Lymphocytes Auto (Unsp spec) [#/Vol] 1.10 10*3/uL 0.83-4.51 [facility] Automated lymphocyte count a s percentage of total leukocytesOrdered By: Anurag Irene on 01-20-2025 Lymphocytes/100 WBC Auto (Unsp spec) 16.3 % Low 19-41 [facility] Basophil percentageOrdered B y: Anurag Irene on 01-20-2025 Basophils/100 WBC (Bld) 0.6 % 0-1 [facility] Bedside Glucoseon 01-20-2025 FINGERSTICK GLU 206 mg/dL High 74-106 [facility] Comment on above: Result Comment: BRISA GEMENT OF PATIENT CARE PER NURSING PROTOCOL Performed By: #### L 501.080 ####[facility] [address] [facility] [address] FINGERSTICK GLU 188 mg/dL High 74-106 [facility] Comment on above: Result Comment: BRISA GEMENT OF PATIENT CARE PER NURSING PROTOCOL Performed By: #### L 501.080 ####[facility] [address] [facility] [address] FINGERSTICK GLU 167 mg/dL High -106 [facility] Comment on above: Result Comment: BRISA GEMENT OF PATIENT CARE PER NURSING PROTOCOL Performed By: #### L 501.080 ####[facility] [address] [facility] [address] FINGERSTICK GLU 164 mg/dL High 74-106 [facility] Comment on above: Result Comment: BRISA MOROCHO OF PATIENT CARE PER NURSING PROTOCOL Performed By: #### L 501.080 ####[facility] [address] [place], [address] Blood manual differential co mment interpretation (narrative result)Ordered By: Anurag Irene on 01-20-2025 Manual differential comment Marco Antonio (Bld) [Interp] SCANNED [facility] CBC W/Diff, Automatedon 01-02 PLT EST MOD DEC Normal ADEQ [facility] Comment on above: Performed By: #### L 100.0100 ####[facility] [address] [place], [address] SMEAR COMMENT SCANNED Normal [facility] Comment on above: Performed By: #### L 100.0100 ####[facility] [address] [place], [address] Comprehensive Metabolic Prof ilon 01-20-2025 Albumin [Mass/Vol] 2.0 g/dL Low 3.5-5.0 [facility] Comment on above: Performed By: #### L 500.4050 ####[facility] [address] [place], [address] Albumin/Globulin [Mass ratio] 0.7 {ratio} Low 0.9-2.4 [facility] Comment on above: Performed By: #### L 500.4050 ####[facility] [address] [place], [address] ALK PHOS 211 U/L High 40-129 [facility] Comment on above: Performed By: #### L 500.4050 ####[facility] [address] [place], [address] ALT [Catalytic activity/Vol] 32 U/L Normal <=46 [facility] Comment on above: Performed By: #### L 500.4050 ####[facility] [address] [place], [address] AST [Catalytic activity/Vol] 45 U/L High <=37 [facility] Comment on above: Performed By: #### L 500.4050 ####[facility] [address] [place], [address] Bilirubin [Mass/Vol] 1.61 mg/dL High 0.00-1.30 [facility] Comment on above: Performed By: #### L 500.4050 ####[facility] [address] [place], [address] BUN/CRE 13.4 RATIO Normal 10-20 [facility] Comment on above: Performed By: #### L 500.4050 ####[facility] [address] [place], [address] Calcium [Mass/Vol] 8.1 mg/dL Normal 7.6-11.0 [facility] Comment on above: Performed By: #### L 500.4050 ####[facility] [address] [place], [address] Chloride [Moles/Vol] 95 mmol/L Low 98-108 [facility] Comment on above: Performed By: #### L 500.4050 ####[facility] [address] [place], [address] CO2 [Moles/Vol] 30.3 mmol/L Normal 21.0-32.0 [facility] Comment on above: Performed By: #### L 500.4050 ####[facility] [address] [place], [address] Creatinine [Mass/Vol] 0.87 mg/dL Normal 0.70-1.20 [facility] Comment on above: Performed By: #### L 500.4050 ####[facility] [address] [place], [address] ECRCL 112.61 ml/min Normal 50-250 [facility] Comment on above: Performed By: #### L 500.4050 ####[facility] [address] [place], [address] GAP 7 Normal 5-15 [facility] Comment on above: Performed By: #### L 500.4050 ####[facility] [address] [place], [address] GFR/1.73 sq M.predicted among non-blacks MDRD (S/P/Bld) [Vol rate/Area] 100 mL/min/{1.73_m2} Normal >60 [facility] Comment on above: Result Comment: mL/m in/1.73m2 CKD-EPI Creatinine Equation (2020) Performed By: #### L 500.4050 ####[facility] [address] [place], [address] Globulin (S) [Mass/Vol] 2.9 g/dL Normal 2.2-4.2 [facility] Comment on above: Performed By: #### L 500.4050 ####[facility] [address] [place], [address] Glucose [Mass/Vol] 195 mg/dL High 70-99 [facility] Comment on above: Performed By: #### L 500.4050 ####[facility] [address] [place], [address] Potassium [Moles/Vol] 3.1 mmol/L Low 3.3-5.1 [facility] Comment on above: Performed By: #### L 500.4050 ####[facility] [address] [place], [address] Sodium [Moles/Vol] 133 mmol/L Normal 133-145 [facility] Comment on above: Performed By: #### L 500.4050 ####[facility] [address] [place], [place], [address] T PROT 4.9 g/dL Low 5.9-8.4 [facility] Comment on above: Performed By: #### L 500.4050 ####[facility] [address] [place], [place], [address] Urea nitrogen [Mass/Vol] 12 mg/dL Normal 4-19 [facility] Comment on above: Performed By: #### L 500.4050 ####[facility] [address] [place], [place], [address] Eosinophil percentageOrdered By: Anurag Irene on 01-20-2025 Eosinophils/100 WBC (Bld) 6.5 % High 0-5 [facility] Erythrocyte distribution wid th ratioOrdered By: Anurag Irene on 01-20-2025 Erythrocyte distribution width (RBC) [Ratio] 18.3 % High 11.6-14.6 [facility] Erythrocyte distribution wid th standard deviationOrdered By: Anurag Irene on 01-20-2025 Erythrocyte distribution width (RBC) [Ratio] 58.5 fl High 35.1-43.9 [facility] Hematocrit Auto (Bld) [Volum e fraction]Ordered By: Anurag Irene on 01-20-2025 Hematocrit (Bld) [Volume fraction] 22.9 % Low 40-54 [facility] Hemoglobin measurementOrdere d By: Anurag Irene on 01-20-2025 Hemoglobin (Bld) [Mass/Vol] 7.7 g/dL Low 13.0-16.5 [facility] Immature granulocytes/100 WB C Auto (Bld)Ordered By: Anurag Irene on 01-20-2025 Immature granulocytes/100 WBC (Bld) 1.200 % High 0.0-0.9 [facility] MCV (mean corpuscular volume ) determinationOrdered By: Anurag Irene on 01-20-2025 MCV (RBC) [Entitic vol] 88.1 fL 80-94 [facility] Mean corpuscular hemoglobin (MCH) determinationOrdered By: Anurag Irene on 01-20-2025 MCH (RBC) [Entitic mass] 29.6 pg 27.0-32.0 [facility] Monocyte percentageOrdered B y: Anurag Irene on 01-20-2025 Monocytes/100 WBC (Bld) 11.9 % High 0-10 [facility] Neutrophil percentageOrdered By: Anurag Irene on 01-20-2025 Neutrophils/100 WBC (Bld) 63.5 % 47-70 [facility] Platelet countOrdered By: Francois Irene on 01-20-2025 Platelets (Bld) [#/Vol] 93 10*3/uL Low 150-450 [facility] Platelet estimateOrdered By: Anurag Irene on 01-20-2025 Platelets LM Ql (Bld) MOD DEC ADEQ [facility] RBC Auto (Bld) [#/Vol]Ordere d By: Aunrag Irene on 01-20-2025 RBC (Bld) [#/Vol] 2.60 10*6/uL Low 4.6-6.2 [facility] White blood cell (WBC) count Ordered By: Anurag Irene on 01-20-2025 WBC (Bld) [#/Vol] 6.8 10*3/uL 4.4-11.0 [facility] Activated partial thrombopla stin time (aPTT) in platelet poor plasma by coagulation aOrdered By: Rosendo Renee on 01-19-2025 aPTT Coag (PPP) [Time] 46.6 s High 24.1-36.2 [facility] Albumin, Serumon 01-19-2025 Albumin [Mass/Vol] 2.2 g/dL Low 3.5-5.0 [facility] Comment on above: Performed By: #### L 501.1800, L501.2300, L300.4310, L300.3900, L501.5200 ####[facility] [address] [place], [place], [id number] Bedside Glucoseon 01-19-2025 FINGERSTICK GLU 225 mg/dL High 74-106 [facility] Comment on above: Result Comment: BRISA RASHAWN OF PATIENT CARE PER NURSING PROTOCOL Performed By: #### L 501.080 ####[facility] [address] [place], [address] FINGERSTICK GLU 268 mg/dL High 74-106 [facility] Comment on above: Result Comment: BRISA GEMENT OF PATIENT CARE PER NURSING PROTOCOL Performed By: #### L 501.080 ####[facility] [address] [place], [address] FINGERSTICK GLU 187 mg/dL High 74-106 [facility] Comment on above: Result Comment: BRISA GEMENT OF PATIENT CARE PER NURSING PROTOCOL Performed By: #### L 501.080 ####[facility] [address] [place], [address] FINGERSTICK GLU 198 mg/dL High 74-106 [facility] Comment on above: Result Comment: BRISA GEMENT OF PATIENT CARE PER NURSING PROTOCOL Performed By: #### L 501.080 ####[facility] [address] [place], [address] Bilirubin directOrdered By: Anurag Irene on 01-19-2025 Bilirubin.direct [Mass/Vol] 1.00 mg/dL High 0.00-0.30 [facility] Bilirubin, Directon 01-20-20 25 Bilirubin.direct [Mass/Vol] 1.00 mg/dL High 0.00-0.30 [facility] Comment on above: Performed By: #### L 501.4700, L100.0100, L500.4050 ####[facility] [address] [place], [address] Body Fluid Culton 01-19-2025 BFC Culture exhibits no growth. Normal [facility] Comment on above: Performed By: #### L 200.0200, L350.1000, M100.2900, M100.4001, M100.2000 ####[facility] [address] [place], [address] CBC W/Diff, Automatedon 01-02 Absolute Lymph 1.08 X10 3/uL Normal 0.83-4.51 [facility] Comment on above: Performed By: #### L 501.4700, L100.0100, L500.4050 ####[facility] [address] [place], [address] Absolute Neut 5.4 X10 3/uL Normal 2.0-7.7 [facility] Comment on above: Performed By: #### L 501.4700, L100.0100, L500.4050 ####[facility] [address] [place], [address] Basophils/100 WBC (Bld) 0.5 % Normal 0-1 [facility] Comment on above: Performed By: #### L 501.4700, L100.0100, L500.4050 ####[facility] [address] [place], [address] Eosinophils/100 WBC (Bld) 5.8 % High 0-5 [facility] Comment on above: Performed By: #### L 501.4700, L100.0100, L500.4050 ####[facility] [address] [place], [address] Erythrocyte distribution width (RBC) [Ratio] 18.6 % High 11.6-14.6 [facility] Comment on above: Performed By: #### L 501.4700, L100.0100, L500.4050 ####[facility] [address] [place], [address] Hematocrit (Bld) [Volume fraction] 22.3 % Low 40-54 [facility] Comment on above: Performed By: #### L 501.4700, L100.0100, L500.4050 ####[facility] [address] [place], [address] Hemoglobin (Bld) [Mass/Vol] 7.6 g/dL Low 13.0-16.5 [facility] Comment on above: Performed By: #### L 501.4700, L100.0100, L500.4050 ####[facility] [address] [place], [address] IG% 1.400 High 0.0-0.9 [facility] Comment on above: Result Comment: IG% - Immature Granulocytes (promyelocytes, myelocytes andmetamyelocytes) > 1% indicates that a LEFT SHIFT is Present. Performed By: #### L 501.4700, L100.0100, L500.4050 ####[facility] [address] [place], [address] Lymphocytes/100 WBC (Bld) 13.6 % Low 19-41 [facility] Comment on above: Performed By: #### L 501.4700, L100.0100, L500.4050 ####[facility] [address] [place], [address] MCH (RBC) [Entitic mass] 30.3 pg Normal 27.0-32.0 [facility] Comment on above: Performed By: #### L 501.4700, L100.0100, L500.4050 ####[facility] [address] [place], [address] MCHC (RBC) [Mass/Vol] 34.1 g/dL Normal 32-36 [facility] Comment on above: Performed By: #### L 501.4700, L100.0100, L500.4050 ####[facility] [address] [place], [address] MCV (RBC) [Entitic vol] 88.8 fL Normal 80-94 [facility] Comment on above: Performed By: #### L 501.4700, L100.0100, L500.4050 ####[facility] [address] [place], [address] Monocytes/100 WBC (Bld) 11.0 % High 0-10 [facility] Comment on above: Performed By: #### L 501.4700, L100.0100, L500.4050 ####[facility] [address] [place], [address] Neutrophils/100 WBC (Bld) 67.7 % Normal 47-70 [facility] Comment on above: Performed By: #### L 501.4700, L100.0100, L500.4050 ####[facility] [address] [place], [address] Nucleated RBC (Bld) [#/Vol] 0 10*3/uL Normal 0-5 [facility] Comment on above: Performed By: #### L 501.4700, L100.0100, L500.4050 ####[facility] [address] [place], [address] Platelet mean volume (Bld) [Entitic vol] 11.1 fL Normal 6.2-12.0 [facility] Comment on above: Performed By: #### L 501.4700, L100.0100, L500.4050 ####[facility] [address] [place], [address] Platelets (Bld) [#/Vol] 107 10*3/uL Low 150-450 [facility] Comment on above: Performed By: #### L 501.4700, L100.0100, L500.4050 ####[facility] [address] [place], [address] RBC (Bld) [#/Vol] 2.51 10*6/uL Low 4.6-6.2 [facility] Comment on above: Performed By: #### L 501.4700, L100.0100, L500.4050 ####[facility] [address] [place], [address] RDW SD 59.0 fl High 35.1-43.9 [facility] Comment on above: Performed By: #### L 501.4700, L100.0100, L500.4050 ####[facility] [address] [place], [address] WBC (Bld) [#/Vol] 7.9 10*3/uL Normal 4.4-11.0 [facility] Comment on above: Performed By: #### L 501.4700, L100.0100, L500.4050 ####[facility] [address] [place], [address] Comprehensive Metabolic Prof gaon 01-19-2025 Albumin [Mass/Vol] 2.2 g/dL Low 3.5-5.0 [facility] Comment on above: Performed By: #### L 501.4700, L100.0100, L500.4050 ####[facility] [address] [place], [address] Albumin/Globulin [Mass ratio] 0.9 {ratio} Normal 0.9-2.4 [facility] Comment on above: Performed By: #### L 501.4700, L100.0100, L500.4050 ####[facility] [address] [place], [address] ALK PHOS 225 U/L High 40-129 [facility] Comment on above: Performed By: #### L 501.4700, L100.0100, L500.4050 ####[facility] [address] [place], [address] ALT [Catalytic activity/Vol] 34 U/L Normal <=46 [facility] Comment on above: Performed By: #### L 501.4700, L100.0100, L500.4050 ####[facility] [address] [place], [address] AST [Catalytic activity/Vol] 52 U/L High <=37 [facility] Comment on above: Performed By: #### L 501.4700, L100.0100, L500.4050 ####[facility] [address] [place], [address] Bilirubin [Mass/Vol] 1.70 mg/dL High 0.00-1.30 [facility] Comment on above: Performed By: #### L 501.4700, L100.0100, L500.4050 ####[facility] [address] [place], [address] BUN/CRE 10.4 RATIO Normal 10-20 [facility] Comment on above: Performed By: #### L 501.4700, L100.0100, L500.4050 ####[facility] [address] [place], [address] Calcium [Mass/Vol] 7.9 mg/dL Normal 7.6-11.0 [facility] Comment on above: Performed By: #### L 501.4700, L100.0100, L500.4050 ####[facility] [address] [place], [address] Chloride [Moles/Vol] 94 mmol/L Low 98-108 [facility] Comment on above: Performed By: #### L 501.4700, L100.0100, L500.4050 ####[facility] [address] [place], [address] CO2 [Moles/Vol] 30.7 mmol/L Normal 21.0-32.0 [facility] Comment on above: Performed By: #### L 501.4700, L100.0100, L500.4050 ####[facility] [address] [place], [address] Creatinine [Mass/Vol] 1.05 mg/dL Normal 0.70-1.20 [facility] Comment on above: Performed By: #### L 501.4700, L100.0100, L500.4050 ####[facility] [address] [place], [address] ECRCL 93.35 ml/min Normal 50-250 [facility] Comment on above: Performed By: #### L 501.4700, L100.0100, L500.4050 ####[facility] [address] [place], [address] GAP 7 Normal 5-15 [facility] Comment on above: Performed By: #### L 501.4700, L100.0100, L500.4050 ####[facility] [address] [place], [address] GFR/1.73 sq M.predicted among non-blacks MDRD (S/P/Bld) [Vol rate/Area] 82 mL/min/{1.73_m2} Normal >60 [facility] Comment on above: Result Comment: mL/m in/1.73m2 CKD-EPI Creatinine Equation (2020) Performed By: #### L 501.4700, L100.0100, L500.4050 ####[facility] [address] [place], [address] Globulin (S) [Mass/Vol] 2.6 g/dL Normal 2.2-4.2 [facility] Comment on above: Performed By: #### L 501.4700, L100.0100, L500.4050 ####[facility] [address] [place], [address] Glucose [Mass/Vol] 220 mg/dL High 70-99 [facility] Comment on above: Performed By: #### L 501.4700, L100.0100, L500.4050 ####[facility] [address] [place], [address] Potassium [Moles/Vol] 3.0 mmol/L Low 3.3-5.1 [facility] Comment on above: Performed By: #### L 501.4700, L100.0100, L500.4050 ####[facility] [address] [place], [address] Sodium [Moles/Vol] 132 mmol/L Low 133-145 [facility] Comment on above: Performed By: #### L 501.4700, L100.0100, L500.4050 ####[facility] [address] [place], [address] T PROT 4.8 g/dL Low 5.9-8.4 [facility] Comment on above: Performed By: #### L 501.4700, L100.0100, L500.4050 ####[facility] [address] [place], [address] Urea nitrogen [Mass/Vol] 11 mg/dL Normal 4-19 [facility] Comment on above: Performed By: #### L 501.4700, L100.0100, L500.4050 ####[facility] [address] [place], [address] Gram Stainon 01-19-2025 GS Centrifuged Specimen ? Culture performed on centrifuged specimen Gram Stain No organisms seen No cells seen Normal [facility] Comment on above: Performed By: #### L 200.0200, L350.1000, M100.2900, M100.4001, M100.2000 ####[facility] [address] [place], [address] Liver Profileon 01-19-2025 ALB Normal 3.5-5.0 [facility] Comment on above: Result Comment: MOVE D TO DIFFERENT REQ- SEE C50 Performed By: #### L 500.3400 ####[facility] [address] [place], [address] ALK PHOS Normal 40-129 [facility] Comment on above: Result Comment: MOVE D TO DIFFERENT REQ- SEE C50 Performed By: #### L 500.3400 ####[facility] [address] [place], [address] ALT Normal <=46 [facility] Comment on above: Result Comment: MOVE D TO DIFFERENT REQ- SEE C50 Performed By: #### L 500.3400 ####[facility] [address] [place], [address] AST Normal <=37 [facility] Comment on above: Result Comment: MOVE D TO DIFFERENT REQ- SEE C50 Performed By: #### L 500.3400 ####[facility] [address] [place], [address] D BILI Normal 0.00-0.30 [facility] Comment on above: Result Comment: MOVE D TO DIFFERENT REQ- SEE C50 Performed By: #### L 500.3400 ####[facility] [address] [place], [address] T BILI Normal 0.00-1.30 [facility] Comment on above: Result Comment: MOVE D TO DIFFERENT REQ- SEE C50 Performed By: #### L 500.3400 ####[facility] [address] [place], [address] T PROT Normal 5.9-8.4 [facility] Comment on above: Result Comment: MOVE D TO DIFFERENT REQ- SEE C50 Performed By: #### L 500.3400 ####[facility] [address] [place], [address] Magnesiumon 01-19-2025 Magnesium [Mass/Vol] 1.7 mg/dL Normal 1.5-2.2 [facility] Comment on above: Performed By: #### L 501.1800, L501.2300, L300.4310, L300.3900, L501.5200 ####[facility] [address] [place], [address] Magnesium measurement (mass/ volume)Ordered By: Rosendo Renee on 01-19-2025 Magnesium (Unsp spec) [Mass/Vol] 1.7 mg/dL 1.5-2.2 [facility] Partial Thromboplast Timeon 01-19-2025 aPTT Coag (Bld) [Time] 46.6 s High 24.1-36.2 [facility] Comment on above: Performed By: #### L 501.1800, L501.2300, L300.4310, L300.3900, L501.5200 ####[facility] [address] [place], [address] Phosphoruson 01-19-2025 Phosphate [Mass/Vol] 3.5 mg/dL Normal 2.7-4.5 [facility] Comment on above: Performed By: #### L 501.1800, L501.2300, L300.4310, L300.3900, L501.5200 ####[facility] [address] [place], [address] Prothrombin Time w/INRon INR Coag (PPP) [Relative time] 2.0 {INR} Normal [facility] Comment on above: Performed By: #### L 501.1800, L501.2300, L300.4310, L300.3900, L501.5200 ####[facility] [address] [place], [address] PT Coag (PPP) [Time] 22.8 s High 11.7-14.9 [facility] Comment on above: Performed By: #### L 501.1800, L501.2300, L300.4310, L300.3900, L501.5200 ####[facility] [address] [place], [address] Prothrombin timeOrdered By: Rosendo Renee on 01-19-2025 PT Coag (PPP) [Time] 22.8 s High 11.7-14.9 [facility] Abdomen Limitedon 01-18-[address] [facility] Anaerobic cultureOrdered By: Anurag Irene on 01-18-2025 Bacteria identified Anaer cx Nom (Unsp spec) No growth in [address] [facility] Basic Metabolic Profile (BMP )on 01-18-2025 BUN/CRE 9.8 RATIO Low 10-20 [facility] Comment on above: Performed By: #### L 500.2500 ####[facility] [address] [place], [address] Calcium [Mass/Vol] 7.7 mg/dL Normal 7.6-11.0 [facility] Comment on above: Performed By: #### L 500.2500 ####[facility] [address] [place], [address] Chloride [Moles/Vol] 92 mmol/L Low 98-108 [facility] Comment on above: Performed By: #### L 500.2500 ####[facility] [address] [place], [address] CO2 [Moles/Vol] 31.5 mmol/L Normal 21.0-32.0 [facility] Comment on above: Performed By: #### L 500.2500 ####[facility] [address] [place], [address] Creatinine [Mass/Vol] 0.85 mg/dL Normal 0.70-1.20 [facility] Comment on above: Performed By: #### L 500.2500 ####[facility] [address] [place], [address] ECRCL 116.49 ml/min Normal 50-250 [facility] Comment on above: Performed By: #### L 500.2500 ####[facility] [address] [place], [address] GAP 8 Normal 5-15 [facility] Comment on above: Performed By: #### L 500.2500 ####[facility] [address] [place], [address] GFR/1.73 sq M.predicted among non-blacks MDRD (S/P/Bld) [Vol rate/Area] 101 mL/min/{1.73_m2} Normal >60 [facility] Comment on above: Result Comment: mL/m in/1.73m2 CKD-EPI Creatinine Equation (2020) Performed By: #### L 500.2500 ####[facility] [address] [place], [address] Glucose [Mass/Vol] 228 mg/dL High 70-99 [facility] Comment on above: Performed By: #### L 500.2500 ####[facility] [address] [place], [address] Potassium [Moles/Vol] 2.8 mmol/L Low 3.3-5.1 [facility] Comment on above: Performed By: #### L 500.2500 ####[facility] [address] [place], [address] Sodium [Moles/Vol] 132 mmol/L Low 133-145 [facility] Comment on above: Performed By: #### L 500.2500 ####[facility] [address] [place], [address] Urea nitrogen [Mass/Vol] 8 mg/dL Normal 4-19 [facility] Comment on above: Performed By: #### L 500.2500 ####[facility] [address] [place], [address] Bedside Glucoseon 01-18-2025 FINGERSTICK GLU 250 mg/dL High 74-106 [facility] Comment on above: Result Comment: BRISA GEMENT OF PATIENT CARE PER NURSING PROTOCOL Performed By: #### L 501.080 ####[facility] [address] [facility] [address] FINGERSTICK GLU 158 mg/dL High 74-106 [facility] Comment on above: Result Comment: BRISA GEMENT OF PATIENT CARE PER NURSING PROTOCOL Performed By: #### L 501.080 ####[facility] [address] [facility] [address] FINGERSTICK GLU 142 mg/dL High 74-106 [facility] Comment on above: Result Comment: BRISA GEMENT OF PATIENT CARE PER NURSING PROTOCOL Performed By: #### L 501.080 ####[facility] [address] [facility] [address] FINGERSTICK GLU 171 mg/dL High -106 [facility] Comment on above: Result Comment: BRISA GEMENT OF PATIENT CARE PER NURSING PROTOCOL Performed By: #### L 501.080 ####[facility] [address] [place] [address] Body fluid appearance (nomin al result)Ordered By: Anurag Irene on 01-18-2025 Appearance (Body fld) CLEAR [facility] Body fluid color determinati onOrdered By: Anurag Irene on 01-18-2025 Color (Body fld) LT YEL [facility] Body fluid cultureOrdered By : Anurag Irene on 01-18-2025 Microbial culture, body fluid Culture exhibits no growth. [facility] Body fluid leukocytes count (number/volume)Ordered By: Anurag Irene on 01-18-2025 WBC (Body fld) [#/Vol] 0.143 10*3/uL [facility] Body fluid lymphocytes/100 l eukocytesOrdered By: Anurag Irene on 01-18-2025 Lymphocytes/100 WBC (Body fld) 24 % [facility] Body fluid macrophage countO rdered By: Anurag Irene on 01-18-2025 Macrophages (Body fld) [#/Vol] 46 % [facility] Body fluid mesothelial cell percentageOrdered By: Anurag Irene on 01-18-2025 Mesothelial cells/100 WBC (Body fld) 7 % [facility] Body fluid mononuclear cell percentageOrdered By: Anurag Irene on 01-18-2025 Mononuclear cells/100 WBC (Body fld) 75.6 % [facility] Body fluid other cell count as percentage of leukocytesOrdered By: Anurag Irene on 01-18-2025 Other cells/100 WBC (Body fld) 7 % [facility] Other cells/100 WBC (Body fld) ACCESS ANALYST [facility] Body fluid protein measureme nt (mass/volume)Ordered By: Anurag Irene on 01-18-2025 Protein (Body fld) [Mass/Vol] 0.3 g/dL Not Establ. [facility] Body fluid segmented neutrop hils count (number/volume)Ordered By: Anurag Irene on 01-18-2025 Segmented neutrophils (Body fld) [#/Vol] 20 % [facility] Body fluid total cell countO rdered By: Anurag Irene on 01-18-2025 Cells Counted Total (Body fld) [#] 0.172 10^3/ul [facility] CBC W/Diff, Automatedon 01-02 Absolute Lymph 1.13 X10 3/uL Normal 0.83-4.51 [facility] Comment on above: Performed By: #### L 100.0100 ####[facility] [address] [place], [address] Absolute Neut 5.5 X10 3/uL Normal 2.0-7.7 [facility] Comment on above: Performed By: #### L 100.0100 ####[facility] [address] [place], [address] Basophils/100 WBC (Bld) 0.6 % Normal 0-1 [facility] Comment on above: Performed By: #### L 100.0100 ####[facility] [address] [place], [address] Eosinophils/100 WBC (Bld) 6.1 % High 0-5 [facility] Comment on above: Performed By: #### L 100.0100 ####[facility] [address] [place], [address] Erythrocyte distribution width (RBC) [Ratio] 18.7 % High 11.6-14.6 [facility] Comment on above: Performed By: #### L 100.0100 ####[facility] [address] [place], [address] Hematocrit (Bld) [Volume fraction] 22.6 % Low 40-54 [facility] Comment on above: Performed By: #### L 100.0100 ####[facility] [address] [place], [address] Hemoglobin (Bld) [Mass/Vol] 7.7 g/dL Low 13.0-16.5 [facility] Comment on above: Performed By: #### L 100.0100 ####[facility] [address] [place], [address] IG% 1.200 High 0.0-0.9 [facility] Comment on above: Result Comment: IG% - Immature Granulocytes (promyelocytes, myelocytes andmetamyelocytes) > 1% indicates that a LEFT SHIFT is Present. Performed By: #### L 100.0100 ####[facility] [address] [place], [address] Lymphocytes/100 WBC (Bld) 14.0 % Low 19-41 [facility] Comment on above: Performed By: #### L 100.0100 ####[facility] [address] [place], [address] MCH (RBC) [Entitic mass] 30.1 pg Normal 27.0-32.0 [facility] Comment on above: Performed By: #### L 100.0100 ####[facility] [address] [place], [address] MCHC (RBC) [Mass/Vol] 34.1 g/dL Normal 32-36 [facility] Comment on above: Performed By: #### L 100.0100 ####[facility] [address] [place], [address] MCV (RBC) [Entitic vol] 88.3 fL Normal 80-94 [facility] Comment on above: Performed By: #### L 100.0100 ####[facility] [address] [place], [address] Monocytes/100 WBC (Bld) 10.0 % Normal 0-10 [facility] Comment on above: Performed By: #### L 100.0100 ####[facility] [address] [place], [address] Neutrophils/100 WBC (Bld) 68.1 % Normal 47-70 [facility] Comment on above: Performed By: #### L 100.0100 ####[facility] [address] [place], [address] Nucleated RBC (Bld) [#/Vol] 0 10*3/uL Normal 0-5 [facility] Comment on above: Performed By: #### L 100.0100 ####[facility] [address] [place], [address] Platelet mean volume (Bld) [Entitic vol] 10.5 fL Normal 6.2-12.0 [facility] Comment on above: Performed By: #### L 100.0100 ####[facility] [address] [place], [address] Platelets (Bld) [#/Vol] 107 10*3/uL Low 150-450 [facility] Comment on above: Performed By: #### L 100.0100 ####[facility] [address] [place], [address] RBC (Bld) [#/Vol] 2.56 10*6/uL Low 4.6-6.2 [facility] Comment on above: Performed By: #### L 100.0100 ####[facility] [address] [place], [address] RDW SD 58.9 fl High 35.1-43.9 [facility] Comment on above: Performed By: #### L 100.0100 ####[facility] [address] [place], [address] WBC (Bld) [#/Vol] 8.1 10*3/uL Normal 4.4-11.0 [facility] Comment on above: Performed By: #### L 100.0100 ####[facility] [address] [place], [address] Cytology report of Body flui d Cyto stainOrdered By: Anurag Irene on 01-18-2025 Cytology report Cyto stain Doc (Body fld) SEE PATHOLOGY REPORT [facility] Cytology, Body Fluid / CSFon 01-18-2025 CYTOLOGY,BF/CSF SEE PATHOLOGY REPORT Normal [facility] Comment on above: Result Comment: Spec imen submitted to Anatomical Pathology Department fortesting. Performed By: #### L 200.0200, L350.1000, M100.2900, M100.4001, M100.2000 ####[facility] [address] [place], [address] Glucose, Body Fluidon 2024 GLUC, BODY FLD 154 mg/dL Normal Not Establ. [facility] Comment on above: Performed By: #### L 503.0100, L503.0300 ####[facility] [address] [place], [address] Gram stainOrdered By: Anuradha Irene on 01-18-2025 Microscopic observation Gram stain Nom (Unsp spec) [facility] Magnesiumon 06-17-2025 Magnesium [Mass/Vol] 1.6 mg/dL Normal 1.5-2.2 [facility] Comment on above: Performed By: #### L 501.2300, L501.5200 ####[facility] [address] [place], [address] Monocyte detectionOrdered By : Anurag Irene on 01-18-2025 Monocytes/100 WBC (Bld) 3 % [facility] No Panel InformationOrdered By: Anurag Irene on 01-18-2025 218 /mm3 [facility] SEE COMMENT [facility] Paracentesis with USon 01-18 Paracentesis with US Normal [facility] Pathologist interpretation o f Body fluid testsOrdered By: Anurag Irene on 01-18-2025 Pathologist interpretation (Body fld) [Interp] Reviewed [facility] Phosphoruson 01-18-2025 Phosphate [Mass/Vol] 3.7 mg/dL Normal 2.7-4.5 [facility] Comment on above: Performed By: #### L 501.2300, L501.5200 ####[facility] [address] [place], [address] Protein, Body Fluidon 2024 Protein [Mass/Vol] 0.3 g/dL Normal Not Establ. [facility] Comment on above: Performed By: #### L 503.0100, L503.0300 ####[facility] [address] [place], [address] Prothrombin Time w/INRon INR Coag (PPP) [Relative time] 2.0 {INR} Normal [facility] Comment on above: Performed By: #### L 300.3900 ####[facility] [address] [place], [address] PT Coag (PPP) [Time] 22.9 s High 11.7-14.9 [facility] Comment on above: Performed By: #### L 300.3900 ####[facility] [address] [place], [address] Special Stain Group IIon Special Stain Group II Normal [facility] Comment on above: Performed By: #### P SSII ####[facility] [address] [place], [address] Specimen source identificati on of body fluidOrdered By: Anurag Irene on 01-18-2025 Specimen source Nom (Body fld) PERITONEAL FLUID [facility] Stool Occult Blood iFOBon STOB Negative Normal [facility] Comment on above: Performed By: #### M 100.7900 ####[facility] [address] [place], [address] Stool gastrointestinal hemog lobin detection by immunologic methodOrdered By: Cielo Tovar on 01-18-2025 Lower GI hemoglobin IA Ql (Stl) [facility] Bedside Glucoseon 01-17-2025 FINGERSTICK GLU 180 mg/dL High 74-106 [facility] Comment on above: Result Comment: BRISA GEMENT OF PATIENT CARE PER NURSING PROTOCOL Performed By: #### L 501.080 ####[facility] [address] [place], [address] FINGERSTICK GLU 236 mg/dL High [address] [place] [address] Comment on above: Result Comment: BRISA GEMENT OF PATIENT CARE PER NURSING PROTOCOL Performed By: #### L 501.080 ####[facility] [address] [place], [address] FINGERSTICK GLU 141 mg/dL High -106 [facility] Comment on above: Result Comment: BRISA GEMENT OF PATIENT CARE PER NURSING PROTOCOL Performed By: #### L 501.080 ####[facility] [address] [place], [address] FINGERSTICK GLU 173 mg/dL High 74-106 [facility] Comment on above: Result Comment: BRISA GEMENT OF PATIENT CARE PER NURSING PROTOCOL Performed By: #### L 501.080 ####[facility] [address] [place], [address] CBC W/Diff, Automatedon 06-08 09-2024 Absolute Lymph 1.09 X10 3/uL Normal 0.83-4.51 [facility] Comment on above: Performed By: #### L 100.0100 ####[facility] [address] [place], [address] Absolute Neut 5.7 X10 3/uL Normal 2.0-7.7 [facility] Comment on above: Performed By: #### L 100.0100 ####[facility] [address] [place], [address] Basophils/100 WBC (Bld) 0.5 % Normal 0-1 [facility] Comment on above: Performed By: #### L 100.0100 ####[facility] [address] [place], [address] Eosinophils/100 WBC (Bld) 6.8 % High 0-5 [facility] Comment on above: Performed By: #### L 100.0100 ####[facility] [address] [place], [address] Erythrocyte distribution width (RBC) [Ratio] 18.8 % High 11.6-14.6 [facility] Comment on above: Performed By: #### L 100.0100 ####[facility] [address] [place], [address] Hematocrit (Bld) [Volume fraction] 22.2 % Low 40-54 [facility] Comment on above: Performed By: #### L 100.0100 ####[facility] [address] [place], [address] Hemoglobin (Bld) [Mass/Vol] 7.5 g/dL Low 13.0-16.5 [facility] Comment on above: Performed By: #### L 100.0100 ####[facility] [address] [place], [address] IG% 1.100 High 0.0-0.9 [facility] Comment on above: Result Comment: IG% - Immature Granulocytes (promyelocytes, myelocytes andmetamyelocytes) > 1% indicates that a LEFT SHIFT is Present. Performed By: #### L 100.0100 ####[facility] [address] [place], [address] Lymphocytes/100 WBC (Bld) 12.9 % Low 19-41 [facility] Comment on above: Performed By: #### L 100.0100 ####[facility] [address] [place], [address] MCH (RBC) [Entitic mass] 30.0 pg Normal 27.0-32.0 [facility] Comment on above: Performed By: #### L 100.0100 ####[facility] [address] [place], [address] MCHC (RBC) [Mass/Vol] 33.8 g/dL Normal 32-36 [facility] Comment on above: Performed By: #### L 100.0100 ####[facility] [address] [place], [address] MCV (RBC) [Entitic vol] 88.8 fL Normal 80-94 [facility] Comment on above: Performed By: #### L 100.0100 ####[facility] [address] [place], [address] Monocytes/100 WBC (Bld) 11.5 % High 0-10 [facility] Comment on above: Performed By: #### L 100.0100 ####[facility] [address] [place], [address] Neutrophils/100 WBC (Bld) 67.2 % Normal 47-70 [facility] Comment on above: Performed By: #### L 100.0100 ####[facility] [address] [place], [address] Nucleated RBC (Bld) [#/Vol] 0 10*3/uL Normal 0-5 [facility] Comment on above: Performed By: #### L 100.0100 ####[facility] [address] [place], [address] Platelet mean volume (Bld) [Entitic vol] 10.7 fL Normal 6.2-12.0 [facility] Comment on above: Performed By: #### L 100.0100 ####[facility] [address] [place], [address] Platelets (Bld) [#/Vol] 109 10*3/uL Low 150-450 [facility] Comment on above: Performed By: #### L 100.0100 ####[facility] [address] [place], [address] RBC (Bld) [#/Vol] 2.50 10*6/uL Low 4.6-6.2 [facility] Comment on above: Performed By: #### L 100.0100 ####[facility] [address] [place], [address] RDW SD 58.8 fl High 35.1-43.9 [facility] Comment on above: Performed By: #### L 100.0100 ####[facility] [address] [place], [address] WBC (Bld) [#/Vol] 8.4 10*3/uL Normal 4.4-11.0 [facility] Comment on above: Performed By: #### L 100.0100 ####[facility] [address] [place], [address] Bedside Glucoseon 01-16-2025 FINGERSTICK GLU 227 mg/dL High 74-106 [facility] Comment on above: Result Comment: BRISA GEMENT OF PATIENT CARE PER NURSING PROTOCOL Performed By: #### L 501.080 ####[facility] [address] [place], [address] FINGERSTICK GLU 202 mg/dL High 74-106 [facility] Comment on above: Result Comment: BRISA GEMENT OF PATIENT CARE PER NURSING PROTOCOL Performed By: #### L 501.080 ####[facility] [address] [place], [address] FINGERSTICK GLU 177 mg/dL High -106 [facility] Comment on above: Result Comment: BRISA GEMENT OF PATIENT CARE PER NURSING PROTOCOL Performed By: #### L 501.080 ####[facility] [address] [place], [address] FINGERSTICK GLU 173 mg/dL High -[address] [place] [address] Comment on above: Result Comment: BRISA GEMENT OF PATIENT CARE PER NURSING PROTOCOL Performed By: #### L 501.080 ####[facility] [address] [place], [address] CBC W/Diff, Automatedon 06- Absolute Lymph 1.16 X10 3/uL Normal 0.83-4.51 [facility] Comment on above: Performed By: #### L 100.0100 ####[facility] [address] [place], [address] Absolute Neut 5.2 X10 3/uL Normal 2.0-7.7 [facility] Comment on above: Performed By: #### L 100.0100 ####[facility] [address] [place], [address] Basophils/100 WBC (Bld) 0.4 % Normal 0-1 [facility] Comment on above: Performed By: #### L 100.0100 ####[facility] [address] [place], [address] Eosinophils/100 WBC (Bld) 6.5 % High 0-5 [facility] Comment on above: Performed By: #### L 100.0100 ####[facility] [address] [place], [address] Erythrocyte distribution width (RBC) [Ratio] 18.5 % High 11.6-14.6 [facility] Comment on above: Performed By: #### L 100.0100 ####[facility] [address] [place], [address] Hematocrit (Bld) [Volume fraction] 22.8 % Low 40-54 [facility] Comment on above: Performed By: #### L 100.0100 ####[facility] [address] [place], [address] Hemoglobin (Bld) [Mass/Vol] 7.8 g/dL Low 13.0-16.5 [facility] Comment on above: Performed By: #### L 100.0100 ####[facility] [address] [place], [address] IG% 0.900 Normal 0.0-0.9 [facility] Comment on above: Result Comment: IG% - Immature Granulocytes (promyelocytes, myelocytes andmetamyelocytes) > 1% indicates that a LEFT SHIFT is Present. Performed By: #### L 100.0100 ####[facility] [address] [place], [address] Lymphocytes/100 WBC (Bld) 14.6 % Low 19-41 [facility] Comment on above: Performed By: #### L 100.0100 ####[facility] [address] [place], [address] MCH (RBC) [Entitic mass] 30.2 pg Normal 27.0-32.0 [facility] Comment on above: Performed By: #### L 100.0100 ####[facility] [address] [place], [address] MCHC (RBC) [Mass/Vol] 34.2 g/dL Normal 32-36 [facility] Comment on above: Performed By: #### L 100.0100 ####[facility] [address] [place], [address] MCV (RBC) [Entitic vol] 88.4 fL Normal 80-94 [facility] Comment on above: Performed By: #### L 100.0100 ####[facility] [address] [place], [address] Monocytes/100 WBC (Bld) 12.7 % High 0-10 [facility] Comment on above: Performed By: #### L 100.0100 ####[facility] [address] [place], [address] Neutrophils/100 WBC (Bld) 64.9 % Normal 47-70 [facility] Comment on above: Performed By: #### L 100.0100 ####[facility] [address] [place], [address] Nucleated RBC (Bld) [#/Vol] 0 10*3/uL Normal 0-5 [facility] Comment on above: Performed By: #### L 100.0100 ####[facility] [address] [place], [address] Platelet mean volume (Bld) [Entitic vol] 10.8 fL Normal 6.2-12.0 [facility] Comment on above: Performed By: #### L 100.0100 ####[facility] [address] [place], [address] Platelets (Bld) [#/Vol] 111 10*3/uL Low 150-450 [facility] Comment on above: Performed By: #### L 100.0100 ####[facility] [address] [place], [address] RBC (Bld) [#/Vol] 2.58 10*6/uL Low 4.6-6.2 [facility] Comment on above: Performed By: #### L 100.0100 ####[facility] [address] [place], [address] RDW SD 57.9 fl High 35.1-43.9 [facility] Comment on above: Performed By: #### L 100.0100 ####[facility] [address] [place], [address] WBC (Bld) [#/Vol] 7.9 10*3/uL Normal 4.4-11.0 [facility] Comment on above: Performed By: #### L 100.0100 ####[facility] [address] [place], [address] Comprehensive Metabolic Prof ilon 01-16-2025 Albumin [Mass/Vol] 2.2 g/dL Low 3.5-5.0 [facility] Comment on above: Performed By: #### L 500.4050 ####[facility] [address] [place], [address] Albumin/Globulin [Mass ratio] 0.9 {ratio} Normal 0.9-2.4 [facility] Comment on above: Performed By: #### L 500.4050 ####[facility] [address] [place], [address] ALK PHOS 247 U/L High 40-129 [facility] Comment on above: Performed By: #### L 500.4050 ####[facility] [address] [place], [address] ALT [Catalytic activity/Vol] 49 U/L High <=46 [facility] Comment on above: Performed By: #### L 500.4050 ####[facility] [address] [place], [address] AST [Catalytic activity/Vol] 51 U/L High <=37 [facility] Comment on above: Performed By: #### L 500.4050 ####[facility] [address] [place], [address] Bilirubin [Mass/Vol] 1.89 mg/dL High 0.00-1.30 [facility] Comment on above: Performed By: #### L 500.4050 ####[facility] [address] [place], [address] BUN/CRE 7.1 RATIO Low 10-20 [facility] Comment on above: Performed By: #### L 500.4050 ####[facility] [address] [place], [address] Calcium [Mass/Vol] 7.8 mg/dL Normal 7.6-11.0 [facility] Comment on above: Performed By: #### L 500.4050 ####[facility] [address] [place], [address] Chloride [Moles/Vol] 93 mmol/L Low 98-108 [facility] Comment on above: Performed By: #### L 500.4050 ####[facility] [address] [place], [address] CO2 [Moles/Vol] 31.1 mmol/L Normal 21.0-32.0 [facility] Comment on above: Performed By: #### L 500.4050 ####[facility] [address] [place], [address] Creatinine [Mass/Vol] 0.80 mg/dL Normal 0.70-1.20 [facility] Comment on above: Performed By: #### L 500.4050 ####[facility] [address] [place], [address] ECRCL 118.59 ml/min Normal 50-250 [facility] Comment on above: Performed By: #### L 500.4050 ####[facility] [address] [place], [address] GAP 7 Normal 5-15 [facility] Comment on above: Performed By: #### L 500.4050 ####[facility] [address] [place], [address] GFR/1.73 sq M.predicted among non-blacks MDRD (S/P/Bld) [Vol rate/Area] 103 mL/min/{1.73_m2} Normal >60 [facility] Comment on above: Result Comment: mL/m in/1.73m2 CKD-EPI Creatinine Equation (2020) Performed By: #### L 500.4050 ####[facility] [address] [place], [address] Globulin (S) [Mass/Vol] 2.5 g/dL Normal 2.2-4.2 [facility] Comment on above: Performed By: #### L 500.4050 ####[facility] [address] [place], [address] Glucose [Mass/Vol] 174 mg/dL High 70-99 [facility] Comment on above: Performed By: #### L 500.4050 ####[facility] [address] [place], [address] Potassium [Moles/Vol] 3.3 mmol/L Normal 3.3-5.1 [facility] Comment on above: Performed By: #### L 500.4050 ####[facility] [address] [place], [address] Sodium [Moles/Vol] 132 mmol/L Low 133-145 [facility] Comment on above: Performed By: #### L 500.4050 ####[facility] [address] [place], [address] T PROT 4.8 g/dL Low 5.9-8.4 [facility] Comment on above: Performed By: #### L 500.4050 ####[facility] [address] [place], [address] Urea nitrogen [Mass/Vol] 6 mg/dL Normal 4-19 [facility] Comment on above: Performed By: #### L 500.4050 ####[facility] [address] [place], [address] Serum or plasma vancomycin m easurement (mass/volume)Ordered By: Cielo Tovar on 01-16-2025 Vancomycin [Mass/Vol] 7.7 ug/mL 0.0-15.0 [facility] Vancomycin, Random Levelon 0 01-16-2025 VANCO, RANDOM 7.7 ug/mL Normal 0.0-15.0 [facility] Comment on above: Result Comment: VANC OMYCIN STANDARD DRUG THERAPY: CRITICAL VALUE IS > 15.0 mg/LVANCOMYCIN HIGH INTENSITY THERAPY: CRITICAL VALUE IS > 20.0 mg/LPLEASE CONTACT PHARMACY SERVICES (#6192) FOR INTERPRETATIONOF RESULTS. THIS RESULT DOES NOT REPRESENT A PEAK OR TROUGHLEVEL FOR THIS DRUG. Performed By: #### L 501.8850 ####[facility] [address] [place], [address] Bedside Glucoseon 01-15-2025 FINGERSTICK GLU 237 mg/dL High 74-106 [facility] Comment on above: Result Comment: BRISA GEMENT OF PATIENT CARE PER NURSING PROTOCOL Performed By: #### L 501.080 ####[facility] [address] [place], [address] FINGERSTICK GLU 240 mg/dL High 74-106 [facility] Comment on above: Result Comment: BRISA GEMENT OF PATIENT CARE PER NURSING PROTOCOL Performed By: #### L 501.080 ####[facility] [address] [place], [address] FINGERSTICK GLU 221 mg/dL High 74-106 [facility] Comment on above: Result Comment: BRISA GEMENT OF PATIENT CARE PER NURSING PROTOCOL Performed By: #### L 501.080 ####[facility] [address] [place], [address] FINGERSTICK GLU 167 mg/dL High 74-106 [facility] Comment on above: Result Comment: BRISA GEMENT OF PATIENT CARE PER NURSING PROTOCOL Performed By: #### L 501.080 ####[facility] [address] [place], [address] FINGERSTICK GLU 173 mg/dL High 74-106 [facility] Comment on above: Result Comment: BRISA GEMENT OF PATIENT CARE PER NURSING PROTOCOL Performed By: #### L 501.080 ####[facility] [address] [place], [address] CBC W/Diff, Automatedon 06-08 07-2024 Absolute Lymph 1.06 X10 3/uL Normal 0.83-4.51 [facility] Comment on above: Performed By: #### L 100.0100, L500.4050 ####[facility] [address] [place], [address] Absolute Neut 5.3 X10 3/uL Normal 2.0-7.7 [facility] Comment on above: Performed By: #### L 100.0100, L500.4050 ####[facility] [address] [place], [address] Basophils/100 WBC (Bld) 0.5 % Normal 0-1 [facility] Comment on above: Performed By: #### L 100.0100, L500.4050 ####[facility] [address] [place], [address] Eosinophils/100 WBC (Bld) 6.1 % High 0-5 [facility] Comment on above: Performed By: #### L 100.0100, L500.4050 ####[facility] [address] [place], [address] Erythrocyte distribution width (RBC) [Ratio] 18.6 % High 11.6-14.6 [facility] Comment on above: Performed By: #### L 100.0100, L500.4050 ####[facility] [address] [place], [address] Hematocrit (Bld) [Volume fraction] 23.2 % Low 40-54 [facility] Comment on above: Performed By: #### L 100.0100, L500.4050 ####[facility] [address] [place], [address] Hemoglobin (Bld) [Mass/Vol] 7.9 g/dL Low 13.0-16.5 [facility] Comment on above: Performed By: #### L 100.0100, L500.4050 ####[facility] [address] [place], [address] IG% 1.000 High 0.0-0.9 [facility] Comment on above: Result Comment: IG% - Immature Granulocytes (promyelocytes, myelocytes andmetamyelocytes) > 1% indicates that a LEFT SHIFT is Present. Performed By: #### L 100.0100, L500.4050 ####[facility] [address] [place], [address] Lymphocytes/100 WBC (Bld) 13.2 % Low 19-41 [facility] Comment on above: Performed By: #### L 100.0100, L500.4050 ####[facility] [address] [place], [address] MCH (RBC) [Entitic mass] 29.8 pg Normal 27.0-32.0 [facility] Comment on above: Performed By: #### L 100.0100, L500.4050 ####[facility] [address] [place], [address] MCHC (RBC) [Mass/Vol] 34.1 g/dL Normal 32-36 [facility] Comment on above: Performed By: #### L 100.0100, L500.4050 ####[facility] [address] [place], [address] MCV (RBC) [Entitic vol] 87.5 fL Normal 80-94 [facility] Comment on above: Performed By: #### L 100.0100, L500.4050 ####[facility] [address] [place], [address] Monocytes/100 WBC (Bld) 13.6 % High 0-10 [facility] Comment on above: Performed By: #### L 100.0100, L500.4050 ####[facility] [address] [place], [address] Neutrophils/100 WBC (Bld) 65.6 % Normal 47-70 [facility] Comment on above: Performed By: #### L 100.0100, L500.4050 ####[facility] [address] [place], [address] Nucleated RBC (Bld) [#/Vol] 0 10*3/uL Normal 0-5 [facility] Comment on above: Performed By: #### L 100.0100, L500.4050 ####[facility] [address] [place], [address] Platelet mean volume (Bld) [Entitic vol] 11.0 fL Normal 6.2-12.0 [facility] Comment on above: Performed By: #### L 100.0100, L500.4050 ####[facility] [address] [place], [address] Platelets (Bld) [#/Vol] 118 10*3/uL Low 150-450 [facility] Comment on above: Performed By: #### L 100.0100, L500.4050 ####[facility] [address] [place], [address] RBC (Bld) [#/Vol] 2.65 10*6/uL Low 4.6-6.2 [facility] Comment on above: Performed By: #### L 100.0100, L500.4050 ####[facility] [address] [place], [address] RDW SD 58.1 fl High 35.1-43.9 [facility] Comment on above: Performed By: #### L 100.0100, L500.4050 ####[facility] [address] [place], [address] WBC (Bld) [#/Vol] 8.0 10*3/uL Normal 4.4-11.0 [facility] Comment on above: Performed By: #### L 100.0100, L500.4050 ####[facility] [address] [place], [address] Comprehensive Metabolic Prof [facility] 01-15-2025 Albumin/Globulin [Mass ratio] 0.8 {ratio} Low 0.9-2.4 [facility] Comment on above: Performed By: #### L 100.0100, L500.4050 ####[facility] [address] [place], [address] ALK PHOS 275 U/L High 40-129 [facility] Comment on above: Performed By: #### L 100.0100, L500.4050 ####[facility] [address] [place], [address] ALT [Catalytic activity/Vol] 56 U/L High <=46 [facility] Comment on above: Performed By: #### L 100.0100, L500.4050 ####[facility] [address] [place], [address] AST [Catalytic activity/Vol] 64 U/L High <=37 [facility] Comment on above: Performed By: #### L 100.0100, L500.4050 ####[facility] [address] [place], [address] Bilirubin [Mass/Vol] 2.06 mg/dL High 0.00-1.30 [facility] Comment on above: Performed By: #### L 100.0100, L500.4050 ####[facility] [address] [place], [address] Calcium [Mass/Vol] 7.8 mg/dL Normal 7.6-11.0 [facility] Comment on above: Performed By: #### L 100.0100, L500.4050 ####[facility] [address] [place], [address] Chloride [Moles/Vol] 94 mmol/L Low 98-108 [facility] Comment on above: Performed By: #### L 100.0100, L500.4050 ####[facility] [address] [place], [address] CO2 [Moles/Vol] 26.7 mmol/L Normal 21.0-32.0 [facility] Comment on above: Performed By: #### L 100.0100, L500.4050 ####[facility] [address] [place], [address] GAP 9 Normal 5-15 [facility] Comment on above: Performed By: #### L 100.0100, L500.4050 ####[facility] [address] [place], [address] Potassium [Moles/Vol] 3.2 mmol/L Low 3.3-5.1 [facility] [place] Comment on above: Performed By: #### L 100.0100, L500.4050 ####[facility] [address] [place], [address] Sodium [Moles/Vol] 130 mmol/L Low 133-145 [facility] Comment on above: Performed By: #### L 100.0100, L500.4050 ####[facility] [address] [place], [address] Albumin [Mass/Vol] 2.2 g/dL Low 3.5-5.0 [facility] Comment on above: Performed By: #### L 100.0100, L500.4050 ####[facility] [address] [place], [address] BUN/CRE 6.0 RATIO Low 10-20 [facility] Comment on above: Performed By: #### L 100.0100, L500.4050 ####[facility] [address] [place], [address] Creatinine [Mass/Vol] 0.82 mg/dL Normal 0.70-1.20 [facility] [place] Comment on above: Performed By: #### L 100.0100, L500.4050 ####[facility] [address] [place], [address] ECRCL 115.58 ml/min Normal 50-250 [facility] Comment on above: Performed By: #### L 100.0100, L500.4050 ####[facility] [address] [place], [address] GFR/1.73 sq M.predicted among non-blacks MDRD (S/P/Bld) [Vol rate/Area] 102 mL/min/{1.73_m2} Normal >60 [facility] Comment on above: Result Comment: mL/m in/1.73m2 CKD-EPI Creatinine Equation (2020) Performed By: #### L 100.0100, L500.4050 ####[facility] [address] [place], [address] Globulin (S) [Mass/Vol] 2.7 g/dL Normal 2.2-4.2 [facility] Comment on above: Performed By: #### L 100.0100, L500.4050 ####[facility] [address] [place], [address] Glucose [Mass/Vol] 178 mg/dL High 70-99 [facility] Comment on above: Performed By: #### L 100.0100, L500.4050 ####[facility] [address] [place], [address] T PROT 4.9 g/dL Low 5.9-8.4 [facility] Comment on above: Performed By: #### L 100.0100, L500.4050 ####[facility] [address] [place], [address] Urea nitrogen [Mass/Vol] 5 mg/dL Normal 4-19 [facility] Comment on above: Performed By: #### L 100.0100, L500.4050 ####[facility] [address] [place], [address] Vancomycin, Random Levelon 0 - VANCO, RANDOM 20.7 ug/mL High 0.0-15.0 [facility] Comment on above: Result Comment: VANC OMYCIN STANDARD DRUG THERAPY: CRITICAL VALUE IS > 15.0 mg/LVANCOMYCIN HIGH INTENSITY THERAPY: CRITICAL VALUE IS > 20.0 mg/LPLEASE CONTACT PHARMACY SERVICES (#6241) FOR INTERPRETATIONOF RESULTS. THIS RESULT DOES NOT REPRESENT A PEAK OR TROUGHLEVEL FOR THIS DRUG. Performed By: #### L 501.8891 ####[facility] [address] [place], [address] Bedside Glucoseon 01-14-2025 FINGERSTICK GLU 194 mg/dL High 74-106 [facility] Comment on above: Result Comment: BRISA GEMENT OF PATIENT CARE PER NURSING PROTOCOL Performed By: #### L 501.080 ####[facility] [address] [place], [address] FINGERSTICK GLU 261 mg/dL High 74-106 [facility] Comment on above: Result Comment: BRISA GEMENT OF PATIENT CARE PER NURSING PROTOCOL Performed By: #### L 501.080 ####[facility] [address] [place], [address] FINGERSTICK GLU 263 mg/dL High 74-106 [facility] Comment on above: Result Comment: BRISA GEMENT OF PATIENT CARE PER NURSING PROTOCOL Performed By: #### L 501.080 ####[facility] [address] [place], [address] CBC W/Diff, Automatedon - Absolute Lymph 1.09 X10 3/uL Normal 0.83-4.51 [facility] Comment on above: Performed By: #### L 100.0100, L500.4050 ####[facility] [address] [place], [address] Absolute Neut 5.3 X10 3/uL Normal 2.0-7.7 [facility] Comment on above: Performed By: #### L 100.0100, L500.4050 ####[facility] [address] [place], [address] Basophils/100 WBC (Bld) 0.4 % Normal 0-1 [facility] Comment on above: Performed By: #### L 100.0100, L500.4050 ####[facility] [address] [place], [address] Eosinophils/100 WBC (Bld) 5.5 % High 0-5 [facility] Comment on above: Performed By: #### L 100.0100, L500.4050 ####[facility] [address] [place], [address] Erythrocyte distribution width (RBC) [Ratio] 18.5 % High 11.6-14.6 [facility] Comment on above: Performed By: #### L 100.0100, L500.4050 ####[facility] [address] [place], [address] Hematocrit (Bld) [Volume fraction] 23.2 % Low 40-54 [facility] Comment on above: Performed By: #### L 100.0100, L500.4050 ####[facility] [address] [place], [address] Hemoglobin (Bld) [Mass/Vol] 7.8 g/dL Low 13.0-16.5 [facility] Comment on above: Performed By: #### L 100.0100, L500.4050 ####[facility] [address] [place], [address] IG% 1.000 High 0.0-0.9 [facility] Comment on above: Result Comment: IG% - Immature Granulocytes (promyelocytes, myelocytes andmetamyelocytes) > 1% indicates that a LEFT SHIFT is Present. Performed By: #### L 100.0100, L500.4050 ####[facility] [address] [place], [address] Lymphocytes/100 WBC (Bld) 13.5 % Low 19-41 [facility] Comment on above: Performed By: #### L 100.0100, L500.4050 ####[facility] [address] [place], [address] MCH (RBC) [Entitic mass] 29.5 pg Normal 27.0-32.0 [facility] Comment on above: Performed By: #### L 100.0100, L500.4050 ####[facility] [address] [place], [address] MCHC (RBC) [Mass/Vol] 33.6 g/dL Normal 32-36 [facility] [place] Comment on above: Performed By: #### L 100.0100, L500.4050 ####[facility] [address] [place], [address] MCV (RBC) [Entitic vol] 87.9 fL Normal 80-94 [facility] Comment on above: Performed By: #### L 100.0100, L500.4050 ####[facility] [address] [place], [address] Monocytes/100 WBC (Bld) 14.3 % High 0-10 [facility] Comment on above: Performed By: #### L 100.0100, L500.4050 ####[facility] [address] [place], [address] Neutrophils/100 WBC (Bld) 65.3 % Normal 47-70 [facility] Comment on above: Performed By: #### L 100.0100, L500.4050 ####[facility] [address] [place], [address] Nucleated RBC (Bld) [#/Vol] 0 10*3/uL Normal 0-5 [facility] Comment on above: Performed By: #### L 100.0100, L500.4050 ####[facility] [address] [place], [address] Platelet mean volume (Bld) [Entitic vol] 11.8 fL Normal 6.2-12.0 [facility] Comment on above: Performed By: #### L 100.0100, L500.4050 ####[facility] [address] [place], [address] Platelets (Bld) [#/Vol] 121 10*3/uL Low 150-450 [facility] Comment on above: Performed By: #### L 100.0100, L500.4050 ####[facility] [address] [place], [address] RBC (Bld) [#/Vol] 2.64 10*6/uL Low 4.6-6.2 [facility] Comment on above: Performed By: #### L 100.0100, L500.4050 ####[facility] [address] [place], [address] RDW SD 58.4 fl High 35.1-43.9 [facility] Comment on above: Performed By: #### L 100.0100, L500.4050 ####[facility] [address] [place], [address] WBC (Bld) [#/Vol] 8.1 10*3/uL Normal 4.4-11.0 [facility] Comment on above: Performed By: #### L 100.0100, L500.4050 ####[facility] [address] [place], [address] Chest without Contraston Chest without Contrast Normal [facility] Comprehensive Metabolic Prof ilon 01-14-2025 Albumin [Mass/Vol] 2.4 g/dL Low 3.5-5.0 [facility] Comment on above: Performed By: #### L 100.0100, L500.4050 ####[facility] [address] [place], [address] Albumin/Globulin [Mass ratio] 0.9 {ratio} Normal 0.9-2.4 [facility] Comment on above: Performed By: #### L 100.0100, L500.4050 ####[facility] [address] [place], [address] ALK PHOS 293 U/L High 40-129 [facility] Comment on above: Performed By: #### L 100.0100, L500.4050 ####[facility] [address] [place], [address] ALT [Catalytic activity/Vol] 61 U/L High <=46 [facility] Comment on above: Performed By: #### L 100.0100, L500.4050 ####[facility] [address] [place], [address] AST [Catalytic activity/Vol] 83 U/L High <=37 [facility] Comment on above: Performed By: #### L 100.0100, L500.4050 ####[facility] [address] [place], [address] Bilirubin [Mass/Vol] 2.64 mg/dL High 0.00-1.30 [facility] Comment on above: Performed By: #### L 100.0100, L500.4050 ####[facility] [address] [place], [address] BUN/CRE 6.4 RATIO Low 10-20 [facility] Comment on above: Performed By: #### L 100.0100, L500.4050 ####[facility] [address] [place], [address] Calcium [Mass/Vol] 7.9 mg/dL Normal 7.6-11.0 [facility] Comment on above: Performed By: #### L 100.0100, L500.4050 ####[facility] [address] [place], [address] Chloride [Moles/Vol] 95 mmol/L Low 98-108 [facility] Comment on above: Performed By: #### L 100.0100, L500.4050 ####[facility] [address] [place], [address] CO2 [Moles/Vol] 25.1 mmol/L Normal 21.0-32.0 [facility] Comment on above: Performed By: #### L 100.0100, L500.4050 ####[facility] [address] [place], [address] Creatinine [Mass/Vol] 0.86 mg/dL Normal 0.70-1.20 [facility] [place] Comment on above: Performed By: #### L 100.0100, L500.4050 ####[facility] [address] [place], [address] ECRCL 110.10 ml/min Normal 50-250 [facility] Comment on above: Performed By: #### L 100.0100, L500.4050 ####[facility] [address] [place], [address] GAP 11 Normal 5-15 [facility] Comment on above: Performed By: #### L 100.0100, L500.4050 ####[facility] [address] [place], [address] GFR/1.73 sq M.predicted among non-blacks MDRD (S/P/Bld) [Vol rate/Area] 100 mL/min/{1.73_m2} Normal >60 [facility] Comment on above: Result Comment: mL/m in/1.73m2 CKD-EPI Creatinine Equation (2020) Performed By: #### L 100.0100, L500.4050 ####[facility] [address] [place], [address] Globulin (S) [Mass/Vol] 2.5 g/dL Normal 2.2-4.2 [facility] Comment on above: Performed By: #### L 100.0100, L500.4050 ####[facility] [address] [place], [address] Glucose [Mass/Vol] 280 mg/dL High 70-99 [facility] Comment on above: Performed By: #### L 100.0100, L500.4050 ####[facility] [address] [place], [address] Potassium [Moles/Vol] 3.0 mmol/L Low 3.3-5.1 [facility] [place] Comment on above: Performed By: #### L 100.0100, L500.4050 ####[facility] [address] [place], [address] Sodium [Moles/Vol] 131 mmol/L Low 133-145 [facility] Comment on above: Performed By: #### L 100.0100, L500.4050 ####[facility] [address] [place], [address] T PROT 4.9 g/dL Low 5.9-8.4 [facility] Comment on above: Performed By: #### L 100.0100, L500.4050 ####[facility] [address] [place], [address] Urea nitrogen [Mass/Vol] 6 mg/dL Normal 4-19 [facility] Comment on above: Performed By: #### L 100.0100, L500.4050 ####[facility] [address] [place], [address] Culture, Blood (WB)on 2024 CUB Blood cultures x2, f rom two different sites No growth in [address] [facility] Comment on above: Performed By: #### M 200.1000 ####[facility] [address] [place], [address] Magnetic resonance imaging r eportOrdered By: Kenneth Barton on 01-14-[address] [facility] Work Phone: PSA,Total- Diagnosticon 01-02 PSA, DIAGNOSTIC 0.65 ng/mL Normal 0.00-4.00 [facility] Comment on above: Result Comment: This test was performed using the [employer] tPSAmethod. Measured values of a patient??sample can varydepending on the testing procedure used. PSA valuesdetermined on patient samples by different testingprocedures cannot be used interchangeably. If there is achange in PSA assays while monitoring therapy, sequentialtesting should be performed to confirm baseline values. Performed By: #### L 501.9940 ####[facility] [address] [place], [place], [address] Trough vancomycin levelOrder ed By: Cielo Tovar on 01-14-2025 Vancomycin trough [Mass/Vol] 21.4 ug/mL High 5.0-15.0 [facility] Vancomycin, Trough Levelon 0 01-14-2025 VANCO, TROUGH 21.4 ug/mL High 5.0-15.0 [facility] Comment on above: Order Comment: 1830 Result [...] therapy recommended for serious lifethreatening infections include:- Gericvsbqw-Ohwujgjseyvi-Ifutxubgn (Ventilator/Healtcare Associated)-SepsisPLEASE CONTACT PHARMACY SERVICES (#4611) FOR INTERPRETATIONOF RESULTS. Performed By: #### L 501.8820 ####[facility] [address] [place], [address] BRCon 01-13-[address] [facility] Comment on above: Result Comment: [id number] ON TRANSFUSED 01/13/25 1613 Performed By: #### B , BTS ####[facility] [address] [place], [address] Bedside Glucoseon 01-13-2025 FINGERSTICK GLU 272 mg/dL High [address] [place] [address] Comment on above: Result Comment: BRISA GEMENT OF PATIENT CARE PER NURSING PROTOCOL Performed By: #### L 501.080 ####[facility] [address] [place], [address] FINGERSTICK GLU 268 mg/dL High [facility]106 [facility] Comment on above: Result Comment: BRISA GEMENT OF PATIENT CARE PER NURSING PROTOCOL Performed By: #### L 501.080 ####[facility] [address] [place], [address] FINGERSTICK GLU 249 mg/dL High [address] [place] [address] Comment on above: Result Comment: BRISA GEMENT OF PATIENT CARE PER NURSING PROTOCOL Performed By: #### L 501.080 ####[facility] [address] [place], [address] FINGERSTICK GLU 201 mg/dL High [address] [place] [address] Comment on above: Result Comment: BRISA GEMENT OF PATIENT CARE PER NURSING PROTOCOL Performed By: #### L 501.080 ####[facility] [address] [place], [address] CBC W/Diff, Automatedon 01-02 Absolute Lymph 1.25 X10 3/uL Normal 0.83-4.51 [facility] Comment on above: Performed By: #### L 100.0100, L500.4050 ####[facility] [address] [place], [address] Absolute Neut 5.7 X10 3/uL Normal 2.0-7.7 [facility] Comment on above: Performed By: #### L 100.0100, L500.4050 ####[facility] [address] [place], [address] Basophils/100 WBC (Bld) 0.3 % Normal 0-1 [facility] Comment on above: Performed By: #### L 100.0100, L500.4050 ####[facility] [address] [place], [address] Eosinophils/100 WBC (Bld) 5.2 % High 0-5 [facility] Comment on above: Performed By: #### L 100.0100, L500.4050 ####[facility] [address] [place], [address] Erythrocyte distribution width (RBC) [Ratio] 18.6 % High 11.6-14.6 [facility] Comment on above: Performed By: #### L 100.0100, L500.4050 ####[facility] [address] [place], [address] Hematocrit (Bld) [Volume fraction] 21.0 % Low 40-54 [facility] Comment on above: Performed By: #### L 100.0100, L500.4050 ####[facility] [address] [place], [address] Hemoglobin (Bld) [Mass/Vol] 7.2 g/dL Low 13.0-16.5 [facility] Comment on above: Performed By: #### L 100.0100, L500.4050 ####[facility] [address] [place], [address] IG% 0.800 Normal 0.0-0.9 [facility] Comment on above: Result Comment: IG% - Immature Granulocytes (promyelocytes, myelocytes andmetamyelocytes) > 1% indicates that a LEFT SHIFT is Present. Performed By: #### L 100.0100, L500.4050 ####[facility] [address] [place], [address] Lymphocytes/100 WBC (Bld) 14.4 % Low 19-41 [facility] Comment on above: Performed By: #### L 100.0100, L500.4050 ####[facility] [address] [place], [address] MCH (RBC) [Entitic mass] 30.3 pg Normal 27.0-32.0 [facility] Comment on above: Performed By: #### L 100.0100, L500.4050 ####[facility] [address] [place], [address] MCHC (RBC) [Mass/Vol] 34.3 g/dL Normal 32-36 [facility] [place] Comment on above: Performed By: #### L 100.0100, L500.4050 ####[facility] [address] [place], [address] MCV (RBC) [Entitic vol] 88.2 fL Normal 80-94 [facility] Comment on above: Performed By: #### L 100.0100, L500.4050 ####[facility] [address] [place], [address] Monocytes/100 WBC (Bld) 13.7 % High 0-10 [facility] Comment on above: Performed By: #### L 100.0100, L500.4050 ####[facility] [address] [place], [address] Neutrophils/100 WBC (Bld) 65.6 % Normal 47-70 [facility] Comment on above: Performed By: #### L 100.0100, L500.4050 ####[facility] [address] [place], [address] Nucleated RBC (Bld) [#/Vol] 0 10*3/uL Normal 0-5 [facility] Comment on above: Performed By: #### L 100.0100, L500.4050 ####[facility] [address] [place], [address] Platelet mean volume (Bld) [Entitic vol] 11.3 fL Normal 6.2-12.0 [facility] Comment on above: Performed By: #### L 100.0100, L500.4050 ####[facility] [address] [place], [address] Platelets (Bld) [#/Vol] 124 10*3/uL Low 150-450 [facility] Comment on above: Performed By: #### L 100.0100, L500.4050 ####[facility] [address] [place], [address] RBC (Bld) [#/Vol] 2.38 10*6/uL Low 4.6-6.2 [facility] Comment on above: Performed By: #### L 100.0100, L500.4050 ####[facility] [address] [place], [address] RDW SD 59.2 fl High 35.1-43.9 [facility] Comment on above: Performed By: #### L 100.0100, L500.4050 ####[facility] [address] [place], [address] WBC (Bld) [#/Vol] 8.7 10*3/uL Normal 4.4-11.0 [facility] Comment on above: Performed By: #### L 100.0100, L500.4050 ####[facility] [address] [place], [address] Comprehensive Metabolic Prof ilon 01-13-2025 Albumin [Mass/Vol] 2.3 g/dL Low 3.5-5.0 [facility] Comment on above: Performed By: #### L 100.0100, L500.4050 ####[facility] [address] [place], [address] Albumin/Globulin [Mass ratio] 0.9 {ratio} Normal 0.9-2.4 [facility] Comment on above: Performed By: #### L 100.0100, L500.4050 ####[facility] [address] [place], [address] ALK PHOS 306 U/L High 40-129 [facility] Comment on above: Performed By: #### L 100.0100, L500.4050 ####[facility] [address] [place], [address] ALT [Catalytic activity/Vol] 72 U/L High <=46 [facility] Comment on above: Performed By: #### L 100.0100, L500.4050 ####[facility] [address] [place], [address] AST [Catalytic activity/Vol] 107 U/L High <=37 [facility] Comment on above: Performed By: #### L 100.0100, L500.4050 ####[facility] [address] [place], [address] Bilirubin [Mass/Vol] 1.69 mg/dL High 0.00-1.30 [facility] Comment on above: Performed By: #### L 100.0100, L500.4050 ####[facility] [address] [place], [address] BUN/CRE 7.3 RATIO Low 10-20 [facility] Comment on above: Performed By: #### L 100.0100, L500.4050 ####[facility] [address] [place], [address] Calcium [Mass/Vol] 7.7 mg/dL Normal 7.6-11.0 [facility] Comment on above: Performed By: #### L 100.0100, L500.4050 ####[facility] [address] [place], [address] Chloride [Moles/Vol] 96 mmol/L Low 98-108 [facility] Comment on above: Performed By: #### L 100.0100, L500.4050 ####[facility] [address] [place], [address] CO2 [Moles/Vol] 25.5 mmol/L Normal 21.0-32.0 [facility] Comment on above: Performed By: #### L 100.0100, L500.4050 ####[facility] [address] [place], [address] Creatinine [Mass/Vol] 0.90 mg/dL Normal 0.70-1.20 [facility] [place] Comment on above: Performed By: #### L 100.0100, L500.4050 ####[facility] [address] [place], [address] ECRCL 103.13 ml/min Normal 50-250 [facility] Comment on above: Performed By: #### L 100.0100, L500.4050 ####[facility] [address] [place], [address] GAP 10 Normal 5-15 [facility] Comment on above: Performed By: #### L 100.0100, L500.4050 ####[facility] [address] [place], [address] GFR/1.73 sq M.predicted among non-blacks MDRD (S/P/Bld) [Vol rate/Area] 99 mL/min/{1.73_m2} Normal >60 [facility] Comment on above: Result Comment: mL/m in/1.73m2 CKD-EPI Creatinine Equation (2020) Performed By: #### L 100.0100, L500.4050 ####[facility] [address] [place], [address] Globulin (S) [Mass/Vol] 2.6 g/dL Normal 2.2-4.2 [facility] Comment on above: Performed By: #### L 100.0100, L500.4050 ####[facility] [address] [place], [address] Glucose [Mass/Vol] 187 mg/dL High 70-99 [facility] Comment on above: Performed By: #### L 100.0100, L500.4050 ####[facility] [address] [place], [address] Potassium [Moles/Vol] 3.1 mmol/L Low 3.3-5.1 [facility] [place] Comment on above: Performed By: #### L 100.0100, L500.4050 ####[facility] [address] [place], [address] Sodium [Moles/Vol] 132 mmol/L Low 133-145 [facility] Comment on above: Performed By: #### L 100.0100, L500.4050 ####[facility] [address] [place], [address] T PROT 4.9 g/dL Low 5.9-8.4 [facility] Comment on above: Performed By: #### L 100.0100, [id number] ####[facility] [address] [place], [address] Urea nitrogen [Mass/Vol] 7 mg/dL Normal 4-19 [facility] Comment on above: Performed By: #### L 100.0100, [id number] ####[facility] [address] [place], [address] Ferritinon 01-13-2025 Ferritin [Mass/Vol] 76 ng/mL Normal 37-417 [facility] Comment on above: Performed By: #### L 503.6505, L503.6030 ####[facility] [address] [place], [place], [id number] Iron measurement (mass/mass) Ordered By: Cielo Tovar on 01-13-2025 Iron (Unsp spec) [Mass/Mass] 110 ug/dL 65-175 [facility] Iron+Iron Binding Capacityon 01-13-2025 TIBC 211 ug/dL Low 250-450 [facility] Comment on above: Performed By: #### L 503.6550, L503.6030 ####[facility] [address] [place], [place], [id number] Magnetic resonance imaging r eportOrdered By: Jerry Osorio on 01-13-[address] [facility] No Panel InformationOrdered By: Cielo Tovar on 01-13-2025 101 ug/dL Low 228-428 [facility] Serum or plasma ferritin wei surement (mass/volume)Ordered By: Cielo Tovar on 01-13-2025 Ferritin [Mass/Vol] 76 ng/mL 37-417 [facility] Serum or plasma iron saturat ion measurement (mass fraction)Ordered By: Cielo Tovar on 01-13-2025 Iron saturation [Mass fraction] 52.1 % 9-55 [facility] Spine Lumbar (Routine)on Spine Lumbar (Routine) Normal [facility] Spine Thoracic (Routine)on 0 01-13-2025 Spine Thoracic (Routine) Normal [facility] Type AND Screenon 01-13-2025 ABO and Rh group Nom (Bld) Blood group O Rh(D) positive Normal [facility] Comment on above: Order Comment: CMV N EG? NNumber of units to transfuse: 1Reason for Ordering Blood: AcuteAre the blood/blood products to be transfused? YIs the patient having/had surgery? NNWhen ReadyNYA Performed By: #### B RC, BTS ####[facility] [address] [place], [place], [id number] Vancomycin, Trough Levelon 0 01-13-2025 VANCO, TROUGH 19.8 ug/mL High 5.0-15.0 [facility] Comment on above: Order Comment: Comme nts: Trough to be drawn 30 mins prior to scheduled [id number] Result Comment: Eleazar mmended goal trough ranges [...] therapy recommended for serious lifethreatening infections include:- Bomgqvnhxo-Ukexkrtcdlbn-Xwxczxufo (Ventilator/Healtcare Associated)-SepsisPLEASE CONTACT PHARMACY SERVICES (#9803) FOR INTERPRETATIONOF RESULTS. Performed By: #### L 501.8820 ####[facility] [address] [place] [address] Bedside Glucoseon 01-12-2025 FINGERSTICK GLU 241 mg/dL High [address] [place] [address] Comment on above: Result Comment: BRISA GEMENT OF PATIENT CARE PER NURSING PROTOCOL Performed By: #### L 501.080 ####[facility] [address] [facility] [address] FINGERSTICK GLU 316 mg/dL High [address] [place] [address] Comment on above: Result Comment: BRISA GEMENT OF PATIENT CARE PER NURSING PROTOCOL Performed By: #### L 501.080 ####[facility] [address] [facility] [address] FINGERSTICK GLU 224 mg/dL High [address] [place] [address] Comment on above: Result Comment: BRISA GEMENT OF PATIENT CARE PER NURSING PROTOCOL Performed By: #### L 501.080 ####[facility] [address] [facility] [address] FINGERSTICK GLU 214 mg/dL High [address] [place] [address] Comment on above: Result Comment: BRISA GEMENT OF PATIENT CARE PER NURSING PROTOCOL Performed By: #### L 501.080 ####[facility] [address] [place], [address] CBC W/Diff, Automatedon -08 04-2024 Absolute Lymph 0.99 X10 3/uL Normal 0.83-4.51 [facility] Comment on above: Performed By: #### L 100.0100, L500.4050 ####[facility] [address] [place], [address] Absolute Neut 5.9 X10 3/uL Normal 2.0-7.7 [facility] Comment on above: Performed By: #### L 100.0100, L500.4050 ####[facility] [address] [place], [address] Basophils/100 WBC (Bld) 0.5 % Normal 0-1 [facility] Comment on above: Performed By: #### L 100.0100, L500.4050 ####[facility] [address] [place], [address] Eosinophils/100 WBC (Bld) 6.5 % High 0-5 [facility] Comment on above: Performed By: #### L 100.0100, L500.4050 ####[facility] [address] [place], [address] Erythrocyte distribution width (RBC) [Ratio] 18.4 % High 11.6-14.6 [facility] Comment on above: Performed By: #### L 100.0100, L500.4050 ####[facility] [address] [place], [address] Hematocrit (Bld) [Volume fraction] 21.8 % Low 40-54 [facility] Comment on above: Performed By: #### L 100.0100, L500.4050 ####[facility] [address] [place], [address] Hemoglobin (Bld) [Mass/Vol] 7.4 g/dL Low 13.0-16.5 [facility] Comment on above: Performed By: #### L 100.0100, L500.4050 ####[facility] [address] [place], [address] IG% 1.100 High 0.0-0.9 [facility] Comment on above: Result Comment: IG% - Immature Granulocytes (promyelocytes, myelocytes andmetamyelocytes) > 1% indicates that a LEFT SHIFT is Present. Performed By: #### L 100.0100, L500.4050 ####[facility] [address] [place], [address] Lymphocytes/100 WBC (Bld) 11.6 % Low 19-41 [facility] Comment on above: Performed By: #### L 100.0100, L500.4050 ####[facility] [address] [place], [address] MCH (RBC) [Entitic mass] 29.5 pg Normal 27.0-32.0 [facility] Comment on above: Performed By: #### L 100.0100, L500.4050 ####[facility] [address] [place], [address] MCHC (RBC) [Mass/Vol] 33.9 g/dL Normal 32-36 [facility] Comment on above: Performed By: #### L 100.0100, L500.4050 ####[facility] [address] [place], [address] MCV (RBC) [Entitic vol] 86.9 fL Normal 80-94 [facility] Comment on above: Performed By: #### L 100.0100, L500.4050 ####[facility] [address] [place], [address] Monocytes/100 WBC (Bld) 12.1 % High 0-10 [facility] Comment on above: Performed By: #### L 100.0100, L500.4050 ####[facility] [address] [place], [address] Neutrophils/100 WBC (Bld) 68.2 % Normal 47-70 [facility] Comment on above: Performed By: #### L 100.0100, L500.4050 ####[facility] [address] [place], [address] Nucleated RBC (Bld) [#/Vol] 0 10*3/uL Normal 0-5 [facility] Comment on above: Performed By: #### L 100.0100, L500.4050 ####[facility] [address] [place], [address] Platelet mean volume (Bld) [Entitic vol] 11.7 fL Normal 6.2-12.0 [facility] Comment on above: Performed By: #### L 100.0100, L500.4050 ####[facility] [address] [place], [address] Platelets (Bld) [#/Vol] 127 10*3/uL Low 150-450 [facility] Comment on above: Performed By: #### L 100.0100, L500.4050 ####[facility] [address] [place], [address] RBC (Bld) [#/Vol] 2.51 10*6/uL Low 4.6-6.2 [facility] Comment on above: Performed By: #### L 100.0100, L500.4050 ####[facility] [address] [place], [address] RDW SD 57.6 fl High 35.1-43.9 [facility] Comment on above: Performed By: #### L 100.0100, L500.4050 ####[facility] [address] [place], [address] WBC (Bld) [#/Vol] 8.6 10*3/uL Normal 4.4-11.0 [facility] Comment on above: Performed By: #### L 100.0100, L500.4050 ####[facility] [address] [place], [address] Comprehensive Metabolic Prof ilon 01-12-2025 Albumin [Mass/Vol] 2.4 g/dL Low 3.5-5.0 [facility] Comment on above: Performed By: #### L 100.0100, L500.4050 ####[facility] [address] [place], [address] Albumin/Globulin [Mass ratio] 0.9 {ratio} Normal 0.9-2.4 [facility] Comment on above: Performed By: #### L 100.0100, L500.4050 ####[facility] [address] [place], [address] ALK PHOS 332 U/L High 40-129 [facility] Comment on above: Performed By: #### L 100.0100, L500.4050 ####[facility] [address] [place], [address] ALT [Catalytic activity/Vol] 82 U/L High <=46 [facility] Comment on above: Performed By: #### L 100.0100, L500.4050 ####[facility] [address] [place], [address] AST [Catalytic activity/Vol] 148 U/L High <=37 [facility] Comment on above: Performed By: #### L 100.0100, L500.4050 ####[facility] [address] [place], [address] Bilirubin [Mass/Vol] 1.95 mg/dL High 0.00-1.30 [facility] Comment on above: Performed By: #### L 100.0100, L500.4050 ####[facility] [address] [place], [address] BUN/CRE 10.5 RATIO Normal 10-20 [facility] Comment on above: Performed By: #### L 100.0100, L500.4050 ####[facility] [address] [place], [address] Calcium [Mass/Vol] 7.6 mg/dL Normal 7.6-11.0 [facility] Comment on above: Performed By: #### L 100.0100, L500.4050 ####[facility] [address] [place], [address] Chloride [Moles/Vol] 97 mmol/L Low 98-108 [facility] Comment on above: Performed By: #### L 100.0100, L500.4050 ####[facility] [address] [place], [address] CO2 [Moles/Vol] 24.4 mmol/L Normal 21.0-32.0 [facility] Comment on above: Performed By: #### L 100.0100, L500.4050 ####[facility] [address] [place], [address] Creatinine [Mass/Vol] 0.93 mg/dL Normal 0.70-1.20 [facility] Comment on above: Performed By: #### L 100.0100, L500.4050 ####[facility] [address] [place], [address] ECRCL 99.17 ml/min Normal 50-250 [facility] Comment on above: Performed By: #### L 100.0100, L500.4050 ####[facility] [address] [place], [address] GAP 9 Normal 5-15 [facility] Comment on above: Performed By: #### L 100.0100, L500.4050 ####[facility] [address] [place], [address] GFR/1.73 sq M.predicted among non-blacks MDRD (S/P/Bld) [Vol rate/Area] 95 mL/min/{1.73_m2} Normal >60 [facility] Comment on above: Result Comment: mL/m in/1.73m2 CKD-EPI Creatinine Equation (2020) Performed By: #### L 100.0100, L500.4050 ####[facility] [address] [place], [address] Globulin (S) [Mass/Vol] 2.7 g/dL Normal 2.2-4.2 [facility] Comment on above: Performed By: #### L 100.0100, L500.4050 ####[facility] [address] [place], [address] Glucose [Mass/Vol] 241 mg/dL High 70-99 [facility] Comment on above: Performed By: #### L 100.0100, L500.4050 ####[facility] [address] [place], [address] Potassium [Moles/Vol] 3.1 mmol/L Low 3.3-5.1 [facility] Comment on above: Performed By: #### L 100.0100, L500.4050 ####[facility] [address] [place], [address] Sodium [Moles/Vol] 130 mmol/L Low 133-145 [facility] Comment on above: Performed By: #### L 100.0100, L500.4050 ####[facility] [address] [place], [address] T PROT 5.0 g/dL Low 5.9-8.4 [facility] Comment on above: Performed By: #### L 100.0100, L500.4050 ####[facility] [address] [place], [address] Urea nitrogen [Mass/Vol] 10 mg/dL Normal 4-19 [facility] Comment on above: Performed By: #### L 100.0100, L500.4050 ####[facility] [address] [place], [address] Urine Cultureon 01-12-2025 URC Urine Culture Urine Culture Yeast, not Mary albicans [place] Count 25,000-50,[address] [facility] Comment on above: Performed By: #### M 100.2200 ####[facility] [address] [place], [address] Bedside Glucoseon 01-11-2025 FINGERSTICK GLU 258 mg/dL High 74-106 [facility] Comment on above: Result Comment: BRISA GEMENT OF PATIENT CARE PER NURSING PROTOCOL Performed By: #### L 501.080 ####[facility] [address] [place], [address] FINGERSTICK GLU 298 mg/dL High 74-106 [facility] Comment on above: Result Comment: BRISA GEMENT OF PATIENT CARE PER NURSING PROTOCOL Performed By: #### L 501.080 ####[facility] [address] [place], [address] FINGERSTICK GLU 268 mg/dL High 74-106 [facility] Comment on above: Result Comment: BRISA GEMENT OF PATIENT CARE PER NURSING PROTOCOL Performed By: #### L 501.080 ####[facility] [address] [place], [address] FINGERSTICK GLU 251 mg/dL High 74-106 [facility] Comment on above: Result Comment: BRISA GEMENT OF PATIENT CARE PER NURSING PROTOCOL Performed By: #### L 501.080 ####[facility] [address] [place], [address] CBC W/Diff, Automatedon 06- 0-2025 Absolute Lymph 1.01 X10 3/uL Normal 0.83-4.51 [facility] Comment on above: Performed By: #### L 100.0100 ####[facility] [address] [place], [address] Absolute Neut 5.6 X10 3/uL Normal 2.0-7.7 [facility] Comment on above: Performed By: #### L 100.0100 ####[facility] [address] [place], [address] Basophils/100 WBC (Bld) 0.5 % Normal 0-1 [facility] Comment on above: Performed By: #### L 100.0100 ####[facility] [address] [place], [address] Eosinophils/100 WBC (Bld) 4.6 % Normal 0-5 [facility] Comment on above: Performed By: #### L 100.0100 ####[facility] [address] [place], [address] Erythrocyte distribution width (RBC) [Ratio] 18.6 % High 11.6-14.6 [facility] Comment on above: Performed By: #### L 100.0100 ####[facility] [address] [place], [address] Hematocrit (Bld) [Volume fraction] 21.8 % Low 40-54 [facility] Comment on above: Performed By: #### L 100.0100 ####[facility] [address] [place], [address] Hemoglobin (Bld) [Mass/Vol] 7.4 g/dL Low 13.0-16.5 [facility] Comment on above: Performed By: #### L 100.0100 ####[facility] [address] [place], [address] IG% 0.900 Normal 0.0-0.9 [facility] Comment on above: Result Comment: IG% - Immature Granulocytes (promyelocytes, myelocytes andmetamyelocytes) > 1% indicates that a LEFT SHIFT is Present. Performed By: #### L 100.0100 ####[facility] [address] [place], [address] Lymphocytes/100 WBC (Bld) 12.6 % Low 19-41 [facility] Comment on above: Performed By: #### L 100.0100 ####[facility] [address] [place], [address] MCH (RBC) [Entitic mass] 29.7 pg Normal 27.0-32.0 [facility] Comment on above: Performed By: #### L 100.0100 ####[facility] [address] [place], [address] MCHC (RBC) [Mass/Vol] 33.9 g/dL Normal 32-36 [facility] Comment on above: Performed By: #### L 100.0100 ####[facility] [address] [place], [address] MCV (RBC) [Entitic vol] 87.6 fL Normal 80-94 [facility] Comment on above: Performed By: #### L 100.0100 ####[facility] [address] [place], [address] Monocytes/100 WBC (Bld) 11.8 % High 0-10 [facility] Comment on above: Performed By: #### L 100.0100 ####[facility] [address] [place], [address] Neutrophils/100 WBC (Bld) 69.6 % Normal 47-70 [facility] Comment on above: Performed By: #### L 100.0100 ####[facility] [address] [place], [address] Nucleated RBC (Bld) [#/Vol] 0 10*3/uL Normal 0-5 [facility] Comment on above: Performed By: #### L 100.0100 ####[facility] [address] [place], [address] Platelet mean volume (Bld) [Entitic vol] 12.1 fL High 6.2-12.0 [facility] Comment on above: Performed By: #### L 100.0100 ####[facility] [address] [place], [address] Platelets (Bld) [#/Vol] 130 10*3/uL Low 150-450 [facility] Comment on above: Performed By: #### L 100.0100 ####[facility] [address] [place], [address] RBC (Bld) [#/Vol] 2.49 10*6/uL Low 4.6-6.2 [facility] Comment on above: Performed By: #### L 100.0100 ####[facility] [address] [place], [address] RDW SD 56.7 fl High 35.1-43.9 [facility] Comment on above: Performed By: #### L 100.0100 ####[facility] [address] [place], [address] WBC (Bld) [#/Vol] 8.0 10*3/uL Normal 4.4-11.0 [facility] Comment on above: Performed By: #### L 100.0100 ####[facility] [address] [place], [address] Absolute Neut Normal 2.0-7.7 [facility] Comment on above: Result Comment: This specimen has been REJECTED due to Laboratory criteria:Clotted.DSCOTT has been notified of need of recollection.01/11/25555 Vitaliy Lillie Performed By: #### L 100.0100, L500.4050 ####[facility] [address] [place], [address] HCT Normal 40-54 [facility] Comment on above: Result Comment: This specimen has been REJECTED due to Laboratory criteria:Clotted.DSCOTT has been notified of need of recollection.01/11/25555 Vitaliy [place] Performed By: #### L 100.0100, L500.4050 ####[facility] [address] [place], [address] HGB Normal 13.0-16.5 [facility] Comment on above: Result Comment: This specimen has been REJECTED due to Laboratory criteria:Clotted.DSCOTT has been notified of need of recollection.01/11/25555 Vitaliy Lillie Performed By: #### L 100.0100, L500.4050 ####[facility] [address] [place], [address] MCH Normal 27.0-32.0 [facility] Comment on above: Result Comment: This specimen has been REJECTED due to Laboratory criteria:Clotted.DSCOTT has been notified of need of recollection.01/11/25555 Vitaliy [place] Performed By: #### L 100.0100, L500.4050 ####[facility] [address] [place], [address] MCHC Normal 32-36 [facility] Comment on above: Result Comment: This specimen has been REJECTED due to Laboratory criteria:Clotted.DSCOTT has been notified of need of recollection.01/11/25555 Vitaliy [place] Performed By: #### L 100.0100, L500.4050 ####[facility] [address] [place], [address] MCV Normal 80-94 [facility] Comment on above: Result Comment: This specimen has been REJECTED due to Laboratory criteria:Clotted.DSCOTT has been notified of need of recollection.01/11/25555 Vitaliy Lillie Performed By: #### L 100.0100, L500.4050 ####[facility] [address] [place], [address] NEUT% Normal 47-70 [facility] Comment on above: Result Comment: This specimen has been REJECTED due to Laboratory criteria:Clotted.DSCOTT has been notified of need of recollection.01/11/25555 Vitaliy [place] Performed By: #### L 100.0100, L500.4050 ####[facility] [address] [place], [address] PLT Normal 150-450 [facility] Comment on above: Result Comment: This specimen has been REJECTED due to Laboratory criteria:Clotted.DSCOTT has been notified of need of recollection.01/11/25555 Vitaliy [place] Performed By: #### L 100.0100, L500.4050 ####[facility] [address] [place], [address] RBC Normal 4.6-6.2 [facility] Comment on above: Result Comment: This specimen has been REJECTED due to Laboratory criteria:Clotted.DSCOTT has been notified of need of recollection.01/11/25555 Vitaliy Lillie Performed By: #### L 100.0100, L500.4050 ####[facility] [address] [place], [address] RDW CV Normal 11.6-14.6 [facility] Comment on above: Result Comment: This specimen has been REJECTED due to Laboratory criteria:Clotted.DSCOTT has been notified of need of recollection.01/11/25555 Vitaliy Lillie Performed By: #### L 100.0100, L500.4050 ####[facility] [address] [place], [address] RDW SD Normal 35.1-43.9 [facility] Comment on above: Result Comment: This specimen has been REJECTED due to Laboratory criteria:Clotted.DSCOTT has been notified of need of recollection.01/11/2556 Vitaliy Lillie Performed By: #### L 100.0100, L500.4050 ####[facility] [address] [place], [address] WBC Normal 4.4-11.0 [facility] Comment on above: Result Comment: This specimen has been REJECTED due to Laboratory criteria:Clotted.DSCOTT has been notified of need of recollection.01/11/2556 Vitaliy Lillie Performed By: #### L 100.0100, L500.4050 ####[facility] [address] [place], [address] Comprehensive Metabolic Prof [facility] 01-11-2025 Albumin [Mass/Vol] 2.2 g/dL Low 3.5-5.0 [facility] Comment on above: Performed By: #### L 100.0100, L500.4050 ####[facility] [address] [place], [address] Albumin/Globulin [Mass ratio] 0.8 {ratio} Low 0.9-2.4 [facility] Comment on above: Performed By: #### L 100.0100, L500.4050 ####[facility] [address] [place], [address] ALK PHOS 314 U/L High 40-129 [facility] Comment on above: Performed By: #### L 100.0100, L500.4050 ####[facility] [address] [place], [address] ALT [Catalytic activity/Vol] 66 U/L High <=46 [facility] Comment on above: Performed By: #### L 100.0100, L500.4050 ####[facility] [address] [place], [address] AST [Catalytic activity/Vol] 137 U/L High <=37 [facility] Comment on above: Result Comment: Hemo lysis present, Results??could be affected.?? Performed By: #### L 100.0100, L500.4050 ####[facility] [address] [place], [address] Bilirubin [Mass/Vol] 2.05 mg/dL High 0.00-1.30 [facility] Comment on above: Performed By: #### L 100.0100, L500.4050 ####[facility] [address] [place], [address] BUN/CRE 13.4 RATIO Normal 10-20 [facility] Comment on above: Performed By: #### L 100.0100, L500.4050 ####[facility] [address] [place], [address] Calcium [Mass/Vol] 7.6 mg/dL Normal 7.6-11.0 [facility] Comment on above: Performed By: #### L 100.0100, L500.4050 ####[facility] [address] [place], [address] Chloride [Moles/Vol] 99 mmol/L Normal 98-108 [facility] Comment on above: Performed By: #### L 100.0100, L500.4050 ####[facility] [address] [place], [address] CO2 [Moles/Vol] 17.3 mmol/L Low 21.0-32.0 [facility] Comment on above: Performed By: #### L 100.0100, L500.4050 ####[facility] [address] [place], [address] Creatinine [Mass/Vol] 1.18 mg/dL Normal 0.70-1.20 [facility] Comment on above: Performed By: #### L 100.0100, L500.4050 ####[facility] [address] [place], [address] ECRCL 78.27 ml/min Normal 50-250 [facility] Comment on above: Performed By: #### L 100.0100, L500.4050 ####[facility] [address] [place], [address] GAP 12 Normal 5-15 [facility] Comment on above: Performed By: #### L 100.0100, L500.4050 ####[facility] [address] [place], [address] GFR/1.73 sq M.predicted among non-blacks MDRD (S/P/Bld) [Vol rate/Area] 72 mL/min/{1.73_m2} Normal >60 [facility] Comment on above: Result Comment: mL/m in/1.73m2 CKD-EPI Creatinine Equation (2020) Performed By: #### L 100.0100, L500.4050 ####[facility] [address] [place], [address] Globulin (S) [Mass/Vol] 2.8 g/dL Normal 2.2-4.2 [facility] Comment on above: Performed By: #### L 100.0100, L500.4050 ####[facility] [address] [place], [address] Glucose [Mass/Vol] 275 mg/dL High 70-99 [facility] Comment on above: Performed By: #### L 100.0100, L500.4050 ####[facility] [address] [place], [address] Potassium [Moles/Vol] 3.5 mmol/L Normal 3.3-5.1 [facility] [place] Comment on above: Result Comment: Hemo lysis present, Results??could be affected.?? Performed By: #### L 100.0100, L500.4050 ####[facility] [address] [place], [address] Sodium [Moles/Vol] 129 mmol/L Low 133-145 [facility] Comment on above: Performed By: #### L 100.0100, L500.4050 ####[facility] [address] [place], [address] T PROT 5.0 g/dL Low 5.9-8.4 [facility] Comment on above: Performed By: #### L 100.0100, L500.4050 ####[facility] [address] [place], [address] Urea nitrogen [Mass/Vol] 16 mg/dL Normal 4-19 [facility] Comment on above: Performed By: #### L 100.0100, L500.4050 ####[facility] [address] [place], [address] Consultation - Surgicalon Consultation - Surgical Normal [facility] Vancomycin, Random Levelon 0 01-11-2025 VANCO, RANDOM 14.8 ug/mL Normal 0.0-15.0 [facility] Comment on above: Result Comment: VANC OMYCIN STANDARD DRUG THERAPY: CRITICAL VALUE IS > 15.0 mg/LVANCOMYCIN HIGH INTENSITY THERAPY: CRITICAL VALUE IS > 20.0 mg/LPLEASE CONTACT PHARMACY SERVICES (#2664) FOR INTERPRETATIONOF RESULTS. THIS RESULT DOES NOT REPRESENT A PEAK OR TROUGHLEVEL FOR THIS DRUG. Performed By: #### L 501.8850 ####[facility] [address] [place], [address] Vancomycin, Trough Levelon 0 01-11-2025 VANCO, TROUGH 21.8 ug/mL High 5.0-15.0 [facility] Comment on above: Order Comment: Comme nts: DRAW 30 MIN PRIOR TO [id number] Result Comment: Eleazar mmended goal trough ranges [...] therapy recommended for serious lifethreatening infections include:- Xbussllfjo-Pzrdamvxguzi-Mdfnoqinv (Ventilator/Healtcare Associated)-SepsisPLEASE CONTACT PHARMACY SERVICES (#2106) FOR INTERPRETATIONOF RESULTS. Performed By: #### L 501.8820 ####[facility] [address] [facility] [address] Bedside Glucoseon 01-10-2025 FINGERSTICK GLU 193 mg/dL High 74-106 [facility] Comment on above: Result Comment: BRISA GEMENT OF PATIENT CARE PER NURSING PROTOCOL Performed By: #### L 501.080 ####[facility] [address] [facility] [address] FINGERSTICK GLU 190 mg/dL High [address] [place] [address] Comment on above: Result Comment: BRISA GEMENT OF PATIENT CARE PER NURSING PROTOCOL Performed By: #### L 501.080 ####[facility] [address] [facility] [address] FINGERSTICK GLU 195 mg/dL High [facility]106 [facility] Comment on above: Result Comment: BRISA GEMENT OF PATIENT CARE PER NURSING PROTOCOL Performed By: #### L 501.080 ####[facility] [address] [facility] [address] CBC W/Diff, Automatedon 06-0 Absolute Lymph 0.85 X10 3/uL Normal 0.83-4.51 [facility] Comment on above: Order Comment: REDRA W. PREVIOUS SPECIMEN REJECTED DUE TOCONTAMINATION. 01/10/25410 Eliazar R Mancia. Performed By: #### L 100.0100 ####[facility] [address] [place], [address] Absolute Neut 7.3 X10 3/uL Normal 2.0-7.7 [facility] Comment on above: Order Comment: REDRA W. PREVIOUS SPECIMEN REJECTED DUE TOCONTAMINATION. 01/10/25410 Eliazar R Mancia. Performed By: #### L 100.0100 ####[facility] [address] [place], [address] Basophils/100 WBC (Bld) 0.5 % Normal 0-1 [facility] Comment on above: Order Comment: REDRA W. PREVIOUS SPECIMEN REJECTED DUE TOCONTAMINATION. 01/10/25410 Eliazar R Mancia. Performed By: #### L 100.0100 ####[facility] [address] [place], [address] Eosinophils/100 WBC (Bld) 5.9 % High 0-5 [facility] Comment on above: Order Comment: REDRA W. PREVIOUS SPECIMEN REJECTED DUE TOCONTAMINATION. 01/10/25410 Eliazar R Mancia. Performed By: #### L 100.0100 ####[facility] [address] [place], [address] Erythrocyte distribution width (RBC) [Ratio] 18.7 % High 11.6-14.6 [facility] Comment on above: Order Comment: REDRA W. PREVIOUS SPECIMEN REJECTED DUE TOCONTAMINATION. 01/10/25410 Eliazar R Mancia. Performed By: #### L 100.0100 ####[facility] [address] [place], [address] Hematocrit (Bld) [Volume fraction] 23.1 % Low 40-54 [facility] Comment on above: Order Comment: REDRA W. PREVIOUS SPECIMEN REJECTED DUE TOCONTAMINATION. 01/10/25410 Eliazar R Mancia. Performed By: #### L 100.0100 ####[facility] [address] [place], [address] Hemoglobin (Bld) [Mass/Vol] 7.4 g/dL Low 13.0-16.5 [facility] Comment on above: Order Comment: REDRA W. PREVIOUS SPECIMEN REJECTED DUE TOCONTAMINATION. 01/10/25410 Eliazar R Mancia. Performed By: #### L 100.0100 ####[facility] [address] [place], [address] IG% 0.500 Normal 0.0-0.9 [facility] Comment on above: Order Comment: REDRA W. PREVIOUS SPECIMEN REJECTED DUE TOCONTAMINATION. 01/10/25410 Eliazar R Mancia. Result Comment: IG% - Immature Granulocytes (promyelocytes, myelocytes andmetamyelocytes) > 1% indicates that a LEFT SHIFT is Present. Performed By: #### L 100.0100 ####[facility] [address] [place], [address] Lymphocytes/100 WBC (Bld) 8.8 % Low 19-41 [facility] Comment on above: Order Comment: REDRA W. PREVIOUS SPECIMEN REJECTED DUE TOCONTAMINATION. 01/10/25410 Eliazar R Mancia. Performed By: #### L 100.0100 ####[facility] [address] [place], [address] MCH (RBC) [Entitic mass] 29.2 pg Normal 27.0-32.0 [facility] Comment on above: Order Comment: REDRA W. PREVIOUS SPECIMEN REJECTED DUE TOCONTAMINATION. 01/10/25410 Eliazar R Mancia. Performed By: #### L 100.0100 ####[facility] [address] [place], [address] MCHC (RBC) [Mass/Vol] 32.0 g/dL Normal 32-36 [facility] Comment on above: Order Comment: REDRA W. PREVIOUS SPECIMEN REJECTED DUE TOCONTAMINATION. 01/10/25410 Eliazar R Mancia. Performed By: #### L 100.0100 ####[facility] [address] [place], [address] MCV (RBC) [Entitic vol] 91.3 fL Normal 80-94 [facility] Comment on above: Order Comment: REDRA W. PREVIOUS SPECIMEN REJECTED DUE TOCONTAMINATION. 01/10/25410 Eliazar R Mancia. Performed By: #### L 100.0100 ####[facility] [address] [place], [address] Monocytes/100 WBC (Bld) 8.2 % Normal 0-10 [facility] Comment on above: Order Comment: REDRA W. PREVIOUS SPECIMEN REJECTED DUE TOCONTAMINATION. 01/10/25410 Eliazar R Mancia. Performed By: #### L 100.0100 ####[facility] [address] [place], [address] Neutrophils/100 WBC (Bld) 76.1 % High 47-70 [facility] Comment on above: Order Comment: REDRA W. PREVIOUS SPECIMEN REJECTED DUE TOCONTAMINATION. 01/10/25410 Eliazar R Mancia. Performed By: #### L 100.0100 ####[facility] [address] [place], [address] Nucleated RBC (Bld) [#/Vol] 0 10*3/uL Normal 0-5 [facility] Comment on above: Order Comment: REDRA W. PREVIOUS SPECIMEN REJECTED DUE TOCONTAMINATION. 01/10/25410 Eliazar R Mancia. Performed By: #### L 100.0100 ####[facility] [address] [place], [address] Platelet mean volume (Bld) [Entitic vol] 12.3 fL High 6.2-12.0 [facility] Comment on above: Order Comment: REDRA W. PREVIOUS SPECIMEN REJECTED DUE TOCONTAMINATION. 01/10/25410 Eliazar R Mancia. Performed By: #### L 100.0100 ####[facility] [address] [place], [address] Platelets (Bld) [#/Vol] 110 10*3/uL Low 150-450 [facility] Comment on above: Order Comment: REDRA W. PREVIOUS SPECIMEN REJECTED DUE TOCONTAMINATION. 01/10/25410 Eliazar R Mancia. Performed By: #### L 100.0100 ####[facility] [address] [place], [address] RBC (Bld) [#/Vol] 2.53 10*6/uL Low 4.6-6.2 [facility] Comment on above: Order Comment: REDRA W. PREVIOUS SPECIMEN REJECTED DUE TOCONTAMINATION. 01/10/25410 Eliazar R Mancia. Performed By: #### L 100.0100 ####[facility] [address] [place], [address] RDW SD 60.1 fl High 35.1-43.9 [facility] Comment on above: Order Comment: REDRA W. PREVIOUS SPECIMEN REJECTED DUE TOCONTAMINATION. 01/10/25410 Eliazar R Mancia. Performed By: #### L 100.0100 ####[facility] [address] [place], [address] WBC (Bld) [#/Vol] 9.6 10*3/uL Normal 4.4-11.0 [facility] Comment on above: Order Comment: REDRA W. PREVIOUS SPECIMEN REJECTED DUE TOCONTAMINATION. 01/10/25410 Eliazar R Mancia. Performed By: #### L 100.0100 ####[facility] [address] [place], [address] DIFF INDICATED? SCAN CRITERIA MET Normal [facility] Comment on above: Result Comment: This specimen has been REJECTED due to Laboratory criteria:Contaminated/Leaked.VWEEMAN has been notified of need of recollection.01/10/25408 Eliazar R Mancia Performed By: #### L 100.0100, L500.4050 ####[facility] [address] [place], [address] Hemoglobin (Bld) [Mass/Vol] 5.5 g/dL Invalid Interpretation Code 13.0-16.5 [facility] Comment on above: Result Comment: This specimen has been REJECTED due to Laboratory criteria:Contaminated/Leaked.[facility] has been notified of need of recollection.01/10/25408 Eliazar R BurnsCRITICAL VALUE CALLED TO PORTIA TAVAREZ (ICU)01/10/25 0336 Henry Calloway.RESULTS READ BACK BY SAME. Performed By: #### L 100.0100, L500.4050 ####[facility] [address] [place], [address] Absolute Lymph 4.28 X10 3/uL Normal 0.83-4.51 [facility] Comment on above: Result Comment: This specimen has been REJECTED due to Laboratory criteria:Contaminated/Leaked.[facility] has been notified of need of recollection.01/10/25408 Eliazar R Mancia Performed By: #### L 100.0100, L500.4050 ####[facility] [address] [place], [address] Absolute Neut 1.7 X10 3/uL Low 2.0-7.7 [facility] Comment on above: Result Comment: This specimen has been REJECTED due to Laboratory criteria:Contaminated/Leaked.[facility] has been notified of need of recollection.01/10/25408 Eliazar R Mancia Performed By: #### L 100.0100, L500.4050 ####[facility] [address] [place], [address] BASO# 0.01 X10 3/uL Normal [facility] Comment on above: Result Comment: This specimen has been REJECTED due to Laboratory criteria:Contaminated/Leaked.[facility] has been notified of need of recollection.01/10/25408 Eliazar R Mancia Performed By: #### L 100.0100, L500.4050 ####[facility] [address] [place], [address] Basophils/100 WBC (Bld) 0.2 % Normal 0-1 [facility] Comment on above: Result Comment: This specimen has been REJECTED due to Laboratory criteria:Contaminated/Leaked.[facility] has been notified of need of recollection.01/10/25408 Eliazar R Mancia Performed By: #### L 100.0100, L500.4050 ####[facility] [address] [place], [address] EOS# 0.15 X10 3/uL Normal [facility] Comment on above: Result Comment: This specimen has been REJECTED due to Laboratory criteria:Contaminated/Leaked.[facility] has been notified of need of recollection.01/10/25408 Eliazar R Mancia Performed By: #### L 100.0100, L500.4050 ####[facility] [address] [place], [address] Eosinophils/100 WBC (Bld) 2.4 % Normal 0-5 [facility] Comment on above: Result Comment: This specimen has been REJECTED due to Laboratory criteria:Contaminated/Leaked.[facility] has been notified of need of recollection.01/10/25408 Eliazar R Mancia Performed By: #### L 100.0100, L500.4050 ####[facility] [address] [place], [address] Erythrocyte distribution width (RBC) [Ratio] 19.2 % High 11.6-14.6 [facility] Comment on above: Result Comment: This specimen has been REJECTED due to Laboratory criteria:Contaminated/Leaked.[facility] has been notified of need of recollection.01/10/25408 Eliazar R Mancia Performed By: #### L 100.0100, L500.4050 ####[facility] [address] [place], [address] Hematocrit (Bld) [Volume fraction] 20.7 % Low 40-54 [facility] Comment on above: Result Comment: This specimen has been REJECTED due to Laboratory criteria:Contaminated/Leaked.EEMAN has been notified of need of recollection.01/10/25408 Eliazar R Mancia Performed By: #### L 100.0100, L500.4050 ####[facility] [address] [place], [address] IG# 0.020 X10 3/uL High 0.0-0.0 [facility] Comment on above: Result Comment: This specimen has been REJECTED due to Laboratory criteria:Contaminated/Leaked.EETOLNA has been notified of need of recollection.01/10/25408 Eliazar R Mancia Performed By: #### L 100.0100, L500.4050 ####[facility] [address] [place], [address] IG% 0.300 Normal 0.0-0.9 [facility] Comment on above: Result Comment: This specimen has been REJECTED due to Laboratory criteria:Contaminated/Leaked.EETOLNA has been notified of need of recollection.01/10/25408 Eliazar R BurnsIG% - Immature Granulocytes (promyelocytes, myelocytes andmetamyelocytes) > 1% indicates that a LEFT SHIFT is Present. Performed By: #### L 100.0100, L500.4050 ####[facility] [address] [place], [address] LYMPH# 4.28 X10 3/ul Normal 0.83-4.51 [facility] Comment on above: Result Comment: This specimen has been REJECTED due to Laboratory criteria:Contaminated/Leaked.EETOLNA has been notified of need of recollection.01/10/25408 Eliazar R Mancia Performed By: #### L 100.0100, L500.4050 ####[facility] [address] [place], [address] Lymphocytes/100 WBC (Bld) 67.8 % High 19-41 [facility] Comment on above: Result Comment: This specimen has been REJECTED due to Laboratory criteria:Contaminated/Leaked.[facility] has been notified of need of recollection.01/10/25408 Eliazar R Mancia Performed By: #### L 100.0100, L500.4050 ####[facility] [address] [place], [address] MCH (RBC) [Entitic mass] 29.4 pg Normal 27.0-32.0 [facility] Comment on above: Result Comment: This specimen has been REJECTED due to Laboratory criteria:Contaminated/Leaked.[facility] has been notified of need of recollection.01/10/25408 Eliazar R Mancia Performed By: #### L 100.0100, L500.4050 ####[facility] [address] [place], [address] MCHC (RBC) [Mass/Vol] 26.6 g/dL Low 32-36 [facility] Comment on above: Result Comment: This specimen has been REJECTED due to Laboratory criteria:Contaminated/Leaked.[facility] has been notified of need of recollection.01/10/25408 Eliazar R Mancia Performed By: #### L 100.0100, L500.4050 ####[facility] [address] [place], [address] MCV (RBC) [Entitic vol] 110.7 fL High 80-94 [facility] Comment on above: Result Comment: This specimen has been REJECTED due to Laboratory criteria:Contaminated/Leaked.[facility] has been notified of need of recollection.01/10/25408 Eliazar R Mancia Performed By: #### L 100.0100, L500.4050 ####[facility] [address] [place], [address] MONO # 0.16 X10 3/uL Normal [facility] Comment on above: Result Comment: This specimen has been REJECTED due to Laboratory criteria:Contaminated/Leaked.[facility] has been notified of need of recollection.01/10/25408 Eliazar R Mancia Performed By: #### L 100.0100, L500.4050 ####[facility] [address] [place], [address] Monocytes/100 WBC (Bld) 2.5 % Normal 0-10 [facility] Comment on above: Result Comment: This specimen has been REJECTED due to Laboratory criteria:Contaminated/Leaked.[facility] has been notified of need of recollection.01/10/25408 Eliazar R Mancia Performed By: #### L 100.0100, L500.4050 ####[facility] [address] [place], [address] Neutrophil # 1.69 X10 3/uL Low 2.7-7.7 [facility] Comment on above: Result Comment: This specimen has been REJECTED due to Laboratory criteria:Contaminated/Leaked.[facility] has been notified of need of recollection.01/10/25408 Eliazar R Mancia Performed By: #### L 100.0100, L500.4050 ####[facility] [address] [place], [address] Neutrophils/100 WBC (Bld) 26.8 % Low 47-70 [facility] Comment on above: Result Comment: This specimen has been REJECTED due to Laboratory criteria:Contaminated/Leaked.[facility] has been notified of need of recollection.01/10/25408 Eliazar R Mancia Performed By: #### L 100.0100, L500.4050 ####[facility] [address] [place], [address] Nucleated RBC (Bld) [#/Vol] 0 10*3/uL Normal 0-5 [facility] Comment on above: Result Comment: This specimen has been REJECTED due to Laboratory criteria:Contaminated/Leaked.[facility] has been notified of need of recollection.01/10/25408 Eliazar R Mancia Performed By: #### L 100.0100, L500.4050 ####[facility] [address] [place], [address] Platelet mean volume (Bld) [Entitic vol] 12.2 fL High 6.2-12.0 [facility] Comment on above: Result Comment: This specimen has been REJECTED due to Laboratory criteria:Contaminated/Leaked.[facility] has been notified of need of recollection.01/10/25408 Eliazar R Mancia Performed By: #### L 100.0100, L500.4050 ####[facility] [address] [place], [address] Platelets (Bld) [#/Vol] 97 10*3/uL Low 150-450 [facility] Comment on above: Result Comment: This specimen has been REJECTED due to Laboratory criteria:Contaminated/Leaked.[facility] has been notified of need of recollection.01/10/25408 Eliazar R Mancia Performed By: #### L 100.0100, L500.4050 ####[facility] [address] [place], [address] [address] Abnormal [facility] Comment on above: Result Comment: This specimen has been REJECTED due to Laboratory criteria:Contaminated/Leaked.[facility] has been notified of need of recollection.01/10/25408 Eliazar R Mancia Performed By: #### L 100.0100, L500.4050 ####[facility] [address] [place], [address] [address] YES Ab[address] [facility] Comment on above: Result Comment: This specimen has been REJECTED due to Laboratory criteria:Contaminated/Leaked.[facility] has been notified of need of recollection.01/10/25408 Eliazar R Mancia Performed By: #### L 100.0100, L500.4050 ####[facility] [address] [place], [address] RBC (Bld) [#/Vol] 1.87 10*6/uL Low 4.6-6.2 [facility] Comment on above: Result Comment: This specimen has been REJECTED due to Laboratory criteria:Contaminated/Leaked.EETOLNA has been notified of need of recollection.01/10/25408 Eliazar R Mancia Performed By: #### L 100.0100, L500.4050 ####[facility] [address] [place], [address] RDW SD 73.4 fl High 35.1-43.9 [facility] Comment on above: Result Comment: This specimen has been REJECTED due to Laboratory criteria:Contaminated/Leaked.EETOLNA has been notified of need of recollection.01/10/25408 Eliazar R Mancia Performed By: #### L 100.0100, L500.4050 ####[facility] [address] [place], [address] WBC (Bld) [#/Vol] 6.3 10*3/uL Normal 4.4-11.0 [facility] Comment on above: Result Comment: This specimen has been REJECTED due to Laboratory criteria:Contaminated/Leaked.[facility] has been notified of need of recollection.01/10/25408 Eliazar R Mancia Performed By: #### L 100.0100, L500.4050 ####[facility] [address] [place], [address] Comprehensive Metabolic Prof ilon 01-10-2025 Albumin [Mass/Vol] 2.4 g/dL Low 3.5-5.0 [facility] Comment on above: Order Comment: ROSIO Gupta PREVIOUS SPECIMEN REJECTED DUE TOCONTAMINATION. 01/10/25409 Eliazar R Mancia. Performed By: #### L 500.4050, L501.5200, L501.2300 ####[facility] [address] [place], [address] Albumin/Globulin [Mass ratio] 0.9 {ratio} Normal 0.9-2.4 [facility] Comment on above: Order Comment: REDRA W. PREVIOUS SPECIMEN REJECTED DUE TOCONTAMINATION. 01/10/25409 Eliazar R Mancia. Performed By: #### L 500.4050, L501.5200, L501.2300 ####[facility] [address] [place], [address] ALK PHOS 244 U/L High 40-129 [facility] Comment on above: Order Comment: REDRA W. PREVIOUS SPECIMEN REJECTED DUE TOCONTAMINATION. 01/10/25409 Eliazar R Mancia. Performed By: #### L 500.4050, L501.5200, L501.2300 ####[facility] [address] [place], [address] ALT [Catalytic activity/Vol] 54 U/L High <=46 [facility] Comment on above: Order Comment: REDRA W. PREVIOUS SPECIMEN REJECTED DUE TOCONTAMINATION. 01/10/25409 Eliazar R Mancia. Performed By: #### L 500.4050, L501.5200, L501.2300 ####[facility] [address] [place], [address] AST [Catalytic activity/Vol] 101 U/L High <=37 [facility] Comment on above: Order Comment: REDRA W. PREVIOUS SPECIMEN REJECTED DUE TOCONTAMINATION. 01/10/25409 Eliazar R Mancia. Performed By: #### L 500.4050, L501.5200, L501.2300 ####[facility] [address] [place], [address] Bilirubin [Mass/Vol] 1.57 mg/dL High 0.00-1.30 [facility] Comment on above: Order Comment: REDRA W. PREVIOUS SPECIMEN REJECTED DUE TOCONTAMINATION. 01/10/25409 Eliazar R Mancia. Performed By: #### L 500.4050, L501.5200, L501.2300 ####[facility] [address] [place], [address] BUN/CRE 13.7 RATIO Normal 10-20 [facility] Comment on above: Order Comment: REDRA W. PREVIOUS SPECIMEN REJECTED DUE TOCONTAMINATION. 01/10/25409 Eliazar R Mancia. Performed By: #### L 500.4050, L501.5200, L501.2300 ####[facility] [address] [place], [address] Calcium [Mass/Vol] 7.8 mg/dL Normal 7.6-11.0 [facility] Comment on above: Order Comment: REDRA W. PREVIOUS SPECIMEN REJECTED DUE TOCONTAMINATION. 01/10/25409 Eliazar R Mancia. Performed By: #### L 500.4050, L501.5200, L501.2300 ####[facility] [address] [place], [address] Chloride [Moles/Vol] 101 mmol/L Normal 98-108 [facility] Comment on above: Order Comment: REDRA W. PREVIOUS SPECIMEN REJECTED DUE TOCONTAMINATION. 01/10/25409 Eliazar R Mancia. Performed By: #### L 500.4050, L501.5200, L501.2300 ####[facility] [address] [place], [address] CO2 [Moles/Vol] 13.1 mmol/L Low 21.0-32.0 [facility] Comment on above: Order Comment: REDRA W. PREVIOUS SPECIMEN REJECTED DUE TOCONTAMINATION. 01/10/25409 Eliazar R Mancia. Performed By: #### L 500.4050, L501.5200, L501.2300 ####[facility] [address] [place], [address] Creatinine [Mass/Vol] 1.95 mg/dL High 0.70-1.20 [facility] Comment on above: Order Comment: REDRA W. PREVIOUS SPECIMEN REJECTED DUE TOCONTAMINATION. 01/10/25409 Eliazar R Mancia. Performed By: #### L 500.4050, L501.5200, L501.2300 ####[facility] [address] [place], [address] ECRCL 45.71 ml/min Low 50-250 [facility] Comment on above: Order Comment: REDRA W. PREVIOUS SPECIMEN REJECTED DUE TOCONTAMINATION. 01/10/25409 Eliazar R Mancia. Performed By: #### L 500.4050, L501.5200, L501.2300 ####[facility] [address] [place], [address] GAP 15 Normal 5-15 [facility] Comment on above: Order Comment: REDRA W. PREVIOUS SPECIMEN REJECTED DUE TOCONTAMINATION. 01/10/25409 Eliazar R Mancia. Performed By: #### L 500.4050, L501.5200, L501.2300 ####[facility] [address] [place], [address] GFR/1.73 sq M.predicted among non-blacks MDRD (S/P/Bld) [Vol rate/Area] 39 mL/min/{1.73_m2} Low >60 [facility] Comment on above: Order Comment: REDRA W. PREVIOUS SPECIMEN REJECTED DUE TOCONTAMINATION. 01/10/25409 Eliazar R Mancia. Result Comment: mL/m in/1.73m2 CKD-EPI Creatinine Equation (2020) Performed By: #### L 500.4050, L501.5200, L501.2300 ####[facility] [address] [place], [address] Globulin (S) [Mass/Vol] 2.6 g/dL Normal 2.2-4.2 [facility] Comment on above: Order Comment: REDRA W. PREVIOUS SPECIMEN REJECTED DUE TOCONTAMINATION. 01/10/25409 Eliazar R Mancia. Performed By: #### L 500.4050, L501.5200, L501.2300 ####[facility] [address] [place], [address] Glucose [Mass/Vol] 247 mg/dL High 70-99 [facility] Comment on above: Order Comment: REDRA W. PREVIOUS SPECIMEN REJECTED DUE TOCONTAMINATION. 01/10/25409 Eliazar R Mancia. Performed By: #### L 500.4050, L501.5200, L501.2300 ####[facility] [address] [place], [address] Potassium [Moles/Vol] 3.4 mmol/L Normal 3.3-5.1 [facility] [place] Comment on above: Order Comment: REDRA W. PREVIOUS SPECIMEN REJECTED DUE TOCONTAMINATION. 01/10/25409 Eliazar R Mancia. Performed By: #### L 500.4050, L501.5200, L501.2300 ####[facility] [address] [place], [address] Sodium [Moles/Vol] 129 mmol/L Low 133-145 [facility] Comment on above: Order Comment: REDRA W. PREVIOUS SPECIMEN REJECTED DUE TOCONTAMINATION. 01/10/25409 Eliazar R Mancia. Performed By: #### L 500.4050, L501.5200, L501.2300 ####[facility] [address] [place], [address] T PROT 5.0 g/dL Low 5.9-8.4 [facility] Comment on above: Order Comment: REDRA W. PREVIOUS SPECIMEN REJECTED DUE TOCONTAMINATION. 01/10/25409 Eliazar R Mancia. Performed By: #### L 500.4050, L501.5200, L501.2300 ####[facility] [address] [place], [address] Urea nitrogen [Mass/Vol] 27 mg/dL High 4-19 [facility] Comment on above: Order Comment: REDRA W. PREVIOUS SPECIMEN REJECTED DUE TOCONTAMINATION. 01/10/25409 Eliazar R Mancia. Performed By: #### L 500.4050, L501.5200, L501.2300 ####[facility] [address] [place], [address] ALB Normal 3.5-5.0 [facility] Comment on above: Result Comment: This specimen has been REJECTED due to Laboratory criteria:Contaminated/Leaked.[facility] has been notified of need of recollection.01/10/25408 Eliazar R Mancia Performed By: #### L 100.0100, L500.4050 ####[facility] [address] [place], [address] ALK PHOS Normal 40-129 [facility] Comment on above: Result Comment: This specimen has been REJECTED due to Laboratory criteria:Contaminated/Leaked.[facility] has been notified of need of recollection.01/10/25408 Eliazar R Mancia Performed By: #### L 100.0100, L500.4050 ####[facility] [address] [place], [address] ALT Normal <=46 [facility] Comment on above: Result Comment: This specimen has been REJECTED due to Laboratory criteria:Contaminated/Leaked.[facility] has been notified of need of recollection.01/10/25408 Eliazar R Mancia Performed By: #### L 100.0100, L500.4050 ####[facility] [address] [place], [address] AST Normal <=37 [facility] Comment on above: Result Comment: This specimen has been REJECTED due to Laboratory criteria:Contaminated/Leaked.[facility] has been notified of need of recollection.01/10/25408 Eliazar R Mancia Performed By: #### L 100.0100, L500.4050 ####[facility] [address] [place], [address] BUN Normal 4-19 [facility] Comment on above: Result Comment: This specimen has been REJECTED due to Laboratory criteria:Contaminated/Leaked.[facility] has been notified of need of recollection.01/10/25408 Eliazar R Mancia Performed By: #### L 100.0100, L500.4050 ####[facility] [address] [place], [address] BUN/CRE Normal 10-20 [facility] Comment on above: Result Comment: This specimen has been REJECTED due to Laboratory criteria:Contaminated/Leaked.[facility] has been notified of need of recollection.01/10/25408 Eliazar R Mancia Performed By: #### L 100.0100, L500.4050 ####[facility] [address] [place], [address] Calcium Normal 7.6-11.0 [facility] Comment on above: Result Comment: This specimen has been REJECTED due to Laboratory criteria:Contaminated/Leaked.[facility] has been notified of need of recollection.01/10/25408 Eliazar R Mancia Performed By: #### L 100.0100, L500.4050 ####[facility] [address] [place], [address] CL Normal 98-108 [facility] Comment on above: Result Comment: This specimen has been REJECTED due to Laboratory criteria:Contaminated/Leaked.[facility] has been notified of need of recollection.01/10/25408 Eliazar R Mancia Performed By: #### L 100.0100, L500.4050 ####[facility] [address] [place], [address] CO2 Normal 21.0-32.0 [facility] Comment on above: Result Comment: This specimen has been REJECTED due to Laboratory criteria:Contaminated/Leaked.[facility] has been notified of need of recollection.01/10/25408 Eliazar R Mancia Performed By: #### L 100.0100, L500.4050 ####[facility] [address] [place], [address] CREAT,SERUM Normal 0.70-1.20 [facility] Comment on above: Result Comment: This specimen has been REJECTED due to Laboratory criteria:Contaminated/Leaked.[facility] has been notified of need of recollection.01/10/25408 Eliazar R Mancia Performed By: #### L 100.0100, L500.4050 ####[facility] [address] [place], [address] eGFR Normal >60 [facility] Comment on above: Result Comment: This specimen has been REJECTED due to Laboratory criteria:Contaminated/Leaked.[facility] has been notified of need of recollection.01/10/25408 Eliazar R Mancia Performed By: #### L 100.0100, L500.4050 ####[facility] [address] [place], [address] GAP Normal 5-15 [facility] Comment on above: Result Comment: This specimen has been REJECTED due to Laboratory criteria:Contaminated/Leaked.[facility] has been notified of need of recollection.01/10/25408 Eliazar R Mancia Performed By: #### L 100.0100, L500.4050 ####[facility] [address] [place], [address] GLU Normal 70-99 [facility] Comment on above: Result Comment: This specimen has been REJECTED due to Laboratory criteria:Contaminated/Leaked.[facility] has been notified of need of recollection.01/10/25408 Eliazar R Mancia Performed By: #### L 100.0100, L500.4050 ####[facility] [address] [place], [address] Potassium Normal 3.3-5.1 [facility] Comment on above: Result Comment: This specimen has been REJECTED due to Laboratory criteria:Contaminated/Leaked.[facility] has been notified of need of recollection.01/10/25408 Eliazar R Mancia Performed By: #### L 100.0100, L500.4050 ####[facility] [address] [place], [address] T BILI Normal 0.00-1.30 [facility] Comment on above: Result Comment: This specimen has been REJECTED due to Laboratory criteria:Contaminated/Leaked.[facility] has been notified of need of recollection.01/10/25408 Eliazar R Mancia Performed By: #### L 100.0100, L500.4050 ####[facility] [address] [place], [address] T PROT Normal 5.9-8.4 [facility] Comment on above: Result Comment: This specimen has been REJECTED due to Laboratory criteria:Contaminated/Leaked.[facility] has been notified of need of recollection.01/10/25408 Eliazar R Mancia Performed By: #### L 100.0100, L500.4050 ####[facility] [address] [place], [address] Comprehensive Metabolic Profil Normal 133-145 [facility] Comment on above: Result Comment: This specimen has been REJECTED due to Laboratory criteria:Contaminated/Leaked.[facility] has been notified of need of recollection.01/10/25408 Eliazar R Mancia Performed By: #### L 100.0100, L500.4050 ####[facility] [address] [place], [address] Magnesiumon 01-10-2025 Magnesium [Mass/Vol] 1.4 mg/dL Low 1.5-2.2 [facility] Comment on above: Order Comment: ROSIO Hampton. PREVIOUS SPECIMEN REJECTED DUE TOCONTAMINATION. 01/10/25409 Eliazar R Mancia. Performed By: #### L 500.4050, L501.5200, L501.2300 ####[facility] [address] [place], [place], [address] Phosphoruson 01-10-2025 Phosphate [Mass/Vol] 3.5 mg/dL Normal 2.7-4.5 [facility] Comment on above: Order Comment: ROSIO Hampton. PREVIOUS SPECIMEN REJECTED DUE TOCONTAMINATION. 01/10/25 0410 Eliazar R Blanche. Performed By: #### L 500.4050, L501.5200, L501.2300 ####[facility] [address] [place], [place], [address] Absolute lymphocyte countOrd ered By: Remus Ungbrandon on 01-09-2025 Lymphocytes Auto (Unsp spec) [#/Vol] 0.95 10*3/uL 0.83-4.51 [facility] Ammoniaon 01-09-2025 Ammonia (P) [Moles/Vol] 61.1 umol/L High 16-60 [facility] Comment on above: Performed By: #### L 503.5510 ####[facility] [address] [place], [place], [id number] Anion gap in Serum or Plasma Ordered By: Remus Ungbrandon on 01-09-2025 Anion gap [Moles/Vol] 13 mmol/L 5-15 [facility] [place] Automated lymphocyte count a s percentage of total leukocytesOrdered By: Remus Ungur on 01-09-2025 Lymphocytes/100 WBC Auto (Unsp spec) 7.2 % Low 19-41 [facility] BUN/creatinine ratioOrdered By: Remus Ungur on 01-09-2025 Urea nitrogen/Creatinine [Mass ratio] 13.4 mg/mg 10-20 [facility] Basophil percentageOrdered B y: Remus Ungur on 01-09-2025 Basophils/100 WBC (Bld) 0.4 % 0-1 [facility] Bedside Glucoseon 01-09-2025 FINGERSTICK GLU 143 mg/dL High 74-106 [facility] Comment on above: Result Comment: BRISA MOROCHO OF PATIENT CARE PER NURSING PROTOCOL Performed By: #### L 501.080 ####[facility] [address] [place], [place], [address] Bilirubin Test strip Ql (U)O rdered By: Breann Mendez on 01-09-2025 Bilirubin Ql (U) 1 mg/dL High Negative [facility] Bilirubin, totalOrdered By: Breann Mendez on 01-09-2025 Bilirubin [Mass/Vol] 1.15 mg/dL 0.00-1.30 [facility] Blood cultureOrdered By: Ramona Mendez on 01-09-2025 Bacteria identified Cx Nom (Bld) No growth in [address] [facility] Bacteria identified Cx Nom (Bld) No growth in [address] [facility] CO2 (BldV) [Moles/Vol]Ordere d By: Yaritza Leo on 01-09-2025 CO2 [Moles/Vol] 15 mmol/L Low 23-33 [facility] Carbon dioxide, total [Moles /volume] in Central venous bloodOrdered By: Breann Mendez on 01-09-2025 CO2 [Moles/Vol] 13.6 mmol/L Low 21.0-32.0 [facility] Chloride assayOrdered By: Josselyn Mendez on 01-09-2025 Chloride [Moles/Vol] 103 mmol/L 98-108 [facility] Eosinophil percentageOrdered By: Breann Mendez on 01-09-2025 Eosinophils/100 WBC (Bld) 4.2 % 0-5 [facility] Erythrocyte distribution wid th ratioOrdered By: Breann Mendez on 01-09-2025 Erythrocyte distribution width (RBC) [Ratio] 18.1 % High 11.6-14.6 [facility] Erythrocyte distribution wid th standard deviationOrdered By: Breann Mendez on 01-09-2025 Erythrocyte distribution width (RBC) [Ratio] 57.5 fl High 35.1-43.9 [facility] Glomerular filtration rate ( GFR) estimation/1.73 sq m using serum, plasma, or whole bOrdered By: Breann Mendez on 01-09-2025 GFR/1.73 sq M.predicted among non-blacks MDRD (S/P/Bld) [Vol rate/Area] 44 mL/min/{1.73_m2} Low >60 [facility] Hematocrit Auto (Bld) [Volum e fraction]Ordered By: Breann Mendez on 01-09-2025 Hematocrit (Bld) [Volume fraction] 24.3 % Low 40-54 [facility] Hemoglobin measurementOrdere d By: Breann Mendez on 01-09-2025 Hemoglobin (Bld) [Mass/Vol] 7.9 g/dL Low 13.0-16.5 [facility] Immature granulocytes/100 WB C Auto (Bld)Ordered By: Breann Mendez on 01-09-2025 Immature granulocytes/100 WBC (Bld) 0.900 % 0.0-0.9 [facility] Ketones Test strip Ql (U)Ord ered By: Breann Mendez on 01-09-2025 Ketones Ql (U) 5 mg/dl High Negative [facility] MCV (mean corpuscular volume ) determinationOrdered By: Breann Mendez on 01-09-2025 MCV (RBC) [Entitic vol] 90.3 fL 80-94 [facility] Mean corpuscular hemoglobin (MCH) determinationOrdered By: Breann Mendez on 01-09-2025 MCH (RBC) [Entitic mass] 29.4 pg 27.0-32.0 [facility] Monocyte percentageOrdered B y: Breann Mendez on 01-09-2025 Monocytes/100 WBC (Bld) 6.7 % 0-10 [facility] Mucus LM Ql (Urine sed)Order ed By: Breann Mendez on 01-09-2025 Mucus Ql (Urine sed) 0 SEEN /hpf [facility] [place] Neutrophil percentageOrdered By: Breann Mendez on 01-09-2025 Neutrophils/100 WBC (Bld) 80.6 % High 47-70 [facility] Nitrite Test strip Ql (U)Ord ered By: Breann Mendez on 01-09-2025 Nitrite Ql (U) Negative Negative [facility] No Panel InformationOrdered By: Yaritza Leo on 01-09-[address] [facility] Not entered [facility] No Panel InformationOrdered By: Breann Mendez on 01-09-2025 68 U/L High <38 [facility] Platelet countOrdered By: Josselyn Mendez on 01-09-2025 Platelets (Bld) [#/Vol] 114 10*3/uL Low 150-450 [facility] Potassium measurement (mass/ volume)Ordered By: Breann Mendez on 01-09-2025 Potassium (Unsp spec) [Mass/Vol] 3.6 mmol/L 3.3-5.1 [facility] Protein Test strip Ql (U)Ord ered By: Breann Mendez on 01-09-2025 Protein Ql (U) 500 mg/dl High Negative [facility] RBC Auto (Bld) [#/Vol]Ordere d By: Breann Mendez on 01-09-2025 RBC (Bld) [#/Vol] 2.69 10*6/uL Low 4.6-6.2 [facility] Serum creatinine measurement (mass/volume)Ordered By: Breann Mendez on 01-09-2025 Creatinine [Mass/Vol] 1.77 mg/dL High 0.70-1.20 [facility] [place] Serum globulin measurementOr dered By: Breann Mendez on 01-09-2025 Globulin (S) [Mass/Vol] 2.9 g/dL 2.2-4.2 [facility] Serum glucose measurement (m ass/volume)Ordered By: Breann Mendez on 01-09-2025 Glucose [Mass/Vol] 149 mg/dL High 70-99 [facility] Serum or plasma alanine thomas otransferase (ALT) measurementOrdered By: Breann Mendez on 01-09-2025 ALT [Catalytic activity/Vol] 42 U/L <47 [facility] Serum or plasma albumin roosevelt urement (mass/volume)Ordered By: Breann Mendez on 01-09-2025 Albumin [Mass/Vol] 2.4 g/dL Low 3.5-5.0 [facility] Serum or plasma albumin/glob ulin mass ratioOrdered By: Breann Mendez on 01-09-2025 Albumin/Globulin [Mass ratio] 0.8 {ratio} Low 0.9-2.4 [facility] Serum or plasma alkaline kendrick sphatase measurementOrdered By: Breann Mendez on 01-09-2025 ALP [Catalytic activity/Vol] 196 U/L High 40-129 [facility] Serum or plasma calcium roosevelt urement (mass/volume)Ordered By: Breann Mendez on 01-09-2025 Calcium [Mass/Vol] 8.4 mg/dL 7.6-11.0 [facility] Serum or plasma creatine kin ase activityOrdered By: Yaritza Leo on 01-09-2025 CK [Catalytic activity/Vol] 34 U/L 24-195 [facility] Serum or plasma urea nitroge n measurement (mass/volume)Ordered By: Remus Vanessa on 01-09-2025 Urea nitrogen [Mass/Vol] 24 mg/dL High 4-19 [facility] Sodium levelOrdered By: Remu s Vanessa on 01-09-2025 Sodium [Moles/Vol] 129 mmol/L Low 133-145 [facility] Squamous epithelial cells de tection in urine sediment by light microscopyOrdered By: Remus Mendez on 01-09-2025 Epithelial cells.squamous LM Ql (Urine sed) 0-5 SEEN /hpf 0-5 [facility] Total proteinOrdered By: Rem us Mendez on 01-09-2025 Protein [Mass/Vol] 5.3 g/dL Low 5.9-8.4 [facility] Urine clarityOrdered By: Rem us Vanessa on 01-09-2025 Clarity (U) Turbid Clear [facility] Urine color determinationOrd ered By: Remus Mendez on 01-09-2025 Color (U) Red Yellow [facility] Urine cultureOrdered By: Rem us Vanessa on 01-09-2025 Bacteria identified Cx Nom (U) Yeast, not Mary albicans Abnormal [facility] Urine glucose detectionOrder ed By: Breann Mendez on 01-09-2025 Glucose Ql (U) Normal mg/dl Normal [facility] Urine leukocyte esterase det ection by dipstickOrdered By: Remus Vanessa on 01-09-2025 Leukocyte esterase Test strip Ql (U) 500 /ul High Negative [facility] Urine pHOrdered By: Breann Landers gur on 01-09-2025 pH (U) 6.0 [pH] 5.0 - 8.0 [facility] Urine sediment bacteria coun t by microscopy (number/high power field)Ordered By: Remus Mendez on 01-09-2025 Bacteria LM.HPF (Urine sed) [#/Area] 0 /[HPF] None Seen [facility] Urine specific gravity measu rementOrdered By: Breann Mendez on 01-09-2025 Specific gravity (U) [Rel density] 1.015 1.002-1.030 [facility] Urine urobilinogen measureme ntOrdered By: Breann Mendez on 01-09-2025 Urobilinogen Ql (U) Normal mg/dl Normal [facility] [place] Venous Blood Gason Blood Gas Type TRAMAINE Normal [facility] Comment on above: Performed By: #### L 9000.0810 ####[facility] [address] [place], [address] CO2 [Moles/Vol] 15 mmol/L Low 23-33 [facility] Comment on above: Performed By: #### L 8999.0810 ####[facility] [address] [place], [address] HCO3 (Bld) [Moles/Vol] 14 mmol/L Low 22-26 [facility] Comment on above: Performed By: #### L 0.0810 ####[facility] [address] [place], [address] O2 Delivery Dev Not entered [facility] Comment on above: Performed By: #### L 0.0810 ####[facility] [address] [place], [address] SITE Not entered Normal [facility] Comment on above: Performed By: #### L 9000.0810 ####[facility] [address] [place], [address] VBG pCO2 24.7 mmHg Low 41-51 [facility] Comment on above: Performed By: #### L 8999.0810 ####[facility] [address] [place], [address] VBG pH 7.36 Normal 7.32-7.42 [facility] Comment on above: Performed By: #### L 9000.0810 ####[facility] [address] [place], [address] Venous blood ammonia measure mentOrdered By: Lupillo Robbins on 01-09-2025 Ammonia (P) [Moles/Vol] 61.1 umol/L High 16-60 [facility] Venous blood base excess wei surementOrdered By: Yaritza Leo on 01-09-2025 Base excess Calc (BldV) [Moles/Vol] -11 mmol/L Low -1.0-3.5 [facility] Venous blood bicarbonate wei surementOrdered By: Yaritza Leo on 01-09-2025 HCO3 (Bld) [Moles/Vol] 14 mmol/L Low 22-26 [facility] Venous blood pH measurementO rdered By: Yaritza Leo on 01-09-2025 pH (BldV) 7.36 [pH] 7.32-7.42 [facility] Venous blood partial pressur e of carbon dioxide measurementOrdered By: Yaritza Leo on 01-09-2025 CO2 (BldV) [Partial pressure] 24.7 mm[Hg] Low 41-51 [facility] Venous blood partial pressur e of oxygen measurementOrdered By: Yaritza Leo on 01-09-2025 Oxygen (BldV) [Partial pressure] 49 mm[Hg] High 25-40 [facility] White blood cell (WBC) count Ordered By: Breann Mendez on 01-09-2025 WBC (Bld) [#/Vol] 13.2 10*3/uL High 4.4-11.0 [facility] White blood cell countOrdere d By: Breann Mendez on 01-09-2025 White blood cell count 50-100 SEEN /hpf 0-5 [facility] Absolute lymphocyte countOrd ered By: Hill Acuña on 01-05-2025 Lymphocytes Auto (Unsp spec) [#/Vol] 0.94 10*3/uL 0.83-4.51 [facility] Anion gap in Serum or Plasma Ordered By: Hill Acuña on 01-05-2025 Anion gap [Moles/Vol] 9 mmol/L 5-15 [facility] [place] Automated lymphocyte count a s percentage of total leukocytesOrdered By: Hill Acuña on 01-05-2025 Lymphocytes/100 WBC Auto (Unsp spec) 13.4 % Low 19-41 [facility] BUN/creatinine ratioOrdered By: Hill Acuña on 01-05-2025 Urea nitrogen/Creatinine [Mass ratio] 11.9 mg/mg 10-20 [facility] Basophil percentageOrdered B y: Hill Acuña on 01-05-2025 Basophils/100 WBC (Bld) 0.4 % 0-1 [facility] Carbon dioxide, total [Moles /volume] in Central venous bloodOrdered By: Hill Acuña on 01-05-2025 CO2 [Moles/Vol] 18.5 mmol/L Low 21.0-32.0 [facility] Chloride assayOrdered By: Kvng Acuña on 01-05-2025 Chloride [Moles/Vol] 101 mmol/L 98-108 [facility] Eosinophil percentageOrdered By: Hill Acuña on 01-05-2025 Eosinophils/100 WBC (Bld) 5.1 % High 0-5 [facility] Erythrocyte distribution wid th ratioOrdered By: Hill Acuña on 01-05-2025 Erythrocyte distribution width (RBC) [Ratio] 16.4 % High 11.6-14.6 [facility] Erythrocyte distribution wid th standard deviationOrdered By: Hill Acuña on 01-05-2025 Erythrocyte distribution width (RBC) [Ratio] 51.8 fl High 35.1-43.9 [facility] Glomerular filtration rate ( GFR) estimation/1.73 sq m using serum, plasma, or whole bOrdered By: Hill Acuña on 01-05-2025 GFR/1.73 sq M.predicted among non-blacks MDRD (S/P/Bld) [Vol rate/Area] 92 mL/min/{1.73_m2} >60 [facility] Gl[facility] at [facility] deOrdered By: Hill Acuña on 01-05-2025 Glucose [Mass/Vol] 163 mg/dL High 74-106 [facility] Glucose [Mass/Vol] 191 mg/dL High 74-106 [facility] Hematocrit Auto (Bld) [Volum e fraction]Ordered By: Hill Acuña on 01-05-2025 Hematocrit (Bld) [Volume fraction] 22.3 % Low 40-54 [facility] Hemoglobin measurementOrdere d By: Hill Acuña on 01-05-2025 Hemoglobin (Bld) [Mass/Vol] 7.5 g/dL Low 13.0-16.5 [facility] Immature granulocytes/100 WB C Auto (Bld)Ordered By: Hill Acuña on 01-05-2025 Immature granulocytes/100 WBC (Bld) 0.400 % 0.0-0.9 [facility] MCV (mean corpuscular volume ) determinationOrdered By: Hill Acuña on 01-05-2025 MCV (RBC) [Entitic vol] 86.4 fL 80-94 [facility] Mean corpuscular hemoglobin (MCH) determinationOrdered By: Hill Acuña on 01-05-2025 MCH (RBC) [Entitic mass] 29.1 pg 27.0-32.0 [facility] Monocyte percentageOrdered B y: Hill Acuña on 01-05-2025 Monocytes/100 WBC (Bld) 11.6 % High 0-10 [facility] Neutrophil percentageOrdered By: iHll Acuña on 01-05-2025 Neutrophils/100 WBC (Bld) 69.1 % 47-70 [facility] Platelet countOrdered By: Kvng Acuña on 01-05-2025 Platelets (Bld) [#/Vol] 81 10*3/uL Low 150-450 [facility] Potassium measurement (mass/ volume)Ordered By: Hill Acuña on 01-05-2025 Potassium (Unsp spec) [Mass/Vol] 3.6 mmol/L 3.3-5.1 [facility] RBC Auto (Bld) [#/Vol]Ordere d By: Hill Acuña on 01-05-2025 RBC (Bld) [#/Vol] 2.58 10*6/uL Low 4.6-6.2 [facility] Serum creatinine measurement (mass/volume)Ordered By: Hill Acuña on 01-05-2025 Creatinine [Mass/Vol] 0.95 mg/dL 0.70-1.20 [facility] Serum glucose measurement (m ass/volume)Ordered By: Hill Acuña on 01-05-2025 Glucose [Mass/Vol] 356 mg/dL High 70-99 [facility] Serum or plasma calcium roosevelt urement (mass/volume)Ordered By: Hill Acuña on 01-05-2025 Calcium [Mass/Vol] 7.9 mg/dL 7.6-11.0 [facility] Serum or plasma urea nitroge n measurement (mass/volume)Ordered By: Hill Acuña on 01-05-2025 Urea nitrogen [Mass/Vol] 11 mg/dL 4-19 [facility] Sodium levelOrdered By: Paulino Acuña on 01-05-2025 Sodium [Moles/Vol] 128 mmol/L Low 133-145 [facility] White blood cell (WBC) count Ordered By: Hill Acuña on 01-05-2025 WBC (Bld) [#/Vol] 7.0 10*3/uL 4.4-11.0 [facility] Bilirubin, totalOrdered By: Hill Acuña on 01-04-2025 Bilirubin [Mass/Vol] 0.90 mg/dL 0.00-1.30 [facility] Blood manual differential co mment interpretation (narrative result)Ordered By: Hill Acuña on 01-04-2025 Manual differential comment Marco Antonio (Bld) [Interp] SCANNED [facility] Magnesium measurement (mass/ volume)Ordered By: Hill Acuña on 01-04-2025 Magnesium (Unsp spec) [Mass/Vol] 1.3 mg/dL Low 1.5-2.2 [facility] No Panel InformationOrdered By: Hill Acuña on 01-04-2025 54 U/L High <38 [facility] Serum globulin measurementOr dered By: Hill Acuña on 01-04-2025 Globulin (S) [Mass/Vol] 2.9 g/dL 2.2-4.2 [facility] Serum or plasma alanine thomas otransferase (ALT) measurementOrdered By: Hill Acuña on 01-04-2025 ALT [Catalytic activity/Vol] 26 U/L <47 [facility] Serum or plasma albumin roosevelt urement (mass/volume)Ordered By: Hill Acuña on 01-04-2025 Albumin [Mass/Vol] 2.4 g/dL Low 3.5-5.0 [facility] Serum or plasma albumin/glob ulin mass ratioOrdered By: Hill Acuña on 01-04-2025 Albumin/Globulin [Mass ratio] 0.9 {ratio} 0.9-2.4 [facility] Serum or plasma alkaline kendrick sphatase measurementOrdered By: Hill Acuña on 01-04-2025 ALP [Catalytic activity/Vol] 171 U/L High 40-129 [facility] Total proteinOrdered By: Hugo Acuña on 01-04-2025 Protein [Mass/Vol] 5.3 g/dL Low 5.9-8.4 [facility] Absolute lymphocyte countOrd ered By: Roddy Reeves on 01-02-2025 Lymphocytes Auto (Unsp spec) [#/Vol] 1.55 10*3/uL 0.83-4.51 [facility] Anion gap in Serum or Plasma Ordered By: Roddy Reeves on 01-02-2025 Anion gap [Moles/Vol] 17 mmol/L High 5-15 [facility] [place] Automated lymphocyte count a s percentage of total leukocytesOrdered By: Roddy Reeves on 01-02-2025 Lymphocytes/100 WBC Auto (Unsp spec) 12.2 % Low 19-41 [facility] BUN/creatinine ratioOrdered By: Roddy Reeves on 01-02-2025 Urea nitrogen/Creatinine [Mass ratio] 12.9 mg/mg 10-20 [facility] Basophil percentageOrdered B y: Roddy Reeves on 01-02-2025 Basophils/100 WBC (Bld) 0.4 % 0-1 [facility] Bilirubin Test strip Ql (U)O rdered By: Roddy Reeves on 01-02-2025 Bilirubin Ql (U) Negative Negative [facility] Bilirubin, totalOrdered By: Roddy Reeves on 01-02-2025 Bilirubin [Mass/Vol] 0.90 mg/dL 0.00-1.30 [facility] Carbon dioxide, total [Moles /volume] in Central venous bloodOrdered By: Roddy Reeves on 01-02-2025 CO2 [Moles/Vol] 19.6 mmol/L Low 21.0-32.0 [facility] Chloride assayOrdered By: Catrachito Reeves on 01-02-2025 Chloride [Moles/Vol] 95 mmol/L Low 98-108 [facility] Eosinophil percentageOrdered By: Roddy Reeves on 01-02-2025 Eosinophils/100 WBC (Bld) 6.9 % High 0-5 [facility] Erythrocyte distribution wid th ratioOrdered By: Roddy Reeves on 01-02-2025 Erythrocyte distribution width (RBC) [Ratio] 16.4 % High 11.6-14.6 [facility] Erythrocyte distribution wid th standard deviationOrdered By: Roddy Reeves on 01-02-2025 Erythrocyte distribution width (RBC) [Ratio] 51.1 fl High 35.1-43.9 [facility] Glomerular filtration rate ( GFR) estimation/1.73 sq m using serum, plasma, or whole bOrdered By: Roddy Reeves on 01-02-2025 GFR/1.73 sq M.predicted among non-blacks MDRD (S/P/Bld) [Vol rate/Area] 19 mL/min/{1.73_m2} Low >60 [facility] Hematocrit Auto (Bld) [Volum e fraction]Ordered By: Roddy Reeves on 01-02-2025 Hematocrit (Bld) [Volume fraction] 28.0 % Low 40-54 [facility] Hemoglobin measurementOrdere d By: Roddy Reeves on 01-02-2025 Hemoglobin (Bld) [Mass/Vol] 9.5 g/dL Low 13.0-16.5 [facility] Immature granulocytes/100 WB C Auto (Bld)Ordered By: Roddy Reeves on 01-02-2025 Immature granulocytes/100 WBC (Bld) 0.600 % 0.0-0.9 [facility] Ketones Test strip Ql (U)Ord ered By: Roddy Reeves on 01-02-2025 Ketones Ql (U) 5 mg/dl High Negative [facility] MCV (mean corpuscular volume ) determinationOrdered By: Roddy Reeves on 01-02-2025 MCV (RBC) [Entitic vol] 87.2 fL 80-94 [facility] Magnesium measurement (mass/ volume)Ordered By: Roddy Reeves on 01-02-2025 Magnesium (Unsp spec) [Mass/Vol] 2.0 mg/dL 1.5-2.2 [facility] Mean corpuscular hemoglobin (MCH) determinationOrdered By: Roddy Reeves on 01-02-2025 MCH (RBC) [Entitic mass] 29.6 pg 27.0-32.0 [facility] Monocyte percentageOrdered B y: Roddy Reeves on 01-02-2025 Monocytes/100 WBC (Bld) 11.9 % High 0-10 [facility] Mucus LM Ql (Urine sed)Order ed By: Roddy Reeves on 01-02-2025 Mucus Ql (Urine sed) 0 SEEN /hpf [facility] [place] Neutrophil percentageOrdered By: Roddy Reeves on 01-02-2025 Neutrophils/100 WBC (Bld) 68.0 % 47-70 [facility] Nitrite Test strip Ql (U)Ord ered By: Roddy Reeves on 01-02-2025 Nitrite Ql (U) Negative Negative [facility] No Panel InformationOrdered By: Roddy Reeves on 01-02-2025 37 U/L <38 [facility] Platelet countOrdered By: Catrachito Reeves on 01-02-2025 Platelets (Bld) [#/Vol] 171 10*3/uL 150-450 [facility] Potassium measurement (mass/ volume)Ordered By: Roddy Reeves on 01-02-2025 Potassium (Unsp spec) [Mass/Vol] 2.6 mmol/L Low 3.3-5.1 [facility] Protein Test strip Ql (U)Ord ered By: Roddy Reeves on 01-02-2025 Protein Ql (U) 100 mg/dl High Negative [facility] RBC Auto (Bld) [#/Vol]Ordere d By: Roddy Reeves on 01-02-2025 RBC (Bld) [#/Vol] 3.21 10*6/uL Low 4.6-6.2 [facility] Serum creatinine measurement (mass/volume)Ordered By: Roddy Reeves on 01-02-2025 Creatinine [Mass/Vol] 3.54 mg/dL High 0.70-1.20 [facility] [place] Serum globulin measurementOr dered By: Roddy Reeves on 01-02-2025 Globulin (S) [Mass/Vol] 3.4 g/dL 2.2-4.2 [facility] Serum glucose measurement (m ass/volume)Ordered By: Roddy Reeves on 01-02-2025 Glucose [Mass/Vol] 164 mg/dL High 70-99 [facility] Serum or plasma alanine thomas otransferase (ALT) measurementOrdered By: Roddy Reeves on 01-02-2025 ALT [Catalytic activity/Vol] 23 U/L <47 [facility] Serum or plasma albumin roosevelt urement (mass/volume)Ordered By: Roddy Reeves on 01-02-2025 Albumin [Mass/Vol] 2.8 g/dL Low 3.5-5.0 [facility] Serum or plasma albumin/glob ulin mass ratioOrdered By: Roddy Reeves on 01-02-2025 Albumin/Globulin [Mass ratio] 0.8 {ratio} Low 0.9-2.4 [facility] Serum or plasma alkaline kendrick sphatase measurementOrdered By: Roddy Reeves on 01-02-2025 ALP [Catalytic activity/Vol] 191 U/L High 40-129 [facility] Serum or plasma calcium roosevelt urement (mass/volume)Ordered By: Roddy Reeves on 01-02-2025 Calcium [Mass/Vol] 9.0 mg/dL 7.6-11.0 [facility] Serum or plasma ethanol roosevelt urement (mass/volume)Ordered By: Roddy Reeves on 01-02-2025 Ethanol [Mass/Vol] mg/dL <10.1 [facility] Serum or plasma urea nitroge n measurement (mass/volume)Ordered By: Roddy Reeves on 01-02-2025 Urea nitrogen [Mass/Vol] 46 mg/dL High 4-19 [facility] Sodium levelOrdered By: Valentín Reeves on 01-02-2025 Sodium [Moles/Vol] 132 mmol/L Low 133-145 [facility] Squamous epithelial cells de tection in urine sediment by light microscopyOrdered By: Roddy Reeves on 01-02-2025 Epithelial cells.squamous LM Ql (Urine sed) 0 SEEN /hpf 0-5 [facility] Total proteinOrdered By: Zoila Reeves on 01-02-2025 Protein [Mass/Vol] 6.1 g/dL 5.9-8.4 [facility] Urine clarityOrdered By: Zoila Reeves on 01-02-2025 Clarity (U) Turbid Clear [facility] Urine color determinationOrd ered By: Roddy Reeves on 01-02-2025 Color (U) Red Yellow [facility] Urine cultureOrdered By: Zoila Reeves on 01-02-2025 Bacteria identified Cx Nom (U) Yeast, not Mary albicans Abnormal [facility] Urine glucose detectionOrder ed By: Roddy Reeves on 01-02-2025 Glucose Ql (U) Normal mg/dl Normal [facility] Urine leukocyte esterase det ection by dipstickOrdered By: Roddy Reeves on 01-02-2025 Leukocyte esterase Test strip Ql (U) 500 /ul High Negative [facility] Urine pHOrdered By: Roddy gonzalez on 01-02-2025 pH (U) 6.0 [pH] 5.0 - 8.0 [facility] Urine sediment bacteria coun t by microscopy (number/high power field)Ordered By: Roddy Reeves on 01-02-2025 Bacteria LM.HPF (Urine sed) [#/Area] 3 /[HPF] None Seen [facility] Urine specific gravity measu rementOrdered By: Roddy Reeves on 01-02-2025 Specific gravity (U) [Rel density] 1.015 1.002-1.030 [facility] Urine urobilinogen measureme ntOrdered By: Roddy Reeves on 01-02-2025 Urobilinogen Ql (U) Normal mg/dl Normal [facility] [place] Venous blood ammonia measure mentOrdered By: Roddy Reeves on 01-02-2025 Ammonia (P) [Moles/Vol] 40.4 umol/L 16-60 [facility] White blood cell (WBC) count Ordered By: Roddy Reeves on 01-02-2025 WBC (Bld) [#/Vol] 12.7 10*3/uL High 4.4-11.0 [facility] White blood cell countOrdere d By: Roddy Reeves on 01-02-2025 White blood cell count 25-50 SEEN /hpf 0-5 [facility] Absolute lymphocyte countOrd ered By: Mina Blood on 12-30-2024 Lymphocytes Auto (Unsp spec) [#/Vol] 1.31 10*3/uL 0.83-4.51 [facility] Anion gap in Serum or Plasma Ordered By: Mina Blood on 12-30-2024 Anion gap [Moles/Vol] 15 mmol/L 5-15 [facility] [place] Automated lymphocyte count a s percentage of total leukocytesOrdered By: Mina Blood on 12-30-2024 Lymphocytes/100 WBC Auto (Unsp spec) 14.0 % Low 19-41 [facility] BUN/creatinine ratioOrdered By: Mina Blood on 12-30-2024 Urea nitrogen/Creatinine [Mass ratio] 14.1 mg/mg 10-20 [facility] Basophil percentageOrdered B y: Mina Blood on 12-30-2024 Basophils/100 WBC (Bld) 0.4 % 0-1 [facility] Bilirubin Test strip Ql (U)O rdered By: Mina Blood on 12-30-2024 Bilirubin Ql (U) Negative Negative [facility] Carbon dioxide, total [Moles /volume] in Central venous bloodOrdered By: Mina Blood on 12-30-2024 CO2 [Moles/Vol] 22.1 mmol/L 21.0-32.0 [facility] Chloride assayOrdered By: Marcella Blood on 12-30-2024 Chloride [Moles/Vol] 91 mmol/L Low 98-108 [facility] Eosinophil percentageOrdered By: Mina Blood on 12-30-2024 Eosinophils/100 WBC (Bld) 6.2 % High 0-5 [facility] Erythrocyte distribution wid th ratioOrdered By: Mina Blood on 12-30-2024 Erythrocyte distribution width (RBC) [Ratio] 16.1 % High 11.6-14.6 [facility] Erythrocyte distribution wid th standard deviationOrdered By: Mina Blood on 12-30-2024 Erythrocyte distribution width (RBC) [Ratio] 50.9 fl High 35.1-43.9 [facility] Glomerular filtration rate ( GFR) estimation/1.73 sq m using serum, plasma, or whole bOrdered By: Mina Blood on 12-30-2024 GFR/1.73 sq M.predicted among non-blacks MDRD (S/P/Bld) [Vol rate/Area] 37 mL/min/{1.73_m2} Low >60 [facility]: Mina Blood on 12-30-2024 Glucose [Mass/Vol] 453 mg/dL High 74-106 [facility] Hematocrit Auto (Bld) [Volum e fraction]Ordered By: Mina Blood on 12-30-2024 Hematocrit (Bld) [Volume fraction] 25.8 % Low 40-54 [facility] Hemoglobin measurementOrdere d By: Mina Blood on 12-30-2024 Hemoglobin (Bld) [Mass/Vol] 8.7 g/dL Low 13.0-16.5 [facility] Immature granulocytes/100 WB C Auto (Bld)Ordered By: Mina Blood on 12-30-2024 Immature granulocytes/100 WBC (Bld) 0.600 % 0.0-0.9 [facility] Ketones Test strip Ql (U)Ord ered By: Mina Blood on 12-30-2024 Ketones Ql (U) Negative Negative [facility] MCV (mean corpuscular volume ) determinationOrdered By: Mina Blood on 12-30-2024 MCV (RBC) [Entitic vol] 88.1 fL 80-94 [facility] Magnesium measurement (mass/ volume)Ordered By: Mina Blood on 12-30-2024 Magnesium (Unsp spec) [Mass/Vol] 1.3 mg/dL Low 1.5-2.2 [facility] Mean corpuscular hemoglobin (MCH) determinationOrdered By: Mina Blood on 12-30-2024 MCH (RBC) [Entitic mass] 29.7 pg 27.0-32.0 [facility] Monocyte percentageOrdered B y: Mina Blood on 12-30-2024 Monocytes/100 WBC (Bld) 9.1 % 0-10 [facility] Mucus LM Ql (Urine sed)Order ed By: Mina Blood on 12-30-2024 Mucus Ql (Urine sed) 0 SEEN /hpf [facility] [place] Neutrophil percentageOrdered By: Mina Blood on 12-30-2024 Neutrophils/100 WBC (Bld) 69.7 % 47-70 [facility] Nitrite Test strip Ql (U)Ord ered By: Mina Blood on 12-30-2024 Nitrite Ql (U) Negative Negative [facility] Platelet countOrdered By: Marcella Blood on 12-30-2024 Platelets (Bld) [#/Vol] 131 10*3/uL Low 150-450 [facility] Potassium measurement (mass/ volume)Ordered By: Mina Blood on 12-30-2024 Potassium (Unsp spec) [Mass/Vol] 3.2 mmol/L Low 3.3-5.1 [facility] Protein Test strip Ql (U)Ord ered By: Mina Blood on 12-30-2024 Protein Ql (U) 100 mg/dl High Negative [facility] RBC Auto (Bld) [#/Vol]Ordere d By: Mina Blood on 12-30-2024 RBC (Bld) [#/Vol] 2.93 10*6/uL Low 4.6-6.2 [facility] Serum creatinine measurement (mass/volume)Ordered By: Mina Blood on 12-30-2024 Creatinine [Mass/Vol] 2.05 mg/dL High 0.70-1.20 [facility] [place] Serum glucose measurement (m ass/volume)Ordered By: Mina Blood on 12-30-2024 Glucose [Mass/Vol] 608 mg/dL High 70-99 [facility] Serum or plasma calcium roosevelt urement (mass/volume)Ordered By: Mina Blood on 12-30-2024 Calcium [Mass/Vol] 9.1 mg/dL 7.6-11.0 [facility] Serum or plasma urea nitroge n measurement (mass/volume)Ordered By: Mina Blood on 12-30-2024 Urea nitrogen [Mass/Vol] 29 mg/dL High 4-19 [facility] Sodium levelOrdered By: Magen Blood on 12-30-2024 Sodium [Moles/Vol] 128 mmol/L Low 133-145 [facility] Squamous epithelial cells de tection in urine sediment by light microscopyOrdered By: Mina Blood on 12-30-2024 Epithelial cells.squamous LM Ql (Urine sed) 0-5 SEEN /hpf 0-5 [facility] Transitional cells detection in urine sediment by light microscopyOrdered By: Mina Blood on 12-30-2024 Transitional cells LM Ql (Urine sed) 0-5 SEEN /hpf 0-5 [facility] Troponin T.cardiac [Mass/vol ume] in Serum or Plasma by High sensitivity methodOrdered By: Mina Blood on 12-30-2024 Troponin T.cardiac High sensitivity method [Mass/Vol] 20 ng/L <22 [facility] Troponin T.cardiac High sensitivity method [Mass/Vol] 19 ng/L <22 [facility] Urine clarityOrdered By: Ever Blood on 12-30-2024 Clarity (U) Cloudy Clear [facility] Urine color determinationOrd ered By: Mina Blood on 12-30-2024 Color (U) Lexis Yellow [facility] Urine cultureOrdered By: Ever Blood on 12-30-2024 Bacteria identified Cx Nom (U) GPC Poss Enterococcus sp Abnormal [facility] Bacteria identified Cx Nom (U) Positive Abnormal [facility] Urine glucose detectionOrder ed By: Mina Blood on 12-30-2024 Glucose Ql (U) 1000 mg/dl High Normal [facility] Urine leukocyte esterase det ection by dipstickOrdered By: Mina Blood on 12-30-2024 Leukocyte esterase Test strip Ql (U) 500 /ul High Negative [facility] Urine pHOrdered By: Mina ferrer on 12-30-2024 pH (U) 6.5 [pH] 5.0 - 8.0 [facility] Urine sediment bacteria coun t by microscopy (number/high power field)Ordered By: Mina Blood on 12-30-2024 Bacteria LM.HPF (Urine sed) [#/Area] 1 /[HPF] None Seen [facility] Urine specific gravity measu rementOrdered By: Mina Blood on 12-30-2024 Specific gravity (U) [Rel density] 1.010 1.002-1.030 [facility] Urine urobilinogen measureme ntOrdered By: Mina Blood on 12-30-2024 Urobilinogen Ql (U) Normal mg/dl Normal [facility] [place] White blood cell (WBC) count Ordered By: Mina Blood on 12-30-2024 WBC (Bld) [#/Vol] 9.4 10*3/uL 4.4-11.0 [facility] White blood cell countOrdere d By: Mina Blood on 12-30-2024 White blood cell count >100 SEEN /hpf 0-5 [facility] Absolute lymphocyte countOrd ered By: Boone Carvajal on 12-26-2024 Lymphocytes Auto (Unsp spec) [#/Vol] 1.69 10*3/uL 0.83-4.51 [facility] Activated partial thrombopla stin time (aPTT) in platelet poor plasma by coagulation aOrdered By: Boone Carvajal on 12-26-2024 aPTT Coag (PPP) [Time] 36.3 s High 24.1-36.2 [facility] Anion gap in Serum or Plasma Ordered By: Boone Carvajal on 12-26-2024 Anion gap [Moles/Vol] 14 mmol/L 5-15 [facility] [place] Automated lymphocyte count a s percentage of total leukocytesOrdered By: Boone Carvajal on 12-26-2024 Lymphocytes/100 WBC Auto (Unsp spec) 15.3 % Low 19-41 [facility] BUN/creatinine ratioOrdered By: Boone Carvajal on 12-26-2024 Urea nitrogen/Creatinine [Mass ratio] 10.3 mg/mg 10-20 [facility] Basophil percentageOrdered B y: Boone Carvajal on 12-26-2024 Basophils/100 WBC (Bld) 0.5 % 0-1 [facility] Beta-hydroxybutyrateOrdered By: Boone Carvajal on 12-26-2024 Beta hydroxybutyrate [Mass/Vol] 0.1 mmol/L 0.0-0.3 [facility] Bilirubin Test strip Ql (U)O rdered By: Boone Carvajal on 12-26-2024 Bilirubin Ql (U) Negative Negative [facility] Bilirubin, totalOrdered By: Boone Carvajal on 12-26-2024 Bilirubin [Mass/Vol] 1.04 mg/dL 0.00-1.30 [facility] Carbon dioxide, total [Moles /volume] in Central venous bloodOrdered By: Boone Carvajal on 12-26-2024 CO2 [Moles/Vol] 20.4 mmol/L Low 21.0-32.0 [facility] Chloride assayOrdered By: Hunter Carvajal on 12-26-2024 Chloride [Moles/Vol] 100 mmol/L 98-108 [facility] Eosinophil percentageOrdered By: Boone Carvajal on 12-26-2024 Eosinophils/100 WBC (Bld) 5.8 % High 0-5 [facility] Erythrocyte distribution wid th ratioOrdered By: Boone Carvajal on 12-26-2024 Erythrocyte distribution width (RBC) [Ratio] 16.3 % High 11.6-14.6 [facility] Erythrocyte distribution wid th standard deviationOrdered By: Boone Carvajal on 12-26-2024 Erythrocyte distribution width (RBC) [Ratio] 54.4 fl High 35.1-43.9 [facility] Glomerular filtration rate ( GFR) estimation/1.73 sq m using serum, plasma, or whole bOrdered By: Boone Carvajal on 12-26-2024 GFR/1.73 sq M.predicted among non-blacks MDRD (S/P/Bld) [Vol rate/Area] 30 mL/min/{1.73_m2} Low >60 [facility] Hematocrit Auto (Bld) [Volum e fraction]Ordered By: Boone Carvajal on 12-26-2024 Hematocrit (Bld) [Volume fraction] 29.6 % Low 40-54 [facility] Hemoglobin measurementOrdere d By: Boone Carvajal on 12-26-2024 Hemoglobin (Bld) [Mass/Vol] 9.6 g/dL Low 13.0-16.5 [facility] Immature granulocytes/100 WB C Auto (Bld)Ordered By: Boone Carvajal on 12-26-2024 Immature granulocytes/100 WBC (Bld) 0.500 % 0.0-0.9 [facility] Ketones Test strip Ql (U)Ord ered By: Boone Carvajal on 12-26-2024 Ketones Ql (U) 5 mg/dl High Negative [facility] MCV (mean corpuscular volume ) determinationOrdered By: Boone Carvajal on 12-26-2024 MCV (RBC) [Entitic vol] 90.8 fL 80-94 [facility] Mean corpuscular hemoglobin (MCH) determinationOrdered By: Boone Carvajal on 12-26-2024 MCH (RBC) [Entitic mass] 29.4 pg 27.0-32.0 [facility] Monocyte percentageOrdered B y: Boone Carvajal on 12-26-2024 Monocytes/100 WBC (Bld) 7.4 % 0-10 [facility] Mucus LM Ql (Urine sed)Order ed By: Boone Carvajal on 12-26-2024 Mucus Ql (Urine sed) 0 SEEN /hpf [facility] [place] Neutrophil percentageOrdered By: Boone Carvajal on 12-26-2024 Neutrophils/100 WBC (Bld) 70.5 % High 47-70 [facility] Nitrite Test strip Ql (U)Ord ered By: Boone Carvajal on 12-26-2024 Nitrite Ql (U) Negative Negative [facility] No Panel InformationOrdered By: Boone Carvajal on 12-26-2024 58 U/L High <38 [facility] Platelet countOrdered By: Hunter Carvajal on 12-26-2024 Platelets (Bld) [#/Vol] 139 10*3/uL Low 150-450 [facility] Potassium measurement (mass/ volume)Ordered By: Boone Carvajal on 12-26-2024 Potassium (Unsp spec) [Mass/Vol] 3.5 mmol/L 3.3-5.1 [facility] Protein Test strip Ql (U)Ord ered By: Boone Carvajal on 12-26-2024 Protein Ql (U) 500 mg/dl High Negative [facility] Prothrombin timeOrdered By: Boone Carvajal on 12-26-2024 PT Coag (PPP) [Time] 18.5 s High 11.7-14.9 [facility] RBC Auto (Bld) [#/Vol]Ordere d By: Boone Carvajal on 12-26-2024 RBC (Bld) [#/Vol] 3.26 10*6/uL Low 4.6-6.2 [facility] Serum creatinine measurement (mass/volume)Ordered By: Boone Carvajal on 12-26-2024 Creatinine [Mass/Vol] 2.42 mg/dL High 0.70-1.20 [facility] [place] Serum globulin measurementOr dered By: Boone Carvajal on 12-26-2024 Globulin (S) [Mass/Vol] 3.5 g/dL 2.2-4.2 [facility] Serum glucose measurement (m ass/volume)Ordered By: Boone Carvajal on 12-26-2024 Glucose [Mass/Vol] 386 mg/dL High 70-99 [facility] Serum or plasma alanine thomas otransferase (ALT) measurementOrdered By: Boone Carvajal on 12-26-2024 ALT [Catalytic activity/Vol] 27 U/L <47 [facility] Serum or plasma albumin roosevelt urement (mass/volume)Ordered By: Boone Carvajal on 12-26-2024 Albumin [Mass/Vol] 2.8 g/dL Low 3.5-5.0 [facility] Serum or plasma albumin/glob ulin mass ratioOrdered By: Boone Carvajal on 12-26-2024 Albumin/Globulin [Mass ratio] 0.8 {ratio} Low 0.9-2.4 [facility] Serum or plasma alkaline kendrick sphatase measurementOrdered By: Boone Carvajal on 12-26-2024 ALP [Catalytic activity/Vol] 207 U/L High 40-129 [facility] Serum or plasma calcium roosevelt urement (mass/volume)Ordered By: Boone Carvaajl on 12-26-2024 Calcium [Mass/Vol] 8.9 mg/dL 7.6-11.0 [facility] Serum or plasma urea nitroge n measurement (mass/volume)Ordered By: Boone Carvajal on 12-26-2024 Urea nitrogen [Mass/Vol] 25 mg/dL High 4-19 [facility] Sodium levelOrdered By: Boone Carvajal on 12-26-2024 Sodium [Moles/Vol] 135 mmol/L 133-145 [facility] Squamous epithelial cells de tection in urine sediment by light microscopyOrdered By: Boone Carvajal on 12-26-2024 Epithelial cells.squamous LM Ql (Urine sed) 0 SEEN /hpf 0-5 [facility] Total proteinOrdered By: Danita Carvajal on 12-26-2024 Protein [Mass/Vol] 6.3 g/dL 5.9-8.4 [facility] Urine clarityOrdered By: Danita Carvajal on 12-26-2024 Clarity (U) Cloudy Clear [facility] Urine color determinationOrd ered By: Boone Carvajal on 12-26-2024 Color (U) Lexis Yellow [facility] Urine cultureOrdered By: Danita Carvajal on 12-26-2024 Bacteria identified Cx Nom (U) Enterococcus faecalis Abnormal 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 Urine glucose detectionOrder ed By: Boone Carvajal on 12-26-2024 Glucose Ql (U) Normal mg/dl Normal [facility] Urine leukocyte esterase det ection by dipstickOrdered By: Boone Carvajal on 12-26-2024 Leukocyte esterase Test strip Ql (U) 500 /ul High Negative [facility] Urine pHOrdered By: Boone romo on 12-26-2024 pH (U) 6.0 [pH] 5.0 - 8.0 [facility] Urine sediment bacteria coun t by microscopy (number/high power field)Ordered By: Boone Carvajal on 12-26-2024 Bacteria LM.HPF (Urine sed) [#/Area] 0 /[HPF] None Seen [facility] Urine specific gravity measu rementOrdered By: Boone Carvajal on 12-26-2024 Specific gravity (U) [Rel density] 1.015 1.002-1.030 [facility] Urine urobilinogen measureme ntOrdered By: Boone Carvajal on 12-26-2024 Urobilinogen Ql (U) Normal mg/dl Normal [facility] [place] Venous blood ammonia measure mentOrdered By: Boone Carvajal on 12-26-2024 Ammonia (P) [Moles/Vol] 114.0 umol/L High 16-60 [facility] White blood cell (WBC) count Ordered By: Boone Carvajal on 12-26-2024 WBC (Bld) [#/Vol] 11.0 10*3/uL 4.4-11.0 [facility] White blood cell countOrdere d By: Boone Carvajal on 12-26-2024 White blood cell count 25-50 SEEN /hpf 0-5 [facility] Absolute lymphocyte countOrd ered By: Josy Elias on 12-07-2024 Lymphocytes Auto (Unsp spec) [#/Vol] 1.71 10*3/uL 0.83-4.51 [facility] Anion gap in Serum or Plasma Ordered By: Josy Elias on 12-07-2024 Anion gap [Moles/Vol] 12 mmol/L 5-15 [facility] [place] Automated lymphocyte count a s percentage of total leukocytesOrdered By: Josy Elias on 12-07-2024 Lymphocytes/100 WBC Auto (Unsp spec) 18.4 % Low 19-41 [facility] BUN/creatinine ratioOrdered By: Josy Elias on 12-07-2024 Urea nitrogen/Creatinine [Mass ratio] 10.0 mg/mg 10-20 [facility] Basophil percentageOrdered B y: Josy Elias on 12-07-2024 Basophils/100 WBC (Bld) 0.6 % 0-1 [facility] Bilirubin, totalOrdered By: Josy Elias on 12-07-2024 Bilirubin [Mass/Vol] 1.21 mg/dL 0.00-1.30 [facility] CNPTOUTREACHon 12-07-2024 CNPTOUTREACH Normal [facility] Carbon dioxide, total [Moles /volume] in Central venous bloodOrdered By: Josy Elias on 12-07-2024 CO2 [Moles/Vol] 20.0 mmol/L Low 21.0-32.0 [facility] Chloride assayOrdered By: Monica Elias on 12-07-2024 Chloride [Moles/Vol] 103 mmol/L 98-108 [facility] Eosinophil percentageOrdered By: Josy Elias on 12-07-2024 Eosinophils/100 WBC (Bld) 5.1 % High 0-5 [facility] Erythrocyte distribution wid th ratioOrdered By: Josy Elias on 12-07-2024 Erythrocyte distribution width (RBC) [Ratio] 16.9 % High 11.6-14.6 [facility] Erythrocyte distribution wid th standard deviationOrdered By: Josy Elias on 12-07-2024 Erythrocyte distribution width (RBC) [Ratio] 57.4 fl High 35.1-43.9 [facility] Gamma glutamyl transferase ( GGT) measurementOrdered By: Josy Elias on 12-07-2024 Amylase [Catalytic activity/Vol] 103 U/L High 0-65 [facility] Glomerular filtration rate ( GFR) estimation/1.73 sq m using serum, plasma, or whole bOrdered By: Josy Elias on 12-07-2024 GFR/1.73 sq M.predicted among non-blacks MDRD (S/P/Bld) [Vol rate/Area] 44 mL/min/{1.73_m2} Low >60 [facility] Hematocrit Auto (Bld) [Volum e fraction]Ordered By: Josydominique Elias on 12-07-2024 Hematocrit (Bld) [Volume fraction] 26.2 % Low 40-54 [facility] Hemoglobin A1c percentageOrd ered By: Josydominique Elias on 12-07-2024 HbA1c (Bld) [Mass fraction] 7.2 % High <5.7 [facility] Hemoglobin measurementOrdere d By: Josy Elias on 12-07-2024 Hemoglobin (Bld) [Mass/Vol] 8.5 g/dL Low 13.0-16.5 [facility] Immature granulocytes/100 WB C Auto (Bld)Ordered By: Josy Elias on 12-07-2024 Immature granulocytes/100 WBC (Bld) 0.300 % 0.0-0.9 [facility] MCV (mean corpuscular volume ) determinationOrdered By: Josy Elias on 12-07-2024 MCV (RBC) [Entitic vol] 93.2 fL 80-94 [facility] Mean corpuscular hemoglobin (MCH) determinationOrdered By: Josydominique Elias on 12-07-2024 MCH (RBC) [Entitic mass] 30.2 pg 27.0-32.0 [facility] Monocyte percentageOrdered B y: Josy Elias on 12-07-2024 Monocytes/100 WBC (Bld) 12.1 % High 0-10 [facility] Neutrophil percentageOrdered By: Josydominique Elias on 12-07-2024 Neutrophils/100 WBC (Bld) 63.5 % 47-70 [facility] No Panel InformationOrdered By: Josy Elias on 12-07-2024 37 U/L <38 [facility] Platelet countOrdered By: Monica Elias on 12-07-2024 Platelets (Bld) [#/Vol] 145 10*3/uL Low 150-450 [facility] Potassium measurement (mass/ volume)Ordered By: Josy Elias on 12-07-2024 Potassium (Unsp spec) [Mass/Vol] 3.3 mmol/L 3.3-5.1 [facility] RBC Auto (Bld) [#/Vol]Ordere d By: Josy Elias on 12-07-2024 RBC (Bld) [#/Vol] 2.81 10*6/uL Low 4.6-6.2 [facility] Serum creatinine measurement (mass/volume)Ordered By: Josy Elias on 12-07-2024 Creatinine [Mass/Vol] 1.78 mg/dL High 0.70-1.20 [facility] Serum globulin measurementOr dered By: Josy Elias on 12-07-2024 Globulin (S) [Mass/Vol] 2.9 g/dL 2.2-4.2 [facility] Serum glucose measurement (m ass/volume)Ordered By: Josy Elias on 12-07-2024 Glucose [Mass/Vol] 185 mg/dL High 70-99 [facility] Serum or plasma alanine thomas otransferase (ALT) measurementOrdered By: Josy Elias on 12-07-2024 ALT [Catalytic activity/Vol] 24 U/L <47 [facility] Serum or plasma albumin roosevelt urement (mass/volume)Ordered By: Josy Elias on 12-07-2024 Albumin [Mass/Vol] 2.6 g/dL Low 3.5-5.0 [facility] Serum or plasma albumin/glob ulin mass ratioOrdered By: Josy Elias on 12-07-2024 Albumin/Globulin [Mass ratio] 0.9 {ratio} 0.9-2.4 [facility] Serum or plasma alkaline kendrick sphatase measurementOrdered By: Josy Elias on 12-07-2024 ALP [Catalytic activity/Vol] 241 U/L High 40-129 [facility] Serum or plasma calcium roosevelt urement (mass/volume)Ordered By: Josy Elias on 12-07-2024 Calcium [Mass/Vol] 8.2 mg/dL 7.6-11.0 [facility] Serum or plasma urea nitroge n measurement (mass/volume)Ordered By: Josy Elias on 12-07-2024 Urea nitrogen [Mass/Vol] 18 mg/dL 4-19 [facility] Sodium levelOrdered By: Terrance Elias on 12-07-2024 Sodium [Moles/Vol] 136 mmol/L 133-145 [facility] Total proteinOrdered By: Paul Elias on 12-07-2024 Protein [Mass/Vol] 5.5 g/dL Low 5.9-8.4 [facility] White blood cell (WBC) count Ordered By: Josy Elias on 12-07-2024 WBC (Bld) [#/Vol] 9.3 10*3/uL 4.4-11.0 [facility] Absolute lymphocyte countOrd ered By: Hill Acuña on 12-02-2024 Lymphocytes Auto (Unsp spec) [#/Vol] 0.92 10*3/uL 0.83-4.51 [facility] Anion gap in Serum or Plasma Ordered By: Hill Acuña on 12-02-2024 Anion gap [Moles/Vol] 7 mmol/L 5-15 [facility] Automated lymphocyte count a s percentage of total leukocytesOrdered By: Hill Acuña on 12-02-2024 Lymphocytes/100 WBC Auto (Unsp spec) 15.7 % Low 19-41 [facility] BUN/creatinine ratioOrdered By: Hill Acuña on 12-02-2024 Urea nitrogen/Creatinine [Mass ratio] 8.1 mg/mg Low 10-20 [facility] Basophil percentageOrdered B y: Hill Acuña on 12-02-2024 Basophils/100 WBC (Bld) 0.5 % 0-1 [facility] Bilirubin, totalOrdered By: Hill Acuña on 12-02-2024 Bilirubin [Mass/Vol] 1.07 mg/dL 0.00-1.30 [facility] Carbon dioxide, total [Moles /volume] in Central venous bloodOrdered By: Hill Acuña on 12-02-2024 CO2 [Moles/Vol] 21.0 mmol/L 21.0-32.0 [facility] Chloride assayOrdered By: Kvng Acuña on 12-02-2024 Chloride [Moles/Vol] 104 mmol/L 98-108 [facility] Eosinophil percentageOrdered By: Hill Acuña on 12-02-2024 Eosinophils/100 WBC (Bld) 3.6 % 0-5 [facility] Erythrocyte distribution wid th ratioOrdered By: Hill Acuña on 12-02-2024 Erythrocyte distribution width (RBC) [Ratio] 16.2 % High 11.6-14.6 [facility] Erythrocyte distribution wid th standard deviationOrdered By: Hill Acuña on 12-02-2024 Erythrocyte distribution width (RBC) [Ratio] 53.0 fl High 35.1-43.9 [facility] Glomerular filtration rate ( GFR) estimation/1.73 sq m using serum, plasma, or whole bOrdered By: Hill Acuña on 12-02-2024 GFR/1.73 sq M.predicted among non-blacks MDRD (S/P/Bld) [Vol rate/Area] 98 mL/min/{1.73_m2} >60 [facility] deOrdered By: Hill Acuña on 12-02-2024 Glucose [Mass/Vol] 259 mg/dL High 74-106 [facility] Hematocrit Auto (Bld) [Volum e fraction]Ordered By: Hill Acuña on 12-02-2024 Hematocrit (Bld) [Volume fraction] 21.9 % Low 40-54 [facility] Hemoglobin measurementOrdere d By: Hill Acuña on 12-02-2024 Hemoglobin (Bld) [Mass/Vol] 7.2 g/dL Low 13.0-16.5 [facility] Immature granulocytes/100 WB C Auto (Bld)Ordered By: Hill Acuña on 12-02-2024 Immature granulocytes/100 WBC (Bld) 0.500 % 0.0-0.9 [facility] MCV (mean corpuscular volume ) determinationOrdered By: Hill Acuña on 12-02-2024 MCV (RBC) [Entitic vol] 89.8 fL 80-94 [facility] Magnesium measurement (mass/ volume)Ordered By: Hill Acuña on 12-02-2024 Magnesium (Unsp spec) [Mass/Vol] 1.6 mg/dL 1.5-2.2 [facility] Mean corpuscular hemoglobin (MCH) determinationOrdered By: Hill Acuña on 12-02-2024 MCH (RBC) [Entitic mass] 29.5 pg 27.0-32.0 [facility] Monocyte percentageOrdered B y: Hill Acuña on 12-02-2024 Monocytes/100 WBC (Bld) 13.3 % High 0-10 [facility] Neutrophil percentageOrdered By: Hill Acuña on 12-02-2024 Neutrophils/100 WBC (Bld) 66.4 % 47-70 [facility] No Panel InformationOrdered By: Hill Acuña on 12-02-2024 58 U/L High <38 [facility] Platelet countOrdered By: Kvng Acuña on 12-02-2024 Platelets (Bld) [#/Vol] 100 10*3/uL Low 150-450 [facility] Potassium measurement (mass/ volume)Ordered By: Hill Acuña on 12-02-2024 Potassium (Unsp spec) [Mass/Vol] 3.8 mmol/L 3.3-5.1 [facility] RBC Auto (Bld) [#/Vol]Ordere d By: Hill Acuña on 12-02-2024 RBC (Bld) [#/Vol] 2.44 10*6/uL Low 4.6-6.2 [facility] Serum creatinine measurement (mass/volume)Ordered By: Hill Acuña on 12-02-2024 Creatinine [Mass/Vol] 0.90 mg/dL 0.70-1.20 [facility] Serum globulin measurementOr dered By: Hill Acuña on 12-02-2024 Globulin (S) [Mass/Vol] 2.6 g/dL 2.2-4.2 [facility] Serum glucose measurement (m ass/volume)Ordered By: Hill Acuña on 12-02-2024 Glucose [Mass/Vol] 221 mg/dL High 70-99 [facility] Serum or plasma alanine thomas otransferase (ALT) measurementOrdered By: Hill Acuña on 12-02-2024 ALT [Catalytic activity/Vol] 33 U/L <47 [facility] Serum or plasma albumin roosevelt urement (mass/volume)Ordered By: Hill Acuña on 12-02-2024 Albumin [Mass/Vol] 2.5 g/dL Low 3.5-5.0 [facility] Serum or plasma albumin/glob ulin mass ratioOrdered By: Hill Acuña on 12-02-2024 Albumin/Globulin [Mass ratio] 1.0 {ratio} 0.9-2.4 [facility] Serum or plasma alkaline kendrick sphatase measurementOrdered By: Hill Acuña on 12-02-2024 ALP [Catalytic activity/Vol] 219 U/L High 40-129 [facility] Serum or plasma calcium roosevelt urement (mass/volume)Ordered By: Hill Acuña on 12-02-2024 Calcium [Mass/Vol] 7.8 mg/dL 7.6-11.0 [facility] Serum or plasma urea nitroge n measurement (mass/volume)Ordered By: Hill Acuña on 12-02-2024 Urea nitrogen [Mass/Vol] 7 mg/dL 4-19 [facility] Sodium levelOrdered By: Paulino Acuña on 12-02-2024 Sodium [Moles/Vol] 132 mmol/L Low 133-145 [facility] Total proteinOrdered By: Hugo Acuña on 12-02-2024 Protein [Mass/Vol] 5.1 g/dL Low 5.9-8.4 [facility] Trough vancomycin levelOrder ed By: Maria Guadalupe Shore on 12-02-2024 Vancomycin trough [Mass/Vol] 19.6 ug/mL High 5.0-15.0 [facility] White blood cell (WBC) count Ordered By: Hill Acuña on 12-02-2024 WBC (Bld) [#/Vol] 5.9 10*3/uL 4.4-11.0 [facility] Platelet estimateOrdered By: Hill Acuña on 11-30-2024 Platelets LM Ql (Bld) [facility] Serum or plasma vancomycin m easurement (mass/volume)Ordered By: Kathie Powers on 11-30-2024 Vancomycin [Mass/Vol] 17.7 ug/mL High 0.0-15.0 [facility] Prothrombin timeOrdered By: Kathie Powers on 11-29-2024 PT Coag (PPP) [Time] 21.1 s High 11.7-14.9 [facility] Bilirubin Test strip Ql (U)O rdered By: Rachel Joiner on 11-28-2024 Bilirubin Ql (U) Negative Negative [facility] Bilirubin directOrdered By: Rachel Joiner on 11-28-2024 Bilirubin.direct [Mass/Vol] 0.72 mg/dL High 0.00-0.30 [facility] Ketones Test strip Ql (U)Ord ered By: Rachel Joiner on 11-28-2024 Ketones Ql (U) 5 mg/dl High Negative [facility] Mucus LM Ql (Urine sed)Order ed By: Rachel Joiner on 11-28-2024 Mucus Ql (Urine sed) 0 SEEN /hpf [facility] Nitrite Test strip Ql (U)Ord ered By: Rachel Joiner on 11-28-2024 Nitrite Ql (U) Positive High Negative [facility] Protein Test strip Ql (U)Ord ered By: Rachel Joiner on 11-28-2024 Protein Ql (U) 100 mg/dl High Negative [facility] Squamous epithelial cells de tection in urine sediment by light microscopyOrdered By: Rachel Joiner on 11-28-2024 Epithelial cells.squamous LM Ql (Urine sed) 0-5 SEEN /hpf 0-5 [facility] Urine clarityOrdered By: Shi Joiner on 11-28-2024 Clarity (U) Cloudy Clear [facility] Urine color determinationOrd ered By: Rachel Joiner on 11-28-2024 Color (U) Lexis Yellow [facility] Urine cultureOrdered By: Tyree Powers on 11-28-2024 Bacteria identified Cx Nom (U) ESBL Klebsiella pneumoniae pne Abnormal [facility] Urine glucose detectionOrder ed By: Rachel Joiner on 11-28-2024 Glucose Ql (U) Normal mg/dl Normal [facility] Urine leukocyte esterase det ection by dipstickOrdered By: Rachel Joiner on 11-28-2024 Leukocyte esterase Test strip Ql (U) 500 /ul High Negative [facility] Urine pHOrdered By: Rachel silva on 11-28-2024 pH (U) 6.5 [pH] 5.0 - 8.0 [facility] Urine sediment bacteria coun t by microscopy (number/high power field)Ordered By: Rachel Joiner on 11-28-2024 Bacteria LM.HPF (Urine sed) [#/Area] 1 /[HPF] None Seen [facility] Urine specific gravity measu rementOrdered By: Rachel Joiner on 11-28-2024 Specific gravity (U) [Rel density] 1.010 1.002-1.030 [facility] Urine urobilinogen measureme ntOrdered By: Rachel Joiner on 11-28-2024 Urobilinogen Ql (U) Normal mg/dl Normal [facility] Venous blood ammonia measure mentOrdered By: Rachel Joiner on 11-28-2024 Ammonia (P) [Moles/Vol] 68.4 umol/L High 16-60 [facility] White blood cell countOrdere d By: Rachel Joiner on 11-28-2024 White blood cell count 50-100 SEEN /hpf 0-5 [facility] Absolute lymphocyte countOrd ered By: Anurag Irene on 11-25-2024 Lymphocytes Auto (Unsp spec) [#/Vol] 0.92 10*3/uL 0.83-4.51 [facility] Anion gap in Serum or Plasma Ordered By: Anurag Irene on 11-25-2024 Anion gap [Moles/Vol] 8 mmol/L 5-15 [facility] [place] Automated lymphocyte count a s percentage of total leukocytesOrdered By: Anurag Irene on 11-25-2024 Lymphocytes/100 WBC Auto (Unsp spec) 16.7 % Low 19-41 [facility] BUN/creatinine ratioOrdered By: Anurag Irene on 11-25-2024 Urea nitrogen/Creatinine [Mass ratio] 9.2 mg/mg Low 10-20 [facility] Basophil percentageOrdered B y: Anurag Irene on 11-25-2024 Basophils/100 WBC (Bld) 0.4 % 0-1 [facility] Bilirubin, totalOrdered By: Anurag Irene on 11-25-2024 Bilirubin [Mass/Vol] 1.07 mg/dL 0.00-1.30 [facility] Carbon dioxide, total [Moles /volume] in Central venous bloodOrdered By: Anurag Irene on 11-25-2024 CO2 [Moles/Vol] 19.3 mmol/L Low 21.0-32.0 [facility] Chloride assayOrdered By: Francois Irene on 11-25-2024 Chloride [Moles/Vol] 108 mmol/L 98-108 [facility] Eosinophil percentageOrdered By: Anurag Irene on 11-25-2024 Eosinophils/100 WBC (Bld) 4.2 % 0-5 [facility] Erythrocyte distribution wid th ratioOrdered By: Anurag Irene on 11-25-2024 Erythrocyte distribution width (RBC) [Ratio] 15.8 % High 11.6-14.6 [facility] Erythrocyte distribution wid th standard deviationOrdered By: Anurag Irene on 11-25-2024 Erythrocyte distribution width (RBC) [Ratio] 52.9 fl High 35.1-43.9 [facility] Glomerular filtration rate ( GFR) estimation/1.73 sq m using serum, plasma, or whole bOrdered By: Anurag Irene on 11-25-2024 GFR/1.73 sq M.predicted among non-blacks MDRD (S/P/Bld) [Vol rate/Area] 100 mL/min/{1.73_m2} >60 [facility]: [facility]ag [facility] on 11-25-2024 Glucose [Mass/Vol] 222 mg/dL High 74-106 [facility] Hematocrit Auto (Bld) [Volum e fraction]Ordered By: Anurag Irene on 11-25-2024 Hematocrit (Bld) [Volume fraction] 21.5 % Low 40-54 [facility] Hemoglobin measurementOrdere d By: Anurag Irene on 11-25-2024 Hemoglobin (Bld) [Mass/Vol] 7.0 g/dL Low 13.0-16.5 [facility] Immature granulocytes/100 WB C Auto (Bld)Ordered By: Anurag Irene on 11-25-2024 Immature granulocytes/100 WBC (Bld) 0.400 % 0.0-0.9 [facility] MCV (mean corpuscular volume ) determinationOrdered By: Anurag Irene on 11-25-2024 MCV (RBC) [Entitic vol] 93.1 fL 80-94 [facility] Mean corpuscular hemoglobin (MCH) determinationOrdered By: Anurag Irene on 11-25-2024 MCH (RBC) [Entitic mass] 30.3 pg 27.0-32.0 [facility] Monocyte percentageOrdered B y: Anurag Irene on 11-25-2024 Monocytes/100 WBC (Bld) 12.7 % High 0-10 [facility] Neutrophil percentageOrdered By: Anurag Irene on 11-25-2024 Neutrophils/100 WBC (Bld) 65.6 % 47-70 [facility] No Panel InformationOrdered By: Anurag Irene on 11-25-2024 60 U/L High <38 [facility] Platelet countOrdered By: Francois Irene on 11-25-2024 Platelets (Bld) [#/Vol] 82 10*3/uL Low 150-450 [facility] Potassium measurement (mass/ volume)Ordered By: Anurag Irene on 11-25-2024 Potassium (Unsp spec) [Mass/Vol] 4.2 mmol/L 3.3-5.1 [facility] RBC Auto (Bld) [#/Vol]Ordere d By: Anurag Irene on 11-25-2024 RBC (Bld) [#/Vol] 2.31 10*6/uL Low 4.6-6.2 [facility] Serum creatinine measurement (mass/volume)Ordered By: Anurag Irene on 11-25-2024 Creatinine [Mass/Vol] 0.86 mg/dL 0.70-1.20 [facility] [place] Serum globulin measurementOr dered By: Anurag Irene on 11-25-2024 Globulin (S) [Mass/Vol] 2.2 g/dL 2.2-4.2 [facility] Serum glucose measurement (m ass/volume)Ordered By: Anurag Irene on 11-25-2024 Glucose [Mass/Vol] 179 mg/dL High 70-99 [facility] Serum or plasma alanine thomas otransferase (ALT) measurementOrdered By: Anurag Irene on 11-25-2024 ALT [Catalytic activity/Vol] 41 U/L <47 [facility] Serum or plasma albumin roosevelt urement (mass/volume)Ordered By: Anurag Irene on 11-25-2024 Albumin [Mass/Vol] 2.7 g/dL Low 3.5-5.0 [facility] Serum or plasma albumin/glob ulin mass ratioOrdered By: Anurag Irene on 11-25-2024 Albumin/Globulin [Mass ratio] 1.2 {ratio} 0.9-2.4 [facility] Serum or plasma alkaline kendrick sphatase measurementOrdered By: Anurag Irene on 11-25-2024 ALP [Catalytic activity/Vol] 168 U/L High 40-129 [facility] Serum or plasma calcium roosevelt urement (mass/volume)Ordered By: Anurag Irene on 11-25-2024 Calcium [Mass/Vol] 8.3 mg/dL 7.6-11.0 [facility] Serum or plasma urea nitroge n measurement (mass/volume)Ordered By: Anurag Irene on 11-25-2024 Urea nitrogen [Mass/Vol] 8 mg/dL 4-19 [facility] Sodium levelOrdered By: Marni Irene on 11-25-2024 Sodium [Moles/Vol] 135 mmol/L 133-145 [facility] Total proteinOrdered By: [place] Irene on 11-25-2024 Protein [Mass/Vol] 4.9 g/dL Low 5.9-8.4 [facility] White blood cell (WBC) count Ordered By: Anurag Irene on 11-25-2024 WBC (Bld) [#/Vol] 5.5 10*3/uL 4.4-11.0 [facility] Blood manual differential co mment interpretation (narrative result)Ordered By: Anurag Irene on 11-24-2024 Manual differential comment Marco Antonio (Bld) [Interp] SCANNED [facility] Platelet estimateOrdered By: Anurag Irene on 11-24-2024 Platelets LM Ql (Bld) MOD DEC ADEQ [facility] Prothrombin timeOrdered By: Anurag Irene on 11-24-2024 PT Coag (PPP) [Time] 22.6 s High 11.7-14.9 [facility] Bilirubin directOrdered By: Anurag Irene on 11-22-2024 Bilirubin.direct [Mass/Vol] 0.73 mg/dL High 0.00-0.30 [facility] ALP [Catalytic activity/Vol] Ordered By: Herberth Carlson on 11-21-2024 Serum or plasma alkaline phosphatase measurement 245 U/L High 40-129 [facility] ALT [Catalytic activity/Vol] Ordered By: Herberth Carlson on 11-21-2024 Serum or plasma alanine aminotransferase (ALT) measurement 61 U/L High <47 [facility] Absolute neutrophil countOrd ered By: Herberth Carlson on 11-21-2024 Absolute neutrophil count 6.5 X10^3/uL 2.0-7.7 [facility] Albumin [Mass/Vol]Ordered By : Herberth Carlson on 11-21-2024 Serum or plasma albumin measurement (mass/volume) 2.5 g/dL Low 3.5-5.0 [facility] Albumin/Globulin [Mass ratio ]Ordered By: Herberth Carlson on 11-21-2024 Serum or plasma albumin/globulin mass ratio 0.9 RATIO 0.9-2.4 [facility] Anion gap [Moles/Vol]Ordered By: Herberth Carlson on 11-21-2024 Anion gap in Serum or Plasma 11 5-15 [facility] BUN/creatinine ratioOrdered By: Herberth Carlson on 11-21-2024 BUN/creatinine ratio 19.1 RATIO 10-20 [facility] Bacteria LM.HPF (Urine sed) [#/Area]Ordered By: Herberth Carlson on 11-21-2024 Urine sediment bacteria count by microscopy (number/high power field) RARE /hpf None Seen [facility] Basophil percentageOrdered B y: Herberth Carlson on 11-21-2024 Basophil percentage 0.2 % 0-1 [facility] Bilirubin Test strip Ql (U)O rdered By: Herberth Carlson on 11-21-2024 Bilirubin Ql (U) Negative Negative [facility] Bilirubin, totalOrdered By: Herberth Carlson on 11-21-2024 Bilirubin, total 1.33 mg/dL High 0.00-1.30 [facility] Calcium [Mass/Vol]Ordered By : Herberth Carlson on 11-21-2024 Serum or plasma calcium measurement (mass/volume) 8.7 mg/dL 7.6-11.0 [facility] Carbon dioxide, total [Moles /volume] in Central venous bloodOrdered By: Herberth Carlson on 11-21-2024 Carbon dioxide, total [Moles/volume] in Central venous blood 17.5 mmol/L Low 21.0-32.0 [facility] Chloride assayOrdered By: Kaylyn Carlson on 11-21-2024 Chloride assay 103 mmol/L 98-108 [facility] Clarity (U)Ordered By: Ashish Carlson on 11-21-2024 Urine clarity Sl Cldy Clear [facility] Color (U)Ordered By: Herberth Carlson on 11-21-2024 Urine color determination Yellow Yellow [facility] Creatinine [Mass/Vol]Ordered By: Herberth Carlson on 11-21-2024 Serum creatinine measurement (mass/volume) 1.49 mg/dL High 0.70-1.20 [facility] Eosinophil percentageOrdered By: Herberth Carlson on 11-21-2024 Eosinophil percentage 7.2 % High 0-5 [facility] Erythrocyte distribution wid th (RBC) [Ratio]Ordered By: Herberth Carlson on 11-21-2024 Erythrocyte distribution width ratio 16.8 % High 11.6-14.6 [facility] Erythrocyte distribution width standard deviation 57.1 fl High 35.1-43.9 [facility] Estimation of creatinine gregorio aranceOrdered By: Herberth Carlson on 11-21-2024 Estimation of creatinine clearance 64.65 ml/min 50-250 [facility] GFR/1.73 sq M.predicted niki g non-blacks MDRD (S/P/Bld) [Vol rate/Area]Ordered By: Herberth Carlson on 11-21-2024 Glomerular filtration rate (GFR) estimation/1.73 sq m using serum, plasma, or whole b 54 Low >60 [facility] Glucose [Mass/Vol]Ordered By : Herberth Carlson on 11-21-2024 Serum glucose measurement (mass/volume) 188 mg/dL High 70-99 [facility] Hematocrit Auto (Bld) [Volum e fraction]Ordered By: Herberth Carlson on 11-21-2024 Automated blood hematocrit (percentage) 24.6 % Low 40-54 [facility] Hemoglobin measurementOrdere d By: Herberth Carlson on 11-21-2024 Hemoglobin measurement 8.3 g/dL Low 13.0-16.5 [facility] Immature granulocytes/100 WB C Auto (Bld)Ordered By: Herberth Carlson on 11-21-2024 Automated immature granulocyte percentage 0.800 % 0.0-0.9 [facility] International normalized rat io (INR) calculationOrdered By: Herberth Carlson on 11-21-2024 International normalized ratio (INR) calculation 2.6 [facility] Ketones Test strip Ql (U)Ord ered By: Herberth Carlson on 11-21-2024 Ketones Ql (U) Negative Negative [facility] Lactic acid measurementOrder ed By: Herberth Carlson on 11-21-2024 Lactic acid measurement 2.7 mmol/L High 0.0-2.0 [facility] Leukocyte esterase Test stri p Ql (U)Ordered By: Herberth Carlson on 11-21-2024 Urine leukocyte esterase detection by dipstick 500 /ul High Negative [facility] Lymphocytes Auto (Unsp spec) [#/Vol]Ordered By: Herberth Carlson on 11-21-2024 Absolute lymphocyte count 1.33 X10^3/uL 0.83-4.51 [facility] [facility] Lymphocytes/100 WBC Auto (Un sp spec)Ordered By: Herberth Carlson on 11-21-2024 Automated lymphocyte count as percentage of total leukocytes 13.9 % Low 19-41 [facility] MCV (RBC) [Entitic vol]Order ed By: Herberth Carlson on 11-21-2024 MCV (mean corpuscular volume) determination 93.2 fL 80-94 [facility] Mean corpuscular hemoglobin (MCH) determinationOrdered By: Herberth Carlson on 11-21-2024 Mean corpuscular hemoglobin (MCH) determination 31.4 pg 27.0-32.0 [facility] Mean corpuscular hemoglobin concentration (MCHC) determinationOrdered By: Herberth Carlson on 11-21-2024 Mean corpuscular hemoglobin concentration (MCHC) determination 33.7 g/dL 32-36 [facility] Mean platelet volume determi nationOrdered By: Herberth Carlson on 11-21-2024 Mean platelet volume determination 11.6 fl 6.2-12.0 [facility] Monocyte percentageOrdered B y: Herberth Carlson on 11-21-2024 Monocyte percentage 9.2 % 0-10 [facility] Mucus LM Ql (Urine sed)Order ed By: Herberth Carlson on 11-21-2024 Mucus Ql (Urine sed) 0 SEEN /hpf [facility] Neutrophil percentageOrdered By: Herberth Carlson on 11-21-2024 Neutrophil percentage 68.7 % 47-70 [facility] Nitrite Test strip Ql (U)Ord ered By: Herberth Carlson on 11-21-2024 Nitrite Ql (U) Negative Negative [facility] No Panel InformationOrdered By: Herberth Carlson on 11-21-2024 112 U/L High <38 [facility] Nucleated red blood cell per centageOrdered By: Herberth Carlson on 11-21-2024 Nucleated red blood cell percentage 0 % 0-5 [facility] Platelet countOrdered By: Kaylyn Carlson on 11-21-2024 Platelet count 167 K/mm3 150-450 [facility] Potassium (Unsp spec) [Mass/ Vol]Ordered By: Herberth Carlson on 11-21-2024 Potassium measurement (mass/volume) 5.0 mmol/L 3.3-5.1 [facility] Protein Test strip Ql (U)Ord ered By: Herberth Carlson on 11-21-2024 Protein Ql (U) 500 mg/dl High Negative [facility] Urine protein assay by test strip, semi-quantitative 500 mg/dl High Negative [facility] Prothrombin timeOrdered By: Herberth Carlson on 11-21-2024 Prothrombin time 28.2 SECONDS High 11.7-14.9 [facility] RBC Auto (Bld) [#/Vol]Ordere d By: Herberth Carlson on 11-21-2024 Automated blood erythrocyte count 2.64 M/mm3 Low 4.6-6.2 [facility] Serum globulin measurementOr dered By: Herberth Carlson on 11-21-2024 Serum globulin measurement 2.7 g/dL 2.2-4.2 [facility] Sodium levelOrdered By: Norman Carlson on 11-21-2024 Sodium level 132 mmol/L Low 133-145 [facility] Specific gravity (U) [Rel de nsity]Ordered By: Herberth Carlson on 11-21-2024 Urine specific gravity measurement 1.015 1.002-1.030 [facility] Squamous epithelial cells de tection in urine sediment by light microscopyOrdered By: Herberth Carlson on 11-21-2024 Epithelial cells.squamous LM Ql (Urine sed) 0 SEEN /hpf 0-5 [facility] Squamous epithelial cells detection in urine sediment by light microscopy 0 SEEN /hpf [facility] Total proteinOrdered By: Digna Carlson on 11-21-2024 Total protein 5.2 g/dL Low 5.9-8.4 [facility] Urea nitrogen [Mass/Vol]Orde red By: Herberth Carlson on 11-21-2024 Serum or plasma urea nitrogen measurement (mass/volume) 28 mg/dL High 4-19 [facility] Urine blood detectionOrdered By: Herberth Carlson on 11-21-2024 Urine blood detection 250 /ul High Negative [facility] Urine clarityOrdered By: Digna Carlson on 11-21-2024 Clarity (U) Sl Cldy Clear [facility] Urine color determinationOrd ered By: Herberth Carlson on 11-21-2024 Color (U) Yellow Yellow 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 Bacteria identified Cx Nom (U) GPC Poss Enterococcus sp Abnormal [facility] Bacteria identified Cx Nom (U) Positive Abnormal [facility] Urine glucose detectionOrder ed By: Herberth Carlson on 11-21-2024 Glucose Ql (U) Normal mg/dl Normal [facility] Urine glucose detection Normal mg/dl Normal [facility] Urine leukocyte esterase det ection by dipstickOrdered By: Herberth Carlson on 11-21-2024 Leukocyte esterase Test strip Ql (U) 500 /ul High Negative [facility] Urine pHOrdered By: Herberth Carlson on 11-21-2024 pH (U) 6.0 [pH] 5.0 - 8.0 [facility] Urine sediment bacteria coun t by microscopy (number/high power field)Ordered By: Herberth Carlson on 11-21-2024 Bacteria LM.HPF (Urine sed) [#/Area] RARE /hpf None Seen [facility] Urine specific gravity measu rementOrdered By: Herberth Carlson on 11-21-2024 Specific gravity (U) [Rel density] 1.015 1.002-1.030 [facility] Urine total bilirubin detect ion by test stripOrdered By: Herberth Carlson on 11-21-2024 Urine total bilirubin detection by test strip Negative Negative [facility] Urine urobilinogen measureme ntOrdered By: Herberth Carlson on 11-21-2024 Urobilinogen Ql (U) Normal mg/dl Normal [facility] Venous blood ammonia measure mentOrdered By: Herberth Carlson on 11-21-2024 Ammonia (P) [Moles/Vol] 17.9 umol/L 16- [facility] Venous blood ammonia measurement 17.9 umol/L -60 [facility] White blood cell (WBC) count Ordered By: Herberth Carlson on 11-21-2024 White blood cell (WBC) count 9.5 K/mm3 4.4-11.0 [facility] White blood cell countOrdere d By: Herberth Carlson on 11-21-2024 White blood cell count >100 SEEN /hpf 0-5 [facility] White blood cell count >100 SEEN /hpf 0-5 [facility] pH (U)Ordered By: Herberth henao on 11-21-2024 Urine pH 6.0 5.0 - 8.0 [facility] Bacteria Ur Culton Bacteria identified Cx Nom (U) CULTURE, URINE: Mixed microbiota, including predominantly: ORGANISM ID: 1 >=100,000 CFU/ml Mary glabrata No susceptibility testing done. Normal [facility] Comment on above: Performed By: #### 6 30-4 ####[facility] [id number] [id number] [address] [place] Bacteria identified Cx Nom (U) Normal [facility] Comment on above: Performed By: #### 2 4356-8, 630-4 ####[facility] [id number] [address] [address] [place] Basic metabolic 2000 panelon 11-18-2024 Anion gap [Moles/Vol] 8 mmol/L Normal 8-15 [facility] Comment on above: Order Comment: Speci men Type: BLOOD SPECIMENOrdering Facility: [facility] Address: [address] [place], [place] [address] Performed By: #### 2 4321-2, 25991-0, 2777-1 ####[facility] [id number] [place] [id number] [place] Calcium [Mass/Vol] 8.3 mg/dL Low 8.5-10.2 [facility] Comment on above: Order Comment: Speci men Type: BLOOD SPECIMENOrdering Facility: [facility] Address: [address] [place], [place] [address] Performed By: #### 2 4321-2, 51503-6, 2777-1 ####[facility] [id number] [place] [id number] [place] Chloride [Moles/Vol] 102 mmol/L Normal 98-107 [facility] Comment on above: Order Comment: Speci men Type: BLOOD SPECIMENOrdering Facility: [facility] Address: [address] [place], [place] [address] Performed By: #### 2 4321-2, 76323-0, 2777-1 ####[facility] [id number] [place] [id number] [place] CO2 [Moles/Vol] 19 mmol/L Low 22-30 [facility] Comment on above: Order Comment: Speci men Type: BLOOD SPECIMENOrdering Facility: [facility] Address: [address] [place] [address] Performed By: #### 2 4321-2, 32321-0, 277-1 ####[facility]IA [id number] [address] [address] [place] Creatinine [Mass/Vol] 0.95 mg/dL Normal 0.73-1.22 [facility] Comment on above: Order Comment: Spechelder men Type: BLOOD SPECIMENOrdering Facility: [facility] Address: [address] [place] [address] Performed By: #### 2 4321-2, 74290-9, 2776- ####[facility] [id number] [place] [address] [place] Creatinine and Glomerular filtration rate.predicted panel (S/P/Bld) 93 mL/min/1.73m??? Normal >=60 [facility] Comment on above: Order Comment: Ezekiel men Type: BLOOD SPECIMENOrdering Facility: [facility] Address: [address] [place] [address] Result Comment: Patric mated Glomerular Filtration Rate [...] actual GFR. Performed By: #### 2 4321-2, 77506-0, 2776-08 ####[facility] [id number] [address] [address] [place] Glucose [Mass/Vol] 248 mg/dL High 74-99 [facility] Comment on above: Order Comment: Ezekiel men Type: BLOOD SPECIMENOrdering Facility: [facility] Address: [address] [place] [address] Result Comment: The [place] [employer] (ADA) provides guidance for cutoff [...] Standards of Medical Care in Diabetes 2016, [place] [employer]. Diabetes Care. 2016.39(Suppl 1). Performed By: #### 2 4321-2, 54578-3, 2776- ####[facility] [id number] [place] [address] [place] Potassium [Moles/Vol] 4.4 mmol/L Normal 3.7-5.1 [facility] Comment on above: Order Comment: Speci men Type: BLOOD SPECIMENOrdering Facility: [facility] Address: [address] [place] [address] Performed By: #### 2 432-2, 01026-7, 2776-08 ####[facility] [id number] [place] [address] [place] Sodium [Moles/Vol] 129 mmol/L Low 136-144 [facility] Comment on above: Order Comment: Speci men Type: BLOOD SPECIMENOrdering Facility: [facility] Address: [address] [place] [address] Performed By: #### 2 432-2, 42949-1, 2776-08 ####[facility] [id number] [place] [id number] [place] Urea nitrogen [Mass/Vol] 16 mg/dL Normal 9-24 [facility] Comment on above: Order Comment: Speci men Type: BLOOD SPECIMENOrdering Facility: [facility] Address: [address] [place] [address] Performed By: #### 2 432-2, 41542-9, 2776-08 ####[facility] [id number] [facility] [address] [place] [address] [place] CASE MANAGEMon 11-18-2024 CASE MANAGEM Normal [facility] CBC W Auto Differential pane l (Bld)on 11-18-2024 Basophils (Bld) [#/Vol] 10*3/uL Normal <0.11 C [facility] Comment on above: Order Comment: Speci men Type: BLOOD SPECIMENOrdering Facility: [facility] Address: [address] [place] [address] Performed By: #### 5 7021-8 ####[facility] [id number] [facility] [address], [facility] [place] Basophils/100 WBC (Bld) 0.0 % Normal C [facility] Comment on above: Order Comment: Speci men Type: BLOOD SPECIMENOrdering Facility: [facility] Address: [address] [place] [address] Performed By: #### 5 7021-8 ####[facility] [id number] [facility] [address], [place] [address] [place] Differential cell count method Nom (Bld) Auto Normal [facility] Comment on above: Order Comment: Speci men Type: BLOOD SPECIMENOrdering Facility: [facility] Address: [address] [place] [address] Performed By: #### 5 7021-8 ####[facility] [id number] [facility] [address] [place] [address] [place] Eosinophils (Bld) [#/Vol] 10*3/uL Normal <0.46 [facility] Comment on above: Order Comment: Speci men Type: BLOOD SPECIMENOrdering Facility: [facility] Address: [address] [place] [address] Performed By: #### 5 7021-8 ####[facility] [id number] [facility] [place] [address] [place] Eosinophils/100 WBC (Bld) 0.1 % Normal [facility] Comment on above: Order Comment: Speci men Type: BLOOD SPECIMENOrdering Facility: [facility] Address: [address] [place] [address] Performed By: #### 5 7021-8 ####[facility] [id number] [place] [address] [place] Erythrocyte distribution width (RBC) [Ratio] 16.7 % High 11.5-15.0 [facility] Comment on above: Order Comment: Speci men Type: BLOOD SPECIMENOrdering Facility: [facility] Address: [address] [place] [address] Performed By: #### 5 7021-8 ####[facility] [id number] [place] [address] [place] Hematocrit (Bld) [Volume fraction] 21.5 % Low 39.0-51.0 [facility] Comment on above: Order Comment: Speci men Type: BLOOD SPECIMENOrdering Facility: [facility] Address: [address] [place] [address] Performed By: #### 5 7021-8 ####[facility] [id number] [place] [address] [place] Hemoglobin (Bld) [Mass/Vol] 7.2 g/dL Low 13.0-17.0 [facility] Comment on above: Order Comment: Speci men Type: BLOOD SPECIMENOrdering Facility: [facility] Address: [address] [place] [address] Performed By: #### 5 7021-8 ####[facility] [id number] [place] [address] [place] Immature granulocytes (Bld) [#/Vol] 0.06 10*3/uL Normal <0.10 [facility] Comment on above: Order Comment: Speci men Type: BLOOD SPECIMENOrdering Facility: [facility] Address: [address] [place] [address] Performed By: #### 5 7021-8 ####[facility] [id number] [address] STATES [facility] Immature granulocytes/100 WBC (Bld) 0.7 % Normal [facility] Comment on above: Order Comment: Speci men Type: BLOOD SPECIMENOrdering Facility: [facility] Address: [address] [place] [address] Performed By: #### 5 7021-8 ####[facility] [id number] [place] [address] [place] Lymphocytes (Bld) [#/Vol] 0.61 10*3/uL Low 1.00-4.00 [facility] Comment on above: Order Comment: Speci men Type: BLOOD SPECIMENOrdering Facility: [facility] Address: [address] [place] [address] Performed By: #### 5 7021-8 ####[facility] [id number] [place] [address] [place] Lymphocytes/100 WBC (Bld) 7.3 % Normal [facility] Comment on above: Order Comment: Speci men Type: BLOOD SPECIMENOrdering Facility: [facility] Address: [address] [place] [address] Performed By: #### 5 7021-8 ####[facility] [id number] [place] [address] [place] MCH (RBC) [Entitic mass] 30.9 pg Normal 26.0-34.0 [facility] Comment on above: Order Comment: Speci men Type: BLOOD SPECIMENOrdering Facility: [facility] Address: [address] [place] [address] Performed By: #### 5 7021-8 ####[facility] [id number] [place] [address] [place] MCHC (RBC) [Mass/Vol] 33.5 g/dL Normal 30.5-36.0 [facility] Comment on above: Order Comment: Speci men Type: BLOOD SPECIMENOrdering Facility: [facility] Address: [address] [place] [address] Performed By: #### 5 7021-8 ####[facility] [id number] [place] [address] [place] MCV (RBC) [Entitic vol] 92.3 fL Normal 80.0-100.0 C [facility] Comment on above: Order Comment: Speci men Type: BLOOD SPECIMENOrdering Facility: [facility] Address: [address] [place] [address] Performed By: #### 5 7021-8 ####[facility] [id number] [place] [address] [place] Monocytes (Bld) [#/Vol] 0.72 10*3/uL Normal <0.87 [facility] Comment on above: Order Comment: Speci men Type: BLOOD SPECIMENOrdering Facility: [facility] Address: [address] [place] [address] Performed By: #### 5 7021-8 ####[facility] [id number] [place] [address] [place] Monocytes/100 WBC (Bld) 8.7 % Normal C [facility] Comment on above: Order Comment: Speci men Type: BLOOD SPECIMENOrdering Facility: [facility] Address: [address] [place] [address] Performed By: #### 5 7021-8 ####[facility] [id number] [place] [id number] [place] Neutrophils (Bld) [#/Vol] 6.92 10*3/uL Normal 1.45-7.50 [facility] Comment on above: Order Comment: Speci men Type: BLOOD SPECIMENOrdering Facility: [facility] Address: [address] [place] [address] Performed By: #### 5 7021-8 ####[facility] [id number] [place] [address] [place] Neutrophils/100 WBC (Bld) 83.2 % Normal [facility] Comment on above: Order Comment: Speci men Type: BLOOD SPECIMENOrdering Facility: [facility] Address: [address] [place] [address] Performed By: #### 5 7021-8 ####[facility] [id number] [place] [address] [place] Nucleated RBC (Bld) [#/Vol] 10*3/uL Normal <0.01 [facility] Comment on above: Order Comment: Speci men Type: BLOOD SPECIMENOrdering Facility: [facility] Address: [address] [place] [address] Performed By: #### 5 7021-8 ####[facility] [id number] [place] [address] [place] Nucleated RBC/100 WBC (Bld) [Ratio] 0.0 /100 WBC Normal [facility] Comment on above: Order Comment: Speci men Type: BLOOD SPECIMENOrdering Facility: [facility] Address: [address] [place] [address] Performed By: #### 5 7021-8 ####[facility] [id number] [place] [id number] [place] Platelet mean volume (Bld) [Entitic vol] 12.1 fL Normal 9.0-12.7 [facility] Comment on above: Order Comment: Speci men Type: BLOOD SPECIMENOrdering Facility: [facility] Address: [address] [place] [address] Performed By: #### 5 7021-8 ####[facility] [id number] [place] [address] [place] Platelets (Bld) [#/Vol] 76 10*3/uL Low 150-400 C [facility] Comment on above: Order Comment: Speci men Type: BLOOD SPECIMENOrdering Facility: [facility] Address: [address] [place] [address] Result Comment: No c lot detected. Performed By: #### 5 7021-8 ####[facility] [id number] [place] [address] [place] RBC (Bld) [#/Vol] 2.33 10*6/uL Low 4.20-6.00 [facility] Comment on above: Order Comment: Speci men Type: BLOOD SPECIMENOrdering Facility: [facility] Address: [address] [place] [address] Performed By: #### 5 7021-8 ####[facility] [id number] [place] [address] [place] WBC (Bld) [#/Vol] 8.32 10*3/uL Normal 3.70-11.00 [facility] Comment on above: Order Comment: Speci men Type: BLOOD SPECIMENOrdering Facility: [facility] Address: [address] [place] [address] Performed By: #### 5 7021-8 ####[facility] [id number] [place] [address] [place] CNCOon 11-18-2024 CNCO [...] Comment: Speci men Type: BLOOD SPECIMENOrdering Facility: [facility] Address: [address] [place] [address] Performed By: #### 3 255-7, 78998-0 ####[facility] [id number] [place] [address] [place] Hepatic function 2000 panelo n 11-18-2024 Albumin [Mass/Vol] 2.6 g/dL Low 3.9-4.9 [facility] Comment on above: Order Comment: Speci men Type: BLOOD SPECIMENOrdering Facility: [facility] Address: [address] [place] [address] Performed By: #### 2 4321-2, 60421-5, 2777-1 ####[facility] [id number] [place] [address] [place] ALP [Catalytic activity/Vol] 245 U/L High 38-113 [facility] Comment on above: Order Comment: Speci men Type: BLOOD SPECIMENOrdering Facility: [facility] Address: [address] [place] [address] Performed By: #### 2 4321-2, 05976-3, 2777-1 ####[facility] [id number] [address] [place] ALT [Catalytic activity/Vol] 31 U/L Normal 10-54 [facility] Comment on above: Order Comment: Speci men Type: BLOOD SPECIMENOrdering Facility: [facility] Address: [address] [place] [address] Performed By: #### 2 4321-2, 48266-1, 2777-1 ####[facility] [id number] [place] [id number] [place] AST [Catalytic activity/Vol] 52 U/L High 14-40 [facility] Comment on above: Order Comment: Speci men Type: BLOOD SPECIMENOrdering Facility: [facility] Address: [address] [place] [address] Performed By: #### 2 4321-2, 33502-0, 27702-01 ####[facility] [id number] [place] [id number] [place] Bilirubin [Mass/Vol] 1.2 mg/dL Normal 0.2-1.3 [facility] Comment on above: Order Comment: Speci men Type: BLOOD SPECIMENOrdering Facility: [facility] Address: [address] [place] [address] Performed By: #### 2 4321-2, 89345-2, 27702-01 ####[facility] [id number] [place] [address] [place] Bilirubin.conjugated [Mass/Vol] 0.7 mg/dL High <0.3 [facility] Comment on above: Order Comment: Speci men Type: BLOOD SPECIMENOrdering Facility: [facility] Address: [address] [place] [address] Performed By: #### 2 4321-2, 98187-5, 27702-01 ####[facility] [id number] [place] [address] [place] Protein [Mass/Vol] 5.0 g/dL Low 6.3-8.0 [facility] Comment on above: Order Comment: Speci men Type: BLOOD SPECIMENOrdering Facility: [facility] Address: [address] [place] [address] Performed By: #### 2 4321-2, 96744-2, 27702-01 ####[facility] [id number] [place] [id number] [place] NURSING PROGon 11-18-2024 NURSING PROG Normal [facility] PT panel Coag (PPP)on 2024 INR Coag (PPP) [Relative time] 2.0 {INR} High 0.9-1.3 [facility] Comment on above: Order Comment: Speci men Type: BLOOD SPECIMENOrdering Facility: [facility] Address: [address] [place] [address] Result Comment: Sarah min K Antagonist (VKA) Therapeutic Range: INR 2 to 3 (Target INR of 2.5)Note: For patients treated with VKA drugs, such as warfarin, the [place] [employer] 2012 Guideline recommends [...] al. Chest 2012, 141:7S-47SNishbethel RA, et al. [facility] 2017, 70: 252-289 Performed By: #### 3 255-7, 25015-5 ####[facility] [id number] [place] [address] [place] PT Coag (PPP) [Time] 20.9 s High 9.7-13.0 [facility] Comment on above: Order Comment: Speci men Type: BLOOD SPECIMENOrdering Facility: [facility] Address: [address] [place] [address] Performed By: #### 3 255-7, 74901-0 ####[facility] [id number] [place] [id number] [place] Phosphate SerPl-mCncon 11-18 Phosphate [Mass/Vol] 2.4 mg/dL Low 2.7-4.8 [facility] Comment on above: Order Comment: Speci men Type: BLOOD SPECIMENOrdering Facility: [facility] Address: [address] [place] [address] Performed By: #### 2 4321-2, 02731-3, 2777-1 ####[facility] [id number] [place] [address] [place] TYPE + SCREENon 11-18-2024 ABO O Normal [facility] Comment on above: Order Comment: Speci men Type: BLOOD SPECIMENOrdering Facility: [facility] Address: [address] [place] [address] Performed By: #### T SCR ####[facility] BLOOD BANKCLIA [id number] [place] [address] [place] Rh Nom (Bld) Positive Normal [facility] Comment on above: Order Comment: Speci men Type: BLOOD SPECIMENOrdering Facility: [facility] Address: [address] [place] [address] Performed By: #### T SCR ####[facility] BLOOD BANKCLIA [id number] [place] [address] [place] TYPE AND SCREEN EXPIRATION 11/21/2024 23:59 Normal [facility] Comment on above: Order Comment: Speci men Type: BLOOD SPECIMENOrdering Facility: [facility] Address: [address] [place] [address] Performed By: #### T SCR ####CC [facility] BLOOD BANKCLIA [id number] [place] [address] [place] Urinalysis complete panel (U )on 11-18-2024 BACTERIA UL 1671.0 uL High Negative [facility] Comment on above: Order Comment: Speci men Type: URINE SPECIMENOrdering Facility: [facility] Address: [address] [place] [address] Performed By: #### 2 4356-8, 630-4 ####[facility] [id number] [place] [address] [place] Bilirubin Ql (U) 2+ Abnormal Negative [facility] Comment on above: Order Comment: Speci men Type: URINE SPECIMENOrdering Facility: [facility] Address: [address] [place] [address] Result Comment: Sugg est correlation with clinical findings and serum bilirubin if clinically indicated. Performed By: #### 2 4356-8, 630-4 ####[facility] [id number] [address] [place] [address] [place] CALCIUM OXALATE CRYSTALS (UA) Few Abnormal None Seen [facility] Comment on above: Order Comment: Speci men Type: URINE SPECIMENOrdering Facility: [facility] Address: [address] [place] [address] Performed By: #### 2 4356-8, 630-4 ####[facility] [id number] [address], [facility]95 [place] Clarity (Unsp spec) Turbid Abnormal Clear [facility] Comment on above: Order Comment: Speci men Type: URINE SPECIMENOrdering Facility: [facility] Address: [address] [place] [address] Performed By: #### 2 4356-8, 630-4 ####[facility] [id number] [address], [place] [address] [place] Color (U) Red Abnormal Yellow [facility] Comment on above: Order Comment: Speci men Type: URINE SPECIMENOrdering Facility: [facility] Address: [address] [place] [address] Performed By: #### 2 4356-8, 630-4 ####[facility] [id number] [address], [facility]95 [place] Epithelial cells LM.HPF (Urine sed) [#/Area] None Seen Normal [facility] Comment on above: Order Comment: Speci men Type: URINE SPECIMENOrdering Facility: [facility] Address: [address] [place] [address] Performed By: #### 2 4356-8, 630-4 ####[facility] [id number] [address], [facility]95 [place] Glucose Test strip (U) [Mass/Vol] Negative Normal Negative [facility] Comment on above: Order Comment: Speci men Type: URINE SPECIMENOrdering Facility: [facility] Address: [address] [place] [address] Performed By: #### 2 4356-8, 630-4 ####[facility] [id number] [facility] [id number], [facility]95 [place] Hemoglobin Ql (U) 2+ Abnormal Negative [facility] Comment on above: Order Comment: Speci men Type: URINE SPECIMENOrdering Facility: [facility] Address: [address] [place] [address] Performed By: #### 2 4356-8, 630-4 ####[facility] [id number] [facility] [address], [facility]95 [place] Hyaline casts (Urine sed) [#/Area] 0 /[LPF] Normal 0 /LPF [facility] Comment on above: Order Comment: Speci men Type: URINE SPECIMENOrdering Facility: [facility] Address: [address] [place] [address] Performed By: #### 2 4356-8, 630-4 ####[facility] [id number] [facility] [address], [facility]95 [place] Ketones Ql (U) Negative Normal Negative [facility] Comment on above: Order Comment: Speci men Type: URINE SPECIMENOrdering Facility: [facility] Address: [address] [place] [address] Performed By: #### 2 4356-8, 630-4 ####[facility] [id number] [address], [facility]95 [place] Leukocyte esterase Test strip Ql (U) 3+ Abnormal Negative [facility] Comment on above: Order Comment: Speci men Type: URINE SPECIMENOrdering Facility: [facility] Address: [address] [place] [address] Performed By: #### 2 4356-8, 630-4 ####[facility] [id number] [place] [address] [place] Nitrite Ql (U) Negative Normal Negative [facility] Comment on above: Order Comment: Speci men Type: URINE SPECIMENOrdering Facility: [facility] Address: [address] [place] [address] Result Comment: Resu lt rechecked. Performed By: #### 2 4356-8, 630-4 ####[facility] [id number] [place] [address] [place] pH (U) 5.0 [pH] Normal <8.5 [facility] Comment on above: Order Comment: Speci men Type: URINE SPECIMENOrdering Facility: [facility] Address: [address] [place] [address] Performed By: #### 2 4356-8, 630-4 ####[facility] LABIA [id number] [place] [address] [place] Protein (U) [Mass/Vol] 2+ Abnormal Negative Cl [facility] Comment on above: Order Comment: Speci men Type: URINE SPECIMENOrdering Facility: [facility] Address: [address] [place] [address] Performed By: #### 2 4356-8, 630-4 ####[facility] [id number] [address], [place] [address] [place] RBC LM.HPF (Urine sed) [#/Area] /[HPF] Abnormal 0-2 /HPF [facility] Comment on above: Order Comment: Speci men Type: URINE SPECIMENOrdering Facility: [facility] Address: [address] [place] [address] Performed By: #### 2 4356-8, 630-4 ####[facility] [id number] [place] [address] [place] Specific gravity (U) [Rel density] 1.021 Normal 1.005-1.030 [facility] Comment on above: Order Comment: Speci men Type: URINE SPECIMENOrdering Facility: [facility] Address: [address] [place] [address] Performed By: #### 2 4356-8, 630-4 ####[facility]IA [id number] [place] [address] [place] Urobilinogen Ql (U) 0.2 EU/dL Normal 0.2-1.0 EU/dL [facility] Comment on above: Order Comment: Speci men Type: URINE SPECIMENOrdering Facility: [facility] Address: [address] [place] [address] Performed By: #### 2 4356-8, 630-4 ####[facility] LABIA [id number] [place] [address] [place] WBC LM.HPF (Urine sed) [#/Area] /[HPF] Abnormal 0-5 /HPF [facility] Comment on above: Order Comment: Speci men Type: URINE SPECIMENOrdering Facility: [facility] Address: [address] [place] [address] Performed By: #### 2 4356-8, 630-4 ####[facility]IA [id number] [place] [address] [place] Yeast.budding LM.HPF (Urine sed) [#/Area] Present Abnormal None Seen [facility] Comment on above: Order Comment: Speci men Type: URINE SPECIMENOrdering Facility: [facility] Address: [address] [place] [address] Performed By: #### 2 4356-8, 630-4 ####[facility] LABIA [id number] [place] [address] [place] Basic metabolic 2000 panelon 11-17-2024 Anion gap [Moles/Vol] 10 mmol/L Normal 8-15 [facility] Comment on above: Order Comment: Speci men Type: BLOOD SPECIMENOrdering Facility: [facility] Address: [address] [place] [address] Performed By: #### 2 4321-2, 32079-1, 2776- ####[facility] [id number] [facility] [address] [address] [place] Calcium [Mass/Vol] 8.9 mg/dL Normal 8.5-10.2 [facility] Comment on above: Order Comment: Speci men Type: BLOOD SPECIMENOrdering Facility: [facility] Address: [address] [place], [place] [address] Performed By: #### 2 4321-2, 62910-4, 2776-08 ####[facility] [id number] [place] [address] [place] Chloride [Moles/Vol] 105 mmol/L Normal 98-107 [facility] Comment on above: Order Comment: Speci men Type: BLOOD SPECIMENOrdering Facility: [facility] Address: [address] [place] [address] Performed By: #### 2 4321-2, 66847-3, 2776-08 ####[facility] [id number] [facility] [place] [id number] [place] CO2 [Moles/Vol] 17 mmol/L Low 22-30 [facility] Comment on above: Order Comment: Speci men Type: BLOOD SPECIMENOrdering Facility: [facility] Address: [address] [place] [address] Performed By: #### 2 4321-2, 82324-4, 2776-08 ####[facility] [id number] [facility] [address] [address] [place] Creatinine [Mass/Vol] 0.77 mg/dL Normal 0.73-1.22 [facility] Comment on above: Order Comment: Ezekiel ramirez Type: BLOOD SPECIMENOrdering Facility: [facility] Address: [address] [place] [address] Performed By: #### 2 4321-2, 74328-4, 2777-1 ####[facility] LABIA [id number] [place] [address] [place] Creatinine and Glomerular filtration rate.predicted panel (S/P/Bld) 104 mL/min/1.73m??? Normal >=60 [facility] Comment on above: Order Comment: Ezekiel ramirez Type: BLOOD SPECIMENOrdering Facility: [facility] Address: [address] [place] [address] Result Comment: Patric mated Glomerular Filtration Rate [...] actual GFR. Performed By: #### 2 4321-2, 05588-3, 2777-1 ####[facility] LABIA [id number] [place] [address] [place] Glucose [Mass/Vol] 291 mg/dL High 74-99 [facility] Comment on above: Order Comment: Ezekiel ramirez Type: BLOOD SPECIMENOrdering Facility: [facility] Address: [address] [place] [address] Result Comment: The [place] [employer] (ADA) provides guidance for cutoff [...] Standards of Medical Care in Diabetes 2016, [place] [employer]. Diabetes Care. 2016.39(Suppl 1). Performed By: #### 2 4321-2, 26407-4, 2777- ####[facility] [id number] [address] [address] [place] Potassium [Moles/Vol] 4.5 mmol/L Normal 3.7-5.1 [facility] Comment on above: Order Comment: Speci men Type: BLOOD SPECIMENOrdering Facility: [facility] Address: [address] [place] [address] Performed By: #### 2 4321-2, 67834-0, 27702-01 ####[facility] [id number] [place] [address] [place] Sodium [Moles/Vol] 132 mmol/L Low 136-144 [facility] Comment on above: Order Comment: Speci men Type: BLOOD SPECIMENOrdering Facility: [facility] Address: [address] [place] [address] Performed By: #### 2 4321-2, 30922-0, 2776-08 ####[facility] LABIA [id number] [place] [address] [place] Urea nitrogen [Mass/Vol] 9 mg/dL Normal 9-24 [facility] Comment on above: Order Comment: Speci men Type: BLOOD SPECIMENOrdering Facility: [facility] Address: [address] [place] [address] Performed By: #### 2 4321-2, 85483-0, 2776- ####[facility] LABIA [id number] [address] [address] [place] CASE MANAGEMon 11-17-2024 CASE MANAGEM Normal [facility] CBC W Auto Differential pane l (Bld)on 11-17-2024 Basophils (Bld) [#/Vol] 10*3/uL Normal <0.11 C [facility] Comment on above: Order Comment: Speci men Type: BLOOD SPECIMENOrdering Facility: [facility] Address: [address] [place] [address] Performed By: #### 5 7021-8 ####[facility]CL[facility] [id number] [address] [address] [place] Basophils/100 WBC (Bld) 0.0 % Normal C [facility] Comment on above: Order Comment: Speci men Type: BLOOD SPECIMENOrdering Facility: [facility] Address: [address] [place] [address] Performed By: #### 5 7021-8 ####[facility] [id number] [place] [address] [place] Differential cell count method Nom (Bld) Auto Normal [facility] Comment on above: Order Comment: Speci men Type: BLOOD SPECIMENOrdering Facility: [facility] Address: [address] [place] [address] Performed By: #### 5 7021-8 ####[facility]CL[facility] [id number] [place] [address] [place] Eosinophils (Bld) [#/Vol] 10*3/uL Normal <0.46 [facility] Comment on above: Order Comment: Speci men Type: BLOOD SPECIMENOrdering Facility: [facility] Address: [address] [place] [address] Performed By: #### 5 7021-8 ####[facility]CL[facility] [id number] [place] [address] [place] Eosinophils/100 WBC (Bld) 0.0 % Normal [facility] Comment on above: Order Comment: Speci men Type: BLOOD SPECIMENOrdering Facility: [facility] Address: [address] [place] [address] Performed By: #### 5 7021-8 ####[facility]CL[facility] [id number] [place] [address] [place] Erythrocyte distribution width (RBC) [Ratio] 16.9 % High 11.5-15.0 [facility] Comment on above: Order Comment: Speci men Type: BLOOD SPECIMENOrdering Facility: [facility] Address: [address] [place] [address] Performed By: #### 5 7021-8 ####[facility] [id number] [place] [address] [place] Hematocrit (Bld) [Volume fraction] 22.7 % Low 39.0-51.0 [facility] Comment on above: Order Comment: Speci men Type: BLOOD SPECIMENOrdering Facility: [facility] Address: [address] [place] [address] Performed By: #### 5 7021-8 ####[facility] [id number] [place] [address] [place] Hemoglobin (Bld) [Mass/Vol] 7.7 g/dL Low 13.0-17.0 [facility] Comment on above: Order Comment: Speci men Type: BLOOD SPECIMENOrdering Facility: [facility] Address: [address] [place] [address] Performed By: #### 5 7021-8 ####[facility] [id number] [place] [address] [place] Immature granulocytes (Bld) [#/Vol] 0.03 10*3/uL Normal <0.10 [facility] Comment on above: Order Comment: Speci men Type: BLOOD SPECIMENOrdering Facility: [facility] Address: [address] [place] [address] Performed By: #### 5 7021-8 ####[facility]CL[facility] [id number] [place] [address] [place] Immature granulocytes/100 WBC (Bld) 0.9 % Normal [facility] Comment on above: Order Comment: Speci men Type: BLOOD SPECIMENOrdering Facility: [facility] Address: [address] [place] [address] Performed By: #### 5 7021-8 ####[facility] LABIA [id number] [place] [address] [place] Lymphocytes (Bld) [#/Vol] 0.28 10*3/uL Low 1.00-4.00 [facility] Comment on above: Order Comment: Speci men Type: BLOOD SPECIMENOrdering Facility: [facility] Address: [address] [place] [address] Performed By: #### 5 7021-8 ####[facility] LABIA [id number] [place] [address] [place] Lymphocytes/100 WBC (Bld) 8.3 % Normal [facility] Comment on above: Order Comment: Speci men Type: BLOOD SPECIMENOrdering Facility: [facility] Address: [address] [place] [address] Performed By: #### 5 7021-8 ####[facility] LABIA [id number] [place] [address] [place] MCH (RBC) [Entitic mass] 31.7 pg Normal 26.0-34.0 [facility] Comment on above: Order Comment: Speci men Type: BLOOD SPECIMENOrdering Facility: [facility] Address: [address] [place] [address] Performed By: #### 5 7021-8 ####[facility] LABIA [id number] [place] [address] [place] MCHC (RBC) [Mass/Vol] 33.9 g/dL Normal 30.5-36.0 [facility] Comment on above: Order Comment: Speci men Type: BLOOD SPECIMENOrdering Facility: [facility] Address: [address] [place] [address] Performed By: #### 5 7021-8 ####[facility]CL[facility] [id number] [place] [address] [place] MCV (RBC) [Entitic vol] 93.4 fL Normal 80.0-100.0 [facility] Comment on above: Order Comment: Speci men Type: BLOOD SPECIMENOrdering Facility: [facility] Address: [address] [place] [address] Performed By: #### 5 7021-8 ####[facility]CL[facility] [id number] [place] [address] [place] Monocytes (Bld) [#/Vol] 0.17 10*3/uL Normal <0.87 [facility] Comment on above: Order Comment: Speci men Type: BLOOD SPECIMENOrdering Facility: [facility] Address: [address] [place] [address] Performed By: #### 5 7021-8 ####[facility] LABIA [id number] [place] [address] [place] Monocytes/100 WBC (Bld) 5.0 % Normal C [facility] Comment on above: Order Comment: Speci men Type: BLOOD SPECIMENOrdering Facility: [facility] Address: [address] [place] [address] Performed By: #### 5 7021-8 ####[facility]IA [id number] [place] [address] [place] Neutrophils (Bld) [#/Vol] 2.89 10*3/uL Normal 1.45-7.50 [facility] Comment on above: Order Comment: Speci men Type: BLOOD SPECIMENOrdering Facility: [facility] Address: [address] [place] [address] Performed By: #### 5 7021-8 ####[facility] LABIA [id number] [place] [address] [place] Neutrophils/100 WBC (Bld) 85.8 % Normal [facility] Comment on above: Order Comment: Speci men Type: BLOOD SPECIMENOrdering Facility: [facility] Address: [address] [place] [address] Performed By: #### 5 7021-8 ####[facility]CL[facility] [id number] [address] [address] [place] Nucleated RBC (Bld) [#/Vol] 10*3/uL Normal <0.01 [facility] Comment on above: Order Comment: Speci men Type: BLOOD SPECIMENOrdering Facility: [facility] Address: [address] [place] [address] Performed By: #### 5 7021-8 ####[facility] LABIA [id number] [address], [place] [address] [place] Nucleated RBC/100 WBC (Bld) [Ratio] 0.0 /100 WBC Normal [facility] Comment on above: Order Comment: Speci men Type: BLOOD SPECIMENOrdering Facility: [facility] Address: [address] [place] [address] Performed By: #### 5 7021-8 ####[facility]IA [id number] [place] [address] [place] Platelet mean volume (Bld) [Entitic vol] 12.0 fL Normal 9.0-12.7 [facility] Comment on above: Order Comment: Speci men Type: BLOOD SPECIMENOrdering Facility: [facility] Address: [address] [place] [address] Performed By: #### 5 7021-8 ####[facility] LABIA [id number] [place] [id number] [place] Platelets (Bld) [#/Vol] 57 10*3/uL Low 150-400 C [facility] Comment on above: Order Comment: Speci men Type: BLOOD SPECIMENOrdering Facility: [facility] Address: [address] [place] [address] Performed By: #### 5 7021-8 ####[facility] [id number] [place] [address] [place] RBC (Bld) [#/Vol] 2.43 10*6/uL Low 4.20-6.00 [facility] Comment on above: Order Comment: Speci men Type: BLOOD SPECIMENOrdering Facility: [facility] Address: [address] [place] [address] Performed By: #### 5 7021-8 ####[facility] [id number] [place] [address] [place] WBC (Bld) [#/Vol] 3.37 10*3/uL Low 3.70-11.00 [facility] Comment on above: Order Comment: Speci men Type: BLOOD SPECIMENOrdering Facility: [facility] Address: [address] [place] [address] Performed By: #### 5 7021-8 ####[facility] [id number] [place] [address] [place] CONSULT PROGon 11-17-2024 CONSULT PROG Normal [facility] Fact Xa PPP-aCncon Coagulation factor X activated act Coag Qn (PPP) <0.10 Normal <0.10 [facility] Comment on above: Order Comment: Speci men Type: BLOOD SPECIMENOrdering Facility: [facility] Address: [address] [place] [address] Result Comment: The recommended therapeutic range for treatment of venous and arterial thrombosis with intravenous unfractionated heparin is an anti Xa activity level of 0.3 to 0.7 IU/mL. In patients with concomitant therapy with thrombolytic agents and/or platelet glycoprotein IIb/IIIa antagonists, the recommended therapeutic range is an anti Xa activity level of 0.2 to 0.5 IU/mL. Performed By: #### 3 217-7 ####[facility] [id number] [place] [id number] [place] Fibrinogen PPP-mCncon 2024 Fibrinogen Coag (PPP) [Mass/Vol] 114 mg/dL Low 200-400 [facility] Comment on above: Order Comment: Speci men Type: BLOOD SPECIMENOrdering Facility: [facility] Address: [address] [place] [address] Performed By: #### 3 255-7, 29706-5 ####[facility] [id number] [place] [address] [place] Hepatic function 2000 panelo n 11-17-2024 Albumin [Mass/Vol] 2.7 g/dL Low 3.9-4.9 [facility] Comment on above: Order Comment: Speci men Type: BLOOD SPECIMENOrdering Facility: [facility] Address: [address] [place] [address] Performed By: #### 2 4321-2, 52659-4, 2777-1 ####[facility] [id number] [address], [place] [address] [place] ALP [Catalytic activity/Vol] 276 U/L High 38-113 [facility] Comment on above: Order Comment: Speci men Type: BLOOD SPECIMENOrdering Facility: [facility] Address: [address] [place] [address] Performed By: #### 2 4321-2, 29565-1, 2777-1 ####[facility] [id number] [place] [address] [place] ALT [Catalytic activity/Vol] 35 U/L Normal 10-54 [facility] Comment on above: Order Comment: Speci men Type: BLOOD SPECIMENOrdering Facility: [facility] Address: [address] [place] [address] Performed By: #### 2 4321-2, 15588-4, 2777-1 ####[facility] [id number] [place] [address] [place] AST [Catalytic activity/Vol] 80 U/L High 14-40 [facility] Comment on above: Order Comment: Speci men Type: BLOOD SPECIMENOrdering Facility: [facility] Address: [address] [place] [address] Performed By: #### 2 4321-2, 23876-3, 2777-1 ####[facility] [id number] [place] [address] [place] Bilirubin [Mass/Vol] 1.8 mg/dL High 0.2-1.3 [facility] Comment on above: Order Comment: Speci men Type: BLOOD SPECIMENOrdering Facility: [facility] Address: [address] [place] [address] Performed By: #### 2 4321-2, 06967-3, 277-1 ####[facility] [id number] [place] [address] [place] Bilirubin.conjugated [Mass/Vol] 1.0 mg/dL High <0.3 [facility] Comment on above: Order Comment: Speci men Type: BLOOD SPECIMENOrdering Facility: [facility] Address: [address] [place] [address] Performed By: #### 2 4321-2, 15718-5, 2776- ####[facility] [id number] [place] [address] [place] Protein [Mass/Vol] 5.2 g/dL Low 6.3-8.0 [facility] Comment on above: Order Comment: Speci men Type: BLOOD SPECIMENOrdering Facility: [facility] Address: [address] [place] [address] Performed By: #### 2 4321-2, 87233-8, 2777-1 ####[facility] [id number] [address] [place] [address] [place] NUTRITIONon 11-17-2024 NUTRITION Normal [facility] PSA/PROSTATE SPECIFIC ANTIGE N SCREENINGon 11-17-2024 Prostate specific Ag [Mass/Vol] 0.52 ng/mL Normal <2.60 [facility] Comment on above: Order Comment: Speci men Type: BLOOD SPECIMENOrdering Facility: [facility] Address: [address] [place] [address] Result Comment: Tota l PSA test methodology used is the Electrochemiluminescence Immunoassay by [employer]. Total PSA values by differing methodologies cannot be interchanged. Performed By: #### P SAS1 ####[facility] [id number] [address] STATES OF [facility] PT panel Coag (PPP)on 2024 INR Coag (PPP) [Relative time] 2.0 {INR} High 0.9-1.3 [facility] Comment on above: Order Comment: Speci men Type: BLOOD SPECIMENOrdering Facility: [facility] Address: [address] [place] [address] Result Comment: Sarah min K Antagonist (VKA) Therapeutic Range: INR 2 to 3 (Target INR of 2.5)Note: For patients treated with VKA drugs, such as warfarin, the [place] [employer] 2012 Guideline recommends [...] al. Chest 2012, 141:7S-47SHector RA, et al. [facility] 2017, 70: 252-289 Performed By: #### 3 255-7, 24713-5 ####[facility] [id number] [address] [id number] [address] [place] PT Coag (PPP) [Time] 20.6 s High 9.7-13.0 [facility] Comment on above: Order Comment: Speci men Type: BLOOD SPECIMENOrdering Facility: [facility] Address: [address] [place] [address] Performed By: #### 3 255-7, 00261-8 ####[facility] [id number] [place] [address] [place] PTT, ANTICOAGULANT THERAPYon 11-17-2024 aPTT Coag (PPP) [Time] 41.6 s High 23.0-32.4 [facility] Comment on above: Order Comment: Speci men Type: BLOOD SPECIMENOrdering Facility: [facility] Address: [address] [place] [address] Performed By: #### P TTAC ####[facility] [id number] [place] [address] [place] Phosphate SerPl-mCncon 11-17 Phosphate [Mass/Vol] 1.9 mg/dL Low 2.7-4.8 [facility] Comment on above: Order Comment: Speci men Type: BLOOD SPECIMENOrdering Facility: [facility] Address: [address] [place] [address] Performed By: #### 2 4321-2, 31713-8, 2777-1 ####[facility] [id number] [place] [address] [place] THERAPY NTon 11-17-2024 THERAPY NT Normal [facility] aPTT PPPon 11-17-2024 aPTT Coag (PPP) [Time] s High 23.0-32.4 [facility] Comment on above: Order Comment: Speci men Type: BLOOD SPECIMENOrdering Facility: [facility] Address: [address] [place] [address] Result Comment: Resu lt rechecked.Sample checked for clot. Performed By: #### 1 4979-9, PTTAC ####[facility] [id number] [place] [address] [place] ANES POSTPROC EVALon 11-16-2 025 ANES POSTPROC EVAL Normal [facility] ANES PRE-OPon 11-16-2024 ANES PRE-OP Normal [facility] Albumin Fld-mCncon 5 Albumin (Body fld) [Mass/Vol] 0.2 g/dL Normal See Comment [facility] Comment on above: Order Comment: Speci men Type: FLUID SPECIMENOrdering Facility: [facility] Address: [address] [place] [address] Result Comment: Body Fluid Albumin may be [...] document C49A. Joe PA: Clinical Laboratory Standards [place]: 2007.2. Amy JACKSON. Serum to ascites albumin gradient. UpToDate. 2015. Accessed on November 15, 2015.This test was developed, and its performance characteristics determined by the [facility] Department of Pathology and Laboratory Medicine. It has not been cleared or approved by the FDA. The [facility] Department of Pathology and Laboratory Medicine is regulated under CLIA as qualified to perform high-complexity testing. This test is used for clinical purposes. It should not be regarded as investigational or for research. Performed By: #### 1 795-4, 2881-1, 1747-5 ####[facility] [id number] [place] [address] [place] Fluid Nom (Body fld) Ascites Fluid Normal [facility] Comment on above: Order Comment: Speci men Type: FLUID SPECIMENOrdering Facility: [facility] Address: [address] [place] [address] [place] [address] Performed By: #### 1 795-4, 2881-1, 1747-5 ####[facility] [id number] [facility] [place] [address] [place] Amylase Fld-cCncon 5 Amylase (Body fld) [Catalytic activity/Vol] 17 U/L Normal See Comment [facility] Comment on above: Order Comment: Speci men Type: FLUID SPECIMENOrdering Facility: [facility] Address: [address] [place] [address] Result Comment: PLEU RAL FLUIDS:Amylase measurement in [...] document C49-A. Joe PA: Clinical Laboratory Standards [place]; 2007.3. Kelby CONCEPCION, John BRAR, Star DJ. Use of cyst fluid CEA, CA19-9, and amylase for evaluation of pancreatic lesions. Clinical Biochemistry. 2009;42:3559-1707.This test was developed, and its performance characteristics determined by the [facility] Department of Pathology and Laboratory Medicine. It has not been cleared or approved by the FDA. The [facility] Department of Pathology and Laboratory Medicine is regulated under CLIA as qualified to perform high-complexity testing. This test is used for clinical purposes. It should not be regarded as investigational or for research. Performed By: #### 1 795-4, 2881-1, 1747-5 ####[facility] [id number] [facility] [address] [place] [address] [place] BODY FLUID CELL COUNTon 04- Clarity (Unsp spec) Clear Normal Clear [facility] Comment on above: Order Comment: Speci men Type: FLUID SPECIMENOrdering Facility: [facility] Address: [address] [place] [address] Performed By: #### C CBF, [id number] ####[facility] [id number] [address] [place] [address] [place] Color (Body fld) Yellow Normal Yellow [facility] Comment on above: Order Comment: Speci men Type: FLUID SPECIMENOrdering Facility: [facility] Address: [address] [place] [address] Performed By: #### C CBF, [id number] ####[facility] [id number] [address] [place] [address] [place] RBC Manual cnt (Body fld) [#/Vol] 3000 /uL High <2000 [facility] Comment on above: Order Comment: Speci men Type: FLUID SPECIMENOrdering Facility: [facility] Address: [address] [place] [address] Performed By: #### C CBF, [id number] ####[facility] [id number] [address] [address] [place] Specimen source Nom (Body fld) Ascites Fluid Normal [facility] Comment on above: Order Comment: Speci men Type: FLUID SPECIMENOrdering Facility: [facility] Address: [facility] [place] [address] Performed By: #### C CBF, [id number] ####[facility] [id number] [address] [address] [place] WBC Manual cnt (Body fld) [#/Vol] 58 /uL Normal <1000 [facility] Comment on above: Order Comment: Speci men Type: FLUID SPECIMENOrdering Facility: [facility] Address: [address] [place] [address] Performed By: #### C CBF, [id number] ####[facility] [id number] [address] [address] [place] Bacteria Fld Culton 11-17-19 25 Bacteria identified Cx Nom (Body fld) CULTURE, BODY FLD: No growth GRAM STAIN: No organisms seen Few Polymorphonuclear leukocytes Gram stain performed on cytospun specimen. Gram stain from primary specimen Normal [facility] Comment on above: Performed By: #### 6 35-3, 611-4 ####[facility] [id number] [place] [id number] [place] Bacteria Spec Anaerobe Culto n 11-16-2024 Bacteria identified Anaer cx Nom (Unsp spec) Negative Normal [facility] Comment on above: Performed By: #### 6 35-3, 611-4 ####[facility]IA [id number] [address] [address] [place] Basic metabolic 2000 panelon 11-16-2024 Anion gap [Moles/Vol] 10 mmol/L Normal 8-15 [facility] Comment on above: Order Comment: Speci men Type: BLOOD SPECIMENOrdering Facility: [facility] Address: [address] [place] [address] Performed By: #### 2 4321-2, 28836-3, 2777-1 ####[facility] LABIA [id number] [place] [id number] [place] Calcium [Mass/Vol] 8.4 mg/dL Low 8.5-10.2 [facility] Comment on above: Order Comment: Speci men Type: BLOOD SPECIMENOrdering Facility: [facility] Address: [address] [place] [address] Performed By: #### 2 4321-2, 47315-0, 2776- ####[facility] [id number] [place] [address] [place] Chloride [Moles/Vol] 102 mmol/L Normal 98-107 [facility] Comment on above: Order Comment: Speci men Type: BLOOD SPECIMENOrdering Facility: [facility] Address: [address] [place] [address] Performed By: #### 2 4321-2, 17406-8, 2776-08 ####[facility] [id number] [place] [address] [place] CO2 [Moles/Vol] 18 mmol/L Low 22-30 [facility] Comment on above: Order Comment: Speci men Type: BLOOD SPECIMENOrdering Facility: [facility] Address: [address] [place] [address] Performed By: #### 2 4321-2, 41852-1, 2776-08 ####[facility] [id number] [place] [id number] [place] Creatinine [Mass/Vol] 0.73 mg/dL Normal 0.73-1.22 [facility] Comment on above: Order Comment: Speci men Type: BLOOD SPECIMENOrdering Facility: [facility] Address: [address] [place] [address] Performed By: #### 2 4321-2, 80519-1, 27702-01 ####[facility] [id number] [facility] [address] [address] [place] Creatinine and Glomerular filtration rate.predicted panel (S/P/Bld) 105 mL/min/1.73m??? Normal >=60 [facility] Comment on above: Order Comment: Ezekiel ramirez Type: BLOOD SPECIMENOrdering Facility: [facility] Address: [address] [place] [address] Result Comment: Patric mated Glomerular Filtration Rate [...] actual GFR. Performed By: #### 2 4321-2, 38895-2, 2777-1 ####[facility] [id number] [place] [address] [place] Glucose [Mass/Vol] 181 mg/dL High 74-99 [facility] Comment on above: Order Comment: Ezekiel ramriez Type: BLOOD SPECIMENOrdering Facility: [facility] Address: [address] [place] [address] Result Comment: The [place] Diabetes Association (ADA) provides guidance for cutoff [...] Standards of Medical Care in Diabetes 2016, [place] [employer] Association. Diabetes Care. 2016.39(Suppl 1). Performed By: #### 2 4321-2, 01846-3, 2777-1 ####[facility] [id number] [place] [id number] [place] Potassium [Moles/Vol] 3.6 mmol/L Low 3.7-5.1 [facility] Comment on above: Order Comment: Speci men Type: BLOOD SPECIMENOrdering Facility: [facility] Address: [address] [place] [address] Performed By: #### 2 4321-2, 75167-8, 2777-1 ####[facility] [id number] [place] [address] [place] Sodium [Moles/Vol] 130 mmol/L Low 136-144 [facility] Comment on above: Order Comment: Speci men Type: BLOOD SPECIMENOrdering Facility: [facility] Address: [address] [place] [address] Performed By: #### 2 4321-2, 18246-1, 2777- ####[facility] LABIA [id number] [place] [address] [place] Urea nitrogen [Mass/Vol] 9 mg/dL Normal 9-24 [facility] Comment on above: Order Comment: Speci men Type: BLOOD SPECIMENOrdering Facility: [facility] Address: [address] [place] [address] Performed By: #### 2 4321-2, 10653-8, 2777- ####[facility] [id number] [place] [address] [place] CBC W Auto Differential pane l (Bld)on 11-16-2024 Basophils (Bld) [#/Vol] 0.05 10*3/uL Normal <0.11 [facility] Comment on above: Order Comment: Speci men Type: BLOOD SPECIMENOrdering Facility: [facility] Address: [address] [place] [address] Performed By: #### 5 7021-8 ####[facility]IA [id number] [place] [id number] [place] Basophils/100 WBC (Bld) 0.8 % Normal C [facility] Comment on above: Order Comment: Speci men Type: BLOOD SPECIMENOrdering Facility: [facility] Address: [address] [place] [address] Performed By: #### 5 7021-8 ####[facility] [id number] [place] [address] [place] Differential cell count method Nom (Bld) Auto Normal [facility] Comment on above: Order Comment: Speci men Type: BLOOD SPECIMENOrdering Facility: [facility] Address: [address] [place] [address] Performed By: #### 5 7021-8 ####[facility] [id number] [place] [address] [place] Eosinophils (Bld) [#/Vol] 0.22 10*3/uL Normal <0.46 [facility] Comment on above: Order Comment: Speci men Type: BLOOD SPECIMENOrdering Facility: [facility] Address: [address] [place] [address] Performed By: #### 5 7021-8 ####[facility] [id number] [place] [address] [place] Eosinophils/100 WBC (Bld) 3.6 % Normal [facility] Comment on above: Order Comment: Speci men Type: BLOOD SPECIMENOrdering Facility: [facility] Address: [address] [place] [address] Performed By: #### 5 7021-8 ####[facility] [id number] [place] [address] [place] Erythrocyte distribution width (RBC) [Ratio] 16.7 % High 11.5-15.0 [facility] Comment on above: Order Comment: Speci men Type: BLOOD SPECIMENOrdering Facility: [facility] Address: [address] [place] [address] Performed By: #### 5 7021-8 ####[facility] [id number] [place] [address] [place] Hematocrit (Bld) [Volume fraction] 24.0 % Low 39.0-51.0 [facility] Comment on above: Order Comment: Speci men Type: BLOOD SPECIMENOrdering Facility: [facility] Address: [address] [place] [address] Performed By: #### 5 7021-8 ####[facility] [id number] [place] [address] [place] Hemoglobin (Bld) [Mass/Vol] 8.3 g/dL Low 13.0-17.0 [facility] Comment on above: Order Comment: Speci men Type: BLOOD SPECIMENOrdering Facility: [facility] Address: [address] [place] [address] Performed By: #### 5 7021-8 ####[facility] [id number] [place] [address] [place] Immature granulocytes (Bld) [#/Vol] 0.05 10*3/uL Normal <0.10 [facility] Comment on above: Order Comment: Speci men Type: BLOOD SPECIMENOrdering Facility: [facility] Address: [address] [place] [address] Performed By: #### 5 7021-8 ####[facility] [id number] [place] [address] [place] Immature granulocytes/100 WBC (Bld) 0.8 % Normal [facility] Comment on above: Order Comment: Speci men Type: BLOOD SPECIMENOrdering Facility: [facility] Address: [address] [place] [address] Performed By: #### 5 7021-8 ####[facility] [id number] [place] [address] [place] Lymphocytes (Bld) [#/Vol] 0.75 10*3/uL Low 1.00-4.00 [facility] Comment on above: Order Comment: Speci men Type: BLOOD SPECIMENOrdering Facility: [facility] Address: [address] [place] [address] Performed By: #### 5 7021-8 ####[facility] [id number] [place] [address] [place] Lymphocytes/100 WBC (Bld) 12.4 % Normal [facility] Comment on above: Order Comment: Speci men Type: BLOOD SPECIMENOrdering Facility: [facility] Address: [address] [place] [address] Performed By: #### 5 7021-8 ####[facility] [id number] [place] [address] [place] MCH (RBC) [Entitic mass] 31.9 pg Normal 26.0-34.0 [facility] Comment on above: Order Comment: Speci men Type: BLOOD SPECIMENOrdering Facility: [facility] Address: [address] [place] [address] Performed By: #### 5 7021-8 ####[facility] [id number] [place] [address] [place] MCHC (RBC) [Mass/Vol] 34.6 g/dL Normal 30.5-36.0 [facility] Comment on above: Order Comment: Speci men Type: BLOOD SPECIMENOrdering Facility: [facility] Address: [address] [place] [address] Performed By: #### 5 7021-8 ####[facility] [id number] [place] [address] [place] MCV (RBC) [Entitic vol] 92.3 fL Normal 80.0-100.0 C [facility] Comment on above: Order Comment: Speci men Type: BLOOD SPECIMENOrdering Facility: [facility] Address: [address] [place] [address] Performed By: #### 5 7021-8 ####[facility] [id number] [place] [id number] [place] Monocytes (Bld) [#/Vol] 0.68 10*3/uL Normal <0.87 [facility] Comment on above: Order Comment: Speci men Type: BLOOD SPECIMENOrdering Facility: [facility] Address: [address] [place] [address] Performed By: #### 5 7021-8 ####[facility] [id number] [facility] [place] [address] [place] Monocytes/100 WBC (Bld) 11.3 % Normal [facility] Comment on above: Order Comment: Speci men Type: BLOOD SPECIMENOrdering Facility: [facility] Address: [address] [place] [address] Performed By: #### 5 7021-8 ####[facility] [id number] [place] [address] [place] Neutrophils (Bld) [#/Vol] 4.28 10*3/uL Normal 1.45-7.50 [facility] Comment on above: Order Comment: Speci men Type: BLOOD SPECIMENOrdering Facility: [facility] Address: [address] [place] [address] Performed By: #### 5 7021-8 ####[facility] [id number] [facility] [place] [address] [place] Neutrophils/100 WBC (Bld) 71.1 % Normal [facility] Comment on above: Order Comment: Speci men Type: BLOOD SPECIMENOrdering Facility: [facility] Address: [address] [place] [address] Performed By: #### 5 7021-8 ####[facility] [id number] [place] [address] [place] Nucleated RBC (Bld) [#/Vol] 10*3/uL Normal <0.01 [facility] Comment on above: Order Comment: Speci men Type: BLOOD SPECIMENOrdering Facility: [facility] Address: [address] [place] [address] Performed By: #### 5 7021-8 ####[facility] [id number] [place] [address] [place] Nucleated RBC/100 WBC (Bld) [Ratio] 0.0 /100 WBC Normal [facility] Comment on above: Order Comment: Speci men Type: BLOOD SPECIMENOrdering Facility: [facility] Address: [address] [place] [address] Performed By: #### 5 7021-8 ####[facility] [id number] [place] [address] [place] Platelet mean volume (Bld) [Entitic vol] 11.8 fL Normal 9.0-12.7 [facility] Comment on above: Order Comment: Speci men Type: BLOOD SPECIMENOrdering Facility: [facility] Address: [address] [place] [address] Performed By: #### 5 7021-8 ####[facility] [id number] [place] [address] [place] Platelets (Bld) [#/Vol] 59 10*3/uL Low 150-400 C [facility] Comment on above: Order Comment: Speci men Type: BLOOD SPECIMENOrdering Facility: [facility] Address: [address] [place] [address] Result Comment: No c lot detected.Results checked and verified. Performed By: #### 5 7021-8 ####[facility] [id number] [place] [address] [place] RBC (Bld) [#/Vol] 2.60 10*6/uL Low 4.20-6.00 [facility] Comment on above: Order Comment: Speci men Type: BLOOD SPECIMENOrdering Facility: [facility] Address: [address] [place] [address] Performed By: #### 5 7021-8 ####[facility]CL[facility] [id number] [address] [address] [place] WBC (Bld) [#/Vol] 6.03 10*3/uL Normal 3.70-11.00 [facility] Comment on above: Order Comment: Speci men Type: BLOOD SPECIMENOrdering Facility: [facility] Address: [address] [place] [address] Performed By: #### 5 7021-8 ####[facility] [id number] [place] [id number] [place] CONSULT PROGon 11-16-2024 CONSULT PROG Normal [facility] CYTOLOGY NON-GYNon AP DISCLAIMER Normal [facility] Comment on above: Order Comment: Speci men Type: FLUID SPECIMENOrdering Facility: [facility] Address: [address] [place] [address] Result Comment: Shellie pugh Developed Test (LDT) Disclaimer:Performance characteristics of immunohistochemical, immunofluorescent, and chromogenic in-situ hybridization tests have been determined by the performing laboratory within [facility] Pathology and Laboratory Medicine Department ([facility], [facility], [facility], [facility], [facility], [facility], or [facility]) in a manner consistent with CLIA requirements. One or more of these tests may not have been cleared or approved by the FDA. [facility] is regulated under CLIA as qualified to perform high-complexity testing. These tests are used for clinical purposes. These should not be regarded as investigational or for research. Positive and negative controls stain appropriately. Performed By: #### C YTONON ####[facility] [id number] [place] [id number] [place] CASE REPORT Normal [facility] Comment on above: Order Comment: Speci men Type: FLUID SPECIMENOrdering Facility: [facility] Address: [address] [place] [address] Result Comment: Medi santiago Cytology Report Case: [id number] Provider: Young Cruz MD Collected: 11/16/2024 08:42 AMOrdering Location: [place] [address] Received: 11/16/2024 06:20 PMPathologist: Stefani Mcneal MDSpecimen: Peritoneal Fluid. Performed By: #### C YTONON ####[facility] [id number] [place] [address] [place] CLINICAL HISTORY Cirrhosis with ascites Normal [facility] Comment on above: Order Comment: Speci men Type: FLUID SPECIMENOrdering Facility: [facility] Address: [address] [place] [address] Performed By: #### C YTONON ####[facility] [id number] [address] [place] FINAL DIAGNOSIS Normal [facility] Comment on above: Order Comment: Speci men Type: FLUID SPECIMENOrdering Facility: [facility] Address: [address] [place] [address] Result Comment: A - Peritoneal Fluid Negative for malignant cells. Chronic inflammation.The following cell blocks were associated with this case:A1 Cell Block, Alcohol Fixed at 1223 EDT Performed By: #### C YTONON ####[facility] [id number] [address] [place] FINAL PERFORMING LAB Normal [facility] Comment on above: Order Comment: Speci men Type: FLUID SPECIMENOrdering Facility: [facility] Address: [address] [place] [address] Result Comment: Tech nical component, paving crew foreman screening performed at: [facility], [address] [place] [address] CLIA: [id number] interpretation performed at: [facility], [address] [place], [place] [address] CLIA# [id number] Director: Titi Voss MD Performed By: #### C YTONON ####[facility] [id number] [place] [address] [place] GROSS DESCRIPTION Normal [facility] Comment on above: Order Comment: Speci men Type: FLUID SPECIMENOrdering Facility: [facility] Address: [address] [place] [address] Result Comment: A. P eritoneal Fluid.1450 cc opaque red fluid . ThinPrep and Cell Block prepared. Performed By: #### C YTONON ####[facility] [id number] [place] [address] [place] ECG COMPLETEon 11-16-2024 ECG COMPLETE Normal [facility] Fibrinogen PPP-mCncon 2024 Fibrinogen Coag (PPP) [Mass/Vol] 127 mg/dL Low 200-400 [facility] Comment on above: Order Comment: Speci men Type: BLOOD SPECIMENOrdering Facility: [facility] Address: [address] [place] [address] Performed By: #### 3 255-7, 63914-4 ####[facility] [id number] [place] [address] [place] Hepatic function 2000 panelo n 11-16-2024 Albumin [Mass/Vol] 2.8 g/dL Low 3.9-4.9 [facility] Comment on above: Order Comment: Speci men Type: BLOOD SPECIMENOrdering Facility: [facility] Address: [address] [place] [address] Performed By: #### 2 4321-2, 89501-3, 2777-1 ####[facility] [id number] [place] [address] [place] ALP [Catalytic activity/Vol] 295 U/L High 38-113 [facility] Comment on above: Order Comment: Speci men Type: BLOOD SPECIMENOrdering Facility: [facility] Address: [address] [place] [address] Performed By: #### 2 4321-2, 87040-8, 2776- ####[facility] [id number] [place] [address] [place] ALT [Catalytic activity/Vol] 38 U/L Normal 10-54 [facility] Comment on above: Order Comment: Speci men Type: BLOOD SPECIMENOrdering Facility: [facility] Address: [address] [place] [address] Performed By: #### 2 4321-2, 69401-9, 277- ####[facility] [id number] [place] [address] [place] AST [Catalytic activity/Vol] 88 U/L High 14-40 [facility] Comment on above: Order Comment: Speci men Type: BLOOD SPECIMENOrdering Facility: [facility] Address: [address] [place] [address] Performed By: #### 2 4321-2, 74938-8, 2776-08 ####[facility] [id number] [place] [address] [place] Bilirubin [Mass/Vol] 1.8 mg/dL High 0.2-1.3 [facility] Comment on above: Order Comment: Speci men Type: BLOOD SPECIMENOrdering Facility: [facility] Address: [address] [place] [address] Performed By: #### 2 4321-2, 00364-7, 2776- ####[facility] [id number] [place] [address] [place] Bilirubin.conjugated [Mass/Vol] 0.9 mg/dL High <0.3 [facility] Comment on above: Order Comment: Speci men Type: BLOOD SPECIMENOrdering Facility: [facility] Address: [address] [place] [address] Performed By: #### 2 4321-2, 33957-4, 2777-1 ####[facility] [id number] [address] [place] [address] [place] Protein [Mass/Vol] 5.5 g/dL Low 6.3-8.0 [facility] Comment on above: Order Comment: Speci men Type: BLOOD SPECIMENOrdering Facility: [facility] Address: [address] [place] [address] Performed By: #### 2 4321-2, 80934-0, 2777-1 ####[facility] [id number] [address], [place] [address] [place] MANUAL DIFFERENTIAL, BODY FL UIDon 11-16-2024 DIF TTL, BODY FLUID 100 cells counted Normal [facility] Comment on above: Order Comment: Speci men Type: FLUID SPECIMENOrdering Facility: [facility] Address: [address] [place] [address] Performed By: #### C CBF, [id number] ####[facility] [id number] [address], [facility]95 [place] LYMPH%, BF 47 % High 18-36 [facility] Comment on above: Order Comment: Speci men Type: FLUID SPECIMENOrdering Facility: [facility] Address: [address] [place] [address] Performed By: #### C CBF, [id number] ####[facility] [id number] [address] [place] [address] [place] MACRO%, BF 6 % Low 64-80 [facility] Comment on above: Order Comment: Speci men Type: FLUID SPECIMENOrdering Facility: [facility] Address: [address] [place] [address] Performed By: #### C CBF, [id number] ####[facility] [id number] [address] [place] [address] [place] MESO %, BF 25 % High 0-2 [facility] Comment on above: Order Comment: Speci men Type: FLUID SPECIMENOrdering Facility: [facility] Address: [address] [place] [address] Performed By: #### C CBF, [id number] ####[facility] [id number] [place] [address] [place] MONO% BF 8 % Normal [facility] Comment on above: Order Comment: Speci men Type: FLUID SPECIMENOrdering Facility: [facility] Address: [address] [place] [address] Performed By: #### C CBF, [id number] ####[facility] [id number] [place] [address] [place] NEUT%, BF 14 % High 0-1 [facility] Comment on above: Order Comment: Speci men Type: FLUID SPECIMENOrdering Facility: [facility] Address: [address] [place] [address] Performed By: #### C CBF, [id number] ####[facility] [id number] [place] [address] [place] NURSING PROGon 11-16-2024 NURSING PROG Normal [facility] NURSING PROG Normal [facility] PT panel Coag (PPP)on 2024 INR Coag (PPP) [Relative time] 2.1 {INR} High 0.9-1.3 [facility] Comment on above: Order Comment: Speci men Type: BLOOD SPECIMENOrdering Facility: [facility] Address: [address] [place] [address] Result Comment: Sarah min K Antagonist (VKA) Therapeutic Range: INR 2 to 3 (Target INR of 2.5)Note: For patients treated with VKA drugs, such as warfarin, the [place] [employer] 2012 Guideline recommends [...] al. Chest 2012, 141:7S-47SNishimura RA, et al. [facility] 2017, 70: 252-289 Performed By: #### 3 4528-0 ####[facility] [id number] [place] [address] [place] PT Coag (PPP) [Time] 21.5 s High 9.7-13.0 [facility] Comment on above: Order Comment: Ezekiel ramirez Type: BLOOD SPECIMENOrdering Facility: [facility] Address: [address] [place] [address] Performed By: #### 3 4528-0 ####[facility] [id number] [address] [place] INR Coag (PPP) [Relative time] 2.0 {INR} High 0.9-1.3 [facility] Comment on above: Order Comment: Ezekiel ramirez Type: BLOOD SPECIMENOrdering Facility: [facility] Address: [address] [place] [address] Result Comment: Sarah min K Antagonist (VKA) Therapeutic Range: INR 2 to 3 (Target INR of 2.5)Note: For patients treated with VKA drugs, such as warfarin, the [place] [employer] 2012 Guideline recommends [...] al. Chest 2012, 141:7S-47SNishimura RA, et al. [facility] 2017, 70: 252-289 Performed By: #### 3 255-7, 51031-7 ####[facility] [id number] [place] [address] [place] PT Coag (PPP) [Time] 20.3 s High 9.7-13.0 [facility] Comment on above: Order Comment: Speci men Type: BLOOD SPECIMENOrdering Facility: [facility] Address: [address] [place] [address] Performed By: #### 3 255-7, 65781-6 ####[facility] [id number] [place] [address] [place] Phosphate SerPl-mCncon 11-16 Phosphate [Mass/Vol] 2.3 mg/dL Low 2.7-4.8 [facility] Comment on above: Order Comment: Speci men Type: BLOOD SPECIMENOrdering Facility: [facility] Address: [address] [place] [address] Performed By: #### 2 4321-2, 63151-9, 2777-1 ####[facility] [id number] [place] [address] [place] Prot Fld-mCncon 11-16-2024 Protein (Body fld) [Mass/Vol] 0.5 g/dL Normal See Comment [facility] Comment on above: Order Comment: Speci men Type: FLUID SPECIMENOrdering Facility: [facility] Address: [address] [place] [address] Result Comment: Sero us fluids: Effusions are [...] document C49A. PAULETTE Diaz: Clinical Laboratory Standards [place]: 2007. Performed By: #### 1 795-4, 2881-1, 1747-5 ####[facility] [id number] [place] [address] [place] THERAPY NTon 11-16-2024 THERAPY NT Normal [facility] THERAPY NT Normal [facility] BLOOD TB SCREENon 11-15-2024 M. tuberculosis tuberculin stim IFN-g Ql (Bld) Indeterminate Normal [facility] Comment on above: Order Comment: Speci men Type: BLOOD SPECIMENOrdering Facility: [facility] Address: [address] [place] [address] Performed By: #### I NFTBP ####[facility] [id number] [place] [address] [place] MITOGEN MINUS NIL 0.25 IU/mL Low >=0.50 [facility] Comment on above: Order Comment: Speci men Type: BLOOD SPECIMENOrdering Facility: [facility] Address: [address] [place] [address] Performed By: #### I NFTBP ####[facility] [id number] [place] [address] [place] TB GAMMA INTERPRETATION Normal C [facility] Comment on above: Order Comment: Speci men Type: BLOOD SPECIMENOrdering Facility: [facility] Address: [address] [place] [address] Performed By: #### I NFTBP ####[facility] [id number] [place] [address] [place] TB NIL 0.01 IU/mL Normal <=8.00 [facility] Comment on above: Order Comment: Speci men Type: BLOOD SPECIMENOrdering Facility: [facility] Address: [address] [place] [address] Performed By: #### I NFTBP ####[facility] [id number] [place] [address] [place] TB1 AG MINUS NIL 0.00 IU/mL Normal <0.35 [facility] Comment on above: Order Comment: Speci men Type: BLOOD SPECIMENOrdering Facility: [facility] Address: [address] [place] [address] Performed By: #### I NFTBP ####[facility] [id number] [place] [address] [place] TB2 AG MINUS NIL 0.01 IU/mL Normal <0.35 [facility] Comment on above: Order Comment: Speci men Type: BLOOD SPECIMENOrdering Facility: [facility] Address: [address] [place] [address] Performed By: #### I NFTBP ####[facility] [id number] [place] [address] [place] CASE MANAGEMon 11-15-2024 CASE MANAGEM Normal [facility] CASE MANAGEM Normal [facility] CBC W Auto Differential pane l (Bld)on 11-15-2024 Basophils (Bld) [#/Vol] 0.05 10*3/uL Normal <0.11 [facility] Comment on above: Order Comment: Speci men Type: BLOOD SPECIMENOrdering Facility: [facility] Address: [address] [place] [address] Performed By: #### 5 7021-8 ####[facility] [id number] [place] [address] [place] Basophils/100 WBC (Bld) 0.8 % Normal [facility] Comment on above: Order Comment: Speci men Type: BLOOD SPECIMENOrdering Facility: [facility] Address: [address] [place] [address] Performed By: #### 5 7021-8 ####[facility] [id number] [place] [address] [place] Differential cell count method Nom (Bld) Auto Normal [facility] Comment on above: Order Comment: Speci men Type: BLOOD SPECIMENOrdering Facility: [facility] Address: [address] [place] [address] Performed By: #### 5 7021-8 ####[facility] [id number] [place] [address] [place] Eosinophils (Bld) [#/Vol] 0.28 10*3/uL Normal <0.46 [facility] Comment on above: Order Comment: Speci men Type: BLOOD SPECIMENOrdering Facility: [facility] Address: [address] [place] [address] Performed By: #### 5 7021-8 ####[facility] [id number] [address] [facility] Eosinophils/100 WBC (Bld) 4.6 % Normal [facility] Comment on above: Order Comment: Speci men Type: BLOOD SPECIMENOrdering Facility: [facility] Address: [address] [place] [address] Performed By: #### 5 7021-8 ####[facility] [id number] [place] [address] [place] Erythrocyte distribution width (RBC) [Ratio] 16.8 % High 11.5-15.0 [facility] Comment on above: Order Comment: Speci men Type: BLOOD SPECIMENOrdering Facility: [facility] Address: [address] [place] [address] Performed By: #### 5 7021-8 ####[facility] [id number] [place] [address] [place] Hematocrit (Bld) [Volume fraction] 22.9 % Low 39.0-51.0 [facility] Comment on above: Order Comment: Speci men Type: BLOOD SPECIMENOrdering Facility: [facility] Address: [address] [place] [address] Performed By: #### 5 7021-8 ####[facility] [id number] [place] [address] [place] Hemoglobin (Bld) [Mass/Vol] 7.6 g/dL Low 13.0-17.0 [facility] Comment on above: Order Comment: Speci men Type: BLOOD SPECIMENOrdering Facility: [facility] Address: [address] [place] [address] Performed By: #### 5 7021-8 ####[facility] [id number] [place] [address] [place] Immature granulocytes (Bld) [#/Vol] 0.03 10*3/uL Normal <0.10 [facility] Comment on above: Order Comment: Speci men Type: BLOOD SPECIMENOrdering Facility: [facility] Address: [address] [place] [address] Performed By: #### 5 7021-8 ####[facility] [id number] [place] [address] [place] Immature granulocytes/100 WBC (Bld) 0.5 % Normal [facility] Comment on above: Order Comment: Speci men Type: BLOOD SPECIMENOrdering Facility: [facility] Address: [address] [place] [address] Performed By: #### 5 7021-8 ####[facility] [id number] [place] [address] [place] Lymphocytes (Bld) [#/Vol] 0.70 10*3/uL Low 1.00-4.00 [facility] Comment on above: Order Comment: Speci men Type: BLOOD SPECIMENOrdering Facility: [facility] Address: [address] [place] [address] Performed By: #### 5 7021-8 ####[facility] [id number] [place] [address] [place] Lymphocytes/100 WBC (Bld) 11.5 % Normal [facility] Comment on above: Order Comment: Speci men Type: BLOOD SPECIMENOrdering Facility: [facility] Address: [address] [place] [address] Performed By: #### 5 7021-8 ####[facility] [id number] [place] [address] [place] MCH (RBC) [Entitic mass] 30.6 pg Normal 26.0-34.0 [facility] Comment on above: Order Comment: Speci men Type: BLOOD SPECIMENOrdering Facility: [facility] Address: [address] [place] [address] Performed By: #### 5 7021-8 ####[facility] [id number] [place] [address] [place] MCHC (RBC) [Mass/Vol] 33.2 g/dL Normal 30.5-36.0 [facility] Comment on above: Order Comment: Speci men Type: BLOOD SPECIMENOrdering Facility: [facility] Address: [address] [place] [address] Performed By: #### 5 7021-8 ####[facility] [id number] [place] [address] [place] MCV (RBC) [Entitic vol] 92.3 fL Normal 80.0-100.0 C [facility] Comment on above: Order Comment: Speci men Type: BLOOD SPECIMENOrdering Facility: [facility] Address: [address] [place] [address] Performed By: #### 5 7021-8 ####[facility] [id number] [address], [place] [address] [place] Monocytes (Bld) [#/Vol] 0.73 10*3/uL Normal <0.87 [facility] Comment on above: Order Comment: Speci men Type: BLOOD SPECIMENOrdering Facility: [facility] Address: [address] [place] [address] Performed By: #### 5 7021-8 ####[facility] [id number] [address], [place] [address] [place] Monocytes/100 WBC (Bld) 12.0 % Normal [facility] Comment on above: Order Comment: Speci men Type: BLOOD SPECIMENOrdering Facility: [facility] Address: [address] [place] [address] Performed By: #### 5 7021-8 ####[facility] [id number] [address], [facility]95 [place] Neutrophils (Bld) [#/Vol] 4.30 10*3/uL Normal 1.45-7.50 [facility] Comment on above: Order Comment: Speci men Type: BLOOD SPECIMENOrdering Facility: [facility] Address: [address] [place] [address] Performed By: #### 5 7021-8 ####[facility] [id number] [facility] [address], [facility] [facility] [place] Neutrophils/100 WBC (Bld) 70.6 % Normal [facility] Comment on above: Order Comment: Speci men Type: BLOOD SPECIMENOrdering Facility: [facility] Address: [address] [place] [address] Performed By: #### 5 7021-8 ####[facility] LABCLIA [id number] [address] [place] [address] [place] Nucleated RBC (Bld) [#/Vol] 10*3/uL Normal <0.01 [facility] Comment on above: Order Comment: Speci men Type: BLOOD SPECIMENOrdering Facility: [facility] Address: [address] [place] [address] Performed By: #### 5 7021-8 ####[facility] LABCLIA [id number] [place] [address] [place] Nucleated RBC/100 WBC (Bld) [Ratio] 0.0 /100 WBC Normal [facility] Comment on above: Order Comment: Speci men Type: BLOOD SPECIMENOrdering Facility: [facility] Address: [address] [place] [address] Performed By: #### 5 7021-8 ####[facility] LABIA [id number] [place] [address] [place] Platelet mean volume (Bld) [Entitic vol] 12.2 fL Normal 9.0-12.7 [facility] Comment on above: Order Comment: Speci men Type: BLOOD SPECIMENOrdering Facility: [facility] Address: [address] [place] [address] Performed By: #### 5 7021-8 ####[facility] LABIA [id number] [place] [address] [place] Platelets (Bld) [#/Vol] 53 10*3/uL Low 150-400 C [facility] Comment on above: Order Comment: Speci men Type: BLOOD SPECIMENOrdering Facility: [facility] Address: [address] [place] [address] Performed By: #### 5 7021-8 ####[facility] LABCLIA [id number] [place] [address] [place] RBC (Bld) [#/Vol] 2.48 10*6/uL Low 4.20-6.00 [facility] Comment on above: Order Comment: Speci men Type: BLOOD SPECIMENOrdering Facility: [facility] Address: [address] [place] [address] Performed By: #### 5 7021-8 ####[facility] LABCLIA [id number] [place] [address] [place] WBC (Bld) [#/Vol] 6.09 10*3/uL Normal 3.70-11.00 [facility] Comment on above: Order Comment: Speci men Type: BLOOD SPECIMENOrdering Facility: [facility] Address: [address] [place] [address] Performed By: #### 5 7021-8 ####[facility] LABCLIA [id number] [place] [address] [place] CNOVon 11-15-2024 CNOV [...] Comment: Speci men Type: BLOOD SPECIMENOrdering Facility: [facility] Address: [address] [place] [address] Performed By: #### 3 255-7, 21317-0 ####[facility] LABCLIA [id number] [place] [address] [place] Hepatic function 2000 panelo n 11-15-2024 Albumin [Mass/Vol] 2.8 g/dL Low 3.9-4.9 [facility] Comment on above: Order Comment: Speci men Type: BLOOD SPECIMENOrdering Facility: [facility] Address: [address] [place] [address] Performed By: #### 2 4325-3, 37445-0 ####[facility] LABCLIA [id number] [address] [id number] [address] [place] ALP [Catalytic activity/Vol] 277 U/L High 38-113 [facility] Comment on above: Order Comment: Speci men Type: BLOOD SPECIMENOrdering Facility: [facility] Address: [address] [place] [address] Performed By: #### 2 4325-3, 50410-1 ####[facility] LABCLIA [id number] [place] [id number] [place] ALT [Catalytic activity/Vol] 36 U/L Normal 10-54 [facility] Comment on above: Order Comment: Speci men Type: BLOOD SPECIMENOrdering Facility: [facility] Address: [address] [place] [address] Performed By: #### 2 4325-3, 56597-7 ####[facility] LABCLIA [id number] [place] [address] [place] AST [Catalytic activity/Vol] 87 U/L High 14-40 [facility] Comment on above: Order Comment: Speci men Type: BLOOD SPECIMENOrdering Facility: [facility] Address: [address] [place] [address] Performed By: #### 2 4325-3, 48610-5 ####[facility] LABCLIA [id number] [place] [address] [place] Bilirubin [Mass/Vol] 1.6 mg/dL High 0.2-1.3 [facility] Comment on above: Order Comment: Speci men Type: BLOOD SPECIMENOrdering Facility: [facility] Address: [address] [place], [place] [address] Performed By: #### 2 4325-3, 62787-8 ####[facility] LABCLIA [id number] [place] [address] [place] Bilirubin.conjugated [Mass/Vol] 0.9 mg/dL High <0.3 [facility] Comment on above: Order Comment: Speci men Type: BLOOD SPECIMENOrdering Facility: [facility] Address: [address] [place] [address] Performed By: #### 2 4325-3, 79220-8 ####[facility] [id number] [place] [address] [place] Protein [Mass/Vol] 5.4 g/dL Low 6.3-8.0 [facility] Comment on above: Order Comment: Ezekiel ramirez Type: BLOOD SPECIMENOrdering Facility: [facility] Address: [address] [place] [address] Performed By: #### 2 4325-3, 05196-9 ####[facility] [id number] [place] [address] [place] PT panel Coag (PPP)on 2024 INR Coag (PPP) [Relative time] 1.8 {INR} High 0.9-1.3 [facility] Comment on above: Order Comment: Ezekiel ramirez Type: BLOOD SPECIMENOrdering Facility: [facility] Address: [address] [place] [address] Result Comment: Sarah min K Antagonist (VKA) Therapeutic Range: INR 2 to 3 (Target INR of 2.5)Note: For patients treated with VKA drugs, such as warfarin, the [place] [employer] 2012 Guideline recommends [...] 70: 252-289 Performed By: #### 3 255-7, 88190-9 ####[facility]CL[facility] [id number] [facility] [address] [address] [place] PT Coag (PPP) [Time] 18.9 s High 9.7-13.0 [facility] Comment on above: Order Comment: Speci men Type: BLOOD SPECIMENOrdering Facility: [facility] Address: [address] [place] [address] Performed By: #### 3 255-7, 91972-5 ####[facility] LABCLIA [id number] [facility] [address] [address] [place] Renal function 2000 panelon 11-15-2024 Albumin [Mass/Vol] 2.9 g/dL Low 3.9-4.9 [facility] Comment on above: Order Comment: Speci men Type: BLOOD SPECIMENOrdering Facility: [facility] Address: [address] [place] [address] Performed By: #### 2 4325-3, 57233-7 ####[facility] LABCLIA [id number] [address] [address] [place] Anion gap [Moles/Vol] 15 mmol/L Normal 8-15 [facility] Comment on above: Order Comment: Speci men Type: BLOOD SPECIMENOrdering Facility: [facility] Address: [address] [place] [address] Performed By: #### 2 4325-3, 75797-3 ####[facility] LABCLIA [id number] [facility] [address] [address] [place] Calcium [Mass/Vol] 8.4 mg/dL Low 8.5-10.2 [facility] Comment on above: Order Comment: Speci men Type: BLOOD SPECIMENOrdering Facility: [facility] Address: [address] [place] [address] Performed By: #### 2 4325-3, 94022-8 ####[facility] LABCLIA [id number] [place] [id number] [place] Chloride [Moles/Vol] 99 mmol/L Normal 98-107 [facility] Comment on above: Order Comment: Speci men Type: BLOOD SPECIMENOrdering Facility: [facility] Address: [address] [place] [address] Performed By: #### 2 4325-3, 27359-7 ####[facility] LABIA [id number] [place] [address] [place] CO2 [Moles/Vol] 14 mmol/L Low 22-30 [facility] Comment on above: Order Comment: Speci men Type: BLOOD SPECIMENOrdering Facility: [facility] Address: [address] [place] [address] Performed By: #### 2 4325-3, 21267-2 ####[facility] LABIA [id number] [place] [address] [place] Creatinine [Mass/Vol] 0.80 mg/dL Normal 0.73-1.22 [facility] Comment on above: Order Comment: Speci men Type: BLOOD SPECIMENOrdering Facility: [facility] Address: [address] [place] [address] Performed By: #### 2 4325-3, 61341-1 ####[facility] LABIA [id number] [address] [facility] Creatinine and Glomerular filtration rate.predicted panel (S/P/Bld) 103 mL/min/1.73m??? Normal >=60 [facility] Comment on above: Order Comment: Speci men Type: BLOOD SPECIMENOrdering Facility: [facility] Address: [address] [place] [address] Result Comment: Patric mated Glomerular Filtration Rate [...] actual GFR. Performed By: #### 2 4325-3, 02823-5 ####[facility] LABIA [id number] [address] [address] [place] Glucose [Mass/Vol] 272 mg/dL High 74-99 [facility] Comment on above: Order Comment: Spechelder men Type: BLOOD SPECIMENOrdering Facility: [facility] Address: [address] [place] [address] Result Comment: The [place] [employer] (ADA) provides guidance for cutoff [...] Standards of Medical Care in Diabetes 2016, [place] [employer]. Diabetes Care. 2016.39(Suppl 1). Performed By: #### 2 4325-3, 21422-9 ####[facility] LABIA [id number] [address] [address] [place] Phosphate [Mass/Vol] 2.2 mg/dL Low 2.7-4.8 [facility] Comment on above: Order Comment: Ezekiel ramirez Type: BLOOD SPECIMENOrdering Facility: [facility] Address: [address] [place] [address] Performed By: #### 2 4325-3, 23009-2 ####[facility] LABIA [id number] [facility] [address] [address] [place] Potassium [Moles/Vol] 3.8 mmol/L Normal 3.7-5.1 [facility] Comment on above: Order Comment: Speci men Type: BLOOD SPECIMENOrdering Facility: [facility] Address: [address] [place] [address] Performed By: #### 2 4325-3, 05189-0 ####[facility] LABCLIA [id number] [place] [address] [place] Sodium [Moles/Vol] 128 mmol/L Low 136-144 [facility] Comment on above: Order Comment: Speci men Type: BLOOD SPECIMENOrdering Facility: [facility] Address: [address] [place] [address] Performed By: #### 2 4325-3, 02094-6 ####[facility] LABCLIA [id number] [place] [address] [place] Urea nitrogen [Mass/Vol] 11 mg/dL Normal 9-24 [facility] Comment on above: Order Comment: Speci men Type: BLOOD SPECIMENOrdering Facility: [facility] Address: [address] [place] [address] Performed By: #### 2 4325-3, 78598-5 ####[facility] LABCLIA [id number] [place] [address] [place] SEPSIS LACTATEon 11-15-2024 Lactate [Moles/Vol] 3.2 mmol/L High <=2.0 [facility] Comment on above: Order Comment: Speci men Type: BLOOD SPECIMENOrdering Facility: [facility] Address: [address] [place] [address] Performed By: #### S LACT ####[facility] LABCLIA [id number] [place] [address] [place] SOCIAL WORKon 11-15-2024 SOCIAL WORK Normal [facility] THERAPY NTon 11-15-2024 THERAPY NT Normal [facility] THERAPY NT Normal [facility] TYPE + SCREENon 11-15-2024 ABO O Normal [facility] Comment on above: Order Comment: Speci men Type: BLOOD SPECIMENOrdering Facility: [facility] Address: [address] [place] [address] Performed By: #### T SCR ####[facility] BANKCLIA [id number] [address] [address] [place] Rh Nom (Bld) Positive Normal [facility] Comment on above: Order Comment: Speci men Type: BLOOD SPECIMENOrdering Facility: [facility] Address: [address] [place] [address] Performed By: #### T SCR ####[facility] BLO[facility] BANKCLIA [id number] [place] [address] [place] TYPE AND SCREEN EXPIRATION 11/18/2024 23:59 Normal [facility] Comment on above: Order Comment: Speci men Type: BLOOD SPECIMENOrdering Facility: [facility] Address: [address] [place] [address] Performed By: #### T SCR ####CC [facility] BLOOD BANKCLIA [id number] [place] [id number] [place] US ASCITES SURVEYon 11-16-19 ASCITES SURVEY Normal [facility] Basic metabolic 2000 panelon 11-14-2024 Anion gap [Moles/Vol] 11 mmol/L Normal 8-15 [facility] Comment on above: Order Comment: Speci men Type: BLOOD SPECIMENOrdering Facility: [facility] Address: [address] [place] [address] Performed By: #### 2 4321-2, 28709-1, 2777-1, 25382-5 ####[facility] LABCLIA [id number] [place] [address] [place] Calcium [Mass/Vol] 8.9 mg/dL Normal 8.5-10.2 [facility] Comment on above: Order Comment: Speci men Type: BLOOD SPECIMENOrdering Facility: [facility] Address: [address] [place] [address] Performed By: #### 2 4321-2, 57158-2, 2777-1, ####[facility] LABCLIA [id number] [address] [address] [place] Chloride [Moles/Vol] 99 mmol/L Normal 98-107 [facility] Comment on above: Order Comment: Speci men Type: BLOOD SPECIMENOrdering Facility: [facility] Address: [address] [place] [address] Performed By: #### 2 4321-2, 12840-4, 277-, ####[facility] LABCLIA [id number] [place] [id number] [place] CO2 [Moles/Vol] 17 mmol/L Low 22-30 [facility] Comment on above: Order Comment: Speci men Type: BLOOD SPECIMENOrdering Facility: [facility] Address: [address] [place] [address] Performed By: #### 2 4321-2, 48127-9, 277-, ####[facility] LABCLIA [id number] [place] [id number] [place] Creatinine [Mass/Vol] 0.89 mg/dL Normal 0.73-1.22 [facility] Comment on above: Order Comment: Speci men Type: BLOOD SPECIMENOrdering Facility: [facility] Address: [address] [place] [address] Performed By: #### 2 4321-2, 49385-2, 27702-01, ####[facility] LABCLIA [id number] [place] [id number] [place] Creatinine and Glomerular filtration rate.predicted panel (S/P/Bld) 99 mL/min/1.73m??? Normal >=60 [facility] Comment on above: Order Comment: Speci men Type: BLOOD SPECIMENOrdering Facility: [facility] Address: [address] [place] [address] Result Comment: Patric mated Glomerular Filtration Rate [...] actual GFR. Performed By: #### 2 4321-2, 32363-7, 2776-, ####[facility] LABCLIA [id number] [address] [address] [place] Glucose [Mass/Vol] 250 mg/dL High 74-99 [facility] Comment on above: Order Comment: Ezekiel ramirez Type: BLOOD SPECIMENOrdering Facility: [facility] Address: [address] [place] [address] Result Comment: The [place] Diabetes Association (ADA) provides guidance for cutoff [...] Standards of Medical Care in Diabetes 2016, [place] [employer]. Diabetes Care. 2016.39(Suppl 1). Performed By: #### 2 4321-2, 57436-7, 2776-08, ####[facility] LABIA [id number] [address] [address] [place] Potassium [Moles/Vol] 3.6 mmol/L Low 3.7-5.1 [facility] Comment on above: Order Comment: Ezekiel ramirez Type: BLOOD SPECIMENOrdering Facility: [facility] Address: [address] [place] [address] Performed By: #### 2 4321-2, 81675-3, 277-1, ####[facility] LABCLIA [id number] [address] [address] [place] Sodium [Moles/Vol] 127 mmol/L Low 136-144 [facility] Comment on above: Order Comment: Speci men Type: BLOOD SPECIMENOrdering Facility: [facility] Address: [address] [place] [address] Performed By: #### 2 4321-2, 51601-1, 277-, ####[facility] LABCLIA [id number] [place] [address] [place] Urea nitrogen [Mass/Vol] 14 mg/dL Normal 9-24 [facility] Comment on above: Order Comment: Speci men Type: BLOOD SPECIMENOrdering Facility: [facility] Address: [address] [place] [address] Performed By: #### 2 4321-2, 28067-0, 277-, ####[facility] LABCLIA [id number] [place] [address] [place] CBC W Auto Differential pane l (Bld)on 11-14-2024 Basophils (Bld) [#/Vol] 0.04 10*3/uL Normal <0.11 [facility] Comment on above: Order Comment: Speci men Type: BLOOD SPECIMENOrdering Facility: [facility] Address: [address] [place] [address] Performed By: #### 5 7021-8 ####[facility] LABCLIA [id number] [place] [address] [place] Basophils/100 WBC (Bld) 0.7 % Normal C [facility] Comment on above: Order Comment: Speci men Type: BLOOD SPECIMENOrdering Facility: [facility] Address: [address] [place] [address] Performed By: #### 5 7021-8 ####[facility] LABCLIA [id number] [place] [address] [place] Differential cell count method Nom (Bld) Auto Normal [facility] Comment on above: Order Comment: Speci men Type: BLOOD SPECIMENOrdering Facility: [facility] Address: [address] [place] [address] Performed By: #### 5 7021-8 ####[facility] LABCLIA [id number] [place] [address] [place] Eosinophils (Bld) [#/Vol] 0.23 10*3/uL Normal <0.46 [facility] Comment on above: Order Comment: Speci men Type: BLOOD SPECIMENOrdering Facility: [facility] Address: [address] [place] [address] Performed By: #### 5 7021-8 ####[facility] LABCLIA [id number] [place] [address] [place] Eosinophils/100 WBC (Bld) 4.1 % Normal [facility] Comment on above: Order Comment: Speci men Type: BLOOD SPECIMENOrdering Facility: [facility] Address: [address] [place] [address] Performed By: #### 5 7021-8 ####[facility] LABCLIA [id number] [place] [address] [place] Erythrocyte distribution width (RBC) [Ratio] 16.3 % High 11.5-15.0 [facility] Comment on above: Order Comment: Speci men Type: BLOOD SPECIMENOrdering Facility: [facility] Address: [address] [place] [address] Performed By: #### 5 7021-8 ####[facility] LABCLIA [id number] [place] [id number] [place] Hematocrit (Bld) [Volume fraction] 22.7 % Low 39.0-51.0 [facility] Comment on above: Order Comment: Speci men Type: BLOOD SPECIMENOrdering Facility: [facility] Address: [address] [place] [address] Performed By: #### 5 7021-8 ####[facility] LABCLIA [id number] [place] [address] [place] Hemoglobin (Bld) [Mass/Vol] 7.9 g/dL Low 13.0-17.0 [facility] Comment on above: Order Comment: Speci men Type: BLOOD SPECIMENOrdering Facility: [facility] Address: [address] [place] [address] Performed By: #### 5 7021-8 ####[facility] LABCLIA [id number] [place] [address] [place] Immature granulocytes (Bld) [#/Vol] 0.04 10*3/uL Normal <0.10 [facility] Comment on above: Order Comment: Speci men Type: BLOOD SPECIMENOrdering Facility: [facility] Address: [address] [place] [address] Performed By: #### 5 7021-8 ####[facility] LABIA [id number] [place] [address] [place] Immature granulocytes/100 WBC (Bld) 0.7 % Normal [facility] Comment on above: Order Comment: Speci men Type: BLOOD SPECIMENOrdering Facility: [facility] Address: [address] [place] [address] Performed By: #### 5 7021-8 ####[facility] LABCLIA [id number] [place] [address] [place] Lymphocytes (Bld) [#/Vol] 0.72 10*3/uL Low 1.00-4.00 [facility] Comment on above: Order Comment: Speci men Type: BLOOD SPECIMENOrdering Facility: [facility] Address: [address] [place] [address] Performed By: #### 5 7021-8 ####[facility] LABCLIA [id number] [place] [address] [place] Lymphocytes/100 WBC (Bld) 12.8 % Normal [facility] Comment on above: Order Comment: Speci men Type: BLOOD SPECIMENOrdering Facility: [facility] Address: [address] [place] [address] Performed By: #### 5 7021-8 ####[facility] LABIA [id number] [place] [address] [place] MCH (RBC) [Entitic mass] 31.7 pg Normal 26.0-34.0 [facility] Comment on above: Order Comment: Speci men Type: BLOOD SPECIMENOrdering Facility: [facility] Address: [address] [place] [address] Performed By: #### 5 7021-8 ####[facility] LABIA [id number] [place] [address] [place] MCHC (RBC) [Mass/Vol] 34.8 g/dL Normal 30.5-36.[address] [facility] Comment on above: Order Comment: Speci men Type: BLOOD SPECIMENOrdering Facility: [facility] Address: [address] [place] [address] Performed By: #### 5 7021-8 ####[facility] LABIA [id number] [place] [address] [place] MCV (RBC) [Entitic vol] 91.2 fL Normal 80.0-100.0 C [facility] Comment on above: Order Comment: Speci men Type: BLOOD SPECIMENOrdering Facility: [facility] Address: [address] [place] [address] Performed By: #### 5 7021-8 ####[facility] LABIA [id number] [place] [address] [place] Monocytes (Bld) [#/Vol] 0.68 10*3/uL Normal <0.87 [facility] Comment on above: Order Comment: Speci men Type: BLOOD SPECIMENOrdering Facility: [facility] Address: [address] [place] [address] Performed By: #### 5 7021-8 ####[facility] LABCLIA [id number] [facility] [place] [address] [place] Monocytes/100 WBC (Bld) 12.1 % Normal [facility] Comment on above: Order Comment: Speci men Type: BLOOD SPECIMENOrdering Facility: [facility] Address: [address] [place] [address] Performed By: #### 5 7021-8 ####[facility] LABCLIA [id number] [facility] [place] [address] [place] Neutrophils (Bld) [#/Vol] 3.92 10*3/uL Normal 1.45-7.50 [facility] [facility] Comment on above: Order Comment: Speci men Type: BLOOD SPECIMENOrdering Facility: [facility] Address: [address] [place] [address] Performed By: #### 5 7021-8 ####[facility] [id number] [place] [address] [place] Neutrophils/100 WBC (Bld) 69.6 % Normal [facility] Comment on above: Order Comment: Speci men Type: BLOOD SPECIMENOrdering Facility: [facility] Address: [address] [place] [address] Performed By: #### 5 7021-8 ####[facility] [id number] [place] [address] [place] Nucleated RBC (Bld) [#/Vol] 10*3/uL Normal <0.01 [facility] Comment on above: Order Comment: Speci men Type: BLOOD SPECIMENOrdering Facility: [facility] Address: [address] [place] [address] Performed By: #### 5 7021-8 ####[facility] [id number] [place] [address] [place] Nucleated RBC/100 WBC (Bld) [Ratio] 0.0 /100 WBC Normal [facility] Comment on above: Order Comment: Speci men Type: BLOOD SPECIMENOrdering Facility: [facility] Address: [address] [place] [address] Performed By: #### 5 7021-8 ####[facility] [id number] [place] [address] [place] Platelet mean volume (Bld) [Entitic vol] 12.1 fL Normal 9.0-12.7 [facility] Comment on above: Order Comment: Speci men Type: BLOOD SPECIMENOrdering Facility: [facility] Address: [address] [place] [address] Performed By: #### 5 7021-8 ####[facility] [id number] [place] [address] [place] Platelets (Bld) [#/Vol] 43 10*3/uL Low 150-400 C [facility] Comment on above: Order Comment: Speci men Type: BLOOD SPECIMENOrdering Facility: [facility] Address: [address] [place] [address] Result Comment: Resu lts checked and verified.No clot detected. Performed By: #### 5 7021-8 ####[facility] [id number] [place] [address] [place] RBC (Bld) [#/Vol] 2.49 10*6/uL Low 4.20-6.00 [facility] Comment on above: Order Comment: Speci men Type: BLOOD SPECIMENOrdering Facility: [facility] Address: [address] [place] [address] Performed By: #### 5 7021-8 ####[facility] [id number] [address] [address] [place] WBC (Bld) [#/Vol] 5.63 10*3/uL Normal 3.70-11.00 [facility] Comment on above: Order Comment: Speci men Type: BLOOD SPECIMENOrdering Facility: [facility] Address: [address] [place] [address] Performed By: #### 5 7021-8 ####[facility] [id number] [place] [id number] [place] Fibrinogen PPP-mCncon 2024 Fibrinogen Coag (PPP) [Mass/Vol] 119 mg/dL Low 200-400 [facility] Comment on above: Order Comment: Speci men Type: BLOOD SPECIMENOrdering Facility: [facility] Address: [address] [place] [address] Performed By: #### 3 255-7, 23920-7 ####[facility] [id number] [place] [address] [place] Hepatic function 2000 panelo n 11-14-2024 Albumin [Mass/Vol] 2.8 g/dL Low 3.9-4.9 [facility] Comment on above: Order Comment: Speci men Type: BLOOD SPECIMENOrdering Facility: [facility] Address: [address] [place] [address] Performed By: #### 2 4321-2, 32366-0, 2777-1, 04771-5 ####[facility] [id number] [address] [address] [place] ALP [Catalytic activity/Vol] 248 U/L High 38-113 [facility] Comment on above: Order Comment: Speci men Type: BLOOD SPECIMENOrdering Facility: [facility] Address: [address] [place] [address] Performed By: #### 2 4321-2, 72336-0, 2777-1, 23455-2 ####[facility] [id number] [address] [address] [place] ALT [Catalytic activity/Vol] 29 U/L Normal 10-54 [facility] Comment on above: Order Comment: Speci men Type: BLOOD SPECIMENOrdering Facility: [facility] Address: [address] [place] [address] Performed By: #### 2 4321-2, 89351-7, 2776-08, ####[facility] [id number] [place] [id number] [place] AST [Catalytic activity/Vol] 62 U/L High 14-40 [facility] Comment on above: Order Comment: Speci men Type: BLOOD SPECIMENOrdering Facility: [facility] Address: [address] [place] [address] Performed By: #### 2 4321-2, 29712-8, 2776-08, ####[facility] [id number] [place] [address] [place] Bilirubin [Mass/Vol] 1.7 mg/dL High 0.2-1.3 [facility] Comment on above: Order Comment: Speci men Type: BLOOD SPECIMENOrdering Facility: [facility] Address: [address] [place] [address] Performed By: #### 2 4321-2, 16517-2, 2776-08, ####[facility] [id number] [place] [id number] [place] Bilirubin.conjugated [Mass/Vol] 1.0 mg/dL High <0.3 [facility] Comment on above: Order Comment: Speci men Type: BLOOD SPECIMENOrdering Facility: [facility] Address: [address] [place] [address] Performed By: #### 2 4321-2, 29088-1, 277-, 13263-8 ####[facility] [id number] [address] [address] [place] Protein [Mass/Vol] 5.4 g/dL Low 6.3-8.0 [facility] Comment on above: Order Comment: Ezekiel ramirez Type: BLOOD SPECIMENOrdering Facility: [facility] Address: [address] [place] [address] Performed By: #### 2 4321-2, 69646-5, 2777-1, 10931-4 ####[facility] [id number] [place] [id number] [place] Magnesium SerPl-mCncon 11-14 Magnesium [Mass/Vol] 1.6 mg/dL Low 1.7-2.3 [facility] Comment on above: Order Comment: Speci men Type: BLOOD SPECIMENOrdering Facility: [facility] Address: [address] [place] [address] Performed By: #### 2 4321-2, 49830-4, 2777-, ####[facility] [id number] [place] [address] [place] PT panel Coag (PPP)on 2024 INR Coag (PPP) [Relative time] 1.8 {INR} High 0.9-1.3 [facility] Comment on above: Order Comment: Meggani james Type: BLOOD SPECIMENOrdering Facility: [facility] Address: [address] [place] [address] Result Comment: Sarah min K Antagonist (VKA) Therapeutic Range: INR 2 to 3 (Target INR of 2.5)Note: For patients treated with VKA drugs, such as warfarin, the [place] [employer] 2012 Guideline recommends [...] al. Chest 2012, 141:7S-47SHector RA, et al. [facility] 2017, 70: 252-289 Performed By: #### 3 255-7, 80471-7 ####[facility] [id number] [place] [address] [place] PT Coag (PPP) [Time] 19.2 s High 9.7-13.0 [facility] Comment on above: Order Comment: Speci men Type: BLOOD SPECIMENOrdering Facility: [facility] Address: [address] [place] [address] Performed By: #### 3 255-7, 86857-5 ####[facility]IA [id number] [place] [address] [place] Phosphate SerPl-mCncon 11-14 Phosphate [Mass/Vol] 1.9 mg/dL Low 2.7-4.8 [facility] Comment on above: Order Comment: Speci men Type: BLOOD SPECIMENOrdering Facility: [facility] Address: [address] [place] [address] Performed By: #### 2 4321-2, 48920-7, 2777-1, 69720-0 ####[facility]IA [id number] [place] [id number] [place] URINALYSIS, REFLEX MICROSCOP ICon 11-14-2024 Bacteria LM.HPF (Urine sed) [#/Area] Negative Normal Negative [facility] Comment on above: Order Comment: Speci men Type: URINE SPECIMENOrdering Facility: [facility] Address: [address] [place] [address] Performed By: #### L [id number] ####[facility] [id number] [address] [address] [place] Bilirubin Ql (U) 1+ Abnormal Negative [facility] Comment on above: Order Comment: Speci men Type: URINE SPECIMENOrdering Facility: [facility] Address: [address] [place] [address] Result Comment: Sugg est correlation with clinical findings and serum bilirubin if clinically indicated. Performed By: #### L [id number] ####[facility] [id number] [address] [address] [place] Clarity (Unsp spec) Cloudy Abnormal Clear [facility] Comment on above: Order Comment: Speci men Type: URINE SPECIMENOrdering Facility: [facility] Address: [address] [place] [address] Performed By: #### L [id number] ####[facility] [id number] [place] [address] [place] Color (U) [place] Abnormal Yellow [facility] Comment on above: Order Comment: Speci men Type: URINE SPECIMENOrdering Facility: [facility] Address: [address] [place] [address] Performed By: #### L [id number] ####[facility] [id number] [place] [id number] [place] Epithelial cells LM.HPF (Urine sed) [#/Area] None Seen Normal [facility] Comment on above: Order Comment: Speci men Type: URINE SPECIMENOrdering Facility: [facility] Address: [address] [place] [address] Performed By: #### L [id number] ####[facility]IA [id number] [place] [id number] [place] Glucose Test strip (U) [Mass/Vol] Negative Normal Negative [facility] Comment on above: Order Comment: Speci men Type: URINE SPECIMENOrdering Facility: [facility] Address: [address] [place] [address] Performed By: #### L [id number] ####[facility] [id number] [place] [address] [place] Hemoglobin Ql (U) 3+ Abnormal Negative [facility] Comment on above: Order Comment: Speci men Type: URINE SPECIMENOrdering Facility: [facility] Address: [address] [place] [address] Performed By: #### L [id number] ####[facility] [id number] [place] [address] [place] Hyaline casts (Urine sed) [#/Area] 0 /[LPF] Normal 0 /LPF [facility] Comment on above: Order Comment: Speci men Type: URINE SPECIMENOrdering Facility: [facility] Address: [address] [place] [address] Performed By: #### L [id number] ####[facility] [id number] [place] [address] [place] Ketones Ql (U) Negative Normal Negative [facility] Comment on above: Order Comment: Speci men Type: URINE SPECIMENOrdering Facility: [facility] Address: [address] [place] [address] Performed By: #### L [id number] ####[facility] [id number] [place] [address] [place] Leukocyte esterase Test strip Ql (U) 3+ Abnormal Negative [facility] Comment on above: Order Comment: Speci men Type: URINE SPECIMENOrdering Facility: [facility] Address: [address] [place] [address] Performed By: #### L [id number] ####[facility] [id number] [place] [id number] [place] Nitrite Ql (U) Negative Normal Negative [facility] Comment on above: Order Comment: Speci men Type: URINE SPECIMENOrdering Facility: [facility] Address: [address] [place] [address] Performed By: #### L [id number] ####[facility]IA [id number] [place] [address] [place] pH (U) 6.0 [pH] Normal <8.5 [facility] Comment on above: Order Comment: Speci men Type: URINE SPECIMENOrdering Facility: [facility] Address: [address] [place] [address] Performed By: #### L [id number] ####[facility]IA [id number] [place] [address] [place] Protein (U) [Mass/Vol] 2+ Abnormal Negative Cl [facility] Comment on above: Order Comment: Speci men Type: URINE SPECIMENOrdering Facility: [facility] Address: [address] [place] [address] Performed By: #### L [id number] ####[facility]IA [id number] [place] [address] [place] RBC LM.HPF (Urine sed) [#/Area] /[HPF] Abnormal 0-2 /HPF [facility] Comment on above: Order Comment: Speci men Type: URINE SPECIMENOrdering Facility: [facility] Address: [address] [place] [address] Performed By: #### L [id number] ####[facility]IA [id number] [place] [address] [place] Specific gravity (U) [Rel density] 1.017 Normal 1.005-1.030 [facility] Comment on above: Order Comment: Speci men Type: URINE SPECIMENOrdering Facility: [facility] Address: [address] [place] [address] Performed By: #### L [id number] ####[facility]IA [id number] [place] Urobilinogen Ql (U) 0.2 EU/dL Normal 0.2-1.0 EU/dL [facility] Comment on above: Order Comment: Speci men Type: URINE SPECIMENOrdering Facility: [facility] Address: [address] [place] [address] Performed By: #### L [id number] ####[facility]IA [id number] [place] [address] [place] WBC LM.HPF (Urine sed) [#/Area] /[HPF] Abnormal 0-5 /HPF [facility] Comment on above: Order Comment: Speci men Type: URINE SPECIMENOrdering Facility: [facility] Address: [address] [place] [address] Performed By: #### L [id number] ####[facility]IA [id number] [address] [place] Yeast.budding LM.HPF (Urine sed) [#/Area] Present Abnormal None Seen [facility] Comment on above: Order Comment: Speci men Type: URINE SPECIMENOrdering Facility: [facility] Address: [address] [place] [address] Performed By: #### L [id number] ####[facility]IA [id number] [place] [address] [place] 25(OH)D3 SerPl-mCncon 2024 25-hydroxyvitamin D3 [Mass/Vol] 16.2 ng/mL Low 31.0-80.0 [facility] Comment on above: Order Comment: Speci men Type: BLOOD SPECIMENOrdering Facility: [facility] Address: [address] [place] [address] Performed By: #### 7 852-7, MEASLG, VZVG2, 1989- ####[facility]IA [id number] [place] [address] [place] A-Tocopherol Vit E SerPl-mCn con 11-13-2024 Alpha tocopherol [Mass/Vol] 3.3 mg/L Low 6.0-23.0 [facility] Comment on above: Order Comment: Speci men Type: BLOOD SPECIMENOrdering Facility: [facility] Address: [address] [place] [address] Performed By: #### 2 923-1, 1823-4 ####[facility] [id number] [place] [address] [place] ALPHA-1 ANTITRYPSIN GENOon 0 11-13-2024 HA1AT REVIEWED BY Michelle [facility] Comment on above: Order Comment: Speci men Type: BLOOD SPECIMENOrdering Facility: [facility] Address: [address] [place] [address] Result Comment: Alph a-1 Antitrypsin GenotypingLaboratory Accession Number: [id number]:No Variant Detected in SERPINA1 (PI*MM)Interpretation:DNA testing indicates [...] the two mostcommon pathogenic variants: S (c.863A>T, p.Ole058Lvj, g.70909523), Z(c.1096G>A, p.Row294Usy, g.38071868), and the rarer variants: F(c.739C>T, p.Njs990Dqj, g.37396236), I (c.187C>T, p.Egm03Smt,g.08410149).Limitations:This Laboratory Developed Test (LDT) is designed to [...] was developed and its performance characteristics determinedby [facility]'s [facility]. Ithas not been cleared or approved by the FDA. [facility] is regulated under CLIAas certified to perform high-complexity testing. This test is used forclinical purposes. It should not be regarded as investigational or forresearch.Test performed at [facility], [address] [facility], [id number]. CLIA Number: [id number]:1) Kait RA, Samir G, Essence ML, Ilan M, Kai CE, K,Jadyn DK, Princess SL, Suman GOMEZ, Ivania OliveiraK, Haider C, Renée J.The Diagnosis and Management of Alpha-1 Antritrypsin Deficiency inthe Adult. Chronic Obstr Pulm Dis. 2016 Jan 07;3:668-682.2) Renee BLAND, Linsey ON, Rachele ER, Khushi DG. a1-Antitrypsinphenotypes and associated serum protein concentrations in a largeclinical population. Chest.2013 Nov;143(4):1000-8.3) Elmo Marte, Toña NA, Brad CR, Jennifer FJ, Salvador SJ, Nicole. Molecular characterisation of three ezdew-6-gzgnukxqhal deficiencyvariants: proteinase inhibitor (Pi) nullcardiff (Pfv483----Zih);PiMmalton (Iiv95----patcyvrh) and PiI (Qrx27----Vpl). Hum Trisha. 1988Dec;84(1):55-8.4) Flor EK and Kait HIRSCH. Clinical practice.Alpha1-antitrypsin deficiency. N Engl J Med. 2008;360(40)4415-14.5) Margot NJ, Kwame F, Prakash HIRSCH. The significance of the F variantof ynwrd-6-lxakbwhoetr and unique case report of a PiFF homozygote.[facility] Pulm Med. 2014 Mar 10;14:132.6) Ivania OliveiraK, Elena FL, and Jaziel Carlson. Alpha-1 AntitrypsinDeficiency. 2005May 30 [Updated 2017 August 22]. In: Juanito RA, Barbara, Nemesio TO, et al., editors. GeneReviews [Internet]. [place] ([place]):[facility]; 1527-8813. Available from:http://www.ncbi.nlm.nih.gov/books/DGN5397/Interpretation performed at remote location (R0A1) by Fifi España MD Performed By: #### H A1AT ####[facility] [id number] [place] [address] [place] ANES POSTPROC EVALon 025 ANES POSTPROC EVAL Normal [facility] ANES PRE-OPon 11-13-2024 ANES PRE-OP Normal [facility] Alpha tocopherol [Mass/Vol]o n 11-13-2024 Beta+gamma tocopherol [Mass/Vol] 0.6 mg/L Normal 0.3-3.2 [facility] Comment on above: Order Comment: Speci men Type: BLOOD SPECIMENOrdering Facility: [facility] Address: [address] [place] [address] Result Comment: This test was developed, and its performance characteristics determined by the [facility] Department of Pathology and Laboratory Medicine. It has not been cleared or approved by the FDA. The [facility] Department of Pathology and Laboratory Medicine is regulated under CLIA as qualified to perform high-complexity testing. This test is used for clinical purposes. It should not be regarded as investigational or for research. Performed By: #### 2 923-1, 1823-4 ####[facility]IA [id number] [place] [address] [place] Basic metabolic 2000 panelon 11-13-2024 Anion gap [Moles/Vol] 9 mmol/L Normal 8-15 [facility] Comment on above: Order Comment: Speci men Type: BLOOD SPECIMENOrdering Facility: [facility] Address: [address] [place] [address] Performed By: #### 2 4321-2, 35479-0, 19551-7, 60590-4 ####[facility] LABIA [id number] [place] [address] [place] Calcium [Mass/Vol] 9.1 mg/dL Normal 8.5-10.2 [facility] Comment on above: Order Comment: Speci men Type: BLOOD SPECIMENOrdering Facility: [facility] Address: [address] [place] [address] Performed By: #### 2 4321-2, 49300-9, 07196-9, 58809-9 ####[facility]IA [id number] [place] [address] [place] Chloride [Moles/Vol] 99 mmol/L Normal 98-107 [facility] Comment on above: Order Comment: Speci men Type: BLOOD SPECIMENOrdering Facility: [facility] Address: [address] [place] [address] Performed By: #### 2 4321-2, 60605-5, 25409-5, 01368-7 ####[facility] [id number] [place] [id number] [place] CO2 [Moles/Vol] 16 mmol/L Low 22-30 [facility] Comment on above: Order Comment: Speci men Type: BLOOD SPECIMENOrdering Facility: [facility] Address: [address] [place] [address] Performed By: #### 2 4321-2, 01009-0, 21052-1, 33289-5 ####[facility] [id number] [place] [address] [place] Creatinine [Mass/Vol] 1.10 mg/dL Normal 0.73-1.22 [facility] Comment on above: Order Comment: Speci men Type: BLOOD SPECIMENOrdering Facility: [facility] Address: [address] [place] [address] Performed By: #### 2 4321-2, 80471-1, 18286-9, 67903-9 ####[facility] [id number] [place] [address] [place] Creatinine and Glomerular filtration rate.predicted panel (S/P/Bld) 78 mL/min/1.73m??? Normal >=60 [facility] Comment on above: Order Comment: Speci men Type: BLOOD SPECIMENOrdering Facility: [facility] Address: [address] [place] [address] Result Comment: Patric mated Glomerular Filtration Rate [...] actual GFR. Performed By: #### 2 4321-2, 25557-6, 50566-0, 36611-9 ####[facility] [id number] [place] [id number] [place] Glucose [Mass/Vol] 278 mg/dL High 74-99 [facility] Comment on above: Order Comment: Speci men Type: BLOOD SPECIMENOrdering Facility: [facility] Address: [address] [place] [address] Result Comment: The [place] [employer] (ADA) provides guidance for cutoff [...] Standards of Medical Care in Diabetes 2016, [place] [employer]. Diabetes Care. 2016.39(Suppl 1). Performed By: #### 2 4321-2, 07338-7, 51759-6, 96171-6 ####[facility] [id number] [place] [id number] [place] Potassium [Moles/Vol] 4.1 mmol/L Normal 3.7-5.1 [facility] Comment on above: Order Comment: Speci men Type: BLOOD SPECIMENOrdering Facility: [facility] Address: [address] [place] [address] Performed By: #### 2 4321-2, 91569-0, 55361-6, 43747-6 ####[facility]IA [id number] [place] [id number] [place] Sodium [Moles/Vol] 124 mmol/L Low 136-144 [facility] Comment on above: Order Comment: Speci men Type: BLOOD SPECIMENOrdering Facility: [facility] Address: [address] [place] [address] Performed By: #### 2 4321-2, 69558-5, 16213-4, 94889-6 ####[facility] [id number] [place] [address] [place] Urea nitrogen [Mass/Vol] 20 mg/dL Normal 9-24 [facility] Comment on above: Order Comment: Speci men Type: BLOOD SPECIMENOrdering Facility: [facility] Address: [address] [place] [address] Performed By: #### 2 4321-2, 97315-1, 13239-7, 02961-2 ####[facility] [id number] [place] [address] [place] CBC W Auto Differential pane l (Bld)on 11-13-2024 Basophils (Bld) [#/Vol] 10*3/uL Normal <0.11 C [facility] Comment on above: Order Comment: Speci men Type: BLOOD SPECIMENOrdering Facility: [facility] Address: [address] [place] [address] Performed By: #### 5 7021-8 ####[facility] [id number] [place] [address] [place] Basophils/100 WBC (Bld) 0.4 % Normal C [facility] Comment on above: Order Comment: Speci men Type: BLOOD SPECIMENOrdering Facility: [facility] Address: [address] [place] [address] Performed By: #### 5 7021-8 ####[facility] [id number] [place] [address] [place] Differential cell count method Nom (Bld) Auto Normal [facility] Comment on above: Order Comment: Speci men Type: BLOOD SPECIMENOrdering Facility: [facility] Address: [address] [place] [address] Performed By: #### 5 7021-8 ####[facility] [id number] [place] [address] [place] Eosinophils (Bld) [#/Vol] 0.18 10*3/uL Normal <0.46 [facility] Comment on above: Order Comment: Speci men Type: BLOOD SPECIMENOrdering Facility: [facility] Address: [address] [place] [address] Performed By: #### 5 7021-8 ####[facility] [id number] [place] [address] [place] Eosinophils/100 WBC (Bld) 3.3 % Normal [facility] Comment on above: Order Comment: Speci men Type: BLOOD SPECIMENOrdering Facility: [facility] Address: [address] [place] [address] Performed By: #### 5 7021-8 ####[facility] [id number] [place] [address] [place] Erythrocyte distribution width (RBC) [Ratio] 17.0 % High 11.5-15.0 [facility] Comment on above: Order Comment: Speci men Type: BLOOD SPECIMENOrdering Facility: [facility] Address: [address] [place] [address] Performed By: #### 5 7021-8 ####[facility] [id number] [place] [address] [place] Hematocrit (Bld) [Volume fraction] 21.6 % Low 39.0-51.0 [facility] Comment on above: Order Comment: Speci men Type: BLOOD SPECIMENOrdering Facility: [facility] Address: [address] [place] [address] Performed By: #### 5 7021-8 ####[facility] [id number] [place] [id number] [place] Hemoglobin (Bld) [Mass/Vol] 7.4 g/dL Low 13.0-17.0 [facility] Comment on above: Order Comment: Speci men Type: BLOOD SPECIMENOrdering Facility: [facility] Address: [address] [place] [address] Performed By: #### 5 7021-8 ####[facility] [id number] [place] [address] [place] Immature granulocytes (Bld) [#/Vol] 0.04 10*3/uL Normal <0.10 [facility] Comment on above: Order Comment: Speci men Type: BLOOD SPECIMENOrdering Facility: [facility] Address: [address] [place] [address] Performed By: #### 5 7021-8 ####[facility] [id number] [place] [address] [place] Immature granulocytes/100 WBC (Bld) 0.7 % Normal [facility] Comment on above: Order Comment: Speci men Type: BLOOD SPECIMENOrdering Facility: [facility] Address: [address] [place] [address] Performed By: #### 5 7021-8 ####[facility] [id number] [place] [address] [place] Lymphocytes (Bld) [#/Vol] 0.64 10*3/uL Low 1.00-4.00 [facility] Comment on above: Order Comment: Speci men Type: BLOOD SPECIMENOrdering Facility: [facility] Address: [address] [place] [address] Performed By: #### 5 7021-8 ####[facility] [id number] [place] [address] [place] Lymphocytes/100 WBC (Bld) 11.6 % Normal [facility] Comment on above: Order Comment: Speci men Type: BLOOD SPECIMENOrdering Facility: [facility] Address: [address] [place] [address] Performed By: #### 5 7021-8 ####[facility] LABIA [id number] [place] [address] [place] MCH (RBC) [Entitic mass] 31.8 pg Normal 26.0-34.0 [facility] Comment on above: Order Comment: Speci men Type: BLOOD SPECIMENOrdering Facility: [facility] Address: [address] [place] [address] Performed By: #### 5 7021-8 ####[facility] LABIA [id number] [place] [address] [place] MCHC (RBC) [Mass/Vol] 34.3 g/dL Normal 30.5-36.0 [facility] Comment on above: Order Comment: Speci men Type: BLOOD SPECIMENOrdering Facility: [facility] Address: [address] [place] [address] Performed By: #### 5 7021-8 ####[facility] [id number] [place] [address] [place] MCV (RBC) [Entitic vol] 92.7 fL Normal 80.0-100.0 C [facility] Comment on above: Order Comment: Speci men Type: BLOOD SPECIMENOrdering Facility: [facility] Address: [address] [place] [address] Performed By: #### 5 7021-8 ####[facility] [id number] [address] [place] Monocytes (Bld) [#/Vol] 0.68 10*3/uL Normal <0.87 [facility] Comment on above: Order Comment: Speci men Type: BLOOD SPECIMENOrdering Facility: [facility] Address: [address] [place] [address] Performed By: #### 5 7021-8 ####[facility] [id number] [address] [place] Monocytes/100 WBC (Bld) 12.4 % Normal [facility] Comment on above: Order Comment: Speci men Type: BLOOD SPECIMENOrdering Facility: [facility] Address: [address] [place] [address] Performed By: #### 5 7021-8 ####[facility] [id number] [facility] [id number] [place] [address] [place] Neutrophils (Bld) [#/Vol] 3.94 10*3/uL Normal 1.45-7.50 [facility] Comment on above: Order Comment: Speci men Type: BLOOD SPECIMENOrdering Facility: [facility] Address: [address] [place] [address] Performed By: #### 5 7021-8 ####[facility] [id number] [place] [address] [place] Neutrophils/100 WBC (Bld) 71.6 % Normal [facility] Comment on above: Order Comment: Speci men Type: BLOOD SPECIMENOrdering Facility: [facility] Address: [address] [place] [address] Performed By: #### 5 7021-8 ####[facility] [id number] [place] [address] [place] Nucleated RBC (Bld) [#/Vol] 10*3/uL Normal <0.01 [facility] Comment on above: Order Comment: Speci men Type: BLOOD SPECIMENOrdering Facility: [facility] Address: [address] [place] [address] Performed By: #### 5 7021-8 ####[facility] [id number] [place] [id number] [place] Nucleated RBC/100 WBC (Bld) [Ratio] 0.0 /100 WBC Normal [facility] Comment on above: Order Comment: Speci men Type: BLOOD SPECIMENOrdering Facility: [facility] Address: [address] [place] [address] Performed By: #### 5 7021-8 ####[facility] [id number] [place] [address] [place] Platelet mean volume (Bld) [Entitic vol] 11.7 fL Normal 9.0-12.7 [facility] Comment on above: Order Comment: Speci men Type: BLOOD SPECIMENOrdering Facility: [facility] Address: [address] [place] [address] Performed By: #### 5 7021-8 ####[facility] [id number] [place] [address] [place] Platelets (Bld) [#/Vol] 38 10*3/uL Low 150-400 C [facility] Comment on above: Order Comment: Speci men Type: BLOOD SPECIMENOrdering Facility: [facility] Address: [address] [place] [address] Result Comment: Resu lts checked and verified.No clot detected. Performed By: #### 5 7021-8 ####[facility] [id number] [place] [address] [place] RBC (Bld) [#/Vol] 2.33 10*6/uL Low 4.20-6.00 [facility] Comment on above: Order Comment: Speci men Type: BLOOD SPECIMENOrdering Facility: [facility] Address: [address] [place] [address] Performed By: #### 5 7021-8 ####[facility] [id number] [place] [id number] [place] WBC (Bld) [#/Vol] 5.50 10*3/uL Normal 3.70-11.00 [facility] Comment on above: Order Comment: Speci men Type: BLOOD SPECIMENOrdering Facility: [facility] Address: [address] [place] [address] Performed By: #### 5 7021-8 ####[facility] [id number] [place] [address] [place] CMV IgG Qnon 11-13-2024 CMV IGG QUAL Negative Normal Negative [facility] Comment on above: Order Comment: Speci men Type: BLOOD SPECIMENOrdering Facility: [facility] Address: [address] [place] [address] Result Comment: No s erological evidence of past exposure to Cytomegalovirus. Cannot exclude recent infection if the specimen collected within 4-6 weeks after infection. Performed By: #### 7 852-7, MEASLG, VZVG2, 1988-10 ####[facility] [id number] [place] [address] [place] CMV IgG SerPl-aCncon 025 CMV IgG Qn 0.37 U/mL Normal [facility] Comment on above: Order Comment: Speci men Type: BLOOD SPECIMENOrdering Facility: [facility] Address: [address] [place] [address] Result Comment: The magnitude of the measured result is not indicative of the amount of antibody present.U/mL values are interpreted as follows:Negative <0.6Equivocal 0.6 to <0.70Positive >=0.70 Performed By: #### 7 852-7, MEASLG, VZVG2, 1988-10 ####[facility] [id number] [place] [address] [place] CONSULT PROGon 11-13-2024 CONSULT PROG Normal [facility] CYTOLOGY NON-GYNon AP DISCLAIMER Normal [facility] Comment on above: Order Comment: Speci men Type: FLUID SPECIMENOrdering Facility: [facility] Address: [address] [place] [address] Result Comment: Shellie pugh Developed Test (LDT) Disclaimer:Performance characteristics of immunohistochemical, immunofluorescent, and chromogenic in-situ hybridization tests have been determined by the performing laboratory within [facility]'s [facility]ology and Laboratory Medicine Department ([facility], [facility], [facility], [facility], [facility], [facility], or [facility]) in a manner consistent with CLIA requirements. One or more of these tests may not have been cleared or approved by the FDA. [facility] is regulated under CLIA as qualified to perform high-complexity testing. These tests are used for clinical purposes. These should not be regarded as investigational or for research. Positive and negative controls stain appropriately. Performed By: #### C YTONON ####[facility] [id number] [address] [place] CASE REPORT Normal [facility] Comment on above: Order Comment: Speci men Type: FLUID SPECIMENOrdering Facility: [facility] Address: [address] [place] [address] Result Comment: [facility] Cytology Report Case: [id number] Provider: Deb Fox MD Collected: 11/13/2024 02:46 PMOrdering Location: [place] [address] Received: 11/15/2024 05:01 AMPathologist: Foster Newton MDSpecimen: Urine, Midstream Performed By: #### C YTONON ####[facility] LABIA [id number] [address] [place] CLINICAL HISTORY Staghorn calculi, s/ p L sided stenting with hematuria Normal [facility] Comment on above: Order Comment: Speci men Type: FLUID SPECIMENOrdering Facility: [facility] Address: [address] [place] [address] Performed By: #### C YTONON ####[facility] [id number] [address] DIAGNOSIS COMMENT Normal [facility] Comment on above: Order Comment: Speci men Type: FLUID SPECIMENOrdering Facility: [facility] Address: [address] [place] [address] Result Comment: A. F ungal yeast forms are seen, morphologically consistent with Mary species. Clinical correlation is suggested. Performed By: #### C YTONON ####[facility] [id number] [address] [place] FINAL DIAGNOSIS Normal [facility] Comment on above: Order Comment: Speci men Type: FLUID SPECIMENOrdering Facility: [facility] Address: [address] [place] [address] Result Comment: A - Urine, Voided: Negative for high-grade urothelial carcinoma. Abundant acute inflammation (see comment). at 1141 EDT Performed By: #### C YTONON ####[facility] [id number] [address] OF [facility] FINAL PERFORMING LAB Normal [facility] Comment on above: Order Comment: Speci men Type: FLUID SPECIMENOrdering Facility: [facility] Address: [address] [place] [address] Result Comment: Tech nical component, paving crew foreman screening performed at: [facility], [address] [place], [place] [id number] CLIA: [id number] interpretation performed at: [facility], [address] [place] [address] [place] [address] CLIA# [id number] Director: Titi Voss MD Performed By: #### C YTONON ####[facility] [id number] [place] [address] [place] GROSS DESCRIPTION Normal [facility] Comment on above: Order Comment: Speci men Type: FLUID SPECIMENOrdering Facility: [facility] Address: [address] [place] [address] Result Comment: A. U rine, [id number] cc cloudy lexis fluid . ThinPrep prepared. Performed By: #### C YTONON ####[facility] [id number] [place] [address] [place] EBV capsid IgG Qn (S)on 11-02 EBV VCA IGG, QUAL Positive Abnormal Negative [facility] Comment on above: Order Comment: Speci men Type: BLOOD SPECIMENOrdering Facility: [facility] Address: [address] [place] [address] Result Comment: The result suggests recent or past EBV infection. The final interpretation should be done in the context of other EBV serology panel results. Performed By: #### 8 039-0, 7885-7 ####[facility] [id number] [address] [place] Fibrinogen PPP-mCncon 2024 Fibrinogen Coag (PPP) [Mass/Vol] 94 mg/dL Low 200-400 [facility] Comment on above: Order Comment: Speci men Type: BLOOD SPECIMENOrdering Facility: [facility] Address: [address] [place] [address] Result Comment: Samp le checked for clot. Performed By: #### 3 4528-0, 3255-7 ####[facility] LABIA [id number] [address] [place] HBV core Ab Ser Qlon 025 HBV core Ab Ql (S) Negative Normal Negative [facility] Comment on above: Order Comment: Speci men Type: BLOOD SPECIMENOrdering Facility: [facility] Address: [address] [place] [address] Result Comment: No e vidence of current or past infection with Hepatitis B virus. Should recent infection be suspected, repeat testing may be considered 3-4 weeks after this draw. Performed By: #### 3 1201-7, 97465-4, AHAVG, 5195-3, 38926-1 ####[facility] [id number] [place] [address] [place] HBV surface Ab Ql (S)on 11-02 HBV surface Ab Qn (S) <8.00 Normal [facility] Comment on above: Order Comment: Speci men Type: BLOOD SPECIMENOrdering Facility: [facility] Address: [address] [place] [address] Result Comment: <8 m IU/mL: No serological evidence of immunity to Hepatitis B Virus.>/= 8 to <12 mIU/mL: No serological evidence of immunity to Hepatitis B Virus.>/= 12 mIU/mL: Consistent with serological evidence of immunity to Hepatitis B Virus. Performed By: #### 3 1201-7, 75436-1, AHAVG, 5195-3, 24812-8 ####[facility] [id number] [place] [address] [place] HBV surface Ab Ser Qlon 11-02 HBV surface Ab Ql (S) Negative Normal [facility] Comment on above: Order Comment: Speci men Type: BLOOD SPECIMENOrdering Facility: [facility] Address: [address] [place] [address] Result Comment: No s erological evidence of immunity to Hepatitis B Virus. Performed By: #### 3 1201-7, 09993-7, AHAV, 5195-3, 42389-3 ####[facility] [id number] [place] [address] [place] HBV surface Ag Ser Qlon 11-02 HBV surface Ag Ql (S) Negative Normal Negative [facility] Comment on above: Order Comment: Speci men Type: BLOOD SPECIMENOrdering Facility: [facility] Address: [address] [place] [address] Performed By: #### 3 1201-7, 19329-3, AHAV, 5195-3, 71623-8 ####[facility] [id number] [place] [address] [place] HCV Ab Ser Qlon 11-13-2024 HCV Ab Ql (S) Negative Normal Negative [facility] Comment on above: Order Comment: Speci men Type: BLOOD SPECIMENOrdering Facility: [facility] Address: [address] [place] [address] Result Comment: The result suggests no evidence of infection with Hepatitis C virus. Should recent infection be suspected, repeat testing may be considered 4-6 weeks after this draw. Performed By: #### 1 6128-1 ####[facility] [id number] [place] [address] [place] HEPATITIS A ANTIBODY, IGGon 11-13-2024 HAV IgG Ql (S) Negative Normal [facility] Comment on above: Order Comment: Speci men Type: BLOOD SPECIMENOrdering Facility: [facility] Address: [address] [place] [address] Result Comment: No s erological evidence of past exposure to hepatitis A virus or hepatitis A vaccination. Should recent infection be suspected, repeat testing is suggested 3-4 weeks after this draw. Performed By: #### 3 1201-7, 39313-9, AHAVG, 5195-3, 73667-4 ####[facility] [id number] [place] [address] [place] Performed By: #### 7 3752-8, AHAVG, STRSER, MUMPSG ####[facility] [id number] [place] [address] [place] HIV 1+2 Ab IA Qlon HIV 1 and 2 Ab IA.rapid Nom (S/P/Bld) Normal [facility] Comment on above: Order Comment: Speci men Type: BLOOD SPECIMENOrdering Facility: [facility] Address: [address] [place] [address] Result Comment: Test not indicated. Performed By: #### 3 1201-7, 94539-7, AHAVG, 5195-3, 11027-8 ####[facility] [id number] [place] [id number] [place] HIV 1+2 Ab+HIV1 p24 Ag IA Ql Non-Reactive Normal Nonreactive [facility] Comment on above: Order Comment: Speci men Type: BLOOD SPECIMENOrdering Facility: [facility] Address: [address] [place] [address] Performed By: #### 3 1201-7, 09108-2, [facility], 5195-3, 11318-0 ####[facility] [id number] [address] [address] [place] HIV immunoassay testing algorithm interpretation (S/P/Bld) [Interp] Normal [facility] Comment on above: Order Comment: Speci men Type: BLOOD SPECIMENOrdering Facility: [facility] Address: [address] [place] [address] Result Comment: No e vidence of HIV-1 or HIV-2 infection. Should recent infection be suspected, repeat testing may be considered 2-3 weeks after this draw.[place] Rev. Code 3701.243(E): This information has been [...] or diagnoses. Performed By: #### 3 1201-7, 31465-5, [facility], 5195-3, 28869-3 ####[facility] [id number] [address] [address] [place] Hepatic function 2000 panelo n 11-13-2024 Albumin [Mass/Vol] 2.8 g/dL Low 3.9-4.9 [facility] Comment on above: Order Comment: Speci men Type: BLOOD SPECIMENOrdering Facility: [facility] Address: [address] [place] [address] Performed By: #### 2 4321-2, 99076-6, 81337-2, 14153-2 ####[facility] [id number] [address] [address] [place] ALP [Catalytic activity/Vol] 225 U/L High 38-113 [facility] Comment on above: Order Comment: Speci men Type: BLOOD SPECIMENOrdering Facility: [facility] Address: [address] [place] [address] Performed By: #### 2 4321-2, 59736-0, 16483-7, 19578-8 ####[facility] [id number] [place] [address] [place] ALT [Catalytic activity/Vol] 22 U/L Normal 10-54 [facility] Comment on above: Order Comment: Speci men Type: BLOOD SPECIMENOrdering Facility: [facility] Address: [address] [place] [address] Performed By: #### 2 4321-2, 43602-7, 42781-4, 18915-5 ####[facility] LABIA [id number] [place] [address] [place] AST [Catalytic activity/Vol] 36 U/L Normal 14-40 [facility] Comment on above: Order Comment: Speci men Type: BLOOD SPECIMENOrdering Facility: [facility] Address: [address] [place] [address] Performed By: #### 2 4321-2, 04046-9, 61151-9, 05492-3 ####[facility]IA [id number] [place] [id number] [place] Bilirubin [Mass/Vol] 1.8 mg/dL High 0.2-1.3 [facility] Comment on above: Order Comment: Speci men Type: BLOOD SPECIMENOrdering Facility: [facility] Address: [address] [place] [address] Performed By: #### 2 4321-2, 69260-3, 58054-6, 46808-2 ####[facility] [id number] [address] [id number] [address] [place] Bilirubin.conjugated [Mass/Vol] 0.9 mg/dL High <0.3 [facility] Comment on above: Order Comment: Speci men Type: BLOOD SPECIMENOrdering Facility: [facility] Address: [address] [place] [address] Performed By: #### 2 4321-2, 50912-1, 16968-2, 30999-3 ####[facility] [id number] [place] [address] [place] Protein [Mass/Vol] 5.2 g/dL Low 6.3-8.0 [facility] Comment on above: Order Comment: Speci men Type: BLOOD SPECIMENOrdering Facility: [facility] Address: [address] [place] [address] Performed By: #### 2 4321-2, 83825-4, 19353-3, 90684-9 ####[facility] [id number] [place] [address] [place] LIVER REC INIT W/Uon 025 ALLOGEN RESULTS TO FOLLOW See Allogen report to follow Normal [facility] Comment on above: Order Comment: Speci men Type: BLOOD SPECIMENOrdering Facility: [facility] Address: [address] [place] [address] Performed By: #### L RIPW ####[facility] [id number] [place] [address] [place] LPa SerPl-mCncon 11-13-2024 Lipoprotein a [Mass/Vol] mg/dL Normal <30 [facility] [facility] Comment on above: Order Comment: Speci men Type: BLOOD SPECIMENOrdering Facility: [facility] Address: [address] [place] [address] Performed By: #### 1 0835-7 ####[facility] LABCLIA [id number] [place] [id number] [place] Lipid 1996 panelon Cholesterol [Mass/Vol] 52 mg/dL Normal <200 [facility] Comment on above: Order Comment: Speci men Type: BLOOD SPECIMENOrdering Facility: [facility] Address: [address] [place] [address] Result Comment: <200 mg/dL, Desirable 200-239 mg/dL, Borderline high>239 mg/dL, High Performed By: #### 2 4321-2, 77504-7, 41208-7, 09538-4 ####[facility] LABCLIA [id number] [facility] [id number], [place] [address] [place] Cholesterol in HDL [Mass/Vol] 17 mg/dL Low >39 [facility] Comment on above: Order Comment: Speci men Type: BLOOD SPECIMENOrdering Facility: [facility] Address: [address] [place] [address] Result Comment: 40-5 9 mg/dL, Acceptable>59 mg/dL, High: Negative risk factor for coronary heart disease<40 mg/dL, Low: Positive risk factor for coronary heart disease Performed By: #### 2 4321-2, 52311-1, 58414-8, 02805-6 ####[facility] LABCLIA [id number] [facility] [address], [facility]95 [place] Cholesterol in LDL [Mass/Vol] 26 mg/dL Normal <100 [facility] Comment on above: Order Comment: Speci men Type: BLOOD SPECIMENOrdering Facility: [facility] Address: [address] [place] [address] Result Comment: <100 mg/dL, Optimal 100-129 mg/dL, Near optimal/above optimal 130-159 mg/dL, Borderline high 160-189 mg/dL, High>189 mg/dL, Very highSecondary prevention optimal LDL Cholesterol levels are recommended to be < 70 mg/dL Performed By: #### 2 4321-2, 68679-3, 31775-8, 31919-3 ####[facility] LABCLIA [id number] [facility] [id number], [place] [address] [place] Cholesterol in LDL/Cholesterol in HDL [Mass ratio] 1.53 {ratio} Normal <2.54 [facility] Comment on above: Order Comment: Speci men Type: BLOOD SPECIMENOrdering Facility: [facility] Address: [address] [place] [address] Result Comment: Demetrio haines:1. National Cholesterol Education Program ATP III Guideline At-A-Glance Quick Desk Reference: National Heart, Lung, and Blood [place]. National Institutes of Health. 2001: NIH Publication No. 01-3305.2. An International Atherosclerosis Society position paper: global recommendations for the management of dyslipidemia: executive summary, Atherosclerosis. 2014: 232(2):410-413. Performed By: #### 2 4321-2, 02162-2, 08703-0, 05252-0 ####[facility] LABCLIA [id number] [place] [address] [place] Cholesterol in VLDL [Mass/Vol] 9 mg/dL Normal <30 [facility] Comment on above: Order Comment: Meggani men Type: BLOOD SPECIMENOrdering Facility: [facility] Address: [address] [place] [address] Performed By: #### 2 4321-2, 89746-3, 01775-7, 08257-2 ####[facility] LABCLIA [id number] [address] [place] Cholesterol non HDL [Mass/Vol] 35 mg/dL Normal <130 [facility] Comment on above: Order Comment: Meggani men Type: BLOOD SPECIMENOrdering Facility: [facility] Address: [address] [place] [address] Result Comment: <130 mg/dL, Optimal 130-159 mg/dL, Near optimal/above optimal 160-189 mg/dL, Borderline high 190-219 mg/dL, High>219 mg/dL, Very highSecondary prevention optimal non HDL Cholesterol levels are recommended to be <100 mg/dL Performed By: #### 2 4321-2, 43249-0, 29139-8, 28735-9 ####[facility] LABCLIA [id number] [address] [place] Cholesterol.total/Donna sterol in HDL [Mass ratio] 3.06 {ratio} Normal <5.10 [facility] Comment on above: Order Comment: Speci men Type: BLOOD SPECIMENOrdering Facility: [facility] Address: [address] [place] [address] Performed By: #### 2 4321-2, 80230-7, 03647-1, 77004-9 ####[facility] LABCLIA [id number] [address] [place] FASTING TIME 4 hrs Normal [facility] Comment on above: Order Comment: Speci men Type: BLOOD SPECIMENOrdering Facility: [facility] Address: [address] [place] [address] Performed By: #### 2 4321-2, 78354-7, 33031-6, 61401-2 ####[facility] LABCLIA [id number] [place] [address] [place] Triglyceride [Mass/Vol] 45 mg/dL Normal <150 [facility] Comment on above: Order Comment: Speci men Type: BLOOD SPECIMENOrdering Facility: [facility] Address: [address] [place] [address] Result Comment: <150 mg/dL, Normal 150-199 mg/dL, Borderline high 200-499 mg/dL, High>499 mg/dL, Very high Performed By: #### 2 4321-2, 66130-9, 83723-3, 44577-9 ####[facility] LABCLIA [id number] [place] [id number] [place] MUMPS IGG ABon 11-13-2024 MuV IgG Ql (S) Negative Abnormal Positive [facility] Comment on above: Order Comment: Speci men Type: BLOOD SPECIMENOrdering Facility: [facility] Address: [address] [place] [address] Result Comment: The result suggests no history of Mumps vaccination or exposure to Mumps virus, however, some individuals with past history of Mumps vaccination may test negative using this test. Please correlate with past history of vaccination if applicable. Performed By: #### 7 3752-8, AHAVG, STRSER, MUMPSG ####[facility] LABCLIA [id number] [address] [place] NT-proBNP SerPl-ncon 11-13 Natriuretic peptide.B prohormone N-Terminal [Mass/Vol] 1047 pg/mL High <125 [facility] Comment on above: Order Comment: Speci men Type: BLOOD SPECIMENOrdering Facility: [facility] Address: [address] [place] [address] Performed By: #### 2 4321-2, 34929-0, 90569-9, 15472-3 ####[facility] LABCLIA [id number] [place] [address] [place] NURSING PROGon 11-13-2024 NURSING PROG Normal [facility] NURSING PROG Normal [facility] PHOSPHATIDYLETHANOL (PETH)on 11-13-2024 EER PETH See Note Normal [facility] Comment on above: Order Comment: Speci men Type: BLOOD SPECIMENOrdering Facility: [facility] Address: [address] [place] [address] Result Comment: Auth orized individuals can access the Page365 Enhanced Reportwith an Page365 Connect account using the following link.Your local lab can assist you in obtaining the patientreport if you don't have a Connect account.[email or web address] Performed By: #### P ETH ####[facility]IESCLIA [id number] [place] [address] PETH 16:0/18.2 (PLPETH) <10 Normal C [facility] Comment on above: Order Comment: Speci men Type: BLOOD SPECIMENOrdering Facility: [facility] Address: [address] [place] [address] Result Comment: Refe rence ranges are not well established. Performed By: #### P ETH ####[facility]ORATORIESCLIA [id number] [place] [address] PETH 16:0/18:1 (POPETH) <10 Normal C [facility] Comment on above: Order Comment: Speci men Type: BLOOD SPECIMENOrdering Facility: [facility] Address: [address] [place] [address] Result Comment: PEth 16:0/18:1 (POPEth)Less than 10 ng/mL............Not detectedLess than 20 ng/mL............Abstinence or light bvvlznsfklbmtgdacf33 - 200 ng/mL................Moderate alcohol consumptionGreater than 200 ng/mL........Heavy alcohol consumption or chronicalcohol use(Reference: Alonso Landaverde and Mathew Ha 2018 J. Forensic Sci) Performed By: #### P ETH ####[facility] LABORATORIESCLIA [id number] [place] [address] PETH INTERPRETATION See Comment Normal [facility] Comment on above: Order Comment: Speci men Type: BLOOD SPECIMENOrdering Facility: [facility] Address: [address] [place] [address] Result Comment: Phos phatidylethanol (PEth) is a [...] was developed and its performance characteristicsdetermined by [facility]. It has not been cleared orapproved by the U.S. Food and Drug Administration. This test wasperformed in a CLIA-certified laboratory and is intended forclinical purposes.Performed By: [facility] [place], [place] [address]Mivnfajkul Director: Lizandro Ordonez MD, PhDCLIA Number: [id number] Performed By: #### P ETH ####[facility]PITALIA [id number] [place] [address] PT panel Coag (PPP)on 2024 INR Coag (PPP) [Relative time] 1.9 {INR} High 0.9-1.3 [facility] Comment on above: Order Comment: Speci men Type: BLOOD SPECIMENOrdering Facility: [facility] Address: [address] [place] [address] Result Comment: Sarah min K Antagonist (VKA) Therapeutic Range: INR 2 to 3 (Target INR of 2.5)Note: For patients treated with VKA drugs, such as warfarin, the [place] [employer] 2012 Guideline recommends [...] 3).Tammi GH, et al. Chest 2012, 141:7S-47SHector HIRSCH, et al. [facility] 2017, 70: 252-289 Performed By: #### 3 4528-0, 3255-7 ####[facility] LABCLIA [id number] [place] [address] [place] PT Coag (PPP) [Time] 19.9 s High 9.7-13.0 [facility] Comment on above: Order Comment: Speci men Type: BLOOD SPECIMENOrdering Facility: [facility] Address: [address] [place] [address] Performed By: #### 3 4528-0, 3255-7 ####[facility] LABCLIA [id number] [address] [place] Pathology biopsy report Marco Antonio (Tiss)on 11-13-2024 AP DISCLAIMER Normal [facility] Comment on above: Order Comment: Speci men Type: TISSUE SPECIMENOrdering Facility: [facility] Address: [address] [place] [address] Result Comment: Shellie pugh Developed Test (LDT) Disclaimer:Performance characteristics of immunohistochemical, immunofluorescent, and chromogenic in-situ hybridization tests have been determined by the performing laboratory within [facility] Pathology and Laboratory Medicine Department ([facility], [facility], [facility], [facility], [facility], [facility], or [facility]) in a manner consistent with CLIA requirements. [...] Performed By: #### 6 6121-5 ####[facility]ORATORYCLIA [id number] [place] [address] [place] [facility] [id number] [place] [address] [place] CASE REPORT Normal [facility] Comment on above: Order Comment: Speci men Type: TISSUE SPECIMENOrdering Facility: [facility] Address: [address] [place] [address] Result Comment: Surg ical Pathology Report Case: [id number] Provider: Thai Pineda MD Collected: 11/13/2024 09:40 AMOrdering Location: [place] [address] Received: 11/15/2024 03:18 PMPathologist: Axel Berger MDSpecimen: Esophagus, Biopsy, r/o esophageal candidiasis Performed By: #### 6 6121-5 ####[facility]ORATORYCLIA [id number] [address] LABCLIA [id number] [address] FINAL DIAGNOSIS Normal [facility] Comment on above: Order Comment: Speci men Type: TISSUE SPECIMENOrdering Facility: [facility] Address: [address] [place] [address] Result Comment: Esop hagus, biopsy:- Squamous mucosal candidiasis.JEL 11/16/2024 at 1034 EDT Performed By: #### 6 6121-5 ####[facility] LABORATORYCLIA [id number] [address] LABCLIA [id number] [address] FINAL PERFORMING LAB Normal [facility] Comment on above: Order Comment: Speci men Type: TISSUE SPECIMENOrdering Facility: [facility] Address: [address] [place] [address] Result Comment: Diag nostic interpretation performed at: [facility], [address] [place] [address] CLIA# [id number] Director: Rick Harris MD Performed By: #### 6 6121-5 ####[facility] LABORATORYCLIA [id number] [address] LABCLIA [id number] [place] [id number] [facility] GROSS DESCRIPTION Normal [facility] Comment on above: Order Comment: Speci men Type: TISSUE SPECIMENOrdering Facility: [facility] Address: [address] [place] [address] Result Comment: Jann iglesias, BiopsyReceived in formalin are multiple pieces of espitia, soft tissue aggregating to 0.9 x 0.2 x 0.2 cm. Totally submitted in one cassette.BC November 15, 2024 4:50 PMGross examination performed at [facility], [address] [place] [address] Performed By: #### 6 6121-5 ####[facility]ORATORYCLIA [id number] [address] LABCLIA [id number] [place] [address] [place] Phosphate SerPl-mCncon 11-13 Phosphate [Mass/Vol] 1.5 mg/dL Low 2.7-4.8 [facility] Comment on above: Order Comment: Speci men Type: BLOOD SPECIMENOrdering Facility: [facility] Address: [address] [place] [address] Performed By: #### 2 777-1, 3016-3 ####[facility] LABCLIA [id number] [place] [address] [place] RUBEOLA (MEASLES)IGGon 11-13 MEASLES IGG AB, QUAL Positive Normal Positive [facility] Comment on above: Order Comment: Speci men Type: BLOOD SPECIMENOrdering Facility: [facility] Address: [address] [place] [address] Result Comment: The result suggests recent or past exposure to Measles virus or Measles vaccination. The current test does not detect neutralizing antibodies. Positive result may also be seen due to presence of passively-transferred antibodies. Please correlate with patient's history. Performed By: #### 7 852-7, MEASLG, VZVG2, 1987- ####[facility] LABCLIA [id number] [place] [address] [place] Reagin and Treponema pallidu m IgG and IgM [Interp]on 11-13-2024 T. pallidum IgG+IgM IA Ql (S) Non-Reactive Normal Nonreactive [facility] Comment on above: Order Comment: Speci men Type: BLOOD SPECIMENOrdering Facility: [facility] Address: [address] [place] [address] Performed By: #### 7 3752-8, AHAVSHMUEL Manjarrez MUMPSG ####[facility] LABCLIA [id number] [place] [address] [place] Reagin+T pallidum IgG+IgM Se rPl-Impon 11-13-2024 Reagin and Treponema pallidum IgG and IgM [Interp] Cannot exclude recent Treponemal infection if specimen collected within 7-10 days after appearance of suspect lesions or 2-3 weeks after an exposure. Clinical correlation is required. Normal [facility] Comment on above: Order Comment: Speci men Type: BLOOD SPECIMENOrdering Facility: [facility] Address: [address] [place] [address] Performed By: #### 7 3752-8, AHAVGAVINO ManjarrezSER MUMPSG ####[facility] LABCLIA [id number] [place] [address] [place] STAPHYLOCOCCUS AUREUS AND MR SA SCREEN, PCR, NASALon 11-13-2024 S. aureus and MRSA panel ANANTH+probe (Nose) Not detected Normal Not Detected [facility] Comment on above: Order Comment: Speci men Type: SWABOrdering Facility: [facility] Address: [address] [place] [address] Performed By: #### S APCR ####[facility] LABIA [id number] [place] [address] [place] STRONGYLOIDES IGG BLon 11-13 STRONGYLOIDES IGG QUALITATIVE Negative Normal Negative [facility] Comment on above: Order Comment: Speci men Type: BLOOD SPECIMENOrdering Facility: [facility] Address: [address] [place] [address] Performed By: #### S TRSER ####[facility] LABCLIA [id number] [address] [place] Performed By: #### 7 3752-8, AHAVG, SHMUEL, ROXANEPSG ####[facility] LABCLIA [id number] [address] [place] T. gondii IgG Qn (S)on 11-13 TOXO IGG QUAL Negative Normal Negative [facility] Comment on above: Order Comment: Spechelder ramirez Type: BLOOD SPECIMENOrdering Facility: [facility] Address: [address] [place] [address] Result Comment: No s erological evidence of past exposure to Toxoplasma gondii. Cannot exclude recent infection if the specimen collected within 3-4 weeks after infection. Performed By: #### 8 039-0, 7885-7 ####[facility] [id number] [address] OF [facility] THERAPY NTon 11-13-2024 THERAPY NT Normal [facility] TOXICOLOGY PANEL BLDon 11-13 Acetaminophen [Mass/Vol] ug/mL Low 10-30 [facility] Comment on above: Order Comment: Ezekiel ramirez Type: BLOOD SPECIMENOrdering Facility: [facility] Address: [address] [place] [address] Result Comment: Toxi c > 150 ug/mL 4 hours post ingestionThe Viviana Figueroa nomogram can be used to estimate the probability of hepatotoxicity via the relationship of plasma acetaminophen concentration to the post ingestion interval. (Skylar. Pediatrics. 1975. 55:871 to 876 and Viviana et al. Arch Ceiling Insulation Blower Med. 1981. 141:380 to 385).Reference ranges and high/low indicator flags are provided as general guidelines only. The treating physician must determine appropriate target levels/dosing based on the specific clinical situation. Performed By: #### T OXP ####[facility] LABIA [id number] [address] [place] Ethanol [Mass/Vol] mg/dL Normal <11 [facility] Comment on above: Order Comment: Ezekiel ramirez Type: BLOOD SPECIMENOrdering Facility: [facility] Address: [address] [place] [address] Performed By: #### T OXP ####[facility] LABCLIA [id number] [place] [address] [place] Salicylates [Mass/Vol] mg/dL Low 3.0-30.0 [facility] Comment on above: Order Comment: Ezekiel ramirez Type: BLOOD SPECIMENOrdering Facility: [facility] Address: [address] [place] [address] Result Comment: The therapeutic range varies and has been reported to be 3.0 to 10.0 mg/dL for anti pyretic/analgesic conditions and 15.0 to 30.0 mg/dL for anti inflammatory/rheumatic fever conditions. Ranges published by the instrument afternoon babysitter.Reference ranges and high/low indicator flags are provided as general guidelines only. The treating physician must determine appropriate target levels/dosing based on the specific clinical situation. Performed By: #### T OXP ####[facility] LABCLIA [id number] [place] [address] [place] TSH SerPl-aCncon 11-13-2024 TSH Qn 0.633 m[IU]/L Normal 0.270-4.200 [facility] Comment on above: Order Comment: Ezekiel ramirez Type: BLOOD SPECIMENOrdering Facility: [facility] Address: [address] [place] [address] Performed By: #### 2 777-1, 3016-3 ####[facility] LABCLIA [id number] [place] [id number] [place] Upper GI endoscopyon 025 Upper GI endoscopy Normal [facility] VARICELLA ZOSTER IGGon 11-13 VARICELLA ZOSTER IGG, QUAL Positive Normal Positive [facility] Comment on above: Order Comment: Ezekiel ramirez Type: BLOOD SPECIMENOrdering Facility: [facility] Address: [address] [place] [address] Result Comment: The result suggests recent or past exposure to Varicella-Zoster virus or chickenpox vaccination or zoster vaccination. Positive result may also be seen due to presence of passively-transferred antibodies. Please correlate with patient's history. Performed By: #### 7 852-7, MEASLG, VZVG2, 1987- ####[facility] LABCLIA [id number] [place] [address] [place] Vit A SerPl-mCncon Retinol [Mass/Vol] 0.03 mg/L Low 0.30-1.20 [facility] Comment on above: Order Comment: Ezekiel ramirez Type: BLOOD SPECIMENOrdering Facility: [facility] Address: [address] [place] [address] Result Comment: This test was developed, and its performance characteristics determined by the [facility] Department of Pathology and Laboratory Medicine. It has not been cleared or approved by the FDA. The [facility] Department of Pathology and Laboratory Medicine is regulated under CLIA as qualified to perform high-complexity testing. This test is used for clinical purposes. It should not be regarded as investigational or for research. Performed By: #### 2 923-1, 1823-4 ####[facility] LABCLIA [id number] [address] [place] Zinc SerPl-mCncon 11-13-2024 Zinc [Mass/Vol] 60 ug/dL Normal 60-120 [facility] Comment on above: Order Comment: Ezekiel ramirez Type: BLOOD SPECIMENOrdering Facility: [facility] Address: [address] [place] [address] Result Comment: This test was developed, and its performance characteristics determined by the [facility] Department of Pathology and Laboratory Medicine. It has not been cleared or approved by the FDA. The [facility] Department of Pathology and Laboratory Medicine is regulated under CLIA as qualified to perform high-complexity testing. This test is used for clinical purposes. It should not be regarded as investigational or for research. Performed By: #### 5 763-8 ####[facility] [id number] [place] [address] [place] AFP SerPl-mCncon 11-12-2024 AFP [Mass/Vol] 2.25 ng/mL Normal <9.00 [facility] Comment on above: Order Comment: Speci men Type: BLOOD SPECIMENOrdering Facility: [facility] Address: [address] [place] [address] Result Comment: The Alpha-Fetoprotein test was performed using the [employer] DxI immunoenzymatic assay. Results obtained with different assay methods or kits cannot be used interchangeably. Performed By: #### 1 834-1 ####[facility] [id number] [place] [address] [place] ARTERIAL BLOOD GASESon 11-12 Base deficit (BldA) [Moles/Vol] -8 mmol/L Low -2-0 [facility] Comment on above: Order Comment: Speci men Type: ARTERIAL BLOOD SPECIMENOrdering Facility: [facility] Address: [address] [place] [address] Performed By: #### A LLBG ####[facility] [id number] [place] [address] [place] Body temperature 98.6 [degF] Normal [facility] Comment on above: Order Comment: Speci men Type: ARTERIAL BLOOD SPECIMENOrdering Facility: [facility] Address: [address] [place] [address] Performed By: #### A LLBG ####[facility] [id number] [place] [address] [place] Calcium.ionized (Bld) [Mass/Vol] 1.20 mmol/L Normal 1.08-1.30 [facility] Comment on above: Order Comment: Speci men Type: ARTERIAL BLOOD SPECIMENOrdering Facility: [facility] Address: [address] [place] [address] Performed By: #### A LLBG ####[facility] LABCLIA [id number] [place] [address] [place] Calcium.ionized adjusted to pH 7.4 (BldA) [Moles/Vol] 1.24 mmol/L Normal 1.08-1.30 [facility] Comment on above: Order Comment: Speci men Type: ARTERIAL BLOOD SPECIMENOrdering Facility: [facility] Address: [address] [place] [address] Performed By: #### A LLBG ####[facility] LABIA [id number] [place] [address] [place] Carboxyhemoglobin (BldA) [Mass fraction] 2.0 % Normal 0.0-2.0 [facility] Comment on above: Order Comment: Speci men Type: ARTERIAL BLOOD SPECIMENOrdering Facility: [facility] Address: [address] [place] [address] Result Comment: Carb oxyhemoglobin Reference Range for Smokers: 2.0-8.0% Performed By: #### A LLBG ####[facility] LABIA [id number] [place] [address] [place] CO2 (Bld) [Partial pressure] 21 mm Hg Low 36-46 [facility] Comment on above: Order Comment: Speci men Type: ARTERIAL BLOOD SPECIMENOrdering Facility: [facility] Address: [address] [place] [address] Performed By: #### A LLBG ####[facility] LABIA [id number] [place] [address] [place] Glucose [Mass/Vol] 276 mg/dL High 60-105 [facility] Comment on above: Order Comment: Speci men Type: ARTERIAL BLOOD SPECIMENOrdering Facility: [facility] Address: [address] [place] [address] Performed By: #### A LLBG ####[facility] LABIA [id number] [place] [address] [place] HCO3 (Bld) [Moles/Vol] 15 mmol/L Low 22-26 [facility] Comment on above: Order Comment: Speci men Type: ARTERIAL BLOOD SPECIMENOrdering Facility: [facility] Address: [address] [place] [address] Performed By: #### A LLBG ####[facility] LABCLIA [id number] [place] [address] [place] Hematocrit (Bld) [Volume fraction] 22.4 % Low 39.0-51.0 [facility] Comment on above: Order Comment: Speci men Type: ARTERIAL BLOOD SPECIMENOrdering Facility: [facility] Address: [address] [place] [address] Performed By: #### A LLBG ####[facility] LABIA [id number] [place] [address] [place] Hemoglobin (Bld) [Mass/Vol] 7.2 g/dL Low 13.0-17.0 [facility] Comment on above: Order Comment: Speci men Type: ARTERIAL BLOOD SPECIMENOrdering Facility: [facility] Address: [address] [place] [address] Performed By: #### A LLBG ####[facility] LABCLIA [id number] [place] [address] [place] Lactate [Moles/Vol] 2.9 mmol/L High 0.5-2.2 [facility] Comment on above: Order Comment: Speci men Type: ARTERIAL BLOOD SPECIMENOrdering Facility: [facility] Address: [address] [place] [address] Performed By: #### A LLBG ####[facility] LABCLIA [id number] [place] [address] [place] Methemoglobin (Bld) [Mass fraction] 1.0 % Normal 0.0-1.5 [facility] Comment on above: Order Comment: Speci men Type: ARTERIAL BLOOD SPECIMENOrdering Facility: [facility] Address: [address] [place] [address] Performed By: #### A LLBG ####[facility] LABCLIA [id number] [place] [address] [place] O2 THERAPY RA=Room Air Normal [facility] Comment on above: Order Comment: Speci men Type: ARTERIAL BLOOD SPECIMENOrdering Facility: [facility] Address: [address] [place] [address] Performed By: #### A LLBG ####[facility] LABCLIA [id number] [place] [address] [place] Oxygen (Bld) [Partial pressure] 94 mm Hg Normal 85-95 [facility] Comment on above: Order Comment: Speci men Type: ARTERIAL BLOOD SPECIMENOrdering Facility: [facility] Address: [address] [place] [address] Performed By: #### A LLBG ####[facility] LABCLIA [id number] [place] [address] [place] Oxyhemoglobin (BldA) [Mass fraction] 96 % Normal 95-98 [facility] Comment on above: Order Comment: Speci men Type: ARTERIAL BLOOD SPECIMENOrdering Facility: [facility] Address: [address] [place] [address] Performed By: #### A LLBG ####[facility] LABCLIA [id number] [place] [id number] [place] pH (Bld) 7.46 [pH] High 7.35-7.45 [facility] Comment on above: Order Comment: Speci men Type: ARTERIAL BLOOD SPECIMENOrdering Facility: [facility] Address: [address] [place] [address] Performed By: #### A LLBG ####[facility] LABCLIA [id number] [place] [id number] [place] PO2 / FIO2 RATIO 448 mmHg Normal >300 [facility] Comment on above: Order Comment: Speci men Type: ARTERIAL BLOOD SPECIMENOrdering Facility: [facility] Address: [address] [place] [address] Performed By: #### A LLBG ####[facility] LABCLIA [id number] [address] [address] [place] Potassium [Moles/Vol] 3.9 mmol/L Normal 3.5-5.0 [facility] Comment on above: Order Comment: Speci men Type: ARTERIAL BLOOD SPECIMENOrdering Facility: [facility] Address: [address] [place] [address] Performed By: #### A LLBG ####[facility] LABCLIA [id number] [place] [address] [place] Sodium [Moles/Vol] 124 mmol/L Low 136-144 [facility] Comment on above: Order Comment: Speci men Type: ARTERIAL BLOOD SPECIMENOrdering Facility: [facility] Address: [address] [place] [address] Performed By: #### A LLBG ####[facility] LABCLIA [id number] [place] [id number] [place] Bacteria Ur Culton Bacteria identified Cx Nom (U) Normal [facility] Comment on above: Performed By: #### 6 30-4, 47450-7 ####[facility] LABCLIA [id number] [address] [address] [place] Basic metabolic 2000 panelon 11-12-2024 Anion gap [Moles/Vol] 11 mmol/L Normal 8-15 [facility] Comment on above: Order Comment: Speci men Type: BLOOD SPECIMENOrdering Facility: [facility] Address: [address] [place] [address] Performed By: #### 2 4321-2, 13593-8, 2777-1 ####[facility] LABCLIA [id number] [facility] [address] [place] [address] [place] Calcium [Mass/Vol] 9.2 mg/dL Normal 8.5-10.2 [facility] Comment on above: Order Comment: Speci men Type: BLOOD SPECIMENOrdering Facility: [facility] Address: [address] [place] [address] Performed By: #### 2 4321-2, 29960-7, 277-1 ####[facility] LABCLIA [id number] [facility] [address] [address] [place] Chloride [Moles/Vol] 99 mmol/L Normal 98-107 [facility] Comment on above: Order Comment: Speci men Type: BLOOD SPECIMENOrdering Facility: [facility] Address: [address] [place] [address] Performed By: #### 2 4321-2, 55199-9, 277- ####[facility] LABCLIA [id number] [place] [address] [place] CO2 [Moles/Vol] 14 mmol/L Low 22-30 [facility] Comment on above: Order Comment: Speci men Type: BLOOD SPECIMENOrdering Facility: [facility] Address: [address] [place] [address] Performed By: #### 2 4321-2, 67270-1, 2776-1 ####[facility] LABCLIA [id number] [address] [address] [place] Creatinine [Mass/Vol] 1.22 mg/dL Normal 0.73-1.22 [facility] Comment on above: Order Comment: Speci men Type: BLOOD SPECIMENOrdering Facility: [facility] Address: [address] [place], [place] [address] Performed By: #### 2 4321-2, 07197-4, 2777-1 ####[facility] LABCLIA [id number] [address] [address] [place] Creatinine and Glomerular filtration rate.predicted panel (S/P/Bld) 69 mL/min/1.73m??? Normal >=60 [facility] Comment on above: Order Comment: Ezekiel ramirez Type: BLOOD SPECIMENOrdering Facility: [facility] Address: [address] [place] [address] Result Comment: Patric mated Glomerular Filtration Rate [...] actual GFR. Performed By: #### 2 4321-2, 46192-5, 2777-1 ####[facility] LABCLIA [id number] [place] [address] [place] Glucose [Mass/Vol] 304 mg/dL High 74-99 [facility] Comment on above: Order Comment: Ezekiel ramirez Type: BLOOD SPECIMENOrdering Facility: [facility] Address: [address] [place] [address] Result Comment: The [place] [employer] (ADA) provides guidance for cutoff [...] Standards of Medical Care in Diabetes 2016, [place] [employer]. Diabetes Care. 2016.39(Suppl 1). Performed By: #### 2 4321-2, 98540-7, 2777-1 ####[facility] LABIA [id number] [address] [address] [place] Potassium [Moles/Vol] 4.3 mmol/L Normal 3.7-5.1 [facility] Comment on above: Order Comment: Speci men Type: BLOOD SPECIMENOrdering Facility: [facility] Address: [address] [place] [address] Performed By: #### 2 4321-2, 53812-4, 2777-1 ####[facility] LABCLIA [id number] [place] [address] [place] Sodium [Moles/Vol] 124 mmol/L Low 136-144 [facility] Comment on above: Order Comment: Speci men Type: BLOOD SPECIMENOrdering Facility: [facility] Address: [address] [place] [address] Performed By: #### 2 4321-2, 80757-2, 2777-1 ####[facility] LABCLIA [id number] [place] [address] [place] Urea nitrogen [Mass/Vol] 22 mg/dL Normal 9-24 [facility] Comment on above: Order Comment: Speci men Type: BLOOD SPECIMENOrdering Facility: [facility] Address: [address] [place] [address] Performed By: #### 2 4321-2, 34705-7, 2777-1 ####[facility] LABIA [id number] [place] [address] [place] CASE MGT INIT ASSESon 2024 CASE MGT INIT ASSES Normal [facility] CBC panel Auto (Bld)on 11-12 Erythrocyte distribution width (RBC) [Ratio] 16.9 % High 11.5-15.0 [facility] Comment on above: Order Comment: Speci men Type: BLOOD SPECIMENOrdering Facility: [facility] Address: [address] [place] [address] Performed By: #### 5 8410-2 ####[facility] LABIA [id number] [place] [address] [place] Hematocrit (Bld) [Volume fraction] 21.7 % Low 39.0-51.0 [facility] Comment on above: Order Comment: Speci men Type: BLOOD SPECIMENOrdering Facility: [facility] Address: [address] [place] [address] Performed By: #### 5 8410-2 ####[facility] LABIA [id number] [place] [address] [place] Hemoglobin (Bld) [Mass/Vol] 7.5 g/dL Low 13.0-17.0 [facility] Comment on above: Order Comment: Speci men Type: BLOOD SPECIMENOrdering Facility: [facility] Address: [address] [place] [address] Performed By: #### 5 8410-2 ####[facility] LABIA [id number] [place] [address] [place] MCH (RBC) [Entitic mass] 31.5 pg Normal 26.0-34.0 [facility] Comment on above: Order Comment: Speci men Type: BLOOD SPECIMENOrdering Facility: [facility] Address: [address] [place] [address] Performed By: #### 5 8410-2 ####[facility] LABIA [id number] [place] [address] [place] MCHC (RBC) [Mass/Vol] 34.6 g/dL Normal 30.5-36.0 [facility] Comment on above: Order Comment: Speci men Type: BLOOD SPECIMENOrdering Facility: [facility] Address: [address] [place] [address] Performed By: #### 5 8410-2 ####[facility] LABIA [id number] [place] [address] [place] MCV (RBC) [Entitic vol] 91.2 fL Normal 80.0-100.0 [facility] Comment on above: Order Comment: Speci men Type: BLOOD SPECIMENOrdering Facility: [facility] Address: [address] [place] [address] Performed By: #### 5 8410-2 ####[facility] LABIA [id number] [place] [address] [place] Nucleated RBC (Bld) [#/Vol] 10*3/uL Normal <0.01 [facility] Comment on above: Order Comment: Speci men Type: BLOOD SPECIMENOrdering Facility: [facility] Address: [address] [place] [address] Performed By: #### 5 8410-2 ####[facility] [id number] [place] [address] [place] Platelet mean volume (Bld) [Entitic vol] 10.8 fL Normal 9.0-12.7 [facility] Comment on above: Order Comment: Speci men Type: BLOOD SPECIMENOrdering Facility: [facility] Address: [address] [place] [address] Performed By: #### 5 8410-2 ####[facility] [id number] [place] [address] [place] Platelets (Bld) [#/Vol] 31 10*3/uL Low 150-400 C [facility] Comment on above: Order Comment: Speci men Type: BLOOD SPECIMENOrdering Facility: [facility] Address: [address] [place] [address] Result Comment: Resu lts checked and verified.No clot detected. Performed By: #### 5 8410-2 ####[facility] [id number] [place] [address] [place] RBC (Bld) [#/Vol] 2.38 10*6/uL Low 4.20-6.00 [facility] Comment on above: Order Comment: Speci men Type: BLOOD SPECIMENOrdering Facility: [facility] Address: [address] [place] [address] Performed By: #### 5 8410-2 ####[facility] LABCLIA [id number] [place] [address] [place] WBC (Bld) [#/Vol] 6.35 10*3/uL Normal 3.70-11.00 [facility] Comment on above: Order Comment: Speci men Type: BLOOD SPECIMENOrdering Facility: [facility] Address: [address] [place] [address] Performed By: #### 5 8410-2 ####[facility] LABIA [id number] [place] [address] [place] Erythrocyte distribution width (RBC) [Ratio] 17.3 % High 11.5-15.0 [facility] Comment on above: Order Comment: Speci men Type: BLOOD SPECIMENOrdering Facility: [facility] Address: [address] [place] [address] Performed By: #### 5 8410-2 ####[facility] LABIA [id number] [place] [address] [place] Hematocrit (Bld) [Volume fraction] 22.9 % Low 39.0-51.0 [facility] Comment on above: Order Comment: Speci men Type: BLOOD SPECIMENOrdering Facility: [facility] Address: [address] [place] [address] Performed By: #### 5 8410-2 ####[facility] LABCLIA [id number] [place] [id number] [place] Hemoglobin (Bld) [Mass/Vol] 7.9 g/dL Low 13.0-17.0 [facility] Comment on above: Order Comment: Speci men Type: BLOOD SPECIMENOrdering Facility: [facility] Address: [address] [place] [address] Performed By: #### 5 8410-2 ####[facility] LABCLIA [id number] [place] [address] [place] MCH (RBC) [Entitic mass] 31.5 pg Normal 26.0-34.0 [facility] Comment on above: Order Comment: Speci men Type: BLOOD SPECIMENOrdering Facility: [facility] Address: [address] [place] [address] Performed By: #### 5 8410-2 ####[facility] LABIA [id number] [place] [address] [place] MCHC (RBC) [Mass/Vol] 34.5 g/dL Normal 30.5-36.0 [facility] Comment on above: Order Comment: Speci men Type: BLOOD SPECIMENOrdering Facility: [facility] Address: [address] [place] [address] Performed By: #### 5 8410-2 ####[facility] LABIA [id number] [address] [place] MCV (RBC) [Entitic vol] 91.2 fL Normal 80.0-100.0 [facility] Comment on above: Order Comment: Speci men Type: BLOOD SPECIMENOrdering Facility: [facility] Address: [address] [place] [address] Performed By: #### 5 8410-2 ####[facility] LABIA [id number] [place] [address] [place] Nucleated RBC (Bld) [#/Vol] 10*3/uL Normal <0.01 [facility] Comment on above: Order Comment: Speci men Type: BLOOD SPECIMENOrdering Facility: [facility] Address: [address] [place] [address] Performed By: #### 5 8410-2 ####[facility] LABIA [id number] [place] [address] [place] Platelet mean volume (Bld) [Entitic vol] 11.6 fL Normal 9.0-12.7 [facility] Comment on above: Order Comment: Speci men Type: BLOOD SPECIMENOrdering Facility: [facility] Address: [address] [place] [address] Performed By: #### 5 8410-2 ####[facility] LABCLIA [id number] [address] [address] [place] Platelets (Bld) [#/Vol] 33 10*3/uL Low 150-400 [facility] Comment on above: Order Comment: Speci men Type: BLOOD SPECIMENOrdering Facility: [facility] Address: [address] [place] [address] Result Comment: Resu lts checked and verified.No clot detected. Performed By: #### 5 8410-2 ####[facility] LABIA [id number] [place] [address] [place] RBC (Bld) [#/Vol] 2.51 10*6/uL Low 4.20-6.00 [facility] Comment on above: Order Comment: Speci men Type: BLOOD SPECIMENOrdering Facility: [facility] Address: [address] [place] [address] Performed By: #### 5 8410-2 ####[facility] LABIA [id number] [place] [address] [place] WBC (Bld) [#/Vol] 7.27 10*3/uL Normal 3.70-11.00 [facility] Comment on above: Order Comment: Speci men Type: BLOOD SPECIMENOrdering Facility: [facility] Address: [address] [place] [address] Performed By: #### 5 8410-2 ####[facility] LABIA [id number] [address] [address] [place] CITRATED PLATELET COUNTon CITRATED PLATELET COUNT (WAM) 33 k/uL Low 150-400 [facility] Comment on above: Order Comment: Speci men Type: BLOOD SPECIMENOrdering Facility: [facility] Address: [address] [place] [address] Result Comment: Plat elet count confirmed by manual review of peripheral blood smear. No clot detected. Performed By: #### C ITPLT ####[facility] LABCLIA [id number] [place] [address] [place] CNCNPATEDon 11-12-2024 CNCNPATED Normal [facility] CNPNon 11-12-2024 CNPN Normal [facility] CONFIRM BLOOD TYPEon 025 ABO O Normal [facility] Comment on above: Order Comment: Speci men Type: BLOOD SPECIMENOrdering Facility: [facility] Address: [address] [place] [address] Performed By: #### C ONABO ####[facility] BLOOD BANKCLIA [id number] [place] [address] [place] Rh Nom (Bld) Positive Normal [facility] Comment on above: Order Comment: Speci men Type: BLOOD SPECIMENOrdering Facility: [facility] Address: [address] [place] [address] Performed By: #### C ONABO ####[facility] BLOOD BANKCLIA [id number] [place] [address] [place] CONSULTon 11-12-2024 CONSULT [...] IVCONon 11-13-19 CT CHEST WO IVCON Normal [facility] D dimer FEU PPP-mCncon 11-12 Fibrin D-dimer FEU (PPP) [Mass/Vol] 3850 ng/mL FEU High <500 [facility] Comment on above: Order Comment: Speci men Type: BLOOD SPECIMENOrdering Facility: [facility] Address: [address] [place] [address] Performed By: #### 4 8065-7 ####[facility] LABCLIA [id number] [address] [place] [address] [place] ECHO WITH AGITATED SALINE CO NTRASTon 11-12-2024 ECHO WITH AGITATED SALINE CONTRAST Normal [facility] Fibrin D-dimer FEU (PPP) [Ma ss/Vol]on 11-12-2024 D DIMER AGE-RELATED CUTOFF 580 ng/mL FEU Normal [facility] Comment on above: Order Comment: Speci men Type: BLOOD SPECIMENOrdering Facility: [facility] Address: [address] [place] [address] Performed By: #### 4 8065-7 ####[facility] LABCLIA [id number] [place] [address] [place] Hepatic function 2000 panelo n 11-12-2024 Albumin [Mass/Vol] 3.0 g/dL Low 3.9-4.9 [facility] Comment on above: Order Comment: Speci men Type: BLOOD SPECIMENOrdering Facility: [facility] Address: [address] [place] [address] Performed By: #### 2 4321-2, 63141-5, 2777-1 ####[facility] LABIA [id number] [address] [place] ALP [Catalytic activity/Vol] 252 U/L High 38-113 [facility] Comment on above: Order Comment: Speci men Type: BLOOD SPECIMENOrdering Facility: [facility] Address: [address] [place] [address] Performed By: #### 2 4321-2, 04372-9, 2777-1 ####[facility] LABIA [id number] [place] [id number] [place] ALT [Catalytic activity/Vol] 24 U/L Normal 10-54 [facility] Comment on above: Order Comment: Speci men Type: BLOOD SPECIMENOrdering Facility: [facility] Address: [address] [place], [place] [address] Performed By: #### 2 4321-2, 31315-7, 277-1 ####[facility] LABIA [id number] [address] [address] [place] AST [Catalytic activity/Vol] 41 U/L High 14-40 [facility] Comment on above: Order Comment: Speci men Type: BLOOD SPECIMENOrdering Facility: [facility] Address: [address] [place] [address] Performed By: #### 2 4321-2, 19497-2, 2776- ####[facility] LABIA [id number] [place] [address] [place] Bilirubin [Mass/Vol] 1.8 mg/dL High 0.2-1.3 [facility] Comment on above: Order Comment: Speci men Type: BLOOD SPECIMENOrdering Facility: [facility] Address: [address] [place] [address] Performed By: #### 2 4321-2, 41778-3, 2776- ####[facility] LABIA [id number] [place] [address] [place] Bilirubin.conjugated [Mass/Vol] 0.9 mg/dL High <0.3 [facility] Comment on above: Order Comment: Speci men Type: BLOOD SPECIMENOrdering Facility: [facility] Address: [address] [place] [address] Result Comment: Resu lts may be falsely decreased due to interference from hemolysis. Suggest reorder as clinically indicated. Performed By: #### 2 4321-2, 54480-9, 277-1 ####[facility] [id number] [place] [id number] [place] Protein [Mass/Vol] 5.5 g/dL Low 6.3-8.0 [facility] Comment on above: Order Comment: Speci men Type: BLOOD SPECIMENOrdering Facility: [facility] Address: [address] [place], [place] [address] Performed By: #### 2 4321-2, 40032-9, 2777-1 ####[facility] [id number] [place] [id number] [place] MEDICAL EMERon 11-12-2024 [...] Coag (PPP) [Time] 62.6 s High 23.0-32.4 [facility] Comment on above: Order Comment: Speci men Type: BLOOD SPECIMENOrdering Facility: [facility] Address: [address] [place] [address] Performed By: #### P TTAC ####[facility] [id number] [place] [id number] [place] Phosphate SerPl-mCncon 11-12 Phosphate [Mass/Vol] 2.3 mg/dL Low 2.7-4.8 [facility] Comment on above: Order Comment: Speci men Type: BLOOD SPECIMENOrdering Facility: [facility] Address: [address] [place] [address] Performed By: #### 2 4321-2, 93615-9, 2777-1 ####[facility] [id number] [place] [id number] [place] SOCIAL WORKon 11-12-2024 [...] Comment: Speci men Type: BLOOD SPECIMENOrdering Facility: [facility] Address: [address] [place] [address] Performed By: #### T EGPNP ####[facility] [id number] [address] [place] Clot Lysis 30 Min post maximum clot amplitude TEG (Bld) [Length fraction] 0.0 % Normal 0.0-8.0 [facility] Comment on above: Order Comment: Speci men Type: BLOOD SPECIMENOrdering Facility: [facility] Address: [address] [place] [address] Performed By: #### T EGPNP ####[facility] [id number] [place] [address] [place] Clotting time TEG (Bld) 5.0 minutes Normal 4.0-10.0 [facility] Comment on above: Order Comment: Speci men Type: BLOOD SPECIMENOrdering Facility: [facility] Address: [address] [place] [address] Performed By: #### T EGPNP ####[facility] [id number] [place] [address] [place] Coagulation index TEG Qn (Bld) -8.4 Low -4.6-3.2 [facility] Comment on above: Order Comment: Speci men Type: BLOOD SPECIMENOrdering Facility: [facility] Address: [address] [place] [address] Result Comment: This test was developed, and its performance characteristics determined by the [facility] Department of Pathology and Laboratory Medicine. It has not been cleared or approved by the FDA. The [facility] Department of Pathology and Laboratory Medicine is regulated under CLIA as qualified to perform high-complexity testing. This test is used for clinical purposes. It should not be regarded as investigational or for research. Performed By: #### T EGPNP ####[facility] [id number] [place] [id number] [place] Maximum clot firmness TEG (Bld) [Length] 28.5 mm Low 51.0-75.0 [facility] Comment on above: Order Comment: Speci men Type: BLOOD SPECIMENOrdering Facility: [facility] Address: [address] [place] [address] Performed By: #### T EGPNP ####[facility] [id number] [place] [address] [place] Thromboelastography after addtion of heparinase panel (Bld) Normal [facility] Comment on above: Order Comment: Speci men Type: BLOOD SPECIMENOrdering Facility: [facility] Address: [address] [place] [address] Result Comment: A th romboelastograph (TEG) study [...] timely manner. Performed By: #### T EGPNP ####[facility] [id number] [address] [place] TOXICOLOGY SCREEN, ROUTINE U RINEon 11-12-2024 Amphetamines Confirm (U) [Mass/Vol] Negative Normal Negative [facility] Comment on above: Order Comment: Speci men Type: URINE SPECIMENOrdering Facility: [facility] Address: [address] [place] [address] Result Comment: Cuto ff threshold at 1000 ng/mL. Performed By: #### U TOX2 ####[facility] [id number] [place] [address] [place] BARBITURATES, URINE Negative Normal Negative [facility] Comment on above: Order Comment: Speci men Type: URINE SPECIMENOrdering Facility: [facility] Address: [address] [place] [address] Result Comment: Cuto ff threshold at 200 ng/mL. Performed By: #### U TOX2 ####[facility] [id number] [place] [address] [place] BENZODIAZEPINES, UR Negative Normal Negative [facility] Comment on above: Order Comment: Speci men Type: URINE SPECIMENOrdering Facility: [facility] Address: [address] [place] [address] Result Comment: Cuto ff threshold at 200 ng/mL. Performed By: #### U TOX2 ####[facility] [id number] [place] [address] [place] Cannabinoids Screen Ql (U) Negative Normal Negative [facility] Comment on above: Order Comment: Speci men Type: URINE SPECIMENOrdering Facility: [facility] Address: [address] [place] [address] Result Comment: Cuto ff threshold at 50 ng/mL. Performed By: #### U TOX2 ####[facility] [id number] [place] [address] [place] Cocaine Ql (U) Negative Normal Negative [facility] Comment on above: Order Comment: Speci men Type: URINE SPECIMENOrdering Facility: [facility] Address: [address] [place] [address] Result Comment: Cuto ff threshold at 300 ng/mL. Performed By: #### U TOX2 ####[facility] [id number] [place] [address] [place] Ethanol (U) [Mass/Vol] <11 Normal <11 Cl [facility] Comment on above: Order Comment: Speci men Type: URINE SPECIMENOrdering Facility: [facility] Address: [address] [place] [address] Performed By: #### U TOX2 ####[facility] [id number] [place] [address] [place] Opiates Screen Ql (U) Negative Normal Negative [facility] Comment on above: Order Comment: Speci men Type: URINE SPECIMENOrdering Facility: [facility] Address: [address] [place] [address] Result Comment: Cuto ff threshold at 300 ng/mL. Performed By: #### U TOX2 ####[facility] [id number] [place] [address] [place] oxyCODONE cutoff Screen (U) [Mass/Vol] Positive Abnormal Negative [facility] Comment on above: Order Comment: Speci men Type: URINE SPECIMENOrdering Facility: [facility] Address: [address] [place] [address] Result Comment: Cuto ff threshold at 100 ng/mL. Performed By: #### U TOX2 ####[facility] [id number] [place] [address] [place] Phencyclidine Ql (U) Negative Normal Negative [facility] Comment on above: Order Comment: Speci men Type: URINE SPECIMENOrdering Facility: [facility] Address: [address] [place] [address] Result Comment: Cuto ff threshold at 25 ng/mL. Performed By: #### U TOX2 ####[facility] [id number] [place] [address] [place] TYPE + SCREENon 11-12-2024 ABO O Normal [facility] Comment on above: Order Comment: Speci men Type: BLOOD SPECIMENOrdering Facility: [facility] Address: [address] [place] [address] Performed By: #### T SCR ####[facility]CL[facility] [id number] [place] [address] [place] Rh Nom (Bld) Positive Normal [facility] Comment on above: Order Comment: Speci men Type: BLOOD SPECIMENOrdering Facility: [facility] Address: [address] [place] [address] Performed By: #### T SCR ####[facility]ANKCL[facility] [id number] [address] [place] TYPE AND SCREEN EXPIRATION 11/15/2024 23:59 Normal [facility] Comment on above: Order Comment: Speci men Type: BLOOD SPECIMENOrdering Facility: [facility] Address: [address] [place] [address] Performed By: #### T SCR ####[facility] BLOOD BANKCLIA [id number] [place] [address] [place] Urinalysis complete panel (U )on 11-12-2024 BACTERIA UL 1553.2 uL High Negative [facility] Comment on above: Order Comment: Speci men Type: URINE SPECIMENOrdering Facility: [facility] Address: [address] [place] [address] Performed By: #### 6 30-4, 50536-7 ####[facility] [id number] [address] [place] Bilirubin Ql (U) 1+ Abnormal Negative [facility] Comment on above: Order Comment: Speci men Type: URINE SPECIMENOrdering Facility: [facility] Address: [address] [place] [address] Result Comment: Sugg est correlation with clinical findings and serum bilirubin if clinically indicated. Performed By: #### 6 30-4, 94641-7 ####[facility] [id number] [address] [place] [address] [place] Clarity (Unsp spec) Cloudy Abnormal Clear [facility] Comment on above: Order Comment: Speci men Type: URINE SPECIMENOrdering Facility: [facility] Address: [address] [place] [address] Performed By: #### 6 30-4, 11878-2 ####[facility] [id number] [address] [place] [address] [place] Color (U) [place] Abnormal Yellow [facility] Comment on above: Order Comment: Speci men Type: URINE SPECIMENOrdering Facility: [facility] Address: [address] [place] [address] Performed By: #### 6 30-4, 86530-4 ####[facility] [id number] [address], [place] [address] [place] Epithelial cells LM.HPF (Urine sed) [#/Area] None Seen Normal [facility] Comment on above: Order Comment: Speci men Type: URINE SPECIMENOrdering Facility: [facility] Address: [address] [place] [address] Performed By: #### 6 30-4, 47743-5 ####[facility] [id number] [address], [facility] [place] Glucose Test strip (U) [Mass/Vol] Negative Normal Negative [facility] Comment on above: Order Comment: Speci men Type: URINE SPECIMENOrdering Facility: [facility] Address: [address] [place] [address] Performed By: #### 6 30-4, 31141-9 ####[facility] [id number] [address], [facility]95 [place] Hemoglobin Ql (U) 3+ Abnormal Negative [facility] Comment on above: Order Comment: Speci men Type: URINE SPECIMENOrdering Facility: [facility] Address: [address] [place], [place] [address] Performed By: #### 6 30-, 12432-3 ####[facility] [id number] [address] [place] [address] [place] Hyaline casts (Urine sed) [#/Area] 0 /[LPF] Normal 0 /LPF [facility] Comment on above: Order Comment: Speci men Type: URINE SPECIMENOrdering Facility: [facility] Address: [address] [place] [address] Performed By: #### 6 30-4, 52714-1 ####[facility] [id number] [address], [facility]95 [place] Ketones Ql (U) Negative Normal Negative [facility] Comment on above: Order Comment: Speci men Type: URINE SPECIMENOrdering Facility: [facility] Address: [address] [place] [address] Performed By: #### 6 30, 99342-8 ####[facility] [id number] [address], [facility]95 [place] Leukocyte esterase Test strip Ql (U) 2+ Abnormal Negative [facility] Comment on above: Order Comment: Speci men Type: URINE SPECIMENOrdering Facility: [facility] Address: [address] [place] [address] Performed By: #### 6 30-4, 60300-0 ####[facility] [id number] [address] [place] [address] [place] Nitrite Ql (U) Negative Normal Negative [facility] Comment on above: Order Comment: Speci men Type: URINE SPECIMENOrdering Facility: [facility] Address: [address] [place] [address] Performed By: #### 6 30-4, 12457-1 ####[facility] [id number] [address] [place] [address] [place] pH (U) 6.0 [pH] Normal <8.5 [facility] Comment on above: Order Comment: Speci men Type: URINE SPECIMENOrdering Facility: [facility] Address: [address] [place] [address] Performed By: #### 6 30-4, 84719-1 ####[facility] [id number] [place] [address] [place] Protein (U) [Mass/Vol] 3+ Abnormal Negative Cl [facility] Comment on above: Order Comment: Speci men Type: URINE SPECIMENOrdering Facility: [facility] Address: [address] [place] [address] Performed By: #### 6 30-4, 34054-5 ####[facility] [id number] [place] [address] [place] RBC LM.HPF (Urine sed) [#/Area] /[HPF] Abnormal 0-2 /HPF [facility] Comment on above: Order Comment: Speci men Type: URINE SPECIMENOrdering Facility: [facility] Address: [address] [place] [address] Performed By: #### 6 30-4, 82054-7 ####[facility] [id number] [place] [address] [place] Specific gravity (U) [Rel density] 1.019 Normal 1.005-1.030 [facility] Comment on above: Order Comment: Speci men Type: URINE SPECIMENOrdering Facility: [facility] Address: [address] [place] [address] Performed By: #### 6 30-4, 60114-9 ####[facility] [id number] [place] [address] [place] Urobilinogen Ql (U) 0.2 EU/dL Normal 0.2-1.0 EU/dL [facility] Comment on above: Order Comment: Speci men Type: URINE SPECIMENOrdering Facility: [facility] Address: [address] [place] [address] Performed By: #### 6 30-4, 94296-2 ####[facility] [id number] [place] [address] [place] WBC LM.HPF (Urine sed) [#/Area] /[HPF] Abnormal 0-5 /HPF [facility] Comment on above: Order Comment: Speci men Type: URINE SPECIMENOrdering Facility: [facility] Address: [address] [place] [address] Performed By: #### 6 30-4, 32170-5 ####[facility] [id number] [place] [address] [place] ALLIED HEALTHon 11-11-2024 ALLIED HEALTH Normal [facility] ALLIED HEALTH Normal [facility] ANTI PLT FACTOR 4 ABon 11-11 Heparin induced platelet IgG Marco Antonio (S) [Interp] Negative Normal Negative [facility] Comment on above: Order Comment: Speci men Type: BLOOD SPECIMENOrdering Facility: [facility] Address: [address] [place] [address] Result Comment: No a nti-platelet factor 4 IgG antibody is detected by ANDERS assay.Heparin-induced thrombocytopenia (HIT) is unlikely, but should be excluded based on clinical factors. Performed By: #### P LATF4 ####[facility] [id number] [place] [address] [place] Platelet factor 4 Qn (PPP) 0.184 OD Normal <0.400 [facility] Comment on above: Order Comment: Speci men Type: BLOOD SPECIMENOrdering Facility: [facility] Address: [address] [place] [address] Result Comment: Not calculated Performed By: #### P LATF4 ####[facility] [id number] [place] [address] [place] Albumin Fld-mCncon Albumin (Body fld) [Mass/Vol] <0.2 Normal See Comment [facility] Comment on above: Order Comment: Speci men Type: FLUID SPECIMENOrdering Facility: [facility] Address: [address] [place] [id number] Result Comment: Body Fluid Albumin may be [...] document C49A. Joe PA: Clinical Laboratory Standards [place]: 2007.2. Amy JACKSON. Serum to ascites albumin gradient. UpToDate. 2015. Accessed on November 15, 2015.This test was developed, and its performance characteristics determined by the [facility] Department of Pathology and Laboratory Medicine. It has not been cleared or approved by the FDA. The [facility] Department of Pathology and Laboratory Medicine is regulated under CLIA as qualified to perform high-complexity testing. This test is used for clinical purposes. It should not be regarded as investigational or for research. Performed By: #### 1 747-5, 1795-4, 95976-5, 2881-1 ####[facility] [id number] [place] [id number] [place] Fluid Nom (Body fld) Abdomen Normal [facility] Comment on above: Order Comment: Ezekiel ramirez Type: FLUID SPECIMENOrdering Facility: [facility] Address: [address] [place] [address] Performed By: #### 1 747-5, 1795-4, 49369-9, 2881-1 ####[facility] [id number] [place] [id number] [place] Amylase Fld-[facility] 5 Amylase (Body fld) [Catalytic activity/Vol] 14 U/L Normal See Comment [facility] Comment on above: Order Comment: Speci men Type: FLUID SPECIMENOrdering Facility: [facility] Address: [address] [place] [address] Result Comment: PLEU RAL FLUIDS:Amylase measurement in [...] document C49-A. PAULETTE Diaz: Clinical Laboratory Standards [place]; 2007.3. Kelby CONCEPCION, John RC, Star DJ. Use of cyst fluid CEA, CA19-9, and amylase for evaluation of pancreatic lesions. Clinical Biochemistry. 2009;42:5754-6535.This test was developed, and its performance characteristics determined by the [facility] Department of Pathology and Laboratory Medicine. It has not been cleared or approved by the FDA. The [facility] Department of Pathology and Laboratory Medicine is regulated under CLIA as qualified to perform high-complexity testing. This test is used for clinical purposes. It should not be regarded as investigational or for research. Performed By: #### 1 747-5, 1795-4, 16331-0, 2881-1 ####[facility] [id number] [address] [place] Antithrombin Ag actual/philly l IA (PPP) [Relative mass conc]on 11-11-2024 Antithrombin Ag IA Qn (PPP) 32 % Low 80-120 [facility] Comment on above: Order Comment: Speci men Type: BLOOD SPECIMENOrdering Facility: [facility] Address: [address] [place] [address] Performed By: #### L [id number], HCOAG, 6303-2, 37610-6, 11900-4 ####[facility] [id number] [place] [address] [place] BODY FLUID CELL COUNTon 11-02 Clarity (Unsp spec) Clear Normal Clear [facility] Comment on above: Order Comment: Speci men Type: FLUID SPECIMENOrdering Facility: [facility] Address: [address] [place] [address] Performed By: #### C CBF, [id number] ####[facility] [id number] [place] [address] [place] Color (Body fld) Colorless Normal Yellow [facility] Comment on above: Order Comment: Speci men Type: FLUID SPECIMENOrdering Facility: [facility] Address: [address] [place] [address] Performed By: #### C CBF, [id number] ####[facility] [id number] [place] [address] [place] RBC Manual cnt (Body fld) [#/Vol] 2000 /uL High <2000 [facility] Comment on above: Order Comment: Speci men Type: FLUID SPECIMENOrdering Facility: [facility] Address: [address] [place] [address] Performed By: #### C CBF, [id number] ####[facility] [id number] [place] [address] [place] Specimen source Nom (Body fld) Abdomen Normal [facility] Comment on above: Order Comment: Speci men Type: FLUID SPECIMENOrdering Facility: [facility] Address: [facility] [place] [address] Performed By: #### C CBF, [id number] ####[facility] [id number] [address] [place] [address] [place] WBC Manual cnt (Body fld) [#/Vol] 70 /uL Normal <1000 [facility] Comment on above: Order Comment: Speci men Type: FLUID SPECIMENOrdering Facility: [facility] Address: [address] [place] [address] Performed By: #### C CBF, [id number] ####[facility] [id number] [address] [place] [address] [place] Bacteria Bld Culton 11-12-19 25 Bacteria identified Cx Nom (Bld) CULTURE, BLOOD: No growth 5 days GRAM STAIN: This blood culture had less than the recommended 8 ml per bottle, which could decrease the sensitivity of the test. Normal [facility] Comment on above: Performed By: #### 6 00-7 ####[facility] [id number] [address] [place] [address] [place] Bacteria identified Cx Nom (Bld) CULTURE, BLOOD: No growth 5 days Normal [facility] Comment on above: Performed By: #### 6 00-7 ####[facility] [id number] [address] [id number] [address] [place] Bacteria Fld Culton 11-12-19 25 Bacteria identified Cx Nom (Body fld) CULTURE, BODY FLD: No growth GRAM STAIN: No organisms seen Many Polymorphonuclear leukocytes Gram stain performed on cytospun specimen. Gram stain from primary specimen Normal [facility] Comment on above: Performed By: #### 6 35-3, 611-4 ####[facility] [id number] [place] [id number] [place] Bacteria Spec Anaerobe Culto n 11-11-2024 Bacteria identified Anaer cx Nom (Unsp spec) Negative Normal [facility] Comment on above: Performed By: #### 6 35-3, 611-4 ####[facility] [id number] [address] [address] [place] Basic metabolic 2000 panelon 11-11-2024 Anion gap [Moles/Vol] 12 mmol/L Normal 8-15 [facility] Comment on above: Order Comment: Speci men Type: BLOOD SPECIMENOrdering Facility: [facility] Address: [address] [place] [address] Performed By: #### 2 276-4, 72533-9, 75109-9, 06145-3, 2777-1, 33755-3 ####[facility] [id number] [place] [address] [place] Calcium [Mass/Vol] 9.1 mg/dL Normal 8.5-10.2 [facility] Comment on above: Order Comment: Speci men Type: BLOOD SPECIMENOrdering Facility: [facility] Address: [address] [place] [address] Performed By: #### 2 276-4, 53798-1, 59275-4, 60450-4, 2777-1, 80726-2 ####[facility] [id number] [place] [id number] [place] Chloride [Moles/Vol] 97 mmol/L Low 98-107 [facility] Comment on above: Order Comment: Speci men Type: BLOOD SPECIMENOrdering Facility: [facility] Address: [address] [place] [address] Performed By: #### 2 276-4, 82776-3, 59562-4, 69035-3, 2777-1, 10516-4 ####[facility] [id number] [place] [id number] [place] CO2 [Moles/Vol] 14 mmol/L Low 22-30 [facility] Comment on above: Order Comment: Speci men Type: BLOOD SPECIMENOrdering Facility: [facility] Address: [address] [place] [address] Performed By: #### 2 276-4, 79208-4, 46731-6, 46189-8, 2777-1, 22351-7 ####[facility] [id number] [place] [address] [place] Creatinine [Mass/Vol] 1.35 mg/dL High 0.73-1.22 [facility] Comment on above: Order Comment: Speci men Type: BLOOD SPECIMENOrdering Facility: [facility] Address: [address] [place] [address] Performed By: #### 2 276-4, 33488-6, 91567-2, 97538-8, 7-1, ####[facility] [id number] [place] [address] [place] Creatinine and Glomerular filtration rate.predicted panel (S/P/Bld) 61 mL/min/1.73m??? Normal >=60 [facility] Comment on above: Order Comment: Speci men Type: BLOOD SPECIMENOrdering Facility: [facility] Address: [address] [place] [address] Result Comment: Patric mated Glomerular Filtration Rate [...] actual GFR. Performed By: #### 2 276-4, 29754-4, 56959-3, 35027-6, 2777-1, 71102-0 ####[facility] [id number] [place] [id number] [place] Glucose [Mass/Vol] 292 mg/dL High 74-99 [facility] Comment on above: Order Comment: Speci men Type: BLOOD SPECIMENOrdering Facility: [facility] Address: [address] [place] [address] Result Comment: The [place] Diabetes Association (ADA) provides guidance for cutoff [...] Standards of Medical Care in Diabetes 2016, [place] [employer]. Diabetes Care. 2016.39(Suppl 1). Performed By: #### 2 276-4, 31548-8, 80776-9, 40683-7, 2777-1, 86931-3 ####[facility] [id number] [place] [id number] [place] Potassium [Moles/Vol] 3.6 mmol/L Low 3.7-5.1 [facility] Comment on above: Order Comment: Speci men Type: BLOOD SPECIMENOrdering Facility: [facility] Address: [address] [place] [address] Performed By: #### 2 276-4, 57877-9, 20866-9, 30009-1, 2777-1, 57263-6 ####[facility] [id number] [place] [id number] [place] Sodium [Moles/Vol] 123 mmol/L Low 136-144 [facility] Comment on above: Order Comment: Speci men Type: BLOOD SPECIMENOrdering Facility: [facility] Address: [address] [place], [place] [address] Performed By: #### 2 276-4, 70581-2, 82039-3, 93550-8, 2777-1, 54949-1 ####[facility] [id number] [place] [address] [place] Urea nitrogen [Mass/Vol] 22 mg/dL Normal 9-24 [facility] Comment on above: Order Comment: Speci men Type: BLOOD SPECIMENOrdering Facility: [facility] Address: [address] [place] [address] Performed By: #### 2 276-4, 43206-0, 54762-6, 41429-1, 2777-1, 01596-0 ####[facility] [id number] [address] [place] CARDIOLIPIN IGG ABSon 2024 Cardiolipin IgG IA Qn (S) <9.0 Normal <15.0 [facility] Comment on above: Order Comment: Speci men Type: BLOOD SPECIMENOrdering Facility: [facility] Address: [address] [place] [address] Result Comment: <15 GPL [id number] GPL Indeterminate>20 GPL PositiveThe following results were obtained with the [employer] QUANTA Lite TEZ IgG III ANDERS. Cardiolipin IgG values obtained with the different manufacturers' assay methods may not be used interchangeably. The magnitude of the reported IgG levels cannot be correlated to an endpoint titer. Performed By: #### 5 076-5KATHI CARDIM ####[facility] [id number] [address] [place] CARDIOLIPIN IGM ABSon 2024 Cardiolipin IgM IA Qn (S) <9.0 Normal <12.5 [facility] Comment on above: Order Comment: Speci men Type: BLOOD SPECIMENOrdering Facility: [facility] Address: [address] [place] [address] Result Comment: <12. 5 MPL Bohxcwws30.5-20 MPL Indeterminate>20 MPL PositiveThe following results were obtained with the [employer] QUANTA Lite TEZ IgM III ANDERS. Cardiolipin IgM values obtained with the different manufacturers' assay methods may not be used interchangeably. The magnitude of the reported IgM levels cannot be correlated to an endpoint titer.??? Performed By: #### 5 076-5, MELVIN ARMENTA ####[facility] [id number] [place] [address] [place] CASE MANAGEMon 11-11-2024 CASE MANAGEM Normal [facility] CBC W Auto Differential pane l (Bld)on 11-11-2024 Basophils (Bld) [#/Vol] 0.04 10*3/uL Normal <0.11 [facility] Comment on above: Order Comment: Speci men Type: BLOOD SPECIMENOrdering Facility: [facility] Address: [address] [place] [address] Performed By: #### I PFR, 08447-0, 11338-8 ####[facility] [id number] [address], [place] [address] [place] Basophils/100 WBC (Bld) 0.4 % Normal C [facility] Comment on above: Order Comment: Speci men Type: BLOOD SPECIMENOrdering Facility: [facility] Address: [address] [place] [address] Performed By: #### I PFR, 21174-4, 42609-3 ####[facility] [id number] [address], [address] [place] Differential cell count method Nom (Bld) Auto Normal [facility] Comment on above: Order Comment: Speci men Type: BLOOD SPECIMENOrdering Facility: [facility] Address: [address] [place] [address] Performed By: #### I PFR, 15573-2, 20014-6 ####[facility] [id number] [address], [facility] [place] Eosinophils (Bld) [#/Vol] 0.35 10*3/uL Normal <0.46 [facility] Comment on above: Order Comment: Speci men Type: BLOOD SPECIMENOrdering Facility: [facility] Address: [address] [place] [address] Performed By: #### I PFR, 41158-0, ####[facility] [id number] [facility] [place] [address] [place] Eosinophils/100 WBC (Bld) 3.4 % Normal [facility] Comment on above: Order Comment: Speci men Type: BLOOD SPECIMENOrdering Facility: [facility] Address: [address] [place] [address] Performed By: #### I PFR, 66517-7, ####[facility] [id number] [facility] [place] [address] [place] Erythrocyte distribution width (RBC) [Ratio] 17.4 % High 11.5-15.0 [facility] Comment on above: Order Comment: Speci men Type: BLOOD SPECIMENOrdering Facility: [facility] Address: [address] [place] [address] Performed By: #### I PFR, 45636-6, ####[facility] [id number] [place] [address] [place] Hematocrit (Bld) [Volume fraction] 24.6 % Low 39.0-51.0 [facility] Comment on above: Order Comment: Speci men Type: BLOOD SPECIMENOrdering Facility: [facility] Address: [address] [place] [address] Performed By: #### I PFR, 70207-8, ####[facility] [id number] [facility] [address], [facility] [place] Hemoglobin (Bld) [Mass/Vol] 8.4 g/dL Low 13.0-17.0 [facility] Comment on above: Order Comment: Speci men Type: BLOOD SPECIMENOrdering Facility: [facility] Address: [address] [place] [address] Performed By: #### I PFR, 78803-8, 93348-4 ####[facility] [id number] [place] [address] [place] Immature granulocytes (Bld) [#/Vol] 0.08 10*3/uL Normal <0.10 [facility] Comment on above: Order Comment: Speci men Type: BLOOD SPECIMENOrdering Facility: [facility] Address: [address] [place] [address] Performed By: #### I PFR, 34476-9, 66360-6 ####[facility] [id number] [place] [address] [place] Immature granulocytes/100 WBC (Bld) 0.8 % Normal [facility] Comment on above: Order Comment: Speci men Type: BLOOD SPECIMENOrdering Facility: [facility] Address: [address] [place] [address] Performed By: #### I PFR, 46072-4, 92413-7 ####[facility] [id number] [place] [address] [place] Lymphocytes (Bld) [#/Vol] 0.99 10*3/uL Low 1.00-4.00 [facility] Comment on above: Order Comment: Speci men Type: BLOOD SPECIMENOrdering Facility: [facility] Address: [address] [place] [address] Performed By: #### I PFR, 28260-6, 83820-4 ####[facility] [id number] [place] [address] [place] Lymphocytes/100 WBC (Bld) 9.5 % Normal [facility] Comment on above: Order Comment: Speci men Type: BLOOD SPECIMENOrdering Facility: [facility] Address: [address] [place] [address] Performed By: #### I PFR, 95914-5, 12928-4 ####[facility] [id number] [place] [address] [place] MCH (RBC) [Entitic mass] 31.9 pg Normal 26.0-34.0 [facility] Comment on above: Order Comment: Speci men Type: BLOOD SPECIMENOrdering Facility: [facility] Address: [address] [place] [address] Performed By: #### I PFR, 83316-4, 05448-4 ####[facility] [id number] [place] [address] [place] MCHC (RBC) [Mass/Vol] 34.1 g/dL Normal 30.5-36.0 [facility] Comment on above: Order Comment: Speci men Type: BLOOD SPECIMENOrdering Facility: [facility] Address: [address] [place] [address] Performed By: #### I PFR, 26006-4, 32097-1 ####[facility] [id number] [place] [address] [place] MCV (RBC) [Entitic vol] 93.5 fL Normal 80.0-100.0 C [facility] Comment on above: Order Comment: Speci men Type: BLOOD SPECIMENOrdering Facility: [facility] Address: [address] [place] [address] Performed By: #### I PFR, 07610-0, 03846-0 ####[facility] [id number] [place] [address] [place] Monocytes (Bld) [#/Vol] 0.97 10*3/uL High <0.87 [facility] Comment on above: Order Comment: Speci men Type: BLOOD SPECIMENOrdering Facility: [facility] Address: [address] [place] [address] Performed By: #### I PFR, 02710-5, 23103-6 ####[facility] [id number] [address] [address] [place] Monocytes/100 WBC (Bld) 9.3 % Normal [facility] Comment on above: Order Comment: Speci men Type: BLOOD SPECIMENOrdering Facility: [facility] Address: [address] [place] [address] Performed By: #### I PFR, 01110-9, 56589-5 ####[facility] [id number] [place] [address] [place] Neutrophils (Bld) [#/Vol] 8.00 10*3/uL High 1.45-7.50 [facility] Comment on above: Order Comment: Speci men Type: BLOOD SPECIMENOrdering Facility: [facility] Address: [address] [place] [address] Performed By: #### I PFR, 70895-1, 43534-5 ####[facility] [id number] [address] [place] Neutrophils/100 WBC (Bld) 76.6 % Normal [facility] Comment on above: Order Comment: Speci men Type: BLOOD SPECIMENOrdering Facility: [facility] Address: [address] [place] [address] Performed By: #### I PFR, 54158-6, 97599-0 ####[facility]IA [id number] [address] [address] [place] Nucleated RBC (Bld) [#/Vol] 10*3/uL Normal <0.01 [facility] Comment on above: Order Comment: Speci men Type: BLOOD SPECIMENOrdering Facility: [facility] Address: [address] [place] [address] Performed By: #### I PFR, 43779-0, 17325-2 ####[facility] [id number] [address] [address] [place] Nucleated RBC/100 WBC (Bld) [Ratio] 0.0 /100 WBC Normal [facility] Comment on above: Order Comment: Speci men Type: BLOOD SPECIMENOrdering Facility: [facility] Address: [address] [place] [address] Performed By: #### I PFR, 74337-3, 12019-6 ####[facility] [id number] [place] [id number] [place] Platelet mean volume (Bld) [Entitic vol] 11.5 fL Normal 9.0-12.7 [facility] Comment on above: Order Comment: Speci men Type: BLOOD SPECIMENOrdering Facility: [facility] Address: [address] [place] [address] Performed By: #### I PFR, 09505-1, 41483-0 ####[facility] [id number] [place] [address] [place] Platelets (Bld) [#/Vol] 43 10*3/uL Low 150-400 C [facility] Comment on above: Order Comment: Speci men Type: BLOOD SPECIMENOrdering Facility: [facility] Address: [address] [place] [address] Performed By: #### I PFR, 96378-2, 84564-4 ####[facility] [id number] [place] [id number] [place] RBC (Bld) [#/Vol] 2.63 10*6/uL Low 4.20-6.00 [facility] Comment on above: Order Comment: Speci men Type: BLOOD SPECIMENOrdering Facility: [facility] Address: [address] [place] [address] Performed By: #### I PFR, 89536-3, 58346-9 ####[facility] [id number] [place] [address] [place] WBC (Bld) [#/Vol] 10.43 10*3/uL Normal 3.70-11.00 [facility] Comment on above: Order Comment: Speci men Type: BLOOD SPECIMENOrdering Facility: [facility] Address: [address] [place] [address] Performed By: #### I PFR, 50541-4, 32913-3 ####[facility] [id number] [place] [address] [place] Basophils (Bld) [#/Vol] 0.06 10*3/uL Normal <0.11 [facility] Comment on above: Order Comment: Speci men Type: BLOOD SPECIMENOrdering Facility: [facility] Address: [address] [place] [address] Performed By: #### 5 5454-3, 93065-4 ####[facility] [id number] [place] [address] [place] Basophils/100 WBC (Bld) 0.4 % Normal [facility] Comment on above: Order Comment: Speci men Type: BLOOD SPECIMENOrdering Facility: [facility] Address: [address] [place] [address] Performed By: #### 5 5454-3, 32935-3 ####[facility] [id number] [place] [address] [place] Differential cell count method Nom (Bld) Auto Normal [facility] Comment on above: Order Comment: Speci men Type: BLOOD SPECIMENOrdering Facility: [facility] Address: [address] [place] [address] Performed By: #### 5 5454-3, 12693-3 ####[facility] [id number] [place] [address] [place] Eosinophils (Bld) [#/Vol] 0.40 10*3/uL Normal <0.46 [facility] Comment on above: Order Comment: Speci men Type: BLOOD SPECIMENOrdering Facility: [facility] Address: [address] [place] [address] Performed By: #### 5 5454-3, 63108-7 ####[facility] [id number] [facility] [place] [address] [place] Eosinophils/100 WBC (Bld) 2.5 % Normal [facility] Comment on above: Order Comment: Speci men Type: BLOOD SPECIMENOrdering Facility: [facility] Address: [address] [place] [address] Performed By: #### 5 5454-3, 08396-0 ####[facility] [id number] [place] [address] [place] Erythrocyte distribution width (RBC) [Ratio] 18.0 % High 11.5-15.0 [facility] Comment on above: Order Comment: Speci men Type: BLOOD SPECIMENOrdering Facility: [facility] Address: [address] [place] [address] Performed By: #### 5 5454-3, 39031-8 ####[facility] [id number] [place] [address] [place] Hematocrit (Bld) [Volume fraction] 30.4 % Low 39.0-51.0 [facility] Comment on above: Order Comment: Speci men Type: BLOOD SPECIMENOrdering Facility: [facility] Address: [address] [place] [address] Performed By: #### 5 5454-3, 34713-3 ####[facility] [id number] [place] [id number] [place] Hemoglobin (Bld) [Mass/Vol] 10.2 g/dL Low 13.0-17.0 [facility] Comment on above: Order Comment: Speci men Type: BLOOD SPECIMENOrdering Facility: [facility] Address: [address] [place] [address] Performed By: #### 5 5454-3, 72980-7 ####[facility] [id number] [place] [address] [place] Immature granulocytes (Bld) [#/Vol] 0.18 10*3/uL High <0.10 [facility] Comment on above: Order Comment: Speci men Type: BLOOD SPECIMENOrdering Facility: [facility] Address: [address] [place] [address] Performed By: #### 5 5454-3, 68200-1 ####[facility] [id number] [place] [address] [place] Immature granulocytes/100 WBC (Bld) 1.1 % Normal [facility] Comment on above: Order Comment: Speci men Type: BLOOD SPECIMENOrdering Facility: [facility] Address: [address] [place] [address] Performed By: #### 5 5454-3, 42543-3 ####[facility] [id number] [place] [address] [place] Lymphocytes (Bld) [#/Vol] 1.19 10*3/uL Normal 1.00-4.00 [facility] Comment on above: Order Comment: Speci men Type: BLOOD SPECIMENOrdering Facility: [facility] Address: [address] [place] [address] Performed By: #### 5 5454-3, 07407-8 ####[facility]IA [id number] [place] [address] [place] Lymphocytes/100 WBC (Bld) 7.6 % Normal [facility] Comment on above: Order Comment: Speci men Type: BLOOD SPECIMENOrdering Facility: [facility] Address: [address] [place] [address] Performed By: #### 5 5454-3, 63730-8 ####[facility] [id number] [place] [address] [place] MCH (RBC) [Entitic mass] 31.3 pg Normal 26.0-34.0 [facility] Comment on above: Order Comment: Speci men Type: BLOOD SPECIMENOrdering Facility: [facility] Address: [address] [place] [address] Performed By: #### 5 5454-3, 04168-2 ####[facility] [id number] [place] [address] [place] MCHC (RBC) [Mass/Vol] 33.6 g/dL Normal 30.5-36.0 [facility] Comment on above: Order Comment: Speci men Type: BLOOD SPECIMENOrdering Facility: [facility] Address: [address] [place] [address] Performed By: #### 5 5454-3, 06308-9 ####[facility] [id number] [place] [address] [place] MCV (RBC) [Entitic vol] 93.3 fL Normal 80.0-100.0 C [facility] Comment on above: Order Comment: Speci men Type: BLOOD SPECIMENOrdering Facility: [facility] Address: [address] [place] [address] Performed By: #### 5 5454-3, 78176-6 ####[facility] [id number] [place] [id number] [place] Monocytes (Bld) [#/Vol] 1.36 10*3/uL High <0.87 [facility] Comment on above: Order Comment: Speci men Type: BLOOD SPECIMENOrdering Facility: [facility] Address: [address] [place] [address] Performed By: #### 5 5454-3, 29812-4 ####[facility] [id number] [address], [place] [address] [place] Monocytes/100 WBC (Bld) 8.6 % Normal [facility] Comment on above: Order Comment: Speci men Type: BLOOD SPECIMENOrdering Facility: [facility] Address: [address] [place] [address] Performed By: #### 5 5454-3, 26552-7 ####[facility] [id number] [place] [address] [place] Neutrophils (Bld) [#/Vol] 12.55 10*3/uL High 1.45-7.50 [facility] Comment on above: Order Comment: Speci men Type: BLOOD SPECIMENOrdering Facility: [facility] Address: [address] [place] [address] Performed By: #### 5 5454-3, 67441-5 ####[facility] [id number] [place] [address] [place] Neutrophils/100 WBC (Bld) 79.8 % Normal [facility] Comment on above: Order Comment: Speci men Type: BLOOD SPECIMENOrdering Facility: [facility] Address: [address] [place] [address] Performed By: #### 5 5454-3, 87182-0 ####[facility] [id number] [place] [address] [place] Nucleated RBC (Bld) [#/Vol] 10*3/uL Normal <0.01 [facility] Comment on above: Order Comment: Speci men Type: BLOOD SPECIMENOrdering Facility: [facility] Address: [address] [place] [address] Performed By: #### 5 5454-3, 00474-8 ####[facility] [id number] [place] [address] [place] Nucleated RBC/100 WBC (Bld) [Ratio] 0.0 /100 WBC Normal [facility] Comment on above: Order Comment: Speci men Type: BLOOD SPECIMENOrdering Facility: [facility] Address: [address] [place] [address] Performed By: #### 5 5454-3, 88328-1 ####[facility] [id number] [place] [address] [place] Platelet mean volume (Bld) [Entitic vol] 12.1 fL Normal 9.0-12.7 [facility] Comment on above: Order Comment: Speci men Type: BLOOD SPECIMENOrdering Facility: [facility] Address: [address] [place] [address] Performed By: #### 5 5454-3, 63887-4 ####[facility] [id number] [place] [id number] [place] Platelets (Bld) [#/Vol] 52 10*3/uL Low 150-400 C [facility] [place] Comment on above: Order Comment: Speci men Type: BLOOD SPECIMENOrdering Facility: [facility] Address: [address] [place] [address] Result Comment: Resu lts checked and verified.No clot detected. Performed By: #### 5 5454-3, 41443-1 ####[facility]IA [id number] [place] [address] [place] RBC (Bld) [#/Vol] 3.26 10*6/uL Low 4.20-6.00 [facility] Comment on above: Order Comment: Speci men Type: BLOOD SPECIMENOrdering Facility: [facility] Address: [address] [place] [address] Performed By: #### 5 5454-3, 23603-4 ####[facility] [id number] [place] [address] [place] WBC (Bld) [#/Vol] 15.74 10*3/uL High 3.70-11.00 [facility] Comment on above: Order Comment: Speci men Type: BLOOD SPECIMENOrdering Facility: [facility] Address: [address] [place] [address] Performed By: #### 5 5454-3, 22516-5 ####[facility] [id number] [address] [place] CEA SerPl-mCncon 11-11-2024 Carcinoembryonic Ag [Mass/Vol] 13.0 ng/mL High <=2.9 [facility] Comment on above: Order Comment: Speci men Type: BLOOD SPECIMENOrdering Facility: [facility] Address: [address] [place] [address] Result Comment: Carc inoembryonic antigen test is used as an aid in monitoring response to treatment or recurrence in patients with established colorectal, breast, lung, prostatic, pancreatic, and ovarian carcinomas. Clinical correlation is required.The Carcinoembryonic antigen test was performed using the [employer] Unicel DXI paramagnetic particle chemiluminescent immunoassay method. Results obtained with different assay methods or kits cannot be used interchangeably. Performed By: #### 2 039-6, 75098-4, 2532-0 ####[facility] [id number] [place] [address] [place] COAG CORE PANEL BLDon 2024 aPTT Coag (PPP) [Time] 41.3 s High 23.0-32.4 [facility] Comment on above: Order Comment: Speci men Type: BLOOD SPECIMENOrdering Facility: [facility] Address: [address] [place] [address] Performed By: #### C ORPNL ####[facility] [id number] [place] [id number] [place] Fibrinogen Coag (PPP) [Mass/Vol] 88 mg/dL Low 200-400 [facility] Comment on above: Order Comment: Speci men Type: BLOOD SPECIMENOrdering Facility: [facility] Address: [address] [place] [address] Result Comment: Samp le checked for clot.Result rechecked. Performed By: #### C ORPNL ####[facility] [id number] [place] [address] [place] INR Coag (PPP) [Relative time] 2.1 {INR} High 0.9-1.3 [facility] Comment on above: Order Comment: Speci men Type: BLOOD SPECIMENOrdering Facility: [facility] Address: [address] [place] [address] Result Comment: Sarah min K Antagonist (VKA) Therapeutic Range: INR 2 to 3 (Target INR of 2.5)Note: For patients treated with VKA drugs, such as warfarin, the [place] [employer] 2012 Guideline recommends [...] al. Chest 2012, 141:7S-47SHector RA, et al. [facility] 2017, 70: 252-289 Performed By: #### C ORPNL ####[facility]IA [id number] [place] [address] [place] PT Coag (PPP) [Time] 21.8 s High 9.7-13.0 [facility] Comment on above: Order Comment: Speci men Type: BLOOD SPECIMENOrdering Facility: [facility] Address: [address] [place] [address] Performed By: #### C ORPNL ####[facility]IA [id number] [address] [address] [place] CONSULTon 11-11-2024 CONSULT Normal [facility] CONSULT Normal [facility] CRP SerPl-mCncon 11-11-2024 CRP [Mass/Vol] 0.5 mg/dL Normal <0.9 [facility] Comment on above: Order Comment: Speci men Type: BLOOD SPECIMENOrdering Facility: [facility] Address: [address] [place] [address] Performed By: #### D ASHLEY, 1986-12 ####[facility] [id number] [place] [address] [place] CYTOLOGY NON-GYNon AP DISCLAIMER Normal [facility] Comment on above: Order Comment: Speci men Type: FLUID SPECIMENOrdering Facility: [facility] Address: [address] [place] [address] Result Comment: Shellie pugh Developed Test (LDT) Disclaimer:Performance characteristics of immunohistochemical, immunofluorescent, and chromogenic in-situ hybridization tests have been determined by the performing laboratory within [facility] Pathology and Laboratory Medicine Department ([facility], [facility], [facility], [facility], [facility], [facility], or [facility]) in a manner consistent with CLIA requirements. One or more of these tests may not have been cleared or approved by the FDA. [facility] is regulated under CLIA as qualified to perform high-complexity testing. These tests are used for clinical purposes. These should not be regarded as investigational or for research. Positive and negative controls stain appropriately. Performed By: #### C YTONON ####[facility] [id number] [place] [id number] [place] CASE REPORT Normal [facility] Comment on above: Order Comment: Speci men Type: FLUID SPECIMENOrdering Facility: [facility] Address: [address] [place] [address] Result Comment: [facility] Cytology Report Case: [id number] Provider: Yaritza Juarez, Collected: 11/11/2024 05:14 PM STAMPER BLOCKER.CNPOrdering Location: [place] [address] Received: 11/11/2024 08:30 PMPathologist: Sameer Fournier MDSpecimen: Abdomen Performed By: #### C YTONON ####[facility] [id number] [address] [address] [place] CLINICAL HISTORY paracentesis fluid Normal [facility] Comment on above: Order Comment: Speci men Type: FLUID SPECIMENOrdering Facility: [facility] Address: [address] [place] [address] Performed By: #### C YTONON ####[facility] [id number] [address] [place] FINAL DIAGNOSIS Normal [facility] Comment on above: Order Comment: Speci men Type: FLUID SPECIMENOrdering Facility: [facility] Address: [address] [place] [address] Result Comment: A - Abdomen, Fluid Negative for malignant cells.The following cell blocks were associated with this case:A1\X09\Cell Block, Alcohol Fixed\X09\ at 1034 EDT Performed By: #### C YTONON ####[facility] [id number] [address] [place] FINAL PERFORMING LAB Normal [facility] Comment on above: Order Comment: Speci men Type: FLUID SPECIMENOrdering Facility: [facility] Address: [address] [place] [address] Result Comment: Tech nical component, paving crew foreman screening performed at: [facility], [address] [place] [address] CLIA: [id number] interpretation performed at: [facility], [address] [place], [place] [address] CLIA# [id number] Director: Titi Voss MD Performed By: #### C YTONON ####[facility]IA [id number] [address] OF [facility] A. Abdomen Normal [facility] Comment on above: Order Comment: Speci men Type: FLUID SPECIMENOrdering Facility: [facility] Address: [address] [place] [address] Result Comment: 1450 cc opaque lexis fluid . ThinPrep and Cell Block prepared. Performed By: #### C YTONON ####[facility] [id number] [address] [place] Cancer Ag19-9 SerPl-aCncon 0 11-11-2024 Cancer Ag 19-9 Qn <2.0 Normal <36.0 [facility] Comment on above: Order Comment: Speci men Type: BLOOD SPECIMENOrdering Facility: [facility] Address: [address] [place] [address] Result Comment: [facility] er antigen 19-9 test is used as an aid in monitoring response to treatment or recurrence in patients with established pancreatic, hepatobiliary, or gastrointestinal malignancies. Clinical correlation is required.The CA 19-9 Antigen test was performed using the Fi[employer]a Unicel DXI paramagnetic particle chemiluminescent immunoassay method. Results obtained with different assay methods or kits cannot be used interchangeably. Performed By: #### 2 039-6, 87114-9, 2532-0 ####[facility] [id number] [address] [place] Cardiolipin IgA Ser IA-aCnco n 11-11-2024 Cardiolipin IgA IA Qn (S) 9.7 [APL'U] Normal <12.0 [facility] Comment on above: Order Comment: Speci men Type: BLOOD SPECIMENOrdering Facility: [facility] Address: [address] [place] [address] Result Comment: <12 APL [id number] APL Indeterminate>20 APL PositiveThe following results were obtained with the [employer] QUANTA Lite TEZ IgA III ANDERS. Cardiolipin IgA values obtained with the different manufacturers' assay methods may not be used interchangeably. The magnitude of the reported IgA levels cannot be correlated to an endpoint titer. Performed By: #### 5 076-5, MELVIN ARMENTA ####[facility] [id number] [place] [address] [place] DIRECT BILIRUBIN BLOODon Bilirubin.conjugated [Mass/Vol] 1.1 mg/dL High <0.3 [facility] Comment on above: Order Comment: Speci men Type: BLOOD SPECIMENOrdering Facility: [facility] Address: [address] [place] [address] Performed By: #### D ASHLEY, 1986-12 ####[facility] [id number] [place] [address] [place] ECG COMPLETEon 11-11-2024 ECG COMPLETE Normal [facility] [id number] 11-11-2024 ECG01 Normal [facility] Ferritin SerPl-ncon 2024 Ferritin [Mass/Vol] 82.4 ng/mL Normal 30.3-565.7 [facility] Comment on above: Order Comment: Speci men Type: BLOOD SPECIMENOrdering Facility: [facility] Address: [address] [place] [address] Performed By: #### 2 276-4, 52656-9, 48744-1, 93517-0, 2777-1, 43865-7 ####[facility] [id number] [place] [address] [place] Fibrinogen PPP-mCncon 2024 Fibrinogen Coag (PPP) [Mass/Vol] 90 mg/dL Low 200-400 [facility] Comment on above: Order Comment: Speci men Type: BLOOD SPECIMENOrdering Facility: [facility] Address: [address] [place] [address] Result Comment: Sammichael le checked for clot.Result rechecked. Performed By: #### 3 255-7, 56994-5 ####[facility] [id number] [address] [address] [place] HISTORY PHYSICALon HISTORY PHYSICAL Normal [facility] HYPERCOAG PANELon 11-11-2024 Activated protein C resistance Coag (PPP) [Time ratio] 2.10 Ratio Normal >1.96 [facility] Comment on above: Order Comment: Speci men Type: BLOOD SPECIMENOrdering Facility: [facility] Address: [address] [place] [address] Performed By: #### L [id number], HCOAG, 6303-2, 70295-7, 17121-3 ####[facility] [id number] [address] [place] Antithrombin actual/normal Chromogenic method (PPP) [Rel catalytic activity/Vol] 30 % Low 84-138 [facility] Comment on above: Order Comment: Speci men Type: BLOOD SPECIMENOrdering Facility: [facility] Address: [address] [place] [address] Performed By: #### L [id number], HCOAG, 6303-2, 71351-5, 79389-2 ####[facility] [id number] [place] [address] [place] aPTT Coag (Bld) [Time] 47.9 s High 24.0-35.1 [facility] Comment on above: Order Comment: Speci men Type: BLOOD SPECIMENOrdering Facility: [facility] Address: [address] [place] [address] Performed By: #### L [id number], HCOAG, 6303-2, 61048-8, 41850-4 ####[facility] LABIA [id number] [place] [id number] [place] aPTT W excess hexagonal phase phospholipid Coag (PPP) [Time] 36.5 seconds Normal 34.0-51.8 [facility] Comment on above: Order Comment: Speci men Type: BLOOD SPECIMENOrdering Facility: [facility] Address: [address] [place] [address] Performed By: #### L [id number], HCOAG, 6303-2, 12843-7, 35599-8 ####[facility] [id number] [place] [address] [place] aPTT-LA w 1:1 PNP Coag (PPP) [Time] 32.5 seconds Normal <33.2 [facility] Comment on above: Order Comment: Speci men Type: BLOOD SPECIMENOrdering Facility: [facility] Address: [address] [place] [address] Result Comment: This test was developed, and its performance characteristics determined by the [facility] Department of Pathology and Laboratory Medicine. It has not been cleared or approved by the FDA. The [facility] Department of Pathology and Laboratory Medicine is regulated under CLIA as qualified to perform high-complexity testing. This test is used for clinical purposes. It should not be regarded as investigational or for research. Performed By: #### L [id number], HCOAG, 6303-2, 85424-7, 51590-8 ####[facility] [id number] [place] [address] [place] Coagulation factor VIII activity actual/normal Coag (PPP) [Relative time] 332 % High 50-173 [facility] Comment on above: Order Comment: Speci men Type: BLOOD SPECIMENOrdering Facility: [facility] Address: [address] [place] [address] Performed By: #### L [id number], HCOAG, 6303-2, 44198-3, 77331-3 ####[facility] [id number] [place] [address] [place] Coagulation factor X activated act Coag Qn (PPP) <0.10 Normal <0.10 [facility] Comment on above: Order Comment: Speci men Type: BLOOD SPECIMENOrdering Facility: [facility] Address: [address] [place] [address] Result Comment: This test was developed, and its performance characteristics determined by the [facility] Department of Pathology and Laboratory Medicine. It has not been cleared or approved by the FDA. The [facility] Department of Pathology and Laboratory Medicine is regulated under CLIA as qualified to perform high-complexity testing. This test is used for clinical purposes. It should not be regarded as investigational or for research. Performed By: #### L [id number], HCOAG, 6303-2, 24861-4, 82259-5 ####[facility] [id number] [place] [address] [place] Delta dRVVT Coag (PPP) [Time diff] 2.2 delta seconds Normal <7.1 [facility] Comment on above: Order Comment: Speci men Type: BLOOD SPECIMENOrdering Facility: [facility] Address: [address] [place] [address] Performed By: #### L [id number], HCOAG, 6303-2, 38940-0, 76647-5 ####[facility] [id number] [place] [address] [place] dRVVT W excess hexagonal phase phospholipid actual/normal Coag (PPP) [Relative time] 34.3 seconds Normal 34.2-47.9 [facility] Comment on above: Order Comment: Speci men Type: BLOOD SPECIMENOrdering Facility: [facility] Address: [address] [place] [address] Performed By: #### L [id number], HCOAG, 6303-2, 09173-5, 60403-9 ####[facility] [id number] [place] [address] [place] Protein C actual/normal Coag (PPP) [Relative time] 24 % Low 76-147 [facility] Comment on above: Order Comment: Speci men Type: BLOOD SPECIMENOrdering Facility: [facility] Address: [address] [place] [address] Performed By: #### L [id number], HCOAG, 6303-2, 86584-3, 66727-2 ####[facility] [id number] [place] [id number] [facility] Protein S actual/normal Coag (PPP) [Relative time] 28 % Low 59-152 [facility] Comment on above: Order Comment: Speci men Type: BLOOD SPECIMENOrdering Facility: [facility] Address: [address] [place] [address] Performed By: #### L [id number], HCOAG, 6303-2, 55099-2, 91522-1 ####[facility] [id number] [address] STATES [facility] Protein S Free Ag actual/normal IA (PPP) [Relative mass conc] 45 % Low 55-148 [facility] Comment on above: Order Comment: Speci men Type: BLOOD SPECIMENOrdering Facility: [facility] Address: [address] [place] [address] Performed By: #### L [id number], HCOAG, 6303-2, 94883-9, 15371-6 ####[facility] [id number] [place] [address] [place] Thrombin time Coag (PPP) [Time] 20.0 seconds High <18.6 [facility] Comment on above: Order Comment: Speci men Type: BLOOD SPECIMENOrdering Facility: [facility] Address: [address] [place] [address] Performed By: #### L [id number], HCOAG, 6303-2, 89812-1, 91833-5 ####[facility] [id number] [address] [place] HYPERCOAG PANEL INTERPon INTERPRETATION (HYPERCOAG) Normal [facility] Comment on above: Order Comment: Speci men Type: BLOOD SPECIMENOrdering Facility: [facility] Address: [facility] [address], [place] [address] Result Comment: Amisha gallegos - see comment [...] negative for the c.*97G>A variant (legacy name [id number]>A) in the 3' untranslated region of the [...] phase phospholipid neutralization. Performed By: #### L [id number], HCOAG, 6303-2, 42796-0, 79414-5 ####[facility] [id number] [place] [address] [place] Pathologist name Reviewed by Julia Howell M.D., Ph.D [facility] Comment on above: Order Comment: Ezekiel ramirez Type: BLOOD SPECIMENOrdering Facility: [facility] Address: [address] [place] [address] Performed By: #### L [id number], HCOAG, 6303-2, 32757-3, 66666-2 ####[facility] [id number] [place] [address] [place] Haptoglob SerPl-mCncon 11-11 Haptoglobin [Mass/Vol] 15 mg/dL Low 31-238 [facility] Comment on above: Order Comment: Ezekiel ramirez Type: BLOOD SPECIMENOrdering Facility: [facility] Address: [address] [place] [address] Performed By: #### 2 4362-6, 4542-7 ####[facility] [id number] [address] [place] HbA1c (Bld)on 11-11-2024 Average glucose Estimated from glycated hemoglobin (Bld) [Mass/Vol] 154 mg/dL Normal [facility] Comment on above: Order Comment: Ezekiel ramirez Type: BLOOD SPECIMENOrdering Facility: [facility] Address: [address] [place] [address] Result Comment: eAG: (Estimated average glucose) is a calculated value from HgbA1c and is sales representative aircraft of the average blood glucose level in the last 2-3 month period. Performed By: #### 5 5454-3, 22100-1 ####[facility] [id number] [place] [id number] [place] HbA1c (Bld) [Mass fraction] 7.0 % High 4.3-5.6 [facility] Comment on above: Order Comment: Ezekiel ramirez Type: BLOOD SPECIMENOrdering Facility: [facility] Address: [address] [place] [address] Result Comment: [place] Diabetes Association guidelines indicate that patients with HgbA1c in the range 5.7-6.4% are at increased risk for development of diabetes, and intervention by lifestyle modification may be beneficial. HgbA1c greater or equal to 6.5% is considered diagnostic of diabetes. Performed By: #### 5 5454-3, 30878-1 ####[facility] [id number] [address] [place] [address] [place] Hepatic function 2000 panelo n 11-11-2024 Albumin [Mass/Vol] 2.1 g/dL Low 3.9-4.9 [facility] Comment on above: Order Comment: Ezekiel ramirez Type: BLOOD SPECIMENOrdering Facility: [facility] Address: [address] [place] [address] Performed By: #### 2 276-4, 90658-7, 98609-3, 22848-5, 2777-1, 91857-9 ####[facility] [id number] [place] [id number] [place] ALP [Catalytic activity/Vol] 310 U/L High 38-113 [facility] Comment on above: Order Comment: Speci men Type: BLOOD SPECIMENOrdering Facility: [facility] Address: [address] [place] [address] Performed By: #### 2 276-4, 58415-1, 63691-6, 05901-8, 2777-1, 11872-4 ####[facility] [id number] [place] [address] [place] ALT [Catalytic activity/Vol] 31 U/L Normal 10-54 [facility] Comment on above: Order Comment: Speci men Type: BLOOD SPECIMENOrdering Facility: [facility] Address: [address] [place] [address] Performed By: #### 2 276-4, 34914-8, 38396-9, 25889-2, 2777-1, 41010-3 ####[facility] [id number] [place] [address] [place] AST [Catalytic activity/Vol] 44 U/L High 14-40 [facility] Comment on above: Order Comment: Speci men Type: BLOOD SPECIMENOrdering Facility: [facility] Address: [address] [place] [address] Performed By: #### 2 276-4, 05779-1, 48773-1, 59297-9, 7-1, 29399-9 ####[facility] [id number] [place] [id number] [place] Bilirubin [Mass/Vol] 1.6 mg/dL High 0.2-1.3 [facility] Comment on above: Order Comment: Speci men Type: BLOOD SPECIMENOrdering Facility: [facility] Address: [address] [place] [address] Performed By: #### 2 276-4, 11597-1, 99603-5, 54448-3, 2777-1, 06902-1 ####[facility] [id number] [address] [address] [place] Bilirubin.conjugated [Mass/Vol] 1.0 mg/dL High <0.3 [facility] Comment on above: Order Comment: Speci men Type: BLOOD SPECIMENOrdering Facility: [facility] Address: [address] [place] [address] Performed By: #### 2 276-4, 27161-0, 18268-2, 35658-8, 2777-1, 78705-4 ####[facility] [id number] [place] [id number] [place] Protein [Mass/Vol] 5.3 g/dL Low 6.3-8.0 [facility] Comment on above: Order Comment: Speci men Type: BLOOD SPECIMENOrdering Facility: [facility] Address: [address] [place] [address] Performed By: #### 2 276-4, 83512-2, 43148-9, 54804-1, 2777-1, 16007-3 ####[facility] [id number] [place] [id number] [place] IMMATURE PLATELET FRACTIONon 11-11-2024 Platelets reticulated/100 platelets Auto (Bld) 7.7 % High 0.9-7.2 [facility] Comment on above: Order Comment: Speci men Type: BLOOD SPECIMENOrdering Facility: [facility] Address: [address] [place] [address] Performed By: #### I PFR, 71829-6, 60855-6 ####[facility] [id number] [place] [id number] [place] Iron and Iron binding capaci ty panelon 11-11-2024 Iron [Mass/Vol] 34 ug/dL Low 41-186 [facility] Comment on above: Order Comment: Speci men Type: BLOOD SPECIMENOrdering Facility: [facility] Address: [address] [place] [address] Performed By: #### 2 276-4, 94387-1, 32971-9, 84068-9, 2777-1, 82985-2 ####[facility] LABCLIA [id number] [place] [id number] [place] Iron binding capacity [Mass/Vol] 180 ug/dL Low 232-386 [facility] Comment on above: Order Comment: Speci men Type: BLOOD SPECIMENOrdering Facility: [facility] Address: [address] [place] [address] Performed By: #### 2 276-4, 61126-5, 76859-8, 07878-2, 2776-1, 31604-7 ####[facility] LABIA [id number] [place] [address] [place] Iron/TIBC [Molar ratio] 18.9 % Normal 15.0-57.0 C [facility] Comment on above: Order Comment: Speci men Type: BLOOD SPECIMENOrdering Facility: [facility] Address: [address] [place] [address] Performed By: #### 2 276-4, 34112-9, 49972-2, 79828-1, 2776-1, 19080-1 ####[facility] LABIA [id number] [place] [id number] [place] LDH SerPl-cCncon 11-11-2024 LDH [Catalytic activity/Vol] 321 U/L High 135-225 [facility] Comment on above: Order Comment: Speci men Type: BLOOD SPECIMENOrdering Facility: [facility] Address: [address] [place] [address] Performed By: #### 2 039-6, 77540-3, 2532-0 ####[facility] LABCLIA [id number] [address] [address] [place] Lipase Fld-cCncon 11-11-2024 Lipase (Body fld) [Catalytic activity/Vol] 29 U/L Normal See Comment [facility] Comment on above: Order Comment: Ezekiel ramirez Type: FLUID SPECIMENOrdering Facility: [facility] Address: [address] [place] [address] Result Comment: Pleu ral fluids: Lipase measurement [...] document C49A. PAULETTE Diaz: Clinical Laboratory Standards [place]: 2007.2. David Guillory. A review of pancreatic cyst fluid analysis in the differential diagnosis of pancreatic cyst lesions. [facility] [employer] 2013:0:1-16. Performed By: #### 1 747-5, 1795-4, 41569-7, 2881-1 ####[facility] LABCLIA [id number] [place] [address] [place] Lupus anticoagulant neutrali zation platelet Coag Ql (PPP)on 11-11-2024 aPTT Coag (Bld) [Time] 56.8 s High 30.2-43.0 Cl [facility] Comment on above: Order Comment: Ezekiel ramirez Type: BLOOD SPECIMENOrdering Facility: [facility] Address: [address] [place] [address] Result Comment: This test was developed, and its performance characteristics determined by the [facility] Department of Pathology and Laboratory Medicine. It has not been cleared or approved by the FDA. The [facility] Department of Pathology and Laboratory Medicine is regulated under CLIA as qualified to perform high-complexity testing. This test is used for clinical purposes. It should not be regarded as investigational or for research. Performed By: #### L [id number], HCOAG, 6303-2, 61245-8, 59827-9 ####[facility] LABIA [id number] [address] [address] [place] aPTT Coag (Bld) [Time] 36.5 s Normal 31.5-38.3 [facility] Comment on above: Order Comment: Speci james Type: BLOOD SPECIMENOrdering Facility: [facility] Address: [address] [place] [address] Result Comment: This test was developed, and its performance characteristics determined by the [facility] Department of Pathology and Laboratory Medicine. It has not been cleared or approved by the FDA. The [facility] Department of Pathology and Laboratory Medicine is regulated under CLIA as qualified to perform high-complexity testing. This test is used for clinical purposes. It should not be regarded as investigational or for research. Performed By: #### L [id number], HCOAG, 6303-2, 18751-7, 42279-9 ####[facility] [id number] [place] [id number] [place] [facility] PLATELET NEUT 0.0 Seconds Normal <1.9 [facility] Comment on above: Order Comment: Speci men Type: BLOOD SPECIMENOrdering Facility: [facility] Address: [address] [place] [address] Result Comment: This test was developed, and its performance characteristics determined by the [facility] Department of Pathology and Laboratory Medicine. It has not been cleared or approved by the FDA. The [facility] of Pathology and Laboratory Medicine is regulated under CLIA as qualified to perform high-complexity testing. This test is used for clinical purposes. It should not be regarded as investigational or for research. Performed By: #### L [id number], HCOAG, 6303-2, 61756-0, 40580-0 ####[facility] LABIA [id number] [place] [id number] [place] MANUAL DIFFERENTIAL, BODY FL UIDon 11-11-2024 DIF TTL, BODY FLUID 100 cells counted Normal [facility] Comment on above: Order Comment: Speci men Type: FLUID SPECIMENOrdering Facility: [facility] Address: [address] [place] [address] Performed By: #### C CBF, [id number] ####[facility] LABCLIA [id number] [address] [place] [address] [place] LYMPH%, BF 37 % High 18-36 [facility] Comment on above: Order Comment: Speci men Type: FLUID SPECIMENOrdering Facility: [facility] Address: [address] [place] [address] Performed By: #### C CBF, [id number] ####[facility] LABCLIA [id number] [address] [place] [address] [place] MACRO%, BF 21 % Low 64-80 [facility] Comment on above: Order Comment: Speci men Type: FLUID SPECIMENOrdering Facility: [facility] Address: [address] [place] [address] Performed By: #### C CBF, [id number] ####[facility] LABCLIA [id number] [address] [place] [address] [place] MESO %, BF 12 % High 0-2 [facility] Comment on above: Order Comment: Speci men Type: FLUID SPECIMENOrdering Facility: [facility] Address: [address] [place] [address] Performed By: #### C CBF, [id number] ####[facility] LABCLIA [id number] [address] [place] [address] [place] NEUT%, BF 26 % High 0-1 [facility] Comment on above: Order Comment: Speci men Type: FLUID SPECIMENOrdering Facility: [facility] Address: [address] [place] [address] Performed By: #### C CBF, [id number] ####[facility] LABCLIA [id number] [facility] [address] [place] [address] [place] REAC LYMPH %, BF 4 % Normal [facility] Comment on above: Order Comment: Speci men Type: FLUID SPECIMENOrdering Facility: [facility] Address: [address] [place] [address] Performed By: #### C CBF, [id number] ####[facility] LABCLIA [id number] [place] [address] [place] MEDICAL EMERon 11-11-2024 MEDICAL KRISTINA Normal [facility] MEDICAL KRISTINA Normal [facility] Magnesium SerPl-mCncon 11-11 Magnesium [Mass/Vol] 2.3 mg/dL Normal 1.7-2.3 [facility] Comment on above: Order Comment: Speci men Type: BLOOD SPECIMENOrdering Facility: [facility] Address: [address] [place] [address] Performed By: #### 2 276-4, 11696-5, 47055-9, 66536-1, 2777-1, 10936-3 ####[facility] LABCLIA [id number] [place] [address] [place] NURSING PROGon 11-11-2024 NURSING PROG Normal [facility] PLT DEP.AB, UNF. HEPARINon 0 11-11-2024 % REL HIGH DOSE HEP PORCINE 0 % Normal [facility] Comment on above: Order Comment: Speci men Type: BLOOD SPECIMENOrdering Facility: [facility] Address: [address] [place] [address] Performed By: #### S ERORE ####[facility]IES[facility]IA [id number] [place] [address] % REL LOW DOSE HEP PORCINE 0 % Normal [facility] Comment on above: Order Comment: Speci men Type: BLOOD SPECIMENOrdering Facility: [facility] Address: [address] [place] [address] Performed By: #### S ERORE ####[facility]IESCLIA [id number] [place] [address] SEROTONIN REL INTERP See Note Normal [facility] Comment on above: Order Comment: Speci men Type: BLOOD SPECIMENOrdering Facility: [facility] Address: [address] [place] [address] Result Comment: This patient's specimen demonstrates a [...] Additionalinformation regarding diagnosis of HIT is available Exercise the World.[email or web address].INTERPRETIVE INFORMATION: ABRAHAM, Unfractionated HeparinThis test was developed and its performance characteristicsdetermined by [facility]. It has not been cleared orapproved by the [place] Food and Drug Administration. This test wasperformed in a CLIA certified laboratory and is intended forclinical purposes.Performed By: [facility] [place], [place] [address]Sthpzkmelb Director: Lizandro Ordonez MD, PhDCLIA Number: [id number] Performed By: #### S ERORE ####[facility]ITAL[facility] [id number] [place] [address] ABRAHAM, UNFRACTIONATED HEPARIN Negative Normal Negative [facility] Comment on above: Order Comment: Speci men Type: BLOOD SPECIMENOrdering Facility: [facility] Address: [address] [place] [address] Performed By: #### S ERORE ####[facility] [id number] [place] [address] PROTHROMBIN GENE PCRon 11-11 PROTHROMBIN GENE MUTATION Normal [facility] Comment on above: Order Comment: Speci men Type: BLOOD SPECIMENOrdering Facility: [facility] Address: [address] [place] [address] Result Comment: Prot hrombin Gene MutationLaboratory Accession Number: [id number]:NORMALInterpretation:The DNA sample is negative for the c.*97G>A variant (legacy vtjr72796W>A) in the 3' untranslated region of the Factor II (F2) gene.This result is not associated with an increased risk of thromboembolicdisease. Thromboembolic disease is a multifactorial disorder and othercauses are not excluded by this result.Methodology:Isolated Genomic DNA from the patient's blood specimen is evaluatedfor the c*97G>A (g.21111887) variant of the F2 gene [RefSeqNM_000506.53;GRCh38/hg38] by multiplex polymerase chain reaction (PCR)followed by melting curve analysis.Limitations:This assay is designed to detect the c.*97G>A (86590M>A) variant inthe F2 gene. Uncommon variants or single nucleotide polymorphisms mayaffect binding of probes and may rarely result in false negative,false positive or indeterminate results. This assay does not detectother disease-associated rare variants in F2 or other causes ofthromboembolic disease.Disclaimer:This test was developed and its performance characteristics determinedby [facility]'s [facility] Department. Ithas not been cleared or approved by the FDA. [facility] is regulated under CLIAas certified to perform high-complexity testing. This test is used forclinical purposes. It should not be regarded as investigational or forresearch.Test performed at [facility], [address] [place] [address], [id number]. CLIA Number: [id number]:1) Inheritied Thrombophilias in . ACOG Practice Bulletin. No.197. [place] [employer]. ObseteGynecol 2018;132:e18-34.2) Lindseyt SR, Kinsey FR, Relizbeth PH, and Bernice RIVERA. A commongenetic variation in the 3'-untranslated region of the prothrombingene is associated with elevated plasma prothrombin levels and anincrease in venous thrombosis. Blood 88:3698-703, 1995.3) Rica I, Justus V, Nayan C, Emily K. Kyhjcgdkbak33699V>T: 16 new cases, association with the 38381W>G polymorphism,and literature review. J Thromb Haemost. 2009;9:1585-7.Interpretation performed at remote location (R0A1) by Fifi España MD Performed By: #### P TGEN ####[facility] [id number] [facility] [address] [place] PT panel Coag (PPP)on 2024 INR Coag (PPP) [Relative time] 2.3 {INR} High 0.9-1.3 [facility] Comment on above: Order Comment: Ezekiel ramirez Type: BLOOD SPECIMENOrdering Facility: [facility] Address: [address] [place] [address] Result Comment: Sarah min K Antagonist (VKA) Therapeutic Range: INR 2 to 3 (Target INR of 2.5)Note: For patients treated with VKA drugs, such as warfarin, the [place] [employer] 2012 Guideline recommends [...] al. Chest 2012, 141:7S-47SNishimura RA, et al. [facility] 2017, 70: 252-289 Performed By: #### P TTAC, 68132-1 ####[facility] LABCLIA [id number] [place] [address] [place] PT Coag (PPP) [Time] 23.1 s High 9.7-13.0 [facility] Comment on above: Order Comment: Ezekiel ramirez Type: BLOOD SPECIMENOrdering Facility: [facility] Address: [address] [place] [address] Performed By: #### P TTA, 57867-5 ####[facility] LABCLIA [id number] [place] [address] [place] INR Coag (PPP) [Relative time] 2.1 {INR} High 0.9-1.3 [facility] Comment on above: Order Comment: Ezekiel ramirez Type: BLOOD SPECIMENOrdering Facility: [facility] Address: [address] [place] [address] Result Comment: Sarah min K Antagonist (VKA) Therapeutic Range: INR 2 to 3 (Target INR of 2.5)Note: For patients treated with VKA drugs, such as warfarin, the [place] [employer]icians 2012 Guideline recommends [...] al. Chest 2012, 141:7S-47SNishimura RA, et al. [facility] 2017, 70: 252-289 Performed By: #### 3 4528-0 ####[facility] [id number] [place] [address] [place] PT Coag (PPP) [Time] 22.0 s High 9.7-13.0 [facility] Comment on above: Order Comment: Ezekiel ramirez Type: BLOOD SPECIMENOrdering Facility: [facility] Address: [address] [place], [place] [address] Performed By: #### 3 4528-0 ####[facility] [id number] [place] [address] [place] PTT, ANTICOAGULANT THERAPYon 11-11-2024 aPTT Coag (PPP) [Time] EXTREMELY ABNORMA L RESULT. No clot detected at 320 seconds. Refer to anticoagulation nomogram for further actions. Critically abnormal (none) [facility] Comment on above: Order Comment: Ezekiel ramirez Type: BLOOD SPECIMENOrdering Facility: [facility] Address: [address] [place] [address] Result Comment: Resu lt rechecked.Sample checked for clot. Performed By: #### P [facility], 10598-6 ####[facility] LABCLIA [id number] [place] [address] [place] Phosphate SerPl-ncon 11-11 Phosphate [Mass/Vol] 2.6 mg/dL Low 2.7-4.8 [facility] Comment on above: Order Comment: Speci men Type: BLOOD SPECIMENOrdering Facility: [facility] Address: [address] [place] [address] Performed By: #### 2 276-4, 79976-3, 63380-6, 02725-5, 2777-1, 14469-5 ####[facility] LABCLIA [id number] [place] [address] [place] Prot Fld-ncon 11-11-2024 Protein (Body fld) [Mass/Vol] 0.2 g/dL Normal See Comment [facility] Comment on above: Order Comment: Speci men Type: FLUID SPECIMENOrdering Facility: [facility] Address: [address] [place] [address] Result Comment: Sero us fluids: Effusions are [...] document C49A. PAULETTE Diaz: Clinical Laboratory Standards [place]: 2007. Performed By: #### 1 747-5, 1795-4, 97096-6, 2881-1 ####[facility] LABCLIA [id number] [facility] AVENUEMONR[facility]PITALK [address] [place] [address] [place] Renal function 2000 panelon 11-11-2024 Albumin [Mass/Vol] 2.4 g/dL Low 3.9-4.9 [facility] Comment on above: Order Comment: Speci men Type: BLOOD SPECIMENOrdering Facility: [facility] Address: [address] [place], [place] [address] Performed By: #### 2 4362-6, 7 ####[facility] LABCLIA [id number] [facility] [address] [place] [address] [place] Anion gap [Moles/Vol] 10 mmol/L Normal 8-15 [facility] Comment on above: Order Comment: Speci men Type: BLOOD SPECIMENOrdering Facility: [facility] Address: [address] [place], [place] [address] Performed By: #### 2 436-6, 7 ####[facility] LABCLIA [id number] [facility] [address] [place] [address] [place] Calcium [Mass/Vol] 9.3 mg/dL Normal 8.5-10.2 [facility] Comment on above: Order Comment: Speci men Type: BLOOD SPECIMENOrdering Facility: [facility] Address: [address] [place] [address] Performed By: #### 2 4362-6, 7 ####[facility] LABCLIA [id number] [facility]LID AVENUEMONROV[facility] COMM[facility]OS[facility]IT[facility] [address] [place] [address] [place] Chloride [Moles/Vol] 100 mmol/L Normal 98-107 [facility] Comment on above: Order Comment: Speci men Type: BLOOD SPECIMENOrdering Facility: [facility] Address: [address] [place] [address] Performed By: #### 2 4362-6, 4541-7 ####[facility] LABCLIA [id number] [facility] [place] [id number] [place] CO2 [Moles/Vol] 13 mmol/L Low 22-30 [facility] Comment on above: Order Comment: Meggani men Type: BLOOD SPECIMENOrdering Facility: [facility] Address: [address] [place] [address] Performed By: #### 2 4362-6, 4541-7 ####[facility] LABCLIA [id number] [place] [id number] [place] Creatinine [Mass/Vol] 1.26 mg/dL High 0.73-1.22 [facility] Comment on above: Order Comment: Meggani men Type: BLOOD SPECIMENOrdering Facility: [facility] Address: [address] [place] [address] Performed By: #### 2 4362-6, 7 ####[facility]CL[facility] [id number] [place] [address] [place] Creatinine and Glomerular filtration rate.predicted panel (S/P/Bld) 66 mL/min/1.73m??? Normal >=60 [facility] Comment on above: Order Comment: Ezekiel ramirez Type: BLOOD SPECIMENOrdering Facility: [facility] Address: [address] [place] [address] Result Comment: Patric mated Glomerular Filtration Rate [...] actual GFR. Performed By: #### 2 4362-6, 7 ####[facility] LABCLIA [id number] [place] [id number] [place] Glucose [Mass/Vol] 255 mg/dL High 74-99 [facility] Comment on above: Order Comment: Meggani men Type: BLOOD SPECIMENOrdering Facility: [facility] Address: [address] [place] [id number] Result Comment: The [place] Diabetes Association (ADA) provides guidance for cutoff [...] Standards of Medical Care in Diabetes 2016, [place] [employer] Association. Diabetes Care. 2016.39(Suppl 1). Performed By: #### 2 4362-6, 454-7 ####[facility] LABIA [id number] [place] [address] [place] Phosphate [Mass/Vol] 2.5 mg/dL Low 2.7-4.8 [facility] Comment on above: Order Comment: Speci men Type: BLOOD SPECIMENOrdering Facility: [facility] Address: [address] [place] [id number] Performed By: #### 2 4362-6, 4541-7 ####[facility] LABIA [id number] [place] [id number] [place] Potassium [Moles/Vol] 4.4 mmol/L Normal 3.7-5.1 [facility] Comment on above: Order Comment: Speci men Type: BLOOD SPECIMENOrdering Facility: [facility] Address: [address] [place] [address] Performed By: #### 2 4362-6, 4541-7 ####[facility] LABIA [id number] [place] [id number] [place] Sodium [Moles/Vol] 123 mmol/L Low 136-144 [facility] Comment on above: Order Comment: Speci men Type: BLOOD SPECIMENOrdering Facility: [facility] Address: [address] [place] [address] Performed By: #### 2 4362-6, 4542-7 ####[facility] LABIA [id number] [place] [address] [place] Urea nitrogen [Mass/Vol] 21 mg/dL Normal 9-24 [facility] Comment on above: Order Comment: Speci men Type: BLOOD SPECIMENOrdering Facility: [facility] Address: [address] [place] [address] Performed By: #### 2 4362-6, 4542-7 ####[facility] LABIA [id number] [place] [address] [place] Retics #on 11-11-2024 Reticulocytes (Bld) [#/Vol] 0.47473 10*3/uL High 0.018-0.100 [facility] Comment on above: Order Comment: Speci men Type: BLOOD SPECIMENOrdering Facility: [facility] Address: [address] [place] [address] Performed By: #### I PFR, 03154-3, 45160-6 ####[facility] LABIA [id number] [place] [address] [place] Reticulocytes (Bld) [#/Vol]o n 11-11-2024 Reticulocytes/100 RBC (Bld) 4.1 % High 0.4-2.0 [facility] Comment on above: Order Comment: Speci men Type: BLOOD SPECIMENOrdering Facility: [facility] Address: [address] [place] [address] Performed By: #### I PFR, 24532-3, 05852-9 ####[facility] LABIA [id number] [place] [address] [place] SEPSIS LACTATEon 11-11-2024 Lactate [Moles/Vol] 3.4 mmol/L High <=2.0 [facility] Comment on above: Order Comment: Speci men Type: BLOOD SPECIMENOrdering Facility: [facility] Address: [address] [place] [address] Performed By: #### S LACT ####[facility] LABCLIA [id number] [place] [address] [place] Lactate [Moles/Vol] 3.6 mmol/L High <=2.0 [facility] Comment on above: Order Comment: Speci men Type: BLOOD SPECIMENOrdering Facility: [facility] Address: [address] [place] [address] Performed By: #### S LACT ####[facility] [id number] [place] [address] [place] Screen dRVVTon 11-11-2024 dRVVT Coag (PPP) [Time] 42.6 s Normal 32.0-45.7 C [facility] Comment on above: Order Comment: Speci men Type: BLOOD SPECIMENOrdering Facility: [facility] Address: [address] [place] [address] Performed By: #### L [id number], HCOAG, 6303-2, 23727-3, 34920-1 ####[facility]CL[facility] [id number] [place] [address] [place] US ABD LIVER VASCULARon 04- US ABD LIVER VASCULAR Normal [facility] US DOPPLER COMPLETEon 2024 US DOPPLER COMPLETE Normal [facility] XR ABDOMEN 1V SUPINEon 11-11 XR ABDOMEN 1V SUPINE Normal [facility] XR CHEST 1V FRONTAL PORTon 0 11-11-2024 XR CHEST 1V FRONTAL PORT Normal [facility] XR CHEST 1V FRONTAL PORT Normal [facility] aPTT PPPon 11-11-2024 aPTT Coag (PPP) [Time] 41.7 s High 23.0-32.4 Cl [facility] Comment on above: Order Comment: Speci men Type: BLOOD SPECIMENOrdering Facility: [facility] Address: [address] [place] [address] Performed By: #### 3 [id number], 05815-6 ####[facility] LABCLIA [id number] [place] [id number] [place] dRVVT Coag (PPP) [Time]on dRVVT factor substitution immediately after 1:2 addition of normal plasma Coag (PPP) [Time] 35.4 seconds Normal 32.0-45.7 [facility] Comment on above: Order Comment: Speci men Type: BLOOD SPECIMENOrdering Facility: [facility] Address: [address] [place] [address] Performed By: #### L [id number], HCOAG, 6303-2, 23900-0, 03803-8 ####[facility] LABIA [id number] [place] [address] [place] dRVVT/dRVVT.excess phospholipid Coag (PPP) [Ratio] 0.91 Normal <1.32 [facility] Comment on above: Order Comment: Speci men Type: BLOOD SPECIMENOrdering Facility: [facility] Address: [address] [place] [address] Performed By: #### L [id number], HCOAG, 6303-2, 12761-1, 71688-0 ####[facility] LABIA [id number] [address] [place] ALP [Catalytic activity/Vol] Ordered By: Kathie Powers on 11-10-2024 Serum or plasma alkaline phosphatase measurement 310 U/L High 40-129 [facility] ALT [Catalytic activity/Vol] Ordered By: Kathie Powers on 11-10-2024 Serum or plasma alanine aminotransferase (ALT) measurement 36 U/L <47 [facility] Absolute lymphocyte countOrd ered By: Kathie Powers on 11-10-2024 Lymphocytes Auto (Unsp spec) [#/Vol] 1.30 10*3/uL 0.83-4.51 [facility] Absolute neutrophil countOrd ered By: Kathie Powers on 11-10-2024 Absolute neutrophil count 16.2 X10^3/uL High 2.0-7.7 [facility] Albumin [Mass/Vol]Ordered By : Kathie Powers on 11-10-2024 Serum or plasma albumin measurement (mass/volume) 2.3 g/dL Low 3.5-5.0 [facility] Albumin/Globulin [Mass ratio ]Ordered By: Kathie Powers on 11-10-2024 Serum or plasma albumin/globulin mass ratio 0.7 RATIO Low 0.9-2.4 [facility] Anion gap [Moles/Vol]Ordered By: Kathie Powers on 11-10-2024 Anion gap in Serum or Plasma 11 5-15 [facility] Anion gap in Serum or Plasma Ordered By: Kathie Powers on 11-10-2024 Anion gap [Moles/Vol] 11 mmol/L 5-15 [facility] Automated lymphocyte count a s percentage of total leukocytesOrdered By: Kathie Powers on 11-10-2024 Lymphocytes/100 WBC Auto (Unsp spec) 6.6 % Low 19-41 [facility] BUN/creatinine ratioOrdered By: Kathie Powers on 11-10-2024 Urea nitrogen/Creatinine [Mass ratio] 16.6 mg/mg 10-20 [facility] BUN/creatinine ratio 16.6 RATIO 10-20 [facility] Bacteria LM.HPF (Urine sed) [#/Area]Ordered By: Kathie Powers on 11-10-2024 Urine sediment bacteria count by microscopy (number/high power field) 2+ /hpf None Seen [facility] Basophil percentageOrdered B y: Kathie Powers on 11-10-2024 Basophils/100 WBC (Bld) 0.5 % 0-1 [facility] Basophil percentage 0.5 % 0-1 [facility] Bilirubin Test strip Ql (U)O rdered By: Kathie Powers on 11-10-2024 Bilirubin Ql (U) Negative Negative [facility] Urine total bilirubin detection by test strip Negative Negative [facility] Bilirubin, totalOrdered By: Kathie Powers on 11-10-2024 Bilirubin [Mass/Vol] 2.09 mg/dL High 0.00-1.30 [facility] Bilirubin, total 2.09 mg/dL High 0.00-1.30 [facility] Calcium [Mass/Vol]Ordered By : Kathie Powers on 11-10-2024 Serum or plasma calcium measurement (mass/volume) 9.2 mg/dL 7.6-11.0 [facility] Carbon dioxide, total [Moles /volume] in Central venous bloodOrdered By: Kathie Powers on 11-10-2024 CO2 [Moles/Vol] 13.3 mmol/L Low 21.0-32.0 [facility] Carbon dioxide, total [Moles/volume] in Central venous blood 13.3 mmol/L Low 21.0-32.0 [facility] Chloride assayOrdered By: Paulette Powers on 11-10-2024 Chloride [Moles/Vol] 99 mmol/L 98-108 [facility] Chloride assay 99 mmol/L 98-108 [facility] Clarity (U)Ordered By: Kathie Powers on 11-10-2024 Urine clarity Turbid Clear [facility] Color (U)Ordered By: Kathei bhatt on 11-10-2024 Urine color determination Brown Yellow [facility] Creatinine [Mass/Vol]Ordered By: Kathie Powers on 11-10-2024 Serum creatinine measurement (mass/volume) 1.13 mg/dL 0.70-1.20 [facility] Eosinophil percentageOrdered By: Kathie Powers on 11-10-2024 Eosinophils/100 WBC (Bld) 1.9 % 0-5 [facility] Eosinophil percentage 1.9 % 0-5 [facility] Erythrocyte distribution wid th (RBC) [Ratio]Ordered By: Kathie Powers on 11-10-2024 Erythrocyte distribution width ratio 18.1 % High 11.6-14.6 [facility] Erythrocyte distribution width standard deviation 62.1 fl High 35.1-43.9 [facility] Erythrocyte distribution wid th ratioOrdered By: Kathie Powers on 11-10-2024 Erythrocyte distribution width (RBC) [Ratio] 18.1 % High 11.6-14.6 [facility] Erythrocyte distribution wid th standard deviationOrdered By: Kathie Powers on 11-10-2024 Erythrocyte distribution width (RBC) [Ratio] 62.1 fl High 35.1-43.9 [facility] Estimation of creatinine gregorio aranceOrdered By: Kathie Powers on 11-10-2024 Estimation of creatinine clearance 88.23 ml/min 50-250 [facility] GFR/1.73 sq M.predicted niki g non-blacks MDRD (S/P/Bld) [Vol rate/Area]Ordered By: Kathie Powers on 11-10-2024 Glomerular filtration rate (GFR) estimation/1.73 sq m using serum, plasma, or whole b 75 >60 [facility] Glomerular filtration rate ( GFR) estimation/1.73 sq m using serum, plasma, or whole bOrdered By: Kathie Powers on 11-10-2024 GFR/1.73 sq M.predicted among non-blacks MDRD (S/P/Bld) [Vol rate/Area] 75 mL/min/{1.73_m2} >60 [facility] Glucose Ql (U)Ordered By: Paulette Powers on 11-10-2024 Urine glucose detection Normal mg/dl Normal [facility] Glucose [Mass/Vol]Ordered By : Kathie Powers on 11-10-2024 Serum glucose measurement (mass/volume) 298 mg/dL High 70-99 [facility] Glucose measurement at bedsi deOrdered By: Kathie Powers on 11-10-2024 Glucose [Mass/Vol] 265 mg/dL High 74-106 [facility] Glucose measurement at bedside 265 mg/dL High 74-106 [facility] Hematocrit Auto (Bld) [Volum e fraction]Ordered By: Kathie Powers on 11-10-2024 Hematocrit (Bld) [Volume fraction] 32.9 % Low 40-54 [facility] Automated blood hematocrit (percentage) 32.9 % Low 40-54 [facility] Hemoglobin measurementOrdere d By: Kathie Powers on 11-10-2024 Hemoglobin (Bld) [Mass/Vol] 11.3 g/dL Low 13.0-16.5 [facility] Hemoglobin measurement 11.3 g/dL Low 13.0-16.5 [facility] Immature granulocytes/100 WB C Auto (Bld)Ordered By: Kathie Powers on 11-10-2024 Immature granulocytes/100 WBC (Bld) 1.100 % High 0.0-0.9 [facility] Automated immature granulocyte percentage 1.100 % High 0.0-0.9 [facility] International normalized rat io (INR) calculationOrdered By: Kathie Powers on 11-10-2024 International normalized ratio (INR) calculation 3.1 [facility] Ketones Test strip Ql (U)Ord ered By: Kathie Powers on 11-10-2024 Ketones Ql (U) 5 mg/dl High Negative [facility] Urine ketones detection by test strip 5 mg/dl High Negative [facility] Leukocyte esterase Test stri p Ql (U)Ordered By: Kathie Powers on 11-10-2024 Urine leukocyte esterase detection by dipstick 500 /ul High Negative [facility] Lymphocytes Auto (Unsp spec) [#/Vol]Ordered By: Kathie Powers on 11-10-2024 Absolute lymphocyte count 1.30 X10^3/uL 0.83-4.51 [facility] Lymphocytes/100 WBC Auto (Un sp spec)Ordered By: Kathie Powers on 11-10-2024 Automated lymphocyte count as percentage of total leukocytes 6.6 % Low 19-41 [facility] MCV (RBC) [Entitic vol]Order ed By: Kathie Powers on 11-10-2024 MCV (mean corpuscular volume) determination 92.7 fL 80-94 [facility] MCV (mean corpuscular volume ) determinationOrdered By: Kathie Powers on 11-10-2024 MCV (RBC) [Entitic vol] 92.7 fL 80-94 [facility] Mean corpuscular hemoglobin (MCH) determinationOrdered By: Kathie Powers on 11-10-2024 MCH (RBC) [Entitic mass] 31.8 pg 27.0-32.0 [facility] Mean corpuscular hemoglobin (MCH) determination 31.8 pg 27.0-32.0 [facility] Mean corpuscular hemoglobin concentration (MCHC) determinationOrdered By: Kathie Powers on 11-10-2024 Mean corpuscular hemoglobin concentration (MCHC) determination 34.3 g/dL 32-36 [facility] Mean platelet volume determi nationOrdered By: Kathie Powers on 11-10-2024 Mean platelet volume determination 12.2 fl High 6.2-12.0 [facility] Microscopic analysis of urin e for red blood cells (RBC)Ordered By: Kathie Powers on 11-10-2024 Microscopic analysis of urine for red blood cells (RBC) > 100 SEEN /hpf 0-5 [facility] Monocyte percentageOrdered B y: Kathie Powers on 11-10-2024 Monocytes/100 WBC (Bld) 6.9 % 0-10 [facility] 6.9 % 0-[facility]uc[facility] Ql (Urine sed)Order ed By: Kathie Powers on 11-10-2024 Mucus Ql (Urine sed) 0 SEEN /hpf [facility] Neutrophil percentageOrdered By: Kathie Powers on 11-10-2024 Neutrophils/100 WBC (Bld) 83.0 % High 47-70 [facility] Neutrophil percentage 83.0 % High 47-70 [facility] Nitrite Test strip Ql (U)Ord ered By: Kathie Powers on 11-10-2024 Nitrite Ql (U) Positive High Negative [facility] Urine nitrite test by dipstick Positive High Negative [facility] No Panel InformationOrdered By: Kathie Powers on 11-10-2024 58 U/L High <38 [facility] Nucleated red blood cell per centageOrdered By: Kathie Powers on 11-10-2024 Nucleated red blood cell percentage 0 % 0-5 [facility] Platelet countOrdered By: Paulette Powers on 11-10-2024 Platelets (Bld) [#/Vol] 58 10*3/uL Low 150-450 [facility] Platelet count 58 K/mm3 Low 150-450 [facility] Potassium (Unsp spec) [Mass/ Vol]Ordered By: Kathie Powers on 11-10-2024 Potassium measurement (mass/volume) 3.6 mmol/L 3.3-5.1 [facility] Potassium measurement (mass/ volume)Ordered By: Kathie Powers on 11-10-2024 Potassium (Unsp spec) [Mass/Vol] 3.6 mmol/L 3.3-5.1 [facility] Protein Test strip Ql (U)Ord ered By: Kathie Powers on 11-10-2024 Protein Ql (U) 500 mg/dl High Negative [facility] Urine protein assay by test strip, semi-quantitative 500 mg/dl High Negative [facility] Prothrombin timeOrdered By: Kathie Powers on 11-10-2024 PT Coag (PPP) [Time] 32.3 s High 11.7-14.9 [facility] Prothrombin time 32.3 SECONDS High 11.7-14.9 [facility] RBC Auto (Bld) [#/Vol]Ordere d By: Kathie Powers on 11-10-2024 RBC (Bld) [#/Vol] 3.55 10*6/uL Low 4.6-6.2 [facility] Automated blood erythrocyte count 3.55 M/mm3 Low 4.6-6.2 [facility] Serum creatinine measurement (mass/volume)Ordered By: Kathie Powers on 11-10-2024 Creatinine [Mass/Vol] 1.13 mg/dL 0.70-1.20 [facility] Serum globulin measurementOr dered By: Kathie Powers on 11-10-2024 Globulin (S) [Mass/Vol] 3.4 g/dL 2.2-4.2 [facility] Serum globulin measurement 3.4 g/dL 2.2-4.2 [facility] Serum glucose measurement (m ass/volume)Ordered By: Kathie Powers on 11-10-2024 Glucose [Mass/Vol] 298 mg/dL High 70-99 [facility] Serum or plasma alanine thomas otransferase (ALT) measurementOrdered By: Kathie Powers on 11-10-2024 ALT [Catalytic activity/Vol] 36 U/L <47 [facility] Serum or plasma albumin roosevelt urement (mass/volume)Ordered By: Kathie Powers on 11-10-2024 Albumin [Mass/Vol] 2.3 g/dL Low 3.5-5.0 [facility] Serum or plasma albumin/glob ulin mass ratioOrdered By: Kathie Powers on 11-10-2024 Albumin/Globulin [Mass ratio] 0.7 {ratio} Low 0.9-2.4 [facility] Serum or plasma alkaline kendrick sphatase measurementOrdered By: Kathie Powers on 11-10-2024 ALP [Catalytic activity/Vol] 310 U/L High 40-129 [facility] Serum or plasma calcium roosevelt urement (mass/volume)Ordered By: Kathie Powers on 11-10-2024 Calcium [Mass/Vol] 9.2 mg/dL 7.6-11.0 [facility] Serum or plasma urea nitroge n measurement (mass/volume)Ordered By: Kathie Powers on 11-10-2024 Urea nitrogen [Mass/Vol] 19 mg/dL - [facility] Sodium levelOrdered By: Javed Powers on 11-10-2024 Sodium [Moles/Vol] 123 mmol/L Low 133-145 [facility] Sodium level 123 mmol/L Low 133-145 [facility] Specific gravity (U) [Rel de nsity]Ordered By: Kathie Powers on 11-10-2024 Urine specific gravity measurement 1.015 1.002-1.030 [facility] Squamous epithelial cells de tection in urine sediment by light microscopyOrdered By: Kathie Powers on 11-10-2024 Epithelial cells.squamous LM Ql (Urine sed) 0 SEEN /hpf 0-5 [facility] Squamous epithelial cells detection in urine sediment by light microscopy 0 SEEN /hpf [facility] Total proteinOrdered By: Tyree Powers on 11-10-2024 Protein [Mass/Vol] 5.7 g/dL Low 5.9-8.4 [facility] Total protein 5.7 g/dL Low 5.9-8.4 [facility] Urea nitrogen [Mass/Vol]Orde red By: Kathie Powers on 11-10-2024 Serum or plasma urea nitrogen measurement (mass/volume) 19 mg/dL 11-20 [facility] Urine blood detectionOrdered By: Kathie Powers on 11-10-2024 Urine blood detection 250 /ul High Negative [facility] Urine clarityOrdered By: Tyree Powers on 11-10-2024 Clarity (U) Turbid Clear [facility] Urine color determinationOrd ered By: Kathie Powers on 11-10-2024 Color (U) Brown Yellow [facility] Urine glucose detectionOrder ed By: Kathie Powers on 11-10-2024 Glucose Ql (U) Normal mg/dl Normal [facility] Urine leukocyte esterase det ection by dipstickOrdered By: Kathie Powers on 11-10-2024 Leukocyte esterase Test strip Ql (U) 500 /ul High Negative [facility] Urine pHOrdered By: Kathie garcias on 11-10-2024 pH (U) 6.5 [pH] 5.0 - 8.0 [facility] Urine sediment bacteria coun t by microscopy (number/high power field)Ordered By: Kathie Powers on 11-10-2024 Bacteria LM.HPF (Urine sed) [#/Area] 2 /[HPF] None Seen [facility] Urine specific gravity measu rementOrdered By: Kathie Powers on 11-10-2024 Specific gravity (U) [Rel density] 1.015 1.002-1.030 [facility] Urine urobilinogen measureme ntOrdered By: Kathie Powers on 11-10-2024 Urobilinogen Ql (U) 1 mg/dl High Normal [facility] Urobilinogen Ql (U)Ordered B y: Kathie Powers on 11-10-2024 Urine urobilinogen measurement 1 mg/dl High Normal [facility] White blood cell (WBC) count Ordered By: Kathie Powers on 11-10-2024 WBC (Bld) [#/Vol] 19.6 10*3/uL High 4.4-11.0 [facility] White blood cell (WBC) count 19.6 K/mm3 High 4.4-11.0 [facility] White blood cell countOrdere d By: Kathie Powers on 11-10-2024 White blood cell count 5-10 SEEN /hpf 0-5 [facility] White blood cell count 5-10 SEEN /hpf 0-5 [facility] pH (U)Ordered By: Kathie aguilar on 11-10-2024 Urine pH 6.5 5.0 - 8.0 [facility] Blood manual differential co mment interpretation (narrative result)Ordered By: Kathie Powers on 11-09-2024 Manual differential comment Marco Antonio (Bld) [Interp] SCANNED [facility] Lactic acid measurementOrder ed By: Kathie Powers on 11-09-2024 Lactic acid measurement 2.4 mmol/L High 0.0-2.0 [facility] Manual differential comment Marco Antonio (Bld) [Interp]Ordered By: Kathie Powers on 11-09-2024 Blood manual differential comment interpretation (narrative result) SCANNED [facility] Pathologist review Marco Antonio (Unsp spec) [Interp]Ordered By: Kathie Powers on 11-09-2024 Review by pathologist N/A [facility] Platelet estimateOrdered By: Kathie Powers on 11-09-2024 Platelets LM Ql (Bld) MKD DEC ADEQ [facility] Platelets LM Ql (Bld)Ordered By: Kathie Powers on 11-09-2024 Platelet estimate MKD DEC ADEQ [facility] Review by pathologistOrdered By: Kathie Powers on 11-09-2024 Pathologist review Marco Antonio (Unsp spec) [Interp] N/A [facility] Venous blood ammonia measure mentOrdered By: Kathie Powers on 11-09-2024 Ammonia (P) [Moles/Vol] 104.0 umol/L High 16-60 [facility] Venous blood ammonia measurement 104.0 umol/L High 16-60 [facility] Lipase measurementOrdered By : Kathie Powers on 11-08-2024 Lipase measurement 94 U/L High 13-75 [facility] Magnesium (Unsp spec) [Mass/ Vol]Ordered By: Kathie Powers on 11-08-2024 Magnesium measurement (mass/volume) 2.4 mg/dL High 1.5-2.2 [facility] Magnesium measurement (mass/ volume)Ordered By: Kathie Powers on 11-08-2024 Magnesium (Unsp spec) [Mass/Vol] 2.4 mg/dL High 1.5-2.2 [facility] Serum phosphorus measurement Ordered By: Kathie Powers on 11-08-2024 Serum phosphorus measurement 1.6 mg/dL Low 2.7-4.5 [facility] Blood polychromasia detectio n by light microscopyOrdered By: Hill Acuña on 11-07-2024 Polychromasia LM Ql (Bld) 1+ [facility] Blood polychromasia detection by light microscopy 1+ [facility] Ovalocyte detectionOrdered B y: Hill Acuña on 11-07-2024 Ovalocytes LM Ql (Bld) 1+ [facility] Band form neutrophils/100 WB C (Bld)Ordered By: Hill Acuña on 11-03-2024 Blood band neutrophil count as percentage of total leukocytes 6 % High 0-5 [facility] Blood band neutrophil count as percentage of total leukocytesOrdered By: Hill Acuña on 11-03-2024 Band form neutrophils/100 WBC (Bld) 6 % High 0-5 [facility] Blood eosinophils/100 leukoc ytesOrdered By: Hill Acuña on 11-03-2024 Eosinophils/100 WBC (Bld) 1 % 0-5 [facility] Blood lymphocytes/100 leukoc ytesOrdered By: Hill Acuña on 11-03-2024 Lymphocytes/100 WBC (Bld) 2 % Low 19-41 [facility] Blood lymphocytes/100 leukocytes 2 % 0-10 [facility] Blood metamyelocytes/100 bri kocytesOrdered By: Hill Acuña on 11-03-2024 Metamyelocytes/100 WBC (Bld) 1 % 0-1 [facility] Blood metamyelocytes/100 leukocytes 1 % 0-5 [facility] Blood monocytes/100 leukocyt esOrdered By: Hill Acuña on 11-03-2024 Monocytes/100 WBC (Bld) 2 % 0-10 [facility] Blood segmented neutrophils/ 100 leukocytesOrdered By: Hill Acuña on 11-03-2024 Segmented neutrophils/100 WBC (Bld) 85 % High 47-70 [facility] Cells counted Molgen (Bld/Ti ss) [#]Ordered By: Hill Acuña on 11-03-2024 Total cell count [address] [facility] Segmented neutrophils/100 WB C (Bld)Ordered By: Hill Acuña on 11-03-2024 Blood segmented neutrophils/100 leukocytes 85 % High 47-70 [facility] Total cell countOrdered By: Hill Acuña on 11-03-2024 Cells counted Molgen (Bld/Tiss) [#] [address] [facility] Erythrocyte morphology asses smentOrdered By: Hill Acuña on 11-02-2024 RBC morphology finding Nom (Bld) NORM C+C NORMAL NORM C&C [facility] RBC morphology finding Nom ( Bld)Ordered By: Hill Acuña on 11-02-2024 Erythrocyte morphology assessment NORM C+C NORMAL NORM C&C [facility] Trough vancomycin levelOrder ed By: Buster Fuchs on 11-01-2024 Vancomycin trough [Mass/Vol] 17.7 ug/mL High 5.0-15.0 [facility] Vancomycin trough [Mass/Vol] Ordered By: Buster Fuchs on 11-01-2024 Trough vancomycin level 17.7 ug/mL High 5.0-15.0 [facility] Activated partial thrombopla stin time (aPTT) in platelet poor plasma by coagulation aOrdered By: Buster Fuchs on 10-31-2024 aPTT Coag (PPP) [Time] 42.7 s High 24.1-36.2 [facility] aPTT Coag (PPP) [Time]Ordere d By: Buster Fuchs on 10-31-2024 Activated partial thromboplastin time (aPTT) in platelet poor plasma by coagulation a 42.7 Seconds High 24.1-36.2 [facility] C. difficile Ql (Stl)Ordered By: Hill Wright on 10-30-2024 Stool Clostridium difficile detection Toxigenic C. difficile Abnormal [facility] Clostridium difficile detect ion by polymerase chain reactionOrdered By: Hill Wright on 10-30-2024 C. difficile DNA ANANTH+probe Ql (Unsp spec) [facility] Stool Clostridium difficile detectionOrdered By: Hill Wright on 10-30-2024 C. difficile Ql (Stl) Toxigenic C. difficile Abnormal [facility] Stool lactoferrin detection by immunoassayOrdered By: Hill Wright on 10-30-2024 Lactoferrin IA Ql (Stl) [facility] Arterial patency Wrist arter y --pre arterial punctureOrdered By: Buster Fuchs on 10-29-2024 Assessment of wrist artery patency prior to arterial puncture Positive [facility] Assessment of wrist artery p atency prior to arterial punctureOrdered By: Buster Fuchs on 10-29-2024 Arterial patency Wrist artery --pre arterial puncture Positive [facility] Base excess Calc (BldV) [Mol es/Vol]Ordered By: Buster Fuchs on 10-29-2024 Blood base excess determination -10 mmol/L [facility]2-2 [facility] Blood base excess determinat ionOrdered By: Buster Fuchs on 10-29-2024 Base excess Calc (BldV) [Moles/Vol] -10 mmol/L [facility]2-2 [facility] Blood bicarbonate measuremen tOrdered By: Buster Fuchs on 10-29-2024 HCO3 (Bld) [Moles/Vol] 15.2 mmol/L Low - [facility] Blood bicarbonate measurement 15.2 mmol/L Low - [facility] Blood cultureOrdered By: Hugo Wright on 10-29-2024 Bacteria identified Cx Nom (Bld) No growth in [address] [facility] Blood culture No growth in 5 days. [facility] Calculated very low density lipoprotein (VLDL) cholesterol measurementOrdered By: Hill Wright on 10-29-2024 Calculated very low density lipoprotein (VLDL) cholesterol measurement 17 mg/dL 5-40 [facility] Calculated very low density lipoprotein (VLDL) cholesterol measurement 17 mg/dL 5-40 [facility] Cholesterol [Mass/Vol]Ordere d By: Hill Wright on 10-29-2024 Serum or plasma cholesterol measurement (mass/volume) 132 mg/dL <201 [facility] Cholesterol in HDL [Mass/Vol ]Ordered By: Hill Wright on 10-29-2024 Serum or plasma cholesterol in HDL measurement (mass/volume) 33 mg/dL Low >40 [facility] Determination of fraction of inspired oxygenOrdered By: Buster Fuchs on 10-29-2024 Determination of fraction of inspired oxygen 21.0 [facility] Electrocardiogram reportOrde red By: Jeovanny Ramos on 10-29-[address] [facility] Other Phone: LDL calc ser/plasOrdered By: Hill Wright on 10-29-2024 Cholesterol in LDL [Mass/Vol] 83 mg/dL [facility] Measurement, pHOrdered By: Stacy Fuchs on 10-29-2024 pH (Unsp spec) 7.39 [pH] 7.35-7.45 [facility] No Panel InformationOrdered By: Buster Fuchs on 10-29-[address] [facility] L Radial [facility] Not entered [facility] Room Air [facility] No Panel InformationOrdered By: Hill Wright on 10-29-2024 10.20 ug/dL 6.02-18.40 [facility] Osmolality, serumOrdered By: Hill Wright on 10-29-2024 Osmolality, serum 292 mOsm/KG 275-295 [facility] Oxygen saturation measuremen tOrdered By: Buster Fuchs on 10-29-2024 Oxygen saturation measurement 93 % Low 95-99 [facility] Partial pressure of carbon d ioxide measurementOrdered By: Buster Fuchs on 10-29-2024 Partial pressure of carbon dioxide measurement 25.1 mmHg Low 35-45 [facility] Partial pressure of oxygen m easurementOrdered By: Buster Fuchs on 10-29-2024 Partial pressure of oxygen measurement 67 mmHG Low 75-100 [facility] Screening total cholesterol/ high density lipoprotein (HDL) cholesterol ratioOrdered By: Hill Wright on 10-29-2024 Screening total cholesterol/high density lipoprotein (HDL) cholesterol ratio 4.04 [facility] Serum or plasma cholesterol in HDL measurement (mass/volume)Ordered By: Hill Wright on 10-29-2024 Cholesterol in HDL [Mass/Vol] 33 mg/dL Low >40 [facility] Serum or plasma cholesterol measurement (mass/volume)Ordered By: Hill Wright on 10-29-2024 Cholesterol [Mass/Vol] 132 mg/dL <201 [facility] Total carbon dioxide measure mentOrdered By: Buster Fuchs on 10-29-2024 CO2 [Moles/Vol] 16 mmol/L [facility] Total carbon dioxide measurement 16 mmol/L [facility] Triglycerides measurementOrd ered By: Hill Wright on 10-29-2024 Triglycerides measurement 83 mg/dL [facility] Urine cultureOrdered By: Viraj Dunn on 10-29-2024 Bacteria identified Cx Nom (U) Culture exhibits no growth. [facility] Urine culture Culture exhibits no growth. [facility] pH (Unsp spec)Ordered By: Marianna Fuchs on 10-29-2024 Measurement, pH 7.39 7.35-7.45 [facility] Absolute neutrophil countOrd ered By: Alber Dunn on 10-28-2024 Neutrophils (Bld) [#/Vol] 19.0 10*3/uL High 2.0-7.7 [facility] Amorphous sediment LM Ql (Ur ine sed)Ordered By: Alber Dunn on 10-28-2024 Amorphous sediment detection in urine sediment by light microscopy 1+ URATE [facility] Amorphous sediment detection in urine sediment by light microscopyOrdered By: Alber Dunn on 10-28-2024 Amorphous sediment LM Ql (Urine sed) 1+ URATE [facility] Anion gap in Serum or Plasma Ordered By: Alber Dunn on 10-28-2024 Anion gap [Moles/Vol] 17 mmol/L High 5-15 [facility] BUN/creatinine ratioOrdered By: Alber Dunn on 10-28-2024 Urea nitrogen/Creatinine [Mass ratio] 18.8 mg/mg 10-20 [facility] Basophil percentageOrdered B y: Alber Dunn on 10-28-2024 Basophils/100 WBC (Bld) 0.2 % 0-1 [facility] Bilirubin Test strip Ql (U)O rdered By: Alber Dunn on 10-28-2024 Bilirubin Ql (U) 1 mg/dL High Negative [facility] Comment on above: COLOR OF URINE MAY A FFECT DIPSTICK RESULTS. Bilirubin, totalOrdered By: Alber Dunn on 10-28-2024 Bilirubin [Mass/Vol] 1.86 mg/dL High 0.00-1.30 [facility] Carbon dioxide, total [Moles /volume] in Central venous bloodOrdered By: Alber Dunn on 10-28-2024 CO2 [Moles/Vol] 12.4 mmol/L Low 21.0-32.0 [facility] Chloride assayOrdered By: Hernesto Dunn on 10-28-2024 Chloride [Moles/Vol] 98 mmol/L 98-108 [facility] Eosinophil percentageOrdered By: Alber Dunn on 10-28-2024 Eosinophils/100 WBC (Bld) 1.4 % 0-5 [facility] Epithelial cells.squamous LM Ql (Urine sed)Ordered By: Alber Dunn on 10-28-2024 Epithelial cells.squamous LM.HPF (Urine sed) [#/Area] 5 /[HPF] 0-5 [facility] Erythrocyte distribution wid th ratioOrdered By: Alber Dunn on 10-28-2024 Erythrocyte distribution width (RBC) [Ratio] 19.1 % High 11.6-14.6 [facility] Erythrocyte distribution wid th standard deviationOrdered By: Alber Dunn on 10-28-2024 Erythrocyte distribution width (RBC) [Entitic vol] 62.7 fL High 35.1-43.9 [facility] GFR/1.73 sq M.predicted niki g non-blacks MDRD (S/P/Bld) [Vol rate/Area]Ordered By: Alber Dunn on 10-28-2024 Estimated GFR (MDRD) Non-Af Amer [address] >[address] [facility] Comment on above: mL/min/1.73m2 CKD-EP I Creatinine Equation (2020) Glucose Ql (U)Ordered By: Hernesto Dunn on 10-28-2024 Glucose (U) [Mass/Vol] 50 mg/dL High Normal [facility] HbA1c (Bld) [Mass fraction]O rdered By: Hill Wright on 10-28-2024 Hemoglobin A1c percentage 6.7 % >5.7 [facility] Hematocrit Auto (Bld) [Volum e fraction]Ordered By: Alber Dunn on 10-28-2024 Hematocrit (Bld) [Volume fraction] 37.3 % Low 40-54 [facility] Hemoglobin A1c percentageOrd ered By: Hill Wright on 10-28-2024 HbA1c (Bld) [Mass fraction] 6.7 % >5.7 [facility] Hemoglobin measurementOrdere d By: Alber Dunn on 10-28-2024 Hemoglobin (Bld) [Mass/Vol] 12.7 g/dL Low 13.0-16.5 [facility] Immature granulocytes/100 WB C Auto (Bld)Ordered By: Alber Dunn on 10-28-2024 Immature granulocytes/100 WBC (Bld) 1.400 % High 0.0-0.9 [facility] Comment on above: IG% - Immature Granu locytes (promyelocytes, myelocytes and metamyelocytes) > 1% indicates that a LEFT SHIFT is Present. Ketones Test strip Ql (U)Ord ered By: Alber Dunn on 10-28-2024 Ketones Ql (U) 5 mg/dl High Negative [facility] Laboratory - Chemistry and C hemistry - challengeOrdered By: Alber Dunn on 10-28-2024 AST [Catalytic activity/Vol] 48 U/L High <38 [facility] Comment on above: Hemolysis present, R esults could be affected. Laboratory - Hematology and Cell countsOrdered By: Alber Dunn on 10-28-2024 Anisocytosis Ql (Bld) RARE [facility] Lactic acid measurementOrder ed By: Alber Dunn on 10-28-2024 Lactate [Moles/Vol] 4.0 mmol/L High 0.0-2.0 [facility] Comment on above: Critical Result(s) C [...] Lipase [Catalytic activity/Vol] 45 U/L 13-75 [facility] Comment on above: Please note:LIPASE r evised reference range effective 22. New Lipase methodology. Expected to produce lower values than the previous assay method. NEW Reference Range: 13 - 75 U/L Lymphocytes Auto (Unsp spec) [#/Vol]Ordered By: Alber Dunn on 10-28-2024 Lymphocytes (Bld) [#/Vol] 1.28 10*3/uL 0.83-4.51 [facility] Lymphocytes/100 WBC Auto (Un sp spec)Ordered By: Alber Dunn on 10-28-2024 Lymphocytes/100 WBC (Bld) 5.6 % Low 19-41 [facility] MCV (mean corpuscular volume ) determinationOrdered By: Alber Dunn on 10-28-2024 MCV (RBC) [Entitic vol] 91.2 fL 80-94 [facility] Macrocytes Ql (Bld)Ordered B y: Alber Dunn on 10-28-[address] [facility] Macrocytes detection RARE [facility] Macrocytes detectionOrdered By: Alber Dunn on 10-28-2024 Macrocytes Ql (Bld) RARE [facility] Manual differential comment Marco Antonio (Bld) [Interp]Ordered By: Alber Dunn on 10-28-2024 Differential Comment SEE COMMENT [facility] Comment on above: MONOCYTOSIS NOTED Mean corpuscular hemoglobin (MCH) determinationOrdered By: Alber Dunn on 10-28-2024 MCH (RBC) [Entitic mass] 31.1 pg 27.0-32.0 [facility] Mean corpuscular hemoglobin concentration (MCHC) determinationOrdered By: Alber Dunn on 10-28-2024 MCHC (RBC) [Mass/Vol] 34.0 g/dL 32-36 [facility] Mean platelet volume determi nationOrdered By: Alber Dunn on 10-28-2024 Platelet mean volume (Bld) [Entitic vol] 12.0 fL 6.2-12.0 [facility] Microscopic analysis of urin e for red blood cells (RBC)Ordered By: Alber Dunn on 10-28-2024 Urine RBC > 100 SEEN /hpf 0-5 [facility] Monocyte percentageOrdered B y: Alber Dunn on 10-28-2024 Monocytes/100 WBC (Bld) 8.4 % 0-10 [facility] Mucus LM Ql (Urine sed)Order ed By: Alber Dunn on 10-28-2024 Mucus Ql (Urine sed) 0 SEEN /hpf [facility] Neutrophil percentageOrdered By: Alber Dunn on 10-28-2024 Neutrophils/100 WBC (Bld) 83.0 % High 47-70 [facility] Nitrite Test strip Ql (U)Ord ered By: Alber Dunn on 10-28-2024 Nitrite Ql (U) Negative Negative [facility] Nucleated red blood cell per centageOrdered By: Alber Dunn on 10-28-2024 Nucleated RBC/100 WBC (Bld) [Ratio] 0 % 0-5 [facility] Osmolality (U) [Osmolality]O rdered By: Hill Wright on 10-28-2024 Osmolality ur 484 mOsm/KG >50 [facility] Osmolality urOrdered By: Hugo Wright on 10-28-2024 Osmolality (U) [Osmolality] 484 mOsm/KG >50 [facility] Ovalocytes LM Ql (Bld)Ordere d By: Alber Dunn on 10-28-[address] [facility] Pathologist review Marco Antonio (Unsp spec) [Interp]Ordered By: Alber Dunn on 10-28-2024 Differential Pathologist's Review December tai [facility] Platelet countOrdered By: Hernesto Dunn on 10-28-2024 Platelets (Bld) [#/Vol] 142 10*3/uL Low 150-450 [facility] Platelets LM Ql (Bld)Ordered By: Alber Dunn on 10-28-2024 Platelet Estimate ADEQUATE ADEQ [facility] Potassium (Unsp spec) [Mass/ Vol]Ordered By: Alber Dunn on 10-28-2024 Potassium [Moles/Vol] 4.5 mmol/L 3.3-5.1 [facility] Comment on above: Hemolysis present, R esults could be affected. Protein Test strip Ql (U)Ord ered By: Alber Dunn on 10-28-2024 Protein Ql (U) 500 mg/dl High Negative [facility] RBC Auto (Bld) [#/Vol]Ordere d By: Alber Dunn on 10-28-2024 RBC (Bld) [#/Vol] 4.09 10*6/uL Low 4.6-6.2 [facility] RBC morphology finding Nom ( Bld)Ordered By: Alber Dunn on 10-28-2024 Red Blood Cell Morphology N CHROM NORMAL NORM C&C [facility] Serum creatinine measurement (mass/volume)Ordered By: Alber Dunn on 10-28-2024 Creatinine [Mass/Vol] 1.33 mg/dL High 0.70-1.20 [facility] Serum globulin measurementOr dered By: Alber Dunn on 10-28-2024 Globulin (S) [Mass/Vol] 3.4 g/dL 2.2-4.2 [facility] Serum glucose measurement (m ass/volume)Ordered By: Alber Dunn on 10-28-2024 Glucose [Mass/Vol] 338 mg/dL High 70-99 [facility] Serum or plasma alanine thomas otransferase (ALT) measurementOrdered By: Alber Dunn on 10-28-2024 ALT [Catalytic activity/Vol] 23 U/L <47 [facility] Serum or plasma albumin roosevelt urement (mass/volume)Ordered By: Alber Dunn on 10-28-2024 Albumin [Mass/Vol] 2.5 g/dL Low 3.5-5.0 [facility] Serum or plasma albumin/glob ulin mass ratioOrdered By: Alber Dunn on 10-28-2024 Albumin/Globulin [Mass ratio] 0.7 {ratio} Low 0.9-2.4 [facility] Serum or plasma alkaline kendrick sphatase measurementOrdered By: Alber Dunn on 10-28-2024 ALP [Catalytic activity/Vol] 274 U/L High 40-129 [facility] Serum or plasma calcium roosevelt urement (mass/volume)Ordered By: Alber Dunn on 10-28-2024 Calcium [Mass/Vol] 9.2 mg/dL 7.6-11.0 [facility] Serum or plasma urea nitroge n measurement (mass/volume)Ordered By: Alber Dunn on 10-28-2024 Urea nitrogen [Mass/Vol] 25 mg/dL High 4-19 [facility] Sodium levelOrdered By: Alber Dunn on 10-28-2024 Sodium [Moles/Vol] 128 mmol/L Low 133-145 [facility] Total proteinOrdered By: Viraj Dunn on 10-28-2024 Protein [Mass/Vol] 5.9 g/dL 5.9-8.4 [facility] Urine blood detectionOrdered By: Alber Dunn on 10-28-2024 Urine Occult Blood 250 /ul High Negative [facility] Urine clarityOrdered By: Viraj Dunn on 10-28-2024 Clarity (U) Cloudy Clear [facility] Urine color determinationOrd ered By: Alber Dunn on 10-28-2024 Color (U) Red Yellow [facility] Urine leukocyte esterase det ection by dipstickOrdered By: Alber Dunn on 10-28-2024 Leukocyte esterase Test strip Ql (U) 500 /ul High Negative [facility] Urine pHOrdered By: Alber grajeda on 10-28-2024 pH (U) 6.5 [pH] 5.0 - 8.0 [facility] Urine sediment bacteria coun t by microscopy (number/high power field)Ordered By: Alber Dunn on 10-28-2024 Bacteria LM.HPF (Urine sed) [#/Area] 1 /[HPF] None Seen [facility] Urine specific gravity measu rementOrdered By: Alber Dunn on 10-28-2024 Specific gravity (U) [Rel density] 1.015 1.002-1.030 [facility] Urobilinogen Ql (U)Ordered B y: Alber Dunn on 10-28-2024 Urine Urobilinogen Normal mg/dl Normal [facility] White blood cell (WBC) count Ordered By: Alber Dunn on 10-28-2024 WBC (Bld) [#/Vol] 22.9 10*3/uL High 4.4-11.0 [facility] White blood cell countOrdere d By: Alber Dunn on 10-28-2024 Urine WBC >100 SEEN /hpf 0-5 [facility] APTTon 10-04-2024 aPTT Coag (PPP) [Time] 40 s High Un [facility] Albuminon 10-04-2024 Albumin (Body fld) [Mass/Vol] <0.5 Normal Not established [facility] Comment on above: Order Comment: Venip uncture immediately after or during the administration of Metamizole may lead to falsely low results. Testing should be performed immediately prior to Metamizole dosing. Performed By: #### 2 524-7 #### MIREYA SHAH ([id number]) [facility] ([facility]) [address] [place] [address] Bacteria identifiedon 2024 Bacteria identified Cx Nom (Body fld) Test: Sterile Fluid Culture/Smear Specimen Source: Pleural Specimen Type: Fluid Specimen Date: 10/04/20241713 Result Date: 10/08/2024824 Result Status: Final result Resulting Lab: [facility] [address] [place] [address] CULTURE No growth aerobically and anaerobically STAIN (1+) Rare Polymorphonuclear leukocytes No organisms seen Normal [facility] Comment on above: Performed By: #### 2 524-7 #### MIREYA SHAH ([id number]) [facility] ([facility]) [address] [place] [address] Basic metabolic 2000 panelon 10-04-2024 Anion gap [Moles/Vol] 8 mmol/L Low 10 - 2 0 mmol/L [facility] Calcium [Mass/Vol] 8.1 mg/dL Low 8.6 - 10. 3 mg/dL [facility] Chloride [Moles/Vol] 109 mmol/L High 98 - 10 7 mmol/L [facility] CO2 [Moles/Vol] 24 mmol/L 21 - 32 mmol/L [facility] Creatinine [Mass/Vol] 0.73 mg/dL 0.50 - 1.30 mg/dL [facility] eGFR - PINF [facility] Comment on above: Calculations of patric mated GFR are performed using the 2020 CKD-EPI Study Refit equation without the race variable for the IDMS-Traceable creatinine methods. https://jasn.asnjournals.org/content//ASN.2020 718690 Glucose [Mass/Vol] 197 mg/dL High 74 - 99 mg/dL [facility] Potassium [Moles/Vol] 3.9 mmol/L 3.5 - 5.3 mmol/L [facility] Sodium [Moles/Vol] 137 mmol/L 136 - 145 mmol/L [facility] Urea nitrogen [Mass/Vol] 17 mg/dL 6 - 23 mg/dL [facility] Anion gap [Moles/Vol] 8 mmol/L Low 10-20 [facility] Comment on above: Performed By: #### 2 4321-2 #### MIREYA SHAH ([id number]) [facility] ([facility]) [facility] [place] [address] Calcium [Mass/Vol] 8.1 mg/dL Low 8.6-10.3 [facility] Comment on above: Performed By: #### 2 4321-2 #### MIREYA SHAH ([id number]) [facility] ([facility]) [address] [place] [address] Chloride [Moles/Vol] 109 mmol/L High 98-107 [facility] Comment on above: Performed By: #### 2 4321-2 #### MIREYA SHAH ([id number]) [facility] ([facility]) [facility] [place] [address] CO2 [Moles/Vol] 24 mmol/L Normal 21-32 [facility] Comment on above: Performed By: #### 2 4321-2 #### MIREYA SHAH ([id number]) [facility] ([facility]) [address] [place] [address] Creatinine [Mass/Vol] 0.73 mg/dL Normal 0.50-1.30 [facility] Comment on above: Performed By: #### 2 4321-2 #### MIREYA SHAH ([id number]) [facility] ([facility]) [address] [place] [address] GFR/1.73 sq M.predicted MDRD (S/P/Bld) [Vol rate/Area] mL/min/{1.73_m2} Normal >60 [facility] Comment on above: Result Comment: Calc ulations of estimated GFR are performed using the 2020 CKD-EPI Study Refit equation without the race variable for the IDMS-Traceable creatinine methods. https://jasn.asnjournals.org/content/early//ASN.2020 053412 Performed By: #### 2 432-2 #### MIREYA SHAH ([id number]) [facility] ([facility]) [address] [place] [address] Glucose [Mass/Vol] 197 mg/dL High 74-99 [facility] Comment on above: Performed By: #### 2 4321-2 #### MIREYA SHAH ([id number]) [facility] ([facility]) [address] [place] [address] Potassium [Moles/Vol] 3.9 mmol/L Normal 3.5-5.3 [facility] Comment on above: Performed By: #### 2 4321-2 #### MIREYA SHAH ([id number]) [facility] ([facility]) [address] [place] [address] Sodium [Moles/Vol] 137 mmol/L Normal 136-145 [facility] Comment on above: Performed By: #### 2 4321-2 #### MIREYA ALYSSA ([id number]) [facility] ([facility]) [address] [place] [address] Urea nitrogen [Mass/Vol] 17 mg/dL Normal 6-23 [facility] Comment on above: Performed By: #### 2 4321-2 #### GOMES ALYSSA ([id number]) [facility] ([facility]) [address] [place] [address] CBC W Auto Differential pane l (Bld)on 10-04-2024 Basophils (Bld) [#/Vol] 0.02 10*3/uL [facility] Basophils/100 WBC (Bld) 0.4 % 0.0 - 2.0 % [facility] Eosinophils (Bld) [#/Vol] 0.15 10*3/uL [facility] Eosinophils/100 WBC (Bld) 2.7 % 0.0 - 6.0 % [facility] Erythrocyte distribution width (RBC) [Ratio] 22.1 % High 11.5 - 14.5 % [facility] Hematocrit (Bld) [Volume fraction] 29.8 % Low 41.0 - 52.0 % [facility] Hemoglobin (Bld) [Mass/Vol] 9.3 g/dL Low 13.5 - 17.5 g/dL [facility] Immature granulocytes (Bld) [#/Vol] 0.01 10*3/uL [facility] Immature granulocytes/100 WBC (Bld) 0.2 % 0.0 - 0.9 % [facility] Comment on above: Immature Granulocyte Count (IG) includes promyelocytes, myelocytes and metamyelocytes but does not include bands. Percent differential counts (%) should be interpreted in the context of the absolute cell counts (cells/UL). Interpretation and review of laboratory results Abnormal [facility] Lymphocytes (Bld) [#/Vol] 0.64 10*3/uL Low [facility] Lymphocytes/100 WBC (Bld) 11.5 % 13.0 - 44.0 % [facility] MCH (RBC) [Entitic mass] 30 pg 26.0 - 34.0 pg [facility] MCHC (RBC) [Mass/Vol] 31.2 g/dL Low 32.0 - 36.0 g/dL [facility] MCV (RBC) [Entitic vol] 96 fL 80 - 100 fL [facility] Monocytes (Bld) [#/Vol] 0.46 10*3/uL [facility] Monocytes/100 WBC (Bld) 8.3 % 2.0 - 10.0 % [facility] Neutrophils (Bld) [#/Vol] 4.28 10*3/uL [facility] Comment on above: Percent differential counts (%) should be interpreted in the context of the absolute cell counts (cells/uL). Neutrophils/100 WBC (Bld) 76.9 % 40.0 - 80.0 % [facility] Nucleated RBC/100 WBC (Bld) [Ratio] 0 % [facility] Platelets (Bld) [#/Vol] 65 10*3/uL Low U [facility] RBC (Bld) [#/Vol] 3.1 10*6/uL Low [facility] WBC (Bld) [#/Vol] 5.6 10*3/uL [facility] Basophils (Bld) [#/Vol] 0.02 x10*3/uL Normal 0.00-0.10 [facility] Comment on above: Performed By: #### 5 7021-8 #### MIREYA SHAH ([id number]) [facility] ([facility]) [address] [place] [address] Basophils/100 WBC (Bld) 0.4 % Normal 0.0-2.0 U [facility] Comment on above: Performed By: #### 5 7021-8 #### MIREYA SHAH ([id number]) [facility] ([facility]) [address] [place] [address]908 Eosinophils (Bld) [#/Vol] 0.15 x10*3/uL Normal 0.00-0.70 [facility] Comment on above: Performed By: #### 5 7021-8 #### MIREYA SHAH ([id number]) [facility] ([facility]) [address] [place] [address]18 Eosinophils/100 WBC (Bld) 2.7 % Normal 0.0-6.0 [facility] Comment on above: Performed By: #### 5 7021-8 #### MIREYA SHAH ([id number]) [facility] ([facility]) [address] [place] [address] Erythrocyte distribution width (RBC) [Ratio] 22.1 % High 11.5-14.5 [facility] Comment on above: Performed By: #### 5 7021-8 #### MIREYA SHAH ([id number]) [facility] ([facility]) [address] [place] [address]012 Hematocrit (Bld) [Volume fraction] 29.8 % Low 41.0-52.0 [facility] Comment on above: Performed By: #### 5 7021-8 #### MIREYA SHAH ([id number]) [facility] ([facility]) [address] [place] [address] Hemoglobin (Bld) [Mass/Vol] 9.3 g/dL Low 13.5-17.5 [facility] Comment on above: Performed By: #### 5 7021-8 #### MIREYA SHAH ([id number]) [facility] ([facility]) [address] [place] [address]86 Immature granulocytes (Bld) [#/Vol] 0.01 x10*3/uL Normal 0.00-0.70 [facility] Comment on above: Performed By: #### 5 7021-8 #### MIREYA SHAH ([id number]) [facility] ([facility]) [address] [place] [address]50 Immature granulocytes/100 WBC (Bld) 0.2 % Normal 0.0-0.9 [facility] Comment on above: Result Comment: Danielle ture Granulocyte Count (IG) includes promyelocytes, myelocytes and metamyelocytes but does not include bands. Percent differential counts (%) should be interpreted in the context of the absolute cell counts (cells/UL). Performed By: #### 5 7021-8 #### MIREYA SHAH ([id number]) [facility] ([facility]) [address] [place] [address]66 Lymphocytes (Bld) [#/Vol] 0.64 x10*3/uL Low 1.20-4.80 [facility] Comment on above: Performed By: #### 5 7021-8 #### MIREYA SHAH ([id number]) [facility] ([facility]) [address] [place] [address]30 Lymphocytes/100 WBC (Bld) 11.5 % Normal 13.0-44.0 [facility] Comment on above: Performed By: #### 5 7021-8 #### MIREYA SHAH ([id number]) [facility] ([facility]) [address] [place] [address] 12154 MCH (RBC) [Entitic mass] 30.0 pg Normal 26.0-34.0 [facility] Comment on above: Performed By: #### 5 7021-8 #### MIREYA SHAH ([id number]) [facility] ([facility]) [address] [place] [address] 00471 MCHC (RBC) [Mass/Vol] 31.2 g/dL Low 32.0-36.0 [facility] Comment on above: Performed By: #### 5 7021-8 #### MIREYA SHAH ([id number]) [facility] ([facility]) [address] [place] [address] 62022 MCV (RBC) [Entitic vol] 96 fL Normal 80-100 U [facility] Comment on above: Performed By: #### 5 7021-8 #### MIREYA SHAH ([id number]) [facility] ([facility]) [address] [place] [address] 02120 Monocytes (Bld) [#/Vol] 0.46 x10*3/uL Normal 0.10-1.00 [facility] Comment on above: Performed By: #### 5 7021-8 #### MIREYA SHAH ([id number]) [facility] ([facility]) [address] [place] [address] 69999 Monocytes/100 WBC (Bld) 8.3 % Normal 2.0-10.0 U [facility] Comment on above: Performed By: #### 5 7021-8 #### MIREYA SHAH ([id number]) [facility] ([facility]) [address] [place] [address] 16333 Neutrophils (Bld) [#/Vol] 4.28 x10*3/uL Normal 1.20-7.70 [facility] Comment on above: Result Comment: Perc ent differential counts (%) should be interpreted in the context of the absolute cell counts (cells/uL). Performed By: #### 5 7021-8 #### MIREYA SHAH ([id number]) [facility] ([facility]) [address] [place] [address] 49045 Neutrophils/100 WBC (Bld) 76.9 % Normal 40.0-80.0 [facility] Comment on above: Performed By: #### 5 7021-8 #### MIREYA SHAH ([id number]) [facility] ([facility]) [address] [place] [address] Nucleated RBC/100 WBC (Bld) [Ratio] 0.0 /100 WBCs Normal 0.0-0.0 [facility] Comment on above: Performed By: #### 5 7021-8 #### MIREYA SHAH ([id number]) [facility] ([facility]) [address] [place] [address] 22358 Platelets (Bld) [#/Vol] 65 x10*3/uL Low 150-450 [facility] Comment on above: Performed By: #### 5 7021-8 #### MIREYA SHAH ([id number]) [facility] ([facility]) [address] [place] [address] 92726 RBC (Bld) [#/Vol] 3.10 x10*6/uL Low 4.50-5.90 [facility] Comment on above: Performed By: #### 5 7021-8 #### MIREYA SHAH ([id number]) [facility] ([facility]) [address] [place] [address] 43288 WBC (Bld) [#/Vol] 5.6 x10*3/uL Normal 4.4-11.3 [facility] Comment on above: Performed By: #### 5 7021-8 #### GOMES ALYSSA ([id number]) [facility] ([facility]) [address] [place] [address] CT ABDOMEN PELVIS W IV CONTR [place] 10-04-2024 CT ABDOMEN PELVIS W IV CONTRAST Interpreted By: Yohana Huang, STUDY: CT ABDOMEN PELVIS W IV CONTRAST; 10/04/2024 2:16 pm INDICATION: Signs/Symptoms:generaliz ed abdominal pain, hx of cirrhosis, recent paracentesis. COMPARISON: None. ACCESSION NUMBER(S): [id number] ORDERING CLINICIAN: SRIRAM OLEARY TECHNIQUE: CT of [...] Yohana Huang 10/04/2024 2:28 PM Dictation workstation: [id number] [facility] CT Abdomen and Pelvis W cont rast Jamari 10-04-2024 Coronary artery calcifications. Anasarca. Ascites. Small irregular liver consistent with cirrhosis. Extensive collateral vessels. Enlarged spleen. Ventral and inguinal hernias containing ascitic fluid. MACRO: none Signed by: Yohana Huang 10/04/2024 2:28 PM Dictation workstation: [id number] Interpreted By: Yohana Chen, STUDY: CT ABDOMEN PELVIS W IV CONTRAST; 10/04/2024 2:16 pm INDICATION: Signs/Symptoms:generaliz ed abdominal pain, hx of cirrhosis, recent paracentesis. COMPARISON: None. ACCESSION NUMBER(S): [id number] ORDERING CLINICIAN: SRIRAM OLEARY TECHNIQUE: CT of [...] cirrhosis, recent paracentesis. COMPARISON: None. ACCESSION NUMBER(S): [id number] ORDERING CLINICIAN: SRIRAM OLEARY TECHNIQUE: CT of [...] Yohana Huang 10/04/2024 2:28 PM Dictation workstation: [id number] [facility] Work Phone: Radiology Study observation (narrative) [facility] Work Phone: CT Abdomen and Pelvis W cont rast IVOrdered By: Yohana Huang on 10-04-2024 [facility] Work Phone: Cell count panel (Body fld)O rdered By: Fortino Mcgee on 10-04-2024 Clarity (Body fld) Hazy Abnormal Clear [facility] Color (Body fld) Straw Colorless, Straw, Yellow [facility] Interpretation and review of laboratory results Abnormal [facility] RBC Auto (Body fld) [#/Vol] 2000 /uL see comment [facility] WBC (Body fld) [#/Vol] 0.058 10*3/uL See Commen t [facility] Body Fluid cell coun t reference ranges have not been established by [facility]. Reference ranges provided are based on published references. [facility] Cell count panel (Body fld)o n 10-04-2024 Clarity (Body fld) Hazy Abnormal Clear [facility] Comment on above: Order Comment: Body Fluid cell count reference ranges have not been established by [facility]. Reference ranges provided are based on published references. Performed By: #### 3 4556-1 #### MIREYA SHAH ([id number]) [facility] ([facility]) [address] [place] [address] Color (Body fld) Straw Normal Colorless, Straw, Yellow [facility] Comment on above: Order Comment: Body Fluid cell count reference ranges have not been established by [facility]. Reference ranges provided are based on published references. Performed By: #### 3 4556-1 #### MIREYA SHAH ([id number]) [facility] ([facility]) [facility] [place] [address] RBC Auto (Body fld) [#/Vol] 2000 /uL Normal see comment [facility] Comment on above: Order Comment: Body Fluid cell count reference ranges have not been established by [facility]. Reference ranges provided are based on published references. Performed By: #### 3 4556-1 ###Jesus SHAH ([id number]) [facility] ([facility]) [facility] [place] [address] WBC (Body fld) [#/Vol] 0.058 10*3/uL Normal See Sarath t [facility] Comment on above: Order Comment: Body Fluid cell count reference ranges have not been established by [facility]. Reference ranges provided are based on published references. Performed By: #### 3 4556-1 #### MIREYA SHAH ([id number]) [facility] ([facility]) [address] [place], [place] [address] Coagulation surface inducedo n 10-04-2024 aPTT Coag (PPP) [Time] 40 s High 26-36 [facility] Comment on above: Order Comment: The A PTT is no longer used for monitoring Unfractionated Heparin Therapy. For monitoring Heparin Therapy, use the Heparin Assay. Performed By: #### 1 4979-9 #### MIRYEA SHAH ([id number]) [facility] ([facility]) [address] [place], [place] [address] Coagulation tissue factor in ducedon 10-04-2024 PT Coag (PPP) [Time] 23.6 s High 9.8-12.4 [facility] Comment on above: Performed By: #### 5 902-2 #### MIREYA SHAH ([id number]) [facility] ([facility]) [address] [place], [place] [address] Differential panel (Body fld )on 10-04-2024 Basophils/100 WBC (Body fld) 0 % not established [facility] Blasts/100 WBC Manual cnt (Body fld) 0 % not established [facility] Cells Counted Total (Body fld) [#] 100 [facility] Eosinophils/100 WBC Manual cnt (Body fld) 0 % see comment [facility] Immature Granulocytes %, Manual, Fluid 0 % not established [facility] Interpretation and review of laboratory results Abnormal [facility] Lymphocytes/100 WBC Manual cnt (Body fld) 19 % see comment [facility] Monocytes+Macrophages/1 00 WBC Manual cnt (Body fld) 17 % see comment [facility] Neutrophils/100 WBC (Body fld) 40 % see comment [facility] Other cells/100 WBC Manual cnt (Body fld) 24 % High not established [facility] Comment on above: Mesothelial cells no tianna by tech Plasma cells/100 WBC Manual cnt (Body fld) 0 % not established [facility] Body Fluid cell differential reference ranges have not been established by [facility]. Reference ranges provided are based on published references. [facility] Basophils/100 WBC (Body fld) 0 % Normal not established [facility] Comment on above: Order Comment: Body Fluid cell differential reference ranges have not been established by [facility]. Reference ranges provided are based on published references. Performed By: #### 2 9580-8 #### MIREYA SHAH ([id number]) [facility] ([facility]) [address] [place] [address]28[address] Blasts/100 WBC Manual cnt (Body fld) 0 % Normal not established [facility] Comment on above: Order Comment: Body Fluid cell differential reference ranges have not been established by [facility]. Reference ranges provided are based on published references. Performed By: #### 2 9580-8 #### MIREYA SHAH ([id number]) [facility] ([facility]) [address] [place] [address] Cells Counted Total (Body fld) [#] 100 Normal [facility] Comment on above: Order Comment: Body Fluid cell differential reference ranges have not been established by [facility]. Reference ranges provided are based on published references. Performed By: #### 2 9580-8 #### MIREYA SHAH ([id number]) [facility] ([facility]) [facility] [place] [address] Eosinophils/100 WBC Manual cnt (Body fld) 0 % Normal see comment [facility] Comment on above: Order Comment: Body Fluid cell differential reference ranges have not been established by [facility]. Reference ranges provided are based on published references. Performed By: #### 2 9580-8 #### MIREYA SHAH ([id number]) [facility] ([facility]) [address] [place] [address] IMMATURE GRANULOCYTES IN FLUID 0 % Normal not established [facility] Comment on above: Order Comment: Body Fluid cell differential reference ranges have not been established by [facility]. Reference ranges provided are based on published references. Performed By: #### 2 9580-8 #### MIREYA SHAH ([id number]) [facility] ([facility]) [address] [place] [address] Lymphocytes/100 WBC Manual cnt (Body fld) 19 % Normal see comment [facility] Comment on above: Order Comment: Body Fluid cell differential reference ranges have not been established by [facility]. Reference ranges provided are based on published references. Performed By: #### 2 9580-8 #### MIREYA SHAH ([id number]) [facility] ([facility]) [address] [place] [address]07 Monocytes+Macrophages/1 00 WBC Manual cnt (Body fld) 17 % Normal see comment [facility] Comment on above: Order Comment: Body Fluid cell differential reference ranges have not been established by [facility]. Reference ranges provided are based on published references. Performed By: #### 2 9580-8 #### MIREYA SHAH ([id number]) [facility] ([facility]) [address] [place] [address] 669[address] Neutrophils/100 WBC (Body fld) 40 % Normal see comment [facility] Comment on above: Order Comment: Body Fluid cell differential reference ranges have not been established by [facility]. Reference ranges provided are based on published references. Performed By: #### 2 9580-8 #### MIREYA SHAH ([id number]) [facility] ([facility]) [address] [place] [address] Other cells/100 WBC Manual cnt (Body fld) 24 % High not established [facility] Comment on above: Order Comment: Body Fluid cell differential reference ranges have not been established by [facility]. Reference ranges provided are based on published references. Result Comment: Meso thelial cells noted by tech Performed By: #### 2 9580-8 #### MIREYA SHAH ([id number]) [facility] ([facility]) [address] [place] [address] Plasma cells/100 WBC Manual cnt (Body fld) 0 % Normal not established [facility] Comment on above: Order Comment: Body Fluid cell differential reference ranges have not been established by [facility]. Reference ranges provided are based on published references. Performed By: #### 2 9580-8 #### IMREYA SHAH ([id number]) [facility] ([facility]) [facility] [place] [address] Glucoseon 10-04-2024 Glucose (Body fld) [Mass/Vol] 200 mg/dL Normal Not established [facility] Comment on above: Order Comment: Venip uncture immediately after or during the administration of Metamizole may lead to falsely low results. Testing should be performed immediately prior to Metamizole dosing. Performed By: #### 2 524-7 #### MIREYA SHAH ([id number]) [facility] ([facility]) [address] [place], [place] [address] Hepatic function 2000 panelo n 10-04-2024 Albumin BCP dye [Mass/Vol] 2.4 g/dL Low 3.4 - 5.0 g/dL [facility] ALP [Catalytic activity/Vol] 212 U/L High 33 - 120 U/L [facility] ALT With P-5'-P [Catalytic activity/Vol] 46 U/L 10 - 52 U/L [facility] Comment on above: Patients treated wit h Sulfasalazine may generate falsely decreased results for ALT. AST With P-5'-P [Catalytic activity/Vol] 49 U/L High 9 - 39 U/L [facility] Bilirubin [Mass/Vol] 1.8 mg/dL High 0.0 - 1 .2 mg/dL [facility] Bilirubin.direct [Mass/Vol] 0.7 mg/dL High 0.0 - 0.3 mg/dL [facility] Protein [Mass/Vol] 5.7 g/dL Low 6.4 - 8.2 g/dL [facility] Albumin BCP dye [Mass/Vol] 2.4 g/dL Low 3.4-5.0 [facility] Comment on above: Performed By: #### 2 4325-3 #### MIREYA SHAH ([id number]) [facility] ([facility]) [address] [place] [address] ALP [Catalytic activity/Vol] 212 U/L High 33-120 [facility] Comment on above: Performed By: #### 2 5-3 #### MIREYA SHAH ([id number]) [facility] ([facility]) [address] [place] [address] ALT With P-5'-P [Catalytic activity/Vol] 46 U/L Normal 10-52 [facility] Comment on above: Result Comment: Argenis ents treated with Sulfasalazine may generate falsely decreased results for ALT. Performed By: #### 2 5-3 #### MIREYA SHAH ([id number]) [facility] ([facility]) [address] [place] [address] AST With P-5'-P [Catalytic activity/Vol] 49 U/L High 9-39 [facility] Comment on above: Performed By: #### 2 4324-3 #### MIREYA SHAH ([id number]) [facility] ([facility]) [address] [place] [address] Bilirubin [Mass/Vol] 1.8 mg/dL High 0.0-1.2 [facility] Comment on above: Performed By: #### 2 4324-3 #### MIREYA SHAH ([id number]) [facility] ([facility]) [address] [place] [address] Bilirubin.direct [Mass/Vol] 0.7 mg/dL High 0.0-0.3 [facility] Comment on above: Performed By: #### 2 5-3 #### MIREYA SHAH ([id number]) [facility] ([facility]) [address] [place] [address] Protein [Mass/Vol] 5.7 g/dL Low 6.4-8.2 [facility] Comment on above: Performed By: #### 2 5-3 #### MIREYA SHAH ([id number]) [facility] ([facility]) [address] [place] [address] Lactateon 10-04-2024 Lactate [Moles/Vol] 2 mmol/L 0.4 - 2. 0 mmol/L [facility] Lactate [Moles/Vol] 2.0 mmol/L Normal 0.4-2.0 [facility] Comment on above: Order Comment: Venip uncture immediately after or during the administration of Metamizole may lead to falsely low results. Testing should be performed immediately prior to Metamizole dosing. Performed By: #### 2 524-7 #### MIREYA SHAH ([id number]) [facility] ([facility]) [facility] [place] [address] Lactate [Moles/Vol]on 2024 Interpretation and review of laboratory results Normal [facility] Venipuncture immedia tely after or during the administration of Metamizole may lead to falsely low results. Testing should be performed immediately prior to Metamizole dosing. [facility] Lactate dehydrogenaseon LDH Lactate to pyruvate reaction (Body fld) [Catalytic activity/Vol] <25 Normal Not established. [facility] Comment on above: Order Comment: Venip uncture immediately after or during the administration of Metamizole may lead to falsely low results. Testing should be performed immediately prior to Metamizole dosing. Performed By: #### 2 524-7 #### MIREYA SHAH ([id number]) [facility] ([facility]) [address] [place] [address] Lipaseon 10-04-2024 Lipase [Catalytic activity/Vol] 56 U/L 9 - 82 U/L [facility] Lipase [Catalytic activity/V ol]on 10-04-2024 Interpretation and review of laboratory results Normal [facility] Venipuncture immedia tely after or during the administration of Metamizole may lead to falsely low results. Testing should be performed immediately prior to Metamizole dosing. [facility] No Panel Informationon 10-04 Interpretation and review of laboratory results Abnormal [facility] Interpretation and review of laboratory results Abnormal [facility] Non-shipping clerk cytology studyon Non-gynecological cytology method study Pathology report.total SEE COMMENT Non-gynecologic Cytology Case: [id number] Authorizing Provider: Joey Huang DO Collected: 10/04/2024 4304 Ordering Location: [facility] Received: 10/05/2024 [address] [facility] Pathologist: Jarvis Guzman MD Specimen: ASCITIC FLUID Path report.final diagnosis SEE COMMENT A. ASCITIC FLUID: - NO MALIGNANT CELLS IDENTIFIED. Note: This case has been evaluated using a concentrated (ThinPrep) preparation. Laboratory comment SEE COMMENT Slide(s) initially screened by ABEL Castro at [address] [id number] By the signature on this report, the [...] Block) A1-1 Pap Stain NGYN ThinPrep Normal [facility] PT Coag (PPP) [Time]on 10-04 INR Coag (PPP) [Relative time] 2.1 {INR} High 0.9 - 1.1 [facility] INR Coag (PPP) [Relative time] 2.1 High 0.9-1.1 [facility] Comment on above: Performed By: #### 5 902-2 #### GOMES ALYSSA ([id number]) [facility] ([facility]) [address] [place] [id number] Paracentesison 10-04-2024 Joey Huang DO 10/04/2024 5:18 [...] Adhesive bandage Post-procedure details: Procedure completion: Tolerated [facility] Work Phone: [facility] Work Phone: Proteinon 10-04-2024 Protein (Body fld) [Mass/Vol] g/dL Normal Not established [facility] Comment on above: Order Comment: Venip uncture immediately after or during the administration of Metamizole may lead to falsely low results. Testing should be performed immediately prior to Metamizole dosing. Performed By: #### 2 524-7 #### MIREYA SHAH ([id number]) [facility] ([facility]) [facility] [place] [address] Protime-INRon 10-04-2024 PT Coag (PPP) [Time] 23.6 s [facility] Triacylglycerol lipaseon Lipase [Catalytic activity/Vol] 56 U/L Normal 9-82 [facility] Comment on above: Order Comment: Venip uncture immediately after or during the administration of Metamizole may lead to falsely low results. Testing should be performed immediately prior to Metamizole dosing. Performed By: #### 3 040-3 #### MIREYA SHAH ([id number]) [facility] ([facility]) [address] [place] [address] aPTT Coag (PPP) [Time]on The APTT is no longe r used for monitoring Unfractionated Heparin Therapy. For monitoring Heparin Therapy, use the Heparin Assay. [facility] pHon 10-04-2024 pH (Body fld) 7.82 Normal See Below [facility] Comment on above: Order Comment: Venip uncture immediately after or during the administration of Metamizole may lead to falsely low results. Testing should be performed immediately prior to Metamizole dosing. Performed By: #### 2 524-7 #### GOMES ALYSSA ([id number]) [facility] ([facility]) [address] [place] [address] Glucose measurement at [facility] deOrdered By: Boone Izquierdo on 09-14-2024 Bedside Glucose (Misc Panel) 134 mg/dL High 74-106 [facility] Comment on above: MANAGEMENT OF PATIEN T CARE PER NURSING PROTOCOL Glucose [Mass/Vol] 134 mg/dL High 74-106 [facility] Glucose measurement at bedside 134 mg/dL High 74-106 [facility] Blood urea nitrogen (BUN)/cr eatinine ratioOrdered By: Jae Ash on 09-12-2024 Urea nitrogen/Creatinine [Mass ratio] 7.6 mg/mg Low 10-20 [facility] Blood urea nitrogen (BUN)/creatinine ratio 7.6 RATIO Low 10-20 [facility] Calcium [Mass/Vol]Ordered By : Jae Ash on 09-12-2024 Serum or plasma calcium measurement (mass/volume) 8.1 mg/dL Low 8.5-10.1 [facility] Carbon dioxide measurementOr dered By: Jae Ash on 09-12-2024 CO2 [Moles/Vol] 20.0 mmol/L Low 21.0-32.0 [facility] Carbon dioxide measurement 20.0 mmol/L Low 21.0-32.0 [facility] Chloride measurementOrdered By: Jae Ash on 09-12-2024 Chloride [Moles/Vol] 109 mmol/L High 98-107 [facility] Chloride measurement 109 mmol/L High 98-107 [facility] Creatinine [Mass/Vol]Ordered By: Jae Ash on 09-12-2024 Serum or plasma creatinine measurement (mass/volume) 0.92 mg/dL 0.70-1.30 [facility] Erythrocyte distribution wid th (RBC) [Ratio]Ordered By: Jae Ash on 09-12-2024 Erythrocyte distribution width ratio 19.7 % High 11.6-14.6 [facility] Erythrocyte distribution width standard deviation 63.5 fl High 35.1-43.9 [facility] Erythrocyte distribution wid th ratioOrdered By: Jae Ash on 09-12-2024 Erythrocyte distribution width (RBC) [Ratio] 19.7 % High 11.6-14.6 [facility] Erythrocyte distribution wid th standard deviationOrdered By: Jae Ash on 09-12-2024 Erythrocyte distribution width (RBC) [Entitic vol] 63.5 fL High 35.1-43.9 [facility] Erythrocyte distribution width (RBC) [Ratio] 63.5 fl High 35.1-43.9 [facility] Estimated glomerular filtrat ion rate (GFR) AmericanOrdered By: Jae Ash on 09-12-2024 Estimated GFR (MDRD) Amer 108 mL/min >60 [facility] Comment on above: GFR Calc Estimated glomerular filtration rate (GFR) 108 mL/min >60 [facility] Estimation of creatinine gregorio aranceOrdered By: Jae Ash on 09-12-2024 Estimated Creatinine Clearance Calc 71.80 ml/min [facility] Estimation of creatinine clearance 71.80 ml/min [facility] Glomerular filtration rate ( GFR) estimationOrdered By: Jae Ash on 09-12-2024 Estimated GFR (MDRD) Non-Af Amer 89 mL/min >60 [facility] Comment on above: Non- GFR Calc GFR/1.73 sq M.predicted among non-blacks MDRD (S/P/Bld) [Vol rate/Area] 89 mL/min/{1.73_m2} >60 [facility] Glomerular filtration rate (GFR) estimation 89 mL/min >60 [facility] Glucose measurementOrdered B y: Jae Ash on 09-12-2024 Glucose [Mass/Vol] 149 mg/dL High 74-106 [facility] Comment on above: Fasting Glucose resu lt greater than or equal to 126 mg/dL suggests DIABETES MELLITUS per A.D.A. criteria. Glucose measurement 149 mg/dL High 74-106 [facility] Hematocrit Auto (Bld) [Volum e fraction]Ordered By: Jae Ash on 09-12-2024 Hematocrit (Bld) [Volume fraction] 25.8 % Low 40-54 [facility] Automated blood hematocrit (percentage) 25.8 % Low 40-54 [facility] Hemoglobin measurementOrdere d By: Jae Ash on 09-12-2024 Hemoglobin (Bld) [Mass/Vol] 8.1 g/dL Low 13.0-16.5 [facility] Hemoglobin measurement 8.1 g/dL Low 13.0-16.5 [facility] MCV (RBC) [Entitic vol]Order ed By: Jae Ash on 09-12-2024 MCV (mean corpuscular volume) determination 90.5 fL 80-94 [facility] MCV (mean corpuscular volume ) determinationOrdered By: Jae Ash on 09-12-2024 MCV (RBC) [Entitic vol] 90.5 fL 80-94 [facility] Mean corpuscular hemoglobin (MCH) determinationOrdered By: Jae Ash on 09-12-2024 MCH (RBC) [Entitic mass] 28.4 pg 27.0-32.0 [facility] Mean corpuscular hemoglobin (MCH) determination 28.4 pg 27.0-32.0 [facility] Mean corpuscular hemoglobin concentration (MCHC) determinationOrdered By: Jae Ash on 09-12-2024 MCHC (RBC) [Mass/Vol] 31.4 g/dL Low 32-36 [facility] Comment on above: Delta: 33.1 on 09/10 Mean corpuscular hemoglobin concentration (MCHC) determination 31.4 g/dL Low 32-36 [facility] Mean platelet volume determi nationOrdered By: Jae Ash on 09-12-2024 Platelet mean volume (Bld) [Entitic vol] 11.9 fL 6.2-12.[address] [facility] [facility] Mean platelet volume determination 11.9 fl 6.2-12.0 [facility] Platelet countOrdered By: Sky Ash on 09-12-2024 Platelets (Bld) [#/Vol] 115 10*3/uL Low 150-450 [facility] Platelet count 115 K/mm3 Low 150-450 [facility] Potassium measurementOrdered By: Jae Ash on 09-12-2024 Potassium [Moles/Vol] 3.4 mmol/L Low 3.5-5.1 [facility] [place] Potassium measurement 3.4 mmol/L Low 3.5-5.1 [facility] [place] RBC Auto (Bld) [#/Vol]Ordere d By: Jae Ash on 09-12-2024 RBC (Bld) [#/Vol] 2.85 10*6/uL Low 4.6-6.2 [facility] Automated blood erythrocyte count 2.85 M/mm3 Low 4.6-6.2 [facility] Serum anion gap measurementO rdered By: Jae Ash on 09-12-2024 Anion gap [Moles/Vol] 7 mmol/L 5-15 [facility] [place] Serum anion gap measurement 7 5-15 [facility] Serum or plasma calcium roosevelt urement (mass/volume)Ordered By: Jae Ash on 09-12-2024 Calcium [Mass/Vol] 8.1 mg/dL Low 8.5-10.1 [facility] Serum or plasma creatinine m easurement (mass/volume)Ordered By: Jae Ash on 09-12-2024 Creatinine [Mass/Vol] 0.92 mg/dL 0.70-1.30 [facility] [place] Comment on above: The validity of the calculated GFR & GFRAA in patients over 70 years has not been determined. Clinical correlation is essential. Serum or plasma urea nitroge n measurement (mass/volume)Ordered By: Jae Ash on 09-12-2024 Urea nitrogen [Mass/Vol] 7 mg/dL - [facility] Sodium levelOrdered By: Pasha Ash on 09-12-2024 Sodium [Moles/Vol] 136 mmol/L 136-145 [facility] Sodium level 136 mmol/L 136-145 [facility] Urea nitrogen [Mass/Vol]Orde red By: Jae Ash on 09-12-2024 Serum or plasma urea nitrogen measurement (mass/volume) 7 mg/dL - [facility] White blood cell (WBC) count Ordered By: Jae Ash on 09-12-2024 WBC (Bld) [#/Vol] 7.4 10*3/uL 4.4-11.0 [facility] White blood cell (WBC) count 7.4 K/mm3 4.4-11.0 [facility] Serum or plasma trough vanco mycin levelOrdered By: Thai Thurston on 09-10-2024 Vancomycin trough [Mass/Vol] 15.7 ug/mL High 5.0-15.0 [facility] Vancomycin trough [Mass/Vol] Ordered By: Thai Thurston on 09-10-2024 Vancomycin Level Trough 15.7 ug/mL High 5.0-15.0 [facility] Comment on above: VANCOMYCIN STANDARED DRUG THERAPY TROUGH LEVEL: 5.0 - 15.0 mg/L VANCOMYCIN HIGH INTENSITY THERAPY TROUGH LEVEL: 15.0 - 20.0 mg/L High Intensity therapy recommended for serious lifethreatening infections include:- Nipytanaum-Konzmckdpuih-Sfacqrgdf (Ventilator/Healtcare Associated)-Sepsis PLEASE CONTACT PHARMACY SERVICES (#[id number]) FOR INTERPRETATIONOF RESULTS. Serum or plasma trough vancomycin level 15.7 ug/mL High 5.0-15.0 [facility] Serum or plasma vancomycin l evel (mass/volume)Ordered By: Maria Guadalupe Shore on 09-08-2024 Vancomycin [Mass/Vol] 16.5 ug/mL High 0.0-15.0 [facility] [place] Vancomycin [Mass/Vol]Ordered By: Maria Guadalupe Shore on 09-08-2024 Random Vancomycin Level 16.5 ug/mL High 0.0-15.0 [facility] Comment on above: VANCOMYCIN STANDARD DRUG THERAPY: CRITICAL VALUE IS > 15.0 mg/L VANCOMYCIN HIGH INTENSITY THERAPY: CRITICAL VALUE IS > 20.0 mg/L PLEASE CONTACT PHARMACY SERVICES (#[id number]) FOR INTERPRETATIONOF RESULTS. THIS RESULT DOES NOT REPRESENT A PEAK OR TROUGHLEVEL FOR THIS DRUG. Serum or plasma vancomycin level (mass/volume) 16.5 ug/mL High 0.0-15.0 [facility] Absolute lymphocyte countOrd ered By: Anurag Irene on 09-07-2024 Lymphocytes Auto (Unsp spec) [#/Vol] 0.95 10*3/uL 0.83-4.51 [facility] Absolute neutrophil countOrd ered By: Anurag Irene on 09-07-2024 Neutrophils (Bld) [#/Vol] 13.3 10*3/uL High 2.0-7.7 [facility] Absolute neutrophil count 13.3 X10^3/uL High 2.0-7.7 [facility] Automated lymphocyte count a s percentage of total leukocytesOrdered By: Anurag Irene on 09-07-2024 Lymphocytes/100 WBC Auto (Unsp spec) 5.8 % Low 19-41 [facility] Basophil percentageOrdered B y: Anurag Irene on 09-07-2024 Basophils/100 WBC (Bld) 0.4 % 0-1 [facility] Basophil percentage 0.4 % 0-1 [facility] Eosinophil percentageOrdered By: Anurag Irene on 09-07-2024 Eosinophils/100 WBC (Bld) 3.0 % 0-5 [facility] Eosinophil percentage 3.0 % 0-5 [facility] [place] Immature granulocytes/100 WB C Auto (Bld)Ordered By: Anurag Irene on 09-07-2024 Immature granulocytes/100 WBC (Bld) 1.400 % High 0.0-0.9 [facility] Comment on above: IG% - Immature Granu locytes (promyelocytes, myelocytes and metamyelocytes) > 1% indicates that a LEFT SHIFT is Present. Automated immature granulocyte percentage 1.400 % High 0.0-0.9 [facility] Lymphocytes Auto (Unsp spec) [#/Vol]Ordered By: Anurag Irene on 09-07-2024 Lymphocytes (Bld) [#/Vol] 0.95 10*3/uL 0.83-4.51 [facility] Absolute lymphocyte count 0.95 X10^3/uL 0.83-4.51 [facility] Lymphocytes/100 WBC Auto (Un sp spec)Ordered By: Anurag Irene on 09-07-2024 Lymphocytes/100 WBC (Bld) 5.8 % Low 19-41 [facility] Automated lymphocyte count as percentage of total leukocytes 5.8 % Low 19-41 [facility] Monocyte percentageOrdered B y: Anurag Irene on 09-07-2024 Monocytes/100 WBC (Bld) 8.6 % 0-10 [facility] Monocyte percentage 8.6 % 0-10 [facility] Neutrophil percentageOrdered By: Anurag Irene on 09-07-2024 Neutrophils/100 WBC (Bld) 80.8 % High 47-70 [facility] Neutrophil percentage 80.8 % High 47-70 [facility] [place] Nucleated red blood cell per centageOrdered By: Anurag Irene on 09-07-2024 Nucleated RBC/100 WBC (Bld) [Ratio] 0 % 0-5 [facility] Nucleated red blood cell percentage 0 % 0-5 [facility] Blood cultureOrdered By: [place] Irene on 09-06-2024 Bacteria identified Cx Nom (Bld) No growth in [address] [facility] Blood culture No growth in 5 days. [facility] Blood cultureOrdered By: Shi Joiner on 09-05-2024 Bacteria identified Cx Nom (Bld) Staphylococcus epidermidis Abnormal [facility] Blood culture Staphylococcus epidermidis Abnormal [facility] Folic acid measurementOrdere d By: Hill Wright on 09-05-2024 Folate 30.10 ng/mL 3.1-55.4 [facility] Folic acid measurement 30.10 ng/mL 3.1-55.4 [facility] Lactic acid measurementOrder ed By: Hill Wright on 09-05-2024 Lactate [Moles/Vol] 2.3 mmol/L High 0.4-2.0 [facility] Comment on above: Critical Result(s) C alled at: 08:26:40 09/05/2024 by: Lucy jenkins [facility]. Results read back by same. Lactic acid measurement 2.3 mmol/L High 0.4-2.0 [facility] Serum ethanol measurementOrd ered By: Hill Wright on 09-05-2024 Ethyl Alcohol Level 4.0 mg/dL [facility] Comment on above: The serum:whole bloo d ethanol ratio is approximately 1.14and varies slightly with hematocrit. Medical Alcohol reference interval and critical value innon-tolerant individuals; 50 - 100 Impairment 100 Intoxication 100 - 250 Severe Poisoning 250 - 400 Deep/possible fatal coma Serum ethanol measurement 4.0 mg/dL [facility] Vitamin B12 measurementOrder ed By: Hill Wright on 09-05-2024 Vitamin B12 Level > 2000 pg/mL High 211-911 [facility] Vitamin B12 measurement > 2000 pg/mL High 211-911 [facility] ALP [Catalytic activity/Vol] Ordered By: Rachel Joiner on 09-04-2024 Serum or plasma alkaline phosphatase measurement 269 U/L High 45-117 [facility] ALT [Catalytic activity/Vol] Ordered By: Rachel Joiner on 09-04-2024 Serum or plasma alanine aminotransferase (ALT) measurement 79 U/L High 16-61 [facility] Albumin [Mass/Vol]Ordered By : Rachel Joiner on 09-04-2024 Serum or plasma albumin measurement (mass/volume) 2.0 g/dL Low 3.2-5.0 [facility] Bilirubin Test strip Ql (U)O rdered By: Rachel Joiner on 09-04-2024 Bilirubin Ql (U) 1 mg/dL High Negative [facility] Comment on above: COLOR OF URINE MAY A FFECT DIPSTICK RESULTS. Bilirubin directOrdered By: Rachel Joiner on 09-04-2024 Bilirubin.direct [Mass/Vol] 1.80 mg/dL High 0.00-0.30 [facility] Bilirubin, totalOrdered By: Rachel Joiner on 09-04-2024 Bilirubin [Mass/Vol] 3.10 mg/dL High 0.20-1.00 [facility] Comment on above: For patients on eltr ombopag therapy, use of Dimension [place] TBIL is not recommended. Bilirubin, total 3.10 mg/dL High 0.20-1.00 [facility] Bilirubin.direct [Mass/Vol]O rdered By: Rachel Joiner on 09-04-2024 Bilirubin direct 1.80 mg/dL High 0.00-0.30 [facility] Blood cultureOrdered By: Shi Joiner on 09-04-2024 Bacteria identified Cx Nom (Bld) [facility] Clarity (U)Ordered By: Kaz Joiner on 09-04-[address] Clear [facility] Color (U)Ordered By: Rachel Joiner on 09-04-2024 Urine color determination Yellow Yellow [facility] Epithelial cells.squamous LM Ql (Urine sed)Ordered By: Rachel Joiner on 09-04-2024 Epithelial cells.squamous LM.HPF (Urine sed) [#/Area] 0 /[HPF] 0-5 [facility] Glucose Ql (U)Ordered By: Brendan Joiner on 09-04-2024 Urine Glucose (UA) Normal mg/dl Normal [facility] Urine glucose detection Normal mg/dl Normal [facility] HbA1c (Bld) [Mass fraction]O rdered By: Hill Wright on 09-04-2024 Hemoglobin A1c percentage 7.3 % High 3.8-5.6 [facility] Hemoglobin A1c percentageOrd ered By: Hill Wright on 09-04-2024 HbA1c (Bld) [Mass fraction] 7.3 % High 3.8-5.6 [facility] Comment on above: Normal < 5.7 % Predi abetic 5.7 - 6.4 % Diabetic >or= 6.5 % Please note range changes. Ketones Test strip Ql (U)Ord ered By: Rachel Joiner on 09-04-2024 Ketones Ql (U) Negative Negative [facility] Laboratory - Chemistry and C hemistry - challengeOrdered By: Rachel Joiner on 09-04-2024 AST [Catalytic activity/Vol] 156 U/L High 15-37 [facility] Leukocyte esterase Test stri p Ql (U)Ordered By: Rachel Joiner on 09-04-2024 Urine leukocyte esterase detection by dipstick 100 /ul High Negative [facility] Methadone, urineOrdered By: Rachel Joiner on 09-04-2024 Urine Methadone Screen Negative < 300 ng/mL [facility] Microorganism identified Cx Nom (Unsp spec)Ordered By: Rachel Joiner on 09-04-2024 Bacteria Detection (PCR) Staphylococcus epidermidis Abnormal [facility] Bacteria Detection (PCR) mecA Resistance Marker Abnormal [facility] Organism identification mecA Resistance Marker Abnormal [facility] Microscopic analysis of urin e for red blood cells (RBC)Ordered By: Rachel Joiner on 09-04-2024 Urine RBC 10-25 SEEN /hpf 0-5 [facility] Microscopic analysis of urine for red blood cells (RBC) 10-25 SEEN /hpf 0-5 [facility] Mucus LM Ql (Urine sed)Order ed By: Rachel Joiner on 09-04-2024 Mucus Ql (Urine sed) 0 SEEN /hpf [facility] [place] Nitrite Test strip Ql (U)Ord ered By: Rachel Joiner on 09-04-2024 Nitrite Ql (U) Negative Negative [facility] No Panel InformationOrdered By: Rachel Joiner on 09-04-2024 156 U/L High 15-37 [facility] Urine Drug Screen Comment [facility] Comment on above: CONFIRMATORY TESTING FOR [...] BE ORDERED SEPARATELY. USE TESTMNEMONIC: [facility] Organism identificationOrder ed By: Rachel Joiner on 09-04-2024 Microorganism identified Cx Nom (Unsp spec) Staphylococcus epidermidis Abnormal [facility] Microorganism identified Cx Nom (Unsp spec) mecA Resistance Marker Abnormal [facility] Protein Test strip Ql (U)Ord ered By: Rachel Joiner on 09-04-2024 Protein Ql (U) 30 mg/dl High Negative [facility] Urine protein assay by test strip, semi-quantitative 30 mg/dl High Negative [facility] Quantitative urine opiates m easurementOrdered By: Rachel Joiner on 09-04-2024 Opiates Ql (U) Positive High < 300 ng/mL [facility] Quantitative urine opiates measurement Positive High < 300 ng/mL [facility] Screening prostate specific antigen (PSA) measurementOrdered By: Hill Wright on 09-04-2024 Prostate Specific Antigen Screen 1.41 ng/mL 0.00-4.00 [facility] Comment on above: This test was perfor med using the TPSA assay method for the[employer] chemistry system. Values obtained with differentassay methods cannot be used interchangably.When changing PSA assays in the course of monitoring apatient, additional sequential testing should be carriedout to confirm baseline values. Screening prostate specific antigen (PSA) measurement 1.41 ng/mL 0.00-4.00 [facility] Serum globulin measurementOr dered By: Rachel Joiner on 09-04-2024 Globulin (S) [Mass/Vol] 4.1 g/dL 2.2-4.2 [facility] Serum globulin measurement 4.1 g/dL 2.2-4.2 [facility] Serum or plasma alanine thomas otransferase (ALT) measurementOrdered By: Rachel Joiner on 09-04-2024 ALT [Catalytic activity/Vol] 79 U/L High 16-61 [facility] Serum or plasma albumin roosevelt urement (mass/volume)Ordered By: Rachel Joiner on 09-04-2024 Albumin [Mass/Vol] 2.0 g/dL Low 3.2-5.0 [facility] Serum or plasma alkaline kednrick sphatase measurementOrdered By: Rachel Joiner on 09-04-2024 ALP [Catalytic activity/Vol] 269 U/L High 45-117 [facility] Serum or plasma thyroid stim ulating hormone (TSH) measurement (units/volume)Ordered By: Hill Wright on 09-04-2024 TSH Qn 0.826 uIU/mL 0.358-3.740 [facility] Specific gravity (U) [Rel de nsity]Ordered By: Rachel Joiner on 09-04-2024 Urine specific gravity measurement 1.020 1.002-1.030 [facility] Squamous epithelial cells de tection in urine sediment by light microscopyOrdered By: Rachel Joiner on 09-04-2024 Epithelial cells.squamous LM Ql (Urine sed) 0 SEEN /hpf 0-5 [facility] Squamous epithelial cells detection in urine sediment by light microscopy 0 SEEN /hpf [facility] TSH QnOrdered By: Hill patino on 09-04-2024 Thyroid Stimulating Hormone (TSH) 0.826 uIU/mL 0.358-3.740 [facility] Serum or plasma thyroid stimulating hormone (TSH) measurement (units/volume) 0.826 uIU/mL 0.358-3.740 [facility] Total proteinOrdered By: Shi Joiner on 09-04-2024 Protein [Mass/Vol] 6.1 g/dL Low 6.4-8.2 [facility] Total protein 6.1 g/dL Low 6.4-8.2 [facility] Urine amphetamine measuremen tOrdered By: Rachel Joiner on 09-04-2024 Amphetamines Ql (U) Negative <1000 ng/mL [facility] Urine barbiturates measureme ntOrdered By: Rachel Joiner on 09-04-2024 Urine Barbiturates Screen Negative < 200 ng/mL [facility] Urine benzodiazepine levelOr dered By: Rachel Joiner on 09-04-2024 Benzodiazepines Ql (U) Negative < [facility] Urine blood detectionOrdered By: Rachel Joiner on 09-04-2024 Urine Occult Blood 150 /ul High Negative [facility] Urine blood detection 150 /ul High Negative [facility] [place] Urine clarityOrdered By: Shi Joiner on 09-04-2024 Clarity (U) Clear Clear [facility] Urine cocaine levelOrdered B y: Rachel Joiner on 09-04-2024 Cocaine Ql (U) Negative < 300 ng/mL [facility] Urine color determinationOrd ered By: Rachel Joiner on 09-04-2024 Color (U) Yellow Yellow [facility] Urine cultureOrdered By: Hugo Wright on 09-04-2024 Bacteria identified Cx Nom (U) Staphylococcus epidermidis Abnormal [facility] Urine culture Staphylococcus epidermidis Abnormal [facility] Urine [id number] abinol (THC) measurementOrdered By: Rachel Joiner on 09-04-2024 Cannabinoids Screen Ql (U) Negative < 50 ng/mL [facility] Urine glucose detectionOrder ed By: Rachel Joiner on 09-04-2024 Glucose Ql (U) Normal mg/dl Normal [facility] Urine ketones detection by t est stripOrdered By: Rachel Joiner on 09-04-2024 Urine ketones detection by test strip Negative < 50 ng/mL [facility] Urine leukocyte esterase det ection by dipstickOrdered By: Rachel Joiner on 09-04-2024 Leukocyte esterase Test strip Ql (U) 100 /ul High Negative [facility] Urine methylenedioxymethamph etamine (MDMA) measurementOrdered By: Rachel Joiner on 09-04-2024 MDMA (Ecstasy) Screen Negative < 500 ng/mL [facility] Urine pHOrdered By: Rachel silva on 09-04-2024 pH (U) 6.0 [pH] 5.0 - 8.0 [facility] Urine phencyclidine (PCP) de tectionOrdered By: Rachel Joiner on 09-04-2024 Phencyclidine Ql (U) Negative < 25 ng/mL [facility] Urine sediment bacteria coun t by microscopy (number/high power field)Ordered By: Rachel Joiner on 09-04-2024 Bacteria LM.HPF (Urine sed) [#/Area] 0 /[HPF] None Seen [facility] Urine specific gravity measu rementOrdered By: Rachel Joiner on 09-04-2024 Specific gravity (U) [Rel density] 1.020 1.002-1.030 [facility] Urine total bilirubin detect ion by test stripOrdered By: Rachel Joiner on 09-04-2024 Urine total bilirubin detection by test strip 1 mg/dL High Normal [facility] Urine urobilinogen measureme ntOrdered By: Rachel Joiner on 09-04-2024 Urobilinogen Ql (U) 1 mg/dl High Normal [facility] Urobilinogen Ql (U)Ordered B y: Rachel Joiner on 09-04-2024 Urobilinogen (U) [Mass/Vol] 1 mg/dL High Normal [facility] Venous blood ammonia measure mentOrdered By: Rachel Joiner on 09-04-2024 Ammonia (P) [Moles/Vol] 26.0 umol/L [facility] Venous blood ammonia measurement 26.0 umol/L [facility] White blood cell countOrdere d By: Rachel Joiner on 09-04-2024 Urine WBC 5-10 SEEN /hpf 0-5 [facility] Comment on above: Previous reported re sult: 0 SEEN /hpfEdited by: DANIEL on 09/04/24:2007 AMENDED REPORT 09/04/24 4547 WBC previously reported as: 0 SEEN /hpf White blood cell count 5-10 SEEN /hpf 0-5 [facility] White blood cell count 5-10 SEEN /hpf 0-5 [facility] pH (U)Ordered By: Rachel coles on 09-04-2024 Urine pH 6.0 5.0 - 8.0 [facility] Absolute lymphocyte countOrd ered By: Bola Meraz on 09-02-2024 Lymphocytes Auto (Unsp spec) [#/Vol] 1.04 10*3/uL 0.83-4.51 [facility] Absolute neutrophil countOrd ered By: Bola Meraz on 09-02-2024 Neutrophils (Bld) [#/Vol] 14.0 10*3/uL High 2.0-7.7 [facility] Absolute neutrophil count 14.0 X10^3/uL High 2.0-7.7 [facility] Automated lymphocyte count a s percentage of total leukocytesOrdered By: Bola Meraz on 09-02-2024 Lymphocytes/100 WBC Auto (Unsp spec) 6.3 % Low 19-41 [facility] Basophil percentageOrdered B y: Bola Meraz on 09-02-2024 Basophils/100 WBC (Bld) 0.4 % 0-1 [facility] Basophil percentage 0.4 % 0-1 [facility] Blood urea nitrogen (BUN)/cr eatinine ratioOrdered By: Bola Meraz on 09-02-2024 Urea nitrogen/Creatinine [Mass ratio] 16.9 mg/mg 10-20 [facility] Blood urea nitrogen (BUN)/creatinine ratio 16.9 RATIO 10-20 [facility] Calcium [Mass/Vol]Ordered By : Bola Meraz on 09-02-2024 Serum or plasma calcium measurement (mass/volume) 8.9 mg/dL 8.5-10.1 [facility] Carbon dioxide measurementOr dered By: Bola Meraz on 09-02-2024 CO2 [Moles/Vol] 19.0 mmol/L Low 21.0-32.0 [facility] Carbon dioxide measurement 19.0 mmol/L Low 21.0-32.0 [facility] Chloride measurementOrdered By: Bola Meraz on 09-02-2024 Chloride [Moles/Vol] 107 mmol/L 98-107 [facility] Chloride measurement 107 mmol/L 98-107 [facility] Creatinine [Mass/Vol]Ordered By: Bola eMraz on 09-02-2024 Serum or plasma creatinine measurement (mass/volume) 2.54 mg/dL High 0.70-1.30 [facility] Eosinophil percentageOrdered By: Bola Meraz on 09-02-2024 Eosinophils/100 WBC (Bld) 1.3 % 0-5 [facility] Eosinophil percentage 1.3 % 0-5 [facility] [place] Erythrocyte distribution wid th (RBC) [Ratio]Ordered By: Bola Meraz on 09-02-2024 Erythrocyte distribution width ratio 15.7 % High 11.6-14.6 [facility] Erythrocyte distribution width standard deviation 47.0 fl High 35.1-43.9 [facility] Erythrocyte distribution wid th ratioOrdered By: Bola Meraz on 09-02-2024 Erythrocyte distribution width (RBC) [Ratio] 15.7 % High 11.6-14.6 [facility] Erythrocyte distribution wid th standard deviationOrdered By: Bola Meraz on 09-02-2024 Erythrocyte distribution width (RBC) [Entitic vol] 47.0 fL High 35.1-43.9 [facility] Erythrocyte distribution width (RBC) [Ratio] 47.0 fl High 35.1-43.9 [facility] Estimated glomerular filtrat ion rate (GFR) AmericanOrdered By: Bola Meraz on 09-02-2024 Estimated GFR (MDRD) Amer 34 mL/min Low >60 [facility] Comment on above: GFR Calc Estimated glomerular filtration rate (GFR) 34 mL/min Low >60 [facility] Estimation of creatinine gregorio aranceOrdered By: Bola Meraz on 09-02-2024 Estimated Creatinine Clearance Calc 37.67 ml/min [facility] Estimation of creatinine clearance 37.67 ml/min [facility] Glomerular filtration rate ( GFR) estimationOrdered By: Bola Meraz on 09-02-2024 Estimated GFR (MDRD) Non-Af Amer 28 mL/min Low >60 [facility] Comment on above: Non- GFR Calc GFR/1.73 sq M.predicted among non-blacks MDRD (S/P/Bld) [Vol rate/Area] 28 mL/min/{1.73_m2} Low >60 [facility] Glomerular filtration rate (GFR) estimation 28 mL/min Low >60 [facility] Glucose measurementOrdered B y: Bola Meraz on 09-02-2024 Glucose [Mass/Vol] 187 mg/dL High 74-106 [facility] Comment on above: Fasting Glucose resu lt greater than or equal to 126 mg/dL suggests DIABETES MELLITUS per A.D.A. criteria. Glucose measurement 187 mg/dL High 74-106 [facility]dered By: Rick Carlin on 09-02-2024 Bedside Glucose (Misc Panel) 168 mg/dL High 74-106 [facility] Comment on above: MANAGEMENT OF PATIEN T CARE PER NURSING PROTOCOL Glucose [Mass/Vol] 168 mg/dL High 74-106 [facility] Glucose measurement at bedside 168 mg/dL High 74-106 [facility] Hematocrit Auto (Bld) [Volum e fraction]Ordered By: Bola Meraz on 09-02-2024 Hematocrit (Bld) [Volume fraction] 30.8 % Low 40-54 [facility] Automated blood hematocrit (percentage) 30.8 % Low 40-54 [facility] Hemoglobin measurementOrdere d By: Bola Meraz on 09-02-2024 Hemoglobin (Bld) [Mass/Vol] 10.7 g/dL Low 13.0-16.5 [facility] Hemoglobin measurement 10.7 g/dL Low 13.0-16.5 [facility] Immature granulocytes/100 WB C Auto (Bld)Ordered By: Bola Meraz on 09-02-2024 Immature granulocytes/100 WBC (Bld) 1.300 % High 0.0-0.9 [facility] Comment on above: IG% - Immature Granu locytes (promyelocytes, myelocytes and metamyelocytes) > 1% indicates that a LEFT SHIFT is Present. Automated immature granulocyte percentage 1.300 % High 0.0-0.9 [facility] Lymphocytes Auto (Unsp spec) [#/Vol]Ordered By: Bola Meraz on 09-02-2024 Lymphocytes (Bld) [#/Vol] 1.04 10*3/uL 0.83-4.51 [facility] Absolute lymphocyte count 1.04 X10^3/uL 0.83-4.51 [facility] Lymphocytes/100 WBC Auto (Un sp spec)Ordered By: Bola Meraz on 09-02-2024 Lymphocytes/100 WBC (Bld) 6.3 % Low 19-41 [facility] Automated lymphocyte count as percentage of total leukocytes 6.3 % Low 19-41 [facility] MCV (RBC) [Entitic vol]Order ed By: Bola Meraz on 09-02-2024 MCV (mean corpuscular volume) determination 83.7 fL 80-94 [facility] MCV (mean corpuscular volume ) determinationOrdered By: Bola Meraz on 09-02-2024 MCV (RBC) [Entitic vol] 83.7 fL 80-94 [facility] Mean corpuscular hemoglobin (MCH) determinationOrdered By: Bola Meraz on 09-02-2024 MCH (RBC) [Entitic mass] 29.1 pg 27.0-32.0 [facility] Mean corpuscular hemoglobin (MCH) determination 29.1 pg 27.0-32.0 [facility] Mean corpuscular hemoglobin concentration (MCHC) determinationOrdered By: Bola Meraz on 09-02-2024 MCHC (RBC) [Mass/Vol] 34.7 g/dL 32-36 [facility] [place] Mean corpuscular hemoglobin concentration (MCHC) determination 34.7 g/dL 32-36 [facility] Mean platelet volume determi nationOrdered By: Bola Meraz on 09-02-2024 Platelet mean volume (Bld) [Entitic vol] 12.8 fL High 6.2-12.0 [facility] Mean platelet volume determination 12.8 fl High 6.2-12.0 [facility] Monocyte percentageOrdered B y: Bola Meraz on 09-02-2024 Monocytes/100 WBC (Bld) 6.0 % 0-10 [facility] Monocyte percentage 6.0 % 0-10 [facility] Neutrophil percentageOrdered By: Bola Meraz on 09-02-2024 Neutrophils/100 WBC (Bld) 84.7 % High 47-70 [facility] Neutrophil percentage 84.7 % High 47-70 [facility] [place] Nucleated red blood cell per centageOrdered By: Bola Meraz on 09-02-2024 Nucleated RBC/100 WBC (Bld) [Ratio] 0 % 0-5 [facility] Nucleated red blood cell percentage 0 % 0-5 [facility] Platelet countOrdered By: Oliver on 09-02-2024 Platelets (Bld) [#/Vol] 82 10*3/uL Low 150-450 [facility] Platelet count 82 K/mm3 Low 150-450 [facility] Potassium measurementOrdered By: Bola Meraz on 09-02-2024 Potassium [Moles/Vol] 4.0 mmol/L 3.5-5.1 [facility] [place] Potassium measurement 4.0 mmol/L 3.5-5.1 [facility] [place] RBC Auto (Bld) [#/Vol]Ordere d By: Bola Meraz on 09-02-2024 RBC (Bld) [#/Vol] 3.68 10*6/uL Low 4.6-6.2 [facility] Automated blood erythrocyte count 3.68 M/mm3 Low 4.6-6.2 [facility] Serum anion gap measurementO rdered By: Bola Meraz on 09-02-2024 Anion gap [Moles/Vol] 8 mmol/L 5-15 [facility] [place] Serum anion gap measurement 8 5-15 [facility] Serum or plasma calcium roosevelt urement (mass/volume)Ordered By: Bola Meraz on 09-02-2024 Calcium [Mass/Vol] 8.9 mg/dL 8.5-10.1 [facility] Serum or plasma creatinine m easurement (mass/volume)Ordered By: Bola Meraz on 09-02-2024 Creatinine [Mass/Vol] 2.54 mg/dL High 0.70-1.30 [facility] [place] Comment on above: The validity of the calculated GFR & GFRAA in patients over 70 years has not been determined. Clinical correlation is essential. Serum or plasma urea nitroge n measurement (mass/volume)Ordered By: Bola Meraz on 09-02-2024 Urea nitrogen [Mass/Vol] 43 mg/dL High 7-18 [facility] Sodium levelOrdered By: Deanna Meraz on 09-02-2024 Sodium [Moles/Vol] 133 mmol/L Low 136-145 [facility] Sodium level 133 mmol/L Low 136-145 [facility] Urea nitrogen [Mass/Vol]Orde red By: Bola Meraz on 09-02-2024 Serum or plasma urea nitrogen measurement (mass/volume) 43 mg/dL High 7-18 [facility] White blood cell (WBC) count Ordered By: Bola Meraz on 09-02-2024 WBC (Bld) [#/Vol] 16.5 10*3/uL High 4.4-11.0 [facility] White blood cell (WBC) count 16.5 K/mm3 High 4.4-11.0 [facility] ALP [Catalytic activity/Vol] Ordered By: Maria Guadalupe Shore on 08-30-2024 Serum or plasma alkaline phosphatase measurement 143 U/L High 45-117 [facility] ALT [Catalytic activity/Vol] Ordered By: Maria Guadalupe Shore on 08-30-2024 Serum or plasma alanine aminotransferase (ALT) measurement 19 U/L 16-61 [facility] Albumin [Mass/Vol]Ordered By : Maria Guadalupe Shore on 08-30-2024 Serum or plasma albumin measurement (mass/volume) 1.9 g/dL Low 3.2-5.0 [facility] Bilirubin directOrdered By: Maria Guadalupe Shore on 08-30-2024 Bilirubin.direct [Mass/Vol] 0.83 mg/dL High 0.00-0.30 [facility] Bilirubin, totalOrdered By: Maria Guadalupe Shore on 08-30-2024 Bilirubin [Mass/Vol] 1.30 mg/dL High 0.20-1.00 [facility] Comment on above: For patients on eltr ombopag therapy, use of Dimension [place] TBIL is not recommended. Bilirubin, total 1.30 mg/dL High 0.20-1.00 [facility] Bilirubin.direct [Mass/Vol]O rdered By: Maria Guadalupe Shore on 08-30-2024 Bilirubin direct 0.83 mg/dL High 0.00-0.30 [facility] Ferritin measurementOrdered By: Maria Guadalupe Shore on 08-30-2024 Ferritin [Mass/Vol] 85 ng/mL 26-388 [facility] Ferritin measurement 85 ng/mL 26-388 [facility] HbA1c (Bld) [Mass fraction]O rdered By: Maria Guadalupe Shore on 08-30-2024 Hemoglobin A1c percentage 7.9 % High 3.8-5.6 [facility] Hemoglobin A1c percentageOrd ered By: Maria Guadalupe Shore on 08-30-2024 HbA1c (Bld) [Mass fraction] 7.9 % High 3.8-5.6 [facility] Comment on above: Normal < 5.7 % Predi abetic 5.7 - 6.4 % Diabetic >or= 6.5 % Please note range changes. Iron (Unsp spec) [Mass/Mass] Ordered By: Maria Guadalupe Shore on 08-30-2024 Iron [Mass/Vol] 62 ug/dL Low 65-175 [facility] Iron measurement (mass/mass) 62 ug/dL Low 65-175 [facility] Iron measurement (mass/mass) Ordered By: Maria Guadalupe Shore on 08-30-2024 Iron (Unsp spec) [Mass/Mass] 62 ug/dL Low 65-175 [facility] Iron saturation [Mass fracti on]Ordered By: Maria Guadalupe Shore on 08-30-2024 Iron Saturation 33.9 % 15.0-55.0 [facility] Serum or plasma iron saturation measurement (mass fraction) 33.9 % 15.0-55.0 [facility] Laboratory - Chemistry and C hemistry - challengeOrdered By: Maria Guadalupe Shore on 08-30-2024 AST [Catalytic activity/Vol] 22 U/L 15-37 [facility] No Panel InformationOrdered By: Maria Guadalupe Shore on 08-30-2024 22 U/L 15-37 [facility] Serum globulin measurementOr dered By: Maria Guadalupe Shore 08-30-2024 Globulin (S) [Mass/Vol] 3.4 g/dL 2.2-4.2 [facility] Serum globulin measurement 3.4 g/dL 2.2-4.2 [facility] Serum or plasma alanine thomas otransferase (ALT) measurementOrdered By: Maria Guadalupe Shore 08-30-2024 ALT [Catalytic activity/Vol] 19 U/L 16-61 [facility] Serum or plasma albumin roosevelt urement (mass/volume)Ordered By: Maria Guadalupe Shore 08-30-2024 Albumin [Mass/Vol] 1.9 g/dL Low 3.2-5.0 [facility] Serum or plasma alkaline kendrick sphatase measurementOrdered By: Maria Guadalupe Shore 08-30-2024 ALP [Catalytic activity/Vol] 143 U/L High 45-117 [facility] Serum or plasma iron saturat ion measurement (mass fraction)Ordered By: Maria Guadalupe Shore 08-30-2024 Iron saturation [Mass fraction] 33.9 % 15.0-55.0 [facility] TIBCOrdered By: Maria Guadalupe Shore on 08-30-2024 Total Iron Binding Capacity 183 ug/dL Low 250-450 [facility] TIBC 183 ug/dL Low 250-450 [facility] Total proteinOrdered By: Caryl Shore on 08-30-2024 Protein [Mass/Vol] 5.3 g/dL Low 6.4-8.2 [facility] Total protein 5.3 g/dL Low 6.4-8.2 [facility] Venous blood ammonia measure mentOrdered By: Maria Guadalupe Shore on 08-30-2024 Ammonia (P) [Moles/Vol] 64.0 umol/L High [facility] Venous blood ammonia measurement 64.0 umol/L High [facility] Activated partial thrombopla stin time (aPTT) in platelet poor plasma by coagulation aOrdered By: Luis Carlos Anderson on 08-29-2024 aPTT Coag (PPP) [Time] 40.9 s High 24.1-36.2 [facility] Albumin to globulin ratioOrd ered By: Luis Carlos Anderson on 08-29-2024 Albumin/Globulin [Mass ratio] 0.4 {ratio} Low 0.9-2.4 [facility] Albumin to globulin ratio 0.4 RATIO Low 0.9-2.4 [facility] Bacteria LM.HPF (Urine sed) [#/Area]Ordered By: Luis Carlos Anderson on 08-29-2024 Urine Bacteria RARE /hpf None Seen [facility] Urine sediment bacteria count by microscopy (number/high power field) RARE /hpf None Seen [facility] Bilirubin Test strip Ql (U)O rdered By: Luis Carlos Anderson on 08-29-2024 Bilirubin Ql (U) 1 mg/dL High Negative [facility] Comment on above: COLOR OF URINE MAY A FFECT DIPSTICK RESULTS. Clarity (U)Ordered By: Juan Alberto Anderson on 08-29-[address] [facility] Color (U)Ordered By: Luis Carlos Anderson on 08-29-2024 Urine color determination Yellow Yellow [facility] Creatinine (U) [Mass/Vol]Ord ered By: Maria Guadalupe Shore on 08-29-2024 Urine creatinine measurement (mass/volume) 173.00 mg/dL NO RANGE EST. [facility] Epithelial cells.squamous LM Ql (Urine sed)Ordered By: Luis Carlos Anderosn on 08-29-2024 Epithelial cells.squamous LM.HPF (Urine sed) [#/Area] 0 /[HPF] 0-5 [facility] Squamous epithelial cells detection in urine sediment by light microscopy 0 SEEN /hpf 0-5 [facility] Glucose Ql (U)Ordered By: Yaya Anderson on 08-29-2024 Glucose (U) [Mass/Vol] 50 mg/dL High Normal [facility] Urine glucose detection 50 mg/dl High Normal [facility] International normalized rat io (INR) calculationOrdered By: Luis Carlos Anderson on 08-29-2024 INR Coag (Bld) [Relative time] 1.7 {INR} [facility] International normalized ratio (INR) calculation 1.7 [facility] Ketones Test strip Ql (U)Ord ered By: Luis Carlos Anderson on 08-29-2024 Ketones Ql (U) Negative Negative [facility] Leukocyte esterase Test stri p Ql (U)Ordered By: Luis Carlos Anderson on 08-29-2024 Urine leukocyte esterase detection by dipstick 500 /ul High Negative [facility] Lipase measurementOrdered By : Luis Carlos Anderson on 08-29-2024 Lipase [Catalytic activity/Vol] 26 U/L 13-75 [facility] Comment on above: Please note:LIPASE r evised reference range effective 22. New Lipase methodology. Expected to produce lower values than the previous assay method. NEW Reference Range: 13 - 75 U/L Lipase measurement 26 U/L 13-75 [facility] Magnesium measurementOrdered By: Maria Guadalupe Shore on 08-29-2024 Magnesium [Mass/Vol] 2.7 mg/dL High 1.6-2.6 [facility] Magnesium measurement 2.7 mg/dL High 1.6-2.6 [facility] [place] Microscopic analysis of urin e for red blood cells (RBC)Ordered By: Luis Carlos Anderson on 08-29-2024 Urine RBC 5-10 SEEN /hpf 0-5 [facility] Microscopic analysis of urine for red blood cells (RBC) 5-10 SEEN /hpf 0-5 [facility] Mucus LM Ql (Urine sed)Order ed By: Luis Carlos Anderson on 08-29-2024 Mucus Ql (Urine sed) 1+ /hpf [facility] Mucus detection in urine sediment by light microscopy 1+ /hpf [facility] Nitrite Test strip Ql (U)Ord ered By: Luis Carlos Anderson on 08-29-2024 Nitrite Ql (U) Negative Negative [facility] Phosphorus measurementOrdere d By: Maria Guadalupe Shore on 08-29-2024 Phosphorus Level 4.9 mg/dL 2.5-4.9 [facility] Phosphorus measurement 4.9 mg/dL 2.5-4.9 [facility] Protein Test strip Ql (U)Ord ered By: Luis Carlos Anderson on 08-29-2024 Protein Ql (U) 30 mg/dl High Negative [facility] Urine protein assay by test strip, semi-quantitative 30 mg/dl High Negative [facility] Prothrombin timeOrdered By: Luis Carlos Anderson on 08-29-2024 PT Coag (PPP) [Time] 20.0 s High 11.7-14.9 [facility] Prothrombin time 20.0 SECONDS High 11.7-14.9 [facility] Sodium urOrdered By: Maria Guadalupe Shore on 08-29-2024 Sodium (U) [Moles/Vol] 30 mmol/L Not Establ. [facility] Sodium [Moles/Vol] 30 mmol/L Not Establ. [facility] Sodium ur 30 mmol/L Not Establ. [facility] Specific gravity (U) [Rel de nsity]Ordered By: Luis Carlos Anderson on 08-29-2024 Urine specific gravity measurement 1.015 1.002-1.030 [facility] Squamous epithelial cells de tection in urine sediment by light microscopyOrdered By: Luis Carlos Anderson on 08-29-2024 Epithelial cells.squamous LM Ql (Urine sed) 0 SEEN /hpf 0-5 [facility] Urine blood detectionOrdered By: Luis Carlos Anderson on 08-29-2024 Urine Occult Blood 150 /ul High Negative [facility] Urine blood detection 150 /ul High Negative [facility] [place] Urine clarityOrdered By: Joann Anderson on 08-29-2024 Clarity (U) Clear Clear [facility] Urine color determinationOrd ered By: Luis Carlos Anderson on 08-29-2024 Color (U) Yellow Yellow [facility] Urine creatinine measurement (mass/volume)Ordered By: Maria Guadalupe White on 08-29-2024 Creatinine (U) [Mass/Vol] 173.00 mg/dL NO RANGE EST. [facility] Urine cultureOrdered By: Joann Anderson on 08-29-2024 Bacteria identified Cx Nom (U) Culture exhibits no growth. [facility] Urine culture Culture exhibits no growth. [facility] Urine glucose detectionOrder ed By: Luis Carlos Anderson on 08-29-2024 Glucose Ql (U) 50 mg/dl High Normal [facility] Urine ketones detection by t est stripOrdered By: Luis Carlos Anderson on 08-29-2024 Urine ketones detection by test strip Negative Negative [facility] Urine leukocyte esterase det ection by dipstickOrdered By: Luis Carlos Anderson on 08-29-2024 Leukocyte esterase Test strip Ql (U) 500 /ul High Negative [facility] Urine pHOrdered By: Luis Carlos hammond on 08-29-2024 pH (U) 6.0 [pH] 5.0 - 8.0 [facility] Urine sediment bacteria coun t by microscopy (number/high power field)Ordered By: Luis Carlos Anderson on 08-29-2024 Bacteria LM.HPF (Urine sed) [#/Area] RARE /hpf None Seen [facility] Urine specific gravity measu rementOrdered By: Luis Carlos Anderson on 08-29-2024 Specific gravity (U) [Rel density] 1.015 1.002-1.030 [facility] Urine total bilirubin detect ion by test stripOrdered By: Luis Carlos Anderson on 08-29-2024 Urine total bilirubin detection by test strip 1 mg/dL High Normal [facility] Urine urobilinogen measureme ntOrdered By: Luis Carlos Anderson on 08-29-2024 Urobilinogen Ql (U) 1 mg/dl High Normal [facility] Urobilinogen Ql (U)Ordered B y: Luis Carlos Anderson on 08-29-2024 Urobilinogen (U) [Mass/Vol] 1 mg/dL High Normal [facility] White blood cell countOrdere d By: Luis Carlos Anderson on 08-29-2024 Urine WBC 10-25 SEEN /hpf 0-5 [facility] White blood cell count 10-25 SEEN /hpf 0-5 [facility] White blood cell count 10-25 SEEN /hpf 0-5 [facility] aPTT Coag (PPP) [Time]Ordere d By: Luis Carlos Anderson on 08-29-2024 aPTT Coag (Bld) [Time] 40.9 s High 24.1-36.2 [facility] Activated partial thromboplastin time (aPTT) in platelet poor plasma by coagulation a 40.9 Seconds High 24.1-36.2 [facility] pH (U)Ordered By: Ashu on 08-29-2024 Urine pH 6.0 5.0 - 8.0 [facility] Vital Signs Date Time Vital Sign Value Performing Clinician Facility 02-17-2025 17:05-0400 Body temperature 98.2 [degF] No Primary Care Physician [facility] 02-17-2025 17:05-0400 Diastolic blood pressure 71 mm[Hg] No Primary Care Physician [facility] 02-17-2025 17:05-0400 Heart rate 74 /min No Primary Care Physician [facility] 02-17-2025 17:05-0400 Respiratory rate 16 /min No Primary Care Physician [facility] 02-17-2025 17:05-0400 SaO2% (BldA) [Mass fraction] 98 % No Primary Care Physician [facility] 02-17-2025 17:05-0400 Systolic blood pressure 123 mm[Hg] No Primary Care Physician [facility] 02-16-2025 19:56-0400 Body height 175.26 cm No Primary Care Physician [facility] 02-16-2025 19:56-0400 Body mass index (BMI) [Ratio] 31.1 kg/m2 No Primary Care Physician [facility] 02-16-2025 19:56-0400 Body weight 95.6 kg No Primary Care Physician [facility] 02-16-2025 19:34-0400 Body temperature 97.8 [degF] No Primary Care Physician [facility] 02-16-2025 19:34-0400 Diastolic blood pressure 61 mm[Hg] No Primary Care Physician [facility] 02-16-2025 19:34-0400 Heart rate 76 /min No Primary Care Physician [facility] 02-16-2025 19:34-0400 Respiratory rate 18 /min No Primary Care Physician [facility] 02-16-2025 19:34-0400 SaO2% (BldA) [Mass fraction] 96 % No Primary Care Physician [facility] 02-16-2025 19:34-0400 Systolic blood pressure 102 mm[Hg] No Primary Care Physician [facility] 02-16-2025 17:20-0400 Body height 175.26 cm No Primary Care Physician [facility] 02-13-2025 21:17-0400 Body temperature 98.8 [degF] No Primary Care Physician [facility] 02-13-2025 21:17-0400 Diastolic blood pressure 75 mm[Hg] No Primary Care Physician [facility] 02-13-2025 21:17-0400 Heart rate 59 /min No Primary Care Physician [facility] 02-13-2025 21:17-0400 Respiratory rate 16 /min No Primary Care Physician [facility] 02-13-2025 21:17-0400 SaO2% (BldA) [Mass fraction] 100 % No Primary Care Physician [facility] 02-13-2025 21:17-0400 Systolic blood pressure 97 mm[Hg] No Primary Care Physician [facility] 02-13-2025 16:30-0400 Body height 175.26 cm No Primary Care Physician [facility] 02-13-2025 16:30-0400 Body mass index (BMI) [Ratio] 33 kg/m2 No Primary Care Physician [facility] 02-13-2025 16:30-0400 Body weight 101.5 kg No Primary Care Physician [facility] 02-11-2025 12:35-0400 Diastolic blood pressure 55 mm[Hg] No Primary Care Physician [facility] 02-11-2025 12:35-0400 Heart rate 63 /min No Primary Care Physician [facility] 02-11-2025 12:35-0400 Respiratory rate 18 /min No Primary Care Physician [facility] 02-11-2025 12:35-0400 Systolic blood pressure 85 mm[Hg] No Primary Care Physician [facility] 02-11-2025 12:33-0400 Body temperature 97.3 [degF] No Primary Care Physician [facility] 02-08-2025 01:26-0400 Body temperature 97.6 [degF] No Primary Care Physician [facility] 02-08-2025 01:26-0400 Diastolic blood pressure 63 mm[Hg] No Primary Care Physician [facility] 02-08-2025 01:26-0400 Heart rate 62 /min No Primary Care Physician [facility] 02-08-2025 01:26-0400 Respiratory rate 18 /min No Primary Care Physician [facility] 02-08-2025 01:26-0400 SaO2% (BldA) [Mass fraction] 100 % No Primary Care Physician [facility] 02-08-2025 01:26-0400 Systolic blood pressure 97 mm[Hg] No Primary Care Physician [facility] 02-07-2025 22:20-0400 Body mass index (BMI) [Ratio] 34.8 kg/m2 No Primary Care Physician [facility] 02-07-2025 22:20-0400 Body weight 107.1 kg No Primary Care Physician [facility] 02-07-2025 19:24-0400 Body height 175.26 cm No Primary Care Physician [facility] 01-31-2025 18:35-0400 Body temperature 98.1 [degF] No Primary Care Physician [facility] 01-31-2025 18:35-0400 Diastolic blood pressure 86 mm[Hg] No Primary Care Physician [facility] 01-31-2025 18:35-0400 Heart rate 100 /min No Primary Care Physician [facility] 01-31-2025 18:35-0400 Respiratory rate 16 /min No Primary Care Physician [facility] 01-31-2025 18:35-0400 SaO2% (BldA) [Mass fraction] 100 % No Primary Care Physician [facility] 01-31-2025 18:35-0400 Systolic blood pressure 127 mm[Hg] No Primary Care Physician [facility] 01-31-2025 09:49-0400 Body height 182.88 cm No Primary Care Physician [facility] 01-31-2025 09:49-0400 Body weight 110.3 kg No Primary Care Physician [facility] 01-28-2025 09:46-0400 Body mass index (BMI) [Ratio] 33 kg/m2 No Primary Care Physician [facility] 01-28-2025 09:00-0400 Body temperature 98 [degF] No Primary Care Physician [facility] 01-28-2025 09:00-0400 Diastolic blood pressure 67 mm[Hg] No Primary Care Physician [facility] 01-28-2025 09:00-0400 Heart rate 106 /min No Primary Care Physician [facility] 01-28-2025 09:00-0400 Respiratory rate 15 /min No Primary Care Physician [facility] 01-28-2025 09:00-0400 SaO2% (BldA) [Mass fraction] 100 % No Primary Care Physician [facility] 01-28-2025 09:00-0400 Systolic blood pressure 125 mm[Hg] No Primary Care Physician [facility] 01-28-2025 02:56-0400 Body height 187.96 cm No Primary Care Physician [facility] 01-28-2025 02:56-0400 Body mass index (BMI) [Ratio] 31.7 kg/m2 No Primary Care Physician [facility] 01-28-2025 02:56-0400 Body weight 112.2 kg No Primary Care Physician [facility] 01-21-2025 13:00-0400 Body temperature 97.7 [degF] No Primary Care Physician [facility] 01-21-2025 13:00-0400 Diastolic blood pressure 60 mm[Hg] No Primary Care Physician [facility] 01-21-2025 13:00-0400 Heart rate 91 /min No Primary Care Physician [facility] 01-21-2025 13:00-0400 Respiratory rate 18 /min No Primary Care Physician [facility] 01-21-2025 13:00-0400 SaO2% (BldA) [Mass fraction] 97 % No Primary Care Physician [facility] 01-21-2025 13:00-0400 Systolic blood pressure 100 mm[Hg] No Primary Care Physician [facility] 01-21-2025 05:13-0400 Body mass index (BMI) [Ratio] 35.8 kg/m2 No Primary Care Physician [facility] 01-21-2025 05:13-0400 Body weight 110.1 kg No Primary Care Physician [facility] 01-17-2025 14:51-0400 Body height 175.26 cm No Primary Care Physician [facility] 01-09-2025 14:01-0400 Heart rate 69 /min No Primary Care Physician [facility] 01-09-2025 14:01-0400 Respiratory rate 16 /min No Primary Care Physician [facility] 01-09-2025 14:01-0400 SaO2% (BldA) [Mass fraction] 100 % No Primary Care Physician [facility] 01-09-2025 14:00-0400 Diastolic blood pressure 59 mm[Hg] No Primary Care Physician [facility] 01-09-2025 14:00-0400 Systolic blood pressure 107 mm[Hg] No Primary Care Physician [facility] 01-09-2025 13:04-0400 Body temperature 98 [degF] No Primary Care Physician [facility] 01-09-2025 10:10-0400 Body height 175.26 cm No Primary Care Physician [facility] 01-09-2025 10:10-0400 Body mass index (BMI) [Ratio] 29.5 kg/m2 No Primary Care Physician [facility] 01-09-2025 10:10-0400 Body weight 90.6 kg No Primary Care Physician [facility] 01-05-2025 16:00-0400 Body temperature 98.1 [degF] No Primary Care Physician [facility] 01-05-2025 16:00-0400 Diastolic blood pressure 60 mm[Hg] No Primary Care Physician [facility] 01-05-2025 16:00-0400 Heart rate 73 /min No Primary Care Physician [facility] 01-05-2025 16:00-0400 Respiratory rate 16 /min No Primary Care Physician [facility] 01-05-2025 16:00-0400 SaO2% (BldA) [Mass fraction] 94 % No Primary Care Physician [facility] 01-05-2025 16:00-0400 Systolic blood pressure 103 mm[Hg] No Primary Care Physician [facility] 01-05-2025 04:44-0400 Body mass index (BMI) [Ratio] 29.9 kg/m2 No Primary Care Physician [facility] 01-05-2025 04:44-0400 Body weight 92.2 kg No Primary Care Physician [facility] 01-02-2025 10:11-0400 Body height 175.26 cm No Primary Care Physician [facility] 01-02-2025 06:34-0400 Body temperature 97.8 [degF] No Primary Care Physician [facility] 01-02-2025 06:34-0400 Diastolic blood pressure 73 mm[Hg] No Primary Care Physician [facility] 01-02-2025 06:34-0400 Heart rate 68 /min No Primary Care Physician [facility] 01-02-2025 06:34-0400 Respiratory rate 20 /min No Primary Care Physician [facility] 01-02-2025 06:34-0400 SaO2% (BldA) [Mass fraction] 100 % No Primary Care Physician [facility] 01-02-2025 06:34-0400 Systolic blood pressure 105 mm[Hg] No Primary Care Physician [facility] 01-02-2025 02:59-0400 Body height 175.26 cm No Primary Care Physician [facility] 01-02-2025 02:59-0400 Body mass index (BMI) [Ratio] 27.5 kg/m2 No Primary Care Physician [facility] 01-02-2025 02:59-0400 Body weight 84.5 kg No Primary Care Physician [facility] 12-30-2024 05:24-0400 Body temperature 97.9 [degF] No Primary Care Physician [facility] 12-30-2024 05:24-0400 Diastolic blood pressure 52 mm[Hg] No Primary Care Physician [facility] 12-30-2024 05:24-0400 Heart rate 71 /min No Primary Care Physician [facility] 12-30-2024 05:24-0400 Respiratory rate 18 /min No Primary Care Physician [facility] 12-30-2024 05:24-0400 SaO2% (BldA) [Mass fraction] 93 % No Primary Care Physician [facility] 12-30-2024 05:24-0400 Systolic blood pressure 93 mm[Hg] No Primary Care Physician [facility] 12-30-2024 01:07-0400 Body height 175.26 cm No Primary Care Physician [facility] 12-30-2024 01:07-0400 Body mass index (BMI) [Ratio] 28.4 kg/m2 No Primary Care Physician [facility] 12-30-2024 01:07-0400 Body weight 87.3 kg No Primary Care Physician [facility] 12-26-2024 14:27-0400 Body temperature 97 [degF] No Primary Care Physician [facility] 12-26-2024 14:27-0400 Diastolic blood pressure 58 mm[Hg] No Primary Care Physician [facility] 12-26-2024 14:27-0400 Heart rate 64 /min No Primary Care Physician [facility] 12-26-2024 14:27-0400 Respiratory rate 16 /min No Primary Care Physician [facility] 12-26-2024 14:27-0400 SaO2% (BldA) [Mass fraction] 97 % No Primary Care Physician [facility] 12-26-2024 14:27-0400 Systolic blood pressure 90 mm[Hg] No Primary Care Physician [facility] 12-26-2024 10:00-0400 Body height 175.26 cm No Primary Care Physician [facility] 12-26-2024 10:00-0400 Body mass index (BMI) [Ratio] 29.7 kg/m2 No Primary Care Physician [facility] 12-26-2024 10:00-0400 Body weight 91.4 kg No Primary Care Physician [facility] 12-02-2024 12:13-0400 Body temperature 98.7 [degF] No Primary Care Physician [facility] 12-02-2024 12:13-0400 Diastolic blood pressure 68 mm[Hg] No Primary Care Physician [facility] 12-02-2024 12:13-0400 Heart rate 86 /min No Primary Care Physician [facility] 12-02-2024 12:13-0400 Respiratory rate 18 /min No Primary Care Physician [facility] 12-02-2024 12:13-0400 SaO2% (BldA) [Mass fraction] 97 % No Primary Care Physician [facility] 12-02-2024 12:13-0400 Systolic blood pressure 117 mm[Hg] No Primary Care Physician [facility] 12-02-2024 02:57-0400 Body mass index (BMI) [Ratio] 33 kg/m2 No Primary Care Physician [facility] 12-02-2024 02:57-0400 Body weight 101.6 kg No Primary Care Physician [facility] 11-29-2024 09:53-0400 Body height 175.26 cm No Primary Care Physician [facility] 11-25-2024 18:31-0400 Body temperature 98.2 [degF] No Primary Care Physician [facility] 11-25-2024 18:31-0400 Diastolic blood pressure 80 mm[Hg] No Primary Care Physician [facility] 11-25-2024 18:31-0400 Heart rate 97 /min No Primary Care Physician [facility] 11-25-2024 18:31-0400 Respiratory rate 18 /min No Primary Care Physician [facility] 11-25-2024 18:31-0400 SaO2% (BldA) [Mass fraction] 98 % No Primary Care Physician [facility] 11-25-2024 18:31-0400 Systolic blood pressure 122 mm[Hg] No Primary Care Physician [facility] 11-24-2024 15:17-0400 Body weight 102.7 kg No Primary Care Physician [facility] 11-21-2024 05:32-0400 Body mass index (BMI) [Ratio] 33.4 kg/m2 No Primary Care Physician [facility] 11-21-2024 05:00-0400 Heart rate 77 /min No Primary Care Physician [facility] 11-21-2024 04:51-0400 Body temperature 98.2 [degF] No Primary Care Physician [facility] 11-21-2024 04:51-0400 Diastolic blood pressure 57 mm[Hg] No Primary Care Physician [facility] 11-21-2024 04:51-0400 Respiratory rate 16 /min No Primary Care Physician [facility] 11-21-2024 04:51-0400 SaO2% (BldA) [Mass fraction] 97 % No Primary Care Physician [facility] 11-21-2024 04:51-0400 Systolic blood pressure 127 mm[Hg] No Primary Care Physician [facility] 11-21-2024 01:32-0400 Body height 175.26 cm No Primary Care Physician [facility] 11-21-2024 01:32-0400 Body mass index (BMI) [Ratio] 34.3 kg/m2 No Primary Care Physician [facility] 11-21-2024 01:32-0400 Body weight 105.4 kg No Primary Care Physician [facility] 11-12-2024 18:03-0400 SaO2% (BldA) [Mass fraction] 99 % KATHIE POWERS [facility] Comment on above: Order Comment: Specimen Type: ARTERIAL B LOOD SPECIMENOrdering Facility: [facility] Address: [address] [place] [address] Performed By: #### A LLBG ####[facility] LABCLIA [id number] [place] [address] [place] 11-10-2024 23:40-0400 Body temperature 97.8 [degF] No Primary Care Physician [facility] 11-10-2024 23:40-0400 Diastolic blood pressure 70 mm[Hg] No Primary Care Physician [facility] 11-10-2024 23:40-0400 Heart rate 110 /min No Primary Care Physician [facility] 11-10-2024 23:40-0400 Respiratory rate 18 /min No Primary Care Physician [facility] 11-10-2024 23:40-0400 SaO2% (BldA) [Mass fraction] 97 % No Primary Care Physician [facility] 11-10-2024 23:40-0400 Systolic blood pressure 116 mm[Hg] No Primary Care Physician [facility] 11-10-2024 04:54-0400 Body mass index (BMI) [Ratio] 36.7 kg/m2 No Primary Care Physician [facility] 11-10-2024 04:54-0400 Body weight 112.8 kg No Primary Care Physician [facility] 11-09-2024 14:30-0400 Body height 175.26 cm No Primary Care Physician [facility] 10-29-2024 01:23-0400 Body temperature 97.4 [degF] No Primary Care Physician [facility] 10-29-2024 01:23-0400 Diastolic blood pressure 54 mm[Hg] No Primary Care Physician [facility] 10-29-2024 01:23-0400 Heart rate 77 /min No Primary Care Physician [facility] 10-29-2024 01:23-0400 Respiratory rate 14 /min No Primary Care Physician [facility] 10-29-2024 01:23-0400 SaO2% (BldA) [Mass fraction] 97 % No Primary Care Physician [facility] 10-29-2024 01:23-0400 Systolic blood pressure 97 mm[Hg] No Primary Care Physician [facility] 10-28-2024 21:43-0400 Body mass index (BMI) [Ratio] 30.4 kg/m2 No Primary Care Physician [facility] 10-28-2024 21:43-0400 Body weight 93.1 kg No Primary Care Physician [facility] 10-28-2024 17:13-0400 Body height 175.01 cm No Primary Care Physician [facility] 10-04-2024 21:45-0500 Diastolic blood pressure 89 mm[Hg] Maurice wen MD Work Phone: [facility] 10-04-2024 21:45-0500 Heart rate 94 /min Maurice Rincon MD Work Phone: [facility] 10-04-2024 21:45-0500 Respiratory rate 18 /min Maurice Rincon MD Work Phone: [facility] 10-04-2024 21:45-0500 SaO2% (BldA) [Mass fraction] 100 % Maurice Rincon MD Work Phone: [facility] 10-04-2024 21:45-0500 Systolic blood pressure 152 mm[Hg] Maurice parada MD Work Phone: [facility] 10-04-2024 12:03-0500 Body temperature 97.59 [degF] Maurice Rincon MD Work Phone: [facility] 10-04-2024 12:03-0500 Body weight 117.48 kg Maurice Rincon MD Work Phone: [facility] 09-29-2024 10:21-0500 Body temperature 97.3 [degF] No Primary Care Physician [facility] 09-29-2024 10:21-0500 Diastolic blood pressure 74 mm[Hg] No Primary Care Physician [facility] 09-29-2024 10:21-0500 Heart rate 81 /min No Primary Care Physician [facility] 09-29-2024 10:21-0500 Respiratory rate 18 /min No Primary Care Physician [facility] 09-29-2024 10:21-0500 Systolic blood pressure 138 mm[Hg] No Primary Care Physician [facility] 09-15-2024 03:49-0500 Body temperature 97.8 [degF] No Primary Care Physician [facility] 09-15-2024 03:49-0500 Diastolic blood pressure 70 mm[Hg] No Primary Care Physician [facility] 09-15-2024 03:49-0500 Heart rate 80 /min No Primary Care Physician [facility] 09-15-2024 03:49-0500 Respiratory rate 17 /min No Primary Care Physician [facility] 09-15-2024 03:49-0500 SaO2% (BldA) [Mass fraction] 96 % No Primary Care Physician [facility] 09-15-2024 03:49-0500 Systolic blood pressure 142 mm[Hg] No Primary Care Physician [facility] 09-14-2024 04:07-0500 Body mass index (BMI) [Ratio] 36.7 kg/m2 No Primary Care Physician [facility] 09-14-2024 04:07-0500 Body weight 112.8 kg No Primary Care Physician [facility] 09-10-2024 14:03-0500 Body height 175.26 cm No Primary Care Physician [facility] 09-07-2024 01:24-0500 Inhaled oxygen concentration 21 % No Primary Care Physician [facility] 09-06-2024 05:00-0500 Inhaled oxygen flow rate 8 L/min No Primary Care Physician [facility] 09-02-2024 15:36-0500 Body weight 104 kg No Primary Care Physician [facility] 09-02-2024 14:54-0500 Body temperature 98.1 [degF] No Primary Care Physician [facility] 09-02-2024 14:54-0500 Diastolic blood pressure 62 mm[Hg] No Primary Care Physician [facility] 09-02-2024 14:54-0500 Heart rate 60 /min No Primary Care Physician [facility] 09-02-2024 14:54-0500 Respiratory rate 18 /min No Primary Care Physician [facility] 09-02-2024 14:54-0500 SaO2% (BldA) [Mass fraction] 99 % No Primary Care Physician [facility] 09-02-2024 14:54-0500 Systolic blood pressure 118 mm[Hg] No Primary Care Physician [facility] 09-02-2024 03:57-0500 Body mass index (BMI) [Ratio] 33.8 kg/m2 No Primary Care Physician [facility] 08-21-2024 16:33-0500 Body temperature 98.5 [degF] No Primary Care Physician [facility] 08-21-2024 16:33-0500 Diastolic blood pressure 78 mm[Hg] No Primary Care Physician [facility] 08-21-2024 16:33-0500 Heart rate 61 /min No Primary Care Physician [facility] 08-21-2024 16:33-0500 Respiratory rate 12 /min No Primary Care Physician [facility] 08-21-2024 16:33-0500 SaO2% (BldA) [Mass fraction] 97 % No Primary Care Physician [facility] 08-21-2024 16:33-0500 Systolic blood pressure 114 mm[Hg] No Primary Care Physician [facility] 08-21-2024 13:52-0500 Body mass index (BMI) [Ratio] 33 kg/m2 No Primary Care Physician [facility] 08-21-2024 13:52-0500 Body weight 101.5 kg No Primary Care Physician [facility] Encounters Encounter Date Encounter Type Care Provider Facility Start: 03-04-2025 ambulatory PACHECO Ward y:[facility] Start: 02-25-2025 End: 02-27-2025 Evaluation and management of inpatient Rick Carlin Facility:[facility] Start: 02-25-2025 ambulatory Niranjan Friend Facility :[facility] Start: 02-24-2025 End: 02-25-2025 ambulatory Josy Elias Facility:[facility] Start: 02-17-2025 Dr. Anurag Irene MD -[facility] In[facility] Work Phone: Start: 02-16-2025 End: 02-17-2025 ambulatory Jae Ash Facility:[facility] Start: 02-16-2025 Evaluation and manag ement of inpatient No Primary Care Physician -Medical Surgical 3 Start: 02-16-2025 Dr. Jae Ash DO -Medical Surgical 3 Work Phone: Start: 02-16-2025 Dr. Jerald Sherwood MD -[facility] Start: 02-16-2025 End: 02-16-2025 ambulatory Jerald Sherwood Facility:[facility] Start: 02-14-2025 ambulatory NONE PHYSICIAN Facility :[facility] Start: 02-13-2025 End: 02-13-2025 No Primary Care Physician -Emergency Department Work Phone: Start: 02-13-2025 End: 02-13-2025 Emergency department patient visit No Primary Care Physician -Emergency Department Start: 02-11-2025 End: 02-11-2025 ambulatory No Primary Care Physician -Ultrasound [facility] Start: 02-11-2025 End: 02-11-2025 Mina Blood DO -Ultrasound [facility] Work Phone: Start: 02-11-2025 End: 02-11-2025 ambulatory Mina Blood Facility:[facility] Start: 02-07-2025 End: 02-08-2025 No Primary [...] of inpatient No Primary Care Physician [facility] Work Phone: Start: 01-28-2025 End: 01-31-2025 Dr. Boone Izquierdo [facility] Work Phone: Start: 01-21-2025 Dr. Anurag Irene MD [facility] Work Phone: Start: 01-20-2025 Dr. Anurag Irene MD [facility] Work Phone: Start: 01-19-2025 Dr. Anurag Irene MD [facility] Work Phone: Start: 01-18-2025 Dr. Anurag Irene MD [facility] Work Phone: Start: 01-17-2025 Dr. Anurag Irene MD [facility] Work Phone: Start: 01-16-2025 Dr. Cielo Tovar MD [facility] In[facility] Work Phone: Start: 01-15-2025 Dr. Cielo Tovar MD [facility] Work Phone: Start: 01-14-2025 Dr. Cielo Tovar MD [facility] Work Phone: Start: 01-13-2025 Dr. Cielo Tovar MD [facility] Work Phone: Start: 01-12-2025 Dr. Cielo Tovar MD [facility] Work Phone: Start: 01-11-2025 Dr. Jefferson Malave MD [facility] Start: 01-11-2025 Dr. Cielo Tovar MD [facility] Work Phone: Start: 01-11-2025 Dr. Bola Meraz DO -[facility] Start: 01-10-2025 Dr. Cielo Tovar MD - [place] [facility] Work Phone: Start: 01-09-2025 ambulatory Yaritza Leo Facility:[facility] Start: 01-09-2025 End: 01-21-2025 Evaluation and management of inpatient No Primary Care Physician [facility] Work Phone: Start: 01-09-2025 End: 01-21-2025 Dr. Yaritza Leo DO -Intensive Care Unit Work Phone: Start: 01-05-2025 Dr. Hill Acuña MD - [facility] Work Phone: Start: 01-04-2025 Dr. Hill Acuña MD - [facility] Work Phone: Start: 01-03-2025 Dr. Hill Acuña MD - [facility] Work Phone: Start: 01-02-2025 ambulatory Buster Fuchs Fac ility:[facility] Start: 01-02-2025 End: 01-05-2025 Evaluation and management of inpatient No Primary Care Physician [facility] Work Phone: Start: 01-02-2025 End: 01-05-2025 Dr. Buster Fuchs MD -Progressive Care Unit Work Phone: Start: 12-30-2024 End: 12-30-2024 No Primary Care Physician -Emergency Department Work Phone: Start: 12-30-2024 End: 12-30-2024 Emergency department patient visit No Primary Care Physician [facility] Work Phone: Start: 12-26-2024 End: 12-26-2024 No Primary Care Physician -Emergency Department Work Phone: Start: 12-26-2024 End: 12-26-2024 Emergency department patient visit No Primary Care Physician [facility] Work Phone: Start: 12-15-2024 End: 12-15-2024 ambulatory No Primary Care Physician [facility] Work Phone: Start: 12-15-2024 End: 12-15-2024 [facility] ACCESS ANALYST-C -Ultrasound [facility] Work Phone: Start: 12-15-2024 End: 12-15-2024 ambulatory [facility] Facility:[facility] Start: 12-07-2024 End: 12-10-2024 ambulatory Eva Pichardo MD Work Phone: Urology Start: 12-07-2024 End: 12-07-2024 [facility] ACCESS ANALYST-C [place] Start: 12-07-2024 End: 12-07-2024 ambulatory [facility] Facility:[facility] Start: 12-02-2024 Dr. Hill Acñua MD -[facility] Work Phone: Start: 12-01-2024 Dr. Hill Acuña MD - [facility] Work Phone: Start: 11-30-2024 Dr. Hill Acuña MD - [facility] Work Phone: Start: 11-29-2024 Dr. Hill Acuña MD - [facility] Work Phone: Start: 11-28-2024 ambulatory Kathie Powers Facility:[facility] Start: 11-28-2024 End: 12-02-2024 Evaluation and management of inpatient Kathie Powers Facility:[facility] Start: 11-28-2024 End: 12-02-2024 Dr. Hill Acuña MD -Progressive Care Unit Work Phone: Start: 11-25-2024 Dr. Anurag Irene MD -[facility] Inpatient Physicians Work Phone: Start: 11-24-2024 Dr. Anurag Irene MD -[facility] Inpatient Physicians Work Phone: Start: 11-23-2024 ambulatory No Primary Car e Physician Facility:[facility] Start: 11-23-2024 End: 11-25-2024 Evaluation and management of inpatient No Primary Care Physician Facility:[facility] Start: 11-23-2024 End: 11-25-2024 Dr. Anurag Irene MD -Medical Surgical 3 Work Phone: Start: 11-22-2024 Dr. Anurag Irene MD -[facility] Inpatient Physicians Work Phone: Start: 11-21-2024 ambulatory No Primary Car e Physician Facility:[facility] Start: 11-21-2024 observation encounter No Prima ry Care Physician [facility] Work Phone: Start: 11-21-2024 Dr. Jae Ash DO -Medical Surgical 3 Work Phone: Start: 11-18-2024 Patient encounter status Jeremi Abreu RN Work Phone: [facility] Work Phone: Start: 11-18-2024 End: 11-18-2024 Telephone encounter Jeremi Abreu RN Work Phone: [facility] Center Comment on above: Outcome Liver Transp lant Selection Committee Start: 11-15-2024 End: 11-15-2024 Evaluation and management of inpatient Izabela Castellanosn DDS Work Phone: Dentistry Comment on above: Liver transplant can didate (Primary Dx); Pre-operative clearance Start: 11-15-2024 End: 11-15-2024 Preoperative state Izabela Estuardo Castellanosn DDS Work Phone: [facility] Start: 11-15-2024 End: 11-15-2024 Social Work Marah Arauz ELECTRICAL ENGINEERING TECHNOLOGIST Work Phone: Transplant Center Start: 11-12-2024 End: 11-12-2024 Patient encounter status Lizett Guzman [facility] Start: 11-12-2024 End: 11-12-2024 Orders Only Liver Txp Coordinator Work Phone: Transplant Center Comment on above: Metabolic dysfunctio n-associated steatohepatitis (MASH) (Primary Dx) Transplant Evaluatio n Consent Patient Education (T ransplant) Liver transplant can didate (Primary Dx); Metabolic dysfunction-associated steatohepatitis (MASH) Start: 11-11-2024 End: 11-18-2024 Evaluation and management of inpatient KATHIE POWERS Facility:[facility] Start: 11-10-2024 Dr. Kathie Powers MD [...] Phone: Start: 11-04-2024 Dr. Hill Acuña MD - [facility] Work Phone: Start: 11-03-2024 Dr. Hill Acuña MD - [facility] Work Phone: Start: 11-02-2024 Dr. Hill Acuña MD - [facility] Work Phone: Start: 11-01-2024 Dr. Hill Acuña MD - [facility] Work Phone: Start: 11-01-2024 [facility] Start: 10-31-2024 Dr. Buster Fuentes In[facility] Physicians Work Phone: Start: 10-30-2024 [facility] Start: 10-30-2024 Dr. Buster Fuchs MD [facility] Work Phone: Start: 10-29-2024 Dr. Bola Meraz DO -[facility] Start: 10-29-2024 ambulatory No Primary Car e Physician Facility:[facility] Start: 10-29-2024 End: 11-11-2024 Evaluation and management of inpatient Dr. Hill Caro DO -Intensive Care Unit Work Phone: Start: 10-29-2024 End: 11-11-2024 Dr. Kathie Powers MD -Progressive Care Unit Work Phone: Start: 10-19-2024 ambulatory No Primary Car e Physician Facility:[facility] Start: 10-04-2024 End: 10-04-2024 Emergency department patient visit MAURICE RINCON [facility] Emergency Medicine Comment on above: Other ascites (Prima ry Dx); Abdominal pain, generalized; Other cirrhosis of liver; Peripheral edema; Coagulopathy (Multi); Hyperbilirubinemia; Cirrhosis of liver with ascites, unspecified hepatic cirrhosis type (Multi) Start: 09-29-2024 ambulatory No Primary Car e Physician Facility:[facility] Start: 09-29-2024 Non-patient / Non-visit Jasmine nunez ACCESS ANALYST-C -[facility] Start: 09-29-2024 Jasmine Morocho ACCESS ANALYST-C - [facility] Start: 09-29-2024 End: 09-29-2024 ambulatory No Primary Care Physician [facility] Work Phone: Start: 09-29-2024 End: 09-29-2024 Patient encounter procedure No Primary Care Physician -Ultrasound, [facility] Work Phone: Start: 09-29-2024 End: 09-29-2024 No Primary Care Physician -Ultrasound, [facility] Work Phone: Start: 09-29-2024 End: 09-29-2024 ambulatory No Primary Care Physician Facility:[facility] Start: 09-14-2024 Non-patient / Non-visit Dr. Boone floyd [facility] Work Phone: Start: 09-14-2024 Dr. Boone Izquierdo DO [facility] Inpatient Physicians Work Phone: Start: 09-13-2024 Non-patient / Non-visit Dr. Boone floyd [facility] Work Phone: Start: 09-13-2024 Dr. Boone Izquierdo [facility] Inpatient Physicians Work Phone: Start: 09-12-2024 Non-patient / Non-visit Dr. Noonan [facility] Work Phone: Start: 09-12-2024 Dr. Jae Ash [facility] Work Phone: Start: 09-11-2024 Non-patient / Non-visit Dr. Noonan [facility] Work Phone: Start: 09-11-2024 Dr. Jae Ash [facility] Work Phone: Start: 09-10-2024 Non-patient / Non-visit Dr. Noonan [facility] Work Phone: Start: 09-10-2024 Dr. Jae Ash [facility] Work Phone: Start: 09-09-2024 Non-patient / Non-visit Dr. Noonan [facility] Work Phone: Start: 09-09-2024 Dr. Jae Ash [facility] Work Phone: Start: 09-08-2024 Non-patient / Non-visit Dr. Anurag Irene MD [facility] In[facility] Work Phone: Start: 09-08-2024 Dr. Anurag Murray [facility] Inpatient Physicians Work Phone: Start: 09-07-2024 Non-patient / Non-[facility] Work Phone: Start: 09-07-2024 Dr. Anurag Murray [facility] Inpatient Physicians Work Phone: Start: 09-06-2024 Non-patient / Non-[facility] Work Phone: Start: 09-06-2024 Dr. Anurag Murray [facility] Inpatient Physicians Work Phone: Start: 09-05-2024 ambulatory No Primary Car e Physician Facility:[facility] Start: 09-05-2024 End: 09-15-2024 Evaluation and management of inpatient Dr. Boone Izquierdo -Progressive Care Unit Work Phone: Start: 09-05-2024 End: 09-15-[address] [facility] Work [facility]: Start: 09-02-2024 Non-patient / Non-visit Dr. Lissette Carlin [facility] Work Phone: Start: 09-02-2024 Dr. Rick gutierrez [facility] Work Phone: Start: 09-01-2024 Non-patient / Non-visit Niranjan Frie nd DO -[facility] Start: 09-01-2024 Niranjan Friend DO -[facility] Start: 09-01-2024 Non-patient / Non-visit Dr. Lissette Carlin [facility] Work Phone: Start: 09-01-2024 Dr. Rick gutierrez [facility] Work Phone: Start: 08-31-2024 Non-patient / Non-visit Niranjan Frie nd DO -[facility] Start: 08-31-2024 Niranjan Friend DO -[facility] Start: 08-31-2024 Non-patient / Non-visit Dr. Lissette Carlin [facility] Work Phone: Start: 08-31-2024 Dr. Rick gutierrez [facility] Work Phone: Start: 08-31-2024 Non-patient / Non-visit Dr. Bola mills DO -[facility] Start: 08-31-2024 Dr. Bola Meraz DO -[facility] Start: 08-30-2024 Non-patient / Non-visit Niranjan Frie nd DO -[facility] Start: 08-30-2024 Niranjan iL DO -[facility] Start: 08-30-2024 Non-patient / Non-visit Dr. Lissette Carlin [facility] Work Phone: Start: 08-30-2024 Dr. Rick gutierrez [facility] Work Phone: Start: 08-30-2024 Non-patient / Non-visit Dr. Bola mills DO [facility] Start: 08-30-2024 Dr. Bola Meraz DO [facility] Start: 08-29-2024 ambulatory Rick Carlin Facilit [...] Physician Start: 11-28-2024 Assay of lactate No [facility] Care Physician Start: 11-28-2024 Urine [...] Comment: Speci men Type: BLOOD SPECIMENOrdering Facility: [facility] Address: [address] [place] [address] Performed By: #### T SCR ####CC MAIN BLOOD BANKIA [id number] [address] [place] Start: 11-16-2024 End: 11-16-2024 Oscar Abreu RN Work Phone: Start: 11-15-2024 Antibody screen KATHIE P IERCE Comment on above: Order Comment: Speci men Type: BLOOD SPECIMENOrdering Facility: [facility] Address: [address] [place] [address] Performed By: #### T SCR ####CC MAIN BLOOD BANKCLIA [id number] [place] [address] [place] Start: 11-13-2024 Lipid 1996 panel - S sandie or Plasma Marah SAVAGE Work Phone: Start: 11-12-2024 Antibody screen KATHIE P IERCE Comment on above: Order Comment: Speci men Type: BLOOD SPECIMENOrdering Facility: [facility] Address: [address] [place] [place] [address] Performed By: #### T SCR ####CC MAIN BLOOD BANKCLIA [id number] [facility] [id number] [place] Start: 11-10-2024 Urine microscopy: red [...] Physician Start: 11-09-2024 Assay of lactate No [facility] Care Physician Start: 11-08-2024 Serum inorganic phos phate measurement No Primary Care Physician Start: 11-08-2024 Triacylglycerol lipa se measurement No Primary Care Physician Start: 11-03-2024 Myelocyte percent differential count No Primary Care Physician Start: 10-30-2024 Clostridium difficil e detection No Primary Care Physician Start: 10-30-2024 Lactoferrin measurement No Primary Care Physician Start: 10-30-2024 Nucleic acid assay No [facility] Start: 10-30-2024 Ova OR parasites [...] Cell count misc body fluids w/differential count Joeyen Huang DO Work Phone: Start: 10-04-2024 Cell count panel - Body fluid Joeyen Huang DO Work Phone: Start: 10-04-2024 Prothrombin time Yessenia zurita Sneha PA-C Work Phone: Start: 10-04-2024 Ct abdomen & pelvis w/contrast material Sriram Sneha PA-C Work Phone: Start: 10-04-2024 Basic metabolic pane l calcium total Sriram Colesamina PA-C Work Phone: Start: 09-29-2024 Centesis No [...] Physician Start: 09-05-2024 Assay of lactate No [facility] Care Physician Start: 09-05-2024 Folic [...] DTaP,Tdap,Td Vaccine (2 - Td or Tdap) [facility] Start: 11-17-2029 Prostate specific antigen measurement Prostate Cancer Screening Discussion [facility] Start: 11-13-2029 Lipid panel Lipid Screening [facility] Start: 11-19-2027 Diabetes Screening Diabetes Screening [facility] Start: 11-17-2027 Diabetes Screening Diabetes Screening [facility] Start: 11-15-2027 Diabetes Screening Diabetes Screening [facility] Start: 11-13-2027 Diabetes Screening Diabetes Screening [facility] Start: 11-18-2025 Creatinine measurement Serum Creatinine [facility] Start: 11-16-2025 Creatinine measurement Serum Creatinine [facility] Start: 11-16-2025 Screening for malignant neoplasm of colon [facility] Start: 11-15-2025 Creatinine measurement Serum Creatinine [facility] Start: 11-12-2025 Creatinine measurement Serum Creatinine [facility] Start: 05-16-2025 Hepatitis A Vaccine (2 of 2 - Risk 2-dose series) Hepatitis A Vaccine (2 of 2 - Risk 2-dose series) [facility] Start: 03-02-2025 End: 03-02-2025 Patient encounter procedure 03/02/2025 2:20 PM EDT Office Visit Family Medicine [address] [address] [place] [address] [place], [place] [id number] Hospital discharge, diabetes mx, need for repeat vaccines, and consideration of CT chest [facility] [place] Comment on above: Hospital discharge, diabetes mx, need fo r repeat vaccines, and consideration of CT chest Start: 02-17-2025 [facility] Start: 02-17-[address] [facility] Start: 02-17-[address] [facility] Start: 02-17-2025 Referral to occupational therapist [facility] Start: 02-17-[address] [facility] Start: 02-17-[address] [facility] Start: 02-16-2025 Application of intermittent pneumatic compression device [facility] Start: 02-16-[address] [facility] Start: 02-16-2025 Assessment of risk of venous thromboembolism [facility] Start: 02-16-[address] [facility] Start: 02-16-2025 Insertion of catheter into peripheral vein [facility] Start: 02-16-2025 Measuring intake and output [facility] Start: 02-16-[address] [facility] Start: 02-16-2025 Providing care according to standard [facility] Start: 02-16-2025 Referral to gastroenterology service [facility] Start: 02-16-[address] [facility] Start: 02-16-2025 [facility] Start: 02-16-2025 Care of central venous catheter [facility] Start: 02-16-2025 Following clinical pathway protocol [facility] Start: 02-16-[address] [facility] Start: 02-16-2025 Hospital admission, emergency, from emergency room, medical nature [facility] Start: 02-16-[address] [facility] Start: 02-16-[address] [facility] Start: 02-16-2025 Patient referral to dietitian [facility] Start: 02-13-2025 [facility] Start: 02-08-[address] [facility] Start: 02-08-2025 End: 02-08-2025 [facility] Start: 02-02-2025 End: 02-02-2025 Patient encounter procedure 02/02/2025 9:20 AM EDT Office Visit Internal Medicine [place] [address] [place] [address] Ray Vega MD [address] [place] [address] est care [facility] [place] Comment on above: est care Start: 01-31-[address] [facility] Start: 01-31-[address] [facility] Start: 01-31-2025 [facility] Start: 01-29-2025 [facility] Start: 01-28-[address] [facility] Start: 01-28-2025 Application of intermittent pneumatic compression device [facility] Start: 01-28-2025 Following clinical pathway protocol [facility] Start: 01-28-2025 Assessment of risk of venous thromboembolism [facility] Start: 01-28-2025 Care regimes management [facility] Start: 01-28-2025 Documentation procedure [facility] Start: 01-28-2025 Insertion of catheter into peripheral vein [facility] Start: 01-28-2025 Notification of physician [facility] Start: 01-28-2025 Providing care according to standard [facility] Start: 01-28-2025 Provision of activity privileges [facility] Start: 01-28-2025 Referral to occupational therapist [facility] Start: 01-28-[address] [facility] Start: 01-28-2025 Speech therapy assessment [facility] Start: 01-28-2025 End: 01-28-2025 [facility] Start: 01-28-[address] [facility] Start: 01-28-2025 End: 01-28-2025 [facility] Start: 01-28-2025 End: 01-28-2025 [facility] Start: 01-28-2025 Patient referral to dietitian [facility] Start: 01-21-[address] [facility] Start: 01-18-2025 End: 01-18-2025 Microbial culture, body fluid [facility] Start: 01-18-2025 Care planning and problem solving actions [facility] Start: 01-18-[address] [facility] Start: 01-17-2025 [facility] Start: 01-16-2025 [facility] Start: 01-15-2025 [facility] Start: 01-14-[address] [facility] Start: 01-14-2025 [facility] Start: 01-13-2025 Administration of blood product [facility] Start: 01-13-2025 [facility] Start: 01-12-2025 [facility] Start: 01-11-2025 Application of intermittent pneumatic compression device [facility] Start: 01-11-2025 Referral to general surgeon [facility] Start: 01-11-2025 [facility] Start: 01-10-2025 Care planning and problem solving actions [facility] Start: 01-09-2025 Assessment of risk of venous thromboembolism [facility] Start: 01-09-[address] [facility] Start: 01-09-2025 Catheterization of vein [facility] Start: 01-09-[address] [facility] Start: 01-09-2025 Insertion of catheter into peripheral vein [facility] Start: 01-09-2025 Measuring intake and output [facility] Start: 01-09-2025 Notification of physician [facility] Start: 01-09-2025 Patient referral to dietitian [facility] Start: 01-09-2025 Providing care according to standard [facility] Start: 01-09-2025 Referral to occupational therapist [facility] Start: 01-09-[address] [facility] Start: 01-09-2025 Vital signs measurements [facility] Start: 01-09-2025 [facility] Start: 01-09-2025 End: 01-09-2025 Following clinical pathway protocol [facility] Start: 01-09-2025 Bacterial nucleic acid assay [facility] Start: 01-09-[address] [facility] Start: 01-09-[address] [facility] Start: 01-09-2025 Hospital admission, emergency, from emergency room, medical nature [facility] Start: 01-09-2025 End: 01-09-2025 [facility] Start: 01-09-[address] [facility] Start: 01-05-[address] [facility] Start: 01-04-2025 [facility] Start: 01-03-2025 End: 01-03-2025 [facility] Start: 01-03-2025 End: 01-03-2025 Care regimes management [facility] Start: 01-03-2025 Notification of physician [facility] Start: 01-03-2025 [facility] Start: 01-02-2025 Application of intermittent pneumatic compression device [facility] Start: 01-02-[address] [facility] Start: 01-02-2025 Assessment of risk of venous thromboembolism [facility] Start: 01-02-2025 Care regimes management [facility] Start: 01-02-2025 Insertion of catheter into peripheral vein [facility] Start: 01-02-2025 Measuring intake and output [facility] Start: 01-02-2025 Notification of physician [facility] Start: 01-02-2025 Providing care according to standard [facility] Start: 01-02-2025 Referral to occupational therapist [facility] Start: 01-02-[address] [facility] Start: 01-02-2025 End: 01-02-2025 [facility] Start: 01-02-[address] [facility] Start: 01-02-[address] [facility] Start: 01-02-2025 Hospital admission, emergency, from emergency room, medical nature [facility] Start: 01-02-2025 End: 01-02-2025 [facility] Start: 01-02-[address] [facility] Start: 01-02-2025 Patient referral to dietitian [facility] Start: 12-30-[address] [facility] Start: 12-30-2024 Assay of troponin quantitative [facility] Start: 12-30-2024 Basic metabolic panel calcium total [facility] Start: 12-30-2024 Blood count complete auto&auto difrntl wbc [facility] Start: 12-30-2024 Culture bacterial quanttative colony count urine [facility] Start: 12-30-2024 Culture bct isol&prsmptv id isolate ea urine [facility] Start: 12-30-2024 Ecg routine ecg w/least 12 lds trcg only w/o i&r [facility] Start: 12-30-2024 Emergency department visit high/urgent severity [facility] Start: 12-30-2024 Gluc bld gluc mntr dev cleared fda spec home use [facility] Start: 12-30-2024 Iv infusion hydration each additional hour [facility] Start: 12-30-2024 Iv infusion therapy/prophylaxis /dx 1st to [address] [facility] Start: 12-30-2024 Radiologic exam chest [address] [facility] Start: 12-30-2024 Urnls dip stick/tablet reagent auto microscopy [facility] Start: 12-30-2024 [facility] Start: 12-30-2024 End: 12-30-2024 [facility] Start: 12-29-2024 End: 12-29-2024 Patient encounter procedure Endocrinology Comment on above: Diabetes maangement Diabetes maangement/ LVM OF SOONER APPOINTMENT 11/21 Start: 12-26-2024 [facility] Start: 12-26-2024 End: 12-26-2024 [facility] Start: 12-23-2024 End: 12-23-2024 Patient encounter procedure 12/23/2024 9:45 AM EDT Office Visit Vascular Medicine [address] [place] [address] Pamella Frances, STAMPER BLOCKER.CHILD DAYCARE WORKER [address] [place] [address] HOSPITAL FOLLOW UP Vascular Medicine Comment on above: HOSPITAL FOLLOW UP Start: 12-12-2024 Hepatitis B Vaccine (2 of 2 - CpG 2-dose series) Hepatitis B Vaccine (2 of 2 - CpG 2-dose series) [facility] Start: 12-07-2024 End: 12-07-2024 Patient encounter procedure 12/07/2024 3:45 PM EDT Office Visit Urology [address] [address] Eva Pichardo MD [address] [place] [address] L ureteral stent, s/p staghorn calculi Urology Comment on above: L ureteral stent, s/p staghorn calculi Start: 12-07-2024 End: 12-07-2024 Patient encounter procedure 12/07/2024 11:20 AM EDT Office Visit [facility] [address] [place] [address] Ksenia Hoyos, STAMPER BLOCKER.CHILD DAYCARE WORKER [address] [place] [address] Hospital discharge, diabetes mx, need for repeat vaccines, and consideration of CT chest [facility] Comment on above: Hospital discharge, diabetes mx, need fo r repeat vaccines, and consideration of CT chest Start: 12-02-[address] [facility] Start: 12-01-[address] [facility] Start: 11-29-2024 [facility] Start: 11-28-[address] [facility] Start: 11-28-2024 Application of intermittent pneumatic compression device [facility] Start: 11-28-2024 Following clinical pathway protocol [facility] Start: 11-28-2024 Assessment of risk of venous thromboembolism [facility] Start: 11-28-2024 Care regimes management [facility] Start: 11-28-2024 Insertion of catheter into peripheral vein [facility] Start: 11-28-2024 Measuring intake and output [facility] Start: 11-28-2024 Notification of physician [facility] Start: 11-28-2024 Providing care according to standard [facility] Start: 11-28-2024 Provision of activity privileges [facility] Start: 11-28-2024 Referral to occupational therapist [facility] Start: 11-28-[address] [facility] Start: 11-28-2024 End: 11-28-2024 [facility] Start: 11-28-[address] [facility] Start: 11-28-[address] [facility] Start: 11-28-2024 Patient referral to dietitian [facility] Start: 11-25-[address] [facility] Start: 11-24-2024 Administration of blood product [facility] Start: 11-23-[address] [facility] Start: 11-22-2024 [facility] Start: 11-21-2024 Care regimes management [facility] Start: 11-21-2024 Notification of physician [facility] Start: 11-21-2024 Following clinical pathway protocol [facility] Start: 11-21-[address] [facility] Start: 11-21-2024 Assessment of risk of venous thromboembolism [facility] Start: 11-21-2024 Insertion of catheter into peripheral vein [facility] Start: 11-21-2024 Measuring intake and output [facility] Start: 11-21-2024 Providing care according to standard [facility] Start: 11-21-2024 Referral to occupational therapist [facility] Start: 11-21-[address] [facility] Start: 11-21-2024 End: 11-21-2024 [facility] Start: 11-21-[address] [facility] Start: 11-21-[address] [facility] Start: 11-21-2024 Hospital admission, emergency, from emergency room, medical nature [facility] Start: 11-21-2024 End: 11-21-2024 [facility] Start: 11-21-[address] [facility] Start: 11-18-2024 End: 11-18-2024 Patient encounter procedure 11/18/2024 3:30 PM EDT Office Visit Cardiology [address] [place] [address] G81-25; Liver Tx Evaluation; CONTACT PRECAUTIONS - C-Diff; last of the day Cardiology Comment on above: G81-25; Liver Tx Evaluation; CONTACT PRECAUTIONS - C-Diff; last of the day Start: 11-17-2024 End: 11-17-2024 Patient encounter procedure Pulmonary Medicine Comment on above: C-diff precuations/RA-2L/Reg WC Start: 11-15-2024 End: 11-15-2024 Patient encounter procedure 11/15/2024 1:15 PM EDT Office Visit Dentistry [address] [address] Izabela Harvey, DDS [address] [place] [address] BEDSIDE - TRANSPLANT [facility] - [id number] - Consult Placed 11/12/24 Dentistry Comment on above: BEDSIDE - TRANSPLANT [facility] - G081-25 [id number] [phone] - Consult Placed 11/12/24 Start: 11-10-[address] [facility] Start: 11-09-[address] [facility] Start: 11-09-2024 Referral to gastroenterology service [facility] Start: 11-09-2024 Glucose measurement, body fluid [facility] Start: 11-08-2024 Urinary bladder residual urine study [facility] Start: 11-08-2024 [facility] Start: 11-05-2024 Removal of urinary catheter [facility] Start: 11-04-2024 [facility] Start: 10-31-2024 [facility] Start: 10-30-2024 Attention to flatus tube [facility] Start: 10-30-2024 Referral to gastroenterology service [facility] Start: 10-29-2024 Insertion of nasogastric tube [facility] Start: 10-29-2024 Bacteria identified in Blood by Culture Blood Culture [facility] Start: 10-29-[address] [facility] Start: 10-29-2024 Application of intermittent pneumatic compression device [facility] Start: 10-29-2024 Following clinical pathway protocol [facility] Start: 10-29-[address] [facility] Start: 10-29-2024 Catheterization of vein [facility] Start: 10-29-[address] [facility] Start: 10-29-2024 Notification of physician [facility] Start: 10-29-2024 Vital signs measurements [facility] Start: 10-29-2024 [facility] Start: 10-29-2024 End: 10-29-[address] [facility] Start: 10-29-2024 Clostridioides difficile DNA [Presence] in Unspecified specimen by ANANTH with probe detection [facility] Start: 10-29-2024 Complete ultrasound of kidneys and bladder Kidney and Bladder [facility] Start: 10-29-2024 Lactoferrin [Presence] in Stool by Immunoassay [facility] Start: 10-29-[address] [facility] Start: 10-29-[address] [facility] Start: 10-29-2024 End: 10-29-2024 Hospital admission, emergency, from emergency room, medical nature [facility] Start: 10-29-2024 End: 10-29-2024 [facility] Start: 10-29-2024 Patient referral to dietitian [facility] Start: 10-28-2024 [facility] Start: 10-28-2024 Bacteria identified in Urine by Culture Urine Culture [facility] Start: 09-14-[address] [facility] Start: 09-06-[address] [facility] Start: 09-06-2024 Referral to occupational therapist [facility] Start: 09-06-2024 Referral to behavioral health assistant [facility] Start: 09-06-[address] [facility] Start: 09-06-2024 Care planning and problem solving actions [facility] Start: 09-06-2024 [facility] Start: 09-05-2024 Application of intermittent pneumatic compression device [facility] Start: 09-05-2024 Continuous positive airway pressure ventilation treatment [facility] Start: 09-05-[address] [facility] Start: 09-05-2024 Care regimes management [facility] Start: 09-05-2024 Catheterization of vein [facility] Start: 09-05-[address] [facility] Start: 09-05-2024 Notification of physician [facility] Start: 09-05-2024 Vital signs measurements [facility] Start: 09-05-2024 End: 09-05-2024 [facility] Start: 09-05-2024 Following clinical pathway protocol [facility] Start: 09-05-[address] [facility] Start: 09-05-2024 Patient referral to [facility] Start: 09-02-[address] [facility] Start: 08-31-2024 Care planning and problem solving actions [facility] Start: 08-30-2024 [facility] Start: 08-29-2024 Following clinical pathway protocol [facility] Start: 08-29-2024 Assessment of risk of venous thromboembolism [facility] Start: 08-29-2024 Care regimes management [facility] Start: 08-29-[address] [facility] Start: 08-29-[address] [facility] Start: 08-29-2024 Insertion of catheter into peripheral vein [facility] Start: 08-29-2024 Measuring intake and output [facility] Start: 08-29-2024 Notification of physician [facility] Start: 08-29-[facility]24 Providing care according to standard [facility] Start: 08-29-2024 Provision of activity privileges [facility] Start: 08-29-2024 Referral to gastroenterology service [facility] Start: 08-29-2024 Referral to behavioral health assistant [facility] Start: 08-29-2024 Referral to occupational therapist [facility] Start: 08-29-[address] [facility] Start: 08-29-2024 Vital signs measurements [facility] Start: 08-29-2024 End: 08-29-2024 [facility] Start: 08-29-[address] [facility] Start: 08-21-2024 [facility] Start: 04-04-2024 COVID-19 Vaccine ( season) COVID-19 Vaccine ( season) [facility] Start: 04-04-2024 Influenza vaccination Influenza Vaccine (#1) [facility] Start: 2021 Prostate specific antigen measurement Prostate Cancer Screening Discussion [facility] Start: 2016 Zoster Vaccines (1 of 2) Zoster Vaccines (1 of 2) [facility] Start: 2011 Screening for malignant neoplasm of colon [facility] Start: 2001 Lipid panel Lipid Screening [facility] Start: 1988 DTaP/Tdap/Td Vaccines (1 - Tdap) DTaP/Tdap/Td Vaccines (1 - Tdap) [facility] Start: 1985 Hepatitis A Vaccine (1 of 2 - Risk 2-dose series) Hepatitis A Vaccine (1 of 2 - Risk 2-dose series) [facility] Start: 1985 Hepatitis A Vaccines (1 of 2 - Risk 2-dose series) Hepatitis A Vaccines (1 of 2 - Risk 2-dose series) [facility] Start: 1985 Hepatitis B Vaccine (1 of 3 - 19+ 3-dose series) Hepatitis B Vaccine (1 of 3 - 19+ 3-dose series) [facility] Start: 1985 Hepatitis B Vaccines (1 of 3 - 19+ 3-dose series) Hepatitis B Vaccines (1 of 3 - 19+ 3-dose series) [facility] Start: 1985 Pneumococcal vaccination Pneumococcal Vaccine (1 of 2 - PCV) [facility] Start: 1985 Pneumococcal Vaccine: 50+ (1 of 2 - PCV) Pneumococcal Vaccine: 50+ (1 of 2 - PCV) [facility] Start: 1985 Shingrix Vaccine (1 of 2) Shingrix Vaccine (1 of 2) [facility] Start: 1985 Urine microalbumin profile DTaP,Tdap,Td Vaccine (1 - Tdap) [facility] Start: 1984 Annual PCP Team Chronic Disease Visit Annual PCP Team Chronic Disease Visit [facility] Start: 1984 Anxiety Screening Anxiety Screening [facility] Start: 1984 Depression Screening Depression Screening [facility] Start: 1984 Hepatitis C screening Hepatitis C Screening [facility] Start: 1984 HIV screening HIV Screening [facility] Start: 1976 Glaucoma screening Diabetes: Retinopathy Screening [facility] Start: 1967 MMR Vaccines (1 of 1 - Standard series) MMR Vaccines (1 of 1 - Standard series) [facility] Start: 1966 Hemoglobin A1c measurement Diabetes: Hemoglobin A1C [facility] Start: 1966 HIV screening HIV Screening [facility] Start: 1966 Lipid panel Lipid Panel [facility] Start: 1966 Screening for malignant neoplasm of colon [facility] Start: 1965 Urine screening for protein Diabetes: Urine Protein Screening [facility] Start: 1965 Yearly Adult Physical Yearly Adult Physical [facility] Alanine aminotransfe rase [Enzymatic activity/volume] in Serum or Plasma [facility] End: 10-04-2024 Albumin [Mass/volume] in Body fluid [facility] Work Phone: Comment on above: Once (Lab) for 1 Occurrences starting until 10/04/2024 Once for 1 Occurrenc es starting 10/04/2024 until 10/04/2024 Albumin [Mass/volume ] in Serum or Plasma [facility] Alkaline phosphatase [Enzymatic activity/volume] in Serum or Plasma [facility] Anion gap in Serum o r Plasma [facility] End: 10-04-2024 Bacteria identified in Body fluid by Culture [facility] Work Phone: Comment on above: Once (Lab) for 1 Occurrences starting until 10/04/2024 Bilirubin, total measurement [facility] BUN/Creatinine ratio [facility] Calcium [Mass/volume ] in Serum or Plasma [facility] Carbon dioxide, tota l [Moles/volume] in Central venous blood [facility] CBC W Auto Different ial panel - Blood [facility] End: 10-04-2024 Clostridioides difficile toxin A+B tcdA+tcdB genes [Presence] in Stool by ANANTH with probe detection C. difficile, PCR Microbiology STAT STAT (Lab) for 1 Occurrences starting 10/04/2024 until 10/04/2024 [facility] Work Phone: Comment on above: STAT (Lab) for 1 Occurrences starting until 10/04/2024 Comprehensive metabo lic 2000 panel - Serum or Plasma [facility] Creatinine [Mass/vol ume] in Serum or Plasma [facility] Cytology report of B carmelina fluid Cyto stain [facility] Erythrocyte mean corpuscular volume determination [facility] End: 10-04-2024 Extra Urine Toney Tube Extra Urine Toney Tube Lab Timed Once for 1 Occurrences starting 10/04/2024 until 10/04/2024 [facility] Work Phone: Comment on above: Once for 1 Occurrences starting 10/05/19 until 10/04/2024 End: 10-04-2024 Glucose [Mass/volume] in Body fluid [facility] Work Phone: Comment on above: Once (Lab) for 1 Occurrences starting until 10/04/2024 Once for 1 Occurrenc es starting 10/04/2024 until 10/04/2024 Glucose [Mass/volume ] in Serum or Plasma [facility] Glucose [Mass/volume ] in Serum or Plasma [facility] Hematocrit [Volume Fraction] of Blood [facility] Hemoglobin [Mass/vol ume] in Blood [facility] End: 10-04-2024 Hemoglobin.gastrointestin al.lower [Presence] in Stool by Immunoassay Fecal Occult Blood Immunoassy Microbiology STAT Once (Lab) for 1 Occurrences starting 10/04/2024 until 10/04/2024 [facility] Work Phone: Comment on above: Once (Lab) for 1 Occurrences starting until 10/04/2024 Hepatitis A virus Ig M Ab [Presence] in Serum [facility] Hepatitis B core ant ibody measurement, IgM type [facility] Hepatitis B surface antigen measurement [facility] Hepatitis C antibody measurement [facility] INR in Blood by Coagulation assay [facility] End: 10-04-2024 Lactate dehydrogenase [Enzymatic activity/volume] in Body fluid by Lactate to pyruvate reaction [facility] Work Phone: Comment on above: Once (Lab) for 1 Occurrences starting until 10/04/2024 Once for 1 Occurrenc es starting 10/04/2024 until 10/04/2024 Lactate dehydrogenas e [Enzymatic activity/volume] in Body fluid by Pyruvate to lactate reaction [facility] Lactic acid measurement [facility] Lactic acid measurement [facility] Leukocytes [#/volume ] in Blood [facility] Magnesium measurement [facility] Mean corpuscular hemoglobin concentration determination [facility] Mean corpuscular hemoglobin determination [facility] Measurement of renal function [facility] Neutrophil count [facility] Neutrophil percent differential count [facility] End: 10-04-2024 Non-gynecological cytology method study Cytology (Non-Gynecologic) Pathology and Cytology Routine Once (Lab) for 1 Occurrences starting 10/04/2024 until 10/04/2024 [facility] Service Area Work Phone: Comment on above: Once (Lab) for 1 Occurrences starting until 10/04/[address] parasites identification [facility] Work Phone: Patient referral [facility] Work Phone: End: 10-04-2024 pH of Body fluid [facility] Work Phone: Comment on above: Once (Lab) for 1 Occurrences starting until 10/04/2024 Platelets [#/volume] in Blood [facility] Potassium measurement [facility] End: 10-04-2024 Protein [Mass/volume] in Body fluid [facility] Work Phone: Comment on above: Once (Lab) for 1 Occurrences starting until 10/04/2024 Once for 1 Occurrenc es starting 10/04/2024 until 10/04/2024 Protein [Mass/volume ] in Body fluid [facility] Prothrombin time [facility] Red blood cell count [facility] Red cell distributio n width determination [facility] Serum chloride measurement [facility] Sodium measurement [facility] End: 10-04-2024 Stool Pathogen Panel, PCR Stool Pathogen Panel, PCR Microbiology STAT Once (Lab) for 1 Occurrences starting 10/04/2024 until 10/04/2024 [facility] Work Phone: Comment on above: Once (Lab) for 1 Occurrences starting until 10/04/2024 Total protein measurement [facility] UA DIP, URINE (POC) UA DIP, URIN E (POC) Lab Routine Screening for genitourinary condition 1 Occurrences starting 12/07/2024 [facility] Work Phone: Comment on above: 1 Occurrences starting 12/07/2024 Urea nitrogen [Mass/volume] in Serum or Plasma [facility] End: 10-04-2024 Urinalysis complete W Reflex Culture panel - Urine [facility] Service Area Work Phone: Comment on above: Once (Lab) for 1 Occurrences starting until 10/04/2024 Once for 1 Occurrenc es starting 10/04/2024 until 10/04/2024 Urine culture [facility] Urine culture [facility] Urine culture [facility] Urine culture [facility] Urine culture [facility] Urine culture [facility] Urine culture [facility] Urine culture [facility] Immunizations Immunization Date Immunization Notes Care Provider Danny méndez 11-16-2024 COVID-19 vaccine, ag e 12+ yr ([id number] [facility]FORM[facility]LY [facility]) Jeremi Abreu RN Work Phone: [facility] 11-15-2024 pneumococcal conjuga te (PCV20) vaccine, 20 valent (PREVNAR 20) Marah Arauz [facility] Work Phone: [facility] 11-14-2024 hepatitis A vaccine, adult dosage Marah Arauz [employer]LECT[employer] ENGINEERING TECHNOLOGIST Work Phone: [facility] 11-14-2024 Hepatitis B vaccine (recombinant), CpG adjuvanted Marah Arauz ELECTRICAL ENGINEERING TECHNOLOGIST Work Phone: [facility] 11-14-2024 tetanus toxoid, redu danica diphtheria toxoid, and acellular pertussis vaccine, adsorbed Marah Arauz ELECTRICAL ENGINEERING TECHNOLOGIST Work Phone: [facility] 09-20-2024 influenza, seasonal, injectable Jeremi Abreu RN Work Phone: [facility] Work Phone: 09-15-2024 tuberculin skin test ; purified protein derivative solution, intradermal Jeremi Abreu RN Work Phone: [facility] Payers Date Payer Category Payer Self-pay 2024 Medicaid [id number] 2024 Medicaid [id number] 1965 Unknown [id number] 1965 Unknown [id number] Unknown [id number] Social History Date Type Detail Facility Start: 10-04-2024 End: 02-16-2025 Tobacco smoking status NHIS Ex-smoker [facility] Work Phone: History of tobacco use Current smoker [facility] Work Phone: History of tobacco use Cigarette Smoker [facility] Work Phone: Start: 10-04-2024 End: 11-11-2024 Tobacco use and exposure Smokeless tobacco non-user [facility] Work Phone: Start: 10-04-2024 Alcoholic beverage intake Ex-drinker (finding) [facility] spitals [facility] Work Phone: Start: 10-04-2024 End: 11-15-2024 History of Social function [place] [facility] Start: 10-04-2024 End: 11-15-2024 Tobacco use panel [facility] Start: 1965 Sex assigned at Not on file [facility] Work Phone: Start: 09-24-2024 End: 10-04-2024 Exposure to SARS-CoV-2 (event) Not sure [facility] Work Phone: Start: 10-11-2024 End: 11-21-2024 Sex Male (finding) [facility] Start: 1965 Sex Assigned At Male [facility] Start: 11-11-2024 End: 11-18-2024 Alcoholic beverage intake Lifetime non-drinker (finding) [facility] Has the 5o9, [employer], or [employer] threatened to shut off services in your home in past 12Mo No [facility] (I/We) worried pete (my/our) food would run out before (I/we) got money to buy more. Sometimes true [facility] In the past 12 month s, has lack of transportation kept you from medical appointments or from getting medications? Yes [facility] Medical Equipment Procedure Code Equipment Code Equipment Origin al Text Equipment Identifier Dates Cystoscopic insertion of stent ([id number]) [id number] FDA Start: 09-05-2024 Goals Date Patient Goal Desired Activity /State Functional Status Date Assessment Result Facility 02-17-2025 Functional status Bathroom Privi lege;Back to bed [facility] Work Phone: 01-31-2025 Functional status [facility] Work Phone: 01-21-2025 Functional status [facility] Work Phone: 01-05-2025 Functional status With Assist of 1 [facility] Work Phone: 01-05-2025 Functional status Ambulates;Bath room Privilege [facility] Work Phone: 12-02-2024 Functional status [facility] Work Phone: 11-25-2024 Functional status [facility] Work Phone: 11-18-2024 Are you deaf, or do you have serious difficulty hearing Yes 11/18/2024 10:13 AM Anika Andino RN Yes [facility] 11-18-2024 Are you blind, or do you have serious difficulty seeing, even when wearing glasses No 11/18/2024 10:13 AM Anika Andino RN No [facility] 11-18-2024 Do you have serious difficulty walking or climbing stairs Yes 11/18/2024 10:13 AM Anika Andino RN Yes [facility] 11-18-2024 Do you have difficul ty dressing or bathing Yes 11/18/2024 10:13 AM Anika Andino, DAYSI Yes [facility] 11-18-2024 Because of a physica l, mental, or emotional condition, do you have difficulty doing errands alone such as visiting a physician's office or shopping Yes 11/18/2024 10:13 AM Anika Andino RN Yes [facility] 11-11-2024 Functional status [facility] Work Phone: 09-15-2024 Functional status [facility] Work Phone: 09-02-2024 Functional status Bathroom Privilege [facility] Work Phone: Mental Status Date Assessment Result Facility 02-17-2025 Cognitive function Voice/Name [facility] Work Phone: 02-16-2025 Cognitive function Alert;Appropr iate;Follow s Commands;Drowsy [facility] Work Phone: 02-11-2025 Cognitive function Awake;Alert;Appropriat e [facility] Work Phone: 01-31-2025 Cognitive function Cooperative;A nxious;Talk ative [facility] Work Phone: 01-30-2025 Cognitive function Voice/Name [facility] Work Phone: 01-28-2025 Cognitive function Awake;Alert;A ppropriate; Follows Commands [facility] Work Phone: 01-21-2025 Cognitive function Voice/Name [facility] Work Phone: 01-05-2025 Cognitive function Voice/Name [facility] Work Phone: 01-02-2025 Cognitive function Awake;Alert;Appropriat e [facility] Work Phone: 12-30-2024 Cognitive function Awake;Alert;A ppropriate; Follows Commands [facility] Work Phone: 12-02-2024 Cognitive function Voice/Name [facility] Work Phone: 11-25-2024 Cognitive function Voice/Name [facility] Work Phone: 11-18-2024 Because of a physica l, mental, or emotional condition, do you have serious difficulty concentrating, remembering, or making decisions Yes 11/18/2024 10:13 AM JOYT Anika Carolina RN Yes [facility] 11-10-2024 Cognitive function Voice/Name [facility] Work Phone: 09-29-2024 Cognitive function Awake;Alert;A ppropriate; Follows Commands [facility] Work Phone: 09-14-2024 Cognitive function Appropriate;Cooperativ e [facility] Work Phone: 09-14-2024 Cognitive function Voice/Name [facility] Work Phone: 09-02-2024 Cognitive function Voice/Name [facility] Work Phone: Clinical Notes 08-30-2024 to 02-27-2025 Note Date & Type Note Facility 02-27-2025 Note [facility] 02-17-2025 Note [facility] 02-16-2025 Discharge summary Note Date/Time February 16, 2025 6:39pm [facility] Medical Records Department [address] [place] [address] Emergency Department Summary 02/16/25 MR#: [id number] Acct: [id number] Name: FRANKLIN WIGGINS Rep #:[id number] : [...] x #1,200 ea 01/31/25 Unk nown Rx / (Pen Needle) oxycodone 5 mg tablet 5 [...] liver enzymes. Patient will be admitted to [facility]. History & Record Review Discussion w/independent historian: [...] diabetes mellitus Disposition Disposition: Acute Care Hospital [facility] What to do if you have Problems For any increased pain, shortness of breath, bleeding, nausea or vomiting, chestpain, or any unexpected problems, contact your Primary Care Provider. Call [facility] ([phone]) or report to the closest Emergency Room. Call 911 if necessary. 02/16/259 <Electronically signed by Alber Dunn MD> Cosigner Signature (if applicable): CC: Dr. Jerald Sherwood MD ~ Signed [facility] Work Phone: 1(959) 240-626307-16-2025 Procedure [facility] 02-13-2025 Radiology Diagnostic study [facility]07-11-2025 Radiology Diagnostic study [facility]07-08-2025 Radiology Diagnostic study [facility]06-30-2025 Discharge summary Author Yaritza Leo [facility] Note Date/Time January 31, 2025 2:41 pm [facility] Medical Records Department [address] [place] [place] [address] Discharge Summary 01/31/25 1217 MR#: [id number] Acct: [id number] Name: FRANKLIN WIGGINS Rep #:[id number] : 1965 59 From: Yaritza Leo DO PCP: Dr. Jerald Sherwood MD Status:ADM I N Location: [place] [address] Providers Date of Admission: 01/28/25 Date of [...] a 59-year-old male who presented from local long-term facility to which she was discharged on [...] Final Vancomycin Resist. E. faecalis GNR lactose internet application developer 01/28/25 06:15 Blood Culture (Wb) - Anticubital [...] Self Care Charges/Coding Visit Charges Inpatient E&M: 66431 Disch Hosp >30min 01/31/25 1441 <Electronically signed by Yaritza Leo DO> Cosigner Signature (if applicable): CC: Dr. Yaritza Leo DO; Dr. Jerald Sherwood MD~ Signed [facility] Work Phone: 1(299) 852-771606-30-2025 [facility]06-30-2025 Hospital Discharge instructionsAdditional Instructions 1. Goal bowel movements with lactulose is 2-3 bowel movements daily. If you are having more than 3 bowel movements daily please decrease your lactulose from 3 times daily to 2 times daily 2. It is very important that you are compliant with your medications and utilize them as directed Date of Discharge: 01/31/25[facility] Work Phone: 1(611) 235-159306-29-2025 Progress note Author Yaritza Leo [facility] Note Date/Time January 30, 2025 1:37 pm [facility] Medical Records Department [address] [facility] [place] [address] Progress Note - Hospitalist 01/30/25 0728 MR#: [id number] Acct: [id number] Name: FRANKLIN WIGGINS Rep #:[id number] : 1965 59 From: Yaritza eLo DO PCP: Dr. Jerald Sherwood MD Status:ADM I N Location: [place] [id number] Reason for Visit Reason for Visit: Fever [...] Neut % (Auto) 53.2, Lymph % (Auto) 20.0,[place] % (Auto) 18.5 H, Eos % (Auto) [...] Preliminary GPC Poss Enterococcus sp GNR lactose internet application developer 01/28/25 03:10 Mucosa - Nose SARS-CoV-2, Influenza [...] Full code Charges/Coding Visit Charges Inpatient E&M: 91543 Subs Hosp L2 01/30/25 5680 <Electronically signed by Yaritza Leo DO> Cosigner Signature (if applicable): CC: ~ Signed [facility] Work Phone: 1(462) 180-922806-28-2025 Progress note Author Yaritza Leo [facility] Note Date/Time January 29, 2025 5:59 pm [facility] Medical Records Department [address] [place] [address] Progress Note - Hospitalist 01/29/25 0754 MR#: [id number] Acct: [id number] Name: FRANKLIN WIGGINS Rep #:[id number] : 1965 59 From: Yaritza Leo DO PCP: Dr. Jerald Shewrood MD Status:ADM I N Location: [place] [address] Reason for Visit Reason for Visit: Fever [...] (Auto) 60.8, Lymph % (Auto) 17.1 L, [place] % (Auto) 15.2 H, Eos % (Auto) [...] Full code Charges/Coding Visit Charges Inpatient E&M: 72062 Subs Hosp L2 01/29/25 6261 <Electronically signed by Yaritza Leo DO> Cosigner Signature (if applicable): CC: ~ Signed [facility] Work Phone: 1(660) 575-235106-27-2025 History and physical note Author Boone Izquierdo [facility] Note Date/Time January 28, 2025 7:26 am [facility] Medical Records Department [address] [place] [address] H&P Exam - Hospitalist 01/28/25 0710 MR#: [id number] Acct: [id number] Name: FRANKLIN WIGGINS Rep #:[id number] : 1965 59 From: Boone Izquierdo DO PCP: Dr. Jerald Sherwood MD Status:REG E R Location: ED HPI - General General Date of Service: 01/28/25 Chief Complaint: Fever. HPI Narrative FRANKLIN WIGGINS, is a 59 M who presents with fever from the long term. This ashely 59-year-old male with cirrhosis presents with fever and confusion from the long term. In emergency room, he was afebrile but [...] stable in the emergencyroom without fluid resuscitation. [facility] Medical History (Updated 06/27/25 @ 07:[address] Boone Izquierdo, DO) Hepatic encephalopathy Umbilical hernia Chronic hyponatremia Weakness Diarrhea Sepsis Acidosis, lactic Acute hypotension Acute UTI Chronic hypotension Obesity (BMI 30-39.9) Chronic back pain ISABEL (acute kidney injury) Hypotension Hyperbilirubinemia 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) HLD (hyperlipidemia) HTN (hypertension) Thrombocytopenia Chronic anemia Former tobacco use Diabetes mellitus, type 2 BABY on CPAP Back pain Home Medications ?Medication [...] (Auto) 57.8, Lymph % (Auto) 18.8 L, [place] % (Auto) 16.7 H, Eos % (Auto) [...] Clarity Cloudy, Urine pH 8.0, Ur Specific [place] 1.015, Urine Protein 100 H, Urine Glucose [...] bilateral basilar atelectatic pulmonary changes. [facility]Pelvis CT 01/28/25 05:12 IMPRESSION: Cirrhosis, collateral [...] correlate for possible hepatic colopathy. Reading Location: [facility] Assessment & Plan Assessment/Plan (1) Hepatic encephalopathy: [...] be continued. Charges/Coding Visit Charges Inpatient E&M: 50784 Init Hosp L3 01/28/25 0726 <Electronically signed by Boone Izquierdo DO> Cosigner Signature (if applicable): CC: Dr. Boone Izquierdo DO; Dr. Jerald Sherwood MD~ Signed [facility] Work Phone: 1(109) 439-838406-27-2025 History and physical note Author Boone Izquierdo [facility] Note Date/Time January 28, 2025 7:26 am [facility] Medical Records Department [address] [place] [address] H&P Exam - Hospitalist 01/28/25 0710 MR#: [id number] Acct: [id number] Name: FRANKLIN WIGGINS Rep #:[id number] : 1965 59 From: Boone Izquierdo DO PCP: Dr. Jerald Sherwood MD Status:REG E R Location: ED HPI - General General Date of Service: 01/28/25 Chief Complaint: Fever. HPI Narrative FRANKLIN WIGGINS, is a 59 M who presents with fever from the long term. This ashely 59-year-old male with cirrhosis presents with fever and confusion from the long term. In emergency room, he was afebrile but [...] stable in the emergencyroom without fluid resuscitation. [facility] Medical History (Updated 01/28/25 @ 07:16 [...] (Auto) 57.8, Lymph % (Auto) 18.8 L, [place] % (Auto) 16.7 H, Eos % (Auto) [...] Clarity Cloudy, Urine pH 8.0, Ur Specific [place] 1.015, Urine Protein 100 H, Urine Glucose [...] bilateral basilar atelectatic pulmonary changes. [facility]dom[facility]/Pelvis CT 01/28/25 05:12 IMPRESSION: Cirrhosis, [...] correlate for possible hepatic colopathy. [facility] Assessment & Plan Assessment/Plan (1) Hepatic encephalopathy: [...] be continued. Charges/Coding Visit Charges Inpatient E&M: 24488 Init Hosp L3 01/28/25 0726 <Electronically signed by Boone Izquierdo DO> Cosigner Signature (if applicable): CC: Dr. Boone Izquierdo DO; Dr. Jerald Sherwood MD~ Signed [facility] Work Phone: 1(335) 173-712506-27-2025 Discharge summary Author Danny Hutton [facility] Note Date/Time January 28, 2025 6:[address] [facility] Medical Records Department [address] [place] [address] Emergency Department Summary 01/28/25 MR#: [id number] Acct: [id number] Name: FRANKLIN WIGGINS Rep #:[id number] : 1965 59 From: Danny christy DO PCP: Dr. Jerald Sherwood MD Status:REG E R Location: ED HPI History of Present Illness Chief Complaint: Confusion Narrative Narrative: Chief complaint and HPI: Fever and confusion. 59-year-old male with past medical history DM2, ABBY, HTN, HLD, liver 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 presents from [place] for fever and confusion. History taken by [...] diarrhea, constipation, dysuria. I personally spoke with [place] staff. The nurse is new to taking [...] Alert, grossly intact, sensation intact Psych: Cooperative [facility] Medical History Umbilical hernia Chronic [...] liver 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 presents from [place] for fever and confusion. Patient is a poor historian therefore history taken by EMS as well as [place] nurse. Reported patient developed a fever of 101 ?F this evening prior to arrival. No meds were given. Nurse as well as myself does not know the patient's baseline mental status although nursing staff here that note is the patient states that wax and wanes. Nurse there states that multiple techs felt that the patient wasconfused at [place] and that he was asking about people [...] (Auto) 57.8 Lymph % (Auto) 18.8 L [place] % (Auto) 16.7 H Eos % (Auto) [...] Color Urine Clarity Urine pH Ur Specific [place] Urine Protein Urine Glucose (UA) Urine Ketones Urine Occult Blood Urine Nitrite Urine Bilirubin Urine Urobilinogen Ur Leukocyte Esterase Urine RBC Urine WBC Ur Squamous Epith Cells Urine Bacteria Urine Mucus 01/28/25 01/28/25 04:33 04:58 WBC RBC Hgb Hct MCV MCH MCHC RDW Std Deviation RDW Coeff of Francis Plt Count MPV Immature Gran % (Auto) Neut % (Auto) Lymph % (Auto) [place] % (Auto) Eos % (Auto) Baso % [...] Clarity Cloudy Urine pH 8.0 Ur Specific [place] 1.015 Urine Protein 100 H Urine Glucose [...] bilateral basilar atelectatic pulmonary changes. [facility] Abdomen/Pelvis CT 01/28/25 05:12 IMPRESSION: Cirrhosis, [...] correlate for possible hepatic colopathy. Reading Location: [place] [address] Discharge Plan Triage Chief Complaint: Confusion ED [...] MD [Primary Care Provider] - Print Language: Guyanese What to do if you have Problems For any increased pain, shortness of breath, bleeding, nausea or vomiting, chestpain, or any unexpected problems, contact your Primary Care Provider. Call [facility] ([phone]) or report to the closest Emergency Room. Call 911 if necessary. 01/28/25 0659 <Electronically signed by Danny Hutton DO> Cosigner Signature (if applicable): CC: Dr. Jerald Sherwood MD ~ Signed [facility] Work Phone: 1([phone]) 109-419306-27-2025 Radiology Diagnostic study [facility]06-27-2025 Radiology Diagnostic study [facility]06-20-2025 Discharge summary Author Anurag Irene [facility] Note Date/Time January 21, 2025 11:[address] [facility] Medical Records Department [address] [place] [address] Transfer to [facility] MR#: [id number] Acct: [id number] Name: FRANKLIN WIGGINS Rep #:[id number] : 1965 59 From: Anurag Lucero PCP: YG Pena Status:ADM I N Certification of patient admission REQUIRED AT TIME OF ADMISSION. I CERTIFY THAT POST-HOSPITAL ECF SERVICES ARE REQUIRED TO BE GIVEN ON AN IN-PATIENT BASIS BECAUSE OF THE ABOVE NAMED PATIENT'S NEED FOR INTERMEDIATE CARE ON A CONTINUING BASIS FOR THE CONDITION(S) FOR WHICH HE/SHE WAS RECEIVING IN-PATIENT HOSPITAL SERVICES PRIOR TO HIS/HER TRANSFER TO THE ECF. 01/21/25 1112<Electronically signed by Anurag Irene MD> [...] (Auto) 63.5, Lymph % (Auto) 16.3 L, [place] % (Auto) 11.9 H, Eos % (Auto) [...] Instructions Additional Instructions / Restrictions: Follow-up in [facility] hepatology/GI. Discharge Orders/Prescriptions Prescriptions: New spironolactone [...] D/C Order can be placed): Shelter Facility 01/21/25 1112 <Electronically signed by Anurag Irene MD> Cosigner Signature (if applicable): CC: YG Elias; Dr. Aleyda Bautista MD; Dr. Yaritza Leo DO; Dr. Cielo Tovar MD; Dr. Jefferson Malave MD ~ [facility] Work Phone: 1([phone]) 666-668006-20-2025 Discharge summary Author Anurag Irene [facility] Note Date/Time January 21, 2025 1:[address] [facility] Medical Records Department [address] [place] [address] Discharge Summary 01/21/25 1112 MR#: [id number] Acct: [id number] Name: FRANKLIN WIGGINS Rep #:[id number] : 1965 59 From: Anurag Lucero PCP: YG Pena Status:ADM I N Location: [place] [address] Providers Date of Admission: 01/09/25 Date of Discharge: 01/21/25 Primary Care Physician: YG Pena Consultations 01/09/25 15:46 Consult: [employer] / Pulmonary Medicine Routine Consulting Provider: Intensivists/Pulmonary Med Reason for Consult: sepsis EMERGENT Consult: No MD Notified: Yes Date Notified: 01/09/25 Time Notified: 14:21 Method of Notification: Text 01/11/25 13:23 Consult: General Surgery Routine Consulting Provider: Jefferson Malave Reason for Consult: Tender umbilical hernia possibly incarcerated EMERGENT Consult: No Notified: Yes Date Notified: 01/11/25 Time Notified: [...] extremity therefore Calmoseptine ointment and Atarax ordered. 6/20: mild hypokalemia K3.1. Spironolactone dose increased to [...] (Auto) 63.5, Lymph % (Auto) 16.3 L, [place] % (Auto) 11.9 H, Eos % (Auto) [...] solution (Constulose) 15 ml PO TID PRN chedybpegccg90/27/25 L.acidophil,salivari-Bifido bifidum-Strep thermoph 175 mg capsule 1 [...] Instructions Additional Instructions / Restrictions: Follow-up in [facility] hepatology/GI. Discharge Orders/Prescriptions Prescriptions: New spironolactone [...] Shelter Facility Charges/Coding Visit Charges Inpatient E&M: 40657 Disch Hosp >30min 01/21/25 1117 <Electronically signed [...] Dr. Anurag Irene MD ~* Signed [facility] Work Phone: 1(365) 619-938306-20-2025 [facility]06-19-2025 Progress note Author Anurag Irene [facility] Note Date/Time January 20, 2025 2:[address] [facility] Medical Records Department [address] [place] [address] Progress Note - Hospitalist 01/20/25 1436 MR#: [id number] Acct: [id number] Name: FRANKLIN WIGGINS Rep #:[id number] : 1965 59 From: Anurag Lucero PCP: YG Pena Status:ADM I N Location: [place] [address] Reason for Visit Reason for Visit: Diagnoses [...] (Auto) 63.5, Lymph % (Auto) 16.3 L, [place] % (Auto) 11.9 H, Eos % (Auto) [...] (Auto) 63.5, Lymph % (Auto) 16.3 L, [place] % (Auto) 11.9 H, Eos % (Auto) [...] 167 H Charges/Coding Visit Charges Inpatient E&M: 96889 Subs Hosp L2 01/20/25 1440 <Electronically signed by Anurag Irene MD> Cosigner Signature (if applicable): CC: ~ Signed [facility] Work Phone: 1(567) 295-260906-18-2025 Progress note Author Anurag Irene [facility] Note Date/Time January 19, 2025 4:46 pm [facility] Medical Records Department [address] [place] [address] Progress Note - Hospitalist 01/19/25918 MR#: [id number] Acct: [id number] Name: FRANKLIN WIGGINS Rep #:[id number] : 1965 59 From: Anurag Lucero PCP: YG Pena Status:ADM I N Location: [place] [address] Reason for Visit Reason for Visit: Diagnoses [...] WBCs % 75.6, Fluid Neutrophils 20, Fluid Wjvenalteqs21, Fluid Monocytes 3, Fluid Macrophages 46, Fluid [...] (Auto) 67.7, Lymph % (Auto) 13.6 L, [place] % (Auto) 11.0 H, Eos % (Auto) [...] gas. Correlate with surgical history. Reading Location: [id number] Paracentesis Ultrasound 01/18/25 13:08 IMPRESSION: Right lower quadrant marker was applied for paracentesis with drain the fluid volume of 2650 cc. Reading Location: [place] [address] Physical Exam Narrative Seen and examined Discussed [...] WBCs % 75.6, Fluid Neutrophils 20, Fluid Gahykhgaymp79, Fluid Monocytes 3, Fluid Macrophages 46, Fluid [...] (Auto) 67.7, Lymph % (Auto) 13.6 L, [place] % (Auto) 11.0 H, Eos % (Auto) [...] 198 H Charges/Coding Visit Charges Inpatient E&M: 31468 Subs Hosp L2 01/19/25 9486 <Electronically signed by Anurag Irene MD> Cosigner Signature (if applicable): CC: ~ Signed [facility] Work Phone: [phone]) 640-436006-18-2025 Radiology Diagnostic study [facility]06-17-2025 Radiology Diagnostic study [facility]06-17-2025 Progress note Author Anurag Irene [facility] Note Date/Time January 18, 2025 1:[address] [facility] Medical Records Department [address] [facility] [place] [address] Progress Note - Hospitalist 01/18/25 1302 MR#: [id number] Acct: [id number] Name: FRANKLIN WIGGINS Rep #:[id number] : 1965 59 From: Anurag Lucero PCP: YG Pena Status:ADM I N Location: [place] [address] Reason for Visit Reason for Visit: Diagnoses [...] (Auto) 68.1, Lymph % (Auto) 14.0 L, [place] % (Auto) 10.0, Eos % (Auto) 6.1 [...] prophylaxis: SCDs Charges/Coding Visit Charges Inpatient E&M: 20374 Subs Hosp L2 01/18/25 1314 <Electronically signed by Anurag Irene MD> Cosigner Signature (if applicable): CC: ~ Signed [facility] Work Phone: [phone]) 479-276906-17-2025 Consult note Author Mohit Santos [facility] Note Date/Time January 18, 2025 12:4 9pm [facility] Medical Records Department [address] [place] [address] Pre-Anesthesia Evaluation 01/18/25 1246 MR#: [id number] Acct: [id number] Name: FRANKLIN WIGGINS Rep #:[id number] : 1965 59 From: Mohit Santos MD PCP: YG Pena Status:ADM I N Y Race: C Location: [place] [address] 2-1 ASA Classification* ASA Classification ASA Classification: [...] lab: CBC WBC 8.1 K/mm3 (4.4-11.0) 01/18/25 05:21 01/18/25 RBC 2.56 M/mm3 (4.6-6.2) L 01/18/25 05:01/18/25 Hgb 7.7 g/dL (13.0-16.5) L 01/18/25 05:01/18/25 Hct 22.6 % (40-54) L 01/18/25 05:21 01/18/25 Plt Count 107 K/mm3 (150-450) L 01/18/25 05:01/18/25 CHEMISTRY Potassium 2.8 mmol/L (3.3-5.1) L 01/18/25 05:01/18/25 Sodium 132 mmol/L (133-145) L 01/18/25 05:01/18/25 Magnesium 1.6 mg/dL (1.5-2.2) 01/18/25 05:01/18/25 Phosphorus 3.7 mg/dL (2.7-4.5) 01/18/25 05:01/18/25 BUN 8 mg/dL (4-19) 01/18/25 05:01/18/25 Creatinine 0.85 mg/dL (0.70-1.20) 01/18/25 05:01/18/25 Glucose 228 mg/dL (70-99) H 01/18/25 05:21 01/18/25 POC Glucose 142 mg/dL (74-106) H 01/18/25 11:30 01/18/25 TSH 0.826 uIU/mL (0.358-3.740) 09/04/24 23:07 020 08/28 COAG PT 22.9 SECONDS (11.7-14.9) H 01/18/25 05:01/02 Pre-Assessment Diagnosis/Proposed Procedure Planned Operative Procedure(s): Lumbar steroid injection L1/L2 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 - apparel 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: 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 - apparel 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 Hx Hospitalization Any Problems With Anesthesia No [...] am of surgery tylenol PONV PONV - apparel 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: PONV - apparel 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 Female HX of Motion Sickness HX of N/V After Surgery Non-Smoker Duration of Surgery greater than 60 minutes Number of Risk Factors PONV Score Height & Weight Height & Weight: Anesthesia: Height & Weight Height 5 ft 9 in 01/17/25 14:51 Weight: 111.3 kg 01/18/25 08:57 Body Mass Index (BMI) 36.2 01/18/25 03:51 Respiratory Assessment Respiratory Assessment - apparel 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: Respiratory Tract Infection Hx - apparel 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 Hx Respiratory Tract Infection No 01/18/25 09:01 STOP Sleep Apnea STOP Sleep Apnea - apparel 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: STOP Sleep Apnea - apparel 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 Hx Hypertension No 01/10/25 10:46 Hx Sleep [...] Tobacco Use History Tobacco Use History - apparel 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: Tobacco Use History - apparel 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 Tobacco Use Smoking Status Former smoker 01/10/25 09:20 Hx Tobacco Use Yes 01/09/25 15:31 Years Smoking Packs Smoked per Day Smoking Cessation Date was Yes - quit smoking within 15 01/09/25 15:31 within the last 15 years years Hx Smoking Cessation Date 05/04/24 01/09/25 15:31 Hx Smoking Cessation Counseling Hematologic Medial History Hematologic Hx - apparel 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: 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 Hx of Blood Transfusion No 01/09/25 15:31 [...] confused, unrespo /Reproduction History /Reproductive History - apparel 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: /Reproductive Hx- apparel 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 Hx Now No 01/18/25 09:01 Gestational Age [...] mls @ 15 mls/hr 01/09/25 15:34 IV .[id number] PRN Saline Flush Sodium Chloride 250 mls @ 15 mls/hr 01/09/25 15:34 IV .H24F08P PRN Additional IVPB Infusion Sodium Chloride 1,000 mls @ 15 mls/hr 01/18/25 12:45 IV .Q48H [facility] Insulin Glargine 20 unit 01/09/25 22:00 01/17/25 21:05 Insulin Glargine-Yfgn 100 Unit/Ml Pen SC 20 unit QHS KRYSTIN Administration Insulin Glargine 20 unit 01/10/25 10:00 01/18/25 11:31 Insulin Glargine-Yfgn 100 Unit/Ml Pen SC Not Given DAILY [facility] Insulin Human Lispro 0 unit 01/09/25 16:00 01/18/25 11:33 Insulin Lispro 100 Unit/Ml Insuln.Pen SC Not Given ACHS [facility] Protocol Lactulose 10 gm 01/09/25 15:46 01/12/25 14:34 Lactulose 20 Gm/30 Ml Udc PO 10 gm TID PRN Administration constipation Magnesium Chloride 128 mg 01/10/25 10:00 01/18/25 11:31 Magnesium Chloride 64 Mg Delay Rel.Tablet PO Not Given DAILY [facility] Midodrine 10 mg 01/09/25 17:00 01/18/25 12:07 Midodrine Hcl 5 Mg Tablet PO 10 mg TIDCM [facility] Administration Morphine Sulfate 1 mg 01/11/25 13:23 01/17/25 19:56 Morphine 2 Mg/Ml Syringe IV 1 mg Q4H PRN PRN Administration Pain Score 6-10 Ondansetron HCl 4 mg 01/09/25 15:46 01/12/25 13:39 Ondansetron 4 Mg/2 Ml Vial IV 4 mg Q8H PRN PRN Administration NAUSEA/VOMITING Pantoprazole Sodium 20 mg 01/10/25 10:00 01/18/25 11:32 Pantoprazole Sodium 20 Mg Tablet PO Not Given DAILY [facility] Potassium Phos/Sodium Phos 1 packet 01/09/25 22:00 01/18/25 11:32 Na Biphos/Potassium Phosphate Packet PO Not Given BID KRYSTIN Rifaximin 550 mg 01/09/25 22:00 01/17/25 21:06 Rifaximin 550 Mg Tablet PO 550 mg BID [facility] Administration Sodium Bicarbonate 650 mg 01/09/25 22:00 01/18/25 11:32 Sodium Bicarbonate 650 Mg Tablet PO Not Given BID [facility] Sodium Chloride 10 - 40 ml 01/09/25 15:34 01/18/25 08:33 0.9% Saline Lock 10 Ml Syringe IV 20 ml UD PRN Administration SALINE FLUSH Thiamine HCl 100 mg 01/10/25 10:00 01/18/25 11:32 Thiamine Hydrochloride 100 Mg Tablet PO Not Given DAILY [facility] Medical History (Updated 01/17/25 @ [...] Cosigner Signature: Date CC: ~ Signed [facility] Work Phone: 1([phone] 201-315006-16-2025 Consult note Author Buster Carmichael [facility] Note Date/Time January 17, 2025 4:[address] [facility] Medical Records Department [address] [place] [address] Consultation 01/17/25 1522 MR#: [id number] Acct: [id number] Name: FRANKLIN WIGGINS Rep #:[id number] : 1965 59 From: Buster brewster MD PCP: YG Pena Status:ADM I N Location: [place] [address] Assessment & Plan Assessment/Plan (1) Spinal stenosis, [...] be 8- 10/10 in severity when moving. [facility] Medical History (Updated 01/17/25 @ 16:52 [...] (Auto) 67.2, Lymph % (Auto) 12.9 L, [place] % (Auto) 11.5 H, Eos % (Auto) 6.8 H, Baso % (Auto) 0.5, Absolute Neuts (auto) 5.7, Absolute Lymphs (auto) 1.09, Nucleated RBC % 0 01/17/25 06:28: POC Glucose 173 H 01/17/25 11:26: POC Glucose 141 H 01/17/25 1657 <Electronically signed by Buster Carmichael MD> Cosigner Signature (if applicable): CC: YG Elias~ Signed [facility] Work Phone: 1(598) 274-730406-16-2025 Progress note Author Anurag Irene [facility] Note Date/Time January 17, 2025 2:32 pm [facility] Medical Records Department [address] [place] [address] Progress Note - Hospitalist 01/17/25 1420 MR#: [id number] Acct: [id number] Name: FRANKLIN WIGIGNS Rep #:[id number] : 1965 59 From: Anurag Lucero PCP: YG Pena Status:ADM I N Location: [place] [address] Reason for Visit Reason for Visit: Diagnoses [...] (Auto) 67.2, Lymph % (Auto) 12.9 L, [place] % (Auto) 11.5 H, Eos % (Auto) [...] prophylaxis: SCDs Charges/Coding Visit Charges Inpatient E&M: 79115 Subs Hosp L2 01/17/25 1432 <Electronically signed by Anurag Irene MD> Cosigner Signature (if applicable): CC: ~ Signed [facility] Work Phone: 1(448) 332-210906-16-2025 [facility]06-15-2025 Progress note Author Cieloestuardo Tovar [facility] Note Date/Time January 16, 2025 3:[address] [facility] Medical Records Department [address] [place] [address] Progress Note 01/16/25 1236 MR#: [id number] Acct: [id number] Name: FRANKLIN WIGGINS Rep #:[id number] : 1965 59 From: Cielo Tovar MD PCP: Josy Tannhof, ACCESS ANALYST-C Status:ADM I N Location: [place] [address] Subjective Subjective Patient seen and examined. He [...] (Auto) 64.9, Lymph % (Auto) 14.6 L, [place] % (Auto) 12.7 H, Eos % (Auto) [...] at home. Charges/Coding Visit Charges Inpatient E&M: 97561 Subs Hosp L2 01/16/25 1537 <Electronically signed by Cielo Tovar MD> Cielo Tovar MD Cosigner Signature (if applicable): CC: ~ Signed [facility] Work Phone: 1(266) 724-216106-14-2025 Consult note Author Buster Hahn [facility] Note Date/Time January 15, 2025 6:46 pm [facility] Medical Records Department [address] [place] [address] Pharmacokinetic/Renal -Consult 01/15/25 1846 MR#: [id number] Acct: [id number] Name: FRANKLIN WIGGINS Rep #:[id number] : 1965 59 From: Buster Lopes [facility] PCP: YG Pena Status:ADM I N Y Location: [place] [address] Consult Antibiotic Management Pharmacy has been consulted [...] 01/15/25 1846 <Electronically signed by Buster Nieves [facility]> Date _ uBster Hahn [facility] Cosigner Signature (if applicable): Date CC: ~ Signed [facility] Work Phone: [phone]) [phone] Progress note Author Cielo Tovar [facility] Note Date/Time January 15, 2025 6:29 pm [facility] Medical Records Department [address] [place] [address] Progress Note 01/15/25 1321 MR#: [id number] Acct: [id number] Name: FRANKLIN WIGGINS Rep #:[id number] : 1965 59 From: Cielo Tovar MD PCP: Josy Elias NP-C Status:ADM I N Location: [place] [address] Subjective Subjective Patient seen and examined. He [...] (Auto) 65.6, Lymph % (Auto) 13.2 L, [place] % (Auto) 13.6 H, Eos % (Auto) [...] at multiple levels, as described. Reading Location: [place] [address] Physical Exam Const alert, oriented x3 and [...] at home. Charges/Coding Visit Charges Inpatient E&M: 72469 Subs Hosp L2 01/15/259 <Electronically signed by Cielo Tovar MD> Cielo Tovar MD Cosigner Signature (if applicable): CC: ~ Signed [facility] Work Phone: 1(166) 812-815706-13-2025 Consult note Author Andreia Carvalho [facility] Note Date/Time January 14, 2025 8:04 pm [facility] Medical Records Department [address] [place] [address] Pharmacokinetic/Renal -Consult 01/14/252002 MR#: [id number] Acct: [id number] Name: FRANKLIN WIGGINS Rep #:[id number] : 1965 59 From: Andreia Carvalho PCP: YG Pena Status:ADM I N Y Location: [place] [address] Consult Antibiotic Management Pharmacy has been consulted [...] by Andreia Carvalho > Date _ Andreia aCrvalho Cosigner Signature (if applicable): Date CC: ~ Signed [facility] Work Phone: 1([phone]) 744-850806-13-2025 Progress note Author Cieloestuardo Tovar [facility] Note Date/Time January 14, 2025 5:[address] [facility] Medical Records Department [address] [place] [address] Progress Note 01/14/25 1706 MR#: [id number] Acct: [id number] Name: FRANKLIN WIGGINS Rep #:[id number] : 1965 59 From: Cielo Tovar MD PCP: Josy Elias ACCESS ANALYST-C Status:ADM I N Location: [place] [address] Subjective Subjective Patient seen and examined. He [...] (Auto) 65.3, Lymph % (Auto) 13.5 L, [place] % (Auto) 14.3 H, Eos % (Auto) [...] at multiple levels, as described. Reading Location: [place] [address] Thoracic Spine MRI 01/13/25 10:30 IMPRESSION: Abnormal marrow signal at T12 and L1. No acute compression deformity identified. Can not exclude metastatic involvement of these 2 vertebral bodies. Degenerative changes in the remainder of the lumbar spine. There is mild spinal stenosis at the level of T10-T11 and T11-T12. The patient could not tolerate postcontrast imaging. There is no cord compression Reading Location: [facility] Chest CT 01/14/25 08:06 IMPRESSION: 1. Partially visualized severe degenerative changes of T11-T12 with areas of erosive changes and lytic lesions. Metastasis can not be excluded. 2. Cirrhosis and ascites. 3. Mild lung emphysema. No suspicious nodules or focal consolidation. Reading Location: [facility] Physical Exam Const alert, oriented [...] medically stable. Charges/Coding Visit Charges Inpatient E&M: 45133 Subs Hosp L2 01/14/25 1866 <Electronically signed by Cielo Tovar MD> Cielo Tovar MD Cosigner Signature (if applicable): CC: ~ Signed [facility] Work Phone: 1(705) 890-475206-13-2025 Radiology Diagnostic study [facility]06-12-2025 Progress note Author [facility] Note Date/Time January 13, 2025 6:28 pm [facility] Medical Records Department [address] [place] [address] Progress Note 01/13/25 1517 MR#: [id number] Acct: [id number] Name: FRANKLIN WIGGINS Rep #:[id number] : 1965 59 From: Cielo Tovar MD PCP: YG Pena Status:ADM I N Location: [place] [address] Subjective Subjective Patient seen and examined. He [...] (Auto) 65.6, Lymph % (Auto) 14.4 L, [place] % (Auto) 13.7 H, Eos % (Auto) [...] medically stable. Charges/Coding Visit Charges Inpatient E&M: 05862 Subs Hosp L2 01/13/258 <Electronically signed by Cielo Tovar MD> Cielo Tovar MD Cosigner Signature (if applicable): CC: ~ Signed [facility] Work Phone: 1(674) 176-740306-12-2025 Consult note Author Francheska Montoya [facility] Note Date/Time January 13, 2025 9:36 am [facility] Medical Records Department [address] [place] [address] Pharmacokinetic/Renal -Consult 01/13/25 0934 MR#: [id number] Acct: [id number] Name: FRANKLIN WIGGINS Rep #:[id number] : 1965 59 From: Francheska Mcfarlane PCP: YG Pena Status:ADM I N Y Location: [place] [address] Consult Antibiotic Management Pharmacy has been consulted [...] (if applicable): Date CC: ~ Signed [facility] Work Phone: 1(255) 455-257406-11-2025 Progress note Author Cielo Tovar [facility] Note Date/Time January 12, 2025 4:51 pm [facility] Medical Records Department [address] [place] [address] Progress Note 01/12/25 1646 MR#: [id number] Acct: [id number] Name: FRANKLIN WIGGINS Rep #:[id number] : 1965 59 From: Cielo Tovar MD PCP: YG Pena Status:ADM I N Location: [place] [address] Subjective Subjective Patient seen and examined. He [...] (Auto) 68.2, Lymph % (Auto) 11.6 L, [place] % (Auto) 12.1 H, Eos % (Auto) [...] his facility. Charges/Coding Visit Charges Inpatient E&M: 46260 Subs Hosp L2 01/12/25 1651 <Electronically signed by Cielo Tovar MD> Cielo Tovar MD Cosigner Signature (if applicable): CC: ~ Signed [facility] Work Phone: 1(572) 193-420306-11-2025 Consult note Author Dilcia Vanessa [facility] Note Date/Time January 11, 2025 10:4 8pm [facility] Medical Records Department [address] [place] [address] Pharmacokinetic/Renal -Consult 01/11/251942 MR#: [id number] Acct: [id number] Name: FRANKLIN WIGGINS Rep #:[id number] : 1965 59 From: Dilcia Vanessa PCP: YG Pena Status:ADM I N Y Location: [place] [address] Consult Antibiotic Management Pharmacy has been consulted [...] Dilcia montalvo> Date _ Dilcia Vanessa 01/11/25 067 <Electronically signed by Yaritza Holland> Cosigner Signature (if applicable): Date Yaritza Leo DO CC: ~ Signed [facility] Work Phone: [phone]) 533-127106-10-2025 Progress note [facility] Note Date/Time January 11, 2025 5:51 pm [facility] Medical Records Department [address] [address] [address] [address] Progress Note 01/11/25 1510 MR#: [id number] Acct: [id number] Name: FRANKLIN WIGGINS Rep #:[id number] : 1965 59 From: Cielo Tovar MD PCP: Josy Elias, ACCESS ANALYST-C Status:ADM I N Location: [place] [address] Subjective Subjective Patient seen and examined. He [...] % (Auto) Cancelled, Lymph % (Auto) Cancelled, [place] % (Auto) Cancelled, Eos % (Auto) Cancelled, [...] Drop Cells Cancelled, Ovalocytes Cancelled, Stomatocytes Cancelled, [place] Bodies Cancelled, [place] Cells Cancelled, Bite Cells Cancelled, Crenated Cell [...] (Auto) 69.6, Lymph % (Auto) 12.6 L, [place] % (Auto) 11.8 H, Eos % (Auto) [...] of anemia Charges/Coding Visit Charges Inpatient E&M: 45274 Subs Hosp L2 01/11/25 1751 <Electronically signed by Cielo Tovar MD> Cielo Tovar MD Cosigner Signature (if applicable): CC: ~ Signed [facility] Work Phone: 1([phone] 174-733406-10-2025 Consult note Author Jefferson Malave [facility] Note Date/Time January 11, 2025 4:41 pm [facility] Medical Records Department [address] [place] [address] Consultation - Surgical 01/11/25 1634 MR#: [id number] Acct: [id number] Name: FRANKLIN WIGGINS Rep #:[id number] : 1965 59 From: Jefferson Malave MD PCP: Josy Elias ACCESS ANALYST-C Status:ADM I N Location: [place] [address] Assessment & Plan Assessment/Plan (1) Umbilical hernia: [...] findings on CT consistent with portal hypertension. [facility] Medical History (Updated 01/11/25 @ 16:41 [...] % (Auto) Cancelled, Lymph % (Auto) Cancelled, [place] % (Auto) Cancelled, Eos % (Auto) Cancelled, [...] Drop Cells Cancelled, Ovalocytes Cancelled, Stomatocytes Cancelled, [place] Bodies Cancelled, [place] Cells Cancelled, Bite Cells [...] (Auto) 69.6, Lymph % (Auto) 12.6 L, [place] % (Auto) 11.8 H, Eos % (Auto) [...] 48 hours. Charges/Coding Visit Charges Inpatient E&M: 66978 Init Hosp L3 01/11/25 1641 <Electronically signed by Jefferson Malave MD> Cosigner Signature (if applicable): CC: ACCESS ANALYST-C Josy Elias~ Signed [facility] Work Phone: 1([phone]) 343-950906-10-2025 Progress note Author Bola Meraz [facility] Note Date/Time January 11, 2025 9:07 am [facility] [facility] Medical [facility] Department [address] [place] [address] Progress Note - [employer] 01/11/25 0722 MR#: [id number] Acct: [id number] Name: FRANKLIN WIGGINS Rep #:[id number] : [...] scheduled midodrine. This note was generated with [employer] software. It may contain incorrectwords, spelling, and [...] % (Auto) Cancelled, Lymph % (Auto) Cancelled, [place] % (Auto) Cancelled, Eos % (Auto) Cancelled, [...] Drop Cells Cancelled, Ovalocytes Cancelled, Stomatocytes Cancelled, [place] Bodies Cancelled, Paloma Cells Cancelled, Bite Cells [...] (Auto) 69.6, Lymph % (Auto) 12.6 L, [place] % (Auto) 11.8 H, Eos % (Auto) [...] hypertension. No liver masses identified. Reading Location: [facility] Physical Exam Const alert, oriented x3 [...] flat affect Charges/Coding Visit Charges Inpatient E&M: 56132 Subs Hosp L2 01/11/25 0907 <Electronically signed by Bola Brown DO> Cosigner Signature (if applicable): CC: ~ Signed [facility] Work Phone: 1(278) 258-725206-10-2025 Consult note Author Boone Garcia [facility] Note Date/Time January 11, 2025 2:14 am [facility] Medical Records Department [address] [place] [address] Pharmacokinetic/Renal -Consult 01/11/25 0211 MR#: [id number] Acct: [id number] Name: FRANKLIN WIGGINS Rep #:[id number] : 1965 59 From: Boone Garcia PCP: Josy Elias NP-[place] Status:ADM I N Y Location: ICU CVICU20 1- Consult Antibiotic Management Pharmacy has been consulted [...] (if applicable): Date CC: ~ Signed [facility] Work Phone: 1(424) 502-620006-09-2025 Progress note Author Cielo [facility] Note Date/Time January 10, 2025 6:23p [facility] Medical Records Department [address] [place] [address] Progress Note 01/10/251815 MR#: [id number] Acct: [id number] Name: FRANKLIN WIGGINS Rep #:[id number] : [...] % (Auto) Cancelled, Lymph % (Auto) Cancelled, [place] % (Auto) Cancelled, Eos % (Auto) Cancelled, [...] Drop Cells Cancelled, Ovalocytes Cancelled, Stomatocytes Cancelled, [place] Bodies Cancelled, B[place] Cells Cancelled, Bite Cells Cancelled, Crenated Cell [...] 76.1 H, Lymph % (Auto) 8.8 L, [place] % (Auto) 8.2, Eos % (Auto) 5.9 [...] prophylaxis: Heparin Charges/Coding Visit Charges Inpatient E&M: 32553 Subs Hosp L3 01/10/25 1823 <Electronically signed by Cielo Tovar MD> Cielo Tovar MD Cosigner Signature (if applicable): CC: ~ Signed [facility] Work Phone: 1(301) 947-480206-09-2025 Progress note Author Bola Meraz [facility] Note Date/Time January 10, 2025 8:52a m [facility] Medical Records Department [address] [place] [address] Progress Note - [employer] 01/10/25 0700 MR#: [id number] Acct: [id number] Name: FRANKLIN WIGGINS Rep #:[id number] : [...] scheduled midodrine. This note was generated with [employer] dictation software. It may contain incorrectwords, spelling, [...] 80.6 H, Lymph % (Auto) 7.2 L, [place] % (Auto) 6.7, Eos % (Auto) 4.2, [...] % (Auto) Cancelled, Lymph % (Auto) Cancelled, [place] % (Auto) Cancelled, Eos % (Auto) Cancelled, [...] Drop Cells Cancelled, Ovalocytes Cancelled, Stomatocytes Cancelled, [place] Bodies Cancelled, Bantry Cells Cancelled, Bite Cells Cancelled, Crenated Cell [...] 76.1 H, Lymph % (Auto) 8.8 L, [place] % (Auto) 8.2, Eos % (Auto) 5.9 [...] hypertension. No liver masses identified. Reading Location: [facility] Physical Exam Const alert, oriented x3 [...] flat affect Charges/Coding Visit Charges Inpatient E&M: 16998 Subs Hosp L3 01/10/25 0852 <Electronically signed by Bola Meraz DO> Cosigner Signature (if applicable): CC: ~ Signed [facility] Work Phone: 1([phone]) 436-587406-08-2025 Consult note Author Lupillo Robbins [facility] Note Date/Time January 09, 2025 8:03p m [facility] Medical Records Department [address] [place] [address] Consultation - [employer] 01/09/25 1836 MR#: [id number] Acct: [id number] Name: FRANKLIN WIGGINS Rep #:[id number] : 1965 59 From: Lupillo Robbins MD PCP: Josy Elias ACCESS ANALYST-C Status:ADM I N Location: ICU CVICU20 1-1 [...] mls @ 15 mls/hr 01/09/25 15:34 IV .[id number] PRN Saline Flush Sodium Chloride 250 mls @ 15 mls/hr 01/09/25 15:34 IV .[id number] PRN Additional IVPB Infusion Norepinephrine Bitartrate 8 mg 250 mls @ 9.375 mls/hr 01/09/25 15:46 01/09/2515:56 / Sodium Chloride CONT INF Not Given .[id number] [facility] Protocol 5 MCG/MIN Vancomycin IV-PHARMACY TO DOSE 500 mls @ 250 mls/hr 01/09/25 15:46 1 each/ Sodium Chloride IV PRN PRN Rx to Dose Protocol Meropenem 1 gm/ Sodium 120 mls @ 33 mls/hr 01/09/25 22:00 Chloride IV Q12 KRYSTIN Vancomycin HCl 1,000 mg in 200 mls @ 200 mls/hr 01/10/25 02:00 Vancomycin IV Q12H [facility] Insulin Glargine 20 unit 01/09/25 22:00 Insulin Glargine-Yfgn 100 Unit/Ml Pen SC QHS [facility] Insulin Glargine 20 unit 01/10/25 10:00 Insulin Glargine-Yfgn 100 Unit/Ml Pen SC DAILY [facility] Insulin Human Lispro 0 unit 01/09/25 16:00 01/09/25 16:27 Insulin Lispro 100 Unit/Ml Insuln.Pen SC Not Given ACHS [facility] Protocol Lactulose 10 gm 01/09/25 15:46 Lactulose 20 Gm/30 Ml Udc PO TID PRN constipation Magnesium Chloride 128 mg 01/10/25 10:00 Magnesium Chloride 64 Mg Delay Rel.Tablet PO DAILY [facility] Midodrine 10 mg 01/09/25 17:00 01/09/25 17:10 Midodrine Hcl 5 Mg Tablet PO 10 mg TIDCM [facility] Administration Ondansetron HCl 4 mg 01/09/25 15:46 Ondansetron 4 Mg/2 Ml Vial IV Q8H PRN PRN NAUSEA/VOMITING Pantoprazole Sodium 20 mg 01/10/25 10:00 Pantoprazole Sodium 20 Mg Tablet PO DAILY [facility] Potassium Phos/Sodium Phos 1 packet 01/09/25 22:00 Na Biphos/Potassium Phosphate Packet PO BID [facility] Rifaximin 550 mg 01/09/25 22:00 Rifaximin 550 Mg Tablet PO BID [facility] Sodium Bicarbonate 650 mg 01/09/25 22:00 Sodium Bicarbonate 650 Mg Tablet PO BID [facility] Sodium Chloride 10 - 40 ml 01/09/25 15:34 0.9% Saline Lock 10 Ml Syringe IV UD PRN SALINE FLUSH Thiamine HCl 100 mg 01/10/25 10:00 Thiamine Hydrochloride 100 Mg Tablet PO DAILY [facility] Vancomycin Protocol 1 lab 01/11/25 00:30 Vancomycin Trough/Random Due MC 01/11/25 02:30 DAILY [facility] Zinc Sulfate 50 mg 01/10/25 10:00 Zinc Sulfate 50 Mg Zinc (220 Mg) Oral Capsule PO DAILY [facility] Lab / Micro Data 01/09/25 10:40 01/09/25 [...] 80.6 H, Lymph % (Auto) 7.2 L, [place] % (Auto) 6.7, Eos % (Auto) 4.2, [...] hypertension. No liver masses identified. Reading Location: [facility] Assessment and Plan . Assessment and [...] (if applicable): CC: YG Elias~ Signed [facility] Work Phone: 1(343) 289-687806-08-2025 Consult note Author Peter Carvajal [facility] Note Date/Time January 09, 2025 5:42p m [facility] Medical Records Department [address] [place] [address] Pharmacokinetic/Renal -Consult 01/09/25 1602 MR#: [id number] Acct: [id number] Name: FRANKLIN WIGGINS Rep #:[id number] : [...] 0130 01/09/25 1603 <Electronically signed by Peter Mahajan r> Date _ Peter Carvajal 01/09/25 1742 <Electronically signed by Yaritza Lucero O> Cosigner Signature (if applicable): Date Yaritza Leo DO CC: ~ Signed [facility] Work Phone: [phone]) [phone] History and physical note Author Yaritza Leo [facility] Note Date/Time January 09, 2025 5:41p m [facility] Medical Records Department [address] [place] [address] H&P Exam - Hospitalist 01/09/25 1408 MR#: [id number] Acct: [id number] Name: FRANKLIN WIGGINS Rep #:[id number] : 1965 59 From: Yaritza Leo DO PCP: YG Pena Status:ADM I N Location: ICU CVICU20 1-1 HPI - General General Date of Admission: 01/09/25 Date of Service: 01/09/25 Chief Complaint: Suprapubic abdominal pain HPI Narrative FRANKLIN WIGGINS, is a 59 M who presented to the emergency department [facility] on 01/09/2025 due to back pain and [...] medical history and currently resides at an [facility]. He denies any fever or chills. He [...] a repeat of 89/59 and pulse ox sxx984% on room air. CBC showed a leukocytosis [...] he was treated with 30 cc/kg bolus. [facility] Medical History (Updated 01/09/25 @ 17:18 [...] 80.6 H, Lymph % (Auto) 7.2 L, [place] % (Auto) 6.7, Eos % (Auto) 4.2, [...] hypertension. No liver masses identified. Reading [facility] Assessment & Plan Assessment/Plan (1) Sepsis: [...] currently 102/60) Charges/Coding Visit Charges Inpatient E&M: 49205 Init Hosp L3 01/09/25 7464 <Electronically signed by Yaritza Leo DO> Cosigner Signature (if applicable): CC: YG Elias; Dr. Yaritza Leo DO~ Signed [facility] Work Phone: 1([phone]) [phone] Discharge summary Author Breann Mendez [facility] Note Date/Time January 09, 2025 4:26p m [facility] Medical Records Department [address] [place] [address] Emergency Department Summary 01/09/25 MR#: [id number] Acct: [id number] Name: FRANKLIN WIGGINS Rep #:[id number] : [...] denies urinary symptoms. Patient is from a long term and normally ambulates with a walker. Patient has history of cirrhosis and history of diabetes as well as high cholesterol. Patient has had prior paracentesis. Currently rates his pain about a 5 out of 10. He does not want thing for pain currently. [facility] Medical History Weakness Diarrhea Sepsis Acidosis, lactic Acute hypotension Acute UTI Chronic hypotension Obesity (BMI 30-39.9) Chronic back pain ISABEL (acute kidney injury) Hypotension Hepatic encephalopathy Hyperbilirubinemia Liver cirrhosis secondary to OBYER (nonalcoholic steatohepatitis) HLD (hyperlipidemia) HTN (hypertension) Thrombocytopenia Chronic anemia Former tobacco use Diabetes mellitus, type 2 ABBY on CPAP Back pain Home Medications ?Medication ?Instructions ?Recorded ?Last Taken ?Type rifaximin 550 mg tablet (Xifaxan) 550 mg PO BID alisa ea #60 tabs 09/02/24 11/28/24 Rx acetaminophen [...] 80.6 H Lymph % (Auto) 7.2 L [place] % (Auto) 6.7 Eos % (Auto) 4.2 [...] Clarity Turbid Urine pH 6.0 Ur Specific [place] 1.015 Urine Protein 500 H Urine Glucose [...] hypertension. No liver masses identified. Reading Location[facility] Critical Care Time Critical care time (excluding procedures): 30-74 minutes, Including time spent:,Discussing w/Patient &/or Family/Manager Land, Discussing w/Consultants, ArrangingAdmission or Transfer, Performing Direct [...] NP-C [Primary Care Provider] - Print Language: Guyanese Disposition Disposition: Acute Care Hospital [facility] What to do if you have Problems For any increased pain, shortness of breath, bleeding, nausea or vomiting, chestpain, or any unexpected problems, contact your Primary Care Provider. Call [facility] ([phone]) or report to the closest Emergency Room. Call 911 if necessary. 01/09/25 9624 <Electronically signed by Breann Mendez DO> Cosigner Signature (if applicable): CC: YG Elias ~ Signed [facility] Work Phone: 1(279) 989-403406-08-2025 Radiology Diagnostic study [facility]06-04-2025 Consult note Author Kourtney Reece [facility] Note Date/Time January 05, 2025 5:01p [facility] Medical Records Department [address] [address] Counseling Note - Pharmacy 01/05/25 1447 MR#: [id number] Acct: [id number] Name: FRANKLIN WIGGINS Rep #:[id number] : 1965 59 From: Kourtney Reece PCP: BRITTANY PenaC Status:ADM I N Y Location: [place] [address] Pharmacy [place] Med Reconciliation Pharmacy Service has performed discharge [...] solution (Constulose) 15 ml PO TID PRN gbiiklcobcqn51/27/25 L.acidophil,salivari-Bifido bifidum-Strep thermoph 175 mg capsule 1 [...] (if applicable): Date CC: ~ Signed [facility] Work Phone: [phone]) [phone] Discharge summary Author Hill Acuña [facility] Note Date/Time January 05, 2025 2:07p yohannes [facility] Medical Records Department [address] [place] [address] Discharge Summary 01/05/25 1404 MR#: [id number] Acct: [id number] Name: FRANKLIN WIGGINS Rep #:[id number] : 1965 59 From: Hill Acuña MD PCP: YG Pena Status:ADM I N Location: [place] [address] Providers Date of Admission: 01/02/25 Date of [...] Secondary to multiple medical comorbidities. Transfer to long-term facility had been recommended to patient during previous hospitalization he did decline. I had a discussion with patient he is amenable to entertaining the idea of going to long-term facility. Subsequently requested for PT OT eval and drug abuse social worker to assist with discharge planning ? 01/03/2025; plan is to discuss with case management regarding disposition ? 01/05/2025; awaiting insurance pre-CERT prior to transfer to long-term facility ? Patient was discharged to long-term facility once insurance. 2. Severe hypokalemia ? [...] solution (Constulose) 15 ml PO TID PRN xfjkuhkinmkl55/27/25 L.acidophil,salivari-Bifido bifidum-Strep thermoph 175 mg capsule 1 [...] (Auto) 69.1, Lymph % (Auto) 13.4 L, [place] % (Auto) 11.6 H, Eos % (Auto) [...] Shelter Facility Charges/Coding Visit Charges Inpatient E&M: 05500 Disch Hosp >30min 01/05/25 1407 <Electronically signed by Hill Acuña MD> Cosigner Signature (if applicable): CC: YG Elias; Dr. Hill Acuña MD~ Signed [facility] Work Phone: [phone]) 449-143806-04-2025 Discharge summary Author Hill Acuña [facility] Note Date/Time January 05, 2025 2:04p m [facility] Medical Records Department [address] [place] [address] Transfer to Extended Care MR#: [id number] Acct: [id number] Name: FRANKLIN WIGGINS Rep #:[id number] : 1965 59 From: Hill Acuña MD PCP: YG Pena Status:ADM I N Certification of patient admission REQUIRED AT TIME OF ADMISSION. I CERTIFY THAT POST-HOSPITAL ECF SERVICES ARE REQUIRED TO BE GIVEN ON AN IN-PATIENT BASIS BECAUSE OF THE ABOVE NAMED PATIENT'S NEED FOR INTERMEDIATE CARE ON A CONTINUING BASIS FOR THE [...] Secondary to multiple medical comorbidities. Transfer to long-term facility had been recommended to patient during previous hospitalization he did decline. I had a discussion with patient he is amenable to entertaining the idea of going to long-term facility. Subsequently requested for PT OT eval and drug abuse social worker to assist with discharge planning ? 01/03/2025; plan is to discuss with case management regarding disposition ? 01/05/2025; awaiting insurance pre-CERT prior to transfer to long-term facility 2. Severe hypokalemia ? Patient potassium [...] was on metformin held did continue with [employer] ACHS with sliding scale coverage ? 01/03/2025; [...] 0RF Referrals / Follow Up: Josy Elias ACCESS ANALYST-C [Primary Care Provider] - Disposition Disposition (needs filled in before D/C Order can be placed): Shelter Facility 01/05/25 1404 <Electronically signed by Hill Acuña MD> Cosigner Signature (if applicable): CC: ACCESS ANALYST-C Josy Elias; Dr. Buster Fuchs MD ~ [facility] Work Phone: 1(389) 318-771006-04-2025 Progress note Author Hill Acuña [facility] Note Date/Time January 05, 2025 11:01 am [facility] Medical Records Department [address] [place] [address] Progress Note - Hospitalist 01/05/25 0737 MR#: [id number] Acct: [id number] Name: FRANKLIN WIGGINS Rep #:[id number] : 1965 59 From: Hill Acuña MD PCP: YG Pena Status:ADM I N Location: [place] [address] Reason for Visit Reason for Visit: Diagnoses Acute kidney failure, unspecified (01/02/25) Unspecified fall, initial encounter (01/02/25) Subjective Subjective Patient seen blood glucose control not optimal further adjustment made to patient insulin regimen. Patient awaiting insurance precertification prior to transfer to long-term facility Objective Data Objective Data Vital Signs: [...] (Auto) 69.1, Lymph % (Auto) 13.4 L, [place] % (Auto) 11.6 H, Eos % (Auto) [...] Secondary to multiple medical comorbidities. Transfer to long-term facility had been recommended to patient during previous hospitalization he did decline. I had a discussion with patient he is amenable to entertaining the idea of going to long-term facility. Subsequently requested for PT OT eval and drug abuse social worker to assist with discharge planning ? 01/03/2025; plan is to discuss with case management regarding disposition ? 01/05/2025; awaiting insurance pre-CERT prior to transfer to long-term facility 2. Severe hypokalemia ? Patient potassium [...] SCDs for Charges/Coding Visit Charges Inpatient E&M: 60186 Subs Hosp L2 01/05/25 1101 <Electronically signed by Hill Acuña MD> Cosigner Signature (if applicable): CC: ~ Signed [facility] Work Phone: 1(380) [phone] Progress note Author Hill Acuña [facility] Note Date/Time January 04, 2025 10:[address] [facility] Medical Records Department [address] [place] [address] Progress Note - Hospitalist 01/04/25 1014 MR#: [id number] Acct: [id number] Name: FRANKLIN WIGGINS Rep #:[id number] : 1965 59 From: Hill Acuña MD PCP: YG Pena Status:ADM I N Location: [place] [address] Reason for Visit Reason for Visit: Diagnoses [...] Secondary to multiple medical comorbidities. Transfer to long-term facility had been recommended to patient during previous hospitalization he did decline. I had a discussion with patient he is amenable to entertaining the idea of going to long-term facility. Subsequently requested for PT OT eval and drug abuse social worker to assist with discharge planning [...] SCDs for Charges/Coding Visit Charges Inpatient E&M: 27437 Subs Hosp L2 01/04/25 1018 <Electronically signed by Hill Acuña MD> Cosigner Signature (if applicable): CC: ~ Signed [facility] Work Phone: 1(136) 411-302206-02-2025 Progress note Author Hill Acuña [facility] Note Date/Time January 03, 2025 9:52a m [facility] Medical Records Department [address] [facility] [place] [address] Progress Note - Hospitalist 01/03/25 0839 MR#: [id number] Acct: [id number] Name: FRANKLIN WIGGINS Rep #:[id number] : 1965 59 From: Hill Acuña MD PCP: YG Pena Status:ADM I N Location: [place] [address] Reason for Visit Reason for Visit: Diagnoses [...] (Auto) 67.5, Lymph % (Auto) 13.9 L, [place] % (Auto) 11.5 H, Eos % (Auto) [...] Secondary to multiple medical comorbidities. Transfer to long-term facility had been recommended to patient during previous hospitalization he did decline. I had a discussion with patient he is amenable to entertaining the idea of going to long-term facility. Subsequently requested for PT OT eval and drug abuse social worker to assist with discharge planning [...] SCDs for Charges/Coding Visit Charges Inpatient E&M: 07368 Subs Hosp L2 01/03/25 0952 <Electronically signed by Hill Acuña MD> Cosigner Signature (if applicable): CC: ~ Signed [facility] Work Phone: 1(129) 201-606506-01-2025 Progress note Author Hill Acuña [facility] Note Date/Time January 02, 2025 9:58a m [facility] Medical Records Department [address] [place] [address] Progress Note - Hospitalist 01/02/25 0736 MR#: [id number] Acct: [id number] Name: FRANKLIN WIGGINS Rep #:[id number] : 1965 59 From: Hill Acuña MD PCP: Josy Tannhof, ACCESS ANALYST-C Status:ADM I N [facility] Reason for Visit Reason for Visit: Diagnoses Acute kidney failure, unspecified (01/02/25) Unspecified fall, initial encounter (01/02/25) Subjective Subjective Patient is a 59-year-old gentleman with recent multiple hospitalization presented to the emergency department with progressive generalized weakness and vomiting. This was apparently his third visit to the ED within a week. Patienthad been encouraged to be discharged to a long-term facility he however declined. Objective Data Objective [...] (Auto) 68.0, Lymph % (Auto) 12.2 L, [place] % (Auto) 11.9 H, Eos % (Auto) [...] insufficiency fracture again noted, unchanged. Reading Location: [facility] Brain CT 01/02/25 03:55 IMPRESSION: No intracranial hemorrhage, mass effect or calvarial fracture. Moderate volume loss, atrophy again noted. Mild left maxillary sinus disease appears mildly decreased from the prior study. Reading Location: [facility] Cervical Spine CT 01/02/25 03:55 IMPRESSION: No fracture or malalignment. Multilevel spondylosis/discogenic change greatest at C5-6 Reading Location: [facility] Physical Exam Narrative GENERAL: cooperative HEENT: [...] Secondary to multiple medical comorbidities. Transfer to long-term facility had been recommended to patient during previous hospitalization he did decline. I had a discussion with patient he is amenable to entertaining the idea of going to long-term facility. Subsequently requested for PT OT eval and drug abuse social worker to assist with discharge planning [...] documentation, 38Minutes Charges/Coding Visit Charges Inpatient E&M: 95296 PROLNG IP/OBS E/M EA 15 MIN Multi Select Codes Visit Charges Visit Charges: 47880 PROLNG IP/OBS E/M EA 15 MIN 01/02/25 0958 <Electronically signed by Hill Acuña MD> Cosigner Signature (if applicable): CC: ~ Signed [facility] Work Phone: 1(360) 387-170106-01-2025 History and physical note Author Buster Fuchs 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 Was not considered to be a liver transplant candidate and was placed on anticoagulation. He has had a couple of readmissions for weakness and debility. [place] to possibly have aUTI given a staghorn [...] Heis receiving potassium infusion in the ER. [facility] Medical History Weakness Diarrhea Sepsis Acidosis, [...] (Auto) 68.0, Lymph % (Auto) 12.2 L, [place] % (Auto) 11.9 H, Eos % (Auto) [...] insufficiency fracture again noted, unchanged. Reading Location: [facility] Brain CT 01/02/25 03:55 IMPRESSION: No intracranial hemorrhage, mass effect or calvarial fracture. Moderate volume loss, atrophy again noted. Mild left maxillary sinus disease appears mildly decreased from the prior study. Reading Location: [facility] Cervical Spine CT 01/02/25 03:55 IMPRESSION: No fracture or malalignment. Multilevel spondylosis/discogenic change greatest at C5-6 Reading Location: [facility] Assessment & Plan Assessment/Plan (1) Fall: [...] once verified Charges/Coding Visit Charges Inpatient E&M: 02256 Init Hosp L2 01/02/25 0644 <Electronically signed by Buster Fuchs MD> Cosigner Signature (if applicable): CC: YG Elias; Dr. Buster Fuchs MD~ Signed [facility] Work Phone: 1(208) 411-325606-01-2025 Discharge summary Author Roddy Reeves [facility] Note Date/Time January 02, 2025 6:00a m [facility] Medical Records Department [address] [place] [address] Emergency Department Summary 01/02/25 MR#: [id number] Acct: [id number] Name: ROSALIEFRANKLIN CARMELA Rep #:[id number] : 1965 59 From: Roddy Reeves DO PCP: Josy Elias NP-[place] Status:REG E R Location: ED HPI History [...] was here recently and was sent home. [facility] Medical History Weakness Diarrhea [...] Patient following commands that [facility] wewere in the end of December [...] (Auto) 68.0 Lymph % (Auto) 12.2 L [place] % (Auto) 11.9 H Eos % (Auto) [...] Clarity Turbid Urine pH 6.0 Ur Specific [place] 1.015 Urine Protein 100 H Urine Glucose [...] insufficiency fracture again noted, unchanged. Reading Location: [facility] Brain CT 01/02/25 03:55 IMPRESSION: No intracranial hemorrhage, mass effect or calvarial fracture. Moderate volume loss, atrophy again noted. Mild left maxillary sinus disease appears mildly decreased from the prior study. Reading Location: [facility] Cervical Spine CT 01/02/25 03:55 IMPRESSION: No fracture or malalignment. Multilevel spondylosis/discogenic change greatest at C5-6 Reading Location: [facility] Discharge Plan Triage Chief Complaint: Weakness [...] NP-C [Primary Care Provider] - Print Language: Guyanese Disposition Disposition: Acute Care Hospital [facility] What to do if you have Problems For any increased pain, shortness of breath, bleeding, nausea or vomiting, chestpain, or any unexpected problems, contact your Primary Care Provider. Call [facility] ([phone]) or report to the closest Emergency Room. Call 911 if necessary. 01/02/25 0600 <Electronically signed by Roddy Reeves DO> Cosigner Signature (if applicable): CC: YG Elias ~ Signed [facility] Work Phone: 1(633) 621-121906-01-2025 Radiology Diagnostic study [facility]06-01-2025 Radiology Diagnostic study [facility]06-01-2025 Radiology Diagnostic study [facility] 12-30-2024 Radiology Diagnostic study [facility]05-25-2025 Radiology Diagnostic study [facility]05-14-2025 Radiology Diagnostic study [facility]04-20-2025 Radiology Diagnostic study [facility]04-17-2025 Telephone encounter Note* Telephone Encounter - [...] will be scheduled to follow up with [facility] Clinical Data Manager. JEANNINE asked that Dr. Mosley inform this pt that he can return to our transplant center again and be re-evaluated once he has addressed his prohibitive psychosocial concerns (lack of caregivers, unstable housing, unstable finances, unreliable transportation). Dr. Mosley agreed to do so. [facility] Work Phone: 1(433) 761-457104-17-2025 Miscellaneous Notes* Telephone Encounter - Marah Arauz [...] be scheduled to follow up with F Clinical Data Manager. JEANNINE asked that Dr. Mosley inform this pt that he can return to our transplant center again and be re-evaluated once he has addressed his prohibitive psychosocial concerns (lack of caregivers, unstable housing, unstable finances, unreliable transportation). Dr. Mosley agreed to do so. documented in [facility]04-17-2025 Telephone encounter Note * Telephone Encounter - Jeremi Abreu, DAYSI - 11/18/2024 10:01 AM EDT Inpatient hepatology team spoke with Franklin Wiggins to advise him that his case was discussedat liver transplant selection committee on 11/17/2024 and he was declined for liver transplant due to social issues that include unstable housing, lack of income, lack of caregivers and lack of transportation. . Jeremi Abreu RN, BSN Liver Senior Courtroom Clerk [facility] Work Phone: [phone]) 173-322004-17-2025 Miscellaneous Notes* Telephone Encounter - Jeremi Abreu [...] transportation. . Jeremi Abreu RN, BSN Liver Senior Courtroom Clerk documented in this encounterParkwood Hospital04-17-2025 Note[facility]17-2025 NoteSelect [...] 15, 2024 2:35 PM documented in this encounterParkwood Hospital04-14-2025 NoteSelect [facility] [place]04-14-2025 History of Present illness Narrative* Virgil Farley DDS - 11/15/2024 1:48 PM EDTSummary: Liver Transplant Dental Bedside Clearance See inpatient note for this encounter on 11/15/2024. Virgil Farley DDS documented in this encounterParkwood Hospital04-14-2025 NoteSelect [facility] [place]04-13-2025 NoteSelect [...] mg capsule(s) rifAXIMin 550 mg tab(s) (XIFAXAN) oycukvb-itekheiax-iysnsta D3 500 mg-5 mcg (200 unit) 1 [...] Guzman, Pharm[facility] Clinical Specialist Pager: [phone] documented in this encounterParkwood Hospital04-11-2025 NoteSelect [facility] [place]04-11-2025 NoteSelect [facility] [place]04-11-2025 History of Present illness Narrative* Jeremi Abreu, DAYSI - 11/12/2024 2:52 PM EDT The following information has been provided/discussed with the patient/family during Shared MedicalAppointment education class: Informed Consent for Organ Transplant Program Participation version February 20, 2023. SRTR information provided and questions answered. Informed patient to call patient placement coordinator with any questions. UNOS information regarding multiple listings for organ transplantation Evaluation process including presentation to selection committee and listing criteria Surgical procedure, including post-operative management, hospitalization, immunosuppressive medications and their side effects (including the risk for hypertension, diabetes, kidney problems and cancers) and [place] [facility] follow up after transplant. Possibility of recurrent [...] was also addressed Patient was provided with [facility] information sheet regarding transplantation of HepatitisC [...] In Department: TRANSPLANT CENTER documented in this encounterParkwood Hospital04-11-2025 NoteSelect [facility] [place]04-11-2025 History [...] 12, 2024 1:16 PM documented in this encounterParkwood Hospital04-11-2025 Miscellaneous Notes* Telephone Encounter - Jeremi Abreu RN - 11/12/2024 12:08 PM EDT INFORMED CONSENT Franklin Cornellelman Medical Record: [id number] Informed consent for Organ Transplant Program Participation [...] questions answered. Jeremi Abreu RN, BSN Liver Senior Courtroom Clerk documented in this encounterParkwood Hospital04-11-2025 Telephone encounter Note * Telephone Encounter - Jeremi Abreu RN - 11/12/2024 12:08 PM EDT INFORMED CONSENT Franklin Cornellelman Medical Record: [id number] Informed consent for Organ Transplant Program Participation [...] questions answered. Jeremi Abreu RN, BSN Liver Senior Courtroom Clerk [facility] Work Phone: [phone]) 306-449904-11-2025 [facility]04-11-2025 NoteHNO ID: [id number] Author: KIRTI VELÁSQUEZ RN Service: Nursing Author Type: Registered Nurse Type: Nursing Progress Note Filed: 11/12/2024 00:58 Note Text: Other: PTTAC-no clot detected at 320-heparin gtt stopped-need futher orders-ribbon cleaner notifiedSelect Medical Specialty [facility] [place]04-10-2025 NoteSelect [facility] [place] 11-11-2024 NoteSelect [facility] [place]04-10-2025 NoteSelect [facility] [place]04-09-2025 Discharge summary Author Kathie Powers [facility] Note Date/Time November 10, 2024 8:42 pm [facility] Medical Records Department [address] [place] [address] Discharge Summary 11/10/241936 MR#: [id number] Acct: [id number] Name: FRANKLIN WIGGINS Rep #:[id number] : 1965 59 From: Kathie Powers MD PCP: Care Physician,No Primary Status :ADM IN Location: [place] [address] Providers Date of Admission: 10/29/24 Date of Discharge: 11/10/24 Primary Care Physician: No Primary Care Phys Consultations 10/29/24 01:15 Consult: Urology Routine Consulting Provider: Foster Rascon Reason for Consult: Sepsis with UTI and Staghorn Calculus. EMERGENT Consult: No MD Notified: Yes Date Notified: 10/29/24 Time Notified: 08:07 Method of Notification: Verbal 10/29/24 01:47 Consult: [employer] / Pulmonary Medicine Routine Consulting Provider: Intensivists/Pulmonary Med Reason for Consult: Sepsis, UTI, Diarrhea, Abdominal Pain and Back Pain. EMERGENT Consult: No Notified: Yes Date Notified: 10/29/24 Time Notified: 04:58 Method of Notification: Text 10/30/24 03:54 Consult: Gastroenterology Routine Consulting Provider: [facility] Reason for Consult: BOYER, elevated ammonia EMERGENT Consult: No Notified: Yes Date Notified: 10/30/24 Time Notified: 07:31 Method of Notification: Text 11/09/24 21:26 Consult: Gastroenterology Routine Consulting Provider: [facility] Reason for Consult: cirrhosis,ascites,splenic thrombosis, low plts, possible dec in heidy motili EMERGENT Consult: No MD Notified: Yes Date Notified: 11/10/24 Time Notified: 05:35 Method of Notification: Text Consult: Oncology/Hematology Routine Consulting Provider: [facility] Reason for Consult: splenic [...] staghorn colliculi, cirrhosis who presented to [facility] ED 10/29/2024 with sepsis and was [...] heme-onc was in agreement. Reach out to [facility] and ultimately patient was accepted by the railroad worker Dr. Neal. Patient with bed assignment 11/10, patient to be transferred to [facility] Physical Exam Narrative General: Sleeping but [...] 83.0 H, Lymph % (Auto) 6.6 L, [place] % (Auto) 6.9, Eos % (Auto) 1.9, [...] Clarity Turbid, Urine pH 6.5, Ur Specific [place] 1.015, Urine Protein 500 H, Urine Glucose (UA) Normal, Urine Ketones 5 H, Urine Occult Blood 250 H, Urine Nitrite Positive H, Urine BilirubinNegative, Urine Urobilinogen 1 H, Ur Leukocyte Esterase 500 H, Urine RBC > 100 SEEN, Urine WBC 5-10 SEEN, Ur Squamous Epith Cells 0 SEEN, Urine Bacteria 2+, Urine Mucus 0 SEEN 11/10/24 16:41: POC Glucose 271 H Microbiology: Microbiology 03/28/25 01:00 Blood Culture (Wb) - Anticubital Left [...] with sequela of portal hypertension. Reading Location: [facility] D/C Instructions DC O2, CPAP, BIPAP Needs [...] Garza; Zachariah Glover; Scott Weston; Yue Delgadillo ACCESS ANALYST Discharge Orders/Prescriptions Prescriptions: No Action lidocaine 5 [...] pain) Referrals / Follow Up: [facility]rit[facility] [Provider Group] - In 1 Week Care Physician,No Primary [Primary Care Provider] - Disposition Disposition (needs filled in before D/C Order can be placed): Acute Care Hospital Charges/Coding Visit Charges Inpatient E&M: 45946 Disch Hosp >30min 11/10/242041 <Electronically signed by Kathie Powers MD> Cosigner Signature (if applicable): CC: Dr. Kathie Powers MD; No Primary Care Physician~ Signed [facility] Work Phone: 1(902) 941-378404-09-2025 Discharge summary Author Kathie Powers [facility] Note Date/Time November 10, 2024 7:37 pm [facility] Medical Records Department [address] [place] [address] Instructions for Home/Discharge Instructions 11/10/241935 MR#: [id number] Acct: [id number] Name: FRANKLIN WIGGINS Rep #:[id number] : [...] Garza; Zachariah Glover; Scott Weston; Yue Delgadillo ACCESS ANALYST Discharge Orders/Prescriptions Prescriptions: No Action lidocaine 5 [...] or pain) [facility] Care Physician,No Primary [Primary Care Provider] - Disposition Disposition (needs filled in before D/C Order can be placed): [facility] 11/10/241936<Electronically signed by Kathie Powers MD>Kathie Powers MD CC: MOE-Pastora Delgadillo; Dr. Hill Herrmann MD; Dr. Hill Acuña MD; Dr. Hill Caro DO; Dr. Thiago Wray MD; Dr. Blair Cage MD; Dr. Foster Gresham MD; Dr. Gabbi Hughes MD; Dr. Buster Fuchs MD; Dr. Thai Godfrey MD; Dr. Zachariah Glover MD; Dr. Juan Daniel Garza MD; Dr. Scott Weston DO; No Primary Care Physician ~ Signed [facility] Work Phone: 1([phone]) 166-228104-09-2025 Consult note Author Foster Rascon [facility] Note Date/Time November 10, 2024 8:[address] [facility] Medical Records Department [address] [place] [address] Consultation 11/10/24 0857 MR#: [id number] Acct: [id number] Name: FRANKLIN WIGGINS Rep #:[id number] : 1965 59 From: Foster Rascon MD PCP: Care Physician,No Primary Status :ADM IN Location: [place] [address] Consult Date of Consult: 11/10/24 59-year-old male [...] CC: No Primary Care Physician~ Signed [facility] Work Phone: 1(350) 870-167304-08-2025 Progress note Author Kathie Powers [facility] Note Date/Time November 09, 2024 9:26 pm [facility] Medical Records Department [address] [place] [address] Progress Note - Hospitalist 11/09/241 MR#: [id number] Acct: [id number] Name: FRANKLIN WIGGINS Rep #:[id number] : 1965 59 From: Kathie Powers MD PCP: Care Physician,No Primary Status :ADM IN Location: [place] [address] scan w/ ascites and [...] Signature (if applicable): CC: ~ Signed [facility] Work Phone: 1(959) 358-769704-08-2025 Progress note Author Kathie Powers [facility] Note Date/Time November 09, 2024 6:[address] [facility] Medical Records Department [address] [place] [address] Progress Note - Hospitalist 11/09/24 185 MR#: [id number] Acct: [id number] Name: FRANKLIN WIGGINS Rep #:[id number] : 1965 59 From: Kathie Powers MD PCP: Care Physician,No Primary Status :ADM IN Location: [place] [address] Reason for Visit Reason for Visit: Diagnoses [...] 79.1 H, Lymph % (Auto) 8.2 L, [place] % (Auto) 8.1, Eos % (Auto) 3.0, [...] with interval NG tube removal. Reading Location: [facility] Rhythm Strip Rhythm Strip: Sinus Rhythm [...] 42 Minutes Charges/Coding Visit Charges Inpatient E&M: 75606 Subs Hosp L2 11/09/24 1852 <Electronically signed by Kathie Powers MD> Cosigner Signature (if applicable): CC: ~ Signed [facility] Work Phone: 1(314) 699-234504-08-2025 Radiology Diagnostic study [facility]04-08-2025 Radiology Diagnostic study [facility]04-07-2025 Progress note Author Kathie Powers [facility] Note Date/Time November 08, 2024 6:26 pm [facility] Medical Records Department [address] [place] [address] Progress Note - Hospitalist 11/08/24 1441 MR#: [id number] Acct: [id number] Name: ROSALIEFRANKLIN CARMELA Rep #:[id number] : 1965 59 From: Kathie Powers MD PCP: Care Physician,No Primary Status :ADM IN Location: [place] [address] Reason for Visit Reason for Visit: Diagnoses [...] 45 L*, MPV 12.0, Diff Path Review May , Sodium 126 L, Potassium 3.6, Chloride 102, [...] 56 Minutes Charges/Coding Visit Charges Inpatient E&M: 15902 Subs Hosp L3 11/08/24 1503 <Electronically signed [...] Signature (if applicable): cc: ~* Signed [facility] Work Phone: 1([phone]) 811-322404-06-2025 Progress note Author Hill Acuña [facility] Note Date/Time November 07, 2024 10:3 8am [facility] Medical Records Department [address] [place] [address] Progress Note - Hospitalist 11/07/24 0913 MR#: [id number] Acct: [id number] Name: FRANKLIN WIGGINS Rep #:[id number] : 1965 59 From: Hill Acuña MD PCP: Care Physician,No Primary Status :ADM IN Location: [place] [address] Reason for Visit Reason for Visit: Diagnoses [...] 81.5 H, Lymph % (Auto) 6.9 L, [place] % (Auto) 6.9, Eos % (Auto) 2.3, [...] ? Requested for PT OT eval and drug abuse social worker to assist with discharge planning ? 11/05/2024; plan is for patient to be discharged home when medically stable. Patient does not qualify for home health as he currently does not have a primarycare physician he has been given a referral to [facility] 1 Time spent in the patient's overall evaluation,decision-making process, review of diagnostic data, adjustment of management, discussion with other providers, nursing nursing and ancillary staff involved in patient's care documentation, 36 Minutes Charges/Coding Visit Charges Inpatient E&M: 25353 Subs Hosp L2 11/07/24 1038 <Electronically signed by Hill Acuña MD> Cosigner Signature (if applicable): CC: ~ Signed [facility] Work Phone: 1(781) 655-344004-05-2025 Progress note Author Hill Acuña [facility] Note Date/Time November 06, 2024 10:[address] [facility] Medical Records Department [address] [place] [address] Progress Note - Hospitalist 11/06/24 0756 MR#: [id number] Acct: [id number] Name: FRANKLIN WIGGINS Rep #:[id number] : 1965 59 From: Hill Acuña MD PCP: Care Physician,No Primary Status :ADM IN Location: [place] [address] Reason for Visit Reason for Visit: Diagnoses [...] ? Requested for PT OT eval and drug abuse social worker to assist with discharge planning ? 11/05/2024; plan is for patient to be discharged home when medically stable. Patient does not qualify for home health as he currently does not have a primarycare physician he has been given a referral to [facility] Time spent in the patient's overall evaluation,decision-making process, review of diagnostic data, adjustment of management, discussion with other providers, nursing nursing and ancillary staff involved in patient's care documentation, 36 Minutes Charges/Coding Visit Charges Inpatient E&M: 97685 Subs Hosp L2 11/06/24 1057 <Electronically signed by Hill Acuña MD> Cosigner Signature (if applicable): CC: ~ Signed [facility] Work Phone: 1(399) 373-162904-04-2025 Progress note Author Hill Acuña [facility] Note Date/Time November 05, 2024 9:26 am [facility] Medical Records Department [address] [place] [address] Progress Note - Hospitalist 11/05/24 0924 MR#: [id number] Acct: [id number] Name: FRANKLIN WIGGINS Rep #:[id number] : 1965 59 From: Hill Acuña MD PCP: Care Physician,No Primary Status :ADM IN Location: [place] [address] Reason for Visit Reason for Visit: Diagnoses [...] 81.0 H, Lymph % (Auto) 6.7 L, [place] % (Auto) 7.1, Eos % (Auto) 2.3, [...] ? Requested for PT OT eval and drug abuse social worker to assist with discharge planning ? 11/05/2024; plan is for patient to be discharged home when medically stable. Patient does not qualify for home health as he currently does not have a primarycare physician he has been given a referral to [facility] Time spent in the patient's overall evaluation,decision-making process, review of diagnostic data, adjustment of management, discussion with other providers, nursing nursing and ancillary staff involved in patient's care documentation, 38 Minutes Charges/Coding Visit Charges Inpatient E&M: 63929 Subs Hosp L2 11/05/24 0926 <Electronically signed by Hill Acuña MD> Cosigner Signature (if applicable): CC: ~ Signed [facility] Work Phone: 1(259) 674-481104-03-2025 Progress note Author Hill Acuña [facility] Note Date/Time November 04, 2024 11:5 0am [facility] Medical Records Department [address] [place] [address] Progress Note - Hospitalist 11/04/24 1105 MR#: [id number] Acct: [id number] Name: FRANKLIN WIGGINS Rep #:[id number] : 1965 59 From: Hill Acuña MD PCP: Care Physician,No Primary Status :ADM IN Location: [place] [address] Reason for Visit Reason for Visit: Diagnoses [...] 83.6 H, Lymph % (Auto) 4.9 L, [place] % (Auto) 5.9, Eos % (Auto) 1.1, Baso % (Auto) 0.5, Absolute Neuts (auto) 24.0 H, Absolute Lymphs (auto) 1.41, Nucleated RBC % 0, Differential Comment SCANNED, Diff Path Review December tai, Platelet Estimate SLT DEC, Sodium 131 L, [...] ? Requested for PT OT eval and drug abuse social worker to assist with discharge planning Time spent in the patient's overall evaluation,decision-making process, review of diagnostic data, adjustment of management, discussion with other providers, nursing nursing and ancillary staff involved in patient's care documentation, 38 Minutes Charges/Coding Visit Charges Inpatient E&M: 40519 Subs Hosp L2 11/04/24 1150 <Electronically signed by Hill Acuña MD> Cosigner Signature (if applicable): CC: ~ Signed [facility] Work Phone: 1(562) 127-882804-03-2025 Progress note Author [facility] Note Date/Time November 04, 2024 6:43 am [facility] Medical Records Department [address] [place] [address] Progress Note - Hospitalist 11/04/24 0642 MR#: [id number] Acct: [id number] Name: FRANKLIN WIGGINS Rep #:[id number] : 1965 59 From: Maria Guadalupe Shore MD PCP: Care Physician,No Primary Status :ADM IN Location: [place] [address] Hospitalist Note Patient with 15 beat asymptomatic VT. Electrolytes recently checked, mag normal range, K normal range. 11/04/2443 <Electronically signed by Maria Guadalupe Shore MD> Cosigner Signature (if applicable): CC: ~ Signed [facility] Work Phone: 1(550) 925-578904-03-2025 Progress note Author [facility] Note Date/Time November 03, 2024 10:3 8pm [facility] Medical Records Department [address] [place] [address] Progress Note - Hospitalist 11/03/242236 MR#: [id number] Acct: [id number] Name: FRANKLIN WIGGINS Rep #:[id number] : 1965 59 From: Maria Guadalupe Shore MD PCP: Care Physician,No Primary Status :ADM IN Location: [place] [address] Hospitalist Note Patient with mildly tachycardia through the late afternoon and evening. Will administer 500 cc bolus and reassess. From review of medications not normally onBB therapy. 11/03/242237 <Electronically signed by Maria Guadalupe Shore MD> Cosigner Signature (if applicable): CC: ~ Signed [facility] Work Phone: 1(919) 947-510804-02-2025 Progress note Author Hill Acuña [facility] Note Date/Time November 03, 2024 10:2 7am [facility] Medical Records Department [address] [place] [address] Progress Note - Hospitalist 11/03/24 1025 MR#: [id number] Acct: [id number] Name: FRANKLIN WIGGINS Rep #:[id number] : 1965 59 From: Hill Acuña MD PCP: Care Physician,No Primary Status :ADM IN Location: [place] [address] Reason for Visit Reason for Visit: Diagnoses [...] ? Requested for PT OT eval and drug abuse social worker to assist with discharge planning Time spent in the patient's overall evaluation,decision-making process, review of diagnostic data, adjustment of management, discussion with other providers, nursing nursing and ancillary staff involved in patient's care documentation, 38 Minutes Charges/Coding Visit Charges Inpatient E&M: 28669 Subs Hosp L2 11/03/24 1027 <Electronically signed by Hill Acuña MD> Cosigner Signature (if applicable): CC: ~ Signed [facility] Work Phone: 1(120) 160-753504-01-2025 Progress note Author Hill Acuña [facility] Note Date/Time November 02, 2024 10:[address] [facility] Medical Records Department [address] [place] [address] Progress Note - Hospitalist 11/02/24 0804 MR#: [id number] Acct: [id number] Name: FRANKLIN WIGGINS Rep #:[id number] : 1965 59 From: Hill Acuña MD PCP: Care Physician,No Primary Status :ADM IN Location: [place] [address] Reason for Visit Reason for Visit: Diagnoses [...] 50 Minutes Charges/Coding Visit Charges Inpatient E&M: 60386 Subs Hosp L3 11/02/24 1005 <Electronically signed by Hill Acuña MD> Cosigner Signature (if applicable): CC: ~ Signed [facility] Work Phone: 1(263) 620-837903-31-2025 Progress note Author Hill Acuña [facility] Note Date/Time November 01, 2024 11: 41am [facility] Medical Records Department [address] [place] [address] Progress Note - Hospitalist 11/01/24 112 MR#: [id number] Acct: [id number] Name: FRANKLIN WIGGINS Rep #:[id number] : 1965 59 From: Hill Acuña MD PCP: Care Physician,No Primary Status :ADM IN Location: [place] [address] Reason for Visit Reason for Visit: Diagnoses [...] 50 Minutes Charges/Coding Visit Charges Inpatient E&M: 19155 Subs Hosp L3 11/01/24 1141 <Electronically signed by Hill Acuña MD> Cosigner Signature (if applicable): CC: ~ Signed [facility] Work Phone: 1([phone]) 787-241703-31-2025 Progress note Author Niranjan Li [facility] Note Date/Time November 01, 2024 8:4 4am [facility] Medical Records Department [address] [place] [address] Progress Note 11/01/24 0836 MR#: [id number] Acct: [id number] Name: FRANKLIN WIGGINS Rep #:[id number] : 1965 59 From: Niranjan Li DO PCP: Care Physician,No Primary Status :ADM IN Location: [place] [address] Progress Note Patient has a little bit [...] doses of vancomycin. Visit Charges Inpatient E&M: 59778 [facility] 11/01/24 0821 <Electronically signed by Niranjan Li DO> Niranjan Li DO Cosigner Signature (if applicable): CC: ~ Signed [facility] Work Phone: 1(117) 335-985303-31-2025 Consult note Author Ale Renee [facility] Note Date/Time November 01, 2024 6:1 1am [facility] Medical Records Department [address] [place] [address] Pharmacokinetic/Renal -Consult 11/01/24 0604 MR#: [id number] Acct: [id number] Name: FRANKLIN WIGGINS Rep #:[id number] : 1965 59 From: Ale Renee PCP: Care Physician,No Primary Status :ADM IN Location: [place] [address] Consult Antibiotic Management Pharmacy has been consulted [...] Follow-Up Labs: Trough: Vancomycin (11/02/24 @ 16:30) 11/01/24604 <Electronically signed by Ale Renee> Date _ Ale Renee 11/01/24610 <Electronically signed by Hill Stiles DO> Cosigner Signature (if applicable): Date Hill Caro DO CC: ~ Signed [facility] Work Phone: 1(490) 204-970103-30-2025 Progress note Author Buster Fuchs [facility] Note Date/Time October 31, 2024 9:[address] [facility] Medical Records Department [address] [place] [address] Progress Note - Hospitalist 10/31/24 0952 MR#: [id number] Acct: [id number] Name: FRANKLIN WIGGINS Rep #:[id number] : [...] (Auto) 80.3 H, Lymph %(Auto) 5.9 L, [place] % (Auto) 7.9, Eos % (Auto) 1.5, [...] they did add IV Flagyl ? Appreciate division merchandise manager assistance 2. Acute metabolic cephalopathy with [...] DVT: SCDs Charges/Coding Visit Charges Inpatient E&M: 30952 Subs Hosp L2 10/31/24 0955 <Electronically signed by Buster Fuchs MD> Cosigner Signature (if applicable): CC: ~ Signed [facility] Work Phone: 1([phone]) 567-949403-30-2025 Consult note Author Foster Rascon [facility] Note Date/Time October 31, 2024 7:[address] [facility] Medical Records Department [address] [place] [address] Consultation 10/31/24 0730 MR#: [id number] Acct: [id number] Name: FRANKLIN WIGGINS Rep #:[id number] : [...] CC: No Primary Care Physician~ Signed [facility] Work Phone: 1([phone]) 747-493603-29-2025 Consult note Author Niranjan Li [facility] Note Date/Time October 30, 2024 9:3 4pm [facility] Medical Records Department [address] [place] [address] Consultation - GI 10/30/242047 MR#: [id number] Acct: [id number] Name: FRANKLIN WIGGINS Rep #:[id number] : [...] yellow-colored fluid removed. He presented backto [facility] ER complaining of abdominal pain, back [...] He is also on Zosyn for urosepsis. [facility] Medical History Chronic hypotension Obesity (BMI [...] 85.6 H, Lymph % (Auto) 4.3 L, [place] % (Auto) 7.3, Eos % (Auto) 0.5, [...] NG tube in satisfactory position. Reading Location: [facility] Assessment & Plan Assessment/Plan (1) Sepsis: [...] this admission. Charges/Coding Visit Charges Inpatient E&M: 34642 Init Hosp L3 10/30/242133 <Electronically signed by Niranjan Li DO> Cosigner Signature (if applicable): CC: No Primary Care Physician~ Signed [facility] Work Phone: [phone]) 178-288503-29-2025 Consult note Author Kourtney Reece [facility] Note Date/Time October 30, 2024 4:[facility] Medical Records Department [address] [place] [address] Pharmacokinetic/Renal -Consult 10/30/24 1552 MR#: [id number] Acct: [id number] Name: FRANKLIN WIGGINS Rep #:[id number] : [...] Buster Fuchs MD CC: ~ Signed [facility] Work Phone: [phone]) [phone] Progress note Author Jeff Cornelius [facility] Note Date/Time October 30, 2024 10: 45am [facility] Medical Records Department [address] [place] [address] Progress Note - [employer] 10/30/24 1037 MR#: [id number] Acct: [id number] Name: FRANKLIN WIGGINS Rep #:[id number] : [...] Lidocaine 5% Patch TOPICAL Not Given DAILY [facility] Protocol Midodrine 10 mg 10/29/24 02:00 10/30/24 [...] Vancomycin Trough/Random Due MC 10/30/24 16:30 DAILY [facility] Zinc Sulfate 50 mg 10/29/24 10:00 10/30/24 [...] 85.5 H, Lymph % (Auto) 4.6 L, [place] % (Auto) 7.4, Eos % (Auto) 1.2, [...] 85.6 H, Lymph % (Auto) 4.3 L, [place] % (Auto) 7.3, Eos % (Auto) 0.5, [...] NG tube in satisfactory position. Reading Location: [facility] Assessment and Plan . Assessment and [...] Signature (if applicable): CC: ~ Signed [facility] Work Phone: 1([phone]) [phone] Consult note Author Foster Rascon [facility] Note Date/Time October 30, 2024 9:[address] [facility] Medical Records Department [address] [place] [address] Consultation - Urology 10/30/24 0956 MR#: [id number] Acct: [id number] Name: FRANKLIN WIGGINS Rep #:[id number] : [...] not available on the weekend here at [facility]. We discussed transferring to other hospital for nephrostomy tube placement. We could also have a nephrostomy tube placed on Friday if radiology services are available. For now we will continue with broad-spectrum antibiotics await culture results but if things progress I think he is going to need nephrostomy tube we will continue to follow. [facility] Medical History Chronic hypotension Obesity (BMI [...] 85.5 H, Lymph % (Auto) 4.6 L, [place] % (Auto) 7.4, Eos % (Auto) 1.2, [...] 85.6 H, Lymph % (Auto) 4.3 L, [place] % (Auto) 7.3, Eos % (Auto) 0.5, [...] NG tube in satisfactory position. Reading [facility] 10/30/24 0958 <Electronically signed by Foster Rascon MD> Cosigner Signature (if applicable): CC: No Primary Care Physician~ Signed [facility] Work Phone: [phone]) [phone] Progress note Author Buster Fuchs [facility] Note Date/Time October 30, 2024 8:2 9am [facility] Medical Records Department [address] [place] [address] Progress Note - Hospitalist 10/30/24819 MR#: [id number] Acct: [id number] Name: FRANKLIN WIGGINS Rep #:[id number] : [...] 85.5 H, Lymph % (Auto) 4.6 L, [place] % (Auto) 7.4, Eos % (Auto) 1.2, [...] 85.6 H, Lymph % (Auto) 4.3 L, [place] % (Auto) 7.3, Eos % (Auto) 0.5, [...] antibiotics ? Cultures are pending ? Appreciate division merchandise manager assistance 2. Acute metabolic cephalopathy with [...] DVT: SCDs Charges/Coding Visit Charges Inpatient E&M: 63297 Subs Hosp L2 10/30/24828 <Electronically signed by Buster Fuchs MD> Cosigner Signature (if applicable): CC: ~ Signed [facility] Work Phone: [phone] Radiology Diagnostic study [facility]03-28-2025 Consult note Author Foster Rascon [facility] Note Date/Time October 29, 2024 10: 32am [facility] Medical Records Department [address] [place] [address] Consultation - Urology 10/29/24 0808 MR#: [id number] Acct: [id number] Name: FRANKLIN WIGGINS Rep #:[id number] : [...] emergency intervention is necessary from my standpoint [facility] Medical History Chronic hypotension Obesity (BMI [...] 83.0 H, Lymph % (Auto) 5.6 L, [place] % (Auto) 8.4, Eos % (Auto) 1.4, [...] vertebral body compression fracture deformities. Reading Location: [id number] 10/29/24 1032 <Electronically signed by Foster Rascon MD> Cosigner Signature (if applicable): CC: No Primary Care Physician~ Signed [facility] Work Phone: [phone] Consult note Author Bola Meraz [facility] Note Date/Time October 29, 2024 10: 24am [facility] Medical Records Department [address] [place] [address] Consultation - [employer] 10/29/24 0744 MR#: [id number] Acct: [id number] Name: FRANKLIN WIGGINS Rep #:[id number] : [...] coverage initiated. This note was generated with [employer]ue[employer] dictation software. It may contain incorrectwords, spelling, [...] stable, without the need for vasopressor support. [facility] Medical History Chronic hypotension Obesity (BMI [...] 83.0 H, Lymph % (Auto) 5.6 L, [place] % (Auto) 8.4, Eos % (Auto) 1.4, [...] vertebral body compression fracture deformities. Reading Location: [facility] Charges/Coding Visit Charges Inpatient E&M: 44398 Init Hosp L3 10/29/24 1024 <Electronically signed by Bola Meraz DO> Cosigner Signature (if applicable): CC: No Primary Care Physician~ Signed [facility] Work Phone: [phone]) [phone] Radiology Diagnostic study [facility]03-28-2025 History and physical note Author Hill Wright [facility] Note Date/Time October 29, 2024 6:4 7am [facility] Medical Records Department [address] [place] [address] H&P Exam - Hospitalist 10/29/24 0033 MR#: [id number] Acct: [id number] Name: FRANKLIN WIGGINS CARMELA Rep #:[id number] : 1965 59 From: [...] toSeptember 02, 2024 with patient diagnosed with oledv-qy-iaisqcs hypotension in thesetting of acute hepatic encephalopathy [...] removed who once again presents to [facility] ER complaining of abdominal pain, back [...] thatis expected to extend beyond 2 midnights. [facility] Medical History Chronic hypotension Obesity (BMI [...] 83.0 H, Lymph % (Auto) 5.6 L, [place] % (Auto) 8.4, Eos % (Auto) 1.4, [...] vertebral body compression fracture deformities. Reading Location: [facility] Assessment & Plan Assessment/Plan (1) Sepsis: [...] and sensitivity data. Give acetaminophen prn for orgq-ey-julqgxva (level 1-5/10) pain or fever. Give morphine [...] appreciated in advance. Finally, we will consult division merchandise manager to see this patient on-rounds in the AM for further recommendations with help appreciated in advance. 2. Admission here from August 29, 2024 to September 02, 2024 with patient diagnosed with qgxdw-cv-mcmtopw hypotension in the setting of acute hepatic [...] responsive hypotension Charges/Coding Visit Charges Inpatient E&M: 28869 Init Hosp L3 10/29/24 0647 <Electronically signed by Hill Caro DO> Cosigner Signature (if applicable): CC: Dr. Hill Caro DO; No Primary Care Physician~ Signed [facility] Work Phone: [phone]) [phone] Consult note Author Ale Renee [facility] Note Date/Time October 29, 2024 3:3 4am [facility] Medical Records Department [address] [place] [address] Pharmacokinetic/Renal -Consult 10/29/24316 MR#: [id number] Acct: [id number] Name: FRANKLIN WIGGINS Rep #:[id number] : [...] Ale Renee 10/29/24333 <Electronically signed by Hill Stiles DO> Cosigner Signature (if applicable): Date Hill Caro DO CC: ~ Signed [facility] Work Phone: [phone] 445-682203-28-2025 Discharge summary Author Alber Dunn [facility] Note Date/Time October 29, 2024 1:[address] [facility] Medical Records Department [address] [place] [address] Emergency Department Summary 10/28/24 MR#: [id number] Acct: [id number] Name: FRANKLIN WIGGINS Rep #:[id number] : [...] Prior similar symptoms: Yes Recent Illness/Hospitalization: No [facility] Medical History Chronic hypotension [...] There is a pressure was 81/50 5 azcvfm95/60 when I am in the room it [...] 83.0 H Lymph % (Auto) 5.6 L [place] % (Auto) 8.4 Eos % (Auto) 1.4 [...] Clarity Cloudy Urine pH 6.5 Ur Specific [place] 1.015 Urine Protein 500 H Urine Glucose [...] vertebral body compression fracture deformities. Reading Location: [facility] Rhythm Strip Rhythm Strip: Sinus Rhythm Rate: 83 Ectopy: None EKG Initial EKG: Attestation: I personally reviewed and interpreted this EKG as follows: Interpretation: Sinus Rhythm and No Acute Injury Pattern Comments: Normal sinus rhythm rate [address] of [address] or ischemia. No dysrhythmia. Critical Care Time Critical Care Time: Yes Critical care time (excluding procedures): 30-74 minutes, Including time spent:,Discussing w/Patient &/or Family/Manager Land, Discussing w/Consultants, ArrangingAdmission or Transfer, Performing Direct Patient Care at Bedside and - (38 min) Discharge Plan Dx/Rx/DC Orders Clinical Impression: Chronic back pain, Chronic abdominal pain, Leukocytosis, Acute UTI, Acute hypotension, Acidosis, lactic, Sepsis Disposition Disposition: [facility] Care [facility] What to do if you have Problems For any increased pain, shortness of breath, bleeding, nausea or vomiting, chestpain, or any unexpected problems, contact your Primary Care Provider. Call [facility] ([phone]) or report to the closest Emergency Room. Call 911 if necessary. 10/29/24 010 <Electronically signed by Alber Dunn MD> Cosigner Signature (if applicable): CC: No Primary Care Physician ~ Signed [facility] Work Phone: [phone] Evaluation note* Diagnosis Onset Date Resolution Status Admit Date Clostridium difficile colitis acute October 29, 2024 12:43am History of uric acid staghor n calculus acute October 29, 2024 12:43am Hyponatremia acute October 29, 2024 12:43am Leukocytosis acute October 29, 2024 12:43am Obesity (BMI 30.0-34.9) acute [facility] arch 2024 12:43am Chronic abdominal pain chronic [facility] 2024 12:43am Chronic back pain [...] acute January 28 7:00am Hepatic encephalopathy acute 2024 7:00am Lactic acidosis acute January 7:00am [facility] Work Phone: [phone] Evaluation note* Diagnosis Onset Date Resolution Status Admit Date Clostridium difficile colitis acute October 29, 2024 12:43am History of uric acid staghor n calculus acute October 29, 2024 12:43am Hyponatremia acute October 29, 2024 12:43am Leukocytosis acute October 29, 2024 12:43am Obesity (BMI 30.0-34.9) acute 2024 12:43am Chronic abdominal pain chronic [facility] 2024 12:43am Chronic back pain chronic [...] 7:00am Umbilical hernia acute January 7:00am [facility] Work Phone: [phone] Evaluation note* Diagnosis Onset Date Resolution Status Admit Date Clostridium difficile colitis acute October 29, 2024 12:43am History of uric acid staghor n calculus acute October 29, 2024 12:43am Hyponatremia acute October 29, 2024 12:43am Leukocytosis acute October 29, 2024 12:43am Obesity (BMI 30.0-34.9) acute [facility] 2024 12:43am Chronic abdominal pain chronic [facility] 2024 12:43am Chronic back pain chronic [...] 7:00am Umbilical hernia inactive January 7:00am [facility] Work Phone: [phone] Evaluation note* Diagnosis Onset Date Resolution Status [...] anemia chronic February 16, 2025 6:26pm [facility] Work Phone: [phone] 262-760503-28-2025 Evaluation note* Diagnosis Onset Date Resolution Status Admit Date Clostridium difficile colitis acute October 29, 2024 12:43am History of uric acid staghor n calculus acute October 29, 2024 12:43am Hyponatremia acute October 29, 2024 12:43am Leukocytosis acute October 29, 2024 12:43am Obesity (BMI 30.0-34.9) acute [facility] 2024 12:43am Chronic abdominal pain chronic [facility] 2024 12:43am Chronic back pain chronic [...] of thor acic spine, non-traumatic acute January 09 025 2:16pm Leukocytosis acute January 09 2:16pm Metabolic acidosis acute January 092024 2:16pm Sepsis resolved January 09, 2025 2:16pm Lactic acidosis resolved January 09, 2025 2:16pm Spinal stenosis, lumbar zuleyma on with neurogenic claudication inactive Jan 2:16pm Umbilical hernia inactive January 2:16pm Abnormal urinalysis acute January 28, 2025 7:00am Acute UTI acute January 28 7:00am Hepatic encephalopathy resolved [facility] 2024 7:00am Lactic acidosis resolved January 7:00am Umbilical hernia inactive January 7:00am Cirrhosis of liver with ascites acut e February 16, 2025 6:26pm Decompensated cirrhosis acute J pam 2024 6:26pm Elevated liver enzymes acute ly 2024 6:26pm History of diabetes mellitus acute February 16, 2025 6:26pm Hyperammonemia acute February 16, 2025 6:26pm Chronic anemia chronic February 16, 2025 6:26pm [facility] Work Phone: [phone] Discharge summary [facility] Medical Records Department [address] [place] [address] Emergency Department Summary 10/28/24 MR#: [id number] Acct: [id number] Name: FRANKLIN WIGGINS Rep #:[id number] : [...] Prior similar symptoms: Yes Recent Illness/Hospitalization: No [facility] Medical History Chronic hypotension [...] There is a pressure was 81/50 5 dezuqm58/60 when I am in the room it [...] Currently he is stable at12:10 AM. [facility] blood pressure is 110/67. Spoke to the [...] 83.0 H Lymph % (Auto) 5.6 L [place] % (Auto) 8.4 Eos % (Auto) 1.4 [...] Clarity Cloudy Urine pH 6.5 Ur Specific [place] 1.015 Urine Protein 500 H Urine Glucose [...] vertebral body compression fracture deformities. Reading Location: [facility] Rhythm Strip Rhythm Strip: Sinus Rhythm Rate: 83 Ectopy: None EKG Initial EKG: Attestation: I personally reviewed and interpreted this EKG as follows: Interpretation: Sinus Rhythm and No Acute Injury Pattern Comments: Normal sinus rhythm rate [address] of [address] or ischemia. No dysrhythmia. Critical Care Time Critical Care Time: Yes Critical care time (excluding procedures): 30-74 minutes, Including time spent:,Discussing w/Patient &/or Family/Manager Land, Discussing w/Consultants, ArrangingAdmission or Transfer, Performing Direct Patient Care at Bedside and - (38 min) Discharge Plan Dx/Rx/DC Orders Clinical Impression: Chronic back pain, Chronic abdominal pain, Leukocytosis, Acute UTI, Acute hypotension, Acidosis, lactic, Sepsis Disposition Disposition: Acute Care Hospital [facility] What to do if you have Problems For any increased pain, shortness of breath, bleeding, nausea or vomiting, chestpain, or any unexpected problems, contact your Primary Care Provider. Call [facility] ([phone]) or report tothe closest Emergency Room. Call 911 if necessary. 10/29/24 0104 Cosigner Signature (if applicable): CC: No Primary Care Physician ~ Signed [facility]03-27-2025 Radiology Diagnostic study note [facility] Imaging Services [address] [place] [address] Abdomen/Pelvis W IV Cont ONLY MR#: [id number] Acct: [id number] Name: FRANKLIN WIGGINS Rep #: [id number] : 1965 M 59 From: Cassandra Starkey MD PCP: Care Physician,No Primary Status: REG ER Study:Abdomen/Pelvis W IV Cont ONLY Date of E xam: 10/28/24 Exam# [id number] Ordering Dr: Tee Dunn MD PROCEDURE: ABDOMEN/PELVIS [...] vertebral body compression fracture deformities. Reading Location: [facility] CC: Dr. Alber Dunn MD; No Primary Care Physician ~ Sandfill Operator: Signed [facility]03-27-2025 Discharge summary Author Alber Dunn [facility] Note Date/Time October 29, 2024 1:0 4am [facility] Medical Records Department [address] [place] [address] Emergency Department Summary 10/28/24 MR#: [id number] Acct: [id number] Name: FRANKLIN WIGGINS Rep #:[id number] : [...] Prior similar symptoms: Yes Recent Illness/Hospitalization: No [facility] Medical History Chronic hypotension [...] There is a pressure was 81/50 5 byphgt34/60 when I am in the room it [...] 83.0 H Lymph % (Auto) 5.6 L [place] % (Auto) 8.4 Eos % (Auto) 1.4 [...] Clarity Cloudy Urine pH 6.5 Ur Specific [place] 1.015 Urine Protein 500 H Urine Glucose [...] vertebral body compression fracture deformities. Reading Location: [facility] Rhythm Strip Rhythm Strip: Sinus Rhythm Rate: 83 Ectopy: None EKG Initial EKG: Attestation: I personally reviewed and interpreted this EKG as follows: Interpretation: Sinus Rhythm and No Acute Injury Pattern Comments: Normal sinus rhythm rate [address] of [address] or ischemia. No dysrhythmia. Critical Care Time Critical Care Time: Yes Critical care time (excluding procedures): 30-74 minutes, Including time spent:,Discussing w/Patient &/or Family/Manager Land, Discussing w/Consultants, ArrangingAdmission or Transfer, Performing Direct Patient Care at Bedside and - (38 min) Discharge Plan Dx/Rx/DC Orders Clinical Impression: Chronic back pain, Chronic abdominal pain, Leukocytosis, Acute UTI, Acute hypotension, Acidosis, lactic, Sepsis Disposition Disposition: Acute Care Hospital [facility] What to do if you have Problems For any increased pain, shortness of breath, bleeding, nausea or vomiting, chestpain, or any unexpected problems, contact your Primary Care Provider. Call [facility] ([phone]) or report to the closest Emergency Room. Call 911 if necessary. 10/29/24 0104 <Electronically signed by Alber Dunn MD> Cosigner Signature (if applicable): CC: No Primary Care Physician ~ Signed [facility] Work Phone: [phone]) 184-961603-03-2025 Procedure note* Joey Huang DO - 10/04/2024 [...] Adhesive bandage Post-procedure details: Procedure completion: Tolerated [facility] Work Phone: 1(156) 228-324803-03-2025 Procedure note* Joey Huang DO - 10/04/2024 [...] details: Procedure completion: Tolerated documented in this [facility] Work Phone: 1(727) 439-113903-03-2025 Consult note* Joey Huang DO - 10/04/2024 5:13 PM EST Reason For Consult Ascites History Of Present Illness Franklin Wiggins is a 59 y.o. male presenting with abdominal pain. He presented to the emergency room from [facility] secondary to increasing abdominal girth pain and ascites He was recently drained at [facility] for his ascites His abdomen is hurting [...] call Assessment & Plan Joey Huang DO [facility] Work Phone: [phone]) 191-521603-03-2025 Consult note* Joey Huang DO - 10/04/2024 5:13 PM EST Reason For Consult Ascites History Of Present Illness Franklin Wiggins is a 59 y.o. male presenting with abdominal pain. He presented to the emergency room from [facility] secondary to increasing abdominal girth pain and ascites He was recently drained at [facility] for his ascites His abdomen is hurting [...] Plan Joey Huang DO documented in this [facility] Work Phone: [phone]) 326-330203-03-2025 Physician Emergency department Note* Sriram Oleary PA-C [...] Abnormality Status --------- ------ Urinalysis with Reflex C...[[id number]] Extra Urine Toney Tube[[id number]] Please view results for these tests on the individual orders. URINALYSIS WITH REFLEX CULTURE AND MICROSCOPIC EXTRA URINE TONEY TUBE PH, BODY FLUID LACTATE DEHYDROGENASE, BODY FLUID Narrative: The following orders were created for panel order Lactate Dehydrogenase, Body Fluid. Procedure Abnormality Status --------- ------ Lactate Dehydrogenase, B...[[id number]] In process Please view results for these tests on the individual orders. GLUCOSE, BODY FLUID Narrative: The following orders were created for panel order Glucose, Body Fluid. Procedure Abnormality Status --------- ------ Glucose, Body Fluid[[id number]] In process Please view results for these tests on the individual orders. PROTEIN, TOTAL, BODY FLUID Narrative: The following orders were created for panel order Protein, Total, Body Fluid. Procedure Abnormality Status --------- ------ Protein, Total, Body Fluid[[id number]] In process Please view results for these tests on the individual orders. BODY FLUID CELL COUNT WITH DIFFERENTIAL Narrative: The following orders were created for panel order Body Fluid Cell Count With Differential. Procedure Abnormality Status --------- ------ Body Fluid Cell Count[[id number]] In process Body Fluid Differential[[id number]] In process Please view results for these tests on the individual orders. ALBUMIN, BODY FLUID Narrative: The following orders were created for panel order Albumin, Body Fluid. Procedure Abnormality Status --------- ------ Albumin, Body Fluid[[id number]] In process Please view results for these [...] Yohana Huang 10/04/2024 2:28 PM Dictation workstation: [id number] Procedures Medical Decision Making Patient is a 59-year-old male with a hx of cirrhosis who presents to the emergency department with a chief complaint of abdominal pain from [facility]. He reports increased abdominal pain that he describes as generalized, states that his abdomen is distended. Recently had a paracentesis performed at [facility] on September 29. Patient reports that he [...] were added to the patient's medication r vinod. Patient will be discharged home with recommended [...] cirrhosis type (Multi) Sriram Oleary PA-C 10/04/241736 [facility] Work Phone: 1(788) 467-238803-03-2025 Emergency department Note* Sriram DEV Oleary - 10/04/2024 12:18 PM EST Patient is [...] Abnormality Status --------- ------ Urinalysis with Reflex C...[[id number]] Extra Urine Toney Tube[[id number]] Please view results for these tests on the individual orders. URINALYSIS WITH REFLEX CULTURE AND MICROSCOPIC EXTRA URINE TONEY TUBE PH, BODY FLUID LACTATE DEHYDROGENASE, BODY FLUID Narrative: The following orders were created for panel order Lactate Dehydrogenase, Body Fluid. Procedure Abnormality Status --------- ------ Lactate Dehydrogenase, B...[[id number]] In process Please view results for these tests on the individual orders. GLUCOSE, BODY FLUID Narrative: The following orders were created for panel order Glucose, Body Fluid. Procedure Abnormality Status --------- ------ Glucose, Body Fluid[[id number]] In process Please view results for these tests on the individual orders. PROTEIN, TOTAL, BODY FLUID Narrative: The following orders were created for panel order Protein, Total, Body Fluid. Procedure Abnormality Status --------- ------ Protein, Total, Body Fluid[[id number]] In process Please view results for these tests on the individual orders. BODY FLUID CELL COUNT WITH DIFFERENTIAL Narrative: The following orders were created for panel order Body Fluid Cell Count With Differential. Procedure Abnormality Status --------- ------ Body Fluid Cell Count[[id number]] In process Body Fluid Differential[[id number]] In process Please view results for these tests on the individual orders. ALBUMIN, BODY FLUID Narrative: The following orders were created for panel order Albumin, Body Fluid. Procedure Abnormality Status --------- ------ Albumin, Body Fluid[[id number]] In process Please view results for these [...] Yohana Huang 10/04/2024 2:28 PM Dictation workstation: [id number] Procedures Medical Decision Making Patient is a 59-year-old male with a hx of cirrhosis who presents to the emergency department with a chief complaint of abdominal pain from [facility]. He reports increased abdominal pain that he describes as generalized, states that his abdomen is distended. Recently had a paracentesis performed at [facility] on September 29. Patient reports that he [...] Sriram Oleary PA-C 10/04/241736 documented in this [facility] Work Phone: 1(508) 276-981102-26-2025 Evaluation note* Diagnosis Onset Date Resolution Status [...] :16pm Umbilical hernia acute January 2:16pm [facility] Work Phone: 1(901) 280-822502-26-2025 Procedure note [facility] Medical Records Department [address] [place] [address] Operative Report 09/29/24 1048 MR#: [id number] Acct: [id number] Name: FRANKLIN WIGGINS Rep #:[id number] : 1965 59 From: Jasmine gusman NP ACCESS ANALYST-C PCP: Care Physician,No Primary Status :REG CLI Location: US Problems Associated Problem List Diagnoses (1) Abdominal ascites: Multi Select Codes Radiology Radiology US Procedures: 22729 Paracentesis Operative Report (Standard) Operative Information Date of Procedure: 09/29/24 Pre-Operative Diagnosis: Abdominal ascites Post-Operative Diagnosis: Abdominal ascites Surgery/Procedure Performed: Ultrasound-guided paracentesis gas usage meter clerk: No Type of Anesthesia: Local Procedure Start [...] the peritoneal cavity was accessed with a 5-Zambian paracentesis needle/catheter system. The trocar was removed. [...] Primary Care Physician; DIANE CALLAHAN~ Signed [facility]02-02-2025 Evaluation note* Diagnosis Onset Date Resolution [...] 1:46am Abdominal ascites acute r 2024 9:35am Clostridium difficile colitis acute October 29, 2024 12:43am History of uric acid staghor n calculus acute October 29, 2024 12:43am Hyponatremia acute October 29, 2024 12:43am Leukocytosis acute October 29, 2024 12:43am Obesity (BMI 30.0-34.9) acute M arch 2024 12:43am Chronic abdominal pain chronic [facility] 2024 12:43am Chronic back pain [...] Fall acute January 02, 2025 6:06am [facility] Work Phone: 1(822) 112-574002-02-2025 Evaluation note* Diagnosis Onset Date Resolution Status Admit Date Ambulatory dysfunction acute Fe 2024 1:46am Generalized [...] y 2024 1:46am Chronic hypotension inactive Febru ace2024 1:46am Hepatic encephalopathy inactive Fe bruary , 2025 1:46am Hyperbilirubinemia inactive 2024 1:46am Hypotension inactive September 05, 2024 1:46am 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) inactive September 05 1:46am Obesity (BMI 30-39.9) inactive Sep 1:46am ABBY on CPAP inactive September 05, 2024 1:46am Cirrhosis of liver deleted 2024 1:46am Abdominal ascites acute 2024 9:35am Clostridium difficile colitis acute October 29, 2024 12:43am History of uric acid staghor n calculus acute October 29, 2024 12:43am Hyponatremia acute October 29, 2024 12:43am Leukocytosis acute October 29, 2024 12:43am Obesity (BMI 30.0-34.9) acute M arch 2024 12:43am Chronic abdominal pain chronic [facility] 2024 12:43am Chronic back pain [...] of thor acic spine, non-traumatic acute January 09 2:16pm Sepsis acute January 09, 2025 2:16pm [facility] Work Phone: 1(684) 339-214101-27-2025 Evaluation note* Diagnosis Onset Date Resolution Status Admit Date ISABEL (acute kidney injury) inactive August 29, 2024 10:09pm Hepatic encephalopathy inactive [facility] 2024 10:09pm Hypotension inactive August 29, [...] ascites acute uar y 2024 9:35am [facility] Work Phone: 1(441) 234-483301-27-2025 Evaluation note* Diagnosis Onset Date Resolution Status Admit Date ISABEL (acute kidney injury) inactive August 29, 2024 10:09pm Hepatic encephalopathy inactive [facility] 2024 10:09pm Hypotension inactive August 29, 2024 [...] 05 025 1:46am Obesity (BMI 30-39.9) inactive Feb ru2024 [...] 29 12:43am Chronic abdominal pain chronic [facility] 2024 12:43am Chronic back pain chronic October 032024 12:43am [facility] Work Phone: 1(727) 920-831801-27-2025 Evaluation note* Diagnosis Onset Date Resolution Status [...] 29 12:43am Chronic abdominal pain chronic [facility] 2024 12:43am Chronic back pain chronic October 032024 12:43am [facility] Work Phone: 1(906) 927-364501-27-2025 Evaluation note* Diagnosis Onset Date Resolution Status [...] 2024 12:43am Chronic abdominal pain chronic [facility] 2024 12:43am Chronic back pain [...] Staghorn calculus acute November 032024 4:28am [facility] Work Phone: 1(416) 103-566601-27-2025 Evaluation note* Diagnosis Onset Date Resolution Status [...] resolv ed November 28, 2024 4:51pm [facility] Work Phone: Discharge summary Author Herberth Carlson [facility] Note Date/Time November 21, 2024 4:[address] [facility] Medical Records Department [address] [place] [address] Emergency Department Summary 11/21/24 MR#: [id number] Acct: [id number] Name: FRANKLIN WIGGINS Rep #:[id number] : [...] discontinue his lactulose. He was recently admitted [facility] for cirrhosis and other issues, he [...] toilet after multiple attempts over couple hours. [facility] Medical History Diarrhea Sepsis [...] (Auto) 68.7 Lymph % (Auto) 13.9 L [place] % (Auto) 9.2 Eos % (Auto) 7.2 [...] Sl Cldy Urine pH 6.0 Ur Specific [place] 1.015 Urine Protein 500 H Urine Glucose [...] process. Follow-up to resolution recommended. [facility] Management Discussion w/another healthcare provider: Hospitalist Discharge [...] Primary [Primary Care Provider] - Print Language: Guyanese Disposition Disposition: Acute Care Hospital [facility] What to do if you have Problems For any increased pain, shortness of breath, bleeding, nausea or vomiting, chestpain, or any unexpected problems, contact your Primary Care Provider. Call [facility] ([phone]) or report to the closest Emergency Room. Call 911 if necessary. 11/21/24 0416 <Electronically signed by Herberth Carlson MD> Cosigner Signature (if applicable): CC: No Primary Care Physician ~ Signed [facility] Work Phone: Discharge summary Author Mina Blood [facility] Note Date/Time December 30, 2024 5:19a m [facility] Medical Records Department [address] [place] [address] Emergency Department Summary 12/30/24 MR#: [id number] Acct: [id number] Name: FRANKLIN WIGGINS Rep #:[id number] : [...] recent trauma prior to the pain beginning. [facility] Medical History Weakness Diarrhea [...] (Auto) 69.7 Lymph % (Auto) 14.0 L [place] % (Auto) 9.1 Eos % (Auto) 6.2 [...] Clarity Cloudy Urine pH 6.5 Ur Specific [place] 1.010 Urine Protein 100 H Urine Glucose [...] No evidence of acute disease. Reading Location: [facility] Chest x-ray as interpreted by the [...] Care Provider: Josy Elias Referrals: Josy Elias, ACCESS ANALYST-C [Primary Care Provider] - Activity Restrictions/Additional Instructions: [...] you have any further concerns Print Language: Guyanese Disposition Disposition: Home, Self Care What to do if you have Problems For any increased pain, shortness of breath, bleeding, nausea or vomiting, chestpain, or any unexpected problems, contact your Primary Care Provider. Call [facility] ([phone]) or report to the closest Emergency Room. Call 911 if necessary. 12/30/24 0519 <Electronically signed by Mina Blood DO> Cosigner Signature (if applicable): CC: YG Elias ~ Signed [facility] Work Phone: Discharge summary Author Roddy Reeves [facility] Note Date/Time January 02, 2025 6:00a m [facility] Medical Records Department [address] [place] [address] Emergency Department Summary 01/02/25 MR#: [id number] Acct: [id number] Name: FRANKLIN WIGGINS Rep #:[id number] : [...] was here recently and was sent home. [facility] Medical History Weakness Diarrhea [...] Patient following commands that he was at [facility] that wewere in the end of December [...] (Auto) 68.0 Lymph % (Auto) 12.2 L [place] % (Auto) 11.9 H Eos % (Auto) [...] Clarity Turbid Urine pH 6.0 Ur Specific [place] 1.015 Urine Protein 100 H Urine Glucose [...] insufficiency fracture again noted, unchanged. Reading Location: [facility] Brain CT 01/02/25 03:55 IMPRESSION: No intracranial hemorrhage, mass effect or calvarial fracture. Moderate volume loss, atrophy again noted. Mild left maxillary sinus disease appears mildly decreased from the prior study. Reading Location: [facility] Cervical Spine CT 01/02/25 03:55 IMPRESSION: No fracture or malalignment. Multilevel spondylosis/discogenic change greatest at C5-6 Reading Location: [facility] Discharge Plan Triage Chief Complaint: Weakness [...] NP-C [Primary Care Provider] - Print Language: Guyanese Disposition Disposition: Acute Care Hospital [facility] What to do if you have Problems For any increased pain, shortness of breath, bleeding, nausea or vomiting, chestpain, or any unexpected problems, contact your Primary Care Provider. Call [facility] ([phone]) or report to the closest Emergency Room. Call 911 if necessary. 01/02/25 0600 <Electronically signed by Roddy Reeves DO> Cosigner Signature (if applicable): CC: YG Elias ~ Signed [facility] Work Phone: Discharge summary Author Mina Blood [facility] Note Date/Time February 08, 2025 3:03a m [facility] Medical Records Department [address] [facility] [place] [address] Emergency Department Summary 02/08/25 MR#: [id number] Acct: [id number] Name: FRANKLIN WIGGINS Rep #:[id number] : [...] bouts of constipation fevers chills or dysuria. [facility] Medical History (Updated 02/08/25 [...] surgery as fat necrosis is a nonemergent uhd-mmmy-njejgdnjvmd process. The patient will be given pain [...] 72.8 H Lymph % (Auto) 12.8 L [place] % (Auto) 8.1 Eos % (Auto) 5.4 [...] double-J stent in place. Anasarca. Reading Location: [place] [address] Discharge Plan Triage Chief Complaint: Abd Pain [...] Ambulatory Orders: Paracentesis with US (Routine) Facility[facility] - Location: [facility] Ordered By: Dr. Mina Blood Primary Care [...] you have any further concerns. Print Language: Guyanese Disposition Disposition: Home, Self Care What to do if you have Problems For any increased pain, shortness of breath, bleeding, nausea or vomiting, chestpain, or any unexpected problems, contact your Primary Care Provider. Call [facility] ([phone]) or report to the closest Emergency Room. Call 911 if necessary. 02/08/25 0303 <Electronically signed by Mina Blood DO> Cosigner Signature (if applicable): CC: Dr. Jerald Sherwood MD ~ Signed [facility] Work Phone: Evaluation note* Diagnosis Other ascites- Primary Abdominal pain, generalized Cirrhosis of liver with ascites, unspecified hepatic cirrhosis type (Multi) Peripheral edema Edema Coagulopathy (Multi) Other and unspecified coagulation defects Hyperbilirubinemia Disorders of bilirubin excretion documented in this encounter [facility] Work Phone: Evaluation note* Diagnosis Metabolic dysfunction-associated steatohepatitis (MASH)- [facility] Diagnosis Liver transplant candidate- Primary Metabolic dysfunction-associated steatohepatitis (MASH) [facility] Pre-transplant evaluation for liver transplant- Primary [facility] Liver transplant candidate- Primary Pre-operative clearance Preoperative examination, unspecified [facility]* Diagnosis Screening for genitourinary condition Screening for other and unspecified genitourinary condition [facility] Buster Fuchs [facility] Note Date/Time January 02, 2025 6:44a m [facility] Medical Records Department [address] [place] [address] H&P Exam - Hospitalist 01/02/25 0556 MR#: [id number] Acct: [id number] Name: FRANKLIN WIGGINS Rep #:[id number] : 1965 59 From: Buster duarte MD PCP: YG Pena Status:ADM I N Location: [place] [address] HPI - General General Date of Admission: 01/02/25 HPI Narrative FRANKLIN WIGGINS, is a 59 M who presents to the hospital with weakness and a fall. He did not hit his head or lose consciousness. He has had an extensive recent medical history with cirrhosis and UTI with staghorn calculus, he was in the ICUin October. 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 Was not considered to be a liver transplant candidate and was placed on anticoagulation. He has had a couple of readmissions for weakness and debility. [place] to possibly have aUTI given a staghorn [...] Heis receiving potassium infusion in the ER. [facility] Medical History Weakness Diarrhea Sepsis Acidosis, [...] (Auto) 68.0, Lymph % (Auto) 12.2 L, [place] % (Auto) 11.9 H, Eos % (Auto) [...] insufficiency fracture again noted, unchanged. Reading Location: [id number] Brain CT 01/02/25 03:55 IMPRESSION: No intracranial hemorrhage, mass effect or calvarial fracture. Moderate volume loss, atrophy again noted. Mild left maxillary sinus disease appears mildly decreased from the prior study. Reading Location: [facility] Cervical Spine CT 01/02/25 03:55 IMPRESSION: No fracture or malalignment. Multilevel spondylosis/discogenic change greatest at C5-6 Reading Location: [facility] Assessment & Plan Assessment/Plan (1) Fall: [...] once verified Charges/Coding Visit Charges Inpatient E&M: 89280 Init Hosp L2 01/02/25 0644 <Electronically signed by Buster Fuchs MD> Cosigner Signature (if applicable): CC: YG Elias; Dr. Buster Fuchs MD~ Signed [facility] Work Phone: Hospital Discharge instructions* Attachments The following attachments cannot be sent through Care Everywhere. * Cirrhosis (Guyanese) * Abdominal pain (Guyanese) [facility] Work Phone: Hospital Discharge instructions Additional [...] the ER should [facility] have any [facility] Work Phone: Hospital Discharge instructionsAdditional Instructions [...] ER should you have any further concerns.[facility] Work Phone: Hospital Discharge instructionsAdditional Instructions Thank you for trusting us with your care today! Please take Tylenol (2 pills, 650 mg), ibuprofen (2 pills, 400 mg) every 6 hours as needed for pain and fever control. Please return to the emergency department if your symptoms change or worsen. Please follow with your primary care physician for further outpatient evaluation and management.[facility] Work Phone: Reason for referral (narrative)No reason for referral information [facility] Work Phone: Summary Purpose Family [...] Will No August 21 2:51pm Power of Manufacturing Process Technician No August 21, 2024 2:51pm Living Will No August 30 12:39am Power of Manufacturing Process Technician No August 30, 2024 12:39am Living Will No September 05 4:42am Power of Manufacturing Process Technician No September 05, 2024 4:42am Advance Directive Response Recorded Date/ Time Living Will No August 21 2:51pm Do you have a Healthcare Power of Manufacturing Process Technician? No August 21, 2024 2:51pm Living Will No August 30 12:39am Do you have a Healthcare Power of Manufacturing Process Technician? No August 30, 2024 12:39am Living Will No September 05 4:42am Do you have a Healthcare Power of Manufacturing Process Technician? No September 05, 2024 4:42am Living Will No October 28, 2024 5:24pm Do you have a Healthcare Power of Manufacturing Process Technician? No October 28, 2024 5:24pm Advance Directive Response Recorded Date/ Time Living Will No August 21 2:51pm Do you have a Healthcare Power of Manufacturing Process Technician? No August 21, 2024 2:51pm Living Will No August 30 12:39am Do you have a Healthcare Power of Manufacturing Process Technician? No August 30, 2024 12:39am Living Will No September 05 4:42am Do you have a Healthcare Power of Manufacturing Process Technician? No September 05, 2024 4:42am Living Will No October 29, 2024 1:46am Do you have a Healthcare Power of Manufacturing Process Technician? No October 29, 2024 1:46am Date Activated Date Inactivated Comments 11/11/2024 7:22 AM Question Answer Comments Full Code Order Discussed With: Patient Date Activated Date Inactivated Comments 11/11/2024 7:22 AM Advance Directive Response Recorded Date/ Time Living Will No August 21 2:51pm Do you have a Healthcare Power of Manufacturing Process Technician? No August 21, 2024 2:51pm Living Will No August 30 12:39am Do you have a Healthcare Power of Manufacturing Process Technician? No August 30, 2024 12:39am Living Will No September 05 4:42am Do you have a Healthcare Power of Manufacturing Process Technician? No September 05, 2024 4:42am Living Will No October 29, 2024 1:46am Do you have a Healthcare Power of Manufacturing Process Technician? No October 29, 2024 1:46am Living Will Yes November 21, 2024 1:32am Do you have a Healthcare Power of Manufacturing Process Technician? Yes November 21, 2024 1:32am Name of Medical Power of Manufacturing Process Technician anne Hernandez November 21, 2024 1:32am Advance Directive Response Recorded Date/ Time Living Will No August 21 2:51pm Do you have a Healthcare Power of Manufacturing Process Technician? No August 21, 2024 2:51pm Living Will No August 30 12:39am Do you have a Healthcare Power of Manufacturing Process Technician? No August 30, 2024 12:39am Living Will No September 05 4:42am Do you have a Healthcare Power of Manufacturing Process Technician? No September 05, 2024 4:42am Living Will No October 29, 2024 1:46am Do you have a Healthcare Power of Manufacturing Process Technician? No October 29, 2024 1:46am Living Will Yes November 21, 2024 5:32am Do you have a Healthcare Power of Manufacturing Process Technician? Yes November 21, 2024 5:32am Name of Medical Power of Manufacturing Process Technician Mary anne November 21, 2024 5:32am Do you have a Healthcare Power of Manufacturing Process Technician? No November 28, 2024 5:49pm Advance Directive Response Recorded Date/ Time Living Will No August 30 12:39am Do you have a Healthcare Power of Manufacturing Process Technician? No August 30, 2024 12:39am Living Will No September 05 4:42am Do you have a Healthcare Power of Manufacturing Process Technician? No September 05, 2024 4:42am Living Will No October 29, 2024 1:46am Do you have a Healthcare Power of Manufacturing Process Technician? No October 29, 2024 1:46am Living Will Yes November 21, 2024 5:32am Do you have a Healthcare Power of Manufacturing Process Technician? Yes November 21, 2024 5:32am Name of Medical Power of Manufacturing Process Technician anne Hernandez November 21, 2024 5:32am Do you have a Healthcare Power of Manufacturing Process Technician? No November 28, 2024 5:49pm Advance Directive Response Recorded Date/ Time Living Will No August 30 12:39am Do you have a Healthcare Power of Manufacturing Process Technician? No August 30, 2024 12:39am Living Will No September 05 4:42am Do you have a Healthcare Power of Manufacturing Process Technician? No September 05, 2024 4:42am Living Will No October 29, 2024 1:46am Do you have a Healthcare Power of Manufacturing Process Technician? No October 29, 2024 1:46am Living Will Yes November 21, 2024 5:32am Do you have a Healthcare Power of Manufacturing Process Technician? Yes November 21, 2024 5:32am Name of Medical Power of Manufacturing Process Technician anne Hernandez November 21, 2024 5:32am Do you have a Healthcare Power of Manufacturing Process Technician? No November 28, 2024 5:49pm Do you have a Healthcare Power of Manufacturing Process Technician? No December 26, 2024 10:02am Advance Directive Response Recorded Date/ Time Living Will No August 30 12:39am Do you have a Healthcare Power of Manufacturing Process Technician? No August 30, 2024 12:39am Living Will No September 05 4:42am Do you have a Healthcare Power of Manufacturing Process Technician? No September 05, 2024 4:42am Living Will No October 29, 2024 1:46am Do you have a Healthcare Power of Manufacturing Process Technician? No October 29, 2024 1:46am Living Will Yes November 21, 2024 5:32am Do you have a Healthcare Power of Manufacturing Process Technician? Yes November 21, 2024 5:32am Name of Medical Power of Manufacturing Process Technician anne Hernandez November 21, 2024 5:32am Do you have a Healthcare Power of Manufacturing Process Technician? No November 28, 2024 5:49pm Do you have a Healthcare Power of Manufacturing Process Technician? No December 26, 2024 10:02am Do you have a Healthcare Power of Manufacturing Process Technician? No December 30, 2024 1:06am Advance Directive Response Recorded Date/ Time Do you have a Healthcare Power of Manufacturing Process Technician? No January 02, 2025 2:59am Living Will No September 05 4:42am Do you have a Healthcare Power of Manufacturing Process Technician? No September 05, 2024 4:42am Living Will No October 29, 2024 1:46am Do you have a Healthcare Power of Manufacturing Process Technician? No October 29, 2024 1:46am Living Will Yes November 21, 2024 5:32am Do you have a Healthcare Power of Manufacturing Process Technician? Yes November 21, 2024 5:32am Name of Medical Power of Manufacturing Process Technician anne Hernandez November 21, 2024 5:32am Do you have a Healthcare Power of Manufacturing Process Technician? No November 28, 2024 5:49pm Do you have a Healthcare Power of Manufacturing Process Technician? No December 26, 2024 10:02am Do you have a Healthcare Power of Manufacturing Process Technician? No December 30, 2024 1:06am Advance Directive Response Recorded Date/ Time Do you have a Healthcare Power of Manufacturing Process Technician? No January 02, 2025 8:14am Living Will No September 05 4:42am Do you have a Healthcare Power of Manufacturing Process Technician? No September 05, 2024 4:42am Living Will No October 29, 2024 1:46am Do you have a Healthcare Power of Manufacturing Process Technician? No October 29, 2024 1:46am Living Will Yes November 21, 2024 5:32am Do you have a Healthcare Power of Manufacturing Process Technician? Yes November 21, 2024 5:32am Name of Medical Power of Manufacturing Process Technician anne Hernandez November 21, 2024 5:32am Do you have a Healthcare Power of Manufacturing Process Technician? No November 28, 2024 5:49pm Do you have a Healthcare Power of Manufacturing Process Technician? No December 26, 2024 10:02am Do you have a Healthcare Power of Manufacturing Process Technician? No December 30, 2024 1:06am Advance Directive Response Recorded Date/ Time Do you have a Healthcare Power of Manufacturing Process Technician? No January 02, 2025 8:14am Living Will No September 05 4:42am Do you have a Healthcare Power of Manufacturing Process Technician? No September 05, 2024 4:42am Living Will No October 29, 2024 1:46am Do you have a Healthcare Power of Manufacturing Process Technician? No October 29, 2024 1:46am Living Will Yes November 21, 2024 5:32am Do you have a Healthcare Power of Manufacturing Process Technician? Yes November 21, 2024 5:32am Name of Medical Power of Manufacturing Process Technician anne Hernandez November 21, 2024 5:32am Do you have a Healthcare Power of Manufacturing Process Technician? No November 28, 2024 5:49pm Do you have a Healthcare Power of Manufacturing Process Technician? No December 26, 2024 10:02am Do you have a Healthcare Power of Manufacturing Process Technician? No December 30, 2024 1:06am Do you have a Healthcare Power of Manufacturing Process Technician? No January 09, 2025 10:10am Advance Directive Response Recorded Date/ Time Do you have a Healthcare Power of Manufacturing Process Technician? No January 02, 2025 8:14am Living Will No October 29, 2024 1:46am Do you have a Healthcare Power of Manufacturing Process Technician? No October 29, 2024 1:46am Living Will Yes November 21, 2024 5:32am Do you have a Healthcare Power of Manufacturing Process Technician? Yes November 21, 2024 5:32am Name of Medical Power of Manufacturing Process Technician anne Hernandez November 21, 2024 5:32am Do you have a Healthcare Power of Manufacturing Process Technician? No November 28, 2024 5:49pm Do you have a Healthcare Power of Manufacturing Process Technician? No December 26, 2024 10:02am Do you have a Healthcare Power of Manufacturing Process Technician? No December 30, 2024 1:06am Do you have a Healthcare Power of Manufacturing Process Technician? No January 09, 2025 3:31pm Advance Directive Response Recorded Date/ Time Do you have a Healthcare Power of Manufacturing Process Technician? No January 02, 2025 8:14am Do you have a Healthcare Power of Manufacturing Process Technician? No January 28, 2025 3:02am Living Will No October 29, 2024 1:46am Do you have a Healthcare Power of Manufacturing Process Technician? No October 29, 2024 1:46am Living Will Yes November 21, 2024 5:32am Do you have a Healthcare Power of Manufacturing Process Technician? Yes November 21, 2024 5:32am Name of Medical Power of Manufacturing Process Technician anne Hernandez November 21, 2024 5:32am Do you have a Healthcare Power of Manufacturing Process Technician? No November 28, 2024 5:49pm Do you have a Healthcare Power of Manufacturing Process Technician? No December 26, 2024 10:02am Do you have a Healthcare Power of Manufacturing Process Technician? No December 30, 2024 1:06am Do you have a Healthcare Power of Manufacturing Process Technician? No January 09, 2025 3:31pm Advance Directive Response Recorded Date/ Time Do you have a Healthcare Power of Manufacturing Process Technician? No January 02, 2025 8:14am Do you have a Healthcare Power of Manufacturing Process Technician? No January 28, 2025 3:02am Living Will No October 29, 2024 1:46am Do you have a Healthcare Power of Manufacturing Process Technician? No October 29, 2024 1:46am Living Will Yes November 21, 2024 5:32am Do you have a Healthcare Power of Manufacturing Process Technician? Yes November 21, 2024 5:32am Name of Medical Power of Manufacturing Process Technician anne Hernandez November 21, 2024 5:32am Do you have a Healthcare Power of Manufacturing Process Technician? No November 28, 2024 5:49pm Do you have a Healthcare Power of Manufacturing Process Technician? No December 26, 2024 10:02am Do you have a Healthcare Power of Manufacturing Process Technician? No December 30, 2024 1:06am Do you have a Healthcare Power of Manufacturing Process Technician? No January 09, 2025 3:31pm Do you have a Healthcare Power of Manufacturing Process Technician? No February 07, 2025 10:20pm Advance Directive Response Recorded Date/ Time Do you have a Healthcare Power of Manufacturing Process Technician? No January 02, 2025 8:14am Do you have a Healthcare Power of Manufacturing Process Technician? No January 28, 2025 3:02am Living Will No October 29, 2024 1:46am Do you have a Healthcare Power of Manufacturing Process Technician? No October 29, 2024 1:46am Living Will Yes November 21, 2024 5:32am Do you have a Healthcare Power of Manufacturing Process Technician? Yes November 21, 2024 5:32am Name of Medical Power of Manufacturing Process Technician anne Hernandez November 21, 2024 5:32am Do you have a Healthcare Power of Manufacturing Process Technician? No November 28, 2024 5:49pm Do you have a Healthcare Power of Manufacturing Process Technician? No December 26, 2024 10:02am Do you have a Healthcare Power of Manufacturing Process Technician? No December 30, 2024 1:06am Do you have a Healthcare Power of Manufacturing Process Technician? No January 09, 2025 3:31pm Do you have a Healthcare Power of Manufacturing Process Technician? No February 07, 2025 10:20pm Do you have a Healthcare Power of Manufacturing Process Technician? No February 13, 2025 4:40pm Advance Directive Response Recorded Date/ Time Do you have a Healthcare Power of Manufacturing Process Technician? No January 02, 2025 8:14am Do you have a Healthcare Power of Manufacturing Process Technician? No January 28, 2025 3:02am Living Will No October 29, 2024 1:46am Do you have a Healthcare Power of Manufacturing Process Technician? No October 29, 2024 1:46am Living Will Yes November 21, 2024 5:32am Do you have a Healthcare Power of Manufacturing Process Technician? Yes November 21, 2024 5:32am Name of Medical Power of Manufacturing Process Technician anne Hernandez November 21, 2024 5:32am Do you have a Healthcare Power of Manufacturing Process Technician? No November 28, 2024 5:49pm Do you have a Healthcare Power of Manufacturing Process Technician? No December 26, 2024 10:02am Do you have a Healthcare Power of Manufacturing Process Technician? No December 30, 2024 1:06am Do you have a Healthcare Power of Manufacturing Process Technician? No January 09, 2025 3:31pm Do you have a Healthcare Power of Manufacturing Process Technician? No February 07, 2025 10:20pm Do you have a Healthcare Power of Manufacturing Process Technician? No February 13, 2025 4:40pm Do you have a Healthcare Power of Manufacturing Process Technician? No February 16, 2025 6:30pm Advance Directive Response Recorded Date/ Time Do you have a Healthcare Power of Manufacturing Process Technician? No January 02, 2025 8:14am Do you have a Healthcare Power of Manufacturing Process Technician? No January 28, 2025 3:02am Living Will No October 29, 2024 1:46am Do you have a Healthcare Power of Manufacturing Process Technician? No October 29, 2024 1:46am Living Will Yes November 21, 2024 5:32am Do you have a Healthcare Power of Manufacturing Process Technician? Yes November 21, 2024 5:32am Name of Medical Power of Manufacturing Process Technician anne Hernandez November 21, 2024 5:32am Do you have a Healthcare Power of Manufacturing Process Technician? No November 28, 2024 5:49pm Do you have a Healthcare Power of Manufacturing Process Technician? No December 26, 2024 10:02am Do you have a Healthcare Power of Manufacturing Process Technician? No December 30, 2024 1:06am Do you have a Healthcare Power of Manufacturing Process Technician? No January 09, 2025 3:31pm Do you have a Healthcare Power of Manufacturing Process Technician? No February 07, 2025 10:20pm Do you have a Healthcare Power of Manufacturing Process Technician? No February 13, 2025 4:40pm Do you have a Healthcare Power of Manufacturing Process Technician? No February 16, 2025 7:47pm Chief Complaint [...] 9:36am SEPSIS WITH STAGHORN CALCULI September 5t 2024 5:04pm SEPSIS WITH STAGHORN CALCULI September 62024 [...] September 5:04pm SEPSIS WITH STAGHORN CALCULI September 6t 2024 12:41pm SEPSIS WITH STAGHORN CALCULI September 7t [...] uric acid staghorn calculus [facility] 2024 12:43am Hyponatremia October 29, 2024 [...] Date SEPSIS, UTI, DIARRHEA & ABDOMINAL PAIN [facility] 2024 12:43am SEPSIS, UTI, DIARRHEA & ABDOMINAL PAIN [facility] 2024 7:44am SEPSIS, UTI, DIARRHEA & ABDOMINAL PAIN [facility] 2024 8:20am SEPSIS, UTI, DIARRHEA & ABDOMINAL PAIN [facility] 2024 8:48pm SEPSIS, UTI, DIARRHEA & ABDOMINAL PAIN [facility] 2024 9:52am SEPSIS, UTI, DIARRHEA & [...] January 28, 2025 7:00 am Acute UTI Georgina 27th, 2025 7:00 am Hepatic encephalopathy January 28, [...] Thrombus Procedures Evaluate and treat HOSP MAIN [id number] [place] [address] Phone: tel: Referral ID Status Reason Start Date Expiration Date Visits Re quested Visits Authorized [id number] 1 Reason Comments Abdominal Pain Patient [...] dose 1418 (Given - Provid er: Wil Davis RT) morphine injection 4 mg (COMPLETED) 4 [...] November 11, 2024 Dr. Hill Caro , Other Provider Active Start: October 29, 2024 [...] 2024 End: November 11, 2024 Yue Delgadillo ACCESS ANALYST, ACCESS ANALYST-C Other Provider Active St art: October 29, [...] St art: October 29, 2024 Dr. Yury Caans MD Other Provider Active S tart: October [...] tart: October 31, 2024 Dr. Hill Caro , Admit Provider Active Start: October 31, 2024 Dr. Hill Caro , Other Provider Active Start: October 31, 2024 [...] t: October 31, 2024 Dr. Mason Samano , Other Provider Active St art: October 31, 2024 Dr. Anel Casey MD Other Provider Active Start: October 31, 2024 Dr. Robin Nobles MD Other Provider Active St art: October 31, 2024 Dr. Kenneth Noland , Other Provider Active Start: October 31, 2024 [...] Provider Active Start: November 05, 2024 Dr. lAber Dunn MD Emergency Provider Active S tart: [...] Active Start: November 07, 2024 Dr. Alber Dnun MD Emergency Provider [...] November 10, 2024 Dr. Scott Weston , DO Other Provider Active Sta rt: November 10, 2024 Yue Delgadillo ACCESS ANALYST, ACCESS ANALYST-C Other Provider Active St art: November 10, [...] Member Role Status Dates Josydominique Elias , ACCESS ANALYST-C Primary Care Provider Active Start: December 07, 2024 End: December 07, 2024 Josydominique Obrienf , ACCESS ANALYST-C Attending Provider Active Start: December 07, 2024 End: December 07, 2024 Team Status: Inactive Member Role Status Dates Josydominique Baumannhoantoinette , ACCESS ANALYST-C Primary Care Provider Active Start: December 15, 2024 End: December 15, 2024 Josydominique Elias , ACCESS ANALYST-C Attending Provider Active Start: December 15, 2024 End: December 15, 2024 Josy Elias , ACCESS ANALYST-C Referring Provider Active Start: December 15, 2024 End: December 15, 2024 Team Status: Inactive Member Role Status Dates Josydominique Elias , ACCESS ANALYST-C Primary Care Provider Active Start: December 26, 2024 End: December 26, 2024 Dr. Boone Carvajal DO Attending Provider Active Start: December 26, 2024 End: December 26, 2024 Dr. Boone Carvajal DO Emergency Provider Active Start: December 26, 2024 End: December 26, 2024 Team Status: Inactive Member Role Status Dates Josy Elias , ACCESS ANALYST-C Primary Care Provider Active Start: December 30, 2024 End: December 30, 2024 Dr. Mina Blood DO Attending Provider Active Start: December 30, 2024 End: December 30, 2024 Dr. Mina Blood DO Emergency Provider Active Start: December 30, 2024 End: December 30, 2024 Team Status: Inactive Member Role Status Dates Josydominique Elias , ACCESS ANALYST-C Primary Care Provider Active Start: January 02, [...] Active Member Role Status Dates Josy Elias , ACCESS ANALYST-C Primary Care Provider Active Start: January 03, [...] Active Member Role Status Dates Josy Elias ACCESS ANALYST-C Primary Care Provider Active Start: January 04, [...] Inactive Member Role Status Dates Josy Elias ACCESS ANALYST-C Primary Care Provider Active Start: January 09, [...] Active Member Role Status Dates Josy Elias ACCESS ANALYST-C Primary Care Provider Active Start: January 10, [...] Active St art: January 10, 2025 Dr. uYry Canas MD Other Provider Active [...] PenaC Primary Care Provider Active Start: January 11, [...] Active Member Role Status Dates Josy Elias ACCESS ANALYST-C Primary Care Provider Active Start: January 17, [...] Star t: January 17, 2025 Dr. Anurag Irnee MD Attending Provider Active Start: January 17, 2025 Dr. Anurag Irene MD Other Provider Active Sta rt: January 17, 2025 Dr. Cielo Tovar MD Other Provider Active St art: January 17, 2025 Team Status: Active Member Role Status Dates Josy Elias ACCESS ANALYST-C Primary Care Provider Active Start: January 18, [...] Active Member Role Status Dates Josy Elias ACCESS ANALYST-C Primary Care Provider Active Start: January 19, [...] St art: August 30, 2024 Dr. Kenneth Nloand DO Other Provider Active Start: August 30, [...] Active St art: September 06, 2024 Dr. Ndaeem Au MD Other Provider Active Star t: [...] Start: September 09, 2024 Dr. Rachel Joiner , DO Emergency Provider Active Start: September 09, 2024 Dr. Hill Caro , DO Admit Provider Active Start: September 09, 2024 Dr. Hill Caro DO Other Provider Active Start: September 09, 2024 Dr. Foster Rascon MD Other Provider Active Start: September 09, 2024 Dr. Thai Thurston MD Other Provider Active Start: September 09, 2024 Dr. Josefina Khan MD Other Provider Active Start: September 09, 2024 Dr. Jae Ash , Attending Provider Active Start: September 09, 2024 Dr. Jae Ash , DO Other Provider Active Start: September 09, 2024 Dr. Anurag Irene MD Other Provider Active Sta rt: September 09, 2024 Team Status: Active Member Role Status Dates No Primary Care Physician Primary Care Provider Active Start: September 10, 2024 Dr. Rachel Joiner DO Emergency Provider Active Start: September 10, 2024 Dr. Hill Caro , Admit Provider Active Start: September 10, 2024 [...] September 11, 2024 Dr. Jae Ash , Other Provider Active Start: September 11, 2024 [...] September 14, 2024 Dr. Hill Caro , Other Provider Active Start: September 14, 2024 Dr. Anurag Irene MD Other Provider Active Sta rt: September 14, 2024 Dr. Boone Izquierdo , Attending Provider Active Start: September 14, 2024 Dr. Boone Izquierdo , Other Provider Active Star t: September 14, [...] Other Provider Active Start: 2024 Jasmine Morocho ACCESS ANALYST, ACCESS ANALYST-C Attending Provider Active Start: September 29, 2024 Pedicurist Relationship Specialty Start Date End Date Maurice Rincon MD [address] [place] [address] PCP - General Internal Medicine 09/21/24 Team Status: Active Member Role Status Dates No Primary Care Physician Primary Care Provider Active Team Status: Active Member Role Status Dates No Primary Care Physician Primary Care Provider Active Start: October 29, 2024 Dr. Alber Dunn MD Emergency Provider Active S tart: October 29, 2024 Dr. Hill Caro , Admit Provider Active Start: October 29, 2024 Dr. Hill Caro , Attending Provider Active Start: October 29, 2024 Team Status: Active Member Role Status Dates No Primary Care Physician Primary Care Provider Active Start: November 01, 2024 Dr. Alber Dunn MD Emergency Provider Active S tart: November 01, 2024 Dr. Hill Caro , Admit Provider Active Start: November 01, 2024 Dr. Hlil Caro , Other Provider Active Start: November [...] Inactive Member Role Status Dates Josy Elias ACCESS ANALYST-C Primary Care Provider Active Start: December 26, 2024 End: December 26, 2024 Dr. Boone Carvajal , Emergency Provider Active Start: December 26, 2024 End: December 26, 2024 Team Status: Inactive Member Role Status Dates Josy Elias ACCESS ANALYST-C Primary Care Provider Active Start: December 30, 2024 End: December 30, 2024 Dr. Mina Blood , Emergency Provider Active Start: December 30, 2024 End: December 30, 2024 Team Status: Active Member Role Status Dates Josy Elias ACCESS ANALYST-C Primary Care Provider Active Start: January 02, 2025 Dr. Roddy Reeves , Emergency Provider [...] Provider Active Start: January 09, 2025 Dr. Brenan Mendez DO Emergency Provider Active S tart: [...] 2024 End: November 11, 2024 Yue Delgadillo ACCESS ANALYST, ACCESS ANALYST-C Other Provider Active St art: October 29, [...] Active Star t: October 29, 2024 Dr. aMson Samano DO Other Provider Active St art: [...] t: October 31, 2024 Dr. Mason Samano , Other Provider Active St art: October 31, 2024 Dr. Anel Casey MD Other Provider Active Start: October 31, 2024 Dr. Robin Nobles MD Other Provider Active St art: October 31, 2024 Dr. Kenneth Noland , Other Provider Active Start: October 31, 2024 [...] Sta rt: November 10, 2024 Yue Delgadillo ACCESS ANALYST, ACCESS ANALYST-C Other Provider Active St art: November 10, [...] Active Start: December 01, 2024 Dr. Hill Aucña MD Other Provider Active Star t: December [...] Team Status: Inactive Member Role/Relationship Status Dates YG Pena Primary Care Provider Active Start: December 07, 2024 End: December 07, 2024 YG Pena Attending Provider Active Start: December 07, 2024 End: December 07, 2024 Team Status: Inactive Member Role/Relationship Status Dates Josy Elias , ACCESS ANALYST-C Primary Care Provider Active Start: December 15, 2024 End: December 15, 2024 Josy Elias , ACCESS ANALYST-C Attending Provider Active Start: December 15, 2024 End: December 15, 2024 Josy Elias , ACCESS ANALYST-C Referring Provider Active Start: December 15, 2024 End: December 15, 2024 Team Status: Inactive Member Role/Relationship Status Dates Josy Elias , ACCESS ANALYST-C Primary Care Provider Active Start: December 26, 2024 End: December 26, 2024 Dr. Boone Carvajal , Attending Provider Active Start: December 26, 2024 End: December 26, 2024 Dr. Boone Carvajal , Emergency Provider Active Start: December 26, 2024 End: December 26, 2024 Team Status: Inactive Member Role/Relationship Status Dates Josy Elias , ACCESS ANALYST-C Primary Care Provider Active Start: December 30, 2024 End: December 30, 2024 Dr. Mina Blood DO Attending Provider Active Start: December 30, 2024 End: December 30, 2024 Dr. Mina Blood , Emergency Provider Active Start: December 30, 2024 End: December 30, 2024 Team Status: Inactive Member Role/Relationship Status Dates Josy Elias , ACCESS ANALYST-C Primary Care Provider Active Start: January 02, [...] Member Role/Relationship Status Dates Josy Elias , ACCESS ANALYST-C Primary Care Provider Active Start: January 03, [...] Status: Active Member Role/Relationship Status Dates Josydominique Elias , ACCESS ANALYST-C Primary Care Provider Active Start: January 04, [...] Active Member Role/Relationship Status Dates Josy Elias ACCESS ANALYST-C Primary Care Provider Active Start: January 05, [...] Inactive Member Role/Relationship Status Dates Josy Elias , ACCESS ANALYST-C Primary Care Provider Active Start: January 09, [...] Team Status: Active Member Role/Relationship Status Dates RBITTANY PenaC Primary Care Provider Active Start: January 10, [...] Active Member Role/Relationship Status Dates Josy Elias -C Primary Care Provider Active Start: January 11, [...] Active Member Role/Relationship Status Dates [facility] Active Start: January 12, [...] Active Member Role/Relationship Status Dates [facility] Primary [facility] Provider Active Start: January 13, [...] Active Member Role/Relationship Status Dates Josy Elias ACCESS ANALYST-C Primary Care Provider Active Start: January 15, [...] Active Member Role/Relationship Status Dates Josy Elias ACCESS ANALYST-C Primary Care Provider Active Start: January 17, [...] Active Member Role/Relationship Status Dates [facility] Primary [facility] Provider Active Start: January 18, [...] Active Member Role/Relationship Status Dates Josy Elias -C Primary Care Provider Active Start: January 19, [...] Start: January 31, 2025 Dr. Boone Izquierdo , Admit Provider Active Star t: January 31, 2025 Dr. Boone Izquierdo , Other Provider Active Star t: January 31, 2025 Dr. Yaritza Leo , Attending Provider Active S tart: January 31, 2025 Dr. Yaritza Leo , Other Provider Active Start : January 31, [...] Start: February 16, 2025 Dr. Niranjan Li DO Other Provider Active St art: February 16, 2025 Dr. Anurag Irene MD Attending Provider Active Start: February 16, 2025 BRITTANY PenaC Primary Care Provider Active Start: February 16, 2025 Team Status: Active Member Role/Relationship Status Dates Dr. Jerald Sherwood MD Primary Care Provider Active Start: February 17, 2025 Dr. Alber Dunn MD Emergency Provider Active S tart: February 17, 2025 Dr. Jae Ash , Admit Provider Active Start: February 17, 2025 [...] section and content) DATE CREATED AUTHOR 10/10/2024 [facility] DATE CREATED AUTHOR AUTHOR'S ORGANIZ ATION 12/13/2024 [facility] DATE CREATED AUTHOR AUTHOR'S ORGANIZ ATION 02/18/2025 [facility] DATE CREATED AUTHOR AUTHOR'S ORGANIZ ATION 03/04/2025 [facility] Source Comments (unrecognize d section and content) In the event this informatio n is protected by the Federal Confidentiality of Alcohol and Drug Abuse Patient Records regulations: The Federal rules restrict any use of the information to criminally investigate or prosecute any alcohol or drug abuse patient.[facility] the event this information is protected by the Federal Confidentiality of Alcohol and Drug Abuse Patient Records regulations: The Federal rules restrict any use of the information to criminally investigate or prosecute any alcohol or drug abuse patient.[facility] the event this information is protected by the Federal Confidentiality of Alcohol and Drug Abuse Patient Records regulations: The Federal rules restrict any use of the information to criminally investigate or prosecute any alcohol or drug abuse patient.[facility] the event this information is protected by the Federal Confidentiality of Alcohol and Drug Abuse Patient Records regulations: The Federal rules restrict any use of the information to criminally investigate or prosecute any alcohol or drug abuse patient.[facility] HospitalIn the event this information is protected by the Federal Confidentiality of Alcohol and Drug Abuse Patient Records regulations: The Federal rules restrict any use of the information to criminally investigate or prosecute any alcohol or drug abuse patient.[facility] Hospital[facility] the event this information is protected by the Federal Confidentiality of Alcohol and Drug Abuse Patient Records regulations: The Federal rules restrict any use of the information to criminally investigate or prosecute any alcohol or drug abuse patient.[facility] HospitalIn the event this information is protected by the Federal Confidentiality of Alcohol and Drug Abuse Patient Records regulations: The Federal rules restrict any use of the information to criminally investigate or prosecute any alcohol or drug abuse patient.[facility] HospitalIn the event this information is protected by the Federal Confidentiality of Alcohol and Drug Abuse Patient Records regulations: The Federal rules restrict any use of the information to criminally investigate or prosecute any alcohol or drug abuse patient.[facility] HospitalIn the event this information is protected by the Federal Confidentiality of Alcohol and Drug Abuse Patient Records regulations: The Federal rules restrict any use of the information to criminally investigate or prosecute any alcohol or drug abuse patient.[facility] HospitalIn the event this information is protected by the Federal Confidentiality of Alcohol and Drug Abuse Patient Records regulations: The Federal rules restrict any use of the information to criminally investigate or prosecute any alcohol or drug abuse patient.[facility] HospitalIn the event this information is protected by the Federal Confidentiality of Alcohol and Drug Abuse Patient Records regulations: The Federal rules restrict any use of the information to criminally investigate or prosecute any alcohol or drug abuse patient.[facility] FOR RECORDS PERTAINING TO PATIENTS WHO [...] BE BASED ON THE PRIMARY CLINICAL RECORDS. [facility]. provides no warranty or guarantee of the accuracy or completeness of information in this document.
[2025-03-11 17:42] LABS: Hematocrit 23.7 % (40-54); Hemoglobin 8.0 g/dL (13.0-16.5); Immature Granulocytes Count 0.040 X10^3/uL (0.0-0.0); Mean Corp Hgb Conc 33.8 g/dL (32-36); Mean Corpuscular Volume 92.6 fL (80-94); NRBC Flagged by Analyzer 0 % (0-5); POSITIVE COUNT YES; RBC Distribution Width CV 18.8 % (11.6-14.6); RBC Distribution Width SD 63.4 fl (35.1-43.9); Red Blood Count 2.56 M/mm3 (4.6-6.2); White Blood Count 8.2 K/mm3 (4.4-11.0)
--- NOTE | 2025-03-11 17:48 | EDS_ITS ---
HPI <PAULETTE Roberts - Last Filed: 03/11/25 22:00> History of Present Illness Chief Complaint: Hyperglycemia Narrative Narrative: 59-year-old male with PMH of HTN, HLD, DM2, liver 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 on hospice presents with hyperglycemia. He states his ex family checks his sugars and gives him his short acting and long-acting insulin. His sugar has read high the last 2 days. He has been on hospice the last 3 weeks and they come out weekly but he can call for acute concerns. He called today about the blood sugars but they did not get back to him in a timely manner so he called EMS. After sugar read high today Sylvia gave him some short acting insulin but he does not know how much. PFSH <PAULETTE Roberts - Last Filed: 03/11/25 22:00> [facility] Medical History Diffuse abdominal pain Acute hepatic encephalopathy Hyperammonemia Elevated liver enzymes Cirrhosis of liver with ascites Decompensated cirrhosis History of diabetes mellitus Chronic anemia VRE (vancomycin resistant enterococcus) culture positive Spinal stenosis, lumbar region with neurogenic claudication Hepatic encephalopathy Umbilical hernia Chronic hyponatremia Weakness Diarrhea Sepsis Acidosis, lactic Acute hypotension Acute UTI Chronic hypotension Obesity (BMI 30-39.9) Chronic back pain ISABEL (acute kidney injury) Hypotension Hyperbilirubinemia 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) HLD (hyperlipidemia) HTN (hypertension) Thrombocytopenia Chronic anemia Former tobacco use Diabetes mellitus, type 2 ABBY on CPAP Back pain Home Medications ?Medication ?Instructions ?Recorded ?Last Taken ?Type acetaminophen 500 mg tablet 1,000 mg PO Q8 PRN fever o r pain 10/28/24 Unknown History metformin 500 mg tablet,extended 500 mg PO QPM diabete s 11/21/24 02/15/25 History release 24 hr cyclobenzaprine 10 mg tablet 10 mg PO QHS muscle relax er 01/02/25 02/15/25 History insulin lispro 100 unit/mL 10 unit (0.1 mL) subcut TID AC #0 mL 01/05/25 02/15/25 Rx subcutaneous pen (Humalog KwikPen (U-100) Insulin) pen needle, diabetic 31 gauge x #1,200 ea 01/31/25 Unk nown Rx 12/17 (Pen Needle) carvedilol 3.125 mg tablet 3.125 mg PO BID 1 month #60 tabs 02/17/25 Unknown Rx furosemide 40 mg tablet 40 mg PO DAILY 30 days #30 t abs 02/17/25 Unknown Rx spironolactone 100 mg tablet 150 mg (1.5 x 100 mg) PO DAILY 1 02/17/25 02/15/25 Rx month #30 tabs ciprofloxacin HCl 500 mg tablet 500 mg PO DAILY #14 ta bs 02/27/25 Unknown Rx lactulose 10 gram/15 mL oral 20 g (30 mL) PO TID #1 mL 02/27/25 Unknown Rx solution insulin glargine-yfgn 100 unit/mL 20 unit subcut QHS 0 03/10/25 Unknown History (3 mL) subcutaneous pen potassium chloride 20 mEq 20 meq PO QDAY 7 days #7 tab s 03/10/25 Unknown Rx tablet,extended release (K-Tab) potassium chloride 20 mEq 20 meq PO BID 5 days #10 tab s 03/11/25 Unknown Rx tablet,extended release (K-Tab) Allergy/AdvReac Type Severity Reaction Status Date / Time No Known Allergies Allergy Verified 03/11/25 17:15 Family History Mother Heart disease Hypertension CAD (coronary artery disease) Myocardial infarction Father Hypertension Heart disease Heart failure Surgical History History of tonsillectomy and adenoidectomy Social History (Updated 03/10/25 @ 14:16 by Melly Hawthorne) household members: other details: ex /her Smoking Status: Former smoker how long ago did patient quit smoking: Quit ~ 3-4 months prior (fall 2023), smoked 1.5 ppd since teen until quit. alcohol intake: never substance use type: does not use additional social history: EX and a friend help with his care. ROS <PAULETTE Roberts - Last Filed: 03/11/25 22:00> ROS ED ROS Narrative Constitutional: Negative for fever, chills. CVS: Negative for chest pain. Respiratory: Negative for shortness of breath. EXAM <PAULETTE Roberts - Last Filed: 03/11/25 22:00> Physical Exam Narrative Exam Narrative: CONST: Patient sitting in no acute distress. Mildly jaundiced. EYES: Normal inspection. NECK: Normal inspection. RESP: No respiratory distress, CTAB. CVS: Regular rate and rhythm, no murmur, no gallop. ABD: Soft with mild ascites, no tenderness, no guarding or rebound. SKIN: Color normal, no rash, warm, dry, intact. EXTREMITIES: Normal appearance, no pedal edema. NEURO: Alert and answering questions appropriately. PSYCH: Normal affect. Const Vital Signs: 03/11/25 17:10 03/11/25 17:16 03/11/25 19:02 Temperature 98.1 F Temperature Source Oral Pulse Rate 72 70 Respiratory Rate 12 18 Respiratory Effort Normal Non-Labored Respiratory Pattern Normal Blood Pressure 105/74 96/71 Blood Pressure Mean 84 79 Pulse Ox 100 100 Oxygen Delivery Method Room Air Room Air 03/11/25 21:00 Temperature Temperature Source Pulse Rate 76 Respiratory Rate 25 H Respiratory Effort Respiratory Pattern Blood Pressure 100/56 L Blood Pressure Mean 70 Pulse Ox 100 Oxygen Delivery Method Room Air <Dr. Alber Dunn MD - Last Filed: 03/11/25 20:03> Physical Exam Const Vital Signs: 03/11/25 17:10 03/11/25 17:16 03/11/25 19:02 Temperature 98.1 F Temperature Source Oral Pulse Rate 72 70 Respiratory Rate 12 18 Respiratory Effort Normal Non-Labored Respiratory Pattern Normal Blood Pressure 105/74 96/71 Blood Pressure Mean 84 79 Pulse Ox 100 100 Oxygen Delivery Method Room Air Room Air 03/11/25 21:00 Temperature Temperature Source Pulse Rate 76 Respiratory Rate 25 H Respiratory Effort Respiratory Pattern Blood Pressure 100/56 L Blood Pressure Mean 70 Pulse Ox 100 Oxygen Delivery Method Room Air MDM <PAULETTE Roberts - Last Filed: 03/11/25 22:00> [facility] MDM Narrative Medical decision making narrative: Differential: Diabetic hyperglycemia versus DKA 59-year-old male on hospice for BOYER cirrhosis., With history of type 2 diabetes presents with high blood sugar. Has been reading high for 2 days. He called hospice but did not respond to timely manner according to him so he called EMS and came to the ED. He is awake alert no distress. Vital stable. Overall exam is benign other than findings consistent with his chronic liver disease. Glucose is 495 with normal CO2 and gap and no ketones. He was given 1 L IV fluids but I did not want to do more as it may third space with his cirrhosis. He was given 15 units of insulin but somehow his sugar only went from 495 to 494 so he will be observed longer and rechecked. It is trending down to 412, will continue to drop I feel he can go home continue to take his short long-acting insulin. Potassium was also 2.8 so he was given p.o. replacement here and a prescription for home. He will go home and take his long-acting insulin tonight, I discussed he may need to uptitrate his short acting insulin if it still reading high. He was discharged in stable condition. I have personally performed a face to face assessment of the patient and have reviewed the SAMSON Note. I performed a substantive portion of the visit including all aspects of the following. My blackwell findings include: History is [59-year-old male history of liver failure from Boyer with a history of ascites and diabetes. Presents due to elevated blood sugar.] Exam is [59-year-old male sitting upright in bed. Vital signs are stable afebrile. He does not look septic or toxic is in no distress. His pulse ox 100% on room air. H EENT exam pupils round react light. Moist mutes members. Neck nontender no JVD. Lungs clear to auscultation bilaterally. Heart regular rhythm no murmur rate about 70. Chest wall and ribs nontender. Abdomen soft nondistended normal bowel sounds without peritoneal signs. Mild ascites fluid. Completely nontender. Moving all 4 extremities. Nontender no edema. Neurologically he is awake and alert. Answering questions following commands.] Medical Decision Making [59-year-old diabetic male with liver failure with elevated blood sugar.] Other additions or changes: [None] Lab Data Labs: Laboratory Results - last 24 hr 03/11/25 03/11/25 03/11/25 17:25 19:47 20:18 WBC 8.2 RBC 2.56 L Hgb 8.0 L Hct 23.7 L MCV 92.6 MCH 31.3 MCHC 33.8 RDW Std Deviation 63.4 H RDW Coeff of Francis 18.8 H Plt Count 94 L MPV 12.1 H Immature Gran % (Auto) 0.500 Neut % (Auto) 70.2 H Lymph % (Auto) 12.6 L [place] % (Auto) 10.9 H Eos % (Auto) 5.2 H Baso % (Auto) 0.6 Absolute Neuts (auto) 5.8 Absolute Lymphs (auto) 1.03 Nucleated RBC % 0 Differential Comment SCANNED Platelet Estimate MOD DEC Sodium 128 L Potassium 2.8 L Chloride 96 L Carbon Dioxide 21.4 Anion Gap 11 BUN 16 Creatinine 1.30 H Estim Creat Clear Calc 69.27 Est GFR (MDRD) Non-Af 64 BUN/Creatinine Ratio 12.0 Glucose 495 H* Calcium 8.0 b-Hydroxybutyric mmol/L 0.0 POC Glucose > 500 H* 494 H* <Dr. Alber Dunn MD - Last Filed: 03/11/25 20:03> [facility] MDM Narrative Medical decision making narrative: I have personally performed a face to face assessment of the patient and have reviewed the SAMSON Note. I performed a substantive portion of the visit including all aspects of the following. My blackwell findings include: History is [59-year-old male history of liver failure from Boyer with a history of ascites and diabetes. Presents due to elevated blood sugar.] Exam is [59-year-old male sitting upright in bed. Vital signs are stable afebrile. He does not look septic or toxic is in no distress. His pulse ox 100% on room air. H EENT exam pupils round react light. Moist mutes members. Neck nontender no JVD. Lungs clear to auscultation bilaterally. Heart regular rhythm no murmur rate about 70. Chest wall and ribs nontender. Abdomen soft nondistended normal bowel sounds without peritoneal signs. Mild ascites fluid. Completely nontender. Moving all 4 extremities. Nontender no edema. Neurologically he is awake and alert. Answering questions following commands.] Medical Decision Making [59-year-old diabetic male with liver failure with elevated blood sugar.] Other additions or changes: [None] History & Record Review Discussion w/independent historian: Patient Additional record(s) reviewed:: Prior inpatient record, Prior outpatient record, Prior ED visit and Prior labs Lab Data Attestation: I reviewed the patient's lab results. Lab results narrative: CBC shows a white count 8.2. H&H 8.0 and 23.7. Platelets 94. Electrolytes show sodium 128. Potassium 2.8. BUN and creatinine 16 and 1.3. Gap 11. Glucose 495. Beta hydroxybutyric acid is 0 Labs: Laboratory Results - last 24 hr 08/03/2803/11/25 03/11/25 17:25 19:47 20:18 WBC 8.2 RBC 2.56 L Hgb 8.0 L Hct 23.7 L MCV 92.6 MCH 31.3 MCHC 33.8 RDW Std Deviation 63.4 H RDW Coeff of Francis 18.8 H Plt Count 94 L MPV 12.1 H Immature Gran % (Auto) 0.500 Neut % (Auto) 70.2 H Lymph % (Auto) 12.6 L [place] % (Auto) 10.9 H Eos % (Auto) 5.2 H Baso % (Auto) 0.6 Absolute Neuts (auto) 5.8 Absolute Lymphs (auto) 1.03 Nucleated RBC % 0 Differential Comment SCANNED Platelet Estimate MOD DEC Sodium 128 L Potassium 2.8 L Chloride 96 L Carbon Dioxide 21.4 Anion Gap 11 BUN 16 Creatinine 1.30 H Estim Creat Clear Calc 69.27 Est GFR (MDRD) Non-Af 64 BUN/Creatinine Ratio 12.0 Glucose 495 H* Calcium 8.0 b-Hydroxybutyric mmol/L 0.0 POC Glucose > 500 H* 494 H* Discharge Plan Triage Chief Complaint: Hyperglycemia ED Midlevel Provider: Day [facility] ED Provider: Alber Dunn Dx/Rx/DC Orders Clinical Impression: Acute hyperglycemia, Hx of type 2 diabetes mellitus, Liver 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, Acute hypokalemia Instructions: ED Diabetic Hyperglycemia Prescriptions: New potassium chloride [K-Tab] 20 mEq tablet extended release 20 meq PO BID 5 Days Qty: 10 0RF No Action potassium chloride [K-Tab] 20 mEq tablet extended release 20 meq PO QDAY 7 Days Qty: 7 0RF cyclobenzaprine 10 mg tablet 10 mg PO QHS insulin lispro [Humalog KwikPen Insulin] 100 unit/mL Insulin Pen 10 unit subcut TIDAC Qty: 0 0RF (DME) pen needle, diabetic [Pen Needle] 31 gauge x 5/16 needle See Rx Instructions .Route Qty: 1200 0RF Rx Instructions: As directed lactulose 10 gram/15 mL Solution 20 g PO TID Qty: 1 0RF ciprofloxacin HCl 500 mg tablet 500 mg PO DAILY Qty: 14 0RF Rx Instructions: start on 02/28/25 acetaminophen 500 mg Tablet 1,000 mg PO Q8 PRN (Reason: fever or pain) metformin 500 mg tablet extended release 24 hr 500 mg PO QPM furosemide 40 mg Tablet 40 mg PO DAILY 30 Days Qty: 30 2RF spironolactone 100 mg tablet 150 mg PO DAILY 30 Days Qty: 30 2RF Rx Instructions: Hold for serum potassium more than 5.0. carvedilol 3.125 mg tablet 3.125 mg PO BID 30 Days Qty: 60 2RF Rx Instructions: must administer with a meal/food insulin glargine-yfgn 100 unit/mL (3 mL) Insulin Pen 20 unit subcut QHS Primary Care Provider: Josy Elias Referrals: Josy Elias, CHEMICAL PRODUCTION TECHNICIAN-C [Primary Care Provider] - Activity Restrictions/Additional Instructions: Take your short acting insulin and long-acting insulin as home as prescribed, you may need to give additional units if it continues to run high. Contact your hospice group. Print Language: Hebrew Disposition Disposition: Home, Self Care
[2025-03-11 17:59] LABS: Differential Indicated SCAN CRITERIA MET
[2025-03-11 18:11] LABS: BETA-HYDROXYBUTYRATE 0.0 mmol/L (0.0-0.3)
[2025-03-11 18:13] LABS: Anion Gap 11 (5-15); BUN 16 mg/dL (4-19); BUN/Creat Ratio 12.0 RATIO (10-20); Calcium,Total 8.0 mg/dL (7.6-11.0); Carbon Dioxide 21.4 mmol/L (21.0-32.0); Chloride 96 mmol/L (98-108); Estimated Creatinine Clearance 69.27 ml/min (50-250); Glucose 495 mg/dL (70-99); Potassium 2.8 mmol/L (3.3-5.1)
[2025-03-11 18:36] LABS: Mean Platelet Vol. 12.1 fl (6.2-12.0); Platelet Count 94 K/mm3 (150-450)
[2025-03-11 18:37] LABS: Differential Comment SCANNED
[2025-03-11 19:02] VITALS: BP 96/71; PULSE 70; RESP 18; O2SAT 100
[2025-03-11] MEDS: 0.9% Normal Saline (1000mL) 1,000 ML 999 ML IV (19:14)
--- NOTE | 2025-03-11 19:50 | ED.RN ---
spoke with toney for pt update. she states she will be informing hospice of glucose.
--- NOTE | 2025-03-11 20:15 | ED.RN ---
[facility] updated on Pt status.
[2025-03-11 21:00] VITALS: BP 100/56; PULSE 76; RESP 25; O2SAT 100
[2025-03-11 22:11] VITALS: BP 98/65; PULSE 70; RESP 16; TEMP 36.7; O2SAT 100
--- NOTE | 2025-03-11 22:14 | ED.RN ---
Report called to Carrie at Hospice.
[2025-03-11] MEDS: Potassium Chloride Oral Tablet 20 MEQ 60 MEQ PO (22:17)
== END 2025-03-11 22:23 | disposition home or self-care (01) ==
PROVIDERS: Physician Assistant; Emergency Provider Emergency Medicine; PCP Nurse Practitioner Family; Visit Provider Emergency Medicine
DX: E11.65 Type 2 diabetes mellitus with hyperglycemia (principal); K75.81 Nonalcoholic steatohepatitis (NASH); E87.6 Hypokalemia; G47.33 Obstructive sleep apnea (adult) (pediatric); Z87.891 Personal history of nicotine dependence
CPT/HCPCS: 80048; 82010; 82962; 85025; 99285; A4216

== ENCOUNTER 2025-03-30 10:46 | Day surgery (SDC) | payer MEDICAID, SELFPAY ==
--- NOTE | 2025-03-10 10:20 | PAT.ANESEVAL ---
Pre-Assessment Diagnosis/Proposed Procedure Planned Operative Procedure(s): INSERTION TUNNLED CHEST TUBE PLACEMENT PLEUREX 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 - chief power dispatcher: 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 - chief power dispatcher Hx Hospitalization Yes 03/10/25 08:43 Any Problems With Anesthesia No 03/10/25 08:43 Cholinesterase deficiency No 03/10/25 08:43 You/Your Family Experience No 03/10/25 08:43 fever (hyperthermia) with Relationship Recent Exposure to Contagious No 01/18/25 09:01 Disease Does patient have nerve No 03/10/25 08:43 stimulator Patient instructed to have device shut off --Does patient have Pacemaker or ICD? When Was Last Pacemaker Check QUESTION #4 FULL TEXT: You/Your Family Experience fever (hyperthermia) with Anesthesia Last Oral Intake Last Oral intake: Last Oral Intake NPO since Meds taken in AM with sips of water? Meds patient instructed to take am of surgery PONV PONV - chief power dispatcher: PONV - chief power dispatcher Female No 03/10/25 08:43 HX of Motion Sickness No 03/10/25 08:43 HX of N/V After Surgery No 03/10/25 08:43 Non-Smoker Yes 03/10/25 08:43 Duration of Surgery greater No 03/10/25 08:43 than 60 minutes Number of Risk Factors 1 03/10/25 08:43 PONV Score Low Risk 03/10/25 08:43 Height & Weight Height & Weight: Anesthesia: Height & Weight Height 5 ft 9 in 02/26/25 15:23 Respiratory Assessment Respiratory Assessment - chief power dispatcher: Respiratory Tract Infection Hx - chief power dispatcher Hx Respiratory Tract Infection No 03/10/25 08:43 STOP Sleep Apnea STOP Sleep Apnea - chief power dispatcher: STOP Sleep Apnea - chief power dispatcher Hx Hypertension No 03/10/25 08:43 Hx Sleep Apnea Yes 03/10/25 08:43 CPAP Yes: doesn't use needs new 03/10/25 08:43 one BIPAP No 03/10/25 08:43 Do you snore loudly (louder than talking or can be heard Do you often feel tired/ fatigued/ sleepy during daytime? Has anyone observed you stop breathing during sleep? STOP Results Positive 03/10/25 08:43 QUESTION #5 FULL TEXT : Do you snore loudly (louder than talking or can be heard through closed doors)? Tobacco Use History Tobacco Use History - chief power dispatcher: Tobacco Use History - chief power dispatcher Tobacco Use Smoking Status Former smoker 03/10/25 08:43 Hx Tobacco Use Yes 03/10/25 08:43 Years Smoking Packs Smoked per Day Smoking Cessation Date was Yes - quit smoking within 15 03/10/25 08:43 within the last 15 years years Hx Smoking Cessation Date 05/04/24 03/10/25 08:43 Hx Smoking Cessation Counseling Hematologic Medial History Hematologic Hx - chief power dispatcher: Hematologic Medical Hx - extender Hx of Blood Transfusion Hx of Transfusion in last 3 Months Date of Last Transfusion (if within last 3 months) Ever experience any problems with transfusion(s)? Specify any problems Hx of Preganancy in last 3 Months Nurse Filling Out Transfusion & Questions: Date: Time: Patient unable to answer at Yes 03/10/25 08:43 this time (ie. confused, unrespo /Reproduction History /Reproductive History - chief power dispatcher: /Reproductive Hx- chief power dispatcher Hx Now Gestational Age (in weeks): EDC: Hx Hx Para Hx Section SAB No 03/10/25 08:43 PFSH Medical History Diffuse abdominal pain Acute hepatic encephalopathy Hyperammonemia Elevated liver enzymes Cirrhosis of liver with ascites Decompensated cirrhosis History of diabetes mellitus Chronic anemia VRE (vancomycin resistant enterococcus) culture positive Spinal stenosis, lumbar region with neurogenic claudication Hepatic encephalopathy Umbilical hernia Chronic hyponatremia Weakness Diarrhea Sepsis Acidosis, lactic Acute hypotension Acute UTI Chronic hypotension Obesity (BMI 30-39.9) Chronic back pain ISABEL (acute kidney injury) Hypotension Hyperbilirubinemia Liver cirrhosis secondary to HARRIS (nonalcoholic steatohepatitis) HLD (hyperlipidemia) HTN (hypertension) Thrombocytopenia Chronic anemia Former tobacco use Diabetes mellitus, type 2 ABBY on CPAP Back pain Home Medications ?Medication ?Instructions ?Recorded ?Last Taken ?Type acetaminophen 500 mg tablet 1,000 mg PO Q8 PRN fever or pain 10/28/24 Unknown History calcium 500 mg (as 1 tab PO DAILY supplement 10/28/24 02/15/25 History carbonate)-vitamin D3 5 mcg (200 unit) tablet (Oyster Shell Calcium-Vitamin D3) metformin 500 mg tablet,extended 500 mg PO QPM diabetes 11/21/24 02/15/25 History release 24 hr thiamine HCl (vitamin B1) 100 mg 100 mg PO DAILY supplement 11/21/24 02/15/25 History tablet zinc sulfate 50 mg zinc (220 mg) 50 mg PO DAILY supplement 11/21/24 02/15/25 History tablet cyclobenzaprine 10 mg tablet 10 mg PO QHS muscle relaxer 01/02/25 02/15/25 History ferrous sulfate 325 mg (65 mg 325 mg PO QODAY supplement 01/02/25 02/15/25 History iron) tablet (FeroSul) insulin lispro 100 unit/mL 10 unit (0.1 mL) subcut TIDAC #0 mL 01/05/25 02/15/25 Rx subcutaneous pen (Humalog KwikPen (U-100) Insulin) pen needle, diabetic 31 gauge x #1,200 ea 01/31/25 Unknown Rx 16 (Pen Needle) carvedilol 3.125 mg tablet 3.125 mg PO BID 1 month #60 tabs 02/17/25 Unknown Rx furosemide 40 mg tablet 40 mg PO DAILY 30 days #30 tabs 02/17/25 Unknown Rx spironolactone 100 mg tablet 150 mg (1.5 x 100 mg) PO DAILY 1 02/17/25 02/15/25 Rx month #30 tabs ciprofloxacin HCl 500 mg tablet 500 mg PO DAILY #14 tabs 02/27/25 Unknown Rx lactulose 10 gram/15 mL oral 20 g (30 mL) PO TID #1 mL 02/27/25 Unknown Rx solution insulin glargine-yfgn 100 unit/mL 20 unit subcut QHS 03/10/25 Unknown History (3 mL) subcutaneous pen Allergy/AdvReac Type Severity Reaction Status Date / Time No Known Allergies Allergy Verified 03/10/25 08:25 Family History Mother Heart disease Hypertension CAD (coronary artery disease) Myocardial infarction Father Hypertension Heart disease Heart failure Surgical History History of tonsillectomy and adenoidectomy Social History household members: significant other Smoking Status: Former smoker how long ago did patient quit smoking: Quit ~ 3-4 months prior (fall 2023), smoked 1.5 ppd since teen until quit. alcohol intake: never substance use type: does not use Audit: Pertinent Findings Pertinent Findings Additional pertinent findings: K=3.2, KA=220, Recommendation Anesthesia Recommendation Anesthesia recommendation: F/U recommended (please have hypokalemia and uncontrolled glucose optimized prior to surgery)
--- NOTE | 2025-03-10 13:10 | NURSING ---
DR PATEL CALLED THIS NURSE, WILL ORDER K+ FOR PT TO TAKE BEFORE SURGERY. PER DR GALLEGO, NO FOLLOWUP LABS NEEDED DOS. PT OK TO PROCEED WITH SURGERY 03/11.
[2025-03-30] VITALS (8 sets, daily range): BP systolic 102–127; BP diastolic 63–81; PULSE 69–87; RESP 16–18; TEMP 36.1–36.3; O2SAT 97–100; BMI 29.9
[2025-03-30] MEDS: Lactated Ringers 1,000 ML 15 ML IV (11:00)
--- NOTE | 2025-03-30 11:04 | PCM.HP.BLA ---
History and Physical Date of Admission: 03/30/25 Intake Vital Signs 02/26/2515:23 03/10/2514:16 Height 5 ft 9 in 5 ft 9 in Weight: 197 lb BMI 29.0 BP 95/59 L Blood Pressure Location Rt brachial Position Sitting Respiration 17 Pulse 77 Pulse Source Monitor Pulse Oximetry (%) 99 Oxygen Delivery Method room air Intake Visit Reasons: PLEUREX CATH Chief Complaint: pleurex cath Is patient in pain?: Yes (back and abdominal pain. Takes oxycodone to help) Pain scale (1-10): 5 Allergies No Known Allergies Allergy (Verified 03/10/25 14:17) Medications ?Medication ?Instructions ?Recorded ?Confirmed ?Type acetaminophen 500 mg tablet 1,000 mg PO Q8 PRN fever or pain 10/28/24 03/10/25 History metformin 500 mg tablet,extended 500 mg PO QPM diabetes 11/21/24 03/10/25 History release 24 hr cyclobenzaprine 10 mg tablet 10 mg PO QHS muscle relaxer 01/02/25 03/10/25 History insulin lispro 100 unit/mL 10 unit (0.1 mL) subcut TIDAC #0 mL 01/05/25 03/10/25 Rx subcutaneous pen (Humalog KwikPen (U-100) Insulin) pen needle, diabetic 31 gauge x #1,200 ea 01/31/25 02/16/25 Rx 12/17 (Pen Needle) carvedilol 3.125 mg tablet 3.125 mg PO BID 1 month #60 tabs 02/17/25 03/10/25 Rx furosemide 40 mg tablet 40 mg PO DAILY 30 days #30 tabs 02/17/25 03/10/25 Rx spironolactone 100 mg tablet 150 mg (1.5 x 100 mg) PO DAILY 1 02/17/25 03/10/25 Rx month #30 tabs ciprofloxacin HCl 500 mg tablet 500 mg PO DAILY #14 tabs 02/27/25 03/10/25 Rx lactulose 10 gram/15 mL oral 20 g (30 mL) PO TID #1 mL 02/27/25 03/10/25 Rx solution insulin glargine-yfgn 100 unit/mL 20 unit subcut QHS 03/10/25 03/10/25 History (3 mL) subcutaneous pen potassium chloride 20 mEq 20 meq PO QDAY 7 days #7 tabs 03/10/25 03/10/25 Rx tablet,extended release (K-Tab) [facility] Medical History Diffuse abdominal pain Acute hepatic encephalopathy Hyperammonemia Elevated liver enzymes Cirrhosis of liver with ascites Decompensated cirrhosis History of diabetes mellitus Chronic anemia VRE (vancomycin resistant enterococcus) culture positive Spinal stenosis, lumbar region with neurogenic claudication Hepatic encephalopathy Umbilical hernia Chronic hyponatremia Weakness Diarrhea Sepsis Acidosis, lactic Acute hypotension Acute UTI Chronic hypotension Obesity (BMI 30-39.9) Chronic back pain ISABEL (acute kidney injury) Hypotension Hyperbilirubinemia Liver cirrhosis secondary to HARRIS (nonalcoholic steatohepatitis) HLD (hyperlipidemia) HTN (hypertension) Thrombocytopenia Chronic anemia Former tobacco use Diabetes mellitus, type 2 ABBY on CPAP Back pain Surgical History History of tonsillectomy and adenoidectomy Family History Mother Heart disease Hypertension CAD (coronary artery disease) Myocardial infarctionFather Hypertension Heart disease Heart failure Social History (Updated 03/10/25 @ 14:16 by Melly Hawthorne) household members: other details: ex /her Smoking Status: Former smoker how long ago did patient quit smoking: Quit ~ 3-4 months prior (fall 2023), smoked 1.5 ppd since teen until quit. alcohol intake: never substance use type: does not use additional social history: EX and a friend help with his care. HPI HPI HPI: Patient is a 59-year-old male with liver cirrhosis. He is in hospice care. He is here to request a Pleurx catheter to be placed in his abdomen for his ascites. He says he has been getting drained monthly. He reports that hospice would like to drain it more frequently. ROS General General: Yes weight change and weakness; No appetite, fatigue, colon cancer or breast cancer HEENT HEENT: No difficulty swallowing, eye injury, eye surgery, swollen glands or hoarseness Endo Endocrine: Yes diabetes mellitus; No thyroid disease, thyroid cancer, Hair loss, heat intolerance or cold intolerance Skin Skin: No rash or changing moles Musc Musculoskeletal: Yes back problems; No arthritis, rheumatoid arthritis, gout or joint pain Cardio Cardiovascular: Yes high blood pressure; No murmur, pacemaker, heart disease, atrial fibrillation, heart attack, heart stent, palpitations, shortness of breath with exertion or chest pain Psych Psychiatric: Yes depression; No anxiety or hearing voices Resp Respiratory: No shortness of breath, No sleep apnea, No cough, No COPD, No asthma, No emphysema and No wheezing Gastro Gastrointestinal: Yes abdominal pain, Yes nausea or vomiting, Yes diarrhea, No constipation, No blood in stool, Yes acid reflux, No hemorrhoids, No ulcers, No gallbladder problem and Yes black,tarry stools Ben Hematologic: No blood thinners, No blood disorders, No bleeding, No anemia and No blood clots Neuro Neurologic: No system reviewed and no additional complaints, except as documented, No as per HPI, No abnormal gait, No abnormal hearing, No abnormal movements, No abnormal speech, No behavioral changes, No burning sensations, No confusion, No convulsions, Yes disequilibrium, No dizziness, No localized weakness, No frequent falls, No headache(s), No lack of coordination, No loss of vision, No memory loss, No numbness, No other visual disturbances, No radicular pain, No restless legs, No sensory deficit, No syncope, No tingling, No tremor(s), Yes weakness and No other Exam Const General: cooperative Orientation: alert and oriented x3 HENCT Head: normal to inspection Neck Neck: normal visual inspection and full ROM Chest Chest palpation & inspection: normal inspection of the chest Resp Effort & Inspection: normal respiratory effort Auscultation: clear to auscultation bilaterally Cardio Rate: regular rate Rhythm: regular rhythm GI Inspection: non-distended Palpation: soft and nontender Skin General: no rashes or lesions noted Neuro General: patient alert and patient oriented x3 Extrem General: full ROM Psych Appearance: grossly normal Mental Status: mental status grossly normal Assessment and Plan Assessment and Plan (1) Hepatic cirrhosis: Status: Acute Plan: The patient has cirrhosis which is end-stage. The patient is here to request an abdominal Pleurx. He says that hospice gave him my name and recommended me although hospice told us that this was patient requested. I am unsure if he has enough ascites to drain currently as he just had paracentesis on March 04. His abdomen is soft and nondistended currently. I have recommended waiting 2 weeks for the ascites to reform and then I will place a Pleurx catheter in the abdomen. I discussed the procedure as well as the risks. I discussed the risks including but not limited to bleeding, infection, injury to underlying bowel. Patient understands the risks and is willing to proceed. Patient also had low potassium so I will order an potassium for the next week to replenish. Roby Balderas MD Pager: [facility] [address] [place] [address], [address] [place] [address] Office: I have examined the patient and the H&P has been reviewed. There are no clinical changes since date of exam.
--- NOTE | 2025-03-30 11:27 | PCM.PRE.AN2 ---
ASA Classification* ASA Classification ASA Classification: 4 Assessment & Plan Anesthesia* Anesthesia Assessment Anesthesia Assessment: Discussed sedation and/or anesthesia options, risks, benefits, and alternatives with patient/parents/legal guardian/POA. Questions invited. The patient/parents/legal guardian/POA seems to understand and agrees to proceed with anesthesia plan. Reviewed the physical assessment, medical history, allergy history and patient home medications list prior to surgery/procedure/anesthetic and documented any changes. Performed airway and anesthesia risk assessments. Anesthesia Type Anesthesia Type: MAC History Source History Obtained from:: Patient and Chart Anesthesia Focused Assessment* Temperature: 97 F Pulse Rate: 87 Blood Pressure: 109/77 Respiratory Rate: 18 Pulse Ox: 97 Oxygen Delivery Method: Room Air Airway Assessment Mouth opens: 2 cm Mallampati Score: II Teeth Condition: Intact and Chipped/Broken Neck Range of motion (ROM): Full ROM Labs Anesthesia Preop lab: CBC WBC 8.2 K/mm3 (4.4-11.0) 03/11/25 17:03/11/25 RBC 2.56 M/mm3 (4.6-6.2) L 03/11/25 17:25 03/11/25 Hgb 8.0 g/dL (13.0-16.5) L 03/11/25 17:25 03/11/25 Hct 23.7 % (40-54) L 03/11/25 17:25 03/11/25 Plt Count 94 K/mm3 (150-450) L 03/11/25 17:25 03/11/25 CHEMISTRY Potassium 2.8 mmol/L (3.3-5.1) L 03/11/25 17:25 03/11/25 Sodium 128 mmol/L (133-145) L 03/11/25 17:25 03/11/25 Magnesium 1.3 mg/dL (1.5-2.2) L 02/16/25 20:02 02/16/25 Phosphorus 2.3 mg/dL (2.7-4.5) L 02/16/25 20:02 02/16/25 BUN 16 mg/dL (4-19) 03/11/25 17:25 03/11/25 Creatinine 1.30 mg/dL (0.70-1.20) H 03/11/25 17:25 03/11/25 Glucose 495 mg/dL (70-99) H* 03/11/25 17:25 03/11/25 POC Glucose 147 mg/dL (74-106) H 03/24/25 08:11 03/24/25 TSH 0.826 uIU/mL (0.358-3.740) 09/04/24 23:07 09/04/24 COAG PT 23.7 SECONDS (11.7-14.9) H 02/26/25 05:14 02/26/25 Pre-Assessment Diagnosis/Proposed Procedure Planned Operative Procedure(s): INSERTION TUNNLED CHEST TUBE PLACEMENT PLEUREX 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 When Was Last Pacemaker Check QUESTION #4 FULL TEXT: You/Your Family Experience fever (hyperthermia) with Anesthesia Last Oral Intake Last Oral intake: Last Oral Intake NPO since 00:00 03/30/25 10:56 Meds taken in AM with sips of Yes 03/30/25 10:56 water? Meds patient instructed to coreg 03/30/25 10:56 take am of surgery PONV PONV - motor patrol operator: PONV - motor patrol operator Female No 03/10/25 08:43 HX of Motion Sickness No 03/10/25 08:43 HX of N/V After Surgery No 03/10/25 08:43 Non-Smoker Yes 03/10/25 08:43 Duration of Surgery greater No 03/10/25 08:43 than 60 minutes Number of Risk Factors 1 03/10/25 08:43 PONV Score Low Risk 03/10/25 08:43 Height & Weight Height & Weight: Anesthesia: Height & Weight Height 5 ft 9 in 03/30/25 10:56 Weight: 92 kg 03/30/25 10:56 Body Mass Index (BMI) 29.9 03/30/25 10:56 Respiratory Assessment Respiratory Assessment - motor patrol operator: Respiratory Tract Infection Hx - motor patrol operator Hx Respiratory Tract Infection No 03/10/25 08:43 STOP Sleep Apnea STOP Sleep Apnea - motor patrol operator: STOP Sleep Apnea - motor patrol operator Hx Hypertension No 03/10/25 08:43 Hx Sleep Apnea Yes 03/10/25 08:43 CPAP Yes: doesn't use needs new 03/10/25 08:43 one BIPAP No 03/10/25 08:43 Do you snore loudly (louder than talking or can be heard Do you often feel tired/ fatigued/ sleepy during daytime? Has anyone observed you stop breathing during sleep? STOP Results Positive 03/10/25 08:43 QUESTION #5 FULL TEXT : Do you snore loudly (louder than talking or can be heard through closed doors)? 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 Specify any problems Hx of Preganancy in last 3 Months Nurse Filling Out Transfusion & Questions: Date: Time: Patient unable to answer at Yes 03/10/25 08:43 this time (ie. confused, unrespo /Reproduction History /Reproductive History - motor patrol operator: /Reproductive Hx- motor patrol operator Hx Now Gestational Age (in weeks): EDC: Hx Hx Para Hx Section SAB No 03/10/25 08:43 Active Medications Active Medications: Current Medications Generic Name Dose Route Start Last Admin Trade Name Freq PRN Reason Stop Dose Admin Cefazolin Sodium 2 gm/ Sodium 110 mls @ 200 mls/hr 03/30/25 12:00 Chloride IV 03/30/25 12:32 INTRAOP ONE Lactated Ringer's 1,000 mls @ 15 mls/hr 03/30/25 11:00 03/30/25 11:00 IV 15 mls/hr .Q48H KRYSTIN Administration PFSH Medical History Diffuse abdominal pain Acute hepatic encephalopathy Hyperammonemia Elevated liver enzymes Cirrhosis of liver with ascites Decompensated cirrhosis History of diabetes mellitus Chronic anemia VRE (vancomycin resistant enterococcus) culture positive Spinal stenosis, lumbar region with neurogenic claudication Hepatic encephalopathy Umbilical hernia Chronic hyponatremia Weakness Diarrhea Sepsis Acidosis, lactic Acute hypotension Acute UTI Chronic hypotension Obesity (BMI 30-39.9) Chronic back pain ISABEL (acute kidney injury) Hypotension Hyperbilirubinemia Liver cirrhosis secondary to HARRIS (nonalcoholic steatohepatitis) HLD (hyperlipidemia) HTN (hypertension) Thrombocytopenia Chronic anemia Former tobacco use Diabetes mellitus, type 2 ABBY on CPAP Back pain Home Medications ?Medication ?Instructions ?Recorded ?Last Taken ?Type acetaminophen 500 mg tablet 1,000 mg PO Q8 PRN fever or pain 10/28/24 Unknown History cyclobenzaprine 10 mg tablet 10 mg PO QHS muscle relaxer 01/02/25 02/15/25 History insulin lispro 100 unit/mL 10 unit (0.1 mL) subcut TIDAC #0 mL 01/05/25 02/15/25 Rx subcutaneous pen (Humalog KwikPen (U-100) Insulin) pen needle, diabetic 31 gauge x #1,200 ea 01/31/25 Unknown Rx 5/16 (Pen Needle) carvedilol 3.125 mg tablet 3.125 mg PO BID 1 month #60 tabs 02/17/25 03/30/25 Rx furosemide 40 mg tablet 40 mg PO DAILY 30 days #30 tabs 02/17/25 Unknown Rx spironolactone 100 mg tablet 150 mg (1.5 x 100 mg) PO DAILY 1 02/17/25 02/15/25 Rx month #30 tabs ciprofloxacin HCl 500 mg tablet 500 mg PO DAILY #14 tabs 02/27/25 Unknown Rx lactulose 10 gram/15 mL oral 20 g (30 mL) PO TID #1 mL 02/27/25 Unknown Rx solution insulin glargine-yfgn 100 unit/mL 30 unit subcut QHS 03/10/25 Unknown History (3 mL) subcutaneous pen Allergy/AdvReac Type Severity Reaction Status Date / Time No Known Allergies Allergy Verified 03/30/25 10:55 Family History Mother Heart disease Hypertension CAD (coronary artery disease) Myocardial infarction Father Hypertension Heart disease Heart failure Surgical History History of tonsillectomy and adenoidectomy Social History (Updated 03/10/25 @ 14:16 by Melly Hawthorne) household members: other details: ex /her Smoking Status: Former smoker how long ago did patient quit smoking: Quit ~ 3-4 months prior (fall 2023), smoked 1.5 ppd since teen until quit. alcohol intake: never substance use type: does not use additional social history: EX and a friend help with his care. Review of Systems (Anesthesia) ROS Narrative System reviewed and no additional complaints, except as documented.
[2025-03-30] MEDS: Cefazolin 1 GM/5 ML Vial 2 GM IV (11:32)
[2025-03-30] MEDS: Lidocaine 1% (5 ml sdv) 5 ML Vial 4 ML IV (11:37)
--- NOTE | 2025-03-30 11:58 | OP.PCM_ITS ---
Operative Report (Standard) Operative Information Date of Procedure: 03/30/25 Pre-Operative Diagnosis: Cirrhotic ascites Post-Operative Diagnosis: Same Surgery/Procedure Performed: Ultrasound-guided placement of tunneled PleurX catheter in the abdomen aviation engineer: No Type of Anesthesia: Local MAC RN Documented Start/Stop Times: Operation Date: 03/30/25 12:00 Case Time Into Pre-Op 03/30/25 10:49 Anesthesia Start 03/30/25 11:32 Into Room 03/30/25 11:32 Procedure Start 03/30/25 11:43 Procedure End 03/30/25 11:53 Anesthesia End 03/30/25 11:57 Out of Room 03/30/25 11:57 Out of Pre-Op Procedure Start Time: 11:43 Procedure Stop Time: 11:53 Select all DRAINS/GRAFTS/IMPLANTS that apply: Drains Drain details: PleurX in the abdominal cavity Estimated Blood Loss: 5 Specimen collected: Yes Description of specimen(s) removed: 1000 cc of ascites Description of surgery: Patient was brought back to the operating room MAC anesthesia was induced. The right side of the abdomen was prepped and draped. Ultrasound was used to localize a pocket of fluid. The skin overlying this was injected with local anesthetic as well as another incision site more inferior. Both incisions were made with a scalpel and then using the superior incision a needle was placed into the abdomen under ultrasound guidance until clear fluid was drawn back. A guidewire was placed through the needle into the abdomen. The needle was removed over the guidewire. Peel-away sheath was placed over the guidewire and the guidewire was removed. Next the catheter was tunneled from the lower incision to the upper incision and then placed through the peel-away sheath into the abdomen. The peel-away sheath was removed and the incision was closed with interrupted 3-0 Vicryl suture. Dermabond was applied. Next the catheter was connected to suction and 1 L of ascites was removed. Next the catheter was clamped and the dressing was placed. Patient was taken the PACU in stable condition. Surgical Findings: Ascites Complications Complications: No
--- NOTE | 2025-03-30 12:01 | EX.PCM.DISCH ---
Discharge Instructions Diet Discharge Diet: Light diet - advance as tolerated Activity Discharge Activity: No Restrictions and May Shower Weight Bearing Status: Weight bearing as tolerated Dressing / Incision Call your doctor if your incision/area has: Continuous Slow Oozing, Sudden Increased Bleeding, Increased Pain/ Swelling, Increased Redness, Foul Smelling Discharge and Swelling at the incision site Call your doctor if you observe: Fever of 101 or Higher Remove Dressing in: 4 days Cleanse incision/area with: Soap & Water Follow Up Care Please Follow Up With: Roby Balderas MD When: Follow up as needed [phone] Test Results: Test results from this visit will be discussed in further detail at your follow-up appointment, if applicable. Discharge Plan Admission Attending Provider: Roby Balderas Primary Care Provider: Josy Elias Instructions Print Language: Serbian Discharge Orders/Prescriptions Prescriptions: No Action cyclobenzaprine 10 mg tablet 10 mg PO QHS insulin lispro [Humalog KwikPen Insulin] 100 unit/mL Insulin Pen 10 unit subcut TIDAC Qty: 0 0RF (DME) pen needle, diabetic [Pen Needle] 31 gauge x 5/16 needle See Rx Instructions .Route Qty: 1200 0RF Rx Instructions: As directed lactulose 10 gram/15 mL Solution 20 g PO TID Qty: 1 0RF ciprofloxacin HCl 500 mg tablet 500 mg PO DAILY Qty: 14 0RF Rx Instructions: start on 02/28/25 acetaminophen 500 mg Tablet 1,000 mg PO Q8 PRN (Reason: fever or pain) furosemide 40 mg Tablet 40 mg PO DAILY 30 Days Qty: 30 2RF spironolactone 100 mg tablet 150 mg PO DAILY 30 Days Qty: 30 2RF Rx Instructions: Hold for serum potassium more than 5.0. carvedilol 3.125 mg tablet 3.125 mg PO BID 30 Days Qty: 60 2RF Rx Instructions: must administer with a meal/food insulin glargine-yfgn 100 unit/mL (3 mL) Insulin Pen 30 unit subcut QHS Referrals / Follow Up: Josy Elias, DYE AND CHEMICAL COORDINATOR-C [Primary Care Provider] - Disposition Disposition (needs filled in before D/C Order can be placed): Home, Self Care
--- NOTE | 2025-03-30 12:03 | PCM.POST.ANE ---
Anesthesia: Postop Eval I Current Vital Signs Temperature: 97.2 F Pulse Rate: 76 Blood Pressure: 113/74 Respiratory Rate: 16 Pulse Ox: 100 Oxygen Delivery Method: Room Air Assessment Airway patent: Yes Spontaneous unlabored respirations: Yes Mental status: Awake and Calm nausea: No Vomiting: No Anesthesia Complication: No Fluid Hydration Crystalloid volume administer (ml): 300 Total IV fluid infused: 300 Progress Note Anesthesia document: Postop Eval 1 completed: Yes
--- NOTE | 2025-03-30 13:03 | POSTOPAN2_ITS ---
Anesthesia Postop Eval I Sum Postop Eval Completion status Anesthesia document: Postop Eval 1 completed: Yes Anesthesia Postop Eval I Summary Anesthesia Postop Eval I Summary: Anesthesia Postop Eval I: Assessment Summary Airway patent Yes 03/30/25 12:03 [email or web address] Spontaneous unlabored Yes 03/30/25 12:03 [email or web address] respirations Mental status Awake,Calm 03/30/25 12:03 [email or web address] [email or web address] nausea No 03/30/25 12:03 [email or web address] [email or web address] Vomiting No 03/30/25 12:03 [email or web address] [email or web address] Anesthesia Postop Eval I: Fluid Summary Crystalloid volume administer 300 03/30/25 12:03 [email or web address] (ml) Colloids volume administered ( ml) Blood Product volume administered (ml) Total IV fluid infused 300 03/30/25 12:03 [email or web address] Anesthesia Postop Eval I: Summary Notes Anesthesia Complication No 03/30/25 12:03 [email or web address] Anesthesia Complication Comment: Post-operative progress note Anesthesia: Postop Eval II Evaluation Mental status: Awake Pain Level: 0 nausea: No Vomiting: No Complications Anesthesia Complication: No
--- NOTE | 2025-03-30 13:03 | PCM.POSTANE2 ---
Anesthesia Postop Eval I Sum Postop Eval Completion status Anesthesia document: Postop Eval 1 completed: Yes Anesthesia Postop Eval I Summary Anesthesia Postop Eval I Summary: Anesthesia Postop Eval I: Assessment Summary Airway patent Yes 03/30/25 12:03 LICENSED CERTIFIED ORTHOTIST.[email or web address] Spontaneous unlabored Yes 03/30/25 12:03 LICENSED CERTIFIED ORTHOTIST.ORTIZ respirations Mental status Awake,Calm 03/30/25 12:03 LICENSED CERTIFIED ORTHOTIST.REENAOBEstefany nausea No 03/30/25 12:03 LICENSED CERTIFIED ORTHOTIST.[email or web address] Vomiting No 03/30/25 12:03 LICENSED CERTIFIED ORTHOTIST.[email or web address] Anesthesia Postop Eval I: Fluid Summary Crystalloid volume administer 300 03/30/25 12:03 LICENSED CERTIFIED ORTHOTIST.REENAOBY (ml) Colloids volume administered ( ml) Blood Product volume administered (ml) Total IV fluid infused 300 03/30/25 12:03 LICENSED CERTIFIED ORTHOTIST.ORTIZ Anesthesia Postop Eval I: Summary Notes Anesthesia Complication No 03/30/25 12:03 LICENSED CERTIFIED ORTHOTIST.ORTIZ Anesthesia Complication Comment: Post-operative progress note Anesthesia: Postop Eval II Evaluation Mental status: Awake Pain Level: 0 nausea: No Vomiting: No Complications Anesthesia Complication: No
== END 2025-03-30 13:12 | disposition home or self-care (01) ==
LOC: SDC 10:47 → AC 10:47
PROVIDERS: PCP Nurse Practitioner Family; Referring Provider Surgery; Visit Provider Surgery
PROC: (CPT 32550; principal; 2025-03-30 11:45)
DX: K74.60 Unspecified cirrhosis of liver (principal); E11.9 Type 2 diabetes mellitus without complications; Z79.4 Long term (current) use of insulin; R18.8 Other ascites; Z87.891 Personal history of nicotine dependence
CPT/HCPCS: 32550; 00520; 82962; C1729; J2405

== ENCOUNTER 2025-04-03 20:13 | Emergency (ER) | payer MEDICAID, SELFPAY ==
[2025-04-03 20:14] VITALS: BP 117/83; PULSE 109; RESP 20; TEMP 36.6; O2SAT 95
--- OUTSIDE RECORDS SUMMARY | 2025-04-03 20:41 | XMS RPT_ITS | CCD ---
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 Danny Hutton DO Attending Provider Dr. Danny Hutton DO Emergency Provider Dr. Luis Carlos Anderson DO Emergency Provider Mone HERNANDEZ, Dr. Maria Guadalupe Carlson Admit Provider Dr. Maria Guadalupe Shore MD Referring Provider Dr. Maria Guadalupe Shore MD Other Provider [phone] Rick Carlin DO Attending Provider Erin HERNANDEZ, Dr. Rocha Other Provider Zelalem HERNANDEZ, Dr. Coker Other Provider Dr. Christian Abdi MD Other Provider Dr. Juarez Baird MD Other Provider [phone] Bola Meraz DO Attending Provider Dr. Bola Meraz DO Other Provider Víctor HERNANDEZ, Dr. Hill Alcaraz Other Provider Ashli HERNANDEZ, Dr. Aguilar Other Provider Dr. Yury Canas MD Other Provider Ashely HERNANDEZ, Dr. Foote Other Provider Cassandra HERNANDEZ, Dr. Garvin Other Provider [phone] Yamil HERNANDEZ, Dr. Solis Other Provider [phone] Rojas HERNANDEZ, Dr. Enriquez Other Provider Seble HERNANDEZ, Dr. Hernández Other Provider Desmond HERNANDEZ, Dr. Snow Other Provider Unavailabl karma Vneegas MD, Dr. Whyte Other Provider Laurent HERNANDEZ, [...] Provider Teto HERNANDEZ, Dr. Osborn Referring Provider Noim HERNANDEZ, Dr. Douglas Other Provider [phone] Teto HERNANDEZ, Dr. Osborn Attending Provider Dr. Jae Ash DO Attending Provider Dr. Boone Izquierdo DO Other Provider DIANE CALLAHAN Attending Provider BILLDIANE Parada Referring Provider BILLDIANE Parada Other Provider Bailee PITCH FLAKER-C, Jasmine Attending Provider Shaun HERNANDEZ, Dr. Campo Emergency Provider Caro DO, Dr. Alejandre Attending Provider Unav ailable Care Physician, No Primary Primary Care Provider Unavailable [facility], Dr. Delgado Attending Provider CorazonDr. Danny Barker DO Emergency Provider Dr. Luis Carlos Anderson [...] Provider Missael HERNANDEZ, Dr. Cotton Other Provider [phone] Ashely HERNANDEZ, Dr. Foote Other Provider [phone] Cassandra HERNANDEZ, Dr. Garvin Other Provider Yamil HERNANDEZ, Dr. Solis Other Provider Rojas HERNANDEZ, Dr. Enriquez Other Provider Seble HERNANDEZ, Dr. Hernández Other Provider Desmond HERNANDEZ, Dr. Snow [facility] Venegas MD, Dr. Whyte Other Provider [phone] Laurent HERNANDEZ, Dr. Raya Other Provider [...] DO Other Provider DIANE CALLAHAN Attending Provider BILLDIANE Parada Referring Provider BILLDIANE Parada Other Provider Bailee PITCH FLAKER-C, Jasmine Attending Provider Shaun HERNANDEZ, Dr. Campo [...] Dr. Scott Weston DO Other Provider Elie PITCH FLAKER-C, Yue Other Provider Caro DO, Dr. Alejandre Referring Provider Unav ailable Shila HERNANDEZ, Dr. Buster Barr Attending Provider Dr. Buster Fuchs MD Referring Provider Dr. Hill Acuña MD Attending Provider Unavaila priscila Powers MD, Dr. Vázquez Other Provider Unavailable Primary Care Provider Radha Carlson MD, Dr. Kevin Emergency Provider Nilsa NOYOLA, Dr. Roew Admit Provider Gio HERNANDEZ, Dr. Vázquez Admit Provider Tannhof PITCH FLAKER-C, Josy Primary Care Provider Tannhof PITCH FLAKER-C, Josy Attending Provider KATHIE POWERS Referring Unavailable DAY PRICE Admitting Unavailable YOUNG CRUZ Attending Unavailable Care Physician, No Primary Primary Care Provider [facility]available [facility] P[facility]-C, Josy Referring Provider Wei NOYOLA, Dr. Shook [...] Provider Dr. Will Lobo MD Other Provider [phone] Mina Xie MD Other Provider Dr. Betty Pruett MD Other Provider Dr. Gwendolyn Logan MD Other Provider Unavailabl karma Venegas MD, Dr. Whyte Other Provider Laurent HERNANDEZ, Dr. Raya Other Provider Angely HERNANDEZ, Dr. Silver Other Provider Dr. Mason Samano DO Other Provider Carmela HERNANDEZ, Dr. Tam Other Provider Mallorie HERNANDEZ, Dr. Kelly Other Provider Nuzhat NOYOLA, Dr. Cooper Other Provider Rosendo HERNANDEZ, Dr. Wesley Other Provider Dr. Young Richardson MD Other Provider Jeremi NOYOLA, Dr. Enriquez Emergency Provider Care Physician, No Primary Primary Care Provider Unavailable Erin HERNNADEZ, Dr. Rocha Other Provider Jen DO, Dr. Ureña Attending Provider Wei DO, Dr. Shook Attending Provider Lala NOYOLA, Dr. Pereyra Emergency Provider Shila HERNANDEZ, Dr. Buster Barr Admit Provider Teto HERNANDEZ, Dr. Osborn Attending Provider Zelalem HERNANDEZ, Dr. Coker Other Provider Trinidad HERNANDEZ, Dr. Gonzales Other Provider Oli HERNANDEZ, Dr. Pizarro Other Provider Dr. Bola Meraz DO Attending Provider Dr. Bola Meraz DO Other Provider Víctor HERNANDEZ, Dr. Hill Alcaraz Other Provider [phone] Ashli HERNANDEZ, Dr. Aguilar Other Provider [phone] Missael HERNANDEZ, Dr. Cotton Other Provider Ashely HERNANDEZ, Dr. Foote Other Provider Cassandra HERNANDEZ, Dr. Garvin Other Provider [phone] Dr. Will Lobo MD Other Provider [phone] Dr. Mina Xie MD Other Provider [phone] Seble HERNANDEZ, Dr. Hernández Other Provider Desmond HERNANDEZ, Dr. Snow [facility] Mosher MD, Dr. Douglas Other [...] Provider Dr. Breann Mendez DO Emergency Provider [phone] Dr. Yaritza Leo DO Admit Provider Dr. Yaritza Leo DO Attending Provider Care Physician, No Primary Primary Care Provider Unavailable de Kyle NOYOLA, Dr. Alejandre Admit Provider Unavail able de Kyle NOYOLA, Dr. Alejandre Other Provider Unavail able Abiodun [...] Unavailable Teto HERNANDEZ, Dr. Osborn Referring Provider Anni NOYOLA, Dr. Delgado Emergency Provider Presley HERNANDEZ, Dr. Marques Primary Care Provider Timbo NOYOLA, Dr. Shook Admit Provider Dr. Boone Izquierdo DO Attending Provider Timbo NOYOLA, Dr. Shook Other Provider Ahmet NOYOLA, Dr. Vigil Attending Provider Timbo NOYOLA, Dr. Shook Attending Provider Jeremi NOYOLA, Dr. Enriquez Referring Provider Dr. Luis Carlos Anderson DO Emergency Provider Jeremi NOYOLA, Dr. Enriquez Other Provider John PITCH FLAKER-C, Mar Attending Provider Presley HERNANDEZ, Dr. Marques Attending Provider Presley HERNANDEZ, Dr. Marques Referring Provider PHYSICIAN, NONE Attending Unavailable PHYSICIAN, NONE Primary Care Unavailable Jen NOYOLA, Dr. Ureña Other Provider Gio HERNANDEZ, Dr. Vázquez Other Provider Domenico HERNANDEZ, Dr. Alejandre Attending Provider Unavaila priscila Masterson MD, Dr. Coker Other Provider Trinidad HERNANDEZ, Dr. Gonzales Other Provider Oli HERNANDEZ, Dr. Pizarro Other Provider Dr. Bola Meraz DO Attending Provider Dr. Bola Meraz DO Other Provider Víctor HERNANDEZ, Dr. Hill Alcaraz Other Provider Ashli HERNANDEZ, Dr. Aguilar Other Provider [phone] Missael HERNANDEZ, Dr. Cotton Other Provider [phone] Ashely HERNANDEZ, Dr. Foote Other Provider Cassandra HERNANDEZ, Dr. Garvin Other Provider Yamil HERNANDEZ, Dr. Solis Other Provider Rojas HERNANDEZ, Dr. Enriquez Other Provider Seble HERNANDEZ, Dr. Hernández Other Provider Desmond HERNANDEZ, Dr. Snow Other Provider Unavailabl karma Mosher MD, Dr. Douglas Other Provider [phone] hTeo HERNANDEZ, Dr. Whyte Other Provider Laurent HERNANDEZ, Dr. Raya Other Provider Angely HERNANDEZ, Dr. Silver Other Provider Jazmyne NOYOLA, Dr. Cuevas Other Provider Carmela HERNANEDZ, Dr. Tam Other Provider [phone] Mallorie HERNANDEZ, Dr. Kelly Other Provider Nuzhat NOYOLA, Dr. Cooper Other Provider Rosendo HERNANDEZ, Dr. Wesley Other Provider Dylan HERNANDEZ, Dr. Colon Other Provider Dr. Luis Carlos Anderson DO Attending Provider Dr. Niranjan Li DO Attending Provider Julita Glover Attending Provider Unavailab maría Elias NP-C, Josy Other Provider Dr. Rick Carlin DO Attending Provider Dr. Rick Carlin DO Other Provider DIANE CALLAHAN Attending Provider DIANE CALLAHAN Referring Provider [phone] Roby Balderas MD Attending Provider Yaritza Leo Admitting Unavailable Josy Elias Primary Care Unavailable Yaritza Leo Consulting Unavailable Anurag Irene Attending Unavailable Jefferson Malave Consulting Unavailable Aleyda Bautista Consulting Unavailable Judy Tovara Edyta Consulting Unavailable Teto, Anurag Consulting Unavailable Jefferson Malave Attending Unavailable Teto, Anurag Referring Unavailable Hill Caro Consulting Unavailable Hill Caro Admitting Unavailable Hill Acuña Attending Unavailable Care Physician, No Primary Primary Care Unava ilable Foster Rascon Consulting Unavailable Buster Fuchs Consulting Unavailable Hill Acuña Consulting Unavailable Kathie Powers Attending Unavailable Kathie Powers Consulting Unavailable Jae Ash Admitting Unavailable Jae Ash Consulting Unavailable Anurag Irene Attending Unavailable Care Physician, No Primary Primary Care Unava ilable Yaritza Leo Attending Unavailable Maria Guadalupe Shore Referring Unavailable Maria Guadalupe Shore Admitting Unavailable Niranjan Li Attending Unavailable John Paul Masterson Consulting Unavailable Care Physician, No Primary Primary Care Unava ilable Christian Abdi Consulting Unavailable Juarez Baird Consulting Unavailable Bola Meraz Consulting Unavailable Hill Renee Consulting Unavailable Jeff Cornelius Consulting Unavailable Yury Canas Consulting Unavailable Dary Lund Consulting UnavailBharathi East Consulting Unavailable Will Lobo Consulting Unavailable Mina Xie Consulting Unavailable Betty Pruett Consulting Unavailable AlGwendolyn veliz Consulting Unavailable Theo, Pato Consulting Unavailable Irukulla Elver Consulting Unavailable Angely, Nadeem Consulting Unavailable Dhesi, Mason Consulting Unavailable Anel Casey Consulting Unavailable Robin Nobles Consulting Unavailable Kenneth Noland Consulting Unavailable Lupillo Robbins Consulting Unavailable Young Richardson Consulting Unavailable Maria Guadalupe Shore Consulting Unavailable Josefina Khan Consulting Unavailable Rick Carlin Consulting Unavailable Cielo Tovar Attending Unavailable Jae Ash Admitting Unavailable Jae Ash Consulting Unavailable Teto Anurag Attending Unavailable Care Physician, No Primary Primary Care Unava ilable Teto, Anurag Consulting Unavailable Jae Ash Admitting Unavailable Jae Ash Consulting Unavailable Care Physician, No Primary Primary Care Unava ilable Teto Anurag Attending Unavailable Teto, Anurag Consulting Unavailable Jae Ash Attending Unavailable Buster Fuchs Consulting Unavailable Buster Fuchs F Admitting Unavailable Buster Fuchs Attending Unavailable Curt, Josy Primary Care Unavailable Hill Acuña Attending Unavailable Hill Acuña Consulting Unavailable Hill Acuña Attending Unavailable Care Physician, No Primary Primary Care Unava ilable Powers, Kathie Consulting Unavailable Powers, Kathie Admitting Unavailable Karena, Thai Consulting Unavailable Domenico, Hill Consulting Unavailable Gio, Kathie Attending Unavailable Care Physician, No Primary Primary Care Unava ilable Hill Acuña Attending Unavailable Powers, Kathie Admitting Unavailable Powers, Kathie Consulting Unavailable Karena, Thai Consulting Unavailable Powers, Kathie Admitting Unavailable Tannhof, Josy Primary Care Unavailable Gio, Kathie Consulting Unavailable Rick Carlin Attending Unavailable Boone Izquierdo Consulting Unavailable Boone Izquierdo Admitting Unavailable Yaritza Leo Attending Unavailable Presley, Jerald Primary Care Unavailable Mina Blood Attending Unavailable Tannhof, Josy Primary Care Unavailable Mina Blood Attending Unavailable Jerald Sherwood Primary Care Unavailable MICHAEL OHARA Referring Unavailable MICHAEL OHARA Attending Unavailable Care Physician, No Primary Primary Care Unava ilable Chinedu Eliasley Referring Unavailable Tannhof, Josy Primary Care Unavailable Tannhof, Josy Consulting Unavailable Julita Glover Attending Unavailable MICHAEL OHARA Attending Unavailable LEV, MICHAEL Referring Unavailable Care Physician, No Primary Primary Care Unava ilable Yaritza Leo Consulting Unavailable Yaritza Leo Admitting Unavailable Tannhof, Josy Primary Care Unavailable Teto Anurag Attending Unavailable Jefferson Malave Consulting Unavailable Aleyda Bautista Consulting Unavailable Cielo Tovar Consulting Unavailable White, Maria Guadalupe L Admitting Unavailable White, Maria Guadalupe L Referring Unavailable White Maria Guadalupe L Consulting Unavailable Care Physician, No Primary Primary Care Unava ilable Rick Carlin Attending Unavailable Josefina Khan Consulting Unavailable Roby Balderas Referring Unavailable Roby Balderas Attending Unavailable Tannhof, Josy Primary Care Unavailable Mina Blood Referring Unavailable Mina Blood Attending Unavailable Presley, Jerald Primary Care Unavailable Presley, Jerald Attending Unavailable Presley, Jerald Primary Care Unavailable Presley, Jerald Referring Unavailable BALTHERESA, MICHAEL Referring Unavailable LEV, MICHAEL Attending Unavailable [facility]Mer[facility] Hospital[facility] Primary Care Unavailable [facility] Primary Care Unavailable Boone Carvajal Attending Unavailable Kathie Powers Attending Unavailable Hill Caro Consulting Unavailable Hill Caro Admitting Unavailable Care Physician, No Primary Primary Care Unava ilable Foster Rascon Consulting Unavailable Buster Fuchs Consulting Unavailable Hill Acuña Consulting Unavailable Hill Herrmann Consulting Unavailable Blair Cage Consulting Unavailable Thiago Wray Consulting Unavailable Gabbi Hughes Consulting Unavailable Thai Godfrey Consulting Unavailable Michael Garza Consulting Unavailable Zachariah Glover Consulting Unavailable Scott Weston Consulting Unavailable Elie ROSA, Yue Consulting Unavailable Boone Izquierdo Attending Unavailable Hill Caro Consulting Unavailable Hill Caro Admitting Unavailable Care Physician, No Primary Primary Care Unava ilable Anurag Irene Consulting Unavailable Jae Ash Consulting Unavailable Thai Thurston Consulting Unavailable Josefina Khan Consulting Unavailable Foster Rascon Consulting Unavailable Bola Meraz Attending Unavailable John Paul Mastersno Consulting Unavailable Hill Caro Referring Unavailable Christian Abdi Consulting Unavailable Juarez Baird Consulting Unavailable Bola Meraz Consulting Unavailable Hill Renee Consulting Unavailable Jeff Cornelius Consulting Unavailable Yury Canas Consulting Unavailable Dary Lund Consulting UnavailBharathi East Consulting Unavailable Will Lobo Consulting Unavailable Mina Xie Consulting Unavailable Betty Pruett Consulting Unavailable Gwendolyn Logan Consulting Unavailable Stella Mosher Consulting Unavailable Ivonne Venegastam Consulting Unavailable Elver Mancilla Consulting Unavailable Nadeem Au Consulting Unavailable Mason Samano Consulting Unavailable Anel Casey Consulting Unavailable Robin Nobles Consulting Unavailable Kenneth Noland Consulting Unavailable Lupillo Robbins Consulting Unavailable Young Richardson Consulting Unavailable Buster Fuchs Consulting Unavailable Buster Fuchs Admitting Unavailable Josy Elias Primary Care Unavailable Hill Acuña Attending Unavailable Curt Josy Primary Care Unavailable Josy Elias Attending Unavailable Pastorcoltenantoinette Josy Referring Unavailable Pastorhoantoinette, Josy Primary Care Unavailable Josy Elias Attending Unavailable Hill Herrmann Consulting Unavailable Blair Cage Consulting Unavailable Thiago Wray Consulting Unavailable Gabbi Hughes Consulting Unavailable Thai Godfrey Consulting Unavailable Michael Garza Consulting Unavailable Zachariah Glover Consulting Unavailable Scott Weston Consulting Unavailable Elie PITCH FLAKER, Yue Consulting Unavailable Buster Fuchs Attending Unavailable Niranjan Li Attending Unavailable Buster Fuchs Referring Unavailable Boone Izquierdo Consulting Unavailable Boone Izquierdo Admitting Unavailable Sherwood, Jerald Primary Care Unavailable Yaritza Leo Attending Unavailable Yaritza Leo Consulting Unavailable Roby Balderas Attending Unavailable Curt, Josy Primary Care Unavailable Camilleantoinette Josy Referring Unavailable Cielo Tovar Referring Unavailable Bola Meraz Attending Unavailable Rick Carlin Attending Unavailable Care Physician, No Primary Primary Care Unava ilable Danny Hutton Attending Unavailabl karma Obrienantoinette Josy Primary Care Unavailable Alber Dunn Attending Unavailable Boone Izquierdo Attending Unavailable Sherwood, Jerald Primary Care Unavailable Sherwood, Jerald Primary Care Unavailable Luis Carlos Anderson Attending Unavailable John Paul Masterson Consulting Unavailable Christian Abdi Consulting Unavailable Juarez Baird Consulting Unavailable Bola Meraz Consulting Unavailable Hill Renee Consulting Unavailable Jeff Cornelius Consulting Unavailable Yury Canas Consulting Unavailable Dary Lund Consulting UnavailBharathi East Consulting Unavailable Will Lobo Consulting Unavailable Mina Xie Consulting Unavailable Betty Pruett Consulting Unavailable Gwendolyn Logan Consulting Unavailable Mosher, Stella Consulting Unavailable Theo, Pato Consulting Unavailable Irliset Elver Consulting Unavailable Angely, Nadeem Consulting Unavailable DhePuneet fischerdeep Consulting Unavailable Anel Casey Consulting Unavailable Robin Nobles Consulting Unavailable Kenneth Noland Consulting Unavailable Lupillo Robbins Consulting Unavailable Young Richardson Consulting Unavailable Hill Caro Attending Unavailable Hill Caro Admitting Unavailable Care Physician, No Primary Primary Care Unava ilable Foster Rascon Consulting Unavailable Hill Caro Consulting Unavailable Teto, Anurag Attending Unavailable John Paul Masterson Consulting Unavailable Christian Abdi Consulting Unavailable Juarez Baird Consulting Unavailable Bola Meraz Consulting Unavailable Hill Renee Consulting Unavailable Jeff Cornelius Consulting Unavailable Yury Canas Consulting Unavailable Dary Lund Consulting UnavailBharathi East Consulting Unavailable Lobo, Will Consulting Unavailable Mina Xie Consulting Unavailable Betty Pruett Consulting Unavailable Gwendolyn Logan Consulting Unavailable MosherStella sims Consulting Unavailable Theo, Pato Consulting Unavailable Elver Mancilla Consulting Unavailable Angely, Nadeem Consulting Unavailable Dheaaliyah, Mason Consulting Unavailable Anel Casey Consulting Unavailable Robin Nobles Consulting Unavailable Kenneth Noland Consulting Unavailable Lupillo Robbins Consulting Unavailable Young Richardson Consulting Unavailable Thai Thurston Consulting Unavailable Josefina Khan Consulting Unavailable Teto, Anurag Consulting Unavailable Bola Meraz Attending Unavailable Teto, Anurag Referring Unavailable Hill Caro Attending Unavailable Roby Balderas Consulting Unavailable Roby Balderas Attending Unavailable Tannhof, Josy Primary Care Unavailable Roby Balderas Referring Unavailable Tannhof, Josy Primary Care Unavailable Tannhof, Josy Referring Unavailable Teto, Anurag Attending Unavailable Tannhof, Josy Primary Care Unavailable Jerald Sherwood Referring Unavailable Nelida Harris Attending Unavailable Jae Ash Consulting Unavailable Jae Ash Admitting Unavailable Jae Ash Attending Unavailable Jerald Sherwood Primary Care Unavailable Teto, Anurag Attending Unavailable Jen, Niranjan Consulting Unavailable Teto, Anurag Consulting Unavailable FriendNiranjan Attending Unavailable Tannhof, Josy Primary Care Unavailable Teto, Anurag Referring Unavailable Kathie Powers Attending Unavailable Tannhof, Josy Primary Care Unavailable Niranjan Li Attending Unavailable Kathie Powers Admitting Unavailable Kathie Powers Consulting Unavailable Tannhof, Josy Primary Care Unavailable Rick Carlin Referring Unavailable Rick Carlin Attending Unavailable Rick Carlin Consulting Unavailable Jae Ash Attending Unavailable Jae Ash Consulting Unavailable Boone Izquierdo Attending Unavailable Boone Izquierdo Consulting Unavailable Maria Guadalupe Shore Attending Unavailable Bola Meraz Attending Unavailable MICHAEL OHARA Referring Unavailable MICHAEL OHARA Consulting Unavailable Jasmine Morocho NP Attending Unavailable Care Physician, No Primary Primary Care Unava ilable Mina Blood Consulting Unavailable Jerald Sherwood Primary Care Unavailable Mina Blood Referring Unavailable Mar Lopez Attending Unavailable Jae Ash Consulting Unavailable Josy Elias Primary Care Unavailable Jae Ash Admitting Unavailable Anurag Irene Attending Unavailable Friend, Niranjan Consulting Unavailable Medications Current Medications Medication Drug Class(es) Dates Sig (Normalized) Sig (Original) acetaminophen 500 mg oral tablet (20 sources) Start: 09-14-2024 End: 10-28-2024 Acetaminophen 50 0 mg cap Take by mouth. Active carvedilol 3.125 mg oral tablet (2 sources) alpha-Adrenergic Tracey, beta-Adrenergic Tracey Start: 02-17-2025 ciprofloxacin 500 mg oral tablet (2 sources) Quinolone Antimicrobial Start: 02-27-2025 take 1 tablet by mouth once delmi y ciprofloxacin (Cipro) 500 mg tablet Take 1 tablet (500 mg) by mouth once daily. For prophylaxis Active cyclobenzaprine hydrochlorid e 10 mg oral tablet (20 sources) Muscle Relaxant Start: 01-02-2025 Start: 11-21-2024 End: 12-30-2024 Start: 09-14-2024 End: 11-21-2024 Start: 08-29-2024 End: 09-02-2024 Start: 08-29-2024 End: 09-02-2024 take 1 tablet by mouth at bedtime Cyclobenzaprine 10 mg tablet Discontinued 10 mg PO AT BEDTIME August 29, 2024 1:00am September 02, 2024 3:29pm ferrous sulfate 325 mg oral tablet (1 source) take 1 tablet by mouth once daily ferrous sulfate tablet Take 1 tablet (325 mg) by mouth once daily. Active furosemide 40 mg oral tablet (20 sources) [...] 11/03/2024 Active take 2 tablets by mo [facility] once daily furosemide (LASIX) 20 mg tablet Take 40 mg by mouth once daily. Suspended 24 hr metFORMIN hydrochlorid e 500 mg extended release oral tablet (19 sources) Biguanide Start: 11-21-2024 Start: 11-18-2024 take [...] 7 days. 20 tablet 11/18/2024 11/25/2024 Active potassium chloride 20 meq extended release oral tablet (2 sources) Start: 03-10-2025 spironolactone 100 mg oral tablet (20 sources) Aldosterone Antagonist Start: 01-21-2025 End: [...] once daily. 30 tablet 3 11/18/2024 Active (20 sources) Start: 03-10-2025 Start: 02-27-2025 End: 03-10-2025 Start: 01-31-2025 End: 02-27-2025 Start: 01-31-2025 Start: 01-31-2025 Start: 01-21-2025 End: 01-31-2025 Start: 01-21-2025 Start: 01-05-2025 End: 01-31-2025 Start: 01-05-2025 End: 01-21-2025 Start: 01-05-2025 Start: 01-02-2025 End: 03-10-2025 Start: 01-02-2025 Start: 12-02-2024 End: 01-28-2025 Start: 12-02-2024 End: 01-21-2025 Start: 12-02-2024 Start: 11-21-2024 End: 03-10-2025 Start: 11-21-2024 End: 12-30-2024 Start: 11-21-2024 Start: 09-02-2024 End: 09-14-2024 Completed/Discontinued Medications Medication Drug Class(es) Dates Sig (Normalized) Sig (Original) acetaminophen 325 mg / HYDROcodone bitartrate 5 mg oral tablet (19 sources) Opioid Agonist Start: 09-02-2024 End: 09-14-2024 Start: 09-02-2024 End: 09-14-2024 Hydrocodone-Acetaminophen 5- 325 mg Tablet Discontinued 1 {tbl} PO EVERY 4 HOURS NEEDED as needed for Pain Score 1-10 30 September 02, 2024 September 14, 2024 6:37pm apixaban 5 mg oral tablet (16 sources) Factor Xa Inhibitor Start: 11-21-2024 End: 11-25-2024 ascorbic acid 500 mg oral ta blet (15 sources) Vitamin C Start: 11-25-2024 End: 03-10-2025 atorvastatin 40 mg oral tabl et (16 sources) HMG-CoA Reductase Inhibitor Start: 11-21-2024 End: 03-10-2025 calcium carbonate 1250 mg / cholecalciferol 200 unt oral tablet (20 sources) Vitamin D Start: 10-28-2024 End: 03-10-2025 cephalexin 500 mg oral capsu le (12 sources) Cephalosporin Antibacterial Start: 12-30-2024 End: 01-05-2025 doxycycline monohydrate 100 mg oral capsule (19 sources) Tetracycline-class Drug Start: 09-14-2024 End: 10-28-2024 0.8 ml enoxaparin sodium 150 mg/ml prefilled syringe (19 sources) Low Molecular Weight Heparin Start: 11-21-2024 End: 12-30-2024 Start: 11-18-2024 inject 100 mg by sub cutaneous injection every twelve hours enoxaparin (LOVENOX) 120 mg/0.8 mL injection Inject 99 mg subcutaneously every 12 hours. Inject 0.7 mL subcutaneously every 12 hours 48 mL 2 11/18/2024 Active fluconazole 200 mg oral tabl et (18 sources) Azole Antifungal Start: 11-18-2024 End: 11-27-2024 folic acid 1 mg oral tablet (20 sources) Start: 10-28-2024 End: 03-10-2025 Start: 08-29-2024 End: 09-02-2024 Start: 08-29-2024 End: 09-02-2024 Folic Acid 1 mg tablet Disco ntinued 1000 ug PO DAILY August 29, 2024 1:00am September 02, 2024 3:44pm ibuprofen 800 mg oral tablet (20 sources) Nonsteroidal Anti-inflammatory Drug Start: 10-28-2024 End: 11-25-2024 take 1 tablet by bipin th every eight hours as needed ibuprofen (MOTRIN) 800 mg tablet Take 80 0 mg by mouth every 8 hours as needed for fever (specify temp.) or pain. Suspended imiquimod 50 mg/ml topical cream (15 sources) Start: 12-02-2024 End: 12-30-2024 Insulin Glargine-Yfgn 100 unit/mL (3 mL) Insulin Pen (2 sources) Start: 09-02-2024 End: 09-14-2024 Insulin Glargine-Yfgn 100 unit/mL (3 mL) Insulin Pen Discontinued 10 U SC TWICE A DAY 5 September 02 2025 1:00am September 14, 2024 6:38pm 3 ml [...] (20 sources) Osmotic Laxative Start: 11-21-2024 End: 02-27-2025 Start: 11-18-2024 take 60 mL by mouth [...] MD. Active linezolid 600 mg oral tablet (6 sources) Oxazolidinone Antibacterial Start: 01-31-2025 End: 02-16-2025 magnesium oxide 400 mg oral tablet (16 sources) Start: 11-21-2024 End: 03-10-2025 midodrine hydrochloride 10 m g oral tablet (20 sources) alpha-Adrenergic Agonist Start: 11-25-2024 End: 02-16-2025 Start: 09-02-2024 End: 10-28-2024 [facility] daily midodrine (Proamatine) 5 mg tablet Take 1 tablet (5 mg) by mouth 3 times daily (morning, midday, late afternoon). Active 1 ml morphine sulfate 4 mg/ml prefilled syringe (2 sources) Opioid Agonist Start: 10-04-2024 End: 10-04-2024 4 mg, intravenous, Once, On Fri10/04/24 at 1525, For 1 dose nadolol 20 mg oral tablet (10 sources) beta-Adrenergic Tracey Start: 01-02-2025 End: 01-21-2025 omeprazole 20 mg delayed release oral capsule (7 sources) Proton Pump Inhibitor Start: 01-28-2025 End: [...] minutes. oxyCODONE hydrochloride 5 mg oral tablet (20 sources) Opioid Agonist Start: 01-21-2025 End: 02-16-2025 Start: 10-04-2024 End: 10-04-2024 take 5 mg by mouth once as needed for pain 5 mg, oral, Once, On Fri10/04/24 at 1905, For 1 dose, If ordered PRN for pain, nurse is permitted to administer this medication for higher pain scores based on patient preference? Yes take 1 capsule by mo [facility] every six hours as needed oxyCODONE [...] 40 mg by mouth once daily. Suspended rifAXIMin 550 mg oral tablet (20 sources) Rifamycin Antibacterial Start: 09-02-2024 End: 03-10-2025 sodium bicarbonate 650 mg or al tablet (18 sources) Start: 11-21-2024 End: 03-10-2025 Start: 11-18-2024 End: 12-18-2024 take 1 tablet by mouth twice daily sodium bicarbonate 650 mg tablet 1 tablet by ORAL/FEEDING TUBE route two times a day. 60 tablet 11/18/2024 12/18/2024 Active vancomycin 125 mg oral capsu le (15 sources) Glycopeptide Antibacterial Start: 12-02-2024 End: 01-05-2025 zinc sulfate 220 mg oral tab let (19 sources) Start: 11-21-2024 End: 03-10-2025 Start: 11-18-2024 take 1 capsule by mo uth once daily zinc sulfate 220 mg (50 mg zinc) capsule Take 1 capsule by mouth once daily. 30 capsule 3 11/18/2024 Active Problems Active Problems Problem Classification Problem Date [...] 11-11-2024 11-11-2024 Episodic Deficiency and other anemia (2 sources) Anemia, unspecified; Translations: [Anemia, unspecified type] Onset: 11-11-2024 Episodic Deficiency and other anemia (6 sources) Chronic anemia; Translations: [Anemia, unspecified] 02-16-2025 Episodic Diabetes mellitus with complications (1 source) Type 2 diabetes mellitus with hyperglycemia; Translations: [Type 2 diabetes mellitus with hyperglycemia] Onset: 03-15-2025 Chronic Diabetes mellitus without complication (17 sources) Insulin treated type 2 diabetes mellitus; Translations: [Type 2 diabetes mellitus without complications] 12-30-2024 Chronic Diabetes mellitus without complication (13 sources) Hyperglycemia; Translations: [Hyperglycemia, unspecified] 12-30-2024 Episodic [...] Onset: 09-17-2024 09-23-2024 Chronic Nonspecific chest pain (13 sources) Chest pain; Translations: [Chest pain, unspecified] [...] and ureter, unspecified] 09-23-2024 Episodic Other fractures (18 sources) Compression fracture of thoracic spine; Translations: [...] Onset: 11-11-2024 10-04-2024 Chronic Other liver diseases (3 sources) Other cirrhosis of liver; Translations: [Other [...] sources) Hepatic encephalopathy; Translations: [Hepatic encephalopathy] Onset: 03-23-2025 09-10-2024 Episodic Other liver diseases (7 sources) Elevated liver enzymes level; Translations: [Abnormal levels of other serum enzymes] 02-16-2025 Episodic Other liver diseases (4 sources) Decompensated cirrhosis of liver; Translations: [Hepatic failure, unspecified without coma] 02-16-2025 Episodic Other liver diseases (2 sources) Abnormal levels of other serum enzymes; Translations: [Abnormal levels of other serum enzymes] Onset: 03-23-2025 Episodic Other liver diseases (1 source) Hepatic failure, unspecified without coma; Translations: [Hepatic failure, unspecified without coma] Onset: 03-16-2025 Episodic Other nervous system disorders (20 sources) [...] Chronic Other nutritional; endocrine; and metabolic disorders (7 sources) Hyperammonemia; Translations: [Disorder of urea cycle metabolism, unspecified] 02-16-2025 Chronic Other nutritional; endocrine; and metabolic disorders (2 sources) Disorder of urea cycle metabolism, unspecified; Translations: [Disorder of urea cycle metabolism, unspecified] Onset: 03-23-2025 Chronic Other nutritional; endocrine; and metabolic disorders (1 source) Obesity, unspecified; Translations: [Obesity, unspecified] Onset: 09-17-2024 Chronic Other nutritional; endocrine; and metabolic disorders (6 sources) H/O: diabetes mellitus; Translations: [Personal history of other endocrine, nutritional and metabolic disease] 02-16-2025 Episodic Other nutritional; endocrine; and metabolic disorders (1 source) History of diabetes mellitus type 2; Translations: [Personal history of other endocrine, nutritional and metabolic disease] 03-11-2025 Episodic Other screening for suspected conditions (not [...] organism] Onset: 11-11-2024 Resolved: 11-18-2024 10-29-2024 Episodic Spondylosis; intervertebral disc disorders; other back problems (20 sources) Chronic back pain ; Translations: [Dorsalgia, unspecified] Onset: 09-10-2024 09-23-2024 Episodic Superficial injury; contusion (19 sources) Contusion of lower back; Translations: [Contusion [...] 11-11-2024 Episodic Skin and subcutaneous tissue infections (20 sources) Cellulitis of abdominal wall ; Translations: [Cellulitis of abdominal wall] Onset: 12-04-2024 12-03-2024 Episodic Results Test Name Value Interpretation Reference Range Facility Bedside Glucoseon 03-31-2025 FINGERSTICK GLU 111 mg/dL High 74-106 [facility] Comment on above: Result Comment: BRISA MOROCHO OF PATIENT CARE PER NURSING PROTOCOL Performed By: #### L 501.080 ####[facility] [address] [place], [place], [address] Discharge Instructionon 03-05 Discharge Instruction Normal [facility] MR/POSTOP.ANEon 03-30-2025 MR/POSTOP.ANE Normal [facility] MR/OXIDIAUA3hs 03-30-2025 MR/POSTOPAN2 Normal [facility] Operative Reporton Operative Report Normal [facility] Bedside Glucoseon 03-29-2025 FINGERSTICK GLU 147 mg/dL High 74-106 [facility] Comment on above: Result Comment: BRISA GEMGUNJAN OF PATIENT CARE PER NURSING PROTOCOL Performed By: #### L 501.080 ####[facility] [address] [place], [address] Absolute lymphocyte countOrd ered By: Day Bird on 03-11-2025 Lymphocytes Auto (Unsp spec) [#/Vol] 1.03 10*3/uL 0.83-4.51 [facility] Anion gap in Serum or Plasma Ordered By: Day Bird on 03-11-2025 Anion gap [Moles/Vol] 11 mmol/L 5-15 [facility] Automated lymphocyte count a s percentage of total leukocytesOrdered By: Day Bird on 03-11-2025 Lymphocytes/100 WBC Auto (Unsp spec) 12.6 % Low 19-41 [facility] BUN/creatinine ratioOrdered By: Day Bird on 03-11-2025 Urea nitrogen/Creatinine [Mass ratio] 12.0 mg/mg 10- [facility] Basic Metabolic Profile (BMP )on 03-11-2025 BUN/CRE 12.0 RATIO Normal 10- [facility] Comment on above: Performed By: #### L 500.2500, L100.0100, L501.6901 ####[facility] [address] [place], [address] Calcium [Mass/Vol] 8.0 mg/dL Normal 7.6-11.0 [facility] Comment on above: Performed By: #### L 500.2500, L100.0100, L501.6901 ####[facility] [address] [place], [address] Chloride [Moles/Vol] 96 mmol/L Low 98-108 [facility] Comment on above: Performed By: #### L 500.2500, L100.0100, L501.6901 ####[facility] [address] [place], [address] CO2 [Moles/Vol] 21.4 mmol/L Normal 21.0-32.0 [facility] Comment on above: Performed By: #### L 500.2500, L100.0100, L501.6901 ####[facility] [address] [place], [address] Creatinine [Mass/Vol] 1.30 mg/dL High 0.70-1.20 [facility] Comment on above: Performed By: #### L 500.2500, L100.0100, L501.6901 ####[facility] [address] [place], [address] ECRCL 69.27 ml/min Normal 50-250 [facility] Comment on above: Performed By: #### L 500.2500, L100.0100, L501.6901 ####[facility] [address] [place], [address] GAP 11 Normal 5-15 [facility] Comment on above: Performed By: #### L 500.2500, L100.0100, L501.6901 ####[facility] [address] [place], [address] GFR/1.73 sq M.predicted among non-blacks MDRD (S/P/Bld) [Vol rate/Area] 64 mL/min/{1.73_m2} Normal >60 [facility] Comment on above: Result Comment: mL/m in/1.73m2 CKD-EPI Creatinine Equation (2020) Performed By: #### L 500.2500, L100.0100, L501.6901 ####[facility] [address] [place], [address] Glucose [Mass/Vol] 495 mg/dL Invalid Interpretation Code 70-99 [facility] Comment on above: Result Comment: Crit ical Result(s) Called DEE ROCA at: 1812 by:LAURIE??Results read back by same. Performed By: #### L 500.2500, L100.0100, L501.6901 ####[facility] [address] [place], [address] Potassium [Moles/Vol] 2.8 mmol/L Low 3.3-5.1 [facility] Comment on above: Performed By: #### L 500.2500, L100.0100, L501.6901 ####[facility] [address] [place], [address] Sodium [Moles/Vol] 128 mmol/L Low 133-145 [facility] Comment on above: Performed By: #### L 500.2500, L100.0100, L501.6901 ####[facility] [address] [place], [address] Urea nitrogen [Mass/Vol] 16 mg/dL Normal 4-19 [facility] Comment on above: Performed By: #### L 500.2500, L100.0100, L501.6901 ####[facility] [address] [place], [address] Basophil percentageOrdered B y: Day Bird on 03-11-2025 Basophils/100 WBC (Bld) 0.6 % 0-1 [facility] Bedside Glucoseon 03-11-2025 FINGERSTICK GLU 412 mg/dL High 74-106 [facility] Comment on above: Result Comment: BRISA GEMENT OF PATIENT CARE PER NURSING PROTOCOL Performed By: #### L 501.080 ####[facility] [address] [place], [address] FINGERSTICK GLU 494 mg/dL Invalid Interpretation Code 74-106 [facility] Comment on above: Result Comment: Dr Amalia webster FollowedMANAGEMENT OF PATIENT CARE PER NURSING PROTOCOL Performed By: #### L 501.080 ####[facility] [address] [place], [address] FINGERSTICK GLU > 500 Invalid Interpretation Code 74-106 [facility] Comment on above: Result Comment: Dr Amalia webster FollowedMANAGEMENT OF PATIENT CARE PER NURSING PROTOCOL Performed By: #### L 501.080 ####[facility] [address] [place], [address] Beta-Hydroxbytyrateon 2024 BETA-HYDROXYBUT 0.0 mmol/L Normal 0.0-0.3 [facility] Comment on above: Performed By: #### L 500.2500, L100.0100, L501.6901 ####[facility] [address] [place], [address] Beta-hydroxybutyrateOrdered By: Day Bird on 03-11-2025 Beta hydroxybutyrate [Mass/Vol] 0.0 mmol/L 0.0-0.3 [facility] Blood manual differential co mment interpretation (narrative result)Ordered By: Day Bird on 03-11-2025 Manual differential comment Marco Antonio (Bld) [Interp] SCANNED [facility] CBC W/Diff, Automatedon 080 PLT EST MOD DEC Normal ADEQ [facility] Comment on above: Performed By: #### L 500.2500, L100.0100, L501.6901 ####[facility] [address] [place], [address] SMEAR COMMENT SCANNED Normal [facility] Comment on above: Performed By: #### L 500.2500, L100.0100, L501.6901 ####[facility] [address] [place], [address] Platelet mean volume (Bld) [Entitic vol] 12.1 fL High 6.2-12.0 [facility] Comment on above: Performed By: #### L 500.2500, L100.0100, L501.6901 ####[facility] [address] [place], [address] Platelets (Bld) [#/Vol] 94 10*3/uL Low 150-450 [facility] Comment on above: Performed By: #### L 500.2500, L100.0100, L501.6901 ####[facility] [address] [place], [address] Carbon dioxide, total [Moles /volume] in Central venous bloodOrdered By: Day Bird on 03-11-2025 CO2 [Moles/Vol] 21.4 mmol/L 21.0-32.0 [facility] Chloride assayOrdered By: Sarah Bird on 03-11-2025 Chloride [Moles/Vol] 96 mmol/L Low 98-108 [facility] Emergency Department Summary on 03-11-2025 Emergency Department Summary Normal [facility] Eosinophil percentageOrdered By: Day Bird on 03-11-2025 Eosinophils/100 WBC (Bld) 5.2 % High 0-5 [facility] Erythrocyte distribution wid th ratioOrdered By: Day Bird on 03-11-2025 Erythrocyte distribution width (RBC) [Ratio] 18.8 % High 11.6-14.6 [facility] Erythrocyte distribution wid th standard deviationOrdered By: Day Bird on 03-11-2025 Erythrocyte distribution width (RBC) [Ratio] 63.4 fl High 35.1-43.9 [facility] Glomerular filtration rate ( GFR) estimation/1.73 sq m using serum, plasma, or whole bOrdered By: Day Bird on 03-11-2025 GFR/1.73 sq M.predicted among non-blacks MDRD (S/P/Bld) [Vol rate/Area] 64 mL/min/{1.73_m2} >60 [facility] Gl[facility] deOrdered By: Alber Dunn on 03-11-2025 Glucose [Mass/Vol] 412 mg/dL High 74-106 [facility] Hematocrit Auto (Bld) [Volum e fraction]Ordered By: Day Bird on 03-11-2025 Hematocrit (Bld) [Volume fraction] 23.7 % Low 40-54 [facility] Hemoglobin measurementOrdere d By: Day Bird on 03-11-2025 Hemoglobin (Bld) [Mass/Vol] 8.0 g/dL Low 13.0-16.5 [facility] Immature granulocytes/100 WB C Auto (Bld)Ordered By: Day Bird on 03-11-2025 Immature granulocytes/100 WBC (Bld) 0.500 % 0.0-0.9 [facility] MCV (mean corpuscular volume ) determinationOrdered By: Day Bird on 03-11-2025 MCV (RBC) [Entitic vol] 92.6 fL 80-94 [facility] Mean corpuscular hemoglobin (MCH) determinationOrdered By: Day Bird on 03-11-2025 MCH (RBC) [Entitic mass] 31.3 pg 27.0-32.0 [facility] Monocyte percentageOrdered B y: Day Bird on 03-11-2025 Monocytes/100 WBC (Bld) 10.9 % High 0-10 [facility] Neutrophil percentageOrdered By: Day Bird on 03-11-2025 Neutrophils/100 WBC (Bld) 70.2 % High 47-70 [facility] Platelet countOrdered By: Sarah Bird on 03-11-2025 Platelets (Bld) [#/Vol] 94 10*3/uL Low 150-450 [facility] Platelet estimateOrdered By: Day Bird on 03-11-2025 Platelets LM Ql (Bld) MOD DEC ADEQ [facility] Potassium measurement (mass/ volume)Ordered By: Day Bird on 03-11-2025 Potassium (Unsp spec) [Mass/Vol] 2.8 mmol/L Low 3.3-5.1 [facility] RBC Auto (Bld) [#/Vol]Ordere d By: Day Bird on 03-11-2025 RBC (Bld) [#/Vol] 2.56 10*6/uL Low 4.6-6.2 [facility] Serum creatinine measurement (mass/volume)Ordered By: Day Bird on 03-11-2025 Creatinine [Mass/Vol] 1.30 mg/dL High 0.70-1.20 [facility] Serum glucose measurement (m ass/volume)Ordered By: Day Bird on 03-11-2025 Glucose [Mass/Vol] 495 mg/dL High 70-99 [facility] Serum or plasma calcium roosevelt urement (mass/volume)Ordered By: Day Bird on 03-11-2025 Calcium [Mass/Vol] 8.0 mg/dL 7.6-11.0 [facility] Serum or plasma urea nitroge n measurement (mass/volume)Ordered By: Day Bird on 03-11-2025 Urea nitrogen [Mass/Vol] 16 mg/dL 4-19 [facility] Sodium levelOrdered By: Day Bird on 03-11-2025 Sodium [Moles/Vol] 128 mmol/L Low 133-145 [facility] White blood cell (WBC) count Ordered By: Day Whitfieldier on 03-11-2025 WBC (Bld) [#/Vol] 8.2 10*3/uL 4.4-11.0 [facility] MR/PAT.ANEon 03-10-2025 MR/PAT.ANE Normal [facility] Surgery Visit Reporton 03-10 Surgery Visit Report Normal [facility] Paracentesis with USon 03-04 Paracentesis with US Normal [facility] Culture, Anaerobic Any Sourc iliana 03-03-2025 CUAN No growth in 5 days. Normal [facility] Comment on above: Performed By: #### M 100.2900, M100.4001, M100.2000, L200.0200, L400.0001 ####[facility] [address] [place], [place], [id number] Body Fluid Cell Count+Diffon 02-28-2025 PATH COMM/BF Reviewed Normal [facility] Comment [...] #### M 100.2900, M100.4001, M100.2000, L200.0200, L400.0001 ####[facility] [address] [place], [place], [address] Absolute lymphocyte countOrd ered By: Rick Carlin on 02-27-2025 Lymphocytes Auto (Unsp spec) [#/Vol] 1.53 10*3/uL 0.83-4.51 [facility] Anion gap in Serum or Plasma Ordered By: Rick Carlin on 02-27-2025 Anion gap [Moles/Vol] 10 mmol/L 5-15 [facility] Automated lymphocyte count a s percentage of total leukocytesOrdered By: Rick Carlin on 02-27-2025 Lymphocytes/100 WBC Auto (Unsp spec) 18.6 % Low 19-41 [facility] BUN/creatinine ratioOrdered By: Rick Carlin on 02-27-2025 Urea nitrogen/Creatinine [Mass ratio] 13.0 mg/mg 10-20 [facility] Basophil percentageOrdered B y: Rick Raegan on 02-27-2025 Basophils/100 WBC (Bld) 0.9 % 0-1 [facility] Bedside Glucoseon 02-27-2025 FINGERSTICK GLU 368 mg/dL High 74-106 [facility] Comment on above: Result Comment: BRISA GEMENT OF PATIENT CARE PER NURSING PROTOCOL Performed By: #### L 501.080 ####[facility] [address] [place], [address] FINGERSTICK GLU 265 mg/dL High 74-106 [facility] Comment on above: Result Comment: BRISA GEMENT OF PATIENT CARE PER NURSING PROTOCOL Performed By: #### L 501.080 ####[facility] [address] [place], [address] Bilirubin, totalOrdered By: Rick Carlin on 02-27-2025 Bilirubin [Mass/Vol] 4.15 mg/dL High 0.00-1.30 [facility] Blood manual differential co mment interpretation (narrative result)Ordered By: Rick Carlin on 02-27-2025 Manual differential comment Marco Antonio (Bld) [Interp] SCANNED [facility] Blood polychromasia detectio n by light microscopyOrdered By: Rick Carlin on 02-27-2025 Polychromasia LM Ql (Bld) 1+ [facility] CBC W/Diff, Automatedon 02-02 Anisocytosis Ql (Bld) 2+ Normal [facility] Comment on above: Performed By: #### L 500.4050, L100.0100 ####[facility] [address] [place], [address] OVALOCYTE 1+ Normal [facility] Comment on above: Performed By: #### L 500.4050, L100.0100 ####[facility] [address] [place], [address] PLT EST SLT DEC Normal ADEQ [facility] Comment on above: Performed By: #### L 500.4050, L100.0100 ####[facility] [address] [place], [address] POLYCHROMASIA 1+ Normal [facility] Comment on above: Performed By: #### L 500.4050, L100.0100 ####[facility] [address] [place], [address] SMEAR COMMENT SCANNED Normal [facility] Comment on above: Performed By: #### L 500.4050, L100.0100 ####[facility] [address] [place], [address] Carbon dioxide, total [Moles /volume] in Central venous bloodOrdered By: Rick Carlin on 02-27-2025 CO2 [Moles/Vol] 20.8 mmol/L Low 21.0-32.0 [facility] Chloride assayOrdered By: Lissette Carlin on 02-27-2025 Chloride [Moles/Vol] 101 mmol/L 98-108 [facility] Comprehensive Metabolic Prof ilon 02-27-2025 Albumin [Mass/Vol] 2.2 g/dL Low 3.5-5.0 [facility] Comment on above: Performed By: #### L 500.4050, L100.0100 ####[facility] [address] [place], [address] Albumin/Globulin [Mass ratio] 0.7 {ratio} Low 0.9-2.4 [facility] Comment on above: Performed By: #### L 500.4050, L100.0100 ####[facility] [address] [place], [address] ALK PHOS 244 U/L High 40-129 [facility] Comment on above: Performed By: #### L 500.4050, L100.0100 ####[facility] [address] [place], [address] ALT [Catalytic activity/Vol] 43 U/L Normal <=46 [facility] Comment on above: Performed By: #### L 500.4050, L100.0100 ####[facility] [address] [place], [address] AST [Catalytic activity/Vol] 65 U/L High <=37 [facility] Comment on above: Performed By: #### L 500.4050, L100.0100 ####[facility] [address] [place], [address] Bilirubin [Mass/Vol] 4.15 mg/dL High 0.00-1.30 [facility] Comment on above: Performed By: #### L 500.4050, L100.0100 ####[facility] [address] [place], [address] BUN/CRE 13.0 RATIO Normal 10-20 [facility] Comment on above: Performed By: #### L 500.4050, L100.0100 ####[facility] [address] [place], [address] Calcium [Mass/Vol] 8.0 mg/dL Normal 7.6-11.0 [facility] Comment on above: Performed By: #### L 500.4050, L100.0100 ####[facility] [address] [place], [address] Chloride [Moles/Vol] 101 mmol/L Normal 98-108 [facility] Comment on above: Performed By: #### L 500.4050, L100.0100 ####[facility] [address] [place], [address] CO2 [Moles/Vol] 20.8 mmol/L Low 21.0-32.0 [facility] Comment on above: Performed By: #### L 500.4050, L100.0100 ####[facility] [address] [place], [address] Creatinine [Mass/Vol] 1.14 mg/dL Normal 0.70-1.20 [facility] Comment on above: Performed By: #### L 500.4050, L100.0100 ####[facility] [address] [place], [address] ECRCL 78.45 ml/min Normal 50-250 [facility] Comment on above: Performed By: #### L 500.4050, L100.0100 ####[facility] [address] [place], [address] GAP 10 Normal 5-15 [facility] Comment on above: Performed By: #### L 500.4050, L100.0100 ####[facility] [address] [place], [address] GFR/1.73 sq M.predicted among non-blacks MDRD (S/P/Bld) [Vol rate/Area] 75 mL/min/{1.73_m2} Normal >60 [facility] Comment on above: Result Comment: mL/m in/1.73m2 CKD-EPI Creatinine Equation (2020) Performed By: #### L 500.4050, L100.0100 ####[facility] [address] [place], [address] Globulin (S) [Mass/Vol] 3.3 g/dL Normal 2.2-4.2 [facility] Comment on above: Performed By: #### L 500.4050, L100.0100 ####[facility] [address] [place], [address] Glucose [Mass/Vol] 272 mg/dL High 70-99 [facility] Comment on above: Performed By: #### L 500.4050, L100.0100 ####[facility] [address] [place], [address] Potassium [Moles/Vol] 3.2 mmol/L Low 3.3-5.1 [facility] Comment on above: Performed By: #### L 500.4050, L100.0100 ####[facility] [address] [place], [address] Sodium [Moles/Vol] 131 mmol/L Low 133-145 [facility] Comment on above: Performed By: #### L 500.4050, L100.0100 ####[facility] [address] [place], [address] T PROT 5.5 g/dL Low 5.9-8.4 [facility] Comment on above: Performed By: #### L 500.4050, L100.0100 ####[facility] [address] [place], [address] Urea nitrogen [Mass/Vol] 15 mg/dL Normal 4-19 [facility] Comment on above: Performed By: #### L 500.4050, L100.0100 ####[facility] [address] [place], [address] Discharge Instructionon 02-02 Discharge Instruction Normal [facility] Eosinophil percentageOrdered By: Rick Carlin on 02-27-2025 Eosinophils/100 WBC (Bld) 6.2 % High 0-5 [facility] Erythrocyte distribution wid th ratioOrdered By: Rick Carlin on 02-27-2025 Erythrocyte distribution width (RBC) [Ratio] 21.7 % High 11.6-14.6 [facility] Erythrocyte distribution wid th standard deviationOrdered By: Rick Carlin on 02-27-2025 Erythrocyte distribution width (RBC) [Ratio] 68.2 fl High 35.1-43.9 [facility] Glomerular filtration rate ( GFR) estimation/1.73 sq m using serum, plasma, or whole bOrdered By: Rick Carlin on 02-27-2025 GFR/1.73 sq M.predicted among non-blacks MDRD (S/P/Bld) [Vol rate/Area] 75 mL/min/{1.73_m2} >60 [facility] Gl[facility] measurement at [facility] deOrdered By: Rick Carlin on 02-27-2025 Glucose [Mass/Vol] 368 mg/dL High 74-106 [facility] Hematocrit Auto (Bld) [Volum e fraction]Ordered By: Rick Carlin on 02-27-2025 Hematocrit (Bld) [Volume fraction] 24.0 % Low 40-54 [facility] Hemoglobin measurementOrdere d By: Rick Carlin on 02-27-2025 Hemoglobin (Bld) [Mass/Vol] 8.2 g/dL Low 13.0-16.5 [facility] Immature granulocytes/100 WB C Auto (Bld)Ordered By: Rick Carlin on 02-27-2025 Immature granulocytes/100 WBC (Bld) 0.400 % 0.0-0.9 [facility] MCV (mean corpuscular volume ) determinationOrdered By: Rick Carlin on 02-27-2025 MCV (RBC) [Entitic vol] 89.6 fL 80-94 [facility] Mean corpuscular hemoglobin (MCH) determinationOrdered By: Rick Carlin on 02-27-2025 MCH (RBC) [Entitic mass] 30.6 pg 27.0-32.0 [facility] Monocyte percentageOrdered B y: Rick Carlin on 02-27-2025 Monocytes/100 WBC (Bld) 12.5 % High 0-10 [facility] Neutrophil percentageOrdered By: Rick Carlin on 02-27-2025 Neutrophils/100 WBC (Bld) 61.4 % 47-70 [facility] No Panel InformationOrdered By: Rick Carlin on 02-27-2025 2+ [facility] 65 U/L High <38 [facility] Ovalocyte detectionOrdered B y: Rick Carlin on 02-27-2025 Ovalocytes LM Ql (Bld) 1+ Wo [facility] Platelet countOrdered By: Lissette Carlin on 02-27-2025 Platelets (Bld) [#/Vol] 133 10*3/uL Low 150-450 [facility] Platelet estimateOrdered By: Rick Carlin on 02-27-2025 Platelets LM Ql (Bld) SLT DEC ADEQ [facility] Potassium measurement (mass/ volume)Ordered By: Rick Carlin on 02-27-2025 Potassium (Unsp spec) [Mass/Vol] 3.2 mmol/L Low 3.3-5.1 [facility] RBC Auto (Bld) [#/Vol]Ordere d By: Rick Carlin on 02-27-2025 RBC (Bld) [#/Vol] 2.68 10*6/uL Low 4.6-6.2 [facility] Serum creatinine measurement (mass/volume)Ordered By: Rick Carlin on 02-27-2025 Creatinine [Mass/Vol] 1.14 mg/dL 0.70-1.20 [facility] Serum globulin measurementOr dered By: Rick Carlin on 02-27-2025 Globulin (S) [Mass/Vol] 3.3 g/dL 2.2-4.2 [facility] Serum glucose measurement (m ass/volume)Ordered By: Rick Carlin on 02-27-2025 Glucose [Mass/Vol] 272 mg/dL High 70-99 [facility] Serum or plasma alanine thomas otransferase (ALT) measurementOrdered By: Rick Carlin on 02-27-2025 ALT [Catalytic activity/Vol] 43 U/L <47 [facility] Serum or plasma albumin roosevelt urement (mass/volume)Ordered By: Rick Carlin on 02-27-2025 Albumin [Mass/Vol] 2.2 g/dL Low 3.5-5.0 [facility] Serum or plasma albumin/glob ulin mass ratioOrdered By: Rick Carlin on 02-27-2025 Albumin/Globulin [Mass ratio] 0.7 {ratio} Low 0.9-2.4 [facility] Serum or plasma alkaline kendrick sphatase measurementOrdered By: Rick Carlin on 02-27-2025 ALP [Catalytic activity/Vol] 244 U/L High 40-129 [facility] Serum or plasma calcium roosevelt urement (mass/volume)Ordered By: Rick Carlin on 02-27-2025 Calcium [Mass/Vol] 8.0 mg/dL 7.6-11.0 [facility] Serum or plasma urea nitroge n measurement (mass/volume)Ordered By: Rick Carlin on 02-27-2025 Urea nitrogen [Mass/Vol] 15 mg/dL 4-19 [facility] Sodium levelOrdered By: Rick Carlin on 02-27-2025 Sodium [Moles/Vol] 131 mmol/L Low 133-145 [facility] Total proteinOrdered By: Meredith Carlin on 02-27-2025 Protein [Mass/Vol] 5.5 g/dL Low 5.9-8.4 [facility] White blood cell (WBC) count Ordered By: Rick Carlin on 02-27-2025 WBC (Bld) [#/Vol] 8.2 10*3/uL 4.4-11.0 [facility] Bedside Glucoseon 02-26-2025 FINGERSTICK GLU 323 mg/dL High [address] [place] [address] Comment on above: Result Comment: BRISA GEMENT OF PATIENT CARE PER NURSING PROTOCOL Performed By: #### L 501.080 ####[facility] [address] [facility] [address] FINGERSTICK GLU 359 mg/dL High [address] [place] [address] Comment on above: Result Comment: BRISA GEMENT OF PATIENT CARE PER NURSING PROTOCOL Performed By: #### L 501.080 ####[facility] [address] [facility] [address] FINGERSTICK GLU 344 mg/dL High [address] [place] [address] Comment on above: Result Comment: BRISA GEMENT OF PATIENT CARE PER NURSING PROTOCOL Performed By: #### L 501.080 ####[facility] [address] [facility] [address] FINGERSTICK GLU 267 mg/dL High [address] [facility] Comment on above: Result Comment: BRISA GEMENT OF PATIENT CARE PER NURSING PROTOCOL Performed By: #### L 501.080 ####[facility] [address] [place], [address] Body Fluid Culton 02-26-2025 BFC Culture exhibits no growth. Normal [facility] Comment on above: Performed By: #### M 100.2900, M100.4001, M100.2000, L200.0200, L400.0001 ####[facility] [address] [place], [address] CBC W/Diff, Automatedon 07- Anisocytosis Ql (Bld) 2+ Normal [facility] Comment on above: Performed By: #### L 100.0100, L500.4050 ####[facility] [address] [place], [address] SMEAR COMMENT SCANNED Normal [facility] Comment on above: Performed By: #### L 100.0100, L500.4050 ####[facility] [address] [place], [address] Comprehensive Metabolic Prof ilon 02-26-2025 Albumin [Mass/Vol] 2.4 g/dL Low 3.5-5.0 [facility] Comment on above: Performed By: #### L 100.0100, L500.4050 ####[facility] [address] [place], [address] Albumin/Globulin [Mass ratio] 0.7 {ratio} Low 0.9-2.4 [facility] Comment on above: Performed By: #### L 100.0100, L500.4050 ####[facility] [address] [place], [address] ALK PHOS 258 U/L High 40-129 [facility] Comment on above: Performed By: #### L 100.0100, L500.4050 ####[facility] [address] [place], [address] ALT [Catalytic activity/Vol] 50 U/L High <=46 [facility] Comment on above: Performed By: #### L 100.0100, L500.4050 ####[facility] [address] [place], [address] AST [Catalytic activity/Vol] 78 U/L High <=37 [facility] Comment on above: Performed By: #### L 100.0100, L500.4050 ####[facility] [address] [place], [address] Bilirubin [Mass/Vol] 5.33 mg/dL High 0.00-1.30 [facility] Comment on above: Performed By: #### L 100.0100, L500.4050 ####[facility] [address] [place], [address] BUN/CRE 12.9 RATIO Normal 10-20 [facility] Comment on above: Performed By: #### L 100.0100, L500.4050 ####[facility] [address] [place], [address] Calcium [Mass/Vol] 8.3 mg/dL Normal 7.6-11.0 [facility] Comment on above: Performed By: #### L 100.0100, L500.4050 ####[facility] [address] [place], [address] Chloride [Moles/Vol] 102 mmol/L Normal 98-108 [facility] Comment on above: Performed By: #### L 100.0100, L500.4050 ####[facility] [address] [place], [address] CO2 [Moles/Vol] 19.6 mmol/L Low 21.0-32.0 [facility] Comment on above: Performed By: #### L 100.0100, L500.4050 ####[facility] [address] [place], [address] Creatinine [Mass/Vol] 1.03 mg/dL Normal 0.70-1.20 [facility] Comment on above: Result Comment: Icte daquan present, Results may be affected. Performed By: #### L 100.0100, L500.4050 ####[facility] [address] [place], [address] ECRCL 86.83 ml/min Normal 50-250 [facility] Comment on above: Performed By: #### L 100.0100, L500.4050 ####[facility] [address] [place], [address] GAP 12 Normal 5-15 [facility] Comment on above: Performed By: #### L 100.0100, L500.4050 ####[facility] [address] [place], [address] GFR/1.73 sq M.predicted among non-blacks MDRD (S/P/Bld) [Vol rate/Area] 84 mL/min/{1.73_m2} Normal >60 [facility] Comment on above: Result Comment: mL/m in/1.73m2 CKD-EPI Creatinine Equation (2020) Performed By: #### L 100.0100, L500.4050 ####[facility] [address] [place], [address] Globulin (S) [Mass/Vol] 3.6 g/dL Normal 2.2-4.2 [facility] Comment on above: Performed By: #### L 100.0100, L500.4050 ####[facility] [address] [place], [address] Glucose [Mass/Vol] 269 mg/dL High 70-99 [facility] Comment on above: Performed By: #### L 100.0100, L500.4050 ####[facility] [address] [place], [address] Potassium [Moles/Vol] 3.0 mmol/L Low 3.3-5.1 [facility] Comment on above: Performed By: #### L 100.0100, L500.4050 ####[facility] [address] [place], [address] Sodium [Moles/Vol] 133 mmol/L Normal 133-145 [facility] Comment on above: Performed By: #### L 100.0100, L500.4050 ####[facility] [address] [place], [address] T PROT 6.0 g/dL Normal 5.9-8.4 [facility] Comment on above: Performed By: #### L 100.0100, L500.4050 ####[facility] [address] [place], [address] Urea nitrogen [Mass/Vol] 13 mg/dL Normal 4-19 [facility] Comment on above: Performed By: #### L 100.0100, L500.4050 ####[facility] [address] [place], [address] Gram Stainon 02-26-2025 GS Centrifuged Specimen ? Culture performed on centrifuged specimen Gram Stain No organisms seen Rare White Blood Cells Normal [facility] Comment on above: Performed By: #### M 100.2900, M100.4001, M100.2000, L200.0200, L400.0001 ####[facility] [address] [place], [address] Prothrombin Time w/INRon INR Coag (PPP) [Relative time] 2.1 {INR} Normal [facility] Comment on above: Order Comment: Comme nts: Add onto previous labs if possible Performed By: #### L 300.3900 ####[facility] [address] [place], [address] PT Coag (PPP) [Time] 23.7 s High 11.7-14.9 [facility] Comment on above: Order Comment: Comme nts: Add onto previous labs if possible Performed By: #### L 300.3900 ####[facility] [address] [place], [place], [id number] Prothrombin timeOrdered By: Kathie Powers on 02-26-2025 PT Coag (PPP) [Time] 23.7 s High 11.7-14.9 [facility] Ammoniaon 02-25-2025 Ammonia (P) [Moles/Vol] 127.0 umol/L High 16-60 [facility] Comment on above: Performed By: #### L 500.4050, L503.5510, L100.0100, L501.2450 ####[facility] [address] [place], [place], [address] Anaerobic cultureOrdered By: Herberth Carlson on 02-25-2025 Bacteria identified Anaer cx Nom (Unsp spec) No growth in 5 days. [facility] Bedside Glucoseon 02-25-2025 FINGERSTICK GLU 271 mg/dL High 74-106 [facility] Comment on above: Result Comment: BRISA GEMENT OF PATIENT CARE PER NURSING PROTOCOL Performed By: #### L 501.080 ####[facility] [address] [place], [address] FINGERSTICK GLU 192 mg/dL High 74-106 [facility] Comment on above: Result Comment: BRISA GEMENT OF PATIENT CARE PER NURSING PROTOCOL Performed By: #### L 501.080 ####[facility] [address] [place], [place], [address] Bilirubin Test strip Ql (U)O rdered By: Herberth Carlson on 02-25-2025 Bilirubin Ql (U) 3 mg/dL High Negative [facility] Body fluid appearance (nomin al result)Ordered By: Herberth Carlson on 02-25-2025 Appearance (Body fld) SL CLDY [facility] Body fluid color determinati onOrdered By: Herberth Carlson on 02-25-2025 Color (Body fld) YELLOW [facility] Body fluid cultureOrdered By : Herberth Carlson on 02-25-2025 Microbial culture, body fluid Culture exhibits no growth. [facility] Body fluid leukocytes count (number/volume)Ordered By: Herberth Carlson on 02-25-2025 WBC (Body fld) [#/Vol] 0.153 10*3/uL [facility] Body fluid lymphocytes/100 l eukocytesOrdered By: Herberth Carlson on 02-25-2025 Lymphocytes/100 WBC (Body fld) 6 % [facility] Body fluid macrophage countO rdered By: Herberth Carlson on 02-25-2025 Macrophages (Body fld) [#/Vol] 75 % [facility] Body fluid mesothelial cell percentageOrdered By: Herberth Carlson on 02-25-2025 Mesothelial cells/100 WBC (Body fld) 10 % [facility] Body fluid mononuclear cell percentageOrdered By: Herberth Carlson on 02-25-2025 Mononuclear cells/100 WBC (Body fld) 90.1 % [facility] Body fluid segmented neutrop hils count (number/volume)Ordered By: Herberth Carlson on 02-25-2025 Segmented neutrophils (Body fld) [#/Vol] 4 % [facility] Body fluid total cell countO rdered By: Herberth Carlson on 02-25-2025 Cells Counted Total (Body fld) [#] 0.207 10^3/ul [facility] CBC W/Diff, Automatedon - Anisocytosis Ql (Bld) 1+ Normal [facility] Comment on above: Performed By: #### L 500.4050, L503.5510, L100.0100, L501.2450 ####[facility] [address] [place], [address] Comprehensive Metabolic Prof ilon 02-25-2025 Albumin [Mass/Vol] 2.0 g/dL Low 3.5-5.0 [facility] Comment on above: Performed By: #### L 500.4050, L503.5510, L100.0100, L501.2450 ####[facility] [address] [place], [address] Albumin/Globulin [Mass ratio] 0.5 {ratio} Low 0.9-2.4 [facility] Comment on above: Performed By: #### L 500.4050, L503.5510, L100.0100, L501.2450 ####[facility] [address] [place], [address] ALK PHOS 249 U/L High 40-129 [facility] Comment on above: Performed By: #### L 500.4050, L503.5510, L100.0100, L501.2450 ####[facility] [address] [place], [address] ALT [Catalytic activity/Vol] 51 U/L High <=46 [facility] Comment on above: Result Comment: Hemo lysis present, Results??could be affected.?? Performed By: #### L 500.4050, L503.5510, L100.0100, L501.2450 ####[facility] [address] [place], [address] AST [Catalytic activity/Vol] 97 U/L High <=37 [facility] Comment on above: Result Comment: Hemo lysis present, Results??could be affected.?? Performed By: #### L 500.4050, L503.5510, L100.0100, L501.2450 ####[facility] [address] [place], [address] Bilirubin [Mass/Vol] 4.99 mg/dL High 0.00-1.30 [facility] Comment on above: Performed By: #### L 500.4050, L503.5510, L100.0100, L501.2450 ####[facility] [address] [place], [address] BUN/CRE 8.9 RATIO Low 10-20 [facility] Comment on above: Performed By: #### L 500.4050, L503.5510, L100.0100, L501.2450 ####[facility] [address] [place], [address] Calcium [Mass/Vol] 8.1 mg/dL Normal 7.6-11.0 [facility] Comment on above: Performed By: #### L 500.4050, L503.5510, L100.0100, L501.2450 ####[facility] [address] [place], [address] Chloride [Moles/Vol] 102 mmol/L Normal 98-108 [facility] Comment on above: Performed By: #### L 500.4050, L503.5510, L100.0100, L501.2450 ####[facility] [address] [place], [address] CO2 [Moles/Vol] 17.5 mmol/L Low 21.0-32.0 [facility] Comment on above: Performed By: #### L 500.4050, L503.5510, L100.0100, L501.2450 ####[facility] [address] [place], [address] Creatinine [Mass/Vol] 1.07 mg/dL Normal 0.70-1.20 [facility] Comment on above: Result Comment: Icte daquan present, Results may be affected. Performed By: #### L 500.4050, L503.5510, L100.0100, L501.2450 ####[facility] [address] [place], [address] ECRCL 86.96 ml/min Normal 50-250 [facility] Comment on above: Performed By: #### L 500.4050, L503.5510, L100.0100, L501.2450 ####[facility] [address] [place], [address] GAP 12 Normal 5-15 [facility] Comment on above: Performed By: #### L 500.4050, L503.5510, L100.0100, L501.2450 ####[facility] [address] [place], [address] GFR/1.73 sq M.predicted among non-blacks MDRD (S/P/Bld) [Vol rate/Area] 80 mL/min/{1.73_m2} Normal >60 [facility] Comment on above: Result Comment: mL/m in/1.73m2 CKD-EPI Creatinine Equation (2020) Performed By: #### L 500.4050, L503.5510, L100.0100, L501.2450 ####[facility] [address] [place], [address] Globulin (S) [Mass/Vol] 3.9 g/dL Normal 2.2-4.2 [facility] Comment on above: Performed By: #### L 500.4050, L503.5510, L100.0100, L501.2450 ####[facility] [address] [place], [address] Glucose [Mass/Vol] 225 mg/dL High 70-99 [facility] Comment on above: Performed By: #### L 500.4050, L503.5510, L100.0100, L501.2450 ####[facility] [address] [place], [address] Potassium [Moles/Vol] 3.7 mmol/L Normal 3.3-5.1 [facility] Comment on above: Result Comment: Hemo lysis present, Results??could be affected.?? Performed By: #### L 500.4050, L503.5510, L100.0100, L501.2450 ####[facility] [address] [place], [address] Sodium [Moles/Vol] 131 mmol/L Low 133-145 [facility] Comment on above: Performed By: #### L 500.4050, L503.5510, L100.0100, L501.2450 ####[facility] [address] [place], [address] T PROT 5.9 g/dL Normal 5.9-8.4 [facility] Comment on above: Performed By: #### L 500.4050, L503.5510, L100.0100, L501.2450 ####[facility] [address] [place], [address] Urea nitrogen [Mass/Vol] 10 mg/dL Normal 4-19 [facility] Comment on above: Performed By: #### L 500.4050, L503.5510, L100.0100, L501.2450 ####[facility] [address] [place], [address] Emergency Department Summary on 02-25-2025 Emergency Department Summary Normal [facility] Gram stainOrdered By: Lopez Carlson on 02-25-2025 Microscopic observation Gram stain Nom (Unsp spec) [facility] H AND P Exam - Hospitaliston 02-25-2025 H&P Exam - Hospitalist Normal [facility] Ketones Test strip Ql (U)Ord ered By: Herberth Carlson on 02-25-2025 Ketones Ql (U) 5 mg/dl High Negative [facility] Lipaseon 02-25-2025 Lipase [Catalytic activity/Vol] 64 U/L Normal 13-75 [facility] Comment on above: Result Comment: Plea se note:LIPASE revised reference range effective 22.New Lipase methodology. Expected to produce lower valuesthan the previous assay method.NEW Reference Range: 13 - 75 U/L Performed By: #### L 500.4050, L503.5510, L100.0100, L501.2450 ####[facility] [address] [place], [place], [id number] MR/CON.PCM.GIon 02-25-2025 MR/CON.PCM.GI Normal [facility] Monocyte detectionOrdered By : Herberth Carlson on 02-25-2025 Monocytes/100 WBC (Bld) 5 % [facility] Mucus LM Ql (Urine sed)Order ed By: Herberth Carlson on 02-25-2025 Mucus Ql (Urine sed) 0 SEEN /hpf [facility] Nitrite Test strip Ql (U)Ord ered By: Herberth Carlson on 02-25-2025 Nitrite Ql (U) Negative Negative [facility] No Panel InformationOrdered By: Herberth Carlson on 02-25-2025 283 /mm3 [facility] SEE COMMENT [facility] Pathologist interpretation o f Body fluid testsOrdered By: Herberth Carlson on 02-25-2025 Pathologist interpretation (Body fld) [Interp] Reviewed [facility] Protein Test strip Ql (U)Ord ered By: Herberth Carlson on 02-25-2025 Protein Ql (U) 100 mg/dl High Negative [facility] Specimen source identificati on of body fluidOrdered By: Herberth Carlson on 02-25-2025 Specimen source Nom (Body fld) ASCITES FLUID [facility] Squamous epithelial cells de tection in urine sediment by light microscopyOrdered By: Herberth Carlson on 02-25-2025 Epithelial cells.squamous LM Ql (Urine sed) 0 SEEN /hpf 0-5 [facility] Urinalysis, Completeon 02-25 RBC > 100 SEEN Normal 0-5 [facility] Comment on above: Order Comment: COLOR OF URINE MAY AFFECT DIPSTICK RESULTS.CLEAN CATCH Result Comment: Micr oscopic field is filled. Other elements may beobscured. Performed By: #### M 100.2900, M100.4001, M100.2000, L200.0200, L400.0001 ####[facility] [address] [place], [address] WBC >100 SEEN Normal 0-5 [facility] Comment on above: Order Comment: COLOR OF URINE MAY AFFECT DIPSTICK RESULTS.CLEAN CATCH Result Comment: Micr oscopic field is filled. Other elements may beobscured. Performed By: #### M 100.2900, M100.4001, M100.2000, L200.0200, L400.0001 ####[facility] [address] [place], [address] YEAST 2+ /hpf Normal None Seen [facility] Comment on above: Order Comment: COLOR OF URINE MAY AFFECT DIPSTICK RESULTS.CLEAN CATCH Performed By: #### M 100.2900, M100.4001, M100.2000, L200.0200, L400.0001 ####[facility] [address] [place], [address] BACTERIA 0 SEEN Normal None Seen [facility] Comment on above: Order Comment: COLOR OF URINE MAY AFFECT DIPSTICK RESULTS.CLEAN CATCH Performed By: #### M 100.2900, M100.4001, M100.2000, L200.0200, L400.0001 ####[facility] [address] [place], [address] EPI,SQUAMOUS 0 SEEN Normal 0-5 [facility] Comment on above: Order Comment: COLOR OF URINE MAY AFFECT DIPSTICK RESULTS.CLEAN CATCH Performed By: #### M 100.2900, M100.4001, M100.2000, L200.0200, L400.0001 ####[facility] [address] [place], [address] Mucus Ql (Urine sed) 0 SEEN Normal [facility] Comment on above: Order Comment: COLOR OF URINE MAY AFFECT DIPSTICK RESULTS.CLEAN CATCH Performed By: #### M 100.2900, M100.4001, M100.2000, L200.0200, L400.0001 ####[facility] [address] [place], [address] Urine clarityOrdered By: Digna Carlson on 02-25-2025 Clarity (U) Cloudy Clear [facility] Urine color determinationOrd ered By: Herberth Carlson on 02-25-2025 Color (U) Red Yellow [facility] Urine glucose detectionOrder ed By: Herberth Carlson on 02-25-2025 Glucose Ql (U) 100 mg/dl High Normal [facility] Urine leukocyte esterase det ection by dipstickOrdered By: Herberth Carlson on 02-25-2025 Leukocyte esterase Test strip Ql (U) 500 /ul High Negative [facility] Urine pHOrdered By: Herberth Carlson on 02-25-2025 pH (U) 6.5 [pH] 5.0 - 8.0 [facility] Urine sediment bacteria coun t by microscopy (number/high power field)Ordered By: Herberth Carlson on 02-25-2025 Bacteria LM.HPF (Urine sed) [#/Area] 0 /[HPF] None Seen [facility] Urine sediment yeast count b y microscopy (number/high powered field)Ordered By: Herberth Carlson on 02-25-2025 Yeast LM.HPF (Urine sed) [#/Area] 2 /[HPF] None Seen [facility] Urine specific gravity measu rementOrdered By: Herberth Carlson on 02-25-2025 Specific gravity (U) [Rel density] 1.015 1.002-1.030 [facility] Urine urobilinogen measureme ntOrdered By: Herberth Carlson on 02-25-2025 Urobilinogen Ql (U) Normal mg/dl Normal [facility] Venous blood ammonia measure mentOrdered By: Herberth Carlson on 02-25-2025 Ammonia (P) [Moles/Vol] 127.0 umol/L High 16-60 [facility] White blood cell countOrdere d By: Herberth Carlson on 02-25-2025 White blood cell count >100 SEEN /hpf 0-5 [facility] Hepatitis Panel Acuteon 02-01 COMMENT Comment Normal . [facility] Comment on above: Result Comment: Not infected with HCV unless early or acute infection issuspected (which may be delayed in an immunocompromisedindividual), or other evidence exists to indicate HCVinfection.Performed at: [facility] [id number] [place], [place] [id number] Director: Buck Ivy PhD, Phone: [phone] Performed By: #### L 100.0100, L500.4050, L3000.0375, L503.5510 ####[facility] [address] [place], [address] HEP B CORE,IgM Negative Normal Negative [facility] Comment on above: Performed By: #### L 100.0100, L500.4050, L3000.0375, L503.5510 ####[facility] [address] [place], [address] HEP B SURF AG Negative Normal Negative [facility] Comment on above: Performed By: #### L 100.0100, L500.4050, L3000.0375, L503.5510 ####[facility] [address] [place], [address] HEP C VIRUS AB Non-Reactive Normal Non Reactive [facility] Comment on above: Performed By: #### L 100.0100, L500.4050, L3000.0375, L503.5510 ####[facility] [address] [place], [address] HEPATITIS A-IgM Negative Normal Negative [facility] Comment on above: Result Comment: A ne gative anti-HAV IgM result suggests no recent orcurrent HAV infection. Performed By: #### L 100.0100, L500.4050, L3000.0375, L503.5510 ####[facility] [address] [place], [address] Anion gap in Serum or Plasma Ordered By: Jae Ash on 02-17-2025 Anion gap [Moles/Vol] 10 mmol/L 5-15 [facility] BUN/creatinine ratioOrdered By: Jae Ash on 02-17-2025 Urea nitrogen/Creatinine [Mass ratio] 9.7 mg/mg Low 10-20 [facility] Bedside Glucoseon 02-17-2025 FINGERSTICK GLU 194 mg/dL High 74-106 [facility] Comment on above: Result Comment: BRISA MOROCHO OF PATIENT CARE PER NURSING PROTOCOL Performed By: #### L 501.080 ####[facility] [address] [place], [address] Bilirubin, totalOrdered By: Jae Ash on 02-17-2025 Bilirubin [Mass/Vol] 6.79 mg/dL High 0.00-1.30 [facility] Blood manual differential co mment interpretation (narrative result)Ordered By: Jae Ash on 02-17-2025 Manual differential comment Marco Antonio (Bld) [Interp] SCANNED [facility] CBC-Complete Blood Cnt No Di ffon 02-17-2025 Erythrocyte distribution width (RBC) [Ratio] 19.0 % High 11.6-14.6 [facility] Comment on above: Performed By: #### L 500.4050, L100.4500, L300.3900, L100.0500 ####[facility] [address] [place], [address] Hematocrit (Bld) [Volume fraction] 21.9 % Low 40-54 [facility] Comment on above: Performed By: #### L 500.4050, L100.4500, L300.3900, L100.0500 ####[facility] [address] [place], [address] Hemoglobin (Bld) [Mass/Vol] 7.7 g/dL Low 13.0-16.5 [facility] Comment on above: Performed By: #### L 500.4050, L100.4500, L300.3900, L100.0500 ####[facility] [address] [place], [address] MCH (RBC) [Entitic mass] 30.0 pg Normal 27.0-32.0 [facility] Comment on above: Performed By: #### L 500.4050, L100.4500, L300.3900, L100.0500 ####[facility] [address] [place], [address] MCHC (RBC) [Mass/Vol] 35.2 g/dL Normal 32-36 [facility] Comment on above: Performed By: #### L 500.4050, L100.4500, L300.3900, L100.0500 ####[facility] [address] [place], [address] MCV (RBC) [Entitic vol] 85.2 fL Normal 80-94 [facility] Comment on above: Performed By: #### L 500.4050, L100.4500, L300.3900, L100.0500 ####[facility] [address] [place], [address] Platelet mean volume (Bld) [Entitic vol] 11.7 fL Normal 6.2-12.0 [facility] Comment on above: Performed By: #### L 500.4050, L100.4500, L300.3900, L100.0500 ####[facility] [address] [place], [address] Platelets (Bld) [#/Vol] 90 10*3/uL Low 150-450 [facility] Comment on above: Performed By: #### L 500.4050, L100.4500, L300.3900, L100.0500 ####[facility] [address] [place], [address] RBC (Bld) [#/Vol] 2.57 10*6/uL Low 4.6-6.2 [facility] Comment on above: Performed By: #### L 500.4050, L100.4500, L300.3900, L100.0500 ####[facility] [address] [place], [address] RDW SD 51.1 fl High 35.1-43.9 [facility] Comment on above: Performed By: #### L 500.4050, L100.4500, L300.3900, L100.0500 ####[facility] [address] [place], [address] WBC (Bld) [#/Vol] 8.5 10*3/uL Normal 4.4-11.0 [facility] Comment on above: Performed By: #### L 500.4050, L100.4500, L300.3900, L100.0500 ####[facility] [address] [place], [address] Carbon dioxide, total [Moles /volume] in Central venous bloodOrdered By: Jae Ash on 02-17-2025 CO2 [Moles/Vol] 22.1 mmol/L 21.0-32.0 [facility] Chloride assayOrdered By: Sky Ash on 02-17-2025 Chloride [Moles/Vol] 100 mmol/L 98-108 [facility] Comprehensive Metabolic Prof ilon 02-17-2025 Albumin [Mass/Vol] 2.1 g/dL Low 3.5-5.0 [facility] Comment on above: Performed By: #### L 500.4050, L100.4500, L300.3900, L100.0500 ####[facility] [address] [place], [address] Albumin/Globulin [Mass ratio] 0.7 {ratio} Low 0.9-2.4 [facility] Comment on above: Performed By: #### L 500.4050, L100.4500, L300.3900, L100.0500 ####[facility] [address] [place], [address] ALK PHOS 278 U/L High 40-129 [facility] Comment on above: Performed By: #### L 500.4050, L100.4500, L300.3900, L100.0500 ####[facility] [address] [place], [address] ALT [Catalytic activity/Vol] 46 U/L Normal <=46 [facility] Comment on above: Performed By: #### L 500.4050, L100.4500, L300.3900, L100.0500 ####[facility] [address] [place], [address] AST [Catalytic activity/Vol] 99 U/L High <=37 [facility] Comment on above: Result Comment: Hemo lysis present, Results??could be affected.?? Performed By: #### L 500.4050, L100.4500, L300.3900, L100.0500 ####[facility] [address] [place], [address] Bilirubin [Mass/Vol] 6.79 mg/dL High 0.00-1.30 [facility] Comment on above: Performed By: #### L 500.4050, L100.4500, L300.3900, L100.0500 ####[facility] [address] [place], [address] BUN/CRE 9.7 RATIO Low 10-20 [facility] Comment on above: Performed By: #### L 500.4050, L100.4500, L300.3900, L100.0500 ####[facility] [address] [place], [address] Calcium [Mass/Vol] 7.3 mg/dL Low 7.6-11.0 [facility] Comment on above: Performed By: #### L 500.4050, L100.4500, L300.3900, L100.0500 ####[facility] [address] [place], [address] Chloride [Moles/Vol] 100 mmol/L Normal 98-108 [facility] Comment on above: Performed By: #### L 500.4050, L100.4500, L300.3900, L100.0500 ####[facility] [address] [place], [address] CO2 [Moles/Vol] 22.1 mmol/L Normal 21.0-32.0 [facility] Comment on above: Performed By: #### L 500.4050, L100.4500, L300.3900, L100.0500 ####[facility] [address] [place], [address] Creatinine [Mass/Vol] 1.16 mg/dL Normal 0.70-1.20 [facility] Comment on above: Result Comment: Icte daquan present, Results may be affected. Performed By: #### L 500.4050, L100.4500, L300.3900, L100.0500 ####[facility] [address] [place], [address] ECRCL 79.19 ml/min Normal 50-250 [facility] Comment on above: Performed By: #### L 500.4050, L100.4500, L300.3900, L100.0500 ####[facility] [address] [place], [address] GAP 10 Normal 5-15 [facility] Comment on above: Performed By: #### L 500.4050, L100.4500, L300.3900, L100.0500 ####[facility] [address] [place], [address] GFR/1.73 sq M.predicted among non-blacks MDRD (S/P/Bld) [Vol rate/Area] 73 mL/min/{1.73_m2} Normal >60 [facility] Comment on above: Result Comment: mL/m in/1.73m2 CKD-EPI Creatinine Equation (2020) Performed By: #### L 500.4050, L100.4500, L300.3900, L100.0500 ####[facility] [address] [place], [address] Globulin (S) [Mass/Vol] 3.2 g/dL Normal 2.2-4.2 [facility] Comment on above: Performed By: #### L 500.4050, L100.4500, L300.3900, L100.0500 ####[facility] [address] [place], [address] Glucose [Mass/Vol] 246 mg/dL High 70-99 [facility] Comment on above: Performed By: #### L 500.4050, L100.4500, L300.3900, L100.0500 ####[facility] [address] [place], [address] Potassium [Moles/Vol] 3.6 mmol/L Normal 3.3-5.1 [facility] Comment on above: Result Comment: Hemo lysis present, Results??could be affected.?? Performed By: #### L 500.4050, L100.4500, L300.3900, L100.0500 ####[facility] [address] [place], [address] Sodium [Moles/Vol] 132 mmol/L Low 133-145 [facility] Comment on above: Performed By: #### L 500.4050, L100.4500, L300.3900, L100.0500 ####[facility] [address] [place], [address] T PROT 5.3 g/dL Low 5.9-8.4 [facility] Comment on above: Performed By: #### L 500.4050, L100.4500, L300.3900, L100.0500 ####[facility] [address] [place], [address] Urea nitrogen [Mass/Vol] 11 mg/dL Normal 4-19 [facility] Comment on above: Performed By: #### L 500.4050, L100.4500, L300.3900, L100.0500 ####[facility] [address], [address] Differential Commenton 02-17 SMEAR COMMENT SCANNED Normal [facility] Comment on above: Result Comment: MODE RATE THROMBOCYTOPENIA NOTED Performed By: #### L 500.4050, L100.4500, L300.3900, L100.0500 ####[facility] [address] [place], [address] Discharge Instructionon 02-01 Discharge Instruction Normal [facility] Erythrocyte distribution wid th ratioOrdered By: Jae Ash on 02-17-2025 Erythrocyte distribution width (RBC) [Ratio] 19.0 % High 11.6-14.6 [facility] Erythrocyte distribution wid th standard deviationOrdered By: Jae Ash on 02-17-2025 Erythrocyte distribution width (RBC) [Ratio] 51.1 fl High 35.1-43.9 [facility] Glomerular filtration rate ( GFR) estimation/1.73 sq m using serum, plasma, or whole bOrdered By: Jae Ash on 02-17-2025 GFR/1.73 sq M.predicted among non-blacks MDRD (S/P/Bld) [Vol rate/Area] 73 mL/min/{1.73_m2} >60 [facility] deOrdered By: Anurag Irene on 02-17-2025 Glucose [Mass/Vol] 194 mg/dL High 74-106 [facility] Hematocrit Auto (Bld) [Volum e fraction]Ordered By: Jae Ash on 02-17-2025 Hematocrit (Bld) [Volume fraction] 21.9 % Low 40-54 [facility] Hemoglobin measurementOrdere d By: Jae Ash on 02-17-2025 Hemoglobin (Bld) [Mass/Vol] 7.7 g/dL Low 13.0-16.5 [facility] MCV (mean corpuscular volume ) determinationOrdered By: Jae Ash on 02-17-2025 MCV (RBC) [Entitic vol] 85.2 fL 80-94 [facility] MR/CON.PCM.GIon 02-17-2025 MR/CON.PCM.GI Normal [facility] Mean corpuscular hemoglobin (MCH) determinationOrdered By: Jae Ash on 02-17-2025 MCH (RBC) [Entitic mass] 30.0 pg 27.0-32.0 [facility] No Panel InformationOrdered By: Jae Ash on 02-17-2025 99 U/L High <38 [facility] Platelet countOrdered By: Sky Ash on 02-17-2025 Platelets (Bld) [#/Vol] 90 10*3/uL Low 150-450 [facility] Potassium measurement (mass/ volume)Ordered By: Jae Ash on 02-17-2025 Potassium (Unsp spec) [Mass/Vol] 3.6 mmol/L 3.3-5.1 [facility] Prothrombin Time w/INRon INR Coag (PPP) [Relative time] 2.0 {INR} Normal [facility] Comment on above: Performed By: #### L 500.4050, L100.4500, L300.3900, L100.0500 ####[facility] [address] [place], [address] PT Coag (PPP) [Time] 22.8 s High 11.7-14.9 [facility] Comment on above: Performed By: #### L 500.4050, L100.4500, L300.3900, L100.0500 ####[facility] [address] [place], [address] Prothrombin timeOrdered By: Jae Ash on 02-17-2025 PT Coag (PPP) [Time] 22.8 s High 11.7-14.9 [facility] RBC Auto (Bld) [#/Vol]Ordere d By: Jae Ash on 02-17-2025 RBC (Bld) [#/Vol] 2.57 10*6/uL Low 4.6-6.2 [facility] Serum creatinine measurement (mass/volume)Ordered By: Jae Ash on 02-17-2025 Creatinine [Mass/Vol] 1.16 mg/dL 0.70-1.20 [facility] Serum globulin measurementOr dered By: Jae Ash on 02-17-2025 Globulin (S) [Mass/Vol] 3.2 g/dL 2.2-4.2 [facility] Serum glucose measurement (m ass/volume)Ordered By: Jea Ash on 02-17-2025 Glucose [Mass/Vol] 246 mg/dL High 70-99 [facility] Serum or plasma alanine thomas otransferase (ALT) measurementOrdered By: Jae Ash on 02-17-2025 ALT [Catalytic activity/Vol] 46 U/L <47 [facility] Serum or plasma albumin roosevelt urement (mass/volume)Ordered By: Jae Ash on 02-17-2025 Albumin [Mass/Vol] 2.1 g/dL Low 3.5-5.0 [facility] Serum or plasma albumin/glob ulin mass ratioOrdered By: Jae Ash on 02-17-2025 Albumin/Globulin [Mass ratio] 0.7 {ratio} Low 0.9-2.4 [facility] Serum or plasma alkaline kendrick sphatase measurementOrdered By: Jae Ash on 02-17-2025 ALP [Catalytic activity/Vol] 278 U/L High 40-129 [facility] Serum or plasma calcium roosevelt urement (mass/volume)Ordered By: Jae Ash on 02-17-2025 Calcium [Mass/Vol] 7.3 mg/dL Low 7.6-11.0 [facility] Serum or plasma urea nitroge n measurement (mass/volume)Ordered By: Jae Ash on 02-17-2025 Urea nitrogen [Mass/Vol] 11 mg/dL 4-19 [facility] Sodium levelOrdered By: Pasha Ash on 02-17-2025 Sodium [Moles/Vol] 132 mmol/L Low 133-145 [facility] Total proteinOrdered By: Diane Ash on 02-17-2025 Protein [Mass/Vol] 5.3 g/dL Low 5.9-8.4 [facility] White blood cell (WBC) count Ordered By: Jae Ash on 02-17-2025 WBC (Bld) [#/Vol] 8.5 10*3/uL 4.4-11.0 [facility] Absolute lymphocyte countOrd ered By: Jerald Sherwood on 02-16-2025 Lymphocytes Auto (Unsp spec) [#/Vol] 1.28 10*3/uL 0.83-4.51 [facility] Anion gap in Serum or Plasma Ordered By: Jerald Sherwood on 02-16-2025 Anion gap [Moles/Vol] 12 mmol/L 5-15 [facility] Automated lymphocyte count a s percentage of total leukocytesOrdered By: Jerald Sherwood on 02-16-2025 Lymphocytes/100 WBC Auto (Unsp spec) 15.1 % Low 19-41 [facility] BUN/creatinine ratioOrdered By: Jerald Sherwood on 02-16-2025 Urea nitrogen/Creatinine [Mass ratio] 9.4 mg/mg Low 10-20 [facility] [facility] Basophil percentageOrdered B y: Jerald Sherwood on 02-16-2025 Basophils/100 WBC (Bld) 0.5 % 0-1 [facility] Bedside Glucoseon 02-16-2025 FINGERSTICK GLU 216 mg/dL High 74-106 [facility] Comment on above: Result Comment: BRISA MOROCHO OF PATIENT CARE PER NURSING PROTOCOL Performed By: #### L 501.080 ####[facility] [address] [place], [place], [id number] Bilirubin directOrdered By: Jae Ash on 02-16-2025 Bilirubin.direct [Mass/Vol] 5.10 mg/dL High 0.00-0.30 [facility] Bilirubin, Directon 02-17-20 25 Bilirubin.direct [Mass/Vol] 5.10 mg/dL High 0.00-0.30 [facility] Comment on above: Performed By: #### L 504.2610, L501.4700 ####[facility] [address] [place], [address] Bilirubin, totalOrdered By: Jerald Sherwood on 02-16-2025 Bilirubin [Mass/Vol] 7.29 mg/dL High 0.00-1.30 [facility] CBC W/Diff, Automatedon 02-01 Absolute Lymph 1.28 X10 3/uL Normal 0.83-4.51 [facility] Comment on above: Performed By: #### L 100.0100, L500.4050, L3000.0375, L503.5510 ####[facility] [address] [place], [address] Absolute Neut 5.7 X10 3/uL Normal 2.0-7.7 [facility] Comment on above: Performed By: #### L 100.0100, L500.4050, L3000.0375, L503.5510 ####[facility] [address] [place], [address] Basophils/100 WBC (Bld) 0.5 % Normal 0-1 [facility] Comment on above: Performed By: #### L 100.0100, L500.4050, L3000.0375, L503.5510 ####[facility] [address] [place], [address] Eosinophils/100 WBC (Bld) 5.4 % High 0-5 [facility] Comment on above: Performed By: #### L 100.0100, L500.4050, L3000.0375, L503.5510 ####[facility] [address] [place], [address] Erythrocyte distribution width (RBC) [Ratio] 18.7 % High 11.6-14.6 [facility] Comment on above: Performed By: #### L 100.0100, L500.4050, L3000.0375, L503.5510 ####[facility] [address] [place], [address] Hematocrit (Bld) [Volume fraction] 24.8 % Low 40-54 [facility] Comment on above: Performed By: #### L 100.0100, L500.4050, L3000.0375, L503.5510 ####[facility] [address] [place], [address] Hemoglobin (Bld) [Mass/Vol] 8.2 g/dL Low 13.0-16.5 [facility] Comment on above: Performed By: #### L 100.0100, L500.4050, L3000.0375, L503.5510 ####[facility] [address] [place], [address] IG% 0.200 Normal 0.0-0.9 [facility] Comment on above: Result Comment: IG% - Immature Granulocytes (promyelocytes, myelocytes andmetamyelocytes) > 1% indicates that a LEFT SHIFT is Present. Performed By: #### L 100.0100, L500.4050, L3000.0375, L503.5510 ####[facility] [address] [place], [address] Lymphocytes/100 WBC (Bld) 15.1 % Low 19-41 [facility] Comment on above: Performed By: #### L 100.0100, L500.4050, L3000.0375, L503.5510 ####[facility] [address] [place], [address] MCH (RBC) [Entitic mass] 28.9 pg Normal 27.0-32.0 [facility] Comment on above: Performed By: #### L 100.0100, L500.4050, L3000.0375, L503.5510 ####[facility] [address] [place], [address] MCHC (RBC) [Mass/Vol] 33.1 g/dL Normal 32-36 [facility] Comment on above: Performed By: #### L 100.0100, L500.4050, L3000.0375, L503.5510 ####[facility] [address] [place], [address] MCV (RBC) [Entitic vol] 87.3 fL Normal 80-94 [facility] Comment on above: Performed By: #### L 100.0100, L500.4050, L3000.0375, L503.5510 ####[facility] [address] [place], [address] Monocytes/100 WBC (Bld) 11.7 % High 0-10 [facility] Comment on above: Performed By: #### L 100.0100, L500.4050, L3000.0375, L503.5510 ####[facility] [address] [place], [address] Neutrophils/100 WBC (Bld) 67.1 % Normal 47-70 [facility] Comment on above: Performed By: #### L 100.0100, L500.4050, L3000.0375, L503.5510 ####[facility] [address] [place], [address] Nucleated RBC (Bld) [#/Vol] 0 10*3/uL Normal 0-5 [facility] Comment on above: Performed By: #### L 100.0100, L500.4050, L3000.0375, L503.5510 ####[facility] [address] [place], [address] Platelet mean volume (Bld) [Entitic vol] 12.0 fL Normal 6.2-12.0 [facility] Comment on above: Performed By: #### L 100.0100, L500.4050, L3000.0375, L503.5510 ####[facility] [address] [place], [address] Platelets (Bld) [#/Vol] 106 10*3/uL Low 150-450 [facility] Comment on above: Performed By: #### L 100.0100, L500.4050, L3000.0375, L503.5510 ####[facility] [address] [place], [address] RBC (Bld) [#/Vol] 2.84 10*6/uL Low 4.6-6.2 [facility] Comment on above: Performed By: #### L 100.0100, L500.4050, L3000.0375, L503.5510 ####[facility] [address] [place], [address] RDW SD 53.5 fl High 35.1-43.9 [facility] Comment on above: Performed By: #### L 100.0100, L500.4050, L3000.0375, L503.5510 ####[facility] [address] [place], [address] WBC (Bld) [#/Vol] 8.5 10*3/uL Normal 4.4-11.0 [facility] Comment on above: Performed By: #### L 100.0100, L500.4050, L3000.0375, L503.5510 ####[facility] [address] [place], [address] Carbon dioxide, total [Moles /volume] in Central venous bloodOrdered By: Jerald Sherwood on 02-16-2025 CO2 [Moles/Vol] 24.1 mmol/L 21.0-32.0 [facility] Chloride assayOrdered By: Paulette Sherwood on 02-16-2025 Chloride [Moles/Vol] 99 mmol/L 98-108 [facility] Comprehensive Metabolic Prof ilon 02-16-2025 Albumin [Mass/Vol] 2.3 g/dL Low 3.5-5.0 [facility] Comment on above: Performed By: #### L 100.0100, L500.4050, L3000.0375, L503.5510 ####[facility] [address] [place], [address] Albumin/Globulin [Mass ratio] 0.7 {ratio} Low 0.9-2.4 [facility] Comment on above: Performed By: #### L 100.0100, L500.4050, L3000.0375, L503.5510 ####[facility] [address] [place], [address] ALK PHOS 310 U/L High 40-129 [facility] Comment on above: Performed By: #### L 100.0100, L500.4050, L3000.0375, L503.5510 ####[facility] [address] [place], [address] ALT [Catalytic activity/Vol] 51 U/L High <=46 [facility] Comment on above: Performed By: #### L 100.0100, L500.4050, L3000.0375, L503.5510 ####[facility] [address] [place], [address] AST [Catalytic activity/Vol] 109 U/L High <=37 [facility] Comment on above: Performed By: #### L 100.0100, L500.4050, L3000.0375, L503.5510 ####[facility] [address] [place], [address] Bilirubin [Mass/Vol] 7.29 mg/dL High 0.00-1.30 [facility] Comment on above: Performed By: #### L 100.0100, L500.4050, L3000.0375, L503.5510 ####[facility] [address] [place], [address] BUN/CRE 9.4 RATIO Low 10-20 [facility] Comment on above: Performed By: #### L 100.0100, L500.4050, L3000.0375, L503.5510 ####[facility] [address] [place], [address] Calcium [Mass/Vol] 7.8 mg/dL Normal 7.6-11.0 [facility] Comment on above: Performed By: #### L 100.0100, L500.4050, L3000.0375, L503.5510 ####[facility] [address] [place], [address] Chloride [Moles/Vol] 99 mmol/L Normal 98-108 [facility] Comment on above: Performed By: #### L 100.0100, L500.4050, L3000.0375, L503.5510 ####[facility] [address] [place], [address] CO2 [Moles/Vol] 24.1 mmol/L Normal 21.0-32.0 [facility] Comment on above: Performed By: #### L 100.0100, L500.4050, L3000.0375, L503.5510 ####[facility] [address] [place], [address] Creatinine [Mass/Vol] 1.30 mg/dL High 0.70-1.20 [facility] Comment on above: Result Comment: Icte daquan present, Results may be affected. Performed By: #### L 100.0100, L500.4050, L3000.0375, L503.5510 ####[facility] [address] [place], [address] GAP 12 Normal 5-15 [facility] Comment on above: Performed By: #### L 100.0100, L500.4050, L3000.0375, L503.5510 ####[facility] [address] [place], [address] GFR/1.73 sq M.predicted among non-blacks MDRD (S/P/Bld) [Vol rate/Area] 64 mL/min/{1.73_m2} Normal >60 [facility] Comment on above: Result Comment: mL/m in/1.73m2 CKD-EPI Creatinine Equation (2020) Performed By: #### L 100.0100, L500.4050, L3000.0375, L503.5510 ####[facility] [address] [place], [address] Globulin (S) [Mass/Vol] 3.5 g/dL Normal 2.2-4.2 [facility] Comment on above: Performed By: #### L 100.0100, L500.4050, L3000.0375, L503.5510 ####[facility] [address] [place], [address] Glucose [Mass/Vol] 250 mg/dL High 70-99 [facility] Comment on above: Performed By: #### L 100.0100, L500.4050, L3000.0375, L503.5510 ####[facility] [address] [place], [address] Potassium [Moles/Vol] 3.1 mmol/L Low 3.3-5.1 [facility] Comment on above: Performed By: #### L 100.0100, L500.4050, L3000.0375, L503.5510 ####[facility] [address] [place], [address] Sodium [Moles/Vol] 135 mmol/L Normal 133-145 [facility] Comment on above: Performed By: #### L 100.0100, L500.4050, L3000.0375, L503.5510 ####[facility] [address] [place], [address] T PROT 5.8 g/dL Low 5.9-8.4 [facility] Comment on above: Performed By: #### L 100.0100, L500.4050, L3000.0375, L503.5510 ####[facility] [address] [place], [place], [id number] Urea nitrogen [Mass/Vol] 12 mg/dL Normal 4-19 [facility] Comment on above: Performed By: #### L 100.0100, L500.4050, L3000.0375, L503.5510 ####[facility] [address] [place], [place], [id number] Emergency Department Summary on 02-16-2025 Emergency Department Summary Normal [facility] Eosinophil percentageOrdered By: Jerald Sherwood on 02-16-2025 Eosinophils/100 WBC (Bld) 5.4 % High 0-5 [facility] Erythrocyte distribution wid th ratioOrdered By: Jerald Sherwood on 02-16-2025 Erythrocyte distribution width (RBC) [Ratio] 18.7 % High 11.6-14.6 [facility] Erythrocyte distribution wid th standard deviationOrdered By: Jerald Sherwood on 02-16-2025 Erythrocyte distribution width (RBC) [Ratio] 53.5 fl High 35.1-43.9 [facility] Glomerular filtration rate ( GFR) estimation/1.73 sq m using serum, plasma, or whole bOrdered By: Jerald Sherwood on 02-16-2025 GFR/1.73 sq M.predicted among non-blacks MDRD (S/P/Bld) [Vol rate/Area] 64 mL/min/{1.73_m2} >60 [facility] H AND P Exam - Hospitaliston 02-16-2025 H&P Exam - Hospitalist Normal [facility] Hematocrit Auto (Bld) [Volum e fraction]Ordered By: Jerald Sherwood on 02-16-2025 Hematocrit (Bld) [Volume fraction] 24.8 % Low 40-54 [facility] Hemoglobin measurementOrdere d By: Jerald Sherwood on 02-16-2025 Hemoglobin (Bld) [Mass/Vol] 8.2 g/dL Low 13.0-16.5 [facility] Immature granulocytes/100 WB C Auto (Bld)Ordered By: Jerald Sherwood on 02-16-2025 Immature granulocytes/100 WBC (Bld) 0.200 % 0.0-0.9 [facility] LDHon 02-16-2025 LDH 273 U/L High 87-241 [facility] Comment on above: Performed By: #### L 504.2610, L501.4700 ####[facility] [address] [facility] [place], [place], [address] MCV (mean corpuscular volume ) determinationOrdered By: Jerald Sherwood on 02-16-2025 MCV (RBC) [Entitic vol] 87.3 fL 80-94 [facility] Magnesiumon 02-16-2025 Magnesium [Mass/Vol] 1.3 mg/dL Low 1.5-2.2 [facility] Comment on above: Performed By: #### L 501.2300, L501.5200 ####[facility] [address] [place], [place], [address] Magnesium measurement (mass/ volume)Ordered By: Jae Ash on 02-16-2025 Magnesium (Unsp spec) [Mass/Vol] 1.3 mg/dL Low 1.5-2.2 [facility] Mean corpuscular hemoglobin (MCH) determinationOrdered By: Jerald Sherwood on 02-16-2025 MCH (RBC) [Entitic mass] 28.9 pg 27.0-32.0 [facility] Monocyte percentageOrdered B y: Jerald Sherwood on 02-16-2025 Monocytes/100 WBC (Bld) 11.7 % High 0-10 [facility] Neutrophil percentageOrdered By: Jerald Sherwood on 02-16-2025 Neutrophils/100 WBC (Bld) 67.1 % 47-70 [facility] No Panel InformationOrdered By: Jerald Sherwood on 02-16-2025 109 U/L High <38 [facility] Comment . [facility] Phosphoruson 02-16-2025 Phosphate [Mass/Vol] 2.3 mg/dL Low 2.7-4.5 [facility] Comment on above: Performed By: #### L 501.2300, L501.5200 ####[facility] [address] [place], [address] Platelet countOrdered By: Paulette Sherwood on 02-16-2025 Platelets (Bld) [#/Vol] 106 10*3/uL Low 150-450 [facility] Potassium measurement (mass/ volume)Ordered By: Jerald Sherwood on 02-16-2025 Potassium (Unsp spec) [Mass/Vol] 3.1 mmol/L Low 3.3-5.1 [facility] Prothrombin Time w/INRon INR Coag (PPP) [Relative time] 1.8 {INR} Normal [facility] Comment on above: Performed By: #### L 300.3900 ####[facility] [address] [place], [address] PT Coag (PPP) [Time] 21.1 s High 11.7-14.9 [facility] Comment on above: Performed By: #### L 300.3900 ####[facility] [address] [place], [address] RBC Auto (Bld) [#/Vol]Ordere d By: Jerald Sherwood on 02-16-2025 RBC (Bld) [#/Vol] 2.84 10*6/uL Low 4.6-6.2 [facility] Serum creatinine measurement (mass/volume)Ordered By: Jerald Sherwood on 02-16-2025 Creatinine [Mass/Vol] 1.30 mg/dL High 0.70-1.20 [facility] Serum globulin measurementOr dered By: Jerald Sherwood on 02-16-2025 Globulin (S) [Mass/Vol] 3.5 g/dL 2.2-4.2 [facility] Serum glucose measurement (m ass/volume)Ordered By: Jerald Sherwood on 02-16-2025 Glucose [Mass/Vol] 250 mg/dL High 70-99 [facility] Serum or plasma alanine thomas otransferase (ALT) measurementOrdered By: Jerald Sherwood on 02-16-2025 ALT [Catalytic activity/Vol] 51 U/L High <47 [facility] Serum or plasma albumin roosevelt urement (mass/volume)Ordered By: Jerald Sherwood on 02-16-2025 Albumin [Mass/Vol] 2.3 g/dL Low 3.5-5.0 [facility] Serum or plasma albumin/glob ulin mass ratioOrdered By: Jerald Sherwood on 02-16-2025 Albumin/Globulin [Mass ratio] 0.7 {ratio} Low 0.9-2.4 [facility] Serum or plasma alkaline kendrick sphatase measurementOrdered By: Jerald Sherwood on 02-16-2025 ALP [Catalytic activity/Vol] 310 U/L High 40-129 [facility] Serum or plasma calcium roosevelt urement (mass/volume)Ordered By: Jerald Sherwood on 02-16-2025 Calcium [Mass/Vol] 7.8 mg/dL 7.6-11.0 [facility] Serum or plasma hepatitis B virus surface antigen detection by immunoassayOrdered By: Jerald Sherwood on 02-16-2025 HBV surface Ag IA Ql Negative Negative [facility] Serum or plasma urea nitroge n measurement (mass/volume)Ordered By: Jerald Sherwood on 02-16-2025 Urea nitrogen [Mass/Vol] 12 mg/dL 4-19 [facility] Sodium levelOrdered By: Jerald Sherwood on 02-16-2025 Sodium [Moles/Vol] 135 mmol/L 133-145 [facility] Total proteinOrdered By: Candie Sherwood on 02-16-2025 Protein [Mass/Vol] 5.8 g/dL Low 5.9-8.4 [facility] Venous blood ammonia measure mentOrdered By: Jerald Sherwood on 02-16-2025 Ammonia (P) [Moles/Vol] 88.0 umol/L High 16-60 [facility] Comment on above: Performed By: #### L 100.0100, L500.4050, L3000.0375, L503.5510 ####[facility] [address] [place], [address] White blood cell (WBC) count Ordered By: Jerald Sherwood on 02-16-2025 WBC (Bld) [#/Vol] 8.5 10*3/uL 4.4-11.0 [facility] Abdomen/Pelvis W IV Cont ONL Yon 02-13-2025 Abdomen/Pelvis W IV Cont ONLY Normal [facility] Absolute lymphocyte countOrd ered By: Luis Carlos Anderson on 02-13-2025 Lymphocytes Auto (Unsp spec) [#/Vol] 1.20 10*3/uL 0.83-4.51 [facility] Anion gap in Serum or Plasma Ordered By: Luis Carlos Anderson on 02-13-2025 Anion gap [Moles/Vol] 14 mmol/L 5-15 [facility] Automated lymphocyte count a s percentage of total leukocytesOrdered By: Luis Carlos Anderson on 02-13-2025 Lymphocytes/100 WBC Auto (Unsp spec) 13.9 % Low 19- [facility] BUN/creatinine ratioOrdered By: Luis Carlos Anderson on 02-13-2025 Urea nitrogen/Creatinine [Mass ratio] 14.3 mg/mg 10- [facility] Basophil percentageOrdered B y: Luis Carlos Anderson on 02-13-2025 Basophils/100 WBC (Bld) 0.3 % 0-1 [facility] Bilirubin, totalOrdered By: Luis Carlos Anderson on 02-13-2025 Bilirubin [Mass/Vol] 6.20 mg/dL High 0.00-1.30 [facility] Blood manual differential co mment interpretation (narrative result)Ordered By: Luis Carlos Anderson on 02-13-2025 Manual differential comment Marco Antonio (Bld) [Interp] SCANNED [facility] CBC W/Diff, Automatedon 02-01 PLT EST MOD DEC Normal ADEQ [facility] Comment on above: Performed By: #### L 100.0100, L500.4050, L501.2450 ####[facility] [address] [place], [address] Platelet mean volume (Bld) [Entitic vol] 10.8 fL Normal 6.2-12.0 [facility] Comment on above: Performed By: #### L 100.0100, L500.4050, L501.2450 ####[facility] [address] [place], [address] Platelets (Bld) [#/Vol] 83 10*3/uL Low 150-450 [facility] Comment on above: Result Comment: NO C LUMPING SEEN Performed By: #### L 100.0100, L500.4050, L501.2450 ####[facility] [address] [place], [address] SMEAR COMMENT SCANNED Normal [facility] Comment on above: Performed By: #### L 100.0100, L500.4050, L501.2450 ####[facility] [address] [place], [address] Carbon dioxide, total [Moles /volume] in Central venous bloodOrdered By: Luis Carlos Anderson on 02-13-2025 CO2 [Moles/Vol] 18.4 mmol/L Low 21.0-32.0 [facility] Chloride assayOrdered By: Yaya Anderson on 02-13-2025 Chloride [Moles/Vol] 102 mmol/L 98-108 [facility] Comprehensive Metabolic Prof ilon 02-13-2025 Albumin [Mass/Vol] 2.2 g/dL Low 3.5-5.0 [facility] Comment on above: Performed By: #### L 100.0100, L500.4050, L501.2450 ####[facility] [address] [place], [address] Albumin/Globulin [Mass ratio] 0.6 {ratio} Low 0.9-2.4 [facility] Comment on above: Performed By: #### L 100.0100, L500.4050, L501.2450 ####[facility] [address] [place], [address] ALK PHOS 335 U/L High 40-129 [facility] Comment on above: Performed By: #### L 100.0100, L500.4050, L501.2450 ####[facility] [address] [place], [address] ALT [Catalytic activity/Vol] 53 U/L High <=46 [facility] Comment on above: Performed By: #### L 100.0100, L500.4050, L501.2450 ####[facility] [address] [place], [address] AST [Catalytic activity/Vol] 120 U/L High <=37 [facility] Comment on above: Performed By: #### L 100.0100, L500.4050, L501.2450 ####[facility] [address] [place], [address] Bilirubin [Mass/Vol] 6.20 mg/dL High 0.00-1.30 [facility] Comment on above: Performed By: #### L 100.0100, L500.4050, L501.2450 ####[facility] [address] [place], [address] BUN/CRE 14.3 RATIO Normal 10-20 [facility] Comment on above: Performed By: #### L 100.0100, L500.4050, L501.2450 ####[facility] [address] [place], [address] Calcium [Mass/Vol] 8.3 mg/dL Normal 7.6-11.0 [facility] Comment on above: Performed By: #### L 100.0100, L500.4050, L501.2450 ####[facility] [address] [place], [address] Chloride [Moles/Vol] 102 mmol/L Normal 98-108 [facility] Comment on above: Performed By: #### L 100.0100, L500.4050, L501.2450 ####[facility] [address] [place], [address] CO2 [Moles/Vol] 18.4 mmol/L Low 21.0-32.0 [facility] Comment on above: Performed By: #### L 100.0100, L500.4050, L501.2450 ####[facility] [address] [place], [address] Creatinine [Mass/Vol] 1.78 mg/dL High 0.70-1.20 [facility] Comment on above: Result Comment: Icte daquan present, Results may be affected. Performed By: #### L 100.0100, L500.4050, L501.2450 ####[facility] [address] [place], [address] ECRCL 53.12 ml/min Normal 50-250 [facility] Comment on above: Performed By: #### L 100.0100, L500.4050, L501.2450 ####[facility] [address] [place], [address] GAP 14 Normal 5-15 [facility] Comment on above: Performed By: #### L 100.0100, L500.4050, L501.2450 ####[facility] [address] [place], [address] GFR/1.73 sq M.predicted among non-blacks MDRD (S/P/Bld) [Vol rate/Area] 44 mL/min/{1.73_m2} Low >60 [facility] Comment on above: Result Comment: mL/m in/1.73m2 CKD-EPI Creatinine Equation (2020) Performed By: #### L 100.0100, L500.4050, L501.2450 ####[facility] [address] [place], [address] Globulin (S) [Mass/Vol] 3.7 g/dL Normal 2.2-4.2 [facility] Comment on above: Performed By: #### L 100.0100, L500.4050, L501.2450 ####[facility] [address] [place], [address] Glucose [Mass/Vol] 169 mg/dL High 70-99 [facility] Comment on above: Performed By: #### L 100.0100, L500.4050, L501.2450 ####[facility] [address] [place], [address] Potassium [Moles/Vol] 3.4 mmol/L Normal 3.3-5.1 [facility] Comment on above: Result Comment: Hemo lysis present, Results??could be affected.?? Performed By: #### L 100.0100, L500.4050, L501.2450 ####[facility] [address] [place], [address] Sodium [Moles/Vol] 135 mmol/L Normal 133-145 [facility] Comment on above: Performed By: #### L 100.0100, L500.4050, L501.2450 ####[facility] [address] [place], [address] T PROT 5.8 g/dL Low 5.9-8.4 [facility] Comment on above: Performed By: #### L 100.0100, L500.4050, L501.2450 ####[facility] [address] [place], [address] Urea nitrogen [Mass/Vol] 25 mg/dL High 4-19 [facility] Comment on above: Performed By: #### L 100.0100, L500.4050, L501.2450 ####[facility] [address] [place], [address] Emergency Department Summary on 02-13-2025 Emergency Department Summary Normal [facility] Eosinophil percentageOrdered By: Luis Carlos Anderson on 02-13-2025 Eosinophils/100 WBC (Bld) 5.1 % High 0-5 [facility] Erythrocyte distribution wid th ratioOrdered By: Luis Carlos Anderson on 02-13-2025 Erythrocyte distribution width (RBC) [Ratio] 17.4 % High 11.6-14.6 [facility] Erythrocyte distribution wid th standard deviationOrdered By: Luis Carlos Anderson on 02-13-2025 Erythrocyte distribution width (RBC) [Ratio] 52.3 fl High 35.1-43.9 [facility] Glomerular filtration rate ( GFR) estimation/1.73 sq m using serum, plasma, or whole bOrdered By: Luis Carlos Anderson on 02-13-2025 GFR/1.73 sq M.predicted among non-blacks MDRD (S/P/Bld) [Vol rate/Area] 44 mL/min/{1.73_m2} Low >60 [facility] Hematocrit Auto (Bld) [Volum e fraction]Ordered By: Luis Carlos Anderson on 02-13-2025 Hematocrit (Bld) [Volume fraction] 24.1 % Low 40-54 [facility] Hemoglobin measurementOrdere d By: Luis Carlos Anderson on 02-13-2025 Hemoglobin (Bld) [Mass/Vol] 8.3 g/dL Low 13.0-16.5 [facility] Immature granulocytes/100 WB C Auto (Bld)Ordered By: Luis Carlos Anderson on 02-13-2025 Immature granulocytes/100 WBC (Bld) 0.500 % 0.0-0.9 [facility] Lipaseon 02-13-2025 Lipase [Catalytic activity/Vol] 60 U/L Normal 13-75 [facility] Comment on above: Result Comment: Siddhartha bhat note:LIPASE revised reference range effective 22.New Lipase methodology. Expected to produce lower valuesthan the previous assay method.NEW Reference Range: 13 - 75 U/L Performed By: #### L 100.0100, L500.4050, L501.2450 ####[facility] [address] [place], [address] MCV (mean corpuscular volume ) determinationOrdered By: Luis Carlos Anderson on 02-13-2025 MCV (RBC) [Entitic vol] 84.9 fL 80-94 [facility] Mean corpuscular hemoglobin (MCH) determinationOrdered By: Luis Carlos Anderson on 02-13-2025 MCH (RBC) [Entitic mass] 29.2 pg 27.0-32.0 [facility] Monocyte percentageOrdered B y: Luis Carlos Anderson on 02-13-2025 Monocytes/100 WBC (Bld) 16.1 % High 0-10 [facility] Neutrophil percentageOrdered By: Luis Carlos Anderson on 02-13-2025 Neutrophils/100 WBC (Bld) 64.1 % 47-70 [facility] No Panel InformationOrdered By: Luis Carlos Anderson on 02-13-2025 120 U/L High <38 [facility] Platelet countOrdered By: Yaya Anderson on 02-13-2025 Platelets (Bld) [#/Vol] 83 10*3/uL Low 150-450 [facility] Platelet estimateOrdered By: Luis Carlos Anderson on 02-13-2025 Platelets LM Ql (Bld) MOD DEC ADEQ [facility] Potassium measurement (mass/ volume)Ordered By: Luis Carlos Anderson on 02-13-2025 Potassium (Unsp spec) [Mass/Vol] 3.4 mmol/L 3.3-5.1 [facility] RBC Auto (Bld) [#/Vol]Ordere d By: Luis Carlos Anderson on 02-13-2025 RBC (Bld) [#/Vol] 2.84 10*6/uL Low 4.6-6.2 [facility] Serum creatinine measurement (mass/volume)Ordered By: Luis Carlos Anderson on 02-13-2025 Creatinine [Mass/Vol] 1.78 mg/dL High 0.70-1.20 [facility] Serum globulin measurementOr dered By: Luis Carlos Anderson on 02-13-2025 Globulin (S) [Mass/Vol] 3.7 g/dL 2.2-4.2 [facility] Serum glucose measurement (m ass/volume)Ordered By: Luis Carlos Anderson on 02-13-2025 Glucose [Mass/Vol] 169 mg/dL High 70-99 [facility] Serum or plasma alanine thomas otransferase (ALT) measurementOrdered By: Luis Carlos Anderson on 02-13-2025 ALT [Catalytic activity/Vol] 53 U/L High <47 [facility] Serum or plasma albumin roosevelt urement (mass/volume)Ordered By: Luis Carlos Anderson on 02-13-2025 Albumin [Mass/Vol] 2.2 g/dL Low 3.5-5.0 [facility] Serum or plasma albumin/glob ulin mass ratioOrdered By: Luis Carlos Anderson on 02-13-2025 Albumin/Globulin [Mass ratio] 0.6 {ratio} Low 0.9-2.4 [facility] Serum or plasma alkaline kendrick sphatase measurementOrdered By: Luis Carlos Anderson on 02-13-2025 ALP [Catalytic activity/Vol] 335 U/L High 40-129 [facility] Serum or plasma calcium roosevelt urement (mass/volume)Ordered By: Luis Carlos Anderson on 02-13-2025 Calcium [Mass/Vol] 8.3 mg/dL 7.6-11.0 [facility] Serum or plasma urea nitroge n measurement (mass/volume)Ordered By: Luis Carlos Anderson on 02-13-2025 Urea nitrogen [Mass/Vol] 25 mg/dL High 4-19 [facility] Sodium levelOrdered By: Yunior Anderson on 02-13-2025 Sodium [Moles/Vol] 135 mmol/L 133-145 [facility] Total proteinOrdered By: Joann Anderson on 02-13-2025 Protein [Mass/Vol] 5.8 g/dL Low 5.9-8.4 [facility] White blood cell (WBC) count Ordered By: Luis Carlos Anderson on 02-13-2025 WBC (Bld) [#/Vol] 8.6 10*3/uL 4.4-11.0 [facility] Operative Reporton Operative Report Normal [facility] Paracentesis with USon 02-11 Paracentesis with US Normal [facility] Emergency Department Summary on 02-08-2025 Emergency Department Summary Normal [facility] Abdomen/Pelvis W IV Cont ONL Yon 02-07-2025 Abdomen/Pelvis W IV Cont ONLY Normal [facility] Absolute lymphocyte countOrd ered By: ED PROVIDER on 02-07-2025 Lymphocytes Auto (Unsp spec) [#/Vol] 1.39 10*3/uL 0.83-4.51 [facility] Anion gap in Serum or Plasma Ordered By: ED PROVIDER on 02-07-2025 Anion gap [Moles/Vol] 9 mmol/L 5-15 [facility] Automated lymphocyte count a s percentage of total leukocytesOrdered By: ED PROVIDER on 02-07-2025 Lymphocytes/100 WBC Auto (Unsp spec) 12.8 % Low 19-41 [facility] BUN/creatinine ratioOrdered By: ED PROVIDER on 02-07-2025 Urea nitrogen/Creatinine [Mass ratio] 13.9 mg/mg 10-20 [facility] Basophil percentageOrdered B y: ED PROVIDER on 02-07-2025 Basophils/100 WBC (Bld) 0.5 % 0-1 [facility] Bilirubin, totalOrdered By: ED PROVIDER on 02-07-2025 Bilirubin [Mass/Vol] 1.92 mg/dL High 0.00-1.30 [facility] CBC W/Diff, Automatedon 07-0 Absolute Lymph 1.39 X10 3/uL Normal 0.83-4.51 [facility] Comment on above: Performed By: #### L 100.0100, L501.2450, L500.4050 ####[facility] [address] [place], [address] Absolute Neut 7.9 X10 3/uL High 2.0-7.7 [facility] Comment on above: Performed By: #### L 100.0100, L501.2450, L500.4050 ####[facility] [address] [place], [address] Basophils/100 WBC (Bld) 0.5 % Normal 0-1 [facility] Comment on above: Performed By: #### L 100.0100, L501.2450, L500.4050 ####[facility] [address] [place], [address] Eosinophils/100 WBC (Bld) 5.4 % High 0-5 [facility] Comment on above: Performed By: #### L 100.0100, L501.2450, L500.4050 ####[facility] [address] [place], [address] Erythrocyte distribution width (RBC) [Ratio] 17.9 % High 11.6-14.6 [facility] Comment on above: Performed By: #### L 100.0100, L501.2450, L500.4050 ####[facility] [address] [place], [address] Hematocrit (Bld) [Volume fraction] 28.8 % Low 40-54 [facility] Comment on above: Performed By: #### L 100.0100, L501.2450, L500.4050 ####[facility] [address] [place], [address] Hemoglobin (Bld) [Mass/Vol] 9.2 g/dL Low 13.0-16.5 [facility] Comment on above: Performed By: #### L 100.0100, L501.2450, L500.4050 ####[facility] [address] [place], [address] IG% 0.400 Normal 0.0-0.9 [facility] Comment on above: Result Comment: IG% - Immature Granulocytes (promyelocytes, myelocytes andmetamyelocytes) > 1% indicates that a LEFT SHIFT is Present. Performed By: #### L 100.0100, L501.2450, L500.4050 ####[facility] [address] [place], [address] Lymphocytes/100 WBC (Bld) 12.8 % Low 19-41 [facility] Comment on above: Performed By: #### L 100.0100, L501.2450, L500.4050 ####[facility] [address] [place], [address] MCH (RBC) [Entitic mass] 29.0 pg Normal 27.0-32.0 [facility] Comment on above: Performed By: #### L 100.0100, L501.2450, L500.4050 ####[facility] [address] [place], [address] MCHC (RBC) [Mass/Vol] 31.9 g/dL Low 32-36 [facility] Comment on above: Performed By: #### L 100.0100, L501.2450, L500.4050 ####[facility] [address] [place], [address] MCV (RBC) [Entitic vol] 90.9 fL Normal 80-94 [facility] Comment on above: Performed By: #### L 100.0100, L501.2450, L500.4050 ####[facility] [address] [place], [address] Monocytes/100 WBC (Bld) 8.1 % Normal 0-10 [facility] Comment on above: Performed By: #### L 100.0100, L501.2450, L500.4050 ####[facility] [address] [place], [address] Neutrophils/100 WBC (Bld) 72.8 % High 47-70 [facility] Comment on above: Performed By: #### L 100.0100, L501.2450, L500.4050 ####[facility] [address] [place], [address] Nucleated RBC (Bld) [#/Vol] 0 10*3/uL Normal 0-5 [facility] Comment on above: Performed By: #### L 100.0100, L501.2450, L500.4050 ####[facility] [address] [place], [address] Platelet mean volume (Bld) [Entitic vol] 10.1 fL Normal 6.2-12.0 [facility] Comment on above: Performed By: #### L 100.0100, L501.2450, L500.4050 ####[facility] [address] [place], [address] Platelets (Bld) [#/Vol] 131 10*3/uL Low 150-450 [facility] Comment on above: Performed By: #### L 100.0100, L501.2450, L500.4050 ####[facility] [address] [place], [address] RBC (Bld) [#/Vol] 3.17 10*6/uL Low 4.6-6.2 [facility] Comment on above: Performed By: #### L 100.0100, L501.2450, L500.4050 ####[facility] [address] [place], [address] RDW SD 58.3 fl High 35.1-43.9 [facility] Comment on above: Performed By: #### L 100.0100, L501.2450, L500.4050 ####[facility] [address] [place], [address] WBC (Bld) [#/Vol] 10.8 10*3/uL Normal 4.4-11.0 [facility] Comment on above: Performed By: #### L 100.0100, L501.2450, L500.4050 ####[facility] [address] [place], [address] Carbon dioxide, total [Moles /volume] in Central venous bloodOrdered By: ED PROVIDER on 02-07-2025 CO2 [Moles/Vol] 22.7 mmol/L 21.0-32.0 [facility] Chloride assayOrdered By: ED PROVIDER on 02-07-2025 Chloride [Moles/Vol] 106 mmol/L 98-108 [facility] Comprehensive Metabolic Prof ilon 02-07-2025 Albumin [Mass/Vol] 2.2 g/dL Low 3.5-5.0 [facility] Comment on above: Performed By: #### L 100.0100, L501.2450, L500.4050 ####[facility] [address] [place], [address] Albumin/Globulin [Mass ratio] 0.6 {ratio} Low 0.9-2.4 [facility] Comment on above: Performed By: #### L 100.0100, L501.2450, L500.4050 ####[facility] [address] [place], [address] ALK PHOS 218 U/L High 40-129 [facility] Comment on above: Performed By: #### L 100.0100, L501.2450, L500.4050 ####[facility] [address] [place], [address] ALT [Catalytic activity/Vol] 30 U/L Normal <=46 [facility] Comment on above: Performed By: #### L 100.0100, L501.2450, L500.4050 ####[facility] [address] [place], [address] AST [Catalytic activity/Vol] 55 U/L High <=37 [facility] Comment on above: Performed By: #### L 100.0100, L501.2450, L500.4050 ####[facility] [address] [place], [address] Bilirubin [Mass/Vol] 1.92 mg/dL High 0.00-1.30 [facility] Comment on above: Performed By: #### L 100.0100, L501.2450, L500.4050 ####[facility] [address] [place], [address] BUN/CRE 13.9 RATIO Normal 10-20 [facility] Comment on above: Performed By: #### L 100.0100, L501.2450, L500.4050 ####[facility] [address] [place], [address] Calcium [Mass/Vol] 8.4 mg/dL Normal 7.6-11.0 [facility] Comment on above: Performed By: #### L 100.0100, L501.2450, L500.4050 ####[facility] [address] [place], [address] Chloride [Moles/Vol] 106 mmol/L Normal 98-108 [facility] Comment on above: Performed By: #### L 100.0100, L501.2450, L500.4050 ####[facility] [address] [place], [address] CO2 [Moles/Vol] 22.7 mmol/L Normal 21.0-32.0 [facility] Comment on above: Performed By: #### L 100.0100, L501.2450, L500.4050 ####[facility] [address] [place], [address] Creatinine [Mass/Vol] 1.05 mg/dL Normal 0.70-1.20 [facility] Comment on above: Performed By: #### L 100.0100, L501.2450, L500.4050 ####[facility] [address] [place], [address] GAP 9 Normal 5-15 [facility] Comment on above: Performed By: #### L 100.0100, L501.2450, L500.4050 ####[facility] [address] [place], [address] GFR/1.73 sq M.predicted among non-blacks MDRD (S/P/Bld) [Vol rate/Area] 82 mL/min/{1.73_m2} Normal >60 [facility] Comment on above: Result Comment: mL/m in/1.73m2 CKD-EPI Creatinine Equation (2020) Performed By: #### L 100.0100, L501.2450, L500.4050 ####[facility] [address] [place], [address] Globulin (S) [Mass/Vol] 3.5 g/dL Normal 2.2-4.2 [facility] Comment on above: Performed By: #### L 100.0100, L501.2450, L500.4050 ####[facility] [address] [place], [address] Glucose [Mass/Vol] 142 mg/dL High 70-99 [facility] Comment on above: Performed By: #### L 100.0100, L501.2450, L500.4050 ####[facility] [address] [place], [address] Potassium [Moles/Vol] 3.7 mmol/L Normal 3.3-5.1 [facility] Comment on above: Performed By: #### L 100.0100, L501.2450, L500.4050 ####[facility] [address] [place], [address] Sodium [Moles/Vol] 137 mmol/L Normal 133-145 [facility] Comment on above: Performed By: #### L 100.0100, L501.2450, L500.4050 ####[facility] [address] [place], [address] T PROT 5.8 g/dL Low 5.9-8.4 [facility] Comment on above: Performed By: #### L 100.0100, L501.2450, L500.4050 ####[facility] [address] [place], [address] Urea nitrogen [Mass/Vol] 15 mg/dL Normal 4-19 [facility] Comment on above: Performed By: #### L 100.0100, L501.2450, L500.4050 ####[facility] [address] [place], [address] Eosinophil percentageOrdered By: ED PROVIDER on 02-07-2025 Eosinophils/100 WBC (Bld) 5.4 % High 0-5 [facility] Erythrocyte distribution wid th ratioOrdered By: ED PROVIDER on 02-07-2025 Erythrocyte distribution width (RBC) [Ratio] 17.9 % High 11.6-14.6 [facility] Erythrocyte distribution wid th standard deviationOrdered By: ED PROVIDER on 02-07-2025 Erythrocyte distribution width (RBC) [Ratio] 58.3 fl High 35.1-43.9 [facility] Glomerular filtration rate ( GFR) estimation/1.73 sq m using serum, plasma, or whole bOrdered By: ED PROVIDER on 02-07-2025 GFR/1.73 sq M.predicted among non-blacks MDRD (S/P/Bld) [Vol rate/Area] 82 mL/min/{1.73_m2} >60 [facility] Hematocrit Auto (Bld) [Volum e fraction]Ordered By: ED PROVIDER on 02-07-2025 Hematocrit (Bld) [Volume fraction] 28.8 % Low 40-54 [facility] Hemoglobin measurementOrdere d By: ED PROVIDER on 02-07-2025 Hemoglobin (Bld) [Mass/Vol] 9.2 g/dL Low 13.0-16.5 [facility] Immature granulocytes/100 WB C Auto (Bld)Ordered By: ED PROVIDER on 02-07-2025 Immature granulocytes/100 WBC (Bld) 0.400 % 0.0-0.9 [facility] Lipaseon 02-07-2025 Lipase [Catalytic activity/Vol] 35 U/L Normal 13-75 [facility] Comment on above: Result Comment: Siddhartha bhat note:LIPASE revised reference range effective 23.New Lipase methodology. Expected to produce lower valuesthan the previous assay method.NEW Reference Range: 13 - 75 U/L Performed By: #### L 100.0100, L501.2450, L500.4050 ####[facility] [address] [place], [address] MCV (mean corpuscular volume ) determinationOrdered By: ED PROVIDER on 02-07-2025 MCV (RBC) [Entitic vol] 90.9 fL 80-94 [facility] Mean corpuscular hemoglobin (MCH) determinationOrdered By: ED PROVIDER on 02-07-2025 MCH (RBC) [Entitic mass] 29.0 pg 27.0-32.0 [facility] Monocyte percentageOrdered B y: ED PROVIDER on 02-07-2025 Monocytes/100 WBC (Bld) 8.1 % 0-10 [facility] Neutrophil percentageOrdered By: ED PROVIDER on 02-07-2025 Neutrophils/100 WBC (Bld) 72.8 % High 47-70 [facility] No Panel InformationOrdered By: ED PROVIDER on 02-07-2025 55 U/L High <38 [facility] Platelet countOrdered By: ED PROVIDER on 02-07-2025 Platelets (Bld) [#/Vol] 131 10*3/uL Low 150-450 [facility] Potassium measurement (mass/ volume)Ordered By: ED PROVIDER on 02-07-2025 Potassium (Unsp spec) [Mass/Vol] 3.7 mmol/L 3.3-5.1 [facility] RBC Auto (Bld) [#/Vol]Ordere d By: ED PROVIDER on 02-07-2025 RBC (Bld) [#/Vol] 3.17 10*6/uL Low 4.6-6.2 [facility] Serum creatinine measurement (mass/volume)Ordered By: ED PROVIDER on 02-07-2025 Creatinine [Mass/Vol] 1.05 mg/dL 0.70-1.20 [facility] Serum globulin measurementOr dered By: ED PROVIDER on 02-07-2025 Globulin (S) [Mass/Vol] 3.5 g/dL 2.2-4.2 [facility] Serum glucose measurement (m ass/volume)Ordered By: ED PROVIDER on 02-07-2025 Glucose [Mass/Vol] 142 mg/dL High 70-99 [facility] Serum or plasma alanine thomas otransferase (ALT) measurementOrdered By: ED PROVIDER on 02-07-2025 ALT [Catalytic activity/Vol] 30 U/L <47 [facility] Serum or plasma albumin roosevelt urement (mass/volume)Ordered By: ED PROVIDER on 02-07-2025 Albumin [Mass/Vol] 2.2 g/dL Low 3.5-5.0 [facility] Serum or plasma albumin/glob ulin mass ratioOrdered By: ED PROVIDER on 02-07-2025 Albumin/Globulin [Mass ratio] 0.6 {ratio} Low 0.9-2.4 [facility] Serum or plasma alkaline kendrick sphatase measurementOrdered By: ED PROVIDER on 02-07-2025 ALP [Catalytic activity/Vol] 218 U/L High 40-129 [facility] Serum or plasma calcium roosevelt urement (mass/volume)Ordered By: ED PROVIDER on 02-07-2025 Calcium [Mass/Vol] 8.4 mg/dL 7.6-11.0 [facility] Serum or plasma urea nitroge n measurement (mass/volume)Ordered By: ED PROVIDER on 02-07-2025 Urea nitrogen [Mass/Vol] 15 mg/dL 4-19 [facility] Sodium levelOrdered By: ED Kieran NUNEZ on 02-07-2025 Sodium [Moles/Vol] 137 mmol/L 133-145 [facility] Total proteinOrdered By: ED PROVIDER on 02-07-2025 Protein [Mass/Vol] 5.8 g/dL Low 5.9-8.4 [facility] White blood cell (WBC) count Ordered By: ED PROVIDER on 02-07-2025 WBC (Bld) [#/Vol] 10.8 10*3/uL 4.4-11.0 [facility] Culture, Blood (WB)on 2024 CUB Blood cultures x2, f rom two different sites No growth in 5 days. Normal [facility] Comment on above: Performed By: #### M 200.1000 ####[facility] [address] [place], [address] Anion gap in Serum or Plasma Ordered By: Yaritza Leo on 01-31-2025 Anion gap [Moles/Vol] 9 mmol/L - [facility] BUN/creatinine ratioOrdered By: Yaritza Leo on 01-31-2025 Urea nitrogen/Creatinine [Mass ratio] 10.7 mg/mg - [facility] Basic Metabolic Profile (BMP )on 01-31-2025 BUN/CRE 10.7 RATIO Normal - [facility] Comment on above: Performed By: #### L 500.2500, L100.0500 ####[facility] [address] [place], [address] Calcium [Mass/Vol] 8.5 mg/dL Normal 7.6-11.0 [facility] Comment on above: Performed By: #### L 500.2500, L100.0500 ####[facility] [address] [place], [address] Chloride [Moles/Vol] 102 mmol/L Normal 98-108 [facility] Comment on above: Performed By: #### L 500.2500, L100.0500 ####[facility] [address] [place], [address] CO2 [Moles/Vol] 22.6 mmol/L Normal 21.0-32.0 [facility] Comment on above: Performed By: #### L 500.2500, L100.0500 ####[facility] [address] [place], [address] Creatinine [Mass/Vol] 0.95 mg/dL Normal 0.70-1.20 [facility] Comment on above: Performed By: #### L 500.2500, L100.0500 ####[facility] [address] [place], [address] ECRCL 108.71 ml/min Normal 50-250 [facility] Comment on above: Performed By: #### L 500.2500, L100.0500 ####[facility] [address] [place], [address] GAP 9 Normal 5-15 [facility] Comment on above: Performed By: #### L 500.2500, L100.0500 ####[facility] [address] [place], [address] GFR/1.73 sq M.predicted among non-blacks MDRD (S/P/Bld) [Vol rate/Area] 93 mL/min/{1.73_m2} Normal >60 [facility] Comment on above: Result Comment: mL/m in/1.73m2 CKD-EPI Creatinine Equation (2020) Performed By: #### L 500.2500, L100.0500 ####[facility] [address] [place], [address] Glucose [Mass/Vol] 143 mg/dL High 70-99 [facility] Comment on above: Performed By: #### L 500.2500, L100.0500 ####[facility] [address] [place], [address] Potassium [Moles/Vol] 3.9 mmol/L Normal 3.3-5.1 [facility] Comment on above: Performed By: #### L 500.2500, L100.0500 ####[facility] [address] [place], [address] Sodium [Moles/Vol] 133 mmol/L Normal 133-145 [facility] Comment on above: Performed By: #### L 500.2500, L100.0500 ####[facility] [address] [place], [address] Urea nitrogen [Mass/Vol] 10 mg/dL Normal 4-19 [facility] Comment on above: Performed By: #### L 500.2500, L100.0500 ####[facility] [address] [place], [address] Bedside Glucoseon 01-31-2025 FINGERSTICK GLU 129 mg/dL High 74-106 [facility] Comment on above: Result Comment: BRISA GEMENT OF PATIENT CARE PER NURSING PROTOCOL Performed By: #### L 501.080 ####[facility] [address] [place], [address] FINGERSTICK GLU 179 mg/dL High 74-106 [facility] Comment on above: Result Comment: BRISA GEMENT OF PATIENT CARE PER NURSING PROTOCOL Performed By: #### L 501.080 ####[facility] [address] [place], [address] FINGERSTICK GLU 149 mg/dL High 74-106 [facility] Comment on above: Result Comment: BRISA GEMENT OF PATIENT CARE PER NURSING PROTOCOL Performed By: #### L 501.080 ####[facility] [address] [place], [address] CBC-Complete Blood Cnt No Di ffon 01-31-2025 Erythrocyte distribution width (RBC) [Ratio] 17.7 % High 11.6-14.6 [facility] Comment on above: Performed By: #### L 500.2500, L100.0500 ####[facility] [address] [place], [address] Hematocrit (Bld) [Volume fraction] 23.8 % Low 40-54 [facility] Comment on above: Performed By: #### L 500.2500, L100.0500 ####[facility] [address] [place], [address] Hemoglobin (Bld) [Mass/Vol] 7.9 g/dL Low 13.0-16.5 [facility] Comment on above: Performed By: #### L 500.2500, L100.0500 ####[facility] [address] [place], [address] MCH (RBC) [Entitic mass] 29.8 pg Normal 27.0-32.0 [facility] Comment on above: Performed By: #### L 500.2500, L100.0500 ####[facility] [address] [place], [address] MCHC (RBC) [Mass/Vol] 33.2 g/dL Normal 32-36 [facility] Comment on above: Performed By: #### L 500.2500, L100.0500 ####[facility] [address] [place], [address] MCV (RBC) [Entitic vol] 89.8 fL Normal 80-94 [facility] Comment on above: Performed By: #### L 500.2500, L100.0500 ####[facility] [address] [place], [address] Platelet mean volume (Bld) [Entitic vol] 10.6 fL Normal 6.2-12.0 [facility] Comment on above: Performed By: #### L 500.2500, L100.0500 ####[facility] [address] [place], [address] Platelets (Bld) [#/Vol] 108 10*3/uL Low 150-450 [facility] Comment on above: Performed By: #### L 500.2500, L100.0500 ####[facility] [address] [place], [address] RBC (Bld) [#/Vol] 2.65 10*6/uL Low 4.6-6.2 [facility] Comment on above: Performed By: #### L 500.2500, L100.0500 ####[facility] [address] [place], [address] RDW SD 56.9 fl High 35.1-43.9 [facility] Comment on above: Performed By: #### L 500.2500, L100.0500 ####[facility] [address] [place], [address] WBC (Bld) [#/Vol] 5.9 10*3/uL Normal 4.4-11.0 [facility] Comment on above: Performed By: #### L 500.2500, L100.0500 ####[facility] [address] [place], [address] Carbon dioxide, total [Moles /volume] in Central venous bloodOrdered By: Yaritza Leo on 01-31-2025 CO2 [Moles/Vol] 22.6 mmol/L 21.0-32.0 [facility] Chloride assayOrdered By: Raad Leo on 01-31-2025 Chloride [Moles/Vol] 102 mmol/L 98-108 [facility] Erythrocyte distribution wid th ratioOrdered By: Yaritza Leo on 01-31-2025 Erythrocyte distribution width (RBC) [Ratio] 17.7 % High 11.6-14.6 [facility] Erythrocyte distribution wid th standard deviationOrdered By: Yaritza Leo on 01-31-2025 Erythrocyte distribution width (RBC) [Ratio] 56.9 fl High 35.1-43.9 [facility] Glomerular filtration rate ( GFR) estimation/1.73 sq m using serum, plasma, or whole bOrdered By: Yaritza Leo on 01-31-2025 GFR/1.73 sq M.predicted among non-blacks MDRD (S/P/Bld) [Vol rate/Area] 93 mL/min/{1.73_m2} >60 [facility]dered By: Yaritza Leo on 01-31-2025 Glucose [Mass/Vol] 129 mg/dL High 74-106 [facility] Hematocrit Auto (Bld) [Volum e fraction]Ordered By: Yaritza Leo on 01-31-2025 Hematocrit (Bld) [Volume fraction] 23.8 % Low 40-54 [facility] Hemoglobin measurementOrdere d By: Yaritza Leo on 01-31-2025 Hemoglobin (Bld) [Mass/Vol] 7.9 g/dL Low 13.0-16.5 [facility] MCV (mean corpuscular volume ) determinationOrdered By: Yaritza Leo on 01-31-2025 MCV (RBC) [Entitic vol] 89.8 fL 80-94 [facility] Mean corpuscular hemoglobin (MCH) determinationOrdered By: Yaritza Leo on 01-31-2025 MCH (RBC) [Entitic mass] 29.8 pg 27.0-32.0 [facility] Platelet countOrdered By: Raad Leo on 01-31-2025 Platelets (Bld) [#/Vol] 108 10*3/uL Low 150-450 [facility] Potassium measurement (mass/ volume)Ordered By: Yaritza Leo on 01-31-2025 Potassium (Unsp spec) [Mass/Vol] 3.9 mmol/L 3.3-5.1 [facility] RBC Auto (Bld) [#/Vol]Ordere d By: Yaritza Leo on 01-31-2025 RBC (Bld) [#/Vol] 2.65 10*6/uL Low 4.6-6.2 [facility] Serum creatinine measurement (mass/volume)Ordered By: Yaritza Leo on 01-31-2025 Creatinine [Mass/Vol] 0.95 mg/dL 0.70-1.20 [facility] Serum glucose measurement (m ass/volume)Ordered By: Yaritza Leo on 01-31-2025 Glucose [Mass/Vol] 143 mg/dL High 70-99 [facility] Serum or plasma calcium roosevelt urement (mass/volume)Ordered By: Yaritza Leo on 01-31-2025 Calcium [Mass/Vol] 8.5 mg/dL 7.6-11.0 [facility] Serum or plasma urea nitroge n measurement (mass/volume)Ordered By: Yaritza Leo on 01-31-2025 Urea nitrogen [Mass/Vol] 10 mg/dL 4-19 [facility] Sodium levelOrdered By: Saritha Leo on 01-31-2025 Sodium [Moles/Vol] 133 mmol/L 133-145 [facility] White blood cell (WBC) count Ordered By: Yaritza Leo on 01-31-2025 WBC (Bld) [#/Vol] 5.9 10*3/uL 4.4-11.0 [facility] Absolute lymphocyte countOrd ered By: Yaritza Leo on 01-30-2025 Lymphocytes Auto (Unsp spec) [#/Vol] 1.08 10*3/uL 0.83-4.51 [facility] Automated lymphocyte count a s percentage of total leukocytesOrdered By: Yaritza Leo on 01-30-2025 Lymphocytes/100 WBC Auto (Unsp spec) 20.0 % 19-41 [facility] Basic Metabolic Profile (BMP )on 01-30-2025 BUN/CRE 10.1 RATIO Normal 10-20 [facility] Comment on above: Performed By: #### L 501.5200, L500.2500, L501.2300, L100.0100 ####[facility] [address] [place], [address] Calcium [Mass/Vol] 8.4 mg/dL Normal 7.6-11.0 [facility] Comment on above: Performed By: #### L 501.5200, L500.2500, L501.2300, L100.0100 ####[facility] [address] [place], [address] Chloride [Moles/Vol] 101 mmol/L Normal 98-108 [facility] Comment on above: Performed By: #### L 501.5200, L500.2500, L501.2300, L100.0100 ####[facility] [address] [place], [address] CO2 [Moles/Vol] 17.3 mmol/L Low 21.0-32.0 [facility] Comment on above: Performed By: #### L 501.5200, L500.2500, L501.2300, L100.0100 ####[facility] [address] [place], [address] Creatinine [Mass/Vol] 0.93 mg/dL Normal 0.70-1.20 [facility] Comment on above: Performed By: #### L 501.5200, L500.2500, L501.2300, L100.0100 ####[facility] [address] [place], [address] ECRCL 111.05 ml/min Normal 50-250 [facility] Comment on above: Performed By: #### L 501.5200, L500.2500, L501.2300, L100.0100 ####[facility] [address] [place], [address] GAP 13 Normal 5-15 [facility] Comment on above: Performed By: #### L 501.5200, L500.2500, L501.2300, L100.0100 ####[facility] [address] [place], [address] GFR/1.73 sq M.predicted among non-blacks MDRD (S/P/Bld) [Vol rate/Area] 95 mL/min/{1.73_m2} Normal >60 [facility] Comment on above: Result Comment: mL/m in/1.73m2 CKD-EPI Creatinine Equation (2020) Performed By: #### L 501.5200, L500.2500, L501.2300, L100.0100 ####[facility] [address] [place], [address] Glucose [Mass/Vol] 139 mg/dL High 70-99 [facility] Comment on above: Performed By: #### L 501.5200, L500.2500, L501.2300, L100.0100 ####[facility] [address] [place], [address] Potassium [Moles/Vol] 3.5 mmol/L Normal 3.3-5.1 [facility] Comment on above: Result Comment: Hemo lysis present, Results??could be affected.?? Performed By: #### L 501.5200, L500.2500, L501.2300, L100.0100 ####[facility] [address] [place], [address] Sodium [Moles/Vol] 131 mmol/L Low 133-145 [facility] Comment on above: Performed By: #### L 501.5200, L500.2500, L501.2300, L100.0100 ####[facility] [address] [place], [address] Urea nitrogen [Mass/Vol] 9 mg/dL Normal 4-19 [facility] Comment on above: Performed By: #### L 501.5200, L500.2500, L501.2300, L100.0100 ####[facility] [address] [place], [address] Basophil percentageOrdered B y: Yaritza Leo on 01-30-2025 Basophils/100 WBC (Bld) 0.7 % Normal 0-1 [facility] Comment on above: Performed By: #### L 501.5200, L500.2500, L501.2300, L100.0100 ####[facility] [address] [place], [address] Bedside Glucoseon 01-30-2025 FINGERSTICK GLU 170 mg/dL High 74-106 [facility] Comment on above: Result Comment: BRISA GEMENT OF PATIENT CARE PER NURSING PROTOCOL Performed By: #### L 501.080 ####[facility] [address] [place], [address] FINGERSTICK GLU 122 mg/dL High 74-106 [facility] Comment on above: Result Comment: BRISA GEMENT OF PATIENT CARE PER NURSING PROTOCOL Performed By: #### L 501.080 ####[facility] [address] [place], [address] FINGERSTICK GLU 119 mg/dL High 74-106 [facility] Comment on above: Result Comment: BRISA GEMENT OF PATIENT CARE PER NURSING PROTOCOL Performed By: #### L 501.080 ####[facility] [address] [place], [address] FINGERSTICK GLU 116 mg/dL High 74-106 [facility] Comment on above: Result Comment: BRISA GEMENT OF PATIENT CARE PER NURSING PROTOCOL Performed By: #### L 501.080 ####[facility] [address] [place], [address] CBC W/Diff, Automatedon 06-2 Absolute Lymph 1.08 X10 3/uL Normal 0.83-4.51 [facility] Comment on above: Performed By: #### L 501.5200, L500.2500, L501.2300, L100.0100 ####[facility] [address] [place], [address] Absolute Neut 2.9 X10 3/uL Normal 2.0-7.7 [facility] Comment on above: Performed By: #### L 501.5200, L500.2500, L501.2300, L100.0100 ####[facility] [address] [place], [address] Erythrocyte distribution width (RBC) [Ratio] 18.1 % High 11.6-14.6 [facility] Comment on above: Performed By: #### L 501.5200, L500.2500, L501.2300, L100.0100 ####[facility] [address] [place], [address] Hematocrit (Bld) [Volume fraction] 24.1 % Low 40-54 [facility] Comment on above: Performed By: #### L 501.5200, L500.2500, L501.2300, L100.0100 ####[facility] [address] [place], [address] Hemoglobin (Bld) [Mass/Vol] 7.7 g/dL Low 13.0-16.5 [facility] Comment on above: Performed By: #### L 501.5200, L500.2500, L501.2300, L100.0100 ####[facility] [address] [place], [address] IG% 0.600 Normal 0.0-0.9 [facility] Comment on above: Result Comment: IG% - Immature Granulocytes (promyelocytes, myelocytes andmetamyelocytes) > 1% indicates that a LEFT SHIFT is Present. Performed By: #### L 501.5200, L500.2500, L501.2300, L100.0100 ####[facility] [address] [place], [address] Lymphocytes/100 WBC (Bld) 20.0 % Normal 19-41 [facility] Comment on above: Performed By: #### L 501.5200, L500.2500, L501.2300, L100.0100 ####[facility] [address] [place], [address] MCH (RBC) [Entitic mass] 29.2 pg Normal 27.0-32.0 [facility] Comment on above: Performed By: #### L 501.5200, L500.2500, L501.2300, L100.0100 ####[facility] [address] [place], [address] MCHC (RBC) [Mass/Vol] 32.0 g/dL Normal 32-36 [facility] Comment on above: Performed By: #### L 501.5200, L500.2500, L501.2300, L100.0100 ####[facility] [address] [place], [address] MCV (RBC) [Entitic vol] 91.3 fL Normal 80-94 [facility] Comment on above: Performed By: #### L 501.5200, L500.2500, L501.2300, L100.0100 ####[facility] [address] [place], [address] Nucleated RBC (Bld) [#/Vol] 0 10*3/uL Normal 0-5 [facility] Comment on above: Performed By: #### L 501.5200, L500.2500, L501.2300, L100.0100 ####[facility] [address] [place], [address] Platelet mean volume (Bld) [Entitic vol] 10.5 fL Normal 6.2-12.0 [facility] Comment on above: Performed By: #### L 501.5200, L500.2500, L501.2300, L100.0100 ####[facility] [address] [place], [address] Platelets (Bld) [#/Vol] 108 10*3/uL Low 150-450 [facility] Comment on above: Performed By: #### L 501.5200, L500.2500, L501.2300, L100.0100 ####[facility] [address] [place], [address] RBC (Bld) [#/Vol] 2.64 10*6/uL Low 4.6-6.2 [facility] Comment on above: Performed By: #### L 501.5200, L500.2500, L501.2300, L100.0100 ####[facility] [address] [place], [address] RDW SD 61.1 fl High 35.1-43.9 [facility] Comment on above: Performed By: #### L 501.5200, L500.2500, L501.2300, L100.0100 ####[facility] [address] [place], [address] WBC (Bld) [#/Vol] 5.4 10*3/uL Normal 4.4-11.0 [facility] Comment on above: Performed By: #### L 501.5200, L500.2500, L501.2300, L100.0100 ####[facility] [address] [place], [address] Eosinophil percentageOrdered By: Yaritza Leo on 01-30-2025 Eosinophils/100 WBC (Bld) 7.0 % High 0-5 [facility] Comment on above: Performed By: #### L 501.5200, L500.2500, L501.2300, L100.0100 ####[facility] [address] [place], [address] Immature granulocytes/100 WB C Auto (Bld)Ordered By: Yaritza Leo on 01-30-2025 Immature granulocytes/100 WBC (Bld) 0.600 % 0.0-0.9 [facility] Magnesiumon 01-30-2025 Magnesium [Mass/Vol] 1.7 mg/dL Normal 1.5-2.2 [facility] Comment on above: Performed By: #### L 501.5200, L500.2500, L501.2300, L100.0100 ####[facility] [address] [place], [address] Magnesium measurement (mass/ volume)Ordered By: Yaritza Leo on 01-30-2025 Magnesium (Unsp spec) [Mass/Vol] 1.7 mg/dL 1.5-2.2 [facility] Monocyte percentageOrdered B y: Yaritza Leo on 01-30-2025 Monocytes/100 WBC (Bld) 18.5 % High 0-10 [facility] Comment on above: Performed By: #### L 501.5200, L500.2500, L501.2300, L100.0100 ####[facility] [address] [place], [address] Neutrophil percentageOrdered By: Yaritza Leo on 01-30-2025 Neutrophils/100 WBC (Bld) 53.2 % Normal 47-70 [facility] Comment on above: Performed By: #### L 501.5200, L500.2500, L501.2300, L100.0100 ####[facility] [address] [place], [address] Phosphoruson 01-30-2025 Phosphate [Mass/Vol] 2.7 mg/dL Normal 2.7-4.5 [facility] Comment on above: Performed By: #### L 501.5200, L500.2500, L501.2300, L100.0100 ####[facility] [address] [place], [address] Urine Cultureon 01-30-2025 URC Normal [facility] Comment on above: Performed By: #### M 100.2200 ####[facility] [address] [place], [address] Bedside Glucoseon 01-29-2025 FINGERSTICK GLU 174 mg/dL High 74-106 [facility] Comment on above: Result Comment: BRISA GEMENT OF PATIENT CARE PER NURSING PROTOCOL Performed By: #### L 501.080 ####[facility] [address] [place], [address] FINGERSTICK GLU 163 mg/dL High [facility]106 [facility] Comment on above: Result Comment: BRISA GEMENT OF PATIENT CARE PER NURSING PROTOCOL Performed By: #### L 501.080 ####[facility] [address] [place], [address] FINGERSTICK GLU 196 mg/dL High [facility]106 [facility] Comment on above: Result Comment: BRISA GEMENT OF PATIENT CARE PER NURSING PROTOCOL Performed By: #### L 501.080 ####[facility] [address] [place], [address] FINGERSTICK GLU 237 mg/dL High [address] [facility] Comment on above: Result Comment: BRISA GEMENT OF PATIENT CARE PER NURSING PROTOCOL Performed By: #### L 501.080 ####[facility] [address] [place], [address] FINGERSTICK GLU 172 mg/dL High 74-106 [facility] Comment on above: Result Comment: BRISA GEMENT OF PATIENT CARE PER NURSING PROTOCOL Performed By: #### L 501.080 ####[facility] [address] [place], [address] Bilirubin, totalOrdered By: Boone Izquierdo on 01-29-2025 Bilirubin [Mass/Vol] 1.81 mg/dL High 0.00-1.30 [facility] CBC W/Diff, Automatedon 01-03 Absolute Lymph 0.83 X10 3/uL Normal 0.83-4.51 [facility] Comment on above: Performed By: #### L 500.4050, L100.0100 ####[facility] [address] [place], [address] Absolute Neut 3.0 X10 3/uL Normal 2.0-7.7 [facility] Comment on above: Performed By: #### L 500.4050, L100.0100 ####[facility] [address] [place], [address] Basophils/100 WBC (Bld) 0.8 % Normal 0-1 [facility] Comment on above: Performed By: #### L 500.4050, L100.0100 ####[facility] [address] [place], [address] Eosinophils/100 WBC (Bld) 5.3 % High 0-5 [facility] Comment on above: Performed By: #### L 500.4050, L100.0100 ####[facility] [address] [place], [address] Erythrocyte distribution width (RBC) [Ratio] 18.4 % High 11.6-14.6 [facility] Comment on above: Performed By: #### L 500.4050, L100.0100 ####[facility] [address] [place], [address] Hematocrit (Bld) [Volume fraction] 24.8 % Low 40-54 [facility] Comment on above: Performed By: #### L 500.4050, L100.0100 ####[facility] [address] [place], [address] Hemoglobin (Bld) [Mass/Vol] 8.1 g/dL Low 13.0-16.5 [facility] Comment on above: Performed By: #### L 500.4050, L100.0100 ####[facility] [address] [place], [address] IG% 0.800 Normal 0.0-0.9 [facility] Comment on above: Result Comment: IG% - Immature Granulocytes (promyelocytes, myelocytes andmetamyelocytes) > 1% indicates that a LEFT SHIFT is Present. Performed By: #### L 500.4050, L100.0100 ####[facility] [address] [place], [address] Lymphocytes/100 WBC (Bld) 17.1 % Low 19-41 [facility] Comment on above: Performed By: #### L 500.4050, L100.0100 ####[facility] [address] [place], [address] MCH (RBC) [Entitic mass] 29.6 pg Normal 27.0-32.0 [facility] Comment on above: Performed By: #### L 500.4050, L100.0100 ####[facility] [address] [place], [address] MCHC (RBC) [Mass/Vol] 32.7 g/dL Normal 32-36 [facility] Comment on above: Performed By: #### L 500.4050, L100.0100 ####[facility] [address] [place], [address] MCV (RBC) [Entitic vol] 90.5 fL Normal 80-94 [facility] Comment on above: Performed By: #### L 500.4050, L100.0100 ####[facility] [address] [place], [address] Monocytes/100 WBC (Bld) 15.2 % High 0-10 [facility] Comment on above: Performed By: #### L 500.4050, L100.0100 ####[facility] [address] [place], [address] Neutrophils/100 WBC (Bld) 60.8 % Normal 47-70 [facility] Comment on above: Performed By: #### L 500.4050, L100.0100 ####[facility] [address] [place], [address] Nucleated RBC (Bld) [#/Vol] 0 10*3/uL Normal 0-5 [facility] Comment on above: Performed By: #### L 500.4050, L100.0100 ####[facility] [address] [place], [address] Platelet mean volume (Bld) [Entitic vol] 11.6 fL Normal 6.2-12.0 [facility] Comment on above: Performed By: #### L 500.4050, L100.0100 ####[facility] [address] [place], [address] Platelets (Bld) [#/Vol] 120 10*3/uL Low 150-450 [facility] Comment on above: Performed By: #### L 500.4050, L100.0100 ####[facility] [address] [place], [address] RBC (Bld) [#/Vol] 2.74 10*6/uL Low 4.6-6.2 [facility] Comment on above: Performed By: #### L 500.4050, L100.0100 ####[facility] [address] [place], [address] RDW SD 60.7 fl High 35.1-43.9 [facility] Comment on above: Performed By: #### L 500.4050, L100.0100 ####[facility] [address] [place], [address] WBC (Bld) [#/Vol] 4.9 10*3/uL Normal 4.4-11.0 [facility] Comment on above: Performed By: #### L 500.4050, L100.0100 ####[facility] [address] [place], [address] [facility] 01-29-2025 Albumin [Mass/Vol] 2.3 g/dL Low 3.5-5.0 [facility] Comment on above: Performed By: #### L 500.4050, L100.0100 ####[facility] [address] [place], [address] Albumin/Globulin [Mass ratio] 0.8 {ratio} Low 0.9-2.4 [facility] Comment on above: Performed By: #### L 500.4050, L100.0100 ####[facility] [address] [place], [address] ALK PHOS 180 U/L High 40-129 [facility] Comment on above: Performed By: #### L 500.4050, L100.0100 ####[facility] [address] [place], [address] ALT [Catalytic activity/Vol] 30 U/L Normal <=46 [facility] Comment on above: Performed By: #### L 500.4050, L100.0100 ####[facility] [address] [place], [address] AST [Catalytic activity/Vol] 52 U/L High <=37 [facility] Comment on above: Performed By: #### L 500.4050, L100.0100 ####[facility] [address] [place], [address] Bilirubin [Mass/Vol] 1.81 mg/dL High 0.00-1.30 [facility] Comment on above: Performed By: #### L 500.4050, L100.0100 ####[facility] [address] [place], [address] BUN/CRE 11.6 RATIO Normal 10-20 [facility] Comment on above: Performed By: #### L 500.4050, L100.0100 ####[facility] [address] [place], [address] Calcium [Mass/Vol] 8.8 mg/dL Normal 7.6-11.0 [facility] Comment on above: Performed By: #### L 500.4050, L100.0100 ####[facility] [address] [place], [address] Chloride [Moles/Vol] 100 mmol/L Normal 98-108 [facility] Comment on above: Performed By: #### L 500.4050, L100.0100 ####[facility] [address] [place], [address] CO2 [Moles/Vol] 19.5 mmol/L Low 21.0-32.0 [facility] Comment on above: Performed By: #### L 500.4050, L100.0100 ####[facility] [address] [place], [address] Creatinine [Mass/Vol] 1.09 mg/dL Normal 0.70-1.20 [facility] Comment on above: Performed By: #### L 500.4050, L100.0100 ####[facility] [address] [place], [address] ECRCL 94.75 ml/min Normal 50-250 [facility] Comment on above: Performed By: #### L 500.4050, L100.0100 ####[facility] [address] [place], [address] GAP 14 Normal 5-15 [facility] Comment on above: Performed By: #### L 500.4050, L100.0100 ####[facility] [address] [place], [address] GFR/1.73 sq M.predicted among non-blacks MDRD (S/P/Bld) [Vol rate/Area] 79 mL/min/{1.73_m2} Normal >60 [facility] Comment on above: Result Comment: mL/m in/1.73m2 CKD-EPI Creatinine Equation (2020) Performed By: #### L 500.4050, L100.0100 ####[facility] [address] [place], [address] Globulin (S) [Mass/Vol] 3.1 g/dL Normal 2.2-4.2 [facility] Comment on above: Performed By: #### L 500.4050, L100.0100 ####[facility] [address] [place], [address] Glucose [Mass/Vol] 265 mg/dL High 70-99 [facility] Comment on above: Performed By: #### L 500.4050, L100.0100 ####[facility] [address] [place], [address] Potassium [Moles/Vol] 3.5 mmol/L Normal 3.3-5.1 [facility] Comment on above: Performed By: #### L 500.4050, L100.0100 ####[facility] [address] [place], [address] Sodium [Moles/Vol] 133 mmol/L Normal 133-145 [facility] Comment on above: Performed By: #### L 500.4050, L100.0100 ####[facility] [address] [place], [address] T PROT 5.4 g/dL Low 5.9-8.4 [facility] Comment on above: Performed By: #### L 500.4050, L100.0100 ####[facility] [address] [place], [address] Urea nitrogen [Mass/Vol] 13 mg/dL Normal 4-19 [facility] Comment on above: Performed By: #### L 500.4050, L100.0100 ####[facility] [address] [place], [address] No Panel InformationOrdered By: Boone Izquierdo on 01-29-2025 52 U/L High <38 [facility] Serum globulin measurementOr dered By: Boone Izquierdo on 01-29-2025 Globulin (S) [Mass/Vol] 3.1 g/dL 2.2-4.2 [facility] Serum or plasma alanine thomas otransferase (ALT) measurementOrdered By: Boone Izquierdo on 01-29-2025 ALT [Catalytic activity/Vol] 30 U/L <47 [facility] Serum or plasma albumin roosevelt urement (mass/volume)Ordered By: Boone Izquierdo on 01-29-2025 Albumin [Mass/Vol] 2.3 g/dL Low 3.5-5.0 [facility] Serum or plasma albumin/glob ulin mass ratioOrdered By: Boone Izquierdo on 01-29-2025 Albumin/Globulin [Mass ratio] 0.8 {ratio} Low 0.9-2.4 [facility] Serum or plasma alkaline kendrick sphatase measurementOrdered By: Boone Izquierdo on 01-29-2025 ALP [Catalytic activity/Vol] 180 U/L High 40-129 [facility] Total proteinOrdered By: Danita Izquierdo on 01-29-2025 Protein [Mass/Vol] 5.4 g/dL Low 5.9-8.4 [facility] Abdomen/Pelvis W IV Cont ONL Yon 01-28-2025 Abdomen/Pelvis W IV Cont ONLY Normal [facility] Absolute lymphocyte countOrd ered By: Danyn Hutton on 01-28-2025 Lymphocytes Auto (Unsp spec) [#/Vol] 0.98 10*3/uL 0.83-4.51 [facility] Activated partial thrombopla stin time (aPTT) in platelet poor plasma by coagulation aOrdered By: Danny Hutton on 01-28-2025 aPTT Coag (PPP) [Time] 38.4 s High 24.1-36.2 [facility] Ammoniaon 01-28-2025 Ammonia (P) [Moles/Vol] 108.0 umol/L High 16-60 [facility] Comment on above: Order Comment: ROSIO W. PREVIOUS SPECIMEN REJECTED DUE TOHEMOLYSIS. 01/28/25 [address]. Performed By: #### L 503.5510 ####[facility] [address] [place], [place], [address] Anion gap in Serum or Plasma Ordered By: Danny Hutton on 01-28-2025 Anion gap [Moles/Vol] 14 mmol/L 5-15 [facility] Automated lymphocyte count a s percentage of total leukocytesOrdered By: Danny Hutton on 01-28-2025 Lymphocytes/100 WBC Auto (Unsp spec) 18.8 % Low 19-41 [facility] BUN/creatinine ratioOrdered By: Danny Hutton on 01-28-2025 Urea nitrogen/Creatinine [Mass ratio] 12.8 mg/mg 10-20 [facility] Basic Metabolic Profile (BMP )on 01-28-2025 CO2 [Moles/Vol] 22.1 mmol/L Normal 21.0-32.0 [facility] Comment on above: Performed By: #### L 500.3400, L300.3900, L500.2500, L501.2450, L503.6005, L501.5200, L300.4310, L501.4021, L100.0100, L503.7505 ####[facility] [address] [place], [place], [id number] GAP 14 Normal 5-15 [facility] Comment on above: Performed By: #### L 500.3400, L300.3900, L500.2500, L501.2450, L503.6005, L501.5200, L300.4310, L501.4021, L100.0100, L503.7505 ####[facility] [address] [place], [place], [address] Basophil percentageOrdered B y: Danny Hutton on 01-28-2025 Basophils/100 WBC (Bld) 0.8 % 0-1 [facility] Bedside Glucoseon 01-28-2025 FINGERSTICK GLU 102 mg/dL Normal 74-106 [facility] Comment on above: Result Comment: BRISA GEMENT OF PATIENT CARE PER NURSING PROTOCOL Performed By: #### L 501.080 ####[facility] [address] [place], [place], [id number] FINGERSTICK GLU 96 mg/dL Normal 74-106 [facility] Comment on above: Result Comment: BRISA GEMENT OF PATIENT CARE PER NURSING PROTOCOL Performed By: #### L 501.080 ####[facility] [address] [place], [place], [id number] Bilirubin Test strip Ql (U)O rdered By: Danny Hutton on 01-28-2025 Bilirubin Ql (U) Negative Negative [facility] Bilirubin directOrdered By: Danny Hutton on 01-28-2025 Bilirubin.direct [Mass/Vol] 1.04 mg/dL High 0.00-0.30 [facility] Bilirubin, totalOrdered By: Danny Hutton on 01-28-2025 Bilirubin [Mass/Vol] 1.91 mg/dL High 0.00-1.30 [facility] Blood cultureOrdered By: Silvano Hutton on 01-28-2025 Bacteria identified Cx Nom (Bld) No growth in 5 days. [facility] Bacteria identified Cx Nom (Bld) No growth in 5 days. [facility] CBC W/Diff, Automatedon 01-03 Absolute Lymph 0.98 X10 3/uL Normal 0.83-4.51 [facility] Comment on above: Performed By: #### L 500.3400, L300.3900, L500.2500, L501.2450, L503.6005, L501.5200, L300.4310, L501.4021, L100.0100, L503.7505 ####[facility] [address] [place], [place], [id number] Absolute Neut 3.0 X10 3/uL Normal 2.0-7.7 [facility] Comment on above: Performed By: #### L 500.3400, L300.3900, L500.2500, L501.2450, L503.6005, L501.5200, L300.4310, L501.4021, L100.0100, L503.7505 ####[facility] [address] [place], [address] Basophils/100 WBC (Bld) 0.8 % Normal 0-1 [facility] Comment on above: Performed By: #### L 500.3400, L300.3900, L500.2500, L501.2450, L503.6005, L501.5200, L300.4310, L501.4021, L100.0100, L503.7505 ####[facility] [address] [place], [place], [phone] Eosinophils/100 WBC (Bld) 4.6 % Normal 0-5 [facility] Comment on above: Performed By: #### L 500.3400, L300.3900, L500.2500, L501.2450, L503.6005, L501.5200, L300.4310, L501.4021, L100.0100, L503.7505 ####[facility] [address] [facility] [place], [place], [phone] Erythrocyte distribution width (RBC) [Ratio] 18.4 % High 11.6-14.6 [facility] Comment on above: Performed By: #### L 500.3400, L300.3900, L500.2500, L501.2450, L503.6005, L501.5200, L300.4310, L501.4021, L100.0100, L503.7505 ####[facility] [address] [facility] [place], [phone]) Hematocrit (Bld) [Volume fraction] 25.2 % Low 40-54 [facility] Comment on above: Performed By: #### L 500.3400, L300.3900, L500.2500, L501.2450, L503.6005, L501.5200, L300.4310, L501.4021, L100.0100, L503.7505 ####[facility] [address] [facility] [place], [place], [phone]) Hemoglobin (Bld) [Mass/Vol] 8.3 g/dL Low 13.0-16.5 [facility] Comment on above: Performed By: #### L 500.3400, L300.3900, L500.2500, L501.2450, L503.6005, L501.5200, L300.4310, L501.4021, L100.0100, L503.7505 ####[facility] [address] [place], [address] IG% 1.300 High 0.0-0.9 [facility] Comment on above: Result Comment: IG% - Immature Granulocytes (promyelocytes, myelocytes andmetamyelocytes) > 1% indicates that a LEFT SHIFT is Present. Performed By: #### L 500.3400, L300.3900, L500.2500, L501.2450, L503.6005, L501.5200, L300.4310, L501.4021, L100.0100, L503.7505 ####[facility] [address] [place], [address] Lymphocytes/100 WBC (Bld) 18.8 % Low 19-41 [facility] Comment on above: Performed By: #### L 500.3400, L300.3900, L500.2500, L501.2450, L503.6005, L501.5200, L300.4310, L501.4021, L100.0100, L503.7505 ####[facility] [address] [facility] [place], [address] MCH (RBC) [Entitic mass] 29.4 pg Normal 27.0-32.0 [facility] Comment on above: Performed By: #### L 500.3400, L300.3900, L500.2500, L501.2450, L503.6005, L501.5200, L300.4310, L501.4021, L100.0100, L503.7505 ####[facility] [address] [place], [address] MCHC (RBC) [Mass/Vol] 32.9 g/dL Normal 32-36 [facility] Comment on above: Performed By: #### L 500.3400, L300.3900, L500.2500, L501.2450, L503.6005, L501.5200, L300.4310, L501.4021, L100.0100, L503.7505 ####[facility] [address] [place], [address] MCV (RBC) [Entitic vol] 89.4 fL Normal 80-94 [facility] Comment on above: Performed By: #### L 500.3400, L300.3900, L500.2500, L501.2450, L503.6005, L501.5200, L300.4310, L501.4021, L100.0100, L503.7505 ####[facility] [address] [place], [address] Monocytes/100 WBC (Bld) 16.7 % High 0-10 [facility] Comment on above: Performed By: #### L 500.3400, L300.3900, L500.2500, L501.2450, L503.6005, L501.5200, L300.4310, L501.4021, L100.0100, L503.7505 ####[facility] [address] [place], [address] Neutrophils/100 WBC (Bld) 57.8 % Normal 47-70 [facility] Comment on above: Performed By: #### L 500.3400, L300.3900, L500.2500, L501.2450, L503.6005, L501.5200, L300.4310, L501.4021, L100.0100, L503.7505 ####[facility] [address] [place], [address] Nucleated RBC (Bld) [#/Vol] 0 10*3/uL Normal 0-5 [facility] Comment on above: Performed By: #### L 500.3400, L300.3900, L500.2500, L501.2450, L503.6005, L501.5200, L300.4310, L501.4021, L100.0100, L503.7505 ####[facility] [address] [place], [address] Platelet mean volume (Bld) [Entitic vol] 11.5 fL Normal 6.2-12.0 [facility] Comment on above: Performed By: #### L 500.3400, L300.3900, L500.2500, L501.2450, L503.6005, L501.5200, L300.4310, L501.4021, L100.0100, L503.7505 ####[facility] [address] [place], [place], [phone] Platelets (Bld) [#/Vol] 115 10*3/uL Low 150-450 [facility] Comment on above: Performed By: #### L 500.3400, L300.3900, L500.2500, L501.2450, L503.6005, L501.5200, L300.4310, L501.4021, L100.0100, L503.7505 ####[facility] [address] [place], [place], [phone] RBC (Bld) [#/Vol] 2.82 10*6/uL Low 4.6-6.2 [facility] Comment on above: Performed By: #### L 500.3400, L300.3900, L500.2500, L501.2450, L503.6005, L501.5200, L300.4310, L501.4021, L100.0100, L503.7505 ####[facility] [address] [place], [address] RDW SD 60.7 fl High 35.1-43.9 [facility] Comment on above: Performed By: #### L 500.3400, L300.3900, L500.2500, L501.2450, L503.6005, L501.5200, L300.4310, L501.4021, L100.0100, L503.7505 ####[facility] [address] [place], [address] WBC (Bld) [#/Vol] 5.2 10*3/uL Normal 4.4-11.0 [facility] Comment on above: Performed By: #### L 500.3400, L300.3900, L500.2500, L501.2450, L503.6005, L501.5200, L300.4310, L501.4021, L100.0100, L503.7505 ####[facility] [address] [facility] [place], [address] Carbon dioxide, total [Moles /volume] in Central venous bloodOrdered By: Danny Hutton on 01-28-2025 CO2 [Moles/Vol] 22.1 mmol/L 21.0-32.0 [facility] Chest PA and Lateralon 01-28 Chest PA and Lateral Normal [facility] Chloride assayOrdered By: Darin Hutton on 01-28-2025 Chloride [Moles/Vol] 95 mmol/L Low 98-108 [facility] Emergency Department Summary on 01-28-2025 Emergency Department Summary Normal [facility] Eosinophil percentageOrdered By: Danny Hutton on 01-28-2025 Eosinophils/100 WBC (Bld) 4.6 % 0-5 [facility] Erythrocyte distribution wid th ratioOrdered By: Danny Hutton on 01-28-2025 Erythrocyte distribution width (RBC) [Ratio] 18.4 % High 11.6-14.6 [facility] Erythrocyte distribution wid th standard deviationOrdered By: Danny Barker on 01-28-2025 Erythrocyte distribution width (RBC) [Ratio] 60.7 fl High 35.1-43.9 [facility] Glomerular filtration rate ( GFR) estimation/1.73 sq m using serum, plasma, or whole bOrdered By: Danny Hutton on 01-28-2025 GFR/1.73 sq M.predicted among non-blacks MDRD (S/P/Bld) [Vol rate/Area] 73 mL/min/{1.73_m2} >60 [facility] H AND P Exam - Hospitaliston 01-28-2025 H&P Exam - Hospitalist Normal [facility] Hematocrit Auto (Bld) [Volum e fraction]Ordered By: Danny Hutton on 01-28-2025 Hematocrit (Bld) [Volume fraction] 25.2 % Low 40-54 [facility] Hemoglobin measurementOrdere d By: Danny sunnyLucero on 01-28-2025 Hemoglobin (Bld) [Mass/Vol] 8.3 g/dL Low 13.0-16.5 [facility] Immature granulocytes/100 WB C Auto (Bld)Ordered By: [facility] 01-28-2025 Immature granulocytes/100 WBC (Bld) 1.300 % High 0.0-0.9 [facility] Influenza virus A and B and SARS-CoV-2 (COVID-19) and Respiratory syncytial virus RNAOrdered By: Danny sunnyLucero on 01-28-2025 SARS-CoV-2 (COVID-19) RNA ANANTH+probe Ql (Unsp spec) [facility] Ketones Test strip Ql (U)Ord ered By: [facility] on 01-28-2025 Ketones Ql (U) Negative Negative [facility] L499.0042on 01-28-2025 Trop T High Sen Normal <=22 [facility] Comment on above: Result Comment: Devonte goodwin via OM: Ordered Performed By: #### L 499.0042 ####[facility] [address] [place], [address] L501.4021on 01-28-2025 Trop T High Sen 13 ng/L Normal <=22 [facility] Comment on above: Performed By: #### L 500.3400, L300.3900, L500.2500, L501.2450, L503.6005, L501.5200, L300.4310, L501.4021, L100.0100, L503.7505 ####[facility] [facility] [address] [place], [place], [address] L503.7505on 01-28-2025 Natriuretic peptide B (Bld) [Mass/Vol] 140 pg/mL Normal <=900 [facility] Comment on above: Result Comment: Hear t Failure Unlikely: < 300 pg/mLHeart Failure Likely< 50 Years: > 450 pg/mL50-75 Years: > 900 pg/mL>75 Years: > 1800 pg/mL Performed By: #### L 500.3400, L300.3900, L500.2500, L501.2450, L503.6005, L501.5200, L300.4310, L501.4021, L100.0100, L503.7505 ####[facility] [address] [place], [place], [phone] Lactic Acidon 01-28-2025 Lactate [Moles/Vol] 2.8 mmol/L Invalid Interpretation Code 0.0-2.0 [facility] Comment on above: Result Comment: Crit ical Result(s) Called at: 01/28/2025-09:07 by: Jennifer Marsh.??Results read back by same. Performed By: #### L 503.6005 ####[facility] [address] [place], [place], [phone] Lactate [Moles/Vol] 3.4 mmol/L Invalid Interpretation Code 0.0-2.0 [facility] Comment on above: Order Comment: Y Result Comment: Crit ical Result(s) Called at: 01/28/2025-04:24 by: Jennifer Alva.??Results read back by same. Performed By: #### L 500.3400, L300.3900, L500.2500, L501.2450, L503.6005, L501.5200, L300.4310, L501.4021, L100.0100, L503.7505 ####[facility] [address] [place], [place], [id number] Lipaseon 01-28-2025 Lipase [Catalytic activity/Vol] 33 U/L Normal 13-75 [facility] Comment on above: Result Comment: Siddhartha bhat note:LIPASE revised reference range effective 22.New Lipase methodology. Expected to produce lower valuesthan the previous assay method.NEW Reference Range: 13 - 75 U/L Performed By: #### L 500.3400, L300.3900, L500.2500, L501.2450, L503.6005, L501.5200, L300.4310, L501.4021, L100.0100, L503.7505 ####[facility] [address] [place], [address] Liver Profileon 01-28-2025 Albumin [Mass/Vol] 2.5 g/dL Low 3.5-5.0 [facility] Comment on above: Performed By: #### L 500.3400, L300.3900, L500.2500, L501.2450, L503.6005, L501.5200, L300.4310, L501.4021, L100.0100, L503.7505 ####[facility] [address] [place], [address] ALK PHOS 201 U/L High 40-129 [facility] Comment on above: Performed By: #### L 500.3400, L300.3900, L500.2500, L501.2450, L503.6005, L501.5200, L300.4310, L501.4021, L100.0100, L503.7505 ####[facility] [address] [place], [address] ALT [Catalytic activity/Vol] 31 U/L Normal <=46 [facility] Comment on above: Performed By: #### L 500.3400, L300.3900, L500.2500, L501.2450, L503.6005, L501.5200, L300.4310, L501.4021, L100.0100, L503.7505 ####[facility] [address] [place], [address] AST [Catalytic activity/Vol] 58 U/L High <=37 [facility] Comment on above: Performed By: #### L 500.3400, L300.3900, L500.2500, L501.2450, L503.6005, L501.5200, L300.4310, L501.4021, L100.0100, L503.7505 ####[facility] [address] [place], [address] Bilirubin [Mass/Vol] 1.91 mg/dL High 0.00-1.30 [facility] Comment on above: Performed By: #### L 500.3400, L300.3900, L500.2500, L501.2450, L503.6005, L501.5200, L300.4310, L501.4021, L100.0100, L503.7505 ####[facility] [address] [place], [place], [phone] Bilirubin.direct [Mass/Vol] 1.04 mg/dL High 0.00-0.30 [facility] Comment on above: Performed By: #### L 500.3400, L300.3900, L500.2500, L501.2450, L503.6005, L501.5200, L300.4310, L501.4021, L100.0100, L503.7505 ####[facility] [address] [place], [address] Globulin (S) [Mass/Vol] 3.3 g/dL Normal 2.2-4.2 [facility] Comment on above: Performed By: #### L 500.3400, L300.3900, L500.2500, L501.2450, L503.6005, L501.5200, L300.4310, L501.4021, L100.0100, L503.7505 ####[facility] [address] [place], [address] T PROT 5.9 g/dL Normal 5.9-8.4 [facility] Comment on above: Performed By: #### L 500.3400, L300.3900, L500.2500, L501.2450, L503.6005, L501.5200, L300.4310, L501.4021, L100.0100, L503.7505 ####[facility] [address] [place], [address] M100.678on 01-28-2025 M100.678 SARS-CoV-2 (COVID 19 ) Negative INFLUENZA A Negative INFLUENZA B Negative RSV PCR Negative Normal [facility] Comment on above: Performed By: #### M 100.678 ####[facility] [address] [place], [address] MCV (mean corpuscular volume ) determinationOrdered By: Danny Hutton on 01-28-2025 MCV (RBC) [Entitic vol] 89.4 fL 80-94 [facility] Magnesiumon 01-28-2025 Magnesium [Mass/Vol] 1.7 mg/dL Normal 1.5-2.2 [facility] Comment on above: Performed By: #### L 500.3400, L300.3900, L500.2500, L501.2450, L503.6005, L501.5200, L300.4310, L501.4021, L100.0100, L503.7505 ####[facility] [address] [place], [address] Magnesium measurement (mass/ volume)Ordered By: Danny Hutton on 01-28-2025 Magnesium (Unsp spec) [Mass/Vol] 1.7 mg/dL 1.5-2.2 [facility] Mean corpuscular hemoglobin (MCH) determinationOrdered By: Danny Hutton on 01-28-2025 MCH (RBC) [Entitic mass] 29.4 pg 27.0-32.0 [facility] Monocyte percentageOrdered B y: Danny Hutton on 01-28-2025 Monocytes/100 WBC (Bld) 16.7 % High 0-10 [facility] Mucus LM Ql (Urine sed)Order ed By: Danny Hutton on 01-28-2025 Mucus Ql (Urine sed) 0 SEEN /hpf [facility] Natriuretic peptide.B prohor prachi N-Terminal [Mass/volume] in Serum or PlasmaOrdered By: Danny Hutton on 01-28-2025 Natriuretic peptide.B prohormone N-Terminal [Mass/Vol] 140 pg/mL <900 [facility] Neutrophil percentageOrdered By: Danny Hutton on 01-28-2025 Neutrophils/100 WBC (Bld) 57.8 % 47-70 [facility] Nitrite Test strip Ql (U)Ord ered By: Danny Hutton on 01-28-2025 Nitrite Ql (U) Negative Negative [facility] No Panel InformationOrdered By: Danny Hutton on 01-28-2025 58 U/L High <38 [facility] Partial Thromboplast Timeon 01-28-2025 aPTT Coag (Bld) [Time] 38.4 s High 24.1-36.2 [facility] Comment on above: Performed By: #### L 500.3400, L300.3900, L500.2500, L501.2450, L503.6005, L501.5200, L300.4310, L501.4021, L100.0100, L503.7505 ####[facility] [address] [place], [place], [phone] Platelet countOrdered By: Darin Hutton on 01-28-2025 Platelets (Bld) [#/Vol] 115 10*3/uL Low 150-450 [facility] Potassium measurement (mass/ volume)Ordered By: Danny Hutton on 01-28-2025 Potassium (Unsp spec) [Mass/Vol] 3.4 mmol/L 3.3-5.1 [facility] Protein Test strip Ql (U)Ord ered By: Danny Hutton on 01-28-2025 Protein Ql (U) 100 mg/dl High Negative [facility] Prothrombin Time w/INRon INR Coag (PPP) [Relative time] 1.7 {INR} Normal [facility] Comment on above: Performed By: #### L 500.3400, L300.3900, L500.2500, L501.2450, L503.6005, L501.5200, L300.4310, L501.4021, L100.0100, L503.7505 ####[facility] [address] [place], [place], [phone] PT Coag (PPP) [Time] 20.0 s High 11.7-14.9 [facility] Comment on above: Performed By: #### L 500.3400, L300.3900, L500.2500, L501.2450, L503.6005, L501.5200, L300.4310, L501.4021, L100.0100, L503.7505 ####[facility] [address] [place], [place], [phone] Prothrombin timeOrdered By: Danny Hutton on 01-28-2025 PT Coag (PPP) [Time] 20.0 s High 11.7-14.9 [facility] RBC Auto (Bld) [#/Vol]Ordere d By: Danny Hutton on 01-28-2025 RBC (Bld) [#/Vol] 2.82 10*6/uL Low 4.6-6.2 [facility] Serum creatinine measurement (mass/volume)Ordered By: Danny Hutton on 01-28-2025 Creatinine [Mass/Vol] 1.16 mg/dL 0.70-1.20 [facility] Serum globulin measurementOr dered By: Danny Hutton on 01-28-2025 Globulin (S) [Mass/Vol] 3.3 g/dL 2.2-4.2 [facility] Serum glucose measurement (m ass/volume)Ordered By: Danny Hutton on 01-28-2025 Glucose [Mass/Vol] 93 mg/dL 70-99 [facility] Serum or plasma alanine thomas otransferase (ALT) measurementOrdered By: Danny Hutton on 01-28-2025 ALT [Catalytic activity/Vol] 31 U/L <47 [facility] Serum or plasma albumin roosevelt urement (mass/volume)Ordered By: Danny Barker on 01-28-2025 Albumin [Mass/Vol] 2.5 g/dL Low 3.5-5.0 [facility] Serum or plasma alkaline kendrick sphatase measurementOrdered By: Danny Hutton on 01-28-2025 ALP [Catalytic activity/Vol] 201 U/L High 40-129 [facility] Serum or plasma calcium roosevelt urement (mass/volume)Ordered By: Danny Barker on 01-28-2025 Calcium [Mass/Vol] 8.9 mg/dL 7.6-11.0 [facility] Serum or plasma urea nitroge n measurement (mass/volume)Ordered By: Danny Hutton on 01-28-2025 Urea nitrogen [Mass/Vol] 15 mg/dL 4-19 [facility] Sodium levelOrdered By: Srinath Hutton on 01-28-2025 Sodium [Moles/Vol] 131 mmol/L Low 133-145 [facility] Squamous epithelial cells de tection in urine sediment by light microscopyOrdered By: Danny Hutton on 01-28-2025 Epithelial cells.squamous LM Ql (Urine sed) 0 SEEN /hpf 0-5 [facility] Total proteinOrdered By: Silvano Hutton on 01-28-2025 Protein [Mass/Vol] 5.9 g/dL 5.9-8.4 [facility] Troponin T.cardiac [Mass/vol ume] in Serum or Plasma by High sensitivity methodOrdered By: Danny Hutton on 01-28-2025 Troponin T.cardiac High sensitivity method [Mass/Vol] 13 ng/L <22 [facility] Urinalysis, Completeon 01-28 BACTERIA 1+ /hpf Normal None Seen [facility] Comment on above: Order Comment: COLOR OF URINE MAY AFFECT DIPSTICK RESULTS.FLYER MAKER TO SPECIFY Performed By: #### L 400.0001 ####[facility] [address] [place], [address] RBC > 100 SEEN Normal 0-5 [facility] Comment on above: Order Comment: COLOR OF URINE MAY AFFECT DIPSTICK RESULTS.FLYER MAKER TO SPECIFY Performed By: #### L 400.0001 ####[facility] [address] [place], [address] WBC 10-25 SEEN Normal 0-5 [facility] Comment on above: Order Comment: COLOR OF URINE MAY AFFECT DIPSTICK RESULTS.FLYER MAKER TO SPECIFY Performed By: #### L 400.0001 ####[facility] [address] [place], [address] EPI,SQUAMOUS 0 SEEN Normal 0-5 [facility] Comment on above: Order Comment: COLOR OF URINE MAY AFFECT DIPSTICK RESULTS.FLYER MAKER TO SPECIFY Performed By: #### L 400.0001 ####[facility] [address] [place], [address] Mucus Ql (Urine sed) 0 SEEN Normal [facility] Comment on above: Order Comment: COLOR OF URINE MAY AFFECT DIPSTICK RESULTS.FLYER MAKER TO SPECIFY Performed By: #### L 400.0001 ####[facility] [address] [place], [address] Urine clarityOrdered By: Silvano Hutton on 01-28-2025 Clarity (U) Cloudy Clear [facility] Urine color determinationOrd ered By: Danny Hutton on 01-28-2025 Color (U) Lexis Yellow [facility] Urine cultureOrdered By: Silvano Hutton on 01-28-2025 Bacteria identified Cx Nom (U) Vancomycin Resist. E. faecalis Abnormal [facility] Bacteria identified Cx Nom (U) 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 Abnormal [facility] Urine glucose detectionOrder ed By: Danny Hutton on 01-28-2025 Glucose Ql (U) Normal mg/dl Normal [facility] Urine leukocyte esterase det ection by dipstickOrdered By: Danny Hutton on 01-28-2025 Leukocyte esterase Test strip Ql (U) 500 /ul High Negative [facility] Urine pHOrdered By: Danny Santiago on 01-28-2025 pH (U) 8.0 [pH] 5.0 - 8.0 [facility] Urine sediment bacteria coun t by microscopy (number/high power field)Ordered By: Danny Hutton on 01-28-2025 Bacteria LM.HPF (Urine sed) [#/Area] 1 /[HPF] None Seen [facility] Urine specific gravity measu rementOrdered By: Danny Hutton on 01-28-2025 Specific gravity (U) [Rel density] 1.015 1.002-1.030 [facility] Urine urobilinogen measureme ntOrdered By: Danny Hutton on 01-28-2025 Urobilinogen Ql (U) Normal mg/dl Normal [facility] Venous blood ammonia measure mentOrdered By: Danny Hutton on 01-28-2025 Ammonia (P) [Moles/Vol] 108.0 umol/L High 16-60 [facility] White blood cell (WBC) count Ordered By: Danny Hutton on 01-28-2025 WBC (Bld) [#/Vol] 5.2 10*3/uL 4.4-11.0 [facility] White blood cell countOrdere d By: Danny Hutton on 01-28-2025 White blood cell count 10-25 SEEN /hpf 0-5 [facility] Body Fluid Cell Count+Diffon 01-25-2025 MESOTHELIAL 7 Normal [facility] Comment on above: Order Comment: The r eference range and other method performancespecifications have not been established for this bodyfluid. The test must be integrated into the clinicalcontext for interpretation. Result Comment: AMENDED REPORT 01/25/25 1125 OTHER CELL/BF previously reported as: 7 % Performed By: #### L 200.0200, L350.1000, M100.2900, M100.4001, M100.1999 ####[facility] [address] [place], [address] Culture, Anaerobic Any Sourc iliana 01-24-2025 CUAN No growth in 5 days. Normal [facility] Comment on above: Performed By: #### L 200.0200, L350.1000, M100.2900, M100.4001, M100.1999 ####[facility] [address] [place], [address] Anion gap in Serum or Plasma Ordered By: Anurag Irene on 01-21-2025 Anion gap [Moles/Vol] 7 mmol/L 12-16 [facility] BUN/creatinine ratioOrdered By: Anurag Irene on 01-21-2025 Urea nitrogen/Creatinine [Mass ratio] 15.6 mg/mg 05-23 [facility] Bedside Glucoseon 01-21-2025 FINGERSTICK GLU 151 mg/dL High 74-106 [facility] Comment on above: Result Comment: BRISA GEMENT OF PATIENT CARE PER NURSING PROTOCOL Performed By: #### L 501.080 ####[facility] [address] [facility] [address] FINGERSTICK GLU 199 mg/dL High 74-106 [facility] Comment on above: Result Comment: BRISA GEMENT OF PATIENT CARE PER NURSING PROTOCOL Performed By: #### L 501.080 ####[facility] [address] [facility] [id number] Bilirubin, totalOrdered By: Anurag Irene on 01-21-2025 Bilirubin [Mass/Vol] 1.52 mg/dL High 0.00-1.30 [facility] Carbon dioxide, total [Moles /volume] in Central venous bloodOrdered By: Anurag Irene on 01-21-2025 CO2 [Moles/Vol] 29.7 mmol/L 21.0-32.0 [facility] Chloride assayOrdered By: Francois Irene on 01-21-2025 Chloride [Moles/Vol] 96 mmol/L Low 98-108 [facility] Comprehensive Metabolic Prof ilon 01-21-2025 Albumin [Mass/Vol] 2.1 g/dL Low 3.5-5.0 [facility] Comment on above: Performed By: #### L 500.4050 ####[facility] [address] [place], [address] Albumin/Globulin [Mass ratio] 0.8 {ratio} Low 0.9-2.4 [facility] Comment on above: Performed By: #### L 500.4050 ####[facility] [address] [place], [address] ALK PHOS 204 U/L High 40-129 [facility] Comment on above: Performed By: #### L 500.4050 ####[facility] [address] [place], [address] ALT [Catalytic activity/Vol] 28 U/L Normal <=46 [facility] Comment on above: Performed By: #### L 500.4050 ####[facility] [address] [place], [address] AST [Catalytic activity/Vol] 48 U/L High <=37 [facility] Comment on above: Performed By: #### L 500.4050 ####[facility] [address] [place], [address] Bilirubin [Mass/Vol] 1.52 mg/dL High 0.00-1.30 [facility] Comment on above: Performed By: #### L 500.4050 ####[facility] [address] [place], [address] BUN/CRE 15.6 RATIO Normal 10-20 [facility] Comment on above: Performed By: #### L 500.4050 ####[facility] [address] [place], [address] Calcium [Mass/Vol] 8.1 mg/dL Normal 7.6-11.0 [facility] Comment on above: Performed By: #### L 500.4050 ####[facility] [address] [place], [address] Chloride [Moles/Vol] 96 mmol/L Low 98-108 [facility] Comment on above: Performed By: #### L 500.4050 ####[facility] [address] [place], [address] CO2 [Moles/Vol] 29.7 mmol/L Normal 21.0-32.0 [facility] Comment on above: Performed By: #### L 500.4050 ####[facility] [address] [place], [address] Creatinine [Mass/Vol] 0.86 mg/dL Normal 0.70-1.20 [facility] Comment on above: Performed By: #### L 500.4050 ####[facility] [address] [place], [address] ECRCL 114.50 ml/min Normal 50-250 [facility] Comment on above: Performed By: #### L 500.4050 ####[facility] [address] [place], [address] GAP 7 Normal 5-15 [facility] Comment on above: Performed By: #### L 500.4050 ####[facility] [address] [place], [address] GFR/1.73 sq M.predicted among non-blacks MDRD (S/P/Bld) [Vol rate/Area] 100 mL/min/{1.73_m2} Normal >60 [facility] Comment on above: Result Comment: mL/m in/1.73m2 CKD-EPI Creatinine Equation (2020) Performed By: #### L 500.4050 ####[facility] [address] [place], [address] Globulin (S) [Mass/Vol] 2.6 g/dL Normal 2.2-4.2 [facility] Comment on above: Performed By: #### L 500.4050 ####[facility] [address] [place], [address] Glucose [Mass/Vol] 199 mg/dL High 70-99 [facility] Comment on above: Performed By: #### L 500.4050 ####[facility] [address] [place], [address] Potassium [Moles/Vol] 3.1 mmol/L Low 3.3-5.1 [facility] Comment on above: Performed By: #### L 500.4050 ####[facility] [address] [place], [address] Sodium [Moles/Vol] 133 mmol/L Normal 133-145 [facility] Comment on above: Performed By: #### L 500.4050 ####[facility] [address] [place], [address] T PROT 4.7 g/dL Low 5.9-8.4 [facility] Comment on above: Performed By: #### L 500.4050 ####[facility] [address] [place], [address] Urea nitrogen [Mass/Vol] 13 mg/dL Normal 4-19 [facility] Comment on above: Performed By: #### L 500.4050 ####[facility] [address] [place], [place], [id number] Glomerular filtration rate ( GFR) estimation/1.73 sq m using serum, plasma, or whole bOrdered By: Anurag Irene on 01-21-2025 GFR/1.73 sq M.predicted among non-blacks MDRD (S/P/Bld) [Vol rate/Area] 100 mL/min/{1.73_m2} >60 [facility] Glucose measurement at [facility] deOrdered By: Anurag Irene on 01-21-2025 Glucose [Mass/Vol] 151 mg/dL High 74-106 [facility] No Panel InformationOrdered By: Anurag Irene on 01-21-2025 48 U/L High <38 [facility] Potassium measurement (mass/ volume)Ordered By: Anurag Irene on 01-21-2025 Potassium (Unsp spec) [Mass/Vol] 3.1 mmol/L Low 3.3-5.1 [facility] Serum creatinine measurement (mass/volume)Ordered By: Anurag Irene on 01-21-2025 Creatinine [Mass/Vol] 0.86 mg/dL 0.70-1.20 [facility] Serum globulin measurementOr dered By: Anurag Irene on 01-21-2025 Globulin (S) [Mass/Vol] 2.6 g/dL 2.2-4.2 [facility] Serum glucose measurement (m ass/volume)Ordered By: Anurag Irene on 01-21-2025 Glucose [Mass/Vol] 199 mg/dL High 70-99 [facility] Serum or plasma alanine thomas otransferase (ALT) measurementOrdered By: Anurag Irene on 01-21-2025 ALT [Catalytic activity/Vol] 28 U/L <47 [facility] Serum or plasma albumin roosevelt urement (mass/volume)Ordered By: Anurag Irene on 01-21-2025 Albumin [Mass/Vol] 2.1 g/dL Low 3.5-5.0 [facility] Serum or plasma albumin/glob ulin mass ratioOrdered By: Anurag Irene on 01-21-2025 Albumin/Globulin [Mass ratio] 0.8 {ratio} Low 0.9-2.4 [facility] Serum or plasma alkaline kendrick sphatase measurementOrdered By: Anurag Irene on 01-21-2025 ALP [Catalytic activity/Vol] 204 U/L High 40-129 [facility] Serum or plasma calcium roosevelt urement (mass/volume)Ordered By: Anurag Irene on 01-21-2025 Calcium [Mass/Vol] 8.1 mg/dL 7.6-11.0 [facility] Serum or plasma urea nitroge n measurement (mass/volume)Ordered By: Anurag Irene on 01-21-2025 Urea nitrogen [Mass/Vol] 13 mg/dL 4-19 [facility] Sodium levelOrdered By: Marni Irene on 01-21-2025 Sodium [Moles/Vol] 133 mmol/L 133-145 [facility] Total proteinOrdered By: [place] Irene on 01-21-2025 Protein [Mass/Vol] 4.7 g/dL Low 5.9-8.4 [facility] Absolute lymphocyte countOrd ered By: Anruag Irene on 01-20-2025 Lymphocytes Auto (Unsp spec) [#/Vol] 1.10 10*3/uL 0.83-4.51 [facility] Automated lymphocyte count a s percentage of total leukocytesOrdered By: Anurag Irene on 01-20-2025 Lymphocytes/100 WBC Auto (Unsp spec) 16.3 % Low 19-41 [facility] Basophil percentageOrdered B y: Anurag Irene on 01-20-2025 Basophils/100 WBC (Bld) 0.6 % 0-1 [facility] Bedside Glucoseon 01-20-2025 FINGERSTICK GLU 206 mg/dL High 74-106 [facility] Comment on above: Result Comment: BRISA MOROCHO OF PATIENT CARE PER NURSING PROTOCOL Performed By: #### L 501.080 ####[facility] [facility] [address] [place], [address] FINGERSTICK GLU 188 mg/dL High 74-106 [facility] Comment on above: Result Comment: BRISA GEMENT OF PATIENT CARE PER NURSING PROTOCOL Performed By: #### L 501.080 ####[facility] [address] [place], [address] FINGERSTICK GLU 167 mg/dL High 74-106 [facility] Comment on above: Result Comment: BRISA GEMENT OF PATIENT CARE PER NURSING PROTOCOL Performed By: #### L 501.080 ####[facility] [address] [place], [address] FINGERSTICK GLU 164 mg/dL High 74-106 [facility] Comment on above: Result Comment: BRISA GEMENT OF PATIENT CARE PER NURSING PROTOCOL Performed By: #### L 501.080 ####[facility] [address] [place], [address] Blood manual differential co mment interpretation (narrative result)Ordered By: Anurag Irene on 01-20-2025 Manual differential comment Marco Antonio (Bld) [Interp] SCANNED [facility] CBC W/Diff, Automatedon - PLT EST MOD DEC Normal ADEQ [facility] Comment on above: Performed By: #### L 100.0100 ####[facility] [address] [place], [address] SMEAR COMMENT SCANNED Normal [facility] Comment on above: Performed By: #### L 100.0100 ####[facility] [address] [place], [address] Comprehensive Metabolic Prof ilon 01-20-2025 Albumin [Mass/Vol] 2.0 g/dL Low 3.5-5.0 [facility] Comment on above: Performed By: #### L 500.4050 ####[facility] [address] [place], [address] Albumin/Globulin [Mass ratio] 0.7 {ratio} Low 0.9-2.4 [facility] Comment on above: Performed By: #### L 500.4050 ####[facility] [address] [place], [address] ALK PHOS 211 U/L High 40-129 [facility] Comment on above: Performed By: #### L 500.4050 ####[facility] [address] [place], [address] ALT [Catalytic activity/Vol] 32 U/L Normal <=46 [facility] Comment on above: Performed By: #### L 500.4050 ####[facility] [address] [place], [address] AST [Catalytic activity/Vol] 45 U/L High <=37 [facility] Comment on above: Performed By: #### L 500.4050 ####[facility] [address] [place], [address] Bilirubin [Mass/Vol] 1.61 mg/dL High 0.00-1.30 [facility] Comment on above: Performed By: #### L 500.4050 ####[facility] [address] [place], [address] BUN/CRE 13.4 RATIO Normal 10-20 [facility] Comment on above: Performed By: #### L 500.4050 ####[facility] [address] [place], [address] Calcium [Mass/Vol] 8.1 mg/dL Normal 7.6-11.0 [facility] Comment on above: Performed By: #### L 500.4050 ####[facility] [address] [place], [address] Chloride [Moles/Vol] 95 mmol/L Low 98-108 [facility] Comment on above: Performed By: #### L 500.4050 ####[facility] [address] [place], [address] CO2 [Moles/Vol] 30.3 mmol/L Normal 21.0-32.0 [facility] Comment on above: Performed By: #### L 500.4050 ####[facility] [address] [place], [address] Creatinine [Mass/Vol] 0.87 mg/dL Normal 0.70-1.20 [facility] Comment on above: Performed By: #### L 500.4050 ####[facility] [address] [place], [address] ECRCL 112.61 ml/min Normal 50-250 [facility] Comment on above: Performed By: #### L 500.4050 ####[facility] [address] [place], [address] GAP 7 Normal 5-15 [facility] Comment on above: Performed By: #### L 500.4050 ####[facility] [address] [place], [address] GFR/1.73 sq M.predicted among non-blacks MDRD (S/P/Bld) [Vol rate/Area] 100 mL/min/{1.73_m2} Normal >60 [facility] Comment on above: Result Comment: mL/m in/1.73m2 CKD-EPI Creatinine Equation (2020) Performed By: #### L 500.4050 ####[facility] [address] [place], [address] Globulin (S) [Mass/Vol] 2.9 g/dL Normal 2.2-4.2 [facility] Comment on above: Performed By: #### L 500.4050 ####[facility] [address] [place], [address] Glucose [Mass/Vol] 195 mg/dL High 70-99 [facility] Comment on above: Performed By: #### L 500.4050 ####[facility] [address] [place], [place], [address] Potassium [Moles/Vol] 3.1 mmol/L Low 3.3-5.1 [facility] Comment on above: Performed By: #### L 500.4050 ####[facility] [address] [place], [address] Sodium [Moles/Vol] 133 mmol/L Normal 133-145 [facility] Comment on above: Performed By: #### L 500.4050 ####[facility] [address] [place], [address] T PROT 4.9 g/dL Low 5.9-8.4 [facility] Comment on above: Performed By: #### L 500.4050 ####[facility] [address] [place], [place], [address] Urea nitrogen [Mass/Vol] 12 mg/dL Normal 4-19 [facility] Comment on above: Performed By: #### L 500.4050 ####[facility] [address] [place], [place], [id number] Eosinophil percentageOrdered By: Anurag Irene on 01-20-2025 Eosinophils/100 WBC (Bld) 6.5 % High 0-5 [facility] Erythrocyte distribution wid th ratioOrdered By: Anurag Irene on 01-20-2025 Erythrocyte distribution width (RBC) [Ratio] 18.3 % High 11.6-14.6 [facility] Erythrocyte distribution wid th standard deviationOrdered By: Anurag Irene on 01-20-2025 Erythrocyte distribution width (RBC) [Ratio] 58.5 fl High 35.1-43.9 [facility] Hematocrit Auto (Bld) [Volum e fraction]Ordered By: Anurag Irene on 01-20-2025 Hematocrit (Bld) [Volume fraction] 22.9 % Low 40-54 [facility] Hemoglobin measurementOrdere d By: Anurag Irene on 01-20-2025 Hemoglobin (Bld) [Mass/Vol] 7.7 g/dL Low 13.0-16.5 [facility] Immature granulocytes/100 WB C Auto (Bld)Ordered By: Anurag Irene on 01-20-2025 Immature granulocytes/100 WBC (Bld) 1.200 % High 0.0-0.9 [facility] MCV (mean corpuscular volume ) determinationOrdered By: Anurag Irene on 01-20-2025 MCV (RBC) [Entitic vol] 88.1 fL 80-94 [facility] Mean corpuscular hemoglobin (MCH) determinationOrdered By: Anurag Irene on 01-20-2025 MCH (RBC) [Entitic mass] 29.6 pg 27.0-32.0 [facility] Monocyte percentageOrdered B y: Anurag Irene on 01-20-2025 Monocytes/100 WBC (Bld) 11.9 % High 0-10 [facility] Neutrophil percentageOrdered By: Anurag Irene on 01-20-2025 Neutrophils/100 WBC (Bld) 63.5 % 47-70 [facility] Platelet countOrdered By: Francois Irene on 01-20-2025 Platelets (Bld) [#/Vol] 93 10*3/uL Low 150-450 [facility] Platelet estimateOrdered By: Anurag Irene on 01-20-2025 Platelets LM Ql (Bld) MOD DEC ADEQ [facility] RBC Auto (Bld) [#/Vol]Ordere d By: Anurag Irene on 01-20-2025 RBC (Bld) [#/Vol] 2.60 10*6/uL Low 4.6-6.2 [facility] White blood cell (WBC) count Ordered By: Anurag Irene on 01-20-2025 WBC (Bld) [#/Vol] 6.8 10*3/uL 4.4-11.0 [facility] Activated partial thrombopla stin time (aPTT) in platelet poor plasma by coagulation aOrdered By: Rosendo Renee on 01-19-2025 aPTT Coag (PPP) [Time] 46.6 s High 24.1-36.2 [facility] Albumin, Serumon 01-19-2025 Albumin [Mass/Vol] 2.2 g/dL Low 3.5-5.0 [facility] Comment on above: Performed By: #### L 501.1800, L501.2300, L300.4310, L300.3900, L501.5200 ####[facility] [address] [place], [address] Bedside Glucoseon 01-19-2025 FINGERSTICK GLU 225 mg/dL High [address] [place] [address] Comment on above: Result Comment: BRISA GEMENT OF PATIENT CARE PER NURSING PROTOCOL Performed By: #### L 501.080 ####[facility] [address] [place], [address] FINGERSTICK GLU 268 mg/dL High [address] [place] [address] Comment on above: Result Comment: BRISA GEMENT OF PATIENT CARE PER NURSING PROTOCOL Performed By: #### L 501.080 ####[facility] [address] [place], [address] FINGERSTICK GLU 187 mg/dL High [address] [place] [address] Comment on above: Result Comment: BRISA GEMENT OF PATIENT CARE PER NURSING PROTOCOL Performed By: #### L 501.080 ####[facility] [address] [place], [address] FINGERSTICK GLU 198 mg/dL High [address] [place] [address] Comment on above: Result Comment: BRISA GEMENT OF PATIENT CARE PER NURSING PROTOCOL Performed By: #### L 501.080 ####[facility] [address] [place], [address] Bilirubin directOrdered By: Anurag Irene on 01-19-2025 Bilirubin.direct [Mass/Vol] 1.00 mg/dL High 0.00-0.30 [facility] Bilirubin, Directon 01-20-20 25 Bilirubin.direct [Mass/Vol] 1.00 mg/dL High 0.00-0.30 [facility] Comment on above: Performed By: #### L 501.4700, L100.0100, L500.4050 ####[facility] [address] [place], [address] Body Fluid Culton 01-19-2025 BFC Culture exhibits no growth. Normal [facility] Comment on above: Performed By: #### L 200.0200, L350.1000, M100.2900, M100.4001, M100.2000 ####[facility] [address] [place], [address] CBC W/Diff, Automatedon 01-02 Absolute Lymph 1.08 X10 3/uL Normal 0.83-4.51 [facility] Comment on above: Performed By: #### L 501.4700, L100.0100, L500.4050 ####[facility] [address] [place], [address] Absolute Neut 5.4 X10 3/uL Normal 2.0-7.7 [facility] Comment on above: Performed By: #### L 501.4700, L100.0100, L500.4050 ####[facility] [address] [place], [address] Basophils/100 WBC (Bld) 0.5 % Normal 0-1 [facility] Comment on above: Performed By: #### L 501.4700, L100.0100, L500.4050 ####[facility] [address] [place], [address] Eosinophils/100 WBC (Bld) 5.8 % High 0-5 [facility] Comment on above: Performed By: #### L 501.4700, L100.0100, L500.4050 ####[facility] [address] [place], [address] Erythrocyte distribution width (RBC) [Ratio] 18.6 % High 11.6-14.6 [facility] Comment on above: Performed By: #### L 501.4700, L100.0100, L500.4050 ####[facility] [address] [place], [address] Hematocrit (Bld) [Volume fraction] 22.3 % Low 40-54 [facility] Comment on above: Performed By: #### L 501.4700, L100.0100, L500.4050 ####[facility] [address] [place], [address] Hemoglobin (Bld) [Mass/Vol] 7.6 g/dL Low 13.0-16.5 [facility] Comment on above: Performed By: #### L 501.4700, L100.0100, L500.4050 ####[facility] [address] [place], [address] IG% 1.400 High 0.0-0.9 [facility] Comment on above: Result Comment: IG% - Immature Granulocytes (promyelocytes, myelocytes andmetamyelocytes) > 1% indicates that a LEFT SHIFT is Present. Performed By: #### L 501.4700, L100.0100, L500.4050 ####[facility] [address] [place], [address] Lymphocytes/100 WBC (Bld) 13.6 % Low 19-41 [facility] Comment on above: Performed By: #### L 501.4700, L100.0100, L500.4050 ####[facility] [address] [place], [address] MCH (RBC) [Entitic mass] 30.3 pg Normal 27.0-32.0 [facility] Comment on above: Performed By: #### L 501.4700, L100.0100, L500.4050 ####[facility] [address] [place], [address] MCHC (RBC) [Mass/Vol] 34.1 g/dL Normal 32-36 [facility] Comment on above: Performed By: #### L 501.4700, L100.0100, L500.4050 ####[facility] [address] [place], [address] MCV (RBC) [Entitic vol] 88.8 fL Normal 80-94 [facility] Comment on above: Performed By: #### L 501.4700, L100.0100, L500.4050 ####[facility] [address] [place], [address] Monocytes/100 WBC (Bld) 11.0 % High 0-10 [facility] Comment on above: Performed By: #### L 501.4700, L100.0100, L500.4050 ####[facility] [address] [place], [address] Neutrophils/100 WBC (Bld) 67.7 % Normal 47-70 [facility] Comment on above: Performed By: #### L 501.4700, L100.0100, L500.4050 ####[facility] [address] [place], [address] Nucleated RBC (Bld) [#/Vol] 0 10*3/uL Normal 0-5 [facility] Comment on above: Performed By: #### L 501.4700, L100.0100, L500.4050 ####[facility] [address] [place], [address] Platelet mean volume (Bld) [Entitic vol] 11.1 fL Normal 6.2-12.0 [facility] Comment on above: Performed By: #### L 501.4700, L100.0100, L500.4050 ####[facility] [address] [place], [address] Platelets (Bld) [#/Vol] 107 10*3/uL Low 150-450 [facility] Comment on above: Performed By: #### L 501.4700, L100.0100, L500.4050 ####[facility] [address] [place], [address] RBC (Bld) [#/Vol] 2.51 10*6/uL Low 4.6-6.2 [facility] Comment on above: Performed By: #### L 501.4700, L100.0100, L500.4050 ####[facility] [address] [place], [address] RDW SD 59.0 fl High 35.1-43.9 [facility] Comment on above: Performed By: #### L 501.4700, L100.0100, L500.4050 ####[facility] [address] [place], [address] WBC (Bld) [#/Vol] 7.9 10*3/uL Normal 4.4-11.0 [facility] Comment on above: Performed By: #### L 501.4700, L100.0100, L500.4050 ####[facility] [address] [place], [address] [facility] 01-19-2025 Albumin [Mass/Vol] 2.2 g/dL Low 3.5-5.0 [facility] Comment on above: Performed By: #### L 501.4700, L100.0100, L500.4050 ####[facility] [address] [place], [address] Albumin/Globulin [Mass ratio] 0.9 {ratio} Normal 0.9-2.4 [facility] Comment on above: Performed By: #### L 501.4700, L100.0100, L500.4050 ####[facility] [address] [place], [address] ALK PHOS 225 U/L High 40-129 [facility] Comment on above: Performed By: #### L 501.4700, L100.0100, L500.4050 ####[facility] [address] [place], [address] ALT [Catalytic activity/Vol] 34 U/L Normal <=46 [facility] Comment on above: Performed By: #### L 501.4700, L100.0100, L500.4050 ####[facility] [address] [place], [address] AST [Catalytic activity/Vol] 52 U/L High <=37 [facility] Comment on above: Performed By: #### L 501.4700, L100.0100, L500.4050 ####[facility] [address] [place], [address] Bilirubin [Mass/Vol] 1.70 mg/dL High 0.00-1.30 [facility] Comment on above: Performed By: #### L 501.4700, L100.0100, L500.4050 ####[facility] [address] [place], [address] BUN/CRE 10.4 RATIO Normal 10-20 [facility] Comment on above: Performed By: #### L 501.4700, L100.0100, L500.4050 ####[facility] [address] [place], [address] Calcium [Mass/Vol] 7.9 mg/dL Normal 7.6-11.0 [facility] Comment on above: Performed By: #### L 501.4700, L100.0100, L500.4050 ####[facility] [address] [place], [address] Chloride [Moles/Vol] 94 mmol/L Low 98-108 [facility] Comment on above: Performed By: #### L 501.4700, L100.0100, L500.4050 ####[facility] [address] [place], [address] CO2 [Moles/Vol] 30.7 mmol/L Normal 21.0-32.0 [facility] Comment on above: Performed By: #### L 501.4700, L100.0100, L500.4050 ####[facility] [address] [place], [address] Creatinine [Mass/Vol] 1.05 mg/dL Normal 0.70-1.20 [facility] Comment on above: Performed By: #### L 501.4700, L100.0100, L500.4050 ####[facility] [address] [place], [address] ECRCL 93.35 ml/min Normal 50-250 [facility] Comment on above: Performed By: #### L 501.4700, L100.0100, L500.4050 ####[facility] [address] [place], [address] GAP 7 Normal 5-15 [facility] Comment on above: Performed By: #### L 501.4700, L100.0100, L500.4050 ####[facility] [address] [place], [address] GFR/1.73 sq M.predicted among non-blacks MDRD (S/P/Bld) [Vol rate/Area] 82 mL/min/{1.73_m2} Normal >60 [facility] Comment on above: Result Comment: mL/m in/1.73m2 CKD-EPI Creatinine Equation (2020) Performed By: #### L 501.4700, L100.0100, L500.4050 ####[facility] [address] [place], [address] Globulin (S) [Mass/Vol] 2.6 g/dL Normal 2.2-4.2 [facility] Comment on above: Performed By: #### L 501.4700, L100.0100, L500.4050 ####[facility] [address] [place], [address] Glucose [Mass/Vol] 220 mg/dL High 70-99 [facility] Comment on above: Performed By: #### L 501.4700, L100.0100, L500.4050 ####[facility] [address] [place], [address] Potassium [Moles/Vol] 3.0 mmol/L Low 3.3-5.1 [facility] Comment on above: Performed By: #### L 501.4700, L100.0100, L500.4050 ####[facility] [address] [place], [address] Sodium [Moles/Vol] 132 mmol/L Low 133-145 [facility] Comment on above: Performed By: #### L 501.4700, L100.0100, L500.4050 ####[facility] [address] [place], [address] T PROT 4.8 g/dL Low 5.9-8.4 [facility] Comment on above: Performed By: #### L 501.4700, L100.0100, L500.4050 ####[facility] [address] [place], [address] Urea nitrogen [Mass/Vol] 11 mg/dL Normal 4-19 [facility] Comment on above: Performed By: #### L 501.4700, L100.0100, L500.4050 ####[facility] [address] [place], [address] Gram Stainon 01-19-2025 GS Centrifuged Specimen ? Culture performed on centrifuged specimen Gram Stain No organisms seen No cells seen Normal [facility] Comment on above: Performed By: #### L 200.0200, L350.1000, M100.2900, M100.4001, M100.2000 ####[facility] [address] [place], [address] Liver Profileon 01-19-2025 ALB Normal 3.5-5.0 [facility] Comment on above: Result Comment: MOVE D TO DIFFERENT REQ- SEE C50 Performed By: #### L 500.3400 ####[facility] [address] [place], [address] ALK PHOS Normal 40-129 [facility] Comment on above: Result Comment: MOVE D TO DIFFERENT REQ- SEE C50 Performed By: #### L 500.3400 ####[facility] [address] [place], [address] ALT Normal <=46 [facility] Comment on above: Result Comment: MOVE D TO DIFFERENT REQ- SEE C50 Performed By: #### L 500.3400 ####[facility] [address] [place], [address] AST Normal <=37 [facility] Comment on above: Result Comment: MOVE D TO DIFFERENT REQ- SEE C50 Performed By: #### L 500.3400 ####[facility] [address] [place], [address] D BILI Normal 0.00-0.30 [facility] Comment on above: Result Comment: MOVE D TO DIFFERENT REQ- SEE C50 Performed By: #### L 500.3400 ####[facility] [address] [place], [address] T BILI Normal 0.00-1.30 [facility] Comment on above: Result Comment: MOVE D TO DIFFERENT REQ- SEE C50 Performed By: #### L 500.3400 ####[facility] [address] [place], [address] T PROT Normal 5.9-8.4 [facility] Comment on above: Result Comment: MOVE D TO DIFFERENT REQ- SEE C50 Performed By: #### L 500.3400 ####[facility] [address] [place], [address] Magnesiumon 01-19-2025 Magnesium [Mass/Vol] 1.7 mg/dL Normal 1.5-2.2 [facility] Comment on above: Performed By: #### L 501.1800, L501.2300, L300.4310, L300.3900, L501.5200 ####[facility] [address] [place], [address] Magnesium measurement (mass/ volume)Ordered By: Rosendo Renee on 01-19-2025 Magnesium (Unsp spec) [Mass/Vol] 1.7 mg/dL 1.5-2.2 [facility] Partial Thromboplast Timeon 01-19-2025 aPTT Coag (Bld) [Time] 46.6 s High 24.1-36.2 [facility] Comment on above: Performed By: #### L 501.1800, L501.2300, L300.4310, L300.3900, L501.5200 ####[facility] [facility] [address] [place], [address] Phosphoruson 01-19-2025 Phosphate [Mass/Vol] 3.5 mg/dL Normal 2.7-4.5 [facility] Comment on above: Performed By: #### L 501.1800, L501.2300, L300.4310, L300.3900, L501.5200 ####[facility] [address] [place], [address] Prothrombin Time w/INRon INR Coag (PPP) [Relative time] 2.0 {INR} Normal [facility] Comment on above: Performed By: #### L 501.1800, L501.2300, L300.4310, L300.3900, L501.5200 ####[facility] [address] [place], [address] PT Coag (PPP) [Time] 22.8 s High 11.7-14.9 [facility] Comment on above: Performed By: #### L 501.1800, L501.2300, L300.4310, L300.3900, L501.5200 ####[facility] [address] [place], [address] Prothrombin timeOrdered By: Rosendo Renee on 01-19-2025 PT Coag (PPP) [Time] 22.8 s High 11.7-14.9 [facility] Abdomen Limitedon 01-18-2025 Abdomen Limited Normal [facility] Anaerobic cultureOrdered By: Anurag Ireen on 01-18-2025 Bacteria identified Anaer cx Nom (Unsp spec) No growth in 5 days. [facility] Basic Metabolic Profile (BMP )on 01-18-2025 BUN/CRE 9.8 RATIO Low 10-20 [facility] Comment on above: Performed By: #### L 500.2500 ####[facility] [address] [place], [address] Calcium [Mass/Vol] 7.7 mg/dL Normal 7.6-11.0 [facility] Comment on above: Performed By: #### L 500.2500 ####[facility] [address] [place], [address] Chloride [Moles/Vol] 92 mmol/L Low 98-108 [facility] Comment on above: Performed By: #### L 500.2500 ####[facility] [address] [place], [address] CO2 [Moles/Vol] 31.5 mmol/L Normal 21.0-32.0 [facility] Comment on above: Performed By: #### L 500.2500 ####[facility] [address] [place], [address] Creatinine [Mass/Vol] 0.85 mg/dL Normal 0.70-1.20 [facility] Comment on above: Performed By: #### L 500.2500 ####[facility] [address] [place], [address] ECRCL 116.49 ml/min Normal 50-250 [facility] Comment on above: Performed By: #### L 500.2500 ####[facility] [address] [place], [address] GAP 8 Normal 5-15 [facility] Comment on above: Performed By: #### L 500.2500 ####[facility] [address] [place], [address] GFR/1.73 sq M.predicted among non-blacks MDRD (S/P/Bld) [Vol rate/Area] 101 mL/min/{1.73_m2} Normal >60 [facility] Comment on above: Result Comment: mL/m in/1.73m2 CKD-EPI Creatinine Equation (2020) Performed By: #### L 500.2500 ####[facility] [address] [place], [address] Glucose [Mass/Vol] 228 mg/dL High 70-99 [facility] Comment on above: Performed By: #### L 500.2500 ####[facility] [address] [place], [address] Potassium [Moles/Vol] 2.8 mmol/L Low 3.3-5.1 [facility] Comment on above: Performed By: #### L 500.2500 ####[facility] [address] [place], [address] Sodium [Moles/Vol] 132 mmol/L Low 133-145 [facility] Comment on above: Performed By: #### L 500.2500 ####[facility] [address] [place], [address] Urea nitrogen [Mass/Vol] 8 mg/dL Normal 4-19 [facility] Comment on above: Performed By: #### L 500.2500 ####[facility] [address] [place], [address] Bedside Glucoseon 01-18-2025 FINGERSTICK GLU 250 mg/dL High [address] [place] [address] Comment on above: Result Comment: BRISA GEMENT OF PATIENT CARE PER NURSING PROTOCOL Performed By: #### L 501.080 ####[facility] [address] [place], [address] FINGERSTICK GLU 158 mg/dL High [address] [place] [address] Comment on above: Result Comment: BRISA GEMENT OF PATIENT CARE PER NURSING PROTOCOL Performed By: #### L 501.080 ####[facility] [address] [place], [address] FINGERSTICK GLU 142 mg/dL High [address] [place] [address] Comment on above: Result Comment: BRISA GEMENT OF PATIENT CARE PER NURSING PROTOCOL Performed By: #### L 501.080 ####[facility] [address] [place], [address] FINGERSTICK GLU 171 mg/dL High [address] [place] [address] Comment on above: Result Comment: BRISA GEMENT OF PATIENT CARE PER NURSING PROTOCOL Performed By: #### L 501.080 ####[facility] [address] [place], [address] Body fluid appearance (nomin al result)Ordered By: Anurag Irene on 01-18-2025 Appearance (Body fld) CLEAR [facility] Body fluid color determinati onOrdered By: Anurag Irene on 01-18-2025 Color (Body fld) LT YEL [facility] Body fluid cultureOrdered By : Anurag Irene on 01-18-2025 Microbial culture, body fluid Culture exhibits no growth. [facility] Body fluid leukocytes count (number/volume)Ordered By: Anurag Irene on 01-18-2025 WBC (Body fld) [#/Vol] 0.143 10*3/uL [facility] Body fluid lymphocytes/100 l eukocytesOrdered By: Anurag Irene on 01-18-2025 Lymphocytes/100 WBC (Body fld) 24 % [facility] Body fluid macrophage countO rdered By: Anurag Irene on 01-18-2025 Macrophages (Body fld) [#/Vol] 46 % [facility] Body fluid mesothelial cell percentageOrdered By: Anurag Irene on 01-18-2025 Mesothelial cells/100 WBC (Body fld) 7 % [facility] Body fluid mononuclear cell percentageOrdered By: Anurag Irene on 01-18-2025 Mononuclear cells/100 WBC (Body fld) 75.6 % [facility] Body fluid other cell count as percentage of leukocytesOrdered By: Anurag Irene on 01-18-2025 Other cells/100 WBC (Body fld) 7 % [facility] Other cells/100 WBC (Body fld) PITCH FLAKER [facility] Body fluid protein measureme nt (mass/volume)Ordered By: Anurag Irene on 01-18-2025 Protein (Body fld) [Mass/Vol] 0.3 g/dL Not Establ. [facility] Body fluid segmented neutrop hils count (number/volume)Ordered By: Anurag Irene on 01-18-2025 Segmented neutrophils (Body fld) [#/Vol] 20 % [facility] Body fluid total cell countO rdered By: Anurag Irene on 01-18-2025 Cells Counted Total (Body fld) [#] 0.172 10^3/ul [facility] CBC W/Diff, Automatedon 01-02 Absolute Lymph 1.13 X10 3/uL Normal 0.83-4.51 [facility] Comment on above: Performed By: #### L 100.0100 ####[facility] [address] [place], [place], [id number] Absolute Neut 5.5 X10 3/uL Normal 2.0-7.7 [facility] Comment on above: Performed By: #### L 100.0100 ####[facility] [address] [place], [address] Basophils/100 WBC (Bld) 0.6 % Normal 0-1 [facility] Comment on above: Performed By: #### L 100.0100 ####[facility] [address] [place], [address] Eosinophils/100 WBC (Bld) 6.1 % High 0-5 [facility] Comment on above: Performed By: #### L 100.0100 ####[facility] [address] [place], [address] Erythrocyte distribution width (RBC) [Ratio] 18.7 % High 11.6-14.6 [facility] Comment on above: Performed By: #### L 100.0100 ####[facility] [address] [place], [address] Hematocrit (Bld) [Volume fraction] 22.6 % Low 40-54 [facility] Comment on above: Performed By: #### L 100.0100 ####[facility] [address] [place], [address] Hemoglobin (Bld) [Mass/Vol] 7.7 g/dL Low 13.0-16.5 [facility] Comment on above: Performed By: #### L 100.0100 ####[facility] [address] [place], [address] IG% 1.200 High 0.0-0.9 [facility] Comment on above: Result Comment: IG% - Immature Granulocytes (promyelocytes, myelocytes andmetamyelocytes) > 1% indicates that a LEFT SHIFT is Present. Performed By: #### L 100.0100 ####[facility] [address] [place], [address] Lymphocytes/100 WBC (Bld) 14.0 % Low 19-41 [facility] Comment on above: Performed By: #### L 100.0100 ####[facility] [address] [place], [address] MCH (RBC) [Entitic mass] 30.1 pg Normal 27.0-32.0 [facility] Comment on above: Performed By: #### L 100.0100 ####[facility] [address] [place], [address] MCHC (RBC) [Mass/Vol] 34.1 g/dL Normal 32-36 [facility] Comment on above: Performed By: #### L 100.0100 ####[facility] [address] [place], [address] MCV (RBC) [Entitic vol] 88.3 fL Normal 80-94 [facility] Comment on above: Performed By: #### L 100.0100 ####[facility] [address] [place], [address] Monocytes/100 WBC (Bld) 10.0 % Normal 0-10 [facility] Comment on above: Performed By: #### L 100.0100 ####[facility] [address] [place], [address] Neutrophils/100 WBC (Bld) 68.1 % Normal 47-70 [facility] Comment on above: Performed By: #### L 100.0100 ####[facility] [address] [place], [address] Nucleated RBC (Bld) [#/Vol] 0 10*3/uL Normal 0-5 [facility] Comment on above: Performed By: #### L 100.0100 ####[facility] [address] [place], [address] Platelet mean volume (Bld) [Entitic vol] 10.5 fL Normal 6.2-12.0 [facility] Comment on above: Performed By: #### L 100.0100 ####[facility] [address] [place], [address] Platelets (Bld) [#/Vol] 107 10*3/uL Low 150-450 [facility] Comment on above: Performed By: #### L 100.0100 ####[facility] [address] [place], [address] RBC (Bld) [#/Vol] 2.56 10*6/uL Low 4.6-6.2 [facility] Comment on above: Performed By: #### L 100.0100 ####[facility] [address] [place], [address] RDW SD 58.9 fl High 35.1-43.9 [facility] Comment on above: Performed By: #### L 100.0100 ####[facility] [address] [place], [address] WBC (Bld) [#/Vol] 8.1 10*3/uL Normal 4.4-11.0 [facility] Comment on above: Performed By: #### L 100.0100 ####[facility] [address] [place], [address] Cytology report of Body flui d Cyto stainOrdered By: Anurag Irene on 01-18-2025 Cytology report Cyto stain Doc (Body fld) SEE PATHOLOGY REPORT [facility] Cytology, Body Fluid / CSFon 01-18-2025 CYTOLOGY,BF/CSF SEE PATHOLOGY REPORT Normal [facility] Comment on above: Result Comment: Spec imen submitted to Anatomical Pathology Department fortesting. Performed By: #### L 200.0200, L350.1000, M100.2900, M100.4001, M100.2000 ####[facility] [address] [place], [address] Glucose, Body Fluidon 2024 GLUC, BODY FLD 154 mg/dL Normal Not Establ. [facility] Comment on above: Performed By: #### L 503.0100, L503.0300 ####[facility] [address] [place], [address] Gram stainOrdered By: Anuradha Irene on 01-18-2025 Microscopic observation Gram stain Nom (Unsp spec) [facility] Magnesiumon 01-18-2025 Magnesium [Mass/Vol] 1.6 mg/dL Normal 1.5-2.2 [facility] Comment on above: Performed By: #### L 501.2300, L501.5200 ####[facility] [address] [place], [address] Monocyte detectionOrdered By : Anurag Irene on 01-18-2025 Monocytes/100 WBC (Bld) 3 % [facility] No Panel InformationOrdered By: Anurag Irene on 01-18-2025 218 /mm3 [facility] SEE COMMENT [facility] Paracentesis with USon 01-18 Paracentesis with US Normal [facility] Pathologist interpretation o f Body fluid testsOrdered By: Anurag Irene on 01-18-2025 Pathologist interpretation (Body fld) [Interp] Reviewed [facility] Phosphoruson 01-18-2025 Phosphate [Mass/Vol] 3.7 mg/dL Normal 2.7-4.5 [facility] Comment on above: Performed By: #### L 501.2300, L501.5200 ####[facility] [address] [place], [address] Protein, Body Fluidon 2024 Protein [Mass/Vol] 0.3 g/dL Normal Not Establ. [facility] Comment on above: Performed By: #### L 503.0100, L503.0300 ####[facility] [address] [place], [address] Prothrombin Time w/INRon INR Coag (PPP) [Relative time] 2.0 {INR} Normal [facility] Comment on above: Performed By: #### L 300.3900 ####[facility] [address] [place], [address] PT Coag (PPP) [Time] 22.9 s High 11.7-14.9 [facility] Comment on above: Performed By: #### L 300.3900 ####[facility] [address] [place], [address] Special Stain Group IIon Special Stain Group II Normal [facility] Comment on above: Performed By: #### P SSII ####[facility] [address] [place], [address] Specimen source identificati on of body fluidOrdered By: Anurag Irene on 01-18-2025 Specimen source Nom (Body fld) PERITONEAL FLUID [facility] Stool Occult Blood iFOBon STOB Negative Normal [facility] Comment on above: Performed By: #### M 100.7900 ####[facility] [address] [place], [address] Stool gastrointestinal hemog lobin detection by immunologic methodOrdered By: Cielo Tovar on 01-18-2025 Lower GI hemoglobin IA Ql (Stl) [facility] Bedside Glucoseon 01-17-2025 FINGERSTICK GLU 180 mg/dL High 74-106 [facility] Comment on above: Result Comment: BRISA GEMENT OF PATIENT CARE PER NURSING PROTOCOL Performed By: #### L 501.080 ####[facility] [address] [place], [address] FINGERSTICK GLU 236 mg/dL High 74-106 [facility] Comment on above: Result Comment: BRISA GEMENT OF PATIENT CARE PER NURSING PROTOCOL Performed By: #### L 501.080 ####[facility] [address] [place], [address] FINGERSTICK GLU 141 mg/dL High 74-106 [facility] Comment on above: Result Comment: BRISA GEMENT OF PATIENT CARE PER NURSING PROTOCOL Performed By: #### L 501.080 ####[facility] [address] [place], [address] FINGERSTICK GLU 173 mg/dL High 74-106 [facility] Comment on above: Result Comment: BRISA GEMENT OF PATIENT CARE PER NURSING PROTOCOL Performed By: #### L 501.080 ####[facility] [address] [place], [address] CBC W/Diff, Automatedon 01-02-2024 Absolute Lymph 1.09 X10 3/uL Normal 0.83-4.51 [facility] Comment on above: Performed By: #### L 100.0100 ####[facility] [address] [place], [address] Absolute Neut 5.7 X10 3/uL Normal 2.0-7.7 [facility] Comment on above: Performed By: #### L 100.0100 ####[facility] [address] [place], [address] Basophils/100 WBC (Bld) 0.5 % Normal 0-1 [facility] Comment on above: Performed By: #### L 100.0100 ####[facility] [address] [place], [address] Eosinophils/100 WBC (Bld) 6.8 % High 0-5 [facility] Comment on above: Performed By: #### L 100.0100 ####[facility] [address] [place], [address] Erythrocyte distribution width (RBC) [Ratio] 18.8 % High 11.6-14.6 [facility] Comment on above: Performed By: #### L 100.0100 ####[facility] [address] [place], [address] Hematocrit (Bld) [Volume fraction] 22.2 % Low 40-54 [facility] Comment on above: Performed By: #### L 100.0100 ####[facility] [address] [place], [address] Hemoglobin (Bld) [Mass/Vol] 7.5 g/dL Low 13.0-16.5 [facility] Comment on above: Performed By: #### L 100.0100 ####[facility] [address] [place], [address] IG% 1.100 High 0.0-0.9 [facility] Comment on above: Result Comment: IG% - Immature Granulocytes (promyelocytes, myelocytes andmetamyelocytes) > 1% indicates that a LEFT SHIFT is Present. Performed By: #### L 100.0100 ####[facility] [address] [place], [address] Lymphocytes/100 WBC (Bld) 12.9 % Low 19-41 [facility] Comment on above: Performed By: #### L 100.0100 ####[facility] [address] [place], [address] MCH (RBC) [Entitic mass] 30.0 pg Normal 27.0-32.0 [facility] Comment on above: Performed By: #### L 100.0100 ####[facility] [address] [place], [address] MCHC (RBC) [Mass/Vol] 33.8 g/dL Normal 32-36 [facility] Comment on above: Performed By: #### L 100.0100 ####[facility] [address] [place], [address] MCV (RBC) [Entitic vol] 88.8 fL Normal 80-94 [facility] Comment on above: Performed By: #### L 100.0100 ####[facility] [address] [place], [address] Monocytes/100 WBC (Bld) 11.5 % High 0-10 [facility] Comment on above: Performed By: #### L 100.0100 ####[facility] [address] [place], [address] Neutrophils/100 WBC (Bld) 67.2 % Normal 47-70 [facility] Comment on above: Performed By: #### L 100.0100 ####[facility] [address] [place], [address] Nucleated RBC (Bld) [#/Vol] 0 10*3/uL Normal 0-5 [facility] Comment on above: Performed By: #### L 100.0100 ####[facility] [address] [place], [address] Platelet mean volume (Bld) [Entitic vol] 10.7 fL Normal 6.2-12.0 [facility] Comment on above: Performed By: #### L 100.0100 ####[facility] [address] [place], [address] Platelets (Bld) [#/Vol] 109 10*3/uL Low 150-450 [facility] Comment on above: Performed By: #### L 100.0100 ####[facility] [address] [place], [address] RBC (Bld) [#/Vol] 2.50 10*6/uL Low 4.6-6.2 [facility] Comment on above: Performed By: #### L 100.0100 ####[facility] [address] [place], [address] RDW SD 58.8 fl High 35.1-43.9 [facility] Comment on above: Performed By: #### L 100.0100 ####[facility] [address] [place], [address] WBC (Bld) [#/Vol] 8.4 10*3/uL Normal 4.4-11.0 [facility] Comment on above: Performed By: #### L 100.0100 ####[facility] [address] [place], [address] Bedside Glucoseon 01-16-2024 FINGERSTICK GLU 227 mg/dL High 74-106 [facility] Comment on above: Result Comment: BRISA GEMENT OF PATIENT CARE PER NURSING PROTOCOL Performed By: #### L 501.080 ####[facility] [address] [place], [address] FINGERSTICK GLU 202 mg/dL High 74-106 [facility] Comment on above: Result Comment: BRISA GEMENT OF PATIENT CARE PER NURSING PROTOCOL Performed By: #### L 501.080 ####[facility] [address] [place], [address] FINGERSTICK GLU 177 mg/dL High 74-106 [facility] Comment on above: Result Comment: BRISA GEMENT OF PATIENT CARE PER NURSING PROTOCOL Performed By: #### L 501.080 ####[facility] [address] [place], [address] FINGERSTICK GLU 173 mg/dL High 74-106 [facility] Comment on above: Result Comment: BRISA GEMENT OF PATIENT CARE PER NURSING PROTOCOL Performed By: #### L 501.080 ####[facility] [address] [place], [address] CBC W/Diff, Automatedon 06-1 Absolute Lymph 1.16 X10 3/uL Normal 0.83-4.51 [facility] Comment on above: Performed By: #### L 100.0100 ####[facility] [address] [place], [address] Absolute Neut 5.2 X10 3/uL Normal 2.0-7.7 [facility] Comment on above: Performed By: #### L 100.0100 ####[facility] [address] [place], [address] Basophils/100 WBC (Bld) 0.4 % Normal 0-1 [facility] Comment on above: Performed By: #### L 100.0100 ####[facility] [address] [place], [address] Eosinophils/100 WBC (Bld) 6.5 % High 0-5 [facility] Comment on above: Performed By: #### L 100.0100 ####[facility] [address] [place], [address] Erythrocyte distribution width (RBC) [Ratio] 18.5 % High 11.6-14.6 [facility] Comment on above: Performed By: #### L 100.0100 ####[facility] [address] [place], [address] Hematocrit (Bld) [Volume fraction] 22.8 % Low 40-54 [facility] Comment on above: Performed By: #### L 100.0100 ####[facility] [address] [place], [address] Hemoglobin (Bld) [Mass/Vol] 7.8 g/dL Low 13.0-16.5 [facility] Comment on above: Performed By: #### L 100.0100 ####[facility] [address] [place], [address] IG% 0.900 Normal 0.0-0.9 [facility] Comment on above: Result Comment: IG% - Immature Granulocytes (promyelocytes, myelocytes andmetamyelocytes) > 1% indicates that a LEFT SHIFT is Present. Performed By: #### L 100.0100 ####[facility] [address] [place], [address] Lymphocytes/100 WBC (Bld) 14.6 % Low 19-41 [facility] Comment on above: Performed By: #### L 100.0100 ####[facility] [address] [place], [address] MCH (RBC) [Entitic mass] 30.2 pg Normal 27.0-32.0 [facility] Comment on above: Performed By: #### L 100.0100 ####[facility] [address] [place], [address] MCHC (RBC) [Mass/Vol] 34.2 g/dL Normal 32-36 [facility] Comment on above: Performed By: #### L 100.0100 ####[facility] [address] [place], [address] MCV (RBC) [Entitic vol] 88.4 fL Normal 80-94 [facility] Comment on above: Performed By: #### L 100.0100 ####[facility] [address] [place], [address] Monocytes/100 WBC (Bld) 12.7 % High 0-10 [facility] Comment on above: Performed By: #### L 100.0100 ####[facility] [address] [place], [address] Neutrophils/100 WBC (Bld) 64.9 % Normal 47-70 [facility] Comment on above: Performed By: #### L 100.0100 ####[facility] [address] [place], [address] Nucleated RBC (Bld) [#/Vol] 0 10*3/uL Normal 0-5 [facility] Comment on above: Performed By: #### L 100.0100 ####[facility] [address] [place], [address] Platelet mean volume (Bld) [Entitic vol] 10.8 fL Normal 6.2-12.0 [facility] Comment on above: Performed By: #### L 100.0100 ####[facility] [address] [place], [address] Platelets (Bld) [#/Vol] 111 10*3/uL Low 150-450 [facility] Comment on above: Performed By: #### L 100.0100 ####[facility] [address] [place], [address] RBC (Bld) [#/Vol] 2.58 10*6/uL Low 4.6-6.2 [facility] Comment on above: Performed By: #### L 100.0100 ####[facility] [address] [place], [address] RDW SD 57.9 fl High 35.1-43.9 [facility] Comment on above: Performed By: #### L 100.0100 ####[facility] [address] [place], [address] WBC (Bld) [#/Vol] 7.9 10*3/uL Normal 4.4-11.0 [facility] Comment on above: Performed By: #### L 100.0100 ####[facility] [address] [place], [address] Comprehensive Metabolic Prof ohon 01-16-2025 Albumin [Mass/Vol] 2.2 g/dL Low 3.5-5.0 [facility] Comment on above: Performed By: #### L 500.4050 ####[facility] [address] [place], [address] Albumin/Globulin [Mass ratio] 0.9 {ratio} Normal 0.9-2.4 [facility] Comment on above: Performed By: #### L 500.4050 ####[facility] [address] [place], [address] ALK PHOS 247 U/L High 40-129 [facility] Comment on above: Performed By: #### L 500.4050 ####[facility] [address] [place], [address] ALT [Catalytic activity/Vol] 49 U/L High <=46 [facility] Comment on above: Performed By: #### L 500.4050 ####[facility] [address] [place], [address] AST [Catalytic activity/Vol] 51 U/L High <=37 [facility] Comment on above: Performed By: #### L 500.4050 ####[facility] [address] [place], [address] Bilirubin [Mass/Vol] 1.89 mg/dL High 0.00-1.30 [facility] Comment on above: Performed By: #### L 500.4050 ####[facility] [address] [place], [address] BUN/CRE 7.1 RATIO Low 10-20 [facility] Comment on above: Performed By: #### L 500.4050 ####[facility] [address] [place], [address] Calcium [Mass/Vol] 7.8 mg/dL Normal 7.6-11.0 [facility] Comment on above: Performed By: #### L 500.4050 ####[facility] [address] [place], [address] Chloride [Moles/Vol] 93 mmol/L Low 98-108 [facility] Comment on above: Performed By: #### L 500.4050 ####[facility] [address] [place], [address] CO2 [Moles/Vol] 31.1 mmol/L Normal 21.0-32.0 [facility] Comment on above: Performed By: #### L 500.4050 ####[facility] [address] [place], [address] Creatinine [Mass/Vol] 0.80 mg/dL Normal 0.70-1.20 [facility] Comment on above: Performed By: #### L 500.4050 ####[facility] [address] [place], [address] ECRCL 118.59 ml/min Normal 50-250 [facility] Comment on above: Performed By: #### L 500.4050 ####[facility] [address] [place], [address] GAP 7 Normal 5-15 [facility] Comment on above: Performed By: #### L 500.4050 ####[facility] [address] [place], [address] GFR/1.73 sq M.predicted among non-blacks MDRD (S/P/Bld) [Vol rate/Area] 103 mL/min/{1.73_m2} Normal >60 [facility] Comment on above: Result Comment: mL/m in/1.73m2 CKD-EPI Creatinine Equation (2020) Performed By: #### L 500.4050 ####[facility] [address] [place], [address] Globulin (S) [Mass/Vol] 2.5 g/dL Normal 2.2-4.2 [facility] Comment on above: Performed By: #### L 500.4050 ####[facility] [address] [place], [address] Glucose [Mass/Vol] 174 mg/dL High 70-99 [facility] Comment on above: Performed By: #### L 500.4050 ####[facility] [address] [place], [place], [phone] Potassium [Moles/Vol] 3.3 mmol/L Normal 3.3-5.1 [facility] Comment on above: Performed By: #### L 500.4050 ####[facility] [address] [place], [address] Sodium [Moles/Vol] 132 mmol/L Low 133-145 [facility] Comment on above: Performed By: #### L 500.4050 ####[facility] [address] [place], [address] T PROT 4.8 g/dL Low 5.9-8.4 [facility] Comment on above: Performed By: #### L 500.4050 ####[facility] [address] [place], [address] Urea nitrogen [Mass/Vol] 6 mg/dL Normal 4-19 [facility] Comment on above: Performed By: #### L 500.4050 ####[facility] [address] [place], [place], [id number] Serum or plasma vancomycin m easurement (mass/volume)Ordered By: Cielo Tovar on 01-16-2025 Vancomycin [Mass/Vol] 7.7 ug/mL 0.0-15.0 [facility] Vancomycin, Random Levelon 0 01-16-2025 VANCO, RANDOM 7.7 ug/mL Normal 0.0-15.0 [facility] Comment on above: Result Comment: VANC OMYCIN STANDARD DRUG THERAPY: CRITICAL VALUE IS > 15.0 mg/LVANCOMYCIN HIGH INTENSITY THERAPY: CRITICAL VALUE IS > 20.0 mg/LPLEASE CONTACT PHARMACY SERVICES (#1217) FOR INTERPRETATIONOF RESULTS. THIS RESULT DOES NOT REPRESENT A PEAK OR TROUGHLEVEL FOR THIS DRUG. Performed By: #### L 501.8850 ####[facility] [address] [place], [address] Bedside Glucoseon 01-15-2025 FINGERSTICK GLU 237 mg/dL High -[address] [place] [address] Comment on above: Result Comment: BRISA GEMENT OF PATIENT CARE PER NURSING PROTOCOL Performed By: #### L 501.080 ####[facility] [address] [place], [address] FINGERSTICK GLU 240 mg/dL High [address] [place] [address] Comment on above: Result Comment: BRISA GEMENT OF PATIENT CARE PER NURSING PROTOCOL Performed By: #### L 501.080 ####[facility] [address] [place], [address] FINGERSTICK GLU 221 mg/dL High [address] [place] [address] Comment on above: Result Comment: BRISA GEMENT OF PATIENT CARE PER NURSING PROTOCOL Performed By: #### L 501.080 ####[facility] [address] [place], [address] FINGERSTICK GLU 167 mg/dL High [address] [place] [address] Comment on above: Result Comment: BRISA GEMENT OF PATIENT CARE PER NURSING PROTOCOL Performed By: #### L 501.080 ####[facility] [address] [place], [address] FINGERSTICK GLU 173 mg/dL High [address] [place] [address] Comment on above: Result Comment: BRISA GEMENT OF PATIENT CARE PER NURSING PROTOCOL Performed By: #### L 501.080 ####[facility] [address] [place], [address] CBC W/Diff, Automatedon 01-02 Absolute Lymph 1.06 X10 3/uL Normal 0.83-4.51 [facility] Comment on above: Performed By: #### L 100.0100, L500.4050 ####[facility] [address] [place], [address] Absolute Neut 5.3 X10 3/uL Normal 2.0-7.7 [facility] Comment on above: Performed By: #### L 100.0100, L500.4050 ####[facility] [address] [place], [address] Basophils/100 WBC (Bld) 0.5 % Normal 0-1 [facility] Comment on above: Performed By: #### L 100.0100, L500.4050 ####[facility] [address] [place], [address] Eosinophils/100 WBC (Bld) 6.1 % High 0-5 [facility] Comment on above: Performed By: #### L 100.0100, L500.4050 ####[facility] [address] [place], [address] Erythrocyte distribution width (RBC) [Ratio] 18.6 % High 11.6-14.6 [facility] Comment on above: Performed By: #### L 100.0100, L500.4050 ####[facility] [address] [place], [address] Hematocrit (Bld) [Volume fraction] 23.2 % Low 40-54 [facility] Comment on above: Performed By: #### L 100.0100, L500.4050 ####[facility] [address] [place], [address] Hemoglobin (Bld) [Mass/Vol] 7.9 g/dL Low 13.0-16.5 [facility] Comment on above: Performed By: #### L 100.0100, L500.4050 ####[facility] [address] [place], [address] IG% 1.000 High 0.0-0.9 [facility] Comment on above: Result Comment: IG% - Immature Granulocytes (promyelocytes, myelocytes andmetamyelocytes) > 1% indicates that a LEFT SHIFT is Present. Performed By: #### L 100.0100, L500.4050 ####[facility] [address] [place], [address] Lymphocytes/100 WBC (Bld) 13.2 % Low 19-41 [facility] Comment on above: Performed By: #### L 100.0100, L500.4050 ####[facility] [address] [place], [address] MCH (RBC) [Entitic mass] 29.8 pg Normal 27.0-32.0 [facility] Comment on above: Performed By: #### L 100.0100, L500.4050 ####[facility] [address] [place], [address] MCHC (RBC) [Mass/Vol] 34.1 g/dL Normal 32-36 [facility] Comment on above: Performed By: #### L 100.0100, L500.4050 ####[facility] [address] [place], [address] MCV (RBC) [Entitic vol] 87.5 fL Normal 80-94 [facility] Comment on above: Performed By: #### L 100.0100, L500.4050 ####[facility] [address] [place], [address] Monocytes/100 WBC (Bld) 13.6 % High 0-10 [facility] Comment on above: Performed By: #### L 100.0100, L500.4050 ####[facility] [address] [place], [address] Neutrophils/100 WBC (Bld) 65.6 % Normal 47-70 [facility] Comment on above: Performed By: #### L 100.0100, L500.4050 ####[facility] [address] [place], [address] Nucleated RBC (Bld) [#/Vol] 0 10*3/uL Normal 0-5 [facility] Comment on above: Performed By: #### L 100.0100, L500.4050 ####[facility] [address] [place], [address] Platelet mean volume (Bld) [Entitic vol] 11.0 fL Normal 6.2-12.0 [facility] Comment on above: Performed By: #### L 100.0100, L500.4050 ####[facility] [address] [place], [address] Platelets (Bld) [#/Vol] 118 10*3/uL Low 150-450 [facility] Comment on above: Performed By: #### L 100.0100, L500.4050 ####[facility] [address] [place], [address] RBC (Bld) [#/Vol] 2.65 10*6/uL Low 4.6-6.2 [facility] Comment on above: Performed By: #### L 100.0100, L500.4050 ####[facility] [address] [place], [address] RDW SD 58.1 fl High 35.1-43.9 [facility] Comment on above: Performed By: #### L 100.0100, L500.4050 ####[facility] [address] [place], [address] WBC (Bld) [#/Vol] 8.0 10*3/uL Normal 4.4-11.0 [facility] Comment on above: Performed By: #### L 100.0100, L500.4050 ####[facility] [address] [place], [address] Comprehensive Metabolic Prof ohon 01-15-2025 Albumin/Globulin [Mass ratio] 0.8 {ratio} Low 0.9-2.4 [facility] Comment on above: Performed By: #### L 100.0100, L500.4050 ####[facility] [address] [place], [address] ALK PHOS 275 U/L High 40-129 [facility] Comment on above: Performed By: #### L 100.0100, L500.4050 ####[facility] [address] [place], [address] ALT [Catalytic activity/Vol] 56 U/L High <=46 [facility] Comment on above: Performed By: #### L 100.0100, L500.4050 ####[facility] [address] [place], [address] AST [Catalytic activity/Vol] 64 U/L High <=37 [facility] Comment on above: Performed By: #### L 100.0100, L500.4050 ####[facility] [address] [place], [address] Bilirubin [Mass/Vol] 2.06 mg/dL High 0.00-1.30 [facility] Comment on above: Performed By: #### L 100.0100, L500.4050 ####[facility] [address] [place], [address] Calcium [Mass/Vol] 7.8 mg/dL Normal 7.6-11.0 [facility] Comment on above: Performed By: #### L 100.0100, L500.4050 ####[facility] [address] [place], [address] Chloride [Moles/Vol] 94 mmol/L Low 98-108 [facility] Comment on above: Performed By: #### L 100.0100, L500.4050 ####[facility] [address] [place], [address] CO2 [Moles/Vol] 26.7 mmol/L Normal 21.0-32.0 [facility] Comment on above: Performed By: #### L 100.0100, L500.4050 ####[facility] [address] [place], [address] GAP 9 Normal 5-15 [facility] Comment on above: Performed By: #### L 100.0100, L500.4050 ####[facility] [address] [place], [address] Potassium [Moles/Vol] 3.2 mmol/L Low 3.3-5.1 [facility] Comment on above: Performed By: #### L 100.0100, L500.4050 ####[facility] [address] [place], [address] Sodium [Moles/Vol] 130 mmol/L Low 133-145 [facility] Comment on above: Performed By: #### L 100.0100, L500.4050 ####[facility] [address] [place], [address] Albumin [Mass/Vol] 2.2 g/dL Low 3.5-5.0 [facility] Comment on above: Performed By: #### L 100.0100, L500.4050 ####[facility] [address] [place], [address] BUN/CRE 6.0 RATIO Low 10-20 [facility] Comment on above: Performed By: #### L 100.0100, L500.4050 ####[facility] [address] [place], [address] Creatinine [Mass/Vol] 0.82 mg/dL Normal 0.70-1.20 [facility] Comment on above: Performed By: #### L 100.0100, L500.4050 ####[facility] [address] [place], [address] ECRCL 115.58 ml/min Normal 50-250 [facility] Comment on above: Performed By: #### L 100.0100, L500.4050 ####[facility] [address] [place], [address] GFR/1.73 sq M.predicted among non-blacks MDRD (S/P/Bld) [Vol rate/Area] 102 mL/min/{1.73_m2} Normal >60 [facility] Comment on above: Result Comment: mL/m in/1.73m2 CKD-EPI Creatinine Equation (2020) Performed By: #### L 100.0100, L500.4050 ####[facility] [address] [place], [address] Globulin (S) [Mass/Vol] 2.7 g/dL Normal 2.2-4.2 [facility] Comment on above: Performed By: #### L 100.0100, L500.4050 ####[facility] [address] [place], [address] Glucose [Mass/Vol] 178 mg/dL High 70-99 [facility] Comment on above: Performed By: #### L 100.0100, L500.4050 ####[facility] [address] [place], [address] T PROT 4.9 g/dL Low 5.9-8.4 [facility] Comment on above: Performed By: #### L 100.0100, L500.4050 ####[facility] [address] [place], [address] Urea nitrogen [Mass/Vol] 5 mg/dL Normal 4-19 [facility] Comment on above: Performed By: #### L 100.0100, L500.4050 ####[facility] [address] [place], [address] Vancomycin, Random Levelon 0 01-15-2025 VANCO, RANDOM 20.7 ug/mL High 0.0-15.0 [facility] Comment on above: Result Comment: VANC OMYCIN STANDARD DRUG THERAPY: CRITICAL VALUE IS > 15.0 mg/LVANCOMYCIN HIGH INTENSITY THERAPY: CRITICAL VALUE IS > 20.0 mg/LPLEASE CONTACT PHARMACY SERVICES (#7869) FOR INTERPRETATIONOF RESULTS. THIS RESULT DOES NOT REPRESENT A PEAK OR TROUGHLEVEL FOR THIS DRUG. Performed By: #### L 501.8850 ####[facility] [address] [place], [address] Bedside Glucoseon 01-14-2025 FINGERSTICK GLU 194 mg/dL High [address] [facility] Comment on above: Result Comment: BRISA GEMENT OF PATIENT CARE PER NURSING PROTOCOL Performed By: #### L 501.080 ####[facility] [address] [place], [address] FINGERSTICK GLU 261 mg/dL High [address] [place] [address] Comment on above: Result Comment: BRISA GEMENT OF PATIENT CARE PER NURSING PROTOCOL Performed By: #### L 501.080 ####[facility] [address] [place], [address] FINGERSTICK GLU 263 mg/dL High [address] [place] [address] Comment on above: Result Comment: BRISA GEMENT OF PATIENT CARE PER NURSING PROTOCOL Performed By: #### L 501.080 ####[facility] [address] [place], [address] CBC W/Diff, Automatedon 01-02 Absolute Lymph 1.09 X10 3/uL Normal 0.83-4.51 [facility] Comment on above: Performed By: #### L 100.0100, L500.4050 ####[facility] [address] [place], [address] Absolute Neut 5.3 X10 3/uL Normal 2.0-7.7 [facility] Comment on above: Performed By: #### L 100.0100, L500.4050 ####[facility] [address] [place], [address] Basophils/100 WBC (Bld) 0.4 % Normal 0-1 [facility] Comment on above: Performed By: #### L 100.0100, L500.4050 ####[facility] [address] [place], [address] Eosinophils/100 WBC (Bld) 5.5 % High 0-5 [facility] Comment on above: Performed By: #### L 100.0100, L500.4050 ####[facility] [address] [place], [address] Erythrocyte distribution width (RBC) [Ratio] 18.5 % High 11.6-14.6 [facility] Comment on above: Performed By: #### L 100.0100, L500.4050 ####[facility] [address] [place], [address] Hematocrit (Bld) [Volume fraction] 23.2 % Low 40-54 [facility] Comment on above: Performed By: #### L 100.0100, L500.4050 ####[facility] [address] [place], [address] Hemoglobin (Bld) [Mass/Vol] 7.8 g/dL Low 13.0-16.5 [facility] Comment on above: Performed By: #### L 100.0100, L500.4050 ####[facility] [address] [place], [address] IG% 1.000 High 0.0-0.9 [facility] Comment on above: Result Comment: IG% - Immature Granulocytes (promyelocytes, myelocytes andmetamyelocytes) > 1% indicates that a LEFT SHIFT is Present. Performed By: #### L 100.0100, L500.4050 ####[facility] [address] [place], [address] Lymphocytes/100 WBC (Bld) 13.5 % Low 19-41 [facility] Comment on above: Performed By: #### L 100.0100, L500.4050 ####[facility] [address] [place], [address] MCH (RBC) [Entitic mass] 29.5 pg Normal 27.0-32.0 [facility] [facility] Comment on above: Performed By: #### L 100.0100, L500.4050 ####[facility] [address] [place], [address] MCHC (RBC) [Mass/Vol] 33.6 g/dL Normal 32-36 [facility] Comment on above: Performed By: #### L 100.0100, L500.4050 ####[facility] [address] [place], [address] MCV (RBC) [Entitic vol] 87.9 fL Normal 80-94 [facility] Comment on above: Performed By: #### L 100.0100, L500.4050 ####[facility] [address] [place], [address] Monocytes/100 WBC (Bld) 14.3 % High 0-10 [facility] Comment on above: Performed By: #### L 100.0100, L500.4050 ####[facility] [address] [place], [address] Neutrophils/100 WBC (Bld) 65.3 % Normal 47-70 [facility] Comment on above: Performed By: #### L 100.0100, L500.4050 ####[facility] [address] [place], [address] Nucleated RBC (Bld) [#/Vol] 0 10*3/uL Normal 0-5 [facility] Comment on above: Performed By: #### L 100.0100, L500.4050 ####[facility] [address] [place], [address] Platelet mean volume (Bld) [Entitic vol] 11.8 fL Normal 6.2-12.0 [facility] Comment on above: Performed By: #### L 100.0100, L500.4050 ####[facility] [address] [place], [address] Platelets (Bld) [#/Vol] 121 10*3/uL Low 150-450 [facility] Comment on above: Performed By: #### L 100.0100, L500.4050 ####[facility] [address] [place], [address] RBC (Bld) [#/Vol] 2.64 10*6/uL Low 4.6-6.2 [facility] Comment on above: Performed By: #### L 100.0100, L500.4050 ####[facility] [address] [place], [address] RDW SD 58.4 fl High 35.1-43.9 [facility] Comment on above: Performed By: #### L 100.0100, L500.4050 ####[facility] [address] [place], [address] WBC (Bld) [#/Vol] 8.1 10*3/uL Normal 4.4-11.0 [facility] Comment on above: Performed By: #### L 100.0100, L500.4050 ####[facility] [address] [place], [address] Chest without Contraston Chest without Contrast Normal [facility] Comprehensive Metabolic Prof ilon 01-14-2025 Albumin [Mass/Vol] 2.4 g/dL Low 3.5-5.0 [facility] Comment on above: Performed By: #### L 100.0100, L500.4050 ####[facility] [address] [place], [address] Albumin/Globulin [Mass ratio] 0.9 {ratio} Normal 0.9-2.4 [facility] Comment on above: Performed By: #### L 100.0100, L500.4050 ####[facility] [address] [place], [address] ALK PHOS 293 U/L High 40-129 [facility] Comment on above: Performed By: #### L 100.0100, L500.4050 ####[facility] [address] [place], [address] ALT [Catalytic activity/Vol] 61 U/L High <=46 [facility] Comment on above: Performed By: #### L 100.0100, L500.4050 ####[facility] [address] [place], [address] AST [Catalytic activity/Vol] 83 U/L High <=37 [facility] Comment on above: Performed By: #### L 100.0100, L500.4050 ####[facility] [address] [place], [address] Bilirubin [Mass/Vol] 2.64 mg/dL High 0.00-1.30 [facility] Comment on above: Performed By: #### L 100.0100, L500.4050 ####[facility] [address] [place], [address] BUN/CRE 6.4 RATIO Low 10-20 [facility] Comment on above: Performed By: #### L 100.0100, L500.4050 ####[facility] [address] [place], [address] Calcium [Mass/Vol] 7.9 mg/dL Normal 7.6-11.0 [facility] Comment on above: Performed By: #### L 100.0100, L500.4050 ####[facility] [address] [place], [address] Chloride [Moles/Vol] 95 mmol/L Low 98-108 [facility] Comment on above: Performed By: #### L 100.0100, L500.4050 ####[facility] [address] [place], [address] CO2 [Moles/Vol] 25.1 mmol/L Normal 21.0-32.0 [facility] Comment on above: Performed By: #### L 100.0100, L500.4050 ####[facility] [address] [place], [address] Creatinine [Mass/Vol] 0.86 mg/dL Normal 0.70-1.20 [facility] Comment on above: Performed By: #### L 100.0100, L500.4050 ####[facility] [address] [place], [address] ECRCL 110.10 ml/min Normal 50-250 [facility] Comment on above: Performed By: #### L 100.0100, L500.4050 ####[facility] [address] [place], [address] GAP 11 Normal 5-15 [facility] Comment on above: Performed By: #### L 100.0100, L500.4050 ####[facility] [address] [place], [address] GFR/1.73 sq M.predicted among non-blacks MDRD (S/P/Bld) [Vol rate/Area] 100 mL/min/{1.73_m2} Normal >60 [facility] Comment on above: Result Comment: mL/m in/1.73m2 CKD-EPI Creatinine Equation (2020) Performed By: #### L 100.0100, L500.4050 ####[facility] [address] [place], [address] Globulin (S) [Mass/Vol] 2.5 g/dL Normal 2.2-4.2 [facility] Comment on above: Performed By: #### L 100.0100, L500.4050 ####[facility] [address] [place], [address] Glucose [Mass/Vol] 280 mg/dL High 70-99 [facility] Comment on above: Performed By: #### L 100.0100, L500.4050 ####[facility] [address] [place], [address] Potassium [Moles/Vol] 3.0 mmol/L Low 3.3-5.1 [facility] Comment on above: Performed By: #### L 100.0100, L500.4050 ####[facility] [address] [place], [address] Sodium [Moles/Vol] 131 mmol/L Low 133-145 [facility] Comment on above: Performed By: #### L 100.0100, L500.4050 ####[facility] [address] [place], [address] T PROT 4.9 g/dL Low 5.9-8.4 [facility] Comment on above: Performed By: #### L 100.0100, L500.4050 ####[facility] [address] [place], [address] Urea nitrogen [Mass/Vol] 6 mg/dL Normal 4-19 [facility] Comment on above: Performed By: #### L 100.0100, L500.4050 ####[facility] [address] [place], [place], [address] Culture, Blood (WB)on 2024 CUB Blood cultures x2, f rom two different sites No growth in 5 days. Normal [facility] Comment on above: Performed By: #### M 200.1000 ####[facility] [address] [place], [place], [address] Magnetic resonance imaging r eportOrdered By: Kenneth Barton on 01-14-2025 Study report [facility] Work Phone: PSA,Total- Diagnosticon 01-02 PSA, DIAGNOSTIC 0.65 ng/mL Normal 0.00-4.00 [facility] Comment on above: Result Comment: This test was performed using the Haload tPSAmethod. Measured values of a patient??sample can varydepending on the testing procedure used. PSA valuesdetermined on patient samples by different testingprocedures cannot be used interchangeably. If there is achange in PSA assays while monitoring therapy, sequentialtesting should be performed to confirm baseline values. Performed By: #### L 501.9940 ####[facility] [address] [place], [place], [address] Trough vancomycin levelOrder ed By: Cielo Tovar on 01-14-2025 Vancomycin trough [Mass/Vol] 21.4 ug/mL High 5.0-15.0 [facility] Vancomycin, Trough Levelon 0 01-14-2025 VANCO, TROUGH 21.4 ug/mL High 5.0-15.0 [facility] Comment on above: Order Comment: [id number] Result Comment: Eleazar mmended goal trough ranges [...] therapy recommended for serious lifethreatening infections include:- Aplnqxjzet-Dfucrqdfjjdn-Wxayvgfyk (Ventilator/Healtcare Associated)-SepsisPLEASE CONTACT PHARMACY SERVICES (#0394) FOR INTERPRETATIONOF RESULTS. Performed By: #### L 501.8820 ####[facility] [address] [place], [address] BRCon 01-13-2025 RC Normal [facility] Comment on above: Result Comment: [id number] ON RC TRANSFUSED 01/13/25 1613 Performed By: #### B , BTS ####[facility] [address] [place], [address] Bedside Glucoseon 01-13-2025 FINGERSTICK GLU 272 mg/dL High [address] [place] [address] Comment on above: Result Comment: BRISA GEMENT OF PATIENT CARE PER NURSING PROTOCOL Performed By: #### L 501.080 ####[facility] [address] [place], [address] FINGERSTICK GLU 268 mg/dL High [address] [place] [address] Comment on above: Result Comment: BRISA GEMENT OF PATIENT CARE PER NURSING PROTOCOL Performed By: #### L 501.080 ####[facility] [address] [place], [address] FINGERSTICK GLU 249 mg/dL High [address] [place] [address] Comment on above: Result Comment: BRISA GEMENT OF PATIENT CARE PER NURSING PROTOCOL Performed By: #### L 501.080 ####[facility] [address] [place], [address] FINGERSTICK GLU 201 mg/dL High [facility]106 [facility] Comment on above: Result Comment: BRISA GEMENT OF PATIENT CARE PER NURSING PROTOCOL Performed By: #### L 501.080 ####[facility] [address] [place], [address] CBC W/Diff, Automatedon 01-02 Absolute Lymph 1.25 X10 3/uL Normal 0.83-4.51 [facility] Comment on above: Performed By: #### L 100.0100, L500.4050 ####[facility] [address] [place], [address] Absolute Neut 5.7 X10 3/uL Normal 2.0-7.7 [facility] Comment on above: Performed By: #### L 100.0100, L500.4050 ####[facility] [address] [place], [address] Basophils/100 WBC (Bld) 0.3 % Normal 0-1 [facility] Comment on above: Performed By: #### L 100.0100, L500.4050 ####[facility] [address] [place], [address] Eosinophils/100 WBC (Bld) 5.2 % High 0-5 [facility] Comment on above: Performed By: #### L 100.0100, L500.4050 ####[facility] [address] [place], [address] Erythrocyte distribution width (RBC) [Ratio] 18.6 % High 11.6-14.6 [facility] Comment on above: Performed By: #### L 100.0100, L500.4050 ####[facility] [address] [place], [address] Hematocrit (Bld) [Volume fraction] 21.0 % Low 40-54 [facility] Comment on above: Performed By: #### L 100.0100, L500.4050 ####[facility] [address] [place], [address] Hemoglobin (Bld) [Mass/Vol] 7.2 g/dL Low 13.0-16.5 [facility] Comment on above: Performed By: #### L 100.0100, L500.4050 ####[facility] [address] [place], [address] IG% 0.800 Normal 0.0-0.9 [facility] Comment on above: Result Comment: IG% - Immature Granulocytes (promyelocytes, myelocytes andmetamyelocytes) > 1% indicates that a LEFT SHIFT is Present. Performed By: #### L 100.0100, L500.4050 ####[facility] [address] [place], [address] Lymphocytes/100 WBC (Bld) 14.4 % Low 19-41 [facility] Comment on above: Performed By: #### L 100.0100, L500.4050 ####[facility] [address] [place], [address] MCH (RBC) [Entitic mass] 30.3 pg Normal 27.0-32.0 [facility] Comment on above: Performed By: #### L 100.0100, L500.4050 ####[facility] [address] [place], [address] MCHC (RBC) [Mass/Vol] 34.3 g/dL Normal 32-36 [facility] Comment on above: Performed By: #### L 100.0100, L500.4050 ####[facility] [address] [place], [address] MCV (RBC) [Entitic vol] 88.2 fL Normal 80-94 [facility] Comment on above: Performed By: #### L 100.0100, L500.4050 ####[facility] [address] [place], [address] Monocytes/100 WBC (Bld) 13.7 % High 0-10 [facility] Comment on above: Performed By: #### L 100.0100, L500.4050 ####[facility] [address] [place], [address] Neutrophils/100 WBC (Bld) 65.6 % Normal 47-70 [facility] Comment on above: Performed By: #### L 100.0100, L500.4050 ####[facility] [address] [place], [address] Nucleated RBC (Bld) [#/Vol] 0 10*3/uL Normal 0-5 [facility] Comment on above: Performed By: #### L 100.0100, L500.4050 ####[facility] [address] [place], [address] Platelet mean volume (Bld) [Entitic vol] 11.3 fL Normal 6.2-12.0 [facility] Comment on above: Performed By: #### L 100.0100, L500.4050 ####[facility] [address] [place], [address] Platelets (Bld) [#/Vol] 124 10*3/uL Low 150-450 [facility] Comment on above: Performed By: #### L 100.0100, L500.4050 ####[facility] [address] [place], [address] RBC (Bld) [#/Vol] 2.38 10*6/uL Low 4.6-6.2 [facility] Comment on above: Performed By: #### L 100.0100, L500.4050 ####[facility] [address] [place], [address] RDW SD 59.2 fl High 35.1-43.9 [facility] Comment on above: Performed By: #### L 100.0100, L500.4050 ####[facility] [address] [place], [address] WBC (Bld) [#/Vol] 8.7 10*3/uL Normal 4.4-11.0 [facility] Comment on above: Performed By: #### L 100.0100, L500.4050 ####[facility] [address] [place], [address] Comprehensive Metabolic Prof lexis 01-13-2025 Albumin [Mass/Vol] 2.3 g/dL Low 3.5-5.0 [facility] Comment on above: Performed By: #### L 100.0100, L500.4050 ####[facility] [address] [place], [address] Albumin/Globulin [Mass ratio] 0.9 {ratio} Normal 0.9-2.4 [facility] Comment on above: Performed By: #### L 100.0100, L500.4050 ####[facility] [address] [place], [address] ALK PHOS 306 U/L High 40-129 [facility] Comment on above: Performed By: #### L 100.0100, L500.4050 ####[facility] [address] [place], [address] ALT [Catalytic activity/Vol] 72 U/L High <=46 [facility] Comment on above: Performed By: #### L 100.0100, L500.4050 ####[facility] [address] [place], [address] AST [Catalytic activity/Vol] 107 U/L High <=37 [facility] Comment on above: Performed By: #### L 100.0100, L500.4050 ####[facility] [address] [place], [address] Bilirubin [Mass/Vol] 1.69 mg/dL High 0.00-1.30 [facility] Comment on above: Performed By: #### L 100.0100, L500.4050 ####[facility] [address] [place], [address] BUN/CRE 7.3 RATIO Low 10-20 [facility] Comment on above: Performed By: #### L 100.0100, L500.4050 ####[facility] [address] [place], [address] Calcium [Mass/Vol] 7.7 mg/dL Normal 7.6-11.0 [facility] Comment on above: Performed By: #### L 100.0100, L500.4050 ####[facility] [address] [place], [address] Chloride [Moles/Vol] 96 mmol/L Low 98-108 [facility] Comment on above: Performed By: #### L 100.0100, L500.4050 ####[facility] [address] [place], [address] CO2 [Moles/Vol] 25.5 mmol/L Normal 21.0-32.0 [facility] Comment on above: Performed By: #### L 100.0100, L500.4050 ####[facility] [address] [place], [address] Creatinine [Mass/Vol] 0.90 mg/dL Normal 0.70-1.20 [facility] Comment on above: Performed By: #### L 100.0100, L500.4050 ####[facility] [address] [place], [address] ECRCL 103.13 ml/min Normal 50-250 [facility] Comment on above: Performed By: #### L 100.0100, L500.4050 ####[facility] [address] [place], [address] GAP 10 Normal 5-15 [facility] Comment on above: Performed By: #### L 100.0100, L500.4050 ####[facility] [address] [place], [address] GFR/1.73 sq M.predicted among non-blacks MDRD (S/P/Bld) [Vol rate/Area] 99 mL/min/{1.73_m2} Normal >60 [facility] Comment on above: Result Comment: mL/m in/1.73m2 CKD-EPI Creatinine Equation (2020) Performed By: #### L 100.0100, L500.4050 ####[facility] [address] [place], [address] Globulin (S) [Mass/Vol] 2.6 g/dL Normal 2.2-4.2 [facility] Comment on above: Performed By: #### L 100.0100, L500.4050 ####[facility] [address] [place], [address] Glucose [Mass/Vol] 187 mg/dL High 70-99 [facility] Comment on above: Performed By: #### L 100.0100, L500.4050 ####[facility] [address] [place], [address] Potassium [Moles/Vol] 3.1 mmol/L Low 3.3-5.1 [facility] Comment on above: Performed By: #### L 100.0100, L500.4050 ####[facility] [address] [place], [address] Sodium [Moles/Vol] 132 mmol/L Low 133-145 [facility] Comment on above: Performed By: #### L 100.0100, L500.4050 ####[facility] [address] [place], [address] T PROT 4.9 g/dL Low 5.9-8.4 [facility] Comment on above: Performed By: #### L 100.0100, L500.4050 ####[facility] [address] [place], [address] Urea nitrogen [Mass/Vol] 7 mg/dL Normal 4-19 [facility] Comment on above: Performed By: #### L 100.0100, L500.4050 ####[facility] [address] [place], [address] Ferritinon 01-13-2025 Ferritin [Mass/Vol] 76 ng/mL Normal 37-417 [facility] Comment on above: Performed By: #### L 503.6550, L503.6030 ####[facility] [address] [place], [place], [address] Iron measurement (mass/mass) Ordered By: Cielo Tovar on 01-13-2025 Iron (Unsp spec) [Mass/Mass] 110 ug/dL 65-175 [facility] Iron+Iron Binding Capacityon 01-13-2025 TIBC 211 ug/dL Low 250-450 [facility] Comment on above: Performed By: #### L 503.6550, L503.6030 ####[facility] [address] [place], [place], [id number] Magnetic resonance imaging r eportOrdered By: Jerry Osorio on 01-13-2025 Study report [facility] No Panel InformationOrdered By: Cielo Tovar on 01-13-2025 101 ug/dL Low 228-428 [facility] Serum or plasma ferritin wei surement (mass/volume)Ordered By: Cielo Tovar on 01-13-2025 Ferritin [Mass/Vol] 76 ng/mL 37-417 [facility] Serum or plasma iron saturat ion measurement (mass fraction)Ordered By: Cielo Tovar on 01-13-2025 Iron saturation [Mass fraction] 52.1 % 9-55 [facility] Spine Lumbar (Routine)on Spine Lumbar (Routine) Normal [facility] Spine Thoracic (Routine)on 0 01-13-2025 Spine Thoracic (Routine) Normal [facility] Type AND Screenon 01-13-2025 ABO and Rh group Nom (Bld) Blood group O Rh(D) positive Normal [facility] Comment on above: Order Comment: CMV N EG? NNumber of units to transfuse: 1Reason for Ordering Blood: AcuteAre the blood/blood products to be transfused? YIs the patient having/had surgery? NNWhen ReadyNYA Performed By: #### B RC, BTS ####[facility] [address] [place], [place], [id number] Vancomycin, Trough Levelon 0 01-13-2025 VANCO, TROUGH 19.8 ug/mL High 5.0-15.0 [facility] Comment on above: Order Comment: Comme nts: Trough to be drawn 30 mins prior to scheduled [id number] Result Comment: Eleazar mmended goal trough ranges [...] therapy recommended for serious lifethreatening infections include:- Oxahupdjgi-Hmemnalbhcml-Khkpkioyy (Ventilator/Healtcare Associated)-SepsisPLEASE CONTACT PHARMACY SERVICES (#0800) FOR INTERPRETATIONOF RESULTS. Performed By: #### L 501.8820 ####[facility] [address] [place], [place], [id number] Bedside Glucoseon 01-12-2025 FINGERSTICK GLU 241 mg/dL High 74-106 [facility] Comment on above: Result Comment: BRISA GEMENT OF PATIENT CARE PER NURSING PROTOCOL Performed By: #### L 501.080 ####[facility] [address] [place], [place], [phone]) FINGERSTICK GLU 316 mg/dL High 74-106 [facility] Comment on above: Result Comment: BRISA GEMENT OF PATIENT CARE PER NURSING PROTOCOL Performed By: #### L 501.080 ####[facility] [address] [place], [address] FINGERSTICK GLU 224 mg/dL High 74-106 [facility] Comment on above: Result Comment: BRISA GEMENT OF PATIENT CARE PER NURSING PROTOCOL Performed By: #### L 501.080 ####[facility] [facility] [address] [place], [address] FINGERSTICK GLU 214 mg/dL High 74-106 [facility] Comment on above: Result Comment: BRISA GEMENT OF PATIENT CARE PER NURSING PROTOCOL Performed By: #### L 501.080 ####[facility] [address] [place], [address] CBC W/Diff, Automatedon -08 04-2024 Absolute Lymph 0.99 X10 3/uL Normal 0.83-4.51 [facility] Comment on above: Performed By: #### L 100.0100, L500.4050 ####[facility] [address] [place], [address] Absolute Neut 5.9 X10 3/uL Normal 2.0-7.7 [facility] Comment on above: Performed By: #### L 100.0100, L500.4050 ####[facility] [address] [place], [address] Basophils/100 WBC (Bld) 0.5 % Normal 0-1 [facility] Comment on above: Performed By: #### L 100.0100, L500.4050 ####[facility] [address] [place], [address] Eosinophils/100 WBC (Bld) 6.5 % High 0-5 [facility] Comment on above: Performed By: #### L 100.0100, L500.4050 ####[facility] [address] [place], [address] Erythrocyte distribution width (RBC) [Ratio] 18.4 % High 11.6-14.6 [facility] Comment on above: Performed By: #### L 100.0100, L500.4050 ####[facility] [address] [place], [address] Hematocrit (Bld) [Volume fraction] 21.8 % Low 40-54 [facility] Comment on above: Performed By: #### L 100.0100, L500.4050 ####[facility] [address] [place], [address] Hemoglobin (Bld) [Mass/Vol] 7.4 g/dL Low 13.0-16.5 [facility] Comment on above: Performed By: #### L 100.0100, L500.4050 ####[facility] [address] [place], [address] IG% 1.100 High 0.0-0.9 [facility] Comment on above: Result Comment: IG% - Immature Granulocytes (promyelocytes, myelocytes andmetamyelocytes) > 1% indicates that a LEFT SHIFT is Present. Performed By: #### L 100.0100, L500.4050 ####[facility] [address] [place], [address] Lymphocytes/100 WBC (Bld) 11.6 % Low 19-41 [facility] Comment on above: Performed By: #### L 100.0100, L500.4050 ####[facility] [address] [place], [address] MCH (RBC) [Entitic mass] 29.5 pg Normal 27.0-32.0 [facility] Comment on above: Performed By: #### L 100.0100, L500.4050 ####[facility] [address] [place], [address] MCHC (RBC) [Mass/Vol] 33.9 g/dL Normal 32-36 [facility] Comment on above: Performed By: #### L 100.0100, L500.4050 ####[facility] [address] [place], [address] MCV (RBC) [Entitic vol] 86.9 fL Normal 80-94 [facility] Comment on above: Performed By: #### L 100.0100, L500.4050 ####[facility] [address] [place], [address] Monocytes/100 WBC (Bld) 12.1 % High 0-10 [facility] Comment on above: Performed By: #### L 100.0100, L500.4050 ####[facility] [address] [place], [address] Neutrophils/100 WBC (Bld) 68.2 % Normal 47-70 [facility] Comment on above: Performed By: #### L 100.0100, L500.4050 ####[facility] [address] [place], [address] Nucleated RBC (Bld) [#/Vol] 0 10*3/uL Normal 0-5 [facility] Comment on above: Performed By: #### L 100.0100, L500.4050 ####[facility] [address] [place], [address] Platelet mean volume (Bld) [Entitic vol] 11.7 fL Normal 6.2-12.0 [facility] Comment on above: Performed By: #### L 100.0100, L500.4050 ####[facility] [address] [place], [address] Platelets (Bld) [#/Vol] 127 10*3/uL Low 150-450 [facility] Comment on above: Performed By: #### L 100.0100, L500.4050 ####[facility] [address] [place], [address] RBC (Bld) [#/Vol] 2.51 10*6/uL Low 4.6-6.2 [facility] Comment on above: Performed By: #### L 100.0100, L500.4050 ####[facility] [address] [place], [address] RDW SD 57.6 fl High 35.1-43.9 [facility] Comment on above: Performed By: #### L 100.0100, L500.4050 ####[facility] [address] [place], [address] WBC (Bld) [#/Vol] 8.6 10*3/uL Normal 4.4-11.0 [facility] Comment on above: Performed By: #### L 100.0100, L500.4050 ####[facility] [address] [place], [address] [facility] 01-12-2025 Albumin [Mass/Vol] 2.4 g/dL Low 3.5-5.0 [facility] Comment on above: Performed By: #### L 100.0100, L500.4050 ####[facility] [address] [place], [address] Albumin/Globulin [Mass ratio] 0.9 {ratio} Normal 0.9-2.4 [facility] Comment on above: Performed By: #### L 100.0100, L500.4050 ####[facility] [address] [place], [address] ALK PHOS 332 U/L High 40-129 [facility] Comment on above: Performed By: #### L 100.0100, L500.4050 ####[facility] [address] [place], [address] ALT [Catalytic activity/Vol] 82 U/L High <=46 [facility] Comment on above: Performed By: #### L 100.0100, L500.4050 ####[facility] [address] [place], [address] AST [Catalytic activity/Vol] 148 U/L High <=37 [facility] Comment on above: Performed By: #### L 100.0100, L500.4050 ####[facility] [address] [place], [address] Bilirubin [Mass/Vol] 1.95 mg/dL High 0.00-1.30 [facility] Comment on above: Performed By: #### L 100.0100, L500.4050 ####[facility] [address] [place], [address] BUN/CRE 10.5 RATIO Normal 10-20 [facility] Comment on above: Performed By: #### L 100.0100, L500.4050 ####[facility] [address] [place], [address] Calcium [Mass/Vol] 7.6 mg/dL Normal 7.6-11.0 [facility] Comment on above: Performed By: #### L 100.0100, L500.4050 ####[facility] [address] [place], [address] Chloride [Moles/Vol] 97 mmol/L Low 98-108 [facility] Comment on above: Performed By: #### L 100.0100, L500.4050 ####[facility] [address] [place], [address] CO2 [Moles/Vol] 24.4 mmol/L Normal 21.0-32.0 [facility] Comment on above: Performed By: #### L 100.0100, L500.4050 ####[facility] [address] [place], [address] Creatinine [Mass/Vol] 0.93 mg/dL Normal 0.70-1.20 [facility] Comment on above: Performed By: #### L 100.0100, L500.4050 ####[facility] [address] [place], [address] ECRCL 99.17 ml/min Normal 50-250 [facility] Comment on above: Performed By: #### L 100.0100, L500.4050 ####[facility] [address] [place], [address] GAP 9 Normal 5-15 [facility] Comment on above: Performed By: #### L 100.0100, L500.4050 ####[facility] [address] [place], [address] GFR/1.73 sq M.predicted among non-blacks MDRD (S/P/Bld) [Vol rate/Area] 95 mL/min/{1.73_m2} Normal >60 [facility] Comment on above: Result Comment: mL/m in/1.73m2 CKD-EPI Creatinine Equation (2020) Performed By: #### L 100.0100, L500.4050 ####[facility] [address] [place], [address] Globulin (S) [Mass/Vol] 2.7 g/dL Normal 2.2-4.2 [facility] Comment on above: Performed By: #### L 100.0100, L500.4050 ####[facility] [address] [place], [address] Glucose [Mass/Vol] 241 mg/dL High 70-99 [facility] Comment on above: Performed By: #### L 100.0100, L500.4050 ####[facility] [address] [place], [address] Potassium [Moles/Vol] 3.1 mmol/L Low 3.3-5.1 [facility] Comment on above: Performed By: #### L 100.0100, L500.4050 ####[facility] [address] [place], [address] Sodium [Moles/Vol] 130 mmol/L Low 133-145 [facility] Comment on above: Performed By: #### L 100.0100, L500.4050 ####[facility] [address] [place], [address] T PROT 5.0 g/dL Low 5.9-8.4 [facility] Comment on above: Performed By: #### L 100.0100, L500.4050 ####[facility] [address] [place], [address] Urea nitrogen [Mass/Vol] 10 mg/dL Normal 4-19 [facility] Comment on above: Performed By: #### L 100.0100, L500.4050 ####[facility] [address] [place], [address] Urine Cultureon 01-12-2025 [facility] Urine Culture Urine Culture Yeast, not Mary albicans Irwin Count 25,000-50,000 Normal [facility] Comment on above: Performed By: #### M 100.2200 ####[facility] [address] [place], [address] Bedside Glucoseon 01-11-2025 FINGERSTICK GLU 258 mg/dL High 74-106 [facility] Comment on above: Result Comment: BRISA GEMENT OF PATIENT CARE PER NURSING PROTOCOL Performed By: #### L 501.080 ####[facility] [address] [place], [address] FINGERSTICK GLU 298 mg/dL High 74-106 [facility] Comment on above: Result Comment: BRISA GEMENT OF PATIENT CARE PER NURSING PROTOCOL Performed By: #### L 501.080 ####[facility] [address] [place], [address] FINGERSTICK GLU 268 mg/dL High 74-106 [facility] Comment on above: Result Comment: BRISA GEMENT OF PATIENT CARE PER NURSING PROTOCOL Performed By: #### L 501.080 ####[facility] [address] [place], [address] FINGERSTICK GLU 251 mg/dL High 74-106 [facility] Comment on above: Result Comment: BRISA GEMENT OF PATIENT CARE PER NURSING PROTOCOL Performed By: #### L 501.080 ####[facility] [address] [place], [address] CBC W/Diff, Automatedon 06- 0-5 Absolute Lymph 1.01 X10 3/uL Normal 0.83-4.51 [facility] Comment on above: Performed By: #### L 100.0100 ####[facility] [address] [place], [address] Absolute Neut 5.6 X10 3/uL Normal 2.0-7.7 [facility] Comment on above: Performed By: #### L 100.0100 ####[facility] [address] [place], [address] Basophils/100 WBC (Bld) 0.5 % Normal 0-1 [facility] Comment on above: Performed By: #### L 100.0100 ####[facility] [address] [place], [address] Eosinophils/100 WBC (Bld) 4.6 % Normal 0-5 [facility] Comment on above: Performed By: #### L 100.0100 ####[facility] [address] [place], [address] Erythrocyte distribution width (RBC) [Ratio] 18.6 % High 11.6-14.6 [facility] Comment on above: Performed By: #### L 100.0100 ####[facility] [address] [place], [address] Hematocrit (Bld) [Volume fraction] 21.8 % Low 40-54 [facility] Comment on above: Performed By: #### L 100.0100 ####[facility] [address] [place], [address] Hemoglobin (Bld) [Mass/Vol] 7.4 g/dL Low 13.0-16.5 [facility] Comment on above: Performed By: #### L 100.0100 ####[facility] [address] [place], [address] IG% 0.900 Normal 0.0-0.9 [facility] Comment on above: Result Comment: IG% - Immature Granulocytes (promyelocytes, myelocytes andmetamyelocytes) > 1% indicates that a LEFT SHIFT is Present. Performed By: #### L 100.0100 ####[facility] [address] [place], [address] Lymphocytes/100 WBC (Bld) 12.6 % Low 19-41 [facility] Comment on above: Performed By: #### L 100.0100 ####[facility] [address] [place], [address] MCH (RBC) [Entitic mass] 29.7 pg Normal 27.0-32.0 [facility] Comment on above: Performed By: #### L 100.0100 ####[facility] [address] [place], [address] MCHC (RBC) [Mass/Vol] 33.9 g/dL Normal 32-36 [facility] Comment on above: Performed By: #### L 100.0100 ####[facility] [address] [place], [address] MCV (RBC) [Entitic vol] 87.6 fL Normal 80-94 [facility] Comment on above: Performed By: #### L 100.0100 ####[facility] [address] [place], [address] Monocytes/100 WBC (Bld) 11.8 % High 0-10 [facility] Comment on above: Performed By: #### L 100.0100 ####[facility] [address] [place], [address] Neutrophils/100 WBC (Bld) 69.6 % Normal 47-70 [facility] Comment on above: Performed By: #### L 100.0100 ####[facility] [address] [place], [address] Nucleated RBC (Bld) [#/Vol] 0 10*3/uL Normal 0-5 [facility] Comment on above: Performed By: #### L 100.0100 ####[facility] [address] [place], [address] Platelet mean volume (Bld) [Entitic vol] 12.1 fL High 6.2-12.0 [facility] Comment on above: Performed By: #### L 100.0100 ####[facility] [address] [place], [address] Platelets (Bld) [#/Vol] 130 10*3/uL Low 150-450 [facility] Comment on above: Performed By: #### L 100.0100 ####[facility] [address] [place], [address] RBC (Bld) [#/Vol] 2.49 10*6/uL Low 4.6-6.2 [facility] Comment on above: Performed By: #### L 100.0100 ####[facility] [address] [place], [address] RDW SD 56.7 fl High 35.1-43.9 [facility] Comment on above: Performed By: #### L 100.0100 ####[facility] [address] [place], [address] WBC (Bld) [#/Vol] 8.0 10*3/uL Normal 4.4-11.0 [facility] Comment on above: Performed By: #### L 100.0100 ####[facility] [address] [place], [address] Absolute Neut Normal 2.0-7.7 [facility] Comment on above: Result Comment: This specimen has been REJECTED due to Laboratory criteria:Clotted.DSCOTT has been notified of need of recollection.01/11/25555 Vitaliy Lillie Performed By: #### L 100.0100, L500.4050 ####[facility] [address] [facility] [address] HCT Normal 40-54 [facility] Comment on above: Result Comment: This specimen has been REJECTED due to Laboratory criteria:Clotted.DSCOTT has been notified of need of recollection.01/11/25555 Vitaliy Lillie Performed By: #### L 100.0100, L500.4050 ####[facility] [address] [place], [address] HGB Normal 13.0-16.5 [facility] Comment on above: Result Comment: This specimen has been REJECTED due to Laboratory criteria:Clotted.DSCOTT has been notified of need of recollection.01/11/25555 Vitaliy Lillie Performed By: #### L 100.0100, L500.4050 ####[facility] [address] [place], [address] MCH Normal 27.0-32.0 [facility] Comment on above: Result Comment: This specimen has been REJECTED due to Laboratory criteria:Clotted.DSCOTT has been notified of need of recollection.01/11/25555 Vitaliy Minden Performed By: #### L 100.0100, L500.4050 ####[facility] [address] [place], [address] MCHC Normal 32-36 [facility] Comment on above: Result Comment: This specimen has been REJECTED due to Laboratory criteria:Clotted.DSCOTT has been notified of need of recollection.01/11/25555 Vitaliy Lillie Performed By: #### L 100.0100, L500.4050 ####[facility] [address] [place], [address] MCV Normal 80-94 [facility] Comment on above: Result Comment: This specimen has been REJECTED due to Laboratory criteria:Clotted.DSCOTT has been notified of need of recollection.01/11/25555 Vitaliy Lillie Performed By: #### L 100.0100, L500.4050 ####[facility] [address] [place], [address] NEUT% Normal 47-70 [facility] Comment on above: Result Comment: This specimen has been REJECTED due to Laboratory criteria:Clotted.DSCOTT has been notified of need of recollection.01/11/25555 Vitaliy Lillie Performed By: #### L 100.0100, L500.4050 ####[facility] [address] [place], [address] PLT Normal 150-450 [facility] Comment on above: Result Comment: This specimen has been REJECTED due to Laboratory criteria:Clotted.DSCOTT has been notified of need of recollection.01/11/25555 Vitaliy Minden Performed By: #### L 100.0100, L500.4050 ####[facility] [address] [place], [address] RBC Normal 4.6-6.2 [facility] Comment on above: Result Comment: This specimen has been REJECTED due to Laboratory criteria:Clotted.DSCOTT has been notified of need of recollection.01/11/25555 Vitaliy Lillie Performed By: #### L 100.0100, L500.4050 ####[facility] [address] [place], [address] RDW CV Normal 11.6-14.6 [facility] Comment on above: Result Comment: This specimen has been REJECTED due to Laboratory criteria:Clotted.DSCOTT has been notified of need of recollection.01/11/25555 Vitaliy Minden Performed By: #### L 100.0100, L500.4050 ####[facility] [address] [place], [address] RDW SD Normal 35.1-43.9 [facility] Comment on above: Result Comment: This specimen has been REJECTED due to Laboratory criteria:Clotted.DSCOTT has been notified of need of recollection.01/11/25 Vitaliy Lillie Performed By: #### L 100.0100, L500.4050 ####[facility] [address] [place], [address] WBC Normal 4.4-11.0 [facility] Comment on above: Result Comment: This specimen has been REJECTED due to Laboratory criteria:Clotted.DSCOTT has been notified of need of recollection.01/11/25 Vitaliy Minden Performed By: #### L 100.0100, L500.4050 ####[facility] [address] [place], [address] Comprehensive Metabolic Prof ohon 01-11-2025 Albumin [Mass/Vol] 2.2 g/dL Low 3.5-5.0 [facility] Comment on above: Performed By: #### L 100.0100, L500.4050 ####[facility] [address] [place], [address] Albumin/Globulin [Mass ratio] 0.8 {ratio} Low 0.9-2.4 [facility] Comment on above: Performed By: #### L 100.0100, L500.4050 ####[facility] [address] [place], [address] ALK PHOS 314 U/L High 40-129 [facility] Comment on above: Performed By: #### L 100.0100, L500.4050 ####[facility] [address] [place], [address] ALT [Catalytic activity/Vol] 66 U/L High <=46 [facility] Comment on above: Performed By: #### L 100.0100, L500.4050 ####[facility] [address] [place], [address] AST [Catalytic activity/Vol] 137 U/L High <=37 [facility] Comment on above: Result Comment: Hemo lysis present, Results??could be affected.?? Performed By: #### L 100.0100, L500.4050 ####[facility] [address] [place], [address] Bilirubin [Mass/Vol] 2.05 mg/dL High 0.00-1.30 [facility] Comment on above: Performed By: #### L 100.0100, L500.4050 ####[facility] [address] [place], [address] BUN/CRE 13.4 RATIO Normal 10-20 [facility] Comment on above: Performed By: #### L 100.0100, L500.4050 ####[facility] [address] [place], [address] Calcium [Mass/Vol] 7.6 mg/dL Normal 7.6-11.0 [facility] Comment on above: Performed By: #### L 100.0100, L500.4050 ####[facility] [address] [place], [address] Chloride [Moles/Vol] 99 mmol/L Normal 98-108 [facility] Comment on above: Performed By: #### L 100.0100, L500.4050 ####[facility] [address] [place], [address] CO2 [Moles/Vol] 17.3 mmol/L Low 21.0-32.0 [facility] Comment on above: Performed By: #### L 100.0100, L500.4050 ####[facility] [address] [place], [address] Creatinine [Mass/Vol] 1.18 mg/dL Normal 0.70-1.20 [facility] Comment on above: Performed By: #### L 100.0100, L500.4050 ####[facility] [address] [place], [address] ECRCL 78.27 ml/min Normal 50-250 [facility] Comment on above: Performed By: #### L 100.0100, L500.4050 ####[facility] [address] [place], [address] GAP 12 Normal 5-15 [facility] Comment on above: Performed By: #### L 100.0100, L500.4050 ####[facility] [address] [place], [address] GFR/1.73 sq M.predicted among non-blacks MDRD (S/P/Bld) [Vol rate/Area] 72 mL/min/{1.73_m2} Normal >60 [facility] Comment on above: Result Comment: mL/m in/1.73m2 CKD-EPI Creatinine Equation (2020) Performed By: #### L 100.0100, L500.4050 ####[facility] [address] [place], [address] Globulin (S) [Mass/Vol] 2.8 g/dL Normal 2.2-4.2 [facility] Comment on above: Performed By: #### L 100.0100, L500.4050 ####[facility] [address] [place], [address] Glucose [Mass/Vol] 275 mg/dL High 70-99 [facility] Comment on above: Performed By: #### L 100.0100, L500.4050 ####[facility] [address] [place], [address] Potassium [Moles/Vol] 3.5 mmol/L Normal 3.3-5.1 [facility] Comment on above: Result Comment: Hemo lysis present, Results??could be affected.?? Performed By: #### L 100.0100, L500.4050 ####[facility] [address] [place], [address] Sodium [Moles/Vol] 129 mmol/L Low 133-145 [facility] Comment on above: Performed By: #### L 100.0100, L500.4050 ####[facility] [address] [place], [address] T PROT 5.0 g/dL Low 5.9-8.4 [facility] Comment on above: Performed By: #### L 100.0100, L500.4050 ####[facility] [address] [place], [address] Urea nitrogen [Mass/Vol] 16 mg/dL Normal 4-19 [facility] Comment on above: Performed By: #### L 100.0100, L500.4050 ####[facility] [address] [place], [address] Consultation - Surgicalon Consultation - Surgical Normal [facility] Vancomycin, Random Levelon 0 01-11-2025 VANCO, RANDOM 14.8 ug/mL Normal 0.0-15.0 [facility] Comment on above: Result Comment: VANC OMYCIN STANDARD DRUG THERAPY: CRITICAL VALUE IS > 15.0 mg/LVANCOMYCIN HIGH INTENSITY THERAPY: CRITICAL VALUE IS > 20.0 mg/LPLEASE CONTACT PHARMACY SERVICES (#9332) FOR INTERPRETATIONOF RESULTS. THIS RESULT DOES NOT REPRESENT A PEAK OR TROUGHLEVEL FOR THIS DRUG. Performed By: #### L 501.8850 ####[facility] [address] [place], [place], [address] Vancomycin, Trough Levelon 0 01-11-2025 VANCO, TROUGH 21.8 ug/mL High 5.0-15.0 [facility] Comment on above: Order Comment: Comme nts: DRAW 30 MIN PRIOR TO [id number] Result Comment: Eleazar mmended goal trough ranges [...] therapy recommended for serious lifethreatening infections include:- Jnrrtumexn-Kqhojfazfing-Recqdvkrq (Ventilator/Healtcare Associated)-SepsisPLEASE CONTACT PHARMACY SERVICES (#8369) FOR INTERPRETATIONOF RESULTS. Performed By: #### L 501.8820 ####[facility] [address] [place], [place], [address] Bedside Glucoseon 01-10-2025 FINGERSTICK GLU 193 mg/dL High 74-106 [facility] Comment on above: Result Comment: BRISA GEMENT OF PATIENT CARE PER NURSING PROTOCOL Performed By: #### L 501.080 ####[facility] [address] [place], [place], [address] FINGERSTICK GLU 190 mg/dL High 74-106 [facility] Comment on above: Result Comment: BRISA GEMENT OF PATIENT CARE PER NURSING PROTOCOL Performed By: #### L 501.080 ####[facility] [address] [place], [address] FINGERSTICK GLU 195 mg/dL High 74-106 [facility] Comment on above: Result Comment: BRISA MOROCHO OF PATIENT CARE PER NURSING PROTOCOL Performed By: #### L 501.080 ####[facility] [address] [place], [address] CBC W/Diff, Automatedon 06-0 -2024 Absolute Lymph 0.85 X10 3/uL Normal 0.83-4.51 [facility] Comment on above: Order Comment: REDRA W. PREVIOUS SPECIMEN REJECTED DUE TOCONTAMINATION. 01/10/25410 Eliazar R Mancia. Performed By: #### L 100.0100 ####[facility] [address] [place], [address] Absolute Neut 7.3 X10 3/uL Normal 2.0-7.7 [facility] Comment on above: Order Comment: REDRA W. PREVIOUS SPECIMEN REJECTED DUE TOCONTAMINATION. 01/10/25410 Eliazar R Mancia. Performed By: #### L 100.0100 ####[facility] [address] [place], [address] Basophils/100 WBC (Bld) 0.5 % Normal 0-1 [facility] Comment on above: Order Comment: REDRA W. PREVIOUS SPECIMEN REJECTED DUE TOCONTAMINATION. 01/10/25410 Eliazar R Mancia. Performed By: #### L 100.0100 ####[facility] [address] [place], [address] Eosinophils/100 WBC (Bld) 5.9 % High 0-5 [facility] Comment on above: Order Comment: REDRA W. PREVIOUS SPECIMEN REJECTED DUE TOCONTAMINATION. 01/10/25410 Eliazar R Mancia. Performed By: #### L 100.0100 ####[facility] [address] [place], [address] Erythrocyte distribution width (RBC) [Ratio] 18.7 % High 11.6-14.6 [facility] Comment on above: Order Comment: REDRA W. PREVIOUS SPECIMEN REJECTED DUE TOCONTAMINATION. 01/10/25410 Eliazar R Mancia. Performed By: #### L 100.0100 ####[facility] [address] [place], [address] Hematocrit (Bld) [Volume fraction] 23.1 % Low 40-54 [facility] Comment on above: Order Comment: REDRA W. PREVIOUS SPECIMEN REJECTED DUE TOCONTAMINATION. 01/10/25410 Eliazar R Mancia. Performed By: #### L 100.0100 ####[facility] [address] [place], [address] Hemoglobin (Bld) [Mass/Vol] 7.4 g/dL Low 13.0-16.5 [facility] Comment on above: Order Comment: REDRA W. PREVIOUS SPECIMEN REJECTED DUE TOCONTAMINATION. 01/10/25410 Eliazar R Mancia. Performed By: #### L 100.0100 ####[facility] [address] [place], [address] IG% 0.500 Normal 0.0-0.9 [facility] Comment on above: Order Comment: REDRA W. PREVIOUS SPECIMEN REJECTED DUE TOCONTAMINATION. 01/10/25410 Eliazar R Mancia. Result Comment: IG% - Immature Granulocytes (promyelocytes, myelocytes andmetamyelocytes) > 1% indicates that a LEFT SHIFT is Present. Performed By: #### L 100.0100 ####[facility] [address] [place], [address] Lymphocytes/100 WBC (Bld) 8.8 % Low 19-41 [facility] Comment on above: Order Comment: REDRA W. PREVIOUS SPECIMEN REJECTED DUE TOCONTAMINATION. 01/10/25410 Eliazar R Mancia. Performed By: #### L 100.0100 ####[facility] [address] [place], [address] MCH (RBC) [Entitic mass] 29.2 pg Normal 27.0-32.0 [facility] Comment on above: Order Comment: REDRA W. PREVIOUS SPECIMEN REJECTED DUE TOCONTAMINATION. 01/10/25410 Eliazar R Mancia. Performed By: #### L 100.0100 ####[facility] [address] [place], [address] MCHC (RBC) [Mass/Vol] 32.0 g/dL Normal 32-36 [facility] Comment on above: Order Comment: REDRA W. PREVIOUS SPECIMEN REJECTED DUE TOCONTAMINATION. 01/10/25410 Eliazar R Mancia. Performed By: #### L 100.0100 ####[facility] [address] [place], [address] MCV (RBC) [Entitic vol] 91.3 fL Normal 80-94 [facility] Comment on above: Order Comment: REDRA W. PREVIOUS SPECIMEN REJECTED DUE TOCONTAMINATION. 01/10/25410 Eliazar R Mancia. Performed By: #### L 100.0100 ####[facility] [address] [place], [address] Monocytes/100 WBC (Bld) 8.2 % Normal 0-10 [facility] Comment on above: Order Comment: REDRA W. PREVIOUS SPECIMEN REJECTED DUE TOCONTAMINATION. 01/10/25410 Eliazar R Mancia. Performed By: #### L 100.0100 ####[facility] [address] [place], [address] Neutrophils/100 WBC (Bld) 76.1 % High 47-70 [facility] Comment on above: Order Comment: REDRA W. PREVIOUS SPECIMEN REJECTED DUE TOCONTAMINATION. 01/10/25410 Eliazar R Mancia. Performed By: #### L 100.0100 ####[facility] [address] [place], [address] Nucleated RBC (Bld) [#/Vol] 0 10*3/uL Normal 0-5 [facility] Comment on above: Order Comment: REDRA W. PREVIOUS SPECIMEN REJECTED DUE TOCONTAMINATION. 01/10/25410 Eliazar R Mancia. Performed By: #### L 100.0100 ####[facility] [address] [place], [address] Platelet mean volume (Bld) [Entitic vol] 12.3 fL High 6.2-12.0 [facility] Comment on above: Order Comment: REDRA W. PREVIOUS SPECIMEN REJECTED DUE TOCONTAMINATION. 01/10/25410 Eliazar R Mancia. Performed By: #### L 100.0100 ####[facility] [address] [place], [address] Platelets (Bld) [#/Vol] 110 10*3/uL Low 150-450 [facility] Comment on above: Order Comment: REDRA W. PREVIOUS SPECIMEN REJECTED DUE TOCONTAMINATION. 01/10/25410 Eliazar R Mancia. Performed By: #### L 100.0100 ####[facility] [address] [place], [address] RBC (Bld) [#/Vol] 2.53 10*6/uL Low 4.6-6.2 [facility] Comment on above: Order Comment: REDRA W. PREVIOUS SPECIMEN REJECTED DUE TOCONTAMINATION. 01/10/25410 Eliazar R Mancia. Performed By: #### L 100.0100 ####[facility] [address] [place], [address] RDW SD 60.1 fl High 35.1-43.9 [facility] Comment on above: Order Comment: REDRA W. PREVIOUS SPECIMEN REJECTED DUE TOCONTAMINATION. 01/10/25410 Eliazar R Mancia. Performed By: #### L 100.0100 ####[facility] [address] [place], [address] WBC (Bld) [#/Vol] 9.6 10*3/uL Normal 4.4-11.0 [facility] Comment on above: Order Comment: ROSIO Hampton. PREVIOUS SPECIMEN REJECTED DUE TOCONTAMINATION. 01/10/25410 Eliazar R Mancia. Performed By: #### L 100.0100 ####[facility] [address] [place], [address] DIFF INDICATED? SCAN CRITERIA MET Normal [facility] Comment on above: Result Comment: This specimen has been REJECTED due to Laboratory criteria:Contaminated/Leaked.[facility] has been notified of need of recollection.01/10/25408 Eliazar R Mancia Performed By: #### L 100.0100, L500.4050 ####[facility] [address] [place], [address] Hemoglobin (Bld) [Mass/Vol] 5.5 g/dL Invalid Interpretation Code 13.0-16.5 [facility] Comment on above: Result Comment: This specimen has been REJECTED due to Laboratory criteria:Contaminated/Leaked.[facility] has been notified of need of recollection.01/10/25408 Eliazar R BurnsCRITICAL VALUE CALLED TO PORTIA TAVAREZ (ICU)01/10/25 0336 Henry Calloway.RESULTS READ BACK BY SAME. Performed By: #### L 100.0100, L500.4050 ####[facility] [address] [place], [address] Absolute Lymph 4.28 X10 3/uL Normal 0.83-4.51 [facility] Comment on above: Result Comment: This specimen has been REJECTED due to Laboratory criteria:Contaminated/Leaked.[facility] has been notified of need of recollection.01/10/25408 Eliazar R Mancia Performed By: #### L 100.0100, L500.4050 ####[facility] [address] [place], [address] Absolute Neut 1.7 X10 3/uL Low 2.0-7.7 [facility] Comment on above: Result Comment: This specimen has been REJECTED due to Laboratory criteria:Contaminated/Leaked.[facility] has been notified of need of recollection.01/10/25408 Eliazar R Mancia Performed By: #### L 100.0100, L500.4050 ####[facility] [address] [place], [address] Basophils/100 WBC (Bld) 0.2 % Normal 0-1 [facility] Comment on above: Result Comment: This specimen has been REJECTED due to Laboratory criteria:Contaminated/Leaked.[facility] has been notified of need of recollection.01/10/25408 Eliazar R Mancia Performed By: #### L 100.0100, L500.4050 ####[facility] [address] [place], [address] Eosinophils/100 WBC (Bld) 2.4 % Normal 0-5 [facility] Comment on above: Result Comment: This specimen has been REJECTED due to Laboratory criteria:Contaminated/Leaked.[facility] has been notified of need of recollection.01/10/25408 Eliazar R Mancia Performed By: #### L 100.0100, L500.4050 ####[facility] [address] [place], [address] Erythrocyte distribution width (RBC) [Ratio] 19.2 % High 11.6-14.6 [facility] Comment on above: Result Comment: This specimen has been REJECTED due to Laboratory criteria:Contaminated/Leaked.[facility] has been notified of need of recollection.01/10/25408 Eliazar R Mancia Performed By: #### L 100.0100, L500.4050 ####[facility] [address] [place], [address] Hematocrit (Bld) [Volume fraction] 20.7 % Low 40-54 [facility] Comment on above: Result Comment: This specimen has been REJECTED due to Laboratory criteria:Contaminated/Leaked.[facility] has been notified of need of recollection.01/10/25408 Eliazar R Mancia Performed By: #### L 100.0100, L500.4050 ####[facility] [address] [place], [address] IG# 0.020 X10 3/uL High 0.0-0.0 [facility] Comment on above: Result Comment: This specimen has been REJECTED due to Laboratory criteria:Contaminated/Leaked.[facility] has been notified of need of recollection.01/10/25408 Eliazar R Mancia Performed By: #### L 100.0100, L500.4050 ####[facility] [address] [place], [address] IG% 0.300 Normal 0.0-0.9 [facility] Comment on above: Result Comment: This specimen has been REJECTED due to Laboratory criteria:Contaminated/Leaked.[facility] has been notified of need of recollection.01/10/25408 Eliazar R BurnsIG% - Immature Granulocytes (promyelocytes, myelocytes andmetamyelocytes) > 1% indicates that a LEFT SHIFT is Present. Performed By: #### L 100.0100, L500.4050 ####[facility] [address] [place], [address] Lymphocytes/100 WBC (Bld) 67.8 % High 19-41 [facility] Comment on above: Result Comment: This specimen has been REJECTED due to Laboratory criteria:Contaminated/Leaked.[facility] has been notified of need of recollection.01/10/25408 Eliazar R Mancia Performed By: #### L 100.0100, L500.4050 ####[facility] [address] [place], [address] MCH (RBC) [Entitic mass] 29.4 pg Normal 27.0-32.0 [facility] Comment on above: Result Comment: This specimen has been REJECTED due to Laboratory criteria:Contaminated/Leaked.[facility] has been notified of need of recollection.01/10/25408 Eliazar R Mancia Performed By: #### L 100.0100, L500.4050 ####[facility] [address] [place], [address] MCHC (RBC) [Mass/Vol] 26.6 g/dL Low 32-36 [facility] Comment on above: Result Comment: This specimen has been REJECTED due to Laboratory criteria:Contaminated/Leaked.[facility] has been notified of need of recollection.01/10/25408 Eliazar R Mancia Performed By: #### L 100.0100, L500.4050 ####[facility] [address] [place], [address] MCV (RBC) [Entitic vol] 110.7 fL High 80-94 [facility] Comment on above: Result Comment: This specimen has been REJECTED due to Laboratory criteria:Contaminated/Leaked.[facility] has been notified of need of recollection.01/10/25408 Eliazar R Mancia Performed By: #### L 100.0100, L500.4050 ####[facility] [address] [place], [address] Monocytes/100 WBC (Bld) 2.5 % Normal 0-10 [facility] Comment on above: Result Comment: This specimen has been REJECTED due to Laboratory criteria:Contaminated/Leaked.[facility] has been notified of need of recollection.01/10/25408 Eliazar R Mancia Performed By: #### L 100.0100, L500.4050 ####[facility] [address] [place], [address] Neutrophil # 1.69 X10 3/uL Low 2.7-7.7 [facility] Comment on above: Result Comment: This specimen has been REJECTED due to Laboratory criteria:Contaminated/Leaked.[facility] has been notified of need of recollection.01/10/25408 Eliazar R Mancia Performed By: #### L 100.0100, L500.4050 ####[facility] [address] [place], [address] Neutrophils/100 WBC (Bld) 26.8 % Low 47-70 [facility] Comment on above: Result Comment: This specimen has been REJECTED due to Laboratory criteria:Contaminated/Leaked.[facility] has been notified of need of recollection.01/10/25408 Eliazar R Mancia Performed By: #### L 100.0100, L500.4050 ####[facility] [address] [place], [address] Nucleated RBC (Bld) [#/Vol] 0 10*3/uL Normal 0-5 [facility] Comment on above: Result Comment: This specimen has been REJECTED due to Laboratory criteria:Contaminated/Leaked.[facility] has been notified of need of recollection.01/10/25408 Eliazar R Mancia Performed By: #### L 100.0100, L500.4050 ####[facility] [address] [place], [address] Platelet mean volume (Bld) [Entitic vol] 12.2 fL High 6.2-12.0 [facility] Comment on above: Result Comment: This specimen has been REJECTED due to Laboratory criteria:Contaminated/Leaked.[facility] has been notified of need of recollection.01/10/25408 Eliazar R Mancia Performed By: #### L 100.0100, L500.4050 ####[facility] [address] [place], [address] Platelets (Bld) [#/Vol] 97 10*3/uL Low 150-450 [facility] Comment on above: Result Comment: This specimen has been REJECTED due to Laboratory criteria:Contaminated/Leaked.[facility] has been notified of need of recollection.01/10/25408 Eliazar R Mancia Performed By: #### L 100.0100, L500.4050 ####[facility] [address] [place], [address] POSITIVE COUNT YES Abnormal [facility] Comment on above: Result Comment: This specimen has been REJECTED due to Laboratory criteria:Contaminated/Leaked.[facility] has been notified of need of recollection.01/10/25408 Eliazar R Mancia Performed By: #### L 100.0100, L500.4050 ####[facility] [address] [place], [address] POSITIVE MORPH YES Abnormal [facility] Comment on above: Result Comment: This specimen has been REJECTED due to Laboratory criteria:Contaminated/Leaked.[facility] has been notified of need of recollection.01/10/25408 Eliazar R Mancia Performed By: #### L 100.0100, L500.4050 ####[facility] [address] [place], [address] RBC (Bld) [#/Vol] 1.87 10*6/uL Low 4.6-6.2 [facility] Comment on above: Result Comment: This specimen has been REJECTED due to Laboratory criteria:Contaminated/Leaked.[facility] has been notified of need of recollection.01/10/25408 Eliazar R Mancia Performed By: #### L 100.0100, L500.4050 ####[facility] [address] [place], [address] RDW SD 73.4 fl High 35.1-43.9 [facility] Comment on above: Result Comment: This specimen has been REJECTED due to Laboratory criteria:Contaminated/Leaked.[facility] has been notified of need of recollection.01/10/25408 Eliazar R Mancia Performed By: #### L 100.0100, L500.4050 ####[facility] [address] [place], [address] WBC (Bld) [#/Vol] 6.3 10*3/uL Normal 4.4-11.0 [facility] Comment on above: Result Comment: This specimen has been REJECTED due to Laboratory criteria:Contaminated/Leaked.[facility]IKA has been notified of need of recollection.01/10/25408 Eliazar R Mancia Performed By: #### L 100.0100, L500.4050 ####[facility] [address] [place], [address] Comprehensive Metabolic Prof ilon 01-10-2025 Albumin [Mass/Vol] 2.4 g/dL Low 3.5-5.0 [facility] Comment on above: Order Comment: REDRA W. PREVIOUS SPECIMEN REJECTED DUE TOCONTAMINATION. 01/10/25409 Eliazar R Mancia. Performed By: #### L 500.4050, L501.5200, L501.2300 ####[facility] [address] [place], [address] Albumin/Globulin [Mass ratio] 0.9 {ratio} Normal 0.9-2.4 [facility] Comment on above: Order Comment: REDRA W. PREVIOUS SPECIMEN REJECTED DUE TOCONTAMINATION. 01/10/25409 Eliazar R Mancia. Performed By: #### L 500.4050, L501.5200, L501.2300 ####[facility] [address] [place], [address] ALK PHOS 244 U/L High 40-129 [facility] Comment on above: Order Comment: REDRA W. PREVIOUS SPECIMEN REJECTED DUE TOCONTAMINATION. 01/10/25409 Eliazar R Mancia. Performed By: #### L 500.4050, L501.5200, L501.2300 ####[facility] [address] [place], [address] ALT [Catalytic activity/Vol] 54 U/L High <=46 [facility] Comment on above: Order Comment: REDRA W. PREVIOUS SPECIMEN REJECTED DUE TOCONTAMINATION. 01/10/25409 Eliazar R Mancia. Performed By: #### L 500.4050, L501.5200, L501.2300 ####[facility] [address] [place], [address] AST [Catalytic activity/Vol] 101 U/L High <=37 [facility] Comment on above: Order Comment: REDRA W. PREVIOUS SPECIMEN REJECTED DUE TOCONTAMINATION. 01/10/25409 Eliazar R Mancia. Performed By: #### L 500.4050, L501.5200, L501.2300 ####[facility] [address] [place], [address] Bilirubin [Mass/Vol] 1.57 mg/dL High 0.00-1.30 [facility] Comment on above: Order Comment: REDRA W. PREVIOUS SPECIMEN REJECTED DUE TOCONTAMINATION. 01/10/25409 Eliazar R Mancia. Performed By: #### L 500.4050, L501.5200, L501.2300 ####[facility] [address] [place], [address] BUN/CRE 13.7 RATIO Normal 10-20 [facility] Comment on above: Order Comment: REDRA W. PREVIOUS SPECIMEN REJECTED DUE TOCONTAMINATION. 01/10/25409 Eliazar R Mancia. Performed By: #### L 500.4050, L501.5200, L501.2300 ####[facility] [address] [place], [address] Calcium [Mass/Vol] 7.8 mg/dL Normal 7.6-11.0 [facility] Comment on above: Order Comment: REDRA W. PREVIOUS SPECIMEN REJECTED DUE TOCONTAMINATION. 01/10/25409 Eliazar R Mancia. Performed By: #### L 500.4050, L501.5200, L501.2300 ####[facility] [address] [place], [address] Chloride [Moles/Vol] 101 mmol/L Normal 98-108 [facility] Comment on above: Order Comment: REDRA W. PREVIOUS SPECIMEN REJECTED DUE TOCONTAMINATION. 01/10/25409 Eliazar R Mancia. Performed By: #### L 500.4050, L501.5200, L501.2300 ####[facility] [address] [place], [address] CO2 [Moles/Vol] 13.1 mmol/L Low 21.0-32.0 [facility] Comment on above: Order Comment: REDRA W. PREVIOUS SPECIMEN REJECTED DUE TOCONTAMINATION. 01/10/25409 Eliazar R Mancia. Performed By: #### L 500.4050, L501.5200, L501.2300 ####[facility] [address] [place], [address] Creatinine [Mass/Vol] 1.95 mg/dL High 0.70-1.20 [facility] Comment on above: Order Comment: REDRA W. PREVIOUS SPECIMEN REJECTED DUE TOCONTAMINATION. 01/10/25409 Eliazar R Mancia. Performed By: #### L 500.4050, L501.5200, L501.2300 ####[facility] [address] [place], [address] ECRCL 45.71 ml/min Low 50-250 [facility] Comment on above: Order Comment: REDRA W. PREVIOUS SPECIMEN REJECTED DUE TOCONTAMINATION. 01/10/25409 Eliazar R Mancia. Performed By: #### L 500.4050, L501.5200, L501.2300 ####[facility] [address] [place], [address] GAP 15 Normal 5-15 [facility] Comment on above: Order Comment: REDRA W. PREVIOUS SPECIMEN REJECTED DUE TOCONTAMINATION. 01/10/25409 Eliazar R Mancia. Performed By: #### L 500.4050, L501.5200, L501.2300 ####[facility] [address] [place], [address] GFR/1.73 sq M.predicted among non-blacks MDRD (S/P/Bld) [Vol rate/Area] 39 mL/min/{1.73_m2} Low >60 [facility] Comment on above: Order Comment: REDRA W. PREVIOUS SPECIMEN REJECTED DUE TOCONTAMINATION. 01/10/25409 Eliazar R Mancia. Result Comment: mL/m in/1.73m2 CKD-EPI Creatinine Equation (2020) Performed By: #### L 500.4050, L501.5200, L501.2300 ####[facility] [address] [place], [address] Globulin (S) [Mass/Vol] 2.6 g/dL Normal 2.2-4.2 [facility] Comment on above: Order Comment: REDRA W. PREVIOUS SPECIMEN REJECTED DUE TOCONTAMINATION. 01/10/25409 Eliazar R Mancia. Performed By: #### L 500.4050, L501.5200, L501.2300 ####[facility] [address] [place], [address] Glucose [Mass/Vol] 247 mg/dL High 70-99 [facility] Comment on above: Order Comment: REDRA W. PREVIOUS SPECIMEN REJECTED DUE TOCONTAMINATION. 01/10/25409 Eliazar R Mancia. Performed By: #### L 500.4050, L501.5200, L501.2300 ####[facility] [address] [place], [address] Potassium [Moles/Vol] 3.4 mmol/L Normal 3.3-5.1 [facility] Comment on above: Order Comment: REDRA W. PREVIOUS SPECIMEN REJECTED DUE TOCONTAMINATION. 01/10/25409 Eliazar R Mancia. Performed By: #### L 500.4050, L501.5200, L501.2300 ####[facility] [address] [place], [address] Sodium [Moles/Vol] 129 mmol/L Low 133-145 [facility] Comment on above: Order Comment: REDRA W. PREVIOUS SPECIMEN REJECTED DUE TOCONTAMINATION. 01/10/25409 Eliazar R Mancia. Performed By: #### L 500.4050, L501.5200, L501.2300 ####[facility] [address] [place], [address] T PROT 5.0 g/dL Low 5.9-8.4 [facility] Comment on above: Order Comment: REDRA W. PREVIOUS SPECIMEN REJECTED DUE TOCONTAMINATION. 01/10/25409 Eliazar R Mancia. Performed By: #### L 500.4050, L501.5200, L501.2300 ####[facility] [address] [place], [address] Urea nitrogen [Mass/Vol] 27 mg/dL High 4-19 [facility] Comment on above: Order Comment: REDRA W. PREVIOUS SPECIMEN REJECTED DUE TOCONTAMINATION. 01/10/25409 Eliazar R Mancia. Performed By: #### L 500.4050, L501.5200, L501.2300 ####[facility] [address] [place], [address] Magnesiumon 01-10-2025 Magnesium [Mass/Vol] 1.4 mg/dL Low 1.5-2.2 [facility] Comment on above: Order Comment: REDRA W. PREVIOUS SPECIMEN REJECTED DUE TOCONTAMINATION. 01/10/25409 Eliazar R Mancia. Performed By: #### L 500.4050, L501.5200, L501.2300 ####[facility] [address] [place], [address] Phosphoruson 01-10-2025 Phosphate [Mass/Vol] 3.5 mg/dL Normal 2.7-4.5 [facility] Comment on above: Order Comment: REDRA W. PREVIOUS SPECIMEN REJECTED DUE TOCONTAMINATION. 01/10/25409 Eliazar R Mancia. Performed By: #### L 500.4050, L501.5200, L501.2300 ####[facility] [address] [place], [address] Absolute lymphocyte countOrd ered By: Remus Ungbrandon on 01-09-2025 Lymphocytes Auto (Unsp spec) [#/Vol] 0.95 10*3/uL 0.83-4.51 [facility] Anion gap in Serum or Plasma Ordered By: Remus Ungur on 01-09-2025 Anion gap [Moles/Vol] 13 mmol/L 5-15 [facility] Automated lymphocyte count a s percentage of total leukocytesOrdered By: Remus Ungur on 01-09-2025 Lymphocytes/100 WBC Auto (Unsp spec) 7.2 % Low 19-41 [facility] BUN/creatinine ratioOrdered By: Remus Ungur on 01-09-2025 Urea nitrogen/Creatinine [Mass ratio] 13.4 mg/mg 10-20 [facility] Basophil percentageOrdered B y: Remus Ungbrandon on 01-09-2025 Basophils/100 WBC (Bld) 0.4 % 0-1 [facility] Bilirubin Test strip Ql (U)O rdered By: Remus Ungbrandon on 01-09-2025 Bilirubin Ql (U) 1 mg/dL High Negative [facility] Bilirubin, totalOrdered By: Remus Ungbrandon on 01-09-2025 Bilirubin [Mass/Vol] 1.15 mg/dL 0.00-1.30 [facility] Blood cultureOrdered By: Rem us Ungbrandon on 01-09-2025 Bacteria identified Cx Nom (Bld) No growth in 5 days. [facility] Bacteria identified Cx Nom (Bld) No growth in 5 days. [facility] CO2 (BldV) [Moles/Vol]Ordere d By: Yaritza Leo on 01-09-2025 CO2 [Moles/Vol] 15 mmol/L Low 23-33 [facility] Carbon dioxide, total [Moles /volume] in Central venous bloodOrdered By: Rem Ungbrandon on 01-09-2025 CO2 [Moles/Vol] 13.6 mmol/L Low 21.0-32.0 [facility] Chloride assayOrdered By: Josselyn Mendez on 01-09-2025 Chloride [Moles/Vol] 103 mmol/L 98-108 [facility] Eosinophil percentageOrdered By: Remus Ungur on 01-09-2025 Eosinophils/100 WBC (Bld) 4.2 % 0-5 [facility] Erythrocyte distribution wid th ratioOrdered By: Breann Mendez on 01-09-2025 Erythrocyte distribution width (RBC) [Ratio] 18.1 % High 11.6-14.6 [facility] Erythrocyte distribution wid th standard deviationOrdered By: Breann Mendez on 01-09-2025 Erythrocyte distribution width (RBC) [Ratio] 57.5 fl High 35.1-43.9 [facility] Glomerular filtration rate ( GFR) estimation/1.73 sq m using serum, plasma, or whole bOrdered By: Breann Mendez on 01-09-2025 GFR/1.73 sq M.predicted among non-blacks MDRD (S/P/Bld) [Vol rate/Area] 44 mL/min/{1.73_m2} Low >60 [facility] Hematocrit Auto (Bld) [Volum e fraction]Ordered By: Breann Mendez on 01-09-2025 Hematocrit (Bld) [Volume fraction] 24.3 % Low 40-54 [facility] Hemoglobin measurementOrdere d By: Breann Mendez on 01-09-2025 Hemoglobin (Bld) [Mass/Vol] 7.9 g/dL Low 13.0-16.5 [facility] Immature granulocytes/100 WB C Auto (Bld)Ordered By: Breann Mendez on 01-09-2025 Immature granulocytes/100 WBC (Bld) 0.900 % 0.0-0.9 [facility] Ketones Test strip Ql (U)Ord ered By: Breann Mendez on 01-09-2025 Ketones Ql (U) 5 mg/dl High Negative [facility] MCV (mean corpuscular volume ) determinationOrdered By: Breann Mendez on 01-09-2025 MCV (RBC) [Entitic vol] 90.3 fL 80-94 [facility] Mean corpuscular hemoglobin (MCH) determinationOrdered By: Breann Mendez on 01-09-2025 MCH (RBC) [Entitic mass] 29.4 pg 27.0-32.0 [facility] Monocyte percentageOrdered B y: Breann Mendez on 01-09-2025 Monocytes/100 WBC (Bld) 6.7 % 0-10 [facility] Mucus LM Ql (Urine sed)Order ed By: Breann Mendez on 01-09-2025 Mucus Ql (Urine sed) 0 SEEN /hpf [facility] Neutrophil percentageOrdered By: Breann Mendez on 01-09-2025 Neutrophils/100 WBC (Bld) 80.6 % High 47-70 [facility] Nitrite Test strip Ql (U)Ord ered By: Breann Mendez on 01-09-2025 Nitrite Ql (U) Negative Negative [facility] No Panel InformationOrdered By: Yaritza Leo on 01-09-2025 TRAMAINE [facility] Not entered [facility] No Panel InformationOrdered By: Breann Mendez on 01-09-2025 68 U/L High <38 [facility] Platelet countOrdered By: Josselyn Mendez on 01-09-2025 Platelets (Bld) [#/Vol] 114 10*3/uL Low 150-450 [facility] Potassium measurement (mass/ volume)Ordered By: Breann Mendez on 01-09-2025 Potassium (Unsp spec) [Mass/Vol] 3.6 mmol/L 3.3-5.1 [facility] Protein Test strip Ql (U)Ord ered By: Breann Mendez on 01-09-2025 Protein Ql (U) 500 mg/dl High Negative [facility] RBC Auto (Bld) [#/Vol]Ordere d By: Breann Mendez on 01-09-2025 RBC (Bld) [#/Vol] 2.69 10*6/uL Low 4.6-6.2 [facility] Serum creatinine measurement (mass/volume)Ordered By: Breann Mendez on 01-09-2025 Creatinine [Mass/Vol] 1.77 mg/dL High 0.70-1.20 [facility] Serum globulin measurementOr dered By: Breann Mendez on 01-09-2025 Globulin (S) [Mass/Vol] 2.9 g/dL 2.2-4.2 [facility] Serum glucose measurement (m ass/volume)Ordered By: Breann Mendez on 01-09-2025 Glucose [Mass/Vol] 149 mg/dL High 70-99 [facility] Serum or plasma alanine thomas otransferase (ALT) measurementOrdered By: Breann Mendez on 01-09-2025 ALT [Catalytic activity/Vol] 42 U/L <47 [facility] Serum or plasma albumin roosevelt urement (mass/volume)Ordered By: Breann Mendez on 01-09-2025 Albumin [Mass/Vol] 2.4 g/dL Low 3.5-5.0 [facility] Serum or plasma albumin/glob ulin mass ratioOrdered By: Breann Mendez on 01-09-2025 Albumin/Globulin [Mass ratio] 0.8 {ratio} Low 0.9-2.4 [facility] Serum or plasma alkaline kendrick sphatase measurementOrdered By: Breann Mendez on 01-09-2025 ALP [Catalytic activity/Vol] 196 U/L High 40-129 [facility] Serum or plasma calcium roosevelt urement (mass/volume)Ordered By: Breann Mendez on 01-09-2025 Calcium [Mass/Vol] 8.4 mg/dL 7.6-11.0 [facility] Serum or plasma creatine kin ase activityOrdered By: Yaritza Leo on 01-09-2025 CK [Catalytic activity/Vol] 34 U/L 24-195 [facility] Serum or plasma urea nitroge n measurement (mass/volume)Ordered By: Breann Mendez on 01-09-2025 Urea nitrogen [Mass/Vol] 24 mg/dL High 4-19 [facility] Sodium levelOrdered By: Veena Mendez on 01-09-2025 Sodium [Moles/Vol] 129 mmol/L Low 133-145 [facility] Squamous epithelial cells de tection in urine sediment by light microscopyOrdered By: Breann Mendez on 01-09-2025 Epithelial cells.squamous LM Ql (Urine sed) 0-5 SEEN /hpf 0-5 [facility] Total proteinOrdered By: Ramona Mendez on 01-09-2025 Protein [Mass/Vol] 5.3 g/dL Low 5.9-8.4 [facility] Urine clarityOrdered By: Ramona Mendez on 01-09-2025 Clarity (U) Turbid Clear [facility] Urine color determinationOrd ered By: Breann Mendez on 01-09-2025 Color (U) Red Yellow [facility] Urine cultureOrdered By: Ramona Mendez on 01-09-2025 Bacteria identified Cx Nom (U) Yeast, not Mary albicans Abnormal [facility] Urine glucose detectionOrder ed By: Breann Mendez on 01-09-2025 Glucose Ql (U) Normal mg/dl Normal [facility] Urine leukocyte esterase det ection by dipstickOrdered By: Breann Mendez on 01-09-2025 Leukocyte esterase Test strip Ql (U) 500 /ul High Negative [facility] Urine pHOrdered By: Breann Un gur on 01-09-2025 pH (U) 6.0 [pH] 5.0 - 8.0 [facility] Urine sediment bacteria coun t by microscopy (number/high power field)Ordered By: Breann Mendez on 01-09-2025 Bacteria LM.HPF (Urine sed) [#/Area] 0 /[HPF] None Seen [facility] Urine specific gravity measu rementOrdered By: Breann Mendez on 01-09-2025 Specific gravity (U) [Rel density] 1.015 1.002-1.030 [facility] Urine urobilinogen measureme ntOrdered By: Breann Mendez on 01-09-2025 Urobilinogen Ql (U) Normal mg/dl Normal [facility] Venous blood ammonia measure mentOrdered By: Lupillo Robbins on 01-09-2025 Ammonia (P) [Moles/Vol] 61.1 umol/L High 16-60 [facility] Venous blood base excess wei surementOrdered By: Yaritza Leo on 01-09-2025 Base excess Calc (BldV) [Moles/Vol] -11 mmol/L Low -1.0-3.5 [facility] Venous blood bicarbonate wei surementOrdered By: Yaritza Leo on 01-09-2025 HCO3 (Bld) [Moles/Vol] 14 mmol/L Low 22-26 [facility] Venous blood pH measurementO rdered By: Yaritza Leo on 01-09-2025 pH (BldV) 7.36 [pH] 7.32-7.42 [facility] Venous blood partial pressur e of carbon dioxide measurementOrdered By: Yaritza Leo on 01-09-2025 CO2 (BldV) [Partial pressure] 24.7 mm[Hg] Low 41-51 [facility] Venous blood partial pressur e of oxygen measurementOrdered By: Yaritza Leo on 01-09-2025 Oxygen (BldV) [Partial pressure] 49 mm[Hg] High 25-40 [facility] White blood cell (WBC) count Ordered By: Breann Mendez on 01-09-2025 WBC (Bld) [#/Vol] 13.2 10*3/uL High 4.4-11.0 [facility] White blood cell countOrdere d By: Breann Mendez on 01-09-2025 White blood cell count 50-100 SEEN /hpf 0-5 [facility] Absolute lymphocyte countOrd ered By: Hill Acuña on 01-05-2025 Lymphocytes Auto (Unsp spec) [#/Vol] 0.94 10*3/uL 0.83-4.51 [facility] Anion gap in Serum or Plasma Ordered By: Hill Acuña on 01-05-2025 Anion gap [Moles/Vol] 9 mmol/L 5-15 [facility] Automated lymphocyte count a s percentage of total leukocytesOrdered By: Hill Acuña on 01-05-2025 Lymphocytes/100 WBC Auto (Unsp spec) 13.4 % Low 19-41 [facility] BUN/creatinine ratioOrdered By: Hill Acuña on 01-05-2025 Urea nitrogen/Creatinine [Mass ratio] 11.9 mg/mg 10-20 [facility] Basophil percentageOrdered B y: Hill Acuña on 01-05-2025 Basophils/100 WBC (Bld) 0.4 % 0-1 [facility] Carbon dioxide, total [Moles /volume] in Central venous bloodOrdered By: Hill Acuña on 01-05-2025 CO2 [Moles/Vol] 18.5 mmol/L Low 21.0-32.0 [facility] Chloride assayOrdered By: Kvng Acuña on 01-05-2025 Chloride [Moles/Vol] 101 mmol/L 98-108 [facility] Eosinophil percentageOrdered By: Hill Acuña on 01-05-2025 Eosinophils/100 WBC (Bld) 5.1 % High 0-5 [facility] Erythrocyte distribution wid th ratioOrdered By: Hill Acuña on 01-05-2025 Erythrocyte distribution width (RBC) [Ratio] 16.4 % High 11.6-14.6 [facility] Erythrocyte distribution wid th standard deviationOrdered By: Hill Acuña on 01-05-2025 Erythrocyte distribution width (RBC) [Ratio] 51.8 fl High 35.1-43.9 [facility] Glomerular filtration rate ( GFR) estimation/1.73 sq m using serum, plasma, or whole bOrdered By: Hill Acuña on 01-05-2025 GFR/1.73 sq M.predicted among non-blacks MDRD (S/P/Bld) [Vol rate/Area] 92 mL/min/{1.73_m2} >60 [facility] Gl[facility] deOrdered By: Hill Acuña on 01-05-2025 Glucose [Mass/Vol] 163 mg/dL High 74-106 [facility] Glucose [Mass/Vol] 191 mg/dL High 74-106 [facility] Hematocrit Auto (Bld) [Volum e fraction]Ordered By: Hill Acuña on 01-05-2025 Hematocrit (Bld) [Volume fraction] 22.3 % Low 40-54 [facility] Hemoglobin measurementOrdere d By: Hill Acuña on 01-05-2025 Hemoglobin (Bld) [Mass/Vol] 7.5 g/dL Low 13.0-16.5 [facility] Immature granulocytes/100 WB C Auto (Bld)Ordered By: Hill Acuña on 01-05-2025 Immature granulocytes/100 WBC (Bld) 0.400 % 0.0-0.9 [facility] MCV (mean corpuscular volume ) determinationOrdered By: Hill Acuña on 01-05-2025 MCV (RBC) [Entitic vol] 86.4 fL 80-94 [facility] Mean corpuscular hemoglobin (MCH) determinationOrdered By: Hill Acuña on 01-05-2025 MCH (RBC) [Entitic mass] 29.1 pg 27.0-32.0 [facility] Monocyte percentageOrdered B y: Hill Acuña on 06-04-2025 Monocytes/100 WBC (Bld) 11.6 % High 0-10 [facility] Neutrophil percentageOrdered By: Hill Acuña on 01-05-2025 Neutrophils/100 WBC (Bld) 69.1 % 47-70 [facility] Platelet countOrdered By: Kvng Acuña on 01-05-2025 Platelets (Bld) [#/Vol] 81 10*3/uL Low 150-450 [facility] Potassium measurement (mass/ volume)Ordered By: Hill Acuña on 01-05-2025 Potassium (Unsp spec) [Mass/Vol] 3.6 mmol/L 3.3-5.1 [facility] RBC Auto (Bld) [#/Vol]Ordere d By: Hill Acuña on 01-05-2025 RBC (Bld) [#/Vol] 2.58 10*6/uL Low 4.6-6.2 [facility] Serum creatinine measurement (mass/volume)Ordered By: Hill Acuña on 01-05-2025 Creatinine [Mass/Vol] 0.95 mg/dL 0.70-1.20 [facility] Serum glucose measurement (m ass/volume)Ordered By: Hill Acuña on 01-05-2025 Glucose [Mass/Vol] 356 mg/dL High 70-99 [facility] Serum or plasma calcium roosevelt urement (mass/volume)Ordered By: Hill Acuña on 01-05-2025 Calcium [Mass/Vol] 7.9 mg/dL 7.6-11.0 [facility] Serum or plasma urea nitroge n measurement (mass/volume)Ordered By: Hill Acuña on 01-05-2025 Urea nitrogen [Mass/Vol] 11 mg/dL 4-19 [facility] Sodium levelOrdered By: Paulino Acuña on 01-05-2025 Sodium [Moles/Vol] 128 mmol/L Low 133-145 [facility] White blood cell (WBC) count Ordered By: Hill Acuña on 01-05-2025 WBC (Bld) [#/Vol] 7.0 10*3/uL 4.4-11.0 [facility] Bilirubin, totalOrdered By: Hill Acuña on 01-04-2025 Bilirubin [Mass/Vol] 0.90 mg/dL 0.00-1.30 [facility] Blood manual differential co mment interpretation (narrative result)Ordered By: Hill Acuña on 01-04-2025 Manual differential comment Marco Antonio (Bld) [Interp] SCANNED [facility] Magnesium measurement (mass/ volume)Ordered By: Hill Acuña on 01-04-2025 Magnesium (Unsp spec) [Mass/Vol] 1.3 mg/dL Low 1.5-2.2 [facility] No Panel InformationOrdered By: Hill Acuña on 01-04-2025 54 U/L High <38 [facility] Serum globulin measurementOr dered By: Hill Acuña on 01-04-2025 Globulin (S) [Mass/Vol] 2.9 g/dL 2.2-4.2 [facility] Serum or plasma alanine thomas otransferase (ALT) measurementOrdered By: Hill Acuña on 01-04-2025 ALT [Catalytic activity/Vol] 26 U/L <47 [facility] Serum or plasma albumin roosevelt urement (mass/volume)Ordered By: Hill Acuña on 01-04-2025 Albumin [Mass/Vol] 2.4 g/dL Low 3.5-5.0 [facility] Serum or plasma albumin/glob ulin mass ratioOrdered By: iHll Acuña on 01-04-2025 Albumin/Globulin [Mass ratio] 0.9 {ratio} 0.9-2.4 [facility] Serum or plasma alkaline kendrick sphatase measurementOrdered By: Hill Acuña on 01-04-2025 ALP [Catalytic activity/Vol] 171 U/L High 40-129 [facility] Total proteinOrdered By: Hugo Acuña on 01-04-2025 Protein [Mass/Vol] 5.3 g/dL Low 5.9-8.4 [facility] Absolute lymphocyte countOrd ered By: Roddy Reeves on 01-02-2025 Lymphocytes Auto (Unsp spec) [#/Vol] 1.55 10*3/uL 0.83-4.51 [facility] Anion gap in Serum or Plasma Ordered By: Roddy Reeves on 01-02-2025 Anion gap [Moles/Vol] 17 mmol/L High 5-15 [facility] Automated lymphocyte count a s percentage of total leukocytesOrdered By: Roddy Reeves on 01-02-2025 Lymphocytes/100 WBC Auto (Unsp spec) 12.2 % Low 19-41 [facility] BUN/creatinine ratioOrdered By: Roddy Reeves on 01-02-2025 Urea nitrogen/Creatinine [Mass ratio] 12.9 mg/mg 10-20 [facility] Basophil percentageOrdered B y: Roddy Reeves on 01-02-2025 Basophils/100 WBC (Bld) 0.4 % 0-1 [facility] Bilirubin Test strip Ql (U)O rdered By: Roddy Reeves on 01-02-2025 Bilirubin Ql (U) Negative Negative [facility] Bilirubin, totalOrdered By: Roddy Reeves on 01-02-2025 Bilirubin [Mass/Vol] 0.90 mg/dL 0.00-1.30 [facility] Carbon dioxide, total [Moles /volume] in Central venous bloodOrdered By: Roddy Reeves on 01-02-2025 CO2 [Moles/Vol] 19.6 mmol/L Low 21.0-32.0 [facility] Chloride assayOrdered By: Catrachito Reeves on 01-02-2025 Chloride [Moles/Vol] 95 mmol/L Low 98-108 [facility] Eosinophil percentageOrdered By: Roddy Reeves on 01-02-2025 Eosinophils/100 WBC (Bld) 6.9 % High 0-5 [facility] Erythrocyte distribution wid th ratioOrdered By: Roddy Reeves on 01-02-2025 Erythrocyte distribution width (RBC) [Ratio] 16.4 % High 11.6-14.6 [facility] Erythrocyte distribution wid th standard deviationOrdered By: Roddy Reeves on 01-02-2025 Erythrocyte distribution width (RBC) [Ratio] 51.1 fl High 35.1-43.9 [facility] Glomerular filtration rate ( GFR) estimation/1.73 sq m using serum, plasma, or whole bOrdered By: Roddy Reeves on 01-02-2025 GFR/1.73 sq M.predicted among non-blacks MDRD (S/P/Bld) [Vol rate/Area] 19 mL/min/{1.73_m2} Low >60 [facility] Hematocrit Auto (Bld) [Volum e fraction]Ordered By: Roddy Reeves on 01-02-2025 Hematocrit (Bld) [Volume fraction] 28.0 % Low 40-54 [facility] Hemoglobin measurementOrdere d By: Roddy Reeves on 01-02-2025 Hemoglobin (Bld) [Mass/Vol] 9.5 g/dL Low 13.0-16.5 [facility] Immature granulocytes/100 WB C Auto (Bld)Ordered By: Roddy Reeves on 01-02-2025 Immature granulocytes/100 WBC (Bld) 0.600 % 0.0-0.9 [facility] Ketones Test strip Ql (U)Ord ered By: Roddy Reeves on 01-02-2025 Ketones Ql (U) 5 mg/dl High Negative [facility] MCV (mean corpuscular volume ) determinationOrdered By: Roddy Reeves on 01-02-2025 MCV (RBC) [Entitic vol] 87.2 fL 80-94 [facility] Magnesium measurement (mass/ volume)Ordered By: Roddy Reeves on 01-02-2025 Magnesium (Unsp spec) [Mass/Vol] 2.0 mg/dL 1.5-2.2 [facility] Mean corpuscular hemoglobin (MCH) determinationOrdered By: Roddy Reeves on 01-02-2025 MCH (RBC) [Entitic mass] 29.6 pg 27.0-32.0 [facility] Monocyte percentageOrdered B y: Roddy Reeves on 01-02-2025 Monocytes/100 WBC (Bld) 11.9 % High 0-10 [facility] Mucus LM Ql (Urine sed)Order ed By: Roddy Reeves on 01-02-2025 Mucus Ql (Urine sed) 0 SEEN /hpf [facility] Neutrophil percentageOrdered By: Roddy Reeves on 01-02-2025 Neutrophils/100 WBC (Bld) 68.0 % 47-70 [facility] Nitrite Test strip Ql (U)Ord ered By: Roddy Reeves on 01-02-2025 Nitrite Ql (U) Negative Negative [facility] No Panel InformationOrdered By: Roddy Reeves on 01-02-2025 37 U/L <38 [facility] Platelet countOrdered By: Catrachito Reeves on 01-02-2025 Platelets (Bld) [#/Vol] 171 10*3/uL 150-450 [facility] Potassium measurement (mass/ volume)Ordered By: Roddy Reeves on 01-02-2025 Potassium (Unsp spec) [Mass/Vol] 2.6 mmol/L Low 3.3-5.1 [facility] Protein Test strip Ql (U)Ord ered By: Roddy Reeves on 01-02-2025 Protein Ql (U) 100 mg/dl High Negative [facility] RBC Auto (Bld) [#/Vol]Ordere d By: Roddy Reevse on 01-02-2025 RBC (Bld) [#/Vol] 3.21 10*6/uL Low 4.6-6.2 [facility] Serum creatinine measurement (mass/volume)Ordered By: Roddy Reeves on 01-02-2025 Creatinine [Mass/Vol] 3.54 mg/dL High 0.70-1.20 [facility] Serum globulin measurementOr dered By: Roddy Reeves on 01-02-2025 Globulin (S) [Mass/Vol] 3.4 g/dL 2.2-4.2 [facility] Serum glucose measurement (m ass/volume)Ordered By: Roddy Reeves on 01-02-2025 Glucose [Mass/Vol] 164 mg/dL High 70-99 [facility] Serum or plasma alanine thomas otransferase (ALT) measurementOrdered By: Roddy Reeves on 01-02-2025 ALT [Catalytic activity/Vol] 23 U/L <47 [facility] Serum or plasma albumin roosevelt urement (mass/volume)Ordered By: Roddy Reeves on 01-02-2025 Albumin [Mass/Vol] 2.8 g/dL Low 3.5-5.0 [facility] Serum or plasma albumin/glob ulin mass ratioOrdered By: Roddy Reeves on 01-02-2025 Albumin/Globulin [Mass ratio] 0.8 {ratio} Low 0.9-2.4 [facility] Serum or plasma alkaline kendrick sphatase measurementOrdered By: Roddy Reeves on 01-02-2025 ALP [Catalytic activity/Vol] 191 U/L High 40-129 [facility] Serum or plasma calcium roosevelt urement (mass/volume)Ordered By: Roddy Reeves on 01-02-2025 Calcium [Mass/Vol] 9.0 mg/dL 7.6-11.0 [facility] Serum or plasma ethanol roosevelt urement (mass/volume)Ordered By: Roddy Reeves on 01-02-2025 Ethanol [Mass/Vol] mg/dL <10.1 [facility] Serum or plasma urea nitroge n measurement (mass/volume)Ordered By: Roddy Reeves on 01-02-2025 Urea nitrogen [Mass/Vol] 46 mg/dL High 4-19 [facility] Sodium levelOrdered By: Valentín Reeves on 01-02-2025 Sodium [Moles/Vol] 132 mmol/L Low 133-145 [facility] Squamous epithelial cells de tection in urine sediment by light microscopyOrdered By: Roddy Reeves on 01-02-2025 Epithelial cells.squamous LM Ql (Urine sed) 0 SEEN /hpf 0-5 [facility] Total proteinOrdered By: Zoila Reeves on 01-02-2025 Protein [Mass/Vol] 6.1 g/dL 5.9-8.4 [facility] Urine clarityOrdered By: Zoila Reeves on 01-02-2025 Clarity (U) Turbid Clear [facility] Urine color determinationOrd ered By: Roddy Reeves on 01-02-2025 Color (U) Red Yellow [facility] Urine cultureOrdered By: Zoila Reeves on 01-02-2025 Bacteria identified Cx Nom (U) Yeast, not Mary albicans Abnormal [facility] Urine glucose detectionOrder ed By: Roddy Reeves on 01-02-2025 Glucose Ql (U) Normal mg/dl Normal [facility] Urine leukocyte esterase det ection by dipstickOrdered By: Roddy Reeves on 01-02-2025 Leukocyte esterase Test strip Ql (U) 500 /ul High Negative [facility] Urine pHOrdered By: Roddy gonzalez on 01-02-2025 pH (U) 6.0 [pH] 5.0 - 8.0 [facility] Urine sediment bacteria coun t by microscopy (number/high power field)Ordered By: Roddy Reeves on 01-02-2025 Bacteria LM.HPF (Urine sed) [#/Area] 3 /[HPF] None Seen [facility] Urine specific gravity measu rementOrdered By: Roddy Reeves on 01-02-2025 Specific gravity (U) [Rel density] 1.015 1.002-1.030 [facility] Urine urobilinogen measureme ntOrdered By: Roddy Reeves on 01-02-2025 Urobilinogen Ql (U) Normal mg/dl Normal [facility] Venous blood ammonia measure mentOrdered By: Roddy Reeves on 01-02-2025 Ammonia (P) [Moles/Vol] 40.4 umol/L 16-60 [facility] White blood cell (WBC) count Ordered By: Roddy Reeves on 01-02-2025 WBC (Bld) [#/Vol] 12.7 10*3/uL High 4.4-11.0 [facility] White blood cell countOrdere d By: Roddy Reeves on 01-02-2025 White blood cell count 25-50 SEEN /hpf 0-5 [facility] Absolute lymphocyte countOrd ered By: Mina Blood on 12-30-2024 Lymphocytes Auto (Unsp spec) [#/Vol] 1.31 10*3/uL 0.83-4.51 [facility] Anion gap in Serum or Plasma Ordered By: Mina Blood on 12-30-2024 Anion gap [Moles/Vol] 15 mmol/L 5-15 [facility] Automated lymphocyte count a s percentage of total leukocytesOrdered By: Mina Blood on 12-30-2024 Lymphocytes/100 WBC Auto (Unsp spec) 14.0 % Low 19-41 [facility] BUN/creatinine ratioOrdered By: Mina Blood on 12-30-2024 Urea nitrogen/Creatinine [Mass ratio] 14.1 mg/mg 10-20 [facility] Basophil percentageOrdered B y: Mina Blood on 12-30-2024 Basophils/100 WBC (Bld) 0.4 % 0-1 [facility] Bilirubin Test strip Ql (U)O rdered By: Mina Blood on 12-30-2024 Bilirubin Ql (U) Negative Negative [facility] Carbon dioxide, total [Moles /volume] in Central venous bloodOrdered By: Mina Blood on 12-30-2024 CO2 [Moles/Vol] 22.1 mmol/L 21.0-32.0 [facility] Chloride assayOrdered By: Marcella Blood on 12-30-2024 Chloride [Moles/Vol] 91 mmol/L Low 98-108 [facility] Eosinophil percentageOrdered By: Mina Blood on 12-30-2024 Eosinophils/100 WBC (Bld) 6.2 % High 0-5 [facility] Erythrocyte distribution wid th ratioOrdered By: Mina Blood on 12-30-2024 Erythrocyte distribution width (RBC) [Ratio] 16.1 % High 11.6-14.6 [facility] Erythrocyte distribution wid th standard deviationOrdered By: Mina Blood on 12-30-2024 Erythrocyte distribution width (RBC) [Ratio] 50.9 fl High 35.1-43.9 [facility] Glomerular filtration rate ( GFR) estimation/1.73 sq m using serum, plasma, or whole bOrdered By: Mina Blood on 12-30-2024 GFR/1.73 sq M.predicted among non-blacks MDRD (S/P/Bld) [Vol rate/Area] 37 mL/min/{1.73_m2} Low >60 [facility] deOrdered By: Mina Blood on 12-30-2024 Glucose [Mass/Vol] 453 mg/dL High 74-106 [facility] Hematocrit Auto (Bld) [Volum e fraction]Ordered By: Mina Blood on 12-30-2024 Hematocrit (Bld) [Volume fraction] 25.8 % Low 40-54 [facility] Hemoglobin measurementOrdere d By: Mina Blood on 12-30-2024 Hemoglobin (Bld) [Mass/Vol] 8.7 g/dL Low 13.0-16.5 [facility] Immature granulocytes/100 WB C Auto (Bld)Ordered By: Mina Blood on 12-30-2024 Immature granulocytes/100 WBC (Bld) 0.600 % 0.0-0.9 [facility] Ketones Test strip Ql (U)Ord ered By: Mina Blood on 12-30-2024 Ketones Ql (U) Negative Negative [facility] MCV (mean corpuscular volume ) determinationOrdered By: Mina Blood on 12-30-2024 MCV (RBC) [Entitic vol] 88.1 fL 80-94 [facility] Magnesium measurement (mass/ volume)Ordered By: Mina Blood on 12-30-2024 Magnesium (Unsp spec) [Mass/Vol] 1.3 mg/dL Low 1.5-2.2 [facility] Mean corpuscular hemoglobin (MCH) determinationOrdered By: Mina Blood on 12-30-2024 MCH (RBC) [Entitic mass] 29.7 pg 27.0-32.0 [facility] Monocyte percentageOrdered B y: Mina Blood on 12-30-2024 Monocytes/100 WBC (Bld) 9.1 % 0-10 [facility] Mucus LM Ql (Urine sed)Order ed By: Mina Blood on 12-30-2024 Mucus Ql (Urine sed) 0 SEEN /hpf [facility] Neutrophil percentageOrdered By: Mina Blood on 12-30-2024 Neutrophils/100 WBC (Bld) 69.7 % 47-70 [facility] Nitrite Test strip Ql (U)Ord ered By: Mina Blood on 12-30-2024 Nitrite Ql (U) Negative Negative [facility] Platelet countOrdered By: Marcella Blood on 12-30-2024 Platelets (Bld) [#/Vol] 131 10*3/uL Low 150-450 [facility] Potassium measurement (mass/ volume)Ordered By: Mina Blood on 12-30-2024 Potassium (Unsp spec) [Mass/Vol] 3.2 mmol/L Low 3.3-5.1 [facility] Protein Test strip Ql (U)Ord ered By: Mina Blood on 12-30-2024 Protein Ql (U) 100 mg/dl High Negative [facility] RBC Auto (Bld) [#/Vol]Ordere d By: Mina Blood on 12-30-2024 RBC (Bld) [#/Vol] 2.93 10*6/uL Low 4.6-6.2 [facility] Serum creatinine measurement (mass/volume)Ordered By: Mina Blood on 12-30-2024 Creatinine [Mass/Vol] 2.05 mg/dL High 0.70-1.20 [facility] Serum glucose measurement (m ass/volume)Ordered By: Mina Blood on 12-30-2024 Glucose [Mass/Vol] 608 mg/dL High 70-99 [facility] Serum or plasma calcium roosevelt urement (mass/volume)Ordered By: Mina Blood on 12-30-2024 Calcium [Mass/Vol] 9.1 mg/dL 7.6-11.0 [facility] Serum or plasma urea nitroge n measurement (mass/volume)Ordered By: Mina Blood on 12-30-2024 Urea nitrogen [Mass/Vol] 29 mg/dL High 4-19 [facility] Sodium levelOrdered By: Magen Blood on 12-30-2024 Sodium [Moles/Vol] 128 mmol/L Low 133-145 [facility] Squamous epithelial cells de tection in urine sediment by light microscopyOrdered By: Mina Blood on 12-30-2024 Epithelial cells.squamous LM Ql (Urine sed) 0-5 SEEN /hpf 0-5 [facility] Transitional cells detection in urine sediment by light microscopyOrdered By: Mina Blood on 12-30-2024 Transitional cells LM Ql (Urine sed) 0-5 SEEN /hpf 0-5 [facility] Troponin T.cardiac [Mass/vol ume] in Serum or Plasma by High sensitivity methodOrdered By: Mina Blood on 12-30-2024 Troponin T.cardiac High sensitivity method [Mass/Vol] 20 ng/L <22 [facility] Troponin T.cardiac High sensitivity method [Mass/Vol] 19 ng/L <22 [facility] Urine clarityOrdered By: Ever Blood on 12-30-2024 Clarity (U) Cloudy Clear [facility] Urine color determinationOrd ered By: Mina Blood on 12-30-2024 Color (U) Lexis Yellow [facility] Urine cultureOrdered By: Ever Blood on 12-30-2024 Bacteria identified Cx Nom (U) GPC Poss Enterococcus sp Abnormal [facility] Bacteria identified Cx Nom (U) Positive Abnormal [facility] Urine glucose detectionOrder ed By: Mina Blood on 12-30-2024 Glucose Ql (U) 1000 mg/dl High Normal [facility] Urine leukocyte esterase det ection by dipstickOrdered By: Mina Blood on 12-30-2024 Leukocyte esterase Test strip Ql (U) 500 /ul High Negative [facility] Urine pHOrdered By: Mina ferrer on 12-30-2024 pH (U) 6.5 [pH] 5.0 - 8.0 [facility] Urine sediment bacteria coun t by microscopy (number/high power field)Ordered By: Mina Blood on 12-30-2024 Bacteria LM.HPF (Urine sed) [#/Area] 1 /[HPF] None Seen [facility] Urine specific gravity measu rementOrdered By: Mina Blood on 12-30-2024 Specific gravity (U) [Rel density] 1.010 1.002-1.030 [facility] Urine urobilinogen measureme ntOrdered By: Mina Blood on 12-30-2024 Urobilinogen Ql (U) Normal mg/dl Normal [facility] White blood cell (WBC) count Ordered By: Mina Blood on 12-30-2024 WBC (Bld) [#/Vol] 9.4 10*3/uL 4.4-11.0 [facility] White blood cell countOrdere d By: Mina Blood on 12-30-2024 White blood cell count >100 SEEN /hpf 0-5 [facility] Absolute lymphocyte countOrd ered By: Boone Carvajal on 12-26-2024 Lymphocytes Auto (Unsp spec) [#/Vol] 1.69 10*3/uL 0.83-4.51 [facility] Activated partial thrombopla stin time (aPTT) in platelet poor plasma by coagulation aOrdered By: Boone Carvajal on 12-26-2024 aPTT Coag (PPP) [Time] 36.3 s High 24.1-36.2 [facility] Anion gap in Serum or Plasma Ordered By: Boone Carvajal on 12-26-2024 Anion gap [Moles/Vol] 14 mmol/L 5-15 [facility] Automated lymphocyte count a s percentage of total leukocytesOrdered By: Boone Carvajal on 12-26-2024 Lymphocytes/100 WBC Auto (Unsp spec) 15.3 % Low 19-41 [facility] BUN/creatinine ratioOrdered By: Boone Carvajal on 12-26-2024 Urea nitrogen/Creatinine [Mass ratio] 10.3 mg/mg 10-20 [facility] Basophil percentageOrdered B y: Boone Carvajal on 12-26-2024 Basophils/100 WBC (Bld) 0.5 % 0-1 [facility] Beta-hydroxybutyrateOrdered By: Boone Carvajal on 12-26-2024 Beta hydroxybutyrate [Mass/Vol] 0.1 mmol/L 0.0-0.3 [facility] Bilirubin Test strip Ql (U)O rdered By: Boone Carvajal on 12-26-2024 Bilirubin Ql (U) Negative Negative [facility] Bilirubin, totalOrdered By: Boone Carvajal on 12-26-2024 Bilirubin [Mass/Vol] 1.04 mg/dL 0.00-1.30 [facility] Carbon dioxide, total [Moles /volume] in Central venous bloodOrdered By: Boone Carvajal on 12-26-2024 CO2 [Moles/Vol] 20.4 mmol/L Low 21.0-32.0 [facility] Chloride assayOrdered By: Hunter Carvajal on 12-26-2024 Chloride [Moles/Vol] 100 mmol/L 98-108 [facility] Eosinophil percentageOrdered By: Boone Carvajal on 12-26-2024 Eosinophils/100 WBC (Bld) 5.8 % High 0-5 [facility] Erythrocyte distribution wid th ratioOrdered By: Boone Carvajal on 12-26-2024 Erythrocyte distribution width (RBC) [Ratio] 16.3 % High 11.6-14.6 [facility] Erythrocyte distribution wid th standard deviationOrdered By: Boone Carvajal on 12-26-2024 Erythrocyte distribution width (RBC) [Ratio] 54.4 fl High 35.1-43.9 [facility] Glomerular filtration rate ( GFR) estimation/1.73 sq m using serum, plasma, or whole bOrdered By: Boone Carvajal on 12-26-2024 GFR/1.73 sq M.predicted among non-blacks MDRD (S/P/Bld) [Vol rate/Area] 30 mL/min/{1.73_m2} Low >60 [facility] Hematocrit Auto (Bld) [Volum e fraction]Ordered By: Boone Carvajal on 12-26-2024 Hematocrit (Bld) [Volume fraction] 29.6 % Low 40-54 [facility] Hemoglobin measurementOrdere d By: Boone Carvajal on 12-26-2024 Hemoglobin (Bld) [Mass/Vol] 9.6 g/dL Low 13.0-16.5 [facility] Immature granulocytes/100 WB C Auto (Bld)Ordered By: Boone Carvajal on 12-26-2024 Immature granulocytes/100 WBC (Bld) 0.500 % 0.0-0.9 [facility] Ketones Test strip Ql (U)Ord ered By: Boone Carvajal on 12-26-2024 Ketones Ql (U) 5 mg/dl High Negative [facility] MCV (mean corpuscular volume ) determinationOrdered By: Boone Carvajal on 12-26-2024 MCV (RBC) [Entitic vol] 90.8 fL 80-94 [facility] Mean corpuscular hemoglobin (MCH) determinationOrdered By: Boone Carvajal on 12-26-2024 MCH (RBC) [Entitic mass] 29.4 pg 27.0-32.0 [facility] Monocyte percentageOrdered B y: Boone Carvajal on 12-26-2024 Monocytes/100 WBC (Bld) 7.4 % 0-10 [facility] Mucus LM Ql (Urine sed)Order ed By: Boone Carvajal on 12-26-2024 Mucus Ql (Urine sed) 0 SEEN /hpf [facility] Neutrophil percentageOrdered By: Boone Carvajal on 12-26-2024 Neutrophils/100 WBC (Bld) 70.5 % High 47-70 [facility] Nitrite Test strip Ql (U)Ord ered By: Boone Carvajal on 12-26-2024 Nitrite Ql (U) Negative Negative [facility] No Panel InformationOrdered By: Boone Carvajal on 12-26-2024 58 U/L High <38 [facility] Platelet countOrdered By: Hunter Carvajal on 12-26-2024 Platelets (Bld) [#/Vol] 139 10*3/uL Low 150-450 [facility] Potassium measurement (mass/ volume)Ordered By: Boone Carvajal on 12-26-2024 Potassium (Unsp spec) [Mass/Vol] 3.5 mmol/L 3.3-5.1 [facility] Protein Test strip Ql (U)Ord ered By: Boone Carvajal on 12-26-2024 Protein Ql (U) 500 mg/dl High Negative [facility] Prothrombin timeOrdered By: Boone Carvajal on 12-26-2024 PT Coag (PPP) [Time] 18.5 s High 11.7-14.9 [facility] RBC Auto (Bld) [#/Vol]Ordere d By: Boone Carvajal on 12-26-2024 RBC (Bld) [#/Vol] 3.26 10*6/uL Low 4.6-6.2 [facility] Serum creatinine measurement (mass/volume)Ordered By: Boone Carvajal on 12-26-2024 Creatinine [Mass/Vol] 2.42 mg/dL High 0.70-1.20 [facility] Serum globulin measurementOr dered By: Boone Carvajal on 12-26-2024 Globulin (S) [Mass/Vol] 3.5 g/dL 2.2-4.2 [facility] Serum glucose measurement (m ass/volume)Ordered By: Boone Carvajal on 12-26-2024 Glucose [Mass/Vol] 386 mg/dL High 70-99 [facility] Serum or plasma alanine thomas otransferase (ALT) measurementOrdered By: Boone Carvajal on 12-26-2024 ALT [Catalytic activity/Vol] 27 U/L <47 [facility] Serum or plasma albumin roosevelt urement (mass/volume)Ordered By: Boone Carvajal on 12-26-2024 Albumin [Mass/Vol] 2.8 g/dL Low 3.5-5.0 [facility] Serum or plasma albumin/glob ulin mass ratioOrdered By: Boone Carvajal on 12-26-2024 Albumin/Globulin [Mass ratio] 0.8 {ratio} Low 0.9-2.4 [facility] Serum or plasma alkaline kendrick sphatase measurementOrdered By: Boone Carvajal on 12-26-2024 ALP [Catalytic activity/Vol] 207 U/L High 40-129 [facility] Serum or plasma calcium roosevelt urement (mass/volume)Ordered By: Boone Carvajal on 12-26-2024 Calcium [Mass/Vol] 8.9 mg/dL 7.6-11.0 [facility] Serum or plasma urea nitroge n measurement (mass/volume)Ordered By: Boone Carvajla on 12-26-2024 Urea nitrogen [Mass/Vol] 25 mg/dL High 4-19 [facility] Sodium levelOrdered By: Boone Carvajal on 12-26-2024 Sodium [Moles/Vol] 135 mmol/L 133-145 [facility] Squamous epithelial cells de tection in urine sediment by light microscopyOrdered By: Boone Carvajal on 12-26-2024 Epithelial cells.squamous LM Ql (Urine sed) 0 SEEN /hpf 0-5 [facility] Total proteinOrdered By: Danita Carvajal on 12-26-2024 Protein [Mass/Vol] 6.3 g/dL 5.9-8.4 [facility] Urine clarityOrdered By: Danita Carvajal on 12-26-2024 Clarity (U) Cloudy Clear [facility] Urine color determinationOrd ered By: Boone Carvajal on 12-26-2024 Color (U) Lexis Yellow [facility] Urine cultureOrdered By: Danita Carvajal on 12-26-2024 Bacteria identified Cx Nom (U) Enterococcus faecalis Abnormal [facility] Bacteria identified Cx Nom (U) 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 Abnormal [facility] Urine glucose detectionOrder ed By: Boone Carvajal on 12-26-2024 Glucose Ql (U) Normal mg/dl Normal [facility] Urine leukocyte esterase det ection by dipstickOrdered By: Boone Carvajal on 12-26-2024 Leukocyte esterase Test strip Ql (U) 500 /ul High Negative [facility] Urine pHOrdered By: Boone romo on 12-26-2024 pH (U) 6.0 [pH] 5.0 - 8.0 [facility] Urine sediment bacteria coun t by microscopy (number/high power field)Ordered By: Boone Carvajal on 12-26-2024 Bacteria LM.HPF (Urine sed) [#/Area] 0 /[HPF] None Seen [facility] Urine specific gravity measu rementOrdered By: Boone Carvajal on 12-26-2024 Specific gravity (U) [Rel density] 1.015 1.002-1.030 [facility] Urine urobilinogen measureme ntOrdered By: Boone Carvajal on 12-26-2024 Urobilinogen Ql (U) Normal mg/dl Normal [facility] Venous blood ammonia measure mentOrdered By: Boone Carvajal on 12-26-2024 Ammonia (P) [Moles/Vol] 114.0 umol/L High 16-60 [facility] White blood cell (WBC) count Ordered By: Boone Carvajal on 12-26-2024 WBC (Bld) [#/Vol] 11.0 10*3/uL 4.4-11.0 [facility] White blood cell countOrdere d By: Boone Carvajal on 12-26-2024 White blood cell count 25-50 SEEN /hpf 0-5 [facility] Absolute lymphocyte countOrd ered By: Josy Elias on 12-07-2024 Lymphocytes Auto (Unsp spec) [#/Vol] 1.71 10*3/uL 0.83-4.51 [facility] Anion gap in Serum or Plasma Ordered By: Josy Elias on 12-07-2024 Anion gap [Moles/Vol] 12 mmol/L 5-15 [facility] Automated lymphocyte count a s percentage of total leukocytesOrdered By: Josy Elias on 12-07-2024 Lymphocytes/100 WBC Auto (Unsp spec) 18.4 % Low 19-41 [facility] BUN/creatinine ratioOrdered By: Josy Elias on 12-07-2024 Urea nitrogen/Creatinine [Mass ratio] 10.0 mg/mg 10-20 [facility] Basophil percentageOrdered B y: Josy Elias on 12-07-2024 Basophils/100 WBC (Bld) 0.6 % 0-1 [facility] Bilirubin, totalOrdered By: Josy Elias on 12-07-2024 Bilirubin [Mass/Vol] 1.21 mg/dL 0.00-1.30 [facility] CNPTOUTREACHon 12-07-2024 CNPTOUTREACH Normal [facility] [facility] Carbon dioxide, total [Moles /volume] in Central venous bloodOrdered By: Josy Elias on 12-07-2024 CO2 [Moles/Vol] 20.0 mmol/L Low 21.0-32.0 [facility] Chloride assayOrdered By: Monica Elias on 12-07-2024 Chloride [Moles/Vol] 103 mmol/L 98-108 [facility] Eosinophil percentageOrdered By: Josy Elias on 12-07-2024 Eosinophils/100 WBC (Bld) 5.1 % High 0-5 [facility] Erythrocyte distribution wid th ratioOrdered By: Josy Elias on 12-07-2024 Erythrocyte distribution width (RBC) [Ratio] 16.9 % High 11.6-14.6 [facility] Erythrocyte distribution wid th standard deviationOrdered By: Josy Elias on 12-07-2024 Erythrocyte distribution width (RBC) [Ratio] 57.4 fl High 35.1-43.9 [facility] Gamma glutamyl transferase ( GGT) measurementOrdered By: Josy Elias on 12-07-2024 Amylase [Catalytic activity/Vol] 103 U/L High 0-65 [facility] Glomerular filtration rate ( GFR) estimation/1.73 sq m using serum, plasma, or whole bOrdered By: Josy Elias on 12-07-2024 GFR/1.73 sq M.predicted among non-blacks MDRD (S/P/Bld) [Vol rate/Area] 44 mL/min/{1.73_m2} Low >60 [facility] Hematocrit Auto (Bld) [Volum e fraction]Ordered By: Josy Elias on 12-07-2024 Hematocrit (Bld) [Volume fraction] 26.2 % Low 40-54 [facility] Hemoglobin A1c percentageOrd ered By: Josy Elias on 12-07-2024 HbA1c (Bld) [Mass fraction] 7.2 % High <5.7 [facility] Hemoglobin measurementOrdere d By: Josy Elias on 12-07-2024 Hemoglobin (Bld) [Mass/Vol] 8.5 g/dL Low 13.0-16.5 [facility] Immature granulocytes/100 WB C Auto (Bld)Ordered By: Josy Elias on 12-07-2024 Immature granulocytes/100 WBC (Bld) 0.300 % 0.0-0.9 [facility] MCV (mean corpuscular volume ) determinationOrdered By: Josy Elias on 12-07-2024 MCV (RBC) [Entitic vol] 93.2 fL 80-94 [facility] Mean corpuscular hemoglobin (MCH) determinationOrdered By: Josy Elias on 12-07-2024 MCH (RBC) [Entitic mass] 30.2 pg 27.0-32.0 [facility] Monocyte percentageOrdered B y: Josy Elias on 12-07-2024 Monocytes/100 WBC (Bld) 12.1 % High 0-10 [facility] Neutrophil percentageOrdered By: Josy Elias on 12-07-2024 Neutrophils/100 WBC (Bld) 63.5 % 47-70 [facility] No Panel InformationOrdered By: Josy Elias on 12-07-2024 37 U/L <38 [facility] Platelet countOrdered By: Monica Elias on 12-07-2024 Platelets (Bld) [#/Vol] 145 10*3/uL Low 150-450 [facility] Potassium measurement (mass/ volume)Ordered By: Josy Elias on 12-07-2024 Potassium (Unsp spec) [Mass/Vol] 3.3 mmol/L 3.3-5.1 [facility] RBC Auto (Bld) [#/Vol]Ordere d By: Josy Elias on 12-07-2024 RBC (Bld) [#/Vol] 2.81 10*6/uL Low 4.6-6.2 [facility] Serum creatinine measurement (mass/volume)Ordered By: Josy Elias on 12-07-2024 Creatinine [Mass/Vol] 1.78 mg/dL High 0.70-1.20 [facility] Serum globulin measurementOr dered By: Josy Elias on 12-07-2024 Globulin (S) [Mass/Vol] 2.9 g/dL 2.2-4.2 [facility] Serum glucose measurement (m ass/volume)Ordered By: Josy Elias on 12-07-2024 Glucose [Mass/Vol] 185 mg/dL High 70-99 [facility] Serum or plasma alanine thomas otransferase (ALT) measurementOrdered By: Josy Elias on 12-07-2024 ALT [Catalytic activity/Vol] 24 U/L <47 [facility] Serum or plasma albumin roosevelt urement (mass/volume)Ordered By: Josy Elias on 12-07-2024 Albumin [Mass/Vol] 2.6 g/dL Low 3.5-5.0 [facility] Serum or plasma albumin/glob ulin mass ratioOrdered By: Josy Elias on 12-07-2024 Albumin/Globulin [Mass ratio] 0.9 {ratio} 0.9-2.4 [facility] Serum or plasma alkaline kendrick sphatase measurementOrdered By: Josy Elias on 12-07-2024 ALP [Catalytic activity/Vol] 241 U/L High 40-129 [facility] Serum or plasma calcium roosevelt urement (mass/volume)Ordered By: Josy Elias on 12-07-2024 Calcium [Mass/Vol] 8.2 mg/dL 7.6-11.0 [facility] Serum or plasma urea nitroge n measurement (mass/volume)Ordered By: Josy Elias on 12-07-2024 Urea nitrogen [Mass/Vol] 18 mg/dL 4-19 [facility] Sodium levelOrdered By: Terrance Elias on 12-07-2024 Sodium [Moles/Vol] 136 mmol/L 133-145 [facility] Total proteinOrdered By: Chinedu Elias on 12-07-2024 Protein [Mass/Vol] 5.5 g/dL Low 5.9-8.4 [facility] White blood cell (WBC) count Ordered By: Josy Elias on 12-07-2024 WBC (Bld) [#/Vol] 9.3 10*3/uL 4.4-11.0 [facility] Absolute lymphocyte countOrd ered By: Hill Acuña on 12-02-2024 Lymphocytes Auto (Unsp spec) [#/Vol] 0.92 10*3/uL 0.83-4.51 [facility] Anion gap in Serum or Plasma Ordered By: Hill Acuña on 12-02-2024 Anion gap [Moles/Vol] 7 mmol/L 5-15 [facility] Automated lymphocyte count a s percentage of total leukocytesOrdered By: Hill Acuña on 12-02-2024 Lymphocytes/100 WBC Auto (Unsp spec) 15.7 % Low 19-41 [facility] BUN/creatinine ratioOrdered By: Hill Acuña on 12-02-2024 Urea nitrogen/Creatinine [Mass ratio] 8.1 mg/mg Low 10-20 [facility] Basophil percentageOrdered B y: Hill Acuña on 12-02-2024 Basophils/100 WBC (Bld) 0.5 % 0-1 [facility] Bilirubin, totalOrdered By: Hill Acuña on 12-02-2024 Bilirubin [Mass/Vol] 1.07 mg/dL 0.00-1.30 [facility] Carbon dioxide, total [Moles /volume] in Central venous bloodOrdered By: Hill Acuña on 12-02-2024 CO2 [Moles/Vol] 21.0 mmol/L 21.0-32.0 [facility] Chloride assayOrdered By: Kvng Acuña on 12-02-2024 Chloride [Moles/Vol] 104 mmol/L 98-108 [facility] Eosinophil percentageOrdered By: Hill Acuña on 12-02-2024 Eosinophils/100 WBC (Bld) 3.6 % 0-5 [facility] Erythrocyte distribution wid th ratioOrdered By: Hill Acuña on 12-02-2024 Erythrocyte distribution width (RBC) [Ratio] 16.2 % High 11.6-14.6 [facility] Erythrocyte distribution wid th standard deviationOrdered By: Hill Acuña on 12-02-2024 Erythrocyte distribution width (RBC) [Ratio] 53.0 fl High 35.1-43.9 [facility] Glomerular filtration rate ( GFR) estimation/1.73 sq m using serum, plasma, or whole bOrdered By: Hill Acuña on 12-02-2024 GFR/1.73 sq M.predicted among non-blacks MDRD (S/P/Bld) [Vol rate/Area] 98 mL/min/{1.73_m2} >60 [facility] Glucose measurement at [facility] deOrdered By: Hill Acuña on 12-02-2024 Glucose [Mass/Vol] 259 mg/dL High 74-106 [facility] Hematocrit Auto (Bld) [Volum e fraction]Ordered By: Hill Acuña on 12-02-2024 Hematocrit (Bld) [Volume fraction] 21.9 % Low 40-54 [facility] Hemoglobin measurementOrdere d By: Hill Acuña on 12-02-2024 Hemoglobin (Bld) [Mass/Vol] 7.2 g/dL Low 13.0-16.5 [facility] Immature granulocytes/100 WB C Auto (Bld)Ordered By: Hill Acuña on 12-02-2024 Immature granulocytes/100 WBC (Bld) 0.500 % 0.0-0.9 [facility] MCV (mean corpuscular volume ) determinationOrdered By: Hill Acuña on 12-02-2024 MCV (RBC) [Entitic vol] 89.8 fL 80-94 [facility] Magnesium measurement (mass/ volume)Ordered By: Hill cAuña on 12-02-2024 Magnesium (Unsp spec) [Mass/Vol] 1.6 mg/dL 1.5-2.2 [facility] Mean corpuscular hemoglobin (MCH) determinationOrdered By: Hill Acuña on 12-02-2024 MCH (RBC) [Entitic mass] 29.5 pg 27.0-32.0 [facility] Monocyte percentageOrdered B y: Hill Acuña on 12-02-2024 Monocytes/100 WBC (Bld) 13.3 % High 0-10 [facility] Neutrophil percentageOrdered By: Hill Acuña on 12-02-2024 Neutrophils/100 WBC (Bld) 66.4 % 47-70 [facility] No Panel InformationOrdered By: Hill Acuña on 12-02-2024 58 U/L High <38 [facility] Platelet countOrdered By: Kvng Acuña on 12-02-2024 Platelets (Bld) [#/Vol] 100 10*3/uL Low 150-450 [facility] Potassium measurement (mass/ volume)Ordered By: Hill Acuña on 12-02-2024 Potassium (Unsp spec) [Mass/Vol] 3.8 mmol/L 3.3-5.1 [facility] RBC Auto (Bld) [#/Vol]Ordere d By: Hill Acuña on 12-02-2024 RBC (Bld) [#/Vol] 2.44 10*6/uL Low 4.6-6.2 [facility] Serum creatinine measurement (mass/volume)Ordered By: Hill Acuña on 12-02-2024 Creatinine [Mass/Vol] 0.90 mg/dL 0.70-1.20 [facility] Serum globulin measurementOr dered By: Hill Acuña on 12-02-2024 Globulin (S) [Mass/Vol] 2.6 g/dL 2.2-4.2 [facility] Serum glucose measurement (m ass/volume)Ordered By: Hill Acuña on 12-02-2024 Glucose [Mass/Vol] 221 mg/dL High 70-99 [facility] Serum or plasma alanine thomas otransferase (ALT) measurementOrdered By: Hill Acuña on 12-02-2024 ALT [Catalytic activity/Vol] 33 U/L <47 [facility] Serum or plasma albumin roosevelt urement (mass/volume)Ordered By: Hill Acuña on 12-02-2024 Albumin [Mass/Vol] 2.5 g/dL Low 3.5-5.0 [facility] Serum or plasma albumin/glob ulin mass ratioOrdered By: Hill Acuña on 12-02-2024 Albumin/Globulin [Mass ratio] 1.0 {ratio} 0.9-2.4 [facility] Serum or plasma alkaline kendrick sphatase measurementOrdered By: Hill Acuña on 12-02-2024 ALP [Catalytic activity/Vol] 219 U/L High 40-129 [facility] Serum or plasma calcium roosevelt urement (mass/volume)Ordered By: Hill Acuña on 12-02-2024 Calcium [Mass/Vol] 7.8 mg/dL 7.6-11.0 [facility] Serum or plasma urea nitroge n measurement (mass/volume)Ordered By: Hill Acuña on 12-02-2024 Urea nitrogen [Mass/Vol] 7 mg/dL 4-19 [facility] Sodium levelOrdered By: Paulino Acuña on 12-02-2024 Sodium [Moles/Vol] 132 mmol/L Low 133-145 [facility] Total proteinOrdered By: Hugo Acuña on 12-02-2024 Protein [Mass/Vol] 5.1 g/dL Low 5.9-8.4 [facility] Trough vancomycin levelOrder ed By: Maria Guadalupe Shore on 12-02-2024 Vancomycin trough [Mass/Vol] 19.6 ug/mL High 5.0-15.0 [facility] White blood cell (WBC) count Ordered By: Hill Acuña on 12-02-2024 WBC (Bld) [#/Vol] 5.9 10*3/uL 4.4-11.0 [facility] Platelet estimateOrdered By: Hill Acuña on 11-30-2024 Platelets LM Ql (Bld) MOD DEC ADEQ [facility] Serum or plasma vancomycin m easurement (mass/volume)Ordered By: Kathie Powers on 11-30-2024 Vancomycin [Mass/Vol] 17.7 ug/mL High 0.0-15.0 [facility] Prothrombin timeOrdered By: Kathie Powers on 11-29-2024 PT Coag (PPP) [Time] 21.1 s High 11.7-14.9 [facility] Bilirubin Test strip Ql (U)O rdered By: Rachel Joiner on 11-28-2024 Bilirubin Ql (U) Negative Negative [facility] Bilirubin directOrdered By: Rachel Joiner on 11-28-2024 Bilirubin.direct [Mass/Vol] 0.72 mg/dL High 0.00-0.30 [facility] Ketones Test strip Ql (U)Ord ered By: Rachel Joiner on 11-28-2024 Ketones Ql (U) 5 mg/dl High Negative [facility] Mucus LM Ql (Urine sed)Order ed By: Rachel Joiner on 11-28-2024 Mucus Ql (Urine sed) 0 SEEN /hpf [facility] Nitrite Test strip Ql (U)Ord ered By: Rachel Joiner on 11-28-2024 Nitrite Ql (U) Positive High Negative [facility] Protein Test strip Ql (U)Ord ered By: Rachel Joiner on 11-28-2024 Protein Ql (U) 100 mg/dl High Negative [facility] Squamous epithelial cells de tection in urine sediment by light microscopyOrdered By: Rachel Joiner on 11-28-2024 Epithelial cells.squamous LM Ql (Urine sed) 0-5 SEEN /hpf 0-5 [facility] Urine clarityOrdered By: Shi Joiner on 11-28-2024 Clarity (U) Cloudy Clear [facility] Urine color determinationOrd ered By: Rachel Joiner on 11-28-2024 Color (U) Lexis Yellow [facility] Urine cultureOrdered By: Tyree Powers on 11-28-2024 Bacteria identified Cx Nom (U) ESBL Klebsiella pneumoniae pne Abnormal [facility] Urine glucose detectionOrder ed By: Rachel Joiner on 11-28-2024 Glucose Ql (U) Normal mg/dl Normal [facility] Urine leukocyte esterase det ection by dipstickOrdered By: Rachel Joiner on 11-28-2024 Leukocyte esterase Test strip Ql (U) 500 /ul High Negative [facility] Urine pHOrdered By: Rachel silva on 11-28-2024 pH (U) 6.5 [pH] 5.0 - 8.0 [facility] Urine sediment bacteria coun t by microscopy (number/high power field)Ordered By: Rachel Joiner on 11-28-2024 Bacteria LM.HPF (Urine sed) [#/Area] 1 /[HPF] None Seen [facility] Urine specific gravity measu rementOrdered By: Rachel Joiner on 11-28-2024 Specific gravity (U) [Rel density] 1.010 1.002-1.030 [facility] Urine urobilinogen measureme ntOrdered By: Rachel Joiner on 11-28-2024 Urobilinogen Ql (U) Normal mg/dl Normal [facility] Venous blood ammonia measure mentOrdered By: Rachel Joiner on 11-28-2024 Ammonia (P) [Moles/Vol] 68.4 umol/L High 16-60 [facility] White blood cell countOrdere d By: Rachel Joiner on 11-28-2024 White blood cell count 50-100 SEEN /hpf 0-5 [facility] Absolute lymphocyte countOrd ered By: Anurag Irene on 11-25-2024 Lymphocytes Auto (Unsp spec) [#/Vol] 0.92 10*3/uL 0.83-4.51 [facility] Anion gap in Serum or Plasma Ordered By: Anurag Irene on 11-25-2024 Anion gap [Moles/Vol] 8 mmol/L 5-15 [facility] Automated lymphocyte count a s percentage of total leukocytesOrdered By: Anurag Irene on 11-25-2024 Lymphocytes/100 WBC Auto (Unsp spec) 16.7 % Low 19-41 [facility] BUN/creatinine ratioOrdered By: Anurag Irene on 11-25-2024 Urea nitrogen/Creatinine [Mass ratio] 9.2 mg/mg Low 10-20 [facility] Basophil percentageOrdered B y: Anurag Irene on 11-25-2024 Basophils/100 WBC (Bld) 0.4 % 0-1 [facility] Bilirubin, totalOrdered By: Anurag Irene on 11-25-2024 Bilirubin [Mass/Vol] 1.07 mg/dL 0.00-1.30 [facility] Carbon dioxide, total [Moles /volume] in Central venous bloodOrdered By: Anurag Irene on 11-25-2024 CO2 [Moles/Vol] 19.3 mmol/L Low 21.0-32.0 [facility] Chloride assayOrdered By: Francois Irene on 11-25-2024 Chloride [Moles/Vol] 108 mmol/L 98-108 [facility] Eosinophil percentageOrdered By: Anurag Irene on 11-25-2024 Eosinophils/100 WBC (Bld) 4.2 % 0-5 [facility] Erythrocyte distribution wid th ratioOrdered By: Anurag Irene on 11-25-2024 Erythrocyte distribution width (RBC) [Ratio] 15.8 % High 11.6-14.6 [facility] Erythrocyte distribution wid th standard deviationOrdered By: Anurag Irene on 11-25-2024 Erythrocyte distribution width (RBC) [Ratio] 52.9 fl High 35.1-43.9 [facility] Glomerular filtration rate ( GFR) estimation/1.73 sq m using serum, plasma, or whole bOrdered By: Anurag Irene on 11-25-2024 GFR/1.73 sq M.predicted among non-blacks MDRD (S/P/Bld) [Vol rate/Area] 100 mL/min/{1.73_m2} >60 [facility] Glucose measurement at [facility] deOrdered By: Anurag Irene on 11-25-2024 Glucose [Mass/Vol] 222 mg/dL High 74-106 [facility] Hematocrit Auto (Bld) [Volum e fraction]Ordered By: Anurag Irene on 11-25-2024 Hematocrit (Bld) [Volume fraction] 21.5 % Low 40-54 [facility] Hemoglobin measurementOrdere d By: Anurag Irene on 11-25-2024 Hemoglobin (Bld) [Mass/Vol] 7.0 g/dL Low 13.0-16.5 [facility] Immature granulocytes/100 WB C Auto (Bld)Ordered By: Anurag Irene on 11-25-2024 Immature granulocytes/100 WBC (Bld) 0.400 % 0.0-0.9 [facility] MCV (mean corpuscular volume ) determinationOrdered By: Anurag Irene on 11-25-2024 MCV (RBC) [Entitic vol] 93.1 fL 80-94 [facility] Mean corpuscular hemoglobin (MCH) determinationOrdered By: Anurga Irene on 11-25-2024 MCH (RBC) [Entitic mass] 30.3 pg 27.0-32.0 [facility] Monocyte percentageOrdered B y: Anurag Irene on 11-25-2024 Monocytes/100 WBC (Bld) 12.7 % High 0-10 [facility] Neutrophil percentageOrdered By: Anurag Irene on 11-25-2024 Neutrophils/100 WBC (Bld) 65.6 % 47-70 [facility] No Panel InformationOrdered By: Anurag Irene on 11-25-2024 60 U/L High <38 [facility] Platelet countOrdered By: Francois Irene on 11-25-2024 Platelets (Bld) [#/Vol] 82 10*3/uL Low 150-450 [facility] Potassium measurement (mass/ volume)Ordered By: Anurag Irene on 11-25-2024 Potassium (Unsp spec) [Mass/Vol] 4.2 mmol/L 3.3-5.1 [facility] RBC Auto (Bld) [#/Vol]Ordere d By: Anurag Irene on 11-25-2024 RBC (Bld) [#/Vol] 2.31 10*6/uL Low 4.6-6.2 [facility] Serum creatinine measurement (mass/volume)Ordered By: Anurag Irene on 11-25-2024 Creatinine [Mass/Vol] 0.86 mg/dL 0.70-1.20 [facility] Serum globulin measurementOr dered By: Anurag Irene on 11-25-2024 Globulin (S) [Mass/Vol] 2.2 g/dL 2.2-4.2 [facility] Serum glucose measurement (m ass/volume)Ordered By: Anurag Irene on 11-25-2024 Glucose [Mass/Vol] 179 mg/dL High 70-99 [facility] Serum or plasma alanine thomas otransferase (ALT) measurementOrdered By: Anurag Irene on 11-25-2024 ALT [Catalytic activity/Vol] 41 U/L <47 [facility] Serum or plasma albumin roosevelt urement (mass/volume)Ordered By: Anurag Irene on 11-25-2024 Albumin [Mass/Vol] 2.7 g/dL Low 3.5-5.0 [facility] Serum or plasma albumin/glob ulin mass ratioOrdered By: Anurag Irene on 11-25-2024 Albumin/Globulin [Mass ratio] 1.2 {ratio} 0.9-2.4 [facility] Serum or plasma alkaline kendrick sphatase measurementOrdered By: Anurag Irene on 11-25-2024 ALP [Catalytic activity/Vol] 168 U/L High 40-129 [facility] Serum or plasma calcium roosevelt urement (mass/volume)Ordered By: Anurag Irene on 11-25-2024 Calcium [Mass/Vol] 8.3 mg/dL 7.6-11.0 [facility] Serum or plasma urea nitroge n measurement (mass/volume)Ordered By: Anurag Irene on 11-25-2024 Urea nitrogen [Mass/Vol] 8 mg/dL 4-19 [facility] Sodium levelOrdered By: Marni Irene on 11-25-2024 Sodium [Moles/Vol] 135 mmol/L 133-145 [facility] Total proteinOrdered By: [place] Irene on 11-25-2024 Protein [Mass/Vol] 4.9 g/dL Low 5.9-8.4 [facility] White blood cell (WBC) count Ordered By: Anurag Irene on 11-25-2024 WBC (Bld) [#/Vol] 5.5 10*3/uL 4.4-11.0 [facility] Blood manual differential co mment interpretation (narrative result)Ordered By: Anurag Irene on 11-24-2024 Manual differential comment Marco Antonio (Bld) [Interp] SCANNED [facility] Platelet estimateOrdered By: Anurag Irene on 11-24-2024 Platelets LM Ql (Bld) MOD DEC ADEQ [facility] Prothrombin timeOrdered By: Anurag Irene on 11-24-2024 PT Coag (PPP) [Time] 22.6 s High 11.7-14.9 [facility] Bilirubin directOrdered By: Anurag Irene on 11-22-2024 Bilirubin.direct [Mass/Vol] 0.73 mg/dL High 0.00-0.30 [facility] ALP [Catalytic activity/Vol] Ordered By: Herberth Carlson on 11-21-2024 Serum or plasma alkaline phosphatase measurement 245 U/L High 40-129 [facility] ALT [Catalytic activity/Vol] Ordered By: Herberth Carlson on 11-21-2024 Serum or plasma alanine aminotransferase (ALT) measurement 61 U/L High <47 [facility] Absolute neutrophil countOrd ered By: Herberth Carlson on 11-21-2024 Absolute neutrophil count 6.5 X10^3/uL 2.0-7.7 [facility] Albumin [Mass/Vol]Ordered By : Herberth Carlson on 11-21-2024 Serum or plasma albumin measurement (mass/volume) 2.5 g/dL Low 3.5-5.0 [facility] Albumin/Globulin [Mass ratio ]Ordered By: Herberth Carlson on 11-21-2024 Serum or plasma albumin/globulin mass ratio 0.9 RATIO 0.9-2.4 [facility] Anion gap [Moles/Vol]Ordered By: Herberth Carlson on 11-21-2024 Anion gap in Serum or Plasma 11 5-15 [facility] BUN/creatinine ratioOrdered By: Herberth Carlson on 11-21-2024 BUN/creatinine ratio 19.1 RATIO 10-20 [facility] Bacteria LM.HPF (Urine sed) [#/Area]Ordered By: Herberth Carlson on 11-21-2024 Urine sediment bacteria count by microscopy (number/high power field) RARE /hpf None Seen [facility] Basophil percentageOrdered B y: Herberth Carlson on 11-21-2024 Basophil percentage 0.2 % 0-1 [facility] Bilirubin Test strip Ql (U)O rdered By: Herberth Carlson on 11-21-2024 Bilirubin Ql (U) Negative Negative [facility] Bilirubin, totalOrdered By: Herberth Carlson on 11-21-2024 Bilirubin, total 1.33 mg/dL High 0.00-1.30 [facility] Calcium [Mass/Vol]Ordered By : Herberth Carlson on 11-21-2024 Serum or plasma calcium measurement (mass/volume) 8.7 mg/dL 7.6-11.0 [facility] Carbon dioxide, total [Moles /volume] in Central venous bloodOrdered By: Herberth Carlson on 11-21-2024 Carbon dioxide, total [Moles/volume] in Central venous blood 17.5 mmol/L Low 21.0-32.0 [facility] Chloride assayOrdered By: Kaylyn Carlson on 11-21-2024 Chloride assay 103 mmol/L 98-108 [facility] Clarity (U)Ordered By: Ashish Carlson on 11-21-2024 Urine clarity Sl Cldy Clear [facility] Color (U)Ordered By: Herberth Carlson on 11-21-2024 Urine color determination Yellow Yellow [facility] Creatinine [Mass/Vol]Ordered By: Herberth Carlson on 11-21-2024 Serum creatinine measurement (mass/volume) 1.49 mg/dL High 0.70-1.20 [facility] Eosinophil percentageOrdered By: Herberth Carlson on 11-21-2024 Eosinophil percentage 7.2 % High 0-5 [facility] Erythrocyte distribution wid th (RBC) [Ratio]Ordered By: Herberth Carlson on 11-21-2024 Erythrocyte distribution width ratio 16.8 % High 11.6-14.6 [facility] Erythrocyte distribution width standard deviation 57.1 fl High 35.1-43.9 [facility] Estimation of creatinine [place] aranceOrdered By: Herberth Carlson on 11-21-2024 Estimation of creatinine clearance 64.65 ml/min 50-250 [facility] GFR/1.73 sq M.predicted niki g non-blacks MDRD (S/P/Bld) [Vol rate/Area]Ordered By: Herberth Carlson on 11-21-2024 Glomerular filtration rate (GFR) estimation/1.73 sq m using serum, plasma, or whole b 54 Low >60 [facility] Glucose [Mass/Vol]Ordered By : Herberth Carlson on 11-21-2024 Serum glucose measurement (mass/volume) 188 mg/dL High 70-99 [facility] Hematocrit Auto (Bld) [Volum e fraction]Ordered By: Herberth Carlson on 11-21-2024 Automated blood hematocrit (percentage) 24.6 % Low 40-54 [facility] Hemoglobin measurementOrdere d By: Herberth Carlson on 11-21-2024 Hemoglobin measurement 8.3 g/dL Low 13.0-16.5 [facility] Immature granulocytes/100 WB C Auto (Bld)Ordered By: Herberth Carlson on 11-21-2024 Automated immature granulocyte percentage 0.800 % 0.0-0.9 [facility] International normalized rat io (INR) calculationOrdered By: Herberth Carlson 11-21-2024 International normalized ratio (INR) calculation 2.6 [facility] Ketones Test strip Ql (U)Ord ered By: Herberth Carlson on 11-21-2024 Ketones Ql (U) Negative Negative [facility] Lactic acid measurementOrder ed By: Herberth Carlson 11-21-2024 Lactic acid measurement 2.7 mmol/L High 0.0-2.0 [facility] Leukocyte esterase Test stri p Ql (U)Ordered By: Herberth Carlson on 11-21-2024 Urine leukocyte esterase detection by dipstick 500 /ul High Negative [facility] Lymphocytes Auto (Unsp spec) [#/Vol]Ordered By: Herberth Carlson on 11-21-2024 Absolute lymphocyte count 1.33 X10^3/uL 0.83-4.51 [facility] Lymphocytes/100 WBC Auto (Un sp spec)Ordered By: Herberth Carlson on 11-21-2024 Automated lymphocyte count as percentage of total leukocytes 13.9 % Low 19-41 [facility] MCV (RBC) [Entitic vol]Order ed By: Herberth Carlson on 11-21-2024 MCV (mean corpuscular volume) determination 93.2 fL 80-94 [facility] Mean corpuscular hemoglobin (MCH) determinationOrdered By: Herberth Carlson on 11-21-2024 Mean corpuscular hemoglobin (MCH) determination 31.4 pg 27.0-32.0 [facility] Mean corpuscular hemoglobin concentration (MCHC) determinationOrdered By: Herberth Carlson on 11-21-2024 Mean corpuscular hemoglobin concentration (MCHC) determination 33.7 g/dL 32-36 [facility] Mean platelet volume determi nationOrdered By: Herberth Carlson on 11-21-2024 Mean platelet volume determination 11.6 fl 6.2-12.0 [facility] Monocyte percentageOrdered B y: Herberth Carlson on 11-21-2024 Monocyte percentage 9.2 % 0-10 [facility] Mucus LM Ql (Urine sed)Order ed By: Herberth Carlson on 11-21-2024 Mucus Ql (Urine sed) 0 SEEN /hpf [facility] Neutrophil percentageOrdered By: Herberth Carlson on 11-21-2024 Neutrophil percentage 68.7 % 47-70 [facility] Nitrite Test strip Ql (U)Ord ered By: Herberth Carlson on 11-21-2024 Nitrite Ql (U) Negative Negative [facility] No Panel InformationOrdered By: Herberth Carlson on 11-21-2024 112 U/L High <38 [facility] Nucleated red blood cell per centageOrdered By: Herberth Carlson on 11-21-2024 Nucleated red blood cell percentage 0 % 0-5 [facility] Platelet countOrdered By: Kaylyn Carlson on 11-21-2024 Platelet count 167 K/mm3 150-450 [facility] Potassium (Unsp spec) [Mass/ Vol]Ordered By: Herberth Calrson on 11-21-2024 Potassium measurement (mass/volume) 5.0 mmol/L 3.3-5.1 [facility] Protein Test strip Ql (U)Ord ered By: Herberth Carlson on 11-21-2024 Protein Ql (U) 500 mg/dl High Negative [facility] Urine protein assay by test strip, semi-quantitative 500 mg/dl High Negative [facility] Prothrombin timeOrdered By: Herberth Carlson on 11-21-2024 Prothrombin time 28.2 SECONDS High 11.7-14.9 [facility] RBC Auto (Bld) [#/Vol]Ordere d By: Herberth Carlson on 11-21-2024 Automated blood erythrocyte count 2.64 M/mm3 Low 4.6-6.2 [facility] Serum globulin measurementOr dered By: Herberth Carlson on 11-21-2024 Serum globulin measurement 2.7 g/dL 2.2-4.2 [facility] Sodium levelOrdered By: Norman Carlson on 11-21-2024 Sodium level 132 mmol/L Low 133-145 [facility] Specific gravity (U) [Rel de nsity]Ordered By: Herberth Carlson on 11-21-2024 Urine specific gravity measurement 1.015 1.002-1.030 [facility] Squamous epithelial cells de tection in urine sediment by light microscopyOrdered By: Herberth Carlson on 11-21-2024 Epithelial cells.squamous LM Ql (Urine sed) 0 SEEN /hpf 0-5 [facility] Squamous epithelial cells detection in urine sediment by light microscopy 0 SEEN /hpf [facility] Total proteinOrdered By: Digna Carlson on 11-21-2024 Total protein 5.2 g/dL Low 5.9-8.4 [facility] Urea nitrogen [Mass/Vol]Orde red By: Herberth Carlson on 11-21-2024 Serum or plasma urea nitrogen measurement (mass/volume) 28 mg/dL High 4-19 [facility] Urine blood detectionOrdered By: Herberth Carlson on 11-21-2024 Urine blood detection 250 /ul High Negative [facility] Urine clarityOrdered By: Digna Carlson on 11-21-2024 Clarity (U) Sl Cldy Clear [facility] Urine color determinationOrd ered By: Herberth Carlson on 11-21-2024 Color (U) Yellow Yellow [facility] Urine cultureOrdered By: Digna Carlson on 11-21-2024 Bacteria identified Cx Nom (U) 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 Abnormal [facility] Bacteria identified Cx Nom (U) GPC Poss Enterococcus sp Abnormal [facility] Bacteria identified Cx Nom (U) Positive Abnormal [facility] Urine glucose detectionOrder ed By: Herberth Carlson on 11-21-2024 Glucose Ql (U) Normal mg/dl Normal [facility] Urine glucose detection Normal mg/dl Normal [facility] Urine leukocyte esterase det ection by dipstickOrdered By: Herberth Carlson on 11-21-2024 Leukocyte esterase Test strip Ql (U) 500 /ul High Negative [facility] Urine pHOrdered By: Herberth Carlson on 11-21-2024 pH (U) 6.0 [pH] 5.0 - 8.0 [facility] Urine sediment bacteria coun t by microscopy (number/high power field)Ordered By: Herberth Carlson on 11-21-2024 Bacteria LM.HPF (Urine sed) [#/Area] RARE /hpf None Seen [facility] Urine specific gravity measu rementOrdered By: Herberth Carlson on 11-21-2024 Specific gravity (U) [Rel density] 1.015 1.002-1.030 [facility] Urine total bilirubin detect ion by test stripOrdered By: Herberth Carlson on 11-21-2024 Urine total bilirubin detection by test strip Negative Negative [facility] Urine urobilinogen measureme ntOrdered By: Herberth Carlson on 11-21-2024 Urobilinogen Ql (U) Normal mg/dl Normal [facility] Venous blood ammonia measure mentOrdered By: Herberth Carlson on 11-21-2024 Ammonia (P) [Moles/Vol] 17.9 umol/L [facility] Venous blood ammonia measurement 17.9 umol/L [facility] White blood cell (WBC) count Ordered By: Herberth Carlson on 11-21-2024 White blood cell (WBC) count 9.5 K/mm3 4.4-11.0 [facility] White blood cell countOrdere d By: Herberth Carlson on 11-21-2024 White blood cell count >100 SEEN /hpf 0-5 [facility] White blood cell count >100 SEEN /hpf 0-5 [facility] pH (U)Ordered By: Herberth henao on 11-21-2024 Urine pH 6.0 5.0 - 8.0 [facility] Bacteria Ur Culton Bacteria identified Cx Nom (U) CULTURE, URINE: Mixed microbiota, including predominantly: ORGANISM ID: 1 >=100,000 CFU/ml Mary glabrata No susceptibility testing done. Normal [facility] Comment on above: Performed By: #### 6 30-4 ####[facility] LABCLIA [id number] [place] [address] [place] Bacteria identified Cx Nom (U) Normal [facility] Comment on above: Performed By: #### 2 4356-8, 630-4 ####[facility] LABCLIA [id number] [place] [address] [place] Basic metabolic 2000 panelon 11-18-2024 Anion gap [Moles/Vol] 8 mmol/L Normal 8-15 [facility] Comment on above: Order Comment: Speci men Type: BLOOD SPECIMENOrdering Facility: [facility] Address: [address] [place] [address] Performed By: #### 2 4321-2, 10311-8, 2777-1 ####[facility] LABCLIA [id number] [place] [id number] [place] Calcium [Mass/Vol] 8.3 mg/dL Low 8.5-10.2 [facility] Comment on above: Order Comment: Speci men Type: BLOOD SPECIMENOrdering Facility: [facility] Address: [address] [place] [address] Performed By: #### 2 4321-2, 21144-3, 2777- ####[facility] LABCLIA [id number] [address] [address] [place] Chloride [Moles/Vol] 102 mmol/L Normal 98-107 [facility] Comment on above: Order Comment: Speci men Type: BLOOD SPECIMENOrdering Facility: [facility] Address: [address] [place], [place] [address] Performed By: #### 2 4321-2, 82758-7, 27702-01 ####[facility] LABCLIA [id number] [place] [id number] [place] CO2 [Moles/Vol] 19 mmol/L Low 22-30 [facility] Comment on above: Order Comment: Speci men Type: BLOOD SPECIMENOrdering Facility: [facility] Address: [address] [place], [place] [address] Performed By: #### 2 4321-2, 99864-4, 2776-08 ####[facility] LABCLIA [id number] [place] [id number] [place] Creatinine [Mass/Vol] 0.95 mg/dL Normal 0.73-1.22 [facility] Comment on above: Order Comment: Speci men Type: BLOOD SPECIMENOrdering Facility: [facility] Address: [address] [place], [place] [address] Performed By: #### 2 4321-2, 11545-8, 27702-01 ####[facility] LABCLIA [id number] [address] [address] [place] Creatinine and Glomerular filtration rate.predicted panel (S/P/Bld) 93 mL/min/1.73m??? Normal >=60 [facility] Comment on above: Order Comment: Speci men Type: BLOOD SPECIMENOrdering Facility: [facility] Address: [address] [place] [address] Result Comment: Patric mated Glomerular Filtration Rate [...] actual GFR. Performed By: #### 2 4321-2, 16612-2, 2776- ####[facility] LABIA [id number] [place] [address] [place] Glucose [Mass/Vol] 248 mg/dL High 74-99 [facility] Comment on above: Order Comment: Ezekiel ramirez Type: BLOOD SPECIMENOrdering Facility: [facility] Address: [address] [place] [address] Result Comment: The [place] [employer] (ADA) provides guidance for cutoff [...] Standards of Medical Care in Diabetes 2016, [place] [employer]. Diabetes Care. 2016.39(Suppl 1). Performed By: #### 2 4321-2, 81799-6, 2776-08 ####[facility] LABIA [id number] [place] [id number] [place] Potassium [Moles/Vol] 4.4 mmol/L Normal 3.7-5.1 [facility] Comment on above: Order Comment: Ezekiel ramirez Type: BLOOD SPECIMENOrdering Facility: [facility] Address: [address] [place] [address] Performed By: #### 2 4321-2, 67940-8, 2777-1 ####[facility] LABIA [id number] [place] [id number] [place] Sodium [Moles/Vol] 129 mmol/L Low 136-144 [facility] Comment on above: Order Comment: Speci men Type: BLOOD SPECIMENOrdering Facility: [facility] Address: [address] [place] [address] Performed By: #### 2 4321-2, 31286-1, 2777-1 ####[facility] LABIA [id number] [place] [address] [place] Urea nitrogen [Mass/Vol] 16 mg/dL Normal 9-24 [facility] Comment on above: Order Comment: Speci men Type: BLOOD SPECIMENOrdering Facility: [facility] Address: [address] [place] [address] Performed By: #### 2 4321-2, 35967-6, 2777-1 ####[facility] [id number] [place] [id number] [place] CASE MANAGEMon 11-18-2024 CASE MANAGEM Normal [facility] CBC W Auto Differential pane l (Bld)on 11-18-2024 Basophils (Bld) [#/Vol] 10*3/uL Normal <0.11 [facility] Comment on above: Order Comment: Speci men Type: BLOOD SPECIMENOrdering Facility: [facility] Address: [address] [place] [address] Performed By: #### 5 7021-8 ####[facility] LABIA [id number] [place] [id number] [place] Basophils/100 WBC (Bld) 0.0 % Normal [facility] Comment on above: Order Comment: Speci men Type: BLOOD SPECIMENOrdering Facility: [facility] Address: [address] [place] [address] Performed By: #### 5 7021-8 ####[facility] LABCLIA [id number] [place] [address] [place] Differential cell count method Nom (Bld) Auto Normal [facility] Comment on above: Order Comment: Speci men Type: BLOOD SPECIMENOrdering Facility: [facility] Address: [address] [place] [address] Performed By: #### 5 7021-8 ####[facility] LABCLIA [id number] [place] [address] [place] Eosinophils (Bld) [#/Vol] 10*3/uL Normal <0.46 [facility] Comment on above: Order Comment: Speci men Type: BLOOD SPECIMENOrdering Facility: [facility] Address: [address] [place] [address] Performed By: #### 5 7021-8 ####[facility] LABCLIA [id number] [place] [address] [place] Eosinophils/100 WBC (Bld) 0.1 % Normal [facility] Comment on above: Order Comment: Speci men Type: BLOOD SPECIMENOrdering Facility: [facility] Address: [address] [place] [address] Performed By: #### 5 7021-8 ####[facility] LABCLIA [id number] [place] [address] [place] Erythrocyte distribution width (RBC) [Ratio] 16.7 % High 11.5-15.0 [facility] Comment on above: Order Comment: Speci men Type: BLOOD SPECIMENOrdering Facility: [facility] Address: [address] [place] [address] Performed By: #### 5 7021-8 ####[facility] LABCLIA [id number] [place] [address] [place] Hematocrit (Bld) [Volume fraction] 21.5 % Low 39.0-51.0 [facility] Comment on above: Order Comment: Speci men Type: BLOOD SPECIMENOrdering Facility: [facility] Address: [address] [place] [address] Performed By: #### 5 7021-8 ####[facility] LABCLIA [id number] [place] [address] [place] Hemoglobin (Bld) [Mass/Vol] 7.2 g/dL Low 13.0-17.0 [facility] Comment on above: Order Comment: Speci men Type: BLOOD SPECIMENOrdering Facility: [facility] Address: [address] [place] [address] Performed By: #### 5 7021-8 ####[facility] LABCLIA [id number] [place] [address] [place] Immature granulocytes (Bld) [#/Vol] 0.06 10*3/uL Normal <0.10 [facility] Comment on above: Order Comment: Speci men Type: BLOOD SPECIMENOrdering Facility: [facility] Address: [address] [place] [address] Performed By: #### 5 7021-8 ####[facility] LABCLIA [id number] [place] [address] [place] Immature granulocytes/100 WBC (Bld) 0.7 % Normal [facility] Comment on above: Order Comment: Speci men Type: BLOOD SPECIMENOrdering Facility: [facility] Address: [address] [place] [address] Performed By: #### 5 7021-8 ####[facility] LABCLIA [id number] [place] [address] [place] Lymphocytes (Bld) [#/Vol] 0.61 10*3/uL Low 1.00-4.00 [facility] Comment on above: Order Comment: Speci men Type: BLOOD SPECIMENOrdering Facility: [facility] Address: [address] [place] [address] Performed By: #### 5 7021-8 ####[facility] LABIA [id number] [place] [address] [place] Lymphocytes/100 WBC (Bld) 7.3 % Normal [facility] Comment on above: Order Comment: Speci men Type: BLOOD SPECIMENOrdering Facility: [facility] Address: [address] [place] [address] Performed By: #### 5 7021-8 ####[facility] LABIA [id number] [place] [address] [place] MCH (RBC) [Entitic mass] 30.9 pg Normal 26.0-34.0 [facility] Comment on above: Order Comment: Speci men Type: BLOOD SPECIMENOrdering Facility: [facility] Address: [address] [place] [address] Performed By: #### 5 7021-8 ####[facility] [id number] [place] [address] [place] MCHC (RBC) [Mass/Vol] 33.5 g/dL Normal 30.5-36.0 [facility] Comment on above: Order Comment: Speci men Type: BLOOD SPECIMENOrdering Facility: [facility] Address: [address] [place] [address] Performed By: #### 5 7021-8 ####[facility] LABIA [id number] [place] [address] [place] MCV (RBC) [Entitic vol] 92.3 fL Normal 80.0-100.0 C [facility] Comment on above: Order Comment: Speci men Type: BLOOD SPECIMENOrdering Facility: [facility] Address: [address] [place] [address] Performed By: #### 5 7021-8 ####[facility] LABIA [id number] [place] [address] [place] Monocytes (Bld) [#/Vol] 0.72 10*3/uL Normal <0.87 [facility] Comment on above: Order Comment: Speci men Type: BLOOD SPECIMENOrdering Facility: [facility] Address: [address] [place] [address] Performed By: #### 5 7021-8 ####[facility] LABCLIA [id number] [facility] [address] [place] Monocytes/100 WBC (Bld) 8.7 % Normal [facility] Comment on above: Order Comment: Speci men Type: BLOOD SPECIMENOrdering Facility: [facility] Address: [address] [place] [address] Performed By: #### 5 7021-8 ####[facility] LABCLIA [id number] [place] [address] [place] Neutrophils (Bld) [#/Vol] 6.92 10*3/uL Normal 1.45-7.50 [facility] Comment on above: Order Comment: Speci men Type: BLOOD SPECIMENOrdering Facility: [facility] Address: [address] [place] [address] Performed By: #### 5 7021-8 ####[facility] LABCLIA [id number] [facility] [place] [id number] [place] Neutrophils/100 WBC (Bld) 83.2 % Normal [facility] Comment on above: Order Comment: Speci men Type: BLOOD SPECIMENOrdering Facility: [facility] Address: [address] [place] [address] Performed By: #### 5 7021-8 ####[facility] LABCLIA [id number] [place] [id number] [place] Nucleated RBC (Bld) [#/Vol] 10*3/uL Normal <0.01 [facility] Comment on above: Order Comment: Speci men Type: BLOOD SPECIMENOrdering Facility: [facility] Address: [address] [place] [address] Performed By: #### 5 7021-8 ####[facility] LABIA [id number] [place] [address] [place] Nucleated RBC/100 WBC (Bld) [Ratio] 0.0 /100 WBC Normal [facility] Comment on above: Order Comment: Speci men Type: BLOOD SPECIMENOrdering Facility: [facility] Address: [address] [place] [address] Performed By: #### 5 7021-8 ####[facility] LABIA [id number] [place] [address] [place] Platelet mean volume (Bld) [Entitic vol] 12.1 fL Normal 9.0-12.7 [facility] Comment on above: Order Comment: Speci men Type: BLOOD SPECIMENOrdering Facility: [facility] Address: [address] [place] [address] Performed By: #### 5 7021-8 ####[facility] LABIA [id number] [place] [address] [place] Platelets (Bld) [#/Vol] 76 10*3/uL Low 150-400 C [facility] Comment on above: Order Comment: Speci men Type: BLOOD SPECIMENOrdering Facility: [facility] Address: [address] [place] [address] Result Comment: No c lot detected. Performed By: #### 5 7021-8 ####[facility] LABIA [id number] [place] [address] [place] RBC (Bld) [#/Vol] 2.33 10*6/uL Low 4.20-6.00 [facility] Comment on above: Order Comment: Speci men Type: BLOOD SPECIMENOrdering Facility: [facility] Address: [address] [place] [address] Performed By: #### 5 7021-8 ####[facility] LABCLIA [id number] [place] [address] [place] WBC (Bld) [#/Vol] 8.32 10*3/uL Normal 3.70-11.00 [facility] Comment on above: Order Comment: Speci men Type: BLOOD SPECIMENOrdering Facility: [facility] Address: [address] [place] [address] Performed By: #### 5 7021-8 ####[facility] LABCLIA [id number] [place] [address] [place] CNCOon 11-18-2024 CNCO Letter Text Normal [facility] CNDSon 11-18-2024 CNDS Normal [facility] [facility] CNPNon 11-18-2024 CNPN Normal [facility] Fibrinogen PPP-mCncon 2024 Fibrinogen Coag (PPP) [Mass/Vol] 104 mg/dL Low 200-400 [facility] Comment on above: Order Comment: Speci men Type: BLOOD SPECIMENOrdering Facility: [facility] Address: [address] [place] [address] Performed By: #### 3 255-7, 28570-4 ####[facility] LABIA [id number] [place] [address] [place] Hepatic function 2000 panelo n 11-18-2024 Albumin [Mass/Vol] 2.6 g/dL Low 3.9-4.9 [facility] Comment on above: Order Comment: Speci men Type: BLOOD SPECIMENOrdering Facility: [facility] Address: [address] [place] [address] Performed By: #### 2 4321-2, 05323-0, 2777-1 ####[facility] LABCLIA [id number] [place] [address] [place] ALP [Catalytic activity/Vol] 245 U/L High 38-113 [facility] Comment on above: Order Comment: Speci men Type: BLOOD SPECIMENOrdering Facility: [facility] Address: [address] [place], [place] [address] Performed By: #### 2 4321-2, 85574-8, 2776- ####[facility] LABCLIA [id number] [place] [id number] [place] ALT [Catalytic activity/Vol] 31 U/L Normal 10-54 [facility] Comment on above: Order Comment: Speci men Type: BLOOD SPECIMENOrdering Facility: [facility] Address: [address] [place] [address] Performed By: #### 2 4321-2, 65913-9, 2776- ####[facility] LABCLIA [id number] [place] [address] [place] AST [Catalytic activity/Vol] 52 U/L High 14-40 [facility] Comment on above: Order Comment: Speci men Type: BLOOD SPECIMENOrdering Facility: [facility] Address: [address] [place] [address] Performed By: #### 2 4321-2, 22665-4, 2776-08 ####[facility] LABIA [id number] [place] [address] [place] Bilirubin [Mass/Vol] 1.2 mg/dL Normal 0.2-1.3 [facility] Comment on above: Order Comment: Speci men Type: BLOOD SPECIMENOrdering Facility: [facility] Address: [address] [place], [place] [address] Performed By: #### 2 4321-2, 15072-8, 2776-08 ####[facility] LABIA [id number] [place] [id number] [place] Bilirubin.conjugated [Mass/Vol] 0.7 mg/dL High <0.3 [facility] Comment on above: Order Comment: Speci men Type: BLOOD SPECIMENOrdering Facility: [facility] Address: [address] [place], [place] [address] Performed By: #### 2 4321-2, 31069-0, 2777-1 ####[facility] LABJAMIE [id number] [place] [id number] [place] Protein [Mass/Vol] 5.0 g/dL Low 6.3-8.0 [facility] Comment on above: Order Comment: Ezekiel ramirez Type: BLOOD SPECIMENOrdering Facility: [facility] Address: [address] [place] [address] Performed By: #### 2 4321-2, 47663-8, 2777-1 ####[facility] [id number] [place] [address] [place] NURSING PROGon 11-18-2024 NURSING PROG Normal [facility] PT panel Coag (PPP)on 2024 INR Coag (PPP) [Relative time] 2.0 {INR} High 0.9-1.3 [facility] Comment on above: Order Comment: Ezekiel ramirez Type: BLOOD SPECIMENOrdering Facility: [facility] Address: [address] [place] [address] Result Comment: Sarah min K Antagonist (VKA) Therapeutic Range: INR 2 to 3 (Target INR of 2.5)Note: For patients treated with VKA drugs, such as warfarin, the [place] [employer] 2012 Guideline recommends [...] al. Chest 2012, 141:7S-47SNishbethel RA, et al. [facility] 2017, 70: 252-289 Performed By: #### 3 255-7, 10950-4 ####[facility] LABCLIA [id number] [place] [address] [place] PT Coag (PPP) [Time] 20.9 s High 9.7-13.0 [facility] Comment on above: Order Comment: Speci men Type: BLOOD SPECIMENOrdering Facility: [facility] Address: [address] [place] [address] Performed By: #### 3 255-7, 56311-0 ####[facility] LABCLIA [id number] [place] [address] [place] Phosphate SerPl-mCncon 11-18 Phosphate [Mass/Vol] 2.4 mg/dL Low 2.7-4.8 [facility] Comment on above: Order Comment: Speci men Type: BLOOD SPECIMENOrdering Facility: [facility] Address: [address] [place] [address] Performed By: #### 2 4321-2, 36609-6, 2777-1 ####[facility] LABIA [id number] [address] [place] TYPE + SCREENon 11-18-2024 ABO O Normal [facility] Comment on above: Order Comment: Speci men Type: BLOOD SPECIMENOrdering Facility: [facility] Address: [address] [place] [address] Performed By: #### T SCR ####[facility] BLOOD BANKIA [id number] [place] [address] [place] Rh Nom (Bld) Positive Normal [facility] Comment on above: Order Comment: Speci men Type: BLOOD SPECIMENOrdering Facility: [facility] Address: [address] [place] [address] Performed By: #### T SCR ####[facility] BLOOD BANKIA [id number] [place] [address] [place] TYPE AND SCREEN EXPIRATION 11/21/2024 23:59 Normal [facility] Comment on above: Order Comment: Speci men Type: BLOOD SPECIMENOrdering Facility: [facility] Address: [address] [place] [address] Performed By: #### T SCR ####[facility] BLOOD BANKIA [id number] [place] [address] [place] Urinalysis complete panel (U )on 11-18-2024 BACTERIA UL 1671.0 uL High Negative [facility] Comment on above: Order Comment: Speci men Type: URINE SPECIMENOrdering Facility: [facility] Address: [address] [place] [address] Performed By: #### 2 4356-8, 630-4 ####[facility] LABCLIA [id number] [place] [address] [place] Bilirubin Ql (U) 2+ Abnormal Negative [facility] Comment on above: Order Comment: Speci men Type: URINE SPECIMENOrdering Facility: [facility] Address: [address] [place] [address] Result Comment: Sugg est correlation with clinical findings and serum bilirubin if clinically indicated. Performed By: #### 2 4356-8, 630-4 ####[facility] LABCLIA [id number] [place] [address] [place] CALCIUM OXALATE CRYSTALS (UA) Few Abnormal None Seen [facility] Comment on above: Order Comment: Speci men Type: URINE SPECIMENOrdering Facility: [facility] Address: [address] [place] [address] Performed By: #### 2 4356-8, 630-4 ####[facility] LABCLIA [id number] [place] [address] [place] Clarity (Unsp spec) Turbid Abnormal [facility] Comment on above: Order Comment: Speci men Type: URINE SPECIMENOrdering Facility: [facility] Address: [address] [place] [address] Performed By: #### 2 4356-8, 630-4 ####[facility] LABCLIA [id number] [place] [address] [place] Color (U) Red Abnormal Yellow [facility] Comment on above: Order Comment: Speci men Type: URINE SPECIMENOrdering Facility: [facility] Address: [address] [place] [address] Performed By: #### 2 6, 630-4 ####[facility] LABCLIA [id number] [place] [address] [place] Epithelial cells LM.HPF (Urine sed) [#/Area] None Seen Normal [facility] Comment on above: Order Comment: Speci men Type: URINE SPECIMENOrdering Facility: [facility] Address: [address] [place] [address] Performed By: #### 2 4356, 6304 ####[facility] LABCLIA [id number] [address] Glucose Test strip (U) [Mass/Vol] Negative Normal Negative [facility] Comment on above: Order Comment: Speci men Type: URINE SPECIMENOrdering Facility: [facility] Address: [address] [place] [address] Performed By: #### 2 6, -4 ####[facility] LABCLIA [id number] [place] [address] [place] Hemoglobin Ql (U) 2+ Abnormal Negative [facility] Comment on above: Order Comment: Speci men Type: URINE SPECIMENOrdering Facility: [facility] Address: [address] [place] [address] Performed By: #### 2 4356-8, 630-4 ####[facility] LABCLIA [id number] [place] [id number] [place] Hyaline casts (Urine sed) [#/Area] 0 /[LPF] Normal 0 /LPF [facility] Comment on above: Order Comment: Speci men Type: URINE SPECIMENOrdering Facility: [facility] Address: [address] [place] [address] Performed By: #### 2 4356-8, 630-4 ####[facility] LABCLIA [id number] [facility] [place] [id number], [facility] [place] Ketones Ql (U) Negative Normal Negative [facility] Comment on above: Order Comment: Speci men Type: URINE SPECIMENOrdering Facility: [facility] Address: [address] [place] [address] Performed By: #### 2 4356-8, 630-4 ####[facility] LABCLIA [id number] [address], [place] [address] [place] Leukocyte esterase Test strip Ql (U) 3+ Abnormal Negative [facility] Comment on above: Order Comment: Speci men Type: URINE SPECIMENOrdering Facility: [facility] Address: [address] [place] [address] Performed By: #### 2 4356-8, 293-4 ####[facility] LABCLIA [id number] [facility] [address], [place] [address] [place] Nitrite Ql (U) Negative Normal Negative [facility] Comment on above: Order Comment: Speci men Type: URINE SPECIMENOrdering Facility: [facility] Address: [address] [place] [address] Result Comment: Resu lt rechecked. Performed By: #### 2 4356-8, 630-4 ####[facility] LABCLIA [id number] [address], [facility] [place] pH (U) 5.0 [pH] Normal <8.5 [facility] Comment on above: Order Comment: Speci men Type: URINE SPECIMENOrdering Facility: [facility] Address: [address] [place] [address] Performed By: #### 2 4356-8, 630-4 ####[facility] LABIA [id number] [place] [address] [place] Protein (U) [Mass/Vol] 2+ Abnormal Negative [facility] Comment on above: Order Comment: Speci men Type: URINE SPECIMENOrdering Facility: [facility] Address: [address] [place] [address] Performed By: #### 2 4356-8, 630-4 ####[facility] LABIA [id number] [place] [address] [place] RBC LM.HPF (Urine sed) [#/Area] /[HPF] Abnormal 0-2 /HPF [facility] Comment on above: Order Comment: Speci men Type: URINE SPECIMENOrdering Facility: [facility] Address: [address] [place] [address] Performed By: #### 2 4356-8, 630-4 ####[facility] LABIA [id number] [place] [address] [place] Specific gravity (U) [Rel density] 1.021 Normal 1.005-1.030 [facility] Comment on above: Order Comment: Speci men Type: URINE SPECIMENOrdering Facility: [facility] Address: [address] [place] [address] Performed By: #### 2 4356-8, 630-4 ####[facility] LABIA [id number] [place] [address] [place] Urobilinogen Ql (U) 0.2 EU/dL Normal 0.2-1.0 EU/dL [facility] Comment on above: Order Comment: Speci men Type: URINE SPECIMENOrdering Facility: [facility] Address: [address] [place] [address] Performed By: #### 2 4356-8, 630-4 ####[facility] LABCLIA [id number] [place] [address] [place] WBC LM.HPF (Urine sed) [#/Area] /[HPF] Abnormal 0-5 /HPF [facility] Comment on above: Order Comment: Speci men Type: URINE SPECIMENOrdering Facility: [facility] Address: [address] [place] [address] Performed By: #### 2 4356-8, 630-4 ####[facility] LABCLIA [id number] [place] [address] [place] Yeast.budding LM.HPF (Urine sed) [#/Area] Present Abnormal None Seen [facility] Comment on above: Order Comment: Speci men Type: URINE SPECIMENOrdering Facility: [facility] Address: [address] [place] [address] Performed By: #### 2 4356-8, 630-4 ####[facility] LABIA [id number] [place] [address] [place] Basic metabolic 2000 panelon 11-17-2024 Anion gap [Moles/Vol] 10 mmol/L Normal 8-15 [facility] Comment on above: Order Comment: Speci men Type: BLOOD SPECIMENOrdering Facility: [facility] Address: [address] [place] [address] Performed By: #### 2 4321-2, 78005-6, 2777-1 ####[facility] LABIA [id number] [place] [address] [place] Calcium [Mass/Vol] 8.9 mg/dL Normal 8.5-10.2 [facility] Comment on above: Order Comment: Speci men Type: BLOOD SPECIMENOrdering Facility: [facility] Address: [address] [place] [address] Performed By: #### 2 4321-2, 10749-1, 2777-1 ####[facility] LABCLIA [id number] [place] [address] [place] Chloride [Moles/Vol] 105 mmol/L Normal 98-107 [facility] Comment on above: Order Comment: Speci men Type: BLOOD SPECIMENOrdering Facility: [facility] Address: [address] [place] [address] Performed By: #### 2 4321-2, 86705-2, 2777-1 ####[facility] LABIA [id number] [place] [id number] [place] CO2 [Moles/Vol] 17 mmol/L Low 22-30 [facility] Comment on above: Order Comment: Speci men Type: BLOOD SPECIMENOrdering Facility: [facility] Address: [address] [place] [address] Performed By: #### 2 4321-2, 29740-6, 2777-1 ####[facility] LABIA [id number] [place] [address] [place] Creatinine [Mass/Vol] 0.77 mg/dL Normal 0.73-1.22 [facility] Comment on above: Order Comment: Speci men Type: BLOOD SPECIMENOrdering Facility: [facility] Address: [address] [place] [address] Performed By: #### 2 4321-2, 36045-3, 2777-1 ####[facility] LABIA [id number] [place] [id number] [place] Creatinine and Glomerular filtration rate.predicted panel (S/P/Bld) 104 mL/min/1.73m??? Normal >=60 [facility] Comment on above: Order Comment: Speci men Type: BLOOD SPECIMENOrdering Facility: [facility] Address: [address] [place] [address] Result Comment: Patric mated Glomerular Filtration Rate [...] reflect actual GFR. Performed By: #### 2 1-2, 70830-5, 2776-08 ####[facility] LABCLIA [id number] [facility] [place] [id number] [place] [address] [place] Glucose [Mass/Vol] 291 mg/dL High 74-99 [facility] Comment on above: Order Comment: Ezekiel ramirez Type: BLOOD SPECIMENOrdering Facility: [facility] Address: [address] [place] [address] Result Comment: The [place] [employer] (ADA) provides guidance for cutoff [...] Standards of Medical Care in Diabetes 2016, [place] [employer]. Diabetes Care. 2016.39(Suppl 1). Performed By: #### 2 1-2, 25327-4, 2776-08 ####[facility] LABCLIA [id number] [facility] [id number] [place] [address] [place] Potassium [Moles/Vol] 4.5 mmol/L Normal 3.7-5.1 [facility] Comment on above: Order Comment: Ezekiel ramirez Type: BLOOD SPECIMENOrdering Facility: [facility] Address: [address] [place] [id number] Performed By: #### 2 4321-2, 94997-8, 2776-08 ####[facility] LABCLIA [id number] [address] [facility] [id number], [place] [address] [place] Sodium [Moles/Vol] 132 mmol/L Low 136-144 [facility] Comment on above: Order Comment: Speci men Type: BLOOD SPECIMENOrdering Facility: [facility] Address: [address] [place] [address] Performed By: #### 2 4321-2, 98471-4, 2777- ####[facility] LABCLIA [id number] [address] [place] [address] [place] Urea nitrogen [Mass/Vol] 9 mg/dL Normal 9-24 [facility] Comment on above: Order Comment: Speci men Type: BLOOD SPECIMENOrdering Facility: [facility] Address: [address] [place] [address] Performed By: #### 2 4321-2, 40518-0, 2777- ####[facility] LABCLIA [id number] [address] [address] [place] CASE MANAGEMon 11-17-2024 CASE MANAGEM Normal [facility] CBC W Auto Differential pane l (Bld)on 11-17-2024 Basophils (Bld) [#/Vol] 10*3/uL Normal <0.11 C [facility] Comment on above: Order Comment: Speci men Type: BLOOD SPECIMENOrdering Facility: [facility] Address: [address] [place] [address] Performed By: #### 5 7021-8 ####[facility] LABCLIA [id number] [place] [id number] [place] Basophils/100 WBC (Bld) 0.0 % Normal C [facility] Comment on above: Order Comment: Speci men Type: BLOOD SPECIMENOrdering Facility: [facility] Address: [address] [place] [address] Performed By: #### 5 7021-8 ####[facility] LABCLIA [id number] [facility] [address] [place] [address] [place] Differential cell count method Nom (Bld) Auto Normal [facility] Comment on above: Order Comment: Speci men Type: BLOOD SPECIMENOrdering Facility: [facility] Address: [address] [place] [address] Performed By: #### 5 7021-8 ####[facility] LABCLIA [id number] [place] [address] [place] Eosinophils (Bld) [#/Vol] 10*3/uL Normal <0.46 [facility] Comment on above: Order Comment: Speci men Type: BLOOD SPECIMENOrdering Facility: [facility] Address: [address] [place] [address] Performed By: #### 5 7021-8 ####[facility] LABCLIA [id number] [place] [address] [place] Eosinophils/100 WBC (Bld) 0.0 % Normal [facility] Comment on above: Order Comment: Speci men Type: BLOOD SPECIMENOrdering Facility: [facility] Address: [address] [place] [address] Performed By: #### 5 7021-8 ####[facility] LABCLIA [id number] [place] [address] [place] Erythrocyte distribution width (RBC) [Ratio] 16.9 % High 11.5-15.0 [facility] Comment on above: Order Comment: Speci men Type: BLOOD SPECIMENOrdering Facility: [facility] Address: [address] [place] [address] Performed By: #### 5 7021-8 ####[facility] LABCLIA [id number] [place] [address] [place] Hematocrit (Bld) [Volume fraction] 22.7 % Low 39.0-51.0 [facility] Comment on above: Order Comment: Speci men Type: BLOOD SPECIMENOrdering Facility: [facility] Address: [address] [place] [address] Performed By: #### 5 7021-8 ####[facility] LABCLIA [id number] [place] [address] [place] Hemoglobin (Bld) [Mass/Vol] 7.7 g/dL Low 13.0-17.0 [facility] Comment on above: Order Comment: Speci men Type: BLOOD SPECIMENOrdering Facility: [facility] Address: [address] [place] [address] Performed By: #### 5 7021-8 ####[facility] LABCLIA [id number] [place] [address] [place] Immature granulocytes (Bld) [#/Vol] 0.03 10*3/uL Normal <0.10 [facility] Comment on above: Order Comment: Speci men Type: BLOOD SPECIMENOrdering Facility: [facility] Address: [address] [place] [address] Performed By: #### 5 7021-8 ####[facility] LABCLIA [id number] [place] [address] [place] Immature granulocytes/100 WBC (Bld) 0.9 % Normal [facility] Comment on above: Order Comment: Speci men Type: BLOOD SPECIMENOrdering Facility: [facility] Address: [address] [place] [address] Performed By: #### 5 7021-8 ####[facility] LABCLIA [id number] [place] [address] [place] Lymphocytes (Bld) [#/Vol] 0.28 10*3/uL Low 1.00-4.00 [facility] Comment on above: Order Comment: Speci men Type: BLOOD SPECIMENOrdering Facility: [facility] Address: [address] [place] [address] Performed By: #### 5 7021-8 ####[facility] LABCLIA [id number] [place] [address] [place] Lymphocytes/100 WBC (Bld) 8.3 % Normal [facility] Comment on above: Order Comment: Speci men Type: BLOOD SPECIMENOrdering Facility: [facility] Address: [address] [place] [address] Performed By: #### 5 7021-8 ####[facility] [id number] [place] [address] [place] MCH (RBC) [Entitic mass] 31.7 pg Normal 26.0-34.0 [facility] Comment on above: Order Comment: Speci men Type: BLOOD SPECIMENOrdering Facility: [facility] Address: [address] [place] [address] Performed By: #### 5 7021-8 ####[facility] [id number] [place] [address] [place] MCHC (RBC) [Mass/Vol] 33.9 g/dL Normal 30.5-36.0 [facility] Comment on above: Order Comment: Speci men Type: BLOOD SPECIMENOrdering Facility: [facility] Address: [address] [place] [address] Performed By: #### 5 7021-8 ####[facility] [id number] [place] [address] [place] MCV (RBC) [Entitic vol] 93.4 fL Normal 80.0-100.0 C [facility] Comment on above: Order Comment: Speci men Type: BLOOD SPECIMENOrdering Facility: [facility] Address: [address] [place] [address] Performed By: #### 5 7021-8 ####[facility] [id number] [place] [address] [place] Monocytes (Bld) [#/Vol] 0.17 10*3/uL Normal <0.87 [facility] Comment on above: Order Comment: Speci men Type: BLOOD SPECIMENOrdering Facility: [facility] Address: [address] [place] [address] Performed By: #### 5 7021-8 ####[facility] LABCLIA [id number] [address] [address] [place] Monocytes/100 WBC (Bld) 5.0 % Normal [facility] Comment on above: Order Comment: Speci men Type: BLOOD SPECIMENOrdering Facility: [facility] Address: [address] [place] [address] Performed By: #### 5 7021-8 ####[facility] LABCLIA [id number] [address] [address] [place] Neutrophils (Bld) [#/Vol] 2.89 10*3/uL Normal 1.45-7.50 [facility] Comment on above: Order Comment: Speci men Type: BLOOD SPECIMENOrdering Facility: [facility] Address: [address] [place] [address] Performed By: #### 5 7021-8 ####[facility] LABCLIA [id number] [place] [id number] [place] Neutrophils/100 WBC (Bld) 85.8 % Normal [facility] Comment on above: Order Comment: Speci men Type: BLOOD SPECIMENOrdering Facility: [facility] Address: [address] [place] [address] Performed By: #### 5 7021-8 ####[facility] LABCLIA [id number] [place] [id number] [place] Nucleated RBC (Bld) [#/Vol] 10*3/uL Normal <0.01 [facility] Comment on above: Order Comment: Speci men Type: BLOOD SPECIMENOrdering Facility: [facility] Address: [address] [place] [address] Performed By: #### 5 7021-8 ####[facility] LABCLIA [id number] [address] [address] [place] Nucleated RBC/100 WBC (Bld) [Ratio] 0.0 /100 WBC Normal [facility] Comment on above: Order Comment: Speci men Type: BLOOD SPECIMENOrdering Facility: [facility] Address: [address] [place] [address] Performed By: #### 5 7021-8 ####[facility] LABIA [id number] [place] [address] [place] Platelet mean volume (Bld) [Entitic vol] 12.0 fL Normal 9.0-12.7 [facility] Comment on above: Order Comment: Speci men Type: BLOOD SPECIMENOrdering Facility: [facility] Address: [address] [place] [address] Performed By: #### 5 7021-8 ####[facility] LABIA [id number] [place] [address] [place] Platelets (Bld) [#/Vol] 57 10*3/uL Low 150-400 C [facility] Comment on above: Order Comment: Speci men Type: BLOOD SPECIMENOrdering Facility: [facility] Address: [address] [place] [address] Performed By: #### 5 7021-8 ####[facility] LABIA [id number] [place] [address] [place] RBC (Bld) [#/Vol] 2.43 10*6/uL Low 4.20-6.00 [facility] Comment on above: Order Comment: Speci men Type: BLOOD SPECIMENOrdering Facility: [facility] Address: [address] [place] [address] Performed By: #### 5 7021-8 ####[facility] LABIA [id number] [place] [address] [place] WBC (Bld) [#/Vol] 3.37 10*3/uL Low 3.70-11.00 [facility] Comment on above: Order Comment: Speci men Type: BLOOD SPECIMENOrdering Facility: [facility] Address: [address] [place] [address] Performed By: #### 5 7021-8 ####[facility] [id number] [place] [address] [place] CONSULT PROGon 11-17-2024 CONSULT PROG Normal [facility] Fact Xa PPP-aCncon Coagulation factor X activated act Coag Qn (PPP) <0.10 Normal <0.10 [facility] Comment on above: Order Comment: Speci men Type: BLOOD SPECIMENOrdering Facility: [facility] Address: [address] [place] [address] Result Comment: The recommended therapeutic range for treatment of venous and arterial thrombosis with intravenous unfractionated heparin is an anti Xa activity level of 0.3 to 0.7 IU/mL. In patients with concomitant therapy with thrombolytic agents and/or platelet glycoprotein IIb/IIIa antagonists, the recommended therapeutic range is an anti Xa activity level of 0.2 to 0.5 IU/mL. Performed By: #### 3 217-7 ####[facility] LABIA [id number] [place] [address] [place] Fibrinogen PPP-mCncon 2024 Fibrinogen Coag (PPP) [Mass/Vol] 114 mg/dL Low 200-400 [facility] Comment on above: Order Comment: Ezekiel ramirez Type: BLOOD SPECIMENOrdering Facility: [facility] Address: [address] [place] [address] Performed By: #### 3 255-7, 89448-2 ####[facility] LABIA [id number] [place] [phone] [place] Hepatic function 2000 panelo n 11-17-2024 Albumin [Mass/Vol] 2.7 g/dL Low 3.9-4.9 [facility] Comment on above: Order Comment: Meggani men Type: BLOOD SPECIMENOrdering Facility: [facility] Address: [address] [place] [address] Performed By: #### 2 4321-2, 88017-9, 2776- ####[facility] LABCLIA [id number] [address] [address] [place] ALP [Catalytic activity/Vol] 276 U/L High 38-113 [facility] Comment on above: Order Comment: Speci men Type: BLOOD SPECIMENOrdering Facility: [facility] Address: [address] [place] [address] Performed By: #### 2 4321-2, 43371-8, 2776- ####[facility] LABCLIA [id number] [place] [phone] [place] ALT [Catalytic activity/Vol] 35 U/L Normal 10-54 [facility] Comment on above: Order Comment: Speci men Type: BLOOD SPECIMENOrdering Facility: [facility] Address: [address] [place] [address] Performed By: #### 2 4321-2, 68013-2, 2776-08 ####[facility] LABCLIA [id number] [place] [phone] [place] AST [Catalytic activity/Vol] 80 U/L High 14-40 [facility] Comment on above: Order Comment: Speci men Type: BLOOD SPECIMENOrdering Facility: [facility] Address: [address] [place] [address] Performed By: #### 2 4321-2, 16395-3, 2776-08 ####[facility] LABCLIA [id number] [address] [address] [place] Bilirubin [Mass/Vol] 1.8 mg/dL High 0.2-1.3 [facility] Comment on above: Order Comment: Speci men Type: BLOOD SPECIMENOrdering Facility: [facility] Address: [address] [place] [address] Performed By: #### 2 4321-2, 73057-5, 277-1 ####[facility] LABCLIA [id number] [place] [phone] [place] Bilirubin.conjugated [Mass/Vol] 1.0 mg/dL High <0.3 [facility] Comment on above: Order Comment: Speci men Type: BLOOD SPECIMENOrdering Facility: [facility] Address: [address] [place] [address] Performed By: #### 2 4321-2, 26465-7, 2777-1 ####[facility] LABIA [id number] [place] [phone] [place] Protein [Mass/Vol] 5.2 g/dL Low 6.3-8.0 [facility] Comment on above: Order Comment: Speci men Type: BLOOD SPECIMENOrdering Facility: [facility] Address: [address] [place] [address] Performed By: #### 2 4321-2, 20888-9, 2777-1 ####[facility] LABIA [id number] [place] [phone] [place] NUTRITIONon 11-17-2024 NUTRITION Normal [facility] PSA/PROSTATE SPECIFIC ANTIGE N SCREENINGon 11-17-2024 Prostate specific Ag [Mass/Vol] 0.52 ng/mL Normal <2.60 [facility] Comment on above: Order Comment: Speci men Type: BLOOD SPECIMENOrdering Facility: [facility] Address: [address] [place] [address] Result Comment: Tota l PSA test methodology used is the Electrochemiluminescence Immunoassay by [employer]. Total PSA values by differing methodologies cannot be interchanged. Performed By: #### P SAS1 ####[facility] LABCLIA [id number] [place] [phone] [place] PT panel Coag (PPP)on 2024 INR Coag (PPP) [Relative time] 2.0 {INR} High 0.9-1.3 [facility] Comment on above: Order Comment: Speci men Type: BLOOD SPECIMENOrdering Facility: [facility] Address: [address] [place] [address] Result Comment: Sarah min K Antagonist (VKA) Therapeutic Range: INR 2 to 3 (Target INR of 2.5)Note: For patients treated with VKA drugs, such as warfarin, the [place] [employer] 2012 Guideline recommends [...] al. Chest 2012, 141:7S-47SNishbethel RA, et al. [facility] 2017, 70: 252-289 Performed By: #### 3 255-7, 94016-1 ####[facility] LABIA [id number] [place] [address] [place] PT Coag (PPP) [Time] 20.6 s High 9.7-13.0 [facility] Comment on above: Order Comment: Speci men Type: BLOOD SPECIMENOrdering Facility: [facility] Address: [address] [place] [address] Performed By: #### 3 255-7, 93343-4 ####[facility] LABIA [id number] [place] [phone] [place] PTT, ANTICOAGULANT THERAPYon 11-17-2024 aPTT Coag (PPP) [Time] 41.6 s High 23.0-32.4 [facility] Comment on above: Order Comment: Speci men Type: BLOOD SPECIMENOrdering Facility: [facility] Address: [address] [place] [address] Performed By: #### P TTAC ####[facility] LABIA [id number] [place] [phone] [place] Phosphate SerPl-ncon 11-17 Phosphate [Mass/Vol] 1.9 mg/dL Low 2.7-4.8 [facility] Comment on above: Order Comment: Speci men Type: BLOOD SPECIMENOrdering Facility: [facility] Address: [address] [place] [address] Performed By: #### 2 4321-2, 64936-3, 2777-1 ####[facility] LABIA [id number] [place] [address] [place] THERAPY NTon 11-17-2024 THERAPY NT Normal [facility] aPTT PPPon 11-17-2024 aPTT Coag (PPP) [Time] s High 23.0-32.4 [facility] Comment on above: Order Comment: Speci men Type: BLOOD SPECIMENOrdering Facility: [facility] Address: [address] [place] [address] Result Comment: Resu lt rechecked.Sample checked for clot. Performed By: #### 1 4979-9, PTTAC ####[facility] LABIA [id number] [place] [address] [place] ANES POSTPROC EVALon 11-16-2 025 ANES POSTPROC EVAL Normal [facility] ANES PRE-OPon 11-16-2024 ANES PRE-OP Normal [facility] Albumin Fld-ncon Albumin (Body fld) [Mass/Vol] 0.2 g/dL Normal See Comment [facility] Comment on above: Order Comment: Speci men Type: FLUID SPECIMENOrdering Facility: [facility] Address: [address] [place] [address] Result Comment: Body Fluid Albumin may be [...] document C49A. PAULETTE Diaz: Clinical Laboratory Standards [place]: 2007.2. Amy JACKSON. Serum to ascites albumin gradient. UpToDate. 2015. Accessed on November 15, 2015.This test was developed, and its performance characteristics determined by the [facility] Department of Pathology and Laboratory Medicine. It has not been cleared or approved by the FDA. The [facility] Department of Pathology and Laboratory Medicine is regulated under CLIA as qualified to perform high-complexity testing. This test is used for clinical purposes. It should not be regarded as investigational or for research. Performed By: #### 1 795-4, 2881-1, 1747-5 ####[facility] LABIA [id number] [place] [address] [place] Fluid Nom (Body fld) Ascites Fluid Normal C [facility] Comment on above: Order Comment: Speci men Type: FLUID SPECIMENOrdering Facility: [facility] Address: [address] [place] [address] Performed By: #### 1 795-4, 2881-1, 1747-5 ####[facility] [id number] [place] [address] [place] Amylase Fld-cCncon 5 Amylase (Body fld) [Catalytic activity/Vol] 17 U/L Normal See Comment [facility] Comment on above: Order Comment: Meggani james Type: FLUID SPECIMENOrdering Facility: [facility] Address: [address] [place] [address] Result Comment: PLEU RAL FLUIDS:Amylase measurement in [...] document C49-A. PAULETTE Diaz: Clinical Laboratory Standards [place]; 2007.3. Kelby CONCEPCION, John RC, Star DJ. Use of cyst fluid CEA, CA19-9, and amylase for evaluation of pancreatic lesions. Clinical Biochemistry. 2009;42:6015-3764.This test was developed, and its performance characteristics determined by the [facility] Department of Pathology and Laboratory Medicine. It has not been cleared or approved by the FDA. The [facility] Department of Pathology and Laboratory Medicine is regulated under CLIA as qualified to perform high-complexity testing. This test is used for clinical purposes. It should not be regarded as investigational or for research. Performed By: #### 1 795-4, 2881-1, 1747-5 ####[facility] LABCLIA [id number] [place] [address] [place] BODY FLUID CELL COUNTon - Clarity (Unsp spec) Clear Normal Clear [facility] Comment on above: Order Comment: Speci men Type: FLUID SPECIMENOrdering Facility: [facility] Address: [address] [place] [address] Performed By: #### C CBF, [id number] ####[facility] LABCLIA [id number] [place] [address] [place] Color (Body fld) Yellow Normal Yellow [facility] Comment on above: Order Comment: Speci men Type: FLUID SPECIMENOrdering Facility: [facility] Address: [facility] [place] [address] Performed By: #### C CBF, [id number] ####[facility] LABCLIA [id number] [facility] [address] [place] [address] [place] RBC Manual cnt (Body fld) [#/Vol] 3000 /uL High <2000 [facility] Comment on above: Order Comment: Speci men Type: FLUID SPECIMENOrdering Facility: [facility] Address: [address] [place] [address] Performed By: #### C CBF, [id number] ####[facility] LABCLIA [id number] [facility] [place] [address] [place] Specimen source Nom (Body fld) Ascites Fluid Normal [facility] Comment on above: Order Comment: Speci men Type: FLUID SPECIMENOrdering Facility: [facility] Address: [address] [place] [address] Performed By: #### C CBF, [id number] ####[facility] LABCLIA [id number] [place] [address] [place] WBC Manual cnt (Body fld) [#/Vol] 58 /uL Normal <1000 [facility] Comment on above: Order Comment: Speci men Type: FLUID SPECIMENOrdering Facility: [facility] Address: [address] [place] [address] Performed By: #### C CBF, [id number] ####[facility] LABCLIA [id number] [facility] [place] [id number] [place] Bacteria Fld Culton 11-17-19 25 Bacteria identified Cx Nom (Body fld) CULTURE, BODY FLD: No growth GRAM STAIN: No organisms seen Few Polymorphonuclear leukocytes Gram stain performed on cytospun specimen. Gram stain from primary specimen Normal [facility] Comment on above: Performed By: #### 6 35-3, 611-4 ####[facility] LABCLIA [id number] [address] [place] [address] [place] Bacteria Spec Anaerobe Culto n 11-16-2024 Bacteria identified Anaer cx Nom (Unsp spec) Negative Normal [facility] Comment on above: Performed By: #### 6 35-3, 611-4 ####[facility] LABCLIA [id number] [address] [place] [address] [place] Basic metabolic 2000 panelon 11-16-2024 Anion gap [Moles/Vol] 10 mmol/L Normal 8-15 [facility] Comment on above: Order Comment: Speci men Type: BLOOD SPECIMENOrdering Facility: [facility] Address: [address] [place] [address] Performed By: #### 2 4321-2, 97811-4, 2776-1 ####[facility] LABCLIA [id number] [address] [address] [place] Calcium [Mass/Vol] 8.4 mg/dL Low 8.5-10.2 [facility] Comment on above: Order Comment: Speci men Type: BLOOD SPECIMENOrdering Facility: [facility] Address: [address] [place], [place] [address] Performed By: #### 2 4321-2, 11585-4, 2776-1 ####[facility] LABCLIA [id number] [address] [place] [address] [place] Chloride [Moles/Vol] 102 mmol/L Normal 98-107 [facility] Comment on above: Order Comment: Speci men Type: BLOOD SPECIMENOrdering Facility: [facility] Address: [address] [place], [place] [address] Performed By: #### 2 4321-2, 50650-0, 2776-1 ####[facility] LABCLIA [id number] [address] [place] [address] [place] CO2 [Moles/Vol] 18 mmol/L Low 22-30 [facility] Comment on above: Order Comment: Speci men Type: BLOOD SPECIMENOrdering Facility: [facility] Address: [address] [place] [address] Performed By: #### 2 4321-2, 66537-4, 2776- ####[facility] LABCLIA [id number] [place] [id number] [place] Creatinine [Mass/Vol] 0.73 mg/dL Normal 0.73-1.22 [facility] Comment on above: Order Comment: Speci men Type: BLOOD SPECIMENOrdering Facility: [facility] Address: [address] [place] [address] Performed By: #### 2 4321-2, 44648-4, 2776-08 ####[facility] LABCLIA [id number] [place] [address] [place] Creatinine and Glomerular filtration rate.predicted panel (S/P/Bld) 105 mL/min/1.73m??? Normal >=60 [facility] Comment on above: Order Comment: Ezekiel ramirez Type: BLOOD SPECIMENOrdering Facility: [facility] Address: [address] [place] [address] Result Comment: Patric mated Glomerular Filtration Rate [...] actual GFR. Performed By: #### 2 4321-2, 73973-3, 2776-08 ####[facility] LABCLIA [id number] [place] [id number] [place] Glucose [Mass/Vol] 181 mg/dL High 74-99 [facility] Comment on above: Order Comment: Speci men Type: BLOOD SPECIMENOrdering Facility: [facility] Address: [address] [place] [address] Result Comment: The [place] [employer] (ADA) provides guidance for cutoff [...] Standards of Medical Care in Diabetes 2016, [place] [employer]. Diabetes Care. 2016.39(Suppl 1). Performed By: #### 2 4321-2, 80091-4, 2776- ####[facility] LABCLIA [id number] [place] [address] [place] Potassium [Moles/Vol] 3.6 mmol/L Low 3.7-5.1 [facility] Comment on above: Order Comment: Speci men Type: BLOOD SPECIMENOrdering Facility: [facility] Address: [address] [place] [address] Performed By: #### 2 4321-2, 23518-5, 2776-08 ####[facility] LABCLIA [id number] [place] [address] [place] Sodium [Moles/Vol] 130 mmol/L Low 136-144 [facility] Comment on above: Order Comment: Speci men Type: BLOOD SPECIMENOrdering Facility: [facility] Address: [address] [place] [address] Performed By: #### 2 4321-2, 73245-6, 2776-08 ####[facility] LABCLIA [id number] [place] [id number] [place] Urea nitrogen [Mass/Vol] 9 mg/dL Normal 9-24 [facility] Comment on above: Order Comment: Speci men Type: BLOOD SPECIMENOrdering Facility: [facility] Address: [address] [place] [address] Performed By: #### 2 4321-2, 41638-4, 2777-1 ####[facility] LABCLIA [id number] [place] [address] [place] CBC W Auto Differential pane l (Bld)on 11-16-2024 Basophils (Bld) [#/Vol] 0.05 10*3/uL Normal <0.11 [facility] Comment on above: Order Comment: Speci men Type: BLOOD SPECIMENOrdering Facility: [facility] Address: [address] [place] [address] Performed By: #### 5 7021-8 ####[facility] LABCLIA [id number] [place] [address] [place] Basophils/100 WBC (Bld) 0.8 % Normal C [facility] Comment on above: Order Comment: Speci men Type: BLOOD SPECIMENOrdering Facility: [facility] Address: [address] [place] [address] Performed By: #### 5 7021-8 ####[facility] LABCLIA [id number] [place] [address] [place] Differential cell count method Nom (Bld) Auto Normal [facility] Comment on above: Order Comment: Speci men Type: BLOOD SPECIMENOrdering Facility: [facility] Address: [address] [place] [address] Performed By: #### 5 7021-8 ####[facility] LABCLIA [id number] [place] [address] [place] Eosinophils (Bld) [#/Vol] 0.22 10*3/uL Normal <0.46 [facility] Comment on above: Order Comment: Speci men Type: BLOOD SPECIMENOrdering Facility: [facility] Address: [address] [place] [address] Performed By: #### 5 7021-8 ####[facility] LABCLIA [id number] [address], [place] [address] [place] Eosinophils/100 WBC (Bld) 3.6 % Normal [facility] Comment on above: Order Comment: Speci men Type: BLOOD SPECIMENOrdering Facility: [facility] Address: [address] [place] [address] Performed By: #### 5 7021-8 ####[facility] LABCLIA [id number] [address], [place] [address] [place] Erythrocyte distribution width (RBC) [Ratio] 16.7 % High 11.5-15.0 [facility] Comment on above: Order Comment: Speci men Type: BLOOD SPECIMENOrdering Facility: [facility] Address: [address] [place] [address] Performed By: #### 5 7021-8 ####[facility] LABCLIA [id number] [place] [address] [place] Hematocrit (Bld) [Volume fraction] 24.0 % Low 39.0-51.0 [facility] Comment on above: Order Comment: Speci men Type: BLOOD SPECIMENOrdering Facility: [facility] Address: [address] [place] [address] Performed By: #### 5 7021-8 ####[facility] LABCLIA [id number] [place] [address] [place] Hemoglobin (Bld) [Mass/Vol] 8.3 g/dL Low 13.0-17.0 [facility] Comment on above: Order Comment: Speci men Type: BLOOD SPECIMENOrdering Facility: [facility] Address: [address] [place] [address] Performed By: #### 5 7021-8 ####[facility] LABCLIA [id number] [address], [place] [address] [place] Immature granulocytes (Bld) [#/Vol] 0.05 10*3/uL Normal <0.10 [facility] Comment on above: Order Comment: Speci men Type: BLOOD SPECIMENOrdering Facility: [facility] Address: [address] [place] [address] Performed By: #### 5 7021-8 ####[facility] LABCLIA [id number] [place] [address] [place] Immature granulocytes/100 WBC (Bld) 0.8 % Normal [facility] Comment on above: Order Comment: Speci men Type: BLOOD SPECIMENOrdering Facility: [facility] Address: [address] [place] [address] Performed By: #### 5 7021-8 ####[facility] LABCLIA [id number] [place] [address] [place] Lymphocytes (Bld) [#/Vol] 0.75 10*3/uL Low 1.00-4.00 [facility] Comment on above: Order Comment: Speci men Type: BLOOD SPECIMENOrdering Facility: [facility] Address: [address] [place] [address] Performed By: #### 5 7021-8 ####[facility] LABCLIA [id number] [place] [address] [place] Lymphocytes/100 WBC (Bld) 12.4 % Normal [facility] Comment on above: Order Comment: Speci men Type: BLOOD SPECIMENOrdering Facility: [facility] Address: [address] [place] [address] Performed By: #### 5 7021-8 ####[facility] LABIA [id number] [place] [address] [place] MCH (RBC) [Entitic mass] 31.9 pg Normal 26.0-34.0 [facility] Comment on above: Order Comment: Speci men Type: BLOOD SPECIMENOrdering Facility: [facility] Address: [address] [place] [address] Performed By: #### 5 7021-8 ####[facility] LABCLIA [id number] [place] [address] [place] MCHC (RBC) [Mass/Vol] 34.6 g/dL Normal 30.5-36.0 [facility] Comment on above: Order Comment: Speci men Type: BLOOD SPECIMENOrdering Facility: [facility] Address: [address] [place] [address] Performed By: #### 5 7021-8 ####[facility] LABIA [id number] [place] [address] [place] MCV (RBC) [Entitic vol] 92.3 fL Normal 80.0-100.0 [facility] Comment on above: Order Comment: Speci men Type: BLOOD SPECIMENOrdering Facility: [facility] Address: [address] [place] [address] Performed By: #### 5 7021-8 ####[facility] LABIA [id number] [place] [address] [place] Monocytes (Bld) [#/Vol] 0.68 10*3/uL Normal <0.87 [facility] Comment on above: Order Comment: Speci men Type: BLOOD SPECIMENOrdering Facility: [facility] Address: [address] [place] [address] Performed By: #### 5 7021-8 ####[facility] LABCLIA [id number] [place] [address] [place] Monocytes/100 WBC (Bld) 11.3 % Normal C [facility] Comment on above: Order Comment: Speci men Type: BLOOD SPECIMENOrdering Facility: [facility] Address: [address] [place] [address] Performed By: #### 5 7021-8 ####[facility] LABCLIA [id number] [place] [address] [place] Neutrophils (Bld) [#/Vol] 4.28 10*3/uL Normal 1.45-7.50 [facility] Comment on above: Order Comment: Speci men Type: BLOOD SPECIMENOrdering Facility: [facility] Address: [address] [place] [address] Performed By: #### 5 7021-8 ####[facility] LABCLIA [id number] [place] [address] [place] Neutrophils/100 WBC (Bld) 71.1 % Normal [facility] Comment on above: Order Comment: Speci men Type: BLOOD SPECIMENOrdering Facility: [facility] Address: [address] [place] [address] Performed By: #### 5 7021-8 ####[facility] LABCLIA [id number] [place] [address] [place] Nucleated RBC (Bld) [#/Vol] 10*3/uL Normal <0.01 [facility] Comment on above: Order Comment: Speci men Type: BLOOD SPECIMENOrdering Facility: [facility] Address: [address] [place] [address] Performed By: #### 5 7021-8 ####[facility] LABCLIA [id number] [place] [address] [place] Nucleated RBC/100 WBC (Bld) [Ratio] 0.0 /100 WBC Normal [facility] Comment on above: Order Comment: Speci men Type: BLOOD SPECIMENOrdering Facility: [facility] Address: [address] [place] [address] Performed By: #### 5 7021-8 ####[facility] LABCLIA [id number] [place] [address] [place] Platelet mean volume (Bld) [Entitic vol] 11.8 fL Normal 9.0-12.7 [facility] Comment on above: Order Comment: Speci men Type: BLOOD SPECIMENOrdering Facility: [facility] Address: [address] [place] [address] Performed By: #### 5 7021-8 ####[facility] LABCLIA [id number] [place] [address] [place] Platelets (Bld) [#/Vol] 59 10*3/uL Low 150-400 C [facility] Comment on above: Order Comment: Speci men Type: BLOOD SPECIMENOrdering Facility: [facility] Address: [address] [place] [address] Result Comment: No c lot detected.Results checked and verified. Performed By: #### 5 7021-8 ####[facility] LABCLIA [id number] [place] [address] [place] RBC (Bld) [#/Vol] 2.60 10*6/uL Low 4.20-6.00 [facility] Comment on above: Order Comment: Speci men Type: BLOOD SPECIMENOrdering Facility: [facility] Address: [address] [place] [address] Performed By: #### 5 7021-8 ####[facility] LABIA [id number] [place] [address] [place] WBC (Bld) [#/Vol] 6.03 10*3/uL Normal 3.70-11.00 [facility] Comment on above: Order Comment: Speci men Type: BLOOD SPECIMENOrdering Facility: [facility] Address: [address] [place] [address] Performed By: #### 5 7021-8 ####[facility] LABIA [id number] [place] [address] [place] CONSULT PROGon 11-16-2024 CONSULT PROG Normal [facility] CYTOLOGY NON-GYNon AP DISCLAIMER Normal [facility] Comment on above: Order Comment: Speci men Type: FLUID SPECIMENOrdering Facility: [facility] Address: [address] [place] [address] Result Comment: Shellie pugh Developed Test (LDT) Disclaimer:Performance characteristics of immunohistochemical, immunofluorescent, and chromogenic in-situ hybridization tests have been determined by the performing laboratory within [facility]'s [facility] Pathology and Laboratory Medicine Department ([facility], [facility], [facility], [facility], [facility], [facility], or [facility]) in a manner consistent with CLIA [...] Performed By: #### C YTONON ####[facility] LABCLIA [id number] [place] [address] [place] CASE REPORT Normal [facility] Comment on above: Order Comment: Speci men Type: FLUID SPECIMENOrdering Facility: [facility] Address: [address] [place] [address] Result Comment: [facility] Cytology Report Case: [id number] Provider: Young Cruz MD Collected: 11/16/2024 08:42 AMOrdering Location: [place] [address] Received: 11/16/2024 06:20 PMPathologist: Stefani Mcneal MDSpecimen: Peritoneal Fluid. Performed By: #### C YTONON ####[facility] LABCLIA [id number] [place] [address] [place] CLINICAL HISTORY Cirrhosis with ascites Normal [facility] Comment on above: Order Comment: Speci men Type: FLUID SPECIMENOrdering Facility: [facility] Address: [address] [place] [address] Performed By: #### C YTONON ####[facility] LABCLIA [id number] [address] [place] FINAL DIAGNOSIS Normal [facility] Comment on above: Order Comment: Speci men Type: FLUID SPECIMENOrdering Facility: [facility] Address: [address] [place] [address] Result Comment: A - Peritoneal Fluid Negative for malignant cells. Chronic inflammation.The following cell blocks were associated with this case:A1 Cell Block, Alcohol Fixed at 1223 EDT Performed By: #### C YTONON ####[facility] LABCLIA [id number] [place] [address] [place] FINAL PERFORMING LAB Normal [facility] Comment on above: Order Comment: Speci men Type: FLUID SPECIMENOrdering Facility: [facility] Address: [address] [place] [address] Result Comment: Tech nical component, therapist's assistant screening performed at: [facility], [address] [place] [address] CLIA: [id number] interpretation performed at: [facility], [address] [place] [address] CLIA# [id number] Director: Titi Voss MD Performed By: #### C YTONON ####[facility] LABCLIA [id number] [address] [place] GROSS DESCRIPTION Normal [facility] Comment on above: Order Comment: Speci men Type: FLUID SPECIMENOrdering Facility: [facility] Address: [address] [place] [address] Result Comment: A. P eritoneal Fluid.1450 cc opaque red fluid . ThinPrep and Cell Block prepared. Performed By: #### C YTONON ####[facility] LABCLIA [id number] [place] [address] [place] ECG COMPLETEon 11-16-2024 ECG COMPLETE Normal [facility] Fibrinogen PPP-mCncon 2024 Fibrinogen Coag (PPP) [Mass/Vol] 127 mg/dL Low 200-400 [facility] Comment on above: Order Comment: Speci men Type: BLOOD SPECIMENOrdering Facility: [facility] Address: [address] [place] [address] Performed By: #### 3 255-7, 68659-2 ####[facility] LABCLIA [id number] [place] [id number] [place] Hepatic function 2000 panelo n 11-16-2024 Albumin [Mass/Vol] 2.8 g/dL Low 3.9-4.9 [facility] Comment on above: Order Comment: Speci men Type: BLOOD SPECIMENOrdering Facility: [facility] Address: [address] [place] [address] Performed By: #### 2 4321-2, 54234-2, 2777-1 ####[facility] LABCLIA [id number] [place] [address] [place] ALP [Catalytic activity/Vol] 295 U/L High 38-113 [facility] Comment on above: Order Comment: Speci men Type: BLOOD SPECIMENOrdering Facility: [facility] Address: [address] [place] [address] Performed By: #### 2 4321-2, 01627-9, 2777-1 ####[facility] LABCLIA [id number] [place] [address] [place] ALT [Catalytic activity/Vol] 38 U/L Normal 10-54 [facility] Comment on above: Order Comment: Speci men Type: BLOOD SPECIMENOrdering Facility: [facility] Address: [address] [place] [address] Performed By: #### 2 4321-2, 50779-9, 2777-1 ####[facility] LABCLIA [id number] [facility] [place] [id number] [place] AST [Catalytic activity/Vol] 88 U/L High 14-40 [facility] Comment on above: Order Comment: Speci men Type: BLOOD SPECIMENOrdering Facility: [facility] Address: [address] [place], [place] [address] Performed By: #### 2 4321-2, 39128-2, 27702-01 ####[facility] LABCLIA [id number] [address] [address] [place] Bilirubin [Mass/Vol] 1.8 mg/dL High 0.2-1.3 [facility] Comment on above: Order Comment: Speci men Type: BLOOD SPECIMENOrdering Facility: [facility] Address: [address] [place] [address] Performed By: #### 2 4321-2, 20444-7, 27702-01 ####[facility] LABCLIA [id number] [place] [address] [place] Bilirubin.conjugated [Mass/Vol] 0.9 mg/dL High <0.3 [facility] Comment on above: Order Comment: Speci men Type: BLOOD SPECIMENOrdering Facility: [facility] Address: [address] [place] [address] Performed By: #### 2 4321-2, 57576-6, 2776-08 ####[facility] LABCLIA [id number] [place] [id number] [place] Protein [Mass/Vol] 5.5 g/dL Low 6.3-8.0 [facility] Comment on above: Order Comment: Speci men Type: BLOOD SPECIMENOrdering Facility: [facility] Address: [address] [place], [place] [address] Performed By: #### 2 4321-2, 49645-2, 27702-01 ####[facility] LABCLIA [id number] [place] [id number] [place] MANUAL DIFFERENTIAL, BODY FL UIDon 11-16-2024 DIF TTL, BODY FLUID 100 cells counted Normal [facility] Comment on above: Order Comment: Speci men Type: FLUID SPECIMENOrdering Facility: [facility] Address: [address] [place] [address] Performed By: #### C CBF, [id number] ####[facility] LABCLIA [id number] [facility] [address], [place] [address] [place] LYMPH%, BF 47 % High 18-36 [facility] Comment on above: Order Comment: Speci men Type: FLUID SPECIMENOrdering Facility: [facility] Address: [address] [place] [address] Performed By: #### C CBF, [id number] ####[facility] LABCLIA [id number] [address], [place] [address] [place] MACRO%, BF 6 % Low 64-80 [facility] Comment on above: Order Comment: Speci men Type: FLUID SPECIMENOrdering Facility: [facility] Address: [address] [place] [address] Performed By: #### C CBF, [id number] ####[facility] LABCLIA [id number] [address], [place] [address] [place] MESO %, BF 25 % High 0-2 [facility] Comment on above: Order Comment: Speci men Type: FLUID SPECIMENOrdering Facility: [facility] Address: [address] [place] [address] Performed By: #### C CBF, [id number] ####[facility] LABCLIA [id number] [address], [facility] [place] MONO% BF 8 % Normal [facility] Comment on above: Order Comment: Speci men Type: FLUID SPECIMENOrdering Facility: [facility] Address: [address] [place] [address] Performed By: #### C CBF, [id number] ####[facility] LABCLIA [id number] [address], [facility] [place] NEUT%, BF 14 % High 0-1 [facility] Comment on above: Order Comment: Speci men Type: FLUID SPECIMENOrdering Facility: [facility] Address: [address] [place] [address] Performed By: #### C CBF, [id number] ####[facility] LABCLIA [id number] [place] [address] [place] NURSING PROGon 11-16-2024 NURSING PROG Normal [facility] NURSING PROG Normal [facility] PT panel Coag (PPP)on 2024 INR Coag (PPP) [Relative time] 2.1 {INR} High 0.9-1.3 [facility] Comment on above: Order Comment: Ezekiel ramirez Type: BLOOD SPECIMENOrdering Facility: [facility] Address: [address] [place] [address] Result Comment: Sarah min K Antagonist (VKA) Therapeutic Range: INR 2 to 3 (Target INR of 2.5)Note: For patients treated with VKA drugs, such as warfarin, the [place] [employer] 2012 Guideline recommends [...] Chest 2012, 141:7S-47SNishimnicolle RA, et al. [facility] 2017, 70: 252-289 Performed By: #### 3 4528-0 ####[facility] LABIA [id number] [place] [id number] [place] PT Coag (PPP) [Time] 21.5 s High 9.7-13.0 [facility] Comment on above: Order Comment: Ezekiel ramirez Type: BLOOD SPECIMENOrdering Facility: [facility] Address: [address] [place] [address] Performed By: #### 3 4528-0 ####[facility] LABCLIA [id number] [place] [address] [place] INR Coag (PPP) [Relative time] 2.0 {INR} High 0.9-1.3 [facility] Comment on above: Order Comment: Speci men Type: BLOOD SPECIMENOrdering Facility: [facility] Address: [address] [place] [address] Result Comment: Sarah min K Antagonist (VKA) Therapeutic Range: INR 2 to 3 (Target INR of 2.5)Note: For patients treated with VKA drugs, such as warfarin, the [place] [employer] 2012 Guideline recommends [...] Chest 2012, 141:7S-47SHector RA, et al. [facility] 2017, 70: 252-289 Performed By: #### 3 255-7, 70873-7 ####[facility] LABCLIA [id number] [place] [id number] [place] PT Coag (PPP) [Time] 20.3 s High 9.7-13.0 [facility] Comment on above: Order Comment: Speci men Type: BLOOD SPECIMENOrdering Facility: [facility] Address: [address] [place] [address] Performed By: #### 3 255-7, 01902-3 ####[facility] LABIA [id number] [address] [place] Phosphate SerPl-ncon 11-16 Phosphate [Mass/Vol] 2.3 mg/dL Low 2.7-4.8 [facility] Comment on above: Order Comment: Speci men Type: BLOOD SPECIMENOrdering Facility: [facility] Address: [address] [place] [address] Performed By: #### 2 4321-2, 76741-2, 2777-1 ####[facility] LABCLIA [id number] [address] [place] Prot Fld-[facility] 11-16-2024 Protein (Body fld) [Mass/Vol] 0.5 g/dL Normal See Comment [facility] Comment on above: Order Comment: Speci men Type: FLUID SPECIMENOrdering Facility: [facility] Address: [address] [place] [address] Result Comment: Sero us fluids: Effusions are [...] document C49A. PAULETTE Diaz: Clinical Laboratory Standards [place]: 2007. Performed By: #### 1 795-4, 2881-1, 1747-5 ####[facility] LABIA [id number] [place] [id number] [facility] [place] THERAPY NTon 11-16-2024 THERAPY NT Normal [facility] THERAPY NT Normal [facility] BLOOD TB SCREENon 11-15-2024 M. tuberculosis tuberculin stim IFN-g Ql (Bld) Indeterminate Normal [facility] Comment on above: Order Comment: Speci men Type: BLOOD SPECIMENOrdering Facility: [facility] Address: [address] [place] [address] Performed By: #### I [id number] ####[facility] LABCLIA [id number] [address] [place] [address] [place] MITOGEN MINUS NIL 0.25 IU/mL Low >=0.50 [facility] Comment on above: Order Comment: Speci men Type: BLOOD SPECIMENOrdering Facility: [facility] Address: [address] [place] [address] Performed By: #### I NFTBP ####[facility] LABCLIA [id number] [place] [address] [place] TB GAMMA INTERPRETATION Normal C [facility] Comment on above: Order Comment: Speci men Type: BLOOD SPECIMENOrdering Facility: [facility] Address: [address] [place] [address] Performed By: #### I NFTBP ####[facility] LABCLIA [id number] [place] [address] [place] TB NIL 0.01 IU/mL Normal <=8.00 [facility] Comment on above: Order Comment: Speci men Type: BLOOD SPECIMENOrdering Facility: [facility] Address: [address] [place] [address] Performed By: #### I NFTBP ####[facility] LABCLIA [id number] [place] [id number] [place] TB1 AG MINUS NIL 0.00 IU/mL Normal <0.35 [facility] Comment on above: Order Comment: Speci men Type: BLOOD SPECIMENOrdering Facility: [facility] Address: [address] [place] [address] Performed By: #### I NFTBP ####[facility] LABCLIA [id number] [place] [address] [place] TB2 AG MINUS NIL 0.01 IU/mL Normal <0.35 [facility] Comment on above: Order Comment: Speci men Type: BLOOD SPECIMENOrdering Facility: [facility] Address: [address] [place] [address] Performed By: #### I NFTBP ####[facility] LABCLIA [id number] [address] [place] CASE MANAGEMon 11-15-2024 CASE MANAGEM Normal [facility] CASE MANAGEM Normal [facility] CBC W Auto Differential pane l (Bld)on 11-15-2024 Basophils (Bld) [#/Vol] 0.05 10*3/uL Normal <0.11 [facility] Comment on above: Order Comment: Speci men Type: BLOOD SPECIMENOrdering Facility: [facility] Address: [address] [place] [address] Performed By: #### 5 7021-8 ####[facility] LABCLIA [id number] [place] [address] [place] Basophils/100 WBC (Bld) 0.8 % Normal [facility] Comment on above: Order Comment: Speci men Type: BLOOD SPECIMENOrdering Facility: [facility] Address: [address] [place] [address] Performed By: #### 5 7021-8 ####[facility] LABCLIA [id number] [place] [address] [place] Differential cell count method Nom (Bld) Auto Normal [facility] Comment on above: Order Comment: Speci men Type: BLOOD SPECIMENOrdering Facility: [facility] Address: [address] [place] [address] Performed By: #### 5 7021-8 ####[facility] LABCLIA [id number] [place] [address] [place] Eosinophils (Bld) [#/Vol] 0.28 10*3/uL Normal <0.46 [facility] Comment on above: Order Comment: Speci men Type: BLOOD SPECIMENOrdering Facility: [facility] Address: [address] [place] [address] Performed By: #### 5 7021-8 ####[facility] LABIA [id number] [place] [id number] [place] Eosinophils/100 WBC (Bld) 4.6 % Normal [facility] Comment on above: Order Comment: Speci men Type: BLOOD SPECIMENOrdering Facility: [facility] Address: [address] [place] [address] Performed By: #### 5 7021-8 ####[facility] LABIA [id number] [place] [address] [place] Erythrocyte distribution width (RBC) [Ratio] 16.8 % High 11.5-15.0 [facility] Comment on above: Order Comment: Speci men Type: BLOOD SPECIMENOrdering Facility: [facility] Address: [address] [place] [address] Performed By: #### 5 7021-8 ####[facility] LABIA [id number] [place] [address] [place] Hematocrit (Bld) [Volume fraction] 22.9 % Low 39.0-51.0 [facility] Comment on above: Order Comment: Speci men Type: BLOOD SPECIMENOrdering Facility: [facility] Address: [address] [place] [address] Performed By: #### 5 7021-8 ####[facility] LABIA [id number] [place] [id number] [place] Hemoglobin (Bld) [Mass/Vol] 7.6 g/dL Low 13.0-17.0 [facility] Comment on above: Order Comment: Speci men Type: BLOOD SPECIMENOrdering Facility: [facility] Address: [address] [place] [address] Performed By: #### 5 7021-8 ####[facility] LABCLIA [id number] [place] [address] [place] Immature granulocytes (Bld) [#/Vol] 0.03 10*3/uL Normal <0.10 [facility] Comment on above: Order Comment: Speci men Type: BLOOD SPECIMENOrdering Facility: [facility] Address: [address] [place] [address] Performed By: #### 5 7021-8 ####[facility] LABCLIA [id number] [address] [place] Immature granulocytes/100 WBC (Bld) 0.5 % Normal [facility] Comment on above: Order Comment: Speci men Type: BLOOD SPECIMENOrdering Facility: [facility] Address: [address] [place] [address] Performed By: #### 5 7021-8 ####[facility] LABCLIA [id number] [address] [place] Lymphocytes (Bld) [#/Vol] 0.70 10*3/uL Low 1.00-4.00 [facility] Comment on above: Order Comment: Speci men Type: BLOOD SPECIMENOrdering Facility: [facility] Address: [address] [place] [address] Performed By: #### 5 7021-8 ####[facility] LABCLIA [id number] [address] [place] Lymphocytes/100 WBC (Bld) 11.5 % Normal [facility] Comment on above: Order Comment: Speci men Type: BLOOD SPECIMENOrdering Facility: [facility] Address: [address] [place] [address] Performed By: #### 5 7021-8 ####[facility] LABCLIA [id number] [place] [address] [place] MCH (RBC) [Entitic mass] 30.6 pg Normal 26.0-34.0 [facility] Comment on above: Order Comment: Speci men Type: BLOOD SPECIMENOrdering Facility: [facility] Address: [address] [place] [address] Performed By: #### 5 7021-8 ####[facility] LABCLIA [id number] [place] [address] [place] MCHC (RBC) [Mass/Vol] 33.2 g/dL Normal 30.5-36.0 [facility] Comment on above: Order Comment: Speci men Type: BLOOD SPECIMENOrdering Facility: [facility] Address: [address] [place] [address] Performed By: #### 5 7021-8 ####[facility] LABCLIA [id number] [place] [address] [place] MCV (RBC) [Entitic vol] 92.3 fL Normal 80.0-100.0 C [facility] Comment on above: Order Comment: Speci men Type: BLOOD SPECIMENOrdering Facility: [facility] Address: [address] [place] [address] Performed By: #### 5 7021-8 ####[facility] LABIA [id number] [place] [address] [place] Monocytes (Bld) [#/Vol] 0.73 10*3/uL Normal <0.87 [facility] Comment on above: Order Comment: Speci men Type: BLOOD SPECIMENOrdering Facility: [facility] Address: [address] [place] [address] Performed By: #### 5 7021-8 ####[facility] LABIA [id number] [place] [address] [place] Monocytes/100 WBC (Bld) 12.0 % Normal C [facility] Comment on above: Order Comment: Speci men Type: BLOOD SPECIMENOrdering Facility: [facility] Address: [address] [place] [address] Performed By: #### 5 7021-8 ####[facility] LABCLIA [id number] [place] [address] [place] Neutrophils (Bld) [#/Vol] 4.30 10*3/uL Normal 1.45-7.50 [facility] Comment on above: Order Comment: Speci men Type: BLOOD SPECIMENOrdering Facility: [facility] Address: [address] [place] [address] Performed By: #### 5 7021-8 ####[facility] LABCLIA [id number] [place] [address] [place] Neutrophils/100 WBC (Bld) 70.6 % Normal [facility] Comment on above: Order Comment: Speci men Type: BLOOD SPECIMENOrdering Facility: [facility] Address: [address] [place] [address] Performed By: #### 5 7021-8 ####[facility] LABCLIA [id number] [place] [address] [place] Nucleated RBC (Bld) [#/Vol] 10*3/uL Normal <0.01 [facility] Comment on above: Order Comment: Speci men Type: BLOOD SPECIMENOrdering Facility: [facility] Address: [address] [place] [address] Performed By: #### 5 7021-8 ####[facility] LABCLIA [id number] [place] [address] [place] Nucleated RBC/100 WBC (Bld) [Ratio] 0.0 /100 WBC Normal [facility] Comment on above: Order Comment: Speci men Type: BLOOD SPECIMENOrdering Facility: [facility] Address: [address] [place] [address] Performed By: #### 5 7021-8 ####[facility] LABCLIA [id number] [address] [place] [address] [place] Platelet mean volume (Bld) [Entitic vol] 12.2 fL Normal 9.0-12.7 [facility] Comment on above: Order Comment: Speci men Type: BLOOD SPECIMENOrdering Facility: [facility] Address: [address] [place] [address] Performed By: #### 5 7021-8 ####[facility] LABCLIA [id number] [place] [address] [place] Platelets (Bld) [#/Vol] 53 10*3/uL Low 150-400 C [facility] Comment on above: Order Comment: Speci men Type: BLOOD SPECIMENOrdering Facility: [facility] Address: [address] [place] [address] Performed By: #### 5 7021-8 ####[facility] LABCLIA [id number] [place] [address] [place] RBC (Bld) [#/Vol] 2.48 10*6/uL Low 4.20-6.00 [facility] Comment on above: Order Comment: Speci men Type: BLOOD SPECIMENOrdering Facility: [facility] Address: [address] [place] [address] Performed By: #### 5 7021-8 ####[facility] LABCLIA [id number] [place] [id number] [place] WBC (Bld) [#/Vol] 6.09 10*3/uL Normal 3.70-11.00 [facility] Comment on above: Order Comment: Speci men Type: BLOOD SPECIMENOrdering Facility: [facility] Address: [address] [place] [address] Performed By: #### 5 7021-8 ####[facility] LABCLIA [id number] [place] [phone] [place] CNOVon 11-15-2024 CNOV Normal [facility] CONSULTon 11-15-2024 CONSULT Normal [facility] CONSULT PROGon 11-15-2024 CONSULT PROG Normal [facility] Fibrinogen PPP-mCncon 2024 Fibrinogen Coag (PPP) [Mass/Vol] 123 mg/dL Low 200-400 [facility] Comment on above: Order Comment: Speci men Type: BLOOD SPECIMENOrdering Facility: [facility] Address: [address] [place] [address] Performed By: #### 3 255-7, 13491-9 ####[facility] LABCLIA [id number] [place] [address] [place] Hepatic function 2000 panelo n 11-15-2024 Albumin [Mass/Vol] 2.8 g/dL Low 3.9-4.9 [facility] Comment on above: Order Comment: Speci men Type: BLOOD SPECIMENOrdering Facility: [facility] Address: [address] [place] [address] Performed By: #### 2 4325-3, 84009-9 ####[facility] LABCLIA [id number] [place] [address] [place] ALP [Catalytic activity/Vol] 277 U/L High 38-113 [facility] Comment on above: Order Comment: Speci men Type: BLOOD SPECIMENOrdering Facility: [facility] Address: [address] [place] [address] Performed By: #### 2 4325-3, 99981-8 ####[facility] LABCLIA [id number] [place] [id number] [place] ALT [Catalytic activity/Vol] 36 U/L Normal 10-54 [facility] Comment on above: Order Comment: Speci men Type: BLOOD SPECIMENOrdering Facility: [facility] Address: [address] [place] [address] Performed By: #### 2 4325-3, 67163-4 ####[facility] LABCLIA [id number] [place] [phone] [place] AST [Catalytic activity/Vol] 87 U/L High 14-40 [facility] Comment on above: Order Comment: Speci men Type: BLOOD SPECIMENOrdering Facility: [facility] Address: [address] [place] [address] Performed By: #### 2 4325-3, 72196-5 ####[facility] LABCLIA [id number] [place] [address] [place] Bilirubin [Mass/Vol] 1.6 mg/dL High 0.2-1.3 [facility] Comment on above: Order Comment: Speci men Type: BLOOD SPECIMENOrdering Facility: [facility] Address: [address] [place] [address] Performed By: #### 2 4325-3, 20402-2 ####[facility] LABIA [id number] [place] [address] [place] Bilirubin.conjugated [Mass/Vol] 0.9 mg/dL High <0.3 [facility] Comment on above: Order Comment: Speci men Type: BLOOD SPECIMENOrdering Facility: [facility] Address: [address] [place] [address] Performed By: #### 2 4325-3, 59613-0 ####[facility] LABIA [id number] [place] [address] [place] Protein [Mass/Vol] 5.4 g/dL Low 6.3-8.0 [facility] Comment on above: Order Comment: Speci men Type: BLOOD SPECIMENOrdering Facility: [facility] Address: [address] [place] [address] Performed By: #### 2 4325-3, 56289-9 ####[facility] LABCLIA [id number] [place] [phone] [place] PT panel Coag (PPP)on 2024 INR Coag (PPP) [Relative time] 1.8 {INR} High 0.9-1.3 [facility] Comment on above: Order Comment: Ezekiel ramirez Type: BLOOD SPECIMENOrdering Facility: [facility] Address: [address] [place] [address] Result Comment: Sarah min K Antagonist (VKA) Therapeutic Range: INR 2 to 3 (Target INR of 2.5)Note: For patients treated with VKA drugs, such as warfarin, the [place] [employer] 2012 Guideline recommends [...] Chest 2012, 141:7S-47SNishimura RA, et al. [facility] 2017, 70: 252-289 Performed By: #### 3 255-7, 82678-1 ####[facility] [id number] [place] [address] [place] PT Coag (PPP) [Time] 18.9 s High 9.7-13.0 [facility] Comment on above: Order Comment: Ezekiel ramirez Type: BLOOD SPECIMENOrdering Facility: [facility] Address: [address] [place] [address] Performed By: #### 3 255-7, 12282-3 ####[facility] [id number] [place] [address] [place] Renal function 2000 panelon 11-15-2024 Albumin [Mass/Vol] 2.9 g/dL Low 3.9-4.9 [facility] Comment on above: Order Comment: Ezekiel ramirez Type: BLOOD SPECIMENOrdering Facility: [facility] Address: [address] [place] [address] Performed By: #### 2 4325-3, 96855-1 ####[facility] LABCLIA [id number] [place] [phone] [place] Anion gap [Moles/Vol] 15 mmol/L Normal 8-15 [facility] Comment on above: Order Comment: Speci men Type: BLOOD SPECIMENOrdering Facility: [facility] Address: [address] [place] [address] Performed By: #### 2 4325-3, 38042-3 ####[facility] LABCLIA [id number] [place] [address] [place] Calcium [Mass/Vol] 8.4 mg/dL Low 8.5-10.2 [facility] Comment on above: Order Comment: Speci men Type: BLOOD SPECIMENOrdering Facility: [facility] Address: [address] [place] [address] Performed By: #### 2 4325-3, 02885-3 ####[facility] LABCLIA [id number] [place] [phone] [place] Chloride [Moles/Vol] 99 mmol/L Normal 98-107 [facility] Comment on above: Order Comment: Speci men Type: BLOOD SPECIMENOrdering Facility: [facility] Address: [address] [place], [place] [address] Performed By: #### 2 4325-3, 49054-9 ####[facility] LABCLIA [id number] [facility] [place] [phone] [place] CO2 [Moles/Vol] 14 mmol/L Low 22-30 [facility] Comment on above: Order Comment: Speci men Type: BLOOD SPECIMENOrdering Facility: [facility] Address: [address] [place], [place] [address] Performed By: #### 2 4325-3, 75421-3 ####[facility] LABCLIA [id number] [place] [phone] [place] Creatinine [Mass/Vol] 0.80 mg/dL Normal 0.73-1.22 [facility] Comment on above: Order Comment: Ezekiel ramirez Type: BLOOD SPECIMENOrdering Facility: [facility] Address: [address] [place] [address] Performed By: #### 2 4325-3, 16335-5 ####[facility]UN[facility] [id number] [address] Creatinine and Glomerular filtration rate.predicted panel (S/P/Bld) 103 mL/min/1.73m??? Normal >=60 [facility] Comment on above: Order Comment: Ezekiel ramirez Type: BLOOD SPECIMENOrdering Facility: [facility] Address: [address] [place] [address] Result Comment: Patric mated Glomerular Filtration Rate [...] actual GFR. Performed By: #### 2 4325-3, 86869-5 ####[facility] LABIA [id number] [place] [address] [place] Glucose [Mass/Vol] 272 mg/dL High 74-99 [facility] Comment on above: Order Comment: Ezekiel ramirez Type: BLOOD SPECIMENOrdering Facility: [facility] Address: [address] [place] [address] Result Comment: The [place] [employer] (ADA) provides guidance for cutoff [...] Standards of Medical Care in Diabetes 2016, [place] [employer]. Diabetes Care. 2016.39(Suppl 1). Performed By: #### 2 4325-3, 98118-5 ####[facility] LABCLIA [id number] [address] [address] [place] Phosphate [Mass/Vol] 2.2 mg/dL Low 2.7-4.8 [facility] Comment on above: Order Comment: Speci men Type: BLOOD SPECIMENOrdering Facility: [facility] Address: [address] [place] [address] Performed By: #### 2 4325-3, 30696-0 ####[facility] LABIA [id number] [place] [phone] [place] Potassium [Moles/Vol] 3.8 mmol/L Normal 3.7-5.1 [facility] Comment on above: Order Comment: Speci men Type: BLOOD SPECIMENOrdering Facility: [facility] Address: [address] [place] [address] Performed By: #### 2 4325-3, 68550-4 ####[facility] LABIA [id number] [address] [address] [place] Sodium [Moles/Vol] 128 mmol/L Low 136-144 [facility] Comment on above: Order Comment: Speci men Type: BLOOD SPECIMENOrdering Facility: [facility] Address: [address] [place] [address] Performed By: #### 2 4325-3, 99415-9 ####[facility] LABCLIA [id number] [address] [address] [place] Urea nitrogen [Mass/Vol] 11 mg/dL Normal 9-24 [facility] Comment on above: Order Comment: Speci men Type: BLOOD SPECIMENOrdering Facility: [facility] Address: [address] [place] [address] Performed By: #### 2 4325-3, 21961-0 ####[facility] LABCLIA [id number] [place] [address] [place] SEPSIS LACTATEon 11-15-2024 Lactate [Moles/Vol] 3.2 mmol/L High <=2.0 [facility] Comment on above: Order Comment: Speci men Type: BLOOD SPECIMENOrdering Facility: [facility] Address: [address] [place] [address] Performed By: #### S LACT ####[facility] LABCLIA [id number] [place] [address] [place] SOCIAL WORKon 11-15-2024 SOCIAL WORK Normal [facility] THERAPY NTon 11-15-2024 THERAPY NT Normal [facility] THERAPY NT Normal [facility] TYPE + SCREENon 11-15-2024 ABO O Normal [facility] Comment on above: Order Comment: Speci men Type: BLOOD SPECIMENOrdering Facility: [facility] Address: [address] [place] [address] Performed By: #### T SCR ####[facility] BLOOD BANKCLIA [id number] [place] [address] [place] Rh Nom (Bld) Positive Normal [facility] Comment on above: Order Comment: Speci men Type: BLOOD SPECIMENOrdering Facility: [facility] Address: [address] [place] [address] Performed By: #### T SCR ####[facility] BLOOD BANKCLIA [id number] [place] [address] [place] TYPE AND SCREEN EXPIRATION 11/18/2024 23:59 Normal [facility] Comment on above: Order Comment: Speci men Type: BLOOD SPECIMENOrdering Facility: [facility] Address: [address] [place] [address] Performed By: #### T SCR ####[facility] BLOOD BANKCLIA [id number] [address] [address] [place] US ASCITES SURVEYon 11-16-19 US ASCITES SURVEY Normal [facility] Basic metabolic 2000 panelon 11-14-2024 Anion gap [Moles/Vol] 11 mmol/L Normal 8-15 [facility] Comment on above: Order Comment: Speci men Type: BLOOD SPECIMENOrdering Facility: [facility] Address: [address] [place] [address] Performed By: #### 2 4321-2, 21747-4, 2777-1, 64487-0 ####[facility] LABIA [id number] [place] [address] [place] Calcium [Mass/Vol] 8.9 mg/dL Normal 8.5-10.2 [facility] Comment on above: Order Comment: Speci men Type: BLOOD SPECIMENOrdering Facility: [facility] Address: [address] [place] [address] Performed By: #### 2 4321-2, 10748-4, 277-1, 53325-9 ####[facility] LABIA [id number] [place] [id number] [place] Chloride [Moles/Vol] 99 mmol/L Normal 98-107 [facility] Comment on above: Order Comment: Speci men Type: BLOOD SPECIMENOrdering Facility: [facility] Address: [address] [place] [address] Performed By: #### 2 4321-2, 40162-5, 2777-1, 26396-8 ####[facility] LABIA [id number] [place] [id number] [place] CO2 [Moles/Vol] 17 mmol/L Low 22-30 [facility] Comment on above: Order Comment: Speci men Type: BLOOD SPECIMENOrdering Facility: [facility] Address: [address] [place] [address] Performed By: #### 2 4321-2, 27955-1, 2777-1, 54776-7 ####[facility] [id number] [place] [id number] [place] Creatinine [Mass/Vol] 0.89 mg/dL Normal 0.73-1.22 [facility] Comment on above: Order Comment: Ezekiel ramirez Type: BLOOD SPECIMENOrdering Facility: [facility] Address: [address] [place] [address] Performed By: #### 2 4321-2, 14838-1, 2776-, ####[facility] [id number] [place] [address] [place] Creatinine and Glomerular filtration rate.predicted panel (S/P/Bld) 99 mL/min/1.73m??? Normal >=60 [facility] Comment on above: Order Comment: Ezekiel ramirez Type: BLOOD SPECIMENOrdering Facility: [facility] Address: [address] [place] [address] Result Comment: Patric mated Glomerular Filtration Rate [...] actual GFR. Performed By: #### 2 4321-2, 03542-5, 277-, ####[facility] [id number] [address] [address] [place] Glucose [Mass/Vol] 250 mg/dL High 74-99 [facility] Comment on above: Order Comment: Ezekiel ramirez Type: BLOOD SPECIMENOrdering Facility: [facility] Address: [address] [place] [address] Result Comment: The [place] [employer] (ADA) provides guidance for cutoff [...] Standards of Medical Care in Diabetes 2016, [place] [employer]. Diabetes Care. 2016.39(Suppl 1). Performed By: #### 2 4321-2, 07947-6, 7-1, ####[facility] LABCLIA [id number] [place] [address] [place] Potassium [Moles/Vol] 3.6 mmol/L Low 3.7-5.1 [facility] Comment on above: Order Comment: Speci men Type: BLOOD SPECIMENOrdering Facility: [facility] Address: [address] [place] [address] Performed By: #### 2 4321-2, 76868-8, 2776-08, ####[facility] [id number] [place] [address] [place] Sodium [Moles/Vol] 127 mmol/L Low 136-144 [facility] Comment on above: Order Comment: Speci men Type: BLOOD SPECIMENOrdering Facility: [facility] Address: [address] [place] [address] Performed By: #### 2 4321-2, 38966-0, 277-, ####[facility] LABIA [id number] [place] [id number] [place] Urea nitrogen [Mass/Vol] 14 mg/dL Normal 9-24 [facility] Comment on above: Order Comment: Speci men Type: BLOOD SPECIMENOrdering Facility: [facility] Address: [address] [place], [place] [address] Performed By: #### 2 4321-2, 45255-1, 2777-1, 32734-5 ####[facility] LABCLIA [id number] [place] [address] [place] CBC W Auto Differential pane l (Bld)on 11-14-2024 Basophils (Bld) [#/Vol] 0.04 10*3/uL Normal <0.11 [facility] Comment on above: Order Comment: Speci men Type: BLOOD SPECIMENOrdering Facility: [facility] Address: [address] [place] [address] Performed By: #### 5 7021-8 ####[facility] LABCLIA [id number] [place] [address] [place] Basophils/100 WBC (Bld) 0.7 % Normal C [facility] Comment on above: Order Comment: Speci men Type: BLOOD SPECIMENOrdering Facility: [facility] Address: [address] [place] [address] Performed By: #### 5 7021-8 ####[facility] LABCLIA [id number] [place] [address] [place] Differential cell count method Nom (Bld) Auto Normal [facility] Comment on above: Order Comment: Speci men Type: BLOOD SPECIMENOrdering Facility: [facility] Address: [address] [place] [address] Performed By: #### 5 7021-8 ####[facility] LABCLIA [id number] [place] [id number] [place] Eosinophils (Bld) [#/Vol] 0.23 10*3/uL Normal <0.46 [facility] Comment on above: Order Comment: Speci men Type: BLOOD SPECIMENOrdering Facility: [facility] Address: [address] [place] [address] Performed By: #### 5 7021-8 ####[facility] LABCLIA [id number] [place] [address] [place] Eosinophils/100 WBC (Bld) 4.1 % Normal [facility] Comment on above: Order Comment: Speci men Type: BLOOD SPECIMENOrdering Facility: [facility] Address: [address] [place] [address] Performed By: #### 5 7021-8 ####[facility] LABCLIA [id number] [address], [place] [address] [place] Erythrocyte distribution width (RBC) [Ratio] 16.3 % High 11.5-15.0 [facility] Comment on above: Order Comment: Speci men Type: BLOOD SPECIMENOrdering Facility: [facility] Address: [address] [place] [address] Performed By: #### 5 7021-8 ####[facility] LABCLIA [id number] [place] [address] [place] Hematocrit (Bld) [Volume fraction] 22.7 % Low 39.0-51.0 [facility] Comment on above: Order Comment: Speci men Type: BLOOD SPECIMENOrdering Facility: [facility] Address: [address] [place] [address] Performed By: #### 5 7021-8 ####[facility] LABCLIA [id number] [place] [address] [place] Hemoglobin (Bld) [Mass/Vol] 7.9 g/dL Low 13.0-17.0 [facility] Comment on above: Order Comment: Speci men Type: BLOOD SPECIMENOrdering Facility: [facility] Address: [address] [place] [address] Performed By: #### 5 7021-8 ####[facility] LABCLIA [id number] [address], [place] [address] [place] Immature granulocytes (Bld) [#/Vol] 0.04 10*3/uL Normal <0.10 [facility] Comment on above: Order Comment: Speci men Type: BLOOD SPECIMENOrdering Facility: [facility] Address: [address] [place] [address] Performed By: #### 5 7021-8 ####[facility] LABCLIA [id number] [place] [address] [place] Immature granulocytes/100 WBC (Bld) 0.7 % Normal [facility] Comment on above: Order Comment: Speci men Type: BLOOD SPECIMENOrdering Facility: [facility] Address: [address] [place] [address] Performed By: #### 5 7021-8 ####[facility] LABCLIA [id number] [place] [address] [place] Lymphocytes (Bld) [#/Vol] 0.72 10*3/uL Low 1.00-4.00 [facility] Comment on above: Order Comment: Speci men Type: BLOOD SPECIMENOrdering Facility: [facility] Address: [address] [place] [address] Performed By: #### 5 7021-8 ####[facility] LABCLIA [id number] [place] [address] [place] Lymphocytes/100 WBC (Bld) 12.8 % Normal [facility] Comment on above: Order Comment: Speci men Type: BLOOD SPECIMENOrdering Facility: [facility] Address: [address] [place] [address] Performed By: #### 5 7021-8 ####[facility] LABCLIA [id number] [place] [id number] [place] MCH (RBC) [Entitic mass] 31.7 pg Normal 26.0-34.0 [facility] Comment on above: Order Comment: Speci men Type: BLOOD SPECIMENOrdering Facility: [facility] Address: [address] [place] [address] Performed By: #### 5 7021-8 ####[facility] LABCLIA [id number] [place] [address] [place] MCHC (RBC) [Mass/Vol] 34.8 g/dL Normal 30.5-36.0 [facility] Comment on above: Order Comment: Speci men Type: BLOOD SPECIMENOrdering Facility: [facility] Address: [address] [place] [address] Performed By: #### 5 7021-8 ####[facility] LABCLIA [id number] [place] [address] [place] MCV (RBC) [Entitic vol] 91.2 fL Normal 80.0-100.0 C [facility] Comment on above: Order Comment: Speci men Type: BLOOD SPECIMENOrdering Facility: [facility] Address: [address] [place] [address] Performed By: #### 5 7021-8 ####[facility] LABIA [id number] [place] [address] [place] Monocytes (Bld) [#/Vol] 0.68 10*3/uL Normal <0.87 [facility] Comment on above: Order Comment: Speci men Type: BLOOD SPECIMENOrdering Facility: [facility] Address: [address] [place] [address] Performed By: #### 5 7021-8 ####[facility] LABIA [id number] [place] [address] [place] Monocytes/100 WBC (Bld) 12.1 % Normal C [facility] Comment on above: Order Comment: Speci men Type: BLOOD SPECIMENOrdering Facility: [facility] Address: [address] [place] [address] Performed By: #### 5 7021-8 ####[facility] LABIA [id number] [place] [address] [place] Neutrophils (Bld) [#/Vol] 3.92 10*3/uL Normal 1.45-7.50 [facility] Comment on above: Order Comment: Speci men Type: BLOOD SPECIMENOrdering Facility: [facility] Address: [address] [place] [address] Performed By: #### 5 7021-8 ####[facility] LABCLIA [id number] [place] [id number] [place] Neutrophils/100 WBC (Bld) 69.6 % Normal [facility] Comment on above: Order Comment: Speci men Type: BLOOD SPECIMENOrdering Facility: [facility] Address: [address] [place] [address] Performed By: #### 5 7021-8 ####[facility] LABCLIA [id number] [place] [address] [place] Nucleated RBC (Bld) [#/Vol] 10*3/uL Normal <0.01 [facility] Comment on above: Order Comment: Speci men Type: BLOOD SPECIMENOrdering Facility: [facility] Address: [address] [place] [address] Performed By: #### 5 7021-8 ####[facility] LABIA [id number] [place] [address] [place] Nucleated RBC/100 WBC (Bld) [Ratio] 0.0 /100 WBC Normal [facility] Comment on above: Order Comment: Speci men Type: BLOOD SPECIMENOrdering Facility: [facility] Address: [address] [place] [address] Performed By: #### 5 7021-8 ####[facility] LABIA [id number] [place] [id number] [place] Platelet mean volume (Bld) [Entitic vol] 12.1 fL Normal 9.0-12.7 [facility] Comment on above: Order Comment: Speci men Type: BLOOD SPECIMENOrdering Facility: [facility] Address: [address] [place] [address] Performed By: #### 5 7021-8 ####[facility] LABIA [id number] [place] [address] [place] Platelets (Bld) [#/Vol] 43 10*3/uL Low 150-400 C [facility] Comment on above: Order Comment: Speci men Type: BLOOD SPECIMENOrdering Facility: [facility] Address: [address] [place] [address] Result Comment: Resu lts checked and verified.No clot detected. Performed By: #### 5 7021-8 ####[facility] [id number] [place] [address] [place] RBC (Bld) [#/Vol] 2.49 10*6/uL Low 4.20-6.00 [facility] Comment on above: Order Comment: Speci men Type: BLOOD SPECIMENOrdering Facility: [facility] Address: [address] [place] [address] Performed By: #### 5 7021-8 ####[facility] [id number] [place] [address] [place] WBC (Bld) [#/Vol] 5.63 10*3/uL Normal 3.70-11.00 [facility] Comment on above: Order Comment: Speci men Type: BLOOD SPECIMENOrdering Facility: [facility] Address: [address] [place] [address] Performed By: #### 5 7021-8 ####[facility] [id number] [place] [id number] [place] Fibrinogen PPP-mCncon 2024 Fibrinogen Coag (PPP) [Mass/Vol] 119 mg/dL Low 200-400 [facility] Comment on above: Order Comment: Speci men Type: BLOOD SPECIMENOrdering Facility: [facility] Address: [address] [place] [address] Performed By: #### 3 255-7, 62260-5 ####[facility] LABCLIA [id number] [address] [place] [address] [place] Hepatic function 2000 panelo n 11-14-2024 Albumin [Mass/Vol] 2.8 g/dL Low 3.9-4.9 [facility] Comment on above: Order Comment: Speci men Type: BLOOD SPECIMENOrdering Facility: [facility] Address: [address] [place] [address] Performed By: #### 2 4321-2, 24707-4, 2776-, ####[facility] LABCLIA [id number] [place] [id number] [place] ALP [Catalytic activity/Vol] 248 U/L High 38-113 [facility] Comment on above: Order Comment: Speci men Type: BLOOD SPECIMENOrdering Facility: [facility] Address: [address] [place] [address] Performed By: #### 2 4321-2, 85262-3, 2776-, ####[facility] LABIA [id number] [address] [address] [place] ALT [Catalytic activity/Vol] 29 U/L Normal 10-54 [facility] Comment on above: Order Comment: Speci men Type: BLOOD SPECIMENOrdering Facility: [facility] Address: [address] [place] [address] Performed By: #### 2 4321-2, 56247-3, 2776-, ####[facility] LABIA [id number] [address] [address] [place] AST [Catalytic activity/Vol] 62 U/L High 14-40 [facility] Comment on above: Order Comment: Speci men Type: BLOOD SPECIMENOrdering Facility: [facility] Address: [address] [place] [address] Performed By: #### 2 4321-2, 38221-4, 2776-08, ####[facility] LABCLIA [id number] [address] [address] [place] Bilirubin [Mass/Vol] 1.7 mg/dL High 0.2-1.3 [facility] Comment on above: Order Comment: Speci men Type: BLOOD SPECIMENOrdering Facility: [facility] Address: [address] [place] [address] Performed By: #### 2 4321-2, 04086-4, 2776-08, ####[facility] LABIA [id number] [place] [address] [place] Bilirubin.conjugated [Mass/Vol] 1.0 mg/dL High <0.3 [facility] Comment on above: Order Comment: Speci men Type: BLOOD SPECIMENOrdering Facility: [facility] Address: [address] [place] [address] Performed By: #### 2 4321-2, 96752-1, 2776-08, ####[facility] LABIA [id number] [place] [id number] [place] Protein [Mass/Vol] 5.4 g/dL Low 6.3-8.0 [facility] Comment on above: Order Comment: Speci men Type: BLOOD SPECIMENOrdering Facility: [facility] Address: [address] [place] [address] Performed By: #### 2 4321-2, 31069-1, 2776-08, ####[facility] LABIA [id number] [place] [id number] [place] Magnesium SerPl-mCncon 11-14 Magnesium [Mass/Vol] 1.6 mg/dL Low 1.7-2.3 [facility] Comment on above: Order Comment: Speci men Type: BLOOD SPECIMENOrdering Facility: [facility] Address: [address] [place], [place] [address] Performed By: #### 2 4321-2, 44740-7, 2777-1, 37217-3 ####[facility] LABCLIA [id number] [place] [address] [place] PT panel Coag (PPP)on 2024 INR Coag (PPP) [Relative time] 1.8 {INR} High 0.9-1.3 [facility] Comment on above: Order Comment: Speci men Type: BLOOD SPECIMENOrdering Facility: [facility] Address: [address] [place] [address] Result Comment: Sarah min K Antagonist (VKA) Therapeutic Range: INR 2 to 3 (Target INR of 2.5)Note: For patients treated with VKA drugs, such as warfarin, the [place] [employer] 2012 Guideline recommends [...] Chest 2012, 141:7S-47SNishimura RA, et al. [facility] 2017, 70: 252-289 Performed By: #### 3 255-7, 66833-6 ####[facility] LABCLIA [id number] [address] [address] [place] PT Coag (PPP) [Time] 19.2 s High 9.7-13.0 [facility] Comment on above: Order Comment: Ezekiel ramirez Type: BLOOD SPECIMENOrdering Facility: [facility] Address: [address] [place] [address] Performed By: #### 3 255-7, 11048-9 ####[facility] LABCLIA [id number] [place] [id number] [place] Phosphate SerPl-mCncon 11-14 Phosphate [Mass/Vol] 1.9 mg/dL Low 2.7-4.8 [facility] Comment on above: Order Comment: Speci men Type: BLOOD SPECIMENOrdering Facility: [facility] Address: [address] [place] [address] Performed By: #### 2 4321-2, 50541-8, 2777-1, 21025-2 ####[facility] LABCLIA [id number] [place] [address] [place] URINALYSIS, REFLEX MICROSCOP ICon 11-14-2024 Bacteria LM.HPF (Urine sed) [#/Area] Negative Normal Negative [facility] Comment on above: Order Comment: Speci men Type: URINE SPECIMENOrdering Facility: [facility] Address: [address] [place] [address] Performed By: #### L [id number] ####[facility] LABIA [id number] [place] [address] [place] Bilirubin Ql (U) 1+ Abnormal Negative [facility] Comment on above: Order Comment: Speci men Type: URINE SPECIMENOrdering Facility: [facility] Address: [address] [place] [address] Result Comment: Sugg est correlation with clinical findings and serum bilirubin if clinically indicated. Performed By: #### L [id number] ####[facility] LABCLIA [id number] [place] [address] [place] Clarity (Unsp spec) Cloudy Abnormal Clear [facility] Comment on above: Order Comment: Speci men Type: URINE SPECIMENOrdering Facility: [facility] Address: [address] [place] [address] Performed By: #### L [id number] ####[facility] LABCLIA [id number] [place] [phone] [place] Color (U) Dickson Abnormal Yellow [facility] Comment on above: Order Comment: Speci men Type: URINE SPECIMENOrdering Facility: [facility] Address: [address] [place] [address] Performed By: #### L [id number] ####[facility] LABCLIA [id number] [place] [address] [place] Epithelial cells LM.HPF (Urine sed) [#/Area] None Seen Normal [facility] Comment on above: Order Comment: Speci men Type: URINE SPECIMENOrdering Facility: [facility] Address: [address] [place] [address] Performed By: #### L [id number] ####[facility] LABCLIA [id number] [address] [place] Glucose Test strip (U) [Mass/Vol] Negative Normal Negative [facility] Comment on above: Order Comment: Speci men Type: URINE SPECIMENOrdering Facility: [facility] Address: [address] [place] [address] Performed By: #### L [id number] ####[facility] LABCLIA [id number] [place] [address] [place] Hemoglobin Ql (U) 3+ Abnormal Negative [facility] Comment on above: Order Comment: Speci men Type: URINE SPECIMENOrdering Facility: [facility] Address: [address] [place] [address] Performed By: #### L [id number] ####[facility] LABCLIA [id number] [place] [id number] [place] Hyaline casts (Urine sed) [#/Area] 0 /[LPF] Normal 0 /LPF [facility] Comment on above: Order Comment: Speci men Type: URINE SPECIMENOrdering Facility: [facility] Address: [address] [place] [address] Performed By: #### L [id number] ####[facility] LABCLIA [id number] [address] [place] [address] [place] Ketones Ql (U) Negative Normal Negative [facility] Comment on above: Order Comment: Speci men Type: URINE SPECIMENOrdering Facility: [facility] Address: [address] [place] [address] Performed By: #### L [id number] ####[facility] LABCLIA [id number] [address] [place] [address] [place] Leukocyte esterase Test strip Ql (U) 3+ Abnormal Negative [facility] Comment on above: Order Comment: Speci men Type: URINE SPECIMENOrdering Facility: [facility] Address: [address] [place] [address] Performed By: #### L [id number] ####[facility] LABCLIA [id number] [place] [address] [place] Nitrite Ql (U) Negative Normal Negative [facility] Comment on above: Order Comment: Speci men Type: URINE SPECIMENOrdering Facility: [facility] Address: [address] [place] [address] Performed By: #### L [id number] ####[facility] LABCLIA [id number] [place] [id number] [place] pH (U) 6.0 [pH] Normal <8.5 [facility] Comment on above: Order Comment: Speci men Type: URINE SPECIMENOrdering Facility: [facility] Address: [address] [place], [place] [address] Performed By: #### L [id number] ####[facility] LABCLIA [id number] [place] [id number] [place] Protein (U) [Mass/Vol] 2+ Abnormal Negative [facility] Comment on above: Order Comment: Speci men Type: URINE SPECIMENOrdering Facility: [facility] Address: [address] [place] [address] Performed By: #### L [id number] ####[facility] LABIA [id number] [place] [address] [place] RBC LM.HPF (Urine sed) [#/Area] /[HPF] Abnormal 0-2 /HPF [facility] Comment on above: Order Comment: Speci men Type: URINE SPECIMENOrdering Facility: [facility] Address: [address] [place] [address] Performed By: #### L [id number] ####[facility] [id number] [place] [address] [place] Specific gravity (U) [Rel density] 1.017 Normal 1.005-1.030 [facility] Comment on above: Order Comment: Speci men Type: URINE SPECIMENOrdering Facility: [facility] Address: [address] [place] [address] Performed By: #### L [id number] ####[facility] [id number] [place] [address] [place] Urobilinogen Ql (U) 0.2 EU/dL Normal 0.2-1.0 EU/dL [facility] Comment on above: Order Comment: Speci men Type: URINE SPECIMENOrdering Facility: [facility] Address: [address] [place] [address] Performed By: #### L [id number] ####[facility] LABIA [id number] [place] [address] [place] WBC LM.HPF (Urine sed) [#/Area] /[HPF] Abnormal 0-5 /HPF [facility] Comment on above: Order Comment: Speci men Type: URINE SPECIMENOrdering Facility: [facility] Address: [address] [place] [address] Performed By: #### L [id number] ####[facility] LABIA [id number] [place] [address] [place] Yeast.budding LM.HPF (Urine sed) [#/Area] Present Abnormal None Seen [facility] Comment on above: Order Comment: Speci men Type: URINE SPECIMENOrdering Facility: [facility] Address: [address] [place] [address] Performed By: #### L [id number] ####[facility] LABCLIA [id number] [place] [address] [place] 25(OH)D3 [facility]-ncon 2024 25-hydroxyvitamin D3 [Mass/Vol] 16.2 ng/mL Low 31.0-80.0 [facility] Comment on above: Order Comment: Speci men Type: BLOOD SPECIMENOrdering Facility: [facility] Address: [address] [place] [address] Performed By: #### 7 852-7, MEASLG, VZVG2, 1988-10 ####[facility] LABIA [id number] [place] [address] [place] A-Tocopherol Vit E [facility]-n con 11-13-2024 Alpha tocopherol [Mass/Vol] 3.3 mg/L Low 6.0-23.0 [facility] Comment on above: Order Comment: Speci men Type: BLOOD SPECIMENOrdering Facility: [facility] Address: [address] [place] [address] Performed By: #### 2 923-1, 1823-4 ####[facility] LABIA [id number] [place] [address] [place] ALPHA-1 ANTITRYPSIN GENOon 0 11-13-2024 HA1AT REVIEWED BY [facility] Comment on above: Order Comment: Speci men Type: BLOOD SPECIMENOrdering Facility: [facility] Address: [address] [place] [address] Result Comment: Alph a-1 Antitrypsin GenotypingLaboratory Accession Number: [id number]:No Variant Detected in SERPINA1 (PI*MM)Interpretation:DNA testing indicates [...] the two mostcommon pathogenic variants: S (c.863A>T, p.Qem062Hvn, g.74559918), Z(c.1096G>A, p.Fsp516Mfh, g.45200024), and the rarer variants: F(c.739C>T, p.Tda546Wfc, g.86743047), I (c.187C>T, p.Qot63Fts,g.29642991).Limitations:This Laboratory Developed Test (LDT) is designed to [...] was developed and its performance characteristics determinedby [facility]'s Pathology and Laboratory Medicine Department. Ithas not been cleared or approved by the FDA. [facility] is regulated under CLIAas certified to perform high-complexity testing. This test is used forclinical purposes. It should not be regarded as investigational or forresearch.Test performed at [facility], [address] [facility], [place], [place]. CLIA Number: [id number]:1) Kait HIRSCH, Samir G, Essence ML, Ilan M, Kai CE, K,Jadyn DK, Princess SL, Suman GOMEZ, Ivania OliveiraK, Haider C, Renée J.The Diagnosis and Management of Alpha-1 Antritrypsin Deficiency inthe Adult. Chronic Obstr Pulm Dis. 2016 Jan 07;3:668-682.2) Carolynt JA, Linsey ON, Rachele ER, Khushi DG. a1-Antitrypsinphenotypes and associated serum protein concentrations in a largeclinical population. Chest.2013 Nov;143(4):1000-8.3) Elmo A, Toña NA, Brad CR, Jennifer FJ, Salvador SJ, Nicole. Molecular characterisation of three nkwsb-1-tngdgjpxnhc deficiencyvariants: proteinase inhibitor (Pi) nullcardiff (Dso351----Isl);PiMmalton (Whm41----rdhzenct) and PiI (Upc45----Nhv). Hum Trisha. 1988Dec;84(1):55-8.4) Flor WHITFIELD and Kait HIRSCH. Clinical practice.Alpha1-antitrypsin deficiency. N Engl J Med. 2008;360(40)2888-07.5) Margot BETANCOURT, Kwame F, Prakash HIRSCH. The significance of the F variantof oiprl-3-sahyikfxtlc and unique case report of a PiFF homozygote.[facility] Pulm Med. 2013Mar 10;14:132.6) Ivania MARIE, Elena SHETTY, and Jaziel Carlson. Alpha-1 AntitrypsinDeficiency. 2005May 30 [Updated 2016August 22]. In: Juanito HIRSCH, Nemesio Jimenez TO, et al., editors. Luis Fernando [Internet]. [place] ([place]):[facility], [place]; 7773-5577. Available from:http://www.ncbi.nlm.nih.gov/books/BHC4463/Interpretation performed at remote location (R0A1) by Fifi España MD Performed By: #### H A1AT ####[facility] LIMSCLIA [id number] [place] [address] [place] ANES POSTPROC EVALon 025 ANES POSTPROC EVAL Normal [facility] ANES PRE-OPon 11-13-2024 ANES PRE-OP Normal [facility] Alpha tocopherol [Mass/Vol]o n 11-13-2024 Beta+gamma tocopherol [Mass/Vol] 0.6 mg/L Normal 0.3-3.2 [facility] Comment on above: Order Comment: Speci men Type: BLOOD SPECIMENOrdering Facility: [facility] Address: [facility] [place] [address] Result Comment: This test was developed, and its performance characteristics determined by the [facility] Department of Pathology and Laboratory Medicine. It has not been cleared or approved by the FDA. The [facility] Department of Pathology and Laboratory Medicine is regulated under CLIA as qualified to perform high-complexity testing. This test is used for clinical purposes. It should not be regarded as investigational or for research. Performed By: #### 2 923-1, 1823-4 ####[facility] LABCLIA [id number] [place] [address] [place] Basic metabolic 2000 panelon 11-13-2024 Anion gap [Moles/Vol] 9 mmol/L Normal 8-15 [facility] Comment on above: Order Comment: Speci men Type: BLOOD SPECIMENOrdering Facility: [facility] Address: [address] [place], [place] [address] Performed By: #### 2 4321-2, 44667-2, 89520-2, 39352-3 ####[facility] LABCLIA [id number] [address] [address] [place] Calcium [Mass/Vol] 9.1 mg/dL Normal 8.5-10.2 [facility] Comment on above: Order Comment: Speci men Type: BLOOD SPECIMENOrdering Facility: [facility] Address: [address] [place], [place] [address] Performed By: #### 2 4321-2, 69356-8, 99559-3, 51725-2 ####[facility] LABIA [id number] [place] [id number] [place] Chloride [Moles/Vol] 99 mmol/L Normal 98-107 [facility] Comment on above: Order Comment: Speci men Type: BLOOD SPECIMENOrdering Facility: [facility] Address: [address] [place] [address] Performed By: #### 2 4321-2, 49915-0, 41264-8, 93025-6 ####[facility] LABIA [id number] [place] [id number] [place] CO2 [Moles/Vol] 16 mmol/L Low 22-30 [facility] Comment on above: Order Comment: Speci men Type: BLOOD SPECIMENOrdering Facility: [facility] Address: [address] [place], [place] [address] Performed By: #### 2 4321-2, 58832-3, 60726-5, 77928-7 ####[facility] LABIA [id number] [address] [address] [place] Creatinine [Mass/Vol] 1.10 mg/dL Normal 0.73-1.22 [facility] Comment on above: Order Comment: Speci men Type: BLOOD SPECIMENOrdering Facility: [facility] Address: [address] [place] [address] Performed By: #### 2 4321-2, 91628-5, 84732-8, 64206-7 ####[facility] LABCLIA [id number] [place] [phone] [place] Creatinine and Glomerular filtration rate.predicted panel (S/P/Bld) 78 mL/min/1.73m??? Normal >=60 [facility] Comment on above: Order Comment: Ezekiel ramirez Type: BLOOD SPECIMENOrdering Facility: [facility] Address: [address] [place] [address] Result Comment: Patric mated Glomerular Filtration Rate [...] actual GFR. Performed By: #### 2 4321-2, 38094-9, 87695-8, 27117-0 ####[facility] LABIA [id number] [place] [id number] [place] Glucose [Mass/Vol] 278 mg/dL High 74-99 [facility] Comment on above: Order Comment: Ezekiel ramirez Type: BLOOD SPECIMENOrdering Facility: [facility] Address: [address] [place] [address] Result Comment: The [place] [employer] (ADA) provides guidance for cutoff [...] Standards of Medical Care in Diabetes 2016, [place] [employer]. Diabetes Care. 2016.39(Suppl 1). Performed By: #### 2 4321-2, 68025-7, 24625-2, 83088-9 ####[facility] LABCLIA [id number] [address] [address] [place] Potassium [Moles/Vol] 4.1 mmol/L Normal 3.7-5.1 [facility] Comment on above: Order Comment: Speci men Type: BLOOD SPECIMENOrdering Facility: [facility] Address: [address] [place] [address] Performed By: #### 2 4321-2, 05861-7, 05168-4, 70079-6 ####[facility]IA [id number] [place] [id number] [place] Sodium [Moles/Vol] 124 mmol/L Low 136-144 [facility] Comment on above: Order Comment: Speci men Type: BLOOD SPECIMENOrdering Facility: [facility] Address: [address] [place] [address] Performed By: #### 2 4321-2, 76784-5, 55999-8, 17624-8 ####[facility]IA [id number] [place] [id number] [place] Urea nitrogen [Mass/Vol] 20 mg/dL Normal 9-24 [facility] Comment on above: Order Comment: Speci men Type: BLOOD SPECIMENOrdering Facility: [facility] Address: [address] [place] [address] Performed By: #### 2 4321-2, 17211-0, 54930-2, 59619-3 ####[facility] LABIA [id number] [address] [address] [place] CBC W Auto Differential pane l (Bld)on 11-13-2024 Basophils (Bld) [#/Vol] 10*3/uL Normal <0.11 C [facility] Comment on above: Order Comment: Speci men Type: BLOOD SPECIMENOrdering Facility: [facility] Address: [address] [place] [address] Performed By: #### 5 7021-8 ####[facility] LABCLIA [id number] [place] [address] [place] Basophils/100 WBC (Bld) 0.4 % Normal [facility] Comment on above: Order Comment: Speci men Type: BLOOD SPECIMENOrdering Facility: [facility] Address: [address] [place] [address] Performed By: #### 5 7021-8 ####[facility] LABCLIA [id number] [place] [address] [place] Differential cell count method Nom (Bld) Auto Normal [facility] Comment on above: Order Comment: Speci men Type: BLOOD SPECIMENOrdering Facility: [facility] Address: [address] [place] [address] Performed By: #### 5 7021-8 ####[facility] LABCLIA [id number] [place] [address] [place] Eosinophils (Bld) [#/Vol] 0.18 10*3/uL Normal <0.46 [facility] Comment on above: Order Comment: Speci men Type: BLOOD SPECIMENOrdering Facility: [facility] Address: [address] [place] [address] Performed By: #### 5 7021-8 ####[facility] LABCLIA [id number] [place] [address] [place] Eosinophils/100 WBC (Bld) 3.3 % Normal [facility] Comment on above: Order Comment: Speci men Type: BLOOD SPECIMENOrdering Facility: [facility] Address: [address] [place] [address] Performed By: #### 5 7021-8 ####[facility] LABCLIA [id number] [place] [address] [place] Erythrocyte distribution width (RBC) [Ratio] 17.0 % High 11.5-15.0 [facility] Comment on above: Order Comment: Speci men Type: BLOOD SPECIMENOrdering Facility: [facility] Address: [address] [place] [address] Performed By: #### 5 7021-8 ####[facility] LABCLIA [id number] [place] [address] [place] Hematocrit (Bld) [Volume fraction] 21.6 % Low 39.0-51.0 [facility] Comment on above: Order Comment: Speci men Type: BLOOD SPECIMENOrdering Facility: [facility] Address: [address] [place] [address] Performed By: #### 5 7021-8 ####[facility] LABCLIA [id number] [place] [address] [place] Hemoglobin (Bld) [Mass/Vol] 7.4 g/dL Low 13.0-17.0 [facility] Comment on above: Order Comment: Speci men Type: BLOOD SPECIMENOrdering Facility: [facility] Address: [address] [place] [address] Performed By: #### 5 7021-8 ####[facility] LABCLIA [id number] [place] [address] [place] Immature granulocytes (Bld) [#/Vol] 0.04 10*3/uL Normal <0.10 [facility] Comment on above: Order Comment: Speci men Type: BLOOD SPECIMENOrdering Facility: [facility] Address: [address] [place] [address] Performed By: #### 5 7021-8 ####[facility] LABCLIA [id number] [place] [address] [place] Immature granulocytes/100 WBC (Bld) 0.7 % Normal [facility] Comment on above: Order Comment: Speci men Type: BLOOD SPECIMENOrdering Facility: [facility] Address: [address] [place] [address] Performed By: #### 5 7021-8 ####[facility] LABCLIA [id number] [place] [address] [place] Lymphocytes (Bld) [#/Vol] 0.64 10*3/uL Low 1.00-4.00 [facility] Comment on above: Order Comment: Speci men Type: BLOOD SPECIMENOrdering Facility: [facility] Address: [address] [place] [address] Performed By: #### 5 7021-8 ####[facility] LABIA [id number] [place] [address] [place] Lymphocytes/100 WBC (Bld) 11.6 % Normal [facility] Comment on above: Order Comment: Speci men Type: BLOOD SPECIMENOrdering Facility: [facility] Address: [address] [place] [address] Performed By: #### 5 7021-8 ####[facility] LABIA [id number] [place] [address] [place] MCH (RBC) [Entitic mass] 31.8 pg Normal 26.0-34.0 [facility] Comment on above: Order Comment: Speci men Type: BLOOD SPECIMENOrdering Facility: [facility] Address: [address] [place] [address] Performed By: #### 5 7021-8 ####[facility] LABIA [id number] [place] [id number] [place] MCHC (RBC) [Mass/Vol] 34.3 g/dL Normal 30.5-36.0 [facility] Comment on above: Order Comment: Speci men Type: BLOOD SPECIMENOrdering Facility: [facility] Address: [address] [place] [address] Performed By: #### 5 7021-8 ####[facility] LABCLIA [id number] [address] [place] [address] [place] MCV (RBC) [Entitic vol] 92.7 fL Normal 80.0-100.0 C [facility] Comment on above: Order Comment: Speci men Type: BLOOD SPECIMENOrdering Facility: [facility] Address: [address] [place] [address] Performed By: #### 5 7021-8 ####[facility] LABCLIA [id number] [address], [place] [address] [place] Monocytes (Bld) [#/Vol] 0.68 10*3/uL Normal <0.87 [facility] Comment on above: Order Comment: Speci men Type: BLOOD SPECIMENOrdering Facility: [facility] Address: [address] [place] [address] Performed By: #### 5 7021-8 ####[facility] LABCLIA [id number] [place] [address] [place] Monocytes/100 WBC (Bld) 12.4 % Normal C [facility] Comment on above: Order Comment: Speci men Type: BLOOD SPECIMENOrdering Facility: [facility] Address: [address] [place] [address] Performed By: #### 5 7021-8 ####[facility] LABCLIA [id number] [place] [address] [place] Neutrophils (Bld) [#/Vol] 3.94 10*3/uL Normal 1.45-7.50 [facility] Comment on above: Order Comment: Speci men Type: BLOOD SPECIMENOrdering Facility: [facility] Address: [address] [place] [address] Performed By: #### 5 7021-8 ####[facility] LABCLIA [id number] [place] [id number] [place] Neutrophils/100 WBC (Bld) 71.6 % Normal [facility] Comment on above: Order Comment: Speci men Type: BLOOD SPECIMENOrdering Facility: [facility] Address: [address] [place] [address] Performed By: #### 5 7021-8 ####[facility] LABCLIA [id number] [address] [address] [place] Nucleated RBC (Bld) [#/Vol] 10*3/uL Normal <0.01 [facility] Comment on above: Order Comment: Speci men Type: BLOOD SPECIMENOrdering Facility: [facility] Address: [address] [place] [address] Performed By: #### 5 7021-8 ####[facility] LABIA [id number] [place] [address] [place] Nucleated RBC/100 WBC (Bld) [Ratio] 0.0 /100 WBC Normal [facility] Comment on above: Order Comment: Speci men Type: BLOOD SPECIMENOrdering Facility: [facility] Address: [address] [place] [address] Performed By: #### 5 7021-8 ####[facility] LABIA [id number] [place] [address] [place] Platelet mean volume (Bld) [Entitic vol] 11.7 fL Normal 9.0-12.7 [facility] Comment on above: Order Comment: Speci men Type: BLOOD SPECIMENOrdering Facility: [facility] Address: [address] [place] [address] Performed By: #### 5 7021-8 ####[facility] LABIA [id number] [place] [address] [place] Platelets (Bld) [#/Vol] 38 10*3/uL Low 150-400 C [facility] Comment on above: Order Comment: Speci men Type: BLOOD SPECIMENOrdering Facility: [facility] Address: [address] [place] [address] Result Comment: Resu lts checked and verified.No clot detected. Performed By: #### 5 7021-8 ####[facility] LABCLIA [id number] [place] [address] [place] RBC (Bld) [#/Vol] 2.33 10*6/uL Low 4.20-6.00 [facility] Comment on above: Order Comment: Speci men Type: BLOOD SPECIMENOrdering Facility: [facility] Address: [address] [place] [address] Performed By: #### 5 7021-8 ####[facility] LABIA [id number] [place] [address] [place] WBC (Bld) [#/Vol] 5.50 10*3/uL Normal 3.70-11.00 [facility] Comment on above: Order Comment: Speci men Type: BLOOD SPECIMENOrdering Facility: [facility] Address: [address] [place] [address] Performed By: #### 5 7021-8 ####[facility] LABIA [id number] [place] [address] [place] CMV IgG Qnon 11-13-2024 CMV IGG QUAL Negative Normal Negative [facility] Comment on above: Order Comment: Speci men Type: BLOOD SPECIMENOrdering Facility: [facility] Address: [address] [place] [address] Result Comment: No s erological evidence of past exposure to Cytomegalovirus. Cannot exclude recent infection if the specimen collected within 4-6 weeks after infection. Performed By: #### 7 852-7, MEASLG, VZVG2, 1988- ####[facility] LABIA [id number] [place] [address] [place] CMV IgG SerPl-aCncon 025 CMV IgG Qn 0.37 U/mL Normal [facility] Comment on above: Order Comment: Speci men Type: BLOOD SPECIMENOrdering Facility: [facility] Address: [address] [place] [address] Result Comment: The magnitude of the measured result is not indicative of the amount of antibody present.U/mL values are interpreted as follows:Negative <0.6Equivocal 0.6 to <0.70Positive >=0.70 Performed By: #### 7 852-7, MEASLG, VZVG2, 1989-3 ####[facility] LABCLIA [id number] [place] [address] [place] CONSULT PROGon 11-13-2024 CONSULT PROG Normal [facility] CYTOLOGY NON-GYNon 5 AP DISCLAIMER Normal [facility] Comment on above: Order Comment: Speci men Type: FLUID SPECIMENOrdering Facility: [facility] Address: [address] [place] [address] Result Comment: Shellie pugh Developed Test (LDT) Disclaimer:Performance characteristics of immunohistochemical, immunofluorescent, and chromogenic in-situ hybridization tests have been determined by the performing laboratory within [facility] Pathology and Laboratory Medicine Department ([facility], [facility], [facility], [facility], [facility], [facility], or [facility]) in a manner consistent with CLIA [...] Performed By: #### C YTONON ####[facility] LABCLIA [id number] [place] [id number] [place] CASE REPORT Normal [facility] Comment on above: Order Comment: Speci men Type: FLUID SPECIMENOrdering Facility: [facility] Address: [address] [place] [address] Result Comment: [facility] Cytology Report Case: [id number] Provider: Deb Fox MD Collected: 11/13/2024 02:46 PMOrdering Location: [place] [address] Received: 11/15/2024 05:01 AMPathologist: Foster Newton MDSpecimen: Urine, Midstream Performed By: #### C YTONON ####[facility] LABCLIA [id number] [id number] [place] [address] [place] CLINICAL HISTORY Staghorn calculi, s/ p L sided stenting with hematuria Normal [facility] Comment on above: Order Comment: Speci men Type: FLUID SPECIMENOrdering Facility: [facility] Address: [address] [place] [address] Performed By: #### C YTONON ####[facility] LABCLIA [id number] [address] DIAGNOSIS COMMENT Normal [facility] Comment on above: Order Comment: Speci men Type: FLUID SPECIMENOrdering Facility: [facility] Address: [address] [place] [address] Result Comment: A. F ungal yeast forms are seen, morphologically consistent with Mary species. Clinical correlation is suggested. Performed By: #### C YTONON ####[facility] LABCLIA [id number] [address] FINAL DIAGNOSIS Normal [facility] Comment on above: Order Comment: Speci men Type: FLUID SPECIMENOrdering Facility: [facility] Address: [address] [place] [address] Result Comment: A - Urine, Voided: Negative for high-grade urothelial carcinoma. Abundant acute inflammation (see comment). at 1141 EDT Performed By: #### C YTONON ####[facility] LABCLIA [id number] [place] [id number] [place] FINAL PERFORMING LAB Normal [facility] Comment on above: Order Comment: Speci men Type: FLUID SPECIMENOrdering Facility: [facility] Address: [address] [place] [address] Result Comment: Tech nical component, therapist's assistant screening performed at: [facility], [address] [place] [address] CLIA: [id number] interpretation performed at: [facility], [address] [place] [address] CLIA# [id number] Director: Titi Voss MD Performed By: #### C YTONON ####[facility] LABCLIA [id number] [place] [address] [place] GROSS DESCRIPTION Normal [facility] Comment on above: Order Comment: Speci men Type: FLUID SPECIMENOrdering Facility: [facility] Address: [address] [place] [address] Result Comment: A. U rine, Friinpynw51 cc cloudy lexis fluid . ThinPrep prepared. Performed By: #### C YTONON ####[facility] LABCLIA [id number] [place] [address] [place] EBV capsid IgG Qn (S)on 11-02 EBV VCA IGG, QUAL Positive Abnormal Negative [facility] Comment on above: Order Comment: Speci men Type: BLOOD SPECIMENOrdering Facility: [facility] Address: [address] [place] [address] Result Comment: The result suggests recent or past EBV infection. The final interpretation should be done in the context of other EBV serology panel results. Performed By: #### 8 039-0, 7885-7 ####[facility] LABCLIA [id number] [place] [address] [place] Fibrinogen PPP-mCncon 2024 Fibrinogen Coag (PPP) [Mass/Vol] 94 mg/dL Low 200-400 [facility] Comment on above: Order Comment: Speci men Type: BLOOD SPECIMENOrdering Facility: [facility] Address: [address] [place] [address] Result Comment: Samp le checked for clot. Performed By: #### 3 4528-0, 3255-7 ####[facility] LABCLIA [id number] [place] [address] [place] HBV core Ab Ser Qlon 025 HBV core Ab Ql (S) Negative Normal Negative [facility] Comment on above: Order Comment: Speci men Type: BLOOD SPECIMENOrdering Facility: [facility] Address: [address] [place] [address] Result Comment: No e vidence of current or past infection with Hepatitis B virus. Should recent infection be suspected, repeat testing may be considered 3-4 weeks after this draw. Performed By: #### 3 1201-7, 78840-1, [facility], 5195-3, 24841-7 ####[facility] LABCLIA [id number] [address] [place] HBV surface Ab Ql (S)on 11-02 HBV surface Ab Qn (S) <8.00 Normal [facility] Comment on above: Order Comment: Speci men Type: BLOOD SPECIMENOrdering Facility: [facility] Address: [address] [place] [address] Result Comment: <8 m IU/mL: No serological evidence of immunity to Hepatitis B Virus.>/= 8 to <12 mIU/mL: No serological evidence of immunity to Hepatitis B Virus.>/= 12 mIU/mL: Consistent with serological evidence of immunity to Hepatitis B Virus. Performed By: #### 3 1201-7, 28798-8, AHAVG, 5195-3, 05327-0 ####[facility] LABCLIA [id number] [address] [place] HBV surface Ab Ser Qlon 11-02 HBV surface Ab Ql (S) Negative Normal [facility] Comment on above: Order Comment: Speci men Type: BLOOD SPECIMENOrdering Facility: [facility] Address: [address] [place] [address] Result Comment: No s erological evidence of immunity to Hepatitis B Virus. Performed By: #### 3 1201-7, 12741-7, AHAVG, 5194-3, 35548-3 ####[facility] LABCLIA [id number] [place] [address] [place] HBV surface Ag Ser Qlon 11-02 HBV surface Ag Ql (S) Negative Normal Negative [facility] Comment on above: Order Comment: Speci men Type: BLOOD SPECIMENOrdering Facility: [facility] Address: [address] [place] [address] Performed By: #### 3 1201-7, 62509-8, AHAVG, 3, 17402-6 ####[facility] LABIA [id number] [address] [place] HCV Ab Ser Qlon 11-13-2024 HCV Ab Ql (S) Negative Normal Negative [facility] Comment on above: Order Comment: Speci men Type: BLOOD SPECIMENOrdering Facility: [facility] Address: [address] [place] [address] Result Comment: The result suggests no evidence of infection with Hepatitis C virus. Should recent infection be suspected, repeat testing may be considered 4-6 weeks after this draw. Performed By: #### 1 6128-1 ####[facility] LABIA [id number] [place] [address] [place] HEPATITIS A ANTIBODY, IGGon 11-13-2024 HAV IgG Ql (S) Negative Normal [facility] Comment on above: Order Comment: Speci [facility] Type: BLOOD SPECIMENOrdering Facility: [facility] Address: [address] [place] [address] Result Comment: No s erological evidence of past exposure to hepatitis A virus or hepatitis A vaccination. Should recent infection be suspected, repeat testing is suggested 3-4 weeks after this draw. Performed By: #### 3 1201-7, 75023-4, AHAVG, 5194-3, 54417-9 ####[facility] LABCLIA [id number] [address] [address] [place] Performed By: #### 7 3752-8, JEREMYVGSHMUEL MUMPSG ####[facility] LABCLIA [id number] [address] [place] [address] [place] HIV 1+2 Ab IA Qlon 5 HIV 1 and 2 Ab IA.rapid Nom (S/P/Bld) Normal [facility] Comment on above: Order Comment: Speci men Type: BLOOD SPECIMENOrdering Facility: [facility] Address: [address] [place] [address] Result Comment: Test not indicated. Performed By: #### 3 1201-7, 20148-5, AHAVG, 5195-3, 25964-8 ####[facility] LABIA [id number] [place] [address] [place] HIV 1+2 Ab+HIV1 p24 Ag IA Ql Non-Reactive Normal Nonreactive [facility] Comment on above: Order Comment: Speci men Type: BLOOD SPECIMENOrdering Facility: [facility] Address: [address] [place] [address] Performed By: #### 3 1201-7, 30660-3, AHAVG, 5195-3, 49900-6 ####[facility] LABIA [id number] [place] [address] [place] HIV immunoassay testing algorithm interpretation (S/P/Bld) [Interp] Normal [facility] Comment on above: Order Comment: Speci men Type: BLOOD SPECIMENOrdering Facility: [facility] Address: [address] [place] [address] Result Comment: No e vidence of HIV-1 [...] or diagnoses. Performed By: #### 3 1201-7, 91348-7, AHAVG, 5195-3, 70804-4 ####[facility] LABCLIA [id number] [place] [address] [place] Hepatic function 2000 panelo n 11-13-2024 Albumin [Mass/Vol] 2.8 g/dL Low 3.9-4.9 [facility] Comment on above: Order Comment: Speci men Type: BLOOD SPECIMENOrdering Facility: [facility] Address: [address] [place] [address] Performed By: #### 2 4321-2, 44375-8, 47904-9, 59007-7 ####[facility] LABIA [id number] [place] [address] [place] ALP [Catalytic activity/Vol] 225 U/L High 38-113 [facility] Comment on above: Order Comment: Speci men Type: BLOOD SPECIMENOrdering Facility: [facility] Address: [address] [place] [address] Performed By: #### 2 4321-2, 29521-7, 10633-3, 34517-8 ####[facility] LABIA [id number] [place] [address] [place] ALT [Catalytic activity/Vol] 22 U/L Normal 10-54 [facility] Comment on above: Order Comment: Speci men Type: BLOOD SPECIMENOrdering Facility: [facility] Address: [address] [place] [address] Performed By: #### 2 4321-2, 08561-6, 08308-4, 48914-7 ####[facility] LABCLIA [id number] [place] [id number] [place] AST [Catalytic activity/Vol] 36 U/L Normal 14-40 [facility] Comment on above: Order Comment: Speci men Type: BLOOD SPECIMENOrdering Facility: [facility] Address: [address] [place] [address] Performed By: #### 2 4321-2, 79394-2, 49276-0, 32568-7 ####[facility] LABCLIA [id number] [place] [address] [place] Bilirubin [Mass/Vol] 1.8 mg/dL High 0.2-1.3 [facility] Comment on above: Order Comment: Speci men Type: BLOOD SPECIMENOrdering Facility: [facility] Address: [address] [place] [address] Performed By: #### 2 4321-2, 28066-5, 94323-0, 81194-2 ####[facility] LABCLIA [id number] [place] [address] [place] Bilirubin.conjugated [Mass/Vol] 0.9 mg/dL High <0.3 [facility] Comment on above: Order Comment: Speci men Type: BLOOD SPECIMENOrdering Facility: [facility] Address: [address] [place] [address] Performed By: #### 2 4321-2, 03513-5, 45881-4, 21314-9 ####[facility] LABCLIA [id number] [place] [id number] [place] Protein [Mass/Vol] 5.2 g/dL Low 6.3-8.0 [facility] Comment on above: Order Comment: Speci men Type: BLOOD SPECIMENOrdering Facility: [facility] Address: [address] [place] [address] Performed By: #### 2 4321-2, 81094-7, 47417-0, 62409-5 ####[facility] LABCLIA [id number] [place] [address] [place] LIVER REC INIT W/Uon 025 ALLOGEN RESULTS TO FOLLOW See Allogen report to follow Normal [facility] Comment on above: Order Comment: Speci men Type: BLOOD SPECIMENOrdering Facility: [facility] Address: [address] [place] [address] Performed By: #### L RIPW ####[facility]IESCLIA [id number] [place] [address] [place] LPa SerPl-mCncon 11-13-2024 Lipoprotein a [Mass/Vol] mg/dL Normal <30 [facility] Comment on above: Order Comment: Speci men Type: BLOOD SPECIMENOrdering Facility: [facility] Address: [address] [place] [address] Performed By: #### 1 0835-7 ####[facility] LABCLIA [id number] [address] [place] Lipid 1996 panelon 5 Cholesterol [Mass/Vol] 52 mg/dL Normal <200 [facility] Comment on above: Order Comment: Speci men Type: BLOOD SPECIMENOrdering Facility: [facility] Address: [address] [place] [address] Result Comment: <200 mg/dL, Desirable 200-239 mg/dL, Borderline high>239 mg/dL, High Performed By: #### 2 4321-2, 88403-7, 48012-9, 59333-4 ####[facility] LABCLIA [id number] [address] [place] Cholesterol in HDL [Mass/Vol] 17 mg/dL Low >39 [facility] Comment on above: Order Comment: Speci men Type: BLOOD SPECIMENOrdering Facility: [facility] Address: [address] [place] [address] Result Comment: 40-5 9 mg/dL, Acceptable>59 mg/dL, High: Negative risk factor for coronary heart disease<40 mg/dL, Low: Positive risk factor for coronary heart disease Performed By: #### 2 4321-2, 57719-9, 67132-5, 90224-8 ####[facility] LABCLIA [id number] [address] [address] [place] Cholesterol in LDL [Mass/Vol] 26 mg/dL Normal <100 [facility] Comment on above: Order Comment: Ezekiel ramirez Type: BLOOD SPECIMENOrdering Facility: [facility] Address: [address] [place] [address] Result Comment: <100 mg/dL, Optimal 100-129 mg/dL, Near optimal/above optimal 130-159 mg/dL, Borderline high 160-189 mg/dL, High>189 mg/dL, Very highSecondary prevention optimal LDL Cholesterol levels are recommended to be < 70 mg/dL Performed By: #### 2 4321-2, 21926-8, 81778-4, 15762-8 ####[facility] LABCLIA [id number] [place] [address] [place] Cholesterol in LDL/Cholesterol in HDL [Mass ratio] 1.53 {ratio} Normal <2.54 [facility] Comment on above: Order Comment: Ezekiel ramirez Type: BLOOD SPECIMENOrdering Facility: [facility] Address: [address] [place] [address] Result Comment: Refe rence:1. National Cholesterol Education Program ATP III Guideline At-A-Glance Quick Desk Reference: National Heart, Lung, and Blood [place]. National Institutes of Health. 2001: NIH Publication No. 01-3305.2. An International Atherosclerosis Society position paper: global recommendations for the management of dyslipidemia: executive summary, Atherosclerosis. 2014: 232(2):410-413. Performed By: #### 2 4321-2, 35386-2, 51408-7, 51715-1 ####[facility] LABCLIA [id number] [address] [address] [place] Cholesterol in VLDL [Mass/Vol] 9 mg/dL Normal <30 [facility] Comment on above: Order Comment: Speci men Type: BLOOD SPECIMENOrdering Facility: [facility] Address: [address] [place] [address] Performed By: #### 2 4321-2, 80397-2, 83460-2, 67156-1 ####[facility] LABCLIA [id number] [address] [address] [place] Cholesterol non HDL [Mass/Vol] 35 mg/dL Normal <130 [facility] Comment on above: Order Comment: Speci men Type: BLOOD SPECIMENOrdering Facility: [facility] Address: [address] [place] [address] Result Comment: <130 mg/dL, Optimal 130-159 mg/dL, Near optimal/above optimal 160-189 mg/dL, Borderline high 190-219 mg/dL, High>219 mg/dL, Very highSecondary prevention optimal non HDL Cholesterol levels are recommended to be <100 mg/dL Performed By: #### 2 4321-2, 22076-5, 27618-3, 66674-0 ####[facility] LABCLIA [id number] [address] [address] [place] Cholesterol.total/Donna sterol in HDL [Mass ratio] 3.06 {ratio} Normal <5.10 [facility] Comment on above: Order Comment: Speci men Type: BLOOD SPECIMENOrdering Facility: [facility] Address: [address] [place] [address] Performed By: #### 2 4321-2, 08239-1, 73033-4, 45687-6 ####[facility] LABCLIA [id number] [address] [address] [place] FASTING TIME 4 hrs Normal [facility] Comment on above: Order Comment: Speci men Type: BLOOD SPECIMENOrdering Facility: [facility] Address: [address] [place], [place] [address] Performed By: #### 2 4321-2, 57983-9, 09208-7, 78027-2 ####[facility] LABCLIA [id number] [place] [id number] [place] Triglyceride [Mass/Vol] 45 mg/dL Normal <150 [facility] Comment on above: Order Comment: Speci men Type: BLOOD SPECIMENOrdering Facility: [facility] Address: [address] [place] [address] Result Comment: <150 mg/dL, Normal 150-199 mg/dL, Borderline high 200-499 mg/dL, High>499 mg/dL, Very high Performed By: #### 2 4321-2, 39510-6, 02763-5, 03580-5 ####[facility] LABIA [id number] [address] [place] MUMPS IGG ABon 11-13-2024 MuV IgG Ql (S) Negative Abnormal Positive [facility] Comment on above: Order Comment: Speci men Type: BLOOD SPECIMENOrdering Facility: [facility] Address: [address] [place] [address] Result Comment: The result suggests no history of Mumps vaccination or exposure to Mumps virus, however, some individuals with past history of Mumps vaccination may test negative using this test. Please correlate with past history of vaccination if applicable. Performed By: #### 7 3752-8, AHAVG, STRSER, MUMPSG ####[facility] LABIA [id number] [address] [place] NT-proBNP [facility] Healthcareon [facility] Natriuretic peptide.B prohormone N-Terminal [Mass/Vol] 1047 pg/mL High <125 [facility] Comment on above: Order Comment: Speci men Type: BLOOD SPECIMENOrdering Facility: [facility] Address: [address] [place] [address] Performed By: #### 2 4321-2, 58213-3, 99531-6, 77404-8 ####[facility] LABCLIA [id number] [place] [id number] [place] NURSING PROGon 11-13-2024 NURSING PROG Normal [facility] NURSING PROG Normal [facility] PHOSPHATIDYLETHANOL (PETH)on 11-13-2024 EER PETH See Note Normal [facility] Comment on above: Order Comment: Speci men Type: BLOOD SPECIMENOrdering Facility: [facility] Address: [address] [place] [address] Result Comment: Auth orized individuals can access the [employer] Enhanced Reportwith an [employer] Connect account using the following link.Your local lab can assist you in obtaining the patientreport if you don't have a Connect account.[email or web address] Performed By: #### P ETH ####[facility]IESCLIA [id number] [place] [address] PETH 16:0/18.2 (PLPETH) <10 Normal [facility] Comment on above: Order Comment: Speci men Type: BLOOD SPECIMENOrdering Facility: [facility] Address: [address] [place] [address] Result Comment: Refe rence ranges are not well established. Performed By: #### P ETH ####[facility]IESCLIA [id number] [place] [address] PETH 16:0/18:1 (POPETH) <10 Normal [facility] Comment on above: Order Comment: Speci men Type: BLOOD SPECIMENOrdering Facility: [facility] Address: [address] [place] [address] Result Comment: PEth 16:0/18:1 (POPEth)Less than 10 ng/mL............Not detectedLess than 20 ng/mL............Abstinence or light cdykcbuvrhzxrzjnmb70 - 200 ng/mL................Moderate alcohol consumptionGreater than 200 ng/mL........Heavy alcohol consumption or chronicalcohol use(Reference: Alonso Landaverde and Mathew Ha 2018 J. Forensic Sci) Performed By: #### P ETH ####[facility] LABORATORIESIA [id number] [place] [address] PETH INTERPRETATION See Comment Normal [facility] Comment on above: Order Comment: Speci men Type: BLOOD SPECIMENOrdering Facility: [facility] Address: [address] [place] [address] Result Comment: Phos phatidylethanol (PEth) is a [...] was developed and its performance characteristicsdetermined by [employer]. It has not been cleared orapproved by the U.S. Food and Drug Administration. This test wasperformed in a CLIA-certified laboratory and is intended forclinical purposes.Performed By: [facility] [place], [place] [address]O[facility]onplza Director: Lizandro Ordonez MD, PhDCLIA Number: [id number] Performed By: #### P ETH ####[facility]acter[facility]canCLIA [id number] [place] [address] PT panel Coag (PPP)on 2024 INR Coag (PPP) [Relative time] 1.9 {INR} High 0.9-1.3 [facility] Comment on above: Order Comment: Speci men Type: BLOOD SPECIMENOrdering Facility: [facility] Address: [address] [place] [address] Result Comment: Sarah min K Antagonist (VKA) Therapeutic Range: INR 2 to 3 (Target INR of 2.5)Note: For patients treated with VKA drugs, such as warfarin, the [employer] [employer] 2012 Guideline recommends [...] al. Chest 2012, 141:7S-47SNishbethel RA, et al. [facility] 2017, 70: 252-289 Performed By: #### 3 4528-0, 3255-7 ####[facility] [id number] [place] [id number] [place] PT Coag (PPP) [Time] 19.9 s High 9.7-13.0 [facility] Comment on above: Order Comment: Ezekiel ramirez Type: BLOOD SPECIMENOrdering Facility: [facility] Address: [address] [place] [address] Performed By: #### 3 4528-0, 3255-7 ####[facility] LABIA [id number] [address] [address] [place] Pathology biopsy report Marco Antonio (Tiss)on 11-13-2024 AP DISCLAIMER Normal [facility] Comment on above: Order Comment: Ezekiel ramirez Type: TISSUE SPECIMENOrdering Facility: [facility] Address: [address] [place] [address] Result Comment: Shellie pugh Developed Test (LDT) Disclaimer:Performance characteristics of immunohistochemical, immunofluorescent, and chromogenic in-situ hybridization tests have been determined by the performing laboratory within [facility] Department ([facility], [facility], [facility], [facility], [facility], [facility], or [facility]) in a manner consistent with CLIA [...] Performed By: #### 6 6121-5 ####[facility] LABORATORYCLIA [id number] [address] LABCLIA [id number] [address] [place] CASE REPORT Normal [facility] Comment on above: Order Comment: Speci men Type: TISSUE SPECIMENOrdering Facility: [facility] Address: [address] [place] [address] Result Comment: Surg [facility] Pathology Report Case: [id number] Provider: Thai Pineda MD Collected: 11/13/2024 09:40 AMOrdering Location: [place] [address] Received: 11/15/2024 03:18 PMPathologist: Axel Berger MDSpecimen: Esophagus, Biopsy, r/o esophageal candidiasis Performed By: #### 6 6121-5 ####[facility] LABORATORYCLIA [id number] [address] LABCLIA [id number] [address] STATES [facility] FINAL DIAGNOSIS Normal [facility] Comment on above: Order Comment: Speci men Type: TISSUE SPECIMENOrdering Facility: [facility] Address: [address] [place] [address] Result Comment: Esop hagus, biopsy:- Squamous mucosal candidiasis.JEL 11/16/2024 at 1034 EDT Performed By: #### 6 6121-5 ####[facility] LABORATORYCLIA [id number] [address] LABCLIA [id number] [address] [place] FINAL PERFORMING LAB Normal [facility] Comment on above: Order Comment: Speci men Type: TISSUE SPECIMENOrdering Facility: [facility] Address: [address] [place] [address] Result Comment: Diag nostic interpretation performed at: [facility], [address] [place] [address] CLIA# [id number] Director: Rick Harris MD Performed By: #### 6 6121-5 ####[facility] LABORATORYCLIA [id number] [address] LABCLIA [id number] [address] GROSS DESCRIPTION Normal [facility] Comment on above: Order Comment: Speci men Type: TISSUE SPECIMENOrdering Facility: [facility] Address: [address] [place] [address] Result Comment: Estuardo. Karma cathykitty, BiopsyReceived in formalin are multiple pieces of espitia, soft tissue aggregating to 0.9 x 0.2 x 0.2 cm. Totally submitted in one cassette.BC November 15, 2024 4:50 PMGross examination performed at [facility], [address] [place] [address] Performed By: #### 6 6121-5 ####[facility] LABORATORYCLIA [id number] [address] LABCLIA [id number] [place] [address] [place] Phosphate SerPl-mCncon 11-13 Phosphate [Mass/Vol] 1.5 mg/dL Low 2.7-4.8 [facility] Comment on above: Order Comment: Speci men Type: BLOOD SPECIMENOrdering Facility: [facility] Address: [address] [place] [address] Performed By: #### 2 777-1, 3016-3 ####[facility] LABCLIA [id number] [place] [address] [place] RUBEOLA (MEASLES)IGGon 11-13 MEASLES IGG AB, QUAL Positive Normal Positive [facility] Comment on above: Order Comment: Speci men Type: BLOOD SPECIMENOrdering Facility: [facility] Address: [address] [place] [address] Result Comment: The result suggests recent or past exposure to Measles virus or Measles vaccination. The current test does not detect neutralizing antibodies. Positive result may also be seen due to presence of passively-transferred antibodies. Please correlate with patient's history. Performed By: #### 7 852-7, MEASLG, VZVG2, 1988- ####[facility] LABCLIA [id number] [place] [address] [place] Reagin and Treponema pallidu m IgG and IgM [Interp]on 11-13-2024 T. pallidum IgG+IgM IA Ql (S) Non-Reactive Normal Nonreactive [facility] Comment on above: Order Comment: Speci [facility] Type: BLOOD SPECIMENOrdering Facility: [facility] Address: [address] [place] [address] Performed By: #### 7 3752-8, AHAVG, STRSER, MUMPSG ####[facility] LABIA [id number] [place] [address] [place] Reagin+T pallidum IgG+IgM Se rPl-Impon 11-13-2024 Reagin and Treponema pallidum IgG and IgM [Interp] Cannot exclude recent Treponemal infection if specimen collected within 7-10 days after appearance of suspect lesions or 2-3 weeks after an exposure. Clinical correlation is required. Normal [facility] Comment on above: Order Comment: Speci men Type: BLOOD SPECIMENOrdering Facility: [facility] Address: [address] [place] [address] Performed By: #### 7 3752-8, SHMUEL SORENSEN MUMPSG ####[facility] LABCLIA [id number] [place] [address] [place] STAPHYLOCOCCUS AUREUS AND MR SA SCREEN, PCR, NASALon 11-13-2024 S. aureus and MRSA panel ANANTH+probe (Nose) Not detected Normal Not Detected [facility] Comment on above: Order Comment: Speci [facility] Type: SWABOrdering Facility: [facility] Address: [address] [place] [address] Performed By: #### S APCR ####[facility] LABCLIA [id number] [address] [place] STRONGYLOIDES IGG BLon 11-13 STRONGYLOIDES IGG QUALITATIVE Negative Normal Negative [facility] Comment on above: Order Comment: Speci [facility] Type: BLOOD SPECIMENOrdering Facility: [facility] Address: [address] [place] [address] Performed By: #### S TRSER ####[facility] LABCLIA [id number] [address] [place] Performed By: #### 7 3752-8, SHMUEL SORENSEN MUMPSG ####[facility] LABCLIA [id number] [address] [place] T. gondii IgG Qn (S)on 11-13 TOXO IGG QUAL Negative Normal Negative [facility] Comment on above: Order Comment: [facility] Type: BLOOD SPECIMENOrdering Facility: [facility] Address: [address] [place] [address] Result Comment: No s erological evidence of past exposure to Toxoplasma gondii. Cannot exclude recent infection if the specimen collected within 3-4 weeks after infection. Performed By: #### 8 039-0, 7885-7 ####[facility] LABCLIA [id number] [place] [id number] [place] THERAPY NTon 11-13-2024 THERAPY NT Normal [facility] TOXICOLOGY PANEL BLDon 11-13 Acetaminophen [Mass/Vol] ug/mL Low 10-30 [facility] Comment on above: Order Comment: Ezekiel ramirez Type: BLOOD SPECIMENOrdering Facility: [facility] Address: [address] [place] [address] Result Comment: Toxi c > 150 ug/mL 4 hours post ingestionThe Viviana Figueroa nomogram can be used to estimate the probability of hepatotoxicity via the relationship of plasma acetaminophen concentration to the post ingestion interval. (Skylar. Pediatrics. 1975. 55:871 to 876 and Viviana et al. [employer] Med. 1981. 141:380 to 385).Reference ranges and high/low indicator flags are provided as general guidelines only. The treating physician must determine appropriate target levels/dosing based on the specific clinical situation. Performed By: #### T OXP ####[facility] LABCLIA [id number] [place] [address] [place] Ethanol [Mass/Vol] mg/dL Normal <11 [facility] Comment on above: Order Comment: Ezekiel ramirez Type: BLOOD SPECIMENOrdering Facility: [facility] Address: [address] [place] [address] Performed By: #### T OXP ####[facility] LABIA [id number] [place] [id number] [place] Salicylates [Mass/Vol] mg/dL Low 3.0-30.0 [facility] Comment on above: Order Comment: Ezekiel ramirez Type: BLOOD SPECIMENOrdering Facility: [facility] Address: [address] [place] [address] Result Comment: The therapeutic range varies and has been reported to be 3.0 to 10.0 mg/dL for anti pyretic/analgesic conditions and 15.0 to 30.0 mg/dL for anti inflammatory/rheumatic fever conditions. Ranges published by the instrument mattress filler.Reference ranges and high/low indicator flags are provided as general guidelines only. The treating physician must determine appropriate target levels/dosing based on the specific clinical situation. Performed By: #### T OXP ####[facility] LABCLIA [id number] [place] [address] [place] TSH SerPl-aCncon 11-13-2024 TSH Qn 0.633 m[IU]/L Normal 0.270-4.200 [facility] Comment on above: Order Comment: Speci james Type: BLOOD SPECIMENOrdering Facility: [facility] Address: [address] [place] [address] Performed By: #### 2 777-1, 3016-3 ####[facility] [id number] [address] [place] Upper GI endoscopyon 025 Upper GI endoscopy Normal [facility] VARICELLA ZOSTER IGGon 11-13 VARICELLA ZOSTER IGG, QUAL Positive Normal Positive [facility] Comment on above: Order Comment: Ezekiel ramirez Type: BLOOD SPECIMENOrdering Facility: [facility] Address: [address] [place] [address] Result Comment: The result suggests recent or past exposure to Varicella-Zoster virus or chickenpox vaccination or zoster vaccination. Positive result may also be seen due to presence of passively-transferred antibodies. Please correlate with patient's history. Performed By: #### 7 852-7, MEASLG, VZVG2, 1988-10 ####[facility] LABCLIA [id number] [place] [address] [place] Vit A SerPl-mCncon 5 Retinol [Mass/Vol] 0.03 mg/L Low 0.30-1.20 [facility] Comment on above: Order Comment: Ezekiel ramirez Type: BLOOD SPECIMENOrdering Facility: [facility] Address: [address] [place] [address] Result Comment: This test was developed, and its performance characteristics determined by the [facility] Department of Pathology and Laboratory Medicine. It has not been cleared or approved by the FDA. The [facility] Department of Pathology and Laboratory Medicine is regulated under CLIA as qualified to perform high-complexity testing. This test is used for clinical purposes. It should not be regarded as investigational or for research. Performed By: #### 2 923-1, 1823-4 ####[facility] LABIA [id number] [address] STATES OF [facility] Zinc SerPl-mCncon 11-13-2024 Zinc [Mass/Vol] 60 ug/dL Normal 60-120 [facility] Comment on above: Order Comment: Speci men Type: BLOOD SPECIMENOrdering Facility: [facility] Address: [address] [place] [address] Result Comment: This test was developed, and its performance characteristics determined by the [facility] Department of Pathology and Laboratory Medicine. It has not been cleared or approved by the FDA. The [facility] Department of Pathology and Laboratory Medicine is regulated under CLIA as qualified to perform high-complexity testing. This test is used for clinical purposes. It should not be regarded as investigational or for research. Performed By: #### 5 763-8 ####[facility] LABIA [id number] [address] STATES OF [facility] AFP SerPl-mCncon 11-12-2024 AFP [Mass/Vol] 2.25 ng/mL Normal <9.00 [facility] Comment on above: Order Comment: Speci men Type: BLOOD SPECIMENOrdering Facility: [facility] Address: [address] [place] [address] Result Comment: The Alpha-Fetoprotein test was performed using the Fiordaliza freshbagel DxI immunoenzymatic assay. Results obtained with different assay methods or kits cannot be used interchangeably. Performed By: #### 1 834-1 ####[facility] LABIA [id number] [place] [address] [place] ARTERIAL BLOOD GASESon 11-12 Base deficit (BldA) [Moles/Vol] -8 mmol/L Low -2-0 [facility] Comment on above: Order Comment: Speci men Type: ARTERIAL BLOOD SPECIMENOrdering Facility: [facility] Address: [address] [place] [address] Performed By: #### A LLBG ####[facility] LABCLIA [id number] [place] [address] [place] Body temperature 98.6 [degF] Normal [facility] Comment on above: Order Comment: Speci men Type: ARTERIAL BLOOD SPECIMENOrdering Facility: [facility] Address: [address] [place] [address] Performed By: #### A LLBG ####[facility] LABIA [id number] [place] [address] [place] Calcium.ionized (Bld) [Mass/Vol] 1.20 mmol/L Normal 1.08-1.30 [facility] Comment on above: Order Comment: Speci men Type: ARTERIAL BLOOD SPECIMENOrdering Facility: [facility] Address: [address] [place] [address] Performed By: #### A LLBG ####[facility] LABIA [id number] [place] [address] [place] Calcium.ionized adjusted to pH 7.4 (BldA) [Moles/Vol] 1.24 mmol/L Normal 1.08-1.30 [facility] Comment on above: Order Comment: Speci men Type: ARTERIAL BLOOD SPECIMENOrdering Facility: [facility] Address: [address] [place] [address] Performed By: #### A LLBG ####[facility] LABIA [id number] [place] [address] [place] Carboxyhemoglobin (BldA) [Mass fraction] 2.0 % Normal 0.0-2.0 [facility] Comment on above: Order Comment: Speci men Type: ARTERIAL BLOOD SPECIMENOrdering Facility: [facility] Address: [address] [place] [address] Result Comment: Carb oxyhemoglobin Reference Range for Smokers: 2.0-8.0% Performed By: #### A LLBG ####[facility] LABCLIA [id number] [place] [address] [place] CO2 (Bld) [Partial pressure] 21 mm Hg Low 36-46 [facility] Comment on above: Order Comment: Speci men Type: ARTERIAL BLOOD SPECIMENOrdering Facility: [facility] Address: [address] [place] [address] Performed By: #### A LLBG ####[facility] LABCLIA [id number] [place] [address] [place] Glucose [Mass/Vol] 276 mg/dL High 60-105 [facility] Comment on above: Order Comment: Speci men Type: ARTERIAL BLOOD SPECIMENOrdering Facility: [facility] Address: [address] [place] [address] Performed By: #### A LLBG ####[facility] LABCLIA [id number] [place] [address] [place] HCO3 (Bld) [Moles/Vol] 15 mmol/L Low 22-26 [facility] Comment on above: Order Comment: Speci men Type: ARTERIAL BLOOD SPECIMENOrdering Facility: [facility] Address: [address] [place] [address] Performed By: #### A LLBG ####[facility] LABCLIA [id number] [place] [address] [place] Hematocrit (Bld) [Volume fraction] 22.4 % Low 39.0-51.0 [facility] Comment on above: Order Comment: Speci men Type: ARTERIAL BLOOD SPECIMENOrdering Facility: [facility] Address: [address] [place] [address] Performed By: #### A LLBG ####[facility] LABCLIA [id number] [place] [address] [place] Hemoglobin (Bld) [Mass/Vol] 7.2 g/dL Low 13.0-17.0 [facility] Comment on above: Order Comment: Speci men Type: ARTERIAL BLOOD SPECIMENOrdering Facility: [facility] Address: [address] [place] [address] Performed By: #### A LLBG ####[facility] LABCLIA [id number] [place] [id number] [place] Lactate [Moles/Vol] 2.9 mmol/L High 0.5-2.2 [facility] Comment on above: Order Comment: Speci men Type: ARTERIAL BLOOD SPECIMENOrdering Facility: [facility] Address: [address] [place] [address] Performed By: #### A LLBG ####[facility] LABCLIA [id number] [place] [address] [place] Methemoglobin (Bld) [Mass fraction] 1.0 % Normal 0.0-1.5 [facility] Comment on above: Order Comment: Speci men Type: ARTERIAL BLOOD SPECIMENOrdering Facility: [facility] Address: [address] [place] [address] Performed By: #### A LLBG ####[facility] LABCLIA [id number] [place] [address] [place] O2 THERAPY RA=Room Air Normal [facility] Comment on above: Order Comment: Speci men Type: ARTERIAL BLOOD SPECIMENOrdering Facility: [facility] Address: [address] [place] [address] Performed By: #### A LLBG ####[facility] LABCLIA [id number] [place] [id number] [place] Oxygen (Bld) [Partial pressure] 94 mm Hg Normal 85-95 [facility] Comment on above: Order Comment: Speci men Type: ARTERIAL BLOOD SPECIMENOrdering Facility: [facility] Address: [address], [place] [address] Performed By: #### A LLBG ####[facility] LABCLIA [id number] [address] [address] [place] Oxyhemoglobin (BldA) [Mass fraction] 96 % Normal 95-98 [facility] Comment on above: Order Comment: Speci men Type: ARTERIAL BLOOD SPECIMENOrdering Facility: [facility] Address: [address] [place] [address] Performed By: #### A LLBG ####[facility] LABCLIA [id number] [place] [id number] [place] pH (Bld) 7.46 [pH] High 7.35-7.45 [facility] Comment on above: Order Comment: Speci men Type: ARTERIAL BLOOD SPECIMENOrdering Facility: [facility] Address: [address] [place] [address] Performed By: #### A LLBG ####[facility] LABCLIA [id number] [place] [id number] [place] PO2 / FIO2 RATIO 448 mmHg Normal >300 [facility] Comment on above: Order Comment: Speci men Type: ARTERIAL BLOOD SPECIMENOrdering Facility: [facility] Address: [address] [place] [address] Performed By: #### A LLBG ####[facility] LABIA [id number] [place] [id number] [place] Potassium [Moles/Vol] 3.9 mmol/L Normal 3.5-5.0 [facility] Comment on above: Order Comment: Speci men Type: ARTERIAL BLOOD SPECIMENOrdering Facility: [facility] Address: [address] [place], [place] [address] Performed By: #### A LLBG ####[facility] LABCLIA [id number] [address] [address] [place] Sodium [Moles/Vol] 124 mmol/L Low 136-144 [facility] Comment on above: Order Comment: Speci men Type: ARTERIAL BLOOD SPECIMENOrdering Facility: [facility] Address: [address] [place] [address] Performed By: #### A LLBG ####[facility] LABCLIA [id number] [facility] [address] [address] [place] Bacteria Ur Culton Bacteria identified Cx Nom (U) Normal [facility] Comment on above: Performed By: #### 6 30-4, 40666-2 ####[facility] LABCLIA [id number] [facility] [address] [address] [place] Basic metabolic 2000 panelon 11-12-2024 Anion gap [Moles/Vol] 11 mmol/L Normal 8-15 [facility] Comment on above: Order Comment: Speci men Type: BLOOD SPECIMENOrdering Facility: [facility] Address: [address] [place] [address] Performed By: #### 2 4321-2, 43547-4, 277-1 ####[facility] LABCLIA [id number] [place] [id number] [place] Calcium [Mass/Vol] 9.2 mg/dL Normal 8.5-10.2 [facility] Comment on above: Order Comment: Speci men Type: BLOOD SPECIMENOrdering Facility: [facility] Address: [address] [place] [address] Performed By: #### 2 4321-2, 65963-1, 277-1 ####[facility] LABCLIA [id number] [address] [address] [place] Chloride [Moles/Vol] 99 mmol/L Normal 98-107 [facility] Comment on above: Order Comment: Speci men Type: BLOOD SPECIMENOrdering Facility: [facility] Address: [address] [place] [address] Performed By: #### 2 4321-2, 31704-6, 2777-1 ####[facility] [facility] LABIA [id number] [address] [address] [place] CO2 [Moles/Vol] 14 mmol/L Low 22-30 [facility] Comment on above: Order Comment: Speci men Type: BLOOD SPECIMENOrdering Facility: [facility] Address: [address] [place] [address] Performed By: #### 2 4321-2, 46531-7, 2776-08 ####[facility] LABIA [id number] [address] [address] [place] Creatinine [Mass/Vol] 1.22 mg/dL Normal 0.73-1.22 [facility] Comment on above: Order Comment: Speci men Type: BLOOD SPECIMENOrdering Facility: [facility] Address: [address] [place] [address] Performed By: #### 2 432-2, 66311-7, 2776-08 ####[facility] [place] [id number] [address] [address] [place] Creatinine and Glomerular filtration rate.predicted panel (S/P/Bld) 69 mL/min/1.73m??? Normal >=60 [facility] Comment on above: Order Comment: Speci men Type: BLOOD SPECIMENOrdering Facility: [facility] Address: [address] [place] [address] Result Comment: Partic mated Glomerular Filtration Rate (eGFR) is calculated [...] actual GFR. Performed By: #### 2 4321-2, 99474-6, 2776-08 ####[facility] LABIA [id number] [address] [address] [place] Glucose [Mass/Vol] 304 mg/dL High 74-99 [facility] Comment on above: Order Comment: Speci men Type: BLOOD SPECIMENOrdering Facility: [facility] Address: [address] [place] [address] Result Comment: The [place] Diabetes Association (ADA) provides guidance for cutoff [...] Standards of Medical Care in Diabetes 2016, [place] [employer]. Diabetes Care. 2016.39(Suppl 1). Performed By: #### 2 4321-2, 27668-0, 2777- ####[facility] LABCLIA [id number] [place] [address] [place] Potassium [Moles/Vol] 4.3 mmol/L Normal 3.7-5.1 [facility] Comment on above: Order Comment: Speci men Type: BLOOD SPECIMENOrdering Facility: [facility] Address: [address] [place] [address] Performed By: #### 2 4321-2, 97296-4, 2777- ####[facility] LABCLIA [id number] [place] [address] [place] Sodium [Moles/Vol] 124 mmol/L Low 136-144 [facility] Comment on above: Order Comment: Speci men Type: BLOOD SPECIMENOrdering Facility: [facility] Address: [address] [place] [address] Performed By: #### 2 4321-2, 95293-4, 2777-1 ####[facility] LABCLIA [id number] [address] [id number] [address] [place] Urea nitrogen [Mass/Vol] 22 mg/dL Normal 9-24 [facility] Comment on above: Order Comment: Speci men Type: BLOOD SPECIMENOrdering Facility: [facility] Address: [address] [place] [address] Performed By: #### 2 4321-2, 64979-7, 2777-1 ####[facility] LABCLIA [id number] [address], [place] [address] [place] CASE MGT INIT ASSESon 2024 CASE MGT INIT ASSES Normal [facility] CBC panel Auto (Bld)on 11-12 Erythrocyte distribution width (RBC) [Ratio] 16.9 % High 11.5-15.0 [facility] Comment on above: Order Comment: Speci men Type: BLOOD SPECIMENOrdering Facility: [facility] Address: [address] [place] [address] Performed By: #### 5 8410-2 ####[facility] LABCLIA [id number] [address], [facility]95 [place] Hematocrit (Bld) [Volume fraction] 21.7 % Low 39.0-51.0 [facility] Comment on above: Order Comment: Speci men Type: BLOOD SPECIMENOrdering Facility: [facility] Address: [address] [place] [address] Performed By: #### 5 8410-2 ####[facility] LABCLIA [id number] [facility] [address], [facility] [place] Hemoglobin (Bld) [Mass/Vol] 7.5 g/dL Low 13.0-17.0 [facility] Comment on above: Order Comment: Speci men Type: BLOOD SPECIMENOrdering Facility: [facility] Address: [address] [place] [address] Performed By: #### 5 8410-2 ####[facility] LABCLIA [id number] [place] [address] [place] MCH (RBC) [Entitic mass] 31.5 pg Normal 26.0-34.0 [facility] Comment on above: Order Comment: Speci men Type: BLOOD SPECIMENOrdering Facility: [facility] Address: [address] [place] [address] Performed By: #### 5 8410-2 ####[facility] LABCLIA [id number] [place] [address] [place] MCHC (RBC) [Mass/Vol] 34.6 g/dL Normal 30.5-36.0 [facility] Comment on above: Order Comment: Speci men Type: BLOOD SPECIMENOrdering Facility: [facility] Address: [address] [place] [address] Performed By: #### 5 8410-2 ####[facility] LABCLIA [id number] [place] [address] [place] MCV (RBC) [Entitic vol] 91.2 fL Normal 80.0-100.0 [facility] Comment on above: Order Comment: Speci men Type: BLOOD SPECIMENOrdering Facility: [facility] Address: [address] [place] [address] Performed By: #### 5 8410-2 ####[facility] LABIA [id number] [place] [address] [place] Nucleated RBC (Bld) [#/Vol] 10*3/uL Normal <0.01 [facility] Comment on above: Order Comment: Speci men Type: BLOOD SPECIMENOrdering Facility: [facility] Address: [address] [place] [address] Performed By: #### 5 8410-2 ####[facility] LABCLIA [id number] [place] [address] [place] Platelet mean volume (Bld) [Entitic vol] 10.8 fL Normal 9.0-12.7 [facility] Comment on above: Order Comment: Speci men Type: BLOOD SPECIMENOrdering Facility: [facility] Address: [address] [place] [address] Performed By: #### 5 8410-2 ####[facility] LABIA [id number] [place] [address] [place] Platelets (Bld) [#/Vol] 31 10*3/uL Low 150-400 [facility] Comment on above: Order Comment: Speci men Type: BLOOD SPECIMENOrdering Facility: [facility] Address: [address] [place] [address] Result Comment: Resu lts checked and verified.No clot detected. Performed By: #### 5 8410-2 ####[facility] LABIA [id number] [place] [address] [place] RBC (Bld) [#/Vol] 2.38 10*6/uL Low 4.20-6.00 [facility] Comment on above: Order Comment: Speci men Type: BLOOD SPECIMENOrdering Facility: [facility] Address: [address] [place] [address] Performed By: #### 5 8410-2 ####[facility] LABIA [id number] [place] [address] [place] WBC (Bld) [#/Vol] 6.35 10*3/uL Normal 3.70-11.00 [facility] Comment on above: Order Comment: Speci men Type: BLOOD SPECIMENOrdering Facility: [facility] Address: [address] [place] [address] Performed By: #### 5 8410-2 ####[facility] LABIA [id number] [place] [address] [place] Erythrocyte distribution width (RBC) [Ratio] 17.3 % High 11.5-15.0 [facility] Comment on above: Order Comment: Speci men Type: BLOOD SPECIMENOrdering Facility: [facility] Address: [address] [place] [address] Performed By: #### 5 8410-2 ####[facility] LABCLIA [id number] [place] [address] [place] Hematocrit (Bld) [Volume fraction] 22.9 % Low 39.0-51.0 [facility] Comment on above: Order Comment: Speci men Type: BLOOD SPECIMENOrdering Facility: [facility] Address: [address] [place] [address] Performed By: #### 5 8410-2 ####[facility] LABIA [id number] [place] [address] [place] Hemoglobin (Bld) [Mass/Vol] 7.9 g/dL Low 13.0-17.0 [facility] Comment on above: Order Comment: Speci men Type: BLOOD SPECIMENOrdering Facility: [facility] Address: [address] [place] [address] Performed By: #### 5 8410-2 ####[facility] LABIA [id number] [place] [address] [place] MCH (RBC) [Entitic mass] 31.5 pg Normal 26.0-34.0 [facility] Comment on above: Order Comment: Speci men Type: BLOOD SPECIMENOrdering Facility: [facility] Address: [address] [place] [address] Performed By: #### 5 8410-2 ####[facility] LABCLIA [id number] [place] [address] [place] MCHC (RBC) [Mass/Vol] 34.5 g/dL Normal 30.5-36.0 [facility] Comment on above: Order Comment: Speci men Type: BLOOD SPECIMENOrdering Facility: [facility] Address: [address] [place] [address] Performed By: #### 5 8410-2 ####[facility] LABCLIA [id number] [place] [address] [place] MCV (RBC) [Entitic vol] 91.2 fL Normal 80.0-100.0 [facility] Comment on above: Order Comment: Speci men Type: BLOOD SPECIMENOrdering Facility: [facility] Address: [address] [place] [address] Performed By: #### 5 8410-2 ####[facility] LABIA [id number] [place] [address] [place] Nucleated RBC (Bld) [#/Vol] 10*3/uL Normal <0.01 [facility] Comment on above: Order Comment: Speci men Type: BLOOD SPECIMENOrdering Facility: [facility] Address: [address] [place] [address] Performed By: #### 5 8410-2 ####[facility] LABIA [id number] [place] [address] [place] Platelet mean volume (Bld) [Entitic vol] 11.6 fL Normal 9.0-12.7 [facility] Comment on above: Order Comment: Speci men Type: BLOOD SPECIMENOrdering Facility: [facility] Address: [address] [place] [address] Performed By: #### 5 8410-2 ####[facility] LABIA [id number] [place] [address] [place] Platelets (Bld) [#/Vol] 33 10*3/uL Low 150-400 [facility] Comment on above: Order Comment: Speci men Type: BLOOD SPECIMENOrdering Facility: [facility] Address: [address] [place] [address] Result Comment: Resu lts checked and verified.No clot detected. Performed By: #### 5 8410-2 ####[facility] LABIA [id number] [place] [address] [place] RBC (Bld) [#/Vol] 2.51 10*6/uL Low 4.20-6.00 [facility] Comment on above: Order Comment: Speci men Type: BLOOD SPECIMENOrdering Facility: [facility] Address: [address] [place] [address] Performed By: #### 5 8410-2 ####[facility] LABCLIA [id number] [place] [address] [place] WBC (Bld) [#/Vol] 7.27 10*3/uL Normal 3.70-11.00 [facility] Comment on above: Order Comment: Speci men Type: BLOOD SPECIMENOrdering Facility: [facility] Address: [address] [place] [address] Performed By: #### 5 8410-2 ####[facility] LABCLIA [id number] [place] [address] [place] CITRATED PLATELET COUNTon CITRATED PLATELET COUNT (WAM) 33 k/uL Low 150-400 [facility] Comment on above: Order Comment: Speci men Type: BLOOD SPECIMENOrdering Facility: [facility] Address: [address] [place] [address] Result Comment: Plat elet count confirmed by manual review of peripheral blood smear. No clot detected. Performed By: #### C ITPLT ####[facility] LABIA [id number] [place] [address] [place] CNCNPATEDon 11-12-2024 CNCNPATED Normal [facility] CNPNon 11-12-2024 CNPN Normal [facility] CONFIRM BLOOD TYPEon 025 ABO O Normal [facility] Comment on above: Order Comment: Speci men Type: BLOOD SPECIMENOrdering Facility: [facility] Address: [address] [place] [address] Performed By: #### C ONABO ####[facility] BLOOD BANKCLIA [id number] [address] [id number], [place] [address] [place] Rh Nom (Bld) Positive Normal [facility] Comment on above: Order Comment: Speci men Type: BLOOD SPECIMENOrdering Facility: [facility] Address: [address] [place] [address] Performed By: #### C ONABO ####[facility] BLOOD BANKUNIVERS[facility] [id number] [place] [address] [place] CONSULTon 11-12-2024 CONSULT Normal [facility] CONSULT Normal [facility] CONSULT Normal [facility] CONSULT Normal [facility] CONSULT Normal [facility] CONSULT Normal [facility] CT CHEST WO IVCONon 11-13-19 CT CHEST WO IVCON Normal [facility] D dimer FEU PPP-mCncon 11-12 Fibrin D-dimer FEU (PPP) [Mass/Vol] 3850 ng/mL FEU High <500 [facility] Comment on above: Order Comment: Speci men Type: BLOOD SPECIMENOrdering Facility: [facility] Address: [address] [place] [address] Performed By: #### 4 8065-7 ####[facility] LABIA [id number] [place] [address] [place] ECHO WITH AGITATED SALINE CO NTRASTon 11-12-2024 ECHO WITH AGITATED SALINE CONTRAST Normal [facility] Fibrin D-dimer FEU (PPP) [Ma ss/Vol]on 11-12-2024 D DIMER AGE-RELATED CUTOFF 580 ng/mL FEU Normal [facility] Comment on above: Order Comment: Speci men Type: BLOOD SPECIMENOrdering Facility: [facility] Address: [address] [place] [address] Performed By: #### 4 8065-7 ####[facility] LABIA [id number] [place] [address] [place] Hepatic function 2000 panelo n 11-12-2024 Albumin [Mass/Vol] 3.0 g/dL Low 3.9-4.9 [facility] Comment on above: Order Comment: Speci men Type: BLOOD SPECIMENOrdering Facility: [facility] Address: [address] [place] [address] Performed By: #### 2 4321-2, 87169-0, 2776- ####[facility] LABCLIA [id number] [place] [address] [place] ALP [Catalytic activity/Vol] 252 U/L High 38-113 [facility] Comment on above: Order Comment: Speci men Type: BLOOD SPECIMENOrdering Facility: [facility] Address: [address] [place] [address] Performed By: #### 2 4321-2, 84403-8, 2776-08 ####[facility] LABCLIA [id number] [place] [address] [place] ALT [Catalytic activity/Vol] 24 U/L Normal 10-54 [facility] Comment on above: Order Comment: Speci men Type: BLOOD SPECIMENOrdering Facility: [facility] Address: [address] [place] [address] Performed By: #### 2 4321-2, 72322-7, 2776-08 ####[facility] LABCLIA [id number] [place] [address] [place] AST [Catalytic activity/Vol] 41 U/L High 14-40 [facility] Comment on above: Order Comment: Speci men Type: BLOOD SPECIMENOrdering Facility: [facility] Address: [address] [place] [address] Performed By: #### 2 4321-2, 54900-0, 2776-08 ####[facility] LABCLIA [id number] [place] [address] [place] Bilirubin [Mass/Vol] 1.8 mg/dL High 0.2-1.3 [facility] Comment on above: Order Comment: Speci men Type: BLOOD SPECIMENOrdering Facility: [facility] Address: [address] [place] [address] Performed By: #### 2 4321-2, 87436-3, 27702-01 ####[facility] LABIA [id number] [place] [address] [place] Bilirubin.conjugated [Mass/Vol] 0.9 mg/dL High <0.3 [facility] Comment on above: Order Comment: Speci men Type: BLOOD SPECIMENOrdering Facility: [facility] Address: [address] [place] [address] Result Comment: Resu lts may be falsely decreased due to interference from hemolysis. Suggest reorder as clinically indicated. Performed By: #### 2 4321-2, 71242-0, 2776-08 ####[facility] LABIA [id number] [place] [address] [place] Protein [Mass/Vol] 5.5 g/dL Low 6.3-8.0 [facility] Comment on above: Order Comment: Speci men Type: BLOOD SPECIMENOrdering Facility: [facility] Address: [address] [place] [address] Performed By: #### 2 4321-2, 08564-0, 2776-08 ####[facility] LABIA [id number] [place] [address] [place] MEDICAL EMERon 11-12-2024 MEDICAL KRISTINA Normal [facility] NURSING PROGon 11-12-2024 NURSING PROG Normal [facility] NURSING PROG Normal [facility] NURSING PROG Normal [facility] NURSING PROG Normal [facility] NUTRITIONon 11-12-2024 NUTRITION Normal [facility] PTT, ANTICOAGULANT THERAPYon 11-12-2024 aPTT Coag (PPP) [Time] 62.6 s High 23.0-32.4 [facility] Comment on above: Order Comment: Speci men Type: BLOOD SPECIMENOrdering Facility: [facility] Address: [address] [place] [address] Performed By: #### P TTA ####[facility] LABCLIA [id number] [place] [address] [place] Phosphate SerPl-mCncon 11-12 Phosphate [Mass/Vol] 2.3 mg/dL Low 2.7-4.8 [facility] Comment on above: Order Comment: Speci men Type: BLOOD SPECIMENOrdering Facility: [facility] Address: [address] [place] [address] Performed By: #### 2 4321-2, 12742-8, 2777-1 ####[facility] LABIA [id number] [place] [address] [place] SOCIAL WORKon 11-12-2024 SOCIAL WORK Normal [facility] THERAPY NTon 11-12-2024 THERAPY NT Normal [facility] THERAPY NT Normal [facility] THROMBOGRAPH PANELon 025 Clot angle TEG (Bld) [Angle] 32.8 degrees Low 47.0-74.0 [facility] Comment on above: Order Comment: Speci men Type: BLOOD SPECIMENOrdering Facility: [facility] Address: [address] [place] [address] Performed By: #### T EGPNP ####[facility] LABIA [id number] [address] [place] Clot Lysis 30 Min post maximum clot amplitude TEG (Bld) [Length fraction] 0.0 % Normal 0.0-8.0 [facility] Comment on above: Order Comment: Speci men Type: BLOOD SPECIMENOrdering Facility: [facility] Address: [address] [place] [address] Performed By: #### T EGPNP ####[facility] LABIA [id number] [place] [id number] [place] Clotting time TEG (Bld) 5.0 minutes Normal 4.0-10.0 [facility] Comment on above: Order Comment: Speci men Type: BLOOD SPECIMENOrdering Facility: [facility] Address: [address] [place] [address] Performed By: #### T EGPNP ####[facility] [id number] [place] [address] [place] Coagulation index TEG Qn (Bld) -8.4 Low -4.6-3.2 [facility] Comment on above: Order Comment: Speci men Type: BLOOD SPECIMENOrdering Facility: [facility] Address: [address] [place] [address] Result Comment: This test was developed, and its performance characteristics determined by the [facility] Department of Pathology and Laboratory Medicine. It has not been cleared or approved by the FDA. The [facility] Department of Pathology and Laboratory Medicine is regulated under CLIA as qualified to perform high-complexity testing. This test is used for clinical purposes. It should not be regarded as investigational or for research. Performed By: #### T EGPNP ####[facility] LABIA [id number] [place] [address] [place] Maximum clot firmness TEG (Bld) [Length] 28.5 mm Low 51.0-75.0 [facility] Comment on above: Order Comment: Meggani james Type: BLOOD SPECIMENOrdering Facility: [facility] Address: [address] [place] [address] Performed By: #### T EGPNP ####[facility] [id number] [place] [id number] [place] Thromboelastography after addtion of heparinase panel (Bld) Normal [facility] Comment on above: Order Comment: Meggani james Type: BLOOD SPECIMENOrdering Facility: [facility] Address: [address] [place] [address] Result Comment: A th romboelastograph (TEG) study [...] Performed By: #### T EGPNP ####[facility] LABCLIA [id number] [place] [address] [place] TOXICOLOGY SCREEN, ROUTINE U RINEon 11-12-2024 Amphetamines Confirm (U) [Mass/Vol] Negative Normal Negative [facility] Comment on above: Order Comment: Speci men Type: URINE SPECIMENOrdering Facility: [facility] Address: [address] [place] [address] Result Comment: Cuto ff threshold at 1000 ng/mL. Performed By: #### U TOX2 ####[facility] LABIA [id number] [place] [address] [place] BARBITURATES, URINE Negative Normal Negative [facility] Comment on above: Order Comment: Speci men Type: URINE SPECIMENOrdering Facility: [facility] Address: [address], [place] [address] Result Comment: Cuto ff threshold at 200 ng/mL. Performed By: #### U TOX2 ####[facility] LABIA [id number] [place] [address] [place] BENZODIAZEPINES, UR Negative Normal Negative [facility] Comment on above: Order Comment: Speci men Type: URINE SPECIMENOrdering Facility: [facility] Address: [address] [place] [address] Result Comment: Cuto ff threshold at 200 ng/mL. Performed By: #### U TOX2 ####[facility] LABCLIA [id number] [place] [address] [place] Cannabinoids Screen Ql (U) Negative Normal Negative [facility] Comment on above: Order Comment: Speci men Type: URINE SPECIMENOrdering Facility: [facility] Address: [address] [place] [address] Result Comment: Cuto ff threshold at 50 ng/mL. Performed By: #### U TOX2 ####[facility] LABCLIA [id number] [place] [address] [place] Cocaine Ql (U) Negative Normal Negative [facility] Comment on above: Order Comment: Speci men Type: URINE SPECIMENOrdering Facility: [facility] Address: [address] [place] [address] Result Comment: Cuto ff threshold at 300 ng/mL. Performed By: #### U TOX2 ####[facility] LABCLIA [id number] [place] [address] [place] Ethanol (U) [Mass/Vol] <11 Normal <11 [facility] Comment on above: Order Comment: Speci men Type: URINE SPECIMENOrdering Facility: [facility] Address: [address] [place] [address] Performed By: #### U TOX2 ####[facility] LABCLIA [id number] [place] [address] [place] Opiates Screen Ql (U) Negative Normal Negative [facility] Comment on above: Order Comment: Speci men Type: URINE SPECIMENOrdering Facility: [facility] Address: [address] [place] [address] Result Comment: Cuto ff threshold at 300 ng/mL. Performed By: #### U TOX2 ####[facility] LABCLIA [id number] [place] [address] [place] oxyCODONE cutoff Screen (U) [Mass/Vol] Positive Abnormal Negative [facility] Comment on above: Order Comment: Speci men Type: URINE SPECIMENOrdering Facility: [facility] Address: [address] [place] [address] Result Comment: Cuto ff threshold at 100 ng/mL. Performed By: #### U TOX2 ####[facility] LABCLIA [id number] [place] [address] [place] Phencyclidine Ql (U) Negative Normal Negative [facility] Comment on above: Order Comment: Speci men Type: URINE SPECIMENOrdering Facility: [facility] Address: [address] [place] [address] Result Comment: Cuto ff threshold at 25 ng/mL. Performed By: #### U TOX2 ####[facility] LABCLIA [id number] [address] [place] TYPE + SCREENon 11-12-2024 ABO O Normal [facility] Comment on above: Order Comment: Speci men Type: BLOOD SPECIMENOrdering Facility: [facility] Address: [address] [place] [address] Performed By: #### T SCR ####[facility] BLO[facility] BANKCLIA [id number] [place] [address] [place] Rh Nom (Bld) Positive Normal [facility] Comment on above: Order Comment: Speci men Type: BLOOD SPECIMENOrdering Facility: [facility] Address: [address] [place] [address] Performed By: #### T SCR ####[facility] BLOOD BANKCLIA [id number] [place] [address] [place] TYPE AND SCREEN EXPIRATION 11/15/2024 23:59 Normal [facility] Comment on above: Order Comment: Speci men Type: BLOOD SPECIMENOrdering Facility: [facility] Address: [address] [place] [address] Performed By: #### T SCR ####CC [facility] BLOOD BANKIA [id number] [facility] [place] [address] [place] Urinalysis complete panel (U )on 11-12-2024 BACTERIA UL 1553.2 uL High Negative [facility] Comment on above: Order Comment: Speci men Type: URINE SPECIMENOrdering Facility: [facility] Address: [address] [place] [address] Performed By: #### 6 30-4, 51596-1 ####[facility] LABIA [id number] [place] [address] [place] Bilirubin Ql (U) 1+ Abnormal Negative [facility] Comment on above: Order Comment: Speci men Type: URINE SPECIMENOrdering Facility: [facility] Address: [address] [place] [address] Result Comment: Sugg est correlation with clinical findings and serum bilirubin if clinically indicated. Performed By: #### 6 30-, 49934-9 ####[facility] LABIA [id number] [place] [id number] [place] Clarity (Unsp spec) Cloudy Abnormal Clear [facility] Comment on above: Order Comment: Speci men Type: URINE SPECIMENOrdering Facility: [facility] Address: [address] [place] [address] Performed By: #### 6 30-, 71853-0 ####[facility] LABCLIA [id number] [address] [address] [place] Color (U) Dickson Abnormal Yellow [facility] Comment on above: Order Comment: Speci men Type: URINE SPECIMENOrdering Facility: [facility] Address: [address] [place] [address] Performed By: #### 6 30-4, 95803-8 ####[facility] LABCLIA [id number] [address] [address] [place] Epithelial cells LM.HPF (Urine sed) [#/Area] None Seen Normal [facility] Comment on above: Order Comment: Speci men Type: URINE SPECIMENOrdering Facility: [facility] Address: [address] [place] [address] Performed By: #### 6 30-4, 21197-1 ####[facility] LABCLIA [id number] [facility] [address], [place] [address] [place] Glucose Test strip (U) [Mass/Vol] Negative Normal Negative [facility] Comment on above: Order Comment: Speci men Type: URINE SPECIMENOrdering Facility: [facility] Address: [address] [place] [address] Performed By: #### 6 30-4, 31538-1 ####[facility] LABCLIA [id number] [address], [facility] [place] Hemoglobin Ql (U) 3+ Abnormal Negative [facility] Comment on above: Order Comment: Speci men Type: URINE SPECIMENOrdering Facility: [facility] Address: [address] [place] [address] Performed By: #### 6 30-4, 13073-3 ####[facility] LABCLIA [id number] [address], [place] [address] [place] Hyaline casts (Urine sed) [#/Area] 0 /[LPF] Normal 0 /LPF [facility] Comment on above: Order Comment: Speci men Type: URINE SPECIMENOrdering Facility: [facility] Address: [address] [place] [address] Performed By: #### 6 30-4, 53622-7 ####[facility] LABCLIA [id number] [place] [address] [place] Ketones Ql (U) Negative Normal Negative [facility] Comment on above: Order Comment: Speci men Type: URINE SPECIMENOrdering Facility: [facility] Address: [address] [place] [address] Performed By: #### 6 30-4, 51193-7 ####[facility] LABCLIA [id number] [facility] [address] [place] [address] [place] Leukocyte esterase Test strip Ql (U) 2+ Abnormal Negative [facility] Comment on above: Order Comment: Speci men Type: URINE SPECIMENOrdering Facility: [facility] Address: [address] [place] [address] Performed By: #### 6 30-4, 55754-2 ####[facility] LABCLIA [id number] [address], [facility] [place] Nitrite Ql (U) Negative Normal Negative [facility] Comment on above: Order Comment: Speci men Type: URINE SPECIMENOrdering Facility: [facility] Address: [address] [place] [address] Performed By: #### 6 30-4, 00470-2 ####[facility] LABCLIA [id number] [address], [facility] [place] pH (U) 6.0 [pH] Normal <8.5 [facility] Comment on above: Order Comment: Speci men Type: URINE SPECIMENOrdering Facility: [facility] Address: [address] [place] [address] Performed By: #### 6 30-4, 92795-7 ####[facility] LABCLIA [id number] [address], [facility] [place] Protein (U) [Mass/Vol] 3+ Abnormal Negative Cl [facility] Comment on above: Order Comment: Speci men Type: URINE SPECIMENOrdering Facility: [facility] Address: [address] [place] [address] Performed By: #### 6 30-4, 84551-4 ####[facility] LABCLIA [id number] [facility] [place] [address] [place] RBC LM.HPF (Urine sed) [#/Area] /[HPF] Abnormal 0-2 /HPF [facility] Comment on above: Order Comment: Speci men Type: URINE SPECIMENOrdering Facility: [facility] Address: [address] [place] [address] Performed By: #### 6 30-4, 67824-8 ####[facility]IA [id number] [place] [address] [place] Specific gravity (U) [Rel density] 1.019 Normal 1.005-1.030 [facility] Comment on above: Order Comment: Speci men Type: URINE SPECIMENOrdering Facility: [facility] Address: [address] [place] [address] Performed By: #### 6 30-4, 11577-2 ####[facility] [id number] [place] [address] [place] Urobilinogen Ql (U) 0.2 EU/dL Normal 0.2-1.0 EU/dL [facility] Comment on above: Order Comment: Speci men Type: URINE SPECIMENOrdering Facility: [facility] Address: [address] [place] [address] Performed By: #### 6 30-4, 09575-3 ####[facility] [id number] [place] [address] [place] WBC LM.HPF (Urine sed) [#/Area] /[HPF] Abnormal 0-5 /HPF [facility] Comment on above: Order Comment: Speci men Type: URINE SPECIMENOrdering Facility: [facility] Address: [address] [place] [address] Performed By: #### 6 30-4, 35181-9 ####[facility] LABIA [id number] [place] [id number] [place] ALLIED HEALTHon 11-11-2024 ALLIED HEALTH Normal [facility] ALLIED HEALTH Normal [facility] ANTI PLT FACTOR 4 ABon 04-10 -2025 Heparin induced platelet IgG Marco Antonio (S) [Interp] Negative Normal Negative [facility] Comment on above: Order Comment: Ezekiel ramirez Type: BLOOD SPECIMENOrdering Facility: [facility] Address: [address] [place] [address] Result Comment: No a nti-platelet factor 4 IgG antibody is detected by ANDERS assay.Heparin-induced thrombocytopenia (HIT) is unlikely, but should be excluded based on clinical factors. Performed By: #### P LATF4 ####[facility] [id number] [address] OF [facility] Platelet factor 4 Qn (PPP) 0.184 OD Normal <0.400 [facility] Comment on above: Order Comment: Ezekiel ramirez Type: BLOOD SPECIMENOrdering Facility: [facility] Address: [address] [place] [address] Result Comment: Not calculated Performed By: #### P LATF4 ####[facility] [id number] [address] [place] Albumin Fld-[facility] 5 Albumin (Body fld) [Mass/Vol] <0.2 Normal See Comment [facility] Comment on above: Order Comment: Ezekiel ramirez Type: FLUID SPECIMENOrdering Facility: [facility] Address: [address] [place] [address] Result Comment: Body Fluid Albumin may be [...] document C49A. PAULETTE Diaz: Clinical Laboratory Standards [place]: 2007.2. Amy JACKSON. Serum to ascites albumin gradient. UpToDate. 2015. Accessed on November 15, 2015.This test was developed, and its performance characteristics determined by the [facility] Department of Pathology and Laboratory Medicine. It has not been cleared or approved by the FDA. The [facility] Department of Pathology and Laboratory Medicine is regulated under CLIA as qualified to perform high-complexity testing. This test is used for clinical purposes. It should not be regarded as investigational or for research. Performed By: #### 1 747-5, 1795-4, 72592-6, 2881-1 ####[facility] LABCLIA [id number] [place] [address] [place] Fluid Nom (Body fld) Abdomen Normal [facility] Comment on above: Order Comment: Speci men Type: FLUID SPECIMENOrdering Facility: [facility] Address: [address] [place] [address] Performed By: #### 1 747-5, 1795-4, 01625-7, 2881-1 ####[facility] LABCLIA [id number] [place] [address] [place] Amylase Fld-cCncon 5 Amylase (Body fld) [Catalytic activity/Vol] 14 U/L Normal See Comment [facility] Comment on above: Order Comment: Speci james Type: FLUID SPECIMENOrdering Facility: [facility] Address: [address] [place] [address] Result Comment: PLEU RAL FLUIDS:Amylase measurement in [...] document C49-A. PAULETTE Diaz: Clinical Laboratory Standards [place]; 2007.3. Kelby HDZH, John RC, Star DJ. Use of cyst fluid CEA, CA19-9, and amylase for evaluation of pancreatic lesions. Clinical Biochemistry. 2009;42:6484-8806.This test was developed, and its performance characteristics determined by the [facility] Department of Pathology and Laboratory Medicine. It has not been cleared or approved by the FDA. The [facility] Department of Pathology and Laboratory Medicine is regulated under CLIA as qualified to perform high-complexity testing. This test is used for clinical purposes. It should not be regarded as investigational or for research. Performed By: #### 1 747-5, 1795-4, 19075-7, 2881-1 ####[facility] LABCLIA [id number] [place] [address] [place] Antithrombin Ag actual/philly l IA (PPP) [Relative mass conc]on 11-11-2024 Antithrombin Ag IA Qn (PPP) 32 % Low 80-120 [facility] Comment on above: Order Comment: Speci men Type: BLOOD SPECIMENOrdering Facility: [facility] Address: [address] [place] [address] Performed By: #### L [id number], HCOAG, 6303-2, 01182-0, 26078-8 ####[facility] LABIA [id number] [place] [address] [place] BODY FLUID CELL COUNTon 11-02 Clarity (Unsp spec) Clear Normal Clear [facility] Comment on above: Order Comment: Speci men Type: FLUID SPECIMENOrdering Facility: [facility] Address: [address], [place] [address] Performed By: #### C CBF, [id number] ####[facility] LABCLIA [id number] [facility] [id number] [address] [place] Color (Body fld) Colorless Normal Yellow [facility] Comment on above: Order Comment: Speci men Type: FLUID SPECIMENOrdering Facility: [facility] Address: [address] [place], [place] [address] Performed By: #### C CBF, [id number] ####[facility] LABCLIA [id number] [facility] [address] [place] [address] [place] RBC Manual cnt (Body fld) [#/Vol] 2000 /uL High <2000 [facility] Comment on above: Order Comment: Speci men Type: FLUID SPECIMENOrdering Facility: [facility] Address: [address] [place] [address] Performed By: #### C CBF, [id number] ####[facility] LABCLIA [id number] [facility] [address] [place] [address] [place] Specimen source Nom (Body fld) Abdomen Normal [facility] Comment on above: Order Comment: Speci men Type: FLUID SPECIMENOrdering Facility: [facility] Address: [address] [place] [address] Performed By: #### C CBF, [id number] ####[facility] LABCLIA [id number] [facility] [address], [facility] [place] WBC Manual cnt (Body fld) [#/Vol] 70 /uL Normal <1000 [facility] Comment on above: Order Comment: Speci men Type: FLUID SPECIMENOrdering Facility: [facility] Address: [address] [place], [place] [address] Performed By: #### C CBF, [id number] ####[facility] LABCLIA [id number] [facility] [address] [place] [address] [place] Bacteria Bld Culton 11-12-19 25 Bacteria identified Cx Nom (Bld) CULTURE, BLOOD: No growth 5 days GRAM STAIN: This blood culture had less than the recommended 8 ml per bottle, which could decrease the sensitivity of the test. Normal [facility] Comment on above: Performed By: #### 6 00-7 ####[facility] LABCLIA [id number] [address] [place] [address] [place] Bacteria identified Cx Nom (Bld) CULTURE, BLOOD: No growth 5 days Normal [facility] Comment on above: Performed By: #### 6 00-7 ####[facility] LABCLIA [id number] [address] [place] [address] [place] Bacteria Fld Culton 11-12-19 25 Bacteria identified Cx Nom (Body fld) CULTURE, BODY FLD: No growth GRAM STAIN: No organisms seen Many Polymorphonuclear leukocytes Gram stain performed on cytospun specimen. Gram stain from primary specimen Normal [facility] Comment on above: Performed By: #### 6 35-3, 611-4 ####[facility] LABCLIA [id number] [address] [place] [address] [place] Bacteria Spec Anaerobe Culto n 11-11-2024 Bacteria identified Anaer cx Nom (Unsp spec) Negative Normal [facility] Comment on above: Performed By: #### 6 35-3, 611-4 ####[facility] LABIA [id number] [address] [place] [address] [place] Basic metabolic 2000 panelon 11-11-2024 Anion gap [Moles/Vol] 12 mmol/L Normal 8-15 [facility] Comment on above: Order Comment: Speci men Type: BLOOD SPECIMENOrdering Facility: [facility] Address: [address] [place] [address] Performed By: #### 2 276-4, 06966-8, 77077-6, 38188-6, 2777-1, 48933-8 ####[facility] LABCLIA [id number] [address] [address] [place] Calcium [Mass/Vol] 9.1 mg/dL Normal 8.5-10.2 [facility] Comment on above: Order Comment: Speci men Type: BLOOD SPECIMENOrdering Facility: [facility] Address: [address] [place], [place] [address] Performed By: #### 2 276-4, 22122-4, 70247-1, 57623-2, 2777-1, 09124-4 ####[facility] LABCLIA [id number] [address] [address] [place] Chloride [Moles/Vol] 97 mmol/L Low 98-107 [facility] Comment on above: Order Comment: Speci men Type: BLOOD SPECIMENOrdering Facility: [facility] Address: [address] [place] [address] Performed By: #### 2 276-4, 43165-8, 11048-4, 16202-8, 277-1, 75423-5 ####[facility] LABCLIA [id number] [address] [address] [place] CO2 [Moles/Vol] 14 mmol/L Low 22-30 [facility] Comment on above: Order Comment: Speci men Type: BLOOD SPECIMENOrdering Facility: [facility] Address: [address] [place], [place] [address] Performed By: #### 2 276-4, 42940-5, 59135-5, 46580-5, 2776-1, 54314-0 ####[facility] LABCLIA [id number] [address] [address] [place] Creatinine [Mass/Vol] 1.35 mg/dL High 0.73-1.22 [facility] Comment on above: Order Comment: Speci men Type: BLOOD SPECIMENOrdering Facility: [facility] Address: [address] [place], [place] [address] Performed By: #### 2 276-4, 34046-6, 41233-3, 39154-2, 7-1, 55934-2 ####[facility] [id number] [place] [address] [place] Creatinine and Glomerular filtration rate.predicted panel (S/P/Bld) 61 mL/min/1.73m??? Normal >=60 [facility] Comment on above: Order Comment: Ezekiel ramirez Type: BLOOD SPECIMENOrdering Facility: [facility] Address: [address] [place] [address] Result Comment: Patric mated Glomerular Filtration Rate [...] actual GFR. Performed By: #### 2 276-4, 03341-3, 29617-1, 47256-2, 2777-1, 50173-1 ####[facility] LABIA [id number] [address] [address] [place] Glucose [Mass/Vol] 292 mg/dL High 74-99 [facility] Comment on above: Order Comment: Ezekiel ramirez Type: BLOOD SPECIMENOrdering Facility: [facility] Address: [address] [place] [address] Result Comment: The [place] [employer] (ADA) provides guidance for cutoff [...] Standards of Medical Care in Diabetes 2016, [place] [employer]. Diabetes Care. 2016.39(Suppl 1). Performed By: #### 2 276-4, 84263-0, 85145-0, 09389-7, 2777-1, ####[facility] LABCLIA [id number] [address] [address] [place] Potassium [Moles/Vol] 3.6 mmol/L Low 3.7-5.1 [facility] Comment on above: Order Comment: Speci men Type: BLOOD SPECIMENOrdering Facility: [facility] Address: [address] [place] [address] Performed By: #### 2 276-4, 57697-5, 20443-5, 29985-8, 2776-1, ####[facility] LABCLIA [id number] [place] [address] [place] Sodium [Moles/Vol] 123 mmol/L Low 136-144 [facility] Comment on above: Order Comment: Speci men Type: BLOOD SPECIMENOrdering Facility: [facility] Address: [address] [place] [address] Performed By: #### 2 276-4, 52642-5, 37413-3, 17798-0, 2776-1, ####[facility] LABIA [id number] [place] [id number] [place] Urea nitrogen [Mass/Vol] 22 mg/dL Normal 9-24 [facility] Comment on above: Order Comment: Speci men Type: BLOOD SPECIMENOrdering Facility: [facility] Address: [address] [place], [place] [address] Performed By: #### 2 276-4, 57959-8, 72747-4, 84528-9, 2776-1, ####[facility] LABCLIA [id number] [place] [id number] [place] CARDIOLIPIN IGG ABSon 2024 Cardiolipin IgG IA Qn (S) <9.0 Normal <15.0 [facility] Comment on above: Order Comment: Speci men Type: BLOOD SPECIMENOrdering Facility: [facility] Address: [address] [place] [address] Result Comment: <15 GPL [id number] GPL Indeterminate>20 GPL PositiveThe following results were obtained with the [employer] QUANTA Lite TEZ IgG III ANDERS. Cardiolipin IgG values obtained with the different manufacturers' assay methods may not be used interchangeably. The magnitude of the reported IgG levels cannot be correlated to an endpoint titer. Performed By: #### 5 [id number] CARDIM ####[facility] [place] [id number] [address] OF [facility] CARDIOLIPIN IGM ABSon 2024 Cardiolipin IgM IA Qn (S) <9.0 Normal <12.5 [facility] Comment on above: Order Comment: Speci james Type: BLOOD SPECIMENOrdering Facility: [facility] Address: [address] [place] [address] Result Comment: <12. 5 MPL Fecmsbvo17.5-20 MPL Indeterminate>20 MPL PositiveThe following results were obtained with the [employer] QUANTA Lite TEZ IgM III ANDERS. Cardiolipin IgM values obtained with the different manufacturers' assay methods may not be used interchangeably. The magnitude of the reported IgM levels cannot be correlated to an endpoint titer.??? Performed By: #### 5 [id number] CARDIM ####[facility] [id number] [address] [place] CASE MANAGEMon 11-11-2024 CASE MANAGEM Normal [facility] CBC W Auto Differential pane l (Bld)on 11-11-2024 Basophils (Bld) [#/Vol] 0.04 10*3/uL Normal <0.11 [facility] Comment on above: Order Comment: Speci men Type: BLOOD SPECIMENOrdering Facility: [facility] Address: [address] [place] [address] Performed By: #### I PFR, 32658-9, 31794-3 ####[facility] LABCLIA [id number] [place] [address] [place] Basophils/100 WBC (Bld) 0.4 % Normal [facility] Comment on above: Order Comment: Speci men Type: BLOOD SPECIMENOrdering Facility: [facility] Address: [address] [place] [address] Performed By: #### I PFR, 03976-0, ####[facility] LABCLIA [id number] [address], [place] [address] [place] Differential cell count method Nom (Bld) Auto Normal [facility] Comment on above: Order Comment: Speci men Type: BLOOD SPECIMENOrdering Facility: [facility] Address: [address] [place] [address] Performed By: #### I PFR, 53400-7, ####[facility] LABCLIA [id number] [place] [address] [place] Eosinophils (Bld) [#/Vol] 0.35 10*3/uL Normal <0.46 [facility] Comment on above: Order Comment: Speci men Type: BLOOD SPECIMENOrdering Facility: [facility] Address: [address] [place] [address] Performed By: #### I PFR, 02794-8, ####[facility] LABCLIA [id number] [address] [place] Eosinophils/100 WBC (Bld) 3.4 % Normal [facility] Comment on above: Order Comment: Speci men Type: BLOOD SPECIMENOrdering Facility: [facility] Address: [address] [place] [address] Performed By: #### I PFR, 02533-0, 40675-1 ####[facility] LABCLIA [id number] [place] [address] [place] Erythrocyte distribution width (RBC) [Ratio] 17.4 % High 11.5-15.0 [facility] Comment on above: Order Comment: Speci men Type: BLOOD SPECIMENOrdering Facility: [facility] Address: [address] [place] [address] Performed By: #### I PFR, 13607-0, 80567-9 ####[facility] LABCLIA [id number] [place] [address] [place] Hematocrit (Bld) [Volume fraction] 24.6 % Low 39.0-51.0 [facility] Comment on above: Order Comment: Speci men Type: BLOOD SPECIMENOrdering Facility: [facility] Address: [address] [place] [address] Performed By: #### I PFR, 10331-7, 03054-8 ####[facility] LABCLIA [id number] [place] [address] [place] Hemoglobin (Bld) [Mass/Vol] 8.4 g/dL Low 13.0-17.0 [facility] Comment on above: Order Comment: Speci men Type: BLOOD SPECIMENOrdering Facility: [facility] Address: [address] [place] [address] Performed By: #### I PFR, 56242-6, 36610-4 ####[facility] LABCLIA [id number] [place] [address] [place] Immature granulocytes (Bld) [#/Vol] 0.08 10*3/uL Normal <0.10 [facility] Comment on above: Order Comment: Speci men Type: BLOOD SPECIMENOrdering Facility: [facility] Address: [address] [place] [address] Performed By: #### I PFR, 90432-9, 09554-1 ####[facility] LABCLIA [id number] [place] [id number] [place] Immature granulocytes/100 WBC (Bld) 0.8 % Normal [facility] Comment on above: Order Comment: Speci men Type: BLOOD SPECIMENOrdering Facility: [facility] Address: [address] [place] [address] Performed By: #### I PFR, 82826-6, ####[facility] LABCLIA [id number] [place] [address] [place] Lymphocytes (Bld) [#/Vol] 0.99 10*3/uL Low 1.00-4.00 [facility] Comment on above: Order Comment: Speci men Type: BLOOD SPECIMENOrdering Facility: [facility] Address: [address] [place] [address] Performed By: #### I PFR, 84488-7, ####[facility] LABCLIA [id number] [place] [address] [place] Lymphocytes/100 WBC (Bld) 9.5 % Normal [facility] Comment on above: Order Comment: Speci men Type: BLOOD SPECIMENOrdering Facility: [facility] Address: [address] [place] [address] Performed By: #### I PFR, 63270-5, ####[facility] LABCLIA [id number] [place] [address] [place] MCH (RBC) [Entitic mass] 31.9 pg Normal 26.0-34.0 [facility] Comment on above: Order Comment: Speci men Type: BLOOD SPECIMENOrdering Facility: [facility] Address: [address] [place] [address] Performed By: #### I PFR, 28029-1, ####[facility] LABCLIA [id number] [place] [id number] [place] MCHC (RBC) [Mass/Vol] 34.1 g/dL Normal 30.5-36.0 [facility] Comment on above: Order Comment: Speci men Type: BLOOD SPECIMENOrdering Facility: [facility] Address: [address] [place], [place] [address] Performed By: #### I PFR, 90356-3, 25834-9 ####[facility] LABCLIA [id number] [address] [address] [place] MCV (RBC) [Entitic vol] 93.5 fL Normal 80.0-100.0 C [facility] Comment on above: Order Comment: Speci men Type: BLOOD SPECIMENOrdering Facility: [facility] Address: [address] [place] [address] Performed By: #### I PFR, 98522-7, 61439-5 ####[facility] LABCLIA [id number] [place] [address] [place] Monocytes (Bld) [#/Vol] 0.97 10*3/uL High <0.87 [facility] Comment on above: Order Comment: Speci men Type: BLOOD SPECIMENOrdering Facility: [facility] Address: [address] [place] [address] Performed By: #### I PFR, 28109-2, 05059-5 ####[facility] LABCLIA [id number] [place] [address] [place] Monocytes/100 WBC (Bld) 9.3 % Normal C [facility] Comment on above: Order Comment: Speci men Type: BLOOD SPECIMENOrdering Facility: [facility] Address: [address] [place] [address] Performed By: #### I PFR, 04776-4, 76917-6 ####[facility] LABCLIA [id number] [address] [address] [place] Neutrophils (Bld) [#/Vol] 8.00 10*3/uL High 1.45-7.50 [facility] Comment on above: Order Comment: Speci men Type: BLOOD SPECIMENOrdering Facility: [facility] Address: [address] [place] [address] Performed By: #### I PFR, 92944-2, 10912-3 ####[facility] LABCLIA [id number] [place] [id number] [place] Neutrophils/100 WBC (Bld) 76.6 % Normal [facility] Comment on above: Order Comment: Speci men Type: BLOOD SPECIMENOrdering Facility: [facility] Address: [address] [place] [address] Performed By: #### I PFR, 50660-8, 97640-1 ####[facility] LABCLIA [id number] [place] [address] [place] Nucleated RBC (Bld) [#/Vol] 10*3/uL Normal <0.01 [facility] Comment on above: Order Comment: Speci men Type: BLOOD SPECIMENOrdering Facility: [facility] Address: [address] [place] [address] Performed By: #### I PFR, 08364-3, 67281-6 ####[facility] LABIA [id number] [place] [address] [place] Nucleated RBC/100 WBC (Bld) [Ratio] 0.0 /100 WBC Normal [facility] Comment on above: Order Comment: Speci men Type: BLOOD SPECIMENOrdering Facility: [facility] Address: [address] [place] [address] Performed By: #### I PFR, 51759-8, 91638-4 ####[facility] LABIA [id number] [place] [id number] [place] Platelet mean volume (Bld) [Entitic vol] 11.5 fL Normal 9.0-12.7 [facility] Comment on above: Order Comment: Speci men Type: BLOOD SPECIMENOrdering Facility: [facility] Address: [address] [place] [address] Performed By: #### I PFR, 83415-8, 12734-5 ####[facility] LABCLIA [id number] [address] [address] [place] Platelets (Bld) [#/Vol] 43 10*3/uL Low 150-400 C [facility] Comment on above: Order Comment: Speci men Type: BLOOD SPECIMENOrdering Facility: [facility] Address: [address] [place] [address] Performed By: #### I PFR, 47259-1, 65428-3 ####[facility] LABCLIA [id number] [address] [address] [place] RBC (Bld) [#/Vol] 2.63 10*6/uL Low 4.20-6.00 [facility] Comment on above: Order Comment: Speci men Type: BLOOD SPECIMENOrdering Facility: [facility] Address: [address] [place] [address] Performed By: #### I PFR, 25708-7, 10021-8 ####[facility] LABIA [id number] [place] [id number] [place] WBC (Bld) [#/Vol] 10.43 10*3/uL Normal 3.70-11.00 [facility] Comment on above: Order Comment: Speci men Type: BLOOD SPECIMENOrdering Facility: [facility] Address: [address] [place] [address] Performed By: #### I PFR, 96464-0, 86140-8 ####[facility] LABIA [id number] [address] [address] [place] Basophils (Bld) [#/Vol] 0.06 10*3/uL Normal <0.11 [facility] Comment on above: Order Comment: Speci men Type: BLOOD SPECIMENOrdering Facility: [facility] Address: [address] [place] [address] Performed By: #### 5 5454-3, 87808-9 ####[facility] LABCLIA [id number] [facility] [address], [facility] [place] Basophils/100 WBC (Bld) 0.4 % Normal [facility] Comment on above: Order Comment: Speci men Type: BLOOD SPECIMENOrdering Facility: [facility] Address: [address] [place] [address] Performed By: #### 5 5454-3, 24489-9 ####[facility] LABCLIA [id number] [facility] [address], [place] [address] [place] Differential cell count method Nom (Bld) Auto Normal [facility] Comment on above: Order Comment: Speci men Type: BLOOD SPECIMENOrdering Facility: [facility] Address: [address] [place] [address] Performed By: #### 5 5454-3, 50057-4 ####[facility] LABCLIA [id number] [place] [address] [place] Eosinophils (Bld) [#/Vol] 0.40 10*3/uL Normal <0.46 [facility] Comment on above: Order Comment: Speci men Type: BLOOD SPECIMENOrdering Facility: [facility] Address: [address] [place] [address] Performed By: #### 5 5454-3, 66136-3 ####[facility] LABCLIA [id number] [address] [place] Eosinophils/100 WBC (Bld) 2.5 % Normal [facility] Comment on above: Order Comment: Speci men Type: BLOOD SPECIMENOrdering Facility: [facility] Address: [address] [place] [address] Performed By: #### 5 5454-3, 95786-2 ####[facility] LABCLIA [id number] [place] [address] [place] Erythrocyte distribution width (RBC) [Ratio] 18.0 % High 11.5-15.0 [facility] Comment on above: Order Comment: Speci men Type: BLOOD SPECIMENOrdering Facility: [facility] Address: [address] [place] [address] Performed By: #### 5 5454-3, 65288-4 ####[facility] LABCLIA [id number] [place] [address] [place] Hematocrit (Bld) [Volume fraction] 30.4 % Low 39.0-51.0 [facility] Comment on above: Order Comment: Speci men Type: BLOOD SPECIMENOrdering Facility: [facility] Address: [address] [place] [address] Performed By: #### 5 5454-3, 00248-5 ####[facility] LABCLIA [id number] [place] [address] [place] Hemoglobin (Bld) [Mass/Vol] 10.2 g/dL Low 13.0-17.0 [facility] Comment on above: Order Comment: Speci men Type: BLOOD SPECIMENOrdering Facility: [facility] Address: [address] [place] [address] Performed By: #### 5 5454-3, 61583-2 ####[facility] LABCLIA [id number] [place] [address] [place] Immature granulocytes (Bld) [#/Vol] 0.18 10*3/uL High <0.10 [facility] Comment on above: Order Comment: Speci men Type: BLOOD SPECIMENOrdering Facility: [facility] Address: [address] [place] [address] Performed By: #### 5 5454-3, 29498-4 ####[facility] LABCLIA [id number] [place] [address] [place] Immature granulocytes/100 WBC (Bld) 1.1 % Normal [facility] Comment on above: Order Comment: Speci men Type: BLOOD SPECIMENOrdering Facility: [facility] Address: [address] [place] [address] Performed By: #### 5 5454-3, 61992-7 ####[facility] LABIA [id number] [place] [address] [place] Lymphocytes (Bld) [#/Vol] 1.19 10*3/uL Normal 1.00-4.00 [facility] Comment on above: Order Comment: Speci men Type: BLOOD SPECIMENOrdering Facility: [facility] Address: [address] [place] [address] Performed By: #### 5 5454-3, 48412-3 ####[facility] LABIA [id number] [place] [address] [place] Lymphocytes/100 WBC (Bld) 7.6 % Normal [facility] Comment on above: Order Comment: Speci men Type: BLOOD SPECIMENOrdering Facility: [facility] Address: [address] [place] [address] Performed By: #### 5 5454-3, 54560-7 ####[facility] LABIA [id number] [place] [address] [place] MCH (RBC) [Entitic mass] 31.3 pg Normal 26.0-34.0 [facility] Comment on above: Order Comment: Speci men Type: BLOOD SPECIMENOrdering Facility: [facility] Address: [address] [place] [address] Performed By: #### 5 5454-3, 56070-3 ####[facility] LABIA [id number] [place] [id number] [place] MCHC (RBC) [Mass/Vol] 33.6 g/dL Normal 30.5-36.0 [facility] Comment on above: Order Comment: Speci men Type: BLOOD SPECIMENOrdering Facility: [facility] Address: [address] [place] [address] Performed By: #### 5 5454-3, 28872-2 ####[facility] LABCLIA [id number] [place] [address] [place] MCV (RBC) [Entitic vol] 93.3 fL Normal 80.0-100.0 C [facility] Comment on above: Order Comment: Speci men Type: BLOOD SPECIMENOrdering Facility: [facility] Address: [address] [place] [address] Performed By: #### 5 5454-3, 79631-8 ####[facility] LABCLIA [id number] [place] [address] [place] Monocytes (Bld) [#/Vol] 1.36 10*3/uL High <0.87 [facility] Comment on above: Order Comment: Speci men Type: BLOOD SPECIMENOrdering Facility: [facility] Address: [address] [place] [address] Performed By: #### 5 5454-3, 32473-6 ####[facility] LABIA [id number] [place] [address] [place] Monocytes/100 WBC (Bld) 8.6 % Normal [facility] Comment on above: Order Comment: Speci men Type: BLOOD SPECIMENOrdering Facility: [facility] Address: [address] [place] [address] Performed By: #### 5 5454-3, 67526-5 ####[facility] LABCLIA [id number] [place] [id number] [place] Neutrophils (Bld) [#/Vol] 12.55 10*3/uL High 1.45-7.50 [facility] Comment on above: Order Comment: Speci men Type: BLOOD SPECIMENOrdering Facility: [facility] Address: [address] [place] [address] Performed By: #### 5 5454-3, 99459-8 ####[facility] LABCLIA [id number] [place] [address] [place] Neutrophils/100 WBC (Bld) 79.8 % Normal [facility] Comment on above: Order Comment: Speci men Type: BLOOD SPECIMENOrdering Facility: [facility] Address: [address] [place] [address] Performed By: #### 5 5454-3, 57416-8 ####[facility] LABIA [id number] [place] [address] [place] Nucleated RBC (Bld) [#/Vol] 10*3/uL Normal <0.01 [facility] Comment on above: Order Comment: Speci men Type: BLOOD SPECIMENOrdering Facility: [facility] Address: [address] [place] [address] Performed By: #### 5 5454-3, 59057-8 ####[facility] LABIA [id number] [place] [address] [place] Nucleated RBC/100 WBC (Bld) [Ratio] 0.0 /100 WBC Normal [facility] Comment on above: Order Comment: Speci men Type: BLOOD SPECIMENOrdering Facility: [facility] Address: [address] [place] [address] Performed By: #### 5 5454-3, 41129-9 ####[facility] LABIA [id number] [place] [address] [place] Platelet mean volume (Bld) [Entitic vol] 12.1 fL Normal 9.0-12.7 [facility] Comment on above: Order Comment: Speci men Type: BLOOD SPECIMENOrdering Facility: [facility] Address: [address] [place] [address] Performed By: #### 5 5454-3, 63663-6 ####[facility] LABIA [id number] [place] [address] [place] Platelets (Bld) [#/Vol] 52 10*3/uL Low 150-400 C [facility] Comment on above: Order Comment: Speci men Type: BLOOD SPECIMENOrdering Facility: [facility] Address: [address] [place] [address] Result Comment: Resu lts checked and verified.No clot detected. Performed By: #### 5 5454-3, 04990-3 ####[facility] LABCLIA [id number] [place] [address] [place] RBC (Bld) [#/Vol] 3.26 10*6/uL Low 4.20-6.00 [facility] Comment on above: Order Comment: Speci men Type: BLOOD SPECIMENOrdering Facility: [facility] Address: [address] [place] [address] Performed By: #### 5 5454-3, 27478-9 ####[facility] LABCLIA [id number] [place] [address] [place] WBC (Bld) [#/Vol] 15.74 10*3/uL High 3.70-11.00 [facility] Comment on above: Order Comment: Speci men Type: BLOOD SPECIMENOrdering Facility: [facility] Address: [address] [place] [address] Performed By: #### 5 [id number], [id number] ####[facility] LABCLIA [id number] [place] [address] [place] CEA SerPl-mCncon 11-11-2024 Carcinoembryonic Ag [Mass/Vol] 13.0 ng/mL High <=2.9 [facility] Comment on above: Order Comment: Speci men Type: BLOOD SPECIMENOrdering Facility: [facility] Address: [address] [place] [address] Result Comment: Carc inoembryonic antigen test is used as an aid in monitoring response to treatment or recurrence in patients with established colorectal, breast, lung, prostatic, pancreatic, and ovarian carcinomas. Clinical correlation is required.The Carcinoembryonic antigen test was performed using the Fiordaliza FreshT Unicel DXI paramagnetic particle chemiluminescent immunoassay method. Results obtained with different assay methods or kits cannot be used interchangeably. Performed By: #### 2 039-6, 99765-8, 2532-0 ####[facility] LABIA [id number] [place] [address] [place] COAG CORE PANEL BLDon 2024 aPTT Coag (PPP) [Time] 41.3 s High 23.0-32.4 [facility] Comment on above: Order Comment: Ezekiel ramirez Type: BLOOD SPECIMENOrdering Facility: [facility] Address: [address] [place] [address] Performed By: #### C ORPNL ####[facility] [id number] [place] [address] [place] Fibrinogen Coag (PPP) [Mass/Vol] 88 mg/dL Low 200-400 [facility] Comment on above: Order Comment: Ezekiel ramirez Type: BLOOD SPECIMENOrdering Facility: [facility] Address: [address] [place] [address] Result Comment: Lino daniel checked for clot.Result rechecked. Performed By: #### C ORPNL ####[facility] [id number] [place] [address] [place] INR Coag (PPP) [Relative time] 2.1 {INR} High 0.9-1.3 [facility] Comment on above: Order Comment: Ezekiel ramirez Type: BLOOD SPECIMENOrdering Facility: [facility] Address: [address] [place] [address] Result Comment: Sarah min K Antagonist (VKA) Therapeutic Range: INR 2 to 3 (Target INR of 2.5)Note: For patients treated with VKA drugs, such as warfarin, the [place] [employer] 2012 Guideline recommends [...] Chest 2012, 141:7S-47SNishimura RA, et al. [facility] 2017, 70: 252-289 Performed By: #### C ORPNL ####[facility] [id number] [place] [address] [place] PT Coag (PPP) [Time] 21.8 s High 9.7-13.0 [facility] Comment on above: Order Comment: Speci men Type: BLOOD SPECIMENOrdering Facility: [facility] Address: [address] [place] [address] Performed By: #### C ORPNL ####[facility] [id number] [place] [address] [place] CONSULTon 11-11-2024 CONSULT Normal [facility] CONSULT Normal [facility] CRP SerPl-mCncon 11-11-2024 CRP [Mass/Vol] 0.5 mg/dL Normal <0.9 [facility] Comment on above: Order Comment: Meggani james Type: BLOOD SPECIMENOrdering Facility: [facility] Address: [address] [place] [address] Performed By: #### D ASHLEY, 1986-12 ####[facility] [id number] [place] [address] [place] CYTOLOGY NON-GYNon AP DISCLAIMER Normal [facility] Comment on above: Order Comment: Ezekiel ramirez Type: FLUID SPECIMENOrdering Facility: [facility] Address: [address] [place] [address] Result Comment: Shellie pugh Developed Test (LDT) Disclaimer:Performance characteristics of immunohistochemical, immunofluorescent, and chromogenic in-situ hybridization tests have been determined by the performing laboratory within [facility]'s [facility] Path[facility] and Laboratory Medicine Department ([facility], [facility], [facility], [facility], [facility], [facility], or [facility]) in a manner consistent with CLIA [...] Performed By: #### C YTONON ####[facility] LABCLIA [id number] [place] [address] [place] CASE REPORT Normal [facility] Comment on above: Order Comment: Speci men Type: FLUID SPECIMENOrdering Facility: [facility] Address: [address] [place] [address] Result Comment: [facility] Cytology Report Case: [id number] Provider: Yaritza Juarez, Collected: 11/11/2024 05:14 PM FENDER MECHANIC.CNPOrdering Location: [place] [address] Received: 11/11/2024 08:30 PMPathologist: Sameer Fournier MDSpecimen: Abdomen Performed By: #### C YTONON ####[facility] LABCLIA [id number] [place] [address] [place] CLINICAL HISTORY paracentesis fluid Normal [facility] Comment on above: Order Comment: Speci men Type: FLUID SPECIMENOrdering Facility: [facility] Address: [address] [place] [address] Performed By: #### C YTONON ####[facility] LABCLIA [id number] [place] [address] [place] FINAL DIAGNOSIS Normal [facility] Comment on above: Order Comment: Speci men Type: FLUID SPECIMENOrdering Facility: [facility] Address: [address] [place] [address] Result Comment: A - Abdomen, Fluid Negative for malignant cells.The following cell blocks were associated with this case:A1\X09\Cell Block, Alcohol Fixed\X09\ at 1034 EDT Performed By: #### C YTONON ####[facility] LABCLIA [id number] [place] [address] [place] FINAL PERFORMING LAB Normal [facility] Comment on above: Order Comment: Speci men Type: FLUID SPECIMENOrdering Facility: [facility] Address: [address] [place] [address] Result Comment: Tech nical component, therapist's assistant screening performed at: [facility], [address] [place] [address] CLIA: [id number] interpretation performed at: [facility], [address] [place] [address] CLIA# [id number] Director: Titi Voss MD Performed By: #### C YTONON ####[facility] LABCLIA [id number] [address] [place] GROSS DESCRIPTION A. Abdomen Normal [facility] Comment on above: Order Comment: Speci men Type: FLUID SPECIMENOrdering Facility: [facility] Address: [address] [place] [address] Result Comment: 1450 cc opaque lexis fluid . ThinPrep and Cell Block prepared. Performed By: #### C YTONON ####[facility] LABCLIA [id number] [place] [address] [place] Cancer Ag19-9 SerPl-aCncon 0 11-11-2024 Cancer Ag 19-9 Qn <2.0 Normal <36.0 [facility] Comment on above: Order Comment: Speci men Type: BLOOD SPECIMENOrdering Facility: [facility] Address: [address] [place] [address] Result Comment: [facility] er antigen 19-9 test is used as an aid in monitoring response to treatment or recurrence in patients with established pancreatic, hepatobiliary, or gastrointestinal malignancies. Clinical correlation is required.The CA 19-9 Antigen test was performed using the Fiordaliza FreshT Unicel DXI paramagnetic particle chemiluminescent immunoassay method. Results obtained with different assay methods or kits cannot be used interchangeably. Performed By: #### 2 039-6, 65964-2, 2532-0 ####[facility] LABIA [id number] [place] [address] [place] Cardiolipin IgA Ser IA-aCnco n 11-11-2024 Cardiolipin IgA IA Qn (S) 9.7 [APL'U] Normal <12.0 [facility] Comment on above: Order Comment: Speci men Type: BLOOD SPECIMENOrdering Facility: [facility] Address: [address] [place] [address] Result Comment: <12 APL [id number] APL Indeterminate>20 APL PositiveThe following results were obtained with the [employer] QUANTA Lite TEZ IgA III ANDERS. Cardiolipin IgA values obtained with the different manufacturers' assay methods may not be used interchangeably. The magnitude of the reported IgA levels cannot be correlated to an endpoint titer. Performed By: #### 5 0765, MELVIN ARMENTA ####[facility] [id number] [place] [address] [place] DIRECT BILIRUBIN BLOODon Bilirubin.conjugated [Mass/Vol] 1.1 mg/dL High <0.3 [facility] Comment on above: Order Comment: Speci men Type: BLOOD SPECIMENOrdering Facility: [facility] Address: [address] [place] [address] Performed By: #### D ASHLEY, 1986-12 ####[facility] LABIA [id number] [place] [address] [place] ECG COMPLETEon 11-11-2024 ECG COMPLETE Normal [facility] [id number] 11-11-2024 ECG01 Normal [facility] Ferritin SerPl-mCncon 2024 Ferritin [Mass/Vol] 82.4 ng/mL Normal 30.3-565.7 [facility] Comment on above: Order Comment: Speci men Type: BLOOD SPECIMENOrdering Facility: [facility] Address: [address] [place] [address] Performed By: #### 2 276-4, 95909-6, 23408-6, 27319-6, 2777-1, 35928-3 ####[facility] LABCLIA [id number] [place] [address] [place] Fibrinogen PPP-mCncon 2024 Fibrinogen Coag (PPP) [Mass/Vol] 90 mg/dL Low 200-400 [facility] Comment on above: Order Comment: Speci men Type: BLOOD SPECIMENOrdering Facility: [facility] Address: [address] [place] [address] Result Comment: Samp le checked for clot.Result rechecked. Performed By: #### 3 255-7, 25143-7 ####[facility] LABCLIA [id number] [place] [address] [place] HISTORY PHYSICALon HISTORY PHYSICAL Normal [facility] HYPERCOAG PANELon 11-11-2024 Activated protein C resistance Coag (PPP) [Time ratio] 2.10 Ratio Normal >1.96 [facility] Comment on above: Order Comment: Speci men Type: BLOOD SPECIMENOrdering Facility: [facility] Address: [address] [place] [address] Performed By: #### L [id number], HCOAG, 6303-2, 60492-2, 09318-8 ####[facility] LABCLIA [id number] [place] [address] [place] Antithrombin actual/normal Chromogenic method (PPP) [Rel catalytic activity/Vol] 30 % Low 84-138 [facility] Comment on above: Order Comment: Speci men Type: BLOOD SPECIMENOrdering Facility: [facility] Address: [address] [place] [address] Performed By: #### L [id number], HCOAG, 6303-2, 41775-8, 54615-2 ####[facility] LABCLIA [id number] [place] [address] [place] aPTT Coag (Bld) [Time] 47.9 s High 24.0-35.1 [facility] Comment on above: Order Comment: Speci men Type: BLOOD SPECIMENOrdering Facility: [facility] Address: [address] [place] [address] Performed By: #### L [id number], HCOAG, 6303-2, 97739-8, 47905-9 ####[facility] LABIA [id number] [place] [address] [place] aPTT W excess hexagonal phase phospholipid Coag (PPP) [Time] 36.5 seconds Normal 34.0-51.8 [facility] Comment on above: Order Comment: Speci men Type: BLOOD SPECIMENOrdering Facility: [facility] Address: [address] [place] [address] Performed By: #### L [id number], HCOAG, 6303-2, 81379-4, 57511-9 ####[facility] LABIA [id number] [place] [address] [place] aPTT-LA w 1:1 PNP Coag (PPP) [Time] 32.5 seconds Normal <33.2 [facility] Comment on above: Order Comment: Speci men Type: BLOOD SPECIMENOrdering Facility: [facility] Address: [address] [place] [address] Result Comment: This test was developed, and its performance characteristics determined by the [facility] Department of Pathology and Laboratory Medicine. It has not been cleared or approved by the FDA. The [facility] Department of Pathology and Laboratory Medicine is regulated under CLIA as qualified to perform high-complexity testing. This test is used for clinical purposes. It should not be regarded as investigational or for research. Performed By: #### L [id number], HCOAG, 6303-2, 36124-8, 32594-4 ####[facility] LABCLIA [id number] [address] [address] [place] Coagulation factor VIII activity actual/normal Coag (PPP) [Relative time] 332 % High 50-173 [facility] Comment on above: Order Comment: Speci men Type: BLOOD SPECIMENOrdering Facility: [facility] Address: [address] [place] [address] Performed By: #### L [id number], HCOAG, 6303-2, 77133-0, 47514-9 ####[facility] [id number] [place] [address] [place] Coagulation factor X activated act Coag Qn (PPP) <0.10 Normal <0.10 [facility] Comment on above: Order Comment: Speci james Type: BLOOD SPECIMENOrdering Facility: [facility] Address: [address] [place] [address] Result Comment: This test was developed, and its performance characteristics determined by the [facility] Department of Pathology and Laboratory Medicine. It has not been cleared or approved by the FDA. The [facility] Department of Pathology and Laboratory Medicine is regulated under CLIA as qualified to perform high-complexity testing. This test is used for clinical purposes. It should not be regarded as investigational or for research. Performed By: #### L [id number], HCOAG, 6303-2, 45184-7, 22067-5 ####[facility] LABIA [id number] [address] [address] [place] Delta dRVVT Coag (PPP) [Time diff] 2.2 delta seconds Normal <7.1 [facility] Comment on above: Order Comment: Speci men Type: BLOOD SPECIMENOrdering Facility: [facility] Address: [address] [place] [address] Performed By: #### L [id number], HCOAG, 6303-2, 35826-9, 78170-5 ####[facility] LABCLIA [id number] [place] [address] [place] dRVVT W excess hexagonal phase phospholipid actual/normal Coag (PPP) [Relative time] 34.3 seconds Normal 34.2-47.9 [facility] Comment on above: Order Comment: Speci men Type: BLOOD SPECIMENOrdering Facility: [facility] Address: [address] [place] [address] Performed By: #### L [id number], HCOAG, 6303-2, 47767-3, 99822-0 ####[facility] LABIA [id number] [place] [address] [place] Protein C actual/normal Coag (PPP) [Relative time] 24 % Low 76-147 [facility] Comment on above: Order Comment: Speci men Type: BLOOD SPECIMENOrdering Facility: [facility] Address: [address] [place] [address] Performed By: #### L [id number], HCOAG, 6303-2, 32496-3, 38071-6 ####[facility] LABIA [id number] [place] [address] [place] Protein S actual/normal Coag (PPP) [Relative time] 28 % Low 59-152 [facility] Comment on above: Order Comment: Speci men Type: BLOOD SPECIMENOrdering Facility: [facility] Address: [address] [place] [address] Performed By: #### L [id number], HCOAG, 6303-2, 54013-9, 86369-8 ####[facility] LABIA [id number] [place] [address] [place] Protein S Free Ag actual/normal [place] (PPP) [Relative mass conc] 45 % Low 55-148 [facility] Comment on above: Order Comment: Speci men Type: BLOOD SPECIMENOrdering Facility: [facility] Address: [address] [place] [address] Performed By: #### L [id number], HCOAG, 6303-2, 04273-7, 52979-4 ####[facility] LABCLIA [id number] [address] [address] [place] Thrombin time Coag (PPP) [Time] 20.0 seconds High <18.6 [facility] Comment on above: Order Comment: Ezekiel james Type: BLOOD SPECIMENOrdering Facility: [facility] Address: [address] [place] [address] Performed By: #### L [id number], HCOAG, 6303-2, 49235-6, 70041-2 ####[facility] LABCLIA [id number] [place] [address] [place] HYPERCOAG PANEL INTERPon INTERPRETATION (HYPERCOAG) Normal [facility] Comment on above: Order Comment: Megganhelder ramirez Type: BLOOD SPECIMENOrdering Facility: [facility] Address: [address] [place] [address] Result Comment: Amisha gallegos - see comment [...] negative for the c.*97G>A variant (legacy name [id number]>A) in the 3' untranslated region of the [...] phase phospholipid neutralization. Performed By: #### L [id number], HCOAG, 6303-2, 12411-6, 68547-9 ####[facility] LABCLIA [id number] [address] [address] [place] Pathologist name Reviewed by Julia Howell M.D., Ph.D Normal [facility] Comment on above: Order Comment: Speci men Type: BLOOD SPECIMENOrdering Facility: [facility] Address: [address] [place] [address] Performed By: #### L [id number], HCOAG, 6303-2, 13089-1, 99076-7 ####[facility] LABCLIA [id number] [address] [place] [address] [place] Haptoglob SerPl-mCncon 11-11 Haptoglobin [Mass/Vol] 15 mg/dL Low 31-238 [facility] Comment on above: Order Comment: Speci men Type: BLOOD SPECIMENOrdering Facility: [facility] Address: [address] [place] [address] Performed By: #### 2 4362-6, 4542-7 ####[facility] [id number] [place] [address] [place] HbA1c (Bld)on 11-11-2024 Average glucose Estimated from glycated hemoglobin (Bld) [Mass/Vol] 154 mg/dL Normal [facility] Comment on above: Order Comment: Speci men Type: BLOOD SPECIMENOrdering Facility: [facility] Address: [address] [place] [address] Result Comment: eAG: (Estimated average glucose) is a calculated value from HgbA1c and is dental detail representative of the average blood glucose level in the last 2-3 month period. Performed By: #### 5 5454-3, 03434-3 ####[facility] LABIA [id number] [place] [address] [place] HbA1c (Bld) [Mass fraction] 7.0 % High 4.3-5.6 [facility] Comment on above: Order Comment: Speci men Type: BLOOD SPECIMENOrdering Facility: [facility] Address: [address] [place] [address] Result Comment: [place] Diabetes Association guidelines indicate that patients with HgbA1c in the range 5.7-6.4% are at increased risk for development of diabetes, and intervention by lifestyle modification may be beneficial. HgbA1c greater or equal to 6.5% is considered diagnostic of diabetes. Performed By: #### 5 5454-3, 01981-4 ####[facility] LABCLIA [id number] [place] [address] [place] Hepatic function 2000 panelo n 11-11-2024 Albumin [Mass/Vol] 2.1 g/dL Low 3.9-4.9 [facility] Comment on above: Order Comment: Speci men Type: BLOOD SPECIMENOrdering Facility: [facility] Address: [address] [place] [address] Performed By: #### 2 276-4, 01436-8, 57228-5, 18890-0, 7-1, 89556-4 ####[facility] LABCLIA [id number] [place] [address] [place] ALP [Catalytic activity/Vol] 310 U/L High 38-113 [facility] Comment on above: Order Comment: Meggani james Type: BLOOD SPECIMENOrdering Facility: [facility] Address: [address] [place] [address] Performed By: #### 2 276-4, 05199-9, 97435-4, 51550-0, 2776-1, 96685-5 ####[facility] LABCLIA [id number] [place] [id number] [place] ALT [Catalytic activity/Vol] 31 U/L Normal 10-54 [facility] Comment on above: Order Comment: Meggani men Type: BLOOD SPECIMENOrdering Facility: [facility] Address: [address] [place] [address] Performed By: #### 2 276-4, 32639-8, 76861-6, 56457-2, 7-1, 23639-5 ####[facility] LABCLIA [id number] [facility] [id number] [address] [place] AST [Catalytic activity/Vol] 44 U/L High 14-40 [facility] Comment on above: Order Comment: Speci men Type: BLOOD SPECIMENOrdering Facility: [facility] Address: [address] [place] [address] Performed By: #### 2 276-4, 63265-1, 95917-2, 20497-7, 2777-1, 49264-5 ####[facility] LABCLIA [id number] [address] [place] [address] [place] Bilirubin [Mass/Vol] 1.6 mg/dL High 0.2-1.3 [facility] Comment on above: Order Comment: Speci men Type: BLOOD SPECIMENOrdering Facility: [facility] Address: [address] [place] [address] Performed By: #### 2 276-4, 61514-7, 66928-1, 63245-4, 2777-1, 16028-5 ####[facility] LABCLIA [id number] [address] [place] [address] [place] Bilirubin.conjugated [Mass/Vol] 1.0 mg/dL High <0.3 [facility] Comment on above: Order Comment: Speci men Type: BLOOD SPECIMENOrdering Facility: [facility] Address: [address] [place] [address] Performed By: #### 2 276-4, 43290-5, 78632-6, 86562-0, 7-1, 81835-3 ####[facility] LABCLIA [id number] [address] [address] [place] Protein [Mass/Vol] 5.3 g/dL Low 6.3-8.0 [facility] Comment on above: Order Comment: Speci men Type: BLOOD SPECIMENOrdering Facility: [facility] Address: [address] [place] [address] Performed By: #### 2 276-4, 69725-1, 12416-9, 47422-2, 2776-1, ####[facility] LABCLIA [id number] [address] [place] [address] [place] IMMATURE PLATELET FRACTIONon 11-11-2024 Platelets reticulated/100 platelets Auto (Bld) 7.7 % High 0.9-7.2 [facility] Comment on above: Order Comment: Speci men Type: BLOOD SPECIMENOrdering Facility: [facility] Address: [address] [place] [address] Performed By: #### I PFR, 80311-5, 87615-8 ####[facility] LABCLIA [id number] [place] [address] [place] Iron and Iron binding capaci ty panelon 11-11-2024 Iron [Mass/Vol] 34 ug/dL Low 41-186 [facility] Comment on above: Order Comment: Speci men Type: BLOOD SPECIMENOrdering Facility: [facility] Address: [address] [place] [address] Performed By: #### 2 276-4, 58921-4, 15635-3, 86312-1, 2776-1, ####[facility] LABCLIA [id number] [address], [facility]95 [place] Iron binding capacity [Mass/Vol] 180 ug/dL Low 232-386 [facility] Comment on above: Order Comment: Speci men Type: BLOOD SPECIMENOrdering Facility: [facility] Address: [address] [place], [place] [address] Performed By: #### 2 276-4, 20568-1, 66773-8, 00431-4, 2776-1, ####[facility] LABCLIA [id number] [address] [address] [place] Iron/TIBC [Molar ratio] 18.9 % Normal 15.0-57.0 [facility] Comment on above: Order Comment: Spechelder ramirez Type: BLOOD SPECIMENOrdering Facility: [facility] Address: [address] [place] [address] Performed By: #### 2 276-4, 31177-4, 69288-3, 95772-6, 2777-1, 39115-7 ####[facility] LABCLIA [id number] [place] [address] [place] LDH SerPl-[facility] 11-11-2024 LDH [Catalytic activity/Vol] 321 U/L High 135-225 [facility] Comment on above: Order Comment: Speci james Type: BLOOD SPECIMENOrdering Facility: [facility] Address: [address] [place] [address] Performed By: #### 2 039-6, 98900-8, 2532-0 ####[facility] LABCLIA [id number] [address] [place] Lipase Fld-[facility] 11-11-2024 Lipase (Body fld) [Catalytic activity/Vol] 29 U/L Normal See Comment [facility] Comment on above: Order Comment: Megganhelder ramirez Type: FLUID SPECIMENOrdering Facility: [facility] Address: [address] [place] [address] Result Comment: Pleu ral fluids: Lipase measurement [...] document C49A. PAULETTE Diaz: Clinical Laboratory Standards [place]: 2007.2. David Guillory. A review of pancreatic cyst fluid analysis in the differential diagnosis of pancreatic cyst lesions. [facility] [employer] OnlineFirst 2013:0:1-16. Performed By: #### 1 747-5, 1795-4, 18837-4, 2881-1 ####[facility]IA [id number] [place] [address] [place] Lupus anticoagulant neutrali zation platelet Coag Ql (PPP)on 11-11-2024 aPTT Coag (Bld) [Time] 56.8 s High 30.2-43.0 [facility] Comment on above: Order Comment: Speci men Type: BLOOD SPECIMENOrdering Facility: [facility] Address: [address] [place] [address] Result Comment: This test was developed, and its performance characteristics determined by the [facility] Department of Pathology and Laboratory Medicine. It has not been cleared or approved by the FDA. The [facility] Department of Pathology and Laboratory Medicine is regulated under CLIA as qualified to perform high-complexity testing. This test is used for clinical purposes. It should not be regarded as investigational or for research. Performed By: #### L [id number], HCOAG, 6303-2, 50313-3, 86357-9 ####[facility] [id number] [address] [place] aPTT Coag (Bld) [Time] 36.5 s Normal 31.5-38.3 [facility] Comment on above: Order Comment: Speci men Type: BLOOD SPECIMENOrdering Facility: [facility] Address: [address] [place] [address] Result Comment: This test was developed, and its performance characteristics determined by the [facility] Department of Pathology and Laboratory Medicine. It has not been cleared or approved by the FDA. The [facility] Department of Pathology and Laboratory Medicine is regulated under CLIA as qualified to perform high-complexity testing. This test is used for clinical purposes. It should not be regarded as investigational or for research. Performed By: #### L [id number], HCOAG, 6303-2, 64978-6, 44217-7 ####[facility] LABIA [id number] [place] [id number] [place] PLATELET NEUT 0.0 Seconds Normal <1.9 [facility] Comment on above: Order Comment: Speci men Type: BLOOD SPECIMENOrdering Facility: [facility] Address: [address] [place] [address] Result Comment: This test was developed, and its performance characteristics determined by the [facility] Department of Pathology and Laboratory Medicine. It has not been cleared or approved by the FDA. The [facility] Department of Pathology and Laboratory Medicine is regulated under CLIA as qualified to perform high-complexity testing. This test is used for clinical purposes. It should not be regarded as investigational or for research. Performed By: #### L [id number], HCOAG, 6303-2, 82365-7, 01482-2 ####[facility] LABCLIA [id number] [place] [address] [place] MANUAL DIFFERENTIAL, BODY FL UIDon 11-11-2024 DIF TTL, BODY FLUID 100 cells counted Normal [facility] Comment on above: Order Comment: Speci men Type: FLUID SPECIMENOrdering Facility: [facility] Address: [address] [place] [address] Performed By: #### C CBF, [id number] ####[facility] LABCLIA [id number] [place] [id number] [place] LYMPH%, BF 37 % High 18-36 [facility] Comment on above: Order Comment: Speci men Type: FLUID SPECIMENOrdering Facility: [facility] Address: [address] [place] [address] Performed By: #### C CBF, [id number] ####[facility] LABCLIA [id number] [place] [id number] [place] MACRO%, BF 21 % Low 64-80 [facility] Comment on above: Order Comment: Speci men Type: FLUID SPECIMENOrdering Facility: [facility] Address: [address] [place] [address] Performed By: #### C CBF, [id number] ####[facility] LABCLIA [id number] [address] [place] [address] [place] MESO %, BF 12 % High 0-2 [facility] Comment on above: Order Comment: Speci men Type: FLUID SPECIMENOrdering Facility: [facility] Address: [address] [place] [address] Performed By: #### C CBF, [id number] ####[facility] LABCLIA [id number] [address] [place] [address] [place] NEUT%, BF 26 % High 0-1 [facility] Comment on above: Order Comment: Speci men Type: FLUID SPECIMENOrdering Facility: [facility] Address: [address] [place] [address] Performed By: #### C CBF, [id number] ####[facility] LABCLIA [id number] [address] [place] [address] [place] REAC LYMPH %, BF 4 % Normal [facility] Comment on above: Order Comment: Speci men Type: FLUID SPECIMENOrdering Facility: [facility] Address: [address] [place] [address] Performed By: #### C CBF, [id number] ####[facility] LABCLIA [id number] [address] [place] [address] [place] MEDICAL EMERon 11-11-2024 MEDICAL KRISTINA Normal [facility] MEDICAL KRISTINA Normal [facility] Magnesium SerPl-mCncon 11-11 Magnesium [Mass/Vol] 2.3 mg/dL Normal 1.7-2.3 [facility] Comment on above: Order Comment: Speci men Type: BLOOD SPECIMENOrdering Facility: [facility] Address: [address] [place] [address] Performed By: #### 2 276-4, 36604-2, 18039-0, 71993-2, 2777-1, 22454-4 ####[facility] LABCLIA [id number] [facility] [place] [address] [place] NURSING PROGon 11-11-2024 NURSING PROG Normal [facility] PLT DEP.AB, UNF. HEPARINon 0 11-11-2024 % REL HIGH DOSE HEP PORCINE 0 % Normal [facility] Comment on above: Order Comment: Speci men Type: BLOOD SPECIMENOrdering Facility: [facility] Address: [address] [place] [address] Performed By: #### S ERORE ####[facility] [id number] [place] [address] % REL LOW DOSE HEP PORCINE 0 % Normal [facility] Comment on above: Order Comment: Speci men Type: BLOOD SPECIMENOrdering Facility: [facility] Address: [address] [place] [address] Performed By: #### S ERORE ####[facility] [id number] [place] [address] SEROTONIN REL INTERP See Note Normal [facility] Comment on above: Order Comment: Speci men Type: BLOOD SPECIMENOrdering Facility: [facility] Address: [address] [place] [address] Result Comment: This patient's specimen demonstrates a [...] Additionalinformation regarding diagnosis of HIT is available [employer].INTERPRETIVE INFORMATION: ABRAHAM, Unfractionated HeparinThis test was developed and its performance characteristicsdetermined by [facility]. It has not been cleared orapproved by the [place] Food and Drug Administration. This test wasperformed in a CLIA certified laboratory and is intended forclinical purposes.Performed By: [facility] [place] [address] [id number] Director: Lizandro Ordonez MD, PhDCLIA Number: [id number] Performed By: #### S ERORE ####[facility]IES[facility]IA [id number] [place] [address] ABRAHAM, UNFRACTIONATED HEPARIN Negative Normal Negative [facility] Comment on above: Order Comment: Speci men Type: BLOOD SPECIMENOrdering Facility: [facility] Address: [address] [place] [address] Performed By: #### S ERORE ####[facility]IA [id number] [place] [address] PROTHROMBIN GENE PCRon 11-11 PROTHROMBIN GENE MUTATION Normal [facility] Comment on above: Order Comment: Speci men Type: BLOOD SPECIMENOrdering Facility: [facility] Address: [address] [place] [address] Result Comment: Prot hrombin Gene MutationLaboratory Accession Number: [id number]:NORMALInterpretation:The DNA sample is negative for the c.*97G>A variant (legacy bapd52374N>A) in the 3' untranslated region of the Factor II (F2) gene.This result is not associated with an increased risk of thromboembolicdisease. Thromboembolic disease is a multifactorial disorder and othercauses are not excluded by this result.Methodology:Isolated Genomic DNA from the patient's blood specimen is evaluatedfor the c*97G>A (g.[id number]) variant of the F2 gene [RefSeqNM_000506.53;GRCh38/hg38] by multiplex polymerase chain reaction (PCR)followed by melting curve analysis.Limitations:This assay is designed to detect the c.*97G>A (19759O>A) variant inthe F2 gene. Uncommon variants or single nucleotide polymorphisms mayaffect binding of probes and may rarely result in false negative,false positive or indeterminate results. This assay does not detectother disease-associated rare variants in F2 or other causes ofthromboembolic disease.Disclaimer:This test was developed and its performance characteristics determinedby [facility]'s Pathology and Laboratory Medicine Department. Ithas not been cleared or approved by the FDA. [facility] is regulated under CLIAas certified to perform high-complexity testing. This test is used forclinical purposes. It should not be regarded as investigational or forresearch.Test performed at [facility], [address] [place] [address]. [place] Number: [id number]:1) Inheritied Thrombophilias in . ACOG Practice Bulletin. No.197. [place] [employer]. ObseteGynecol 2018;132:e18-34.2) Elfego SR, Kinsey FR, Jeremy PH, and Bernice RIVERA. A commongenetic variation in the 3'-untranslated region of the prothrombingene is associated with elevated plasma prothrombin levels and anincrease in venous thrombosis. Blood 88:3698-703, 1995.3) Rica I, Justus V, Nayan C, Emily Carmona. Prwsefbmopn52441U>T: 16 new cases, association with the 86076V>G polymorphism,and literature review. J Thromb Haemost. 2009;9:1585-7.Interpretation performed at remote location (R0A1) by Fifi España MD Performed By: #### P TGEN ####[facility] [id number] [place] [address] [place] PT panel Coag (PPP)on 2024 INR Coag (PPP) [Relative time] 2.3 {INR} High 0.9-1.3 [facility] Comment on above: Order Comment: Speci men Type: BLOOD SPECIMENOrdering Facility: [facility] Address: [address] [place] [address] Result Comment: Sarah min K Antagonist (VKA) Therapeutic Range: INR 2 to 3 (Target INR of 2.5)Note: For patients treated with VKA drugs, such as warfarin, the [place] [employer] 2012 Guideline recommends [...] al. Chest 2012, 141:7S-47SHector HIRSCH, et al. [facility] 2017, 70: 252-289 Performed By: #### P TTA, 46200-2 ####[facility] LABIA [id number] [place] [address] [place] PT Coag (PPP) [Time] 23.1 s High 9.7-13.0 [facility] Comment on above: Order Comment: Speci men Type: BLOOD SPECIMENOrdering Facility: [facility] Address: [address] [place] [address] Performed By: #### P TTA, 49728-8 ####[facility] LABIA [id number] [place] [address] [place] INR Coag (PPP) [Relative time] 2.1 {INR} High 0.9-1.3 [facility] Comment on above: Order Comment: Speci men Type: BLOOD SPECIMENOrdering Facility: [facility] Address: [address] [place] [address] Result Comment: Sarah min K Antagonist (VKA) Therapeutic Range: INR 2 to 3 (Target INR of 2.5)Note: For patients treated with VKA drugs, such as warfarin, the [place] [employer] 2012 Guideline recommends [...] of 2.5 to 3.5 (target INR of 3).Guyatt GH, et al. Chest 2012, 141:7S-47SHector RA, et al. [facility] 2017, 70: 252-289 Performed By: #### 3 4528-0 ####[facility] LABIA [id number] [place] [address] [place] PT Coag (PPP) [Time] 22.0 s High 9.7-13.0 [facility] Comment on above: Order Comment: Speci men Type: BLOOD SPECIMENOrdering Facility: [facility] Address: [address] [place] [address] Performed By: #### 3 4528-0 ####[facility] LABIA [id number] [place] [id number] [place] PTT, ANTICOAGULANT THERAPYon 11-11-2024 aPTT Coag (PPP) [Time] EXTREMELY ABNORMA L RESULT. No clot detected at 320 seconds. Refer to anticoagulation nomogram for further actions. Critically abnormal (none) [facility] Comment on above: Order Comment: Speci men Type: BLOOD SPECIMENOrdering Facility: [facility] Address: [address] [place] [address] Result Comment: Resu lt rechecked.Sample checked for clot. Performed By: #### P [facility], [address]-1 ####[facility] [id number] [address] [place] Phosphate SerPl-mCncon 11-11 Phosphate [Mass/Vol] 2.6 mg/dL Low 2.7-4.8 [facility] Comment on above: Order Comment: Speci men Type: BLOOD SPECIMENOrdering Facility: [facility] Address: [address] [place] [address] Performed By: #### 2 276-4, 75377-4, 53776-2, 90832-5, 2777-1, 59958-3 ####[facility] LABIA [id number] [place] [address] [place] Prot Fld-mCncon 11-11-2024 Protein (Body fld) [Mass/Vol] 0.2 g/dL Normal See Comment [facility] Comment on above: Order Comment: Ezekiel ramirez Type: FLUID SPECIMENOrdering Facility: [facility] Address: [address] [place] [address] Result Comment: Sero us fluids: Effusions are [...] document C49A. PAULETTE Diaz: Clinical Laboratory Standards [place]: 2007. Performed By: #### 1 747-5, 1795-4, 85755-1, 2881-1 ####[facility] LABCLIA [id number] [place] [address] [place] Renal function 2000 panelon 11-11-2024 Albumin [Mass/Vol] 2.4 g/dL Low 3.9-4.9 [facility] Comment on above: Order Comment: Meggani james Type: BLOOD SPECIMENOrdering Facility: [facility] Address: [address] [place] [address] Performed By: #### 2 4362-6, 4542-7 ####[facility] LABCLIA [id number] [place] [address] [place] Anion gap [Moles/Vol] 10 mmol/L Normal 8-15 [facility] Comment on above: Order Comment: Meggani james Type: BLOOD SPECIMENOrdering Facility: [facility] Address: [address] [place] [address] Performed By: #### 2 4362-6, 7 ####[facility] LABCLIA [id number] [facility] [address] [place] [address] [place] Calcium [Mass/Vol] 9.3 mg/dL Normal 8.5-10.2 [facility] Comment on above: Order Comment: Speci men Type: BLOOD SPECIMENOrdering Facility: [facility] Address: [address] [place] [address] Performed By: #### 2 436-6, 7 ####[facility] LABCLIA [id number] [facility] [address] [place] [address] [place] Chloride [Moles/Vol] 100 mmol/L Normal 98-107 [facility] Comment on above: Order Comment: Speci men Type: BLOOD SPECIMENOrdering Facility: [facility] Address: [address] [place] [address] Performed By: #### 2 43609-09, 7 ####[facility] LABCLIA [id number] [facility] [address] [place] [address] [place] CO2 [Moles/Vol] 13 mmol/L Low 22-30 [facility] Comment on above: Order Comment: Speci men Type: BLOOD SPECIMENOrdering Facility: [facility] Address: [address] [place] [address] Performed By: #### 2 43609-09, 7 ####[facility] LABCLIA [id number] [facility] [address] [place] [address] [place] Creatinine [Mass/Vol] 1.26 mg/dL High 0.73-1.22 [facility] Comment on above: Order Comment: Speci men Type: BLOOD SPECIMENOrdering Facility: [facility] Address: [address] [place], [place] [address] Performed By: #### 2 4362-6, 4541-7 ####[facility] LABCLIA [id number] [facility] [place] [address] [place] Creatinine and Glomerular filtration rate.predicted panel (S/P/Bld) 66 mL/min/1.73m??? Normal >=60 [facility] Comment on above: Order Comment: Ezekiel ramirez Type: BLOOD SPECIMENOrdering Facility: [facility] Address: [address] [place] [address] Result Comment: Patric mated Glomerular Filtration Rate [...] GFR. Performed By: #### 2 4362-6, 4542-7 ####[facility] LABCLIA [id number] [place] [id number] [place] Glucose [Mass/Vol] 255 mg/dL High 74-99 [facility] Comment on above: Order Comment: Ezekiel ramirez Type: BLOOD SPECIMENOrdering Facility: [facility] Address: [address] [place] [address] Result Comment: The [place] Diabetes [employer] (ADA) provides guidance for cutoff [...] Standards of Medical Care in Diabetes 2016, [place] [employer]. Diabetes Care. 2016.39(Suppl 1). Performed By: #### 2 4362-6, 4542-7 ####[facility] LABCLIA [id number] [place] [phone] [place] Phosphate [Mass/Vol] 2.5 mg/dL Low 2.7-4.8 [facility] Comment on above: Order Comment: Speci men Type: BLOOD SPECIMENOrdering Facility: [facility] Address: [address] [place] [address] Performed By: #### 2 4362-6, 7 ####[facility] LABCLIA [id number] [place] [address] [place] Potassium [Moles/Vol] 4.4 mmol/L Normal 3.7-5.1 [facility] Comment on above: Order Comment: Speci men Type: BLOOD SPECIMENOrdering Facility: [facility] Address: [address] [place] [address] Performed By: #### 2 4362-6, 7 ####[facility] LABCLIA [id number] [place] [address] [place] Sodium [Moles/Vol] 123 mmol/L Low 136-144 [facility] Comment on above: Order Comment: Speci men Type: BLOOD SPECIMENOrdering Facility: [facility] Address: [address] [place] [address] Performed By: #### 2 4362-6, 4542-02 ####[facility] LABCLIA [id number] [place] [address] [place] Urea nitrogen [Mass/Vol] 21 mg/dL Normal 9-24 [facility] Comment on above: Order Comment: Speci men Type: BLOOD SPECIMENOrdering Facility: [facility] Address: [address] [place] [address] Performed By: #### 2 4362-6, 7 ####[facility] LABCLIA [id number] [place] [address] [place] Retics #on 11-11-2024 Reticulocytes (Bld) [#/Vol] 0.04381 10*3/uL High 0.018-0.100 [facility] Comment on above: Order Comment: Speci men Type: BLOOD SPECIMENOrdering Facility: [facility] Address: [address] [place] [address] Performed By: #### I PFR, 60837-2, 15483-3 ####[facility] LABCLIA [id number] [address] [place] Reticulocytes (Bld) [#/Vol]o n 11-11-2024 Reticulocytes/100 RBC (Bld) 4.1 % High 0.4-2.0 [facility] Comment on above: Order Comment: Speci men Type: BLOOD SPECIMENOrdering Facility: [facility] Address: [address] [place] [address] Performed By: #### I PFR, 04488-9, 13288-6 ####[facility] LABIA [id number] [address] [place] SEPSIS LACTATEon 11-11-2024 Lactate [Moles/Vol] 3.4 mmol/L High <=2.0 [facility] Comment on above: Order Comment: Speci men Type: BLOOD SPECIMENOrdering Facility: [facility] Address: [address] [place] [address] Performed By: #### S LACT ####[facility] LABIA [id number] [address] STATES [facility] Lactate [Moles/Vol] 3.6 mmol/L High <=2.0 [facility] [facility] Comment on above: Order Comment: Speci men Type: BLOOD SPECIMENOrdering Facility: [facility] Address: [address] [place] [address] Performed By: #### S LACT ####[facility] LABIA [id number] [place] [address] [place] Screen dRVVTon 11-11-2024 dRVVT Coag (PPP) [Time] 42.6 s Normal 32.0-45.7 C [facility] Comment on above: Order Comment: Speci men Type: BLOOD SPECIMENOrdering Facility: [facility] Address: [address] [place] [address] Performed By: #### L [id number], HCOAG, 6303-2, 66515-7, 03503-6 ####[facility] LABCLIA [id number] [place] [address] [place] US ABD LIVER VASCULARon 11-02 US ABD LIVER VASCULAR Normal [facility] US DOPPLER COMPLETEon 2024 US DOPPLER COMPLETE Normal [facility] XR ABDOMEN 1V SUPINEon 11-11 XR ABDOMEN 1V SUPINE Normal [facility] XR CHEST 1V FRONTAL PORTon 0 11-11-2024 XR CHEST 1V FRONTAL PORT Normal [facility] XR CHEST 1V FRONTAL PORT Normal [facility] aPTT PPPon 11-11-2024 aPTT Coag (PPP) [Time] 41.7 s High 23.0-32.4 [facility] Comment on above: Order Comment: Speci men Type: BLOOD SPECIMENOrdering Facility: [facility] Address: [address] [place] [address] Performed By: #### 3 255-7, 93884-2 ####[facility] LABCLIA [id number] [place] [address] [place] dRVVT Coag (PPP) [Time]on dRVVT factor substitution immediately after 1:2 addition of normal plasma Coag (PPP) [Time] 35.4 seconds Normal 32.0-45.7 [facility] Comment on above: Order Comment: Speci men Type: BLOOD SPECIMENOrdering Facility: [facility] Address: [address] [place] [address] Performed By: #### L [id number], HCOAG, 6303-2, 39924-4, 37769-8 ####[facility] LABCLIA [id number] [place] [address] [place] dRVVT/dRVVT.excess phospholipid Coag (PPP) [Ratio] 0.91 Normal <1.32 [facility] Comment on above: Order Comment: Speci men Type: BLOOD SPECIMENOrdering Facility: [facility] Address: [address] [place] [address] Performed By: #### L [id number], HCOAG, 6303-2, 25051-3, 75999-0 ####[facility] LABCLIA [id number] [place] [address] [place] ALP [Catalytic activity/Vol] Ordered By: Kathie Powers on 11-10-2024 Serum or plasma alkaline phosphatase measurement 310 U/L High 40-129 [facility] ALT [Catalytic activity/Vol] Ordered By: Kathie Powers on 11-10-2024 Serum or plasma alanine aminotransferase (ALT) measurement 36 U/L <47 [facility] Absolute lymphocyte countOrd ered By: Kathie Powers on 11-10-2024 Lymphocytes Auto (Unsp spec) [#/Vol] 1.30 10*3/uL 0.83-4.51 [facility] Absolute neutrophil countOrd ered By: Kathie Powers on 11-10-2024 Absolute neutrophil count 16.2 X10^3/uL High 2.0-7.7 [facility] Albumin [Mass/Vol]Ordered By : Kathie Powers on 11-10-2024 Serum or plasma albumin measurement (mass/volume) 2.3 g/dL Low 3.5-5.0 [facility] Albumin/Globulin [Mass ratio ]Ordered By: Kathie Powers on 11-10-2024 Serum or plasma albumin/globulin mass ratio 0.7 RATIO Low 0.9-2.4 [facility] Anion gap [Moles/Vol]Ordered By: Kathie Powers on 11-10-2024 Anion gap in Serum or Plasma 11 5-15 [facility] Anion gap in Serum or Plasma Ordered By: Kathie Powers on 11-10-2024 Anion gap [Moles/Vol] 11 mmol/L 5-15 [facility] Automated lymphocyte count a s percentage of total leukocytesOrdered By: Kathie Powers on 11-10-2024 Lymphocytes/100 WBC Auto (Unsp spec) 6.6 % Low 19-41 [facility] BUN/creatinine ratioOrdered By: Kathie Powers on 11-10-2024 Urea nitrogen/Creatinine [Mass ratio] 16.6 mg/mg 10-20 [facility] BUN/creatinine ratio 16.6 RATIO 10-20 [facility] Bacteria LM.HPF (Urine sed) [#/Area]Ordered By: Kathie Powers on 11-10-2024 Urine sediment bacteria count by microscopy (number/high power field) 2+ /hpf None Seen [facility] Basophil percentageOrdered B y: Kathie Powers on 11-10-2024 Basophils/100 WBC (Bld) 0.5 % 0-1 [facility] Basophil percentage 0.5 % 0-1 [facility] Bilirubin Test strip Ql (U)O rdered By: Kathie Powers on 11-10-2024 Bilirubin Ql (U) Negative Negative [facility] Urine total bilirubin detection by test strip Negative Negative [facility] Bilirubin, totalOrdered By: Kathie Powers on 11-10-2024 Bilirubin [Mass/Vol] 2.09 mg/dL High 0.00-1.30 [facility] Bilirubin, total 2.09 mg/dL High 0.00-1.30 [facility] Calcium [Mass/Vol]Ordered By : Kathie Powers on 11-10-2024 Serum or plasma calcium measurement (mass/volume) 9.2 mg/dL 7.6-11.0 [facility] Carbon dioxide, total [Moles /volume] in Central venous bloodOrdered By: Kathie Powers on 11-10-2024 CO2 [Moles/Vol] 13.3 mmol/L Low 21.0-32.0 [facility] Carbon dioxide, total [Moles/volume] in Central venous blood 13.3 mmol/L Low 21.0-32.0 [facility] Chloride assayOrdered By: Paulette Powers on 11-10-2024 Chloride [Moles/Vol] 99 mmol/L 98-108 [facility] Chloride assay 99 mmol/L 98-108 [facility] Clarity (U)Ordered By: Kathie Powers on 11-10-2024 Urine clarity Turbid Clear [facility] Color (U)Ordered By: Kathie bhatt on 11-10-2024 Urine color determination Brown Yellow [facility] Creatinine [Mass/Vol]Ordered By: Kathie Powers on 11-10-2024 Serum creatinine measurement (mass/volume) 1.13 mg/dL 0.70-1.20 [facility] Eosinophil percentageOrdered By: Kathie Powers on 11-10-2024 Eosinophils/100 WBC (Bld) 1.9 % 0-5 [facility] Eosinophil percentage 1.9 % 0-5 [facility] Erythrocyte distribution wid th (RBC) [Ratio]Ordered By: Kathie Powers on 11-10-2024 Erythrocyte distribution width ratio 18.1 % High 11.6-14.6 [facility] Erythrocyte distribution width standard deviation 62.1 fl High 35.1-43.9 [facility] Erythrocyte distribution wid th ratioOrdered By: Kathie Powers on 11-10-2024 Erythrocyte distribution width (RBC) [Ratio] 18.1 % High 11.6-14.6 [facility] Erythrocyte distribution wid th standard deviationOrdered By: Kathie Powers on 11-10-2024 Erythrocyte distribution width (RBC) [Ratio] 62.1 fl High 35.1-43.9 [facility] Estimation of creatinine carolina aranceOrdered By: Kathie Powers on 11-10-2024 Estimation of creatinine clearance 88.23 ml/min 50-250 [facility] GFR/1.73 sq M.predicted niki g non-blacks MDRD (S/P/Bld) [Vol rate/Area]Ordered By: Kathie Powers on 11-10-2024 Glomerular filtration rate (GFR) estimation/1.73 sq m using serum, plasma, or whole b 75 >60 [facility] Glomerular filtration rate ( GFR) estimation/1.73 sq m using serum, plasma, or whole bOrdered By: Kathie Powers on 11-10-2024 GFR/1.73 sq M.predicted among non-blacks MDRD (S/P/Bld) [Vol rate/Area] 75 mL/min/{1.73_m2} >60 [facility] Glucose Ql (U)Ordered By: Paulette Powers on 11-10-2024 Urine glucose detection Normal mg/dl Normal [facility] Glucose [Mass/Vol]Ordered By : Kathie Powers on 11-10-2024 Serum glucose measurement (mass/volume) 298 mg/dL High 70-99 [facility] Glucose measurement at bedsi deOrdered By: Kathie Powers on 11-10-2024 Glucose [Mass/Vol] 265 mg/dL High 74-106 [facility] Glucose measurement at bedside 265 mg/dL High 74-106 [facility] Hematocrit Auto (Bld) [Volum e fraction]Ordered By: Kathie Powers on 11-10-2024 Hematocrit (Bld) [Volume fraction] 32.9 % Low 40-54 [facility] Automated blood hematocrit (percentage) 32.9 % Low 40-54 [facility] Hemoglobin measurementOrdere d By: Kathie Powers on 11-10-2024 Hemoglobin (Bld) [Mass/Vol] 11.3 g/dL Low 13.0-16.5 [facility] Hemoglobin measurement 11.3 g/dL Low 13.0-16.5 [facility] Immature granulocytes/100 WB C Auto (Bld)Ordered By: Kathie Powers on 11-10-2024 Immature granulocytes/100 WBC (Bld) 1.100 % High 0.0-0.9 [facility] Automated immature granulocyte percentage 1.100 % High 0.0-0.9 [facility] International normalized rat io (INR) calculationOrdered By: Kathie Powers on 11-10-2024 International normalized ratio (INR) calculation 3.1 [facility] Ketones Test strip Ql (U)Ord ered By: Kathie Powers on 11-10-2024 Ketones Ql (U) 5 mg/dl High Negative [facility] Urine ketones detection by test strip 5 mg/dl High Negative [facility] Leukocyte esterase Test stri p Ql (U)Ordered By: Kathie Powers on 11-10-2024 Urine leukocyte esterase detection by dipstick 500 /ul High Negative [facility] Lymphocytes Auto (Unsp spec) [#/Vol]Ordered By: Kathie Powers on 11-10-2024 Absolute lymphocyte count 1.30 X10^3/uL 0.83-4.51 [facility] Lymphocytes/100 WBC Auto (Un sp spec)Ordered By: Kathie Powers on 11-10-2024 Automated lymphocyte count as percentage of total leukocytes 6.6 % Low 19-41 [facility] MCV (RBC) [Entitic vol]Order ed By: Kathie Powers on 11-10-2024 MCV (mean corpuscular volume) determination 92.7 fL 80-94 [facility] MCV (mean corpuscular volume ) determinationOrdered By: Kathie Powers on 11-10-2024 MCV (RBC) [Entitic vol] 92.7 fL 80-94 [facility] Mean corpuscular hemoglobin (MCH) determinationOrdered By: Kathie Powers on 11-10-2024 MCH (RBC) [Entitic mass] 31.8 pg 27.0-32.0 [facility] Mean corpuscular hemoglobin (MCH) determination 31.8 pg 27.0-32.0 [facility] Mean corpuscular hemoglobin concentration (MCHC) determinationOrdered By: Kathie Powers on 11-10-2024 Mean corpuscular hemoglobin concentration (MCHC) determination 34.3 g/dL 32-36 [facility] Mean platelet volume determi nationOrdered By: Kathie Powers on 11-10-2024 Mean platelet volume determination 12.2 fl High 6.2-12.0 [facility] Microscopic analysis of urin e for red blood cells (RBC)Ordered By: Kathie Powers on 11-10-2024 Microscopic analysis of urine for red blood cells (RBC) > 100 SEEN /hpf 0-5 [facility] Monocyte percentageOrdered B y: Kathie Powers on 11-10-2024 Monocytes/100 WBC (Bld) 6.9 % 0-10 [facility] Monocyte percentage 6.9 % 0-10 [facility] Mucus LM Ql (Urine sed)Order ed By: Kathie Powers on 11-10-2024 Mucus Ql (Urine sed) 0 SEEN /hpf [facility] Neutrophil percentageOrdered By: Kathie Powers on 11-10-2024 Neutrophils/100 WBC (Bld) 83.0 % High 47-70 [facility] Neutrophil percentage 83.0 % High 47-70 [facility] Nitrite Test strip Ql (U)Ord ered By: Kathie Powers on 11-10-2024 Nitrite Ql (U) Positive High Negative [facility] Urine nitrite test by dipstick Positive High Negative [facility] No Panel InformationOrdered By: Kathie Powers on 11-10-2024 58 U/L High <38 [facility] Nucleated red blood cell per centageOrdered By: Kathie Powers on 11-10-2024 Nucleated red blood cell percentage 0 % 0-5 [facility] Platelet countOrdered By: Paulette Powers on 11-10-2024 Platelets (Bld) [#/Vol] 58 10*3/uL Low 150-450 [facility] Platelet count 58 K/mm3 Low 150-450 [facility] Potassium (Unsp spec) [Mass/ Vol]Ordered By: Kathie Powers on 11-10-2024 Potassium measurement (mass/volume) 3.6 mmol/L 3.3-5.1 [facility] Potassium measurement (mass/ volume)Ordered By: Kathie Powers on 11-10-2024 Potassium (Unsp spec) [Mass/Vol] 3.6 mmol/L 3.3-5.1 [facility] Protein Test strip Ql (U)Ord ered By: Kathie Powers on 11-10-2024 Protein Ql (U) 500 mg/dl High Negative [facility] Urine protein assay by test strip, semi-quantitative 500 mg/dl High Negative [facility] Prothrombin timeOrdered By: Kathie Powers on 11-10-2024 PT Coag (PPP) [Time] 32.3 s High 11.7-14.9 [facility] Prothrombin time 32.3 SECONDS High 11.7-14.9 [facility] RBC Auto (Bld) [#/Vol]Ordere d By: Kathie Powers on 11-10-2024 RBC (Bld) [#/Vol] 3.55 10*6/uL Low 4.6-6.2 [facility] Automated blood erythrocyte count 3.55 M/mm3 Low 4.6-6.2 [facility] Serum creatinine measurement (mass/volume)Ordered By: Kathie Powers on 11-10-2024 Creatinine [Mass/Vol] 1.13 mg/dL 0.70-1.20 [facility] Serum globulin measurementOr dered By: Kathie Powers on 11-10-2024 Globulin (S) [Mass/Vol] 3.4 g/dL 2.2-4.2 [facility] Serum globulin measurement 3.4 g/dL 2.2-4.2 [facility] Serum glucose measurement (m ass/volume)Ordered By: Kathie Powers on 11-10-2024 Glucose [Mass/Vol] 298 mg/dL High 70-99 [facility] Serum or plasma alanine thomas otransferase (ALT) measurementOrdered By: Kathie Powers on 11-10-2024 ALT [Catalytic activity/Vol] 36 U/L <47 [facility] Serum or plasma albumin roosevelt urement (mass/volume)Ordered By: Kathie Powers on 11-10-2024 Albumin [Mass/Vol] 2.3 g/dL Low 3.5-5.0 [facility] Serum or plasma albumin/glob ulin mass ratioOrdered By: Kathie Powers on 11-10-2024 Albumin/Globulin [Mass ratio] 0.7 {ratio} Low 0.9-2.4 [facility] Serum or plasma alkaline kendrick sphatase measurementOrdered By: Kathie Powers on 11-10-2024 ALP [Catalytic activity/Vol] 310 U/L High 40-129 [facility] Serum or plasma calcium roosevelt urement (mass/volume)Ordered By: Kathie Powers on 11-10-2024 Calcium [Mass/Vol] 9.2 mg/dL 7.6-11.0 [facility] Serum or plasma urea nitroge n measurement (mass/volume)Ordered By: Kathie Powers on 11-10-2024 Urea nitrogen [Mass/Vol] 19 mg/dL 4-19 [facility] Sodium levelOrdered By: Javed Powers on 11-10-2024 Sodium [Moles/Vol] 123 mmol/L Low 133-145 [facility] Sodium level 123 mmol/L Low 133-145 [facility] Specific gravity (U) [Rel de nsity]Ordered By: Kathie Powers on 11-10-2024 Urine specific gravity measurement 1.015 1.002-1.030 [facility] Squamous epithelial cells de tection in urine sediment by light microscopyOrdered By: Kathie Powers on 11-10-2024 Epithelial cells.squamous LM Ql (Urine sed) 0 SEEN /hpf 0-5 [facility] Squamous epithelial cells detection in urine sediment by light microscopy 0 SEEN /hpf [facility] Total proteinOrdered By: Tyree Powers on 11-10-2024 Protein [Mass/Vol] 5.7 g/dL Low 5.9-8.4 [facility] Total protein 5.7 g/dL Low 5.9-8.4 [facility] Urea nitrogen [Mass/Vol]Orde red By: Kathie Powers on 11-10-2024 Serum or plasma urea nitrogen measurement (mass/volume) 19 mg/dL 4-19 [facility] Urine blood detectionOrdered By: Kathie Powers on 11-10-2024 Urine blood detection 250 /ul High Negative [facility] Urine clarityOrdered By: Tyree Powers on 11-10-2024 Clarity (U) Turbid Clear [facility] Urine color determinationOrd ered By: Kathie Powers on 11-10-2024 Color (U) Brown Yellow [facility] Urine glucose detectionOrder ed By: Kathie Powers on 11-10-2024 Glucose Ql (U) Normal mg/dl Normal [facility] Urine leukocyte esterase det ection by dipstickOrdered By: Kathie Powers on 11-10-2024 Leukocyte esterase Test strip Ql (U) 500 /ul High Negative [facility] Urine pHOrdered By: Kathie garcias on 11-10-2024 pH (U) 6.5 [pH] 5.0 - 8.0 [facility] Urine sediment bacteria coun t by microscopy (number/high power field)Ordered By: Kathie Powers on 11-10-2024 Bacteria LM.HPF (Urine sed) [#/Area] 2 /[HPF] None Seen [facility] Urine specific gravity measu rementOrdered By: Kathie Powers on 11-10-2024 Specific gravity (U) [Rel density] 1.015 1.002-1.030 [facility] Urine urobilinogen measureme ntOrdered By: Kathie Powers on 11-10-2024 Urobilinogen Ql (U) 1 mg/dl High Normal [facility] Urobilinogen Ql (U)Ordered B y: Kathie Powers on 11-10-2024 Urine urobilinogen measurement 1 mg/dl High Normal [facility] White blood cell (WBC) count Ordered By: Kathie Powers on 11-10-2024 WBC (Bld) [#/Vol] 19.6 10*3/uL High 4.4-11.0 [facility] White blood cell (WBC) count 19.6 K/mm3 High 4.4-11.0 [facility] White blood cell countOrdere d By: Kathie Powers on 11-10-2024 White blood cell count 5-10 SEEN /hpf 0-5 [facility] White blood cell count 5-10 SEEN /hpf 0-5 [facility] pH (U)Ordered By: Kathie Jaffe ce on 11-10-2024 Urine pH 6.5 5.0 - 8.0 [facility] Blood manual differential co mment interpretation (narrative result)Ordered By: Kathie Powers on 11-09-2024 Manual differential comment Marco Antonio (Bld) [Interp] SCANNED [facility] Lactic acid measurementOrder ed By: Kathie Powers on 11-09-2024 Lactic acid measurement 2.4 mmol/L High 0.0-2.0 [facility] Manual differential comment Marco Antonio (Bld) [Interp]Ordered By: Kathie Powers on 11-09-2024 Blood manual differential comment interpretation (narrative result) SCANNED [facility] Pathologist review Marco Antonio (Unsp spec) [Interp]Ordered By: Kathie Powers on 11-09-2024 Review by pathologist N/A [facility] Platelet estimateOrdered By: Kathie Powers on 11-09-2024 Platelets LM Ql (Bld) [facility] Platelets LM Ql (Bld)Ordered By: Kathie Powers on 11-09-2024 Platelet estimate MKD DEC [facility] Review by pathologistOrdered By: Kathie Pwoers on 11-09-2024 Pathologist review Marco Antonio (Unsp spec) [Interp] N/A [facility] Venous blood ammonia measure mentOrdered By: Kathie Powers on 11-09-2024 Ammonia (P) [Moles/Vol] 104.0 umol/L High 16-60 [facility] Venous blood ammonia measurement 104.0 umol/L High 16-60 [facility] Lipase measurementOrdered By : Kathie Powers on 11-08-2024 Lipase measurement 94 U/L High 13-75 [facility] Magnesium (Unsp spec) [Mass/ Vol]Ordered By: Kathie Powers on 11-08-2024 Magnesium measurement (mass/volume) 2.4 mg/dL High 1.5-2.2 [facility] Magnesium measurement (mass/ volume)Ordered By: Kathie Powers on 11-08-2024 Magnesium (Unsp spec) [Mass/Vol] 2.4 mg/dL High 1.5-2.2 [facility] Serum phosphorus measurement Ordered By: Kathie Powers on 11-08-2024 Serum phosphorus measurement 1.6 mg/dL Low 2.7-4.5 [facility] Blood polychromasia detectio n by light microscopyOrdered By: Hill Acuña on 11-07-2024 Polychromasia LM Ql (Bld) 1+ [facility] Blood polychromasia detection by light microscopy 1+ [facility] Ovalocyte detectionOrdered B y: Hill Acuña on 11-07-2024 Ovalocytes LM Ql (Bld) 1+ [facility] Band form neutrophils/100 WB C (Bld)Ordered By: Hill Acuña on 11-03-2024 Blood band neutrophil count as percentage of total leukocytes 6 % High 0-5 [facility] Blood band neutrophil count as percentage of total leukocytesOrdered By: Hill Acuña on 11-03-2024 Band form neutrophils/100 WBC (Bld) 6 % High 0-5 [facility] Blood eosinophils/100 leukoc ytesOrdered By: Hill Acuña on 11-03-2024 Eosinophils/100 WBC (Bld) 1 % 0-5 [facility] Blood lymphocytes/100 leukoc ytesOrdered By: Hill Acuña on 11-03-2024 Lymphocytes/100 WBC (Bld) 2 % Low 19-41 [facility] Blood lymphocytes/100 leukocytes 2 % 0-10 [facility] Blood metamyelocytes/100 bri kocytesOrdered By: Hill Acuña on 11-03-2024 Metamyelocytes/100 WBC (Bld) 1 % 0-1 [facility] Blood metamyelocytes/100 leukocytes 1 % 0-5 [facility] Blood monocytes/100 leukocyt esOrdered By: Hill Acuña on 11-03-2024 Monocytes/100 WBC (Bld) 2 % 0-10 [facility] Blood segmented neutrophils/ 100 leukocytesOrdered By: Hill Acuña on 11-03-2024 Segmented neutrophils/100 WBC (Bld) 85 % High 47-70 [facility] Cells counted Molgen (Bld/Ti ss) [#]Ordered By: Hill Acuña on 11-03-2024 Total cell count 100 MANUAL DIFF [facility] Segmented neutrophils/100 WB C (Bld)Ordered By: Hill Acuña on 11-03-2024 Blood segmented neutrophils/100 leukocytes 85 % High 47-70 [facility] Total cell countOrdered By: Hill Acuña on 11-03-2024 Cells counted Molgen (Bld/Tiss) [#] 100 MANUAL DIFF [facility] Erythrocyte morphology asses smentOrdered By: Hill Acuña on 11-02-2024 RBC morphology finding Nom (Bld) NORM C+C NORMAL NORM C&C [facility] RBC morphology finding Nom ( Bld)Ordered By: Hill Acuña on 11-02-2024 Erythrocyte morphology assessment NORM C+C NORMAL NORM C&C [facility] Trough vancomycin levelOrder ed By: Buster Fuchs on 11-01-2024 Vancomycin trough [Mass/Vol] 17.7 ug/mL High 5.0-15.0 [facility] Vancomycin trough [Mass/Vol] Ordered By: Buster Fuchs on 11-01-2024 Trough vancomycin level 17.7 ug/mL High 5.0-15.0 [facility] Activated partial thrombopla stin time (aPTT) in platelet poor plasma by coagulation aOrdered By: Buster Fuchs on 10-31-2024 aPTT Coag (PPP) [Time] 42.7 s High 24.1-36.2 [facility] aPTT Coag (PPP) [Time]Ordere d By: Buster Fuchs on 10-31-2024 Activated partial thromboplastin time (aPTT) in platelet poor plasma by coagulation a 42.7 Seconds High 24.1-36.2 [facility] C. difficile Ql (Stl)Ordered By: Hill Wright on 10-30-2024 Stool Clostridium difficile detection Toxigenic C. difficile Abnormal [facility] Clostridium difficile detect ion by polymerase chain reactionOrdered By: Hill Wright on 10-30-2024 C. difficile DNA ANANTH+probe Ql (Unsp spec) [facility] Stool Clostridium difficile detectionOrdered By: Hill Wright on 10-30-2024 C. difficile Ql (Stl) Toxigenic C. difficile Abnormal [facility] Stool lactoferrin detection by immunoassayOrdered By: Hill Wright on 10-30-2024 Lactoferrin IA Ql (Stl) [facility] Arterial patency Wrist arter y --pre arterial punctureOrdered By: Buster Fuchs on 10-29-2024 Assessment of wrist artery patency prior to arterial puncture Positive [facility] Assessment of wrist artery p atency prior to arterial punctureOrdered By: Buster Fuchs on 10-29-2024 Arterial patency Wrist artery --pre arterial puncture Positive [facility] Base excess Calc (BldV) [Mol es/Vol]Ordered By: Buster Fuchs on 10-29-2024 Blood base excess determination -10 mmol/L [facility] Blood base excess determinat ionOrdered By: Buster Fuchs on 10-29-2024 Base excess Calc (BldV) [Moles/Vol] -10 mmol/L [facility] -2-2 [facility] Blood bicarbonate measuremen tOrdered By: Buster Fuchs on 10-29-2024 HCO3 (Bld) [Moles/Vol] 15.2 mmol/L Low 22-26 [facility] Blood bicarbonate measurement 15.2 mmol/L Low 22-26 [facility] Blood cultureOrdered By: Hugo Wright on 10-29-2024 Bacteria identified Cx Nom (Bld) No growth in 5 days. [facility] Blood culture No growth in 5 days. [facility] Calculated very low density lipoprotein (VLDL) cholesterol measurementOrdered By: Hill Wright on 10-29-2024 Calculated very low density lipoprotein (VLDL) cholesterol measurement 17 mg/dL 5-40 [facility] Calculated very low density lipoprotein (VLDL) cholesterol measurement 17 mg/dL 5-40 [facility] Cholesterol [Mass/Vol]Ordere d By: Hill Wright on 10-29-2024 Serum or plasma cholesterol measurement (mass/volume) 132 mg/dL <201 [facility] Cholesterol in HDL [Mass/Vol ]Ordered By: Hill Wright on 10-29-2024 Serum or plasma cholesterol in HDL measurement (mass/volume) 33 mg/dL Low >40 [facility] Determination of fraction of inspired oxygenOrdered By: Buster Fuchs on 10-29-2024 Determination of fraction of inspired oxygen 21.0 [facility] Electrocardiogram reportOrde red By: Jeovanny Ramos on 10-29-2024 EKG study [facility] Other Phone: LDL calc ser/plasOrdered By: Hill Wright on 10-29-2024 Cholesterol in LDL [Mass/Vol] 83 mg/dL [facility] Measurement, pHOrdered By: Ney Fuchs on 10-29-2024 pH (Unsp spec) 7.39 [pH] 7.35-7.45 [facility] No Panel InformationOrdered By: Buster Fuchs on 10-29-2024 ART [facility] L Radial [facility] Not entered [facility] Room Air [facility] No Panel InformationOrdered By: Hill Wright on 10-29-2024 10.20 ug/dL 6.02-18.40 [facility] Osmolality, serumOrdered By: Hill Wright on 10-29-2024 Osmolality, serum 292 mOsm/KG 275-295 [facility] Oxygen saturation measuremen tOrdered By: Buster Fuchs on 10-29-2024 Oxygen saturation measurement 93 % Low 95-99 [facility] Partial pressure of carbon d ioxide measurementOrdered By: Buster Fuchs on 10-29-2024 Partial pressure of carbon dioxide measurement 25.1 mmHg Low 35-45 [facility] Partial pressure of oxygen m easurementOrdered By: Buster Fuchs on 10-29-2024 Partial pressure of oxygen measurement 67 mmHG Low 75-100 [facility] Screening total cholesterol/ high density lipoprotein (HDL) cholesterol ratioOrdered By: Hill Wright on 10-29-2024 Screening total cholesterol/high density lipoprotein (HDL) cholesterol ratio 4.04 [facility] Serum or plasma cholesterol in HDL measurement (mass/volume)Ordered By: Hill Wright on 10-29-2024 Cholesterol in HDL [Mass/Vol] 33 mg/dL Low >40 [facility] Serum or plasma cholesterol measurement (mass/volume)Ordered By: Hill Wright on 10-29-2024 Cholesterol [Mass/Vol] 132 mg/dL <201 [facility] Total carbon dioxide measure mentOrdered By: Buster Fuchs on 10-29-2024 CO2 [Moles/Vol] 16 mmol/L [facility] Total carbon dioxide measurement 16 mmol/L [facility] Triglycerides measurementOrd ered By: Hill Wright on 10-29-2024 Triglycerides measurement 83 mg/dL [facility] Urine cultureOrdered By: Viraj Dunn on 10-29-2024 Bacteria identified Cx Nom (U) Culture exhibits no growth. [facility] Urine culture Culture exhibits no growth. [facility] pH (Unsp spec)Ordered By: Marianna Fuchs on 10-29-2024 Measurement, pH 7.39 7.35-7.45 [facility] Absolute neutrophil countOrd ered By: Alber Dunn on 10-28-2024 Neutrophils (Bld) [#/Vol] 19.0 10*3/uL High 2.0-7.7 [facility] Amorphous sediment LM Ql (Ur ine sed)Ordered By: Alber Dunn on 10-28-2024 Amorphous sediment detection in urine sediment by light microscopy 1+ URATE [facility] Amorphous sediment detection in urine sediment by light microscopyOrdered By: Alber Dunn on 10-28-2024 Amorphous sediment LM Ql (Urine sed) 1+ URATE [facility] Anion gap in Serum or Plasma Ordered By: Alber Dunn on 10-28-2024 Anion gap [Moles/Vol] 17 mmol/L High 5-15 [facility] BUN/creatinine ratioOrdered By: Alber Dunn on 10-28-2024 Urea nitrogen/Creatinine [Mass ratio] 18.8 mg/mg 10-20 [facility] Basophil percentageOrdered B y: Alber Dunn on 10-28-2024 Basophils/100 WBC (Bld) 0.2 % 0-1 [facility] Bilirubin Test strip Ql (U)O rdered By: Alber Dunn on 10-28-2024 Bilirubin Ql (U) 1 mg/dL High Negative [facility] Comment on above: COLOR OF URINE MAY A FFECT DIPSTICK RESULTS. Bilirubin, totalOrdered By: Alber Dunn on 10-28-2024 Bilirubin [Mass/Vol] 1.86 mg/dL High 0.00-1.30 [facility] Carbon dioxide, total [Moles /volume] in Central venous bloodOrdered By: Alber Dunn on 10-28-2024 CO2 [Moles/Vol] 12.4 mmol/L Low 21.0-32.0 [facility] Chloride assayOrdered By: Hernesto Dunn on 10-28-2024 Chloride [Moles/Vol] 98 mmol/L 98-108 [facility] Eosinophil percentageOrdered By: Alber Dunn on 10-28-2024 Eosinophils/100 WBC (Bld) 1.4 % 0-5 [facility] Epithelial cells.squamous LM Ql (Urine sed)Ordered By: Alber Dunn on 10-28-2024 Epithelial cells.squamous LM.HPF (Urine sed) [#/Area] 5 /[HPF] 0-5 [facility] Erythrocyte distribution wid th ratioOrdered By: Alber Dunn on 10-28-2024 Erythrocyte distribution width (RBC) [Ratio] 19.1 % High 11.6-14.6 [facility] Erythrocyte distribution wid th standard deviationOrdered By: Alber Dunn on 10-28-2024 Erythrocyte distribution width (RBC) [Entitic vol] 62.7 fL High 35.1-43.9 [facility] GFR/1.73 sq M.predicted niki g non-blacks MDRD (S/P/Bld) [Vol rate/Area]Ordered By: Alber Dunn on 10-28-2024 Estimated GFR (MDRD) Non-Af Amer 62 >60 [facility] Comment on above: mL/min/1.73m2 CKD-EP I Creatinine Equation (2020) Glucose Ql (U)Ordered By: Hernesto Dunn on 10-28-2024 Glucose (U) [Mass/Vol] 50 mg/dL High Normal [facility] HbA1c (Bld) [Mass fraction]O rdered By: Hill Wright on 10-28-2024 Hemoglobin A1c percentage 6.7 % >5.7 [facility] Hematocrit Auto (Bld) [Volum e fraction]Ordered By: Alber Dunn on 10-28-2024 Hematocrit (Bld) [Volume fraction] 37.3 % Low 40-54 [facility] Hemoglobin A1c percentageOrd ered By: Hill Wright on 10-28-2024 HbA1c (Bld) [Mass fraction] 6.7 % >5.7 [facility] Hemoglobin measurementOrdere d By: Alber Dunn on 10-28-2024 Hemoglobin (Bld) [Mass/Vol] 12.7 g/dL Low 13.0-16.5 [facility] Immature granulocytes/100 WB C Auto (Bld)Ordered By: Alber Dunn on 10-28-2024 Immature granulocytes/100 WBC (Bld) 1.400 % High 0.0-0.9 [facility] Comment on above: IG% - Immature Granu locytes (promyelocytes, myelocytes and metamyelocytes) > 1% indicates that a LEFT SHIFT is Present. Ketones Test strip Ql (U)Ord ered By: Alber Dunn on 10-28-2024 Ketones Ql (U) 5 mg/dl High Negative [facility] Laboratory - Chemistry and C hemistry - challengeOrdered By: Alber Dunn on 10-28-2024 AST [Catalytic activity/Vol] 48 U/L High <38 [facility] Comment on above: Hemolysis present, R esults could be affected. Laboratory - Hematology and Cell countsOrdered By: Alber Dunn on 10-28-2024 Anisocytosis Ql (Bld) RARE [facility] Lactic acid measurementOrder ed By: Alber Dunn on 10-28-2024 Lactate [Moles/Vol] 4.0 mmol/L High 0.0-2.0 [facility] Comment on above: Critical Result(s) C alled [...] 10-28-2024 Lipase [Catalytic activity/Vol] 45 U/L 13-75 [facility] Comment on above: Please note:LIPASE r evised reference range effective 22. New Lipase methodology. Expected to produce lower values than the previous assay method. NEW Reference Range: 13 - 75 U/L Lymphocytes Auto (Unsp spec) [#/Vol]Ordered By: Alber Dunn on 10-28-2024 Lymphocytes (Bld) [#/Vol] 1.28 10*3/uL 0.83-4.51 [facility] Lymphocytes/100 WBC Auto (Un sp spec)Ordered By: Alber Dunn on 10-28-2024 Lymphocytes/100 WBC (Bld) 5.6 % Low 19-41 [facility] MCV (mean corpuscular volume ) determinationOrdered By: Alber Dunn on 10-28-2024 MCV (RBC) [Entitic vol] 91.2 fL 80-94 [facility] Macrocytes Ql (Bld)Ordered B y: Alber Dunn on 10-28-2024 Macrocytosis RARE [facility] Macrocytes detection RARE [facility] Macrocytes detectionOrdered By: Alber Dunn on 10-28-2024 Macrocytes Ql (Bld) RARE [facility] Manual differential comment Marco Antonio (Bld) [Interp]Ordered By: Alber Dunn on 10-28-2024 Differential Comment SEE COMMENT [facility] Comment on above: MONOCYTOSIS NOTED Mean corpuscular hemoglobin (MCH) determinationOrdered By: Alber Dunn on 10-28-2024 MCH (RBC) [Entitic mass] 31.1 pg 27.0-32.0 [facility] Mean corpuscular hemoglobin concentration (MCHC) determinationOrdered By: Alber Dunn on 10-28-2024 MCHC (RBC) [Mass/Vol] 34.0 g/dL 32-36 [facility] Mean platelet volume determi nationOrdered By: Alber Dunn on 10-28-2024 Platelet mean volume (Bld) [Entitic vol] 12.0 fL 6.2-12.0 [facility] Microscopic analysis of urin e for red blood cells (RBC)Ordered By: Alber Dunn on 10-28-2024 Urine RBC > 100 SEEN /hpf 0-5 [facility] Monocyte percentageOrdered B y: Alber Dunn on 10-28-2024 Monocytes/100 WBC (Bld) 8.4 % 0-10 [facility] Mucus LM Ql (Urine sed)Order ed By: Alber Dunn on 10-28-2024 Mucus Ql (Urine sed) 0 SEEN /hpf [facility] Neutrophil percentageOrdered By: Alber Dunn on 10-28-2024 Neutrophils/100 WBC (Bld) 83.0 % High 47-70 [facility] Nitrite Test strip Ql (U)Ord ered By: Alber Dunn on 10-28-2024 Nitrite Ql (U) Negative Negative [facility] Nucleated red blood cell per centageOrdered By: Alber Dunn on 10-28-2024 Nucleated RBC/100 WBC (Bld) [Ratio] 0 % 0-5 [facility] Osmolality (U) [Osmolality]O rdered By: Hill Wright on 10-28-2024 Osmolality ur 484 mOsm/KG >50 [facility] Osmolality urOrdered By: Hugo Wright on 10-28-2024 Osmolality (U) [Osmolality] 484 mOsm/KG >50 [facility] Ovalocytes LM Ql (Bld)Ordere d By: Alber Dunn on 10-28-2024 Ovalocytes RARE [facility] Pathologist review Marco Antonio (Unsp spec) [Interp]Ordered By: Alber Dunn on 10-28-2024 Differential Pathologist's Review [facility] Platelet countOrdered By: Hernesto Dunn on 10-28-2024 Platelets (Bld) [#/Vol] 142 10*3/uL Low 150-450 [facility] Platelets LM Ql (Bld)Ordered By: Alber Dunn on 10-28-2024 Platelet Estimate ADEQUATE ADEQ [facility] Potassium (Unsp spec) [Mass/ Vol]Ordered By: Alber Dunn on 10-28-2024 Potassium [Moles/Vol] 4.5 mmol/L 3.3-5.1 [facility] Comment on above: Hemolysis present, R esults could be affected. Protein Test strip Ql (U)Ord ered By: Alber Dunn on 10-28-2024 Protein Ql (U) 500 mg/dl High Negative [facility] RBC Auto (Bld) [#/Vol]Ordere d By: Alber Dunn on 10-28-2024 RBC (Bld) [#/Vol] 4.09 10*6/uL Low 4.6-6.2 [facility] RBC morphology finding Nom ( Bld)Ordered By: Alber Dunn on 10-28-2024 Red Blood Cell Morphology N CHROM NORMAL NORM C&C [facility] Serum creatinine measurement (mass/volume)Ordered By: Alber Dunn on 10-28-2024 Creatinine [Mass/Vol] 1.33 mg/dL High 0.70-1.20 [facility] Serum globulin measurementOr dered By: Alber Dunn on 10-28-2024 Globulin (S) [Mass/Vol] 3.4 g/dL 2.2-4.2 [facility] Serum glucose measurement (m ass/volume)Ordered By: Alber Dunn on 10-28-2024 Glucose [Mass/Vol] 338 mg/dL High 70-99 [facility] Serum or plasma alanine thomas otransferase (ALT) measurementOrdered By: Alber Dunn on 10-28-2024 ALT [Catalytic activity/Vol] 23 U/L <47 [facility] Serum or plasma albumin roosevelt urement (mass/volume)Ordered By: Alber Dunn on 10-28-2024 Albumin [Mass/Vol] 2.5 g/dL Low 3.5-5.0 [facility] Serum or plasma albumin/glob ulin mass ratioOrdered By: Alber Dunn on 10-28-2024 Albumin/Globulin [Mass ratio] 0.7 {ratio} Low 0.9-2.4 [facility] Serum or plasma alkaline kendrick sphatase measurementOrdered By: Alber Dunn on 10-28-2024 ALP [Catalytic activity/Vol] 274 U/L High 40-129 [facility] Serum or plasma calcium roosveelt urement (mass/volume)Ordered By: Alber Dunn on 10-28-2024 Calcium [Mass/Vol] 9.2 mg/dL 7.6-11.0 [facility] Serum or plasma urea nitroge n measurement (mass/volume)Ordered By: Alber Dunn on 10-28-2024 Urea nitrogen [Mass/Vol] 25 mg/dL High 4-19 [facility] Sodium levelOrdered By: Alber Dunn on 10-28-2024 Sodium [Moles/Vol] 128 mmol/L Low 133-145 [facility] Total proteinOrdered By: Viraj Dunn on 10-28-2024 Protein [Mass/Vol] 5.9 g/dL 5.9-8.4 [facility] Urine blood detectionOrdered By: Alber Dunn on 10-28-2024 Urine Occult Blood 250 /ul High Negative [facility] Urine clarityOrdered By: Viraj Dunn on 10-28-2024 Clarity (U) Cloudy Clear [facility] Urine color determinationOrd ered By: Alber Dunn on 10-28-2024 Color (U) Red Yellow [facility] Urine leukocyte esterase det ection by dipstickOrdered By: Alber Dunn on 10-28-2024 Leukocyte esterase Test strip Ql (U) 500 /ul High Negative [facility] Urine pHOrdered By: Alber Khalil ghisai on 10-28-2024 pH (U) 6.5 [pH] 5.0 - 8.0 [facility] Urine sediment bacteria coun t by microscopy (number/high power field)Ordered By: Alber Dunn on 10-28-2024 Bacteria LM.HPF (Urine sed) [#/Area] 1 /[HPF] None Seen [facility] Urine specific gravity measu rementOrdered By: Alber Dunn on 10-28-2024 Specific gravity (U) [Rel density] 1.015 1.002-1.030 [facility] Urobilinogen Ql (U)Ordered B y: Alber Dunn on 10-28-2024 Urine Urobilinogen Normal mg/dl Normal [facility] White blood cell (WBC) count Ordered By: Alber Dunn on 10-28-2024 WBC (Bld) [#/Vol] 22.9 10*3/uL High 4.4-11.0 [facility] White blood cell countOrdere d By: Alber Dunn on 10-28-2024 Urine WBC >100 SEEN /hpf 0-5 [facility] APTTon 10-04-2024 aPTT Coag (PPP) [Time] 40 s High [facility] Albuminon 10-04-2024 Albumin (Body fld) [Mass/Vol] <0.5 Normal Not established [facility] Comment on above: Order Comment: Venip uncture immediately after or during the administration of Metamizole may lead to falsely low results. Testing should be performed immediately prior to Metamizole dosing. Performed By: #### 2 524-7 #### MIREYA SHAH ([id number]) [facility] ([facility]) [facility] [place] [address] Bacteria identifiedon 2024 Bacteria identified Cx Nom (Body fld) Test: Sterile Fluid Culture/Smear Specimen Source: Pleural Specimen Type: Fluid Specimen Date: 10/04/20241713 Result Date: 10/08/2024824 Result Status: Final result Resulting Lab: [facility] [id number] [place] [address] CULTURE No growth aerobically and anaerobically STAIN (1+) Rare Polymorphonuclear leukocytes No organisms seen Normal [facility] Comment on above: Performed By: #### 2 524-7 #### MIREYA SHAH ([id number]) [facility] ([facility]) [address] [place] [address] Basic metabolic 2000 panelon 10-04-2024 Anion gap [Moles/Vol] 8 mmol/L Low 10 - 2 0 mmol/L [facility] Calcium [Mass/Vol] 8.1 mg/dL Low 8.6 - 10. 3 mg/dL [facility] Chloride [Moles/Vol] 109 mmol/L High 98 - 10 7 mmol/L [facility] CO2 [Moles/Vol] 24 mmol/L 21 - 32 mmol/L [facility] Creatinine [Mass/Vol] 0.73 mg/dL 0.50 - 1.30 mg/dL [facility] eGFR - PINF [facility] Comment on above: Calculations of patric mated GFR are performed using the 2020 CKD-EPI Study Refit equation without the race variable for the IDMS-Traceable creatinine methods. https://jasn.asnjournals.org/content/early//ASN.2020 684482 Glucose [Mass/Vol] 197 mg/dL High 74 - 99 mg/dL [facility] Potassium [Moles/Vol] 3.9 mmol/L 3.5 - 5.3 mmol/L [facility] Sodium [Moles/Vol] 137 mmol/L 136 - 145 mmol/L [facility] Urea nitrogen [Mass/Vol] 17 mg/dL 6 - 23 mg/dL [facility] Anion gap [Moles/Vol] 8 mmol/L Low 10-20 [facility] Comment on above: Performed By: #### 2 4321-2 #### MIREYA SHAH ([id number]) [facility] ([facility]) [facility] [place] [address] Calcium [Mass/Vol] 8.1 mg/dL Low 8.6-10.3 [facility] Comment on above: Performed By: #### 2 4321-2 #### MIREYA SHAH ([id number]) [facility] ([facility]) [address] [place] [address] Chloride [Moles/Vol] 109 mmol/L High 98-107 [facility] Comment on above: Performed By: #### 2 4321-2 #### MRIEYA SHAH ([id number]) [facility] ([facility]) [address] [place] [address] CO2 [Moles/Vol] 24 mmol/L Normal 21-32 [facility] Comment on above: Performed By: #### 2 4321-2 #### MIREYA SHAH ([id number]) [facility] ([facility]) [facility] [place] [address] Creatinine [Mass/Vol] 0.73 mg/dL Normal 0.50-1.30 [facility] Comment on above: Performed By: #### 2 4321-2 #### MIREYA SHAH ([id number]) [facility] ([facility]) [address] [place] [address] GFR/1.73 sq M.predicted MDRD (S/P/Bld) [Vol rate/Area] mL/min/{1.73_m2} Normal >60 [facility] Comment on above: Result Comment: Calc ulations of estimated GFR are performed using the 2020 CKD-EPI Study Refit equation without the race variable for the IDMS-Traceable creatinine methods. https://jasn.asnjournals.org/content/early/ASN.2020 346619 Performed By: #### 2 4321-2 #### MIREYA SHAH ([id number]) [facility] ([facility]) [address] [place] [address] Glucose [Mass/Vol] 197 mg/dL High 74-99 [facility] Comment on above: Performed By: #### 2 4321-2 #### MIREYA SHAH ([id number]) [facility] ([facility]) [address] [place] [address] Potassium [Moles/Vol] 3.9 mmol/L Normal 3.5-5.3 [facility] Comment on above: Performed By: #### 2 4321-2 #### MIREYA SHAH ([id number]) [facility] ([facility]) [address] [place] [address] Sodium [Moles/Vol] 137 mmol/L Normal 136-145 [facility] Comment on above: Performed By: #### 2 4321-2 #### MIREYA SHAH ([id number]) [facility] ([facility]) [address] [place], [place] [id number] Urea nitrogen [Mass/Vol] 17 mg/dL Normal 6-23 [facility] Comment on above: Performed By: #### 2 4321-2 #### MIREYA SHAH ([id number]) [facility] ([facility]) [address] [place] [address] CBC W Auto Differential pane l (Bld)on 10-04-2024 Basophils (Bld) [#/Vol] 0.02 10*3/uL [facility] Basophils/100 WBC (Bld) 0.4 % 0.0 - 2.0 % [facility] Eosinophils (Bld) [#/Vol] 0.15 10*3/uL [facility] Eosinophils/100 WBC (Bld) 2.7 % 0.0 - 6.0 % [facility] Erythrocyte distribution width (RBC) [Ratio] 22.1 % High 11.5 - 14.5 % [facility] Hematocrit (Bld) [Volume fraction] 29.8 % Low 41.0 - 52.0 % [facility] Hemoglobin (Bld) [Mass/Vol] 9.3 g/dL Low 13.5 - 17.5 g/dL [facility] Immature granulocytes (Bld) [#/Vol] 0.01 10*3/uL [facility] Immature granulocytes/100 WBC (Bld) 0.2 % 0.0 - 0.9 % [facility] Comment on above: Immature Granulocyte Count (IG) includes promyelocytes, myelocytes and metamyelocytes but does not include bands. Percent differential counts (%) should be interpreted in the context of the absolute cell counts (cells/UL). Interpretation and review of laboratory results Abnormal [facility] Lymphocytes (Bld) [#/Vol] 0.64 10*3/uL Low [facility] Lymphocytes/100 WBC (Bld) 11.5 % 13.0 - 44.0 % [facility] MCH (RBC) [Entitic mass] 30 pg 26.0 - 34.0 pg [facility] MCHC (RBC) [Mass/Vol] 31.2 g/dL Low 32.0 - 36.0 g/dL [facility] MCV (RBC) [Entitic vol] 96 fL 80 - 100 fL [facility] Monocytes (Bld) [#/Vol] 0.46 10*3/uL [facility] Monocytes/100 WBC (Bld) 8.3 % 2.0 - 10.0 % [facility] Neutrophils (Bld) [#/Vol] 4.28 10*3/uL [facility] Comment on above: Percent differential counts (%) should be interpreted in the context of the absolute cell counts (cells/uL). Neutrophils/100 WBC (Bld) 76.9 % 40.0 - 80.0 % [facility] Nucleated RBC/100 WBC (Bld) [Ratio] 0 % [facility] Platelets (Bld) [#/Vol] 65 10*3/uL Low [facility] RBC (Bld) [#/Vol] 3.1 10*6/uL Low [facility] WBC (Bld) [#/Vol] 5.6 10*3/uL [facility] Basophils (Bld) [#/Vol] 0.02 x10*3/uL Normal 0.00-0.10 [facility] Comment on above: Performed By: #### 5 7021-8 #### MIREYA SHAH ([id number]) [facility] ([facility]) [address] [place] [address] 93468 Basophils/100 WBC (Bld) 0.4 % Normal 0.0-2.0 [facility] Comment on above: Performed By: #### 5 7021-8 #### MIREYA SHAH ([id number]) [facility] ([facility]) [address] [place] [address] 43531 Eosinophils (Bld) [#/Vol] 0.15 x10*3/uL Normal 0.00-0.70 [facility] Comment on above: Performed By: #### 5 70-8 #### MIREYA SHAH ([id number]) [facility] ([facility]) [address] [place] [address] 30510 Eosinophils/100 WBC (Bld) 2.7 % Normal 0.0-6.0 [facility] Comment on above: Performed By: #### 5 7021-8 #### MIREYA SHAH ([id number]) [facility] ([facility]) [address] [place] [address] 28875 Erythrocyte distribution width (RBC) [Ratio] 22.1 % High 11.5-14.5 [facility] Comment on above: Performed By: #### 5 7021-8 #### MIREYA SHAH ([id number]) [facility] ([facility]) [address] [place] [address] 18523 Hematocrit (Bld) [Volume fraction] 29.8 % Low 41.0-52.0 [facility] Comment on above: Performed By: #### 5 7021-8 #### MIREYA SHAH ([id number]) [facility] ([facility]) [address] [place] [address] 30668 Hemoglobin (Bld) [Mass/Vol] 9.3 g/dL Low 13.5-17.5 [facility] Comment on above: Performed By: #### 5 7021-8 #### MIREYA SHAH ([id number]) [facility] ([facility]) [address] [place] [address] 06015 Immature granulocytes (Bld) [#/Vol] 0.01 x10*3/uL Normal 0.00-0.70 [facility] Comment on above: Performed By: #### 5 7021-8 #### MIREYA SHAH ([id number]) [facility] ([facility]) [address] [place] [address] 49893 Immature granulocytes/100 WBC (Bld) 0.2 % Normal 0.0-0.9 [facility] Comment on above: Result Comment: Danielle ture Granulocyte Count (IG) includes promyelocytes, myelocytes and metamyelocytes but does not include bands. Percent differential counts (%) should be interpreted in the context of the absolute cell counts (cells/UL). Performed By: #### 5 7021-8 #### MIREYA SHAH ([id number]) [facility] ([facility]) [address] [place] [address] 71171 Lymphocytes (Bld) [#/Vol] 0.64 x10*3/uL Low 1.20-4.80 [facility] Comment on above: Performed By: #### 5 7021-8 #### MIREYA SHAH ([id number]) [facility] ([facility]) [address] [place] [address] 52294 Lymphocytes/100 WBC (Bld) 11.5 % Normal 13.0-44.0 [facility] Comment on above: Performed By: #### 5 7021-8 #### MIREYA SHAH ([id number]) [facility] ([facility]) [address] [place] [address] 06655 MCH (RBC) [Entitic mass] 30.0 pg Normal 26.0-34.0 [facility] Comment on above: Performed By: #### 5 7021-8 #### MIREYA SHAH ([id number]) [facility] ([facility]) [address] [place] [address] 88662 MCHC (RBC) [Mass/Vol] 31.2 g/dL Low 32.0-36.0 [facility] Comment on above: Performed By: #### 5 7021-8 #### MIREYA SHAH ([id number]) [facility] ([facility]) [address] [place] [address] 92471 MCV (RBC) [Entitic vol] 96 fL Normal 80-[address] [facility] Comment on above: Performed By: #### 5 7021-8 #### MIREYA SHAH ([id number]) [facility] ([facility]) [address] [place] [address] 56215 Monocytes (Bld) [#/Vol] 0.46 x10*3/uL Normal 0.10-1.00 [facility] Comment on above: Performed By: #### 5 7021-8 #### MIREYA SHAH ([id number]) [facility] ([facility]) [address] [place] [address] 58983 Monocytes/100 WBC (Bld) 8.3 % Normal 2.0-10.0 [facility] Comment on above: Performed By: #### 5 7021-8 #### MIREYA SHAH ([id number]) [facility] ([facility]) [address] [place] [address] 32375 Neutrophils (Bld) [#/Vol] 4.28 x10*3/uL Normal 1.20-7.70 [facility] Comment on above: Result Comment: Perc ent differential counts (%) should be interpreted in the context of the absolute cell counts (cells/uL). Performed By: #### 5 7021-8 #### MIREYA SHAH ([id number]) [facility] ([facility]) [address] [place] [address] 56865 Neutrophils/100 WBC (Bld) 76.9 % Normal 40.0-80.0 [facility] Comment on above: Performed By: #### 5 7021-8 #### MIREYA SHAH ([id number]) [facility] ([facility]) [facility] [place] [address] Nucleated RBC/100 WBC (Bld) [Ratio] 0.0 /100 WBCs Normal 0.0-0.0 [facility] Comment on above: Performed By: #### 5 7021-8 #### MIREYA SHAH ([id number]) [facility] ([facility]) [address] [place] [address] 03311 Platelets (Bld) [#/Vol] 65 x10*3/uL Low 150-450 [facility] Comment on above: Performed By: #### 5 7021-8 #### MIREYA SHAH ([id number]) [facility] ([facility]) [address] [place] [address] RBC (Bld) [#/Vol] 3.10 x10*6/uL Low 4.50-5.90 [facility] Comment on above: Performed By: #### 5 7021-8 #### MIREYA SHAH ([id number]) [facility] ([facility]) [address] [place], [place] [address] WBC (Bld) [#/Vol] 5.6 x10*3/uL Normal 4.4-11.3 [facility] Comment on above: Performed By: #### 5 7021-8 #### MIREYA SHAH ([id number]) [facility] ([facility]) [address] [place] [address] CT ABDOMEN PELVIS W IV CONTR [place] 10-04-2024 CT ABDOMEN PELVIS W IV CONTRAST Interpreted By: Yohana Huang, STUDY: CT ABDOMEN PELVIS W IV CONTRAST; 10/04/2024 2:16 pm INDICATION: Signs/Symptoms:generaliz ed abdominal pain, hx of cirrhosis, recent paracentesis. COMPARISON: None. ACCESSION NUMBER(S): [id number] ORDERING CLINICIAN: SRIRAM OLEARY TECHNIQUE: CT of [...] Yohana Huang 10/04/2024 2:28 PM Dictation workstation: [id number] [facility] CT Abdomen and Pelvis W cont rast Jamari 10-04-2024 Coronary artery calcifications. Anasarca. Ascites. Small irregular liver consistent with cirrhosis. Extensive collateral vessels. Enlarged spleen. Ventral and inguinal hernias containing ascitic fluid. MACRO: none Signed by: Yohana Huang 10/04/2024 2:28 PM Dictation workstation: [id number] Interpreted By: Yohana Chen, STUDY: CT ABDOMEN PELVIS W IV CONTRAST; 10/04/2024 2:16 pm INDICATION: Signs/Symptoms:generaliz ed abdominal pain, hx of cirrhosis, recent paracentesis. COMPARISON: None. ACCESSION NUMBER(S): [id number] ORDERING CLINICIAN: SRIRAM OLEARY TECHNIQUE: CT of [...] cirrhosis, recent paracentesis. COMPARISON: None. ACCESSION NUMBER(S): [id number] ORDERING CLINICIAN: SRIRAM OLEARY TECHNIQUE: CT of [...] Yohana Huang 10/04/2024 2:28 PM Dictation workstation: [id number] [facility] Work Phone: Radiology Study observation (narrative) [facility] Work Phone: CT Abdomen and Pelvis W cont rast IVOrdered By: Yohana Huang on 10-04-2024 [facility] Work Phone: Cell count panel (Body fld)O rdered By: Fortino Mcgee on 10-04-2024 Clarity (Body fld) Hazy Abnormal Clear [facility] Color (Body fld) Straw Colorless, Straw, Yellow [facility] Interpretation and review of laboratory results Abnormal [facility] RBC Auto (Body fld) [#/Vol] 2000 /uL see comment [facility] WBC (Body fld) [#/Vol] 0.058 10*3/uL See Commen t [facility] Body Fluid cell coun t reference ranges have not been established by [facility]. Reference ranges provided are based on published references. [facility] Cell count panel (Body fld)o n 10-04-2024 Clarity (Body fld) Hazy Abnormal Clear [facility] Comment on above: Order Comment: Body Fluid cell count reference ranges have not been established by [facility]. Reference ranges provided are based on published references. Performed By: #### 3 4556-1 #### MIREYA SHAH ([id number]) [facility] ([facility]) [address] [place] [address] Color (Body fld) Straw Normal Colorless, Straw, Yellow [facility] Comment on above: Order Comment: Body Fluid cell count reference ranges have not been established by [facility]. Reference ranges provided are based on published references. Performed By: #### 3 4556-1 #### MIREYA SHAH ([id number]) [facility] ([facility]) [address] [place] [address] RBC Auto (Body fld) [#/Vol] 2000 /uL Normal see comment [facility] Comment on above: Order Comment: Body Fluid cell count reference ranges have not been established by [facility]. Reference ranges provided are based on published references. Performed By: #### 3 4556-1 #### MIREYA SHAH ([id number]) [facility] ([facility]) [address] [place] [address] WBC (Body fld) [#/Vol] 0.058 10*3/uL Normal See Commen t [facility] Comment on above: Order Comment: Body Fluid cell count reference ranges have not been established by [facility]. Reference ranges provided are based on published references. Performed By: #### 3 4556-1 #### MIREYA SHAH ([id number]) [facility] ([facility]) [address] [place] [address] Coagulation surface inducedo n 10-04-2024 aPTT Coag (PPP) [Time] 40 s High 26-36 [facility] Comment on above: Order Comment: The A PTT is no longer used for monitoring Unfractionated Heparin Therapy. For monitoring Heparin Therapy, use the Heparin Assay. Performed By: #### 1 4979-9 #### MIREYA SHAH ([id number]) [facility] ([facility]) [address] [place] [address] Coagulation tissue factor in arunon 10-04-2024 PT Coag (PPP) [Time] 23.6 s High 9.8-12.4 [facility] Comment on above: Performed By: #### 5 902-2 #### MIREYA SHAH ([id number]) [facility] ([facility]) [address] [place] [address] 18083 Differential panel (Body fld )on 10-04-2024 Basophils/100 WBC (Body fld) 0 % not established [facility] Blasts/100 WBC Manual cnt (Body fld) 0 % not established [facility] Cells Counted Total (Body fld) [#] 100 [facility] Eosinophils/100 WBC Manual cnt (Body fld) 0 % see comment [facility] Immature Granulocytes %, Manual, Fluid 0 % not established [facility] Interpretation and review of laboratory results Abnormal [facility] Lymphocytes/100 WBC Manual cnt (Body fld) 19 % see comment [facility] Monocytes+Macrophages/1 00 WBC Manual cnt (Body fld) 17 % see comment [facility] Neutrophils/100 WBC (Body fld) 40 % see comment [facility] Other cells/100 WBC Manual cnt (Body fld) 24 % High not established [facility] Comment on above: Mesothelial cells no tianna by tech Plasma cells/100 WBC Manual cnt (Body fld) 0 % not established [facility] Body Fluid cell differential reference ranges have not been established by [facility]. Reference ranges provided are based on published references. [facility] Basophils/100 WBC (Body fld) 0 % Normal not established [facility] Comment on above: Order Comment: Body Fluid cell differential reference ranges have not been established by [facility]. Reference ranges provided are based on published references. Performed By: #### 2 9580-8 #### MIREYA SHAH ([id number]) [facility] ([facility]) [facility] [place] [address] Blasts/100 WBC Manual cnt (Body fld) 0 % Normal not established [facility] Comment on above: Order Comment: Body Fluid cell differential reference ranges have not been established by [facility]. Reference ranges provided are based on published references. Performed By: #### 2 9580-8 #### MIREYA SHAH ([id number]) [facility] ([facility]) [address] [place] [address] Cells Counted Total (Body fld) [#] 100 Normal [facility] Comment on above: Order Comment: Body Fluid cell differential reference ranges have not been established by [facility]. Reference ranges provided are based on published references. Performed By: #### 2 9580-8 #### MIREYA SHAH ([id number]) [facility] ([facility]) [address] [place] [address] 86719 Eosinophils/100 WBC Manual cnt (Body fld) 0 % Normal see comment [facility] Comment on above: Order Comment: Body Fluid cell differential reference ranges have not been established by [facility]. Reference ranges provided are based on published references. Performed By: #### 2 9580-8 #### MIREYA SHAH ([id number]) [facility] ([facility]) [address] [place] [address] 04109 IMMATURE GRANULOCYTES IN FLUID 0 % Normal not established [facility] Comment on above: Order Comment: Body Fluid cell differential reference ranges have not been established by [facility]. Reference ranges provided are based on published references. Performed By: #### 2 9580-8 #### MIREYA SHAH ([id number]) [facility] ([facility]) [address] [place] [address] Lymphocytes/100 WBC Manual cnt (Body fld) 19 % Normal see comment [facility] Comment on above: Order Comment: Body Fluid cell differential reference ranges have not been established by [facility]. Reference ranges provided are based on published references. Performed By: #### 2 9580-8 #### MIREYA SHAH ([id number]) [facility] ([facility]) [address] [place] [address] Monocytes+Macrophages/1 00 WBC Manual cnt (Body fld) 17 % Normal see comment [facility] Comment on above: Order Comment: Body Fluid cell differential reference ranges have not been established by [facility]. Reference ranges provided are based on published references. Performed By: #### 2 9580-8 #### MIREYA SHAH ([id number]) [facility] ([facility]) [address] [place] [address] 95416 Neutrophils/100 WBC (Body fld) 40 % Normal see comment [facility] Comment on above: Order Comment: Body Fluid cell differential reference ranges have not been established by [facility]. Reference ranges provided are based on published references. Performed By: #### 2 9580-8 #### MIREYA SHAH ([id number]) [facility] ([facility]) [address] [place] [address] 51622 Other cells/100 WBC Manual cnt (Body fld) 24 % High not established [facility] Comment on above: Order Comment: Body Fluid cell differential reference ranges have not been established by [facility]. Reference ranges provided are based on published references. Result Comment: Meso thelial cells noted by tech Performed By: #### 2 9580-8 #### MIREYA SHAH ([id number]) [facility] ([facility]) [address] [place] [address] 56268 Plasma cells/100 WBC Manual cnt (Body fld) 0 % Normal not established [facility] Comment on above: Order Comment: Body Fluid cell differential reference ranges have not been established by [facility]. Reference ranges provided are based on published references. Performed By: #### 2 9580-8 #### MIREYA SHAH ([id number]) [facility] ([facility]) [address] [place] [address] 04758 Glucoseon 10-04-2024 Glucose (Body fld) [Mass/Vol] 200 mg/dL Normal Not established [facility] Comment on above: Order Comment: Venip uncture immediately after or during the administration of Metamizole may lead to falsely low results. Testing should be performed immediately prior to Metamizole dosing. Performed By: #### 2 524-7 #### MIREYA SHAH ([id number]) [facility] ([facility]) [address] [place] [address] 26085 Hepatic function 2000 panelo n 10-04-2024 Albumin BCP dye [Mass/Vol] 2.4 g/dL Low 3.4 - 5.0 g/dL [facility] ALP [Catalytic activity/Vol] 212 U/L High 33 - 120 U/L [facility] ALT With P-5'-P [Catalytic activity/Vol] 46 U/L 10 - 52 U/L [facility] Comment on above: Patients treated wit h Sulfasalazine may generate falsely decreased results for ALT. AST With P-5'-P [Catalytic activity/Vol] 49 U/L High 9 - 39 U/L [facility] Bilirubin [Mass/Vol] 1.8 mg/dL High 0.0 - 1 .2 mg/dL [facility] Bilirubin.direct [Mass/Vol] 0.7 mg/dL High 0.0 - 0.3 mg/dL [facility] Protein [Mass/Vol] 5.7 g/dL Low 6.4 - 8.2 g/dL [facility] Albumin BCP dye [Mass/Vol] 2.4 g/dL Low 3.4-5.0 [facility] Comment on above: Performed By: #### 2 4325-3 #### MIREYA SHAH ([id number]) [facility] ([facility]) [address] [place] [address] 06874 ALP [Catalytic activity/Vol] 212 U/L High 33-120 [facility] Comment on above: Performed By: #### 2 5-3 #### MIREYA SHAH ([id number]) [facility] ([facility]) [address] [place] [address] 23084 ALT With P-5'-P [Catalytic activity/Vol] 46 U/L Normal 10-52 [facility] Comment on above: Result Comment: Argenis ents treated with Sulfasalazine may generate falsely decreased results for ALT. Performed By: #### 2 4325-3 #### MIREYA SHAH ([id number]) [facility] ([facility]) [address] [place] [address] 36748 AST With P-5'-P [Catalytic activity/Vol] 49 U/L High 9-39 [facility] Comment on above: Performed By: #### 2 4325-3 #### MIREYA SHAH ([id number]) [facility] ([facility]) [facility] [place] [address] Bilirubin [Mass/Vol] 1.8 mg/dL High 0.0-1.2 [facility] Comment on above: Performed By: #### 2 4325-3 #### MIREYA SHAH ([id number]) [facility] ([facility]) [address] [place] [address] 03849 Bilirubin.direct [Mass/Vol] 0.7 mg/dL High 0.0-0.3 [facility] Comment on above: Performed By: #### 2 4325-3 #### MIREYA SHAH ([id number]) [facility] ([facility]) [address] [place] [address] 93813 Protein [Mass/Vol] 5.7 g/dL Low 6.4-8.2 [facility] Comment on above: Performed By: #### 2 4325-3 #### MIREYA SHAH ([id number]) [facility] ([facility]) [address] [place] [address] 09480 Lactateon 10-04-2024 Lactate [Moles/Vol] 2 mmol/L 0.4 - 2. 0 mmol/L [facility] Lactate [Moles/Vol] 2.0 mmol/L Normal 0.4-2.0 [facility] Comment on above: Order Comment: Venip uncture immediately after or during the administration of Metamizole may lead to falsely low results. Testing should be performed immediately prior to Metamizole dosing. Performed By: #### 2 524-7 #### MIREYA SHAH ([id number]) [facility] ([facility]) [address] [place] [address] 36278 Lactate [Moles/Vol]on 2024 Interpretation and review of laboratory results Normal [facility] Venipuncture immedia tely after or during the administration of Metamizole may lead to falsely low results. Testing should be performed immediately prior to Metamizole dosing. [facility] Lactate dehydrogenaseon - LDH Lactate to pyruvate reaction (Body fld) [Catalytic activity/Vol] <25 Normal Not established. [facility] Comment on above: Order Comment: Venip uncture immediately after or during the administration of Metamizole may lead to falsely low results. Testing should be performed immediately prior to Metamizole dosing. Performed By: #### 2 524-7 #### GOMES ALYSSA ([id number]) [facility] ([facility]) [address] [place] [address] Lipaseon 10-04-2024 Lipase [Catalytic activity/Vol] 56 U/L 9 - 82 U/L [facility] Lipase [Catalytic activity/V ol]on 10-04-2024 Interpretation and review of laboratory results Normal [facility] Venipuncture immedia tely after or during the administration of Metamizole may lead to falsely low results. Testing should be performed immediately prior to Metamizole dosing. [facility] No Panel Informationon 10-04 Interpretation and review of laboratory results Abnormal [facility] Interpretation and review of laboratory results Abnormal [facility] Non-inventory coordinator cytology studyon Non-gynecological cytology method study Pathology report.total SEE COMMENT Non-gynecologic Cytology Case: [id number] Authorizing Provider: Joey Huang DO Collected: 10/04/2024 1714 Ordering Location: [facility] Received: 10/05/2024 2[facility] Pathologist: Jarvis Guzman MD Specimen: ASCITIC FLUID Path report.final diagnosis SEE COMMENT A. ASCITIC FLUID: - NO MALIGNANT CELLS IDENTIFIED. Note: This case has been evaluated using a concentrated (ThinPrep) preparation. Laboratory comment SEE COMMENT Slide(s) initially screened by ABEL Castro at [address] [id number] By the signature on this report, the [...] Block) A1-1 Pap Stain NGYN ThinPrep Normal [facility] PT Coag (PPP) [Time]on 10-04 INR Coag (PPP) [Relative time] 2.1 {INR} High 0.9 - 1.1 [facility] INR Coag (PPP) [Relative time] 2.1 High 0.9-1.1 [facility] Comment on above: Performed By: #### 5 902-2 #### GOMES ALYSSA ([id number]) [facility] ([facility]) [address] [place] [address] Paracentesison 10-04-2024 Joey Huang DO 10/04/2024 5:18 PM Paracentesis Date/Time: 10/04/2024 5:17 PM Performed by: Joey Huang DO Authorized by: Joey Huang DO Consent: Consent obtained: Written Consent given by: Patient Risks, benefits, and alternatives were discussed: yes Risks discussed: Bleeding, bowel perforation and infection Alternatives discussed: No treatment [place] protocol: Procedure explained and questions answered to [...] Adhesive bandage Post-procedure details: Procedure completion: Tolerated [facility] Work Phone: [facility] Work Phone: Proteinon 10-04-2024 Protein (Body fld) [Mass/Vol] g/dL Normal Not established [facility] Comment on above: Order Comment: Venip uncture immediately after or during the administration of Metamizole may lead to falsely low results. Testing should be performed immediately prior to Metamizole dosing. Performed By: #### 2 524-7 #### MIREYA SHAH ([id number]) [facility] ([facility]) [address] [place] [address] Protime-INRon 10-04-2024 PT Coag (PPP) [Time] 23.6 s High [facility] Triacylglycerol lipaseon Lipase [Catalytic activity/Vol] 56 U/L Normal 9-82 [facility] Comment on above: Order Comment: Venip uncture immediately after or during the administration of Metamizole may lead to falsely low results. Testing should be performed immediately prior to Metamizole dosing. Performed By: #### 3 040-3 #### MIREYA SHAH ([id number]) [facility] ([facility]) [address] [place] [address] aPTT Coag (PPP) [Time]on The APTT is no longe r used for monitoring Unfractionated Heparin Therapy. For monitoring Heparin Therapy, use the Heparin Assay. [facility] pHon 10-04-2024 pH (Body fld) 7.82 Normal See Below [facility] Comment on above: Order Comment: Venip uncture immediately after or during the administration of Metamizole may lead to falsely low results. Testing should be performed immediately prior to Metamizole dosing. Performed By: #### 2 524-7 #### MIREYA SHAH ([id number]) [facility] ([facility]) [address] [place] [address] Glucose measurement at [facility] deOrdered By: Boone Izquierdo on 09-14-2024 Bedside Glucose (Misc Panel) 134 mg/dL High 74-106 [facility] Comment on above: MANAGEMENT OF PATIEN T CARE PER NURSING PROTOCOL Glucose [Mass/Vol] 134 mg/dL High 74-106 [facility] Glucose measurement at bedside 134 mg/dL High 74-106 [facility] Blood urea nitrogen (BUN)/cr eatinine ratioOrdered By: Jae Ash on 09-12-2024 Urea nitrogen/Creatinine [Mass ratio] 7.6 mg/mg Low 10-20 [facility] Blood urea nitrogen (BUN)/creatinine ratio 7.6 RATIO Low 10-20 [facility] Calcium [Mass/Vol]Ordered By : Jae Ash on 09-12-2024 Serum or plasma calcium measurement (mass/volume) 8.1 mg/dL Low 8.5-10.1 [facility] Carbon dioxide measurementOr dered By: Jae Ash on 09-12-2024 CO2 [Moles/Vol] 20.0 mmol/L Low 21.0-32.0 [facility] Carbon dioxide measurement 20.0 mmol/L Low 21.0-32.0 [facility] Chloride measurementOrdered By: Jae Ash on 09-12-2024 Chloride [Moles/Vol] 109 mmol/L High 98-107 [facility] Chloride measurement 109 mmol/L High 98-107 [facility] Creatinine [Mass/Vol]Ordered By: Jae Ash on 09-12-2024 Serum or plasma creatinine measurement (mass/volume) 0.92 mg/dL 0.70-1.30 [facility] Erythrocyte distribution wid th (RBC) [Ratio]Ordered By: Jae Ash on 09-12-2024 Erythrocyte distribution width ratio 19.7 % High 11.6-14.6 [facility] Erythrocyte distribution width standard deviation 63.5 fl High 35.1-43.9 [facility] Erythrocyte distribution wid th ratioOrdered By: Jae Ash on 09-12-2024 Erythrocyte distribution width (RBC) [Ratio] 19.7 % High 11.6-14.6 [facility] Erythrocyte distribution wid th standard deviationOrdered By: Jae Ash on 09-12-2024 Erythrocyte distribution width (RBC) [Entitic vol] 63.5 fL High 35.1-43.9 [facility] Erythrocyte distribution width (RBC) [Ratio] 63.5 fl High 35.1-43.9 [facility] Estimated glomerular filtrat ion rate (GFR) AmericanOrdered By: Jae Ash on 09-12-2024 Estimated GFR (MDRD) Amer 108 mL/min >60 [facility] Comment on above: GFR Calc Estimated glomerular filtration rate (GFR) 108 mL/min >60 [facility] Estimation of creatinine carolina aranceOrdered By: Jae Ash on 09-12-2024 Estimated Creatinine Clearance Calc 71.80 ml/min [facility] Estimation of creatinine clearance 71.80 ml/min [facility] Glomerular filtration rate ( GFR) estimationOrdered By: Jae Ash on 09-12-2024 Estimated GFR (MDRD) Non-Af Amer 89 mL/min >60 [facility] Comment on above: Non- GFR Calc GFR/1.73 sq M.predicted among non-blacks MDRD (S/P/Bld) [Vol rate/Area] 89 mL/min/{1.73_m2} >60 [facility] Glomerular filtration rate (GFR) estimation 89 mL/min >60 [facility] Glucose measurementOrdered B y: Jae Ash on 09-12-2024 Glucose [Mass/Vol] 149 mg/dL High 74-106 [facility] Comment on above: Fasting Glucose resu lt greater than or equal to 126 mg/dL suggests DIABETES MELLITUS per A.D.A. criteria. Glucose measurement 149 mg/dL High 74-106 [facility] Hematocrit Auto (Bld) [Volum e fraction]Ordered By: Jae Ash on 09-12-2024 Hematocrit (Bld) [Volume fraction] 25.8 % Low 40-54 [facility] Automated blood hematocrit (percentage) 25.8 % Low 40-54 [facility] Hemoglobin measurementOrdere d By: Jae Ash on 09-12-2024 Hemoglobin (Bld) [Mass/Vol] 8.1 g/dL Low 13.0-16.5 [facility] Hemoglobin measurement 8.1 g/dL Low 13.0-16.5 [facility] MCV (RBC) [Entitic vol]Order ed By: Jae Ash on 09-12-2024 MCV (mean corpuscular volume) determination 90.5 fL 80-94 [facility] MCV (mean corpuscular volume ) determinationOrdered By: Jae Ash on 09-12-2024 MCV (RBC) [Entitic vol] 90.5 fL 80-94 [facility] Mean corpuscular hemoglobin (MCH) determinationOrdered By: Jae Ash on 09-12-2024 MCH (RBC) [Entitic mass] 28.4 pg 27.0-32.0 [facility] Mean corpuscular hemoglobin (MCH) determination 28.4 pg 27.0-32.0 [facility] Mean corpuscular hemoglobin concentration (MCHC) determinationOrdered By: Jae Ash on 09-12-2024 MCHC (RBC) [Mass/Vol] 31.4 g/dL Low 32-36 [facility] Comment on above: Delta: 33.1 on 09/10 Mean corpuscular hemoglobin concentration (MCHC) determination 31.4 g/dL Low 32-36 [facility] Mean platelet volume determi nationOrdered By: Jae Ash on 09-12-2024 Platelet mean volume (Bld) [Entitic vol] 11.9 fL 6.2-12.0 [facility] Mean platelet volume determination 11.9 fl 6.2-12.0 [facility] Platelet countOrdered By: Sky Ash on 09-12-2024 Platelets (Bld) [#/Vol] 115 10*3/uL Low 150-450 [facility] Platelet count 115 K/mm3 Low 150-450 [facility] Potassium measurementOrdered By: Jae Ash on 09-12-2024 Potassium [Moles/Vol] 3.4 mmol/L Low 3.5-5.1 [facility] Potassium measurement 3.4 mmol/L Low 3.5-5.1 [facility] RBC Auto (Bld) [#/Vol]Ordere d By: Jae Ash on 09-12-2024 RBC (Bld) [#/Vol] 2.85 10*6/uL Low 4.6-6.2 [facility] Automated blood erythrocyte count 2.85 M/mm3 Low 4.6-6.2 [facility] Serum anion gap measurementO rdered By: Jae Ash on 09-12-2024 Anion gap [Moles/Vol] 7 mmol/L 5-15 [facility] Serum anion gap measurement 7 5-15 [facility] Serum or plasma calcium roosevelt urement (mass/volume)Ordered By: Jae Ash on 09-12-2024 Calcium [Mass/Vol] 8.1 mg/dL Low 8.5-10.1 [facility] Serum or plasma creatinine m easurement (mass/volume)Ordered By: Jae Ash on 09-12-2024 Creatinine [Mass/Vol] 0.92 mg/dL 0.70-1.30 [facility] Comment on above: The validity of the calculated GFR & GFRAA in patients over 70 years has not been determined. Clinical correlation is essential. Serum or plasma urea nitroge n measurement (mass/volume)Ordered By: Jae Ahs on 09-12-2024 Urea nitrogen [Mass/Vol] 7 mg/dL 02-18 [facility] Sodium levelOrdered By: Pasha Ash on 09-12-2024 Sodium [Moles/Vol] 136 mmol/L 136-145 [facility] Sodium level 136 mmol/L 136-145 [facility] Urea nitrogen [Mass/Vol]Orde red By: Jae Ash on 09-12-2024 Serum or plasma urea nitrogen measurement (mass/volume) 7 mg/dL 02-18 [facility] White blood cell (WBC) count Ordered By: Jae Ash on 09-12-2024 WBC (Bld) [#/Vol] 7.4 10*3/uL 4.4-11.0 [facility] White blood cell (WBC) count 7.4 K/mm3 4.4-11.0 [facility] Serum or plasma trough vanco mycin levelOrdered By: Thai Thurston on 09-10-2024 Vancomycin trough [Mass/Vol] 15.7 ug/mL High 5.0-15.0 [facility] Vancomycin trough [Mass/Vol] Ordered By: Thai Thurston on 09-10-2024 Vancomycin Level Trough 15.7 ug/mL High 5.0-15.0 [facility] Comment on above: VANCOMYCIN STANDARED DRUG THERAPY TROUGH LEVEL: 5.0 - 15.0 mg/L VANCOMYCIN HIGH INTENSITY THERAPY TROUGH LEVEL: 15.0 - 20.0 mg/L High Intensity therapy recommended for serious lifethreatening infections include:- Ureoaskziv-Hnqqqltwulke-Nzrtjtvtl (Ventilator/Healtcare Associated)-Sepsis PLEASE CONTACT PHARMACY SERVICES (#[id number]) FOR INTERPRETATIONOF RESULTS. Serum or plasma trough vancomycin level 15.7 ug/mL High 5.0-15.0 [facility] Serum or plasma vancomycin l evel (mass/volume)Ordered By: Maria Guadalupe Shore on 09-08-2024 Vancomycin [Mass/Vol] 16.5 ug/mL High 0.0-15.0 [facility] Vancomycin [Mass/Vol]Ordered By: Maria Guadalupe Shore on 09-08-2024 Random Vancomycin Level 16.5 ug/mL High 0.0-15.0 [facility] Comment on above: VANCOMYCIN STANDARD DRUG THERAPY: CRITICAL VALUE IS > 15.0 mg/L VANCOMYCIN HIGH INTENSITY THERAPY: CRITICAL VALUE IS > 20.0 mg/L PLEASE CONTACT PHARMACY SERVICES (#[id number]) FOR INTERPRETATIONOF RESULTS. THIS RESULT DOES NOT REPRESENT A PEAK OR TROUGHLEVEL FOR THIS DRUG. Serum or plasma vancomycin level (mass/volume) 16.5 ug/mL High 0.0-15.0 [facility] Absolute lymphocyte countOrd ered By: Anurag Irene on 09-07-2024 Lymphocytes Auto (Unsp spec) [#/Vol] 0.95 10*3/uL 0.83-4.51 [facility] Absolute neutrophil countOrd ered By: Anurag Irene on 09-07-2024 Neutrophils (Bld) [#/Vol] 13.3 10*3/uL High 2.0-7.7 [facility] Absolute neutrophil count 13.3 X10^3/uL High 2.0-7.7 [facility] Automated lymphocyte count a s percentage of total leukocytesOrdered By: Anurag Irene on 09-07-2024 Lymphocytes/100 WBC Auto (Unsp spec) 5.8 % Low 19-41 [facility] Basophil percentageOrdered B y: Anurag Irene on 09-07-2024 Basophils/100 WBC (Bld) 0.4 % 0-1 [facility] Basophil percentage 0.4 % 0-1 [facility] Eosinophil percentageOrdered By: Anurag Irene on 09-07-2024 Eosinophils/100 WBC (Bld) 3.0 % 0-5 [facility] Eosinophil percentage 3.0 % 0-5 [facility] Immature granulocytes/100 WB C Auto (Bld)Ordered By: Anurag Irene on 09-07-2024 Immature granulocytes/100 WBC (Bld) 1.400 % High 0.0-0.9 [facility] Comment on above: IG% - Immature Granu locytes (promyelocytes, myelocytes and metamyelocytes) > 1% indicates that a LEFT SHIFT is Present. Automated immature granulocyte percentage 1.400 % High 0.0-0.9 [facility] Lymphocytes Auto (Unsp spec) [#/Vol]Ordered By: Anurag Irene on 09-07-2024 Lymphocytes (Bld) [#/Vol] 0.95 10*3/uL 0.83-4.51 [facility] Absolute lymphocyte count 0.95 X10^3/uL 0.83-4.51 [facility] Lymphocytes/100 WBC Auto (Un sp spec)Ordered By: Anurag Irene on 09-07-2024 Lymphocytes/100 WBC (Bld) 5.8 % Low 19-41 [facility] Automated lymphocyte count as percentage of total leukocytes 5.8 % Low 19-41 [facility] Monocyte percentageOrdered B y: Anurag Irene on 09-07-2024 Monocytes/100 WBC (Bld) 8.6 % 0-10 [facility] Monocyte percentage 8.6 % 0-10 [facility] Neutrophil percentageOrdered By: Anurag Irene on 09-07-2024 Neutrophils/100 WBC (Bld) 80.8 % High 47-70 [facility] Neutrophil percentage 80.8 % High 47-70 [facility] Nucleated red blood cell per centageOrdered By: Anurag Irene on 09-07-2024 Nucleated RBC/100 WBC (Bld) [Ratio] 0 % 0-5 [facility] Nucleated red blood cell percentage 0 % 0-5 [facility] Blood cultureOrdered By: [place] Irene on 09-06-2024 Bacteria identified Cx Nom (Bld) No growth in 5 days. [facility] Blood culture No growth in 5 days. [facility] Blood cultureOrdered By: Shi Joiner on 09-05-2024 Bacteria identified Cx Nom (Bld) Staphylococcus epidermidis Abnormal [facility] Blood culture Staphylococcus epidermidis Abnormal [facility] Folic acid measurementOrdere d By: Hill Wright on 09-05-2024 Folate 30.10 ng/mL 3.1-55.4 [facility] Folic acid measurement 30.10 ng/mL 3.1-55.4 [facility] Lactic acid measurementOrder ed By: Hill Wright on 09-05-2024 Lactate [Moles/Vol] 2.3 mmol/L High 0.4-2.0 [facility] Comment on above: Critical Result(s) C alled at: 08:26:40 09/05/2024 by: Lucy Haque to [facility]. Results read back by same. Lactic acid measurement 2.3 mmol/L High 0.4-2.0 [facility] Serum ethanol measurementOrd ered By: Hill Wright on 09-05-2024 Ethyl Alcohol Level 4.0 mg/dL [facility] Comment on above: The serum:whole bloo d ethanol ratio is approximately 1.14and varies slightly with hematocrit. Medical Alcohol reference interval and critical value innon-tolerant individuals; 50 - 100 Impairment 100 Intoxication 100 - 250 Severe Poisoning 250 - 400 Deep/possible fatal coma Serum ethanol measurement 4.0 mg/dL [facility] Vitamin B12 measurementOrder ed By: Hill Wright on 09-05-2024 Vitamin B12 Level > 2000 pg/mL High 211-911 [facility] Vitamin B12 measurement > 2000 pg/mL High 211-911 [facility] ALP [Catalytic activity/Vol] Ordered By: Rachel Joiner on 09-04-2024 Serum or plasma alkaline phosphatase measurement 269 U/L High 45-117 [facility] ALT [Catalytic activity/Vol] Ordered By: Rachel Joiner on 09-04-2024 Serum or plasma alanine aminotransferase (ALT) measurement 79 U/L High 16-61 [facility] Albumin [Mass/Vol]Ordered By : Rachel Joiner on 09-04-2024 Serum or plasma albumin measurement (mass/volume) 2.0 g/dL Low 3.2-5.0 [facility] Bilirubin Test strip Ql (U)O rdered By: Rachel Joiner on 09-04-2024 Bilirubin Ql (U) 1 mg/dL High Negative [facility] Comment on above: COLOR OF URINE MAY A FFECT DIPSTICK RESULTS. Bilirubin directOrdered By: Rachel Joiner on 09-04-2024 Bilirubin.direct [Mass/Vol] 1.80 mg/dL High 0.00-0.30 [facility] Bilirubin, totalOrdered By: Rachel Joiner on 09-04-2024 Bilirubin [Mass/Vol] 3.10 mg/dL High 0.20-1.00 [facility] Comment on above: For patients on eltr ombopag therapy, use of Dimension [place] TBIL is not recommended. Bilirubin, total 3.10 mg/dL High 0.20-1.00 [facility] Bilirubin.direct [Mass/Vol]O rdered By: Rachel Joiner on 09-04-2024 Bilirubin direct 1.80 mg/dL High 0.00-0.30 [facility] Blood cultureOrdered By: Shi Joiner on 09-04-2024 Bacteria identified Cx Nom (Bld) [facility] Clarity (U)Ordered By: Kaz Joiner on 09-04-2024 Urine clarity Clear Clear [facility] Color (U)Ordered By: Rachel Joiner on 09-04-2024 Urine color determination Yellow Yellow [facility] Epithelial cells.squamous LM Ql (Urine sed)Ordered By: Rachel Joiner on 09-04-2024 Epithelial cells.squamous LM.HPF (Urine sed) [#/Area] 0 /[HPF] 0-5 [facility] Glucose Ql (U)Ordered By: Brendan Joiner on 09-04-2024 Urine Glucose (UA) Normal mg/dl Normal [facility] Urine glucose detection Normal mg/dl Normal [facility] HbA1c (Bld) [Mass fraction]O rdered By: Hill Wright on 09-04-2024 Hemoglobin A1c percentage 7.3 % High 3.8-5.6 [facility] Hemoglobin A1c percentageOrd ered By: Hill Wright on 09-04-2024 HbA1c (Bld) [Mass fraction] 7.3 % High 3.8-5.6 [facility] Comment on above: Normal < 5.7 % Predi abetic 5.7 - 6.4 % Diabetic >or= 6.5 % Please note range changes. Ketones Test strip Ql (U)Ord ered By: Rachel Joiner on 09-04-2024 Ketones Ql (U) Negative Negative [facility] Laboratory - Chemistry and C hemistry - challengeOrdered By: Rachel Joiner on 09-04-2024 AST [Catalytic activity/Vol] 156 U/L High 15-37 [facility] Leukocyte esterase Test stri p Ql (U)Ordered By: Rachel Joiner on 09-04-2024 Urine leukocyte esterase detection by dipstick 100 /ul High Negative [facility] Methadone, urineOrdered By: Rachel Joiner on 09-04-2024 Urine Methadone Screen Negative < 300 ng/mL [facility] Microorganism identified Cx Nom (Unsp spec)Ordered By: Rachel Joiner on 09-04-2024 Bacteria Detection (PCR) Staphylococcus epidermidis Abnormal [facility] Bacteria Detection (PCR) mecA Resistance Marker Abnormal [facility] Organism identification mecA Resistance Marker Abnormal [facility] Microscopic analysis of urin e for red blood cells (RBC)Ordered By: Rachel Joiner on 09-04-2024 Urine RBC 10-25 SEEN /hpf 0-5 [facility] Microscopic analysis of urine for red blood cells (RBC) 10-25 SEEN /hpf 0-5 [facility] Mucus LM Ql (Urine sed)Order ed By: Rachel Joiner on 09-04-2024 Mucus Ql (Urine sed) 0 SEEN /hpf [facility] Nitrite Test strip Ql (U)Ord ered By: Rachel Joiner on 09-04-2024 Nitrite Ql (U) Negative Negative [facility] No Panel InformationOrdered By: Rachel Joiner on 09-04-2024 156 U/L High 15-37 [facility] Urine Drug Screen Comment [facility] Comment on above: CONFIRMATORY TESTING [...] MUST BE ORDERED SEPARATELY. USE TESTMNEMONIC: UTCA [facility] Organism identificationOrder ed By: Rachel Joiner on 09-04-2024 Microorganism identified Cx Nom (Unsp spec) Staphylococcus epidermidis Abnormal [facility] Microorganism identified Cx Nom (Unsp spec) mecA Resistance Marker Abnormal [facility] Protein Test strip Ql (U)Ord ered By: Rachle Joiner on 09-04-2024 Protein Ql (U) 30 mg/dl High Negative [facility] Urine protein assay by test strip, semi-quantitative 30 mg/dl High Negative [facility] Quantitative urine opiates m easurementOrdered By: Rachel Joiner on 09-04-2024 Opiates Ql (U) Positive High < 300 ng/mL [facility] Quantitative urine opiates measurement Positive High < 300 ng/mL [facility] Screening prostate specific antigen (PSA) measurementOrdered By: Hill Wright on 09-04-2024 Prostate Specific Antigen Screen 1.41 ng/mL 0.00-4.00 [facility] Comment on above: This test was perfor med using the TPSA assay method for [employer] chemistry system. Values obtained with differentassay methods cannot be used interchangably.When changing PSA assays in the course of monitoring apatient, additional sequential testing should be carriedout to confirm baseline values. Screening prostate specific antigen (PSA) measurement 1.41 ng/mL 0.00-4.00 [facility] Serum globulin measurementOr dered By: Rachel Joiner on 09-04-2024 Globulin (S) [Mass/Vol] 4.1 g/dL 2.2-4.2 [facility] Serum globulin measurement 4.1 g/dL 2.2-4.2 [facility] Serum or plasma alanine thomas otransferase (ALT) measurementOrdered By: Rachel Joiner on 09-04-2024 ALT [Catalytic activity/Vol] 79 U/L High 16-61 [facility] Serum or plasma albumin roosevelt urement (mass/volume)Ordered By: Rachel Joiner on 09-04-2024 Albumin [Mass/Vol] 2.0 g/dL Low 3.2-5.0 [facility] Serum or plasma alkaline kendrick sphatase measurementOrdered By: Rachel Joiner on 09-04-2024 ALP [Catalytic activity/Vol] 269 U/L High 45-117 [facility] Serum or plasma thyroid stim ulating hormone (TSH) measurement (units/volume)Ordered By: Hill Wright on 09-04-2024 TSH Qn 0.826 uIU/mL 0.358-3.740 [facility] Specific gravity (U) [Rel de nsity]Ordered By: Rachel Joiner on 09-04-2024 Urine specific gravity measurement 1.020 1.002-1.030 [facility] Squamous epithelial cells de tection in urine sediment by light microscopyOrdered By: Rachel Joiner on 09-04-2024 Epithelial cells.squamous LM Ql (Urine sed) 0 SEEN /hpf 0-5 [facility] Squamous epithelial cells detection in urine sediment by light microscopy 0 SEEN /hpf [facility] TSH QnOrdered By: Hill patino on 09-04-2024 Thyroid Stimulating Hormone (TSH) 0.826 uIU/mL 0.358-3.740 [facility] Serum or plasma thyroid stimulating hormone (TSH) measurement (units/volume) 0.826 uIU/mL 0.358-3.740 [facility] Total proteinOrdered By: Shi Joiner on 09-04-2024 Protein [Mass/Vol] 6.1 g/dL Low 6.4-8.2 [facility] Total protein 6.1 g/dL Low 6.4-8.2 [facility] Urine amphetamine measuremen tOrdered By: Rachel Joiner on 09-04-2024 Amphetamines Ql (U) Negative <1000 ng/mL [facility] Urine barbiturates measureme ntOrdered By: Rachel Joiner on 09-04-2024 Urine Barbiturates Screen Negative < 200 ng/mL [facility] Urine benzodiazepine levelOr dered By: Rachel Joiner on 09-04-2024 Benzodiazepines Ql (U) Negative < 200 ng/mL [facility] Urine blood detectionOrdered By: Rachel Joiner on 09-04-2024 Urine Occult Blood 150 /ul High Negative [facility] Urine blood detection 150 /ul High Negative [facility] Urine clarityOrdered By: Shi Joiner on 09-04-2024 Clarity (U) Clear Clear [facility] Urine cocaine levelOrdered B y: Rachel Joiner on 09-04-2024 Cocaine Ql (U) Negative < 300 ng/mL [facility] Urine color determinationOrd ered By: Rachel Joiner on 09-04-2024 Color (U) Yellow Yellow [facility] Urine cultureOrdered By: Hugo Wright on 09-04-2024 Bacteria identified Cx Nom (U) Staphylococcus epidermidis Abnormal [facility] Urine culture Staphylococcus epidermidis Abnormal [facility] Urine hjagf-0-mtjoacikbcfgmy abinol (THC) measurementOrdered By: Rachel Joiner on 09-04-2024 Cannabinoids Screen Ql (U) Negative < 50 ng/mL [facility] Urine glucose detectionOrder ed By: Rachel Joiner on 09-04-2024 Glucose Ql (U) Normal mg/dl Normal [facility] Urine ketones detection by t est stripOrdered By: Rachel Joiner on 09-04-2024 Urine ketones detection by test strip Negative < 50 ng/mL [facility] Urine leukocyte esterase det ection by dipstickOrdered By: Rachel Joiner on 09-04-2024 Leukocyte esterase Test strip Ql (U) 100 /ul High Negative [facility] Urine methylenedioxymethamph etamine (MDMA) measurementOrdered By: Rachel Joiner on 09-04-2024 MDMA (Ecstasy) Screen Negative < 500 ng/mL [facility] Urine pHOrdered By: Rachel silva on 09-04-2024 pH (U) 6.0 [pH] 5.0 - 8.0 [facility] Urine phencyclidine (PCP) de tectionOrdered By: Rachel Joiner on 09-04-2024 Phencyclidine Ql (U) Negative < 25 ng/mL [facility] Urine sediment bacteria coun t by microscopy (number/high power field)Ordered By: Rachel Joiner on 09-04-2024 Bacteria LM.HPF (Urine sed) [#/Area] 0 /[HPF] None Seen [facility] Urine specific gravity measu rementOrdered By: Rachel Joiner on 09-04-2024 Specific gravity (U) [Rel density] 1.020 1.002-1.030 [facility] Urine total bilirubin detect ion by test stripOrdered By: Rachel Joiner on 09-04-2024 Urine total bilirubin detection by test strip 1 mg/dL High Normal [facility] Urine urobilinogen measureme ntOrdered By: Rachel Joiner on 09-04-2024 Urobilinogen Ql (U) 1 mg/dl High Normal [facility] Urobilinogen Ql (U)Ordered B y: Rachel Joiner on 09-04-2024 Urobilinogen (U) [Mass/Vol] 1 mg/dL High Normal [facility] Venous blood ammonia measure mentOrdered By: Rachel Joiner on 09-04-2024 Ammonia (P) [Moles/Vol] 26.0 umol/L [facility] Venous blood ammonia measurement 26.0 umol/L [facility] White blood cell countOrdere d By: Rachel Joiner on 09-04-2024 Urine WBC 5-10 SEEN /hpf 0-5 [facility] Comment on above: Previous reported re sult: 0 SEEN /hpfEdited by: DANIEL on 09/04/24:2337 AMENDED REPORT 09/04/24 2647 WBC previously reported as: 0 SEEN /hpf White blood cell count 5-10 SEEN /hpf 0-5 [facility] White blood cell count 5-10 SEEN /hpf 0-5 [facility] pH (U)Ordered By: Rachel lambert on 09-04-2024 Urine pH 6.0 5.0 - 8.0 [facility] Absolute lymphocyte countOrd ered By: Bola Meraz on 09-02-2024 Lymphocytes Auto (Unsp spec) [#/Vol] 1.04 10*3/uL 0.83-4.51 [facility] Absolute neutrophil countOrd ered By: Bola Meraz on 09-02-2024 Neutrophils (Bld) [#/Vol] 14.0 10*3/uL High 2.0-7.7 [facility] Absolute neutrophil count 14.0 X10^3/uL High 2.0-7.7 [facility] Automated lymphocyte count a s percentage of total leukocytesOrdered By: Bola Meraz on 09-02-2024 Lymphocytes/100 WBC Auto (Unsp spec) 6.3 % Low 19-41 [facility] Basophil percentageOrdered B y: Bola Meraz on 09-02-2024 Basophils/100 WBC (Bld) 0.4 % 0-1 [facility] Basophil percentage 0.4 % 0-1 [facility] Blood urea nitrogen (BUN)/cr eatinine ratioOrdered By: Bola Meraz on 09-02-2024 Urea nitrogen/Creatinine [Mass ratio] 16.9 mg/mg 10-20 [facility] Blood urea nitrogen (BUN)/creatinine ratio 16.9 RATIO 10-20 [facility] Calcium [Mass/Vol]Ordered By : Bola Meraz on 09-02-2024 Serum or plasma calcium measurement (mass/volume) 8.9 mg/dL 8.5-10.1 [facility] Carbon dioxide measurementOr dered By: Bola Meraz on 09-02-2024 CO2 [Moles/Vol] 19.0 mmol/L Low 21.0-32.0 [facility] Carbon dioxide measurement 19.0 mmol/L Low 21.0-32.0 [facility] Chloride measurementOrdered By: Bola Meraz on 09-02-2024 Chloride [Moles/Vol] 107 mmol/L 98-107 [facility] Chloride measurement 107 mmol/L 98-107 [facility] Creatinine [Mass/Vol]Ordered By: Bola Meraz on 09-02-2024 Serum or plasma creatinine measurement (mass/volume) 2.54 mg/dL High 0.70-1.30 [facility] Eosinophil percentageOrdered By: Bola Meraz on 09-02-2024 Eosinophils/100 WBC (Bld) 1.3 % 0-5 [facility] Eosinophil percentage 1.3 % 0-5 [facility] Erythrocyte distribution wid th (RBC) [Ratio]Ordered By: Bola Meraz on 09-02-2024 Erythrocyte distribution width ratio 15.7 % High 11.6-14.6 [facility] Erythrocyte distribution width standard deviation 47.0 fl High 35.1-43.9 [facility] Erythrocyte distribution wid th ratioOrdered By: Bola Meraz on 09-02-2024 Erythrocyte distribution width (RBC) [Ratio] 15.7 % High 11.6-14.6 [facility] Erythrocyte distribution wid th standard deviationOrdered By: Bola Meraz on 09-02-2024 Erythrocyte distribution width (RBC) [Entitic vol] 47.0 fL High 35.1-43.9 [facility] Erythrocyte distribution width (RBC) [Ratio] 47.0 fl High 35.1-43.9 [facility] Estimated glomerular filtrat ion rate (GFR) AmericanOrdered By: Bola Meraz on 09-02-2024 Estimated GFR (MDRD) Amer 34 mL/min Low >60 [facility] Comment on above: GFR Calc Estimated glomerular filtration rate (GFR) 34 mL/min Low >60 [facility] Estimation of creatinine carolina aranceOrdered By: Bola Meraz on 09-02-2024 Estimated Creatinine Clearance Calc 37.67 ml/min [facility] Estimation of creatinine clearance 37.67 ml/min [facility] Glomerular filtration rate ( GFR) estimationOrdered By: Bola Meraz on 09-02-2024 Estimated GFR (MDRD) Non-Af Amer 28 mL/min Low >60 [facility] Comment on above: Non- GFR Calc GFR/1.73 sq M.predicted among non-blacks MDRD (S/P/Bld) [Vol rate/Area] 28 mL/min/{1.73_m2} Low >60 [facility] Glomerular filtration rate (GFR) estimation 28 mL/min Low >60 [facility] Glucose measurementOrdered B y: Bola Meraz on 09-02-2024 Glucose [Mass/Vol] 187 mg/dL [address] Comment on above: Fasting Glucose resu lt greater than or equal to 126 mg/dL suggests DIABETES MELLITUS per A.D.A. criteria. Glucose measurement 187 mg/dL [address] Glucose measurement at bedsi deOrdered By: Rick Carlin on 09-02-2024 Bedside Glucose (Misc Panel) 168 mg/dL [address] Comment on above: MANAGEMENT OF PATIEN T CARE PER NURSING PROTOCOL Glucose [Mass/Vol] 168 mg/dL [address] Glucose measurement at bedside 168 mg/dL [address] Hematocrit Auto (Bld) [Volum e fraction]Ordered By: Bola Meraz on 09-02-2024 Hematocrit (Bld) [Volume fraction] 30.8 % Low 40-54 [facility] Automated blood hematocrit (percentage) 30.8 % Low 40-54 [facility] Hemoglobin measurementOrdere d By: Bola Meraz on 09-02-2024 Hemoglobin (Bld) [Mass/Vol] 10.7 g/dL Low 13.0-16.5 [facility] Hemoglobin measurement 10.7 g/dL Low 13.0-16.5 [facility] Immature granulocytes/100 WB C Auto (Bld)Ordered By: Bola Meraz on 09-02-2024 Immature granulocytes/100 WBC (Bld) 1.300 % High 0.0-0.9 [facility] Comment on above: IG% - Immature Granu locytes (promyelocytes, myelocytes and metamyelocytes) > 1% indicates that a LEFT SHIFT is Present. Automated immature granulocyte percentage 1.300 % High 0.0-0.9 [facility] Lymphocytes Auto (Unsp spec) [#/Vol]Ordered By: Bola Meraz on 09-02-2024 Lymphocytes (Bld) [#/Vol] 1.04 10*3/uL 0.83-4.51 [facility] Absolute lymphocyte count 1.04 X10^3/uL 0.83-4.51 [facility] Lymphocytes/100 WBC Auto (Un sp spec)Ordered By: Bola Meraz on 09-02-2024 Lymphocytes/100 WBC (Bld) 6.3 % Low 19-41 [facility] Automated lymphocyte count as percentage of total leukocytes 6.3 % Low 19-41 [facility] MCV (RBC) [Entitic vol]Order ed By: Bola Meraz on 09-02-2024 MCV (mean corpuscular volume) determination 83.7 fL 80-94 [facility] MCV (mean corpuscular volume ) determinationOrdered By: Bola Meraz on 09-02-2024 MCV (RBC) [Entitic vol] 83.7 fL 80-94 [facility] Mean corpuscular hemoglobin (MCH) determinationOrdered By: Bola Meraz on 09-02-2024 MCH (RBC) [Entitic mass] 29.1 pg 27.0-32.0 [facility] Mean corpuscular hemoglobin (MCH) determination 29.1 pg 27.0-32.0 [facility] Mean corpuscular hemoglobin concentration (MCHC) determinationOrdered By: Bola Meraz on 09-02-2024 MCHC (RBC) [Mass/Vol] 34.7 g/dL 32-36 [facility] Mean corpuscular hemoglobin concentration (MCHC) determination 34.7 g/dL 32-36 [facility] Mean platelet volume determi nationOrdered By: Bola Meraz on 09-02-2024 Platelet mean volume (Bld) [Entitic vol] 12.8 fL High 6.2-12.0 [facility] Mean platelet volume determination 12.8 fl High 6.2-12.0 [facility] Monocyte percentageOrdered B y: Bola Meraz on 09-02-2024 Monocytes/100 WBC (Bld) 6.0 % 0-10 [facility] Monocyte percentage 6.0 % 0-10 [facility] Neutrophil percentageOrdered By: Bola Meraz on 09-02-2024 Neutrophils/100 WBC (Bld) 84.7 % High 47-70 [facility] Neutrophil percentage 84.7 % High 47-70 [facility] Nucleated red blood cell per centageOrdered By: Bola Meraz on 09-02-2024 Nucleated RBC/100 WBC (Bld) [Ratio] 0 % 0-5 [facility] Nucleated red blood cell percentage 0 % 0-5 [facility] Platelet countOrdered By: Oliver on 09-02-2024 Platelets (Bld) [#/Vol] 82 10*3/uL Low 150-450 [facility] Platelet count 82 K/mm3 Low 150-450 [facility] Potassium measurementOrdered By: Bola Meraz on 09-02-2024 Potassium [Moles/Vol] 4.0 mmol/L 3.5-5.1 [facility] Potassium measurement 4.0 mmol/L 3.5-5.1 [facility] RBC Auto (Bld) [#/Vol]Ordere d By: Bola Meraz on 09-02-2024 RBC (Bld) [#/Vol] 3.68 10*6/uL Low 4.6-6.2 [facility] Automated blood erythrocyte count 3.68 M/mm3 Low 4.6-6.2 [facility] Serum anion gap measurementO rdered By: Bola Meraz on 09-02-2024 Anion gap [Moles/Vol] 8 mmol/L 5-15 [facility] Serum anion gap measurement 8 5-15 [facility] Serum or plasma calcium roosevelt urement (mass/volume)Ordered By: Bola Meraz on 09-02-2024 Calcium [Mass/Vol] 8.9 mg/dL 8.5-10.1 [facility] Serum or plasma creatinine m easurement (mass/volume)Ordered By: Bola Meraz on 09-02-2024 Creatinine [Mass/Vol] 2.54 mg/dL High 0.70-1.30 [facility] Comment on above: The validity of the calculated GFR & GFRAA in patients over 70 years has not been determined. Clinical correlation is essential. Serum or plasma urea nitroge n measurement (mass/volume)Ordered By: Bola Meraz on 09-02-2024 Urea nitrogen [Mass/Vol] 43 mg/dL High 7-18 [facility] Sodium levelOrdered By: Deanna Meraz on 09-02-2024 Sodium [Moles/Vol] 133 mmol/L Low 136-145 [facility] Sodium level 133 mmol/L Low 136-145 [facility] Urea nitrogen [Mass/Vol]Orde red By: Bola Meraz on 09-02-2024 Serum or plasma urea nitrogen measurement (mass/volume) 43 mg/dL High 7-18 [facility] White blood cell (WBC) count Ordered By: Bola Meraz on 09-02-2024 WBC (Bld) [#/Vol] 16.5 10*3/uL High 4.4-11.0 [facility] White blood cell (WBC) count 16.5 K/mm3 High 4.4-11.0 [facility] ALP [Catalytic activity/Vol] Ordered By: Maria Guadalupe Shore on 08-30-2024 Serum or plasma alkaline phosphatase measurement 143 U/L High 45-117 [facility] ALT [Catalytic activity/Vol] Ordered By: Maria Guadalupe Shore on 08-30-2024 Serum or plasma alanine aminotransferase (ALT) measurement 19 U/L 16-61 [facility] Albumin [Mass/Vol]Ordered By : Maria Guadalupe Shore on 08-30-2024 Serum or plasma albumin measurement (mass/volume) 1.9 g/dL Low 3.2-5.0 [facility] Bilirubin directOrdered By: Maria Guadalupe Shore on 08-30-2024 Bilirubin.direct [Mass/Vol] 0.83 mg/dL High 0.00-0.30 [facility] Bilirubin, totalOrdered By: Maria Guadalupe Shore on 08-30-2024 Bilirubin [Mass/Vol] 1.30 mg/dL High 0.20-1.00 [facility] Comment on above: For patients on eltr ombopag therapy, use of Dimension [place] TBIL is not recommended. Bilirubin, total 1.30 mg/dL High 0.20-1.00 [facility] Bilirubin.direct [Mass/Vol]O rdered By: Maria Guadalupe Shore on 08-30-2024 Bilirubin direct 0.83 mg/dL High 0.00-0.30 [facility] Ferritin measurementOrdered By: Maria Guadalupe Shore on 08-30-2024 Ferritin [Mass/Vol] 85 ng/mL [facility] Ferritin measurement 85 ng/mL [facility] HbA1c (Bld) [Mass fraction]O rdered By: Maria Guadalupe Shore on 08-30-2024 Hemoglobin A1c percentage 7.9 % High 3.8-5.6 [facility] Hemoglobin A1c percentageOrd ered By: Maria Guadalupe Shore on 08-30-2024 HbA1c (Bld) [Mass fraction] 7.9 % High 3.8-5.6 [facility] Comment on above: Normal < 5.7 % Predi abetic 5.7 - 6.4 % Diabetic >or= 6.5 % Please note range changes. Iron (Unsp spec) [Mass/Mass] Ordered By: Maria Guadalupe Shore on 08-30-2024 Iron [Mass/Vol] 62 ug/dL Low 65-175 [facility] Iron measurement (mass/mass) 62 ug/dL Low 65-175 [facility] Iron measurement (mass/mass) Ordered By: Maria Guadalupe Shore on 08-30-2024 Iron (Unsp spec) [Mass/Mass] 62 ug/dL Low 65-175 [facility] Iron saturation [Mass fracti on]Ordered By: Maria Guadalupe Shore on 08-30-2024 Iron Saturation 33.9 % 15.0-55.0 [facility] Serum or plasma iron saturation measurement (mass fraction) 33.9 % 15.0-55.0 [facility] Laboratory - Chemistry and C hemistry - challengeOrdered By: Maria Guadalupe Shore on 08-30-2024 AST [Catalytic activity/Vol] 22 U/L - [facility] No Panel InformationOrdered By: Maria Guadalupe Shore on 08-30-2024 22 U/L -37 [facility] Serum globulin measurementOr dered By: Maria Guadalupe Shore on 08-30-2024 Globulin (S) [Mass/Vol] 3.4 g/dL 2.2-4.2 [facility] Serum globulin measurement 3.4 g/dL 2.2-4.2 [facility] Serum or plasma alanine thomas otransferase (ALT) measurementOrdered By: Maria Guadalupe Shore on 08-30-2024 ALT [Catalytic activity/Vol] 19 U/L 16-61 [facility] Serum or plasma albumin roosevelt urement (mass/volume)Ordered By: Maria Guadalupe Shore on 08-30-2024 Albumin [Mass/Vol] 1.9 g/dL Low 3.2-5.0 [facility] Serum or plasma alkaline kendrick sphatase measurementOrdered By: Maria Guadalupe Shore on 08-30-2024 ALP [Catalytic activity/Vol] 143 U/L High 45-117 [facility] Serum or plasma iron saturat ion measurement (mass fraction)Ordered By: Maria Guadalupe Shore on 08-30-2024 Iron saturation [Mass fraction] 33.9 % 15.0-55.0 [facility] TIBCOrdered By: Maria Guadalupe Shore on 08-30-2024 Total Iron Binding Capacity 183 ug/dL Low 250-450 [facility] TIBC 183 ug/dL Low 250-450 [facility] Total proteinOrdered By: Aut umney Shore on 08-30-2024 Protein [Mass/Vol] 5.3 g/dL Low 6.4-8.2 [facility] Total protein 5.3 g/dL Low 6.4-8.2 [facility] Venous blood ammonia measure mentOrdered By: Maria Guadalupe Shore on 08-30-2024 Ammonia (P) [Moles/Vol] 64.0 umol/L High 11 [facility] Venous blood ammonia measurement 64.0 umol/L High [facility] Activated partial thrombopla stin time (aPTT) in platelet poor plasma by coagulation aOrdered By: Luis Carlos Anderson on 08-29-2024 aPTT Coag (PPP) [Time] 40.9 s High 24.1-36.2 [facility] Albumin to globulin ratioOrd ered By: Luis Carlos Anderson on 08-29-2024 Albumin/Globulin [Mass ratio] 0.4 {ratio} Low 0.9-2.4 [facility] Albumin to globulin ratio 0.4 RATIO Low 0.9-2.4 [facility] Bacteria LM.HPF (Urine sed) [#/Area]Ordered By: Luis Carlos Anderson on 08-29-2024 Urine Bacteria RARE /hpf None Seen [facility] Urine sediment bacteria count by microscopy (number/high power field) RARE /hpf None Seen [facility] Bilirubin Test strip Ql (U)O rdered By: Luis Carlos Anderson on 08-29-2024 Bilirubin Ql (U) 1 mg/dL High Negative [facility] Comment on above: COLOR OF URINE MAY A FFECT DIPSTICK RESULTS. Clarity (U)Ordered By: Juan Alberto Anderson on 08-29-2024 Urine clarity Clear Clear [facility] Color (U)Ordered By: Luis Carlos Anderson on 08-29-2024 Urine color determination Yellow Yellow [facility] Creatinine (U) [Mass/Vol]Ord ered By: Maria Guadalupe White on 08-29-2024 Urine creatinine measurement (mass/volume) 173.00 mg/dL NO RANGE EST. [facility] Epithelial cells.squamous LM Ql (Urine sed)Ordered By: Luis Carlos Anderson on 08-29-2024 Epithelial cells.squamous LM.HPF (Urine sed) [#/Area] 0 /[HPF] 0-5 [facility] Squamous epithelial cells detection in urine sediment by light microscopy 0 SEEN /hpf 0-5 [facility] Glucose Ql (U)Ordered By: Yaya Anderson on 08-29-2024 Glucose (U) [Mass/Vol] 50 mg/dL High Normal [facility] Urine glucose detection 50 mg/dl High Normal [facility] International normalized rat io (INR) calculationOrdered By: Luis Carlos Anderson on 08-29-2024 INR Coag (Bld) [Relative time] 1.7 {INR} [facility] International normalized ratio (INR) calculation 1.7 [facility] Ketones Test strip Ql (U)Ord ered By: Luis Carlos Anderson on 08-29-2024 Ketones Ql (U) Negative Negative [facility] Leukocyte esterase Test stri p Ql (U)Ordered By: Luis Carlos Anderson on 08-29-2024 Urine leukocyte esterase detection by dipstick 500 /ul High Negative [facility] Lipase measurementOrdered By : Luis Carlos Anderson on 08-29-2024 Lipase [Catalytic activity/Vol] 26 U/L 13-75 [facility] Comment on above: Please note:LIPASE r evised reference range effective 22. New Lipase methodology. Expected to produce lower values than the previous assay method. NEW Reference Range: 13 - 75 U/L Lipase measurement 26 U/L 13-75 [facility] Magnesium measurementOrdered By: Maria Guadalupe Shore on 08-29-2024 Magnesium [Mass/Vol] 2.7 mg/dL High 1.6-2.6 [facility] Magnesium measurement 2.7 mg/dL High 1.6-2.6 [facility] Microscopic analysis of urin e for red blood cells (RBC)Ordered By: Luis Carlos Anderson on 08-29-2024 Urine RBC 5-10 SEEN /hpf 0-5 [facility] Microscopic analysis of urine for red blood cells (RBC) 5-10 SEEN /hpf 0-5 [facility] Mucus LM Ql (Urine sed)Order ed By: Luis Carlos Anderson on 08-29-2024 Mucus Ql (Urine sed) 1+ /hpf [facility] Mucus detection in urine sediment by light microscopy 1+ /hpf [facility] Nitrite Test strip Ql (U)Ord ered By: Luis Carlos Anderson on 08-29-2024 Nitrite Ql (U) Negative Negative [facility] Phosphorus measurementOrdere d By: Maria Guadalupe Shore on 08-29-2024 Phosphorus Level 4.9 mg/dL 2.5-4.9 [facility] Phosphorus measurement 4.9 mg/dL 2.5-4.9 [facility] Protein Test strip Ql (U)Ord ered By: Luis Carlos Anderson on 08-29-2024 Protein Ql (U) 30 mg/dl High Negative [facility] Urine protein assay by test strip, semi-quantitative 30 mg/dl High Negative [facility] Prothrombin timeOrdered By: Luis Carlos Anderson on 08-29-2024 PT Coag (PPP) [Time] 20.0 s High 11.7-14.9 [facility] Prothrombin time 20.0 SECONDS High 11.7-14.9 [facility] Sodium urOrdered By: Maria Guadalupe Shore on 08-29-2024 Sodium (U) [Moles/Vol] 30 mmol/L Not Establ[facility] [Moles/Vol] 30 mmol/L [facility] Establ[facility]/L Not Establ. [facility] Specific gravity (U) [Rel de nsity]Ordered By: Luis Carlos Anderson on 08-29-2024 Urine specific gravity measurement 1.015 1.002-1.030 [facility] Squamous epithelial cells de tection in urine sediment by light microscopyOrdered By: Luis Carlos Anderson on 08-29-2024 Epithelial cells.squamous LM Ql (Urine sed) 0 SEEN /hpf 0-5 [facility] Urine blood detectionOrdered By: Luis Carlos Anderson on 08-29-2024 Urine Occult Blood 150 /ul High Negative [facility] Urine blood detection 150 /ul High Negative [facility] Urine clarityOrdered By: Joann Anderson on 08-29-2024 Clarity (U) Clear Clear [facility] Urine color determinationOrd ered By: Luis Carlos Anderson on 08-29-2024 Color (U) Yellow Yellow [facility] Urine creatinine measurement (mass/volume)Ordered By: Maria Guadalupe Shore on 08-29-2024 Creatinine (U) [Mass/Vol] 173.00 mg/dL NO RANGE EST. [facility] Urine cultureOrdered By: Joann Anderson on 08-29-2024 Bacteria identified Cx Nom (U) Culture exhibits no growth. [facility] Urine culture Culture exhibits no growth. [facility] Urine glucose detectionOrder ed By: Luis Carlos Anderson on 08-29-2024 Glucose Ql (U) 50 mg/dl High Normal [facility] Urine ketones detection by t est stripOrdered By: Luis Carlos Anderson on 08-29-2024 Urine ketones detection by test strip Negative Negative [facility] Urine leukocyte esterase det ection by dipstickOrdered By: Luis Carlos Anderson on 08-29-2024 Leukocyte esterase Test strip Ql (U) 500 /ul High Negative [facility] Urine pHOrdered By: Luis Carlos hammond on 08-29-2024 pH (U) 6.0 [pH] 5.0 - 8.0 [facility] Urine sediment bacteria coun t by microscopy (number/high power field)Ordered By: Luis Carlos Anderson on 08-29-2024 Bacteria LM.HPF (Urine sed) [#/Area] RARE /hpf None Seen [facility] Urine specific gravity measu rementOrdered By: Luis Carlos Anderson on 08-29-2024 Specific gravity (U) [Rel density] 1.015 1.002-1.030 [facility] Urine total bilirubin detect ion by test stripOrdered By: Luis Carlos Anderson on 08-29-2024 Urine total bilirubin detection by test strip 1 mg/dL High Normal [facility] Urine urobilinogen measureme ntOrdered By: Luis Carlos Anderson on 08-29-2024 Urobilinogen Ql (U) 1 mg/dl High Normal [facility] Urobilinogen Ql (U)Ordered B y: Luis Carlos Anderson on 08-29-2024 Urobilinogen (U) [Mass/Vol] 1 mg/dL High Normal [facility] White blood cell countOrdere d By: Luis Carlos Anderson on 08-29-2024 Urine WBC 10-25 SEEN /hpf 0-5 [facility] White blood cell count 10-25 SEEN /hpf 0-5 [facility] White blood cell count 10-25 SEEN /hpf 0-5 [facility] aPTT Coag (PPP) [Time]Ordere d By: Luis Carlos Anderson on 08-29-2024 aPTT Coag (Bld) [Time] 40.9 s High 24.1-36.2 [facility] Activated partial thromboplastin time (aPTT) in platelet poor plasma by coagulation a 40.9 Seconds High 24.1-36.2 [facility] pH (U)Ordered By: Ashu on 08-29-2024 Urine pH 6.0 5.0 - 8.0 [facility] Vital Signs Date Time Vital Sign Value Performing Clinician Facility 03-11-2025 22:11-0400 Body temperature 98.1 [degF] No Primary Care Physician [facility] 03-11-2025 22:11-0400 Diastolic blood pressure 65 mm[Hg] No Primary Care Physician [facility] 03-11-2025 22:11-0400 Heart rate 70 /min No Primary Care Physician [facility] 03-11-2025 22:11-0400 Respiratory rate 16 /min No Primary Care Physician [facility] 03-11-2025 22:11-0400 SaO2% (BldA) [Mass fraction] 100 % No Primary Care Physician [facility] 03-11-2025 22:11-0400 Systolic blood pressure 98 mm[Hg] No Primary Care Physician [facility] 03-11-2025 17:10-0400 Body height 175.26 cm No Primary Care Physician [facility] 03-11-2025 17:10-0400 Body mass index (BMI) [Ratio] 29.8 kg/m2 No Primary Care Physician [facility] 03-11-2025 17:10-0400 Body weight 91.62 kg No Primary Care Physician [facility] 03-10-2025 14:16-0400 Body mass index (BMI) [Ratio] 29 kg/m2 No Primary Care Physician [facility] 03-10-2025 14:16-0400 Body weight 89.35 kg No Primary Care Physician [facility] 03-10-2025 14:16-0400 Diastolic blood pressure 59 mm[Hg] No Primary Care Physician [facility] 03-10-2025 14:16-0400 Heart rate 77 /min No Primary Care Physician [facility] 03-10-2025 14:16-0400 Respiratory rate 17 /min No Primary Care Physician [facility] 03-10-2025 14:16-0400 SaO2% (BldA) [Mass fraction] 99 % No Primary Care Physician [facility] 03-10-2025 14:16-0400 Systolic blood pressure 95 mm[Hg] No Primary Care Physician [facility] 03-04-2025 12:36-0400 Diastolic blood pressure 64 mm[Hg] No Primary Care Physician [facility] 03-04-2025 12:36-0400 Heart rate 68 /min No Primary Care Physician [facility] 03-04-2025 12:36-0400 Respiratory rate 16 /min No Primary Care Physician [facility] 03-04-2025 12:36-0400 Systolic blood pressure 103 mm[Hg] No Primary Care Physician [facility] 02-27-2025 14:46-0400 Body temperature 98.4 [degF] No Primary Care Physician [facility] 02-27-2025 14:46-0400 Diastolic blood pressure 67 mm[Hg] No Primary Care Physician [facility] 02-27-2025 14:46-0400 Heart rate 87 /min No Primary Care Physician [facility] 02-27-2025 14:46-0400 Respiratory rate 16 /min No Primary Care Physician [facility] 02-27-2025 14:46-0400 SaO2% (BldA) [Mass fraction] 96 % No Primary Care Physician [facility] 02-27-2025 14:46-0400 Systolic blood pressure 119 mm[Hg] No Primary Care Physician [facility] 02-26-2025 15:23-0400 Body weight 90.26 kg No Primary Care Physician [facility] 02-25-2025 11:36-0400 Body mass index (BMI) [Ratio] 31.9 kg/m2 No Primary Care Physician [facility] 02-17-2025 17:05-0400 Body temperature 98.2 [degF] No Primary Care Physician [facility] 02-17-2025 17:05-0400 Diastolic blood pressure 71 mm[Hg] No Primary Care Physician [facility] 02-17-2025 17:05-0400 Heart rate 74 /min No Primary Care Physician [facility] 02-17-2025 17:05-0400 Respiratory rate 16 /min No Primary Care Physician [facility] 02-17-2025 17:05-0400 SaO2% (BldA) [Mass fraction] 98 % No Primary Care Physician [facility] 02-17-2025 17:05-0400 Systolic blood pressure 123 mm[Hg] No Primary Care Physician [facility] 02-16-2025 19:56-0400 Body height 175.26 cm No Primary Care Physician [facility] 02-16-2025 19:56-0400 Body mass index (BMI) [Ratio] 31.1 kg/m2 No Primary Care Physician [facility] 02-16-2025 19:56-0400 Body weight 95.6 kg No Primary Care Physician [facility] 02-16-2025 19:34-0400 Body temperature 97.8 [degF] No Primary Care Physician [facility] 02-16-2025 19:34-0400 Diastolic blood pressure 61 mm[Hg] No Primary Care Physician [facility] 02-16-2025 19:34-0400 Heart rate 76 /min No Primary Care Physician [facility] 02-16-2025 19:34-0400 Respiratory rate 18 /min No Primary Care Physician [facility] 02-16-2025 19:34-0400 SaO2% (BldA) [Mass fraction] 96 % No Primary Care Physician [facility] 02-16-2025 19:34-0400 Systolic blood pressure 102 mm[Hg] No Primary Care Physician [facility] 02-16-2025 17:20-0400 Body height 175.26 cm No Primary Care Physician [facility] 02-13-2025 21:17-0400 Body temperature 98.8 [degF] No Primary Care Physician [facility] 02-13-2025 21:17-0400 Diastolic blood pressure 75 mm[Hg] No Primary Care Physician [facility] 02-13-2025 21:17-0400 Heart rate 59 /min No Primary Care Physician [facility] 02-13-2025 21:17-0400 Respiratory rate 16 /min No Primary Care Physician [facility] 02-13-2025 21:17-0400 SaO2% (BldA) [Mass fraction] 100 % No Primary Care Physician [facility] 02-13-2025 21:17-0400 Systolic blood pressure 97 mm[Hg] No Primary Care Physician [facility] 02-13-2025 16:30-0400 Body height 175.26 cm No Primary Care Physician [facility] 02-13-2025 16:30-0400 Body mass index (BMI) [Ratio] 33 kg/m2 No Primary Care Physician [facility] 02-13-2025 16:30-0400 Body weight 101.5 kg No Primary Care Physician [facility] 02-11-2025 12:35-0400 Diastolic blood pressure 55 mm[Hg] No Primary Care Physician [facility] 02-11-2025 12:35-0400 Heart rate 63 /min No Primary Care Physician [facility] 02-11-2025 12:35-0400 Respiratory rate 18 /min No Primary Care Physician [facility] 02-11-2025 12:35-0400 Systolic blood pressure 85 mm[Hg] No Primary Care Physician [facility] 02-11-2025 12:33-0400 Body temperature 97.3 [degF] No Primary Care Physician [facility] 02-08-2025 01:26-0400 Body temperature 97.6 [degF] No Primary Care Physician [facility] 02-08-2025 01:26-0400 Diastolic blood pressure 63 mm[Hg] No Primary Care Physician [facility] 02-08-2025 01:26-0400 Heart rate 62 /min No Primary Care Physician [facility] 02-08-2025 01:26-0400 Respiratory rate 18 /min No Primary Care Physician [facility] 02-08-2025 01:26-0400 SaO2% (BldA) [Mass fraction] 100 % No Primary Care Physician [facility] 02-08-2025 01:26-0400 Systolic blood pressure 97 mm[Hg] No Primary Care Physician [facility] 02-07-2025 22:20-0400 Body mass index (BMI) [Ratio] 34.8 kg/m2 No Primary Care Physician [facility] 02-07-2025 22:20-0400 Body weight 107.1 kg No Primary Care Physician [facility] 02-07-2025 19:24-0400 Body height 175.26 cm No Primary Care Physician [facility] 01-31-2025 18:35-0400 Body temperature 98.1 [degF] No Primary Care Physician [facility] 01-31-2025 18:35-0400 Diastolic blood pressure 86 mm[Hg] No Primary Care Physician [facility] 01-31-2025 18:35-0400 Heart rate 100 /min No Primary Care Physician [facility] 01-31-2025 18:35-0400 Respiratory rate 16 /min No Primary Care Physician [facility] 01-31-2025 18:35-0400 SaO2% (BldA) [Mass fraction] 100 % No Primary Care Physician [facility] 01-31-2025 18:35-0400 Systolic blood pressure 127 mm[Hg] No Primary Care Physician [facility] 01-31-2025 09:49-0400 Body height 182.88 cm No Primary Care Physician [facility] 01-31-2025 09:49-0400 Body weight 110.3 kg No Primary Care Physician [facility] 01-28-2025 09:46-0400 Body mass index (BMI) [Ratio] 33 kg/m2 No Primary Care Physician [facility] 01-28-2025 09:00-0400 Body temperature 98 [degF] No Primary Care Physician [facility] 01-28-2025 09:00-0400 Diastolic blood pressure 67 mm[Hg] No Primary Care Physician [facility] 01-28-2025 09:00-0400 Heart rate 106 /min No Primary Care Physician [facility] 01-28-2025 09:00-0400 Respiratory rate 15 /min No Primary Care Physician [facility] 01-28-2025 09:00-0400 SaO2% (BldA) [Mass fraction] 100 % No Primary Care Physician [facility] 01-28-2025 09:00-0400 Systolic blood pressure 125 mm[Hg] No Primary Care Physician [facility] 01-28-2025 02:56-0400 Body height 187.96 cm No Primary Care Physician [facility] 01-28-2025 02:56-0400 Body mass index (BMI) [Ratio] 31.7 kg/m2 No Primary Care Physician [facility] 01-28-2025 02:56-0400 Body weight 112.2 kg No Primary Care Physician [facility] 01-21-2025 13:00-0400 Body temperature 97.7 [degF] No Primary Care Physician [facility] 01-21-2025 13:00-0400 Diastolic blood pressure 60 mm[Hg] No Primary Care Physician [facility] 01-21-2025 13:00-0400 Heart rate 91 /min No Primary Care Physician [facility] 01-21-2025 13:00-0400 Respiratory rate 18 /min No Primary Care Physician [facility] 01-21-2025 13:00-0400 SaO2% (BldA) [Mass fraction] 97 % No Primary Care Physician [facility] 01-21-2025 13:00-0400 Systolic blood pressure 100 mm[Hg] No Primary Care Physician [facility] 01-21-2025 05:13-0400 Body mass index (BMI) [Ratio] 35.8 kg/m2 No Primary Care Physician [facility] 01-21-2025 05:13-0400 Body weight 110.1 kg No Primary Care Physician [facility] 01-17-2025 14:51-0400 Body height 175.26 cm No Primary Care Physician [facility] 01-09-2025 14:01-0400 Heart rate 69 /min No Primary Care Physician [facility] 01-09-2025 14:01-0400 Respiratory rate 16 /min No Primary Care Physician [facility] 01-09-2025 14:01-0400 SaO2% (BldA) [Mass fraction] 100 % No Primary Care Physician [facility] 01-09-2025 14:00-0400 Diastolic blood pressure 59 mm[Hg] No Primary Care Physician [facility] 01-09-2025 14:00-0400 Systolic blood pressure 107 mm[Hg] No Primary Care Physician [facility] 01-09-2025 13:04-0400 Body temperature 98 [degF] No Primary Care Physician [facility] 01-09-2025 10:10-0400 Body height 175.26 cm No Primary Care Physician [facility] 01-09-2025 10:10-0400 Body mass index (BMI) [Ratio] 29.5 kg/m2 No Primary Care Physician [facility] 01-09-2025 10:10-0400 Body weight 90.6 kg No Primary Care Physician [facility] 01-05-2025 16:00-0400 Body temperature 98.1 [degF] No Primary Care Physician [facility] 01-05-2025 16:00-0400 Diastolic blood pressure 60 mm[Hg] No Primary Care Physician [facility] 01-05-2025 16:00-0400 Heart rate 73 /min No Primary Care Physician [facility] 01-05-2025 16:00-0400 Respiratory rate 16 /min No Primary Care Physician [facility] 01-05-2025 16:00-0400 SaO2% (BldA) [Mass fraction] 94 % No Primary Care Physician [facility] 01-05-2025 16:00-0400 Systolic blood pressure 103 mm[Hg] No Primary Care Physician [facility] 01-05-2025 04:44-0400 Body mass index (BMI) [Ratio] 29.9 kg/m2 No Primary Care Physician [facility] 01-05-2025 04:44-0400 Body weight 92.2 kg No Primary Care Physician [facility] 01-02-2025 10:11-0400 Body height 175.26 cm No Primary Care Physician [facility] 01-02-2025 06:34-0400 Body temperature 97.8 [degF] No Primary Care Physician [facility] 01-02-2025 06:34-0400 Diastolic blood pressure 73 mm[Hg] No Primary Care Physician [facility] 01-02-2025 06:34-0400 Heart rate 68 /min No Primary Care Physician [facility] 01-02-2025 06:34-0400 Respiratory rate 20 /min No Primary Care Physician [facility] 01-02-2025 06:34-0400 SaO2% (BldA) [Mass fraction] 100 % No Primary Care Physician [facility] 01-02-2025 06:34-0400 Systolic blood pressure 105 mm[Hg] No Primary Care Physician [facility] 01-02-2025 02:59-0400 Body height 175.26 cm No Primary Care Physician [facility] 01-02-2025 02:59-0400 Body mass index (BMI) [Ratio] 27.5 kg/m2 No Primary Care Physician [facility] 01-02-2025 02:59-0400 Body weight 84.5 kg No Primary Care Physician [facility] 12-30-2024 05:24-0400 Body temperature 97.9 [degF] No Primary Care Physician [facility] 12-30-2024 05:24-0400 Diastolic blood pressure 52 mm[Hg] No Primary Care Physician [facility] 12-30-2024 05:24-0400 Heart rate 71 /min No Primary Care Physician [facility] 12-30-2024 05:24-0400 Respiratory rate 18 /min No Primary Care Physician [facility] 12-30-2024 05:24-0400 SaO2% (BldA) [Mass fraction] 93 % No Primary Care Physician [facility] 12-30-2024 05:24-0400 Systolic blood pressure 93 mm[Hg] No Primary Care Physician [facility] 12-30-2024 01:07-0400 Body height 175.26 cm No Primary Care Physician [facility] 12-30-2024 01:07-0400 Body mass index (BMI) [Ratio] 28.4 kg/m2 No Primary Care Physician [facility] 12-30-2024 01:07-0400 Body weight 87.3 kg No Primary Care Physician [facility] 12-26-2024 14:27-0400 Body temperature 97 [degF] No Primary Care Physician [facility] 12-26-2024 14:27-0400 Diastolic blood pressure 58 mm[Hg] No Primary Care Physician [facility] 12-26-2024 14:27-0400 Heart rate 64 /min No Primary Care Physician [facility] 12-26-2024 14:27-0400 Respiratory rate 16 /min No Primary Care Physician [facility] 12-26-2024 14:27-0400 SaO2% (BldA) [Mass fraction] 97 % No Primary Care Physician [facility] 12-26-2024 14:27-0400 Systolic blood pressure 90 mm[Hg] No Primary Care Physician [facility] 12-26-2024 10:00-0400 Body height 175.26 cm No Primary Care Physician [facility] 12-26-2024 10:00-0400 Body mass index (BMI) [Ratio] 29.7 kg/m2 No Primary Care Physician [facility] 12-26-2024 10:00-0400 Body weight 91.4 kg No Primary Care Physician [facility] 12-02-2024 12:13-0400 Body temperature 98.7 [degF] No Primary Care Physician [facility] 12-02-2024 12:13-0400 Diastolic blood pressure 68 mm[Hg] No Primary Care Physician [facility] 12-02-2024 12:13-0400 Heart rate 86 /min No Primary Care Physician [facility] 12-02-2024 12:13-0400 Respiratory rate 18 /min No Primary Care Physician [facility] 12-02-2024 12:13-0400 SaO2% (BldA) [Mass fraction] 97 % No Primary Care Physician [facility] 12-02-2024 12:13-0400 Systolic blood pressure 117 mm[Hg] No Primary Care Physician [facility] 12-02-2024 02:57-0400 Body mass index (BMI) [Ratio] 33 kg/m2 No Primary Care Physician [facility] 12-02-2024 02:57-0400 Body weight 101.6 kg No Primary Care Physician [facility] 11-29-2024 09:53-0400 Body height 175.26 cm No Primary Care Physician [facility] 11-25-2024 18:31-0400 Body temperature 98.2 [degF] No Primary Care Physician [facility] 11-25-2024 18:31-0400 Diastolic blood pressure 80 mm[Hg] No Primary Care Physician [facility] 11-25-2024 18:31-0400 Heart rate 97 /min No Primary Care Physician [facility] 11-25-2024 18:31-0400 Respiratory rate 18 /min No Primary Care Physician [facility] 11-25-2024 18:31-0400 SaO2% (BldA) [Mass fraction] 98 % No Primary Care Physician [facility] 11-25-2024 18:31-0400 Systolic blood pressure 122 mm[Hg] No Primary Care Physician [facility] 11-24-2024 15:17-0400 Body weight 102.7 kg No Primary Care Physician [facility] 11-21-2024 05:32-0400 Body mass index (BMI) [Ratio] 33.4 kg/m2 No Primary Care Physician [facility] 11-21-2024 05:00-0400 Heart rate 77 /min No Primary Care Physician [facility] 11-21-2024 04:51-0400 Body temperature 98.2 [degF] No Primary Care Physician [facility] 11-21-2024 04:51-0400 Diastolic blood pressure 57 mm[Hg] No Primary Care Physician [facility] 11-21-2024 04:51-0400 Respiratory rate 16 /min No Primary Care Physician [facility] 11-21-2024 04:51-0400 SaO2% (BldA) [Mass fraction] 97 % No Primary Care Physician [facility] 11-21-2024 04:51-0400 Systolic blood pressure 127 mm[Hg] No Primary Care Physician [facility] 11-21-2024 01:32-0400 Body height 175.26 cm No Primary Care Physician [facility] 11-21-2024 01:32-0400 Body mass index (BMI) [Ratio] 34.3 kg/m2 No Primary Care Physician [facility] 11-21-2024 01:32-0400 Body weight 105.4 kg No Primary Care Physician [facility] 11-12-2024 18:03-0400 SaO2% (BldA) [Mass fraction] 99 % KATHIE POWERS [facility] Comment on above: Order Comment: Specimen Type: ARTERIAL B LOOD SPECIMENOrdering Facility: [facility] Address: [address] [place] [address] Performed By: #### A LLBG ####[facility] LABCLIA [id number] [place] [address] [place] 11-10-2024 23:40-0400 Body temperature 97.8 [degF] No Primary Care Physician [facility] 11-10-2024 23:40-0400 Diastolic blood pressure 70 mm[Hg] No Primary Care Physician [facility] 11-10-2024 23:40-0400 Heart rate 110 /min No Primary Care Physician [facility] 11-10-2024 23:40-0400 Respiratory rate 18 /min No Primary Care Physician [facility] 11-10-2024 23:40-0400 SaO2% (BldA) [Mass fraction] 97 % No Primary Care Physician [facility] 11-10-2024 23:40-0400 Systolic blood pressure 116 mm[Hg] No Primary Care Physician [facility] 11-10-2024 04:54-0400 Body mass index (BMI) [Ratio] 36.7 kg/m2 No Primary Care Physician [facility] 11-10-2024 04:54-0400 Body weight 112.8 kg No Primary Care Physician [facility] 11-09-2024 14:30-0400 Body height 175.26 cm No Primary Care Physician [facility] 10-29-2024 01:23-0400 Body temperature 97.4 [degF] No Primary Care Physician [facility] 10-29-2024 01:23-0400 Diastolic blood pressure 54 mm[Hg] No Primary Care Physician [facility] 10-29-2024 01:23-0400 Heart rate 77 /min No Primary Care Physician [facility] 10-29-2024 01:23-0400 Respiratory rate 14 /min No Primary Care Physician [facility] 10-29-2024 01:23-0400 SaO2% (BldA) [Mass fraction] 97 % No Primary Care Physician [facility] 10-29-2024 01:23-0400 Systolic blood pressure 97 mm[Hg] No Primary Care Physician [facility] 10-28-2024 21:43-0400 Body mass index (BMI) [Ratio] 30.4 kg/m2 No Primary Care Physician [facility] 10-28-2024 21:43-0400 Body weight 93.1 kg No Primary Care Physician [facility] 10-28-2024 17:13-0400 Body height 175.01 cm No Primary Care Physician [facility] 10-04-2024 21:45-0500 Diastolic blood pressure 89 mm[Hg] Maurice wen MD Work Phone: [facility] 10-04-2024 21:45-0500 Heart rate 94 /min Maurice Rincon MD Work Phone: [facility] 10-04-2024 21:45-0500 Respiratory rate 18 /min Maurice Rincon MD Work Phone: [facility] 10-04-2024 21:45-0500 SaO2% (BldA) [Mass fraction] 100 % Maurice Rincon MD Work Phone: [facility] 10-04-2024 21:45-0500 Systolic blood pressure 152 mm[Hg] Maurice parada MD Work Phone: [facility] 10-04-2024 12:03-0500 Body temperature 97.59 [degF] Maurice Rincon MD Work Phone: [facility] 10-04-2024 12:03-0500 Body weight 117.48 kg Maurice Rincon MD Work Phone: [facility] 09-29-2024 10:21-0500 Body temperature 97.3 [degF] No Primary Care Physician [facility] 09-29-2024 10:21-0500 Diastolic blood pressure 74 mm[Hg] No Primary Care Physician [facility] 09-29-2024 10:21-0500 Heart rate 81 /min No Primary Care Physician [facility] 09-29-2024 10:21-0500 Respiratory rate 18 /min No Primary Care Physician [facility] 09-29-2024 10:21-0500 Systolic blood pressure 138 mm[Hg] No Primary Care Physician [facility] 09-15-2024 03:49-0500 Body temperature 97.8 [degF] No Primary Care Physician [facility] 09-15-2024 03:49-0500 Diastolic blood pressure 70 mm[Hg] No Primary Care Physician [facility] 09-15-2024 03:49-0500 Heart rate 80 /min No Primary Care Physician [facility] 09-15-2024 03:49-0500 Respiratory rate 17 /min No Primary Care Physician [facility] 09-15-2024 03:49-0500 SaO2% (BldA) [Mass fraction] 96 % No Primary Care Physician [facility] 09-15-2024 03:49-0500 Systolic blood pressure 142 mm[Hg] No Primary Care Physician [facility] 09-14-2024 04:07-0500 Body mass index (BMI) [Ratio] 36.7 kg/m2 No Primary Care Physician [facility] 09-14-2024 04:07-0500 Body weight 112.8 kg No Primary Care Physician [facility] 09-10-2024 14:03-0500 Body height 175.26 cm No Primary Care Physician [facility] 09-07-2024 01:24-0500 Inhaled oxygen concentration 21 % No Primary Care Physician [facility] 09-06-2024 05:00-0500 Inhaled oxygen flow rate 8 L/min No Primary Care Physician [facility] 09-02-2024 15:36-0500 Body weight 104 kg No Primary Care Physician [facility] 09-02-2024 14:54-0500 Body temperature 98.1 [degF] No Primary Care Physician [facility] 09-02-2024 14:54-0500 Diastolic blood pressure 62 mm[Hg] No Primary Care Physician [facility] 09-02-2024 14:54-0500 Heart rate 60 /min No Primary Care Physician [facility] 09-02-2024 14:54-0500 Respiratory rate 18 /min No Primary Care Physician [facility] 09-02-2024 14:54-0500 SaO2% (BldA) [Mass fraction] 99 % No Primary Care Physician [facility] 09-02-2024 14:54-0500 Systolic blood pressure 118 mm[Hg] No Primary Care Physician [facility] 09-02-2024 03:57-0500 Body mass index (BMI) [Ratio] 33.8 kg/m2 No Primary Care Physician [facility] 08-21-2024 16:33-0500 Body temperature 98.5 [degF] No Primary Care Physician [facility] 08-21-2024 16:33-0500 Diastolic blood pressure 78 mm[Hg] No Primary Care Physician [facility] 08-21-2024 16:33-0500 Heart rate 61 /min No Primary Care Physician [facility] 08-21-2024 16:33-0500 Respiratory rate 12 /min No Primary Care Physician [facility] 08-21-2024 16:33-0500 SaO2% (BldA) [Mass fraction] 97 % No Primary Care Physician [facility] 08-21-2024 16:33-0500 Systolic blood pressure 114 mm[Hg] No Primary Care Physician [facility] 08-21-2024 13:52-0500 Body mass index (BMI) [Ratio] 33 kg/m2 No Primary Care Physician [facility] 08-21-2024 13:52-0500 Body weight 101.5 kg No Primary Care Physician [facility] Encounters Encounter Date Encounter Type Care Provider Facility Start: 03-30-2025 End: 03-30-2025 ambulatory Roby Frankquique Facility:[facility] Start: 03-25-2025 ambulatory [facility] Facility :[facility] Start: 03-16-2025 ambulatory [facility] Facility :[facility] Start: 03-11-2025 End: 03-11-2025 No Primary Care Physician -Emergency Department Work Phone: Start: 03-11-2025 End: 03-11-2025 Emergency department patient visit No Primary Care Physician -Emergency Department Start: 03-10-2025 End: 03-10-2025 Dr. Roby Balderas MD -[facility] Work Phone: Start: 03-10-2025 End: 03-10-2025 ambulatory [place] [facility] Facility:[facility] Start: 03-04-2025 No Primary Car e Physician -Ultrasound [facility] Work Phone: Start: 03-04-2025 End: 03-04-2025 ambulatory [facility] Facility:[facility] Start: 02-27-2025 Dr. Rick gutierrez DO -[facility] Work Phone: Start: 02-26-2025 Dr. Rick gutierrez DO -[facility] Work Phone: Start: 02-25-2025 Niranjan Li DO -[facility] Start: 02-25-2025 End: 02-27-2025 ambulatory Kathie Powers Facility:[facility] Start: 02-25-2025 End: 02-27-2025 Dr. Rick Carlin DO -Progressive Care Unit Work Phone: Start: 02-24-2025 End: 02-25-2025 [facility] Work Phone: Start: 02-24-2025 End: 02-25-2025 ambulatory [facility] Facility:[facility] Start: 02-17-2025 Niranjanalvarado Li DO -[facility] Start: 02-17-2025 Dr. Anurag Irene MD -[facility] Work Phone: Start: 02-16-2025 End: 02-17-2025 ambulatory Jae Ash Facility:[facility] Start: 02-16-2025 Evaluation and manag ement of inpatient No Primary Care Physician -Medical Surgical 3 Start: 02-16-2025 End: 02-17-2025 Dr. Jae Ash DO -[facility] 3 Work Phone: Start: 02-16-2025 End: 02-16-2025 Dr. Jerald Sherwood MD -Laboratory [facility] Start: 02-16-2025 End: 02-16-2025 ambulatory Jerald Sherwood Facility:[facility] Start: 02-14-2025 ambulatory NONE PHYSICIAN Facility :[facility] Start: 02-13-2025 End: 02-13-2025 No Primary Care Physician -Emergency Department Work Phone: Start: 02-13-2025 End: 02-13-2025 Emergency department patient visit No Primary Care Physician -Emergency Department Start: 02-11-2025 End: 02-11-2025 ambulatory No Primary Care Physician -Ultrasound [facility] Start: 02-11-2025 End: 02-11-2025 Mina And DO -Ultrasound [facility] Work Phone: Start: 02-11-2025 End: 02-11-2025 [facility] Start: 02-07-2025 End: 02-08-2025 No Primary Care [...] management of inpatient No Primary Care Physician [facility] Work Phone: Start: 01-28-2025 End: 01-31-2025 Dr. Boone Izquierdo DO [facility] Work Phone: Start: 01-21-2025 Dr. Anurag Irene MD [facility] Work Phone: Start: 01-20-2025 Dr. Anurag Irene MD [facility] Work Phone: Start: 01-19-2025 Dr. Anurag Irene MD [facility] Work Phone: Start: 01-18-2025 Dr. Anurag Irene MD [facility] Work Phone: Start: 01-17-2025 Dr. Anurag Irene MD [facility] Work Phone: Start: 01-16-2025 Dr. Cielo Tovar MD [facility] Work Phone: Start: 01-15-2025 Dr. Cielo Tovar MD [facility] Work Phone: Start: 01-14-2025 Dr. Cielo Tovar MD [facility] Work Phone: Start: 01-13-2025 Dr. Cielo Tovar MD [facility] Work Phone: Start: 01-12-2025 Dr. Cielo Tovar MD [facility] Work Phone: Start: 01-11-2025 Dr. Jefferson Malave MD - [facility] Start: 01-11-2025 Dr. Cielo Tovar MD [facility] Work Phone: Start: 01-11-2025 Dr. Bola Meraz DO [facility] Start: 01-10-2025 Dr. Cielo Tovar MD [facility] Work Phone: Start: 01-09-2025 [facility] Start: 01-09-2025 End: 01-21-2025 Evaluation and management of inpatient No Primary Care Physician [facility] Work Phone: Start: 01-09-2025 End: [...] management of inpatient No Primary Care Physician [facility] Work Phone: Start: 01-02-2025 End: 01-05-2025 Dr. Buster Fuchs MD -Progressive Care Unit Work Phone: Start: 12-30-2024 End: 12-30-2024 No Primary Care Physician -Emergency Department Work Phone: Start: 12-30-2024 End: 12-30-2024 Emergency department patient visit No Primary Care Physician [facility] Work Phone: Start: 12-26-2024 End: 12-26-2024 No Primary Care Physician -Emergency Department Work Phone: Start: 12-26-2024 End: 12-26-2024 Emergency department patient visit No Primary Care Physician [facility] Work Phone: Start: 12-15-2024 End: 12-15-2024 ambulatory No Primary Care Physician [facility] Work Phone: Start: 12-15-2024 End: 12-15-2024 Josy Elias NP-C -Ultrasound [facility] Work Phone: Start: 12-15-2024 End: 12-15-2024 ambulatory [facility] Facility:[facility] Start: 12-07-2024 End: 12-10-2024 ambulatory Eva Pichardo MD Work Phone: Urology Start: 12-07-2024 End: 12-07-2024 [facility] PITCH FLAKER-C -Laboratory, Amrita Donnie Start: 12-07-2024 End: 12-07-2024 ambulatory [facility] Facility:[facility] Start: 12-02-2024 Dr. Hill Acuña MD [facility] Work Phone: Start: 12-01-2024 Dr. Hill Acuña MD - [facility] Work Phone: Start: 11-30-2024 Dr. Hill Acuña MD - [facility] Work Phone: Start: 11-29-2024 Dr. Hill Acuña MD - [facility] Work Phone: Start: 11-28-2024 ambulatory Hill Acuña Facility[facility] Start: 11-28-2024 End: 12-02-2024 Evaluation and management of inpatient No Primary Care Physician Facility:[facility] Start: 11-28-2024 End: 12-02-2024 Dr. Hill Acuña MD -Progressive Care Unit Work Phone: Start: 11-25-2024 Dr. Anurag Irene MD -[facility] Work Phone: Start: 11-24-2024 Dr. Anurag Irene MD -[facility] Work Phone: Start: 11-23-2024 ambulatory Jae Ash Fac ility:[facility] Start: 11-23-2024 End: 11-25-2024 Evaluation and management of inpatient Jae Ash Facility:[facility] Start: 11-23-2024 End: 11-25-2024 Dr. Anurag Irene MD -Medical Surgical 3 Work Phone: Start: 11-22-2024 Dr. Anurag Irene MD -[facility] Work Phone: Start: 11-21-2024 ambulatory Jae Ash Fac ility:[facility] Start: 11-21-2024 observation encounter No Prima ry Care Physician [facility] Work Phone: Start: 11-21-2024 Dr. Jae Ash DO -Medical Surgical 3 Work Phone: Start: 11-18-2024 Patient encounter status Jeremi Abreu RN Work Phone: [facility] Work Phone: Start: 11-18-2024 End: 11-18-2024 Telephone encounter Jeremi Abreu RN Work Phone: Transplant Center Comment on above: Outcome Liver Transp lant Selection Committee Start: 11-15-2024 End: 11-15-2024 Evaluation and management of inpatient Izabela Estuardo Candice DDS Work Phone: Dentistry Comment on above: Liver transplant can didate (Primary Dx); Pre-operative clearance Start: 11-15-2024 End: 11-15-2024 Preoperative state Izabela Estuardo Candice DDS Work Phone: [facility] Start: 11-15-2024 End: 11-15-2024 Social Work Marah Arauz [employer] Work Phone: Transplant Center Start: 11-12-2024 End: 11-12-2024 Patient encounter status Lizett Guzman [facility] Start: 11-12-2024 End: 11-12-2024 Orders Only Liver Txp Coordinator Work Phone: Transplant Center Comment on above: 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 Kathie Powers MD -[facility] Work Phone: Start: 11-09-2024 Dr. Kathie Powers MD - [facility] Work Phone: Start: 11-08-2024 Dr. Kathie Powers MD -[facility] Work Phone: Start: 11-07-2024 Dr. Hill Acuña MD - [facility] Work Phone: Start: 11-06-2024 Dr. Hill Acuña MD - [facility] Work Phone: Start: 11-05-2024 Dr. Hill Acuña MD - [facility] Work Phone: Start: 11-04-2024 Dr. Hill Acuña MD [facility] Work Phone: Start: 11-03-2024 Dr. Hill Acuña MD [facility] Work Phone: Start: 11-02-2024 Dr. Hill Acuña MD [facility] Work Phone: Start: 11-01-2024 Dr. Hill Acuña MD [facility] Work Phone: Start: 11-01-[address] [facility] Start: 10-31-2024 Dr. Buster Fuchs MD [facility] Work Phone: Start: 10-30-[address] [facility] Start: 10-30-2024 Dr. Buster Fuchs MD [facility] Work Phone: Start: 10-29-2024 Dr. Bola Meraz DO -[facility] Start: 10-29-2024 ambulatory Hill Danielson ty:[facility] Start: 10-29-2024 End: 11-11-2024 Evaluation and management of inpatient Dr. Hill Caro DO -Intensive Care Unit Work Phone: Start: 10-29-2024 End: 11-11-2024 Dr. Kathie Powers MD -Progressive Care Unit Work Phone: Start: 10-19-2024 [facility] Facility:[facility] Start: 10-04-2024 End: 10-04-2024 Emergency department patient visit MAURICE RINCON [facility] Emergency Medicine Comment on above: Other ascites (Prima ry Dx); Abdominal pain, generalized; Other cirrhosis of liver; Peripheral edema; Coagulopathy (Multi); Hyperbilirubinemia; Cirrhosis of liver with ascites, unspecified hepatic cirrhosis type (Multi) Start: 09-29-2024 ambulatory [facility] Facility:[facility] Start: 09-29-2024 Non-patient / Non-visit Jasmine nunez PITCH FLAKER-C -[facility] Start: 09-29-2024 Jasmine Morocho PITCH FLAKER-C - [facility] Start: 09-29-2024 End: 09-29-2024 ambulatory No Primary Care Physician [facility] Work Phone: Start: 09-29-2024 End: 09-29-2024 Patient encounter procedure No Primary Care Physician -Ultrasound, [facility] Work Phone: Start: 09-29-2024 End: 09-29-2024 No Primary Care Physician -Ultrasound, [facility] Work Phone: Start: 09-29-2024 End: 09-29-2024 [facility] Facility:[facility] Start: 09-14-2024 Non-patient / Non-visit Dr. Boone James [facility] Inpatient Physicians Work Phone: Start: 09-14-2024 Dr. Boone Izquierdo [facility] Work Phone: Start: 09-13-2024 Non-patient / Non-visit Dr. Boone [facility] In[facility] Work Phone: Start: 09-13-2024 Dr. Boone Izquierdo [facility] In[facility] Work Phone: Start: 09-12-2024 Non-patient / Non-visit [facility] Noon[facility] Inpatient Physicians Work Phone: Start: 09-12-2024 Dr. Jae Ash [facility] In[facility] Phys[facility] Work Phone: Start: 09-11-2024 Non-patient / Non-visit [facility] Work Phone: Start: 09-11-2024 Dr. Jae Ash [facility] In[facility] Work Phone: Start: 09-10-2024 Non-patient / Non-visit [facility] No[facility] In[facility] Work Phone: Start: 09-10-2024 Dr. Jae Ash [facility] In[facility] Work Phone: Start: 09-09-2024 Non-patient / Non-visit [facility] No[facility] In[facility] Work Phone: Start: 09-09-2024 Dr. Jae Ash [facility] In[facility] Work Phone: Start: 09-08-2024 Non-patient / Non-[facility] Work Phone: Start: 09-08-2024 Dr. Anurag Murray [facility] In[facility] Physicians Work Phone: Start: 09-07-2024 Non-patient / Non-[facility] Work Phone: Start: 09-07-2024 Dr. Anurag Murray [facility] In[facility] Physicians Work Phone: Start: 09-06-2024 Non-patient / Non-visit [facility] Work Phone: Start: 09-06-2024 Dr. Anurag Murray [facility] In[facility] Work Phone: Start: 09-05-2024 ambulatory [facility] Facili ty:[facility] Start: 09-05-2024 End: 09-15-2024 Evaluation and management of inpatient Dr. Boone Izquierdo [facility] Care Unit Work Phone: Start: 09-05-2024 End: 09-15-2024 Dr. Boone Izquierdo [facility] Care Unit Work Phone: Start: 09-02-2024 Non-patient / Non-visit Dr. Lissette Carlin [facility] Inpatient Physicians Work Phone: Start: 09-02-2024 Dr. Rick gutierrez [facility] In[facility] Phys[facility] Work Phone: Start: 09-01-2024 Non-patient / Non-visit Niranjan Frie nd DO -[facility] Start: 09-01-2024 Niranjan Friend DO -[facility] Start: 09-01-2024 Non-patient / Non-visit Dr. Lissette Carlin [facility] In[facility] Work Phone: Start: 09-01-2024 Dr. Rick gutierrez [facility] Work Phone: Start: 08-31-2024 Non-patient / Non-visit Niranjan Frie nd DO -[facility] Start: 08-31-2024 Niranjan Friend DO -[facility] Start: 08-31-2024 Non-patient / Non-visit Dr. Lissette Carlin [facility] In[facility] Work Phone: Start: 08-31-2024 Dr. Rick gutierrez [facility] Work Phone: Start: 08-31-2024 Non-patient / Non-visit Dr. Bola mills DO -[facility] Start: 08-31-2024 Dr. Bola Meraz DO -[facility] Start: 08-30-2024 Non-patient / Non-visit Niranjan Frie nd DO -[facility] Start: 08-30-2024 Niranjan Friend DO -[facility] Start: 08-30-2024 Non-patient / Non-visit Dr. Lissette Carlin [facility] In[facility] Work Phone: Start: 08-30-2024 Dr. Rick gutierrez [facility] In[facility] Work Phone: Start: 08-30-2024 Non-patient / Non-visit Dr. Bola mills DO -[facility] Start: 08-30-2024 Dr. Bola Meraz DO -[facility] Start: 08-29-2024 ambulatory [facility] Facility :[facility] Start: 08-29-2024 End: 09-02-2024 Evaluation and management [...] Date Procedure Procedure Detail Performing Clinician Start: 03-11-2025 Blood count smear mc rscp w/mnl difrntl wbc count No Primary Care Physician Start: 03-11-2025 Estimated creatinine clearance No Primary Care Physician Start: 03-11-2025 Mean corpuscular hem oglobin concentration determination No Primary Care Physician Start: 03-11-2025 Nucleated red blood cell count procedure No Primary Care Physician Start: 03-11-2025 Platelet mean volume determination No Primary Care Physician Start: 03-04-2025 Centesis No Primary Care Physician Start: 02-27-2025 Blood count smear mc rscp w/mnl difrntl wbc count No Primary Care Physician Start: 02-27-2025 Estimated creatinine clearance No Primary Care Physician Start: 02-27-2025 Mean corpuscular hem oglobin concentration determination No Primary Care Physician Start: 02-27-2025 Nucleated red blood cell count procedure No Primary Care Physician Start: 02-27-2025 Platelet mean volume determination No Primary Care Physician Start: 02-26-2025 Calculation of inter national normalized ratio No Primary Care Physician Start: 02-25-2025 Urine microscopy: red cells No Primary Care Physician Start: 02-25-2025 Urnls dip stick/tabl et reagent auto microscopy No Primary Care Physician Start: 02-25-2025 Blood count leukocyt e wbc automated No Primary Care Physician Start: 02-25-2025 Mononuclear cell count No Primary Care Physician Start: 02-25-2025 Polymorphonuclear le ukocyte count No Primary Care Physician Start: 02-25-2025 Anaerobic microbial culture No Primary Care Physician Start: 02-25-2025 Gram stain microscopy N o Primary Care Physician Start: 02-25-2025 Microbial culture, body fluid No Primary Care Physician Start: 02-25-2025 Triacylglycerol lipa se measurement No Primary Care Physician Start: 02-17-2025 Calculation of inter national normalized [...] count No Primary Care Physician Start: 02-16-2025 Hepatitis A virus an tibody, IgM type No Primary Care Physician Start: 02-16-2025 Hepatitis B core ant ibody measurement, IgM type No Primary Care Physician Start: 02-16-2025 Hepatitis C antibody measurement No Primary Care Physician Start: 02-16-2025 Mean [...] BLOOD SPECIMENOrdering Facility: [facility] Address: [address] [place] [address] Performed By: #### T SCR ####CC MAIN BLOOD BANKCLIA [id number] [address] Start: 11-16-2024 End: 11-16-2024 Oscar Abreu RN Work Phone: Start: 11-15-2024 Antibody screen KATHIE P IERCE Comment on above: Order Comment: Speci men Type: BLOOD SPECIMENOrdering Facility: [facility] Address: [address] [place] [address] Performed By: #### T SCR ####CC MAIN BLOOD BANKIA [id number] [address] Start: 11-13-2024 Lipid 1996 panel - S sandie or Plasma Marah Arauz A[employer]ATIC [employer]ORER Work Phone: Start: 11-12-2024 Antibody screen KATHIE P IERCE Comment on above: Order Comment: Speci men Type: BLOOD SPECIMENOrdering Facility: [facility] Address: [address] [place] [address] Performed By: #### T SCR ####CC MAIN BLOOD BANKCLIA [id number] [address] [place] Start: 11-10-2024 Urine microscopy: [...] Physician Start: 11-09-2024 Assay of lactate No [facility] Care Physician Start: 11-08-2024 Serum inorganic [...] Basic metabolic pane l calcium total Sriram Sullivano PA-C Work Phone: Start: 09-29-2024 Centesis No [...] Physician Start: 09-05-2024 Assay of lactate No [facility] Care Physician Start: 09-05-2024 Folic acid measurement [...] DTaP,Tdap,Td Vaccine (2 - Td or Tdap) [facility] Start: 11-17-2029 Prostate specific antigen measurement Prostate Cancer Screening Discussion [facility] Start: 11-13-2029 Lipid panel Lipid Screening [facility] Start: 11-19-2027 Diabetes Screening Diabetes Screening [facility] Start: 11-17-2027 Diabetes Screening Diabetes Screening [facility] Start: 11-15-2027 Diabetes Screening Diabetes Screening [facility] Start: 11-13-2027 Diabetes Screening Diabetes Screening [facility] Start: 11-18-2025 Creatinine measurement Serum Creatinine [facility] Start: 11-16-2025 Creatinine measurement Serum Creatinine [facility] Start: 11-16-2025 Screening for malignant neoplasm of colon [facility] Start: 11-15-2025 Creatinine measurement Serum Creatinine [facility] Start: 11-12-2025 Creatinine measurement Serum Creatinine [facility] Start: 05-16-2025 Hepatitis A Vaccine (2 of 2 - Risk 2-dose series) Hepatitis A Vaccine (2 of 2 - Risk 2-dose series) [facility] Start: 03-11-2025 [facility] Start: 03-04-2025 Following clinical pathway protocol [facility] Start: 03-02-2025 End: 03-02-2025 Patient encounter procedure 03/02/2025 2:20 PM EDT Office Visit [facility] [address] [place] [address] Alex Alexandre MD [address] [place] [address] Hospital discharge, diabetes mx, need for repeat vaccines, and consideration of CT chest [facility] Comment on above: Hospital discharge, diabetes mx, need fo r repeat vaccines, and consideration of CT chest Start: 02-27-2025 Patient discharge [facility] Start: 02-26-2025 [facility] Start: 02-26-2025 Referral to occupational therapist [facility] Start: 02-26-2025 Referral to service [facility] Start: 02-25-2025 Following clinical pathway protocol [facility] Start: 02-25-2025 Assessment of risk of venous thromboembolism [facility] Start: 02-25-2025 Care regimes management [facility] Start: 02-25-2025 Inhalation therapy procedure [facility] Start: 02-25-2025 Insertion of catheter into peripheral vein [facility] Start: 02-25-2025 Measuring intake and output [facility] Start: 02-25-2025 Notification of physician [facility] Start: 02-25-2025 Providing care according to standard [facility] Start: 02-25-2025 Provision of activity privileges [facility] Start: 02-25-2025 Referral to gastroenterology service [facility] Start: 02-25-2025 Referral to service [facility] Start: 02-25-2025 End: 02-25-2025 [facility] Start: 02-25-2025 Admission procedure [facility] Start: 02-25-2025 Patient referral to dietitian [facility] Start: 02-17-2025 [facility] Start: 02-17-2025 Referral to service [facility] Start: 02-17-2025 Admission procedure [facility] Start: 02-17-2025 Referral to occupational therapist [facility] Start: 02-17-2025 Referral to service [facility] Start: 02-17-2025 Patient discharge [facility] Start: 02-16-2025 Application of intermittent pneumatic compression device [facility] Start: 02-16-2025 Ambulation without limitation [facility] Start: 02-16-2025 Assessment of risk of venous thromboembolism [facility] Start: 02-16-2025 Incentive spirometry [facility] Start: 02-16-2025 Insertion of catheter into peripheral vein [facility] Start: 02-16-2025 Measuring intake and output [facility] Start: 02-16-2025 Oxygen therapy [facility] Start: 02-16-2025 Providing care according to standard [facility] Start: 02-16-2025 Referral to gastroenterology service [facility] Start: 02-16-2025 Referral to service [facility] Start: 02-16-2025 [facility] Start: 02-16-2025 Care of central venous catheter [facility] Start: 02-16-2025 Following clinical pathway protocol [facility] Start: 02-16-2025 Prothrombin time [facility] Start: 02-16-2025 Hospital admission, emergency, from emergency room, medical nature [facility] Start: 02-16-2025 Verification routine [facility] Start: 02-16-2025 Admission procedure [facility] Start: 02-16-2025 Acute hepatitis panel [facility] Start: 02-16-2025 Assay of ammonia [facility] Start: 02-16-2025 Collection venous blood venipuncture [facility] Start: 02-16-2025 Patient referral to dietitian [facility] Start: 02-13-2025 [facility] Start: 02-13-2025 Assay of lipase [facility] Start: 02-13-2025 Blood count complete auto&auto difrntl wbc [facility] Start: 02-13-2025 Comprehensive metabolic panel [facility] Start: 02-13-2025 Ct abdomen & pelvis w/contrast material [facility] Start: 02-13-2025 Emergency dept visit high severity&threat funcj [facility] Start: 02-13-2025 Ther proph/dx njx iv push single/1st sbst/drug [facility] Start: 02-13-2025 Therapeutic injection iv push each new drug [facility] Start: 02-08-2025 Centesis [facility] Start: 02-08-2025 End: 02-08-2025 [facility] Start: 02-02-2025 End: 02-02-2025 Patient encounter procedure 02/02/2025 9:20 AM EDT Office Visit [facility] [address] [place] [address] Ray Vega MD [address] [place] [address] est care [facility] Comment on above: est care Start: 01-31-2025 Patient discharge [facility] Start: 01-31-2025 Referral to service [facility] Start: 01-31-2025 [facility] Start: 01-29-2025 [facility] Start: 01-28-2025 Blood culture [facility] Start: 01-28-2025 Application of intermittent pneumatic compression device [facility] Start: 01-28-2025 Following clinical pathway protocol [facility] Start: 01-28-2025 Assessment of risk of venous thromboembolism [facility] Start: 01-28-2025 Care regimes management [facility] Start: 01-28-[address] [facility] Start: 01-28-2025 Insertion of catheter into peripheral vein [facility] Start: 01-28-2025 Notification of physician [facility] Start: 01-28-2025 Providing care according to standard [facility] Start: 01-28-2025 Provision of activity privileges [facility] Start: 01-28-2025 Referral to occupational therapist [facility] Start: 01-28-2025 Referral to service [facility] Start: 01-28-2025 Speech therapy assessment [facility] Start: 01-28-2025 End: 01-28-2025 [facility] Start: 01-28-2025 Admission procedure [facility] Start: 01-28-2025 End: 01-28-2025 [facility] Start: 01-28-2025 End: 01-28-2025 [facility] Start: 01-28-2025 [facility] Start: 01-21-2025 Patient discharge [facility] Start: 01-18-2025 End: 01-18-2025 Microbial culture, body fluid [facility] Start: 01-18-2025 Care planning and problem solving actions [facility] Start: 01-18-2025 Anaerobic microbial culture [facility] Start: 01-17-2025 [facility] Start: 01-16-2025 [facility] Start: 01-15-2025 [facility] Start: 01-14-2025 Consultation for pain [facility] Start: 01-14-2025 [facility] Start: 01-13-2025 Administration of blood product [facility] Start: 01-13-2025 [facility] Start: 01-12-2025 [facility] Start: 01-11-2025 Application of intermittent pneumatic compression device [facility] Start: 01-11-2025 Referral to general surgeon [facility] Start: 01-11-2025 [facility] Start: 01-10-2025 Care planning and problem solving actions [facility] Start: 01-09-2025 Assessment of risk of venous thromboembolism [facility] Start: 01-09-2025 Cardiac monitoring [facility] Start: 01-09-2025 Catheterization of vein [facility] Start: 01-09-2025 Inhalation therapy procedure [facility] Start: 01-09-2025 Insertion of catheter into peripheral vein [facility] Start: 01-09-2025 Measuring intake and output [facility] Start: 01-09-2025 Notification of physician [facility] Start: 01-09-2025 Patient referral to dietitian [facility] Start: 01-09-2025 Providing care according to standard [facility] Start: 01-09-2025 Referral to occupational therapist [facility] Start: 01-09-2025 Referral to service [facility] Start: 01-09-2025 Vital signs measurements [facility] Start: 01-09-2025 [facility] Start: 01-09-2025 End: 01-09-2025 Following clinical pathway protocol [facility] Start: 01-09-2025 Bacterial nucleic acid assay [facility] Start: 01-09-2025 Verification routine [facility] Start: 01-09-2025 Admission procedure [facility] Start: 01-09-2025 Hospital admission, emergency, from emergency room, medical nature [facility] Start: 01-09-2025 End: 01-09-2025 [facility] Start: 01-09-2025 Consultation [facility] Start: 01-05-2025 Patient discharge [facility] Start: 01-04-2025 [facility] Start: 01-03-2025 End: 01-03-2025 [facility] Start: 01-03-2025 End: 01-03-2025 Care regimes management [facility] Start: 01-03-2025 Notification of physician [facility] Start: 01-03-2025 [facility] Start: 01-02-2025 Application of intermittent pneumatic compression device [facility] Start: 01-02-2025 Ambulation without limitation [facility] Start: 01-02-2025 Assessment of risk of venous thromboembolism [facility] Start: 01-02-2025 Care regimes management [facility] Start: 01-02-2025 Insertion of catheter into peripheral vein [facility] Start: 01-02-2025 Measuring intake and output [facility] Start: 01-02-2025 Notification of physician [facility] Start: 01-02-2025 Providing care according to standard [facility] Start: 01-02-2025 Referral to occupational therapist [facility] Start: 01-02-2025 Referral to service [facility] Start: 01-02-2025 End: 01-02-2025 [facility] Start: 01-02-2025 Admission procedure [facility] Start: 01-02-2025 Verification routine [facility] Start: 01-02-2025 Hospital admission, emergency, from emergency room, medical nature [facility] Start: 01-02-2025 End: 01-02-2025 [facility] Start: 01-02-2025 Consultation [facility] Start: 01-02-2025 Patient referral to dietitian [facility] Start: 12-30-2024 Assay of magnesium [facility] Start: 12-30-2024 Assay of troponin quantitative [facility] Start: 12-30-2024 Basic metabolic panel calcium total [facility] Start: 12-30-2024 Blood count complete auto&auto difrntl wbc [facility] Start: 12-30-2024 Culture bacterial quanttative colony count urine [facility] Start: 12-30-2024 Culture bct isol&prsmptv id isolate ea urine [facility] Start: 12-30-2024 Ecg routine ecg w/least 12 lds trcg only w/o i&r [facility] Start: 12-30-2024 Emergency department visit high/urgent severity [facility] Start: 12-30-2024 Gluc bld gluc mntr dev cleared fda spec home use [facility] Start: 12-30-2024 Iv infusion hydration each additional hour [facility] Start: 12-30-2024 Iv infusion therapy/prophylaxis /dx 1st to 1 hr [facility] Start: 12-30-2024 Radiologic exam chest 2 views [facility] Start: 12-30-2024 Urnls dip stick/tablet reagent auto microscopy [facility] Start: 12-30-2024 [facility] Start: 12-30-2024 End: 12-30-2024 [facility] Start: 12-29-2024 End: 12-29-2024 Patient encounter procedure Endocrinology Comment on above: Diabetes maangement Diabetes maangement/ LVM OF SOONER APPOINTMENT 11/21 Start: 12-26-2024 [facility] Start: 12-26-2024 End: 12-26-2024 [facility] Start: 12-23-2024 End: 12-23-2024 Patient encounter procedure 12/23/2024 9:45 AM EDT Office Visit Vascular Medicine [address] [place] [address] Pamella Frances, FENDER MECHANIC.CIRCUS ARTIST [address] [place] [address] HOSPITAL FOLLOW UP Vascular Medicine Comment on above: HOSPITAL FOLLOW UP Start: 12-12-2024 Hepatitis B Vaccine (2 of 2 - CpG 2-dose series) Hepatitis B Vaccine (2 of 2 - CpG 2-dose series) [facility] Start: 12-07-2024 End: 12-07-2024 Patient encounter procedure 12/07/2024 3:45 PM EDT Office Visit Urology [address] [address] Eva Pichardo MD [address] [place] [address] L ureteral stent, s/p staghorn calculi Urology Comment on above: L ureteral stent, s/p staghorn calculi Start: 12-07-2024 End: 12-07-2024 Patient encounter procedure 12/07/2024 11:20 AM EDT Office Visit [facility] [address] [place] [address] Ksenia Hoyos, FENDER MECHANIC.CIRCUS ARTIST [address] [place] [address] Hospital discharge, diabetes mx, need for repeat vaccines, and consideration of CT chest [facility] Comment on above: Hospital discharge, diabetes mx, need fo r repeat vaccines, and consideration of CT chest Start: 12-02-2024 Patient discharge [facility] Start: 12-01-2024 Consultation [facility] Start: 11-29-2024 [facility] Start: 11-28-2024 Enteric precautions [facility] Start: 11-28-2024 Application of intermittent pneumatic compression device [facility] Start: 11-28-2024 Following clinical pathway protocol [facility] Start: 11-28-2024 Assessment of risk of venous thromboembolism [facility] Start: 11-28-2024 Care regimes management [facility] Start: 11-28-2024 Insertion of catheter into peripheral vein [facility] Start: 11-28-2024 Measuring intake and output [facility] Start: 11-28-2024 Notification of physician [facility] Start: 11-28-2024 Providing care according to standard [facility] Start: 11-28-2024 Provision of activity privileges [facility] Start: 11-28-2024 Referral to occupational therapist [facility] Start: 11-28-2024 Referral to service [facility] Start: 11-28-2024 End: 11-28-2024 [facility] Start: 11-28-2024 Admission procedure [facility] Start: 11-28-2024 Inhalation therapy procedure [facility] Start: 11-28-2024 Patient referral to dietitian [facility] Start: 11-25-2024 Patient discharge [facility] Start: 11-24-2024 Administration of blood product [facility] Start: 11-23-2024 Admission procedure [facility] Start: 11-22-2024 [facility] Start: 11-21-2024 Care regimes management [facility] Start: 11-21-2024 Notification of physician [facility] Start: 11-21-2024 Following clinical pathway protocol [facility] Start: 11-21-2024 Ambulation without limitation [facility] Start: 11-21-2024 Assessment of risk of venous thromboembolism [facility] Start: 11-21-2024 Insertion of catheter into peripheral vein [facility] Start: 11-21-2024 Measuring intake and output [facility] Start: 11-21-2024 Providing care according to standard [facility] Start: 11-21-2024 Referral to occupational therapist [facility] Start: 11-21-2024 Referral to service [facility] Start: 11-21-2024 End: 11-21-2024 [facility] Start: 11-21-2024 Verification routine [facility] Start: 11-21-2024 Admission procedure [facility] Start: 11-21-2024 Hospital admission, emergency, from emergency room, medical nature [facility] Start: 11-21-2024 End: 11-21-2024 [facility] Start: 11-21-2024 Consultation [facility] Start: 11-18-2024 End: 11-18-2024 Patient encounter procedure 11/18/2024 3:30 PM EDT Office Visit Cardiology [address] [place] [address] G81-25; Liver Tx Evaluation; CONTACT PRECAUTIONS - C-Diff; last of the day Cardiology Comment on above: G81-25; Liver Tx Evaluation; CONTACT PRECAUTIONS - C-Diff; last of the day Start: 11-17-2024 End: 11-17-2024 Patient encounter procedure Pulmonary Medicine Comment on above: C-diff precuations/RA-2L/Reg WC Start: 11-15-2024 End: 11-15-2024 Patient encounter procedure 11/15/2024 1:15 PM EDT Office Visit Dentistry [address] [address] Izabela Harvey, DDS [address] [place] [id number] BEDSIDE - TRANSPLANT [place] - [id number] - Consult Placed 11/12/24 Dentistry Comment on above: BEDSIDE - TRANSPL[employer] [place] - [id number] - Consult Placed 11/12/24 Start: 11-10-2024 Patient discharge [facility] Start: 11-09-2024 Consultation [facility] Start: 11-09-2024 Referral to gastroenterology service [facility] Start: 11-09-2024 Glucose measurement, body fluid [facility] Start: 11-08-2024 Urinary bladder residual urine study [facility] Start: 11-08-2024 [facility] Start: 11-05-2024 Removal of urinary catheter [facility] Start: 11-04-2024 [facility] Start: 10-31-2024 [facility] Start: 10-30-2024 Attention to flatus tube [facility] Start: 10-30-2024 Referral to gastroenterology service [facility] Start: 10-29-2024 Insertion of nasogastric tube [facility] Start: 10-29-2024 Bacteria identified in Blood by Culture Blood Culture [facility] Start: 10-29-2024 Referral to service [facility] Start: 10-29-2024 Application of intermittent pneumatic compression device [facility] Start: 10-29-2024 Following clinical pathway protocol [facility] Start: 10-29-2024 Cardiac monitoring [facility] Start: 10-29-2024 Catheterization of vein [facility] Start: 10-29-2024 Enteric precautions [facility] Start: 10-29-2024 Notification of physician [facility] Start: 10-29-2024 Vital signs measurements [facility] Start: 10-29-2024 [facility] Start: 10-29-2024 End: 10-29-2024 Consultation [facility] Start: 10-29-2024 Clostridioides difficile DNA [Presence] in Unspecified specimen by ANANTH with probe detection [facility] Start: 10-29-2024 Complete ultrasound of kidneys and bladder Kidney and Bladder [facility] Start: 10-29-2024 Lactoferrin [Presence] in Stool by Immunoassay [facility] Start: 10-29-2024 Nucleic acid assay [facility] Start: 10-29-2024 Admission procedure [facility] Start: 10-29-2024 End: 10-29-2024 Hospital admission, emergency, from emergency room, medical nature [facility] Start: 10-29-2024 End: 10-29-2024 [facility] Start: 10-29-2024 Patient referral to dietitian [facility] Start: 10-28-2024 [facility] Start: 10-28-2024 Bacteria identified in Urine by Culture Urine Culture [facility] Start: 09-14-2024 Patient discharge [facility] Start: 09-06-2024 Referral to service [facility] Start: 09-06-2024 Referral to occupational therapist [facility] Start: 09-06-2024 Referral to rn diabetes educator [facility] Start: 09-06-2024 Consultation [facility] Start: 09-06-2024 Care planning and problem solving actions [facility] Start: 09-06-2024 [facility] Start: 09-05-2024 Application of intermittent pneumatic compression device [facility] Start: 09-05-2024 Continuous positive airway pressure ventilation treatment [facility] Start: 09-05-2024 Cardiac monitoring [facility] Start: 09-05-2024 Care regimes management [facility] Start: 09-05-2024 Catheterization of vein [facility] Start: 09-05-2024 Consultation [facility] Start: 09-05-2024 Notification of physician [facility] Start: 09-05-2024 Vital signs measurements [facility] Start: 09-05-2024 End: 09-05-2024 [facility] Start: 09-05-2024 Following clinical pathway protocol [facility] Start: 09-05-2024 Admission procedure [facility] Start: 09-05-2024 Patient referral to dietitian [facility] Start: 09-02-2024 Patient discharge [facility] Start: 08-31-2024 Care planning and problem solving actions [facility] Start: 08-30-2024 [facility] Start: 08-29-2024 Following clinical pathway protocol [facility] Start: 08-29-2024 Assessment of risk of venous thromboembolism [facility] Start: 08-29-2024 Care regimes management [facility] Start: 08-29-2024 Fall prevention [facility] Start: 08-29-2024 Inhalation therapy procedure [facility] Start: 08-29-2024 Insertion of catheter into peripheral vein [facility] Start: 08-29-2024 Measuring intake and output [facility] Start: 08-29-2024 Notification of physician [facility] Start: 08-29-2024 Patient referral to dietitian [facility] Start: 08-29-2024 Providing care according to standard [facility] Start: 08-29-2024 Provision of activity privileges [facility] Start: 08-29-2024 Referral to gastroenterology service [facility] Start: 08-29-2024 Referral to rn diabetes educator [facility] Start: 08-29-2024 Referral to occupational therapist [facility] Start: 08-29-2024 Referral to service [facility] Start: 08-29-2024 Vital signs measurements [facility] Start: 08-29-2024 End: 08-29-2024 [facility] Start: 08-29-2024 Admission procedure [facility] Start: 08-21-2024 [facility] Start: 04-04-2024 COVID-19 Vaccine ( season) COVID-19 Vaccine ( season) [facility] Start: 04-04-2024 Influenza vaccination Influenza Vaccine (#1) [facility] Start: 2021 Prostate specific antigen measurement Prostate Cancer Screening Discussion [facility] Start: 2016 Zoster Vaccines (1 of 2) Zoster Vaccines (1 of 2) [facility] Start: 2011 Screening for malignant neoplasm of colon [facility] Start: 2001 Lipid panel Lipid Screening [facility] Start: 1988 DTaP/Tdap/Td Vaccines (1 - Tdap) DTaP/Tdap/Td Vaccines (1 - Tdap) [facility] Start: 1985 Hepatitis A Vaccine (1 of 2 - Risk 2-dose series) Hepatitis A Vaccine (1 of 2 - Risk 2-dose series) [facility] Start: 1985 Hepatitis A Vaccines (1 of 2 - Risk 2-dose series) Hepatitis A Vaccines (1 of 2 - Risk 2-dose series) [facility] Start: 1985 Hepatitis B Vaccine (1 of 3 - 19+ 3-dose series) Hepatitis B Vaccine (1 of 3 - 19+ 3-dose series) [facility] Start: 1985 Hepatitis B Vaccines (1 of 3 - 19+ 3-dose series) Hepatitis B Vaccines (1 of 3 - 19+ 3-dose series) [facility] Start: 1985 Pneumococcal vaccination Pneumococcal Vaccine (1 of 2 - PCV) [facility] Start: 1985 Pneumococcal Vaccine: 50+ (1 of 2 - PCV) Pneumococcal Vaccine: 50+ (1 of 2 - PCV) [facility] Start: 1985 Shingrix Vaccine (1 of 2) Shingrix Vaccine (1 of 2) [facility] Start: 1985 Urine microalbumin profile DTaP,Tdap,Td Vaccine (1 - Tdap) [facility] Start: 1984 Annual PCP Team Chronic Disease Visit Annual PCP Team Chronic Disease Visit [facility] Start: 1984 Anxiety Screening Anxiety Screening [facility] Start: 1984 Depression Screening Depression Screening [facility] Start: 1984 Hepatitis C screening Hepatitis C Screening [facility] Start: 1984 HIV screening HIV Screening [facility] Start: 1976 Glaucoma screening Diabetes: Retinopathy Screening [facility] Start: 1967 MMR Vaccines (1 of 1 - Standard series) MMR Vaccines (1 of 1 - Standard series) [facility] Start: 1966 Hemoglobin A1c measurement Diabetes: Hemoglobin A1C [facility] Start: 1966 HIV screening HIV Screening [facility] Start: 1966 Lipid panel Lipid Panel [facility] Start: 1966 Screening for malignant neoplasm of colon [facility] Start: 1966 Urine screening for protein Diabetes: Urine Protein Screening [facility] Start: 1966 Yearly Adult Physical Yearly Adult Physical [facility] Alanine aminotransfe rase [Enzymatic activity/volume] in Serum or Plasma [facility] End: 10-04-2024 Albumin [Mass/volume] in Body fluid [facility] Work Phone: Comment on above: Once (Lab) for 1 Occurrences starting until 10/04/2024 Once for 1 Occurrenc es starting 10/04/2024 until 10/04/2024 Albumin [Mass/volume ] in Serum or Plasma [facility] Alkaline phosphatase [Enzymatic activity/volume] in Serum or Plasma [facility] Anion gap in Serum o r Plasma [facility] End: 10-04-2024 Bacteria identified in Body fluid by Culture [facility] Work Phone: Comment on above: Once (Lab) for 1 Occurrences starting until 10/04/2024 Bilirubin, total measurement [facility] BUN/Creatinine ratio [facility] Calcium [Mass/volume ] in Serum or Plasma [facility] Carbon dioxide, tota l [Moles/volume] in Central venous blood [facility] CBC W Auto Different ial panel - Blood [facility] End: 10-04-2024 Clostridioides difficile toxin A+B tcdA+tcdB genes [Presence] in Stool by ANANTH with probe detection C. difficile, PCR Microbiology STAT STAT (Lab) for 1 Occurrences starting 10/04/2024 until 10/04/2024 [facility] Work Phone: Comment on above: STAT (Lab) for 1 Occurrences starting until 10/04/2024 Comprehensive metabo lic 2000 panel - Serum or Plasma [facility] Creatinine [Mass/vol ume] in Serum or Plasma [facility] Cytology report of B carmelina fluid Cyto stain [facility] Erythrocyte mean corpuscular volume determination [facility] End: 10-04-2024 Extra Urine Toney Tube Extra Urine Toney Tube Lab Timed Once for 1 Occurrences starting 10/04/2024 until 10/04/2024 [facility] Work Phone: Comment on above: Once for 1 Occurrences starting 10/05/19 until 10/04/2024 End: 10-04-2024 Glucose [Mass/volume] in Body fluid [facility] Work Phone: Comment on above: Once (Lab) for 1 Occurrences starting until 10/04/2024 Once for 1 Occurrenc es starting 10/04/2024 until 10/04/2024 Glucose [Mass/volume ] in Serum or Plasma [facility] Glucose [Mass/volume ] in Serum or Plasma [facility] Hematocrit [Volume Fraction] of Blood [facility] Hemoglobin [Mass/vol ume] in Blood [facility] End: 10-04-2024 Hemoglobin.gastrointestin al.lower [Presence] in Stool by Immunoassay Fecal Occult Blood Immunoassy Microbiology STAT Once (Lab) for 1 Occurrences starting 10/04/2024 until 10/04/2024 [facility] Work Phone: Comment on above: Once (Lab) for 1 Occurrences starting until 10/04/2024 Hepatitis A virus Ig M Ab [Presence] in Serum [facility] Hepatitis B core ant ibody measurement, IgM type [facility] Hepatitis B surface antigen measurement [facility] Hepatitis C antibody measurement [facility] INR in Blood by Coagulation assay [facility] End: 10-04-2024 Lactate dehydrogenase [Enzymatic activity/volume] in Body fluid by Lactate to pyruvate reaction [facility] Work Phone: Comment on above: Once (Lab) for 1 Occurrences starting until 10/04/2024 Once for 1 Occurrenc es starting 10/04/2024 until 10/04/2024 Lactate dehydrogenas e [Enzymatic activity/volume] in Body fluid by Pyruvate to lactate reaction [facility] Lactic acid measurement [facility] Lactic acid measurement [facility] Leukocytes [#/volume ] in Blood [facility] Magnesium measurement [facility] Mean corpuscular hemoglobin concentration determination [facility] Mean corpuscular hemoglobin determination [facility] Measurement of renal function [facility] Neutrophil count [facility] Neutrophil percent differential count [facility] End: 10-04-2024 Non-gynecological cytology method study Cytology (Non-Gynecologic) Pathology and Cytology Routine Once (Lab) for 1 Occurrences starting 10/04/2024 until 10/04/2024 [facility] Service Area Work Phone: Comment on above: Once (Lab) for 1 Occurrences starting until 10/04/2024 Ova OR parasites identification [facility] Patient Education [facility] Work Phone: Patient referral [facility] Work Phone: End: 10-04-2024 pH of Body fluid [facility] Work Phone: Comment on above: Once (Lab) for 1 Occurrences starting until 10/04/2024 Platelets [#/volume] in Blood [facility] Potassium measurement [facility] End: 10-04-2024 Protein [Mass/volume] in Body fluid [facility] Work Phone: Comment on above: Once (Lab) for 1 Occurrences starting until 10/04/2024 Once for 1 Occurrenc es starting 10/04/2024 until 10/04/2024 Protein [Mass/volume ] in Body fluid [facility] Prothrombin time [facility] Red blood cell count [facility] Red cell distributio n width determination [facility] Serum chloride measurement [facility] Sodium measurement [facility] End: 10-04-2024 Stool Pathogen Panel, PCR Stool Pathogen Panel, PCR Microbiology STAT Once (Lab) for 1 Occurrences starting 10/04/2024 until 10/04/2024 [facility] Work Phone: Comment on above: Once (Lab) for 1 Occurrences starting until 10/04/2024 Total protein measurement [facility] UA DIP, URINE (POC) UA DIP, URIN E (POC) Lab Routine Screening for genitourinary condition 1 Occurrences starting 12/07/2024 [facility] Work Phone: Comment on above: 1 Occurrences starting 12/07/2024 Urea nitrogen [Mass/volume] in Serum or Plasma [facility] End: 10-04-2024 Urinalysis complete W Reflex Culture panel - Urine [facility] Service Area Work Phone: Comment on above: Once (Lab) for 1 Occurrences starting until 10/04/2024 Once for 1 Occurrenc es starting 10/04/2024 until 10/04/2024 Urine culture [facility] Urine culture [facility] Urine culture [facility] Urine culture [facility] Urine culture [facility] Urine culture [facility] Urine culture [facility] Urine culture [facility] Immunizations Immunization Date Immunization Notes Care Provider Danny méndez 11-16-2024 COVID-19 vaccine, ag e 12+ yr ([employer] [facility]) Jeremi Abreu RN Work Phone: [facility] 11-15-2024 pneumococcal conjuga te (PCV20) vaccine, 20 valent (PREVNAR 20) Marah Arauz [employer] Work Phone: [facility] 11-14-2024 hepatitis A vaccine, adult dosage Marah Arauz [employer] Work Phone: [facility] 11-14-2024 Hepatitis B vaccine (recombinant), CpG adjuvanted Marah Arauz A[employer]AT[employer]ER Work Phone: [facility] 11-14-2024 tetanus toxoid, redu danica diphtheria toxoid, and acellular pertussis vaccine, adsorbed Marah Arauz A[employer]ATIC [employer]ER Work Phone: [facility] 09-20-2024 influenza, seasonal, injectable Jeremi Abreu RN Work Phone: [facility] Work Phone: 09-15-2024 tuberculin skin test ; purified protein derivative solution, intradermal Jeremi Abreu RN Work Phone: [facility] Payers Date Payer Category Payer Self-pay 2024 Medicaid [id number] 2024 Medicaid [id number] 1965 Unknown [id number] 1965 Unknown [id number] Unknown [id number] Social History Date Type Detail Facility Start: 10-04-2024 End: 03-11-2025 Tobacco smoking status NHIS Ex-smoker [facility] Work Phone: History of tobacco use Current smoker [facility] Work Phone: History of tobacco use Cigarette Smoker [facility] Work Phone: Start: 10-04-2024 End: 11-11-2024 Tobacco use and exposure Smokeless tobacco non-user [facility] Work Phone: Start: 10-04-2024 Alcoholic beverage intake Ex-drinker (finding) [facility] Work Phone: Start: 10-04-2024 End: 11-15-2024 History of Social function [facility] Start: 10-04-2024 End: 11-15-2024 Tobacco use panel [facility] Start: 1965 Sex assigned at Not on file [facility] Work Phone: Start: 09-24-2024 End: 10-04-2024 Exposure to SARS-CoV-2 (event) Not sure [facility] Work Phone: Start: 10-11-2024 End: 11-21-2024 Sex Male (finding) [facility] Start: 1965 Sex Assigned At Male [facility] Start: 11-11-2024 End: 11-18-2024 Alcoholic beverage intake Lifetime non-drinker (finding) [facility] Has the Vax[employer], or water [employer] threatened to shut off services in your home in past 12Mo No [facility] (I/We) worried [facility] (my/our) food would run out before (I/we) got money to buy more. Sometimes true [facility] In the past 12 month s, has lack of transportation kept you from medical appointments or from getting medications? Yes [facility] Medical Equipment Procedure Code Equipment Code Equipment Origin al Text Equipment Identifier Dates Cystoscopic insertion of stent ([id number]) [id number] FDA Start: 09-05-2024 Goals Date Patient Goal Desired Activity /State Functional Status Date Assessment Result Facility 02-27-2025 Functional status Ambulates [facility] Work Phone: 02-17-2025 Functional status Bathroom Privi lege;Back to bed [facility] Work Phone: 01-31-2025 Functional status Ambulates [facility] Work Phone: 01-21-2025 Functional status Ambulates [facility] Work Phone: 01-05-2025 Functional status With Assist of 1 [facility] Work Phone: 01-05-2025 Functional status Ambulates;Bath room Privilege [facility] Work Phone: 12-02-2024 Functional status Ambulates [facility] Work Phone: 11-25-2024 Functional status Bedrest [facility] Work Phone: 11-18-2024 Are you deaf, or do you have serious difficulty hearing Yes 11/18/2024 10:13 AM EDT Anika Carolina RN Yes [facility] 11-18-2024 Are you blind, or do you have serious difficulty seeing, even when wearing glasses No 11/18/2024 10:13 AM EDT Anika Carolina RN No [facility] 11-18-2024 Do you have serious difficulty walking or climbing stairs Yes 11/18/2024 10:13 AM EDT Anika Carolina RN Yes [facility] 11-18-2024 Do you have difficul ty dressing or bathing Yes 11/18/2024 10:13 AM EDT Anika Carolina RN Yes [facility] 11-18-2024 Because of a physica l, mental, or emotional condition, do you have difficulty doing errands alone such as visiting a physician's office or shopping Yes 11/18/2024 10:13 AM EDT Anika Carolina RN Yes [facility] 11-11-2024 Functional status Bedpan [facility] Work Phone: 09-15-2024 Functional status Ambulates [facility] Work Phone: 09-02-2024 Functional status Bathroom Privilege [facility] Work Phone: Mental Status Date Assessment Result Facility 03-11-2025 Cognitive function Appropriate;F ollows Commands;Drowsy [facility] Work Phone: 03-04-2025 Cognitive function Awake;Alert;Appropriat e [facility] Work Phone: 02-27-2025 Cognitive function Voice/Name [facility] Work Phone: 02-17-2025 Cognitive function Voice/Name [facility] Work Phone: 02-16-2025 Cognitive function Alert;Appropr iate;Follow s Commands;Drowsy [facility] Work Phone: 02-11-2025 Cognitive function Awake;Alert;Appropriat e [facility] Work Phone: 01-31-2025 Cognitive function Cooperative;A nxious;Talk ative [facility] Work Phone: 01-30-2025 Cognitive function Voice/Name [facility] Work Phone: 01-28-2025 Cognitive function Awake;Alert;A ppropriate; Follows Commands [facility] Work Phone: 01-21-2025 Cognitive function Voice/Name [facility] Work Phone: 01-05-2025 Cognitive function Voice/Name [facility] Work Phone: 01-02-2025 Cognitive function Awake;Alert;Appropriat e [facility] Work Phone: 12-30-2024 Cognitive function Awake;Alert;A ppropriate; Follows Commands [facility] Work Phone: 12-02-2024 Cognitive function Voice/Name [facility] Work Phone: 11-25-2024 Cognitive function Voice/Name [facility] Work Phone: 11-18-2024 Because of a physica l, mental, or emotional condition, do you have serious difficulty concentrating, remembering, or making decisions Yes 11/18/2024 10:13 AM Anika Andino RN Yes [facility] 11-10-2024 Cognitive function Voice/Name [facility] Work Phone: 09-29-2024 Cognitive function Awake;Alert;A ppropriate; Follows Commands [facility] Work Phone: 09-14-2024 Cognitive function Appropriate;Cooperativ e [facility] Work Phone: 09-14-2024 Cognitive function Voice/Name [facility] Work Phone: 09-02-2024 Cognitive function Voice/Name [facility] Work Phone: Clinical Notes 08-30-2024 to 03-30-2025 Note Date & Type Note Facility 03-30-[address] [facility] 03-11-2025 Discharge summary Note Date/Time March 11, 2025 10:05pm [facility] Medical Records Department [address] [place] [address] Emergency Department Summary 03/11/25 MR#: [id number] Acct: [id number] Name: FRANLKIN WIGGINS Rep #:[id number] : 1965 59 From: Alber Dunn MD PCP: YG Pena Status:REG E R Location: ED HPI <PUALETTE Roberts - Last Filed: 03/11/25 22:00> History of Present Illness Chief Complaint: Hyperglycemia Narrative Narrative: 59-year-old male with PMH of HTN, HLD, DM2, liver 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 onhospice presents with hyperglycemia. He states his ex family checks his sugars and gives him his short acting and long-acting insulin. His sugar has read highthe last 2 days. He has been on hospice the last 3 weeks and they come out weekly but he can call for acute concerns. He called today about the blood sugars but they did not get back to him in a timely manner so he called EMS. After sugar read high today Sylvia gave him some short acting insulin but he doesnot know how much. [facility] <PAULETTE Roberts - Last Filed: 03/11/25 22:00> [facility] Medical History Diffuse abdominal pain Acute hepatic encephalopathy Hyperammonemia Elevated liver enzymes Cirrhosis of liver with ascites Decompensated cirrhosis History of diabetes mellitus Chronic anemia VRE (vancomycin resistant enterococcus) culture positive Spinal [...] Medications ?Medication ?Instructions ?Recorded ?Last Taken ?Type acetaminophen 500 mg tablet 1,000 mg PO Q8 PRN fever o r pain 10/28/24 Unknown History metformin 500 mg tablet,extended 500 mg PO QPM diabete s 11/21/24 02/15/25 History release 24 hr cyclobenzaprine 10 mg tablet 10 mg PO QHS muscle relax er 01/02/25 02/15/25 History insulin lispro 100 unit/mL 10 unit (0.1 mL) subcut TID AC #0 mL 01/05/25 02/15/25 Rx subcutaneous pen (Humalog KwikPen (U-100) Insulin) pen needle, diabetic 31 gauge x #1,200 ea 01/31/25 Unk nown Rx 12/17 (Pen Needle) carvedilol 3.125 mg tablet 3.125 mg PO BID 1 month #60 tabs 02/17/25 Unknown Rx furosemide 40 mg tablet 40 mg PO DAILY 30 days #30 t abs 02/17/25 Unknown Rx spironolactone 100 mg tablet 150 mg (1.5 x 100 mg) PO DAILY 1 02/17/25 02/15/25 Rx month #30 tabs ciprofloxacin HCl 500 mg tablet 500 mg PO DAILY #14 ta bs 02/27/25 Unknown Rx lactulose 10 gram/15 mL oral 20 g (30 mL) PO TID #1 mL 02/27/25 Unknown Rx solution insulin glargine-yfgn 100 unit/mL 20 unit subcut QHS 0 03/10/25 Unknown History (3 mL) subcutaneous pen potassium chloride 20 mEq 20 meq PO QDAY 7 days #7 tab s 03/10/25 Unknown Rx tablet,extended release (K-Tab) potassium chloride 20 mEq 20 meq PO BID 5 days #10 tab s 03/11/25 Unknown Rx tablet,extended release (K-Tab) Allergy/AdvReac Type Severity Reaction Status Date / Time No Known Allergies Allergy Verified 03/11/25 17:15 Family History Mother Heart disease Hypertension CAD (coronary artery disease) Myocardial infarction Father Hypertension Heart disease Heart failure Surgical History History of tonsillectomy and adenoidectomy Social History (Updated 03/10/25 @ 14:16 by Alex Hawthorne) household members: other details: ex /her Smoking Status: Former smoker how long ago did patient quit smoking: Quit ~ 3-4 months prior (fall 2023), smoked 1.5 ppd since teen until quit. alcohol intake: never substance use type: does not use additional social history: EX and a friend help with his care. ROS <PAULETTE Roberts - Last Filed: 03/11/25 22:00> ROS ED ROS Narrative Constitutional: Negative for fever, chills. CVS: Negative for chest pain. Respiratory: Negative for shortness of breath. EXAM <PAULETTE Roberts - Last Filed: 03/11/25 22:00> Physical Exam Narrative Exam Narrative: CONST: Patient sitting in no acute distress. Mildly jaundiced. EYES: Normal inspection. NECK: Normal inspection. RESP: No respiratory distress, CTAB. CVS: Regular rate and rhythm, no murmur, no gallop. ABD: Soft with mild ascites, no tenderness, no guarding or rebound. SKIN: Color normal, no rash, warm, dry, intact. EXTREMITIES: Normal appearance, no pedal edema. NEURO: Alert and answering questions appropriately. PSYCH: Normal affect. Const Vital Signs: 03/11/25 17:10 03/11/25 17:16 03/11/25 19:02 Temperature 98.1 F Temperature Source Oral Pulse Rate 72 70 Respiratory Rate 12 18 Respiratory Effort Normal Non-Labored Respiratory Pattern Normal Blood Pressure 105/74 96/71 Blood Pressure Mean 84 79 Pulse Ox 100 100 Oxygen Delivery Method Room Air Room Air 03/11/25 21:00 Temperature Temperature Source Pulse Rate 76 Respiratory Rate 25 H Respiratory Effort Respiratory Pattern Blood Pressure 100/56 L Blood Pressure Mean 70 Pulse Ox 100 Oxygen Delivery Method Room Air <Dr. Alber Dunn MD - Last Filed: 03/11/25 20:03> Physical Exam Const Vital Signs: 03/11/25 17:10 03/11/25 17:16 03/11/25 19:02 Temperature 98.1 F Temperature Source Oral Pulse Rate 72 70 Respiratory Rate 12 18 Respiratory Effort Normal Non-Labored Respiratory Pattern Normal Blood Pressure 105/74 96/71 Blood Pressure Mean 84 79 Pulse Ox 100 100 Oxygen Delivery Method Room Air Room Air 03/11/25 21:00 Temperature Temperature Source Pulse Rate 76 Respiratory Rate 25 H Respiratory Effort Respiratory Pattern Blood Pressure 100/56 L Blood Pressure Mean 70 Pulse Ox 100 Oxygen Delivery Method Room Air [facility] <PAULETTE Roberts - Last Filed: 03/11/25 22:00> [facility] Narrative Medical decision making narrative: Differential: Diabetic hyperglycemia versus DKA 59-year-old male on hospice for BOYER cirrhosis., With history of type 2 diabetes presents with high blood sugar. Has been reading high for 2 days. He called hospice but did not respond to timely manner according to him so he called EMS and came to the ED. He is awake alert no distress. Vital stable. Overall exam is benign other than findings consistent with his chronic liver disease. Glucose is 495 with normal CO2 and gap and no ketones. He was given 1L IV fluids but I did not want to do more as it may third space with his cirrhosis. He was given 15 units of insulin but somehow his sugar only went from 495 to 494 so he will be observed longer and rechecked. It is trending down to 412, will continue to drop I feel he can go home continue to take his short long-acting insulin. Potassium was also 2.8 so he was given p.o. replacement here and a prescription for home. He will go home and take his long-acting insulin tonight, I discussed he may need to uptitrate his short acting insulin if it still reading high. He was discharged in stable condition. I have personally performed a face to face assessment of the patient and have reviewed the SAMSON Note. I performed a substantive portion of the visit including all aspects of the following. My blackwell findings include: History is [59-year-old male history of liver failure from Boyer with a history of ascites and diabetes. Presents due to elevated blood sugar.] Exam is [59-year-old male sitting upright in bed. Vital signs are stable afebrile. He does not look septic or toxic is in no distress. His pulse ox 100% on room air. H EENT exam pupils round react light. Moist mutes members. Neck nontender no JVD. Lungs clear to auscultation bilaterally. Heart regular rhythm no murmur rate about 70. Chest wall and ribs nontender. Abdomen soft nondistended normal bowel sounds without peritoneal signs. Mild ascites fluid. Completely nontender. Moving all 4 extremities. Nontender no edema. Neurologically he is awake and alert. Answering questions following commands.] Medical Decision Making [59-year-old diabetic male with liver failure with elevated blood sugar.] Other additions or changes: [None] Lab Data Labs: Laboratory Results - last 24 hr 03/11/25 03/11/25 03/11/25 17:25 19:47 20:18 WBC 8.2 RBC 2.56 L Hgb 8.0 L Hct 23.7 L MCV 92.6 MCH 31.3 MCHC 33.8 RDW Std Deviation 63.4 H RDW Coeff of Francis 18.8 H Plt Count 94 L MPV 12.1 H Immature Gran % (Auto) 0.500 Neut % (Auto) 70.2 H Lymph % (Auto) 12.6 L Kenton % (Auto) 10.9 H Eos % (Auto) 5.2 H Baso % (Auto) 0.6 Absolute Neuts (auto) 5.8 Absolute Lymphs (auto) 1.03 Nucleated RBC % 0 Differential Comment SCANNED Platelet Estimate MOD DEC Sodium 128 L Potassium 2.8 L Chloride 96 L Carbon Dioxide 21.4 Anion Gap 11 BUN 16 Creatinine 1.30 H Estim Creat Clear Calc 69.27 Est GFR (MDRD) Non-Af 64 BUN/Creatinine Ratio 12.0 Glucose 495 H* Calcium 8.0 b-Hydroxybutyric mmol/L 0.0 POC Glucose > 500 H* 494 H* <Dr. Alber Dunn MD - Last Filed: 03/11/25 20:03> [facility] Narrative Medical decision making narrative: I have personally performed a face to face assessment of the patient and have reviewed the SAMSON Note. I performed a substantive portion of the visit including all aspects of the following. My blackwell findings include: History is [59-year-old male history of liver failure from Boyer with a history of ascites and diabetes. Presents due to elevated blood sugar.] Exam is [59-year-old male sitting upright in bed. Vital signs are stable afebrile. He does not look septic or toxic is in no distress. His pulse ox 100% on room air. H EENT exam pupils round react light. Moist mutes members. Neck nontender no JVD. Lungs clear to auscultation bilaterally. Heart regular rhythm no murmur rate about 70. Chest wall and ribs nontender. Abdomen soft nondistended normal bowel sounds without peritoneal signs. Mild ascites fluid. Completely nontender. Moving all 4 extremities. Nontender no edema. Neurologically he is awake and alert. Answering questions following commands.] Medical Decision Making [59-year-old diabetic male with liver failure with elevated blood sugar.] Other additions or changes: [None] History & Record Review Discussion w/independent historian: Patient Additional record(s) reviewed:: Prior inpatient record, Prior outpatient record, Prior ED visit and Prior labs Lab Data Attestation: I reviewed the patient's lab results. Lab results narrative: CBC shows a white count 8.2. H&H 8.0 and 23.7. Platelets 94. Electrolytes show sodium 128. Potassium 2.8. BUN and creatinine 16 and 1.3. Gap 11. Glucose 495. Beta hydroxybutyric acid is 0 Labs: Laboratory Results - last 24 hr 03/11/25 03/11/25 03/11/25 17:25 19:47 20:18 WBC 8.2 RBC 2.56 L Hgb 8.0 L Hct 23.7 L MCV 92.6 MCH 31.3 MCHC 33.8 RDW Std Deviation 63.4 H RDW Coeff of Francis 18.8 H Plt Count 94 L MPV 12.1 H Immature Gran % (Auto) 0.500 Neut % (Auto) 70.2 H Lymph % (Auto) 12.6 L Kenton % (Auto) 10.9 H Eos % (Auto) 5.2 H Baso % (Auto) 0.6 Absolute Neuts (auto) 5.8 Absolute Lymphs (auto) 1.03 Nucleated RBC % 0 Differential Comment SCANNED Platelet Estimate MOD DEC Sodium 128 L Potassium 2.8 L Chloride 96 L Carbon Dioxide 21.4 Anion Gap 11 BUN 16 Creatinine 1.30 H Estim Creat Clear Calc 69.27 Est GFR (MDRD) Non-Af 64 BUN/Creatinine Ratio 12.0 Glucose 495 H* Calcium 8.0 b-Hydroxybutyric mmol/L 0.0 POC Glucose > 500 H* 494 H* Discharge Plan Triage Chief Complaint: Hyperglycemia ED Midlevel Provider: Day Bird ED Provider: Alber Dunn Dx/Rx/DC Orders Clinical Impression: Acute hyperglycemia, Hx of type 2 diabetes mellitus, Liver 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, Acute hypokalemia Instructions: ED Diabetic Hyperglycemia Prescriptions: New potassium chloride [K-Tab] 20 mEq tablet extended release 20 meq PO BID 5 Days Qty: 10 0RF No Action potassium chloride [K-Tab] 20 mEq tablet extended release 20 meq PO QDAY 7 Days Qty: 7 0RF cyclobenzaprine 10 mg tablet 10 mg PO QHS insulin lispro [Humalog KwikPen Insulin] 100 unit/mL Insulin Pen 10 unit subcut TIDAC Qty: 0 0RF (DME) pen needle, diabetic [Pen Needle] 31 gauge x 5/16 needle See Rx Instructions .Route Qty: 1200 0RF Rx Instructions: As directed lactulose 10 gram/15 mL Solution 20 g PO TID Qty: 1 0RF ciprofloxacin HCl 500 mg tablet 500 mg PO DAILY Qty: 14 0RF Rx Instructions: start on 02/28/25 acetaminophen 500 mg Tablet 1,000 mg PO Q8 PRN (Reason: fever or pain) metformin 500 mg tablet extended release 24 hr 500 mg PO QPM furosemide 40 mg Tablet 40 mg PO DAILY 30 Days Qty: 30 2RF spironolactone 100 mg tablet 150 mg PO DAILY 30 Days Qty: 30 2RF Rx Instructions: Hold for serum potassium more than 5.0. carvedilol 3.125 mg tablet 3.125 mg PO BID 30 Days Qty: 60 2RF Rx Instructions: must administer with a meal/food insulin glargine-yfgn 100 unit/mL (3 mL) Insulin Pen 20 unit subcut QHS Primary Care Provider: Josy Elias Referrals: Josy Elias NP-C [Primary Care Provider] - Activity Restrictions/Additional Instructions: Take your short acting insulin and long-acting insulin as home as prescribed, you may need to give additional units if it continues to run high. Contact [facility]. Print Language: Nepalese Disposition Disposition: Home, Self Care What to do if you have Problems For any increased pain, shortness of breath, bleeding, nausea or vomiting, chestpain, or any unexpected problems, contact your Primary Care Provider. Call [facility] ([phone]) or report to the closest Emergency Room. Call 911 if necessary. 08/03/28 2205 <Electronically signed by Alber Dunn MD> Cosigner Signature (if applicable): 03/11/252199 <Electronically signed by Day CALDWELL> CC: YG Elias ~ Signed [facility] Work Phone: 1(333) 420-459507-27-2025 [facility]07-17-2025 [facility]07-16-2025 Discharge summary Author Alber Dunn [facility] Note Date/Time February 16, 2025 6:39 pm [facility] Medical Records Department [address] [place] [address] Emergency Department Summary 02/16/25 MR#: [id number] Acct: [id number] Name: FRANKLIN WIGGINS Rep #:[id number] : [...] similar symptoms: Yes Recent Illness/Hospitalization: No PFSH [facility] Medical History VRE (vancomycin resistant enterococcus) culture [...] liver enzymes. Patient will be admitted to [facility]. History & Record Review Discussion w/independent [...] diabetes mellitus Disposition Disposition: Acute Care Hospital [facility] What to do if you have Problems For any increased pain, shortness of breath, bleeding, nausea or vomiting, chestpain, or any unexpected problems, contact your Primary Care Provider. Call [facility] ([phone]) or report to the closest Emergency Room. Call 911 if necessary. 02/16/25 1839 <Electronically signed by Alber Dunn MD> Cosigner Signature (if applicable): CC: Dr. Jerald Sherwood MD ~ Signed [facility] Work Phone: 1(839) 603-655107-16-2025 Procedure [facility] 02-13-2025 Radiology Diagnostic study [facility]07-11-2025 Radiology Diagnostic study [facility]07-08-2025 Radiology Diagnostic study [facility]06-30-2025 Discharge summary Author Yaritza Leo [facility] Note Date/Time January 31, 2025 2:41 pm [facility] Medical Records Department [address] [place] [address] Discharge Summary 01/31/25 1217 MR#: [id number] Acct: [id number] Name: FRANKLIN WIGGINS Rep #:[id number] : 1965 59 From: Yaritza Leo DO PCP: Dr. Jerald Sherwood MD Status:ADM I N Location: [place] [address] Providers Date of Admission: 01/28/25 Date of [...] a 59-year-old male who presented from local [facility] facility to which she was discharged on [...] Final Vancomycin Resist. E. faecalis 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 01/28/25 06:15 Blood Culture (Wb) - Anticubital [...] Self Care Charges/Coding Visit Charges Inpatient E&M: 47838 Disch Hosp >30min 01/31/25 1441 <Electronically signed by Yaritza Leo DO> Cosigner Signature (if applicable): CC: Dr. Yaritza Leo DO; Dr. Jerald Sherwood MD~ Signed [facility] Work Phone: 1(233) 701-178406-30-2025 [facility]06-30-2025 Hospital Discharge instructionsAdditional Instructions 1. Goal bowel movements with lactulose is 2-3 bowel movements daily. If you are having more than 3 bowel movements daily please decrease your lactulose from 3 times daily to 2 times daily 2. It is very important that you are compliant with your medications and utilize them as directed Date of Discharge: 01/31/25[facility] Work Phone: 1(859) 325-724206-29-2025 Progress note Author Yaritza Leo [facility] Note Date/Time January 30, 2025 1:37 pm [facility] Medical Records Department [address] [facility] [place] [address] Progress Note - Hospitalist 01/30/25 0728 MR#: [id number] Acct: [id number] Name: FRANKLIN WIGGINS Rep #:[id number] : 1965 59 From: Yaritza Leo DO PCP: Dr. Jerald Sherwood MD Status:ADM I N Location: [place] [address] Reason for Visit Reason for Visit: Fever [...] Neut % (Auto) 53.2, Lymph % (Auto) 20.0,Kenton % (Auto) 18.5 H, Eos % (Auto) [...] Preliminary GPC Poss Enterococcus sp 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 01/28/25 03:10 Mucosa - Nose SARS-CoV-2, Influenza [...] Full code Charges/Coding Visit Charges Inpatient E&M: 18414 Subs Hosp L2 01/30/25 6010 <Electronically signed by Yaritza Leo DO> Cosigner Signature (if applicable): CC: ~ Signed [facility] Work Phone: 1(187) 735-433806-28-2025 Progress note Author Yaritza Leo [facility] Note Date/Time January 29, 2025 5:59 pm [facility] Medical Records Department [address] [place] [address] Progress Note - Hospitalist 01/29/25 0754 MR#: [id number] Acct: [id number] Name: FRANKLIN WIGGINS Rep #:[id number] : 1965 59 From: Yaritza Leo DO PCP: Dr. Jerald Sherwood MD Status:ADM I N Location: [place] [address] Reason for Visit Reason for Visit: Fever [...] (Auto) 60.8, Lymph % (Auto) 17.1 L, Kenton % (Auto) 15.2 H, Eos % (Auto) [...] Full code Charges/Coding Visit Charges Inpatient E&M: 53623 Subs Hosp L2 01/29/25 5497 <Electronically signed by Yaritza Leo DO> Cosigner Signature (if applicable): CC: ~ Signed [facility] Work Phone: 1(910) 378-961506-27-2025 History and physical note Author Boone Izquierdo [facility] Note Date/Time January 28, 2025 7:26 am [facility] Medical Records Department [address] [place] [address] H&P Exam - Hospitalist 01/28/25 0710 MR#: [id number] Acct: [id number] Name: FRANKLIN WIGGINS Rep #:[id number] : 1965 59 From: Boone Izquierdo DO PCP: Dr. Jerald Sherwood MD Status:REG E R Location: ED HPI - General General Date of Service: 01/28/25 Chief Complaint: Fever. HPI Narrative FRANKLIN WIGGINS, is a 59 M who presents with fever from the correction. This ashely 59-year-old male with cirrhosis presents with fever and confusion from the correction. In emergency room, he was afebrile but [...] stable in the emergencyroom without fluid resuscitation. [facility] Medical History (Updated 01/28/25 @ 07:16 [...] (Auto) 57.8, Lymph % (Auto) 18.8 L, Kenton % (Auto) 16.7 H, Eos % (Auto) [...] Clarity Cloudy, Urine pH 8.0, Ur Specific [place] 1.015, Urine Protein 100 H, Urine Glucose [...] bilateral basilar atelectatic pulmonary changes. Reading Location: [facility] Abdomen/Pelvis CT 01/28/25 05:12 [...] correlate for possible hepatic colopathy. Reading Location: [facility] Assessment & Plan Assessment/Plan (1) Hepatic [...] be continued. Charges/Coding Visit Charges Inpatient E&M: 05315 Init Hosp L3 01/28/25 0726 <Electronically signed by Boone Izquierdo DO> Cosigner Signature (if applicable): CC: Dr. Boone Izquierdo DO; Dr. Jerald Sherwood MD~ Signed [facility] Work Phone: 1(533) 566-284706-27-2025 History and physical note Author Boone Izquierdo [facility] Note Date/Time January 28, 2025 7:26 am [facility] Medical Records Department [address] [place] [address] H&P Exam - Hospitalist 01/28/25 0710 MR#: [id number] Acct: [id number] Name: FRANKLIN WIGGINS Rep #:[id number] : 1965 59 From: Boone Izquierdo DO PCP: Dr. Jerald Sherwood MD Status:REG E R Location: ED HPI - General General Date of Service: 01/28/25 Chief Complaint: Fever. HPI Narrative FRANKLIN WIGGINS, is a 59 M who presents with fever from the correction. This ashely 59-year-old male with cirrhosis presents with fever and confusion from the correction. In emergency room, he was afebrile but [...] stable in the emergencyroom without fluid resuscitation. [facility] Medical History (Updated 01/28/25 @ 07:16 [...] (Auto) 57.8, Lymph % (Auto) 18.8 L, Kenton % (Auto) 16.7 H, Eos % (Auto) [...] Clarity Cloudy, Urine pH 8.0, Ur Specific [place] 1.015, Urine Protein 100 H, Urine Glucose [...] correlate for possible hepatic colopathy. Reading Location: [place] [address] Assessment & Plan Assessment/Plan (1) Hepatic encephalopathy: [...] be continued. Charges/Coding Visit Charges Inpatient E&M: 08861 Init Hosp L3 01/28/25 0726 <Electronically signed by Boone Izquierdo DO> Cosigner Signature (if applicable): CC: Dr. Boone Izquierdo DO; Dr. Jerald Sherwood MD~ Signed [facility] Work Phone: 1([phone]) 234-489106-27-2025 Discharge summary Author Danny Hutton [facility] Note Date/Time January 28, 2025 6:59 am [facility] Medical Records Department [address] [place] [address] Emergency Department Summary 01/28/25 MR#: [id number] Acct: [id number] Name: FRANKLIN WIGGINS Rep #:[id number] : 1965 59 From: Danny christy DO PCP: Dr. Jerald Sherwood MD Status:REG E R Location: ED HPI History of Present Illness Chief Complaint: Confusion Narrative Narrative: Chief complaint and HPI: Fever and confusion. 59-year-old male with past medical history DM2, ABBY, HTN, HLD, liver 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 presents from [facility] for fever and confusion. History taken by [...] diarrhea, constipation, dysuria. I personally spoke with [facility] staff. The nurse is new to taking [...] Alert, grossly intact, sensation intact Psych: Cooperative [facility] Medical History Umbilical hernia [...] Oxygen Delivery Method Room Air 01/28/25 06:16 06/27/25 06:17 Temperature 98.6 F 98.6 F Temperature Source Oral Pulse Rate 103 H 102 H Respiratory Rate 16 14 Blood Pressure 105/67 105/67 Blood Pressure Mean 79 79 Pulse Ox 100 99 Oxygen Delivery Method Room Air MDM MDM MDM Narrative Medical decision making narrative: 59-year-old male with past medical history DM2, ABBY, HTN, HLD, liver 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 presents from [place] for fever and confusion. Patient is a poor historian therefore history taken by EMS as well as [place] nurse. Reported patient developed a fever of 101 ?F this evening prior to arrival. No meds were given. Nurse as well as myself does not know the patient's baseline mental status although nursing staff here that note is the patient states that wax and wanes. Nurse there states that multiple techs felt that the patient wasconfused at [place] and that he was asking about people [...] (Auto) 57.8 Lymph % (Auto) 18.8 L Kenton % (Auto) 16.7 H Eos % (Auto) [...] Color Urine Clarity Urine pH Ur Specific [place] Urine Protein Urine Glucose (UA) Urine Ketones Urine Occult Blood Urine Nitrite Urine Bilirubin Urine Urobilinogen Ur Leukocyte Esterase Urine RBC Urine WBC Ur Squamous Epith Cells Urine Bacteria Urine Mucus 01/28/25 01/28/25 04:33 04:58 WBC RBC Hgb Hct MCV MCH MCHC RDW Std Deviation RDW Coeff of Francis Plt Count MPV Immature Gran % (Auto) Neut % (Auto) Lymph % (Auto) Kenton % (Auto) Eos % (Auto) Baso % [...] Clarity Cloudy Urine pH 8.0 Ur Specific [place] 1.015 Urine Protein 100 H Urine Glucose [...] correlate for possible hepatic colopathy. Reading Location: [place] [address] Discharge Plan Triage Chief Complaint: Confusion ED [...] MD [Primary Care Provider] - Print Language: Nepalese What to do if you have Problems For any increased pain, shortness of breath, bleeding, nausea or vomiting, chestpain, or any unexpected problems, contact your Primary Care Provider. Call [facility] ([phone]) or report to the closest Emergency Room. Call 911 if necessary. 01/28/25 0659 <Electronically signed by Danny Hutton DO> Cosigner Signature (if applicable): CC: Dr. Jerald Sherwood MD ~ Signed [facility] Work Phone: 1([phone]) 289-210806-27-2025 Radiology Diagnostic study [facility]06-27-2025 Radiology Diagnostic study [facility]06-20-2025 Discharge summary Author Anurag Irene [facility] Note Date/Time January 21, 2025 11:1 2am [facility] Medical Records Department [address] [place] [address] Transfer to [facility] MR#: [id number] Acct: [id number] Name: FRANKLIN WIGGINS Rep #:[id number] : [...] (Auto) 63.5, Lymph % (Auto) 16.3 L, Kenton % (Auto) 11.9 H, Eos % (Auto) [...] Admit Date/Time: 01/09/25 14:16 Attending Provider: Anurag Ireen Primary Care Provider: Josy Elias Consulting Providers: Yaritza Leo; Jefferson Malave; Aleyda Bautista; Cielo Tovar Instructions Additional Instructions / Restrictions: Follow-up in [facility] hepatology/GI. Discharge Orders/Prescriptions Prescriptions: New spironolactone [...] Tovar MD; Dr. Jefferson Malave MD ~ [facility] Work Phone: 1(457) 827-765006-20-2025 Discharge summary [address] Anurag [facility] Note Date/Time January 21, 2025 1:29 pm [facility] Medical Records Department [address] [place] [address] Discharge Summary 01/21/25 1112 MR#: [id number] Acct: [id number] Name: FRANKLIN WIGGINS Rep #:[id number] : 1965 59 From: Anurag Lucero PCP: YG Pena Status:ADM I N Location: [place] [address] Providers Date of Admission: 01/09/25 Date of Discharge: 01/21/25 Primary Care Physician: YG Pena Consultations 01/09/25 15:46 Consult: [place] Nibs Inspector / Pulmonary Medicine Routine Consulting Provider: Intensivists/Pulmonary Med Reason for Consult: sepsis EMERGENT Consult: No Notified: Yes Date Notified: 01/09/25 Time Notified: [...] (Auto) 63.5, Lymph % (Auto) 16.3 L, Kenton % (Auto) 11.9 H, Eos % (Auto) [...] solution (Constulose) 15 ml PO TID PRN asapzkfvcoev52/27/25 L.acidophil,salivari-Bifido bifidum-Strep thermoph 175 mg capsule 1 [...] Instructions Additional Instructions / Restrictions: Follow-up in [facility] hepatology/GI. Discharge Orders/Prescriptions Prescriptions: New spironolactone [...] Assisted Facility Charges/Coding Visit Charges Inpatient E&M: 61863 Disch Hosp >30min 01/21/25 1117 <Electronically signed [...] Elias; Dr. Anurag Irene MD ~* Signed [facility] Work Phone: 1(419) 263-825006-20-2025 [facility]06-19-2025 Progress note Author Anurag Irene [facility] Note Date/Time January 20, 2025 2:40 pm [facility] Medical Records Department [address] [place] [address] Progress Note - Hospitalist 01/20/25 1436 MR#: [id number] Acct: [id number] Name: FRANKLIN WIGGINS Rep #:[id number] : 1965 59 From: Anurag Lucero PCP: YG Pena Status:ADM I N Location: [place] [address] Reason for Visit Reason for Visit: Diagnoses [...] (Auto) 63.5, Lymph % (Auto) 16.3 L, Kenton % (Auto) 11.9 H, Eos % (Auto) [...] (Auto) 63.5, Lymph % (Auto) 16.3 L, Kenton % (Auto) 11.9 H, Eos % (Auto) [...] 167 H Charges/Coding Visit Charges Inpatient E&M: 17008 Subs Hosp L2 01/20/25 1440 <Electronically signed by Anurag Irene MD> Cosigner Signature (if applicable): CC: ~ Signed [facility] Work Phone: 1([phone]) 751-313206-18-2025 Progress note Author Anurag Irene [facility] Note Date/Time January 19, 2025 4:46 pm [facility] Medical Records Department [address] [place] [address] Progress Note - Hospitalist 01/19/25918 MR#: [id number] Acct: [id number] Name: FRANKLIN WIGGINS Rep #:[id number] : 1965 59 From: Anurag Lucero PCP: YG Pena Status:ADM I N Location: [place] [address] Reason for Visit Reason for Visit: Diagnoses [...] WBCs % 75.6, Fluid Neutrophils 20, Fluid Vbifmfucdbo05, Fluid Monocytes 3, Fluid Macrophages 46, Fluid [...] (Auto) 67.7, Lymph % (Auto) 13.6 L, Kenton % (Auto) 11.0 H, Eos % (Auto) [...] gas. Correlate with surgical history. Reading Location: [id number] Paracentesis Ultrasound 01/18/25 13:08 IMPRESSION: Right lower quadrant marker was applied for paracentesis with drain the fluid volume of 2650 cc. Reading Location: [place] [address] Physical Exam Narrative Seen and examined Discussed [...] WBCs % 75.6, Fluid Neutrophils 20, Fluid Edrpnqcnthj79, Fluid Monocytes 3, Fluid Macrophages 46, Fluid [...] (Auto) 67.7, Lymph % (Auto) 13.6 L, Kenton % (Auto) 11.0 H, Eos % (Auto) [...] 198 H Charges/Coding Visit Charges Inpatient E&M: 82934 Subs Hosp L2 01/19/25 0791 <Electronically signed by Anurag Irene MD> Cosigner Signature (if applicable): CC: ~ Signed [facility] Work Phone: 1(705) 184-625306-18-2025 Radiology Diagnostic study [facility]06-17-2025 Radiology Diagnostic study [facility]06-17-2025 Progress note Author Anurag Irene [facility] Note Date/Time January 18, 2025 1:14 pm [facility] Medical Records Department [address] [place] [address] Progress Note - Hospitalist 01/18/25 1302 MR#: [id number] Acct: [id number] Name: FRANKLIN WIGGINS Rep #:[id number] : 1965 59 From: Anurag Lucero PCP: YG Pena Status:ADM I N Location: [place] [address] Reason for Visit Reason for Visit: Diagnoses [...] (Auto) 68.1, Lymph % (Auto) 14.0 L, Kenton % (Auto) 10.0, Eos % (Auto) 6.1 [...] prophylaxis: SCDs Charges/Coding Visit Charges Inpatient E&M: 63744 Subs Hosp L2 01/18/25 1314 <Electronically signed by Anurag Irene MD> Cosigner Signature (if applicable): CC: ~ Signed [facility] Work Phone: 1(322) 609-898506-17-2025 Consult note Author Mohit Santos [facility] Note Date/Time January 18, 2025 12:[address] 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 Hx Hospitalization Any Problems With Anesthesia No [...] am of surgery tylenol PONV 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: 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 Female HX of Motion Sickness HX of N/V After Surgery Non-Smoker Duration of Surgery greater than 60 minutes Number of Risk Factors PONV Score Height & Weight Height & Weight: Anesthesia: Height & Weight Height 5 ft 9 in 01/17/25 14:51 Weight: 111.3 kg 01/18/25 08:57 Body Mass Index (BMI) 36.2 01/18/25 03:51 Respiratory Assessment Respiratory Assessment - 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: Respiratory Tract Infection Hx - 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 Hx Respiratory Tract Infection No 01/18/25 09:01 STOP Sleep Apnea STOP Sleep Apnea - 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: STOP Sleep Apnea - 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 Hx Hypertension No 01/10/25 10:46 Hx Sleep [...] Tobacco Use History Tobacco Use 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: Tobacco Use 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 Tobacco Use Smoking Status Former smoker 01/10/25 09:20 Hx Tobacco Use Yes 01/09/25 15:31 Years Smoking Packs Smoked per Day Smoking Cessation Date was Yes - quit smoking within 15 01/09/25 15:31 within the last 15 years years Hx Smoking Cessation Date 05/04/24 01/09/25 15:31 Hx Smoking Cessation Counseling Hematologic Medial History Hematologic Hx - 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 Hx of Blood Transfusion No 01/09/25 [...] confused, unrespo /Reproduction History /Reproductive 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: /Reproductive Hx- 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 Hx Now No 01/18/25 09:01 Gestational Age [...] mls @ 15 mls/hr 01/09/25 15:34 IV .[id number] PRN Saline Flush Sodium Chloride 250 mls @ 15 mls/hr 01/09/25 15:34 IV .[id number] PRN Additional IVPB Infusion Sodium Chloride 1,000 mls @ 15 mls/hr 01/18/25 12:45 IV .Q48H [facility] Insulin Glargine 20 unit 01/09/25 22:00 01/17/25 21:05 Insulin Glargine-Yfgn 100 Unit/Ml Pen SC 20 unit QHS KRYSTIN Administration Insulin Glargine 20 unit 01/10/25 10:00 01/18/25 11:31 Insulin Glargine-Yfgn 100 Unit/Ml Pen SC Not Given DAILY KRYSTIN Insulin Human Lispro 0 unit 01/09/25 16:00 01/18/25 11:33 Insulin Lispro 100 Unit/Ml Insuln.Pen SC Not Given ACHS [facility] Protocol Lactulose 10 gm 01/09/25 15:46 01/12/25 14:34 Lactulose 20 Gm/30 Ml Udc PO 10 gm TID PRN Administration constipation Magnesium Chloride 128 mg 01/10/25 10:00 01/18/25 11:31 Magnesium Chloride 64 Mg Delay Rel.Tablet PO Not Given DAILY [facility] Midodrine 10 mg 01/09/25 17:00 01/18/25 12:07 Midodrine Hcl 5 Mg Tablet PO 10 mg TIDCM [facility] Administration Morphine Sulfate 1 mg 01/11/25 13:23 01/17/25 19:56 Morphine 2 Mg/Ml Syringe IV 1 mg Q4H PRN PRN Administration Pain Score 6-10 Ondansetron HCl 4 mg 01/09/25 15:46 01/12/25 13:39 Ondansetron 4 Mg/2 Ml Vial IV 4 mg Q8H PRN PRN Administration NAUSEA/VOMITING Pantoprazole Sodium 20 mg 01/10/25 10:00 01/18/25 11:32 Pantoprazole Sodium 20 Mg Tablet PO Not Given DAILY [facility] Potassium Phos/Sodium Phos 1 packet 01/09/25 22:00 01/18/25 11:32 Na Biphos/Potassium Phosphate Packet PO Not Given BID [facility] Rifaximin 550 mg 01/09/25 22:00 01/17/25 21:06 Rifaximin 550 Mg Tablet PO 550 mg BID [facility] Administration Sodium Bicarbonate 650 mg 01/09/25 22:00 01/18/25 11:32 Sodium Bicarbonate 650 Mg Tablet PO Not Given BID [facility] Sodium Chloride 10 - 40 ml 01/09/25 15:34 01/18/25 08:33 0.9% Saline Lock 10 Ml Syringe IV 20 ml UD PRN Administration SALINE FLUSH Thiamine HCl 100 mg 01/10/25 10:00 01/18/25 11:32 Thiamine Hydrochloride 100 Mg Tablet PO Not Given DAILY [facility] Medical History (Updated 01/17/25 @ [...] MD Cosigner Signature: Date CC: ~ Signed [facility] Work Phone: 1(365) 798-925706-16-2025 Consult note Author Buster Carmichael [facility] Note Date/Time January 17, 2025 4:57 pm [facility] Medical Records Department [address] [place] [address] Consultation 01/17/25 1522 MR#: [id number] Acct: [id number] Name: FRANKLIN WIGGINS Rep #:[id number] : 1965 59 From: Buster brewster MD PCP: YG Pena Status:ADM I N Location: [place] [address] Assessment & Plan Assessment/Plan (1) Spinal stenosis, [...] be 8- 10/10 in severity when moving. [facility] Medical History (Updated 01/17/25 @ 16:52 [...] (Auto) 67.2, Lymph % (Auto) 12.9 L, Kenton % (Auto) 11.5 H, Eos % (Auto) 6.8 H, Baso % (Auto) 0.5, Absolute Neuts (auto) 5.7, Absolute Lymphs (auto) 1.09, Nucleated RBC % 0 01/17/25 06:28: POC Glucose 173 H 01/17/25 11:26: POC Glucose 141 H 01/17/25 1657 <Electronically signed by Buster Carmichael MD> Cosigner Signature (if applicable): CC: YG Elias~ Signed [facility] Work Phone: 1([phone]) 644-341506-16-2025 Progress note Author Anurag Irene [facility] Note Date/Time January 17, 2025 2:32 pm [facility] Medical Records Department [address] [place] [address] Progress Note - Hospitalist 01/17/25 1420 MR#: [id number] Acct: [id number] Name: FRANKLIN WIGGINS Rep #:[id number] : 1965 59 From: Anurag Lucero PCP: YG Pena Status:ADM I N Location: [place] [address] Reason for Visit Reason for Visit: Diagnoses [...] (Auto) 67.2, Lymph % (Auto) 12.9 L, Kenton % (Auto) 11.5 H, Eos % (Auto) [...] prophylaxis: SCDs Charges/Coding Visit Charges Inpatient E&M: 67920 Subs Hosp L2 01/17/25 1432 <Electronically signed by Anurag Irene MD> Cosigner Signature (if applicable): CC: ~ Signed [facility] Work Phone: 1(719) 464-295006-16-2025 [facility]06-15-2025 Progress note Author Cielo Tovar [facility] Note Date/Time January 16, 2025 3:37 pm [facility] Medical Records Department [address] [place] [address] Progress Note 01/16/25 1236 MR#: [id number] Acct: [id number] Name: FRANKLIN WIGGINS Rep #:[id number] : 1965 59 From: Cielo Tovar MD PCP: Josy Elias, PITCH FLAKER-C Status:ADM I N Location: [place] [address] Subjective Subjective Patient seen and examined. He [...] (Auto) 64.9, Lymph % (Auto) 14.6 L, Kenton % (Auto) 12.7 H, Eos % (Auto) [...] at home. Charges/Coding Visit Charges Inpatient E&M: 68790 Subs Hosp L2 01/16/25 1537 <Electronically signed by Cielo Tovar MD> Cielo Tovar MD Cosigner Signature (if applicable): CC: ~ Signed [facility] Work Phone: 1(376) 989-267406-14-2025 Consult note Author Buster Hahn [facility] Note Date/Time January 15, 2025 6:[address] [facility] Medical Records Department [address] [place] [address] Pharmacokinetic/Renal -Consult 01/15/25 1846 MR#: [id number] Acct: [id number] Name: FRANKLIN WIGGINS Rep #:[id number] : 1965 59 From: Buster Lopes [facility] PCP: YG Pena Status:ADM I N Y Location: [place] [address] Consult Antibiotic Management Pharmacy has been consulted [...] Vancomycin (random level 01/16/25 at 0600) 01/15/25 5306 <Electronically signed by Buster Nieves [facility]> Date _ Buster Hahn [facility] Cosigner Signature (if applicable): Date CC: ~ Signed [facility] Work Phone: 1(753) 944-129006-14-2025 Progress note Author Cielo Tovar [facility] Note Date/Time January 15, 2025 6:29 pm [facility] Medical Records Department [address] [place] [address] Progress Note 01/15/25 1321 MR#: [id number] Acct: [id number] Name: FRANKLIN WIGGINS Rep #:[id number] : 1965 59 From: Cielo Tovar MD PCP: Josy Elias PITCH FLAKER-C Status:ADM I N Location: [place] [address] Subjective Subjective Patient seen and examined. He [...] (Auto) 65.6, Lymph % (Auto) 13.2 L, Kenton % (Auto) 13.6 H, Eos % (Auto) [...] at multiple levels, as described. Reading Location: [place] [address] Physical Exam Const alert, oriented x3 and [...] at home. Charges/Coding Visit Charges Inpatient E&M: 31575 Subs Hosp L2 01/15/252 <Electronically signed by Cielo Tovar MD> Cielo Tovar MD Cosigner Signature (if applicable): CC: ~ Signed [facility] Work Phone: 1([phone]) 796-513106-13-2025 Consult note Author Andreia Carvalho [facility] Note Date/Time January 14, 2025 8:[address] [facility] Medical Records Department [address] [place] [address] Pharmacokinetic/Renal -Consult 01/14/252002 MR#: [id number] Acct: [id number] Name: FRANKLIN WIGGINS Rep #:[id number] : 1965 59 From: Andreia Carvalho PCP: YG Pena Status:ADM I N Y Location: [place] [address] Consult Antibiotic Management Pharmacy has been consulted [...] Signature (if applicable): Date CC: ~ Signed [facility] Work Phone: 1([phone]) 391-212306-13-2025 Progress note Author Cielo Tovar [facility] Note Date/Time January 14, 2025 5:19 pm [facility] Medical Records Department [address] [place] [address] Progress Note 01/14/25 170 MR#: [id number] Acct: [id number] Name: FRANKLIN WIGGINS Rep #:[id number] : 1965 59 From: Cielo Tovar MD PCP: Josy Elias PITCH FLAKER-C Status:ADM I N Location: [place] [address] Subjective Subjective Patient seen and examined. He [...] (Auto) 65.3, Lymph % (Auto) 13.5 L, Kenton % (Auto) 14.3 H, Eos % (Auto) [...] at multiple levels, as described. Reading Location: [place] [address] Thoracic Spine MRI 01/13/25 10:30 IMPRESSION: Abnormal marrow signal at T12 and L1. No acute compression deformity identified. Can not exclude metastatic involvement of these 2 vertebral bodies. Degenerative changes in the remainder of the lumbar spine. There is mild spinal stenosis at the level of T10-T11 and T11-T12. The patient could not tolerate postcontrast imaging. There is no cord compression Reading Location: [facility] Chest CT 01/14/25 08:06 IMPRESSION: 1. Partially visualized severe degenerative changes of T11-T12 with areas of erosive changes and lytic lesions. Metastasis can not be excluded. 2. Cirrhosis and ascites. 3. Mild lung emphysema. No suspicious nodules or focal consolidation. Reading Location: [facility] Physical Exam Const alert, oriented x3 and [...] medically stable. Charges/Coding Visit Charges Inpatient E&M: 12710 Subs Hosp L2 01/14/25 7837 <Electronically signed by Cielo Tovar MD> Cielo Tovar MD Cosigner Signature (if applicable): CC: ~ Signed [facility] Work Phone: 1(726) 620-968306-13-2025 Radiology Diagnostic study [facility]06-12-2025 Progress note Author [facility] Note Date/Time January 13, 2025 6:28 pm [facility] Medical Records Department [address] [place] [address] Progress Note 01/13/25 1517 MR#: [id number] Acct: [id number] Name: FRANKLIN WIGGINS Rep #:[id number] : 1965 59 From: Cielo Tovar MD PCP: YG Pena Status:ADM I N Location: [place] [address] Subjective Subjective Patient seen and examined. He [...] (Auto) 65.6, Lymph % (Auto) 14.4 L, [place]on % (Auto) 13.7 H, Eos % (Auto) [...] medically stable. Charges/Coding Visit Charges Inpatient E&M: 15903 Subs Hosp L2 01/13/251827 <Electronically signed by Cielo Tovar MD> Cielo Tovar MD Cosigner Signature (if applicable): CC: ~ Signed [facility] Work Phone: 1([phone]) 169-735106-12-2025 Consult note Author Francheska Montoya [facility] Note Date/Time January 13, 2025 9:[address] [facility] Medical Records Department [address] [place] [address] Pharmacokinetic/Renal -Consult 01/13/25 0934 MR#: [id number] Acct: [id number] Name: FRANKLIN WIGGINS Rep #:[id number] : 1965 59 From: Francheska Mcfarlane PCP: YG Pena Status:ADM I N Y Location: [place] [address] Consult Antibiotic Management Pharmacy has been consulted to manage selected antibiotic: Vancomycin Type of Intervention Type of Consult: Follow-up Suspected Infection Suspected Infection: Sepsis Prior Doses of Antibiotics Prior Doses of Antibiotics Received/Current Regimen: 01/12/25 @ 1804 01/13/43 @ 0725 Labs Labs: Sodium 132 mmol/L (133-145) L 06/12/25 06:08 Potassium 3.1 mmol/L (3.3-5.1) L 01/13/25 [...] Signature (if applicable): Date CC: ~ Signed [facility] Work Phone: 1(607) 325-134606-11-2025 Progress note Author Cielo Tovar [facility] Note Date/Time January 12, 2025 4:51 pm [facility] Medical Records Department [address] [place] [address] Progress Note 01/12/25 1646 MR#: [id number] Acct: [id number] Name: FRANKLIN WIGGINS Rep #:[id number] : 1965 59 From: Cielo Tovar MD PCP: YG Pena Status:ADM I N Location: [place] [address] Subjective Subjective Patient seen and examined. He [...] (Auto) 68.2, Lymph % (Auto) 11.6 L, [place]on % (Auto) 12.1 H, Eos % (Auto) [...] his facility. Charges/Coding Visit Charges Inpatient E&M: 94692 Subs Hosp L2 01/12/25 1651 <Electronically signed by Cielo Tovar MD> Cielo Tovar MD Cosigner Signature (if applicable): CC: ~ Signed [facility] Work Phone: 1([phone]) 978-487306-11-2025 Consult note Author Dilcia Vanessa [facility] Note Date/Time January 11, 2025 10:[address] [facility] Medical Records Department [address] [place] [address] Pharmacokinetic/Renal -Consult 01/11/251942 MR#: [id number] Acct: [id number] Name: FRANKLIN WIGGINS Rep #:[id number] : 1965 59 From: Dilcia Vanessa PCP: YG Pena Status:ADM I N Y Location: [place] [address] Consult Antibiotic Management Pharmacy has been consulted [...] Dilcia montalvo> Date _ Dilcia Vanessa 01/11/25 416 <Electronically signed by Yaritza Lucero O> Cosigner Signature (if applicable): Date Yaritza Leo DO CC: ~ Signed [facility] Work Phone: 1(250) 613-621406-10-2025 Progress note Author Cielo Tovar [facility] Note Date/Time January 11, 2025 5:51 pm [facility] Medical Records Department [facility] [place] [place] [address] Progress Note 01/11/25 1510 MR#: [id number] Acct: [id number] Name: FRANKLIN WIGGINS Rep #:[id number] : 1965 59 From: Cielo Tovar MD PCP: Josy Elias PITCH FLAKER-C Status:ADM I N Location: [place] [address] Subjective Subjective Patient seen and examined. He [...] % (Auto) Cancelled, Lymph % (Auto) Cancelled, [place] % (Auto) Cancelled, Eos % (Auto) Cancelled, [...] Drop Cells Cancelled, Ovalocytes Cancelled, Stomatocytes Cancelled, [place] Bodies Cancelled, [place] Cells Cancelled, Bite Cells Cancelled, Crenated Cell [...] (Auto) 69.6, Lymph % (Auto) 12.6 L, Kenton % (Auto) 11.8 H, Eos % (Auto) [...] of anemia Charges/Coding Visit Charges Inpatient E&M: 21623 Subs Hosp L2 01/11/25 081 <Electronically signed by Cielo Tovar MD> Cielo Tovar MD Cosigner Signature (if applicable): CC: ~ Signed [facility] Work Phone: 1([phone] 364-523206-10-2025 Consult note Author Jefferson Malave [facility] Note Date/Time January 11, 2025 4:41 pm [facility] Medical Records Department [address] [place] [address] Consultation - Surgical 01/11/25 1634 MR#: [id number] Acct: [id number] Name: FRANKLIN WIGGINS Rep #:[id number] : 1965 59 From: Jefferson Malave MD PCP: Josy Elias PITCH FLAKER-C Status:ADM I N Location: [place] [address] Assessment & Plan Assessment/Plan (1) Umbilical hernia: [...] findings on CT consistent with portal hypertension. [facility] Medical History (Updated 01/11/25 @ 16:41 [...] % (Auto) Cancelled, Lymph % (Auto) Cancelled, Kenton % (Auto) Cancelled, Eos % (Auto) Cancelled, [...] Drop Cells Cancelled, Ovalocytes Cancelled, Stomatocytes Cancelled, [place] Powder Bodies Cancelled, Paloma Cells Cancelled, Bite Cells [...] (Auto) 69.6, Lymph % (Auto) 12.6 L, Kenton % (Auto) 11.8 H, Eos % (Auto) [...] 48 hours. Charges/Coding Visit Charges Inpatient E&M: 18991 Init Hosp L3 01/11/25 1641 <Electronically signed by Jefferson Malave MD> Cosigner Signature (if applicable): CC: YG Elias~ Signed [facility] Work Phone: [phone]) 844-893706-10-2025 Progress note Author Bola Meraz [facility] Note Date/Time January 11, 2025 9:07 am [facility] Medical Records Department [address] [place] [address] Progress Note - Fountain Pen Nibs Inspector 01/11/25 0722 MR#: [id number] Acct: [id number] Name: FRANKLIN WIGGINS Rep #:[id number] : [...] scheduled midodrine. This note was generated with NxTheraation software. It may contain incorrectwords, spelling, and [...] % (Auto) Cancelled, Lymph % (Auto) Cancelled, Kenton % (Auto) Cancelled, Eos % (Auto) Cancelled, [...] Drop Cells Cancelled, Ovalocytes Cancelled, Stomatocytes Cancelled, [place] Powder Bodies Cancelled, Paloma Cells Cancelled, Bite Cells [...] (Auto) 69.6, Lymph % (Auto) 12.6 L, Kenton % (Auto) 11.8 H, Eos % (Auto) [...] hypertension. No liver masses identified. Reading Location: [facility] Physical Exam Const alert, oriented x3 and [...] flat affect Charges/Coding Visit Charges Inpatient E&M: 94227 Subs Hosp L2 06/10/25 0907 <Electronically signed by Bola Meraz DO> Cosigner Signature (if applicable): CC: ~ Signed [facility] Work Phone: 1(544) 447-955206-10-2025 Consult note Author Boone Garcia [facility] Note Date/Time January 11, 2025 2:[address] [facility] Medical Records Department [address] [place] [address] Pharmacokinetic/Renal -Consult 01/11/25 0211 MR#: [id number] Acct: [id number] Name: FRANKLIN WIGGINS Rep #:[id number] : [...] Signature (if applicable): Date CC: ~ Signed [facility] Work Phone: [phone]) [phone] Progress note Author Cielo [facility] Note Date/Time January 10, 2025 6:23p [facility] Medical Records Department [address] [place] [address] Progress Note 01/10/251815 MR#: [id number] Acct: [id number] Name: FRANKLIN WIGGINS Rep #:[id number] : 1965 59 From: Cielo Tovar MD PCP: YG Pena Status:ADM I N Location: ICU CVICU 1-1 Subjective Subjective Patient seen and examined. [...] % (Auto) Cancelled, Lymph % (Auto) Cancelled, Kenton % (Auto) Cancelled, Eos % (Auto) Cancelled, [...] Drop Cells Cancelled, Ovalocytes Cancelled, Stomatocytes Cancelled, [place] Powder Bodies Cancelled, Paloma Cells Cancelled, Bite Cells [...] 76.1 H, Lymph % (Auto) 8.8 L, Kenton % (Auto) 8.2, Eos % (Auto) 5.9 [...] prophylaxis: Heparin Charges/Coding Visit Charges Inpatient E&M: 56844 [facility] Hosp L3 01/10/25 1823 <Electronically signed by Cielo Tovar MD> Cielo Tovar MD Cosigner Signature (if applicable): CC: ~ Signed [facility] Work Phone: 1([phone]) 509-480406-09-2025 Progress note Author Bola Meraz [facility] Note Date/Time January 10, 2025 8:52a m [facility] Medical Records Department [address] [place] [address] Progress Note - Fountain Pen Nibs Inspector 01/10/25 0700 MR#: [id number] Acct: [id number] Name: FRANKLIN WIGGINS Rep #:[id number] : [...] scheduled midodrine. This note was generated with Gotcha Ninj[employer] dictation software. It may contain incorrectwords, spelling, [...] 80.6 H, Lymph % (Auto) 7.2 L, Kenton % (Auto) 6.7, Eos % (Auto) 4.2, [...] % (Auto) Cancelled, Lymph % (Auto) Cancelled, Kenton % (Auto) Cancelled, Eos % (Auto) Cancelled, [...] Drop Cells Cancelled, Ovalocytes Cancelled, Stomatocytes Cancelled, [place] Powder Bodies Cancelled, Paloma Cells Cancelled, Bite Cells [...] 76.1 H, Lymph % (Auto) 8.8 L, Kenton % (Auto) 8.2, Eos % (Auto) 5.9 [...] hypertension. No liver masses identified. Reading Location: [facility] Physical Exam Const alert, oriented x3 and [...] flat affect Charges/Coding Visit Charges Inpatient E&M: 58026 Subs Hosp L3 01/10/25 0852 <Electronically signed by Bola Meraz DO> Cosigner Signature (if applicable): CC: ~ Signed [facility] Work Phone: [phone]) 338-924706-08-2025 Consult note Author Lupillo Robbins [facility] Note Date/Time January 09, 2025 8:03p m [facility] Medical Records Department [facility] [place] [address] Consultation - Fountain Pen Nibs Inspector 01/09/25 1836 MR#: [id number] Acct: [id number] Name: FRANKLIN WIGGINS Rep #:[id number] : 1965 59 From: Lupillo Robbins MD PCP: Josy Elias PITCH FLAKER-C Status:ADM I N Location: ICU CVICU20 1-1 [...] mls @ 15 mls/hr 01/09/25 15:34 IV .[id number] PRN Saline Flush Sodium Chloride 250 mls @ 15 mls/hr 01/09/25 15:34 IV .[id number] PRN Additional IVPB Infusion Norepinephrine Bitartrate 8 mg 250 mls @ 9.375 mls/hr 01/09/25 15:46 01/09/2515:56 / Sodium Chloride CONT INF Not Given .[id number] [facility] Protocol 5 MCG/MIN Vancomycin IV-PHARMACY TO DOSE 500 mls @ 250 mls/hr 01/09/25 15:46 1 each/ Sodium Chloride IV PRN PRN Rx to Dose Protocol Meropenem 1 gm/ Sodium 120 mls @ 33 mls/hr 01/09/25 22:00 Chloride IV Q12 KRYSTIN Vancomycin HCl 1,000 mg in 200 mls @ 200 mls/hr 01/10/25 02:00 Vancomycin IV Q12H [facility] Insulin Glargine 20 unit 01/09/25 22:00 Insulin Glargine-Yfgn 100 Unit/Ml Pen SC QHS [facility] Insulin Glargine 20 unit 01/10/25 10:00 Insulin Glargine-Yfgn 100 Unit/Ml Pen SC DAILY [facility] Insulin Human Lispro 0 unit 01/09/25 16:00 01/09/25 16:27 Insulin Lispro 100 Unit/Ml Insuln.Pen SC Not Given ACHS [facility] Protocol Lactulose 10 gm 01/09/25 15:46 Lactulose 20 Gm/30 Ml Udc PO TID PRN constipation Magnesium Chloride 128 mg 01/10/25 10:00 Magnesium Chloride 64 Mg Delay Rel.Tablet PO DAILY [facility] Midodrine 10 mg 01/09/25 17:00 01/09/25 17:10 Midodrine Hcl 5 Mg Tablet PO 10 mg TIDCM [facility] Administration Ondansetron HCl 4 mg 01/09/25 15:46 Ondansetron 4 Mg/2 Ml Vial IV Q8H PRN PRN NAUSEA/VOMITING Pantoprazole Sodium 20 mg 01/10/25 10:00 Pantoprazole Sodium 20 Mg Tablet PO DAILY [facility] Potassium Phos/Sodium Phos 1 packet 01/09/25 22:00 Na Biphos/Potassium Phosphate Packet PO BID [facility] Rifaximin 550 mg 01/09/25 22:00 Rifaximin 550 Mg Tablet PO BID [facility] Sodium Bicarbonate 650 mg 01/09/25 22:00 Sodium Bicarbonate 650 Mg Tablet PO BID [facility] Sodium Chloride 10 - 40 ml 01/09/25 15:34 0.9% Saline Lock 10 Ml Syringe IV UD PRN SALINE FLUSH Thiamine HCl 100 mg 01/10/25 10:00 Thiamine Hydrochloride 100 Mg Tablet PO DAILY [facility] Vancomycin Protocol 1 lab 01/11/25 00:30 Vancomycin Trough/Random Due 01/11/25 02:30 DAILY [facility] Zinc Sulfate 50 mg 01/10/25 10:00 Zinc Sulfate 50 Mg Zinc (220 Mg) Oral Capsule PO DAILY [facility] Lab / Micro Data 01/09/25 10:40 01/09/25 [...] 80.6 H, Lymph % (Auto) 7.2 L, Kenton % (Auto) 6.7, Eos % (Auto) 4.2, [...] hypertension. No liver masses identified. Reading Location: [facility]- Assessment and Plan . Assessment and plan: [...] Signature (if applicable): CC: YG Elias~ Signed [facility] Work Phone: [phone] 727-901206-08-2025 Consult note Author Peter Carvajal [facility] Note Date/Time January 09, 2025 5:42p m [facility] Medical Records Department [address] [place] [address] Pharmacokinetic/Renal -Consult 01/09/25 1602 MR#: [id number] Acct: [id number] Name: FRANKLIN WIGGINS Rep #:[id number] : [...] Date Yaritza Leo DO CC: ~ Signed [facility] Work Phone: [phone] History and physical note Author Yaritza Leo [facility] Note Date/Time January 09, 2025 5:41p m [facility] Medical Records Department [address] [place] [address] H&P Exam - Hospitalist 01/09/25 1408 MR#: [id number] Acct: [id number] Name: FRANKLIN WIGGINS Rep #:[id number] : 1965 59 From: Yaritza Leo DO PCP: YG Pena Status:ADM I N Location: ICU CVICU20 1-1 HPI - General General Date of Admission: 01/09/25 Date of Service: 01/09/25 Chief Complaint: Suprapubic abdominal pain HPI Narrative FRANKLIN WIGGINS, is a 59 M who presented to the emergency department [facility] on 01/09/2025 due to back [...] medical history and currently resides at an [facility]. He denies any fever or [...] a repeat of 89/59 and pulse ox [id number]% on room air. CBC showed a leukocytosis [...] he was treated with 30 cc/kg bolus. [facility] Medical History (Updated 01/09/25 @ 17:18 [...] 80.6 H, Lymph % (Auto) 7.2 L, Kenton % (Auto) 6.7, Eos % (Auto) 4.2, [...] masses identified. [facility] Assessment & Plan Assessment/Plan (1) Sepsis: [...] currently 102/60) Charges/Coding Visit Charges Inpatient E&M: 35230 Init Hosp L3 01/09/25 5732 <Electronically signed by Yaritza Leo DO> Cosigner Signature (if applicable): CC: YG Elias; Dr. Yaritza Leo DO~ Signed [facility] Work Phone: [phone]) 233-447906-08-2025 Discharge summary Author Breann Mendez [facility] Note Date/Time January 09, 2025 4:26p m [facility] Medical Records Department [address] [place] [address] Emergency Department Summary 01/09/25 MR#: [id number] Acct: [id number] Name: FRANKLIN WIGGINS Rep #:[id number] : 1965 59 From: Breann Mendez DO PCP: YG Pena Status:ADM I N Location: ICU CVICU20 1- HPI HPI - GI History of Present [...] denies urinary symptoms. 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 Patient has history of cirrhosis and history of diabetes as well as high cholesterol. Patient has had prior paracentesis. Currently rates his pain about a 5 out of 10. He does not want thing for pain currently. [facility] Medical History Weakness Diarrhea [...] 80.6 H Lymph % (Auto) 7.2 L Kenton % (Auto) 6.7 Eos % (Auto) 4.2 [...] Clarity Turbid Urine pH 6.0 Ur Specific [place] 1.015 Urine Protein 500 H Urine Glucose [...] hypertension. No liver masses identified. Reading Location[facility] Critical Care Time Critical care time (excluding procedures): 30-74 minutes, Including time spent:,Discussing w/Patient &/or Family/Machine Repairer Maintenance, Discussing w/Consultants, ArrangingAdmission or Transfer, Performing Direct [...] NP-C [Primary Care Provider] - Print Language: Nepalese Disposition Disposition: Acute Care Hospital [facility] What to do if you have Problems For any increased pain, shortness of breath, bleeding, nausea or vomiting, chestpain, or any unexpected problems, contact your Primary Care Provider. Call [facility] ([phone]) or report to the closest Emergency Room. Call 911 if necessary. 01/09/25 1661 <Electronically signed by Breann Mendez DO> Cosigner Signature (if applicable): CC: YG Elias ~ Signed [facility] Work Phone: 1([phone]) 532-838606-08-2025 Radiology Diagnostic study [facility]06-04-2025 Consult note Author Kourtney Reece [facility] Note Date/Time January 05, 2025 5:01p m [facility] Medical Records Department [address] [place] [address] Counseling Note - Pharmacy 01/05/25 1447 MR#: [id number] Acct: [id number] Name: FRANKLIN WIGGINS Rep #:[id number] : 1965 59 From: Kourtney Reece PCP: YG Pena Status:ADM I N Y Location: [place] [address] [place] Med Reconciliation Pharmacy Service has performed discharge [...] solution (Constulose) 15 ml PO TID PRN [id number]/27/25 L.acidophil,salivari-Bifido bifidum-Strep thermoph 175 mg capsule 1 [...] mL 01/05/25 01/05/25 1447 <Electronically signed by oKurtney Reece> Date _ Kourtney Reece Cosigner Signature (if applicable): Date CC: ~ Signed [facility] Work Phone: [phone]) 382-402306-04-2025 Discharge summary Author Hill Acuña [facility] Note Date/Time January 05, 2025 2:07p yoahnnes [facility] Medical Records Department [address] [place] [address] Discharge Summary 01/05/25 1404 MR#: [id number] Acct: [id number] Name: FRANKLIN WIGGINS Rep #:[id number] : 1965 59 From: Hill Acuña MD PCP: YG Pena Status:ADM I N Location: [place] [address] Providers Date of Admission: 01/02/25 Date of [...] Secondary to multiple medical comorbidities. [facility] had been recommended to patient during previous hospitalization he did decline. I had a discussion with patient he is amenable to entertaining the idea of going to [facility] facility. Subsequently requested for PT OT eval and transition social worker to assist with discharge planning ? 01/03/2025; plan is to discuss with case management regarding disposition ? 01/05/2025; awaiting insurance pre-CERT prior to transfer to [facility] facility ? Patient was discharged to [facility] facility once insurance. 2. Severe hypokalemia ? [...] mg) tablet 50 mg PO DAILY supplement 04/20/25 ascorbic acid (vitamin C) 500 mg tablet 500 mg PO BID vitamin #60 tabs 11/25/24 midodrine 10 mg tablet 10 mg PO TID blood pressure 1 month #90 tabs 11/25/24 lactulose 10 gram/15 mL oral solution (Constulose) 15 ml PO TID PRN [id number]/27/25 L.acidophil,salivari-Bifido bifidum-Strep thermoph 175 mg capsule 1 [...] (Auto) 69.1, Lymph % (Auto) 13.4 L, Kenton % (Auto) 11.6 H, Eos % (Auto) [...] Assisted Facility Charges/Coding Visit Charges Inpatient E&M: 47703 Disch Hosp >30min 01/05/25 1407 <Electronically signed by Hill Acuña MD> Cosigner Signature (if applicable): CC: YG Elias; Dr. Hill Acuña MD~ Signed [facility] Work Phone: [phone] 322-152806-04-2025 Discharge summary Author Hill Acuña [facility] Note Date/Time January 05, 2025 2:04p m [facility] Medical Records Department [address] [place] [address] Transfer to Extended Care MR#: [id number] Acct: [id number] Name: FRANKLIN WIGGINS Rep #:[id number] : 1965 59 From: Hill Acuña MD PCP: BRITTANY PenaC Status:ADM I N Certification of patient admission REQUIRED AT TIME OF ADMISSION. I CERTIFY THAT POST-HOSPITAL ECF SERVICES ARE REQUIRED TO BE GIVEN ON AN IN-PATIENT BASIS BECAUSE OF THE ABOVE NAMED PATIENT'S NEED FOR CUSTODIAL CARE ON A CONTINUING BASIS FOR THE CONDITION(S) FOR WHICH HE/SHE WAS RECEIVING IN-PATIENT HOSPITAL SERVICES PRIOR TO HIS/HER TRANSFER TO THE ECF. 01/05/25 1404<Electronically signed by Hill Acuña MD> [...] Secondary to multiple medical comorbidities. Transfer to [facility] had been recommended to patient during previous hospitalization he did decline. I had a discussion with patient he is amenable to entertaining the idea of going to [facility] facility. Subsequently requested for PT OT eval and transition social worker to assist with discharge planning ? 01/03/2025; plan is to discuss with case management regarding disposition ? 01/05/2025; awaiting insurance pre-CERT prior to transfer to [facility] facility 2. Severe hypokalemia ? Patient potassium [...] Acuña MD> Cosigner Signature (if applicable): CC: PITCH FLAKER-C Josy Elias; Dr. Buster Fuchs MD ~ [facility] Work Phone: [phone] Progress note Author Hill Acuña [facility] Note Date/Time January 05, 2025 11:01 am [facility] Medical Records Department [address] [place] [address] Progress Note - Hospitalist 01/05/25 0737 MR#: [id number] Acct: [id number] Name: FRANKLIN WIGGINS Rep #:[id number] : 1965 59 From: Hill Acuña MD PCP: YG Pena Status:ADM I N Location: [place] [address] Reason for Visit Reason for Visit: Diagnoses Acute kidney failure, unspecified (01/02/25) Unspecified fall, initial encounter (01/02/25) Subjective Subjective Patient seen blood glucose control not optimal further adjustment made to patient insulin regimen. Patient awaiting insurance precertification prior to transfer to [facility] facility Objective Data Objective Data Vital Signs: [...] (Auto) 69.1, Lymph % (Auto) 13.4 L, Kenton % (Auto) 11.6 H, Eos % (Auto) [...] Secondary to multiple medical comorbidities. Transfer to [facility] facility had been recommended to patient during previous hospitalization he did decline. I had a discussion with patient he is amenable to entertaining the idea of going to [facility] facility. Subsequently requested for PT OT eval and transition social worker to assist with discharge planning ? 01/03/2025; plan is to discuss with case management regarding disposition ? 01/05/2025; awaiting insurance pre-CERT prior to transfer to [facility] facility 2. Severe hypokalemia ? Patient potassium [...] SCDs for Charges/Coding Visit Charges Inpatient E&M: 21154 Subs Hosp L2 01/05/25 1101 <Electronically signed by Hill Acuña MD> Cosigner Signature (if applicable): CC: ~ Signed [facility] Work Phone: 1(852) 802-864106-03-2025 Progress note Author Hill Acuña [facility] Note Date/Time January 04, 2025 10:18 am [facility] Medical Records Department [address] [place] [address] Progress Note - Hospitalist 01/04/25 1014 MR#: [id number] Acct: [id number] Name: FRANKLIN WIGGINS Rep #:[id number] : 1965 59 From: Hill Acuña MD PCP: YG Pena Status:ADM I N Location: [place] [address] Reason for Visit Reason for Visit: Diagnoses [...] Secondary to multiple medical comorbidities. Transfer to [facility] facility had been recommended to patient during previous hospitalization he did decline. I had a discussion with patient he is amenable to entertaining the idea of going to [facility] facility. Subsequently requested for PT OT eval and transition social worker to assist with discharge planning [...] SCDs for Charges/Coding Visit Charges Inpatient E&M: 83401 Subs Hosp L2 01/04/25 1018 <Electronically signed by Hill Acuña MD> Cosigner Signature (if applicable): CC: ~ Signed [facility] Work Phone: 1([phone]) 630-590206-02-2025 Progress note Author Hill Acuña [facility] Note Date/Time January 03, 2025 9:52a m [facility] Medical Records Department [address] [place] [address] Progress Note - Hospitalist 01/03/25 0839 MR#: [id number] Acct: [id number] Name: FRANKLIN WIGGINS Rep #:[id number] : 1965 59 From: Hill Acuña MD PCP: YG Pena Status:ADM I N Location: [place] [address] Reason for Visit Reason for Visit: Diagnoses [...] (Auto) 67.5, Lymph % (Auto) 13.9 L, Kenton % (Auto) 11.5 H, Eos % (Auto) [...] Secondary to multiple medical comorbidities. Transfer to [facility] facility had been recommended to patient during previous hospitalization he did decline. I had a discussion with patient he is amenable to entertaining the idea of going to [facility] facility. Subsequently requested for PT OT eval and transition social worker to assist with discharge planning [...] SCDs for Charges/Coding Visit Charges Inpatient E&M: 04168 Subs Hosp L2 01/03/25 0952 <Electronically signed by Hill Acuña MD> Cosigner Signature (if applicable): CC: ~ Signed [facility] Work Phone: 1([phone]) 223-697306-01-2025 Progress note Author Hill Acuña [facility] Note Date/Time January 02, 2025 9:58a m [facility] Medical Records Department [address] [facility] [place] [address] Progress Note - Hospitalist 01/02/25 0736 MR#: [id number] Acct: [id number] Name: FRANKLIN WIGGINS Rep #:[id number] : 1965 59 From: Hill Acuña MD PCP: Josy Tannhof, PITCH FLAKER-C Status:ADM I N Location: [place] [address] Reason for Visit Reason for Visit: Diagnoses Acute kidney failure, unspecified (01/02/25) Unspecified fall, initial encounter (01/02/25) Subjective Subjective Patient is a 59-year-old gentleman with recent multiple hospitalization presented to the emergency department with progressive generalized weakness and vomiting. This was apparently his third visit to the ED within a week. Patienthad been encouraged to be discharged to a [facility] facility he however declined. Objective Data Objective [...] (Auto) 68.0, Lymph % (Auto) 12.2 L, [place]on % (Auto) 11.9 H, Eos % (Auto) [...] insufficiency fracture again noted, unchanged. Reading Location: [facility] Brain CT 01/02/25 03:55 IMPRESSION: No intracranial hemorrhage, mass effect or calvarial fracture. Moderate volume loss, atrophy again noted. Mild left maxillary sinus disease appears mildly decreased from the prior study. Reading Location: [facility] Cervical Spine CT 01/02/25 03:55 IMPRESSION: No fracture or malalignment. Multilevel spondylosis/discogenic change greatest at C5-6 Reading Location: [facility] Physical Exam Narrative GENERAL: cooperative HEENT: [...] Secondary to multiple medical comorbidities. Transfer to [facility] facility had been recommended to patient during previous hospitalization he did decline. I had a discussion with patient he is amenable to entertaining the idea of going to [facility] facility. Subsequently requested for PT OT eval and transition social worker to assist with discharge planning [...] documentation, 38Minutes Charges/Coding Visit Charges Inpatient E&M: 01976 PROLNG IP/OBS E/M EA 15 MIN Multi Select Codes Visit Charges Visit Charges: 73170 PROLNG IP/OBS E/M EA 15 MIN 01/02/25 0958 <Electronically signed by Hill Acuña MD> Cosigner Signature (if applicable): CC: ~ Signed [facility] Work Phone: [phone] 647-580706-01-2025 History and physical note Author Buster Fuchs [facility] Note Date/Time January 02, 2025 6:44a m [facility] Medical Records Department [address] [facility] [place] [address] H&P Exam - Hospitalist 01/02/25 0556 MR#: [id number] Acct: [id number] Name: FRANKLIN WIGGINS Rep #:[id number] : 1965 59 From: Buster duarte MD PCP: BRITTANY PenaC Status:ADM I N Location: [place] [address] HPI - General General Date of Admission: [...] that time he was transferred to [facility] 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 Was not considered to be a liver transplant candidate and was placed on anticoagulation. He has had a couple of readmissions for weakness and debility. [place] to possibly have aUTI given a staghorn [...] Heis receiving potassium infusion in the ER. [facility] Medical History Weakness Diarrhea Sepsis Acidosis, [...] (Auto) 68.0, Lymph % (Auto) 12.2 L, Kenton % (Auto) 11.9 H, Eos % (Auto) [...] insufficiency fracture again noted, unchanged. Reading Location: [facility] Brain CT 01/02/25 03:55 IMPRESSION: No intracranial hemorrhage, mass effect or calvarial fracture. Moderate volume loss, atrophy again noted. Mild left maxillary sinus disease appears mildly decreased from the prior study. Reading Location: [facility] Cervical Spine CT 01/02/25 03:55 IMPRESSION: No fracture or malalignment. Multilevel spondylosis/discogenic change greatest at C5-6 Reading Location: [facility] Assessment & Plan Assessment/Plan (1) Fall: [...] once verified Charges/Coding Visit Charges Inpatient E&M: 08943 Init Hosp L2 01/02/25 0644 <Electronically signed by Buster Fuchs MD> Cosigner Signature (if applicable): CC: YG Elias; Dr. Bsuter Fuchs MD~ Signed [facility] Work Phone: 1(558) 752-358006-01-2025 Discharge summary Author Roddy Reeves [facility] Note Date/Time January 02, 2025 6:00a m [facility] Medical Records Department [address] [place] [address] Emergency Department Summary 01/02/25 MR#: [id number] Acct: [id number] Name: FRANKLIN WIGGINS Rep #:[id number] : 1965 59 From: Roddy Reeves DO PCP: Josy Elias NP-C Status:REG E [...] was here recently and was sent home. [facility] Medical History Weakness Diarrhea [...] mg tablet (Xifaxan) 550 mg PO BID [facility] ea #60 tabs 09/02/24 11/28/24 Rx [...] (Auto) 68.0 Lymph % (Auto) 12.2 L Kenton % (Auto) 11.9 H Eos % (Auto) [...] Clarity Turbid Urine pH 6.0 Ur Specific [place] 1.015 Urine Protein 100 H Urine Glucose [...] insufficiency fracture again noted, unchanged. Reading Location: [facility] Brain CT 01/02/25 03:55 IMPRESSION: No intracranial hemorrhage, mass effect or calvarial fracture. Moderate volume loss, atrophy again noted. Mild left maxillary sinus disease appears mildly decreased from the prior study. Reading Location: [facility] Cervical Spine CT 01/02/25 03:55 IMPRESSION: No fracture or malalignment. Multilevel spondylosis/discogenic change greatest at C5-6 Reading Location: [facility] Discharge Plan Triage Chief Complaint: Weakness [...] NP-C [Primary Care Provider] - Print Language: Nepalese Disposition Disposition: Acute Care Hospital [facility] What to do if you have Problems For any increased pain, shortness of breath, bleeding, nausea or vomiting, chestpain, or any unexpected problems, contact your Primary Care Provider. Call [facility] ([phone]) or report to the closest Emergency Room. Call 911 if necessary. 01/02/25 0600 <Electronically signed by Roddy Reeves DO> Cosigner Signature (if applicable): CC: YG Elias ~ Signed [facility] Work Phone: 1(474) 828-183406-01-2025 Radiology Diagnostic study [facility]06-01-2025 Radiology Diagnostic study [facility]06-01-2025 Radiology Diagnostic study [facility] 12-30-2024 Radiology Diagnostic study [facility]05-25-2025 Radiology Diagnostic study [facility]05-14-2025 Radiology Diagnostic study [facility]04-20-2025 Radiology Diagnostic study [facility]04-17-2025 Telephone encounter Note* Telephone Encounter - [...] will be scheduled to follow up with [facility] [employer]. JEANNINE asked that Dr. Mosley inform this pt that he can return to our transplant center again and be re-evaluated once he has addressed his prohibitive psychosocial concerns (lack of caregivers, unstable housing, unstable finances, unreliable transportation). Dr. Mosley agreed to do so. [facility] Work Phone: 1([phone]) 266-164104-17-2025 Miscellaneous Notes* Telephone Encounter - Marah Arauz [...] will be scheduled to follow up with [facility] [employer]. JEANNINE asked that Dr. Mosley inform this pt that he can return to our transplant center again and be re-evaluated once he has addressed his prohibitive psychosocial concerns (lack of caregivers, unstable housing, unstable finances, unreliable transportation). Dr. Mosley agreed to do so. documented in this encounterOhio[facility] Hospital04-17-2025 Telephone encounter Note * Telephone Encounter [...] Jeremi Abreu RN, BSN Liver Contact Lens Inspector [facility] Work Phone: 1([phone]) 895-450804-17-2025 Miscellaneous Notes* Telephone Encounter - Jeremi Abreu [...] Jeremi Abreu RN, BSN Liver Contact Lens Inspector documented in this encounterOhiohealth Mansfield Hospital04-17-2025 NoteLouis [facility]-17-2025 NoteLouis [facility]04-16-2025 NoteLouis [facility]04-16-2025 NoteLouis [facility]04-16-2025 Note [facility]04-15-2025 NoteLouis [facility]04-15-2025 NoteLouis [facility]04-15-2025 NoteLouis [facility] 11-15-2024 NoteLouis [facility]04-14-2025 NoteLouis [facility]04-14-2025 NoteLouis [facility]04-14-2025 History of Present illness Narrative* [...] 15, 2024 2:35 PM documented in this encounterOhiohealth Mansfield Hospital04-14-2025 NoteLouis [facility]04-14-2025 History of Present illness Narrative* Virgil Farley DDS - 11/15/2024 1:48 PM EDTSummary: Liver Transplant Dental Bedside Clearance See inpatient note for this encounter on 11/15/2024. Virgil Farley DDS documented in this encounterOhiohealth Mansfield Hospital04-14-2025 NoteLouis [facility]04-13-2025 NoteLouis [facility]04-12-2025 NoteLouis [facility]04-11-2025 History of Present illness Narrative* [...] mg capsule(s) rifAXIMin 550 mg tab(s) (XIFAXAN) dydkqyj-ztzmbvzuf-lijcdph D3 500 mg-5 mcg (200 unit) 1 [...] Guzman, PharmD Transplant Pharmacy Clinical Specialist Pager: [phone] documented in this encounterOhiohealth Mansfield Hospital04-11-2025 NoteLouis [facility]04-11-2025 NoteLouis [facility]04-11-2025 History of Present illness Narrative* Jeremi Abreu, DAYSI - 11/12/2024 2:52 PM EDT The following information has been provided/discussed with the patient/family during Shared MedicalAppointment education class: Informed Consent for Organ Transplant Program Participation version February 20, 2023. SRTR information provided and questions answered. Informed patient to call facilities coordinator with any questions. [facility] information regarding multiple listings for organ transplantation Evaluation process including presentation to selection committee and listing criteria Surgical procedure, including post-operative management, hospitalization, immunosuppressive medications and their side effects (including the risk for hypertension, diabetes, kidney problems and cancers) and electrolysist follow up after transplant. Possibility of recurrent [...] was also addressed Patient was provided with [facility] information sheet regarding transplantation of HepatitisC [...] In Department: TRANSPLANT CENTER documented in this encounterOhiohealth Mansfield Hospital04-11-2025 NoteLouis [facility]04-11-2025 History of Present illness Narrative* Marah Arauz [...] 12, 2024 1:16 PM documented in this encounterOhiohealth Mansfield Hospital04-11-2025 Miscellaneous Notes* Telephone Encounter - Jeremi Abreu RN - 11/12/2024 12:08 PM EDT INFORMED CONSENT Franklin Chapa [facility] Medical Record: [id number] Informed consent for Organ Transplant Program Participation [...] Jeremi Abreu RN, BSN Liver Contact Lens Inspector documented in this encounterOhiohealth Mansfield Hospital04-11-2025 Telephone encounter Note * Telephone Encounter - Jeremi Abreu RN - 11/12/2024 12:08 PM EDT INFORMED CONSENT Franklin Chapa [facility] Medical Record: [id number] Informed consent for Organ Transplant Program Participation [...] Jeremi Abreu RN, BSN Liver Contact Lens Inspector [facility] Work Phone: [phone] NoteLouis Stokes [facility] Center04-11-2025 NoteHNO ID: [id number] Author: KIRTI VELÁSQUEZ RN Service: Nursing Author Type: Registered Nurse Type: Nursing Progress Note Filed: 11/12/2024 00:58 Note Text: Other: PTTAC-no clot detected at 320-heparin gtt stopped-need futher orders-numerical control drill press operator notifiedLouis Stokes [facility]04-10-2025 NoteLouis [facility] 11-11-2024 NoteLouis [facility]04-10-2025 NoteLouis [facility]04-09-2025 Discharge summary Author Kathie Powers [facility] Note Date/Time November 10, 2024 8:42 pm [facility] Medical Records Department [address] [place] [address] Discharge Summary 11/10/241936 MR#: [id number] Acct: [id number] Name: FRANKLIN WIGGINS Rep #:[id number] : 1965 59 From: Kathie Powers MD PCP: Care Physician,No Primary Status :ADM IN Location: [place] [address] Providers Date of Admission: 10/29/24 Date of Discharge: 11/10/24 Primary Care Physician: No Primary Care Phys Consultations 10/29/24 01:15 Consult: Urology Routine Consulting Provider: Foster Rascon Reason for Consult: Sepsis with UTI and Staghorn Calculus. EMERGENT Consult: No MD Notified: Yes Date Notified: 10/29/24 Time Notified: 08:07 Method of Notification: Verbal 10/29/24 01:47 Consult: F[place] Pen Nibs Inspector / Pulmonary Medicine Routine Consulting Provider: Intensivists/Pulmonary Med Reason for Consult: Sepsis, UTI, Diarrhea, Abdominal Pain and Back Pain. EMERGENT Consult: No Notified: Yes Date Notified: 10/29/24 Time Notified: 04:58 Method of Notification: Text 10/30/24 03:54 Consult: Gastroenterology Routine Consulting Provider: [facility] Reason for Consult: BOYER, elevated ammonia EMERGENT Consult: No Notified: Yes Date Notified: 10/30/24 Time Notified: 07:31 Method of Notification: Text 11/09/24 21:26 Consult: Gastroenterology Routine Consulting Provider: [facility] Reason for Consult: cirrhosis,ascites,splenic thrombosis, low plts, possible dec in heidy motili EMERGENT Consult: No MD Notified: Yes Date Notified: 11/10/24 Time Notified: 05:35 Method of Notification: Text Consult: Oncology/Hematology Routine Consulting Provider: [facility] Reason for Consult: [...] diabetes, staghorn colliculi, cirrhosis who presented to [facility] ED 10/29/2024 with sepsis and [...] heme-onc was in agreement. Reach out to [facility] and ultimately patient was accepted by the wire wrapping 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 Dr. Neal. Patient with bed assignment 11/10, patient to be transferred to [facility] Physical Exam Narrative General: Sleeping but [...] 83.0 H, Lymph % (Auto) 6.6 L, Kenton % (Auto) 6.9, Eos % (Auto) 1.9, [...] Clarity Turbid, Urine pH 6.5, Ur Specific [place] 1.015, Urine Protein 500 H, Urine Glucose [...] Cage; Thiago Wray; Gabbi Hughes; Thai Godfrey; Michael Garza; Zachariah Glover; Scott Weston; Yue Delgadillo PITCH FLAKER Discharge Orders/Prescriptions Prescriptions: No Action lidocaine 5 [...] pain) Referrals / Follow Up: Amrita Fields [facility] [Provider Group] - In 1 Week Care Physician,No Primary [Primary Care Provider] - Disposition Disposition (needs filled in before D/C Order can be placed): Acute Care Hospital Charges/Coding Visit Charges Inpatient E&M: 86961 Disch Hosp >30min 11/10/242041 <Electronically signed by Kathie Powers MD> Cosigner Signature (if applicable): CC: Dr. Kathie Powers MD; No Primary Care Physician~ Signed [facility] Work Phone: 1(455) 339-843404-09-2025 Discharge summary Author Kathie Powers [facility] Note Date/Time November 10, 2024 7:37 pm [facility] Medical Records Department [address] [place] [address] Instructions for Home/Discharge Instructions 11/10/241935 MR#: [id number] Acct: [id number] Name: FRANKLIN WIGGINS Rep #:[id number] : [...] Cage; Thiago Wray; Gabbi Hughes; Thai Godfrey; Michael Garza; Zachariah Glover; Scott Weston; Yue Delgadillo PITCH FLAKER Discharge Orders/Prescriptions Prescriptions: No Action lidocaine 5 [...] in before D/C Order can be placed): [facility] 11/10/241936<Electronically signed by Kathie Powers MD>Kathie Powers MD CC: YG Delgadillo; Dr. Hill Herrmann MD; Dr. Hill Acuña MD; Dr. Hill Caro DO; Dr. Thiago Wray MD; Dr. Blair Cage MD; Dr. Foster Gresham MD; Dr. Gabbi Hughes MD; Dr. Buster Fuchs MD; Dr. Thai Godfrey MD; Dr. Zachariah Glover MD; Dr. Michael Garza MD; Dr. Scott Weston DO; No Primary Care Physician ~ Signed [facility] Work Phone: 1(286) 439-538704-09-2025 Consult note Author Foster Rascon [facility] Note Date/Time November 10, 2024 8:59 am [facility] Medical Records Department [address] [place] [address] Consultation 11/10/24 0857 MR#: [id number] Acct: [id number] Name: FRANKLIN WIGGINS Rep #:[id number] : 1965 59 From: Foster Rascon MD PCP: Care Physician,No Primary Status :ADM [facility] Date of Consult: 11/10/24 59-year-old [...] applicable): CC: No Primary Care Physician~ Signed [facility] Work Phone: [phone]) 156-171304-08-2025 Progress note Author Kathie Powers [facility] Note Date/Time November 09, 2024 9:26 pm [facility] Medical Records Department [address] [place] [address] Progress Note - Hospitalist 11/09/241 MR#: [id number] Acct: [id number] Name: FRANKLIN WIGGINS Rep #:[id number] : 1965 59 From: Kathie Powers MD PCP: Care Physician,No Primary Status :ADM IN Location: [place] [address] scan w/ ascites and [...] Cosigner Signature (if applicable): CC: ~ Signed [facility] Work Phone: 1(761) 695-493004-08-2025 Progress note Author Kathie Powers [facility] Note Date/Time November 09, 2024 6:54 pm [facility] Medical Records Department [address] [place] [address] Progress Note - Hospitalist 11/09/24 1850 MR#: [id number] Acct: [id number] Name: FRANKLIN WIGGINS Rep #:[id number] : 1965 59 From: Kathie Powers MD PCP: Care Physician,No Primary Status :ADM IN Location: [place] [address] Reason for Visit Reason for Visit: Diagnoses [...] 79.1 H, Lymph % (Auto) 8.2 L, Kenton % (Auto) 8.1, Eos % (Auto) 3.0, [...] with interval NG tube removal. Reading Location: [facility] Rhythm Strip Rhythm Strip: Sinus [...] 42 Minutes Charges/Coding Visit Charges Inpatient E&M: 16707 [facility] Hosp L2 11/09/24 1855 <Electronically signed by Kathie Powers MD> Cosigner Signature (if applicable): CC: ~ Signed [facility] Work Phone: 1(377) 373-819304-08-2025 Radiology Diagnostic study [facility]04-08-2025 Radiology Diagnostic study [facility]04-07-2025 Progress note Author Kathie Powers [facility] Note Date/Time November 08, 2024 6:26 pm [facility] Medical Records Department [address] [place] [address] Progress Note - Hospitalist 11/08/24 1441 MR#: [id number] Acct: [id number] Name: GEREMIASFRANKLINKarma CHAPA Rep #:[id number] : 1965 59 From: Kathie Powers MD PCP: Care Physician,No Primary Status :ADM IN Location: [place] [address] Reason for Visit Reason for Visit: Diagnoses [...] L*, MPV 12.0, Diff Path Review May foll, Sodium 126 L, Potassium 3.6, Chloride 102, [...] 56 Minutes Charges/Coding Visit Charges Inpatient E&M: 32391 Subs Hosp L3 11/08/24 1503 <Electronically signed [...] Cosigner Signature (if applicable): cc: ~* Signed [facility] Work Phone: 1([phone]) 274-696204-06-2025 Progress note Author Hill Acuña [facility] Note Date/Time November 07, 2024 10:3 8am [facility] Medical Records Department [address] [place] [address] Progress Note - Hospitalist 11/07/24 0913 MR#: [id number] Acct: [id number] Name: FRANKLIN WIGGINS Rep #:[id number] : 1965 59 From: Hill Acuña MD PCP: Care Physician,No Primary Status :ADM IN Location: [place] [address] Reason for Visit Reason for Visit: Diagnoses [...] 81.5 H, Lymph % (Auto) 6.9 L, Kenton % (Auto) 6.9, Eos % (Auto) 2.3, [...] ? Requested for PT OT eval and transition social worker to assist with discharge planning [...] 36 Minutes Charges/Coding Visit Charges Inpatient E&M: 30383 Subs Hosp L2 11/07/24 1038 <Electronically signed by Hill Acuña MD> Cosigner Signature (if applicable): CC: ~ Signed [facility] Work Phone: 1([phone]) 218-821904-05-2025 Progress note Author Hill Glasskarma [facility] Note Date/Time November 06, 2024 10:5 7am [facility] Medical Records Department [address] [place] [address] Progress Note - Hospitalist 11/06/24 0756 MR#: [id number] Acct: [id number] Name: FRANKLIN WIGGINS Rep #:[id number] : 1965 59 From: Hill Acuña MD PCP: Care Physician,No Primary Status :ADM IN Location: [place] [address] Reason for Visit Reason for Visit: Diagnoses [...] ? Requested for PT OT eval and transition social worker to assist with discharge planning ? 11/05/2024; plan is for patient to be discharged home when medically stable. Patient does not qualify for home health as he currently does not have a primarycare physician he has been given a referral to [facility] 1 Time spent in the patient's overall evaluation,decision-making process, review of diagnostic data, adjustment of management, discussion with other providers, nursing nursing and ancillary staff involved in patient's care documentation, 36 Minutes Charges/Coding Visit Charges Inpatient E&M: 34738 Subs Hosp L2 11/06/24 1057 <Electronically signed by Hill Acuña MD> Cosigner Signature (if applicable): CC: ~ Signed [facility] Work Phone: 1([phone]) [phone] Progress note Author Hill Acuña [facility] Note Date/Time November 05, 2024 9:26 am [facility] Medical Records Department [address] [facility] [place] [address] Progress Note - Hospitalist 11/05/24 0924 MR#: [id number] Acct: [id number] Name: FRANKLIN WIGGINS Rep #:[id number] : 1965 59 From: Hill Acuña MD PCP: Care Physician,No Primary Status :ADM IN Location: [place] [address] Reason for Visit Reason for Visit: Diagnoses [...] 81.0 H, Lymph % (Auto) 6.7 L, Kenton % (Auto) 7.1, Eos % (Auto) 2.3, [...] ? Requested for PT OT eval and transition social worker to assist with discharge planning ? 11/05/2024; plan is for patient to be discharged home when medically stable. Patient does not qualify for home health as he currently does not have a primarycare physician he has been given a referral to [facility] Time spent in the patient's overall evaluation,decision-making process, review of diagnostic data, adjustment of management, discussion with other providers, nursing nursing and ancillary staff involved in patient's care documentation, 38 Minutes Charges/Coding Visit Charges Inpatient E&M: 00559 Subs Hosp L2 11/05/24 0926 <Electronically signed by Hill Acuña MD> Cosigner Signature (if applicable): CC: ~ Signed [facility] Work Phone: 1([phone]) [phone] Progress note Author Hill Acuña [facility] Note Date/Time November 04, 2024 11:5 0am [facility] Medical Records Department [address] [place] [address] Progress Note - Hospitalist 11/04/24 1105 MR#: [id number] Acct: [id number] Name: FRANKLIN WIGGINS Rep #:[id number] : 1965 59 From: Hill Acuña MD PCP: Care Physician,No Primary Status :ADM IN Location: [place] [address] Reason for Visit Reason for Visit: Diagnoses [...] 83.6 H, Lymph % (Auto) 4.9 L, Kenton % (Auto) 5.9, Eos % (Auto) 1.1, [...] ? Requested for PT OT eval and transition social worker to assist with discharge planning Time spent in the patient's overall evaluation,decision-making process, review of diagnostic data, adjustment of management, discussion with other providers, nursing nursing and ancillary staff involved in patient's care documentation, 38 Minutes Charges/Coding Visit Charges Inpatient E&M: 03220 Subs Hosp L2 11/04/24 1150 <Electronically signed by Hill Acuña MD> Cosigner Signature (if applicable): CC: ~ Signed [facility] Work Phone: 1(392) 927-518504-03-2025 Progress note Author [facility] Note Date/Time November 04, 2024 6:43 am [facility] Medical Records Department [address] [place] [address] Progress Note - Hospitalist 11/04/24 0642 MR#: [id number] Acct: [id number] Name: FRANKLIN WIGGINS Rep #:[id number] : 1965 59 From: Maria Guadalupe Shore MD PCP: Care Physician,No Primary Status :ADM IN Location: [place] [address] Hospitalist Note Patient with 15 beat asymptomatic VT. Electrolytes recently checked, mag normal range, K normal range. 11/04/24 0643 <Electronically signed by Maria Guadalupe Shore MD> Cosigner Signature (if applicable): CC: ~ Signed [facility] Work Phone: 1(725) 538-395104-03-2025 Progress note Author [facility] Note Date/Time November 03, 2024 10:3 8pm [facility] Medical Records Department [address] [place] [address] Progress Note - Hospitalist 11/03/242236 MR#: [id number] Acct: [id number] Name: FRANKLIN WIGGINS Rep #:[id number] : 1965 59 From: Maria Guadalupe Shore MD PCP: Care Physician,No Primary Status :ADM IN Location: [place] [address] Hospitalist Note Patient with mildly tachycardia through the late afternoon and evening. Will administer 500 cc bolus and reassess. From review of medications not normally onBB therapy. 11/03/242237 <Electronically signed by Maria Guadalupe Shore MD> Cosigner Signature (if applicable): CC: ~ Signed [facility] Work Phone: 1(107) 279-135704-02-2025 Progress note Author Hill Acuña [facility] Note Date/Time November 03, 2024 10:2 7am [facility] Medical Records Department [address] [place] [address] Progress Note - Hospitalist 11/03/24 1025 MR#: [id number] Acct: [id number] Name: FRANKLIN WIGGINS Rep #:[id number] : 1965 59 From: Hill Acuña MD PCP: Care Physician,No Primary Status :ADM IN Location: [place] [address] Reason for Visit Reason for Visit: Diagnoses [...] ? Requested for PT OT eval and transition social worker to assist with discharge planning Time spent in the patient's overall evaluation,decision-making process, review of diagnostic data, adjustment of management, discussion with other providers, nursing nursing and ancillary staff involved in patient's care documentation, 38 Minutes Charges/Coding Visit Charges Inpatient E&M: 41546 Subs Hosp L2 11/03/24 1027 <Electronically signed by Hill Acuña MD> Cosigner Signature (if applicable): CC: ~ Signed [facility] Work Phone: 1([phone]) 996-619204-01-2025 Progress note Author Hill Acuña [facility] Note Date/Time November 02, 2024 10:0 5am [facility] Medical Records Department [address] [place] [address] Progress Note - Hospitalist 11/02/24 0804 MR#: [id number] Acct: [id number] Name: FRANKLIN WIGGINS Rep #:[id number] : 1965 59 From: Hill Acuña MD PCP: Care Physician,No Primary Status :ADM IN Location: [place] [address] Reason for Visit Reason for Visit: Diagnoses [...] 50 Minutes Charges/Coding Visit Charges Inpatient E&M: 67676 Subs Hosp L3 11/02/24 1005 <Electronically signed by Hill Acuña MD> Cosigner Signature (if applicable): CC: ~ Signed [facility] Work Phone: [phone]) [phone] Progress note Author Hill Acuña [facility] Note Date/Time November 01, 2024 11: 41am [facility] Medical Records Department [address] [place], [place] [address] [address] Progress Note - Hospitalist 11/01/24 1128 MR#: [id number] Acct: [id number] Name: FRANKLIN WIGGINS Rep #:[id number] : 1965 59 From: Hill Acuña MD PCP: Care Physician,No Primary Status :ADM IN Location: [place] [address] Reason for Visit Reason for Visit: Diagnoses [...] H, Differential Comment SCANNED, Diff Path Review December, Platelet Estimate ADEQUATE, Anisocytosis 1+, Sodium 135, [...] 50 Minutes Charges/Coding Visit Charges Inpatient E&M: 49171 Subs Hosp L3 11/01/24 1141 <Electronically signed by Hill Acuña MD> Cosigner Signature (if applicable): CC: ~ Signed [facility] Work Phone: 1([phone]) [phone] Progress note Author Niranjan Li [facility] Note Date/Time November 01, 2024 8:4 4am [facility] Medical Records Department [address] [place] [address] Progress Note 11/01/24 0836 MR#: [id number] Acct: [id number] Name: FRANKLIN WIGGINS Rep #:[id number] : 1965 59 From: Niranjan Li DO PCP: Care Physician,No Primary Status :ADM IN Location: [place] [address] Progress Note Patient has a little bit [...] doses of vancomycin. Visit Charges Inpatient E&M: 54535 Subs Hosp L3 11/01/24 0844 <Electronically signed by Niranjan Li DO> Niranjan Li DO Cosigner Signature (if applicable): CC: ~ Signed [facility] Work Phone: [phone] 586-620503-31-2025 Consult note Author Ale Renee [facility] Note Date/Time November 01, 2024 6:[address] [facility] Medical Records Department [address] [place] [address] Pharmacokinetic/Renal -Consult 11/01/24 0604 MR#: [id number] Acct: [id number] Name: FRANKLIN WIGGINS Rep #:[id number] : 1965 59 From: Ale Renee PCP: Care Physician,No Primary Status :ADM IN Y Location: [place] [address] Consult Antibiotic Management Pharmacy has been consulted [...] Date Hill Caro DO CC: ~ Signed [facility] Work Phone: [phone]) 161-986003-30-2025 Progress note Author Buster Fuchs [facility] Note Date/Time October 31, 2024 9:5 5am [facility] Medical Records Department [address] [place] [address] Progress Note - Hospitalist 10/31/24 0952 MR#: [id number] Acct: [id number] Name: FRANKLIN WIGGINS Rep #:[id number] : [...] (Auto) 80.3 H, Lymph %(Auto) 5.9 L, [place] % (Auto) 7.9, Eos % (Auto) 1.5, [...] they did add IV Flagyl ? Appreciate bleach liquor maker assistance 2. Acute metabolic cephalopathy with nonalcoholic [...] DVT: SCDs Charges/Coding Visit Charges Inpatient E&M: 16208 Subs Hosp L2 10/31/24 0955 <Electronically signed by Buster Fuchs MD> Cosigner Signature (if applicable): CC: ~ Signed [facility] Work Phone: [phone]) [phone] Consult note Author Foster Rascon [facility] Note Date/Time October 31, 2024 7:3 1am [facility] Medical Records Department [address] [place] [address] Consultation 10/31/24 0730 MR#: [id number] Acct: [id number] Name: FRANKLIN WIGGINS Rep #:[id number] : [...] applicable): CC: No Primary Care Physician~ Signed [facility] Work Phone: [phone] Consult note Author Niranjan Li [facility] Note Date/Time October 30, 2024 9:3 4pm [facility] Medical Records Department [address] [place] [address] Consultation - GI 10/30/242047 MR#: [id number] Acct: [id number] Name: FRANKLIN WIGGINS Rep #:[id number] : [...] of yellow-colored fluid removed. He presented backto [facility] ER complaining of abdominal pain, [...] He is also on Zosyn for urosepsis. [facility] Medical History Chronic hypotension Obesity (BMI [...] 85.6 H, Lymph % (Auto) 4.3 L, [place] % (Auto) 7.3, Eos % (Auto) 0.5, [...] NG tube in satisfactory position. Reading Location: [facility] Assessment & Plan Assessment/Plan (1) Sepsis: QUALIFIERS: [...] this admission. Charges/Coding Visit Charges Inpatient E&M: 92292 Init Hosp L3 10/30/242133 <Electronically signed by Niranjan Li DO> Cosigner Signature (if applicable): CC: No Primary Care Physician~ Signed [facility] Work Phone: [phone] Consult note Author Kourtney Reece [facility] Note Date/Time October 30, 2024 4[facility] [address] [place] [address] Pharmacokinetic/Renal -Consult 10/30/24 1552 MR#: [id number] Acct: [id number] Name: FRANKLIN WIGGINS Rep #:[id number] : [...] Date Buster Fuchs MD CC: ~ Signed [facility] Work Phone: [phone]) [phone] Progress [facility] Note Date/Time October 30, 2024 10: 45am [facility] Medical Records Department [address] [place] [address] Progress Note - Fountain Pen Nibs Inspector 10/30/24 1037 MR#: [id number] Acct: [id number] Name: FRANKLIN WIGGINS Rep #:[id number] : [...] Lidocaine 5% Patch TOPICAL Not Given DAILY [facility] Protocol Midodrine 10 mg 10/29/24 02:00 10/30/24 [...] Vancomycin Trough/Random Due MC 10/30/24 16:30 DAILY [facility] Zinc Sulfate 50 mg 10/29/24 10:00 10/30/24 [...] 85.5 H, Lymph % (Auto) 4.6 L, [place] % (Auto) 7.4, Eos % (Auto) 1.2, [...] 85.6 H, Lymph % (Auto) 4.3 L, [place] % (Auto) 7.3, Eos % (Auto) 0.5, [...] satisfactory position. Reading Location[facility] Assessment and Plan . Assessment and [...] Cosigner Signature (if applicable): CC: ~ Signed [facility] Work Phone: [phone] Consult note Author Foster Rascon [facility] Note Date/Time October 30, 2024 9:5 8am [facility] Medical Records Department [address] [place] [address] Consultation - Urology 10/30/24 0956 MR#: [id number] Acct: [id number] Name: GEREMIASFRANKLIN GARCIA CARMELA Rep #:[id number] : 1965 59 From: [...] nephrostomy tube we will continue to follow. [facility] Medical History Chronic hypotension Obesity (BMI [...] 85.5 H, Lymph % (Auto) 4.6 L, [place] % (Auto) 7.4, Eos % (Auto) 1.2, [...] 85.6 H, Lymph % (Auto) 4.3 L, [place] % (Auto) 7.3, Eos % (Auto) 0.5, [...] satisfactory position. Reading Location: [facility] 10/30/24 0958 <Electronically signed by Foster Rascon MD> Cosigner Signature (if applicable): CC: No Primary Care Physician~ Signed [facility] Work Phone: [phone] Progress note Author Buster Fuchs [facility] Note Date/Time October 30, 2024 8:2 9am [facility] Medical Records Department [address] [place] [address] Progress Note - Hospitalist 10/30/24819 MR#: [id number] Acct: [id number] Name: FRANKLIN WIGGINS Rep #:[id number] : [...] 85.5 H, Lymph % (Auto) 4.6 L, [place] % (Auto) 7.4, Eos % (Auto) 1.2, [...] 85.6 H, Lymph % (Auto) 4.3 L, [place] % (Auto) 7.3, Eos % (Auto) 0.5, [...] 3. Left-sided ureteral stent noted. Reading Location: [facility] Rhythm Strip Rhythm Strip: Sinus Rhythm [...] antibiotics ? Cultures are pending ? Appreciate bleach liquor maker assistance 2. Acute metabolic cephalopathy with nonalcoholic [...] DVT: SCDs Charges/Coding Visit Charges Inpatient E&M: 12109 Subs Hosp L2 10/30/24 0829 <Electronically signed by Buster Fuchs MD> Cosigner Signature (if applicable): CC: ~ Signed [facility] Work Phone: [phone] Radiology Diagnostic study [facility]03-28-2025 Consult note Author Foster Rascon [facility] Note Date/Time October 29, 2024 10: 32am [facility] Medical Records Department [address] [place] [address] Consultation - Urology 10/29/24 0808 MR#: [id number] Acct: [id number] Name: FRANKLIN WIGGINS Rep #:[id number] : [...] emergency intervention is necessary from my standpoint [facility] Medical History Chronic hypotension Obesity (BMI [...] 83.0 H, Lymph % (Auto) 5.6 L, [place] % (Auto) 8.4, Eos % (Auto) 1.4, [...] vertebral body compression fracture deformities. Reading Location: [id number] 10/29/24 1032 <Electronically signed by Foster Rascon MD> Cosigner Signature (if applicable): CC: No Primary Care Physician~ Signed [facility] Work Phone: [phone] Consult note Author Bola Meraz [facility] Note Date/Time October 29, 2024 10: 24am [facility] Medical Records Department [address] [place] [address] Consultation - Fountain Pen Nibs Inspector 10/29/24 0744 MR#: [id number] Acct: [id number] Name: FRANKLIN WIGGINS Rep #:[id number] : [...] coverage initiated. This note was generated with [employer] dictation software. It may contain incorrectwords, spelling, [...] stable, without the need for vasopressor support. [facility] Medical History Chronic hypotension Obesity (BMI [...] 83.0 H, Lymph % (Auto) 5.6 L, [place] % (Auto) 8.4, Eos % (Auto) 1.4, [...] vertebral body compression fracture deformities. Reading Location: [facility] Charges/Coding Visit Charges Inpatient E&M: 11322 Init Hosp L3 10/29/24 1024 <Electronically signed by Bola Meraz DO> Cosigner Signature (if applicable): CC: No Primary Care Physician~ Signed [facility] Work Phone: [phone] Radiology Diagnostic study [facility]03-28-2025 History and physical note Author Hill Wright [facility] Note Date/Time October 29, 2024 6:4 7am [facility] Medical Records Department [address] [place] [address] H&P Exam - Hospitalist 10/29/24 0033 MR#: [id number] Acct: [id number] Name: GEREMIASFRANKLINKarma CHAPA Rep #:[id number] : 1965 59 From: [...] toSeptember 02, 2024 with patient diagnosed with lvlwe-ss-pbcmuqt hypotension in thesetting of acute hepatic encephalopathy [...] fluid removed who once again presents to [facility] ER complaining of abdominal pain, [...] thatis expected to extend beyond 2 midnights. [facility] Medical History Chronic hypotension Obesity (BMI [...] 83.0 H, Lymph % (Auto) 5.6 L, [place] % (Auto) 8.4, Eos % (Auto) 1.4, [...] vertebral body compression fracture deformities. Reading Location: [facility] Assessment & Plan Assessment/Plan (1) [...] and sensitivity data. Give acetaminophen prn for osja-rz-ofvrkfzz (level 1-5/10) pain or fever. Give morphine [...] appreciated in advance. Finally, we will consult bleach liquor maker to see this patient on-rounds in the AM for further recommendations with help appreciated in advance. 2. Admission here from August 29, 2024 to September 02, 2024 with patient diagnosed with cdkwm-tl-echpvuz hypotension in the setting of acute hepatic [...] responsive hypotension Charges/Coding Visit Charges Inpatient E&M: 93297 Init Hosp L3 10/29/24 0647 <Electronically signed by Hill Caro DO> Cosigner Signature (if applicable): CC: Dr. Hill Caro DO; No Primary Care Physician~ Signed [facility] Work Phone: [phone] Consult note Author Ale Renee [facility] Note Date/Time October 29, 2024 3:[address] [facility] Medical Records Department [address] [facility] [place] [address] Pharmacokinetic/Renal -Consult 10/29/24316 MR#: [id number] Acct: [id number] Name: FRANKLIN WIGGINS Rep #:[id number] : [...] Date Hill Caro DO CC: ~ Signed [facility] Work Phone: [phone] Discharge summary Author Alber Dunn [facility] Note Date/Time October 29, 2024 1:0 4am [facility] Medical Records Department [address] [place] [address] Emergency Department Summary 10/28/24 MR#: [id number] Acct: [id number] Name: FRANKLIN WIGGINS Rep #:[id number] : [...] Prior similar symptoms: Yes Recent Illness/Hospitalization: No [facility] Medical History Chronic hypotension [...] There is a pressure was 81/50 5 pwmtaz80/60 when I am in the room it [...] 83.0 H Lymph % (Auto) 5.6 L [place] % (Auto) 8.4 Eos % (Auto) 1.4 [...] Clarity Cloudy Urine pH 6.5 Ur Specific [place] 1.015 Urine Protein 500 H Urine Glucose [...] vertebral body compression fracture deformities. Reading Location: [facility] Rhythm Strip Rhythm Strip: Sinus Rhythm Rate: 83 Ectopy: None EKG Initial EKG: Attestation: I personally reviewed and interpreted this EKG as follows: Interpretation: Sinus Rhythm and No Acute Injury Pattern Comments: Normal sinus rhythm rate 83 no acute signs of LA or ischemia. No dysrhythmia. Critical Care Time Critical Care Time: Yes Critical care time (excluding procedures): 30-74 minutes, Including time spent:,Discussing w/Patient &/or Family/Machine Repairer Maintenance, Discussing w/Consultants, ArrangingAdmission or Transfer, Performing Direct Patient Care at Bedside and - (38 min) Discharge Plan Dx/Rx/DC Orders Clinical Impression: Chronic back pain, Chronic abdominal pain, Leukocytosis, Acute UTI, Acute hypotension, Acidosis, lactic, Sepsis Disposition Disposition: Acute Care [facility] What to do if you have Problems For any increased pain, shortness of breath, bleeding, nausea or vomiting, chestpain, or any unexpected problems, contact your Primary Care Provider. Call [facility] ([phone]) or report to the closest Emergency Room. Call 911 if necessary. 10/29/24 0104 <Electronically signed by Alber Dunn MD> Cosigner Signature (if applicable): CC: No Primary Care Physician ~ Signed [facility] Work Phone: [phone] Evaluation note* Diagnosis Onset Date Resolution Status Admit Date Clostridium difficile colitis acute October 29, 2024 12:43am History of uric acid staghor n calculus acute October 29, 2024 12:43am Hyponatremia acute October 29, 2024 12:43am Leukocytosis acute October 29, 2024 12:43am Obesity (BMI 30.0-34.9) acute M arch 2024 12:43am Chronic abdominal pain chronic [facility] 2024 12:43am Chronic back pain chronic October [...] 2024 7:00am Lactic acidosis acute January 7:00am [facility] Work Phone: [phone] Evaluation note* Diagnosis Onset Date Resolution Status Admit Date Clostridium difficile colitis acute October 29, 2024 12:43am History of uric acid staghor n calculus acute October 29, 2024 12:43am Hyponatremia acute October 29, 2024 12:43am Leukocytosis acute October 29, 2024 12:43am Obesity (BMI 30.0-34.9) acute [facility] 2024 12:43am Chronic abdominal pain chronic [facility] 2024 12:43am Chronic back pain chronic October [...] January 7:00am Umbilical hernia acute January 7:00am [facility] Work Phone: [phone] Evaluation note* Diagnosis Onset Date Resolution Status Admit Date Clostridium difficile colitis acute October 29, 2024 12:43am History of uric acid staghor n calculus acute October 29, 2024 12:43am Hyponatremia acute October 29, 2024 12:43am Leukocytosis acute October 29, 2024 12:43am Obesity (BMI 30.0-34.9) acute M [facility] 2024 12:43am Chronic abdominal pain chronic [facility] 2024 12:43am Chronic back pain chronic October [...] January 7:00am Umbilical hernia inactive January 7:00am [facility] Work Phone: [phone] Evaluation note* Diagnosis Onset Date Resolution Status [...] Chronic anemia chronic February 16, 2025 6:26pm [facility] Work Phone: [phone] Evaluation note* Diagnosis Onset Date Resolution Status Admit Date Clostridium difficile colitis acute October 29, 2024 12:43am History of uric acid staghor n calculus acute October 29, 2024 12:43am Hyponatremia acute October 29, 2024 12:43am Leukocytosis acute October 29, 2024 12:43am Obesity (BMI 30.0-34.9) acute M arch 2024 12:43am Chronic abdominal pain chronic [facility] 2024 12:43am Chronic back pain chronic October [...] Chronic anemia chronic February 16, 2025 6:26pm [facility] Work Phone: [phone] Evaluation note* Diagnosis Onset Date Resolution Status Admit Date Clostridium difficile colitis acute October 29, 2024 12:43am History of uric acid staghor n calculus acute October 29, 2024 12:43am Hyponatremia acute October 29, 2024 12:43am Leukocytosis acute October 29, 2024 12:43am Obesity (BMI 30.0-34.9) acute M [facility] 2024 12:43am Chronic abdominal pain chronic [facility] 2024 12:43am Chronic back pain chronic October [...] thoracic spine, non-traumatic acute Ju 2024 2:16pm Leukocytosis acute January 09 2:16pm Metabolic acidosis acute January 092024 2:16pm Sepsis resolved January 09, 2025 2:16pm Lactic acidosis resolved January 09, 2025 2:16pm Spinal stenosis, lumbar zuleyma on with neurogenic claudication inactive Jan 2:16pm Umbilical hernia inactive January 2:16pm Abnormal urinalysis acute January 28, 2025 7:00am Acute UTI acute January 28 7:00am Lactic acidosis resolved January 7:00am Hepatic encephalopathy inactive Marcella ne 2024 7:00am Umbilical hernia inactive January 7:00am Chronic anemia inactive February 16, 2025 6:26pm Cirrhosis of liver with ascites inac tive February 16, 2025 6:26pm Decompensated cirrhosis inactive J pam 2024 6:26pm Elevated liver enzymes inactive Ju ly 2024 6:26pm History of diabetes mellitus inactiv e February 16, 2025 6:26pm Hyperammonemia inactive February 16, 2025 6:26pm Acute hepatic encephalopathy inactiv e February 25, 2025 4:13pm Cirrhosis of liver with ascites inac tive February 25, 2025 4:13pm Diffuse abdominal pain inactive Ju ly 2024 4:13pm Elevated liver enzymes inactive Ju ly 2024 4:13pm Hepatic encephalopathy inactive Ju ly 2024 4:13pm Hyperammonemia inactive February 25, 2025 4:13pm Hepatic cirrhosis acute March 10, 2025 1:52pm [facility] Work Phone: [phone] Discharge summary [facility] Medical Records Department [address] [place] [address] Emergency Department Summary 10/28/24 MR#: [id number] Acct: [id number] Name: FRANKLIN WIGGINS Rep #:[id number] : [...] Prior similar symptoms: Yes [facility] Medical History Chronic hypotension Obesity (BMI [...] There is a pressure was 81/50 5 eshurg59/60 when I am in the room it [...] sepsis. Currently he is stable at12:10 AM. [facility] blood pressure is 110/67. Spoke to the [...] 83.0 H Lymph % (Auto) 5.6 L [place] % (Auto) 8.4 Eos % (Auto) 1.4 [...] Clarity Cloudy Urine pH 6.5 Ur Specific [place] 1.015 Urine Protein 500 H Urine Glucose [...] vertebral body compression fracture deformities. Reading Location: [facility] Rhythm Strip Rhythm Strip: Sinus Rhythm Rate: 83 Ectopy: None EKG Initial EKG: Attestation: I personally reviewed and interpreted this EKG as follows: Interpretation: Sinus Rhythm and No Acute Injury Pattern Comments: Normal sinus rhythm rate 83 no acute signs of LA or ischemia. No dysrhythmia. Critical Care Time Critical Care Time: Yes Critical care time (excluding procedures): 30-74 minutes, Including time spent:,Discussing w/Patient &/or Family/Machine Repairer Maintenance, Discussing w/Consultants, ArrangingAdmission or Transfer, Performing Direct Patient Care at Bedside and - (38 min) Discharge Plan Dx/Rx/DC Orders Clinical Impression: Chronic back pain, Chronic abdominal pain, Leukocytosis, Acute UTI, Acute hypotension, Acidosis, lactic, Sepsis Disposition Disposition: Acute Care [facility] What to do if you have Problems For any increased pain, shortness of breath, bleeding, nausea or vomiting, chestpain, or any unexpected problems, contact your Primary Care Provider. Call [facility] ([phone]) or report tothe closest Emergency Room. Call 911 if necessary. 10/29/24 0104 Cosigner Signature (if applicable): CC: No Primary Care Physician ~ Signed [facility]03-27-2025 Radiology Diagnostic study note [facility] Imaging Services [address] [place] [address] Abdomen/Pelvis W IV Cont ONLY MR#: [id number] Acct: [id number] Name: GEREMIASFRANKLIN CARMELA Rep #: [id number] : 1965 M 59 From: Cassandra Starkey MD PCP: Care Physician,No Primary Status: REG ER Study:Abdomen/Pelvis W IV Cont ONLY Date of E xam: 10/28/24 Exam# [id number] Ordering Dr: Tee Dunn MD PROCEDURE: ABDOMEN/PELVIS [...] vertebral body compression fracture deformities. Reading Location: [facility] CC: Dr. Alber Dunn MD; No Primary Care Physician ~ Tip Bander: Signed [facility]03-27-2025 Discharge summary Author Alber Dunn [facility] Note Date/Time October 29, 2024 1:0 4am [facility] Medical Records Department [address] [place] [address] Emergency Department Summary 10/28/24 MR#: [id number] Acct: [id number] Name: FRANKLIN WIGGINS Rep #:[id number] : [...] Prior similar symptoms: Yes Recent Illness/Hospitalization: No [facility] Medical History Chronic hypotension [...] There is a pressure was 81/50 5 [id number]/60 when I am in the room it [...] 83.0 H Lymph % (Auto) 5.6 L Kenton % (Auto) 8.4 Eos % (Auto) 1.4 [...] Clarity Cloudy Urine pH 6.5 Ur Specific [place] 1.015 Urine Protein 500 H Urine Glucose [...] vertebral body compression fracture deformities. Reading Location: [facility] Rhythm Strip Rhythm Strip: Sinus Rhythm Rate: 83 Ectopy: None EKG Initial EKG: Attestation: I personally reviewed and interpreted this EKG as follows: Interpretation: Sinus Rhythm and No Acute Injury Pattern Comments: Normal sinus rhythm rate 83 no acute signs of LA or ischemia. No dysrhythmia. Critical Care Time Critical Care Time: Yes Critical care time (excluding procedures): 30-74 minutes, Including time spent:,Discussing w/Patient &/or Family/Machine Repairer Maintenance, Discussing w/Consultants, ArrangingAdmission or Transfer, Performing Direct Patient Care at Bedside and - (38 min) Discharge Plan Dx/Rx/DC Orders Clinical Impression: Chronic back pain, Chronic abdominal pain, Leukocytosis, Acute UTI, Acute hypotension, Acidosis, lactic, Sepsis Disposition Disposition: [facility] What to do if you have Problems For any increased pain, shortness of breath, bleeding, nausea or vomiting, chestpain, or any unexpected problems, contact your Primary Care Provider. Call [facility] ([phone]) or report to the closest Emergency Room. Call 911 if necessary. 10/29/24 0104 <Electronically signed by Alber Dunn MD> Cosigner Signature (if applicable): CC: No Primary Care Physician ~ Signed [facility] Work Phone: 1(104) 513-579103-03-2025 Procedure note* Joey Huang DO - 10/04/2024 5:17 PM ESTAssociated Order(s): Paracentesis Post-Procedure Diagnose(s): Other ascites Paracentesis Date/Time: 10/04/2024 5:17 PM Performed by: Joey Huang DO Authorized by: Joey Huang DO Consent: Consent obtained: Written Consent given by: Patient Risks, benefits, and alternatives were discussed: yes Risks discussed: Bleeding, bowel perforation and infection Alternatives discussed: No treatment [place] protocol: Procedure explained and questions answered to [...] Adhesive bandage Post-procedure details: Procedure completion: Tolerated [facility] Work Phone: 1(601) 559-828703-03-2025 Procedure note* Joey Huang DO - 10/04/2024 5:17 PM ESTAssociated Order(s): Paracentesis Post-Procedure Diagnose(s): Other ascites Paracentesis Date/Time: 10/04/2024 5:17 PM Performed by: Joey Huang DO Authorized by: Joey Huang DO Consent: Consent obtained: Written Consent given by: Patient Risks, benefits, and alternatives were discussed: yes Risks discussed: Bleeding, bowel perforation and infection Alternatives discussed: No treatment [place] protocol: Procedure explained and questions answered to [...] details: Procedure completion: Tolerated documented in this [facility] Work Phone: 1(759) 946-545703-03-2025 Consult note* Joey Huang, DO - 10/04/2024 5:13 PM EST Reason For Consult Ascites History Of Present Illness Franklin Wiggins is a 59 y.o. male presenting with abdominal pain. He presented to the emergency room from [facility] secondary to increasing abdominal girth pain and [...] call Assessment & Plan Joey Huang DO [facility] Work Phone: 1(466) 436-609103-03-2025 Consult note* Joey Huang DO - 10/04/2024 5:13 PM EST Reason For Consult Ascites History Of Present Illness Franklin Wiggins is a 59 y.o. male presenting with abdominal pain. He presented to the emergency room from [facility] secondary to increasing abdominal girth pain and [...] Plan Joey Huang DO documented in this [facility] Work Phone: 1(103) 236-968903-03-2025 Physician Emergency department Note* Sriram Oleary PA-C [...] Abnormality Status --------- ------ Urinalysis with Reflex C...[[id number]] Extra Urine Toney Tube[[id number]] Please view results for these tests on the individual orders. URINALYSIS WITH REFLEX CULTURE AND MICROSCOPIC EXTRA URINE TONEY TUBE PH, BODY FLUID LACTATE DEHYDROGENASE, BODY FLUID Narrative: The following orders were created for panel order Lactate Dehydrogenase, Body Fluid. Procedure Abnormality Status --------- ------ Lactate Dehydrogenase, B...[[id number]] In process Please view results for these tests on the individual orders. GLUCOSE, BODY FLUID Narrative: The following orders were created for panel order Glucose, Body Fluid. Procedure Abnormality Status --------- ------ Glucose, Body Fluid[[id number]] In process Please view results for these tests on the individual orders. PROTEIN, TOTAL, BODY FLUID Narrative: The following orders were created for panel order Protein, Total, Body Fluid. Procedure Abnormality Status --------- ------ Protein, Total, Body Fluid[[id number]] In process Please view results for these tests on the individual orders. BODY FLUID CELL COUNT WITH DIFFERENTIAL Narrative: The following orders were created for panel order Body Fluid Cell Count With Differential. Procedure Abnormality Status --------- ------ Body Fluid Cell Count[[id number]] In process Body Fluid Differential[[id number]] In process Please view results for these tests on the individual orders. ALBUMIN, BODY FLUID Narrative: The following orders were created for panel order Albumin, Body Fluid. Procedure Abnormality Status --------- ------ Albumin, Body Fluid[[id number]] In process Please view results for these [...] Yohana Huang 10/04/2024 2:28 PM Dictation workstation: [id number] Procedures Medical Decision Making Patient is a 59-year-old male with a hx of cirrhosis who presents to the emergency department with a chief complaint of abdominal pain from [facility]. He reports increased abdominal pain that he [...] cirrhosis type (Multi) Sriram Oleary PA-C 10/04/241736 [facility] Work Phone: 1(693) 990-857203-03-2025 Emergency department Note* Srriam Oleary PA-C - 10/04/2024 12:18 PM EST [...] Abnormality Status --------- ------ Urinalysis with Reflex C...[[id number]] Extra Urine Toney Tube[[id number]] Please view results for these tests on the individual orders. URINALYSIS WITH REFLEX CULTURE AND MICROSCOPIC EXTRA URINE TONEY TUBE PH, BODY FLUID LACTATE DEHYDROGENASE, BODY FLUID Narrative: The following orders were created for panel order Lactate Dehydrogenase, Body Fluid. Procedure Abnormality Status --------- ------ Lactate Dehydrogenase, B...[[id number]] In process Please view results for these tests on the individual orders. GLUCOSE, BODY FLUID Narrative: The following orders were created for panel order Glucose, Body Fluid. Procedure Abnormality Status --------- ------ Glucose, Body Fluid[[id number]] In process Please view results for these tests on the individual orders. PROTEIN, TOTAL, BODY FLUID Narrative: The following orders were created for panel order Protein, Total, Body Fluid. Procedure Abnormality Status --------- ------ Protein, Total, Body Fluid[[id number]] In process Please view results for these tests on the individual orders. BODY FLUID CELL COUNT WITH DIFFERENTIAL Narrative: The following orders were created for panel order Body Fluid Cell Count With Differential. Procedure Abnormality Status --------- ------ Body Fluid Cell Count[[id number]] In process Body Fluid Differential[[id number]] In process Please view results for these tests on the individual orders. ALBUMIN, BODY FLUID Narrative: The following orders were created for panel order Albumin, Body Fluid. Procedure Abnormality Status --------- ------ Albumin, Body Fluid[[id number]] In process Please view results for these [...] Yohana Huang 10/04/2024 2:28 PM Dictation workstation: [id number] Procedures Medical Decision Making Patient is a 59-year-old male with a hx of cirrhosis who presents to the emergency department with a chief complaint of abdominal pain from [facility]. He reports increased abdominal pain that he [...] Oleary PA-C 10/04/[address] [facility] Work Phone: 1([phone]) 227-696902-26-2025 Evaluation note* Diagnosis Onset Date Resolution Status Admit Date Abdominal ascites acute Februar y 2024 9:35am Clostridium difficile colitis acute October 29, 2024 12:43am History of uric acid staghor n calculus acute October 29, 2024 12:43am Hyponatremia acute October 29, 2024 12:43am Leukocytosis acute October 29, 2024 12:43am Obesity (BMI 30.0-34.9) acute M arch 2024 12:43am Chronic abdominal pain chronic [facility] 2024 12:43am Chronic back pain chronic October [...] 2 :16pm Umbilical hernia acute January 2:16pm [facility] Work Phone: 1(405) 316-466802-26-2025 Procedure note [facility] Medical Records Department [address] [place] [address] Operative Report 09/29/24 1048 MR#: [id number] Acct: [id number] Name: FRANKLIN WIGGINS Rep #:[id number] : 1965 59 From: Jasmine gusman PITCH FLAKER PITCH FLAKER-C PCP: Care Physician,No Primary Status :REG CLI Location: [place] Problems Associated Problem List Diagnoses (1) Abdominal ascites: Multi Select [facility] Radiology Radiology US Procedures: 81105 Paracentesis Operative Report (Standard) Operative Information Date of Procedure: 09/29/24 Pre-Operative Diagnosis: Abdominal ascites Post-Operative Diagnosis: Abdominal ascites Surgery/Procedure Performed: Ultrasound-guided paracentesis presetter operator: No Type of Anesthesia: Local Procedure Start [...] the peritoneal cavity was accessed with a 5-Romansh paracentesis needle/catheter system. The trocar was removed. [...] 09/29/24 1053 Cosigner Signature (if applicable): CC: MOE-C Jasmine Morocho; No Primary Care Physician; DIANE CALLAHAN~ Signed [facility]02-02-2025 Evaluation note* Diagnosis Onset Date [...] 2024 12:43am Chronic abdominal pain chronic [facility] 2024 12:43am Chronic back pain chronic October [...] acute November 23 4:19pm Hepatic cirrhosis acute Latanya 2 2nd, 2025 4:19pm Staghorn calculus acute November 032024 4:19pm [...] 6:06am Fall acute January 02, 2025 6:06am [facility] Work Phone: 1(185) 155-288502-02-2025 Evaluation note* Diagnosis Onset Date Resolution Status [...] 2:16pm Sepsis acute January 09, 2025 2:16pm [facility] Work Phone: [phone]) [phone] Evaluation note* Diagnosis Onset Date Resolution Status [...] inactive Februar 2024 1:46am Chronic hypotension inactive u ace2024 1:46am Hepatic encephalopathy inactive bruary 2024 1:46am Hyperbilirubinemia inactive 2024 1:46am Hypotension inactive September 05, 2024 1:46am 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) inactive September 05 1:46am Obesity (BMI 30-39.9) inactive Sep ru2024 1:46am ABBY on CPAP inactive September 05, 2024 1:46am Cirrhosis of liver deleted 2024 1:46am Abdominal ascites acute uar y 2024 9:35am [facility] Work Phone: 1(502) 809-353001-27-2025 Evaluation note* Diagnosis Onset Date Resolution Status [...] inactive ua2024 1:46am Chronic hypotension inactive u 2024 1:46am Hepatic encephalopathy inactive Fe 2024 1:46am Hyperbilirubinemia inactive 2024 1:46am Hypotension [...] 29 12:43am Chronic abdominal pain chronic [facility] 2024 12:43am Chronic back pain chronic October 032024 12:43am [facility] Work Phone: 1(289) 613-898701-27-2025 Evaluation note* Diagnosis Onset Date Resolution Status [...] 29 12:43am Chronic abdominal pain chronic [facility] 2024 12:43am Chronic back pain chronic October 032024 12:43am [facility] Work Phone: [phone]) [phone] Evaluation note* Diagnosis Onset Date Resolution Status [...] hypotension inactive ace2024 1:46am Hepatic encephalopathy inactive Fe bruary 2024 1:46am Hyperbilirubinemia inactive 2024 1:46am Hypotension inactive September 05, 2024 1:46am 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) inactive September 05, 025 1:46am Obesity (BMI 30-39.9) inactive Fe [...] 4:28am Staghorn calculus acute November 032024 4:28am [facility] Work Phone: 1(521) 610-197001-27-2025 Evaluation note* Diagnosis Onset Date Resolution Status [...] 2024 12:43am Chronic abdominal pain chronic [facility] 2024 12:43am Chronic back pain chronic October [...] infection) resolv ed November 28, 2024 4:51pm [facility] Work Phone: Discharge summary Author Herberth Carlson [facility] Note Date/Time November 21, 2024 4:1 6am [facility] Medical Records Department [address] [place] [address] Emergency Department Summary 11/21/24 MR#: [id number] Acct: [id number] Name: FRANKLIN WIGGINS Rep #:[id number] : [...] discontinue his lactulose. He was recently admitted [facility] for cirrhosis and other issues, he states [...] toilet after multiple attempts over couple hours. [facility] Medical History Diarrhea Sepsis [...] (Auto) 68.7 Lymph % (Auto) 13.9 L Kenton % (Auto) 9.2 Eos % (Auto) 7.2 [...] Sl Cldy Urine pH 6.0 Ur Specific [place] 1.015 Urine Protein 500 H Urine Glucose [...] process. Follow-up to resolution recommended. Reading Location: [facility] Management Discussion w/another healthcare provider: Hospitalist Discharge [...] Primary [Primary Care Provider] - Print Language: Nepalese Disposition Disposition: Acute Care Hospital [facility] What to do if you have Problems For any increased pain, shortness of breath, bleeding, nausea or vomiting, chestpain, or any unexpected problems, contact your Primary Care Provider. Call [facility] ([phone]) or report to the closest Emergency Room. Call 911 if necessary. 11/21/24 0416 <Electronically signed by Herberth Carlson MD> Cosigner Signature (if applicable): CC: No Primary Care Physician ~ Signed [facility] Work Phone: Discharge summary Author Mina Blood [facility] Note Date/Time December 30, 2024 5:19a m [facility] Medical Records Department [address] [place] [address] Emergency Department Summary 12/30/24 MR#: [id number] Acct: [id number] Name: FRANKLIN WIGGINS Rep #:[id number] : [...] recent trauma prior to the pain beginning. [facility] Medical History Weakness Diarrhea [...] mg tablet (Xifaxan) 550 mg PO BID [facility] ea #60 tabs 09/02/24 11/28/24 Rx [...] (Auto) 69.7 Lymph % (Auto) 14.0 L Kenton % (Auto) 9.1 Eos % (Auto) 6.2 [...] Clarity Cloudy Urine pH 6.5 Ur Specific [place] 1.010 Urine Protein 100 H Urine Glucose [...] No evidence of acute disease. Reading Location: [facility] Chest x-ray as interpreted by the [...] you have any further concerns Print Language: Nepalese Disposition Disposition: Home, Self Care What to do if you have Problems For any increased pain, shortness of breath, bleeding, nausea or vomiting, chestpain, or any unexpected problems, contact your Primary Care Provider. Call [facility] ([phone]) or report to the closest Emergency Room. Call 911 if necessary. 12/30/24 0519 <Electronically signed by Mina Blood DO> Cosigner Signature (if applicable): CC: YG Elias ~ Signed [facility] Work Phone: Discharge summary Author Roddy Reeves [facility] Note Date/Time January 02, 2025 6:00a m [facility] Medical Records Department [address] [place] [address] Emergency Department Summary 01/02/25 MR#: [id number] Acct: [id number] Name: FRANKLIN WIGGINS Rep #:[id number] : 1965 59 From: Roddy Reeves DO PCP: Josy Elias NP-C Status:REG E [...] was here recently and was sent home. [facility] Medical History Weakness Diarrhea [...] (Auto) 68.0 Lymph % (Auto) 12.2 L Kenton % (Auto) 11.9 H Eos % (Auto) [...] Clarity Turbid Urine pH 6.0 Ur Specific [place] 1.015 Urine Protein 100 H Urine Glucose [...] insufficiency fracture again noted, unchanged. Reading Location: [id number] Brain CT 01/02/25 03:55 IMPRESSION: No intracranial hemorrhage, mass effect or calvarial fracture. Moderate volume loss, atrophy again noted. Mild left maxillary sinus disease appears mildly decreased from the prior study. Reading Location: [facility] Cervical Spine CT 01/02/25 03:55 IMPRESSION: No fracture or malalignment. Multilevel spondylosis/discogenic change greatest at C5-6 Reading Location: [facility] Discharge Plan Triage Chief Complaint: Weakness [...] NP-C [Primary Care Provider] - Print Language: Nepalese Disposition Disposition: Acute Care Hospital [facility] What to do if you have Problems For any increased pain, shortness of breath, bleeding, nausea or vomiting, chestpain, or any unexpected problems, contact your Primary Care Provider. Call [facility] ([phone]) or report to the closest Emergency Room. Call 911 if necessary. 01/02/25 0600 <Electronically signed by Roddy Reeves DO> Cosigner Signature (if applicable): CC: YG Elias ~ Signed [facility] Work Phone: Discharge summary Author Mina Blood [facility] Note Date/Time February 08, 2025 3:03a m [facility] Medical Records Department [address] [place] [address] Emergency Department Summary 02/08/25 MR#: [id number] Acct: [id number] Name: FRANKLIN WIGGINS Rep #:[id number] : [...] bouts of constipation fevers chills or dysuria. [facility] Medical History (Updated 02/08/25 @ 03:[address] Mina Blood, DO) VRE (vancomycin resistant enterococcus) culture positive [...] mg tablet (Xifaxan) 550 mg PO BID [facility] ea #60 tabs 09/02/24 11/28/24 Rx acetaminophen [...] surgery as fat necrosis is a nonemergent ukv-zrqh-evlnhfgztzu process. The patient will be given pain [...] 72.8 H Lymph % (Auto) 12.8 L Kenton % (Auto) 8.1 Eos % (Auto) 5.4 [...] double-J stent in place. Anasarca. Reading [facility] [address] Discharge Plan Triage Chief Complaint: Abd Pain [...] Ambulatory Orders: Paracentesis with US (Routine) Facility: [facility] - Location: [facility] Ordered By: Dr. Mina Blood [...] you have any further concerns. Print Language: Nepalese Disposition Disposition: Home, Self Care What to do if you have Problems For any increased pain, shortness of breath, bleeding, nausea or vomiting, chestpain, or any unexpected problems, contact your Primary Care Provider. Call [facility] ([phone]) or report to the closest Emergency Room. Call 911 if necessary. 02/08/25 0303 <Electronically signed by Mina Blood DO> Cosigner Signature (if applicable): CC: Dr. Jerald Sherwood MD ~ Signed [facility] Work Phone: Evaluation note* Diagnosis Other ascites- Primary Abdominal pain, generalized Cirrhosis of liver with ascites, unspecified hepatic cirrhosis type (Multi) Peripheral edema Edema Coagulopathy (Multi) Other and unspecified coagulation defects Hyperbilirubinemia Disorders of bilirubin excretion documented in this encounter [facility] Work Phone: Evaluation note* Diagnosis Metabolic dysfunction-associated steatohepatitis (MASH)- Primary [facility] Liver transplant candidate- Primary Metabolic dysfunction-associated steatohepatitis (MASH) [facility] Diagnosis Pre-transplant evaluation for liver transplant- Primary [facility] Diagnosis Liver transplant candidate- Primary Pre-operative clearance Preoperative examination, unspecified [facility]* Diagnosis Screening for genitourinary condition Screening for other and unspecified genitourinary condition [facility] Author Buster Fuchs [facility] Note Date/Time January 02, 2025 6:44a m [facility] Medical Records Department [address] [place] [address] H&P Exam - Hospitalist 01/02/25 0556 MR#: [id number] Acct: [id number] Name: FRANKLIN WIGGINS Rep #:[id number] : 1965 59 From: Buster duarte MD PCP: YG Pena Status:ADM I N Location: [place] [address] HPI - General General Date of Admission: [...] that time he was transferred to [facility] 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 Was not considered to be a liver transplant candidate and was placed on anticoagulation. He has had a couple of readmissions for weakness and debility. [place] to possibly have aUTI given a staghorn [...] Heis receiving potassium infusion in the ER. [facility] Medical History Weakness Diarrhea Sepsis Acidosis, [...] (Auto) 68.0, Lymph % (Auto) 12.2 L, Kenton % (Auto) 11.9 H, Eos % (Auto) [...] insufficiency fracture again noted, unchanged. Reading Location: [facility] Brain CT 01/02/25 03:55 IMPRESSION: No intracranial hemorrhage, mass effect or calvarial fracture. Moderate volume loss, atrophy again noted. Mild left maxillary sinus disease appears mildly decreased from the prior study. Reading Location: [facility] Cervical Spine CT 01/02/25 03:55 IMPRESSION: No fracture or malalignment. Multilevel spondylosis/discogenic change greatest at C5-6 Reading Location: [facility] Assessment & Plan Assessment/Plan (1) Fall: [...] once verified Charges/Coding Visit Charges Inpatient E&M: 78886 Init Hosp L2 01/02/25 0644 <Electronically signed by Buster Fuchs MD> Cosigner Signature (if applicable): CC: YG Elias; Dr. Buster Fuchs MD~ Signed [facility] Work Phone: Hospital Discharge instructions* Attachments The following attachments cannot be sent through Care Everywhere. * Cirrhosis (Nepalese) * Abdominal pain (Nepalese) [facility] Work Phone: Hospital Discharge instructions Additional [...] the ER should you have any further [facility] Work Phone: Hospital Discharge instructionsAdditional Instructions Your [...] the ER should you have any further concerns.[facility] Work Phone: Hospital Discharge instructionsAdditional Instructions Thank you for trusting us with your care today! Please take Tylenol (2 pills, 650 mg), ibuprofen (2 pills, 400 mg) every 6 hours as needed for pain and fever control. Please return to the emergency department if your symptoms change or worsen. Please follow with your primary care physician for further outpatient evaluation and management.[facility] Work Phone: Hospital Discharge instructionsAdditional Instructions Take your short acting insulin and long-acting insulin as home as prescribed, you may need to give additional units if it continues to run high. Contact your hospice group.[facility] Work Phone: Reason for referral (narrative)No reason for referral information availableWooHolzer Health System Work Phone: Summary Purpose Family History No [...] Will No August 21 2:51pm Power of Putter In No August 21, 2024 2:51pm Living Will No August 30 12:39am Power of Putter In No August 30, 2024 12:39am Living Will No September 05 4:42am Power of Putter In No September 05, 2024 4:42am Advance Directive Response Recorded Date/ Time Living Will No August 21 2:51pm Do you have a Healthcare Power of Putter In? No August 21, 2024 2:51pm Living Will No August 30 12:39am Do you have a Healthcare Power of Putter In? No August 30, 2024 12:39am Living Will No September 05 4:42am Do you have a Healthcare Power of Putter In? No September 05, 2024 4:42am Living Will No October 28, 2024 5:24pm Do you have a Healthcare Power of Putter In? No October 28, 2024 5:24pm Advance Directive Response Recorded Date/ Time Living Will No August 21 2:51pm Do you have a Healthcare Power of Putter In? No August 21, 2024 2:51pm Living Will No August 30 12:39am Do you have a Healthcare Power of Putter In? No August 30, 2024 12:39am Living Will No September 05 4:42am Do you have a Healthcare Power of Putter In? No September 05, 2024 4:42am Living Will No October 29, 2024 1:46am Do you have a Healthcare Power of Putter In? No October 29, 2024 1:46am Date Activated Date Inactivated Comments 11/11/2024 7:22 AM Question Answer Comments Full Code Order Discussed With: Patient Date Activated Date Inactivated Comments 11/11/2024 7:22 AM Advance Directive Response Recorded Date/ Time Living Will No August 21 2:51pm Do you have a Healthcare Power of Putter In? No August 21, 2024 2:51pm Living Will No August 30 12:39am Do you have a Healthcare Power of Putter In? No August 30, 2024 12:39am Living Will No September 05 4:42am Do you have a Healthcare Power of Putter In? No September 05, 2024 4:42am Living Will No October 29, 2024 1:46am Do you have a Healthcare Power of Putter In? No October 29, 2024 1:46am Living Will Yes November 21, 2024 1:32am Do you have a Healthcare Power of Putter In? Yes November 21, 2024 1:32am Name of Medical Power of Putter In anne Hernandez November 21, 2024 1:32am Advance Directive Response Recorded Date/ Time Living Will No August 21 2:51pm Do you have a Healthcare Power of Putter In? No August 21, 2024 2:51pm Living Will No August 30 12:39am Do you have a Healthcare Power of Putter In? No August 30, 2024 12:39am Living Will No September 05 4:42am Do you have a Healthcare Power of Putter In? No September 05, 2024 4:42am Living Will No October 29, 2024 1:46am Do you have a Healthcare Power of Putter In? No October 29, 2024 1:46am Living Will Yes November 21, 2024 5:32am Do you have a Healthcare Power of Putter In? Yes November 21, 2024 5:32am Name of Medical Power of Putter In anne Hernandez November 21, 2024 5:32am Do you have a Healthcare Power of Putter In? No November 28, 2024 5:49pm Advance Directive Response Recorded Date/ Time Living Will No August 30 12:39am Do you have a Healthcare Power of Putter In? No August 30, 2024 12:39am Living Will No September 05 4:42am Do you have a Healthcare Power of Putter In? No September 05, 2024 4:42am Living Will No October 29, 2024 1:46am Do you have a Healthcare Power of Putter In? No October 29, 2024 1:46am Living Will Yes November 21, 2024 5:32am Do you have a Healthcare Power of Putter In? Yes November 21, 2024 5:32am Name of Medical Power of Putter In anne Hernandez November 21, 2024 5:32am Do you have a Healthcare Power of Putter In? No November 28, 2024 5:49pm Advance Directive Response Recorded Date/ Time Living Will No August 30 12:39am Do you have a Healthcare Power of Putter In? No August 30, 2024 12:39am Living Will No September 05 4:42am Do you have a Healthcare Power of Putter In? No September 05, 2024 4:42am Living Will No October 29, 2024 1:46am Do you have a Healthcare Power of Putter In? No October 29, 2024 1:46am Living Will Yes November 21, 2024 5:32am Do you have a Healthcare Power of Putter In? Yes November 21, 2024 5:32am Name of Medical Power of Putter In anne Hernandez November 21, 2024 5:32am Do you have a Healthcare Power of Putter In? No November 28, 2024 5:49pm Do you have a Healthcare Power of Putter In? No December 26, 2024 10:02am Advance Directive Response Recorded Date/ Time Living Will No August 30 12:39am Do you have a Healthcare Power of Putter In? No August 30, 2024 12:39am Living Will No September 05 4:42am Do you have a Healthcare Power of Putter In? No September 05, 2024 4:42am Living Will No October 29, 2024 1:46am Do you have a Healthcare Power of Putter In? No October 29, 2024 1:46am Living Will Yes November 21, 2024 5:32am Do you have a Healthcare Power of Putter In? Yes November 21, 2024 5:32am Name of Medical Power of Putter In anne Hernandez November 21, 2024 5:32am Do you have a Healthcare Power of Putter In? No November 28, 2024 5:49pm Do you have a Healthcare Power of Putter In? No December 26, 2024 10:02am Do you have a Healthcare Power of Putter In? No December 30, 2024 1:06am Advance Directive Response Recorded Date/ Time Do you have a Healthcare Power of Putter In? No January 02, 2025 2:59am Living Will No September 05 4:42am Do you have a Healthcare Power of Putter In? No September 05, 2024 4:42am Living Will No October 29, 2024 1:46am Do you have a Healthcare Power of Putter In? No October 29, 2024 1:46am Living Will Yes November 21, 2024 5:32am Do you have a Healthcare Power of Putter In? Yes November 21, 2024 5:32am Name of Medical Power of Putter In anne Hernandez November 21, 2024 5:32am Do you have a Healthcare Power of Putter In? No November 28, 2024 5:49pm Do you have a Healthcare Power of Putter In? No December 26, 2024 10:02am Do you have a Healthcare Power of Putter In? No December 30, 2024 1:06am Advance Directive Response Recorded Date/ Time Do you have a Healthcare Power of Putter In? No January 02, 2025 8:14am Living Will No September 05 4:42am Do you have a Healthcare Power of Putter In? No September 05, 2024 4:42am Living Will No October 29, 2024 1:46am Do you have a Healthcare Power of Putter In? No October 29, 2024 1:46am Living Will Yes November 21, 2024 5:32am Do you have a Healthcare Power of Putter In? Yes November 21, 2024 5:32am Name of Medical Power of Putter In anne Hernandez November 21, 2024 5:32am Do you have a Healthcare Power of Putter In? No November 28, 2024 5:49pm Do you have a Healthcare Power of Putter In? No December 26, 2024 10:02am Do you have a Healthcare Power of Putter In? No December 30, 2024 1:06am Advance Directive Response Recorded Date/ Time Do you have a Healthcare Power of Putter In? No January 02, 2025 8:14am Living Will No September 05 4:42am Do you have a Healthcare Power of Putter In? No September 05, 2024 4:42am Living Will No October 29, 2024 1:46am Do you have a Healthcare Power of Putter In? No October 29, 2024 1:46am Living Will Yes November 21, 2024 5:32am Do you have a Healthcare Power of Putter In? Yes November 21, 2024 5:32am Name of Medical Power of Putter In anne Hernandez November 21, 2024 5:32am Do you have a Healthcare Power of Putter In? No November 28, 2024 5:49pm Do you have a Healthcare Power of Putter In? No December 26, 2024 10:02am Do you have a Healthcare Power of Putter In? No December 30, 2024 1:06am Do you have a Healthcare Power of Putter In? No January 09, 2025 10:10am Advance Directive Response Recorded Date/ Time Do you have a Healthcare Power of Putter In? No January 02, 2025 8:14am Living Will No October 29, 2024 1:46am Do you have a Healthcare Power of Putter In? No October 29, 2024 1:46am Living Will Yes November 21, 2024 5:32am Do you have a Healthcare Power of Putter In? Yes November 21, 2024 5:32am Name of Medical Power of Putter In anne Hernandez November 21, 2024 5:32am Do you have a Healthcare Power of Putter In? No November 28, 2024 5:49pm Do you have a Healthcare Power of Putter In? No December 26, 2024 10:02am Do you have a Healthcare Power of Putter In? No December 30, 2024 1:06am Do you have a Healthcare Power of Putter In? No January 09, 2025 3:31pm Advance Directive Response Recorded Date/ Time Do you have a Healthcare Power of Putter In? No January 02, 2025 8:14am Do you have a Healthcare Power of Putter In? No January 28, 2025 3:02am Living Will No October 29, 2024 1:46am Do you have a Healthcare Power of Putter In? No October 29, 2024 1:46am Living Will Yes November 21, 2024 5:32am Do you have a Healthcare Power of Putter In? Yes November 21, 2024 5:32am Name of Medical Power of Putter In anne Hernandez November 21, 2024 5:32am Do you have a Healthcare Power of Putter In? No November 28, 2024 5:49pm Do you have a Healthcare Power of Putter In? No December 26, 2024 10:02am Do you have a Healthcare Power of Putter In? No December 30, 2024 1:06am Do you have a Healthcare Power of Putter In? No January 09, 2025 3:31pm Advance Directive Response Recorded Date/ Time Do you have a Healthcare Power of Putter In? No January 02, 2025 8:14am Do you have a Healthcare Power of Putter In? No January 28, 2025 3:02am Living Will No October 29, 2024 1:46am Do you have a Healthcare Power of Putter In? No October 29, 2024 1:46am Living Will Yes November 21, 2024 5:32am Do you have a Healthcare Power of Putter In? Yes November 21, 2024 5:32am Name of Medical Power of Putter In anne Hernandez November 21, 2024 5:32am Do you have a Healthcare Power of Putter In? No November 28, 2024 5:49pm Do you have a Healthcare Power of Putter In? No December 26, 2024 10:02am Do you have a Healthcare Power of Putter In? No December 30, 2024 1:06am Do you have a Healthcare Power of Putter In? No January 09, 2025 3:31pm Do you have a Healthcare Power of Putter In? No February 07, 2025 10:20pm Advance Directive Response Recorded Date/ Time Do you have a Healthcare Power of Putter In? No January 02, 2025 8:14am Do you have a Healthcare Power of Putter In? No January 28, 2025 3:02am Living Will No October 29, 2024 1:46am Do you have a Healthcare Power of Putter In? No October 29, 2024 1:46am Living Will Yes November 21, 2024 5:32am Do you have a Healthcare Power of Putter In? Yes November 21, 2024 5:32am Name of Medical Power of Putter In anne Hernandez November 21, 2024 5:32am Do you have a Healthcare Power of Putter In? No November 28, 2024 5:49pm Do you have a Healthcare Power of Putter In? No December 26, 2024 10:02am Do you have a Healthcare Power of Putter In? No December 30, 2024 1:06am Do you have a Healthcare Power of Putter In? No January 09, 2025 3:31pm Do you have a Healthcare Power of Putter In? No February 07, 2025 10:20pm Do you have a Healthcare Power of Putter In? No February 13, 2025 4:40pm Advance Directive Response Recorded Date/ Time Do you have a Healthcare Power of Putter In? No January 02, 2025 8:14am Do you have a Healthcare Power of Putter In? No January 28, 2025 3:02am Living Will No October 29, 2024 1:46am Do you have a Healthcare Power of Putter In? No October 29, 2024 1:46am Living Will Yes November 21, 2024 5:32am Do you have a Healthcare Power of Putter In? Yes November 21, 2024 5:32am Name of Medical Power of Putter In anne Hernandez November 21, 2024 5:32am Do you have a Healthcare Power of Putter In? No November 28, 2024 5:49pm Do you have a Healthcare Power of Putter In? No December 26, 2024 10:02am Do you have a Healthcare Power of Putter In? No December 30, 2024 1:06am Do you have a Healthcare Power of Putter In? No January 09, 2025 3:31pm Do you have a Healthcare Power of Putter In? No February 07, 2025 10:20pm Do you have a Healthcare Power of Putter In? No February 13, 2025 4:40pm Do you have a Healthcare Power of Putter In? No February 16, 2025 6:30pm Advance Directive Response Recorded Date/ Time Do you have a Healthcare Power of Putter In? No January 02, 2025 8:14am Do you have a Healthcare Power of Putter In? No January 28, 2025 3:02am Living Will No October 29, 2024 1:46am Do you have a Healthcare Power of Putter In? No October 29, 2024 1:46am Living Will Yes November 21, 2024 5:32am Do you have a Healthcare Power of Putter In? Yes November 21, 2024 5:32am Name of Medical Power of Putter In anne Hernandez November 21, 2024 5:32am Do you have a Healthcare Power of Putter In? No November 28, 2024 5:49pm Do you have a Healthcare Power of Putter In? No December 26, 2024 10:02am Do you have a Healthcare Power of Putter In? No December 30, 2024 1:06am Do you have a Healthcare Power of Putter In? No January 09, 2025 3:31pm Do you have a Healthcare Power of Putter In? No February 07, 2025 10:20pm Do you have a Healthcare Power of Putter In? No February 13, 2025 4:40pm Do you have a Healthcare Power of Putter In? No February 16, 2025 7:47pm Advance Directive Response Recorded Date/ Time Do you have a Healthcare Power of Putter In? No January 02, 2025 8:14am Do you have a Healthcare Power of Putter In? No January 28, 2025 3:02am Do you have a Healthcare Power of Putter In? No February 25, 2025 5:00pm Living Will No October 29, 2024 1:46am Do you have a Healthcare Power of Putter In? No October 29, 2024 1:46am Living Will Yes November 21, 2024 5:32am Do you have a Healthcare Power of Putter In? Yes November 21, 2024 5:32am Name of Medical Power of Putter In Maryhéctor ramgabrielle November 21, 2024 5:32am Do you have a Healthcare Power of Putter In? No November 28, 2024 5:49pm Do you have a Healthcare Power of Putter In? No December 26, 2024 10:02am Do you have a Healthcare Power of Putter In? No December 30, 2024 1:06am Do you have a Healthcare Power of Putter In? No January 09, 2025 3:31pm Do you have a Healthcare Power of Putter In? No February 07, 2025 10:20pm Do you have a Healthcare Power of Putter In? No February 13, 2025 4:40pm Do you have a Healthcare Power of Putter In? No February 16, 2025 7:47pm Do you have a Healthcare Power of Putter In? No March 11, 2025 5:16pm Chief Complaint and Reason for Visit Chief [...] SEPSIS, UTI, DIARRHEA & ABDOMINAL PAIN M [facility] 2024 12:43am Reason for Visit Admit Date [...] History of uric acid staghorn calculus M [facility] 2024 12:43am Leukocytosis October 29, 2024 12: [...] 10:48am SEPSIS, UTI, DIARRHEA & ABDOMINAL PAIN [facility] 2024 12:43am SEPSIS, UTI, DIARRHEA [...] 7:41am UTI AND LEFT ABDOMINAL WALL CELLULITIS [facility] 2024 11:10am ABD PAIN December 15, [...] Date SEPSIS WITH STAGHORN CALCULI September 2n [id number] [...] September 1:46am SEPSIS WITH STAGHORN CALCULI September 4t [id number] [...] Date SEPSIS, UTI, DIARRHEA & ABDOMINAL PAIN 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 March 04, 2025 11:45am PLEURX CATH March 10, 2025 1:5 2pm Hyperglycemia March 11, 2025 5:0 5pm Reason for Visit Admit Date Clostridium difficile [...] Acute UTI January 28, 2025 7:00 am Lactic acidosis January 28, 2025 7:00 am Hepatic encephalopathy January 28, 2025 7 :00am Umbilical hernia January 28, 2025 7:00 am Chronic anemia February 16, 2025 6:26 pm Cirrhosis of liver with ascites February 6:26pm Decompensated cirrhosis February 16, 2025 6:26pm Elevated liver enzymes February 16, 2025 6 :26pm History of diabetes mellitus February 16, 2025 6:26pm Hyperammonemia February 16, 2025 6:26 pm Acute hepatic encephalopathy February 25, 2025 4:13pm Cirrhosis of liver with ascites February 4:13pm Diffuse abdominal pain February 25, 2025 4 :13pm Elevated liver enzymes February 25, 2025 4 :13pm Hepatic encephalopathy February 25, 2025 4 :13pm Hyperammonemia February 25, 2025 4:13 pm Hepatic cirrhosis March 10, 2025 1:5 2pm Additional Source Comments Reason for Visit (unrecogniz ed section and content) Reason Comments Dental Clearance - Transplant Liver Specialty Diagnoses / Procedures Referred By Ginny alex Referred To Contact HOSP INPATIENT Diagnoses 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 Michael Garza MD Other Provider Active Start: 2024 End: November 11, 2024 Dr. Zachariah Glover MD Other Provider Active Sta rt: October 29, 2024 End: November 11, 2024 Dr. Scott Weston DO Other Provider Active Sta rt: October 29, 2024 End: November 11, 2024 Yue Delgadillo PITCH FLAKER, PITCH FLAKER-C Other Provider Active St art: October 29, [...] Active Start : October 29, 2024 Dr. Btety Pruett MD Other Provider [...] Star t: November 03, 2024 Dr. Buster Fcuhs MD Other Provider Active Start: November 03, [...] Star t: November 05, 2024 Dr. Buster Fcuhs MD Other Provider Active Start: November 05, [...] Active Star t: November 10, 2024 Dr. Michael Garza MD Other Provider Active Start: A pri2024 Dr. Zachariah Glover MD Other Provider Active Sta rt: November 10, 2024 Dr. Scott Weston DO Other Provider Active Sta rt: November 10, 2024 Yue Delgadillo PITCH FLAKER, PITCH FLAKER-C Other Provider Active St art: November 10, 2024 Team Status: Active Member Role Status Dates No Primary Care Physician Primary Care Provider Active Start: November 21, 2024 Dr. Herberth Carlson MD Emergency Provider Active Start: November 21, 2024 Dr. Jae Ash DO Admit Provider Active Start: November 21, 2024 Dr. aJe Ash DO Attending Provider Active Start: November [...] 23, 2024 End: November 25, 2024 Dr. Anruag Irene MD Attending Provider Active Start: November [...] Member Role Status Dates Josydominique Baumannhof , PITCH FLAKER-C Primary Care Provider Active Start: December 07, 2024 End: December 07, 2024 Josydominique Baumannhof , PITCH FLAKER-C Attending Provider Active Start: December 07, 2024 End: December 07, 2024 Team Status: Inactive Member Role Status Dates Josydominique Baumannhof , PITCH FLAKER-C Primary Care Provider Active Start: December 15, 2024 End: December 15, 2024 Josydominique Baumannhof , PITCH FLAKER-C Attending Provider Active Start: December 15, 2024 End: December 15, 2024 Josydominique Baumannhof , PITCH FLAKER-C Referring Provider Active Start: December 15, 2024 End: December 15, 2024 Team Status: Inactive Member Role Status Dates Josydominique Baumannhof , PITCH FLAKER-C Primary Care Provider Active Start: December 26, 2024 End: December 26, 2024 Dr. Boone Carvajal , Attending Provider Active Start: December 26, 2024 End: December 26, 2024 Dr. Boone Carvajal , Emergency Provider Active Start: December 26, 2024 End: December 26, 2024 Team Status: Inactive Member Role Status Dates Josydominique Baumannhof , PITCH FLAKER-C Primary Care Provider Active Start: December 30, 2024 End: December 30, 2024 Dr. Mina Blood , Attending Provider Active Start: December 30, 2024 End: December 30, 2024 Dr. Mina Blood , DO Emergency Provider Active Start: December 30, 2024 End: December 30, 2024 Team Status: Inactive Member Role Status Dates Josydominique Baumannhoantoinette , PITCH FLAKER-C Primary Care Provider Active Start: January 02, [...] Pena Primary Care Provider Active Start: January 03, [...] Star t: January 10, 2025 Dr. Bola Brown , DO Other Provider Active Start : [...] Active Member Role Status Dates Josy Elias PITCH FLAKER-C Primary Care Provider Active Start: January 11, [...] Active Member Role Status Dates Josy Elias PITCH FLAKER-C Primary Care Provider Active Start: January 11, [...] Active Member Role Status Dates Josy Elias PITCH FLAKER-C Primary Care Provider Active Start: January 13, 2025 Dr. Breann Mendez DO Emergency Provider Active S tart: January 13, 2025 Dr. Yaritza Leo , Admit Provider Active Start : January 13, [...] Active Member Role Status Dates Josy Elias PITCH FLAKER-C Primary Care Provider Active Start: January 14, [...] NPC Primary Care Provider Active Start: January 15, 2025 Dr. rBeann Mendez DO Emergency Provider Active S tart: [...] tart: January 16, 2025 Dr. Yaritza Leo , Admit Provider Active Start : January 16, [...] Anderson , DO Emergency Provider Active Start: August 29, [...] Active Start: August 30, 2024 Dr. Lupillo Rbobins MD Other Provider Active Star t: August [...] St art: August 31, 2024 Dr. Nadeem uA MD Other Provider [...] Sta rt: August 31, 2024 Dr. Jeff oCrnelius MD Other Provider Active St art: August [...] 2024 End: September 15, 2024 Dr. Hill Crao DO Other Provider Active Start: September 05, 2024 End: September 15, 2024 Dr. Anurag Irene MD Other Provider Active Sta rt: September 05, 2024 End: September 15, 2024 Dr. Boone Izquierdo , Attending Provider Active Start: September 05, 2024 [...] Active Start: September 08, 2024 Dr. Rachel Godman , DO Emergency Provider Active Start: September 08, 2024 Dr. Hill Caro DO Admit Provider Active Start: September 08, 2024 Dr. Hill Caro , DO Other Provider Active Start: September 08, [...] September 09, 2024 Dr. Jae Ash , Other Provider Active Start: September 09, 2024 [...] September 13, 2024 Dr. Boone Izquierdo , Other Provider Active Star t: September 13, [...] Other Provider Active Start: 2024 Jasmine Morocho PITCH FLAKER, PITCH FLAKER-C Attending Provider Active Start: September 29, 2024 [employer] Relationship Specialty Start Date End Date Maurice Rincon MD [address] [place] [address] PCP - General Internal Medicine 09/21/24 Team [...] Pena Primary Care Provider Active Start: December 26, 2024 End: December 26, 2024 Dr. Boone Carvajal DO Emergency Provider Active Start: December 26, 2024 End: December 26, 2024 Team Status: Inactive Member Role Status Dates Josy Baumannmilagros PITCH FLAKER-C Primary Care Provider Active Start: December 30, 2024 End: December 30, 2024 Dr. Mina Blood , Emergency Provider Active Start: December 30, 2024 End: December 30, 2024 Team Status: Active Member Role Status Dates Josydominique Elias PITCH FLAKER-C Primary Care Provider Active Start: January 02, 2025 Dr. Roddy Reeves , Emergency Provider Active Start: January 02, 2025 Dr. Buster Fuchs MD Admit Provider Active Start: January 02, 2025 Dr. Buster Fuchs MD Attending Provider Active Start: January 02, 2025 Dr. Buster Fuchs MD Other Provider Active Start: January 02, 2025 Team Status: Active Member Role Status Dates Josy Elias PITCH FLAKER-C Primary Care Provider Active Start: January 09, 2025 Dr. Breann Mendez DO Emergency Provider Active S tart: January 09, 2025 Dr. Yaritza Leo DO Admit Provider Active Start : January 09, 2025 Dr. Yaritza Leo DO Attending Provider Active S tart: January 09, 2025 Team Status: Active Member Role Status Dates Josy Elias PITCH FLAKER-C Primary Care Provider Active Start: January 11, 2025 Dr. Breann Mendez DO Emergency Provider Active S tart: January 11, 2025 Dr. Yaritza Leo DO Admit Provider Active Start : January 11, 2025 Dr. Yaritza Leo DO Other Provider Active Start : January 11, 2025 Dr. Cileo Tovar MD Other Provider Active St art: [...] 29, 2024 End: November 11, 2024 Dr. Michael Garza MD Other Provider Active Start: 2024 End: November 11, 2024 Dr. Zachariah Glover MD Other Provider Active Sta rt: October 29, 2024 End: November 11, 2024 Dr. Scott Weston DO Other Provider Active Sta rt: October 29, 2024 End: November 11, 2024 Yue Delgadillo PITCH FLAKER, PITCH FLAKER-C Other Provider Active St art: October 29, [...] Active Star t: November 06, 2024 Dr. Bsuter Fuchs MD Other Provider Active Start: November [...] Active Star t: November 10, 2024 Dr. Michael Garza MD Other Provider Active Start: A pri2024 Dr. Zachariah Glover MD Other Provider Active Sta rt: November 10, 2024 Dr. Scott Weston , Other Provider Active Sta rt: November 10, 2024 Yue Delgadillo PITCH FLAKER, PITCH FLAKER-C Other Provider Active St art: November 10, [...] Active Star t: December 01, 2024 Dr. Kahtie Powers MD Other Provider Active Star t: December 01, 2024 Dr. Hill Acuña MD Attending Provider Active Start: December 01, 2024 Dr. Hill cAuña MD Other Provider Active Star t: December [...] Member Role/Relationship Status Dates Josy Tannhof , [employer]-C Primary Care Provider Active Start: December 07, 2024 End: December 07, 2024 Josy Tannhof , [employer]-C Attending Provider Active Start: December 07, 2024 End: December 07, 2024 Team Status: Inactive Member Role/Relationship Status Dates Josy Tannhof , [employer]-C Primary Care Provider Active Start: December 15, 2024 End: December 15, 2024 Josy Tannhof , [employer] F[employer]-C Attending Provider Active Start: December 15, 2024 End: December 15, 2024 Josy Tannhof , P[employer] F[employer]ER-C Referring Provider Active Start: December 15, 2024 End: December 15, 2024 Team Status: Inactive Member Role/Relationship Status Dates Josy Tannhof , P[employer]-C Primary Care Provider Active Start: December 26, 2024 End: December 26, 2024 Dr. Boone Carvajal DO Attending Provider Active Start: December 26, 2024 End: December 26, 2024 Dr. Boone Carvajal DO Emergency Provider Active Start: December 26, 2024 End: December 26, 2024 Team Status: Inactive Member Role/Relationship Status Dates Josy Tannhof , P[employer] F[employer]-C Primary Care Provider Active Start: December 30, 2024 End: December 30, 2024 Dr. Mina Blood DO Attending Provider Active Start: December 30, 2024 End: December 30, 2024 Dr. Mina Blood , DO Emergency Provider Active Start: December 30, 2024 End: December 30, 2024 Team Status: Inactive Member Role/Relationship Status Dates Josy Tannhof , P[employer] F[employer]-C Primary Care Provider Active Start: January 02, [...] Status: Active Member Role/Relationship Status Dates Josydominique Obrienf , P[employer] F[employer]ER-C Primary Care Provider Active Start: January 03, 2025 Dr. Roddy Reeevs DO Emergency Provider Active Start: January 03, 2025 Dr. Buster Fuchs MD Admit Provider Active Start: January 03, 2025 Dr. Buster Fuchs MD Other Provider Active Start: January 03, 2025 Dr. Hill Acuña MD Attending Provider Active Start: January 03, 2025 Dr. Hill Acuña MD Other Provider Active Star t: January 03, 2025 Team Status: Active Member Role/Relationship Status Dates Josydominique Elias , P[employer] F[employer]ER-C Primary Care Provider Active Start: January 04, [...] Member Role/Relationship Status Dates Josydominique Elias , P[employer] F[employer]ER-C Primary Care Provider Active Start: January 05, [...] Status: Inactive Member Role/Relationship Status Dates Josy Pastorhof , P[employer] F[employer]ER-C Primary Care Provider Active Start: January 09, [...] Active S tart: January 10, 2025 Dr. Yartiza Leo DO Admit Provider Active Start : [...] Star t: January 10, 2025 Dr. Young Richarsdon MD Other Provider Active Sta rt: January [...] Start : January 11, 2025 Dr. Yaritza eLo DO Other Provider Active Start : January 11, 2025 Dr. Cielo Tovar MD Attending Provider Active Start: January 11, 2025 Dr. Cielo Tovar MD Other Provider Active St art: January 11, 2025 Dr. Jefferson Malave MD Other Provider Active St art: January 11, 2025 Team Status: Active Member Role/Relationship Status Dates [facility] Active Start: January 11, [...] Active Member Role/Relationship Status Dates [facility] Primary Care Provider Active Start: January [...] Active Member Role/Relationship Status Dates Josy Elias [employer] Primary Care Provider Active Start: January 13, [...] Active Member Role/Relationship Status Dates Josy Elias [employer]C Primary Care Provider Active Start: January 14, [...] Active Member Role/Relationship Status Dates Josy Elias [employer]-C Primary Care Provider Active Start: January 19, [...] Active Member Role/Relationship Status Dates Josy Elias [employer] Primary Care Provider Active Start: January 21, 2025 Dr. Remus Ungur , DO Emergency Provider Active S tart: January 21, 2025 Dr. Yaritza Leo , DO Admit Provider Active Start : January [...] S tart: January 29, 2025 Dr. Yaritza Ahmet , DO Other Provider Active Start : [...] February 13, 2025 Dr. Luis Carlos Anderson , Emergency Provider Active Start: February 13, 2025 [...] tart: February 16, 2025 Dr. Jae Ash , DO Admit Provider Active Start: February 16, 2025 Dr. Jae Ash , DO Other Provider Active Start: February 16, [...] Start: February 17, 2025 Dr. Jae Ash , Other Provider Active Start: February 17, 2025 Dr. Anurag Irene MD Attending Provider Active Start: February 17, 2025 Dr. Anurag Irene MD Other Provider Active Sta rt: February 17, 2025 Dr. Niranjan Li , Other Provider Active St art: February 17, 2025 Team Status: Inactive Member Role/Relationship Status [...] 29, 2024 End: November 11, 2024 Dr. Michael Garza MD Other Provider Active Start: 2024 End: November 11, 2024 Dr. Zachariah Glover MD Other Provider Active Sta rt: October 29, 2024 End: November 11, 2024 Dr. Scott Weston , Other Provider Active Sta rt: October 29, 2024 End: November 11, 2024 Yeu Delgadillo PITCH FLAKER, P[employer]KER-C Other Provider Active St art: October 29, 2024 End: November 11, 2024 Team Status: Active Member Role/Relationship Status [...] Provider Active Start: November 25, 2024 Dr. Anurga Irene MD Other Provider Active Sta rt: [...] Member Role/Relationship Status Dates Josy Tannhof , P[employer]-C Primary Care Provider Active Start: December 07, 2024 End: December 07, 2024 Josy Tannhof , P[employer] F[employer]-C Attending Provider Active Start: December 07, 2024 End: December 07, 2024 Team Status: Inactive Member Role/Relationship Status Dates Josy Tannhof , P[employer] FLA[employer]-C Primary Care Provider Active Start: December 15, 2024 End: December 15, 2024 Josy Tannhof , P[employer] F[employer]-C Attending Provider Active Start: December 15, 2024 End: December 15, 2024 Josy Tannhof , P[employer] FLAKER-C Referring Provider Active Start: December 15, 2024 End: December 15, 2024 Team Status: Inactive Member Role/Relationship Status Dates Josy Tannhof , P[employer] F[employer]-C Primary Care Provider Active Start: December 26, 2024 End: December 26, 2024 Dr. Boone Carvajal , Attending Provider Active Start: December 26, 2024 End: December 26, 2024 Dr. Boone Carvajal , Emergency Provider Active Start: December 26, 2024 End: December 26, 2024 Team Status: Inactive Member Role/Relationship Status Dates Josy Tannhof , P[employer] F[employer]-C Primary Care Provider Active Start: December 30, 2024 End: December 30, 2024 Dr. Mina Blood , Attending Provider Active Start: December 30, 2024 End: December 30, 2024 Dr. Mina Blood , DO Emergency Provider Active Start: December 30, 2024 End: December 30, 2024 Team Status: Inactive Member Role/Relationship Status Dates Josy Tannhof , P[employer] F[employer]-C Primary Care Provider Active Start: January 02, [...] Active Member Role/Relationship Status Dates Josy Elias [employer] Primary Care Provider Active Start: January 03, [...] Sta rt: January 10, 2025 Dr. Cielo Toavr MD Referring Provider Active Start: January 10, 2025 Dr. Cielo Tovar MD Other Provider Active St art: January 10, 2025 Team Status: Active Member Role/Relationship Status Dates YG Pena Primary Care Provider Active Start: January 10, 2025 Dr. Breann Mendez DO Emergency Provider Active S tart: January 10, 2025 Dr. Yaritza Leo , Admit Provider Active Start : January 10, [...] Active Member Role/Relationship Status Dates Josy Elias [employer]-C Primary Care Provider Active Start: January 11, [...] Active Member Role/Relationship Status Dates Josy Elias [employer]-C Primary Care Provider Active Start: January 12, [...] Active Member Role/Relationship Status Dates Josy Elias [employer]-C Primary Care Provider Active Start: January 13, 2025 Dr. Breann Mendez DO Emergency Provider Active S tart: January 13, 2025 Dr. Yaritza Leo , Admit Provider Active Start : January 13, [...] Active Member Role/Relationship Status Dates Josy Elias [employer]-C Primary Care Provider Active Start: January 16, 2025 Dr. Breann Mendez DO Emergency Provider Active S tart: January 16, 2025 Dr. Yaritza Leo , Admit Provider Active Start : January 16, [...] -C Primary Care Provider Active Start: January 20, [...] 21, 2025 Dr. Yaritza Leo , DO Admit Provider Active Start : January [...] Star t: January 29, 2025 Dr. Boone Jopperi , DO Other Provider Active Star t: [...] January 30, 2025 Dr. Boone Izquierdo , Admit Provider Active Star t: January 30, [...] 2025 End: February 08, 2025 Team Status: Inactive Member Role/Relationship Status [...] 13, 2025 Dr. Luis Carlos Anderson DO Attending Provider Active Start: February 13, 2025 End: February 13, 2025 Dr. Luis Carlos Anderson DO Emergency Provider Active Start: February 13, 2025 End: February 13, 2025 Team Status: Inactive Member Role/Relationship Status Dates Dr. Jerald Sherwood MD Primary Care Provider Active Start: February 16, 2025 End: February 16, 2025 Dr. Jerald Sherwood MD Attending Provider Active Start: February 16, 2025 End: February 16, 2025 Dr. Jerald Sherwood MD Referring Provider Active Start: February 16, 2025 End: February 16, 2025 Team Status: Inactive Member Role/Relationship Status Dates Dr. Alber Dunn MD Emergency Provider Active S tart: February 16, 2025 End: February 17, 2025 Dr. Jae Ash DO Admit Provider Active Start: February 16, 2025 End: February 17, 2025 Dr. Jae Ash DO Other Provider Active Start: February 16, 2025 End: February 17, 2025 Dr. Niranjan Li DO Other Provider Active St art: February 16, 2025 End: February 17, 2025 Dr. Anurag Irene MD Attending Provider Active Start: February 16, 2025 End: February 17, 2025 YG Pena Primary Care Provider Active Start: February 16, 2025 End: February 17, 2025 Team Status: Active Member Role/Relationship Status Dates Dr. Jerald Sherwood MD Primary Care Provider Active Start: February 17, 2025 Dr. Alber Dunn MD Emergency Provider Active S tart: February 17, 2025 Dr. Jae Mosteller , DO Admit Provider Active Start: February 17, 2025 Dr. Jae Ash , DO Other Provider Active Start: February 17, 2025 Dr. Anurag Irene MD Attending Provider Active Start: February 17, 2025 Dr. Anurag Irene MD Other Provider Active Sta rt: February 17, 2025 Dr. Niranjan Li , Other Provider Active St art: February 17, 2025 Team Status: Active Member Role/Relationship Status Dates Dr. Alber Dunn MD Emergency Provider Active S tart: February 17, 2025 Dr. Jae Ash , DO Admit Provider Active Start: February 17, 2025 Dr. Jae Ash , DO Other Provider Active Start: February 17, 2025 Dr. Niranjan Li DO Attending Provider Active Start: February 17, 2025 Dr. Niranjan Li , DO Other Provider Active St art: February 17, 2025 Dr. Anurag Irene MD Other Provider Active Sta rt: February 17, 2025 YG Pena Primary Care Provider Active Start: February 17, 2025 Team Status: Inactive Member Role/Relationship Status Dates BRITTANY PenaC Primary Care Provider Active Start: February 24, 2025 End: February 25, 2025 Julita Glover Attending Provider Active Sta rt: February 24, 2025 End: February 25, 2025 YG Pena Referring Provider Active Start: February 24, 2025 End: February 25, 2025 YG Pena Other Provider Active Star t: February 24, 2025 End: February 25, 2025 Team Status: Active Member Role/Relationship Status Dates BRITTANY PenaC Primary Care Provider Active Start: February 25, 2025 Dr. Herberth Carlson MD Emergency Provider Active Start: February 25, 2025 Dr. Kathie Powers MD Attending Provider Active Start: February 25, 2025 Team Status: Inactive Member Role/Relationship Status Dates BRITTANY PenaC Primary Care Provider Active Start: February 25, 2025 End: February 27, 2025 Dr. Herberth Carlson MD Emergency Provider Active Start: February 25, 2025 End: February 27, 2025 Dr. Kathie Powers MD Admit Provider Active Star t: February 25, 2025 End: February 27, 2025 Dr. Kathie Powers MD Other Provider Active Star t: February 25, 2025 End: February 27, 2025 Dr. Rick Carlin DO Attending Provider Active Start: February 25, 2025 End: February 27, 2025 Team Status: Active Member Role/Relationship Status Dates Josy Elias P[employer]-C Primary Care Provider Active Start: February 25, 2025 Dr. Herberth Carlson MD Emergency Provider Active Start: February 25, 2025 Dr. Kathie Powers MD Admit Provider Active Star t: February 25, 2025 Dr. Kathie Powers MD Other Provider Active Star t: February 25, 2025 Dr. Niranjan Li DO Attending Provider Active Start: February 25, 2025 Team Status: Active Member Role/Relationship Status Dates Josy Elias P[employer]-C Primary Care Provider Active Start: February 26, 2025 Dr. Herberth Carlson MD Emergency Provider Active Start: February 26, 2025 Dr. Kathie Powers MD Admit Provider Active Star t: February 26, 2025 Dr. Kathie Powers MD Other Provider Active Star t: February 26, 2025 Dr. Rick Carlin DO Attending Provider Active Start: February 26, 2025 Dr. Rick Carlin DO Other Provider Active S tart: February 26, 2025 Team Status: Active Member Role/Relationship Status Dates Josy Elias [employer]-C Primary Care Provider Active Start: February 27, 2025 Dr. Herberth Carlson MD Emergency Provider Active Start: February 27, 2025 Dr. Kathie Powers MD Admit Provider Active Star t: February 27, 2025 Dr. Kathie Powers MD Other Provider Active Star t: February 27, 2025 Dr. Rick Carlin DO Attending Provider Active Start: February 27, 2025 Dr. Rick Carlin DO Other Provider Active S tart: February 27, 2025 Team Status: Active Member Role/Relationship Status Dates Josy Elias P[employer]-C Primary Care Provider Active Start: March 04, 2025 MINDY CONTRERAS Attending Provider Active Start: [facility] 2024 MINDY CONTRERAS Referring Provider Active Start: [facility] 2024 Team Status: Inactive Member Role/Relationship Status Dates YG Pena Primary Care Provider Active Start: March 10, 2025 End: March 10, 2025 YG Pena Referring Provider Active Start: March 10, 2025 End: March 10, 2025 Dr. Roby Balderas MD Attending Provider Active Start: March 10, 2025 End: March 10, 2025 Team Status: Inactive Member Role/Relationship Status Dates YG Pena Primary Care Provider Active Start: March 11, 2025 End: March 11, 2025 Dr. Alber Dunn MD Emergency Provider Active S tart: March 11, 2025 End: March 11, 2025 (unrecognized sect ion and content) No Status Records FoundNo Status Records FoundNo Status Records FoundNo Status Records Found INFORMATION SOURCE (unrecogn ized section and content) DATE CREATED AUTHOR 10/10/2024 [facility] DATE CREATED AUTHOR AUTHOR'S ORGANIZ ATION 12/13/2024 [facility] DATE CREATED AUTHOR AUTHOR'S ORGANIZ ATION 02/18/2025 [facility] DATE CREATED AUTHOR AUTHOR'S ORGANIZ ATION 04/02/[address] [facility] Source Comments (unrecognize d section and content) In the event this informatio n is protected by the Federal Confidentiality of Alcohol and Drug Abuse Patient Records regulations: The Federal rules restrict any use of the information to criminally investigate or prosecute any alcohol or drug abuse patient.[facility] the event this information is protected by the Federal Confidentiality of Alcohol and Drug Abuse Patient Records regulations: The Federal rules restrict any use of the information to criminally investigate or prosecute any alcohol or drug abuse patient.[facility] the event this information is protected by the Federal Confidentiality of Alcohol and Drug Abuse Patient Records regulations: The Federal rules restrict any use of the information to criminally investigate or prosecute any alcohol or drug abuse patient.[facility] the event this information is protected by the Federal Confidentiality of Alcohol and Drug Abuse Patient Records regulations: The Federal rules restrict any use of the information to criminally investigate or prosecute any alcohol or drug abuse patient.[facility] the event this information is protected by the Federal Confidentiality of Alcohol and Drug Abuse Patient Records regulations: The Federal rules restrict any use of the information to criminally investigate or prosecute any alcohol or drug abuse patient.[facility] the event this information is protected by the Federal Confidentiality of Alcohol and Drug Abuse Patient Records regulations: The Federal rules restrict any use of the information to criminally investigate or prosecute any alcohol or drug abuse patient.[facility] the event this information is protected by the Federal Confidentiality of Alcohol and Drug Abuse Patient Records regulations: The Federal rules restrict any use of the information to criminally investigate or prosecute any alcohol or drug abuse patient.[facility] the event this information is protected by the Federal Confidentiality of Alcohol and Drug Abuse Patient Records regulations: The Federal rules restrict any use of the information to criminally investigate or prosecute any alcohol or drug abuse patient.[facility] the event this information is protected by the Federal Confidentiality of Alcohol and Drug Abuse Patient Records regulations: The Federal rules restrict any use of the information to criminally investigate or prosecute any alcohol or drug abuse patient.[facility] the event this information is protected by the Federal Confidentiality of Alcohol and Drug Abuse Patient Records regulations: The Federal rules restrict any use of the information to criminally investigate or prosecute any alcohol or drug abuse patient.[facility] the event this information is protected by the Federal Confidentiality of Alcohol and Drug Abuse Patient Records regulations: The Federal rules restrict any use of the information to criminally investigate or prosecute any alcohol or drug abuse patient.[facility] FOR RECORDS PERTAINING TO PATIENTS WHO [...] BE BASED ON THE PRIMARY CLINICAL RECORDS. [facility] [employer] [facility]. provides no warranty or guarantee of the accuracy or completeness of information in this document.
--- NOTE | 2025-04-03 21:35 | EKG12_ITS ---
Test Reason : Blood Pressure : */* mmHG Vent. Rate : 93 BPM Atrial Rate : 93 BPM P-R Int : 176 ms QRS Dur : 88 ms QT Int : 386 ms P-R-T Axes : 33 -24 44 degrees QTcB Int : 479 ms Normal sinus rhythm with sinus arrhythmia Low voltage QRS Cannot rule out Inferior infarct , age undetermined Poor R-wave progression ; consider septal infarct, lead placement, or normal variant Abnormal ECG Confirmed by Cesar Bradley ([id number]), television news video editor FAHAD INGRAM ([id number]) on 04/05/2025 10:45:38 AM Referred By: Confirmed By: Cesar Bradley
--- NOTE | 2025-04-03 22:27 | EX.ED.DYSGE1 ---
HPI History of Present Illness Chief Complaint: Wound Detail of Chief Complaint: Paracentesis tubing fell out Informant: patient and other (P.o. a came to the hospital. She is requesting to take him home.) Limited: other (Concern patient has hepatic encephalopathy.) Onset/Context/Timing Onset: - (Tubing fell out today.) Context: Sudden Onset Timing: Continuous Quality: Decreased level of consciousness. Location: Suspect hepatic encephalopathy Current Severity: Unable to determine Maximum Severity: Unable to determine Worsened by: Nothing specific since reportedly he is compliant Relieved by: Nothing Associated Symptoms Associated Symptoms: History is limited. Narrative Narrative: Patient is in hospice. He is DNR Comfort Care arrest. Initially I was told he was DNR comfort care only and in hospice. After speaking with POA he is DNR Comfort Care arrest. She states she would like to take him home since we do not have interventional radiologist placed the paracentesis tubing. She was informed him concerned that he may have a metabolic or infectious cause of his altered level of conscious. She states she wants to go home and I am his POA and I will take him home. Prior similar symptoms: Yes Recent Illness/Hospitalization: Yes [facility] Medical History Diffuse abdominal pain Acute hepatic encephalopathy Hyperammonemia Elevated liver enzymes Cirrhosis of liver with ascites Decompensated cirrhosis History of diabetes mellitus Chronic anemia VRE (vancomycin resistant enterococcus) culture positive Spinal stenosis, lumbar region with neurogenic claudication Hepatic encephalopathy Umbilical hernia Chronic hyponatremia Weakness Diarrhea Sepsis Acidosis, lactic Acute hypotension Acute UTI Chronic hypotension Obesity (BMI 30-39.9) Chronic back pain ISABEL (acute kidney injury) Hypotension Hyperbilirubinemia Liver cirrhosis secondary to HARRIS (nonalcoholic steatohepatitis) HLD (hyperlipidemia) HTN (hypertension) Thrombocytopenia Chronic anemia Former tobacco use Diabetes mellitus, type 2 ABBY on CPAP Back pain Home Medications ?Medication ?Instructions ?Recorded ?Last Taken ?Type acetaminophen 500 mg tablet 1,000 mg PO Q8 PRN fever or pain 10/28/24 Unknown History cyclobenzaprine 10 mg tablet 10 mg PO QHS muscle relaxer 01/02/25 02/15/25 History insulin lispro 100 unit/mL 10 unit (0.1 mL) subcut TIDAC #0 mL 01/05/25 02/15/25 Rx subcutaneous pen (Humalog KwikPen (U-100) Insulin) pen needle, diabetic 31 gauge x #1,200 ea 01/31/25 Unknown Rx 5/16 (Pen Needle) carvedilol 3.125 mg tablet 3.125 mg PO BID 1 month #60 tabs 02/17/25 03/30/25 Rx furosemide 40 mg tablet 40 mg PO DAILY 30 days #30 tabs 02/17/25 Unknown Rx spironolactone 100 mg tablet 150 mg (1.5 x 100 mg) PO DAILY 1 02/17/25 02/15/25 Rx month #30 tabs ciprofloxacin HCl 500 mg tablet 500 mg PO DAILY #14 tabs 02/27/25 Unknown Rx lactulose 10 gram/15 mL oral 20 g (30 mL) PO TID #1 mL 02/27/25 Unknown Rx solution insulin glargine-yfgn 100 unit/mL 30 unit subcut QHS 03/10/25 Unknown History (3 mL) subcutaneous pen Allergy/AdvReac Type Severity Reaction Status Date / Time No Known Allergies Allergy Verified 04/03/25 20:17 Family History Mother Heart disease Hypertension CAD (coronary artery disease) Myocardial infarction Father Hypertension Heart disease Heart failure Surgical History History of tonsillectomy and adenoidectomy Social History household members: other details: ex /her Smoking Status: Former smoker how long ago did patient quit smoking: Quit ~ 3-4 months prior (fall 2023), smoked 1.5 ppd since teen until quit. alcohol intake: never substance use type: does not use additional social history: EX and a friend help with his care. ROS ROS ED Review of Systems ROS Unobtainable: due to mental status EXAM Physical Exam Const Vital Signs: 04/03/25 20:14 Temperature 97.8 F Temperature Source Temporal Pulse Rate 109 H Respiratory Rate 20 H Blood Pressure 117/83 H Blood Pressure Mean 94 Pulse Ox 95 Oxygen Delivery Method Room Air Positive well nourished and unkempt Constitutional Narrative: Vital signs are marked for tachycardia. He is not febrile. He is awake but not alert. General Appearance ED: unkempt; Negative for pallor HEENT Reports dry mucous membranes HEENT Narrative: Head is atraumatic normocephalic. There is some slight temporal wasting. Mouth ED: Yes dry mucous membranes Mouth: dry mucous membranes Eyes PERRL and EOMs intact bilaterally General Eye ED: Yes pale conjunctiva; Negative for scleral icterus Neck no lymphadenopathy, supple and no JVD Resp normal respiratory effort and clear to auscultation bilaterally Cardio regular rhythm, S1 normal heart sound, S2 normal heart sound and no murmurs Rate: tachycardic GI GI Narrative: Ascitic fluid is draining from his drain site. It appears clear. There is no odor. There is no breakdown of skin or discoloration of his skin or evidence of infection. He does have a fluid wave noted. Palpation: soft Back/Spine no CVA tenderness Extremity Negative for normal to inspection General Extremety ED: Yes edema General Extremity: edema Neuro No oriented x3, CN's II-XII intact bilaterally and no sensory deficits noted Sensorium / Orientation: Negative for alert Psych Appearance: unkempt Mood & Affect: depressed Skin no rashes or lesions noted and No skin turgor normal General Skin Exam: Negative for elasticity normal or pallor MDM MDM MDM Narrative Medical decision making narrative: Patient may have a metabolic or infectious cause. LOCO understands. LOCO is alert oriented has capacity to make decision for him. She wishes to take him home and contact hospice since we do not have IR. She was informed he may have hepatic encephalopathy, infectious cause or other reason for his altered mental status. She understands the risk of taking him home without completing workup. She does not want any blood drawn. Discharge Plan Triage Chief Complaint: Wound ED Provider: Jose Fox Dx/Rx/DC Orders Clinical Impression: Acute alteration in mental status, Generalized weakness, Abdominal ascites, Hepatic cirrhosis Instructions: ED ALOC Prescriptions: No Action cyclobenzaprine 10 mg tablet 10 mg PO QHS insulin lispro [Humalog KwikPen Insulin] 100 unit/mL Insulin Pen 10 unit subcut TIDAC Qty: 0 0RF (DME) pen needle, diabetic [Pen Needle] 31 gauge x 5/16 needle See Rx Instructions .Route Qty: 1200 0RF Rx Instructions: As directed lactulose 10 gram/15 mL Solution 20 g PO TID Qty: 1 0RF ciprofloxacin HCl 500 mg tablet 500 mg PO DAILY Qty: 14 0RF Rx Instructions: start on 02/28/25 acetaminophen 500 mg Tablet 1,000 mg PO Q8 PRN (Reason: fever or pain) furosemide 40 mg Tablet 40 mg PO DAILY 30 Days Qty: 30 2RF spironolactone 100 mg tablet 150 mg PO DAILY 30 Days Qty: 30 2RF Rx Instructions: Hold for serum potassium more than 5.0. carvedilol 3.125 mg tablet 3.125 mg PO BID 30 Days Qty: 60 2RF Rx Instructions: must administer with a meal/food insulin glargine-yfgn 100 unit/mL (3 mL) Insulin Pen 30 unit subcut QHS Primary Care Provider: Josy Elias Referrals: Josy Elias, [employer] [Primary Care Provider] - As soon as possible Activity Restrictions/Additional Instructions: I have informed by Dr. Fox that my brother Cal needs a workup. I understand taking him home before the workup may result in harm which is not limited to what is listed, inability to care for himself and perform activities of living which would include bathing himself, clothing himself, feeding himself, severe infection resulting in advance care and possible admission to ICU with life support, physical or mental disability. This may also result in semivegetative vegetative state, , seizure disorder or other complications which would require surgical intervention. Print Language: Czech Disposition Disposition: Against Medical Advice
== END 2025-04-03 22:48 | disposition left against medical advice (07) ==
PROVIDERS: Emergency Provider Emergency Medicine; PCP Nurse Practitioner Family; Visit Provider Emergency Medicine
DX: R41.82 Altered mental status, unspecified (principal); K74.60 Unspecified cirrhosis of liver; E11.9 Type 2 diabetes mellitus without complications; Z79.4 Long term (current) use of insulin; T85.628A Displacement of other specified internal prosthetic devices, implants and grafts, initial encounter; R18.8 Other ascites; K75.81 Nonalcoholic steatohepatitis (NASH); Z51.5 Encounter for palliative care; E78.5 Hyperlipidemia, unspecified; I10 Essential (primary) hypertension; R53.1 Weakness; Z66 Do not resuscitate; Z79.84 Long term (current) use of oral hypoglycemic drugs; Z79.899 Other long term (current) drug therapy; Z87.891 Personal history of nicotine dependence
CPT/HCPCS: 93005; 99282

== ENCOUNTER 2025-04-07 18:04 | Inpatient (IN) | payer MEDICAID, SELFPAY ==
[2025-04-07] VITALS (10 sets, daily range): BP systolic 112–122; BP diastolic 63–74; PULSE 72–88; RESP 14–20; TEMP 36.6–36.8; O2SAT 99–100; BMI 33.3; BMI 31.5
--- NOTE | 2025-04-07 19:54 | EKG12_ITS ---
Test Reason : GEN ILL Blood Pressure : */* mmHG Vent. Rate : 74 BPM Atrial Rate : 74 BPM P-R Int : 188 ms QRS Dur : 92 ms QT Int : 414 ms P-R-T Axes : 17 -22 46 degrees QTcB Int : 459 ms Normal sinus rhythm Normal ECG When compared with ECG of 03-Apr-2025 21:45, No significant change was found Confirmed by Cesar Bradley ([id number]), news editor FAHAD INGRAM ([id number]) on 04/12/2025 6:09:25 AM Referred By: Confirmed By: Cesar Bradley
--- NOTE | 2025-04-07 19:59 | EX.ED.DYSGE1 ---
HPI History of Present Illness Chief Complaint: General Illness Informant: patient and family Limited: other (confusion ) Narrative Narrative: Patient is a 59-year-old male with history of hepatic cirrhosis, staghorn calculus, recent removal of pleuroex catheter , URI symptoms presenting with worsening weakness and confusion. Patient is through hospice however is either a full code or DNR CCA. I did speak with his emergency contact who is helping take care of him along with the patient's ex-. They state he has been significantly more confused and weak today. They think his ammonia level is high. They note that his blood sugar was 80 before coming in. He did have an episode of vomiting today and seems shaky. No report of any fevers. Patient himself does not know why he is here and has no complaints. [facility] Medical History Diffuse abdominal pain Acute hepatic encephalopathy Hyperammonemia Elevated liver enzymes Cirrhosis of liver with ascites Decompensated cirrhosis History of diabetes mellitus Chronic anemia VRE (vancomycin resistant enterococcus) culture positive Spinal stenosis, lumbar region with neurogenic claudication Umbilical hernia Chronic hyponatremia Weakness Diarrhea Sepsis Acidosis, lactic Acute hypotension Acute UTI Chronic hypotension Obesity (BMI 30-39.9) Chronic back pain ISABEL (acute kidney injury) Hypotension Hyperbilirubinemia Liver cirrhosis secondary to HARRIS (nonalcoholic steatohepatitis) HLD (hyperlipidemia) HTN (hypertension) Thrombocytopenia Chronic anemia Former tobacco use Diabetes mellitus, type 2 ABBY on CPAP Back pain Home Medications ?Medication ?Instructions ?Recorded ?Last Taken ?Type acetaminophen 500 mg tablet 1,000 mg PO Q8 PRN fever or pain 10/28/24 Unknown History cyclobenzaprine 10 mg tablet 10 mg PO QHS muscle relaxer 01/02/25 02/15/25 History pen needle, diabetic 31 gauge x #1,200 ea 01/31/25 Unknown Rx 5/16 (Pen Needle) carvedilol 3.125 mg tablet 3.125 mg PO BID 1 month #60 tabs 02/17/25 03/30/25 Rx lactulose 10 gram/15 mL oral 20 g (30 mL) PO TID #1 mL 02/27/25 Unknown Rx solution insulin glargine-yfgn 100 unit/mL 30 unit subcut QHS 03/10/25 Unknown History (3 mL) subcutaneous pen furosemide 40 mg tablet 40 mg PO QODAY 04/07/25 Unknown History insulin lispro 100 unit/mL 20 unit subcut TIDAC 04/07/25 Unknown History subcutaneous pen (Humalog KwikPen (U-100) Insulin) metformin 500 mg tablet 500 mg PO QHS 04/07/25 Unknown History oxycodone 5 mg tablet 5 mg PO TID PRN PRN dyspnea 04/07/25 Unknown History sodium bicarbonate 650 mg tablet 650 mg PO BID 04/07/25 Unknown History spironolactone 100 mg tablet 100 mg PO DAILY 04/07/25 Unknown History Allergy/AdvReac Type Severity Reaction Status Date / Time No Known Allergies Allergy Verified 04/07/25 18:06 Family History Mother Heart disease Hypertension CAD (coronary artery disease) Myocardial infarction Father Hypertension Heart disease Heart failure Surgical History History of tonsillectomy and adenoidectomy Social History household members: other details: Lives with his ex /her . Smoking Status: Former smoker how long ago did patient quit smoking: Quit Fall 2023, smoked 1.5 ppd since teen until quit. alcohol intake: never substance use type: does not use additional social history: EX and a friend help with his care. ROS ROS ED Review of Systems ROS Unobtainable: due to mental status EXAM Physical Exam Const Vital Signs: 04/07/25 18:05 04/07/25 19:00 04/07/25 19:15 Temperature 98.3 F Temperature Source Oral Pulse Rate 88 74 Respiratory Rate 20 H 15 Respiratory Effort Normal Respiratory Pattern Normal Blood Pressure 112/63 Blood Pressure Mean 79 Pulse Ox 99 100 Oxygen Delivery Method Room Air 04/07/25 19:20 04/07/25 19:30 04/07/25 19:45 Temperature Temperature Source Pulse Rate 73 74 78 Respiratory Rate 15 14 14 Respiratory Effort Respiratory Pattern Blood Pressure 115/69 Blood Pressure Mean 82 Pulse Ox 100 100 100 Oxygen Delivery Method 04/07/25 20:00 04/07/25 20:15 04/07/25 22:05 Temperature 98.0 F Temperature Source Oral Pulse Rate 74 73 77 Respiratory Rate 16 15 18 Respiratory Effort Respiratory Pattern Blood Pressure 122/71 H 112/70 Blood Pressure Mean 87 84 Pulse Ox 100 100 100 Oxygen Delivery Method Room Air 04/07/25 22:05 Temperature 98.0 F Temperature Source Pulse Rate 74 Respiratory Rate 15 Respiratory Effort Respiratory Pattern Blood Pressure 112/70 Blood Pressure Mean 84 Pulse Ox 100 Oxygen Delivery Method Positive well developed Constitutional Narrative: Chronically ill-appearing General Appearance ED: well developed and NAD HEENT Reports moist mucous membranes Eyes PERRL General Eye ED: Yes scleral icterus Neck supple Neck Narrative: No meningeal signs Chest Wall inspection of chest normal Resp normal respiratory effort and clear to auscultation bilaterally Cardio regular rate and regular rhythm GI non-tender GI Narrative: Mildly distended abdomen. No fluid wave present. Reducible umbilical hernia present. No tenderness to palpation. Palpation: soft; Negative for tender or guarding Extremity normal to inspection General Extremety ED: Negative for edema General Extremity: Negative for edema Neuro Neuro Narrative: Somnolent, arousable to verbal stimuli. Generally weak. Psych mental status grossly normal Skin Skin Narrative: Sallow complex. Healing incision in the right lower quadrant consistent where prior PleurX was. There is very slight amount of ascitic drainage present. MDM MDM MDM Narrative Medical decision making narrative: Patient valuated for worsening altered mental status. Has a history of cirrhosis and hepatic encephalopathy. Patient appears encephalopathic on exam. Differential includes infection, hepatic encephalopathy, electrolyte derangement, hypoglycemia, hyponatremia and lower suspicion for intracranial hemorrhage as no report of any trauma or falls. No focal deficits appreciated. CBC shows chronic anemia with no leukocytosis or left shift. CMP shows a bicarb of 16.9 but normal anion gap and otherwise normal electrolytes. He does have a mildly elevated bilirubin and chronic mild transaminitis. Ammonia significantly elevated at 143 consistent with a PEG and cephalopathy. Glucose is normal at 81 on fingerstick and 106 on his BMP. Low suspicion for hypoglycemia as a cause of his mental status. Urinalysis obtained to straight cath does show negative nitrites, 1+ bacteria, 0-5 white blood cells and 50-100 red blood cells. This is likely consistent with traumatic catheterization. I will send for culture but I do not think he requires antibiotics at this time. Patient started on lactulose. Case discussed with hospitalist for admission for hepatic and cephalopathy. I did speak with his primary caregivers he would like him treated for hepatic encephalopathy so he ideally cannot return home. Lab Data Labs: Laboratory Results - last 24 hr 04/07/25 04/07/25 04/07/25 18:19 18:32 20:26 WBC 7.9 RBC 3.06 L Hgb 9.1 L Hct 27.7 L MCV 90.5 MCH 29.7 MCHC 32.9 RDW Std Deviation 50.8 H RDW Coeff of Francis 15.5 H Plt Count 164 MPV 10.8 Immature Gran % (Auto) 0.500 Neut % (Auto) 67.0 Lymph % (Auto) 16.8 L [place] % (Auto) 9.9 Eos % (Auto) 5.2 H Baso % (Auto) 0.6 Absolute Neuts (auto) 5.3 Absolute Lymphs (auto) 1.32 Nucleated RBC % 0 Sodium 136 Potassium 4.0 Chloride 110 H Carbon Dioxide 16.9 L Anion Gap 9 BUN 11 Creatinine 1.04 Est GFR (MDRD) Non-Af 83 BUN/Creatinine Ratio 10.5 Glucose 106 H Calcium 8.6 Phosphorus 3.0 Magnesium 1.7 Total Bilirubin 1.76 H Direct Bilirubin 1.11 H AST 48 H ALT 23 Alkaline Phosphatase 176 H Ammonia 143.0 H Total Protein 6.1 Albumin 2.4 L Globulin 3.8 Lipase 47 Urine Color Urine Clarity Urine pH Ur Specific [place] Urine Protein Urine Glucose (UA) Urine Ketones Urine Occult Blood Urine Nitrite Urine Bilirubin Urine Urobilinogen Ur Leukocyte Esterase Urine RBC Urine WBC Ur Squamous Epith Cells Urine Bacteria Urine Mucus POC Glucose 81 04/07/25 21:42 WBC RBC Hgb Hct MCV MCH MCHC RDW Std Deviation RDW Coeff of Francis Plt Count MPV Immature Gran % (Auto) Neut % (Auto) Lymph % (Auto) [place] % (Auto) Eos % (Auto) Baso % (Auto) Absolute Neuts (auto) Absolute Lymphs (auto) Nucleated RBC % Sodium Potassium Chloride Carbon Dioxide Anion Gap BUN Creatinine Est GFR (MDRD) Non-Af BUN/Creatinine Ratio Glucose Calcium Phosphorus Magnesium Total Bilirubin Direct Bilirubin AST ALT Alkaline Phosphatase Ammonia Total Protein Albumin Globulin Lipase Urine Color Yellow Urine Clarity Sl. Cloudy Urine pH 6.5 Ur Specific [place] 1.015 Urine Protein 100 H Urine Glucose (UA) Normal Urine Ketones Negative Urine Occult Blood 250 H Urine Nitrite Negative Urine Bilirubin Negative Urine Urobilinogen Normal Ur Leukocyte Esterase 500 H Urine RBC 50-100 SEEN Urine WBC 0-5 SEEN Ur Squamous Epith Cells 0 SEEN Urine Bacteria 1+ Urine Mucus 0 SEEN POC Glucose Rhythm Strip Rhythm Strip: Sinus Rhythm Rate: 74 Ectopy: None EKG Initial EKG: Attestation: I personally reviewed and interpreted this EKG as follows: Interpretation: Sinus Rhythm Comments: Normal sinus rhythm rate of 74 bpm Normal axis, normal intervals Normal ST segments Management Discussion w/another healthcare provider: Hospitalist Discharge Plan Triage Chief Complaint: General Illness ED Provider: Rachel Joiner Dx/Rx/DC Orders Clinical Impression: Hepatic encephalopathy, Acute alteration in mental status, Hepatic cirrhosis Primary Care Provider: Josy Elias Disposition Disposition: Acute Care Hospital [facility] Discharge Date/Time: 04/07/25 23:38
[2025-04-07 20:13] LABS: Hematocrit 27.7 % (40-54); Hemoglobin 9.1 g/dL (13.0-16.5); Immature Granulocytes Count 0.040 X10^3/uL (0.0-0.0); Mean Corp Hgb Conc 32.9 g/dL (32-36); Mean Corpuscular Volume 90.5 fL (80-94); Mean Platelet Vol. 10.8 fl (6.2-12.0); NRBC Flagged by Analyzer 0 % (0-5); Platelet Count 164 K/mm3 (150-450); RBC Distribution Width CV 15.5 % (11.6-14.6); RBC Distribution Width SD 50.8 fl (35.1-43.9); Red Blood Count 3.06 M/mm3 (4.6-6.2); White Blood Count 7.9 K/mm3 (4.4-11.0)
[2025-04-07 20:31] LABS: AST(SGOT) 48 U/L (<=37); Alanine Aminotransfer ALT/SGPT 23 U/L (<=46); Albumin, Serum 2.4 g/dL (3.5-5.0); Alkaline Phosphatase 176 U/L (40-129); Anion Gap 9 (5-15); BUN 11 mg/dL (4-19); BUN/Creat Ratio 10.5 RATIO (10-20); Bilirubin, Direct 1.11 mg/dL (0.00-0.30); Calcium,Total 8.6 mg/dL (7.6-11.0); Carbon Dioxide 16.9 mmol/L (21.0-32.0); Chloride 110 mmol/L (98-108); Globulin 3.8 g/dL (2.2-4.2); Glucose 106 mg/dL (70-99); Lipase 47 U/L (13-75); Potassium 4.0 mmol/L (3.3-5.1)
--- NOTE | 2025-04-07 20:32 | PCA ---
Hospice called for update on pt, can call back at [phone]
[2025-04-07 20:58] LABS: Ammonia 143.0 umol/L (16-60)
--- NOTE | 2025-04-07 21:20 | HP.PCM.HOS_ITS ---
HPI - General General Date of Admission: 04/07/25 Date of Service: 04/07/25 Chief Complaint: Confusion, weakness. HPI Narrative The patient is a 59 y/o M w/ PMHx: CKD stage II per GFR trending, Chronic anemia/iron deficiency anemia, ABBY, HTN, HLD, Diabetes mellitus type II, Nonalcoholic cirrhotic liver disease, Former tobacco use, Persistent left-sided staghorn calculi with stents in place following with Dr. Rascon who presents to [facility] ED on 04/28 with increased fatigue, malaise and reported URI type symptoms as well with increasing confusion with blood sugar noted to be 80 prior to ED arrival with episode of nausea and emesis with no fevers or chills prompting patient healthcare power of attorney lawyer his ex- and a friend to care for him to present him to the ED for further evaluation. Of note patient with recent 03/30/2025 ultrasound-guided placement of tunneled Pleur-X catheter for persistent cirrhotic ascites per Dr. Balderas with unfortunately then follow- up ED visit noted 04/03/2025 with paracentesis tubing unfortunately falling out with decision at that time her healthcare power of attorney lawyer to return the patient to home since that time there is no interventional radiologist available for placement. Ex- states that he has not been taking his lactulose. Workup in the ED included T98.3, heart rate 88, BP 112/63, respiratory 20, 99% on room air with most recent repeat vitals heart rate 73, BP 122/71, respiratory rate 15, 100% room air, CBC with WC 7.9, hemoglobin 9.1, MCV 90.5, platelet 164 without marked shift, CMP with chloride 110, carbon oxide 16.9, BUN/creatinine 11/1.04, GFR 83, glucose 106, T. bili 1.76, D bili 1.11, AST/ALT 48/23, alk phos 176, lipase 47, ammonia level 143, urinalysis pending upon requested evaluation of patient. Discussed with ED physician and patient will be administered rectal lactulose. [facility] Medical History Diffuse abdominal pain Acute hepatic encephalopathy Hyperammonemia Elevated liver enzymes Cirrhosis of liver with ascites Decompensated cirrhosis History of diabetes mellitus Chronic anemia VRE (vancomycin resistant enterococcus) culture positive Spinal stenosis, lumbar region with neurogenic claudication Umbilical hernia Chronic hyponatremia Weakness Diarrhea Sepsis Acidosis, lactic Acute hypotension Acute UTI Chronic hypotension Obesity (BMI 30-39.9) Chronic back pain ISABEL (acute kidney injury) Hypotension Hyperbilirubinemia Liver cirrhosis secondary to HARRIS (nonalcoholic steatohepatitis) HLD (hyperlipidemia) HTN (hypertension) Thrombocytopenia Chronic anemia Former tobacco use Diabetes mellitus, type 2 ABBY on CPAP Back pain Home Medications ?Medication ?Instructions ?Recorded ?Last Taken ?Type acetaminophen 500 mg tablet 1,000 mg PO Q8 PRN fever o r pain 10/28/24 Unknown History cyclobenzaprine 10 mg tablet 10 mg PO QHS muscle relax er 01/02/25 02/15/25 History insulin lispro 100 unit/mL 10 unit (0.1 mL) subcut TID AC #0 mL 01/05/25 02/15/25 Rx subcutaneous pen (Humalog KwikPen (U-100) Insulin) pen needle, diabetic 31 gauge x #1,200 ea 01/31/25 Unk nown Rx 16 (Pen Needle) carvedilol 3.125 mg tablet 3.125 mg PO BID 1 month #60 tabs 02/17/25 03/30/25 Rx furosemide 40 mg tablet 40 mg PO DAILY 30 days #30 t abs 02/17/25 Unknown Rx spironolactone 100 mg tablet 150 mg (1.5 x 100 mg) PO DAILY 1 02/17/25 02/15/25 Rx month #30 tabs ciprofloxacin HCl 500 mg tablet 500 mg PO DAILY #14 ta bs 02/27/25 Unknown Rx lactulose 10 gram/15 mL oral 20 g (30 mL) PO TID #1 mL 02/27/25 Unknown Rx solution insulin glargine-yfgn 100 unit/mL 30 unit subcut QHS 0 03/10/25 Unknown History (3 mL) subcutaneous pen Allergy/AdvReac Type Severity Reaction Status Date / Time No Known Allergies Allergy Verified 04/07/25 18:06 Family History Mother Heart disease Hypertension CAD (coronary artery disease) Myocardial infarction Father Hypertension Heart disease Heart failure Surgical History History of tonsillectomy and adenoidectomy Social History household members: other details: Lives with his ex /her . Smoking Status: Former smoker how long ago did patient quit smoking: Quit Fall 2023, smoked 1.5 ppd since teen until quit. alcohol intake: never substance use type: does not use additional social history: EX and a friend help with his care. ROS Review of Systems ROS Unobtainable: due to encephalopathy Vital Signs Vital Signs Vital Signs: 04/07/25 18:05 04/07/25 19:00 04/07/25 19:15 Temperature 98.3 F Temperature Source Oral Pulse Rate 88 74 Respiratory Rate 20 H 15 Respiratory Effort Normal Respiratory Pattern Normal Blood Pressure 112/63 Blood Pressure Mean 79 Pulse Ox 99 100 Oxygen Delivery Method Room Air 04/07/25 19:20 04/07/25 19:30 04/07/25 19:45 Temperature Temperature Source Pulse Rate 73 74 78 Respiratory Rate 15 14 14 Respiratory Effort Respiratory Pattern Blood Pressure 115/69 Blood Pressure Mean 82 Pulse Ox 100 100 100 Oxygen Delivery Method 04/07/25 20:00 04/07/25 20:15 Temperature Temperature Source Pulse Rate 74 73 Respiratory Rate 16 15 Respiratory Effort Respiratory Pattern Blood Pressure 122/71 H Blood Pressure Mean 87 Pulse Ox 100 100 Oxygen Delivery Method Physical Exam Narrative Physical Examination: General: Awakens to stimuli, intermittently alert but is lethargic, can answer some questions, laying in the ED bed, NAD. Skin: Compared to prior not markedly jaundiced, normal turgor, no cyanosis, notably reduced scleral icterus compared to prior, occasional abrasion noted. HEENT: AT/NC, EOMI, PERRLA, dry MM, no carotid bruits or JVD noted, see skin. Lungs: Diminished, greater bases, no evidence of any distress, no rales, ronchi or wheezing. Heart: Regular rate and rhythm; no gallop, rub audible. Abdomen: Soft, obese, global mild TTP, no severe distention or marked fluid wave, mild tympany, hyperactive BS, + HM, small umbilical hernia present. Extremities: No cyanosis, no clubbing, no marked peripheral edema noted. Neurological: Awakens to stimuli, intermittently alert but is lethargic, not oriented, cognitive function decreased from baseline intact; pupils equally reactive to light and accommodation, cranial nerves grossly normal, moving all 4 extremities, strength severely globally decreased secondary to acute presentation. Psychiatric: Affect appears flat, lethargic, no acute evidence of depressive or anxiety feelings. Results Lab / Micro Data 04/07/25 18:32 04/07/25 18:32 Labs: Laboratory Results - last 24 hr 04/07/25 18:19: POC Glucose 81 04/07/25 18:32: WBC 7.9, RBC 3.06 L, Hgb 9.1 L, Hct 27.7 L, MCV 90.5, MCH 29.7, MCHC 32.9, RDW Std Deviation 50.8 H, RDW Coeff of Francis 15.5 H, Plt Count 164, MPV 10.8, Immature Gran % (Auto) 0.500, Neut % (Auto) 67.0, Lymph % (Auto) 16.8 L, [place] % (Auto) 9.9, Eos % (Auto) 5.2 H, Baso % (Auto) 0.6, Absolute Neuts (auto) 5.3, Absolute Lymphs (auto) 1.32, Nucleated RBC % 0, Sodium 136, Potassium 4.0, Chloride 110 H, Carbon Dioxide 16.9 L, Anion Gap 9, BUN 11, Creatinine 1.04, Est GFR (MDRD) Non-Af 83, BUN/Creatinine Ratio 10.5, Glucose 106 H, Calcium 8.6, T otal Bilirubin 1.76 H, Direct Bilirubin 1.11 H, AST 48 H, ALT 23, Alkaline Phosphatase 176 H, Total Protein 6.1, Albumin 2.4 L, Globulin 3.8, Lipase 47 04/07/25 20:26: Ammonia 143.0 H Assessment & Plan Assessment/Plan (1) Hepatic encephalopathy: PLAN: Plan The patient is a 59 y/o M w/ PMHx: CKD stage II per GFR trending, Chronic anemia/iron deficiency anemia, ABBY, HTN, HLD, Diabetes mellitus type II, Nonalcoholic cirrhotic liver disease, Former tobacco use, Persistent left-sided staghorn calculi with stents in place following with Dr. Rascon who presents to [facility] ED on 04/28 with increased fatigue, malaise and reported URI type symptoms as well with increasing confusion with blood sugar noted to be 80 prior to ED arrival with episode of nausea and emesis with no fevers or chills prompting patient healthcare power of attorney lawyer his ex- and a friend to care for him to present him to the ED for further evaluation. #1. Acute hepatic encephalopathy with significant hyperammonemia with chronic nonalcoholic cirrhotic liver disease: Will admit to [facility], once oral intake safe with plan for allowance of Na/DM diet, continue home rifaximin, spironolactone, Lasix, Coreg regimen, initiate and continue on aggressive lactulose regimen with oral if able to tolerate otherwise transition to rectal administration. Patient did have previous PleurX catheter in place and unfortunately this came out, will need referral for follow-up with Dr. Balderas for replacement. PT/OT/case management consult for discharge planning. #2. Significant debility, adult failure to thrive, multifactorial, secondary to #1 and questionable recent acute viral syndrome: Will obtain full respiratory viral panel and COVID assessment as well, notable case load in the community of rhinovirus this certainly could be multifactorial, procalcitonin requested, PT/OT/case management consulted for discharge planning as noted. #3. Chronic normocytic anemia/iron deficiency anemia: Admission hemoglobin 9.1, MCV 90.5, baseline hemoglobin primarily 8-9, vacillates, continue to trend, continue iron supplementation once oral intake appropriate. #4. Chronic Kidney Disease Stage II per GFR trending: Admission BUN/Cr /1.04, GFR 83, baseline renal function primarily 0.8-1.1 but does vacillate, most recently 03/11/2025 creatinine 1.30 at that time, repeat CMP in AM. #5. Diabetes mellitus type II: Hold oral home regimen, continue home insulin regimen, once clinically appropriate allow ADA diet, accu checks w/ ISS. #6. Hypertension: Continue home regimen including spironolactone, Lasix, Coreg once clinically appropriate for oral intake, PRN hydralazine. #7. Hyperlipidemia: Will continue patient on statin therapy once oral intake appropriate. #8. Former tobacco use: Encourage continued tobacco cessation. #9. ABBY: CPAP nightly but with history of recent N/V, will hold and use supplemental oxygen until assure improved. #10. DVT prophylaxis: Lovenox. #11. CODE status: Patient MARE is his ex-. Discussed CODE status at length including difference between FULL code, DNR-CCA and DNR-CC status. Following discussions about the differences in these status, requested Full Code status. She noted that Hospice had made him a DNR-CCA but she wants him upon admission to be a Full Code. Frankly did discuss the likelihood of a good outcome/prognosis should he have a cardiopulmonary event and patient ex- would still like to keep him a full code. Advanced Care Planning Face to Face Time: 16 minutes. Charges/Coding Visit Charges Inpatient E&M: 54430 Init Hosp L3 Procedures Hospitalists Procedures: 23476 Advncd Care Plan 30 Min
[2025-04-07 21:48] LABS: Mucous, Urine 0 SEEN /hpf (<or=2+); Squamous Epithelial Cells - UA 0 SEEN /hpf (0-5)
[2025-04-07 22:07] LABS: Color, Urine Yellow (Yellow); Glucose, Dipstick Normal (Normal); Ketone-Dipstick Negative (Negative); Leukocyte Esterase-Dipstick 500 /ul (Negative); Nitrite-Dipstick Negative (Negative); Occult Blood-Urine 250 /ul (Negative); Protein-Dipstick 100 mg/dl (Negative); Specific Gravity, Urine 1.015 (1.002-1.030); Urine Bilirubin Dipstick Negative (Negative)
[2025-04-07 22:25] LABS: Red Blood Cells-Urine 50-100 SEEN /hpf (0-5)
[2025-04-07 22:26] LABS: Magnesium 1.7 mg/dL (1.5-2.2)
--- NOTE | 2025-04-07 22:28 | ED.RN ---
pt's ex Sylvia (POA) would like to be updated through out the night
--- OUTSIDE RECORDS SUMMARY | 2025-04-07 23:26 | XMS RPT_ITS | CCD ---
Author Organization [facility] Care Team Providers Care Leather Stitcher Name Role Phone Sergey HERNANDEZ, Maurice Soria Primary Care Provider Care Physician, No Primary Primary Care Provider Unavailable Dr. Danny Hutton DO Attending Provider Dr. Danny Hutton DO Emergency Provider Dr. Luis Carlos Anderson DO Emergency Provider Mone HERNANDEZ, Dr. Maria Guadalupe Carlson Admit Provider Dr. Maria Guadalupe Shore MD Referring Provider Dr. Maria Guadalupe Shore MD Other Provider [phone] Rick Carlin DO Attending Provider Erin [...] Referring Provider BILLDIANE Parada Other Provider Bailee KINESIOLOGY PROFESSOR-C, Jasmine Attending Provider Shaun HERNANDEZ, Dr. Campo Emergency Provider Caro DO, Dr. Alejandre Attending Provider Unav ailable Care Physician, No Primary Primary Care Provider Unavailable Justomescalero service unitLucero NOYOLA, Dr. Delgado Attending Provider CorazonDr. Danny [...] Provider Desmond HERNANDEZ, Dr. Snow Other [facility] karma Venegas MD, Dr. Whyte Other Provider Laurent HERNANDEZ, Dr. Raya Other Provider [phone] Angely HERNANDEZ, Dr. Silver Other Provider Jazmyne [...] Referring Provider BILLDIANE Parada Other Provider Bailee KINESIOLOGY PROFESSOR-C, Jasmine Attending Provider Shaun HERNANDEZ, Dr. Campo [...] Dr. Scott Weston DO Other Provider Elie KINESIOLOGY PROFESSOR-C, Yue Other Provider Caro DO, Dr. Alejandre Referring Provider Unav ailable Shila HERNANDEZ, Dr. Buster Barr Attending Provider Dr. Buster Fuchs MD Referring Provider Dr. Hill Acuña MD Attending Provider Unavaila priscila Powers MD, Dr. Vázquez Other Provider Unavailable Primary Care Provider Radha Carlson MD, Dr. Kevin Emergency Provider Nilsa NOYOLA, Dr. Rowe Admit Provider Gio HERNANDEZ, Dr. Vázquez Admit Provider Tannhof KINESIOLOGY PROFESSOR-C, Josy Primary Care Provider Tannhof KINESIOLOGY PROFESSOR-C, Josy Attending Provider KATHIE POWERS Referring Unavailable DAY PRICE Admitting Unavailable YOUNG CRUZ Attending Unavailable Care Physician, No Primary Primary Care Provider [facility]available [facility] KINESIOLOGY PROFESSOR-C, Josy Referring Provider Wei NOYOLA, Dr. Shook [...] Ashely HERNANDEZ, Dr. Foote Other Provider [phone] Cassandra HERNANDEZ, Dr. Garvin Other Provider Dr. Will Lobo MD Other Provider [phone] Mina Xie MD Other Provider Dr. Betty Pruett MD Other Provider Dr. Gwendolyn Logan MD Other Provider Unavailabl karma Venegas MD, Dr. Whyte Other Provider Laurent HERNANDEZ, Dr. Raya Other Provider Angely HERNANDEZ, Dr. Silver Other Provider Dr. Mason Samano DO Other Provider [phone] Carmela HERNANDEZ, Dr. Tam Other Provider [phone] Mallorie HERNANDEZ, Dr. Kelly Other Provider [...] HERNANDEZ, Dr. Hill Alcaraz Other Provider [phone] Ashli HERNANDEZ, Dr. Aguilar Other Provider Missael HERNANDEZ, Dr. Cotton Other Provider Ashely HERNANDEZ, Dr. Foote Other Provider [phone] Cassandra HERNANDEZ, Dr. Garvin Other Provider [phone] Dr. Will Lobo MD Other Provider [phone] Dr. Mina Xie MD Other Provider [phone] Seble HERNANDEZ, Dr. Hernández Other Provider Desmond HERNANDEZ, Dr. Snow Other Provider [facility] karma Mosher MD, Dr. Douglas Other Provider [phone] Theo HERNANDEZ, Dr. Whyte Other Provider Laurent [...] Provider Dr. Breann Mendez DO Emergency Provider [phone] Dr. Yaritza Leo DO Admit Provider Dr. Yaritza Leo DO Attending Provider Care Physician, No Primary Primary Care Provider Unavailable de Kyle NOYOLA, Dr. Alejandre Admit Provider Unavail able de Kyle NOYOLA, Dr. Alejandre Other Provider Unavail able Abiodun HERNANDEZ, Dr. Foster Rivas Other Provider [phone] Dr. Jae Ash DO Attending Provider Dr. [...] Jeremi NOYOLA, Dr. Enriquez Other Provider John KINESIOLOGY PROFESSOR-C, Mar Attending Provider Presley HERNANDEZ, Dr. Marques [...] Ashli HERNANDEZ, Dr. Aguilar Other Provider [phone] Missael HERNANDEZ, Dr. Cotton Other Provider [phone] Ashely HERNANDEZ, Dr. Foote Other Provider Cassandra HERNANDEZ, Dr. Garvin Other Provider Yamil HERNANDEZ, Dr. Solis Other Provider Rojas HERNANDEZ, Dr. Enriquez Other Provider Seble HERNANDEZ, Dr. Hernández Other Provider Desmond HERNANDEZ, Dr. Snow Other Provider Unavailabl karma Mosher MD, Dr. Douglas Other Provider [phone] Theo HERNANDEZ, Dr. Whyte Other Provider Laurent [...] CALLAHAN Attending Provider DIANE CALLAHAN Referring Provider [phone] Roby Balderas MD Attending Provider Maria Guadalupe Shore Referring Unavailable WhiteMaria Guadalupe L Admitting Unavailable WhiteMaria Guadalupe Consulting Unavailable Care Physician, No Primary Primary Care Unava ilable Rick Carlin Attending Unavailable Erin, Jayaprakas Consulting Unavailable Rick Carlin Consulting Unavailable Boone Izquierdo Attending Unavailable Hill Caro Consulting Unavailable Hill Caro Admitting Unavailable Care Physician, No Primary Primary Care Unava ilable Teto, Anurag Consulting Unavailable Jae Ash Consulting Unavailable Thai Thurston Consulting Unavailable Erin, Jayaprakas Consulting Unavailable Foster Rascon Consulting Unavailable Boone Izquierdo Consulting Unavailable Yaritza Leo Consulting Unavailable Yaritza Leo Admitting Unavailable Josy Elias Primary Care Unavailable Jefferson Malave Attending Unavailable Teto, Anurag Referring Unavailable Jefferson Malave Consulting Unavailable Cielo Tovar Consulting Unavailable Josy Elias Primary Care Unavailable Josy Elias Attending Unavailable Josy Elias Referring Unavailable GIRDHAR, VIKIL Referring Unavailable GIRDHAR, VIKIL Consulting Unavailable Bailee KINESIOLOGY PROFESSOR, Jasmine Attending Unavailable Care Physician, No Primary Primary Care Unava ilable Mina Blood Consulting Unavailable Jerald Sherwood Primary Care Unavailable Mina Blood Referring Unavailable Mar Lopez Attending Unavailable Kathie Powers Attending Unavailable Hill Caro Consulting Unavailable Hill Caro Admitting Unavailable Care Physician, No Primary Primary Care Unava ilable Foster Rascon Consulting Unavailable Buster Fuchs Consulting Unavailable Hill Acuña Consulting Unavailable Kathie Powers Consulting Unavailable Jae Ash Admitting Unavailable Care Physician, No Primary Primary Care Unava ilable Anurag Irene Attending Unavailable Jae Ash Consulting Unavailable Teto, Anurag Consulting Unavailable Jae Ash Admitting Unavailable Jae Ash Consulting Unavailable Care Physician, No Primary Primary Care Unava ilable Teto Anurag Attending Unavailable Teto, Anurag Consulting Unavailable Jae Ash Attending Unavailable Hill Acuña Attending Unavailable Care Physician, No Primary Primary Care Unava ilable Kathie Powers Consulting Unavailable Kathie Powers Admitting Unavailable Thai Thurston Consulting Unavailable Hill Acuña Consulting Unavailable Shila, Buster F Admitting Unavailable Shila, Buster F Consulting Unavailable [facility], Josy Primary Care Unavailable Hill Acuña Attending Unavailable Hill Acuña Consulting Unavailable Buster Fuchs F Attending Unavailable Davidoniphillip, Buster F Consulting Unavailable Shila, Buster F Admitting Unavailable Tannho, Josy Primary Care Unavailable Hill Acuña Attending Unavailable Boone Izquierdo Attending Unavailable Hill Caro Consulting Unavailable Hill Caro Admitting Unavailable Care Physician, No Primary Primary Care Unava ilable Anurag Irene Consulting Unavailable Jae Ash Consulting Unavailable Thai Thurston Consulting Unavailable Erin, Yomis Consulting Unavailable Foster Rascon Consulting Unavailable Kathie Powers Admitting Unavailable Kathie Powers Consulting Unavailable [facility], Josy Primary Care Unavailable Rick Carlin Attending Unavailable [facility], Josy Primary Care Unavailable Alber Dunn Attending Unavailable Mina Blood Attending Unavailable [facility], Josy Primary Care Unavailable [facility], Josy Referring Unavailable [facility], Josy Primary Care Unavailable [facility] Josy Consulting Unavailable Julita Glover Attending Unavailable GIRCORTNEYAR, VIKIL Referring Unavailable GIRDHAR, VIKIL Attending Unavailable Care Physician, No Primary Primary Care Unava ilable ARNOLDO CARTER Attending Unavailable GIRCORTNEYAR, VIKIL Referring Unavailable Care Physician, No Primary Primary Care Unava ilable Jae Ash Consulting Unavailable [facility]y Primary Care Unavailable Jae Ash Admitting Unavailable Anurag Irene Attending Unavailable Niranjan Li Consulting Unavailable Boone Izquierdo Consulting Unavailable Boone Izquierdo Admitting Unavailable Yaritza Leo Attending Unavailable Jerald Sherwood Primary Care Unavailable Yaritza Leo Consulting Unavailable Yaritza Leo Admitting Unavailable [facility]annhof, Josy Primary Care Unavailable Anurag Irene Attending Unavailable Jefferson Malave Consulting Unavailable Aleyda Bautista Consulting Unavailable Cielo Tovar Consulting Unavailable White, Maria Guadalupe L Admitting Unavailable White, Maria Guadalupe L Referring Unavailable White Maria Guadalupe L Consulting Unavailable Care Physician, No Primary Primary Care Unava ilable Rick Carlin Attending Unavailable Erin, Jayaprakas Consulting Unavailable Roby Balderas Referring Unavailable Roby Balderas Attending Unavailable [facility], Josy Primary Care Unavailable GIRSUPRIYA BENSONL Referring Unavailable SUPRIYA CARTERL Attending Unavailable [facility] Josy Primary Care Unavailable Sherwood, Jerald Attending Unavailable Sherwood, Jerald Primary Care Unavailable Jerald Sherwood Referring Unavailable Mina Blood Referring Unavailable Mina Blood Attending Unavailable Sherwood, Jerald Primary Care Unavailable [facility], Josy Primary Care Unavailable Jose Fox Attending Unavailable Hill Acuña Attending Unavailable Niranjan Li Attending Unavailable Buster Fuchs Referring Unavailable John Paul Masterson Consulting Unavailable Buster Fuchs Attending Unavailable Christian Abdi Consulting Unavailable Juarez Baird Consulting Unavailable Bola Meraz Consulting Unavailable Hill Renee Consulting Unavailable Jeff Cornelius Consulting Unavailable Yury Canas Consulting Unavailable Ivett Lunds Consulting UnavailBharathi East Consulting Unavailable Will Lobo Consulting Unavailable Mina Xie Consulting Unavailable Betty Pruett Consulting Unavailable Gwendolyn Logan Consulting Unavailable Stella Mosher Consulting Unavailable Theo Pato Consulting Unavailable Elver Mancilla Consulting Unavailable Nadeem Au Consulting Unavailable Mason Samano Consulting Unavailable Anel Casey Consulting Unavailable Robin Nobles Consulting Unavailable Kenneth Noland Consulting Unavailable Lupillo Robbins Consulting Unavailable Young Richardson Consulting Unavailable [facility], Josy Primary Care Unavailable Josy Elias Attending Unavailable Jae Ash Admitting Unavailable Jae Ash Consulting Unavailable Anurag Irene Attending Unavailable Care Physician, No Primary Primary Care Unava ilable Hill Acuña Attending Unavailable Care Physician, No Primary Primary Care Unava ilable Kathie Powers Consulting Unavailable Kathie Powers Admitting Unavailable Thai Thurston Consulting Unavailable Kathie Powers Attending Unavailable Cielo Tovar Referring Unavailable Bola Meraz Attending Unavailable Cielo Tovar Attending Unavailable John Paul Masterson Consulting Unavailable Che Abdin Consulting Unavailable Juarez Baird Consulting Unavailable Bola Meraz Consulting Unavailable Hill Renee Consulting Unavailable Jeff Cornelius Consulting Unavailable Missael, Yury Consulting Unavailable Ashely, Dary Consulting Unavailab le Dand, Bharathi Consulting Unavailable Lobo, Will Consulting Unavailable Xie, Mina Consulting Unavailable Seble, Betty Consulting Unavailable Aljundi, Lamia Consulting Unavailable Mosher, Stella Consulting Unavailable Theo, Pato Consulting Unavailable Irukulla, Elver Consulting Unavailable Angely, Nadeem Consulting Unavailable Dhesi, Mason Consulting Unavailable Casey, Sujoy Consulting Unavailable Hinsdale, Soleyah Consulting Unavailable Fernstrom, Kenneth Consulting Unavailable Rosendo, Lupillo Consulting Unavailable Dylan, Young Consulting Unavailable Yaritza Leo Attending Unavailable Aleyda Bautista Consulting Unavailable Roby Balderas Attending Unavailable Curt Josy Primary Care Unavailable Josy Elias Referring Unavailable Niranjan Li Attending Unavailable John Paul [...] Mason Consulting Unavailable Casey, Sujoy Consulting Unavailable [place], Soleyah Consulting Unavailable Fernstrom, Kenneth Consulting Unavailable Rosendo, Lupillo Consulting Unavailable Young Richardson Consulting Unavailable Bola Meraz Attending Unavailable Hill Caro Referring Unavailable Hill Caro Attending Unavailable Jerald Sherwood Primary Care Unavailable Luis Carlos Anderson Attending Unavailable Mina Blood Attending Unavailable Jerald Sherwood Primary Care Unavailable Care Physician, No Primary Primary Care Unava ilable Danny Hutton Attending UnavailJosy Bauman Primary Care Unavailable Boone Carvajal Attending Unavailable Anurag Irene Attending Unavailable Anurag Irene Consulting Unavailable Roby Balderas Consulting Unavailable Roby Balderas Attending Unavailable Josy Elias Primary Care Unavailable Roby Balderas Referring Unavailable Josy Elias Primary Care Unavailable Josy Elias Referring Unavailable Anurag Irene Attending Unavailable Jerald Sherwood Referring Unavailable [facility], Josy Primary Care Unavailable Nelida Harris Attending Unavailable Kathie Powers Consulting Unavailable [facility], Josy Primary Care Unavailable Kathie Powers Admitting Unavailable Rick Carlin Attending Unavailable Rick Carlin Consulting Unavailable Friend, Niranjan Attending Unavailable Rick Carlin Referring Unavailable Kathie Powers Attending Unavailable [facility], Josy Primary Care Unavailable Friend, Niranjan Attending Unavailable Jae Ash Admitting Unavailable [facility], Josy Primary Care Unavailable Jae Ash Consulting Unavailable Teto, Anurag Referring Unavailable Friend, Niranjan Consulting Unavailable Teto, Anurag Consulting Unavailable Teto Anurag Attending Unavailable Sherwood, Jerald Primary Care Unavailable Jae Ash Attending Unavailable Boone Izquierdo Admitting Unavailable Boone Izquierdo Consulting Unavailable Yaritza Leo Attending Unavailable [facility] Primary Care Unavailable Yaritza Leo Consulting Unavailable Boone Izquierdo Attending Unavailable [facility], Jerald Primary Care Unavailable Teto, Anurag Attending Unavailable Bola Meraz Attending Unavailable Teto, Anurag [...] Mancilla Consulting Unavailable Angely, Nadeem Consulting Unavailable Dhesi, Mason Consulting Unavailable Carmela Sujoy Consulting Unavailable Robin Nobles Consulting Unavailable Kenneth Noland Consulting Unavailable Lupillo Robbins Consulting Unavailable Young Richardson Consulting Unavailable Hill Caro Attending Unavailable Hill Herrmann Consulting Unavailable Blair Cage Consulting Unavailable Thiago Wray Consulting Unavailable Gabbi Hughes Consulting Unavailable Thai Godfrey Consulting Unavailable Juan Daniel Garza Consulting Unavailable Zachariah Glover Consulting Unavailable Scott Weston Consulting Unavailable Elie ROSA, Yue Consulting Unavailable Bola Meraz Attending Unavailable Maria Guadalupe Shore Attending Unavailable Jae Ash Attending Unavailable Kathie Powers Attending Unavailable Hill [...] Consulting Unavailable Yue Delgadillo NP Consulting Unavailable Medications Current Medications Medication Drug [...] 11/03/2024 Active take 2 tablets by mo uth once daily furosemide (LASIX) 20 mg tablet [...] Start: 11-18-2024 take 1 capsule by mo mdh once daily zinc sulfate 220 mg (50 [...] Test Name Value Interpretation Reference Range Facility 12 Lead EKGon 04-03-2025 12 Lead EKG Normal [facility] CBC W/Diff, Automatedon 08-3 Absolute Neut Normal 2.0-7.7 [facility] Comment on above: Result Comment: Canc elled via OM: MD Ordered Performed By: #### L 100.0100, L300.3900, L500.4050 ####[facility] [address] [place], [address] HCT Normal 40-54 [facility] Comment on above: Result Comment: Canc elled via OM: MD Ordered Performed By: #### L 100.0100, L300.3900, L500.4050 ####[facility] [address] [place], [address] HGB Normal 13.0-16.5 [facility] Comment on above: Result Comment: Canc elled via OM: MD Ordered Performed By: #### L 100.0100, L300.3900, L500.4050 ####[facility] [address] [place], [address] MCH Normal 27.0-32.0 [facility] Comment on above: Result Comment: Canc elled via OM: MD Ordered Performed By: #### L 100.0100, L300.3900, L500.4050 ####[facility] [address] [place], [address] MCHC Normal 32-36 [facility] Comment on above: Result Comment: Canc elled via OM: MD Ordered Performed By: #### L 100.0100, L300.3900, L500.4050 ####[facility] [address] [place], [address] MCV Normal 80-94 [facility] Comment on above: Result Comment: Canc elled via OM: MD Ordered Performed By: #### L 100.0100, L300.3900, L500.4050 ####[facility] [address] [place], [address] NEUT% Normal 47-70 [facility] Comment on above: Result Comment: Canc elled via OM: MD Ordered Performed By: #### L 100.0100, L300.3900, L500.4050 ####[facility] [address] [place], [address] PLT Normal 150-450 [facility] Comment on above: Result Comment: Canc elled via OM: MD Ordered Performed By: #### L 100.0100, L300.3900, L500.4050 ####[facility] [address] [place], [address] RBC Normal 4.6-6.2 [facility] Comment on above: Result Comment: Canc elled via OM: MD Ordered Performed By: #### L 100.0100, L300.3900, L500.4050 ####[facility] [address] [place], [address] RDW CV Normal 11.6-14.6 [facility] Comment on above: Result Comment: Canc elled via OM: MD Ordered Performed By: #### L 100.0100, L300.3900, L500.4050 ####[facility] [address] [place], [address] RDW SD Normal 35.1-43.9 [facility] Comment on above: Result Comment: Canc elled via OM: MD Ordered Performed By: #### L 100.0100, L300.3900, L500.4050 ####[facility] [address] [place], [address] WBC Normal 4.4-11.0 [facility] Comment on above: Result Comment: Canc elled via OM: MD Ordered Performed By: #### L 100.0100, L300.3900, L500.4050 ####[facility] [address] [place], [address] Comprehensive Metabolic Prof ilon 04-03-2025 ALB Normal 3.5-5.0 [facility] Comment on above: Result Comment: Canc elled via OM: MD Ordered Performed By: #### L 100.0100, L300.3900, L500.4050 ####[facility] [address] [place], [address] ALK PHOS Normal 40-129 [facility] Comment on above: Result Comment: Canc elled via OM: MD Ordered Performed By: #### L 100.0100, L300.3900, L500.4050 ####[facility] [address] [place], [address] ALT Normal <=46 [facility] Comment on above: Result Comment: Canc elled via OM: MD Ordered Performed By: #### L 100.0100, L300.3900, L500.4050 ####[facility] [address] [place], [address] AST Normal <=37 [facility] Comment on above: Result Comment: Canc elled via OM: MD Ordered Performed By: #### L 100.0100, L300.3900, L500.4050 ####[facility] [address] [place], [address] BUN Normal 4-19 [facility] Comment on above: Result Comment: Canc elled via OM: MD Ordered Performed By: #### L 100.0100, L300.3900, L500.4050 ####[facility] [address] [place], [address] BUN/CRE Normal 10-20 [facility] Comment on above: Result Comment: Canc elled via OM: MD Ordered Performed By: #### L 100.0100, L300.3900, L500.4050 ####[facility] [address] [place], [address] Calcium Normal 7.6-11.0 [facility] Comment on above: Result Comment: Canc elled via OM: MD Ordered Performed By: #### L 100.0100, L300.3900, L500.4050 ####[facility] [address] [place], [address] CL Normal 98-108 [facility] Comment on above: Result Comment: Canc elled via OM: MD Ordered Performed By: #### L 100.0100, L300.3900, L500.4050 ####[facility] [address] [place], [address] CO2 Normal 21.0-32.0 [facility] Comment on above: Result Comment: Canc elled via OM: MD Ordered Performed By: #### L 100.0100, L300.3900, L500.4050 ####[facility] [address] [place], [address] CREAT,SERUM Normal 0.70-1.20 [facility] Comment on above: Result Comment: Canc elled via OM: MD Ordered Performed By: #### L 100.0100, L300.3900, L500.4050 ####[facility] [address] [place], [address] eGFR Normal >60 [facility] Comment on above: Result Comment: Canc elled via OM: MD Ordered Performed By: #### L 100.0100, L300.3900, L500.4050 ####[facility] [address] [place], [address] GAP Normal 5-15 [facility] Comment on above: Result Comment: Canc elled via OM: MD Ordered Performed By: #### L 100.0100, L300.3900, L500.4050 ####[facility] [address] [place], [address] GLU Normal 70-99 [facility] Comment on above: Result Comment: Canc elled via OM: MD Ordered Performed By: #### L 100.0100, L300.3900, L500.4050 ####[facility] [address] [place], [address] Potassium Normal 3.3-5.1 [facility] Comment on above: Result Comment: Canc elled via OM: MD Ordered Performed By: #### L 100.0100, L300.3900, L500.4050 ####[facility] [address] [place], [address] T BILI Normal 0.00-1.30 [facility] Comment on above: Result Comment: Canc elled via OM: MD Ordered Performed By: #### L 100.0100, L300.3900, L500.4050 ####[facility] [address] [place], [address] T PROT Normal 5.9-8.4 [facility] Comment on above: Result Comment: Canc elled via OM: MD Ordered Performed By: #### L 100.0100, L300.3900, L500.4050 ####[facility] [address] [place], [address] Comprehensive Metabolic Profil Normal 133-145 [facility] Comment on above: Result Comment: Canc elled via OM: MD Ordered Performed By: #### L 100.0100, L300.3900, L500.4050 ####[facility] [address] [place], [address] Emergency Department Summary on 04-03-2025 Emergency Department Summary Normal [facility] Prothrombin Time w/INRon INR Normal [facility] Comment on above: Result Comment: Canpastora elled via OM: MD Ordered Performed By: #### L 100.0100, L300.3900, L500.4050 ####[facility] [address] [place], [address] PROTIME Normal 11.7-14.9 [facility] Comment on above: Result Comment: Canpastora elled via OM: MD Ordered Performed By: #### L 100.0100, L300.3900, L500.4050 ####[facility] [address] [place], [address] Bedside Glucoseon 03-31-2025 FINGERSTICK GLU 111 mg/dL High 74-106 [facility] Comment on above: Result Comment: BRISA MOROCHO OF PATIENT CARE PER NURSING PROTOCOL Performed By: #### L 501.080 ####[facility] [address] [place], [address] Discharge Instructionon 03-05 Discharge Instruction Normal [facility] MR/POSTOP.ANEon 03-30-2025 MR/POSTOP.ANE Normal [facility] MR/[id number] 03-30-2025 MR/POSTOPAN2 Normal [facility] Operative Reporton Operative Report Normal [facility] Bedside Glucoseon 08-26-2025 FINGERSTICK GLU 147 mg/dL High 74-106 [facility] Comment on above: Result Comment: BRISA MOROCHO OF PATIENT CARE PER NURSING PROTOCOL Performed By: #### L 501.080 ####[facility] [address] [place], [address] Absolute lymphocyte countOrd ered By: Day Bird on 03-11-2025 Lymphocytes Auto (Unsp spec) [#/Vol] 1.03 10*3/uL 0.83-4.51 [facility] Anion gap in Serum or Plasma Ordered By: Day Bird on 03-11-2025 Anion gap [Moles/Vol] 11 mmol/L 5-15 [facility] Automated lymphocyte count a s percentage of total leukocytesOrdered By: Day Bird on 03-11-2025 Lymphocytes/100 WBC Auto (Unsp spec) 12.6 % Low 19-41 [facility] BUN/creatinine ratioOrdered By: Day Bird on 03-11-2025 Urea nitrogen/Creatinine [Mass ratio] 12.0 mg/mg 10-20 [facility] Basic Metabolic Profile (BMP )on 03-11-2025 BUN/CRE 12.0 RATIO Normal 10-20 [facility] Comment on above: Performed By: #### L 500.2500, L100.0100, L501.6901 ####[facility] [address] [place], [address] Calcium [Mass/Vol] 8.0 mg/dL Normal 7.6-11.0 [facility] Comment on above: Performed By: #### L 500.2500, L100.0100, L501.6901 ####[facility] [address] [place], [address] Chloride [Moles/Vol] 96 mmol/L Low 98-108 [facility] Comment on above: Performed By: #### L 500.2500, L100.0100, L501.6901 ####[facility] [address] [place], [address] CO2 [Moles/Vol] 21.4 mmol/L Normal 21.0-32.0 [facility] Comment on above: Performed By: #### L 500.2500, L100.0100, L501.6901 ####[facility] [address] [place], [address] Creatinine [Mass/Vol] 1.30 mg/dL High 0.70-1.20 [facility] Comment on above: Performed By: #### L 500.2500, L100.0100, L501.6901 ####[facility] [address] [place], [address] ECRCL 69.27 ml/min Normal 50-250 [facility] Comment on above: Performed By: #### L 500.2500, L100.0100, L501.6901 ####[facility] [address] [place], [address] GAP 11 Normal 5-15 [facility] Comment on above: Performed By: #### L 500.2500, L100.0100, L501.6901 ####[facility] [address] [place], [address] GFR/1.73 sq M.predicted among non-blacks MDRD (S/P/Bld) [Vol rate/Area] 64 mL/min/{1.73_m2} Normal >60 [facility] Comment on above: Result Comment: mL/m in/1.73m2 CKD-EPI Creatinine Equation (2020) Performed By: #### L 500.2500, L100.0100, L501.6901 ####[facility] [address] [place], [address] Glucose [Mass/Vol] 495 mg/dL Invalid Interpretation Code 70-99 [facility] Comment on above: Result Comment: Crit ical Result(s) Called DEE ROCA at: 1812 by:LAURIE??Results read back by same. Performed By: #### L 500.2500, L100.0100, L501.6901 ####[facility] [address] [place], [address] Potassium [Moles/Vol] 2.8 mmol/L Low 3.3-5.1 [facility] Comment on above: Performed By: #### L 500.2500, L100.0100, L501.6901 ####[facility] [address] [place], [address] Sodium [Moles/Vol] 128 mmol/L Low 133-145 [facility] Comment on above: Performed By: #### L 500.2500, L100.0100, L501.6901 ####[facility] [address] [place], [address] Urea nitrogen [Mass/Vol] 16 mg/dL Normal 4-19 [facility] Comment on above: Performed By: #### L 500.2500, L100.0100, L501.6901 ####[facility] [address] [place], [address] Basophil percentageOrdered B y: Day Bird on 03-11-2025 Basophils/100 WBC (Bld) 0.6 % 0-1 [facility] Bedside Glucoseon 03-11-2025 FINGERSTICK GLU 412 mg/dL High 74-106 [facility] Comment on above: Result Comment: BRISA MOROCHO OF PATIENT CARE PER NURSING PROTOCOL Performed By: #### L 501.080 ####[facility] [address] [place], [address] FINGERSTICK GLU 494 mg/dL Invalid Interpretation Code [address] [place] [address] Comment on above: Result Comment: Dr Amalia CabralMANAGEMENT OF PATIENT CARE PER NURSING PROTOCOL Performed By: #### L 501.080 ####[facility] [address] [place], [address] FINGERSTICK GLU > 500 Invalid Interpretation Code 74-106 [facility] Comment on above: Result Comment: Dr Amalia webster FollowedMANAGEMENT OF PATIENT CARE PER NURSING PROTOCOL Performed By: #### L 501.080 ####[facility] [address] [place], [address] Beta-Hydroxbytyrateon 2024 BETA-HYDROXYBUT 0.0 mmol/L Normal 0.0-0.3 [facility] Comment on above: Performed By: #### L 500.2500, L100.0100, L501.6901 ####[facility] [address] [place], [address] Beta-hydroxybutyrateOrdered By: Day Bird on 03-11-2025 Beta hydroxybutyrate [Mass/Vol] 0.0 mmol/L 0.0-0.3 [facility] Blood manual differential co mment interpretation (narrative result)Ordered By: Day Bird on 03-11-2025 Manual differential comment Marco Antonio (Bld) [Interp] SCANNED [facility] CBC W/Diff, Automatedon PLT EST MOD DEC Normal ADEQ [facility] Comment on above: Performed By: #### L 500.2500, L100.0100, L501.6901 ####[facility] [address] [place], [address] SMEAR COMMENT SCANNED Normal [facility] Comment on above: Performed By: #### L 500.2500, L100.0100, L501.6901 ####[facility] [address] [place], [address] Platelet mean volume (Bld) [Entitic vol] 12.1 fL High 6.2-12.0 [facility] Comment on above: Performed By: #### L 500.2500, L100.0100, L501.6901 ####[facility] [address] [place], [address] Platelets (Bld) [#/Vol] 94 10*3/uL Low 150-450 [facility] Comment on above: Performed By: #### L 500.2500, L100.0100, L501.6901 ####[facility] [address] [place], [address] Carbon dioxide, total [Moles /volume] in Central venous bloodOrdered By: Day Bird on 03-11-2025 CO2 [Moles/Vol] 21.4 mmol/L 21.0-32.0 [facility] Chloride assayOrdered By: Sarah Bird on 03-11-2025 Chloride [Moles/Vol] 96 mmol/L Low 98-108 [facility] Emergency Department Summary on 03-11-2025 Emergency Department Summary Normal [facility] Eosinophil percentageOrdered By: Day Bird on 03-11-2025 Eosinophils/100 WBC (Bld) 5.2 % High 0-5 [facility] Erythrocyte distribution wid th ratioOrdered By: Day Bird on 03-11-2025 Erythrocyte distribution width (RBC) [Ratio] 18.8 % High 11.6-14.6 [facility] Erythrocyte distribution wid th standard deviationOrdered By: Day Bird on 03-11-2025 Erythrocyte distribution width (RBC) [Ratio] 63.4 fl High 35.1-43.9 [facility] Glomerular filtration rate ( GFR) estimation/1.73 sq m using serum, plasma, or whole bOrdered By: Day Bird on 03-11-2025 GFR/1.73 sq M.predicted among non-blacks MDRD (S/P/Bld) [Vol rate/Area] 64 mL/min/{1.73_m2} >60 [facility] Glucose measurement at bedsi deOrdered By: Alber Dunn on 03-11-2025 Glucose [Mass/Vol] 412 mg/dL High 74-106 [facility] Hematocrit Auto (Bld) [Volum e fraction]Ordered By: Day Bird on 03-11-2025 Hematocrit (Bld) [Volume fraction] 23.7 % Low 40-54 [facility] Hemoglobin measurementOrdere d By: Day Bird on 03-11-2025 Hemoglobin (Bld) [Mass/Vol] 8.0 g/dL Low 13.0-16.5 [facility] Immature granulocytes/100 WB C Auto (Bld)Ordered By: Day Bird on 03-11-2025 Immature granulocytes/100 WBC (Bld) 0.500 % 0.0-0.9 [facility] MCV (mean corpuscular volume ) determinationOrdered By: Day Bird on 03-11-2025 MCV (RBC) [Entitic vol] 92.6 fL 80-94 [facility] Mean corpuscular hemoglobin (MCH) determinationOrdered By: Day Bird on 03-11-2025 MCH (RBC) [Entitic mass] 31.3 pg 27.0-32.0 [facility] Monocyte percentageOrdered B y: Day Bird on 03-11-2025 Monocytes/100 WBC (Bld) 10.9 % High 0-10 [facility] Neutrophil percentageOrdered By: Day Bird on 03-11-2025 Neutrophils/100 WBC (Bld) 70.2 % High 47-70 [facility] Platelet countOrdered By: Sarah Bird on 03-11-2025 Platelets (Bld) [#/Vol] 94 10*3/uL Low 150-450 [facility] Platelet estimateOrdered By: Day Bird on 03-11-2025 Platelets LM Ql (Bld) MOD DEC ADEQ [facility] Potassium measurement (mass/ volume)Ordered By: Day Bird on 03-11-2025 Potassium (Unsp spec) [Mass/Vol] 2.8 mmol/L Low 3.3-5.1 [facility] RBC Auto (Bld) [#/Vol]Ordere d By: Day Bird on 03-11-2025 RBC (Bld) [#/Vol] 2.56 10*6/uL Low 4.6-6.2 [facility] Serum creatinine measurement (mass/volume)Ordered By: Day Bird on 03-11-2025 Creatinine [Mass/Vol] 1.30 mg/dL High 0.70-1.20 [facility] Serum glucose measurement (m ass/volume)Ordered By: Day Bird on 03-11-2025 Glucose [Mass/Vol] 495 mg/dL High 70-99 [facility] Serum or plasma calcium roosevelt urement (mass/volume)Ordered By: Dayestuardo Bird on 03-11-2025 Calcium [Mass/Vol] 8.0 mg/dL 7.6-11.0 [facility] Serum or plasma urea nitroge n measurement (mass/volume)Ordered By: Day Bird on 03-11-2025 Urea nitrogen [Mass/Vol] 16 mg/dL 4-19 [facility] Sodium levelOrdered By: Day Bird on 03-11-2025 Sodium [Moles/Vol] 128 mmol/L Low 133-145 [facility] White blood cell (WBC) count Ordered By: Day Bird on 03-11-2025 WBC (Bld) [#/Vol] 8.2 10*3/uL 4.4-11.0 [facility] MR/PAT.ANEon 03-10-2025 MR/PAT.ANE Normal [facility] Surgery Visit Reporton 03-10 Surgery Visit Report Normal [facility] Paracentesis with USon 03-04 Paracentesis with US Normal [facility] Culture, Anaerobic Any Sourc iliana 03-03-2025 CUAN No growth in 5 days. Normal [facility] Comment on above: Performed By: #### M 100.2900, M100.4001, M100.2000, L200.0200, L400.0001 ####[facility] [address] [place], [place], [address] Body Fluid Cell Count+Diffon 02-28-2025 PATH COMM/BF Reviewed Normal [facility] Comment on above: Order Comment: The r eference range and other method performancespecifications have not been established for this bodyfluid. The test must be integrated into the clinicalcontext for interpretation. Result Comment: NO M ALIGNANT CELLS IDENTIFIED.Pamella Umana MD 02/28/2025 AMENDED REPORT 02/28/25 1556 PATH COMM/BF previously reported as: May follow Performed By: #### M 100.2900, M100.4001, M100.2000, L200.0200, L400.0001 ####[facility] [address] [place], [address] Absolute lymphocyte countOrd ered By: Rick Carlin on 02-27-2025 Lymphocytes Auto (Unsp spec) [#/Vol] 1.53 10*3/uL 0.83-4.51 [facility] Anion gap in Serum or Plasma Ordered By: Rick Carlin on 02-27-2025 Anion gap [Moles/Vol] 10 mmol/L 5-15 [facility] Automated lymphocyte count a s percentage of total leukocytesOrdered By: Rick Carlin on 02-27-2025 Lymphocytes/100 WBC Auto (Unsp spec) 18.6 % Low 19-41 [facility] BUN/creatinine ratioOrdered By: Rick Carlin on 02-27-2025 Urea nitrogen/Creatinine [Mass ratio] 13.0 mg/mg 10-20 [facility] Basophil percentageOrdered B y: Rick Carlin on 02-27-2025 Basophils/100 WBC (Bld) 0.9 % 0-1 [facility] Bedside Glucoseon 02-27-2025 FINGERSTICK GLU 368 mg/dL High 74-106 [facility] Comment on above: Result Comment: BRISA GEMENT OF PATIENT CARE PER NURSING PROTOCOL Performed By: #### L 501.080 ####[facility] [address] [place], [address] FINGERSTICK GLU 265 mg/dL High 74-106 [facility] Comment on above: Result Comment: BRISA GEMENT OF PATIENT CARE PER NURSING PROTOCOL Performed By: #### L 501.080 ####[facility] [address] [place], [address] Bilirubin, totalOrdered By: Rick Carlin on 02-27-2025 Bilirubin [Mass/Vol] 4.15 mg/dL High 0.00-1.30 [facility] Blood manual differential co mment interpretation (narrative result)Ordered By: Rick Carlin on 02-27-2025 Manual differential comment Marco Antonio (Bld) [Interp] SCANNED [facility] Blood polychromasia detectio n by light microscopyOrdered By: Rick Carlin on 02-27-2025 Polychromasia LM Ql (Bld) 1+ [facility] CBC W/Diff, Automatedon - Anisocytosis Ql (Bld) 2+ Normal [facility] Comment on above: Performed By: #### L 500.4050, L100.0100 ####[facility] [address] [place], [address] OVALOCYTE 1+ Normal [facility] Comment on above: Performed By: #### L 500.4050, L100.0100 ####[facility] [address] [place], [address] PLT EST SLT DEC Normal ADEQ [facility] Comment on above: Performed By: #### L 500.4050, L100.0100 ####[facility] [address] [place], [address] POLYCHROMASIA 1+ Normal [facility] Comment on above: Performed By: #### L 500.4050, L100.0100 ####[facility] [address] [place], [address] SMEAR COMMENT SCANNED Normal [facility] Comment on above: Performed By: #### L 500.4050, L100.0100 ####[facility] [address] [place], [address] Carbon dioxide, total [Moles /volume] in Central venous bloodOrdered By: Rick Carlin on 02-27-2025 CO2 [Moles/Vol] 20.8 mmol/L Low 21.0-32.0 [facility] Chloride assayOrdered By: Lissette Carlin on 02-27-2025 Chloride [Moles/Vol] 101 mmol/L 98-108 [facility] Comprehensive Metabolic Prof ilon 02-27-2025 Albumin [Mass/Vol] 2.2 g/dL Low 3.5-5.0 [facility] Comment on above: Performed By: #### L 500.4050, L100.0100 ####[facility] [address] [place], [address] Albumin/Globulin [Mass ratio] 0.7 {ratio} Low 0.9-2.4 [facility] Comment on above: Performed By: #### L 500.4050, L100.0100 ####[facility] [address] [place], [address] ALK PHOS 244 U/L High 40-129 [facility] Comment on above: Performed By: #### L 500.4050, L100.0100 ####[facility] [address] [place], [address] ALT [Catalytic activity/Vol] 43 U/L Normal <=46 [facility] Comment on above: Performed By: #### L 500.4050, L100.0100 ####[facility] [address] [place], [address] AST [Catalytic activity/Vol] 65 U/L High <=37 [facility] Comment on above: Performed By: #### L 500.4050, L100.0100 ####[facility] [address] [place], [address] Bilirubin [Mass/Vol] 4.15 mg/dL High 0.00-1.30 [facility] Comment on above: Performed By: #### L 500.4050, L100.0100 ####[facility] [address] [place], [address] BUN/CRE 13.0 RATIO Normal 10-20 [facility] Comment on above: Performed By: #### L 500.4050, L100.0100 ####[facility] [address] [place], [address] Calcium [Mass/Vol] 8.0 mg/dL Normal 7.6-11.0 [facility] Comment on above: Performed By: #### L 500.4050, L100.0100 ####[facility] [address] [place], [address] Chloride [Moles/Vol] 101 mmol/L Normal 98-108 [facility] Comment on above: Performed By: #### L 500.4050, L100.0100 ####[facility] [address] [place], [address] CO2 [Moles/Vol] 20.8 mmol/L Low 21.0-32.0 [facility] Comment on above: Performed By: #### L 500.4050, L100.0100 ####[facility] [address] [place], [address] Creatinine [Mass/Vol] 1.14 mg/dL Normal 0.70-1.20 [facility] Comment on above: Performed By: #### L 500.4050, L100.0100 ####[facility] [address] [place], [address] ECRCL 78.45 ml/min Normal 50-250 [facility] Comment on above: Performed By: #### L 500.4050, L100.0100 ####[facility] [address] [place], [address] GAP 10 Normal 5-15 [facility] Comment on above: Performed By: #### L 500.4050, L100.0100 ####[facility] [address] [place], [address] GFR/1.73 sq M.predicted among non-blacks MDRD (S/P/Bld) [Vol rate/Area] 75 mL/min/{1.73_m2} Normal >60 [facility] Comment on above: Result Comment: mL/m in/1.73m2 CKD-EPI Creatinine Equation (2020) Performed By: #### L 500.4050, L100.0100 ####[facility] [address] [place], [address] Globulin (S) [Mass/Vol] 3.3 g/dL Normal 2.2-4.2 [facility] Comment on above: Performed By: #### L 500.4050, L100.0100 ####[facility] [address] [place], [address] Glucose [Mass/Vol] 272 mg/dL High 70-99 [facility] Comment on above: Performed By: #### L 500.4050, L100.0100 ####[facility] [address] [place], [address] Potassium [Moles/Vol] 3.2 mmol/L Low 3.3-5.1 [facility] Comment on above: Performed By: #### L 500.4050, L100.0100 ####[facility] [address] [place], [address] Sodium [Moles/Vol] 131 mmol/L Low 133-145 [facility] Comment on above: Performed By: #### L 500.4050, L100.0100 ####[facility] [address] [place], [address] T PROT 5.5 g/dL Low 5.9-8.4 [facility] Comment on above: Performed By: #### L 500.4050, L100.0100 ####[facility] [address] [place], [address] Urea nitrogen [Mass/Vol] 15 mg/dL Normal 4-19 [facility] Comment on above: Performed By: #### L 500.4050, L100.0100 ####[facility] [address] [place], [address] Discharge Instructionon 02-02 Discharge Instruction Normal [facility] Eosinophil percentageOrdered By: Rick Carlin on 02-27-2025 Eosinophils/100 WBC (Bld) 6.2 % High 0-5 [facility] Erythrocyte distribution wid th ratioOrdered By: Rick Carlin on 02-27-2025 Erythrocyte distribution width (RBC) [Ratio] 21.7 % High 11.6-14.6 [facility] Erythrocyte distribution wid th standard deviationOrdered By: Rick Carlin on 02-27-2025 Erythrocyte distribution width (RBC) [Ratio] 68.2 fl High 35.1-43.9 [facility] Glomerular filtration rate ( GFR) estimation/1.73 sq m using serum, plasma, or whole bOrdered By: Rick Carlin on 02-27-2025 GFR/1.73 sq M.predicted among non-blacks MDRD (S/P/Bld) [Vol rate/Area] 75 mL/min/{1.73_m2} >60 [facility] Glucose measurement at [facility] deOrdered By: Rick Carlin on 02-27-2025 Glucose [Mass/Vol] 368 mg/dL High 74-106 [facility] Hematocrit Auto (Bld) [Volum e fraction]Ordered By: Rick Carlin on 02-27-2025 Hematocrit (Bld) [Volume fraction] 24.0 % Low 40-54 [facility] Hemoglobin measurementOrdere d By: Rick Carlin on 02-27-2025 Hemoglobin (Bld) [Mass/Vol] 8.2 g/dL Low 13.0-16.5 [facility] Immature granulocytes/100 WB C Auto (Bld)Ordered By: Rick Carlin on 02-27-2025 Immature granulocytes/100 WBC (Bld) 0.400 % 0.0-0.9 [facility] MCV (mean corpuscular volume ) determinationOrdered By: Rick Carlin on 02-27-2025 MCV (RBC) [Entitic vol] 89.6 fL 80-94 [facility] Mean corpuscular hemoglobin (MCH) determinationOrdered By: Rick Carlin on 02-27-2025 MCH (RBC) [Entitic mass] 30.6 pg 27.0-32.0 [facility] Monocyte percentageOrdered B y: Rick Carlin on 02-27-2025 Monocytes/100 WBC (Bld) 12.5 % High 0-10 [facility] Neutrophil percentageOrdered By: Rick Carlin on 02-27-2025 Neutrophils/100 WBC (Bld) 61.4 % 47-70 [facility] No Panel InformationOrdered By: Rick Carlin on 02-27-2025 2+ [facility] 65 U/L High <38 [facility] Ovalocyte detectionOrdered B y: Rick Carlin on 02-27-2025 Ovalocytes LM Ql (Bld) 1+ [facility] Platelet countOrdered By: Lissette Carlin on 02-27-2025 Platelets (Bld) [#/Vol] 133 10*3/uL Low 150-450 [facility] Platelet estimateOrdered By: Rick Carlin on 02-27-2025 Platelets LM Ql (Bld) SLT DEC ADEQ [facility] Potassium measurement (mass/ volume)Ordered By: Rick Carlin on 02-27-2025 Potassium (Unsp spec) [Mass/Vol] 3.2 mmol/L Low 3.3-5.1 [facility] RBC Auto (Bld) [#/Vol]Ordere d By: Rick Carlin on 02-27-2025 RBC (Bld) [#/Vol] 2.68 10*6/uL Low 4.6-6.2 [facility] Serum creatinine measurement (mass/volume)Ordered By: Rick Carlin on 02-27-2025 Creatinine [Mass/Vol] 1.14 mg/dL 0.70-1.20 [facility] Serum globulin measurementOr dered By: Rick Carlin on 02-27-2025 Globulin (S) [Mass/Vol] 3.3 g/dL 2.2-4.2 [facility] Serum glucose measurement (m ass/volume)Ordered By: Rick Carlin on 02-27-2025 Glucose [Mass/Vol] 272 mg/dL High 70-99 [facility] Serum or plasma alanine thomas otransferase (ALT) measurementOrdered By: Rick Carlin on 02-27-2025 ALT [Catalytic activity/Vol] 43 U/L <47 [facility] Serum or plasma albumin roosevelt urement (mass/volume)Ordered By: Rick Carlin on 02-27-2025 Albumin [Mass/Vol] 2.2 g/dL Low 3.5-5.0 [facility] Serum or plasma albumin/glob ulin mass ratioOrdered By: Rick Carlin on 02-27-2025 Albumin/Globulin [Mass ratio] 0.7 {ratio} Low 0.9-2.4 [facility] Serum or plasma alkaline kendrick sphatase measurementOrdered By: Rick Carlin on 02-27-2025 ALP [Catalytic activity/Vol] 244 U/L High 40-129 [facility] Serum or plasma calcium roosevelt urement (mass/volume)Ordered By: Rick Carlin on 02-27-2025 Calcium [Mass/Vol] 8.0 mg/dL 7.6-11.0 [facility] Serum or plasma urea nitroge n measurement (mass/volume)Ordered By: Rick Carlin on 02-27-2025 Urea nitrogen [Mass/Vol] 15 mg/dL 4-19 [facility] Sodium levelOrdered By: Rick Carlin on 02-27-2025 Sodium [Moles/Vol] 131 mmol/L Low 133-145 [facility] Total proteinOrdered By: Meredith Carlin on 02-27-2025 Protein [Mass/Vol] 5.5 g/dL Low 5.9-8.4 [facility] White blood cell (WBC) count Ordered By: Rick Carlin on 02-27-2025 WBC (Bld) [#/Vol] 8.2 10*3/uL 4.4-11.0 [facility] Bedside Glucoseon 02-26-2025 FINGERSTICK GLU 323 mg/dL High 74-106 [facility] Comment on above: Result Comment: BRISA MOROCHO OF PATIENT CARE PER NURSING PROTOCOL Performed By: #### L 501.080 ####[facility] [address] [place], [address] FINGERSTICK GLU 359 mg/dL High 74-106 [facility] Comment on above: Result Comment: BRISA GEMENT OF PATIENT CARE PER NURSING PROTOCOL Performed By: #### L 501.080 ####[facility] [address] [place], [address] FINGERSTICK GLU 344 mg/dL High 74-106 [facility] Comment on above: Result Comment: BRISA GEMENT OF PATIENT CARE PER NURSING PROTOCOL Performed By: #### L 501.080 ####[facility] [address] [place], [address] FINGERSTICK GLU 267 mg/dL High 74-106 [facility] Comment on above: Result Comment: BRISA GEMENT OF PATIENT CARE PER NURSING PROTOCOL Performed By: #### L 501.080 ####[facility] [address] [place], [address] Body Fluid Culton 02-26-2025 BFC Culture exhibits no growth. Normal [facility] Comment on above: Performed By: #### M 100.2900, M100.4001, M100.2000, L200.0200, L400.0001 ####[facility] [address] [place], [address] CBC W/Diff, Automatedon 07- Anisocytosis Ql (Bld) 2+ Normal [facility] Comment on above: Performed By: #### L 100.0100, L500.4050 ####[facility] [address] [place], [address] SMEAR COMMENT SCANNED Normal [facility] Comment on above: Performed By: #### L 100.0100, L500.4050 ####[facility] [address] [place], [address] Comprehensive Metabolic Prof ilon 02-26-2025 Albumin [Mass/Vol] 2.4 g/dL Low 3.5-5.0 [facility] Comment on above: Performed By: #### L 100.0100, L500.4050 ####[facility] [address] [place], [address] Albumin/Globulin [Mass ratio] 0.7 {ratio} Low 0.9-2.4 [facility] Comment on above: Performed By: #### L 100.0100, L500.4050 ####[facility] [address] [place], [address] ALK PHOS 258 U/L High 40-129 [facility] Comment on above: Performed By: #### L 100.0100, L500.4050 ####[facility] [address] [place], [address] ALT [Catalytic activity/Vol] 50 U/L High <=46 [facility] Comment on above: Performed By: #### L 100.0100, L500.4050 ####[facility] [address] [place], [address] AST [Catalytic activity/Vol] 78 U/L High <=37 [facility] Comment on above: Performed By: #### L 100.0100, L500.4050 ####[facility] [address] [place], [address] Bilirubin [Mass/Vol] 5.33 mg/dL High 0.00-1.30 [facility] Comment on above: Performed By: #### L 100.0100, L500.4050 ####[facility] [address] [place], [address] BUN/CRE 12.9 RATIO Normal 10-20 [facility] Health Comment on above: Performed By: #### L 100.0100, L500.4050 ####[facility] [address] [place], [address] Calcium [Mass/Vol] 8.3 mg/dL Normal 7.6-11.0 [facility] Comment on above: Performed By: #### L 100.0100, L500.4050 ####[facility] [address] [place], [address] Chloride [Moles/Vol] 102 mmol/L Normal 98-108 [facility] Comment on above: Performed By: #### L 100.0100, L500.4050 ####[facility] [address] [place], [address] CO2 [Moles/Vol] 19.6 mmol/L Low 21.0-32.0 [facility] Comment on above: Performed By: #### L 100.0100, L500.4050 ####[facility] [address] [place], [address] Creatinine [Mass/Vol] 1.03 mg/dL Normal 0.70-1.20 [facility] Comment on above: Result Comment: Icte daquan present, Results may be affected. Performed By: #### L 100.0100, L500.4050 ####[facility] [address] [place], [address] ECRCL 86.83 ml/min Normal 50-250 [facility] Comment on above: Performed By: #### L 100.0100, L500.4050 ####[facility] [address] [place], [address] GAP 12 Normal 5-15 [facility] Comment on above: Performed By: #### L 100.0100, L500.4050 ####[facility] [address] [place], [address] GFR/1.73 sq M.predicted among non-blacks MDRD (S/P/Bld) [Vol rate/Area] 84 mL/min/{1.73_m2} Normal >60 [facility] Comment on above: Result Comment: mL/m in/1.73m2 CKD-EPI Creatinine Equation (2020) Performed By: #### L 100.0100, L500.4050 ####[facility] [address] [place], [address] Globulin (S) [Mass/Vol] 3.6 g/dL Normal 2.2-4.2 [facility] Comment on above: Performed By: #### L 100.0100, L500.4050 ####[facility] [address] [place], [address] Glucose [Mass/Vol] 269 mg/dL High 70-99 [facility] Comment on above: Performed By: #### L 100.0100, L500.4050 ####[facility] [address] [place], [address] Potassium [Moles/Vol] 3.0 mmol/L Low 3.3-5.1 [facility] Comment on above: Performed By: #### L 100.0100, L500.4050 ####[facility] [address] [place], [address] Sodium [Moles/Vol] 133 mmol/L Normal 133-145 [facility] Comment on above: Performed By: #### L 100.0100, L500.4050 ####[facility] [address] [place], [address] T PROT 6.0 g/dL Normal 5.9-8.4 [facility] Comment on above: Performed By: #### L 100.0100, L500.4050 ####[facility] [address] [place], [address] Urea nitrogen [Mass/Vol] 13 mg/dL Normal 4-19 [facility] Comment on above: Performed By: #### L 100.0100, L500.4050 ####[facility] [address] [place], [address] Gram Stainon 02-26-2025 GS Centrifuged Specimen ? Culture performed on centrifuged specimen Gram Stain No organisms seen Rare White Blood Cells Normal [facility] Comment on above: Performed By: #### M 100.2900, M100.4001, M100.2000, L200.0200, L400.0001 ####[facility] [address] [place], [address] Prothrombin Time w/INRon INR Coag (PPP) [Relative time] 2.1 {INR} Normal [facility] Comment on above: Order Comment: Comme nts: Add onto previous labs if possible Performed By: #### L 300.3900 ####[facility] [address] [place], [address] PT Coag (PPP) [Time] 23.7 s High 11.7-14.9 [facility] Comment on above: Order Comment: Comme nts: Add onto previous labs if possible Performed By: #### L 300.3900 ####[facility] [address] [place], [address] Prothrombin timeOrdered By: Kathie Powers on 02-26-2025 PT Coag (PPP) [Time] 23.7 s High 11.7-14.9 [facility] Ammoniaon 02-25-2025 Ammonia (P) [Moles/Vol] 127.0 umol/L High 16-60 [facility] Comment on above: Performed By: #### L 500.4050, L503.5510, L100.0100, L501.2450 ####[facility] [address] [place], [address] Anaerobic cultureOrdered By: Herberth Carlson on 02-25-2025 Bacteria identified Anaer cx Nom (Unsp spec) No growth in 5 days. [facility] Bedside Glucoseon 02-25-2025 FINGERSTICK GLU 271 mg/dL High 74-106 [facility] Comment on above: Result Comment: BRISA MOROCHO OF PATIENT CARE PER NURSING PROTOCOL Performed By: #### L 501.080 ####[facility] [address] [place], [place], [address] FINGERSTICK GLU 192 mg/dL High 74-106 [facility] Comment on above: Result Comment: BRISA MOROCHO OF PATIENT CARE PER NURSING PROTOCOL Performed By: #### L 501.080 ####[facility] [address] [place], [address] Bilirubin Test strip Ql (U)O rdered By: Herberth Carlson on 02-25-2025 Bilirubin Ql (U) 3 mg/dL High Negative [facility] Body fluid appearance (nomin al result)Ordered By: Herberth Carlson on 02-25-2025 Appearance (Body fld) SL CLDY [facility] Body fluid color determinati onOrdered By: Herberth aCrlson on 02-25-2025 Color (Body fld) YELLOW [facility] Body fluid cultureOrdered By : Herberth Carlson on 02-25-2025 Microbial culture, body fluid Culture exhibits no growth. [facility] Body fluid leukocytes count (number/volume)Ordered By: Herberth Carlson on 02-25-2025 WBC (Body fld) [#/Vol] 0.153 10*3/uL [facility] Body fluid lymphocytes/100 l eukocytesOrdered By: Herberth Carlson on 02-25-2025 Lymphocytes/100 WBC (Body fld) 6 % [facility] Body fluid macrophage countO rdered By: Herberth Carlson on 02-25-2025 Macrophages (Body fld) [#/Vol] 75 % [facility] Body fluid mesothelial cell percentageOrdered By: Herberth Carlosn on 02-25-2025 Mesothelial cells/100 WBC (Body fld) 10 % [facility] Body fluid mononuclear cell percentageOrdered By: Herberth Carlson on 02-25-2025 Mononuclear cells/100 WBC (Body fld) 90.1 % [facility] Body fluid segmented neutrop hils count (number/volume)Ordered By: Herberth Carlson on 02-25-2025 Segmented neutrophils (Body fld) [#/Vol] 4 % [facility] Body fluid total cell countO rdered By: Herberth Carlson on 02-25-2025 Cells Counted Total (Body fld) [#] 0.207 10^3/ul [facility] Ql (Bld) 1+ Normal [facility] Comment on above: Performed By: #### L 500.4050, L503.5510, L100.0100, L501.2450 ####[facility] [address] [place], [address] Comprehensive Metabolic Prof alon 02-25-2025 Albumin [Mass/Vol] 2.0 g/dL Low 3.5-5.0 [facility] Comment on above: Performed By: #### L 500.4050, L503.5510, L100.0100, L501.2450 ####[facility] [address] [place], [address] Albumin/Globulin [Mass ratio] 0.5 {ratio} Low 0.9-2.4 [facility] Comment on above: Performed By: #### L 500.4050, L503.5510, L100.0100, L501.2450 ####[facility] [address] [place], [address] ALK PHOS 249 U/L High 40-129 [facility] Comment on above: Performed By: #### L 500.4050, L503.5510, L100.0100, L501.2450 ####[facility] [address] [place], [address] ALT [Catalytic activity/Vol] 51 U/L High <=46 [facility] Comment on above: Result Comment: Hemo lysis present, Results??could be affected.?? Performed By: #### L 500.4050, L503.5510, L100.0100, L501.2450 ####[facility] [address] [place], [address] AST [Catalytic activity/Vol] 97 U/L High <=37 [facility] Comment on above: Result Comment: Hemo lysis present, Results??could be affected.?? Performed By: #### L 500.4050, L503.5510, L100.0100, L501.2450 ####[facility] [address] [place], [address] Bilirubin [Mass/Vol] 4.99 mg/dL High 0.00-1.30 [facility] Comment on above: Performed By: #### L 500.4050, L503.5510, L100.0100, L501.2450 ####[facility] [address] [place], [address] BUN/CRE 8.9 RATIO Low 10-20 [facility] Comment on above: Performed By: #### L 500.4050, L503.5510, L100.0100, L501.2450 ####[facility] [address] [place], [address] Calcium [Mass/Vol] 8.1 mg/dL Normal 7.6-11.0 [facility] Comment on above: Performed By: #### L 500.4050, L503.5510, L100.0100, L501.2450 ####[facility] [address] [place], [address] Chloride [Moles/Vol] 102 mmol/L Normal 98-108 [facility] Comment on above: Performed By: #### L 500.4050, L503.5510, L100.0100, L501.2450 ####[facility] [address] [place], [address] CO2 [Moles/Vol] 17.5 mmol/L Low 21.0-32.0 [facility] Comment on above: Performed By: #### L 500.4050, L503.5510, L100.0100, L501.2450 ####[facility] [address] [place], [address] Creatinine [Mass/Vol] 1.07 mg/dL Normal 0.70-1.20 [facility] Comment on above: Result Comment: Icte daquan present, Results may be affected. Performed By: #### L 500.4050, L503.5510, L100.0100, L501.2450 ####[facility] [address] [place], [address] ECRCL 86.96 ml/min Normal 50-250 [facility] Comment on above: Performed By: #### L 500.4050, L503.5510, L100.0100, L501.2450 ####[facility] [address] [place], [address] GAP 12 Normal 5-15 [facility] Comment on above: Performed By: #### L 500.4050, L503.5510, L100.0100, L501.2450 ####[facility] [address] [place], [address] GFR/1.73 sq M.predicted among non-blacks MDRD (S/P/Bld) [Vol rate/Area] 80 mL/min/{1.73_m2} Normal >60 [facility] Comment on above: Result Comment: mL/m in/1.73m2 CKD-EPI Creatinine Equation (2020) Performed By: #### L 500.4050, L503.5510, L100.0100, L501.2450 ####[facility] [address] [place], [address] Globulin (S) [Mass/Vol] 3.9 g/dL Normal 2.2-4.2 [facility] Comment on above: Performed By: #### L 500.4050, L503.5510, L100.0100, L501.2450 ####[facility] [address] [place], [address] Glucose [Mass/Vol] 225 mg/dL High 70-99 [facility] Comment on above: Performed By: #### L 500.4050, L503.5510, L100.0100, L501.2450 ####[facility] [address] [place], [address] Potassium [Moles/Vol] 3.7 mmol/L Normal 3.3-5.1 [facility] Comment on above: Result Comment: Hemo lysis present, Results??could be affected.?? Performed By: #### L 500.4050, L503.5510, L100.0100, L501.2450 ####[facility] [address] [place], [address] Sodium [Moles/Vol] 131 mmol/L Low 133-145 [facility] Comment on above: Performed By: #### L 500.4050, L503.5510, L100.0100, L501.2450 ####[facility] [address] [place], [address] T PROT 5.9 g/dL Normal 5.9-8.4 [facility] Comment on above: Performed By: #### L 500.4050, L503.5510, L100.0100, L501.2450 ####[facility] [address] [place], [address] Urea nitrogen [Mass/Vol] 10 mg/dL Normal 4-19 [facility] Comment on above: Performed By: #### L 500.4050, L503.5510, L100.0100, L501.2450 ####[facility] [address] [place], [address] Emergency Department Summary on 02-25-2025 Emergency Department Summary Normal [facility] Gram stainOrdered By: Lopez Carlson on 02-25-2025 Microscopic observation Gram stain Nom (Unsp spec) [facility] H AND P Exam - Hospitaliston 02-25-2025 H&P Exam - Hospitalist Normal [facility] Ketones Test strip Ql (U)Ord ered By: Herberth Carlson on 02-25-2025 Ketones Ql (U) 5 mg/dl High Negative [facility] Lipaseon 02-25-2025 Lipase [Catalytic activity/Vol] 64 U/L Normal 13-75 [facility] Comment on above: Result Comment: Siddhartha bhat note:LIPASE revised reference range effective 22.New Lipase methodology. Expected to produce lower valuesthan the previous assay method.NEW Reference Range: 13 - 75 U/L Performed By: #### L 500.4050, L503.5510, L100.0100, L501.2450 ####[facility] [address] [place], [address] MR/CON.PCM.GIon 02-25-2025 MR/CON.PCM.GI Normal [facility] Monocyte detectionOrdered By : Herberth Carlson on 02-25-2025 Monocytes/100 WBC (Bld) 5 % [facility] Mucus LM Ql (Urine sed)Order ed By: Herberth Carlson on 02-25-2025 Mucus Ql (Urine sed) 0 SEEN /hpf [facility] Nitrite Test strip Ql (U)Ord ered By: Herberth Carlson on 02-25-2025 Nitrite Ql (U) Negative Negative [facility] No Panel InformationOrdered By: Herberth Carlson on 02-25-2025 283 /mm3 [facility] SEE COMMENT [facility] Pathologist interpretation o f Body fluid testsOrdered By: Herberth Carlson on 02-25-2025 Pathologist interpretation (Body fld) [Interp] Reviewed [facility] Protein Test strip Ql (U)Ord ered By: Herberth Carlson on 02-25-2025 Protein Ql (U) 100 mg/dl High Negative [facility] Specimen source identificati on of body fluidOrdered By: Herberth Carlson on 02-25-2025 Specimen source Nom (Body fld) ASCITES FLUID [facility] Squamous epithelial cells de tection in urine sediment by light microscopyOrdered By: Herberth Carlson on 02-25-2025 Epithelial cells.squamous LM Ql (Urine sed) 0 SEEN /hpf 0-5 [facility] Urinalysis, Completeon 02-25 RBC > 100 SEEN Normal 0-5 [facility] Comment on above: Order Comment: COLOR OF URINE MAY AFFECT DIPSTICK RESULTS.CLEAN CATCH Result Comment: Micr oscopic field is filled. Other elements may beobscured. Performed By: #### M 100.2900, M100.4001, M100.1999, L200.0200, L400.0001 ####[facility] [address] [place], [address] WBC >100 SEEN Normal 0-5 [facility] Comment on above: Order Comment: COLOR OF URINE MAY AFFECT DIPSTICK RESULTS.CLEAN CATCH Result Comment: Micr oscopic field is filled. Other elements may beobscured. Performed By: #### M 100.2900, M100.4001, M100.1999, L200.0200, L400.0001 ####[facility] [address] [place], [address] YEAST 2+ /hpf Normal None Seen [facility] Comment on above: Order Comment: COLOR OF URINE MAY AFFECT DIPSTICK RESULTS.CLEAN CATCH Performed By: #### M 100.2900, M100.4001, M100.1999, L200.0200, L400.0001 ####[facility] [address] [place], [address] BACTERIA 0 SEEN Normal None Seen [facility] Comment on above: Order Comment: COLOR OF URINE MAY AFFECT DIPSTICK RESULTS.CLEAN CATCH Performed By: #### M 100.2900, M100.4001, M100.1999, L200.0200, L400.0001 ####[facility] [address] [place], [address] EPI,SQUAMOUS 0 SEEN Normal 0-5 [facility] Comment on above: Order Comment: COLOR OF URINE MAY AFFECT DIPSTICK RESULTS.CLEAN CATCH Performed By: #### M 100.2900, M100.4001, M100.2000, L200.0200, L400.0001 ####[facility] [address] [place], [address] Mucus Ql (Urine sed) 0 SEEN Normal [facility] Comment on above: Order Comment: COLOR OF URINE MAY AFFECT DIPSTICK RESULTS.CLEAN CATCH Performed By: #### M 100.2900, M100.4001, M100.2000, L200.0200, L400.0001 ####[facility] [address] [place], [address] Urine clarityOrdered By: Digna Carlson on 02-25-2025 Clarity (U) Cloudy Clear [facility] Urine color determinationOrd ered By: Herberth Carlson on 02-25-2025 Color (U) Red Yellow [facility] Urine glucose detectionOrder ed By: Herberth Carlson on 02-25-2025 Glucose Ql (U) 100 mg/dl High Normal [facility] Urine leukocyte esterase det ection by dipstickOrdered By: Herberth Carlson on 02-25-2025 Leukocyte esterase Test strip Ql (U) 500 /ul High Negative [facility] Urine pHOrdered By: Herberth Carlson on 02-25-2025 pH (U) 6.5 [pH] 5.0 - 8.0 [facility] Urine sediment bacteria coun t by microscopy (number/high power field)Ordered By: Herberth Carlson on 02-25-2025 Bacteria LM.HPF (Urine sed) [#/Area] 0 /[HPF] None Seen [facility] Urine sediment yeast count b y microscopy (number/high powered field)Ordered By: Herberth Carlson on 02-25-2025 Yeast LM.HPF (Urine sed) [#/Area] 2 /[HPF] None Seen [facility] Urine specific gravity measu rementOrdered By: Herberth Carlson on 02-25-2025 Specific gravity (U) [Rel density] 1.015 1.002-1.030 [facility] Urine urobilinogen measureme ntOrdered By: Herberth Carlson on 02-25-2025 Urobilinogen Ql (U) Normal mg/dl Normal [facility] Venous blood ammonia measure mentOrdered By: Herberth Carlson on 02-25-2025 Ammonia (P) [Moles/Vol] 127.0 umol/L High 16-60 [facility] White blood cell countOrdere d By: Herberth Carlson on 02-25-2025 White blood cell count >100 SEEN /hpf 0-5 [facility] Hepatitis Panel Acuteon 02-01 COMMENT Comment Normal . [facility] Comment on above: Result Comment: Not infected with HCV unless early or acute infection issuspected (which may be delayed in an immunocompromisedindividual), or other evidence exists to indicate HCVinfection.Performed at: [facility] [id number] Director: Buck Ivy PhD, Phone: [phone] Performed By: #### L 100.0100, L500.4050, L3000.0375, L503.5510 ####[facility] [address] [place], [address] HEP B CORE,IgM Negative Normal Negative [facility] Comment on above: Performed By: #### L 100.0100, L500.4050, L3000.0375, L503.5510 ####[facility] [address] [place], [address] HEP B SURF AG Negative Normal Negative [facility] Comment on above: Performed By: #### L 100.0100, L500.4050, L3000.0375, L503.5510 ####[facility] [address] [place], [address] HEP C VIRUS AB Non-Reactive Normal Non Reactive [facility] Comment on above: Performed By: #### L 100.0100, L500.4050, L3000.0375, L503.5510 ####[facility] [address] [place], [address] HEPATITIS A-IgM Negative Normal Negative [facility] Comment on above: Result Comment: A ne gative anti-HAV IgM result suggests no recent orcurrent HAV infection. Performed By: #### L 100.0100, L500.4050, L3000.0375, L503.5510 ####[facility] [address] [place], [place], [id number] Anion gap in Serum or Plasma Ordered By: Jae Ash on 02-17-2025 Anion gap [Moles/Vol] 10 mmol/L 5-15 [facility] BUN/creatinine ratioOrdered By: Jae Ash on 02-17-2025 Urea nitrogen/Creatinine [Mass ratio] 9.7 mg/mg Low 10-20 [facility] Bedside Glucoseon 02-17-2025 FINGERSTICK GLU 194 mg/dL High 74-106 [facility] Comment on above: Result Comment: BRISA MOROCHO OF PATIENT CARE PER NURSING PROTOCOL Performed By: #### L 501.080 ####[facility] [address] [place], [place], [id number] Bilirubin, totalOrdered By: Jae Ash on 02-17-2025 Bilirubin [Mass/Vol] 6.79 mg/dL High 0.00-1.30 [facility] Blood manual differential co mment interpretation (narrative result)Ordered By: Jae Ash on 02-17-2025 Manual differential comment Marco Antonio (Bld) [Interp] SCANNED [facility] CBC-Complete Blood Cnt No Di ffon 02-17-2025 Erythrocyte distribution width (RBC) [Ratio] 19.0 % High 11.6-14.6 [facility] Comment on above: Performed By: #### L 500.4050, L100.4500, L300.3900, L100.0500 ####[facility] [address] [place], [address] Hematocrit (Bld) [Volume fraction] 21.9 % Low 40-54 [facility] Comment on above: Performed By: #### L 500.4050, L100.4500, L300.3900, L100.0500 ####[facility] [address] [place], [address] Hemoglobin (Bld) [Mass/Vol] 7.7 g/dL Low 13.0-16.5 [facility] Comment on above: Performed By: #### L 500.4050, L100.4500, L300.3900, L100.0500 ####[facility] [address] [place], [address] MCH (RBC) [Entitic mass] 30.0 pg Normal 27.0-32.0 [facility] Comment on above: Performed By: #### L 500.4050, L100.4500, L300.3900, L100.0500 ####[facility] [address] [place], [address] MCHC (RBC) [Mass/Vol] 35.2 g/dL Normal 32-36 [facility] Comment on above: Performed By: #### L 500.4050, L100.4500, L300.3900, L100.0500 ####[facility] [address] [place], [address] MCV (RBC) [Entitic vol] 85.2 fL Normal 80-94 [facility] Comment on above: Performed By: #### L 500.4050, L100.4500, L300.3900, L100.0500 ####[facility] [address] [place], [address] Platelet mean volume (Bld) [Entitic vol] 11.7 fL Normal 6.2-12.0 [facility] Comment on above: Performed By: #### L 500.4050, L100.4500, L300.3900, L100.0500 ####[facility] [address] [place], [address] Platelets (Bld) [#/Vol] 90 10*3/uL Low 150-450 [facility] Comment on above: Performed By: #### L 500.4050, L100.4500, L300.3900, L100.0500 ####[facility] [address] [place], [address] RBC (Bld) [#/Vol] 2.57 10*6/uL Low 4.6-6.2 [facility] Comment on above: Performed By: #### L 500.4050, L100.4500, L300.3900, L100.0500 ####[facility] [address] [place], [address] RDW SD 51.1 fl High 35.1-43.9 [facility] Comment on above: Performed By: #### L 500.4050, L100.4500, L300.3900, L100.0500 ####[facility] [address] [place], [address] WBC (Bld) [#/Vol] 8.5 10*3/uL Normal 4.4-11.0 [facility] Comment on above: Performed By: #### L 500.4050, L100.4500, L300.3900, L100.0500 ####[facility] [address] [place], [address] Carbon dioxide, total [Moles /volume] in Central venous bloodOrdered By: Jae Ash on 02-17-2025 CO2 [Moles/Vol] 22.1 mmol/L 21.0-32.0 [facility] Chloride assayOrdered By: Sky Ash on 02-17-2025 Chloride [Moles/Vol] 100 mmol/L 98-108 [facility] Comprehensive Metabolic Prof ilon 02-17-2025 Albumin [Mass/Vol] 2.1 g/dL Low 3.5-5.0 [facility] Comment on above: Performed By: #### L 500.4050, L100.4500, L300.3900, L100.0500 ####[facility] [address] [place], [address] Albumin/Globulin [Mass ratio] 0.7 {ratio} Low 0.9-2.4 [facility] Comment on above: Performed By: #### L 500.4050, L100.4500, L300.3900, L100.0500 ####[facility] [address] [place], [address] ALK PHOS 278 U/L High 40-129 [facility] Comment on above: Performed By: #### L 500.4050, L100.4500, L300.3900, L100.0500 ####[facility] [address] [place], [address] ALT [Catalytic activity/Vol] 46 U/L Normal <=46 [facility] Comment on above: Performed By: #### L 500.4050, L100.4500, L300.3900, L100.0500 ####[facility] [address] [place], [address] AST [Catalytic activity/Vol] 99 U/L High <=37 [facility] Comment on above: Result Comment: Hemo lysis present, Results??could be affected.?? Performed By: #### L 500.4050, L100.4500, L300.3900, L100.0500 ####[facility] [address] [place], [address] Bilirubin [Mass/Vol] 6.79 mg/dL High 0.00-1.30 [facility] Comment on above: Performed By: #### L 500.4050, L100.4500, L300.3900, L100.0500 ####[facility] [address] [place], [address] BUN/CRE 9.7 RATIO Low 10-20 [facility] Comment on above: Performed By: #### L 500.4050, L100.4500, L300.3900, L100.0500 ####[facility] [address] [place], [address] Calcium [Mass/Vol] 7.3 mg/dL Low 7.6-11.0 [facility] Comment on above: Performed By: #### L 500.4050, L100.4500, L300.3900, L100.0500 ####[facility] [address] [place], [address] Chloride [Moles/Vol] 100 mmol/L Normal 98-108 [facility] Comment on above: Performed By: #### L 500.4050, L100.4500, L300.3900, L100.0500 ####[facility] [address] [place], [address] CO2 [Moles/Vol] 22.1 mmol/L Normal 21.0-32.0 [facility] Comment on above: Performed By: #### L 500.4050, L100.4500, L300.3900, L100.0500 ####[facility] [address] [place], [address] Creatinine [Mass/Vol] 1.16 mg/dL Normal 0.70-1.20 [facility] Comment on above: Result Comment: Icte daquan present, Results may be affected. Performed By: #### L 500.4050, L100.4500, L300.3900, L100.0500 ####[facility] [address] [place], [address] ECRCL 79.19 ml/min Normal 50-250 [facility] Comment on above: Performed By: #### L 500.4050, L100.4500, L300.3900, L100.0500 ####[facility] [address] [place], [address] GAP 10 Normal 5-15 [facility] Comment on above: Performed By: #### L 500.4050, L100.4500, L300.3900, L100.0500 ####[facility] [address] [place], [address] GFR/1.73 sq M.predicted among non-blacks MDRD (S/P/Bld) [Vol rate/Area] 73 mL/min/{1.73_m2} Normal >60 [facility] Comment on above: Result Comment: mL/m in/1.73m2 CKD-EPI Creatinine Equation (2020) Performed By: #### L 500.4050, L100.4500, L300.3900, L100.0500 ####[facility] [address] [place], [address] Globulin (S) [Mass/Vol] 3.2 g/dL Normal 2.2-4.2 [facility] Comment on above: Performed By: #### L 500.4050, L100.4500, L300.3900, L100.0500 ####[facility] [address] [place], [address] Glucose [Mass/Vol] 246 mg/dL High 70-99 [facility] Comment on above: Performed By: #### L 500.4050, L100.4500, L300.3900, L100.0500 ####[facility] [address] [place], [address] Potassium [Moles/Vol] 3.6 mmol/L Normal 3.3-5.1 [facility] Comment on above: Result Comment: Hemo lysis present, Results??could be affected.?? Performed By: #### L 500.4050, L100.4500, L300.3900, L100.0500 ####[facility] [address] [place], [address] Sodium [Moles/Vol] 132 mmol/L Low 133-145 [facility] Comment on above: Performed By: #### L 500.4050, L100.4500, L300.3900, L100.0500 ####[facility] [address] [place], [address] T PROT 5.3 g/dL Low 5.9-8.4 [facility] Comment on above: Performed By: #### L 500.4050, L100.4500, L300.3900, L100.0500 ####[facility] [address] [place], [address] Urea nitrogen [Mass/Vol] 11 mg/dL Normal 4-19 [facility] Comment on above: Performed By: #### L 500.4050, L100.4500, L300.3900, L100.0500 ####[facility] [address] [place], [address] Differential Commenton 02-17 SMEAR COMMENT SCANNED Normal [facility] Comment on above: Result Comment: MODE RATE THROMBOCYTOPENIA NOTED Performed By: #### L 500.4050, L100.4500, L300.3900, L100.0500 ####[facility] [address] [place], [address] Discharge Instructionon 02-01 Discharge Instruction Normal [facility] Erythrocyte distribution wid th ratioOrdered By: Jae Ash on 02-17-2025 Erythrocyte distribution width (RBC) [Ratio] 19.0 % High 11.6-14.6 [facility] Erythrocyte distribution wid th standard deviationOrdered By: Jae Ash on 02-17-2025 Erythrocyte distribution width (RBC) [Ratio] 51.1 fl High 35.1-43.9 [facility] Glomerular filtration rate ( GFR) estimation/1.73 sq m using serum, plasma, or whole bOrdered By: Jae Ash on 02-17-2025 GFR/1.73 sq M.predicted among non-blacks MDRD (S/P/Bld) [Vol rate/Area] 73 mL/min/{1.73_m2} >60 [facility] deOrdered By: Anurag Irene on 02-17-2025 Glucose [Mass/Vol] 194 mg/dL High 74-106 [facility] Hematocrit Auto (Bld) [Volum e fraction]Ordered By: Jae Ash on 02-17-2025 Hematocrit (Bld) [Volume fraction] 21.9 % Low 40-54 [facility] Hemoglobin measurementOrdere d By: Jae Ash on 02-17-2025 Hemoglobin (Bld) [Mass/Vol] 7.7 g/dL Low 13.0-16.5 [facility] MCV (mean corpuscular volume ) determinationOrdered By: Jae Ash on 02-17-2025 MCV (RBC) [Entitic vol] 85.2 fL 80-94 [facility] MR/CON.PCM.GIon 02-17-2025 MR/CON.PCM.GI Normal [facility] Mean corpuscular hemoglobin (MCH) determinationOrdered By: Jae Ash on 02-17-2025 MCH (RBC) [Entitic mass] 30.0 pg 27.0-32.0 [facility] No Panel InformationOrdered By: Jae Ash on 02-17-2025 99 U/L High <38 [facility] Platelet countOrdered By: Sky Ash on 02-17-2025 Platelets (Bld) [#/Vol] 90 10*3/uL Low 150-450 [facility] Potassium measurement (mass/ volume)Ordered By: Jae Ash on 02-17-2025 Potassium (Unsp spec) [Mass/Vol] 3.6 mmol/L 3.3-5.1 [facility] Prothrombin Time w/INRon INR Coag (PPP) [Relative time] 2.0 {INR} Normal [facility] Comment on above: Performed By: #### L 500.4050, L100.4500, L300.3900, L100.0500 ####[facility] [address] [place], [place], [id number] PT Coag (PPP) [Time] 22.8 s High 11.7-14.9 [facility] Comment on above: Performed By: #### L 500.4050, L100.4500, L300.3900, L100.0500 ####[facility] [address] [place], [place], [id number] Prothrombin timeOrdered By: Jae Ash on 02-17-2025 PT Coag (PPP) [Time] 22.8 s High 11.7-14.9 [facility] RBC Auto (Bld) [#/Vol]Ordere d By: Jae Ash on 02-17-2025 RBC (Bld) [#/Vol] 2.57 10*6/uL Low 4.6-6.2 [facility] Serum creatinine measurement (mass/volume)Ordered By: Jae Ash on 02-17-2025 Creatinine [Mass/Vol] 1.16 mg/dL 0.70-1.20 [facility] Serum globulin measurementOr dered By: Jae Ash on 02-17-2025 Globulin (S) [Mass/Vol] 3.2 g/dL 2.2-4.2 [facility] Serum glucose measurement (m ass/volume)Ordered By: Jae Ash on 02-17-2025 Glucose [Mass/Vol] 246 mg/dL High 70-99 [facility] Serum or plasma alanine thomas otransferase (ALT) measurementOrdered By: Jae Ash on 02-17-2025 ALT [Catalytic activity/Vol] 46 U/L <47 [facility] Serum or plasma albumin roosevelt urement (mass/volume)Ordered By: Jae Ash on 02-17-2025 Albumin [Mass/Vol] 2.1 g/dL Low 3.5-5.0 [facility] Serum or plasma albumin/glob ulin mass ratioOrdered By: Jae Ash on 02-17-2025 Albumin/Globulin [Mass ratio] 0.7 {ratio} Low 0.9-2.4 [facility] Serum or plasma alkaline kendrick sphatase measurementOrdered By: Jae Ash on 02-17-2025 ALP [Catalytic activity/Vol] 278 U/L High 40-129 [facility] Serum or plasma calcium roosevelt urement (mass/volume)Ordered By: Jae Ash on 02-17-2025 Calcium [Mass/Vol] 7.3 mg/dL Low 7.6-11.0 [facility] Serum or plasma urea nitroge n measurement (mass/volume)Ordered By: Jae Ash on 02-17-2025 Urea nitrogen [Mass/Vol] 11 mg/dL 4-19 [facility] Sodium levelOrdered By: Pasha Ash on 02-17-2025 Sodium [Moles/Vol] 132 mmol/L Low 133-145 [facility] Total proteinOrdered By: Diane Ash on 02-17-2025 Protein [Mass/Vol] 5.3 g/dL Low 5.9-8.4 [facility] White blood cell (WBC) count Ordered By: Jae Ash on 02-17-2025 WBC (Bld) [#/Vol] 8.5 10*3/uL 4.4-11.0 [facility] Absolute lymphocyte countOrd ered By: Jerald Sherwood on 02-16-2025 Lymphocytes Auto (Unsp spec) [#/Vol] 1.28 10*3/uL 0.83-4.51 [facility] Anion gap in Serum or Plasma Ordered By: Jerald Sherwood on 02-16-2025 Anion gap [Moles/Vol] 12 mmol/L 5-15 [facility] Automated lymphocyte count a s percentage of total leukocytesOrdered By: Jerald Sherwood on 02-16-2025 Lymphocytes/100 WBC Auto (Unsp spec) 15.1 % Low 19-41 [facility] BUN/creatinine ratioOrdered By: Jerald Sherwood on 02-16-2025 Urea nitrogen/Creatinine [Mass ratio] 9.4 mg/mg Low 10-20 [facility] Basophil percentageOrdered B y: Jerald Sherwood on 02-16-2025 Basophils/100 WBC (Bld) 0.5 % 0-1 [facility] Bedside Glucoseon 02-16-2025 FINGERSTICK GLU 216 mg/dL High 74-106 [facility] Comment on above: Result Comment: BRISA MOROCHO OF PATIENT CARE PER NURSING PROTOCOL Performed By: #### L 501.080 ####[facility] [address] [place], [address] Bilirubin directOrdered By: Jae Ash on 02-16-2025 Bilirubin.direct [Mass/Vol] 5.10 mg/dL High 0.00-0.30 [facility] Bilirubin, Directon 02-17-20 25 Bilirubin.direct [Mass/Vol] 5.10 mg/dL High 0.00-0.30 [facility] Comment on above: Performed By: #### L 504.2610, L501.4700 ####[facility] [address] [place], [address] Bilirubin, totalOrdered By: Jerald Sherwood on 02-16-2025 Bilirubin [Mass/Vol] 7.29 mg/dL High 0.00-1.30 [facility] CBC W/Diff, Automatedon 02-01 Absolute Lymph 1.28 X10 3/uL Normal 0.83-4.51 [facility] Comment on above: Performed By: #### L 100.0100, L500.4050, L3000.0375, L503.5510 ####[facility] [address] [place], [address] Absolute Neut 5.7 X10 3/uL Normal 2.0-7.7 [facility] Comment on above: Performed By: #### L 100.0100, L500.4050, L3000.0375, L503.5510 ####[facility] [address] [place], [address] Basophils/100 WBC (Bld) 0.5 % Normal 0-1 [facility] Comment on above: Performed By: #### L 100.0100, L500.4050, L3000.0375, L503.5510 ####[facility] [address] [place], [address] Eosinophils/100 WBC (Bld) 5.4 % High 0-5 [facility] Comment on above: Performed By: #### L 100.0100, L500.4050, L3000.0375, L503.5510 ####[facility] [address] [place], [address] Erythrocyte distribution width (RBC) [Ratio] 18.7 % High 11.6-14.6 [facility] Comment on above: Performed By: #### L 100.0100, L500.4050, L3000.0375, L503.5510 ####[facility] [address] [place], [address] Hematocrit (Bld) [Volume fraction] 24.8 % Low 40-54 [facility] Comment on above: Performed By: #### L 100.0100, L500.4050, L3000.0375, L503.5510 ####[facility] [address] [place], [address] Hemoglobin (Bld) [Mass/Vol] 8.2 g/dL Low 13.0-16.5 [facility] Comment on above: Performed By: #### L 100.0100, L500.4050, L3000.0375, L503.5510 ####[facility] [address] [place], [address] IG% 0.200 Normal 0.0-0.9 [facility] Comment on above: Result Comment: IG% - Immature Granulocytes (promyelocytes, myelocytes andmetamyelocytes) > 1% indicates that a LEFT SHIFT is Present. Performed By: #### L 100.0100, L500.4050, L3000.0375, L503.5510 ####[facility] [address] [place], [address] Lymphocytes/100 WBC (Bld) 15.1 % Low 19-41 [facility] Comment on above: Performed By: #### L 100.0100, L500.4050, L3000.0375, L503.5510 ####[facility] [address] [place], [address] MCH (RBC) [Entitic mass] 28.9 pg Normal 27.0-32.0 [facility] Comment on above: Performed By: #### L 100.0100, L500.4050, L3000.0375, L503.5510 ####[facility] [address] [place], [address] MCHC (RBC) [Mass/Vol] 33.1 g/dL Normal 32-36 [facility] Comment on above: Performed By: #### L 100.0100, L500.4050, L3000.0375, L503.5510 ####[facility] [address] [place], [address] MCV (RBC) [Entitic vol] 87.3 fL Normal 80-94 [facility] Comment on above: Performed By: #### L 100.0100, L500.4050, L3000.0375, L503.5510 ####[facility] [address] [place], [address] Monocytes/100 WBC (Bld) 11.7 % High 0-10 [facility] Comment on above: Performed By: #### L 100.0100, L500.4050, L3000.0375, L503.5510 ####[facility] [address] [place], [address] Neutrophils/100 WBC (Bld) 67.1 % Normal 47-70 [facility] Comment on above: Performed By: #### L 100.0100, L500.4050, L3000.0375, L503.5510 ####[facility] [address] [place], [address] Nucleated RBC (Bld) [#/Vol] 0 10*3/uL Normal 0-5 [facility] Comment on above: Performed By: #### L 100.0100, L500.4050, L3000.0375, L503.5510 ####[facility] [address] [place], [address] Platelet mean volume (Bld) [Entitic vol] 12.0 fL Normal 6.2-12.0 [facility] Comment on above: Performed By: #### L 100.0100, L500.4050, L3000.0375, L503.5510 ####[facility] [address] [place], [address] Platelets (Bld) [#/Vol] 106 10*3/uL Low 150-450 [facility] Comment on above: Performed By: #### L 100.0100, L500.4050, L3000.0375, L503.5510 ####[facility] [address] [place], [address] RBC (Bld) [#/Vol] 2.84 10*6/uL Low 4.6-6.2 [facility] Comment on above: Performed By: #### L 100.0100, L500.4050, L3000.0375, L503.5510 ####[facility] [address] [place], [address] RDW SD 53.5 fl High 35.1-43.9 [facility] Comment on above: Performed By: #### L 100.0100, L500.4050, L3000.0375, L503.5510 ####[facility] [address] [place], [address] WBC (Bld) [#/Vol] 8.5 10*3/uL Normal 4.4-11.0 [facility] Comment on above: Performed By: #### L 100.0100, L500.4050, L3000.0375, L503.5510 ####[facility] [address] [place], [address] Carbon dioxide, total [Moles /volume] in Central venous bloodOrdered By: Jerald Sherwood on 02-16-2025 CO2 [Moles/Vol] 24.1 mmol/L 21.0-32.0 [facility] Chloride assayOrdered By: Paulette Sherwood on 02-16-2025 Chloride [Moles/Vol] 99 mmol/L 98-108 [facility] Comprehensive Metabolic Prof ilon 02-16-2025 Albumin [Mass/Vol] 2.3 g/dL Low 3.5-5.0 [facility] Comment on above: Performed By: #### L 100.0100, L500.4050, L3000.0375, L503.5510 ####[facility] [address] [place], [address] Albumin/Globulin [Mass ratio] 0.7 {ratio} Low 0.9-2.4 [facility] Comment on above: Performed By: #### L 100.0100, L500.4050, L3000.0375, L503.5510 ####[facility] [address] [place], [address] ALK PHOS 310 U/L High 40-129 [facility] Comment on above: Performed By: #### L 100.0100, L500.4050, L3000.0375, L503.5510 ####[facility] [address] [place], [address] ALT [Catalytic activity/Vol] 51 U/L High <=46 [facility] Comment on above: Performed By: #### L 100.0100, L500.4050, L3000.0375, L503.5510 ####[facility] [address] [place], [address] AST [Catalytic activity/Vol] 109 U/L High <=37 [facility] Comment on above: Performed By: #### L 100.0100, L500.4050, L3000.0375, L503.5510 ####[facility] [address] [place], [address] Bilirubin [Mass/Vol] 7.29 mg/dL High 0.00-1.30 [facility] Comment on above: Performed By: #### L 100.0100, L500.4050, L3000.0375, L503.5510 ####[facility] [address] [place], [address] BUN/CRE 9.4 RATIO Low 10-20 [facility] Comment on above: Performed By: #### L 100.0100, L500.4050, L3000.0375, L503.5510 ####[facility] [address] [place], [address] Calcium [Mass/Vol] 7.8 mg/dL Normal 7.6-11.0 [facility] Comment on above: Performed By: #### L 100.0100, L500.4050, L3000.0375, L503.5510 ####[facility] [address] [place], [address] Chloride [Moles/Vol] 99 mmol/L Normal 98-108 [facility] Comment on above: Performed By: #### L 100.0100, L500.4050, L3000.0375, L503.5510 ####[facility] [address] [place], [address] CO2 [Moles/Vol] 24.1 mmol/L Normal 21.0-32.0 [facility] Comment on above: Performed By: #### L 100.0100, L500.4050, L3000.0375, L503.5510 ####[facility] [address] [place], [address] Creatinine [Mass/Vol] 1.30 mg/dL High 0.70-1.20 [facility] Comment on above: Result Comment: Icte daquan present, Results may be affected. Performed By: #### L 100.0100, L500.4050, L3000.0375, L503.5510 ####[facility] [address] [place], [address] GAP 12 Normal 5-15 [facility] Comment on above: Performed By: #### L 100.0100, L500.4050, L3000.0375, L503.5510 ####[facility] [address] [place], [address] GFR/1.73 sq M.predicted among non-blacks MDRD (S/P/Bld) [Vol rate/Area] 64 mL/min/{1.73_m2} Normal >60 [facility] Comment on above: Result Comment: mL/m in/1.73m2 CKD-EPI Creatinine Equation (2020) Performed By: #### L 100.0100, L500.4050, L3000.0375, L503.5510 ####[facility] [address] [place], [address] Globulin (S) [Mass/Vol] 3.5 g/dL Normal 2.2-4.2 [facility] Comment on above: Performed By: #### L 100.0100, L500.4050, L3000.0375, L503.5510 ####[facility] [address] [place], [address] Glucose [Mass/Vol] 250 mg/dL High 70-99 [facility] Comment on above: Performed By: #### L 100.0100, L500.4050, L3000.0375, L503.5510 ####[facility] [address] [place], [address] Potassium [Moles/Vol] 3.1 mmol/L Low 3.3-5.1 [facility] Comment on above: Performed By: #### L 100.0100, L500.4050, L3000.0375, L503.5510 ####[facility] [address] [place], [address] Sodium [Moles/Vol] 135 mmol/L Normal 133-145 [facility] Comment on above: Performed By: #### L 100.0100, L500.4050, L3000.0375, L503.5510 ####[facility] [address] [place], [address] T PROT 5.8 g/dL Low 5.9-8.4 [facility] Comment on above: Performed By: #### L 100.0100, L500.4050, L3000.0375, L503.5510 ####[facility] [address] [place], [address] Urea nitrogen [Mass/Vol] 12 mg/dL Normal 4-19 [facility] Comment on above: Performed By: #### L 100.0100, L500.4050, L3000.0375, L503.5510 ####[facility] [address] [place], [address] Emergency Department Summary on 02-16-2025 Emergency Department Summary Normal [facility] Eosinophil percentageOrdered By: Jerald Sherwood on 02-16-2025 Eosinophils/100 WBC (Bld) 5.4 % High 0-5 [facility] Erythrocyte distribution wid th ratioOrdered By: Jerald Sherwood on 02-16-2025 Erythrocyte distribution width (RBC) [Ratio] 18.7 % High 11.6-14.6 [facility] Erythrocyte distribution wid th standard deviationOrdered By: Jerald Sherwood on 02-16-2025 Erythrocyte distribution width (RBC) [Ratio] 53.5 fl High 35.1-43.9 [facility] Glomerular filtration rate ( GFR) estimation/1.73 sq m using serum, plasma, or whole bOrdered By: Jerald Sherwood on 02-16-2025 GFR/1.73 sq M.predicted among non-blacks MDRD (S/P/Bld) [Vol rate/Area] 64 mL/min/{1.73_m2} >60 [facility] H AND P Exam - Hospitaliston 02-16-2025 H&P Exam - Hospitalist Normal [facility] Hematocrit Auto (Bld) [Volum e fraction]Ordered By: Jerald Sherwood on 02-16-2025 Hematocrit (Bld) [Volume fraction] 24.8 % Low 40-54 [facility] Hemoglobin measurementOrdere d By: Jerald Sherwood on 02-16-2025 Hemoglobin (Bld) [Mass/Vol] 8.2 g/dL Low 13.0-16.5 [facility] Immature granulocytes/100 WB C Auto (Bld)Ordered By: Jerald Sherwood on 02-16-2025 Immature granulocytes/100 WBC (Bld) 0.200 % 0.0-0.9 [facility] LDHon 02-16-2025 LDH 273 U/L High 87-241 [facility] Comment on above: Performed By: #### L 504.2610, L501.4700 ####[facility] [address] [facility] [place], [place], [id number] MCV (mean corpuscular volume ) determinationOrdered By: Jerald Sherwood on 02-16-2025 MCV (RBC) [Entitic vol] 87.3 fL 80-94 [facility] Magnesiumon 02-16-2025 Magnesium [Mass/Vol] 1.3 mg/dL Low 1.5-2.2 [facility] Comment on above: Performed By: #### L 501.2300, L501.5200 ####[facility] [address] [facility] [place], [place], [address] Magnesium measurement (mass/ volume)Ordered By: Jae Ash on 02-16-2025 Magnesium (Unsp spec) [Mass/Vol] 1.3 mg/dL Low 1.5-2.2 [facility] Mean corpuscular hemoglobin (MCH) determinationOrdered By: Jerald Sherwood on 02-16-2025 MCH (RBC) [Entitic mass] 28.9 pg 27.0-32.0 [facility] Monocyte percentageOrdered B y: Jerald Sherwood on 02-16-2025 Monocytes/100 WBC (Bld) 11.7 % High 0-10 [facility] Neutrophil percentageOrdered By: Jerald Sherwood on 02-16-2025 Neutrophils/100 WBC (Bld) 67.1 % 47-70 [facility] No Panel InformationOrdered By: Jerald Sherwood on 02-16-2025 109 U/L High <38 [facility] Comment . [facility] Phosphoruson 02-16-2025 Phosphate [Mass/Vol] 2.3 mg/dL Low 2.7-4.5 [facility] Comment on above: Performed By: #### L 501.2300, L501.5200 ####[facility] [address] [place], [place], [id number] Platelet countOrdered By: Paulette Sherwood on 02-16-2025 Platelets (Bld) [#/Vol] 106 10*3/uL Low 150-450 [facility] Potassium measurement (mass/ volume)Ordered By: Jerald Sherwood on 02-16-2025 Potassium (Unsp spec) [Mass/Vol] 3.1 mmol/L Low 3.3-5.1 [facility] Prothrombin Time w/INRon INR Coag (PPP) [Relative time] 1.8 {INR} Normal [facility] Comment on above: Performed By: #### L 300.3900 ####[facility] [address] [place], [place], [id number] PT Coag (PPP) [Time] 21.1 s High 11.7-14.9 [facility] Comment on above: Performed By: #### L 300.3900 ####[facility] [address] [place], [place], [id number] RBC Auto (Bld) [#/Vol]Ordere d By: Jerald Sherwood on 02-16-2025 RBC (Bld) [#/Vol] 2.84 10*6/uL Low 4.6-6.2 [facility] Serum creatinine measurement (mass/volume)Ordered By: Jerald Sherwood on 02-16-2025 Creatinine [Mass/Vol] 1.30 mg/dL High 0.70-1.20 [facility] Serum globulin measurementOr dered By: Jerald Sherwood on 02-16-2025 Globulin (S) [Mass/Vol] 3.5 g/dL 2.2-4.2 [facility] Serum glucose measurement (m ass/volume)Ordered By: Jerald Sherwood on 02-16-2025 Glucose [Mass/Vol] 250 mg/dL High 70-99 [facility] Serum or plasma alanine thomas otransferase (ALT) measurementOrdered By: Jerald Sherwood on 02-16-2025 ALT [Catalytic activity/Vol] 51 U/L High <47 [facility] Serum or plasma albumin roosevelt urement (mass/volume)Ordered By: Jerald Sherwood on 02-16-2025 Albumin [Mass/Vol] 2.3 g/dL Low 3.5-5.0 [facility] Serum or plasma albumin/glob ulin mass ratioOrdered By: Jerald Sherwood on 02-16-2025 Albumin/Globulin [Mass ratio] 0.7 {ratio} Low 0.9-2.4 [facility] Serum or plasma alkaline kendrick sphatase measurementOrdered By: Jerald Sherwood on 02-16-2025 ALP [Catalytic activity/Vol] 310 U/L High 40-129 [facility] Serum or plasma calcium roosevelt urement (mass/volume)Ordered By: Jerald Sherwood on 02-16-2025 Calcium [Mass/Vol] 7.8 mg/dL 7.6-11.0 [facility] Serum or plasma hepatitis B virus surface antigen detection by immunoassayOrdered By: Jerald Sherwood on 02-16-2025 HBV surface Ag IA Ql Negative Negative [facility] Serum or plasma urea nitroge n measurement (mass/volume)Ordered By: Jerald Sherwood on 02-16-2025 Urea nitrogen [Mass/Vol] 12 mg/dL 4-19 [facility] Sodium levelOrdered By: Jerald Sherwood on 02-16-2025 Sodium [Moles/Vol] 135 mmol/L 133-145 [facility] Total proteinOrdered By: Candie Sherwood on 02-16-2025 Protein [Mass/Vol] 5.8 g/dL Low 5.9-8.4 [facility] Venous blood ammonia measure mentOrdered By: Jerald Sherwood on 02-16-2025 Ammonia (P) [Moles/Vol] 88.0 umol/L High 16-60 [facility] Comment on above: Performed By: #### L 100.0100, L500.4050, L3000.0375, L503.5510 ####[facility] [address] [place], [address] White blood cell (WBC) count Ordered By: Jerald Sherwood on 02-16-2025 WBC (Bld) [#/Vol] 8.5 10*3/uL 4.4-11.0 [facility] Abdomen/Pelvis W IV Cont ONL Yon 02-13-2025 Abdomen/Pelvis W IV Cont ONLY Normal [facility] Absolute lymphocyte countOrd ered By: Luis Carols Anderson on 02-13-2025 Lymphocytes Auto (Unsp spec) [#/Vol] 1.20 10*3/uL 0.83-4.51 [facility] Anion gap in Serum or Plasma Ordered By: Luis Carlos Anderson on 02-13-2025 Anion gap [Moles/Vol] 14 mmol/L 5-15 [facility] Automated lymphocyte count a s percentage of total leukocytesOrdered By: Luis Carlos Anderson on 02-13-2025 Lymphocytes/100 WBC Auto (Unsp spec) 13.9 % Low 19-41 [facility] BUN/creatinine ratioOrdered By: Luis Carlos Anderson on 02-13-2025 Urea nitrogen/Creatinine [Mass ratio] 14.3 mg/mg 10-20 [facility] Basophil percentageOrdered B y: Luis Carlos Anderson on 02-13-2025 Basophils/100 WBC (Bld) 0.3 % 0-1 [facility] Bilirubin, totalOrdered By: Luis Carlos Anderson on 02-13-2025 Bilirubin [Mass/Vol] 6.20 mg/dL High 0.00-1.30 [facility] Blood manual differential co mment interpretation (narrative result)Ordered By: Luis Carlos Anderson on 02-13-2025 Manual differential comment Marco Antonio (Bld) [Interp] SCANNED [facility] CBC W/Diff, Automatedon 02-01 PLT EST MOD DEC Normal ADEQ [facility] Comment on above: Performed By: #### L 100.0100, L500.4050, L501.2450 ####[facility] [address] [place], [address] Platelet mean volume (Bld) [Entitic vol] 10.8 fL Normal 6.2-12.0 [facility] Comment on above: Performed By: #### L 100.0100, L500.4050, L501.2450 ####[facility] [address] [place], [address] Platelets (Bld) [#/Vol] 83 10*3/uL Low 150-450 [facility] Comment on above: Result Comment: NO C LUMPING SEEN Performed By: #### L 100.0100, L500.4050, L501.2450 ####[facility] [address] [place], [address] SMEAR COMMENT SCANNED Normal [facility] Comment on above: Performed By: #### L 100.0100, L500.4050, L501.2450 ####[facility] [address] [place], [address] Carbon dioxide, total [Moles /volume] in Central venous bloodOrdered By: Luis Carlos Anderson on 02-13-2025 CO2 [Moles/Vol] 18.4 mmol/L Low 21.0-32.0 [facility] Chloride assayOrdered By: Yaya Anderson on 02-13-2025 Chloride [Moles/Vol] 102 mmol/L 98-108 [facility] Comprehensive Metabolic Prof ilon 02-13-2025 Albumin [Mass/Vol] 2.2 g/dL Low 3.5-5.0 [facility] Comment on above: Performed By: #### L 100.0100, L500.4050, L501.2450 ####[facility] [address] [place], [address] Albumin/Globulin [Mass ratio] 0.6 {ratio} Low 0.9-2.4 [facility] Comment on above: Performed By: #### L 100.0100, L500.4050, L501.2450 ####[facility] [address] [place], [address] ALK PHOS 335 U/L High 40-129 [facility] Comment on above: Performed By: #### L 100.0100, L500.4050, L501.2450 ####[facility] [address] [place], [address] ALT [Catalytic activity/Vol] 53 U/L High <=46 [facility] Comment on above: Performed By: #### L 100.0100, L500.4050, L501.2450 ####[facility] [address] [place], [address] AST [Catalytic activity/Vol] 120 U/L High <=37 [facility] Comment on above: Performed By: #### L 100.0100, L500.4050, L501.2450 ####[facility] [address] [place], [address] Bilirubin [Mass/Vol] 6.20 mg/dL High 0.00-1.30 [facility] Comment on above: Performed By: #### L 100.0100, L500.4050, L501.2450 ####[facility] [address] [place], [address] BUN/CRE 14.3 RATIO Normal 10-20 [facility] Comment on above: Performed By: #### L 100.0100, L500.4050, L501.2450 ####[facility] [address] [place], [address] Calcium [Mass/Vol] 8.3 mg/dL Normal 7.6-11.0 [facility] Comment on above: Performed By: #### L 100.0100, L500.4050, L501.2450 ####[facility] [address] [place], [address] Chloride [Moles/Vol] 102 mmol/L Normal 98-108 [facility] Comment on above: Performed By: #### L 100.0100, L500.4050, L501.2450 ####[facility] [address] [place], [address] CO2 [Moles/Vol] 18.4 mmol/L Low 21.0-32.0 [facility] Comment on above: Performed By: #### L 100.0100, L500.4050, L501.2450 ####[facility] [address] [place], [address] Creatinine [Mass/Vol] 1.78 mg/dL High 0.70-1.20 [facility] Comment on above: Result Comment: Icte daquan present, Results may be affected. Performed By: #### L 100.0100, L500.4050, L501.2450 ####[facility] [address] [place], [address] ECRCL 53.12 ml/min Normal 50-250 [facility] Comment on above: Performed By: #### L 100.0100, L500.4050, L501.2450 ####[facility] [address] [place], [address] GAP 14 Normal 5-15 [facility] Comment on above: Performed By: #### L 100.0100, L500.4050, L501.2450 ####[facility] [address] [place], [address] GFR/1.73 sq M.predicted among non-blacks MDRD (S/P/Bld) [Vol rate/Area] 44 mL/min/{1.73_m2} Low >60 [facility] Comment on above: Result Comment: mL/m in/1.73m2 CKD-EPI Creatinine Equation (2020) Performed By: #### L 100.0100, L500.4050, L501.2450 ####[facility] [address] [place], [address] Globulin (S) [Mass/Vol] 3.7 g/dL Normal 2.2-4.2 [facility] Comment on above: Performed By: #### L 100.0100, L500.4050, L501.2450 ####[facility] [address] [place], [address] Glucose [Mass/Vol] 169 mg/dL High 70-99 [facility] Comment on above: Performed By: #### L 100.0100, L500.4050, L501.2450 ####[facility] [address] [place], [address] Potassium [Moles/Vol] 3.4 mmol/L Normal 3.3-5.1 [facility] Comment on above: Result Comment: Hemo lysis present, Results??could be affected.?? Performed By: #### L 100.0100, L500.4050, L501.2450 ####[facility] [address] [place], [address] Sodium [Moles/Vol] 135 mmol/L Normal 133-145 [facility] Comment on above: Performed By: #### L 100.0100, L500.4050, L501.2450 ####[facility] [address] [place], [address] T PROT 5.8 g/dL Low 5.9-8.4 [facility] Comment on above: Performed By: #### L 100.0100, L500.4050, L501.2450 ####[facility] [address] [place], [place], [address] Urea nitrogen [Mass/Vol] 25 mg/dL High 4-19 [facility] Comment on above: Performed By: #### L 100.0100, L500.4050, L501.2450 ####[facility] [address] [place], [place], [address] Emergency Department Summary on 02-13-2025 Emergency Department Summary Normal [facility] Eosinophil percentageOrdered By: Luis Carlos Anderson on 02-13-2025 Eosinophils/100 WBC (Bld) 5.1 % High 0-5 [facility] Erythrocyte distribution wid th ratioOrdered By: Luis Carlos Anderson on 02-13-2025 Erythrocyte distribution width (RBC) [Ratio] 17.4 % High 11.6-14.6 [facility] Erythrocyte distribution wid th standard deviationOrdered By: Luis Carlos Anderson on 02-13-2025 Erythrocyte distribution width (RBC) [Ratio] 52.3 fl High 35.1-43.9 [facility] Glomerular filtration rate ( GFR) estimation/1.73 sq m using serum, plasma, or whole bOrdered By: Luis Carlos Anderson on 02-13-2025 GFR/1.73 sq M.predicted among non-blacks MDRD (S/P/Bld) [Vol rate/Area] 44 mL/min/{1.73_m2} Low >60 [facility] Hematocrit Auto (Bld) [Volum e fraction]Ordered By: Luis Carlos Anderson on 02-13-2025 Hematocrit (Bld) [Volume fraction] 24.1 % Low 40-54 [facility] Hemoglobin measurementOrdere d By: Luis Carlos Anderson on 02-13-2025 Hemoglobin (Bld) [Mass/Vol] 8.3 g/dL Low 13.0-16.5 [facility] Immature granulocytes/100 WB C Auto (Bld)Ordered By: Luis Carlos Anderson on 02-13-2025 Immature granulocytes/100 WBC (Bld) 0.500 % 0.0-0.9 [facility] Lipaseon 02-13-2025 Lipase [Catalytic activity/Vol] 60 U/L Normal 13-75 [facility] Comment on above: Result Comment: Siddhartha bhat note:LIPASE revised reference range effective 22.New Lipase methodology. Expected to produce lower valuesthan the previous assay method.NEW Reference Range: 13 - 75 U/L Performed By: #### L 100.0100, L500.4050, L501.2450 ####[facility] [address] [place], [address] MCV (mean corpuscular volume ) determinationOrdered By: Luis Carlos Anderson on 02-13-2025 MCV (RBC) [Entitic vol] 84.9 fL 80-94 [facility] Mean corpuscular hemoglobin (MCH) determinationOrdered By: Luis Carlos Anderson on 02-13-2025 MCH (RBC) [Entitic mass] 29.2 pg 27.0-32.0 [facility] Monocyte percentageOrdered B y: Luis Carlos Anderson on 02-13-2025 Monocytes/100 WBC (Bld) 16.1 % High 0-10 [facility] Neutrophil percentageOrdered By: Luis Carlos Anderson on 02-13-2025 Neutrophils/100 WBC (Bld) 64.1 % 47-70 [facility] No Panel InformationOrdered By: Luis Carlos Anderson on 02-13-2025 120 U/L High <38 [facility] Platelet countOrdered By: felipe Anderson on 02-13-2025 Platelets (Bld) [#/Vol] 83 10*3/uL Low 150-450 [facility] Platelet estimateOrdered By: Luis Carlos Anderson on 02-13-2025 Platelets LM Ql (Bld) MOD DEC ADEQ [facility] Potassium measurement (mass/ volume)Ordered By: Luis Carlos Anderson on 02-13-2025 Potassium (Unsp spec) [Mass/Vol] 3.4 mmol/L 3.3-5.1 [facility] RBC Auto (Bld) [#/Vol]Ordere d By: Luis Carlos Anderson on 02-13-2025 RBC (Bld) [#/Vol] 2.84 10*6/uL Low 4.6-6.2 [facility] Serum creatinine measurement (mass/volume)Ordered By: Luis Carlos Anderson on 02-13-2025 Creatinine [Mass/Vol] 1.78 mg/dL High 0.70-1.20 [facility] Serum globulin measurementOr dered By: Luis Carlos Anderson on 02-13-2025 Globulin (S) [Mass/Vol] 3.7 g/dL 2.2-4.2 [facility] Serum glucose measurement (m ass/volume)Ordered By: Luis Carlos Anderson on 02-13-2025 Glucose [Mass/Vol] 169 mg/dL High 70-99 [facility] Serum or plasma alanine thomas otransferase (ALT) measurementOrdered By: Luis Carlos Anderson on 02-13-2025 ALT [Catalytic activity/Vol] 53 U/L High <47 [facility] Serum or plasma albumin roosevelt urement (mass/volume)Ordered By: Luis Carlos Anderson on 02-13-2025 Albumin [Mass/Vol] 2.2 g/dL Low 3.5-5.0 [facility] Serum or plasma albumin/glob ulin mass ratioOrdered By: Luis Carlos Anderson on 02-13-2025 Albumin/Globulin [Mass ratio] 0.6 {ratio} Low 0.9-2.4 [facility] Serum or plasma alkaline kendrick sphatase measurementOrdered By: Luis Carlos Anderson on 02-13-2025 ALP [Catalytic activity/Vol] 335 U/L High 40-129 [facility] Serum or plasma calcium roosevelt urement (mass/volume)Ordered By: Luis Carlos Anderson on 02-13-2025 Calcium [Mass/Vol] 8.3 mg/dL 7.6-11.0 [facility] Serum or plasma urea nitroge n measurement (mass/volume)Ordered By: Luis Carlos Anderson on 02-13-2025 Urea nitrogen [Mass/Vol] 25 mg/dL High 4-19 [facility] Sodium levelOrdered By: Yunior Anderson on 02-13-2025 Sodium [Moles/Vol] 135 mmol/L 133-145 [facility] Total proteinOrdered By: The alexandria Justin on 02-13-2025 Protein [Mass/Vol] 5.8 g/dL Low 5.9-8.4 [facility] White blood cell (WBC) count Ordered By: Luis Carlos Justin on 02-13-2025 WBC (Bld) [#/Vol] 8.6 10*3/uL 4.4-11.0 [facility] Operative Reporton Operative Report Normal [facility] Paracentesis with USon 02-11 Paracentesis with US Normal [facility] Emergency Department Summary on 02-08-2025 Emergency Department Summary Normal [facility] Abdomen/Pelvis W IV Cont ONL Yon 02-07-2025 Abdomen/Pelvis W IV Cont ONLY Normal [facility] Absolute lymphocyte countOrd ered By: ED PROVIDER on 02-07-2025 Lymphocytes Auto (Unsp spec) [#/Vol] 1.39 10*3/uL 0.83-4.51 [facility] Anion gap in Serum or Plasma Ordered By: ED PROVIDER on 02-07-2025 Anion gap [Moles/Vol] 9 mmol/L 5-15 [facility] Automated lymphocyte count a s percentage of total leukocytesOrdered By: ED PROVIDER on 02-07-2025 Lymphocytes/100 WBC Auto (Unsp spec) 12.8 % Low 19-41 [facility] BUN/creatinine ratioOrdered By: ED PROVIDER on 02-07-2025 Urea nitrogen/Creatinine [Mass ratio] 13.9 mg/mg 10-20 [facility] Basophil percentageOrdered B y: ED PROVIDER on 02-07-2025 Basophils/100 WBC (Bld) 0.5 % 0-1 [facility] Bilirubin, totalOrdered By: ED PROVIDER on 02-07-2025 Bilirubin [Mass/Vol] 1.92 mg/dL High 0.00-1.30 [facility] CBC W/Diff, Automatedon Absolute Lymph 1.39 X10 3/uL Normal 0.83-4.51 [facility] Comment on above: Performed By: #### L 100.0100, L501.2450, L500.4050 ####[facility] [address] [place], [address] Absolute Neut 7.9 X10 3/uL High 2.0-7.7 [facility] Comment on above: Performed By: #### L 100.0100, L501.2450, L500.4050 ####[facility] [address] [place], [address] Basophils/100 WBC (Bld) 0.5 % Normal 0-1 [facility] Comment on above: Performed By: #### L 100.0100, L501.2450, L500.4050 ####[facility] [address] [place], [address] Eosinophils/100 WBC (Bld) 5.4 % High 0-5 [facility] Comment on above: Performed By: #### L 100.0100, L501.2450, L500.4050 ####[facility] [address] [place], [address] Erythrocyte distribution width (RBC) [Ratio] 17.9 % High 11.6-14.6 [facility] Comment on above: Performed By: #### L 100.0100, L501.2450, L500.4050 ####[facility] [address] [place], [address] Hematocrit (Bld) [Volume fraction] 28.8 % Low 40-54 [facility] Comment on above: Performed By: #### L 100.0100, L501.2450, L500.4050 ####[facility] [address] [place], [address] Hemoglobin (Bld) [Mass/Vol] 9.2 g/dL Low 13.0-16.5 [facility] Comment on above: Performed By: #### L 100.0100, L501.2450, L500.4050 ####[facility] [address] [place], [address] IG% 0.400 Normal 0.0-0.9 [facility] Comment on above: Result Comment: IG% - Immature Granulocytes (promyelocytes, myelocytes andmetamyelocytes) > 1% indicates that a LEFT SHIFT is Present. Performed By: #### L 100.0100, L501.2450, L500.4050 ####[facility] [address] [place], [address] Lymphocytes/100 WBC (Bld) 12.8 % Low 19-41 [facility] Comment on above: Performed By: #### L 100.0100, L501.2450, L500.4050 ####[facility] [address] [place], [address] MCH (RBC) [Entitic mass] 29.0 pg Normal 27.0-32.0 [facility] Comment on above: Performed By: #### L 100.0100, L501.2450, L500.4050 ####[facility] [address] [place], [address] MCHC (RBC) [Mass/Vol] 31.9 g/dL Low 32-36 [facility] Comment on above: Performed By: #### L 100.0100, L501.2450, L500.4050 ####[facility] [address] [place], [address] MCV (RBC) [Entitic vol] 90.9 fL Normal 80-94 [facility] Comment on above: Performed By: #### L 100.0100, L501.2450, L500.4050 ####[facility] [address] [place], [address] Monocytes/100 WBC (Bld) 8.1 % Normal 0-10 [facility] Comment on above: Performed By: #### L 100.0100, L501.2450, L500.4050 ####[facility] [address] [place], [address] Neutrophils/100 WBC (Bld) 72.8 % High 47-70 [facility] Comment on above: Performed By: #### L 100.0100, L501.2450, L500.4050 ####[facility] [address] [place], [address] Nucleated RBC (Bld) [#/Vol] 0 10*3/uL Normal 0-5 [facility] Comment on above: Performed By: #### L 100.0100, L501.2450, L500.4050 ####[facility] [address] [place], [address] Platelet mean volume (Bld) [Entitic vol] 10.1 fL Normal 6.2-12.0 [facility] Comment on above: Performed By: #### L 100.0100, L501.2450, L500.4050 ####[facility] [address] [place], [address] Platelets (Bld) [#/Vol] 131 10*3/uL Low 150-450 [facility] Comment on above: Performed By: #### L 100.0100, L501.2450, L500.4050 ####[facility] [address] [place], [address] RBC (Bld) [#/Vol] 3.17 10*6/uL Low 4.6-6.2 [facility] Comment on above: Performed By: #### L 100.0100, L501.2450, L500.4050 ####[facility] [address] [place], [address] RDW SD 58.3 fl High 35.1-43.9 [facility] Comment on above: Performed By: #### L 100.0100, L501.2450, L500.4050 ####[facility] [address] [place], [address] WBC (Bld) [#/Vol] 10.8 10*3/uL Normal 4.4-11.0 [facility] Comment on above: Performed By: #### L 100.0100, L501.2450, L500.4050 ####[facility] [address] [place], [address] Carbon dioxide, total [Moles /volume] in Central venous bloodOrdered By: ED PROVIDER on 02-07-2025 CO2 [Moles/Vol] 22.7 mmol/L 21.0-32.0 [facility] Chloride assayOrdered By: ED PROVIDER on 02-07-2025 Chloride [Moles/Vol] 106 mmol/L 98-108 [facility] Comprehensive Metabolic Prof ilon 02-07-2025 Albumin [Mass/Vol] 2.2 g/dL Low 3.5-5.0 [facility] Comment on above: Performed By: #### L 100.0100, L501.2450, L500.4050 ####[facility] [address] [place], [address] Albumin/Globulin [Mass ratio] 0.6 {ratio} Low 0.9-2.4 [facility] Comment on above: Performed By: #### L 100.0100, L501.2450, L500.4050 ####[facility] [address] [place], [address] ALK PHOS 218 U/L High 40-129 [facility] Comment on above: Performed By: #### L 100.0100, L501.2450, L500.4050 ####[facility] [address] [place], [address] ALT [Catalytic activity/Vol] 30 U/L Normal <=46 [facility] Comment on above: Performed By: #### L 100.0100, L501.2450, L500.4050 ####[facility] [address] [place], [address] AST [Catalytic activity/Vol] 55 U/L High <=37 [facility] Comment on above: Performed By: #### L 100.0100, L501.2450, L500.4050 ####[facility] [address] [place], [address] Bilirubin [Mass/Vol] 1.92 mg/dL High 0.00-1.30 [facility] Comment on above: Performed By: #### L 100.0100, L501.2450, L500.4050 ####[facility] [address] [place], [address] BUN/CRE 13.9 RATIO Normal 10-20 [facility] Comment on above: Performed By: #### L 100.0100, L501.2450, L500.4050 ####[facility] [address] [place], [address] Calcium [Mass/Vol] 8.4 mg/dL Normal 7.6-11.0 [facility] Comment on above: Performed By: #### L 100.0100, L501.2450, L500.4050 ####[facility] [address] [place], [address] Chloride [Moles/Vol] 106 mmol/L Normal 98-108 [facility] Comment on above: Performed By: #### L 100.0100, L501.2450, L500.4050 ####[facility] [address] [place], [address] CO2 [Moles/Vol] 22.7 mmol/L Normal 21.0-32.0 [facility] Comment on above: Performed By: #### L 100.0100, L501.2450, L500.4050 ####[facility] [address] [place], [address] Creatinine [Mass/Vol] 1.05 mg/dL Normal 0.70-1.20 [facility] Comment on above: Performed By: #### L 100.0100, L501.2450, L500.4050 ####[facility] [address] [place], [address] GAP 9 Normal 5-15 [facility] Comment on above: Performed By: #### L 100.0100, L501.2450, L500.4050 ####[facility] [address] [place], [address] GFR/1.73 sq M.predicted among non-blacks MDRD (S/P/Bld) [Vol rate/Area] 82 mL/min/{1.73_m2} Normal >60 [facility] Comment on above: Result Comment: mL/m in/1.73m2 CKD-EPI Creatinine Equation (2020) Performed By: #### L 100.0100, L501.2450, L500.4050 ####[facility] [address] [place], [address] Globulin (S) [Mass/Vol] 3.5 g/dL Normal 2.2-4.2 [facility] Comment on above: Performed By: #### L 100.0100, L501.2450, L500.4050 ####[facility] [address] [place], [address] Glucose [Mass/Vol] 142 mg/dL High 70-99 [facility] Comment on above: Performed By: #### L 100.0100, L501.2450, L500.4050 ####[facility] [address] [place], [address] Potassium [Moles/Vol] 3.7 mmol/L Normal 3.3-5.1 [facility] Comment on above: Performed By: #### L 100.0100, L501.2450, L500.4050 ####[facility] [address] [place], [address] Sodium [Moles/Vol] 137 mmol/L Normal 133-145 [facility] Comment on above: Performed By: #### L 100.0100, L501.2450, L500.4050 ####[facility] [address] [place], [address] T PROT 5.8 g/dL Low 5.9-8.4 [facility] Comment on above: Performed By: #### L 100.0100, L501.2450, L500.4050 ####[facility] [address] [place], [address] Urea nitrogen [Mass/Vol] 15 mg/dL Normal 4-19 [facility] Comment on above: Performed By: #### L 100.0100, L501.2450, L500.4050 ####[facility] [address] [place], [address] Eosinophil percentageOrdered By: ED PROVIDER on 02-07-2025 Eosinophils/100 WBC (Bld) 5.4 % High 0-5 [facility] Erythrocyte distribution wid th ratioOrdered By: ED PROVIDER on 02-07-2025 Erythrocyte distribution width (RBC) [Ratio] 17.9 % High 11.6-14.6 [facility] Erythrocyte distribution wid th standard deviationOrdered By: ED PROVIDER on 02-07-2025 Erythrocyte distribution width (RBC) [Ratio] 58.3 fl High 35.1-43.9 [facility] Glomerular filtration rate ( GFR) estimation/1.73 sq m using serum, plasma, or whole bOrdered By: ED PROVIDER on 02-07-2025 GFR/1.73 sq M.predicted among non-blacks MDRD (S/P/Bld) [Vol rate/Area] 82 mL/min/{1.73_m2} >60 [facility] Hematocrit Auto (Bld) [Volum e fraction]Ordered By: ED PROVIDER on 02-07-2025 Hematocrit (Bld) [Volume fraction] 28.8 % Low 40-54 [facility] Hemoglobin measurementOrdere d By: ED PROVIDER on 02-07-2025 Hemoglobin (Bld) [Mass/Vol] 9.2 g/dL Low 13.0-16.5 [facility] Immature granulocytes/100 WB C Auto (Bld)Ordered By: ED PROVIDER on 02-07-2025 Immature granulocytes/100 WBC (Bld) 0.400 % 0.0-0.9 [facility] Lipaseon 02-07-2025 Lipase [Catalytic activity/Vol] 35 U/L Normal 13-75 [facility] Comment on above: Result Comment: Siddhartha bhat note:LIPASE revised reference range effective 22.New Lipase methodology. Expected to produce lower valuesthan the previous assay method.NEW Reference Range: 13 - 75 U/L Performed By: #### L 100.0100, L501.2450, L500.4050 ####[facility] [address] [place], [address] MCV (mean corpuscular volume ) determinationOrdered By: ED PROVIDER on 02-07-2025 MCV (RBC) [Entitic vol] 90.9 fL 80-94 [facility] Mean corpuscular hemoglobin (MCH) determinationOrdered By: ED PROVIDER on 02-07-2025 MCH (RBC) [Entitic mass] 29.0 pg 27.0-32.0 [facility] Monocyte percentageOrdered B y: ED PROVIDER on 02-07-2025 Monocytes/100 WBC (Bld) 8.1 % 0-10 [facility] Neutrophil percentageOrdered By: ED PROVIDER on 02-07-2025 Neutrophils/100 WBC (Bld) 72.8 % High 47-70 [facility] No Panel InformationOrdered By: ED PROVIDER on 02-07-2025 55 U/L High <38 [facility] Platelet countOrdered By: ED PROVIDER on 02-07-2025 Platelets (Bld) [#/Vol] 131 10*3/uL Low 150-450 [facility] Potassium measurement (mass/ volume)Ordered By: ED PROVIDER on 02-07-2025 Potassium (Unsp spec) [Mass/Vol] 3.7 mmol/L 3.3-5.1 [facility] RBC Auto (Bld) [#/Vol]Ordere d By: ED PROVIDER on 02-07-2025 RBC (Bld) [#/Vol] 3.17 10*6/uL Low 4.6-6.2 [facility] Serum creatinine measurement (mass/volume)Ordered By: ED PROVIDER on 02-07-2025 Creatinine [Mass/Vol] 1.05 mg/dL 0.70-1.20 [facility] Serum globulin measurementOr dered By: ED PROVIDER on 02-07-2025 Globulin (S) [Mass/Vol] 3.5 g/dL 2.2-4.2 [facility] Serum glucose measurement (m ass/volume)Ordered By: ED PROVIDER on 02-07-2025 Glucose [Mass/Vol] 142 mg/dL High 70-99 [facility] Serum or plasma alanine thomas otransferase (ALT) measurementOrdered By: ED PROVIDER on 02-07-2025 ALT [Catalytic activity/Vol] 30 U/L <47 [facility] Serum or plasma albumin roosevelt urement (mass/volume)Ordered By: ED PROVIDER on 02-07-2025 Albumin [Mass/Vol] 2.2 g/dL Low 3.5-5.0 [facility] Serum or plasma albumin/glob ulin mass ratioOrdered By: ED PROVIDER on 02-07-2025 Albumin/Globulin [Mass ratio] 0.6 {ratio} Low 0.9-2.4 [facility] Serum or plasma alkaline kendrick sphatase measurementOrdered By: ED PROVIDER on 02-07-2025 ALP [Catalytic activity/Vol] 218 U/L High 40-129 [facility] Serum or plasma calcium roosevelt urement (mass/volume)Ordered By: ED PROVIDER on 02-07-2025 Calcium [Mass/Vol] 8.4 mg/dL 7.6-11.0 [facility] Serum or plasma urea nitroge n measurement (mass/volume)Ordered By: ED PROVIDER on 02-07-2025 Urea nitrogen [Mass/Vol] 15 mg/dL 4-19 [facility] Sodium levelOrdered By: JOY NUNEZ on 02-07-2025 Sodium [Moles/Vol] 137 mmol/L 133-145 [facility] Total proteinOrdered By: ED PROVIDER on 02-07-2025 Protein [Mass/Vol] 5.8 g/dL Low 5.9-8.4 [facility] White blood cell (WBC) count Ordered By: ED PROVIDER on 02-07-2025 WBC (Bld) [#/Vol] 10.8 10*3/uL 4.4-11.0 [facility] [place] Culture, Blood (WB)on 2024 CUB Blood cultures x2, f rom two different sites No growth in 5 days. Normal [facility] Comment on above: Performed By: #### M 200.1000 ####[facility] [address] [place], [address] Anion gap in Serum or Plasma Ordered By: Yaritza Leo on 01-31-2025 Anion gap [Moles/Vol] 9 mmol/L 5-15 [facility] BUN/creatinine ratioOrdered By: Yaritza Leo on 01-31-2025 Urea nitrogen/Creatinine [Mass ratio] 10.7 mg/mg - [facility] Basic Metabolic Profile (BMP )on 01-31-2025 BUN/CRE 10.7 RATIO Normal - [facility] Comment on above: Performed By: #### L 500.2500, L100.0500 ####[facility] [address] [place], [address] Calcium [Mass/Vol] 8.5 mg/dL Normal 7.6-11.0 [facility] Comment on above: Performed By: #### L 500.2500, L100.0500 ####[facility] [address] [place], [address] Chloride [Moles/Vol] 102 mmol/L Normal 98-108 [facility] Comment on above: Performed By: #### L 500.2500, L100.0500 ####[facility] [address] [place], [address] CO2 [Moles/Vol] 22.6 mmol/L Normal 21.0-32.0 [facility] Comment on above: Performed By: #### L 500.2500, L100.0500 ####[facility] [address] [place], [address] Creatinine [Mass/Vol] 0.95 mg/dL Normal 0.70-1.20 [facility] Comment on above: Performed By: #### L 500.2500, L100.0500 ####[facility] [address] [place], [address] ECRCL 108.71 ml/min Normal 50-250 [facility] Comment on above: Performed By: #### L 500.2500, L100.0500 ####[facility] [address] [place], [address] GAP 9 Normal 5-15 [facility] Comment on above: Performed By: #### L 500.2500, L100.0500 ####[facility] [address] [place], [address] GFR/1.73 sq M.predicted among non-blacks MDRD (S/P/Bld) [Vol rate/Area] 93 mL/min/{1.73_m2} Normal >60 [facility] Comment on above: Result Comment: mL/m in/1.73m2 CKD-EPI Creatinine Equation (2020) Performed By: #### L 500.2500, L100.0500 ####[facility] [address] [place], [address] Glucose [Mass/Vol] 143 mg/dL High 70-99 [facility] Comment on above: Performed By: #### L 500.2500, L100.0500 ####[facility] [address] [place], [address] Potassium [Moles/Vol] 3.9 mmol/L Normal 3.3-5.1 [facility] Comment on above: Performed By: #### L 500.2500, L100.0500 ####[facility] [address] [place], [address] Sodium [Moles/Vol] 133 mmol/L Normal 133-145 [facility] Comment on above: Performed By: #### L 500.2500, L100.0500 ####[facility] [address] [place], [address] Urea nitrogen [Mass/Vol] 10 mg/dL Normal 4-19 [facility] Comment on above: Performed By: #### L 500.2500, L100.0500 ####[facility] [address] [place], [address] Bedside Glucoseon 01-31-2025 FINGERSTICK GLU 129 mg/dL High 74-106 [facility] Comment on above: Result Comment: BRISA GEMENT OF PATIENT CARE PER NURSING PROTOCOL Performed By: #### L 501.080 ####[facility] [address] [place], [address] FINGERSTICK GLU 179 mg/dL High 74-106 [facility] Comment on above: Result Comment: BRISA GEMENT OF PATIENT CARE PER NURSING PROTOCOL Performed By: #### L 501.080 ####[facility] [address] [place], [address] FINGERSTICK GLU 149 mg/dL High 74-106 [facility] Comment on above: Result Comment: BRISA GEMENT OF PATIENT CARE PER NURSING PROTOCOL Performed By: #### L 501.080 ####[facility] [address] [place], [address] CBC-Complete Blood Cnt No Di ffon 01-31-2025 Erythrocyte distribution width (RBC) [Ratio] 17.7 % High 11.6-14.6 [facility] Comment on above: Performed By: #### L 500.2500, L100.0500 ####[facility] [address] [place], [address] Hematocrit (Bld) [Volume fraction] 23.8 % Low 40-54 [facility] Comment on above: Performed By: #### L 500.2500, L100.0500 ####[facility] [address] [place], [address] Hemoglobin (Bld) [Mass/Vol] 7.9 g/dL Low 13.0-16.5 [facility] Comment on above: Performed By: #### L 500.2500, L100.0500 ####[facility] [address] [place], [address] MCH (RBC) [Entitic mass] 29.8 pg Normal 27.0-32.0 [facility] Comment on above: Performed By: #### L 500.2500, L100.0500 ####[facility] [address] [place], [address] MCHC (RBC) [Mass/Vol] 33.2 g/dL Normal 32-36 [facility] Comment on above: Performed By: #### L 500.2500, L100.0500 ####[facility] [address] [place], [address] MCV (RBC) [Entitic vol] 89.8 fL Normal 80-94 [facility] Comment on above: Performed By: #### L 500.2500, L100.0500 ####[facility] [address] [place], [address] Platelet mean volume (Bld) [Entitic vol] 10.6 fL Normal 6.2-12.0 [facility] Comment on above: Performed By: #### L 500.2500, L100.0500 ####[facility] [address] [place], [address] Platelets (Bld) [#/Vol] 108 10*3/uL Low 150-450 [facility] Comment on above: Performed By: #### L 500.2500, L100.0500 ####[facility] [address] [place], [address] RBC (Bld) [#/Vol] 2.65 10*6/uL Low 4.6-6.2 [facility] [place] Comment on above: Performed By: #### L 500.2500, L100.0500 ####[facility] [address] [place], [address] RDW SD 56.9 fl High 35.1-43.9 [facility] Comment on above: Performed By: #### L 500.2500, L100.0500 ####[facility] [address] [place], [address] WBC (Bld) [#/Vol] 5.9 10*3/uL Normal 4.4-11.0 [facility] Comment on above: Performed By: #### L 500.2500, L100.0500 ####[facility] [address] [place], [address] Carbon dioxide, total [Moles /volume] in Central venous bloodOrdered By: Yaritza Leo on 01-31-2025 CO2 [Moles/Vol] 22.6 mmol/L 21.0-32.0 [facility] Chloride assayOrdered By: Raad Leo on 01-31-2025 Chloride [Moles/Vol] 102 mmol/L 98-108 [facility] Erythrocyte distribution wid th ratioOrdered By: Yaritza Leo on 01-31-2025 Erythrocyte distribution width (RBC) [Ratio] 17.7 % High 11.6-14.6 [facility] Erythrocyte distribution wid th standard deviationOrdered By: Yaritza Leo on 01-31-2025 Erythrocyte distribution width (RBC) [Ratio] 56.9 fl High 35.1-43.9 [facility] Glomerular filtration rate ( GFR) estimation/1.73 sq m using serum, plasma, or whole bOrdered By: Yaritza Leo on 01-31-2025 GFR/1.73 sq M.predicted among non-blacks MDRD (S/P/Bld) [Vol rate/Area] 93 mL/min/{1.73_m2} >60 [facility] deOrdered By: Yaritza Leo on 01-31-2025 Glucose [Mass/Vol] 129 mg/dL High 74-106 [facility] Hematocrit Auto (Bld) [Volum e fraction]Ordered By: Yaritza Leo on 01-31-2025 Hematocrit (Bld) [Volume fraction] 23.8 % Low 40-54 [facility] Hemoglobin measurementOrdere d By: Yaritza Leo on 01-31-2025 Hemoglobin (Bld) [Mass/Vol] 7.9 g/dL Low 13.0-16.5 [facility] MCV (mean corpuscular volume ) determinationOrdered By: Yaritza Leo on 01-31-2025 MCV (RBC) [Entitic vol] 89.8 fL 80-94 [facility] Mean corpuscular hemoglobin (MCH) determinationOrdered By: Yaritza Leo on 01-31-2025 MCH (RBC) [Entitic mass] 29.8 pg 27.0-32.0 [facility] Platelet countOrdered By: Raad Leo on 01-31-2025 Platelets (Bld) [#/Vol] 108 10*3/uL Low 150-450 [facility] Potassium measurement (mass/ volume)Ordered By: Yaritza Leo on 01-31-2025 Potassium (Unsp spec) [Mass/Vol] 3.9 mmol/L 3.3-5.1 [facility] RBC Auto (Bld) [#/Vol]Ordere d By: Yaritza Leo on 01-31-2025 RBC (Bld) [#/Vol] 2.65 10*6/uL Low 4.6-6.2 [facility] [place] Serum creatinine measurement (mass/volume)Ordered By: Yaritza Leo on 01-31-2025 Creatinine [Mass/Vol] 0.95 mg/dL 0.70-1.20 [facility] Serum glucose measurement (m ass/volume)Ordered By: Yaritza Leo on 01-31-2025 Glucose [Mass/Vol] 143 mg/dL High 70-99 [facility] Serum or plasma calcium roosevelt urement (mass/volume)Ordered By: Yaritza Leo on 01-31-2025 Calcium [Mass/Vol] 8.5 mg/dL 7.6-11.0 [facility] Serum or plasma urea nitroge n measurement (mass/volume)Ordered By: Yaritza Leo on 01-31-2025 Urea nitrogen [Mass/Vol] 10 mg/dL 4-19 [facility] Sodium levelOrdered By: Saritha Leo on 01-31-2025 Sodium [Moles/Vol] 133 mmol/L 133-145 [facility] White blood cell (WBC) count Ordered By: Yaritza Leo on 01-31-2025 WBC (Bld) [#/Vol] 5.9 10*3/uL 4.4-11.0 [facility] Absolute lymphocyte countOrd ered By: Yaritza Leo on 01-30-2025 Lymphocytes Auto (Unsp spec) [#/Vol] 1.08 10*3/uL 0.83-4.51 [facility] Automated lymphocyte count a s percentage of total leukocytesOrdered By: Yaritza Leo on 01-30-2025 Lymphocytes/100 WBC Auto (Unsp spec) 20.0 % 19-41 [facility] Basic Metabolic Profile (BMP )on 01-30-2025 BUN/CRE 10.1 RATIO Normal 10-20 [facility] Comment on above: Performed By: #### L 501.5200, L500.2500, L501.2300, L100.0100 ####[facility] [address] [place], [address] Calcium [Mass/Vol] 8.4 mg/dL Normal 7.6-11.0 [facility] Comment on above: Performed By: #### L 501.5200, L500.2500, L501.2300, L100.0100 ####[facility] [address] [place], [address] Chloride [Moles/Vol] 101 mmol/L Normal 98-108 [facility] Comment on above: Performed By: #### L 501.5200, L500.2500, L501.2300, L100.0100 ####[facility] [address] [place], [address] CO2 [Moles/Vol] 17.3 mmol/L Low 21.0-32.0 [facility] Comment on above: Performed By: #### L 501.5200, L500.2500, L501.2300, L100.0100 ####[facility] [address] [place], [address] Creatinine [Mass/Vol] 0.93 mg/dL Normal 0.70-1.20 [facility] Comment on above: Performed By: #### L 501.5200, L500.2500, L501.2300, L100.0100 ####[facility] [address] [place], [address] ECRCL 111.05 ml/min Normal 50-250 [facility] Comment on above: Performed By: #### L 501.5200, L500.2500, L501.2300, L100.0100 ####[facility] [address] [place], [address] GAP 13 Normal 5-15 [facility] Comment on above: Performed By: #### L 501.5200, L500.2500, L501.2300, L100.0100 ####[facility] [address] [place], [address] GFR/1.73 sq M.predicted among non-blacks MDRD (S/P/Bld) [Vol rate/Area] 95 mL/min/{1.73_m2} Normal >60 [facility] Comment on above: Result Comment: mL/m in/1.73m2 CKD-EPI Creatinine Equation (2020) Performed By: #### L 501.5200, L500.2500, L501.2300, L100.0100 ####[facility] [address] [place], [address] Glucose [Mass/Vol] 139 mg/dL High 70-99 [facility] Comment on above: Performed By: #### L 501.5200, L500.2500, L501.2300, L100.0100 ####[facility] [address] [place], [address] Potassium [Moles/Vol] 3.5 mmol/L Normal 3.3-5.1 [facility] Comment on above: Result Comment: Hemo lysis present, Results??could be affected.?? Performed By: #### L 501.5200, L500.2500, L501.2300, L100.0100 ####[facility] [address] [place], [address] Sodium [Moles/Vol] 131 mmol/L Low 133-145 [facility] Comment on above: Performed By: #### L 501.5200, L500.2500, L501.2300, L100.0100 ####[facility] [address] [place], [address] Urea nitrogen [Mass/Vol] 9 mg/dL Normal 4-19 [facility] Comment on above: Performed By: #### L 501.5200, L500.2500, L501.2300, L100.0100 ####[facility] [address] [place], [address] Basophil percentageOrdered B y: Yaritza Leo on 01-30-2025 Basophils/100 WBC (Bld) 0.7 % Normal 0-1 [facility] Comment on above: Performed By: #### L 501.5200, L500.2500, L501.2300, L100.0100 ####[facility] [address] [place], [address] Bedside Glucoseon 01-30-2025 FINGERSTICK GLU 170 mg/dL High 74-106 [facility] Comment on above: Result Comment: BRISA GEMENT OF PATIENT CARE PER NURSING PROTOCOL Performed By: #### L 501.080 ####[facility] [address] [place], [address] FINGERSTICK GLU 122 mg/dL High 74-106 [facility] Comment on above: Result Comment: BRISA GEMENT OF PATIENT CARE PER NURSING PROTOCOL Performed By: #### L 501.080 ####[facility] [address] [place], [address] FINGERSTICK GLU 119 mg/dL High 74-106 [facility] Comment on above: Result Comment: BRISA GEMENT OF PATIENT CARE PER NURSING PROTOCOL Performed By: #### L 501.080 ####[facility] [address] [place], [address] FINGERSTICK GLU 116 mg/dL High 74-106 [facility] Comment on above: Result Comment: BRISA GEMENT OF PATIENT CARE PER NURSING PROTOCOL Performed By: #### L 501.080 ####[facility] [address] [place], [address] CBC W/Diff, Automatedon 06-2 Absolute Lymph 1.08 X10 3/uL Normal 0.83-4.51 [facility] Comment on above: Performed By: #### L 501.5200, L500.2500, L501.2300, L100.0100 ####[facility] [address] [place], [address] Absolute Neut 2.9 X10 3/uL Normal 2.0-7.7 [facility] Comment on above: Performed By: #### L 501.5200, L500.2500, L501.2300, L100.0100 ####[facility] [address] [place], [address] Erythrocyte distribution width (RBC) [Ratio] 18.1 % High 11.6-14.6 [facility] Comment on above: Performed By: #### L 501.5200, L500.2500, L501.2300, L100.0100 ####[facility] [address] [place], [address] Hematocrit (Bld) [Volume fraction] 24.1 % Low 40-54 [facility] Comment on above: Performed By: #### L 501.5200, L500.2500, L501.2300, L100.0100 ####[facility] [address] [place], [address] Hemoglobin (Bld) [Mass/Vol] 7.7 g/dL Low 13.0-16.5 [facility] Comment on above: Performed By: #### L 501.5200, L500.2500, L501.2300, L100.0100 ####[facility] [address] [place], [address] IG% 0.600 Normal 0.0-0.9 [facility] Comment on above: Result Comment: IG% - Immature Granulocytes (promyelocytes, myelocytes andmetamyelocytes) > 1% indicates that a LEFT SHIFT is Present. Performed By: #### L 501.5200, L500.2500, L501.2300, L100.0100 ####[facility] [address] [place], [address] Lymphocytes/100 WBC (Bld) 20.0 % Normal 19-41 [facility] Comment on above: Performed By: #### L 501.5200, L500.2500, L501.2300, L100.0100 ####[facility] [address] [place], [address] MCH (RBC) [Entitic mass] 29.2 pg Normal 27.0-32.0 [facility] Comment on above: Performed By: #### L 501.5200, L500.2500, L501.2300, L100.0100 ####[facility] [address] [place], [address] MCHC (RBC) [Mass/Vol] 32.0 g/dL Normal 32-36 [facility] Comment on above: Performed By: #### L 501.5200, L500.2500, L501.2300, L100.0100 ####[facility] [address] [place], [address] MCV (RBC) [Entitic vol] 91.3 fL Normal 80-94 [facility] Comment on above: Performed By: #### L 501.5200, L500.2500, L501.2300, L100.0100 ####[facility] [address] [place], [address] Nucleated RBC (Bld) [#/Vol] 0 10*3/uL Normal 0-5 [facility] Comment on above: Performed By: #### L 501.5200, L500.2500, L501.2300, L100.0100 ####[facility] [address] [place], [address] Platelet mean volume (Bld) [Entitic vol] 10.5 fL Normal 6.2-12.0 [facility] Comment on above: Performed By: #### L 501.5200, L500.2500, L501.2300, L100.0100 ####[facility] [address] [place], [address] Platelets (Bld) [#/Vol] 108 10*3/uL Low 150-450 [facility] Comment on above: Performed By: #### L 501.5200, L500.2500, L501.2300, L100.0100 ####[facility] [address] [place], [address] RBC (Bld) [#/Vol] 2.64 10*6/uL Low 4.6-6.2 [facility] Comment on above: Performed By: #### L 501.5200, L500.2500, L501.2300, L100.0100 ####[facility] [address] [place], [address] RDW SD 61.1 fl High 35.1-43.9 [facility] Comment on above: Performed By: #### L 501.5200, L500.2500, L501.2300, L100.0100 ####[facility] [address] [place], [address] WBC (Bld) [#/Vol] 5.4 10*3/uL Normal 4.4-11.0 [facility] Comment on above: Performed By: #### L 501.5200, L500.2500, L501.2300, L100.0100 ####[facility] [address] [place], [address] Eosinophil percentageOrdered By: Yaritza Leo on 01-30-2025 Eosinophils/100 WBC (Bld) 7.0 % High 0-5 [facility] Comment on above: Performed By: #### L 501.5200, L500.2500, L501.2300, L100.0100 ####[facility] [address] [place], [address] Immature granulocytes/100 WB C Auto (Bld)Ordered By: Yaritza Leo on 01-30-2025 Immature granulocytes/100 WBC (Bld) 0.600 % 0.0-0.9 [facility] Magnesiumon 01-30-2025 Magnesium [Mass/Vol] 1.7 mg/dL Normal 1.5-2.2 [facility] Comment on above: Performed By: #### L 501.5200, L500.2500, L501.2300, L100.0100 ####[facility] [address] [place], [address] Magnesium measurement (mass/ volume)Ordered By: Yaritza Leo on 01-30-2025 Magnesium (Unsp spec) [Mass/Vol] 1.7 mg/dL 1.5-2.2 [facility] Monocyte percentageOrdered B y: Yaritza Leo on 01-30-2025 Monocytes/100 WBC (Bld) 18.5 % High 0-10 [facility] Comment on above: Performed By: #### L 501.5200, L500.2500, L501.2300, L100.0100 ####[facility] [address] [place], [address] Neutrophil percentageOrdered By: Yaritza Leo on 01-30-2025 Neutrophils/100 WBC (Bld) 53.2 % Normal 47-70 [facility] Comment on above: Performed By: #### L 501.5200, L500.2500, L501.2300, L100.0100 ####[facility] [address] [place], [address] Phosphoruson 01-30-2025 Phosphate [Mass/Vol] 2.7 mg/dL Normal 2.7-4.5 [facility] Comment on above: Performed By: #### L 501.5200, L500.2500, L501.2300, L100.0100 ####[facility] [address] [place], [address] Urine Cultureon 01-30-2025 URC Normal [facility] Comment on above: Performed By: #### M 100.2200 ####[facility] [address] [place], [address] Bedside Glucoseon 01-29-2025 FINGERSTICK GLU 174 mg/dL High 74-106 [facility] Comment on above: Result Comment: BRISA MOROCHO OF PATIENT CARE PER NURSING PROTOCOL Performed By: #### L 501.080 ####[facility] [address] [place], [address] FINGERSTICK GLU 163 mg/dL High 74-106 [facility] Comment on above: Result Comment: BRISA GEMENT OF PATIENT CARE PER NURSING PROTOCOL Performed By: #### L 501.080 ####[facility] [address] [place], [address] FINGERSTICK GLU 196 mg/dL High 74-106 [facility] Comment on above: Result Comment: BRISA GEMENT OF PATIENT CARE PER NURSING PROTOCOL Performed By: #### L 501.080 ####[facility] [address] [place], [address] FINGERSTICK GLU 237 mg/dL High -106 [facility] Comment on above: Result Comment: BRISA GEMENT OF PATIENT CARE PER NURSING PROTOCOL Performed By: #### L 501.080 ####[facility] [address] [place], [address] FINGERSTICK GLU 172 mg/dL High 74-106 [facility] Comment on above: Result Comment: BRISA GEMENT OF PATIENT CARE PER NURSING PROTOCOL Performed By: #### L 501.080 ####[facility] [address] [place], [address] Bilirubin, totalOrdered By: Boone Izquierdo on 01-29-2025 Bilirubin [Mass/Vol] 1.81 mg/dL High 0.00-1.30 [facility] CBC W/Diff, Automatedon 01-03 Absolute Lymph 0.83 X10 3/uL Normal 0.83-4.51 [facility] Comment on above: Performed By: #### L 500.4050, L100.0100 ####[facility] [address] [place], [address] Absolute Neut 3.0 X10 3/uL Normal 2.0-7.7 [facility] Comment on above: Performed By: #### L 500.4050, L100.0100 ####[facility] [address] [place], [address] Basophils/100 WBC (Bld) 0.8 % Normal 0-1 [facility] Comment on above: Performed By: #### L 500.4050, L100.0100 ####[facility] [address] [place], [address] Eosinophils/100 WBC (Bld) 5.3 % High 0-5 [facility] Comment on above: Performed By: #### L 500.4050, L100.0100 ####[facility] [address] [place], [address] Erythrocyte distribution width (RBC) [Ratio] 18.4 % High 11.6-14.6 [facility] Comment on above: Performed By: #### L 500.4050, L100.0100 ####[facility] [address] [place], [address] Hematocrit (Bld) [Volume fraction] 24.8 % Low 40-54 [facility] Comment on above: Performed By: #### L 500.4050, L100.0100 ####[facility] [address] [place], [address] Hemoglobin (Bld) [Mass/Vol] 8.1 g/dL Low 13.0-16.5 [facility] Comment on above: Performed By: #### L 500.4050, L100.0100 ####[facility] [address] [place], [address] IG% 0.800 Normal 0.0-0.9 [facility] Comment on above: Result Comment: IG% - Immature Granulocytes (promyelocytes, myelocytes andmetamyelocytes) > 1% indicates that a LEFT SHIFT is Present. Performed By: #### L 500.4050, L100.0100 ####[facility] [address] [place], [address] Lymphocytes/100 WBC (Bld) 17.1 % Low 19-41 [facility] Comment on above: Performed By: #### L 500.4050, L100.0100 ####[facility] [address] [place], [address] MCH (RBC) [Entitic mass] 29.6 pg Normal 27.0-32.0 [facility] Comment on above: Performed By: #### L 500.4050, L100.0100 ####[facility] [address] [place], [address] MCHC (RBC) [Mass/Vol] 32.7 g/dL Normal 32-36 [facility] Comment on above: Performed By: #### L 500.4050, L100.0100 ####[facility] [address] [place], [address] MCV (RBC) [Entitic vol] 90.5 fL Normal 80-94 [facility] Comment on above: Performed By: #### L 500.4050, L100.0100 ####[facility] [address] [place], [address] Monocytes/100 WBC (Bld) 15.2 % High 0-10 [facility] Comment on above: Performed By: #### L 500.4050, L100.0100 ####[facility] [address] [place], [address] Neutrophils/100 WBC (Bld) 60.8 % Normal 47-70 [facility] Comment on above: Performed By: #### L 500.4050, L100.0100 ####[facility] [address] [place], [address] Nucleated RBC (Bld) [#/Vol] 0 10*3/uL Normal 0-5 [facility] Comment on above: Performed By: #### L 500.4050, L100.0100 ####[facility] [address] [place], [address] Platelet mean volume (Bld) [Entitic vol] 11.6 fL Normal 6.2-12.0 [facility] Comment on above: Performed By: #### L 500.4050, L100.0100 ####[facility] [address] [place], [address] Platelets (Bld) [#/Vol] 120 10*3/uL Low 150-450 [facility] Comment on above: Performed By: #### L 500.4050, L100.0100 ####[facility] [address] [place], [address] RBC (Bld) [#/Vol] 2.74 10*6/uL Low 4.6-6.2 [facility] [place] Comment on above: Performed By: #### L 500.4050, L100.0100 ####[facility] [address] [place], [place], [address] RDW SD 60.7 fl High 35.1-43.9 [facility] Comment on above: Performed By: #### L 500.4050, L100.0100 ####[facility] [address] [place], [address] WBC (Bld) [#/Vol] 4.9 10*3/uL Normal 4.4-11.0 [facility] Comment on above: Performed By: #### L 500.4050, L100.0100 ####[facility] [address] [place], [address] Comprehensive Metabolic Prof [facility] 01-29-2025 Albumin [Mass/Vol] 2.3 g/dL Low 3.5-5.0 [facility] Comment on above: Performed By: #### L 500.4050, L100.0100 ####[facility] [address] [place], [address] Albumin/Globulin [Mass ratio] 0.8 {ratio} Low 0.9-2.4 [facility] Comment on above: Performed By: #### L 500.4050, L100.0100 ####[facility] [address] [place], [address] ALK PHOS 180 U/L High 40-129 [facility] Comment on above: Performed By: #### L 500.4050, L100.0100 ####[facility] [address] [place], [address] ALT [Catalytic activity/Vol] 30 U/L Normal <=46 [facility] Comment on above: Performed By: #### L 500.4050, L100.0100 ####[facility] [address] [place], [address] AST [Catalytic activity/Vol] 52 U/L High <=37 [facility] Comment on above: Performed By: #### L 500.4050, L100.0100 ####[facility] [address] [place], [address] Bilirubin [Mass/Vol] 1.81 mg/dL High 0.00-1.30 [facility] Comment on above: Performed By: #### L 500.4050, L100.0100 ####[facility] [address] [place], [address] BUN/CRE 11.6 RATIO Normal 10-20 [facility] Comment on above: Performed By: #### L 500.4050, L100.0100 ####[facility] [address] [place], [address] Calcium [Mass/Vol] 8.8 mg/dL Normal 7.6-11.0 [facility] Comment on above: Performed By: #### L 500.4050, L100.0100 ####[facility] [address] [place], [address] Chloride [Moles/Vol] 100 mmol/L Normal 98-108 [facility] Comment on above: Performed By: #### L 500.4050, L100.0100 ####[facility] [address] [place], [address] CO2 [Moles/Vol] 19.5 mmol/L Low 21.0-32.0 [facility] Comment on above: Performed By: #### L 500.4050, L100.0100 ####[facility] [address] [place], [address] Creatinine [Mass/Vol] 1.09 mg/dL Normal 0.70-1.20 [facility] Comment on above: Performed By: #### L 500.4050, L100.0100 ####[facility] [address] [place], [address] ECRCL 94.75 ml/min Normal 50-250 [facility] Comment on above: Performed By: #### L 500.4050, L100.0100 ####[facility] [address] [place], [address] GAP 14 Normal 5-15 [facility] Comment on above: Performed By: #### L 500.4050, L100.0100 ####[facility] [address] [place], [address] GFR/1.73 sq M.predicted among non-blacks MDRD (S/P/Bld) [Vol rate/Area] 79 mL/min/{1.73_m2} Normal >60 [facility] Comment on above: Result Comment: mL/m in/1.73m2 CKD-EPI Creatinine Equation (2020) Performed By: #### L 500.4050, L100.0100 ####[facility] [address] [place], [address] Globulin (S) [Mass/Vol] 3.1 g/dL Normal 2.2-4.2 [facility] Comment on above: Performed By: #### L 500.4050, L100.0100 ####[facility] [address] [place], [address] Glucose [Mass/Vol] 265 mg/dL High 70-99 [facility] Comment on above: Performed By: #### L 500.4050, L100.0100 ####[facility] [address] [place], [address] Potassium [Moles/Vol] 3.5 mmol/L Normal 3.3-5.1 [facility] Comment on above: Performed By: #### L 500.4050, L100.0100 ####[facility] [address] [place], [address] Sodium [Moles/Vol] 133 mmol/L Normal 133-145 [facility] Comment on above: Performed By: #### L 500.4050, L100.0100 ####[facility] [address] [place], [address] T PROT 5.4 g/dL Low 5.9-8.4 [facility] Comment on above: Performed By: #### L 500.4050, L100.0100 ####[facility] [address] [place], [address] Urea nitrogen [Mass/Vol] 13 mg/dL Normal 4-19 [facility] Comment on above: Performed By: #### L 500.4050, L100.0100 ####[facility] [address] [place], [address] No Panel InformationOrdered By: Boone Izquierdo on 01-29-2025 52 U/L High <38 [facility] Serum globulin measurementOr dered By: Boone Izquierdo on 01-29-2025 Globulin (S) [Mass/Vol] 3.1 g/dL 2.2-4.2 [facility] Serum or plasma alanine thomas otransferase (ALT) measurementOrdered By: Boone Izquierdo on 01-29-2025 ALT [Catalytic activity/Vol] 30 U/L <47 [facility] Serum or plasma albumin roosevelt urement (mass/volume)Ordered By: Boone Izquierdo on 01-29-2025 Albumin [Mass/Vol] 2.3 g/dL Low 3.5-5.0 [facility] Serum or plasma albumin/glob ulin mass ratioOrdered By: Boone Izquierdo on 01-29-2025 Albumin/Globulin [Mass ratio] 0.8 {ratio} Low 0.9-2.4 [facility] Serum or plasma alkaline kendrick sphatase measurementOrdered By: Boone Izquierdo on 01-29-2025 ALP [Catalytic activity/Vol] 180 U/L High 40-129 [facility] Total proteinOrdered By: Danita Izquierdo on 01-29-2025 Protein [Mass/Vol] 5.4 g/dL Low 5.9-8.4 [facility] Abdomen/Pelvis W IV Cont ONL Yon 01-28-2025 Abdomen/Pelvis W IV Cont ONLY Normal [facility] Absolute lymphocyte countOrd ered By: Danny Hutton on 01-28-2025 Lymphocytes Auto (Unsp spec) [#/Vol] 0.98 10*3/uL 0.83-4.51 [facility] Activated partial thrombopla stin time (aPTT) in platelet poor plasma by coagulation aOrdered By: Danny Hutton on 01-28-2025 aPTT Coag (PPP) [Time] 38.4 s High 24.1-36.2 [facility] Ammoniaon 01-28-2025 Ammonia (P) [Moles/Vol] 108.0 umol/L High 16-60 [facility] Comment on above: Order Comment: ROSIO Hampton. PREVIOUS SPECIMEN REJECTED DUE TOHEMOLYSIS. 01/28/25 0450 [address]. Performed By: #### L 503.5510 ####[facility] [address] [place], [place], [id number] Anion gap in Serum or Plasma Ordered By: Danny Hutton on 01-28-2025 Anion gap [Moles/Vol] 14 mmol/L - [facility] Automated lymphocyte count a s percentage of total leukocytesOrdered By: Danny Hutton on 01-28-2025 Lymphocytes/100 WBC Auto (Unsp spec) 18.8 % Low 19-41 [facility] BUN/creatinine ratioOrdered By: Dannyjersey Hutton on 01-28-2025 Urea nitrogen/Creatinine [Mass ratio] 12.8 mg/mg 10- [facility] Basic Metabolic Profile (BMP )on 01-28-2025 CO2 [Moles/Vol] 22.1 mmol/L Normal 21.0-32.0 [facility] Comment on above: Performed By: #### L 500.3400, L300.3900, L500.2500, L501.2450, L503.6005, L501.5200, L300.4310, L501.4021, L100.0100, L503.7505 ####[facility] [address] [place], [place], [id number] GAP 14 Normal - [facility] Comment on above: Performed By: #### L 500.3400, L300.3900, L500.2500, L501.2450, L503.6005, L501.5200, L300.4310, L501.4021, L100.0100, L503.7505 ####[facility] [address] [place], [place], [id number] Basophil percentageOrdered B y: Danny Hutton on 01-28-2025 Basophils/100 WBC (Bld) 0.8 % 0-1 [facility] Bedside Glucoseon 01-28-2025 FINGERSTICK GLU 102 mg/dL Normal 74-106 [facility] Comment on above: Result Comment: BRISA MOROCHO OF PATIENT CARE PER NURSING PROTOCOL Performed By: #### L 501.080 ####[facility] [address] [place], [place], [id number] FINGERSTICK GLU 96 mg/dL Normal 74-106 [facility] Comment on above: Result Comment: BRISA RASHAWN OF PATIENT CARE PER NURSING PROTOCOL Performed By: #### L 501.080 ####[facility] [address] [place], [place], [address] Bilirubin Test strip Ql (U)O rdered By: Danny Hutton on 01-28-2025 Bilirubin Ql (U) Negative Negative [facility] Bilirubin directOrdered By: Danny Hutton on 01-28-2025 Bilirubin.direct [Mass/Vol] 1.04 mg/dL High 0.00-0.30 [facility] Bilirubin, totalOrdered By: Danny Hutton on 01-28-2025 Bilirubin [Mass/Vol] 1.91 mg/dL High 0.00-1.30 [facility] Blood cultureOrdered By: Silvano Hutton on 01-28-2025 Bacteria identified Cx Nom (Bld) No growth in 5 days. [facility] Bacteria identified Cx Nom (Bld) No growth in 5 days. [facility] CBC W/Diff, Automatedon 01-03 Absolute Lymph 0.98 X10 3/uL Normal 0.83-4.51 [facility] Comment on above: Performed By: #### L 500.3400, L300.3900, L500.2500, L501.2450, L503.6005, L501.5200, L300.4310, L501.4021, L100.0100, L503.7505 ####[facility] [address] [place], [place], [address] Absolute Neut 3.0 X10 3/uL Normal 2.0-7.7 [facility] Comment on above: Performed By: #### L 500.3400, L300.3900, L500.2500, L501.2450, L503.6005, L501.5200, L300.4310, L501.4021, L100.0100, L503.7505 ####[facility] [address] [facility] [place], [address] Basophils/100 WBC (Bld) 0.8 % Normal 0-1 [facility] Comment on above: Performed By: #### L 500.3400, L300.3900, L500.2500, L501.2450, L503.6005, L501.5200, L300.4310, L501.4021, L100.0100, L503.7505 ####[facility] [address] [facility] [place], [address] Eosinophils/100 WBC (Bld) 4.6 % Normal 0-5 [facility] Comment on above: Performed By: #### L 500.3400, L300.3900, L500.2500, L501.2450, L503.6005, L501.5200, L300.4310, L501.4021, L100.0100, L503.7505 ####[facility] [address] [facility] [place], [address] Erythrocyte distribution width (RBC) [Ratio] 18.4 % High 11.6-14.6 [facility] Comment on above: Performed By: #### L 500.3400, L300.3900, L500.2500, L501.2450, L503.6005, L501.5200, L300.4310, L501.4021, L100.0100, L503.7505 ####[facility] [address] [facility] [place], [address] Hematocrit (Bld) [Volume fraction] 25.2 % Low 40-54 [facility] Comment on above: Performed By: #### L 500.3400, L300.3900, L500.2500, L501.2450, L503.6005, L501.5200, L300.4310, L501.4021, L100.0100, L503.7505 ####[facility] [address] [place], [address] Hemoglobin (Bld) [Mass/Vol] 8.3 g/dL Low 13.0-16.5 [facility] Comment on above: Performed By: #### L 500.3400, L300.3900, L500.2500, L501.2450, L503.6005, L501.5200, L300.4310, L501.4021, L100.0100, L503.7505 ####[facility] [address] [place], [address] IG% 1.300 High 0.0-0.9 [facility] Comment on above: Result Comment: IG% - Immature Granulocytes (promyelocytes, myelocytes andmetamyelocytes) > 1% indicates that a LEFT SHIFT is Present. Performed By: #### L 500.3400, L300.3900, L500.2500, L501.2450, L503.6005, L501.5200, L300.4310, L501.4021, L100.0100, L503.7505 ####[facility] [address] [place], [address] Lymphocytes/100 WBC (Bld) 18.8 % Low 19-41 [facility] Comment on above: Performed By: #### L 500.3400, L300.3900, L500.2500, L501.2450, L503.6005, L501.5200, L300.4310, L501.4021, L100.0100, L503.7505 ####[facility] [address] [place], [address] MCH (RBC) [Entitic mass] 29.4 pg Normal 27.0-32.0 [facility] Comment on above: Performed By: #### L 500.3400, L300.3900, L500.2500, L501.2450, L503.6005, L501.5200, L300.4310, L501.4021, L100.0100, L503.7505 ####[facility] [address] [place], [address] MCHC (RBC) [Mass/Vol] 32.9 g/dL Normal 32-36 [facility] Comment on above: Performed By: #### L 500.3400, L300.3900, L500.2500, L501.2450, L503.6005, L501.5200, L300.4310, L501.4021, L100.0100, L503.7505 ####[facility] [address] [facility] [place], [place], [phone] MCV (RBC) [Entitic vol] 89.4 fL Normal 80-94 [facility] Comment on above: Performed By: #### L 500.3400, L300.3900, L500.2500, L501.2450, L503.6005, L501.5200, L300.4310, L501.4021, L100.0100, L503.7505 ####[facility] [address] [facility] [place], [address] Monocytes/100 WBC (Bld) 16.7 % High 0-10 [facility] Comment on above: Performed By: #### L 500.3400, L300.3900, L500.2500, L501.2450, L503.6005, L501.5200, L300.4310, L501.4021, L100.0100, L503.7505 ####[facility] [address] [facility] [place], [address] Neutrophils/100 WBC (Bld) 57.8 % Normal 47-70 [facility] Comment on above: Performed By: #### L 500.3400, L300.3900, L500.2500, L501.2450, L503.6005, L501.5200, L300.4310, L501.4021, L100.0100, L503.7505 ####[facility] [address] [place], [address] Nucleated RBC (Bld) [#/Vol] 0 10*3/uL Normal 0-5 [facility] Comment on above: Performed By: #### L 500.3400, L300.3900, L500.2500, L501.2450, L503.6005, L501.5200, L300.4310, L501.4021, L100.0100, L503.7505 ####[facility] [address] [facility] [place], [address]( Platelet mean volume (Bld) [Entitic vol] 11.5 fL Normal 6.2-12.0 [facility] Comment on above: Performed By: #### L 500.3400, L300.3900, L500.2500, L501.2450, L503.6005, L501.5200, L300.4310, L501.4021, L100.0100, L503.7505 ####[facility] [address] [facility] [place], [address] Platelets (Bld) [#/Vol] 115 10*3/uL Low 150-450 [facility] Comment on above: Performed By: #### L 500.3400, L300.3900, L500.2500, L501.2450, L503.6005, L501.5200, L300.4310, L501.4021, L100.0100, L503.7505 ####[facility] [address] [place], [address] RBC (Bld) [#/Vol] 2.82 10*6/uL Low 4.6-6.2 [facility] Comment on above: Performed By: #### L 500.3400, L300.3900, L500.2500, L501.2450, L503.6005, L501.5200, L300.4310, L501.4021, L100.0100, L503.7505 ####[facility] [address] [place], [place], [address] RDW SD 60.7 fl High 35.1-43.9 [facility] Comment on above: Performed By: #### L 500.3400, L300.3900, L500.2500, L501.2450, L503.6005, L501.5200, L300.4310, L501.4021, L100.0100, L503.7505 ####[facility] [address] [facility] [address] [place], [place], [id number] WBC (Bld) [#/Vol] 5.2 10*3/uL Normal 4.4-11.0 [facility] Comment on above: Performed By: #### L 500.3400, L300.3900, L500.2500, L501.2450, L503.6005, L501.5200, L300.4310, L501.4021, L100.0100, L503.7505 ####[facility] [address] [place], [address] Carbon dioxide, total [Moles /volume] in Central venous bloodOrdered By: Danny Hutton on 01-28-2025 CO2 [Moles/Vol] 22.1 mmol/L 21.0-32.0 [facility] Chest PA and Lateralon 01-28 Chest PA and Lateral Normal [facility] Chloride assayOrdered By: Darin Hutton on 01-28-2025 Chloride [Moles/Vol] 95 mmol/L Low 98-108 [facility] Emergency Department Summary on 01-28-2025 Emergency Department Summary Normal [facility] Eosinophil percentageOrdered By: Danny Hutton on 01-28-2025 Eosinophils/100 WBC (Bld) 4.6 % 0-5 [facility] Erythrocyte distribution wid th ratioOrdered By: Danny Anni on 01-28-2025 Erythrocyte distribution width (RBC) [Ratio] 18.4 % High 11.6-14.6 [facility] Erythrocyte distribution wid th standard deviationOrdered By: [place] Avani Barker on 01-28-2025 Erythrocyte distribution width (RBC) [Ratio] 60.7 fl High 35.1-43.9 [facility] Glomerular filtration rate ( GFR) estimation/1.73 sq m using serum, plasma, or whole bOrdered By: Dannyjersey Hutton on 01-28-2025 GFR/1.73 sq M.predicted among non-blacks MDRD (S/P/Bld) [Vol rate/Area] 73 mL/min/{1.73_m2} >60 [facility] H AND P Exam - Hospitaliston 01-28-2025 H&P Exam - Hospitalist Normal [facility] Hematocrit Auto (Bld) [Volum e fraction]Ordered By: Danny Anni on 01-28-2025 Hematocrit (Bld) [Volume fraction] 25.2 % Low 40-54 [facility] Hemoglobin measurementOrdere d By: Danny Hutton on 01-28-2025 Hemoglobin (Bld) [Mass/Vol] 8.3 g/dL Low 13.0-16.5 [facility] Immature granulocytes/100 WB C Auto (Bld)Ordered By: Danny Anni on 01-28-2025 Immature granulocytes/100 WBC (Bld) 1.300 % High 0.0-0.9 [facility] Influenza virus A and B and SARS-CoV-2 (COVID-19) and Respiratory syncytial virus RNAOrdered By: Danny Anni on 01-28-2025 SARS-CoV-2 (COVID-19) RNA ANANTH+probe Ql (Unsp spec) [facility] Ketones Test strip Ql (U)Ord ered By: Danny Hutton on 01-28-2025 Ketones Ql (U) Negative Negative [facility] L499.0042on 01-28-2025 Trop T High Sen Normal <=22 [facility] Comment on above: Result Comment: Devonte goodwin via OM: Ordered Performed By: #### L 499.0042 ####[facility] [address] [place], [place], [phone] L501.4021on 01-28-2025 Trop T High Sen 13 ng/L Normal <=22 [facility] Comment on above: Performed By: #### L 500.3400, L300.3900, L500.2500, L501.2450, L503.6005, L501.5200, L300.4310, L501.4021, L100.0100, L503.7505 ####[facility] [address] [place], [address] L503.7505on 01-28-2025 Natriuretic peptide B (Bld) [Mass/Vol] 140 pg/mL Normal <=900 [facility] Comment on above: Result Comment: Hear t Failure Unlikely: < 300 pg/mLHeart Failure Likely< 50 Years: > 450 pg/mL50-75 Years: > 900 pg/mL>75 Years: > 1800 pg/mL Performed By: #### L 500.3400, L300.3900, L500.2500, L501.2450, L503.6005, L501.5200, L300.4310, L501.4021, L100.0100, L503.7505 ####[facility] [address] [place], [address] Lactic Acidon 01-28-2025 Lactate [Moles/Vol] 2.8 mmol/L Invalid Interpretation Code 0.0-2.0 [facility] Comment on above: Result Comment: Crit ical Result(s) Called at: 01/28/2025-09:07 by: Jennifer Marsh.??Results read back by same. Performed By: #### L 503.6005 ####[facility] [address] [place], [address] Lactate [Moles/Vol] 3.4 mmol/L Invalid Interpretation Code 0.0-2.0 [facility] Comment on above: Order Comment: Y Result Comment: Crit ical Result(s) Called at: 01/28/2025-04:24 by: Jennifer to Arianna Alva.??Results read back by same. Performed By: #### L 500.3400, L300.3900, L500.2500, L501.2450, L503.6005, L501.5200, L300.4310, L501.4021, L100.0100, L503.7505 ####[facility] [address] [place], [place], [id number] Lipaseon 01-28-2025 Lipase [Catalytic activity/Vol] 33 U/L Normal 13-75 [facility] Comment on above: Result Comment: Plea se note:LIPASE revised reference range effective 22.New Lipase methodology. Expected to produce lower valuesthan the previous assay method.NEW Reference Range: 13 - 75 U/L Performed By: #### L 500.3400, L300.3900, L500.2500, L501.2450, L503.6005, L501.5200, L300.4310, L501.4021, L100.0100, L503.7505 ####[facility] [address] [place], [place], [id number] Liver Profileon 01-28-2025 Albumin [Mass/Vol] 2.5 g/dL Low 3.5-5.0 [facility] Comment on above: Performed By: #### L 500.3400, L300.3900, L500.2500, L501.2450, L503.6005, L501.5200, L300.4310, L501.4021, L100.0100, L503.7505 ####[facility] [address] [place], [address] ALK PHOS 201 U/L High 40-129 [facility] Comment on above: Performed By: #### L 500.3400, L300.3900, L500.2500, L501.2450, L503.6005, L501.5200, L300.4310, L501.4021, L100.0100, L503.7505 ####[facility] [address] [place], [address] ALT [Catalytic activity/Vol] 31 U/L Normal <=46 [facility] Comment on above: Performed By: #### L 500.3400, L300.3900, L500.2500, L501.2450, L503.6005, L501.5200, L300.4310, L501.4021, L100.0100, L503.7505 ####[facility] [address] [place], [place], [phone]) AST [Catalytic activity/Vol] 58 U/L High <=37 [facility] Comment on above: Performed By: #### L 500.3400, L300.3900, L500.2500, L501.2450, L503.6005, L501.5200, L300.4310, L501.4021, L100.0100, L503.7505 ####[facility] [address] [place], [address] Bilirubin [Mass/Vol] 1.91 mg/dL High 0.00-1.30 [facility] Comment on above: Performed By: #### L 500.3400, L300.3900, L500.2500, L501.2450, L503.6005, L501.5200, L300.4310, L501.4021, L100.0100, L503.7505 ####[facility] [address] [place], [address] Bilirubin.direct [Mass/Vol] 1.04 mg/dL High 0.00-0.30 [facility] Comment on above: Performed By: #### L 500.3400, L300.3900, L500.2500, L501.2450, L503.6005, L501.5200, L300.4310, L501.4021, L100.0100, L503.7505 ####[facility] [address] [place], [address] Globulin (S) [Mass/Vol] 3.3 g/dL Normal 2.2-4.2 [facility] Comment on above: Performed By: #### L 500.3400, L300.3900, L500.2500, L501.2450, L503.6005, L501.5200, L300.4310, L501.4021, L100.0100, L503.7505 ####[facility] [address] [place], [address] T PROT 5.9 g/dL Normal 5.9-8.4 [facility] Comment on above: Performed By: #### L 500.3400, L300.3900, L500.2500, L501.2450, L503.6005, L501.5200, L300.4310, L501.4021, L100.0100, L503.7505 ####[facility] [address] [place], [address] M100.678on 01-28-2025 M100.678 SARS-CoV-2 (COVID 19 ) Negative INFLUENZA A Negative INFLUENZA B Negative RSV PCR Negative Normal [facility] Comment on above: Performed By: #### M 100.678 ####[facility] [address] [place], [place], [phone]) MCV (mean corpuscular volume ) determinationOrdered By: Danny Hutton on 01-28-2025 MCV (RBC) [Entitic vol] 89.4 fL 80-94 [facility] Magnesiumon 01-28-2025 Magnesium [Mass/Vol] 1.7 mg/dL Normal 1.5-2.2 [facility] Comment on above: Performed By: #### L 500.3400, L300.3900, L500.2500, L501.2450, L503.6005, L501.5200, L300.4310, L501.4021, L100.0100, L503.7505 ####[facility] [address] [place], [place], [phone] Magnesium measurement (mass/ volume)Ordered By: Danny Hutton on 01-28-2025 Magnesium (Unsp spec) [Mass/Vol] 1.7 mg/dL 1.5-2.2 [facility] Mean corpuscular hemoglobin (MCH) determinationOrdered By: Danny Hutton on 01-28-2025 MCH (RBC) [Entitic mass] 29.4 pg 27.0-32.0 [facility] Monocyte percentageOrdered B y: Danny Hutton on 01-28-2025 Monocytes/100 WBC (Bld) 16.7 % High 0-10 [facility] Mucus LM Ql (Urine sed)Order ed By: Danny Hutton on 01-28-2025 Mucus Ql (Urine sed) 0 SEEN /hpf [facility] Natriuretic peptide.B prohor prachi N-Terminal [Mass/volume] in Serum or PlasmaOrdered By: Danny Hutton on 01-28-2025 Natriuretic peptide.B prohormone N-Terminal [Mass/Vol] 140 pg/mL <900 [facility] Neutrophil percentageOrdered By: Danny Anni on 01-28-2025 Neutrophils/100 WBC (Bld) 57.8 % 47-70 [facility] Nitrite Test strip Ql (U)Ord ered By: Danny Hutton on 01-28-2025 Nitrite Ql (U) Negative Negative [facility] No Panel InformationOrdered By: [place] Anni on 01-28-2025 58 U/L High <38 [facility] Partial Thromboplast Timeon 06-27-2025 aPTT Coag (Bld) [Time] 38.4 s High 24.1-36.2 [facility] Comment on above: Performed By: #### L 500.3400, L300.3900, L500.2500, L501.2450, L503.6005, L501.5200, L300.4310, L501.4021, L100.0100, L503.7505 ####[facility] [id number] [place], [place], [id number] Platelet countOrdered By: Darin Hutton on 01-28-2025 Platelets (Bld) [#/Vol] 115 10*3/uL Low 150-450 [facility] Potassium measurement (mass/ volume)Or[facility]: [facility]25 Potassium (Unsp spec) [Mass/Vol] 3.4 mmol/L 3.3-5.1 [facility] Protein Test strip Ql (U)Ord ered By: Danny Hutton on 01-28-2025 Protein Ql (U) 100 mg/dl High Negative [facility] Prothrombin Time w/INRon INR Coag (PPP) [Relative time] 1.7 {INR} Normal [facility] Comment on above: Performed By: #### L 500.3400, L300.3900, L500.2500, L501.2450, L503.6005, L501.5200, L300.4310, L501.4021, L100.0100, L503.7505 ####[facility] [id number] [place], [place], [id number] PT Coag (PPP) [Time] 20.0 s High 11.7-14.9 [facility] Comment on above: Performed By: #### L 500.3400, L300.3900, L500.2500, L501.2450, L503.6005, L501.5200, L300.4310, L501.4021, L100.0100, L503.7505 ####[facility] [address] [place], [address] Prothrombin timeOrdered By: Danny Hutton on 01-28-2025 PT Coag (PPP) [Time] 20.0 s High 11.7-14.9 [facility] RBC Auto (Bld) [#/Vol]Ordere d By: Danny Hutton on 01-28-2025 RBC (Bld) [#/Vol] 2.82 10*6/uL Low 4.6-6.2 [facility] Serum creatinine measurement (mass/volume)Ordered By: Danny Hutton on 01-28-2025 Creatinine [Mass/Vol] 1.16 mg/dL 0.70-1.20 [facility] Serum globulin measurementOr dered By: Danny Hutton on 01-28-2025 Globulin (S) [Mass/Vol] 3.3 g/dL 2.2-4.2 [facility] Serum glucose measurement (m ass/volume)Ordered By: Danny Hutton on 01-28-2025 Glucose [Mass/Vol] 93 mg/dL 70-99 [facility] Serum or plasma alanine thomas otransferase (ALT) measurementOrdered By: Danny Hutton on 01-28-2025 ALT [Catalytic activity/Vol] 31 U/L <47 [facility] Serum or plasma albumin roosevelt urement (mass/volume)Ordered By: Danny Barker on 01-28-2025 Albumin [Mass/Vol] 2.5 g/dL Low 3.5-5.0 [facility] Serum or plasma alkaline kendrick sphatase measurementOrdered By: Danny Hutton on 01-28-2025 ALP [Catalytic activity/Vol] 201 U/L High 40-129 [facility] Serum or plasma calcium roosevelt urement (mass/volume)Ordered By: Danny Barker on 01-28-2025 Calcium [Mass/Vol] 8.9 mg/dL 7.6-11.0 [facility] Serum or plasma urea nitroge n measurement (mass/volume)Ordered By: Danny Hutton on 01-28-2025 Urea nitrogen [Mass/Vol] 15 mg/dL 4-19 [facility] Sodium levelOrdered By: Srinath Hutton on 01-28-2025 Sodium [Moles/Vol] 131 mmol/L Low 133-145 [facility] Squamous epithelial cells de tection in urine sediment by light microscopyOrdered By: Danny Hutton on 01-28-2025 Epithelial cells.squamous LM Ql (Urine sed) 0 SEEN /hpf 0-5 [facility] Total proteinOrdered By: Silvano Hutton on 01-28-2025 Protein [Mass/Vol] 5.9 g/dL 5.9-8.4 [facility] Troponin T.cardiac [Mass/vol ume] in Serum or Plasma by High sensitivity methodOrdered By: Danny Hutton on 01-28-2025 Troponin T.cardiac High sensitivity method [Mass/Vol] 13 ng/L <22 [facility] Urinalysis, Completeon 01-28 BACTERIA 1+ /hpf Normal None Seen [facility] Comment on above: Order Comment: COLOR OF URINE MAY AFFECT DIPSTICK RESULTS.UTILITY PORTER TO SPECIFY Performed By: #### L 400.0001 ####[facility] [address] [facility] [id number] RBC > 100 SEEN Normal 0-5 [facility] Comment on above: Order Comment: COLOR OF URINE MAY AFFECT DIPSTICK RESULTS.UTILITY PORTER TO SPECIFY Performed By: #### L 400.0001 ####[facility] [address] [facility] [address] WBC 10-25 SEEN Normal 0-5 [facility] Comment on above: Order Comment: COLOR OF URINE MAY AFFECT DIPSTICK RESULTS.UTILITY PORTER TO SPECIFY Performed By: #### L 400.0001 ####[facility] [address] [facility] [address] EPI,SQUAMOUS 0 SEEN Normal 0-5 [facility] Comment on above: Order Comment: COLOR OF URINE MAY AFFECT DIPSTICK RESULTS.UTILITY PORTER TO SPECIFY Performed By: #### L 400.0001 ####[facility] [address] [place], [place], [id number] Mucus Ql (Urine sed) 0 SEEN Normal [facility] Comment on above: Order Comment: COLOR OF URINE MAY AFFECT DIPSTICK RESULTS.UTILITY PORTER TO SPECIFY Performed By: #### L 400.0001 ####[facility] [address] [place], [place], [id number] Urine clarityOrdered By: Silvano Hutton on 01-28-2025 Clarity (U) Cloudy Clear [facility] Urine color determinationOrd ered By: Danny Hutton on 01-28-2025 Color (U) Lexis Yellow [facility] Urine cultureOrdered By: Silvano Hutton on 01-28-2025 Bacteria identified Cx Nom (U) Vancomycin Resist. E. 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 [facility] Urine glucose detectionOrder ed By: Danny Hutton on 01-28-2025 Glucose Ql (U) Normal mg/dl Normal [facility] Urine leukocyte esterase det ection by dipstickOrdered By: Danny Hutton on 01-28-2025 Leukocyte esterase Test strip Ql (U) 500 /ul High Negative [facility] Urine pHOrdered By: Danny Santiago on 01-28-2025 pH (U) 8.0 [pH] 5.0 - 8.0 [facility] Urine sediment bacteria coun t by microscopy (number/high power field)Ordered By: Danny Hutton on 01-28-2025 Bacteria LM.HPF (Urine sed) [#/Area] 1 /[HPF] None Seen [facility] Urine specific gravity measu rementOrdered By: Danny Hutton on 01-28-2025 Specific gravity (U) [Rel density] 1.015 1.002-1.030 [facility] Urine urobilinogen measureme ntOrdered By: Danny Hutton on 01-28-2025 Urobilinogen Ql (U) Normal mg/dl Normal [facility] Venous blood ammonia measure mentOrdered By: Danny Hutton on 01-28-2025 Ammonia (P) [Moles/Vol] 108.0 umol/L High 16-60 [facility] White blood cell (WBC) count Ordered By: Danny Hutton on 01-28-2025 WBC (Bld) [#/Vol] 5.2 10*3/uL 4.4-11.0 [facility] White blood cell countOrdere d By: Danny Hutton on 01-28-2025 White blood cell count 10-25 SEEN /hpf 0-5 [facility] Body Fluid Cell Count+Diffon 01-25-2025 MESOTHELIAL 7 Normal [facility] Comment on above: Order Comment: The r eference range and other method performancespecifications have not been established for this bodyfluid. The test must be integrated into the clinicalcontext for interpretation. Result Comment: AMENDED REPORT 01/25/25 1125 OTHER CELL/BF previously reported as: 7 % Performed By: #### L 200.0200, L350.1000, M100.2900, M100.4001, M100.2000 ####[facility] [address] [place], [place], [id number] Culture, Anaerobic Any Sourc iliana 01-24-2025 CUAN No growth in 5 days. Normal [facility] Comment on above: Performed By: #### L 200.0200, L350.1000, M100.2900, M100.4001, M100.2000 ####[facility] [address] [place], [place], [id number] Anion gap in Serum or Plasma Ordered By: Anurag Irene on 01-21-2025 Anion gap [Moles/Vol] 7 mmol/L 5-15 [facility] BUN/creatinine ratioOrdered By: Anurag Irene on 01-21-2025 Urea nitrogen/Creatinine [Mass ratio] 15.6 mg/mg 10-20 [facility] Bedside Glucoseon 01-21-2025 FINGERSTICK GLU 151 mg/dL High 74-106 [facility] Comment on above: Result Comment: BRISA GEMENT OF PATIENT CARE PER NURSING PROTOCOL Performed By: #### L 501.080 ####[facility] [address] [place], [address] FINGERSTICK GLU 199 mg/dL High 74-106 [facility] Comment on above: Result Comment: BRISA GEMENT OF PATIENT CARE PER NURSING PROTOCOL Performed By: #### L 501.080 ####[facility] [address] [place], [address] Bilirubin, totalOrdered By: Anurag Irene on 01-21-2025 Bilirubin [Mass/Vol] 1.52 mg/dL High 0.00-1.30 [facility] Carbon dioxide, total [Moles /volume] in Central venous bloodOrdered By: Anurag Irene on 01-21-2025 CO2 [Moles/Vol] 29.7 mmol/L 21.0-32.0 [facility] Chloride assayOrdered By: Francois Irene on 01-21-2025 Chloride [Moles/Vol] 96 mmol/L Low 98-108 [facility] Comprehensive Metabolic Prof ilon 01-21-2025 Albumin [Mass/Vol] 2.1 g/dL Low 3.5-5.0 [facility] Comment on above: Performed By: #### L 500.4050 ####[facility] [address] [place], [address] Albumin/Globulin [Mass ratio] 0.8 {ratio} Low 0.9-2.4 [facility] Comment on above: Performed By: #### L 500.4050 ####[facility] [address] [place], [address] ALK PHOS 204 U/L High 40-129 [facility] Comment on above: Performed By: #### L 500.4050 ####[facility] [address] [place], [address] ALT [Catalytic activity/Vol] 28 U/L Normal <=46 [facility] Comment on above: Performed By: #### L 500.4050 ####[facility] [address] [place], [address] AST [Catalytic activity/Vol] 48 U/L High <=37 [facility] Comment on above: Performed By: #### L 500.4050 ####[facility] [address] [place], [address] Bilirubin [Mass/Vol] 1.52 mg/dL High 0.00-1.30 [facility] Comment on above: Performed By: #### L 500.4050 ####[facility] [address] [place], [address] BUN/CRE 15.6 RATIO Normal 10-20 [facility] Comment on above: Performed By: #### L 500.4050 ####[facility] [address] [place], [address] Calcium [Mass/Vol] 8.1 mg/dL Normal 7.6-11.0 [facility] Comment on above: Performed By: #### L 500.4050 ####[facility] [address] [place], [address] Chloride [Moles/Vol] 96 mmol/L Low 98-108 [facility] Comment on above: Performed By: #### L 500.4050 ####[facility] [address] [place], [address] CO2 [Moles/Vol] 29.7 mmol/L Normal 21.0-32.0 [facility] Comment on above: Performed By: #### L 500.4050 ####[facility] [address] [place], [address] Creatinine [Mass/Vol] 0.86 mg/dL Normal 0.70-1.20 [facility] Comment on above: Performed By: #### L 500.4050 ####[facility] [address] [place], [address] ECRCL 114.50 ml/min Normal 50-250 [facility] Comment on above: Performed By: #### L 500.4050 ####[facility] [address] [place], [address] GAP 7 Normal 5-15 [facility] Comment on above: Performed By: #### L 500.4050 ####[facility] [address] [place], [address] GFR/1.73 sq M.predicted among non-blacks MDRD (S/P/Bld) [Vol rate/Area] 100 mL/min/{1.73_m2} Normal >60 [facility] Comment on above: Result Comment: mL/m in/1.73m2 CKD-EPI Creatinine Equation (2020) Performed By: #### L 500.4050 ####[facility] [address] [place], [address] Globulin (S) [Mass/Vol] 2.6 g/dL Normal 2.2-4.2 [facility] Comment on above: Performed By: #### L 500.4050 ####[facility] [address] [place], [address] Glucose [Mass/Vol] 199 mg/dL High 70-99 [facility] Comment on above: Performed By: #### L 500.4050 ####[facility] [address] [place], [address] Potassium [Moles/Vol] 3.1 mmol/L Low 3.3-5.1 [facility] Comment on above: Performed By: #### L 500.4050 ####[facility] [address] [place], [address] Sodium [Moles/Vol] 133 mmol/L Normal 133-145 [facility] Comment on above: Performed By: #### L 500.4050 ####[facility] [address] [place], [address] T PROT 4.7 g/dL Low 5.9-8.4 [facility] Comment on above: Performed By: #### L 500.4050 ####[facility] [address] [place], [place], [id number] Urea nitrogen [Mass/Vol] 13 mg/dL Normal 4-19 [facility] Comment on above: Performed By: #### L 500.4050 ####[facility] [address] [place], [place], [id number] Glomerular filtration rate ( GFR) estimation/1.73 sq m using serum, plasma, or whole bOrdered By: Anurag Irene on 01-21-2025 GFR/1.73 sq M.predicted among non-blacks MDRD (S/P/Bld) [Vol rate/Area] 100 mL/min/{1.73_m2} >60 [facility] Glucose [facility] deOrdered By: Anurag Irene on 01-21-2025 Glucose [Mass/Vol] 151 mg/dL High 74-106 [facility] No Panel InformationOrdered By: Anurag Irene on 01-21-2025 48 U/L High <38 [facility] Potassium measurement (mass/ volume)Ordered By: Anurag Irene on 01-21-2025 Potassium (Unsp spec) [Mass/Vol] 3.1 mmol/L Low 3.3-5.1 [facility] Serum creatinine measurement (mass/volume)Ordered By: Anurag Irene on 01-21-2025 Creatinine [Mass/Vol] 0.86 mg/dL 0.70-1.20 [facility] Serum globulin measurementOr dered By: Anurag Irene on 01-21-2025 Globulin (S) [Mass/Vol] 2.6 g/dL 2.2-4.2 [facility] Serum glucose measurement (m ass/volume)Ordered By: Anurag Irene on 01-21-2025 Glucose [Mass/Vol] 199 mg/dL High 70-99 [facility] Serum or plasma alanine thomas otransferase (ALT) measurementOrdered By: Anurag Irene on 01-21-2025 ALT [Catalytic activity/Vol] 28 U/L <47 [facility] Serum or plasma albumin roosevelt urement (mass/volume)Ordered By: Anurag Irene on 01-21-2025 Albumin [Mass/Vol] 2.1 g/dL Low 3.5-5.0 [facility] Serum or plasma albumin/glob ulin mass ratioOrdered By: Anurag Irene on 01-21-2025 Albumin/Globulin [Mass ratio] 0.8 {ratio} Low 0.9-2.4 [facility] Serum or plasma alkaline kendrick sphatase measurementOrdered By: Anurag Irene on 01-21-2025 ALP [Catalytic activity/Vol] 204 U/L High 40-129 [facility] Serum or plasma calcium roosevelt urement (mass/volume)Ordered By: Anurag Irene on 01-21-2025 Calcium [Mass/Vol] 8.1 mg/dL 7.6-11.0 [facility] Serum or plasma urea nitroge n measurement (mass/volume)Ordered By: Anurag Irene on 01-21-2025 Urea nitrogen [Mass/Vol] 13 mg/dL 4-19 [facility] Sodium levelOrdered By: Marni Irene on 01-21-2025 Sodium [Moles/Vol] 133 mmol/L 133-145 [facility] Total proteinOrdered By: [place] Irene on 01-21-2025 Protein [Mass/Vol] 4.7 g/dL Low 5.9-8.4 [facility] Absolute lymphocyte countOrd ered By: Anurag Irene on 01-20-2025 Lymphocytes Auto (Unsp spec) [#/Vol] 1.10 10*3/uL 0.83-4.51 [facility] Automated lymphocyte count a s percentage of total leukocytesOrdered By: Anurag Irene on 01-20-2025 Lymphocytes/100 WBC Auto (Unsp spec) 16.3 % Low 19-41 [facility] Basophil percentageOrdered B y: Anuragleisa Irene on 01-20-2025 Basophils/100 WBC (Bld) 0.6 % 0-1 [facility] Bedside Glucoseon 01-20-2025 FINGERSTICK GLU 206 mg/dL High 74-106 [facility] Comment on above: Result Comment: BRISA GEMENT OF PATIENT CARE PER NURSING PROTOCOL Performed By: #### L 501.080 ####[facility] [address] [place], [address] FINGERSTICK GLU 188 mg/dL High [facility]106 [facility] Comment on above: Result Comment: BRISA GEMENT OF PATIENT CARE PER NURSING PROTOCOL Performed By: #### L 501.080 ####[facility] [address] [place], [address] FINGERSTICK GLU 167 mg/dL High [facility]106 [facility] Comment on above: Result Comment: BRISA GEMENT OF PATIENT CARE PER NURSING PROTOCOL Performed By: #### L 501.080 ####[facility] [address] [place], [address] FINGERSTICK GLU 164 mg/dL High [address] [place] [address] Comment on above: Result Comment: BRISA GEMENT OF PATIENT CARE PER NURSING PROTOCOL Performed By: #### L 501.080 ####[facility] [address] [place], [address] Blood manual differential co mment interpretation (narrative result)Ordered By: Anurag Irene on 01-20-2025 Manual differential comment Marco Antonio (Bld) [Interp] SCANNED [facility] CBC W/Diff, Automatedon 01-02 PLT EST MOD DEC Normal ADEQ [facility] Comment on above: Performed By: #### L 100.0100 ####[facility] [address] [place], [address] SMEAR COMMENT SCANNED Normal [facility] Comment on above: Performed By: #### L 100.0100 ####[facility] [address] [place], [address] Comprehensive Metabolic Prof ilon 01-20-2025 Albumin [Mass/Vol] 2.0 g/dL Low 3.5-5.0 [facility] Comment on above: Performed By: #### L 500.4050 ####[facility] [address] [place], [address] Albumin/Globulin [Mass ratio] 0.7 {ratio} Low 0.9-2.4 [facility] Comment on above: Performed By: #### L 500.4050 ####[facility] [address] [place], [address] ALK PHOS 211 U/L High 40-129 [facility] Comment on above: Performed By: #### L 500.4050 ####[facility] [address] [place], [address] ALT [Catalytic activity/Vol] 32 U/L Normal <=46 [facility] Comment on above: Performed By: #### L 500.4050 ####[facility] [address] [place], [address] AST [Catalytic activity/Vol] 45 U/L High <=37 [facility] Comment on above: Performed By: #### L 500.4050 ####[facility] [address] [place], [address] Bilirubin [Mass/Vol] 1.61 mg/dL High 0.00-1.30 [facility] Comment on above: Performed By: #### L 500.4050 ####[facility] [address] [place], [address] BUN/CRE 13.4 RATIO Normal 10-20 [facility] Comment on above: Performed By: #### L 500.4050 ####[facility] [address] [place], [address] Calcium [Mass/Vol] 8.1 mg/dL Normal 7.6-11.0 [facility] Comment on above: Performed By: #### L 500.4050 ####[facility] [address] [place], [address] Chloride [Moles/Vol] 95 mmol/L Low 98-108 [facility] Comment on above: Performed By: #### L 500.4050 ####[facility] [address] [place], [address] CO2 [Moles/Vol] 30.3 mmol/L Normal 21.0-32.0 [facility] Comment on above: Performed By: #### L 500.4050 ####[facility] [address] [place], [address] Creatinine [Mass/Vol] 0.87 mg/dL Normal 0.70-1.20 [facility] Comment on above: Performed By: #### L 500.4050 ####[facility] [address] [place], [address] ECRCL 112.61 ml/min Normal 50-250 [facility] Comment on above: Performed By: #### L 500.4050 ####[facility] [address] [place], [address] GAP 7 Normal 5-15 [facility] Comment on above: Performed By: #### L 500.4050 ####[facility] [address] [place], [address] GFR/1.73 sq M.predicted among non-blacks MDRD (S/P/Bld) [Vol rate/Area] 100 mL/min/{1.73_m2} Normal >60 [facility] Comment on above: Result Comment: mL/m in/1.73m2 CKD-EPI Creatinine Equation (2020) Performed By: #### L 500.4050 ####[facility] [address] [place], [address] Globulin (S) [Mass/Vol] 2.9 g/dL Normal 2.2-4.2 [facility] Comment on above: Performed By: #### L 500.4050 ####[facility] [address] [place], [address] Glucose [Mass/Vol] 195 mg/dL High 70-99 [facility] Comment on above: Performed By: #### L 500.4050 ####[facility] [address] [place], [address] Potassium [Moles/Vol] 3.1 mmol/L Low 3.3-5.1 [facility] Comment on above: Performed By: #### L 500.4050 ####[facility] [address] [place], [address] Sodium [Moles/Vol] 133 mmol/L Normal 133-145 [facility] Comment on above: Performed By: #### L 500.4050 ####[facility] [address] [place], [address] T PROT 4.9 g/dL Low 5.9-8.4 [facility] Comment on above: Performed By: #### L 500.4050 ####[facility] [address] [place], [address] Urea nitrogen [Mass/Vol] 12 mg/dL Normal 4-19 [facility] Comment on above: Performed By: #### L 500.4050 ####[facility] [address] [place], [address] Eosinophil percentageOrdered By: Anurag Irene on 01-20-2025 Eosinophils/100 WBC (Bld) 6.5 % High 0-5 [facility] Erythrocyte distribution wid th ratioOrdered By: Anurag Irene on 01-20-2025 Erythrocyte distribution width (RBC) [Ratio] 18.3 % High 11.6-14.6 [facility] Erythrocyte distribution wid th standard deviationOrdered By: Anurag Irene on 01-20-2025 Erythrocyte distribution width (RBC) [Ratio] 58.5 fl High 35.1-43.9 [facility] Hematocrit Auto (Bld) [Volum e fraction]Ordered By: Anurag Irene on 01-20-2025 Hematocrit (Bld) [Volume fraction] 22.9 % Low 40-54 [facility] Hemoglobin measurementOrdere d By: Anurag Irene on 01-20-2025 Hemoglobin (Bld) [Mass/Vol] 7.7 g/dL Low 13.0-16.5 [facility] Immature granulocytes/100 WB C Auto (Bld)Ordered By: Anurag Irene on 01-20-2025 Immature granulocytes/100 WBC (Bld) 1.200 % High 0.0-0.9 [facility] MCV (mean corpuscular volume ) determinationOrdered By: Anurag Irene on 01-20-2025 MCV (RBC) [Entitic vol] 88.1 fL 80-94 [facility] Mean corpuscular hemoglobin (MCH) determinationOrdered By: Anurag Irene on 01-20-2025 MCH (RBC) [Entitic mass] 29.6 pg 27.0-32.0 [facility] Monocyte percentageOrdered B y: Anurag Irene on 01-20-2025 Monocytes/100 WBC (Bld) 11.9 % High 0-10 [facility] Neutrophil percentageOrdered By: Anurag Irene on 01-20-2025 Neutrophils/100 WBC (Bld) 63.5 % 47-70 [facility] Platelet countOrdered By: Francois Irene on 01-20-2025 Platelets (Bld) [#/Vol] 93 10*3/uL Low 150-450 [facility] Platelet estimateOrdered By: Anurag Irene on 01-20-2025 Platelets LM Ql (Bld) MOD DEC [facility] RBC Auto (Bld) [#/Vol]Ordere d By: Anurag Irene on 01-20-2025 RBC (Bld) [#/Vol] 2.60 10*6/uL Low 4.6-6.2 [facility] White blood cell (WBC) count Ordered By: Anurag Irene on 01-20-2025 WBC (Bld) [#/Vol] 6.8 10*3/uL 4.4-11.0 [facility] Activated partial thrombopla stin time (aPTT) in platelet poor plasma by coagulation aOrdered By: Rosendo Renee on 01-19-2025 aPTT Coag (PPP) [Time] 46.6 s High 24.1-36.2 [facility] Albumin, Serumon 01-19-2025 Albumin [Mass/Vol] 2.2 g/dL Low 3.5-5.0 [facility] Comment on above: Performed By: #### L 501.1800, L501.2300, L300.4310, L300.3900, L501.5200 ####[facility] [address] [place], [address] Bedside Glucoseon 01-19-2025 FINGERSTICK GLU 225 mg/dL High 74-106 [facility] Comment on above: Result Comment: BRISA GEMENT OF PATIENT CARE PER NURSING PROTOCOL Performed By: #### L 501.080 ####[facility] [address] [place], [address] FINGERSTICK GLU 268 mg/dL High [facility]106 [facility] Comment on above: Result Comment: BRISA GEMENT OF PATIENT CARE PER NURSING PROTOCOL Performed By: #### L 501.080 ####[facility] [address] [place], [address] FINGERSTICK GLU 187 mg/dL High -106 [facility] Comment on above: Result Comment: BRISA GEMENT OF PATIENT CARE PER NURSING PROTOCOL Performed By: #### L 501.080 ####[facility] [address] [place], [address] FINGERSTICK GLU 198 mg/dL High 74-106 [facility] Comment on above: Result Comment: BRISA MOROCHO OF PATIENT CARE PER NURSING PROTOCOL Performed By: #### L 501.080 ####[facility] [address] [place], [address] Bilirubin directOrdered By: Anurag Irene on 01-19-2025 Bilirubin.direct [Mass/Vol] 1.00 mg/dL High 0.00-0.30 [facility] Bilirubin, Directon 01-20-20 25 Bilirubin.direct [Mass/Vol] 1.00 mg/dL High 0.00-0.30 [facility] Comment on above: Performed By: #### L 501.4700, L100.0100, L500.4050 ####[facility] [address] [place], [address] Body Fluid Culton 01-19-2025 BFC Culture exhibits no growth. Normal [facility] Comment on above: Performed By: #### L 200.0200, L350.1000, M100.2900, M100.4001, M100.2000 ####[facility] [address] [place], [address] CBC W/Diff, Automatedon 01-02 Absolute Lymph 1.08 X10 3/uL Normal 0.83-4.51 [facility] Comment on above: Performed By: #### L 501.4700, L100.0100, L500.4050 ####[facility] [address] [place], [address] Absolute Neut 5.4 X10 3/uL Normal 2.0-7.7 [facility] Comment on above: Performed By: #### L 501.4700, L100.0100, L500.4050 ####[facility] [address] [place], [address] Basophils/100 WBC (Bld) 0.5 % Normal 0-1 [facility] Comment on above: Performed By: #### L 501.4700, L100.0100, L500.4050 ####[facility] [address] [place], [address] Eosinophils/100 WBC (Bld) 5.8 % High 0-5 [facility] Comment on above: Performed By: #### L 501.4700, L100.0100, L500.4050 ####[facility] [address] [place], [address] Erythrocyte distribution width (RBC) [Ratio] 18.6 % High 11.6-14.6 [facility] Comment on above: Performed By: #### L 501.4700, L100.0100, L500.4050 ####[facility] [address] [place], [address] Hematocrit (Bld) [Volume fraction] 22.3 % Low 40-54 [facility] Comment on above: Performed By: #### L 501.4700, L100.0100, L500.4050 ####[facility] [address] [place], [address] Hemoglobin (Bld) [Mass/Vol] 7.6 g/dL Low 13.0-16.5 [facility] Comment on above: Performed By: #### L 501.4700, L100.0100, L500.4050 ####[facility] [address] [place], [address] IG% 1.400 High 0.0-0.9 [facility] Comment on above: Result Comment: IG% - Immature Granulocytes (promyelocytes, myelocytes andmetamyelocytes) > 1% indicates that a LEFT SHIFT is Present. Performed By: #### L 501.4700, L100.0100, L500.4050 ####[facility] [address] [place], [address] Lymphocytes/100 WBC (Bld) 13.6 % Low 19-41 [facility] Comment on above: Performed By: #### L 501.4700, L100.0100, L500.4050 ####[facility] [address] [place], [address] MCH (RBC) [Entitic mass] 30.3 pg Normal 27.0-32.0 [facility] Comment on above: Performed By: #### L 501.4700, L100.0100, L500.4050 ####[facility] [address] [place], [address] MCHC (RBC) [Mass/Vol] 34.1 g/dL Normal 32-36 [facility] Comment on above: Performed By: #### L 501.4700, L100.0100, L500.4050 ####[facility] [address] [place], [address] MCV (RBC) [Entitic vol] 88.8 fL Normal 80-94 [facility] Comment on above: Performed By: #### L 501.4700, L100.0100, L500.4050 ####[facility] [address] [place], [address] Monocytes/100 WBC (Bld) 11.0 % High 0-10 [facility] Comment on above: Performed By: #### L 501.4700, L100.0100, L500.4050 ####[facility] [address] [place], [address] Neutrophils/100 WBC (Bld) 67.7 % Normal 47-70 [facility] Comment on above: Performed By: #### L 501.4700, L100.0100, L500.4050 ####[facility] [address] [place], [address] Nucleated RBC (Bld) [#/Vol] 0 10*3/uL Normal 0-5 [facility] Comment on above: Performed By: #### L 501.4700, L100.0100, L500.4050 ####[facility] [address] [place], [address] Platelet mean volume (Bld) [Entitic vol] 11.1 fL Normal 6.2-12.0 [facility] Comment on above: Performed By: #### L 501.4700, L100.0100, L500.4050 ####[facility] [address] [place], [address] Platelets (Bld) [#/Vol] 107 10*3/uL Low 150-450 [facility] Comment on above: Performed By: #### L 501.4700, L100.0100, L500.4050 ####[facility] [address] [place], [address] RBC (Bld) [#/Vol] 2.51 10*6/uL Low 4.6-6.2 [facility] Comment on above: Performed By: #### L 501.4700, L100.0100, L500.4050 ####[facility] [address] [place], [address] RDW SD 59.0 fl High 35.1-43.9 [facility] Comment on above: Performed By: #### L 501.4700, L100.0100, L500.4050 ####[facility] [address] [place], [address] WBC (Bld) [#/Vol] 7.9 10*3/uL Normal 4.4-11.0 [facility] Comment on above: Performed By: #### L 501.4700, L100.0100, L500.4050 ####[facility] [address] [place], [address] Comprehensive Metabolic Prof [facility] 01-19-2025 Albumin [Mass/Vol] 2.2 g/dL Low 3.5-5.0 [facility] Comment on above: Performed By: #### L 501.4700, L100.0100, L500.4050 ####[facility] [address] [place], [address] Albumin/Globulin [Mass ratio] 0.9 {ratio} Normal 0.9-2.4 [facility] Comment on above: Performed By: #### L 501.4700, L100.0100, L500.4050 ####[facility] [address] [place], [address] ALK PHOS 225 U/L High 40-129 [facility] Comment on above: Performed By: #### L 501.4700, L100.0100, L500.4050 ####[facility] [address] [place], [address] ALT [Catalytic activity/Vol] 34 U/L Normal <=46 [facility] Comment on above: Performed By: #### L 501.4700, L100.0100, L500.4050 ####[facility] [address] [place], [address] AST [Catalytic activity/Vol] 52 U/L High <=37 [facility] Comment on above: Performed By: #### L 501.4700, L100.0100, L500.4050 ####[facility] [address] [place], [address] Bilirubin [Mass/Vol] 1.70 mg/dL High 0.00-1.30 [facility] Comment on above: Performed By: #### L 501.4700, L100.0100, L500.4050 ####[facility] [address] [place], [address] BUN/CRE 10.4 RATIO Normal 10-20 [facility] Comment on above: Performed By: #### L 501.4700, L100.0100, L500.4050 ####[facility] [address] [place], [address] Calcium [Mass/Vol] 7.9 mg/dL Normal 7.6-11.0 [facility] Comment on above: Performed By: #### L 501.4700, L100.0100, L500.4050 ####[facility] [address] [place], [address] Chloride [Moles/Vol] 94 mmol/L Low 98-108 [facility] Comment on above: Performed By: #### L 501.4700, L100.0100, L500.4050 ####[facility] [address] [place], [address] CO2 [Moles/Vol] 30.7 mmol/L Normal 21.0-32.0 [facility] Comment on above: Performed By: #### L 501.4700, L100.0100, L500.4050 ####[facility] [address] [place], [address] Creatinine [Mass/Vol] 1.05 mg/dL Normal 0.70-1.20 [facility] Comment on above: Performed By: #### L 501.4700, L100.0100, L500.4050 ####[facility] [address] [place], [address] ECRCL 93.35 ml/min Normal 50-250 [facility] Comment on above: Performed By: #### L 501.4700, L100.0100, L500.4050 ####[facility] [address] [place], [address] GAP 7 Normal 5-15 [facility] Comment on above: Performed By: #### L 501.4700, L100.0100, L500.4050 ####[facility] [address] [place], [address] GFR/1.73 sq M.predicted among non-blacks MDRD (S/P/Bld) [Vol rate/Area] 82 mL/min/{1.73_m2} Normal >60 [facility] Comment on above: Result Comment: mL/m in/1.73m2 CKD-EPI Creatinine Equation (2020) Performed By: #### L 501.4700, L100.0100, L500.4050 ####[facility] [address] [place], [address] Globulin (S) [Mass/Vol] 2.6 g/dL Normal 2.2-4.2 [facility] Comment on above: Performed By: #### L 501.4700, L100.0100, L500.4050 ####[facility] [address] [place], [address] Glucose [Mass/Vol] 220 mg/dL High 70-99 [facility] Comment on above: Performed By: #### L 501.4700, L100.0100, L500.4050 ####[facility] [address] [place], [address] Potassium [Moles/Vol] 3.0 mmol/L Low 3.3-5.1 [facility] Comment on above: Performed By: #### L 501.4700, L100.0100, L500.4050 ####[facility] [address] [place], [address] Sodium [Moles/Vol] 132 mmol/L Low 133-145 [facility] Comment on above: Performed By: #### L 501.4700, L100.0100, L500.4050 ####[facility] [address] [place], [address] T PROT 4.8 g/dL Low 5.9-8.4 [facility] Comment on above: Performed By: #### L 501.4700, L100.0100, L500.4050 ####[facility] [address] [place], [address] Urea nitrogen [Mass/Vol] 11 mg/dL Normal 4-19 [facility] Comment on above: Performed By: #### L 501.4700, L100.0100, L500.4050 ####[facility] [address] [place], [address] Gram Stainon 01-19-2025 GS Centrifuged Specimen ? Culture performed on centrifuged specimen Gram Stain No organisms seen No cells seen Normal [facility] Comment on above: Performed By: #### L 200.0200, L350.1000, M100.2900, M100.4001, M100.2000 ####[facility] [address] [place], [address] Liver Profileon 01-19-2025 ALB Normal 3.5-5.0 [facility] Comment on above: Result Comment: MOVE D TO DIFFERENT REQ- SEE C50 Performed By: #### L 500.3400 ####[facility] [address] [place], [address] ALK PHOS Normal 40-129 [facility] Comment on above: Result Comment: MOVE D TO DIFFERENT REQ- SEE C50 Performed By: #### L 500.3400 ####[facility] [address] [place], [address] ALT Normal <=46 [facility] Comment on above: Result Comment: MOVE D TO DIFFERENT REQ- SEE C50 Performed By: #### L 500.3400 ####[facility] [address] [place], [address] AST Normal <=37 [facility] Comment on above: Result Comment: MOVE D TO DIFFERENT REQ- SEE C50 Performed By: #### L 500.3400 ####[facility] [address] [place], [address] D BILI Normal 0.00-0.30 [facility] Comment on above: Result Comment: MOVE D TO DIFFERENT REQ- SEE C50 Performed By: #### L 500.3400 ####[facility] [address] [place], [address] T BILI Normal 0.00-1.30 [facility] Comment on above: Result Comment: MOVE D TO DIFFERENT REQ- SEE C50 Performed By: #### L 500.3400 ####[facility] [address] [place], [address] T PROT Normal 5.9-8.4 [facility] Comment on above: Result Comment: MOVE D TO DIFFERENT REQ- SEE C50 Performed By: #### L 500.3400 ####[facility] [address] [place], [address] Magnesiumon 01-19-2025 Magnesium [Mass/Vol] 1.7 mg/dL Normal 1.5-2.2 [facility] Comment on above: Performed By: #### L 501.1800, L501.2300, L300.4310, L300.3900, L501.5200 ####[facility] [address] [place], [address] Magnesium measurement (mass/ volume)Ordered By: Rosendo Renee on 01-19-2025 Magnesium (Unsp spec) [Mass/Vol] 1.7 mg/dL 1.5-2.2 [facility] Partial Thromboplast Timeon 01-19-2025 aPTT Coag (Bld) [Time] 46.6 s High 24.1-36.2 [facility] Comment on above: Performed By: #### L 501.1800, L501.2300, L300.4310, L300.3900, L501.5200 ####[facility] [address] [place], [address] Phosphoruson 01-19-2025 Phosphate [Mass/Vol] 3.5 mg/dL Normal 2.7-4.5 [facility] Comment on above: Performed By: #### L 501.1800, L501.2300, L300.4310, L300.3900, L501.5200 ####[facility] [address] [place], [address] Prothrombin Time w/INRon INR Coag (PPP) [Relative time] 2.0 {INR} Normal [facility] Comment on above: Performed By: #### L 501.1800, L501.2300, L300.4310, L300.3900, L501.5200 ####[facility] [address] [place], [address] PT Coag (PPP) [Time] 22.8 s High 11.7-14.9 [facility] Comment on above: Performed By: #### L 501.1800, L501.2300, L300.4310, L300.3900, L501.5200 ####[facility] [address] [place], [address] Prothrombin timeOrdered By: Rosendo Renee on 01-19-2025 PT Coag (PPP) [Time] 22.8 s High 11.7-14.9 [facility] Abdomen Limitedon 01-18-2025 Abdomen Limited Normal [facility] Anaerobic cultureOrdered By: Anurag Irene on 01-18-2025 Bacteria identified Anaer cx Nom (Unsp spec) No growth in 5 days. [facility] Basic Metabolic Profile (BMP )on 01-18-2025 BUN/CRE 9.8 RATIO Low 10-20 [facility] Comment on above: Performed By: #### L 500.2500 ####[facility] [address] [place], [address] Calcium [Mass/Vol] 7.7 mg/dL Normal 7.6-11.0 [facility] Comment on above: Performed By: #### L 500.2500 ####[facility] [address] [place], [address] Chloride [Moles/Vol] 92 mmol/L Low 98-108 [facility] Comment on above: Performed By: #### L 500.2500 ####[facility] [address] [place], [address] CO2 [Moles/Vol] 31.5 mmol/L Normal 21.0-32.0 [facility] Comment on above: Performed By: #### L 500.2500 ####[facility] [address] [place], [address] Creatinine [Mass/Vol] 0.85 mg/dL Normal 0.70-1.20 [facility] Comment on above: Performed By: #### L 500.2500 ####[facility] [address] [place], [address] ECRCL 116.49 ml/min Normal 50-250 [facility] Comment on above: Performed By: #### L 500.2500 ####[facility] [address] [place], [address] GAP 8 Normal 5-15 [facility] Comment on above: Performed By: #### L 500.2500 ####[facility] [address] [place], [address] GFR/1.73 sq M.predicted among non-blacks MDRD (S/P/Bld) [Vol rate/Area] 101 mL/min/{1.73_m2} Normal >60 [facility] Comment on above: Result Comment: mL/m in/1.73m2 CKD-EPI Creatinine Equation (2020) Performed By: #### L 500.2500 ####[facility] [address] [place], [address] Glucose [Mass/Vol] 228 mg/dL High 70-99 [facility] Comment on above: Performed By: #### L 500.2500 ####[facility] [address] [place], [address] Potassium [Moles/Vol] 2.8 mmol/L Low 3.3-5.1 [facility] Comment on above: Performed By: #### L 500.2500 ####[facility] [address] [place], [address] Sodium [Moles/Vol] 132 mmol/L Low 133-145 [facility] Comment on above: Performed By: #### L 500.2500 ####[facility] [address] [place], [address] Urea nitrogen [Mass/Vol] 8 mg/dL Normal 4-19 [facility] Comment on above: Performed By: #### L 500.2500 ####[facility] [address] [place], [address] Bedside Glucoseon 01-18-2025 FINGERSTICK GLU 250 mg/dL High 74-106 [facility] Comment on above: Result Comment: BRISA GEMENT OF PATIENT CARE PER NURSING PROTOCOL Performed By: #### L 501.080 ####[facility] [address] [place], [address] FINGERSTICK GLU 158 mg/dL High 74-106 [facility] Comment on above: Result Comment: BRISA GEMENT OF PATIENT CARE PER NURSING PROTOCOL Performed By: #### L 501.080 ####[facility] [address] [place], [address] FINGERSTICK GLU 142 mg/dL High 74-106 [facility] Comment on above: Result Comment: BRISA GEMENT OF PATIENT CARE PER NURSING PROTOCOL Performed By: #### L 501.080 ####[facility] [address] [place], [address] FINGERSTICK GLU 171 mg/dL High 74-106 [facility] Comment on above: Result Comment: BRISA MOROCHO OF PATIENT CARE PER NURSING PROTOCOL Performed By: #### L 501.080 ####[facility] [address] [place], [place], [address] Body fluid appearance (nomin al result)Ordered By: Anurag Irene on 01-18-2025 Appearance (Body fld) CLEAR [facility] Body fluid color determinati onOrdered By: Anurag Irene on 01-18-2025 Color (Body fld) LT YEL [facility] Body fluid cultureOrdered By : Anurag Irene on 01-18-2025 Microbial culture, body fluid Culture exhibits no growth. [facility] Body fluid leukocytes count (number/volume)Ordered By: Anurag Irene on 01-18-2025 WBC (Body fld) [#/Vol] 0.143 10*3/uL [facility] Body fluid lymphocytes/100 l eukocytesOrdered By: Anurag Irene on 01-18-2025 Lymphocytes/100 WBC (Body fld) 24 % [facility] Body fluid macrophage countO rdered By: Anurag Irene on 01-18-2025 Macrophages (Body fld) [#/Vol] 46 % [facility] Body fluid mesothelial cell percentageOrdered By: Anurag Irene on 01-18-2025 Mesothelial cells/100 WBC (Body fld) 7 % [facility] Body fluid mononuclear cell percentageOrdered By: Anurag Irene on 01-18-2025 Mononuclear cells/100 WBC (Body fld) 75.6 % [facility] Body fluid other cell count as percentage of leukocytesOrdered By: Anurag Irene on 01-18-2025 Other cells/100 WBC (Body fld) 7 % [facility] Other cells/100 WBC (Body fld) KINESIOLOGY PROFESSOR [facility] Body fluid protein measureme nt (mass/volume)Ordered By: Anurag Irene on 01-18-2025 Protein (Body fld) [Mass/Vol] 0.3 g/dL Not Establ. [facility] Body fluid segmented neutrop hils count (number/volume)Ordered By: Anurag Irene on 01-18-2025 Segmented neutrophils (Body fld) [#/Vol] 20 % [facility] Body fluid total cell countO rdered By: Anurag Irene on 01-18-2025 Cells Counted Total (Body fld) [#] 0.172 10^3/ul [facility] CBC W/Diff, Automatedon 01-02 Absolute Lymph 1.13 X10 3/uL Normal 0.83-4.51 [facility] Comment on above: Performed By: #### L 100.0100 ####[facility] [address] [place], [address] Absolute Neut 5.5 X10 3/uL Normal 2.0-7.7 [facility] Comment on above: Performed By: #### L 100.0100 ####[facility] [address] [place], [address] Basophils/100 WBC (Bld) 0.6 % Normal 0-1 [facility] Comment on above: Performed By: #### L 100.0100 ####[facility] [address] [place], [address] Eosinophils/100 WBC (Bld) 6.1 % High 0-5 [facility] Comment on above: Performed By: #### L 100.0100 ####[facility] [address] [place], [address] Erythrocyte distribution width (RBC) [Ratio] 18.7 % High 11.6-14.6 [facility] Comment on above: Performed By: #### L 100.0100 ####[facility] [address] [place], [address] Hematocrit (Bld) [Volume fraction] 22.6 % Low 40-54 [facility] Comment on above: Performed By: #### L 100.0100 ####[facility] [address] [place], [address] Hemoglobin (Bld) [Mass/Vol] 7.7 g/dL Low 13.0-16.5 [facility] Comment on above: Performed By: #### L 100.0100 ####[facility] [address] [place], [address] IG% 1.200 High 0.0-0.9 [facility] Comment on above: Result Comment: IG% - Immature Granulocytes (promyelocytes, myelocytes andmetamyelocytes) > 1% indicates that a LEFT SHIFT is Present. Performed By: #### L 100.0100 ####[facility] [address] [place], [address] Lymphocytes/100 WBC (Bld) 14.0 % Low 19-41 [facility] Comment on above: Performed By: #### L 100.0100 ####[facility] [address] [place], [address] MCH (RBC) [Entitic mass] 30.1 pg Normal 27.0-32.0 [facility] Comment on above: Performed By: #### L 100.0100 ####[facility] [address] [place], [address] MCHC (RBC) [Mass/Vol] 34.1 g/dL Normal 32-36 [facility] Comment on above: Performed By: #### L 100.0100 ####[facility] [address] [place], [address] MCV (RBC) [Entitic vol] 88.3 fL Normal 80-94 [facility] Comment on above: Performed By: #### L 100.0100 ####[facility] [address] [place], [address] Monocytes/100 WBC (Bld) 10.0 % Normal 0-10 [facility] Comment on above: Performed By: #### L 100.0100 ####[facility] [address] [place], [address] Neutrophils/100 WBC (Bld) 68.1 % Normal 47-70 [facility] Comment on above: Performed By: #### L 100.0100 ####[facility] [address] [place], [address] Nucleated RBC (Bld) [#/Vol] 0 10*3/uL Normal 0-5 [facility] Comment on above: Performed By: #### L 100.0100 ####[facility] [address] [place], [address] Platelet mean volume (Bld) [Entitic vol] 10.5 fL Normal 6.2-12.0 [facility] Comment on above: Performed By: #### L 100.0100 ####[facility] [address] [place], [address] Platelets (Bld) [#/Vol] 107 10*3/uL Low 150-450 [facility] Comment on above: Performed By: #### L 100.0100 ####[facility] [address] [place], [address] RBC (Bld) [#/Vol] 2.56 10*6/uL Low 4.6-6.2 [facility] Comment on above: Performed By: #### L 100.0100 ####[facility] [address] [place], [address] RDW SD 58.9 fl High 35.1-43.9 [facility] Comment on above: Performed By: #### L 100.0100 ####[facility] [address] [place], [address] WBC (Bld) [#/Vol] 8.1 10*3/uL Normal 4.4-11.0 [facility] Comment on above: Performed By: #### L 100.0100 ####[facility] [address] [place], [address] Cytology report of Body flui d Cyto stainOrdered By: Anurag Irene on 01-18-2025 Cytology report Cyto stain Doc (Body fld) SEE PATHOLOGY REPORT [facility] Cytology, Body Fluid / CSFon 01-18-2025 CYTOLOGY,BF/CSF SEE PATHOLOGY REPORT Normal [facility] Comment on above: Result Comment: Spec imen submitted to Anatomical Pathology Department fortesting. Performed By: #### L 200.0200, L350.1000, M100.2900, M100.4001, M100.2000 ####[facility] [address] [place], [address] Glucose, Body Fluidon 2024 GLUC, BODY FLD 154 mg/dL Normal Not Establ. [facility] Comment on above: Performed By: #### L 503.0100, L503.0300 ####[facility] [address] [place], [address] Gram stainOrdered By: Anuradha Irene on 01-18-2025 Microscopic observation Gram stain Nom (Unsp spec) [facility] Magnesiumon 01-18-2025 Magnesium [Mass/Vol] 1.6 mg/dL Normal 1.5-2.2 [facility] Comment on above: Performed By: #### L 501.2300, L501.5200 ####[facility] [address] [place], [address] Monocyte detectionOrdered By : Anurag Irene on 01-18-2025 Monocytes/100 WBC (Bld) 3 % [facility] No Panel InformationOrdered By: Anurag Irene on 01-18-2025 218 /mm3 [facility] SEE COMMENT [facility] Paracentesis with USon 01-18 Paracentesis with US Normal [facility] Pathologist interpretation o f Body fluid testsOrdered By: Anurag Irene on 01-18-2025 Pathologist interpretation (Body fld) [Interp] Reviewed [facility] Phosphoruson 01-18-2025 Phosphate [Mass/Vol] 3.7 mg/dL Normal 2.7-4.5 [facility] Comment on above: Performed By: #### L 501.2300, L501.5200 ####[facility] [address] [place], [address] Protein, Body Fluidon 2024 Protein [Mass/Vol] 0.3 g/dL Normal Not Establ. [facility] Comment on above: Performed By: #### L 503.0100, L503.0300 ####[facility] [address] [place], [address] Prothrombin Time w/INRon INR Coag (PPP) [Relative time] 2.0 {INR} Normal [facility] Comment on above: Performed By: #### L 300.3900 ####[facility] [address] [place], [address] PT Coag (PPP) [Time] 22.9 s High 11.7-14.9 [facility] Comment on above: Performed By: #### L 300.3900 ####[facility] [address] [place], [address] Special Stain Group IIon Special Stain Group II Normal [facility] Comment on above: Performed By: #### P SSII ####[facility] [address] [place], [address] Specimen source identificati on of body fluidOrdered By: Anurag Irene on 01-18-2025 Specimen source Nom (Body fld) PERITONEAL FLUID [facility] Stool Occult Blood iFOBon STOB Negative Normal [facility] Comment on above: Performed By: #### M 100.7900 ####[facility] [address] [place], [address] Stool gastrointestinal hemog lobin detection by immunologic methodOrdered By: Cielo Tovar on 01-18-2025 Lower GI hemoglobin IA Ql (Stl) [facility] Bedside Glucoseon 01-17-2025 FINGERSTICK GLU 180 mg/dL High 74-106 [facility] Comment on above: Result Comment: BRISA GEMENT OF PATIENT CARE PER NURSING PROTOCOL Performed By: #### L 501.080 ####[facility] [address] [place], [address] FINGERSTICK GLU 236 mg/dL High 74-106 [facility] Comment on above: Result Comment: BRISA GEMENT OF PATIENT CARE PER NURSING PROTOCOL Performed By: #### L 501.080 ####[facility] [address] [place], [address] FINGERSTICK GLU 141 mg/dL High 74-106 [facility] Comment on above: Result Comment: BRISA GEMENT OF PATIENT CARE PER NURSING PROTOCOL Performed By: #### L 501.080 ####[facility] [address] [place], [address] FINGERSTICK GLU 173 mg/dL High 74-106 [facility] Comment on above: Result Comment: BRISA GEMENT OF PATIENT CARE PER NURSING PROTOCOL Performed By: #### L 501.080 ####[facility] [address] [place], [address] CBC W/Diff, Automatedon - Absolute Lymph 1.09 X10 3/uL Normal 0.83-4.51 [facility] Comment on above: Performed By: #### L 100.0100 ####[facility] [address] [place], [address] Absolute Neut 5.7 X10 3/uL Normal 2.0-7.7 [facility] Comment on above: Performed By: #### L 100.0100 ####[facility] [address] [place], [address] Basophils/100 WBC (Bld) 0.5 % Normal 0-1 [facility] Comment on above: Performed By: #### L 100.0100 ####[facility] [address] [place], [address] Eosinophils/100 WBC (Bld) 6.8 % High 0-5 [facility] Comment on above: Performed By: #### L 100.0100 ####[facility] [address] [place], [address] Erythrocyte distribution width (RBC) [Ratio] 18.8 % High 11.6-14.6 [facility] Comment on above: Performed By: #### L 100.0100 ####[facility] [address] [place], [address] Hematocrit (Bld) [Volume fraction] 22.2 % Low 40-54 [facility] Comment on above: Performed By: #### L 100.0100 ####[facility] [address] [place], [address] Hemoglobin (Bld) [Mass/Vol] 7.5 g/dL Low 13.0-16.5 [facility] Comment on above: Performed By: #### L 100.0100 ####[facility] [address] [place], [address] IG% 1.100 High 0.0-0.9 [facility] Comment on above: Result Comment: IG% - Immature Granulocytes (promyelocytes, myelocytes andmetamyelocytes) > 1% indicates that a LEFT SHIFT is Present. Performed By: #### L 100.0100 ####[facility] [address] [place], [address] Lymphocytes/100 WBC (Bld) 12.9 % Low 19-41 [facility] Comment on above: Performed By: #### L 100.0100 ####[facility] [address] [place], [address] MCH (RBC) [Entitic mass] 30.0 pg Normal 27.0-32.0 [facility] Comment on above: Performed By: #### L 100.0100 ####[facility] [address] [place], [address] MCHC (RBC) [Mass/Vol] 33.8 g/dL Normal 32-36 [facility] Comment on above: Performed By: #### L 100.0100 ####[facility] [address] [place], [address] MCV (RBC) [Entitic vol] 88.8 fL Normal 80-94 [facility] Comment on above: Performed By: #### L 100.0100 ####[facility] [address] [place], [address] Monocytes/100 WBC (Bld) 11.5 % High 0-10 [facility] Comment on above: Performed By: #### L 100.0100 ####[facility] [address] [place], [address] Neutrophils/100 WBC (Bld) 67.2 % Normal 47-70 [facility] Comment on above: Performed By: #### L 100.0100 ####[facility] [address] [place], [address] Nucleated RBC (Bld) [#/Vol] 0 10*3/uL Normal 0-5 [facility] Comment on above: Performed By: #### L 100.0100 ####[facility] [address] [place], [address] Platelet mean volume (Bld) [Entitic vol] 10.7 fL Normal 6.2-12.0 [facility] Comment on above: Performed By: #### L 100.0100 ####[facility] [address] [place], [address] Platelets (Bld) [#/Vol] 109 10*3/uL Low 150-450 [facility] Comment on above: Performed By: #### L 100.0100 ####[facility] [address] [place], [address] RBC (Bld) [#/Vol] 2.50 10*6/uL Low 4.6-6.2 [facility] Comment on above: Performed By: #### L 100.0100 ####[facility] [address] [place], [address] RDW SD 58.8 fl High 35.1-43.9 [facility] Comment on above: Performed By: #### L 100.0100 ####[facility] [address] [place], [address] WBC (Bld) [#/Vol] 8.4 10*3/uL Normal 4.4-11.0 [facility] Comment on above: Performed By: #### L 100.0100 ####[facility] [address] [place], [address] Bedside Glucoseon 01-16-2025 FINGERSTICK GLU 227 mg/dL High 74-106 [facility] Comment on above: Result Comment: BRISA GEMENT OF PATIENT CARE PER NURSING PROTOCOL Performed By: #### L 501.080 ####[facility] [address] [place], [address] FINGERSTICK GLU 202 mg/dL High 74-106 [facility] Comment on above: Result Comment: BRISA GEMENT OF PATIENT CARE PER NURSING PROTOCOL Performed By: #### L 501.080 ####[facility] [address] [place], [address] FINGERSTICK GLU 177 mg/dL High 74-106 [facility] Comment on above: Result Comment: BRISA GEMENT OF PATIENT CARE PER NURSING PROTOCOL Performed By: #### L 501.080 ####[facility] [address] [place], [address] FINGERSTICK GLU 173 mg/dL High 74-106 [facility] Comment on above: Result Comment: BRISA GEMENT OF PATIENT CARE PER NURSING PROTOCOL Performed By: #### L 501.080 ####[facility] [address] [place], [address] CBC W/Diff, Automatedon -08 08-2024 Absolute Lymph 1.16 X10 3/uL Normal 0.83-4.51 [facility] Comment on above: Performed By: #### L 100.0100 ####[facility] [address] [place], [address] Absolute Neut 5.2 X10 3/uL Normal 2.0-7.7 [facility] Comment on above: Performed By: #### L 100.0100 ####[facility] [address] [place], [address] Basophils/100 WBC (Bld) 0.4 % Normal 0-1 [facility] Comment on above: Performed By: #### L 100.0100 ####[facility] [address] [place], [address] Eosinophils/100 WBC (Bld) 6.5 % High 0-5 [facility] Comment on above: Performed By: #### L 100.0100 ####[facility] [address] [place], [address] Erythrocyte distribution width (RBC) [Ratio] 18.5 % High 11.6-14.6 [facility] Comment on above: Performed By: #### L 100.0100 ####[facility] [address] [place], [address] Hematocrit (Bld) [Volume fraction] 22.8 % Low 40-54 [facility] Comment on above: Performed By: #### L 100.0100 ####[facility] [address] [place], [address] Hemoglobin (Bld) [Mass/Vol] 7.8 g/dL Low 13.0-16.5 [facility] Comment on above: Performed By: #### L 100.0100 ####[facility] [address] [place], [address] IG% 0.900 Normal 0.0-0.9 [facility] Comment on above: Result Comment: IG% - Immature Granulocytes (promyelocytes, myelocytes andmetamyelocytes) > 1% indicates that a LEFT SHIFT is Present. Performed By: #### L 100.0100 ####[facility] [address] [place], [address] Lymphocytes/100 WBC (Bld) 14.6 % Low 19-41 [facility] Comment on above: Performed By: #### L 100.0100 ####[facility] [address] [place], [address] MCH (RBC) [Entitic mass] 30.2 pg Normal 27.0-32.0 [facility] Comment on above: Performed By: #### L 100.0100 ####[facility] [address] [place], [address] MCHC (RBC) [Mass/Vol] 34.2 g/dL Normal 32-36 [facility] Comment on above: Performed By: #### L 100.0100 ####[facility] [address] [place], [address] MCV (RBC) [Entitic vol] 88.4 fL Normal 80-94 [facility] Comment on above: Performed By: #### L 100.0100 ####[facility] [address] [place], [address] Monocytes/100 WBC (Bld) 12.7 % High 0-10 [facility] Comment on above: Performed By: #### L 100.0100 ####[facility] [address] [place], [address] Neutrophils/100 WBC (Bld) 64.9 % Normal 47-70 [facility] Comment on above: Performed By: #### L 100.0100 ####[facility] [address] [place], [address] Nucleated RBC (Bld) [#/Vol] 0 10*3/uL Normal 0-5 [facility] Comment on above: Performed By: #### L 100.0100 ####[facility] [address] [place], [address] Platelet mean volume (Bld) [Entitic vol] 10.8 fL Normal 6.2-12.0 [facility] Comment on above: Performed By: #### L 100.0100 ####[facility] [address] [place], [address] Platelets (Bld) [#/Vol] 111 10*3/uL Low 150-450 [facility] Comment on above: Performed By: #### L 100.0100 ####[facility] [address] [place], [address] RBC (Bld) [#/Vol] 2.58 10*6/uL Low 4.6-6.2 [facility] Comment on above: Performed By: #### L 100.0100 ####[facility] [address] [place], [address] RDW SD 57.9 fl High 35.1-43.9 [facility] Comment on above: Performed By: #### L 100.0100 ####[facility] [address] [place], [address] WBC (Bld) [#/Vol] 7.9 10*3/uL Normal 4.4-11.0 [facility] Comment on above: Performed By: #### L 100.0100 ####[facility] [address] [place], [address] Comprehensive Metabolic Prof ilon 01-16-2025 Albumin [Mass/Vol] 2.2 g/dL Low 3.5-5.0 [facility] Comment on above: Performed By: #### L 500.4050 ####[facility] [address] [place], [address] Albumin/Globulin [Mass ratio] 0.9 {ratio} Normal 0.9-2.4 [facility] Comment on above: Performed By: #### L 500.4050 ####[facility] [address] [place], [address] ALK PHOS 247 U/L High 40-129 [facility] Comment on above: Performed By: #### L 500.4050 ####[facility] [address] [place], [address] ALT [Catalytic activity/Vol] 49 U/L High <=46 [facility] Comment on above: Performed By: #### L 500.4050 ####[facility] [address] [place], [address] AST [Catalytic activity/Vol] 51 U/L High <=37 [facility] Comment on above: Performed By: #### L 500.4050 ####[facility] [address] [place], [address] Bilirubin [Mass/Vol] 1.89 mg/dL High 0.00-1.30 [facility] Comment on above: Performed By: #### L 500.4050 ####[facility] [address] [place], [address] BUN/CRE 7.1 RATIO Low 10-20 [facility] Comment on above: Performed By: #### L 500.4050 ####[facility] [address] [place], [address] Calcium [Mass/Vol] 7.8 mg/dL Normal 7.6-11.0 [facility] Comment on above: Performed By: #### L 500.4050 ####[facility] [address] [place], [address] Chloride [Moles/Vol] 93 mmol/L Low 98-108 [facility] Comment on above: Performed By: #### L 500.4050 ####[facility] [address] [place], [address] CO2 [Moles/Vol] 31.1 mmol/L Normal 21.0-32.0 [facility] Comment on above: Performed By: #### L 500.4050 ####[facility] [address] [place], [address] Creatinine [Mass/Vol] 0.80 mg/dL Normal 0.70-1.20 [facility] Comment on above: Performed By: #### L 500.4050 ####[facility] [address] [place], [address] ECRCL 118.59 ml/min Normal 50-250 [facility] Comment on above: Performed By: #### L 500.4050 ####[facility] [address] [place], [address] GAP 7 Normal 5-15 [facility] Comment on above: Performed By: #### L 500.4050 ####[facility] [address] [place], [address] GFR/1.73 sq M.predicted among non-blacks MDRD (S/P/Bld) [Vol rate/Area] 103 mL/min/{1.73_m2} Normal >60 [facility] Comment on above: Result Comment: mL/m in/1.73m2 CKD-EPI Creatinine Equation (2020) Performed By: #### L 500.4050 ####[facility] [address] [place], [address] Globulin (S) [Mass/Vol] 2.5 g/dL Normal 2.2-4.2 [facility] Comment on above: Performed By: #### L 500.4050 ####[facility] [address] [place], [address] Glucose [Mass/Vol] 174 mg/dL High 70-99 [facility] Comment on above: Performed By: #### L 500.4050 ####[facility] [address] [place], [address] Potassium [Moles/Vol] 3.3 mmol/L Normal 3.3-5.1 [facility] Comment on above: Performed By: #### L 500.4050 ####[facility] [address] [place], [address] Sodium [Moles/Vol] 132 mmol/L Low 133-145 [facility] Comment on above: Performed By: #### L 500.4050 ####[facility] [address] [place], [address] T PROT 4.8 g/dL Low 5.9-8.4 [facility] Comment on above: Performed By: #### L 500.4050 ####[facility] [address] [place], [address] Urea nitrogen [Mass/Vol] 6 mg/dL Normal 4-19 [facility] Comment on above: Performed By: #### L 500.4050 ####[facility] [address] [place], [address] Serum or plasma vancomycin m easurement (mass/volume)Ordered By: Cielo Tovar on 01-16-2025 Vancomycin [Mass/Vol] 7.7 ug/mL 0.0-15.0 [facility] Vancomycin, Random Levelon 0 01-16-2025 VANCO, RANDOM 7.7 ug/mL Normal 0.0-15.0 [facility] Comment on above: Result Comment: VANC OMYCIN STANDARD DRUG THERAPY: CRITICAL VALUE IS > 15.0 mg/LVANCOMYCIN HIGH INTENSITY THERAPY: CRITICAL VALUE IS > 20.0 mg/LPLEASE CONTACT PHARMACY SERVICES (#2622) FOR INTERPRETATIONOF RESULTS. THIS RESULT DOES NOT REPRESENT A PEAK OR TROUGHLEVEL FOR THIS DRUG. Performed By: #### L 501.8850 ####[facility] [address] [place], [address] Bedside Glucoseon 01-15-2025 FINGERSTICK GLU 237 mg/dL High [address] [place] [address] Comment on above: Result Comment: BRISA GEMENT OF PATIENT CARE PER NURSING PROTOCOL Performed By: #### L 501.080 ####[facility] [address] [place], [address] FINGERSTICK GLU 240 mg/dL High [address] [place] [address] Comment on above: Result Comment: BRISA GEMENT OF PATIENT CARE PER NURSING PROTOCOL Performed By: #### L 501.080 ####[facility] [address] [place], [address] FINGERSTICK GLU 221 mg/dL High [address] [place] [address] Comment on above: Result Comment: BRISA GEMENT OF PATIENT CARE PER NURSING PROTOCOL Performed By: #### L 501.080 ####[facility] [address] [place], [address] FINGERSTICK GLU 167 mg/dL High [address] [place] [address] Comment on above: Result Comment: BRISA GEMENT OF PATIENT CARE PER NURSING PROTOCOL Performed By: #### L 501.080 ####[facility] [address] [place], [address] FINGERSTICK GLU 173 mg/dL High 74-106 [facility] Comment on above: Result Comment: BRISA MOROCHO OF PATIENT CARE PER NURSING PROTOCOL Performed By: #### L 501.080 ####[facility] [address] [place], [address] CBC W/Diff, Automatedon 06- Absolute Lymph 1.06 X10 3/uL Normal 0.83-4.51 [facility] Comment on above: Performed By: #### L 100.0100, L500.4050 ####[facility] [address] [place], [address] Absolute Neut 5.3 X10 3/uL Normal 2.0-7.7 [facility] Comment on above: Performed By: #### L 100.0100, L500.4050 ####[facility] [address] [place], [address] Basophils/100 WBC (Bld) 0.5 % Normal 0-1 [facility] Comment on above: Performed By: #### L 100.0100, L500.4050 ####[facility] [address] [place], [address] Eosinophils/100 WBC (Bld) 6.1 % High 0-5 [facility] Comment on above: Performed By: #### L 100.0100, L500.4050 ####[facility] [address] [place], [address] Erythrocyte distribution width (RBC) [Ratio] 18.6 % High 11.6-14.6 [facility] Comment on above: Performed By: #### L 100.0100, L500.4050 ####[facility] [address] [place], [address] Hematocrit (Bld) [Volume fraction] 23.2 % Low 40-54 [facility] Comment on above: Performed By: #### L 100.0100, L500.4050 ####[facility] [address] [place], [address] Hemoglobin (Bld) [Mass/Vol] 7.9 g/dL Low 13.0-16.5 [facility] Comment on above: Performed By: #### L 100.0100, L500.4050 ####[facility] [address] [place], [address] IG% 1.000 High 0.0-0.9 [facility] Comment on above: Result Comment: IG% - Immature Granulocytes (promyelocytes, myelocytes andmetamyelocytes) > 1% indicates that a LEFT SHIFT is Present. Performed By: #### L 100.0100, L500.4050 ####[facility] [address] [place], [address] Lymphocytes/100 WBC (Bld) 13.2 % Low 19-41 [facility] Comment on above: Performed By: #### L 100.0100, L500.4050 ####[facility] [address] [place], [address] MCH (RBC) [Entitic mass] 29.8 pg Normal 27.0-32.0 [facility] Comment on above: Performed By: #### L 100.0100, L500.4050 ####[facility] [address] [place], [address] MCHC (RBC) [Mass/Vol] 34.1 g/dL Normal 32-36 [facility] Comment on above: Performed By: #### L 100.0100, L500.4050 ####[facility] [address] [place], [address] MCV (RBC) [Entitic vol] 87.5 fL Normal 80-94 [facility] Comment on above: Performed By: #### L 100.0100, L500.4050 ####[facility] [address] [place], [address] Monocytes/100 WBC (Bld) 13.6 % High 0-10 [facility] Comment on above: Performed By: #### L 100.0100, L500.4050 ####[facility] [address] [place], [address] Neutrophils/100 WBC (Bld) 65.6 % Normal 47-70 [facility] Comment on above: Performed By: #### L 100.0100, L500.4050 ####[facility] [address] [place], [address] Nucleated RBC (Bld) [#/Vol] 0 10*3/uL Normal 0-5 [facility] Comment on above: Performed By: #### L 100.0100, L500.4050 ####[facility] [address] [place], [address] Platelet mean volume (Bld) [Entitic vol] 11.0 fL Normal 6.2-12.0 [facility] Comment on above: Performed By: #### L 100.0100, L500.4050 ####[facility] [address] [place], [address] Platelets (Bld) [#/Vol] 118 10*3/uL Low 150-450 [facility] Comment on above: Performed By: #### L 100.0100, L500.4050 ####[facility] [address] [place], [address] RBC (Bld) [#/Vol] 2.65 10*6/uL Low 4.6-6.2 [facility] Comment on above: Performed By: #### L 100.0100, L500.4050 ####[facility] [address] [place], [address] RDW SD 58.1 fl High 35.1-43.9 [facility] Comment on above: Performed By: #### L 100.0100, L500.4050 ####[facility] [address] [place], [address] WBC (Bld) [#/Vol] 8.0 10*3/uL Normal 4.4-11.0 [facility] Comment on above: Performed By: #### L 100.0100, L500.4050 ####[facility] [address] [place], [address] Comprehensive Metabolic Prof ilon 01-15-2025 Albumin/Globulin [Mass ratio] 0.8 {ratio} Low 0.9-2.4 [facility] Comment on above: Performed By: #### L 100.0100, L500.4050 ####[facility] [address] [place], [address] ALK PHOS 275 U/L High 40-129 [facility] Comment on above: Performed By: #### L 100.0100, L500.4050 ####[facility] [address] [place], [address] ALT [Catalytic activity/Vol] 56 U/L High <=46 [facility] Comment on above: Performed By: #### L 100.0100, L500.4050 ####[facility] [address] [place], [address] AST [Catalytic activity/Vol] 64 U/L High <=37 [facility] Comment on above: Performed By: #### L 100.0100, L500.4050 ####[facility] [address] [place], [address] Bilirubin [Mass/Vol] 2.06 mg/dL High 0.00-1.30 [facility] Comment on above: Performed By: #### L 100.0100, L500.4050 ####[facility] [address] [place], [address] Calcium [Mass/Vol] 7.8 mg/dL Normal 7.6-11.0 [facility] Comment on above: Performed By: #### L 100.0100, L500.4050 ####[facility] [address] [place], [address] Chloride [Moles/Vol] 94 mmol/L Low 98-108 [facility] Comment on above: Performed By: #### L 100.0100, L500.4050 ####[facility] [address] [place], [address] CO2 [Moles/Vol] 26.7 mmol/L Normal 21.0-32.0 [facility] Comment on above: Performed By: #### L 100.0100, L500.4050 ####[facility] [address] [place], [address] GAP 9 Normal 5-15 [facility] Comment on above: Performed By: #### L 100.0100, L500.4050 ####[facility] [address] [place], [address] Potassium [Moles/Vol] 3.2 mmol/L Low 3.3-5.1 [facility] Comment on above: Performed By: #### L 100.0100, L500.4050 ####[facility] [address] [place], [address] Sodium [Moles/Vol] 130 mmol/L Low 133-145 [facility] Comment on above: Performed By: #### L 100.0100, L500.4050 ####[facility] [address] [place], [address] Albumin [Mass/Vol] 2.2 g/dL Low 3.5-5.0 [facility] Comment on above: Performed By: #### L 100.0100, L500.4050 ####[facility] [address] [place], [address] BUN/CRE 6.0 RATIO Low 10-20 [facility] Comment on above: Performed By: #### L 100.0100, L500.4050 ####[facility] [address] [place], [address] Creatinine [Mass/Vol] 0.82 mg/dL Normal 0.70-1.20 [facility] Comment on above: Performed By: #### L 100.0100, L500.4050 ####[facility] [address] [place], [address] ECRCL 115.58 ml/min Normal 50-250 [facility] Comment on above: Performed By: #### L 100.0100, L500.4050 ####[facility] [address] [place], [address] GFR/1.73 sq M.predicted among non-blacks MDRD (S/P/Bld) [Vol rate/Area] 102 mL/min/{1.73_m2} Normal >60 [facility] Comment on above: Result Comment: mL/m in/1.73m2 CKD-EPI Creatinine Equation (2020) Performed By: #### L 100.0100, L500.4050 ####[facility] [address] [place], [address] Globulin (S) [Mass/Vol] 2.7 g/dL Normal 2.2-4.2 [facility] Comment on above: Performed By: #### L 100.0100, L500.4050 ####[facility] [address] [place], [address] Glucose [Mass/Vol] 178 mg/dL High 70-99 [facility] Comment on above: Performed By: #### L 100.0100, L500.4050 ####[facility] [address] [place], [address] T PROT 4.9 g/dL Low 5.9-8.4 [facility] Comment on above: Performed By: #### L 100.0100, L500.4050 ####[facility] [address] [place], [address] Urea nitrogen [Mass/Vol] 5 mg/dL Normal 4-19 [facility] Comment on above: Performed By: #### L 100.0100, L500.4050 ####[facility] [address] [place], [address] Vancomycin, Random Levelon 0 - VANCO, RANDOM 20.7 ug/mL High 0.0-15.0 [facility] Comment on above: Result Comment: VANC OMYCIN STANDARD DRUG THERAPY: CRITICAL VALUE IS > 15.0 mg/LVANCOMYCIN HIGH INTENSITY THERAPY: CRITICAL VALUE IS > 20.0 mg/LPLEASE CONTACT PHARMACY SERVICES (#4046) FOR INTERPRETATIONOF RESULTS. THIS RESULT DOES NOT REPRESENT A PEAK OR TROUGHLEVEL FOR THIS DRUG. Performed By: #### L 501.8850 ####[facility] [address] [place], [address] Bedside Glucoseon - FINGERSTICK GLU 194 mg/dL High 74-106 [facility] Comment on above: Result Comment: BRISA GEMENT OF PATIENT CARE PER NURSING PROTOCOL Performed By: #### L 501.080 ####[facility] [address] [place], [address] FINGERSTICK GLU 261 mg/dL High 74-106 [facility] Comment on above: Result Comment: BRISA GEMENT OF PATIENT CARE PER NURSING PROTOCOL Performed By: #### L 501.080 ####[facility] [address] [place], [address] FINGERSTICK GLU 263 mg/dL High 74-106 [facility] Comment on above: Result Comment: BRISA MOROCHO OF PATIENT CARE PER NURSING PROTOCOL Performed By: #### L 501.080 ####[facility] [address] [place], [address] CBC W/Diff, Automatedon 06-08 06-2024 Absolute Lymph 1.09 X10 3/uL Normal 0.83-4.51 [facility] Comment on above: Performed By: #### L 100.0100, L500.4050 ####[facility] [id number] [place], [address] Absolute Neut 5.3 X10 3/uL Normal 2.0-7.7 [facility] Comment on above: Performed By: #### L 100.0100, L500.4050 ####[facility] [id number] [place], [address] Basophils/100 WBC (Bld) 0.4 % Normal 0-1 [facility] Comment on above: Performed By: #### L 100.0100, L500.4050 ####[facility] [address] [place], [address] Eosinophils/100 WBC (Bld) 5.5 % High 0-5 [facility] Comment on above: Performed By: #### L 100.0100, L500.4050 ####[facility] [address] [place], [address] Erythrocyte distribution width (RBC) [Ratio] 18.5 % High 11.6-14.6 [facility] Comment on above: Performed By: #### L 100.0100, L500.4050 ####[facility] [address] [place], [address] Hematocrit (Bld) [Volume fraction] 23.2 % Low 40-54 [facility] Comment on above: Performed By: #### L 100.0100, L500.4050 ####[facility] [address] [place], [address] Hemoglobin (Bld) [Mass/Vol] 7.8 g/dL Low 13.0-16.5 [facility] Comment on above: Performed By: #### L 100.0100, L500.4050 ####[facility] [address] [place], [address] IG% 1.000 High 0.0-0.9 [facility] Comment on above: Result Comment: IG% - Immature Granulocytes (promyelocytes, myelocytes andmetamyelocytes) > 1% indicates that a LEFT SHIFT is Present. Performed By: #### L 100.0100, L500.4050 ####[facility] [address] [place], [address] Lymphocytes/100 WBC (Bld) 13.5 % Low 19-41 [facility] Comment on above: Performed By: #### L 100.0100, L500.4050 ####[facility] [address] [place], [address] MCH (RBC) [Entitic mass] 29.5 pg Normal 27.0-32.0 [facility] Comment on above: Performed By: #### L 100.0100, L500.4050 ####[facility] [address] [place], [address] MCHC (RBC) [Mass/Vol] 33.6 g/dL Normal 32-36 [facility] Comment on above: Performed By: #### L 100.0100, L500.4050 ####[facility] [address] [place], [address] MCV (RBC) [Entitic vol] 87.9 fL Normal 80-94 [facility] Comment on above: Performed By: #### L 100.0100, L500.4050 ####[facility] [address] [place], [address] Monocytes/100 WBC (Bld) 14.3 % High 0-10 [facility] Comment on above: Performed By: #### L 100.0100, L500.4050 ####[facility] [address] [place], [address] Neutrophils/100 WBC (Bld) 65.3 % Normal 47-70 [facility] Comment on above: Performed By: #### L 100.0100, L500.4050 ####[facility] [address] [place], [address] Nucleated RBC (Bld) [#/Vol] 0 10*3/uL Normal 0-5 [facility] Comment on above: Performed By: #### L 100.0100, L500.4050 ####[facility] [address] [place], [address] Platelet mean volume (Bld) [Entitic vol] 11.8 fL Normal 6.2-12.0 [facility] Comment on above: Performed By: #### L 100.0100, L500.4050 ####[facility] [address] [place], [address] Platelets (Bld) [#/Vol] 121 10*3/uL Low 150-450 [facility] Comment on above: Performed By: #### L 100.0100, L500.4050 ####[facility] [address] [place], [address] RBC (Bld) [#/Vol] 2.64 10*6/uL Low 4.6-6.2 [facility] Comment on above: Performed By: #### L 100.0100, L500.4050 ####[facility] [address] [place], [address] RDW SD 58.4 fl High 35.1-43.9 [facility] Comment on above: Performed By: #### L 100.0100, L500.4050 ####[facility] [address] [place], [address] WBC (Bld) [#/Vol] 8.1 10*3/uL Normal 4.4-11.0 [facility] Comment on above: Performed By: #### L 100.0100, L500.4050 ####[facility] [address] [place], [address] Chest without Contraston Chest without Contrast Normal [facility] Comprehensive Metabolic Prof ilon 01-14-2025 Albumin [Mass/Vol] 2.4 g/dL Low 3.5-5.0 [facility] Comment on above: Performed By: #### L 100.0100, L500.4050 ####[facility] [address] [place], [address] Albumin/Globulin [Mass ratio] 0.9 {ratio} Normal 0.9-2.4 [facility] Comment on above: Performed By: #### L 100.0100, L500.4050 ####[facility] [address] [place], [address] ALK PHOS 293 U/L High 40-129 [facility] Comment on above: Performed By: #### L 100.0100, L500.4050 ####[facility] [address] [place], [address] ALT [Catalytic activity/Vol] 61 U/L High <=46 [facility] Comment on above: Performed By: #### L 100.0100, L500.4050 ####[facility] [address] [place], [address] AST [Catalytic activity/Vol] 83 U/L High <=37 [facility] Comment on above: Performed By: #### L 100.0100, L500.4050 ####[facility] [address] [place], [address] Bilirubin [Mass/Vol] 2.64 mg/dL High 0.00-1.30 [facility] Comment on above: Performed By: #### L 100.0100, L500.4050 ####[facility] [address] [place], [address] BUN/CRE 6.4 RATIO Low 10-20 [facility] Comment on above: Performed By: #### L 100.0100, L500.4050 ####[facility] [address] [place], [address] Calcium [Mass/Vol] 7.9 mg/dL Normal 7.6-11.0 [facility] Comment on above: Performed By: #### L 100.0100, L500.4050 ####[facility] [address] [place], [address] Chloride [Moles/Vol] 95 mmol/L Low 98-108 [facility] Comment on above: Performed By: #### L 100.0100, L500.4050 ####[facility] [address] [place], [address] CO2 [Moles/Vol] 25.1 mmol/L Normal 21.0-32.0 [facility] Comment on above: Performed By: #### L 100.0100, L500.4050 ####[facility] [address] [place], [address] Creatinine [Mass/Vol] 0.86 mg/dL Normal 0.70-1.20 [facility] Comment on above: Performed By: #### L 100.0100, L500.4050 ####[facility] [address] [place], [address] ECRCL 110.10 ml/min Normal 50-250 [facility] Comment on above: Performed By: #### L 100.0100, L500.4050 ####[facility] [address] [place], [address] GAP 11 Normal 5-15 [facility] Comment on above: Performed By: #### L 100.0100, L500.4050 ####[facility] [address] [place], [address] GFR/1.73 sq M.predicted among non-blacks MDRD (S/P/Bld) [Vol rate/Area] 100 mL/min/{1.73_m2} Normal >60 [facility] Comment on above: Result Comment: mL/m in/1.73m2 CKD-EPI Creatinine Equation (2020) Performed By: #### L 100.0100, L500.4050 ####[facility] [address] [place], [address] Globulin (S) [Mass/Vol] 2.5 g/dL Normal 2.2-4.2 [facility] Comment on above: Performed By: #### L 100.0100, L500.4050 ####[facility] [address] [place], [address] Glucose [Mass/Vol] 280 mg/dL High 70-99 [facility] Comment on above: Performed By: #### L 100.0100, L500.4050 ####[facility] [address] [place], [address] Potassium [Moles/Vol] 3.0 mmol/L Low 3.3-5.1 [facility] Comment on above: Performed By: #### L 100.0100, L500.4050 ####[facility] [address] [place], [address] Sodium [Moles/Vol] 131 mmol/L Low 133-145 [facility] Comment on above: Performed By: #### L 100.0100, L500.4050 ####[facility] [address] [place], [address] T PROT 4.9 g/dL Low 5.9-8.4 [facility] Comment on above: Performed By: #### L 100.0100, L500.4050 ####[facility] [address] [place], [address] Urea nitrogen [Mass/Vol] 6 mg/dL Normal 4-19 [facility] Comment on above: Performed By: #### L 100.0100, L500.4050 ####[facility] [address] [place], [address] Culture, Blood (WB)on 2024 CUB Blood cultures x2, f rom two different sites No growth in 5 days. Normal [facility] Comment on above: Performed By: #### M 200.1000 ####[facility] [address] [place], [address] Magnetic resonance imaging r eportOrdered By: Kenneth Barton on 01-14-2025 Study report [facility] Work Phone: PSA,Total- Diagnosticon 01-02 PSA, DIAGNOSTIC 0.65 ng/mL Normal 0.00-4.00 [facility] Comment on above: Result Comment: This test was performed using the [employer] tPSAmethod. Measured values of a patient??sample can varydepending on the testing procedure used. PSA valuesdetermined on patient samples by different testingprocedures cannot be used interchangeably. If there is achange in PSA assays while monitoring therapy, sequentialtesting should be performed to confirm baseline values. Performed By: #### L 869.3349 ####[facility] [address] [place], [address] Trough vancomycin levelOrder ed By: Cielo Tovar on 01-14-2025 Vancomycin trough [Mass/Vol] 21.4 ug/mL High 5.0-15.0 [facility] Vancomycin, Trough Levelon 0 01-14-2025 VANCO, TROUGH 21.4 ug/mL High 5.0-15.0 [facility] Comment on above: Order Comment: 1830 Result [...] therapy recommended for serious lifethreatening infections include:- Coiqzbrdqt-Trbuetsstbhh-Ncocznrii (Ventilator/Healtcare Associated)-SepsisPLEASE CONTACT PHARMACY SERVICES (#1272) FOR INTERPRETATIONOF RESULTS. Performed By: #### L 501.8820 ####[facility] [address] [place], [address] BRCon 01-13-2025 Normal [facility] Comment on above: Result Comment: [id number] ON RC TRANSFUSED 01/13/25 1613 Performed By: #### B , BTS ####[facility] [address] [place], [address] Bedside Glucoseon 01-13-2025 FINGERSTICK GLU 272 mg/dL High 74-106 [facility] Comment on above: Result Comment: BRISA GEMENT OF PATIENT CARE PER NURSING PROTOCOL Performed By: #### L 501.080 ####[facility] [address] [place], [address] FINGERSTICK GLU 268 mg/dL High 74-106 [facility] Comment on above: Result Comment: BRISA GEMENT OF PATIENT CARE PER NURSING PROTOCOL Performed By: #### L 501.080 ####[facility] [address] [place], [address] FINGERSTICK GLU 249 mg/dL High 74-106 [facility] Comment on above: Result Comment: BRISA GEMENT OF PATIENT CARE PER NURSING PROTOCOL Performed By: #### L 501.080 ####[facility] [address] [place], [address] FINGERSTICK GLU 201 mg/dL High 74-106 [facility] Comment on above: Result Comment: BRISA GEMENT OF PATIENT CARE PER NURSING PROTOCOL Performed By: #### L 501.080 ####[facility] [address] [place], [address] CBC W/Diff, Automatedon 01-02-2024 Absolute Lymph 1.25 X10 3/uL Normal 0.83-4.51 [facility] Comment on above: Performed By: #### L 100.0100, L500.4050 ####[facility] [address] [place], [address] Absolute Neut 5.7 X10 3/uL Normal 2.0-7.7 [facility] Comment on above: Performed By: #### L 100.0100, L500.4050 ####[facility] [address] [place], [address] Basophils/100 WBC (Bld) 0.3 % Normal 0-1 [facility] Comment on above: Performed By: #### L 100.0100, L500.4050 ####[facility] [address] [place], [address] Eosinophils/100 WBC (Bld) 5.2 % High 0-5 [facility] Comment on above: Performed By: #### L 100.0100, L500.4050 ####[facility] [address] [place], [address] Erythrocyte distribution width (RBC) [Ratio] 18.6 % High 11.6-14.6 [facility] Comment on above: Performed By: #### L 100.0100, L500.4050 ####[facility] [address] [place], [address] Hematocrit (Bld) [Volume fraction] 21.0 % Low 40-54 [facility] Comment on above: Performed By: #### L 100.0100, L500.4050 ####[facility] [address] [place], [address] Hemoglobin (Bld) [Mass/Vol] 7.2 g/dL Low 13.0-16.5 [facility] Comment on above: Performed By: #### L 100.0100, L500.4050 ####[facility] [address] [place], [address] IG% 0.800 Normal 0.0-0.9 [facility] Comment on above: Result Comment: IG% - Immature Granulocytes (promyelocytes, myelocytes andmetamyelocytes) > 1% indicates that a LEFT SHIFT is Present. Performed By: #### L 100.0100, L500.4050 ####[facility] [address] [place], [address] Lymphocytes/100 WBC (Bld) 14.4 % Low 19-41 [facility] Comment on above: Performed By: #### L 100.0100, L500.4050 ####[facility] [address] [place], [address] MCH (RBC) [Entitic mass] 30.3 pg Normal 27.0-32.0 [facility] Comment on above: Performed By: #### L 100.0100, L500.4050 ####[facility] [address] [place], [address] MCHC (RBC) [Mass/Vol] 34.3 g/dL Normal 32-36 [facility] Comment on above: Performed By: #### L 100.0100, L500.4050 ####[facility] [address] [place], [address] MCV (RBC) [Entitic vol] 88.2 fL Normal 80-94 [facility] Comment on above: Performed By: #### L 100.0100, L500.4050 ####[facility] [address] [place], [address] Monocytes/100 WBC (Bld) 13.7 % High 0-10 [facility] Comment on above: Performed By: #### L 100.0100, L500.4050 ####[facility] [address] [place], [address] Neutrophils/100 WBC (Bld) 65.6 % Normal 47-70 [facility] Comment on above: Performed By: #### L 100.0100, L500.4050 ####[facility] [address] [place], [address] Nucleated RBC (Bld) [#/Vol] 0 10*3/uL Normal 0-5 [facility] Comment on above: Performed By: #### L 100.0100, L500.4050 ####[facility] [address] [place], [address] Platelet mean volume (Bld) [Entitic vol] 11.3 fL Normal 6.2-12.0 [facility] Comment on above: Performed By: #### L 100.0100, L500.4050 ####[facility] [address] [place], [address] Platelets (Bld) [#/Vol] 124 10*3/uL Low 150-450 [facility] Comment on above: Performed By: #### L 100.0100, L500.4050 ####[facility] [address] [place], [address] RBC (Bld) [#/Vol] 2.38 10*6/uL Low 4.6-6.2 [facility] Comment on above: Performed By: #### L 100.0100, L500.4050 ####[facility] [address] [place], [address] RDW SD 59.2 fl High 35.1-43.9 [facility] Comment on above: Performed By: #### L 100.0100, L500.4050 ####[facility] [address] [place], [address] WBC (Bld) [#/Vol] 8.7 10*3/uL Normal 4.4-11.0 [facility] Comment on above: Performed By: #### L 100.0100, L500.4050 ####[facility] [address] [place], [address] Comprehensive Metabolic Prof [facility] 01-13-2025 Albumin [Mass/Vol] 2.3 g/dL Low 3.5-5.0 [facility] Comment on above: Performed By: #### L 100.0100, L500.4050 ####[facility] [address] [place], [address] Albumin/Globulin [Mass ratio] 0.9 {ratio} Normal 0.9-2.4 [facility] Comment on above: Performed By: #### L 100.0100, L500.4050 ####[facility] [address] [place], [address] ALK PHOS 306 U/L High 40-129 [facility] Comment on above: Performed By: #### L 100.0100, L500.4050 ####[facility] [address] [place], [address] ALT [Catalytic activity/Vol] 72 U/L High <=46 [facility] Comment on above: Performed By: #### L 100.0100, L500.4050 ####[facility] [address] [place], [address] AST [Catalytic activity/Vol] 107 U/L High <=37 [facility] Comment on above: Performed By: #### L 100.0100, L500.4050 ####[facility] [address] [place], [address] Bilirubin [Mass/Vol] 1.69 mg/dL High 0.00-1.30 [facility] Comment on above: Performed By: #### L 100.0100, L500.4050 ####[facility] [address] [place], [address] BUN/CRE 7.3 RATIO Low 10-20 [facility] Comment on above: Performed By: #### L 100.0100, L500.4050 ####[facility] [address] [place], [address] Calcium [Mass/Vol] 7.7 mg/dL Normal 7.6-11.0 [facility] Comment on above: Performed By: #### L 100.0100, L500.4050 ####[facility] [address] [place], [address] Chloride [Moles/Vol] 96 mmol/L Low 98-108 [facility] Comment on above: Performed By: #### L 100.0100, L500.4050 ####[facility] [address] [place], [address] CO2 [Moles/Vol] 25.5 mmol/L Normal 21.0-32.0 [facility] Comment on above: Performed By: #### L 100.0100, L500.4050 ####[facility] [address] [place], [address] Creatinine [Mass/Vol] 0.90 mg/dL Normal 0.70-1.20 [facility] Comment on above: Performed By: #### L 100.0100, L500.4050 ####[facility] [address] [place], [address] ECRCL 103.13 ml/min Normal 50-250 [facility] Comment on above: Performed By: #### L 100.0100, L500.4050 ####[facility] [address] [place], [address] GAP 10 Normal 5-15 [facility] Comment on above: Performed By: #### L 100.0100, L500.4050 ####[facility] [address] [place], [address] GFR/1.73 sq M.predicted among non-blacks MDRD (S/P/Bld) [Vol rate/Area] 99 mL/min/{1.73_m2} Normal >60 [facility] Comment on above: Result Comment: mL/m in/1.73m2 CKD-EPI Creatinine Equation (2020) Performed By: #### L 100.0100, L500.4050 ####[facility] [address] [place], [address] Globulin (S) [Mass/Vol] 2.6 g/dL Normal 2.2-4.2 [facility] Comment on above: Performed By: #### L 100.0100, L500.4050 ####[facility] [address] [place], [address] Glucose [Mass/Vol] 187 mg/dL High 70-99 [facility] Comment on above: Performed By: #### L 100.0100, L500.4050 ####[facility] [address] [place], [address] Potassium [Moles/Vol] 3.1 mmol/L Low 3.3-5.1 [facility] Comment on above: Performed By: #### L 100.0100, L500.4050 ####[facility] [address] [place], [address] Sodium [Moles/Vol] 132 mmol/L Low 133-145 [facility] Comment on above: Performed By: #### L 100.0100, L500.4050 ####[facility] [address] [place], [address] T PROT 4.9 g/dL Low 5.9-8.4 [facility] Comment on above: Performed By: #### L 100.0100, L500.4050 ####[facility] [address] [place], [address] Urea nitrogen [Mass/Vol] 7 mg/dL Normal 4-19 [facility] Comment on above: Performed By: #### L 100.0100, L500.4050 ####[facility] [address] [place], [address] Ferritinon 01-13-2025 Ferritin [Mass/Vol] 76 ng/mL Normal 37-417 [facility] Comment on above: Performed By: #### L 503.6550, L503.6030 ####[facility] [address] [place], [address] Iron measurement (mass/mass) Ordered By: Cielo Tovar on 01-13-2025 Iron (Unsp spec) [Mass/Mass] 110 ug/dL 65-175 [facility] Iron+Iron Binding Capacityon 01-13-2025 TIBC 211 ug/dL Low 250-450 [facility] Comment on above: Performed By: #### L 503.6550, L503.6030 ####[facility] [address] [place], [address] Magnetic resonance imaging r eportOrdered By: Jerry Osorio on 01-13-2025 Study report [facility] No Panel InformationOrdered By: Cielo Tovar on 01-13-2025 101 ug/dL Low 228-428 [facility] Serum or plasma ferritin wei surement (mass/volume)Ordered By: Cielo Tovar on 01-13-2025 Ferritin [Mass/Vol] 76 ng/mL 37-417 [facility] Serum or plasma iron saturat ion measurement (mass fraction)Ordered By: Cielo Tovar on 01-13-2025 Iron saturation [Mass fraction] 52.1 % 9-55 [facility] Spine Lumbar (Routine)on Spine Lumbar (Routine) Normal [facility] Spine Thoracic (Routine)on 0 01-13-2025 Spine Thoracic (Routine) Normal [facility] Type AND Screenon 01-13-2025 ABO and Rh group Nom (Bld) Blood group O Rh(D) positive Normal [facility] Comment on above: Order Comment: CMV N EG? NNumber of units to transfuse: 1Reason for Ordering Blood: AcuteAre the blood/blood products to be transfused? YIs the patient having/had surgery? NNWhen ReadyNYA Performed By: #### B RC, BTS ####[facility] [address] [place], [address] Vancomycin, Trough Levelon 0 01-13-2025 VANCO, TROUGH 19.8 ug/mL High 5.0-15.0 [facility] Comment on above: Order Comment: Comme nts: Trough to be drawn 30 mins prior to scheduled [id number] Result Comment: Eleazar mmended goal trough ranges [...] therapy recommended for serious lifethreatening infections include:- Hsmvlwfrud-Deqpntrwnmtk-Kjtbmedvu (Ventilator/Healtcare Associated)-SepsisPLEASE CONTACT PHARMACY SERVICES (#8275) FOR INTERPRETATIONOF RESULTS. Performed By: #### L 842.6219 ####[facility] [address] [place], [address] Bedside Glucoseon 01-12-2025 FINGERSTICK GLU 241 mg/dL High [address] [place] [address] Comment on above: Result Comment: BRISA GEMENT OF PATIENT CARE PER NURSING PROTOCOL Performed By: #### L 501.080 ####[facility] [address] [place], [address] FINGERSTICK GLU 316 mg/dL High -106 [facility] Comment on above: Result Comment: BRISA GEMENT OF PATIENT CARE PER NURSING PROTOCOL Performed By: #### L 501.080 ####[facility] [address] [place], [address] FINGERSTICK GLU 224 mg/dL High -106 [facility] Comment on above: Result Comment: BRISA GEMENT OF PATIENT CARE PER NURSING PROTOCOL Performed By: #### L 501.080 ####[facility] [address] [place], [address] FINGERSTICK GLU 214 mg/dL High -106 [facility] Comment on above: Result Comment: BRISA GEMENT OF PATIENT CARE PER NURSING PROTOCOL Performed By: #### L 501.080 ####[facility] [address] [place], [address] CBC W/Diff, Automatedon 01-02 Absolute Lymph 0.99 X10 3/uL Normal 0.83-4.51 [facility] Comment on above: Performed By: #### L 100.0100, L500.4050 ####[facility] [address] [place], [address] Absolute Neut 5.9 X10 3/uL Normal 2.0-7.7 [facility] Comment on above: Performed By: #### L 100.0100, L500.4050 ####[facility] [address] [place], [address] Basophils/100 WBC (Bld) 0.5 % Normal 0-1 [facility] Comment on above: Performed By: #### L 100.0100, L500.4050 ####[facility] [address] [place], [address] Eosinophils/100 WBC (Bld) 6.5 % High 0-5 [facility] Comment on above: Performed By: #### L 100.0100, L500.4050 ####[facility] [address] [place], [address] Erythrocyte distribution width (RBC) [Ratio] 18.4 % High 11.6-14.6 [facility] Comment on above: Performed By: #### L 100.0100, L500.4050 ####[facility] [address] [place], [address] Hematocrit (Bld) [Volume fraction] 21.8 % Low 40-54 [facility] Comment on above: Performed By: #### L 100.0100, L500.4050 ####[facility] [address] [place], [address] Hemoglobin (Bld) [Mass/Vol] 7.4 g/dL Low 13.0-16.5 [facility] Comment on above: Performed By: #### L 100.0100, L500.4050 ####[facility] [address] [place], [address] IG% 1.100 High 0.0-0.9 [facility] Comment on above: Result Comment: IG% - Immature Granulocytes (promyelocytes, myelocytes andmetamyelocytes) > 1% indicates that a LEFT SHIFT is Present. Performed By: #### L 100.0100, L500.4050 ####[facility] [address] [place], [address] Lymphocytes/100 WBC (Bld) 11.6 % Low 19-41 [facility] Comment on above: Performed By: #### L 100.0100, L500.4050 ####[facility] [address] [place], [address] MCH (RBC) [Entitic mass] 29.5 pg Normal 27.0-32.0 [facility] Comment on above: Performed By: #### L 100.0100, L500.4050 ####[facility] [address] [place], [address] MCHC (RBC) [Mass/Vol] 33.9 g/dL Normal 32-36 [facility] Comment on above: Performed By: #### L 100.0100, L500.4050 ####[facility] [address] [place], [address] MCV (RBC) [Entitic vol] 86.9 fL Normal 80-94 [facility] Comment on above: Performed By: #### L 100.0100, L500.4050 ####[facility] [address] [place], [address] Monocytes/100 WBC (Bld) 12.1 % High 0-10 [facility] Comment on above: Performed By: #### L 100.0100, L500.4050 ####[facility] [address] [place], [address] Neutrophils/100 WBC (Bld) 68.2 % Normal 47-70 [facility] Comment on above: Performed By: #### L 100.0100, L500.4050 ####[facility] [address] [place], [address] Nucleated RBC (Bld) [#/Vol] 0 10*3/uL Normal 0-5 [facility] Comment on above: Performed By: #### L 100.0100, L500.4050 ####[facility] [address] [place], [address] Platelet mean volume (Bld) [Entitic vol] 11.7 fL Normal 6.2-12.0 [facility] Comment on above: Performed By: #### L 100.0100, L500.4050 ####[facility] [address] [place], [address] Platelets (Bld) [#/Vol] 127 10*3/uL Low 150-450 [facility] Comment on above: Performed By: #### L 100.0100, L500.4050 ####[facility] [address] [place], [address] RBC (Bld) [#/Vol] 2.51 10*6/uL Low 4.6-6.2 [facility] Comment on above: Performed By: #### L 100.0100, L500.4050 ####[facility] [address] [place], [address] RDW SD 57.6 fl High 35.1-43.9 [facility] Comment on above: Performed By: #### L 100.0100, L500.4050 ####[facility] [address] [place], [address] WBC (Bld) [#/Vol] 8.6 10*3/uL Normal 4.4-11.0 [facility] Comment on above: Performed By: #### L 100.0100, L500.4050 ####[facility] [address] [place], [address] Comprehensive Metabolic Prof [facility] 01-12-2025 Albumin [Mass/Vol] 2.4 g/dL Low 3.5-5.0 [facility] Comment on above: Performed By: #### L 100.0100, L500.4050 ####[facility] [address] [place], [address] Albumin/Globulin [Mass ratio] 0.9 {ratio} Normal 0.9-2.4 [facility] Comment on above: Performed By: #### L 100.0100, L500.4050 ####[facility] [address] [place], [address] ALK PHOS 332 U/L High 40-129 [facility] Comment on above: Performed By: #### L 100.0100, L500.4050 ####[facility] [address] [place], [address] ALT [Catalytic activity/Vol] 82 U/L High <=46 [facility] Comment on above: Performed By: #### L 100.0100, L500.4050 ####[facility] [address] [place], [address] AST [Catalytic activity/Vol] 148 U/L High <=37 [facility] Comment on above: Performed By: #### L 100.0100, L500.4050 ####[facility] [address] [place], [address] Bilirubin [Mass/Vol] 1.95 mg/dL High 0.00-1.30 [facility] Comment on above: Performed By: #### L 100.0100, L500.4050 ####[facility] [address] [place], [address] BUN/CRE 10.5 RATIO Normal 10-20 [facility] Comment on above: Performed By: #### L 100.0100, L500.4050 ####[facility] [address] [place], [address] Calcium [Mass/Vol] 7.6 mg/dL Normal 7.6-11.0 [facility] Comment on above: Performed By: #### L 100.0100, L500.4050 ####[facility] [address] [place], [address] Chloride [Moles/Vol] 97 mmol/L Low 98-108 [facility] Comment on above: Performed By: #### L 100.0100, L500.4050 ####[facility] [address] [place], [address] CO2 [Moles/Vol] 24.4 mmol/L Normal 21.0-32.0 [facility] Comment on above: Performed By: #### L 100.0100, L500.4050 ####[facility] [address] [place], [address] Creatinine [Mass/Vol] 0.93 mg/dL Normal 0.70-1.20 [facility] Comment on above: Performed By: #### L 100.0100, L500.4050 ####[facility] [address] [place], [address] ECRCL 99.17 ml/min Normal 50-250 [facility] Comment on above: Performed By: #### L 100.0100, L500.4050 ####[facility] [address] [place], [address] GAP 9 Normal 5-15 [facility] Comment on above: Performed By: #### L 100.0100, L500.4050 ####[facility] [address] [place], [address] GFR/1.73 sq M.predicted among non-blacks MDRD (S/P/Bld) [Vol rate/Area] 95 mL/min/{1.73_m2} Normal >60 [facility] Comment on above: Result Comment: mL/m in/1.73m2 CKD-EPI Creatinine Equation (2020) Performed By: #### L 100.0100, L500.4050 ####[facility] [address] [place], [address] Globulin (S) [Mass/Vol] 2.7 g/dL Normal 2.2-4.2 [facility] Comment on above: Performed By: #### L 100.0100, L500.4050 ####[facility] [address] [place], [address] Glucose [Mass/Vol] 241 mg/dL High 70-99 [facility] Comment on above: Performed By: #### L 100.0100, L500.4050 ####[facility] [address] [place], [address] Potassium [Moles/Vol] 3.1 mmol/L Low 3.3-5.1 [facility] Comment on above: Performed By: #### L 100.0100, L500.4050 ####[facility] [address] [place], [address] Sodium [Moles/Vol] 130 mmol/L Low 133-145 [facility] Comment on above: Performed By: #### L 100.0100, L500.4050 ####[facility] [address] [place], [address] T PROT 5.0 g/dL Low 5.9-8.4 [facility] Comment on above: Performed By: #### L 100.0100, L500.4050 ####[facility] [address] [place], [address] Urea nitrogen [Mass/Vol] 10 mg/dL Normal 4-19 [facility] Comment on above: Performed By: #### L 100.0100, L500.4050 ####[facility] [address] [place], [address] Urine Cultureon 01-12-2025 [facility] Urine Culture Urine Culture Yeast, not Mary albicans [place] Count 25,000-50,000 Normal [facility] Comment on above: Performed By: #### M 100.2200 ####[facility] [address] [place], [address] Bedside Glucoseon 01-11-2025 FINGERSTICK GLU 258 mg/dL High -[address] [place] [address] Comment on above: Result Comment: BRISA GEMENT OF PATIENT CARE PER NURSING PROTOCOL Performed By: #### L 501.080 ####[facility] [address] [place], [address] FINGERSTICK GLU 298 mg/dL High -[address] [place] [address] Comment on above: Result Comment: BRISA GEMENT OF PATIENT CARE PER NURSING PROTOCOL Performed By: #### L 501.080 ####[facility] [address] [place], [address] FINGERSTICK GLU 268 mg/dL High [address] [place] [address] Comment on above: Result Comment: BRISA GEMENT OF PATIENT CARE PER NURSING PROTOCOL Performed By: #### L 501.080 ####[facility] [address] [place], [address] FINGERSTICK GLU 251 mg/dL High [address] [place] [address] Comment on above: Result Comment: BRISA GEMENT OF PATIENT CARE PER NURSING PROTOCOL Performed By: #### L 501.080 ####[facility] [address] [place], [address] CBC W/Diff, Automatedon 01-02 Absolute Lymph 1.01 X10 3/uL Normal 0.83-4.51 [facility] Comment on above: Performed By: #### L 100.0100 ####[facility] [address] [place], [address] Absolute Neut 5.6 X10 3/uL Normal 2.0-7.7 [facility] Comment on above: Performed By: #### L 100.0100 ####[facility] [address] [place], [address] Basophils/100 WBC (Bld) 0.5 % Normal 0-1 [facility] Comment on above: Performed By: #### L 100.0100 ####[facility] [address] [place], [address] Eosinophils/100 WBC (Bld) 4.6 % Normal 0-5 [facility] Comment on above: Performed By: #### L 100.0100 ####[facility] [address] [place], [address] Erythrocyte distribution width (RBC) [Ratio] 18.6 % High 11.6-14.6 [facility] Comment on above: Performed By: #### L 100.0100 ####[facility] [address] [place], [address] Hematocrit (Bld) [Volume fraction] 21.8 % Low 40-54 [facility] Comment on above: Performed By: #### L 100.0100 ####[facility] [address] [place], [address] Hemoglobin (Bld) [Mass/Vol] 7.4 g/dL Low 13.0-16.5 [facility] Comment on above: Performed By: #### L 100.0100 ####[facility] [address] [place], [address] IG% 0.900 Normal 0.0-0.9 [facility] Comment on above: Result Comment: IG% - Immature Granulocytes (promyelocytes, myelocytes andmetamyelocytes) > 1% indicates that a LEFT SHIFT is Present. Performed By: #### L 100.0100 ####[facility] [address] [place], [address] Lymphocytes/100 WBC (Bld) 12.6 % Low 19-41 [facility] Comment on above: Performed By: #### L 100.0100 ####[facility] [address] [place], [address] MCH (RBC) [Entitic mass] 29.7 pg Normal 27.0-32.0 [facility] Comment on above: Performed By: #### L 100.0100 ####[facility] [address] [place], [address] MCHC (RBC) [Mass/Vol] 33.9 g/dL Normal 32-36 [facility] Comment on above: Performed By: #### L 100.0100 ####[facility] [address] [place], [address] MCV (RBC) [Entitic vol] 87.6 fL Normal 80-94 [facility] Comment on above: Performed By: #### L 100.0100 ####[facility] [address] [place], [address] Monocytes/100 WBC (Bld) 11.8 % High 0-10 [facility] Comment on above: Performed By: #### L 100.0100 ####[facility] [address] [place], [address] Neutrophils/100 WBC (Bld) 69.6 % Normal 47-70 [facility] Comment on above: Performed By: #### L 100.0100 ####[facility] [address] [place], [address] Nucleated RBC (Bld) [#/Vol] 0 10*3/uL Normal 0-5 [facility] Comment on above: Performed By: #### L 100.0100 ####[facility] [address] [place], [address] Platelet mean volume (Bld) [Entitic vol] 12.1 fL High 6.2-12.0 [facility] Comment on above: Performed By: #### L 100.0100 ####[facility] [address] [place], [address] Platelets (Bld) [#/Vol] 130 10*3/uL Low 150-450 [facility] Comment on above: Performed By: #### L 100.0100 ####[facility] [address] [place], [address] RBC (Bld) [#/Vol] 2.49 10*6/uL Low 4.6-6.2 [facility] Comment on above: Performed By: #### L 100.0100 ####[facility] [address] [place], [address] RDW SD 56.7 fl High 35.1-43.9 [facility] Comment on above: Performed By: #### L 100.0100 ####[facility] [address] [place], [address] WBC (Bld) [#/Vol] 8.0 10*3/uL Normal 4.4-11.0 [facility] Comment on above: Performed By: #### L 100.0100 ####[facility] [address] [place], [address] Absolute Neut Normal 2.0-7.7 [facility] Comment on above: Result Comment: This specimen has been REJECTED due to Laboratory criteria:Clotted.DSCOTT has been notified of need of recollection.01/11/25555 [facility] [place] Performed By: #### L 100.0100, L500.4050 ####[facility] [address] [place], [address] HCT Normal 40-54 [facility] Comment on above: Result Comment: This specimen has been REJECTED due to Laboratory criteria:Clotted.DSCOTT has been notified of need of recollection.01/11/25555 [facility] [place] Performed By: #### L 100.0100, L500.4050 ####[facility] [address] [place], [address] HGB Normal 13.0-16.5 [facility] Comment on above: Result Comment: This specimen has been REJECTED due to Laboratory criteria:Clotted.DSCOTT has been notified of need of recollection.01/11/25555 [facility] [place] Performed By: #### L 100.0100, L500.4050 ####[facility] [address] [place], [address] MCH Normal 27.0-32.0 [facility] Comment on above: Result Comment: This specimen has been REJECTED due to Laboratory criteria:Clotted.DSCOTT has been notified of need of recollection.01/11/25555 [facility] [place] Performed By: #### L 100.0100, L500.4050 ####[facility] [address] [place], [address] MCHC Normal 32-36 [facility] Comment on above: Result Comment: This specimen has been REJECTED due to Laboratory criteria:Clotted.DSCOTT has been notified of need of recollection.01/11/25555 [facility]ital[facility] Lill[place] Performed By: #### L 100.0100, L500.4050 ####[facility] [address] [place], [address] MCV Normal 80-94 [facility] Comment on above: Result Comment: This specimen has been REJECTED due to Laboratory criteria:Clotted.DSCOTT has been notified of need of recollection.01/11/25555 [facility] [place] Performed By: #### L 100.0100, L500.4050 ####[facility] [address] [place], [address] NEUT% Normal 47-70 [facility] Comment on above: Result Comment: This specimen has been REJECTED due to Laboratory criteria:Clotted.DSCOTT has been notified of need of recollection.01/11/25555 Vitaliy Lillie Performed By: #### L 100.0100, L500.4050 ####[facility] [address] [place], [address] PLT Normal 150-450 [facility] Comment on above: Result Comment: This specimen has been REJECTED due to Laboratory criteria:Clotted.DSCOTT has been notified of need of recollection.01/11/25555 [facility] [place] Performed By: #### L 100.0100, L500.4050 ####[facility] [address] [place], [address] RBC Normal 4.6-6.2 [facility] Comment on above: Result Comment: This specimen has been REJECTED due to Laboratory criteria:Clotted.DSCOTT has been notified of need of recollection.01/11/25555 [facility] [place] Performed By: #### L 100.0100, L500.4050 ####[facility] [address] [place], [address] RDW CV Normal 11.6-14.6 [facility] Comment on above: Result Comment: This specimen has been REJECTED due to Laboratory criteria:Clotted.DSCOTT has been notified of need of recollection.01/11/25555 Vitaliy Lillie Performed By: #### L 100.0100, L500.4050 ####[facility] [address] [place], [address] RDW SD Normal 35.1-43.9 [facility] Comment on above: Result Comment: This specimen has been REJECTED due to Laboratory criteria:Clotted.DSCOTT has been notified of need of recollection.01/11/25555 [facility] [place] Performed By: #### L 100.0100, L500.4050 ####[facility] [address] [place], [address] WBC Normal 4.4-11.0 [facility] Comment on above: Result Comment: This specimen has been REJECTED due to Laboratory criteria:Clotted.DSCOTT has been notified of need of recollection.01/11/25555 [facility] [place] Performed By: #### L 100.0100, L500.4050 ####[facility] [address] [place], [address] Comprehensive Metabolic Prof lexis 01-11-2025 Albumin [Mass/Vol] 2.2 g/dL Low 3.5-5.0 [facility] Comment on above: Performed By: #### L 100.0100, L500.4050 ####[facility] [address] [place], [address] Albumin/Globulin [Mass ratio] 0.8 {ratio} Low 0.9-2.4 [facility] Comment on above: Performed By: #### L 100.0100, L500.4050 ####[facility] [address] [place], [address] ALK PHOS 314 U/L High 40-129 [facility] Comment on above: Performed By: #### L 100.0100, L500.4050 ####[facility] [address] [place], [address] ALT [Catalytic activity/Vol] 66 U/L High <=46 [facility] Comment on above: Performed By: #### L 100.0100, L500.4050 ####[facility] [address] [place], [address] AST [Catalytic activity/Vol] 137 U/L High <=37 [facility] Comment on above: Result Comment: Hemo lysis present, Results??could be affected.?? Performed By: #### L 100.0100, L500.4050 ####[facility] [address] [place], [address] Bilirubin [Mass/Vol] 2.05 mg/dL High 0.00-1.30 [facility] Comment on above: Performed By: #### L 100.0100, L500.4050 ####[facility] [address] [place], [address] BUN/CRE 13.4 RATIO Normal 10-20 [facility] Comment on above: Performed By: #### L 100.0100, L500.4050 ####[facility] [address] [place], [address] Calcium [Mass/Vol] 7.6 mg/dL Normal 7.6-11.0 [facility] Comment on above: Performed By: #### L 100.0100, L500.4050 ####[facility] [address] [place], [address] Chloride [Moles/Vol] 99 mmol/L Normal 98-108 [facility] Comment on above: Performed By: #### L 100.0100, L500.4050 ####[facility] [address] [place], [address] CO2 [Moles/Vol] 17.3 mmol/L Low 21.0-32.0 [facility] Comment on above: Performed By: #### L 100.0100, L500.4050 ####[facility] [address] [place], [address] Creatinine [Mass/Vol] 1.18 mg/dL Normal 0.70-1.20 [facility] Comment on above: Performed By: #### L 100.0100, L500.4050 ####[facility] [address] [place], [address] ECRCL 78.27 ml/min Normal 50-250 [facility] Comment on above: Performed By: #### L 100.0100, L500.4050 ####[facility] [address] [place], [address] GAP 12 Normal 5-15 [facility] Comment on above: Performed By: #### L 100.0100, L500.4050 ####[facility] [address] [place], [address] GFR/1.73 sq M.predicted among non-blacks MDRD (S/P/Bld) [Vol rate/Area] 72 mL/min/{1.73_m2} Normal >60 [facility] Comment on above: Result Comment: mL/m in/1.73m2 CKD-EPI Creatinine Equation (2020) Performed By: #### L 100.0100, L500.4050 ####[facility] [address] [place], [address] Globulin (S) [Mass/Vol] 2.8 g/dL Normal 2.2-4.2 [facility] Comment on above: Performed By: #### L 100.0100, L500.4050 ####[facility] [address] [place], [address] Glucose [Mass/Vol] 275 mg/dL High 70-99 [facility] Comment on above: Performed By: #### L 100.0100, L500.4050 ####[facility] [address] [place], [address] Potassium [Moles/Vol] 3.5 mmol/L Normal 3.3-5.1 [facility] Comment on above: Result Comment: Hemo lysis present, Results??could be affected.?? Performed By: #### L 100.0100, L500.4050 ####[facility] [address] [place], [address] Sodium [Moles/Vol] 129 mmol/L Low 133-145 [facility] Comment on above: Performed By: #### L 100.0100, L500.4050 ####[facility] [address] [place], [address] T PROT 5.0 g/dL Low 5.9-8.4 [facility] Comment on above: Performed By: #### L 100.0100, L500.4050 ####[facility] [address] [place], [address] Urea nitrogen [Mass/Vol] 16 mg/dL Normal 4-19 [facility] Comment on above: Performed By: #### L 100.0100, L500.4050 ####[facility] [address] [place], [address] Consultation - Surgicalon Consultation - Surgical Normal [facility] Vancomycin, Random Levelon 0 01-11-2025 VANCO, RANDOM 14.8 ug/mL Normal 0.0-15.0 [facility] Comment on above: Result Comment: VANC OMYCIN STANDARD DRUG THERAPY: CRITICAL VALUE IS > 15.0 mg/LVANCOMYCIN HIGH INTENSITY THERAPY: CRITICAL VALUE IS > 20.0 mg/LPLEASE CONTACT PHARMACY SERVICES (#5758) FOR INTERPRETATIONOF RESULTS. THIS RESULT DOES NOT REPRESENT A PEAK OR TROUGHLEVEL FOR THIS DRUG. Performed By: #### L 501.8850 ####[facility] [address] [place], [place], [address] Vancomycin, Trough Levelon 0 01-11-2025 VANCO, TROUGH 21.8 ug/mL High 5.0-15.0 [facility] Comment on above: Order Comment: Comme nts: DRAW 30 MIN PRIOR TO [id number] Result Comment: Eleazar mmended goal trough ranges [...] therapy recommended for serious lifethreatening infections include:- Iuvniilyev-Zljaqbowlomy-Bmwgkeqvj (Ventilator/Healtcare Associated)-SepsisPLEASE CONTACT PHARMACY SERVICES (#3708) FOR INTERPRETATIONOF RESULTS. Performed By: #### L 501.8820 ####[facility] [address] [place], [address] Bedside Glucoseon 01-10-2025 FINGERSTICK GLU 193 mg/dL High 74-106 [facility] Comment on above: Result Comment: BRISA GEMENT OF PATIENT CARE PER NURSING PROTOCOL Performed By: #### L 501.080 ####[facility] [address] [place], [address] FINGERSTICK GLU 190 mg/dL High 74-106 [facility] Comment on above: Result Comment: BRISA GEMENT OF PATIENT CARE PER NURSING PROTOCOL Performed By: #### L 501.080 ####[facility] [address] [place], [address] FINGERSTICK GLU 195 mg/dL High 74-106 [facility] Comment on above: Result Comment: BRISA GEMENT OF PATIENT CARE PER NURSING PROTOCOL Performed By: #### L 501.080 ####[facility] [address] [place], [address] CBC W/Diff, Automatedon 06-0 Basophils/100 WBC (Bld) 0.5 % Normal 0-1 [facility] Comment on above: Order Comment: REDRA W. PREVIOUS SPECIMEN REJECTED DUE TOCONTAMINATION. 01/10/25410 Eliazar Mancia. Performed By: #### L 100.0100 ####[facility] [address] [place], [address] Eosinophils/100 WBC (Bld) 5.9 % High 0-5 [facility] Comment on above: Order Comment: REDRA W. PREVIOUS SPECIMEN REJECTED DUE TOCONTAMINATION. 01/10/25410 Eliazar Mancia. Performed By: #### L 100.0100 ####[facility] [address] [place], [address] Hematocrit (Bld) [Volume fraction] 23.1 % Low 40-54 [facility] Comment on above: Order Comment: REDRA W. PREVIOUS SPECIMEN REJECTED DUE TOCONTAMINATION. 01/10/25410 Eliazar R Mancia. Performed By: #### L 100.0100 ####[facility] [address] [place], [address] Hemoglobin (Bld) [Mass/Vol] 7.4 g/dL Low 13.0-16.5 [facility] Comment on above: Order Comment: REDRA W. PREVIOUS SPECIMEN REJECTED DUE TOCONTAMINATION. 01/10/25410 Eliazar R Mancia. Performed By: #### L 100.0100 ####[facility] [address] [place], [address] Lymphocytes/100 WBC (Bld) 8.8 % Low 19-41 [facility] Comment on above: Order Comment: REDRA W. PREVIOUS SPECIMEN REJECTED DUE TOCONTAMINATION. 01/10/25410 Eliazar R Mnacia. Performed By: #### L 100.0100 ####[facility] [address] [place], [address] MCH (RBC) [Entitic mass] 29.2 pg Normal 27.0-32.0 [facility] Comment on above: Order Comment: REDRA W. PREVIOUS SPECIMEN REJECTED DUE TOCONTAMINATION. 01/10/25410 Eliazar R Mancia. Performed By: #### L 100.0100 ####[facility] [address] [place], [address] MCV (RBC) [Entitic vol] 91.3 fL Normal 80-94 [facility] Comment on above: Order Comment: REDRA W. PREVIOUS SPECIMEN REJECTED DUE TOCONTAMINATION. 01/10/25410 Eliazar R Mancia. Performed By: #### L 100.0100 ####[facility] [address] [place], [address] Monocytes/100 WBC (Bld) 8.2 % Normal 0-10 [facility] Comment on above: Order Comment: REDRA W. PREVIOUS SPECIMEN REJECTED DUE TOCONTAMINATION. 01/10/25410 Eliazar R Mancia. Performed By: #### L 100.0100 ####[facility] [address] [place], [address] Neutrophils/100 WBC (Bld) 76.1 % High 47-70 [facility] Comment on above: Order Comment: REDRA W. PREVIOUS SPECIMEN REJECTED DUE TOCONTAMINATION. 01/10/25410 Eliazar R Mancia. Performed By: #### L 100.0100 ####[facility] [address] [place], [address] Nucleated RBC (Bld) [#/Vol] 0 10*3/uL Normal 0-5 [facility] Comment on above: Order Comment: REDRA W. PREVIOUS SPECIMEN REJECTED DUE TOCONTAMINATION. 01/10/25410 Eliazar R Mancia. Performed By: #### L 100.0100 ####[facility] [address] [place], [address] Platelets (Bld) [#/Vol] 110 10*3/uL Low 150-450 [facility] Comment on above: Order Comment: REDRA W. PREVIOUS SPECIMEN REJECTED DUE TOCONTAMINATION. 01/10/25410 Eliazar R Mancia. Performed By: #### L 100.0100 ####[facility] [address] [place], [address] RBC (Bld) [#/Vol] 2.53 10*6/uL Low 4.6-6.2 [facility] Comment on above: Order Comment: REDRA W. PREVIOUS SPECIMEN REJECTED DUE TOCONTAMINATION. 01/10/25410 Eliazar R Mancia. Performed By: #### L 100.0100 ####[facility] [address] [place], [address] Comprehensive Metabolic Prof ilon 01-10-2025 Albumin [Mass/Vol] 2.4 g/dL Low 3.5-5.0 [facility] Comment on above: Order Comment: REDRA W. PREVIOUS SPECIMEN REJECTED DUE TOCONTAMINATION. 01/10/25409 Eliazar R Mancia. Performed By: #### L 500.4050, L501.5200, L501.2300 ####[facility] [address] [place], [address] Albumin/Globulin [Mass ratio] 0.9 {ratio} Normal 0.9-2.4 [facility] Comment on above: Order Comment: REDRA W. PREVIOUS SPECIMEN REJECTED DUE TOCONTAMINATION. 01/10/25409 Eliazar R Mancia. Performed By: #### L 500.4050, L501.5200, L501.2300 ####[facility] [address] [place], [address] ALK PHOS 244 U/L High 40-129 [facility] Comment on above: Order Comment: REDRA W. PREVIOUS SPECIMEN REJECTED DUE TOCONTAMINATION. 01/10/25409 Eliazar R Mancia. Performed By: #### L 500.4050, L501.5200, [id number] ####[facility] [address] [place], [address] ALT [Catalytic activity/Vol] 54 U/L High <=46 [facility] Comment on above: Order Comment: REDRA W. PREVIOUS SPECIMEN REJECTED DUE TOCONTAMINATION. 01/10/25409 Eliazra R Mancia. Performed By: #### L 500.4050, L501.5200, L501.2300 ####[facility] [address] [place], [address] AST [Catalytic activity/Vol] 101 U/L High <=37 [facility] Comment on above: Order Comment: REDRA W. PREVIOUS SPECIMEN REJECTED DUE TOCONTAMINATION. 01/10/25409 Eliazar R Mancia. Performed By: #### L 500.4050, L501.5200, [id number] ####[facility] [address] [place], [address] Bilirubin [Mass/Vol] 1.57 mg/dL High 0.00-1.30 [facility] Comment on above: Order Comment: REDRA W. PREVIOUS SPECIMEN REJECTED DUE TOCONTAMINATION. 01/10/25409 Eliazar R Mancia. Performed By: #### L 500.4050, L501.5200, [id number] ####[facility] [address] [place], [address] BUN/CRE 13.7 RATIO Normal 10-20 [facility] Comment on above: Order Comment: REDRA W. PREVIOUS SPECIMEN REJECTED DUE TOCONTAMINATION. 01/10/25409 Eliazar R Mancia. Performed By: #### L 500.4050, L501.5200, L501.2300 ####[facility] [address] [place], [address] Calcium [Mass/Vol] 7.8 mg/dL Normal 7.6-11.0 [facility] Comment on above: Order Comment: REDRA W. PREVIOUS SPECIMEN REJECTED DUE TOCONTAMINATION. 01/10/25409 Eliazar R Mancia. Performed By: #### L 500.4050, L501.5200, [id number] ####[facility] [address] [place], [address] Chloride [Moles/Vol] 101 mmol/L Normal 98-108 [facility] Comment on above: Order Comment: REDRA W. PREVIOUS SPECIMEN REJECTED DUE TOCONTAMINATION. 01/10/25409 Eliazar R Mancia. Performed By: #### L 500.4050, L501.5200, L501.2300 ####[facility] [address] [place], [address] CO2 [Moles/Vol] 13.1 mmol/L Low 21.0-32.0 [facility] Comment on above: Order Comment: REDRA W. PREVIOUS SPECIMEN REJECTED DUE TOCONTAMINATION. 01/10/25409 Eliazar R Mancia. Performed By: #### L 500.4050, L501.5200, L501.2300 ####[facility] [address] [place], [address] Creatinine [Mass/Vol] 1.95 mg/dL High 0.70-1.20 [facility] Comment on above: Order Comment: REDRA W. PREVIOUS SPECIMEN REJECTED DUE TOCONTAMINATION. 01/10/25409 Eliazar R Mancia. Performed By: #### L 500.4050, L501.5200, [id number] ####[facility] [address] [place], [address] ECRCL 45.71 ml/min Low 50-250 [facility] Comment on above: Order Comment: REDRA W. PREVIOUS SPECIMEN REJECTED DUE TOCONTAMINATION. 01/10/25409 Eliazar Mancia. Performed By: #### L 500.4050, L501.5200, [id number] ####[facility] [address] [place], [address] GAP 15 Normal 5-15 [facility] Comment on above: Order Comment: REDRA W. PREVIOUS SPECIMEN REJECTED DUE TOCONTAMINATION. 01/10/25409 Eliazar R Mancia. Performed By: #### L 500.4050, L501.5200, [id number] ####[facility] [address] [place], [address] GFR/1.73 sq M.predicted among non-blacks MDRD (S/P/Bld) [Vol rate/Area] 39 mL/min/{1.73_m2} Low >60 [facility] Comment on above: Order Comment: REDRA W. PREVIOUS SPECIMEN REJECTED DUE TOCONTAMINATION. 01/10/25409 Eliazar R Mancia. Result Comment: mL/m in/1.73m2 CKD-EPI Creatinine Equation (2020) Performed By: #### L 500.4050, L501.5200, [id number] ####[facility] [address] [place], [address] Globulin (S) [Mass/Vol] 2.6 g/dL Normal 2.2-4.2 [facility] Comment on above: Order Comment: REDRA W. PREVIOUS SPECIMEN REJECTED DUE TOCONTAMINATION. 01/10/25409 Eliazar R Mancia. Performed By: #### L 500.4050, L501.5200, [id number] ####[facility] [address] [place], [address] Glucose [Mass/Vol] 247 mg/dL High 70-99 [facility] Comment on above: Order Comment: REDRA W. PREVIOUS SPECIMEN REJECTED DUE TOCONTAMINATION. 01/10/25409 Eliazar R Mancia. Performed By: #### L 500.4050, L501.5200, L501.2300 ####[facility] [address] [place], [address] Potassium [Moles/Vol] 3.4 mmol/L Normal 3.3-5.1 [facility] Comment on above: Order Comment: REDRA W. PREVIOUS SPECIMEN REJECTED DUE TOCONTAMINATION. 01/10/25409 Eliazar R Mancia. Performed By: #### L 500.4050, L501.5200, L501.2300 ####[facility] [address] [place], [address] Sodium [Moles/Vol] 129 mmol/L Low 133-145 [facility] Comment on above: Order Comment: REDRA W. PREVIOUS SPECIMEN REJECTED DUE TOCONTAMINATION. 01/10/25409 Eliazar R Mancia. Performed By: #### L 500.4050, L501.5200, L501.2300 ####[facility] [address] [place], [address] T PROT 5.0 g/dL Low 5.9-8.4 [facility] Comment on above: Order Comment: REDRA W. PREVIOUS SPECIMEN REJECTED DUE TOCONTAMINATION. 01/10/25409 Eliazar R Mancia. Performed By: #### L 500.4050, L501.5200, [id number] ####[facility] [address] [place], [address] Urea nitrogen [Mass/Vol] 27 mg/dL High 4-19 [facility] Comment on above: Order Comment: REDRA W. PREVIOUS SPECIMEN REJECTED DUE TOCONTAMINATION. 01/10/25409 Eliazar Mancia. Performed By: #### L 500.4050, L501.5200, [id number] ####[facility] [address] [place], [address] Magnesiumon 01-10-2025 Magnesium [Mass/Vol] 1.4 mg/dL Low 1.5-2.2 [facility] Comment on above: Order Comment: REDRA W. PREVIOUS SPECIMEN REJECTED DUE TOCONTAMINATION. 01/10/25409 Eliazar Mancia. Performed By: #### L 500.4050, L501.5200, [id number] ####[facility] [address] [place], [address] Phosphoruson 01-10-2025 Phosphate [Mass/Vol] 3.5 mg/dL Normal 2.7-4.5 [facility] Comment on above: Order Comment: REDRA W. PREVIOUS SPECIMEN REJECTED DUE TOCONTAMINATION. 01/10/25409 Eliazar Mancia. Performed By: #### L 500.4050, L501.5200, L501.2300 ####[facility] [address] [place], [address] Absolute lymphocyte countOrd ered By: Breann Mendez on 01-09-2025 Lymphocytes Auto (Unsp spec) [#/Vol] 0.95 10*3/uL 0.83-4.51 [facility] Anion gap in Serum or Plasma Ordered By: Remus Ungbrandon on 01-09-2025 Anion gap [Moles/Vol] 13 mmol/L 5-15 [facility] Automated lymphocyte count a s percentage of total leukocytesOrdered By: Remus Vanessa on 01-09-2025 Lymphocytes/100 WBC Auto (Unsp spec) 7.2 % Low 19-41 [facility] BUN/creatinine ratioOrdered By: Breann Mendez on 01-09-2025 Urea nitrogen/Creatinine [Mass ratio] 13.4 mg/mg 10-20 [facility] Basophil percentageOrdered B y: Remus Ungbrandon on 01-09-2025 Basophils/100 WBC (Bld) 0.4 % 0-1 [facility] Bilirubin Test strip Ql (U)O rdered By: Remus Ungbrandon on 01-09-2025 Bilirubin Ql (U) 1 mg/dL High Negative [facility] Bilirubin, totalOrdered By: Rem Ungbrandon on 01-09-2025 Bilirubin [Mass/Vol] 1.15 mg/dL 0.00-1.30 [facility] Blood cultureOrdered By: Rem us Ungbrandon on 01-09-2025 Bacteria identified Cx Nom (Bld) No growth in 5 days. [facility] Bacteria identified Cx Nom (Bld) No growth in 5 days. [facility] CO2 (BldV) [Moles/Vol]Ordere d By: Yaritza Leo on 01-09-2025 CO2 [Moles/Vol] 15 mmol/L Low 23-33 [facility] Carbon dioxide, total [Moles /volume] in Central venous bloodOrdered By: Breann Mendez on 01-09-2025 CO2 [Moles/Vol] 13.6 mmol/L Low 21.0-32.0 [facility] Chloride assayOrdered By: Josselyn Mendez on 01-09-2025 Chloride [Moles/Vol] 103 mmol/L 98-108 [facility] Eosinophil percentageOrdered By: Remus Ungur on 01-09-2025 Eosinophils/100 WBC (Bld) 4.2 % 0-5 [facility] Erythrocyte distribution wid th ratioOrdered By: Remus Ungbrandon on 01-09-2025 Erythrocyte distribution width (RBC) [Ratio] 18.1 % High 11.6-14.6 [facility] Erythrocyte distribution wid th standard deviationOrdered By: Remus Ungbrandon on 01-09-2025 Erythrocyte distribution width (RBC) [Ratio] 57.5 fl High 35.1-43.9 [facility] Glomerular filtration rate ( GFR) estimation/1.73 sq m using serum, plasma, or whole bOrdered By: Breann Mendez on 01-09-2025 GFR/1.73 sq M.predicted among non-blacks MDRD (S/P/Bld) [Vol rate/Area] 44 mL/min/{1.73_m2} Low >60 [facility] Hematocrit Auto (Bld) [Volum e fraction]Ordered By: Breann Mendez on 01-09-2025 Hematocrit (Bld) [Volume fraction] 24.3 % Low 40-54 [facility] Hemoglobin measurementOrdere d By: Breann Mendez on 01-09-2025 Hemoglobin (Bld) [Mass/Vol] 7.9 g/dL Low 13.0-16.5 [facility] Immature granulocytes/100 WB C Auto (Bld)Ordered By: Breann Mendez on 01-09-2025 Immature granulocytes/100 WBC (Bld) 0.900 % 0.0-0.9 [facility] Ketones Test strip Ql (U)Ord ered By: Breann Mendez on 01-09-2025 Ketones Ql (U) 5 mg/dl High Negative [facility] MCV (mean corpuscular volume ) determinationOrdered By: Breann Mendez on 01-09-2025 MCV (RBC) [Entitic vol] 90.3 fL 80-94 [facility] Mean corpuscular hemoglobin (MCH) determinationOrdered By: Breann Mendez on 01-09-2025 MCH (RBC) [Entitic mass] 29.4 pg 27.0-32.0 [facility] Monocyte percentageOrdered B y: Breann Mendez on 01-09-2025 Monocytes/100 WBC (Bld) 6.7 % 0-10 [facility] Mucus LM Ql (Urine sed)Order ed By: Breann Mendez on 01-09-2025 Mucus Ql (Urine sed) 0 SEEN /hpf [facility] Neutrophil percentageOrdered By: Breann Mendez on 01-09-2025 Neutrophils/100 WBC (Bld) 80.6 % High 47-70 [facility] Nitrite Test strip Ql (U)Ord ered By: Breann Mendez on 01-09-2025 Nitrite Ql (U) Negative Negative [facility] No Panel InformationOrdered By: Yaritza Leo on 01-09-2025 TRAMAINE [facility] Not entered [facility] No Panel InformationOrdered By: Breann Mendez on 01-09-2025 68 U/L High <38 [facility] Platelet countOrdered By: Josselyn Mendez on 01-09-2025 Platelets (Bld) [#/Vol] 114 10*3/uL Low 150-450 [facility] Potassium measurement (mass/ volume)Ordered By: Breann Mendez on 01-09-2025 Potassium (Unsp spec) [Mass/Vol] 3.6 mmol/L 3.3-5.1 [facility] Protein Test strip Ql (U)Ord ered By: Breann Mendez on 01-09-2025 Protein Ql (U) 500 mg/dl High Negative [facility] RBC Auto (Bld) [#/Vol]Ordere d By: Breann Mendez on 01-09-2025 RBC (Bld) [#/Vol] 2.69 10*6/uL Low 4.6-6.2 [facility] [place] Serum creatinine measurement (mass/volume)Ordered By: Breann Mendez on 01-09-2025 Creatinine [Mass/Vol] 1.77 mg/dL High 0.70-1.20 [facility] Serum globulin measurementOr dered By: Breann Mendez on 01-09-2025 Globulin (S) [Mass/Vol] 2.9 g/dL 2.2-4.2 [facility] Serum glucose measurement (m ass/volume)Ordered By: Breann Mendez on 01-09-2025 Glucose [Mass/Vol] 149 mg/dL High 70-99 [facility] Serum or plasma alanine thomas otransferase (ALT) measurementOrdered By: Breann Mendez on 01-09-2025 ALT [Catalytic activity/Vol] 42 U/L <47 [facility] Serum or plasma albumin roosevelt urement (mass/volume)Ordered By: Breann Mendez on 01-09-2025 Albumin [Mass/Vol] 2.4 g/dL Low 3.5-5.0 [facility] Serum or plasma albumin/glob ulin mass ratioOrdered By: Breann Mendez on 01-09-2025 Albumin/Globulin [Mass ratio] 0.8 {ratio} Low 0.9-2.4 [facility] Serum or plasma alkaline kendrick sphatase measurementOrdered By: Breann Mendez on 01-09-2025 ALP [Catalytic activity/Vol] 196 U/L High 40-129 [facility] Serum or plasma calcium roosevelt urement (mass/volume)Ordered By: Breann Mendez on 01-09-2025 Calcium [Mass/Vol] 8.4 mg/dL 7.6-11.0 [facility] Serum or plasma creatine kin ase activityOrdered By: Yaritza Leo on 01-09-2025 CK [Catalytic activity/Vol] 34 U/L 24-195 [facility] Serum or plasma urea nitroge n measurement (mass/volume)Ordered By: Breann Mendez on 01-09-2025 Urea nitrogen [Mass/Vol] 24 mg/dL High 4-19 [facility] Sodium levelOrdered By: Veena Mendez on 01-09-2025 Sodium [Moles/Vol] 129 mmol/L Low 133-145 [facility] Squamous epithelial cells de tection in urine sediment by light microscopyOrdered By: Breann Mendez on 01-09-2025 Epithelial cells.squamous LM Ql (Urine sed) 0-5 SEEN /hpf 0-5 [facility] Total proteinOrdered By: Ramona Mendez on 01-09-2025 Protein [Mass/Vol] 5.3 g/dL Low 5.9-8.4 [facility] Urine clarityOrdered By: Ramona Mendez on 01-09-2025 Clarity (U) Turbid Clear [facility] Urine color determinationOrd ered By: Breann Mendez on 01-09-2025 Color (U) Red Yellow [facility] Urine cultureOrdered By: Ramona Mendez on 01-09-2025 Bacteria identified Cx Nom (U) Yeast, not Mary albicans Abnormal [facility] Urine glucose detectionOrder ed By: Breann Mendez on 01-09-2025 Glucose Ql (U) Normal mg/dl Normal [facility] Urine leukocyte esterase det ection by dipstickOrdered By: Breann Mendez on 01-09-2025 Leukocyte esterase Test strip Ql (U) 500 /ul High Negative [facility] Urine pHOrdered By: Breann Landers gur on 01-09-2025 pH (U) 6.0 [pH] 5.0 - 8.0 [facility] Urine sediment bacteria coun t by microscopy (number/high power field)Ordered By: Breann Mendez on 01-09-2025 Bacteria LM.HPF (Urine sed) [#/Area] 0 /[HPF] None Seen [facility] Urine specific gravity measu rementOrdered By: Breann Mendez on 01-09-2025 Specific gravity (U) [Rel density] 1.015 1.002-1.030 [facility] Urine urobilinogen measureme ntOrdered By: Breann Mendez on 01-09-2025 Urobilinogen Ql (U) Normal mg/dl Normal [facility] Venous blood ammonia measure mentOrdered By: Lupillo Robbins on 01-09-2025 Ammonia (P) [Moles/Vol] 61.1 umol/L High 16-60 [facility] Venous blood base excess wei surementOrdered By: Yaritza Leo on 01-09-2025 Base excess Calc (BldV) [Moles/Vol] -11 mmol/L Low -1.0-3.5 [facility] Venous blood bicarbonate wei surementOrdered By: Yaritza Leo on 01-09-2025 HCO3 (Bld) [Moles/Vol] 14 mmol/L Low 22-26 [facility] Venous blood pH measurementO rdered By: Yaritza Leo on 01-09-2025 pH (BldV) 7.36 [pH] 7.32-7.42 [facility] Venous blood partial pressur e of carbon dioxide measurementOrdered By: Yaritza Leo on 01-09-2025 CO2 (BldV) [Partial pressure] 24.7 mm[Hg] Low 41-51 [facility] Venous blood partial pressur e of oxygen measurementOrdered By: Yaritza Leo on 01-09-2025 Oxygen (BldV) [Partial pressure] 49 mm[Hg] High 25-40 [facility] White blood cell (WBC) count Ordered By: Breann Mendez on 01-09-2025 WBC (Bld) [#/Vol] 13.2 10*3/uL High 4.4-11.0 [facility] [place] White blood cell countOrdere d By: Breann Mendez on 01-09-2025 White blood cell count 50-100 SEEN /hpf 0-5 [facility] Absolute lymphocyte countOrd ered By: Hill Acuña on 01-05-2025 Lymphocytes Auto (Unsp spec) [#/Vol] 0.94 10*3/uL 0.83-4.51 [facility] Anion gap in Serum or Plasma Ordered By: Hill Acuña on 01-05-2025 Anion gap [Moles/Vol] 9 mmol/L 5-15 [facility] Automated lymphocyte count a s percentage of total leukocytesOrdered By: Hill Acuña on 01-05-2025 Lymphocytes/100 WBC Auto (Unsp spec) 13.4 % Low 19-41 [facility] BUN/creatinine ratioOrdered By: Hill Acuña on 01-05-2025 Urea nitrogen/Creatinine [Mass ratio] 11.9 mg/mg 10-20 [facility] Basophil percentageOrdered B y: Hill Acuña on 01-05-2025 Basophils/100 WBC (Bld) 0.4 % 0-1 [facility] Carbon dioxide, total [Moles /volume] in Central venous bloodOrdered By: Hill Acuña on 01-05-2025 CO2 [Moles/Vol] 18.5 mmol/L Low 21.0-32.0 [facility] Chloride assayOrdered By: Kvng Acuña on 01-05-2025 Chloride [Moles/Vol] 101 mmol/L 98-108 [facility] Eosinophil percentageOrdered By: Hill Acuña on 01-05-2025 Eosinophils/100 WBC (Bld) 5.1 % High 0-5 [facility] Erythrocyte distribution wid th ratioOrdered By: Hill Acuña on 01-05-2025 Erythrocyte distribution width (RBC) [Ratio] 16.4 % High 11.6-14.6 [facility] Erythrocyte distribution wid th standard deviationOrdered By: Hill Acuña on 01-05-2025 Erythrocyte distribution width (RBC) [Ratio] 51.8 fl High 35.1-43.9 [facility] Glomerular filtration rate ( GFR) estimation/1.73 sq m using serum, plasma, or whole bOrdered By: Hill Acuña on 01-05-2025 GFR/1.73 sq M.predicted among non-blacks MDRD (S/P/Bld) [Vol rate/Area] 92 mL/min/{1.73_m2} >60 [facility] deOrdered By: Hill Acuña on 01-05-2025 Glucose [Mass/Vol] 163 mg/dL High 74-106 [facility] Glucose [Mass/Vol] 191 mg/dL High 74-106 [facility] Hematocrit Auto (Bld) [Volum e fraction]Ordered By: Hill Acuña on 01-05-2025 Hematocrit (Bld) [Volume fraction] 22.3 % Low 40-54 [facility] Hemoglobin measurementOrdere d By: Hill Acuña on 01-05-2025 Hemoglobin (Bld) [Mass/Vol] 7.5 g/dL Low 13.0-16.5 [facility] Immature granulocytes/100 WB C Auto (Bld)Ordered By: Hill Acuña on 01-05-2025 Immature granulocytes/100 WBC (Bld) 0.400 % 0.0-0.9 [facility] MCV (mean corpuscular volume ) determinationOrdered By: Hill Acuña on 01-05-2025 MCV (RBC) [Entitic vol] 86.4 fL 80-94 [facility] Mean corpuscular hemoglobin (MCH) determinationOrdered By: Hill Acuña on 01-05-2025 MCH (RBC) [Entitic mass] 29.1 pg 27.0-32.0 [facility] Monocyte percentageOrdered B y: Hill Acuña on 01-05-2025 Monocytes/100 WBC (Bld) 11.6 % High 0-10 [facility] Neutrophil percentageOrdered By: Hill Acuña on 01-05-2025 Neutrophils/100 WBC (Bld) 69.1 % 47-70 [facility] Platelet countOrdered By: Kvng Acuña on 01-05-2025 Platelets (Bld) [#/Vol] 81 10*3/uL Low 150-450 [facility] Potassium measurement (mass/ volume)Ordered By: Hill Acuña on 01-05-2025 Potassium (Unsp spec) [Mass/Vol] 3.6 mmol/L 3.3-5.1 [facility] RBC Auto (Bld) [#/Vol]Ordere d By: Hill Acuña on 01-05-2025 RBC (Bld) [#/Vol] 2.58 10*6/uL Low 4.6-6.2 [facility] Serum creatinine measurement (mass/volume)Ordered By: Hill Acuña on 01-05-2025 Creatinine [Mass/Vol] 0.95 mg/dL 0.70-1.20 [facility] Serum glucose measurement (m ass/volume)Ordered By: Hill Acuña on 01-05-2025 Glucose [Mass/Vol] 356 mg/dL High 70-99 [facility] Serum or plasma calcium roosevelt urement (mass/volume)Ordered By: Hill Acuña on 01-05-2025 Calcium [Mass/Vol] 7.9 mg/dL 7.6-11.0 [facility] Serum or plasma urea nitroge n measurement (mass/volume)Ordered By: Hill Acuña on 01-05-2025 Urea nitrogen [Mass/Vol] 11 mg/dL 4-19 [facility] Sodium levelOrdered By: Paulino Acuña on 01-05-2025 Sodium [Moles/Vol] 128 mmol/L Low 133-145 [facility] White blood cell (WBC) count Ordered By: Hill Acuña on 01-05-2025 WBC (Bld) [#/Vol] 7.0 10*3/uL 4.4-11.0 [facility] Bilirubin, totalOrdered By: Hill Acuña on 01-04-2025 Bilirubin [Mass/Vol] 0.90 mg/dL 0.00-1.30 [facility] Blood manual differential co mment interpretation (narrative result)Ordered By: Hill Acuña on 01-04-2025 Manual differential comment Marco Antonio (Bld) [Interp] SCANNED [facility] Magnesium measurement (mass/ volume)Ordered By: Hill Acuña on 01-04-2025 Magnesium (Unsp spec) [Mass/Vol] 1.3 mg/dL Low 1.5-2.2 [facility] No Panel InformationOrdered By: Hill Acuña on 01-04-2025 54 U/L High <38 [facility] Serum globulin measurementOr dered By: Hill Acuña on 01-04-2025 Globulin (S) [Mass/Vol] 2.9 g/dL 2.2-4.2 [facility] Serum or plasma alanine thomas otransferase (ALT) measurementOrdered By: Hill Acuña on 01-04-2025 ALT [Catalytic activity/Vol] 26 U/L <47 [facility] Serum or plasma albumin roosevelt urement (mass/volume)Ordered By: Hill Acuña on 01-04-2025 Albumin [Mass/Vol] 2.4 g/dL Low 3.5-5.0 [facility] Serum or plasma albumin/glob ulin mass ratioOrdered By: Hill Acuña on 01-04-2025 Albumin/Globulin [Mass ratio] 0.9 {ratio} 0.9-2.4 [facility] Serum or plasma alkaline kendrick sphatase measurementOrdered By: Hill Acuña on 01-04-2025 ALP [Catalytic activity/Vol] 171 U/L High 40-129 [facility] Total proteinOrdered By: Hugo Acuña on 01-04-2025 Protein [Mass/Vol] 5.3 g/dL Low 5.9-8.4 [facility] Absolute lymphocyte countOrd ered By: Roddy Reeves on 01-02-2025 Lymphocytes Auto (Unsp spec) [#/Vol] 1.55 10*3/uL 0.83-4.51 [facility] Anion gap in Serum or Plasma Ordered By: Roddy Reeves on 01-02-2025 Anion gap [Moles/Vol] 17 mmol/L High 5-15 [facility] Automated lymphocyte count a s percentage of total leukocytesOrdered By: Roddy Reeves on 01-02-2025 Lymphocytes/100 WBC Auto (Unsp spec) 12.2 % Low 19-41 [facility] BUN/creatinine ratioOrdered By: Roddy Reeves on 01-02-2025 Urea nitrogen/Creatinine [Mass ratio] 12.9 mg/mg 10-20 [facility] Basophil percentageOrdered B y: Roddy Reeves on 01-02-2025 Basophils/100 WBC (Bld) 0.4 % 0-1 [facility] Bilirubin Test strip Ql (U)O rdered By: Roddy Reeves on 01-02-2025 Bilirubin Ql (U) Negative Negative [facility] Bilirubin, totalOrdered By: Roddy Reeves on 01-02-2025 Bilirubin [Mass/Vol] 0.90 mg/dL 0.00-1.30 [facility] Carbon dioxide, total [Moles /volume] in Central venous bloodOrdered By: Roddy Reeves on 01-02-2025 CO2 [Moles/Vol] 19.6 mmol/L Low 21.0-32.0 [facility] Chloride assayOrdered By: Catrachito Reeves on 01-02-2025 Chloride [Moles/Vol] 95 mmol/L Low 98-108 [facility] Eosinophil percentageOrdered By: Roddy Reeves on 01-02-2025 Eosinophils/100 WBC (Bld) 6.9 % High 0-5 [facility] Erythrocyte distribution wid th ratioOrdered By: Roddy Reeves on 01-02-2025 Erythrocyte distribution width (RBC) [Ratio] 16.4 % High 11.6-14.6 [facility] Erythrocyte distribution wid th standard deviationOrdered By: Roddy Reeves on 01-02-2025 Erythrocyte distribution width (RBC) [Ratio] 51.1 fl High 35.1-43.9 [facility] Glomerular filtration rate ( GFR) estimation/1.73 sq m using serum, plasma, or whole bOrdered By: Roddy Reeves on 01-02-2025 GFR/1.73 sq M.predicted among non-blacks MDRD (S/P/Bld) [Vol rate/Area] 19 mL/min/{1.73_m2} Low >60 [facility] Hematocrit Auto (Bld) [Volum e fraction]Ordered By: Roddy Reeves on 01-02-2025 Hematocrit (Bld) [Volume fraction] 28.0 % Low 40-54 [facility] Hemoglobin measurementOrdere d By: Roddy Reeves on 01-02-2025 Hemoglobin (Bld) [Mass/Vol] 9.5 g/dL Low 13.0-16.5 [facility] Immature granulocytes/100 WB C Auto (Bld)Ordered By: Roddy Reeves on 01-02-2025 Immature granulocytes/100 WBC (Bld) 0.600 % 0.0-0.9 [facility] Ketones Test strip Ql (U)Ord ered By: Roddy Reeves on 01-02-2025 Ketones Ql (U) 5 mg/dl High Negative [facility] MCV (mean corpuscular volume ) determinationOrdered By: Roddy Reeves on 01-02-2025 MCV (RBC) [Entitic vol] 87.2 fL 80-94 [facility] Magnesium measurement (mass/ volume)Ordered By: Roddy Reeves on 01-02-2025 Magnesium (Unsp spec) [Mass/Vol] 2.0 mg/dL 1.5-2.2 [facility] Mean corpuscular hemoglobin (MCH) determinationOrdered By: Roddy Reeves on 01-02-2025 MCH (RBC) [Entitic mass] 29.6 pg 27.0-32.0 [facility] Monocyte percentageOrdered B y: Roddy Reeves on 01-02-2025 Monocytes/100 WBC (Bld) 11.9 % High 0-10 [facility] Mucus LM Ql (Urine sed)Order ed By: Roddy Reeves on 01-02-2025 Mucus Ql (Urine sed) 0 SEEN /hpf [facility] Neutrophil percentageOrdered By: Roddy Reeves on 01-02-2025 Neutrophils/100 WBC (Bld) 68.0 % 47-70 [facility] Nitrite Test strip Ql (U)Ord ered By: Roddy Reeves on 01-02-2025 Nitrite Ql (U) Negative Negative [facility] No Panel InformationOrdered By: Roddy Reeves on 01-02-2025 37 U/L <38 [facility] Platelet countOrdered By: Catrachito Reeves on 01-02-2025 Platelets (Bld) [#/Vol] 171 10*3/uL 150-450 [facility] Potassium measurement (mass/ volume)Ordered By: Roddy Reeves on 01-02-2025 Potassium (Unsp spec) [Mass/Vol] 2.6 mmol/L Low 3.3-5.1 [facility] Protein Test strip Ql (U)Ord ered By: Roddy Reeves on 01-02-2025 Protein Ql (U) 100 mg/dl High Negative [facility] RBC Auto (Bld) [#/Vol]Ordere d By: Roddy Reeves on 01-02-2025 RBC (Bld) [#/Vol] 3.21 10*6/uL Low 4.6-6.2 [facility] [place] Serum creatinine measurement (mass/volume)Ordered By: Roddy Reeves on 01-02-2025 Creatinine [Mass/Vol] 3.54 mg/dL High 0.70-1.20 [facility] Serum globulin measurementOr dered By: Roddy Reeves on 01-02-2025 Globulin (S) [Mass/Vol] 3.4 g/dL 2.2-4.2 [facility] Serum glucose measurement (m ass/volume)Ordered By: Roddy Reeves on 01-02-2025 Glucose [Mass/Vol] 164 mg/dL High 70-99 [facility] Serum or plasma alanine thomas otransferase (ALT) measurementOrdered By: Roddy Reeves on 01-02-2025 ALT [Catalytic activity/Vol] 23 U/L <47 [facility] Serum or plasma albumin roosevelt urement (mass/volume)Ordered By: Roddy Reeves on 01-02-2025 Albumin [Mass/Vol] 2.8 g/dL Low 3.5-5.0 [facility] Serum or plasma albumin/glob ulin mass ratioOrdered By: Roddy Reeves on 01-02-2025 Albumin/Globulin [Mass ratio] 0.8 {ratio} Low 0.9-2.4 [facility] Serum or plasma alkaline kendrick sphatase measurementOrdered By: Roddy Reeves on 01-02-2025 ALP [Catalytic activity/Vol] 191 U/L High 40-129 [facility] Serum or plasma calcium roosevelt urement (mass/volume)Ordered By: Roddy Reeves on 01-02-2025 Calcium [Mass/Vol] 9.0 mg/dL 7.6-11.0 [facility] Serum or plasma ethanol roosevelt urement (mass/volume)Ordered By: Roddy Reeves on 01-02-2025 Ethanol [Mass/Vol] mg/dL <10.1 [facility] Serum or plasma urea nitroge n measurement (mass/volume)Ordered By: Roddy Reeves on 01-02-2025 Urea nitrogen [Mass/Vol] 46 mg/dL High 4-19 [facility] Sodium levelOrdered By: Valentín Reeves on 01-02-2025 Sodium [Moles/Vol] 132 mmol/L Low 133-145 [facility] Squamous epithelial cells de tection in urine sediment by light microscopyOrdered By: Roddy Reeves on 01-02-2025 Epithelial cells.squamous LM Ql (Urine sed) 0 SEEN /hpf 0-5 [facility] Total proteinOrdered By: Zoila Reeves on 01-02-2025 Protein [Mass/Vol] 6.1 g/dL 5.9-8.4 [facility] Urine clarityOrdered By: Zoila Reeves on 01-02-2025 Clarity (U) Turbid Clear [facility] Urine color determinationOrd ered By: Roddy Reeves on 01-02-2025 Color (U) Red Yellow [facility] Urine cultureOrdered By: Zoila Reeves on 01-02-2025 Bacteria identified Cx Nom (U) Yeast, not Mary albicans Abnormal [facility] Urine glucose detectionOrder ed By: Roddy Reeves on 01-02-2025 Glucose Ql (U) Normal mg/dl Normal [facility] Urine leukocyte esterase det ection by dipstickOrdered By: Roddy Reeves on 01-02-2025 Leukocyte esterase Test strip Ql (U) 500 /ul High Negative [facility] Urine pHOrdered By: Roddy gonzalez on 01-02-2025 pH (U) 6.0 [pH] 5.0 - 8.0 [facility] Urine sediment bacteria coun t by microscopy (number/high power field)Ordered By: Roddy Reeves on 01-02-2025 Bacteria LM.HPF (Urine sed) [#/Area] 3 /[HPF] None Seen [facility] Urine specific gravity measu rementOrdered By: Roddy Reeves on 01-02-2025 Specific gravity (U) [Rel density] 1.015 1.002-1.030 [facility] Urine urobilinogen measureme ntOrdered By: Roddy Reeves on 01-02-2025 Urobilinogen Ql (U) Normal mg/dl Normal [facility] Venous blood ammonia measure mentOrdered By: Roddy Reeves on 01-02-2025 Ammonia (P) [Moles/Vol] 40.4 umol/L 16-60 [facility] White blood cell (WBC) count Ordered By: Roddy Reeves on 01-02-2025 WBC (Bld) [#/Vol] 12.7 10*3/uL High 4.4-11.0 [facility] [place] White blood cell countOrdere d By: Roddy Reeves on 01-02-2025 White blood cell count 25-50 SEEN /hpf 0-5 [facility] Absolute lymphocyte countOrd ered By: Mina Blood on 12-30-2024 Lymphocytes Auto (Unsp spec) [#/Vol] 1.31 10*3/uL 0.83-4.51 [facility] Anion gap in Serum or Plasma Ordered By: Mina Blood on 12-30-2024 Anion gap [Moles/Vol] 15 mmol/L 5-15 [facility] Automated lymphocyte count a s percentage of total leukocytesOrdered By: Mina Blood on 12-30-2024 Lymphocytes/100 WBC Auto (Unsp spec) 14.0 % Low 19-41 [facility] BUN/creatinine ratioOrdered By: Mina Blood on 12-30-2024 Urea nitrogen/Creatinine [Mass ratio] 14.1 mg/mg 10-20 [facility] Basophil percentageOrdered B y: Mina Blood on 12-30-2024 Basophils/100 WBC (Bld) 0.4 % 0-1 [facility] Bilirubin Test strip Ql (U)O rdered By: Mina Blood on 12-30-2024 Bilirubin Ql (U) Negative Negative [facility] Carbon dioxide, total [Moles /volume] in Central venous bloodOrdered By: Mina Blood on 12-30-2024 CO2 [Moles/Vol] 22.1 mmol/L 21.0-32.0 [facility] Chloride assayOrdered By: Marcella Blood on 12-30-2024 Chloride [Moles/Vol] 91 mmol/L Low 98-108 [facility] Eosinophil percentageOrdered By: Mina Blood on 12-30-2024 Eosinophils/100 WBC (Bld) 6.2 % High 0-5 [facility] Erythrocyte distribution wid th ratioOrdered By: Mina Blood on 12-30-2024 Erythrocyte distribution width (RBC) [Ratio] 16.1 % High 11.6-14.6 [facility] Erythrocyte distribution wid th standard deviationOrdered By: Mina Blood on 12-30-2024 Erythrocyte distribution width (RBC) [Ratio] 50.9 fl High 35.1-43.9 [facility] Glomerular filtration rate ( GFR) estimation/1.73 sq m using serum, plasma, or whole bOrdered By: Mina Blood on 12-30-2024 GFR/1.73 sq M.predicted among non-blacks MDRD (S/P/Bld) [Vol rate/Area] 37 mL/min/{1.73_m2} Low >60 [facility] deOrdered By: Mina Blood on 12-30-2024 Glucose [Mass/Vol] 453 mg/dL High 74-106 [facility] Hematocrit Auto (Bld) [Volum e fraction]Ordered By: Mina Blood on 12-30-2024 Hematocrit (Bld) [Volume fraction] 25.8 % Low 40-54 [facility] Hemoglobin measurementOrdere d By: Mina Blood on 12-30-2024 Hemoglobin (Bld) [Mass/Vol] 8.7 g/dL Low 13.0-16.5 [facility] Immature granulocytes/100 WB C Auto (Bld)Ordered By: Mina Blood on 12-30-2024 Immature granulocytes/100 WBC (Bld) 0.600 % 0.0-0.9 [facility] Ketones Test strip Ql (U)Ord ered By: Mina Blood on 12-30-2024 Ketones Ql (U) Negative Negative [facility] MCV (mean corpuscular volume ) determinationOrdered By: Mina Blood on 12-30-2024 MCV (RBC) [Entitic vol] 88.1 fL 80-94 [facility] Magnesium measurement (mass/ volume)Ordered By: Mina Blood on 12-30-2024 Magnesium (Unsp spec) [Mass/Vol] 1.3 mg/dL Low 1.5-2.2 [facility] Mean corpuscular hemoglobin (MCH) determinationOrdered By: Mina Blood on 12-30-2024 MCH (RBC) [Entitic mass] 29.7 pg 27.0-32.0 [facility] Monocyte percentageOrdered B y: Mina Blood on 12-30-2024 Monocytes/100 WBC (Bld) 9.1 % 0-10 [facility] Mucus LM Ql (Urine sed)Order ed By: Mina Blood on 12-30-2024 Mucus Ql (Urine sed) 0 SEEN /hpf [facility] Neutrophil percentageOrdered By: Mina Blood on 12-30-2024 Neutrophils/100 WBC (Bld) 69.7 % 47-70 [facility] Nitrite Test strip Ql (U)Ord ered By: Mina Blood on 12-30-2024 Nitrite Ql (U) Negative Negative [facility] Platelet countOrdered By: Marcella Blood on 12-30-2024 Platelets (Bld) [#/Vol] 131 10*3/uL Low 150-450 [facility] Potassium measurement (mass/ volume)Ordered By: Mina Blood on 12-30-2024 Potassium (Unsp spec) [Mass/Vol] 3.2 mmol/L Low 3.3-5.1 [facility] Protein Test strip Ql (U)Ord ered By: Mina Blood on 12-30-2024 Protein Ql (U) 100 mg/dl High Negative [facility] RBC Auto (Bld) [#/Vol]Ordere d By: Mina Blood on 12-30-2024 RBC (Bld) [#/Vol] 2.93 10*6/uL Low 4.6-6.2 [facility] [place] Serum creatinine measurement (mass/volume)Ordered By: Mina Blood on 12-30-2024 Creatinine [Mass/Vol] 2.05 mg/dL High 0.70-1.20 [facility] Serum glucose measurement (m ass/volume)Ordered By: Mina Blood on 12-30-2024 Glucose [Mass/Vol] 608 mg/dL High 70-99 [facility] Serum or plasma calcium roosevelt urement (mass/volume)Ordered By: Mina Blood on 12-30-2024 Calcium [Mass/Vol] 9.1 mg/dL 7.6-11.0 [facility] Serum or plasma urea nitroge n measurement (mass/volume)Ordered By: Mina Blood on 12-30-2024 Urea nitrogen [Mass/Vol] 29 mg/dL High 4-19 [facility] Sodium levelOrdered By: Magen Blood on 12-30-2024 Sodium [Moles/Vol] 128 mmol/L Low 133-145 [facility] Squamous epithelial cells de tection in urine sediment by light microscopyOrdered By: Mina Blood on 12-30-2024 Epithelial cells.squamous LM Ql (Urine sed) 0-5 SEEN /hpf 0-5 [facility] Transitional cells detection in urine sediment by light microscopyOrdered By: Mina Blood on 12-30-2024 Transitional cells LM Ql (Urine sed) 0-5 SEEN /hpf 0-5 [facility] Troponin T.cardiac [Mass/vol ume] in Serum or Plasma by High sensitivity methodOrdered By: Mina Blood on 12-30-2024 Troponin T.cardiac High sensitivity method [Mass/Vol] 20 ng/L <22 [facility] Troponin T.cardiac High sensitivity method [Mass/Vol] 19 ng/L <22 [facility] Urine clarityOrdered By: Ever Blood on 12-30-2024 Clarity (U) Cloudy Clear [facility] Urine color determinationOrd ered By: Mina Blood on 12-30-2024 Color (U) Lexis Yellow [facility] Urine cultureOrdered By: Ever Blood on 12-30-2024 Bacteria identified Cx Nom (U) GPC Poss Enterococcus sp Abnormal [facility] Bacteria identified Cx Nom (U) Positive Abnormal [facility] Urine glucose detectionOrder ed By: Mina Blood on 12-30-2024 Glucose Ql (U) 1000 mg/dl High Normal [facility] Urine leukocyte esterase det ection by dipstickOrdered By: Mina Blood on 12-30-2024 Leukocyte esterase Test strip Ql (U) 500 /ul High Negative [facility] Urine pHOrdered By: Mina ferrer on 12-30-2024 pH (U) 6.5 [pH] 5.0 - 8.0 [facility] Urine sediment bacteria coun t by microscopy (number/high power field)Ordered By: Mina Blood on 12-30-2024 Bacteria LM.HPF (Urine sed) [#/Area] 1 /[HPF] None Seen [facility] Urine specific gravity measu rementOrdered By: Mina Blood on 12-30-2024 Specific gravity (U) [Rel density] 1.010 1.002-1.030 [facility] Urine urobilinogen measureme ntOrdered By: Mina Blood on 12-30-2024 Urobilinogen Ql (U) Normal mg/dl Normal [facility] White blood cell (WBC) count Ordered By: Mina Blood on 12-30-2024 WBC (Bld) [#/Vol] 9.4 10*3/uL 4.4-11.0 [facility] White blood cell countOrdere d By: Mina Blood on 12-30-2024 White blood cell count >100 SEEN /hpf 0-5 [facility] Absolute lymphocyte countOrd ered By: Boone Carvajal on 12-26-2024 Lymphocytes Auto (Unsp spec) [#/Vol] 1.69 10*3/uL 0.83-4.51 [facility] Activated partial thrombopla stin time (aPTT) in platelet poor plasma by coagulation aOrdered By: Boone Carvajal on 12-26-2024 aPTT Coag (PPP) [Time] 36.3 s High 24.1-36.2 [facility] Anion gap in Serum or Plasma Ordered By: Boone Carvajal on 12-26-2024 Anion gap [Moles/Vol] 14 mmol/L 5-15 [facility] Automated lymphocyte count a s percentage of total leukocytesOrdered By: Boone Carvajal on 12-26-2024 Lymphocytes/100 WBC Auto (Unsp spec) 15.3 % Low 19-41 [facility] BUN/creatinine ratioOrdered By: Boone Carvajal on 12-26-2024 Urea nitrogen/Creatinine [Mass ratio] 10.3 mg/mg 10-20 [facility] Basophil percentageOrdered B y: Boone Carvajal on 12-26-2024 Basophils/100 WBC (Bld) 0.5 % 0-1 [facility] Beta-hydroxybutyrateOrdered By: Boone Carvajal on 12-26-2024 Beta hydroxybutyrate [Mass/Vol] 0.1 mmol/L 0.0-0.3 [facility] Bilirubin Test strip Ql (U)O rdered By: Boone Carvajal on 12-26-2024 Bilirubin Ql (U) Negative Negative [facility] Bilirubin, totalOrdered By: Boone Carvajal on 12-26-2024 Bilirubin [Mass/Vol] 1.04 mg/dL 0.00-1.30 [facility] Carbon dioxide, total [Moles /volume] in Central venous bloodOrdered By: Boone Carvajal on 12-26-2024 CO2 [Moles/Vol] 20.4 mmol/L Low 21.0-32.0 [facility] Chloride assayOrdered By: Hunter Carvajal on 12-26-2024 Chloride [Moles/Vol] 100 mmol/L 98-108 [facility] Eosinophil percentageOrdered By: Boone Carvajal on 12-26-2024 Eosinophils/100 WBC (Bld) 5.8 % High 0-5 [facility] Erythrocyte distribution wid th ratioOrdered By: Boone Carvajal on 12-26-2024 Erythrocyte distribution width (RBC) [Ratio] 16.3 % High 11.6-14.6 [facility] Erythrocyte distribution wid th standard deviationOrdered By: Boone Carvajal on 12-26-2024 Erythrocyte distribution width (RBC) [Ratio] 54.4 fl High 35.1-43.9 [facility] Glomerular filtration rate ( GFR) estimation/1.73 sq m using serum, plasma, or whole bOrdered By: Boone Carvajal on 12-26-2024 GFR/1.73 sq M.predicted among non-blacks MDRD (S/P/Bld) [Vol rate/Area] 30 mL/min/{1.73_m2} Low >60 [facility] Hematocrit Auto (Bld) [Volum e fraction]Ordered By: Boone Carvajal on 12-26-2024 Hematocrit (Bld) [Volume fraction] 29.6 % Low 40-54 [facility] Hemoglobin measurementOrdere d By: Boone Carvajal on 12-26-2024 Hemoglobin (Bld) [Mass/Vol] 9.6 g/dL Low 13.0-16.5 [facility] Immature granulocytes/100 WB C Auto (Bld)Ordered By: Boone Carvajal on 12-26-2024 Immature granulocytes/100 WBC (Bld) 0.500 % 0.0-0.9 [facility] Ketones Test strip Ql (U)Ord ered By: Boone Carvajal on 12-26-2024 Ketones Ql (U) 5 mg/dl High Negative [facility] MCV (mean corpuscular volume ) determinationOrdered By: Boone Carvajal on 12-26-2024 MCV (RBC) [Entitic vol] 90.8 fL 80-94 [facility] Mean corpuscular hemoglobin (MCH) determinationOrdered By: Boone Carvajal on 12-26-2024 MCH (RBC) [Entitic mass] 29.4 pg 27.0-32.0 [facility] Monocyte percentageOrdered B y: Boone Carvajal on 12-26-2024 Monocytes/100 WBC (Bld) 7.4 % 0-10 [facility] Mucus LM Ql (Urine sed)Order ed By: Boone Carvajal on 12-26-2024 Mucus Ql (Urine sed) 0 SEEN /hpf [facility] Neutrophil percentageOrdered By: Boone Carvajal on 12-26-2024 Neutrophils/100 WBC (Bld) 70.5 % High 47-70 [facility] Nitrite Test strip Ql (U)Ord ered By: Boone Carvajal on 12-26-2024 Nitrite Ql (U) Negative Negative [facility] No Panel InformationOrdered By: Boone Carvajal on 12-26-2024 58 U/L High <38 [facility] Platelet countOrdered By: Hunter Carvajal on 12-26-2024 Platelets (Bld) [#/Vol] 139 10*3/uL Low 150-450 [facility] Potassium measurement (mass/ volume)Ordered By: Boone Carvajal on 12-26-2024 Potassium (Unsp spec) [Mass/Vol] 3.5 mmol/L 3.3-5.1 [facility] Protein Test strip Ql (U)Ord ered By: Boone Carvajal on 12-26-2024 Protein Ql (U) 500 mg/dl High Negative [facility] Prothrombin timeOrdered By: Boone Carvajal on 12-26-2024 PT Coag (PPP) [Time] 18.5 s High 11.7-14.9 [facility] RBC Auto (Bld) [#/Vol]Ordere d By: Boone Carvajal on 12-26-2024 RBC (Bld) [#/Vol] 3.26 10*6/uL Low 4.6-6.2 [facility] [place] Serum creatinine measurement (mass/volume)Ordered By: Boone Carvajal on 12-26-2024 Creatinine [Mass/Vol] 2.42 mg/dL High 0.70-1.20 [facility] Serum globulin measurementOr dered By: Boone Carvajal on 12-26-2024 Globulin (S) [Mass/Vol] 3.5 g/dL 2.2-4.2 [facility] Serum glucose measurement (m ass/volume)Ordered By: Boone Carvajal on 12-26-2024 Glucose [Mass/Vol] 386 mg/dL High 70-99 [facility] Serum or plasma alanine thomas otransferase (ALT) measurementOrdered By: Boone Carvajal on 12-26-2024 ALT [Catalytic activity/Vol] 27 U/L <47 [facility] Serum or plasma albumin roosevelt urement (mass/volume)Ordered By: Boone Carvajal on 12-26-2024 Albumin [Mass/Vol] 2.8 g/dL Low 3.5-5.0 [facility] Serum or plasma albumin/glob ulin mass ratioOrdered By: Boone Carvajal on 12-26-2024 Albumin/Globulin [Mass ratio] 0.8 {ratio} Low 0.9-2.4 [facility] Serum or plasma alkaline kendrick sphatase measurementOrdered By: Boone Carvajal on 12-26-2024 ALP [Catalytic activity/Vol] 207 U/L High 40-129 [facility] Serum or plasma calcium roosevelt urement (mass/volume)Ordered By: Boone Carvajal on 12-26-2024 Calcium [Mass/Vol] 8.9 mg/dL 7.6-11.0 [facility] Serum or plasma urea nitroge n measurement (mass/volume)Ordered By: Boone Carvajal on 12-26-2024 Urea nitrogen [Mass/Vol] 25 mg/dL High 4-19 [facility] Sodium levelOrdered By: Boone Carvajal on 12-26-2024 Sodium [Moles/Vol] 135 mmol/L 133-145 [facility] Squamous epithelial cells de tection in urine sediment by light microscopyOrdered By: Boone Carvajal on 12-26-2024 Epithelial cells.squamous LM Ql (Urine sed) 0 SEEN /hpf 0-5 [facility] Total proteinOrdered By: Danita Carvajal on 12-26-2024 Protein [Mass/Vol] 6.3 g/dL 5.9-8.4 [facility] Urine clarityOrdered By: Danita Carvajal on 12-26-2024 Clarity (U) Cloudy Clear [facility] Urine color determinationOrd ered By: Boone Carvajal on 12-26-2024 Color (U) Lexis Yellow [facility] Urine cultureOrdered By: Danita Carvajal on 12-26-2024 Bacteria identified Cx Nom (U) Enterococcus 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 [facility] Urine glucose detectionOrder ed By: Boone Carvajal on 12-26-2024 Glucose Ql (U) Normal mg/dl Normal [facility] Urine leukocyte esterase det ection by dipstickOrdered By: Boone Carvajal on 12-26-2024 Leukocyte esterase Test strip Ql (U) 500 /ul High Negative [facility] Urine pHOrdered By: Boone romo on 12-26-2024 pH (U) 6.0 [pH] 5.0 - 8.0 [facility] Urine sediment bacteria coun t by microscopy (number/high power field)Ordered By: Boone Carvajal on 12-26-2024 Bacteria LM.HPF (Urine sed) [#/Area] 0 /[HPF] None Seen [facility] Urine specific gravity measu rementOrdered By: Boone Carvajal on 12-26-2024 Specific gravity (U) [Rel density] 1.015 1.002-1.030 [facility] Urine urobilinogen measureme ntOrdered By: Boone Carvajal on 12-26-2024 Urobilinogen Ql (U) Normal mg/dl Normal [facility] Venous blood ammonia measure mentOrdered By: Boone Carvajal on 12-26-2024 Ammonia (P) [Moles/Vol] 114.0 umol/L High 16-60 [facility] White blood cell (WBC) count Ordered By: Boone Carvajal on 12-26-2024 WBC (Bld) [#/Vol] 11.0 10*3/uL 4.4-11.0 [facility] [place] White blood cell countOrdere d By: Boone Carvajal on 12-26-2024 White blood cell count 25-50 SEEN /hpf 0-5 [facility] Absolute lymphocyte countOrd ered By: Josy Elias on 12-07-2024 Lymphocytes Auto (Unsp spec) [#/Vol] 1.71 10*3/uL 0.83-4.51 [facility] Anion gap in Serum or Plasma Ordered By: Josy Elias on 12-07-2024 Anion gap [Moles/Vol] 12 mmol/L 5-15 [facility] Automated lymphocyte count a s percentage of total leukocytesOrdered By: Josy Elias on 12-07-2024 Lymphocytes/100 WBC Auto (Unsp spec) 18.4 % Low 19-41 [facility] BUN/creatinine ratioOrdered By: Josy Elias on 12-07-2024 Urea nitrogen/Creatinine [Mass ratio] 10.0 mg/mg 10-20 [facility] Basophil percentageOrdered B y: Josy Elias on 12-07-2024 Basophils/100 WBC (Bld) 0.6 % 0-1 [facility] Bilirubin, totalOrdered By: Josy Elias on 12-07-2024 Bilirubin [Mass/Vol] 1.21 mg/dL 0.00-1.30 [facility] CNPTOUTREACHon 12-07-2024 CNPTOUTREACH Normal [facility] Carbon dioxide, total [Moles /volume] in Central venous bloodOrdered By: Josy Elias on 12-07-2024 CO2 [Moles/Vol] 20.0 mmol/L Low 21.0-32.0 [facility] Chloride assayOrdered By: Monica Elias on 12-07-2024 Chloride [Moles/Vol] 103 mmol/L 98-108 [facility] Eosinophil percentageOrdered By: Josy Elias on 12-07-2024 Eosinophils/100 WBC (Bld) 5.1 % High 0-5 [facility] Erythrocyte distribution wid th ratioOrdered By: Josydominique Elias on 12-07-2024 Erythrocyte distribution width (RBC) [Ratio] 16.9 % High 11.6-14.6 [facility] Erythrocyte distribution wid th standard deviationOrdered By: Josydominique Elias on 12-07-2024 Erythrocyte distribution width (RBC) [Ratio] 57.4 fl High 35.1-43.9 [facility] Gamma glutamyl transferase ( GGT) measurementOrdered By: Josydominique Elias on 12-07-2024 Amylase [Catalytic activity/Vol] 103 U/L High 0-65 [facility] Glomerular filtration rate ( GFR) estimation/1.73 sq m using serum, plasma, or whole bOrdered By: Josy Elias on 12-07-2024 GFR/1.73 sq M.predicted among non-blacks MDRD (S/P/Bld) [Vol rate/Area] 44 mL/min/{1.73_m2} Low >60 [facility] Hematocrit Auto (Bld) [Volum e fraction]Ordered By: Josy Elias on 12-07-2024 Hematocrit (Bld) [Volume fraction] 26.2 % Low 40-54 [facility] Hemoglobin A1c percentageOrd ered By: Josy Elias on 12-07-2024 HbA1c (Bld) [Mass fraction] 7.2 % High <5.7 [facility] Hemoglobin measurementOrdere d By: Josy Elias on 12-07-2024 Hemoglobin (Bld) [Mass/Vol] 8.5 g/dL Low 13.0-16.5 [facility] Immature granulocytes/100 WB C Auto (Bld)Ordered By: Josy Elias on 12-07-2024 Immature granulocytes/100 WBC (Bld) 0.300 % 0.0-0.9 [facility] MCV (mean corpuscular volume ) determinationOrdered By: Josy Elias on 12-07-2024 MCV (RBC) [Entitic vol] 93.2 fL 80-94 [facility] Mean corpuscular hemoglobin (MCH) determinationOrdered By: Josy Elias on 12-07-2024 MCH (RBC) [Entitic mass] 30.2 pg 27.0-32.0 [facility] Monocyte percentageOrdered B y: Josy Elias on 12-07-2024 Monocytes/100 WBC (Bld) 12.1 % High 0-10 [facility] Neutrophil percentageOrdered By: Josy Elias on 12-07-2024 Neutrophils/100 WBC (Bld) 63.5 % 47-70 [facility] No Panel InformationOrdered By: Josy Elias on 12-07-2024 37 U/L <38 [facility] Platelet countOrdered By: Monica Elias on 12-07-2024 Platelets (Bld) [#/Vol] 145 10*3/uL Low 150-450 [facility] Potassium measurement (mass/ volume)Ordered By: Josy Elias on 12-07-2024 Potassium (Unsp spec) [Mass/Vol] 3.3 mmol/L 3.3-5.1 [facility] RBC Auto (Bld) [#/Vol]Ordere d By: Josy Elias on 12-07-2024 RBC (Bld) [#/Vol] 2.81 10*6/uL Low 4.6-6.2 [facility] [place] Serum creatinine measurement (mass/volume)Ordered By: Josy Elias on 12-07-2024 Creatinine [Mass/Vol] 1.78 mg/dL High 0.70-1.20 [facility] Serum globulin measurementOr dered By: Josy Elias on 12-07-2024 Globulin (S) [Mass/Vol] 2.9 g/dL 2.2-4.2 [facility] Serum glucose measurement (m ass/volume)Ordered By: Josy Elias on 12-07-2024 Glucose [Mass/Vol] 185 mg/dL High 70-99 [facility] Serum or plasma alanine thomas otransferase (ALT) measurementOrdered By: Josy Elias on 12-07-2024 ALT [Catalytic activity/Vol] 24 U/L <47 [facility] Serum or plasma albumin roosevelt urement (mass/volume)Ordered By: Josy Elias on 12-07-2024 Albumin [Mass/Vol] 2.6 g/dL Low 3.5-5.0 [facility] Serum or plasma albumin/glob ulin mass ratioOrdered By: Josy Elias on 12-07-2024 Albumin/Globulin [Mass ratio] 0.9 {ratio} 0.9-2.4 [facility] [facility] Serum or plasma alkaline kendrick sphatase measurementOrdered By: Josy Elias on 12-07-2024 ALP [Catalytic activity/Vol] 241 U/L High 40-129 [facility] Serum or plasma calcium roosevelt urement (mass/volume)Ordered By: Josy Elias on 12-07-2024 Calcium [Mass/Vol] 8.2 mg/dL 7.6-11.0 [facility] Serum or plasma urea nitroge n measurement (mass/volume)Ordered By: Josy Elias on 12-07-2024 Urea nitrogen [Mass/Vol] 18 mg/dL 4-19 [facility] Sodium levelOrdered By: Terrance Elias on 12-07-2024 Sodium [Moles/Vol] 136 mmol/L 133-145 [facility] Total proteinOrdered By: Chinedu Elias on 12-07-2024 Protein [Mass/Vol] 5.5 g/dL Low 5.9-8.4 [facility] White blood cell (WBC) count Ordered By: Josy Elias on 12-07-2024 WBC (Bld) [#/Vol] 9.3 10*3/uL 4.4-11.0 [facility] Absolute lymphocyte countOrd ered By: Hill Acuña on 12-02-2024 Lymphocytes Auto (Unsp spec) [#/Vol] 0.92 10*3/uL 0.83-4.51 [facility] Anion gap in Serum or Plasma Ordered By: Hill Acuña on 12-02-2024 Anion gap [Moles/Vol] 7 mmol/L 5-15 [facility] Automated lymphocyte count a s percentage of total leukocytesOrdered By: Hill Acuña on 12-02-2024 Lymphocytes/100 WBC Auto (Unsp spec) 15.7 % Low 19-41 [facility] BUN/creatinine ratioOrdered By: Hill Acuña on 12-02-2024 Urea nitrogen/Creatinine [Mass ratio] 8.1 mg/mg Low 10-20 [facility] Basophil percentageOrdered B y: Hill Acuña on 12-02-2024 Basophils/100 WBC (Bld) 0.5 % 0-1 [facility] Bilirubin, totalOrdered By: Hill Acuña on 12-02-2024 Bilirubin [Mass/Vol] 1.07 mg/dL 0.00-1.30 [facility] Carbon dioxide, total [Moles /volume] in Central venous bloodOrdered By: Hill Acuña on 12-02-2024 CO2 [Moles/Vol] 21.0 mmol/L 21.0-32.0 [facility] Chloride assayOrdered By: Kvng Acuña on 12-02-2024 Chloride [Moles/Vol] 104 mmol/L 98-108 [facility] Eosinophil percentageOrdered By: Hill Acuña on 12-02-2024 Eosinophils/100 WBC (Bld) 3.6 % 0-5 [facility] Erythrocyte distribution wid th ratioOrdered By: Hill Acuña on 12-02-2024 Erythrocyte distribution width (RBC) [Ratio] 16.2 % High 11.6-14.6 [facility] Erythrocyte distribution wid th standard deviationOrdered By: Hill Acuña on 12-02-2024 Erythrocyte distribution width (RBC) [Ratio] 53.0 fl High 35.1-43.9 [facility] Glomerular filtration rate ( GFR) estimation/1.73 sq m using serum, plasma, or whole bOrdered By: Hill Acuña on 12-02-2024 GFR/1.73 sq M.predicted among non-blacks MDRD (S/P/Bld) [Vol rate/Area] 98 mL/min/{1.73_m2} >60 [facility] Glucose measurement at bedsi deOrdered By: Hill Acuña on 12-02-2024 Glucose [Mass/Vol] 259 mg/dL High 74-106 [facility] Hematocrit Auto (Bld) [Volum e fraction]Ordered By: Hill Acuña on 12-02-2024 Hematocrit (Bld) [Volume fraction] 21.9 % Low 40-54 [facility] Hemoglobin measurementOrdere d By: Hill Acuña on 12-02-2024 Hemoglobin (Bld) [Mass/Vol] 7.2 g/dL Low 13.0-16.5 [facility] Immature granulocytes/100 WB C Auto (Bld)Ordered By: Hill Acuña on 12-02-2024 Immature granulocytes/100 WBC (Bld) 0.500 % 0.0-0.9 [facility] MCV (mean corpuscular volume ) determinationOrdered By: Hill Acuña on 12-02-2024 MCV (RBC) [Entitic vol] 89.8 fL 80-94 [facility] Magnesium measurement (mass/ volume)Ordered By: Hill Acuña on 12-02-2024 Magnesium (Unsp spec) [Mass/Vol] 1.6 mg/dL 1.5-2.2 [facility] Mean corpuscular hemoglobin (MCH) determinationOrdered By: Hill Acuña on 12-02-2024 MCH (RBC) [Entitic mass] 29.5 pg 27.0-32.0 [facility] Monocyte percentageOrdered B y: Hill Acuña on 12-02-2024 Monocytes/100 WBC (Bld) 13.3 % High 0-10 [facility] Neutrophil percentageOrdered By: Hill Acuña on 12-02-2024 Neutrophils/100 WBC (Bld) 66.4 % 47-70 [facility] No Panel InformationOrdered By: Hill Acuña on 12-02-2024 58 U/L High <38 [facility] Platelet countOrdered By: Kvng Acuña on 12-02-2024 Platelets (Bld) [#/Vol] 100 10*3/uL Low 150-450 [facility] Potassium measurement (mass/ volume)Ordered By: Hill Acuña on 12-02-2024 Potassium (Unsp spec) [Mass/Vol] 3.8 mmol/L 3.3-5.1 [facility] RBC Auto (Bld) [#/Vol]Ordere d By: Hill Acuña on 12-02-2024 RBC (Bld) [#/Vol] 2.44 10*6/uL Low 4.6-6.2 [facility] Serum creatinine measurement (mass/volume)Ordered By: Hill Acuña on 12-02-2024 Creatinine [Mass/Vol] 0.90 mg/dL 0.70-1.20 [facility] Serum globulin measurementOr dered By: Hill Acuña on 12-02-2024 Globulin (S) [Mass/Vol] 2.6 g/dL 2.2-4.2 [facility] Serum glucose measurement (m ass/volume)Ordered By: Hill Acuña on 12-02-2024 Glucose [Mass/Vol] 221 mg/dL High 70-99 [facility] Serum or plasma alanine thomas otransferase (ALT) measurementOrdered By: Hill Acuña on 12-02-2024 ALT [Catalytic activity/Vol] 33 U/L <47 [facility] Serum or plasma albumin roosevelt urement (mass/volume)Ordered By: Hill Acuña on 12-02-2024 Albumin [Mass/Vol] 2.5 g/dL Low 3.5-5.0 [facility] Serum or plasma albumin/glob ulin mass ratioOrdered By: Hill Acuña on 12-02-2024 Albumin/Globulin [Mass ratio] 1.0 {ratio} 0.9-2.4 [facility] Serum or plasma alkaline kendrick sphatase measurementOrdered By: Hill Acuña on 12-02-2024 ALP [Catalytic activity/Vol] 219 U/L High 40-129 [facility] Serum or plasma calcium roosevelt urement (mass/volume)Ordered By: Hill Acuña on 12-02-2024 Calcium [Mass/Vol] 7.8 mg/dL 7.6-11.0 [facility] Serum or plasma urea nitroge n measurement (mass/volume)Ordered By: Hill Acuña on 12-02-2024 Urea nitrogen [Mass/Vol] 7 mg/dL 4-19 [facility] Sodium levelOrdered By: Paulino Acuña on 12-02-2024 Sodium [Moles/Vol] 132 mmol/L Low 133-145 [facility] Total proteinOrdered By: Hugo Acuña on 12-02-2024 Protein [Mass/Vol] 5.1 g/dL Low 5.9-8.4 [facility] Trough vancomycin levelOrder ed By: Maria Guadalupe Shore on 12-02-2024 Vancomycin trough [Mass/Vol] 19.6 ug/mL High 5.0-15.0 [facility] White blood cell (WBC) count Ordered By: Hill Acuña on 12-02-2024 WBC (Bld) [#/Vol] 5.9 10*3/uL 4.4-11.0 [facility] Platelet estimateOrdered By: Hill Acuña on 11-30-2024 Platelets LM Ql (Bld) MOD DEC ADEQ [facility] Serum or plasma vancomycin m easurement (mass/volume)Ordered By: Kathie Powers on 11-30-2024 Vancomycin [Mass/Vol] 17.7 ug/mL High 0.0-15.0 [facility] Prothrombin timeOrdered By: Kathie Powers on 11-29-2024 PT Coag (PPP) [Time] 21.1 s High 11.7-14.9 [facility] Bilirubin Test strip Ql (U)O rdered By: Rachel Joiner on 11-28-2024 Bilirubin Ql (U) Negative Negative [facility] Bilirubin directOrdered By: Rachel Joiner on 11-28-2024 Bilirubin.direct [Mass/Vol] 0.72 mg/dL High 0.00-0.30 [facility] Ketones Test strip Ql (U)Ord ered By: Rachel Joiner on 11-28-2024 Ketones Ql (U) 5 mg/dl High Negative [facility] Mucus LM Ql (Urine sed)Order ed By: Rachel Joiner on 11-28-2024 Mucus Ql (Urine sed) 0 SEEN /hpf [facility] Nitrite Test strip Ql (U)Ord ered By: Rachel Joiner on 11-28-2024 Nitrite Ql (U) Positive High Negative [facility] Protein Test strip Ql (U)Ord ered By: Rachel Joiner on 11-28-2024 Protein Ql (U) 100 mg/dl High Negative [facility] Squamous epithelial cells de tection in urine sediment by light microscopyOrdered By: Rachel Joiner on 11-28-2024 Epithelial cells.squamous LM Ql (Urine sed) 0-5 SEEN /hpf 0-5 [facility] Urine clarityOrdered By: Shi Joiner on 11-28-2024 Clarity (U) Cloudy Clear [facility] Urine color determinationOrd ered By: Rachel Joiner on 11-28-2024 Color (U) Lexis Yellow [facility] Urine cultureOrdered By: Tyree Powers on 11-28-2024 Bacteria identified Cx Nom (U) ESBL Klebsiella pneumoniae pne Abnormal [facility] Urine glucose detectionOrder ed By: Rachel Joiner on 11-28-2024 Glucose Ql (U) Normal mg/dl Normal [facility] Urine leukocyte esterase det ection by dipstickOrdered By: Rachel Joiner on 11-28-2024 Leukocyte esterase Test strip Ql (U) 500 /ul High Negative [facility] Urine pHOrdered By: Rachel silva on 11-28-2024 pH (U) 6.5 [pH] 5.0 - 8.0 [facility] Urine sediment bacteria coun t by microscopy (number/high power field)Ordered By: Rachel Joiner on 11-28-2024 Bacteria LM.HPF (Urine sed) [#/Area] 1 /[HPF] None Seen [facility] Urine specific gravity measu rementOrdered By: Rachel Joiner on 11-28-2024 Specific gravity (U) [Rel density] 1.010 1.002-1.030 [facility] Urine urobilinogen measureme ntOrdered By: Rachel Joiner on 11-28-2024 Urobilinogen Ql (U) Normal mg/dl Normal [facility] Venous blood ammonia measure mentOrdered By: Rachel Joiner on 11-28-2024 Ammonia (P) [Moles/Vol] 68.4 umol/L High 16-60 [facility] White blood cell countOrdere d By: Rachel Joiner on 11-28-2024 White blood cell count 50-100 SEEN /hpf 0-5 [facility] Absolute lymphocyte countOrd ered By: Anurag Irene on 11-25-2024 Lymphocytes Auto (Unsp spec) [#/Vol] 0.92 10*3/uL 0.83-4.51 [facility] Anion gap in Serum or Plasma Ordered By: Anurag Irene on 11-25-2024 Anion gap [Moles/Vol] 8 mmol/L 5-15 [facility] Automated lymphocyte count a s percentage of total leukocytesOrdered By: Anruag Irene on 11-25-2024 Lymphocytes/100 WBC Auto (Unsp spec) 16.7 % Low 19-41 [facility] BUN/creatinine ratioOrdered By: Anurag Irene on 11-25-2024 Urea nitrogen/Creatinine [Mass ratio] 9.2 mg/mg Low 10-20 [facility] Basophil percentageOrdered B y: Anurag Irene on 11-25-2024 Basophils/100 WBC (Bld) 0.4 % 0-1 [facility] Bilirubin, totalOrdered By: Anurag Irene on 11-25-2024 Bilirubin [Mass/Vol] 1.07 mg/dL 0.00-1.30 [facility] Carbon dioxide, total [Moles /volume] in Central venous bloodOrdered By: Anurag Irene on 11-25-2024 CO2 [Moles/Vol] 19.3 mmol/L Low 21.0-32.0 [facility] Chloride assayOrdered By: Francois Irene on 11-25-2024 Chloride [Moles/Vol] 108 mmol/L 98-108 [facility] Eosinophil percentageOrdered By: Anurag Irene on 11-25-2024 Eosinophils/100 WBC (Bld) 4.2 % 0-5 [facility] Erythrocyte distribution wid th ratioOrdered By: Anurag Irene on 11-25-2024 Erythrocyte distribution width (RBC) [Ratio] 15.8 % High 11.6-14.6 [facility] Erythrocyte distribution wid th standard deviationOrdered By: Anurag Irene on 11-25-2024 Erythrocyte distribution width (RBC) [Ratio] 52.9 fl High 35.1-43.9 [facility] Glomerular filtration rate ( GFR) estimation/1.73 sq m using serum, plasma, or whole bOrdered By: Anurag Irene on 11-25-2024 GFR/1.73 sq M.predicted among non-blacks MDRD (S/P/Bld) [Vol rate/Area] 100 mL/min/{1.73_m2} >60 [facility] Glucose measurement at bedsi deOrdered By: Anurag Irene on 11-25-2024 Glucose [Mass/Vol] 222 mg/dL High 74-[facility] Hematocrit Auto (Bld) [Volum e fraction]Ordered By: Anurag Irene on 11-25-2024 Hematocrit (Bld) [Volume fraction] 21.5 % Low 40-54 [facility] Hemoglobin measurementOrdere d By: Anurag Irene on 11-25-2024 Hemoglobin (Bld) [Mass/Vol] 7.0 g/dL Low 13.0-16.5 [facility] Immature granulocytes/100 WB C Auto (Bld)Ordered By: Anurag Irene on 11-25-2024 Immature granulocytes/100 WBC (Bld) 0.400 % 0.0-0.9 [facility] MCV (mean corpuscular volume ) determinationOrdered By: Anurag Irene on 11-25-2024 MCV (RBC) [Entitic vol] 93.1 fL 80-94 [facility] Mean corpuscular hemoglobin (MCH) determinationOrdered By: Anurag Irene on 11-25-2024 MCH (RBC) [Entitic mass] 30.3 pg 27.0-32.0 [facility] Monocyte percentageOrdered B y: Anurag Irene on 11-25-2024 Monocytes/100 WBC (Bld) 12.7 % High 0-10 [facility] Neutrophil percentageOrdered By: Anurag Irene on 11-25-2024 Neutrophils/100 WBC (Bld) 65.6 % 47-70 [facility] No Panel InformationOrdered By: Anurag Irene on 11-25-2024 60 U/L High <38 [facility] Platelet countOrdered By: Francois Irene on 11-25-2024 Platelets (Bld) [#/Vol] 82 10*3/uL Low 150-450 [facility] Potassium measurement (mass/ volume)Ordered By: Anurag Irene on 11-25-2024 Potassium (Unsp spec) [Mass/Vol] 4.2 mmol/L 3.3-5.1 [facility] RBC Auto (Bld) [#/Vol]Ordere d By: Anurag Irene on 11-25-2024 RBC (Bld) [#/Vol] 2.31 10*6/uL Low 4.6-6.2 [facility] [place] Serum creatinine measurement (mass/volume)Ordered By: Anurag Irene on 11-25-2024 Creatinine [Mass/Vol] 0.86 mg/dL 0.70-1.20 [facility] Serum globulin measurementOr dered By: Anurag Irene on 11-25-2024 Globulin (S) [Mass/Vol] 2.2 g/dL 2.2-4.2 [facility] Serum glucose measurement (m ass/volume)Ordered By: Anurag Irene on 11-25-2024 Glucose [Mass/Vol] 179 mg/dL High 70-99 [facility] Serum or plasma alanine thomas otransferase (ALT) measurementOrdered By: Anurag Irene on 11-25-2024 ALT [Catalytic activity/Vol] 41 U/L <47 [facility] Serum or plasma albumin roosevelt urement (mass/volume)Ordered By: Anurag Irene on 11-25-2024 Albumin [Mass/Vol] 2.7 g/dL Low 3.5-5.0 [facility] Serum or plasma albumin/glob ulin mass ratioOrdered By: Anurag Irene on 11-25-2024 Albumin/Globulin [Mass ratio] 1.2 {ratio} 0.9-2.4 [facility] Serum or plasma alkaline kendrick sphatase measurementOrdered By: Anurag Irene on 11-25-2024 ALP [Catalytic activity/Vol] 168 U/L High 40-129 [facility] Serum or plasma calcium roosevelt urement (mass/volume)Ordered By: Anurag Irene on 11-25-2024 Calcium [Mass/Vol] 8.3 mg/dL 7.6-11.0 [facility] Serum or plasma urea nitroge n measurement (mass/volume)Ordered By: Anurag Irene on 11-25-2024 Urea nitrogen [Mass/Vol] 8 mg/dL 4-19 [facility] Sodium levelOrdered By: Marni Irene on 11-25-2024 Sodium [Moles/Vol] 135 mmol/L 133-145 [facility] Total proteinOrdered By: [place] Irene on 11-25-2024 Protein [Mass/Vol] 4.9 g/dL Low 5.9-8.4 [facility] White blood cell (WBC) count Ordered By: Anurag Irene on 11-25-2024 WBC (Bld) [#/Vol] 5.5 10*3/uL 4.4-11.0 [facility] Blood manual differential co mment interpretation (narrative result)Ordered By: Anurag Irene on 11-24-2024 Manual differential comment Marco Antonio (Bld) [Interp] SCANNED [facility] Platelet estimateOrdered By: Anurag Irene on 11-24-2024 Platelets LM Ql (Bld) MOD DEC ADEQ [facility] Prothrombin timeOrdered By: Anurag Irene on 11-24-2024 PT Coag (PPP) [Time] 22.6 s High 11.7-14.9 [facility] Bilirubin directOrdered By: Anurag Irene on 11-22-2024 Bilirubin.direct [Mass/Vol] 0.73 mg/dL High 0.00-0.30 [facility] ALP [Catalytic activity/Vol] Ordered By: Herberth Carlson on 11-21-2024 Serum or plasma alkaline phosphatase measurement 245 U/L High 40-129 [facility] ALT [Catalytic activity/Vol] Ordered By: Herberth Carlson on 11-21-2024 Serum or plasma alanine aminotransferase (ALT) measurement 61 U/L High <47 [facility] Absolute neutrophil countOrd ered By: Herberth Carlson on 11-21-2024 Absolute neutrophil count 6.5 X10^3/uL 2.0-7.7 [facility] Albumin [Mass/Vol]Ordered By : Herberth Carlson on 11-21-2024 Serum or plasma albumin measurement (mass/volume) 2.5 g/dL Low 3.5-5.0 [facility] Albumin/Globulin [Mass ratio ]Ordered By: Herberth Carlson on 11-21-2024 Serum or plasma albumin/globulin mass ratio 0.9 RATIO 0.9-2.4 [facility] Anion gap [Moles/Vol]Ordered By: Herberth Carlson on 11-21-2024 Anion gap in Serum or Plasma 11 5-15 [facility] BUN/creatinine ratioOrdered By: Herberth Carlson on 11-21-2024 BUN/creatinine ratio 19.1 RATIO 10-20 [facility] Bacteria LM.HPF (Urine sed) [#/Area]Ordered By: Herberth Carlson on 11-21-2024 Urine sediment bacteria count by microscopy (number/high power field) RARE /hpf None Seen [facility] Basophil percentageOrdered B y: Herberth Carlson on 11-21-2024 Basophil percentage 0.2 % 0-1 [facility] [place] Bilirubin Test strip Ql (U)O rdered By: Herberth Carlson on 11-21-2024 Bilirubin Ql (U) Negative Negative [facility] Bilirubin, totalOrdered By: Herberth Carlson on 11-21-2024 Bilirubin, total 1.33 mg/dL High 0.00-1.30 [facility] Calcium [Mass/Vol]Ordered By : Herberth Carlson on 11-21-2024 Serum or plasma calcium measurement (mass/volume) 8.7 mg/dL 7.6-11.0 [facility] Carbon dioxide, total [Moles /volume] in Central venous bloodOrdered By: Herberth Carlson on 11-21-2024 Carbon dioxide, total [Moles/volume] in Central venous blood 17.5 mmol/L Low 21.0-32.0 [facility] Chloride assayOrdered By: Kaylyn Carlson on 11-21-2024 Chloride assay 103 mmol/L 98-108 [facility] Clarity (U)Ordered By: Ashish Carlson on 11-21-2024 Urine clarity Sl Cldy Clear [facility] Color (U)Ordered By: Herberth Carlson on 11-21-2024 Urine color determination Yellow Yellow [facility] Creatinine [Mass/Vol]Ordered By: Herberth Carlson on 11-21-2024 Serum creatinine measurement (mass/volume) 1.49 mg/dL High 0.70-1.20 [facility] Eosinophil percentageOrdered By: Herberth Carlson on 11-21-2024 Eosinophil percentage 7.2 % High 0-5 [facility] Erythrocyte distribution wid th (RBC) [Ratio]Ordered By: Herberth Carlson on 11-21-2024 Erythrocyte distribution width ratio 16.8 % High 11.6-14.6 [facility] Erythrocyte distribution width standard deviation 57.1 fl High 35.1-43.9 [facility] Estimation of creatinine carolina aranceOrdered By: Herberth Carlson on 11-21-2024 Estimation of creatinine clearance 64.65 ml/min 50-250 [facility] GFR/1.73 sq M.predicted niki g non-blacks MDRD (S/P/Bld) [Vol rate/Area]Ordered By: Herberth Carlson on 11-21-2024 Glomerular filtration rate (GFR) estimation/1.73 sq m using serum, plasma, or whole b 54 Low >60 [facility] Glucose [Mass/Vol]Ordered By : Herberth Carlson on 11-21-2024 Serum glucose measurement (mass/volume) 188 mg/dL High 70-99 [facility] Hematocrit Auto (Bld) [Volum e fraction]Ordered By: Herberth Carlson on 11-21-2024 Automated blood hematocrit (percentage) 24.6 % Low 40-54 [facility] Hemoglobin measurementOrdere d By: Herberth Carlson on 11-21-2024 Hemoglobin measurement 8.3 g/dL Low 13.0-16.5 [facility] Immature granulocytes/100 WB C Auto (Bld)Ordered By: Herberth Carlson on 11-21-2024 Automated immature granulocyte percentage 0.800 % 0.0-0.9 [facility] International normalized rat io (INR) calculationOrdered By: Herberth Carlson on 11-21-2024 International normalized ratio (INR) calculation 2.6 [facility] Ketones Test strip Ql (U)Ord ered By: Herberth Carlson on 11-21-2024 Ketones Ql (U) Negative Negative [facility] Lactic acid measurementOrder ed By: Herberth Carlson on 11-21-2024 Lactic acid measurement 2.7 mmol/L High 0.0-2.0 [facility] Leukocyte esterase Test stri p Ql (U)Ordered By: Herberth Carlson on 11-21-2024 Urine leukocyte esterase detection by dipstick 500 /ul High Negative [facility] Lymphocytes Auto (Unsp spec) [#/Vol]Ordered By: Herberth Carlson on 11-21-2024 Absolute lymphocyte count 1.33 X10^3/uL 0.83-4.51 [facility] Lymphocytes/100 WBC Auto (Un sp spec)Ordered By: Herberth Carlson on 11-21-2024 Automated lymphocyte count as percentage of total leukocytes 13.9 % Low 19-41 [facility] MCV (RBC) [Entitic vol]Order ed By: Herberth Carlson on 11-21-2024 MCV (mean corpuscular volume) determination 93.2 fL 80-94 [facility] Mean corpuscular hemoglobin (MCH) determinationOrdered By: Herberth Carlson on 11-21-2024 Mean corpuscular hemoglobin (MCH) determination 31.4 pg 27.0-32.0 [facility] Mean corpuscular hemoglobin concentration (MCHC) determinationOrdered By: Herberth Carlson on 11-21-2024 Mean corpuscular hemoglobin concentration (MCHC) determination 33.7 g/dL 32-36 [facility] Mean platelet volume determi nationOrdered By: Herberth Carlson on 11-21-2024 Mean platelet volume determination 11.6 fl 6.2-12.0 [facility] Monocyte percentageOrdered B y: Herberth Carlson on 11-21-2024 Monocyte percentage 9.2 % 0-10 [facility] [place] Mucus LM Ql (Urine sed)Order ed By: Herberth Carlson on 11-21-2024 Mucus Ql (Urine sed) 0 SEEN /hpf [facility] Neutrophil percentageOrdered By: Herberth Carlson on 11-21-2024 Neutrophil percentage 68.7 % 47-70 [facility] Nitrite Test strip Ql (U)Ord ered By: Herberth Carlson on 11-21-2024 Nitrite Ql (U) Negative Negative [facility] No Panel InformationOrdered By: Herberth Carlson on 11-21-2024 112 U/L High <38 [facility] Nucleated red blood cell per centageOrdered By: Herberth Carlson on 11-21-2024 Nucleated red blood cell percentage 0 % 0-5 [facility] Platelet countOrdered By: Kaylyn Carlson on 11-21-2024 Platelet count 167 K/mm3 150-450 [facility] Potassium (Unsp spec) [Mass/ Vol]Ordered By: Herberth Carlson on 11-21-2024 Potassium measurement (mass/volume) 5.0 mmol/L 3.3-5.1 [facility] Protein Test strip Ql (U)Ord ered By: Herberth Carlson on 11-21-2024 Protein Ql (U) 500 mg/dl High Negative [facility] Urine protein assay by test strip, semi-quantitative 500 mg/dl High Negative [facility] Prothrombin timeOrdered By: Herberth Carlson on 11-21-2024 Prothrombin time 28.2 SECONDS High 11.7-14.9 [facility] RBC Auto (Bld) [#/Vol]Ordere d By: Herberth Carlson on 11-21-2024 Automated blood erythrocyte count 2.64 M/mm3 Low 4.6-6.2 [facility] Serum globulin measurementOr dered By: Herberth Carlson on 11-21-2024 Serum globulin measurement 2.7 g/dL 2.2-4.2 [facility] Sodium levelOrdered By: Norman Carlson on 11-21-2024 Sodium level 132 mmol/L Low 133-145 [facility] Specific gravity (U) [Rel de nsity]Ordered By: Herberth Carlson on 11-21-2024 Urine specific gravity measurement 1.015 1.002-1.030 [facility] Squamous epithelial cells de tection in urine sediment by light microscopyOrdered By: Herberth Carlson 11-21-2024 Epithelial cells.squamous LM Ql (Urine sed) 0 SEEN /hpf 0-5 [facility] Squamous epithelial cells detection in urine sediment by light microscopy 0 SEEN /hpf [facility] Total proteinOrdered By: Digna Carlson on 11-21-2024 Total protein 5.2 g/dL Low 5.9-8.4 [facility] Urea nitrogen [Mass/Vol]Orde red By: Herberth Carlson on 11-21-2024 Serum or plasma urea nitrogen measurement (mass/volume) 28 mg/dL High 4-19 [facility] Urine blood detectionOrdered By: Herberth Carlson 11-21-2024 Urine blood detection 250 /ul High Negative [facility] Urine clarityOrdered By: Digna Carlson on 11-21-2024 Clarity (U) Sl Cldy Clear [facility] Urine color determinationOrd ered By: Herberth Carlson on 11-21-2024 Color (U) Yellow Yellow [facility] Urine cultureOrdered By: Digna Carlson on 11-21-2024 Bacteria 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 [facility] Bacteria identified Cx Nom (U) GPC Poss Enterococcus sp Abnormal [facility] Bacteria identified Cx Nom (U) Positive Abnormal [facility] Urine glucose detectionOrder ed By: Herberth Carlson on 11-21-2024 Glucose Ql (U) Normal mg/dl Normal [facility] Urine glucose detection Normal mg/dl Normal [facility] Urine leukocyte esterase det ection by dipstickOrdered By: Herberth Carlson on 11-21-2024 Leukocyte esterase Test strip Ql (U) 500 /ul High Negative [facility] Urine pHOrdered By: Herberth Carlson on 11-21-2024 pH (U) 6.0 [pH] 5.0 - 8.0 [facility] Urine sediment bacteria coun t by microscopy (number/high power field)Ordered By: Herberth Carlson on 11-21-2024 Bacteria LM.HPF (Urine sed) [#/Area] RARE /hpf None Seen [facility] Urine specific gravity measu rementOrdered By: Herberth Carlson on 11-21-2024 Specific gravity (U) [Rel density] 1.015 1.002-1.030 [facility] Urine total bilirubin detect ion by test stripOrdered By: Herberth Carlson on 11-21-2024 Urine total bilirubin detection by test strip Negative Negative [facility] Urine urobilinogen measureme ntOrdered By: Herberth Carlson on 11-21-2024 Urobilinogen Ql (U) Normal mg/dl Normal [facility] Venous blood ammonia measure mentOrdered By: Herberth Carlson on 11-21-2024 Ammonia (P) [Moles/Vol] 17.9 umol/L 16- [facility] Venous blood ammonia measurement 17.9 umol/L 16-60 [facility] White blood cell (WBC) count Ordered By: Herberth Carlson on 11-21-2024 White blood cell (WBC) count 9.5 K/mm3 4.4-11.0 [facility] White blood cell countOrdere d By: Herberth Carlson on 11-21-2024 White blood cell count >100 SEEN /hpf 0-5 [facility] White blood cell count >100 SEEN /hpf 0-5 [facility] pH (U)Ordered By: Herberth henao on 11-21-2024 Urine pH 6.0 5.0 - 8.0 [facility] Bacteria Ur Culton Bacteria identified Cx Nom (U) CULTURE, URINE: Mixed microbiota, including predominantly: ORGANISM ID: 1 >=100,000 CFU/ml Mary glabrata No susceptibility testing done. Normal [facility] Comment on above: Performed By: #### 6 30-4 ####[facility] LABCLIA [id number] [facility] [address] [place] [address] [place] Bacteria identified Cx Nom (U) Normal [facility] Comment on above: Performed By: #### 2 4356-8, 630-4 ####[facility] LABCLIA [id number] [facility]D [facility] [address] [place] [address] [place] Basic metabolic 2000 panelon 11-18-2024 Anion gap [Moles/Vol] 8 mmol/L Normal 8-[address] [facility] Comment on above: Order Comment: Speci men Type: BLOOD SPECIMENOrdering Facility: [facility] Address: [address] [place] [address] Performed By: #### 2 4321-2, 02392-0, 2777-1 ####[facility] LABCLIA [id number] [facility] [address] [address] [place] Calcium [Mass/Vol] 8.3 mg/dL Low 8.5-10.2 [facility] Comment on above: Order Comment: Speci men Type: BLOOD SPECIMENOrdering Facility: [facility] Address: [address] [place] [address] Performed By: #### 2 4321-2, 81181-9, 2777-1 ####[facility] LABCLIA [id number] [facility] [address] [place] [address] [place] Chloride [Moles/Vol] 102 mmol/L Normal 98-107 [facility] Comment on above: Order Comment: Speci men Type: BLOOD SPECIMENOrdering Facility: [facility] Address: [address] [place] [address] Performed By: #### 2 4321-2, 52260-4, 27702-01 ####[facility] LABCLIA [id number] [place] [address] [place] CO2 [Moles/Vol] 19 mmol/L Low 22-30 [facility] Comment on above: Order Comment: Speci men Type: BLOOD SPECIMENOrdering Facility: [facility] Address: [address] [place] [address] Performed By: #### 2 4321-2, 02232-9, 27702-01 ####[facility] LABCLIA [id number] [place] [address] [place] Creatinine [Mass/Vol] 0.95 mg/dL Normal 0.73-1.[address] [facility] Comment on above: Order Comment: Speci men Type: BLOOD SPECIMENOrdering Facility: [facility] Address: [address] [place] [address] Performed By: #### 2 4321-2, 55103-5, 27702-01 ####[facility] LABCLIA [id number] [place] [address] [place] Creatinine and Glomerular filtration rate.predicted panel (S/P/Bld) 93 mL/min/1.73m??? Normal >=60 [facility] Comment on above: Order Comment: Speci men Type: BLOOD SPECIMENOrdering Facility: [facility] Address: [address] [place] [address] Result Comment: Patric mated Glomerular Filtration Rate [...] actual GFR. Performed By: #### 2 4321-2, 57955-3, 2776- ####[facility] LABCLIA [id number] [address] [address] [place] Glucose [Mass/Vol] 248 mg/dL High 74-99 [facility] Comment on above: Order Comment: Speci men Type: BLOOD SPECIMENOrdering Facility: [facility] Address: [address] [place] [address] Result Comment: The [place] [employer] (ADA) provides guidance for cutoff [...] Standards of Medical Care in Diabetes 2016, [place] [employer]. Diabetes Care. 2016.39(Suppl 1). Performed By: #### 2 4321-2, 24852-8, 2776-08 ####[facility] LABCLIA [id number] [address] [address] [place] Potassium [Moles/Vol] 4.4 mmol/L Normal 3.7-5.[address] [facility] Comment on above: Order Comment: Speci men Type: BLOOD SPECIMENOrdering Facility: [facility] Address: [address] [place] [address] Performed By: #### 2 4321-2, 26700-0, 2776-08 ####[facility] LABIA [id number] [place] [address] [place] Sodium [Moles/Vol] 129 mmol/L Low 136-144 [facility] Comment on above: Order Comment: Speci men Type: BLOOD SPECIMENOrdering Facility: [facility] Address: [address] [place] [address] Performed By: #### 2 4321-2, 73816-3, 2777-1 ####[facility] LABCLIA [id number] [place] [address] [place] Urea nitrogen [Mass/Vol] 16 mg/dL Normal 9-24 [facility] Comment on above: Order Comment: Speci men Type: BLOOD SPECIMENOrdering Facility: [facility] Address: [address] [place] [address] Performed By: #### 2 4321-2, 33170-3, 2777-1 ####[facility] LABIA [id number] [place] [address] [place] CASE MANAGEMon 11-18-2024 CASE MANAGEM Normal [facility] CBC W Auto Differential pane l (Bld)on 11-18-2024 Basophils (Bld) [#/Vol] 10*3/uL Normal <0.11 [facility] Comment on above: Order Comment: Speci men Type: BLOOD SPECIMENOrdering Facility: [facility] Address: [address] [place] [address] Performed By: #### 5 7021-8 ####[facility] LABCLIA [id number] [place] [address] [place] Basophils/100 WBC (Bld) 0.0 % Normal [facility] Comment on above: Order Comment: Speci men Type: BLOOD SPECIMENOrdering Facility: [facility] Address: [address] [place] [address] Performed By: #### 5 7021-8 ####[facility] LABCLIA [id number] [place] [address] [place] Differential cell count method Nom (Bld) Auto Normal [facility] Comment on above: Order Comment: Speci men Type: BLOOD SPECIMENOrdering Facility: [facility] Address: [address] [place] [address] Performed By: #### 5 7021-8 ####[facility] LABCLIA [id number] [address], [place] [address] [place] Eosinophils (Bld) [#/Vol] 10*3/uL Normal <0.46 [facility] Comment on above: Order Comment: Speci men Type: BLOOD SPECIMENOrdering Facility: [facility] Address: [address] [place] [address] Performed By: #### 5 7021-8 ####[facility] LABCLIA [id number] [address], [place] [address] [place] Eosinophils/100 WBC (Bld) 0.1 % Normal [facility] Comment on above: Order Comment: Speci men Type: BLOOD SPECIMENOrdering Facility: [facility] Address: [address] [place] [address] Performed By: #### 5 7021-8 ####[facility] LABCLIA [id number] [address], [place] [address] [place] Erythrocyte distribution width (RBC) [Ratio] 16.7 % High 11.5-15.0 [facility] Comment on above: Order Comment: Speci men Type: BLOOD SPECIMENOrdering Facility: [facility] Address: [address] [place] [address] Performed By: #### 5 7021-8 ####[facility] LABIA [id number] [address], [place] [address] [place] Hematocrit (Bld) [Volume fraction] 21.5 % Low 39.0-51.0 [facility] Comment on above: Order Comment: Speci men Type: BLOOD SPECIMENOrdering Facility: [facility] Address: [address] [place] [address] Performed By: #### 5 7021-8 ####[facility] LABCLIA [id number] [address], [facility] [place] Hemoglobin (Bld) [Mass/Vol] 7.2 g/dL Low 13.0-17.0 [facility] Comment on above: Order Comment: Speci men Type: BLOOD SPECIMENOrdering Facility: [facility] Address: [address] [place] [address] Performed By: #### 5 7021-8 ####[facility] LABCLIA [id number] [facility] [address] [place] Immature granulocytes (Bld) [#/Vol] 0.06 10*3/uL Normal <0.10 [facility] Comment on above: Order Comment: Speci men Type: BLOOD SPECIMENOrdering Facility: [facility] Address: [address] [place] [address] Performed By: #### 5 7021-8 ####[facility] LABCLIA [id number] [place] [address] [place] Immature granulocytes/100 WBC (Bld) 0.7 % Normal [facility] Comment on above: Order Comment: Speci men Type: BLOOD SPECIMENOrdering Facility: [facility] Address: [address] [place] [address] Performed By: #### 5 7021-8 ####[facility] LABCLIA [id number] [place] [address] [place] Lymphocytes (Bld) [#/Vol] 0.61 10*3/uL Low 1.00-4.00 [facility] Comment on above: Order Comment: Speci men Type: BLOOD SPECIMENOrdering Facility: [facility] Address: [address] [place] [address] Performed By: #### 5 7021-8 ####[facility] LABCLIA [id number] [place] [address] [place] Lymphocytes/100 WBC (Bld) 7.3 % Normal [facility] Comment on above: Order Comment: Speci men Type: BLOOD SPECIMENOrdering Facility: [facility] Address: [address] [place] [address] Performed By: #### 5 7021-8 ####[facility] LABIA [id number] [place] [address] [place] MCH (RBC) [Entitic mass] 30.9 pg Normal 26.0-34.0 [facility] Comment on above: Order Comment: Speci men Type: BLOOD SPECIMENOrdering Facility: [facility] Address: [address] [place] [address] Performed By: #### 5 7021-8 ####[facility] LABIA [id number] [place] [address] [place] MCHC (RBC) [Mass/Vol] 33.5 g/dL Normal 30.5-36.[address] [facility] Comment on above: Order Comment: Speci men Type: BLOOD SPECIMENOrdering Facility: [facility] Address: [address] [place] [address] Performed By: #### 5 7021-8 ####[facility] [id number] [place] [address] [place] MCV (RBC) [Entitic vol] 92.3 fL Normal 80.0-100.0 [facility] Comment on above: Order Comment: Speci men Type: BLOOD SPECIMENOrdering Facility: [facility] Address: [address] [place] [address] Performed By: #### 5 7021-8 ####[facility] LABIA [id number] [place] [address] [place] Monocytes (Bld) [#/Vol] 0.72 10*3/uL Normal <0.87 [facility] Comment on above: Order Comment: Speci men Type: BLOOD SPECIMENOrdering Facility: [facility] Address: [address] [place] [address] Performed By: #### 5 7021-8 ####[facility]UN[facility] [id number] [place] [address] [id number] [address] [place] Monocytes/100 WBC (Bld) 8.7 % Normal [facility] Comment on above: Order Comment: Speci men Type: BLOOD SPECIMENOrdering Facility: [facility] Address: [address] [place] [address] Performed By: #### 5 7021-8 ####[facility] LABCLIA [id number] [place] [address] [place] Neutrophils (Bld) [#/Vol] 6.92 10*3/uL Normal 1.45-7.50 [facility] Comment on above: Order Comment: Speci men Type: BLOOD SPECIMENOrdering Facility: [facility] Address: [address] [place] [address] Performed By: #### 5 7021-8 ####[facility] LABCLIA [id number] [place] [address] [place] Neutrophils/100 WBC (Bld) 83.2 % Normal [facility] Comment on above: Order Comment: Speci men Type: BLOOD SPECIMENOrdering Facility: [facility] Address: [address] [place] [address] Performed By: #### 5 7021-8 ####[facility] LABCLIA [id number] [place] [address] [place] Nucleated RBC (Bld) [#/Vol] 10*3/uL Normal <0.01 [facility] Comment on above: Order Comment: Speci men Type: BLOOD SPECIMENOrdering Facility: [facility] Address: [address] [place] [address] Performed By: #### 5 7021-8 ####[facility] LABCLIA [id number] [place] [address] [place] Nucleated RBC/100 WBC (Bld) [Ratio] 0.0 /100 WBC Normal [facility] Comment on above: Order Comment: Speci men Type: BLOOD SPECIMENOrdering Facility: [facility] Address: [address] [place] [address] Performed By: #### 5 7021-8 ####[facility] LABIA [id number] [place] [address] [place] Platelet mean volume (Bld) [Entitic vol] 12.1 fL Normal 9.0-12.7 [facility] Comment on above: Order Comment: Speci men Type: BLOOD SPECIMENOrdering Facility: [facility] Address: [address] [place] [address] Performed By: #### 5 7021-8 ####[facility] LABIA [id number] [place] [address] [place] Platelets (Bld) [#/Vol] 76 10*3/uL Low 150-400 [facility] Comment on above: Order Comment: Speci men Type: BLOOD SPECIMENOrdering Facility: [facility] Address: [address] [place] [address] Result Comment: No c lot detected. Performed By: #### 5 7021-8 ####[facility] LABIA [id number] [place] [address] [place] RBC (Bld) [#/Vol] 2.33 10*6/uL Low 4.20-6.00 [facility] Comment on above: Order Comment: Speci men Type: BLOOD SPECIMENOrdering Facility: [facility] Address: [address] [place] [address] Performed By: #### 5 7021-8 ####[facility] LABIA [id number] [place] [address] [place] WBC (Bld) [#/Vol] 8.32 10*3/uL Normal 3.70-11.00 [facility] Comment on above: Order Comment: Speci men Type: BLOOD SPECIMENOrdering Facility: [facility] Address: [address] [place] [address] Performed By: #### 5 7021-8 ####[facility] LABCLIA [id number] [address] [place] [address] [place] CNCOon 11-18-2024 CNCO Letter Text Normal [facility] CNDSon 11-18-2024 CNDS Normal [facility] CNPNon 11-18-2024 CNPN Normal [facility] Fibrinogen PPP-mCncon 2024 Fibrinogen Coag (PPP) [Mass/Vol] 104 mg/dL Low 200-400 [facility] Comment on above: Order Comment: Speci men Type: BLOOD SPECIMENOrdering Facility: [facility] Address: [address] [place] [address] Performed By: #### 3 255-7, 30166-0 ####[facility] LABCLIA [id number] [address], [facility]95 [place] Hepatic function 2000 panelo n 11-18-2024 Albumin [Mass/Vol] 2.6 g/dL Low 3.9-4.9 [facility] Comment on above: Order Comment: Speci men Type: BLOOD SPECIMENOrdering Facility: [facility] Address: [address] [place] [address] Performed By: #### 2 4321-2, 26712-0, 2777-1 ####[facility] LABIA [id number] [place] [address] [place] ALP [Catalytic activity/Vol] 245 U/L High 38-113 [facility] Comment on above: Order Comment: Speci men Type: BLOOD SPECIMENOrdering Facility: [facility] Address: [address] [place] [address] Performed By: #### 2 4321-2, 35659-1, 2777-1 ####[facility] LABCLIA [id number] [address] [place] [address] [place] ALT [Catalytic activity/Vol] 31 U/L Normal 10-54 [facility] Comment on above: Order Comment: Speci men Type: BLOOD SPECIMENOrdering Facility: [facility] Address: [address] [place], [place] [address] Performed By: #### 2 4321-2, 99208-5, 2776-08 ####[facility] LABCLIA [id number] [address] [address] [place] AST [Catalytic activity/Vol] 52 U/L High 14-40 [facility] Comment on above: Order Comment: Speci men Type: BLOOD SPECIMENOrdering Facility: [facility] Address: [address] [place], [place] [address] Performed By: #### 2 4321-2, 37918-4, 2776-08 ####[facility] LABIA [id number] [place] [address] [place] Bilirubin [Mass/Vol] 1.2 mg/dL Normal 0.2-1.3 [facility] Comment on above: Order Comment: Speci men Type: BLOOD SPECIMENOrdering Facility: [facility] Address: [address] [place], [place] [address] Performed By: #### 2 4321-2, 69919-7, 2776-08 ####[facility] LABIA [id number] [place] [address] [place] Bilirubin.conjugated [Mass/Vol] 0.7 mg/dL High <0.3 [facility] Comment on above: Order Comment: Speci men Type: BLOOD SPECIMENOrdering Facility: [facility] Address: [address] [place] [address] Performed By: #### 2 4321-2, 37168-6, 2776-08 ####[facility] LABIA [id number] [address] [address] [place] Protein [Mass/Vol] 5.0 g/dL Low 6.3-8.0 [facility] Comment on above: Order Comment: Speci men Type: BLOOD SPECIMENOrdering Facility: [facility] Address: [address] [place] [address] Performed By: #### 2 4321-2, 41974-3, 2777-1 ####[facility] [id number] [address] [place] NURSING PROGon 11-18-2024 NURSING PROG Normal [facility] PT panel Coag (PPP)on 2024 INR Coag (PPP) [Relative time] 2.0 {INR} High 0.9-1.3 [facility] Comment on above: Order Comment: Speci men Type: BLOOD SPECIMENOrdering Facility: [facility] Address: [address] [place] [address] Result Comment: Sarah min K Antagonist (VKA) Therapeutic Range: INR 2 to 3 (Target INR of 2.5)Note: For patients treated with VKA drugs, such as warfarin, the [place] [employer] 2012 Guideline recommends [...] al. Chest 2012, 141:7S-47SNishimura RA, et al. [facility] 2017, 70: 252-289 Performed By: #### 3 255-7, 74125-6 ####[facility] [id number] [place] [address] [place] PT Coag (PPP) [Time] 20.9 s High 9.7-13.0 [facility] Comment on above: Order Comment: Speci men Type: BLOOD SPECIMENOrdering Facility: [facility] Address: [address] [place] [address] Performed By: #### 3 255-7, 54933-4 ####[facility] LABCLIA [id number] [place] [address] [place] Phosphate SerPl-mCncon 11-18 Phosphate [Mass/Vol] 2.4 mg/dL Low 2.7-4.8 [facility] Comment on above: Order Comment: Speci men Type: BLOOD SPECIMENOrdering Facility: [facility] Address: [address] [place] [address] Performed By: #### 2 4321-2, 03429-8, 2777-1 ####[facility] LABCLIA [id number] [address] TYPE + SCREENon 11-18-2024 ABO O Normal [facility] Comment on above: Order Comment: Speci men Type: BLOOD SPECIMENOrdering Facility: [facility] Address: [address] [place] [address] Performed By: #### T SCR ####[facility] BLOOD BANKCLIA [id number] [place] [address] [place] Rh Nom (Bld) Positive Normal [facility] Comment on above: Order Comment: Speci men Type: BLOOD SPECIMENOrdering Facility: [facility] Address: [address] [place] [address] Performed By: #### T SCR ####[facility] BLOOD BANKCLIA [id number] [place] [address] [place] TYPE AND SCREEN EXPIRATION 11/21/2024 23:59 Normal [facility] Comment on above: Order Comment: Speci men Type: BLOOD SPECIMENOrdering Facility: [facility] Address: [address] [place] [address] Performed By: #### T SCR ####CC [facility] BLOOD BANKCLIA [id number] [place] [address] [place] Urinalysis complete panel (U )on 11-18-2024 BACTERIA UL 1671.0 uL High Negative [facility] Comment on above: Order Comment: Speci men Type: URINE SPECIMENOrdering Facility: [facility] Address: [address] [place] [address] Performed By: #### 2 4356-8, 630-4 ####[facility] LABCLIA [id number] [place] [employer] [facility] [address] [place] [address] [place] Bilirubin Ql (U) 2+ Abnormal Negative [facility] Comment on above: Order Comment: Speci men Type: URINE SPECIMENOrdering Facility: [facility] Address: [address] [place] [address] Result Comment: Sugg est correlation with clinical findings and serum bilirubin if clinically indicated. Performed By: #### 2 4356-8, 630-4 ####[facility] LABCLIA [id number] [facility] [address], [place] [address] [place] CALCIUM OXALATE CRYSTALS (UA) Few Abnormal None Seen [facility] Comment on above: Order Comment: Speci men Type: URINE SPECIMENOrdering Facility: [facility] Address: [address] [place] [address] Performed By: #### 2 4356-8, 630-4 ####[facility] LABCLIA [id number] [facility] [address] [place] [address] [place] Clarity (Unsp spec) Turbid Abnormal Clear [facility] Comment on above: Order Comment: Speci men Type: URINE SPECIMENOrdering Facility: [facility] Address: [address] [place] [address] Performed By: #### 2 4356-8, 630-4 ####[facility] LABCLIA [id number] [facility] [address], [facility]95 [place] Color (U) Red Abnormal Yellow [facility] Comment on above: Order Comment: Speci men Type: URINE SPECIMENOrdering Facility: [facility] Address: [address] [place] [address] Performed By: #### 2 4356-8, 630-4 ####[facility] LABCLIA [id number] [address], [address] Epithelial cells LM.HPF (Urine sed) [#/Area] None Seen Normal [facility] Comment on above: Order Comment: Speci men Type: URINE SPECIMENOrdering Facility: [facility] Address: [address] [place] [address] Performed By: #### 2 4356-8, 630-4 ####[facility] LABCLIA [id number] [address], [address] [place] Glucose Test strip (U) [Mass/Vol] Negative Normal Negative [facility] Comment on above: Order Comment: Speci men Type: URINE SPECIMENOrdering Facility: [facility] Address: [address] [place] [address] Performed By: #### 2 4356-8, 630-4 ####[facility] LABCLIA [id number] [place] [address] [place] Hemoglobin Ql (U) 2+ Abnormal Negative [facility] Comment on above: Order Comment: Speci men Type: URINE SPECIMENOrdering Facility: [facility] Address: [address] [place] [address] Performed By: #### 2 4356-8, 630-4 ####[facility] LABCLIA [id number] [facility] [address], [facility] [place] Hyaline casts (Urine sed) [#/Area] 0 /[LPF] Normal 0 /LPF [facility] Comment on above: Order Comment: Speci men Type: URINE SPECIMENOrdering Facility: [facility] Address: [address] [place] [address] Performed By: #### 2 4356-8, 630-4 ####[facility] LABCLIA [id number] [address], [facility] [place] Ketones Ql (U) Negative Normal Negative [facility] Comment on above: Order Comment: Speci men Type: URINE SPECIMENOrdering Facility: [facility] Address: [address] [place] [address] Performed By: #### 2 4356-8, 630-4 ####[facility] LABCLIA [id number] [facility] [address] [place] [address] [place] Leukocyte esterase Test strip Ql (U) 3+ Abnormal Negative [facility] Comment on above: Order Comment: Speci men Type: URINE SPECIMENOrdering Facility: [facility] Address: [address] [place] [address] Performed By: #### 2 4356-8, 630-4 ####[facility] LABCLIA [id number] [facility] [address], [place] [address] [place] Nitrite Ql (U) Negative Normal Negative [facility] Comment on above: Order Comment: Speci men Type: URINE SPECIMENOrdering Facility: [facility] Address: [address] [place] [address] Result Comment: Resu lt rechecked. Performed By: #### 2 4356-8, 630-4 ####[facility] LABCLIA [id number] [address], [place] [address] [place] pH (U) 5.0 [pH] Normal <8.5 [facility] Comment on above: Order Comment: Speci men Type: URINE SPECIMENOrdering Facility: [facility] Address: [address] [place] [address] Performed By: #### 2 4356-8, 630-4 ####[facility] LABCLIA [id number] [address], [facility] [place] Protein (U) [Mass/Vol] 2+ Abnormal Negative [facility] Comment on above: Order Comment: Speci men Type: URINE SPECIMENOrdering Facility: [facility] Address: [address] [place] [address] Performed By: #### 2 4356-8, 630-4 ####[facility] LABCLIA [id number] [place] [address] [place] RBC LM.HPF (Urine sed) [#/Area] /[HPF] Abnormal 0-2 /HPF [facility] Comment on above: Order Comment: Speci men Type: URINE SPECIMENOrdering Facility: [facility] Address: [address] [place] [address] Performed By: #### 2 4356-8, 630-4 ####[facility] LABIA [id number] [place] [address] [place] Specific gravity (U) [Rel density] 1.021 Normal 1.005-1.030 [facility] Comment on above: Order Comment: Speci men Type: URINE SPECIMENOrdering Facility: [facility] Address: [address] [place] [address] Performed By: #### 2 4356-8, 4 ####[facility] LABIA [id number] [place] [address] [place] Urobilinogen Ql (U) 0.2 EU/dL Normal 0.2-1.0 EU/dL [facility] Comment on above: Order Comment: Speci men Type: URINE SPECIMENOrdering Facility: [facility] Address: [address] [place] [address] Performed By: #### 2 4356-8, 4 ####[facility] LABIA [id number] [place] [address] [place] WBC LM.HPF (Urine sed) [#/Area] /[HPF] Abnormal 0-5 /HPF [facility] Comment on above: Order Comment: Speci men Type: URINE SPECIMENOrdering Facility: [facility] Address: [address] [place] [address] Performed By: #### 2 4356-8, 630-4 ####[facility] LABIA [id number] [address] [address] [place] Yeast.budding LM.HPF (Urine sed) [#/Area] Present Abnormal None Seen [facility] Comment on above: Order Comment: Speci men Type: URINE SPECIMENOrdering Facility: [facility] Address: [address] [place] [address] Performed By: #### 2 4356-8, 630-4 ####[facility] LABIA [id number] [address] [address] [place] Basic metabolic 2000 panelon 11-17-2024 Anion gap [Moles/Vol] 10 mmol/L Normal 8-[address] [facility] Comment on above: Order Comment: Speci men Type: BLOOD SPECIMENOrdering Facility: [facility] Address: [address] [place] [address] Performed By: #### 2 4321-2, 98711-4, 2777-1 ####[facility] LABIA [id number] [place] [address] [place] Calcium [Mass/Vol] 8.9 mg/dL Normal 8.5-10.2 [facility] Comment on above: Order Comment: Speci men Type: BLOOD SPECIMENOrdering Facility: [facility] Address: [address] [place] [address] Performed By: #### 2 4321-2, 11429-9, 2777-1 ####[facility] LABIA [id number] [place] [address] [place] Chloride [Moles/Vol] 105 mmol/L Normal 98-107 [facility] Comment on above: Order Comment: Speci men Type: BLOOD SPECIMENOrdering Facility: [facility] Address: [address] [place] [address] Performed By: #### 2 4321-2, 54287-1, 2777-1 ####[facility] LABCLIA [id number] [address] [address] [place] CO2 [Moles/Vol] 17 mmol/L Low 22-30 [facility] Comment on above: Order Comment: Speci men Type: BLOOD SPECIMENOrdering Facility: [facility] Address: [address] [place] [address] Performed By: #### 2 4321-2, 85791-4, 277- ####[facility] LABCLIA [id number] [place] [address] [place] Creatinine [Mass/Vol] 0.77 mg/dL Normal 0.73-1.[address] [facility] Comment on above: Order Comment: Speci men Type: BLOOD SPECIMENOrdering Facility: [facility] Address: [address] [place] [address] Performed By: #### 2 4321-2, 20157-6, 2776-08 ####[facility] LABIA [id number] [place] [address] [place] Creatinine and Glomerular filtration rate.predicted panel (S/P/Bld) 104 mL/min/1.73m??? Normal >=60 [facility] Comment on above: Order Comment: Ezekiel ramirez Type: BLOOD SPECIMENOrdering Facility: [facility] Address: [address] [place] [address] Result Comment: Patric mated Glomerular Filtration Rate [...] actual GFR. Performed By: #### 2 4321-2, 38245-6, 2776-08 ####[facility] LABCLIA [id number] [address] [address] [place] Glucose [Mass/Vol] 291 mg/dL High 74-99 [facility] Comment on above: Order Comment: Speci men Type: BLOOD SPECIMENOrdering Facility: [facility] Address: [address] [place], [place] [address] Result Comment: The [place] Diabetes Association (ADA) provides guidance for cutoff [...] Standards of Medical Care in Diabetes 2016, [place] [employer]. Diabetes Care. 2016.39(Suppl 1). Performed By: #### 2 4321-2, 98553-7, 2776- ####[facility] LABCLIA [id number] [place] [address] [place] Potassium [Moles/Vol] 4.5 mmol/L Normal 3.7-5.[address] [facility] Comment on above: Order Comment: Ezekiel ramirez Type: BLOOD SPECIMENOrdering Facility: [facility] Address: [address] [place] [address] Performed By: #### 2 4321-2, 08715-3, 2776-08 ####[facility] LABCLIA [id number] [place] [address] [place] Sodium [Moles/Vol] 132 mmol/L Low 136-144 [facility] Comment on above: Order Comment: Ezekiel ramirez Type: BLOOD SPECIMENOrdering Facility: [facility] Address: [address] [place], [place] [address] Performed By: #### 2 4321-2, 77036-5, 2776-08 ####[facility] LABCLIA [id number] [address] [address] [place] Urea nitrogen [Mass/Vol] 9 mg/dL Normal 9-24 [facility] Comment on above: Order Comment: Speci men Type: BLOOD SPECIMENOrdering Facility: [facility] Address: [address] [place] [address] Performed By: #### 2 4321-2, 74095-3, 2777-1 ####[facility] LABCLIA [id number] [place] [address] [place] CASE MANAGEMon 11-17-2024 CASE MANAGEM Normal [facility] CBC W Auto Differential pane l (Bld)on 11-17-2024 Basophils (Bld) [#/Vol] 10*3/uL Normal <0.11 [facility] Comment on above: Order Comment: Speci men Type: BLOOD SPECIMENOrdering Facility: [facility] Address: [address] [place] [address] Performed By: #### 5 7021-8 ####[facility] LABCLIA [id number] [place] [address] [place] Basophils/100 WBC (Bld) 0.0 % Normal [facility] Comment on above: Order Comment: Speci men Type: BLOOD SPECIMENOrdering Facility: [facility] Address: [address] [place] [address] Performed By: #### 5 7021-8 ####[facility] LABCLIA [id number] [place] [address] [place] Differential cell count method Nom (Bld) Auto Normal [facility] Comment on above: Order Comment: Speci men Type: BLOOD SPECIMENOrdering Facility: [facility] Address: [address] [place] [address] Performed By: #### 5 7021-8 ####[facility] LABCLIA [id number] [place] [id number] [place] Eosinophils (Bld) [#/Vol] 10*3/uL Normal <0.46 [facility] Comment on above: Order Comment: Speci men Type: BLOOD SPECIMENOrdering Facility: [facility] Address: [address] [place] [address] Performed By: #### 5 7021-8 ####[facility] LABIA [id number] [place] [address] [place] Eosinophils/100 WBC (Bld) 0.0 % Normal [facility] Comment on above: Order Comment: Speci men Type: BLOOD SPECIMENOrdering Facility: [facility] Address: [address] [place] [address] Performed By: #### 5 7021-8 ####[facility] LABIA [id number] [place] [address] [place] Erythrocyte distribution width (RBC) [Ratio] 16.9 % High 11.5-15.0 [facility] Comment on above: Order Comment: Speci men Type: BLOOD SPECIMENOrdering Facility: [facility] Address: [address] [place] [address] Performed By: #### 5 7021-8 ####[facility] LABIA [id number] [place] [address] [place] Hematocrit (Bld) [Volume fraction] 22.7 % Low 39.0-51.0 [facility] Comment on above: Order Comment: Speci men Type: BLOOD SPECIMENOrdering Facility: [facility] Address: [address] [place] [address] Performed By: #### 5 7021-8 ####[facility] LABIA [id number] [place] [address] [place] Hemoglobin (Bld) [Mass/Vol] 7.7 g/dL Low 13.0-17.0 [facility] Comment on above: Order Comment: Speci men Type: BLOOD SPECIMENOrdering Facility: [facility] Address: [address] [place] [address] Performed By: #### 5 7021-8 ####[facility] LABCLIA [id number] [address] [place] Immature granulocytes (Bld) [#/Vol] 0.03 10*3/uL Normal <0.10 [facility] Comment on above: Order Comment: Speci men Type: BLOOD SPECIMENOrdering Facility: [facility] Address: [address] [place] [address] Performed By: #### 5 7021-8 ####[facility] LABCLIA [id number] [place] [address] [place] Immature granulocytes/100 WBC (Bld) 0.9 % Normal [facility] Comment on above: Order Comment: Speci men Type: BLOOD SPECIMENOrdering Facility: [facility] Address: [address] [place] [address] Performed By: #### 5 7021-8 ####[facility] LABCLIA [id number] [place] [address] [place] Lymphocytes (Bld) [#/Vol] 0.28 10*3/uL Low 1.00-4.00 [facility] Comment on above: Order Comment: Speci men Type: BLOOD SPECIMENOrdering Facility: [facility] Address: [address] [place] [address] Performed By: #### 5 7021-8 ####[facility] LABCLIA [id number] [place] [address] [place] Lymphocytes/100 WBC (Bld) 8.3 % Normal [facility] Comment on above: Order Comment: Speci men Type: BLOOD SPECIMENOrdering Facility: [facility] Address: [address] [place] [address] Performed By: #### 5 7021-8 ####[facility] LABCLIA [id number] [place] [address] [place] MCH (RBC) [Entitic mass] 31.7 pg Normal 26.0-34.0 [facility] Comment on above: Order Comment: Speci men Type: BLOOD SPECIMENOrdering Facility: [facility] Address: [address] [place] [address] Performed By: #### 5 7021-8 ####[facility] LABCLIA [id number] [place] [address] [place] MCHC (RBC) [Mass/Vol] 33.9 g/dL Normal 30.5-36.[address] [facility] Comment on above: Order Comment: Speci men Type: BLOOD SPECIMENOrdering Facility: [facility] Address: [address] [place] [address] Performed By: #### 5 7021-8 ####[facility] LABCLIA [id number] [place] [address] [place] MCV (RBC) [Entitic vol] 93.4 fL Normal 80.0-100.0 [facility] Comment on above: Order Comment: Speci men Type: BLOOD SPECIMENOrdering Facility: [facility] Address: [address] [place] [address] Performed By: #### 5 7021-8 ####[facility] LABCLIA [id number] [place] [address] [place] Monocytes (Bld) [#/Vol] 0.17 10*3/uL Normal <0.87 [facility] Comment on above: Order Comment: Speci men Type: BLOOD SPECIMENOrdering Facility: [facility] Address: [address] [place] [address] Performed By: #### 5 7021-8 ####[facility] LABCLIA [id number] [place] [address] [place] Monocytes/100 WBC (Bld) 5.0 % Normal [facility] Comment on above: Order Comment: Speci men Type: BLOOD SPECIMENOrdering Facility: [facility] Address: [address] [place] [address] Performed By: #### 5 7021-8 ####[facility] LABCLIA [id number] [place] [address] [place] Neutrophils (Bld) [#/Vol] 2.89 10*3/uL Normal 1.45-7.50 [facility] Comment on above: Order Comment: Speci men Type: BLOOD SPECIMENOrdering Facility: [facility] Address: [address] [place] [address] Performed By: #### 5 7021-8 ####[facility] LABCLIA [id number] [place] [address] [place] Neutrophils/100 WBC (Bld) 85.8 % Normal [facility] Comment on above: Order Comment: Speci men Type: BLOOD SPECIMENOrdering Facility: [facility] Address: [address] [place] [address] Performed By: #### 5 7021-8 ####[facility] LABCLIA [id number] [place] [address] [place] Nucleated RBC (Bld) [#/Vol] 10*3/uL Normal <0.01 [facility] Comment on above: Order Comment: Speci men Type: BLOOD SPECIMENOrdering Facility: [facility] Address: [address] [place] [address] Performed By: #### 5 7021-8 ####[facility] LABCLIA [id number] [place] [address] [place] Nucleated RBC/100 WBC (Bld) [Ratio] 0.0 /100 WBC Normal [facility] Comment on above: Order Comment: Speci men Type: BLOOD SPECIMENOrdering Facility: [facility] Address: [address] [place] [address] Performed By: #### 5 7021-8 ####[facility] LABCLIA [id number] [place] [id number] [place] Platelet mean volume (Bld) [Entitic vol] 12.0 fL Normal 9.0-12.7 [facility] Comment on above: Order Comment: Speci men Type: BLOOD SPECIMENOrdering Facility: [facility] Address: [address] [place] [address] Performed By: #### 5 7021-8 ####[facility] LABIA [id number] [place] [address] [place] Platelets (Bld) [#/Vol] 57 10*3/uL Low 150-400 [facility] Comment on above: Order Comment: Speci men Type: BLOOD SPECIMENOrdering Facility: [facility] Address: [address] [place] [address] Performed By: #### 5 7021-8 ####[facility] [id number] [place] [address] [place] RBC (Bld) [#/Vol] 2.43 10*6/uL Low 4.20-6.00 [facility] Comment on above: Order Comment: Speci men Type: BLOOD SPECIMENOrdering Facility: [facility] Address: [address] [place] [address] Performed By: #### 5 7021-8 ####[facility] [id number] [place] [address] [place] WBC (Bld) [#/Vol] 3.37 10*3/uL Low 3.70-11.00 [facility] Comment on above: Order Comment: Speci men Type: BLOOD SPECIMENOrdering Facility: [facility] Address: [address] [place] [address] Performed By: #### 5 7021-8 ####[facility] [id number] [place] [address] [place] CONSULT PROGon 11-17-2024 CONSULT PROG Normal [facility] Fact Xa PPP-aCncon Coagulation factor X activated act Coag Qn (PPP) <0.10 Normal <0.10 [facility] Comment on above: Order Comment: Speci men Type: BLOOD SPECIMENOrdering Facility: [facility] Address: [address] [place] [address] Result Comment: The recommended therapeutic range for treatment of venous and arterial thrombosis with intravenous unfractionated heparin is an anti Xa activity level of 0.3 to 0.7 IU/mL. In patients with concomitant therapy with thrombolytic agents and/or platelet glycoprotein IIb/IIIa antagonists, the recommended therapeutic range is an anti Xa activity level of 0.2 to 0.5 IU/mL. Performed By: #### 3 217-7 ####[facility] LABIA [id number] [place] [address] [place] Fibrinogen PPP-mCncon 2024 Fibrinogen Coag (PPP) [Mass/Vol] 114 mg/dL Low 200-400 [facility] Comment on above: Order Comment: Ezekiel ramirez Type: BLOOD SPECIMENOrdering Facility: [facility] Address: [address] [place] [address] Performed By: #### 3 255-7, 08352-2 ####[facility] [id number] [place] [address] [place] Hepatic function 2000 panelo n 11-17-2024 Albumin [Mass/Vol] 2.7 g/dL Low 3.9-4.9 [facility] Comment on above: Order Comment: Ezekiel ramirez Type: BLOOD SPECIMENOrdering Facility: [facility] Address: [address] [place] [address] Performed By: #### 2 4321-2, 31367-8, 2777-1 ####[facility] [id number] [place] [address] [place] ALP [Catalytic activity/Vol] 276 U/L High 38-113 [facility] Comment on above: Order Comment: Meggani james Type: BLOOD SPECIMENOrdering Facility: [facility] Address: [address] [place] [address] Performed By: #### 2 4321-2, 23525-0, 2776-08 ####[facility] LABCLIA [id number] [address] [address] [place] ALT [Catalytic activity/Vol] 35 U/L Normal 10-54 [facility] Comment on above: Order Comment: Speci men Type: BLOOD SPECIMENOrdering Facility: [facility] Address: [address] [place] [address] Performed By: #### 2 4321-2, 98786-9, 2776-08 ####[facility] LABCLIA [id number] [place] [id number] [place] AST [Catalytic activity/Vol] 80 U/L High 14-40 [facility] Comment on above: Order Comment: Speci men Type: BLOOD SPECIMENOrdering Facility: [facility] Address: [address] [place] [address] Performed By: #### 2 4321-2, 06358-8, 2776-08 ####[facility] LABIA [id number] [place] [address] [place] Bilirubin [Mass/Vol] 1.8 mg/dL High 0.2-1.3 [facility] Comment on above: Order Comment: Speci men Type: BLOOD SPECIMENOrdering Facility: [facility] Address: [address] [place] [address] Performed By: #### 2 4321-2, 49203-9, 2776-08 ####[facility] LABIA [id number] [place] [id number] [place] Bilirubin.conjugated [Mass/Vol] 1.0 mg/dL High <0.3 [facility] Comment on above: Order Comment: Speci men Type: BLOOD SPECIMENOrdering Facility: [facility] Address: [address] [place], [place] [address] Performed By: #### 2 4321-2, 99973-3, 2776-08 ####[facility] LABCLIA [id number] [place] [id number] [place] Protein [Mass/Vol] 5.2 g/dL Low 6.3-8.0 [facility] Comment on above: Order Comment: Speci men Type: BLOOD SPECIMENOrdering Facility: [facility] Address: [address] [place] [address] Performed By: #### 2 4321-2, 41890-8, 2777-1 ####[facility] LABIA [id number] [place] [id number] [place] NUTRITIONon 11-17-2024 NUTRITION Normal [facility] PSA/PROSTATE SPECIFIC ANTIGE N SCREENINGon 11-17-2024 Prostate specific Ag [Mass/Vol] 0.52 ng/mL Normal <2.60 [facility] Comment on above: Order Comment: Speci men Type: BLOOD SPECIMENOrdering Facility: [facility] Address: [address] [place] [address] Result Comment: Tota l PSA test methodology used is the Electrochemiluminescence Immunoassay by [employer]. Total PSA values by differing methodologies cannot be interchanged. Performed By: #### P SAS1 ####[facility] LABIA [id number] [place] [id number] [place] PT panel Coag (PPP)on 2024 INR Coag (PPP) [Relative time] 2.0 {INR} High 0.9-1.3 [facility] Comment on above: Order Comment: Speci men Type: BLOOD SPECIMENOrdering Facility: [facility] Address: [address] [place] [address] Result Comment: Sarah min K Antagonist (VKA) Therapeutic Range: INR 2 to 3 (Target INR of 2.5)Note: For patients treated with VKA drugs, such as warfarin, the [place] [employer] 2012 Guideline recommends [...] al. Chest 2012, 141:7S-47SHector RA, et al. [facility] 2017, 70: 252-289 Performed By: #### 3 255-7, 61214-5 ####[facility] LABIA [id number] [place] [address] [place] PT Coag (PPP) [Time] 20.6 s High 9.7-13.0 [facility] Comment on above: Order Comment: Speci james Type: BLOOD SPECIMENOrdering Facility: [facility] Address: [address] [place] [address] Performed By: #### 3 255-7, 27996-5 ####[facility] [id number] [place] [address] [place] PTT, ANTICOAGULANT THERAPYon 11-17-2024 aPTT Coag (PPP) [Time] 41.6 s High 23.0-32.4 [facility] Comment on above: Order Comment: Ezekiel ramirez Type: BLOOD SPECIMENOrdering Facility: [facility] Address: [address] [place] [address] Performed By: #### P TTAC ####[facility] [id number] [place] [address] [place] Phosphate SerPl-mCncon 11-17 Phosphate [Mass/Vol] 1.9 mg/dL Low 2.7-4.8 [facility] Comment on above: Order Comment: Ezekiel ramirez Type: BLOOD SPECIMENOrdering Facility: [facility] Address: [address] [place] [address] Performed By: #### 2 4321-2, 54344-0, 2777-1 ####[facility] LABCLIA [id number] [place] [address] [place] THERAPY NTon 11-17-2024 THERAPY NT Normal [facility] aPTT PPPon 11-17-2024 aPTT Coag (PPP) [Time] s High 23.0-32.4 [facility] Comment on above: Order Comment: Ezekiel ramirez Type: BLOOD SPECIMENOrdering Facility: [facility] Address: [address] [place] [address] Result Comment: Resu lt rechecked.Sample checked for clot. Performed By: #### 1 [id number], PTTAC ####[facility] LABIA [id number] [address] [place] ANES POSTPROC EVALon 025 ANES POSTPROC EVAL Normal [facility] ANES PRE-OPon 11-16-2024 ANES PRE-OP Normal [facility] Albumin Fld-mCncon Albumin (Body fld) [Mass/Vol] 0.2 g/dL Normal See Comment [facility] Comment on above: Order Comment: Ezekiel ramirez Type: FLUID SPECIMENOrdering Facility: [facility] Address: [address] [place] [address] Result Comment: Body Fluid Albumin may be [...] document C49A. PAULETTE Diaz: Clinical Laboratory Standards [place]: 2007.2. Amy JACKSON. Serum to ascites albumin gradient. UpToDate. 2015. Accessed on November 15, 2015.This test was developed, and its performance characteristics determined by the [facility] Department of Pathology and Laboratory Medicine. It has not been cleared or approved by the FDA. The [facility] Department of Pathology and Laboratory Medicine is regulated under CLIA as qualified to perform high-complexity testing. This test is used for clinical purposes. It should not be regarded as investigational or for research. Performed By: #### 1 795-4, 2881-1, 1747-5 ####[facility] LABCLIA [id number] [place] [address] [place] Fluid Nom (Body fld) Ascites Fluid Normal [facility] Comment on above: Order Comment: Ezekiel ramirez Type: FLUID SPECIMENOrdering Facility: [facility] Address: [address] [place] [address] Performed By: #### 1 795-4, 2881-1, 1747-5 ####[facility] LABIA [id number] [address] [place] Amylase Fld-cCncon 5 Amylase (Body fld) [Catalytic activity/Vol] 17 U/L Normal See Comment [facility] Comment on above: Order Comment: Ezekiel ramirez Type: FLUID SPECIMENOrdering Facility: [facility] Address: [address] [place] [address] Result Comment: PLEU RAL FLUIDS:Amylase measurement in [...] document C49-A. PAULETTE Diaz: Clinical Laboratory Standards [place]elle; 2007.3. Kelby HDZH, John RC, Star DJ. Use of cyst fluid CEA, CA19-9, and amylase for evaluation of pancreatic lesions. Clinical Biochemistry. 2009;42:6169-5419.This test was developed, and its performance characteristics determined by the [facility] Department of Pathology and Laboratory Medicine. It has not been cleared or approved by the FDA. The [facility] Department of Pathology and Laboratory Medicine is regulated under CLIA as qualified to perform high-complexity testing. This test is used for clinical purposes. It should not be regarded as investigational or for research. Performed By: #### 1 795-4, 2881-1, 1747-5 ####[facility] LABCLIA [id number] [address] [place] BODY FLUID CELL COUNTon 04-1 Clarity (Unsp spec) Clear Normal Clear [facility] Comment on above: Order Comment: Speci men Type: FLUID SPECIMENOrdering Facility: [facility] Address: [address] [place] [address] Performed By: #### C CBF, [id number] ####[facility] LABCLIA [id number] [place] [address] [place] Color (Body fld) Yellow Normal Yellow [facility] Comment on above: Order Comment: Speci men Type: FLUID SPECIMENOrdering Facility: [facility] Address: [address] [place] [address] Performed By: #### C CBF, [id number] ####[facility] LABCLIA [id number] [place] [id number] [place] RBC Manual cnt (Body fld) [#/Vol] 3000 /uL High <2000 [facility] Comment on above: Order Comment: Speci men Type: FLUID SPECIMENOrdering Facility: [facility] Address: [address] [place] [address] Performed By: #### C CBF, [id number] ####[facility] LABCLIA [id number] [address] [place] [address] [place] Specimen source Nom (Body fld) Ascites Fluid Normal [facility] Comment on above: Order Comment: Speci men Type: FLUID SPECIMENOrdering Facility: [facility] Address: [address] [place] [address] Performed By: #### C CBF, [id number] ####[facility] LABCLIA [id number] [address], [place] [address] [place] WBC Manual cnt (Body fld) [#/Vol] 58 /uL Normal <1000 [facility] Comment on above: Order Comment: Speci men Type: FLUID SPECIMENOrdering Facility: [facility] Address: [address] [place] [address] Performed By: #### C CBF, [id number] ####[facility] LABCLIA [id number] [address], [place] [address] [place] Bacteria Fld Culton 11-17-19 Bacteria identified Cx Nom (Body fld) CULTURE, BODY FLD: No growth GRAM STAIN: No organisms seen Few Polymorphonuclear leukocytes Gram stain performed on cytospun specimen. Gram stain from primary specimen Normal [facility] Comment on above: Performed By: #### 6 35-3, 611-4 ####[facility] LABCLIA [id number] [address] [place] [address] [place] Bacteria Spec Anaerobe Culto n 11-16-2024 Bacteria identified Anaer cx Nom (Unsp spec) Negative Normal [facility] Comment on above: Performed By: #### 6 35-3, 611-4 ####[facility] LABCLIA [id number] [address] [place] [address] [place] Basic metabolic 2000 panelon 11-16-2024 Anion gap [Moles/Vol] 10 mmol/L Normal 8-[address] [facility] Comment on above: Order Comment: Speci men Type: BLOOD SPECIMENOrdering Facility: [facility] Address: [address] [place], [place] [address] Performed By: #### 2 4321-2, 00846-4, 2776-1 ####[facility] LABCLIA [id number] [place] [address] [place] Calcium [Mass/Vol] 8.4 mg/dL Low 8.5-10.2 [facility] Comment on above: Order Comment: Speci men Type: BLOOD SPECIMENOrdering Facility: [facility] Address: [address] [place] [address] Performed By: #### 2 4321-2, 82648-2, 2776- ####[facility] LABCLIA [id number] [place] [address] [place] Chloride [Moles/Vol] 102 mmol/L Normal 98-107 [facility] Comment on above: Order Comment: Speci men Type: BLOOD SPECIMENOrdering Facility: [facility] Address: [address] [place] [address] Performed By: #### 2 4321-2, 93219-4, 2776- ####[facility] LABCLIA [id number] [place] [address] [place] CO2 [Moles/Vol] 18 mmol/L Low 22-30 [facility] Comment on above: Order Comment: Speci men Type: BLOOD SPECIMENOrdering Facility: [facility] Address: [address] [place], [place] [address] Performed By: #### 2 4321-2, 29082-0, 2776-1 ####[facility] LABCLIA [id number] [address] [address] [place] Creatinine [Mass/Vol] 0.73 mg/dL Normal 0.73-1.[address] [facility] Comment on above: Order Comment: Ezekiel ramirez Type: BLOOD SPECIMENOrdering Facility: [facility] Address: [address] [place] [address] Performed By: #### 2 4321-2, 48570-2, 2777-1 ####[facility] LABIA [id number] [place] [address] [place] [facility] Creatinine and Glomerular filtration rate.predicted panel (S/P/Bld) 105 mL/min/1.73m??? Normal >=60 [facility] Comment on above: Order Comment: Ezekiel ramirez Type: BLOOD SPECIMENOrdering Facility: [facility] Address: [address] [place] [address] Result Comment: Patric mated Glomerular Filtration Rate [...] actual GFR. Performed By: #### 2 4321-2, 83962-1, 2776-08 ####[facility] LABIA [id number] [place] [address] [place] Glucose [Mass/Vol] 181 mg/dL High 74-99 [facility] Comment on above: Order Comment: Ezekiel ramirez Type: BLOOD SPECIMENOrdering Facility: [facility] Address: [address] [place] [address] Result Comment: The [place] [employer] (ADA) provides guidance for cutoff [...] Standards of Medical Care in Diabetes 2016, [place] [employer]. Diabetes Care. 2016.39(Suppl 1). Performed By: #### 2 4321-2, 62274-5, 2776- ####[facility] LABCLIA [id number] [place] [id number] [place] Potassium [Moles/Vol] 3.6 mmol/L Low 3.7-5.[address] [facility] Comment on above: Order Comment: Speci men Type: BLOOD SPECIMENOrdering Facility: [facility] Address: [address] [place] [address] Performed By: #### 2 4321-2, 17697-0, 2776-08 ####[facility] LABCLIA [id number] [place] [address] [place] Sodium [Moles/Vol] 130 mmol/L Low 136-144 [facility] Comment on above: Order Comment: Speci men Type: BLOOD SPECIMENOrdering Facility: [facility] Address: [address] [place] [address] Performed By: #### 2 432-2, 54317-7, 2776-08 ####[facility] LABIA [id number] [place] [address] [place] Urea nitrogen [Mass/Vol] 9 mg/dL Normal 9-24 [facility] Comment on above: Order Comment: Speci men Type: BLOOD SPECIMENOrdering Facility: [facility] Address: [address] [place] [address] Performed By: #### 2 432-2, 75660-5, 2776-08 ####[facility] LABCLIA [id number] [address] [address] [place] CBC W Auto Differential pane l (Bld)on 11-16-2024 Basophils (Bld) [#/Vol] 0.05 10*3/uL Normal <0.11 [facility] Comment on above: Order Comment: Speci men Type: BLOOD SPECIMENOrdering Facility: [facility] Address: [address] [place] [address] Performed By: #### 5 7021-8 ####[facility] LABCLIA [id number] [address] [place] [address] [place] Basophils/100 WBC (Bld) 0.8 % Normal [facility] Comment on above: Order Comment: Speci men Type: BLOOD SPECIMENOrdering Facility: [facility] Address: [address] [place] [address] Performed By: #### 5 7021-8 ####[facility] LABCLIA [id number] [address], [place] [address] [place] Differential cell count method Nom (Bld) Auto Normal [facility] Comment on above: Order Comment: Speci men Type: BLOOD SPECIMENOrdering Facility: [facility] Address: [address] [place] [address] Performed By: #### 5 7021-8 ####[facility] LABCLIA [id number] [place] [address] [place] Eosinophils (Bld) [#/Vol] 0.22 10*3/uL Normal <0.46 [facility] Comment on above: Order Comment: Speci men Type: BLOOD SPECIMENOrdering Facility: [facility] Address: [address] [place] [address] Performed By: #### 5 7021-8 ####[facility] LABCLIA [id number] [place] [address] [place] Eosinophils/100 WBC (Bld) 3.6 % Normal [facility] Comment on above: Order Comment: Speci men Type: BLOOD SPECIMENOrdering Facility: [facility] Address: [address] [place] [address] Performed By: #### 5 7021-8 ####[facility] LABCLIA [id number] [place] [address] [place] Erythrocyte distribution width (RBC) [Ratio] 16.7 % High 11.5-15.0 [facility] Comment on above: Order Comment: Speci men Type: BLOOD SPECIMENOrdering Facility: [facility] Address: [address] [place] [address] Performed By: #### 5 7021-8 ####[facility] LABIA [id number] [place] [address] [place] Hematocrit (Bld) [Volume fraction] 24.0 % Low 39.0-51.0 [facility] Comment on above: Order Comment: Speci men Type: BLOOD SPECIMENOrdering Facility: [facility] Address: [address] [place] [address] Performed By: #### 5 7021-8 ####[facility] LABIA [id number] [place] [address] [place] Hemoglobin (Bld) [Mass/Vol] 8.3 g/dL Low 13.0-17.0 [facility] Comment on above: Order Comment: Speci men Type: BLOOD SPECIMENOrdering Facility: [facility] Address: [address] [place] [address] Performed By: #### 5 7021-8 ####[facility] LABIA [id number] [place] [address] [place] Immature granulocytes (Bld) [#/Vol] 0.05 10*3/uL Normal <0.10 [facility] Comment on above: Order Comment: Speci men Type: BLOOD SPECIMENOrdering Facility: [facility] Address: [address] [place] [address] Performed By: #### 5 7021-8 ####[facility] LABIA [id number] [place] [address] [place] Immature granulocytes/100 WBC (Bld) 0.8 % Normal [facility] Comment on above: Order Comment: Speci men Type: BLOOD SPECIMENOrdering Facility: [facility] Address: [address] [place] [address] Performed By: #### 5 7021-8 ####[facility] LABCLIA [id number] [place] [address] [place] Lymphocytes (Bld) [#/Vol] 0.75 10*3/uL Low 1.00-4.00 [facility] Comment on above: Order Comment: Speci men Type: BLOOD SPECIMENOrdering Facility: [facility] Address: [address] [place] [address] Performed By: #### 5 7021-8 ####[facility] LABIA [id number] [place] [address] [place] Lymphocytes/100 WBC (Bld) 12.4 % Normal [facility] Comment on above: Order Comment: Speci men Type: BLOOD SPECIMENOrdering Facility: [facility] Address: [address] [place] [address] Performed By: #### 5 7021-8 ####[facility] LABCLIA [id number] [place] [address] [place] MCH (RBC) [Entitic mass] 31.9 pg Normal 26.0-34.0 [facility] Comment on above: Order Comment: Speci men Type: BLOOD SPECIMENOrdering Facility: [facility] Address: [address] [place] [address] Performed By: #### 5 7021-8 ####[facility] LABCLIA [id number] [place] [address] [place] MCHC (RBC) [Mass/Vol] 34.6 g/dL Normal 30.5-36.[address] [facility] Comment on above: Order Comment: Speci men Type: BLOOD SPECIMENOrdering Facility: [facility] Address: [address] [place] [address] Performed By: #### 5 7021-8 ####[facility] LABCLIA [id number] [address], [place] [address] [place] MCV (RBC) [Entitic vol] 92.3 fL Normal 80.0-100.0 [facility] Comment on above: Order Comment: Speci men Type: BLOOD SPECIMENOrdering Facility: [facility] Address: [address] [place] [address] Performed By: #### 5 7021-8 ####[facility] LABCLIA [id number] [place] [address] [place] Monocytes (Bld) [#/Vol] 0.68 10*3/uL Normal <0.87 [facility] Comment on above: Order Comment: Speci men Type: BLOOD SPECIMENOrdering Facility: [facility] Address: [address] [place] [address] Performed By: #### 5 7021-8 ####[facility] LABIA [id number] [place] [address] [place] Monocytes/100 WBC (Bld) 11.3 % Normal [facility] Comment on above: Order Comment: Speci men Type: BLOOD SPECIMENOrdering Facility: [facility] Address: [address] [place] [address] Performed By: #### 5 7021-8 ####[facility] LABCLIA [id number] [place] [address] [place] Neutrophils (Bld) [#/Vol] 4.28 10*3/uL Normal 1.45-7.50 [facility] Comment on above: Order Comment: Speci men Type: BLOOD SPECIMENOrdering Facility: [facility] Address: [address] [place] [address] Performed By: #### 5 7021-8 ####[facility] LABIA [id number] [place] [id number] [place] Neutrophils/100 WBC (Bld) 71.1 % Normal [facility] Comment on above: Order Comment: Speci men Type: BLOOD SPECIMENOrdering Facility: [facility] Address: [address] [place] [address] Performed By: #### 5 7021-8 ####[facility] LABCLIA [id number] [facility] [place] [address] [place] Nucleated RBC (Bld) [#/Vol] 10*3/uL Normal <0.01 [facility] Comment on above: Order Comment: Speci men Type: BLOOD SPECIMENOrdering Facility: [facility] Address: [address] [place] [address] Performed By: #### 5 7021-8 ####[facility] LABCLIA [id number] [place] [address] [place] Nucleated RBC/100 WBC (Bld) [Ratio] 0.0 /100 WBC Normal [facility] Comment on above: Order Comment: Speci men Type: BLOOD SPECIMENOrdering Facility: [facility] Address: [address] [place] [address] Performed By: #### 5 7021-8 ####[facility] LABCLIA [id number] [place] [address] [place] Platelet mean volume (Bld) [Entitic vol] 11.8 fL Normal 9.0-12.7 [facility] Comment on above: Order Comment: Speci men Type: BLOOD SPECIMENOrdering Facility: [facility] Address: [address] [place] [address] Performed By: #### 5 7021-8 ####[facility] LABCLIA [id number] [place] [id number] [place] Platelets (Bld) [#/Vol] 59 10*3/uL Low 150-400 [facility] Comment on above: Order Comment: Speci men Type: BLOOD SPECIMENOrdering Facility: [facility] Address: [address] [place] [address] Result Comment: No c lot detected.Results checked and verified. Performed By: #### 5 7021-8 ####[facility] LABCLIA [id number] [place] [address] [place] RBC (Bld) [#/Vol] 2.60 10*6/uL Low 4.20-6.00 [facility] Comment on above: Order Comment: Speci men Type: BLOOD SPECIMENOrdering Facility: [facility] Address: [address] [place] [address] Performed By: #### 5 7021-8 ####[facility] LABCLIA [id number] [place] [address] [place] WBC (Bld) [#/Vol] 6.03 10*3/uL Normal 3.70-11.00 [facility] Comment on above: Order Comment: Speci men Type: BLOOD SPECIMENOrdering Facility: [facility] Address: [address] [place] [address] Performed By: #### 5 7021-8 ####[facility] LABCLIA [id number] [place] [address] [place] CONSULT PROGon 11-16-2024 CONSULT PROG Normal [facility] CYTOLOGY NON-GYNon 5 AP DISCLAIMER Normal [facility] Comment on above: Order Comment: Speci men Type: FLUID SPECIMENOrdering Facility: [facility] Address: [address] [place] [address] Result Comment: Shellie pugh Developed Test (LDT) Disclaimer:Performance characteristics of immunohistochemical, immunofluorescent, and chromogenic in-situ hybridization tests have been determined by the performing laboratory within [facility]'s [facility] Pathology and Laboratory Medicine Department ([facility], [facility], [facility], [facility], [facility], [facility], or [facility]) in a manner consistent with [...] appropriately. Performed By: #### C YTONON ####[facility] LABCLIA [id number] [place] [address] [place] CASE REPORT Normal [facility] Comment on above: Order Comment: Speci men Type: FLUID SPECIMENOrdering Facility: [facility] Address: [address] [place] [address] Result Comment: [facility] Cytology Report Case: [id number] Provider: Young Cruz MD Collected: 11/16/2024 08:42 AMOrdering Location: [place] [address] Received: 11/16/2024 06:20 PMPathologist: Stefani Mcneal MDSpecimen: Peritoneal Fluid. Performed By: #### C YTONON ####[facility] LABCLIA [id number] [place] [address] [place] CLINICAL HISTORY Cirrhosis with ascites Normal [facility] Comment on above: Order Comment: Speci men Type: FLUID SPECIMENOrdering Facility: [facility] Address: [address] [place] [address] Performed By: #### C YTONON ####[facility] LABCLIA [id number] [address] [place] FINAL DIAGNOSIS Normal [facility] Comment on above: Order Comment: Speci men Type: FLUID SPECIMENOrdering Facility: [facility] Address: [address] [place] [address] Result Comment: A - Peritoneal Fluid Negative for malignant cells. Chronic inflammation.The following cell blocks were associated with this case:A1 Cell Block, Alcohol Fixed at 1223 EDT Performed By: #### C YTONON ####[facility] LABCLIA [id number] [place] [address] [place] FINAL PERFORMING LAB Normal [facility] Comment on above: Order Comment: Speci men Type: FLUID SPECIMENOrdering Facility: [facility] Address: [address] [place] [address] Result Comment: Tech nical component, office spec screening performed at: [facility], [address] [place] [address] CLIA: [id number] interpretation performed at: [facility], [address] [place] [address] CLIA# [id number] Director: Titi Voss MD Performed By: #### C YTONON ####[facility] LABCLIA [id number] [place] [address] [place] GROSS DESCRIPTION Normal [facility] Comment on above: Order Comment: Speci men Type: FLUID SPECIMENOrdering Facility: [facility] Address: [address] [place] [address] Result Comment: A. P eritoneal Fluid.1450 cc opaque red fluid . ThinPrep and Cell Block prepared. Performed By: #### C YTONON ####[facility] LABCLIA [id number] [place] [address] [place] ECG COMPLETEon 11-16-2024 ECG COMPLETE Normal [facility] Fibrinogen PPP-mCncon 2024 Fibrinogen Coag (PPP) [Mass/Vol] 127 mg/dL Low 200-400 [facility] Comment on above: Order Comment: Speci men Type: BLOOD SPECIMENOrdering Facility: [facility] Address: [address] [place] [address] Performed By: #### 3 255-7, 92264-0 ####[facility] LABCLIA [id number] [place] [address] [place] Hepatic function 2000 panelo n 11-16-2024 Albumin [Mass/Vol] 2.8 g/dL Low 3.9-4.9 [facility] Comment on above: Order Comment: Speci men Type: BLOOD SPECIMENOrdering Facility: [facility] Address: [address] [place] [address] Performed By: #### 2 4321-2, 28688-7, 2776- ####[facility] LABCLIA [id number] [place] [address] [place] ALP [Catalytic activity/Vol] 295 U/L High 38-113 [facility] Comment on above: Order Comment: Speci men Type: BLOOD SPECIMENOrdering Facility: [facility] Address: [address] [place] [address] Performed By: #### 2 4321-2, 61360-4, 2776- ####[facility] LABCLIA [id number] [place] [address] [place] ALT [Catalytic activity/Vol] 38 U/L Normal 10-54 [facility] Comment on above: Order Comment: Speci men Type: BLOOD SPECIMENOrdering Facility: [facility] Address: [address] [place] [address] Performed By: #### 2 4321-2, 32798-3, 2776- ####[facility] LABCLIA [id number] [place] [address] [place] AST [Catalytic activity/Vol] 88 U/L High 14-40 [facility] Comment on above: Order Comment: Speci men Type: BLOOD SPECIMENOrdering Facility: [facility] Address: [address] [place] [address] Performed By: #### 2 4321-2, 09420-0, 2776- ####[facility] LABCLIA [id number] [address] [address] [place] Bilirubin [Mass/Vol] 1.8 mg/dL High 0.2-1.3 [facility] Comment on above: Order Comment: Speci men Type: BLOOD SPECIMENOrdering Facility: [facility] Address: [address] [place], [place] [address] Performed By: #### 2 4321-2, 70821-4, 277- ####[facility] LABCLIA [id number] [address] [place] [address] [place] Bilirubin.conjugated [Mass/Vol] 0.9 mg/dL High <0.3 [facility] Comment on above: Order Comment: Speci men Type: BLOOD SPECIMENOrdering Facility: [facility] Address: [address] [place] [address] Performed By: #### 2 4321-2, 20354-3, 277- ####[facility] LABCLIA [id number] [address] [place] [address] [place] Protein [Mass/Vol] 5.5 g/dL Low 6.3-8.0 [facility] Comment on above: Order Comment: Speci men Type: BLOOD SPECIMENOrdering Facility: [facility] Address: [address] [place] [address] Performed By: #### 2 4321-2, 61695-7, 27702-01 ####[facility] LABCLIA [id number] [address] [place] [address] [place] MANUAL DIFFERENTIAL, BODY FL UIDon 11-16-2024 DIF TTL, BODY FLUID 100 cells counted Normal [facility] Comment on above: Order Comment: Speci men Type: FLUID SPECIMENOrdering Facility: [facility] Address: [address] [place] [address] Performed By: #### C CBF, [id number] ####[facility] LABCLIA [id number] [address] [place] [address] [place] LYMPH%, BF 47 % High 18-36 [facility] Comment on above: Order Comment: Speci men Type: FLUID SPECIMENOrdering Facility: [facility] Address: [address] [place] [address] Performed By: #### C CBF, [id number] ####[facility] LABCLIA [id number] [address], [place] [address] [place] MACRO%, BF 6 % Low 64-80 [facility] Comment on above: Order Comment: Speci men Type: FLUID SPECIMENOrdering Facility: [facility] Address: [address] [place] [address] Performed By: #### C CBF, [id number] ####[facility] LABCLIA [id number] [address], [place] [address] [place] MESO %, BF 25 % High 0-2 [facility] Comment on above: Order Comment: Speci men Type: FLUID SPECIMENOrdering Facility: [facility] Address: [address] [place] [address] Performed By: #### C CBF, [id number] ####[facility] LABCLIA [id number] [place] [address] [place] MONO% BF 8 % Normal [facility] Comment on above: Order Comment: Speci men Type: FLUID SPECIMENOrdering Facility: [facility] Address: [address] [place] [address] Performed By: #### C CBF, [id number] ####[facility] LABCLIA [id number] [place] [address] [place] NEUT%, BF 14 % High 0-1 [facility] Comment on above: Order Comment: Speci men Type: FLUID SPECIMENOrdering Facility: [facility] Address: [address] [place] [address] Performed By: #### C CBF, [id number] ####[facility] LABCLIA [id number] [place] [address] [place] NURSING PROGon 11-16-2024 NURSING PROG Normal [facility] NURSING PROG Normal [facility] PT panel Coag (PPP)on 2024 INR Coag (PPP) [Relative time] 2.1 {INR} High 0.9-1.3 [facility] Comment on above: Order Comment: Ezekiel ramirez Type: BLOOD SPECIMENOrdering Facility: [facility] Address: [address] [place] [address] Result Comment: Sarah min K Antagonist (VKA) Therapeutic Range: INR 2 to 3 (Target INR of 2.5)Note: For patients treated with VKA drugs, such as warfarin, the [employer] 2012 Guideline recommends [...] al. Chest 2012, 141:7S-47SNishimnicolle RA, et al. [facility] 2017, 70: 252-289 Performed By: #### 3 4528-0 ####[facility] [id number] [place] [address] [place] PT Coag (PPP) [Time] 21.5 s High 9.7-13.0 [facility] Comment on above: Order Comment: Ezekiel ramirez Type: BLOOD SPECIMENOrdering Facility: [facility] Address: [address] [place] [address] Performed By: #### 3 4528-0 ####[facility] [id number] [place] [address] [place] INR Coag (PPP) [Relative time] 2.0 {INR} High 0.9-1.3 [facility] Comment on above: Order Comment: Ezekiel ramirez Type: BLOOD SPECIMENOrdering Facility: [facility] Address: [address] [place] [address] Result Comment: Sarah min K Antagonist (VKA) Therapeutic Range: INR 2 to 3 (Target INR of 2.5)Note: For patients treated with VKA drugs, such as warfarin, the [employer] 2012 Guideline recommends [...] al. Chest 2012, 141:7S-47SHector RA, et al. [facility] 2017, 70: 252-289 Performed By: #### 3 255-7, 36367-0 ####[facility] [id number] [place] [address] [place] PT Coag (PPP) [Time] 20.3 s High 9.7-13.0 [facility] Comment on above: Order Comment: Speci men Type: BLOOD SPECIMENOrdering Facility: [facility] Address: [address] [place] [address] Performed By: #### 3 255-7, 83024-8 ####[facility] [id number] [place] [id number] [place] Phosphate SerPl-mCncon 11-16 Phosphate [Mass/Vol] 2.3 mg/dL Low 2.7-4.8 [facility] Comment on above: Order Comment: Speci men Type: BLOOD SPECIMENOrdering Facility: [facility] Address: [address] [place] [address] Performed By: #### 2 4321-2, 16249-1, 2777-1 ####[facility] LABIA [id number] [place] [address] [place] Prot Fld-mCncon 11-16-2024 Protein (Body fld) [Mass/Vol] 0.5 g/dL Normal See Comment [facility] Comment on above: Order Comment: Speci men Type: FLUID SPECIMENOrdering Facility: [facility] Address: [address] [place] [address] Result Comment: Sero us fluids: Effusions are [...] document [email or web address]. PAULETTE Diaz: Clinical Laboratory Standards [place]: 2007. Performed By: #### 1 795-4, 2881-1, 1747-5 ####[facility] [id number] [place] [address] [place] THERAPY NTon 11-16-2024 THERAPY NT Normal [facility] THERAPY NT Normal [facility] BLOOD TB SCREENon 11-15-2024 M. tuberculosis tuberculin stim IFN-g Ql (Bld) Indeterminate Normal [facility] Comment on above: Order Comment: Speci men Type: BLOOD SPECIMENOrdering Facility: [facility] Address: [address] [place] [address] Performed By: #### I NFTBP ####[facility] [id number] [place] [address] [place] MITOGEN MINUS NIL 0.25 IU/mL Low >=0.50 [facility] Comment on above: Order Comment: Speci men Type: BLOOD SPECIMENOrdering Facility: [facility] Address: [address] [place] [address] Performed By: #### I NFTBP ####[facility] LABCLIA [id number] [place] [address] [place] TB GAMMA INTERPRETATION Normal [facility] Comment on above: Order Comment: Speci men Type: BLOOD SPECIMENOrdering Facility: [facility] Address: [address] [place] [address] Performed By: #### I NFTBP ####[facility] LABCLIA [id number] [place] [address] [place] TB NIL 0.01 IU/mL Normal <=8.00 [facility] Comment on above: Order Comment: Speci men Type: BLOOD SPECIMENOrdering Facility: [facility] Address: [address] [place] [address] Performed By: #### I NFTBP ####[facility] LABCLIA [id number] [place] [address] [place] TB1 AG MINUS NIL 0.00 IU/mL Normal <0.35 [facility] Comment on above: Order Comment: Speci men Type: BLOOD SPECIMENOrdering Facility: [facility] Address: [address] [place] [address] Performed By: #### I NFTBP ####[facility] LABCLIA [id number] [place] [address] [place] TB2 AG MINUS NIL 0.01 IU/mL Normal <0.35 [facility] Comment on above: Order Comment: Speci men Type: BLOOD SPECIMENOrdering Facility: [facility] Address: [address] [place] [address] Performed By: #### I NFTBP ####[facility] LABCLIA [id number] [place] [address] [place] CASE MANAGEMon 11-15-2024 CASE MANAGEM Normal [facility] CASE MANAGEM Normal [facility] CBC W Auto Differential pane l (Bld)on 11-15-2024 Basophils (Bld) [#/Vol] 0.05 10*3/uL Normal <0.11 [facility] Comment on above: Order Comment: Speci men Type: BLOOD SPECIMENOrdering Facility: [facility] Address: [address] [place] [address] Performed By: #### 5 7021-8 ####[facility] LABCLIA [id number] [place] [address] [place] Basophils/100 WBC (Bld) 0.8 % Normal [facility] Comment on above: Order Comment: Speci men Type: BLOOD SPECIMENOrdering Facility: [facility] Address: [address] [place] [address] Performed By: #### 5 7021-8 ####[facility] LABCLIA [id number] [place] [address] [place] Differential cell count method Nom (Bld) Auto Normal [facility] Comment on above: Order Comment: Speci men Type: BLOOD SPECIMENOrdering Facility: [facility] Address: [address] [place] [address] Performed By: #### 5 7021-8 ####[facility] LABCLIA [id number] [place] [address] [place] Eosinophils (Bld) [#/Vol] 0.28 10*3/uL Normal <0.46 [facility] Comment on above: Order Comment: Speci men Type: BLOOD SPECIMENOrdering Facility: [facility] Address: [address] [place] [address] Performed By: #### 5 7021-8 ####[facility] LABCLIA [id number] [place] [address] [place] Eosinophils/100 WBC (Bld) 4.6 % Normal [facility] Comment on above: Order Comment: Speci men Type: BLOOD SPECIMENOrdering Facility: [facility] Address: [address] [place] [address] Performed By: #### 5 7021-8 ####[facility] LABIA [id number] [place] [address] [place] Erythrocyte distribution width (RBC) [Ratio] 16.8 % High 11.5-15.0 [facility] Comment on above: Order Comment: Speci men Type: BLOOD SPECIMENOrdering Facility: [facility] Address: [address] [place] [address] Performed By: #### 5 7021-8 ####[facility] LABIA [id number] [place] [address] [place] Hematocrit (Bld) [Volume fraction] 22.9 % Low 39.0-51.0 [facility] Comment on above: Order Comment: Speci men Type: BLOOD SPECIMENOrdering Facility: [facility] Address: [address] [place] [address] Performed By: #### 5 7021-8 ####[facility] LABIA [id number] [place] [address] [place] Hemoglobin (Bld) [Mass/Vol] 7.6 g/dL Low 13.0-17.0 [facility] Comment on above: Order Comment: Speci men Type: BLOOD SPECIMENOrdering Facility: [facility] Address: [address] [place] [address] Performed By: #### 5 7021-8 ####[facility] LABIA [id number] [place] [address] [place] Immature granulocytes (Bld) [#/Vol] 0.03 10*3/uL Normal <0.10 [facility] Comment on above: Order Comment: Speci men Type: BLOOD SPECIMENOrdering Facility: [facility] Address: [address] [place] [address] Performed By: #### 5 7021-8 ####[facility] LABCLIA [id number] [place] [address] [place] Immature granulocytes/100 WBC (Bld) 0.5 % Normal [facility] Comment on above: Order Comment: Speci men Type: BLOOD SPECIMENOrdering Facility: [facility] Address: [address] [place] [address] Performed By: #### 5 7021-8 ####[facility] LABCLIA [id number] [place] [address] [place] Lymphocytes (Bld) [#/Vol] 0.70 10*3/uL Low 1.00-4.00 [facility] Comment on above: Order Comment: Speci men Type: BLOOD SPECIMENOrdering Facility: [facility] Address: [address] [place] [address] Performed By: #### 5 7021-8 ####[facility] LABIA [id number] [place] [address] [place] Lymphocytes/100 WBC (Bld) 11.5 % Normal [facility] Comment on above: Order Comment: Speci men Type: BLOOD SPECIMENOrdering Facility: [facility] Address: [address] [place] [address] Performed By: #### 5 7021-8 ####[facility] LABIA [id number] [place] [address] [place] MCH (RBC) [Entitic mass] 30.6 pg Normal 26.0-34.0 [facility] Comment on above: Order Comment: Speci men Type: BLOOD SPECIMENOrdering Facility: [facility] Address: [address] [place] [address] Performed By: #### 5 7021-8 ####[facility] LABCLIA [id number] [place] [id number] [place] MCHC (RBC) [Mass/Vol] 33.2 g/dL Normal 30.5-36.[address] [facility] Comment on above: Order Comment: Speci men Type: BLOOD SPECIMENOrdering Facility: [facility] Address: [address] [place] [address] Performed By: #### 5 7021-8 ####[facility] LABIA [id number] [address] [address] [place] MCV (RBC) [Entitic vol] 92.3 fL Normal 80.0-100.0 [facility] Comment on above: Order Comment: Speci men Type: BLOOD SPECIMENOrdering Facility: [facility] Address: [address] [place] [address] Performed By: #### 5 7021-8 ####[facility] LABIA [id number] [place] [address] [place] Monocytes (Bld) [#/Vol] 0.73 10*3/uL Normal <0.87 [facility] Comment on above: Order Comment: Speci men Type: BLOOD SPECIMENOrdering Facility: [facility] Address: [address] [place] [address] Performed By: #### 5 7021-8 ####[facility] LABIA [id number] [place] [address] [place] Monocytes/100 WBC (Bld) 12.0 % Normal [facility] Comment on above: Order Comment: Speci men Type: BLOOD SPECIMENOrdering Facility: [facility] Address: [address] [place] [address] Performed By: #### 5 7021-8 ####[facility] LABIA [id number] [place] [address] [place] Neutrophils (Bld) [#/Vol] 4.30 10*3/uL Normal 1.45-7.50 [facility] Comment on above: Order Comment: Speci men Type: BLOOD SPECIMENOrdering Facility: [facility] Address: [address] [place] [address] Performed By: #### 5 7021-8 ####[facility] LABCLIA [id number] [place] [address] [place] Neutrophils/100 WBC (Bld) 70.6 % Normal [facility] Comment on above: Order Comment: Speci men Type: BLOOD SPECIMENOrdering Facility: [facility] Address: [address] [place] [address] Performed By: #### 5 7021-8 ####[facility] LABCLIA [id number] [place] [address] [place] Nucleated RBC (Bld) [#/Vol] 10*3/uL Normal <0.01 [facility] Comment on above: Order Comment: Speci men Type: BLOOD SPECIMENOrdering Facility: [facility] Address: [address] [place] [address] Performed By: #### 5 7021-8 ####[facility] LABIA [id number] [place] [address] [place] Nucleated RBC/100 WBC (Bld) [Ratio] 0.0 /100 WBC Normal [facility] Comment on above: Order Comment: Speci men Type: BLOOD SPECIMENOrdering Facility: [facility] Address: [address] [place] [address] Performed By: #### 5 7021-8 ####[facility] LABIA [id number] [place] [address] [place] Platelet mean volume (Bld) [Entitic vol] 12.2 fL Normal 9.0-12.7 [facility] Comment on above: Order Comment: Speci men Type: BLOOD SPECIMENOrdering Facility: [facility] Address: [address] [place] [address] Performed By: #### 5 7021-8 ####[facility] LABIA [id number] [place] [address] [place] Platelets (Bld) [#/Vol] 53 10*3/uL Low 150-400 [facility] Comment on above: Order Comment: Speci men Type: BLOOD SPECIMENOrdering Facility: [facility] Address: [address] [place] [address] Performed By: #### 5 7021-8 ####[facility] LABCLIA [id number] [place] [address] [place] RBC (Bld) [#/Vol] 2.48 10*6/uL Low 4.20-6.00 [facility] Comment on above: Order Comment: Speci men Type: BLOOD SPECIMENOrdering Facility: [facility] Address: [address] [place] [address] Performed By: #### 5 7021-8 ####[facility] LABCLIA [id number] [place] [address] [place] WBC (Bld) [#/Vol] 6.09 10*3/uL Normal 3.70-11.00 [facility] Comment on above: Order Comment: Speci men Type: BLOOD SPECIMENOrdering Facility: [facility] Address: [address] [place] [address] Performed By: #### 5 7021-8 ####[facility] LABCLIA [id number] [place] [address] [place] CNOVon 11-15-2024 CNOV Normal [facility] CONSULTon 11-15-2024 CONSULT Normal [facility] CONSULT PROGon 11-15-2024 CONSULT PROG Normal [facility] Fibrinogen PPP-mCncon 2024 Fibrinogen Coag (PPP) [Mass/Vol] 123 mg/dL Low 200-400 [facility] Comment on above: Order Comment: Speci men Type: BLOOD SPECIMENOrdering Facility: [facility] Address: [address] [place] [address] Performed By: #### 3 255-7, 78635-8 ####[facility] LABCLIA [id number] [facility] [address] [place] [address] [place] Hepatic function 2000 panelo n 11-15-2024 Albumin [Mass/Vol] 2.8 g/dL Low 3.9-4.9 [facility] Comment on above: Order Comment: Speci men Type: BLOOD SPECIMENOrdering Facility: [facility] Address: [address] [place] [address] Performed By: #### 2 4325-3, 07822-4 ####[facility] LABCLIA [id number] [facility] [address], [facility] [place] ALP [Catalytic activity/Vol] 277 U/L High 38-113 [facility] Comment on above: Order Comment: Speci men Type: BLOOD SPECIMENOrdering Facility: [facility] Address: [address] [place] [address] Performed By: #### 2 4325-3, 00688-0 ####[facility] LABCLIA [id number] [facility] [address], [facility] [place] ALT [Catalytic activity/Vol] 36 U/L Normal 10-54 [facility] Comment on above: Order Comment: Speci men Type: BLOOD SPECIMENOrdering Facility: [facility] Address: [address] [place] [address] Performed By: #### 2 4325-3, 06571-6 ####[facility] LABCLIA [id number] [place] [id number] [place] AST [Catalytic activity/Vol] 87 U/L High 14-40 [facility] Comment on above: Order Comment: Speci men Type: BLOOD SPECIMENOrdering Facility: [facility] Address: [address] [place] [address] Performed By: #### 2 4325-3, 14996-6 ####[facility] LABCLIA [id number] [place] [id number] [place] Bilirubin [Mass/Vol] 1.6 mg/dL High 0.2-1.3 [facility] Comment on above: Order Comment: Speci men Type: BLOOD SPECIMENOrdering Facility: [facility] Address: [address] [place] [address] Performed By: #### 2 4325-3, 47189-3 ####[facility] LABIA [id number] [place] [address] [place] Bilirubin.conjugated [Mass/Vol] 0.9 mg/dL High <0.3 [facility] Comment on above: Order Comment: Speci men Type: BLOOD SPECIMENOrdering Facility: [facility] Address: [address] [place] [address] Performed By: #### 2 4325-3, 49205-0 ####[facility] [id number] [place] [address] [place] Protein [Mass/Vol] 5.4 g/dL Low 6.3-8.0 [facility] Comment on above: Order Comment: Speci men Type: BLOOD SPECIMENOrdering Facility: [facility] Address: [address] [place] [address] Performed By: #### 2 4325-3, 09709-8 ####[facility]UN[facility] [id number] [place] [address] [place] PT panel Coag (PPP)on 2024 INR Coag (PPP) [Relative time] 1.8 {INR} High 0.9-1.3 [facility] Comment on above: Order Comment: Speci men Type: BLOOD SPECIMENOrdering Facility: [facility] Address: [address] [place] [address] Result Comment: Sarah min K Antagonist (VKA) Therapeutic Range: INR 2 to 3 (Target INR of 2.5)Note: For patients treated with VKA drugs, such as warfarin, the [employer] 2012 Guideline recommends [...] al. Chest 2012, 141:7S-47SNishimura RA, et al. [facility] 2017, 70: 252-289 Performed By: #### 3 255-7, 65801-5 ####[facility] LABIA [id number] [place] [address] [place] PT Coag (PPP) [Time] 18.9 s High 9.7-13.0 [facility] Comment on above: Order Comment: Ezekiel ramirez Type: BLOOD SPECIMENOrdering Facility: [facility] Address: [address] [place] [address] Performed By: #### 3 255-7, 42146-8 ####[facility] LABIA [id number] [place] [address] [place] Renal function 2000 panelon 11-15-2024 Albumin [Mass/Vol] 2.9 g/dL Low 3.9-4.9 [facility] Comment on above: Order Comment: Ezekiel ramirez Type: BLOOD SPECIMENOrdering Facility: [facility] Address: [address] [place] [address] Performed By: #### 2 4325-3, 46525-0 ####[facility] LABIA [id number] [place] [address] [place] Anion gap [Moles/Vol] 15 mmol/L Normal 8-[address] [facility] Comment on above: Order Comment: Ezekiel ramirez Type: BLOOD SPECIMENOrdering Facility: [facility] Address: [address] [place] [address] Performed By: #### 2 4325-3, 16743-4 ####[facility] LABCLIA [id number] [employer] [facility] [id number] [address] [place] Calcium [Mass/Vol] 8.4 mg/dL Low 8.5-10.2 [facility] Comment on above: Order Comment: Speci men Type: BLOOD SPECIMENOrdering Facility: [facility] Address: [address] [place] [address] Performed By: #### 2 4325-3, 65553-7 ####[facility] LABCLIA [id number] [facility] [address] [place] [address] [place] Chloride [Moles/Vol] 99 mmol/L Normal 98-107 [facility] Comment on above: Order Comment: Speci men Type: BLOOD SPECIMENOrdering Facility: [facility] Address: [address] [place] [address] Performed By: #### 2 4325-3, 22075-1 ####[facility] LABCLIA [id number] [facility]OSPITALK [address] [place] [address] [place] CO2 [Moles/Vol] 14 mmol/L Low 22-30 [facility] Comment on above: Order Comment: Speci men Type: BLOOD SPECIMENOrdering Facility: [facility] Address: [address] [place] [address] Performed By: #### 2 4325-3, 25353-4 ####[facility] LABCLIA [id number] [facility] [id number], [place] [address] [place] Creatinine [Mass/Vol] 0.80 mg/dL Normal 0.73-1.[address] [facility] Comment on above: Order Comment: Speci men Type: BLOOD SPECIMENOrdering Facility: [facility] Address: [address] [place] [address] Performed By: #### 2 4325-3, 06354-9 ####[facility] LABCLIA [id number] [facility] [address] [place] Creatinine and Glomerular filtration rate.predicted panel (S/P/Bld) 103 mL/min/1.73m??? Normal >=60 [facility] Comment on above: Order Comment: Ezekiel ramirez Type: BLOOD SPECIMENOrdering Facility: [facility] Address: [address] [place] [address] Result Comment: Patric mated Glomerular Filtration Rate [...] actual GFR. Performed By: #### 2 4325-3, 46949-2 ####[facility] LABCLIA [id number] [place] [address] [place] Glucose [Mass/Vol] 272 mg/dL High 74-99 [facility] Comment on above: Order Comment: Ezekiel ramirez Type: BLOOD SPECIMENOrdering Facility: [facility] Address: [address] [place] [address] Result Comment: The [place] [employer] (ADA) provides guidance for cutoff [...] Standards of Medical Care in Diabetes 2016, [place] [employer]. Diabetes Care. 2016.39(Suppl 1). Performed By: #### 2 4325-3, 93988-6 ####[facility] LABIA [id number] [place] [id number] [place] Phosphate [Mass/Vol] 2.2 mg/dL Low 2.7-4.8 [facility] Comment on above: Order Comment: Speci men Type: BLOOD SPECIMENOrdering Facility: [facility] Address: [address] [place] [address] Performed By: #### 2 4325-3, 71863-6 ####[facility] LABCLIA [id number] [facility] [address] [place] Potassium [Moles/Vol] 3.8 mmol/L Normal 3.7-5.[address] [facility] Comment on above: Order Comment: Speci men Type: BLOOD SPECIMENOrdering Facility: [facility] Address: [address] [place] [address] Performed By: #### 2 4325-3, 63100-7 ####[facility] LABCLIA [id number] [place] [address] [place] Sodium [Moles/Vol] 128 mmol/L Low 136-144 [facility] Comment on above: Order Comment: Speci men Type: BLOOD SPECIMENOrdering Facility: [facility] Address: [address] [place] [address] Performed By: #### 2 4325-3, 48700-5 ####[facility] LABCLIA [id number] [place] [address] [place] Urea nitrogen [Mass/Vol] 11 mg/dL Normal 9-24 [facility] Comment on above: Order Comment: Speci men Type: BLOOD SPECIMENOrdering Facility: [facility] Address: [address] [place] [address] Performed By: #### 2 4325-3, 59903-9 ####[facility] LABCLIA [id number] [place] [id number] [place] SEPSIS LACTATEon 11-15-2024 Lactate [Moles/Vol] 3.2 mmol/L High <=2.0 [facility] Comment on above: Order Comment: Speci men Type: BLOOD SPECIMENOrdering Facility: [facility] Address: [address] [place] [address] Performed By: #### S LACT ####[facility] LABCLIA [id number] [place] [address] [place] SOCIAL WORKon 11-15-2024 SOCIAL WORK Normal [facility] THERAPY NTon 11-15-2024 THERAPY NT Normal [facility] THERAPY NT Normal [facility] TYPE + SCREENon 11-15-2024 ABO O Normal [facility] Comment on above: Order Comment: Speci men Type: BLOOD SPECIMENOrdering Facility: [facility] Address: [address] [place] [address] Performed By: #### T SCR ####[facility] BLO[facility] BANKCLIA [id number] [place] [address] [place] Rh Nom (Bld) Positive Normal [facility] Comment on above: Order Comment: Speci men Type: BLOOD SPECIMENOrdering Facility: [facility] Address: [address] [place] [address] Performed By: #### T SCR ####CC [facility] BLOOD BANKIA [id number] [place] [address] [place] TYPE AND SCREEN EXPIRATION 11/18/2024 23:59 Normal [facility] Comment on above: Order Comment: Speci men Type: BLOOD SPECIMENOrdering Facility: [facility] Address: [address] [place] [address] Performed By: #### T SCR ####CC [facility] BLOOD BANKCLIA [id number] [place] [address] [place] US ASCITES SURVEYon 11-16-19 US ASCITES SURVEY Normal [facility] Basic metabolic 2000 panelon 11-14-2024 Anion gap [Moles/Vol] 11 mmol/L Normal 8-[address] [facility] Comment on above: Order Comment: Speci men Type: BLOOD SPECIMENOrdering Facility: [facility] Address: [address] [place] [address] Performed By: #### 2 4321-2, 86864-0, 277-1, ####[facility] LABIA [id number] [address] [address] [place] Calcium [Mass/Vol] 8.9 mg/dL Normal 8.5-10.2 [facility] Comment on above: Order Comment: Speci men Type: BLOOD SPECIMENOrdering Facility: [facility] Address: [address] [place], [place] [address] Performed By: #### 2 4321-2, 25359-6, 277-1, ####[facility] LABIA [id number] [place] [id number] [place] Chloride [Moles/Vol] 99 mmol/L Normal 98-107 [facility] Comment on above: Order Comment: Speci men Type: BLOOD SPECIMENOrdering Facility: [facility] Address: [address] [place], [place] [address] Performed By: #### 2 4321-2, 78414-8, 277-, ####[facility] LABIA [id number] [place] [id number] [place] CO2 [Moles/Vol] 17 mmol/L Low 22-30 [facility] Comment on above: Order Comment: Speci men Type: BLOOD SPECIMENOrdering Facility: [facility] Address: [address] [place] [address] Performed By: #### 2 4321-2, 55072-1, 277-1, ####[facility] LABIA [id number] [address] [address] [place] Creatinine [Mass/Vol] 0.89 mg/dL Normal 0.73-1.[address] [facility] Comment on above: Order Comment: Speci men Type: BLOOD SPECIMENOrdering Facility: [facility] Address: [address] [place] [address] Performed By: #### 2 4321-2, 14791-0, 2777-1, 29000-9 ####[facility] LABIA [id number] [place] [address] [place] Creatinine and Glomerular filtration rate.predicted panel (S/P/Bld) 99 mL/min/1.73m??? Normal >=60 [facility] Comment on above: Order Comment: Ezekiel ramirez Type: BLOOD SPECIMENOrdering Facility: [facility] Address: [address] [place] [address] Result Comment: Patric mated Glomerular Filtration Rate [...] actual GFR. Performed By: #### 2 4321-2, 66612-0, 2777-1, 31888-9 ####[facility] LABIA [id number] [place] [id number] [place] Glucose [Mass/Vol] 250 mg/dL High 74-99 [facility] Comment on above: Order Comment: Ezekiel ramirez Type: BLOOD SPECIMENOrdering Facility: [facility] Address: [address] [place] [address] Result Comment: The [place] [employer] (ADA) provides guidance for cutoff [...] Standards of Medical Care in Diabetes 2016, [place] [employer]. Diabetes Care. 2016.39(Suppl 1). Performed By: #### 2 4321-2, 07220-0, 2776-, ####[facility] LABIA [id number] [address] [address] [place] Potassium [Moles/Vol] 3.6 mmol/L Low 3.7-5.[address] [facility] Comment on above: Order Comment: Speci men Type: BLOOD SPECIMENOrdering Facility: [facility] Address: [address] [place] [address] Performed By: #### 2 4321-2, 43396-8, 2776-, ####[facility] [id number] [place] [address] [place] Sodium [Moles/Vol] 127 mmol/L Low 136-144 [facility] Comment on above: Order Comment: Speci men Type: BLOOD SPECIMENOrdering Facility: [facility] Address: [address] [place] [address] Performed By: #### 2 4321-2, 79441-8, 2776-08, ####[facility] [id number] [place] [id number] [place] Urea nitrogen [Mass/Vol] 14 mg/dL Normal 9-24 [facility] Comment on above: Order Comment: Speci men Type: BLOOD SPECIMENOrdering Facility: [facility] Address: [address] [place] [address] Performed By: #### 2 4321-2, 84219-0, 2776-08, ####[facility] LABIA [id number] [place] [id number] [place] CBC W Auto Differential pane l (Bld)on 11-14-2024 Basophils (Bld) [#/Vol] 0.04 10*3/uL Normal <0.11 [facility] Comment on above: Order Comment: Speci men Type: BLOOD SPECIMENOrdering Facility: [facility] Address: [address] [place] [address] Performed By: #### 5 7021-8 ####[facility] LABCLIA [id number] [address], [place] [address] [place] Basophils/100 WBC (Bld) 0.7 % Normal [facility] Comment on above: Order Comment: Speci men Type: BLOOD SPECIMENOrdering Facility: [facility] Address: [address] [place] [address] Performed By: #### 5 7021-8 ####[facility] LABCLIA [id number] [place] [address] [place] Differential cell count method Nom (Bld) Auto Normal [facility] Comment on above: Order Comment: Speci men Type: BLOOD SPECIMENOrdering Facility: [facility] Address: [address] [place] [address] Performed By: #### 5 7021-8 ####[facility] LABCLIA [id number] [place] [address] [place] Eosinophils (Bld) [#/Vol] 0.23 10*3/uL Normal <0.46 [facility] Comment on above: Order Comment: Speci men Type: BLOOD SPECIMENOrdering Facility: [facility] Address: [address] [place] [address] Performed By: #### 5 7021-8 ####[facility] LABCLIA [id number] [address] [place] Eosinophils/100 WBC (Bld) 4.1 % Normal [facility] Comment on above: Order Comment: Speci men Type: BLOOD SPECIMENOrdering Facility: [facility] Address: [address] [place] [address] Performed By: #### 5 7021-8 ####[facility] LABCLIA [id number] [place] [address] [place] Erythrocyte distribution width (RBC) [Ratio] 16.3 % High 11.5-15.0 [facility] Comment on above: Order Comment: Speci men Type: BLOOD SPECIMENOrdering Facility: [facility] Address: [address] [place] [address] Performed By: #### 5 7021-8 ####[facility] LABIA [id number] [place] [address] [place] Hematocrit (Bld) [Volume fraction] 22.7 % Low 39.0-51.0 [facility] Comment on above: Order Comment: Speci men Type: BLOOD SPECIMENOrdering Facility: [facility] Address: [address] [place] [address] Performed By: #### 5 7021-8 ####[facility] LABIA [id number] [place] [address] [place] Hemoglobin (Bld) [Mass/Vol] 7.9 g/dL Low 13.0-17.0 [facility] Comment on above: Order Comment: Speci men Type: BLOOD SPECIMENOrdering Facility: [facility] Address: [address] [place] [address] Performed By: #### 5 7021-8 ####[facility] LABIA [id number] [place] [address] [place] Immature granulocytes (Bld) [#/Vol] 0.04 10*3/uL Normal <0.10 [facility] Comment on above: Order Comment: Speci men Type: BLOOD SPECIMENOrdering Facility: [facility] Address: [address] [place] [address] Performed By: #### 5 7021-8 ####[facility] LABCLIA [id number] [place] [address] [place] Immature granulocytes/100 WBC (Bld) 0.7 % Normal [facility] Comment on above: Order Comment: Speci men Type: BLOOD SPECIMENOrdering Facility: [facility] Address: [address] [place] [address] Performed By: #### 5 7021-8 ####[facility] LABCLIA [id number] [place] [address] [place] Lymphocytes (Bld) [#/Vol] 0.72 10*3/uL Low 1.00-4.00 [facility] Comment on above: Order Comment: Speci men Type: BLOOD SPECIMENOrdering Facility: [facility] Address: [address] [place] [address] Performed By: #### 5 7021-8 ####[facility] LABCLIA [id number] [place] [address] [place] Lymphocytes/100 WBC (Bld) 12.8 % Normal [facility] Comment on above: Order Comment: Speci men Type: BLOOD SPECIMENOrdering Facility: [facility] Address: [address] [place] [address] Performed By: #### 5 7021-8 ####[facility] LABCLIA [id number] [place] [address] [place] MCH (RBC) [Entitic mass] 31.7 pg Normal 26.0-34.0 [facility] Comment on above: Order Comment: Speci men Type: BLOOD SPECIMENOrdering Facility: [facility] Address: [address] [place] [address] Performed By: #### 5 7021-8 ####[facility] LABCLIA [id number] [place] [address] [place] MCHC (RBC) [Mass/Vol] 34.8 g/dL Normal 30.5-36.[address] [facility] Comment on above: Order Comment: Speci men Type: BLOOD SPECIMENOrdering Facility: [facility] Address: [address] [place] [address] Performed By: #### 5 7021-8 ####[facility] LABCLIA [id number] [place] [address] [place] MCV (RBC) [Entitic vol] 91.2 fL Normal 80.0-100.0 [facility] Comment on above: Order Comment: Speci men Type: BLOOD SPECIMENOrdering Facility: [facility] Address: [address] [place] [address] Performed By: #### 5 7021-8 ####[facility] LABCLIA [id number] [place] [address] [place] Monocytes (Bld) [#/Vol] 0.68 10*3/uL Normal <0.87 [facility] Comment on above: Order Comment: Speci men Type: BLOOD SPECIMENOrdering Facility: [facility] Address: [address] [place] [address] Performed By: #### 5 7021-8 ####[facility] LABCLIA [id number] [place] [address] [place] Monocytes/100 WBC (Bld) 12.1 % Normal [facility] Comment on above: Order Comment: Speci men Type: BLOOD SPECIMENOrdering Facility: [facility] Address: [address] [place] [address] Performed By: #### 5 7021-8 ####[facility] LABCLIA [id number] [place] [address] [place] Neutrophils (Bld) [#/Vol] 3.92 10*3/uL Normal 1.45-7.50 [facility] Comment on above: Order Comment: Speci men Type: BLOOD SPECIMENOrdering Facility: [facility] Address: [address] [place] [address] Performed By: #### 5 7021-8 ####[facility] LABCLIA [id number] [place] [address] [place] Neutrophils/100 WBC (Bld) 69.6 % Normal [facility] Comment on above: Order Comment: Speci men Type: BLOOD SPECIMENOrdering Facility: [facility] Address: [address] [place] [address] Performed By: #### 5 7021-8 ####[facility] LABIA [id number] [place] [id number] [place] Nucleated RBC (Bld) [#/Vol] 10*3/uL Normal <0.01 [facility] Comment on above: Order Comment: Speci men Type: BLOOD SPECIMENOrdering Facility: [facility] Address: [address] [place] [address] Performed By: #### 5 7021-8 ####[facility] LABIA [id number] [place] [address] [place] Nucleated RBC/100 WBC (Bld) [Ratio] 0.0 /100 WBC Normal [facility] Comment on above: Order Comment: Speci men Type: BLOOD SPECIMENOrdering Facility: [facility] Address: [address] [place] [address] Performed By: #### 5 7021-8 ####[facility] LABIA [id number] [place] [address] [place] Platelet mean volume (Bld) [Entitic vol] 12.1 fL Normal 9.0-12.7 [facility] Comment on above: Order Comment: Speci men Type: BLOOD SPECIMENOrdering Facility: [facility] Address: [address] [place] [address] Performed By: #### 5 7021-8 ####[facility] LABIA [id number] [place] [id number] [place] Platelets (Bld) [#/Vol] 43 10*3/uL Low 150-400 [facility] Comment on above: Order Comment: Speci men Type: BLOOD SPECIMENOrdering Facility: [facility] Address: [address] [place] [address] Result Comment: Resu lts checked and verified.No clot detected. Performed By: #### 5 7021-8 ####[facility] LABCLIA [id number] [place] [address] [place] RBC (Bld) [#/Vol] 2.49 10*6/uL Low 4.20-6.00 [facility] Comment on above: Order Comment: Speci men Type: BLOOD SPECIMENOrdering Facility: [facility] Address: [address] [place] [address] Performed By: #### 5 7021-8 ####[facility] LABIA [id number] [place] [address] [place] WBC (Bld) [#/Vol] 5.63 10*3/uL Normal 3.70-11.00 [facility] Comment on above: Order Comment: Speci men Type: BLOOD SPECIMENOrdering Facility: [facility] Address: [address] [place] [address] Performed By: #### 5 7021-8 ####[facility] LABIA [id number] [place] [address] [place] Fibrinogen PPP-mCncon 2024 Fibrinogen Coag (PPP) [Mass/Vol] 119 mg/dL Low 200-400 [facility] Comment on above: Order Comment: Speci men Type: BLOOD SPECIMENOrdering Facility: [facility] Address: [address] [place] [address] Performed By: #### 3 255-7, 95770-7 ####[facility] [id number] [place] [id number] [place] Hepatic function 2000 panelo n 11-14-2024 Albumin [Mass/Vol] 2.8 g/dL Low 3.9-4.9 [facility] Comment on above: Order Comment: Speci men Type: BLOOD SPECIMENOrdering Facility: [facility] Address: [address] [place] [address] Performed By: #### 2 4321-2, 39796-3, 277-1, ####[facility] LABCLIA [id number] [address] [address] [place] ALP [Catalytic activity/Vol] 248 U/L High 38-113 [facility] Comment on above: Order Comment: Speci men Type: BLOOD SPECIMENOrdering Facility: [facility] Address: [address] [place] [address] Performed By: #### 2 4321-2, 22519-1, 277-1, ####[facility] LABIA [id number] [place] [id number] [place] ALT [Catalytic activity/Vol] 29 U/L Normal 10-54 [facility] Comment on above: Order Comment: Speci men Type: BLOOD SPECIMENOrdering Facility: [facility] Address: [address] [place] [address] Performed By: #### 2 4321-2, 94273-2, 2776-, ####[facility] LABIA [id number] [address] [address] [place] AST [Catalytic activity/Vol] 62 U/L High 14-40 [facility] Comment on above: Order Comment: Speci men Type: BLOOD SPECIMENOrdering Facility: [facility] Address: [address] [place] [address] Performed By: #### 2 4321-2, 60179-3, 277-1, ####[facility] LABIA [id number] [address] [address] [place] Bilirubin [Mass/Vol] 1.7 mg/dL High 0.2-1.3 [facility] Comment on above: Order Comment: Speci men Type: BLOOD SPECIMENOrdering Facility: [facility] Address: [address] [place] [address] Performed By: #### 2 4321-2, 93004-5, 2777-1, ####[facility] LABCLIA [id number] [place] [id number] [place] Bilirubin.conjugated [Mass/Vol] 1.0 mg/dL High <0.3 [facility] Comment on above: Order Comment: Speci men Type: BLOOD SPECIMENOrdering Facility: [facility] Address: [address] [place] [address] Performed By: #### 2 4321-2, 40164-6, 277-1, ####[facility] LABIA [id number] [place] [address] [place] Protein [Mass/Vol] 5.4 g/dL Low 6.3-8.0 [facility] Comment on above: Order Comment: Speci men Type: BLOOD SPECIMENOrdering Facility: [facility] Address: [address] [place] [address] Performed By: #### 2 4321-2, 57699-0, 27702-01, ####[facility] LABIA [id number] [place] [id number] [place] Magnesium SerPl-mCncon 11-14 Magnesium [Mass/Vol] 1.6 mg/dL Low 1.7-2.3 [facility] Comment on above: Order Comment: Speci men Type: BLOOD SPECIMENOrdering Facility: [facility] Address: [address] [place] [address] Performed By: #### 2 4321-2, 49320-5, 27702-01, ####[facility] LABIA [id number] [place] [id number] [place] PT panel Coag (PPP)on 2024 INR Coag (PPP) [Relative time] 1.8 {INR} High 0.9-1.3 [facility] Comment on above: Order Comment: Speci men Type: BLOOD SPECIMENOrdering Facility: [facility] Address: [address] [place] [address] Result Comment: Sarah min K Antagonist (VKA) Therapeutic Range: INR 2 to 3 (Target INR of 2.5)Note: For patients treated with VKA drugs, such as warfarin, the [place] [employer] 2012 Guideline recommends [...] al. Chest 2012, 141:7S-47SNishbethel RA, et al. [facility] 2017, 70: 252-289 Performed By: #### 3 255-7, 09109-2 ####[facility] [id number] [place] [address] [place] PT Coag (PPP) [Time] 19.2 s High 9.7-13.0 [facility] Comment on above: Order Comment: Ezekiel ramirez Type: BLOOD SPECIMENOrdering Facility: [facility] Address: [address] [place] [address] Performed By: #### 3 255-7, 73998-8 ####[facility] [id number] [place] [id number] [place] Phosphate SerPl-mCncon 11-14 Phosphate [Mass/Vol] 1.9 mg/dL Low 2.7-4.8 [facility] Comment on above: Order Comment: Ezekiel ramirez Type: BLOOD SPECIMENOrdering Facility: [facility] Address: [address] [place] [address] Performed By: #### 2 4321-2, 53252-6, 2777-1, 38789-9 ####[facility] LABCLIA [id number] [place] [address] [place] URINALYSIS, REFLEX MICROSCOP ICon 11-14-2024 Bacteria LM.HPF (Urine sed) [#/Area] Negative Normal Negative [facility] Comment on above: Order Comment: Speci men Type: URINE SPECIMENOrdering Facility: [facility] Address: [address] [place] [address] Performed By: #### L [id number] ####[facility] LABIA [id number] [place] [address] [place] Bilirubin Ql (U) 1+ Abnormal Negative [facility] Comment on above: Order Comment: Speci men Type: URINE SPECIMENOrdering Facility: [facility] Address: [address] [place] [address] Result Comment: Sugg est correlation with clinical findings and serum bilirubin if clinically indicated. Performed By: #### L [id number] ####[facility] LABIA [id number] [place] [address] [place] Clarity (Unsp spec) Cloudy Abnormal Clear [facility] Comment on above: Order Comment: Speci men Type: URINE SPECIMENOrdering Facility: [facility] Address: [address] [place] [address] Performed By: #### L [id number] ####[facility] LABCLIA [id number] [place] [id number] [place] Color (U) Latimer Abnormal Yellow [facility] Comment on above: Order Comment: Speci men Type: URINE SPECIMENOrdering Facility: [facility] Address: [address] [place] [address] Performed By: #### L [id number] ####[facility] LABCLIA [id number] [place] [id number] [place] Epithelial cells LM.HPF (Urine sed) [#/Area] None Seen Normal [facility] Comment on above: Order Comment: Speci men Type: URINE SPECIMENOrdering Facility: [facility] Address: [address] [place] [address] Performed By: #### L [id number] ####[facility] LABCLIA [id number] [place] [address] [place] Glucose Test strip (U) [Mass/Vol] Negative Normal Negative [facility] Comment on above: Order Comment: Speci men Type: URINE SPECIMENOrdering Facility: [facility] Address: [address] [place] [address] Performed By: #### L [id number] ####[facility] LABCLIA [id number] [place] [address] [place] Hemoglobin Ql (U) 3+ Abnormal Negative [facility] Comment on above: Order Comment: Speci men Type: URINE SPECIMENOrdering Facility: [facility] Address: [address] [place] [address] Performed By: #### [id number] ####[facility] LABCLIA [id number] [place] [address] [place] Hyaline casts (Urine sed) [#/Area] 0 /[LPF] Normal 0 /LPF [facility] Comment on above: Order Comment: Speci men Type: URINE SPECIMENOrdering Facility: [facility] Address: [address] [place] [address] Performed By: #### [id number] ####[facility] LABCLIA [id number] [address] [place] Ketones Ql (U) Negative Normal Negative [facility] Comment on above: Order Comment: Speci men Type: URINE SPECIMENOrdering Facility: [facility] [facility] Address: [address] [place] [address] Performed By: #### L [id number] ####[facility] LABCLIA [id number] [address], [place] [address] [place] Leukocyte esterase Test strip Ql (U) 3+ Abnormal Negative [facility] Comment on above: Order Comment: Speci men Type: URINE SPECIMENOrdering Facility: [facility] Address: [address] [place] [address] Performed By: #### L [id number] ####[facility] LABCLIA [id number] [place] [address] [place] Nitrite Ql (U) Negative Normal Negative [facility] Comment on above: Order Comment: Speci men Type: URINE SPECIMENOrdering Facility: [facility] Address: [address] [place] [address] Performed By: #### L [id number] ####[facility] LABCLIA [id number] [place] [address] [place] pH (U) 6.0 [pH] Normal <8.5 [facility] Comment on above: Order Comment: Speci men Type: URINE SPECIMENOrdering Facility: [facility] Address: [address] [place] [address] Performed By: #### L [id number] ####[facility] LABCLIA [id number] [place] [address] [place] Protein (U) [Mass/Vol] 2+ Abnormal Negative [facility] Comment on above: Order Comment: Speci men Type: URINE SPECIMENOrdering Facility: [facility] Address: [address] [place] [address] Performed By: #### L [id number] ####[facility] LABCLIA [id number] [place] [address] [place] RBC LM.HPF (Urine sed) [#/Area] /[HPF] Abnormal 0-2 /HPF [facility] Comment on above: Order Comment: Speci men Type: URINE SPECIMENOrdering Facility: [facility] Address: [address] [place] [address] Performed By: #### L [id number] ####[facility] LABIA [id number] [place] [address] [place] Specific gravity (U) [Rel density] 1.017 Normal 1.005-1.030 [facility] Comment on above: Order Comment: Speci men Type: URINE SPECIMENOrdering Facility: [facility] Address: [address] [place] [address] Performed By: #### L [id number] ####[facility] LABIA [id number] [place] [address] [place] Urobilinogen Ql (U) 0.2 EU/dL Normal 0.2-1.0 EU/dL [facility] Comment on above: Order Comment: Speci men Type: URINE SPECIMENOrdering Facility: [facility] Address: [address] [place] [address] Performed By: #### L [id number] ####[facility] LABIA [id number] [place] [address] [place] WBC LM.HPF (Urine sed) [#/Area] /[HPF] Abnormal 0-5 /HPF [facility] Comment on above: Order Comment: Speci men Type: URINE SPECIMENOrdering Facility: [facility] Address: [address] [place] [address] Performed By: #### L [id number] ####[facility] LABIA [id number] [place] [address] [place] Yeast.budding LM.HPF (Urine sed) [#/Area] Present Abnormal None Seen [facility] Comment on above: Order Comment: Speci men Type: URINE SPECIMENOrdering Facility: [facility] Address: [address] [place] [address] Performed By: #### L [id number] ####[facility] LABIA [id number] [place] [address] [place] 25(OH)D3 SerPl-mCncon 2024 25-hydroxyvitamin D3 [Mass/Vol] 16.2 ng/mL Low 31.0-80.0 [facility] Comment on above: Order Comment: Speci men Type: BLOOD SPECIMENOrdering Facility: [facility] Address: [address] [place] [address] Performed By: #### 7 852-7, MEASLG, VZVG2, 1988-10 ####[facility] LABIA [id number] [place] [address] [place] A-Tocopherol Vit E [facility]-mCn con 11-13-2024 Alpha tocopherol [Mass/Vol] 3.3 mg/L Low 6.0-23.0 [facility] Comment on above: Order Comment: Speci men Type: BLOOD SPECIMENOrdering Facility: [facility] Address: [address] [place] [address] Performed By: #### 2 923-1, 1823-4 ####[facility] LABIA [id number] [place] [address] [place] ALPHA-1 ANTITRYPSIN GENOon 0 11-13-2024 HA1AT REVIEWED BY Michelle Anderson [facility] Comment on above: Order Comment: Speci men Type: BLOOD SPECIMENOrdering Facility: [facility] Address: [address] [place] [address] Result Comment: Alph a-1 Antitrypsin GenotypingLaboratory Accession Number: [id number]:No Variant Detected in SERPINA1 (PI*MM)Interpretation:DNA testing indicates [...] the two mostcommon pathogenic variants: S (c.863A>T, p.Zws797Tta, g.[id number]), Z(c.1096G>A, p.Uka042Wlf, g.37390718), and the rarer variants: F(c.739C>T, p.Zfv056Bnb, g.08363484), I (c.187C>T, p.Hnt81Eeu,g.17046950).Limitations:This Laboratory Developed Test (LDT) is designed to [...] was developed and its performance characteristics determinedby [facility]'s Path[facility] and [facility] Medicine Department. Ithas not been cleared or approved by the FDA. [facility] is regulated under CLIAas certified to perform high-complexity testing. This test is used forclinical purposes. It should not be regarded as investigational or forresearch.Test performed at [facility], [address], [place], [place]. [place] Number: [id number]:1) Kait HIRSCH, Samir G, Essence ML, Ilan M, Kai CE, K,Jadyn DK, Princess SL, Suman JM, Ivania MARIE, Haider Guillory, Renée Oliveira.The Diagnosis and Management of Alpha-1 Antritrypsin Deficiency inthe Adult. Chronic Obstr Pulm Dis. 2016 Jan 07;3:668-682.2) Renee JA, Linsey ON, Rachele ER, Khushi DG. a1-Antitrypsinphenotypes and associated serum protein concentrations in a largeclinical population. Chest.2012;143(4):1000-8.3) Elmo A, Toña NA, Brad CR, Jennifer FJ, Salvador SJ, Nicole. Molecular characterisation of three rqril-3-fgylgcyzdhm deficiencyvariants: proteinase inhibitor (Pi) nullcardiff (Dmv558----Vbj);PiMmalton (Mgs61----muompmhf) and PiI (Tiy11----Npq). Hum Trisha. 1988Dec;84(1):55-8.4) Flor WHITFIELD and Kait HIRSCH. Clinical practice.Alpha1-antitrypsin deficiency. N Engl J Med. 2008;360(01)2329-96.5) Margot NJ, Konicolle F, Prakash HIRSCH. The significance of the F variantof xhzxw-6-ohafbqdgjtp and unique case report of a PiFF homozygote.[facility] Pulm Med. 2014 Mar 10;14:132.6) Ivania MARIE, Elena SHETTY, and Jaziel Carlson. Alpha-1 AntitrypsinDeficiency. 2005May 30 [Updated 2017 August 22]. In: Juanito HIRSCH, Nemesio Jimenez TO, et al., editors. GeneReviews [Internet]. [place] ([place]):[facility], [place]; 8409-6939. Available from:http://www.ncbi.nlm.nih.gov/books/NPS6802/Interpretation performed at remote location (R0A1) by Fifi España MD Performed By: #### H A1AT ####[facility] LIMSCLIA [id number] [place] [address] [place] ANES POSTPROC EVALon 025 ANES POSTPROC EVAL Normal [facility] ANES PRE-OPon 11-13-2024 ANES PRE-OP Normal [facility] Alpha tocopherol [Mass/Vol]o n 11-13-2024 Beta+gamma tocopherol [Mass/Vol] 0.6 mg/L Normal 0.3-3.2 [facility] Comment on above: Order Comment: Speci men Type: BLOOD SPECIMENOrdering Facility: [facility] Address: [address] [place] [address] Result Comment: This test was developed, and its performance characteristics determined by the [facility] Department of Pathology and Laboratory Medicine. It has not been cleared or approved by the FDA. The [facility] Department of Pathology and Laboratory Medicine is regulated under CLIA as qualified to perform high-complexity testing. This test is used for clinical purposes. It should not be regarded as investigational or for research. Performed By: #### 2 923-1, 1823-4 ####[facility] LABCLIA [id number] [place] [address] [place] Basic metabolic 2000 panelon 11-13-2024 Anion gap [Moles/Vol] 9 mmol/L Normal 8-[address] [facility] Comment on above: Order Comment: Speci men Type: BLOOD SPECIMENOrdering Facility: [facility] Address: [address] [place] [address] Performed By: #### 2 4321-2, 70265-1, 00092-9, 56938-1 ####[facility] LABCLIA [id number] [place] [address] [place] Calcium [Mass/Vol] 9.1 mg/dL Normal 8.5-10.2 [facility] Comment on above: Order Comment: Speci men Type: BLOOD SPECIMENOrdering Facility: [facility] Address: [address] [place] [address] Performed By: #### 2 4321-2, 14989-9, 85407-8, 76141-8 ####[facility] LABCLIA [id number] [place] [address] [place] Chloride [Moles/Vol] 99 mmol/L Normal 98-107 [facility] Comment on above: Order Comment: Speci men Type: BLOOD SPECIMENOrdering Facility: [facility] Address: [address] [place] [address] Performed By: #### 2 4321-2, 93338-6, 33899-3, 27325-3 ####[facility] LABCLIA [id number] [place] [address] [place] CO2 [Moles/Vol] 16 mmol/L Low 22-30 [facility] Comment on above: Order Comment: Speci men Type: BLOOD SPECIMENOrdering Facility: [facility] Address: [address] [place] [address] Performed By: #### 2 4321-2, 33788-4, 95364-5, 97596-8 ####[facility] LABCLIA [id number] [place] [address] [place] Creatinine [Mass/Vol] 1.10 mg/dL Normal 0.73-1.[address] [facility] Comment on above: Order Comment: Speci men Type: BLOOD SPECIMENOrdering Facility: [facility] Address: [address] [place] [address] Performed By: #### 2 4321-2, 51162-7, 98233-5, 96367-6 ####[facility] LABCLIA [id number] [place] [address] [place] Creatinine and Glomerular filtration rate.predicted panel (S/P/Bld) 78 mL/min/1.73m??? Normal >=60 [facility] Comment on above: Order Comment: Ezekiel ramirez Type: BLOOD SPECIMENOrdering Facility: [facility] Address: [address] [place] [address] Result Comment: Patric mated Glomerular Filtration Rate [...] actual GFR. Performed By: #### 2 4321-2, 72764-2, 08765-6, 23569-5 ####[facility] LABIA [id number] [place] [address] [place] Glucose [Mass/Vol] 278 mg/dL High 74-99 [facility] Comment on above: Order Comment: Ezekiel ramirez Type: BLOOD SPECIMENOrdering Facility: [facility] Address: [address] [place] [address] Result Comment: The [place] [employer] Association (ADA) provides guidance for cutoff [...] Standards of Medical Care in Diabetes 2016, [place] [employer]. Diabetes Care. 2016.39(Suppl 1). Performed By: #### 2 4321-2, 60341-4, 78957-5, 51714-3 ####[facility] LABIA [id number] [address] [address] [place] Potassium [Moles/Vol] 4.1 mmol/L Normal 3.7-5.[address] [facility] Comment on above: Order Comment: Speci men Type: BLOOD SPECIMENOrdering Facility: [facility] Address: [address] [place] [address] Performed By: #### 2 4321-2, 62098-7, 82639-4, 51297-6 ####[facility] LABCLIA [id number] [place] [address] [place] Sodium [Moles/Vol] 124 mmol/L Low 136-144 [facility] Comment on above: Order Comment: Speci men Type: BLOOD SPECIMENOrdering Facility: [facility] Address: [address] [place] [address] Performed By: #### 2 4321-2, 12114-2, 27722-4, 21815-4 ####[facility] LABCLIA [id number] [place] [address] [place] Urea nitrogen [Mass/Vol] 20 mg/dL Normal 9-24 [facility] Comment on above: Order Comment: Speci men Type: BLOOD SPECIMENOrdering Facility: [facility] Address: [address] [place] [address] Performed By: #### 2 4321-2, 37356-3, 30487-5, 60450-0 ####[facility] LABCLIA [id number] [place] [address] [place] CBC W Auto Differential pane l (Bld)on 11-13-2024 Basophils (Bld) [#/Vol] 10*3/uL Normal <0.11 [facility] Comment on above: Order Comment: Speci men Type: BLOOD SPECIMENOrdering Facility: [facility] Address: [address] [place] [address] Performed By: #### 5 7021-8 ####[facility] LABCLIA [id number] [place] [address] [place] Basophils/100 WBC (Bld) 0.4 % Normal [facility] Comment on above: Order Comment: Speci men Type: BLOOD SPECIMENOrdering Facility: [facility] Address: [address] [place] [address] Performed By: #### 5 7021-8 ####[facility] LABIA [id number] [place] [address] [place] Differential cell count method Nom (Bld) Auto Normal [facility] Comment on above: Order Comment: Speci men Type: BLOOD SPECIMENOrdering Facility: [facility] Address: [address] [place] [address] Performed By: #### 5 7021-8 ####[facility] LABCLIA [id number] [place] [address] [place] Eosinophils (Bld) [#/Vol] 0.18 10*3/uL Normal <0.46 [facility] Comment on above: Order Comment: Speci men Type: BLOOD SPECIMENOrdering Facility: [facility] Address: [address] [place] [address] Performed By: #### 5 7021-8 ####[facility] LABIA [id number] [place] [address] [place] Eosinophils/100 WBC (Bld) 3.3 % Normal [facility] Comment on above: Order Comment: Speci men Type: BLOOD SPECIMENOrdering Facility: [facility] Address: [address] [place] [address] Performed By: #### 5 7021-8 ####[facility] LABCLIA [id number] [place] [address] [place] Erythrocyte distribution width (RBC) [Ratio] 17.0 % High 11.5-15.0 [facility] Comment on above: Order Comment: Speci men Type: BLOOD SPECIMENOrdering Facility: [facility] Address: [address] [place] [address] Performed By: #### 5 7021-8 ####[facility] LABCLIA [id number] [place] [address] [place] Hematocrit (Bld) [Volume fraction] 21.6 % Low 39.0-51.0 [facility] Comment on above: Order Comment: Speci men Type: BLOOD SPECIMENOrdering Facility: [facility] Address: [address] [place] [address] Performed By: #### 5 7021-8 ####[facility] LABCLIA [id number] [place] [address] [place] Hemoglobin (Bld) [Mass/Vol] 7.4 g/dL Low 13.0-17.0 [facility] Comment on above: Order Comment: Speci men Type: BLOOD SPECIMENOrdering Facility: [facility] Address: [address] [place] [address] Performed By: #### 5 7021-8 ####[facility] LABCLIA [id number] [place] [address] [place] Immature granulocytes (Bld) [#/Vol] 0.04 10*3/uL Normal <0.10 [facility] Comment on above: Order Comment: Speci men Type: BLOOD SPECIMENOrdering Facility: [facility] Address: [address] [place] [address] Performed By: #### 5 7021-8 ####[facility] LABIA [id number] [place] [address] [place] Immature granulocytes/100 WBC (Bld) 0.7 % Normal [facility] Comment on above: Order Comment: Speci men Type: BLOOD SPECIMENOrdering Facility: [facility] Address: [address] [place] [address] Performed By: #### 5 7021-8 ####[facility] LABCLIA [id number] [place] [address] [place] Lymphocytes (Bld) [#/Vol] 0.64 10*3/uL Low 1.00-4.00 [facility] Comment on above: Order Comment: Speci men Type: BLOOD SPECIMENOrdering Facility: [facility] Address: [address] [place] [address] Performed By: #### 5 7021-8 ####[facility] LABCLIA [id number] [place] [id number] [place] Lymphocytes/100 WBC (Bld) 11.6 % Normal [facility] Comment on above: Order Comment: Speci men Type: BLOOD SPECIMENOrdering Facility: [facility] Address: [address] [place] [address] Performed By: #### 5 7021-8 ####[facility] LABCLIA [id number] [place] [address] [place] MCH (RBC) [Entitic mass] 31.8 pg Normal 26.0-34.0 [facility] Comment on above: Order Comment: Speci men Type: BLOOD SPECIMENOrdering Facility: [facility] Address: [address] [place] [address] Performed By: #### 5 7021-8 ####[facility] LABCLIA [id number] [place] [address] [place] MCHC (RBC) [Mass/Vol] 34.3 g/dL Normal 30.5-36.[address] [facility] Comment on above: Order Comment: Speci men Type: BLOOD SPECIMENOrdering Facility: [facility] Address: [address] [place] [address] Performed By: #### 5 7021-8 ####[facility] LABCLIA [id number] [place] [address] [place] MCV (RBC) [Entitic vol] 92.7 fL Normal 80.0-100.0 [facility] Comment on above: Order Comment: Speci men Type: BLOOD SPECIMENOrdering Facility: [facility] Address: [address] [place] [address] Performed By: #### 5 7021-8 ####[facility] LABCLIA [id number] [facility] [address] [place] [address] [place] Monocytes (Bld) [#/Vol] 0.68 10*3/uL Normal <0.87 [facility] Comment on above: Order Comment: Speci men Type: BLOOD SPECIMENOrdering Facility: [facility] Address: [address] [place] [address] Performed By: #### 5 7021-8 ####[facility] LABCLIA [id number] [facility] [address], [facility] [place] Monocytes/100 WBC (Bld) 12.4 % Normal [facility] Comment on above: Order Comment: Speci men Type: BLOOD SPECIMENOrdering Facility: [facility] Address: [address] [place] [address] Performed By: #### 5 7021-8 ####[facility] LABCLIA [id number] [place] [address] [place] Neutrophils (Bld) [#/Vol] 3.94 10*3/uL Normal 1.45-7.50 [facility] Comment on above: Order Comment: Speci men Type: BLOOD SPECIMENOrdering Facility: [facility] Address: [address] [place] [address] Performed By: #### 5 7021-8 ####[facility] LABCLIA [id number] [place] [address] [place] Neutrophils/100 WBC (Bld) 71.6 % Normal [facility] Comment on above: Order Comment: Speci men Type: BLOOD SPECIMENOrdering Facility: [facility] Address: [address] [place] [address] Performed By: #### 5 7021-8 ####[facility] LABCLIA [id number] [facility] [address] [address] [place] Nucleated RBC (Bld) [#/Vol] 10*3/uL Normal <0.01 [facility] Comment on above: Order Comment: Speci men Type: BLOOD SPECIMENOrdering Facility: [facility] Address: [address] [place] [address] Performed By: #### 5 7021-8 ####[facility] LABIA [id number] [place] [address] [place] Nucleated RBC/100 WBC (Bld) [Ratio] 0.0 /100 WBC Normal [facility] Comment on above: Order Comment: Speci men Type: BLOOD SPECIMENOrdering Facility: [facility] Address: [address] [place] [address] Performed By: #### 5 7021-8 ####[facility] [id number] [place] [address] [place] Platelet mean volume (Bld) [Entitic vol] 11.7 fL Normal 9.0-12.7 [facility] Comment on above: Order Comment: Speci men Type: BLOOD SPECIMENOrdering Facility: [facility] Address: [address] [place] [address] Performed By: #### 5 7021-8 ####[facility] [id number] [place] [address] [place] Platelets (Bld) [#/Vol] 38 10*3/uL Low 150-400 [facility] Comment on above: Order Comment: Speci men Type: BLOOD SPECIMENOrdering Facility: [facility] Address: [address] [place] [address] Result Comment: Resu lts checked and verified.No clot detected. Performed By: #### 5 7021-8 ####[facility] [id number] [place] [address] [place] RBC (Bld) [#/Vol] 2.33 10*6/uL Low 4.20-6.00 [facility] Comment on above: Order Comment: Speci men Type: BLOOD SPECIMENOrdering Facility: [facility] Address: [address] [place] [address] Performed By: #### 5 7021-8 ####[facility] LABCLIA [id number] [place] [address] [place] WBC (Bld) [#/Vol] 5.50 10*3/uL Normal 3.70-11.00 [facility] Comment on above: Order Comment: Speci men Type: BLOOD SPECIMENOrdering Facility: [facility] Address: [address] [place] [address] Performed By: #### 5 7021-8 ####[facility] LABCLIA [id number] [place] [address] [place] CMV IgG Qnon 11-13-2024 CMV IGG QUAL Negative Normal Negative [facility] Comment on above: Order Comment: Speci men Type: BLOOD SPECIMENOrdering Facility: [facility] Address: [address] [place] [address] Result Comment: No s erological evidence of past exposure to Cytomegalovirus. Cannot exclude recent infection if the specimen collected within 4-6 weeks after infection. Performed By: #### 7 852-7, MEASLG, VZVG2, 1988-10 ####[facility] LABCLIA [id number] [place] [address] [place] CMV IgG SerPl-aCncon 025 CMV IgG Qn 0.37 U/mL Normal [facility] Comment on above: Order Comment: Speci men Type: BLOOD SPECIMENOrdering Facility: [facility] Address: [address] [place] [address] Result Comment: The magnitude of the measured result is not indicative of the amount of antibody present.U/mL values are interpreted as follows:Negative <0.6Equivocal 0.6 to <0.70Positive >=0.70 Performed By: #### 7 852-7, MEASLG, VZVG2, 1988-10 ####[facility] LABCLIA [id number] [address] [place] CONSULT PROGon 11-13-2024 CONSULT PROG Normal [facility] CYTOLOGY NON-GYNon 5 AP DISCLAIMER Normal [facility] Comment on above: Order Comment: Speci james Type: FLUID SPECIMENOrdering Facility: [facility] Address: [address] [place] [address] Result Comment: Shellie pugh Developed Test (LDT) Disclaimer:Performance characteristics of immunohistochemical, immunofluorescent, and chromogenic in-situ hybridization tests have been determined by the performing laboratory within [facility]'s [facility] Pathology and Laboratory Medicine Department ([facility], [facility], [facility], [facility], [facility], [facility], or [facility]) in a manner consistent with [...] appropriately. Performed By: #### C YTONON ####[facility] LABCLIA [id number] [place] [address] [place] CASE REPORT Normal [facility] Comment on above: Order Comment: Speci men Type: FLUID SPECIMENOrdering Facility: [facility] Address: [address] [place] [address] Result Comment: [facility] Cytology Report Case: [id number] Provider: Deb Fox MD Collected: 11/13/2024 02:46 PMOrdering Location: [place] [address] Received: 11/15/2024 05:01 AMPathologist: Foster Newton MDSpecimen: Urine, Midstream Performed By: #### C YTONON ####[facility] LABCLIA [id number] [address] STATES OF [facility] CLINICAL HISTORY [place]ag[place] calculi, s/ p L sided stenting with hematuria Normal [facility] Comment on above: Order Comment: Speci men Type: FLUID SPECIMENOrdering Facility: [facility] Address: [address] [place] [address] Performed By: #### C YTONON ####[facility] LABCLIA [id number] [place] [address] [place] DIAGNOSIS COMMENT Normal [facility] Comment on above: Order Comment: Speci men Type: FLUID SPECIMENOrdering Facility: [facility] Address: [address] [place] [address] Result Comment: A. F ungal yeast forms are seen, morphologically consistent with Mary species. Clinical correlation is suggested. Performed By: #### C YTONON ####[facility] LABCLIA [id number] [address] [place] FINAL DIAGNOSIS Normal [facility] Comment on above: Order Comment: Speci men Type: FLUID SPECIMENOrdering Facility: [facility] Address: [address] [place] [address] Result Comment: A - Urine, Voided: Negative for high-grade urothelial carcinoma. Abundant acute inflammation (see comment). at 1141 EDT Performed By: #### C YTONON ####[facility] LABCLIA [id number] [address] OF [facility] FINAL PERFORMING LAB Normal [facility] Comment on above: Order Comment: Speci men Type: FLUID SPECIMENOrdering Facility: [facility] Address: [address] [place] [address] Result Comment: Tech nical component, office spec screening performed at: [facility], [address] [place] [address] CLIA: [id number] interpretation performed at: [facility], [address] [place] [address] CLIA# [id number] Director: Titi Voss MD Performed By: #### C YTONON ####[facility] LABIA [id number] [place] [address] [place] GROSS DESCRIPTION Normal [facility] Comment on above: Order Comment: Speci men Type: FLUID SPECIMENOrdering Facility: [facility] Address: [address] [place] [address] Result Comment: A. U rine, [id number] cc cloudy lexis fluid . ThinPrep prepared. Performed By: #### C YTONON ####[facility] LABIA [id number] [place] [address] [place] EBV capsid IgG Qn (S)on 11-02 EBV VCA IGG, QUAL Positive Abnormal Negative [facility] Comment on above: Order Comment: Speci men Type: BLOOD SPECIMENOrdering Facility: [facility] Address: [address] [place] [address] Result Comment: The result suggests recent or past EBV infection. The final interpretation should be done in the context of other EBV serology panel results. Performed By: #### 8 039-0, 7885-7 ####[facility] [id number] [place] [address] [place] Fibrinogen PPP-mCncon 2024 Fibrinogen Coag (PPP) [Mass/Vol] 94 mg/dL Low 200-400 [facility] Comment on above: Order Comment: Speci men Type: BLOOD SPECIMENOrdering Facility: [facility] Address: [address] [place] [address] Result Comment: Samp le checked for clot. Performed By: #### 3 4528-0, 3255-7 ####[facility] LABIA [id number] [place] [address] [place] HBV core Ab Ser Qlon 025 HBV core Ab Ql (S) Negative Normal Negative [facility] Comment on above: Order Comment: Speci men Type: BLOOD SPECIMENOrdering Facility: [facility] Address: [address] [place] [address] Result Comment: No e vidence of current or past infection with Hepatitis B virus. Should recent infection be suspected, repeat testing may be considered 3-4 weeks after this draw. Performed By: #### 3 1201-7, 68292-9, AHAVG, 5-3, 57200-7 ####[facility] LABCLIA [id number] [place] [address] [place] HBV surface Ab Ql (S)on 11-02 HBV surface Ab Qn (S) <8.[address] [facility] Comment on above: Order Comment: Speci men Type: BLOOD SPECIMENOrdering Facility: [facility] Address: [address] [place] [address] Result Comment: <8 m IU/mL: No serological evidence of immunity to Hepatitis B Virus.>/= 8 to <12 mIU/mL: No serological evidence of immunity to Hepatitis B Virus.>/= 12 mIU/mL: Consistent with serological evidence of immunity to Hepatitis B Virus. Performed By: #### 3 1201-7, 18255-8, AHAVG, 5194-3, 16356-2 ####[facility] LABCLIA [id number] [address] [place] HBV surface Ab Ser Qlon 11-02 HBV surface Ab Ql (S) Negative Normal [facility] Comment on above: Order Comment: Speci men Type: BLOOD SPECIMENOrdering Facility: [facility] Address: [address] [place] [address] Result Comment: No s erological evidence of immunity to Hepatitis B Virus. Performed By: #### 3 1201-7, 55618-1, [facility]ITAL[facility], 5194-3, 71796-9 ####[facility] LABCLIA [id number] [place] [address] [place] HBV surface Ag Ser Qlon 11-02 HBV surface Ag Ql (S) Negative Normal Negative [facility] Comment on above: Order Comment: Speci men Type: BLOOD SPECIMENOrdering Facility: [facility] Address: [address] [place] [address] Performed By: #### 3 1201-7, 32957-5, AHAKHUSHBOO, 5-3, 05674-3 ####[facility] LABCLIA [id number] [place] [address] [place] HCV Ab Ser Qlon 11-13-2024 HCV Ab Ql (S) Negative Normal Negative [facility] Comment on above: Order Comment: Speci men Type: BLOOD SPECIMENOrdering Facility: [facility] Address: [address] [place] [address] Result Comment: The result suggests no evidence of infection with Hepatitis C virus. Should recent infection be suspected, repeat testing may be considered 4-6 weeks after this draw. Performed By: #### 1 6128-1 ####[facility] LABCLIA [id number] [place] [address] [place] HEPATITIS A ANTIBODY, IGGon 11-13-2024 HAV IgG Ql (S) Negative Normal [facility] Comment on above: Order Comment: Speci men Type: BLOOD SPECIMENOrdering Facility: [facility] Address: [address] [place] [address] Result Comment: No s erological evidence of past exposure to hepatitis A virus or hepatitis A vaccination. Should recent infection be suspected, repeat testing is suggested 3-4 weeks after this draw. Performed By: #### 3 1201-7, 69720-5, AHAKHUSHBOO, 5-3, 54635-2 ####[facility] LABCLIA [id number] [place] [id number] [place] Performed By: #### 7 3752-8, FRANCHESCA, URI MIG ####[facility] LABCLIA [id number] [address] [address] [place] HIV 1+2 Ab IA Qlon HIV 1 and 2 Ab IA.rapid Nom (S/P/Bld) Normal [facility] Comment on above: Order Comment: Speci men Type: BLOOD SPECIMENOrdering Facility: [facility] Address: [address] [place] [address] Result Comment: Test not indicated. Performed By: #### 3 1201-7, 61969-1, AHAVG, 5-3, 06958-3 ####[facility] LABCLIA [id number] [place] [address] [place] HIV 1+2 Ab+HIV1 p24 Ag IA Ql Non-Reactive Normal Nonreactive [facility] Comment on above: Order Comment: Speci men Type: BLOOD SPECIMENOrdering Facility: [facility] Address: [address] [place] [address] Performed By: #### 3 1201-7, 09171-4, AHAVG, 5-3, 67532-9 ####[facility] LABIA [id number] [address] [place] HIV immunoassay testing algorithm interpretation (S/P/Bld) [Interp] Normal [facility] Comment on above: Order Comment: Speci men Type: BLOOD SPECIMENOrdering Facility: [facility] Address: [address] [place] [address] Result Comment: No e vidence of HIV-1 or HIV-2 infection. Should recent infection be suspected, repeat testing may be considered 2-3 weeks after this draw.Kleberg Rev. Code 3701.243(E): This information has been [...] or diagnoses. Performed By: #### 3 1201-7, 59420-8, AHAVG, 5-3, 01523-0 ####[facility] LABCLIA [id number] [address] [address] [place] Hepatic function 2000 panelo n 11-13-2024 Albumin [Mass/Vol] 2.8 g/dL Low 3.9-4.9 [facility] Comment on above: Order Comment: Speci men Type: BLOOD SPECIMENOrdering Facility: [facility] Address: [address] [place] [address] Performed By: #### 2 4321-2, 90932-1, 92389-5, 38047-3 ####[facility] LABCLIA [id number] [place] [address] [place] ALP [Catalytic activity/Vol] 225 U/L High 38-113 [facility] Comment on above: Order Comment: Speci men Type: BLOOD SPECIMENOrdering Facility: [facility] Address: [address] [place] [address] Performed By: #### 2 4321-2, 83205-7, 29205-5, 98170-9 ####[facility] LABCLIA [id number] [place] [address] [place] ALT [Catalytic activity/Vol] 22 U/L Normal 10-54 [facility] Comment on above: Order Comment: Speci men Type: BLOOD SPECIMENOrdering Facility: [facility] Address: [address] [place] [address] Performed By: #### 2 4321-2, 04536-8, 27742-4, 28259-1 ####[facility] LABCLIA [id number] [place] [address] [place] AST [Catalytic activity/Vol] 36 U/L Normal 14-40 [facility] Comment on above: Order Comment: Speci men Type: BLOOD SPECIMENOrdering Facility: [facility] Address: [address] [place] [address] Performed By: #### 2 4321-2, 61509-1, 99722-6, 35791-5 ####[facility] LABCLIA [id number] [address] [address] [place] Bilirubin [Mass/Vol] 1.8 mg/dL High 0.2-1.3 [facility] Comment on above: Order Comment: Speci men Type: BLOOD SPECIMENOrdering Facility: [facility] Address: [address] [place] [address] Performed By: #### 2 4321-2, 54669-5, 90611-9, 47837-8 ####[facility] LABCLIA [id number] [place] [address] [place] Bilirubin.conjugated [Mass/Vol] 0.9 mg/dL High <0.3 [facility] Comment on above: Order Comment: Speci men Type: BLOOD SPECIMENOrdering Facility: [facility] Address: [address] [place] [address] Performed By: #### 2 4321-2, 49239-1, 37358-3, 49694-7 ####[facility] LABCLIA [id number] [place] [address] [place] Protein [Mass/Vol] 5.2 g/dL Low 6.3-8.0 [facility] Comment on above: Order Comment: Speci men Type: BLOOD SPECIMENOrdering Facility: [facility] Address: [address] [place] [address] Performed By: #### 2 4321-2, 48849-6, 56312-5, 58253-2 ####[facility] LABCLIA [id number] [place] [address] [place] LIVER REC INIT W/Uon 025 ALLOGEN RESULTS TO FOLLOW See Allogen report to follow Normal [facility] Comment on above: Order Comment: Speci men Type: BLOOD SPECIMENOrdering Facility: [facility] Address: [address] [place] [address] Performed By: #### L RIPW ####[facility] [id number] [place] [address] [place] LPa SerPl-mCncon 11-13-2024 Lipoprotein a [Mass/Vol] mg/dL Normal <30 [facility] Comment on above: Order Comment: Speci men Type: BLOOD SPECIMENOrdering Facility: [facility] Address: [address] [place] [address] Performed By: #### 1 0835-7 ####[facility] LABCLIA [id number] [place] [address] [place] Lipid 1996 panelon Cholesterol [Mass/Vol] 52 mg/dL Normal <200 [facility] Comment on above: Order Comment: Speci men Type: BLOOD SPECIMENOrdering Facility: [facility] Address: [address] [place] [address] Result Comment: <200 mg/dL, Desirable 200-239 mg/dL, Borderline high>239 mg/dL, High Performed By: #### 2 4321-2, 15875-1, 35047-3, 38517-1 ####[facility] LABCLIA [id number] [address] [place] Cholesterol in HDL [Mass/Vol] 17 mg/dL Low >39 [facility] Comment on above: Order Comment: Speci men Type: BLOOD SPECIMENOrdering Facility: [facility] Address: [address] [place] [address] Result Comment: 40-5 9 mg/dL, Acceptable>59 mg/dL, High: Negative risk factor for coronary heart disease<40 mg/dL, Low: Positive risk factor for coronary heart disease Performed By: #### 2 4321-2, 37729-9, 11626-7, 26012-4 ####[facility] LABCLIA [id number] [place] [address] [place] Cholesterol in LDL [Mass/Vol] 26 mg/dL Normal <100 [facility] Comment on above: Order Comment: Speci men Type: BLOOD SPECIMENOrdering Facility: [facility] Address: [address] [place] [address] Result Comment: <100 mg/dL, Optimal 100-129 mg/dL, Near optimal/above optimal 130-159 mg/dL, Borderline high 160-189 mg/dL, High>189 mg/dL, Very highSecondary prevention optimal LDL Cholesterol levels are recommended to be < 70 mg/dL Performed By: #### 2 4321-2, 47227-3, 84196-1, 42051-5 ####[facility] LABCLIA [id number] [facility] [id number] [place] [address] [place] Cholesterol in LDL/Cholesterol in HDL [Mass ratio] 1.53 {ratio} Normal <2.54 [facility] Comment on above: Order Comment: Speci men Type: BLOOD SPECIMENOrdering Facility: [facility] Address: [address] [place] [address] Result Comment: Refe rence:1. National Cholesterol Education Program ATP III Guideline At-A-Glance Quick Desk Reference: National Heart, Lung, and Blood [place]. National Institutes of Health. 2001: NIH Publication No. 01-3305.2. An International Atherosclerosis Society position paper: global recommendations for the management of dyslipidemia: executive summary, Atherosclerosis. 2014: 232(2):410-413. Performed By: #### 2 4321-2, 57547-5, 26388-9, 87719-6 ####[facility] LABCLIA [id number] [facility] [place] [id number] [place] Cholesterol in VLDL [Mass/Vol] 9 mg/dL Normal <30 [facility] Comment on above: Order Comment: Speci men Type: BLOOD SPECIMENOrdering Facility: [facility] Address: [address] [place] [address] Performed By: #### 2 4321-2, 48450-9, 44864-2, 73541-7 ####[facility] LABCLIA [id number] [facility] [id number], [place] [address] [place] Cholesterol non HDL [Mass/Vol] 35 mg/dL Normal <130 [facility] Comment on above: Order Comment: Speci men Type: BLOOD SPECIMENOrdering Facility: [facility] Address: [address] [place] [address] Result Comment: <130 mg/dL, Optimal 130-159 mg/dL, Near optimal/above optimal 160-189 mg/dL, Borderline high 190-219 mg/dL, High>219 mg/dL, Very highSecondary prevention optimal non HDL Cholesterol levels are recommended to be <100 mg/dL Performed By: #### 2 4321-2, 99019-7, 48182-1, 57793-9 ####[facility] LABCLIA [id number] [address] [address] [place] Cholesterol.total/Donna sterol in HDL [Mass ratio] 3.06 {ratio} Normal <5.10 [facility] Comment on above: Order Comment: Speci men Type: BLOOD SPECIMENOrdering Facility: [facility] Address: [address] [place] [address] Performed By: #### 2 4321-2, 14210-5, 43567-7, 58374-8 ####[facility] LABIA [id number] [place] [address] [place] FASTING TIME 4 hrs Normal [facility] Comment on above: Order Comment: Speci men Type: BLOOD SPECIMENOrdering Facility: [facility] Address: [address] [place] [address] Performed By: #### 2 4321-2, 64402-3, 72715-4, 19534-0 ####[facility] LABIA [id number] [address] [address] [place] Triglyceride [Mass/Vol] 45 mg/dL Normal <150 [facility] Comment on above: Order Comment: Speci men Type: BLOOD SPECIMENOrdering Facility: [facility] Address: [address] [place] [address] Result Comment: <150 mg/dL, Normal 150-199 mg/dL, Borderline high 200-499 mg/dL, High>499 mg/dL, Very high Performed By: #### 2 4321-2, 17904-3, 52970-0, 06364-6 ####[facility] LABCLIA [id number] [place] [address] [place] MUMPS IGG ABon 11-13-2024 MuV IgG Ql (S) Negative Abnormal Positive [facility] Comment on above: Order Comment: Speci men Type: BLOOD SPECIMENOrdering Facility: [facility] Address: [address] [place] [address] Result Comment: The result suggests no history of Mumps vaccination or exposure to Mumps virus, however, some individuals with past history of Mumps vaccination may test negative using this test. Please correlate with past history of vaccination if applicable. Performed By: #### 7 3752-8, AHAVG, STRSER, MUMPSG ####[facility] LABCLIA [id number] [place] [address] [place] NT-proBNP SerPl-ncon 11-13 Natriuretic peptide.B prohormone N-Terminal [Mass/Vol] 1047 pg/mL High <125 [facility] Comment on above: Order Comment: Speci men Type: BLOOD SPECIMENOrdering Facility: [facility] Address: [address] [place] [address] Performed By: #### 2 4321-2, 47644-9, 31609-4, 88682-0 ####[facility] LABIA [id number] [place] [address] [place] NURSING PROGon 11-13-2024 NURSING PROG Normal [facility] NURSING PROG Normal [facility] PHOSPHATIDYLETHANOL (PETH)on 11-13-2024 EER PETH See Note Normal [facility] Comment on above: Order Comment: Speci men Type: BLOOD SPECIMENOrdering Facility: [facility] Address: [address] [place] [address] Result Comment: Auth orized individuals can access the [employer] Enhanced Reportwith an [employer] account using the following link.Your local lab can assist you in obtaining the patientreport if you don't have a Connect account.[email or web address] Performed By: #### P ETH ####[facility]IESCLIA [id number] [place] [address] PETH 16:0/18.2 (PLPETH) <10 Normal [facility] Comment on above: Order Comment: Speci men Type: BLOOD SPECIMENOrdering Facility: [facility] Address: [address] [place] [address] Result Comment: Refe rence ranges are not well established. Performed By: #### P ETH ####[facility] iMegaCLIA [id number] [place] [address] PETH 16:0/18:1 (POPETH) <10 Normal [facility] Comment on above: Order Comment: Speci men Type: BLOOD SPECIMENOrdering Facility: [facility] Address: [address] [place] [address] Result Comment: PEth 16:0/18:1 (POPEth)Less than 10 ng/mL............Not detectedLess than 20 ng/mL............Abstinence or light mhinmctboajzumcqia32 - 200 ng/mL................Moderate alcohol consumptionGreater than 200 ng/mL........Heavy alcohol consumption or chronicalcohol use(Reference: Alonso Landaverde and Mathew Ha 2018 J. Forensic Sci) Performed By: #### P ETH ####[facility]IESCLIA [id number] [place] [address] PETH INTERPRETATION See Comment Normal [facility] Comment on above: Order Comment: Speci men Type: BLOOD SPECIMENOrdering Facility: [facility] Address: [address] [place] [address] Result Comment: Phos phatidylethanol (PEth) is a [...] was developed and its performance characteristicsdetermined by [employer]. It has not been cleared orapproved by the U.S. Food and Drug Administration. This test wasperformed in a CLIA-certified laboratory and is intended forclinical purposes.Performed By: [employer] [place], [place] [address]Cmccywercv Director: Lizandro Ordonez MD, PhDCLIA Number: [id number] Performed By: #### P ETH ####Datria SystemsIA [id number] [place] [address] PT panel Coag (PPP)on 2024 INR Coag (PPP) [Relative time] 1.9 {INR} High 0.9-1.3 [facility] Comment on above: Order Comment: Speci men Type: BLOOD SPECIMENOrdering Facility: [facility] Address: [address] [place] [address] Result Comment: Sarah min K Antagonist (VKA) Therapeutic Range: INR 2 to 3 (Target INR of 2.5)Note: For patients treated with VKA drugs, such as warfarin, the [place] [employer] 2012 Guideline recommends [...] al. Chest 2012, 141:7S-47SNishimura RA, et al. [facility] 2017, 70: 252-289 Performed By: #### 3 4528-0, 3255-02 ####[facility] LABIA [id number] [place] [address] [place] PT Coag (PPP) [Time] 19.9 s High 9.7-13.0 [facility] Comment on above: Order Comment: Speci men Type: BLOOD SPECIMENOrdering Facility: [facility] Address: [address] [place] [address] Performed By: #### 3 4528-0, 3255-02 ####[facility] LABIA [id number] [place] [address] [place] Pathology biopsy report Marco Antonio (Tiss)on 11-13-2024 AP DISCLAIMER Normal [facility] Comment on above: Order Comment: Speci men Type: TISSUE SPECIMENOrdering Facility: [facility] Address: [address] [place] [address] Result Comment: Shellie pugh Developed Test (LDT) Disclaimer:Performance characteristics of immunohistochemical, immunofluorescent, and chromogenic in-situ hybridization tests have been determined by the performing laboratory within [facility]'s Thai Jackie [facility] Pathology and Laboratory Medicine Department ([facility], [facility], [facility], [facility], [facility], [facility], or [facility]) in a manner consistent with [...] Performed By: #### 6 6121-5 ####[facility] LABORATORYCLIA [id number] [place] [id number] [facility] LABCLIA [id number] [place] [address] [place] CASE REPORT Normal [facility] Comment on above: Order Comment: Speci men Type: TISSUE SPECIMENOrdering Facility: [facility] Address: [address] [place] [address] Result Comment: [facility] Pathology Report Case: [id number] Provider: Thai Pineda MD Collected: 11/13/2024 09:40 AMOrdering Location: [place] [address] Received: 11/15/2024 03:18 PMPathologist: Axel Berger MDSpecimen: Esophagus, Biopsy, r/o esophageal candidiasis Performed By: #### 6 6121-5 ####[facility] LABORATORYCLIA [id number] [address] LABCLIA [id number] [address] FINAL DIAGNOSIS Normal [facility] Comment on above: Order Comment: Speci men Type: TISSUE SPECIMENOrdering Facility: [facility] Address: [address] [place] [address] Result Comment: Esop hagus, biopsy:- Squamous mucosal candidiasis.JEL 11/16/2024 at 1034 EDT Performed By: #### 6 6121-5 ####[facility]ORATORYCLIA [id number] [address] LABCLIA [id number] [address] [place] FINAL PERFORMING LAB Normal [facility] Comment on above: Order Comment: Speci men Type: TISSUE SPECIMENOrdering Facility: [facility] Address: [address] [place] [address] Result Comment: Diag nostic interpretation performed at: [facility], [address] [place] [address] CLIA# [id number] Director: Rick Harris MD Performed By: #### 6 6121-5 ####[facility]ORYCLIA [id number] [address] LABCLIA [id number] [place] [address] [place] GROSS DESCRIPTION Normal [facility] Comment on above: Order Comment: Speci men Type: TISSUE SPECIMENOrdering Facility: [facility] Address: [address] [place] [address] Result Comment: Estuardo. Karma iglesias, BiopsyReceived in formalin are multiple pieces of espitia, soft tissue aggregating to 0.9 x 0.2 x 0.2 cm. Totally submitted in one cassette.BC November 15, 2024 4:50 PMGross examination performed at [facility], [address] [place] [address] Performed By: #### 6 6121-5 ####[facility]ORATORYCLIA [id number] [address] LABCLIA [id number] [place] [address] [place] Phosphate SerPl-mCncon 11-13 Phosphate [Mass/Vol] 1.5 mg/dL Low 2.7-4.8 [facility] Comment on above: Order Comment: Speci men Type: BLOOD SPECIMENOrdering Facility: [facility] Address: [address] [place] [address] Performed By: #### 2 777-1, 3016-3 ####[facility] LABCLIA [id number] [place] [address] [place] RUBEOLA (MEASLES)IGGon 11-13 MEASLES IGG AB, QUAL Positive Normal Positive [facility] Comment on above: Order Comment: Speci men Type: BLOOD SPECIMENOrdering Facility: [facility] Address: [address] [place] [address] Result Comment: The result suggests recent or past exposure to Measles virus or Measles vaccination. The current test does not detect neutralizing antibodies. Positive result may also be seen due to presence of passively-transferred antibodies. Please correlate with patient's history. Performed By: #### 7 852-7, MEASLG, VZVG2, 1988-10 ####[facility] LABCLIA [id number] [place] [address] [place] Reagin and Treponema pallidu m IgG and IgM [Interp]on 11-13-2024 T. pallidum IgG+IgM IA Ql (S) Non-Reactive Normal Nonreactive [facility] Comment on above: Order Comment: Speci men Type: BLOOD SPECIMENOrdering Facility: [facility] Address: [address] [place] [address] Performed By: #### 7 3752-8, AHAVG, STRSER, MUMPSG ####[facility] LABCLIA [id number] [place] [address] [place] Reagin+T pallidum IgG+IgM Se rPl-Impon 11-13-2024 Reagin and Treponema pallidum IgG and IgM [Interp] Cannot exclude recent Treponemal infection if specimen collected within 7-10 days after appearance of suspect lesions or 2-3 weeks after an exposure. Clinical correlation is required. Normal [facility] Comment on above: Order Comment: Speci [facility] Type: BLOOD SPECIMENOrdering Facility: [facility] Address: [address] [place] [address] Performed By: #### 7 3752-8, AHAVG, STRSER, MUMPSG ####[facility] LABCLIA [id number] [place] [id number] [place] STAPHYLOCOCCUS AUREUS AND MR SA SCREEN, PCR, NASALon 11-13-2024 S. aureus and MRSA panel ANANTH+probe (Nose) Not detected Normal Not Detected [facility] Comment on above: Order Comment: Speci men Type: SWABOrdering Facility: [facility] Address: [address] [place] [address] Performed By: #### S APCR ####[facility] LABCLIA [id number] [place] [address] [place] STRONGYLOIDES IGG BLon 11-13 STRONGYLOIDES IGG QUALITATIVE Negative Normal Negative [facility] Comment on above: Order Comment: Speci men Type: BLOOD SPECIMENOrdering Facility: [facility] Address: [address] [place] [address] Performed By: #### S TRSER ####[facility] LABCLIA [id number] [place] [address] [place] Performed By: #### 7 3752-8, AHAVG, STRSER, MUMPSG ####[facility] LABCLIA [id number] [place] [address] [place] T. gondii IgG Qn (S)on 11-13 TOXO IGG QUAL Negative Normal Negative [facility] Comment on above: Order Comment: Speci men Type: BLOOD SPECIMENOrdering Facility: [facility] Address: [address] [place] [address] Result Comment: No s erological evidence of past exposure to Toxoplasma gondii. Cannot exclude recent infection if the specimen collected within 3-4 weeks after infection. Performed By: #### 8 039-0, 7885-7 ####[facility] LABCLIA [id number] [place] [address] [place] THERAPY NTon 11-13-2024 THERAPY NT Normal [facility] TOXICOLOGY PANEL BLDon 11-13 Acetaminophen [Mass/Vol] ug/mL Low 10-30 [facility] Comment on above: Order Comment: Speci men Type: BLOOD SPECIMENOrdering Facility: [facility] Address: [address] [place] [address] Result Comment: Toxi c > 150 ug/mL 4 hours post ingestionThe Viviana Figueroa nomogram can be used to estimate the probability of hepatotoxicity via the relationship of plasma acetaminophen concentration to the post ingestion interval. (Skylar. Pediatrics. 1975. 55:871 to 876 and Viviana et al. Arch Parimutuel [employer] Med. 1981. 141:380 to 385).Reference ranges and high/low indicator flags are provided as general guidelines only. The treating physician must determine appropriate target levels/dosing based on the specific clinical situation. Performed By: #### T OXP ####[facility] LABCLIA [id number] [place] [address] [place] Ethanol [Mass/Vol] mg/dL Normal <11 [facility] Comment on above: Order Comment: Ezekiel ramirez Type: BLOOD SPECIMENOrdering Facility: [facility] Address: [address] [place] [address] Performed By: #### T OXP ####[facility] LABCLIA [id number] [place] [address] [place] Salicylates [Mass/Vol] mg/dL Low 3.0-30.0 [facility] Comment on above: Order Comment: Ezekiel ramirez Type: BLOOD SPECIMENOrdering Facility: [facility] Address: [address] [place] [address] Result Comment: The therapeutic range varies and has been reported to be 3.0 to 10.0 mg/dL for anti pyretic/analgesic conditions and 15.0 to 30.0 mg/dL for anti inflammatory/rheumatic fever conditions. Ranges published by the instrument wood heel finisher.Reference ranges and high/low indicator flags are provided as general guidelines only. The treating physician must determine appropriate target levels/dosing based on the specific clinical situation. Performed By: #### T OXP ####[facility] LABCLIA [id number] [place] [address] [place] TSH SerPl-aCncon 11-13-2024 TSH Qn 0.633 m[IU]/L Normal 0.270-4.200 [facility] Comment on above: Order Comment: Ezekiel ramirez Type: BLOOD SPECIMENOrdering Facility: [facility] Address: [address] [place] [address] Performed By: #### 2 777-1, 3016-3 ####[facility] LABCLIA [id number] [place] [address] [place] Upper GI endoscopyon 025 Upper GI endoscopy Normal [facility] VARICELLA ZOSTER IGGon 11-13 VARICELLA ZOSTER IGG, QUAL Positive Normal Positive [facility] Comment on above: Order Comment: Ezekiel ramirez Type: BLOOD SPECIMENOrdering Facility: [facility] Address: [address] [place] [address] Result Comment: The result suggests recent or past exposure to Varicella-Zoster virus or chickenpox vaccination or zoster vaccination. Positive result may also be seen due to presence of passively-transferred antibodies. Please correlate with patient's history. Performed By: #### 7 852-7, MEASLG, VZVG2, 1988-10 ####[facility] LABCLIA [id number] [place] [address] [place] Vit A SerPl-mCncon Retinol [Mass/Vol] 0.03 mg/L Low 0.30-1.20 [facility] Comment on above: Order Comment: Ezekiel ramirez Type: BLOOD SPECIMENOrdering Facility: [facility] Address: [address] [place] [address] Result Comment: This test was developed, and its performance characteristics determined by the [facility] Department of Pathology and Laboratory Medicine. It has not been cleared or approved by the FDA. The [facility] Department of Pathology and Laboratory Medicine is regulated under CLIA as qualified to perform high-complexity testing. This test is used for clinical purposes. It should not be regarded as investigational or for research. Performed By: #### 2 923-1, 1823-4 ####[facility] LABCLIA [id number] [place] [address] [place] Zinc SerPl-mCncon 04-12-2025 Zinc [Mass/Vol] 60 ug/dL Normal 60-120 [facility] Comment on above: Order Comment: Speci men Type: BLOOD SPECIMENOrdering Facility: [facility] Address: [address] [place] [address] Result Comment: This test was developed, and its performance characteristics determined by the [facility] Department of Pathology and Laboratory Medicine. It has not been cleared or approved by the FDA. The [facility] Department of Pathology and Laboratory Medicine is regulated under CLIA as qualified to perform high-complexity testing. This test is used for clinical purposes. It should not be regarded as investigational or for research. Performed By: #### 5 763-8 ####[facility] LABIA [id number] [place] [address] [place] AFP SerPl-mCncon 11-12-2024 AFP [Mass/Vol] 2.25 ng/mL Normal <9.00 [facility] Comment on above: Order Comment: Speci men Type: BLOOD SPECIMENOrdering Facility: [facility] Address: [address] [place] [address] Result Comment: The Alpha-Fetoprotein test was performed using the [employer] DxI immunoenzymatic assay. Results obtained with different assay methods or kits cannot be used interchangeably. Performed By: #### 1 834-1 ####[facility] LABIA [id number] [place] [address] [place] ARTERIAL BLOOD GASESon 11-12 Base deficit (BldA) [Moles/Vol] -8 mmol/L Low -2-0 [facility] Comment on above: Order Comment: Speci men Type: ARTERIAL BLOOD SPECIMENOrdering Facility: [facility] Address: [address] [place] [address] Performed By: #### A LLBG ####[facility] LABIA [id number] [place] [address] [place] Body temperature 98.6 [degF] Normal [facility] Comment on above: Order Comment: Speci men Type: ARTERIAL BLOOD SPECIMENOrdering Facility: [facility] Address: [address] [place] [address] Performed By: #### A LLBG ####[facility] [id number] [place] [address] [place] Calcium.ionized (Bld) [Mass/Vol] 1.20 mmol/L Normal 1.08-1.30 [facility] Comment on above: Order Comment: Speci men Type: ARTERIAL BLOOD SPECIMENOrdering Facility: [facility] Address: [address] [place] [address] Performed By: #### A LLBG ####[facility] [id number] [place] [address] [place] Calcium.ionized adjusted to pH 7.4 (BldA) [Moles/Vol] 1.24 mmol/L Normal 1.08-1.30 [facility] Comment on above: Order Comment: Speci men Type: ARTERIAL BLOOD SPECIMENOrdering Facility: [facility] Address: [address] [place] [address] Performed By: #### A LLBG ####[facility] [id number] [place] [address] [place] Carboxyhemoglobin (BldA) [Mass fraction] 2.0 % Normal 0.0-2.0 [facility] Comment on above: Order Comment: Speci men Type: ARTERIAL BLOOD SPECIMENOrdering Facility: [facility] Address: [address] [place] [address] Result Comment: Carb oxyhemoglobin Reference Range for Smokers: 2.0-8.0% Performed By: #### A LLBG ####[facility] [id number] [place] [address] [place] CO2 (Bld) [Partial pressure] 21 mm Hg Low 36-46 [facility] Comment on above: Order Comment: Speci men Type: ARTERIAL BLOOD SPECIMENOrdering Facility: [facility] Address: [address] [place] [address] Performed By: #### A LLBG ####[facility] LABCLIA [id number] [place] [address] [place] Glucose [Mass/Vol] 276 mg/dL High 60-105 [facility] Comment on above: Order Comment: Speci men Type: ARTERIAL BLOOD SPECIMENOrdering Facility: [facility] Address: [address] [place] [address] Performed By: #### A LLBG ####[facility] LABCLIA [id number] [place] [address] [place] HCO3 (Bld) [Moles/Vol] 15 mmol/L Low 22-26 [facility] Comment on above: Order Comment: Speci men Type: ARTERIAL BLOOD SPECIMENOrdering Facility: [facility] Address: [address] [place] [address] Performed By: #### A LLBG ####[facility] LABCLIA [id number] [place] [address] [place] Hematocrit (Bld) [Volume fraction] 22.4 % Low 39.0-51.0 [facility] Comment on above: Order Comment: Speci men Type: ARTERIAL BLOOD SPECIMENOrdering Facility: [facility] Address: [address] [place] [address] Performed By: #### A LLBG ####[facility] LABCLIA [id number] [place] [address] [place] Hemoglobin (Bld) [Mass/Vol] 7.2 g/dL Low 13.0-17.0 [facility] Comment on above: Order Comment: Speci men Type: ARTERIAL BLOOD SPECIMENOrdering Facility: [facility] Address: [address] [place] [address] Performed By: #### A LLBG ####[facility] LABCLIA [id number] [place] [address] [place] Lactate [Moles/Vol] 2.9 mmol/L High 0.5-2.2 [facility] Comment on above: Order Comment: Speci men Type: ARTERIAL BLOOD SPECIMENOrdering Facility: [facility] Address: [address] [place] [address] Performed By: #### A LLBG ####[facility] LABCLIA [id number] [place] [address] [place] Methemoglobin (Bld) [Mass fraction] 1.0 % Normal 0.0-1.5 [facility] Comment on above: Order Comment: Speci men Type: ARTERIAL BLOOD SPECIMENOrdering Facility: [facility] Address: [address] [place] [address] Performed By: #### A LLBG ####[facility] LABCLIA [id number] [place] [address] [place] O2 THERAPY RA=Room Air Normal [facility] Comment on above: Order Comment: Speci men Type: ARTERIAL BLOOD SPECIMENOrdering Facility: [facility] Address: [address] [place] [address] Performed By: #### A LLBG ####[facility] LABCLIA [id number] [place] [id number] [place] Oxygen (Bld) [Partial pressure] 94 mm Hg Normal 85-95 [facility] Comment on above: Order Comment: Speci men Type: ARTERIAL BLOOD SPECIMENOrdering Facility: [facility] Address: [address] [place] [address] Performed By: #### A LLBG ####[facility] LABCLIA [id number] [place] [id number] [place] Oxyhemoglobin (BldA) [Mass fraction] 96 % Normal 95-98 [facility] Comment on above: Order Comment: Speci men Type: ARTERIAL BLOOD SPECIMENOrdering Facility: [facility] Address: [address] [place] [address] Performed By: #### A LLBG ####[facility] LABCLIA [id number] [address] [address] [place] pH (Bld) 7.46 [pH] High 7.35-7.45 [facility] Comment on above: Order Comment: Speci men Type: ARTERIAL BLOOD SPECIMENOrdering Facility: [facility] Address: [address] [place] [address] Performed By: #### A LLBG ####[facility] LABCLIA [id number] [place] [id number] [place] PO2 / FIO2 RATIO 448 mmHg Normal >300 [facility] Comment on above: Order Comment: Speci men Type: ARTERIAL BLOOD SPECIMENOrdering Facility: [facility] Address: [address] [place] [address] Performed By: #### A LLBG ####[facility] LABIA [id number] [place] [address] [place] Potassium [Moles/Vol] 3.9 mmol/L Normal 3.5-5.[address] [facility] Comment on above: Order Comment: Speci men Type: ARTERIAL BLOOD SPECIMENOrdering Facility: [facility] Address: [address] [place] [address] Performed By: #### A LLBG ####[facility] LABIA [id number] [place] [address] [place] Sodium [Moles/Vol] 124 mmol/L Low 136-144 [facility] Comment on above: Order Comment: Speci men Type: ARTERIAL BLOOD SPECIMENOrdering Facility: [facility] Address: [address] [place] [address] Performed By: #### A LLBG ####[facility] LABCLIA [id number] [place] [id number] [place] Bacteria Ur Culton 5 Bacteria identified Cx Nom (U) Normal [facility] Comment on above: Performed By: #### 6 30-4, 18420-3 ####[facility] LABCLIA [id number] [address] [address] [place] Basic metabolic 2000 panelon 11-12-2024 Anion gap [Moles/Vol] 11 mmol/L Normal 8-[address] [facility] Comment on above: Order Comment: Speci men Type: BLOOD SPECIMENOrdering Facility: [facility] Address: [address] [place] [address] Performed By: #### 2 4321-2, 00999-9, 277- ####[facility] LABIA [id number] [place] [address] [place] Calcium [Mass/Vol] 9.2 mg/dL Normal 8.5-10.2 [facility] Comment on above: Order Comment: Speci men Type: BLOOD SPECIMENOrdering Facility: [facility] Address: [address] [place] [address] Performed By: #### 2 4321-2, 94568-1, 2776- ####[facility] LABIA [id number] [place] [address] [place] Chloride [Moles/Vol] 99 mmol/L Normal 98-107 [facility] Comment on above: Order Comment: Speci men Type: BLOOD SPECIMENOrdering Facility: [facility] Address: [address] [place], [place] [address] Performed By: #### 2 4321-2, 45160-0, 2776- ####[facility] LABIA [id number] [place] [id number] [place] CO2 [Moles/Vol] 14 mmol/L Low 22-30 [facility] Comment on above: Order Comment: Speci men Type: BLOOD SPECIMENOrdering Facility: [facility] Address: [address] [place] [address] Performed By: #### 2 4321-2, 09619-4, 277-1 ####[facility] LABIA [id number] [address] [address] [place] Creatinine [Mass/Vol] 1.22 mg/dL Normal 0.73-1.[address] [facility] Comment on above: Order Comment: Ezekiel ramirez Type: BLOOD SPECIMENOrdering Facility: [facility] Address: [address] [place] [address] Performed By: #### 2 4321-2, 00922-4, 2777- ####[facility] [id number] [address] [address] [place] Creatinine and Glomerular filtration rate.predicted panel (S/P/Bld) 69 mL/min/1.73m??? Normal >=60 [facility] Comment on above: Order Comment: Ezekiel ramirez Type: BLOOD SPECIMENOrdering Facility: [facility] Address: [address] [place] [address] Result Comment: Patric mated Glomerular Filtration Rate [...] actual GFR. Performed By: #### 2 4321-2, 35678-1, 2777- ####[facility] [id number] [address] [address] [place] Glucose [Mass/Vol] 304 mg/dL High 74-99 [facility] Comment on above: Order Comment: Ezekiel ramirez Type: BLOOD SPECIMENOrdering Facility: [facility] Address: [address] [place] [address] Result Comment: The [place] [employer] (ADA) provides guidance for cutoff [...] Standards of Medical Care in Diabetes 2016, [place] [employer]. Diabetes Care. 2016.39(Suppl 1). Performed By: #### 2 4321-2, 34578-8, 2776- ####[facility] LABCLIA [id number] [address] [address] [place] Potassium [Moles/Vol] 4.3 mmol/L Normal 3.7-5.[address] [facility] Comment on above: Order Comment: Meggani men Type: BLOOD SPECIMENOrdering Facility: [facility] Address: [address] [place] [address] Performed By: #### 2 4320-2, 59316-6, 2776-08 ####[facility] LABCLIA [id number] [place] [id number] [place] Sodium [Moles/Vol] 124 mmol/L Low 136-144 [facility] Comment on above: Order Comment: Ezekiel ramirez Type: BLOOD SPECIMENOrdering Facility: [facility] Address: [address] [place] [address] Performed By: #### 2 432-2, 46165-5, 2776-08 ####[facility] LABCLIA [id number] [place] [id number] [place] Urea nitrogen [Mass/Vol] 22 mg/dL Normal 9-24 [facility] Comment on above: Order Comment: Meggani men Type: BLOOD SPECIMENOrdering Facility: [facility] Address: [address] [place] [address] Performed By: #### 2 4321-2, 34842-3, 2776- ####[facility] LABCLIA [id number] [address] [address] [place] CASE MGT INIT ASSESon 2024 CASE MGT INIT ASSES Normal [facility] CBC panel Auto (Bld)on 11-12 Erythrocyte distribution width (RBC) [Ratio] 16.9 % High 11.5-15.0 [facility] Comment on above: Order Comment: Speci men Type: BLOOD SPECIMENOrdering Facility: [facility] Address: [address] [place] [address] Performed By: #### 5 8410-2 ####[facility] LABIA [id number] [place] [address] [place] Hematocrit (Bld) [Volume fraction] 21.7 % Low 39.0-51.0 [facility] Comment on above: Order Comment: Speci men Type: BLOOD SPECIMENOrdering Facility: [facility] Address: [address] [place] [address] Performed By: #### 5 8410-2 ####[facility] LABIA [id number] [place] [address] [place] Hemoglobin (Bld) [Mass/Vol] 7.5 g/dL Low 13.0-17.0 [facility] Comment on above: Order Comment: Speci men Type: BLOOD SPECIMENOrdering Facility: [facility] Address: [address] [place] [address] Performed By: #### 5 8410-2 ####[facility] LABIA [id number] [place] [id number] [place] MCH (RBC) [Entitic mass] 31.5 pg Normal 26.0-34.0 [facility] Comment on above: Order Comment: Speci men Type: BLOOD SPECIMENOrdering Facility: [facility] Address: [address] [place] [address] Performed By: #### 5 8410-2 ####[facility] LABIA [id number] [place] [id number] [place] MCHC (RBC) [Mass/Vol] 34.6 g/dL Normal 30.5-36.[address] [facility] Comment on above: Order Comment: Speci men Type: BLOOD SPECIMENOrdering Facility: [facility] Address: [address] [place] [address] Performed By: #### 5 8410-2 ####[facility] LABCLIA [id number] [place] [address] [place] MCV (RBC) [Entitic vol] 91.2 fL Normal 80.0-100.0 [facility] Comment on above: Order Comment: Speci men Type: BLOOD SPECIMENOrdering Facility: [facility] Address: [address] [place] [address] Performed By: #### 5 8410-2 ####[facility] LABCLIA [id number] [place] [address] [place] Nucleated RBC (Bld) [#/Vol] 10*3/uL Normal <0.01 [facility] Comment on above: Order Comment: Speci men Type: BLOOD SPECIMENOrdering Facility: [facility] Address: [address] [place] [address] Performed By: #### 5 8410-2 ####[facility] LABIA [id number] [place] [address] [place] Platelet mean volume (Bld) [Entitic vol] 10.8 fL Normal 9.0-12.7 [facility] Comment on above: Order Comment: Speci men Type: BLOOD SPECIMENOrdering Facility: [facility] Address: [address] [place] [address] Performed By: #### 5 8410-2 ####[facility] LABCLIA [id number] [place] [address] [place] Platelets (Bld) [#/Vol] 31 10*3/uL Low 150-400 [facility] Comment on above: Order Comment: Speci men Type: BLOOD SPECIMENOrdering Facility: [facility] Address: [address] [place] [address] Result Comment: Resu lts checked and verified.No clot detected. Performed By: #### 5 8410-2 ####[facility] LABCLIA [id number] [place] [address] [place] RBC (Bld) [#/Vol] 2.38 10*6/uL Low 4.20-6.00 [facility] Comment on above: Order Comment: Speci men Type: BLOOD SPECIMENOrdering Facility: [facility] Address: [address] [place] [address] Performed By: #### 5 8410-2 ####[facility] LABCLIA [id number] [place] [address] [place] WBC (Bld) [#/Vol] 6.35 10*3/uL Normal 3.70-11.00 [facility] Comment on above: Order Comment: Speci men Type: BLOOD SPECIMENOrdering Facility: [facility] Address: [address] [place] [address] Performed By: #### 5 8410-2 ####[facility] LABCLIA [id number] [place] [address] [place] Erythrocyte distribution width (RBC) [Ratio] 17.3 % High 11.5-15.0 [facility] Comment on above: Order Comment: Speci men Type: BLOOD SPECIMENOrdering Facility: [facility] Address: [address] [place] [address] Performed By: #### 5 8410-2 ####[facility] LABCLIA [id number] [place] [address] [place] Hematocrit (Bld) [Volume fraction] 22.9 % Low 39.0-51.0 [facility] Comment on above: Order Comment: Speci men Type: BLOOD SPECIMENOrdering Facility: [facility] Address: [address] [place], [place] [address] Performed By: #### 5 8410-2 ####[facility] LABCLIA [id number] [place] [address] [place] Hemoglobin (Bld) [Mass/Vol] 7.9 g/dL Low 13.0-17.0 [facility] Comment on above: Order Comment: Speci men Type: BLOOD SPECIMENOrdering Facility: [facility] Address: [address] [place] [address] Performed By: #### 5 8410-2 ####[facility] LABIA [id number] [place] [address] [place] MCH (RBC) [Entitic mass] 31.5 pg Normal 26.0-34.0 [facility] Comment on above: Order Comment: Speci men Type: BLOOD SPECIMENOrdering Facility: [facility] Address: [address] [place] [address] Performed By: #### 5 8410-2 ####[facility] LABIA [id number] [place] [address] [place] MCHC (RBC) [Mass/Vol] 34.5 g/dL Normal 30.5-36.[address] [facility] Comment on above: Order Comment: Speci men Type: BLOOD SPECIMENOrdering Facility: [facility] Address: [address] [place] [address] Performed By: #### 5 8410-2 ####[facility] LABIA [id number] [place] [address] [place] MCV (RBC) [Entitic vol] 91.2 fL Normal 80.0-100.0 [facility] Comment on above: Order Comment: Speci men Type: BLOOD SPECIMENOrdering Facility: [facility] Address: [address] [place] [address] Performed By: #### 5 8410-2 ####[facility] LABIA [id number] [place] [address] [place] Nucleated RBC (Bld) [#/Vol] 10*3/uL Normal <0.01 [facility] Comment on above: Order Comment: Speci men Type: BLOOD SPECIMENOrdering Facility: [facility] Address: [address] [place] [address] Performed By: #### 5 8410-2 ####[facility] LABIA [id number] [place] [address] [place] Platelet mean volume (Bld) [Entitic vol] 11.6 fL Normal 9.0-12.7 [facility] Comment on above: Order Comment: Speci men Type: BLOOD SPECIMENOrdering Facility: [facility] Address: [address] [place] [address] Performed By: #### 5 8410-2 ####[facility] [id number] [place] [address] [place] Platelets (Bld) [#/Vol] 33 10*3/uL Low 150-400 [facility] Comment on above: Order Comment: Speci men Type: BLOOD SPECIMENOrdering Facility: [facility] Address: [address] [place] [address] Result Comment: Resu lts checked and verified.No clot detected. Performed By: #### 5 8410-2 ####[facility] LABIA [id number] [place] [address] [place] RBC (Bld) [#/Vol] 2.51 10*6/uL Low 4.20-6.00 [facility] Comment on above: Order Comment: Speci men Type: BLOOD SPECIMENOrdering Facility: [facility] Address: [address] [place] [address] Performed By: #### 5 8410-2 ####[facility] LABIA [id number] [place] [address] [place] WBC (Bld) [#/Vol] 7.27 10*3/uL Normal 3.70-11.00 [facility] Comment on above: Order Comment: Speci men Type: BLOOD SPECIMENOrdering Facility: [facility] Address: [address] [place] [address] Performed By: #### 5 8410-2 ####[facility] LABCLIA [id number] [place] [address] [place] CITRATED PLATELET COUNTon CITRATED PLATELET COUNT (WAM) 33 k/uL Low 150-400 [facility] Comment on above: Order Comment: Speci men Type: BLOOD SPECIMENOrdering Facility: [facility] Address: [address] [place] [address] Result Comment: Plat elet count confirmed by manual review of peripheral blood smear. No clot detected. Performed By: #### C ITPLT ####[facility] LABCLIA [id number] [place] [address] [place] CNCNPATEDon 11-12-2024 CNCNPATED Normal [facility] CNPNon 11-12-2024 CNPN Normal [facility] CONFIRM BLOOD TYPEon 025 ABO O Normal [facility] Comment on above: Order Comment: Speci men Type: BLOOD SPECIMENOrdering Facility: [facility] Address: [address] [place] [address] Performed By: #### C ONABO ####[facility] BANKCLIA [id number] [place] [address] [place] Rh Nom (Bld) Positive Normal [facility] Comment on above: Order Comment: Speci men Type: BLOOD SPECIMENOrdering Facility: [facility] Address: [address] [place] [address] Performed By: #### C ONABO ####[facility] BLO[facility] BANKCLIA [id number] [place] [address] [place] CONSULTon 11-12-2024 CONSULT Normal [facility] CONSULT Normal [facility] CONSULT Normal [facility] CONSULT Normal [facility] CONSULT Normal [facility] CONSULT Normal [facility] CT CHEST WO IVCONon 11-13-19 CT CHEST WO IVCON Normal [facility] D dimer FEU PPP-mCncon 11-12 Fibrin D-dimer FEU (PPP) [Mass/Vol] 3850 ng/mL FEU High <500 [facility] Comment on above: Order Comment: Speci men Type: BLOOD SPECIMENOrdering Facility: [facility] Address: [address] [place] [address] Performed By: #### 4 8065-7 ####[facility] LABCLIA [id number] [place] [address] [place] ECHO WITH AGITATED SALINE CO NTRASTon 11-12-2024 ECHO WITH AGITATED SALINE CONTRAST Normal [facility] Fibrin D-dimer FEU (PPP) [Ma ss/Vol]on 11-12-2024 D DIMER AGE-RELATED CUTOFF 580 ng/mL FEU Normal [facility] Comment on above: Order Comment: Speci men Type: BLOOD SPECIMENOrdering Facility: [facility] Address: [address] [place] [address] Performed By: #### 4 8065-7 ####[facility] LABCLIA [id number] [place] [address] [place] Hepatic function 2000 panelo n 11-12-2024 Albumin [Mass/Vol] 3.0 g/dL Low 3.9-4.9 [facility] Comment on above: Order Comment: Speci men Type: BLOOD SPECIMENOrdering Facility: [facility] Address: [address] [place] [address] Performed By: #### 2 4321-2, 33905-1, 2777-1 ####[facility] LABCLIA [id number] [place] [address] [place] ALP [Catalytic activity/Vol] 252 U/L High 38-113 [facility] Comment on above: Order Comment: Speci men Type: BLOOD SPECIMENOrdering Facility: [facility] Address: [address] [place] [address] Performed By: #### 2 4321-2, 77355-0, 27702-01 ####[facility] LABCLIA [id number] [place] [id number] [place] ALT [Catalytic activity/Vol] 24 U/L Normal 10-54 [facility] Comment on above: Order Comment: Speci men Type: BLOOD SPECIMENOrdering Facility: [facility] Address: [address] [place] [address] Performed By: #### 2 4321-2, 33220-8, 27702-01 ####[facility] LABCLIA [id number] [place] [address] [place] AST [Catalytic activity/Vol] 41 U/L High 14-40 [facility] Comment on above: Order Comment: Speci men Type: BLOOD SPECIMENOrdering Facility: [facility] Address: [address] [place] [address] Performed By: #### 2 4321-2, 52519-0, 2776-08 ####[facility] LABCLIA [id number] [place] [address] [place] Bilirubin [Mass/Vol] 1.8 mg/dL High 0.2-1.3 [facility] Comment on above: Order Comment: Speci men Type: BLOOD SPECIMENOrdering Facility: [facility] Address: [address] [place] [address] Performed By: #### 2 4321-2, 57949-1, 27702-01 ####[facility] LABCLIA [id number] [place] [address] [place] Bilirubin.conjugated [Mass/Vol] 0.9 mg/dL High <0.3 [facility] Comment on above: Order Comment: Speci men Type: BLOOD SPECIMENOrdering Facility: [facility] Address: [address] [place] [address] Result Comment: Resu lts may be falsely decreased due to interference from hemolysis. Suggest reorder as clinically indicated. Performed By: #### 2 4321-2, 78399-4, 2777-1 ####[facility] LABCLIA [id number] [place] [address] [place] Protein [Mass/Vol] 5.5 g/dL Low 6.3-8.0 [facility] Comment on above: Order Comment: Speci men Type: BLOOD SPECIMENOrdering Facility: [facility] Address: [address] [place] [address] Performed By: #### 2 4321-2, 97151-8, 27702-01 ####[facility] LABCLIA [id number] [place] [id number] [place] MEDICAL EMERon 11-12-2024 MEDICAL KRISTINA Normal [facility] NURSING PROGon 11-12-2024 NURSING PROG Normal [facility] NURSING PROG Normal [facility] NURSING PROG Normal [facility] NURSING PROG Normal [facility] NUTRITIONon 11-12-2024 NUTRITION Normal [facility] PTT, ANTICOAGULANT THERAPYon 11-12-2024 aPTT Coag (PPP) [Time] 62.6 s High 23.0-32.4 [facility] Comment on above: Order Comment: Speci men Type: BLOOD SPECIMENOrdering Facility: [facility] Address: [address] [place] [address] Performed By: #### P TTAC ####[facility] LABCLIA [id number] [place] [id number] [place] Phosphate SerPl-mCncon 11-12 Phosphate [Mass/Vol] 2.3 mg/dL Low 2.7-4.8 [facility] Comment on above: Order Comment: Speci men Type: BLOOD SPECIMENOrdering Facility: [facility] Address: [address] [place] [address] Performed By: #### 2 4321-2, 13339-2, 2777-1 ####[facility] LABCLIA [id number] [place] [id number] [place] SOCIAL WORKon 11-12-2024 SOCIAL WORK Normal [facility] THERAPY NTon 11-12-2024 THERAPY NT Normal [facility] THERAPY NT Normal [facility] THROMBOGRAPH PANELon 025 Clot angle TEG (Bld) [Angle] 32.8 degrees Low 47.0-74.0 [facility] Comment on above: Order Comment: Speci men Type: BLOOD SPECIMENOrdering Facility: [facility] Address: [address] [place] [address] Performed By: #### T EGPNP ####[facility] LABIA [id number] [place] [address] [place] Clot Lysis 30 Min post maximum clot amplitude TEG (Bld) [Length fraction] 0.0 % Normal 0.0-8.0 [facility] Comment on above: Order Comment: Speci men Type: BLOOD SPECIMENOrdering Facility: [facility] Address: [address] [place] [address] Performed By: #### T EGPNP ####[facility] LABIA [id number] [place] [address] [place] Clotting time TEG (Bld) 5.0 minutes Normal 4.0-10.0 [facility] Comment on above: Order Comment: Speci men Type: BLOOD SPECIMENOrdering Facility: [facility] Address: [address] [place] [address] Performed By: #### T EGPNP ####[facility] LABIA [id number] [place] [id number] [place] Coagulation index TEG Qn (Bld) -8.4 Low -4.6-3.2 [facility] Comment on above: Order Comment: Speci men Type: BLOOD SPECIMENOrdering Facility: [facility] Address: [address] [place] [address] Result Comment: This test was developed, and its performance characteristics determined by the [facility] Department of Pathology and Laboratory Medicine. It has not been cleared or approved by the FDA. The [facility] Department of Pathology and Laboratory Medicine is regulated under CLIA as qualified to perform high-complexity testing. This test is used for clinical purposes. It should not be regarded as investigational or for research. Performed By: #### T EGPNP ####[facility] LABCLIA [id number] [facility] [address] [place] Maximum clot firmness TEG (Bld) [Length] 28.5 mm Low 51.0-75.0 [facility] Comment on above: Order Comment: Ezekiel ramirez Type: BLOOD SPECIMENOrdering Facility: [facility] Address: [address] [place] [address] Performed By: #### T EGPNP ####[facility] [id number] [address] [place] Thromboelastography after addtion of heparinase panel (Bld) Normal [facility] Comment on above: Order Comment: Ezekiel ramirez Type: BLOOD SPECIMENOrdering Facility: [facility] Address: [address] [place] [address] Result Comment: A th romboelastograph (TEG) study [...] manner. Performed By: #### T EGPNP ####[facility] LABCLIA [id number] [place] [address] [place] TOXICOLOGY SCREEN, ROUTINE U RINEon 11-12-2024 Amphetamines Confirm (U) [Mass/Vol] Negative Normal Negative [facility] Comment on above: Order Comment: Speci men Type: URINE SPECIMENOrdering Facility: [facility] Address: [address] [place] [address] Result Comment: Cuto ff threshold at 1000 ng/mL. Performed By: #### U TOX2 ####[facility] LABIA [id number] [place] [address] [place] BARBITURATES, URINE Negative Normal Negative [facility] Comment on above: Order Comment: Speci men Type: URINE SPECIMENOrdering Facility: [facility] Address: [address] [place] [address] Result Comment: Cuto ff threshold at 200 ng/mL. Performed By: #### U TOX2 ####[facility] LABIA [id number] [place] [address] [place] BENZODIAZEPINES, UR Negative Normal Negative [facility] Comment on above: Order Comment: Speci men Type: URINE SPECIMENOrdering Facility: [facility] Address: [address] [place] [address] Result Comment: Cuto ff threshold at 200 ng/mL. Performed By: #### U TOX2 ####[facility] LABIA [id number] [place] [address] [place] Cannabinoids Screen Ql (U) Negative Normal Negative [facility] Comment on above: Order Comment: Speci men Type: URINE SPECIMENOrdering Facility: [facility] Address: [address] [place] [address] Result Comment: Cuto ff threshold at 50 ng/mL. Performed By: #### U TOX2 ####[facility] LABCLIA [id number] [address], [place] [address] [place] Cocaine Ql (U) Negative Normal Negative [facility] Comment on above: Order Comment: Speci men Type: URINE SPECIMENOrdering Facility: [facility] Address: [address] [place] [address] Result Comment: Cuto ff threshold at 300 ng/mL. Performed By: #### U TOX2 ####[facility] LABCLIA [id number] [place] [address] [place] Ethanol (U) [Mass/Vol] <11 Normal <11 Cl [facility] Comment on above: Order Comment: Speci men Type: URINE SPECIMENOrdering Facility: [facility] Address: [address] [place] [address] Performed By: #### U TOX2 ####[facility] LABCLIA [id number] [place] [address] [place] Opiates Screen Ql (U) Negative Normal Negative [facility] Comment on above: Order Comment: Speci men Type: URINE SPECIMENOrdering Facility: [facility] Address: [address] [place] [address] Result Comment: Cuto ff threshold at 300 ng/mL. Performed By: #### U TOX2 ####[facility] LABCLIA [id number] [address] [place] [address] [place] oxyCODONE cutoff Screen (U) [Mass/Vol] Positive Abnormal Negative [facility] Comment on above: Order Comment: Speci men Type: URINE SPECIMENOrdering Facility: [facility] Address: [address] [place] [address] Result Comment: Cuto ff threshold at 100 ng/mL. Performed By: #### U TOX2 ####[facility] LABCLIA [id number] [place] [address] [place] Phencyclidine Ql (U) Negative Normal Negative [facility] Comment on above: Order Comment: Speci men Type: URINE SPECIMENOrdering Facility: [facility] Address: [address] [place] [address] Result Comment: Cuto ff threshold at 25 ng/mL. Performed By: #### U TOX2 ####[facility] LABCLIA [id number] [address] [place] TYPE + SCREENon 11-12-2024 ABO O Normal [facility] Comment on above: Order Comment: Speci men Type: BLOOD SPECIMENOrdering Facility: [facility] Address: [address] [place] [address] Performed By: #### T SCR ####[facility] BLOOD BANKIA [id number] [place] [address] [place] Rh Nom (Bld) Positive Normal [facility] Comment on above: Order Comment: Speci men Type: BLOOD SPECIMENOrdering Facility: [facility] Address: [address] [place] [address] Performed By: #### T SCR ####[facility] BLOOD BANKIA [id number] [address] OF [facility] TYPE AND SCREEN EXPIRATION 11/15/2024 23:59 Normal [facility] Comment on above: Order Comment: Speci men Type: BLOOD SPECIMENOrdering Facility: [facility] Address: [address] [place] [address] Performed By: #### T SCR ####[facility] BLOOD BANKIA [id number] [place] [address] [place] Urinalysis complete panel (U )on 11-12-2024 BACTERIA UL 1553.2 uL High Negative [facility] Comment on above: Order Comment: Speci men Type: URINE SPECIMENOrdering Facility: [facility] Address: [address] [place] [address] Performed By: #### 6 30-4, 01413-6 ####[facility] LABCLIA [id number] [place] [id number] [place] Bilirubin Ql (U) 1+ Abnormal Negative [facility] Comment on above: Order Comment: Speci men Type: URINE SPECIMENOrdering Facility: [facility] Address: [address] [place] [address] Result Comment: Sugg est correlation with clinical findings and serum bilirubin if clinically indicated. Performed By: #### 6 30-4, 78086-1 ####[facility] LABCLIA [id number] [place] [id number] [place] Clarity (Unsp spec) Cloudy Abnormal Clear [facility] Comment on above: Order Comment: Speci men Type: URINE SPECIMENOrdering Facility: [facility] Address: [address] [place] [address] Performed By: #### 6 30-, 51529-3 ####[facility] LABCLIA [id number] [place] [address] [place] Color (U) Latimer Abnormal Yellow [facility] Comment on above: Order Comment: Speci men Type: URINE SPECIMENOrdering Facility: [facility] Address: [address] [place] [address] Performed By: #### 6 30-4, 66403-3 ####[facility] LABCLIA [id number] [place] [id number] [place] Epithelial cells LM.HPF (Urine sed) [#/Area] None Seen Normal [facility] Comment on above: Order Comment: Speci men Type: URINE SPECIMENOrdering Facility: [facility] Address: [address] [place] [address] Performed By: #### 6 30-4, 66314-2 ####[facility] LABCLIA [id number] [place] [id number] [place] Glucose Test strip (U) [Mass/Vol] Negative Normal Negative [facility] Comment on above: Order Comment: Speci men Type: URINE SPECIMENOrdering Facility: [facility] Address: [address] [place] [address] Performed By: #### 6 30-4, 76169-3 ####[facility] LABCLIA [id number] [address] [place] [address] [place] Hemoglobin Ql (U) 3+ Abnormal Negative [facility] Comment on above: Order Comment: Speci men Type: URINE SPECIMENOrdering Facility: [facility] Address: [address] [place] [address] Performed By: #### 6 30-4, 67477-1 ####[facility] LABCLIA [id number] [address] [place] [address] [place] Hyaline casts (Urine sed) [#/Area] 0 /[LPF] Normal 0 /LPF [facility] Comment on above: Order Comment: Speci men Type: URINE SPECIMENOrdering Facility: [facility] Address: [address] [place] [address] Performed By: #### 6 30-4, 60473-7 ####[facility] LABCLIA [id number] [address] [place] [address] [place] Ketones Ql (U) Negative Normal Negative [facility] Comment on above: Order Comment: Speci men Type: URINE SPECIMENOrdering Facility: [facility] Address: [address] [place] [address] Performed By: #### 6 30-4, 65239-9 ####[facility] LABCLIA [id number] [address] [address] [place] Leukocyte esterase Test strip Ql (U) 2+ Abnormal Negative [facility] Comment on above: Order Comment: Speci men Type: URINE SPECIMENOrdering Facility: [facility] Address: [address] [place] [address] Performed By: #### 6 30-4, 39737-4 ####[facility] LABCLIA [id number] [address] [place] [address] [place] Nitrite Ql (U) Negative Normal Negative [facility] Comment on above: Order Comment: Speci men Type: URINE SPECIMENOrdering Facility: [facility] Address: [address] [place] [address] Performed By: #### 6 30-4, 60943-6 ####[facility] LABCLIA [id number] [address] [place] [address] [place] pH (U) 6.0 [pH] Normal <8.5 [facility] Comment on above: Order Comment: Speci men Type: URINE SPECIMENOrdering Facility: [facility] Address: [address] [place] [address] Performed By: #### 6 30-4, 80804-2 ####[facility] LABIA [id number] [address], [facility] [place] Protein (U) [Mass/Vol] 3+ Abnormal Negative Cl [facility] Comment on above: Order Comment: Speci men Type: URINE SPECIMENOrdering Facility: [facility] Address: [address] [place] [address] Performed By: #### 6 30-4, 80585-8 ####[facility] LABIA [id number] [address], [facility] [place] RBC LM.HPF (Urine sed) [#/Area] /[HPF] Abnormal 0-2 /HPF [facility] Comment on above: Order Comment: Speci men Type: URINE SPECIMENOrdering Facility: [facility] Address: [address] [place] [address] Performed By: #### 6 30-4, 03805-0 ####[facility] LABCLIA [id number] [address] [place] [address] [place] Specific gravity (U) [Rel density] 1.019 Normal 1.005-1.030 [facility] Comment on above: Order Comment: Speci men Type: URINE SPECIMENOrdering Facility: [facility] Address: [address] [place] [address] Performed By: #### 6 30-4, 96191-9 ####[facility] LABCLIA [id number] [place] [address] [place] Urobilinogen Ql (U) 0.2 EU/dL Normal 0.2-1.0 EU/dL [facility] Comment on above: Order Comment: Speci men Type: URINE SPECIMENOrdering Facility: [facility] Address: [address] [place] [address] Performed By: #### 6 30-4, 93948-7 ####[facility] [id number] [place] [address] [place] WBC LM.HPF (Urine sed) [#/Area] /[HPF] Abnormal 0-5 /HPF [facility] Comment on above: Order Comment: Speci men Type: URINE SPECIMENOrdering Facility: [facility] Address: [address] [place] [address] Performed By: #### 6 30-4, 26689-6 ####[facility] LABIA [id number] [place] [address] [place] ALLIED HEALTHon 11-11-2024 ALLIED HEALTH Normal [facility] ALLIED HEALTH Normal [facility] ANTI PLT FACTOR 4 ABon 11-11 Heparin induced platelet IgG Marco Antonio (S) [Interp] Negative Normal Negative [facility] Comment on above: Order Comment: Speci men Type: BLOOD SPECIMENOrdering Facility: [facility] Address: [address] [place] [address] Result Comment: No a nti-platelet factor 4 IgG antibody is detected by ANDERS assay.Heparin-induced thrombocytopenia (HIT) is unlikely, but should be excluded based on clinical factors. Performed By: #### P LATF4 ####[facility] LABCLIA [id number] [address] STATES OF [facility] Platelet factor 4 Qn (PPP) 0.184 OD Normal <0.400 [facility] Comment on above: Order Comment: Speci men Type: BLOOD SPECIMENOrdering Facility: [facility] Address: [address] [place] [address] Result Comment: Not calculated Performed By: #### P LATF4 ####[facility] LABCLIA [id number] [address] [place] Albumin Fld-mCncon 5 Albumin (Body fld) [Mass/Vol] <0.2 Normal See Comment [facility] Comment on above: Order Comment: Speci men Type: FLUID SPECIMENOrdering Facility: [facility] Address: [address] [place] [address] Result Comment: Body Fluid Albumin may be [...] document C49A. Joe PA: Clinical Laboratory Standards [place]: 2007.2. Amy JACKSON. Serum to ascites albumin gradient. UpToDate. 2015. Accessed on November 15, 2015.This test was developed, and its performance characteristics determined by the [facility] Department of Pathology and Laboratory Medicine. It has not been cleared or approved by the FDA. The [facility] Department of Pathology and Laboratory Medicine is regulated under CLIA as qualified to perform high-complexity testing. This test is used for clinical purposes. It should not be regarded as investigational or for research. Performed By: #### 1 747-5, 1795-4, 50897-0, 2881-1 ####[facility] LABCLIA [id number] [place] [address] [place] Fluid Nom (Body fld) Abdomen Normal [facility] Comment on above: Order Comment: Speci men Type: FLUID SPECIMENOrdering Facility: [facility] Address: [address] [place] [address] Performed By: #### 1 747-5, 1795-4, 68585-1, 2881-1 ####[facility] LABCLIA [id number] [place] [address] [place] Am[facility] Fld[facility] Amylase (Body fld) [Catalytic activity/Vol] 14 U/L Normal See Comment [facility] Comment on above: Order Comment: Speci men Type: FLUID SPECIMENOrdering Facility: [facility] Address: [address] [place] [address] Result Comment: PLEU RAL FLUIDS:Amylase measurement in [...] document C49-A. PAULETTE Diaz: Clinical Laboratory Standards [place]; 2007.3. Kelby HDZH, John RC, Star DJ. Use of cyst fluid CEA, CA19-9, and amylase for evaluation of pancreatic lesions. Clinical Biochemistry. 2009;42:0992-8280.This test was developed, and its performance characteristics determined by the [facility] Department of Pathology and Laboratory Medicine. It has not been cleared or approved by the FDA. The [facility] Department of Pathology and Laboratory Medicine is regulated under CLIA as qualified to perform high-complexity testing. This test is used for clinical purposes. It should not be regarded as investigational or for research. Performed By: #### 1 747-5, 1795-4, 64389-5, 2881-1 ####[facility] LABCLIA [id number] [place] [id number] [place] Antithrombin Ag actual/philly l IA (PPP) [Relative mass conc]on 11-11-2024 Antithrombin Ag IA Qn (PPP) 32 % Low 80-120 [facility] Comment on above: Order Comment: Speci men Type: BLOOD SPECIMENOrdering Facility: [facility] Address: [address] [place] [address] Performed By: #### L [id number], HCOAG, 6303-2, 88053-8, 13337-9 ####[facility] LABCLIA [id number] [place] [address] [place] BODY FLUID CELL COUNTon 11-02 Clarity (Unsp spec) Clear Normal Clear [facility] Comment on above: Order Comment: Speci men Type: FLUID SPECIMENOrdering Facility: [facility] Address: [address] [place] [address] Performed By: #### C CBF, [id number] ####[facility] LABCLIA [id number] [place] [id number] [place] Color (Body fld) Colorless Normal Yellow [facility] Comment on above: Order Comment: Speci men Type: FLUID SPECIMENOrdering Facility: [facility] Address: [address] [place] [address] Performed By: #### C CBF, [id number] ####[facility] LABCLIA [id number] [place] [address] [place] RBC Manual cnt (Body fld) [#/Vol] 2000 /uL High <2000 [facility] Comment on above: Order Comment: Speci men Type: FLUID SPECIMENOrdering Facility: [facility] Address: [address] [place] [address] Performed By: #### C CBF, [id number] ####[facility] LABCLIA [id number] [place] [address] [place] Specimen source Nom (Body fld) Abdomen Normal [facility] Comment on above: Order Comment: Speci men Type: FLUID SPECIMENOrdering Facility: [facility] Address: [address] [place] [address] Performed By: #### C CBF, [id number] ####[facility] LABCLIA [id number] [place] [address] [place] [facility] WBC Manual cnt (Body fld) [#/Vol] 70 /uL Normal <1000 [facility] Comment on above: Order Comment: Speci men Type: FLUID SPECIMENOrdering Facility: [facility] Address: [address] [place] [address] Performed By: #### C CBF, [id number] ####[facility] LABCLIA [id number] [address] [place] Bacteria Bld Culton 11-12-19 25 Bacteria identified Cx Nom (Bld) CULTURE, BLOOD: No growth 5 days GRAM STAIN: This blood culture had less than the recommended 8 ml per bottle, which could decrease the sensitivity of the test. Normal [facility] Comment on above: Performed By: #### 6 00-7 ####[facility] LABCLIA [id number] [facility] [address] [place] Bacteria identified Cx Nom (Bld) CULTURE, BLOOD: No growth 5 days Normal [facility] Comment on above: Performed By: #### 6 00-7 ####[facility] LABCLIA [id number] [address] [address] [place] Bacteria Fld Culton 11-12-19 25 Bacteria identified Cx Nom (Body fld) CULTURE, BODY FLD: No growth GRAM STAIN: No organisms seen Many Polymorphonuclear leukocytes Gram stain performed on cytospun specimen. Gram stain from primary specimen Normal [facility] Comment on above: Performed By: #### 6 35-3, 611-4 ####[facility] LABCLIA [id number] [address] [address] [place] Bacteria Spec Anaerobe Culto n 11-11-2024 Bacteria identified Anaer cx Nom (Unsp spec) Negative Normal [facility] Comment on above: Performed By: #### 6 35-3, 611-4 ####[facility] LABCLIA [id number] [address] [place] [address] [place] Basic metabolic 2000 panelon 11-11-2024 Anion gap [Moles/Vol] 12 mmol/L Normal 8-[address] [facility] Comment on above: Order Comment: Speci men Type: BLOOD SPECIMENOrdering Facility: [facility] Address: [address] [place] [address] Performed By: #### 2 276-4, 79743-9, 94694-7, 78481-4, 2777-1, 09666-6 ####[facility] LABCLIA [id number] [address] [address] [place] Calcium [Mass/Vol] 9.1 mg/dL Normal 8.5-10.2 [facility] Comment on above: Order Comment: Speci men Type: BLOOD SPECIMENOrdering Facility: [facility] Address: [address] [place] [address] Performed By: #### 2 276-4, 75928-0, 85556-8, 31276-8, 7-1, 00913-5 ####[facility] LABCLIA [id number] [facility] [address] [address] [place] Chloride [Moles/Vol] 97 mmol/L Low 98-107 [facility] Comment on above: Order Comment: Speci men Type: BLOOD SPECIMENOrdering Facility: [facility] Address: [address] [place] [address] Performed By: #### 2 276-4, 19539-6, 17542-3, 36656-9, 2777-1, 35066-5 ####[facility] LABCLIA [id number] [address] [address] [place] CO2 [Moles/Vol] 14 mmol/L Low 22-30 [facility] Comment on above: Order Comment: Speci men Type: BLOOD SPECIMENOrdering Facility: [facility] Address: [address] [place] [address] Performed By: #### 2 276-4, 77378-3, 39137-4, 90425-5, 2777-1, 33577-9 ####[facility] LABCLIA [id number] [place] [address] [place] Creatinine [Mass/Vol] 1.35 mg/dL High 0.73-1.[address] [facility] Comment on above: Order Comment: Speci men Type: BLOOD SPECIMENOrdering Facility: [facility] Address: [address] [place] [address] Performed By: #### 2 276-4, 93598-1, 93600-8, 58501-8, 2777-1, 90400-3 ####[facility] LABCLIA [id number] [address] [address] [place] Creatinine and Glomerular filtration rate.predicted panel (S/P/Bld) 61 mL/min/1.73m??? Normal >=60 [facility] Comment on above: Order Comment: Speci men Type: BLOOD SPECIMENOrdering Facility: [facility] Address: [address] [place] [address] Result Comment: Patric mated Glomerular Filtration Rate [...] actual GFR. Performed By: #### 2 276-4, 43947-0, 29719-5, 33302-3, 7-1, 17544-9 ####[facility] LABCLIA [id number] [address] [address] [place] Glucose [Mass/Vol] 292 mg/dL High 74-99 [facility] Comment on above: Order Comment: Ezekiel ramirez Type: BLOOD SPECIMENOrdering Facility: [facility] Address: [address] [place] [address] Result Comment: The [place] [employer] Association (ADA) provides guidance for cutoff [...] Standards of Medical Care in Diabetes 2016, [place] [employer]. Diabetes Care. 2016.39(Suppl 1). Performed By: #### 2 276-4, 16037-3, 33119-8, 10273-1, 2777-1, 96462-8 ####[facility] LABCLIA [id number] [address] [address] [place] Potassium [Moles/Vol] 3.6 mmol/L Low 3.7-5.[address] [facility] Comment on above: Order Comment: Ezekiel ramirez Type: BLOOD SPECIMENOrdering Facility: [facility] Address: [address] [place], [place] [address] Performed By: #### 2 276-4, 84087-1, 46577-6, 47667-9, 2777-1, ####[facility] LABCLIA [id number] [address] [address] [place] Sodium [Moles/Vol] 123 mmol/L Low 136-144 [facility] Comment on above: Order Comment: Speci men Type: BLOOD SPECIMENOrdering Facility: [facility] Address: [address] [place] [address] Performed By: #### 2 276-4, 55817-2, 56312-0, 54475-7, 2777-1, ####[facility] LABCLIA [id number] [address] [address] [place] Urea nitrogen [Mass/Vol] 22 mg/dL Normal 9-24 [facility] Comment on above: Order Comment: Speci men Type: BLOOD SPECIMENOrdering Facility: [facility] Address: [address] [place] [address] Performed By: #### 2 276-4, 39661-2, 23197-2, 59656-1, 2776-1, ####[facility] LABIA [id number] [address] [address] [place] CARDIOLIPIN IGG ABSon 2024 Cardiolipin IgG IA Qn (S) <9.0 Normal <15.0 [facility] Comment on above: Order Comment: Speci [facility] Type: BLOOD SPECIMENOrdering Facility: [facility] Address: [address] [place] [address] Result Comment: <15 GPL [id number] GPL Indeterminate>20 GPL PositiveThe following results were obtained with the [employer] QU[employer]A [employer]ite TEZ IgG III ANDERS. Cardiolipin IgG values obtained with the different manufacturers' assay methods may not be used interchangeably. The magnitude of the reported IgG levels cannot be correlated to an endpoint titer. Performed By: #### 5 076-5, MELVIN ARMENTA ####[facility] LABCLIA [id number] [address] [place] CARDIOLIPIN IGM ABSon 2024 Cardiolipin IgM IA Qn (S) <9.0 Normal <12.5 [facility] Comment on above: Order Comment: Speci men Type: BLOOD SPECIMENOrdering Facility: [facility] Address: [address] [place] [address] Result Comment: <12. 5 MPL [id number] MPL Indeterminate>20 MPL PositiveThe following results were obtained with the [employer] TEZ IgM III ANDERS. Cardiolipin IgM values obtained with the different manufacturers' assay methods may not be used interchangeably. The magnitude of the reported IgM levels cannot be correlated to an endpoint titer.??? Performed By: #### 5 076-5, MELVIN ARMENTA ####[facility] LABCLIA [id number] [address] [place] CASE MANAGEMon 11-11-2024 CASE MANAGEM Normal [facility] CBC W Auto Differential pane l (Bld)on 11-11-2024 Basophils (Bld) [#/Vol] 0.04 10*3/uL Normal <0.11 [facility] Comment on above: Order Comment: Speci men Type: BLOOD SPECIMENOrdering Facility: [facility] Address: [address] [place] [address] Performed By: #### I PFR, 45098-2, 56158-9 ####[facility] LABCLIA [id number] [place] [id number] [place] Basophils/100 WBC (Bld) 0.4 % Normal C [facility] Comment on above: Order Comment: Speci men Type: BLOOD SPECIMENOrdering Facility: [facility] Address: [address] [place] [address] Performed By: #### I PFR, 69087-0, 31116-9 ####[facility] LABCLIA [id number] [place] [address] [place] Differential cell count method Nom (Bld) Auto Normal [facility] Comment on above: Order Comment: Speci men Type: BLOOD SPECIMENOrdering Facility: [facility] Address: [address] [place] [address] Performed By: #### I PFR, 35780-1, 00349-8 ####[facility] LABCLIA [id number] [address], [place] [address] [place] Eosinophils (Bld) [#/Vol] 0.35 10*3/uL Normal <0.46 [facility] Comment on above: Order Comment: Speci men Type: BLOOD SPECIMENOrdering Facility: [facility] Address: [address] [place] [address] Performed By: #### I PFR, 39980-8, 51993-3 ####[facility] LABIA [id number] [place] [address] [place] Eosinophils/100 WBC (Bld) 3.4 % Normal [facility] Comment on above: Order Comment: Speci men Type: BLOOD SPECIMENOrdering Facility: [facility] Address: [address] [place] [address] Performed By: #### I PFR, 43209-2, 13927-8 ####[facility] LABIA [id number] [address], [place] [address] [place] Erythrocyte distribution width (RBC) [Ratio] 17.4 % High 11.5-15.0 [facility] Comment on above: Order Comment: Speci men Type: BLOOD SPECIMENOrdering Facility: [facility] Address: [address] [place] [address] Performed By: #### I PFR, 47526-3, 30965-9 ####[facility] LABCLIA [id number] [address] [place] [address] [place] Hematocrit (Bld) [Volume fraction] 24.6 % Low 39.0-51.0 [facility] Comment on above: Order Comment: Speci men Type: BLOOD SPECIMENOrdering Facility: [facility] Address: [address] [place] [address] Performed By: #### I PFR, 78932-1, 05902-0 ####[facility] LABCLIA [id number] [place] [address] [place] Hemoglobin (Bld) [Mass/Vol] 8.4 g/dL Low 13.0-17.0 [facility] Comment on above: Order Comment: Speci men Type: BLOOD SPECIMENOrdering Facility: [facility] Address: [address] [place] [address] Performed By: #### I PFR, 54413-9, 19549-8 ####[facility] LABCLIA [id number] [place] [address] [place] Immature granulocytes (Bld) [#/Vol] 0.08 10*3/uL Normal <0.10 [facility] Comment on above: Order Comment: Speci men Type: BLOOD SPECIMENOrdering Facility: [facility] Address: [address] [place] [address] Performed By: #### I PFR, 35726-8, 08706-5 ####[facility] LABCLIA [id number] [place] [address] [place] Immature granulocytes/100 WBC (Bld) 0.8 % Normal [facility] Comment on above: Order Comment: Speci men Type: BLOOD SPECIMENOrdering Facility: [facility] Address: [address] [place] [address] Performed By: #### I PFR, 21072-4, 24054-7 ####[facility] LABCLIA [id number] [place] [id number] [place] Lymphocytes (Bld) [#/Vol] 0.99 10*3/uL Low 1.00-4.00 [facility] Comment on above: Order Comment: Speci men Type: BLOOD SPECIMENOrdering Facility: [facility] Address: [address] [place] [address] Performed By: #### I PFR, 60121-9, ####[facility] LABCLIA [id number] [place] [address] [place] Lymphocytes/100 WBC (Bld) 9.5 % Normal [facility] Comment on above: Order Comment: Speci men Type: BLOOD SPECIMENOrdering Facility: [facility] Address: [address] [place] [address] Performed By: #### I PFR, 16378-3, ####[facility] LABIA [id number] [place] [address] [place] MCH (RBC) [Entitic mass] 31.9 pg Normal 26.0-34.0 [facility] Comment on above: Order Comment: Speci men Type: BLOOD SPECIMENOrdering Facility: [facility] Address: [address] [place] [address] Performed By: #### I PFR, 30827-0, ####[facility] LABIA [id number] [place] [address] [place] MCHC (RBC) [Mass/Vol] 34.1 g/dL Normal 30.5-36.[address] [facility] Comment on above: Order Comment: Speci men Type: BLOOD SPECIMENOrdering Facility: [facility] Address: [address] [place], [place] [address] Performed By: #### I PFR, 10110-3, 16349-6 ####[facility] LABCLIA [id number] [address] [address] [place] MCV (RBC) [Entitic vol] 93.5 fL Normal 80.0-100.0 [facility] Comment on above: Order Comment: Speci men Type: BLOOD SPECIMENOrdering Facility: [facility] Address: [address] [place] [address] Performed By: #### I PFR, 85980-8, 62474-2 ####[facility] LABCLIA [id number] [place] [id number] [place] Monocytes (Bld) [#/Vol] 0.97 10*3/uL High <0.87 [facility] Comment on above: Order Comment: Speci men Type: BLOOD SPECIMENOrdering Facility: [facility] Address: [address] [place] [address] Performed By: #### I PFR, 23625-0, 53277-1 ####[facility] LABCLIA [id number] [place] [address] [place] Monocytes/100 WBC (Bld) 9.3 % Normal [facility] Comment on above: Order Comment: Speci men Type: BLOOD SPECIMENOrdering Facility: [facility] Address: [address] [place] [address] Performed By: #### I PFR, 95739-2, 43790-7 ####[facility] LABCLIA [id number] [place] [address] [place] Neutrophils (Bld) [#/Vol] 8.00 10*3/uL High 1.45-7.50 [facility] Comment on above: Order Comment: Speci men Type: BLOOD SPECIMENOrdering Facility: [facility] Address: [address] [place] [address] Performed By: #### I PFR, 25645-0, 32048-1 ####[facility] LABCLIA [id number] [place] [address] [place] Neutrophils/100 WBC (Bld) 76.6 % Normal [facility] Comment on above: Order Comment: Speci men Type: BLOOD SPECIMENOrdering Facility: [facility] Address: [address] [place] [address] Performed By: #### I PFR, 60692-5, 03905-6 ####[facility] LABIA [id number] [address] [address] [place] Nucleated RBC (Bld) [#/Vol] 10*3/uL Normal <0.01 [facility] Comment on above: Order Comment: Speci men Type: BLOOD SPECIMENOrdering Facility: [facility] Address: [address] [place] [address] Performed By: #### I PFR, 30812-3, 57962-4 ####[facility] [id number] [place] [id number] [place] Nucleated RBC/100 WBC (Bld) [Ratio] 0.0 /100 WBC Normal [facility] Comment on above: Order Comment: Speci men Type: BLOOD SPECIMENOrdering Facility: [facility] Address: [address] [place] [address] Performed By: #### I PFR, 44002-4, 23818-9 ####[facility] [id number] [place] [id number] [place] Platelet mean volume (Bld) [Entitic vol] 11.5 fL Normal 9.0-12.7 [facility] Comment on above: Order Comment: Speci men Type: BLOOD SPECIMENOrdering Facility: [facility] Address: [address] [place] [address] Performed By: #### I PFR, 13961-3, 38688-6 ####[facility] [id number] [address] [address] [place] Platelets (Bld) [#/Vol] 43 10*3/uL Low 150-400 C [facility] Comment on above: Order Comment: Speci men Type: BLOOD SPECIMENOrdering Facility: [facility] Address: [address] [place] [address] Performed By: #### I PFR, 38230-1, 03856-6 ####[facility] LABCLIA [id number] [place] [id number] [place] RBC (Bld) [#/Vol] 2.63 10*6/uL Low 4.20-6.00 [facility] Comment on above: Order Comment: Speci men Type: BLOOD SPECIMENOrdering Facility: [facility] Address: [address] [place] [address] Performed By: #### I PFR, 10622-0, 73921-4 ####[facility] LABCLIA [id number] [place] [address] [place] WBC (Bld) [#/Vol] 10.43 10*3/uL Normal 3.70-11.00 [facility] Comment on above: Order Comment: Speci men Type: BLOOD SPECIMENOrdering Facility: [facility] Address: [address] [place] [address] Performed By: #### I PFR, 86748-4, 98008-3 ####[facility] LABIA [id number] [place] [address] [place] Basophils (Bld) [#/Vol] 0.06 10*3/uL Normal <0.11 [facility] Comment on above: Order Comment: Speci men Type: BLOOD SPECIMENOrdering Facility: [facility] Address: [address] [place] [address] Performed By: #### 5 5454-3, 09351-9 ####[facility] LABCLIA [id number] [place] [id number] [place] Basophils/100 WBC (Bld) 0.4 % Normal [facility] Comment on above: Order Comment: Speci men Type: BLOOD SPECIMENOrdering Facility: [facility] Address: [address] [place] [address] Performed By: #### 5 5454-3, 29868-5 ####[facility] LABCLIA [id number] [place] [address] [place] Differential cell count method Nom (Bld) Auto Normal [facility] Comment on above: Order Comment: Speci men Type: BLOOD SPECIMENOrdering Facility: [facility] Address: [address] [place] [address] Performed By: #### 5 5454-3, 90097-3 ####[facility] LABCLIA [id number] [place] [address] [place] Eosinophils (Bld) [#/Vol] 0.40 10*3/uL Normal <0.46 [facility] Comment on above: Order Comment: Speci men Type: BLOOD SPECIMENOrdering Facility: [facility] Address: [address] [place] [address] Performed By: #### 5 5454-3, 68160-4 ####[facility] LABIA [id number] [place] [address] [place] Eosinophils/100 WBC (Bld) 2.5 % Normal [facility] Comment on above: Order Comment: Speci men Type: BLOOD SPECIMENOrdering Facility: [facility] Address: [address] [place] [address] Performed By: #### 5 5454-3, 20418-9 ####[facility] [facility] LABCL[facility] [id number] [place] [address] [place] Erythrocyte distribution width (RBC) [Ratio] 18.0 % High 11.5-15.0 [facility] Comment on above: Order Comment: Speci men Type: BLOOD SPECIMENOrdering Facility: [facility] Address: [address] [place] [address] Performed By: #### 5 5454-3, 50678-5 ####[facility] LABCLIA [id number] [place] [id number] [place] Hematocrit (Bld) [Volume fraction] 30.4 % Low 39.0-51.0 [facility] Comment on above: Order Comment: Speci men Type: BLOOD SPECIMENOrdering Facility: [facility] Address: [address] [place] [address] Performed By: #### 5 5454-3, 35617-4 ####[facility] LABCLIA [id number] [place] [address] [place] Hemoglobin (Bld) [Mass/Vol] 10.2 g/dL Low 13.0-17.0 [facility] Comment on above: Order Comment: Speci men Type: BLOOD SPECIMENOrdering Facility: [facility] Address: [address] [place] [address] Performed By: #### 5 5454-3, 32494-9 ####[facility] LABCLIA [id number] [place] [address] [place] Immature granulocytes (Bld) [#/Vol] 0.18 10*3/uL High <0.10 [facility] Comment on above: Order Comment: Speci men Type: BLOOD SPECIMENOrdering Facility: [facility] Address: [address] [place] [address] Performed By: #### 5 5454-3, 46593-6 ####[facility] LABCLIA [id number] [place] [address] [place] Immature granulocytes/100 WBC (Bld) 1.1 % Normal [facility] Comment on above: Order Comment: Speci men Type: BLOOD SPECIMENOrdering Facility: [facility] Address: [address] [place] [address] Performed By: #### 5 5454-3, 07749-7 ####[facility] LABCLIA [id number] [place] [address] [place] Lymphocytes (Bld) [#/Vol] 1.19 10*3/uL Normal 1.00-4.00 [facility] Comment on above: Order Comment: Speci men Type: BLOOD SPECIMENOrdering Facility: [facility] Address: [address] [place] [address] Performed By: #### 5 5454-3, 12870-2 ####[facility] LABIA [id number] [place] [address] [place] Lymphocytes/100 WBC (Bld) 7.6 % Normal [facility] Comment on above: Order Comment: Speci men Type: BLOOD SPECIMENOrdering Facility: [facility] Address: [address] [place] [address] Performed By: #### 5 5454-3, 44843-3 ####[facility] LABIA [id number] [place] [address] [place] MCH (RBC) [Entitic mass] 31.3 pg Normal 26.0-34.0 [facility] Comment on above: Order Comment: Speci men Type: BLOOD SPECIMENOrdering Facility: [facility] Address: [address] [place] [address] Performed By: #### 5 5454-3, 50123-4 ####[facility] LABIA [id number] [address] [place] MCHC (RBC) [Mass/Vol] 33.6 g/dL Normal 30.5-36.[address] [facility] Comment on above: Order Comment: Speci men Type: BLOOD SPECIMENOrdering Facility: [facility] Address: [address] [place] [address] Performed By: #### 5 5454-3, 53877-8 ####[facility] LABIA [id number] [place] [address] [place] MCV (RBC) [Entitic vol] 93.3 fL Normal 80.0-100.0 [facility] Comment on above: Order Comment: Speci men Type: BLOOD SPECIMENOrdering Facility: [facility] Address: [address] [place] [address] Performed By: #### 5 5454-3, 44514-1 ####[facility] LABCLIA [id number] [address] [place] [address] [place] Monocytes (Bld) [#/Vol] 1.36 10*3/uL High <0.87 [facility] Comment on above: Order Comment: Speci men Type: BLOOD SPECIMENOrdering Facility: [facility] Address: [address] [place] [address] Performed By: #### 5 5454-3, 45470-4 ####[facility] LABCLIA [id number] [address], [place] [address] [place] Monocytes/100 WBC (Bld) 8.6 % Normal [facility] Comment on above: Order Comment: Speci men Type: BLOOD SPECIMENOrdering Facility: [facility] Address: [address] [place] [address] Performed By: #### 5 5454-3, 19167-7 ####[facility] LABCLIA [id number] [address] [place] [address] [place] Neutrophils (Bld) [#/Vol] 12.55 10*3/uL High 1.45-7.50 [facility] Comment on above: Order Comment: Speci men Type: BLOOD SPECIMENOrdering Facility: [facility] Address: [address] [place] [address] Performed By: #### 5 5454-3, 70108-1 ####[facility] LABCLIA [id number] [place] [address] [place] Neutrophils/100 WBC (Bld) 79.8 % Normal [facility] Comment on above: Order Comment: Speci men Type: BLOOD SPECIMENOrdering Facility: [facility] Address: [address] [place] [address] Performed By: #### 5 5454-3, 34679-2 ####[facility] LABCLIA [id number] [place] [address] [place] Nucleated RBC (Bld) [#/Vol] 10*3/uL Normal <0.01 [facility] Comment on above: Order Comment: Speci men Type: BLOOD SPECIMENOrdering Facility: [facility] Address: [address] [place] [address] Performed By: #### 5 5454-3, 85762-6 ####[facility] LABCLIA [id number] [place] [address] [place] Nucleated RBC/100 WBC (Bld) [Ratio] 0.0 /100 WBC Normal [facility] Comment on above: Order Comment: Speci men Type: BLOOD SPECIMENOrdering Facility: [facility] Address: [address] [place] [address] Performed By: #### 5 5454-3, 43983-9 ####[facility] LABIA [id number] [place] [address] [place] Platelet mean volume (Bld) [Entitic vol] 12.1 fL Normal 9.0-12.7 [facility] Comment on above: Order Comment: Speci men Type: BLOOD SPECIMENOrdering Facility: [facility] Address: [address] [place] [address] Performed By: #### 5 5454-3, 75818-8 ####[facility] LABIA [id number] [place] [address] [place] Platelets (Bld) [#/Vol] 52 10*3/uL Low 150-400 [facility] Comment on above: Order Comment: Speci men Type: BLOOD SPECIMENOrdering Facility: [facility] Address: [address] [place] [address] Result Comment: Resu lts checked and verified.No clot detected. Performed By: #### 5 5454-3, 88356-2 ####[facility] LABCLIA [id number] [place] [address] [place] RBC (Bld) [#/Vol] 3.26 10*6/uL Low 4.20-6.00 [facility] Comment on above: Order Comment: Speci men Type: BLOOD SPECIMENOrdering Facility: [facility] Address: [address] [place] [address] Performed By: #### 5 5454-3, 92810-3 ####[facility] LABCLIA [id number] [place] [address] [place] WBC (Bld) [#/Vol] 15.74 10*3/uL High 3.70-11.00 [facility] Comment on above: Order Comment: Speci men Type: BLOOD SPECIMENOrdering Facility: [facility] Address: [address] [place] [address] Performed By: #### 5 5454-3, 07193-1 ####[facility] [id number] [address] [place] CEA SerPl-mCncon 11-11-2024 Carcinoembryonic Ag [Mass/Vol] 13.0 ng/mL High <=2.9 [facility] Comment on above: Order Comment: Speci men Type: BLOOD SPECIMENOrdering Facility: [facility] Address: [address] [place] [address] Result Comment: Carc inoembryonic antigen test is used as an aid in monitoring response to treatment or recurrence in patients with established colorectal, breast, lung, prostatic, pancreatic, and ovarian carcinomas. Clinical correlation is required.The Carcinoembryonic antigen test was performed using the [employer] Unicel DXI paramagnetic particle chemiluminescent immunoassay method. Results obtained with different assay methods or kits cannot be used interchangeably. Performed By: #### 2 039-6, 44786-8, 2532-0 ####[facility] LABCLIA [id number] [place] [address] [place] COAG CORE PANEL BLDon 2024 aPTT Coag (PPP) [Time] 41.3 s High 23.0-32.4 [facility] Comment on above: Order Comment: Speci james Type: BLOOD SPECIMENOrdering Facility: [facility] Address: [address] [place] [address] Performed By: #### C ORPNL ####[facility] LABIA [id number] [place] [address] [place] Fibrinogen Coag (PPP) [Mass/Vol] 88 mg/dL Low 200-400 [facility] Comment on above: Order Comment: Speci men Type: BLOOD SPECIMENOrdering Facility: [facility] Address: [address] [place] [address] Result Comment: Samp le checked for clot.Result rechecked. Performed By: #### C ORPNL ####[facility] [id number] [place] [address] [place] INR Coag (PPP) [Relative time] 2.1 {INR} High 0.9-1.3 [facility] Comment on above: Order Comment: Speci james Type: BLOOD SPECIMENOrdering Facility: [facility] Address: [address] [place] [address] Result Comment: Sarah min K Antagonist (VKA) Therapeutic Range: INR 2 to 3 (Target INR of 2.5)Note: For patients treated with VKA drugs, such as warfarin, the [employer] 2012 Guideline recommends [...] al. Chest 2012, 141:7S-47SNishbethel RA, et al. [facility] 2017, 70: 252-289 Performed By: #### C ORPNL ####[facility] LABCLIA [id number] [place] [address] [place] PT Coag (PPP) [Time] 21.8 s High 9.7-13.0 [facility] Comment on above: Order Comment: Speci men Type: BLOOD SPECIMENOrdering Facility: [facility] Address: [address] [place] [address] Performed By: #### C ORPNL ####[facility] LABCLIA [id number] [place] [address] [place] CONSULTon 11-11-2024 CONSULT Normal [facility] CONSULT Normal [facility] CRP SerPl-mCncon 11-11-2024 CRP [Mass/Vol] 0.5 mg/dL Normal <0.9 [facility] Comment on above: Order Comment: Speci men Type: BLOOD SPECIMENOrdering Facility: [facility] Address: [address] [place] [address] Performed By: #### D ASHLEY, 1986-12 ####[facility] LABIA [id number] [place] [address] [place] CYTOLOGY NON-GYNon 5 AP DISCLAIMER Normal [facility] Comment on above: Order Comment: Speci men Type: FLUID SPECIMENOrdering Facility: [facility] Address: [address] [place] [address] Result Comment: Shellie pugh Developed Test (LDT) Disclaimer:Performance characteristics of immunohistochemical, immunofluorescent, and chromogenic in-situ hybridization tests have been determined by the performing laboratory within [facility]'s Thai Torres Pathology and Laboratory Medicine Department ([facility], [facility], [facility], [facility], [facility], [facility], or [facility]) in a manner consistent with [...] appropriately. Performed By: #### C YTONON ####[facility] LABCLIA [id number] [place] [address] [place] CASE REPORT Normal [facility] Comment on above: Order Comment: Speci men Type: FLUID SPECIMENOrdering Facility: [facility] Address: [address] [place] [address] Result Comment: [facility] Cytology Report Case: [id number] Provider: Yaritza Juarez, Collected: 11/11/2024 05:14 PM BILINGUAL TEACHER ASSISTANT.CNPOrdering Location: [place] [address] Received: 11/11/2024 08:30 PMPathologist: Sameer Fournier MDSpecimen: Abdomen Performed By: #### C YTONON ####[facility] LABCLIA [id number] [place] [address] [place] CLINICAL HISTORY paracentesis fluid Normal [facility] Comment on above: Order Comment: Speci men Type: FLUID SPECIMENOrdering Facility: [facility] Address: [address] [place] [address] Performed By: #### C YTONON ####[facility] LABCLIA [id number] [address] FINAL DIAGNOSIS Normal [facility] Comment on above: Order Comment: Speci men Type: FLUID SPECIMENOrdering Facility: [facility] Address: [address] [place] [address] Result Comment: A - Abdomen, Fluid Negative for malignant cells.The following cell blocks were associated with this case:A1\X09\Cell Block, Alcohol Fixed\X09\ at 1034 EDT Performed By: #### C YTONON ####[facility] LABCLIA [id number] [place] [id number] [facility] [place] FINAL PERFORMING LAB Normal [facility] Comment on above: Order Comment: Speci men Type: FLUID SPECIMENOrdering Facility: [facility] Address: [address] [place] [address] Result Comment: Tech nical component, office spec screening performed at: [facility], [address] [place] [address] CLIA: [id number] interpretation performed at: [facility], [address] [place] [address] CLIA# [id number] Director: Titi Voss MD Performed By: #### C YTONON ####[facility] LABCLIA [id number] [place] [address] [place] GROSS DESCRIPTION A. Abdomen Normal [facility] Comment on above: Order Comment: Speci men Type: FLUID SPECIMENOrdering Facility: [facility] Address: [address] [place] [address] Result Comment: 1450 cc opaque lexis fluid . ThinPrep and Cell Block prepared. Performed By: #### C YTONON ####[facility] LABCLIA [id number] [place] [address] [place] Cancer Ag19-9 SerPl-aCncon 0 11-11-2024 Cancer Ag 19-9 Qn <2.0 Normal <36.0 [facility] Comment on above: Order Comment: Speci men Type: BLOOD SPECIMENOrdering Facility: [facility] Address: [address] [place] [address] Result Comment: Rust er antigen 19-9 test is used as an aid in monitoring response to treatment or recurrence in patients with established pancreatic, hepatobiliary, or gastrointestinal malignancies. Clinical correlation is required.The CA 19-9 Antigen test was performed using the [employer] Unicel DXI paramagnetic particle chemiluminescent immunoassay method. Results obtained with different assay methods or kits cannot be used interchangeably. Performed By: #### 2 039-6, 37986-4, 2532-0 ####[facility] LABCLIA [id number] [place] [address] [place] Cardiolipin IgA Ser IA-aCnco n 11-11-2024 Cardiolipin IgA IA Qn (S) 9.7 [APL'U] Normal <12.0 [facility] Comment on above: Order Comment: Speci men Type: BLOOD SPECIMENOrdering Facility: [facility] Address: [address] [place] [address] Result Comment: <12 APL Ryasoryu53-67 APL Indeterminate>20 APL PositiveThe following results were obtained with the Oris4[employer] Lite TEZ IgA III ANDERS. Cardiolipin IgA values obtained with the different manufacturers' assay methods may not be used interchangeably. The magnitude of the reported IgA levels cannot be correlated to an endpoint titer. Performed By: #### 5 076-5, MELVIN ARMENTA ####[facility] LABIA [id number] [place] [address] [place] DIRECT BILIRUBIN BLOODon Bilirubin.conjugated [Mass/Vol] 1.1 mg/dL High <0.3 [facility] Comment on above: Order Comment: Speci men Type: BLOOD SPECIMENOrdering Facility: [facility] Address: [address] [place] [address] Performed By: #### D ASHLEY, 1986-12 ####[facility] LABIA [id number] [place] [address] [place] ECG COMPLETEon 11-11-2024 ECG COMPLETE Normal [facility] AAK16zp 11-11-2024 ECG01 Normal [facility] Ferritin SerPl-mCncon 2024 Ferritin [Mass/Vol] 82.4 ng/mL Normal 30.3-565.7 [facility] Comment on above: Order Comment: Speci men Type: BLOOD SPECIMENOrdering Facility: [facility] Address: [address] [place] [address] Performed By: #### 2 276-4, 42108-2, 66585-4, 81779-1, 2777-1, 34062-3 ####[facility] LABCLIA [id number] [address] [address] [place] Fibrinogen PPP-mCncon 2024 Fibrinogen Coag (PPP) [Mass/Vol] 90 mg/dL Low 200-400 [facility] Comment on above: Order Comment: Speci men Type: BLOOD SPECIMENOrdering Facility: [facility] Address: [address] [place] [address] Result Comment: [facility] clot.Result rechecked. Performed By: #### 3 255-7, 94204-2 ####[facility] LABCLIA [id number] [place] [address] [place] HISTORY PHYSICALon HISTORY PHYSICAL Normal [facility] HYPERCOAG PANELon 11-11-2024 Activated protein C resistance Coag (PPP) [Time ratio] 2.10 Ratio Normal >1.96 [facility] Comment on above: Order Comment: Speci men Type: BLOOD SPECIMENOrdering Facility: [facility] Address: [address] [place] [address] Performed By: #### L [id number], HCOAG, 6303-2, 49510-6, 08622-5 ####[facility] LABCLIA [id number] [place] [address] [place] Antithrombin actual/normal Chromogenic method (PPP) [Rel catalytic activity/Vol] 30 % Low 84-138 [facility] Comment on above: Order Comment: Speci men Type: BLOOD SPECIMENOrdering Facility: [facility] Address: [address] [place] [address] Performed By: #### L [id number], HCOAG, 6303-2, 08407-9, 70792-8 ####[facility] LABCLIA [id number] [address] [address] [place] aPTT Coag (Bld) [Time] 47.9 s High 24.0-35.1 [facility] Comment on above: Order Comment: Speci men Type: BLOOD SPECIMENOrdering Facility: [facility] Address: [address] [place] [address] Performed By: #### L [id number], HCOAG, 6303-2, 28032-4, 95861-6 ####[facility] LABCLIA [id number] [place] [address] [place] aPTT W excess hexagonal phase phospholipid Coag (PPP) [Time] 36.5 seconds Normal 34.0-51.8 [facility] Comment on above: Order Comment: Speci men Type: BLOOD SPECIMENOrdering Facility: [facility] Address: [address] [place] [address] Performed By: #### L [id number], HCOAG, 6303-2, 99231-5, 88770-7 ####[facility] LABIA [id number] [place] [address] [place] aPTT-LA w 1:1 PNP Coag (PPP) [Time] 32.5 seconds Normal <33.2 [facility] Comment on above: Order Comment: Speci men Type: BLOOD SPECIMENOrdering Facility: [facility] Address: [address] [place] [address] Result Comment: This test was developed, and its performance characteristics determined by the [facility] Department of Pathology and Laboratory Medicine. It has not been cleared or approved by the FDA. The [facility] Department of Pathology and Laboratory Medicine is regulated under CLIA as qualified to perform high-complexity testing. This test is used for clinical purposes. It should not be regarded as investigational or for research. Performed By: #### L [id number], HCOAG, 6303-2, 05655-4, 67298-7 ####[facility] LABCLIA [id number] [place] [address] [place] Coagulation factor VIII activity actual/normal Coag (PPP) [Relative time] 332 % High 50-173 [facility] Comment on above: Order Comment: Speci men Type: BLOOD SPECIMENOrdering Facility: [facility] Address: [address] [place] [address] Performed By: #### L [id number], HCOAG, 6303-2, 98320-3, 04644-6 ####[facility] LABCLIA [id number] [place] [address] [place] Coagulation factor X activated act Coag Qn (PPP) <0.10 Normal <0.10 [facility] Comment on above: Order Comment: Speci men Type: BLOOD SPECIMENOrdering Facility: [facility] Address: [address] [place] [address] Result Comment: This test was developed, and its performance characteristics determined by the [facility] Department of Pathology and Laboratory Medicine. It has not been cleared or approved by the FDA. The [facility] Department of Pathology and Laboratory Medicine is regulated under CLIA as qualified to perform high-complexity testing. This test is used for clinical purposes. It should not be regarded as investigational or for research. Performed By: #### L [id number], HCOAG, 6303-2, 93142-3, 84175-7 ####[facility] LABIA [id number] [place] [address] [place] Delta dRVVT Coag (PPP) [Time diff] 2.2 delta seconds Normal <7.1 [facility] Comment on above: Order Comment: Speci men Type: BLOOD SPECIMENOrdering Facility: [facility] Address: [address] [place] [address] Performed By: #### L [id number], HCOAG, 6303-2, 57668-9, 05010-3 ####[facility] LABIA [id number] [place] [address] [place] dRVVT W excess hexagonal phase phospholipid actual/normal Coag (PPP) [Relative time] 34.3 seconds Normal 34.2-47.9 [facility] Comment on above: Order Comment: Speci men Type: BLOOD SPECIMENOrdering Facility: [facility] Address: [address] [place] [address] Performed By: #### L [id number], HCOAG, 6303-2, 50942-4, 88166-6 ####[facility] LABCLIA [id number] [place] [address] [place] Protein C actual/normal Coag (PPP) [Relative time] 24 % Low 76-147 [facility] Comment on above: Order Comment: Speci men Type: BLOOD SPECIMENOrdering Facility: [facility] Address: [address] [place] [address] Performed By: #### L [id number], HCOAG, 6303-2, 60449-2, 31875-4 ####[facility] LABIA [id number] [place] [address] [place] Protein S actual/normal Coag (PPP) [Relative time] 28 % Low 59-152 [facility] Comment on above: Order Comment: Speci men Type: BLOOD SPECIMENOrdering Facility: [facility] Address: [address] [place] [address] Performed By: #### L [id number], HCOAG, 6303-2, 08952-8, 15135-3 ####[facility] LABIA [id number] [place] [address] [place] Protein S Free Ag actual/normal [place] (PPP) [Relative mass conc] 45 % Low 55-148 [facility] Comment on above: Order Comment: Speci men Type: BLOOD SPECIMENOrdering Facility: [facility] Address: [address] [place] [address] Performed By: #### L [id number], HCOAG, 6303-2, 09568-6, 71279-3 ####[facility] LABIA [id number] [place] [id number] [place] Thrombin time Coag (PPP) [Time] 20.0 seconds High <18.6 [facility] Comment on above: Order Comment: Ezekiel ramirez Type: BLOOD SPECIMENOrdering Facility: [facility] Address: [address] [place] [address] Performed By: #### L [id number], HCOAG, 6303-2, 66875-0, 08767-3 ####[facility] LABCLIA [id number] [facility] [place] [address] [place] HYPERCOAG PANEL INTERPon INTERPRETATION (HYPERCOAG) Normal [facility] Comment on above: Order Comment: Ezekiel ramirez Type: BLOOD SPECIMENOrdering Facility: [facility] Address: [address] [address] Result Comment: Amisha gallegos - see comment [...] negative for the c.*97G>A variant (legacy name [id number]) in the 3' untranslated region of the [...] phase phospholipid neutralization. Performed By: #### L [id number], HCOAG, 6303-2, 15563-6, 63493-6 ####[facility] LABCLIA [id number] [place] [address] [place] Pathologist name Reviewed by Julia Howell M.D., Ph.D Normal [facility] Comment on above: Order Comment: Speci men Type: BLOOD SPECIMENOrdering Facility: [facility] Address: [address] [place] [address] Performed By: #### L [id number], HCOAG, 6303-2, 59121-5, 47254-1 ####[facility] LABCLIA [id number] [address] [address] [place] Haptoglob SerPl-mCncon 11-11 Haptoglobin [Mass/Vol] 15 mg/dL Low 31-238 Cl [facility] Comment on above: Order Comment: Ezekiel ramirez Type: BLOOD SPECIMENOrdering Facility: [facility] Address: [address] [place] [address] Performed By: #### 2 4362-6, 4542-7 ####[facility] LABIA [id number] [place] [address] [place] HbA1c (Bld)on 11-11-2024 Average glucose Estimated from glycated hemoglobin (Bld) [Mass/Vol] 154 mg/dL Normal [facility] Comment on above: Order Comment: [facility] Type: BLOOD SPECIMENOrdering Facility: [facility] Address: [address] [place] [address] Result Comment: eAG: (Estimated average glucose) is a calculated value from HgbA1c and is sales representative canvas products of the average blood glucose level in the last 2-3 month period. Performed By: #### 5 5454-3, 08939-2 ####[facility] LABIA [id number] [place] [address] [place] HbA1c (Bld) [Mass fraction] 7.0 % High 4.3-5.6 [facility] Comment on above: Order Comment: Ezekiel ramirez Type: BLOOD SPECIMENOrdering Facility: [facility] Address: [address] [place] [address] Result Comment: Amer ican Diabetes Association guidelines indicate that patients with HgbA1c in the range 5.7-6.4% are at increased risk for development of diabetes, and intervention by lifestyle modification may be beneficial. HgbA1c greater or equal to 6.5% is considered diagnostic of diabetes. Performed By: #### 5 5454-3, 94615-0 ####[facility] LABIA [id number] [address] [address] [place] Hepatic function 2000 panelo n 11-11-2024 Albumin [Mass/Vol] 2.1 g/dL Low 3.9-4.9 [facility] Comment on above: Order Comment: Speci men Type: BLOOD SPECIMENOrdering Facility: [facility] Address: [address] [place] [address] Performed By: #### 2 276-4, 66765-0, 54302-9, 81425-3, 2777-1, 69618-0 ####[facility] LABIA [id number] [address] [address] [place] ALP [Catalytic activity/Vol] 310 U/L High 38-113 [facility] Comment on above: Order Comment: Speci men Type: BLOOD SPECIMENOrdering Facility: [facility] Address: [address] [place] [address] Performed By: #### 2 276-4, 21065-3, 36033-0, 94721-0, 2777-1, 64489-9 ####[facility] [id number] [place] [address] [place] ALT [Catalytic activity/Vol] 31 U/L Normal 10-54 [facility] Comment on above: Order Comment: Speci men Type: BLOOD SPECIMENOrdering Facility: [facility] Address: [address] [place] [address] Performed By: #### 2 276-4, 27652-7, 60640-2, 91774-1, 2776-1, 61901-7 ####[facility] LABIA [id number] [address] [address] [place] AST [Catalytic activity/Vol] 44 U/L High 14-40 [facility] Comment on above: Order Comment: Speci men Type: BLOOD SPECIMENOrdering Facility: [facility] Address: [address] [place] [address] Performed By: #### 2 276-4, 12934-6, 31281-6, 68111-5, 2777-1, ####[facility] LABCLIA [id number] [address] [address] [place] Bilirubin [Mass/Vol] 1.6 mg/dL High 0.2-1.3 [facility] Comment on above: Order Comment: Speci men Type: BLOOD SPECIMENOrdering Facility: [facility] Address: [address] [place] [address] Performed By: #### 2 276-4, 26540-9, 39468-8, 73187-5, 2776-, ####[facility] LABCLIA [id number] [place] [address] [place] Bilirubin.conjugated [Mass/Vol] 1.0 mg/dL High <0.3 [facility] Comment on above: Order Comment: Speci men Type: BLOOD SPECIMENOrdering Facility: [facility] Address: [address] [place] [address] Performed By: #### 2 276-4, 94401-9, 06043-9, 31680-7, 2776-, ####[facility] LABIA [id number] [place] [address] [place] Protein [Mass/Vol] 5.3 g/dL Low 6.3-8.0 [facility] Comment on above: Order Comment: Speci men Type: BLOOD SPECIMENOrdering Facility: [facility] Address: [address] [place] [address] Performed By: #### 2 276-4, 05267-0, 04001-3, 03798-9, 2776-, ####[facility] LABCLIA [id number] [place] [address] [place] IMMATURE PLATELET FRACTIONon 11-11-2024 Platelets reticulated/100 platelets Auto (Bld) 7.7 % High 0.9-7.2 [facility] Comment on above: Order Comment: Speci men Type: BLOOD SPECIMENOrdering Facility: [facility] Address: [address] [place] [address] Performed By: #### I PFR, 61695-2, 05185-6 ####[facility] LABCLIA [id number] [address] [address] [place] Iron and Iron binding capaci ty panelon 11-11-2024 Iron [Mass/Vol] 34 ug/dL Low 41-186 [facility] Comment on above: Order Comment: Speci men Type: BLOOD SPECIMENOrdering Facility: [facility] Address: [address] [place] [address] Performed By: #### 2 276-4, 01758-9, 04289-7, 52798-1, 7-1, 65343-5 ####[facility] LABCLIA [id number] [place] [address] [place] Iron binding capacity [Mass/Vol] 180 ug/dL Low 232-386 [facility] Comment on above: Order Comment: Speci men Type: BLOOD SPECIMENOrdering Facility: [facility] Address: [address] [place] [address] Performed By: #### 2 276-4, 53130-1, 53815-7, 45312-2, 2776-1, 86596-1 ####[facility] LABCLIA [id number] [place] [address] [place] Iron/TIBC [Molar ratio] 18.9 % Normal 15.0-57.0 [facility] Comment on above: Order Comment: Speci men Type: BLOOD SPECIMENOrdering Facility: [facility] Address: [address] [place] [address] Performed By: #### 2 276-4, 95609-7, 67053-9, 23383-0, 7-1, 79660-0 ####[facility] LABCLIA [id number] [place] [address] [place] LDH SerPl-cCncon 11-11-2024 LDH [Catalytic activity/Vol] 321 U/L High 135-225 [facility] Comment on above: Order Comment: Speci men Type: BLOOD SPECIMENOrdering Facility: [facility] Address: [address] [place] [address] Performed By: #### 2 039-6, 92726-0, 2532-0 ####[facility] LABCLIA [id number] [address] [place] Lipase [facility] 11-11-2024 Lipase (Body fld) [Catalytic activity/Vol] 29 U/L Normal See Comment [facility] Comment on above: Order Comment: Speci men Type: FLUID SPECIMENOrdering Facility: [facility] Address: [address] [place] [address] Result Comment: Pleu ral fluids: Lipase measurement [...] Clinical Chemistry Approved Guideline. CLSI document C49A. JoePAULETTE rodriguez: Clinical Laboratory Standards [place]: 2007.2. David Guillory. A review of pancreatic cyst fluid analysis in the differential diagnosis of pancreatic cyst lesions. [facility] [employer] OnlineFirst 2013:0:1-16. Performed By: #### 1 747-5, 1795-4, 18300-2, 2881-1 ####[facility] LABIA [id number] [place] [address] [place] Lupus anticoagulant neutrali zation platelet Coag Ql (PPP)on 11-11-2024 aPTT Coag (Bld) [Time] 56.8 s High 30.2-43.0 [facility] Comment on above: Order Comment: Speci men Type: BLOOD SPECIMENOrdering Facility: [facility] Address: [address] [place] [address] Result Comment: This test was developed, and its performance characteristics determined by the [facility] Department of Pathology and Laboratory Medicine. It has not been cleared or approved by the FDA. The [facility] of Pathology and Laboratory Medicine is regulated under CLIA as qualified to perform high-complexity testing. This test is used for clinical purposes. It should not be regarded as investigational or for research. Performed By: #### L [id number], HCOAG, 6303-2, 79939-7, 88391-1 ####[facility] LABCLIA [id number] [address] [address] [place] aPTT Coag (Bld) [Time] 36.5 s Normal 31.5-38.3 [facility] Comment on above: Order Comment: Ezekiel ramirez Type: BLOOD SPECIMENOrdering Facility: [facility] Address: [address] [place] [address] Result Comment: This test was developed, and its performance characteristics determined by the [facility] Department of Pathology and Laboratory Medicine. It has not been cleared or approved by the FDA. The [facility] Pathology and Laboratory Medicine is regulated under CLIA as qualified to perform high-complexity testing. This test is used for clinical purposes. It should not be regarded as investigational or for research. Performed By: #### L [id number], HCOAG, 6303-2, 01506-7, 09849-3 ####[facility] LABCLIA [id number] [address] [place] [address] [place] PLATELET NEUT 0.0 Seconds Normal <1.9 [facility] Comment on above: Order Comment: Ezekiel ramirez Type: BLOOD SPECIMENOrdering Facility: [facility] Address: [address] [place] [address] Result Comment: This test was developed, and its performance characteristics determined by the [facility] Department of Pathology and Laboratory Medicine. It has not been cleared or approved by the FDA. The [facility] of Pathology and Laboratory Medicine is regulated under CLIA as qualified to perform high-complexity testing. This test is used for clinical purposes. It should not be regarded as investigational or for research. Performed By: #### L [id number], HCOAG, 6303-2, 29650-1, 59756-9 ####[facility] LABCLIA [id number] [address] [place] [address] [place] MANUAL DIFFERENTIAL, BODY FL UIDon 11-11-2024 DIF TTL, BODY FLUID 100 cells counted Normal [facility] Comment on above: Order Comment: Speci men Type: FLUID SPECIMENOrdering Facility: [facility] Address: [address] [place] [address] Performed By: #### C CBF, [id number] ####[facility] LABCLIA [id number] [address], [facility]95 [place] LYMPH%, BF 37 % High 18-36 [facility] Comment on above: Order Comment: Speci men Type: FLUID SPECIMENOrdering Facility: [facility] Address: [address] [place] [address] Performed By: #### C CBF, [id number] ####[facility] LABCLIA [id number] [address], [facility]95 [place] MACRO%, BF 21 % Low 64-80 [facility] Comment on above: Order Comment: Speci men Type: FLUID SPECIMENOrdering Facility: [facility] Address: [address] [place] [address] Performed By: #### C CBF, [id number] ####[facility] LABCLIA [id number] [address] [address] [place] MESO %, BF 12 % High 0-2 [facility] Comment on above: Order Comment: Speci men Type: FLUID SPECIMENOrdering Facility: [facility] Address: [address] [place] [address] Performed By: #### C CBF, [id number] ####[facility] LABCLIA [id number] [address], [place] [address] [place] NEUT%, BF 26 % High 0-1 [facility] Comment on above: Order Comment: Speci men Type: FLUID SPECIMENOrdering Facility: [facility] Address: [address] [place] [address] Performed By: #### C CBF, [id number] ####[facility] LABCLIA [id number] [place] [address] [place] REAC LYMPH %, BF 4 % Normal [facility] Comment on above: Order Comment: Speci men Type: FLUID SPECIMENOrdering Facility: [facility] Address: [address] [place] [address] Performed By: #### C CBF, [id number] ####[facility] LABCLIA [id number] [place] [address] [place] MEDICAL EMERon 11-11-2024 MEDICAL KRISTINA Normal [facility] MEDICAL KRISTINA Normal [facility] Magnesium SerPl-mCncon 11-11 Magnesium [Mass/Vol] 2.3 mg/dL Normal 1.7-2.3 [facility] Comment on above: Order Comment: Speci men Type: BLOOD SPECIMENOrdering Facility: [facility] Address: [address] [place] [address] Performed By: #### 2 276-4, 32511-1, 14118-2, 33554-7, 2777-1, 46943-0 ####[facility] LABCLIA [id number] [address], [place] [address] [place] NURSING PROGon 11-11-2024 NURSING PROG Normal [facility] PLT DEP.AB, UNF. HEPARINon 0 11-11-2024 % REL HIGH DOSE HEP PORCINE 0 % Normal [facility] Comment on above: Order Comment: Speci men Type: BLOOD SPECIMENOrdering Facility: [facility] Address: [address] [place] [address] Performed By: #### S ERORE ####[facility] [id number] [place] [address] % REL LOW DOSE HEP PORCINE 0 % Normal [facility] Comment on above: Order Comment: Speci men Type: BLOOD SPECIMENOrdering Facility: [facility] Address: [address] [place] [address] Performed By: #### S ERORE ####[facility] [id number] [place] [address] SEROTONIN REL INTERP See Note Normal [facility] Comment on above: Order Comment: Speci men Type: BLOOD SPECIMENOrdering Facility: [facility] Address: [address] [place] [address] Result Comment: This patient's specimen demonstrates a [...] Additionalinformation regarding diagnosis of HIT is available [employer]Like.INTERPRETIVE INFORMATION: ABRAHAM, Unfractionated HeparinThis test was developed and its performance characteristicsdetermined by [employer]. It has not been cleared orapproved by the [place] Food and Drug Administration. This test wasperformed in a CLIA certified laboratory and is intended forclinical purposes.Performed By: [employer] [place], [place] [address]Keqrwlbszm Director: Lizandro Ordonez MD, PhDCLIA Number: [id number] Performed By: #### S ERORE ####[facility] iMegaCLIA [id number] [place] [address] ABRAHAM, UNFRACTIONATED HEPARIN Negative Normal Negative [facility] Comment on above: Order Comment: Speci men Type: BLOOD SPECIMENOrdering Facility: [facility] Address: [address] [place] [address] Performed By: #### S ERORE ####[facility] [id number] [place] [address] PROTHROMBIN GENE PCRon 11-11 PROTHROMBIN GENE MUTATION Normal [facility] Comment on above: Order Comment: Speci men Type: BLOOD SPECIMENOrdering Facility: [facility] Address: [address] [place] [address] Result Comment: Prot hrombin Gene MutationLaboratory Accession Number: [id number]:NORMALInterpretation:The DNA sample is negative for the c.*97G>A variant (legacy keym37476Z>A) in the 3' untranslated region of the Factor II (F2) gene.This result is not associated with an increased risk of thromboembolicdisease. Thromboembolic disease is a multifactorial disorder and othercauses are not excluded by this result.Methodology:Isolated Genomic DNA from the patient's blood specimen is evaluatedfor the c*97G>A (g.18074676) variant of the F2 gene [RefSeqNM_000506.53;GRCh38/hg38] by multiplex polymerase chain reaction (PCR)followed by melting curve analysis.Limitations:This assay is designed to detect the c.*97G>A (75847N>A) variant inthe F2 gene. Uncommon variants or single nucleotide polymorphisms mayaffect binding of probes and may rarely result in false negative,false positive or indeterminate results. This assay does not detectother disease-associated rare variants in F2 or other causes ofthromboembolic disease.Disclaimer:This test was developed and its performance characteristics determinedby [facility]'s [facility]. Ithas not been cleared or approved by the FDA. [facility]'s[facility] Medicine Department is regulated under CLIAas certified to perform high-complexity testing. This test is used forclinical purposes. It should not be regarded as investigational or forresearch.Test performed at [facility], [address] [place], [place] [id number]. CLIA Number: [id number]:1) Inheritied Thrombophilias in . ACOG Practice Bulletin. No.197. [place] [employer]. ObseteGynecol 2018;132:e18-34.2) Elfego SR, Kinsey FR, Jeremy PH, and Bernice RM. A commongenetic variation in the 3'-untranslated region of the prothrombingene is associated with elevated plasma prothrombin levels and anincrease in venous thrombosis. Blood 88:3698-703, 1996.3) Rica Maier, Justus Alexander, Nayan Guillory, Emily Carmona. Cfvkpflynnj28154Z>T: 16 new cases, association with the 25035B>G polymorphism,and literature review. J Thromb Haemost. 2009;9:1585-7.Interpretation performed at remote location (R0A1) by Fifi España MD Performed By: #### P TGEN ####[facility] LIMSCLIA [id number] [place] [address] [place] PT panel Coag (PPP)on 2024 INR Coag (PPP) [Relative time] 2.3 {INR} High 0.9-1.3 [facility] Comment on above: Order Comment: Speci men Type: BLOOD SPECIMENOrdering Facility: [facility] Address: [address] [place] [address] Result Comment: Sarah min K Antagonist (VKA) Therapeutic Range: INR 2 to 3 (Target INR of 2.5)Note: For patients treated with VKA drugs, such as warfarin, the [place] [employer] 2012 Guideline recommends [...] al. Chest 2012, 141:7S-47SNishbethel RA, et al. [facility] 2017, 70: 252-289 Performed By: #### P [facility], 160[address]-2 ####[facility] LABCLIA [id number] [place] [address] [place] PT Coag (PPP) [Time] 23.1 s High 9.7-13.0 [facility] Comment on above: Order Comment: Speci men Type: BLOOD SPECIMENOrdering Facility: [facility] Address: [address] [place] [address] Performed By: #### P TTA, 24294-2 ####[facility] LABIA [id number] [address] [place] INR Coag (PPP) [Relative time] 2.1 {INR} High 0.9-1.3 [facility] Comment on above: Order Comment: Speci men Type: BLOOD SPECIMENOrdering Facility: [facility] Address: [address] [place] [address] Result Comment: Sarah min K Antagonist (VKA) Therapeutic Range: INR 2 to 3 (Target INR of 2.5)Note: For patients treated with VKA drugs, such as warfarin, the [place] [employer] 2012 Guideline recommends [...] al. Chest 2012, 141:7S-47SHector RA, et al. [facility] 2017, 70: 252-289 Performed By: #### 3 4528-0 ####[facility] LABIA [id number] [place] [address] [place] PT Coag (PPP) [Time] 22.0 s High 9.7-13.0 [facility] Comment on above: Order Comment: Speci men Type: BLOOD SPECIMENOrdering Facility: [facility] Address: [address] [place] [address] Performed By: #### 3 4528-0 ####[facility] [id number] [place] [address] [place] PTT, ANTICOAGULANT THERAPYon 11-11-2024 aPTT Coag (PPP) [Time] EXTREMELY ABNORMA L RESULT. No clot detected at 320 seconds. Refer to anticoagulation nomogram for further actions. Critically abnormal (none) [facility] Comment on above: Order Comment: Speci men Type: BLOOD SPECIMENOrdering Facility: [facility] Address: [address] [place] [address] Result Comment: Resu lt rechecked.Sample checked for clot. Performed By: #### P TTAC, 53676-4 ####[facility] LABIA [id number] [place] [address] [place] Phosphate SerPl-ncon 11-11 Phosphate [Mass/Vol] 2.6 mg/dL Low 2.7-4.8 [facility] Comment on above: Order Comment: Speci men Type: BLOOD SPECIMENOrdering Facility: [facility] Address: [address] [place] [address] Performed By: #### 2 276-4, 92868-4, 98266-2, 71294-2, 2777-1, 53128-5 ####[facility]UN[facility] [id number] [place] [address] [place] Prot Fld-mCncon 11-11-2024 Protein (Body fld) [Mass/Vol] 0.2 g/dL Normal See Comment [facility] Comment on above: Order Comment: Speci men Type: FLUID SPECIMENOrdering Facility: [facility] Address: [address] [place] [address] Result Comment: Sero us fluids: Effusions are [...] document C49A. PAULETTE Diaz: Clinical Laboratory Standards [place]: 2007. Performed By: #### 1 747-5, 1795-4, 27180-3, 2881-1 ####[facility] LABCLIA [id number] [place] [address] [place] Renal function 2000 panelon 11-11-2024 Albumin [Mass/Vol] 2.4 g/dL Low 3.9-4.9 [facility] Comment on above: Order Comment: Speci men Type: BLOOD SPECIMENOrdering Facility: [facility] Address: [address] [place] [address] Performed By: #### 2 4362-6, 454-7 ####[facility] LABIA [id number] [place] [address] [place] Anion gap [Moles/Vol] 10 mmol/L Normal 8-[address] [facility] Comment on above: Order Comment: Speci men Type: BLOOD SPECIMENOrdering Facility: [facility] Address: [address] [place] [address] Performed By: #### 2 4362-6, 4542-7 ####[facility] LABIA [id number] [address] [address] [place] Calcium [Mass/Vol] 9.3 mg/dL Normal 8.5-10.2 [facility] Comment on above: Order Comment: Speci men Type: BLOOD SPECIMENOrdering Facility: [facility] Address: [address] [place] [address] Performed By: #### 2 4362-6, 4542-7 ####[facility] LABCLIA [id number] [address] [address] [place] Chloride [Moles/Vol] 100 mmol/L Normal 98-107 [facility] Comment on above: Order Comment: Speci men Type: BLOOD SPECIMENOrdering Facility: [facility] Address: [address] [place] [address] Performed By: #### 2 4362-6, 4542-7 ####[facility] LABIA [id number] [place] [id number] [place] CO2 [Moles/Vol] 13 mmol/L Low 22-30 [facility] Comment on above: Order Comment: Speci men Type: BLOOD SPECIMENOrdering Facility: [facility] Address: [address] [place] [address] Performed By: #### 2 4362-6, 4542-7 ####[facility] LABIA [id number] [place] [address] [place] Creatinine [Mass/Vol] 1.26 mg/dL High 0.73-1.[address] [facility] Comment on above: Order Comment: Speci men Type: BLOOD SPECIMENOrdering Facility: [facility] Address: [address] [place] [address] Performed By: #### 2 4362-6, 4542-7 ####[facility] LABIA [id number] [place] [id number] [place] Creatinine and Glomerular filtration rate.predicted panel (S/P/Bld) 66 mL/min/1.73m??? Normal >=60 [facility] Comment on above: Order Comment: Speci men Type: BLOOD SPECIMENOrdering Facility: [facility] Address: [address] [place] [address] Result Comment: Patric mated Glomerular Filtration Rate [...] GFR. Performed By: #### 2 4362-6, 7 ####[facility] LABCLIA [id number] [address] [address] [place] Glucose [Mass/Vol] 255 mg/dL High 74-99 [facility] Comment on above: Order Comment: Ezekiel ramirez Type: BLOOD SPECIMENOrdering Facility: [facility] Address: [address] [place] [address] Result Comment: The [place] [employer] (ADA) provides guidance for cutoff [...] Standards of Medical Care in Diabetes 2016, [place] [employer]. Diabetes Care. 2016.39(Suppl 1). Performed By: #### 2 436-6, 7 ####[facility] LABCLIA [id number] [facility] [address] [address] [place] Phosphate [Mass/Vol] 2.5 mg/dL Low 2.7-4.8 [facility] Comment on above: Order Comment: Ezekiel ramirez Type: BLOOD SPECIMENOrdering Facility: [facility] Address: [address] [place] [address] Performed By: #### 2 436-6, 7 ####[facility] LABCLIA [id number] [facility] [address] [address] [place] Potassium [Moles/Vol] 4.4 mmol/L Normal 3.7-5.[address] [facility] Comment on above: Order Comment: Speci men Type: BLOOD SPECIMENOrdering Facility: [facility] Address: [address] [place] [address] Performed By: #### 2 4362-6, 4542-7 ####[facility] LABCLIA [id number] [place] [address] [place] Sodium [Moles/Vol] 123 mmol/L Low 136-144 [facility] Comment on above: Order Comment: Speci men Type: BLOOD SPECIMENOrdering Facility: [facility] Address: [address] [place] [address] Performed By: #### 2 4362-6, 7 ####[facility] LABIA [id number] [place] [address] [place] Urea nitrogen [Mass/Vol] 21 mg/dL Normal 9-24 [facility] Comment on above: Order Comment: Speci men Type: BLOOD SPECIMENOrdering Facility: [facility] Address: [address] [place] [address] Performed By: #### 2 4362-6, 7 ####[facility] LABIA [id number] [place] [address] [place] Retics #on 11-11-2024 Reticulocytes (Bld) [#/Vol] 0.71679 10*3/uL High 0.018-0.100 [facility] Comment on above: Order Comment: Speci men Type: BLOOD SPECIMENOrdering Facility: [facility] Address: [address] [place] [address] Performed By: #### I PFR, 34318-9, 37143-6 ####[facility] LABIA [id number] [place] [address] [place] Reticulocytes (Bld) [#/Vol]o n 11-11-2024 Reticulocytes/100 RBC (Bld) 4.1 % High 0.4-2.0 [facility] Comment on above: Order Comment: Speci men Type: BLOOD SPECIMENOrdering Facility: [facility] Address: [address] [place] [address] Performed By: #### I PFR, 37029-1, 36460-3 ####[facility] LABCLIA [id number] [place] [address] [place] SEPSIS LACTATEon 11-11-2024 Lactate [Moles/Vol] 3.4 mmol/L High <=2.0 [facility] Comment on above: Order Comment: Speci men Type: BLOOD SPECIMENOrdering Facility: [facility] Address: [address] [place] [address] Performed By: #### S LACT ####[facility] LABIA [id number] [place] [address] [place] Lactate [Moles/Vol] 3.6 mmol/L High <=2.0 [facility] Comment on above: Order Comment: Speci men Type: BLOOD SPECIMENOrdering Facility: [facility] Address: [address] [place] [address] Performed By: #### S LACT ####[facility] LABCLIA [id number] [place] [address] [place] Screen dRVVTon 11-11-2024 dRVVT Coag (PPP) [Time] 42.6 s Normal 32.0-45.7 [facility] Comment on above: Order Comment: Speci men Type: BLOOD SPECIMENOrdering Facility: [facility] Address: [address] [place] [address] Performed By: #### L [id number], HCOAG, 6303-2, 05831-4, 76809-1 ####[facility] LABCLIA [id number] [place] [address] [place] US ABD LIVER VASCULARon - US ABD LIVER VASCULAR Normal [facility] US DOPPLER COMPLETEon 2024 US DOPPLER COMPLETE Normal [facility] XR ABDOMEN 1V SUPINEon 11-11 XR ABDOMEN 1V SUPINE Normal [facility] XR CHEST 1V FRONTAL PORTon 0 11-11-2024 XR CHEST 1V FRONTAL PORT Normal [facility] XR CHEST 1V FRONTAL PORT Normal [facility] aPTT PPPon 11-11-2024 aPTT Coag (PPP) [Time] 41.7 s High 23.0-32.4 [facility] Comment on above: Order Comment: Speci men Type: BLOOD SPECIMENOrdering Facility: [facility] Address: [address] [place] [address] Performed By: #### 3 255-7, 48638-2 ####[facility] LABCLIA [id number] [place] [address] [place] dRVVT Coag (PPP) [Time]on dRVVT factor substitution immediately after 1:2 addition of normal plasma Coag (PPP) [Time] 35.4 seconds Normal 32.0-45.7 [facility] Comment on above: Order Comment: Speci men Type: BLOOD SPECIMENOrdering Facility: [facility] Address: [address] [place] [address] Performed By: #### L [id number], HCOAG, 6303-2, 93941-0, 15116-4 ####[facility] LABCLIA [id number] [place] [address] [place] dRVVT/dRVVT.excess phospholipid Coag (PPP) [Ratio] 0.91 Normal <1.32 [facility] Comment on above: Order Comment: Speci men Type: BLOOD SPECIMENOrdering Facility: [facility] Address: [address] [place] [address] Performed By: #### L [id number], HCOAG, 6303-2, 24950-9, 61191-1 ####[facility] LABCLIA [id number] [place] [id number] [place] ALP [Catalytic activity/Vol] Ordered By: Kathie Powers on 11-10-2024 Serum or plasma alkaline phosphatase measurement 310 U/L High 40-129 [facility] ALT [Catalytic activity/Vol] Ordered By: Kathie Powers on 11-10-2024 Serum or plasma alanine aminotransferase (ALT) measurement 36 U/L <47 [facility] Absolute lymphocyte countOrd ered By: Kathie Powers on 11-10-2024 Lymphocytes Auto (Unsp spec) [#/Vol] 1.30 10*3/uL 0.83-4.51 [facility] Absolute neutrophil countOrd ered By: Kathie Powers on 11-10-2024 Absolute neutrophil count 16.2 X10^3/uL High 2.0-7.7 [facility] Albumin [Mass/Vol]Ordered By : Kathie Powers on 11-10-2024 Serum or plasma albumin measurement (mass/volume) 2.3 g/dL Low 3.5-5.0 [facility] Albumin/Globulin [Mass ratio ]Ordered By: Kathie Powers on 11-10-2024 Serum or plasma albumin/globulin mass ratio 0.7 RATIO Low 0.9-2.4 [facility] Anion gap [Moles/Vol]Ordered By: Kathie Powers on 11-10-2024 Anion gap in Serum or Plasma 11 5-15 [facility] Anion gap in Serum or Plasma Ordered By: Kathie Powers on 11-10-2024 Anion gap [Moles/Vol] 11 mmol/L 5-15 [facility] Automated lymphocyte count a s percentage of total leukocytesOrdered By: Kathie Powers on 11-10-2024 Lymphocytes/100 WBC Auto (Unsp spec) 6.6 % Low 19-41 [facility] BUN/creatinine ratioOrdered By: Kathie Powers on 11-10-2024 Urea nitrogen/Creatinine [Mass ratio] 16.6 mg/mg 10-20 [facility] BUN/creatinine ratio 16.6 RATIO 10-20 [facility] Bacteria LM.HPF (Urine sed) [#/Area]Ordered By: Kathie Powers on 11-10-2024 Urine sediment bacteria count by microscopy (number/high power field) 2+ /hpf None Seen [facility] Basophil percentageOrdered B y: Kathie Powers on 11-10-2024 Basophils/100 WBC (Bld) 0.5 % 0-1 [facility] Basophil percentage 0.5 % 0-1 [facility] Bilirubin Test strip Ql (U)O rdered By: Kathie Powers on 11-10-2024 Bilirubin Ql (U) Negative Negative [facility] Urine total bilirubin detection by test strip Negative Negative [facility] Bilirubin, totalOrdered By: Kathie Powers on 11-10-2024 Bilirubin [Mass/Vol] 2.09 mg/dL High 0.00-1.30 [facility] Bilirubin, total 2.09 mg/dL High 0.00-1.30 [facility] Calcium [Mass/Vol]Ordered By : Kathie Powers on 11-10-2024 Serum or plasma calcium measurement (mass/volume) 9.2 mg/dL 7.6-11.0 [facility] Carbon dioxide, total [Moles /volume] in Central venous bloodOrdered By: Kathie Powers on 11-10-2024 CO2 [Moles/Vol] 13.3 mmol/L Low 21.0-32.0 [facility] Carbon dioxide, total [Moles/volume] in Central venous blood 13.3 mmol/L Low 21.0-32.0 [facility] Chloride assayOrdered By: Paulette Powers on 11-10-2024 Chloride [Moles/Vol] 99 mmol/L 98-108 [facility] Chloride assay 99 mmol/L 98-108 [facility] Clarity (U)Ordered By: Kathie Powers on 11-10-2024 Urine clarity Turbid Clear [facility] Color (U)Ordered By: Kathie bhatt on 11-10-2024 Urine color determination Brown Yellow [facility] Creatinine [Mass/Vol]Ordered By: Kathie Powers on 11-10-2024 Serum creatinine measurement (mass/volume) 1.13 mg/dL 0.70-1.20 [facility] Eosinophil percentageOrdered By: Kathie Powers on 11-10-2024 Eosinophils/100 WBC (Bld) 1.9 % 0-5 [facility] Eosinophil percentage 1.9 % 0-5 [facility] Erythrocyte distribution wid th (RBC) [Ratio]Ordered By: Kathie Powers on 11-10-2024 Erythrocyte distribution width ratio 18.1 % High 11.6-14.6 [facility] Erythrocyte distribution width standard deviation 62.1 fl High 35.1-43.9 [facility] Erythrocyte distribution wid th ratioOrdered By: Kathie Powers on 11-10-2024 Erythrocyte distribution width (RBC) [Ratio] 18.1 % High 11.6-14.6 [facility] Erythrocyte distribution wid th standard deviationOrdered By: Kathie Powers on 11-10-2024 Erythrocyte distribution width (RBC) [Ratio] 62.1 fl High 35.1-43.9 [facility] Estimation of creatinine carolina aranceOrdered By: Kathie Powers on 11-10-2024 Estimation of creatinine clearance 88.23 ml/min 50-250 [facility] GFR/1.73 sq M.predicted niki g non-blacks MDRD (S/P/Bld) [Vol rate/Area]Ordered By: Kathie Powers on 11-10-2024 Glomerular filtration rate (GFR) estimation/1.73 sq m using serum, plasma, or whole b 75 >60 [facility] Glomerular filtration rate ( GFR) estimation/1.73 sq m using serum, plasma, or whole bOrdered By: Kathie Powers on 11-10-2024 GFR/1.73 sq M.predicted among non-blacks MDRD (S/P/Bld) [Vol rate/Area] 75 mL/min/{1.73_m2} >60 [facility] Glucose Ql (U)Ordered By: Paulette Powers on 11-10-2024 Urine glucose detection Normal mg/dl Normal [facility] Glucose [Mass/Vol]Ordered By : Kathie Powers on 11-10-2024 Serum glucose measurement (mass/volume) 298 mg/dL High 70-99 [facility] Glucose measurement at bedsi deOrdered By: Kathie Powers on 11-10-2024 Glucose [Mass/Vol] 265 mg/dL High 74-106 [facility] Glucose measurement at bedside 265 mg/dL High 74-106 [facility] Hematocrit Auto (Bld) [Volum e fraction]Ordered By: Kathie Powers on 11-10-2024 Hematocrit (Bld) [Volume fraction] 32.9 % Low 40-54 [facility] Automated blood hematocrit (percentage) 32.9 % Low 40-54 [facility] Hemoglobin measurementOrdere d By: Kathie Powers on 11-10-2024 Hemoglobin (Bld) [Mass/Vol] 11.3 g/dL Low 13.0-16.5 [facility] Hemoglobin measurement 11.3 g/dL Low 13.0-16.5 [facility] Immature granulocytes/100 WB C Auto (Bld)Ordered By: Kathie Powers on 11-10-2024 Immature granulocytes/100 WBC (Bld) 1.100 % High 0.0-0.9 [facility] Automated immature granulocyte percentage 1.100 % High 0.0-0.9 [facility] International normalized rat io (INR) calculationOrdered By: Kathie Powers on 11-10-2024 International normalized ratio (INR) calculation 3.1 [facility] Ketones Test strip Ql (U)Ord ered By: Kathie Powers on 11-10-2024 Ketones Ql (U) 5 mg/dl High Negative [facility] Urine ketones detection by test strip 5 mg/dl High Negative [facility] Leukocyte esterase Test stri p Ql (U)Ordered By: Kathie Powers on 11-10-2024 Urine leukocyte esterase detection by dipstick 500 /ul High Negative [facility] Lymphocytes Auto (Unsp spec) [#/Vol]Ordered By: Kathie Powers on 11-10-2024 Absolute lymphocyte count 1.30 X10^3/uL 0.83-4.51 [facility] Lymphocytes/100 WBC Auto (Un sp spec)Ordered By: Kathie Powers on 11-10-2024 Automated lymphocyte count as percentage of total leukocytes 6.6 % Low 19-41 [facility] MCV (RBC) [Entitic vol]Order ed By: Kathie Powers on 11-10-2024 MCV (mean corpuscular volume) determination 92.7 fL 80-94 [facility] MCV (mean corpuscular volume ) determinationOrdered By: Kathie Powers on 11-10-2024 MCV (RBC) [Entitic vol] 92.7 fL 80-94 [facility] Mean corpuscular hemoglobin (MCH) determinationOrdered By: Kathie Powers on 11-10-2024 MCH (RBC) [Entitic mass] 31.8 pg 27.0-32.0 [facility] Mean corpuscular hemoglobin (MCH) determination 31.8 pg 27.0-32.0 [facility] Mean corpuscular hemoglobin concentration (MCHC) determinationOrdered By: Kathie Powers on 11-10-2024 Mean corpuscular hemoglobin concentration (MCHC) determination 34.3 g/dL 32-36 [facility] Mean platelet volume determi nationOrdered By: Kathie Powers on 11-10-2024 Mean platelet volume determination 12.2 fl High 6.2-12.0 [facility] Microscopic analysis of urin e for red blood cells (RBC)Ordered By: Kathie Powers on 11-10-2024 Microscopic analysis of urine for red blood cells (RBC) > 100 SEEN /hpf 0-5 [facility] Monocyte percentageOrdered B y: Kathie Powers on 11-10-2024 Monocytes/100 WBC (Bld) 6.9 % 0-10 [facility] Monocyte percentage 6.9 % 0-10 [facility] Mucus LM Ql (Urine sed)Order ed By: Kathie Powers on 11-10-2024 Mucus Ql (Urine sed) 0 SEEN /hpf [facility] Neutrophil percentageOrdered By: Kathie Powers on 11-10-2024 Neutrophils/100 WBC (Bld) 83.0 % High 47-70 [facility] Neutrophil percentage 83.0 % High 47-70 [facility] Nitrite Test strip Ql (U)Ord ered By: Kathie Powers on 11-10-2024 Nitrite Ql (U) Positive High Negative [facility] Urine nitrite test by dipstick Positive High Negative [facility] No Panel InformationOrdered By: Kathie Powers on 11-10-2024 58 U/L High <38 [facility] Nucleated red blood cell per centageOrdered By: Kathie Powers on 11-10-2024 Nucleated red blood cell percentage 0 % 0-5 [facility] Platelet countOrdered By: Paulette Powers on 11-10-2024 Platelets (Bld) [#/Vol] 58 10*3/uL Low 150-450 [facility] Platelet count 58 K/mm3 Low 150-450 [facility] Potassium (Unsp spec) [Mass/ Vol]Ordered By: Kathie Powers on 11-10-2024 Potassium measurement (mass/volume) 3.6 mmol/L 3.3-5.1 [facility] Potassium measurement (mass/ volume)Ordered By: Kathie Powers on 11-10-2024 Potassium (Unsp spec) [Mass/Vol] 3.6 mmol/L 3.3-5.1 [facility] Protein Test strip Ql (U)Ord ered By: Kathie Powers on 11-10-2024 Protein Ql (U) 500 mg/dl High Negative [facility] Urine protein assay by test strip, semi-quantitative 500 mg/dl High Negative [facility] Prothrombin timeOrdered By: Kathie Powers on 11-10-2024 PT Coag (PPP) [Time] 32.3 s High 11.7-14.9 [facility] Prothrombin time 32.3 SECONDS High 11.7-14.9 [facility] RBC Auto (Bld) [#/Vol]Ordere d By: Kathie Powers on 11-10-2024 RBC (Bld) [#/Vol] 3.55 10*6/uL Low 4.6-6.2 [facility] Automated blood erythrocyte count 3.55 M/mm3 Low 4.6-6.2 [facility] Serum creatinine measurement (mass/volume)Ordered By: Kathie Powers on 11-10-2024 Creatinine [Mass/Vol] 1.13 mg/dL 0.70-1.20 [facility] Serum globulin measurementOr dered By: Kathie Powers on 11-10-2024 Globulin (S) [Mass/Vol] 3.4 g/dL 2.2-4.2 [facility] Serum globulin measurement 3.4 g/dL 2.2-4.2 [facility] Serum glucose measurement (m ass/volume)Ordered By: Kathie Powers on 11-10-2024 Glucose [Mass/Vol] 298 mg/dL High 70-99 [facility] Serum or plasma alanine thomas otransferase (ALT) measurementOrdered By: Kathie Powers on 11-10-2024 ALT [Catalytic activity/Vol] 36 U/L <47 [facility] Serum or plasma albumin roosevelt urement (mass/volume)Ordered By: Kathie Powers on 11-10-2024 Albumin [Mass/Vol] 2.3 g/dL Low 3.5-5.0 [facility] Serum or plasma albumin/glob ulin mass ratioOrdered By: Kathie Powers on 11-10-2024 Albumin/Globulin [Mass ratio] 0.7 {ratio} Low 0.9-2.4 [facility] Serum or plasma alkaline kendrick sphatase measurementOrdered By: Kathie Powers on 11-10-2024 ALP [Catalytic activity/Vol] 310 U/L High 40-129 [facility] Serum or plasma calcium roosevelt urement (mass/volume)Ordered By: Kathie Powers on 11-10-2024 Calcium [Mass/Vol] 9.2 mg/dL 7.6-11.0 [facility] Serum or plasma urea nitroge n measurement (mass/volume)Ordered By: Kathie Powers on 11-10-2024 Urea nitrogen [Mass/Vol] 19 mg/dL 4- [facility] Sodium levelOrdered By: Javed Powers on 11-10-2024 Sodium [Moles/Vol] 123 mmol/L Low 133-145 [facility] Sodium level 123 mmol/L Low 133-145 [facility] Specific gravity (U) [Rel de nsity]Ordered By: Kathie Powers on 11-10-2024 Urine specific gravity measurement 1.015 1.002-1.030 [facility] Squamous epithelial cells de tection in urine sediment by light microscopyOrdered By: Kathie Powers on 11-10-2024 Epithelial cells.squamous LM Ql (Urine sed) 0 SEEN /hpf 0-5 [facility] Squamous epithelial cells detection in urine sediment by light microscopy 0 SEEN /hpf [facility] Total proteinOrdered By: Tyree Powers on 11-10-2024 Protein [Mass/Vol] 5.7 g/dL Low 5.9-8.4 [facility] Total protein 5.7 g/dL Low 5.9-8.4 [facility] Urea nitrogen [Mass/Vol]Orde red By: Kathie Powers on 11-10-2024 Serum or plasma urea nitrogen measurement (mass/volume) 19 mg/dL 4-19 [facility] Urine blood detectionOrdered By: Kathie Powers on 11-10-2024 Urine blood detection 250 /ul High Negative [facility] Urine clarityOrdered By: Tyree Powers on 11-10-2024 Clarity (U) Turbid Clear [facility] Urine color determinationOrd ered By: Kathie Powers on 11-10-2024 Color (U) Brown Yellow [facility] Urine glucose detectionOrder ed By: Kathie Powers on 11-10-2024 Glucose Ql (U) Normal mg/dl Normal [facility] Urine leukocyte esterase det ection by dipstickOrdered By: Kathie Powers on 11-10-2024 Leukocyte esterase Test strip Ql (U) 500 /ul High Negative [facility] Urine pHOrdered By: Kathie ruize on 11-10-2024 pH (U) 6.5 [pH] 5.0 - 8.0 [facility] Urine sediment bacteria coun t by microscopy (number/high power field)Ordered By: Kathie Powers on 11-10-2024 Bacteria LM.HPF (Urine sed) [#/Area] 2 /[HPF] None Seen [facility] Urine specific gravity measu rementOrdered By: Kathie Powers on 11-10-2024 Specific gravity (U) [Rel density] 1.015 1.002-1.030 [facility] Urine urobilinogen measureme ntOrdered By: Kathie Powers on 11-10-2024 Urobilinogen Ql (U) 1 mg/dl High Normal [facility] Urobilinogen Ql (U)Ordered B y: Kathie Powers on 11-10-2024 Urine urobilinogen measurement 1 mg/dl High Normal [facility] White blood cell (WBC) count Ordered By: Kathie Powers on 11-10-2024 WBC (Bld) [#/Vol] 19.6 10*3/uL High 4.4-11.0 [facility] White blood cell (WBC) count 19.6 K/mm3 High 4.4-11.0 [facility] White blood cell countOrdere d By: Kathie Powers on 11-10-2024 White blood cell count 5-10 SEEN /hpf 0-5 [facility] White blood cell count 5-10 SEEN /hpf 0-5 [facility] pH (U)Ordered By: Kathie aguilar on 11-10-2024 Urine pH 6.5 5.0 - 8.0 [facility] Blood manual differential co mment interpretation (narrative result)Ordered By: Kathie Powers on 11-09-2024 Manual differential comment Marco Antonio (Bld) [Interp] SCANNED [facility] Lactic acid measurementOrder ed By: Kathie Powers on 11-09-2024 Lactic acid measurement 2.4 mmol/L High 0.0-2.0 [facility] Manual differential comment Marco Antonio (Bld) [Interp]Ordered By: Kathie Powers on 11-09-2024 Blood manual differential comment interpretation (narrative result) SCANNED [facility] Pathologist review Marco Antonio (Unsp spec) [Interp]Ordered By: Kathie Powers on 11-09-2024 Review by pathologist N/A [facility] Platelet estimateOrdered By: Kathie Powers on 11-09-2024 Platelets LM Ql (Bld) MKD DEC ADEQ [facility] Platelets LM Ql (Bld)Ordered By: Kathie Powers on 11-09-2024 Platelet estimate MKD DEC ADEQ [facility] Review by pathologistOrdered By: Kathie Powers on 11-09-2024 Pathologist review Marco Antonio (Unsp spec) [Interp] N/A [facility] Venous blood ammonia measure mentOrdered By: Kathie Powers on 11-09-2024 Ammonia (P) [Moles/Vol] 104.0 umol/L High 16-60 [facility] Venous blood ammonia measurement 104.0 umol/L High 16-60 [facility] Lipase measurementOrdered By : Kathie Powers on 11-08-2024 Lipase measurement 94 U/L High 13-75 [facility] Magnesium (Unsp spec) [Mass/ Vol]Ordered By: Kathie Powers on 11-08-2024 Magnesium measurement (mass/volume) 2.4 mg/dL High 1.5-2.2 [facility] Magnesium measurement (mass/ volume)Ordered By: Kathie Powers on 11-08-2024 Magnesium (Unsp spec) [Mass/Vol] 2.4 mg/dL High 1.5-2.2 [facility] Serum phosphorus measurement Ordered By: Kathie Powers on 11-08-2024 Serum phosphorus measurement 1.6 mg/dL Low 2.7-4.5 [facility] Blood polychromasia detectio n by light microscopyOrdered By: Hill Acuña on 11-07-2024 Polychromasia LM Ql (Bld) 1+ [facility] Blood polychromasia detection by light microscopy 1+ [facility] Ovalocyte detectionOrdered B y: Hill Acuña on 11-07-2024 Ovalocytes LM Ql (Bld) 1+ Wo [facility] Band form neutrophils/100 WB C (Bld)Ordered By: Hill Acuña on 11-03-2024 Blood band neutrophil count as percentage of total leukocytes 6 % High 0-5 [facility] Blood band neutrophil count as percentage of total leukocytesOrdered By: Hill Acuña on 11-03-2024 Band form neutrophils/100 WBC (Bld) 6 % High 0-5 [facility] Blood eosinophils/100 leukoc ytesOrdered By: Hill Acuña on 11-03-2024 Eosinophils/100 WBC (Bld) 1 % 0-5 [facility] Blood lymphocytes/100 leukoc ytesOrdered By: Hill Acuña on 11-03-2024 Lymphocytes/100 WBC (Bld) 2 % Low 19-41 [facility] Blood lymphocytes/100 leukocytes 2 % 0-10 [facility] Blood metamyelocytes/100 bri kocytesOrdered By: Hill Acuña on 11-03-2024 Metamyelocytes/100 WBC (Bld) 1 % 0-1 [facility] Blood metamyelocytes/100 leukocytes 1 % 0-5 [facility] Blood monocytes/100 leukocyt esOrdered By: Hill Acuña on 11-03-2024 Monocytes/100 WBC (Bld) 2 % 0-10 [facility] Blood segmented neutrophils/ 100 leukocytesOrdered By: Hill Acuña on 11-03-2024 Segmented neutrophils/100 WBC (Bld) 85 % High 47-70 [facility] Cells counted Molgen (Bld/Ti ss) [#]Ordered By: Hill Acuña on 11-03-2024 Total cell count 100 MANUAL DIFF [facility] Segmented neutrophils/100 WB C (Bld)Ordered By: Hill Acuña on 11-03-2024 Blood segmented neutrophils/100 leukocytes 85 % High 47-70 [facility] Total cell countOrdered By: Hill Acuña on 11-03-2024 Cells counted Molgen (Bld/Tiss) [#] 100 MANUAL DIFF [facility] Erythrocyte morphology asses smentOrdered By: Hill Acuña on 11-02-2024 RBC morphology finding Nom (Bld) NORM C+C NORMAL NORM C&C [facility] RBC morphology finding Nom ( Bld)Ordered By: Hill Acuña on 11-02-2024 Erythrocyte morphology assessment NORM C+C NORMAL NORM C&C [facility] Trough vancomycin levelOrder ed By: Buster Fuchs on 11-01-2024 Vancomycin trough [Mass/Vol] 17.7 ug/mL High 5.0-15.0 [facility] Vancomycin trough [Mass/Vol] Ordered By: Buster Fuchs on 11-01-2024 Trough vancomycin level 17.7 ug/mL High 5.0-15.0 [facility] Activated partial thrombopla stin time (aPTT) in platelet poor plasma by coagulation aOrdered By: Buster Fuchs on 10-31-2024 aPTT Coag (PPP) [Time] 42.7 s High 24.1-36.2 [facility] aPTT Coag (PPP) [Time]Ordere d By: Buster Fuchs on 10-31-2024 Activated partial thromboplastin time (aPTT) in platelet poor plasma by coagulation a 42.7 Seconds High 24.1-36.2 [facility] C. difficile Ql (Stl)Ordered By: Hill Wright on 10-30-2024 Stool Clostridium difficile detection Toxigenic C. difficile Abnormal [facility] Clostridium difficile detect ion by polymerase chain reactionOrdered By: Hill Wright on 10-30-2024 C. difficile DNA ANANTH+probe Ql (Unsp spec) [facility] Stool Clostridium difficile detectionOrdered By: Hill Wright on 10-30-2024 C. difficile Ql (Stl) Toxigenic C. difficile Abnormal [facility] Stool lactoferrin detection by immunoassayOrdered By: Hill Wright on 10-30-2024 Lactoferrin IA Ql (Stl) [facility] Arterial patency Wrist arter y --pre arterial punctureOrdered By: Buster Fuchs on 10-29-2024 Assessment of wrist artery patency prior to arterial puncture Positive [facility] Assessment of wrist artery p atency prior to arterial punctureOrdered By: Buster Fuchs on 10-29-2024 Arterial patency Wrist artery --pre arterial puncture Positive [facility] Base excess Calc (BldV) [Mol es/Vol]Ordered By: Buster Fuchs on 10-29-2024 Blood base excess determination -10 mmol/L [facility]2-2 [facility] Blood base excess determinat ionOrdered By: Buster Fuchs on 10-29-2024 Base excess Calc (BldV) [Moles/Vol] -10 mmol/L [facility] -2-2 [facility] Blood bicarbonate measuremen tOrdered By: Buster Fuchs on 10-29-2024 HCO3 (Bld) [Moles/Vol] 15.2 mmol/L Low - [facility] Blood bicarbonate measurement 15.2 mmol/L Low - [facility] Blood cultureOrdered By: Hugo Wright on 10-29-2024 Bacteria identified Cx Nom (Bld) No growth in 5 days. [facility] Blood culture No growth in 5 days. [facility] Calculated very low density lipoprotein (VLDL) cholesterol measurementOrdered By: Hill Wright on 10-29-2024 Calculated very low density lipoprotein (VLDL) cholesterol measurement 17 mg/dL 5-40 [facility] Calculated very low density lipoprotein (VLDL) cholesterol measurement 17 mg/dL 5-40 [facility] Cholesterol [Mass/Vol]Ordere d By: Hill Wright on 10-29-2024 Serum or plasma cholesterol measurement (mass/volume) 132 mg/dL <201 [facility] Cholesterol in HDL [Mass/Vol ]Ordered By: Hill Wright on 10-29-2024 Serum or plasma cholesterol in HDL measurement (mass/volume) 33 mg/dL Low >40 [facility] Determination of fraction of inspired oxygenOrdered By: Buster Fuchs on 10-29-2024 Determination of fraction of inspired oxygen 21.0 [facility] Electrocardiogram reportOrde red By: Jeovanny Ramos on 10-29-2024 EKG study [facility] Other Phone: LDL calc ser/plasOrdered By: Hill Wright on 10-29-2024 Cholesterol in LDL [Mass/Vol] 83 mg/dL [facility] Measurement, pHOrdered By: Stacy Fuchs on 10-29-2024 pH (Unsp spec) 7.39 [pH] 7.35-7.45 [facility] No Panel InformationOrdered By: Buster Fuchs on 10-29-2024 ART [facility] L Radial [facility] Not entered [facility] Room Air [facility] No Panel InformationOrdered By: Hill Wright on 10-29-2024 10.20 ug/dL 6.02-18.40 [facility] Osmolality, serumOrdered By: Hill Wright on 10-29-2024 Osmolality, serum 292 mOsm/KG 275-295 [facility] Oxygen saturation measuremen tOrdered By: Buster Fuchs on 10-29-2024 Oxygen saturation measurement 93 % Low 95-99 [facility] Partial pressure of carbon d ioxide measurementOrdered By: Buster Fuchs on 10-29-2024 Partial pressure of carbon dioxide measurement 25.1 mmHg Low 35-45 [facility] Partial pressure of oxygen m easurementOrdered By: Buster Fuchs on 10-29-2024 Partial pressure of oxygen measurement 67 mmHG Low 75-100 [facility] Screening total cholesterol/ high density lipoprotein (HDL) cholesterol ratioOrdered By: Hill Wright on 10-29-2024 Screening total cholesterol/high density lipoprotein (HDL) cholesterol ratio 4.04 [facility] Serum or plasma cholesterol in HDL measurement (mass/volume)Ordered By: Hill Wright on 10-29-2024 Cholesterol in HDL [Mass/Vol] 33 mg/dL Low >40 [facility] Serum or plasma cholesterol measurement (mass/volume)Ordered By: Hill Wright on 10-29-2024 Cholesterol [Mass/Vol] 132 mg/dL <201 [facility] Total carbon dioxide measure mentOrdered By: Buster Fuchs on 10-29-2024 CO2 [Moles/Vol] 16 mmol/L [facility] Total carbon dioxide measurement 16 mmol/L [facility] Triglycerides measurementOrd ered By: Hill Wright on 10-29-2024 Triglycerides measurement 83 mg/dL [facility] Urine cultureOrdered By: Viraj Dunn on 10-29-2024 Bacteria identified Cx Nom (U) Culture exhibits no growth. [facility] Urine culture Culture exhibits no growth. [facility] pH (Unsp spec)Ordered By: Marianna Fuchs on 10-29-2024 Measurement, pH 7.39 7.35-7.45 [facility] Absolute neutrophil countOrd ered By: Alber Dunn on 10-28-2024 Neutrophils (Bld) [#/Vol] 19.0 10*3/uL High 2.0-7.7 [facility] Amorphous sediment LM Ql (Ur ine sed)Ordered By: Alber Dunn on 10-28-2024 Amorphous sediment detection in urine sediment by light microscopy 1+ URATE [facility] Amorphous sediment detection in urine sediment by light microscopyOrdered By: Alber Dunn on 10-28-2024 Amorphous sediment LM Ql (Urine sed) 1+ URATE [facility] Anion gap in Serum or Plasma Ordered By: Alber Dunn on 10-28-2024 Anion gap [Moles/Vol] 17 mmol/L High 5-15 [facility] BUN/creatinine ratioOrdered By: Alber Dunn on 10-28-2024 Urea nitrogen/Creatinine [Mass ratio] 18.8 mg/mg 10-20 [facility] Basophil percentageOrdered B y: Alber Dunn on 10-28-2024 Basophils/100 WBC (Bld) 0.2 % 0-1 [facility] Bilirubin Test strip Ql (U)O rdered By: Alber Dunn on 10-28-2024 Bilirubin Ql (U) 1 mg/dL High Negative [facility] Comment on above: COLOR OF URINE MAY A FFECT DIPSTICK RESULTS. Bilirubin, totalOrdered By: Alber Dunn on 10-28-2024 Bilirubin [Mass/Vol] 1.86 mg/dL High 0.00-1.30 [facility] Carbon dioxide, total [Moles /volume] in Central venous bloodOrdered By: Alber Dunn on 10-28-2024 CO2 [Moles/Vol] 12.4 mmol/L Low 21.0-32.0 [facility] Chloride assayOrdered By: Hernesto Dunn on 10-28-2024 Chloride [Moles/Vol] 98 mmol/L 98-108 [facility] Eosinophil percentageOrdered By: Alber Dunn on 10-28-2024 Eosinophils/100 WBC (Bld) 1.4 % 0-5 [facility] Epithelial cells.squamous LM Ql (Urine sed)Ordered By: Alber Dunn on 10-28-2024 Epithelial cells.squamous LM.HPF (Urine sed) [#/Area] 5 /[HPF] 0-5 [facility] Erythrocyte distribution wid th ratioOrdered By: Alber Dunn on 10-28-2024 Erythrocyte distribution width (RBC) [Ratio] 19.1 % High 11.6-14.6 [facility] Erythrocyte distribution wid th standard deviationOrdered By: Alber Dunn on 10-28-2024 Erythrocyte distribution width (RBC) [Entitic vol] 62.7 fL High 35.1-43.9 [facility] GFR/1.73 sq M.predicted niki g non-blacks MDRD (S/P/Bld) [Vol rate/Area]Ordered By: Alber Dunn on 10-28-2024 Estimated GFR (MDRD) Non-Af Amer 62 >60 [facility] Comment on above: mL/min/1.73m2 CKD-EP I Creatinine Equation (2020) Glucose Ql (U)Ordered By: Hernesto Dunn on 10-28-2024 Glucose (U) [Mass/Vol] 50 mg/dL High Normal [facility] HbA1c (Bld) [Mass fraction]O rdered By: Hill Wright on 10-28-2024 Hemoglobin A1c percentage 6.7 % >5.7 [facility] Hematocrit Auto (Bld) [Volum e fraction]Ordered By: Alber Dunn on 10-28-2024 Hematocrit (Bld) [Volume fraction] 37.3 % Low 40-54 [facility] Hemoglobin A1c percentageOrd ered By: Hill Wright on 10-28-2024 HbA1c (Bld) [Mass fraction] 6.7 % >5.7 [facility] Hemoglobin measurementOrdere d By: Alber Dunn on 10-28-2024 Hemoglobin (Bld) [Mass/Vol] 12.7 g/dL Low 13.0-16.5 [facility] Immature granulocytes/100 WB C Auto (Bld)Ordered By: Alber Dunn on 10-28-2024 Immature granulocytes/100 WBC (Bld) 1.400 % High 0.0-0.9 [facility] Comment on above: IG% - Immature Granu locytes (promyelocytes, myelocytes and metamyelocytes) > 1% indicates that a LEFT SHIFT is Present. Ketones Test strip Ql (U)Ord ered By: Alber Dunn on 10-28-2024 Ketones Ql (U) 5 mg/dl High Negative [facility] Laboratory - Chemistry and C hemistry - challengeOrdered By: Alber Dunn on 10-28-2024 AST [Catalytic activity/Vol] 48 U/L High <38 [facility] Comment on above: Hemolysis present, R esults could be affected. Laboratory - Hematology and Cell countsOrdered By: Alber Dunn on 10-28-2024 Anisocytosis Ql (Bld) RARE [facility] Lactic acid measurementOrder ed By: Alber Dunn on 10-28-2024 Lactate [Moles/Vol] 4.0 mmol/L High 0.0-2.0 [facility] Comment on above: Critical Result(s) C alled [...] 10-28-2024 Lipase [Catalytic activity/Vol] 45 U/L 13-75 [facility] Comment on above: Please note:LIPASE r evised reference range effective 22. New Lipase methodology. Expected to produce lower values than the previous assay method. NEW Reference Range: 13 - 75 U/L Lymphocytes Auto (Unsp spec) [#/Vol]Ordered By: Alber Dunn on 10-28-2024 Lymphocytes (Bld) [#/Vol] 1.28 10*3/uL 0.83-4.51 [facility] Lymphocytes/100 WBC Auto (Un sp spec)Ordered By: Alber Dunn on 10-28-2024 Lymphocytes/100 WBC (Bld) 5.6 % Low 19-41 [facility] MCV (mean corpuscular volume ) determinationOrdered By: Alber Dunn on 10-28-2024 MCV (RBC) [Entitic vol] 91.2 fL 80-94 [facility] Macrocytes Ql (Bld)Ordered B y: Alber Dunn on 10-28-2024 Macrocytosis RARE [facility] Macrocytes detection RARE [facility] Macrocytes detectionOrdered By: Alber Dunn on 10-28-2024 Macrocytes Ql (Bld) RARE [facility] Manual differential comment Marco Antonio (Bld) [Interp]Ordered By: Alber Dunn on 10-28-2024 Differential Comment SEE COMMENT [facility] Comment on above: MONOCYTOSIS NOTED Mean corpuscular hemoglobin (MCH) determinationOrdered By: Alber Dunn on 10-28-2024 MCH (RBC) [Entitic mass] 31.1 pg 27.0-32.0 [facility] Mean corpuscular hemoglobin concentration (MCHC) determinationOrdered By: Alber Dunn on 10-28-2024 MCHC (RBC) [Mass/Vol] 34.0 g/dL 32-36 [facility] Mean platelet volume determi nationOrdered By: Alebr Dunn on 10-28-2024 Platelet mean volume (Bld) [Entitic vol] 12.0 fL 6.2-12.0 [facility] Microscopic analysis of urin e for red blood cells (RBC)Ordered By: Alber Dunn on 10-28-2024 Urine RBC > 100 SEEN /hpf 0-5 [facility] Monocyte percentageOrdered B y: Alber Dunn on 10-28-2024 Monocytes/100 WBC (Bld) 8.4 % 0-10 [facility] Mucus LM Ql (Urine sed)Order ed By: Alber Dunn on 10-28-2024 Mucus Ql (Urine sed) 0 SEEN /hpf [facility] Neutrophil percentageOrdered By: Alber Dunn on 10-28-2024 Neutrophils/100 WBC (Bld) 83.0 % High 47-70 [facility] Nitrite Test strip Ql (U)Ord ered By: Alber Dunn on 10-28-2024 Nitrite Ql (U) Negative Negative [facility] Nucleated red blood cell per centageOrdered By: Alber Dunn on 10-28-2024 Nucleated RBC/100 WBC (Bld) [Ratio] 0 % 0-5 [facility] Osmolality (U) [Osmolality]O rdered By: Hill Wright on 10-28-2024 Osmolality ur 484 mOsm/KG >50 [facility] Osmolality urOrdered By: Hugo Wright on 10-28-2024 Osmolality (U) [Osmolality] 484 mOsm/KG >50 [facility] Ovalocytes LM Ql (Bld)Ordere d By: Alber Dunn on 10-28-2024 Ovalocytes RARE [facility] Pathologist review Marco Antonio (Unsp spec) [Interp]Ordered By: Alber Dunn on 10-28-2024 Differential Pathologist's Review May [facility] Platelet countOrdered By: Hernesto Dunn on 10-28-2024 Platelets (Bld) [#/Vol] 142 10*3/uL Low 150-450 [facility] Platelets LM Ql (Bld)Ordered By: Alber Dunn on 10-28-2024 Platelet Estimate ADEQUATE ADEQ [facility] Potassium (Unsp spec) [Mass/ Vol]Ordered By: Alber Dunn on 10-28-2024 Potassium [Moles/Vol] 4.5 mmol/L 3.3-5.1 [facility] Comment on above: Hemolysis present, R esults could be affected. Protein Test strip Ql (U)Ord ered By: Alber Dunn on 10-28-2024 Protein Ql (U) 500 mg/dl High Negative [facility] RBC Auto (Bld) [#/Vol]Ordere d By: Alber Dunn on 10-28-2024 RBC (Bld) [#/Vol] 4.09 10*6/uL Low 4.6-6.2 [facility] RBC morphology finding Nom ( Bld)Ordered By: Alber Dunn on 10-28-2024 Red Blood Cell Morphology N CHROM NORMAL NORM C&C [facility] Serum creatinine measurement (mass/volume)Ordered By: Alber Dunn on 10-28-2024 Creatinine [Mass/Vol] 1.33 mg/dL High 0.70-1.20 [facility] Serum globulin measurementOr dered By: Alber Dunn on 10-28-2024 Globulin (S) [Mass/Vol] 3.4 g/dL 2.2-4.2 [facility] Serum glucose measurement (m ass/volume)Ordered By: Alber Dunn on 10-28-2024 Glucose [Mass/Vol] 338 mg/dL High 70-99 [facility] Serum or plasma alanine thomas otransferase (ALT) measurementOrdered By: Alber Dunn on 10-28-2024 ALT [Catalytic activity/Vol] 23 U/L <47 [facility] Serum or plasma albumin roosevelt urement (mass/volume)Ordered By: Alber Dunn on 10-28-2024 Albumin [Mass/Vol] 2.5 g/dL Low 3.5-5.0 [facility] Serum or plasma albumin/glob ulin mass ratioOrdered By: Alber Dunn on 10-28-2024 Albumin/Globulin [Mass ratio] 0.7 {ratio} Low 0.9-2.4 [facility] Serum or plasma alkaline kendrick sphatase measurementOrdered By: Alber Dunn on 10-28-2024 ALP [Catalytic activity/Vol] 274 U/L High 40-129 [facility] Serum or plasma calcium roosevelt urement (mass/volume)Ordered By: Alber Dunn on 10-28-2024 Calcium [Mass/Vol] 9.2 mg/dL 7.6-11.0 [facility] Serum or plasma urea nitroge n measurement (mass/volume)Ordered By: Alber Dunn on 10-28-2024 Urea nitrogen [Mass/Vol] 25 mg/dL High 4-19 [facility] Sodium levelOrdered By: Alber Dunn on 10-28-2024 Sodium [Moles/Vol] 128 mmol/L Low 133-145 [facility] Total proteinOrdered By: Viraj Dunn on 10-28-2024 Protein [Mass/Vol] 5.9 g/dL 5.9-8.4 [facility] Urine blood detectionOrdered By: Alber Dunn on 10-28-2024 Urine Occult Blood 250 /ul High Negative [facility] Urine clarityOrdered By: Viraj Dunn on 10-28-2024 Clarity (U) Cloudy Clear [facility] Urine color determinationOrd ered By: Alber Dunn on 10-28-2024 Color (U) Red Yellow [facility] Urine leukocyte esterase det ection by dipstickOrdered By: Alber Dunn on 10-28-2024 Leukocyte esterase Test strip Ql (U) 500 /ul High Negative [facility] Urine pHOrdered By: Alber Khalil ght on 10-28-2024 pH (U) 6.5 [pH] 5.0 - 8.0 [facility] Urine sediment bacteria coun t by microscopy (number/high power field)Ordered By: Alber Dunn on 10-28-2024 Bacteria LM.HPF (Urine sed) [#/Area] 1 /[HPF] None Seen [facility] Urine specific gravity measu rementOrdered By: Alber Dunn on 10-28-2024 Specific gravity (U) [Rel density] 1.015 1.002-1.030 [facility] Urobilinogen Ql (U)Ordered B y: Alber Dunn on 10-28-2024 Urine Urobilinogen Normal mg/dl Normal [facility] White blood cell (WBC) count Ordered By: Alber Dunn on 10-28-2024 WBC (Bld) [#/Vol] 22.9 10*3/uL High 4.4-11.0 [facility] White blood cell countOrdere d By: Alber Dunn on 10-28-2024 Urine WBC >100 SEEN /hpf 0-5 [facility] APTTon 10-04-2024 aPTT Coag (PPP) [Time] 40 s High Un [facility] Albuminon 10-04-2024 Albumin (Body fld) [Mass/Vol] <0.5 Normal Not established [facility] Comment on above: Order Comment: Venip uncture immediately after or during the administration of Metamizole may lead to falsely low results. Testing should be performed immediately prior to Metamizole dosing. Performed By: #### 2 524-7 #### GOMES ALYSSA ([id number]) [facility] ([facility]) [facility] [place] [address] Bacteria identifiedon 2024 Bacteria identified Cx Nom (Body fld) Test: Sterile Fluid Culture/Smear Specimen Source: Pleural Specimen Type: Fluid Specimen Date: 10/04/20241713 Result Date: 10/08/2024824 Result Status: Final result Resulting Lab: [facility] [id number] [place] [id number] CULTURE No growth aerobically and anaerobically STAIN (1+) Rare Polymorphonuclear leukocytes No organisms seen Normal [facility] Comment on above: Performed By: #### 2 524-7 #### MIREYA SHAH ([id number]) [facility] ([facility]) [address] [place] [address] Basic metabolic 2000 panelon 10-04-2024 Anion gap [Moles/Vol] 8 mmol/L Low 10 - 2 0 mmol/L [facility] Calcium [Mass/Vol] 8.1 mg/dL Low 8.6 - 10. 3 mg/dL [facility] Chloride [Moles/Vol] 109 mmol/L High 98 - 10 7 mmol/L [facility] CO2 [Moles/Vol] 24 mmol/L 21 - 32 mmol/L [facility] Creatinine [Mass/Vol] 0.73 mg/dL 0.50 - 1.30 mg/dL [facility] eGFR - PINF [facility] Comment on above: Calculations of patric mated GFR are performed using the 2020 CKD-EPI Study Refit equation without the race variable for the IDMS-Traceable creatinine methods. https://jasn.asnjournals.org/content//ASN.2020 701260 Glucose [Mass/Vol] 197 mg/dL High 74 - 99 mg/dL [facility] Potassium [Moles/Vol] 3.9 mmol/L 3.5 - 5.3 mmol/L [facility] Sodium [Moles/Vol] 137 mmol/L 136 - 145 mmol/L [facility] Urea nitrogen [Mass/Vol] 17 mg/dL 6 - 23 mg/dL [facility] Anion gap [Moles/Vol] 8 mmol/L Low 10-20 [facility] Comment on above: Performed By: #### 2 4321-2 #### MIREYA SHAH ([id number]) [facility] ([facility]) [facility] [place] [address] Calcium [Mass/Vol] 8.1 mg/dL Low 8.6-10.3 [facility] Comment on above: Performed By: #### 2 4321-2 #### MIREYA SHAH ([id number]) [facility] ([facility]) [facility] [place] [address] Chloride [Moles/Vol] 109 mmol/L High 98-107 [facility] Comment on above: Performed By: #### 2 4321-2 #### MIREYA SHAH ([id number]) [facility] ([facility]) [facility] [place] [address] CO2 [Moles/Vol] 24 mmol/L Normal 21-32 [facility] Comment on above: Performed By: #### 2 4321-2 #### MIREYA SHAH ([id number]) [facility] ([facility]) [address] [place] [address] Creatinine [Mass/Vol] 0.73 mg/dL Normal 0.50-1.30 [facility] Comment on above: Performed By: #### 2 4321-2 #### MIREYA SHAH ([id number]) [facility] ([facility]) [address] [place] [address] GFR/1.73 sq M.predicted MDRD (S/P/Bld) [Vol rate/Area] mL/min/{1.73_m2} Normal >60 [facility] Comment on above: Result Comment: Calc ulations of estimated GFR are performed using the 2020 CKD-EPI Study Refit equation without the race variable for the IDMS-Traceable creatinine methods. https://jasn.asnjournals.org/content/early//ASN.2020 641275 Performed By: #### 2 4321-2 #### MIREYA SHAH ([id number]) [facility] ([facility]) [facility] [place] [address] Glucose [Mass/Vol] 197 mg/dL High 74-99 [facility] Comment on above: Performed By: #### 2 4321-2 #### MIREYA SHAH ([id number]) [facility] ([facility]) [facility] [place] [address] Potassium [Moles/Vol] 3.9 mmol/L Normal 3.5-5.3 [facility] Comment on above: Performed By: #### 2 4321-2 #### MIREYA SHAH ([id number]) [facility] ([facility]) [address] [place], [place] [id number] Sodium [Moles/Vol] 137 mmol/L Normal 136-145 [facility] Comment on above: Performed By: #### 2 4321-2 #### MIREYA SHAH ([id number]) [facility] ([facility]) [address] [place], [place] [id number] Urea nitrogen [Mass/Vol] 17 mg/dL Normal 6-23 [facility] Comment on above: Performed By: #### 2 4321-2 #### MIREYA SHAH ([id number]) [facility] ([facility]) [address] [place] [address] CBC W Auto Differential pane l (Bld)on 10-04-2024 Basophils (Bld) [#/Vol] 0.02 10*3/uL [facility] Basophils/100 WBC (Bld) 0.4 % 0.0 - 2.0 % [facility] Eosinophils (Bld) [#/Vol] 0.15 10*3/uL [facility] Eosinophils/100 WBC (Bld) 2.7 % 0.0 - 6.0 % [facility] Erythrocyte distribution width (RBC) [Ratio] 22.1 % High 11.5 - 14.5 % [facility] Hematocrit (Bld) [Volume fraction] 29.8 % Low 41.0 - 52.0 % [facility] Hemoglobin (Bld) [Mass/Vol] 9.3 g/dL Low 13.5 - 17.5 g/dL [facility] Immature granulocytes (Bld) [#/Vol] 0.01 10*3/uL [facility] Immature granulocytes/100 WBC (Bld) 0.2 % 0.0 - 0.9 % [facility] Comment on above: Immature Granulocyte Count (IG) includes promyelocytes, myelocytes and metamyelocytes but does not include bands. Percent differential counts (%) should be interpreted in the context of the absolute cell counts (cells/UL). Interpretation and review of laboratory results Abnormal [facility] Lymphocytes (Bld) [#/Vol] 0.64 10*3/uL Low [facility] Lymphocytes/100 WBC (Bld) 11.5 % 13.0 - 44.0 % [facility] MCH (RBC) [Entitic mass] 30 pg 26.0 - 34.0 pg [facility] MCHC (RBC) [Mass/Vol] 31.2 g/dL Low 32.0 - 36.0 g/dL [facility] MCV (RBC) [Entitic vol] 96 fL 80 - 100 fL [facility] Monocytes (Bld) [#/Vol] 0.46 10*3/uL [facility] Monocytes/100 WBC (Bld) 8.3 % 2.0 - 10.0 % [facility] Neutrophils (Bld) [#/Vol] 4.28 10*3/uL [facility] Comment on above: Percent differential counts (%) should be interpreted in the context of the absolute cell counts (cells/uL). Neutrophils/100 WBC (Bld) 76.9 % 40.0 - 80.0 % [facility] Nucleated RBC/100 WBC (Bld) [Ratio] 0 % [facility] Platelets (Bld) [#/Vol] 65 10*3/uL Low [facility] RBC (Bld) [#/Vol] 3.1 10*6/uL Low [facility] WBC (Bld) [#/Vol] 5.6 10*3/uL [facility] Basophils (Bld) [#/Vol] 0.02 x10*3/uL Normal 0.00-0.10 [facility] Comment on above: Performed By: #### 5 7021-8 #### GOMES ALYSSA ([id number]) [facility] ([facility]) [address] [place] [address] Basophils/100 WBC (Bld) 0.4 % Normal 0.0-2.0 [facility] Comment on above: Performed By: #### 5 7021-8 #### MIREYA SHAH ([id number]) [facility] ([facility]) [address] [place] [address] Eosinophils (Bld) [#/Vol] 0.15 x10*3/uL Normal 0.00-0.70 [facility] Comment on above: Performed By: #### 5 7021-8 #### MIREYA SHAH ([id number]) [facility] ([facility]) [address] [place] [address] Eosinophils/100 WBC (Bld) 2.7 % Normal 0.0-6.0 [facility] Comment on above: Performed By: #### 5 7021-8 #### MIREYA SHAH ([id number]) [facility] ([facility]) [address] [place] [address] Erythrocyte distribution width (RBC) [Ratio] 22.1 % High 11.5-14.5 [facility] Comment on above: Performed By: #### 5 7021-8 #### MIREYA SHAH ([id number]) [facility] ([facility]) [address] [place] [address] Hematocrit (Bld) [Volume fraction] 29.8 % Low 41.0-52.0 [facility] Comment on above: Performed By: #### 5 7021-8 #### MIREYA SHAH ([id number]) [facility] [facility] [address] [place] [address] 14005 Hemoglobin (Bld) [Mass/Vol] 9.3 g/dL Low 13.5-17.5 [facility] Comment on above: Performed By: #### 5 7021-8 #### MIREYA SHAH ([id number]) [facility] ([facility]) [address] [place] [address] 37621 Immature granulocytes (Bld) [#/Vol] 0.01 x10*3/uL Normal 0.00-0.70 [facility] Comment on above: Performed By: #### 5 7021-8 #### MIREYA SHAH ([id number]) [facility] ([facility]) [address] [place] [address] 77969 Immature granulocytes/100 WBC (Bld) 0.2 % Normal 0.0-0.9 [facility] Comment on above: Result Comment: Danielle ture Granulocyte Count (IG) includes promyelocytes, myelocytes and metamyelocytes but does not include bands. Percent differential counts (%) should be interpreted in the context of the absolute cell counts (cells/UL). Performed By: #### 5 7021-8 #### MIREYA SHAH ([id number]) [facility] ([facility]) [address] [place] [address] Lymphocytes (Bld) [#/Vol] 0.64 x10*3/uL Low 1.20-4.80 [facility] Comment on above: Performed By: #### 5 7021-8 #### MIREYA SHAH ([id number]) [facility] ([facility]) [address] [place], [place] [address] Lymphocytes/100 WBC (Bld) 11.5 % Normal 13.0-44.0 [facility] Comment on above: Performed By: #### 5 7021-8 #### MIREYA SHAH ([id number]) [facility] ([facility]) [address] [place] [address] 35622 MCH (RBC) [Entitic mass] 30.0 pg Normal 26.0-34.0 [facility] Comment on above: Performed By: #### 5 7021-8 #### MIREYA SHAH ([id number]) [facility] ([facility]) [address] [place] [address] 78435 MCHC (RBC) [Mass/Vol] 31.2 g/dL Low 32.0-36.0 [facility] Comment on above: Performed By: #### 5 7021-8 #### MIREYA SHHA ([id number]) [facility] ([facility]) [address] [place] [address] 30425 MCV (RBC) [Entitic vol] 96 fL Normal 80-100 U [facility] Comment on above: Performed By: #### 5 7021-8 #### MIREYA SHAH ([id number]) [facility] ([facility]) [address] [place] [address] 40832 Monocytes (Bld) [#/Vol] 0.46 x10*3/uL Normal 0.10-1.00 [facility] Comment on above: Performed By: #### 5 7021-8 #### MIREYA SHAH ([id number]) [facility] ([facility]) [address] [place] [address] 29197 Monocytes/100 WBC (Bld) 8.3 % Normal 2.0-10.0 U [facility] Comment on above: Performed By: #### 5 7021-8 #### MIREYA SHAH ([id number]) [facility] ([facility]) [address] [place] [address] 59981 Neutrophils (Bld) [#/Vol] 4.28 x10*3/uL Normal 1.20-7.70 [facility] Comment on above: Result Comment: Perc ent differential counts (%) should be interpreted in the context of the absolute cell counts (cells/uL). Performed By: #### 5 7021-8 #### MIREYA SHAH ([id number]) [facility] ([facility]) [address] [place] [address] 33961 Neutrophils/100 WBC (Bld) 76.9 % Normal 40.0-80.0 [facility] Comment on above: Performed By: #### 5 7021-8 #### MIREYA SHAH ([id number]) [facility] ([facility]) [address] [place] [address] 89786 Nucleated RBC/100 WBC (Bld) [Ratio] 0.0 /100 WBCs Normal 0.0-0.0 [facility] Comment on above: Performed By: #### 5 7021-8 #### MIREYA SHAH ([id number]) [facility] ([facility]) [address] [place] [address] 36615 Platelets (Bld) [#/Vol] 65 x10*3/uL Low 150-450 [facility] Comment on above: Performed By: #### 5 7021-8 #### MIREYA SHAH ([id number]) [facility] ([facility]) [address] [place] [address] 67753 RBC (Bld) [#/Vol] 3.10 x10*6/uL Low 4.50-5.90 [facility] Comment on above: Performed By: #### 5 7021-8 #### MIREYA SHAH ([id number]) [facility] ([facility]) [facility] [place] [address] WBC (Bld) [#/Vol] 5.6 x10*3/uL Normal 4.4-11.3 [facility] Comment on above: Performed By: #### 5 7021-8 #### MIREYA SOHEILAASAD ([id number]) [facility] ([facility]) [address] [place] [address] CT ABDOMEN PELVIS W IV CONTR [place] 10-04-2024 CT ABDOMEN PELVIS W IV CONTRAST Interpreted By: Yohana Huang, STUDY: CT ABDOMEN PELVIS W IV CONTRAST; 10/04/2024 2:16 pm INDICATION: Signs/Symptoms:generaliz ed abdominal pain, hx of cirrhosis, recent paracentesis. COMPARISON: None. ACCESSION NUMBER(S): [id number] ORDERING CLINICIAN: SRIRAM OLEARY TECHNIQUE: CT of [...] Yohana Huang 10/04/2024 2:28 PM Dictation workstation: [id number] [facility] CT Abdomen and Pelvis W cont rast Jamari 10-04-2024 Coronary artery calcifications. Anasarca. Ascites. Small irregular liver consistent with cirrhosis. Extensive collateral vessels. Enlarged spleen. Ventral and inguinal hernias containing ascitic fluid. MACRO: none Signed by: Yohana Huang 10/04/2024 2:28 PM Dictation workstation: [id number] Interpreted By: Yohana Chen, STUDY: CT ABDOMEN PELVIS W IV CONTRAST; 10/04/2024 2:16 pm INDICATION: Signs/Symptoms:generaliz ed abdominal pain, hx of cirrhosis, recent paracentesis. COMPARISON: None. ACCESSION NUMBER(S): [id number] ORDERING CLINICIAN: SRIRAM OLEARY TECHNIQUE: CT of [...] cirrhosis, recent paracentesis. COMPARISON: None. ACCESSION NUMBER(S): [id number] ORDERING CLINICIAN: SRIRAM OLEARY TECHNIQUE: CT of [...] Yohana Huang 10/04/2024 2:28 PM Dictation workstation: [id number] [facility] Work Phone: Radiology Study observation (narrative) [facility] Work Phone: CT Abdomen and Pelvis W cont rast IVOrdered By: Yohana Huang on 10-04-2024 [facility] Work Phone: Cell count panel (Body fld)O rdered By: Fortino Mcgee on 10-04-2024 Clarity (Body fld) Hazy Abnormal Clear [facility] Color (Body fld) Straw Colorless, Straw, Yellow [facility] Interpretation and review of laboratory results Abnormal [facility] RBC Auto (Body fld) [#/Vol] 2000 /uL see comment [facility] WBC (Body fld) [#/Vol] 0.058 10*3/uL See Commen t [facility] Body Fluid cell coun t reference ranges have not been established by [facility]. Reference ranges provided are based on published references. [facility] Cell count panel (Body fld)o n 10-04-2024 Clarity (Body fld) Hazy Abnormal Clear [facility] Comment on above: Order Comment: Body Fluid cell count reference ranges have not been established by [facility]. Reference ranges provided are based on published references. Performed By: #### 3 4556-1 #### GOMES ALYSSA ([id number]) [facility] ([facility]) [address] [place] [address] Color (Body fld) Straw Normal Colorless, Straw, Yellow [facility] Comment on above: Order Comment: Body Fluid cell count reference ranges have not been established by [facility]. Reference ranges provided are based on published references. Performed By: #### 3 4556-1 #### MIREYA SHAH ([id number]) [facility] ([facility]) [facility] [place] [address] RBC Auto (Body fld) [#/Vol] 2000 /uL Normal see comment [facility] Comment on above: Order Comment: Body Fluid cell count reference ranges have not been established by [facility]. Reference ranges provided are based on published references. Performed By: #### 3 4556-1 #### MIREYA SHAH ([id number]) [facility] ([facility]) [address] [place] [address] WBC (Body fld) [#/Vol] 0.058 10*3/uL Normal See Commen t [facility] Comment on above: Order Comment: Body Fluid cell count reference ranges have not been established by [facility]. Reference ranges provided are based on published references. Performed By: #### 3 4556-1 #### MIREYA SHAH ([id number]) [facility] ([facility]) [address] [place] [address] Coagulation surface inducedo n 10-04-2024 aPTT Coag (PPP) [Time] 40 s High 26-36 [facility] Comment on above: Order Comment: The A PTT is no longer used for monitoring Unfractionated Heparin Therapy. For monitoring Heparin Therapy, use the Heparin Assay. Performed By: #### 1 4979-9 #### MIREYA SHAH ([id number]) [facility] ([facility]) [address] [place] [address] Coagulation tissue factor in ducedon 10-04-2024 PT Coag (PPP) [Time] 23.6 s High 9.8-12.4 [facility] Comment on above: Performed By: #### 5 902-2 #### MIREYA SHAH ([id number]) [facility] ([facility]) [address] [place], [place] [phone] Differential panel (Body fld )on 10-04-2024 Basophils/100 WBC (Body fld) 0 % not established [facility] Blasts/100 WBC Manual cnt (Body fld) 0 % not established [facility] Cells Counted Total (Body fld) [#] 100 [facility] Eosinophils/100 WBC Manual cnt (Body fld) 0 % see comment [facility] Immature Granulocytes %, Manual, Fluid 0 % not established [facility] Interpretation and review of laboratory results Abnormal [facility] Lymphocytes/100 WBC Manual cnt (Body fld) 19 % see comment [facility] Monocytes+Macrophages/1 00 WBC Manual cnt (Body fld) 17 % see comment [facility] Neutrophils/100 WBC (Body fld) 40 % see comment [facility] Other cells/100 WBC Manual cnt (Body fld) 24 % High not established [facility] Comment on above: Mesothelial cells no tianna by tech Plasma cells/100 WBC Manual cnt (Body fld) 0 % not established [facility] Body Fluid cell differential reference ranges have not been established by [facility]. Reference ranges provided are based on published references. [facility] Basophils/100 WBC (Body fld) 0 % Normal not established [facility] Comment on above: Order Comment: Body Fluid cell differential reference ranges have not been established by [facility]. Reference ranges provided are based on published references. Performed By: #### 2 9580-8 #### MIREYA SHAH ([id number]) [facility] ([facility]) [facility] [place] [address] Blasts/100 WBC Manual cnt (Body fld) 0 % Normal not established [facility] Comment on above: Order Comment: Body Fluid cell differential reference ranges have not been established by [facility]. Reference ranges provided are based on published references. Performed By: #### 2 9580-8 #### MIREYA SHAH ([id number]) [facility] ([facility]) [address] [place] [address] Cells Counted Total (Body fld) [#] 100 Normal [facility] Comment on above: Order Comment: Body Fluid cell differential reference ranges have not been established by [facility]. Reference ranges provided are based on published references. Performed By: #### 2 9580-8 #### MIREYA SHAH ([id number]) [facility] ([facility]) [address] [place] [address] Eosinophils/100 WBC Manual cnt (Body fld) 0 % Normal see comment [facility] Comment on above: Order Comment: Body Fluid cell differential reference ranges have not been established by [facility]. Reference ranges provided are based on published references. Performed By: #### 2 9580-8 #### MIREYA SHAH ([id number]) [facility] ([facility]) [address] [place] [address] IMMATURE GRANULOCYTES IN FLUID 0 % Normal not established [facility] Comment on above: Order Comment: Body Fluid cell differential reference ranges have not been established by [facility]. Reference ranges provided are based on published references. Performed By: #### 2 9580-8 #### MIREYA SHAH ([id number]) [facility] ([facility]) [address] [place] [address] 98428 Lymphocytes/100 WBC Manual cnt (Body fld) 19 % Normal see comment [facility] Comment on above: Order Comment: Body Fluid cell differential reference ranges have not been established by [facility]. Reference ranges provided are based on published references. Performed By: #### 2 9580-8 #### MIREYA SHAH ([id number]) [facility] ([facility]) [address] [place] [address] Monocytes+Macrophages/1 00 WBC Manual cnt (Body fld) 17 % Normal see comment [facility] Comment on above: Order Comment: Body Fluid cell differential reference ranges have not been established by [facility]. Reference ranges provided are based on published references. Performed By: #### 2 9580-8 #### MIREYA SHAH ([id number]) [facility] ([facility]) [address] [place] [address] 38520 Neutrophils/100 WBC (Body fld) 40 % Normal see comment [facility] Comment on above: Order Comment: Body Fluid cell differential reference ranges have not been established by [facility]. Reference ranges provided are based on published references. Performed By: #### 2 9580-8 #### MIREYA SHAH ([id number]) [facility] ([facility]) [address] [place] [address] Other cells/100 WBC Manual cnt (Body fld) 24 % High not established [facility] Comment on above: Order Comment: Body Fluid cell differential reference ranges have not been established by [facility]. Reference ranges provided are based on published references. Result Comment: Meso thelial cells noted by tech Performed By: #### 2 9580-8 #### MIREYA SHAH ([id number]) [facility] ([facility]) [facility] [place] [address] Plasma cells/100 WBC Manual cnt (Body fld) 0 % Normal not established [facility] Comment on above: Order Comment: Body Fluid cell differential reference ranges have not been established by [facility]. Reference ranges provided are based on published references. Performed By: #### 2 9580-8 #### MIREYA SHAH ([id number]) [facility] ([facility]) [address] [place] [address] Glucoseon 10-04-2024 Glucose (Body fld) [Mass/Vol] 200 mg/dL Normal Not established [facility] Comment on above: Order Comment: Venip uncture immediately after or during the administration of Metamizole may lead to falsely low results. Testing should be performed immediately prior to Metamizole dosing. Performed By: #### 2 524-7 #### MIREYA SHAH ([id number]) [facility] ([facility]) [address] [place], [place] [address] Hepatic function 2000 panelo n 10-04-2024 Albumin BCP dye [Mass/Vol] 2.4 g/dL Low 3.4 - 5.0 g/dL [facility] ALP [Catalytic activity/Vol] 212 U/L High 33 - 120 U/L [facility] ALT With P-5'-P [Catalytic activity/Vol] 46 U/L 10 - 52 U/L [facility] Comment on above: Patients treated wit h Sulfasalazine may generate falsely decreased results for ALT. AST With P-5'-P [Catalytic activity/Vol] 49 U/L High 9 - 39 U/L [facility] Bilirubin [Mass/Vol] 1.8 mg/dL High 0.0 - 1 .2 mg/dL [facility] Bilirubin.direct [Mass/Vol] 0.7 mg/dL High 0.0 - 0.3 mg/dL [facility] Protein [Mass/Vol] 5.7 g/dL Low 6.4 - 8.2 g/dL [facility] Albumin BCP dye [Mass/Vol] 2.4 g/dL Low 3.4-5.0 [facility] Comment on above: Performed By: #### 2 5-3 #### MIREYA SHAH ([id number]) [facility] ([facility]) [address] [place] [address] 22659 ALP [Catalytic activity/Vol] 212 U/L High 33-120 [facility] Comment on above: Performed By: #### 2 4324-3 #### MIREYA SHAH ([id number]) [facility] ([facility]) [address] [place] [address] 96142 ALT With P-5'-P [Catalytic activity/Vol] 46 U/L Normal 10-52 [facility] Comment on above: Result Comment: Argenis ents treated with Sulfasalazine may generate falsely decreased results for ALT. Performed By: #### 2 4324-3 #### MIREYA SHAH ([id number]) [facility] ([facility]) [facility] [place] [address] AST With P-5'-P [Catalytic activity/Vol] 49 U/L High 9-39 [facility] Comment on above: Performed By: #### 2 5-3 #### MIREYA SHAH ([id number]) [facility] ([facility]) [facility] [place] [address] Bilirubin [Mass/Vol] 1.8 mg/dL High 0.0-1.2 [facility] Comment on above: Performed By: #### 2 5-3 #### MIREYA SHAH ([id number]) [facility] ([facility]) [address] [place] [address] 51154 Bilirubin.direct [Mass/Vol] 0.7 mg/dL High 0.0-0.3 [facility] Comment on above: Performed By: #### 2 4325-3 #### MIREYA SHAH ([id number]) [facility] ([facility]) [address] [place] [address] 11625 Protein [Mass/Vol] 5.7 g/dL Low 6.4-8.2 [facility] Comment on above: Performed By: #### 2 4325-3 #### MIREYA SHAH ([id number]) [facility] ([facility]) [address] [place] [address] 69808 Lactateon 10-04-2024 Lactate [Moles/Vol] 2 mmol/L 0.4 - 2. 0 mmol/L [facility] Lactate [Moles/Vol] 2.0 mmol/L Normal 0.4-2.0 [facility] Comment on above: Order Comment: Venip uncture immediately after or during the administration of Metamizole may lead to falsely low results. Testing should be performed immediately prior to Metamizole dosing. Performed By: #### 2 524-7 #### MIREYA SHAH ([id number]) [facility] ([facility]) [address] [place] [address] 45663 Lactate [Moles/Vol]on 2024 Interpretation and review of laboratory results Normal [facility] Venipuncture immedia tely after or during the administration of Metamizole may lead to falsely low results. Testing should be performed immediately prior to Metamizole dosing. [facility] Lactate dehydrogenaseon LDH Lactate to pyruvate reaction (Body fld) [Catalytic activity/Vol] <25 Normal Not established. [facility] Comment on above: Order Comment: Venip uncture immediately after or during the administration of Metamizole may lead to falsely low results. Testing should be performed immediately prior to Metamizole dosing. Performed By: #### 2 524-7 #### MIREYA SHAH ([id number]) [facility] ([facility]) [address] [place] [address] 84375 Lipaseon 10-04-2024 Lipase [Catalytic activity/Vol] 56 U/L 9 - 82 U/L [facility] Lipase [Catalytic activity/V ol]on 10-04-2024 Interpretation and review of laboratory results Normal [facility] Venipuncture immedia tely after or during the administration of Metamizole may lead to falsely low results. Testing should be performed immediately prior to Metamizole dosing. [facility] No Panel Informationon 10-04 Interpretation and review of laboratory results Abnormal [facility] Interpretation and review of laboratory results Abnormal [facility] Non-pantograph transferrer cytology studyon Non-gynecological cytology method study Pathology report.total SEE COMMENT Non-gynecologic Cytology Case: [id number] Authorizing Provider: Joey Huang DO Collected: 10/04/2024 1714 Ordering Location: [facility] Received: 10/05/[address] [place] [address] Emergency Medicine Pathologist: Jarvis Guzman MD Specimen: ASCITIC FLUID Path report.final diagnosis SEE COMMENT A. ASCITIC FLUID: - NO MALIGNANT CELLS IDENTIFIED. Note: This case has been evaluated using a concentrated (ThinPrep) preparation. Laboratory comment SEE COMMENT Slide(s) initially screened by ABEL Castro at [address] [id number] By the signature on this report, the [...] Block) A1-1 Pap Stain NGYN ThinPrep Normal [facility] PT Coag (PPP) [Time]on 10-04 INR Coag (PPP) [Relative time] 2.1 {INR} High 0.9 - 1.1 [facility] INR Coag (PPP) [Relative time] 2.1 High 0.9-1.1 [facility] Comment on above: Performed By: #### 5 902-2 #### MIREYA SHAH ([id number]) [facility] ([facility]) [address] [place] [address] Paracentesison 10-04-2024 Joey Huang DO 10/04/2024 5:18 PM Paracentesis Date/Time: 10/04/2024 5:17 PM Performed by: Joey Huang DO Authorized by: Joey Huang DO Consent: Consent obtained: Written Consent given by: Patient Risks, benefits, and alternatives were discussed: yes Risks discussed: Bleeding, bowel perforation and infection Alternatives discussed: No treatment [place] protocol: Procedure explained and questions answered to [...] Adhesive bandage Post-procedure details: Procedure completion: Tolerated [facility] Work Phone: [facility] Work Phone: Proteinon 10-04-2024 Protein (Body fld) [Mass/Vol] g/dL Normal Not established [facility] Comment on above: Order Comment: Venip uncture immediately after or during the administration of Metamizole may lead to falsely low results. Testing should be performed immediately prior to Metamizole dosing. Performed By: #### 2 524-7 #### MIREYA SHAH ([id number]) [facility] ([facility]) [facility] [place] [address] Protime-INRon 10-04-2024 PT Coag (PPP) [Time] 23.6 s High [facility] Triacylglycerol lipaseon Lipase [Catalytic activity/Vol] 56 U/L Normal 9-82 [facility] Comment on above: Order Comment: Venip uncture immediately after or during the administration of Metamizole may lead to falsely low results. Testing should be performed immediately prior to Metamizole dosing. Performed By: #### 3 040-3 #### MIREYA SHAH ([id number]) [facility] ([facility]) [address] [place] [address] aPTT Coag (PPP) [Time]on The APTT is no longe r used for monitoring Unfractionated Heparin Therapy. For monitoring Heparin Therapy, use the Heparin Assay. [facility] pHon 10-04-2024 pH (Body fld) 7.82 Normal See Below [facility] Comment on above: Order Comment: Venip uncture immediately after or during the administration of Metamizole may lead to falsely low results. Testing should be performed immediately prior to Metamizole dosing. Performed By: #### [phone] #### MIREYA SHAH ([id number]) [facility] ([facility]) [address] [place] [address] [facility] deOrdered By: Boone Izquierdo on 09-14-2024 Bedside Glucose (Misc Panel) 134 mg/dL High 74-106 [facility] Comment on above: MANAGEMENT OF PATIEN T CARE PER NURSING PROTOCOL Glucose [Mass/Vol] 134 mg/dL High 74-106 [facility] Glucose measurement at bedside 134 mg/dL High 74-106 [facility] Blood urea nitrogen (BUN)/cr eatinine ratioOrdered By: Jae Ash on 09-12-2024 Urea nitrogen/Creatinine [Mass ratio] 7.6 mg/mg Low 10-20 [facility] Blood urea nitrogen (BUN)/creatinine ratio 7.6 RATIO Low 10-20 [facility] Calcium [Mass/Vol]Ordered By : Jae Ash on 09-12-2024 Serum or plasma calcium measurement (mass/volume) 8.1 mg/dL Low 8.5-10.1 [facility] Carbon dioxide measurementOr dered By: Jae Ash on 09-12-2024 CO2 [Moles/Vol] 20.0 mmol/L Low 21.0-32.0 [facility] Carbon dioxide measurement 20.0 mmol/L Low 21.0-32.0 [facility] Chloride measurementOrdered By: Jae Ash on 09-12-2024 Chloride [Moles/Vol] 109 mmol/L High 98-107 [facility] Chloride measurement 109 mmol/L High 98-107 [facility] Creatinine [Mass/Vol]Ordered By: Jae Ash on 09-12-2024 Serum or plasma creatinine measurement (mass/volume) 0.92 mg/dL 0.70-1.30 [facility] Erythrocyte distribution wid th (RBC) [Ratio]Ordered By: Jae Ash on 09-12-2024 Erythrocyte distribution width ratio 19.7 % High 11.6-14.6 [facility] Erythrocyte distribution width standard deviation 63.5 fl High 35.1-43.9 [facility] Erythrocyte distribution wid th ratioOrdered By: Jae Ash on 09-12-2024 Erythrocyte distribution width (RBC) [Ratio] 19.7 % High 11.6-14.6 [facility] Erythrocyte distribution wid th standard deviationOrdered By: Jae Ash on 09-12-2024 Erythrocyte distribution width (RBC) [Entitic vol] 63.5 fL High 35.1-43.9 [facility] Erythrocyte distribution width (RBC) [Ratio] 63.5 fl High 35.1-43.9 [facility] Estimated glomerular filtrat ion rate (GFR) AmericanOrdered By: Jae Ash on 09-12-2024 Estimated GFR (MDRD) Amer 108 mL/min >60 [facility] Comment on above: GFR Calc Estimated glomerular filtration rate (GFR) 108 mL/min >60 [facility] Estimation of creatinine carolina aranceOrdered By: Jae Ash on 09-12-2024 Estimated Creatinine Clearance Calc 71.80 ml/min [facility] Estimation of creatinine clearance 71.80 ml/min [facility] Glomerular filtration rate ( GFR) estimationOrdered By: Jae Ash on 09-12-2024 Estimated GFR (MDRD) Non-Af Amer 89 mL/min >60 [facility] Comment on above: Non- GFR Calc GFR/1.73 sq M.predicted among non-blacks MDRD (S/P/Bld) [Vol rate/Area] 89 mL/min/{1.73_m2} >60 [facility] Glomerular filtration rate (GFR) estimation 89 mL/min >60 [facility] Glucose measurementOrdered B y: Jae Ash on 09-12-2024 Glucose [Mass/Vol] 149 mg/dL High 74-106 [facility] Comment on above: Fasting Glucose resu lt greater than or equal to 126 mg/dL suggests DIABETES MELLITUS per A.D.A. criteria. Glucose measurement 149 mg/dL High 74-106 [facility] Hematocrit Auto (Bld) [Volum e fraction]Ordered By: Jae Ash on 09-12-2024 Hematocrit (Bld) [Volume fraction] 25.8 % Low 40-54 [facility] Automated blood hematocrit (percentage) 25.8 % Low 40-54 [facility] Hemoglobin measurementOrdere d By: Jae Ash on 09-12-2024 Hemoglobin (Bld) [Mass/Vol] 8.1 g/dL Low 13.0-16.5 [facility] Hemoglobin measurement 8.1 g/dL Low 13.0-16.5 [facility] MCV (RBC) [Entitic vol]Order ed By: Jae Ash on 09-12-2024 MCV (mean corpuscular volume) determination 90.5 fL 80-94 [facility] MCV (mean corpuscular volume ) determinationOrdered By: Jae Ash on 09-12-2024 MCV (RBC) [Entitic vol] 90.5 fL 80-94 [facility] Mean corpuscular hemoglobin (MCH) determinationOrdered By: Jae Ash on 09-12-2024 MCH (RBC) [Entitic mass] 28.4 pg 27.0-32.0 [facility] Mean corpuscular hemoglobin (MCH) determination 28.4 pg 27.0-32.0 [facility] Mean corpuscular hemoglobin concentration (MCHC) determinationOrdered By: Jae Ash on 09-12-2024 MCHC (RBC) [Mass/Vol] 31.4 g/dL Low 32-36 [facility] Comment on above: Delta: 33.1 on 09/10 Mean corpuscular hemoglobin concentration (MCHC) determination 31.4 g/dL Low 32-36 [facility] Mean platelet volume determi nationOrdered By: Jae Ash on 09-12-2024 Platelet mean volume (Bld) [Entitic vol] 11.9 fL 6.2-12.0 [facility] Mean platelet volume determination 11.9 fl 6.2-12.0 [facility] Platelet countOrdered By: Sky Ash on 09-12-2024 Platelets (Bld) [#/Vol] 115 10*3/uL Low 150-450 [facility] Platelet count 115 K/mm3 Low 150-450 [facility] Potassium measurementOrdered By: Jae Ash on 09-12-2024 Potassium [Moles/Vol] 3.4 mmol/L Low 3.5-5.1 [facility] Potassium measurement 3.4 mmol/L Low 3.5-5.1 [facility] RBC Auto (Bld) [#/Vol]Ordere d By: Jae Ash on 09-12-2024 RBC (Bld) [#/Vol] 2.85 10*6/uL Low 4.6-6.2 [facility] Automated blood erythrocyte count 2.85 M/mm3 Low 4.6-6.2 [facility] Serum anion gap measurementO rdered By: Jae Ash on 09-12-2024 Anion gap [Moles/Vol] 7 mmol/L 5-15 [facility] Serum anion gap measurement 7 5-15 [facility] Serum or plasma calcium roosevelt urement (mass/volume)Ordered By: Jae Ash on 09-12-2024 Calcium [Mass/Vol] 8.1 mg/dL Low 8.5-10.1 [facility] Serum or plasma creatinine m easurement (mass/volume)Ordered By: Jae Ash on 09-12-2024 Creatinine [Mass/Vol] 0.92 mg/dL 0.70-1.30 [facility] Comment on above: The validity of the calculated GFR & GFRAA in patients over 70 years has not been determined. Clinical correlation is essential. Serum or plasma urea nitroge n measurement (mass/volume)Ordered By: Jae Ash on 09-12-2024 Urea nitrogen [Mass/Vol] 7 mg/dL 7-18 [facility] Sodium levelOrdered By: Pasha Ash on 09-12-2024 Sodium [Moles/Vol] 136 mmol/L 136-145 [facility] Sodium level 136 mmol/L 136-145 [facility] Urea nitrogen [Mass/Vol]Orde red By: Jae Ash on 09-12-2024 Serum or plasma urea nitrogen measurement (mass/volume) 7 mg/dL 7-18 [facility] White blood cell (WBC) count Ordered By: Jae Ash on 09-12-2024 WBC (Bld) [#/Vol] 7.4 10*3/uL 4.4-11.0 [facility] White blood cell (WBC) count 7.4 K/mm3 4.4-11.0 [facility] Serum or plasma trough vanco mycin levelOrdered By: Thai Thurston on 09-10-2024 Vancomycin trough [Mass/Vol] 15.7 ug/mL High 5.0-15.0 [facility] Vancomycin trough [Mass/Vol] Ordered By: Thai Thurston on 09-10-2024 Vancomycin Level Trough 15.7 ug/mL High 5.0-15.0 [facility] Comment on above: VANCOMYCIN STANDARED DRUG THERAPY TROUGH LEVEL: 5.0 - 15.0 mg/L VANCOMYCIN HIGH INTENSITY THERAPY TROUGH LEVEL: 15.0 - 20.0 mg/L High Intensity therapy recommended for serious lifethreatening infections include:- Jkfpyhwwnk-Zdxoripqhwht-Xkipluvak (Ventilator/Healtcare Associated)-Sepsis PLEASE CONTACT PHARMACY SERVICES (#[id number]) FOR INTERPRETATIONOF RESULTS. Serum or plasma trough vancomycin level 15.7 ug/mL High 5.0-15.0 [facility] Serum or plasma vancomycin l evel (mass/volume)Ordered By: Maria Guadalupe Shore on 09-08-2024 Vancomycin [Mass/Vol] 16.5 ug/mL High 0.0-15.0 [facility] Vancomycin [Mass/Vol]Ordered By: Maria Guadalupe Shore on 09-08-2024 Random Vancomycin Level 16.5 ug/mL High 0.0-15.0 [facility] Comment on above: VANCOMYCIN STANDARD DRUG THERAPY: CRITICAL VALUE IS > 15.0 mg/L VANCOMYCIN HIGH INTENSITY THERAPY: CRITICAL VALUE IS > 20.0 mg/L PLEASE CONTACT PHARMACY SERVICES (#[id number]) FOR INTERPRETATIONOF RESULTS. THIS RESULT DOES NOT REPRESENT A PEAK OR TROUGHLEVEL FOR THIS DRUG. Serum or plasma vancomycin level (mass/volume) 16.5 ug/mL High 0.0-15.0 [facility] Absolute lymphocyte countOrd ered By: Anurag Irene on 09-07-2024 Lymphocytes Auto (Unsp spec) [#/Vol] 0.95 10*3/uL 0.83-4.51 [facility] Absolute neutrophil countOrd ered By: Anurag Irene on 09-07-2024 Neutrophils (Bld) [#/Vol] 13.3 10*3/uL High 2.0-7.7 [facility] Absolute neutrophil count 13.3 X10^3/uL High 2.0-7.7 [facility] Automated lymphocyte count a s percentage of total leukocytesOrdered By: Anurag Irene on 09-07-2024 Lymphocytes/100 WBC Auto (Unsp spec) 5.8 % Low 19-41 [facility] Basophil percentageOrdered B y: Anurag Irene on 09-07-2024 Basophils/100 WBC (Bld) 0.4 % 0-1 [facility]ophil [facility] 0.4 % 0-[facility] Eosinophil percentageOrdered By: Anurag Irene on 09-07-2024 Eosinophils/100 WBC (Bld) 3.0 % 0-5 [facility] Eosinophil percentage 3.0 % 0-5 [facility] Immature granulocytes/100 WB C Auto (Bld)Ordered By: Anurag Irene on 09-07-2024 Immature granulocytes/100 WBC (Bld) 1.400 % High 0.0-0.9 [facility] Comment on above: IG% - Immature Granu locytes (promyelocytes, myelocytes and metamyelocytes) > 1% indicates that a LEFT SHIFT is Present. Automated immature granulocyte percentage 1.400 % High 0.0-0.9 [facility] Lymphocytes Auto (Unsp spec) [#/Vol]Ordered By: Anurag Irene on 09-07-2024 Lymphocytes (Bld) [#/Vol] 0.95 10*3/uL 0.83-4.51 [facility] Absolute lymphocyte count 0.95 X10^3/uL 0.83-4.51 [facility] Lymphocytes/100 WBC Auto (Un sp spec)Ordered By: Anurag Irene on 09-07-2024 Lymphocytes/100 WBC (Bld) 5.8 % Low 19-41 [facility] Automated lymphocyte count as percentage of total leukocytes 5.8 % Low 19-41 [facility] Monocyte percentageOrdered B y: Anurag Irene on 09-07-2024 Monocytes/100 WBC (Bld) 8.6 % 0-10 [facility] Monocyte percentage 8.6 % 0-10 [facility] Neutrophil percentageOrdered By: Anurag Irene on 09-07-2024 Neutrophils/100 WBC (Bld) 80.8 % High 47-70 [facility] Neutrophil percentage 80.8 % High 47-70 [facility] Nucleated red blood cell per centageOrdered By: Anurag Irene on 09-07-2024 Nucleated RBC/100 WBC (Bld) [Ratio] 0 % 0-5 [facility] Nucleated red blood cell percentage 0 % 0-5 [facility] Blood cultureOrdered By: [place] Irene on 09-06-2024 Bacteria identified Cx Nom (Bld) No growth in 5 days. [facility] Blood culture No growth in 5 days. [facility] Blood cultureOrdered By: Shi Joiner on 09-05-2024 Bacteria identified Cx Nom (Bld) Staphylococcus epidermidis Abnormal [facility] Blood culture Staphylococcus epidermidis Abnormal [facility] Folic acid measurementOrdere d By: Hill Wright on 09-05-2024 Folate 30.10 ng/mL 3.1-55.4 [facility] Folic acid measurement 30.10 ng/mL 3.1-55.4 [facility] Lactic acid measurementOrder ed By: Hill Wright on 09-05-2024 Lactate [Moles/Vol] 2.3 mmol/L High 0.4-2.0 [facility] Comment on above: Critical Result(s) C alled at: 08:26:40 09/05/2024 by: Lucy Haque to [facility]. Results read back by same. Lactic acid measurement 2.3 mmol/L High 0.4-2.0 [facility] Serum ethanol measurementOrd ered By: Hill Wright on 09-05-2024 Ethyl Alcohol Level 4.0 mg/dL [facility] Comment on above: The serum:whole bloo d ethanol ratio is approximately 1.14and varies slightly with hematocrit. Medical Alcohol reference interval and critical value innon-tolerant individuals; 50 - 100 Impairment 100 Intoxication 100 - 250 Severe Poisoning 250 - 400 Deep/possible fatal coma Serum ethanol measurement 4.0 mg/dL [facility] Vitamin B12 measurementOrder ed By: Hill Wright on 09-05-2024 Vitamin B12 Level > 2000 pg/mL High 211-911 [facility] Vitamin B12 measurement > 2000 pg/mL High 211-911 [facility] ALP [Catalytic activity/Vol] Ordered By: Rachel Joiner on 09-04-2024 Serum or plasma alkaline phosphatase measurement 269 U/L High 45-117 [facility] ALT [Catalytic activity/Vol] Ordered By: Rachel Joiner on 09-04-2024 Serum or plasma alanine aminotransferase (ALT) measurement 79 U/L High 16-61 [facility] Albumin [Mass/Vol]Ordered By : Rachel Joiner on 09-04-2024 Serum or plasma albumin measurement (mass/volume) 2.0 g/dL Low 3.2-5.0 [facility] Bilirubin Test strip Ql (U)O rdered By: Rachel Joiner on 09-04-2024 Bilirubin Ql (U) 1 mg/dL High Negative [facility] Comment on above: COLOR OF URINE MAY A FFECT DIPSTICK RESULTS. Bilirubin directOrdered By: Rachel Joiner on 09-04-2024 Bilirubin.direct [Mass/Vol] 1.80 mg/dL High 0.00-0.30 [facility] Bilirubin, totalOrdered By: Rachel Joiner on 09-04-2024 Bilirubin [Mass/Vol] 3.10 mg/dL High 0.20-1.00 [facility] Comment on above: For patients on eltr ombopag therapy, use of Dimension [place] TBIL is not recommended. Bilirubin, total 3.10 mg/dL High 0.20-1.00 [facility] Bilirubin.direct [Mass/Vol]O rdered By: Rachel Joiner on 09-04-2024 Bilirubin direct 1.80 mg/dL High 0.00-0.30 [facility] Blood cultureOrdered By: Shi Joiner on 09-04-2024 Bacteria identified Cx Nom (Bld) [facility] Clarity (U)Ordered By: Kaz Joiner on 09-04-2024 Urine clarity Clear Clear [facility] Color (U)Ordered By: Rachel Joiner on 09-04-2024 Urine color determination Yellow Yellow [facility] Epithelial cells.squamous LM Ql (Urine sed)Ordered By: Rachel Joiner on 09-04-2024 Epithelial cells.squamous LM.HPF (Urine sed) [#/Area] 0 /[HPF] 0-5 [facility] Glucose Ql (U)Ordered By: Brendan Joiner on 09-04-2024 Urine Glucose (UA) Normal mg/dl Normal [facility] Urine glucose detection Normal mg/dl Normal [facility] HbA1c (Bld) [Mass fraction]O rdered By: Hill Wright on 09-04-2024 Hemoglobin A1c percentage 7.3 % High 3.8-5.6 [facility] Hemoglobin A1c percentageOrd ered By: Hill Wright on 09-04-2024 HbA1c (Bld) [Mass fraction] 7.3 % High 3.8-5.6 [facility] Comment on above: Normal < 5.7 % Predi abetic 5.7 - 6.4 % Diabetic >or= 6.5 % Please note range changes. Ketones Test strip Ql (U)Ord ered By: Rachel Joiner on 09-04-2024 Ketones Ql (U) Negative Negative [facility] Laboratory - Chemistry and C hemistry - challengeOrdered By: Rachel Joiner on 09-04-2024 AST [Catalytic activity/Vol] 156 U/L High 15-37 [facility] Leukocyte esterase Test stri p Ql (U)Ordered By: Rachel Joiner on 09-04-2024 Urine leukocyte esterase detection by dipstick 100 /ul High Negative [facility] Methadone, urineOrdered By: Rachel Joiner on 09-04-2024 Urine Methadone Screen Negative < 300 ng/mL [facility] Microorganism identified Cx Nom (Unsp spec)Ordered By: Rachel Joiner on 09-04-2024 Bacteria Detection (PCR) Staphylococcus epidermidis Abnormal [facility] Bacteria Detection (PCR) mecA Resistance Marker Abnormal [facility] Organism identification mecA Resistance Marker Abnormal [facility] Microscopic analysis of urin e for red blood cells (RBC)Ordered By: Rachel Joiner on 09-04-2024 Urine RBC 10-25 SEEN /hpf 0-5 [facility] Microscopic analysis of urine for red blood cells (RBC) 10-25 SEEN /hpf 0-5 [facility] Mucus LM Ql (Urine sed)Order ed By: Rachel Joiner on 09-04-2024 Mucus Ql (Urine sed) 0 SEEN /hpf [facility] Nitrite Test strip Ql (U)Ord ered By: Rachel Joiner on 09-04-2024 Nitrite Ql (U) Negative Negative [facility] No Panel InformationOrdered By: Rachel Joiner on 09-04-2024 156 U/L High 15-37 [facility] Urine Drug Screen Comment [facility] Comment on above: CONFIRMATORY TESTING FOR ALL [...] MUST BE ORDERED SEPARATELY. USE TESTMNEMONIC: UTCA [facility] Organism identificationOrder ed By: Rachel Joiner on 09-04-2024 Microorganism identified Cx Nom (Unsp spec) Staphylococcus epidermidis Abnormal [facility] Microorganism identified Cx Nom (Unsp spec) mecA Resistance Marker Abnormal [facility] Protein Test strip Ql (U)Ord ered By: Rachel Joiner on 09-04-2024 Protein Ql (U) 30 mg/dl High Negative [facility] Urine protein assay by test strip, semi-quantitative 30 mg/dl High Negative [facility] Quantitative urine opiates m easurementOrdered By: Rachel Joiner on 09-04-2024 Opiates Ql (U) Positive High < 300 ng/mL [facility] Quantitative urine opiates measurement Positive High < 300 ng/mL [facility] Screening prostate specific antigen (PSA) measurementOrdered By: Hill Wright on 09-04-2024 Prostate Specific Antigen Screen 1.41 ng/mL 0.00-4.00 [facility] Comment on above: This test was perfor med using the TPSA assay method [facility]. Values obtained with differentassay methods cannot be used interchangably.When changing PSA assays in the course of monitoring apatient, additional sequential testing should be carriedout to confirm baseline values. Screening prostate specific antigen (PSA) measurement 1.41 ng/mL 0.00-4.00 [facility] Serum globulin measurementOr dered By: Rachel Joiner on 09-04-2024 Globulin (S) [Mass/Vol] 4.1 g/dL 2.2-4.2 [facility] Serum globulin measurement 4.1 g/dL 2.2-4.2 [facility] Serum or plasma alanine thomas otransferase (ALT) measurementOrdered By: Rachel Joiner on 09-04-2024 ALT [Catalytic activity/Vol] 79 U/L High 16-61 [facility] Serum or plasma albumin roosevelt urement (mass/volume)Ordered By: Rachel Joiner on 09-04-2024 Albumin [Mass/Vol] 2.0 g/dL Low 3.2-5.0 [facility] Serum or plasma alkaline kendrick sphatase measurementOrdered By: Rachel Joiner on 09-04-2024 ALP [Catalytic activity/Vol] 269 U/L High 45-117 [facility] Serum or plasma thyroid stim ulating hormone (TSH) measurement (units/volume)Ordered By: Hill Wright on 09-04-2024 TSH Qn 0.826 uIU/mL 0.358-3.740 [facility] Specific gravity (U) [Rel de nsity]Ordered By: Rachel Joiner on 09-04-2024 Urine specific gravity measurement 1.020 1.002-1.030 [facility] Squamous epithelial cells de tection in urine sediment by light microscopyOrdered By: Rachel Joiner on 09-04-2024 Epithelial cells.squamous LM Ql (Urine sed) 0 SEEN /hpf 0-5 [facility] Squamous epithelial cells detection in urine sediment by light microscopy 0 SEEN /hpf [facility] TSH QnOrdered By: Hill patino on 09-04-2024 Thyroid Stimulating Hormone (TSH) 0.826 uIU/mL 0.358-3.740 [facility] Serum or plasma thyroid stimulating hormone (TSH) measurement (units/volume) 0.826 uIU/mL 0.358-3.740 [facility] Total proteinOrdered By: Shi Joiner on 09-04-2024 Protein [Mass/Vol] 6.1 g/dL Low 6.4-8.2 [facility] Total protein 6.1 g/dL Low 6.4-8.2 [facility] Urine amphetamine measuremen tOrdered By: Rachel Joiner on 09-04-2024 Amphetamines Ql (U) Negative <1000 ng/mL [facility] Urine barbiturates measureme ntOrdered By: Rachel Joiner on 09-04-2024 Urine Barbiturates Screen Negative < 200 ng/mL [facility] Urine benzodiazepine levelOr dered By: Rachel Joiner on 09-04-2024 Benzodiazepines Ql (U) Negative < 200 ng/mL [facility] Urine blood detectionOrdered By: Rachel Joiner on 09-04-2024 Urine Occult Blood 150 /ul High Negative [facility] Urine blood detection 150 /ul High Negative [facility] Urine clarityOrdered By: Shi Joiner on 09-04-2024 Clarity (U) Clear Clear [facility] Urine cocaine levelOrdered B y: Rachel Joiner on 09-04-2024 Cocaine Ql (U) Negative < 300 ng/mL [facility] Urine color determinationOrd ered By: Rachel Joiner on 09-04-2024 Color (U) Yellow Yellow [facility] Urine cultureOrdered By: Hugo Wright on 09-04-2024 Bacteria identified Cx Nom (U) Staphylococcus epidermidis Abnormal [facility] Urine culture Staphylococcus epidermidis Abnormal [facility] Urine hpelt-5-ltayohmasuqpsr abinol (THC) measurementOrdered By: Rachel Joiner on 09-04-2024 Cannabinoids Screen Ql (U) Negative < 50 ng/mL [facility] Urine glucose detectionOrder ed By: Rachel Joiner on 09-04-2024 Glucose Ql (U) Normal mg/dl Normal [facility] Urine ketones detection by t est stripOrdered By: Rachel Joiner on 09-04-2024 Urine ketones detection by test strip Negative < 50 ng/mL [facility] Urine leukocyte esterase det ection by dipstickOrdered By: Rachel Joiner on 09-04-2024 Leukocyte esterase Test strip Ql (U) 100 /ul High Negative [facility] Urine methylenedioxymethamph etamine (MDMA) measurementOrdered By: Rachel Joiner on 09-04-2024 MDMA (Ecstasy) Screen Negative < 500 ng/mL [facility] Urine pHOrdered By: Rachel silva on 09-04-2024 pH (U) 6.0 [pH] 5.0 - 8.0 [facility] Urine phencyclidine (PCP) de tectionOrdered By: Rachel Joiner on 09-04-2024 Phencyclidine Ql (U) Negative < 25 ng/mL [facility] Urine sediment bacteria coun t by microscopy (number/high power field)Ordered By: Rachel Joiner on 09-04-2024 Bacteria LM.HPF (Urine sed) [#/Area] 0 /[HPF] None Seen [facility] Urine specific gravity measu rementOrdered By: Rachel Joiner on 09-04-2024 Specific gravity (U) [Rel density] 1.020 1.002-1.030 [facility] Urine total bilirubin detect ion by test stripOrdered By: Rachel Joiner on 09-04-2024 Urine total bilirubin detection by test strip 1 mg/dL High Normal [facility] Urine urobilinogen measureme ntOrdered By: Rachel Joiner on 09-04-2024 Urobilinogen Ql (U) 1 mg/dl High Normal [facility] Urobilinogen Ql (U)Ordered B y: Rachel Joiner on 09-04-2024 Urobilinogen (U) [Mass/Vol] 1 mg/dL High Normal [facility] Venous blood ammonia measure mentOrdered By: Rachel Joiner on 09-04-2024 Ammonia (P) [Moles/Vol] 26.0 umol/L -32 [facility] Venous blood ammonia measurement 26.0 umol/L [facility] White blood cell countOrdere d By: Rachel Joiner on 09-04-2024 Urine WBC 5-10 SEEN /hpf 0-5 [facility] Comment on above: Previous reported re sult: 0 SEEN /hpfEdited by: DANIEL on 09/04/24:2337 AMENDED REPORT 09/04/242336 WBC previously reported as: 0 SEEN /hpf White blood cell count 5-10 SEEN /hpf 0-5 [facility] White blood cell count 5-10 SEEN /hpf 0-5 [facility] pH (U)Ordered By: Rachel lambert on 09-04-2024 Urine pH 6.0 5.0 - 8.0 [facility] Absolute lymphocyte countOrd ered By: Bola Meraz on 09-02-2024 Lymphocytes Auto (Unsp spec) [#/Vol] 1.04 10*3/uL 0.83-4.51 [facility] Absolute neutrophil countOrd ered By: Bola Meraz on 09-02-2024 Neutrophils (Bld) [#/Vol] 14.0 10*3/uL High 2.0-7.7 [facility] Absolute neutrophil count 14.0 X10^3/uL High 2.0-7.7 [facility] Automated lymphocyte count a s percentage of total leukocytesOrdered By: Bola Meraz on 09-02-2024 Lymphocytes/100 WBC Auto (Unsp spec) 6.3 % Low 19-41 [facility] Basophil percentageOrdered B y: Bola Meraz on 09-02-2024 Basophils/100 WBC (Bld) 0.4 % 0-1 [facility] Basophil percentage 0.4 % 0-1 [facility] Blood urea nitrogen (BUN)/cr eatinine ratioOrdered By: Bola Meraz on 09-02-2024 Urea nitrogen/Creatinine [Mass ratio] 16.9 mg/mg 10-20 [facility] Blood urea nitrogen (BUN)/creatinine ratio 16.9 RATIO 10- [facility] Calcium [Mass/Vol]Ordered By : Bola Meraz on 09-02-2024 Serum or plasma calcium measurement (mass/volume) 8.9 mg/dL 8.5-10.1 [facility] Carbon dioxide measurementOr dered By: Bola Meraz on 09-02-2024 CO2 [Moles/Vol] 19.0 mmol/L Low 21.0-32.0 [facility] Carbon dioxide measurement 19.0 mmol/L Low 21.0-32.0 [facility] Chloride measurementOrdered By: Bola Meraz on 09-02-2024 Chloride [Moles/Vol] 107 mmol/L 98-107 [facility] Chloride measurement 107 mmol/L 98-107 [facility] Creatinine [Mass/Vol]Ordered By: Bola Meraz on 09-02-2024 Serum or plasma creatinine measurement (mass/volume) 2.54 mg/dL High 0.70-1.30 [facility] Eosinophil percentageOrdered By: Bola Meraz on 09-02-2024 Eosinophils/100 WBC (Bld) 1.3 % 0-5 [facility] Eosinophil percentage 1.3 % 0-5 [facility] Erythrocyte distribution wid th (RBC) [Ratio]Ordered By: Bola Meraz on 09-02-2024 Erythrocyte distribution width ratio 15.7 % High 11.6-14.6 [facility] Erythrocyte distribution width standard deviation 47.0 fl High 35.1-43.9 [facility] Erythrocyte distribution wid th ratioOrdered By: Bola Meraz on 09-02-2024 Erythrocyte distribution width (RBC) [Ratio] 15.7 % High 11.6-14.6 [facility] Erythrocyte distribution wid th standard deviationOrdered By: Bola Meraz on 09-02-2024 Erythrocyte distribution width (RBC) [Entitic vol] 47.0 fL High 35.1-43.9 [facility] Erythrocyte distribution width (RBC) [Ratio] 47.0 fl High 35.1-43.9 [facility] Estimated glomerular filtrat ion rate (GFR) AmericanOrdered By: Bola Meraz on 09-02-2024 Estimated GFR (MDRD) Amer 34 mL/min Low >60 [facility] Comment on above: GFR Calc Estimated glomerular filtration rate (GFR) 34 mL/min Low >60 [facility] Estimation of creatinine [place]ol[place] aranceOrdered By: Bola Meraz on 09-02-2024 Estimated Creatinine Clearance Calc 37.67 ml/min [facility] Estimation of creatinine clearance 37.67 ml/min [facility] Glomerular filtration rate ( GFR) estimationOrdered By: Bola Meraz on 09-02-2024 Estimated GFR (MDRD) Non-Af Amer 28 mL/min Low >60 [facility] Comment on above: Non- GFR Calc GFR/1.73 sq M.predicted among non-blacks MDRD (S/P/Bld) [Vol rate/Area] 28 mL/min/{1.73_m2} Low >60 [facility] Glomerular filtration rate (GFR) estimation 28 mL/min Low >60 [facility] Glucose measurementOrdered B y: Bola Meraz on 09-02-2024 Glucose [Mass/Vol] 187 mg/dL [address] Comment on above: Fasting Glucose resu lt greater than or equal to 126 mg/dL suggests DIABETES MELLITUS per A.D.A. criteria. Glucose measurement 187 mg/dL [address] [facility] deOrdered By: Rick Carlin on 09-02-2024 Bedside Glucose (Misc Panel) 168 mg/dL [address] Comment on above: MANAGEMENT OF PATIEN T CARE PER NURSING PROTOCOL Glucose [Mass/Vol] 168 mg/dL [address] Glucose measurement at bedside 168 mg/dL [place] [id number] [facility] Hematocrit Auto (Bld) [Volum e fraction]Ordered By: Bola Meraz on 09-02-2024 Hematocrit (Bld) [Volume fraction] 30.8 % Low 40-54 [facility] Automated blood hematocrit (percentage) 30.8 % Low 40-54 [facility] Hemoglobin measurementOrdere d By: Bola Meraz on 09-02-2024 Hemoglobin (Bld) [Mass/Vol] 10.7 g/dL Low 13.0-16.5 [facility] Hemoglobin measurement 10.7 g/dL Low 13.0-16.5 [facility] Immature granulocytes/100 WB C Auto (Bld)Ordered By: Bola Meraz on 09-02-2024 Immature granulocytes/100 WBC (Bld) 1.300 % High 0.0-0.9 [facility] Comment on above: IG% - Immature Granu locytes (promyelocytes, myelocytes and metamyelocytes) > 1% indicates that a LEFT SHIFT is Present. Automated immature granulocyte percentage 1.300 % High 0.0-0.9 [facility] Lymphocytes Auto (Unsp spec) [#/Vol]Ordered By: Bola Meraz on 09-02-2024 Lymphocytes (Bld) [#/Vol] 1.04 10*3/uL 0.83-4.51 [facility] Absolute lymphocyte count 1.04 X10^3/uL 0.83-4.51 [facility] Lymphocytes/100 WBC Auto (Un sp spec)Ordered By: Bola Meraz on 09-02-2024 Lymphocytes/100 WBC (Bld) 6.3 % Low - [facility] Automated lymphocyte count as percentage of total leukocytes 6.3 % Low -41 [facility] MCV (RBC) [Entitic vol]Order ed By: Bola Meraz on 09-02-2024 MCV (mean corpuscular volume) determination 83.7 fL 80-94 [facility] MCV (mean corpuscular volume ) determinationOrdered By: Bola Meraz on 09-02-2024 MCV (RBC) [Entitic vol] 83.7 fL 80-94 [facility] Mean corpuscular hemoglobin (MCH) determinationOrdered By: Bola Meraz on 09-02-2024 MCH (RBC) [Entitic mass] 29.1 pg 27.0-32.0 [facility] Mean corpuscular hemoglobin (MCH) determination 29.1 pg 27.0-32.0 [facility] Mean corpuscular hemoglobin concentration (MCHC) determinationOrdered By: Bola Meraz on 09-02-2024 MCHC (RBC) [Mass/Vol] 34.7 g/dL 32-36 [facility] Mean corpuscular hemoglobin concentration (MCHC) determination 34.7 g/dL 32-36 [facility] Mean platelet volume determi nationOrdered By: Bola Meraz on 09-02-2024 Platelet mean volume (Bld) [Entitic vol] 12.8 fL High 6.2-12.0 [facility] Mean platelet volume determination 12.8 fl High 6.2-12.0 [facility] Monocyte percentageOrdered B y: Bola Meraz on 09-02-2024 Monocytes/100 WBC (Bld) 6.0 % 0-10 [facility] Monocyte percentage 6.0 % 0-10 [facility] [place] Neutrophil percentageOrdered By: Bola Meraz on 09-02-2024 Neutrophils/100 WBC (Bld) 84.7 % High 47-70 [facility] Neutrophil percentage 84.7 % High 47-70 [facility] Nucleated red blood cell per centageOrdered By: Bola Meraz on 09-02-2024 Nucleated RBC/100 WBC (Bld) [Ratio] 0 % 0-5 [facility] Nucleated red blood cell percentage 0 % 0-5 [facility] Platelet countOrdered By: Oliver on 09-02-2024 Platelets (Bld) [#/Vol] 82 10*3/uL Low 150-450 [facility] Platelet count 82 K/mm3 Low 150-450 [facility] Potassium measurementOrdered By: Bola Meraz on 09-02-2024 Potassium [Moles/Vol] 4.0 mmol/L 3.5-5.1 [facility] Potassium measurement 4.0 mmol/L 3.5-5.1 [facility] RBC Auto (Bld) [#/Vol]Ordere d By: Bola Meraz on 09-02-2024 RBC (Bld) [#/Vol] 3.68 10*6/uL Low 4.6-6.2 [facility] [place] Automated blood erythrocyte count 3.68 M/mm3 Low 4.6-6.2 [facility] Serum anion gap measurementO rdered By: Bola Meraz on 09-02-2024 Anion gap [Moles/Vol] 8 mmol/L 5-15 [facility] Serum anion gap measurement 8 5-15 [facility] Serum or plasma calcium roosevelt urement (mass/volume)Ordered By: Bola Meraz on 09-02-2024 Calcium [Mass/Vol] 8.9 mg/dL 8.5-10.1 [facility] Serum or plasma creatinine m easurement (mass/volume)Ordered By: Bola Meraz on 09-02-2024 Creatinine [Mass/Vol] 2.54 mg/dL High 0.70-1.30 [facility] Comment on above: The validity of the calculated GFR & GFRAA in patients over 70 years has not been determined. Clinical correlation is essential. Serum or plasma urea nitroge n measurement (mass/volume)Ordered By: Bola Meraz on 09-02-2024 Urea nitrogen [Mass/Vol] 43 mg/dL High 7-18 [facility] Sodium levelOrdered By: Deanna Meraz on 09-02-2024 Sodium [Moles/Vol] 133 mmol/L Low 136-145 [facility] Sodium level 133 mmol/L Low 136-145 [facility] Urea nitrogen [Mass/Vol]Orde red By: Bola Meraz on 09-02-2024 Serum or plasma urea nitrogen measurement (mass/volume) 43 mg/dL High 7-18 [facility] White blood cell (WBC) count Ordered By: Bola Meraz on 09-02-2024 WBC (Bld) [#/Vol] 16.5 10*3/uL High 4.4-11.0 [facility] [place] White blood cell (WBC) count 16.5 K/mm3 High 4.4-11.0 [facility] ALP [Catalytic activity/Vol] Ordered By: Maria Guadalupe Shore on 08-30-2024 Serum or plasma alkaline phosphatase measurement 143 U/L High 45-117 [facility] ALT [Catalytic activity/Vol] Ordered By: Maria Guadalupe Shore on 08-30-2024 Serum or plasma alanine aminotransferase (ALT) measurement 19 U/L 16-61 [facility] Albumin [Mass/Vol]Ordered By : Maria Guadalupe Shore on 08-30-2024 Serum or plasma albumin measurement (mass/volume) 1.9 g/dL Low 3.2-5.0 [facility] Bilirubin directOrdered By: Maria Guadalupe Shore on 08-30-2024 Bilirubin.direct [Mass/Vol] 0.83 mg/dL High 0.00-0.30 [facility] Bilirubin, totalOrdered By: Maria Guadalupe Shore on 08-30-2024 Bilirubin [Mass/Vol] 1.30 mg/dL High 0.20-1.00 [facility] Comment on above: For patients on eltr ombopag therapy, use of Dimension [place] TBIL is not recommended. Bilirubin, total 1.30 mg/dL High 0.20-1.00 [facility] Bilirubin.direct [Mass/Vol]O rdered By: Maria Guadalupe Shore on 08-30-2024 Bilirubin direct 0.83 mg/dL High 0.00-0.30 [facility] Ferritin measurementOrdered By: Maria Guadalupe Shore on 08-30-2024 Ferritin [Mass/Vol] 85 ng/mL [facility] [place] Ferritin measurement 85 ng/mL [facility] HbA1c (Bld) [Mass fraction]O rdered By: Maria Guadalupe Shore on 08-30-2024 Hemoglobin A1c percentage 7.9 % High 3.8-5.6 [facility] Hemoglobin A1c percentageOrd ered By: Maria Guadalupe Shore on 08-30-2024 HbA1c (Bld) [Mass fraction] 7.9 % High 3.8-5.6 [facility] Comment on above: Normal < 5.7 % Predi abetic 5.7 - 6.4 % Diabetic >or= 6.5 % Please note range changes. Iron (Unsp spec) [Mass/Mass] Ordered By: Maria Guadalupe Shore on 08-30-2024 Iron [Mass/Vol] 62 ug/dL Low 65-175 [facility] Iron measurement (mass/mass) 62 ug/dL Low 65-175 [facility] Iron measurement (mass/mass) Ordered By: Maria Guadalupe Shore on 08-30-2024 Iron (Unsp spec) [Mass/Mass] 62 ug/dL Low 65-175 [facility] Iron saturation [Mass fracti on]Ordered By: Maria Guadalupe Shore on 08-30-2024 Iron Saturation 33.9 % 15.0-55.0 [facility] Serum or plasma iron saturation measurement (mass fraction) 33.9 % 15.0-55.0 [facility] Laboratory - Chemistry and C hemistry - challengeOrdered By: Maria Guadalupe Shore on 08-30-2024 AST [Catalytic activity/Vol] 22 U/L [facility] No Panel InformationOrdered By: Maria Guadalupe Shore on 08-30-2024 22 U/L [facility] Serum globulin measurementOr dered By: Maria Guadalupe Shore on 08-30-2024 Globulin (S) [Mass/Vol] 3.4 g/dL 2.2-4.2 [facility] Serum globulin measurement 3.4 g/dL 2.2-4.2 [facility] Serum or plasma alanine thomas otransferase (ALT) measurementOrdered By: Maria Guadalupe Shore on 08-30-2024 ALT [Catalytic activity/Vol] 19 U/L 16-61 [facility] Serum or plasma albumin roosevelt urement (mass/volume)Ordered By: Maria Guadalupe Shore on 08-30-2024 Albumin [Mass/Vol] 1.9 g/dL Low 3.2-5.0 [facility] Serum or plasma alkaline kendrick sphatase measurementOrdered By: Maria Guadalupe Shore on 08-30-2024 ALP [Catalytic activity/Vol] 143 U/L High 45-117 [facility] Serum or plasma iron saturat ion measurement (mass fraction)Ordered By: Maria Guadalupe Shore on 08-30-2024 Iron saturation [Mass fraction] 33.9 % 15.0-55.0 [facility] TIBCOrdered By: Maria Guadalupe Shore on 08-30-2024 Total Iron Binding Capacity 183 ug/dL Low 250-450 [facility] TIBC 183 ug/dL Low 250-450 [facility] Total proteinOrdered By: Aut davi Shore on 08-30-2024 Protein [Mass/Vol] 5.3 g/dL Low 6.4-8.2 [facility] Total protein 5.3 g/dL Low 6.4-8.2 [facility] Venous blood ammonia measure mentOrdered By: Maria Guadalupe Shore on 08-30-2024 Ammonia (P) [Moles/Vol] 64.0 umol/L High 11-32 [facility] Venous blood ammonia measurement 64.0 umol/L High 1132 [facility] Activated partial thrombopla stin time (aPTT) in platelet poor plasma by coagulation aOrdered By: Luis Carlos Anderson on 08-29-2024 aPTT Coag (PPP) [Time] 40.9 s High 24.1-36.2 [facility] Albumin to globulin ratioOrd ered By: Luis Carlos Anderson on 08-29-2024 Albumin/Globulin [Mass ratio] 0.4 {ratio} Low 0.9-2.4 [facility] Albumin to globulin ratio 0.4 RATIO Low 0.9-2.4 [facility] Bacteria LM.HPF (Urine sed) [#/Area]Ordered By: Luis Carlos Anderson on 08-29-2024 Urine Bacteria RARE /hpf None Seen [facility] Urine sediment bacteria count by microscopy (number/high power field) RARE /hpf None Seen [facility] Bilirubin Test strip Ql (U)O rdered By: Luis Carlos Anderson on 08-29-2024 Bilirubin Ql (U) 1 mg/dL High Negative [facility] Comment on above: COLOR OF URINE MAY A FFECT DIPSTICK RESULTS. Clarity (U)Ordered By: Juan Alberto Anderson on 08-29-2024 Urine clarity Clear Clear [facility] Color (U)Ordered By: Luis Carlos Anderson on 08-29-2024 Urine color determination Yellow Yellow [facility] Creatinine (U) [Mass/Vol]Ord ered By: Maria Guadalupe White on 08-29-2024 Urine creatinine measurement (mass/volume) 173.00 mg/dL NO RANGE EST. [facility] Epithelial cells.squamous LM Ql (Urine sed)Ordered By: Luis Carlos Anderson on 08-29-2024 Epithelial cells.squamous LM.HPF (Urine sed) [#/Area] 0 /[HPF] 0-5 [facility] Squamous epithelial cells detection in urine sediment by light microscopy 0 SEEN /hpf 0-5 [facility] Glucose Ql (U)Ordered By: Yaya Anderson on 08-29-2024 Glucose (U) [Mass/Vol] 50 mg/dL High Normal [facility] Urine glucose detection 50 mg/dl High Normal [facility] International normalized rat io (INR) calculationOrdered By: Luis Carlos Anderson on 08-29-2024 INR Coag (Bld) [Relative time] 1.7 {INR} [facility] International normalized ratio (INR) calculation 1.7 [facility] Ketones Test strip Ql (U)Ord ered By: Luis Carlos Anderson on 08-29-2024 Ketones Ql (U) Negative Negative [facility] Leukocyte esterase Test stri p Ql (U)Ordered By: Luis Carlos Anderson on 08-29-2024 Urine leukocyte esterase detection by dipstick 500 /ul High Negative [facility] Lipase measurementOrdered By : Luis Carlos Anderson on 08-29-2024 Lipase [Catalytic activity/Vol] 26 U/L 13-75 [facility] Comment on above: Please note:LIPASE r evised reference range effective 22. New Lipase methodology. Expected to produce lower values than the previous assay method. NEW Reference Range: 13 - 75 U/L Lipase measurement 26 U/L 13-75 [facility] Magnesium measurementOrdered By: Maria Guadalupe Shore on 08-29-2024 Magnesium [Mass/Vol] 2.7 mg/dL High 1.6-2.6 [facility] Magnesium measurement 2.7 mg/dL High 1.6-2.6 [facility] Microscopic analysis of urin e for red blood cells (RBC)Ordered By: Luis Carlos Anderson on 08-29-2024 Urine RBC 5-10 SEEN /hpf 0-5 [facility] Microscopic analysis of urine for red blood cells (RBC) 5-10 SEEN /hpf 0-5 [facility] Mucus LM Ql (Urine sed)Order ed By: Luis Carlos Anderson on 08-29-2024 Mucus Ql (Urine sed) 1+ /hpf [facility] Mucus detection in urine sediment by light microscopy 1+ /hpf [facility] Nitrite Test strip Ql (U)Ord ered By: Luis Carlos Anderson on 08-29-2024 Nitrite Ql (U) Negative Negative [facility] Phosphorus measurementOrdere d By: Maria Guadalupe Shore on 08-29-2024 Phosphorus Level 4.9 mg/dL 2.5-4.9 [facility] Phosphorus measurement 4.9 mg/dL 2.5-4.9 [facility] Protein Test strip Ql (U)Ord ered By: Luis Carlos Anderson on 08-29-2024 Protein Ql (U) 30 mg/dl High Negative [facility] Urine protein assay by test strip, semi-quantitative 30 mg/dl High Negative [facility] Prothrombin timeOrdered By: Luis Carlos Anderson on 08-29-2024 PT Coag (PPP) [Time] 20.0 s High 11.7-14.9 [facility] Prothrombin time 20.0 SECONDS High 11.7-14.9 [facility] Sodium urOrdered By: Maria Guadalupe Shore on 08-29-2024 Sodium (U) [Moles/Vol] 30 mmol/L Not Establ. [facility] Sodium [Moles/Vol] 30 mmol[facility]L [facility] mmol/L Not Establ. [facility] Specific gravity (U) [Rel de nsity]Ordered By: Luis Carlos Anderson on 08-29-2024 Urine specific gravity measurement 1.015 1.002-1.030 [facility] Squamous epithelial cells de tection in urine sediment by light microscopyOrdered By: Luis Carlos Anderson on 08-29-2024 Epithelial cells.squamous LM Ql (Urine sed) 0 SEEN /hpf 0-5 [facility] Urine blood detectionOrdered By: Luis Carlos Anderson on 08-29-2024 Urine Occult Blood 150 /ul High Negative oste r [facility] Urine blood detection 150 /ul High Negative [place] [facility] Urine clarityOrdered By: Joann Anderson on 08-29-2024 Clarity (U) Clear Clear [facility] Urine color determinationOrd ered By: Luis Carlos Anderson on 08-29-2024 Color (U) Yellow Yellow [facility] Urine creatinine measurement (mass/volume)Ordered By: Maria Guadalupe White on 08-29-2024 Creatinine (U) [Mass/Vol] 173.00 mg/dL NO RANGE EST. [facility] Urine cultureOrdered By: Joann Anderson on 08-29-2024 Bacteria identified Cx Nom (U) Culture exhibits no growth. [facility] Urine culture Culture exhibits no growth. [facility] Urine glucose detectionOrder ed By: Luis Carlos Anderson on 08-29-2024 Glucose Ql (U) 50 mg/dl High Normal [facility] Urine ketones detection by t est stripOrdered By: Luis Carlos Anderson on 08-29-2024 Urine ketones detection by test strip Negative Negative [facility] Urine leukocyte esterase det ection by dipstickOrdered By: Luis Carlos Anderson on 08-29-2024 Leukocyte esterase Test strip Ql (U) 500 /ul High Negative [facility] Urine pHOrdered By: Luis Carlos hammond on 08-29-2024 pH (U) 6.0 [pH] 5.0 - 8.0 [facility] Urine sediment bacteria coun t by microscopy (number/high power field)Ordered By: Luis Carlos Anderson on 08-29-2024 Bacteria LM.HPF (Urine sed) [#/Area] RARE /hpf None Seen [facility] Urine specific gravity measu rementOrdered By: Luis Carlos Anderson on 08-29-2024 Specific gravity (U) [Rel density] 1.015 1.002-1.030 [facility] Urine total bilirubin detect ion by test stripOrdered By: Luis Carlos Anderson on 08-29-2024 Urine total bilirubin detection by test strip 1 mg/dL High Normal [facility] Urine urobilinogen measureme ntOrdered By: Luis Carlos Anderson on 08-29-2024 Urobilinogen Ql (U) 1 mg/dl High Normal [facility] Urobilinogen Ql (U)Ordered B y: Luis Carlos Anderson on 08-29-2024 Urobilinogen (U) [Mass/Vol] 1 mg/dL High Normal [facility] White blood cell countOrdere d By: Luis Carlos Anderson on 08-29-2024 Urine WBC 10-25 SEEN /hpf 0-5 [facility] White blood cell count 10-25 SEEN /hpf 0-5 [facility] White blood cell count 10-25 SEEN /hpf 0-5 [facility] aPTT Coag (PPP) [Time]Ordere d By: Luis Carlos Anderson on 08-29-2024 aPTT Coag (Bld) [Time] 40.9 s High 24.1-36.2 [facility] Activated partial thromboplastin time (aPTT) in platelet poor plasma by coagulation a 40.9 Seconds High 24.1-36.2 [facility] pH (U)Ordered By: Ashu on 08-29-2024 Urine pH 6.0 5.0 - 8.0 [facility] Vital Signs Date Time Vital Sign Value Performing Clinician Facility 03-11-2025 22:11040 Body temperature 98.1 [degF] No Primary Care Physician [facility] 03-11-2025 [id number]:[id number] Diastolic blood pressure 65 mm[Hg] No Primary Care Physician [facility] 03-11-2025 22:11-0400 Heart rate 70 /min No Primary Care Physician [facility] 03-11-2025 [id number]:[id number] Respiratory rate 16 /min No Primary Care Physician [facility] 03-11-2025 22:[id number] SaO2% (BldA) [Mass fraction] 100 % No Primary Care Physician [facility] 03-11-2025 22:11-0400 Systolic blood pressure 98 mm[Hg] No Primary Care Physician [facility] 03-11-2025 17:10-0400 Body height 175.26 cm No Primary Care Physician [facility] 03-11-2025 17:10-0400 Body mass index (BMI) [Ratio] 29.8 kg/m2 No Primary Care Physician [facility] 03-11-2025 17:10-0400 Body weight 91.62 kg No Primary Care Physician [facility] 03-10-2025 14:16-0400 Body mass index (BMI) [Ratio] 29 kg/m2 No Primary Care Physician [facility] 03-10-2025 14:16-0400 Body weight 89.35 kg No Primary Care Physician [facility] 03-10-2025 14:16-0400 Diastolic blood pressure 59 mm[Hg] No Primary Care Physician [facility] 03-10-2025 14:16-0400 Heart rate 77 /min No Primary Care Physician [facility] 03-10-2025 14:16-0400 Respiratory rate 17 /min No Primary Care Physician [facility] 03-10-2025 14:16-0400 SaO2% (BldA) [Mass fraction] 99 % No Primary Care Physician [facility] 03-10-2025 14:16-0400 Systolic blood pressure 95 mm[Hg] No Primary Care Physician [facility] 03-04-2025 12:36-0400 Diastolic blood pressure 64 mm[Hg] No Primary Care Physician [facility] 03-04-2025 12:36-0400 Heart rate 68 /min No Primary Care Physician [facility] 03-04-2025 12:36-0400 Respiratory rate 16 /min No Primary Care Physician [facility] 03-04-2025 12:36-0400 Systolic blood pressure 103 mm[Hg] No Primary Care Physician [facility] 02-27-2025 14:46-0400 Body temperature 98.4 [degF] No Primary Care Physician [facility] 02-27-2025 14:46-0400 Diastolic blood pressure 67 mm[Hg] No Primary Care Physician [facility] 02-27-2025 14:46-0400 Heart rate 87 /min No Primary Care Physician [facility] 02-27-2025 14:46-0400 Respiratory rate 16 /min No Primary Care Physician [facility] 02-27-2025 14:46-0400 SaO2% (BldA) [Mass fraction] 96 % No Primary Care Physician [facility] 02-27-2025 14:46-0400 Systolic blood pressure 119 mm[Hg] No Primary Care Physician [facility] 02-26-2025 15:23-0400 Body weight 90.26 kg No Primary Care Physician [facility] 02-25-2025 11:36-0400 Body mass index (BMI) [Ratio] 31.9 kg/m2 No Primary Care Physician [facility] 02-17-2025 17:05-0400 Body temperature 98.2 [degF] No Primary Care Physician [facility] 02-17-2025 17:05-0400 Diastolic blood pressure 71 mm[Hg] No Primary Care Physician [facility] 02-17-2025 17:05-0400 Heart rate 74 /min No Primary Care Physician [facility] 02-17-2025 17:05-0400 Respiratory rate 16 /min No Primary Care Physician [facility] 02-17-2025 17:05-0400 SaO2% (BldA) [Mass fraction] 98 % No Primary Care Physician [facility] 02-17-2025 17:05-0400 Systolic blood pressure 123 mm[Hg] No Primary Care Physician [facility] 02-16-2025 19:56-0400 Body height 175.26 cm No Primary Care Physician [facility] 02-16-2025 19:56-0400 Body mass index (BMI) [Ratio] 31.1 kg/m2 No Primary Care Physician [facility] 02-16-2025 19:56-0400 Body weight 95.6 kg No Primary Care Physician [facility] 02-16-2025 19:34-0400 Body temperature 97.8 [degF] No Primary Care Physician [facility] 02-16-2025 19:34-0400 Diastolic blood pressure 61 mm[Hg] No Primary Care Physician [facility] 02-16-2025 19:34-0400 Heart rate 76 /min No Primary Care Physician [facility] 02-16-2025 19:34-0400 Respiratory rate 18 /min No Primary Care Physician [facility] 02-16-2025 19:34-0400 SaO2% (BldA) [Mass fraction] 96 % No Primary Care Physician [facility] 02-16-2025 19:34-0400 Systolic blood pressure 102 mm[Hg] No Primary Care Physician [facility] 02-16-2025 17:20-0400 Body height 175.26 cm No Primary Care Physician [facility] 02-13-2025 21:17-0400 Body temperature 98.8 [degF] No Primary Care Physician [facility] 02-13-2025 21:17-0400 Diastolic blood pressure 75 mm[Hg] No Primary Care Physician [facility] 02-13-2025 21:17-0400 Heart rate 59 /min No Primary Care Physician [facility] 02-13-2025 21:17-0400 Respiratory rate 16 /min No Primary Care Physician [facility] 02-13-2025 21:17-0400 SaO2% (BldA) [Mass fraction] 100 % No Primary Care Physician [facility] 02-13-2025 21:17-0400 Systolic blood pressure 97 mm[Hg] No Primary Care Physician [facility] 02-13-2025 16:30-0400 Body height 175.26 cm No Primary Care Physician [facility] 02-13-2025 16:30-0400 Body mass index (BMI) [Ratio] 33 kg/m2 No Primary Care Physician [facility] 02-13-2025 16:30-0400 Body weight 101.5 kg No Primary Care Physician [facility] 02-11-2025 12:35-0400 Diastolic blood pressure 55 mm[Hg] No Primary Care Physician [facility] 02-11-2025 12:35-0400 Heart rate 63 /min No Primary Care Physician [facility] 02-11-2025 12:35-0400 Respiratory rate 18 /min No Primary Care Physician [facility] 02-11-2025 12:35-0400 Systolic blood pressure 85 mm[Hg] No Primary Care Physician [facility] 02-11-2025 12:33-0400 Body temperature 97.3 [degF] No Primary Care Physician [facility] 02-08-2025 01:26-0400 Body temperature 97.6 [degF] No Primary Care Physician [facility] 02-08-2025 01:26-0400 Diastolic blood pressure 63 mm[Hg] No Primary Care Physician [facility] 02-08-2025 01:26-0400 Heart rate 62 /min No Primary Care Physician [facility] 02-08-2025 01:26-0400 Respiratory rate 18 /min No Primary Care Physician [facility] 02-08-2025 01:26-0400 SaO2% (BldA) [Mass fraction] 100 % No Primary Care Physician [facility] 02-08-2025 01:26-0400 Systolic blood pressure 97 mm[Hg] No Primary Care Physician [facility] 02-07-2025 22:20-0400 Body mass index (BMI) [Ratio] 34.8 kg/m2 No Primary Care Physician [facility] 02-07-2025 22:20-0400 Body weight 107.1 kg No Primary Care Physician [facility] 02-07-2025 19:24-0400 Body height 175.26 cm No Primary Care Physician [facility] 01-31-2025 18:35-0400 Body temperature 98.1 [degF] No Primary Care Physician [facility] 01-31-2025 18:35-0400 Diastolic blood pressure 86 mm[Hg] No Primary Care Physician [facility] 01-31-2025 18:35-0400 Heart rate 100 /min No Primary Care Physician [facility] 01-31-2025 18:35-0400 Respiratory rate 16 /min No Primary Care Physician [facility] 01-31-2025 18:35-0400 SaO2% (BldA) [Mass fraction] 100 % No Primary Care Physician [facility] 01-31-2025 18:35-0400 Systolic blood pressure 127 mm[Hg] No Primary Care Physician [facility] 01-31-2025 09:49-0400 Body height 182.88 cm No Primary Care Physician [facility] 01-31-2025 09:49-0400 Body weight 110.3 kg No Primary Care Physician [facility] 01-28-2025 09:46-0400 Body mass index (BMI) [Ratio] 33 kg/m2 No Primary Care Physician [facility] 01-28-2025 09:00-0400 Body temperature 98 [degF] No Primary Care Physician [facility] 01-28-2025 09:00-0400 Diastolic blood pressure 67 mm[Hg] No Primary Care Physician [facility] 01-28-2025 09:00-0400 Heart rate 106 /min No Primary Care Physician [facility] 01-28-2025 09:00-0400 Respiratory rate 15 /min No Primary Care Physician [facility] 01-28-2025 09:00-0400 SaO2% (BldA) [Mass fraction] 100 % No Primary Care Physician [facility] 01-28-2025 09:00-0400 Systolic blood pressure 125 mm[Hg] No Primary Care Physician [facility] 01-28-2025 02:56-0400 Body height 187.96 cm No Primary Care Physician [facility] 01-28-2025 02:56-0400 Body mass index (BMI) [Ratio] 31.7 kg/m2 No Primary Care Physician [facility] 01-28-2025 02:56-0400 Body weight 112.2 kg No Primary Care Physician [facility] 01-21-2025 13:00-0400 Body temperature 97.7 [degF] No Primary Care Physician [facility] 01-21-2025 13:00-0400 Diastolic blood pressure 60 mm[Hg] No Primary Care Physician [facility] 01-21-2025 13:00-0400 Heart rate 91 /min No Primary Care Physician [facility] 01-21-2025 13:00-0400 Respiratory rate 18 /min No Primary Care Physician [facility] 01-21-2025 13:00-0400 SaO2% (BldA) [Mass fraction] 97 % No Primary Care Physician [facility] 01-21-2025 13:00-0400 Systolic blood pressure 100 mm[Hg] No Primary Care Physician [facility] 01-21-2025 05:13-0400 Body mass index (BMI) [Ratio] 35.8 kg/m2 No Primary Care Physician [facility] 01-21-2025 05:13-0400 Body weight 110.1 kg No Primary Care Physician [facility] 01-17-2025 14:51-0400 Body height 175.26 cm No Primary Care Physician [facility] 01-09-2025 14:01-0400 Heart rate 69 /min No Primary Care Physician [facility] 01-09-2025 14:01-0400 Respiratory rate 16 /min No Primary Care Physician [facility] 01-09-2025 14:01-0400 SaO2% (BldA) [Mass fraction] 100 % No Primary Care Physician [facility] 01-09-2025 14:00-0400 Diastolic blood pressure 59 mm[Hg] No Primary Care Physician [facility] 01-09-2025 14:00-0400 Systolic blood pressure 107 mm[Hg] No Primary Care Physician [facility] 01-09-2025 13:04-0400 Body temperature 98 [degF] No Primary Care Physician [facility] 01-09-2025 10:10-0400 Body height 175.26 cm No Primary Care Physician [facility] 01-09-2025 10:10-0400 Body mass index (BMI) [Ratio] 29.5 kg/m2 No Primary Care Physician [facility] 01-09-2025 10:10-0400 Body weight 90.6 kg No Primary Care Physician [facility] 01-05-2025 16:00-0400 Body temperature 98.1 [degF] No Primary Care Physician [facility] 01-05-2025 16:00-0400 Diastolic blood pressure 60 mm[Hg] No Primary Care Physician [facility] 01-05-2025 16:00-0400 Heart rate 73 /min No Primary Care Physician [facility] 01-05-2025 16:00-0400 Respiratory rate 16 /min No Primary Care Physician [facility] 01-05-2025 16:00-0400 SaO2% (BldA) [Mass fraction] 94 % No Primary Care Physician [facility] 01-05-2025 16:00-0400 Systolic blood pressure 103 mm[Hg] No Primary Care Physician [facility] 01-05-2025 04:44-0400 Body mass index (BMI) [Ratio] 29.9 kg/m2 No Primary Care Physician [facility] 01-05-2025 04:44-0400 Body weight 92.2 kg No Primary Care Physician [facility] 01-02-2025 10:11-0400 Body height 175.26 cm No Primary Care Physician [facility] 01-02-2025 06:34-0400 Body temperature 97.8 [degF] No Primary Care Physician [facility] 01-02-2025 06:34-0400 Diastolic blood pressure 73 mm[Hg] No Primary Care Physician [facility] 01-02-2025 06:34-0400 Heart rate 68 /min No Primary Care Physician [facility] 01-02-2025 06:34-0400 Respiratory rate 20 /min No Primary Care Physician [facility] 01-02-2025 06:34-0400 SaO2% (BldA) [Mass fraction] 100 % No Primary Care Physician [facility] 01-02-2025 06:34-0400 Systolic blood pressure 105 mm[Hg] No Primary Care Physician [facility] 01-02-2025 02:59-0400 Body height 175.26 cm No Primary Care Physician [facility] 01-02-2025 02:59-0400 Body mass index (BMI) [Ratio] 27.5 kg/m2 No Primary Care Physician [facility] 01-02-2025 02:59-0400 Body weight 84.5 kg No Primary Care Physician [facility] 12-30-2024 05:24-0400 Body temperature 97.9 [degF] No Primary Care Physician [facility] 12-30-2024 05:24-0400 Diastolic blood pressure 52 mm[Hg] No Primary Care Physician [facility] 12-30-2024 05:24-0400 Heart rate 71 /min No Primary Care Physician [facility] 12-30-2024 05:24-0400 Respiratory rate 18 /min No Primary Care Physician [facility] 12-30-2024 05:24-0400 SaO2% (BldA) [Mass fraction] 93 % No Primary Care Physician [facility] 12-30-2024 05:24-0400 Systolic blood pressure 93 mm[Hg] No Primary Care Physician [facility] 12-30-2024 01:07-0400 Body height 175.26 cm No Primary Care Physician [facility] 12-30-2024 01:07-0400 Body mass index (BMI) [Ratio] 28.4 kg/m2 No Primary Care Physician [facility] 12-30-2024 01:07-0400 Body weight 87.3 kg No Primary Care Physician [facility] 12-26-2024 14:27-0400 Body temperature 97 [degF] No Primary Care Physician [facility] 12-26-2024 14:27-0400 Diastolic blood pressure 58 mm[Hg] No Primary Care Physician [facility] 12-26-2024 14:27-0400 Heart rate 64 /min No Primary Care Physician [facility] 12-26-2024 14:27-0400 Respiratory rate 16 /min No Primary Care Physician [facility] 12-26-2024 14:27-0400 SaO2% (BldA) [Mass fraction] 97 % No Primary Care Physician [facility] 12-26-2024 14:27-0400 Systolic blood pressure 90 mm[Hg] No Primary Care Physician [facility] 12-26-2024 10:00-0400 Body height 175.26 cm No Primary Care Physician [facility] 12-26-2024 10:00-0400 Body mass index (BMI) [Ratio] 29.7 kg/m2 No Primary Care Physician [facility] 12-26-2024 10:00-0400 Body weight 91.4 kg No Primary Care Physician [facility] 12-02-2024 12:13-0400 Body temperature 98.7 [degF] No Primary Care Physician [facility] 12-02-2024 12:13-0400 Diastolic blood pressure 68 mm[Hg] No Primary Care Physician [facility] 12-02-2024 12:13-0400 Heart rate 86 /min No Primary Care Physician [facility] 12-02-2024 12:13-0400 Respiratory rate 18 /min No Primary Care Physician [facility] 12-02-2024 12:13-0400 SaO2% (BldA) [Mass fraction] 97 % No Primary Care Physician [facility] 12-02-2024 12:13-0400 Systolic blood pressure 117 mm[Hg] No Primary Care Physician [facility] 12-02-2024 02:57-0400 Body mass index (BMI) [Ratio] 33 kg/m2 No Primary Care Physician [facility] 12-02-2024 02:57-0400 Body weight 101.6 kg No Primary Care Physician [facility] 11-29-2024 09:53-0400 Body height 175.26 cm No Primary Care Physician [facility] 11-25-2024 18:31-0400 Body temperature 98.2 [degF] No Primary Care Physician [facility] 11-25-2024 18:31-0400 Diastolic blood pressure 80 mm[Hg] No Primary Care Physician [facility] 11-25-2024 18:31-0400 Heart rate 97 /min No Primary Care Physician [facility] 11-25-2024 18:31-0400 Respiratory rate 18 /min No Primary Care Physician [facility] 11-25-2024 18:31-0400 SaO2% (BldA) [Mass fraction] 98 % No Primary Care Physician [facility] 11-25-2024 18:31-0400 Systolic blood pressure 122 mm[Hg] No Primary Care Physician [facility] 11-24-2024 15:17-0400 Body weight 102.7 kg No Primary Care Physician [facility] 11-21-2024 05:32-0400 Body mass index (BMI) [Ratio] 33.4 kg/m2 No Primary Care Physician [facility] 11-21-2024 05:00-0400 Heart rate 77 /min No Primary Care Physician [facility] 11-21-2024 04:51-0400 Body temperature 98.2 [degF] No Primary Care Physician [facility] 11-21-2024 04:51-0400 Diastolic blood pressure 57 mm[Hg] No Primary Care Physician [facility] 11-21-2024 04:51-0400 Respiratory rate 16 /min No Primary Care Physician [facility] 11-21-2024 04:51-0400 SaO2% (BldA) [Mass fraction] 97 % No Primary Care Physician [facility] 11-21-2024 04:51-0400 Systolic blood pressure 127 mm[Hg] No Primary Care Physician [facility] 11-21-2024 01:32-0400 Body height 175.26 cm No Primary Care Physician [facility] 11-21-2024 01:32-0400 Body mass index (BMI) [Ratio] 34.3 kg/m2 No Primary Care Physician [facility] 11-21-2024 01:32-0400 Body weight 105.4 kg No Primary Care Physician [facility] 11-12-2024 18:03-0400 SaO2% (BldA) [Mass fraction] 99 % KATHIE POWERS [facility] Comment on above: Order Comment: Specimen Type: ARTERIAL B LOOD SPECIMENOrdering Facility: [facility] Address: [address] [place] [address] Performed By: #### A LLBG ####[facility] LABCLIA [id number] [place] [id number] [place] 11-10-2024 23:40-0400 Body temperature 97.8 [degF] No Primary Care Physician [facility] 11-10-2024 23:40-0400 Diastolic blood pressure 70 mm[Hg] No Primary Care Physician [facility] 11-10-2024 23:40-0400 Heart rate 110 /min No Primary Care Physician [facility] 11-10-2024 23:40-0400 Respiratory rate 18 /min No Primary Care Physician [facility] 11-10-2024 23:40-0400 SaO2% (BldA) [Mass fraction] 97 % No Primary Care Physician [facility] 11-10-2024 23:40-0400 Systolic blood pressure 116 mm[Hg] No Primary Care Physician [facility] 11-10-2024 04:54-0400 Body mass index (BMI) [Ratio] 36.7 kg/m2 No Primary Care Physician [facility] 11-10-2024 04:54-0400 Body weight 112.8 kg No Primary Care Physician [facility] 11-09-2024 14:30-0400 Body height 175.26 cm No Primary Care Physician [facility] 10-29-2024 01:23-0400 Body temperature 97.4 [degF] No Primary Care Physician [facility] 10-29-2024 01:23-0400 Diastolic blood pressure 54 mm[Hg] No Primary Care Physician [facility] 10-29-2024 01:23-0400 Heart rate 77 /min No Primary Care Physician [facility] 10-29-2024 01:23-0400 Respiratory rate 14 /min No Primary Care Physician [facility] 10-29-2024 01:23-0400 SaO2% (BldA) [Mass fraction] 97 % No Primary Care Physician [facility] 10-29-2024 01:23-0400 Systolic blood pressure 97 mm[Hg] No Primary Care Physician [facility] 10-28-2024 21:43-0400 Body mass index (BMI) [Ratio] 30.4 kg/m2 No Primary Care Physician [facility] 10-28-2024 21:43-0400 Body weight 93.1 kg No Primary Care Physician [facility] 10-28-2024 17:13-0400 Body height 175.01 cm No Primary Care Physician [facility] 10-04-2024 21:45-0500 Diastolic blood pressure 89 mm[Hg] Maurice wen MD Work Phone: [phone] [place] [address] 10-04-2024 21:45-0500 Heart rate 94 /min Maurice Rincon MD Work Phone: [phone] [address] 10-04-2024 21:45-0500 Respiratory rate 18 /min Maurice Rincon MD Work Phone: [facility] 10-04-2024 21:45-0500 SaO2% (BldA) [Mass fraction] 100 % Maurice Rincon MD Work Phone: [facility] 10-04-2024 21:45-0500 Systolic blood pressure 152 mm[Hg] Maurice parada MD Work Phone: [facility] 10-04-2024 12:03-0500 Body temperature 97.59 [degF] Maurice Rincon MD Work Phone: [facility] 10-04-2024 12:03-0500 Body weight 117.48 kg Maurice Rincon MD Work Phone: [facility] 09-29-2024 10:21-0500 Body temperature 97.3 [degF] No Primary Care Physician [facility] 09-29-2024 10:21-0500 Diastolic blood pressure 74 mm[Hg] No Primary Care Physician [facility] 09-29-2024 10:21-0500 Heart rate 81 /min No Primary Care Physician [facility] 09-29-2024 10:21-0500 Respiratory rate 18 /min No Primary Care Physician [facility] 09-29-2024 10:21-0500 Systolic blood pressure 138 mm[Hg] No Primary Care Physician [facility] 09-15-2024 03:49-0500 Body temperature 97.8 [degF] No Primary Care Physician [facility] 09-15-2024 03:49-0500 Diastolic blood pressure 70 mm[Hg] No Primary Care Physician [facility] 09-15-2024 03:49-0500 Heart rate 80 /min No Primary Care Physician [facility] 09-15-2024 03:49-0500 Respiratory rate 17 /min No Primary Care Physician [facility] 09-15-2024 03:49-0500 SaO2% (BldA) [Mass fraction] 96 % No Primary Care Physician [facility] 09-15-2024 03:49-0500 Systolic blood pressure 142 mm[Hg] No Primary Care Physician [facility] 09-14-2024 04:07-0500 Body mass index (BMI) [Ratio] 36.7 kg/m2 No Primary Care Physician [facility] 09-14-2024 04:07-0500 Body weight 112.8 kg No Primary Care Physician [facility] 09-10-2024 14:03-0500 Body height 175.26 cm No Primary Care Physician [facility] 09-07-2024 01:24-0500 Inhaled oxygen concentration 21 % No Primary Care Physician [facility] 09-06-2024 05:00-0500 Inhaled oxygen flow rate 8 L/min No Primary Care Physician [facility] 09-02-2024 15:36-0500 Body weight 104 kg No Primary Care Physician [facility] 09-02-2024 14:54-0500 Body temperature 98.1 [degF] No Primary Care Physician [facility] 09-02-2024 14:54-0500 Diastolic blood pressure 62 mm[Hg] No Primary Care Physician [facility] 09-02-2024 14:54-0500 Heart rate 60 /min No Primary Care Physician [facility] 09-02-2024 14:54-0500 Respiratory rate 18 /min No Primary Care Physician [facility] 09-02-2024 14:54-0500 SaO2% (BldA) [Mass fraction] 99 % No Primary Care Physician [facility] 09-02-2024 14:54-0500 Systolic blood pressure 118 mm[Hg] No Primary Care Physician [facility] 09-02-2024 03:57-0500 Body mass index (BMI) [Ratio] 33.8 kg/m2 No Primary Care Physician [facility] 08-21-2024 16:33-0500 Body temperature 98.5 [degF] No Primary Care Physician [facility] 08-21-2024 16:33-0500 Diastolic blood pressure 78 mm[Hg] No Primary Care Physician [facility] 08-21-2024 16:33-0500 Heart rate 61 /min No Primary Care Physician [facility] 08-21-2024 16:33-0500 Respiratory rate 12 /min No Primary Care Physician [facility] 08-21-2024 16:33-0500 SaO2% (BldA) [Mass fraction] 97 % No Primary Care Physician [facility] 08-21-2024 16:33-0500 Systolic blood pressure 114 mm[Hg] No Primary Care Physician [facility] 08-21-2024 13:52-0500 Body mass index (BMI) [Ratio] 33 kg/m2 No Primary Care Physician [facility] 08-21-2024 13:52-0500 Body weight 101.5 kg No Primary Care Physician [facility] Encounters Encounter Date Encounter Type Care Provider Facility Start: 04-03-2025 End: 04-03-2025 Emergency department patient visit [facility] Facility:[facility] Start: 03-30-2025 End: 03-30-2025 ambulatory Roby Balderas Facility:[facility] Start: 03-25-[facility] Start: 03-16-2025 ambulatory Jerald Sherwood [facility] Start: 03-11-2025 End: 03-11-2025 No Primary Care Physician -Emergency Department Work Phone: Start: 03-11-2025 End: 03-11-2025 Emergency department patient visit No Primary Care Physician -Emergency Department Start: 03-10-2025 End: 03-10-2025 Dr. Roby Balderas MD -[facility] Work Phone: Start: 03-10-2025 End: 03-10-2025 ambulatory Roby Balderas Facility:[facility] [place] Start: 03-04-2025 No Primary Car e Physician -Ultrasound [facility] Work Phone: Start: 03-04-2025 End: 03-04-2025 ambulatory ARNOLDO CARTER Facility:[facility] Start: 02-27-2025 Dr. Rick gutierrez DO [facility] Work Phone: Start: 02-26-2025 Dr. Rick gutierrez DO [facility] Work Phone: Start: 02-25-2025 Niranjan Li DO [facility] Start: 02-25-2025 End: 02-27-2025 ambulatory Kathie Powers Facility:[facility] Start: 02-25-2025 End: 02-27-2025 Dr. Rick Carlin DO -Progressive Care Unit Work Phone: Start: 02-24-2025 End: 02-25-2025 Julita Glover [facility] Work Phone: Start: 02-24-2025 End: 02-25-2025 ambulatory Josy Obrien Facility:[facility] Start: 02-17-2025 Niranjanalvarado Li [facility] Start: 02-17-2025 Dr. Anurag Irene MD -[facility] Work Phone: Start: 02-16-2025 End: 02-17-2025 ambulatory Jae Ash Facility:[facility] Start: 02-16-2025 Evaluation and manag ement of inpatient No Primary Care Physician -Medical Surgical 3 Start: 02-16-2025 End: 02-17-2025 Dr. Jae Ash DO -[facility] 3 Work Phone: Start: 02-16-2025 End: 02-16-2025 Dr. Jerald Sherwood MD -Laboratory [facility] Start: 02-16-2025 End: 02-16-2025 ambulatory Jerald Sherwood Facility:[facility] Start: 02-14-2025 ambulatory NONE PHYSICIAN Facility :[facility] Start: 02-13-2025 End: 02-13-2025 No Primary Care Physician -Emergency Department Work Phone: Start: 02-13-2025 End: 02-13-2025 Emergency department patient visit No Primary Care Physician -Emergency Department Start: 02-11-2025 End: 02-11-2025 ambulatory No Primary Care Physician -Ultrasound [facility] Start: 02-11-2025 End: 02-11-2025 Mina Vines DO -Ultrasound [facility] Work Phone: Start: 02-11-2025 End: 02-11[facility] Start: 02-07-2025 End: 02-08-2025 No Primary Care [...] management of inpatient No Primary Care Physician [facility] Work Phone: Start: 01-28-2025 End: 01-31-2025 Dr. Boone Izquierdo DO -[place] [facility] Work Phone: Start: 01-21-2025 Dr. Anurag Irene MD -[facility] Work Phone: Start: 01-20-2025 Dr. Anurag Irene MD -[facility] Work Phone: Start: 01-19-2025 Dr. Anurag Irene MD [facility] Inpatient [facility] Work Phone: Start: 01-18-2025 Dr. Anurag Irene MD -[facility] Work Phone: Start: 01-17-2025 Dr. Anurag Irene MD -[facility] Work Phone: Start: 01-16-2025 Dr. Cielo Tovar MD [facility] Work Phone: Start: 01-15-2025 Dr. Cielo Tovar MD [facility] Work Phone: Start: 01-14-2025 Dr. Cielo Tovar MD [facility] Work Phone: Start: 01-13-2025 Dr. Cielo Tovar MD [facility] Work Phone: Start: 01-12-2025 Dr. Cielo Tovar MD [facility] Work Phone: Start: 01-11-2025 Dr. Jefferson Malave MD - [facility] Start: 01-11-2025 Dr. Cielo Tovar MD [facility] Work Phone: Start: 01-11-2025 Dr. Bola Meraz DO -[facility] Start: 01-10-2025 Dr. Cielo Tovar MD [facility] Work Phone: Start: 01-09-2025 ambulatory Yaritza Leo [facility] Start: 01-09-2025 End: 01-21-2025 Evaluation and management of inpatient No Primary Care Physician [facility] Work Phone: Start: 01-09-2025 End: 01-21-2025 Dr. Yaritza Leo DO -Intensive Care Unit Work Phone: Start: 01-05-2025 Dr. Hill Acuña MD -[facility] Work Phone: Start: 01-04-2025 Dr. Hill Acuña MD -[facility] Work Phone: Start: 01-03-2025 Dr. Hill Acuña MD -[facility] Work Phone: Start: 01-02-2025 ambulatory Buster Fuchs Fac ility:[facility] Start: 01-02-2025 End: 01-05-2025 Evaluation and management of inpatient No Primary Care Physician [facility] Work Phone: Start: 01-02-2025 End: 01-05-2025 Dr. Buster Fuchs MD -Progressive Care Unit Work Phone: Start: 12-30-2024 End: 12-30-2024 No Primary Care Physician -Emergency Department Work Phone: Start: 12-30-2024 End: 12-30-2024 Emergency department patient visit No Primary Care Physician [facility] Work Phone: Start: 12-26-2024 End: 12-26-2024 No Primary Care Physician -Emergency Department Work Phone: Start: 12-26-2024 End: 12-26-2024 Emergency department patient visit No Primary Care Physician [facility] Work Phone: Start: 12-15-2024 End: 12-15-2024 ambulatory No Primary Care Physician [facility] Work Phone: Start: 12-15-2024 End: 12-15-2024 Josy Elias KINESIOLOGY PROFESSOR-C -Ultrasound [facility] Work Phone: Start: 12-15-2024 End: 12-15-2024 ambulatory Josy Elias Facility:[facility] Start: 12-07-2024 End: 12-10-2024 ambulatory Eva Pichardo MD Work Phone: Urology Start: 12-07-2024 End: 12-07-2024 [facility] KINESIOLOGY PROFESSOR-C -Laboratory, [facility] Start: 12-07-2024 End: 12-07-2024 ambulatory [facility] Facility:[facility] Start: 12-02-2024 Dr. Hill Acuña MD - [facility] Work Phone: Start: 12-01-2024 Dr. Hill Acuña MD - [facility] Work Phone: Start: 11-30-2024 Dr. Hill Acuña MD - [facility] Work Phone: Start: 11-29-2024 Dr. Hill Acuña MD - [facility] Work Phone: Start: 11-28-2024 ambulatory [facility] Start: 11-28-2024 End: 12-02-2024 Evaluation and management of inpatient [facility] Facility:[facility] Start: 11-28-2024 End: 12-02-2024 Dr. Hill Acuña MD -Progressive Care Unit Work Phone: Start: 11-25-2024 Dr. Anurag Irene MD -[facility] In[facility] Work Phone: Start: 11-24-2024 Dr. Anurag Irene MD -[facility] Work Phone: Start: 11-23-2024 ambulatory Jae Ash Fac ility:[facility] Start: 11-23-2024 End: 11-25-2024 Evaluation and management of inpatient Jae Ash Facility:[facility] Start: 11-23-2024 End: 11-25-2024 Dr. Anurag Irene MD -Medical Surgical 3 Work Phone: Start: 11-22-2024 Dr. Anurag Irene MD -[facility] In[facility] Work Phone: Start: 11-21-2024 ambulatory Jae Ash Fac ility:[facility] Start: 11-21-2024 observation encounter No Prima ry Care Physician [facility] Work Phone: Start: 11-21-2024 Dr. Jae Mosteller DO -Medical Surgical 3 Work Phone: Start: 11-18-2024 Patient encounter status Jeremi Abreu RN Work Phone: [facility] Work Phone: Start: 11-18-2024 End: 11-18-2024 Telephone encounter Jeremi Abreu RN Work Phone: [facility] Center Comment on above: Outcome Liver Transp lant Selection Committee Start: 11-15-2024 End: 11-15-2024 Evaluation and management of inpatient Izabela Harvey DDS Work Phone: Dentistry Comment on above: Liver transplant can didate (Primary Dx); Pre-operative clearance Start: 11-15-2024 End: 11-15-2024 Preoperative state Izabela Harvey DDS Work Phone: [facility] Start: 11-15-2024 End: 11-15-2024 Social Work Marah Arauz DATA SUPPORT SPECIALIST Work Phone: Transplant Center Start: 11-12-2024 End: 11-12-2024 Patient encounter status Lizett Guzman [facility] Start: 11-12-2024 End: 11-12-2024 Orders Only Liver Txp Coordinator Work Phone: Transplant Center Comment on above: 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 Kathie sales In[facility] Physicians Work Phone: Start: 11-09-2024 Dr. Kathie sales [facility] Work Phone: Start: 11-08-2024 Dr. Kathie sales [facility] Work Phone: Start: 11-07-2024 Dr. [...] Physicians Work Phone: Start: 11-01-2024 Niranjan Li [facility] Start: 10-31-2024 Dr. Buster Fuchs MD -[place] [facility] Work Phone: Start: 10-30-2024 Niranjan Li [facility] Start: 10-30-2024 Dr. Buster Fuchs MD -[place] [facility] Work Phone: Start: 10-29-2024 Dr. Bola Meraz DO -[facility] Start: 10-29-2024 ambulatory Kathie Powers Facility:[facility] Start: 10-29-2024 End: 11-11-2024 Evaluation and management of inpatient Dr. Hill Caro DO -Intensive Care Unit Work Phone: Start: 10-29-2024 End: 11-11-2024 Dr. Kathie Powers MD -Progressive Care Unit Work Phone: Start: 10-19-2024 ambulatory [facility] Facility: [facility] Start: 10-04-2024 End: 10-04-2024 Emergency department patient visit MAURICE RINCON [facility] Emergency Medicine Comment on above: Other ascites (Prima ry Dx); Abdominal pain, generalized; Other cirrhosis of liver; Peripheral edema; Coagulopathy (Multi); Hyperbilirubinemia; Cirrhosis of liver with ascites, unspecified hepatic cirrhosis type (Multi) Start: 09-29-2024 ambulatory [facility] Facility: [facility] Start: 09-29-2024 Non-patient / Non-visit Jasmine nunez KINESIOLOGY PROFESSOR-C -[facility] Start: 09-29-2024 Jasmine Morocho KINESIOLOGY PROFESSOR-C - [facility] Start: 09-29-2024 End: 09-29-2024 ambulatory No Primary Care Physician [facility] Work Phone: Start: 09-29-2024 End: 09-29-2024 Patient encounter procedure No Primary Care Physician -Ultrasound, [facility] Work Phone: Start: 09-29-2024 End: 09-29-2024 No Primary Care Physician -Ultrasound, [facility] Work Phone: Start: 09-29-2024 End: 09-29-2024 [facility] Facility:[facility] Start: 09-14-2024 Non-patient / Non-visit Dr. Boone James [facility] Inpatient Physicians Work Phone: Start: 09-14-2024 Dr. Boone Izquierdo [facility] Inpatient Physicians Work Phone: Start: 09-13-2024 Non-patient / Non-visit Dr. Boone James [facility] Inpatient Physicians Work Phone: Start: 09-13-2024 Dr. Boone Izquierdo [facility] Inpatient Physicians Work Phone: Start: 09-12-2024 Non-patient / Non-visit Dr. Noonan [facility] Inpatient Physicians Work Phone: Start: 09-12-2024 Dr. Jae Ash [facility] Inpatient Physicians Work Phone: Start: 09-11-2024 Non-patient / Non-visit Dr. Noonan [facility] Inpatient Physicians Work Phone: Start: 09-11-2024 Dr. Jae Ash [facility] Inpatient Physicians Work Phone: Start: 09-10-2024 Non-patient / Non-visit Dr. Slaughter [facility] Inpatient Physicians Work Phone: Start: 09-10-2024 Dr. Jae Ash [facility] Inpatient Physicians Work Phone: Start: 09-09-2024 Non-patient / Non-visit Dr. Slaughter [facility] Inpatient Physicians Work Phone: Start: 09-[facility] Start: 09-08-2024 Non-patient / Non-visit Dr. Anurag Irene MD [facility] Inpatient Physicians Work Phone: Start: 09-08-2024 Dr. Anurag Irene MD [facility] Inpatient Physicians Work Phone: Start: 09-07-2024 Non-patient / Non-visit Dr. Anurag Irene MD [facility] Inpatient Physicians Work Phone: Start: 09-07-2024 Dr. Anurag Irene MD [facility] Inpatient Physicians Work Phone: Start: 09-06-2024 Non-patient / Non-visit Dr. Anurag Irene MD [facility] Inpatient Physicians Work Phone: Start: 09-06-2024 Dr. Anurag Irene MD [facility] Inpatient Physicians Work Phone: Start: 09-05-2024 ambulatory Boone Izquierdo Facility:[facility] Start: 09-05-2024 End: 09-15-2024 Evaluation and management of inpatient Dr. Boone Izquierdo DO -Progressive Care Unit Work Phone: Start: 09-05-2024 End: 09-15-2024 Dr. Boone Izquierdo DO -Progressive Care Unit Work Phone: Start: 09-02-2024 Non-patient / Non-visit Dr. Lissette Carlin [facility] Inpatient Physicians Work Phone: Start: 09-02-2024 Dr. Rick gutierrez [facility] Inpatient Physicians Work Phone: Start: 09-01-2024 Non-patient / Non-visit Niranjan Frie nd DO -[facility] Start: 09-01-2024 Niranjan Friend DO -[facility] Start: 09-01-2024 Non-patient / Non-visit Dr. Lissette Carlin [facility] Inpatient Physicians Work Phone: Start: 09-01-2024 Dr. Rick gutierrez [facility] Inpatient Physicians Work Phone: Start: 08-31-2024 Non-patient / Non-visit Niranjan Frie nd DO -[facility] Start: 08-31-2024 Niranjan Friend DO -[facility] Start: 08-31-2024 Non-patient / Non-visit Dr. Lissette Carlin [facility] Inpatient Physicians Work Phone: Start: 08-31-2024 Dr. Rick gutierrez [facility] Inpatient Physicians Work Phone: Start: 08-31-2024 Non-patient / Non-visit Dr. Bola Patiño own DO -[facility] Start: 08-31-2024 Dr. Bola Meraz DO -[facility] Start: 08-30-2024 Non-patient / Non-visit Niranjan Frie nd DO -[facility] Start: 08-30-2024 Niranjan Friend DO -[facility] Start: 08-30-2024 Non-patient / Non-visit Dr. Lissette Carlin [facility] Inpatient Physicians Work Phone: Start: 08-30-2024 Dr. Rick gutierrez [facility] Inpatient Physicians Work Phone: Start: 08-30-2024 Non-patient / Non-visit Dr. Bola Patiño own DO -[facility] Start: 08-30-2024 Dr. Bola Meraz DO -[facility] Start: 08-29-2024 ambulatory Maria Guadalupe L White Facility [facility] Start: 08-29-2024 End: 09-02-2024 Evaluation and management [...] Physician Start: 01-28-2025 Assay of lactate No [facility] Care Physician Start: 01-28-2025 Computed tomography of [...] Physician Start: 11-28-2024 Assay of lactate No [facility] Care Physician Start: 11-28-2024 Urine microscopy: red [...] Physician Start: 11-21-2024 Assay of lactate No [facility] Care Physician Start: 11-21-2024 Urine microscopy: red cells No Primary Care Physician Start: 11-21-2024 Urnls dip stick/tabl et reagent auto microscopy No Primary Care Physician Start: 11-21-2024 Plain chest X-ray No [facility] Care Physician Start: 11-18-2024 Antibody screen KATHIE P IERCE Comment on above: Order Comment: Speci men Type: BLOOD SPECIMENOrdering Facility: [facility] Address: [address] [place] [address] Performed By: #### T SCR ####CC MAIN BLOOD BANKCLIA [id number] [address] Start: 11-16-2024 End: 11-16-2024 Oscar Abreu RN Work Phone: Start: 11-15-2024 Antibody screen KATHIE P IERCE Comment on above: Order Comment: Speci men Type: BLOOD SPECIMENOrdering Facility: [facility] Address: [address] [place] [address] Performed By: #### T SCR ####CC MAIN BLOOD BANKCLIA [id number] [address] Start: 11-13-2024 Lipid 1996 panel - S sandie or Plasma Marah Arauz DATA SUPPORT SPECIALIST Work Phone: Start: 11-12-2024 Antibody screen KATHIE P IERCE Comment on above: Order Comment: Speci men Type: BLOOD SPECIMENOrdering Facility: [facility] Address: [address] [place] [address] Performed By: #### T SCR ####CC MAIN BLOOD BANKCLIA [id number] [address] [place] Start: 11-10-2024 Urine microscopy: [...] Physician Start: 11-09-2024 Assay of lactate No [facility] Care Physician Start: 11-08-2024 Serum inorganic phos [...] Start: 09-05-2024 Assay of lactate No Ivonne alex Care Physician Start: 09-05-2024 Folic acid measurement [...] DTaP,Tdap,Td Vaccine (2 - Td or Tdap) [facility] Start: 11-17-2029 Prostate specific antigen measurement Prostate Cancer Screening Discussion [facility] Start: 11-13-2029 Lipid panel Lipid Screening [facility] Start: 11-19-2027 Diabetes Screening Diabetes Screening [facility] Start: 11-17-2027 Diabetes Screening Diabetes Screening [facility] Start: 11-15-2027 Diabetes Screening Diabetes Screening [facility] Start: 11-13-2027 Diabetes Screening Diabetes Screening [facility] Start: 11-18-2025 Creatinine measurement Serum Creatinine [facility] Start: 11-16-2025 Creatinine measurement Serum Creatinine [facility] Start: 11-16-2025 Screening for malignant neoplasm of colon [facility] Start: 11-15-2025 Creatinine measurement Serum Creatinine [facility] Start: 11-12-2025 Creatinine measurement Serum Creatinine [facility] Start: 05-16-2025 Hepatitis A Vaccine (2 of 2 - Risk 2-dose series) Hepatitis A Vaccine (2 of 2 - Risk 2-dose series) [facility] Start: 03-11-2025 [facility] Start: 03-04-2025 Following clinical pathway protocol [facility] Start: 03-02-2025 End: 03-02-2025 Patient encounter procedure 03/02/2025 2:20 PM EDT Office Visit Family Medicine [address] [address] Alex Alexandre MD [address] [place] [address] Hospital discharge, diabetes mx, need for repeat vaccines, and consideration of CT chest [facility] [place] Comment on above: Hospital discharge, diabetes mx, need fo r repeat vaccines, and consideration of CT chest Start: 02-27-2025 Patient discharge [facility] Start: 02-26-2025 [facility] Start: 02-26-2025 Referral to occupational therapist [facility] Start: 02-26-2025 Referral to service [facility] Start: 02-25-2025 Following clinical pathway protocol [facility] Start: 02-25-2025 Assessment of risk of venous thromboembolism [facility] Start: 02-25-2025 Care regimes management [facility] Start: 02-25-2025 Inhalation therapy procedure [facility] Start: 02-25-2025 Insertion of catheter into peripheral vein [facility] Start: 02-25-2025 Measuring intake and output [facility] Start: 02-25-2025 Notification of physician [facility] Start: 02-25-2025 Providing care according to standard [facility] Start: 02-25-2025 Provision of activity privileges [facility] Start: 02-25-2025 Referral to gastroenterology service [facility] Start: 02-25-2025 Referral to service [facility] Start: 02-25-2025 End: 02-25-2025 [facility] Start: 02-25-2025 Admission procedure [facility] Start: 02-25-2025 Patient referral to dietitian [facility] Start: 02-17-2025 [facility] Start: 02-17-2025 Referral to service [facility] Start: 02-17-2025 Admission procedure [facility] Start: 02-17-2025 Referral to occupational therapist [facility] Start: 02-17-2025 Referral to service [facility] Start: 02-17-2025 Patient discharge [facility] Start: 02-16-2025 Application of intermittent pneumatic compression device [facility] Start: 02-16-2025 Ambulation without limitation [facility] Start: 02-16-2025 Assessment of risk of venous thromboembolism [facility] Start: 02-16-2025 Incentive spirometry [facility] Start: 02-16-2025 Insertion of catheter into peripheral vein [facility] Start: 02-16-2025 Measuring intake and output [facility] Start: 02-16-2025 Oxygen therapy [facility] Start: 02-16-2025 Providing care according to standard [facility] Start: 02-16-2025 Referral to gastroenterology service [facility] Start: 02-16-2025 Referral to service [facility] Start: 02-16-2025 [facility] Start: 02-16-2025 Care of central venous catheter [facility] Start: 02-16-2025 Following clinical pathway protocol [facility] Start: 02-16-2025 Prothrombin time [facility] Start: 02-16-2025 Hospital admission, emergency, from emergency room, medical nature [facility] Start: 02-16-2025 Verification routine [facility] Start: 02-16-2025 Admission procedure [facility] Start: 02-16-2025 Acute hepatitis panel [facility] Start: 02-16-2025 Assay of ammonia [facility] Start: 02-16-2025 Collection venous blood venipuncture [facility] Start: 02-16-2025 Patient referral to dietitian [facility] Start: 02-13-2025 [facility] Start: 02-13-2025 Assay of lipase [facility] Start: 02-13-2025 Blood count complete auto&auto difrntl wbc [facility] Start: 02-13-2025 Comprehensive metabolic panel [facility] Start: 02-13-2025 Ct abdomen & pelvis w/contrast material [facility] Start: 02-13-2025 Emergency dept visit high severity&threat funcj [facility] Start: 02-13-2025 Ther proph/dx njx iv push single/1st sbst/drug [facility] Start: 02-13-2025 Therapeutic injection iv push each new drug [facility] Start: 02-08-2025 Centesis [facility] Start: 02-08-2025 End: 02-08-2025 [facility] Start: 02-02-2025 End: 02-02-2025 Patient encounter procedure 02/02/2025 9:20 AM EDT Office Visit [facility] [place] [address] [place] [address] Ray Vega MD [address] [place] [address] est care [facility] [place] Comment on above: est care Start: 01-31-2025 Patient discharge [facility] Start: 01-31-2025 Referral to service [facility] Start: 01-31-2025 [facility] Start: 01-29-2025 [facility] Start: 01-28-2025 Blood culture [facility] Start: 01-28-2025 Application of intermittent pneumatic compression device [facility] Start: 01-28-2025 Following clinical pathway protocol [facility] Start: 01-28-2025 Assessment of risk of venous thromboembolism [facility] Start: 01-28-2025 Care regimes management [facility] Start: 01-28-2025 Documentation procedure [facility] Start: 01-28-2025 Insertion of catheter into peripheral vein [facility] Start: 01-28-2025 Notification of physician [facility] Start: 01-28-2025 Providing care according to standard [facility] Start: 01-28-2025 Provision of activity privileges [facility] Start: 01-28-2025 Referral to occupational therapist [facility] Start: 01-28-2025 Referral to service [facility] Start: 01-28-2025 Speech therapy assessment [facility] Start: 01-28-2025 End: 01-28-2025 [facility] Start: 01-28-2025 Admission procedure [facility] Start: 01-28-2025 End: 01-28-2025 [facility] Start: 01-28-2025 End: 01-28-2025 [facility] Start: 01-28-2025 Patient referral to dietitian [facility] Start: 01-21-2025 Patient discharge [facility] Start: 01-18-2025 End: 01-18-2025 Microbial culture, body fluid [facility] Start: 01-18-2025 Care planning and problem solving actions [facility] Start: 01-18-2025 Anaerobic microbial culture [facility] Start: 01-17-2025 [facility] Start: 01-16-2025 [facility] Start: 01-15-2025 [facility] Start: 01-14-2025 Consultation for pain [facility] Start: 01-14-2025 [facility] Start: 01-13-2025 Administration of blood product [facility] Start: 01-13-2025 [facility] Start: 01-12-2025 [facility] Start: 01-11-2025 Application of intermittent pneumatic compression device [facility] Start: 01-11-2025 Referral to general surgeon [facility] Start: 01-11-2025 [facility] Start: 01-10-2025 Care planning and problem solving actions [facility] Start: 01-09-2025 Assessment of risk of venous thromboembolism [facility] Start: 01-09-2025 Cardiac monitoring [facility] Start: 01-09-2025 Catheterization of vein [facility] Start: 01-09-2025 Inhalation therapy procedure [facility] Start: 01-09-2025 Insertion of catheter into peripheral vein [facility] Start: 01-09-2025 Measuring intake and output [facility] Start: 01-09-2025 Notification of physician [facility] Start: 01-09-2025 Patient referral to dietitian [facility] Start: 01-09-2025 Providing care according to standard [facility] Start: 01-09-2025 Referral to occupational therapist [facility] Start: 01-09-2025 Referral to service [facility] Start: 01-09-2025 Vital signs measurements [facility] Start: 01-09-2025 [facility] Start: 01-09-2025 End: 01-09-2025 Following clinical pathway protocol [facility] Start: 01-09-2025 Bacterial nucleic acid assay [facility] Start: 01-09-2025 Verification routine [facility] Start: 01-09-2025 Admission procedure [facility] Start: 01-09-2025 Hospital admission, emergency, from emergency room, medical nature [facility] Start: 01-09-2025 End: 01-09-2025 [facility] Start: 01-09-2025 Consultation [facility] Start: 01-05-2025 Patient discharge [facility] Start: 01-04-2025 [facility] Start: 01-03-2025 End: 01-03-2025 [facility] Start: 01-03-2025 End: 01-03-2025 Care regimes management [facility] Start: 01-03-2025 Notification of physician [facility] Start: 01-03-2025 [facility] Start: 01-02-2025 Application of intermittent pneumatic compression device [facility] Start: 01-02-2025 Ambulation without limitation [facility] Start: 01-02-2025 Assessment of risk of venous thromboembolism [facility] Start: 01-02-2025 Care regimes management [facility] Start: 01-02-2025 Insertion of catheter into peripheral vein [facility] Start: 01-02-2025 Measuring intake and output [facility] Start: 01-02-2025 Notification of physician [facility] Start: 01-02-2025 Providing care according to standard [facility] Start: 01-02-2025 Referral to occupational therapist [facility] Start: 01-02-2025 Referral to service [facility] Start: 01-02-2025 End: 01-02-2025 [facility] Start: 01-02-2025 Admission procedure [facility] Start: 01-02-2025 Verification routine [facility] Start: 01-02-2025 Hospital admission, emergency, from emergency room, medical nature [facility] Start: 01-02-2025 End: 01-02-2025 [facility] Start: 01-02-2025 Consultation [facility] Start: 01-02-2025 Patient referral to dietitian [facility] Start: 12-30-2024 Assay of magnesium [facility] Start: 12-30-2024 Assay of troponin quantitative [facility] Start: 12-30-2024 Basic metabolic panel calcium total [facility] Start: 12-30-2024 Blood count complete auto&auto difrntl wbc [facility] Start: 12-30-2024 Culture bacterial quanttative colony count urine [facility] Start: 12-30-2024 Culture bct isol&prsmptv id isolate ea urine [facility] Start: 12-30-2024 Ecg routine ecg w/least 12 lds trcg only w/o i&r [facility] Start: 12-30-2024 Emergency department visit high/urgent severity [facility] Start: 12-30-2024 Gluc bld gluc mntr dev cleared fda spec home use [facility] Start: 12-30-2024 Iv infusion hydration each additional hour [facility] Start: 12-30-2024 Iv infusion therapy/prophylaxis /dx 1st to 1 hr [facility] Start: 12-30-2024 Radiologic exam chest 2 views [facility] Start: 12-30-2024 Urnls dip stick/tablet reagent auto microscopy [facility] Start: 12-30-2024 [facility] Start: 12-30-2024 End: 12-30-2024 [facility] Start: 12-29-2024 End: 12-29-2024 Patient encounter procedure Endocrinology Comment on above: Diabetes maangement Diabetes maangement/ LVM OF SOONER APPOINTMENT 11/21 Start: 12-26-2024 [facility] Start: 12-26-2024 End: 12-26-2024 [facility] Start: 12-23-2024 End: 12-23-2024 Patient encounter procedure 12/23/2024 9:45 AM EDT Office Visit [facility] [address] [facility] [address] Pamella Frances, BILINGUAL TEACHER ASSISTANT.ACTIVITIES OFFICER [address] [place], [place] [id number] HOSPITAL FOLLOW UP [facility] Comment on above: HOSPITAL FOLLOW UP Start: 12-12-2024 Hepatitis B Vaccine (2 of 2 - CpG 2-dose series) Hepatitis B Vaccine (2 of 2 - CpG 2-dose series) [facility] Start: 12-07-2024 End: 12-07-2024 Patient encounter procedure 12/07/2024 3:45 PM EDT Office Visit Urology [address] [address] Eva Pichardo MD [address] [place] [address] L ureteral stent, s/p staghorn calculi [facility] Comment on above: L ureteral stent, s/p staghorn calculi Start: 12-07-2024 End: 12-07-2024 Patient encounter procedure 12/07/2024 11:20 AM EDT Office Visit [facility] [address] [place] [address] Ksenia Hoyos, BILINGUAL TEACHER ASSISTANT.[facility] [address] [place] [address] Hospital discharge, diabetes mx, need for repeat vaccines, and consideration of CT chest [facility] Comment on above: Hospital discharge, diabetes mx, need fo r repeat vaccines, and consideration of CT chest Start: 12-02-2024 Patient discharge [facility] Start: 12-01-2024 Consultation [facility] Start: 11-29-2024 [facility] Start: 11-28-2024 Enteric precautions [facility] Start: 11-28-2024 Application of intermittent pneumatic compression device [facility] Start: 11-28-2024 Following clinical pathway protocol [facility] Start: 11-28-2024 Assessment of risk of venous thromboembolism [facility] Start: 11-28-2024 Care regimes management [facility] Start: 11-28-2024 Insertion of catheter into peripheral vein [facility] Start: 11-28-2024 Measuring intake and output [facility] Start: 11-28-2024 Notification of physician [facility] Start: 11-28-2024 Providing care according to standard [facility] Start: 11-28-2024 Provision of activity privileges [facility] Start: 11-28-2024 Referral to occupational therapist [facility] Start: 11-28-2024 Referral to service [facility] Start: 11-28-2024 End: 11-28-2024 [facility] Start: 11-28-2024 Admission procedure [facility] Start: 11-28-2024 Inhalation therapy procedure [facility] Start: 11-28-2024 Patient referral to dietitian [facility] Start: 11-25-2024 Patient discharge [facility] Start: 11-24-2024 Administration of blood product [facility] Start: 11-23-2024 Admission procedure [facility] Start: 11-22-2024 [facility] Start: 11-21-2024 Care regimes management [facility] Start: 11-21-2024 Notification of physician [facility] Start: 11-21-2024 Following clinical pathway protocol [facility] Start: 11-21-2024 Ambulation without limitation [facility] [facility] Start: 11-21-2024 Assessment of risk of venous thromboembolism [facility] Start: 11-21-2024 Insertion of catheter into peripheral vein [facility] Start: 11-21-2024 Measuring intake and output [facility] Start: 11-21-2024 Providing care according to standard [facility] Start: 11-21-2024 Referral to occupational therapist [facility] Start: 11-21-2024 Referral to service [facility] Start: 11-21-2024 End: 11-21-2024 [facility] Start: 11-21-2024 Verification routine [facility] Start: 11-21-2024 Admission procedure [facility] Start: 11-21-2024 Hospital admission, emergency, from emergency room, medical nature [facility] Start: 11-21-2024 End: 11-21-2024 [facility] Start: 11-21-2024 Consultation [facility] Start: 11-18-2024 End: 11-18-2024 Patient encounter procedure 11/18/2024 3:30 PM EDT Office Visit Cardiology [address] [place] [address] G81-25; Liver Tx Evaluation; CONTACT PRECAUTIONS - C-Diff; last of the day Cardiology Comment on above: G25; Liver Tx Evaluation; CONTACT PRECAUTIONS - C-Diff; last of the day Start: 11-17-2024 End: 11-17-2024 Patient encounter procedure Pulmonary Medicine Comment on above: C-diff precuations/RA-2L/Reg WC Start: 11-15-2024 End: 11-15-2024 Patient encounter procedure 11/15/2024 1:15 PM EDT Office Visit Dentistry [address] [address] Izabela Harvey, DDS [address] [place] [address] BEDSIDE - TRANSPLANT [place] - [id number] - Consult Placed 11/12/24 Dentistry Comment on above: BEDSIDE - TRANSPLANT [place] - [id number] - Consult Placed 11/12/24 Start: 11-10-2024 Patient discharge [facility] Start: 11-09-2024 Consultation [facility] Start: 11-09-2024 Referral to gastroenterology service [facility] Start: 11-09-2024 Glucose measurement, body fluid [facility] Start: 11-08-2024 Urinary bladder residual urine study [facility] Start: 11-08-2024 [facility] Start: 11-05-2024 Removal of urinary catheter [facility] Start: 11-04-2024 [facility] Start: 10-31-2024 [facility] Start: 10-30-2024 Attention to flatus tube [facility] Start: 10-30-2024 Referral to gastroenterology service [facility] Start: 10-29-2024 Insertion of nasogastric tube [facility] Start: 10-29-2024 Bacteria identified in Blood by Culture Blood Culture [facility] Start: 10-29-2024 Referral to service [facility] Start: 10-29-2024 Application of intermittent pneumatic compression device [facility] Start: 10-29-2024 Following clinical pathway protocol [facility] Start: 10-29-2024 Cardiac monitoring [facility] Start: 10-29-2024 Catheterization of vein [facility] Start: 03-28-2025 Enteric precautions [facility] Start: 10-29-2024 Notification of physician [facility] Start: 10-29-2024 Vital signs measurements [facility] Start: 10-29-2024 [facility] Start: 10-29-2024 End: 10-29-2024 Consultation [facility] Start: 10-29-2024 Clostridioides difficile DNA [Presence] in Unspecified specimen by ANANTH with probe detection [facility] Start: 10-29-2024 Complete ultrasound of kidneys and bladder Kidney and Bladder [facility] Start: 10-29-2024 Lactoferrin [Presence] in Stool by Immunoassay [facility] Start: 10-29-2024 Nucleic acid assay [facility] Start: 10-29-2024 Admission procedure [facility] Start: 10-29-2024 End: 10-29-2024 Hospital admission, emergency, from emergency room, medical nature [facility] Start: 10-29-2024 End: 10-29-2024 [facility] Start: 10-29-2024 Patient referral to dietitian [facility] Start: 10-28-2024 [facility] Start: 10-28-2024 Bacteria identified in Urine by Culture Urine Culture [facility] Start: 09-14-2024 Patient discharge [facility] Start: 09-06-2024 Referral to service [facility] Start: 09-06-2024 Referral to occupational therapist [facility] Start: 09-06-2024 Referral to claim benefit specialist [facility] Start: 09-06-2024 Consultation [facility] Start: 09-06-2024 Care planning and problem solving actions [facility] Start: 09-06-2024 [facility] Start: 09-05-2024 Application of intermittent pneumatic compression device [facility] Start: 09-05-2024 Continuous positive airway pressure ventilation treatment [facility] Start: 09-05-2024 Cardiac monitoring [facility] Start: 09-05-2024 Care regimes management [facility] Start: 09-05-2024 Catheterization of vein [facility] Start: 09-05-2024 Consultation [facility] Start: 09-05-2024 Notification of physician [facility] Start: 09-05-2024 Vital signs measurements [facility] Start: 09-05-2024 End: 09-05-2024 [facility] Start: 09-05-2024 Following clinical pathway protocol [facility] Start: 09-05-2024 Admission procedure [facility] Start: 09-05-2024 [facility] Start: 09-02-2024 Patient discharge [facility] Start: 08-31-2024 Care planning and problem solving actions [facility] Start: 08-30-2024 [facility] Start: 08-29-2024 Following clinical pathway protocol [facility] Start: 08-29-2024 Assessment of risk of venous thromboembolism [facility] Start: 08-29-2024 Care regimes management [facility] Start: 08-29-2024 Fall prevention [facility] Start: 08-29-2024 Inhalation therapy procedure [facility] Start: 08-29-2024 Insertion of catheter into peripheral vein [facility] Start: 08-29-2024 Measuring intake and output [facility] Start: 08-29-2024 Notification of physician [facility] Start: 08-29-2024 Patient referral to dietitian [facility] Start: 08-29-2024 Providing care according to standard [facility] Start: 08-29-2024 Provision of activity privileges [facility] Start: 08-29-2024 Referral to gastroenterology service [facility] Start: 08-29-2024 Referral to claim benefit specialist [facility] Start: 08-29-2024 Referral to occupational therapist [facility] Start: 08-29-2024 Referral to service [facility] Start: 08-29-2024 Vital signs measurements [facility] Start: 08-29-2024 End: 08-29-2024 [facility] Start: 08-29-2024 Admission procedure [facility] Start: 08-21-2024 [facility] Start: 04-04-2024 COVID-19 Vaccine ( season) COVID-19 Vaccine ( season) [facility] Start: 04-04-2024 Influenza vaccination Influenza Vaccine (#1) [facility] Start: 2021 Prostate specific antigen measurement Prostate Cancer Screening Discussion [facility] Start: 2016 Zoster Vaccines (1 of 2) Zoster Vaccines (1 of 2) [facility] Start: 2011 Screening for malignant neoplasm of colon [facility] Start: 2001 Lipid panel Lipid Screening [facility] Start: 1988 DTaP/Tdap/Td Vaccines (1 - Tdap) DTaP/Tdap/Td Vaccines (1 - Tdap) [facility] Start: 1985 Hepatitis A Vaccine (1 of 2 - Risk 2-dose series) Hepatitis A Vaccine (1 of 2 - Risk 2-dose series) [facility] Start: 1985 Hepatitis A Vaccines (1 of 2 - Risk 2-dose series) Hepatitis A Vaccines (1 of 2 - Risk 2-dose series) [facility] Start: 1985 Hepatitis B Vaccine (1 of 3 - 19+ 3-dose series) Hepatitis B Vaccine (1 of 3 - 19+ 3-dose series) [facility] Start: 1985 Hepatitis B Vaccines (1 of 3 - 19+ 3-dose series) Hepatitis B Vaccines (1 of 3 - 19+ 3-dose series) [facility] Start: 1985 Pneumococcal vaccination Pneumococcal Vaccine (1 of 2 - PCV) [facility] Start: 1985 Pneumococcal Vaccine: 50+ (1 of 2 - PCV) Pneumococcal Vaccine: 50+ (1 of 2 - PCV) [facility] Start: 1985 Shingrix Vaccine (1 of 2) Shingrix Vaccine (1 of 2) [facility] Start: 1985 Urine microalbumin profile DTaP,Tdap,Td Vaccine (1 - Tdap) [facility] Start: 1984 Annual PCP Team Chronic Disease Visit Annual PCP Team Chronic Disease Visit [facility] Start: 1984 Anxiety Screening Anxiety Screening [facility] Start: 1984 Depression Screening Depression Screening [facility] Start: 1984 Hepatitis C screening Hepatitis C Screening [facility] Start: 1984 HIV screening HIV Screening [facility] Start: 1976 Glaucoma screening Diabetes: Retinopathy Screening [facility] Start: 1967 MMR Vaccines (1 of 1 - Standard series) MMR Vaccines (1 of 1 - Standard series) [facility] Start: 1966 Hemoglobin A1c measurement Diabetes: Hemoglobin A1C [facility] Start: 1966 HIV screening HIV Screening [facility] Start: 1966 Lipid panel Lipid Panel [facility] Start: 1966 Screening for malignant neoplasm of colon [facility] Start: 1966 Urine screening for protein Diabetes: Urine Protein Screening [facility] Start: 1966 Yearly Adult Physical Yearly Adult Physical [facility] Alanine aminotransfe rase [Enzymatic activity/volume] in Serum or Plasma [facility] End: 10-04-2024 Albumin [Mass/volume] in Body fluid [facility] Work Phone: Comment on above: Once (Lab) for 1 Occurrences starting until 10/04/2024 Once for 1 Occurrenc es starting 10/04/2024 until 10/04/2024 Albumin [Mass/volume ] in Serum or Plasma [facility] Alkaline phosphatase [Enzymatic activity/volume] in Serum or Plasma [facility] Anion gap in Serum o r Plasma [facility] End: 10-04-2024 Bacteria identified in Body fluid by Culture [facility] Work Phone: Comment on above: Once (Lab) for 1 Occurrences starting until 10/04/2024 Bilirubin, total measurement [facility] BUN/Creatinine ratio [facility] Calcium [Mass/volume ] in Serum or Plasma [facility] Carbon dioxide, tota l [Moles/volume] in Central venous blood [facility] CBC W Auto Different ial panel - Blood [facility] End: 10-04-2024 Clostridioides difficile toxin A+B tcdA+tcdB genes [Presence] in Stool by ANANTH with probe detection C. difficile, PCR Microbiology STAT STAT (Lab) for 1 Occurrences starting 10/04/2024 until 10/04/2024 [facility] Work Phone: Comment on above: STAT (Lab) for 1 Occurrences starting until 10/04/2024 Comprehensive metabo lic 2000 panel - Serum or Plasma [facility] Creatinine [Mass/vol ume] in Serum or Plasma [facility] Cytology report of B carmelina fluid Cyto stain [facility] Erythrocyte mean corpuscular volume determination [facility] End: 10-04-2024 Extra Urine Toney Tube Extra Urine Toney Tube Lab Timed Once for 1 Occurrences starting 10/04/2024 until 10/04/2024 [facility] Work Phone: Comment on above: Once for 1 Occurrences starting 10/05/19 until 10/04/2024 End: 10-04-2024 Glucose [Mass/volume] in Body fluid [facility] Work Phone: Comment on above: Once (Lab) for 1 Occurrences starting until 10/04/2024 Once for 1 Occurrenc es starting 10/04/2024 until 10/04/2024 Glucose [Mass/volume ] in Serum or Plasma [facility] Glucose [Mass/volume ] in Serum or Plasma [facility] Hematocrit [Volume Fraction] of Blood [facility] Hemoglobin [Mass/vol ume] in Blood [facility] End: 10-04-2024 Hemoglobin.gastrointestin al.lower [Presence] in Stool by Immunoassay Fecal Occult Blood Immunoassy Microbiology STAT Once (Lab) for 1 Occurrences starting 10/04/2024 until 10/04/2024 [facility] Work Phone: Comment on above: Once (Lab) for 1 Occurrences starting until 10/04/2024 Hepatitis A virus Ig M Ab [Presence] in Serum [facility] Hepatitis B core ant ibody measurement, IgM type [facility] Hepatitis B surface antigen measurement [facility] Hepatitis C antibody measurement [facility] INR in Blood by Coagulation assay [facility] End: 10-04-2024 Lactate dehydrogenase [Enzymatic activity/volume] in Body fluid by Lactate to pyruvate reaction [facility] Work Phone: Comment on above: Once (Lab) for 1 Occurrences starting until 10/04/2024 Once for 1 Occurrenc es starting 10/04/2024 until 10/04/2024 Lactate dehydrogenas e [Enzymatic activity/volume] in Body fluid by Pyruvate to lactate reaction [facility] Lactic acid measurement [facility] Lactic acid measurement [facility] Leukocytes [#/volume ] in Blood [facility] Magnesium measurement [facility] Mean corpuscular hemoglobin concentration determination [facility] Mean corpuscular hemoglobin determination [facility] Measurement of renal function [facility] Neutrophil count [facility] Neutrophil percent differential count [facility] End: 10-04-2024 Non-gynecological cytology method study Cytology (Non-Gynecologic) Pathology and Cytology Routine Once (Lab) for 1 Occurrences starting 10/04/2024 until 10/04/2024 [facility] Service Area Work Phone: Comment on above: Once (Lab) for 1 Occurrences starting until 10/04/2024 Ova OR parasites identification [facility] Patient Education [facility] Work Phone: Patient referral [facility] Work Phone: End: 10-04-2024 pH of Body fluid [facility] Work Phone: Comment on above: Once (Lab) for 1 Occurrences starting until 10/04/2024 Platelets [#/volume] in Blood [facility] Potassium measurement [facility] End: 10-04-2024 Protein [Mass/volume] in Body fluid [facility] Work Phone: Comment on above: Once (Lab) for 1 Occurrences starting until 10/04/2024 Once for 1 Occurrenc es starting 10/04/2024 until 10/04/2024 Protein [Mass/volume ] in Body fluid [facility] Prothrombin time [facility] Red blood cell count [facility] Red cell distributio n width determination [facility] Serum chloride measurement [facility] Sodium measurement [facility] End: 10-04-2024 Stool Pathogen Panel, PCR Stool Pathogen Panel, PCR Microbiology STAT Once (Lab) for 1 Occurrences starting 10/04/2024 until 10/04/2024 [facility] Work Phone: Comment on above: Once (Lab) for 1 Occurrences starting until 10/04/2024 Total protein measurement [facility] UA DIP, URINE (POC) UA DIP, URIN E (POC) Lab Routine Screening for genitourinary condition 1 Occurrences starting 12/07/2024 [facility] Work Phone: Comment on above: 1 Occurrences starting 12/07/2024 Urea nitrogen [Mass/volume] in Serum or Plasma [facility] End: 10-04-2024 Urinalysis complete W Reflex Culture panel - Urine [facility] Service Area Work Phone: Comment on above: Once (Lab) for 1 Occurrences starting until 10/04/2024 Once for 1 Occurrenc es starting 10/04/2024 until 10/04/2024 Urine culture [facility] Urine culture [facility] Urine culture [facility] Urine culture [facility] Urine culture [facility] Urine culture [facility] Urine culture [facility] Urine culture [facility] Immunizations Immunization Date Immunization Notes Care Provider [facility] 11-16-2024 COVID-19 vaccine, ag e 12+ yr ([id number] [facility]) Jeremi Abreu RN Work Phone: [facility] 11-15-2024 pneumococcal conjuga te (PCV20) vaccine, 20 valent (PREVNAR 20) Marah Arauz [facility] Work Phone: [facility] 11-14-2024 hepatitis A vaccine, adult dosage Marah Arauz DATA SUPPORT SPECIALIST Work Phone: [facility] 11-14-2024 Hepatitis B vaccine (recombinant), CpG adjuvanted Marah Arauz DATA SUPPORT SPECIALIST Work Phone: [facility] 11-14-2024 tetanus toxoid, redu danica diphtheria toxoid, and acellular pertussis vaccine, adsorbed Marah Arauz DATA SUPPORT SPECIALIST Work Phone: [facility] 09-20-2024 influenza, seasonal, injectable Jeremi Abreu RN Work Phone: [facility] Work Phone: 09-15-2024 tuberculin skin test ; purified protein derivative solution, intradermal Jeremi Abreu RN Work Phone: [facility] Payers Date Payer Category Payer Self-pay 2024 Medicaid [id number] 2024 Medicaid [id number] 1965 Unknown [id number] 1965 Unknown [id number] Unknown [id number] Social History Date Type Detail Facility Start: 10-04-2024 End: 03-11-2025 Tobacco smoking status NHIS Ex-smoker [facility] Work Phone: History of tobacco use Current smoker [facility] Work Phone: History of tobacco use Cigarette Smoker [facility] Work Phone: Start: 10-04-2024 End: 11-11-2024 Tobacco use and exposure Smokeless tobacco non-user [facility] Work Phone: Start: 10-04-2024 Alcoholic beverage intake Ex-drinker (finding) [facility] Work Phone: Start: 10-04-2024 End: 11-15-2024 [facility] Start: 10-04-2024 End: 11-15-2024 Tobacco use panel [facility] Start: 1965 Sex assigned at Not on file [facility] Work Phone: Start: 09-24-2024 End: 10-04-2024 Exposure to SARS-CoV-2 (event) Not sure [facility] Work Phone: Start: 10-11-2024 End: 11-21-2024 Sex Male (finding) [facility] Start: 1965 Sex Assigned At Male [facility] Start: 11-11-2024 End: 11-18-2024 Alcoholic beverage intake Lifetime non-drinker (finding) [facility] Has the [facility], or [facility] threatened to shut off services in your home in past 12Mo No [facility] (I/We) worried wheth er (my/our) food would run out before (I/we) got money to buy more. Sometimes true [facility] In the past 12 month s, has lack of transportation kept you from medical appointments or from getting medications? Yes [facility] Medical Equipment Procedure Code Equipment Code Equipment Origin al Text Equipment Identifier Dates Cystoscopic insertion of stent ([id number]) [id number] FDA Start: 09-05-2024 Goals Date Patient Goal Desired Activity /State Functional Status Date Assessment Result Facility 02-27-2025 Functional status Ambulates [facility] Work Phone: 02-17-2025 Functional status Bathroom Privi lege;Back to bed [facility] Work Phone: 01-31-2025 Functional status Ambulates [facility] Work Phone: 01-21-2025 Functional status Ambulates [facility] Work Phone: 01-05-2025 Functional status With Assist of 1 [facility] Work Phone: 01-05-2025 Functional status Ambulates;Bath room Privilege [facility] Work Phone: 12-02-2024 Functional status Ambulates [facility] Work Phone: 11-25-2024 Functional status Bedrest [facility] Work Phone: 11-18-2024 Are you deaf, or do you have serious difficulty hearing Yes 11/18/2024 10:13 AM EDT Ainka Carolina, DAYSI Yes [facility] 11-18-2024 Are you blind, or do you have serious difficulty seeing, even when wearing glasses No 11/18/2024 10:13 AM EDT Anika Carolina, DAYSI No [facility] 11-18-2024 Do you have serious difficulty walking or climbing stairs Yes 11/18/2024 10:13 AM EDT Anika Carolina, DAYSI Yes [facility] 11-18-2024 Do you have difficul ty dressing or bathing Yes 11/18/2024 10:13 AM EDT Anika Carolina, DAYSI Yes [facility] 11-18-2024 Because of a physica l, mental, or emotional condition, do you have difficulty doing errands alone such as visiting a physician's office or shopping Yes 11/18/2024 10:13 AM Anika Andino, DAYSI Yes [facility] 11-11-2024 Functional status Bedpan [facility] Work Phone: 09-15-2024 Functional status Ambulates [facility] Work Phone: 09-02-2024 Functional status Bathroom Privilege [facility] Work Phone: Mental Status Date Assessment Result Facility 03-11-2025 Cognitive function Appropriate;F ollows Commands;[facility] Work Phone: 03-04-2025 Cognitive function Awake;Alert;Appropriat [facility] Work Phone: 02-27-2025 Cognitive function Voice/Name [facility] Work Phone: 02-17-2025 Cognitive function Voice/Name [facility] Work Phone: 02-16-2025 Cognitive function Alert;Appropr iate;Follow s Commands;[facility] Work Phone: 02-11-2025 Cognitive function Awake;Alert;Appropriat e [facility] Work Phone: 01-31-2025 Cognitive function Cooperative;A nxious;Talk ative [facility] Work Phone: 01-30-2025 Cognitive function Voice/Name [facility] Work Phone: 01-28-2025 Cognitive function Awake;Alert;A ppropriate; Follows Commands [facility] Work Phone: 01-21-2025 Cognitive function Voice/Name [facility] Work Phone: 01-05-2025 Cognitive function Voice/Name [facility] Work Phone: 01-02-2025 Cognitive function Awake;Alert;Appropriat e [facility] Work Phone: 12-30-2024 Cognitive function Awake;Alert;A ppropriate; Follows Commands [facility] Work Phone: 12-02-2024 Cognitive function Voice/Name [facility] Work Phone: 11-25-2024 Cognitive function Voice/Name [facility] Work Phone: 11-18-2024 Because of a physica l, mental, or emotional condition, do you have serious difficulty concentrating, remembering, or making decisions Yes 11/18/2024 10:13 AM Anika Andino RN Yes [facility] 11-10-2024 Cognitive function Voice/Name [facility] Work Phone: 09-29-2024 Cognitive function Awake;Alert;A ppropriate; Follows Commands [facility] Work Phone: 09-14-2024 Cognitive function Appropriate;Cooperativ e [facility] Work Phone: 09-14-2024 Cognitive function Voice/Name [facility] Work Phone: 09-02-2024 Cognitive function Voice/Name [facility] Work Phone: Clinical Notes 08-30-2024 to 03-30-2025 Note Date & Type Note Facility 03-30-2025 Note [facility] 03-11-2025 Discharge summary Note Date/Time March 11, 2025 10:05pm [facility] Medical Records Department [address] [place] [address] Emergency Department Summary 03/11/25 MR#: [id number] Acct: [id number] Name: FRANKLIN WIGGINS Rep #:[id number] : 1965 59 From: Alber Dunn MD PCP: Josy Elias, KINESIOLOGY PROFESSOR-C Status:REG E R Location: ED HPI <PAULETTE Roberts - Last Filed: 03/11/25 22:00> History [...] insulin but he doesnot know how much. PFSH <PAULETTE Roberts - Last Filed: 03/11/25 22:00> [facility] Medical History Diffuse abdominal pain Acute [...] Ox 100 Oxygen Delivery Method Room Air MDM <PAULETTE Roberts - Last Filed: 03/11/25 22:00> [facility] MDM Narrative Medical decision making narrative: Differential: Diabetic [...] 70.2 H Lymph % (Auto) 12.6 L Dade % (Auto) 10.9 H Eos % (Auto) [...] Dunn MD - Last Filed: 03/11/25 20:03> MDM MDM Narrative Medical decision making narrative: I have [...] 70.2 H Lymph % (Auto) 12.6 L Dade % (Auto) 10.9 H Eos % (Auto) [...] run high. Contact [facility]. Print Language: Estonian Disposition Disposition: Home, Self Care What to do if you have Problems For any increased pain, shortness of breath, bleeding, nausea or vomiting, chestpain, or any unexpected problems, contact your Primary Care Provider. Call [facility] ([phone]) or report to the closest Emergency Room. Call 911 if necessary. 03/11/252204 <Electronically signed by Alber Dunn MD> Cosigner Signature (if applicable): 03/11/252199 <Electronically signed by Day CALDWELL> CC: YG Elias ~ Signed [facility] Work Phone: 1(875) 558-284807-27-2025 [facility]07-17-2025 [facility]07-16-2025 Discharge summary Author Alber Dunn [facility] Note Date/Time February 16, 2025 6:39 pm [facility] Medical Records Department [address] [place] [address] Emergency Department Summary 02/16/25 MR#: [id number] Acct: [id number] Name: FRANKLIN WIGGINS Rep #:[id number] : [...] similar symptoms: Yes Recent Illness/Hospitalization: No PFSH [facility] Medical History VRE (vancomycin resistant enterococcus) [...] enzymes. Patient will be admitted to [facility]. History & Record Review Discussion w/independent historian: [...] diabetes mellitus Disposition Disposition: Acute Care Hospital [facility] What to do if you have Problems For any increased pain, shortness of breath, bleeding, nausea or vomiting, chestpain, or any unexpected problems, contact your Primary Care Provider. Call [facility] ([phone]) or report to the closest Emergency Room. Call 911 if necessary. 02/16/25 8422 <Electronically signed by Alber Dunn MD> Cosigner Signature (if applicable): CC: Dr. Jerald Sherwood MD ~ Signed [facility] Work Phone: 1(283) 246-768307-16-2025 Procedure [facility] 02-13-2025 Radiology Diagnostic study [facility]07-11-2025 Radiology Diagnostic study [facility]07-08-2025 Radiology Diagnostic study [facility]06-30-2025 Discharge summary Author Yaritza Leo [facility] Note Date/Time January 31, 2025 2:41 pm [facility] Medical Records Department [address] [address] Discharge Summary 01/31/25 1217 MR#: [id number] Acct: [id number] Name: FRANKLIN WIGGINS Rep #:[id number] : 1965 59 From: Yaritza Leo DO PCP: Dr. Jerald Sherwood MD Status:ADM I N Location: [address] Date of Admission: 01/28/25 Date of Discharge: [...] a 59-year-old male who presented from local care home facility to which she was discharged on [...] We did recommend he go back to [facility] however the patient was adamant he did [...] Final Vancomycin Resist. E. faecalis GNR lactose experimental technician 01/28/25 06:15 Blood Culture (Wb) - Anticubital [...] Self Care Charges/Coding Visit Charges Inpatient E&M: 18104 Disch Hosp >30min 01/31/25 1441 <Electronically signed by Yaritza Leo DO> Cosigner Signature (if applicable): CC: Dr. Yaritza Leo DO; Dr. Jerald Sherwood MD~ Signed [facility] Work Phone: 1(779) 198-952906-30-2025 [facility]06-30-2025 Hospital Discharge instructionsAdditional Instructions 1. Goal bowel movements with lactulose is 2-3 bowel movements daily. If you are having more than 3 bowel movements daily please decrease your lactulose from 3 times daily to 2 times daily 2. It is very important that you are compliant with your medications and utilize them as directed Date of Discharge: 01/31/25[facility] Work Phone: 1(511) 160-789906-29-2025 Progress note Author Yaritza Leo [facility] Note Date/Time January 30, 2025 1:37 pm [facility] Medical Records Department [address] [place] [address] Progress Note - Hospitalist 01/30/25 0728 MR#: [id number] Acct: [id number] Name: FRANKLIN WIGGINS Rep #:[id number] : 1965 59 From: Yaritza Leo DO PCP: Dr. Jerald Sherwood MD Status:ADM I N Location: [place] [address] Reason for Visit Reason for Visit: Fever [...] Neut % (Auto) 53.2, Lymph % (Auto) 20.0,Dade % (Auto) 18.5 H, Eos % (Auto) [...] Preliminary GPC Poss Enterococcus sp GNR lactose experimental technician 01/28/25 03:10 Mucosa - Nose SARS-CoV-2, Influenza [...] Full code Charges/Coding Visit Charges Inpatient E&M: 63554 Subs Hosp L2 01/30/25 1337 <Electronically signed by Yaritza Leo DO> Cosigner Signature (if applicable): CC: ~ Signed [facility] Work Phone: 1(774) 149-827206-28-2025 Progress note Author Yaritza Leo [facility] Note Date/Time January 29, 2025 5:59 pm [facility] Medical Records Department [address] [place] [address] Progress Note - Hospitalist 01/29/25 0754 MR#: [id number] Acct: [id number] Name: GEREMIASFRANKLIN CASEY Rep #:[id number] : 1965 59 From: Yaritza Leo DO PCP: Dr. Jerald Sherwood MD Status:ADM I N Location: [place] [address] Reason for Visit Reason for Visit: Fever [...] (Auto) 60.8, Lymph % (Auto) 17.1 L, Dade % (Auto) 15.2 H, Eos % (Auto) [...] Full code Charges/Coding Visit Charges Inpatient E&M: 48616 Subs Hosp L2 01/29/25 1659 <Electronically signed by Yaritza Leo DO> Cosigner Signature (if applicable): CC: ~ Signed [facility] Work Phone: 1(154) 145-551906-27-2025 History and physical note Author Boone Izquierdo [facility] Note Date/Time January 28, 2025 7:26 am [facility] Medical Records Department [address] [place] [address] H&P Exam - Hospitalist 01/28/25 0710 MR#: [id number] Acct: [id number] Name: FRANKLIN WIGGINS Rep #:[id number] : 1965 59 From: Boone Izquierdo DO PCP: Dr. Jerald Sherwood MD Status:REG E R Location: ED HPI - General General Date of Service: 01/28/25 Chief Complaint: Fever. HPI Narrative FRANKLIN WIGGINS, is a 59 M who [facility] with fever from the prison. This ashely 59-year-old male with cirrhosis presents with fever and confusion from the prison. In emergency room, he was afebrile but [...] in the emergencyroom without fluid resuscitation. [facility] Medical History (Updated 01/28/25 @ [...] (Auto) 57.8, Lymph % (Auto) 18.8 L, Dade % (Auto) 16.7 H, Eos % (Auto) [...] Clarity Cloudy, Urine pH 8.0, Ur Specific Nunda 1.015, Urine Protein 100 H, Urine Glucose [...] be continued. Charges/Coding Visit Charges Inpatient E&M: 42995 Init Hosp L3 01/28/25725 <Electronically signed by Boone Izquierdo DO> Cosigner Signature (if applicable): CC: Dr. Boone Izquierdo DO; Dr. Jerald Sherwood MD~ Signed [facility] Work Phone: 1(154) 368-797406-27-2025 History and physical note Author Boone Izquierdo [facility] Note Date/Time January 28, 2025 7:26 am [facility] Medical Records Department [address] [place] [address] H&P Exam - Hospitalist 01/28/25 0710 MR#: [id number] Acct: [id number] Name: GEREMIASFRANKLIN CASEY Rep #:[id number] : 1965 59 From: Boone Izquierdo DO PCP: Dr. Jerald Sherwood MD Status:REG E R Location: ED HPI - General General Date of Service: 01/28/25 Chief Complaint: Fever. HPI Narrative FRANKLIN WIGGINS, is a 59 M who presents with fever from the prison. This ashely 59-year-old male with cirrhosis presents with fever and confusion from the prison. In emergency room, he was afebrile but [...] in the emergencyroom without fluid resuscitation. [facility] Medical History (Updated 01/28/25 @ [...] (Auto) 57.8, Lymph % (Auto) 18.8 L, Dade % (Auto) 16.7 H, Eos % (Auto) [...] Clarity Cloudy, Urine pH 8.0, Ur Specific Nunda 1.015, Urine Protein 100 H, Urine Glucose [...] correlate for possible hepatic colopathy. Reading Location: [facility]2 Assessment & Plan Assessment/Plan (1) Hepatic encephalopathy: [...] be continued. Charges/Coding Visit Charges Inpatient E&M: 48488 Init Hosp L3 01/28/25 0726 <Electronically signed by Boone Izquierdo DO> Cosigner Signature (if applicable): CC: Dr. Boone Izquierdo DO; Dr. Jerald Sherwood MD~ Signed [facility] Work Phone: 1([phone]) 300-318106-27-2025 Discharge summary Author Danny Hutton [facility] Note Date/Time January 28, 2025 6:59 am [facility] Medical Records Department [address] [place] [address] Emergency Department Summary 01/28/25 MR#: [id number] Acct: [id number] Name: FRANKLIN WIGGINS Rep #:[id number] : 1965 59 From: Danny christy DO PCP: Dr. Jerald Sherwood MD Status:REG E R Location: ED HPI History of Present Illness Chief Complaint: Confusion Narrative Narrative: Chief complaint and HPI: Fever and confusion. 59-year-old male with past medical history DM2, ABBY, HTN, HLD, liver 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 presents from [place] for fever and confusion. History taken by [...] diarrhea, constipation, dysuria. I personally spoke with [facility] staff. The nurse is new to taking [...] Alert, grossly intact, sensation intact Psych: Cooperative [facility] Medical History Umbilical hernia Chronic hyponatremia [...] tablet (Xifaxan) 550 mg PO BID alisa horowitz #60 tabs 09/02/24 11/28/24 Rx acetaminophen 500 [...] liver 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 presents from [place] for fever and confusion. Patient is a poor historian therefore history taken by EMS as well as [place] nurse. Reported patient developed a fever of 101 ?F this evening prior to arrival. No meds were given. Nurse as well as myself does not know the patient's baseline mental status although nursing staff here that note is the patient states that wax and wanes. Nurse there states that multiple techs felt that the patient wasconfused at [place] and that he was asking about people [...] (Auto) 57.8 Lymph % (Auto) 18.8 L Dade % (Auto) 16.7 H Eos % (Auto) [...] Color Urine Clarity Urine pH Ur Specific Nunda Urine Protein Urine Glucose (UA) Urine Ketones Urine Occult Blood Urine Nitrite Urine Bilirubin Urine Urobilinogen Ur Leukocyte Esterase Urine RBC Urine WBC Ur Squamous Epith Cells Urine Bacteria Urine Mucus 01/28/25 01/28/25 04:33 04:58 WBC RBC Hgb Hct MCV MCH MCHC RDW Std Deviation RDW Coeff of Francis Plt Count MPV Immature Gran % (Auto) Neut % (Auto) Lymph % (Auto) Dade % (Auto) Eos % (Auto) Baso % [...] Clarity Cloudy Urine pH 8.0 Ur Specific Nunda 1.015 Urine Protein 100 H Urine Glucose [...] correlate for possible hepatic colopathy. [facility] Triage Chief Complaint: Confusion ED [...] MD [Primary Care Provider] - Print Language: Estonian What to do if you have Problems For any increased pain, shortness of breath, bleeding, nausea or vomiting, chestpain, or any unexpected problems, contact your Primary Care Provider. Call [facility] ([phone]) or report to the closest Emergency Room. Call 911 if necessary. 01/28/25 0659 <Electronically signed by Danny Hutton DO> Cosigner Signature (if applicable): CC: Dr. Jerald Sherwood MD ~ Signed [facility] Work Phone: 1(659) 931-824306-27-2025 Radiology Diagnostic study [facility]06-27-2025 Radiology Diagnostic study [facility]06-20-2025 Discharge summary Author Anurag Irene [facility] Note Date/Time January 21, 2025 11:1 2am [facility] Medical Records Department [address] [place] [address] Transfer to [facility] MR#: [id number] Acct: [id number] Name: FRANKLIN WIGGINS Rep #:[id number] : [...] SERVICES PRIOR TO HIS/HER TRANSFER TO THE COUNTS INCLUDE 234 BEDS AT THE [facility]. 01/21/25 1112<Electronically signed by Anurag Irene [...] (Auto) 63.5, Lymph % (Auto) 16.3 L, Dade % (Auto) 11.9 H, Eos % (Auto) [...] Instructions Additional Instructions / Restrictions: Follow-up in [facility] hepatology/GI. Discharge Orders/Prescriptions Prescriptions: New spironolactone [...] in before D/C Order can be placed): Alf Facility 01/21/25 1112 <Electronically signed by Anurag Irene MD> Cosigner Signature (if applicable): CC: YG Elias; Dr. Aleyda Bautista MD; Dr. Yaritza Leo DO; Dr. Cielo Tovar MD; Dr. Jefferson Malave MD ~ [facility] Work Phone: 1(276) [phone] Discharge summary Author Anurag Irene [facility] Note Date/Time January 21, 2025 1:29 pm [facility] Medical Records Department [address] [place] [address] Discharge Summary 01/21/25 1112 MR#: [id number] Acct: [id number] Name: FRANKLIN WIGGINS Rep #:[id number] : 1965 59 From: Anurag Lucero PCP: YG Pena Status:ADM I N Location: [place] [address] Providers Date of Admission: 01/09/25 Date of Discharge: 01/21/25 Primary Care Physician: YG Pena Consultations 01/09/25 15:46 Consult: Trailer Driver / Pulmonary Medicine Routine Consulting Provider: Intensivists/Pulmonary [...] (Auto) 63.5, Lymph % (Auto) 16.3 L, Dade % (Auto) 11.9 H, Eos % (Auto) [...] solution (Constulose) 15 ml PO TID PRN opxnrgghekjp77/27/25 L.acidophil,salivari-Bifido bifidum-Strep thermoph 175 mg capsule 1 [...] Provider: Anurag Irene Primary Care Provider: Josy Elais Consulting Providers: Yaritza Leo; Jefferson Malave; Aleyda Bautista; Cielo Tovar Instructions Additional Instructions / Restrictions: Follow-up in [facility] hepatology/GI. Discharge Orders/Prescriptions Prescriptions: New spironolactone [...] in before D/C Order can be placed): [facility] Facility Charges/Coding Visit Charges Inpatient E&M: 47397 Disch Hosp >30min 01/21/25 1117 <Electronically signed [...] Elias; Dr. Anurag Irene MD ~* Signed [facility] Work Phone: 1(197) 827-674506-20-2025 [facility]06-19-2025 Progress note Author Anurag Irene [facility] Note Date/Time January 20, 2025 2:40 pm [facility] Medical Records Department [address] [place] [address] Progress Note - Hospitalist 01/20/25 1436 MR#: [id number] Acct: [id number] Name: FRANKLIN WIGGINS Rep #:[id number] : 1965 59 From: Anurag Lucero PCP: YG Pena Status:ADM I N Location: [place] [address] Reason for Visit Reason for Visit: Diagnoses [...] (Auto) 63.5, Lymph % (Auto) 16.3 L, Dade % (Auto) 11.9 H, Eos % (Auto) [...] Catheter Urine Culture - Final Yeast, not Amry albicans Physical Exam Narrative Seen and examined [...] (Auto) 63.5, Lymph % (Auto) 16.3 L, Dade % (Auto) 11.9 H, Eos % (Auto) [...] 167 H Charges/Coding Visit Charges Inpatient E&M: 72195 Subs Hosp L2 01/20/25 1440 <Electronically signed by Anurag Irene MD> Cosigner Signature (if applicable): CC: ~ Signed [facility] Work Phone: 1(841) 173-374006-18-2025 Progress note Author Anurag Irene [facility] Note Date/Time January 19, 2025 4:46 pm [facility] Medical Records Department [address] [place] [address] Progress Note - Hospitalist 01/19/25918 MR#: [id number] Acct: [id number] Name: GEREMIASFRANKLIN Rep #:[id number] : 1965 59 From: Anurag Lucero PCP: YG Pena Status:ADM I N Location: [place] [address] Reason for Visit Reason for Visit: Diagnoses [...] WBCs % 75.6, Fluid Neutrophils 20, Fluid Pcczfebmdbw06, Fluid Monocytes 3, Fluid Macrophages 46, Fluid [...] (Auto) 67.7, Lymph % (Auto) 13.6 L, Dade % (Auto) 11.0 H, Eos % (Auto) [...] gas. Correlate with surgical history. Reading Location: [id number] Paracentesis Ultrasound 01/18/25 13:08 IMPRESSION: Right lower quadrant marker was applied for paracentesis with drain the fluid volume of 2650 cc. [facility] Narrative Seen and examined [...] WBCs % 75.6, Fluid Neutrophils 20, Fluid Dbeqaybxkvj05, Fluid Monocytes 3, Fluid Macrophages 46, Fluid [...] (Auto) 67.7, Lymph % (Auto) 13.6 L, Dade % (Auto) 11.0 H, Eos % (Auto) [...] 198 H Charges/Coding Visit Charges Inpatient E&M: 98882 Subs Hosp L2 01/19/25 1646 <Electronically signed by Anurag Irene MD> Cosigner Signature (if applicable): CC: ~ Signed [facility] Work Phone: 1(517) 785-670706-18-2025 Radiology Diagnostic study [facility]06-17-2025 Radiology Diagnostic study [facility]06-17-2025 Progress note Author Anurag Irene [facility] Note Date/Time January 18, 2025 1:14 pm [facility] Medical Records Department [address] [place] [address] Progress Note - Hospitalist 01/18/25 1302 MR#: [id number] Acct: [id number] Name: FRANKLIN WIGGINS Rep #:[id number] : 1965 59 From: Anurag Lucero PCP: YG Pena Status:ADM I N Location: [place] [address] Reason for Visit Reason for Visit: Diagnoses [...] (Auto) 68.1, Lymph % (Auto) 14.0 L, Dade % (Auto) 10.0, Eos % (Auto) 6.1 [...] prophylaxis: SCDs Charges/Coding Visit Charges Inpatient E&M: 16273 Subs Hosp L2 01/18/25 7854 <Electronically signed by Anurag Irene MD> Cosigner Signature (if applicable): CC: ~ Signed [facility] Work Phone: [phone] 348-870306-17-2025 Consult note Author Mohit Santos [facility] Note Date/Time January 18, 2025 12:4 9pm [facility] Medical Records Department [address] [place] [address] Pre-Anesthesia Evaluation 01/18/25 1246 MR#: [id number] Acct: [id number] Name: FRANKLIN WIGGINS Rep #:[id number] : 1965 59 From: Mohit Santos MD PCP: BRITTANY PenaC Status:ADM I N Y Race: C Location: [place] [address] 2-1 ASA Classification* ASA Classification ASA Classification: [...] 01/18/25 RBC 2.56 M/mm3 (4.6-6.2) L 01/18/25 05:21 01/18/25 Hgb 7.7 g/dL (13.0-16.5) L 01/18/25 05:21 01/18/25 Hct 22.6 % (40-54) L 01/18/25 05:21 01/18/25 Plt Count 107 K/mm3 (150-450) L 01/18/25 05:21 01/18/25 CHEMISTRY Potassium 2.8 mmol/L (3.3-5.1) L 01/18/25 05:21 01/18/25 Sodium 132 mmol/L (133-145) L 01/18/25 05:21 01/18/25 Magnesium 1.6 mg/dL (1.5-2.2) 01/18/25 05:21 01/18/25 Phosphorus 3.7 mg/dL (2.7-4.5) 01/18/25 05:21 01/18/25 BUN 8 mg/dL (4-19) 01/18/25 05:21 01/18/25 Creatinine 0.85 mg/dL (0.70-1.20) 01/18/25 05:01/18/25 Glucose 228 mg/dL (70-99) H 01/18/25 05:21 01/18/25 POC Glucose 142 mg/dL (74-106) H 01/18/25 11:30 01/18/25 TSH 0.826 uIU/mL (0.358-3.740) 09/04/24 23:07 0208/28 COAG PT 22.9 SECONDS (11.7-14.9) H 01/18/25 05:21 01/02 02/25 Pre-Assessment Diagnosis/Proposed Procedure Planned Operative Procedure(s): Lumbar steroid injection L1/L2 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 - 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: 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 - 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 Hx Hospitalization Any Problems With Anesthesia No [...] am of surgery tylenol PONV PONV - 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: PONV - 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 Female HX of Motion Sickness HX of N/V After Surgery Non-Smoker Duration of Surgery greater than 60 minutes Number of Risk Factors PONV Score Height & Weight Height & Weight: Anesthesia: Height & Weight Height 5 ft 9 in 01/17/25 14:51 Weight: 111.3 kg 01/18/25 08:57 Body Mass Index (BMI) 36.2 01/18/25 03:51 Respiratory Assessment Respiratory Assessment - 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: Respiratory Tract Infection Hx - 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 Hx Respiratory Tract Infection No 01/18/25 09:01 STOP Sleep Apnea STOP Sleep Apnea - 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: STOP Sleep Apnea - 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 Hx Hypertension No 01/10/25 10:46 Hx Sleep [...] Tobacco Use History Tobacco Use History - 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: Tobacco Use History - 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 Tobacco Use Smoking Status Former smoker 01/10/25 09:20 Hx Tobacco Use Yes 01/09/25 15:31 Years Smoking Packs Smoked per Day Smoking Cessation Date was Yes - quit smoking within 15 01/09/25 15:31 within the last 15 years years Hx Smoking Cessation Date 05/04/24 01/09/25 15:31 Hx Smoking Cessation Counseling Hematologic Medial History Hematologic Hx - 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: Hematologic Medical Hx - rough patcher Hx of Blood Transfusion No 01/09/25 15:31 Hx of Transfusion in last 3 No 01/09/25 15:31 Months Date of Last Transfusion (if within last 3 months) Ever experience any problems No 01/09/25 15:31 with transfusion(s)? Specify any problems Hx of Preganancy in last 3 N/A 01/09/25 15:31 Months Nurse Filling Out Transfusion RVIZZO 01/09/25 15:31 & Questions: Date: 01/09/25 01/09/25 15:31 Time: 15:37 06/08/25 15:31 Patient unable to answer at this time (ie. confused, unrespo /Reproduction History /Reproductive History - 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: /Reproductive Hx- 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 Hx Now No 01/18/25 09:01 Gestational Age [...] mls @ 15 mls/hr 01/09/25 15:34 IV .[id number] PRN Saline Flush Sodium Chloride 250 mls @ 15 mls/hr 01/09/25 15:34 IV .[id number] PRN Additional IVPB Infusion Sodium Chloride 1,000 mls @ 15 mls/hr 01/18/25 12:45 IV .Q48H [facility] Insulin Glargine 20 unit 01/09/25 22:00 01/17/25 21:05 Insulin Glargine-Yfgn 100 Unit/Ml Pen SC 20 unit QHS KRYSTIN Administration Insulin Glargine 20 unit 01/10/25 10:00 01/18/25 11:31 Insulin Glargine-Yfgn 100 Unit/Ml Pen SC Not Given DAILY [facility] Insulin Human Lispro 0 unit 01/09/25 16:00 01/18/25 11:33 Insulin Lispro 100 Unit/Ml Insuln.Pen SC Not Given ACHS [facility] Protocol Lactulose 10 gm 01/09/25 15:46 01/12/25 14:34 Lactulose 20 Gm/30 Ml Udc PO 10 gm TID PRN Administration constipation Magnesium Chloride 128 mg 01/10/25 10:00 01/18/25 11:31 Magnesium Chloride 64 Mg Delay Rel.Tablet PO Not Given DAILY [facility] Midodrine 10 mg 01/09/25 17:00 01/18/25 [...] Tablet PO Not Given DAILY [facility] Potassium Phos/Sodium Phos 1 packet 01/09/25 22:00 01/18/25 11:32 Na Biphos/Potassium Phosphate Packet PO Not Given BID KRYSTIN Rifaximin 550 mg 01/09/25 22:00 01/17/25 21:06 Rifaximin 550 Mg Tablet PO 550 mg BID KRYSTIN Administration Sodium Bicarbonate 650 mg 01/09/25 22:00 01/18/25 11:32 Sodium Bicarbonate 650 Mg Tablet PO Not Given BID [facility] Sodium Chloride 10 - 40 ml 01/09/25 15:34 01/18/25 08:33 0.9% Saline Lock 10 Ml Syringe IV 20 ml UD PRN Administration SALINE FLUSH Thiamine HCl 100 mg 01/10/25 10:00 01/18/25 11:32 Thiamine Hydrochloride 100 Mg Tablet PO Not Given DAILY [facility] Medical History (Updated 01/17/25 @ 16:52 by [...] MD Cosigner Signature: Date CC: ~ Signed [facility] Work Phone: 1(504) 688-456006-16-2025 Consult note Author Busetr Carmichael [facility] Note Date/Time January 17, 2025 4:57 pm [facility] Medical Records Department [address] [place] [address] Consultation 01/17/25 1522 MR#: [id number] Acct: [id number] Name: FRANKLIN WIGGINS Rep #:[id number] : 1965 59 From: Buster brewster MD PCP: Josy Elias NP-C Status:ADM I N Location: [place] [address] Assessment & Plan Assessment/Plan (1) Spinal stenosis, [...] 8- 10/10 in severity when moving. [facility] Medical History (Updated 01/17/25 @ [...] diarr ea #60 tabs 09/02/24 11/28/24 Rx acetaminophen [...] (Auto) 67.2, Lymph % (Auto) 12.9 L, Dade % (Auto) 11.5 H, Eos % (Auto) 6.8 H, Baso % (Auto) 0.5, Absolute Neuts (auto) 5.7, Absolute Lymphs (auto) 1.09, Nucleated RBC % 0 01/17/25 06:28: POC Glucose 173 H 01/17/25 11:26: POC Glucose 141 H 01/17/25 1657 <Electronically signed by Buster Carmichael MD> Cosigner Signature (if applicable): CC: YG Elias~ Signed [facility] Work Phone: 1(430) 553-288906-16-2025 Progress note Author Anurag Irene [facility] Note Date/Time January 17, 2025 2:32 pm [facility] Medical Records Department [address] [place] [address] Progress Note - Hospitalist 01/17/25 1420 MR#: [id number] Acct: [id number] Name: FRANKLIN WIGIGNS Rep #:[id number] : 1965 59 From: Anurag Lucero PCP: YG Pena Status:ADM I N Location: [place] [address] Reason for Visit Reason for Visit: Diagnoses [...] (Auto) 67.2, Lymph % (Auto) 12.9 L, Dade % (Auto) 11.5 H, Eos % (Auto) [...] prophylaxis: SCDs Charges/Coding Visit Charges Inpatient E&M: 85034 Subs Hosp L2 01/17/25 1432 <Electronically signed by Anurag Irene MD> Cosigner Signature (if applicable): CC: ~ Signed [facility] Work Phone: 1(525) 683-340506-16-2025 [facility]06-15-2025 Progress note Author Cielo Tovar [facility] Note Date/Time January 16, 2025 3:37 pm [facility] Medical Records Department [address] [place] [address] Progress Note 01/16/25 1236 MR#: [id number] Acct: [id number] Name: FRANKLIN WIGGINS Rep #:[id number] : 1965 59 From: iCelo Tovar MD PCP: YG Pena Status:ADM I N Location: [place] [address] Subjective Subjective Patient seen and examined. He [...] (Auto) 64.9, Lymph % (Auto) 14.6 L, Dade % (Auto) 12.7 H, Eos % (Auto) [...] at home. Charges/Coding Visit Charges Inpatient E&M: 32476 Subs Hosp L2 01/16/25 1537 <Electronically signed by Cielo Tovar MD> Cielo Tovar MD Cosigner Signature (if applicable): CC: ~ Signed [facility] Work Phone: [phone] 581-584506-14-2025 Consult note Author Buster Hahn [facility] Note Date/Time January 15, 2025 6:46 pm [facility] Medical Records Department [address] [place] [address] Pharmacokinetic/Renal -Consult 01/15/25 1846 MR#: [id number] Acct: [id number] Name: FRANKLIN WIGGINS Rep #:[id number] : 1965 59 From: Buster Lopes [facility] PCP: YG Pena Status:ADM I N Y Location: [place] [address] Consult Antibiotic Management Pharmacy has been consulted [...] at 0600) 01/15/25 1846 <Electronically signed by Bustre Nieves [facility]> Date _ Buster Hahn [facility] Cosigner Signature (if applicable): Date CC: ~ Signed [facility] Work Phone: 1(852) 658-332306-14-2025 Progress note Author Cielo Tovar [facility] Note Date/Time January 15, 2025 6:29 pm [facility] Medical Records Department [address] [address] Progress Note 01/15/25 1321 MR#: [id number] Acct: [id number] Name: FRANKLIN WIGGINS Rep #:[id number] : 1965 59 From: Cielo Tovar MD PCP: YG Pena Status:ADM I N Location: [place] [address] Subjective Subjective Patient seen and examined. He [...] (Auto) 65.6, Lymph % (Auto) 13.2 L, Dade % (Auto) 13.6 H, Eos % (Auto) [...] at multiple levels, as described. Reading Location: [place] [address] Physical Exam Const alert, oriented x3 and [...] at home. Charges/Coding Visit Charges Inpatient E&M: 79202 Subs Hosp L2 01/15/25 2672 <Electronically signed by Cielo Tovar MD> Cielo Tovar MD Cosigner Signature (if applicable): CC: ~ Signed [facility] Work Phone: [phone]) 839-164606-13-2025 Consult note Author Andreia Carvalho [facility] Note Date/Time January 14, 2025 8:04 pm [facility] Medical Records Department [address] [place] [address] Pharmacokinetic/Renal -Consult 01/14/252002 MR#: [id number] Acct: [id number] Name: FRANKLIN WIGGINS Rep #:[id number] : 1965 59 From: Andreia Carvalho PCP: YG Pena Status:ADM I N Y Location: [place] [address] Consult Antibiotic Management Pharmacy has been consulted [...] Signature (if applicable): Date CC: ~ Signed [facility] Work Phone: 1(185) 611-119206-13-2025 Progress note Author Cielo Tovar [facility] Note Date/Time January 14, 2025 5:19 pm [facility] Medical Records Department [address] [place] [address] Progress Note 01/14/25 1706 MR#: [id number] Acct: [id number] Name: FRANKLIN WIGGINS Rep #:[id number] : 1965 59 From: Cielo Tovar MD PCP: YG Pena Status:ADM I N Location: [place] [address] Subjective Subjective Patient seen and examined. He [...] (Auto) 65.3, Lymph % (Auto) 13.5 L, Dade % (Auto) 14.3 H, Eos % (Auto) [...] at multiple levels, as described. Reading Location: [place] [address] Thoracic Spine MRI 01/13/25 10:30 IMPRESSION: Abnormal marrow signal at T12 and L1. No acute compression deformity identified. Can not exclude metastatic involvement of these 2 vertebral bodies. Degenerative changes in the remainder of the lumbar spine. There is mild spinal stenosis at the level of T10-T11 and T11-T12. The patient could not tolerate postcontrast imaging. There is no cord compression Reading [facility] Chest CT 01/14/25 08:06 IMPRESSION: 1. Partially visualized severe degenerative changes of T11-T12 with areas of erosive changes and lytic lesions. Metastasis can not be excluded. 2. Cirrhosis and ascites. 3. Mild lung emphysema. No suspicious nodules or focal consolidation. Reading Location: [facility] Physical Exam Const alert, oriented x3 [...] medically stable. Charges/Coding Visit Charges Inpatient E&M: 48616 Subs Hosp L2 01/14/25 9699 <Electronically signed by Cielo Tovar MD> Cielo Tovar MD Cosigner Signature (if applicable): CC: ~ Signed [facility] Work Phone: [phone]) [phone] Radiology Diagnostic study [facility]06-12-2025 Progress note Author Cielo [facility] Note Date/Time January 13, 2025 6:28 pm [facility] Medical Records Department [address] [facility] [place] [address] Progress Note 01/13/25 1517 MR#: [id number] Acct: [id number] Name: FRANKLIN WIGGINS Rep #:[id number] : 1965 59 From: Cielo Tovar MD PCP: YG Pena Status:ADM I N Location: [place] [address] Subjective Subjective Patient seen and examined. He [...] (Auto) 65.6, Lymph % (Auto) 14.4 L, Dade % (Auto) 13.7 H, Eos % (Auto) [...] medically stable. Charges/Coding Visit Charges Inpatient E&M: 97398 Subs Hosp L2 01/13/250 <Electronically signed by Cielo Tovar MD> Cielo Tovar MD Cosigner Signature (if applicable): CC: ~ Signed [facility] Work Phone: [phone]) [phone] Consult note Author Francheska Montoya [facility] Note Date/Time January 13, 2025 9:36 am [facility] Medical Records Department [address] [place] [address] Pharmacokinetic/Renal -Consult 01/13/25 0934 MR#: [id number] Acct: [id number] Name: FRANKLIN WIGGINS Rep #:[id number] : 1965 59 From: Francheska Mcfarlane PCP: YG Pena Status:ADM I N Y Location: [place] [address] Consult Antibiotic Management Pharmacy has been consulted [...] on [date and time ordered]: 01/14/25 01/13/25 4775 <Electronically signed by Francheska Montoya> Date _ Francheska Clarkigner Signature (if applicable): Date CC: ~ Signed [facility] Work Phone: [phone] Progress note [facility] Note Date/Time January 12, 2025 4:51 pm [facility] Medical Records Department [address] [place] [address] Progress Note 01/12/25 1646 MR#: [id number] Acct: [id number] Name: FRANKLIN WIGGINS Rep #:[id number] : 1965 59 From: Cielo Tovar MD PCP: BRITTANY PenaC Status:ADM I N Location: [place] [address] Subjective Subjective Patient seen and examined. He [...] (Auto) 68.2, Lymph % (Auto) 11.6 L, Dade % (Auto) 12.1 H, Eos % (Auto) [...] his facility. Charges/Coding Visit Charges Inpatient E&M: 30200 Subs Hosp L2 01/12/25 7588 <Electronically signed by Cielo Tovar MD> Cielo Tovar MD Cosigner Signature (if applicable): CC: ~ Signed [facility] Work Phone: [phone]) 535-606806-11-2025 Consult note Author Dilcia Vanessa [facility] Note Date/Time January 11, 2025 10:4 8pm [facility] Medical Records Department [address] [place] [address] Pharmacokinetic/Renal -Consult 01/11/251942 MR#: [id number] Acct: [id number] Name: FRANKLIN WIGGINS Rep #:[id number] : 1965 59 From: Dilcia Vanessa PCP: Josy Elias KINESIOLOGY PROFESSOR-C Status:ADM I N Y Location: [place] [address] Consult Antibiotic Management Pharmacy has been consulted [...] by Dilcia Vargas ey> Date _ Dilcia Vanessa 01/11/258 <Electronically signed by Yaritza Lucero O> Cosigner Signature (if applicable): Date Yaritza Leo DO CC: ~ Signed [facility] Work Phone: [phone] 940-995706-10-2025 Progress note Author Cielo Tovar [facility] Note Date/Time January 11, 2025 5:51 pm [facility] Medical Records Department [address] [place] [address] Progress Note 01/11/25 1510 MR#: [id number] Acct: [id number] Name: FRANKLIN WIGGINS Rep #:[id number] : 1965 59 From: Cielo Tovar MD PCP: YG Pena Status:ADM I N Location: [place] [address] Subjective Subjective Patient seen and examined. He [...] % (Auto) Cancelled, Lymph % (Auto) Cancelled, Dade % (Auto) Cancelled, Eos % (Auto) Cancelled, [...] Cells Cancelled, Ovalocytes Cancelled, Stomatocytes Cancelled, [place] Bodies Cancelled, Pal[place] Cells Cancelled, Bite Cells [...] (Auto) 69.6, Lymph % (Auto) 12.6 L, Dade % (Auto) 11.8 H, Eos % (Auto) [...] of anemia Charges/Coding Visit Charges Inpatient E&M: 01852 Subs Hosp L2 01/11/25 1751 <Electronically signed by Cielo Tovar MD> Cielo Tovar MD Cosigner Signature (if applicable): CC: ~ Signed [facility] Work Phone: [phone]) 801-572606-10-2025 Consult note Author Jefferson Malave [facility] Note Date/Time January 11, 2025 4:41 pm [facility] Medical Records Department [address] [place] [address] Consultation - Surgical 01/11/25 1634 MR#: [id number] Acct: [id number] Name: FRANKLIN WIGGINS Rep #:[id number] : 1965 59 From: Jefferson Malave MD PCP: YG Pena Status:ADM I N Location: [place] [id number] Assessment & Plan Assessment/Plan (1) Umbilical hernia: [...] on CT consistent with portal hypertension. [facility] Medical History (Updated 01/11/25 @ [...] % (Auto) Cancelled, Lymph % (Auto) Cancelled, Dade % (Auto) Cancelled, Eos % (Auto) Cancelled, [...] Cells Cancelled, Ovalocytes Cancelled, Stomatocytes Cancelled, [place] Bodies Cancelled, Paloma Cells Cancelled, Bite Cells [...] (Auto) 69.6, Lymph % (Auto) 12.6 L, Dade % (Auto) 11.8 H, Eos % (Auto) [...] 48 hours. Charges/Coding Visit Charges Inpatient E&M: 39245 Init Hosp L3 01/11/25 1641 <Electronically signed by Jefferson Malave MD> Cosigner Signature (if applicable): CC: YG Elias~ Signed [facility] Work Phone: [phone] 156-962406-10-2025 Progress note Author Bola Meraz [facility] Note Date/Time January 11, 2025 9:07 am [facility] Medical Records Department [address] [place] [address] Progress Note - Trailer Driver 01/11/25 0722 MR#: [id number] Acct: [id number] Name: FRANKLIN WIGGINS Rep #:[id number] : 1965 59 From: Bola Meraz DO PCP: Josy Elias NP-Pastora Status:ADM I N Location: ICU CVICU20 1-1 [...] scheduled midodrine. This note was generated with [employer] dictation software. It may contain incorrectwords, spelling, [...] % (Auto) Cancelled, Lymph % (Auto) Cancelled, Dade % (Auto) Cancelled, Eos % (Auto) Cancelled, [...] Cells Cancelled, Ovalocytes Cancelled, Stomatocytes Cancelled, [place] Bodies Cancelled, [place] Cells Cancelled, Bite Cells Cancelled, Crenated Cell [...] (Auto) 69.6, Lymph % (Auto) 12.6 L, Dade % (Auto) 11.8 H, Eos % (Auto) [...] hypertension. No liver masses identified. Reading Location: [facility] Physical Exam Const alert, oriented x3 and [...] flat affect Charges/Coding Visit Charges Inpatient E&M: 67769 Subs Hosp L2 01/11/25 0907 <Electronically signed by Bola Meraz DO> Cosigner Signature (if applicable): CC: ~ Signed [facility] Work Phone: [phone] Consult note Author Boone Garcia [facility] Note Date/Time January 11, 2025 2:14 am [facility] Medical Records Department [address] [place] [address] Pharmacokinetic/Renal -Consult 01/11/25 0211 MR#: [id number] Acct: [id number] Name: FRANKLIN WIGGINS Rep #:[id number] : 1965 59 From: Boone Garcia PCP: Josy Elias KINESIOLOGY PROFESSOR-Pastora Status:ADM I N Y Location: ICU CVICU20 [...] Signature (if applicable): Date CC: ~ Signed [facility] Work Phone: [phone]) 559-732706-09-2025 Progress note Author Cielo [facility] Note Date/Time January 10, 2025 6:23p [facility] Medical Records Department [address] [place] [address] Progress Note 01/10/251815 MR#: [id number] Acct: [id number] Name: FRANKLIN WIGGINS Rep #:[id number] : 1965 59 From: Cielo Tovar MD PCP: YG Pena Status:ADM I N [facility] Subjective Subjective Patient seen and examined. He [...] % (Auto) Cancelled, Lymph % (Auto) Cancelled, Dade % (Auto) Cancelled, Eos % (Auto) Cancelled, [...] Cells Cancelled, Ovalocytes Cancelled, Stomatocytes Cancelled, [place] Bodies Cancelled, [place] Cells Cancelled, Bite Cells Cancelled, Crenated Cell [...] 76.1 H, Lymph % (Auto) 8.8 L, Dade % (Auto) 8.2, Eos % (Auto) 5.9 [...] prophylaxis: Heparin Charges/Coding Visit Charges Inpatient E&M: 90452 [facility] Hosp L3 01/10/25 1823 <Electronically signed by Cielo Tovar MD> Cielo Tovar MD Cosigner Signature (if applicable): CC: ~ Signed [facility] Work Phone: [phone] Progress note Author Bola Meraz [facility] Note Date/Time January 10, 2025 8:52a m [facility] Medical Records Department [address] [place] [address] Progress Note - Trailer Driver 01/10/25 0700 MR#: [id number] Acct: [id number] Name: FRANKLIN WIGGINS Rep #:[id number] : [...] scheduled midodrine. This note was generated with [employer] dictation software. It may contain incorrectwords, spelling, [...] 80.6 H, Lymph % (Auto) 7.2 L, Dade % (Auto) 6.7, Eos % (Auto) 4.2, [...] % (Auto) Cancelled, Lymph % (Auto) Cancelled, Dade % (Auto) Cancelled, Eos % (Auto) Cancelled, [...] Cells Cancelled, Ovalocytes Cancelled, Stomatocytes Cancelled, [place] Bodies Cancelled, [place] Cells Cancelled, Bite Cells Cancelled, Crenated Cell [...] 76.1 H, Lymph % (Auto) 8.8 L, Dade % (Auto) 8.2, Eos % (Auto) 5.9 [...] hypertension. No liver masses identified. Reading Location: [facility] Physical Exam Const alert, oriented x3 and [...] flat affect Charges/Coding Visit Charges Inpatient E&M: 59515 Subs Hosp L3 01/10/25 0852 <Electronically signed by Bola Meraz DO> Cosigner Signature (if applicable): CC: ~ Signed [facility] Work Phone: [phone] Consult note Author Lupillo Robbins [facility] Note Date/Time January 09, 2025 8:03p m [facility] Medical Records Department [address] [place] [address] Consultation - Trailer Driver 01/09/25 1836 MR#: [id number] Acct: [id number] Name: FRANKLIN WIGGINS Rep #:[id number] : 1965 59 From: Lupillo Robbins MD PCP: Josy Tannhof, KINESIOLOGY PROFESSOR-C Status:ADM I N Location: ICU CVICU20 1-1 [...] 325 Mg Tablet PO Q48@1200 [facility] Folic Acid 1 mg 01/10/25 08:00 Folic Acid 1 Mg Tablet PO BREAKFAST KRYSTIN Guaifenesin 10 ml 01/09/25 15:46 Guaifenesin 10 Ml Udc (200mg/10ml) PO Q4H PRN PRN COUGH Heparin Sodium (Porcine) 5,000 unit 01/09/25 22:00 Heparin Injection (Vial) 5,000 Unit/Ml Vial SC Q8 [facility] Sodium Chloride 250 mls @ 15 mls/hr 01/09/25 15:34 IV .[id number] PRN Saline Flush Sodium Chloride 250 mls @ 15 mls/hr 01/09/25 15:34 IV .[id number] PRN Additional IVPB Infusion Norepinephrine Bitartrate 8 mg 250 mls @ 9.375 mls/hr 01/09/25 15:46 01/09/2515:56 / Sodium Chloride CONT INF Not Given .[id number] [facility] Protocol 5 MCG/MIN Vancomycin IV-PHARMACY TO DOSE 500 mls @ 250 mls/hr 01/09/25 15:46 1 each/ Sodium Chloride IV PRN PRN Rx to Dose Protocol Meropenem 1 gm/ Sodium 120 mls @ 33 mls/hr 01/09/25 22:00 Chloride IV Q12 KRYSTIN Vancomycin HCl 1,000 mg in 200 mls @ 200 mls/hr 01/10/25 02:00 Vancomycin IV Q12H [facility] Insulin Glargine 20 unit 01/09/25 22:00 Insulin Glargine-Yfgn 100 Unit/Ml Pen SC QHS [facility] Insulin Glargine 20 unit 01/10/25 10:00 Insulin Glargine-Yfgn 100 Unit/Ml Pen SC DAILY [facility] Insulin Human Lispro 0 unit 01/09/25 16:00 01/09/25 16:27 Insulin Lispro 100 Unit/Ml Insuln.Pen SC Not Given ACHS [facility] Protocol Lactulose 10 gm 01/09/25 15:46 Lactulose 20 Gm/30 Ml Udc PO TID PRN constipation Magnesium Chloride 128 mg 01/10/25 10:00 Magnesium Chloride 64 Mg Delay Rel.Tablet PO DAILY [facility] Midodrine 10 mg 01/09/25 17:00 01/09/25 17:10 Midodrine Hcl 5 Mg Tablet PO 10 mg TIDCM [facility] Administration Ondansetron HCl 4 mg 01/09/25 15:46 Ondansetron 4 Mg/2 Ml Vial IV Q8H PRN PRN NAUSEA/VOMITING Pantoprazole Sodium 20 mg 01/10/25 10:00 Pantoprazole Sodium 20 Mg Tablet PO DAILY [facility] Potassium Phos/Sodium Phos 1 packet 01/09/25 22:00 Na Biphos/Potassium Phosphate Packet PO BID [facility] Rifaximin 550 mg 01/09/25 22:00 Rifaximin 550 Mg Tablet PO BID [facility] Sodium Bicarbonate 650 mg 01/09/25 22:00 Sodium Bicarbonate 650 Mg Tablet PO BID [facility] Sodium Chloride 10 - 40 ml 01/09/25 15:34 0.9% Saline Lock 10 Ml Syringe IV UD PRN SALINE FLUSH Thiamine HCl 100 mg 01/10/25 10:00 Thiamine Hydrochloride 100 Mg Tablet PO DAILY [facility] Vancomycin Protocol 1 lab 01/11/25 00:30 Vancomycin Trough/Random Due MC 01/11/25 02:30 DAILY [facility] Zinc Sulfate 50 mg 01/10/25 10:00 Zinc Sulfate 50 Mg Zinc (220 Mg) Oral Capsule PO DAILY [facility] Lab / Micro Data 01/09/25 10:40 [...] 80.6 H, Lymph % (Auto) 7.2 L, Dade % (Auto) 6.7, Eos % (Auto) 4.2, [...] hypertension. No liver masses identified. Reading Location: [facility] Assessment and Plan . Assessment and plan: [...] Robbins MD> Cosigner Signature (if applicable): CC: KINESIOLOGY PROFESSOR-Pastora Elias~ Signed [facility] Work Phone: [phone]) [phone] Consult note Author Peter Carvajal [facility] Note Date/Time January 09, 2025 5:42p [facility] Medical Records Department [address] [place] [address] Pharmacokinetic/Renal -Consult 01/09/25 1602 MR#: [id number] Acct: [id number] Name: FRANKLIN WIGGINS Rep #:[id number] : [...] Date Yaritza Leo DO CC: ~ Signed [facility] Work Phone: [phone]) 444-722906-08-2025 History and physical note Author Yaritza Leo [facility] Note Date/Time January 09, 2025 5:41p m [facility] Medical Records Department [address] [place] [address] H&P Exam - Hospitalist 01/09/25 1408 MR#: [id number] Acct: [id number] Name: FRANKLIN WIGGINS Rep #:[id number] : 1965 59 From: Yaritza Leo DO PCP: YG Pena Status:ADM I N Location: ICU CVICU20 1-1 HPI - General General Date of Admission: 01/09/25 Date of Service: 01/09/25 Chief Complaint: Suprapubic abdominal pain HPI Narrative FRANKLIN WIGGINS, is a 59 M who presented to the emergency department [facility] on 01/09/2025 due to back pain and [...] medical history and currently resides at an [facility]S [facility] 234 BEDS AT [facility]. He denies any fever or chills. [...] a repeat of 89/59 and pulse ox buc578% on room air. CBC showed a leukocytosis [...] was treated with 30 cc/kg bolus. [facility] Medical History (Updated 01/09/25 @ [...] 80.6 H, Lymph % (Auto) 7.2 L, Dade % (Auto) 6.7, Eos % (Auto) 4.2, [...] liver masses identified. Reading [facility] Assessment & Plan Assessment/Plan (1) Sepsis: (2) [...] currently 102/60) Charges/Coding Visit Charges Inpatient E&M: 32820 Init Hosp L3 01/09/25 1741 <Electronically signed by Yaritza Leo DO> Cosigner Signature (if applicable): CC: YG Elias; Dr. Yaritza Leo DO~ Signed [facility] Work Phone: [phone]) [phone] Discharge summary Author Breann Mendez [facility] Note Date/Time January 09, 2025 4:26p m [facility] Medical Records Department [address] [facility] [place] [address] Emergency Department Summary 01/09/25 MR#: [id number] Acct: [id number] Name: FRANKLIN WIGGINS Rep #:[id number] : 1965 59 From: Breann Mendez DO PCP: BRITTANY PenaC Status:ADM I N Location: ICU CVICU20 1-1 [...] denies urinary symptoms. Patient is from a prison and normally ambulates with a walker. Patient has history of cirrhosis and history of diabetes as well as high cholesterol. Patient has had prior paracentesis. Currently rates his pain about a 5 out of 10. He does not want thing for pain currently. [facility] Medical History Weakness Diarrhea Sepsis Acidosis, [...] mg tablet 40 mg PO DAILY diuretic 04/11/28/24 History magnesium oxide 400 mg (241.3 mg [...] 80.6 H Lymph % (Auto) 7.2 L Dade % (Auto) 6.7 Eos % (Auto) 4.2 [...] Clarity Turbid Urine pH 6.0 Ur Specific Nunda 1.015 Urine Protein 500 H Urine Glucose [...] liver masses identified. Reading Location[facility] Critical Care Time Critical care time (excluding procedures): 30-74 minutes, Including time spent:,Discussing w/Patient &/or Family/Adolescent Counselor, Discussing w/Consultants, ArrangingAdmission or Transfer, Performing Direct [...] NP-C [Primary Care Provider] - Print Language: Estonian Disposition Disposition: Acute Care Hospital [facility] What to do if you have Problems For any increased pain, shortness of breath, bleeding, nausea or vomiting, chestpain, or any unexpected problems, contact your Primary Care Provider. Call [facility] ([phone]) or report to the closest Emergency Room. Call 911 if necessary. 01/09/25 1626 <Electronically signed by Breann Mendez DO> Cosigner Signature (if applicable): CC: YG Elias ~ Signed [facility] Work Phone: 1(771) 445-922806-08-2025 Radiology Diagnostic study [facility]06-04-2025 Consult note Author Kourtney Reece [facility] Note Date/Time January 05, 2025 5:01p m [facility] Medical Records Department [address] [place] [address] Counseling Note - Pharmacy 01/05/25 1447 MR#: [id number] Acct: [id number] Name: FRANKLIN WIGGINS Rep #:[id number] : 1965 59 From: Kourtney Reece PCP: YG Pena Status:ADM I N Y Location: [place] [address] [place]acy [place] Med Reconciliation Pharmacy Service has performed discharge [...] solution (Constulose) 15 ml PO TID PRN sisnahslezxe47/27/25 L.acidophil,salivari-Bifido bifidum-Strep thermoph 175 mg capsule 1 [...] Signature (if applicable): Date CC: ~ Signed [facility] Work Phone: 1(273) 132-715006-04-2025 Discharge summary Author Hill Acuña [facility] Note Date/Time January 05, 2025 2:07p [facility] Medical Records Department [address] [facility] [place] [address] Discharge Summary 01/05/25 1404 MR#: [id number] Acct: [id number] Name: FRANKLIN WIGGINS Rep #:[id number] : 1965 59 From: Hill Acuña MD PCP: YG Pena Status:ADM I N Location: [address] 1 Providers Date of Admission: 01/02/25 Date of [...] Secondary to multiple medical comorbidities. Transfer to care home facility had been recommended to patient during previous hospitalization he did decline. I had a discussion with patient he is amenable to entertaining the idea of going to care home facility. Subsequently requested for PT OT eval and transition social worker to assist with discharge planning ? 01/03/2025; plan is to discuss with case management regarding disposition ? 01/05/2025; awaiting insurance pre-CERT prior to transfer to care home facility ? Patient was discharged to care home facility once insurance. 2. Severe hypokalemia ? [...] solution (Constulose) 15 ml PO TID PRN vqkifehejybj73/27/25 L.acidophil,salivari-Bifido bifidum-Strep thermoph 175 mg capsule 1 [...] (Auto) 69.1, Lymph % (Auto) 13.4 L, Dade % (Auto) 11.6 H, Eos % (Auto) [...] in before D/C Order can be placed): Alf Facility Charges/Coding Visit Charges Inpatient E&M: 16457 Disch Hosp >30min 01/05/25 1407 <Electronically signed by Hill Acuña MD> Cosigner Signature (if applicable): CC: YG Elias; Dr. Hill Acuña MD~ Signed [facility] Work Phone: 1(355) 993-481006-04-2025 Discharge summary Author Hill Acuña [facility] Note Date/Time January 05, 2025 2:04p m [facility] Medical Records Department [address] [place] [address] Transfer to Extended Care MR#: [id number] Acct: [id number] Name: FRANKLIN WIGGINS Rep #:[id number] : [...] Secondary to multiple medical comorbidities. Transfer to care home facility had been recommended to patient during previous hospitalization he did decline. I had a discussion with patient he is amenable to entertaining the idea of going to care home facility. Subsequently requested for PT OT eval and transition social worker to assist with discharge planning ? 01/03/2025; plan is to discuss with case management regarding disposition ? 01/05/2025; awaiting insurance pre-CERT prior to transfer to care home facility 2. Severe hypokalemia ? Patient potassium [...] in before D/C Order can be placed): [facility] 01/05/25 1404 <Electronically signed by Hill Acuña MD> Cosigner Signature (if applicable): CC: YG Elias; Dr. Buster Fuchs MD ~ [facility] Work Phone: 1([phone]) 292-416006-04-2025 Progress note Author Hill Acuña [facility] Note Date/Time January 05, 2025 11:01 am [facility] Medical Records Department [address] [place] [address] Progress Note - Hospitalist 01/05/25 0737 MR#: [id number] Acct: [id number] Name: FRANKLIN WIGGINS Rep #:[id number] : 1965 59 From: Hill Acuña MD PCP: YG Pena Status:ADM I N Location: [place] [address] Reason for Visit Reason for Visit: Diagnoses Acute kidney failure, unspecified (01/02/25) Unspecified fall, initial encounter (01/02/25) Subjective Subjective Patient seen blood glucose control not optimal further adjustment made to patient insulin regimen. Patient awaiting insurance precertification prior to transfer to care home facility Objective Data Objective Data Vital Signs: [...] (Auto) 69.1, Lymph % (Auto) 13.4 L, Dade % (Auto) 11.6 H, Eos % (Auto) [...] Secondary to multiple medical comorbidities. Transfer to care home facility had been recommended to patient during previous hospitalization he did decline. I had a discussion with patient he is amenable to entertaining the idea of going to care home facility. Subsequently requested for PT OT eval and transition social worker to assist with discharge planning ? 01/03/2025; plan is to discuss with case management regarding disposition ? 01/05/2025; awaiting insurance pre-CERT prior to transfer to care home facility 2. Severe hypokalemia ? Patient potassium [...] SCDs for Charges/Coding Visit Charges Inpatient E&M: 92774 Subs Hosp L2 01/05/25 1101 <Electronically signed by Hill Acuña MD> Cosigner Signature (if applicable): CC: ~ Signed [facility] Work Phone: 1(469) 311-504806-03-2025 Progress note Author Hill Acuña [facility] Note Date/Time January 04, 2025 10:18 am [facility] Medical Records Department [address] [place] [address] Progress Note - Hospitalist 01/04/25 1014 MR#: [id number] Acct: [id number] Name: FRANKLIN WIGGINS Rep #:[id number] : 1965 59 From: Hill Acuña MD PCP: YG Pena Status:ADM I N Location: [place] [address] Reason for Visit Reason for Visit: Diagnoses [...] Secondary to multiple medical comorbidities. Transfer to care home facility had been recommended to patient during previous hospitalization he did decline. I had a discussion with patient he is amenable to entertaining the idea of going to care home facility. Subsequently requested for PT OT eval [...] SCDs for Charges/Coding Visit Charges Inpatient E&M: 89173 Subs Hosp L2 01/04/25 1018 <Electronically signed by Hill Acuña MD> Cosigner Signature (if applicable): CC: ~ Signed [facility] Work Phone: 1(272) 875-613006-02-2025 Progress note Author Hill Acuña [facility] Note Date/Time January 03, 2025 9:52a [facility] Medical Records Department [address] [place] [address] Progress Note - Hospitalist 01/03/25 0839 MR#: [id number] Acct: [id number] Name: FRANKLIN WIGGINS Rep #:[id number] : 1965 59 From: Hill Acuña MD PCP: YG Pena Status:ADM I N Location: [place] [address] Reason for Visit Reason for Visit: Diagnoses [...] (Auto) 67.5, Lymph % (Auto) 13.9 L, Dade % (Auto) 11.5 H, Eos % (Auto) [...] Secondary to multiple medical comorbidities. Transfer to care home facility had been recommended to patient during previous hospitalization he did decline. I had a discussion with patient he is amenable to entertaining the idea of going to care home facility. Subsequently requested for PT OT eval [...] SCDs for Charges/Coding Visit Charges Inpatient E&M: 62166 Subs Hosp L2 01/03/25 0952 <Electronically signed by Hill Acuña MD> Cosigner Signature (if applicable): CC: ~ Signed [facility] Work Phone: 1([phone]) 830-966806-01-2025 Progress note Author Hill Glasskarma [facility] Note Date/Time January 02, 2025 9:58a m [facility] Medical Records Department [address] [place] [address] Progress Note - Hospitalist 01/02/25 0736 MR#: [id number] Acct: [id number] Name: FRANKLIN WIGGINS Rep #:[id number] : 1965 59 From: Hill Acuña MD PCP: GY Pena Status:ADM I N Location: [place] [address] Reason for Visit Reason for Visit: Diagnoses Acute kidney failure, unspecified (01/02/25) Unspecified fall, initial encounter (01/02/25) Subjective Subjective Patient is a 59-year-old gentleman with recent multiple hospitalization presented to the emergency department with progressive generalized weakness and vomiting. This was apparently his third visit to the ED within a week. Patienthad been encouraged to be discharged to a care home facility he however declined. Objective Data Objective [...] (Auto) 68.0, Lymph % (Auto) 12.2 L, Dade % (Auto) 11.9 H, Eos % (Auto) [...] insufficiency fracture again noted, unchanged. Reading Location: [facility] Brain CT 01/02/25 03:55 IMPRESSION: No intracranial hemorrhage, mass effect or calvarial fracture. Moderate volume loss, atrophy again noted. Mild left maxillary sinus disease appears mildly decreased from the prior study. Reading Location: [facility] Cervical Spine CT 01/02/25 03:55 IMPRESSION: No fracture or malalignment. Multilevel spondylosis/discogenic change greatest at C5-6 Reading Location: [facility] Physical Exam Narrative GENERAL: cooperative HEENT: [...] Secondary to multiple medical comorbidities. Transfer to care home facility had been recommended to patient during previous hospitalization he did decline. I had a discussion with patient he is amenable to entertaining the idea of going to care home facility. Subsequently requested for PT OT eval [...] documentation, 38Minutes Charges/Coding Visit Charges Inpatient E&M: 04090 PROLNG IP/OBS E/M EA 15 MIN Multi Select Codes Visit Charges Visit Charges: 57752 PROLNG IP/OBS E/M EA 15 MIN 01/02/25 0921 <Electronically signed by Hill Acuña MD> Cosigner Signature (if applicable): CC: ~ Signed [facility] Work Phone: 1(167) 551-752606-01-2025 History and physical note Author Buster Fuchs [facility] Note Date/Time January 02, 2025 6:44a m [facility] Medical Records Department [address] [place] [address] H&P Exam - Hospitalist 01/02/25 0556 MR#: [id number] Acct: [id number] Name: FRANKLIN WIGGINS Rep #:[id number] : 1965 59 From: Buster duarte MD PCP: BRITTANY PenaC Status:ADM I N Location: [address] 1 HPI - General General Date [...] that time he was transferred to [facility] 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 Was not considered to be a liver transplant candidate and was placed on anticoagulation. He has had a couple of readmissions for weakness and debility. [place] to possibly have aUTI given a staghorn [...] receiving potassium infusion in the ER. [facility] Medical History Weakness Diarrhea Sepsis [...] (Auto) 68.0, Lymph % (Auto) 12.2 L, Dade % (Auto) 11.9 H, Eos % (Auto) [...] insufficiency fracture again noted, unchanged. Reading Location: [facility] Brain CT 01/02/25 03:55 IMPRESSION: No intracranial hemorrhage, mass effect or calvarial fracture. Moderate volume loss, atrophy again noted. Mild left maxillary sinus disease appears mildly decreased from the prior study. Reading Location: [facility] Cervical Spine CT 01/02/25 03:55 IMPRESSION: No fracture or malalignment. Multilevel spondylosis/discogenic change greatest at C5-6 Reading Location: [facility] Assessment & Plan Assessment/Plan (1) Fall: [...] once verified Charges/Coding Visit Charges Inpatient E&M: 16057 Init Hosp L2 01/02/25 0644 <Electronically signed by Buster Fuchs MD> Cosigner Signature (if applicable): CC: YG Elias; Dr. Buster Fuchs MD~ Signed [facility] Work Phone: 1([phone]) 467-150306-01-2025 Discharge summary Author Roddy Reeves [facility] Note Date/Time January 02, 2025 6:00a m [facility] Medical Records Department [address] [place] [address] Emergency Department Summary 01/02/25 MR#: [id number] Acct: [id number] Name: FRANKLIN WIGGINS Rep #:[id number] : [...] was here recently and was sent home. [facility] Medical History Weakness Diarrhea Sepsis Acidosis, [...] mg tablet (Xifaxan) 550 mg PO BID [facility] ea #60 tabs 09/02/24 11/28/24 Rx insulin [...] Patient following commands that [facility] at [facility] that wewere in the end [...] (Auto) 68.0 Lymph % (Auto) 12.2 L Dade % (Auto) 11.9 H Eos % (Auto) [...] Clarity Turbid Urine pH 6.0 Ur Specific Nunda 1.015 Urine Protein 100 H Urine Glucose [...] insufficiency fracture again noted, unchanged. Reading Location: [facility] Brain CT 01/02/25 03:55 IMPRESSION: No intracranial hemorrhage, mass effect or calvarial fracture. Moderate volume loss, atrophy again noted. Mild left maxillary sinus disease appears mildly decreased from the prior study. Reading Location: [facility] Cervical Spine CT 01/02/25 03:55 IMPRESSION: No fracture or malalignment. Multilevel spondylosis/discogenic change greatest at C5-6 Reading Location: [facility] Discharge Plan Triage Chief Complaint: Weakness [...] NP-C [Primary Care Provider] - Print Language: Estonian Disposition Disposition: Acute Care Hospital [facility] What to do if you have Problems For any increased pain, shortness of breath, bleeding, nausea or vomiting, chestpain, or any unexpected problems, contact your Primary Care Provider. Call [facility] ([phone]) or report to the closest Emergency Room. Call 911 if necessary. 01/02/25 06 <Electronically signed by Roddy Reeves DO> Cosigner Signature (if applicable): CC: YG Elias ~ Signed [facility] Work Phone: 1(722) 935-995806-01-2025 Radiology Diagnostic study [facility]06-01-2025 Radiology Diagnostic study [facility]06-01-2025 Radiology Diagnostic study [facility] 12-30-2024 Radiology Diagnostic study [facility]05-25-2025 Radiology Diagnostic study [facility]05-14-2025 Radiology Diagnostic study [facility]04-20-2025 Radiology Diagnostic study [facility]04-17-2025 Telephone encounter Note* Telephone Encounter - Charlottevita MarahJANETTE ram - 11/18/2024 2:24 PM EDT JEANNINE received [...] scheduled to follow up with [facility] Electric Shaver Mechanic. JEANNINE asked that Dr. Mosley inform this pt that he can return to our transplant center again and be re-evaluated once he has addressed his prohibitive psychosocial concerns (lack of caregivers, unstable housing, unstable finances, unreliable transportation). Dr. Mosley agreed to do so. [facility] Work Phone: 1(262) [phone] Miscellaneous Notes* Telephone Encounter - Marah Arauz [...] be scheduled to follow up with F Electric Shaver Mechanic. JEANNINE asked that Dr. Mosley inform this pt that he can return to our transplant center again and be re-evaluated once he has addressed his prohibitive psychosocial concerns (lack of caregivers, unstable housing, unstable finances, unreliable transportation). Dr. Mosley agreed to do so. documented in this encounterMary [facility]04-17-2025 Telephone encounter Note * Telephone Encounter - Jeremi Abreu RN - 11/18/2024 10:01 AM EDT Inpatient hepatology team spoke with Franklinkarma Wiggins to advise him that his case was discussedat liver transplant selection committee on 11/17/2024 and he was declined for liver transplant due to social issues that include unstable housing, lack of income, lack of caregivers and lack of transportation. . Jeremi Abreu, RN, BSN Liver Engineering Programmer [facility] Work Phone: [phone]) [phone] Miscellaneous Notes* Telephone Encounter - Jeremi Abreu [...] transportation. . Jeremi Abreu RN, BSN Liver Engineering Programmer documented in this encounterMary [facility] Hospital04-17-20[facility]-2025 Note [facility]-20[facility]-20[facility] 11-15-20[facility]-20[facility]-20[facility]-2025 History of Present illness Narrative* Marah Arauz [...] 15, 2024 2:35 PM documented in this encounterMary [facility]04-14-2025 [facility]04-[facility]-2025 History of Present illness Narrative* Virgil Farley DDS - 11/15/2024 1:48 PM EDTSummary: Liver Transplant Dental Bedside Clearance See inpatient note for this encounter on 11/15/2024. Virgil Farley DDS documented in this encounterMary [facility] Hospital04-14-2025 [facility]04-13-2025 [facility]-12-2025 [facility]04-11-2025 History of Present illness Narrative* Lizett Guzman [facility] - 11/12/2024 4:34 PM EDT Pharmacist Pre-Transplant [...] mg capsule(s) rifAXIMin 550 mg tab(s) (XIFAXAN) tikpgkj-fdqpihgzc-hpwmbqh D3 500 mg-5 mcg (200 unit) 1 [...] Guzman, PharmD Transplant Pharmacy Clinical Specialist Pager: [phone] documented in this encounterMary [facility] Hospital04-11-2025 [facility]04-[facility]-2025 [facility]04-[facility]-2025 History of Present illness Narrative* Jeremi Abreu, DAYSI - 11/12/2024 2:52 PM EDT The following information has been provided/discussed with the patient/family during Shared MedicalAppointment education class: Informed Consent for Organ Transplant Program Participation version February 20, 2023. SRTR information provided and questions answered. Informed patient to call film sound coordinator with any questions. UNOS information regarding multiple listings for organ transplantation Evaluation process including presentation to selection committee and listing criteria Surgical procedure, including post-operative management, hospitalization, immunosuppressive medications and their side effects (including the risk for hypertension, diabetes, kidney problems and cancers) and termite treater follow up after transplant. Possibility of recurrent [...] was also addressed Patient was provided with [facility] information sheet regarding transplantation of HepatitisC [...] LIMITATIONS AFFECTING LEARNING: None LEARNING RESPONSE DIAGNOSIS: [facility] METHOD OF INSTRUCTION: Verbal instruction Video PATIENT / FAMILY RESPONSE: Information received as demonstrated by interest and questions FOLLOW-UP PLAN: Contact information given. SUPPLEMENTAL MATERIAL: None REFERRAL (RECOMMENDATION): None Electronically Signed By: Jeremi Abreu RN In Department: TRANSPLANT CENTER documented in this encounterMary [facility]04-11-2025 [facility]04-11-2025 History of Present illness Narrative* Marah Arauz [...] 12, 2024 1:16 PM documented in this encounterMary [facility]an Hospital04-11-2025 Miscellaneous Notes* Telephone Encounter - Jeremi Abreu RN - 11/12/2024 12:08 PM EDT INFORMED CONSENT Franklin Wiggins Medical Record: [id number] Informed consent for Organ Transplant Program Participation [...] questions answered. Jeremi Abreu RN, BSN Liver Engineering Programmer documented in this encounterMary [facility] Hospital04-11-2025 Telephone encounter Note * Telephone Encounter - Jeremi Abreu RN - 11/12/2024 12:08 PM EDT INFORMED CONSENT Franklin Wiggins Medical Record: [id number] Informed consent for Organ Transplant Program Participation [...] questions answered. Jeremi Abreu RN, BSN Liver Engineering Programmer [facility] Work Phone: 1(127) 518-704604-11-2025 [facility]04-11-2025 NoteHNO ID: [id number] Author: KIRTI VELÁSQUEZ RN Service: Nursing Author Type: Registered Nurse Type: Nursing Progress Note Filed: 11/12/2024 00:58 Note Text: Other: PTTAC-no clot detected at 320-heparin gtt stopped-need futher orders-insulation worker interior surface notifiedKind[facility]04-10-2025 [facility] 11-11-2024 [facility]04[facility]10-2025 [facility]04-09-2025 Discharge summary Author Kathie Powers [facility] Note Date/Time November 10, 2024 8:42 pm [facility] Medical Records Department [address] [place] [address] Discharge Summary 11/10/241936 MR#: [id number] Acct: [id number] Name: FRANKLIN WIGGINS Rep #:[id number] : 1965 59 From: Kathie Powers MD PCP: Care Physician,No Primary Status :ADM IN Location: [place] [id number] Providers Date of Admission: 10/29/24 Date of Discharge: 11/10/24 Primary Care Physician: No Primary Care Phys Consultations 10/29/24 01:15 Consult: Urology Routine Consulting Provider: Foster Rascon Reason for Consult: Sepsis with UTI and Staghorn Calculus. EMERGENT Consult: No MD Notified: Yes Date Notified: 10/29/24 Time Notified: 08:07 Method of Notification: Verbal 10/29/24 01:47 Consult: Trailer Driver / Pulmonary Medicine Routine Consulting Provider: Intensivists/Pulmonary Med Reason for Consult: Sepsis, UTI, Diarrhea, Abdominal Pain and Back Pain. EMERGENT Consult: No MD Notified: Yes Date Notified: 10/29/24 Time Notified: 04:58 Method of Notification: Text 10/30/24 03:54 Consult: Gastroenterology Routine Consulting Provider: [facility] Reason for Consult: BOYER, elevated ammonia EMERGENT Consult: No MD Notified: Yes Date Notified: 10/30/24 Time Notified: 07:31 Method of Notification: Text 11/09/24 21:26 Consult: Gastroenterology Routine Consulting Provider: [facility] Reason for Consult: cirrhosis,ascites,splenic thrombosis, low plts, possible dec in heidy motili EMERGENT Consult: No MD Notified: Yes Date Notified: 11/10/24 Time Notified: 05:35 Method of Notification: Text Consult: Oncology/Hematology Routine Consulting Provider: *[facility] Reason for Consult: splenic [...] diabetes, staghorn colliculi, cirrhosis who presented to [facility] ED 10/29/2024 with sepsis and was found [...] heme-onc was in agreement. Reach out to [facility] and ultimately patient was accepted by the restaurant shift leader Dr. Neal. Patient with bed assignment 11/10, patient to be transferred to [facility] Physical Exam Narrative General: Sleeping but [...] 83.0 H, Lymph % (Auto) 6.6 L, Dade % (Auto) 6.9, Eos % (Auto) 1.9, [...] Clarity Turbid, Urine pH 6.5, Ur Specific Nunda 1.015, Urine Protein 500 H, Urine Glucose [...] Garza; Zachariah Glover; Scott Weston; Yue Delgadillo KINESIOLOGY PROFESSOR Discharge Orders/Prescriptions Prescriptions: No Action lidocaine 5 [...] fever or pain) [facility]errals / [facility] - In 1 Week Care Physician,No Primary [Primary Care Provider] - Disposition Disposition (needs filled in before D/C Order can be placed): Acute Care Hospital Charges/Coding Visit Charges Inpatient E&M: 33478 Disch Hosp >30min 11/10/242041 <Electronically signed by Kathie Powers MD> Cosigner Signature (if applicable): CC: Dr. Kathie Powers MD; No Primary Care Physician~ Signed [facility] Work Phone: 1(771) 274-148404-09-2025 Discharge summary Author Kathie Powers [facility] Note Date/Time November 10, 2024 7:37 pm [facility] Medical Records Department [address] [place] [address] Instructions for Home/Discharge Instructions 11/10/241935 MR#: [id number] Acct: [id number] Name: FRANKLIN WIGGINS Rep #:[id number] : [...] Garza; Zachariah Glover; Scott Weston; Yue Delgadillo KINESIOLOGY PROFESSOR Discharge Orders/Prescriptions Prescriptions: No Action lidocaine 5 [...] in before D/C Order can be placed): [facility] 11/10/241936<Electronically signed by Kathie Powers [...] DO; No Primary Care Physician ~ Signed [facility] Work Phone: 1(589) 722-555704-09-2025 Consult note Author Foster Rascon [facility] Note Date/Time November 10, 2024 8:59 am [facility] Medical Records Department [address] [place] [address] Consultation 11/10/24 0857 MR#: [id number] Acct: [id number] Name: FRANKLIN WIGGINS Rep #:[id number] : 1965 59 From: Foster Rascon MD PCP: Care Physician,No Primary Status :ADM IN Location: [facility] [id number] Consult Date of Consult: 11/10/24 59-year-old [...] applicable): CC: No Primary Care Physician~ Signed [facility] Work Phone: 1(262) 515-256604-08-2025 Progress note Author Kathie Powers [facility] Note Date/Time November 09, 2024 9:26 pm [facility] Medical Records Department [address] [place] [address] Progress Note - Hospitalist 11/09/242120 MR#: [id number] Acct: [id number] Name: FRANKLIN WIGGINS Rep #:[id number] : 1965 59 From: Kathie Powers MD PCP: Care Physician,No Primary Status :ADM IN Location: [place] [address] scan w/ ascites and [...] Cosigner Signature (if applicable): CC: ~ Signed [facility] Work Phone: 1(285) 708-294904-08-2025 Progress note Author Kathie Powers [facility] Note Date/Time November 09, 2024 6:54 pm [facility] Medical Records Department [address] [place] [address] Progress Note - Hospitalist 11/09/24 1850 MR#: [id number] Acct: [id number] Name: FRANKLIN WIGGINS Rep #:[id number] : 1965 59 From: Kathie Powers MD PCP: Care Physician,No Primary Status :ADM IN Location: [place] [address] Reason for Visit Reason for Visit: Diagnoses [...] 79.1 H, Lymph % (Auto) 8.2 L, Dade % (Auto) 8.1, Eos % (Auto) 3.0, [...] with interval NG tube removal. Reading Location: [facility] Rhythm Strip Rhythm Strip: Sinus [...] 42 Minutes Charges/Coding Visit Charges Inpatient E&M: 14956 Subs Hosp L2 11/09/24 9924 <Electronically signed by Kathie Powers MD> Cosigner Signature (if applicable): CC: ~ Signed [facility] Work Phone: 1(166) 304-407504-08-2025 Radiology Diagnostic study [facility]04-08-2025 Radiology Diagnostic study [facility]04-07-2025 Progress note Author Kathie Powers [facility] Note Date/Time November 08, 2024 6:26 pm [facility] Medical Records Department [address] [place] [address] Progress Note - Hospitalist 11/08/24 1441 MR#: [id number] Acct: [id number] Name: FRANKLIN WIGGINS Rep #:[id number] : 1965 59 From: Kathie Powers MD PCP: Care Physician,No Primary Status :ADM IN Location: [place] [address] Reason for Visit Reason for Visit: Diagnoses [...] 56 Minutes Charges/Coding Visit Charges Inpatient E&M: 04959 Subs Hosp L3 11/08/24 1503 <Electronically signed [...] from pts RN at this time 11/08/24 182<Electronically signed by Kathie Powers MD> Cosigner Signature (if applicable): cc: ~* Signed [facility] Work Phone: 1(546) 173-523104-06-2025 Progress note Author Hill Acuña [facility] Note Date/Time November 07, 2024 10:3 8am [facility] Medical Records Department [address] [place] [address] Progress Note - Hospitalist 11/07/24 0913 MR#: [id number] Acct: [id number] Name: FRANKLIN WIGGINS Rep #:[id number] : 1965 59 From: Hill Acuña MD PCP: Care Physician,No Primary Status :ADM IN Location: [place] [address] Reason for Visit Reason for Visit: Diagnoses [...] 81.5 H, Lymph % (Auto) 6.9 L, Dade % (Auto) 6.9, Eos % (Auto) 2.3, [...] he has been given a referral to [facility] 1 Time spent in the patient's overall evaluation,decision-making process, review of diagnostic data, adjustment of management, discussion with other providers, nursing nursing and ancillary staff involved in patient's care documentation, 36 Minutes Charges/Coding Visit Charges Inpatient E&M: 47691 Subs Hosp L2 11/07/24 1038 <Electronically signed by Hill Acuña MD> Cosigner Signature (if applicable): CC: ~ Signed [facility] Work Phone: 1(137) 777-276204-05-2025 Progress note Author Hill [facility] Note Date/Time November 06, 2024 10:5 7am [facility] Medical Records Department [address] [place] [address] Progress Note - Hospitalist 11/06/24 0756 MR#: [id number] Acct: [id number] Name: FRANKLIN WIGGINS Rep #:[id number] : 1965 59 From: Hill Acuña MD PCP: Care Physician,No Primary Status :ADM IN Location: [place] [address] Reason for Visit Reason for Visit: Diagnoses [...] 36 Minutes Charges/Coding Visit Charges Inpatient E&M: 86410 Subs Hosp L2 11/06/24 1057 <Electronically signed by Hill Acuña MD> Cosigner Signature (if applicable): CC: ~ Signed [facility] Work Phone: 1(800) 423-772204-04-2025 Progress note Author Hill Acuña [facility] Note Date/Time November 05, 2024 9:26 am [facility] Medical Records Department [address] [place] [address] Progress Note - Hospitalist 11/05/24 0924 MR#: [id number] Acct: [id number] Name: FRANKLIN WIGGINS Rep #:[id number] : 1965 59 From: Hill Acuña MD PCP: Care Physician,No Primary Status :ADM IN Location: [place] [address] Reason for Visit Reason for Visit: Diagnoses [...] 81.0 H, Lymph % (Auto) 6.7 L, Dade % (Auto) 7.1, Eos % (Auto) 2.3, [...] 38 Minutes Charges/Coding Visit Charges Inpatient E&M: 93731 Subs Hosp L2 11/05/24 0986 <Electronically signed by Hill Acuña MD> Cosigner Signature (if applicable): CC: ~ Signed [facility] Work Phone: 1(522) 909-783304-03-2025 Progress note Author Hill Acuña [facility] Note Date/Time November 04, 2024 11:5 0am [facility] Medical Records Department [address] [place] [address] Progress Note - Hospitalist 11/04/24 1105 MR#: [id number] Acct: [id number] Name: FRANKLIN WIGGINS Rep #:[id number] : 1965 59 From: Hill Acuña MD PCP: Care Physician,No Primary Status :ADM IN Location: [place] [address] Reason for Visit Reason for Visit: Diagnoses [...] 83.6 H, Lymph % (Auto) 4.9 L, Dade % (Auto) 5.9, Eos % (Auto) 1.1, [...] 38 Minutes Charges/Coding Visit Charges Inpatient E&M: 39277 Subs Hosp L2 11/04/24 1150 <Electronically signed by Hill Acuña MD> Cosigner Signature (if applicable): CC: ~ Signed [facility] Work Phone: [phone]) 656-734804-03-2025 Progress note Author Maria Guadalupe Shore [facility] Note Date/Time November 04, 2024 6:43 am [facility] Medical Records Department [address] [place] [address] Progress Note - Hospitalist 11/04/24 0642 MR#: [id number] Acct: [id number] Name: FRANKLIN WIGGINS Rep #:[id number] : 1965 59 From: Maria Guadalupe Shore MD PCP: Care Physician,No Primary Status :ADM IN Location: [place] [address] Hospitalist Note Patient with 15 beat asymptomatic VT. Electrolytes recently checked, mag normal range, K normal range. 11/04/24 0643 <Electronically signed by Maria Guadalupe Shore MD> Cosigner Signature (if applicable): CC: ~ Signed [facility] Work Phone: 1([phone] 221-254004-03-2025 Progress note Author [facility] Note Date/Time November 03, 2024 10:3 8pm [facility] Medical Records Department [address] [place] [address] Progress Note - Hospitalist 11/03/242236 MR#: [id number] Acct: [id number] Name: FRANKLIN WIGGINS Rep #:[id number] : 1965 59 From: Maria Guadalupe Shore MD PCP: Care Physician,No Primary Status :ADM IN Location: [place] [address] Hospitalist Note Patient with mildly tachycardia through the late afternoon and evening. Will administer 500 cc bolus and reassess. From review of medications not normally onBB therapy. 11/03/242237 <Electronically signed by Maria Guadalupe Shore MD> Cosigner Signature (if applicable): CC: ~ Signed [facility] Work Phone: [phone] Progress note [facility] Note Date/Time November 03, 2024 10:2 7am [facility] Medical Records Department [address] [place] [address] Progress Note - Hospitalist 11/03/24 1025 MR#: [id number] Acct: [id number] Name: FRANKLIN WIGGINS Rep #:[id number] : 1965 59 From: Hill Acuña MD PCP: Care Physician,No Primary Status :ADM IN Location: [place] [address] Reason for Visit Reason for Visit: Diagnoses [...] 38 Minutes Charges/Coding Visit Charges Inpatient E&M: 51323 Subs Hosp L2 11/03/24 1027 <Electronically signed by Hill Acuña MD> Cosigner Signature (if applicable): CC: ~ Signed [facility] Work Phone: [phone]) [phone] Progress note Author [facility] Note Date/Time November 02, 2024 10:0 5am [facility] Medical Records Department [address] [place] [address] Progress Note - Hospitalist 11/02/24 0804 MR#: [id number] Acct: [id number] Name: GEREMIASFRANKLIN CASEY Rep #:[id number] : 1965 59 From: Hill Acuña MD PCP: Care Physician,No Primary Status :ADM IN Location: [place] [address] Reason for Visit Reason for Visit: Diagnoses [...] 50 Minutes Charges/Coding Visit Charges Inpatient E&M: 11907 Subs Hosp L3 11/02/24 1005 <Electronically signed by Hill Acuña MD> Cosigner Signature (if applicable): CC: ~ Signed [facility] Work Phone: [phone] Progress note Author Hill Acuña [facility] Note Date/Time November 01, 2024 11: 41am [facility] Medical Records Department [address] [place] [address] Progress Note - Hospitalist 11/01/24 1128 MR#: [id number] Acct: [id number] Name: FRANKLIN WIGGINS Rep #:[id number] : 1965 59 From: Hill Acuña MD PCP: Care Physician,No Primary Status :ADM IN Location: [place] [address] Reason for Visit Reason for Visit: Diagnoses [...] 50 Minutes Charges/Coding Visit Charges Inpatient E&M: 54810 Subs Hosp L3 11/01/24 1141 <Electronically signed by Hill Acuña MD> Cosigner Signature (if applicable): CC: ~ Signed [facility] Work Phone: [phone] Progress note Author Niranjan Li [facility] Note Date/Time November 01, 2024 8:4 4am [facility] Medical Records Department [address] [place] [address] Progress Note 11/01/24 0836 MR#: [id number] Acct: [id number] Name: FRANKLIN WIGGINS Rep #:[id number] : 1965 59 From: Niranjan Li DO PCP: Care Physician,No Primary Status :ADM IN Location: [place] [address] Progress Note Patient has a little bit [...] doses of vancomycin. Visit Charges Inpatient E&M: 08843 Subs Hosp L3 11/01/24 0844 <Electronically signed by Niranjan Li DO> Niranjan Li DO Cosigner Signature (if applicable): CC: ~ Signed [facility] Work Phone: [phone] Consult note Author Ale Renee [facility] Note Date/Time November 01, 2024 6:1 1am [facility] Medical Records Department [address] [place] [address] Pharmacokinetic/Renal -Consult 11/01/24 0604 MR#: [id number] Acct: [id number] Name: FRANKLIN WIGGINS Rep #:[id number] : 1965 59 From: Ale Renee PCP: Care Physician,No Primary Status :ADM IN Y Location: [place] [address] Consult Antibiotic Management Pharmacy has been consulted [...] Ale Renee> Date _ Ale Renee 11/01/24 06 <Electronically signed by Hill Stiles DO> Cosigner Signature (if applicable): Date Hill Caro DO CC: ~ Signed [facility] Work Phone: [phone] 498-722603-30-2025 Progress note Author Buster Fuchs [facility] Note Date/Time October 31, 2024 9:5 5am [facility] Medical Records Department [address] [place] [address] Progress Note - Hospitalist 10/31/24 0952 MR#: [id number] Acct: [id number] Name: GEREMIASFRANKLIN CARMELA Rep #:[id number] : 1965 59 From: [...] (Auto) 80.3 H, Lymph %(Auto) 5.9 L, Dade % (Auto) 7.9, Eos % (Auto) 1.5, [...] they did add IV Flagyl ? Appreciate harness installer assistance 2. Acute metabolic cephalopathy with nonalcoholic [...] DVT: SCDs Charges/Coding Visit Charges Inpatient E&M: 50408 Subs Hosp L2 10/31/24 0955 <Electronically signed by Buster Fuchs MD> Cosigner Signature (if applicable): CC: ~ Signed [facility] Work Phone: [phone] 215-409703-30-2025 Consult note Author Foster Rascon [facility] Note Date/Time October 31, 2024 7:3 1am [facility] Medical Records Department [address] [place] [address] Consultation 10/31/24 0730 MR#: [id number] Acct: [id number] Name: FRANKLIN WIGGINS Rep #:[id number] : [...] applicable): CC: No Primary Care Physician~ Signed [facility] Work Phone: [phone] Consult note Author Niranjan Li [facility] Note Date/Time October 30, 2024 9:3 4pm [facility] Medical Records Department [address] [place] [address] Consultation - GI 10/30/242047 MR#: [id number] Acct: [id number] Name: FRANKLIN WIGGINS Rep #:[id number] : [...] of yellow-colored fluid removed. He presented backto [facility] ER complaining of abdominal pain, back pain [...] is also on Zosyn for urosepsis. [facility] Medical History Chronic hypotension Obesity [...] 85.6 H, Lymph % (Auto) 4.3 L, Dade % (Auto) 7.3, Eos % (Auto) 0.5, [...] NG tube in satisfactory position. Reading Location: [facility] Assessment & Plan Assessment/Plan (1) Sepsis: QUALIFIERS: [...] this admission. Charges/Coding Visit Charges Inpatient E&M: 18950 Init Hosp L3 10/30/242133 <Electronically signed by Niranjan Friend DO> Cosigner Signature (if applicable): CC: No Primary Care Physician~ Signed [facility] Work Phone: [phone]) [phone] Consult note Author Kourtney Reece [facility] Note Date/Time October 30, 2024 4:[address] [facility] [address] [place] [address] Pharmacokinetic/Renal -Consult 10/30/24 1552 MR#: [id number] Acct: [id number] Name: FRANKLIN WIGGINS Rep #:[id number] : [...] Date Buster Fuchs MD CC: ~ Signed [facility] Work Phone: [phone] Progress note Author Jeff Cornelius [facility] Note Date/Time October 30, 2024 10: 45am [facility] Medical Records Department [address] [place] [address] Progress Note - Trailer Driver 10/30/24 1037 MR#: [id number] Acct: [id number] Name: FRANKLIN WIGGINS Rep #:[id number] : [...] 85.5 H, Lymph % (Auto) 4.6 L, Dade % (Auto) 7.4, Eos % (Auto) 1.2, [...] 85.6 H, Lymph % (Auto) 4.3 L, Dade % (Auto) 7.3, Eos % (Auto) 0.5, [...] NG tube in satisfactory position. Reading Location: [facility] Assessment and Plan . Assessment and plan: [...] Cosigner Signature (if applicable): CC: ~ Signed [facility] Work Phone: [phone] 302-415003-29-2025 Consult note Author Foster Rascon [facility] Note Date/Time October 30, 2024 9:5 8am [facility] Medical Records Department [address] [place] [address] Consultation - Urology 10/30/24 0956 MR#: [id number] Acct: [id number] Name: FRANKLIN WIGGINS Rep #:[id number] : [...] not available on the weekend here at [facility]. We discussed transferring to other hospital for nephrostomy tube placement. We could also have a nephrostomy tube placed on Friday if radiology services are available. For now we will continue with broad-spectrum antibiotics await culture results but if things progress I think he is going to need nephrostomy tube we will continue to follow. [facility] Medical History Chronic hypotension Obesity [...] 85.5 H, Lymph % (Auto) 4.6 L, Dade % (Auto) 7.4, Eos % (Auto) 1.2, [...] 85.6 H, Lymph % (Auto) 4.3 L, Dade % (Auto) 7.3, Eos % (Auto) 0.5, [...] noted. Reading Location: [facility] KUB X-Ray 10/30/24 09:11 IMPRESSION: NG tube in satisfactory position. Reading Location: [facility] 10/30/24 0958 <Electronically signed by Foster Rascon MD> Cosigner Signature (if applicable): CC: No Primary Care Physician~ Signed [facility] Work Phone: [phone] Progress note Author Buster Fuchs [facility] Note Date/Time October 30, 2024 8:2 9am [facility] Medical Records Department [address] [place] [address] Progress Note - Hospitalist 10/30/24819 MR#: [id number] Acct: [id number] Name: FRANKLIN WIGGINS Rep #:[id number] : [...] 85.5 H, Lymph % (Auto) 4.6 L, Dade % (Auto) 7.4, Eos % (Auto) 1.2, [...] 85.6 H, Lymph % (Auto) 4.3 L, Dade % (Auto) 7.3, Eos % (Auto) 0.5, [...] antibiotics ? Cultures are pending ? Appreciate harness installer assistance 2. Acute metabolic cephalopathy with nonalcoholic [...] DVT: SCDs Charges/Coding Visit Charges Inpatient E&M: 82474 Subs Hosp L2 10/30/24 0829 <Electronically signed by Buster Fuchs MD> Cosigner Signature (if applicable): CC: ~ Signed [facility] Work Phone: [phone] Radiology Diagnostic study [facility]03-28-2025 Consult note Author Foster Rascon [facility] Note Date/Time October 29, 2024 10: 32am [facility] Medical Records Department [address] [place] [address] Consultation - Urology 10/29/24 0808 MR#: [id number] Acct: [id number] Name: FRANKLIN WIGGINS Rep #:[id number] : [...] intervention is necessary from my standpoint [facility] Medical History Chronic hypotension Obesity [...] 83.0 H, Lymph % (Auto) 5.6 L, Dade % (Auto) 8.4, Eos % (Auto) 1.4, [...] vertebral body compression fracture deformities. Reading Location: [id number] 10/29/24 1032 <Electronically signed by Foster Rascon MD> Cosigner Signature (if applicable): CC: No Primary Care Physician~ Signed [facility] Work Phone: [phone] Consult note Author Bola Meraz [facility] Note Date/Time October 29, 2024 10: 24am [facility] Medical Records Department [address] [place] [address] Consultation - Trailer Driver 10/29/24 0744 MR#: [id number] Acct: [id number] Name: FRANKLIN WIGGINS Rep #:[id number] : 1965 59 From: Bola Kt NOYOLA PCP: Care Physician,No Primary Status :ADM IN [...] coverage initiated. This note was generated with Circle[employer] software. It may contain incorrectwords, spelling, and [...] without the need for vasopressor support. [facility] Medical History Chronic hypotension Obesity [...] 83.0 H, Lymph % (Auto) 5.6 L, Dade % (Auto) 8.4, Eos % (Auto) 1.4, [...] vertebral body compression fracture deformities. Reading Location: [facility] Charges/Coding Visit Charges Inpatient E&M: 88949 Init Hosp L3 10/29/24 1024 <Electronically signed by Bola Meraz DO> Cosigner Signature (if applicable): CC: No Primary Care Physician~ Signed [facility] Work Phone: [phone] Radiology Diagnostic study [facility]03-28-2025 History and physical note Author Hill Wright [facility] Note Date/Time October 29, 2024 6:4 7am [facility] Medical Records Department [address] [place] [address] H&P Exam - Hospitalist 10/29/24 0033 MR#: [id number] Acct: [id number] Name: FRANKLIN WIGGINS Rep #:[id number] : [...] toSeptember 02, 2024 with patient diagnosed with olnhf-oa-xbzgyjf hypotension in thesetting of acute hepatic encephalopathy [...] fluid removed who once again presents to [facility] ER complaining of abdominal pain, back pain and diarrhea. Mr. Wiggisn is a very limited historian - but [...] expected to extend beyond 2 midnights. [facility] Medical History Chronic hypotension Obesity [...] 83.0 H, Lymph % (Auto) 5.6 L, Dade % (Auto) 8.4, Eos % (Auto) 1.4, [...] vertebral body compression fracture deformities. Reading Location: [facility] Assessment & Plan Assessment/Plan (1) [...] and sensitivity data. Give acetaminophen prn for mqws-qc-rsptoqlu (level 1-5/10) pain or fever. Give morphine [...] appreciated in advance. Finally, we will consult harness installer to see this patient on-rounds in the AM for further recommendations with help appreciated in advance. 2. Admission here from August 29, 2024 to September 02, 2024 with patient diagnosed with oncxc-ia-rxsqqhh hypotension in the setting of acute hepatic [...] responsive hypotension Charges/Coding Visit Charges Inpatient E&M: 57523 Init Hosp L3 10/29/24 0609 <Electronically signed by Hill Caro DO> Cosigner Signature (if applicable): CC: Dr. Hill Caro, DO; No Primary Care Physician~ Signed [facility] Work Phone: [phone] Consult note Author Ale Renee [facility] Note Date/Time October 29, 2024 3:3 4am [facility] Medical Records Department [address] [place] [address] Pharmacokinetic/Renal -Consult 10/29/24316 MR#: [id number] Acct: [id number] Name: FRANKLIN WIGGINS Rep #:[id number] : [...] Date Hill Caro DO CC: ~ Signed [facility] Work Phone: [phone] Discharge summary Author Alber Dunn [facility] Note Date/Time October 29, 2024 1:0 4am [facility] Medical Records Department [address] [place] [address] Emergency Department Summary 10/28/24 MR#: [id number] Acct: [id number] Name: FRANKLIN WIGGINS Rep #:[id number] : [...] Prior similar symptoms: Yes Recent Illness/Hospitalization: No [facility] Medical History Chronic hypotension Obesity (BMI [...] There is a pressure was 81/50 5 zewugb32/60 when I am in the room it [...] 83.0 H Lymph % (Auto) 5.6 L Dade % (Auto) 8.4 Eos % (Auto) 1.4 [...] Clarity Cloudy Urine pH 6.5 Ur Specific Nunda 1.015 Urine Protein 500 H Urine Glucose [...] vertebral body compression fracture deformities. Reading Location: [facility] Rhythm Strip Rhythm Strip: Sinus Rhythm Rate: 83 Ectopy: None EKG Initial EKG: Attestation: I personally reviewed and interpreted this EKG as follows: Interpretation: Sinus Rhythm and No Acute Injury Pattern Comments: Normal sinus rhythm rate 83 no acute signs of ND or ischemia. No dysrhythmia. Critical Care Time Critical Care Time: Yes Critical care time (excluding procedures): 30-74 minutes, Including time spent:,Discussing w/Patient &/or Family/Adolescent Counselor, Discussing w/Consultants, ArrangingAdmission or Transfer, Performing Direct Patient Care at Bedside and - (38 min) Discharge Plan Dx/Rx/DC Orders Clinical Impression: Chronic back pain, Chronic abdominal pain, Leukocytosis, Acute UTI, Acute hypotension, Acidosis, lactic, Sepsis Disposition Disposition: Acute Care Hospital [facility] What to do if you have Problems For any increased pain, shortness of breath, bleeding, nausea or vomiting, chestpain, or any unexpected problems, contact your Primary Care Provider. Call [facility] ([phone]) or report to the closest Emergency Room. Call 911 if necessary. 10/29/24 0104 <Electronically signed by Alber Dunn MD> Cosigner Signature (if applicable): CC: No Primary Care Physician ~ Signed [facility] Work Phone: [phone] 801-889303-28-2025 Evaluation note* Diagnosis Onset Date Resolution Status [...] acute January 09, 2025 2:16pm Leukocytosis acute Georgina 8th, 20 25 2:16pm Metabolic acidosis acute January 092024 2:16pm Sepsis acute January 09, 2025 2:16pm Spinal stenosis, lumbar zuleyma on with neurogenic claudication acute Jan 2:16pm Umbilical hernia acute January 2:16pm Acute UTI acute January 28 7:00am Hepatic encephalopathy acute Ju 2024 7:00am Lactic acidosis acute January 7:00am [facility] Work Phone: [phone] Evaluation note* Diagnosis Onset Date Resolution Status Admit Date Clostridium difficile colitis acute October 29, 2024 12:43am History of uric acid staghor n calculus acute October 29, 2024 12:43am Hyponatremia acute October 29, 2024 12:43am Leukocytosis acute October 29, 2024 12:43am Obesity (BMI 30.0-34.9) acute [facility] 2024 12:43am Chronic abdominal pain chronic [facility] 2024 12:43am Chronic back pain chronic [...] January 7:00am Umbilical hernia acute January 7:00am [facility] Work Phone: [phone] Evaluation note* Diagnosis Onset Date Resolution Status Admit Date Clostridium difficile colitis acute October 29, 2024 12:43am History of uric acid staghor n calculus acute October 29, 2024 12:43am Hyponatremia acute October 29, 2024 12:43am Leukocytosis acute October 29, 2024 12:43am Obesity (BMI 30.0-34.9) acute 2024 12:43am Chronic abdominal pain chronic [facility] 2024 12:43am Chronic back pain chronic [...] January 7:00am Umbilical hernia inactive January 7:00am [facility] Work Phone: [phone] Evaluation note* Diagnosis Onset Date Resolution Status Admit Date Clostridium difficile colitis acute October 29, 2024 12:43am History of uric acid staghor n calculus acute October 29, 2024 12:43am Hyponatremia acute October 29, 2024 12:43am Leukocytosis acute October 29, 2024 12:43am Obesity (BMI 30.0-34.9) acute [facility] 2024 12:43am Chronic abdominal pain chronic [facility] 2024 12:43am Chronic back pain chronic [...] Chronic anemia chronic February 16, 2025 6:26pm [facility] Work Phone: [phone] 483-361103-28-2025 Evaluation note* Diagnosis Onset Date Resolution Status Admit Date Clostridium difficile colitis acute October 29, 2024 12:43am History of uric acid staghor n calculus acute October 29, 2024 12:43am Hyponatremia acute October 29, 2024 12:43am Leukocytosis acute October 29, 2024 12:43am Obesity (BMI 30.0-34.9) acute [facility] 2024 12:43am Chronic abdominal pain chronic [facility] 2024 12:43am Chronic back pain chronic [...] Chronic anemia chronic February 16, 2025 6:26pm [facility] Work Phone: [phone] Evaluation note* Diagnosis Onset Date Resolution Status Admit Date Clostridium difficile colitis acute October 29, 2024 12:43am History of uric acid staghor n calculus acute October 29, 2024 12:43am Hyponatremia acute October 29, 2024 12:43am Leukocytosis acute October 29, 2024 12:43am Obesity (BMI 30.0-34.9) acute [facility] 2024 12:43am Chronic abdominal pain chronic [facility] 2024 12:43am Chronic back pain chronic [...] Compression fracture of thoracic spine, non-traumatic acute Marcella ne 2024 2:16pm Leukocytosis acute January 09 2:16pm [...] resolved January 7:00am Hepatic encephalopathy inactive Marcella rodriguez 2024 7:00am Umbilical hernia inactive January 7:00am Chronic anemia inactive February 16, 2025 6:26pm Cirrhosis of liver with ascites inac tive February 16, 2025 6:26pm Decompensated cirrhosis inactive Tee orozco 2024 6:26pm Elevated liver enzymes inactive Marcella dexter 2024 6:26pm History of diabetes mellitus inactiv e February 16, 2025 6:26pm Hyperammonemia inactive February 16, 2025 6:26pm Acute hepatic encephalopathy inactiv e February 25, 2025 4:13pm Cirrhosis of liver with ascites inac tive February 25, 2025 4:13pm Diffuse abdominal pain inactive 2024 4:13pm Elevated liver enzymes inactive 2024 4:13pm Hepatic encephalopathy inactive 2024 4:13pm Hyperammonemia inactive February 25, 2025 4:13pm Hepatic cirrhosis acute March 10, 2025 1:52pm [facility] Work Phone: [phone] Discharge summary [facility] Medical Records Department [address] [place] [address] Emergency Department Summary 10/28/24 MR#: [id number] Acct: [id number] Name: FRANKLIN WIGGINS Rep #:[id number] : [...] 83.0 H Lymph % (Auto) 5.6 L Dade % (Auto) 8.4 Eos % (Auto) 1.4 [...] Clarity Cloudy Urine pH 6.5 Ur Specific Nunda 1.015 Urine Protein 500 H Urine Glucose [...] vertebral body compression fracture deformities. Reading Location: [facility] Rhythm Strip Rhythm Strip: Sinus Rhythm Rate: 83 Ectopy: None EKG Initial EKG: Attestation: I personally reviewed and interpreted this EKG as follows: Interpretation: Sinus Rhythm and No Acute Injury Pattern Comments: Normal sinus rhythm rate 83 no acute signs of ND or ischemia. No dysrhythmia. Critical Care Time Critical Care Time: Yes Critical care time (excluding procedures): 30-74 minutes, Including time spent:,Discussing w/Patient &/or Family/Adolescent Counselor, Discussing w/Consultants, ArrangingAdmission or Transfer, Performing Direct Patient Care at Bedside and - (38 min) Discharge Plan Dx/Rx/DC Orders Clinical Impression: Chronic back pain, Chronic abdominal pain, Leukocytosis, Acute UTI, Acute hypotension, Acidosis, lactic, Sepsis Disposition Disposition: Acute Care Hospital [facility] What to do if you have Problems For any increased pain, shortness of breath, bleeding, nausea or vomiting, chestpain, or any unexpected problems, contact your Primary Care Provider. Call [facility] ([phone]) or report tothe closest Emergency Room. Call 911 if necessary. 10/29/24 0104 Cosigner Signature (if applicable): CC: No Primary Care Physician ~ Signed [facility]03-27-2025 Radiology Diagnostic study note [facility] Imaging Services [address], [place] [id number] Abdomen/Pelvis W IV Cont ONLY MR#: [id number] Acct: [id number] Name: FRANKLIN WIGGINS Rep #: [id number] : 1965 M 59 From: Cassandra Starkey MD PCP: Care Physician,No Primary Status: REG ER Study:Abdomen/Pelvis W IV Cont ONLY Date of E xam: 10/28/24 Exam# [id number] Ordering Dr: Tee Dunn MD PROCEDURE: ABDOMEN/PELVIS [...] vertebral body compression fracture deformities. Reading Location: [id number] CC: Dr. Alber Dunn MD; No Primary Care Physician ~ Sight Effects Specialist: Signed [facility]03-27-2025 Discharge summary Author Alber Dunn [facility] Note Date/Time October 29, 2024 1:0 4am [facility] Medical Records Department [address] [place] [address] Emergency Department Summary 10/28/24 MR#: [id number] Acct: [id number] Name: FRANKLIN WIGGINS Rep #:[id number] : [...] Prior similar symptoms: Yes Recent Illness/Hospitalization: No [facility] Medical History Chronic hypotension Obesity (BMI [...] There is a pressure was 81/50 5 wpwyhw45/60 when I am in the room it [...] 83.0 H Lymph % (Auto) 5.6 L Dade % (Auto) 8.4 Eos % (Auto) 1.4 [...] Clarity Cloudy Urine pH 6.5 Ur Specific Nunda 1.015 Urine Protein 500 H Urine Glucose [...] vertebral body compression fracture deformities. Reading Location: [facility] Rhythm Strip Rhythm Strip: Sinus Rhythm Rate: 83 Ectopy: None EKG Initial EKG: Attestation: I personally reviewed and interpreted this EKG as follows: Interpretation: Sinus Rhythm and No Acute Injury Pattern Comments: Normal sinus rhythm rate 83 no acute signs of ND or ischemia. No dysrhythmia. Critical Care Time Critical Care Time: Yes Critical care time (excluding procedures): 30-74 minutes, Including time spent:,Discussing w/Patient &/or Family/Adolescent Counselor, Discussing w/Consultants, ArrangingAdmission or Transfer, Performing Direct Patient Care at Bedside and - (38 min) Discharge Plan Dx/Rx/DC Orders Clinical Impression: Chronic back pain, Chronic abdominal pain, Leukocytosis, Acute UTI, Acute hypotension, Acidosis, lactic, Sepsis Disposition [facility]: [facility] What to do if you have Problems For any increased pain, shortness of breath, bleeding, nausea or vomiting, chestpain, or any unexpected problems, contact your Primary Care Provider. Call [facility] ([phone]) or report to the closest Emergency Room. Call 911 if necessary. 10/29/24 0104 <Electronically signed by Alber Dunn MD> Cosigner Signature (if applicable): CC: No Primary Care Physician ~ Signed [facility] Work Phone: [phone]) 958-270103-03-2025 Procedure note* Joey Huang DO - 10/04/2024 5:17 PM ESTAssociated Order(s): Paracentesis Post-Procedure Diagnose(s): Other ascites Paracentesis Date/Time: 10/04/2024 5:17 PM Performed by: Joey Huang DO Authorized by: Joey Huang DO Consent: Consent obtained: Written Consent given by: Patient Risks, benefits, and alternatives were discussed: yes Risks discussed: Bleeding, bowel perforation and infection Alternatives discussed: No treatment Hull protocol: Procedure explained and questions answered to [...] Adhesive bandage Post-procedure details: Procedure completion: Tolerated [facility] Work Phone: 1(212) 879-113503-03-2025 Procedure note* Joey Huang DO - 10/04/2024 5:17 PM ESTAssociated Order(s): Paracentesis Post-Procedure Diagnose(s): Other ascites Paracentesis Date/Time: 10/04/2024 5:17 PM Performed by: Joey Huang DO Authorized by: Joey Huang DO Consent: Consent obtained: Written Consent given by: Patient Risks, benefits, and alternatives were discussed: yes Risks discussed: Bleeding, bowel perforation and infection Alternatives discussed: No treatment Hull protocol: Procedure explained and questions answered to [...] details: Procedure completion: Tolerated [facility] Phone: 1(527) 175-174603-03-2025 Consult note* Joey Huang DO - 10/04/2024 5:13 PM EST Reason For Consult Ascites History Of Present Illness Franklin Wiggins is a 59 y.o. male presenting with abdominal pain. He presented to the emergency room from [facility] secondary to increasing abdominal girth pain and ascites He was recently drained at [facility] for his ascites His abdomen [...] call Assessment & Plan Joey Huang DO [facility] Work Phone: 1(616) 580-700403-03-2025 Consult note* Joey Huang DO - 10/04/2024 5:13 PM EST Reason For Consult Ascites History Of Present Illness Franklin Wiggins is a 59 y.o. male presenting with abdominal pain. He presented to the emergency room from [facility] secondary to increasing abdominal girth pain and ascites He was recently drained at [facility] for his ascites His abdomen [...] Plan Joey Huang DO documented in this [facility] Work Phone: [phone]) 494-262203-03-2025 Physician Emergency department Note* Sriram Oleary PA-C [...] Abnormality Status --------- ------ Urinalysis with Reflex C...[[id number]] Extra Urine Toney Tube[[id number]] Please view results for these tests on the individual orders. URINALYSIS WITH REFLEX CULTURE AND MICROSCOPIC EXTRA URINE TONEY TUBE PH, BODY FLUID LACTATE DEHYDROGENASE, BODY FLUID Narrative: The following orders were created for panel order Lactate Dehydrogenase, Body Fluid. Procedure Abnormality Status --------- ------ Lactate Dehydrogenase, B...[[id number]] In process Please view results for these tests on the individual orders. GLUCOSE, BODY FLUID Narrative: The following orders were created for panel order Glucose, Body Fluid. Procedure Abnormality Status --------- ------ Glucose, Body Fluid[[id number]] In process Please view results for these tests on the individual orders. PROTEIN, TOTAL, BODY FLUID Narrative: The following orders were created for panel order Protein, Total, Body Fluid. Procedure Abnormality Status --------- ------ Protein, Total, Body Fluid[[id number]] In process Please view results for these tests on the individual orders. BODY FLUID CELL COUNT WITH DIFFERENTIAL Narrative: The following orders were created for panel order Body Fluid Cell Count With Differential. Procedure Abnormality Status --------- ------ Body Fluid Cell Count[[id number]] In process Body Fluid Differential[[id number]] In process Please view results for these tests on the individual orders. ALBUMIN, BODY FLUID Narrative: The following orders were created for panel order Albumin, Body Fluid. Procedure Abnormality Status --------- ------ Albumin, Body Fluid[[id number]] In process Please view results for these [...] Yohana Huang 10/04/2024 2:28 PM Dictation workstation: [id number] Procedures Medical Decision Making Patient is a 59-year-old male with a hx of cirrhosis who presents to the emergency department with a chief complaint of abdominal pain from [facility]. He reports increased abdominal pain that he describes as generalized, states that his abdomen is distended. Recently had a paracentesis performed at [facility] on September 29. Patient reports [...] type (Multi) Sriram Oleary PA-C 10/04/24 1737 [facility] Work Phone: 1(730) 535-805303-03-2025 Emergency department Note* Sriram Oleary PA-C - [...] Abnormality Status --------- ------ Urinalysis with Reflex C...[[id number]] Extra Urine Toney Tube[[id number]] Please view results for these tests on the individual orders. URINALYSIS WITH REFLEX CULTURE AND MICROSCOPIC EXTRA URINE TONEY TUBE PH, BODY FLUID LACTATE DEHYDROGENASE, BODY FLUID Narrative: The following orders were created for panel order Lactate Dehydrogenase, Body Fluid. Procedure Abnormality Status --------- ------ Lactate Dehydrogenase, B...[[id number]] In process Please view results for these tests on the individual orders. GLUCOSE, BODY FLUID Narrative: The following orders were created for panel order Glucose, Body Fluid. Procedure Abnormality Status --------- ------ Glucose, Body Fluid[[id number]] In process Please view results for these tests on the individual orders. PROTEIN, TOTAL, BODY FLUID Narrative: The following orders were created for panel order Protein, Total, Body Fluid. Procedure Abnormality Status --------- ------ Protein, Total, Body Fluid[[id number]] In process Please view results for these tests on the individual orders. BODY FLUID CELL COUNT WITH DIFFERENTIAL Narrative: The following orders were created for panel order Body Fluid Cell Count With Differential. Procedure Abnormality Status --------- ------ Body Fluid Cell Count[[id number]] In process Body Fluid Differential[[id number]] In process Please view results for these tests on the individual orders. ALBUMIN, BODY FLUID Narrative: The following orders were created for panel order Albumin, Body Fluid. Procedure Abnormality Status --------- ------ Albumin, Body Fluid[[id number]] In process Please view results for these [...] Yohana Huang 10/04/2024 2:28 PM Dictation workstation: [id number] Procedures Medical Decision Making Patient is a 59-year-old male with a hx of cirrhosis who presents to the emergency department with a chief complaint of abdominal pain from [facility]. He reports increased abdominal pain that he describes as generalized, states that his abdomen is distended. Recently had a paracentesis performed at [facility] on September 29. Patient reports [...] Oleary PA-C 10/04/24 1737 documented in this [facility] Work Phone: 1([phone]) 320-951402-26-2025 Evaluation note* Diagnosis Onset Date Resolution Status [...] 2 :16pm Umbilical hernia acute January 2:16pm [facility] Work Phone: 1([phone]) 421-832002-26-2025 Procedure note [facility] Medical Records Department [address] [place] [address] Operative Report 09/29/24 1048 MR#: [id number] Acct: [id number] Name: FRANKLIN WIGGINS Rep #:[id number] : 1965 59 From: Jasmine gusman KINESIOLOGY PROFESSOR KINESIOLOGY PROFESSOR-C PCP: Care Physician,No Primary Status :REG CLI Location: [place] Problems Associated Problem List Diagnoses (1) Abdominal ascites: Multi Select Codes Radiology Radiology US Procedures: 28737 Paracentesis Operative Report (Standard) Operative Information Date of Procedure: 09/29/24 Pre-Operative Diagnosis: Abdominal ascites Post-Operative Diagnosis: Abdominal ascites Surgery/Procedure Performed: Ultrasound-guided paracentesis strap setter: No Type of Anesthesia: Local Procedure Start [...] the peritoneal cavity was accessed with a 5-Ugandan paracentesis needle/catheter system. The trocar was removed. [...] MOE-Pastora Morocho; No Primary Care Physician; DIANE CALLAHAN~ Signed [facility]02-02-2025 Evaluation note* Diagnosis Onset Date Resolution Status [...] 6:06am Fall acute January 02, 2025 6:06am [facility] Work Phone: 1(359) 233-380902-02-2025 Evaluation note* Diagnosis Onset Date Resolution Status [...] M 2024 12:43am Chronic abdominal pain chronic [facility] 2024 12:43am Chronic back pain chronic [...] 2:16pm Sepsis acute January 09, 2025 2:16pm [facility] Work Phone: [phone] Evaluation note* Diagnosis Onset Date Resolution Status [...] inactive u ace2024 1:46am Hepatic encephalopathy inactive bru2024 1:46am Hyperbilirubinemia inactive 2024 1:46am Hypotension inactive September 05, 2024 1:46am 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) inactive September 05 1:46am Obesity (BMI 30-39.9) inactive Sep ru2024 1:46am ABBY on CPAP inactive September 05, 2024 1:46am Cirrhosis of liver deleted 2024 1:46am Abdominal ascites acute 2024 9:35am [facility] Work Phone: 1([phone]) 217-394701-27-2025 Evaluation note* Diagnosis Onset Date Resolution Status [...] inactive 2024 1:46am Chronic hypotension inactive u 2024 1:46am Hepatic encephalopathy inactive 2024 1:46am Hyperbilirubinemia inactive 2024 1:46am Hypotension inactive September 05, 2024 1:46am 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) inactive September 05 1:46am Obesity (BMI 30-39.9) inactive b ru2024 1:46am ABBY on CPAP inactive September [...] 29 12:43am Chronic abdominal pain chronic [facility] 2024 12:43am Chronic back pain chronic October 032024 12:43am [facility] Work Phone: 1([phone]) [phone] Evaluation note* Diagnosis Onset Date Resolution Status [...] 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 (nonalcoholic steatohepatitis) inactive February 2nd, 2 025 1:46am Obesity (BMI 30-39.9) inactive Feb ruary 2024 1:46am ABBY on CPAP inactive September 05, 2024 1:46am Cirrhosis of liver deleted ry 2024 1:46am Abdominal ascites acute Februar [...] 29 12:43am Chronic abdominal pain chronic [facility] 2024 12:43am Chronic back pain chronic October 032024 12:43am [facility] Work Phone: [phone] 115-643401-27-2025 Evaluation note* Diagnosis Onset Date Resolution Status [...] liver deleted 2024 1:46am Abdominal ascites acute Februa2024 9:35am Clostridium difficile colitis acute October 29, 2024 12:43am History of uric acid staghor n calculus acute October 29, 2024 12:43am Hyponatremia acute October 29, 2024 12:43am Leukocytosis acute October 29, 2024 12:43am Obesity (BMI 30.0-34.9) acute M arch 2024 12:43am Chronic abdominal pain chronic [facility] 2024 12:43am Chronic back pain chronic [...] 4:28am Staghorn calculus acute November 032024 4:28am [facility] Work Phone: 1([phone]) [phone] Evaluation note* Diagnosis Onset Date Resolution Status [...] 2024 12:43am Chronic abdominal pain chronic [facility] 2024 12:43am Chronic back pain chronic [...] infection) resolv ed November 28, 2024 4:51pm [facility] Work Phone: Discharge summary Author Herberth Carlson [facility] Note Date/Time November 21, 2024 4:1 6am [facility] Medical Records Department [address] [place] [address] Emergency Department Summary 11/21/24 MR#: [id number] Acct: [id number] Name: FRANKLIN WIGGINS Rep #:[id number] : [...] discontinue his lactulose. He was recently admitted [facility] for cirrhosis and other issues, he [...] toilet after multiple attempts over couple hours. [facility] Medical History Diarrhea Sepsis Acidosis, lactic [...] (Auto) 68.7 Lymph % (Auto) 13.9 L Dade % (Auto) 9.2 Eos % (Auto) 7.2 [...] Sl Cldy Urine pH 6.0 Ur Specific Nunda 1.015 Urine Protein 500 H Urine Glucose [...] process. Follow-up to resolution recommended. Reading Location: [facility] Management Discussion w/another healthcare provider: Hospitalist Discharge [...] Primary [Primary Care Provider] - Print Language: Estonian Disposition Disposition: Acute Care Hospital [facility] What to do if you have Problems For any increased pain, shortness of breath, bleeding, nausea or vomiting, chestpain, or any unexpected problems, contact your Primary Care Provider. Call [facility] ([phone]) or report to the closest Emergency Room. Call 911 if necessary. 11/21/24 0416 <Electronically signed by Herberth Carlson MD> Cosigner Signature (if applicable): CC: No Primary Care Physician ~ Signed [facility] Work Phone: Discharge summary Author Mina Blood [facility] Note Date/Time December 30, 2024 5:19a m [facility] Medical Records Department [address] [place] [address] Emergency Department Summary 12/30/24 MR#: [id number] Acct: [id number] Name: FRANKLIN WIGGINS Rep #:[id number] : [...] recent trauma prior to the pain beginning. [facility] Medical History Weakness Diarrhea Sepsis Acidosis, [...] mg tablet (Xifaxan) 550 mg PO BID [facility] ea #60 tabs 09/02/24 11/28/24 Rx insulin [...] (Auto) 69.7 Lymph % (Auto) 14.0 L Dade % (Auto) 9.1 Eos % (Auto) 6.2 [...] Clarity Cloudy Urine pH 6.5 Ur Specific Nunda 1.010 Urine Protein 100 H Urine Glucose [...] No evidence of acute disease. Reading Location: [facility] Chest x-ray as interpreted by the [...] you have any further concerns Print Language: Estonian Disposition Disposition: Home, Self Care What to do if you have Problems For any increased pain, shortness of breath, bleeding, nausea or vomiting, chestpain, or any unexpected problems, contact your Primary Care Provider. Call [facility] ([phone]) or report to the closest Emergency Room. Call 911 if necessary. 12/30/24 0519 <Electronically signed by Mina Blood DO> Cosigner Signature (if applicable): CC: YG Elias ~ Signed [facility] Work Phone: Discharge summary Author Roddy Reeves [facility] Note Date/Time January 02, 2025 6:00a m [facility] Medical Records Department [address] [place] [address] Emergency Department Summary 01/02/25 MR#: [id number] Acct: [id number] Name: FRANKLIN WIGGINS Rep #:[id number] : [...] was here recently and was sent home. [facility] Medical History Weakness Diarrhea Sepsis Acidosis, [...] mg tablet (Xifaxan) 550 mg PO BID [facility] ea #60 tabs 09/02/24 11/28/24 Rx insulin [...] Patient following commands that he was at [facility] that wewere in the end [...] (Auto) 68.0 Lymph % (Auto) 12.2 L Dade % (Auto) 11.9 H Eos % (Auto) [...] Clarity Turbid Urine pH 6.0 Ur Specific Nunda 1.015 Urine Protein 100 H Urine Glucose [...] insufficiency fracture again noted, unchanged. Reading Location: [facility] Brain CT 01/02/25 03:55 IMPRESSION: No intracranial hemorrhage, mass effect or calvarial fracture. Moderate volume loss, atrophy again noted. Mild left maxillary sinus disease appears mildly decreased from the prior study. Reading Location: [facility] Cervical Spine CT 01/02/25 03:55 IMPRESSION: No fracture or malalignment. Multilevel spondylosis/discogenic change greatest at C5-6 Reading Location: [facility] Discharge Plan Triage Chief Complaint: Weakness [...] NP-C [Primary Care Provider] - Print Language: Estonian Disposition Disposition: [facility] What to do if you have Problems For any increased pain, shortness of breath, bleeding, nausea or vomiting, chestpain, or any unexpected problems, contact your Primary Care Provider. Call [facility] ([phone]) or report to the closest Emergency Room. Call 911 if necessary. 01/02/25 0600 <Electronically signed by Roddy Reeves DO> Cosigner Signature (if applicable): CC: YG Elias ~ Signed [facility] Work Phone: Discharge summary Author Mina [facility] Note Date/Time February 08, 2025 3:03a m [facility] Medical Records Department [address] [place] [address] Emergency Department Summary 02/08/25 MR#: [id number] Acct: [id number] Name: FRANKLIN WIGGINS Rep #:[id number] : [...] bouts of constipation fevers chills or dysuria. [facility] Medical History (Updated 02/08/25 @ 03:03 [...] surgery as fat necrosis is a nonemergent etx-crwo-oteicjktcgo process. The patient will be given pain [...] 72.8 H Lymph % (Auto) 12.8 L Dade % (Auto) 8.1 Eos % (Auto) 5.4 [...] double-J stent in place. Anasarca. Reading Location: [place] [address] Discharge Plan Triage Chief Complaint: Abd Pain [...] Ambulatory Orders: Paracentesis with US (Routine) Facility: [facility] - Location: [facility] Ordered By: Dr. Mina Blood Primary Care [...] you have any further concerns. Print Language: Estonian Disposition Disposition: Home, Self Care What to do if you have Problems For any increased pain, shortness of breath, bleeding, nausea or vomiting, chestpain, or any unexpected problems, contact your Primary Care Provider. Call [facility] ([phone]) or report to the closest Emergency Room. Call 911 if necessary. 02/08/25 0303 <Electronically signed by Mina Blood DO> Cosigner Signature (if applicable): CC: Dr. Jerald Sherwood MD ~ Signed [facility] Work Phone: Evaluation note* Diagnosis Other ascites- Primary Abdominal pain, generalized Cirrhosis of liver with ascites, unspecified hepatic cirrhosis type (Multi) Peripheral edema Edema Coagulopathy (Multi) Other and unspecified coagulation defects Hyperbilirubinemia Disorders of bilirubin excretion documented in this encounter [facility] Work Phone: Evaluation note* Diagnosis Metabolic dysfunction-associated steatohepatitis (MASH)- Primary [facility] Diagnosis Liver transplant candidate- Primary Metabolic dysfunction-associated steatohepatitis (MASH) [facility]- [facility]- Primary Pre-operative clearance Preoperative examination, unspecified [facility] Screening for genitourinary condition Screening for other and unspecified genitourinary condition [facility] Buster Fuchs [facility] Note Date/Time January 02, 2025 6:44a m [facility] Medical Records Department [address] [place] [address] H&P Exam - Hospitalist 01/02/25 0556 MR#: [id number] Acct: [id number] Name: FRANKLIN WIGGINS Rep #:[id number] : 1965 59 From: Buster duarte MD PCP: Josy Elias, KINESIOLOGY PROFESSOR-C Status:ADM I N Location: [place] [address] HPI - General General Date of Admission: [...] that time he was transferred to [facility] 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 Was not considered to be a liver transplant candidate and was placed on anticoagulation. He has had a couple of readmissions for weakness and debility. [place] to possibly have aUTI given a staghorn [...] receiving potassium infusion in the ER. [facility] Medical History Weakness Diarrhea Sepsis [...] (Auto) 68.0, Lymph % (Auto) 12.2 L, Dade % (Auto) 11.9 H, Eos % (Auto) [...] insufficiency fracture again noted, unchanged. Reading Location: [facility] Brain CT 01/02/25 03:55 IMPRESSION: No intracranial hemorrhage, mass effect or calvarial fracture. Moderate volume loss, atrophy again noted. Mild left maxillary sinus disease appears mildly decreased from the prior study. Reading Location: [facility] Cervical Spine CT 01/02/25 03:55 IMPRESSION: No fracture or malalignment. Multilevel spondylosis/discogenic change greatest at C5-6 Reading Location: [facility] Assessment & Plan Assessment/Plan (1) Fall: [...] once verified Charges/Coding Visit Charges Inpatient E&M: 94836 Init Hosp L2 01/02/25 0644 <Electronically signed by Buster Fuchs MD> Cosigner Signature (if applicable): CC: YG Elias; Dr. Buster Fuchs MD~ Signed [facility] Work Phone: Hospital Discharge instructions* Attachments The following attachments cannot be sent through Care Everywhere. * Cirrhosis (Estonian) * Abdominal pain (Estonian) [facility] in [facility] Work Phone: Hospital Discharge instructions Additional [...] the ER should you have any further concernsWooHolmes [facility] Work Phone: Hospital Discharge instructionsAdditional [...] the ER should you have any further concerns.[facility] Work Phone: Hospital Discharge instructionsAdditional Instructions Thank you for trusting us with your care today! Please take Tylenol (2 pills, 650 mg), ibuprofen (2 pills, 400 mg) every 6 hours as needed for pain and fever control. Please return to the emergency department if your symptoms change or worsen. Please follow with your primary care physician for further outpatient evaluation and management.[facility] Work Phone: Hospital Discharge instructionsAdditional Instructions Take your short acting insulin and long-acting insulin as home as prescribed, you may need to give additional units if it continues to run high. Contact your hospice group.[facility] Work Phone: Reason for referral (narrative)No reason for referral information availableWUniversity Hospitals [facility] Work Phone: Summary Purpose Family History No [...] Will No August 21 2:51pm Power of Tool Crib Clerk No August 21, 2024 2:51pm Living Will No August 30 12:39am Power of Tool Crib Clerk No August 30, 2024 12:39am Living Will No September 05 4:42am Power of Tool Crib Clerk No September 05, 2024 4:42am Advance Directive Response Recorded Date/ Time Living Will No August 21 2:51pm Do you have a Healthcare Power of Tool Crib Clerk? No August 21, 2024 2:51pm Living Will No August 30 12:39am Do you have a Healthcare Power of Tool Crib Clerk? No August 30, 2024 12:39am Living Will No September 05 4:42am Do you have a Healthcare Power of Tool Crib Clerk? No September 05, 2024 4:42am Living Will No October 28, 2024 5:24pm Do you have a Healthcare Power of Tool Crib Clerk? No October 28, 2024 5:24pm Advance Directive Response Recorded Date/ Time Living Will No August 21 2:51pm Do you have a Healthcare Power of Tool Crib Clerk? No August 21, 2024 2:51pm Living Will No August 30 12:39am Do you have a Healthcare Power of Tool Crib Clerk? No August 30, 2024 12:39am Living Will No September 05 4:42am Do you have a Healthcare Power of Tool Crib Clerk? No September 05, 2024 4:42am Living Will No October 29, 2024 1:46am Do you have a Healthcare Power of Tool Crib Clerk? No October 29, 2024 1:46am Date Activated Date Inactivated Comments 11/11/2024 7:22 AM Question Answer Comments Full Code Order Discussed With: Patient Date Activated Date Inactivated Comments 11/11/2024 7:22 AM Advance Directive Response Recorded Date/ Time Living Will No August 21 2:51pm Do you have a Healthcare Power of Tool Crib Clerk? No August 21, 2024 2:51pm Living Will No August 30 12:39am Do you have a Healthcare Power of Tool Crib Clerk? No August 30, 2024 12:39am Living Will No September 05 4:42am Do you have a Healthcare Power of Tool Crib Clerk? No September 05, 2024 4:42am Living Will No October 29, 2024 1:46am Do you have a Healthcare Power of Tool Crib Clerk? No October 29, 2024 1:46am Living Will Yes November 21, 2024 1:32am Do you have a Healthcare Power of Tool Crib Clerk? Yes November 21, 2024 1:32am Name of Medical Power of Tool Crib Clerk anne Hernandez November 21, 2024 1:32am Advance Directive Response Recorded Date/ Time Living Will No August 21 2:51pm Do you have a Healthcare Power of Tool Crib Clerk? No August 21, 2024 2:51pm Living Will No August 30 12:39am Do you have a Healthcare Power of Tool Crib Clerk? No August 30, 2024 12:39am Living Will No September 05 4:42am Do you have a Healthcare Power of Tool Crib Clerk? No September 05, 2024 4:42am Living Will No October 29, 2024 1:46am Do you have a Healthcare Power of Tool Crib Clerk? No October 29, 2024 1:46am Living Will Yes November 21, 2024 5:32am Do you have a Healthcare Power of Tool Crib Clerk? Yes November 21, 2024 5:32am Name of Medical Power of Tool Crib Clerk anne Hernandez November 21, 2024 5:32am Do you have a Healthcare Power of Tool Crib Clerk? No November 28, 2024 5:49pm Advance Directive Response Recorded Date/ Time Living Will No August 30 12:39am Do you have a Healthcare Power of Tool Crib Clerk? No August 30, 2024 12:39am Living Will No September 05 4:42am Do you have a Healthcare Power of Tool Crib Clerk? No September 05, 2024 4:42am Living Will No October 29, 2024 1:46am Do you have a Healthcare Power of Tool Crib Clerk? No October 29, 2024 1:46am Living Will Yes November 21, 2024 5:32am Do you have a Healthcare Power of Tool Crib Clerk? Yes November 21, 2024 5:32am Name of Medical Power of Tool Crib Clerk anne Hernandez November 21, 2024 5:32am Do you have a Healthcare Power of Tool Crib Clerk? No November 28, 2024 5:49pm Advance Directive Response Recorded Date/ Time Living Will No August 30 12:39am Do you have a Healthcare Power of Tool Crib Clerk? No August 30, 2024 12:39am Living Will No September 05 4:42am Do you have a Healthcare Power of Tool Crib Clerk? No September 05, 2024 4:42am Living Will No October 29, 2024 1:46am Do you have a Healthcare Power of Tool Crib Clerk? No October 29, 2024 1:46am Living Will Yes November 21, 2024 5:32am Do you have a Healthcare Power of Tool Crib Clerk? Yes November 21, 2024 5:32am Name of Medical Power of Tool Crib Clerk anne Hernandez November 21, 2024 5:32am Do you have a Healthcare Power of Tool Crib Clerk? No November 28, 2024 5:49pm Do you have a Healthcare Power of Tool Crib Clerk? No December 26, 2024 10:02am Advance Directive Response Recorded Date/ Time Living Will No August 30 12:39am Do you have a Healthcare Power of Tool Crib Clerk? No August 30, 2024 12:39am Living Will No September 05 4:42am Do you have a Healthcare Power of Tool Crib Clerk? No September 05, 2024 4:42am Living Will No October 29, 2024 1:46am Do you have a Healthcare Power of Tool Crib Clerk? No October 29, 2024 1:46am Living Will Yes November 21, 2024 5:32am Do you have a Healthcare Power of Tool Crib Clerk? Yes November 21, 2024 5:32am Name of Medical Power of Tool Crib Clerk anne Hernandez November 21, 2024 5:32am Do you have a Healthcare Power of Tool Crib Clerk? No November 28, 2024 5:49pm Do you have a Healthcare Power of Tool Crib Clerk? No December 26, 2024 10:02am Do you have a Healthcare Power of Tool Crib Clerk? No December 30, 2024 1:06am Advance Directive Response Recorded Date/ Time Do you have a Healthcare Power of Tool Crib Clerk? No January 02, 2025 2:59am Living Will No September 05 4:42am Do you have a Healthcare Power of Tool Crib Clerk? No September 05, 2024 4:42am Living Will No October 29, 2024 1:46am Do you have a Healthcare Power of Tool Crib Clerk? No October 29, 2024 1:46am Living Will Yes November 21, 2024 5:32am Do you have a Healthcare Power of Tool Crib Clerk? Yes November 21, 2024 5:32am Name of Medical Power of Tool Crib Clerk anne Hernandez November 21, 2024 5:32am Do you have a Healthcare Power of Tool Crib Clerk? No November 28, 2024 5:49pm Do you have a Healthcare Power of Tool Crib Clerk? No December 26, 2024 10:02am Do you have a Healthcare Power of Tool Crib Clerk? No December 30, 2024 1:06am Advance Directive Response Recorded Date/ Time Do you have a Healthcare Power of Tool Crib Clerk? No January 02, 2025 8:14am Living Will No September 05 4:42am Do you have a Healthcare Power of Tool Crib Clerk? No September 05, 2024 4:42am Living Will No October 29, 2024 1:46am Do you have a Healthcare Power of Tool Crib Clerk? No October 29, 2024 1:46am Living Will Yes November 21, 2024 5:32am Do you have a Healthcare Power of Tool Crib Clerk? Yes November 21, 2024 5:32am Name of Medical Power of Tool Crib Clerk anne Hernandez November 21, 2024 5:32am Do you have a Healthcare Power of Tool Crib Clerk? No November 28, 2024 5:49pm Do you have a Healthcare Power of Tool Crib Clerk? No December 26, 2024 10:02am Do you have a Healthcare Power of Tool Crib Clerk? No December 30, 2024 1:06am Advance Directive Response Recorded Date/ Time Do you have a Healthcare Power of Tool Crib Clerk? No January 02, 2025 8:14am Living Will No September 05 4:42am Do you have a Healthcare Power of Tool Crib Clerk? No September 05, 2024 4:42am Living Will No October 29, 2024 1:46am Do you have a Healthcare Power of Tool Crib Clerk? No October 29, 2024 1:46am Living Will Yes November 21, 2024 5:32am Do you have a Healthcare Power of Tool Crib Clerk? Yes November 21, 2024 5:32am Name of Medical Power of Tool Crib Clerk anne Hernandez November 21, 2024 5:32am Do you have a Healthcare Power of Tool Crib Clerk? No November 28, 2024 5:49pm Do you have a Healthcare Power of Tool Crib Clerk? No December 26, 2024 10:02am Do you have a Healthcare Power of Tool Crib Clerk? No December 30, 2024 1:06am Do you have a Healthcare Power of Tool Crib Clerk? No January 09, 2025 10:10am Advance Directive Response Recorded Date/ Time Do you have a Healthcare Power of Tool Crib Clerk? No January 02, 2025 8:14am Living Will No October 29, 2024 1:46am Do you have a Healthcare Power of Tool Crib Clerk? No October 29, 2024 1:46am Living Will Yes November 21, 2024 5:32am Do you have a Healthcare Power of Tool Crib Clerk? Yes November 21, 2024 5:32am Name of Medical Power of Tool Crib Clerk anne Hernandez November 21, 2024 5:32am Do you have a Healthcare Power of Tool Crib Clerk? No November 28, 2024 5:49pm Do you have a Healthcare Power of Tool Crib Clerk? No December 26, 2024 10:02am Do you have a Healthcare Power of Tool Crib Clerk? No December 30, 2024 1:06am Do you have a Healthcare Power of Tool Crib Clerk? No January 09, 2025 3:31pm Advance Directive Response Recorded Date/ Time Do you have a Healthcare Power of Tool Crib Clerk? No January 02, 2025 8:14am Do you have a Healthcare Power of Tool Crib Clerk? No January 28, 2025 3:02am Living Will No October 29, 2024 1:46am Do you have a Healthcare Power of Tool Crib Clerk? No October 29, 2024 1:46am Living Will Yes November 21, 2024 5:32am Do you have a Healthcare Power of Tool Crib Clerk? Yes November 21, 2024 5:32am Name of Medical Power of Tool Crib Clerk anne Hernandez November 21, 2024 5:32am Do you have a Healthcare Power of Tool Crib Clerk? No November 28, 2024 5:49pm Do you have a Healthcare Power of Tool Crib Clerk? No December 26, 2024 10:02am Do you have a Healthcare Power of Tool Crib Clerk? No December 30, 2024 1:06am Do you have a Healthcare Power of Tool Crib Clerk? No January 09, 2025 3:31pm Advance Directive Response Recorded Date/ Time Do you have a Healthcare Power of Tool Crib Clerk? No January 02, 2025 8:14am Do you have a Healthcare Power of Tool Crib Clerk? No January 28, 2025 3:02am Living Will No October 29, 2024 1:46am Do you have a Healthcare Power of Tool Crib Clerk? No October 29, 2024 1:46am Living Will Yes November 21, 2024 5:32am Do you have a Healthcare Power of Tool Crib Clerk? Yes November 21, 2024 5:32am Name of Medical Power of Tool Crib Clerk anne Hernandez November 21, 2024 5:32am Do you have a Healthcare Power of Tool Crib Clerk? No November 28, 2024 5:49pm Do you have a Healthcare Power of Tool Crib Clerk? No May 25th, 2025 10:02am Do you have a Healthcare Power of Tool Crib Clerk? No December 30, 2024 1:06am Do you have a Healthcare Power of Tool Crib Clerk? No January 09, 2025 3:31pm Do you have a Healthcare Power of Tool Crib Clerk? No February 07, 2025 10:20pm Advance Directive Response Recorded Date/ Time Do you have a Healthcare Power of Tool Crib Clerk? No January 02, 2025 8:14am Do you have a Healthcare Power of Tool Crib Clerk? No January 28, 2025 3:02am Living Will No October 29, 2024 1:46am Do you have a Healthcare Power of Tool Crib Clerk? No October 29, 2024 1:46am Living Will Yes November 21, 2024 5:32am Do you have a Healthcare Power of Tool Crib Clerk? Yes November 21, 2024 5:32am Name of Medical Power of Tool Crib Clerk anne Hernandez November 21, 2024 5:32am Do you have a Healthcare Power of Tool Crib Clerk? No November 28, 2024 5:49pm Do you have a Healthcare Power of Tool Crib Clerk? No December 26, 2024 10:02am Do you have a Healthcare Power of Tool Crib Clerk? No December 30, 2024 1:06am Do you have a Healthcare Power of Tool Crib Clerk? No January 09, 2025 3:31pm Do you have a Healthcare Power of Tool Crib Clerk? No February 07, 2025 10:20pm Do you have a Healthcare Power of Tool Crib Clerk? No February 13, 2025 4:40pm Advance Directive Response Recorded Date/ Time Do you have a Healthcare Power of Tool Crib Clerk? No January 02, 2025 8:14am Do you have a Healthcare Power of Tool Crib Clerk? No January 28, 2025 3:02am Living Will No October 29, 2024 1:46am Do you have a Healthcare Power of Tool Crib Clerk? No October 29, 2024 1:46am Living Will Yes November 21, 2024 5:32am Do you have a Healthcare Power of Tool Crib Clerk? Yes November 21, 2024 5:32am Name of Medical Power of Tool Crib Clerk anne Hernandez November 21, 2024 5:32am Do you have a Healthcare Power of Tool Crib Clerk? No November 28, 2024 5:49pm Do you have a Healthcare Power of Tool Crib Clerk? No December 26, 2024 10:02am Do you have a Healthcare Power of Tool Crib Clerk? No December 30, 2024 1:06am Do you have a Healthcare Power of Tool Crib Clerk? No January 09, 2025 3:31pm Do you have a Healthcare Power of Tool Crib Clerk? No February 07, 2025 10:20pm Do you have a Healthcare Power of Tool Crib Clerk? No February 13, 2025 4:40pm Do you have a Healthcare Power of Tool Crib Clerk? No February 16, 2025 6:30pm Advance Directive Response Recorded Date/ Time Do you have a Healthcare Power of Tool Crib Clerk? No January 02, 2025 8:14am Do you have a Healthcare Power of Tool Crib Clerk? No January 28, 2025 3:02am Living Will No October 29, 2024 1:46am Do you have a Healthcare Power of Tool Crib Clerk? No October 29, 2024 1:46am Living Will Yes November 21, 2024 5:32am Do you have a Healthcare Power of Tool Crib Clerk? Yes November 21, 2024 5:32am Name of Medical Power of Tool Crib Clerk anne Hernandez November 21, 2024 5:32am Do you have a Healthcare Power of Tool Crib Clerk? No November 28, 2024 5:49pm Do you have a Healthcare Power of Tool Crib Clerk? No December 26, 2024 10:02am Do you have a Healthcare Power of Tool Crib Clerk? No December 30, 2024 1:06am Do you have a Healthcare Power of Tool Crib Clerk? No January 09, 2025 3:31pm Do you have a Healthcare Power of Tool Crib Clerk? No February 07, 2025 10:20pm Do you have a Healthcare Power of Tool Crib Clerk? No February 13, 2025 4:40pm Do you have a Healthcare Power of Tool Crib Clerk? No February 16, 2025 7:47pm Advance Directive Response Recorded Date/ Time Do you have a Healthcare Power of Tool Crib Clerk? No January 02, 2025 8:14am Do you have a Healthcare Power of Tool Crib Clerk? No January 28, 2025 3:02am Do you have a Healthcare Power of Tool Crib Clerk? No February 25, 2025 5:00pm Living Will No October 29, 2024 1:46am Do you have a Healthcare Power of Tool Crib Clerk? No October 29, 2024 1:46am Living Will Yes November 21, 2024 5:32am Do you have a Healthcare Power of Tool Crib Clerk? Yes November 21, 2024 5:32am Name of Medical Power of Tool Crib Clerk anne Hernandez November 21, 2024 5:32am Do you have a Healthcare Power of Tool Crib Clerk? No November 28, 2024 5:49pm Do you have a Healthcare Power of Tool Crib Clerk? No December 26, 2024 10:02am Do you have a Healthcare Power of Tool Crib Clerk? No December 30, 2024 1:06am Do you have a Healthcare Power of Tool Crib Clerk? No January 09, 2025 3:31pm Do you have a Healthcare Power of Tool Crib Clerk? No February 07, 2025 10:20pm Do you have a Healthcare Power of Tool Crib Clerk? No February 13, 2025 4:40pm Do you have a Healthcare Power of Tool Crib Clerk? No February 16, 2025 7:47pm Do you have a Healthcare Power of Tool Crib Clerk? No March 11, 2025 5:16pm Chief Complaint [...] 10:48am SEPSIS, UTI, DIARRHEA & ABDOMINAL PAIN [facility] 2024 12:43am Reason for Visit Admit Date [...] HYPOTENSION August 29, 2024 10:09pm HEPATIC ENCEPHALOPATHY, ISAEBL, HYPOTENSION August 30, 2024 7:58am HEPATIC ENCEPHALOPATHY, [...] 05, 2024 1 :46am Metabolic encephalopathy September 05, 025 1:46am ISABEL (acute kidney injury) September 05, [...] 1:46am SEPSIS WITH STAGHORN CALCULI September 4t 2024 [...] SEPSIS January 10, 2025 6:16p m SEPSIS Georgina 10th, 2025 7:22 am SEPSIS January 11, 2025 [...] Date SEPSIS, UTI, DIARRHEA & ABDOMINAL PAIN [facility] 2024 12:43am Weakness November 21, 2024 4:2 [...] January 28, 2025 7:00 am Hepatic encephalopathy Georgina 27th, 2025 7 :00am Umbilical hernia January 28, [...] Thrombus Procedures Evaluate and treat HOSP MAIN [id number] [place] [address] Phone: tel: Referral ID Status Reason Start Date Expiration Date Visits Re quested Visits Authorized [id number] 1 1 Reason Comments Abdominal Pain Patient [...] dose 1235 (Given - Provid er: Bronwyn Adam, DAYSI) morphine injection 4 mg (COMPLETED) 4 mg, [...] On Fri10/04/24 at 1855, For 1 dose 1852 (Given - Provid er: Bronwyn Adam RN) [...] 2024 End: November 11, 2024 Yue Delgadillo KINESIOLOGY PROFESSOR, KINESIOLOGY PROFESSOR-C Other Provider Active St art: October 29, [...] Provider Active Start: November 07, 2024 Dr. Abler Dunn MD Emergency Provider Active S tart: [...] Sta rt: November 10, 2024 Yue Delgadillo KINESIOLOGY PROFESSOR, KINESIOLOGY PROFESSOR-C Other Provider Active St art: November 10, [...] Start: December 01, 2024 Dr. Rachel Joiner , Emergency Provider Active Start: December 01, 2024 [...] Member Role Status Dates Josy Tannhof , KINESIOLOGY PROFESSOR-C Primary Care Provider Active Start: December 07, 2024 End: December 07, 2024 Josy Pastorhof , KINESIOLOGY PROFESSOR-C Attending Provider Active Start: December 07, 2024 End: December 07, 2024 Team Status: Inactive Member Role Status Dates Josy Tannhof , KINESIOLOGY PROFESSOR-C Primary Care Provider Active Start: December 15, 2024 End: December 15, 2024 Josy Pastorhof , KINESIOLOGY PROFESSOR-C Attending Provider Active Start: December 15, 2024 End: December 15, 2024 Josy Pastorhof , KINESIOLOGY PROFESSOR-C Referring Provider Active Start: December 15, 2024 End: December 15, 2024 Team Status: Inactive Member Role Status Dates Josy Tannhof , KINESIOLOGY PROFESSOR-C Primary Care Provider Active Start: December 26, 2024 End: December 26, 2024 Dr. Boone Carvajal , DO Attending Provider Active Start: December 26, 2024 End: December 26, 2024 Dr. Boone Carvajal , DO Emergency Provider Active Start: December 26, 2024 End: December 26, 2024 Team Status: Inactive Member Role Status Dates Josy Tannhof , KINESIOLOGY PROFESSOR-C Primary Care Provider Active Start: December 30, 2024 End: December 30, 2024 Dr. Mina Blood , Attending Provider Active Start: December 30, 2024 End: December 30, 2024 Dr. Mina Blood , DO Emergency Provider Active Start: December 30, 2024 End: December 30, 2024 Team Status: Inactive Member Role Status Dates Josy Pastorhof , KINESIOLOGY PROFESSOR-C Primary Care Provider Active Start: January 02, [...] Active Member Role Status Dates Josy Elias KINESIOLOGY PROFESSOR-C Primary Care Provider Active Start: January 03, [...] Active Member Role Status Dates Josy Elias KINESIOLOGY PROFESSOR-C Primary Care Provider Active Start: January 04, [...] Active Member Role Status Dates Josy Elias KINESIOLOGY PROFESSOR-C Primary Care Provider Active Start: January 05, [...] Inactive Member Role Status Dates Josy Elias KINESIOLOGY PROFESSOR-C Primary Care Provider Active Start: January 09, [...] St art: January 10, 2025 Dr. Anel Caesy MD Other Provider Active Start: January 10, [...] Active Member Role Status Dates Josy Elias KINESIOLOGY PROFESSOR-C Primary Care Provider Active Start: January 11, [...] Active Member Role Status Dates Josy Elias KINESIOLOGY PROFESSOR-C Primary Care Provider Active Start: January 12, [...] Active Member Role Status Dates Josy Elias KINESIOLOGY PROFESSOR-C Primary Care Provider Active Start: January 13, [...] Active Member Role Status Dates Josy Elias KINESIOLOGY PROFESSOR-C Primary Care Provider Active Start: January 14, [...] Active Member Role Status Dates Josy Elias KINESIOLOGY PROFESSOR-C Primary Care Provider Active Start: January 16, [...] Start: August 30, 2024 Dr. Maria Guadalupe hSore MD Admit Provider Active St art: August [...] Active Start: September 06, 2024 Dr. Hill de Kyle , DO Admit Provider Active Start: September 06, 2024 Dr. Hill Caro , Other Provider Active Start: September 06, [...] t: September 06, 2024 Dr. Bola Meraz , Attending Provider Active S tart: September 06, [...] Active Star t: September 06, 2024 Dr. lEver Mancilla MD Other Provider [...] September 06, 2024 Dr. Mason Samano , DO Other Provider Active St art: September [...] Start: September 07, 2024 Dr. Rachel Joiner , Emergency Provider Active Start: September 07, 2024 Dr. Hill Caro , DO Admit Provider Active Start: September 07, [...] Other Provider Active Start: 2024 Jasmine Morocho KINESIOLOGY PROFESSOR, KINESIOLOGY PROFESSOR-C Attending Provider Active Start: September 29, 2024 Leather Stitcher Relationship Specialty Start Date End Date Maurice Rincon MD [address] [place] [address] PCP - General Internal Medicine 09/21/24 Team [...] Pena Primary Care Provider Active Start: December 30, 2024 End: December 30, 2024 Dr. Mina Blood , Emergency Provider Active Start: December 30, 2024 End: December 30, 2024 Team Status: Active Member Role Status Dates Josy Tannhof , KINESIOLOGY PROFESSOR-C Primary Care Provider Active Start: January 02, 2025 Dr. Roddy Reeves , Emergency Provider Active Start: January 02, 2025 Dr. Buster Fuchs MD Admit Provider Active Start: January 02, 2025 Dr. Buster Fuchs MD Attending Provider Active Start: January 02, 2025 Dr. Buster Fuchs MD Other Provider Active Start: January 02, 2025 Team Status: Active Member Role Status Dates Josy Elias KINESIOLOGY PROFESSOR-C Primary Care Provider Active Start: January 09, 2025 Dr. Breann Mendez DO Emergency Provider Active S tart: January 09, 2025 Dr. Yaritza Leo DO Admit Provider Active Start : January 09, 2025 Dr. Yaritza Leo DO Attending Provider Active S tart: January 09, 2025 Team Status: Active Member Role Status Dates Josy Elias KINESIOLOGY PROFESSOR-C Primary Care Provider Active Start: January 11, [...] 2024 End: November 11, 2024 Yue Delgadillo KINESIOLOGY PROFESSOR, KINESIOLOGY PROFESSOR-C Other Provider Active St art: October 29, 2024 End: November 11, 2024 Dr. Gwendolyn Logan MD Other Provider Active Sta rt: October 29, 2024 Dr. Stella Mosher MD Other Provider Active Sta rt: October 29, 2024 Dr. Pato Venegas MD Other Provider Active Star t: October 29, 2024 Dr. Elver Maniclla MD Other Provider Active St art: October [...] Provider Active Start: October 29, 2024 Dr. Bhartahi Trujillo MD Other Provider Active Start : [...] Active Start: November 04, 2024 Dr. Foster Rasocn MD Other Provider Active Start: November 04, [...] Sta rt: November 10, 2024 Yue Delgadillo KINESIOLOGY PROFESSOR, KINESIOLOGY PROFESSOR-C Other Provider Active St art: November 10, [...] Active Start: December 01, 2024 Dr. Kathie Pwoers MD Admit Provider Active Star t: December [...] Member Role/Relationship Status Dates Josy Elias , KINESIOLOGY PROFESSOR-C Primary Care Provider Active Start: December 07, 2024 End: December 07, 2024 Josy Elias , KINESIOLOGY PROFESSOR-C Attending Provider Active Start: December 07, 2024 End: December 07, 2024 Team Status: Inactive Member Role/Relationship Status Dates Josydominique Elias , KINESIOLOGY PROFESSOR-C Primary Care Provider Active Start: December 15, 2024 End: December 15, 2024 Josy Elias , KINESIOLOGY PROFESSOR-C Attending Provider Active Start: December 15, 2024 End: December 15, 2024 Josy Elias , KINESIOLOGY PROFESSOR-C Referring Provider Active Start: December 15, 2024 End: December 15, 2024 Team Status: Inactive Member Role/Relationship Status Dates Josy Elias , KINESIOLOGY PROFESSOR-C Primary Care Provider Active Start: December 26, 2024 End: December 26, 2024 Dr. Boone Carvajal DO Attending Provider Active Start: December 26, 2024 End: December 26, 2024 Dr. Boone Carvajal DO Emergency Provider Active Start: December 26, 2024 End: December 26, 2024 Team Status: Inactive Member Role/Relationship Status Dates Josy Elias , KINESIOLOGY PROFESSOR-C Primary Care Provider Active Start: December 30, 2024 End: December 30, 2024 Dr. Mina Blood DO Attending Provider Active Start: December 30, 2024 End: December 30, 2024 Dr. Mina Blood DO Emergency Provider Active Start: December 30, 2024 End: December 30, 2024 Team Status: Inactive Member Role/Relationship Status Dates Josy Elias , KINESIOLOGY PROFESSOR-C Primary Care Provider Active Start: January 02, [...] Active Member Role/Relationship Status Dates Josy Elias KINESIOLOGY PROFESSOR-C Primary Care Provider Active Start: January 03, [...] Active Member Role/Relationship Status Dates Josy Elias KINESIOLOGY PROFESSOR-C Primary Care Provider Active Start: January 04, [...] Active Member Role/Relationship Status Dates Josy Elias KINESIOLOGY PROFESSOR-C Primary Care Provider Active Start: January 05, [...] Inactive Member Role/Relationship Status Dates Josy Elias KINESIOLOGY PROFESSOR-C Primary Care Provider Active Start: January 09, [...] Active Member Role/Relationship Status Dates Josy Elias KINESIOLOGY PROFESSOR-C Primary Care Provider Active Start: January 11, [...] Active Member Role/Relationship Status Dates Josy Elias KINESIOLOGY PROFESSOR-C Primary Care Provider Active Start: January 13, [...] Active Member Role/Relationship Status Dates Josy Elias KINESIOLOGY PROFESSOR-C Primary Care Provider Active Start: January 16, [...] PenaC Primary Care Provider Active Start: January 17, [...] Pena Primary Care Provider Active Start: January 18, [...] Active Member Role/Relationship Status Dates Josy Elias KINESIOLOGY PROFESSOR-C Primary Care Provider Active Start: January 20, [...] rt: February 17, 2025 Dr. Niranjan Li DO [...] 2024 End: November 11, 2024 Dr. Hill eHrrmann MD Other Provider Active Start: October 29, [...] Daniel Garza MD Other Provider Active Start: M 2024 End: November 11, 2024 Dr. Zachariah Glover MD Other Provider Active Sta rt: October 29, 2024 End: November 11, 2024 Dr. Scott Weston , DO Other Provider Active Sta rt: October 29, 2024 End: November 11, 2024 Yue Delgadillo KINESIOLOGY PROFESSOR, KINESIOLOGY PROFESSOR-C Other Provider Active St art: October 29, 2024 End: November 11, 2024 Team Status: Active Member Role/Relationship Status Dates No Primary Care Physician Primary Care Provider Active Start: November 21, 2024 Dr. Herberth Carlson MD Emergency Provider Active Start: November 21, 2024 Dr. Jea Ash , Admit Provider [...] Provider Active Start: December 02, 2024 Dr. Katihe Powers MD Admit Provider Active Star t: [...] Member Role/Relationship Status Dates Josy Tannhof , KINESIOLOGY PROFESSOR-C Primary Care Provider Active Start: December 07, 2024 End: December 07, 2024 Josy Pastorhof , KINESIOLOGY PROFESSOR-C Attending Provider Active Start: December 07, 2024 End: December 07, 2024 Team Status: Inactive Member Role/Relationship Status Dates Josy Tannhof , KINESIOLOGY PROFESSOR-C Primary Care Provider Active Start: December 15, 2024 End: December 15, 2024 Josy Pastorhof , KINESIOLOGY PROFESSOR-C Attending Provider Active Start: December 15, 2024 End: December 15, 2024 Josy Tannhof , KINESIOLOGY PROFESSOR-C Referring Provider Active Start: December 15, 2024 End: December 15, 2024 Team Status: Inactive Member Role/Relationship Status Dates Josy Tannhof , KINESIOLOGY PROFESSOR-C Primary Care Provider Active Start: December 26, 2024 End: December 26, 2024 Dr. Boone Carvajal DO Attending Provider Active Start: December 26, 2024 End: December 26, 2024 Dr. Boone Carvajal DO Emergency Provider Active Start: December 26, 2024 End: December 26, 2024 Team Status: Inactive Member Role/Relationship Status Dates Josy Tannhof , KINESIOLOGY PROFESSOR-C Primary Care Provider Active Start: December 30, 2024 End: December 30, 2024 Dr. Mina Blood DO Attending Provider Active Start: December 30, 2024 End: December 30, 2024 Dr. Mina Blood DO Emergency Provider Active Start: December 30, 2024 End: December 30, 2024 Team Status: Inactive Member Role/Relationship Status Dates Josy Tannhof , KINESIOLOGY PROFESSOR-C Primary Care Provider Active Start: January 02, [...] Active Member Role/Relationship Status Dates Josy Elias KINESIOLOGY PROFESSOR-C Primary Care Provider Active Start: January 03, [...] Active Member Role/Relationship Status Dates Josy Elias KINESIOLOGY PROFESSOR-C Primary Care Provider Active Start: January 04, [...] Active Member Role/Relationship Status Dates Josy Elias KINESIOLOGY PROFESSOR-C Primary Care Provider Active Start: January 05, [...] Inactive Member Role/Relationship Status Dates Josy Elias KINESIOLOGY PROFESSOR-C Primary Care Provider Active Start: January 09, [...] Start : January 10, 2025 Dr. Betty rPuett MD Other Provider Active Star t: January [...] Provider Active Start: January 10, 2025 Dr. Lpuillo Robbins MD Other Provider Active Star t: [...] Active Member Role/Relationship Status Dates Josy Elias KINESIOLOGY PROFESSOR-C Primary Care Provider Active Start: January 11, [...] Active Member Role/Relationship Status Dates Josy Elias KINESIOLOGY PROFESSOR-C Primary Care Provider Active Start: January 11, [...] Active Member Role/Relationship Status Dates Josy Elias KINESIOLOGY PROFESSOR-C Primary Care Provider Active Start: January 12, [...] Active Member Role/Relationship Status Dates Josy Elias KINESIOLOGY PROFESSOR-C Primary Care Provider Active Start: January 13, [...] tart: January 29, 2025 Dr. Yaritza Leo DO Other Provider Active Start : January 29, 2025 Team Status: Active Member Role/Relationship Status Dates Dr. Danny Hutton DO Emergency Provider Activ e Start: January 30, 2025 Dr. Jerald Sherwood MD Primary Care Provider Active Start: January 30, 2025 Dr. Boone Izquierdo , DO Admit Provider Active Star t: January 30, 2025 Dr. Boone Izquierdo , DO Other [...] January 31, 2025 Dr. Boone Izquierdo , DO Admit [...] tart: February 17, 2025 Dr. Jae Ash DO Admit Provider Active Start: February 17, 2025 Dr. Jae Ash DO Other Provider Active Start: February 17, 2025 Dr. Anurag Irene MD Attending Provider Active Start: February 17, 2025 Dr. Anurag Irene MD Other Provider Active Sta rt: February 17, 2025 Dr. Niranjan Friend , DO Other Provider Active St art: [...] Provider Active Sta rt: February 17, 2025 Josy Elias KINESIOLOGY PROFESSOR-C Primary Care Provider Active Start: February 17, 2025 Team Status: Inactive Member Role/Relationship Status Dates Joys Elias KINESIOLOGY PROFESSOR-C Primary Care Provider Active Start: February 24, 2025 End: February 25, 2025 Julita Glover Attending Provider Active Sta rt: February 24, 2025 End: February 25, 2025 Josy Elias KINESIOLOGY PROFESSOR-C Referring Provider Active Start: February 24, 2025 End: February 25, 2025 Josy Elias NP-C Other Provider Active Star t: February 24, 2025 End: February 25, 2025 Team Status: Active Member Role/Relationship Status Dates Josy Elias NP-C Primary Care Provider Active Start: February 25, 2025 Dr. Herberth Carlson MD Emergency Provider Active Start: February 25, 2025 Dr. Kathie Powers MD Attending Provider Active Start: February 25, 2025 Team Status: Inactive Member Role/Relationship Status Dates Josy Elias KINESIOLOGY PROFESSOR-C Primary Care Provider Active Start: February 25, [...] Member Role/Relationship Status Dates Josy Tannhof , KINESIOLOGY PROFESSOR-C Primary Care Provider Active Start: February 25, 2025 Dr. Herberth Carlson MD Emergency Provider Active Start: February 25, 2025 Dr. Kathie Powers MD Admit Provider Active Star t: February 25, 2025 Dr. Kathie Powers MD Other Provider Active Star t: February 25, 2025 Dr. Niranjan Li DO Attending Provider Active Start: February 25, 2025 Team Status: Active Member Role/Relationship Status Dates Josy Elias KINESIOLOGY PROFESSOR-C Primary Care Provider Active Start: February 26, [...] Active Member Role/Relationship Status Dates Josy Elias KINESIOLOGY PROFESSOR-C Primary Care Provider Active Start: February 27, [...] Active Member Role/Relationship Status Dates Josy Elias KINESIOLOGY PROFESSOR-C Primary Care Provider Active Start: March 04, 2025 MINDY CONTRERAS Attending Provider Active Start: [facility] 2024 MINDY CONTRERAS Referring Provider Active Start: [facility] 2024 Team Status: Inactive Member Role/Relationship Status Dates Josy Elias KINESIOLOGY PROFESSOR-C Primary Care Provider Active Start: March 10, 2025 End: March 10, 2025 Josy Elias KINESIOLOGY PROFESSOR-C Referring Provider Active Start: March 10, 2025 [...] section and content) DATE CREATED AUTHOR 10/10/2024 [facility] DATE CREATED AUTHOR AUTHOR'S ORGANIZ ATION 12/13/2024 [facility] DATE CREATED AUTHOR AUTHOR'S ORGANIZ ATION 02/18/2025 [facility] DATE CREATED AUTHOR AUTHOR'S ORGANIZ ATION 04/06/2025 [facility] Comments (unrecognize d section and content) In the event this informatio n is protected by the Federal Confidentiality of Alcohol and Drug Abuse Patient Records regulations: The Federal rules restrict any use of the information to criminally investigate or prosecute any alcohol or drug abuse patient.[facility] the event this information is protected by the Federal Confidentiality of Alcohol and Drug Abuse Patient Records regulations: The Federal rules restrict any use of the information to criminally investigate or prosecute any alcohol or drug abuse patient.[facility] the event this information is protected by the Federal Confidentiality of Alcohol and Drug Abuse Patient Records regulations: The Federal rules restrict any use of the information to criminally investigate or prosecute any alcohol or drug abuse patient.[facility] the event this information is protected by the Federal Confidentiality of Alcohol and Drug Abuse Patient Records regulations: The Federal rules restrict any use of the information to criminally investigate or prosecute any alcohol or drug abuse patient.[facility] the event this information is protected by the Federal Confidentiality of Alcohol and Drug Abuse Patient Records regulations: The Federal rules restrict any use of the information to criminally investigate or prosecute any alcohol or drug abuse patient.[facility] the event this information is protected by the Federal Confidentiality of Alcohol and Drug Abuse Patient Records regulations: The Federal rules restrict any use of the information to criminally investigate or prosecute any alcohol or drug abuse patient.[facility] Hospital[facility] the event this information is protected by the Federal Confidentiality of Alcohol and Drug Abuse Patient Records regulations: The Federal rules restrict any use of the information to criminally investigate or prosecute any alcohol or drug abuse patient.[facility] Hospital[facility] the event this information is protected by the Federal Confidentiality of Alcohol and Drug Abuse Patient Records regulations: The Federal rules restrict any use of the information to criminally investigate or prosecute any alcohol or drug abuse patient.[facility] Hospital[facility] the event this information is protected by the Federal Confidentiality of Alcohol and Drug Abuse Patient Records regulations: The Federal rules restrict any use of the information to criminally investigate or prosecute any alcohol or drug abuse patient.[facility] the event this information is protected by the Federal Confidentiality of Alcohol and Drug Abuse Patient Records regulations: The Federal rules restrict any use of the information to criminally investigate or prosecute any alcohol or drug abuse patient.[facility] HospitalIn the event this information is protected by the Federal Confidentiality of Alcohol and Drug Abuse Patient Records regulations: The Federal rules restrict any use of the information to criminally investigate or prosecute any alcohol or drug abuse patient.[facility] FOR RECORDS PERTAINING TO PATIENTS WHO [...] BE BASED ON THE PRIMARY CLINICAL RECORDS. [facility] provides no warranty or guarantee of the accuracy or completeness of information in this document.
[2025-04-08] MEDS: Pantoprazole Sodium 40 MG in 0.9% Normal Saline (100mL MB+) 100 ML 330 MG IV (00:58)
[2025-04-08 01:00] LABS: Procalcitonin 0.09 ng/mL (<=0.10)
[2025-04-08] MEDS: Insulin Glargine-YFGN 100 UNIT/ML Pen 30 UNIT SC ×2 (01:22→19:55)
--- OUTSIDE RECORDS SUMMARY | 2025-04-08 02:24 | XMS RPT_ITS | CCD ---
Author Organization [facility] Care Team Providers Care Cone Worker Name Role Phone Sergey HERNANDEZ, Maurice Soria Primary Care Provider Care Physician, No Primary Primary Care Provider Unavailable Anni NOYOLA, Dr. Delgado Attending Provider Dr. Danny Hutton DO Emergency Provider Dr. Luis Carlos Anderson DO Emergency Provider [phone] Mone HERNANDEZ, Dr. Maria Guadalupe Carlson Admit Provider [phone] Mone HERNANDEZ, Dr. Maria Guadalupe Carlson Referring Provider Mone HERNANDEZ, Dr. Maria Guadalupe Carlson Other Provider [phone] Rick Carlin DO Attending Provider Erin HERNANDEZ, Dr. Rocha Other Provider Zelalem HERNANDEZ, Dr. Coker Other Provider Dr. Christian Abdi MD Other Provider Dr. Juarez Baird MD Other Provider Dr. Bola Meraz DO Attending Provider Dr. Bola Meraz DO Other Provider Víctor HERNANDEZ, Dr. Hill Alcaraz Other Provider Ashli HERNANDEZ, Dr. Aguilar Other Provider [phone] Missael HERNANDEZ, Dr. Cotton Other Provider Ashely HERNANDEZ, Dr. Foote Other Provider Cassandra HERNANDEZ, Dr. Garvin Other Provider Yamil HERNANDEZ, Dr. Solis Other Provider Rojas HERNANDEZ, Dr. Enriquez Other Provider Seble HERNANDEZ, Dr. Hernández Other Provider [phone] Desmond HERNANDEZ, Dr. Snow Other Provider Unavailabl karma Venegas MD, Dr. Whyte Other Provider Laurent HERNANDEZ, Dr. Raya Other Provider Angely HERNANDEZ, Dr. Silver Other Provider Jazmyne NOYOLA, Dr. Cuevas Other Provider Carmela HERNANDEZ, Dr. Tam Other Provider Mallorie HERNANDEZ, Dr. Kelly Other Provider [phone] Nuzhat NOYOLA, Dr. Cooper Other Provider Rosendo HERNANDEZ, Dr. Wesley Other Provider Dylan HERNANDEZ, Dr. Colon Other Provider Raegan NOYOLA, Dr. Cabrera Other Provider Dr. Niranjan Li DO Attending Provider Dr. Rachel Joiner DO Emergency Provider Caro DO, Dr. Alejandre Admit Provider Unavail able Caro DO, Dr. Alejandre Other Provider Unavail able Teto HERNANDEZ, Dr. Osborn Other Provider Dr. Boone Izquierdo DO Attending Provider Dr. Jae Ash DO Other Provider Karena HERNANDEZ, Dr. Andre Other Provider Abiodun HERNANDEZ, Dr. Foster Rivas Other Provider Teto HERNANDEZ, Dr. Osborn Referring Provider Nomi HERNANDEZ, Dr. Douglas Other Provider [phone] Dr. Anurag Irene MD Attending Provider Dr. Jae Ash DO Attending Provider Timbo NOYOLA, Dr. Shook Other Provider FRANCESCOKarmaDIANE Attending Provider BILLKarmaDIANE Referring Provider BILLTREY ParadaA Other Provider Bailee HEADER UP-C, Jasmine Attending Provider Shaun HERNANDEZ, Dr. Campo [...] HERNANDEZ, Dr. Maria Guadalupe Carlson Other Provider Raegan NOYOLA, Dr. Cabrera Attending Provider [phone] Erin HERNANDEZ, Dr. Rocha Other Provider Zelalem HERNANDEZ, Dr. Coker Other Provider Trinidad HERNANDEZ, Dr. Gonzales Other Provider Oli HERNANDEZ, Dr. Pizarro Other Provider Dr. Bola Meraz DO Attending Provider Dr. Bola Meraz DO Other Provider Víctor HERNANDEZ, Dr. Hill Alcaraz Other Provider Ashli HERNANDEZ, Dr. Aguilar Other Provider Missael HERNANDEZ, Dr. Cotton Other Provider [phone] Ashely HERNANDEZ, Dr. Foote Other Provider Cassandra [...] DO, Dr. Alejandre Other Provider Unavail able Teto HERNANDEZ, Dr. [...] DO Other Provider BILLTREY ParadaA Attending Provider BILLKarma DIANE Referring Provider BILLKarma, DIANE Other Provider Bailee HEADER UP-C, Jasmine Attending Provider Shaun HERNANDEZ, Dr. Campo [...] Dr. Scott Weston DO Other Provider Elie HEADER UP-C, Yue Other Provider Dr. Hill Caro DO Referring Provider Unav ailable Shila HERNANDEZ, Dr. Buster Barr Attending Provider Shila HERNANDEZ, Dr. Buster Barr Referring Provider Dr. Hill Acuña MD Attending Provider Unavaila priscila Powers MD, Dr. Vázquez Other Provider Unavailable Primary Care Provider Unavailyanick Carlson MD, Dr. Kevin Emergency Provider Dr. Jae Ash DO Admit Provider [phone] Gio HERNANDEZ, Dr. Vázquez Admit Provider Tannhof HEADER UP-C, Josy Primary Care Provider Tannhof HEADER UP-C, Josy Attending Provider KATHIE POWERS Referring Unavailable DAY PRICE Admitting Unavailable YOUNG CRUZ Attending Unavailable Care Physician, No Primary Primary Care Provider Unavailable Curt HEADER UP-C, Josy Referring Provider Wei NOYOLA, Dr. Shook Emergency Provider Dr. Rick Carlin DO Other Provider Jen NOYOLA, Dr. Ureña Attending Provider Zelalem HERNANDEZ, Dr. Coker Other Provider Trinidad HERNANDEZ, Dr. Gonzales Other Provider Oli HERNANDEZ, Dr. Pizarro Other Provider Kt NOYOLA, Dr. Plaza Attending Provider [phone] Dr. Bola Meraz DO Other Provider Víctor HERNANDEZ, Dr. Hill Alcaraz Other Provider Ashli HERNANDEZ, Dr. Aguilar Other Provider [phone] Missael HERNANDEZ, Dr. Cotton Other Provider Ashely HERNANDEZ, Dr. Foote Other Provider [phone] Cassandra HERNANDEZ, Dr. Garvin Other Provider Yamil HERNANDEZ, Dr. Solis Other Provider Dr. Mina Xie MD Other Provider Seble HERNANDEZ, Dr. Hernández Other Provider Dr. Gwendolyn Logan MD Other Provider Unavailformerly [facility] karma Venegas MD, Dr. Whyte Other Provider Dr. Elver Mancilla MD Other Provider Dr. Nadeem Au MD Other Provider Dr. Mason Samano DO Other Provider Dr. Anel Casey MD Other Provider Mallorie HERNANDEZ, Dr. Kelly Other Provider Dr. Kenneth Noland DO Other [...] Dr. Bola Meraz DO Attending Provider [phone] Bola Meraz DO Other Provider Víctor HERNANDEZ, Dr. Hill Alcaraz Other Provider Ashli HERNANDEZ, Dr. Aguilar Other Provider Missael HERNANDEZ, Dr. Cotton Other Provider Ashely HERNANDEZ, Dr. Foote Other Provider Cassandra HERNANDEZ, Dr. Garvin Other Provider [phone] Yamil HERNANDEZ, Dr. Solis Other Provider [phone] Dr. Mina Xie MD Other Provider Dr. Betty Pruett MD Other Provider Dr. Gwendolyn Logan MD Other Provider Unavailformerly [facility] karma Mosher MD, Dr. Douglas Other Provider [phone] Theo HERNANDEZ, Dr. Whyte Other Provider Laurent HERNANDEZ, Dr. Raya Other Provider [phone] Angely HERNANDEZ, Dr. Silver Other Provider [phone] Jazmyne NOYOLA, Dr. Cuevas Other Provider Carmela HERNANDEZ, Dr. Tam Other Provider [phone] Gerardo Nobles MD, Dr. Kelly Other Provider Nuzhat NYOOLA, Dr. Cooper Other Provider Rosendo HERNANDEZ, Dr. Wesley Other Provider Dylan HERNANDEZ, Dr. Colon Other Provider Dr. Jae Ash DO Attending Provider Teto HERNANDEZ, Dr. Osborn Attending Provider Jeremi NOYOLA, Dr. Enriquez Attending Provider Vanessa NOYOLA, Dr. Crain Emergency Provider [phone] Dr. Yaritza Leo DO Admit Provider Dr. Yaritza Leo DO Attending Provider Care Physician, No Primary Primary Care Provider Unavailable de Kyle NOYOLA, Dr. Alejandre Admit Provider Unavail able Caro DO, Dr. Alejandre Other Provider Unavail able Abiodun HERNANDEZ, Dr. Foster Rivas Other Provider Dr. Jae Ash DO Attending Provider Dr. Jae Ash DO Other Provider [phone] Teto HERNANDEZ, Dr. Osborn [facility] Ramos Emergency Provider Karena HERNANDEZ, Dr. Andre Other Provider Dr. Yaritza Leo DO Other Provider Frieda HERNANDEZ, Dr. Jefferson Marte Other Provider Lily HERNANDEZ, Dr. Maynard Other Provider Guy HERNANDEZ, Dr. Cielo Lan Other Provider [phone] Guy HERNANDEZ, Dr. Cielo Lan Referring Provider [...] Jeremi NOYOLA, Dr. Enriquez Other Provider John ROSA-C, Mar Attending Provider Presley HERNANDEZ, Dr. Marques Attending Provider Presley HERNANDEZ, Dr. Marques Referring Provider PHYSICIAN, NONE Attending Unavailable PHYSICIAN, NONE Primary Care Unavailable Jen NOYOLA, Dr. Ureña Other Provider Gio HERNANDEZ, Dr. Vázquez Other Provider Domenico HERNANDEZ, Dr. Alejandre Attending Provider Unavaila priscila Masterson MD, Dr. Coker Other Provider Dr. Christian Abdi MD Other Provider Oli HERNANDEZ, Dr. Pizarro Other Provider Kt NOYOLA, Dr. Plaza Attending Provider Kt NOYOLA, Dr. Plaza Other Provider Víctor HERNANDEZ, Dr. Hill Alcaraz Other Provider Ashli HERNANDEZ, Dr. Aguilar Other Provider Missael HERNANDEZ, Dr. Cotton Other Provider [phone] Ashely HERNANDEZ, Dr. Foote Other Provider [phone] Cassandra HERNANDEZ, Dr. Garvin Other Provider Yamil HERNANDEZ, Dr. Solis Other Provider Rojas HERNANDEZ, Dr. Enriquez Other Provider Seble HERNANDEZ, Dr. Hernández Other Provider Desmond HERNANDEZ, Dr. Snow Other Provider Unavailabl karma Mosher MD, Dr. Douglas Other Provider [phone] Theo HERNANDEZ, Dr. Whyte Other Provider Laurent HERNANDEZ, Dr. Raya Other Provider [phone] Angely HERNANDEZ, Dr. Silver Other Provider Jazmyne NOYOLA, Dr. Cuevas Other Provider [phone] Carmela HERNANDEZ, Dr. Tam Other Provider [phone] Mallorie HERNANDEZ, Dr. Kelly Other Provider [phone] Kenneth Noland DO Other Provider Rosendo HERNANDEZ, Dr. Wesley Other Provider Dylan HERNANDEZ, Dr. Colon Other Provider Dr. Luis Carlos Anderson DO Attending Provider Dr. Niranjan Li DO Attending Provider Julita Glover Attending Provider Unavailab Josy Lancaster Other Provider Dr. Rick Carlin DO Attending Provider Dr. Rick Carlin DO Other Provider DIANE CALLAHAN Attending Provider DIANE CALLAHAN Referring Provider Sherrie HERNANDEZ, Dr. Ca Attending Provider Curt HEADER UP-CJosy Primary Care Provider Curt HEADER UP-CJosy Attending Provider Shila HERNANDEZ, Dr. Buster Barr Other Provider Domenico HERNANDEZ, Dr. Alejandre Attending Provider Unavaila priscila cAuña MD, Dr. Alejandre Other Provider Unavailable Teto HERNANDEZ, Dr. Osborn Attending Provider Teto HERNANDEZ, Dr. Osborn Other Provider Shaun HERNANDEZ, Dr. Campo Emergency Provider Nilsa NOYOLA, Dr. Rowe Admit Provider Nilsa NOYOLA, Dr. Rowe Other Provider Aldo HERNANDEZ, Dr. Kevin Emergency Provider Gio HERNANDEZ, Dr. Vázquez Attending Provider Gio HERNANDEZ, Dr. Vázquez Admit Provider Gio HERNANDEZ, Dr. Vázquez Other Provider Dr. Rick Carlin DO Referring Provider Shaun HERNANDEZ, Dr. Campo Attending Provider Sherrie HERNANDEZ, Dr. Ca Referring Provider Sherrie HERNANDEZ, Dr. Ca Other Provider Ruddy HERNANDEZ, Dr. Garcia Emergency Provider Marisel NOYOLA, Dr. Ramos Emergency Provider Mone HERNANDEZ, Dr. Maria Guadalupe Carlson Attending Provider Mone HERNANDEZ, Dr. Maria Guadalupe Carlson Admit Provider John Paul Masterson Consulting Unavailable Niranjan Li Attending Unavailable Buster Fuchs Referring Unavailable Hill Caro Admitting Unavailable Care Physician, No Primary Primary Care Unava ilable Trinidad, Christian Consulting Unavailable Juarez Baird Consulting Unavailable Bola Meraz Consulting Unavailable Hill Renee Consulting Unavailable Jeff Cornelius Consulting Unavailable Yury Canas Consulting Unavailable Dary Lund Consulting Unavailab le DanTyree mcnallyant Consulting Unavailable Will Lobo Consulting Unavailable Mina [...] Rascon Consulting Unavailable Buster Fuchs Consulting Unavailable Yaritza Leo Consulting Unavailable Yaritza Leo Admitting Unavailable Cielo Tovar Attending Unavailable [facility] Josy Primary Care Unavailable Jefferson Malave Consulting Unavailable Aleyda Bautista Consulting Unavailable Cielo Tovar Consulting Unavailable [facility] Josy Primary Care Unavailable Josy Elias Attending Unavailable Kathie Powers Attending Unavailable Hill Acuña Consulting Unavailable Hill Herrmann Consulting Unavailable Blair Cage Consulting Unavailable Thiago Wray Consulting Unavailable Gabbi Hughes Consulting Unavailable Thai Godfrey Consulting Unavailable Juan Daniel Garza Consulting Unavailable Zachariah Glover Consulting Unavailable Scott Weston Consulting Unavailable Yue Delgadillo NP Consulting Unavailable Kathie Powers Consulting Unavailable Hill Acuña Attending Unavailable Jae Ash Consulting Unavailable Jae Ash Admitting Unavailable Care Physician, No Primary Primary Care Unava ilable Anurag Irene Attending Unavailable Teto Anurag Consulting Unavailable Jae Ash Consulting Unavailable Jae Ash Admitting Unavailable Care Physician, No Primary Primary Care Unava ilable Anurag Irene Attending Unavailable Teto, Anurag Consulting Unavailable Maria Guadalupe Shore Attending Unavailable Josy Elias Primary Care Unavailable Kathie Powers Consulting Unavailable Hill Acuña Attending Unavailable Care Physician, No Primary Primary Care Unava ilable Kathie Powers Admitting Unavailable Hill Acuña Consulting Unavailable Jae Ahs Attending Unavailable Buster Fuchs Admitting Unavailable Buster Fuchs Consulting Unavailable Josy Elias Primary Care Unavailable Hill Acuña Attending Unavailable Hill Acuña Consulting Unavailable Thai Thurston Consulting Unavailable Mosteller, Jae Admitting Unavailable Mostedvin Jae Consulting Unavailable Anurag Irene Attending Unavailable Care Physician, No Primary Primary Care Unava ilable White, Maria Guadalupe L Admitting Unavailable WhiteMaria Guadalupe L Attending Unavailable [facility] Josy Primary Care Unavailable [facility] Josy Primary Care Unavailable [facility] Josy Attending Unavailable [facility], Josy Referring Unavailable Kathie Powers Attending Unavailable Hill Caro [...] Consulting Unavailable Scott Weston Consulting Unavailable Elie HEADER UP, Yue Consulting Unavailable Boone Izquierdo Consulting Unavailable Boone Izquierdo Admitting Unavailable Yaritza Leo Attending Unavailable Jerald Sherwood Primary Care Unavailable Kathie Powers Admitting Unavailable Kathie Powers Consulting Unavailable Tannhof, Josy Primary Care Unavailable Rick Carlin Attending Unavailable Tannhof, Josy Primary Care Unavailable Jose Fox Attending Unavailable Tannf, Josy Primary Care Unavailable Alber Dunn Attending Unavailable Care Physician, No Primary Primary Care Unava ilable Danny Hutton Attending Unavailabl e Tannf, Josy Primary Care Unavailable Tannf, Josy Consulting Unavailable [facility], Josy Referring Unavailable Julita Glover Attending Unavailable ECHO WARD Attending Unavailable ECHO WARD Referring Unavailable Care Physician, No Primary Primary Care Unava ilable ECHO WARD Attending Unavailable ECHO WARD Referring Unavailable Care Physician, No Primary Primary Care Unava ilable Nilsa Jae Consulting Unavailable Tannhof, Josy Primary Care Unavailable Nilsa, Jae Admitting Unavailable Anurag Irene Attending Unavailable Niranjan Li Consulting Unavailable Yaritza Leo Consulting Unavailable Yaritza Leo Admitting Unavailable Tannhof, Josy Primary Care Unavailable Anurag Irene Attending Unavailable Jefferson Malave Consulting Unavailable Aleyda Bautista Consulting Unavailable Cielo Tovar Consulting Unavailable White, Maria Guadalupe L Admitting Unavailable White, Maria Guadalupe L Referring Unavailable White, Maria Guadalupe L Consulting Unavailable Care Physician, No Primary Primary Care Unava ilable Rick Carlin Attending Unavailable Josefina Khan Consulting Unavailable Boone Izquierdo Attending Unavailable Hill Caro Consulting Unavailable Hill Caro Admitting Unavailable Care Physician, No Primary Primary Care Unava ilable Anurag Irene Consulting Unavailable Jae Ash Consulting Unavailable Thai Thurston Consulting Unavailable Josefina Khan Consulting Unavailable Foster Rascon Consulting Unavailable Roby Balderas Referring Unavailable Roby Balderas Attending Unavailable [facility], Josy Primary Care Unavailable ECHO WARD Attending Unavailable ECHO WARD Referring Unavailable [facility], Josy Primary Care Unavailable Jerald Sherwood Attending Unavailable Presley, Jerald Primary Care Unavailable Jerald Sherwood Referring Unavailable Presley, Jerald Primary Care Unavailable Mina Blood Attending Unavailable Mina Blood Referring Unavailable Buster Fuchs Consulting Unavailable Buster Fuchs Admitting Unavailable [facility], Josy Primary Care Unavailable Hill Acuña Attending Unavailable Hill Acuña Attending Unavailable Care Physician, No Primary Primary Care Unava ilable Kathie Powers Consulting Unavailable Kathie Powers Admitting Unavailable Thai Thurston Consulting Unavailable Kathie Powers Attending Unavailable Jefferson Malave Attending Unavailable Teto Anurag Referring Unavailable Bola Meraz Attending Unavailable White, Maria Guadalupe L Referring Unavailable White, Maria Guadalupe L Admitting Unavailable John Paul Masterson Consulting Unavailable Care Physician, No Primary Primary Care Unava ilable Christian Abdi Consulting Unavailable Juarez Baird Consulting Unavailable Bola Meraz Consulting Unavailable Hill Renee Consulting Unavailable Jeff Cornelius Consulting Unavailable Yury Canas Consulting Unavailable Dary Lund Consulting UnavailBharathi East Consulting Unavailable Will Lobo Consulting Unavailable Mina Xie Consulting Unavailable Betty Pruett Consulting Unavailable Gwendolyn Logan Consulting Unavailable Pato Venegas Consulting Unavailable Elver Mancilla Consulting Unavailable Nadeem Au Consulting Unavailable Anamaria Samanokhdeep Consulting Unavailable Anel Casey Consulting Unavailable Robin Nobles Consulting Unavailable Kenneth Noland Consulting Unavailable Rosendo, Lupillo Consulting Unavailable Young Richardson Consulting Unavailable Maria Guadalupe Shore Consulting Unavailable Erin, Jayaprakas Consulting Unavailable Rick Carlin Consulting Unavailable Hill Caro Admitting Unavailable Jae Ash Attending Unavailable Care Physician, No Primary Primary Care Unava ilable Foster Rascon Consulting Unavailable Hill Caro Consulting Unavailable Thai Thurston Consulting Unavailable Erin, Jayaprakas Consulting Unavailable Teto, Anurag Consulting Unavailable Jae Ash Consulting Unavailable John Paul Masterson Consulting Unavailable [...] Richardson Consulting Unavailable Bola Meraz Attending Unavailable Cielo Tovar Referring Unavailable Hill Caro Attending Unavailable Teto, Anurag Attending Unavailable Teto, Anurag Consulting Unavailable Roby Balderas Attending Unavailable [facility] Primary Care Unavailable [facility], Josy Referring Unavailable Rick Carlin Attending Unavailable Butser Fuchs Attending Unavailable Bola Meraz Attending Unavailable Hill Caro Referring Unavailable Hill Caro Attending Unavailable [facility], Josy Primary Care Unavailable Boone Carvajal Attending Unavailable rPesley, Jerald Primary Care Unavailable Luis Carlos Anderson Attending Unavailable Presley, Jerald Primary Care Unavailable Mina Blood Attending Unavailable Boone Izquierdo Attending Unavailable Boone Izquierdo Consulting Unavailable [facility], Josy Primary Care Unavailable Mina Blood Attending Unavailable Niranjan Li Attending Unavailable Roby Balderas Consulting Unavailable Roby Balderas Attending Unavailable [facility], [place] Primary Care Unavailable Roby Balderas Referring Unavailable Tannhof, Josy Primary Care Unavailable Tannhof, Josy Referring Unavailable Teto Anurag Attending Unavailable Jerald Sherwood Referring Unavailable Tannhof, Josy Primary Care Unavailable Nelida Harris Attending Unavailable Teto, Anurag Attending Unavailable Kathie Powers Consulting Unavailable Tannhof, Josy Primary Care Unavailable Kathie Powers Admitting Unavailable Rick Carlin Attending Unavailable Rick Carlin Consulting Unavailable Friend, Niranjan Attending Unavailable Rick Carlin Referring Unavailable Kathie Powers Attending Unavailable Tannhof, Josy Primary Care Unavailable Friend, Niranjan Attending Unavailable Jae Ash Admitting Unavailable Jae Ash Consulting Unavailable Teto, Anurag Referring Unavailable Tannhof, Josy Primary Care Unavailable Friend, Niranjan Consulting Unavailable Teto, Anurag Consulting Unavailable Teto, Anurag Attending Unavailable Sherwood, Jerald Primary Care Unavailable Jae Ash Attending Unavailable Boone Izquierdo Admitting Unavailable Boone Izquierdo Consulting Unavailable Yaritza Leo Attending Unavailable Presley, Jerald Primary Care Unavailable Yaritza Leo Consulting Unavailable Boone Izquierdo Attending Unavailable Sherwood, Jerald Primary Care Unavailable Bola Meraz Attending Unavailable Teto, Anurag [...] Stella Consulting Unavailable Theo, Pato Consulting Unavailable Irukstephani Elver Consulting Unavailable Angely, Nadeem Consulting Unavailable Dhesi, Mason Consulting Unavailable Anel Casey Consulting Unavailable Robin Nobles Consulting Unavailable Kenneth Noland Consulting Unavailable Lupillo Robbins Consulting Unavailable Young Richardson Consulting Unavailable Yaritza Leo Attending Unavailable Buster Fuchs Attending Unavailable ED ECHO Consulting Unavailable ED ECHO Referring Unavailable Bailee ROSA, Jasmine Attending Unavailable Care Physician, No Primary Primary Care Unava ilable Jerald Sherwood Primary Care Unavailable Mina Blood Referring Unavailable Mina Blood Consulting Unavailable Mar Lopez Attending Unavailable Maria Guadalupe Shore Attending Unavailable Medications Current Medications Medication Drug Class(es) Dates Sig (Normalized) Sig (Original) acetaminophen 500 mg oral tablet (20 sources) Start: 09-14-2024 End: 10-28-2024 Acetaminophen 50 0 mg cap Take by mouth. Active carvedilol 3.125 mg oral tab let (3 sources) alpha-Adrenergic Tracey, beta-Adrenergic Tracey Start: 02-17-2025 cyclobenzaprine hydrochlorid e 10 mg oral tablet [...] tablet (20 sources) Loop Diuretic Start: 02-17-2025 End: 04-07-2025 Start: 11-18-2024 End: 02-17-2025 Start: 10-28-2024 End: [...] (20 sources) Insulin Analog Start: 09-14-2024 End: 04-07-2025 insulin lispro ( HUMALOG KWIKPEN) 100 unit/mL Inject subcutaneously three times a day before meals. Active insulin lispro 1 00 unit/mL injection Inject under the skin 4 times a day before meals. Sliding Scale Active metFORMIN hydrochloride 500 mg oral tablet (20 sources) Biguanide Start: 04-07-2025 Start: 11-21-2024 End: 03-30-2025 Start: 11-18-2024 take 1 tablet by bipin once daily at dinner metFORMIN ER (GLUMETZA) 500 mg 24 hr tablet Take 1 tablet by mouth daily with dinner. 90 tablet 11 11/18/2024 Active oxyCODONE hydrochloride 5 mg oral tablet (20 sources) Opioid Agonist Start: 04-07-2025 Start: 01-21-2025 End: 02-16-2025 Start: 10-04-2024 End: 10-04-2024 take 5 mg by mouth once as needed for pain 5 mg, oral, Once, On Fri10/04/24 at 1905, For 1 dose, If ordered PRN for pain, nurse is permitted to administer this medication for higher pain scores based on patient preference? Yes take 1 capsule by mo [facility] every six hours as needed oxyCODONE (Oxy-IR) [...] 7 days. 20 tablet 11/18/2024 11/25/2024 Active sodium bicarbonate 650 mg oral tablet (20 sources) Start: 04-07-2025 Start: 11-21-2024 End: 03-10-2025 Start: 11-18-2024 End: 12-18-2024 take 1 tablet by mouth twice daily sodium bicarbonate 650 mg tablet 1 tablet by ORAL/FEEDING TUBE route two times a day. 60 tablet 11/18/2024 12/18/2024 Active spironolactone 100 mg oral t ablet (20 sources) Aldosterone Antagonist Start: 01-21-2025 End: 04-07-2025 Start: 01-21-2025 End: 02-16-2025 Start: 11-21-2024 End: [...] / HYDROcodone bitartrate 5 mg oral tablet (20 sources) Opioid Agonist Start: 09-02-2024 End: 09-14-2024 Start: 09-02-2024 End: 09-14-2024 Hydrocodone-Acetaminophen 5- 325 mg Tablet Discontinued 1 {tbl} PO EVERY 4 HOURS NEEDED as needed for Pain Score 1-10 30 7 September 02, 2024 September 14, 2024 6:37pm apixaban 5 mg oral tablet (17 sources) Factor Xa Inhibitor Start: 11-21-2024 End: 11-25-2024 ascorbic acid 500 mg oral ta blet (16 sources) Vitamin C Start: 11-25-2024 End: 03-10-2025 atorvastatin 40 mg oral tabl et (17 sources) HMG-CoA Reductase Inhibitor Start: 11-21-2024 End: 03-10-2025 calcium carbonate 1250 mg / cholecalciferol 200 unt oral tablet (20 sources) Vitamin D Start: 10-28-2024 End: 03-10-2025 cephalexin 500 mg oral capsu le (13 sources) Cephalosporin Antibacterial Start: 12-30-2024 End: 01-05-2025 ciprofloxacin 500 mg oral ta blet (3 sources) Quinolone Antimicrobial Start: 02-27-2025 End: 04-07-2025 take 1 tablet by mouth once delmi y ciprofloxacin (Cipro) 500 mg tablet Take 1 tablet (500 mg) by mouth once daily. For prophylaxis Active doxycycline monohydrate 100 mg oral capsule (20 sources) Tetracycline-class Drug Start: 09-14-2024 End: 10-28-2024 0.8 ml enoxaparin sodium 150 mg/ml prefilled syringe (20 sources) Low Molecular Weight Heparin Start: 11-21-2024 End: 12-30-2024 Start: 11-18-2024 inject 100 mg by sub cutaneous injection every twelve hours enoxaparin (LOVENOX) 120 mg/0.8 mL injection Inject 99 mg subcutaneously every 12 hours. Inject 0.7 mL subcutaneously every 12 hours 48 mL 2 11/18/2024 Active fluconazole 200 mg oral tabl et (19 sources) Azole Antifungal Start: 11-18-2024 End: 11-27-2024 [...] pain. Suspended imiquimod 50 mg/ml topical cream (16 sources) Start: 12-02-2024 End: 12-30-2024 Insulin Glargine-Yfgn [...] MD. Active linezolid 600 mg oral tablet (7 sources) Oxazolidinone Antibacterial Start: 01-31-2025 End: 02-16-2025 magnesium oxide 400 mg oral tablet (17 sources) Start: 11-21-2024 End: 03-10-2025 midodrine hydrochloride [...] 1 dose nadolol 20 mg oral tablet (11 sources) beta-Adrenergic Tracey Start: 01-02-2025 End: 01-21-2025 omeprazole 20 mg delayed release oral capsule (8 sources) Proton Pump Inhibitor Start: 01-28-2025 End: [...] 40 mg by mouth once daily. Suspended potassium chloride 20 meq ex tended release oral tablet (4 sources) Start: 03-10-2025 End: 03-30-2025 rifAXIMin 550 mg oral tablet (20 sources) Rifamycin Antibacterial Start: 09-02-2024 End: 03-10-2025 vancomycin 125 mg oral capsu le (16 sources) Glycopeptide Antibacterial Start: 12-02-2024 End: 01-05-2025 zinc sulfate 220 mg oral tab let (20 sources) Start: 11-21-2024 End: 03-10-2025 Start: 11-18-2024 [...] of liver with ascites] Onset: 03-04-2025 Chronic Calculus of urinary tract (20 sources) Staghorn [...] Onset: 11-11-2024 Episodic Deficiency and other anemia (8 sources) Chronic anemia; Translations: [Anemia, unspecified] 02-16-2025 Episodic Diabetes mellitus with complications (1 source) Type 2 diabetes mellitus with hyperglycemia; Translations: [Type 2 diabetes mellitus with hyperglycemia] Onset: 03-15-2025 Chronic Diabetes mellitus without complication (19 sources) Insulin treated type 2 diabetes mellitus; Translations: [Type 2 diabetes mellitus without complications] 12-30-2024 Chronic Diabetes mellitus without complication (15 sources) Hyperglycemia; Translations: [Hyperglycemia, unspecified] 12-30-2024 Episodic [...] Onset: 11-11-2024 09-05-2024 Episodic Nonspecific chest pain (14 sources) Chest pain; Translations: [Chest pain, unspecified] [...] and ureter, unspecified] 09-23-2024 Episodic Other fractures (20 sources) Compression fracture of thoracic spine; Translations: [...] Onset: 03-23-2025 09-10-2024 Episodic Other liver diseases (10 sources) Elevated liver enzymes level; Translations: [Abnormal levels of other serum enzymes] 02-16-2025 Episodic Other liver diseases (6 sources) Decompensated cirrhosis of liver; Translations: [Hepatic [...] Chronic Other nutritional; endocrine; and metabolic disorders (10 sources) Hyperammonemia; Translations: [Disorder of urea cycle metabolism, unspecified] 02-16-2025 Chronic Other nutritional; endocrine; and metabolic disorders (2 sources) Disorder of urea cycle metabolism, unspecified; Translations: [Disorder of urea cycle metabolism, unspecified] Onset: 03-23-2025 Chronic Other nutritional; endocrine; and metabolic disorders (1 source) Obesity, unspecified; Translations: [Obesity, unspecified] Onset: 09-17-2024 Chronic Other nutritional; endocrine; and metabolic disorders (8 sources) H/O: diabetes mellitus; Translations: [Personal history of other endocrine, nutritional and metabolic disease] 02-16-2025 Episodic Other nutritional; endocrine; and metabolic disorders (2 sources) History of diabetes mellitus type 2; Translations: [...] edema; Translations: [Localized edema] Onset: 10-04-2024 Episodic Residual codes; unclassified (1 source) Altered mental status; Translations: [Altered mental status, unspecified] 04-03-2025 Episodic Septicemia (except in labor) (20 sources) Sepsis; Translations: [Sepsis, unspecified organism] Onset: 11-11-2024 Resolved: 11-18-2024 10-29-2024 Episodic Skin and subcutaneous tissue infections (20 sources) Cellulitis of abdominal wall ; Translations: [Cellulitis of abdominal wall] Onset: 12-04-2024 12-03-2024 Episodic Spondylosis; intervertebral disc disorders; other back problems (20 sources) Chronic back pain ; Translations: [Dorsalgia, unspecified] Onset: 09-10-2024 09-23-2024 Episodic Superficial injury; contusion (20 sources) Contusion of lower back; Translations: [Contusion [...] te Episodic/Chronic Other circulatory disease (1 source) Hypotension, unspecified; [...] Range Facility Absolute lymphocyte countOrd ered By: Rachel Joiner on 04-07-2025 Lymphocytes Auto (Unsp spec) [#/Vol] 1.32 10*3/uL 0.83-4.51 [facility] Ammoniaon 04-07-2025 Ammonia (P) [Moles/Vol] 143.0 umol/L High 16-60 [facility] Comment on above: Performed By: #### L 501.2450, L500.3400, L100.0100, L500.2500, L503.5510 ####[facility] [address] [place], [address] Anion gap in Serum or Plasma Ordered By: Rachel Joiner on 04-07-2025 Anion gap [Moles/Vol] 9 mmol/L 5-15 [facility] Automated lymphocyte count a s percentage of total leukocytesOrdered By: Rachel Joiner on 04-07-2025 Lymphocytes/100 WBC Auto (Unsp spec) 16.8 % Low 19-41 [facility] BUN/creatinine ratioOrdered By: Rachel Joiner on 04-07-2025 Urea nitrogen/Creatinine [Mass ratio] 10.5 mg/mg 10- [facility] Basic Metabolic Profile (BMP )on 04-07-2025 BUN/CRE 10.5 RATIO Normal 05-23 [facility] Comment on above: Performed By: #### L 501.2450, L500.3400, L100.0100, L500.2500, L503.5510 ####[facility] [address] [place], [address] Calcium [Mass/Vol] 8.6 mg/dL Normal 7.6-11.0 [facility] Comment on above: Performed By: #### L 501.2450, L500.3400, L100.0100, L500.2500, L503.5510 ####[facility] [address] [place], [address] Chloride [Moles/Vol] 110 mmol/L High 98-108 [facility] Comment on above: Performed By: #### L 501.2450, L500.3400, L100.0100, L500.2500, L503.5510 ####[facility] [address] [place], [address] CO2 [Moles/Vol] 16.9 mmol/L Low 21.0-32.0 [facility] Comment on above: Performed By: #### L 501.2450, L500.3400, L100.0100, L500.2500, L503.5510 ####[facility] [address] [place], [address] Creatinine [Mass/Vol] 1.04 mg/dL Normal 0.70-1.20 [facility] Comment on above: Performed By: #### L 501.2450, L500.3400, L100.0100, L500.2500, L503.5510 ####[facility] [address] [place], [address] GAP 9 Normal 5-15 [facility] Comment on above: Performed By: #### L 501.2450, L500.3400, L100.0100, L500.2500, L503.5510 ####[facility] [address] [place], [address] GFR/1.73 sq M.predicted among non-blacks MDRD (S/P/Bld) [Vol rate/Area] 83 mL/min/{1.73_m2} Normal >60 [facility] Comment on above: Result Comment: mL/m in/1.73m2 CKD-EPI Creatinine Equation (2020) Performed By: #### L 501.2450, L500.3400, L100.0100, L500.2500, L503.5510 ####[facility] [address] [place], [address] Glucose [Mass/Vol] 106 mg/dL High 70-99 [facility] Comment on above: Performed By: #### L 501.2450, L500.3400, L100.0100, L500.2500, L503.5510 ####[facility] [address] [place], [address] Potassium [Moles/Vol] 4.0 mmol/L Normal 3.3-5.1 [facility] Comment on above: Performed By: #### L 501.2450, L500.3400, L100.0100, L500.2500, L503.5510 ####[facility] [address] [place], [address] Sodium [Moles/Vol] 136 mmol/L Normal 133-145 [facility] Comment on above: Performed By: #### L 501.2450, L500.3400, L100.0100, L500.2500, L503.5510 ####[facility] [address] [place], [address] Urea nitrogen [Mass/Vol] 11 mg/dL Normal 4-19 [facility] Comment on above: Performed By: #### L 501.2450, L500.3400, L100.0100, L500.2500, L503.5510 ####[facility] [address] [place], [place], [id number] Basophil percentageOrdered B y: Rachel Joiner on 04-07-2025 Basophils/100 WBC (Bld) 0.6 % 0-1 [facility] Bedside Glucoseon 04-07-2025 FINGERSTICK GLU 81 mg/dL Normal 74-106 [facility] Comment on above: Result Comment: BRISA MOROCHO OF PATIENT CARE PER NURSING PROTOCOL Performed By: #### L 501.080 ####[facility] [address] [place], [address] Bilirubin Test strip Ql (U)O rdered By: Rachel Joiner on 04-07-2025 Bilirubin Ql (U) Negative Negative [facility] Bilirubin directOrdered By: Rachel Joiner on 04-07-2025 Bilirubin.direct [Mass/Vol] 1.11 mg/dL High 0.00-0.30 [facility] Bilirubin, totalOrdered By: Rachel Joiner on 04-07-2025 Bilirubin [Mass/Vol] 1.76 mg/dL High 0.00-1.30 [facility] CBC W/Diff, Automatedon Absolute Lymph 1.32 X10 3/uL Normal 0.83-4.51 [facility] Comment on above: Performed By: #### L 501.2450, L500.3400, L100.0100, L500.2500, L503.5510 ####[facility] [address] [place], [address] Absolute Neut 5.3 X10 3/uL Normal 2.0-7.7 [facility] Comment on above: Performed By: #### L 501.2450, L500.3400, L100.0100, L500.2500, L503.5510 ####[facility] [address] [place], [address] Basophils/100 WBC (Bld) 0.6 % Normal 0-1 [facility] Comment on above: Performed By: #### L 501.2450, L500.3400, L100.0100, L500.2500, L503.5510 ####[facility] [address] [place], [address] Eosinophils/100 WBC (Bld) 5.2 % High 0-5 [facility] Comment on above: Performed By: #### L 501.2450, L500.3400, L100.0100, L500.2500, L503.5510 ####[facility] [address] [place], [address] Erythrocyte distribution width (RBC) [Ratio] 15.5 % High 11.6-14.6 [facility] Comment on above: Performed By: #### L 501.2450, L500.3400, L100.0100, L500.2500, L503.5510 ####[facility] [address] [place], [address] Hematocrit (Bld) [Volume fraction] 27.7 % Low 40-54 [facility] Comment on above: Performed By: #### L 501.2450, L500.3400, L100.0100, L500.2500, L503.5510 ####[facility] [address] [place], [address] Hemoglobin (Bld) [Mass/Vol] 9.1 g/dL Low 13.0-16.5 [facility] Comment on above: Performed By: #### L 501.2450, L500.3400, L100.0100, L500.2500, L503.5510 ####[facility] [address] [place], [address] IG% 0.500 Normal 0.0-0.9 [facility] Comment on above: Result Comment: IG% - Immature Granulocytes (promyelocytes, myelocytes andmetamyelocytes) > 1% indicates that a LEFT SHIFT is Present. Performed By: #### L 501.2450, L500.3400, L100.0100, L500.2500, L503.5510 ####[facility] [address] [place], [address] Lymphocytes/100 WBC (Bld) 16.8 % Low 19-41 [facility] Comment on above: Performed By: #### L 501.2450, L500.3400, L100.0100, L500.2500, L503.5510 ####[facility] [address] [place], [address] MCH (RBC) [Entitic mass] 29.7 pg Normal 27.0-32.0 [facility] Comment on above: Performed By: #### L 501.2450, L500.3400, L100.0100, L500.2500, L503.5510 ####[facility] [address] [place], [address] MCHC (RBC) [Mass/Vol] 32.9 g/dL Normal 32-36 [facility] Comment on above: Performed By: #### L 501.2450, L500.3400, L100.0100, L500.2500, L503.5510 ####[facility] [address] [place], [address] MCV (RBC) [Entitic vol] 90.5 fL Normal 80-94 [facility] Comment on above: Performed By: #### L 501.2450, L500.3400, L100.0100, L500.2500, L503.5510 ####[facility] [address] [place], [address] Monocytes/100 WBC (Bld) 9.9 % Normal 0-10 [facility] Comment on above: Performed By: #### L 501.2450, L500.3400, L100.0100, L500.2500, L503.5510 ####[facility] [address] [place], [address] Neutrophils/100 WBC (Bld) 67.0 % Normal 47-70 [facility] Comment on above: Performed By: #### L 501.2450, L500.3400, L100.0100, L500.2500, L503.5510 ####[facility] [address] [place], [address] Nucleated RBC (Bld) [#/Vol] 0 10*3/uL Normal 0-5 [facility] Comment on above: Performed By: #### L 501.2450, L500.3400, L100.0100, L500.2500, L503.5510 ####[facility] [address] [place], [address] Platelet mean volume (Bld) [Entitic vol] 10.8 fL Normal 6.2-12.0 [facility] Comment on above: Performed By: #### L 501.2450, L500.3400, L100.0100, L500.2500, L503.5510 ####[facility] [address] [place], [address] Platelets (Bld) [#/Vol] 164 10*3/uL Normal 150-450 [facility] Comment on above: Performed By: #### L 501.2450, L500.3400, L100.0100, L500.2500, L503.5510 ####[facility] [address] [place], [address] RBC (Bld) [#/Vol] 3.06 10*6/uL Low 4.6-6.2 [facility] Comment on above: Performed By: #### L 501.2450, L500.3400, L100.0100, L500.2500, L503.5510 ####[facility] [address] [place], [address] RDW SD 50.8 fl High 35.1-43.9 [facility] Comment on above: Performed By: #### L 501.2450, L500.3400, L100.0100, L500.2500, L503.5510 ####[facility] [address] [place], [address] WBC (Bld) [#/Vol] 7.9 10*3/uL Normal 4.4-11.0 [facility] Comment on above: Performed By: #### L 501.2450, L500.3400, L100.0100, L500.2500, L503.5510 ####[facility] [address] [place], [place], [id number] Carbon dioxide, total [Moles /volume] in Central venous bloodOrdered By: Rachel Joiner on 04-07-2025 CO2 [Moles/Vol] 16.9 mmol/L Low 21.0-32.0 [facility] Chloride assayOrdered By: Brendan Joiner on 04-07-2025 Chloride [Moles/Vol] 110 mmol/L High 98-108 [facility] Emergency Department Summary on 04-07-2025 Emergency Department Summary Normal [facility] Eosinophil percentageOrdered By: Rachel Joiner on 04-07-2025 Eosinophils/100 WBC (Bld) 5.2 % High 0-5 [facility] Erythrocyte distribution wid th ratioOrdered By: Rachel Joiner on 04-07-2025 Erythrocyte distribution width (RBC) [Ratio] 15.5 % High 11.6-14.6 [facility] Erythrocyte distribution wid th standard deviationOrdered By: Rachel Joiner on 04-07-2025 Erythrocyte distribution width (RBC) [Ratio] 50.8 fl High 35.1-43.9 [facility] Glomerular filtration rate ( GFR) estimation/1.73 sq m using serum, plasma, or whole bOrdered By: Rachel Joiner on 04-07-2025 GFR/1.73 sq M.predicted among non-blacks MDRD (S/P/Bld) [Vol rate/Area] 83 mL/min/{1.73_m2} >60 [facility] Glucose measurement at bedsi deOrdered By: ED PROVIDER on 04-07-2025 Glucose [Mass/Vol] 81 mg/dL 74-106 [facility] H AND P Exam - Hospitaliston 04-07-2025 H&P Exam - Hospitalist Normal [facility] Hematocrit Auto (Bld) [Volum e fraction]Ordered By: Rachel Joiner on 04-07-2025 Hematocrit (Bld) [Volume fraction] 27.7 % Low 40-54 [facility] Hemoglobin measurementOrdere d By: Rachel Joiner on 04-07-2025 Hemoglobin (Bld) [Mass/Vol] 9.1 g/dL Low 13.0-16.5 [facility] Immature granulocytes/100 WB C Auto (Bld)Ordered By: Rachel Joiner on 04-07-2025 Immature granulocytes/100 WBC (Bld) 0.500 % 0.0-0.9 [facility] Ketones Test strip Ql (U)Ord ered By: Rachel Joiner on 04-07-2025 Ketones Ql (U) Negative Negative [facility] Lipaseon 04-07-2025 Lipase [Catalytic activity/Vol] 47 U/L Normal 13-75 [facility] Comment on above: Result Comment: Siddhartha bhat note:LIPASE revised reference range effective 22.New Lipase methodology. Expected to produce lower valuesthan the previous assay method.NEW Reference Range: 13 - 75 U/L Performed By: #### L 501.2450, L500.3400, L100.0100, L500.2500, L503.5510 ####[facility] [address] [place], [place], [id number] Liver Profileon 04-07-2025 Albumin [Mass/Vol] 2.4 g/dL Low 3.5-5.0 [facility] Comment on above: Performed By: #### L 501.2450, L500.3400, L100.0100, L500.2500, L503.5510 ####[facility] [address] [place], [place], [id number] ALK PHOS 176 U/L High 40-129 [facility] Comment on above: Performed By: #### L 501.2450, L500.3400, L100.0100, L500.2500, L503.5510 ####[facility] [address] [place], [address] ALT [Catalytic activity/Vol] 23 U/L Normal <=46 [facility] Comment on above: Performed By: #### L 501.2450, L500.3400, L100.0100, L500.2500, L503.5510 ####[facility] [address] [place], [address] AST [Catalytic activity/Vol] 48 U/L High <=37 [facility] Comment on above: Performed By: #### L 501.2450, L500.3400, L100.0100, L500.2500, L503.5510 ####[facility] [address] [place], [address] Bilirubin [Mass/Vol] 1.76 mg/dL High 0.00-1.30 [facility] Comment on above: Performed By: #### L 501.2450, L500.3400, L100.0100, L500.2500, L503.5510 ####[facility] [address] [place], [address] Bilirubin.direct [Mass/Vol] 1.11 mg/dL High 0.00-0.30 [facility] Comment on above: Performed By: #### L 501.2450, L500.3400, L100.0100, L500.2500, L503.5510 ####[facility] [address] [place], [address] Globulin (S) [Mass/Vol] 3.8 g/dL Normal 2.2-4.2 [facility] Comment on above: Performed By: #### L 501.2450, L500.3400, L100.0100, L500.2500, L503.5510 ####[facility] [address] [place], [address] T PROT 6.1 g/dL Normal 5.9-8.4 [facility] Comment on above: Performed By: #### L 501.2450, L500.3400, L100.0100, L500.2500, L503.5510 ####[facility] [address] [place], [address] MCV (mean corpuscular volume ) determinationOrdered By: Rachel Joiner on 04-07-2025 MCV (RBC) [Entitic vol] 90.5 fL 80-94 [facility] Magnesiumon 04-07-2025 Magnesium [Mass/Vol] 1.7 mg/dL Normal 1.5-2.2 [facility] Comment on above: Order Comment: Comme nts: May add to ED labsComments: may add to ED labs Performed By: #### L 501.5200, L501.2300 ####[facility] [address] [place], [address] Magnesium measurement (mass/ volume)Ordered By: Maria Guadalupe Shore on 04-07-2025 Magnesium (Unsp spec) [Mass/Vol] 1.7 mg/dL 1.5-2.2 [facility] Mean corpuscular hemoglobin (MCH) determinationOrdered By: Rachel Jonier on 04-07-2025 MCH (RBC) [Entitic mass] 29.7 pg 27.0-32.0 [facility] Monocyte percentageOrdered B y: Rachel Joiner on 04-07-2025 Monocytes/100 WBC (Bld) 9.9 % 0-10 [facility] Mucus LM Ql (Urine sed)Order ed By: Rachel Joiner on 04-07-2025 Mucus Ql (Urine sed) 0 SEEN /hpf [facility] Neutrophil percentageOrdered By: Rachel Joiner on 04-07-2025 Neutrophils/100 WBC (Bld) 67.0 % 47-70 [facility] Nitrite Test strip Ql (U)Ord ered By: Rachel Joiner on 04-07-2025 Nitrite Ql (U) Negative Negative [facility] No Panel InformationOrdered By: Rachel Joiner on 04-07-2025 48 U/L High <38 [facility] Phosphoruson 04-07-2025 Phosphate [Mass/Vol] 3.0 mg/dL Normal 2.7-4.5 [facility] Comment on above: Order Comment: Comme nts: May add to ED labsComments: may add to ED labs Performed By: #### L 501.5200, L501.2300 ####[facility] [address] [place], [place], [id number] Platelet countOrdered By: Brendan Joiner on 04-07-2025 Platelets (Bld) [#/Vol] 164 10*3/uL 150-450 [facility] Potassium measurement (mass/ volume)Ordered By: Rachel Joiner on 04-07-2025 Potassium (Unsp spec) [Mass/Vol] 4.0 mmol/L 3.3-5.1 [facility] Protein Test strip Ql (U)Ord ered By: Rachel Joiner on 04-07-2025 Protein Ql (U) 100 mg/dl High Negative [facility] RBC Auto (Bld) [#/Vol]Ordere d By: Rachel Joiner on 04-07-2025 RBC (Bld) [#/Vol] 3.06 10*6/uL Low 4.6-6.2 [facility] Serum creatinine measurement (mass/volume)Ordered By: Rachel Joiner on 04-07-2025 Creatinine [Mass/Vol] 1.04 mg/dL 0.70-1.20 [facility] Serum globulin measurementOr dered By: Rachel Joiner on 04-07-2025 Globulin (S) [Mass/Vol] 3.8 g/dL 2.2-4.2 [facility] Serum glucose measurement (m ass/volume)Ordered By: Rachel Joiner on 04-07-2025 Glucose [Mass/Vol] 106 mg/dL High 70-99 [facility] Serum or plasma alanine thomas otransferase (ALT) measurementOrdered By: Rachel Joiner on 04-07-2025 ALT [Catalytic activity/Vol] 23 U/L <47 [facility] Serum or plasma albumin roosevelt urement (mass/volume)Ordered By: Rachel Joiner on 04-07-2025 Albumin [Mass/Vol] 2.4 g/dL Low 3.5-5.0 [facility] Serum or plasma alkaline kendrick sphatase measurementOrdered By: Rachel Joiner on 04-07-2025 ALP [Catalytic activity/Vol] 176 U/L High 40-129 [facility] Serum or plasma calcium roosevelt urement (mass/volume)Ordered By: Rachel Joiner on 04-07-2025 Calcium [Mass/Vol] 8.6 mg/dL 7.6-11.0 [facility] Serum or plasma urea nitroge n measurement (mass/volume)Ordered By: Rachel Joiner on 04-07-2025 Urea nitrogen [Mass/Vol] 11 mg/dL 4-19 [facility] Sodium levelOrdered By: Kateryna Joiner on 04-07-2025 Sodium [Moles/Vol] 136 mmol/L 133-145 [facility] Squamous epithelial cells de tection in urine sediment by light microscopyOrdered By: Rachel Joiner on 04-07-2025 Epithelial cells.squamous LM Ql (Urine sed) 0 SEEN /hpf 0-5 [facility] Total proteinOrdered By: Shi Joiner on 04-07-2025 Protein [Mass/Vol] 6.1 g/dL 5.9-8.4 [facility] Urinalysis, Completeon 04-07 BACTERIA 1+ /hpf Normal None Seen [facility] Comment on above: Order Comment: CLEAN CATCH Performed By: #### L 400.0001 ####[facility] [address] [place], [address] RBC 50-100 SEEN Normal 0-5 [facility] Comment on above: Order Comment: CLEAN CATCH Performed By: #### L 400.0001 ####[facility] [address] [place], [address] WBC 0-5 SEEN Normal 0-5 [facility] Comment on above: Order Comment: CLEAN CATCH Performed By: #### L 400.0001 ####[facility] [address] [place], [address] EPI,SQUAMOUS 0 SEEN Normal 0-5 [facility] Comment on above: Order Comment: CLEAN CATCH Performed By: #### L 400.0001 ####[facility] [address] [place], [address] Mucus Ql (Urine sed) 0 SEEN Normal [facility] Comment on above: Order Comment: CLEAN CATCH Performed By: #### L 400.0001 ####[facility] [address] [place], [place], [id number] Urine clarityOrdered By: Shi Joiner on 04-07-2025 Clarity (U) Sl. Cloudy Clear [facility] Urine color determinationOrd ered By: Rachel Joiner on 04-07-2025 Color (U) Yellow Yellow [facility] Urine glucose detectionOrder ed By: Rachel Joiner on 04-07-2025 Glucose Ql (U) Normal mg/dl Normal [facility] Urine leukocyte esterase det ection by dipstickOrdered By: Rachel Joiner on 04-07-2025 Leukocyte esterase Test strip Ql (U) 500 /ul High Negative [facility] Urine pHOrdered By: Rachel silva on 04-07-2025 pH (U) 6.5 [pH] 5.0 - 8.0 [facility] Urine sediment bacteria coun t by microscopy (number/high power field)Ordered By: Rachel Joiner on 04-07-2025 Bacteria LM.HPF (Urine sed) [#/Area] 1 /[HPF] None Seen [facility] Urine specific gravity measu rementOrdered By: Rachel Joiner on 04-07-2025 Specific gravity (U) [Rel density] 1.015 1.002-1.030 [facility] Urine urobilinogen measureme ntOrdered By: Rachel Joiner on 04-07-2025 Urobilinogen Ql (U) Normal mg/dl Normal [facility] Venous blood ammonia measure mentOrdered By: Rachel Joiner on 04-07-2025 Ammonia (P) [Moles/Vol] 143.0 umol/L High 16-60 [facility] White blood cell (WBC) count Ordered By: Rachel Joiner on 04-07-2025 WBC (Bld) [#/Vol] 7.9 10*3/uL 4.4-11.0 [facility] White blood cell countOrdere d By: Rachel Joiner on 04-07-2025 White blood cell count 0-5 SEEN /hpf 0-5 [facility] 12 Lead EKGon 04-03-2025 12 Lead EKG Normal [facility] CBC W/Diff, Automatedon 03-06 Absolute Neut Normal 2.0-7.7 [facility] Comment on above: Result Comment: Canc elled via OM: MD Ordered Performed By: #### L 100.0100, L300.3900, L500.4050 ####[facility] [address] [facility] [address] HCT Normal 40-54 [facility] Comment on above: Result Comment: Canc elled via OM: MD Ordered Performed By: #### L 100.0100, L300.3900, L500.4050 ####[facility] [address] [place], [address] HGB Normal 13.0-16.5 [facility] Comment on above: Result Comment: Canc elled via OM: MD Ordered Performed By: #### L 100.0100, L300.3900, L500.4050 ####[facility] [address] [place], [address] MCH Normal 27.0-32.0 [facility] Comment on above: Result Comment: Canc elled via OM: MD Ordered Performed By: #### L 100.0100, L300.3900, L500.4050 ####[facility] [address] [place], [address] MCHC Normal 32-36 [facility] Comment on above: Result Comment: Canc elled via OM: MD Ordered Performed By: #### L 100.0100, L300.3900, L500.4050 ####[facility] [address] [place], [address] MCV Normal 80-94 [facility] Comment on above: Result Comment: Canc elled via OM: MD Ordered Performed By: #### L 100.0100, L300.3900, L500.4050 ####[facility] [address] [place], [address] NEUT% Normal 47-70 [facility] Comment on above: Result Comment: Canc elled via OM: MD Ordered Performed By: #### L 100.0100, L300.3900, L500.4050 ####[facility] [address] [place], [address] PLT Normal 150-450 [facility] Comment on above: Result Comment: Canc elled via OM: MD Ordered Performed By: #### L 100.0100, L300.3900, L500.4050 ####[facility] [address] [place], [address] RBC Normal 4.6-6.2 [facility] Comment on above: Result Comment: Canc elled via OM: MD Ordered Performed By: #### L 100.0100, L300.3900, L500.4050 ####[facility] [address] [place], [address] RDW CV Normal 11.6-14.6 [facility] Comment on above: Result Comment: Canc elled via OM: MD Ordered Performed By: #### L 100.0100, L300.3900, L500.4050 ####[facility] [address] [place], [address] RDW SD Normal 35.1-43.9 [facility] Comment on above: Result Comment: Canc elled via OM: MD Ordered Performed By: #### L 100.0100, L300.3900, L500.4050 ####[facility] [address] [place], [address] WBC Normal 4.4-11.0 [facility] Comment on above: Result Comment: Canc elled via OM: MD Ordered Performed By: #### L 100.0100, L300.3900, L500.4050 ####[facility] [address] [place], [address] Comprehensive Metabolic Prof ilon 04-03-2025 ALB Normal 3.5-5.0 [facility] Comment on above: Result Comment: Canc elled via OM: MD Ordered Performed By: #### L 100.0100, L300.3900, L500.4050 ####[facility] [address] [place], [address] ALK PHOS Normal 40-129 [facility] Comment on above: Result Comment: Canc elled via OM: MD Ordered Performed By: #### L 100.0100, L300.3900, L500.4050 ####[facility] [address] [place], [address] ALT Normal <=46 [facility] Comment on above: Result Comment: Canc elled via OM: MD Ordered Performed By: #### L 100.0100, L300.3900, L500.4050 ####[facility] [address] [place], [address] AST Normal <=37 [facility] Comment on above: Result Comment: Canc elled via OM: MD Ordered Performed By: #### L 100.0100, L300.3900, L500.4050 ####[facility] [address] [place], [address] BUN Normal 4-19 [facility] Comment on above: Result Comment: Canc elled via OM: MD Ordered Performed By: #### L 100.0100, L300.3900, L500.4050 ####[facility] [address] [place], [address] BUN/CRE Normal 10-20 [facility] Comment on above: Result Comment: Canc elled via OM: MD Ordered Performed By: #### L 100.0100, L300.3900, L500.4050 ####[facility] [address] [place], [address] Calcium Normal 7.6-11.0 [facility] Comment on above: Result Comment: Canc elled via OM: MD Ordered Performed By: #### L 100.0100, L300.3900, L500.4050 ####[facility] [address] [place], [address] CL Normal 98-108 [facility] Comment on above: Result Comment: Canc elled via OM: MD Ordered Performed By: #### L 100.0100, L300.3900, L500.4050 ####[facility] [address] [place], [address] CO2 Normal 21.0-32.0 [facility] Comment on above: Result Comment: Canc elled via OM: MD Ordered Performed By: #### L 100.0100, L300.3900, L500.4050 ####[facility] [address] [place], [address] CREAT,SERUM Normal 0.70-1.20 [facility] Comment on above: Result Comment: Canc elled via OM: MD Ordered Performed By: #### L 100.0100, L300.3900, L500.4050 ####[facility] [address] [place], [address] eGFR Normal >60 [facility] Comment on above: Result Comment: Canc elled via OM: MD Ordered Performed By: #### L 100.0100, L300.3900, L500.4050 ####[facility] [address] [place], [address] GAP Normal 5-15 [facility] Comment on above: Result Comment: Canc elled via OM: MD Ordered Performed By: #### L 100.0100, L300.3900, L500.4050 ####[facility] [address] [place], [address] GLU Normal 70-99 [facility] Comment on above: Result Comment: Canc elled via OM: MD Ordered Performed By: #### L 100.0100, L300.3900, L500.4050 ####[facility] [address] [place], [address] Potassium Normal 3.3-5.1 [facility] Comment on above: Result Comment: Canc elled via OM: MD Ordered Performed By: #### L 100.0100, L300.3900, L500.4050 ####[facility] [address] [place], [address] T BILI Normal 0.00-1.30 [facility] Comment on above: Result Comment: Canc elled via OM: MD Ordered Performed By: #### L 100.0100, L300.3900, L500.4050 ####[facility] [address] [place], [address] T PROT Normal 5.9-8.4 [facility] Comment on above: Result Comment: Canc elled via OM: MD Ordered Performed By: #### L 100.0100, L300.3900, L500.4050 ####[facility] [address] [place], [address] Comprehensive Metabolic Profil Normal 133-145 [facility] Comment on above: Result Comment: Devonte elled via OM: MD Ordered Performed By: #### L 100.0100, L300.3900, L500.4050 ####[facility] [address] [place], [address] Emergency Department Summary on 04-03-2025 Emergency Department Summary Normal [facility] Prothrombin Time w/INRon INR Normal [facility] Comment on above: Result Comment: Devonte elled via OM: MD Ordered Performed By: #### L 100.0100, L300.3900, L500.4050 ####[facility] [address] [place], [address] PROTIME Normal 11.7-14.9 [facility] Comment on above: Result Comment: Devonte elled via OM: MD Ordered Performed By: #### L 100.0100, L300.3900, L500.4050 ####[facility] [address] [place], [address] Bedside Glucoseon 03-31-2025 FINGERSTICK GLU 111 mg/dL High 74-106 [facility] Comment on above: Result Comment: BRISA MOROCHO OF PATIENT CARE PER NURSING PROTOCOL Performed By: #### L 501.080 ####[facility] [address] [place], [address] Discharge Instructionon 03-05 Discharge Instruction Normal [facility] deOrdered By: Roby Balderas on 03-30-2025 Glucose [Mass/Vol] 111 mg/dL High 74-106 [facility] MR/POSTOP.ANEon 03-30-2025 MR/POSTOP.ANE Normal [facility] MR/UMEERRVL4ez 03-30-2025 MR/POSTOPAN2 Normal [facility] Operative Reporton Operative Report Normal [facility] Bedside Glucoseon 03-29-2025 FINGERSTICK GLU 147 mg/dL High 74-106 [facility] Comment on above: Result Comment: BRISA MOROCHO OF PATIENT CARE PER NURSING PROTOCOL Performed By: #### L 501.080 ####[facility] [address] [place], [address] Absolute lymphocyte countOrd ered By: Day Bird on 03-11-2025 Lymphocytes Auto (Unsp spec) [#/Vol] 1.03 10*3/uL 0.83-4.51 [facility] Anion gap in Serum or Plasma Ordered By: Day Bird on 03-11-2025 Anion gap [Moles/Vol] 11 mmol/L 5-15 [facility] Automated lymphocyte count a s percentage of total leukocytesOrdered By: Day Bird on 03-11-2025 Lymphocytes/100 WBC Auto (Unsp spec) 12.6 % Low 19-41 [facility] BUN/creatinine ratioOrdered By: Day Bird on 03-11-2025 Urea nitrogen/Creatinine [Mass ratio] 12.0 mg/mg 10-20 [facility] Basic Metabolic Profile (BMP )on 03-11-2025 BUN/CRE 12.0 RATIO Normal 10-20 [facility] Comment on above: Performed By: #### L 500.2500, L100.0100, L501.6901 ####[facility] [address] [place], [address] Calcium [Mass/Vol] 8.0 mg/dL Normal 7.6-11.0 [facility] Comment on above: Performed By: #### L 500.2500, L100.0100, L501.6901 ####[facility] [address] [place], [address] Chloride [Moles/Vol] 96 mmol/L Low 98-108 [facility] Comment on above: Performed By: #### L 500.2500, L100.0100, L501.6901 ####[facility] [address] [place], [address] CO2 [Moles/Vol] 21.4 mmol/L Normal 21.0-32.0 [facility] Comment on above: Performed By: #### L 500.2500, L100.0100, L501.6901 ####[facility] [address] [place], [address] Creatinine [Mass/Vol] 1.30 mg/dL High 0.70-1.20 [facility] Comment on above: Performed By: #### L 500.2500, L100.0100, L501.6901 ####[facility] [address] [place], [address] ECRCL 69.27 ml/min Normal 50-250 [facility] Comment on above: Performed By: #### L 500.2500, L100.0100, L501.6901 ####[facility] [address] [place], [address] GAP 11 Normal 5-15 [facility] Comment on above: Performed By: #### L 500.2500, L100.0100, L501.6901 ####[facility] [address] [place], [address] GFR/1.73 sq M.predicted among non-blacks MDRD (S/P/Bld) [Vol rate/Area] 64 mL/min/{1.73_m2} Normal >60 [facility] Comment on above: Result Comment: mL/m in/1.73m2 CKD-EPI Creatinine Equation (2020) Performed By: #### L 500.2500, L100.0100, L501.6901 ####[facility] [address] [place], [address] Glucose [Mass/Vol] 495 mg/dL Invalid Interpretation Code 70-99 [facility] Comment on above: Result Comment: Crit ical Result(s) Called DEE ROCA at: 1812 by:LAURIE??Results read back by same. Performed By: #### L 500.2500, L100.0100, L501.6901 ####[facility] [address] [place], [address] Potassium [Moles/Vol] 2.8 mmol/L Low 3.3-5.1 [facility] Comment on above: Performed By: #### L 500.2500, L100.0100, L501.6901 ####[facility] [address] [place], [address] Sodium [Moles/Vol] 128 mmol/L Low 133-145 [facility] Comment on above: Performed By: #### L 500.2500, L100.0100, L501.6901 ####[facility] [address] [place], [address] Urea nitrogen [Mass/Vol] 16 mg/dL Normal 4-19 [facility] Comment on above: Performed By: #### L 500.2500, L100.0100, L501.6901 ####[facility] [address] [place], [address] Basophil percentageOrdered B y: Day Bird on 03-11-2025 Basophils/100 WBC (Bld) 0.6 % 0-1 [facility] Bedside Glucoseon 03-11-2025 FINGERSTICK GLU 412 mg/dL High -[address] [place] [address] Comment on above: Result Comment: BRISA MOROCHO OF PATIENT CARE PER NURSING PROTOCOL Performed By: #### L 501.080 ####[facility] [address] [place], [address] FINGERSTICK GLU 494 mg/dL Invalid Interpretation Code [address] Comment on above: Result Comment: Dr Amalia CabralMANAGEMENT OF PATIENT CARE PER NURSING PROTOCOL Performed By: #### L 501.080 ####[facility] [address] [place], [address] FINGERSTICK GLU > 500 Invalid Interpretation Code [address] Comment on above: Result Comment: Dr Amalia webster FollowedMANAGEMENT OF PATIENT CARE PER NURSING PROTOCOL Performed By: #### L 501.080 ####[facility] [address] [place], [address] Beta-Hydroxbytyrateon 2024 BETA-HYDROXYBUT 0.0 mmol/L Normal 0.0-0.3 [facility] Comment on above: Performed By: #### L 500.2500, L100.0100, L501.6901 ####[facility] [address] [place], [address] Beta-hydroxybutyrateOrdered By: Day Bird on 03-11-2025 Beta hydroxybutyrate [Mass/Vol] 0.0 mmol/L 0.0-0.3 [facility] Blood manual differential co mment interpretation (narrative result)Ordered By: Day Bird on 03-11-2025 Manual differential comment Marco Antonio (Bld) [Interp] SCANNED [facility] CBC W/Diff, Automatedon PLT EST MOD DEC Normal ADEQ [facility] Comment on above: Performed By: #### L 500.2500, L100.0100, L501.6901 ####[facility] [address] [place], [address] SMEAR COMMENT SCANNED Normal [facility] Comment on above: Performed By: #### L 500.2500, L100.0100, L501.6901 ####[facility] [address] [place], [address] Platelet mean volume (Bld) [Entitic vol] 12.1 fL High 6.2-12.0 [facility] Comment on above: Performed By: #### L 500.2500, L100.0100, L501.6901 ####[facility] [address] [place], [address] Platelets (Bld) [#/Vol] 94 10*3/uL Low 150-450 [facility] Comment on above: Performed By: #### L 500.2500, L100.0100, L501.6901 ####[facility] [address] [place], [address] Carbon dioxide, total [Moles /volume] in Central venous bloodOrdered By: Day Bird on 03-11-2025 CO2 [Moles/Vol] 21.4 mmol/L 21.0-32.0 [facility] Chloride assayOrdered By: Sarah Bird on 03-11-2025 Chloride [Moles/Vol] 96 mmol/L Low 98-108 [facility] Emergency Department Summary on 03-11-2025 Emergency Department Summary Normal [facility] Eosinophil percentageOrdered By: Day Bird on 03-11-2025 Eosinophils/100 WBC (Bld) 5.2 % High 0-5 [facility] Erythrocyte distribution wid th ratioOrdered By: Day Bird on 03-11-2025 Erythrocyte distribution width (RBC) [Ratio] 18.8 % High 11.6-14.6 [facility] Erythrocyte distribution wid th standard deviationOrdered By: Day Bird on 03-11-2025 Erythrocyte distribution width (RBC) [Ratio] 63.4 fl High 35.1-43.9 [facility] Glomerular filtration rate ( GFR) estimation/1.73 sq m using serum, plasma, or whole bOrdered By: Day Bird on 03-11-2025 GFR/1.73 sq M.predicted among non-blacks MDRD (S/P/Bld) [Vol rate/Area] 64 mL/min/{1.73_m2} >60 [facility] deOrdered By: Alber Dunn on 03-11-2025 Glucose [Mass/Vol] 412 mg/dL High 74-106 [facility] Hematocrit Auto (Bld) [Volum e fraction]Ordered By: Day Bird on 03-11-2025 Hematocrit (Bld) [Volume fraction] 23.7 % Low 40-54 [facility] Hemoglobin measurementOrdere d By: Day Bird on 03-11-2025 Hemoglobin (Bld) [Mass/Vol] 8.0 g/dL Low 13.0-16.5 [facility] Immature granulocytes/100 WB C Auto (Bld)Ordered By: Day Bird on 03-11-2025 Immature granulocytes/100 WBC (Bld) 0.500 % 0.0-0.9 [facility] MCV (mean corpuscular volume ) determinationOrdered By: Day Bird on 03-11-2025 MCV (RBC) [Entitic vol] 92.6 fL 80-94 [facility] Mean corpuscular hemoglobin (MCH) determinationOrdered By: Day Bird on 03-11-2025 MCH (RBC) [Entitic mass] 31.3 pg 27.0-32.0 [facility] Monocyte percentageOrdered B y: Day Bird on 03-11-2025 Monocytes/100 WBC (Bld) 10.9 % High 0-10 [facility] Neutrophil percentageOrdered By: Day Bird on 03-11-2025 Neutrophils/100 WBC (Bld) 70.2 % High 47-70 [facility] Platelet countOrdered By: Sarah Bird on 03-11-2025 Platelets (Bld) [#/Vol] 94 10*3/uL Low 150-450 [facility] Platelet estimateOrdered By: Day Bird on 03-11-2025 Platelets LM Ql (Bld) MOD DEC ADEQ [facility] Potassium measurement (mass/ volume)Ordered By: Day Bird on 03-11-2025 Potassium (Unsp spec) [Mass/Vol] 2.8 mmol/L Low 3.3-5.1 [facility] RBC Auto (Bld) [#/Vol]Ordere d By: Day Bird on 03-11-2025 RBC (Bld) [#/Vol] 2.56 10*6/uL Low 4.6-6.2 [facility] Serum creatinine measurement (mass/volume)Ordered By: Day Bird on 03-11-2025 Creatinine [Mass/Vol] 1.30 mg/dL High 0.70-1.20 [facility] Serum glucose measurement (m ass/volume)Ordered By: Day Bird on 03-11-2025 Glucose [Mass/Vol] 495 mg/dL High 70-99 [facility] Serum or plasma calcium roosevelt urement (mass/volume)Ordered By: Day Orellanaetelvina on 03-11-2025 Calcium [Mass/Vol] 8.0 mg/dL 7.6-11.0 [facility] Serum or plasma urea nitroge n measurement (mass/volume)Ordered By: Day Pelon on 03-11-2025 Urea nitrogen [Mass/Vol] 16 mg/dL 4-19 [facility] Sodium levelOrdered By: Day Pelon on 03-11-2025 Sodium [Moles/Vol] 128 mmol/L Low 133-145 [facility] White blood cell (WBC) count Ordered By: Day Pelon on 03-11-2025 WBC (Bld) [#/Vol] 8.2 10*3/uL 4.4-11.0 [facility] MR/PAT.ANEon 03-10-2025 MR/PAT.ANE Normal [facility] Surgery Visit Reporton 03-10 Surgery Visit Report Normal [facility] Paracentesis with USon 03-04 Paracentesis with US Normal [facility] Culture, Anaerobic Any Sourc iliana 03-03-2025 CUAN No growth in 5 days. Normal [facility] Comment on above: Performed By: #### M 100.2900, M100.4001, M100.2000, L200.0200, L400.0001 ####[facility] [address] [place], [address] Body Fluid Cell Count+Diffon 02-28-2025 PATH COMM/BF Reviewed Normal [facility] Comment on above: Order Comment: The r eference range and other method performancespecifications have not been established for this bodyfluid. The test must be integrated into the clinicalcontext for interpretation. Result Comment: NO M ALIGNANT CELLS IDENTIFIED.Pamella Umana MD 02/28/2025 AMENDED REPORT 02/28/25 1556 PATH COMM/BF previously reported as: May follow Performed By: #### M 100.2900, M100.4001, M100.2000, L200.0200, L400.0001 ####[facility] [address] [place], [address] Absolute lymphocyte countOrd ered By: Rick Carlin on 02-27-2025 Lymphocytes Auto (Unsp spec) [#/Vol] 1.53 10*3/uL 0.83-4.51 [facility] Anion gap in Serum or Plasma Ordered By: Rick Carlin on 02-27-2025 Anion gap [Moles/Vol] 10 mmol/L 5-15 [facility] Automated lymphocyte count a s percentage of total leukocytesOrdered By: Rick Carlin on 02-27-2025 Lymphocytes/100 WBC Auto (Unsp spec) 18.6 % Low 19-41 [facility] BUN/creatinine ratioOrdered By: Rick Carlin on 02-27-2025 Urea nitrogen/Creatinine [Mass ratio] 13.0 mg/mg 10-20 [facility] Basophil percentageOrdered B y: Rick Carlin on 02-27-2025 Basophils/100 WBC (Bld) 0.9 % 0-1 [facility] Bedside Glucoseon 02-27-2025 FINGERSTICK GLU 368 mg/dL High 74-106 [facility] Comment on above: Result Comment: BRISA GEMENT OF PATIENT CARE PER NURSING PROTOCOL Performed By: #### L 501.080 ####[facility] [address] [place], [address] FINGERSTICK GLU 265 mg/dL High 74-106 [facility] Comment on above: Result Comment: BRISA GEMENT OF PATIENT CARE PER NURSING PROTOCOL Performed By: #### L 501.080 ####[facility] [address] [place], [address] Bilirubin, totalOrdered By: Rick Carlin on 02-27-2025 Bilirubin [Mass/Vol] 4.15 mg/dL High 0.00-1.30 [facility] Blood manual differential co mment interpretation (narrative result)Ordered By: Rick Carlin on 02-27-2025 Manual differential comment Marco Antonio (Bld) [Interp] SCANNED [facility] Blood polychromasia detectio n by light microscopyOrdered By: Rick Carlin on 02-27-2025 Polychromasia LM Ql (Bld) 1+ [facility] CBC W/Diff, Automatedon 02-02 Anisocytosis Ql (Bld) 2+ Normal [facility] Comment on above: Performed By: #### L 500.4050, L100.0100 ####[facility] [address] [place], [address] OVALOCYTE 1+ Normal [facility] Comment on above: Performed By: #### L 500.4050, L100.0100 ####[facility] [address] [place], [address] PLT EST SLT DEC Normal ADEQ [facility] Comment on above: Performed By: #### L 500.4050, L100.0100 ####[facility] [address] [place], [address] POLYCHROMASIA 1+ Normal [facility] Comment on above: Performed By: #### L 500.4050, L100.0100 ####[facility] [address] [place], [address] SMEAR COMMENT SCANNED Normal [facility] Comment on above: Performed By: #### L 500.4050, L100.0100 ####[facility] [address] [place], [address] Carbon dioxide, total [Moles /volume] in Central venous bloodOrdered By: Rick Carlin on 02-27-2025 CO2 [Moles/Vol] 20.8 mmol/L Low 21.0-32.0 [facility] Chloride assayOrdered By: Lissette Carlin on 02-27-2025 Chloride [Moles/Vol] 101 mmol/L 98-108 [facility] Comprehensive Metabolic Prof ilon 02-27-2025 Albumin [Mass/Vol] 2.2 g/dL Low 3.5-5.0 [facility] Comment on above: Performed By: #### L 500.4050, L100.0100 ####[facility] [address] [place], [address] Albumin/Globulin [Mass ratio] 0.7 {ratio} Low 0.9-2.4 [facility] Comment on above: Performed By: #### L 500.4050, L100.0100 ####[facility] [address] [place], [address] ALK PHOS 244 U/L High 40-129 [facility] Comment on above: Performed By: #### L 500.4050, L100.0100 ####[facility] [address] [place], [address] ALT [Catalytic activity/Vol] 43 U/L Normal <=46 [facility] Comment on above: Performed By: #### L 500.4050, L100.0100 ####[facility] [address] [place], [address] AST [Catalytic activity/Vol] 65 U/L High <=37 [facility] Comment on above: Performed By: #### L 500.4050, L100.0100 ####[facility] [address] [place], [address] Bilirubin [Mass/Vol] 4.15 mg/dL High 0.00-1.30 [facility] Comment on above: Performed By: #### L 500.4050, L100.0100 ####[facility] [address] [place], [address] BUN/CRE 13.0 RATIO Normal 10-20 [facility] Comment on above: Performed By: #### L 500.4050, L100.0100 ####[facility] [address] [place], [address] Calcium [Mass/Vol] 8.0 mg/dL Normal 7.6-11.0 [facility] Comment on above: Performed By: #### L 500.4050, L100.0100 ####[facility] [address] [place], [address] Chloride [Moles/Vol] 101 mmol/L Normal 98-108 [facility] Comment on above: Performed By: #### L 500.4050, L100.0100 ####[facility] [address] [place], [address] CO2 [Moles/Vol] 20.8 mmol/L Low 21.0-32.0 [facility] Comment on above: Performed By: #### L 500.4050, L100.0100 ####[facility] [address] [place], [address] Creatinine [Mass/Vol] 1.14 mg/dL Normal 0.70-1.20 [facility] Comment on above: Performed By: #### L 500.4050, L100.0100 ####[facility] [address] [place], [address] ECRCL 78.45 ml/min Normal 50-250 [facility] Comment on above: Performed By: #### L 500.4050, L100.0100 ####[facility] [address] [place], [address] GAP 10 Normal 5-15 [facility] Comment on above: Performed By: #### L 500.4050, L100.0100 ####[facility] [address] [place], [address] GFR/1.73 sq M.predicted among non-blacks MDRD (S/P/Bld) [Vol rate/Area] 75 mL/min/{1.73_m2} Normal >60 [facility] Comment on above: Result Comment: mL/m in/1.73m2 CKD-EPI Creatinine Equation (2020) Performed By: #### L 500.4050, L100.0100 ####[facility] [address] [place], [address] Globulin (S) [Mass/Vol] 3.3 g/dL Normal 2.2-4.2 [facility] Comment on above: Performed By: #### L 500.4050, L100.0100 ####[facility] [address] [place], [address] Glucose [Mass/Vol] 272 mg/dL High 70-99 [facility] Comment on above: Performed By: #### L 500.4050, L100.0100 ####[facility] [address] [place], [address] Potassium [Moles/Vol] 3.2 mmol/L Low 3.3-5.1 [facility] Comment on above: Performed By: #### L 500.4050, L100.0100 ####[facility] [address] [place], [address] Sodium [Moles/Vol] 131 mmol/L Low 133-145 [facility] Comment on above: Performed By: #### L 500.4050, L100.0100 ####[facility] [address] [place], [address] T PROT 5.5 g/dL Low 5.9-8.4 [facility] Comment on above: Performed By: #### L 500.4050, L100.0100 ####[facility] [address] [place], [address] Urea nitrogen [Mass/Vol] 15 mg/dL Normal 4-19 [facility] Comment on above: Performed By: #### L 500.4050, L100.0100 ####[facility] [address] [place], [address] Discharge Instructionon 02-02 Discharge Instruction Normal [facility] Eosinophil percentageOrdered By: Rick Carlin on 02-27-2025 Eosinophils/100 WBC (Bld) 6.2 % High 0-5 [facility] Erythrocyte distribution wid th ratioOrdered By: Rick Carlin on 02-27-2025 Erythrocyte distribution width (RBC) [Ratio] 21.7 % High 11.6-14.6 [facility] Erythrocyte distribution wid th standard deviationOrdered By: Rick Carlin on 02-27-2025 Erythrocyte distribution width (RBC) [Ratio] 68.2 fl High 35.1-43.9 [facility] Glomerular filtration rate ( GFR) estimation/1.73 sq m using serum, plasma, or whole bOrdered By: Rick Carlin on 02-27-2025 GFR/1.73 sq M.predicted among non-blacks MDRD (S/P/Bld) [Vol rate/Area] 75 mL/min/{1.73_m2} >60 [facility] deOrdered By: Rick Carlin on 02-27-2025 Glucose [Mass/Vol] 368 mg/dL High 74-106 [facility] Hematocrit Auto (Bld) [Volum e fraction]Ordered By: Rick Carlin on 02-27-2025 Hematocrit (Bld) [Volume fraction] 24.0 % Low 40-54 [facility] Hemoglobin measurementOrdere d By: Rick Carlin on 02-27-2025 Hemoglobin (Bld) [Mass/Vol] 8.2 g/dL Low 13.0-16.5 [facility] Immature granulocytes/100 WB C Auto (Bld)Ordered By: Rick Carlin on 02-27-2025 Immature granulocytes/100 WBC (Bld) 0.400 % 0.0-0.9 [facility] MCV (mean corpuscular volume ) determinationOrdered By: Rick Carlin on 02-27-2025 MCV (RBC) [Entitic vol] 89.6 fL 80-94 [facility] Mean corpuscular hemoglobin (MCH) determinationOrdered By: Rick Carlin on 02-27-2025 MCH (RBC) [Entitic mass] 30.6 pg 27.0-32.0 [facility] Monocyte percentageOrdered B y: Rick Carlin on 02-27-2025 Monocytes/100 WBC (Bld) 12.5 % High 0-10 [facility] Neutrophil percentageOrdered By: Rick Carlin on 02-27-2025 Neutrophils/100 WBC (Bld) 61.4 % 47-70 [facility] No Panel InformationOrdered By: Rick Carlin on 02-27-2025 2+ [facility] 65 U/L High <38 [facility] Ovalocyte detectionOrdered B y: Rick Carlin on 02-27-2025 Ovalocytes LM Ql (Bld) 1+ [facility] Platelet countOrdered By: Lissette Carlin on 02-27-2025 Platelets (Bld) [#/Vol] 133 10*3/uL Low 150-450 [facility] Platelet estimateOrdered By: Rick Carlin on 02-27-2025 Platelets LM Ql (Bld) SLT DEC ADEQ [facility] Potassium measurement (mass/ volume)Ordered By: Rick Carlin on 02-27-2025 Potassium (Unsp spec) [Mass/Vol] 3.2 mmol/L Low 3.3-5.1 [facility] RBC Auto (Bld) [#/Vol]Ordere d By: Rick Carlin on 02-27-2025 RBC (Bld) [#/Vol] 2.68 10*6/uL Low 4.6-6.2 [facility] Serum creatinine measurement (mass/volume)Ordered By: Rick Carlin on 02-27-2025 Creatinine [Mass/Vol] 1.14 mg/dL 0.70-1.20 [facility] Serum globulin measurementOr dered By: Rick Carlin on 02-27-2025 Globulin (S) [Mass/Vol] 3.3 g/dL 2.2-4.2 [facility] Serum glucose measurement (m ass/volume)Ordered By: Rick Carlin on 02-27-2025 Glucose [Mass/Vol] 272 mg/dL High 70-99 [facility] Serum or plasma alanine thomas otransferase (ALT) measurementOrdered By: Rick Carlin on 02-27-2025 ALT [Catalytic activity/Vol] 43 U/L <47 [facility] Serum or plasma albumin roosevelt urement (mass/volume)Ordered By: Rick Carlin on 02-27-2025 Albumin [Mass/Vol] 2.2 g/dL Low 3.5-5.0 [facility] Serum or plasma albumin/glob ulin mass ratioOrdered By: Rick Carlin on 02-27-2025 Albumin/Globulin [Mass ratio] 0.7 {ratio} Low 0.9-2.4 [facility] Serum or plasma alkaline kendrick sphatase measurementOrdered By: Rick Carlin on 02-27-2025 ALP [Catalytic activity/Vol] 244 U/L High 40-129 [facility] Serum or plasma calcium roosevelt urement (mass/volume)Ordered By: Rick Carlin on 02-27-2025 Calcium [Mass/Vol] 8.0 mg/dL 7.6-11.0 [facility] Serum or plasma urea nitroge n measurement (mass/volume)Ordered By: Rick Carlin on 02-27-2025 Urea nitrogen [Mass/Vol] 15 mg/dL 4-19 [facility] Sodium levelOrdered By: Rick Carlin on 02-27-2025 Sodium [Moles/Vol] 131 mmol/L Low 133-145 [facility] Total proteinOrdered By: Meredith Carlin on 02-27-2025 Protein [Mass/Vol] 5.5 g/dL Low 5.9-8.4 [facility] White blood cell (WBC) count Ordered By: Rick Carlin on 02-27-2025 WBC (Bld) [#/Vol] 8.2 10*3/uL 4.4-11.0 [facility] Bedside Glucoseon 02-26-2025 FINGERSTICK GLU 323 mg/dL High 74-106 [facility] Comment on above: Result Comment: BRISA MOROCHO OF PATIENT CARE PER NURSING PROTOCOL Performed By: #### L 501.080 ####[facility] [address] [place], [address] FINGERSTICK GLU 359 mg/dL High 74-106 [facility] Comment on above: Result Comment: BRISA GEMENT OF PATIENT CARE PER NURSING PROTOCOL Performed By: #### L 501.080 ####[facility] [address] [place], [address] FINGERSTICK GLU 344 mg/dL High 74-106 [facility] Comment on above: Result Comment: BRISA GEMENT OF PATIENT CARE PER NURSING PROTOCOL Performed By: #### L 501.080 ####[facility] [address] [place], [address] FINGERSTICK GLU 267 mg/dL High 74-106 [facility] Comment on above: Result Comment: RBISA GEMENT OF PATIENT CARE PER NURSING PROTOCOL Performed By: #### L 501.080 ####[facility] [address] [place], [address] Body Fluid Culton 02-26-2025 BFC Culture exhibits no growth. Normal [facility] Comment on above: Performed By: #### M 100.2900, M100.4001, M100.2000, L200.0200, L400.0001 ####[facility] [address] [place], [address] CBC W/Diff, Automatedon 07- Anisocytosis Ql (Bld) 2+ Normal [facility] Comment on above: Performed By: #### L 100.0100, L500.4050 ####[facility] [address] [place], [address] SMEAR COMMENT SCANNED Normal [facility] Comment on above: Performed By: #### L 100.0100, L500.4050 ####[facility] [address] [place], [address] Comprehensive Metabolic Prof ilon 02-26-2025 Albumin [Mass/Vol] 2.4 g/dL Low 3.5-5.0 [facility] Comment on above: Performed By: #### L 100.0100, L500.4050 ####[facility] [address] [place], [address] Albumin/Globulin [Mass ratio] 0.7 {ratio} Low 0.9-2.4 [facility] Comment on above: Performed By: #### L 100.0100, L500.4050 ####[facility] [address] [place], [address] ALK PHOS 258 U/L High 40-129 [facility] Comment on above: Performed By: #### L 100.0100, L500.4050 ####[facility] [address] [place], [address] ALT [Catalytic activity/Vol] 50 U/L High <=46 [facility] Comment on above: Performed By: #### L 100.0100, L500.4050 ####[facility] [address] [place], [address] AST [Catalytic activity/Vol] 78 U/L High <=37 [facility] Comment on above: Performed By: #### L 100.0100, L500.4050 ####[facility] [address] [place], [address] Bilirubin [Mass/Vol] 5.33 mg/dL High 0.00-1.30 [facility] Comment on above: Performed By: #### L 100.0100, L500.4050 ####[facility] [address] [place], [address] BUN/CRE 12.9 RATIO Normal 10-20 [facility] Comment on above: Performed By: #### L 100.0100, L500.4050 ####[facility] [address] [place], [address] Calcium [Mass/Vol] 8.3 mg/dL Normal 7.6-11.0 [facility] Comment on above: Performed By: #### L 100.0100, L500.4050 ####[facility] [address] [place], [address] Chloride [Moles/Vol] 102 mmol/L Normal 98-108 [facility] Comment on above: Performed By: #### L 100.0100, L500.4050 ####[facility] [address] [place], [address] CO2 [Moles/Vol] 19.6 mmol/L Low 21.0-32.0 [facility] Comment on above: Performed By: #### L 100.0100, L500.4050 ####[facility] [address] [place], [address] Creatinine [Mass/Vol] 1.03 mg/dL Normal 0.70-1.20 [facility] Comment on above: Result Comment: Icte daquan present, Results may be affected. Performed By: #### L 100.0100, L500.4050 ####[facility] [address] [place], [address] ECRCL 86.83 ml/min Normal 50-250 [facility] Comment on above: Performed By: #### L 100.0100, L500.4050 ####[facility] [address] [place], [address] GAP 12 Normal 5-15 [facility] Comment on above: Performed By: #### L 100.0100, L500.4050 ####[facility] [address] [place], [address] GFR/1.73 sq M.predicted among non-blacks MDRD (S/P/Bld) [Vol rate/Area] 84 mL/min/{1.73_m2} Normal >60 [facility] Comment on above: Result Comment: mL/m in/1.73m2 CKD-EPI Creatinine Equation (2020) Performed By: #### L 100.0100, L500.4050 ####[facility] [address] [place], [address] Globulin (S) [Mass/Vol] 3.6 g/dL Normal 2.2-4.2 [facility] Comment on above: Performed By: #### L 100.0100, L500.4050 ####[facility] [address] [place], [address] Glucose [Mass/Vol] 269 mg/dL High 70-99 [facility] Comment on above: Performed By: #### L 100.0100, L500.4050 ####[facility] [address] [place], [address] Potassium [Moles/Vol] 3.0 mmol/L Low 3.3-5.1 [facility] Comment on above: Performed By: #### L 100.0100, L500.4050 ####[facility] [address] [place], [address] Sodium [Moles/Vol] 133 mmol/L Normal 133-145 [facility] Comment on above: Performed By: #### L 100.0100, L500.4050 ####[facility] [address] [place], [address] T PROT 6.0 g/dL Normal 5.9-8.4 [facility] Comment on above: Performed By: #### L 100.0100, L500.4050 ####[facility] [address] [place], [address] Urea nitrogen [Mass/Vol] 13 mg/dL Normal 4-19 [facility] Comment on above: Performed By: #### L 100.0100, L500.4050 ####[facility] [address] [place], [address] Gram Stainon 02-26-2025 GS Centrifuged Specimen ? Culture performed on centrifuged specimen Gram Stain No organisms seen Rare White Blood Cells Normal [facility] Comment on above: Performed By: #### M 100.2900, M100.4001, M100.2000, L200.0200, L400.0001 ####[facility] [address] [place], [address] Prothrombin Time w/INRon INR Coag (PPP) [Relative time] 2.1 {INR} Normal [facility] Comment on above: Order Comment: Comme nts: Add onto previous labs if possible Performed By: #### L 300.3900 ####[facility] [address] [place], [address] PT Coag (PPP) [Time] 23.7 s High 11.7-14.9 [facility] Comment on above: Order Comment: Comme nts: Add onto previous labs if possible Performed By: #### L 300.3900 ####[facility] [address] [place], [address] Prothrombin timeOrdered By: Kathie Powers on 02-26-2025 PT Coag (PPP) [Time] 23.7 s High 11.7-14.9 [facility] Ammoniaon 02-25-2025 Ammonia (P) [Moles/Vol] 127.0 umol/L High 16-60 [facility] Comment on above: Performed By: #### L 503.5510, L100.0100, L501.2450, L500.4050 ####[facility] [address] [place], [address] Anaerobic cultureOrdered By: Herberth Carlson on 02-25-2025 Bacteria identified Anaer cx Nom (Unsp spec) No growth in 5 days. [facility] Bedside Glucoseon 02-25-2025 FINGERSTICK GLU 271 mg/dL High 74-106 [facility] Comment on above: Result Comment: BRISA MOROCHO OF PATIENT CARE PER NURSING PROTOCOL Performed By: #### L 501.080 ####[facility] [address] [place], [address] FINGERSTICK GLU 192 mg/dL High 74-106 [facility] Comment on above: Result Comment: BRISA MOROCHO OF PATIENT CARE PER NURSING PROTOCOL Performed By: #### L 501.080 ####[facility] [address] [place], [place], [address] Bilirubin Test strip Ql (U)O rdered By: Herberth Carlson on 02-25-2025 Bilirubin Ql (U) 3 mg/dL High Negative [facility] Body fluid appearance (nomin al result)Ordered By: Herberth Carlson on 02-25-2025 Appearance (Body fld) SL CLDY [facility] Body fluid color determinati onOrdered By: Herberth Carlson on 02-25-2025 Color (Body fld) YELLOW [facility] Body fluid cultureOrdered By : Herberth Carlson on 02-25-2025 Microbial culture, body fluid Culture exhibits no growth. [facility] Body fluid leukocytes count (number/volume)Ordered By: Herberth Carlson on 02-25-2025 WBC (Body fld) [#/Vol] 0.153 10*3/uL [facility] Body fluid lymphocytes/100 l eukocytesOrdered By: Herberth Carlson on 02-25-2025 Lymphocytes/100 WBC (Body fld) 6 % [facility] Body fluid macrophage countO rdered By: Herberth Carlson on 02-25-2025 Macrophages (Body fld) [#/Vol] 75 % [facility] Body fluid mesothelial cell percentageOrdered By: Herberth Carlson on 02-25-2025 Mesothelial cells/100 WBC (Body fld) 10 % [facility] Body fluid mononuclear cell percentageOrdered By: Herberth Carlson on 02-25-2025 Mononuclear cells/100 WBC (Body fld) 90.1 % [facility] Body fluid segmented neutrop hils count (number/volume)Ordered By: Herberth Carlson on 02-25-2025 Segmented neutrophils (Body fld) [#/Vol] 4 % [facility] Body fluid total cell countO rdered By: Herberth Carlson on 02-25-2025 Cells Counted Total (Body fld) [#] 0.207 10^3/ul [facility] CBC W/Diff, Automatedon 02-02 Anisocytosis Ql (Bld) 1+ Normal [facility] Comment on above: Performed By: #### L 503.5510, L100.0100, L501.2450, L500.4050 ####[facility] [address] [place], [address] Comprehensive Metabolic Prof cton 02-25-2025 Albumin [Mass/Vol] 2.0 g/dL Low 3.5-5.0 [facility] Comment on above: Performed By: #### L 503.5510, L100.0100, L501.2450, L500.4050 ####[facility] [address] [place], [address] Albumin/Globulin [Mass ratio] 0.5 {ratio} Low 0.9-2.4 [facility] Comment on above: Performed By: #### L 503.5510, L100.0100, L501.2450, L500.4050 ####[facility] [address] [place], [address] ALK PHOS 249 U/L High 40-129 [facility] Comment on above: Performed By: #### L 503.5510, L100.0100, L501.2450, L500.4050 ####[facility] [address] [place], [address] ALT [Catalytic activity/Vol] 51 U/L High <=46 [facility] Comment on above: Result Comment: Hemo lysis present, Results??could be affected.?? Performed By: #### L 503.5510, L100.0100, L501.2450, L500.4050 ####[facility] [address] [place], [address] AST [Catalytic activity/Vol] 97 U/L High <=37 [facility] Comment on above: Result Comment: Hemo lysis present, Results??could be affected.?? Performed By: #### L 503.5510, L100.0100, L501.2450, L500.4050 ####[facility] [address] [place], [address] Bilirubin [Mass/Vol] 4.99 mg/dL High 0.00-1.30 [facility] Comment on above: Performed By: #### L 503.5510, L100.0100, L501.2450, L500.4050 ####[facility] [address] [place], [address] BUN/CRE 8.9 RATIO Low 10-20 [facility] Comment on above: Performed By: #### L 503.5510, L100.0100, L501.2450, L500.4050 ####[facility] [address] [place], [address] Calcium [Mass/Vol] 8.1 mg/dL Normal 7.6-11.0 [facility] Comment on above: Performed By: #### L 503.5510, L100.0100, L501.2450, L500.4050 ####[facility] [address] [place], [address] Chloride [Moles/Vol] 102 mmol/L Normal 98-108 [facility] Comment on above: Performed By: #### L 503.5510, L100.0100, L501.2450, L500.4050 ####[facility] [address] [place], [address] CO2 [Moles/Vol] 17.5 mmol/L Low 21.0-32.0 [facility] Comment on above: Performed By: #### L 503.5510, L100.0100, L501.2450, L500.4050 ####[facility] [address] [place], [address] Creatinine [Mass/Vol] 1.07 mg/dL Normal 0.70-1.20 [facility] Comment on above: Result Comment: Icte daquan present, Results may be affected. Performed By: #### L 503.5510, L100.0100, L501.2450, L500.4050 ####[facility] [address] [place], [address] ECRCL 86.96 ml/min Normal 50-250 [facility] Comment on above: Performed By: #### L 503.5510, L100.0100, L501.2450, L500.4050 ####[facility] [address] [place], [address] GAP 12 Normal 5-15 [facility] Comment on above: Performed By: #### L 503.5510, L100.0100, L501.2450, L500.4050 ####[facility] [address] [place], [address] GFR/1.73 sq M.predicted among non-blacks MDRD (S/P/Bld) [Vol rate/Area] 80 mL/min/{1.73_m2} Normal >60 [facility] Comment on above: Result Comment: mL/m in/1.73m2 CKD-EPI Creatinine Equation (2020) Performed By: #### L 503.5510, L100.0100, L501.2450, L500.4050 ####[facility] [address] [place], [address] Globulin (S) [Mass/Vol] 3.9 g/dL Normal 2.2-4.2 [facility] Comment on above: Performed By: #### L 503.5510, L100.0100, L501.2450, L500.4050 ####[facility] [address] [place], [address] Glucose [Mass/Vol] 225 mg/dL High 70-99 [facility] Comment on above: Performed By: #### L 503.5510, L100.0100, L501.2450, L500.4050 ####[facility] [address] [place], [address] Potassium [Moles/Vol] 3.7 mmol/L Normal 3.3-5.1 [facility] Comment on above: Result Comment: Hemo lysis present, Results??could be affected.?? Performed By: #### L 503.5510, L100.0100, L501.2450, L500.4050 ####[facility] [address] [place], [address] Sodium [Moles/Vol] 131 mmol/L Low 133-145 [facility] Comment on above: Performed By: #### L 503.5510, L100.0100, L501.2450, L500.4050 ####[facility] [address] [place], [address] T PROT 5.9 g/dL Normal 5.9-8.4 [facility] Comment on above: Performed By: #### L 503.5510, L100.0100, L501.2450, L500.4050 ####[facility] [address] [place], [address] Urea nitrogen [Mass/Vol] 10 mg/dL Normal 4-19 [facility] Comment on above: Performed By: #### L 503.5510, L100.0100, L501.2450, L500.4050 ####[facility] [address] [place], [address] Emergency Department Summary on 02-25-2025 Emergency Department Summary Normal [facility] Gram stainOrdered By: Lopez Carlson on 02-25-2025 Microscopic observation Gram stain Nom (Unsp spec) [facility] H AND P Exam - Hospitaliston 02-25-2025 H&P Exam - Hospitalist Normal [facility] Ketones Test strip Ql (U)Ord ered By: Herberth Carlson on 02-25-2025 Ketones Ql (U) 5 mg/dl High Negative [facility] Lipaseon 02-25-2025 Lipase [Catalytic activity/Vol] 64 U/L Normal 13-75 [facility] Comment on above: Result Comment: Plea se note:LIPASE revised reference range effective 22.New Lipase methodology. Expected to produce lower valuesthan the previous assay method.NEW Reference Range: 13 - 75 U/L Performed By: #### L 503.5510, L100.0100, L501.2450, L500.4050 ####[facility] [address] [place], [address] MR/CON.PCM.GIon 02-25-2025 MR/CON.PCM.GI Normal [facility] Monocyte detectionOrdered By : Herberth Carlson on 02-25-2025 Monocytes/100 WBC (Bld) 5 % [facility] Mucus LM Ql (Urine sed)Order ed By: Herberth Carlson on 02-25-2025 Mucus Ql (Urine sed) 0 SEEN /hpf [facility] Nitrite Test strip Ql (U)Ord ered By: Herberth Carlson on 02-25-2025 Nitrite Ql (U) Negative Negative [facility] No Panel InformationOrdered By: Herberth Carlson on 02-25-2025 283 /mm3 [facility] SEE COMMENT [facility] Pathologist interpretation o f Body fluid testsOrdered By: Herberth Carlson on 02-25-2025 Pathologist interpretation (Body fld) [Interp] Reviewed [facility] Protein Test strip Ql (U)Ord ered By: Herberth Carlson on 02-25-2025 Protein Ql (U) 100 mg/dl High Negative [facility] Specimen source identificati on of body fluidOrdered By: Herberth Carlson on 02-25-2025 Specimen source Nom (Body fld) ASCITES FLUID [facility] Squamous epithelial cells de tection in urine sediment by light microscopyOrdered By: Herberth Carlson on 02-25-2025 Epithelial cells.squamous LM Ql (Urine sed) 0 SEEN /hpf 0-5 [facility] Urinalysis, Completeon 02-25 RBC > 100 SEEN Normal 0-5 [facility] Comment on above: Order Comment: COLOR OF URINE MAY AFFECT DIPSTICK RESULTS.CLEAN CATCH Result Comment: Micr oscopic field is filled. Other elements may beobscured. Performed By: #### M 100.2900, M100.4001, M100.2000, L200.0200, L400.0001 ####[facility] [address] [place], [address] WBC >100 SEEN Normal 0-5 [facility] Comment on above: Order Comment: COLOR OF URINE MAY AFFECT DIPSTICK RESULTS.CLEAN CATCH Result Comment: Micr oscopic field is filled. Other elements may beobscured. Performed By: #### M 100.2900, M100.4001, M100.1999, L200.0200, L400.0001 ####[facility] [address] [place], [address] YEAST 2+ /hpf Normal None Seen [facility] Comment on above: Order Comment: COLOR OF URINE MAY AFFECT DIPSTICK RESULTS.CLEAN CATCH Performed By: #### M 100.2900, M100.4001, M100.2000, L200.0200, L400.0001 ####[facility] [address] [place], [address] BACTERIA 0 SEEN Normal None Seen [facility] Comment on above: Order Comment: COLOR OF URINE MAY AFFECT DIPSTICK RESULTS.CLEAN CATCH Performed By: #### M 100.2900, M100.4001, M100.2000, L200.0200, L400.0001 ####[facility] [address] [place], [address] EPI,SQUAMOUS 0 SEEN Normal 0-5 [facility] Comment on above: Order Comment: COLOR OF URINE MAY AFFECT DIPSTICK RESULTS.CLEAN CATCH Performed By: #### M 100.2900, M100.4001, M100.2000, L200.0200, L400.0001 ####[facility] [address] [place], [address] Mucus Ql (Urine sed) 0 SEEN Normal [facility] Comment on above: Order Comment: COLOR OF URINE MAY AFFECT DIPSTICK RESULTS.CLEAN CATCH Performed By: #### M 100.2900, M100.4001, M100.2000, L200.0200, L400.0001 ####[facility] [address] [place], [address] Urine clarityOrdered By: Digna Carlson on 02-25-2025 Clarity (U) Cloudy Clear [facility] Urine color determinationOrd ered By: Herberth Carlson on 02-25-2025 Color (U) Red Yellow [facility] Urine glucose detectionOrder ed By: Herberth Carlson on 02-25-2025 Glucose Ql (U) 100 mg/dl High Normal [facility] Urine leukocyte esterase det ection by dipstickOrdered By: Herberth Carlson on 02-25-2025 Leukocyte esterase Test strip Ql (U) 500 /ul High Negative [facility] Urine pHOrdered By: Herberth Carlson on 02-25-2025 pH (U) 6.5 [pH] 5.0 - 8.0 [facility] Urine sediment bacteria coun t by microscopy (number/high power field)Ordered By: Herberth Carlson on 02-25-2025 Bacteria LM.HPF (Urine sed) [#/Area] 0 /[HPF] None Seen [facility] Urine sediment yeast count b y microscopy (number/high powered field)Ordered By: Herberth Carlson on 02-25-2025 Yeast LM.HPF (Urine sed) [#/Area] 2 /[HPF] None Seen [facility] Urine specific gravity measu rementOrdered By: Herberth Carlson on 02-25-2025 Specific gravity (U) [Rel density] 1.015 1.002-1.030 [facility] Urine urobilinogen measureme ntOrdered By: Herberth Carlson on 02-25-2025 Urobilinogen Ql (U) Normal mg/dl Normal [facility] Venous blood ammonia measure mentOrdered By: Herberth Carlson on 02-25-2025 Ammonia (P) [Moles/Vol] 127.0 umol/L High 16-60 [facility] White blood cell countOrdere d By: Herberth Carlson on 02-25-2025 White blood cell count >100 SEEN /hpf 0-5 [facility] Hepatitis Panel Acuteon 02-01 COMMENT Comment Normal . [facility] Comment on above: Result Comment: Not infected with HCV unless early or acute infection issuspected (which may be delayed in an immunocompromisedindividual), or other evidence exists to indicate HCVinfection.Performed at: [facility] [id number] Director: Buck Ivy PhD, Phone: [phone] Performed By: #### L 100.0100, L500.4050, L3000.0375, L503.5510 ####[facility] [address] [place], [address] HEP B CORE,IgM Negative Normal Negative [facility] Comment on above: Performed By: #### L 100.0100, L500.4050, L3000.0375, L503.5510 ####[facility] [address] [place], [address] HEP B SURF AG Negative Normal Negative [facility] Comment on above: Performed By: #### L 100.0100, L500.4050, L3000.0375, L503.5510 ####[facility] [address] [place], [address] HEP C VIRUS AB Non-Reactive Normal Non Reactive [facility] Comment on above: Performed By: #### L 100.0100, L500.4050, L3000.0375, L503.5510 ####[facility] [address] [place], [address] HEPATITIS A-IgM Negative Normal Negative [facility] Comment on above: Result Comment: A ne gative anti-HAV IgM result suggests no recent orcurrent HAV infection. Performed By: #### L 100.0100, L500.4050, L3000.0375, L503.5510 ####[facility] [address] [place], [place], [id number] Anion gap in Serum or Plasma Ordered By: Jae Ash on 02-17-2025 Anion gap [Moles/Vol] 10 mmol/L 5-15 [facility] BUN/creatinine ratioOrdered By: Jae Ash on 02-17-2025 Urea nitrogen/Creatinine [Mass ratio] 9.7 mg/mg Low 10-20 [facility] Bedside Glucoseon 02-17-2025 FINGERSTICK GLU 194 mg/dL High 74-106 [facility] Comment on above: Result Comment: BRISA GEMENT OF PATIENT CARE PER NURSING PROTOCOL Performed By: #### L 501.080 ####[facility] [address] [place], [place], [address] Bilirubin, totalOrdered By: Jae Ash on 02-17-2025 Bilirubin [Mass/Vol] 6.79 mg/dL High 0.00-1.30 [facility] Blood manual differential co mment interpretation (narrative result)Ordered By: Jae Ash on 02-17-2025 Manual differential comment Marco Antonio (Bld) [Interp] SCANNED [facility] CBC-Complete Blood Cnt No Di ffon 02-17-2025 Erythrocyte distribution width (RBC) [Ratio] 19.0 % High 11.6-14.6 [facility] Comment on above: Performed By: #### L 500.4050, L100.4500, L300.3900, L100.0500 ####[facility] [address] [place], [address] Hematocrit (Bld) [Volume fraction] 21.9 % Low 40-54 [facility] Comment on above: Performed By: #### L 500.4050, L100.4500, L300.3900, L100.0500 ####[facility] [address] [place], [address] Hemoglobin (Bld) [Mass/Vol] 7.7 g/dL Low 13.0-16.5 [facility] Comment on above: Performed By: #### L 500.4050, L100.4500, L300.3900, L100.0500 ####[facility] [address] [place], [address] MCH (RBC) [Entitic mass] 30.0 pg Normal 27.0-32.0 [facility] Comment on above: Performed By: #### L 500.4050, L100.4500, L300.3900, L100.0500 ####[facility] [address] [place], [address] MCHC (RBC) [Mass/Vol] 35.2 g/dL Normal 32-36 [facility] Comment on above: Performed By: #### L 500.4050, L100.4500, L300.3900, L100.0500 ####[facility] [address] [place], [address] MCV (RBC) [Entitic vol] 85.2 fL Normal 80-94 [facility] Comment on above: Performed By: #### L 500.4050, L100.4500, L300.3900, L100.0500 ####[facility] [address] [place], [address] Platelet mean volume (Bld) [Entitic vol] 11.7 fL Normal 6.2-12.0 [facility] Comment on above: Performed By: #### L 500.4050, L100.4500, L300.3900, L100.0500 ####[facility] [address] [place], [address] Platelets (Bld) [#/Vol] 90 10*3/uL Low 150-450 [facility] Comment on above: Performed By: #### L 500.4050, L100.4500, L300.3900, L100.0500 ####[facility] [address] [place], [address] RBC (Bld) [#/Vol] 2.57 10*6/uL Low 4.6-6.2 [facility] Comment on above: Performed By: #### L 500.4050, L100.4500, L300.3900, L100.0500 ####[facility] [address] [place], [address] RDW SD 51.1 fl High 35.1-43.9 [facility] Comment on above: Performed By: #### L 500.4050, L100.4500, L300.3900, L100.0500 ####[facility] [address] [place], [address] WBC (Bld) [#/Vol] 8.5 10*3/uL Normal 4.4-11.0 [facility] Comment on above: Performed By: #### L 500.4050, L100.4500, L300.3900, L100.0500 ####[facility] [address] [place], [address] Carbon dioxide, total [Moles /volume] in Central venous bloodOrdered By: Jae Ash on 02-17-2025 CO2 [Moles/Vol] 22.1 mmol/L 21.0-32.0 [facility] Chloride assayOrdered By: Sky Ash on 02-17-2025 Chloride [Moles/Vol] 100 mmol/L 98-108 [facility] Comprehensive Metabolic Prof ilon 02-17-2025 Albumin [Mass/Vol] 2.1 g/dL Low 3.5-5.0 [facility] Comment on above: Performed By: #### L 500.4050, L100.4500, L300.3900, L100.0500 ####[facility] [address] [place], [address] Albumin/Globulin [Mass ratio] 0.7 {ratio} Low 0.9-2.4 [facility] Comment on above: Performed By: #### L 500.4050, L100.4500, L300.3900, L100.0500 ####[facility] [address] [place], [address] ALK PHOS 278 U/L High 40-129 [facility] Comment on above: Performed By: #### L 500.4050, L100.4500, L300.3900, L100.0500 ####[facility] [address] [place], [address] ALT [Catalytic activity/Vol] 46 U/L Normal <=46 [facility] Comment on above: Performed By: #### L 500.4050, L100.4500, L300.3900, L100.0500 ####[facility] [address] [place], [address] AST [Catalytic activity/Vol] 99 U/L High <=37 [facility] Comment on above: Result Comment: Hemo lysis present, Results??could be affected.?? Performed By: #### L 500.4050, L100.4500, L300.3900, L100.0500 ####[facility] [address] [place], [address] Bilirubin [Mass/Vol] 6.79 mg/dL High 0.00-1.30 [facility] Comment on above: Performed By: #### L 500.4050, L100.4500, L300.3900, L100.0500 ####[facility] [address] [place], [address] BUN/CRE 9.7 RATIO Low 10-20 [facility] Comment on above: Performed By: #### L 500.4050, L100.4500, L300.3900, L100.0500 ####[facility] [address] [place], [address] Calcium [Mass/Vol] 7.3 mg/dL Low 7.6-11.0 [facility] Comment on above: Performed By: #### L 500.4050, L100.4500, L300.3900, L100.0500 ####[facility] [address] [place], [address] Chloride [Moles/Vol] 100 mmol/L Normal 98-108 [facility] Comment on above: Performed By: #### L 500.4050, L100.4500, L300.3900, L100.0500 ####[facility] [address] [place], [address] CO2 [Moles/Vol] 22.1 mmol/L Normal 21.0-32.0 [facility] Comment on above: Performed By: #### L 500.4050, L100.4500, L300.3900, L100.0500 ####[facility] [address] [place], [address] Creatinine [Mass/Vol] 1.16 mg/dL Normal 0.70-1.20 [facility] Comment on above: Result Comment: Icte daquan present, Results may be affected. Performed By: #### L 500.4050, L100.4500, L300.3900, L100.0500 ####[facility] [address] [place], [address] ECRCL 79.19 ml/min Normal 50-250 [facility] Comment on above: Performed By: #### L 500.4050, L100.4500, L300.3900, L100.0500 ####[facility] [address] [place], [address] GAP 10 Normal 5-15 [facility] Comment on above: Performed By: #### L 500.4050, L100.4500, L300.3900, L100.0500 ####[facility] [address] [place], [address] GFR/1.73 sq M.predicted among non-blacks MDRD (S/P/Bld) [Vol rate/Area] 73 mL/min/{1.73_m2} Normal >60 [facility] Comment on above: Result Comment: mL/m in/1.73m2 CKD-EPI Creatinine Equation (2020) Performed By: #### L 500.4050, L100.4500, L300.3900, L100.0500 ####[facility] [address] [place], [address] Globulin (S) [Mass/Vol] 3.2 g/dL Normal 2.2-4.2 [facility] Comment on above: Performed By: #### L 500.4050, L100.4500, L300.3900, L100.0500 ####[facility] [address] [place], [address] Glucose [Mass/Vol] 246 mg/dL High 70-99 [facility] Comment on above: Performed By: #### L 500.4050, L100.4500, L300.3900, L100.0500 ####[facility] [address] [place], [address] Potassium [Moles/Vol] 3.6 mmol/L Normal 3.3-5.1 [facility] Comment on above: Result Comment: Hemo lysis present, Results??could be affected.?? Performed By: #### L 500.4050, L100.4500, L300.3900, L100.0500 ####[facility] [address] [place], [address] Sodium [Moles/Vol] 132 mmol/L Low 133-145 [facility] Comment on above: Performed By: #### L 500.4050, L100.4500, L300.3900, L100.0500 ####[facility] [address] [place], [address] T PROT 5.3 g/dL Low 5.9-8.4 [facility] Comment on above: Performed By: #### L 500.4050, L100.4500, L300.3900, L100.0500 ####[facility] [address] [place], [address] Urea nitrogen [Mass/Vol] 11 mg/dL Normal 4-19 [facility] Comment on above: Performed By: #### L 500.4050, L100.4500, L300.3900, L100.0500 ####[facility] [address] [place], [address] Differential Commenton 02-17 SMEAR COMMENT SCANNED Normal [facility] Comment on above: Result Comment: MODE RATE THROMBOCYTOPENIA NOTED Performed By: #### L 500.4050, L100.4500, L300.3900, L100.0500 ####[facility] [address] [place], [address] Discharge Instructionon 02-01 Discharge Instruction Normal [facility] Erythrocyte distribution wid th ratioOrdered By: Jae Ash on 02-17-2025 Erythrocyte distribution width (RBC) [Ratio] 19.0 % High 11.6-14.6 [facility] Erythrocyte distribution wid th standard deviationOrdered By: Jae Ash on 02-17-2025 Erythrocyte distribution width (RBC) [Ratio] 51.1 fl High 35.1-43.9 [facility] Glomerular filtration rate ( GFR) estimation/1.73 sq m using serum, plasma, or whole bOrdered By: Jae Ash on 02-17-2025 GFR/1.73 sq M.predicted among non-blacks MDRD (S/P/Bld) [Vol rate/Area] 73 mL/min/{1.73_m2} >60 [facility] deOrdered By: Anurag Irene on 02-17-2025 Glucose [Mass/Vol] 194 mg/dL High 74-106 [facility] Hematocrit Auto (Bld) [Volum e fraction]Ordered By: Jae Ash on 02-17-2025 Hematocrit (Bld) [Volume fraction] 21.9 % Low 40-54 [facility] Hemoglobin measurementOrdere d By: Jae Ash on 02-17-2025 Hemoglobin (Bld) [Mass/Vol] 7.7 g/dL Low 13.0-16.5 [facility] MCV (mean corpuscular volume ) determinationOrdered By: Jae Ash on 02-17-2025 MCV (RBC) [Entitic vol] 85.2 fL 80-94 [facility] MR/CON.PCM.GIon 02-17-2025 MR/CON.PCM.GI Normal [facility] Mean corpuscular hemoglobin (MCH) determinationOrdered By: Jae Ash on 02-17-2025 MCH (RBC) [Entitic mass] 30.0 pg 27.0-32.0 [facility] No Panel InformationOrdered By: Jae Ash on 02-17-2025 99 U/L High <38 [facility] Platelet countOrdered By: Sky Ash on 02-17-2025 Platelets (Bld) [#/Vol] 90 10*3/uL Low 150-450 [facility] Potassium measurement (mass/ volume)Ordered By: Jae Ash on 02-17-2025 Potassium (Unsp spec) [Mass/Vol] 3.6 mmol/L 3.3-5.1 [facility] Prothrombin Time w/INRon INR Coag (PPP) [Relative time] 2.0 {INR} Normal [facility] Comment on above: Performed By: #### L 500.4050, L100.4500, L300.3900, L100.0500 ####[facility] [address] [place], [place], [id number] PT Coag (PPP) [Time] 22.8 s High 11.7-14.9 [facility] Comment on above: Performed By: #### L 500.4050, L100.4500, L300.3900, L100.0500 ####[facility] [address] [place], [place], [id number] Prothrombin timeOrdered By: Jae Ash on 02-17-2025 PT Coag (PPP) [Time] 22.8 s High 11.7-14.9 [facility] RBC Auto (Bld) [#/Vol]Ordere d By: Jae Ash on 02-17-2025 RBC (Bld) [#/Vol] 2.57 10*6/uL Low 4.6-6.2 [facility] Serum creatinine measurement (mass/volume)Ordered By: Jae Ash on 02-17-2025 Creatinine [Mass/Vol] 1.16 mg/dL 0.70-1.20 [facility] Serum globulin measurementOr dered By: Jae Ash on 02-17-2025 Globulin (S) [Mass/Vol] 3.2 g/dL 2.2-4.2 [facility] Serum glucose measurement (m ass/volume)Ordered By: Jae Ash on 02-17-2025 Glucose [Mass/Vol] 246 mg/dL High 70-99 [facility] Serum or plasma alanine thomas otransferase (ALT) measurementOrdered By: Jae Ash on 02-17-2025 ALT [Catalytic activity/Vol] 46 U/L <47 [facility] Serum or plasma albumin roosevelt urement (mass/volume)Ordered By: Jae Ash on 02-17-2025 Albumin [Mass/Vol] 2.1 g/dL Low 3.5-5.0 [facility] Serum or plasma albumin/glob ulin mass ratioOrdered By: Jae Ash on 02-17-2025 Albumin/Globulin [Mass ratio] 0.7 {ratio} Low 0.9-2.4 [facility] Serum or plasma alkaline kendrick sphatase measurementOrdered By: Jae Ash on 02-17-2025 ALP [Catalytic activity/Vol] 278 U/L High 40-129 [facility] Serum or plasma calcium roosevelt urement (mass/volume)Ordered By: Jae Ash on 02-17-2025 Calcium [Mass/Vol] 7.3 mg/dL Low 7.6-11.0 [facility] Serum or plasma urea nitroge n measurement (mass/volume)Ordered By: Jae Ash on 02-17-2025 Urea nitrogen [Mass/Vol] 11 mg/dL 4-19 [facility] Sodium levelOrdered By: Pasha Ash on 02-17-2025 Sodium [Moles/Vol] 132 mmol/L Low 133-145 [facility] Total proteinOrdered By: Diane Ash on 02-17-2025 Protein [Mass/Vol] 5.3 g/dL Low 5.9-8.4 [facility] White blood cell (WBC) count Ordered By: Jae Ash on 02-17-2025 WBC (Bld) [#/Vol] 8.5 10*3/uL 4.4-11.0 [facility] Absolute lymphocyte countOrd ered By: Jerald Sherwood on 02-16-2025 Lymphocytes Auto (Unsp spec) [#/Vol] 1.28 10*3/uL 0.83-4.51 [facility] Anion gap in Serum or Plasma Ordered By: Jerald Sherwood on 02-16-2025 Anion gap [Moles/Vol] 12 mmol/L 5-15 [facility] Automated lymphocyte count a s percentage of total leukocytesOrdered By: Jerald Sherwood on 02-16-2025 Lymphocytes/100 WBC Auto (Unsp spec) 15.1 % Low 19-41 [facility] BUN/creatinine ratioOrdered By: Jerald Sherwood on 02-16-2025 Urea nitrogen/Creatinine [Mass ratio] 9.4 mg/mg Low 10-20 [facility] Basophil percentageOrdered B y: Jerald Sherwood on 02-16-2025 Basophils/100 WBC (Bld) 0.5 % 0-1 [facility] Bedside Glucoseon 02-16-2025 FINGERSTICK GLU 216 mg/dL High 74-106 [facility] Comment on above: Result Comment: BRISA MOROCHO OF PATIENT CARE PER NURSING PROTOCOL Performed By: #### L 501.080 ####[facility] [address] [place], [address] Bilirubin directOrdered By: Jae Ash on 02-16-2025 Bilirubin.direct [Mass/Vol] 5.10 mg/dL High 0.00-0.30 [facility] Bilirubin, Directon 02-17-20 25 Bilirubin.direct [Mass/Vol] 5.10 mg/dL High 0.00-0.30 [facility] Comment on above: Performed By: #### L 504.2610, L501.4700 ####[facility] [address] [place], [address] Bilirubin, totalOrdered By: Jerald Sherwood on 02-16-2025 Bilirubin [Mass/Vol] 7.29 mg/dL High 0.00-1.30 [facility] CBC W/Diff, Automatedon 02-01 Absolute Lymph 1.28 X10 3/uL Normal 0.83-4.51 [facility] Comment on above: Performed By: #### L 100.0100, L500.4050, L3000.0375, L503.5510 ####[facility] [address] [place], [address] Absolute Neut 5.7 X10 3/uL Normal 2.0-7.7 [facility] Comment on above: Performed By: #### L 100.0100, L500.4050, L3000.0375, L503.5510 ####[facility] [address] [place], [address] Basophils/100 WBC (Bld) 0.5 % Normal 0-1 [facility] Comment on above: Performed By: #### L 100.0100, L500.4050, L3000.0375, L503.5510 ####[facility] [address] [place], [address] Eosinophils/100 WBC (Bld) 5.4 % High 0-5 [facility] Comment on above: Performed By: #### L 100.0100, L500.4050, L3000.0375, L503.5510 ####[facility] [address] [place], [address] Erythrocyte distribution width (RBC) [Ratio] 18.7 % High 11.6-14.6 [facility] Comment on above: Performed By: #### L 100.0100, L500.4050, L3000.0375, L503.5510 ####[facility] [address] [place], [address] Hematocrit (Bld) [Volume fraction] 24.8 % Low 40-54 [facility] Comment on above: Performed By: #### L 100.0100, L500.4050, L3000.0375, L503.5510 ####[facility] [address] [place], [address] Hemoglobin (Bld) [Mass/Vol] 8.2 g/dL Low 13.0-16.5 [facility] Comment on above: Performed By: #### L 100.0100, L500.4050, L3000.0375, L503.5510 ####[facility] [address] [place], [address] IG% 0.200 Normal 0.0-0.9 [facility] Comment on above: Result Comment: IG% - Immature Granulocytes (promyelocytes, myelocytes andmetamyelocytes) > 1% indicates that a LEFT SHIFT is Present. Performed By: #### L 100.0100, L500.4050, L3000.0375, L503.5510 ####[facility] [address] [place], [address] Lymphocytes/100 WBC (Bld) 15.1 % Low 19-41 [facility] Comment on above: Performed By: #### L 100.0100, L500.4050, L3000.0375, L503.5510 ####[facility] [address] [place], [address] MCH (RBC) [Entitic mass] 28.9 pg Normal 27.0-32.0 [facility] Comment on above: Performed By: #### L 100.0100, L500.4050, L3000.0375, L503.5510 ####[facility] [address] [place], [address] MCHC (RBC) [Mass/Vol] 33.1 g/dL Normal 32-36 [facility] Comment on above: Performed By: #### L 100.0100, L500.4050, L3000.0375, L503.5510 ####[facility] [address] [place], [address] MCV (RBC) [Entitic vol] 87.3 fL Normal 80-94 [facility] Comment on above: Performed By: #### L 100.0100, L500.4050, L3000.0375, L503.5510 ####[facility] [address] [place], [address] Monocytes/100 WBC (Bld) 11.7 % High 0-10 [facility] Comment on above: Performed By: #### L 100.0100, L500.4050, L3000.0375, L503.5510 ####[facility] [address] [place], [address] Neutrophils/100 WBC (Bld) 67.1 % Normal 47-70 [facility] Comment on above: Performed By: #### L 100.0100, L500.4050, L3000.0375, L503.5510 ####[facility] [address] [place], [address] Nucleated RBC (Bld) [#/Vol] 0 10*3/uL Normal 0-5 [facility] Comment on above: Performed By: #### L 100.0100, L500.4050, L3000.0375, L503.5510 ####[facility] [address] [place], [address] Platelet mean volume (Bld) [Entitic vol] 12.0 fL Normal 6.2-12.0 [facility] Comment on above: Performed By: #### L 100.0100, L500.4050, L3000.0375, L503.5510 ####[facility] [address] [place], [address] Platelets (Bld) [#/Vol] 106 10*3/uL Low 150-450 [facility] Comment on above: Performed By: #### L 100.0100, L500.4050, L3000.0375, L503.5510 ####[facility] [address] [place], [address] RBC (Bld) [#/Vol] 2.84 10*6/uL Low 4.6-6.2 [facility] Comment on above: Performed By: #### L 100.0100, L500.4050, L3000.0375, L503.5510 ####[facility] [address] [place], [address] RDW SD 53.5 fl High 35.1-43.9 [facility] Comment on above: Performed By: #### L 100.0100, L500.4050, L3000.0375, L503.5510 ####[facility] [address] [place], [address] WBC (Bld) [#/Vol] 8.5 10*3/uL Normal 4.4-11.0 [facility] Comment on above: Performed By: #### L 100.0100, L500.4050, L3000.0375, L503.5510 ####[facility] [address] [place], [address] Carbon dioxide, total [Moles /volume] in Central venous bloodOrdered By: Jerald Sherwood on 02-16-2025 CO2 [Moles/Vol] 24.1 mmol/L 21.0-32.0 [facility] Chloride assayOrdered By: Paulette Sherwood on 02-16-2025 Chloride [Moles/Vol] 99 mmol/L 98-108 [facility] Comprehensive Metabolic Prof ilon 02-16-2025 Albumin [Mass/Vol] 2.3 g/dL Low 3.5-5.0 [facility] Comment on above: Performed By: #### L 100.0100, L500.4050, L3000.0375, L503.5510 ####[facility] [address] [place], [address] Albumin/Globulin [Mass ratio] 0.7 {ratio} Low 0.9-2.4 [facility] Comment on above: Performed By: #### L 100.0100, L500.4050, L3000.0375, L503.5510 ####[facility] [address] [place], [address] ALK PHOS 310 U/L High 40-129 [facility] Comment on above: Performed By: #### L 100.0100, L500.4050, L3000.0375, L503.5510 ####[facility] [address] [place], [address] ALT [Catalytic activity/Vol] 51 U/L High <=46 [facility] Comment on above: Performed By: #### L 100.0100, L500.4050, L3000.0375, L503.5510 ####[facility] [address] [place], [address] AST [Catalytic activity/Vol] 109 U/L High <=37 [facility] Comment on above: Performed By: #### L 100.0100, L500.4050, L3000.0375, L503.5510 ####[facility] [address] [place], [address] Bilirubin [Mass/Vol] 7.29 mg/dL High 0.00-1.30 [facility] Comment on above: Performed By: #### L 100.0100, L500.4050, L3000.0375, L503.5510 ####[facility] [address] [place], [address] BUN/CRE 9.4 RATIO Low 10-20 [facility] Comment on above: Performed By: #### L 100.0100, L500.4050, L3000.0375, L503.5510 ####[facility] [address] [place], [address] Calcium [Mass/Vol] 7.8 mg/dL Normal 7.6-11.0 [facility] Comment on above: Performed By: #### L 100.0100, L500.4050, L3000.0375, L503.5510 ####[facility] [address] [place], [address] Chloride [Moles/Vol] 99 mmol/L Normal 98-108 [facility] Comment on above: Performed By: #### L 100.0100, L500.4050, L3000.0375, L503.5510 ####[facility] [address] [place], [address] CO2 [Moles/Vol] 24.1 mmol/L Normal 21.0-32.0 [facility] Comment on above: Performed By: #### L 100.0100, L500.4050, L3000.0375, L503.5510 ####[facility] [address] [place], [address] Creatinine [Mass/Vol] 1.30 mg/dL High 0.70-1.20 [facility] Comment on above: Result Comment: Icte daquan present, Results may be affected. Performed By: #### L 100.0100, L500.4050, L3000.0375, L503.5510 ####[facility] [address] [place], [address] GAP 12 Normal 5-15 [facility] Comment on above: Performed By: #### L 100.0100, L500.4050, L3000.0375, L503.5510 ####[facility] [address] [place], [address] GFR/1.73 sq M.predicted among non-blacks MDRD (S/P/Bld) [Vol rate/Area] 64 mL/min/{1.73_m2} Normal >60 [facility] Comment on above: Result Comment: mL/m in/1.73m2 CKD-EPI Creatinine Equation (2020) Performed By: #### L 100.0100, L500.4050, L3000.0375, L503.5510 ####[facility] [address] [place], [address] Globulin (S) [Mass/Vol] 3.5 g/dL Normal 2.2-4.2 [facility] Comment on above: Performed By: #### L 100.0100, L500.4050, L3000.0375, L503.5510 ####[facility] [address] [place], [address] Glucose [Mass/Vol] 250 mg/dL High 70-99 [facility] Comment on above: Performed By: #### L 100.0100, L500.4050, L3000.0375, L503.5510 ####[facility] [address] [place], [address] Potassium [Moles/Vol] 3.1 mmol/L Low 3.3-5.1 [facility] Comment on above: Performed By: #### L 100.0100, L500.4050, L3000.0375, L503.5510 ####[facility] [address] [place], [address] Sodium [Moles/Vol] 135 mmol/L Normal 133-145 [facility] Comment on above: Performed By: #### L 100.0100, L500.4050, L3000.0375, L503.5510 ####[facility] [address] [place], [address] T PROT 5.8 g/dL Low 5.9-8.4 [facility] Comment on above: Performed By: #### L 100.0100, L500.4050, L3000.0375, L503.5510 ####[facility] [address] [place], [address] Urea nitrogen [Mass/Vol] 12 mg/dL Normal 4-19 [facility] Comment on above: Performed By: #### L 100.0100, L500.4050, L3000.0375, L503.5510 ####[facility] [address] [place], [address] Emergency Department Summary on 02-16-2025 Emergency Department Summary Normal [facility] Eosinophil percentageOrdered By: Jerald Sherwood on 02-16-2025 Eosinophils/100 WBC (Bld) 5.4 % High 0-5 [facility] Erythrocyte distribution wid th ratioOrdered By: Jerald Sherwood on 02-16-2025 Erythrocyte distribution width (RBC) [Ratio] 18.7 % High 11.6-14.6 [facility] Erythrocyte distribution wid th standard deviationOrdered By: Jerald Sherwood on 02-16-2025 Erythrocyte distribution width (RBC) [Ratio] 53.5 fl High 35.1-43.9 [facility] Glomerular filtration rate ( GFR) estimation/1.73 sq m using serum, plasma, or whole bOrdered By: Jerald Sherwood on 02-16-2025 GFR/1.73 sq M.predicted among non-blacks MDRD (S/P/Bld) [Vol rate/Area] 64 mL/min/{1.73_m2} >60 [facility] H AND P Exam - Hospitaliston 02-16-2025 H&P Exam - Hospitalist Normal [facility] Hematocrit Auto (Bld) [Volum e fraction]Ordered By: Jerald Sherwood on 02-16-2025 Hematocrit (Bld) [Volume fraction] 24.8 % Low 40-54 [facility] Hemoglobin measurementOrdere d By: Jerald Sherwood on 02-16-2025 Hemoglobin (Bld) [Mass/Vol] 8.2 g/dL Low 13.0-16.5 [facility] Immature granulocytes/100 WB C Auto (Bld)Ordered By: Jerald Sherwood on 02-16-2025 Immature granulocytes/100 WBC (Bld) 0.200 % 0.0-0.9 [facility] LDHon 02-16-2025 LDH 273 U/L High 87-241 [facility] Comment on above: Performed By: #### L 504.2610, L501.4700 ####[facility] [address] [facility] [place], [place], [id number] MCV (mean corpuscular volume ) determinationOrdered By: Jerald Sherwood on 02-16-2025 MCV (RBC) [Entitic vol] 87.3 fL 80-94 [facility] Magnesiumon 02-16-2025 Magnesium [Mass/Vol] 1.3 mg/dL Low 1.5-2.2 [facility] Comment on above: Performed By: #### L 501.2300, L501.5200 ####[facility] [address] [facility] [place], [place], [address] Magnesium measurement (mass/ volume)Ordered By: Jae Ash on 02-16-2025 Magnesium (Unsp spec) [Mass/Vol] 1.3 mg/dL Low 1.5-2.2 [facility] Mean corpuscular hemoglobin (MCH) determinationOrdered By: Jerald Sherwood on 02-16-2025 MCH (RBC) [Entitic mass] 28.9 pg 27.0-32.0 [facility] Monocyte percentageOrdered B y: Jerald Sherwood on 02-16-2025 Monocytes/100 WBC (Bld) 11.7 % High 0-10 [facility] Neutrophil percentageOrdered By: Jerald Sherwood on 02-16-2025 Neutrophils/100 WBC (Bld) 67.1 % 47-70 [facility] No Panel InformationOrdered By: Jerald Sherwood on 02-16-2025 109 U/L High <38 [facility] Comment . [facility] Phosphoruson 02-16-2025 Phosphate [Mass/Vol] 2.3 mg/dL Low 2.7-4.5 [facility] Comment on above: Performed By: #### L 501.2300, L501.5200 ####[facility] [address] [place], [address] Platelet countOrdered By: Paulette Sherwood on 02-16-2025 Platelets (Bld) [#/Vol] 106 10*3/uL Low 150-450 [facility] Potassium measurement (mass/ volume)Ordered By: Jerald Sherwood on 02-16-2025 Potassium (Unsp spec) [Mass/Vol] 3.1 mmol/L Low 3.3-5.1 [facility] Prothrombin Time w/INRon INR Coag (PPP) [Relative time] 1.8 {INR} Normal [facility] Comment on above: Performed By: #### L 300.3900 ####[facility] [address] [place], [place], [address] PT Coag (PPP) [Time] 21.1 s High 11.7-14.9 [facility] Comment on above: Performed By: #### L 300.3900 ####[facility] [address] [place], [address] RBC Auto (Bld) [#/Vol]Ordere d By: Jerald Sherwood on 02-16-2025 RBC (Bld) [#/Vol] 2.84 10*6/uL Low 4.6-6.2 [facility] Serum creatinine measurement (mass/volume)Ordered By: Jerald Sherwood on 02-16-2025 Creatinine [Mass/Vol] 1.30 mg/dL High 0.70-1.20 [facility] Serum globulin measurementOr dered By: Jerald Sherwood on 02-16-2025 Globulin (S) [Mass/Vol] 3.5 g/dL 2.2-4.2 [facility] Serum glucose measurement (m ass/volume)Ordered By: Jerald Sherwood on 02-16-2025 Glucose [Mass/Vol] 250 mg/dL High 70-99 [facility] Serum or plasma alanine thomas otransferase (ALT) measurementOrdered By: Jerald Sherwood on 02-16-2025 ALT [Catalytic activity/Vol] 51 U/L High <47 [facility] Serum or plasma albumin roosevelt urement (mass/volume)Ordered By: Jerald Sherwood on 02-16-2025 Albumin [Mass/Vol] 2.3 g/dL Low 3.5-5.0 [facility] Serum or plasma albumin/glob ulin mass ratioOrdered By: Jerald Sherwood on 02-16-2025 Albumin/Globulin [Mass ratio] 0.7 {ratio} Low 0.9-2.4 [facility] Serum or plasma alkaline kendrick sphatase measurementOrdered By: Jerald Sherwood on 02-16-2025 ALP [Catalytic activity/Vol] 310 U/L High 40-129 [facility] Serum or plasma calcium roosevelt urement (mass/volume)Ordered By: Jerald Sherwood on 02-16-2025 Calcium [Mass/Vol] 7.8 mg/dL 7.6-11.0 [facility] Serum or plasma hepatitis B virus surface antigen detection by immunoassayOrdered By: Jerald Sherwood on 02-16-2025 HBV surface Ag IA Ql Negative Negative [facility] Serum or plasma urea nitroge n measurement (mass/volume)Ordered By: Jerald Sherwood on 02-16-2025 Urea nitrogen [Mass/Vol] 12 mg/dL 4-19 [facility] Sodium levelOrdered By: Jerald Sherwood on 02-16-2025 Sodium [Moles/Vol] 135 mmol/L 133-145 [facility] Total proteinOrdered By: Candie Sherwood on 02-16-2025 Protein [Mass/Vol] 5.8 g/dL Low 5.9-8.4 [facility] Venous blood ammonia measure mentOrdered By: Jerald Sherwood on 02-16-2025 Ammonia (P) [Moles/Vol] 88.0 umol/L High 16-60 [facility] Comment on above: Performed By: #### L 100.0100, L500.4050, L3000.0375, L503.5510 ####[facility] [address] [place], [address] White blood cell (WBC) count Ordered By: Jerald Sherwood on 02-16-2025 WBC (Bld) [#/Vol] 8.5 10*3/uL 4.4-11.0 [facility] Abdomen/Pelvis W IV Cont ONL Yon 02-13-2025 Abdomen/Pelvis W IV Cont ONLY Normal [facility] Absolute lymphocyte countOrd ered By: Luis Carlos Anderson on 02-13-2025 Lymphocytes Auto (Unsp spec) [#/Vol] 1.20 10*3/uL 0.83-4.51 [facility] Anion gap in Serum or Plasma Ordered By: Luis Carlos Anderson on 02-13-2025 Anion gap [Moles/Vol] 14 mmol/L 5-15 [facility] Automated lymphocyte count a s percentage of total leukocytesOrdered By: Luis Carlos Anderson on 02-13-2025 Lymphocytes/100 WBC Auto (Unsp spec) 13.9 % Low 19-41 [facility] BUN/creatinine ratioOrdered By: Luis Carlos Anderson on 02-13-2025 Urea nitrogen/Creatinine [Mass ratio] 14.3 mg/mg 10-20 [facility] Basophil percentageOrdered B y: Luis Carlos Anderson on 02-13-2025 Basophils/100 WBC (Bld) 0.3 % 0-1 [facility] Bilirubin, totalOrdered By: Luis Carlos Anderson on 02-13-2025 Bilirubin [Mass/Vol] 6.20 mg/dL High 0.00-1.30 [facility] Blood manual differential co mment interpretation (narrative result)Ordered By: Luis Carlos Anderson on 02-13-2025 Manual differential comment Marco Antonio (Bld) [Interp] SCANNED [facility] CBC W/Diff, Automatedon 02-01 PLT EST MOD DEC Normal ADEQ [facility] Comment on above: Performed By: #### L 100.0100, L500.4050, L501.2450 ####[facility] [address] [place], [address] Platelet mean volume (Bld) [Entitic vol] 10.8 fL Normal 6.2-12.0 [facility] Comment on above: Performed By: #### L 100.0100, L500.4050, L501.2450 ####[facility] [address] [place], [address] Platelets (Bld) [#/Vol] 83 10*3/uL Low 150-450 [facility] Comment on above: Result Comment: NO C LUMPING SEEN Performed By: #### L 100.0100, L500.4050, L501.2450 ####[facility] [address] [place], [address] SMEAR COMMENT SCANNED Normal [facility] Comment on above: Performed By: #### L 100.0100, L500.4050, L501.2450 ####[facility] [address] [place], [address] Carbon dioxide, total [Moles /volume] in Central venous bloodOrdered By: Luis Carlos Anderson on 02-13-2025 CO2 [Moles/Vol] 18.4 mmol/L Low 21.0-32.0 [facility] Chloride assayOrdered By: Yaya Anderson on 02-13-2025 Chloride [Moles/Vol] 102 mmol/L 98-108 [facility] Comprehensive Metabolic Prof ilon 02-13-2025 Albumin [Mass/Vol] 2.2 g/dL Low 3.5-5.0 [facility] Comment on above: Performed By: #### L 100.0100, L500.4050, L501.2450 ####[facility] [address] [place], [address] Albumin/Globulin [Mass ratio] 0.6 {ratio} Low 0.9-2.4 [facility] Comment on above: Performed By: #### L 100.0100, L500.4050, L501.2450 ####[facility] [address] [place], [address] ALK PHOS 335 U/L High 40-129 [facility] Comment on above: Performed By: #### L 100.0100, L500.4050, L501.2450 ####[facility] [address] [place], [address] ALT [Catalytic activity/Vol] 53 U/L High <=46 [facility] Comment on above: Performed By: #### L 100.0100, L500.4050, L501.2450 ####[facility] [address] [place], [address] AST [Catalytic activity/Vol] 120 U/L High <=37 [facility] Comment on above: Performed By: #### L 100.0100, L500.4050, L501.2450 ####[facility] [address] [place], [address] Bilirubin [Mass/Vol] 6.20 mg/dL High 0.00-1.30 [facility] Comment on above: Performed By: #### L 100.0100, L500.4050, L501.2450 ####[facility] [address] [place], [address] BUN/CRE 14.3 RATIO Normal 10-20 [facility] Comment on above: Performed By: #### L 100.0100, L500.4050, L501.2450 ####[facility] [address] [place], [address] Calcium [Mass/Vol] 8.3 mg/dL Normal 7.6-11.0 [facility] Comment on above: Performed By: #### L 100.0100, L500.4050, L501.2450 ####[facility] [address] [place], [address] Chloride [Moles/Vol] 102 mmol/L Normal 98-108 [facility] Comment on above: Performed By: #### L 100.0100, L500.4050, L501.2450 ####[facility] [address] [place], [address] CO2 [Moles/Vol] 18.4 mmol/L Low 21.0-32.0 [facility] Comment on above: Performed By: #### L 100.0100, L500.4050, L501.2450 ####[facility] [address] [place], [address] Creatinine [Mass/Vol] 1.78 mg/dL High 0.70-1.20 [facility] Comment on above: Result Comment: Icte daquan present, Results may be affected. Performed By: #### L 100.0100, L500.4050, L501.2450 ####[facility] [address] [place], [address] ECRCL 53.12 ml/min Normal 50-250 [facility] Comment on above: Performed By: #### L 100.0100, L500.4050, L501.2450 ####[facility] [address] [place], [address] GAP 14 Normal 5-15 [facility] Comment on above: Performed By: #### L 100.0100, L500.4050, L501.2450 ####[facility] [address] [place], [address] GFR/1.73 sq M.predicted among non-blacks MDRD (S/P/Bld) [Vol rate/Area] 44 mL/min/{1.73_m2} Low >60 [facility] Comment on above: Result Comment: mL/m in/1.73m2 CKD-EPI Creatinine Equation (2020) Performed By: #### L 100.0100, L500.4050, L501.2450 ####[facility] [address] [place], [address] Globulin (S) [Mass/Vol] 3.7 g/dL Normal 2.2-4.2 [facility] Comment on above: Performed By: #### L 100.0100, L500.4050, L501.2450 ####[facility] [address] [place], [address] Glucose [Mass/Vol] 169 mg/dL High 70-99 [facility] Comment on above: Performed By: #### L 100.0100, L500.4050, L501.2450 ####[facility] [address] [place], [address] Potassium [Moles/Vol] 3.4 mmol/L Normal 3.3-5.1 [facility] Comment on above: Result Comment: Hemo lysis present, Results??could be affected.?? Performed By: #### L 100.0100, L500.4050, L501.2450 ####[facility] [address] [place], [address] Sodium [Moles/Vol] 135 mmol/L Normal 133-145 [facility] Comment on above: Performed By: #### L 100.0100, L500.4050, L501.2450 ####[facility] [address] [place], [address] T PROT 5.8 g/dL Low 5.9-8.4 [facility] Comment on above: Performed By: #### L 100.0100, L500.4050, L501.2450 ####[facility] [address], [address] Urea nitrogen [Mass/Vol] 25 mg/dL High 4-19 [facility] Comment on above: Performed By: #### L 100.0100, L500.4050, L501.2450 ####[facility] [address] [place], [place], [address] Emergency Department Summary on 02-13-2025 Emergency Department Summary Normal [facility] Eosinophil percentageOrdered By: Luis Carlos Anderson on 02-13-2025 Eosinophils/100 WBC (Bld) 5.1 % High 0-5 [facility] Erythrocyte distribution wid th ratioOrdered By: Luis Carlos Anderson on 02-13-2025 Erythrocyte distribution width (RBC) [Ratio] 17.4 % High 11.6-14.6 [facility] Erythrocyte distribution wid th standard deviationOrdered By: Luis Carlos Anderson on 02-13-2025 Erythrocyte distribution width (RBC) [Ratio] 52.3 fl High 35.1-43.9 [facility] Glomerular filtration rate ( GFR) estimation/1.73 sq m using serum, plasma, or whole bOrdered By: Luis Carlos Anderson on 02-13-2025 GFR/1.73 sq M.predicted among non-blacks MDRD (S/P/Bld) [Vol rate/Area] 44 mL/min/{1.73_m2} Low >60 [facility] Hematocrit Auto (Bld) [Volum e fraction]Ordered By: Luis Carlos Anderson on 02-13-2025 Hematocrit (Bld) [Volume fraction] 24.1 % Low 40-54 [facility] Hemoglobin measurementOrdere d By: Luis Carlos Anderson on 02-13-2025 Hemoglobin (Bld) [Mass/Vol] 8.3 g/dL Low 13.0-16.5 [facility] Immature granulocytes/100 WB C Auto (Bld)Ordered By: Luis Carlos Anderson on 02-13-2025 Immature granulocytes/100 WBC (Bld) 0.500 % 0.0-0.9 [facility] Lipaseon 02-13-2025 Lipase [Catalytic activity/Vol] 60 U/L Normal 13-75 [facility] Comment on above: Result Comment: Siddhartha bhat note:LIPASE revised reference range effective 22.New Lipase methodology. Expected to produce lower valuesthan the previous assay method.NEW Reference Range: 13 - 75 U/L Performed By: #### L 100.0100, L500.4050, L501.2450 ####[facility] [address] [place], [address] MCV (mean corpuscular volume ) determinationOrdered By: Luis Carlos Anderson on 02-13-2025 MCV (RBC) [Entitic vol] 84.9 fL 80-94 [facility] Mean corpuscular hemoglobin (MCH) determinationOrdered By: Luis Carlos Anderson on 02-13-2025 MCH (RBC) [Entitic mass] 29.2 pg 27.0-32.0 [facility] Monocyte percentageOrdered B y: Luis Carlos Anderson on 02-13-2025 Monocytes/100 WBC (Bld) 16.1 % High 0-10 [facility] Neutrophil percentageOrdered By: Luis Carlos Anderson on 02-13-2025 Neutrophils/100 WBC (Bld) 64.1 % 47-70 [facility] No Panel InformationOrdered By: Luis Carlos Anderson on 02-13-2025 120 U/L High <38 [facility] Platelet countOrdered By: felipe Anderson on 02-13-2025 Platelets (Bld) [#/Vol] 83 10*3/uL Low 150-450 [facility] Platelet estimateOrdered By: Luis Carlos Anderson on 02-13-2025 Platelets LM Ql (Bld) MOD DEC ADEQ [facility] Potassium measurement (mass/ volume)Ordered By: Luis Cralos Anderson on 02-13-2025 Potassium (Unsp spec) [Mass/Vol] 3.4 mmol/L 3.3-5.1 [facility] RBC Auto (Bld) [#/Vol]Ordere d By: Luis Carlos Anderson on 02-13-2025 RBC (Bld) [#/Vol] 2.84 10*6/uL Low 4.6-6.2 [facility] Serum creatinine measurement (mass/volume)Ordered By: Luis Carlos Anderson on 02-13-2025 Creatinine [Mass/Vol] 1.78 mg/dL High 0.70-1.20 [facility] Serum globulin measurementOr dered By: Luis Carlos Anderson on 02-13-2025 Globulin (S) [Mass/Vol] 3.7 g/dL 2.2-4.2 [facility] Serum glucose measurement (m ass/volume)Ordered By: Luis Carlos Anderson on 02-13-2025 Glucose [Mass/Vol] 169 mg/dL High 70-99 [facility] Serum or plasma alanine thomas otransferase (ALT) measurementOrdered By: Luis Carlos Anderson on 02-13-2025 ALT [Catalytic activity/Vol] 53 U/L High <47 [facility] Serum or plasma albumin roosevelt urement (mass/volume)Ordered By: Luis Carlos Anderson on 02-13-2025 Albumin [Mass/Vol] 2.2 g/dL Low 3.5-5.0 [facility] Serum or plasma albumin/glob ulin mass ratioOrdered By: Luis Carlos Anderson on 02-13-2025 Albumin/Globulin [Mass ratio] 0.6 {ratio} Low 0.9-2.4 [facility] Serum or plasma alkaline kendrick sphatase measurementOrdered By: Luis Carlos Anderson on 02-13-2025 ALP [Catalytic activity/Vol] 335 U/L High 40-129 [facility] Serum or plasma calcium roosevelt urement (mass/volume)Ordered By: Luis Carlos Anderson on 02-13-2025 Calcium [Mass/Vol] 8.3 mg/dL 7.6-11.0 [facility] Serum or plasma urea nitroge n measurement (mass/volume)Ordered By: Luis Carlos Anderson on 02-13-2025 Urea nitrogen [Mass/Vol] 25 mg/dL High 4-19 [facility] Sodium levelOrdered By: Yunior Anderson on 02-13-2025 Sodium [Moles/Vol] 135 mmol/L 133-145 [facility] Total proteinOrdered By: Joann Noes on 02-13-2025 Protein [Mass/Vol] 5.8 g/dL Low 5.9-8.4 [facility] White blood cell (WBC) count Ordered By: Luis Carlos Justin on 02-13-2025 WBC (Bld) [#/Vol] 8.6 10*3/uL 4.4-11.0 [facility] Operative Reporton Operative Report Normal [facility] Paracentesis with USon 02-11 Paracentesis with US Normal [facility] Emergency Department Summary on 02-08-2025 Emergency Department Summary Normal [facility] Abdomen/Pelvis W IV Cont ONL Yon 02-07-2025 Abdomen/Pelvis W IV Cont ONLY Normal [facility] Absolute lymphocyte countOrd ered By: ED PROVIDER on 02-07-2025 Lymphocytes Auto (Unsp spec) [#/Vol] 1.39 10*3/uL 0.83-4.51 [facility] Anion gap in Serum or Plasma Ordered By: ED PROVIDER on 02-07-2025 Anion gap [Moles/Vol] 9 mmol/L 5-15 [facility] Automated lymphocyte count a s percentage of total leukocytesOrdered By: ED PROVIDER on 02-07-2025 Lymphocytes/100 WBC Auto (Unsp spec) 12.8 % Low 19-41 [facility] BUN/creatinine ratioOrdered By: ED PROVIDER on 02-07-2025 Urea nitrogen/Creatinine [Mass ratio] 13.9 mg/mg 10-20 [facility] Basophil percentageOrdered B y: ED PROVIDER on 02-07-2025 Basophils/100 WBC (Bld) 0.5 % 0-1 [facility] Bilirubin, totalOrdered By: ED PROVIDER on 02-07-2025 Bilirubin [Mass/Vol] 1.92 mg/dL High 0.00-1.30 [facility] CBC W/Diff, Automatedon Absolute Lymph 1.39 X10 3/uL Normal 0.83-4.51 [facility] Comment on above: Performed By: #### L 501.2450, L500.4050, L100.0100 ####[facility] [address] [place], [address] Absolute Neut 7.9 X10 3/uL High 2.0-7.7 [facility] Comment on above: Performed By: #### L 501.2450, L500.4050, L100.0100 ####[facility] [address] [place], [address] Basophils/100 WBC (Bld) 0.5 % Normal 0-1 [facility] Comment on above: Performed By: #### L 501.2450, L500.4050, L100.0100 ####[facility] [address] [place], [address] Eosinophils/100 WBC (Bld) 5.4 % High 0-5 [facility] Comment on above: Performed By: #### L 501.2450, L500.4050, L100.0100 ####[facility] [address] [place], [address] Erythrocyte distribution width (RBC) [Ratio] 17.9 % High 11.6-14.6 [facility] Comment on above: Performed By: #### L 501.2450, L500.4050, L100.0100 ####[facility] [address] [place], [address] Hematocrit (Bld) [Volume fraction] 28.8 % Low 40-54 [facility] Comment on above: Performed By: #### L 501.2450, L500.4050, L100.0100 ####[facility] [address] [place], [address] Hemoglobin (Bld) [Mass/Vol] 9.2 g/dL Low 13.0-16.5 [facility] Comment on above: Performed By: #### L 501.2450, L500.4050, L100.0100 ####[facility] [address] [place], [address] IG% 0.400 Normal 0.0-0.9 [facility] Comment on above: Result Comment: IG% - Immature Granulocytes (promyelocytes, myelocytes andmetamyelocytes) > 1% indicates that a LEFT SHIFT is Present. Performed By: #### L 501.2450, L500.4050, L100.0100 ####[facility] [address] [place], [address] Lymphocytes/100 WBC (Bld) 12.8 % Low 19-41 [facility] Comment on above: Performed By: #### L 501.2450, L500.4050, L100.0100 ####[facility] [address] [place], [address] MCH (RBC) [Entitic mass] 29.0 pg Normal 27.0-32.0 [facility] Comment on above: Performed By: #### L 501.2450, L500.4050, L100.0100 ####[facility] [address] [place], [address] MCHC (RBC) [Mass/Vol] 31.9 g/dL Low 32-36 [facility] Comment on above: Performed By: #### L 501.2450, L500.4050, L100.0100 ####[facility] [address] [place], [address] MCV (RBC) [Entitic vol] 90.9 fL Normal 80-94 [facility] Comment on above: Performed By: #### L 501.2450, L500.4050, L100.0100 ####[facility] [address] [place], [address] Monocytes/100 WBC (Bld) 8.1 % Normal 0-10 [facility] Comment on above: Performed By: #### L 501.2450, L500.4050, L100.0100 ####[facility] [address] [place], [address] Neutrophils/100 WBC (Bld) 72.8 % High 47-70 [facility] Comment on above: Performed By: #### L 501.2450, L500.4050, L100.0100 ####[facility] [address] [place], [address] Nucleated RBC (Bld) [#/Vol] 0 10*3/uL Normal 0-5 [facility] Comment on above: Performed By: #### L 501.2450, L500.4050, L100.0100 ####[facility] [address] [place], [address] Platelet mean volume (Bld) [Entitic vol] 10.1 fL Normal 6.2-12.0 [facility] Comment on above: Performed By: #### L 501.2450, L500.4050, L100.0100 ####[facility] [address] [place], [address] Platelets (Bld) [#/Vol] 131 10*3/uL Low 150-450 [facility] Comment on above: Performed By: #### L 501.2450, L500.4050, L100.0100 ####[facility] [address] [place], [address] RBC (Bld) [#/Vol] 3.17 10*6/uL Low 4.6-6.2 [facility] Comment on above: Performed By: #### L 501.2450, L500.4050, L100.0100 ####[facility] [address] [place], [address] RDW SD 58.3 fl High 35.1-43.9 [facility] Comment on above: Performed By: #### L 501.2450, L500.4050, L100.0100 ####[facility] [address] [place], [address] WBC (Bld) [#/Vol] 10.8 10*3/uL Normal 4.4-11.0 [facility] Comment on above: Performed By: #### L 501.2450, L500.4050, L100.0100 ####[facility] [address] [place], [address] Carbon dioxide, total [Moles /volume] in Central venous bloodOrdered By: ED PROVIDER on 02-07-2025 CO2 [Moles/Vol] 22.7 mmol/L 21.0-32.0 [facility] Chloride assayOrdered By: ED PROVIDER on 02-07-2025 Chloride [Moles/Vol] 106 mmol/L 98-108 [facility] Comprehensive Metabolic Prof ilon 02-07-2025 Albumin [Mass/Vol] 2.2 g/dL Low 3.5-5.0 [facility] Comment on above: Performed By: #### L 501.2450, L500.4050, L100.0100 ####[facility] [address] [place], [address] Albumin/Globulin [Mass ratio] 0.6 {ratio} Low 0.9-2.4 [facility] Comment on above: Performed By: #### L 501.2450, L500.4050, L100.0100 ####[facility] [address] [place], [address] ALK PHOS 218 U/L High 40-129 [facility] Comment on above: Performed By: #### L 501.2450, L500.4050, L100.0100 ####[facility] [address] [place], [address] ALT [Catalytic activity/Vol] 30 U/L Normal <=46 [facility] Comment on above: Performed By: #### L 501.2450, L500.4050, L100.0100 ####[facility] [address] [place], [address] AST [Catalytic activity/Vol] 55 U/L High <=37 [facility] Comment on above: Performed By: #### L 501.2450, L500.4050, L100.0100 ####[facility] [address] [place], [address] Bilirubin [Mass/Vol] 1.92 mg/dL High 0.00-1.30 [facility] Comment on above: Performed By: #### L 501.2450, L500.4050, L100.0100 ####[facility] [address] [place], [address] BUN/CRE 13.9 RATIO Normal 10-20 [facility] Comment on above: Performed By: #### L 501.2450, L500.4050, L100.0100 ####[facility] [address] [place], [address] Calcium [Mass/Vol] 8.4 mg/dL Normal 7.6-11.0 [facility] Comment on above: Performed By: #### L 501.2450, L500.4050, L100.0100 ####[facility] [address] [place], [address] Chloride [Moles/Vol] 106 mmol/L Normal 98-108 [facility] Comment on above: Performed By: #### L 501.2450, L500.4050, L100.0100 ####[facility] [address] [place], [address] CO2 [Moles/Vol] 22.7 mmol/L Normal 21.0-32.0 [facility] Comment on above: Performed By: #### L 501.2450, L500.4050, L100.0100 ####[facility] [address] [place], [address] Creatinine [Mass/Vol] 1.05 mg/dL Normal 0.70-1.20 [facility] Comment on above: Performed By: #### L 501.2450, L500.4050, L100.0100 ####[facility] [address] [place], [address] GAP 9 Normal 5-15 [facility] Comment on above: Performed By: #### L 501.2450, L500.4050, L100.0100 ####[facility] [address] [place], [address] GFR/1.73 sq M.predicted among non-blacks MDRD (S/P/Bld) [Vol rate/Area] 82 mL/min/{1.73_m2} Normal >60 [facility] Comment on above: Result Comment: mL/m in/1.73m2 CKD-EPI Creatinine Equation (2020) Performed By: #### L 501.2450, L500.4050, L100.0100 ####[facility] [address] [place], [address] Globulin (S) [Mass/Vol] 3.5 g/dL Normal 2.2-4.2 [facility] Comment on above: Performed By: #### L 501.2450, L500.4050, L100.0100 ####[facility] [address] [place], [address] Glucose [Mass/Vol] 142 mg/dL High 70-99 [facility] Comment on above: Performed By: #### L 501.2450, L500.4050, L100.0100 ####[facility] [address] [place], [address] Potassium [Moles/Vol] 3.7 mmol/L Normal 3.3-5.1 [facility] Comment on above: Performed By: #### L 501.2450, L500.4050, L100.0100 ####[facility] [address] [place], [address] Sodium [Moles/Vol] 137 mmol/L Normal 133-145 [facility] Comment on above: Performed By: #### L 501.2450, L500.4050, L100.0100 ####[facility] [address] [place], [address] T PROT 5.8 g/dL Low 5.9-8.4 [facility] Comment on above: Performed By: #### L 501.2450, L500.4050, L100.0100 ####[facility] [address] [place], [address] Urea nitrogen [Mass/Vol] 15 mg/dL Normal 4-19 [facility] Comment on above: Performed By: #### L 501.2450, L500.4050, L100.0100 ####[facility] [address] [place], [address] Eosinophil percentageOrdered By: ED PROVIDER on 02-07-2025 Eosinophils/100 WBC (Bld) 5.4 % High 0-5 [facility] Erythrocyte distribution wid th ratioOrdered By: ED PROVIDER on 02-07-2025 Erythrocyte distribution width (RBC) [Ratio] 17.9 % High 11.6-14.6 [facility] Erythrocyte distribution wid th standard deviationOrdered By: ED PROVIDER on 02-07-2025 Erythrocyte distribution width (RBC) [Ratio] 58.3 fl High 35.1-43.9 [facility] Glomerular filtration rate ( GFR) estimation/1.73 sq m using serum, plasma, or whole bOrdered By: ED PROVIDER on 02-07-2025 GFR/1.73 sq M.predicted among non-blacks MDRD (S/P/Bld) [Vol rate/Area] 82 mL/min/{1.73_m2} >60 [facility] Hematocrit Auto (Bld) [Volum e fraction]Ordered By: ED PROVIDER on 02-07-2025 Hematocrit (Bld) [Volume fraction] 28.8 % Low 40-54 [facility] Hemoglobin measurementOrdere d By: ED PROVIDER on 02-07-2025 Hemoglobin (Bld) [Mass/Vol] 9.2 g/dL Low 13.0-16.5 [facility] Immature granulocytes/100 WB C Auto (Bld)Ordered By: ED PROVIDER on 02-07-2025 Immature granulocytes/100 WBC (Bld) 0.400 % 0.0-0.9 [facility] Lipaseon 02-07-2025 Lipase [Catalytic activity/Vol] 35 U/L Normal 13-75 [facility] Comment on above: Result Comment: Siddhartha bhat note:LIPASE revised reference range effective 22.New Lipase methodology. Expected to produce lower valuesthan the previous assay method.NEW Reference Range: 13 - 75 U/L Performed By: #### L 501.2450, L500.4050, L100.0100 ####[facility] [address] [place], [address] MCV (mean corpuscular volume ) determinationOrdered By: ED PROVIDER on 02-07-2025 MCV (RBC) [Entitic vol] 90.9 fL 80-94 [facility] Mean corpuscular hemoglobin (MCH) determinationOrdered By: ED PROVIDER on 02-07-2025 MCH (RBC) [Entitic mass] 29.0 pg 27.0-32.0 [facility] Monocyte percentageOrdered B y: ED PROVIDER on 02-07-2025 Monocytes/100 WBC (Bld) 8.1 % 0-10 [facility] Neutrophil percentageOrdered By: ED PROVIDER on 02-07-2025 Neutrophils/100 WBC (Bld) 72.8 % High 47-70 [facility] No Panel InformationOrdered By: ED PROVIDER on 02-07-2025 55 U/L High <38 [facility] Platelet countOrdered By: ED PROVIDER on 02-07-2025 Platelets (Bld) [#/Vol] 131 10*3/uL Low 150-450 [facility] Potassium measurement (mass/ volume)Ordered By: ED PROVIDER on 02-07-2025 Potassium (Unsp spec) [Mass/Vol] 3.7 mmol/L 3.3-5.1 [facility] RBC Auto (Bld) [#/Vol]Ordere d By: ED PROVIDER on 02-07-2025 RBC (Bld) [#/Vol] 3.17 10*6/uL Low 4.6-6.2 [facility] Serum creatinine measurement (mass/volume)Ordered By: ED PROVIDER on 02-07-2025 Creatinine [Mass/Vol] 1.05 mg/dL 0.70-1.20 [facility] Serum globulin measurementOr dered By: ED PROVIDER on 02-07-2025 Globulin (S) [Mass/Vol] 3.5 g/dL 2.2-4.2 [facility] Serum glucose measurement (m ass/volume)Ordered By: ED PROVIDER on 02-07-2025 Glucose [Mass/Vol] 142 mg/dL High 70-99 [facility] Serum or plasma alanine thomas otransferase (ALT) measurementOrdered By: ED PROVIDER on 02-07-2025 ALT [Catalytic activity/Vol] 30 U/L <47 [facility] Serum or plasma albumin roosevelt urement (mass/volume)Ordered By: ED PROVIDER on 02-07-2025 Albumin [Mass/Vol] 2.2 g/dL Low 3.5-5.0 [facility] Serum or plasma albumin/glob ulin mass ratioOrdered By: ED PROVIDER on 02-07-2025 Albumin/Globulin [Mass ratio] 0.6 {ratio} Low 0.9-2.4 [facility] Serum or plasma alkaline kendrick sphatase measurementOrdered By: ED PROVIDER on 02-07-2025 ALP [Catalytic activity/Vol] 218 U/L High 40-129 [facility] Serum or plasma calcium roosevelt urement (mass/volume)Ordered By: ED PROVIDER on 02-07-2025 Calcium [Mass/Vol] 8.4 mg/dL 7.6-11.0 [facility] Serum or plasma urea nitroge n measurement (mass/volume)Ordered By: ED PROVIDER on 02-07-2025 Urea nitrogen [Mass/Vol] 15 mg/dL 4-19 [facility] Sodium levelOrdered By: JOY NUNEZ on 02-07-2025 Sodium [Moles/Vol] 137 mmol/L 133-145 [facility] Total proteinOrdered By: ED PROVIDER on 02-07-2025 Protein [Mass/Vol] 5.8 g/dL Low 5.9-8.4 [facility] White blood cell (WBC) count Ordered By: ED PROVIDER on 02-07-2025 WBC (Bld) [#/Vol] 10.8 10*3/uL 4.4-11.0 [facility] Culture, Blood (WB)on 2024 CUB Blood cultures x2, f rom two different sites No growth in 5 days. Normal [facility] Comment on above: Performed By: #### M 200.1000 ####[facility] [address] [place], [address] Anion gap in Serum or Plasma Ordered By: Yaritza Leo on 01-31-2025 Anion gap [Moles/Vol] 9 mmol/L 5-15 [facility] BUN/creatinine ratioOrdered By: Yaritza Leo on 01-31-2025 Urea nitrogen/Creatinine [Mass ratio] 10.7 mg/mg 10- [facility] Basic Metabolic Profile (BMP )on 01-31-2025 BUN/CRE 10.7 RATIO Normal - [facility] Comment on above: Performed By: #### L 500.2500, L100.0500 ####[facility] [address] [place], [address] Calcium [Mass/Vol] 8.5 mg/dL Normal 7.6-11.0 [facility] Comment on above: Performed By: #### L 500.2500, L100.0500 ####[facility] [address] [place], [address] Chloride [Moles/Vol] 102 mmol/L Normal 98-108 [facility] Comment on above: Performed By: #### L 500.2500, L100.0500 ####[facility] [address] [place], [address] CO2 [Moles/Vol] 22.6 mmol/L Normal 21.0-32.0 [facility] Comment on above: Performed By: #### L 500.2500, L100.0500 ####[facility] [address] [place], [address] Creatinine [Mass/Vol] 0.95 mg/dL Normal 0.70-1.20 [facility] Comment on above: Performed By: #### L 500.2500, L100.0500 ####[facility] [address] [place], [address] ECRCL 108.71 ml/min Normal 50-250 [facility] Comment on above: Performed By: #### L 500.2500, L100.0500 ####[facility] [address] [place], [address] GAP 9 Normal 5-15 [facility] Comment on above: Performed By: #### L 500.2500, L100.0500 ####[facility] [address] [place], [address] GFR/1.73 sq M.predicted among non-blacks MDRD (S/P/Bld) [Vol rate/Area] 93 mL/min/{1.73_m2} Normal >60 [facility] Comment on above: Result Comment: mL/m in/1.73m2 CKD-EPI Creatinine Equation (2020) Performed By: #### L 500.2500, L100.0500 ####[facility] [address] [place], [address] Glucose [Mass/Vol] 143 mg/dL High 70-99 [facility] Comment on above: Performed By: #### L 500.2500, L100.0500 ####[facility] [address] [place], [address] Potassium [Moles/Vol] 3.9 mmol/L Normal 3.3-5.1 [facility] Comment on above: Performed By: #### L 500.2500, L100.0500 ####[facility] [address] [place], [address] Sodium [Moles/Vol] 133 mmol/L Normal 133-145 [facility] Comment on above: Performed By: #### L 500.2500, L100.0500 ####[facility] [address] [place], [address] Urea nitrogen [Mass/Vol] 10 mg/dL Normal 4-19 [facility] Comment on above: Performed By: #### L 500.2500, L100.0500 ####[facility] [address] [place], [address] Bedside Glucoseon 01-31-2025 FINGERSTICK GLU 129 mg/dL High 74-106 [facility] Comment on above: Result Comment: BRISA GEMENT OF PATIENT CARE PER NURSING PROTOCOL Performed By: #### L 501.080 ####[facility] [address] [place], [address] FINGERSTICK GLU 179 mg/dL High 74-106 [facility] Comment on above: Result Comment: BRISA GEMENT OF PATIENT CARE PER NURSING PROTOCOL Performed By: #### L 501.080 ####[facility] [address] [place], [address] FINGERSTICK GLU 149 mg/dL High 74-106 [facility] Comment on above: Result Comment: BRISA GEMENT OF PATIENT CARE PER NURSING PROTOCOL Performed By: #### L 501.080 ####[facility] [address] [place], [address] CBC-Complete Blood Cnt No Di ffon 01-31-2025 Erythrocyte distribution width (RBC) [Ratio] 17.7 % High 11.6-14.6 [facility] Comment on above: Performed By: #### L 500.2500, L100.0500 ####[facility] [address] [place], [address] Hematocrit (Bld) [Volume fraction] 23.8 % Low 40-54 [facility] Comment on above: Performed By: #### L 500.2500, L100.0500 ####[facility] [address] [place], [address] Hemoglobin (Bld) [Mass/Vol] 7.9 g/dL Low 13.0-16.5 [facility] Comment on above: Performed By: #### L 500.2500, L100.0500 ####[facility] [address] [place], [address] MCH (RBC) [Entitic mass] 29.8 pg Normal 27.0-32.0 [facility] Comment on above: Performed By: #### L 500.2500, L100.0500 ####[facility] [address] [place], [address] MCHC (RBC) [Mass/Vol] 33.2 g/dL Normal 32-36 [facility] Comment on above: Performed By: #### L 500.2500, L100.0500 ####[facility] [address] [place], [address] MCV (RBC) [Entitic vol] 89.8 fL Normal 80-94 [facility] Comment on above: Performed By: #### L 500.2500, L100.0500 ####[facility] [address] [place], [address] Platelet mean volume (Bld) [Entitic vol] 10.6 fL Normal 6.2-12.0 [facility] Comment on above: Performed By: #### L 500.2500, L100.0500 ####[facility] [address] [place], [address] Platelets (Bld) [#/Vol] 108 10*3/uL Low 150-450 [facility] Comment on above: Performed By: #### L 500.2500, L100.0500 ####[facility] [address] [place], [address] RBC (Bld) [#/Vol] 2.65 10*6/uL Low 4.6-6.2 [facility] Comment on above: Performed By: #### L 500.2500, L100.0500 ####[facility] [address] [place], [address] RDW SD 56.9 fl High 35.1-43.9 [facility] Comment on above: Performed By: #### L 500.2500, L100.0500 ####[facility] [address] [place], [address] WBC (Bld) [#/Vol] 5.9 10*3/uL Normal 4.4-11.0 [facility] Comment on above: Performed By: #### L 500.2500, L100.0500 ####[facility] [address] [place], [address] Carbon dioxide, total [Moles /volume] in Central venous bloodOrdered By: Yaritza Leo on 01-31-2025 CO2 [Moles/Vol] 22.6 mmol/L 21.0-32.0 [facility] Chloride assayOrdered By: Raad Leo on 01-31-2025 Chloride [Moles/Vol] 102 mmol/L 98-108 [facility] Erythrocyte distribution wid th ratioOrdered By: Yaritza Leo on 01-31-2025 Erythrocyte distribution width (RBC) [Ratio] 17.7 % High 11.6-14.6 [facility] Erythrocyte distribution wid th standard deviationOrdered By: Yaritza Leo on 01-31-2025 Erythrocyte distribution width (RBC) [Ratio] 56.9 fl High 35.1-43.9 [facility] Glomerular filtration rate ( GFR) estimation/1.73 sq m using serum, plasma, or whole bOrdered By: Yaritza Leo on 01-31-2025 GFR/1.73 sq M.predicted among non-blacks MDRD (S/P/Bld) [Vol rate/Area] 93 mL/min/{1.73_m2} >60 [facility] deOrdered By: Yaritza Leo on 01-31-2025 Glucose [Mass/Vol] 129 mg/dL High 74-106 [facility] Hematocrit Auto (Bld) [Volum e fraction]Ordered By: Yaritza Leo on 01-31-2025 Hematocrit (Bld) [Volume fraction] 23.8 % Low 40-54 [facility] Hemoglobin measurementOrdere d By: Yaritza Leo on 01-31-2025 Hemoglobin (Bld) [Mass/Vol] 7.9 g/dL Low 13.0-16.5 [facility] MCV (mean corpuscular volume ) determinationOrdered By: Yaritza Leo on 01-31-2025 MCV (RBC) [Entitic vol] 89.8 fL 80-94 [facility] Mean corpuscular hemoglobin (MCH) determinationOrdered By: Yaritza Leo on 01-31-2025 MCH (RBC) [Entitic mass] 29.8 pg 27.0-32.0 [facility] Platelet countOrdered By: Raad Leo on 01-31-2025 Platelets (Bld) [#/Vol] 108 10*3/uL Low 150-450 [facility] Potassium measurement (mass/ volume)Ordered By: Yaritza Leo on 01-31-2025 Potassium (Unsp spec) [Mass/Vol] 3.9 mmol/L 3.3-5.1 [facility] RBC Auto (Bld) [#/Vol]Ordere d By: Yaritza Leo on 01-31-2025 RBC (Bld) [#/Vol] 2.65 10*6/uL Low 4.6-6.2 [facility] Serum creatinine measurement (mass/volume)Ordered By: Yaritza Leo on 01-31-2025 Creatinine [Mass/Vol] 0.95 mg/dL 0.70-1.20 [facility] Serum glucose measurement (m ass/volume)Ordered By: Yaritza Leo on 01-31-2025 Glucose [Mass/Vol] 143 mg/dL High 70-99 [facility] Serum or plasma calcium roosevetl urement (mass/volume)Ordered By: Yaritza Leo on 01-31-2025 Calcium [Mass/Vol] 8.5 mg/dL 7.6-11.0 [facility] Serum or plasma urea nitroge n measurement (mass/volume)Ordered By: Yaritza Leo on 01-31-2025 Urea nitrogen [Mass/Vol] 10 mg/dL 4-19 [facility] Sodium levelOrdered By: Saritha Leo on 01-31-2025 Sodium [Moles/Vol] 133 mmol/L 133-145 [facility] White blood cell (WBC) count Ordered By: Yaritza Leo on 01-31-2025 WBC (Bld) [#/Vol] 5.9 10*3/uL 4.4-11.0 [facility] Absolute lymphocyte countOrd ered By: Yaritza Leo on 01-30-2025 Lymphocytes Auto (Unsp spec) [#/Vol] 1.08 10*3/uL 0.83-4.51 [facility] Automated lymphocyte count a s percentage of total leukocytesOrdered By: Yaritza Leo on 01-30-2025 Lymphocytes/100 WBC Auto (Unsp spec) 20.0 % 19-41 [facility] Basic Metabolic Profile (BMP )on 01-30-2025 BUN/CRE 10.1 RATIO Normal 10-20 [facility] Comment on above: Performed By: #### L 501.5200, L500.2500, L501.2300, L100.0100 ####[facility] [address] [place], [address] Calcium [Mass/Vol] 8.4 mg/dL Normal 7.6-11.0 [facility] Comment on above: Performed By: #### L 501.5200, L500.2500, L501.2300, L100.0100 ####[facility] [address] [place], [address] Chloride [Moles/Vol] 101 mmol/L Normal 98-108 [facility] Comment on above: Performed By: #### L 501.5200, L500.2500, L501.2300, L100.0100 ####[facility] [address] [place], [address] CO2 [Moles/Vol] 17.3 mmol/L Low 21.0-32.0 [facility] Comment on above: Performed By: #### L 501.5200, L500.2500, L501.2300, L100.0100 ####[facility] [address] [place], [address] Creatinine [Mass/Vol] 0.93 mg/dL Normal 0.70-1.20 [facility] Comment on above: Performed By: #### L 501.5200, L500.2500, L501.2300, L100.0100 ####[facility] [address] [place], [address] ECRCL 111.05 ml/min Normal 50-250 [facility] Comment on above: Performed By: #### L 501.5200, L500.2500, L501.2300, L100.0100 ####[facility] [address] [place], [address] GAP 13 Normal 5-15 [facility] Comment on above: Performed By: #### L 501.5200, L500.2500, L501.2300, L100.0100 ####[facility] [address] [place], [address] GFR/1.73 sq M.predicted among non-blacks MDRD (S/P/Bld) [Vol rate/Area] 95 mL/min/{1.73_m2} Normal >60 [facility] Comment on above: Result Comment: mL/m in/1.73m2 CKD-EPI Creatinine Equation (2020) Performed By: #### L 501.5200, L500.2500, L501.2300, L100.0100 ####[facility] [address] [place], [address] Glucose [Mass/Vol] 139 mg/dL High 70-99 [facility] Comment on above: Performed By: #### L 501.5200, L500.2500, L501.2300, L100.0100 ####[facility] [address] [place], [address] Potassium [Moles/Vol] 3.5 mmol/L Normal 3.3-5.1 [facility] Comment on above: Result Comment: Hemo lysis present, Results??could be affected.?? Performed By: #### L 501.5200, L500.2500, L501.2300, L100.0100 ####[facility] [address] [place], [address] Sodium [Moles/Vol] 131 mmol/L Low 133-145 [facility] Comment on above: Performed By: #### L 501.5200, L500.2500, L501.2300, L100.0100 ####[facility] [address] [place], [address] Urea nitrogen [Mass/Vol] 9 mg/dL Normal 4-19 [facility] Comment on above: Performed By: #### L 501.5200, L500.2500, L501.2300, L100.0100 ####[facility] [address] [place], [address] Basophil percentageOrdered B y: Yaritzasumaya Leo on 01-30-2025 Basophils/100 WBC (Bld) 0.7 % Normal 0-1 [facility] Comment on above: Performed By: #### L 501.5200, L500.2500, L501.2300, L100.0100 ####[facility] [address] [place], [address] Bedside Glucoseon 01-30-2025 FINGERSTICK GLU 170 mg/dL High 74-106 [facility] Comment on above: Result Comment: BRISA GEMENT OF PATIENT CARE PER NURSING PROTOCOL Performed By: #### L 501.080 ####[facility] [address] [place], [address] FINGERSTICK GLU 122 mg/dL High 74-106 [facility] Comment on above: Result Comment: BRISA GEMENT OF PATIENT CARE PER NURSING PROTOCOL Performed By: #### L 501.080 ####[facility] [address] [place], [address] FINGERSTICK GLU 119 mg/dL High 74-106 [facility] Comment on above: Result Comment: BRISA GEMENT OF PATIENT CARE PER NURSING PROTOCOL Performed By: #### L 501.080 ####[facility] [address] [place], [address] FINGERSTICK GLU 116 mg/dL High 74-106 [facility] Comment on above: Result Comment: BRISA GEMENT OF PATIENT CARE PER NURSING PROTOCOL Performed By: #### L 501.080 ####[facility] [address] [place], [address] CBC W/Diff, Automatedon 06-2 Absolute Lymph 1.08 X10 3/uL Normal 0.83-4.51 [facility] Comment on above: Performed By: #### L 501.5200, L500.2500, L501.2300, L100.0100 ####[facility] [address] [place], [address] Absolute Neut 2.9 X10 3/uL Normal 2.0-7.7 [facility] Comment on above: Performed By: #### L 501.5200, L500.2500, L501.2300, L100.0100 ####[facility] [address] [place], [address] Erythrocyte distribution width (RBC) [Ratio] 18.1 % High 11.6-14.6 [facility] Comment on above: Performed By: #### L 501.5200, L500.2500, L501.2300, L100.0100 ####[facility] [address] [place], [address] Hematocrit (Bld) [Volume fraction] 24.1 % Low 40-54 [facility] Comment on above: Performed By: #### L 501.5200, L500.2500, L501.2300, L100.0100 ####[facility] [address] [place], [address] Hemoglobin (Bld) [Mass/Vol] 7.7 g/dL Low 13.0-16.5 [facility] Comment on above: Performed By: #### L 501.5200, L500.2500, L501.2300, L100.0100 ####[facility] [address] [place], [address] IG% 0.600 Normal 0.0-0.9 [facility] Comment on above: Result Comment: IG% - Immature Granulocytes (promyelocytes, myelocytes andmetamyelocytes) > 1% indicates that a LEFT SHIFT is Present. Performed By: #### L 501.5200, L500.2500, L501.2300, L100.0100 ####[facility] [address] [place], [address] Lymphocytes/100 WBC (Bld) 20.0 % Normal 19-41 [facility] Comment on above: Performed By: #### L 501.5200, L500.2500, L501.2300, L100.0100 ####[facility] [address] [place], [address] MCH (RBC) [Entitic mass] 29.2 pg Normal 27.0-32.0 [facility] Comment on above: Performed By: #### L 501.5200, L500.2500, L501.2300, L100.0100 ####[facility] [address] [place], [address] MCHC (RBC) [Mass/Vol] 32.0 g/dL Normal 32-36 [facility] Comment on above: Performed By: #### L 501.5200, L500.2500, L501.2300, L100.0100 ####[facility] [address] [place], [address] MCV (RBC) [Entitic vol] 91.3 fL Normal 80-94 [facility] Comment on above: Performed By: #### L 501.5200, L500.2500, L501.2300, L100.0100 ####[facility] [address] [place], [address] Nucleated RBC (Bld) [#/Vol] 0 10*3/uL Normal 0-5 [facility] Comment on above: Performed By: #### L 501.5200, L500.2500, L501.2300, L100.0100 ####[facility] [address] [place], [address] Platelet mean volume (Bld) [Entitic vol] 10.5 fL Normal 6.2-12.0 [facility] Comment on above: Performed By: #### L 501.5200, L500.2500, L501.2300, L100.0100 ####[facility] [address] [place], [address] Platelets (Bld) [#/Vol] 108 10*3/uL Low 150-450 [facility] Comment on above: Performed By: #### L 501.5200, L500.2500, L501.2300, L100.0100 ####[facility] [address] [place], [address] RBC (Bld) [#/Vol] 2.64 10*6/uL Low 4.6-6.2 [facility] Comment on above: Performed By: #### L 501.5200, L500.2500, L501.2300, L100.0100 ####[facility] [address] [place], [address] RDW SD 61.1 fl High 35.1-43.9 [facility] Comment on above: Performed By: #### L 501.5200, L500.2500, L501.2300, L100.0100 ####[facility] [address] [place], [address] WBC (Bld) [#/Vol] 5.4 10*3/uL Normal 4.4-11.0 [facility] Comment on above: Performed By: #### L 501.5200, L500.2500, L501.2300, L100.0100 ####[facility] [address] [place], [address] Eosinophil percentageOrdered By: Yaritza Leo on 01-30-2025 Eosinophils/100 WBC (Bld) 7.0 % High 0-5 [facility] Comment on above: Performed By: #### L 501.5200, L500.2500, L501.2300, L100.0100 ####[facility] [address] [place], [address] Immature granulocytes/100 WB C Auto (Bld)Ordered By: Yaritza Leo on 01-30-2025 Immature granulocytes/100 WBC (Bld) 0.600 % 0.0-0.9 [facility] Magnesiumon 01-30-2025 Magnesium [Mass/Vol] 1.7 mg/dL Normal 1.5-2.2 [facility] Comment on above: Performed By: #### L 501.5200, L500.2500, L501.2300, L100.0100 ####[facility] [address] [place], [address] Magnesium measurement (mass/ volume)Ordered By: Yaritza Leo on 01-30-2025 Magnesium (Unsp spec) [Mass/Vol] 1.7 mg/dL 1.5-2.2 [facility] Monocyte percentageOrdered B y: Yaritza Leo on 01-30-2025 Monocytes/100 WBC (Bld) 18.5 % High 0-10 [facility] Comment on above: Performed By: #### L 501.5200, L500.2500, L501.2300, L100.0100 ####[facility] [address] [place], [address] Neutrophil percentageOrdered By: Yaritza Leo on 01-30-2025 Neutrophils/100 WBC (Bld) 53.2 % Normal 47-70 [facility] Comment on above: Performed By: #### L 501.5200, L500.2500, L501.2300, L100.0100 ####[facility] [address] [place], [address] Phosphoruson 01-30-2025 Phosphate [Mass/Vol] 2.7 mg/dL Normal 2.7-4.5 [facility] Comment on above: Performed By: #### L 501.5200, L500.2500, L501.2300, L100.0100 ####[facility] [address] [place], [address] Urine Cultureon 01-30-2025 URC Normal [facility] Comment on above: Performed By: #### M 100.2200 ####[facility] [address] [place], [address] Bedside Glucoseon 01-29-2025 FINGERSTICK GLU 174 mg/dL High 74-106 [facility] Comment on above: Result Comment: BRISA MOROCHO OF PATIENT CARE PER NURSING PROTOCOL Performed By: #### L 501.080 ####[facility] [address] [place], [address] FINGERSTICK GLU 163 mg/dL High 74-106 [facility] Comment on above: Result Comment: BRISA GEMENT OF PATIENT CARE PER NURSING PROTOCOL Performed By: #### L 501.080 ####[facility] [address] [place], [address] FINGERSTICK GLU 196 mg/dL High 74-106 [facility] Comment on above: Result Comment: BRISA GEMENT OF PATIENT CARE PER NURSING PROTOCOL Performed By: #### L 501.080 ####[facility] [address] [place], [address] FINGERSTICK GLU 237 mg/dL High -106 [facility] Comment on above: Result Comment: BRISA GEMENT OF PATIENT CARE PER NURSING PROTOCOL Performed By: #### L 501.080 ####[facility] [address] [place], [address] FINGERSTICK GLU 172 mg/dL High 74-106 [facility] Comment on above: Result Comment: BRISA GEMENT OF PATIENT CARE PER NURSING PROTOCOL Performed By: #### L 501.080 ####[facility] [address] [place], [address] Bilirubin, totalOrdered By: Boone Izquierdo on 01-29-2025 Bilirubin [Mass/Vol] 1.81 mg/dL High 0.00-1.30 [facility] CBC W/Diff, Automatedon 01-03 Absolute Lymph 0.83 X10 3/uL Normal 0.83-4.51 [facility] Comment on above: Performed By: #### L 500.4050, L100.0100 ####[facility] [address] [place], [address] Absolute Neut 3.0 X10 3/uL Normal 2.0-7.7 [facility] Comment on above: Performed By: #### L 500.4050, L100.0100 ####[facility] [address] [place], [address] Basophils/100 WBC (Bld) 0.8 % Normal 0-1 [facility] Comment on above: Performed By: #### L 500.4050, L100.0100 ####[facility] [address] [place], [address] Eosinophils/100 WBC (Bld) 5.3 % High 0-5 [facility] Comment on above: Performed By: #### L 500.4050, L100.0100 ####[facility] [address] [place], [address] Erythrocyte distribution width (RBC) [Ratio] 18.4 % High 11.6-14.6 [facility] Comment on above: Performed By: #### L 500.4050, L100.0100 ####[facility] [address] [place], [address] Hematocrit (Bld) [Volume fraction] 24.8 % Low 40-54 [facility] Comment on above: Performed By: #### L 500.4050, L100.0100 ####[facility] [address] [place], [address] Hemoglobin (Bld) [Mass/Vol] 8.1 g/dL Low 13.0-16.5 [facility] Comment on above: Performed By: #### L 500.4050, L100.0100 ####[facility] [address] [place], [address] IG% 0.800 Normal 0.0-0.9 [facility] Comment on above: Result Comment: IG% - Immature Granulocytes (promyelocytes, myelocytes andmetamyelocytes) > 1% indicates that a LEFT SHIFT is Present. Performed By: #### L 500.4050, L100.0100 ####[facility] [address] [place], [address] Lymphocytes/100 WBC (Bld) 17.1 % Low 19-41 [facility] Comment on above: Performed By: #### L 500.4050, L100.0100 ####[facility] [address] [place], [address] MCH (RBC) [Entitic mass] 29.6 pg Normal 27.0-32.0 [facility] Comment on above: Performed By: #### L 500.4050, L100.0100 ####[facility] [address] [place], [address] MCHC (RBC) [Mass/Vol] 32.7 g/dL Normal 32-36 [facility] Comment on above: Performed By: #### L 500.4050, L100.0100 ####[facility] [address] [place], [address] MCV (RBC) [Entitic vol] 90.5 fL Normal 80-94 [facility] Comment on above: Performed By: #### L 500.4050, L100.0100 ####[facility] [address] [place], [address] Monocytes/100 WBC (Bld) 15.2 % High 0-10 [facility] Comment on above: Performed By: #### L 500.4050, L100.0100 ####[facility] [address] [place], [address] Neutrophils/100 WBC (Bld) 60.8 % Normal 47-70 [facility] Comment on above: Performed By: #### L 500.4050, L100.0100 ####[facility] [address] [place], [address] Nucleated RBC (Bld) [#/Vol] 0 10*3/uL Normal 0-5 [facility] Comment on above: Performed By: #### L 500.4050, L100.0100 ####[facility] [address] [place], [address] Platelet mean volume (Bld) [Entitic vol] 11.6 fL Normal 6.2-12.0 [facility] Comment on above: Performed By: #### L 500.4050, L100.0100 ####[facility] [address] [place], [address] Platelets (Bld) [#/Vol] 120 10*3/uL Low 150-450 [facility] Comment on above: Performed By: #### L 500.4050, L100.0100 ####[facility] [address] [place], [address] RBC (Bld) [#/Vol] 2.74 10*6/uL Low 4.6-6.2 [facility] Comment on above: Performed By: #### L 500.4050, L100.0100 ####[facility] [address] [place], [address] RDW SD 60.7 fl High 35.1-43.9 [facility] Comment on above: Performed By: #### L 500.4050, L100.0100 ####[facility] [address] [place], [address] WBC (Bld) [#/Vol] 4.9 10*3/uL Normal 4.4-11.0 [facility] Comment on above: Performed By: #### L 500.4050, L100.0100 ####[facility] [address] [place], [address] Comprehensive Metabolic Prof [facility] 01-29-2025 Albumin [Mass/Vol] 2.3 g/dL Low 3.5-5.0 [facility] Comment on above: Performed By: #### L 500.4050, L100.0100 ####[facility] [address] [place], [address] Albumin/Globulin [Mass ratio] 0.8 {ratio} Low 0.9-2.4 [facility] Comment on above: Performed By: #### L 500.4050, L100.0100 ####[facility] [address] [place], [address] ALK PHOS 180 U/L High 40-129 [facility] Comment on above: Performed By: #### L 500.4050, L100.0100 ####[facility] [address] [place], [address] ALT [Catalytic activity/Vol] 30 U/L Normal <=46 [facility] Comment on above: Performed By: #### L 500.4050, L100.0100 ####[facility] [address] [place], [address] AST [Catalytic activity/Vol] 52 U/L High <=37 [facility] Comment on above: Performed By: #### L 500.4050, L100.0100 ####[facility] [address] [place], [address] Bilirubin [Mass/Vol] 1.81 mg/dL High 0.00-1.30 [facility] Comment on above: Performed By: #### L 500.4050, L100.0100 ####[facility] [address] [place], [address] BUN/CRE 11.6 RATIO Normal 10-20 [facility] Comment on above: Performed By: #### L 500.4050, L100.0100 ####[facility] [address] [place], [address] Calcium [Mass/Vol] 8.8 mg/dL Normal 7.6-11.0 [facility] Comment on above: Performed By: #### L 500.4050, L100.0100 ####[facility] [address] [place], [address] Chloride [Moles/Vol] 100 mmol/L Normal 98-108 [facility] Comment on above: Performed By: #### L 500.4050, L100.0100 ####[facility] [address] [place], [address] CO2 [Moles/Vol] 19.5 mmol/L Low 21.0-32.0 [facility] Comment on above: Performed By: #### L 500.4050, L100.0100 ####[facility] [address] [place], [address] Creatinine [Mass/Vol] 1.09 mg/dL Normal 0.70-1.20 [facility] Comment on above: Performed By: #### L 500.4050, L100.0100 ####[facility] [address] [place], [address] ECRCL 94.75 ml/min Normal 50-250 [facility] Comment on above: Performed By: #### L 500.4050, L100.0100 ####[facility] [address] [place], [address] GAP 14 Normal 5-15 [facility] Comment on above: Performed By: #### L 500.4050, L100.0100 ####[facility] [address] [place], [address] GFR/1.73 sq M.predicted among non-blacks MDRD (S/P/Bld) [Vol rate/Area] 79 mL/min/{1.73_m2} Normal >60 [facility] Comment on above: Result Comment: mL/m in/1.73m2 CKD-EPI Creatinine Equation (2020) Performed By: #### L 500.4050, L100.0100 ####[facility] [address] [place], [address] Globulin (S) [Mass/Vol] 3.1 g/dL Normal 2.2-4.2 [facility] Comment on above: Performed By: #### L 500.4050, L100.0100 ####[facility] [address] [place], [address] Glucose [Mass/Vol] 265 mg/dL High 70-99 [facility] Comment on above: Performed By: #### L 500.4050, L100.0100 ####[facility] [address] [place], [address] Potassium [Moles/Vol] 3.5 mmol/L Normal 3.3-5.1 [facility] Comment on above: Performed By: #### L 500.4050, L100.0100 ####[facility] [address] [place], [address] Sodium [Moles/Vol] 133 mmol/L Normal 133-145 [facility] Comment on above: Performed By: #### L 500.4050, L100.0100 ####[facility] [address] [place], [address] T PROT 5.4 g/dL Low 5.9-8.4 [facility] Comment on above: Performed By: #### L 500.4050, L100.0100 ####[facility] [address] [place], [address] Urea nitrogen [Mass/Vol] 13 mg/dL Normal 4-19 [facility] Comment on above: Performed By: #### L 500.4050, L100.0100 ####[facility] [address] [place], [address] No Panel InformationOrdered By: Boone Izquierdo on 01-29-2025 52 U/L High <38 [facility] Serum globulin measurementOr dered By: Boone Izquierdo on 01-29-2025 Globulin (S) [Mass/Vol] 3.1 g/dL 2.2-4.2 [facility] Serum or plasma alanine thomas otransferase (ALT) measurementOrdered By: Boone Izquierdo on 01-29-2025 ALT [Catalytic activity/Vol] 30 U/L <47 [facility] Serum or plasma albumin roosevelt urement (mass/volume)Ordered By: Boone Izquierdo on 01-29-2025 Albumin [Mass/Vol] 2.3 g/dL Low 3.5-5.0 [facility] Serum or plasma albumin/glob ulin mass ratioOrdered By: Boone Izquierdo on 01-29-2025 Albumin/Globulin [Mass ratio] 0.8 {ratio} Low 0.9-2.4 [facility] Serum or plasma alkaline kendrick sphatase measurementOrdered By: Boone Izquierdo on 01-29-2025 ALP [Catalytic activity/Vol] 180 U/L High 40-129 [facility] Total proteinOrdered By: Danita Izquierdo on 01-29-2025 Protein [Mass/Vol] 5.4 g/dL Low 5.9-8.4 [facility] Abdomen/Pelvis W IV Cont ONL Yon 01-28-2025 Abdomen/Pelvis W IV Cont ONLY Normal [facility] Absolute lymphocyte countOrd ered By: Danny Hutton on 01-28-2025 Lymphocytes Auto (Unsp spec) [#/Vol] 0.98 10*3/uL 0.83-4.51 [facility] Activated partial thrombopla stin time (aPTT) in platelet poor plasma by coagulation aOrdered By: Danny Hutton on 01-28-2025 aPTT Coag (PPP) [Time] 38.4 s High 24.1-36.2 [facility] Ammoniaon 01-28-2025 Ammonia (P) [Moles/Vol] 108.0 umol/L High 16-60 [facility] Comment on above: Order Comment: ROSIO Gupta PREVIOUS SPECIMEN REJECTED DUE TOHEMOLYSIS. 01/28/25 [address] Performed By: #### L 503.5510 ####[facility] [address] [place], [place], [phone] Anion gap in Serum or Plasma Ordered By: Danny Hutton on 01-28-2025 Anion gap [Moles/Vol] 14 mmol/L 5- [facility] Automated lymphocyte count a s percentage of total leukocytesOrdered By: Danny Hutton on 01-28-2025 Lymphocytes/100 WBC Auto (Unsp spec) 18.8 % Low 19-41 [facility] BUN/creatinine ratioOrdered By: Dannyjersey Hutton on 01-28-2025 Urea nitrogen/Creatinine [Mass ratio] 12.8 mg/mg 10- [facility] Basic Metabolic Profile (BMP )on 01-28-2025 CO2 [Moles/Vol] 22.1 mmol/L Normal 21.0-32.0 [facility] Comment on above: Performed By: #### L 500.3400, L300.3900, L500.2500, L501.2450, L503.6005, L501.5200, L300.4310, L501.4021, L100.0100, L503.7505 ####[facility] [address] [place], [place], [phone] GAP 14 Normal - [facility] Comment on above: Performed By: #### L 500.3400, L300.3900, L500.2500, L501.2450, L503.6005, L501.5200, L300.4310, L501.4021, L100.0100, L503.7505 ####[facility] [address] [place], [place], [phone] Basophil percentageOrdered B y: Danny Hutton on 01-28-2025 Basophils/100 WBC (Bld) 0.8 % 0-1 [facility] Bedside Glucoseon 01-28-2025 FINGERSTICK GLU 102 mg/dL Normal 74-106 [facility] Comment on above: Result Comment: BRISA MOROCHO OF PATIENT CARE PER NURSING PROTOCOL Performed By: #### L 501.080 ####[facility] [address] [place], [place], [phone] FINGERSTICK GLU 96 mg/dL Normal 74-106 [facility] Comment on above: Result Comment: BRISA MOROCHO OF PATIENT CARE PER NURSING PROTOCOL Performed By: #### L 501.080 ####[facility] [address] [place], [place], [phone] Bilirubin Test strip Ql (U)O rdered By: Danny Hutton on 01-28-2025 Bilirubin Ql (U) Negative Negative [facility] Bilirubin directOrdered By: Danny Hutton on 01-28-2025 Bilirubin.direct [Mass/Vol] 1.04 mg/dL High 0.00-0.30 [facility] Bilirubin, totalOrdered By: Danny Hutton on 01-28-2025 Bilirubin [Mass/Vol] 1.91 mg/dL High 0.00-1.30 [facility] Blood cultureOrdered By: Silvano Hutton on 01-28-2025 Bacteria identified Cx Nom (Bld) No growth in 5 days. [facility] Bacteria identified Cx Nom (Bld) No growth in 5 days. [facility] CBC W/Diff, Automatedon 01-03 Absolute Lymph 0.98 X10 3/uL Normal 0.83-4.51 [facility] Comment on above: Performed By: #### L 500.3400, L300.3900, L500.2500, L501.2450, L503.6005, L501.5200, L300.4310, L501.4021, L100.0100, L503.7505 ####[facility] [address] [place], [place], [phone] Absolute Neut 3.0 X10 3/uL Normal 2.0-7.7 [facility] Comment on above: Performed By: #### L 500.3400, L300.3900, L500.2500, L501.2450, L503.6005, L501.5200, L300.4310, L501.4021, L100.0100, L503.7505 ####[facility] [address], [phone] Basophils/100 WBC (Bld) 0.8 % Normal 0-1 [facility] Comment on above: Performed By: #### L 500.3400, L300.3900, L500.2500, L501.2450, L503.6005, L501.5200, L300.4310, L501.4021, L100.0100, L503.7505 ####[facility] [address] [facility] [place], [address] Eosinophils/100 WBC (Bld) 4.6 % Normal 0-5 [facility] Comment on above: Performed By: #### L 500.3400, L300.3900, L500.2500, L501.2450, L503.6005, L501.5200, L300.4310, L501.4021, L100.0100, L503.7505 ####[facility] [address] [facility] [place], [phone]) Erythrocyte distribution width (RBC) [Ratio] 18.4 % High 11.6-14.6 [facility] Comment on above: Performed By: #### L 500.3400, L300.3900, L500.2500, L501.2450, L503.6005, L501.5200, L300.4310, L501.4021, L100.0100, L503.7505 ####[facility] [address] [facility] [place], [phone]) Hematocrit (Bld) [Volume fraction] 25.2 % Low 40-54 [facility] Comment on above: Performed By: #### L 500.3400, L300.3900, L500.2500, L501.2450, L503.6005, L501.5200, L300.4310, L501.4021, L100.0100, L503.7505 ####[facility] [address], [address] Hemoglobin (Bld) [Mass/Vol] 8.3 g/dL Low 13.0-16.5 [facility] Comment on above: Performed By: #### L 500.3400, L300.3900, L500.2500, L501.2450, L503.6005, L501.5200, L300.4310, L501.4021, L100.0100, L503.7505 ####[facility] [address], [address] IG% 1.300 High 0.0-0.9 [facility] Comment on above: Result Comment: IG% - Immature Granulocytes (promyelocytes, myelocytes andmetamyelocytes) > 1% indicates that a LEFT SHIFT is Present. Performed By: #### L 500.3400, L300.3900, L500.2500, L501.2450, L503.6005, L501.5200, L300.4310, L501.4021, L100.0100, L503.7505 ####[facility] [address], [address] Lymphocytes/100 WBC (Bld) 18.8 % Low 19-41 [facility] Comment on above: Performed By: #### L 500.3400, L300.3900, L500.2500, L501.2450, L503.6005, L501.5200, L300.4310, L501.4021, L100.0100, L503.7505 ####[facility] [address], [address] MCH (RBC) [Entitic mass] 29.4 pg Normal 27.0-32.0 [facility] Comment on above: Performed By: #### L 500.3400, L300.3900, L500.2500, L501.2450, L503.6005, L501.5200, L300.4310, L501.4021, L100.0100, L503.7505 ####[facility] [address], [address] MCHC (RBC) [Mass/Vol] 32.9 g/dL Normal 32-36 [facility] Comment on above: Performed By: #### L 500.3400, L300.3900, L500.2500, L501.2450, L503.6005, L501.5200, L300.4310, L501.4021, L100.0100, L503.7505 ####[facility] [address] [facility] [place], [phone] MCV (RBC) [Entitic vol] 89.4 fL Normal 80-94 [facility] Comment on above: Performed By: #### L 500.3400, L300.3900, L500.2500, L501.2450, L503.6005, L501.5200, L300.4310, L501.4021, L100.0100, L503.7505 ####[facility] [address] [facility] [place], [address] Monocytes/100 WBC (Bld) 16.7 % High 0-10 [facility] Comment on above: Performed By: #### L 500.3400, L300.3900, L500.2500, L501.2450, L503.6005, L501.5200, L300.4310, L501.4021, L100.0100, L503.7505 ####[facility] [address] [facility] [place], [address] Neutrophils/100 WBC (Bld) 57.8 % Normal 47-70 [facility] Comment on above: Performed By: #### L 500.3400, L300.3900, L500.2500, L501.2450, L503.6005, L501.5200, L300.4310, L501.4021, L100.0100, L503.7505 ####[facility] [address], [address] Nucleated RBC (Bld) [#/Vol] 0 10*3/uL Normal 0-5 [facility] Comment on above: Performed By: #### L 500.3400, L300.3900, L500.2500, L501.2450, L503.6005, L501.5200, L300.4310, L501.4021, L100.0100, L503.7505 ####[facility] [address] [facility] [place], [address]( Platelet mean volume (Bld) [Entitic vol] 11.5 fL Normal 6.2-12.0 [facility] Comment on above: Performed By: #### L 500.3400, L300.3900, L500.2500, L501.2450, L503.6005, L501.5200, L300.4310, L501.4021, L100.0100, L503.7505 ####[facility] [address] [facility] [place], [address]( Platelets (Bld) [#/Vol] 115 10*3/uL Low 150-450 [facility] Comment on above: Performed By: #### L 500.3400, L300.3900, L500.2500, L501.2450, L503.6005, L501.5200, L300.4310, L501.4021, L100.0100, L503.7505 ####[facility] [address] [facility] [place], [address] RBC (Bld) [#/Vol] 2.82 10*6/uL Low 4.6-6.2 [facility] Comment on above: Performed By: #### L 500.3400, L300.3900, L500.2500, L501.2450, L503.6005, L501.5200, L300.4310, L501.4021, L100.0100, L503.7505 ####[facility] [address] [place], [place], [phone] RDW SD 60.7 fl High 35.1-43.9 [facility] Comment on above: Performed By: #### L 500.3400, L300.3900, L500.2500, L501.2450, L503.6005, L501.5200, L300.4310, L501.4021, L100.0100, L503.7505 ####[facility] [address] [place], [place], [phone] WBC (Bld) [#/Vol] 5.2 10*3/uL Normal 4.4-11.0 [facility] Comment on above: Performed By: #### L 500.3400, L300.3900, L500.2500, L501.2450, L503.6005, L501.5200, L300.4310, L501.4021, L100.0100, L503.7505 ####[facility] [address] [facility]. [place], [place], [phone] Carbon dioxide, total [Moles /volume] in Central venous bloodOrdered By: Danny Hutton on 01-28-2025 CO2 [Moles/Vol] 22.1 mmol/L 21.0-32.0 [facility] Chest PA and Lateralon 01-28 Chest PA and Lateral Normal [facility] Chloride assayOrdered By: Darin Hutton on 01-28-2025 Chloride [Moles/Vol] 95 mmol/L Low 98-108 [facility] Emergency Department Summary on 01-28-2025 Emergency Department Summary Normal [facility] Eosinophil percentageOrdered By: Danny Hutton on 01-28-2025 Eosinophils/100 WBC (Bld) 4.6 % 0-5 [facility] Erythrocyte distribution wid th ratioOrdered By: Danny Hutton on 01-28-2025 Erythrocyte distribution width (RBC) [Ratio] 18.4 % High 11.6-14.6 [facility] Erythrocyte distribution wid th standard deviationOrdered By: [place] Avani Barker on 01-28-2025 Erythrocyte distribution width (RBC) [Ratio] 60.7 fl High 35.1-43.9 [facility] Glomerular filtration rate ( GFR) estimation/1.73 sq m using serum, plasma, or whole bOrdered By: Danny Hutton on 01-28-2025 GFR/1.73 sq M.predicted among non-blacks MDRD (S/P/Bld) [Vol rate/Area] 73 mL/min/{1.73_m2} >60 [facility] H AND P Exam - Hospitaliston 01-28-2025 H&P Exam - Hospitalist Normal [facility] Hematocrit Auto (Bld) [Volum e fraction]Ordered By: Danny Hutton on 01-28-2025 Hematocrit (Bld) [Volume fraction] 25.2 % Low 40-54 [facility] Hemoglobin measurementOrdere d By: Danny Hutton on 01-28-2025 Hemoglobin (Bld) [Mass/Vol] 8.3 g/dL Low 13.0-16.5 [facility] Immature granulocytes/100 WB C Auto (Bld)Ordered By: Danny Anni on 01-28-2025 Immature granulocytes/100 WBC (Bld) 1.300 % High 0.0-0.9 [facility] Influenza virus A and B and SARS-CoV-2 (COVID-19) and Respiratory syncytial virus RNAOrdered By: Danny Anni on 01-28-2025 SARS-CoV-2 (COVID-19) RNA ANANTH+probe Ql (Unsp spec) [facility] Ketones Test strip Ql (U)Ord ered By: Danny Anni on 01-28-2025 Ketones Ql (U) Negative Negative [facility] L499.0042on 01-28-2025 Trop T High Sen Normal <=22 [facility] Comment on above: Result Comment: Devonte goodwin via OM: Ordered Performed By: #### L 499.0042 ####[facility] [address] [place], [address] L501.4021on 01-28-2025 Trop T High Sen 13 ng/L Normal <=22 [facility] Comment on above: Performed By: #### L 500.3400, L300.3900, L500.2500, L501.2450, L503.6005, L501.5200, L300.4310, L501.4021, L100.0100, L503.7505 ####[facility] [address], [address] L503.7505on 01-28-2025 Natriuretic peptide B (Bld) [Mass/Vol] 140 pg/mL Normal <=900 [facility] Comment on above: Result Comment: Hear t Failure Unlikely: < 300 pg/mLHeart Failure Likely< 50 Years: > 450 pg/mL50-75 Years: > 900 pg/mL>75 Years: > 1800 pg/mL Performed By: #### L 500.3400, L300.3900, L500.2500, L501.2450, L503.6005, L501.5200, L300.4310, L501.4021, L100.0100, L503.7505 ####[facility] [address], [address] Lactic Acidon 01-28-2025 Lactate [Moles/Vol] 2.8 mmol/L Invalid Interpretation Code 0.0-2.0 [facility] Comment on above: Result Comment: Crit ical Result(s) Called at: 01/28/2025-09:07 by: Jennifer Marsh.??Results read back by same. Performed By: #### L 503.5835 ####[facility] [address], [address] Lactate [Moles/Vol] 3.4 mmol/L Invalid Interpretation Code 0.0-2.0 [facility] Comment on above: Order Comment: Y Result Comment: Crit ical Result(s) Called at: 01/28/2025-04:24 by: Jennifer to Arianna Lirauzma.??Results read back by same. Performed By: #### L 500.3400, L300.3900, L500.2500, L501.2450, L503.6005, L501.5200, L300.4310, L501.4021, L100.0100, L503.7505 ####[facility] [address] [place], [place], [phone] Lipaseon 01-28-2025 Lipase [Catalytic activity/Vol] 33 U/L Normal 13-75 [facility] Comment on above: Result Comment: Plea se note:LIPASE revised reference range effective 22.New Lipase methodology. Expected to produce lower valuesthan the previous assay method.NEW Reference Range: 13 - 75 U/L Performed By: #### L 500.3400, L300.3900, L500.2500, L501.2450, L503.6005, L501.5200, L300.4310, L501.4021, L100.0100, L503.7505 ####[facility] [address] [place], [place], [phone] Liver Profileon 01-28-2025 Albumin [Mass/Vol] 2.5 g/dL Low 3.5-5.0 [facility] Comment on above: Performed By: #### L 500.3400, L300.3900, L500.2500, L501.2450, L503.6005, L501.5200, L300.4310, L501.4021, L100.0100, L503.7505 ####[facility] [address] [place], [place], [phone] ALK PHOS 201 U/L High 40-129 [facility] Comment on above: Performed By: #### L 500.3400, L300.3900, L500.2500, L501.2450, L503.6005, L501.5200, L300.4310, L501.4021, L100.0100, L503.7505 ####[facility] [address] [place], [address] ALT [Catalytic activity/Vol] 31 U/L Normal <=46 [facility] Comment on above: Performed By: #### L 500.3400, L300.3900, L500.2500, L501.2450, L503.6005, L501.5200, L300.4310, L501.4021, L100.0100, L503.7505 ####[facility] [address] [place], [place], [phone]) AST [Catalytic activity/Vol] 58 U/L High <=37 [facility] Comment on above: Performed By: #### L 500.3400, L300.3900, L500.2500, L501.2450, L503.6005, L501.5200, L300.4310, L501.4021, L100.0100, L503.7505 ####[facility] [address] [place], [address] Bilirubin [Mass/Vol] 1.91 mg/dL High 0.00-1.30 [facility] Comment on above: Performed By: #### L 500.3400, L300.3900, L500.2500, L501.2450, L503.6005, L501.5200, L300.4310, L501.4021, L100.0100, L503.7505 ####[facility] [address] [place], [address] Bilirubin.direct [Mass/Vol] 1.04 mg/dL High 0.00-0.30 [facility] Comment on above: Performed By: #### L 500.3400, L300.3900, L500.2500, L501.2450, L503.6005, L501.5200, L300.4310, L501.4021, L100.0100, L503.7505 ####[facility] [address] [place], [address] Globulin (S) [Mass/Vol] 3.3 g/dL Normal 2.2-4.2 [facility] Comment on above: Performed By: #### L 500.3400, L300.3900, L500.2500, L501.2450, L503.6005, L501.5200, L300.4310, L501.4021, L100.0100, L503.7505 ####[facility] [address] [place], [address] T PROT 5.9 g/dL Normal 5.9-8.4 [facility] Comment on above: Performed By: #### L 500.3400, L300.3900, L500.2500, L501.2450, L503.6005, L501.5200, L300.4310, L501.4021, L100.0100, L503.7505 ####[facility] [address] [place], [address] M100.678on 01-28-2025 M100.678 SARS-CoV-2 (COVID 19 ) Negative INFLUENZA A Negative INFLUENZA B Negative RSV PCR Negative Normal [facility] Comment on above: Performed By: #### M 100.678 ####[facility] [address] [place], [place], [id number]) MCV (mean corpuscular volume ) determinationOrdered By: Danny Hutton on 01-28-2025 MCV (RBC) [Entitic vol] 89.4 fL 80-[address] [facility] [facility]25 Magnesium [Mass/Vol] 1.7 mg/dL Normal 1.5-2.2 [facility] Comment on above: Performed By: #### L 500.3400, L300.3900, L500.2500, L501.2450, L503.6005, L501.5200, L300.4310, L501.4021, L100.0100, L503.7505 ####[facility] [address] [place], [place], [id number] Magnesium measurement (mass/ volume)Ordered By: Danny Hutton on 01-28-2025 Magnesium (Unsp spec) [Mass/Vol] 1.7 mg/dL 1.5-2.2 [facility] Mean corpuscular hemoglobin (MCH) determinationOrdered By: Danny Hutton on 01-28-2025 MCH (RBC) [Entitic mass] 29.4 pg 27.0-32.0 [facility] Monocyte percentageOrdered B y: Danny Hutton on 01-28-2025 Monocytes/100 WBC (Bld) 16.7 % High 0-10 [facility] Mucus LM Ql (Urine sed)Order ed By: Danny Hutton on 01-28-2025 Mucus Ql (Urine sed) 0 SEEN /hpf [facility] Natriuretic peptide.B prohor prachi N-Terminal [Mass/volume] in Serum or PlasmaOrdered By: Danny Hutton on 01-28-2025 Natriuretic peptide.B prohormone N-Terminal [Mass/Vol] 140 pg/mL <900 [facility] Neutrophil percentageOrdered By: Danny Anni on 01-28-2025 Neutrophils/100 WBC (Bld) 57.8 % 47-70 [facility] Nitrite Test strip Ql (U)Ord ered By: Danny Hutton on 01-28-2025 Nitrite Ql (U) Negative Negative [facility] No Panel InformationOrdered By: [place] Anni on 01-28-2025 58 U/L High <38 [facility] Partial Thromboplast Timeon 01-28-2025 aPTT Coag (Bld) [Time] 38.4 s High 24.1-36.2 [facility] Comment on above: Performed By: #### L 500.3400, L300.3900, L500.2500, L501.2450, L503.6005, L501.5200, L300.4310, L501.4021, L100.0100, L503.7505 ####[facility] [address] [place], [place], [id number] Platelet countOrdered By: Darin Hutton on 01-28-2025 Platelets (Bld) [#/Vol] 115 10*3/uL Low 150-450 [facility] Potassium measurement (mass/ volume)Ordered By: Danny Jack on 01-28-2025 Potassium (Unsp spec) [Mass/Vol] 3.4 mmol/L 3.3-5.1 [facility] Protein Test strip Ql (U)Ord ered By: Danny Hutton on 01-28-2025 Protein Ql (U) 100 mg/dl High Negative [facility] Prothrombin Time w/INRon INR Coag (PPP) [Relative time] 1.7 {INR} Normal [facility] Comment on above: Performed By: #### L 500.3400, L300.3900, L500.2500, L501.2450, L503.6005, L501.5200, L300.4310, L501.4021, L100.0100, L503.7505 ####[facility] [address] [place], [place], [phone] PT Coag (PPP) [Time] 20.0 s High 11.7-14.9 [facility] Comment on above: Performed By: #### L 500.3400, L300.3900, L500.2500, L501.2450, L503.6005, L501.5200, L300.4310, L501.4021, L100.0100, L503.7505 ####[facility] [address] [place], [address] Prothrombin timeOrdered By: Danny Hutton on 01-28-2025 PT Coag (PPP) [Time] 20.0 s High 11.7-14.9 [facility] RBC Auto (Bld) [#/Vol]Ordere d By: Danny Hutton on 01-28-2025 RBC (Bld) [#/Vol] 2.82 10*6/uL Low 4.6-6.2 [facility] Serum creatinine measurement (mass/volume)Ordered By: Danny Hutton on 01-28-2025 Creatinine [Mass/Vol] 1.16 mg/dL 0.70-1.20 [facility] Serum globulin measurementOr dered By: Danny Hutton on 01-28-2025 Globulin (S) [Mass/Vol] 3.3 g/dL 2.2-4.2 [facility] Serum glucose measurement (m ass/volume)Ordered By: Danny Hutton on 01-28-2025 Glucose [Mass/Vol] 93 mg/dL 70-99 [facility] Serum or plasma alanine thomas otransferase (ALT) measurementOrdered By: Danny Hutton on 01-28-2025 ALT [Catalytic activity/Vol] 31 U/L <47 [facility] Serum or plasma albumin roosevelt urement (mass/volume)Ordered By: Danny Barker on 01-28-2025 Albumin [Mass/Vol] 2.5 g/dL Low 3.5-5.0 [facility] Serum or plasma alkaline kendrick sphatase measurementOrdered By: Danny Hutton on 01-28-2025 ALP [Catalytic activity/Vol] 201 U/L High 40-129 [facility] Serum or plasma calcium roosevelt urement (mass/volume)Ordered By: Danny Barker on 01-28-2025 Calcium [Mass/Vol] 8.9 mg/dL 7.6-11.0 [facility] Serum or plasma urea nitroge n measurement (mass/volume)Ordered By: Danny Hutton on 01-28-2025 Urea nitrogen [Mass/Vol] 15 mg/dL 4-19 [facility] Sodium levelOrdered By: Srinath Hutton on 01-28-2025 Sodium [Moles/Vol] 131 mmol/L Low 133-145 [facility] Squamous epithelial cells de tection in urine sediment by light microscopyOrdered By: Danny Hutton on 01-28-2025 Epithelial cells.squamous LM Ql (Urine sed) 0 SEEN /hpf 0-5 [facility] Total proteinOrdered By: Silvano Hutton on 01-28-2025 Protein [Mass/Vol] 5.9 g/dL 5.9-8.4 [facility] Troponin T.cardiac [Mass/vol ume] in Serum or Plasma by High sensitivity methodOrdered By: Danny Hutton on 01-28-2025 Troponin T.cardiac High sensitivity method [Mass/Vol] 13 ng/L <22 [facility] Urinalysis, Completeon 01-28 BACTERIA 1+ /hpf Normal None Seen [facility] Comment on above: Order Comment: COLOR OF URINE MAY AFFECT DIPSTICK RESULTS.CURRICULUM DEVELOPMENT MANAGER TO SPECIFY Performed By: #### L 400.0001 ####[facility] [address] [place], [address] RBC > 100 SEEN Normal 0-5 [facility] Comment on above: Order Comment: COLOR OF URINE MAY AFFECT DIPSTICK RESULTS.CURRICULUM DEVELOPMENT MANAGER TO SPECIFY Performed By: #### L 400.0001 ####[facility] [address] [place], [address] WBC 10-25 SEEN Normal 0-5 [facility] Comment on above: Order Comment: COLOR OF URINE MAY AFFECT DIPSTICK RESULTS.CURRICULUM DEVELOPMENT MANAGER TO SPECIFY Performed By: #### L 400.0001 ####[facility] [address] [place], [address] EPI,SQUAMOUS 0 SEEN Normal 0-5 [facility] Comment on above: Order Comment: COLOR OF URINE MAY AFFECT DIPSTICK RESULTS.CURRICULUM DEVELOPMENT MANAGER TO SPECIFY Performed By: #### L 400.0001 ####[facility] [address] [place], [place], [id number] Mucus Ql (Urine sed) 0 SEEN Normal [facility] Comment on above: Order Comment: COLOR OF URINE MAY AFFECT DIPSTICK RESULTS.CURRICULUM DEVELOPMENT MANAGER TO SPECIFY Performed By: #### L 400.0001 ####[facility] [address] [place], [address] Urine clarityOrdered By: Silvano Hutton on 01-28-2025 Clarity (U) Cloudy Clear [facility] Urine color determinationOrd ered By: Danny Hutton on 01-28-2025 Color (U) Lexis Yellow [facility] Urine cultureOrdered By: Silvano Hutton on 01-28-2025 Bacteria identified Cx Nom (U) Vancomycin Resist. E. faecalis Abnormal [facility] Bacteria identified Cx Nom (U) GNR lactose obgyn specialist Abnormal [facility] Urine glucose detectionOrder ed By: Danny Hutton on 01-28-2025 Glucose Ql (U) Normal mg/dl Normal [facility] Urine leukocyte esterase det ection by dipstickOrdered By: Danny Hutton on 01-28-2025 Leukocyte esterase Test strip Ql (U) 500 /ul High Negative [facility] Urine pHOrdered By: Danny Santiago on 01-28-2025 pH (U) 8.0 [pH] 5.0 - 8.0 [facility] Urine sediment bacteria coun t by microscopy (number/high power field)Ordered By: Danny Hutton on 01-28-2025 Bacteria LM.HPF (Urine sed) [#/Area] 1 /[HPF] None Seen [facility] Urine specific gravity measu rementOrdered By: Danny Hutton on 01-28-2025 Specific gravity (U) [Rel density] 1.015 1.002-1.030 [facility] Urine urobilinogen measureme ntOrdered By: Danny Hutton on 01-28-2025 Urobilinogen Ql (U) Normal mg/dl Normal [facility] Venous blood ammonia measure mentOrdered By: Danny Hutton on 01-28-2025 Ammonia (P) [Moles/Vol] 108.0 umol/L High 16-60 [facility] White blood cell (WBC) count Ordered By: Danny Hutton on 01-28-2025 WBC (Bld) [#/Vol] 5.2 10*3/uL 4.4-11.0 [facility] White blood cell countOrdere d By: Danny Hutton on 01-28-2025 White blood cell count 10-25 SEEN /hpf 0-5 [facility] Body Fluid Cell Count+Diffon 01-25-2025 MESOTHELIAL 7 Normal [facility] Comment on above: Order Comment: The r eference range and other method performancespecifications have not been established for this bodyfluid. The test must be integrated into the clinicalcontext for interpretation. Result Comment: AMENDED REPORT 01/25/25 1125 OTHER CELL/BF previously reported as: 7 % Performed By: #### L 200.0200, L350.1000, M100.2900, M100.4001, M100.2000 ####[facility] [address] [place], [address] Culture, Anaerobic Any Sourc iliana 01-24-2025 CUAN No growth in 5 days. Normal [facility] Comment on above: Performed By: #### L 200.0200, L350.1000, M100.2900, M100.4001, M100.2000 ####[facility] [address] [place], [address] Anion gap in Serum or Plasma Ordered By: Anurag Irene on 01-21-2025 Anion gap [Moles/Vol] 7 mmol/L 5-15 [facility] BUN/creatinine ratioOrdered By: Anurag Irene on 01-21-2025 Urea nitrogen/Creatinine [Mass ratio] 15.6 mg/mg 10-20 [facility] Bedside Glucoseon 01-21-2025 FINGERSTICK GLU 151 mg/dL High 74-106 [facility] Comment on above: Result Comment: BRISA GEMENT OF PATIENT CARE PER NURSING PROTOCOL Performed By: #### L 501.080 ####[facility] [address] [place], [address] FINGERSTICK GLU 199 mg/dL High 74-106 [facility] Comment on above: Result Comment: BRISA GEMENT OF PATIENT CARE PER NURSING PROTOCOL Performed By: #### L 501.080 ####[facility] [address] [place], [address] Bilirubin, totalOrdered By: Anurag Irene on 01-21-2025 Bilirubin [Mass/Vol] 1.52 mg/dL High 0.00-1.30 [facility] Carbon dioxide, total [Moles /volume] in Central venous bloodOrdered By: Anurag Irene on 01-21-2025 CO2 [Moles/Vol] 29.7 mmol/L 21.0-32.0 [facility] Chloride assayOrdered By: Francois Irene on 01-21-2025 Chloride [Moles/Vol] 96 mmol/L Low 98-108 [facility] Comprehensive Metabolic Prof ilon 01-21-2025 Albumin [Mass/Vol] 2.1 g/dL Low 3.5-5.0 [facility] Comment on above: Performed By: #### L 500.4050 ####[facility] [address] [place], [address] Albumin/Globulin [Mass ratio] 0.8 {ratio} Low 0.9-2.4 [facility] Comment on above: Performed By: #### L 500.4050 ####[facility] [address] [place], [address] ALK PHOS 204 U/L High 40-129 [facility] Comment on above: Performed By: #### L 500.4050 ####[facility] [address] [place], [address] ALT [Catalytic activity/Vol] 28 U/L Normal <=46 [facility] Comment on above: Performed By: #### L 500.4050 ####[facility] [address] [place], [address] AST [Catalytic activity/Vol] 48 U/L High <=37 [facility] Comment on above: Performed By: #### L 500.4050 ####[facility] [address] [place], [address] Bilirubin [Mass/Vol] 1.52 mg/dL High 0.00-1.30 [facility] Comment on above: Performed By: #### L 500.4050 ####[facility] [address] [place], [address] BUN/CRE 15.6 RATIO Normal 10-20 [facility] Comment on above: Performed By: #### L 500.4050 ####[facility] [address] [place], [address] Calcium [Mass/Vol] 8.1 mg/dL Normal 7.6-11.0 [facility] Comment on above: Performed By: #### L 500.4050 ####[facility] [address] [place], [address] Chloride [Moles/Vol] 96 mmol/L Low 98-108 [facility] Comment on above: Performed By: #### L 500.4050 ####[facility] [address] [place], [address] CO2 [Moles/Vol] 29.7 mmol/L Normal 21.0-32.0 [facility] Comment on above: Performed By: #### L 500.4050 ####[facility] [address] [place], [address] Creatinine [Mass/Vol] 0.86 mg/dL Normal 0.70-1.20 [facility] Comment on above: Performed By: #### L 500.4050 ####[facility] [address] [place], [address] ECRCL 114.50 ml/min Normal 50-250 [facility] Comment on above: Performed By: #### L 500.4050 ####[facility] [address] [place], [address] GAP 7 Normal 5-15 [facility] Comment on above: Performed By: #### L 500.4050 ####[facility] [address] [place], [address] GFR/1.73 sq M.predicted among non-blacks MDRD (S/P/Bld) [Vol rate/Area] 100 mL/min/{1.73_m2} Normal >60 [facility] Comment on above: Result Comment: mL/m in/1.73m2 CKD-EPI Creatinine Equation (2020) Performed By: #### L 500.4050 ####[facility] [address] [place], [address] Globulin (S) [Mass/Vol] 2.6 g/dL Normal 2.2-4.2 [facility] Comment on above: Performed By: #### L 500.4050 ####[facility] [address] [place], [address] Glucose [Mass/Vol] 199 mg/dL High 70-99 [facility] Comment on above: Performed By: #### L 500.4050 ####[facility] [address] [place], [address] Potassium [Moles/Vol] 3.1 mmol/L Low 3.3-5.1 [facility] Comment on above: Performed By: #### L 500.4050 ####[facility] [address] [place], [place], [address] Sodium [Moles/Vol] 133 mmol/L Normal 133-145 [facility] Comment on above: Performed By: #### L 500.4050 ####[facility] [address] [place], [address] T PROT 4.7 g/dL Low 5.9-8.4 [facility] Comment on above: Performed By: #### L 500.4050 ####[facility] [address] [place], [place], [phone] Urea nitrogen [Mass/Vol] 13 mg/dL Normal 4-19 [facility] Comment on above: Performed By: #### L 500.4050 ####[facility] [address] [place], [place], [id number] Glomerular filtration rate ( GFR) estimation/1.73 sq m using serum, plasma, or whole bOrdered By: Anurag Irene on 01-21-2025 GFR/1.73 sq M.predicted among non-blacks MDRD (S/P/Bld) [Vol rate/Area] 100 mL/min/{1.73_m2} >60 [facility] deOrdered By: Anurag Irene on 01-21-2025 Glucose [Mass/Vol] 151 mg/dL High 74-106 [facility] No Panel InformationOrdered By: Anurag Irene on 01-21-2025 48 U/L High <38 [facility] Potassium measurement (mass/ volume)Ordered By: Anurag Irene on 01-21-2025 Potassium (Unsp spec) [Mass/Vol] 3.1 mmol/L Low 3.3-5.1 [facility] Serum creatinine measurement (mass/volume)Ordered By: Anurag Irene on 01-21-2025 Creatinine [Mass/Vol] 0.86 mg/dL 0.70-1.20 [facility] Serum globulin measurementOr dered By: Anurag Irene on 01-21-2025 Globulin (S) [Mass/Vol] 2.6 g/dL 2.2-4.2 [facility] Serum glucose measurement (m ass/volume)Ordered By: Anurag Irene on 01-21-2025 Glucose [Mass/Vol] 199 mg/dL High 70-99 [facility] Serum or plasma alanine thomas otransferase (ALT) measurementOrdered By: Anurag Irene on 01-21-2025 ALT [Catalytic activity/Vol] 28 U/L <47 [facility] Serum or plasma albumin roosevelt urement (mass/volume)Ordered By: Anurag Irene on 01-21-2025 Albumin [Mass/Vol] 2.1 g/dL Low 3.5-5.0 [facility] Serum or plasma albumin/glob ulin mass ratioOrdered By: Anurag Irene on 01-21-2025 Albumin/Globulin [Mass ratio] 0.8 {ratio} Low 0.9-2.4 [facility] Serum or plasma alkaline kendrick sphatase measurementOrdered By: Anurag Irene on 01-21-2025 ALP [Catalytic activity/Vol] 204 U/L High 40-129 [facility] Serum or plasma calcium roosevelt urement (mass/volume)Ordered By: Anurag Irene on 01-21-2025 Calcium [Mass/Vol] 8.1 mg/dL 7.6-11.0 [facility] Serum or plasma urea nitroge n measurement (mass/volume)Ordered By: Anurag Irene on 01-21-2025 Urea nitrogen [Mass/Vol] 13 mg/dL 4-19 [facility] Sodium levelOrdered By: Marni Irene on 01-21-2025 Sodium [Moles/Vol] 133 mmol/L 133-145 [facility] Total proteinOrdered By: [place] Irene on 01-21-2025 Protein [Mass/Vol] 4.7 g/dL Low 5.9-8.4 [facility] Absolute lymphocyte countOrd ered By: Anurag Irene on 01-20-2025 Lymphocytes Auto (Unsp spec) [#/Vol] 1.10 10*3/uL 0.83-4.51 [facility] Automated lymphocyte count a s percentage of total leukocytesOrdered By: Anurag Irene on 01-20-2025 Lymphocytes/100 WBC Auto (Unsp spec) 16.3 % Low 19-41 [facility] Basophil percentageOrdered B y: Anurag Irene on 01-20-2025 Basophils/100 WBC (Bld) 0.6 % 0-1 [facility] Bedside Glucoseon 01-20-2025 FINGERSTICK GLU 206 mg/dL High 74-106 [facility] Comment on above: Result Comment: BRISA GEMENT OF PATIENT CARE PER NURSING PROTOCOL Performed By: #### L 501.080 ####[facility] [address] [place], [address] FINGERSTICK GLU 188 mg/dL High [facility]106 [facility] Comment on above: Result Comment: BRISA GEMENT OF PATIENT CARE PER NURSING PROTOCOL Performed By: #### L 501.080 ####[facility] [address] [place], [address] FINGERSTICK GLU 167 mg/dL High [facility]106 [facility] Comment on above: Result Comment: BRISA GEMENT OF PATIENT CARE PER NURSING PROTOCOL Performed By: #### L 501.080 ####[facility] [address] [place], [address] FINGERSTICK GLU 164 mg/dL High [address] [place] [address] Comment on above: Result Comment: BRISA GEMENT OF PATIENT CARE PER NURSING PROTOCOL Performed By: #### L 501.080 ####[facility] [address] [place], [address] Blood manual differential co mment interpretation (narrative result)Ordered By: Anurag Irene on 01-20-2025 Manual differential comment Marco Antonio (Bld) [Interp] SCANNED [facility] CBC W/Diff, Automatedon 01-02 PLT EST MOD DEC Normal ADEQ [facility] Comment on above: Performed By: #### L 100.0100 ####[facility] [address] [place], [address] SMEAR COMMENT SCANNED Normal [facility] Comment on above: Performed By: #### L 100.0100 ####[facility] [address] [place], [address] Comprehensive Metabolic Prof ilon 01-20-2025 Albumin [Mass/Vol] 2.0 g/dL Low 3.5-5.0 [facility] Comment on above: Performed By: #### L 500.4050 ####[facility] [address] [place], [address] Albumin/Globulin [Mass ratio] 0.7 {ratio} Low 0.9-2.4 [facility] Comment on above: Performed By: #### L 500.4050 ####[facility] [address] [place], [address] ALK PHOS 211 U/L High 40-129 [facility] Comment on above: Performed By: #### L 500.4050 ####[facility] [address] [place], [address] ALT [Catalytic activity/Vol] 32 U/L Normal <=46 [facility] Comment on above: Performed By: #### L 500.4050 ####[facility] [address] [place], [address] AST [Catalytic activity/Vol] 45 U/L High <=37 [facility] Comment on above: Performed By: #### L 500.4050 ####[facility] [address] [place], [address] Bilirubin [Mass/Vol] 1.61 mg/dL High 0.00-1.30 [facility] Comment on above: Performed By: #### L 500.4050 ####[facility] [address] [place], [address] BUN/CRE 13.4 RATIO Normal 10-20 [facility] Comment on above: Performed By: #### L 500.4050 ####[facility] [address] [place], [address] Calcium [Mass/Vol] 8.1 mg/dL Normal 7.6-11.0 [facility] Comment on above: Performed By: #### L 500.4050 ####[facility] [address] [place], [address] Chloride [Moles/Vol] 95 mmol/L Low 98-108 [facility] Comment on above: Performed By: #### L 500.4050 ####[facility] [address] [place], [address] CO2 [Moles/Vol] 30.3 mmol/L Normal 21.0-32.0 [facility] Comment on above: Performed By: #### L 500.4050 ####[facility] [address] [place], [address] Creatinine [Mass/Vol] 0.87 mg/dL Normal 0.70-1.20 [facility] Comment on above: Performed By: #### L 500.4050 ####[facility] [address] [place], [address] ECRCL 112.61 ml/min Normal 50-250 [facility] Comment on above: Performed By: #### L 500.4050 ####[facility] [address] [place], [address] GAP 7 Normal 5-15 [facility] Comment on above: Performed By: #### L 500.4050 ####[facility] [address] [place], [address] GFR/1.73 sq M.predicted among non-blacks MDRD (S/P/Bld) [Vol rate/Area] 100 mL/min/{1.73_m2} Normal >60 [facility] Comment on above: Result Comment: mL/m in/1.73m2 CKD-EPI Creatinine Equation (2020) Performed By: #### L 500.4050 ####[facility] [address] [place], [address] Globulin (S) [Mass/Vol] 2.9 g/dL Normal 2.2-4.2 [facility] Comment on above: Performed By: #### L 500.4050 ####[facility] [address] [place], [address] Glucose [Mass/Vol] 195 mg/dL High 70-99 [facility] Comment on above: Performed By: #### L 500.4050 ####[facility] [address] [place], [address] Potassium [Moles/Vol] 3.1 mmol/L Low 3.3-5.1 [facility] Comment on above: Performed By: #### L 500.4050 ####[facility] [address] [place], [address] Sodium [Moles/Vol] 133 mmol/L Normal 133-145 [facility] Comment on above: Performed By: #### L 500.4050 ####[facility] [address] [place], [address] T PROT 4.9 g/dL Low 5.9-8.4 [facility] Comment on above: Performed By: #### L 500.4050 ####[facility] [address] [place], [address] Urea nitrogen [Mass/Vol] 12 mg/dL Normal 4-19 [facility] Comment on above: Performed By: #### L 500.4050 ####[facility] [address] [place], [address] Eosinophil percentageOrdered By: Anurag Irene on 01-20-2025 Eosinophils/100 WBC (Bld) 6.5 % High 0-5 [facility] [facility] Erythrocyte distribution wid th ratioOrdered By: Anurag Irene on 01-20-2025 Erythrocyte distribution width (RBC) [Ratio] 18.3 % High 11.6-14.6 [facility] Erythrocyte distribution wid th standard deviationOrdered By: Anurag Irene on 01-20-2025 Erythrocyte distribution width (RBC) [Ratio] 58.5 fl High 35.1-43.9 [facility] Hematocrit Auto (Bld) [Volum e fraction]Ordered By: Anurag Irene on 01-20-2025 Hematocrit (Bld) [Volume fraction] 22.9 % Low 40-54 [facility] Hemoglobin measurementOrdere d By: Anurag Irene on 01-20-2025 Hemoglobin (Bld) [Mass/Vol] 7.7 g/dL Low 13.0-16.5 [facility] Immature granulocytes/100 WB C Auto (Bld)Ordered By: Anurag Irene on 01-20-2025 Immature granulocytes/100 WBC (Bld) 1.200 % High 0.0-0.9 [facility] MCV (mean corpuscular volume ) determinationOrdered By: Anurag Irene on 01-20-2025 MCV (RBC) [Entitic vol] 88.1 fL 80-94 [facility] Mean corpuscular hemoglobin (MCH) determinationOrdered By: Anurag Irene on 01-20-2025 MCH (RBC) [Entitic mass] 29.6 pg 27.0-32.0 [facility] Monocyte percentageOrdered B y: Anurag Irene on 01-20-2025 Monocytes/100 WBC (Bld) 11.9 % High 0-10 [facility] Neutrophil percentageOrdered By: Anurag Irene on 01-20-2025 Neutrophils/100 WBC (Bld) 63.5 % 47-70 [facility] Platelet countOrdered By: Francois Irene on 01-20-2025 Platelets (Bld) [#/Vol] 93 10*3/uL Low 150-450 [facility] Platelet estimateOrdered By: Anurag Irene on 01-20-2025 Platelets LM Ql (Bld) [facility] RBC Auto (Bld) [#/Vol]Ordere d By: Anurag Irene on 01-20-2025 RBC (Bld) [#/Vol] 2.60 10*6/uL Low 4.6-6.2 [facility] White blood cell (WBC) count Ordered By: Anurag Irene on 01-20-2025 WBC (Bld) [#/Vol] 6.8 10*3/uL 4.4-11.0 [facility] Activated partial thrombopla stin time (aPTT) in platelet poor plasma by coagulation aOrdered By: Rosendo Renee on 01-19-2025 aPTT Coag (PPP) [Time] 46.6 s High 24.1-36.2 [facility] Albumin, Serumon 01-19-2025 Albumin [Mass/Vol] 2.2 g/dL Low 3.5-5.0 [facility] Comment on above: Performed By: #### L 501.1800, L501.2300, L300.4310, L300.3900, L501.5200 ####[facility] [address] [place], [address] Bedside Glucoseon 01-19-2025 FINGERSTICK GLU 225 mg/dL High [address] [facility] Comment on above: Result Comment: BRISA GEMENT OF PATIENT CARE PER NURSING PROTOCOL Performed By: #### L 501.080 ####[facility] [address] [place], [address] FINGERSTICK GLU 268 mg/dL High [address] [place] [address] Comment on above: Result Comment: BRISA GEMENT OF PATIENT CARE PER NURSING PROTOCOL Performed By: #### L 501.080 ####[facility] [address] [place], [address] FINGERSTICK GLU 187 mg/dL High [address] [place] [address] Comment on above: Result Comment: BRISA GEMENT OF PATIENT CARE PER NURSING PROTOCOL Performed By: #### L 501.080 ####[facility] [address] [place], [address] FINGERSTICK GLU 198 mg/dL High [facility]106 [facility] Comment on above: Result Comment: BRISA MOROCHO OF PATIENT CARE PER NURSING PROTOCOL Performed By: #### L 501.080 ####[facility] [address] [place], [address] Bilirubin directOrdered By: Anurag Irene on 01-19-2025 Bilirubin.direct [Mass/Vol] 1.00 mg/dL High 0.00-0.30 [facility] Bilirubin, Directon 01-20-20 25 Bilirubin.direct [Mass/Vol] 1.00 mg/dL High 0.00-0.30 [facility] Comment on above: Performed By: #### L 501.4700, L100.0100, L500.4050 ####[facility] [address] [place], [address] Body Fluid Culton 01-19-2025 BFC Culture exhibits no growth. Normal [facility] Comment on above: Performed By: #### L 200.0200, L350.1000, M100.2900, M100.4001, M100.2000 ####[facility] [address] [place], [address] CBC W/Diff, Automatedon 01-02 Absolute Lymph 1.08 X10 3/uL Normal 0.83-4.51 [facility] Comment on above: Performed By: #### L 501.4700, L100.0100, L500.4050 ####[facility] [address] [place], [address] Absolute Neut 5.4 X10 3/uL Normal 2.0-7.7 [facility] Comment on above: Performed By: #### L 501.4700, L100.0100, L500.4050 ####[facility] [address] [place], [address] Basophils/100 WBC (Bld) 0.5 % Normal 0-1 [facility] Comment on above: Performed By: #### L 501.4700, L100.0100, L500.4050 ####[facility] [address] [place], [address] Eosinophils/100 WBC (Bld) 5.8 % High 0-5 [facility] Comment on above: Performed By: #### L 501.4700, L100.0100, L500.4050 ####[facility] [address] [place], [address] Erythrocyte distribution width (RBC) [Ratio] 18.6 % High 11.6-14.6 [facility] Comment on above: Performed By: #### L 501.4700, L100.0100, L500.4050 ####[facility] [address] [place], [address] Hematocrit (Bld) [Volume fraction] 22.3 % Low 40-54 [facility] Comment on above: Performed By: #### L 501.4700, L100.0100, L500.4050 ####[facility] [address] [place], [address] Hemoglobin (Bld) [Mass/Vol] 7.6 g/dL Low 13.0-16.5 [facility] Comment on above: Performed By: #### L 501.4700, L100.0100, L500.4050 ####[facility] [address] [place], [address] IG% 1.400 High 0.0-0.9 [facility] Comment on above: Result Comment: IG% - Immature Granulocytes (promyelocytes, myelocytes andmetamyelocytes) > 1% indicates that a LEFT SHIFT is Present. Performed By: #### L 501.4700, L100.0100, L500.4050 ####[facility] [address] [place], [address] Lymphocytes/100 WBC (Bld) 13.6 % Low 19-41 [facility] Comment on above: Performed By: #### L 501.4700, L100.0100, L500.4050 ####[facility] [address] [place], [address] MCH (RBC) [Entitic mass] 30.3 pg Normal 27.0-32.0 [facility] Comment on above: Performed By: #### L 501.4700, L100.0100, L500.4050 ####[facility] [address] [place], [address] MCHC (RBC) [Mass/Vol] 34.1 g/dL Normal 32-36 [facility] Comment on above: Performed By: #### L 501.4700, L100.0100, L500.4050 ####[facility] [address] [place], [address] MCV (RBC) [Entitic vol] 88.8 fL Normal 80-94 [facility] Comment on above: Performed By: #### L 501.4700, L100.0100, L500.4050 ####[facility] [address] [place], [address] Monocytes/100 WBC (Bld) 11.0 % High 0-10 [facility] Comment on above: Performed By: #### L 501.4700, L100.0100, L500.4050 ####[facility] [address] [place], [address] Neutrophils/100 WBC (Bld) 67.7 % Normal 47-70 [facility] Comment on above: Performed By: #### L 501.4700, L100.0100, L500.4050 ####[facility] [address] [place], [address] Nucleated RBC (Bld) [#/Vol] 0 10*3/uL Normal 0-5 [facility] Comment on above: Performed By: #### L 501.4700, L100.0100, L500.4050 ####[facility] [address] [place], [address] Platelet mean volume (Bld) [Entitic vol] 11.1 fL Normal 6.2-12.0 [facility] Comment on above: Performed By: #### L 501.4700, L100.0100, L500.4050 ####[facility] [address] [place], [address] Platelets (Bld) [#/Vol] 107 10*3/uL Low 150-450 [facility] Comment on above: Performed By: #### L 501.4700, L100.0100, L500.4050 ####[facility] [address] [place], [address] RBC (Bld) [#/Vol] 2.51 10*6/uL Low 4.6-6.2 [facility] Comment on above: Performed By: #### L 501.4700, L100.0100, L500.4050 ####[facility] [address] [place], [address] RDW SD 59.0 fl High 35.1-43.9 [facility] Comment on above: Performed By: #### L 501.4700, L100.0100, L500.4050 ####[facility] [address] [place], [address] WBC (Bld) [#/Vol] 7.9 10*3/uL Normal 4.4-11.0 [facility] Comment on above: Performed By: #### L 501.4700, L100.0100, L500.4050 ####[facility] [address] [place], [address] Comprehensive Metabolic [facility] 01-19-2025 Albumin [Mass/Vol] 2.2 g/dL Low 3.5-5.0 [facility] Comment on above: Performed By: #### L 501.4700, L100.0100, L500.4050 ####[facility] [address] [place], [address] Albumin/Globulin [Mass ratio] 0.9 {ratio} Normal 0.9-2.4 [facility] Comment on above: Performed By: #### L 501.4700, L100.0100, L500.4050 ####[facility] [address] [place], [address] ALK PHOS 225 U/L High 40-129 [facility] Comment on above: Performed By: #### L 501.4700, L100.0100, L500.4050 ####[facility] [address] [place], [address] ALT [Catalytic activity/Vol] 34 U/L Normal <=46 [facility] Comment on above: Performed By: #### L 501.4700, L100.0100, L500.4050 ####[facility] [address] [place], [address] AST [Catalytic activity/Vol] 52 U/L High <=37 [facility] Comment on above: Performed By: #### L 501.4700, L100.0100, L500.4050 ####[facility] [address] [place], [address] Bilirubin [Mass/Vol] 1.70 mg/dL High 0.00-1.30 [facility] Comment on above: Performed By: #### L 501.4700, L100.0100, L500.4050 ####[facility] [address] [place], [address] BUN/CRE 10.4 RATIO Normal 10-20 [facility] Comment on above: Performed By: #### L 501.4700, L100.0100, L500.4050 ####[facility] [address] [place], [address] Calcium [Mass/Vol] 7.9 mg/dL Normal 7.6-11.0 [facility] Comment on above: Performed By: #### L 501.4700, L100.0100, L500.4050 ####[facility] [address] [place], [address] Chloride [Moles/Vol] 94 mmol/L Low 98-108 [facility] Comment on above: Performed By: #### L 501.4700, L100.0100, L500.4050 ####[facility] [address] [place], [address] CO2 [Moles/Vol] 30.7 mmol/L Normal 21.0-32.0 [facility] Comment on above: Performed By: #### L 501.4700, L100.0100, L500.4050 ####[facility] [address] [place], [address] Creatinine [Mass/Vol] 1.05 mg/dL Normal 0.70-1.20 [facility] Comment on above: Performed By: #### L 501.4700, L100.0100, L500.4050 ####[facility] [address] [place], [address] ECRCL 93.35 ml/min Normal 50-250 [facility] Comment on above: Performed By: #### L 501.4700, L100.0100, L500.4050 ####[facility] [address] [place], [address] GAP 7 Normal 5-15 [facility] Comment on above: Performed By: #### L 501.4700, L100.0100, L500.4050 ####[facility] [address] [place], [address] GFR/1.73 sq M.predicted among non-blacks MDRD (S/P/Bld) [Vol rate/Area] 82 mL/min/{1.73_m2} Normal >60 [facility] Comment on above: Result Comment: mL/m in/1.73m2 CKD-EPI Creatinine Equation (2020) Performed By: #### L 501.4700, L100.0100, L500.4050 ####[facility] [address] [place], [address] Globulin (S) [Mass/Vol] 2.6 g/dL Normal 2.2-4.2 [facility] Comment on above: Performed By: #### L 501.4700, L100.0100, L500.4050 ####[facility] [address] [place], [address] Glucose [Mass/Vol] 220 mg/dL High 70-99 [facility] Comment on above: Performed By: #### L 501.4700, L100.0100, L500.4050 ####[facility] [address] [place], [address] Potassium [Moles/Vol] 3.0 mmol/L Low 3.3-5.1 [facility] Comment on above: Performed By: #### L 501.4700, L100.0100, L500.4050 ####[facility] [address] [place], [address] Sodium [Moles/Vol] 132 mmol/L Low 133-145 [facility] Comment on above: Performed By: #### L 501.4700, L100.0100, L500.4050 ####[facility] [address] [place], [address] T PROT 4.8 g/dL Low 5.9-8.4 [facility] Comment on above: Performed By: #### L 501.4700, L100.0100, L500.4050 ####[facility] [address] [place], [address] Urea nitrogen [Mass/Vol] 11 mg/dL Normal 4-19 [facility] Comment on above: Performed By: #### L 501.4700, L100.0100, L500.4050 ####[facility] [address] [place], [address] Gram Stainon 01-19-2025 GS Centrifuged Specimen ? Culture performed on centrifuged specimen Gram Stain No organisms seen No cells seen Normal [facility] Comment on above: Performed By: #### L 200.0200, L350.1000, M100.2900, M100.4001, M100.2000 ####[facility] [address] [place], [address] Liver Profileon 01-19-2025 ALB Normal 3.5-5.0 [facility] Comment on above: Result Comment: MOVE D TO DIFFERENT REQ- SEE C50 Performed By: #### L 500.3400 ####[facility] [address] [place], [address] ALK PHOS Normal 40-129 [facility] Comment on above: Result Comment: MOVE D TO DIFFERENT REQ- SEE C50 Performed By: #### L 500.3400 ####[facility] [address] [place], [address] ALT Normal <=46 [facility] Comment on above: Result Comment: MOVE D TO DIFFERENT REQ- SEE C50 Performed By: #### L 500.3400 ####[facility] [address] [place], [address] AST Normal <=37 [facility] Comment on above: Result Comment: MOVE D TO DIFFERENT REQ- SEE C50 Performed By: #### L 500.3400 ####[facility] [address] [place], [address] D BILI Normal 0.00-0.30 [facility] Comment on above: Result Comment: MOVE D TO DIFFERENT REQ- SEE C50 Performed By: #### L 500.3400 ####[facility] [address] [place], [address] T BILI Normal 0.00-1.30 [facility] Comment on above: Result Comment: MOVE D TO DIFFERENT REQ- SEE C50 Performed By: #### L 500.3400 ####[facility] [address] [place], [address] T PROT Normal 5.9-8.4 [facility] Comment on above: Result Comment: MOVE D TO DIFFERENT REQ- SEE C50 Performed By: #### L 500.3400 ####[facility] [address] [place], [address] Magnesiumon 01-19-2025 Magnesium [Mass/Vol] 1.7 mg/dL Normal 1.5-2.2 [facility] Comment on above: Performed By: #### L 501.1800, L501.2300, L300.4310, L300.3900, L501.5200 ####[facility] [address] [place], [address] Magnesium measurement (mass/ volume)Ordered By: Rosendo Renee on 01-19-2025 Magnesium (Unsp spec) [Mass/Vol] 1.7 mg/dL 1.5-2.2 [facility] Partial Thromboplast Timeon 01-19-2025 aPTT Coag (Bld) [Time] 46.6 s High 24.1-36.2 [facility] Comment on above: Performed By: #### L 501.1800, L501.2300, L300.4310, L300.3900, L501.5200 ####[facility] [address] [place], [address] Phosphoruson 01-19-2025 Phosphate [Mass/Vol] 3.5 mg/dL Normal 2.7-4.5 [facility] Comment on above: Performed By: #### L 501.1800, L501.2300, L300.4310, L300.3900, L501.5200 ####[facility] [address] [place], [address] Prothrombin Time w/INRon INR Coag (PPP) [Relative time] 2.0 {INR} Normal [facility] Comment on above: Performed By: #### L 501.1800, L501.2300, L300.4310, L300.3900, L501.5200 ####[facility] [address] [place], [address] PT Coag (PPP) [Time] 22.8 s High 11.7-14.9 [facility] Comment on above: Performed By: #### L 501.1800, L501.2300, L300.4310, L300.3900, L501.5200 ####[facility] [address] [place], [address] Prothrombin timeOrdered By: Rosendo Renee on 01-19-2025 PT Coag (PPP) [Time] 22.8 s High 11.7-14.9 [facility] Abdomen Limitedon 01-18-2025 Abdomen Limited Normal [facility] Anaerobic cultureOrdered By: Anurag Irene on 01-18-2025 Bacteria identified Anaer cx Nom (Unsp spec) No growth in 5 days. [facility] Basic Metabolic Profile (BMP )on 01-18-2025 BUN/CRE 9.8 RATIO Low 10-20 [facility] Comment on above: Performed By: #### L 500.2500 ####[facility] [address] [place], [address] Calcium [Mass/Vol] 7.7 mg/dL Normal 7.6-11.0 [facility] Comment on above: Performed By: #### L 500.2500 ####[facility] [address] [place], [address] Chloride [Moles/Vol] 92 mmol/L Low 98-108 [facility] Comment on above: Performed By: #### L 500.2500 ####[facility] [address] [place], [address] CO2 [Moles/Vol] 31.5 mmol/L Normal 21.0-32.0 [facility] Comment on above: Performed By: #### L 500.2500 ####[facility] [address] [place], [address] Creatinine [Mass/Vol] 0.85 mg/dL Normal 0.70-1.20 [facility] Comment on above: Performed By: #### L 500.2500 ####[facility] [address] [place], [address] ECRCL 116.49 ml/min Normal 50-250 [facility] Comment on above: Performed By: #### L 500.2500 ####[facility] [address] [place], [address] GAP 8 Normal 5-15 [facility] Comment on above: Performed By: #### L 500.2500 ####[facility] [address] [place], [address] GFR/1.73 sq M.predicted among non-blacks MDRD (S/P/Bld) [Vol rate/Area] 101 mL/min/{1.73_m2} Normal >60 [facility] Comment on above: Result Comment: mL/m in/1.73m2 CKD-EPI Creatinine Equation (2020) Performed By: #### L 500.2500 ####[facility] [address] [place], [address] Glucose [Mass/Vol] 228 mg/dL High 70-99 [facility] Comment on above: Performed By: #### L 500.2500 ####[facility] [address] [place], [address] Potassium [Moles/Vol] 2.8 mmol/L Low 3.3-5.1 [facility] Comment on above: Performed By: #### L 500.2500 ####[facility] [address] [place], [address] Sodium [Moles/Vol] 132 mmol/L Low 133-145 [facility] Comment on above: Performed By: #### L 500.2500 ####[facility] [address] [place], [address] Urea nitrogen [Mass/Vol] 8 mg/dL Normal 4-19 [facility] Comment on above: Performed By: #### L 500.2500 ####[facility] [address] [place], [address] Bedside Glucoseon 01-18-2025 FINGERSTICK GLU 250 mg/dL High 74-106 [facility] Comment on above: Result Comment: BRISA GEMENT OF PATIENT CARE PER NURSING PROTOCOL Performed By: #### L 501.080 ####[facility] [address] [place], [address] FINGERSTICK GLU 158 mg/dL High 74-106 [facility] Comment on above: Result Comment: BRISA GEMENT OF PATIENT CARE PER NURSING PROTOCOL Performed By: #### L 501.080 ####[facility] [address] [place], [address] FINGERSTICK GLU 142 mg/dL High 74-106 [facility] Comment on above: Result Comment: BRISA GEMENT OF PATIENT CARE PER NURSING PROTOCOL Performed By: #### L 501.080 ####[facility] [address] [place], [place], [address] FINGERSTICK GLU 171 mg/dL High 74-106 [facility] Comment on above: Result Comment: BRISA MOROCHO OF PATIENT CARE PER NURSING PROTOCOL Performed By: #### L 501.080 ####[facility] [address] [place], [place], [address] Body fluid appearance (nomin al result)Ordered By: Anurag Irene on 01-18-2025 Appearance (Body fld) CLEAR [facility] Body fluid color determinati onOrdered By: Anurag Irene on 01-18-2025 Color (Body fld) LT YEL [facility] Body fluid cultureOrdered By : Anurag Irene on 01-18-2025 Microbial culture, body fluid Culture exhibits no growth. [facility] Body fluid leukocytes count (number/volume)Ordered By: Anurag Irene on 01-18-2025 WBC (Body fld) [#/Vol] 0.143 10*3/uL [facility] Body fluid lymphocytes/100 l eukocytesOrdered By: Anurag Irene on 01-18-2025 Lymphocytes/100 WBC (Body fld) 24 % [facility] Body fluid macrophage countO rdered By: Anurag Irene on 01-18-2025 Macrophages (Body fld) [#/Vol] 46 % [facility] Body fluid mesothelial cell percentageOrdered By: Anurag Irene on 01-18-2025 Mesothelial cells/100 WBC (Body fld) 7 % [facility] Body fluid mononuclear cell percentageOrdered By: Anurag Irene on 01-18-2025 Mononuclear cells/100 WBC (Body fld) 75.6 % [facility] Body fluid other cell count as percentage of leukocytesOrdered By: Anurag Irene on 01-18-2025 Other cells/100 WBC (Body fld) 7 % [facility] Other cells/100 WBC (Body fld) HEADER UP [facility] Body fluid protein measureme nt (mass/volume)Ordered By: Anurag Irene on 01-18-2025 Protein (Body fld) [Mass/Vol] 0.3 g/dL Not Establ. [facility] Body fluid segmented neutrop hils count (number/volume)Ordered By: Anurag Irene on 01-18-2025 Segmented neutrophils (Body fld) [#/Vol] 20 % [facility] Body fluid total cell countO rdered By: Anurag Irene on 01-18-2025 Cells Counted Total (Body fld) [#] 0.172 10^3/ul [facility] CBC W/Diff, Automatedon 01-02 Absolute Lymph 1.13 X10 3/uL Normal 0.83-4.51 [facility] Comment on above: Performed By: #### L 100.0100 ####[facility] [address] [place], [address] Absolute Neut 5.5 X10 3/uL Normal 2.0-7.7 [facility] Comment on above: Performed By: #### L 100.0100 ####[facility] [address] [place], [address] Basophils/100 WBC (Bld) 0.6 % Normal 0-1 [facility] Comment on above: Performed By: #### L 100.0100 ####[facility] [address] [place], [address] Eosinophils/100 WBC (Bld) 6.1 % High 0-5 [facility] Comment on above: Performed By: #### L 100.0100 ####[facility] [address] [place], [address] Erythrocyte distribution width (RBC) [Ratio] 18.7 % High 11.6-14.6 [facility] Comment on above: Performed By: #### L 100.0100 ####[facility] [address] [place], [address] Hematocrit (Bld) [Volume fraction] 22.6 % Low 40-54 [facility] Comment on above: Performed By: #### L 100.0100 ####[facility] [address] [place], [address] Hemoglobin (Bld) [Mass/Vol] 7.7 g/dL Low 13.0-16.5 [facility] Comment on above: Performed By: #### L 100.0100 ####[facility] [address] [place], [address] IG% 1.200 High 0.0-0.9 [facility] Comment on above: Result Comment: IG% - Immature Granulocytes (promyelocytes, myelocytes andmetamyelocytes) > 1% indicates that a LEFT SHIFT is Present. Performed By: #### L 100.0100 ####[facility] [address] [place], [address] Lymphocytes/100 WBC (Bld) 14.0 % Low 19-41 [facility] Comment on above: Performed By: #### L 100.0100 ####[facility] [address] [place], [address] MCH (RBC) [Entitic mass] 30.1 pg Normal 27.0-32.0 [facility] Comment on above: Performed By: #### L 100.0100 ####[facility] [address] [place], [address] MCHC (RBC) [Mass/Vol] 34.1 g/dL Normal 32-36 [facility] Comment on above: Performed By: #### L 100.0100 ####[facility] [address] [place], [address] MCV (RBC) [Entitic vol] 88.3 fL Normal 80-94 [facility] Comment on above: Performed By: #### L 100.0100 ####[facility] [address] [place], [address] Monocytes/100 WBC (Bld) 10.0 % Normal 0-10 [facility] Comment on above: Performed By: #### L 100.0100 ####[facility] [address] [place], [address] Neutrophils/100 WBC (Bld) 68.1 % Normal 47-70 [facility] Comment on above: Performed By: #### L 100.0100 ####[facility] [address] [place], [address] Nucleated RBC (Bld) [#/Vol] 0 10*3/uL Normal 0-5 [facility] Comment on above: Performed By: #### L 100.0100 ####[facility] [address] [place], [address] Platelet mean volume (Bld) [Entitic vol] 10.5 fL Normal 6.2-12.0 [facility] Comment on above: Performed By: #### L 100.0100 ####[facility] [address] [place], [address] Platelets (Bld) [#/Vol] 107 10*3/uL Low 150-450 [facility] Comment on above: Performed By: #### L 100.0100 ####[facility] [address] [place], [address] RBC (Bld) [#/Vol] 2.56 10*6/uL Low 4.6-6.2 [facility] Comment on above: Performed By: #### L 100.0100 ####[facility] [address] [place], [address] RDW SD 58.9 fl High 35.1-43.9 [facility] Comment on above: Performed By: #### L 100.0100 ####[facility] [address] [place], [address] WBC (Bld) [#/Vol] 8.1 10*3/uL Normal 4.4-11.0 [facility] Comment on above: Performed By: #### L 100.0100 ####[facility] [address] [place], [address] Cytology report of Body flui d Cyto stainOrdered By: Anurag Irene on 01-18-2025 Cytology report Cyto stain Doc (Body fld) SEE PATHOLOGY REPORT [facility] Cytology, Body Fluid / CSFon 01-18-2025 CYTOLOGY,BF/CSF SEE PATHOLOGY REPORT Normal [facility] Comment on above: Result Comment: Spec imen submitted to Anatomical Pathology Department fortesting. Performed By: #### L 200.0200, L350.1000, M100.2900, M100.4001, M100.2000 ####[facility] [address] [place], [address] Glucose, Body Fluidon 2024 GLUC, BODY FLD 154 mg/dL Normal Not Establ. [facility] Comment on above: Performed By: #### L 503.0100, L503.0300 ####[facility] [address] [place], [address] Gram stainOrdered By: Anuradha Irene on 01-18-2025 Microscopic observation Gram stain Nom (Unsp spec) [facility] Magnesiumon 01-18-2025 Magnesium [Mass/Vol] 1.6 mg/dL Normal 1.5-2.2 [facility] Comment on above: Performed By: #### L 501.2300, L501.5200 ####[facility] [address] [place], [address] Monocyte detectionOrdered By : Anurag Irene on 01-18-2025 Monocytes/100 WBC (Bld) 3 % [facility] No Panel InformationOrdered By: Anurag Irene on 01-18-2025 218 /mm3 [facility] SEE COMMENT [facility] Paracentesis with USon 01-18 Paracentesis with US Normal [facility] Pathologist interpretation o f Body fluid testsOrdered By: Anurag Irene on 01-18-2025 Pathologist interpretation (Body fld) [Interp] Reviewed [facility] Phosphoruson 01-18-2025 Phosphate [Mass/Vol] 3.7 mg/dL Normal 2.7-4.5 [facility] Comment on above: Performed By: #### L 501.2300, L501.5200 ####[facility] [address] [place], [address] Protein, Body Fluidon 2024 Protein [Mass/Vol] 0.3 g/dL Normal Not Establ. [facility] Comment on above: Performed By: #### L 503.0100, L503.0300 ####[facility] [address] [place], [address] Prothrombin Time w/INRon INR Coag (PPP) [Relative time] 2.0 {INR} Normal [facility] Comment on above: Performed By: #### L 300.3900 ####[facility] [address] [place], [address] PT Coag (PPP) [Time] 22.9 s High 11.7-14.9 [facility] Comment on above: Performed By: #### L 300.3900 ####[facility] [address] [place], [address] Special Stain Group IIon Special Stain Group II Normal [facility] Comment on above: Performed By: #### P SSII ####[facility] [address] [place], [address] Specimen source identificati on of body fluidOrdered By: Anurag Irene on 01-18-2025 Specimen source Nom (Body fld) PERITONEAL FLUID [facility] Stool Occult Blood iFOBon STOB Negative Normal [facility] Comment on above: Performed By: #### M 100.7900 ####[facility] [address] [place], [address] Stool gastrointestinal hemog lobin detection by immunologic methodOrdered By: Cielo Tovar on 01-18-2025 Lower GI hemoglobin IA Ql (Stl) [facility] Bedside Glucoseon 01-17-2025 FINGERSTICK GLU 180 mg/dL High 74-106 [facility] Comment on above: Result Comment: BRISA GEMENT OF PATIENT CARE PER NURSING PROTOCOL Performed By: #### L 501.080 ####[facility] [address] [place], [address] FINGERSTICK GLU 236 mg/dL High 74-106 [facility] Comment on above: Result Comment: BRISA GEMENT OF PATIENT CARE PER NURSING PROTOCOL Performed By: #### L 501.080 ####[facility] [address] [place], [address] FINGERSTICK GLU 141 mg/dL High -106 [facility] Comment on above: Result Comment: BRISA GEMENT OF PATIENT CARE PER NURSING PROTOCOL Performed By: #### L 501.080 ####[facility] [address] [place], [address] FINGERSTICK GLU 173 mg/dL High 74-106 [facility] Comment on above: Result Comment: BRISA GEMENT OF PATIENT CARE PER NURSING PROTOCOL Performed By: #### L 501.080 ####[facility] [address] [place], [address] CBC W/Diff, Automatedon 01-02 Absolute Lymph 1.09 X10 3/uL Normal 0.83-4.51 [facility] Comment on above: Performed By: #### L 100.0100 ####[facility] [address] [place], [address] Absolute Neut 5.7 X10 3/uL Normal 2.0-7.7 [facility] Comment on above: Performed By: #### L 100.0100 ####[facility] [address] [place], [address] Basophils/100 WBC (Bld) 0.5 % Normal 0-1 [facility] Comment on above: Performed By: #### L 100.0100 ####[facility] [address] [place], [address] Eosinophils/100 WBC (Bld) 6.8 % High 0-5 [facility] Comment on above: Performed By: #### L 100.0100 ####[facility] [address] [place], [address] Erythrocyte distribution width (RBC) [Ratio] 18.8 % High 11.6-14.6 [facility] Comment on above: Performed By: #### L 100.0100 ####[facility] [address] [place], [address] Hematocrit (Bld) [Volume fraction] 22.2 % Low 40-54 [facility] Comment on above: Performed By: #### L 100.0100 ####[facility] [address] [place], [address] Hemoglobin (Bld) [Mass/Vol] 7.5 g/dL Low 13.0-16.5 [facility] Comment on above: Performed By: #### L 100.0100 ####[facility] [address] [place], [address] IG% 1.100 High 0.0-0.9 [facility] Comment on above: Result Comment: IG% - Immature Granulocytes (promyelocytes, myelocytes andmetamyelocytes) > 1% indicates that a LEFT SHIFT is Present. Performed By: #### L 100.0100 ####[facility] [address] [place], [address] Lymphocytes/100 WBC (Bld) 12.9 % Low 19-41 [facility] Comment on above: Performed By: #### L 100.0100 ####[facility] [address] [place], [address] MCH (RBC) [Entitic mass] 30.0 pg Normal 27.0-32.0 [facility] Comment on above: Performed By: #### L 100.0100 ####[facility] [address] [place], [address] MCHC (RBC) [Mass/Vol] 33.8 g/dL Normal 32-36 [facility] Comment on above: Performed By: #### L 100.0100 ####[facility] [address] [place], [address] MCV (RBC) [Entitic vol] 88.8 fL Normal 80-94 [facility] Comment on above: Performed By: #### L 100.0100 ####[facility] [address] [place], [address] Monocytes/100 WBC (Bld) 11.5 % High 0-10 [facility] Comment on above: Performed By: #### L 100.0100 ####[facility] [address] [place], [address] Neutrophils/100 WBC (Bld) 67.2 % Normal 47-70 [facility] Comment on above: Performed By: #### L 100.0100 ####[facility] [address] [place], [address] Nucleated RBC (Bld) [#/Vol] 0 10*3/uL Normal 0-5 [facility] Comment on above: Performed By: #### L 100.0100 ####[facility] [address] [place], [address] Platelet mean volume (Bld) [Entitic vol] 10.7 fL Normal 6.2-12.0 [facility] Comment on above: Performed By: #### L 100.0100 ####[facility] [address] [place], [address] Platelets (Bld) [#/Vol] 109 10*3/uL Low 150-450 [facility] Comment on above: Performed By: #### L 100.0100 ####[facility] [address] [place], [address] RBC (Bld) [#/Vol] 2.50 10*6/uL Low 4.6-6.2 [facility] Comment on above: Performed By: #### L 100.0100 ####[facility] [address] [place], [address] RDW SD 58.8 fl High 35.1-43.9 [facility] Comment on above: Performed By: #### L 100.0100 ####[facility] [address] [place], [address] WBC (Bld) [#/Vol] 8.4 10*3/uL Normal 4.4-11.0 [facility] Comment on above: Performed By: #### L 100.0100 ####[facility] [address] [place], [address] Bedside Glucoseon 01-16-2025 FINGERSTICK GLU 227 mg/dL High 74-106 [facility] Comment on above: Result Comment: BRISA GEMENT OF PATIENT CARE PER NURSING PROTOCOL Performed By: #### L 501.080 ####[facility] [address] [place], [address] FINGERSTICK GLU 202 mg/dL High 74-106 [facility] Comment on above: Result Comment: BRISA GEMENT OF PATIENT CARE PER NURSING PROTOCOL Performed By: #### L 501.080 ####[facility] [address] [place], [address] FINGERSTICK GLU 177 mg/dL High 74-106 [facility] Comment on above: Result Comment: BRISA GEMENT OF PATIENT CARE PER NURSING PROTOCOL Performed By: #### L 501.080 ####[facility] [address] [place], [address] FINGERSTICK GLU 173 mg/dL High 74-106 [facility] Comment on above: Result Comment: BRISA MOROCHO OF PATIENT CARE PER NURSING PROTOCOL Performed By: #### L 501.080 ####[facility] [address] [place], [address] CBC W/Diff, Automatedon 01-02-2024 Absolute Lymph 1.16 X10 3/uL Normal 0.83-4.51 [facility] Comment on above: Performed By: #### L 100.0100 ####[facility] [address] [place], [address] Absolute Neut 5.2 X10 3/uL Normal 2.0-7.7 [facility] Comment on above: Performed By: #### L 100.0100 ####[facility] [address] [place], [address] Basophils/100 WBC (Bld) 0.4 % Normal 0-1 [facility] Comment on above: Performed By: #### L 100.0100 ####[facility] [address] [place], [address] Eosinophils/100 WBC (Bld) 6.5 % High 0-5 [facility] Comment on above: Performed By: #### L 100.0100 ####[facility] [address] [place], [address] Erythrocyte distribution width (RBC) [Ratio] 18.5 % High 11.6-14.6 [facility] Comment on above: Performed By: #### L 100.0100 ####[facility] [address] [place], [address] Hematocrit (Bld) [Volume fraction] 22.8 % Low 40-54 [facility] Comment on above: Performed By: #### L 100.0100 ####[facility] [address] [place], [address] Hemoglobin (Bld) [Mass/Vol] 7.8 g/dL Low 13.0-16.5 [facility] Comment on above: Performed By: #### L 100.0100 ####[facility] [address] [place], [address] IG% 0.900 Normal 0.0-0.9 [facility] Comment on above: Result Comment: IG% - Immature Granulocytes (promyelocytes, myelocytes andmetamyelocytes) > 1% indicates that a LEFT SHIFT is Present. Performed By: #### L 100.0100 ####[facility] [address] [place], [address] Lymphocytes/100 WBC (Bld) 14.6 % Low 19-41 [facility] Comment on above: Performed By: #### L 100.0100 ####[facility] [address] [place], [address] MCH (RBC) [Entitic mass] 30.2 pg Normal 27.0-32.0 [facility] Comment on above: Performed By: #### L 100.0100 ####[facility] [address] [place], [address] MCHC (RBC) [Mass/Vol] 34.2 g/dL Normal 32-36 [facility] Comment on above: Performed By: #### L 100.0100 ####[facility] [address] [place], [address] MCV (RBC) [Entitic vol] 88.4 fL Normal 80-94 [facility] Comment on above: Performed By: #### L 100.0100 ####[facility] [address] [place], [address] Monocytes/100 WBC (Bld) 12.7 % High 0-10 [facility] Comment on above: Performed By: #### L 100.0100 ####[facility] [address] [place], [address] Neutrophils/100 WBC (Bld) 64.9 % Normal 47-70 [facility] Comment on above: Performed By: #### L 100.0100 ####[facility] [address] [place], [address] Nucleated RBC (Bld) [#/Vol] 0 10*3/uL Normal 0-5 [facility] Comment on above: Performed By: #### L 100.0100 ####[facility] [address] [place], [address] Platelet mean volume (Bld) [Entitic vol] 10.8 fL Normal 6.2-12.0 [facility] Comment on above: Performed By: #### L 100.0100 ####[facility] [address] [place], [address] Platelets (Bld) [#/Vol] 111 10*3/uL Low 150-450 [facility] Comment on above: Performed By: #### L 100.0100 ####[facility] [address] [place], [address] RBC (Bld) [#/Vol] 2.58 10*6/uL Low 4.6-6.2 [facility] Comment on above: Performed By: #### L 100.0100 ####[facility] [address] [place], [address] RDW SD 57.9 fl High 35.1-43.9 [facility] Comment on above: Performed By: #### L 100.0100 ####[facility] [address] [place], [address] WBC (Bld) [#/Vol] 7.9 10*3/uL Normal 4.4-11.0 [facility] Comment on above: Performed By: #### L 100.0100 ####[facility] [address] [place], [address] Comprehensive Metabolic Prof ilon 01-16-2025 Albumin [Mass/Vol] 2.2 g/dL Low 3.5-5.0 [facility] Comment on above: Performed By: #### L 500.4050 ####[facility] [address] [place], [address] Albumin/Globulin [Mass ratio] 0.9 {ratio} Normal 0.9-2.4 [facility] Comment on above: Performed By: #### L 500.4050 ####[facility] [address] [place], [address] ALK PHOS 247 U/L High 40-129 [facility] Comment on above: Performed By: #### L 500.4050 ####[facility] [address] [place], [address] ALT [Catalytic activity/Vol] 49 U/L High <=46 [facility] Comment on above: Performed By: #### L 500.4050 ####[facility] [address] [place], [address] AST [Catalytic activity/Vol] 51 U/L High <=37 [facility] Comment on above: Performed By: #### L 500.4050 ####[facility] [address] [place], [address] Bilirubin [Mass/Vol] 1.89 mg/dL High 0.00-1.30 [facility] Comment on above: Performed By: #### L 500.4050 ####[facility] [address] [place], [address] BUN/CRE 7.1 RATIO Low 10-20 [facility] Comment on above: Performed By: #### L 500.4050 ####[facility] [address] [place], [address] Calcium [Mass/Vol] 7.8 mg/dL Normal 7.6-11.0 [facility] Comment on above: Performed By: #### L 500.4050 ####[facility] [address] [place], [address] Chloride [Moles/Vol] 93 mmol/L Low 98-108 [facility] Comment on above: Performed By: #### L 500.4050 ####[facility] [address] [place], [address] CO2 [Moles/Vol] 31.1 mmol/L Normal 21.0-32.0 [facility] Comment on above: Performed By: #### L 500.4050 ####[facility] [address] [place], [address] Creatinine [Mass/Vol] 0.80 mg/dL Normal 0.70-1.20 [facility] Comment on above: Performed By: #### L 500.4050 ####[facility] [address] [place], [address] ECRCL 118.59 ml/min Normal 50-250 [facility] Comment on above: Performed By: #### L 500.4050 ####[facility] [address] [place], [address] GAP 7 Normal 5-15 [facility] Comment on above: Performed By: #### L 500.4050 ####[facility] [address] [place], [address] GFR/1.73 sq M.predicted among non-blacks MDRD (S/P/Bld) [Vol rate/Area] 103 mL/min/{1.73_m2} Normal >60 [facility] Comment on above: Result Comment: mL/m in/1.73m2 CKD-EPI Creatinine Equation (2020) Performed By: #### L 500.4050 ####[facility] [address] [place], [address] Globulin (S) [Mass/Vol] 2.5 g/dL Normal 2.2-4.2 [facility] Comment on above: Performed By: #### L 500.4050 ####[facility] [address] [place], [address] Glucose [Mass/Vol] 174 mg/dL High 70-99 [facility] Comment on above: Performed By: #### L 500.4050 ####[facility] [address] [place], [address] Potassium [Moles/Vol] 3.3 mmol/L Normal 3.3-5.1 [facility] Comment on above: Performed By: #### L 500.4050 ####[facility] [address] [place], [address] Sodium [Moles/Vol] 132 mmol/L Low 133-145 [facility] Comment on above: Performed By: #### L 500.4050 ####[facility] [address] [place], [address] T PROT 4.8 g/dL Low 5.9-8.4 [facility] Comment on above: Performed By: #### L 500.4050 ####[facility] [address] [place], [address] Urea nitrogen [Mass/Vol] 6 mg/dL Normal 4-19 [facility] Comment on above: Performed By: #### L 500.4050 ####[facility] [address] [place], [address] Serum or plasma vancomycin m easurement (mass/volume)Ordered By: Cielo Tovar on 01-16-2025 Vancomycin [Mass/Vol] 7.7 ug/mL 0.0-15.0 [facility] Vancomycin, Random Levelon 0 01-16-2025 VANCO, RANDOM 7.7 ug/mL Normal 0.0-15.0 [facility] Comment on above: Result Comment: VANC OMYCIN STANDARD DRUG THERAPY: CRITICAL VALUE IS > 15.0 mg/LVANCOMYCIN HIGH INTENSITY THERAPY: CRITICAL VALUE IS > 20.0 mg/LPLEASE CONTACT PHARMACY SERVICES (#7182) FOR INTERPRETATIONOF RESULTS. THIS RESULT DOES NOT REPRESENT A PEAK OR TROUGHLEVEL FOR THIS DRUG. Performed By: #### L 501.8850 ####[facility] [address] [place], [address] Bedside Glucoseon 01-15-2025 FINGERSTICK GLU 237 mg/dL High [address] [place] [address] Comment on above: Result Comment: BRISA GEMENT OF PATIENT CARE PER NURSING PROTOCOL Performed By: #### L 501.080 ####[facility] [address] [place], [address] FINGERSTICK GLU 240 mg/dL High [address] [place] [address] Comment on above: Result Comment: BRISA GEMENT OF PATIENT CARE PER NURSING PROTOCOL Performed By: #### L 501.080 ####[facility] [address] [place], [address] FINGERSTICK GLU 221 mg/dL High [address] [place] [address] Comment on above: Result Comment: BRISA GEMENT OF PATIENT CARE PER NURSING PROTOCOL Performed By: #### L 501.080 ####[facility] [facility] [address] [place], [address] FINGERSTICK GLU 167 mg/dL High [address] [place] [address] Comment on above: Result Comment: BRISA GEMENT OF PATIENT CARE PER NURSING PROTOCOL Performed By: #### L 501.080 ####[facility] [address] [place], [address] FINGERSTICK GLU 173 mg/dL High 74-106 [facility] Comment on above: Result Comment: BRISA MOROCHO OF PATIENT CARE PER NURSING PROTOCOL Performed By: #### L 501.080 ####[facility] [address] [place], [address] CBC W/Diff, Automatedon 06-1 -2024 Absolute Lymph 1.06 X10 3/uL Normal 0.83-4.51 [facility] Comment on above: Performed By: #### L 100.0100, L500.4050 ####[facility] [address] [place], [address] Absolute Neut 5.3 X10 3/uL Normal 2.0-7.7 [facility] Comment on above: Performed By: #### L 100.0100, L500.4050 ####[facility] [address] [place], [address] Basophils/100 WBC (Bld) 0.5 % Normal 0-1 [facility] Comment on above: Performed By: #### L 100.0100, L500.4050 ####[facility] [address] [place], [address] Eosinophils/100 WBC (Bld) 6.1 % High 0-5 [facility] Comment on above: Performed By: #### L 100.0100, L500.4050 ####[facility] [address] [place], [address] Erythrocyte distribution width (RBC) [Ratio] 18.6 % High 11.6-14.6 [facility] Comment on above: Performed By: #### L 100.0100, L500.4050 ####[facility] [address] [place], [address] Hematocrit (Bld) [Volume fraction] 23.2 % Low 40-54 [facility] Comment on above: Performed By: #### L 100.0100, L500.4050 ####[facility] [address] [place], [address] Hemoglobin (Bld) [Mass/Vol] 7.9 g/dL Low 13.0-16.5 [facility] Comment on above: Performed By: #### L 100.0100, L500.4050 ####[facility] [address] [place], [address] IG% 1.000 High 0.0-0.9 [facility] Comment on above: Result Comment: IG% - Immature Granulocytes (promyelocytes, myelocytes andmetamyelocytes) > 1% indicates that a LEFT SHIFT is Present. Performed By: #### L 100.0100, L500.4050 ####[facility] [address] [place], [address] Lymphocytes/100 WBC (Bld) 13.2 % Low 19-41 [facility] Comment on above: Performed By: #### L 100.0100, L500.4050 ####[facility] [address] [place], [address] MCH (RBC) [Entitic mass] 29.8 pg Normal 27.0-32.0 [facility] Comment on above: Performed By: #### L 100.0100, L500.4050 ####[facility] [address] [place], [address] MCHC (RBC) [Mass/Vol] 34.1 g/dL Normal 32-36 [facility] Comment on above: Performed By: #### L 100.0100, L500.4050 ####[facility] [address] [place], [address] MCV (RBC) [Entitic vol] 87.5 fL Normal 80-94 [facility] Comment on above: Performed By: #### L 100.0100, L500.4050 ####[facility] [address] [place], [address] Monocytes/100 WBC (Bld) 13.6 % High 0-10 [facility] Comment on above: Performed By: #### L 100.0100, L500.4050 ####[facility] [address] [place], [address] Neutrophils/100 WBC (Bld) 65.6 % Normal 47-70 [facility] Comment on above: Performed By: #### L 100.0100, L500.4050 ####[facility] [address] [place], [address] Nucleated RBC (Bld) [#/Vol] 0 10*3/uL Normal 0-5 [facility] Comment on above: Performed By: #### L 100.0100, L500.4050 ####[facility] [address] [place], [address] Platelet mean volume (Bld) [Entitic vol] 11.0 fL Normal 6.2-12.0 [facility] Comment on above: Performed By: #### L 100.0100, L500.4050 ####[facility] [address] [place], [address] Platelets (Bld) [#/Vol] 118 10*3/uL Low 150-450 [facility] Comment on above: Performed By: #### L 100.0100, L500.4050 ####[facility] [address] [place], [address] RBC (Bld) [#/Vol] 2.65 10*6/uL Low 4.6-6.2 [facility] Comment on above: Performed By: #### L 100.0100, L500.4050 ####[facility] [address] [place], [address] RDW SD 58.1 fl High 35.1-43.9 [facility] Comment on above: Performed By: #### L 100.0100, L500.4050 ####[facility] [address] [place], [address] WBC (Bld) [#/Vol] 8.0 10*3/uL Normal 4.4-11.0 [facility] Comment on above: Performed By: #### L 100.0100, L500.4050 ####[facility] [address] [place], [address] Comprehensive Metabolic Prof ilon 01-15-2025 Albumin/Globulin [Mass ratio] 0.8 {ratio} Low 0.9-2.4 [facility] Comment on above: Performed By: #### L 100.0100, L500.4050 ####[facility] [address] [place], [address] ALK PHOS 275 U/L High 40-129 [facility] Comment on above: Performed By: #### L 100.0100, L500.4050 ####[facility] [address] [place], [address] ALT [Catalytic activity/Vol] 56 U/L High <=46 [facility] Comment on above: Performed By: #### L 100.0100, L500.4050 ####[facility] [address] [place], [address] AST [Catalytic activity/Vol] 64 U/L High <=37 [facility] Comment on above: Performed By: #### L 100.0100, L500.4050 ####[facility] [address] [place], [address] Bilirubin [Mass/Vol] 2.06 mg/dL High 0.00-1.30 [facility] Comment on above: Performed By: #### L 100.0100, L500.4050 ####[facility] [address] [place], [address] Calcium [Mass/Vol] 7.8 mg/dL Normal 7.6-11.0 [facility] Comment on above: Performed By: #### L 100.0100, L500.4050 ####[facility] [address] [place], [address] Chloride [Moles/Vol] 94 mmol/L Low 98-108 [facility] Comment on above: Performed By: #### L 100.0100, L500.4050 ####[facility] [address] [place], [address] CO2 [Moles/Vol] 26.7 mmol/L Normal 21.0-32.0 [facility] Comment on above: Performed By: #### L 100.0100, L500.4050 ####[facility] [address] [place], [address] GAP 9 Normal 5-15 [facility] Comment on above: Performed By: #### L 100.0100, L500.4050 ####[facility] [address] [place], [address] Potassium [Moles/Vol] 3.2 mmol/L Low 3.3-5.1 [facility] Comment on above: Performed By: #### L 100.0100, L500.4050 ####[facility] [address] [place], [address] Sodium [Moles/Vol] 130 mmol/L Low 133-145 [facility] Comment on above: Performed By: #### L 100.0100, L500.4050 ####[facility] [address] [place], [address] Albumin [Mass/Vol] 2.2 g/dL Low 3.5-5.0 [facility] Comment on above: Performed By: #### L 100.0100, L500.4050 ####[facility] [address] [place], [address] BUN/CRE 6.0 RATIO Low 10-20 [facility] Comment on above: Performed By: #### L 100.0100, L500.4050 ####[facility] [address] [place], [address] Creatinine [Mass/Vol] 0.82 mg/dL Normal 0.70-1.20 [facility] Comment on above: Performed By: #### L 100.0100, L500.4050 ####[facility] [address] [place], [address] ECRCL 115.58 ml/min Normal 50-250 [facility] Comment on above: Performed By: #### L 100.0100, L500.4050 ####[facility] [address] [place], [address] GFR/1.73 sq M.predicted among non-blacks MDRD (S/P/Bld) [Vol rate/Area] 102 mL/min/{1.73_m2} Normal >60 [facility] Comment on above: Result Comment: mL/m in/1.73m2 CKD-EPI Creatinine Equation (2020) Performed By: #### L 100.0100, L500.4050 ####[facility] [address] [place], [address] Globulin (S) [Mass/Vol] 2.7 g/dL Normal 2.2-4.2 [facility] Comment on above: Performed By: #### L 100.0100, L500.4050 ####[facility] [address] [place], [address] Glucose [Mass/Vol] 178 mg/dL High 70-99 [facility] Comment on above: Performed By: #### L 100.0100, L500.4050 ####[facility] [address] [place], [address] T PROT 4.9 g/dL Low 5.9-8.4 [facility] Comment on above: Performed By: #### L 100.0100, L500.4050 ####[facility] [address] [place], [address] Urea nitrogen [Mass/Vol] 5 mg/dL Normal 4-19 [facility] Comment on above: Performed By: #### L 100.0100, L500.4050 ####[facility] [address] [place], [address] Vancomycin, Random Levelon 0 - VANCO, RANDOM 20.7 ug/mL High 0.0-15.0 [facility] Comment on above: Result Comment: VANC OMYCIN STANDARD DRUG THERAPY: CRITICAL VALUE IS > 15.0 mg/LVANCOMYCIN HIGH INTENSITY THERAPY: CRITICAL VALUE IS > 20.0 mg/LPLEASE CONTACT PHARMACY SERVICES (#5226) FOR INTERPRETATIONOF RESULTS. THIS RESULT DOES NOT REPRESENT A PEAK OR TROUGHLEVEL FOR THIS DRUG. Performed By: #### L 501.8850 ####[facility] [address] [place], [address] Bedside Glucoseon 01-14-2025 FINGERSTICK GLU 194 mg/dL High 74-106 [facility] Comment on above: Result Comment: BRISA GEMENT OF PATIENT CARE PER NURSING PROTOCOL Performed By: #### L 501.080 ####[facility] [address] [place], [address] FINGERSTICK GLU 261 mg/dL High 74-106 [facility] Comment on above: Result Comment: BRISA GEMENT OF PATIENT CARE PER NURSING PROTOCOL Performed By: #### L 501.080 ####[facility] [address] [place], [address] FINGERSTICK GLU 263 mg/dL High 74-106 [facility] Comment on above: Result Comment: BRISA MOROCHO OF PATIENT CARE PER NURSING PROTOCOL Performed By: #### L 501.080 ####[facility] [address] [place], [address] CBC W/Diff, Automatedon 06-08 06-2024 Absolute Lymph 1.09 X10 3/uL Normal 0.83-4.51 [facility] Comment on above: Performed By: #### L 100.0100, L500.4050 ####[facility] [address] [place], [address] Absolute Neut 5.3 X10 3/uL Normal 2.0-7.7 [facility] Comment on above: Performed By: #### L 100.0100, L500.4050 ####[facility] [address] [place], [address] Basophils/100 WBC (Bld) 0.4 % Normal 0-1 [facility] Comment on above: Performed By: #### L 100.0100, L500.4050 ####[facility] [address] [place], [address] Eosinophils/100 WBC (Bld) 5.5 % High 0-5 [facility] Comment on above: Performed By: #### L 100.0100, L500.4050 ####[facility] [address] [place], [address] Erythrocyte distribution width (RBC) [Ratio] 18.5 % High 11.6-14.6 [facility] Comment on above: Performed By: #### L 100.0100, L500.4050 ####[facility] [address] [place], [address] Hematocrit (Bld) [Volume fraction] 23.2 % Low 40-54 [facility] Comment on above: Performed By: #### L 100.0100, L500.4050 ####[facility] [address] [place], [address] Hemoglobin (Bld) [Mass/Vol] 7.8 g/dL Low 13.0-16.5 [facility] Comment on above: Performed By: #### L 100.0100, L500.4050 ####[facility] [address] [place], [address] IG% 1.000 High 0.0-0.9 [facility] Comment on above: Result Comment: IG% - Immature Granulocytes (promyelocytes, myelocytes andmetamyelocytes) > 1% indicates that a LEFT SHIFT is Present. Performed By: #### L 100.0100, L500.4050 ####[facility] [address] [place], [address] Lymphocytes/100 WBC (Bld) 13.5 % Low 19-41 [facility] Comment on above: Performed By: #### L 100.0100, L500.4050 ####[facility] [address] [place], [address] MCH (RBC) [Entitic mass] 29.5 pg Normal 27.0-32.0 [facility] Comment on above: Performed By: #### L 100.0100, L500.4050 ####[facility] [address] [place], [address] MCHC (RBC) [Mass/Vol] 33.6 g/dL Normal 32-36 [facility] Comment on above: Performed By: #### L 100.0100, L500.4050 ####[facility] [address] [place], [address] MCV (RBC) [Entitic vol] 87.9 fL Normal 80-94 [facility] Comment on above: Performed By: #### L 100.0100, L500.4050 ####[facility] [address] [place], [address] Monocytes/100 WBC (Bld) 14.3 % High 0-10 [facility] Comment on above: Performed By: #### L 100.0100, L500.4050 ####[facility] [address] [place], [address] Neutrophils/100 WBC (Bld) 65.3 % Normal 47-70 [facility] Comment on above: Performed By: #### L 100.0100, L500.4050 ####[facility] [address] [place], [address] Nucleated RBC (Bld) [#/Vol] 0 10*3/uL Normal 0-5 [facility] Comment on above: Performed By: #### L 100.0100, L500.4050 ####[facility] [address] [place], [address] Platelet mean volume (Bld) [Entitic vol] 11.8 fL Normal 6.2-12.0 [facility] Comment on above: Performed By: #### L 100.0100, L500.4050 ####[facility] [address] [place], [address] Platelets (Bld) [#/Vol] 121 10*3/uL Low 150-450 [facility] Comment on above: Performed By: #### L 100.0100, L500.4050 ####[facility] [address] [place], [address] RBC (Bld) [#/Vol] 2.64 10*6/uL Low 4.6-6.2 [facility] Comment on above: Performed By: #### L 100.0100, L500.4050 ####[facility] [address] [place], [address] RDW SD 58.4 fl High 35.1-43.9 [facility] Comment on above: Performed By: #### L 100.0100, L500.4050 ####[facility] [address] [place], [address] WBC (Bld) [#/Vol] 8.1 10*3/uL Normal 4.4-11.0 [facility] Comment on above: Performed By: #### L 100.0100, L500.4050 ####[facility] [address] [place], [address] Chest without Contraston Chest without Contrast Normal [facility] Comprehensive Metabolic Prof ilon 01-14-2025 Albumin [Mass/Vol] 2.4 g/dL Low 3.5-5.0 [facility] Comment on above: Performed By: #### L 100.0100, L500.4050 ####[facility] [address] [place], [address] Albumin/Globulin [Mass ratio] 0.9 {ratio} Normal 0.9-2.4 [facility] Comment on above: Performed By: #### L 100.0100, L500.4050 ####[facility] [address] [place], [address] ALK PHOS 293 U/L High 40-129 [facility] Comment on above: Performed By: #### L 100.0100, L500.4050 ####[facility] [address] [place], [address] ALT [Catalytic activity/Vol] 61 U/L High <=46 [facility] Comment on above: Performed By: #### L 100.0100, L500.4050 ####[facility] [address] [place], [address] AST [Catalytic activity/Vol] 83 U/L High <=37 [facility] Comment on above: Performed By: #### L 100.0100, L500.4050 ####[facility] [address] [place], [address] Bilirubin [Mass/Vol] 2.64 mg/dL High 0.00-1.30 [facility] Comment on above: Performed By: #### L 100.0100, L500.4050 ####[facility] [address] [place], [address] BUN/CRE 6.4 RATIO Low 10-20 [facility] Comment on above: Performed By: #### L 100.0100, L500.4050 ####[facility] [address] [place], [address] Calcium [Mass/Vol] 7.9 mg/dL Normal 7.6-11.0 [facility] Comment on above: Performed By: #### L 100.0100, L500.4050 ####[facility] [address] [place], [address] Chloride [Moles/Vol] 95 mmol/L Low 98-108 [facility] Comment on above: Performed By: #### L 100.0100, L500.4050 ####[facility] [address] [place], [address] CO2 [Moles/Vol] 25.1 mmol/L Normal 21.0-32.0 [facility] Comment on above: Performed By: #### L 100.0100, L500.4050 ####[facility] [address] [place], [address] Creatinine [Mass/Vol] 0.86 mg/dL Normal 0.70-1.20 [facility] Comment on above: Performed By: #### L 100.0100, L500.4050 ####[facility] [address] [place], [address] ECRCL 110.10 ml/min Normal 50-250 [facility] Comment on above: Performed By: #### L 100.0100, L500.4050 ####[facility] [address] [place], [address] GAP 11 Normal 5-15 [facility] Comment on above: Performed By: #### L 100.0100, L500.4050 ####[facility] [address] [place], [address] GFR/1.73 sq M.predicted among non-blacks MDRD (S/P/Bld) [Vol rate/Area] 100 mL/min/{1.73_m2} Normal >60 [facility] Comment on above: Result Comment: mL/m in/1.73m2 CKD-EPI Creatinine Equation (2020) Performed By: #### L 100.0100, L500.4050 ####[facility] [address] [place], [address] Globulin (S) [Mass/Vol] 2.5 g/dL Normal 2.2-4.2 [facility] Comment on above: Performed By: #### L 100.0100, L500.4050 ####[facility] [address] [place], [address] Glucose [Mass/Vol] 280 mg/dL High 70-99 [facility] Comment on above: Performed By: #### L 100.0100, L500.4050 ####[facility] [address] [place], [address] Potassium [Moles/Vol] 3.0 mmol/L Low 3.3-5.1 [facility] Comment on above: Performed By: #### L 100.0100, L500.4050 ####[facility] [address] [place], [address] Sodium [Moles/Vol] 131 mmol/L Low 133-145 [facility] Comment on above: Performed By: #### L 100.0100, L500.4050 ####[facility] [address] [place], [address] T PROT 4.9 g/dL Low 5.9-8.4 [facility] Comment on above: Performed By: #### L 100.0100, L500.4050 ####[facility] [address] [place], [address] Urea nitrogen [Mass/Vol] 6 mg/dL Normal 4-19 [facility] Comment on above: Performed By: #### L 100.0100, L500.4050 ####[facility] [address] [place], [address] Culture, Blood (WB)on 2024 CUB Blood cultures x2, f rom two different sites No growth in 5 days. Normal [facility] Comment on above: Performed By: #### M 200.1000 ####[facility] [address] [place], [address] Magnetic resonance imaging r eportOrdered By: Kenneth Barton on 01-14-2025 Study report [facility] Work Phone: PSA,Total- Diagnosticon 01-02 PSA, DIAGNOSTIC 0.65 ng/mL Normal 0.00-4.00 [facility] Comment on above: Result Comment: This test was performed using the [employer] tPSAmethod. Measured values of a patient??sample can varydepending on the testing procedure used. PSA valuesdetermined on patient samples by different testingprocedures cannot be used interchangeably. If there is achange in PSA assays while monitoring therapy, sequentialtesting should be performed to confirm baseline values. Performed By: #### L 339.0919 ####[facility] [address] [place], [address] Trough vancomycin levelOrder ed By: Cielo Tovar on 01-14-2025 Vancomycin trough [Mass/Vol] 21.4 ug/mL High 5.0-15.0 [facility] Vancomycin, Trough Levelon 0 01-14-2025 VANCO, TROUGH 21.4 ug/mL High 5.0-15.0 [facility] Comment on above: Order Comment: 1830 [...] therapy recommended for serious lifethreatening infections include:- Ljloxaffzs-Gzfxkaaigwie-Hjagzjieg (Ventilator/Healtcare Associated)-SepsisPLEASE CONTACT PHARMACY SERVICES (#4120) FOR INTERPRETATIONOF RESULTS. Performed By: #### L 501.8820 ####[facility] [address] [place], [address] BRCon 01-13-2025 Normal [facility] Comment on above: Result Comment: [id number] ON RC TRANSFUSED 01/13/25 1613 Performed By: #### B , BTS ####[facility] [address] [place], [address] Bedside Glucoseon 01-13-2025 FINGERSTICK GLU 272 mg/dL High 74-106 [facility] Comment on above: Result Comment: BRISA GEMENT OF PATIENT CARE PER NURSING PROTOCOL Performed By: #### L 501.080 ####[facility] [address] [place], [address] FINGERSTICK GLU 268 mg/dL High 74-106 [facility] Comment on above: Result Comment: BRISA GEMENT OF PATIENT CARE PER NURSING PROTOCOL Performed By: #### L 501.080 ####[facility] [address] [place], [address] FINGERSTICK GLU 249 mg/dL High 74-106 [facility] Comment on above: Result Comment: BRISA GEMENT OF PATIENT CARE PER NURSING PROTOCOL Performed By: #### L 501.080 ####[facility] [address] [place], [address] FINGERSTICK GLU 201 mg/dL High 74-106 [facility] Comment on above: Result Comment: BRISA GEMENT OF PATIENT CARE PER NURSING PROTOCOL Performed By: #### L 501.080 ####[facility] [address] [place], [address] CBC W/Diff, Automatedon 01-02-2024 Absolute Lymph 1.25 X10 3/uL Normal 0.83-4.51 [facility] Comment on above: Performed By: #### L 100.0100, L500.4050 ####[facility] [address] [place], [address] Absolute Neut 5.7 X10 3/uL Normal 2.0-7.7 [facility] Comment on above: Performed By: #### L 100.0100, L500.4050 ####[facility] [address] [place], [address] Basophils/100 WBC (Bld) 0.3 % Normal 0-1 [facility] Comment on above: Performed By: #### L 100.0100, L500.4050 ####[facility] [address] [place], [address] Eosinophils/100 WBC (Bld) 5.2 % High 0-5 [facility] Comment on above: Performed By: #### L 100.0100, L500.4050 ####[facility] [address] [place], [address] Erythrocyte distribution width (RBC) [Ratio] 18.6 % High 11.6-14.6 [facility] Comment on above: Performed By: #### L 100.0100, L500.4050 ####[facility] [address] [place], [address] Hematocrit (Bld) [Volume fraction] 21.0 % Low 40-54 [facility] Comment on above: Performed By: #### L 100.0100, L500.4050 ####[facility] [address] [place], [address] Hemoglobin (Bld) [Mass/Vol] 7.2 g/dL Low 13.0-16.5 [facility] Comment on above: Performed By: #### L 100.0100, L500.4050 ####[facility] [address] [place], [address] IG% 0.800 Normal 0.0-0.9 [facility] Comment on above: Result Comment: IG% - Immature Granulocytes (promyelocytes, myelocytes andmetamyelocytes) > 1% indicates that a LEFT SHIFT is Present. Performed By: #### L 100.0100, L500.4050 ####[facility] [address] [place], [address] Lymphocytes/100 WBC (Bld) 14.4 % Low 19-41 [facility] Comment on above: Performed By: #### L 100.0100, L500.4050 ####[facility] [address] [place], [address] MCH (RBC) [Entitic mass] 30.3 pg Normal 27.0-32.0 [facility] Comment on above: Performed By: #### L 100.0100, L500.4050 ####[facility] [address] [place], [address] MCHC (RBC) [Mass/Vol] 34.3 g/dL Normal 32-36 [facility] Comment on above: Performed By: #### L 100.0100, L500.4050 ####[facility] [address] [place], [address] MCV (RBC) [Entitic vol] 88.2 fL Normal 80-94 [facility] Comment on above: Performed By: #### L 100.0100, L500.4050 ####[facility] [address] [place], [address] Monocytes/100 WBC (Bld) 13.7 % High 0-10 [facility] Comment on above: Performed By: #### L 100.0100, L500.4050 ####[facility] [address] [place], [address] Neutrophils/100 WBC (Bld) 65.6 % Normal 47-70 [facility] Comment on above: Performed By: #### L 100.0100, L500.4050 ####[facility] [address] [place], [address] Nucleated RBC (Bld) [#/Vol] 0 10*3/uL Normal 0-5 [facility] Comment on above: Performed By: #### L 100.0100, L500.4050 ####[facility] [address] [place], [address] Platelet mean volume (Bld) [Entitic vol] 11.3 fL Normal 6.2-12.0 [facility] Comment on above: Performed By: #### L 100.0100, L500.4050 ####[facility] [address] [place], [address] Platelets (Bld) [#/Vol] 124 10*3/uL Low 150-450 [facility] Comment on above: Performed By: #### L 100.0100, L500.4050 ####[facility] [address] [place], [address] RBC (Bld) [#/Vol] 2.38 10*6/uL Low 4.6-6.2 [facility] Comment on above: Performed By: #### L 100.0100, L500.4050 ####[facility] [address] [place], [address] RDW SD 59.2 fl High 35.1-43.9 [facility] Comment on above: Performed By: #### L 100.0100, L500.4050 ####[facility] [address] [place], [address] WBC (Bld) [#/Vol] 8.7 10*3/uL Normal 4.4-11.0 [facility] Comment on above: Performed By: #### L 100.0100, L500.4050 ####[facility] [address] [place], [address] Comprehensive Metabolic Prof [facility] 01-13-2025 Albumin [Mass/Vol] 2.3 g/dL Low 3.5-5.0 [facility] Comment on above: Performed By: #### L 100.0100, L500.4050 ####[facility] [address] [place], [address] Albumin/Globulin [Mass ratio] 0.9 {ratio} Normal 0.9-2.4 [facility] Comment on above: Performed By: #### L 100.0100, L500.4050 ####[facility] [address] [place], [address] ALK PHOS 306 U/L High 40-129 [facility] Comment on above: Performed By: #### L 100.0100, L500.4050 ####[facility] [address] [place], [address] ALT [Catalytic activity/Vol] 72 U/L High <=46 [facility] Comment on above: Performed By: #### L 100.0100, L500.4050 ####[facility] [address] [place], [address] AST [Catalytic activity/Vol] 107 U/L High <=37 [facility] Comment on above: Performed By: #### L 100.0100, L500.4050 ####[facility] [address] [place], [address] Bilirubin [Mass/Vol] 1.69 mg/dL High 0.00-1.30 [facility] Comment on above: Performed By: #### L 100.0100, L500.4050 ####[facility] [address] [place], [address] BUN/CRE 7.3 RATIO Low 10-20 [facility] Comment on above: Performed By: #### L 100.0100, L500.4050 ####[facility] [address] [place], [address] Calcium [Mass/Vol] 7.7 mg/dL Normal 7.6-11.0 [facility] Comment on above: Performed By: #### L 100.0100, L500.4050 ####[facility] [address] [place], [address] Chloride [Moles/Vol] 96 mmol/L Low 98-108 [facility] Comment on above: Performed By: #### L 100.0100, L500.4050 ####[facility] [address] [place], [address] CO2 [Moles/Vol] 25.5 mmol/L Normal 21.0-32.0 [facility] Comment on above: Performed By: #### L 100.0100, L500.4050 ####[facility] [address] [place], [address] Creatinine [Mass/Vol] 0.90 mg/dL Normal 0.70-1.20 [facility] Comment on above: Performed By: #### L 100.0100, L500.4050 ####[facility] [address] [place], [address] ECRCL 103.13 ml/min Normal 50-250 [facility] Comment on above: Performed By: #### L 100.0100, L500.4050 ####[facility] [address] [place], [address] GAP 10 Normal 5-15 [facility] Comment on above: Performed By: #### L 100.0100, L500.4050 ####[facility] [address] [place], [address] GFR/1.73 sq M.predicted among non-blacks MDRD (S/P/Bld) [Vol rate/Area] 99 mL/min/{1.73_m2} Normal >60 [facility] Comment on above: Result Comment: mL/m in/1.73m2 CKD-EPI Creatinine Equation (2020) Performed By: #### L 100.0100, L500.4050 ####[facility] [address] [place], [address] Globulin (S) [Mass/Vol] 2.6 g/dL Normal 2.2-4.2 [facility] Comment on above: Performed By: #### L 100.0100, L500.4050 ####[facility] [address] [place], [address] Glucose [Mass/Vol] 187 mg/dL High 70-99 [facility] Comment on above: Performed By: #### L 100.0100, L500.4050 ####[facility] [address] [place], [address] Potassium [Moles/Vol] 3.1 mmol/L Low 3.3-5.1 [facility] Comment on above: Performed By: #### L 100.0100, L500.4050 ####[facility] [address] [place], [address] Sodium [Moles/Vol] 132 mmol/L Low 133-145 [facility] Comment on above: Performed By: #### L 100.0100, L500.4050 ####[facility] [address] [place], [address] T PROT 4.9 g/dL Low 5.9-8.4 [facility] Comment on above: Performed By: #### L 100.0100, L500.4050 ####[facility] [address] [place], [address] Urea nitrogen [Mass/Vol] 7 mg/dL Normal 4-19 [facility] Comment on above: Performed By: #### L 100.0100, L500.4050 ####[facility] [address] [place], [address] Ferritinon 01-13-2025 Ferritin [Mass/Vol] 76 ng/mL Normal 37-417 [facility] Comment on above: Performed By: #### L 503.6550, L503.6030 ####[facility] [address] [place], [address] Iron measurement (mass/mass) Ordered By: Cielo Tovar on 01-13-2025 Iron (Unsp spec) [Mass/Mass] 110 ug/dL 65-175 [facility] Iron+Iron Binding Capacityon 01-13-2025 TIBC 211 ug/dL Low 250-450 [facility] Comment on above: Performed By: #### L 503.6550, L503.6030 ####[facility] [address] [place], [address] Magnetic resonance imaging r eportOrdered By: Jerry Osorio on 01-13-2025 Study report [facility] No Panel InformationOrdered By: Cielo Tovar on 01-13-2025 101 ug/dL Low 228-428 [facility] Serum or plasma ferritin wei surement (mass/volume)Ordered By: Cielo Tovar on 01-13-2025 Ferritin [Mass/Vol] 76 ng/mL 37-417 [facility] Serum or plasma iron saturat ion measurement (mass fraction)Ordered By: Cielo Guy on 01-13-2025 Iron saturation [Mass fraction] 52.1 % 9-55 [facility] Spine Lumbar (Routine)on Spine Lumbar (Routine) Normal [facility] Spine Thoracic (Routine)on 0 01-13-2025 Spine Thoracic (Routine) Normal [facility] Type AND Screenon 01-13-2025 ABO and Rh group Nom (Bld) Blood group O Rh(D) positive Normal [facility] Comment on above: Order Comment: CMV N EG? NNumber of units to transfuse: 1Reason for Ordering Blood: AcuteAre the blood/blood products to be transfused? YIs the patient having/had surgery? NNWhen ReadyNYA Performed By: #### B RC, BTS ####[facility] [address] [place], [address] Vancomycin, Trough Levelon 0 01-13-2025 VANCO, TROUGH 19.8 ug/mL High 5.0-15.0 [facility] Comment on above: Order Comment: Comme nts: Trough to be drawn 30 mins prior to scheduled [id number] Result Comment: Eleazar mmended goal trough ranges [...] therapy recommended for serious lifethreatening infections include:- Xoyxqabwgf-Hakcqdhhzbmm-Rpctpwhgv (Ventilator/Healtcare Associated)-SepsisPLEASE CONTACT PHARMACY SERVICES (#0597) FOR INTERPRETATIONOF RESULTS. Performed By: #### L 838.2586 ####[facility] [address] [place], [address] Bedside Glucoseon 01-12-2025 FINGERSTICK GLU 241 mg/dL High [address] [place] [address] Comment on above: Result Comment: BRISA GEMENT OF PATIENT CARE PER NURSING PROTOCOL Performed By: #### L 501.080 ####[facility] [address] [place], [address] FINGERSTICK GLU 316 mg/dL High -106 [facility] Comment on above: Result Comment: BRISA GEMENT OF PATIENT CARE PER NURSING PROTOCOL Performed By: #### L 501.080 ####[facility] [address] [place], [address] FINGERSTICK GLU 224 mg/dL High [address] [place] [address] Comment on above: Result Comment: BRISA GEMENT OF PATIENT CARE PER NURSING PROTOCOL Performed By: #### L 501.080 ####[facility] [address] [place], [address] FINGERSTICK GLU 214 mg/dL High [address] [place] [address] Comment on above: Result Comment: BRISA GEMENT OF PATIENT CARE PER NURSING PROTOCOL Performed By: #### L 501.080 ####[facility] [address] [place], [address] CBC W/Diff, Automatedon 01-02 Absolute Lymph 0.99 X10 3/uL Normal 0.83-4.51 [facility] Comment on above: Performed By: #### L 100.0100, L500.4050 ####[facility] [address] [place], [address] Absolute Neut 5.9 X10 3/uL Normal 2.0-7.7 [facility] Comment on above: Performed By: #### L 100.0100, L500.4050 ####[facility] [address] [place], [address] Basophils/100 WBC (Bld) 0.5 % Normal 0-1 [facility] Comment on above: Performed By: #### L 100.0100, L500.4050 ####[facility] [address] [place], [address] Eosinophils/100 WBC (Bld) 6.5 % High 0-5 [facility] Comment on above: Performed By: #### L 100.0100, L500.4050 ####[facility] [address] [place], [address] Erythrocyte distribution width (RBC) [Ratio] 18.4 % High 11.6-14.6 [facility] Comment on above: Performed By: #### L 100.0100, L500.4050 ####[facility] [address] [place], [address] Hematocrit (Bld) [Volume fraction] 21.8 % Low 40-54 [facility] Comment on above: Performed By: #### L 100.0100, L500.4050 ####[facility] [address] [place], [address] Hemoglobin (Bld) [Mass/Vol] 7.4 g/dL Low 13.0-16.5 [facility] Comment on above: Performed By: #### L 100.0100, L500.4050 ####[facility] [address] [place], [address] IG% 1.100 High 0.0-0.9 [facility] Comment on above: Result Comment: IG% - Immature Granulocytes (promyelocytes, myelocytes andmetamyelocytes) > 1% indicates that a LEFT SHIFT is Present. Performed By: #### L 100.0100, L500.4050 ####[facility] [address] [place], [address] Lymphocytes/100 WBC (Bld) 11.6 % Low 19-41 [facility] Comment on above: Performed By: #### L 100.0100, L500.4050 ####[facility] [address] [place], [address] MCH (RBC) [Entitic mass] 29.5 pg Normal 27.0-32.0 [facility] Comment on above: Performed By: #### L 100.0100, L500.4050 ####[facility] [address] [place], [address] MCHC (RBC) [Mass/Vol] 33.9 g/dL Normal 32-36 [facility] Comment on above: Performed By: #### L 100.0100, L500.4050 ####[facility] [address] [place], [address] MCV (RBC) [Entitic vol] 86.9 fL Normal 80-94 [facility] Comment on above: Performed By: #### L 100.0100, L500.4050 ####[facility] [address] [place], [address] Monocytes/100 WBC (Bld) 12.1 % High 0-10 [facility] Comment on above: Performed By: #### L 100.0100, L500.4050 ####[facility] [address] [place], [address] Neutrophils/100 WBC (Bld) 68.2 % Normal 47-70 [facility] Comment on above: Performed By: #### L 100.0100, L500.4050 ####[facility] [address] [place], [address] Nucleated RBC (Bld) [#/Vol] 0 10*3/uL Normal 0-5 [facility] Comment on above: Performed By: #### L 100.0100, L500.4050 ####[facility] [address] [place], [address] Platelet mean volume (Bld) [Entitic vol] 11.7 fL Normal 6.2-12.0 [facility] Comment on above: Performed By: #### L 100.0100, L500.4050 ####[facility] [address] [place], [address] Platelets (Bld) [#/Vol] 127 10*3/uL Low 150-450 [facility] Comment on above: Performed By: #### L 100.0100, L500.4050 ####[facility] [address] [place], [address] RBC (Bld) [#/Vol] 2.51 10*6/uL Low 4.6-6.2 [facility] Comment on above: Performed By: #### L 100.0100, L500.4050 ####[facility] [address] [place], [address] RDW SD 57.6 fl High 35.1-43.9 [facility] Comment on above: Performed By: #### L 100.0100, L500.4050 ####[facility] [address] [place], [address] WBC (Bld) [#/Vol] 8.6 10*3/uL Normal 4.4-11.0 [facility] Comment on above: Performed By: #### L 100.0100, L500.4050 ####[facility] [address] [place], [address] Comprehensive Metabolic Prof [facility] 01-12-2025 Albumin [Mass/Vol] 2.4 g/dL Low 3.5-5.0 [facility] Comment on above: Performed By: #### L 100.0100, L500.4050 ####[facility] [address] [place], [address] Albumin/Globulin [Mass ratio] 0.9 {ratio} Normal 0.9-2.4 [facility] Comment on above: Performed By: #### L 100.0100, L500.4050 ####[facility] [address] [place], [address] ALK PHOS 332 U/L High 40-129 [facility] Comment on above: Performed By: #### L 100.0100, L500.4050 ####[facility] [address] [place], [address] ALT [Catalytic activity/Vol] 82 U/L High <=46 [facility] Comment on above: Performed By: #### L 100.0100, L500.4050 ####[facility] [address] [place], [address] AST [Catalytic activity/Vol] 148 U/L High <=37 [facility] Comment on above: Performed By: #### L 100.0100, L500.4050 ####[facility] [address] [place], [address] Bilirubin [Mass/Vol] 1.95 mg/dL High 0.00-1.30 [facility] Comment on above: Performed By: #### L 100.0100, L500.4050 ####[facility] [address] [place], [address] BUN/CRE 10.5 RATIO Normal 10-20 [facility] Comment on above: Performed By: #### L 100.0100, L500.4050 ####[facility] [address] [place], [address] Calcium [Mass/Vol] 7.6 mg/dL Normal 7.6-11.0 [facility] Comment on above: Performed By: #### L 100.0100, L500.4050 ####[facility] [address] [place], [address] Chloride [Moles/Vol] 97 mmol/L Low 98-108 [facility] Comment on above: Performed By: #### L 100.0100, L500.4050 ####[facility] [address] [place], [address] CO2 [Moles/Vol] 24.4 mmol/L Normal 21.0-32.0 [facility] Comment on above: Performed By: #### L 100.0100, L500.4050 ####[facility] [address] [place], [address] Creatinine [Mass/Vol] 0.93 mg/dL Normal 0.70-1.20 [facility] Comment on above: Performed By: #### L 100.0100, L500.4050 ####[facility] [address] [place], [address] ECRCL 99.17 ml/min Normal 50-250 [facility] Comment on above: Performed By: #### L 100.0100, L500.4050 ####[facility] [address] [place], [address] GAP 9 Normal 5-15 [facility] Comment on above: Performed By: #### L 100.0100, L500.4050 ####[facility] [address] [place], [address] GFR/1.73 sq M.predicted among non-blacks MDRD (S/P/Bld) [Vol rate/Area] 95 mL/min/{1.73_m2} Normal >60 [facility] Comment on above: Result Comment: mL/m in/1.73m2 CKD-EPI Creatinine Equation (2020) Performed By: #### L 100.0100, L500.4050 ####[facility] [address] [place], [address] Globulin (S) [Mass/Vol] 2.7 g/dL Normal 2.2-4.2 [facility] Comment on above: Performed By: #### L 100.0100, L500.4050 ####[facility] [address] [place], [address] Glucose [Mass/Vol] 241 mg/dL High 70-99 [facility] Comment on above: Performed By: #### L 100.0100, L500.4050 ####[facility] [address] [place], [address] Potassium [Moles/Vol] 3.1 mmol/L Low 3.3-5.1 [facility] Comment on above: Performed By: #### L 100.0100, L500.4050 ####[facility] [address] [place], [address] Sodium [Moles/Vol] 130 mmol/L Low 133-145 [facility] Comment on above: Performed By: #### L 100.0100, L500.4050 ####[facility] [address] [place], [address] T PROT 5.0 g/dL Low 5.9-8.4 [facility] Comment on above: Performed By: #### L 100.0100, L500.4050 ####[facility] [address] [place], [address] Urea nitrogen [Mass/Vol] 10 mg/dL Normal 4-19 [facility] Comment on above: Performed By: #### L 100.0100, L500.4050 ####[facility] [address] [place], [address] Urine Cultureon 01-12-2025 [facility] Urine Culture Urine Culture Yeast, not Mary albicans [place] Count 25,000-50,000 Normal [facility] Comment on above: Performed By: #### M 100.2200 ####[facility] [address] [place], [address] Bedside Glucoseon 01-11-2025 FINGERSTICK GLU 258 mg/dL High [address] [place] [address] Comment on above: Result Comment: BRISA GEMENT OF PATIENT CARE PER NURSING PROTOCOL Performed By: #### L 501.080 ####[facility] [address] [place], [address] FINGERSTICK GLU 298 mg/dL High -106 [facility] Comment on above: Result Comment: BRISA GEMENT OF PATIENT CARE PER NURSING PROTOCOL Performed By: #### L 501.080 ####[facility] [address] [place], [address] FINGERSTICK GLU 268 mg/dL High [address] [place] [address] Comment on above: Result Comment: BRISA GEMENT OF PATIENT CARE PER NURSING PROTOCOL Performed By: #### L 501.080 ####[facility] [address] [place], [address] FINGERSTICK GLU 251 mg/dL High [address] [place] [address] Comment on above: Result Comment: BRISA GEMENT OF PATIENT CARE PER NURSING PROTOCOL Performed By: #### L 501.080 ####[facility] [address] [place], [address] CBC W/Diff, Automatedon 01-02 Absolute Lymph 1.01 X10 3/uL Normal 0.83-4.51 [facility] Comment on above: Performed By: #### L 100.0100 ####[facility] [address] [place], [address] Absolute Neut 5.6 X10 3/uL Normal 2.0-7.7 [facility] Comment on above: Performed By: #### L 100.0100 ####[facility] [address] [place], [address] Basophils/100 WBC (Bld) 0.5 % Normal 0-1 [facility] Comment on above: Performed By: #### L 100.0100 ####[facility] [address] [place], [address] Eosinophils/100 WBC (Bld) 4.6 % Normal 0-5 [facility] Comment on above: Performed By: #### L 100.0100 ####[facility] [address] [place], [address] Erythrocyte distribution width (RBC) [Ratio] 18.6 % High 11.6-14.6 [facility] Comment on above: Performed By: #### L 100.0100 ####[facility] [address] [place], [address] Hematocrit (Bld) [Volume fraction] 21.8 % Low 40-54 [facility] Comment on above: Performed By: #### L 100.0100 ####[facility] [address] [place], [address] Hemoglobin (Bld) [Mass/Vol] 7.4 g/dL Low 13.0-16.5 [facility] Comment on above: Performed By: #### L 100.0100 ####[facility] [address] [place], [address] IG% 0.900 Normal 0.0-0.9 [facility] Comment on above: Result Comment: IG% - Immature Granulocytes (promyelocytes, myelocytes andmetamyelocytes) > 1% indicates that a LEFT SHIFT is Present. Performed By: #### L 100.0100 ####[facility] [address] [place], [address] Lymphocytes/100 WBC (Bld) 12.6 % Low 19-41 [facility] Comment on above: Performed By: #### L 100.0100 ####[facility] [address] [place], [address] MCH (RBC) [Entitic mass] 29.7 pg Normal 27.0-32.0 [facility] Comment on above: Performed By: #### L 100.0100 ####[facility] [address] [place], [address] MCHC (RBC) [Mass/Vol] 33.9 g/dL Normal 32-36 [facility] Comment on above: Performed By: #### L 100.0100 ####[facility] [address] [place], [address] MCV (RBC) [Entitic vol] 87.6 fL Normal 80-94 [facility] Comment on above: Performed By: #### L 100.0100 ####[facility] [address] [place], [address] Monocytes/100 WBC (Bld) 11.8 % High 0-10 [facility] Comment on above: Performed By: #### L 100.0100 ####[facility] [address] [place], [address] Neutrophils/100 WBC (Bld) 69.6 % Normal 47-70 [facility] Comment on above: Performed By: #### L 100.0100 ####[facility] [address] [place], [address] Nucleated RBC (Bld) [#/Vol] 0 10*3/uL Normal 0-5 [facility] Comment on above: Performed By: #### L 100.0100 ####[facility] [address] [place], [address] Platelet mean volume (Bld) [Entitic vol] 12.1 fL High 6.2-12.0 [facility] Comment on above: Performed By: #### L 100.0100 ####[facility] [address] [place], [address] Platelets (Bld) [#/Vol] 130 10*3/uL Low 150-450 [facility] Comment on above: Performed By: #### L 100.0100 ####[facility] [address] [place], [address] RBC (Bld) [#/Vol] 2.49 10*6/uL Low 4.6-6.2 [facility] Comment on above: Performed By: #### L 100.0100 ####[facility] [address] [place], [address] RDW SD 56.7 fl High 35.1-43.9 [facility] Comment on above: Performed By: #### L 100.0100 ####[facility] [address] [place], [address] WBC (Bld) [#/Vol] 8.0 10*3/uL Normal 4.4-11.0 [facility] Comment on above: Performed By: #### L 100.0100 ####[facility] [address] [place], [address] Comprehensive Metabolic Prof ilon 01-11-2025 Albumin [Mass/Vol] 2.2 g/dL Low 3.5-5.0 [facility] Comment on above: Performed By: #### L 100.0100, L500.4050 ####[facility] [address] [place], [address] Albumin/Globulin [Mass ratio] 0.8 {ratio} Low 0.9-2.4 [facility] Comment on above: Performed By: #### L 100.0100, L500.4050 ####[facility] [address] [place], [address] ALK PHOS 314 U/L High 40-129 [facility] Comment on above: Performed By: #### L 100.0100, L500.4050 ####[facility] [address] [place], [address] ALT [Catalytic activity/Vol] 66 U/L High <=46 [facility] Comment on above: Performed By: #### L 100.0100, L500.4050 ####[facility] [address] [place], [address] AST [Catalytic activity/Vol] 137 U/L High <=37 [facility] Comment on above: Result Comment: Hemo lysis present, Results??could be affected.?? Performed By: #### L 100.0100, L500.4050 ####[facility] [address] [place], [address] Bilirubin [Mass/Vol] 2.05 mg/dL High 0.00-1.30 [facility] Comment on above: Performed By: #### L 100.0100, L500.4050 ####[facility] [address] [place], [address] BUN/CRE 13.4 RATIO Normal 10-20 [facility] Comment on above: Performed By: #### L 100.0100, L500.4050 ####[facility] [address] [place], [address] Calcium [Mass/Vol] 7.6 mg/dL Normal 7.6-11.0 [facility] Comment on above: Performed By: #### L 100.0100, L500.4050 ####[facility] [address] [place], [address] Chloride [Moles/Vol] 99 mmol/L Normal 98-108 [facility] Comment on above: Performed By: #### L 100.0100, L500.4050 ####[facility] [address] [place], [address] CO2 [Moles/Vol] 17.3 mmol/L Low 21.0-32.0 [facility] Comment on above: Performed By: #### L 100.0100, L500.4050 ####[facility] [address] [place], [address] Creatinine [Mass/Vol] 1.18 mg/dL Normal 0.70-1.20 [facility] Comment on above: Performed By: #### L 100.0100, L500.4050 ####[facility] [address] [place], [address] ECRCL 78.27 ml/min Normal 50-250 [facility] Comment on above: Performed By: #### L 100.0100, L500.4050 ####[facility] [address] [place], [address] GFR/1.73 sq M.predicted among non-blacks MDRD (S/P/Bld) [Vol rate/Area] 72 mL/min/{1.73_m2} Normal >60 [facility] Comment on above: Result Comment: mL/m in/1.73m2 CKD-EPI Creatinine Equation (2020) Performed By: #### L 100.0100, L500.4050 ####[facility] [address] [place], [address] Globulin (S) [Mass/Vol] 2.8 g/dL Normal 2.2-4.2 [facility] Comment on above: Performed By: #### L 100.0100, L500.4050 ####[facility] [address] [place], [address] Glucose [Mass/Vol] 275 mg/dL High 70-99 [facility] Comment on above: Performed By: #### L 100.0100, L500.4050 ####[facility] [address] [place], [address] Potassium [Moles/Vol] 3.5 mmol/L Normal 3.3-5.1 [facility] Comment on above: Result Comment: Hemo lysis present, Results??could be affected.?? Performed By: #### L 100.0100, L500.4050 ####[facility] [address] [place], [address] Sodium [Moles/Vol] 129 mmol/L Low 133-145 [facility] Comment on above: Performed By: #### L 100.0100, L500.4050 ####[facility] [address] [place], [address] T PROT 5.0 g/dL Low 5.9-8.4 [facility] Comment on above: Performed By: #### L 100.0100, L500.4050 ####[facility] [address] [place], [address] Urea nitrogen [Mass/Vol] 16 mg/dL Normal 4-19 [facility] Comment on above: Performed By: #### L 100.0100, L500.4050 ####[facility] [address] [place], [address] Consultation - Surgicalon Consultation - Surgical Normal [facility] Vancomycin, Random Levelon 0 01-11-2025 VANCO, RANDOM 14.8 ug/mL Normal 0.0-15.0 [facility] Comment on above: Result Comment: VANC OMYCIN STANDARD DRUG THERAPY: CRITICAL VALUE IS > 15.0 mg/LVANCOMYCIN HIGH INTENSITY THERAPY: CRITICAL VALUE IS > 20.0 mg/LPLEASE CONTACT PHARMACY SERVICES (#8690) FOR INTERPRETATIONOF RESULTS. THIS RESULT DOES NOT REPRESENT A PEAK OR TROUGHLEVEL FOR THIS DRUG. Performed By: #### L 501.8850 ####[facility] [address] [place], [address] Absolute lymphocyte countOrd ered By: Breann Mendez on 01-09-2025 Lymphocytes Auto (Unsp spec) [#/Vol] 0.95 10*3/uL 0.83-4.51 [facility] Anion gap in Serum or Plasma Ordered By: Breann Mendez on 01-09-2025 Anion gap [Moles/Vol] 13 mmol/L 5-15 [facility] Automated lymphocyte count a s percentage of total leukocytesOrdered By: Remus Ungbrandon on 01-09-2025 Lymphocytes/100 WBC Auto (Unsp spec) 7.2 % Low 19-41 [facility] BUN/creatinine ratioOrdered By: Remus Ungbrandon on 01-09-2025 Urea nitrogen/Creatinine [Mass ratio] 13.4 mg/mg 10-20 [facility] Basophil percentageOrdered B y: Rem Ungbrandon on 01-09-2025 Basophils/100 WBC (Bld) 0.4 % 0-1 [facility] Bilirubin Test strip Ql (U)O rdered By: Rem Ungbrandon on 01-09-2025 Bilirubin Ql (U) 1 mg/dL High Negative [facility] Bilirubin, totalOrdered By: Rem Ungbrandon on 01-09-2025 Bilirubin [Mass/Vol] 1.15 mg/dL 0.00-1.30 [facility] Blood cultureOrdered By: Rem us Ungbrandon on 01-09-2025 Bacteria identified Cx Nom (Bld) No growth in 5 days. [facility] Bacteria identified Cx Nom (Bld) No growth in 5 days. [facility] CO2 (BldV) [Moles/Vol]Ordere d By: Yaritza Leo on 01-09-2025 CO2 [Moles/Vol] 15 mmol/L Low 23-33 [facility] Carbon dioxide, total [Moles /volume] in Central venous bloodOrdered By: Rem Ungbrandon on 01-09-2025 CO2 [Moles/Vol] 13.6 mmol/L Low 21.0-32.0 [facility] Chloride assayOrdered By: Josselyn Mendez on 01-09-2025 Chloride [Moles/Vol] 103 mmol/L 98-108 [facility] Eosinophil percentageOrdered By: Rem Ungbrandon on 01-09-2025 Eosinophils/100 WBC (Bld) 4.2 % 0-5 [facility] Erythrocyte distribution wid th ratioOrdered By: Rem Ungbrandon on 01-09-2025 Erythrocyte distribution width (RBC) [Ratio] 18.1 % High 11.6-14.6 [facility] Erythrocyte distribution wid th standard deviationOrdered By: Breann Mendez on 01-09-2025 Erythrocyte distribution width (RBC) [Ratio] 57.5 fl High 35.1-43.9 [facility] Glomerular filtration rate ( GFR) estimation/1.73 sq m using serum, plasma, or whole bOrdered By: Breann Mendez on 01-09-2025 GFR/1.73 sq M.predicted among non-blacks MDRD (S/P/Bld) [Vol rate/Area] 44 mL/min/{1.73_m2} Low >60 [facility] Hematocrit Auto (Bld) [Volum e fraction]Ordered By: Breann Mendez on 01-09-2025 Hematocrit (Bld) [Volume fraction] 24.3 % Low 40-54 [facility] Hemoglobin measurementOrdere d By: Breann Mendez on 01-09-2025 Hemoglobin (Bld) [Mass/Vol] 7.9 g/dL Low 13.0-16.5 [facility] Immature granulocytes/100 WB C Auto (Bld)Ordered By: Braenn Mendez on 01-09-2025 Immature granulocytes/100 WBC (Bld) 0.900 % 0.0-0.9 [facility] Ketones Test strip Ql (U)Ord ered By: Breann Mendez on 01-09-2025 Ketones Ql (U) 5 mg/dl High Negative [facility] MCV (mean corpuscular volume ) determinationOrdered By: Breann Mendez on 01-09-2025 MCV (RBC) [Entitic vol] 90.3 fL 80-94 [facility] Mean corpuscular hemoglobin (MCH) determinationOrdered By: Breann Mendez on 01-09-2025 MCH (RBC) [Entitic mass] 29.4 pg 27.0-32.0 [facility] Monocyte percentageOrdered B y: Breann Mendez on 01-09-2025 Monocytes/100 WBC (Bld) 6.7 % 0-10 [facility] Mucus LM Ql (Urine sed)Order ed By: Breann Mendez on 01-09-2025 Mucus Ql (Urine sed) 0 SEEN /hpf [facility] Neutrophil percentageOrdered By: Breann Mendez on 01-09-2025 Neutrophils/100 WBC (Bld) 80.6 % High 47-70 [facility] Nitrite Test strip Ql (U)Ord ered By: Breann Mendez on 01-09-2025 Nitrite Ql (U) Negative Negative [facility] No Panel InformationOrdered By: Yaritza Leo on 01-09-2025 TRAMAINE [facility] Not entered [facility] No Panel InformationOrdered By: Breann Mendez on 01-09-2025 68 U/L High <38 [facility] Platelet countOrdered By: Josselyn Mendez on 01-09-2025 Platelets (Bld) [#/Vol] 114 10*3/uL Low 150-450 [facility] Potassium measurement (mass/ volume)Ordered By: Breann Mendez on 01-09-2025 Potassium (Unsp spec) [Mass/Vol] 3.6 mmol/L 3.3-5.1 [facility] Protein Test strip Ql (U)Ord ered By: Breann Mendez on 01-09-2025 Protein Ql (U) 500 mg/dl High Negative [facility] RBC Auto (Bld) [#/Vol]Ordere d By: Breann Mendez on 01-09-2025 RBC (Bld) [#/Vol] 2.69 10*6/uL Low 4.6-6.2 [facility] Serum creatinine measurement (mass/volume)Ordered By: Breann Mendez on 01-09-2025 Creatinine [Mass/Vol] 1.77 mg/dL High 0.70-1.20 [facility] Serum globulin measurementOr dered By: Breann Mendez on 01-09-2025 Globulin (S) [Mass/Vol] 2.9 g/dL 2.2-4.2 [facility] Serum glucose measurement (m ass/volume)Ordered By: Breann Mendez on 01-09-2025 Glucose [Mass/Vol] 149 mg/dL High 70-99 [facility] Serum or plasma alanine thomas otransferase (ALT) measurementOrdered By: Breann Mendez on 01-09-2025 ALT [Catalytic activity/Vol] 42 U/L <47 [facility] Serum or plasma albumin roosevelt urement (mass/volume)Ordered By: Breann Mendez on 01-09-2025 Albumin [Mass/Vol] 2.4 g/dL Low 3.5-5.0 [facility] Serum or plasma albumin/glob ulin mass ratioOrdered By: Remus Mendez on 01-09-2025 Albumin/Globulin [Mass ratio] 0.8 {ratio} Low 0.9-2.4 [facility] Serum or plasma alkaline kendrick sphatase measurementOrdered By: Remus Mendez on 01-09-2025 ALP [Catalytic activity/Vol] 196 U/L High 40-129 [facility] Serum or plasma calcium roosevelt urement (mass/volume)Ordered By: Remus Mendez on 01-09-2025 Calcium [Mass/Vol] 8.4 mg/dL 7.6-11.0 [facility] Serum or plasma creatine kin ase activityOrdered By: Yaritza Leo on 01-09-2025 CK [Catalytic activity/Vol] 34 U/L 24-195 [facility] Serum or plasma urea nitroge n measurement (mass/volume)Ordered By: Breann Mendez on 01-09-2025 Urea nitrogen [Mass/Vol] 24 mg/dL High 4-19 [facility] Sodium levelOrdered By: Veena Mendez on 01-09-2025 Sodium [Moles/Vol] 129 mmol/L Low 133-145 [facility] Squamous epithelial cells de tection in urine sediment by light microscopyOrdered By: Breann Mendez on 01-09-2025 Epithelial cells.squamous LM Ql (Urine sed) 0-5 SEEN /hpf 0-5 [facility] Total proteinOrdered By: Rem us Mendez on 01-09-2025 Protein [Mass/Vol] 5.3 g/dL Low 5.9-8.4 [facility] Urine clarityOrdered By: Rem us Mendez on 01-09-2025 Clarity (U) Turbid Clear [facility] Urine color determinationOrd ered By: Breann Mendez on 01-09-2025 Color (U) Red Yellow [facility] Urine cultureOrdered By: Rem us Mendez on 01-09-2025 Bacteria identified Cx Nom (U) Yeast, not Mary albicans Abnormal [facility] Urine glucose detectionOrder ed By: Breann Mendez on 01-09-2025 Glucose Ql (U) Normal mg/dl Normal [facility] Urine leukocyte esterase det ection by dipstickOrdered By: Breann Mendez on 01-09-2025 Leukocyte esterase Test strip Ql (U) 500 /ul High Negative [facility] Urine pHOrdered By: Breann Landers gur on 01-09-2025 pH (U) 6.0 [pH] 5.0 - 8.0 [facility] Urine sediment bacteria coun t by microscopy (number/high power field)Ordered By: Breann Mendez on 01-09-2025 Bacteria LM.HPF (Urine sed) [#/Area] 0 /[HPF] None Seen [facility] Urine specific gravity measu rementOrdered By: Breann Mendez on 01-09-2025 Specific gravity (U) [Rel density] 1.015 1.002-1.030 [facility] Urine urobilinogen measureme ntOrdered By: Breann Mendez on 01-09-2025 Urobilinogen Ql (U) Normal mg/dl Normal [facility] Venous blood ammonia measure mentOrdered By: Lupillo Robbins on 01-09-2025 Ammonia (P) [Moles/Vol] 61.1 umol/L High 16-60 [facility] Venous blood base excess wei surementOrdered By: Yaritza Leo on 01-09-2025 Base excess Calc (BldV) [Moles/Vol] -11 mmol/L Low -1.0-3.5 [facility] Venous blood bicarbonate wei surementOrdered By: Yaritza Leo on 01-09-2025 HCO3 (Bld) [Moles/Vol] 14 mmol/L Low 22-26 [facility] Venous blood pH measurementO rdered By: Yaritza Leo on 01-09-2025 pH (BldV) 7.36 [pH] 7.32-7.42 [facility] Venous blood partial pressur e of carbon dioxide measurementOrdered By: Yaritza Leo on 01-09-2025 CO2 (BldV) [Partial pressure] 24.7 mm[Hg] Low 41-51 [facility] Venous blood partial pressur e of oxygen measurementOrdered By: Yaritza Leo on 01-09-2025 Oxygen (BldV) [Partial pressure] 49 mm[Hg] High 25-40 [facility] White blood cell (WBC) count Ordered By: Breann Mendez on 01-09-2025 WBC (Bld) [#/Vol] 13.2 10*3/uL High 4.4-11.0 [facility] White blood cell countOrdere d By: Breann Mendez on 01-09-2025 White blood cell count 50-100 SEEN /hpf 0-5 [facility] Absolute lymphocyte countOrd ered By: Hill Acuña on 01-05-2025 Lymphocytes Auto (Unsp spec) [#/Vol] 0.94 10*3/uL 0.83-4.51 [facility] Anion gap in Serum or Plasma Ordered By: Hill Acuña on 01-05-2025 Anion gap [Moles/Vol] 9 mmol/L 5-15 [facility] Automated lymphocyte count a s percentage of total leukocytesOrdered By: Hill Acuña on 01-05-2025 Lymphocytes/100 WBC Auto (Unsp spec) 13.4 % Low 19-41 [facility] BUN/creatinine ratioOrdered By: Hill Acuña on 01-05-2025 Urea nitrogen/Creatinine [Mass ratio] 11.9 mg/mg 10-20 [facility] Basophil percentageOrdered B y: Hill Acuña on 01-05-2025 Basophils/100 WBC (Bld) 0.4 % 0-1 [facility] Carbon dioxide, total [Moles /volume] in Central venous bloodOrdered By: Hill Acuña on 01-05-2025 CO2 [Moles/Vol] 18.5 mmol/L Low 21.0-32.0 [facility] Chloride assayOrdered By: Kvng Acuña on 01-05-2025 Chloride [Moles/Vol] 101 mmol/L 98-108 [facility] Eosinophil percentageOrdered By: Hill Acuña on 01-05-2025 Eosinophils/100 WBC (Bld) 5.1 % High 0-5 [facility] Erythrocyte distribution wid th ratioOrdered By: Hill Acuña on 01-05-2025 Erythrocyte distribution width (RBC) [Ratio] 16.4 % High 11.6-14.6 [facility] Erythrocyte distribution wid th standard deviationOrdered By: Hill Acuña on 01-05-2025 Erythrocyte distribution width (RBC) [Ratio] 51.8 fl High 35.1-43.9 [facility] Glomerular filtration rate ( GFR) estimation/1.73 sq m using serum, plasma, or whole bOrdered By: Hill Acuña on 01-05-2025 GFR/1.73 sq M.predicted among non-blacks MDRD (S/P/Bld) [Vol rate/Area] 92 mL/min/{1.73_m2} >60 [facility] deOrdered By: Hill Acuña on 01-05-2025 Glucose [Mass/Vol] 163 mg/dL High 74-106 [facility] Glucose [Mass/Vol] 191 mg/dL High 74-106 [facility] Hematocrit Auto (Bld) [Volum e fraction]Ordered By: Hill Acuña on 01-05-2025 Hematocrit (Bld) [Volume fraction] 22.3 % Low 40-54 [facility] Hemoglobin measurementOrdere d By: Hill Acuña on 01-05-2025 Hemoglobin (Bld) [Mass/Vol] 7.5 g/dL Low 13.0-16.5 [facility] Immature granulocytes/100 WB C Auto (Bld)Ordered By: Hill Acuña on 01-05-2025 Immature granulocytes/100 WBC (Bld) 0.400 % 0.0-0.9 [facility] MCV (mean corpuscular volume ) determinationOrdered By: Hill Acuña on 01-05-2025 MCV (RBC) [Entitic vol] 86.4 fL 80-94 [facility] Mean corpuscular hemoglobin (MCH) determinationOrdered By: Hill Acuña on 01-05-2025 MCH (RBC) [Entitic mass] 29.1 pg 27.0-32.0 [facility] Monocyte percentageOrdered B y: Hill Acuña on 01-05-2025 Monocytes/100 WBC (Bld) 11.6 % High 0-10 [facility] Neutrophil percentageOrdered By: Hill Acuña on 01-05-2025 Neutrophils/100 WBC (Bld) 69.1 % 47-70 [facility] Platelet countOrdered By: Kvng Acuña on 01-05-2025 Platelets (Bld) [#/Vol] 81 10*3/uL Low 150-450 [facility] Potassium measurement (mass/ volume)Ordered By: Hill Acuña on 01-05-2025 Potassium (Unsp spec) [Mass/Vol] 3.6 mmol/L 3.3-5.1 [facility] RBC Auto (Bld) [#/Vol]Ordere d By: Hill Acuña on 01-05-2025 RBC (Bld) [#/Vol] 2.58 10*6/uL Low 4.6-6.2 [facility] Serum creatinine measurement (mass/volume)Ordered By: Hill Acuña on 01-05-2025 Creatinine [Mass/Vol] 0.95 mg/dL 0.70-1.20 [facility] Serum glucose measurement (m ass/volume)Ordered By: Hill Acuña on 01-05-2025 Glucose [Mass/Vol] 356 mg/dL High 70-99 [facility] Serum or plasma calcium roosevelt urement (mass/volume)Ordered By: Hill Acuña on 01-05-2025 Calcium [Mass/Vol] 7.9 mg/dL 7.6-11.0 [facility] Serum or plasma urea nitroge n measurement (mass/volume)Ordered By: Hill Acuña on 01-05-2025 Urea nitrogen [Mass/Vol] 11 mg/dL 4-19 [facility] Sodium levelOrdered By: Paulino Acuña on 01-05-2025 Sodium [Moles/Vol] 128 mmol/L Low 133-145 [facility] White blood cell (WBC) count Ordered By: Hill Acuña on 01-05-2025 WBC (Bld) [#/Vol] 7.0 10*3/uL 4.4-11.0 [facility] Bilirubin, totalOrdered By: Hill Acuña on 01-04-2025 Bilirubin [Mass/Vol] 0.90 mg/dL 0.00-1.30 [facility] Blood manual differential co mment interpretation (narrative result)Ordered By: Hill Acuña on 01-04-2025 Manual differential comment Marco Antonio (Bld) [Interp] SCANNED [facility] Magnesium measurement (mass/ volume)Ordered By: Hill Acuña on 01-04-2025 Magnesium (Unsp spec) [Mass/Vol] 1.3 mg/dL Low 1.5-2.2 [facility] No Panel InformationOrdered By: Hill Acuña on 01-04-2025 54 U/L High <38 [facility] Serum globulin measurementOr dered By: Hill Acuña on 01-04-2025 Globulin (S) [Mass/Vol] 2.9 g/dL 2.2-4.2 [facility] Serum or plasma alanine thomas otransferase (ALT) measurementOrdered By: Hill Acuña on 01-04-2025 ALT [Catalytic activity/Vol] 26 U/L <47 [facility] Serum or plasma albumin roosevelt urement (mass/volume)Ordered By: Hill Acuña on 01-04-2025 Albumin [Mass/Vol] 2.4 g/dL Low 3.5-5.0 [facility] Serum or plasma albumin/glob ulin mass ratioOrdered By: Hill Acuña on 01-04-2025 Albumin/Globulin [Mass ratio] 0.9 {ratio} 0.9-2.4 [facility] Serum or plasma alkaline kendrick sphatase measurementOrdered By: Hill Acuña on 01-04-2025 ALP [Catalytic activity/Vol] 171 U/L High 40-129 [facility] Total proteinOrdered By: Hugo Acuña on 01-04-2025 Protein [Mass/Vol] 5.3 g/dL Low 5.9-8.4 [facility] Absolute lymphocyte countOrd ered By: Roddy Reeves on 01-02-2025 Lymphocytes Auto (Unsp spec) [#/Vol] 1.55 10*3/uL 0.83-4.51 [facility] Anion gap in Serum or Plasma Ordered By: Roddy Reeves on 01-02-2025 Anion gap [Moles/Vol] 17 mmol/L High 5-15 [facility] Automated lymphocyte count a s percentage of total leukocytesOrdered By: Roddy Reeves on 01-02-2025 Lymphocytes/100 WBC Auto (Unsp spec) 12.2 % Low 19-41 [facility] BUN/creatinine ratioOrdered By: Roddy Reeves on 01-02-2025 Urea nitrogen/Creatinine [Mass ratio] 12.9 mg/mg 10-20 [facility] Basophil percentageOrdered B y: Roddy Reeves on 01-02-2025 Basophils/100 WBC (Bld) 0.4 % 0-1 [facility] Bilirubin Test strip Ql (U)O rdered By: Roddy Reeves on 01-02-2025 Bilirubin Ql (U) Negative Negative [facility] Bilirubin, totalOrdered By: Roddy Reeves on 01-02-2025 Bilirubin [Mass/Vol] 0.90 mg/dL 0.00-1.30 [facility] Carbon dioxide, total [Moles /volume] in Central venous bloodOrdered By: Roddy Reeves on 01-02-2025 CO2 [Moles/Vol] 19.6 mmol/L Low 21.0-32.0 [facility] Chloride assayOrdered By: Catrachito Reeves on 01-02-2025 Chloride [Moles/Vol] 95 mmol/L Low 98-108 [facility] Eosinophil percentageOrdered By: Roddy Reeves on 01-02-2025 Eosinophils/100 WBC (Bld) 6.9 % High 0-5 [facility] Erythrocyte distribution wid th ratioOrdered By: Roddy Reeves on 01-02-2025 Erythrocyte distribution width (RBC) [Ratio] 16.4 % High 11.6-14.6 [facility] Erythrocyte distribution wid th standard deviationOrdered By: Roddy Reeves on 01-02-2025 Erythrocyte distribution width (RBC) [Ratio] 51.1 fl High 35.1-43.9 [facility] Glomerular filtration rate ( GFR) estimation/1.73 sq m using serum, plasma, or whole bOrdered By: Roddy Reeves on 01-02-2025 GFR/1.73 sq M.predicted among non-blacks MDRD (S/P/Bld) [Vol rate/Area] 19 mL/min/{1.73_m2} Low >60 [facility] Hematocrit Auto (Bld) [Volum e fraction]Ordered By: Roddy Reeves on 01-02-2025 Hematocrit (Bld) [Volume fraction] 28.0 % Low 40-54 [facility] Hemoglobin measurementOrdere d By: Roddy Reeves on 01-02-2025 Hemoglobin (Bld) [Mass/Vol] 9.5 g/dL Low 13.0-16.5 [facility] Immature granulocytes/100 WB C Auto (Bld)Ordered By: Roddy Reeves on 01-02-2025 Immature granulocytes/100 WBC (Bld) 0.600 % 0.0-0.9 [facility] Ketones Test strip Ql (U)Ord ered By: Roddy Reeves on 01-02-2025 Ketones Ql (U) 5 mg/dl High Negative [facility] MCV (mean corpuscular volume ) determinationOrdered By: Roddy Reeves on 01-02-2025 MCV (RBC) [Entitic vol] 87.2 fL 80-94 [facility] Magnesium measurement (mass/ volume)Ordered By: Roddy Reeves on 01-02-2025 Magnesium (Unsp spec) [Mass/Vol] 2.0 mg/dL 1.5-2.2 [facility] Mean corpuscular hemoglobin (MCH) determinationOrdered By: Roddy Reeves on 01-02-2025 MCH (RBC) [Entitic mass] 29.6 pg 27.0-32.0 [facility] Monocyte percentageOrdered B y: Roddy Reeves on 01-02-2025 Monocytes/100 WBC (Bld) 11.9 % High 0-10 [facility] Mucus LM Ql (Urine sed)Order ed By: Roddy Reeves on 01-02-2025 Mucus Ql (Urine sed) 0 SEEN /hpf [facility] Neutrophil percentageOrdered By: Roddy Reeves on 01-02-2025 Neutrophils/100 WBC (Bld) 68.0 % 47-70 [facility] Nitrite Test strip Ql (U)Ord ered By: Roddy Reeves on 01-02-2025 Nitrite Ql (U) Negative Negative [facility] No Panel InformationOrdered By: Roddy Reeves on 01-02-2025 37 U/L <38 [facility] Platelet countOrdered By: Catrachito Reeves on 01-02-2025 Platelets (Bld) [#/Vol] 171 10*3/uL 150-450 [facility] Potassium measurement (mass/ volume)Ordered By: Roddy Reeves on 01-02-2025 Potassium (Unsp spec) [Mass/Vol] 2.6 mmol/L Low 3.3-5.1 [facility] Protein Test strip Ql (U)Ord ered By: Roddy Reeves on 01-02-2025 Protein Ql (U) 100 mg/dl High Negative [facility] RBC Auto (Bld) [#/Vol]Ordere d By: Roddy Reeves on 01-02-2025 RBC (Bld) [#/Vol] 3.21 10*6/uL Low 4.6-6.2 [facility] Serum creatinine measurement (mass/volume)Ordered By: Roddy Reeves on 01-02-2025 Creatinine [Mass/Vol] 3.54 mg/dL High 0.70-1.20 [facility] Serum globulin measurementOr dered By: Roddy Reeves on 01-02-2025 Globulin (S) [Mass/Vol] 3.4 g/dL 2.2-4.2 [facility] Serum glucose measurement (m ass/volume)Ordered By: Roddy Reeves on 01-02-2025 Glucose [Mass/Vol] 164 mg/dL High 70-99 [facility] Serum or plasma alanine thomas otransferase (ALT) measurementOrdered By: Roddy Reeves on 01-02-2025 ALT [Catalytic activity/Vol] 23 U/L <47 [facility] Serum or plasma albumin roosevelt urement (mass/volume)Ordered By: Roddy Reeves on 01-02-2025 Albumin [Mass/Vol] 2.8 g/dL Low 3.5-5.0 [facility] Serum or plasma albumin/glob ulin mass ratioOrdered By: Roddy Reeves on 01-02-2025 Albumin/Globulin [Mass ratio] 0.8 {ratio} Low 0.9-2.4 [facility] Serum or plasma alkaline kendrick sphatase measurementOrdered By: Roddy Reeves on 01-02-2025 ALP [Catalytic activity/Vol] 191 U/L High 40-129 [facility] Serum or plasma calcium roosevelt urement (mass/volume)Ordered By: Roddy Reeves on 01-02-2025 Calcium [Mass/Vol] 9.0 mg/dL 7.6-11.0 [facility] Serum or plasma ethanol roosevelt urement (mass/volume)Ordered By: Roddy Reeves on 01-02-2025 Ethanol [Mass/Vol] mg/dL <10.1 [facility] Serum or plasma urea nitroge n measurement (mass/volume)Ordered By: Roddy Reeves on 01-02-2025 Urea nitrogen [Mass/Vol] 46 mg/dL High 4-19 [facility] Sodium levelOrdered By: Valentín Reeves on 01-02-2025 Sodium [Moles/Vol] 132 mmol/L Low 133-145 [facility] Squamous epithelial cells de tection in urine sediment by light microscopyOrdered By: Roddy Reeves on 01-02-2025 Epithelial cells.squamous LM Ql (Urine sed) 0 SEEN /hpf 0-5 [facility] Total proteinOrdered By: Zoila Reeves on 01-02-2025 Protein [Mass/Vol] 6.1 g/dL 5.9-8.4 [facility] Urine clarityOrdered By: Zoila Reeves on 01-02-2025 Clarity (U) Turbid Clear [facility] Urine color determinationOrd ered By: Roddy Reeves on 01-02-2025 Color (U) Red Yellow [facility] Urine cultureOrdered By: Zoila Reeves on 01-02-2025 Bacteria identified Cx Nom (U) Yeast, not Mary albicans Abnormal [facility] Urine glucose detectionOrder ed By: Roddy Reeves on 01-02-2025 Glucose Ql (U) Normal mg/dl Normal [facility] Urine leukocyte esterase det ection by dipstickOrdered By: Roddy Reeves on 01-02-2025 Leukocyte esterase Test strip Ql (U) 500 /ul High Negative [facility] Urine pHOrdered By: Roddy gonzalez on 01-02-2025 pH (U) 6.0 [pH] 5.0 - 8.0 [facility] Urine sediment bacteria coun t by microscopy (number/high power field)Ordered By: Roddy Reeves on 01-02-2025 Bacteria LM.HPF (Urine sed) [#/Area] 3 /[HPF] None Seen [facility] Urine specific gravity measu rementOrdered By: Roddy Reeves on 01-02-2025 Specific gravity (U) [Rel density] 1.015 1.002-1.030 [facility] Urine urobilinogen measureme ntOrdered By: Roddy Reeves on 01-02-2025 Urobilinogen Ql (U) Normal mg/dl Normal [facility] Venous blood ammonia measure mentOrdered By: Roddy Reeves on 01-02-2025 Ammonia (P) [Moles/Vol] 40.4 umol/L 16-60 [facility] White blood cell (WBC) count Ordered By: Roddy Reeves on 01-02-2025 WBC (Bld) [#/Vol] 12.7 10*3/uL High 4.4-11.0 [facility] White blood cell countOrdere d By: Roddy Reeves on 01-02-2025 White blood cell count 25-50 SEEN /hpf 0-5 [facility] Absolute lymphocyte countOrd ered By: Mina Blood on 12-30-2024 Lymphocytes Auto (Unsp spec) [#/Vol] 1.31 10*3/uL 0.83-4.51 [facility] Anion gap in Serum or Plasma Ordered By: Mina Blood on 12-30-2024 Anion gap [Moles/Vol] 15 mmol/L 5-15 [facility] Automated lymphocyte count a s percentage of total leukocytesOrdered By: Mina Blood on 12-30-2024 Lymphocytes/100 WBC Auto (Unsp spec) 14.0 % Low 19-41 [facility] BUN/creatinine ratioOrdered By: Mina Blood on 12-30-2024 Urea nitrogen/Creatinine [Mass ratio] 14.1 mg/mg 10-20 [facility] Basophil percentageOrdered B y: Mina Blood on 12-30-2024 Basophils/100 WBC (Bld) 0.4 % 0-1 [facility] Bilirubin Test strip Ql (U)O rdered By: Mina Blood on 12-30-2024 Bilirubin Ql (U) Negative Negative [facility] Carbon dioxide, total [Moles /volume] in Central venous bloodOrdered By: Mina Blood on 12-30-2024 CO2 [Moles/Vol] 22.1 mmol/L 21.0-32.0 [facility] Chloride assayOrdered By: Marcella Blood on 12-30-2024 Chloride [Moles/Vol] 91 mmol/L Low 98-108 [facility] Eosinophil percentageOrdered By: Mina Blood on 12-30-2024 Eosinophils/100 WBC (Bld) 6.2 % High 0-5 [facility] Erythrocyte distribution wid th ratioOrdered By: Mina Blood on 12-30-2024 Erythrocyte distribution width (RBC) [Ratio] 16.1 % High 11.6-14.6 [facility] Erythrocyte distribution wid th standard deviationOrdered By: Mina Blood on 12-30-2024 Erythrocyte distribution width (RBC) [Ratio] 50.9 fl High 35.1-43.9 [facility] Glomerular filtration rate ( GFR) estimation/1.73 sq m using serum, plasma, or whole bOrdered By: Mina Blood on 12-30-2024 GFR/1.73 sq M.predicted among non-blacks MDRD (S/P/Bld) [Vol rate/Area] 37 mL/min/{1.73_m2} Low >60 [facility] deOrdered By: Mina Blood on 12-30-2024 Glucose [Mass/Vol] 453 mg/dL High 74-106 [facility] Hematocrit Auto (Bld) [Volum e fraction]Ordered By: Mina Blood on 12-30-2024 Hematocrit (Bld) [Volume fraction] 25.8 % Low 40-54 [facility] Hemoglobin measurementOrdere d By: Mina Blood on 12-30-2024 Hemoglobin (Bld) [Mass/Vol] 8.7 g/dL Low 13.0-16.5 [facility] Immature granulocytes/100 WB C Auto (Bld)Ordered By: Mina Blood on 12-30-2024 Immature granulocytes/100 WBC (Bld) 0.600 % 0.0-0.9 [facility] Ketones Test strip Ql (U)Ord ered By: Mina Blood on 12-30-2024 Ketones Ql (U) Negative Negative [facility] MCV (mean corpuscular volume ) determinationOrdered By: Mina Blood on 12-30-2024 MCV (RBC) [Entitic vol] 88.1 fL 80-94 [facility] Magnesium measurement (mass/ volume)Ordered By: Mina Blood on 12-30-2024 Magnesium (Unsp spec) [Mass/Vol] 1.3 mg/dL Low 1.5-2.2 [facility] Mean corpuscular hemoglobin (MCH) determinationOrdered By: Mina Blood on 12-30-2024 MCH (RBC) [Entitic mass] 29.7 pg 27.0-32.0 [facility] Monocyte percentageOrdered B y: Mina Blood on 12-30-2024 Monocytes/100 WBC (Bld) 9.1 % 0-10 [facility] Mucus LM Ql (Urine sed)Order ed By: Mina Blood on 12-30-2024 Mucus Ql (Urine sed) 0 SEEN /hpf [facility] Neutrophil percentageOrdered By: Mina Blood on 12-30-2024 Neutrophils/100 WBC (Bld) 69.7 % 47-70 [facility] Nitrite Test strip Ql (U)Ord ered By: Mina Blood on 12-30-2024 Nitrite Ql (U) Negative Negative [facility] Platelet countOrdered By: Marcella Blood on 12-30-2024 Platelets (Bld) [#/Vol] 131 10*3/uL Low 150-450 [facility] Potassium measurement (mass/ volume)Ordered By: Mina Blood on 12-30-2024 Potassium (Unsp spec) [Mass/Vol] 3.2 mmol/L Low 3.3-5.1 [facility] Protein Test strip Ql (U)Ord ered By: Mina Blood on 12-30-2024 Protein Ql (U) 100 mg/dl High Negative [facility] RBC Auto (Bld) [#/Vol]Ordere d By: Mina Blood on 12-30-2024 RBC (Bld) [#/Vol] 2.93 10*6/uL Low 4.6-6.2 [facility] Serum creatinine measurement (mass/volume)Ordered By: Mina Blood on 12-30-2024 Creatinine [Mass/Vol] 2.05 mg/dL High 0.70-1.20 [facility] Serum glucose measurement (m ass/volume)Ordered By: Mina Blood on 12-30-2024 Glucose [Mass/Vol] 608 mg/dL High 70-99 [facility] Serum or plasma calcium roosevelt urement (mass/volume)Ordered By: Mina Blood on 12-30-2024 Calcium [Mass/Vol] 9.1 mg/dL 7.6-11.0 [facility] Serum or plasma urea nitroge n measurement (mass/volume)Ordered By: Mina Blood on 12-30-2024 Urea nitrogen [Mass/Vol] 29 mg/dL High 4-19 [facility] Sodium levelOrdered By: Magen Blood on 12-30-2024 Sodium [Moles/Vol] 128 mmol/L Low 133-145 [facility] Squamous epithelial cells de tection in urine sediment by light microscopyOrdered By: Mina Blood on 12-30-2024 Epithelial cells.squamous LM Ql (Urine sed) 0-5 SEEN /hpf 0-5 [facility] Transitional cells detection in urine sediment by light microscopyOrdered By: Mina Blood on 12-30-2024 Transitional cells LM Ql (Urine sed) 0-5 SEEN /hpf 0-5 [facility] Troponin T.cardiac [Mass/vol ume] in Serum or Plasma by High sensitivity methodOrdered By: Mina Blood on 12-30-2024 Troponin T.cardiac High sensitivity method [Mass/Vol] 20 ng/L <22 [facility] Troponin T.cardiac High sensitivity method [Mass/Vol] 19 ng/L <22 [facility] Urine clarityOrdered By: Ever Blood on 12-30-2024 Clarity (U) Cloudy Clear [facility] Urine color determinationOrd ered By: Mina Blood on 12-30-2024 Color (U) Lexis Yellow [facility] Urine cultureOrdered By: Ever Blood on 12-30-2024 Bacteria identified Cx Nom (U) GPC Poss Enterococcus sp Abnormal [facility] Bacteria identified Cx Nom (U) Positive Abnormal [facility] Urine glucose detectionOrder ed By: Mina Blood on 12-30-2024 Glucose Ql (U) 1000 mg/dl High Normal [facility] Urine leukocyte esterase det ection by dipstickOrdered By: Mina Blood on 12-30-2024 Leukocyte esterase Test strip Ql (U) 500 /ul High Negative [facility] Urine pHOrdered By: Mina ferrer on 12-30-2024 pH (U) 6.5 [pH] 5.0 - 8.0 [facility] Urine sediment bacteria coun t by microscopy (number/high power field)Ordered By: Mina Blood on 12-30-2024 Bacteria LM.HPF (Urine sed) [#/Area] 1 /[HPF] None Seen [facility] Urine specific gravity measu rementOrdered By: Mina Blood on 12-30-2024 Specific gravity (U) [Rel density] 1.010 1.002-1.030 [facility] Urine urobilinogen measureme ntOrdered By: Mina Blood on 12-30-2024 Urobilinogen Ql (U) Normal mg/dl Normal [facility] White blood cell (WBC) count Ordered By: Mina Blood on 12-30-2024 WBC (Bld) [#/Vol] 9.4 10*3/uL 4.4-11.0 [facility] White blood cell countOrdere d By: Mina Blood on 12-30-2024 White blood cell count >100 SEEN /hpf 0-5 [facility] Absolute lymphocyte countOrd ered By: Boone Carvajal on 12-26-2024 Lymphocytes Auto (Unsp spec) [#/Vol] 1.69 10*3/uL 0.83-4.51 [facility] Activated partial thrombopla stin time (aPTT) in platelet poor plasma by coagulation aOrdered By: Boone Carvajal on 12-26-2024 aPTT Coag (PPP) [Time] 36.3 s High 24.1-36.2 [facility] Anion gap in Serum or Plasma Ordered By: Boone Carvajal on 12-26-2024 Anion gap [Moles/Vol] 14 mmol/L 5-15 [facility] Automated lymphocyte count a s percentage of total leukocytesOrdered By: Boone Carvajal on 12-26-2024 Lymphocytes/100 WBC Auto (Unsp spec) 15.3 % Low 19-41 [facility] BUN/creatinine ratioOrdered By: Boone Carvajal on 12-26-2024 Urea nitrogen/Creatinine [Mass ratio] 10.3 mg/mg 10-20 [facility] Basophil percentageOrdered B y: Boone Carvajal on 12-26-2024 Basophils/100 WBC (Bld) 0.5 % 0-1 [facility] Beta-hydroxybutyrateOrdered By: Boone Carvajal on 12-26-2024 Beta hydroxybutyrate [Mass/Vol] 0.1 mmol/L 0.0-0.3 [facility] Bilirubin Test strip Ql (U)O rdered By: Boone Carvajal on 12-26-2024 Bilirubin Ql (U) Negative Negative [facility] Bilirubin, totalOrdered By: Boone Carvajal on 12-26-2024 Bilirubin [Mass/Vol] 1.04 mg/dL 0.00-1.30 [facility] Carbon dioxide, total [Moles /volume] in Central venous bloodOrdered By: Boone Carvajal on 12-26-2024 CO2 [Moles/Vol] 20.4 mmol/L Low 21.0-32.0 [facility] Chloride assayOrdered By: Hunter Carvajal on 12-26-2024 Chloride [Moles/Vol] 100 mmol/L 98-108 [facility] Eosinophil percentageOrdered By: Boone Carvajal on 12-26-2024 Eosinophils/100 WBC (Bld) 5.8 % High 0-5 [facility] Erythrocyte distribution wid th ratioOrdered By: Boone Carvajal on 12-26-2024 Erythrocyte distribution width (RBC) [Ratio] 16.3 % High 11.6-14.6 [facility] Erythrocyte distribution wid th standard deviationOrdered By: Boone Carvajal on 12-26-2024 Erythrocyte distribution width (RBC) [Ratio] 54.4 fl High 35.1-43.9 [facility] Glomerular filtration rate ( GFR) estimation/1.73 sq m using serum, plasma, or whole bOrdered By: Boone Carvajal on 12-26-2024 GFR/1.73 sq M.predicted among non-blacks MDRD (S/P/Bld) [Vol rate/Area] 30 mL/min/{1.73_m2} Low >60 [facility] Hematocrit Auto (Bld) [Volum e fraction]Ordered By: Boone Carvajal on 12-26-2024 Hematocrit (Bld) [Volume fraction] 29.6 % Low 40-54 [facility] Hemoglobin measurementOrdere d By: Boone Carvajal on 12-26-2024 Hemoglobin (Bld) [Mass/Vol] 9.6 g/dL Low 13.0-16.5 [facility] Immature granulocytes/100 WB C Auto (Bld)Ordered By: Boone Carvajal on 12-26-2024 Immature granulocytes/100 WBC (Bld) 0.500 % 0.0-0.9 [facility] Ketones Test strip Ql (U)Ord ered By: Boone Carvajal on 12-26-2024 Ketones Ql (U) 5 mg/dl High Negative [facility] MCV (mean corpuscular volume ) determinationOrdered By: Boone Carvajal on 12-26-2024 MCV (RBC) [Entitic vol] 90.8 fL 80-94 [facility] Mean corpuscular hemoglobin (MCH) determinationOrdered By: Boone Carvajal on 12-26-2024 MCH (RBC) [Entitic mass] 29.4 pg 27.0-32.0 [facility] Monocyte percentageOrdered B y: Boone Carvajal on 12-26-2024 Monocytes/100 WBC (Bld) 7.4 % 0-10 [facility] Mucus LM Ql (Urine sed)Order ed By: Boone Carvajal on 12-26-2024 Mucus Ql (Urine sed) 0 SEEN /hpf [facility] Neutrophil percentageOrdered By: Boone Carvajal on 12-26-2024 Neutrophils/100 WBC (Bld) 70.5 % High 47-70 [facility] Nitrite Test strip Ql (U)Ord ered By: Boone Carvajal on 12-26-2024 Nitrite Ql (U) Negative Negative [facility] No Panel InformationOrdered By: Boone Carvajal on 12-26-2024 58 U/L High <38 [facility] Platelet countOrdered By: Hunter Carvajal on 12-26-2024 Platelets (Bld) [#/Vol] 139 10*3/uL Low 150-450 [facility] Potassium measurement (mass/ volume)Ordered By: Boone Carvajal on 12-26-2024 Potassium (Unsp spec) [Mass/Vol] 3.5 mmol/L 3.3-5.1 [facility] Protein Test strip Ql (U)Ord ered By: Boone Carvajal on 12-26-2024 Protein Ql (U) 500 mg/dl High Negative [facility] Prothrombin timeOrdered By: Boone Carvajal on 12-26-2024 PT Coag (PPP) [Time] 18.5 s High 11.7-14.9 [facility] RBC Auto (Bld) [#/Vol]Ordere d By: Boone Carvajal on 12-26-2024 RBC (Bld) [#/Vol] 3.26 10*6/uL Low 4.6-6.2 [facility] Serum creatinine measurement (mass/volume)Ordered By: Boone Carvajal on 12-26-2024 Creatinine [Mass/Vol] 2.42 mg/dL High 0.70-1.20 [facility] Serum globulin measurementOr dered By: Boone Carvajal on 12-26-2024 Globulin (S) [Mass/Vol] 3.5 g/dL 2.2-4.2 [facility] Serum glucose measurement (m ass/volume)Ordered By: Boone Carvajal on 12-26-2024 Glucose [Mass/Vol] 386 mg/dL High 70-99 [facility] Serum or plasma alanine thomas otransferase (ALT) measurementOrdered By: Boone Carvajal on 12-26-2024 ALT [Catalytic activity/Vol] 27 U/L <47 [facility] Serum or plasma albumin roosevelt urement (mass/volume)Ordered By: Boone Carvajal on 12-26-2024 Albumin [Mass/Vol] 2.8 g/dL Low 3.5-5.0 [facility] Serum or plasma albumin/glob ulin mass ratioOrdered By: Boone Carvajal on 12-26-2024 Albumin/Globulin [Mass ratio] 0.8 {ratio} Low 0.9-2.4 [facility] Serum or plasma alkaline kendrick sphatase measurementOrdered By: Boone Carvajal on 12-26-2024 ALP [Catalytic activity/Vol] 207 U/L High 40-129 [facility] Serum or plasma calcium roosevelt urement (mass/volume)Ordered By: Boone Carvajal on 12-26-2024 Calcium [Mass/Vol] 8.9 mg/dL 7.6-11.0 [facility] Serum or plasma urea nitroge n measurement (mass/volume)Ordered By: Boone Carvajal on 12-26-2024 Urea nitrogen [Mass/Vol] 25 mg/dL High 4-19 [facility] Sodium levelOrdered By: Boone Carvajal on 12-26-2024 Sodium [Moles/Vol] 135 mmol/L 133-145 [facility] Squamous epithelial cells de tection in urine sediment by light microscopyOrdered By: Boone Carvajal on 12-26-2024 Epithelial cells.squamous LM Ql (Urine sed) 0 SEEN /hpf 0-5 [facility] Total proteinOrdered By: Danita Carvajal on 12-26-2024 Protein [Mass/Vol] 6.3 g/dL 5.9-8.4 [facility] Urine clarityOrdered By: Danita Carvajal on 12-26-2024 Clarity (U) Cloudy Clear [facility] Urine color determinationOrd ered By: Boone Carvajal on 12-26-2024 Color (U) Lexis Yellow [facility] Urine cultureOrdered By: Danita Carvajal on 12-26-2024 Bacteria identified Cx Nom (U) Enterococcus faecalis Abnormal [facility] Bacteria identified Cx Nom (U) GNR lactose obgyn specialist Abnormal [facility] Urine glucose detectionOrder ed By: Boone Carvajal on 12-26-2024 Glucose Ql (U) Normal mg/dl Normal [facility] Urine leukocyte esterase det ection by dipstickOrdered By: Boone Carvajal on 12-26-2024 Leukocyte esterase Test strip Ql (U) 500 /ul High Negative [facility] Urine pHOrdered By: Boone romo on 12-26-2024 pH (U) 6.0 [pH] 5.0 - 8.0 [facility] Urine sediment bacteria coun t by microscopy (number/high power field)Ordered By: Boone Carvajal on 12-26-2024 Bacteria LM.HPF (Urine sed) [#/Area] 0 /[HPF] None Seen [facility] Urine specific gravity measu rementOrdered By: Boone Carvajal on 12-26-2024 Specific gravity (U) [Rel density] 1.015 1.002-1.030 [facility] Urine urobilinogen measureme ntOrdered By: Boone Carvajal on 12-26-2024 Urobilinogen Ql (U) Normal mg/dl Normal [facility] Venous blood ammonia measure mentOrdered By: Boone Carvajal on 12-26-2024 Ammonia (P) [Moles/Vol] 114.0 umol/L High 16-60 [facility] White blood cell (WBC) count Ordered By: Boone Carvajal on 12-26-2024 WBC (Bld) [#/Vol] 11.0 10*3/uL 4.4-11.0 [facility] White blood cell countOrdere d By: Boone Carvajal on 12-26-2024 White blood cell count 25-50 SEEN /hpf 0-5 [facility] Absolute lymphocyte countOrd ered By: Josy Elias on 12-07-2024 Lymphocytes Auto (Unsp spec) [#/Vol] 1.71 10*3/uL 0.83-4.51 [facility] Anion gap in Serum or Plasma Ordered By: Josy Elias on 12-07-2024 Anion gap [Moles/Vol] 12 mmol/L 5-15 [facility] Automated lymphocyte count a s percentage of total leukocytesOrdered By: Josy Elias on 12-07-2024 Lymphocytes/100 WBC Auto (Unsp spec) 18.4 % Low 19-41 [facility] BUN/creatinine ratioOrdered By: Josy Elias on 12-07-2024 Urea nitrogen/Creatinine [Mass ratio] 10.0 mg/mg 10-20 [facility] Basophil percentageOrdered B y: Josy Elias on 12-07-2024 Basophils/100 WBC (Bld) 0.6 % 0-1 [facility] Bilirubin, totalOrdered By: Josy Elias on 12-07-2024 Bilirubin [Mass/Vol] 1.21 mg/dL 0.00-1.30 [facility] CNPTOUTREACHon 12-07-2024 CNPTOUTREACH Normal [facility] Carbon dioxide, total [Moles /volume] in Central venous bloodOrdered By: Josy Elias on 12-07-2024 CO2 [Moles/Vol] 20.0 mmol/L Low 21.0-32.0 [facility] Chloride assayOrdered By: Monica Elias on 12-07-2024 Chloride [Moles/Vol] 103 mmol/L 98-108 [facility] Eosinophil percentageOrdered By: Josy Elias on 12-07-2024 Eosinophils/100 WBC (Bld) 5.1 % High 0-5 [facility] Erythrocyte distribution wid th ratioOrdered By: Josy Elias on 12-07-2024 Erythrocyte distribution width (RBC) [Ratio] 16.9 % High 11.6-14.6 [facility] Erythrocyte distribution wid th standard deviationOrdered By: Josy Elias on 12-07-2024 Erythrocyte distribution width (RBC) [Ratio] 57.4 fl High 35.1-43.9 [facility] Gamma glutamyl transferase ( GGT) measurementOrdered By: Josy Elias on 12-07-2024 Amylase [Catalytic activity/Vol] 103 U/L High 0-65 [facility] Glomerular filtration rate ( GFR) estimation/1.73 sq m using serum, plasma, or whole bOrdered By: Josy Elias on 12-07-2024 GFR/1.73 sq M.predicted among non-blacks MDRD (S/P/Bld) [Vol rate/Area] 44 mL/min/{1.73_m2} Low >60 [facility] Hematocrit Auto (Bld) [Volum e fraction]Ordered By: Josy Elias on 12-07-2024 Hematocrit (Bld) [Volume fraction] 26.2 % Low 40-54 [facility] Hemoglobin A1c percentageOrd ered By: Josy Elias on 12-07-2024 HbA1c (Bld) [Mass fraction] 7.2 % High <5.7 [facility] Hemoglobin measurementOrdere d By: Josy Elias on 12-07-2024 Hemoglobin (Bld) [Mass/Vol] 8.5 g/dL Low 13.0-16.5 [facility] Immature granulocytes/100 WB C Auto (Bld)Ordered By: Josy Elias on 12-07-2024 Immature granulocytes/100 WBC (Bld) 0.300 % 0.0-0.9 [facility] MCV (mean corpuscular volume ) determinationOrdered By: Josy Elias on 12-07-2024 MCV (RBC) [Entitic vol] 93.2 fL 80-94 [facility] Mean corpuscular hemoglobin (MCH) determinationOrdered By: Josy Elias on 12-07-2024 MCH (RBC) [Entitic mass] 30.2 pg 27.0-32.0 [facility] Monocyte percentageOrdered B y: Josy Elias on 12-07-2024 Monocytes/100 WBC (Bld) 12.1 % High 0-10 [facility] Neutrophil percentageOrdered By: Josy Elias on 12-07-2024 Neutrophils/100 WBC (Bld) 63.5 % 47-70 [facility] No Panel InformationOrdered By: Josy Elias on 12-07-2024 37 U/L <38 [facility] Platelet countOrdered By: Monica Elias on 12-07-2024 Platelets (Bld) [#/Vol] 145 10*3/uL Low 150-450 [facility] Potassium measurement (mass/ volume)Ordered By: Josy Elias on 12-07-2024 Potassium (Unsp spec) [Mass/Vol] 3.3 mmol/L 3.3-5.1 [facility] RBC Auto (Bld) [#/Vol]Ordere d By: Josy Elias on 12-07-2024 RBC (Bld) [#/Vol] 2.81 10*6/uL Low 4.6-6.2 [facility] Serum creatinine measurement (mass/volume)Ordered By: Josy Elias on 12-07-2024 Creatinine [Mass/Vol] 1.78 mg/dL High 0.70-1.20 [facility] Serum globulin measurementOr dered By: Josy Elias on 12-07-2024 Globulin (S) [Mass/Vol] 2.9 g/dL 2.2-4.2 [facility] Serum glucose measurement (m ass/volume)Ordered By: Josy Elias on 12-07-2024 Glucose [Mass/Vol] 185 mg/dL High 70-99 [facility] Serum or plasma alanine thomas otransferase (ALT) measurementOrdered By: Josy Elias on 12-07-2024 ALT [Catalytic activity/Vol] 24 U/L <47 [facility] Serum or plasma albumin roosevelt urement (mass/volume)Ordered By: Josy Elias on 12-07-2024 Albumin [Mass/Vol] 2.6 g/dL Low 3.5-5.0 [facility] Serum or plasma albumin/glob ulin mass ratioOrdered By: Josy Elias on 12-07-2024 Albumin/Globulin [Mass ratio] 0.9 {ratio} 0.9-2.4 [facility] Serum or plasma alkaline kendrick sphatase measurementOrdered By: Josy Elias on 12-07-2024 ALP [Catalytic activity/Vol] 241 U/L High 40-129 [facility] Serum or plasma calcium roosevelt urement (mass/volume)Ordered By: Josy Elias on 12-07-2024 Calcium [Mass/Vol] 8.2 mg/dL 7.6-11.0 [facility] Serum or plasma urea nitroge n measurement (mass/volume)Ordered By: Josy Elias on 12-07-2024 Urea nitrogen [Mass/Vol] 18 mg/dL 4-19 [facility] Sodium levelOrdered By: Terrance Elias on 12-07-2024 Sodium [Moles/Vol] 136 mmol/L 133-145 [facility] Total proteinOrdered By: Chinedu Elias on 12-07-2024 Protein [Mass/Vol] 5.5 g/dL Low 5.9-8.4 [facility] White blood cell (WBC) count Ordered By: Josy Elias on 12-07-2024 WBC (Bld) [#/Vol] 9.3 10*3/uL 4.4-11.0 [facility] Absolute lymphocyte countOrd ered By: Hill Acuña on 12-02-2024 Lymphocytes Auto (Unsp spec) [#/Vol] 0.92 10*3/uL 0.83-4.51 [facility] Anion gap in Serum or Plasma Ordered By: Hill Acuña on 12-02-2024 Anion gap [Moles/Vol] 7 mmol/L 5-15 [facility] Automated lymphocyte count a s percentage of total leukocytesOrdered By: Hill Acuña on 12-02-2024 Lymphocytes/100 WBC Auto (Unsp spec) 15.7 % Low 19-41 [facility] BUN/creatinine ratioOrdered By: Hill Acuña on 12-02-2024 Urea nitrogen/Creatinine [Mass ratio] 8.1 mg/mg Low 10-20 [facility] Basophil percentageOrdered B y: Hill Acuña on 12-02-2024 Basophils/100 WBC (Bld) 0.5 % 0-1 [facility] Bilirubin, totalOrdered By: Hill Acuña on 12-02-2024 Bilirubin [Mass/Vol] 1.07 mg/dL 0.00-1.30 [facility] Carbon dioxide, total [Moles /volume] in Central venous bloodOrdered By: Hill Acuña on 12-02-2024 CO2 [Moles/Vol] 21.0 mmol/L 21.0-32.0 [facility] Chloride assayOrdered By: Kvng Acuña on 12-02-2024 Chloride [Moles/Vol] 104 mmol/L 98-108 [facility] Eosinophil percentageOrdered By: Hill Acuña on 12-02-2024 Eosinophils/100 WBC (Bld) 3.6 % 0-5 [facility] Erythrocyte distribution wid th ratioOrdered By: Hill Acuña on 12-02-2024 Erythrocyte distribution width (RBC) [Ratio] 16.2 % High 11.6-14.6 [facility] Erythrocyte distribution wid th standard deviationOrdered By: Hill Acuña on 12-02-2024 Erythrocyte distribution width (RBC) [Ratio] 53.0 fl High 35.1-43.9 [facility] Glomerular filtration rate ( GFR) estimation/1.73 sq m using serum, plasma, or whole bOrdered By: Hill Acuña on 12-02-2024 GFR/1.73 sq M.predicted among non-blacks MDRD (S/P/Bld) [Vol rate/Area] 98 mL/min/{1.73_m2} >60 [facility] Glucose measurement at bedsi deOrdered By: Hill Acuña on 12-02-2024 Glucose [Mass/Vol] 259 mg/dL High 74-106 [facility] Hematocrit Auto (Bld) [Volum e fraction]Ordered By: Hill Acuña on 12-02-2024 Hematocrit (Bld) [Volume fraction] 21.9 % Low 40-54 [facility] Hemoglobin measurementOrdere d By: Hill Acuña on 12-02-2024 Hemoglobin (Bld) [Mass/Vol] 7.2 g/dL Low 13.0-16.5 [facility] Immature granulocytes/100 WB C Auto (Bld)Ordered By: Hill Acuña on 12-02-2024 Immature granulocytes/100 WBC (Bld) 0.500 % 0.0-0.9 [facility] MCV (mean corpuscular volume ) determinationOrdered By: Hill Acuña on 12-02-2024 MCV (RBC) [Entitic vol] 89.8 fL 80-94 [facility] Magnesium measurement (mass/ volume)Ordered By: Hill Acuña on 12-02-2024 Magnesium (Unsp spec) [Mass/Vol] 1.6 mg/dL 1.5-2.2 [facility] Mean corpuscular hemoglobin (MCH) determinationOrdered By: Hill Acuña on 12-02-2024 MCH (RBC) [Entitic mass] 29.5 pg 27.0-32.0 [facility] Monocyte percentageOrdered B y: Hill Acuña on 12-02-2024 Monocytes/100 WBC (Bld) 13.3 % High 0-10 [facility] Neutrophil percentageOrdered By: Hill Acuña on 12-02-2024 Neutrophils/100 WBC (Bld) 66.4 % 47-70 [facility] No Panel InformationOrdered By: Hill Acuña on 12-02-2024 58 U/L High <38 [facility] Platelet countOrdered By: Kvng Acuña on 12-02-2024 Platelets (Bld) [#/Vol] 100 10*3/uL Low 150-450 [facility] Potassium measurement (mass/ volume)Ordered By: Hill Acuña on 12-02-2024 Potassium (Unsp spec) [Mass/Vol] 3.8 mmol/L 3.3-5.1 [facility] RBC Auto (Bld) [#/Vol]Ordere d By: Hill Acuña on 12-02-2024 RBC (Bld) [#/Vol] 2.44 10*6/uL Low 4.6-6.2 [facility] Serum creatinine measurement (mass/volume)Ordered By: Hill Acuña on 12-02-2024 Creatinine [Mass/Vol] 0.90 mg/dL 0.70-1.20 [facility] Serum globulin measurementOr dered By: Hill Acuña on 12-02-2024 Globulin (S) [Mass/Vol] 2.6 g/dL 2.2-4.2 [facility] Serum glucose measurement (m ass/volume)Ordered By: Hill Acuña on 12-02-2024 Glucose [Mass/Vol] 221 mg/dL High 70-99 [facility] Serum or plasma alanine thomas otransferase (ALT) measurementOrdered By: Hill Acuña on 12-02-2024 ALT [Catalytic activity/Vol] 33 U/L <47 [facility] Serum or plasma albumin roosevelt urement (mass/volume)Ordered By: Hill Acuña on 12-02-2024 Albumin [Mass/Vol] 2.5 g/dL Low 3.5-5.0 [facility] Serum or plasma albumin/glob ulin mass ratioOrdered By: Hill Acuña on 12-02-2024 Albumin/Globulin [Mass ratio] 1.0 {ratio} 0.9-2.4 [facility] Serum or plasma alkaline kendrick sphatase measurementOrdered By: Hill Acuña on 12-02-2024 ALP [Catalytic activity/Vol] 219 U/L High 40-129 [facility] Serum or plasma calcium roosevelt urement (mass/volume)Ordered By: Hill Acuña on 12-02-2024 Calcium [Mass/Vol] 7.8 mg/dL 7.6-11.0 [facility] Serum or plasma urea nitroge n measurement (mass/volume)Ordered By: Hill Acuña on 12-02-2024 Urea nitrogen [Mass/Vol] 7 mg/dL 4-19 [facility] Sodium levelOrdered By: Paulino Acuña on 12-02-2024 Sodium [Moles/Vol] 132 mmol/L Low 133-145 [facility] Total proteinOrdered By: Hugo Acuña on 12-02-2024 Protein [Mass/Vol] 5.1 g/dL Low 5.9-8.4 [facility] Trough vancomycin levelOrder ed By: Maria Guadalupe Shore on 12-02-2024 Vancomycin trough [Mass/Vol] 19.6 ug/mL High 5.0-15.0 [facility] White blood cell (WBC) count Ordered By: Hill Acuña on 12-02-2024 WBC (Bld) [#/Vol] 5.9 10*3/uL 4.4-11.0 [facility] Platelet estimateOrdered By: Hill Acuña on 11-30-2024 Platelets LM Ql (Bld) MOD DEC ADEQ [facility] Serum or plasma vancomycin m easurement (mass/volume)Ordered By: Kathie Powers on 11-30-2024 Vancomycin [Mass/Vol] 17.7 ug/mL High 0.0-15.0 [facility] Prothrombin timeOrdered By: Kathie Powers on 11-29-2024 PT Coag (PPP) [Time] 21.1 s High 11.7-14.9 [facility] Bilirubin Test strip Ql (U)O rdered By: Rachel Joiner on 11-28-2024 Bilirubin Ql (U) Negative Negative [facility] Bilirubin directOrdered By: Rachel Joiner on 11-28-2024 Bilirubin.direct [Mass/Vol] 0.72 mg/dL High 0.00-0.30 [facility] Ketones Test strip Ql (U)Ord ered By: Rachel Joiner on 11-28-2024 Ketones Ql (U) 5 mg/dl High Negative [facility] Mucus LM Ql (Urine sed)Order ed By: Rachel Joiner on 11-28-2024 Mucus Ql (Urine sed) 0 SEEN /hpf [facility] Nitrite Test strip Ql (U)Ord ered By: Rachel Jioner on 11-28-2024 Nitrite Ql (U) Positive High Negative [facility] Protein Test strip Ql (U)Ord ered By: Rachel Joiner on 11-28-2024 Protein Ql (U) 100 mg/dl High Negative [facility] Squamous epithelial cells de tection in urine sediment by light microscopyOrdered By: Rachel Joiner on 11-28-2024 Epithelial cells.squamous LM Ql (Urine sed) 0-5 SEEN /hpf 0-5 [facility] Urine clarityOrdered By: Shi Joiner on 11-28-2024 Clarity (U) Cloudy Clear [facility] Urine color determinationOrd ered By: Rachel Joiner on 11-28-2024 Color (U) Lexis Yellow [facility] Urine cultureOrdered By: Tyree Powers on 11-28-2024 Bacteria identified Cx Nom (U) ESBL Klebsiella pneumoniae pne Abnormal [facility] Urine glucose detectionOrder ed By: Rachel Joiner on 11-28-2024 Glucose Ql (U) Normal mg/dl Normal [facility] Urine leukocyte esterase det ection by dipstickOrdered By: Rachel Joiner on 11-28-2024 Leukocyte esterase Test strip Ql (U) 500 /ul High Negative [facility] Urine pHOrdered By: Rachel silva on 11-28-2024 pH (U) 6.5 [pH] 5.0 - 8.0 [facility] Urine sediment bacteria coun t by microscopy (number/high power field)Ordered By: Rachel Joiner on 11-28-2024 Bacteria LM.HPF (Urine sed) [#/Area] 1 /[HPF] None Seen [facility] Urine specific gravity measu rementOrdered By: Rachel Joiner on 11-28-2024 Specific gravity (U) [Rel density] 1.010 1.002-1.030 [facility] Urine urobilinogen measureme ntOrdered By: Rachel Joiner on 11-28-2024 Urobilinogen Ql (U) Normal mg/dl Normal [facility] Venous blood ammonia measure mentOrdered By: Rachel Joiner on 11-28-2024 Ammonia (P) [Moles/Vol] 68.4 umol/L High 16-60 [facility] White blood cell countOrdere d By: Rachel Joiner on 11-28-2024 White blood cell count 50-100 SEEN /hpf 0-5 [facility] Absolute lymphocyte countOrd ered By: Anurag Irene on 11-25-2024 Lymphocytes Auto (Unsp spec) [#/Vol] 0.92 10*3/uL 0.83-4.51 [facility] Anion gap in Serum or Plasma Ordered By: Anurag Irene on 11-25-2024 Anion gap [Moles/Vol] 8 mmol/L 5-15 [facility] Automated lymphocyte count a s percentage of total leukocytesOrdered By: Anurag Irene on 11-25-2024 Lymphocytes/100 WBC Auto (Unsp spec) 16.7 % Low 19-41 [facility] BUN/creatinine ratioOrdered By: Anurag Irene on 11-25-2024 Urea nitrogen/Creatinine [Mass ratio] 9.2 mg/mg Low 10-20 [facility] Basophil percentageOrdered B y: Anurag Irene on 11-25-2024 Basophils/100 WBC (Bld) 0.4 % 0-1 [facility] Bilirubin, totalOrdered By: Anurag Irene on 11-25-2024 Bilirubin [Mass/Vol] 1.07 mg/dL 0.00-1.30 [facility] Carbon dioxide, total [Moles /volume] in Central venous bloodOrdered By: Anurag Irene on 11-25-2024 CO2 [Moles/Vol] 19.3 mmol/L Low 21.0-32.0 [facility] Chloride assayOrdered By: Francois Irene on 11-25-2024 Chloride [Moles/Vol] 108 mmol/L 98-108 [facility] Eosinophil percentageOrdered By: Anurag Irene on 11-25-2024 Eosinophils/100 WBC (Bld) 4.2 % 0-5 [facility] Erythrocyte distribution wid th ratioOrdered By: Anurag Irene on 11-25-2024 Erythrocyte distribution width (RBC) [Ratio] 15.8 % High 11.6-14.6 [facility] Erythrocyte distribution wid th standard deviationOrdered By: Anurag Irene on 11-25-2024 Erythrocyte distribution width (RBC) [Ratio] 52.9 fl High 35.1-43.9 [facility] Glomerular filtration rate ( GFR) estimation/1.73 sq m using serum, plasma, or whole bOrdered By: Anurag Irene on 11-25-2024 GFR/1.73 sq M.predicted among non-blacks MDRD (S/P/Bld) [Vol rate/Area] 100 mL/min/{1.73_m2} >60 [facility] de[facility]dered By: Anurag Irene on 11-25-2024 Glucose [Mass/Vol] 222 mg/dL High 74-106 [facility] Hematocrit Auto (Bld) [Volum e fraction]Ordered By: Anurag Irene on 11-25-2024 Hematocrit (Bld) [Volume fraction] 21.5 % Low 40-54 [facility] Hemoglobin measurementOrdere d By: Anurag Irene on 11-25-2024 Hemoglobin (Bld) [Mass/Vol] 7.0 g/dL Low 13.0-16.5 [facility] Immature granulocytes/100 WB C Auto (Bld)Ordered By: Anurag Irene on 11-25-2024 Immature granulocytes/100 WBC (Bld) 0.400 % 0.0-0.9 [facility] MCV (mean corpuscular volume ) determinationOrdered By: Anurag Irene on 11-25-2024 MCV (RBC) [Entitic vol] 93.1 fL 80-94 [facility] Mean corpuscular hemoglobin (MCH) determinationOrdered By: Anurag Irene on 11-25-2024 MCH (RBC) [Entitic mass] 30.3 pg 27.0-32.0 [facility] Monocyte percentageOrdered B y: Anurag Irene on 11-25-2024 Monocytes/100 WBC (Bld) 12.7 % High 0-10 [facility] Neutrophil percentageOrdered By: Anurag Irene on 11-25-2024 Neutrophils/100 WBC (Bld) 65.6 % 47-70 [facility] No Panel InformationOrdered By: Anurag Irene on 11-25-2024 60 U/L High <38 [facility] Platelet countOrdered By: Francois Irene on 11-25-2024 Platelets (Bld) [#/Vol] 82 10*3/uL Low 150-450 [facility] Potassium measurement (mass/ volume)Ordered By: Anurag Irene on 11-25-2024 Potassium (Unsp spec) [Mass/Vol] 4.2 mmol/L 3.3-5.1 [facility] RBC Auto (Bld) [#/Vol]Ordere d By: Anurag Irene on 11-25-2024 RBC (Bld) [#/Vol] 2.31 10*6/uL Low 4.6-6.2 [facility] Serum creatinine measurement (mass/volume)Ordered By: Anurag Irene on 11-25-2024 Creatinine [Mass/Vol] 0.86 mg/dL 0.70-1.20 [facility] Serum globulin measurementOr dered By: Anurag Irene on 11-25-2024 Globulin (S) [Mass/Vol] 2.2 g/dL 2.2-4.2 [facility] Serum glucose measurement (m ass/volume)Ordered By: Anurag Irene on 11-25-2024 Glucose [Mass/Vol] 179 mg/dL High 70-99 [facility] Serum or plasma alanine thomas otransferase (ALT) measurementOrdered By: Anurag Irene on 11-25-2024 ALT [Catalytic activity/Vol] 41 U/L <47 [facility] Serum or plasma albumin roosevelt urement (mass/volume)Ordered By: Anurag Irene on 11-25-2024 Albumin [Mass/Vol] 2.7 g/dL Low 3.5-5.0 [facility] Serum or plasma albumin/glob ulin mass ratioOrdered By: Anurag Irene on 11-25-2024 Albumin/Globulin [Mass ratio] 1.2 {ratio} 0.9-2.4 [facility] Serum or plasma alkaline kendrick sphatase measurementOrdered By: Anurag Irene on 11-25-2024 ALP [Catalytic activity/Vol] 168 U/L High 40-129 [facility] Serum or plasma calcium roosevelt urement (mass/volume)Ordered By: Anurag Irene on 11-25-2024 Calcium [Mass/Vol] 8.3 mg/dL 7.6-11.0 [facility] Serum or plasma urea nitroge n measurement (mass/volume)Ordered By: Anurag Irene on 11-25-2024 Urea nitrogen [Mass/Vol] 8 mg/dL 4-19 [facility] Sodium levelOrdered By: Marni Irene on 11-25-2024 Sodium [Moles/Vol] 135 mmol/L 133-145 [facility] Total proteinOrdered By: [place] Irene on 11-25-2024 Protein [Mass/Vol] 4.9 g/dL Low 5.9-8.4 [facility] White blood cell (WBC) count Ordered By: Anurag Irene on 11-25-2024 WBC (Bld) [#/Vol] 5.5 10*3/uL 4.4-11.0 [facility] Blood manual differential co mment interpretation (narrative result)Ordered By: Anurag Irene on 11-24-2024 Manual differential comment Marco Antonio (Bld) [Interp] SCANNED [facility] Platelet estimateOrdered By: Anurag Irene on 11-24-2024 Platelets LM Ql (Bld) MOD DEC ADEQ [facility] Prothrombin timeOrdered By: Anurag Irene on 11-24-2024 PT Coag (PPP) [Time] 22.6 s High 11.7-14.9 [facility] Bilirubin directOrdered By: Anurag Irene on 11-22-2024 Bilirubin.direct [Mass/Vol] 0.73 mg/dL High 0.00-0.30 [facility] ALP [Catalytic activity/Vol] Ordered By: Herberth Carlson on 11-21-2024 Serum or plasma alkaline phosphatase measurement 245 U/L High 40-129 [facility] ALT [Catalytic activity/Vol] Ordered By: Herberth Carlson on 11-21-2024 Serum or plasma alanine aminotransferase (ALT) measurement 61 U/L High <47 [facility] Absolute neutrophil countOrd ered By: Herberth Carlson on 11-21-2024 Absolute neutrophil count 6.5 X10^3/uL 2.0-7.7 [facility] Albumin [Mass/Vol]Ordered By : Herberth Carlson on 11-21-2024 Serum or plasma albumin measurement (mass/volume) 2.5 g/dL Low 3.5-5.0 [facility] Albumin/Globulin [Mass ratio ]Ordered By: Herberth Carlson on 11-21-2024 Serum or plasma albumin/globulin mass ratio 0.9 RATIO 0.9-2.4 [facility] Anion gap [Moles/Vol]Ordered By: Herberth Carlson on 11-21-2024 Anion gap in Serum or Plasma 11 5-15 [facility] BUN/creatinine ratioOrdered By: Herberth Carlson on 11-21-2024 BUN/creatinine ratio 19.1 RATIO 10-20 [facility] Bacteria LM.HPF (Urine sed) [#/Area]Ordered By: Herberth Carlson on 11-21-2024 Urine sediment bacteria count by microscopy (number/high power field) RARE /hpf None Seen [facility] Basophil percentageOrdered B y: Herberth Carlson on 11-21-2024 Basophil percentage 0.2 % 0-1 [facility] Bilirubin Test strip Ql (U)O rdered By: Herberth Carlson on 11-21-2024 Bilirubin Ql (U) Negative Negative [facility] Bilirubin, totalOrdered By: Herberth Carlson on 11-21-2024 Bilirubin, total 1.33 mg/dL High 0.00-1.30 [facility] Calcium [Mass/Vol]Ordered By : Herberth Carlson on 11-21-2024 Serum or plasma calcium measurement (mass/volume) 8.7 mg/dL 7.6-11.0 [facility] Carbon dioxide, total [Moles /volume] in Central venous bloodOrdered By: Herberth Carlson on 11-21-2024 Carbon dioxide, total [Moles/volume] in Central venous blood 17.5 mmol/L Low 21.0-32.0 [facility] Chloride assayOrdered By: Kaylyn Carlson on 11-21-2024 Chloride assay 103 mmol/L 98-108 [facility] Clarity (U)Ordered By: Ashish Carlson on 11-21-2024 Urine clarity Sl Cldy Clear [facility] Color (U)Ordered By: Herberth Carlson on 11-21-2024 Urine color determination Yellow Yellow [facility] Creatinine [Mass/Vol]Ordered By: Herberth Carlson on 11-21-2024 Serum creatinine measurement (mass/volume) 1.49 mg/dL High 0.70-1.20 [facility] Eosinophil percentageOrdered By: Herberth Carlson on 11-21-2024 Eosinophil percentage 7.2 % High 0-5 [facility] Erythrocyte distribution wid th (RBC) [Ratio]Ordered By: Herberth Carlson on 11-21-2024 Erythrocyte distribution width ratio 16.8 % High 11.6-14.6 [facility] Erythrocyte distribution width standard deviation 57.1 fl High 35.1-43.9 [facility] Estimation of creatinine [place] aranceOrdered By: Herberth Carlson on 11-21-2024 Estimation of creatinine clearance 64.65 ml/min 50-250 [facility] GFR/1.73 sq M.predicted niki g non-blacks MDRD (S/P/Bld) [Vol rate/Area]Ordered By: Herberth Carlson on 11-21-2024 Glomerular filtration rate (GFR) estimation/1.73 sq m using serum, plasma, or whole b 54 Low >60 [facility] Glucose [Mass/Vol]Ordered By : Herberth Carlson on 11-21-2024 Serum glucose measurement (mass/volume) 188 mg/dL High 70-99 [facility] Hematocrit Auto (Bld) [Volum e fraction]Ordered By: Herberth Carlson on 11-21-2024 Automated blood hematocrit (percentage) 24.6 % Low 40-54 [facility] Hemoglobin measurementOrdere d By: Herberth Carlson on 11-21-2024 Hemoglobin measurement 8.3 g/dL Low 13.0-16.5 [facility] Immature granulocytes/100 WB C Auto (Bld)Ordered By: Herberth Carlson on 11-21-2024 Automated immature granulocyte percentage 0.800 % 0.0-0.9 [facility] International normalized rat io (INR) calculationOrdered By: Herberth Carlson on 11-21-2024 International normalized ratio (INR) calculation 2.6 [facility] Ketones Test strip Ql (U)Ord ered By: Herberth Carlson on 11-21-2024 Ketones Ql (U) Negative Negative [facility] Lactic acid measurementOrder ed By: Herberth Carlson on 11-21-2024 Lactic acid measurement 2.7 mmol/L High 0.0-2.0 [facility] Leukocyte esterase Test stri p Ql (U)Ordered By: Herberth Carlson on 11-21-2024 Urine leukocyte esterase detection by dipstick 500 /ul High Negative [facility] Lymphocytes Auto (Unsp spec) [#/Vol]Ordered By: Herberth Carlson on 11-21-2024 Absolute lymphocyte count 1.33 X10^3/uL 0.83-4.51 [facility] Lymphocytes/100 WBC Auto (Un sp spec)Ordered By: Herberth Carlson on 11-21-2024 Automated lymphocyte count as percentage of total leukocytes 13.9 % Low 19-41 [facility] MCV (RBC) [Entitic vol]Order ed By: Herberth Carlson on 11-21-2024 MCV (mean corpuscular volume) determination 93.2 fL 80-94 [facility] Mean corpuscular hemoglobin (MCH) determinationOrdered By: Herberth Carlson on 11-21-2024 Mean corpuscular hemoglobin (MCH) determination 31.4 pg 27.0-32.0 [facility] Mean corpuscular hemoglobin concentration (MCHC) determinationOrdered By: Herberth Carlson on 11-21-2024 Mean corpuscular hemoglobin concentration (MCHC) determination 33.7 g/dL 32-36 [facility] Mean platelet volume determi nationOrdered By: Herberth Carlson on 11-21-2024 Mean platelet volume determination 11.6 fl 6.2-12.0 [facility] Monocyte percentageOrdered B y: Herberth Carlson on 11-21-2024 Monocyte percentage 9.2 % 0-10 [facility] Mucus LM Ql (Urine sed)Order ed By: Herberth Carlson on 11-21-2024 Mucus Ql (Urine sed) 0 SEEN /hpf [facility] Neutrophil percentageOrdered By: Herberth Carlson on 11-21-2024 Neutrophil percentage 68.7 % 47-70 [facility] Nitrite Test strip Ql (U)Ord ered By: Herberth Carlson on 11-21-2024 Nitrite Ql (U) Negative Negative [facility] No Panel InformationOrdered By: Herberth Carlson on 11-21-2024 112 U/L High <38 [facility] Nucleated red blood cell per centageOrdered By: Herberth Carlson on 11-21-2024 Nucleated red blood cell percentage 0 % 0-5 [facility] Platelet countOrdered By: Kaylyn Carlson on 11-21-2024 Platelet count 167 K/mm3 150-450 [facility] Potassium (Unsp spec) [Mass/ Vol]Ordered By: Herberth Carlson on 11-21-2024 Potassium measurement (mass/volume) 5.0 mmol/L 3.3-5.1 [facility] Protein Test strip Ql (U)Ord ered By: Herberth Carlson on 11-21-2024 Protein Ql (U) 500 mg/dl High Negative [facility] Urine protein assay by test strip, semi-quantitative 500 mg/dl High Negative [facility] Prothrombin timeOrdered By: Herberth Carlson on 11-21-2024 Prothrombin time 28.2 SECONDS High 11.7-14.9 [facility] RBC Auto (Bld) [#/Vol]Ordere d By: Herberth Carlson on 11-21-2024 Automated blood erythrocyte count 2.64 M/mm3 Low 4.6-6.2 [facility] Serum globulin measurementOr dered By: Herberth Carlson on 11-21-2024 Serum globulin measurement 2.7 g/dL 2.2-4.2 [facility] Sodium levelOrdered By: Norman Carlson on 11-21-2024 Sodium level 132 mmol/L Low 133-145 [facility] Specific gravity (U) [Rel de nsity]Ordered By: Herberth Carlson on 11-21-2024 Urine specific gravity measurement 1.015 1.002-1.030 [facility] Squamous epithelial cells de tection in urine sediment by light microscopyOrdered By: Herberth Carlson on 11-21-2024 Epithelial cells.squamous LM Ql (Urine sed) 0 SEEN /hpf 0-5 [facility] Squamous epithelial cells detection in urine sediment by light microscopy 0 SEEN /hpf [facility] Total proteinOrdered By: Digna Carlson on 11-21-2024 Total protein 5.2 g/dL Low 5.9-8.4 [facility] Urea nitrogen [Mass/Vol]Orde red By: Herberth Carlson on 11-21-2024 Serum or plasma urea nitrogen measurement (mass/volume) 28 mg/dL High 4-19 [facility] Urine blood detectionOrdered By: Herberth Carlson on 11-21-2024 Urine blood detection 250 /ul High Negative [facility] Urine clarityOrdered By: Digna Carlson on 11-21-2024 Clarity (U) Sl Cldy Clear [facility] Urine color determinationOrd ered By: Herberth Carlson on 11-21-2024 Color (U) Yellow Yellow [facility] Urine cultureOrdered By: Digna Carlson on 11-21-2024 Bacteria identified Cx Nom (U) GNR lactose obgyn specialist Abnormal [facility] Bacteria identified Cx Nom (U) GPC Poss Enterococcus sp Abnormal [facility] Bacteria identified Cx Nom (U) Positive Abnormal [facility] Urine glucose detectionOrder ed By: Herberth Carlson on 11-21-2024 Glucose Ql (U) Normal mg/dl Normal [facility] Urine glucose detection Normal mg/dl Normal [facility] Urine leukocyte esterase det ection by dipstickOrdered By: Herberth Carlson on 11-21-2024 Leukocyte esterase Test strip Ql (U) 500 /ul High Negative [facility] Urine pHOrdered By: Herberth Carlson on 11-21-2024 pH (U) 6.0 [pH] 5.0 - 8.0 [facility] Urine sediment bacteria coun t by microscopy (number/high power field)Ordered By: Herberth Carlson on 11-21-2024 Bacteria LM.HPF (Urine sed) [#/Area] RARE /hpf None Seen [facility] Urine specific gravity measu rementOrdered By: Herberth Carlson on 11-21-2024 Specific gravity (U) [Rel density] 1.015 1.002-1.030 [facility] Urine total bilirubin detect ion by test stripOrdered By: Herberth Carlson on 11-21-2024 Urine total bilirubin detection by test strip Negative Negative [facility] Urine urobilinogen measureme ntOrdered By: Herberth Carlson on 11-21-2024 Urobilinogen Ql (U) Normal mg/dl Normal [facility] Venous blood ammonia measure mentOrdered By: Herberth Carlson on 11-21-2024 Ammonia (P) [Moles/Vol] 17.9 umol/L 16-60 [facility] Venous blood ammonia measurement 17.9 umol/L 16-60 [facility] White blood cell (WBC) count Ordered By: Herberth Carlson on 11-21-2024 White blood cell (WBC) count 9.5 K/mm3 4.4-11.0 [facility] White blood cell countOrdere d By: Herberth Carlson on 11-21-2024 White blood cell count >100 SEEN /hpf 0-5 [facility] White blood cell count >100 SEEN /hpf 0-5 [facility] pH (U)Ordered By: Herberth henao on 11-21-2024 Urine pH 6.0 5.0 - 8.0 [facility] Bacteria Ur Culton Bacteria identified Cx Nom (U) CULTURE, URINE: Mixed microbiota, including predominantly: ORGANISM ID: 1 >=100,000 CFU/ml Mary glabrata No susceptibility testing done. Normal [facility] Comment on above: Performed By: #### 6 30-4 ####[facility] LABCLIA [id number] [place] [address] [place] Bacteria identified Cx Nom (U) Normal [facility] Comment on above: Performed By: #### 2 4356-8, 630-4 ####[facility] LABCLIA [id number] [place] [id number] [place] Basic metabolic 2000 panelon 11-18-2024 Anion gap [Moles/Vol] 8 mmol/L Normal 8-15 [facility] Comment on above: Order Comment: Speci men Type: BLOOD SPECIMENOrdering Facility: [facility] Address: [address] [place] [address] Performed By: #### 2 4321-2, 41201-9, 2777-1 ####[facility] LABCLIA [id number] [place] [id number] [place] Calcium [Mass/Vol] 8.3 mg/dL Low 8.5-10.2 [facility] Comment on above: Order Comment: Speci men Type: BLOOD SPECIMENOrdering Facility: [facility] Address: [address] [place] [address] Performed By: #### 2 4321-2, 64473-7, 2777-1 ####[facility] LABCLIA [id number] [address] [address] [place] Chloride [Moles/Vol] 102 mmol/L Normal 98-107 [facility] Comment on above: Order Comment: Speci men Type: BLOOD SPECIMENOrdering Facility: [facility] Address: [address] [place] [address] Performed By: #### 2 4321-2, 33130-9, 2777-1 ####[facility] LABIA [id number] [place] [id number] [place] CO2 [Moles/Vol] 19 mmol/L Low 22-30 [facility] Comment on above: Order Comment: Speci men Type: BLOOD SPECIMENOrdering Facility: [facility] Address: [address] [place] [address] Performed By: #### 2 4321-2, 88405-1, 277- ####[facility] LABIA [id number] [place] [address] [place] Creatinine [Mass/Vol] 0.95 mg/dL Normal 0.73-1.22 [facility] Comment on above: Order Comment: Speci men Type: BLOOD SPECIMENOrdering Facility: [facility] Address: [address] [place] [address] Performed By: #### 2 4321-2, 55615-8, 2777- ####[facility] LABIA [id number] [place] [id number] [place] Creatinine and Glomerular filtration rate.predicted panel (S/P/Bld) 93 mL/min/1.73m??? Normal >=60 [facility] Comment on above: Order Comment: Speci men Type: BLOOD SPECIMENOrdering Facility: [facility] Address: [address] [place] [address] Result Comment: Patric mated Glomerular Filtration Rate [...] actual GFR. Performed By: #### 2 4321-2, 69207-9, 2776- ####[facility] LABIA [id number] [address] [address] [place] Glucose [Mass/Vol] 248 mg/dL High 74-99 [facility] Comment on above: Order Comment: Speci men Type: BLOOD SPECIMENOrdering Facility: [facility] Address: [address] [place] [address] Result Comment: The [place] [employer] (ADA) provides guidance for cutoff [...] Standards of Medical Care in Diabetes 2016, [place] [employer]. Diabetes Care. 2016.39(Suppl 1). Performed By: #### 2 4321-2, 02180-3, 2776- ####[facility] LABIA [id number] [address] [address] [place] Potassium [Moles/Vol] 4.4 mmol/L Normal 3.7-5.1 [facility] Comment on above: Order Comment: Meggani men Type: BLOOD SPECIMENOrdering Facility: [facility] Address: [address] [place] [address] Performed By: #### 2 4321-2, 50019-1, 2776- ####[facility] LABCLIA [id number] [address] [address] [place] Sodium [Moles/Vol] 129 mmol/L Low 136-144 [facility] Comment on above: Order Comment: Speci men Type: BLOOD SPECIMENOrdering Facility: [facility] Address: [address] [place] [address] Performed By: #### 2 4321-2, 23309-2, 2777-1 ####[facility] LABCLIA [id number] [place] [address] [place] Urea nitrogen [Mass/Vol] 16 mg/dL Normal 9-24 [facility] Comment on above: Order Comment: Speci men Type: BLOOD SPECIMENOrdering Facility: [facility] Address: [address] [place] [address] Performed By: #### 2 4321-2, 11328-2, 2777- ####[facility] LABCLIA [id number] [place] [address] [place] CASE MANAGEMon 11-18-2024 CASE MANAGEM Normal [facility] CBC W Auto Differential pane l (Bld)on 11-18-2024 Basophils (Bld) [#/Vol] 10*3/uL Normal <0.11 [facility]: Order Comment: Speci men Type: BLOOD SPECIMENOrdering Facility: [facility] Address: [address] [place] [address] Performed By: #### 5 7021-8 ####[facility] LABIA [id number] [place] [address] [place] Basophils/100 WBC (Bld) 0.0 % [facility] Comment on above: Order Comment: Speci men Type: BLOOD SPECIMENOrdering Facility: [facility] Address: [address] [place] [address] Performed By: #### 5 7021-8 ####[facility] LABCLIA [id number] [address], [place] [address] [place] Differential cell count method Nom (Bld) Auto Normal [facility] Comment on above: Order Comment: Speci men Type: BLOOD SPECIMENOrdering Facility: [facility] Address: [address] [place] [address] Performed By: #### 5 7021-8 ####[facility] LABCLIA [id number] [address], [place] [address] [place] Eosinophils (Bld) [#/Vol] 10*3/uL Normal <0.46 [facility] Comment on above: Order Comment: Speci men Type: BLOOD SPECIMENOrdering Facility: [facility] Address: [address] [place] [address] Performed By: #### 5 7021-8 ####[facility] LABCLIA [id number] [address], [place] [address] [place] Eosinophils/100 WBC (Bld) 0.1 % Normal [facility] Comment on above: Order Comment: Speci men Type: BLOOD SPECIMENOrdering Facility: [facility] Address: [address] [place] [address] Performed By: #### 5 7021-8 ####[facility] LABCLIA [id number] [address], [place] [address] [place] Erythrocyte distribution width (RBC) [Ratio] 16.7 % High 11.5-15.0 [facility] Comment on above: Order Comment: Speci men Type: BLOOD SPECIMENOrdering Facility: [facility] Address: [address] [place] [address] Performed By: #### 5 7021-8 ####[facility] LABCLIA [id number] [place] [address] [place] Hematocrit (Bld) [Volume fraction] 21.5 % Low 39.0-51.0 [facility] Comment on above: Order Comment: Speci men Type: BLOOD SPECIMENOrdering Facility: [facility] Address: [address] [place] [address] Performed By: #### 5 7021-8 ####[facility] LABCLIA [id number] [place] [address] [place] Hemoglobin (Bld) [Mass/Vol] 7.2 g/dL Low 13.0-17.0 [facility] Comment on above: Order Comment: Speci men Type: BLOOD SPECIMENOrdering Facility: [facility] Address: [address] [place] [address] Performed By: #### 5 7021-8 ####[facility] LABCLIA [id number] [place] [address] [place] Immature granulocytes (Bld) [#/Vol] 0.06 10*3/uL Normal <0.10 [facility] Comment on above: Order Comment: Speci men Type: BLOOD SPECIMENOrdering Facility: [facility] Address: [address] [place] [address] Performed By: #### 5 7021-8 ####[facility] LABCLIA [id number] [place] [address] [place] Immature granulocytes/100 WBC (Bld) 0.7 % Normal [facility] Comment on above: Order Comment: Speci men Type: BLOOD SPECIMENOrdering Facility: [facility] Address: [address] [place] [address] Performed By: #### 5 7021-8 ####[facility] LABCLIA [id number] [place] [address] [place] Lymphocytes (Bld) [#/Vol] 0.61 10*3/uL Low 1.00-4.00 [facility] Comment on above: Order Comment: Speci men Type: BLOOD SPECIMENOrdering Facility: [facility] Address: [address] [place] [address] Performed By: #### 5 7021-8 ####[facility] LABCLIA [id number] [place] [address] [place] Lymphocytes/100 WBC (Bld) 7.3 % Normal [facility] Comment on above: Order Comment: Speci men Type: BLOOD SPECIMENOrdering Facility: [facility] Address: [address] [place] [address] Performed By: #### 5 7021-8 ####[facility] LABCLIA [id number] [place] [address] [place] MCH (RBC) [Entitic mass] 30.9 pg Normal 26.0-34.0 [facility] Comment on above: Order Comment: Speci men Type: BLOOD SPECIMENOrdering Facility: [facility] Address: [address] [place] [address] Performed By: #### 5 7021-8 ####[facility] LABIA [id number] [place] [address] [place] MCHC (RBC) [Mass/Vol] 33.5 g/dL Normal 30.5-36.0 [facility] Comment on above: Order Comment: Speci men Type: BLOOD SPECIMENOrdering Facility: [facility] Address: [address] [place] [address] Performed By: #### 5 7021-8 ####[facility] LABIA [id number] [place] [address] [place] MCV (RBC) [Entitic vol] 92.3 fL Normal 80.0-100.0 [facility] Comment on above: Order Comment: Speci men Type: BLOOD SPECIMENOrdering Facility: [facility] Address: [address] [place] [address] Performed By: #### 5 7021-8 ####[facility] LABCLIA [id number] [place] [address] [place] Monocytes (Bld) [#/Vol] 0.72 10*3/uL Normal <0.87 [facility] Comment on above: Order Comment: Speci men Type: BLOOD SPECIMENOrdering Facility: [facility] Address: [address] [place] [address] Performed By: #### 5 7021-8 ####[facility] LABCLIA [id number] [place] [id number] [place] Monocytes/100 WBC (Bld) 8.7 % Normal [facility] Comment on above: Order Comment: Speci men Type: BLOOD SPECIMENOrdering Facility: [facility] Address: [address] [place] [address] Performed By: #### 5 7021-8 ####[facility] LABIA [id number] [place] [address] [place] Neutrophils (Bld) [#/Vol] 6.92 10*3/uL Normal 1.45-7.50 [facility] Comment on above: Order Comment: Speci men Type: BLOOD SPECIMENOrdering Facility: [facility] Address: [address] [place] [address] Performed By: #### 5 7021-8 ####[facility] LABIA [id number] [place] [address] [place] Neutrophils/100 WBC (Bld) 83.2 % Normal [facility] Comment on above: Order Comment: Speci men Type: BLOOD SPECIMENOrdering Facility: [facility] Address: [address] [place] [address] Performed By: #### 5 7021-8 ####[facility] LABIA [id number] [place] [id number] [place] Nucleated RBC (Bld) [#/Vol] 10*3/uL Normal <0.01 [facility] Comment on above: Order Comment: Speci men Type: BLOOD SPECIMENOrdering Facility: [facility] Address: [address] [place] [address] Performed By: #### 5 7021-8 ####[facility] LABCLIA [id number] [address] [address] [place] Nucleated RBC/100 WBC (Bld) [Ratio] 0.0 /100 WBC Normal [facility] Comment on above: Order Comment: Speci men Type: BLOOD SPECIMENOrdering Facility: [facility] Address: [address] [place] [address] Performed By: #### 5 7021-8 ####[facility] LABIA [id number] [place] [address] [place] Platelet mean volume (Bld) [Entitic vol] 12.1 fL Normal 9.0-12.7 [facility] Comment on above: Order Comment: Speci men Type: BLOOD SPECIMENOrdering Facility: [facility] Address: [address] [place] [address] Performed By: #### 5 7021-8 ####[facility] LABIA [id number] [place] [address] [place] Platelets (Bld) [#/Vol] 76 10*3/uL Low 150-400 C [facility] Comment on above: Order Comment: Speci men Type: BLOOD SPECIMENOrdering Facility: [facility] Address: [address] [place] [address] Result Comment: No c lot detected. Performed By: #### 5 7021-8 ####[facility] LABIA [id number] [place] [address] [place] RBC (Bld) [#/Vol] 2.33 10*6/uL Low 4.20-6.00 [facility] Comment on above: Order Comment: Speci men Type: BLOOD SPECIMENOrdering Facility: [facility] Address: [address] [place] [address] Performed By: #### 5 7021-8 ####[facility] LABIA [id number] [place] [address] [place] WBC (Bld) [#/Vol] 8.32 10*3/uL Normal 3.70-11.00 [facility] Comment on above: Order Comment: Speci men Type: BLOOD SPECIMENOrdering Facility: [facility] Address: [address] [place] [address] Performed By: #### 5 7021-8 ####[facility] LABCLIA [id number] [place] [address] [place] CNCOon 11-18-2024 CNCO Letter Text Normal [facility] CNDSon 11-18-2024 CNDS Normal [facility] CNPNon 11-18-2024 CNPN Normal [facility] Fibrinogen PPP-mCncon 2024 Fibrinogen Coag (PPP) [Mass/Vol] 104 mg/dL Low 200-400 [facility] Comment on above: Order Comment: Speci men Type: BLOOD SPECIMENOrdering Facility: [facility] Address: [address] [place] [address] Performed By: #### 3 255-7, 63113-7 ####[facility] LABCLIA [id number] [place] [address] [place] Hepatic function 2000 panelo n 11-18-2024 Albumin [Mass/Vol] 2.6 g/dL Low 3.9-4.9 [facility] Comment on above: Order Comment: Speci men Type: BLOOD SPECIMENOrdering Facility: [facility] Address: [address] [place] [address] Performed By: #### 2 4321-2, 92266-5, 2777-1 ####[facility] LABCLIA [id number] [place] [address] [place] ALP [Catalytic activity/Vol] 245 U/L High 38-113 [facility] Comment on above: Order Comment: Speci men Type: BLOOD SPECIMENOrdering Facility: [facility] Address: [address] [place] [address] Performed By: #### 2 4321-2, 12028-2, 2776- ####[facility] LABCLIA [id number] [address] [address] [place] ALT [Catalytic activity/Vol] 31 U/L Normal 10-54 [facility] Comment on above: Order Comment: Speci men Type: BLOOD SPECIMENOrdering Facility: [facility] Address: [address] [place] [address] Performed By: #### 2 4321-2, 28527-7, 2776- ####[facility] LABCLIA [id number] [place] [id number] [place] AST [Catalytic activity/Vol] 52 U/L High 14-40 [facility] Comment on above: Order Comment: Speci men Type: BLOOD SPECIMENOrdering Facility: [facility] Address: [address] [place] [address] Performed By: #### 2 432-2, 64347-8, 2776-08 ####[facility] LABCLIA [id number] [address] [address] [place] Bilirubin [Mass/Vol] 1.2 mg/dL Normal 0.2-1.3 [facility] Comment on above: Order Comment: Speci men Type: BLOOD SPECIMENOrdering Facility: [facility] Address: [address] [place] [address] Performed By: #### 2 4321-2, 09937-5, 2776-08 ####[facility] LABCLIA [id number] [address] [address] [place] Bilirubin.conjugated [Mass/Vol] 0.7 mg/dL High <0.3 [facility] Comment on above: Order Comment: Speci men Type: BLOOD SPECIMENOrdering Facility: [facility] Address: [address] [place] [address] Performed By: #### 2 4321-2, 60527-9, 2776- ####[facility] LABCLIA [id number] [place] [address] [place] Protein [Mass/Vol] 5.0 g/dL Low 6.3-8.0 [facility] Comment on above: Order Comment: Speci men Type: BLOOD SPECIMENOrdering Facility: [facility] Address: [address] [place] [address] Performed By: #### 2 4321-2, 84861-6, 2777-1 ####[facility] [id number] [place] [address] [place] NURSING PROGon 11-18-2024 NURSING PROG Normal [facility] PT panel Coag (PPP)on 2024 INR Coag (PPP) [Relative time] 2.0 {INR} High 0.9-1.3 [facility] Comment on above: Order Comment: Speci james Type: BLOOD SPECIMENOrdering Facility: [facility] Address: [address] [place] [address] Result Comment: Sarah min K Antagonist (VKA) Therapeutic Range: INR 2 to 3 (Target INR of 2.5)Note: For patients treated with VKA drugs, such as warfarin, the [place] [employer] 2012 Guideline recommends [...] 3).Tammi GH, et al. Chest 2012, 141:7S-47SHector RA et al. [facility] 2017, 70: 252-289 Performed By: #### 3 255-7, 88073-0 ####[facility] LABIA [id number] [place] [address] [place] PT Coag (PPP) [Time] 20.9 s High 9.7-13.0 [facility] Comment on above: Order Comment: Speci men Type: BLOOD SPECIMENOrdering Facility: [facility] Address: [address] [place] [address] Performed By: #### 3 255-7, 65442-6 ####[facility] LABCLIA [id number] [place] [address] [place] Phosphate SerPl-mCncon 11-18 Phosphate [Mass/Vol] 2.4 mg/dL Low 2.7-4.8 [facility] Comment on above: Order Comment: Speci men Type: BLOOD SPECIMENOrdering Facility: [facility] Address: [address] [place] [address] Performed By: #### 2 4321-2, 12819-3, 2777-1 ####[facility] LABCLIA [id number] [place] [address] [place] TYPE + SCREENon 11-18-2024 ABO O Normal [facility] Comment on above: Order Comment: Speci men Type: BLOOD SPECIMENOrdering Facility: [facility] Address: [address] [place] [address] Performed By: #### T SCR ####[facility] BLOOD BANKCLIA [id number] [place] [address] [place] Rh Nom (Bld) Positive Normal [facility] Comment on above: Order Comment: Speci men Type: BLOOD SPECIMENOrdering Facility: [facility] Address: [address] [place] [address] Performed By: #### T SCR ####[facility] BLOOD BANKCLIA [id number] [place] [address] [place] TYPE AND SCREEN EXPIRATION 11/21/2024 23:59 Normal [facility] Comment on above: Order Comment: Speci men Type: BLOOD SPECIMENOrdering Facility: [facility] Address: [address] [place] [address] Performed By: #### T SCR ####[facility] BLOOD [facility] [id number] [place] [address] [place] Urinalysis complete panel (U )on 11-18-2024 BACTERIA UL 1671.0 uL High Negative [facility] Comment on above: Order Comment: Speci men Type: URINE SPECIMENOrdering Facility: [facility] Address: [address] [place] [address] Performed By: #### 2 4356-8, 630-4 ####[facility] LABCLIA [id number] [place] [address] [place] Bilirubin Ql (U) 2+ Abnormal Negative [facility] Comment on above: Order Comment: Speci men Type: URINE SPECIMENOrdering Facility: [facility] Address: [address] [place] [address] Result Comment: Sugg est correlation with clinical findings and serum bilirubin if clinically indicated. Performed By: #### 2 4356-8, 630-4 ####[facility] LABCLIA [id number] [place] [address] [place] CALCIUM OXALATE CRYSTALS (UA) Few Abnormal None Seen [facility] Comment on above: Order Comment: Speci men Type: URINE SPECIMENOrdering Facility: [facility] Address: [address] [place] [address] Performed By: #### 2 4356-8, 630-4 ####[facility] LABCLIA [id number] [place] [address] [place] Clarity (Unsp spec) Turbid Abnormal Clear [facility] Comment on above: Order Comment: Speci men Type: URINE SPECIMENOrdering Facility: [facility] Address: [address] [place] [address] Performed By: #### 2 4356-8, 630-4 ####[facility] LABCLIA [id number] [address], [place] [address] [place] Color (U) Red Abnormal Yellow [facility] Comment on above: Order Comment: Speci men Type: URINE SPECIMENOrdering Facility: [facility] Address: [address] [place] [address] Performed By: #### 2 4356-8, 630-4 ####[facility] LABCLIA [id number] [address], [address] [place] Epithelial cells LM.HPF (Urine sed) [#/Area] None Seen Normal [facility] Comment on above: Order Comment: Speci men Type: URINE SPECIMENOrdering Facility: [facility] Address: [address] [place] [address] Performed By: #### 2 4356-8, 630-4 ####[facility] LABCLIA [id number] [address] [place] Glucose Test strip (U) [Mass/Vol] Negative Normal Negative [facility] Comment on above: Order Comment: Speci men Type: URINE SPECIMENOrdering Facility: [facility] Address: [address] [place] [address] Performed By: #### 2 4356-8, 630-4 ####[facility] LABCLIA [id number] [place] [address] [place] Hemoglobin Ql (U) 2+ Abnormal Negative [facility] Comment on above: Order Comment: Speci men Type: URINE SPECIMENOrdering Facility: [facility] Address: [address] [place] [address] Performed By: #### 2 4356-8, 630-4 ####[facility] LABCLIA [id number] [address], [facility] [place] Hyaline casts (Urine sed) [#/Area] 0 /[LPF] Normal 0 /LPF [facility] Comment on above: Order Comment: Speci men Type: URINE SPECIMENOrdering Facility: [facility] Address: [address] [place] [address] Performed By: #### 2 4356-8, 630-4 ####[facility] LABCLIA [id number] [address] [place] [address] [place] Ketones Ql (U) Negative Normal Negative [facility] Comment on above: Order Comment: Speci men Type: URINE SPECIMENOrdering Facility: [facility] Address: [address] [place] [address] Performed By: #### 2 4356-8, 630-4 ####[facility] LABCLIA [id number] [address], [facility] [place] Leukocyte esterase Test strip Ql (U) 3+ Abnormal Negative [facility] Comment on above: Order Comment: Speci men Type: URINE SPECIMENOrdering Facility: [facility] Address: [address] [place] [address] Performed By: #### 2 4356-8, 630-4 ####[facility] LABCLIA [id number] [address], [facility] [place] Nitrite Ql (U) Negative Normal Negative [facility] Comment on above: Order Comment: Speci men Type: URINE SPECIMENOrdering Facility: [facility] Address: [address] [place] [address] Result Comment: Resu lt rechecked. Performed By: #### 2 4356-8, 630-4 ####[facility] LABCLIA [id number] [address] [place] [address] [place] pH (U) 5.0 [pH] Normal <8.5 [facility] Comment on above: Order Comment: Speci men Type: URINE SPECIMENOrdering Facility: [facility] Address: [address] [place] [address] Performed By: #### 2 4356-8, 630-4 ####[facility] LABCLIA [id number] [place] [address] [place] Protein (U) [Mass/Vol] 2+ Abnormal Negative [facility] Comment on above: Order Comment: Speci men Type: URINE SPECIMENOrdering Facility: [facility] Address: [address] [place] [address] Performed By: #### 2 4356-8, 630-4 ####[facility] LABCLIA [id number] [place] [address] [place] RBC LM.HPF (Urine sed) [#/Area] /[HPF] Abnormal 0-2 /HPF [facility] Comment on above: Order Comment: Speci men Type: URINE SPECIMENOrdering Facility: [facility] Address: [address] [place] [address] Performed By: #### 2 4356-8, 630-4 ####[facility] LABIA [id number] [address] STATES [facility] Specific gravity (U) [Rel density] 1.021 Normal 1.005-1.030 [facility] Comment on above: Order Comment: Speci men Type: URINE SPECIMENOrdering Facility: [facility] Address: [address] [place] [address] Performed By: #### 2 4356-8, 630-4 ####[facility] LABIA [id number] [address] [place] Urobilinogen Ql (U) 0.2 EU/dL Normal 0.2-1.0 EU/dL [facility] Comment on above: Order Comment: Speci men Type: URINE SPECIMENOrdering Facility: [facility] Address: [address] [place] [address] Performed By: #### 2 4356-8, 630-4 ####[facility] LABCLIA [id number] [place] [address] [place] WBC LM.HPF (Urine sed) [#/Area] /[HPF] Abnormal 0-5 /HPF [facility] Comment on above: Order Comment: Speci men Type: URINE SPECIMENOrdering Facility: [facility] Address: [address] [place] [address] Performed By: #### 2 4356-8, 630-4 ####[facility] LABCLIA [id number] [place] [address] [place] Yeast.budding LM.HPF (Urine sed) [#/Area] Present Abnormal None Seen [facility] Comment on above: Order Comment: Speci men Type: URINE SPECIMENOrdering Facility: [facility] Address: [address] [place] [address] Performed By: #### 2 4356-8, 630-4 ####[facility] LABIA [id number] [place] [address] [place] Basic metabolic 2000 panelon 11-17-2024 Anion gap [Moles/Vol] 10 mmol/L Normal 8-15 [facility] Comment on above: Order Comment: Speci men Type: BLOOD SPECIMENOrdering Facility: [facility] Address: [address] [place] [address] Performed By: #### 2 4321-2, 49608-9, 2777-1 ####[facility] LABCLIA [id number] [place] [id number] [place] Calcium [Mass/Vol] 8.9 mg/dL Normal 8.5-10.2 [facility] Comment on above: Order Comment: Speci men Type: BLOOD SPECIMENOrdering Facility: [facility] Address: [address] [place] [address] Performed By: #### 2 4321-2, 97149-4, 2777-1 ####[facility] LABCLIA [id number] [address] [address] [place] Chloride [Moles/Vol] 105 mmol/L Normal 98-107 [facility] Comment on above: Order Comment: Speci men Type: BLOOD SPECIMENOrdering Facility: [facility] Address: [address] [place] [address] Performed By: #### 2 4321-2, 06435-3, 27702-01 ####[facility] LABCLIA [id number] [place] [address] [place] CO2 [Moles/Vol] 17 mmol/L Low 22-30 [facility] Comment on above: Order Comment: Speci men Type: BLOOD SPECIMENOrdering Facility: [facility] Address: [address] [place] [address] Performed By: #### 2 4321-2, 77211-6, 2776-08 ####[facility] LABIA [id number] [place] [address] [place] Creatinine [Mass/Vol] 0.77 mg/dL Normal 0.73-1.22 [facility] Comment on above: Order Comment: Speci men Type: BLOOD SPECIMENOrdering Facility: [facility] Address: [address] [place] [address] Performed By: #### 2 4321-2, 58183-9, 2776-08 ####[facility] LABIA [id number] [place] [address] [place] Creatinine and Glomerular filtration rate.predicted panel (S/P/Bld) 104 mL/min/1.73m??? Normal >=60 [facility] Comment on above: Order Comment: Speci men Type: BLOOD SPECIMENOrdering Facility: [facility] Address: [address] [place] [address] Result Comment: Patric mated Glomerular Filtration Rate [...] actual GFR. Performed By: #### 2 4321-2, 74169-8, 2776-08 ####[facility] LABCLIA [id number] [place] [address] [place] Glucose [Mass/Vol] 291 mg/dL High 74-99 [facility] Comment on above: Order Comment: Speci men Type: BLOOD SPECIMENOrdering Facility: [facility] Address: [address] [place] [address] Result Comment: The [place] [employer] (ADA) provides guidance for cutoff [...] Standards of Medical Care in Diabetes 2016, [place] [employer]. Diabetes Care. 2016.39(Suppl 1). Performed By: #### 2 4321-2, 03309-3, 2776- ####[facility] LABIA [id number] [place] [address] [place] Potassium [Moles/Vol] 4.5 mmol/L Normal 3.7-5.1 [facility] Comment on above: Order Comment: Speci men Type: BLOOD SPECIMENOrdering Facility: [facility] Address: [address] [place] [address] Performed By: #### 2 4321-2, 34435-9, 2776- ####[facility] LABIA [id number] [place] [address] [place] Sodium [Moles/Vol] 132 mmol/L Low 136-144 [facility] Comment on above: Order Comment: Speci men Type: BLOOD SPECIMENOrdering Facility: [facility] Address: [address] [place] [address] Performed By: #### 2 4321-2, 49338-8, 2777-1 ####[facility] LABCLIA [id number] [address] [address] [place] Urea nitrogen [Mass/Vol] 9 mg/dL Normal 9-24 [facility] Comment on above: Order Comment: Speci men Type: BLOOD SPECIMENOrdering Facility: [facility] Address: [address] [place] [address] Performed By: #### 2 4321-2, 31116-8, 2777-1 ####[facility] LABCLIA [id number] [place] [address] [place] CASE MANAGEMon 11-17-2024 CASE MANAGEM Normal [facility] CBC W Auto Differential pane l (Bld)on 11-17-2024 Basophils (Bld) [#/Vol] 10*3/uL Normal <0.11 [facility] Comment on above: Order Comment: Speci men Type: BLOOD SPECIMENOrdering Facility: [facility] Address: [address] [place] [address] Performed By: #### 5 7021-8 ####[facility] LABCLIA [id number] [place] [address] [place] Basophils/100 WBC (Bld) 0.0 % Normal C [facility] Comment on above: Order Comment: Speci men Type: BLOOD SPECIMENOrdering Facility: [facility] Address: [address] [place] [address] Performed By: #### 5 7021-8 ####[facility] LABCLIA [id number] [place] [id number] [place] Differential cell count method Nom (Bld) Auto Normal [facility] Comment on above: Order Comment: Speci men Type: BLOOD SPECIMENOrdering Facility: [facility] Address: [address] [place] [address] Performed By: #### 5 7021-8 ####[facility] LABCLIA [id number] [address], [place] [address] [place] Eosinophils (Bld) [#/Vol] 10*3/uL Normal <0.46 [facility] Comment on above: Order Comment: Speci men Type: BLOOD SPECIMENOrdering Facility: [facility] Address: [address] [place] [address] Performed By: #### 5 7021-8 ####[facility] LABCLIA [id number] [facility] [address], [place] [address] [place] Eosinophils/100 WBC (Bld) 0.0 % Normal [facility] Comment on above: Order Comment: Speci men Type: BLOOD SPECIMENOrdering Facility: [facility] Address: [address] [place] [address] Performed By: #### 5 7021-8 ####[facility] LABCLIA [id number] [address], [place] [address] [place] Erythrocyte distribution width (RBC) [Ratio] 16.9 % High 11.5-15.0 [facility] Comment on above: Order Comment: Speci men Type: BLOOD SPECIMENOrdering Facility: [facility] Address: [address] [place] [address] Performed By: #### 5 7021-8 ####[facility] LABCLIA [id number] [address], [place] [address] [place] Hematocrit (Bld) [Volume fraction] 22.7 % Low 39.0-51.0 [facility] Comment on above: Order Comment: Speci men Type: BLOOD SPECIMENOrdering Facility: [facility] Address: [address] [place] [address] Performed By: #### 5 7021-8 ####[facility] LABCLIA [id number] [address], [facility] [place] Hemoglobin (Bld) [Mass/Vol] 7.7 g/dL Low 13.0-17.0 [facility] Comment on above: Order Comment: Speci men Type: BLOOD SPECIMENOrdering Facility: [facility] Address: [address] [place] [address] Performed By: #### 5 7021-8 ####[facility] LABCLIA [id number] [place] [address] [place] Immature granulocytes (Bld) [#/Vol] 0.03 10*3/uL Normal <0.10 [facility] Comment on above: Order Comment: Speci men Type: BLOOD SPECIMENOrdering Facility: [facility] Address: [address] [place] [address] Performed By: #### 5 7021-8 ####[facility] LABCLIA [id number] [place] [address] [place] Immature granulocytes/100 WBC (Bld) 0.9 % Normal [facility] Comment on above: Order Comment: Speci men Type: BLOOD SPECIMENOrdering Facility: [facility] Address: [address] [place] [address] Performed By: #### 5 7021-8 ####[facility] LABCLIA [id number] [place] [address] [place] Lymphocytes (Bld) [#/Vol] 0.28 10*3/uL Low 1.00-4.00 [facility] Comment on above: Order Comment: Speci men Type: BLOOD SPECIMENOrdering Facility: [facility] Address: [address] [place] [address] Performed By: #### 5 7021-8 ####[facility] LABCLIA [id number] [place] [address] [place] Lymphocytes/100 WBC (Bld) 8.3 % Normal [facility] Comment on above: Order Comment: Speci men Type: BLOOD SPECIMENOrdering Facility: [facility] Address: [address] [place] [address] Performed By: #### 5 7021-8 ####[facility] LABIA [id number] [place] [address] [place] MCH (RBC) [Entitic mass] 31.7 pg Normal 26.0-34.0 [facility] Comment on above: Order Comment: Speci men Type: BLOOD SPECIMENOrdering Facility: [facility] Address: [address] [place] [address] Performed By: #### 5 7021-8 ####[facility] LABIA [id number] [place] [address] [place] MCHC (RBC) [Mass/Vol] 33.9 g/dL Normal 30.5-36.0 [facility] Comment on above: Order Comment: Speci men Type: BLOOD SPECIMENOrdering Facility: [facility] Address: [address] [place] [address] Performed By: #### 5 7021-8 ####[facility] [id number] [place] [address] [place] MCV (RBC) [Entitic vol] 93.4 fL Normal 80.0-100.0 C [facility] Comment on above: Order Comment: Speci men Type: BLOOD SPECIMENOrdering Facility: [facility] Address: [address] [place] [address] Performed By: #### 5 7021-8 ####[facility] [id number] [place] [address] [place] Monocytes (Bld) [#/Vol] 0.17 10*3/uL Normal <0.87 [facility] Comment on above: Order Comment: Speci men Type: BLOOD SPECIMENOrdering Facility: [facility] Address: [address] [place] [address] Performed By: #### 5 7021-8 ####[facility] [id number] [id number] [address] [place] Monocytes/100 WBC (Bld) 5.0 % Normal [facility] Comment on above: Order Comment: Speci men Type: BLOOD SPECIMENOrdering Facility: [facility] Address: [address] [place] [address] Performed By: #### 5 7021-8 ####[facility] LABCLIA [id number] [place] [address] [place] Neutrophils (Bld) [#/Vol] 2.89 10*3/uL Normal 1.45-7.50 [facility] Comment on above: Order Comment: Speci men Type: BLOOD SPECIMENOrdering Facility: [facility] Address: [address] [place] [address] Performed By: #### 5 7021-8 ####[facility] LABCLIA [id number] [place] [address] [place] Neutrophils/100 WBC (Bld) 85.8 % Normal [facility] Comment on above: Order Comment: Speci men Type: BLOOD SPECIMENOrdering Facility: [facility] Address: [address] [place] [address] Performed By: #### 5 7021-8 ####[facility] LABCLIA [id number] [place] [address] [place] Nucleated RBC (Bld) [#/Vol] 10*3/uL Normal <0.01 [facility] Comment on above: Order Comment: Speci men Type: BLOOD SPECIMENOrdering Facility: [facility] Address: [address] [place] [address] Performed By: #### 5 7021-8 ####[facility] LABCLIA [id number] [place] [address] [place] Nucleated RBC/100 WBC (Bld) [Ratio] 0.0 /100 WBC Normal [facility] Comment on above: Order Comment: Speci men Type: BLOOD SPECIMENOrdering Facility: [facility] Address: [address] [place], [place] [address] Performed By: #### 5 7021-8 ####[facility] LABCLIA [id number] [place] [id number] [place] Platelet mean volume (Bld) [Entitic vol] 12.0 fL Normal 9.0-12.7 [facility] Comment on above: Order Comment: Speci men Type: BLOOD SPECIMENOrdering Facility: [facility] Address: [address] [place] [address] Performed By: #### 5 7021-8 ####[facility] LABCLIA [id number] [place] [address] [place] Platelets (Bld) [#/Vol] 57 10*3/uL Low 150-400 C [facility] Comment on above: Order Comment: Speci men Type: BLOOD SPECIMENOrdering Facility: [facility] Address: [address] [place] [address] Performed By: #### 5 7021-8 ####[facility] [facility] [id number] [place] [id number] [place] RBC (Bld) [#/Vol] 2.43 10*6/uL Low 4.20-6.00 [facility] Comment on above: Order Comment: Speci men Type: BLOOD SPECIMENOrdering Facility: [facility] Address: [address] [place] [address] Performed By: #### 5 7021-8 ####[facility] LABCLIA [id number] [place] [id number] [place] WBC (Bld) [#/Vol] 3.37 10*3/uL Low 3.70-11.00 [facility] Comment on above: Order Comment: Speci men Type: BLOOD SPECIMENOrdering Facility: [facility] Address: [address] [place] [address] Performed By: #### 5 7021-8 ####[facility]CLIA [id number] [place] [address] [place] CONSULT PROGon 11-17-2024 CONSULT PROG Normal [facility] Fact Xa PPP-aCncon Coagulation factor X activated act Coag Qn (PPP) <0.10 Normal <0.10 [facility] Comment on above: Order Comment: Speci men Type: BLOOD SPECIMENOrdering Facility: [facility] Address: [address] [place] [address] Result Comment: The recommended therapeutic range for treatment of venous and arterial thrombosis with intravenous unfractionated heparin is an anti Xa activity level of 0.3 to 0.7 IU/mL. In patients with concomitant therapy with thrombolytic agents and/or platelet glycoprotein IIb/IIIa antagonists, the recommended therapeutic range is an anti Xa activity level of 0.2 to 0.5 IU/mL. Performed By: #### 3 217-7 ####[facility] LABIA [id number] [place] [address] [place] Fibrinogen PPP-mCncon 2024 Fibrinogen Coag (PPP) [Mass/Vol] 114 mg/dL Low 200-400 [facility] Comment on above: Order Comment: Speci men Type: BLOOD SPECIMENOrdering Facility: [facility] Address: [address] [place] [address] Performed By: #### 3 255-7, 12873-5 ####[facility] [id number] [place] [address] [place] Hepatic function 2000 panelo n 11-17-2024 Albumin [Mass/Vol] 2.7 g/dL Low 3.9-4.9 [facility] Comment on above: Order Comment: Speci men Type: BLOOD SPECIMENOrdering Facility: [facility] Address: [address] [place] [address] Performed By: #### 2 4321-2, 25633-5, 2777-1 ####[facility] LABIA [id number] [address] [address] [place] [address] [place] ALP [Catalytic activity/Vol] 276 U/L High 38-113 [facility] Comment on above: Order Comment: Speci men Type: BLOOD SPECIMENOrdering Facility: [facility] Address: [address] [place] [address] Performed By: #### 2 4321-2, 50327-0, 2777-1 ####[facility]CL[facility] [id number] [place] [address] [place] ALT [Catalytic activity/Vol] 35 U/L Normal 10-54 [facility] Comment on above: Order Comment: Speci men Type: BLOOD SPECIMENOrdering Facility: [facility] Address: [address] [place] [address] Performed By: #### 2 4321-2, 43719-4, 277-1 ####[facility]CLIA [id number] [place] [address] [place] AST [Catalytic activity/Vol] 80 U/L High 14-40 [facility] Comment on above: Order Comment: Speci men Type: BLOOD SPECIMENOrdering Facility: [facility] Address: [address] [place] [address] Performed By: #### 2 4321-2, 63063-8, 277- ####[facility]CLIA [id number] [place] [id number] [place] Bilirubin [Mass/Vol] 1.8 mg/dL High 0.2-1.3 [facility] Comment on above: Order Comment: Speci men Type: BLOOD SPECIMENOrdering Facility: [facility] Address: [address] [place] [address] Performed By: #### 2 4321-2, 50035-9, 277-1 ####[facility]CLIA [id number] [address] [address] [place] Bilirubin.conjugated [Mass/Vol] 1.0 mg/dL High <0.3 [facility] Comment on above: Order Comment: Speci men Type: BLOOD SPECIMENOrdering Facility: [facility] Address: [address] [place] [address] Performed By: #### 2 4321-2, 20011-4, 2777-1 ####[facility] LABCLIA [id number] [place] [address] [place] Protein [Mass/Vol] 5.2 g/dL Low 6.3-8.0 [facility] Comment on above: Order Comment: Speci men Type: BLOOD SPECIMENOrdering Facility: [facility] Address: [address] [place] [address] Performed By: #### 2 4321-2, 09100-0, 27702-01 ####[facility] LABIA [id number] [place] [address] [place] NUTRITIONon 11-17-2024 NUTRITION Normal [facility] PSA/PROSTATE SPECIFIC ANTIGE N SCREENINGon 11-17-2024 Prostate specific Ag [Mass/Vol] 0.52 ng/mL Normal <2.60 [facility] Comment on above: Order Comment: Speci men Type: BLOOD SPECIMENOrdering Facility: [facility] Address: [address] [place] [address] Result Comment: Tota l PSA test methodology used is the Electrochemiluminescence Immunoassay by [employer]. Total PSA values by differing methodologies cannot be interchanged. Performed By: #### P SAS1 ####[facility] LABIA [id number] [place] [address] [place] PT panel Coag (PPP)on 2024 INR Coag (PPP) [Relative time] 2.0 {INR} High 0.9-1.3 [facility] Comment on above: Order Comment: Speci men Type: BLOOD SPECIMENOrdering Facility: [facility] Address: [address] [place] [address] Result Comment: Sarah min K Antagonist (VKA) Therapeutic Range: INR 2 to 3 (Target INR of 2.5)Note: For patients treated with VKA drugs, such as warfarin, the [place] [employer] 2012 Guideline recommends [...] al. Chest 2012, 141:7S-47SNishimura RA, et al. [facility] 2017, 70: 252-289 Performed By: #### 3 255-7, 54303-9 ####[facility] LABIA [id number] [place] [address] [place] PT Coag (PPP) [Time] 20.6 s High 9.7-13.0 [facility] Comment on above: Order Comment: Speci men Type: BLOOD SPECIMENOrdering Facility: [facility] Address: [address] [place] [address] Performed By: #### 3 255-7, 92625-3 ####[facility] [id number] [place] [address] [place] PTT, ANTICOAGULANT THERAPYon 11-17-2024 aPTT Coag (PPP) [Time] 41.6 s High 23.0-32.4 [facility] Comment on above: Order Comment: Speci men Type: BLOOD SPECIMENOrdering Facility: [facility] Address: [address] [place] [address] Performed By: #### P TTAC ####[facility] LABIA [id number] [place] [id number] [place] Phosphate SerPl-mCncon 11-17 Phosphate [Mass/Vol] 1.9 mg/dL Low 2.7-4.8 [facility] Comment on above: Order Comment: Ezekiel ramirez Type: BLOOD SPECIMENOrdering Facility: [facility] Address: [address] [place] [address] Performed By: #### 2 4321-2, 00641-7, 2777-1 ####[facility]CLIA [id number] [place] [address] [place] THERAPY NTon 11-17-2024 THERAPY NT Normal [facility] aPTT PPPon 11-17-2024 aPTT Coag (PPP) [Time] s High 23.0-32.4 [facility] Comment on above: Order Comment: Ezekiel ramirez Type: BLOOD SPECIMENOrdering Facility: [facility] Address: [address] [place] [address] Result Comment: Resu lt rechecked.Sample checked for clot. Performed By: #### 1 4979-9, PTTAC ####[facility]CLIA [id number] [place] [address] [place] ANES POSTPROC EVALon 025 ANES POSTPROC EVAL Normal [facility] ANES PRE-OPon 11-16-2024 ANES PRE-OP Normal [facility] Albumin Fld-mCncon Albumin (Body fld) [Mass/Vol] 0.2 g/dL Normal See Comment [facility] Comment on above: Order Comment: Ezekiel ramirez Type: FLUID SPECIMENOrdering Facility: [facility] Address: [address] [place] [address] Result Comment: Body Fluid Albumin may be [...] document C49A. PAULETTE Diaz: Clinical Laboratory Standards Hooper: 2007.2. Amy [place]. Serum to ascites albumin gradient. UpToDate. 2015. Accessed on November 15, 2015.This test was developed, and its performance characteristics determined by the [facility] Department of Pathology and Laboratory Medicine. It has not been cleared or approved by the FDA. The [facility] Department of Pathology and Laboratory Medicine is regulated under CLIA as qualified to perform high-complexity testing. This test is used for clinical purposes. It should not be regarded as investigational or for research. Performed By: #### 1 795-4, 2881-1, 1747-5 ####[facility] LABCLIA [id number] [place] [address] [place] Fluid Nom (Body fld) Ascites Fluid Normal C [facility] Comment on above: Order Comment: Speci men Type: FLUID SPECIMENOrdering Facility: [facility] Address: [address] [place] [address] Performed By: #### 1 795-4, 2881-, 1745 ####[facility] LABIA [id number] [address] [place] Amylase Fld-cCncon 5 Amylase (Body fld) [Catalytic activity/Vol] 17 U/L Normal See Comment [facility] Comment on above: Order Comment: Speci men Type: FLUID SPECIMENOrdering Facility: [facility] Address: [address] [place] [address] Result Comment: PLEU RAL FLUIDS:Amylase measurement in [...] document C49-A. PAULETTE Diaz: Clinical Laboratory Standards Hooper; 2007.3. Kelby CONCEPCION, John BRAR, Star DJ. Use of cyst fluid CEA, CA19-9, and amylase for evaluation of pancreatic lesions. Clinical Biochemistry. 2009;42:9661-0196.This test was developed, and its performance characteristics determined by the [facility] Department of Pathology and Laboratory Medicine. It has not been cleared or approved by the FDA. The [facility] Department of Pathology and Laboratory Medicine is regulated under CLIA as qualified to perform high-complexity testing. This test is used for clinical purposes. It should not be regarded as investigational or for research. Performed By: #### 1 795-4, 2881-1, 1747-5 ####[facility] [id number] [place] [address] [place] BODY FLUID CELL COUNTon 04-1 Clarity (Unsp spec) Clear Normal Clear [facility] Comment on above: Order Comment: Speci men Type: FLUID SPECIMENOrdering Facility: [facility] Address: [address] [place] [address] Performed By: #### C CBF, [id number] ####[facility]CLIA [id number] [place] [address] [place] Color (Body fld) Yellow Normal Yellow [facility] Comment on above: Order Comment: Speci men Type: FLUID SPECIMENOrdering Facility: [facility] Address: [address] [place] [address] Performed By: #### C CBF, [id number] ####[facility]CL[facility] [id number] [facility] [address], [facility] [place] RBC Manual cnt (Body fld) [#/Vol] 3000 /uL High <2000 [facility] Comment on above: Order Comment: Speci men Type: FLUID SPECIMENOrdering Facility: [facility] Address: [address] [place] [address] Performed By: #### C CBF, [id number] ####[facility]CL[facility] [id number] [facility] [address], [place] [address] [place] Specimen source Nom (Body fld) Ascites Fluid Normal [facility] Comment on above: Order Comment: Speci men Type: FLUID SPECIMENOrdering Facility: [facility] Address: [address] [place] [address] Performed By: #### C CBF, [id number] ####[facility]CL[facility] [id number] [facility] [address], [place] [address] [place] WBC Manual cnt (Body fld) [#/Vol] 58 /uL Normal <1000 [facility] Comment on above: Order Comment: Speci men Type: FLUID SPECIMENOrdering Facility: [facility] Address: [address] [place] [address] Performed By: #### C CBF, [id number] ####[facility]CL[facility] [id number] [facility] [place] [id number] [place] Bacteria Fld Culton 11-17-19 25 Bacteria identified Cx Nom (Body fld) CULTURE, BODY FLD: No growth GRAM STAIN: No organisms seen Few Polymorphonuclear leukocytes Gram stain performed on cytospun specimen. Gram stain from primary specimen Normal [facility] Comment on above: Performed By: #### 6 35-3, 611-4 ####[facility] LABCLIA [id number] [address] [address] [id number] [address] [place] Bacteria Spec Anaerobe Culto n 11-16-2024 Bacteria identified Anaer cx Nom (Unsp spec) Negative Normal [facility] Comment on above: Performed By: #### 6 35-3, 611-4 ####[facility]CLIA [id number] [address] [address] [place] Basic metabolic 2000 panelon 11-16-2024 Anion gap [Moles/Vol] 10 mmol/L Normal 8-15 [facility] Comment on above: Order Comment: Speci men Type: BLOOD SPECIMENOrdering Facility: [facility] Address: [address] [place] [address] Performed By: #### 2 4321-2, 45128-0, 2777-1 ####[facility] LABCLIA [id number] [place] [id number] [place] Calcium [Mass/Vol] 8.4 mg/dL Low 8.5-10.2 [facility] Comment on above: Order Comment: Speci men Type: BLOOD SPECIMENOrdering Facility: [facility] Address: [address] [place], [place] [address] Performed By: #### 2 4321-2, 85447-3, 2777-1 ####[facility] LABCLIA [id number] [place] [id number] [place] Chloride [Moles/Vol] 102 mmol/L Normal 98-107 [facility] Comment on above: Order Comment: Speci men Type: BLOOD SPECIMENOrdering Facility: [facility] Address: [address] [place] [address] Performed By: #### 2 4321-2, 52116-4, 2777-1 ####[facility] LABCLIA [id number] [address] [address] [place] CO2 [Moles/Vol] 18 mmol/L Low 22-30 [facility] Comment on above: Order Comment: Speci men Type: BLOOD SPECIMENOrdering Facility: [facility] Address: [address] [place] [address] Performed By: #### 2 4321-2, 22099-9, 2776-08 ####[facility] LABCLIA [id number] [address] [address] [place] Creatinine [Mass/Vol] 0.73 mg/dL Normal 0.73-1.22 [facility] Comment on above: Order Comment: Speci men Type: BLOOD SPECIMENOrdering Facility: [facility] Address: [address] [place], [place] [address] Performed By: #### 2 4321-2, 84067-0, 2776-08 ####[facility] LABIA [id number] [address] [address] [place] Creatinine and Glomerular filtration rate.predicted panel (S/P/Bld) 105 mL/min/1.73m??? Normal >=60 [facility] Comment on above: Order Comment: Speci men Type: BLOOD SPECIMENOrdering Facility: [facility] Address: [address] [place] [address] Result Comment: Patric mated Glomerular Filtration Rate [...] actual GFR. Performed By: #### 2 4321-2, 24178-6, 2776-08 ####[facility] LABIA [id number] [address] [address] [place] Glucose [Mass/Vol] 181 mg/dL High 74-99 [facility] Comment on above: Order Comment: Speci men Type: BLOOD SPECIMENOrdering Facility: [facility] Address: [address] [place], [place] [address] Result Comment: The [place] [employer] (ADA) provides guidance for cutoff [...] Standards of Medical Care in Diabetes 2016, [place] [employer]. Diabetes Care. 2016.39(Suppl 1). Performed By: #### 2 4321-2, 70441-4, 2777- ####[facility] LABIA [id number] [place] [address] [place] Potassium [Moles/Vol] 3.6 mmol/L Low 3.7-5.1 [facility] Comment on above: Order Comment: Speci men Type: BLOOD SPECIMENOrdering Facility: [facility] Address: [address] [place] [address] Performed By: #### 2 4321-2, 30906-4, 2776-08 ####[facility] LABIA [id number] [place] [address] [place] Sodium [Moles/Vol] 130 mmol/L Low 136-144 [facility] Comment on above: Order Comment: Speci men Type: BLOOD SPECIMENOrdering Facility: [facility] Address: [address] [place] [address] Performed By: #### 2 4321-2, 94392-3, 277- ####[facility] LABIA [id number] [place] [address] [place] Urea nitrogen [Mass/Vol] 9 mg/dL Normal 9-24 [facility] Comment on above: Order Comment: Speci men Type: BLOOD SPECIMENOrdering Facility: [facility] Address: [address] [place] [address] Performed By: #### 2 432-2, 81514-5, 2777-1 ####[facility] LABCLIA [id number] [place] [address] [place] CBC W Auto Differential pane l (Bld)on 11-16-2024 Basophils (Bld) [#/Vol] 0.05 10*3/uL Normal <0.11 [facility] Comment on above: Order Comment: Speci men Type: BLOOD SPECIMENOrdering Facility: [facility] Address: [address] [place] [address] Performed By: #### 5 7021-8 ####[facility] LABCLIA [id number] [place] [address] [place] Basophils/100 WBC (Bld) 0.8 % Normal C [facility] Comment on above: Order Comment: Speci men Type: BLOOD SPECIMENOrdering Facility: [facility] Address: [address] [place] [address] Performed By: #### 5 7021-8 ####[facility] LABCLIA [id number] [place] [address] [place] Differential cell count method Nom (Bld) Auto Normal [facility] Comment on above: Order Comment: Speci men Type: BLOOD SPECIMENOrdering Facility: [facility] Address: [address] [place] [address] Performed By: #### 5 7021-8 ####[facility] LABCLIA [id number] [place] [id number] [place] Eosinophils (Bld) [#/Vol] 0.22 10*3/uL Normal <0.46 [facility] Comment on above: Order Comment: Speci men Type: BLOOD SPECIMENOrdering Facility: [facility] Address: [address] [place] [address] Performed By: #### 5 7021-8 ####[facility] LABCLIA [id number] [place] [address] [place] Eosinophils/100 WBC (Bld) 3.6 % Normal [facility] Comment on above: Order Comment: Speci men Type: BLOOD SPECIMENOrdering Facility: [facility] Address: [address] [place] [address] Performed By: #### 5 7021-8 ####[facility] LABCLIA [id number] [place] [address] [place] Erythrocyte distribution width (RBC) [Ratio] 16.7 % High 11.5-15.0 [facility] Comment on above: Order Comment: Speci men Type: BLOOD SPECIMENOrdering Facility: [facility] Address: [address] [place] [address] Performed By: #### 5 7021-8 ####[facility] LABCLIA [id number] [place] [address] [place] Hematocrit (Bld) [Volume fraction] 24.0 % Low 39.0-51.0 [facility] Comment on above: Order Comment: Speci men Type: BLOOD SPECIMENOrdering Facility: [facility] Address: [address] [place] [address] Performed By: #### 5 7021-8 ####[facility] LABCLIA [id number] [place] [address] [place] Hemoglobin (Bld) [Mass/Vol] 8.3 g/dL Low 13.0-17.0 [facility] Comment on above: Order Comment: Speci men Type: BLOOD SPECIMENOrdering Facility: [facility] Address: [address] [place] [address] Performed By: #### 5 7021-8 ####[facility] LABCLIA [id number] [place] [address] [place] Immature granulocytes (Bld) [#/Vol] 0.05 10*3/uL Normal <0.10 [facility] Comment on above: Order Comment: Speci men Type: BLOOD SPECIMENOrdering Facility: [facility] Address: [address] [place] [address] Performed By: #### 5 7021-8 ####[facility] LABCLIA [id number] [place] [address] [place] Immature granulocytes/100 WBC (Bld) 0.8 % Normal [facility] Comment on above: Order Comment: Speci men Type: BLOOD SPECIMENOrdering Facility: [facility] Address: [address] [place] [address] Performed By: #### 5 7021-8 ####[facility] LABCLIA [id number] [place] [address] [place] Lymphocytes (Bld) [#/Vol] 0.75 10*3/uL Low 1.00-4.00 [facility] Comment on above: Order Comment: Speci men Type: BLOOD SPECIMENOrdering Facility: [facility] Address: [address] [place] [address] Performed By: #### 5 7021-8 ####[facility] LABCLIA [id number] [place] [address] [place] Lymphocytes/100 WBC (Bld) 12.4 % Normal [facility] Comment on above: Order Comment: Speci men Type: BLOOD SPECIMENOrdering Facility: [facility] Address: [address] [place] [address] Performed By: #### 5 7021-8 ####[facility] LABCLIA [id number] [place] [address] [place] MCH (RBC) [Entitic mass] 31.9 pg Normal 26.0-34.0 [facility] Comment on above: Order Comment: Speci men Type: BLOOD SPECIMENOrdering Facility: [facility] Address: [address] [place] [address] Performed By: #### 5 7021-8 ####[facility] LABCLIA [id number] [place] [address] [place] MCHC (RBC) [Mass/Vol] 34.6 g/dL Normal 30.5-36.0 [facility] Comment on above: Order Comment: Speci men Type: BLOOD SPECIMENOrdering Facility: [facility] Address: [address] [place] [address] Performed By: #### 5 7021-8 ####[facility] LABCLIA [id number] [place] [address] [place] MCV (RBC) [Entitic vol] 92.3 fL Normal 80.0-100.0 [facility] Comment on above: Order Comment: Speci men Type: BLOOD SPECIMENOrdering Facility: [facility] Address: [address] [place] [address] Performed By: #### 5 7021-8 ####[facility] LABCLIA [id number] [place] [address] [place] Monocytes (Bld) [#/Vol] 0.68 10*3/uL Normal <0.87 [facility] Comment on above: Order Comment: Speci men Type: BLOOD SPECIMENOrdering Facility: [facility] Address: [address] [place] [address] Performed By: #### 5 7021-8 ####[facility] LABCLIA [id number] [place] [address] [place] Monocytes/100 WBC (Bld) 11.3 % Normal [facility] Comment on above: Order Comment: Speci men Type: BLOOD SPECIMENOrdering Facility: [facility] Address: [address] [place] [address] Performed By: #### 5 7021-8 ####[facility] LABCLIA [id number] [place] [address] [place] Neutrophils (Bld) [#/Vol] 4.28 10*3/uL Normal 1.45-7.50 [facility] Comment on above: Order Comment: Speci men Type: BLOOD SPECIMENOrdering Facility: [facility] Address: [address] [place] [address] Performed By: #### 5 7021-8 ####[facility] LABCLIA [id number] [place] [address] [place] Neutrophils/100 WBC (Bld) 71.1 % Normal [facility] Comment on above: Order Comment: Speci men Type: BLOOD SPECIMENOrdering Facility: [facility] Address: [address] [place] [address] Performed By: #### 5 7021-8 ####[facility] LABCLIA [id number] [place] [address] [place] Nucleated RBC (Bld) [#/Vol] 10*3/uL Normal <0.01 [facility] Comment on above: Order Comment: Speci men Type: BLOOD SPECIMENOrdering Facility: [facility] Address: [address] [place] [address] Performed By: #### 5 7021-8 ####[facility] LABCLIA [id number] [place] [address] [place] Nucleated RBC/100 WBC (Bld) [Ratio] 0.0 /100 WBC Normal [facility] Comment on above: Order Comment: Speci men Type: BLOOD SPECIMENOrdering Facility: [facility] Address: [address] [place] [address] Performed By: #### 5 7021-8 ####[facility] LABCLIA [id number] [place] [id number] [place] Platelet mean volume (Bld) [Entitic vol] 11.8 fL Normal 9.0-12.7 [facility] Comment on above: Order Comment: Speci men Type: BLOOD SPECIMENOrdering Facility: [facility] Address: [address] [place] [address] Performed By: #### 5 7021-8 ####[facility] LABCLIA [id number] [place] [address] [place] Platelets (Bld) [#/Vol] 59 10*3/uL Low 150-400 C [facility] Comment on above: Order Comment: Speci men Type: BLOOD SPECIMENOrdering Facility: [facility] Address: [address] [place] [address] Result Comment: No c lot detected.Results checked and verified. Performed By: #### 5 7021-8 ####[facility] LABCLIA [id number] [place] [address] [place] RBC (Bld) [#/Vol] 2.60 10*6/uL Low 4.20-6.00 [facility] Comment on above: Order Comment: Speci men Type: BLOOD SPECIMENOrdering Facility: [facility] Address: [address] [place] [address] Performed By: #### 5 7021-8 ####[facility] [id number] [place] [address] [place] WBC (Bld) [#/Vol] 6.03 10*3/uL Normal 3.70-11.00 [facility] Comment on above: Order Comment: Speci men Type: BLOOD SPECIMENOrdering Facility: [facility] Address: [address] [place] [address] Performed By: #### 5 7021-8 ####[facility] LABIA [id number] [place] [address] [place] CONSULT PROGon 11-16-2024 CONSULT PROG Normal [facility] CYTOLOGY NON-GYNon 5 AP DISCLAIMER Normal [facility] Comment on above: Order Comment: Speci men Type: FLUID SPECIMENOrdering Facility: [facility] Address: [address] [place] [address] Result Comment: Shellie pugh Developed Test (LDT) Disclaimer:Performance characteristics of immunohistochemical, immunofluorescent, and chromogenic in-situ hybridization tests have been determined by the performing laboratory within [facility] Pathology and Laboratory Medicine Department ([facility], [facility], [facility], [facility], [facility], [facility], or [facility]) in a manner consistent with CLIA requirements. One or more of these tests may not have been cleared or approved by the FDA. [facility] is regulated under CLIA as qualified to perform high-complexity testing. These tests are used for clinical purposes. These should not be regarded as investigational or for research. Positive and negative controls stain appropriately. Performed By: #### C YTONON ####[facility] LABCLIA [id number] [place] [address] [place] CASE REPORT Normal [facility] Comment on above: Order Comment: Speci men Type: FLUID SPECIMENOrdering Facility: [facility] Address: [address] [place] [address] Result Comment: [facility] Cytology Report Case: [id number] Provider: Young Cruz MD Collected: 11/16/2024 08:42 AMOrdering Location: [place] [address] Received: 11/16/2024 06:20 PMPathologist: Stefani Mcneal MDSpecimen: Peritoneal Fluid. Performed By: #### C YTONON ####[facility] LABCLIA [id number] [place] [address] [place] CLINICAL HISTORY Cirrhosis with ascites Normal [facility] Comment on above: Order Comment: Speci men Type: FLUID SPECIMENOrdering Facility: [facility] Address: [address] [place] [address] Performed By: #### C YTONON ####[facility] LABCLIA [id number] [address] [place] FINAL DIAGNOSIS Normal [facility] Comment on above: Order Comment: Speci men Type: FLUID SPECIMENOrdering Facility: [facility] Address: [address] [place] [address] Result Comment: A - Peritoneal Fluid Negative for malignant cells. Chronic inflammation.The following cell blocks were associated with this case:A1 Cell Block, Alcohol Fixed at 1223 EDT Performed By: #### C YTONON ####[facility] LABCLIA [id number] [place] [address] [place] FINAL PERFORMING LAB Normal [facility] Comment on above: Order Comment: Speci men Type: FLUID SPECIMENOrdering Facility: [facility] Address: [address] [place] [address] Result Comment: Tech nical component, dental scheduling coordinator screening performed at: [facility], [address] [place] [address] CLIA: [id number] interpretation performed at: [facility], [address] [place] [address] CLIA# [id number] Director: Titi Voss MD Performed By: #### C YTONON ####[facility] LABCLIA [id number] [place] [address] [place] GROSS DESCRIPTION Normal [facility] Comment on above: Order Comment: Speci men Type: FLUID SPECIMENOrdering Facility: [facility] Address: [address] [place] [address] Result Comment: A. P eritoneal Fluid.1450 cc opaque red fluid . ThinPrep and Cell Block prepared. Performed By: #### C YTONON ####[facility] LABCLIA [id number] [place] [address] [place] ECG COMPLETEon 11-16-2024 ECG COMPLETE Normal [facility] Fibrinogen PPP-mCncon 2024 Fibrinogen Coag (PPP) [Mass/Vol] 127 mg/dL Low 200-400 [facility] Comment on above: Order Comment: Speci men Type: BLOOD SPECIMENOrdering Facility: [facility] Address: [address] [place] [address] Performed By: #### 3 255-7, 44494-0 ####[facility] LABIA [id number] [place] [address] [place] Hepatic function 2000 panelo n 11-16-2024 Albumin [Mass/Vol] 2.8 g/dL Low 3.9-4.9 [facility] Comment on above: Order Comment: Speci men Type: BLOOD SPECIMENOrdering Facility: [facility] Address: [address] [place] [address] Performed By: #### 2 4321-2, 37349-5, 2777-1 ####[facility] LABIA [id number] [place] [address] [place] ALP [Catalytic activity/Vol] 295 U/L High 38-113 [facility] Comment on above: Order Comment: Speci men Type: BLOOD SPECIMENOrdering Facility: [facility] Address: [address] [place] [address] Performed By: #### 2 4321-2, 34060-8, 2777-1 ####[facility] LABIA [id number] [address] [place] ALT [Catalytic activity/Vol] 38 U/L Normal 10-54 [facility] Comment on above: Order Comment: Speci men Type: BLOOD SPECIMENOrdering Facility: [facility] Address: [address] [place] [address] Performed By: #### 2 4321-2, 13746-4, 2777-1 ####[facility] LABIA [id number] [place] [address] [place] AST [Catalytic activity/Vol] 88 U/L High 14-40 [facility] Comment on above: Order Comment: Speci men Type: BLOOD SPECIMENOrdering Facility: [facility] Address: [address] [place] [address] Performed By: #### 2 4321-2, 39764-2, 2776-08 ####[facility] LABCLIA [id number] [address] [address] [place] Bilirubin [Mass/Vol] 1.8 mg/dL High 0.2-1.3 [facility] Comment on above: Order Comment: Speci men Type: BLOOD SPECIMENOrdering Facility: [facility] Address: [address] [place] [address] Performed By: #### 2 4321-2, 40762-5, 2776-08 ####[facility] LABCLIA [id number] [place] [address] [place] Bilirubin.conjugated [Mass/Vol] 0.9 mg/dL High <0.3 [facility] Comment on above: Order Comment: Speci men Type: BLOOD SPECIMENOrdering Facility: [facility] Address: [address] [place] [address] Performed By: #### 2 432-2, 37616-7, 2776-08 ####[facility] LABCLIA [id number] [place] [address] [place] Protein [Mass/Vol] 5.5 g/dL Low 6.3-8.0 [facility] Comment on above: Order Comment: Speci men Type: BLOOD SPECIMENOrdering Facility: [facility] Address: [address] [place] [address] Performed By: #### 2 4321-2, 15273-0, 2776-08 ####[facility] LABCLIA [id number] [address] [address] [place] MANUAL DIFFERENTIAL, BODY FL UIDon 11-16-2024 DIF TTL, BODY FLUID 100 cells counted Normal [facility] Comment on above: Order Comment: Speci men Type: FLUID SPECIMENOrdering Facility: [facility] Address: [address] [place] [address] Performed By: #### C CBF, [id number] ####[facility] LABCLIA [id number] [facility] [address] [place] [address] [place] LYMPH%, BF 47 % High 18-36 [facility] Comment on above: Order Comment: Speci men Type: FLUID SPECIMENOrdering Facility: [facility] Address: [address] [place] [address] Performed By: #### C CBF, [id number] ####[facility] LABCLIA [id number] [address] [place] [address] [place] MACRO%, BF 6 % Low 64-80 [facility] Comment on above: Order Comment: Speci men Type: FLUID SPECIMENOrdering Facility: [facility] Address: [address] [place] [address] Performed By: #### C CBF, [id number] ####[facility] LABCLIA [id number] [address], [facility]95 [place] MESO %, BF 25 % High 0-2 [facility] Comment on above: Order Comment: Speci men Type: FLUID SPECIMENOrdering Facility: [facility] Address: [address] [place] [address] Performed By: #### C CBF, [id number] ####[facility] LABCLIA [id number] [address] [place] [address] [place] MONO% BF 8 % Normal [facility] Comment on above: Order Comment: Speci men Type: FLUID SPECIMENOrdering Facility: [facility] Address: [address] [place] [address] Performed By: #### C CBF, [id number] ####[facility] LABCLIA [id number] [address], [facility] [place] NEUT%, BF 14 % High 0-1 [facility] Comment on above: Order Comment: Speci men Type: FLUID SPECIMENOrdering Facility: [facility] Address: [address] [place] [address] Performed By: #### C CBF, [id number] ####[facility] LABCLIA [id number] [place] [id number] [place] NURSING PROGon 11-16-2024 NURSING PROG Normal [facility] NURSING PROG Normal [facility] PT panel Coag (PPP)on 2024 INR Coag (PPP) [Relative time] 2.1 {INR} High 0.9-1.3 [facility] Comment on above: Order Comment: Speci men Type: BLOOD SPECIMENOrdering Facility: [facility] Address: [address] [place] [address] Result Comment: Sarah min K Antagonist (VKA) Therapeutic Range: INR 2 to 3 (Target INR of 2.5)Note: For patients treated with VKA drugs, such as warfarin, the [place] [employer] 2012 Guideline recommends [...] al. Chest 2012, 141:7S-47SNishimura RA, et al. [facility] 2017, 70: 252-289 Performed By: #### 3 4528-0 ####[facility] LABCLIA [id number] [address] [address] [place] PT Coag (PPP) [Time] 21.5 s High 9.7-13.0 [facility] Comment on above: Order Comment: Ezekiel ramirez Type: BLOOD SPECIMENOrdering Facility: [facility] Address: [address] [place] [address] Performed By: #### 3 4528-0 ####[facility] LABCLIA [id number] [place] [address] [place] INR Coag (PPP) [Relative time] 2.0 {INR} High 0.9-1.3 [facility] Comment on above: Order Comment: Ezekiel ramirez Type: BLOOD SPECIMENOrdering Facility: [facility] Address: [facility] [place] [address] Result Comment: Sarah min K Antagonist (VKA) Therapeutic Range: INR 2 to 3 (Target INR of 2.5)Note: For patients treated with VKA drugs, such as warfarin, the [place] [employer] 2012 Guideline recommends [...] al. Chest 2012, 141:7S-47SNishimura RA, et al. [facility] 2017, 70: 252-289 Performed By: #### 3 255-7, 59794-2 ####[facility] [id number] [place] [address] [place] PT Coag (PPP) [Time] 20.3 s High 9.7-13.0 [facility] Comment on above: Order Comment: Ezekiel ramirez Type: BLOOD SPECIMENOrdering Facility: [facility] Address: [address] [place] [address] Performed By: #### 3 255-7, 82297-3 ####[facility] [id number] [place] [address] [place] Phosphate SerPl-mCncon 11-16 Phosphate [Mass/Vol] 2.3 mg/dL Low 2.7-4.8 [facility] Comment on above: Order Comment: Speci men Type: BLOOD SPECIMENOrdering Facility: [facility] Address: [address] [place] [address] Performed By: #### 2 4321-2, 15923-9, 2777-1 ####[facility] LABCLIA [id number] [place] [address] [place] Prot Fld-mCncon 11-16-2024 Protein (Body fld) [Mass/Vol] 0.5 g/dL Normal See Comment [facility] Comment on above: Order Comment: Speci men Type: FLUID SPECIMENOrdering Facility: [facility] Address: [address] [place] [address] Result Comment: Sero us fluids: Effusions are [...] document C49A. PAULETTE Diaz: Clinical Laboratory Standards Hooper: 2007. Performed By: #### 1 795-4, 2881-1, 1747-5 ####[facility] LABIA [id number] [place] [id number] [place] THERAPY NTon 11-16-2024 THERAPY NT Normal [facility] THERAPY NT Normal [facility] BLOOD TB SCREENon 11-15-2024 M. tuberculosis tuberculin stim IFN-g Ql (Bld) Indeterminate Normal [facility] Comment on above: Order Comment: Speci men Type: BLOOD SPECIMENOrdering Facility: [facility] Address: [address] [place] [address] Performed By: #### I NFTBP ####[facility] LABCLIA [id number] [place] [address] [place] MITOGEN MINUS NIL 0.25 IU/mL Low >=0.50 [facility] Comment on above: Order Comment: Speci men Type: BLOOD SPECIMENOrdering Facility: [facility] Address: [address] [place] [address] Performed By: #### I NFTBP ####[facility] LABCLIA [id number] [place] [address] [place] TB GAMMA INTERPRETATION Normal C [facility] Comment on above: Order Comment: Speci men Type: BLOOD SPECIMENOrdering Facility: [facility] Address: [address] [place] [address] Performed By: #### I NFTBP ####[facility] LABCLIA [id number] [address] [place] TB NIL 0.01 IU/mL Normal <=8.00 [facility] Comment on above: Order Comment: Speci men Type: BLOOD SPECIMENOrdering Facility: [facility] Address: [address] [place] [address] Performed By: #### I NFTBP ####[facility] LABCLIA [id number] [place] [address] [place] TB1 AG MINUS NIL 0.00 IU/mL Normal <0.35 [facility] Comment on above: Order Comment: Speci men Type: BLOOD SPECIMENOrdering Facility: [facility] Address: [address] [place] [address] Performed By: #### I NFTBP ####[facility] LABCLIA [id number] [place] [address] [place] TB2 AG MINUS NIL 0.01 IU/mL Normal <0.35 [facility] Comment on above: Order Comment: Speci men Type: BLOOD SPECIMENOrdering Facility: [facility] Address: [address] [place] [address] Performed By: #### I NFTBP ####[facility] LABCLIA [id number] [place] [address] [place] CASE MANAGEMon 11-15-2024 CASE MANAGEM Normal [facility] CASE MANAGEM Normal [facility] CBC W Auto Differential pane l (Bld)on 11-15-2024 Basophils (Bld) [#/Vol] 0.05 10*3/uL Normal <0.11 [facility] Comment on above: Order Comment: Speci men Type: BLOOD SPECIMENOrdering Facility: [facility] Address: [address] [place] [address] Performed By: #### 5 7021-8 ####[facility] LABCLIA [id number] [place] [address] [place] Basophils/100 WBC (Bld) 0.8 % Normal [facility] Comment on above: Order Comment: Speci men Type: BLOOD SPECIMENOrdering Facility: [facility] Address: [address] [place] [address] Performed By: #### 5 7021-8 ####[facility] LABCLIA [id number] [place] [address] [place] Differential cell count method Nom (Bld) Auto Normal [facility] Comment on above: Order Comment: Speci men Type: BLOOD SPECIMENOrdering Facility: [facility] Address: [address] [place] [address] Performed By: #### 5 7021-8 ####[facility] LABCLIA [id number] [place] [address] [place] Eosinophils (Bld) [#/Vol] 0.28 10*3/uL Normal <0.46 [facility] Comment on above: Order Comment: Speci men Type: BLOOD SPECIMENOrdering Facility: [facility] Address: [address] [place] [address] Performed By: #### 5 7021-8 ####[facility] LABCLIA [id number] [address], [place] [address] [place] Eosinophils/100 WBC (Bld) 4.6 % Normal [facility] Comment on above: Order Comment: Speci men Type: BLOOD SPECIMENOrdering Facility: [facility] Address: [address] [place] [address] Performed By: #### 5 7021-8 ####[facility] LABCLIA [id number] [address], [place] [address] [place] Erythrocyte distribution width (RBC) [Ratio] 16.8 % High 11.5-15.0 [facility] Comment on above: Order Comment: Speci men Type: BLOOD SPECIMENOrdering Facility: [facility] Address: [address] [place] [address] Performed By: #### 5 7021-8 ####[facility] LABIA [id number] [address], [place] [address] [place] Hematocrit (Bld) [Volume fraction] 22.9 % Low 39.0-51.0 [facility] Comment on above: Order Comment: Speci men Type: BLOOD SPECIMENOrdering Facility: [facility] Address: [address] [place] [address] Performed By: #### 5 7021-8 ####[facility] LABCLIA [id number] [address], [facility] [place] Hemoglobin (Bld) [Mass/Vol] 7.6 g/dL Low 13.0-17.0 [facility] Comment on above: Order Comment: Speci men Type: BLOOD SPECIMENOrdering Facility: [facility] Address: [address] [place] [address] Performed By: #### 5 7021-8 ####[facility] LABCLIA [id number] [place] [id number] [place] Immature granulocytes (Bld) [#/Vol] 0.03 10*3/uL Normal <0.10 [facility] Comment on above: Order Comment: Speci men Type: BLOOD SPECIMENOrdering Facility: [facility] Address: [address] [place] [address] Performed By: #### 5 7021-8 ####[facility] LABCLIA [id number] [place] [address] [place] Immature granulocytes/100 WBC (Bld) 0.5 % Normal [facility] Comment on above: Order Comment: Speci men Type: BLOOD SPECIMENOrdering Facility: [facility] Address: [address] [place] [address] Performed By: #### 5 7021-8 ####[facility] LABCLIA [id number] [place] [address] [place] Lymphocytes (Bld) [#/Vol] 0.70 10*3/uL Low 1.00-4.00 [facility] Comment on above: Order Comment: Speci men Type: BLOOD SPECIMENOrdering Facility: [facility] Address: [address] [place] [address] Performed By: #### 5 7021-8 ####[facility] LABCLIA [id number] [place] [address] [place] Lymphocytes/100 WBC (Bld) 11.5 % Normal [facility] Comment on above: Order Comment: Speci men Type: BLOOD SPECIMENOrdering Facility: [facility] Address: [address] [place] [address] Performed By: #### 5 7021-8 ####[facility] LABCLIA [id number] [place] [address] [place] MCH (RBC) [Entitic mass] 30.6 pg Normal 26.0-34.0 [facility] Comment on above: Order Comment: Speci men Type: BLOOD SPECIMENOrdering Facility: [facility] Address: [address] [place] [address] Performed By: #### 5 7021-8 ####[facility] LABCLIA [id number] [place] [address] [place] MCHC (RBC) [Mass/Vol] 33.2 g/dL Normal 30.5-36.0 [facility] Comment on above: Order Comment: Speci men Type: BLOOD SPECIMENOrdering Facility: [facility] Address: [address] [place] [address] Performed By: #### 5 7021-8 ####[facility] LABCLIA [id number] [place] [address] [place] MCV (RBC) [Entitic vol] 92.3 fL Normal 80.0-100.0 [facility] Comment on above: Order Comment: Speci men Type: BLOOD SPECIMENOrdering Facility: [facility] Address: [address] [place] [address] Performed By: #### 5 7021-8 ####[facility] LABCLIA [id number] [place] [address] [place] Monocytes (Bld) [#/Vol] 0.73 10*3/uL Normal <0.87 [facility] Comment on above: Order Comment: Speci men Type: BLOOD SPECIMENOrdering Facility: [facility] Address: [address] [place] [address] Performed By: #### 5 7021-8 ####[facility] LABCLIA [id number] [facility] [place] [id number] [place] Monocytes/100 WBC (Bld) 12.0 % Normal C [facility] Comment on above: Order Comment: Speci men Type: BLOOD SPECIMENOrdering Facility: [facility] Address: [address] [place] [address] Performed By: #### 5 7021-8 ####[facility] LABCLIA [id number] [address] [address] [place] Neutrophils (Bld) [#/Vol] 4.30 10*3/uL Normal 1.45-7.50 [facility] Comment on above: Order Comment: Speci men Type: BLOOD SPECIMENOrdering Facility: [facility] Address: [address] [place] [address] Performed By: #### 5 7021-8 ####[facility] LABCLIA [id number] [address], [place] [address] [place] Neutrophils/100 WBC (Bld) 70.6 % Normal [facility] Comment on above: Order Comment: Speci men Type: BLOOD SPECIMENOrdering Facility: [facility] Address: [address] [place] [address] Performed By: #### 5 7021-8 ####[facility] LABCLIA [id number] [place] [address] [place] Nucleated RBC (Bld) [#/Vol] 10*3/uL Normal <0.01 [facility] Comment on above: Order Comment: Speci men Type: BLOOD SPECIMENOrdering Facility: [facility] Address: [address] [place] [address] Performed By: #### 5 7021-8 ####[facility] LABCLIA [id number] [place] [address] [place] Nucleated RBC/100 WBC (Bld) [Ratio] 0.0 /100 WBC Normal [facility] Comment on above: Order Comment: Speci men Type: BLOOD SPECIMENOrdering Facility: [facility] Address: [address] [place] [address] Performed By: #### 5 7021-8 ####[facility] LABCLIA [id number] [place] [id number] [place] Platelet mean volume (Bld) [Entitic vol] 12.2 fL Normal 9.0-12.7 [facility] Comment on above: Order Comment: Speci men Type: BLOOD SPECIMENOrdering Facility: [facility] Address: [address] [place] [address] Performed By: #### 5 7021-8 ####[facility] [id number] [place] [address] [place] Platelets (Bld) [#/Vol] 53 10*3/uL Low 150-400 [facility] Comment on above: Order Comment: Speci men Type: BLOOD SPECIMENOrdering Facility: [facility] Address: [address] [place] [address] Performed By: #### 5 7021-8 ####[facility] [id number] [place] [address] [place] RBC (Bld) [#/Vol] 2.48 10*6/uL Low 4.20-6.00 [facility] Comment on above: Order Comment: Speci men Type: BLOOD SPECIMENOrdering Facility: [facility] Address: [address] [place] [address] Performed By: #### 5 7021-8 ####[facility] [id number] [place] [address] [place] WBC (Bld) [#/Vol] 6.09 10*3/uL Normal 3.70-11.00 [facility] Comment on above: Order Comment: Speci men Type: BLOOD SPECIMENOrdering Facility: [facility] Address: [address] [place] [address] Performed By: #### 5 7021-8 ####[facility] [id number] [place] [address] [place] CNOVon 11-15-2024 CNOV Normal [facility] CONSULTon 11-15-2024 CONSULT Normal [facility] CONSULT PROGon 11-15-2024 CONSULT PROG Normal [facility] Fibrinogen PPP-mCncon 2024 Fibrinogen Coag (PPP) [Mass/Vol] 123 mg/dL Low 200-400 [facility] Comment on above: Order Comment: Speci men Type: BLOOD SPECIMENOrdering Facility: [facility] Address: [address] [place] [address] Performed By: #### 3 255-7, 98306-5 ####[facility] LABCLIA [id number] [place] [address] [place] Hepatic function 2000 panelo n 11-15-2024 Albumin [Mass/Vol] 2.8 g/dL Low 3.9-4.9 [facility] Comment on above: Order Comment: Speci men Type: BLOOD SPECIMENOrdering Facility: [facility] Address: [address] [place] [address] Performed By: #### 2 4325-3, 38179-9 ####[facility] LABCLIA [id number] [place] [address] [place] ALP [Catalytic activity/Vol] 277 U/L High 38-113 [facility] Comment on above: Order Comment: Speci men Type: BLOOD SPECIMENOrdering Facility: [facility] Address: [address] [place] [address] Performed By: #### 2 4325-3, 19967-9 ####[facility] LABCLIA [id number] [facility] [place] [address] [place] ALT [Catalytic activity/Vol] 36 U/L Normal 10-54 [facility] Comment on above: Order Comment: Speci men Type: BLOOD SPECIMENOrdering Facility: [facility] Address: [address] [place] [address] Performed By: #### 2 4325-3, 66062-6 ####[facility] LABCLIA [id number] [facility] [address] [address] [place] AST [Catalytic activity/Vol] 87 U/L High 14-40 [facility] Comment on above: Order Comment: Speci men Type: BLOOD SPECIMENOrdering Facility: [facility] Address: [address] [place] [address] Performed By: #### 2 4325-3, 81022-5 ####[facility] LABIA [id number] [place] [address] [place] Bilirubin [Mass/Vol] 1.6 mg/dL High 0.2-1.3 [facility] Comment on above: Order Comment: Speci men Type: BLOOD SPECIMENOrdering Facility: [facility] Address: [address] [place] [address] Performed By: #### 2 4325-3, 88656-2 ####[facility] LABIA [id number] [place] [address] [place] Bilirubin.conjugated [Mass/Vol] 0.9 mg/dL High <0.3 [facility] Comment on above: Order Comment: Speci men Type: BLOOD SPECIMENOrdering Facility: [facility] Address: [address] [place] [address] Performed By: #### 2 4325-3, 97365-7 ####[facility] [id number] [place] [address] [place] Protein [Mass/Vol] 5.4 g/dL Low 6.3-8.0 [facility] Comment on above: Order Comment: Speci men Type: BLOOD SPECIMENOrdering Facility: [facility] Address: [address] [place] [address] Performed By: #### 2 4325-3, 88303-0 ####[facility] LABIA [id number] [place] [id number] [place] PT panel Coag (PPP)on 2024 INR Coag (PPP) [Relative time] 1.8 {INR} High 0.9-1.3 [facility] Comment on above: Order Comment: Speci men Type: BLOOD SPECIMENOrdering Facility: [facility] Address: [address] [place] [address] Result Comment: Sarah min K Antagonist (VKA) Therapeutic Range: INR 2 to 3 (Target INR of 2.5)Note: For patients treated with VKA drugs, such as warfarin, the [place] [employer] 2012 Guideline recommends [...] al. Chest 2012, 141:7S-47SHector RA, et al. [facility] 2017, 70: 252-289 Performed By: #### 3 255-7, 39818-2 ####[facility] LABIA [id number] [place] [address] [place] PT Coag (PPP) [Time] 18.9 s High 9.7-13.0 [facility] Comment on above: Order Comment: Speci men Type: BLOOD SPECIMENOrdering Facility: [facility] Address: [address] [place] [address] Performed By: #### 3 255-7, 19984-2 ####[facility] LABIA [id number] [place] [address] [place] Renal function 2000 panelon 11-15-2024 Albumin [Mass/Vol] 2.9 g/dL Low 3.9-4.9 [facility] Comment on above: Order Comment: Speci men Type: BLOOD SPECIMENOrdering Facility: [facility] Address: [address] [place] [address] Performed By: #### 2 4325-3, 05974-8 ####[facility] LABIA [id number] [place] [id number] [place] Anion gap [Moles/Vol] 15 mmol/L Normal 8-15 [facility] Comment on above: Order Comment: Speci men Type: BLOOD SPECIMENOrdering Facility: [facility] Address: [address] [place] [address] Performed By: #### 2 4325-3, 42436-5 ####[facility] LABCLIA [id number] [place] [address] [place] Calcium [Mass/Vol] 8.4 mg/dL Low 8.5-10.2 [facility] Comment on above: Order Comment: Speci men Type: BLOOD SPECIMENOrdering Facility: [facility] Address: [address] [place] [address] Performed By: #### 2 4325-3, 64752-4 ####[facility] LABCLIA [id number] [place] [address] [place] Chloride [Moles/Vol] 99 mmol/L Normal 98-107 [facility] Comment on above: Order Comment: Speci men Type: BLOOD SPECIMENOrdering Facility: [facility] Address: [address] [place] [address] Performed By: #### 2 4325-3, 75148-4 ####[facility] LABCLIA [id number] [place] [id number] [place] CO2 [Moles/Vol] 14 mmol/L Low 22-30 [facility] Comment on above: Order Comment: Speci men Type: BLOOD SPECIMENOrdering Facility: [facility] Address: [address] [place] [address] Performed By: #### 2 4325-3, 48802-3 ####[facility] LABCLIA [id number] [place] [id number] [place] Creatinine [Mass/Vol] 0.80 mg/dL Normal 0.73-1.22 [facility] Comment on above: Order Comment: Ezekiel ramirez Type: BLOOD SPECIMENOrdering Facility: [facility] Address: [address] [place] [address] Performed By: #### 2 4325-3, 88509-9 ####[facility] LABCLIA [id number] [place] [address] [place] Creatinine and Glomerular filtration rate.predicted panel (S/P/Bld) 103 mL/min/1.73m??? Normal >=60 [facility] Comment on above: Order Comment: Ezekiel ramirez Type: BLOOD SPECIMENOrdering Facility: [facility] Address: [address] [place] [address] Result Comment: Patric mated Glomerular Filtration Rate [...] actual GFR. Performed By: #### 2 4325-3, 66849-1 ####[facility] LABIA [id number] [place] [id number] [place] Glucose [Mass/Vol] 272 mg/dL High 74-99 [facility] Comment on above: Order Comment: Ezekiel ramirez Type: BLOOD SPECIMENOrdering Facility: [facility] Address: [address] [place] [address] Result Comment: The [place] [employer] (ADA) provides guidance for cutoff [...] Standards of Medical Care in Diabetes 2016, [place] [employer]. Diabetes Care. 2016.39(Suppl 1). Performed By: #### 2 4325-3, 82226-8 ####[facility] LABCLIA [id number] [place] [address] [place] Phosphate [Mass/Vol] 2.2 mg/dL Low 2.7-4.8 [facility] Comment on above: Order Comment: Speci men Type: BLOOD SPECIMENOrdering Facility: [facility] Address: [address] [place] [address] Performed By: #### 2 4325-3, 43192-2 ####[facility] LABIA [id number] [place] [address] [place] Potassium [Moles/Vol] 3.8 mmol/L Normal 3.7-5.1 [facility] Comment on above: Order Comment: Speci men Type: BLOOD SPECIMENOrdering Facility: [facility] Address: [address] [place] [address] Performed By: #### 2 4325-3, 53226-6 ####[facility] LABIA [id number] [place] [address] [place] Sodium [Moles/Vol] 128 mmol/L Low 136-144 [facility] Comment on above: Order Comment: Speci men Type: BLOOD SPECIMENOrdering Facility: [facility] Address: [address] [place] [id number] Performed By: #### 2 4325-3, 92293-9 ####[facility] LABIA [id number] [place] [address] [place] Urea nitrogen [Mass/Vol] 11 mg/dL Normal 9-24 [facility] Comment on above: Order Comment: Speci men Type: BLOOD SPECIMENOrdering Facility: [facility] Address: [address] [place] [id number] Performed By: #### 2 4325-3, 70026-6 ####[facility] LABCLIA [id number] [place] [id number] [place] SEPSIS LACTATEon 11-15-2024 Lactate [Moles/Vol] 3.2 mmol/L High <=2.0 [facility] Comment on above: Order Comment: Speci men Type: BLOOD SPECIMENOrdering Facility: [facility] Address: [address] [place] [address] Performed By: #### S LACT ####[facility] LABCLIA [id number] [place] [address] [place] SOCIAL WORKon 11-15-2024 SOCIAL WORK Normal [facility] THERAPY NTon 11-15-2024 THERAPY NT Normal [facility] THERAPY NT Normal [facility] TYPE + SCREENon 11-15-2024 ABO O Normal [facility] Comment on above: Order Comment: Speci men Type: BLOOD SPECIMENOrdering Facility: [facility] Address: [address] [place] [address] Performed By: #### T SCR ####[facility]LO[facility] BANKCLIA [id number] [place] [address] [place] Rh Nom (Bld) Positive Normal [facility] Comment on above: Order Comment: Speci men Type: BLOOD SPECIMENOrdering Facility: [facility] Address: [address] [place] [address] Performed By: #### T SCR ####[facility] BLOOD BANKCLIA [id number] [place] [address] [place] TYPE AND SCREEN EXPIRATION 11/18/2024 23:59 Normal [facility] Comment on above: Order Comment: Speci men Type: BLOOD SPECIMENOrdering Facility: [facility] Address: [address] [place] [address] Performed By: #### T SCR ####[facility] BLOOD BANKCLIA [id number] [place] [address] [place] US ASCITES SURVEYon 11-16-19 US ASCITES SURVEY Normal [facility] Basic metabolic 2000 panelon 11-14-2024 Anion gap [Moles/Vol] 11 mmol/L Normal 8-15 [facility] Comment on above: Order Comment: Speci men Type: BLOOD SPECIMENOrdering Facility: [facility] Address: [address] [place] [address] Performed By: #### 2 4321-2, 98677-5, 277-, ####[facility] LABCLIA [id number] [address] [address] [place] Calcium [Mass/Vol] 8.9 mg/dL Normal 8.5-10.2 [facility] Comment on above: Order Comment: Speci men Type: BLOOD SPECIMENOrdering Facility: [facility] Address: [address] [place] [address] Performed By: #### 2 4321-2, 12484-2, 27702-01, ####[facility] LABCLIA [id number] [address] [address] [place] Chloride [Moles/Vol] 99 mmol/L Normal 98-107 [facility] Comment on above: Order Comment: Speci men Type: BLOOD SPECIMENOrdering Facility: [facility] Address: [address] [place], [place] [address] Performed By: #### 2 4321-2, 85477-9, 27702-01, ####[facility] LABCLIA [id number] [address] [address] [place] CO2 [Moles/Vol] 17 mmol/L Low 22-30 [facility] Comment on above: Order Comment: Speci men Type: BLOOD SPECIMENOrdering Facility: [facility] Address: [address] [place], [place] [address] Performed By: #### 2 4321-2, 30014-4, 277-1, 21233-3 ####[facility] LABCLIA [id number] [address] [address] [place] Creatinine [Mass/Vol] 0.89 mg/dL Normal 0.73-1.22 [facility] Comment on above: Order Comment: Ezekiel ramirez Type: BLOOD SPECIMENOrdering Facility: [facility] Address: [address] [place] [address] Performed By: #### 2 4321-2, 23127-3, 2776-, ####[facility] LABIA [id number] [address] [address] [place] Creatinine and Glomerular filtration rate.predicted panel (S/P/Bld) 99 mL/min/1.73m??? Normal >=60 [facility] Comment on above: Order Comment: Ezekiel ramirez Type: BLOOD SPECIMENOrdering Facility: [facility] Address: [address] [place] [address] Result Comment: Patric mated Glomerular Filtration Rate [...] actual GFR. Performed By: #### 2 4321-2, 86896-2, 2776-, ####[facility] LABIA [id number] [address] [address] [place] Glucose [Mass/Vol] 250 mg/dL High 74-99 [facility] Comment on above: Order Comment: Ezekiel ramirez Type: BLOOD SPECIMENOrdering Facility: [facility] Address: [address] [place] [id number] Result Comment: The [place] [employer] (ADA) provides guidance for cutoff [...] Standards of Medical Care in Diabetes 2016, [place] [employer]. Diabetes Care. 2016.39(Suppl 1). Performed By: #### 2 4321-2, 07174-8, 2776-08, ####[facility] LABCLIA [id number] [address] [address] [place] Potassium [Moles/Vol] 3.6 mmol/L Low 3.7-5.1 [facility] Comment on above: Order Comment: Speci men Type: BLOOD SPECIMENOrdering Facility: [facility] Address: [address] [place] [address] Performed By: #### 2 4321-2, 13618-4, 2776-08, ####[facility] LABIA [id number] [place] [address] [place] Sodium [Moles/Vol] 127 mmol/L Low 136-144 [facility] Comment on above: Order Comment: Speci men Type: BLOOD SPECIMENOrdering Facility: [facility] Address: [address] [place] [address] Performed By: #### 2 4321-2, 57490-3, 2776-08, ####[facility] LABCLIA [id number] [address] [address] [place] Urea nitrogen [Mass/Vol] 14 mg/dL Normal 9-24 [facility] Comment on above: Order Comment: Speci men Type: BLOOD SPECIMENOrdering Facility: [facility] Address: [address] [place] [address] Performed By: #### 2 4321-2, 59869-9, 2776-08, ####[facility] LABCLIA [id number] [address], [place] [address] [place] CBC W Auto Differential pane l (Bld)on 11-14-2024 Basophils (Bld) [#/Vol] 0.04 10*3/uL Normal <0.11 [facility] Comment on above: Order Comment: Speci men Type: BLOOD SPECIMENOrdering Facility: [facility] Address: [address] [place] [address] Performed By: #### 5 7021-8 ####[facility] LABCLIA [id number] [facility] [address], [place] [address] [place] Basophils/100 WBC (Bld) 0.7 % Normal [facility] Comment on above: Order Comment: Speci men Type: BLOOD SPECIMENOrdering Facility: [facility] Address: [address] [place] [address] Performed By: #### 5 7021-8 ####[facility] LABCLIA [id number] [place] [address] [place] Differential cell count method Nom (Bld) Auto Normal [facility] Comment on above: Order Comment: Speci men Type: BLOOD SPECIMENOrdering Facility: [facility] Address: [address] [place] [address] Performed By: #### 5 7021-8 ####[facility] LABCLIA [id number] [place] [address] [place] Eosinophils (Bld) [#/Vol] 0.23 10*3/uL Normal <0.46 [facility] Comment on above: Order Comment: Speci men Type: BLOOD SPECIMENOrdering Facility: [facility] Address: [address] [place] [address] Performed By: #### 5 7021-8 ####[facility] LABCLIA [id number] [place] [address] [place] Eosinophils/100 WBC (Bld) 4.1 % Normal [facility] Comment on above: Order Comment: Speci men Type: BLOOD SPECIMENOrdering Facility: [facility] Address: [address] [place] [address] Performed By: #### 5 7021-8 ####[facility] LABIA [id number] [address] [address] [place] Erythrocyte distribution width (RBC) [Ratio] 16.3 % High 11.5-15.0 [facility] Comment on above: Order Comment: Speci men Type: BLOOD SPECIMENOrdering Facility: [facility] Address: [address] [place] [address] Performed By: #### 5 7021-8 ####[facility] LABIA [id number] [place] [address] [place] Hematocrit (Bld) [Volume fraction] 22.7 % Low 39.0-51.0 [facility] Comment on above: Order Comment: Speci men Type: BLOOD SPECIMENOrdering Facility: [facility] Address: [address] [place] [address] Performed By: #### 5 7021-8 ####[facility] LABIA [id number] [place] [address] [place] Hemoglobin (Bld) [Mass/Vol] 7.9 g/dL Low 13.0-17.0 [facility] Comment on above: Order Comment: Speci men Type: BLOOD SPECIMENOrdering Facility: [facility] Address: [address] [place] [address] Performed By: #### 5 7021-8 ####[facility] LABIA [id number] [place] [address] [place] Immature granulocytes (Bld) [#/Vol] 0.04 10*3/uL Normal <0.10 [facility] Comment on above: Order Comment: Speci men Type: BLOOD SPECIMENOrdering Facility: [facility] Address: [address] [place] [address] Performed By: #### 5 7021-8 ####[facility] LABCLIA [id number] [place] [address] [place] Immature granulocytes/100 WBC (Bld) 0.7 % Normal [facility] [facility] Comment on above: Order Comment: Speci men Type: BLOOD SPECIMENOrdering Facility: [facility] Address: [address] [place] [address] Performed By: #### 5 7021-8 ####[facility] LABCLIA [id number] [place] [address] [place] Lymphocytes (Bld) [#/Vol] 0.72 10*3/uL Low 1.00-4.00 [facility] Comment on above: Order Comment: Speci men Type: BLOOD SPECIMENOrdering Facility: [facility] Address: [address] [place] [address] Performed By: #### 5 7021-8 ####[facility] LABIA [id number] [place] [address] [place] Lymphocytes/100 WBC (Bld) 12.8 % Normal [facility] Comment on above: Order Comment: Speci men Type: BLOOD SPECIMENOrdering Facility: [facility] Address: [address] [place] [address] Performed By: #### 5 7021-8 ####[facility] LABIA [id number] [place] [address] [place] MCH (RBC) [Entitic mass] 31.7 pg Normal 26.0-34.0 [facility] Comment on above: Order Comment: Speci men Type: BLOOD SPECIMENOrdering Facility: [facility] Address: [address] [place] [address] Performed By: #### 5 7021-8 ####[facility] LABIA [id number] [place] [address] [place] MCHC (RBC) [Mass/Vol] 34.8 g/dL Normal 30.5-36.0 [facility] Comment on above: Order Comment: Speci men Type: BLOOD SPECIMENOrdering Facility: [facility] Address: [address] [place] [address] Performed By: #### 5 7021-8 ####[facility] LABCLIA [id number] [place] [address] [place] MCV (RBC) [Entitic vol] 91.2 fL Normal 80.0-100.0 [facility] Comment on above: Order Comment: Speci men Type: BLOOD SPECIMENOrdering Facility: [facility] Address: [address] [place] [address] Performed By: #### 5 7021-8 ####[facility] LABIA [id number] [place] [address] [place] Monocytes (Bld) [#/Vol] 0.68 10*3/uL Normal <0.87 [facility] Comment on above: Order Comment: Speci men Type: BLOOD SPECIMENOrdering Facility: [facility] Address: [address] [place] [address] Performed By: #### 5 7021-8 ####[facility] LABIA [id number] [place] [address] [place] Monocytes/100 WBC (Bld) 12.1 % Normal [facility] Comment on above: Order Comment: Speci men Type: BLOOD SPECIMENOrdering Facility: [facility] Address: [address] [place] [address] Performed By: #### 5 7021-8 ####[facility] LABIA [id number] [place] [address] [place] Neutrophils (Bld) [#/Vol] 3.92 10*3/uL Normal 1.45-7.50 [facility] Comment on above: Order Comment: Speci men Type: BLOOD SPECIMENOrdering Facility: [facility] Address: [address] [place] [address] Performed By: #### 5 7021-8 ####[facility] LABCLIA [id number] [address], [facility] [place] Neutrophils/100 WBC (Bld) 69.6 % Normal [facility] Comment on above: Order Comment: Speci men Type: BLOOD SPECIMENOrdering Facility: [facility] Address: [address] [place] [address] Performed By: #### 5 7021-8 ####[facility] LABIA [id number] [address], [place] [address] [place] Nucleated RBC (Bld) [#/Vol] 10*3/uL Normal <0.01 [facility] Comment on above: Order Comment: Speci men Type: BLOOD SPECIMENOrdering Facility: [facility] Address: [address] [place] [address] Performed By: #### 5 7021-8 ####[facility] LABIA [id number] [address], [place] [address] [place] Nucleated RBC/100 WBC (Bld) [Ratio] 0.0 /100 WBC Normal [facility] Comment on above: Order Comment: Speci men Type: BLOOD SPECIMENOrdering Facility: [facility] Address: [address] [place] [address] Performed By: #### 5 7021-8 ####[facility] LABIA [id number] [place] [id number] [place] Platelet mean volume (Bld) [Entitic vol] 12.1 fL Normal 9.0-12.7 [facility] Comment on above: Order Comment: Speci men Type: BLOOD SPECIMENOrdering Facility: [facility] Address: [address] [place] [address] Performed By: #### 5 7021-8 ####[facility] LABIA [id number] [place] [address] [place] Platelets (Bld) [#/Vol] 43 10*3/uL Low 150-400 C [facility] Comment on above: Order Comment: Speci men Type: BLOOD SPECIMENOrdering Facility: [facility] Address: [address] [place] [address] Result Comment: Resu lts checked and verified.No clot detected. Performed By: #### 5 7021-8 ####[facility] LABCLIA [id number] [place] [address] [place] RBC (Bld) [#/Vol] 2.49 10*6/uL Low 4.20-6.00 [facility] Comment on above: Order Comment: Speci men Type: BLOOD SPECIMENOrdering Facility: [facility] Address: [address] [place] [address] Performed By: #### 5 7021-8 ####[facility] LABIA [id number] [place] [address] [place] WBC (Bld) [#/Vol] 5.63 10*3/uL Normal 3.70-11.00 [facility] Comment on above: Order Comment: Speci men Type: BLOOD SPECIMENOrdering Facility: [facility] Address: [address] [place] [address] Performed By: #### 5 7021-8 ####[facility] LABIA [id number] [place] [address] [place] Fibrinogen PPP-mCncon 2024 Fibrinogen Coag (PPP) [Mass/Vol] 119 mg/dL Low 200-400 [facility] Comment on above: Order Comment: Speci men Type: BLOOD SPECIMENOrdering Facility: [facility] Address: [address] [place] [address] Performed By: #### 3 255-7, 43348-9 ####[facility] LABIA [id number] [place] [address] [place] Hepatic function 2000 panelo n 11-14-2024 Albumin [Mass/Vol] 2.8 g/dL Low 3.9-4.9 [facility] Comment on above: Order Comment: Speci men Type: BLOOD SPECIMENOrdering Facility: [facility] Address: [address] [place], [place] [address] Performed By: #### 2 4321-2, 47949-3, 2777-1, 52124-4 ####[facility] LABCLIA [id number] [facility] [address] [place] [address] [place] ALP [Catalytic activity/Vol] 248 U/L High 38-113 [facility] Comment on above: Order Comment: Speci men Type: BLOOD SPECIMENOrdering Facility: [facility] Address: [address] [place] [address] Performed By: #### 2 4321-2, 82575-7, 2776-1, ####[facility] LABCLIA [id number] [address] [place] [address] [place] ALT [Catalytic activity/Vol] 29 U/L Normal 10-54 [facility] Comment on above: Order Comment: Speci men Type: BLOOD SPECIMENOrdering Facility: [facility] Address: [address] [place] [address] Performed By: #### 2 4321-2, 54886-2, 277-1, 64852-9 ####[facility] LABCLIA [id number] [facility] [address] [place] [address] [place] AST [Catalytic activity/Vol] 62 U/L High 14-40 [facility] Comment on above: Order Comment: Speci men Type: BLOOD SPECIMENOrdering Facility: [facility] Address: [address] [place], [place] [address] Performed By: #### 2 4321-2, 57468-1, 277-1, 20166-5 ####[facility] LABCLIA [id number] [place] [id number] [place] Bilirubin [Mass/Vol] 1.7 mg/dL High 0.2-1.3 [facility] Comment on above: Order Comment: Speci men Type: BLOOD SPECIMENOrdering Facility: [facility] Address: [address] [place] [address] Performed By: #### 2 4321-2, 61726-4, 2777-1, ####[facility] LABIA [id number] [place] [address] [place] Bilirubin.conjugated [Mass/Vol] 1.0 mg/dL High <0.3 [facility] Comment on above: Order Comment: Speci men Type: BLOOD SPECIMENOrdering Facility: [facility] Address: [address] [place] [address] Performed By: #### 2 4321-2, 21342-2, 27702-01, ####[facility] [id number] [place] [address] [place] Protein [Mass/Vol] 5.4 g/dL Low 6.3-8.0 [facility] Comment on above: Order Comment: Speci men Type: BLOOD SPECIMENOrdering Facility: [facility] Address: [address] [place] [address] Performed By: #### 2 4321-2, 38424-9, 27702-01, ####[facility] LABIA [id number] [place] [address] [place] Magnesium SerPl-mCncon 11-14 Magnesium [Mass/Vol] 1.6 mg/dL Low 1.7-2.3 [facility] Comment on above: Order Comment: Speci men Type: BLOOD SPECIMENOrdering Facility: [facility] Address: [address] [place] [address] Performed By: #### 2 4321-2, 11553-4, 27702-01, ####[facility] LABCLIA [id number] [place] [address] [place] PT panel Coag (PPP)on 2024 INR Coag (PPP) [Relative time] 1.8 {INR} High 0.9-1.3 [facility] Comment on above: Order Comment: Spechelder ramirez Type: BLOOD SPECIMENOrdering Facility: [facility] Address: [address] [place] [address] Result Comment: Sarah min K Antagonist (VKA) Therapeutic Range: INR 2 to 3 (Target INR of 2.5)Note: For patients treated with VKA drugs, such as warfarin, the [place] [employer] 2012 Guideline recommends [...] al. Chest 2012, 141:7S-47SNishimnicolle RA, et al. [facility] 2017, 70: 252-289 Performed By: #### 3 255-7, 71635-1 ####[facility] LABCLIA [id number] [address] [address] [place] PT Coag (PPP) [Time] 19.2 s High 9.7-13.0 [facility] Comment on above: Order Comment: Ezekiel ramirez Type: BLOOD SPECIMENOrdering Facility: [facility] Address: [address] [place] [address] Performed By: #### 3 255-7, 04400-6 ####[facility] LABIA [id number] [place] [address] [place] Phosphate SerPl-mCncon 11-14 Phosphate [Mass/Vol] 1.9 mg/dL Low 2.7-4.8 [facility] Comment on above: Order Comment: Speci men Type: BLOOD SPECIMENOrdering Facility: [facility] Address: [address] [place] [address] Performed By: #### 2 4321-2, 81308-9, 2777-1, 25868-5 ####[facility] LABCLIA [id number] [place] [address] [place] URINALYSIS, REFLEX MICROSCOP ICon 11-14-2024 Bacteria LM.HPF (Urine sed) [#/Area] Negative Normal Negative [facility] Comment on above: Order Comment: Speci men Type: URINE SPECIMENOrdering Facility: [facility] Address: [address] [place] [address] Performed By: #### L [id number] ####[facility] LABCLIA [id number] [place] [address] [place] Bilirubin Ql (U) 1+ Abnormal Negative [facility] Comment on above: Order Comment: Speci men Type: URINE SPECIMENOrdering Facility: [facility] Address: [address] [place] [address] Result Comment: Sugg est correlation with clinical findings and serum bilirubin if clinically indicated. Performed By: #### L [id number] ####[facility] LABCLIA [id number] [place] [address] [place] Clarity (Unsp spec) Cloudy Abnormal Clear [facility] Comment on above: Order Comment: Speci men Type: URINE SPECIMENOrdering Facility: [facility] Address: [address] [place] [address] Performed By: #### L [id number] ####[facility] LABCLIA [id number] [place] [address] [place] Color (U) Marshall Abnormal Yellow [facility] Comment on above: Order Comment: Speci men Type: URINE SPECIMENOrdering Facility: [facility] Address: [address] [place] [address] Performed By: #### L [id number] ####[facility] LABCLIA [id number] [place] [address] [place] Epithelial cells LM.HPF (Urine sed) [#/Area] None Seen Normal [facility] Comment on above: Order Comment: Speci men Type: URINE SPECIMENOrdering Facility: [facility] Address: [address] [place] [address] Performed By: #### L [id number] ####[facility] LABCLIA [id number] [address] Glucose Test strip (U) [Mass/Vol] Negative Normal Negative [facility] Comment on above: Order Comment: Speci men Type: URINE SPECIMENOrdering Facility: [facility] Address: [address] [place] [address] Performed By: #### L [id number] ####[facility] LABCLIA [id number] [place] [address] [place] Hemoglobin Ql (U) 3+ Abnormal Negative [facility] Comment on above: Order Comment: Speci men Type: URINE SPECIMENOrdering Facility: [facility] Address: [address] [place] [address] Performed By: #### L [id number] ####[facility] LABCLIA [id number] [place] [id number] [place] Hyaline casts (Urine sed) [#/Area] 0 /[LPF] Normal 0 /LPF [facility] Comment on above: Order Comment: Speci men Type: URINE SPECIMENOrdering Facility: [facility] Address: [address] [place] [address] Performed By: #### L [id number] ####[facility] LABCLIA [id number] [place] [id number] [place] Ketones Ql (U) Negative Normal Negative [facility] Comment on above: Order Comment: Speci men Type: URINE SPECIMENOrdering Facility: [facility] Address: [address] [place] [address] Performed By: #### L [id number] ####[facility] LABCLIA [id number] [place] [address] [place] Leukocyte esterase Test strip Ql (U) 3+ Abnormal Negative [facility] Comment on above: Order Comment: Speci men Type: URINE SPECIMENOrdering Facility: [facility] Address: [address] [place] [address] Performed By: #### L [id number] ####[facility] LABCLIA [id number] [place] [address] [place] Nitrite Ql (U) Negative Normal Negative [facility] Comment on above: Order Comment: Speci men Type: URINE SPECIMENOrdering Facility: [facility] Address: [address] [place] [address] Performed By: #### L [id number] ####[facility] LABCLIA [id number] [place] [address] [place] pH (U) 6.0 [pH] Normal <8.5 [facility] Comment on above: Order Comment: Speci men Type: URINE SPECIMENOrdering Facility: [facility] Address: [address] [place] [address] Performed By: #### L [id number] ####[facility] LABCLIA [id number] [place] [address] [place] Protein (U) [Mass/Vol] 2+ Abnormal Negative [facility] Comment on above: Order Comment: Speci men Type: URINE SPECIMENOrdering Facility: [facility] Address: [address] [place] [address] Performed By: #### L [id number] ####[facility] LABCLIA [id number] [place] [address] [place] RBC LM.HPF (Urine sed) [#/Area] /[HPF] Abnormal 0-2 /HPF [facility] Comment on above: Order Comment: Speci men Type: URINE SPECIMENOrdering Facility: [facility] Address: [address] [place] [address] Performed By: #### L [id number] ####[facility] LABIA [id number] [place] [address] [place] Specific gravity (U) [Rel density] 1.017 Normal 1.005-1.030 [facility] Comment on above: Order Comment: Speci men Type: URINE SPECIMENOrdering Facility: [facility] Address: [address] [place] [address] Performed By: #### L [id number] ####[facility] LABIA [id number] [address] [place] Urobilinogen Ql (U) 0.2 EU/dL Normal 0.2-1.0 EU/dL [facility] Comment on above: Order Comment: Speci men Type: URINE SPECIMENOrdering Facility: [facility] Address: [address] [place] [address] Performed By: #### L [id number] ####[facility] LABIA [id number] [place] [address] [place] WBC LM.HPF (Urine sed) [#/Area] /[HPF] Abnormal 0-5 /HPF [facility] Comment on above: Order Comment: Speci men Type: URINE SPECIMENOrdering Facility: [facility] Address: [address] [place] [address] Performed By: #### L [id number] ####[facility] LABCLIA [id number] [place] [address] [place] Yeast.budding LM.HPF (Urine sed) [#/Area] Present Abnormal None Seen [facility] Comment on above: Order Comment: Speci men Type: URINE SPECIMENOrdering Facility: [facility] Address: [address] [place] [address] Performed By: #### L [id number] ####[facility] LABCLIA [id number] [address] [place] 25(OH)D3 [facility]-ncon 2024 25-hydroxyvitamin D3 [Mass/Vol] 16.2 ng/mL Low 31.0-80.0 [facility] Comment on above: Order Comment: Speci men Type: BLOOD SPECIMENOrdering Facility: [facility] Address: [address] [place] [address] Performed By: #### 7 852-7, PAVANG VZVG2, 1989- ####[facility] LABIA [id number] [address] [place] A-Tocopherol Vit E [facility]-n con 11-13-2024 Alpha tocopherol [Mass/Vol] 3.3 mg/L Low 6.0-23.0 [facility] Comment on above: Order Comment: Speci men Type: BLOOD SPECIMENOrdering Facility: [facility] Address: [address] [place] [address] Performed By: #### 2 923-1, 1823-4 ####[facility] [id number] [address] [place] ALPHA-1 ANTITRYPSIN GENOon 0 11-13-2024 HA1AT REVIEWED BY Michelle [facility] Comment on above: Order Comment: Speci men Type: BLOOD SPECIMENOrdering Facility: [facility] Address: [address] [place] [address] Result Comment: Alph a-1 Antitrypsin GenotypingLaboratory Accession Number: [id number]:No Variant Detected in SERPINA1 (PI*MM)Interpretation:DNA testing indicates [...] the two mostcommon pathogenic variants: S (c.863A>T, p.Pzy839Wtp, g.50906273), Z(c.1096G>A, p.Cyf562Rhp, g.78697026), and the rarer variants: F(c.739C>T, p.Hqf581Qml, g.25874329), I (c.187C>T, p.Nyu63Sxm,g.45339937).Limitations:This Laboratory Developed Test (LDT) is designed to [...] was developed and its performance characteristics determinedby [facility]'s [facility] Department. Ithas not been cleared or approved by the FDA. [facility]'s[facility] is regulated under CLIAas certified to perform high-complexity testing. This test is used forclinical purposes. It should not be regarded as investigational or forresearch.Test performed at [facility], [address], [place], [place]. CLIA Number: [id number]:1) Kait HIRSCH, Samir G, Essence ML, Ilan [...] Salvador SJ, Nicole. Molecular characterisation of three cwocv-7-qxsguegjbay deficiencyvariants: proteinase inhibitor (Pi) nullcardiff (Ndx235----Swg);PiMmalton (Vcw20----axwzshtd) and PiI (Kkq75----Qrh). Hum Trisha. ;84(1):55-8.4) Flor EK and Kait HIRSCH. Clinical practice.Alpha1-antitrypsin deficiency. N Engl J Med. 2008;360(66)7781-16.5) Margot BETANCOURT, Kwame F, Prakash HIRSCH. The significance of the F variantof gwhbo-6-ovedznmokqi and unique case report of a PiFF homozygote.[facility] Pulm Med. 2014 Mar 10;14:132.6) Ivania MARIE, Elena SHETTY, and Jaziel Mckinney Alpha-1 AntitrypsinDeficiency. 2005May 30 [Updated 2017 August 22]. In: Juanito HIRSCH, Barbara, Nemesio TO, et al., editors. [employer] [Internet]. [place] ([place]):[facility], [place]; 2863-7412. Available from:http://www.ncbi.nlm.nih.gov/books/REH6596/Interpretation performed at remote location (R0A1) by Fifi España MD Performed By: #### H A1AT ####[facility] ILLUM[facility] LIMSCLIA [id number] [place] [address] [place] ANES POSTPROC EVALon 025 ANES POSTPROC EVAL Normal [facility] ANES PRE-OPon 11-13-2024 ANES PRE-OP Normal [facility] Alpha tocopherol [Mass/Vol]o n 11-13-2024 Beta+gamma tocopherol [Mass/Vol] 0.6 mg/L Normal 0.3-3.2 [facility] Comment on above: Order Comment: Speci men Type: BLOOD SPECIMENOrdering Facility: [facility] Address: [address] [place] [address] Result Comment: This test was developed, and its performance characteristics determined by the [facility] Department of Pathology and Laboratory Medicine. It has not been cleared or approved by the FDA. The [facility] Department of Pathology and Laboratory Medicine is regulated under CLIA as qualified to perform high-complexity testing. This test is used for clinical purposes. It should not be regarded as investigational or for research. Performed By: #### 2 923-1, 1823-4 ####[facility] LABCLIA [id number] [place] [address] [place] Basic metabolic 2000 panelon 11-13-2024 Anion gap [Moles/Vol] 9 mmol/L Normal 8-15 [facility] Comment on above: Order Comment: Speci men Type: BLOOD SPECIMENOrdering Facility: [facility] Address: [address] [place] [address] Performed By: #### 2 4321-2, 69241-5, 46108-3, 66275-5 ####[facility] LABCLIA [id number] [address] [address] [place] Calcium [Mass/Vol] 9.1 mg/dL Normal 8.5-10.2 [facility] Comment on above: Order Comment: Speci men Type: BLOOD SPECIMENOrdering Facility: [facility] Address: [address] [place] [address] Performed By: #### 2 4321-2, 82255-6, 74268-5, 36525-1 ####[facility] LABCLIA [id number] [place] [id number] [place] Chloride [Moles/Vol] 99 mmol/L Normal 98-107 [facility] Comment on above: Order Comment: Speci men Type: BLOOD SPECIMENOrdering Facility: [facility] Address: [address] [place] [address] Performed By: #### 2 4321-2, 15525-0, 11428-8, 74994-6 ####[facility] LABIA [id number] [place] [id number] [place] CO2 [Moles/Vol] 16 mmol/L Low 22-30 [facility] [facility] Comment on above: Order Comment: Speci men Type: BLOOD SPECIMENOrdering Facility: [facility] Address: [address] [place] [address] Performed By: #### 2 4321-2, 76661-7, 52722-5, 15311-9 ####[facility] LABIA [id number] [address] [address] [place] Creatinine [Mass/Vol] 1.10 mg/dL Normal 0.73-1.22 [facility] Comment on above: Order Comment: Speci men Type: BLOOD SPECIMENOrdering Facility: [facility] Address: [address] [place], [place] [address] Performed By: #### 2 4321-2, 68524-3, 04624-5, 32450-3 ####[facility] LABIA [id number] [place] [address] [place] Creatinine and Glomerular filtration rate.predicted panel (S/P/Bld) 78 mL/min/1.73m??? Normal >=60 [facility] Comment on above: Order Comment: Ezekiel ramirez Type: BLOOD SPECIMENOrdering Facility: [facility] Address: [address] [place] [address] Result Comment: Patric mated Glomerular Filtration Rate [...] actual GFR. Performed By: #### 2 4321-2, 94465-3, 44505-5, 87597-5 ####[facility] LABIA [id number] [place] [address] [place] Glucose [Mass/Vol] 278 mg/dL High 74-99 [facility] Comment on above: Order Comment: Ezekiel ramirez Type: BLOOD SPECIMENOrdering Facility: [facility] Address: [address] [place] [address] Result Comment: The [place] [employer] (ADA) provides guidance for cutoff [...] Standards of Medical Care in Diabetes 2016, [place] [employer]. Diabetes Care. 2016.39(Suppl 1). Performed By: #### 2 4321-2, 42213-2, 09297-9, 64539-3 ####[facility] LABIA [id number] [place] [address] [place] Potassium [Moles/Vol] 4.1 mmol/L Normal 3.7-5.1 [facility] Comment on above: Order Comment: Speci men Type: BLOOD SPECIMENOrdering Facility: [facility] Address: [address] [place] [address] Performed By: #### 2 4321-2, 15602-9, 63888-3, 11864-6 ####[facility] LABIA [id number] [place] [address] [place] Sodium [Moles/Vol] 124 mmol/L Low 136-144 [facility] Comment on above: Order Comment: Speci men Type: BLOOD SPECIMENOrdering Facility: [facility] Address: [address] [place] [address] Performed By: #### 2 4321-2, 00206-8, 49625-8, 52788-2 ####[facility] [id number] [place] [address] [place] Urea nitrogen [Mass/Vol] 20 mg/dL Normal 9-24 [facility] Comment on above: Order Comment: Speci men Type: BLOOD SPECIMENOrdering Facility: [facility] Address: [address] [place] [address] Performed By: #### 2 4321-2, 58066-2, 70820-1, 14166-2 ####[facility] [id number] [place] [address] [place] CBC W Auto Differential pane l (Bld)on 11-13-2024 Basophils (Bld) [#/Vol] 10*3/uL Normal <0.11 [facility] Comment on above: Order Comment: Speci men Type: BLOOD SPECIMENOrdering Facility: [facility] Address: [address] [place] [address] Performed By: #### 5 7021-8 ####[facility] LABCLIA [id number] [address], [address] [place] Basophils/100 WBC (Bld) 0.4 % Normal [facility] Comment on above: Order Comment: Speci men Type: BLOOD SPECIMENOrdering Facility: [facility] Address: [address] [place] [address] Performed By: #### 5 7021-8 ####[facility] LABCLIA [id number] [address], [place] [address] [place] Differential cell count method Nom (Bld) Auto Normal [facility] Comment on above: Order Comment: Speci men Type: BLOOD SPECIMENOrdering Facility: [facility] Address: [address] [place] [address] Performed By: #### 5 7021-8 ####[facility] LABCLIA [id number] [address], [address] [place] Eosinophils (Bld) [#/Vol] 0.18 10*3/uL Normal <0.46 [facility] Comment on above: Order Comment: Speci men Type: BLOOD SPECIMENOrdering Facility: [facility] Address: [address] [place] [address] Performed By: #### 5 7021-8 ####[facility] LABCLIA [id number] [address] STATES OF [facility] Eosinophils/100 WBC (Bld) 3.3 % Normal [facility] Comment on above: Order Comment: Speci men Type: BLOOD SPECIMENOrdering Facility: [facility] Address: [address] [place] [address] Performed By: #### 5 7021-8 ####[facility] LABCLIA [id number] [place] [address] [place] Erythrocyte distribution width (RBC) [Ratio] 17.0 % High 11.5-15.0 [facility] Comment on above: Order Comment: Speci men Type: BLOOD SPECIMENOrdering Facility: [facility] Address: [address] [place] [address] Performed By: #### 5 7021-8 ####[facility] LABIA [id number] [place] [address] [place] Hematocrit (Bld) [Volume fraction] 21.6 % Low 39.0-51.0 [facility] Comment on above: Order Comment: Speci men Type: BLOOD SPECIMENOrdering Facility: [facility] Address: [address] [place] [address] Performed By: #### 5 7021-8 ####[facility] LABIA [id number] [place] [address] [place] Hemoglobin (Bld) [Mass/Vol] 7.4 g/dL Low 13.0-17.0 [facility] Comment on above: Order Comment: Speci men Type: BLOOD SPECIMENOrdering Facility: [facility] Address: [address] [place] [address] Performed By: #### 5 7021-8 ####[facility] LABIA [id number] [place] [address] [place] Immature granulocytes (Bld) [#/Vol] 0.04 10*3/uL Normal <0.10 [facility] Comment on above: Order Comment: Speci men Type: BLOOD SPECIMENOrdering Facility: [facility] Address: [address] [place] [address] Performed By: #### 5 7021-8 ####[facility] LABIA [id number] [place] [address] [place] Immature granulocytes/100 WBC (Bld) 0.7 % Normal [facility] Comment on above: Order Comment: Speci men Type: BLOOD SPECIMENOrdering Facility: [facility] Address: [address] [place] [address] Performed By: #### 5 7021-8 ####[facility] LABCLIA [id number] [place] [address] [place] Lymphocytes (Bld) [#/Vol] 0.64 10*3/uL Low 1.00-4.00 [facility] Comment on above: Order Comment: Speci men Type: BLOOD SPECIMENOrdering Facility: [facility] Address: [address] [place] [address] Performed By: #### 5 7021-8 ####[facility] LABCLIA [id number] [place] [address] [place] Lymphocytes/100 WBC (Bld) 11.6 % Normal [facility] Comment on above: Order Comment: Speci men Type: BLOOD SPECIMENOrdering Facility: [facility] Address: [address] [place] [address] Performed By: #### 5 7021-8 ####[facility] LABCLIA [id number] [place] [address] [place] MCH (RBC) [Entitic mass] 31.8 pg Normal 26.0-34.0 [facility] Comment on above: Order Comment: Speci men Type: BLOOD SPECIMENOrdering Facility: [facility] Address: [address] [place] [address] Performed By: #### 5 7021-8 ####[facility] LABCLIA [id number] [place] [address] [place] MCHC (RBC) [Mass/Vol] 34.3 g/dL Normal 30.5-36.0 [facility] Comment on above: Order Comment: Speci men Type: BLOOD SPECIMENOrdering Facility: [facility] Address: [address] [place] [address] Performed By: #### 5 7021-8 ####[facility] LABCLIA [id number] [address] [id number] [address] [place] MCV (RBC) [Entitic vol] 92.7 fL Normal 80.0-100.0 C [facility] Comment on above: Order Comment: Speci men Type: BLOOD SPECIMENOrdering Facility: [facility] Address: [address] [place] [address] Performed By: #### 5 7021-8 ####[facility] LABCLIA [id number] [facility] [place] [address] [place] Monocytes (Bld) [#/Vol] 0.68 10*3/uL Normal <0.87 [facility] Comment on above: Order Comment: Speci men Type: BLOOD SPECIMENOrdering Facility: [facility] Address: [address] [place] [address] Performed By: #### 5 7021-8 ####[facility] LABCLIA [id number] [place] [address] [place] Monocytes/100 WBC (Bld) 12.4 % Normal [facility] Comment on above: Order Comment: Speci men Type: BLOOD SPECIMENOrdering Facility: [facility] Address: [address] [place] [address] Performed By: #### 5 7021-8 ####[facility] LABCLIA [id number] [place] [address] [place] Neutrophils (Bld) [#/Vol] 3.94 10*3/uL Normal 1.45-7.50 [facility] Comment on above: Order Comment: Speci men Type: BLOOD SPECIMENOrdering Facility: [facility] Address: [address] [place] [address] Performed By: #### 5 7021-8 ####[facility] LABCLIA [id number] [place] [address] [place] Neutrophils/100 WBC (Bld) 71.6 % Normal [facility] Comment on above: Order Comment: Speci men Type: BLOOD SPECIMENOrdering Facility: [facility] Address: [address] [place] [address] Performed By: #### 5 7021-8 ####[facility] LABCLIA [id number] [place] [address] [place] Nucleated RBC (Bld) [#/Vol] 10*3/uL Normal <0.01 [facility] Comment on above: Order Comment: Speci men Type: BLOOD SPECIMENOrdering Facility: [facility] Address: [address] [place] [address] Performed By: #### 5 7021-8 ####[facility] LABIA [id number] [place] [address] [place] Nucleated RBC/100 WBC (Bld) [Ratio] 0.0 /100 WBC Normal [facility] Comment on above: Order Comment: Speci men Type: BLOOD SPECIMENOrdering Facility: [facility] Address: [address] [place] [address] Performed By: #### 5 7021-8 ####[facility] LABIA [id number] [place] [address] [place] Platelet mean volume (Bld) [Entitic vol] 11.7 fL Normal 9.0-12.7 [facility] Comment on above: Order Comment: Speci men Type: BLOOD SPECIMENOrdering Facility: [facility] Address: [address] [place] [address] Performed By: #### 5 7021-8 ####[facility] LABIA [id number] [place] [address] [place] Platelets (Bld) [#/Vol] 38 10*3/uL Low 150-400 C [facility] Comment on above: Order Comment: Speci men Type: BLOOD SPECIMENOrdering Facility: [facility] Address: [address] [place] [address] Result Comment: Resu lts checked and verified.No clot detected. Performed By: #### 5 7021-8 ####[facility] LABCLIA [id number] [place] [address] [place] RBC (Bld) [#/Vol] 2.33 10*6/uL Low 4.20-6.00 [facility] Comment on above: Order Comment: Speci men Type: BLOOD SPECIMENOrdering Facility: [facility] Address: [address] [place] [address] Performed By: #### 5 7021-8 ####[facility] [id number] [place] [address] [place] WBC (Bld) [#/Vol] 5.50 10*3/uL Normal 3.70-11.00 [facility] Comment on above: Order Comment: Speci men Type: BLOOD SPECIMENOrdering Facility: [facility] Address: [address] [place] [address] Performed By: #### 5 7021-8 ####[facility] [id number] [place] [address] [place] CMV IgG Qnon 11-13-2024 CMV IGG QUAL Negative Normal Negative [facility] Comment on above: Order Comment: Speci men Type: BLOOD SPECIMENOrdering Facility: [facility] Address: [address] [place] [address] Result Comment: No s erological evidence of past exposure to Cytomegalovirus. Cannot exclude recent infection if the specimen collected within 4-6 weeks after infection. Performed By: #### 7 852-7, MEASLG, VZVG2, 1988-10 ####[facility] LABIA [id number] [place] [address] [place] CMV IgG SerPl-aCncon 025 CMV IgG Qn 0.37 U/mL Normal [facility] Comment on above: Order Comment: Speci men Type: BLOOD SPECIMENOrdering Facility: [facility] Address: [address] [place] [address] Result Comment: The magnitude of the measured result is not indicative of the amount of antibody present.U/mL values are interpreted as follows:Negative <0.6Equivocal 0.6 to <0.70Positive >=0.70 Performed By: #### 7 852-7, SKIP TSAIG2, 1988-10 ####[facility] LABCLIA [id number] [place] [address] [place] CONSULT PROGon 11-13-2024 CONSULT PROG Normal [facility] CYTOLOGY NON-GYNon 5 AP DISCLAIMER Normal [facility] Comment on above: Order Comment: Speci men Type: FLUID SPECIMENOrdering Facility: [facility] Address: [address] [place] [address] Result Comment: Shellie pugh Developed Test (LDT) Disclaimer:Performance characteristics of immunohistochemical, immunofluorescent, and chromogenic in-situ hybridization tests have been determined by the performing laboratory within [facility]'s [facility] Pathology and Laboratory Medicine Department ([facility], [facility], [facility], [facility], [facility], [facility], or [facility]) in a manner consistent with CLIA requirements. One or more of these tests may not have been cleared or approved by the FDA. [facility] is regulated under CLIA as qualified to perform high-complexity testing. These tests are used for clinical purposes. These should not be regarded as investigational or for research. Positive and negative controls stain appropriately. Performed By: #### C YTONON ####[facility] LABCLIA [id number] [place] [id number] [place] CASE REPORT Normal [facility] Comment on above: Order Comment: Speci men Type: FLUID SPECIMENOrdering Facility: [facility] Address: [address] [place] [address] Result Comment: [facility] Cytology Report Case: [id number] Provider: Deb Fox MD Collected: 11/13/2024 02:46 PMOrdering Location: [place] [address] Received: 11/15/2024 05:01 AMPathologist: Foster Newton MDSpecimen: Urine, Midstream Performed By: #### C YTONON ####[facility] LABCLIA [id number] [address] [place] [address] [place] CLINICAL HISTORY Staghorn calculi, s/ p L sided stenting with hematuria Normal [facility] Comment on above: Order Comment: Speci men Type: FLUID SPECIMENOrdering Facility: [facility] Address: [address] [place] [address] Performed By: #### C YTONON ####[facility] LABCLIA [id number] [address] [place] [address] [place] DIAGNOSIS COMMENT Normal [facility] Comment on above: Order Comment: Speci men Type: FLUID SPECIMENOrdering Facility: [facility] Address: [address] [place] [address] Result Comment: A. F ungal yeast forms are seen, morphologically consistent with Mary species. Clinical correlation is suggested. Performed By: #### C YTONON ####[facility] LABCLIA [id number] [address] [address] [place] FINAL DIAGNOSIS Normal [facility] Comment on above: Order Comment: Speci men Type: FLUID SPECIMENOrdering Facility: [facility] Address: [address] [place] [address] Result Comment: A - Urine, Voided: Negative for high-grade urothelial carcinoma. Abundant acute inflammation (see comment). at 1141 EDT Performed By: #### C YTONON ####[facility] LABCLIA [id number] [address] [place] [address] [place] FINAL PERFORMING LAB Normal [facility] Comment on above: Order Comment: Speci men Type: FLUID SPECIMENOrdering Facility: [facility] Address: [address] [place], [place] [address] Result Comment: Tech nical component, dental scheduling coordinator screening performed at: [facility], [address] [place] [address] CLIA: [id number] interpretation performed at: [facility], [address] [place] [address] CLIA# [id number] Director: Titi Voss MD Performed By: #### C YTONON ####[facility] LABCLIA [id number] [place] [address] [place] GROSS DESCRIPTION Normal [facility] Comment on above: Order Comment: Speci men Type: FLUID SPECIMENOrdering Facility: [facility] Address: [address] [place] [address] Result Comment: A. U rine, Voeddowtp24 cc cloudy lexis fluid . ThinPrep prepared. Performed By: #### C YTONON ####[facility] LABCLIA [id number] [place] [address] [place] EBV capsid IgG Qn (S)on 11-02 EBV VCA IGG, QUAL Positive Abnormal Negative [facility] Comment on above: Order Comment: Speci men Type: BLOOD SPECIMENOrdering Facility: [facility] Address: [address] [place] [address] Result Comment: The result suggests recent or past EBV infection. The final interpretation should be done in the context of other EBV serology panel results. Performed By: #### 8 039-0, 7885-7 ####[facility] LABCLIA [id number] [place] [address] [place] Fibrinogen PPP-mCncon 2024 Fibrinogen Coag (PPP) [Mass/Vol] 94 mg/dL Low 200-400 [facility] Comment on above: Order Comment: Speci men Type: BLOOD SPECIMENOrdering Facility: [facility] Address: [address] [place] [address] Result Comment: Samp le checked for clot. Performed By: #### 3 4528-0, 3255-7 ####[facility] LABCLIA [id number] [place] [address] [place] HBV core Ab Ser Qlon 025 HBV core Ab Ql (S) Negative Normal Negative [facility] Comment on above: Order Comment: Speci men Type: BLOOD SPECIMENOrdering Facility: [facility] Address: [address] [place] [address] Result Comment: No e vidence of current or past infection with Hepatitis B virus. Should recent infection be suspected, repeat testing may be considered 3-4 weeks after this draw. Performed By: #### 3 1201-7, 96491-2, [facility], 5195-3, 45657-9 ####[facility] LABIA [id number] [place] [address] [place] HBV surface Ab Ql (S)on 11-02 HBV surface Ab Qn (S) <8.00 Normal [facility] Comment on above: Order Comment: Speci men Type: BLOOD SPECIMENOrdering Facility: [facility] Address: [address] [place] [address] Result Comment: <8 m IU/mL: No serological evidence of immunity to Hepatitis B Virus.>/= 8 to <12 mIU/mL: No serological evidence of immunity to Hepatitis B Virus.>/= 12 mIU/mL: Consistent with serological evidence of immunity to Hepatitis B Virus. Performed By: #### 3 1201-7, 97893-6, AHAVG, 5195-3, 32461-4 ####[facility] LABIA [id number] [address] [place] HBV surface Ab Ser Qlon 11-02 HBV surface Ab Ql (S) Negative Normal [facility] Comment on above: Order Comment: Speci men Type: BLOOD SPECIMENOrdering Facility: [facility] Address: [address] [place] [address] Result Comment: No s erological evidence of immunity to Hepatitis B Virus. Performed By: #### 3 1201-7, 13757-1, AHAVG, 5194-3, 41348-7 ####[facility] LABCLIA [id number] [place] [id number] [place] HBV surface Ag Ser Qlon 11-02 HBV surface Ag Ql (S) Negative Normal Negative [facility] Comment on above: Order Comment: Speci men Type: BLOOD SPECIMENOrdering Facility: [facility] Address: [address] [place] [address] Performed By: #### 3 1201-7, 03283-2, AHAVG, 5194-3, 56091-6 ####[facility] LABIA [id number] [address] [place] HCV Ab Ser Qlon 11-13-2024 HCV Ab Ql (S) Negative Normal Negative [facility] Comment on above: Order Comment: Speci men Type: BLOOD SPECIMENOrdering Facility: [facility] Address: [address] [place] [address] Result Comment: The result suggests no evidence of infection with Hepatitis C virus. Should recent infection be suspected, repeat testing may be considered 4-6 weeks after this draw. Performed By: #### 1 6128-1 ####[facility] LABIA [id number] [address] STATES [facility] HEPATITIS A ANTIBODY, IGGon 11-13-2024 HAV IgG Ql (S) Negative Normal [facility] Comment on above: Order Comment: Speci men Type: BLOOD SPECIMENOrdering Facility: [facility] Address: [address] [place] [address] Result Comment: No s erological evidence of past exposure to hepatitis A virus or hepatitis A vaccination. Should recent infection be suspected, repeat testing is suggested 3-4 weeks after this draw. Performed By: #### 3 1201-7, 83747-3, AHAVG, 5194-3, 01877-7 ####[facility] LABCLIA [id number] [place] [id number] [place] Performed By: #### 7 3752-8, AHAVG, STRSER, MUMPSG ####[facility] LABCLIA [id number] [place] [address] [place] HIV 1+2 Ab IA Qlon 5 HIV 1 and 2 Ab IA.rapid Nom (S/P/Bld) Normal [facility] Comment on above: Order Comment: Speci men Type: BLOOD SPECIMENOrdering Facility: [facility] Address: [address] [place] [address] Result Comment: Test not indicated. Performed By: #### 3 1201-7, 24605-6, AHAVG, 5195-3, 06813-4 ####[facility] LABCLIA [id number] [place] [address] [place] HIV 1+2 Ab+HIV1 p24 Ag IA Ql Non-Reactive Normal Nonreactive [facility] Comment on above: Order Comment: Speci men Type: BLOOD SPECIMENOrdering Facility: [facility] Address: [address] [place] [address] Performed By: #### 3 1201-7, 84120-6, AHAVG, 5195-3, 06949-0 ####[facility] [facility] [id number] [place] [address] [place] HIV immunoassay testing algorithm interpretation (S/P/Bld) [Interp] Normal [facility] Comment on above: Order Comment: Speci men Type: BLOOD SPECIMENOrdering Facility: [facility] Address: [address] [place] [address] Result Comment: No e vidence of HIV-1 or HIV-2 infection. Should recent infection be suspected, repeat testing may be considered 2-3 weeks after this draw.[place] Rev. Code 3701.243(E): This information has been [...] or diagnoses. Performed By: #### 3 1201-7, 25973-9, AHAVG, 5195-3, 56284-5 ####[facility] LABCLIA [id number] [address] [place] [address] [place] Hepatic function 2000 panelo n 11-13-2024 Albumin [Mass/Vol] 2.8 g/dL Low 3.9-4.9 [facility] Comment on above: Order Comment: Speci men Type: BLOOD SPECIMENOrdering Facility: [facility] Address: [address] [place] [address] Performed By: #### 2 4321-2, 94953-5, 41145-2, 41721-2 ####[facility] LABCLIA [id number] [place] [id number] [place] ALP [Catalytic activity/Vol] 225 U/L High 38-113 [facility] Comment on above: Order Comment: Speci men Type: BLOOD SPECIMENOrdering Facility: [facility] Address: [address] [place] [address] Performed By: #### 2 4321-2, 91200-5, 39420-1, 36878-2 ####[facility] LABCLIA [id number] [address] [address] [place] ALT [Catalytic activity/Vol] 22 U/L Normal 10-54 [facility] Comment on above: Order Comment: Speci men Type: BLOOD SPECIMENOrdering Facility: [facility] Address: [address] [place] [address] Performed By: #### 2 4321-2, 21390-6, 97828-4, 08072-7 ####[facility] LABCLIA [id number] [address] [address] [place] AST [Catalytic activity/Vol] 36 U/L Normal 14-40 [facility] Comment on above: Order Comment: Speci men Type: BLOOD SPECIMENOrdering Facility: [facility] Address: [address] [place] [address] Performed By: #### 2 4321-2, 79745-6, 07981-0, 21019-0 ####[facility] LABCLIA [id number] [place] [address] [address] [place] Bilirubin [Mass/Vol] 1.8 mg/dL High 0.2-1.3 [facility] Comment on above: Order Comment: Speci men Type: BLOOD SPECIMENOrdering Facility: [facility] Address: [address] [place] [address] Performed By: #### 2 4321-2, 58498-8, 98503-1, 74827-0 ####[facility] LABCLIA [id number] [place] [address] [place] Bilirubin.conjugated [Mass/Vol] 0.9 mg/dL High <0.3 [facility] Comment on above: Order Comment: Speci men Type: BLOOD SPECIMENOrdering Facility: [facility] Address: [address] [place] [address] Performed By: #### 2 4321-2, 59839-3, 21653-5, 00005-6 ####[facility] LABCLIA [id number] [place] [address] [place] Protein [Mass/Vol] 5.2 g/dL Low 6.3-8.0 [facility] Comment on above: Order Comment: Speci men Type: BLOOD SPECIMENOrdering Facility: [facility] Address: [address] [place] [address] Performed By: #### 2 4321-2, 79627-1, 35486-1, 77981-4 ####[facility] LABCLIA [id number] [facility] [address] [address] [place] LIVER REC INIT W/Uon 025 ALLOGEN RESULTS TO FOLLOW See Allogen report to follow Normal [facility] Comment on above: Order Comment: Speci men Type: BLOOD SPECIMENOrdering Facility: [facility] Address: [address] [place] [address] Performed By: #### L RIPW ####[facility]IESCLIA [id number] [place] [address] [place] LPa SerPl-mCncon 11-13-2024 Lipoprotein a [Mass/Vol] mg/dL Normal <30 [facility] Comment on above: Order Comment: Speci men Type: BLOOD SPECIMENOrdering Facility: [facility] Address: [address] [place] [address] Performed By: #### 1 0835-7 ####[facility] LABCLIA [id number] [place] [address] [place] Lipid 1996 panelon Cholesterol [Mass/Vol] 52 mg/dL Normal <200 [facility] Comment on above: Order Comment: Speci men Type: BLOOD SPECIMENOrdering Facility: [facility] Address: [address] [place] [address] Result Comment: <200 mg/dL, Desirable 200-239 mg/dL, Borderline high>239 mg/dL, High Performed By: #### 2 4321-2, 25322-2, 84574-1, 77500-9 ####[facility] LABCLIA [id number] [address] [place] Cholesterol in HDL [Mass/Vol] 17 mg/dL Low >39 [facility] Comment on above: Order Comment: Speci men Type: BLOOD SPECIMENOrdering Facility: [facility] Address: [address] [place] [address] Result Comment: 40-5 9 mg/dL, Acceptable>59 mg/dL, High: Negative risk factor for coronary heart disease<40 mg/dL, Low: Positive risk factor for coronary heart disease Performed By: #### 2 4321-2, 58110-6, 72804-8, 30787-7 ####[facility] LABCLIA [id number] [address] [address] [place] Cholesterol in LDL [Mass/Vol] 26 mg/dL Normal <100 [facility] Comment on above: Order Comment: Speci men Type: BLOOD SPECIMENOrdering Facility: [facility] Address: [address] [place] [address] Result Comment: <100 mg/dL, Optimal 100-129 mg/dL, Near optimal/above optimal 130-159 mg/dL, Borderline high 160-189 mg/dL, High>189 mg/dL, Very highSecondary prevention optimal LDL Cholesterol levels are recommended to be < 70 mg/dL Performed By: #### 2 4321-2, 74698-4, 44104-9, 42687-5 ####[facility] LABCLIA [id number] [address] [address] [place] Cholesterol in LDL/Cholesterol in HDL [Mass ratio] 1.53 {ratio} Normal <2.54 [facility] Comment on above: Order Comment: Speci men Type: BLOOD SPECIMENOrdering Facility: [facility] Address: [address] [place] [address] Result Comment: Refe rence:1. National Cholesterol Education Program ATP III Guideline At-A-Glance Quick Desk Reference: National Heart, Lung, and Blood Hooper. National Institutes of Health. 2001: NIH Publication No. 01-3305.2. An International Atherosclerosis Society position paper: global recommendations for the management of dyslipidemia: executive summary, Atherosclerosis. 2014: 232(2):410-413. Performed By: #### 2 4321-2, 20931-9, 87876-0, 89406-7 ####[facility] LABCLIA [id number] [address] [address] [place] Cholesterol in VLDL [Mass/Vol] 9 mg/dL Normal <30 [facility] Comment on above: Order Comment: Speci men Type: BLOOD SPECIMENOrdering Facility: [facility] Address: [address], [place] [address] Performed By: #### 2 4321-2, 40009-0, 31131-9, 43311-7 ####[facility] LABCLIA [id number] [facility] [address] [place] [address] [place] Cholesterol non HDL [Mass/Vol] 35 mg/dL Normal <130 [facility] Comment on above: Order Comment: Speci men Type: BLOOD SPECIMENOrdering Facility: [facility] Address: [address] [place] [address] Result Comment: <130 mg/dL, Optimal 130-159 mg/dL, Near optimal/above optimal 160-189 mg/dL, Borderline high 190-219 mg/dL, High>219 mg/dL, Very highSecondary prevention optimal non HDL Cholesterol levels are recommended to be <100 mg/dL Performed By: #### 2 4321-2, 85102-0, 90237-5, 79822-6 ####[facility] LABCLIA [id number] [facility] [address], [place] [address] [place] Cholesterol.total/Donna sterol in HDL [Mass ratio] 3.06 {ratio} Normal <5.10 [facility] Comment on above: Order Comment: Speci men Type: BLOOD SPECIMENOrdering Facility: [facility] Address: [address] [place] [address] Performed By: #### 2 4321-2, 77718-0, 11614-1, 98379-9 ####[facility] LABCLIA [id number] [facility] [place] [id number] [place] FASTING TIME 4 hrs Normal [facility] Comment on above: Order Comment: Speci men Type: BLOOD SPECIMENOrdering Facility: [facility] Address: [address] [place] [address] Performed By: #### 2 4321-2, 27338-8, 47776-2, 13798-8 ####[facility] LABCLIA [id number] [facility] [place] [id number] [place] Triglyceride [Mass/Vol] 45 mg/dL Normal <150 [facility] Comment on above: Order Comment: Speci men Type: BLOOD SPECIMENOrdering Facility: [facility] Address: [address] [place] [address] Result Comment: <150 mg/dL, Normal 150-199 mg/dL, Borderline high 200-499 mg/dL, High>499 mg/dL, Very high Performed By: #### 2 4321-2, 32605-9, 31019-8, 92664-8 ####[facility] LABCLIA [id number] [place] [address] [place] MUMPS IGG ABon 11-13-2024 MuV IgG Ql (S) Negative Abnormal Positive [facility] Comment on above: Order Comment: Speci men Type: BLOOD SPECIMENOrdering Facility: [facility] Address: [address] [place] [address] Result Comment: The result suggests no history of Mumps vaccination or exposure to Mumps virus, however, some individuals with past history of Mumps vaccination may test negative using this test. Please correlate with past history of vaccination if applicable. Performed By: #### 7 3752-8, AHAVG, STRSER, MUMPSG ####[facility] LABIA [id number] [place] [address] [place] NT-proBNP [facility] Natriuretic peptide.B prohormone N-Terminal [Mass/Vol] 1047 pg/mL High <125 [facility] Comment on above: Order Comment: Speci men Type: BLOOD SPECIMENOrdering Facility: [facility] Address: [address] [place] [address] Performed By: #### 2 4321-2, 63217-5, 67842-9, 98217-8 ####[facility] LABCLIA [id number] [place] [id number] [place] NURSING PROGon 11-13-2024 NURSING PROG Normal [facility] NURSING PROG Normal [facility] PHOSPHATIDYLETHANOL (PETH)on 11-13-2024 EER PETH See Note Normal [facility] Comment on above: Order Comment: Speci men Type: BLOOD SPECIMENOrdering Facility: [facility] Address: [address] [place] [address] Result Comment: Auth orized individuals can access the [facility]habi Enhanced Reportwith an [facility] Connect account using the following link.Your local lab can assist you in obtaining the patientreport if you don't have a Connect account.[email or web address] Performed By: #### P ETH ####[facility]IESCLIA [id number] [place] [id number] PETH 16:0/18.2 (PLPETH) <10 [facility] Comment on above: Order Comment: Speci men Type: BLOOD SPECIMENOrdering Facility: [facility] Address: [address] [place] [address] Result Comment: Refe rence ranges are not well established. Performed By: #### P ETH ####[facility]IESCLIA [id number] [place] [address] PETH 16:0/18:1 (POPETH) <10 [facility] Comment on above: Order Comment: Speci men Type: BLOOD SPECIMENOrdering Facility: [facility] Address: [address] [place] [address] Result Comment: PEth 16:0/18:1 (POPEth)Less than 10 ng/mL............Not detectedLess than 20 ng/mL............Abstinence or light redwlmhhwrabfmzbpu21 - 200 ng/mL................Moderate alcohol consumptionGreater than 200 ng/mL........Heavy alcohol consumption or chronicalcohol use(Reference: Alonso Landaverde and Mathew Ha 2018 J. Forensic Sci) Performed By: #### P ETH ####[facility]IESCLIA [id number] [place] [address] PETH INTERPRETATION See Comment Normal [facility] Comment on above: Order Comment: Speci men Type: BLOOD SPECIMENOrdering Facility: [facility] Address: [address] [place], [place] [address] Result Comment: Phos phatidylethanol (PEth) is a [...] was developed and its performance characteristicsdetermined by [employer]. It has not been cleared orapproved by the U.S. Food and Drug Administration. This test wasperformed in a CLIA-certified laboratory and is intended forclinical purposes.Performed By: [employer] [place], [place] [address]Qyxavquetn Director: Lizandro Ordonez MD, PhDCLIA Number: [id number] Performed By: #### P ETH ####LumenisIA [id number] [place] [address] PT panel Coag (PPP)on 2024 INR Coag (PPP) [Relative time] 1.9 {INR} High 0.9-1.3 [facility] Comment on above: Order Comment: Speci men Type: BLOOD SPECIMENOrdering Facility: [facility] Address: [address] [place] [address] [place] [id number] Result Comment: Sarah min K Antagonist (VKA) Therapeutic Range: INR 2 to 3 (Target INR of 2.5)Note: For patients treated with VKA drugs, such as warfarin, the [place] [employer] 2012 Guideline recommends [...] al. Chest 2012, 141:7S-47SNishbethel RA, et al. [facility] 2017, 70: 252-289 Performed By: #### 3 4528-0, 3255-7 ####[facility] [id number] [place] [address] [place] PT Coag (PPP) [Time] 19.9 s High 9.7-13.0 [facility] Comment on above: Order Comment: Ezekiel ramirez Type: BLOOD SPECIMENOrdering Facility: [facility] Address: [address] [place] [address] Performed By: #### 3 4528-0, 3255-7 ####[facility] [id number] [place] [address] [place] Pathology biopsy report Marco Antonio (Tiss)on 11-13-2024 AP DISCLAIMER Normal [facility] Comment on above: Order Comment: Ezekiel ramirez Type: TISSUE SPECIMENOrdering Facility: [facility] Address: [address] [place] [address] Result Comment: Shellie pugh Developed Test (LDT) Disclaimer:Performance characteristics of immunohistochemical, immunofluorescent, and chromogenic in-situ hybridization tests have been determined by the performing laboratory within [facility]'s Thai Torres Pathology and Laboratory Medicine Department ([facility], [facility], [facility], [facility], [facility], [facility], or [facility]) in a manner consistent with CLIA [...] Performed By: #### 6 6121-5 ####[facility]ORYCLIA [id number] [address] LABCLIA [id number] [address] [place] CASE REPORT Normal [facility] Comment on above: Order Comment: Speci men Type: TISSUE SPECIMENOrdering Facility: [facility] Address: [address] [place] [address] Result Comment: [facility] Path[facility] Report Case: [id number] Provider: Thai Pineda MD Collected: 11/13/2024 09:40 AMOrdering Location: [place] [address] Received: 11/15/2024 03:18 PMPathologist: Axel Berger MDSpecimen: Esophagus, Biopsy, r/o esophageal candidiasis Performed By: #### 6 6121-5 ####[facility]ATORYCLIA [id number] [address] LABCLIA [id number] [address] FINAL DIAGNOSIS Normal [facility] Comment on above: Order Comment: Speci men Type: TISSUE SPECIMENOrdering Facility: [facility] Address: [address] [place] [address] Result Comment: Sierraop mikki, biopsy:- Squamous mucosal candidiasis.JEL 11/16/2024 at 1034 EDT Performed By: #### 6 6121-5 ####[facility]ATORYCLIA [id number] [address] LABCLIA [id number] [place] [address] [place] FINAL PERFORMING LAB Normal [facility] Comment on above: Order Comment: Speci men Type: TISSUE SPECIMENOrdering Facility: [facility] Address: [address] [place] [address] Result Comment: Diag nostic interpretation performed at: [facility], [address] [place] [id number] CLIA# [id number] Director: Rick Harris MD Performed By: #### 6 6121-5 ####[facility]ORYCLIA [id number] [address] LABCLIA [id number] [address] STATES [place] GROSS DESCRIPTION Normal [facility] Comment on above: Order Comment: Speci men Type: TISSUE SPECIMENOrdering Facility: [facility] Address: [address] [place] [address] Result Comment: A. E sophagus, BiopsyReceived in formalin are multiple pieces of espitia, soft tissue aggregating to 0.9 x 0.2 x 0.2 cm. Totally submitted in one cassette.BC November 15, 2024 4:50 PMGross examination performed at [facility], [address] [place] [address] Performed By: #### 6 6121-5 ####[facility]ORATORYCLIA [id number] [address] LABCLIA [id number] [place] [address] [place] Phosphate SerPl-mCncon 11-13 Phosphate [Mass/Vol] 1.5 mg/dL Low 2.7-4.8 [facility] Comment on above: Order Comment: Speci men Type: BLOOD SPECIMENOrdering Facility: [facility] Address: [address] [place] [address] Performed By: #### 2 777-1, 3015-3 ####[facility] LABCLIA [id number] [place] [address] [place] RUBEOLA (MEASLES)IGGon 11-13 MEASLES IGG AB, QUAL Positive Normal Positive [facility] Comment on above: Order Comment: Speci men Type: BLOOD SPECIMENOrdering Facility: [facility] Address: [address] [place] [address] Result Comment: The result suggests recent or past exposure to Measles virus or Measles vaccination. The current test does not detect neutralizing antibodies. Positive result may also be seen due to presence of passively-transferred antibodies. Please correlate with patient's history. Performed By: #### 7 852-7, MEASLG, VZVG2, 1988-10 ####[facility] LABCLIA [id number] [place] [address] [place] Reagin and Treponema pallidu m IgG and IgM [Interp]on 11-13-2024 T. pallidum IgG+IgM IA Ql (S) Non-Reactive Normal Nonreactive [facility] Comment on above: Order Comment: Speci [facility] Type: BLOOD SPECIMENOrdering Facility: [facility] Address: [address] [place] [address] Performed By: #### 7 3752-8, AHAVG, STRSER, MUMPSG ####[facility] LABIA [id number] [place] [address] [place] Reagin+T pallidum IgG+IgM Se rPl-Impon 11-13-2024 Reagin and Treponema pallidum IgG and IgM [Interp] Cannot exclude recent Treponemal infection if specimen collected within 7-10 days after appearance of suspect lesions or 2-3 weeks after an exposure. Clinical correlation is required. Normal [facility] Comment on above: Order Comment: Speci [facility] Type: BLOOD SPECIMENOrdering Facility: [facility] Address: [address] [place] [address] Performed By: #### 7 3752-8, AHAVGSHMUEL MUMPSG ####[facility] LABCLIA [id number] [place] [address] [place] STAPHYLOCOCCUS AUREUS AND MR SA SCREEN, PCR, NASALon 11-13-2024 S. aureus and MRSA panel ANANTH+probe (Nose) Not detected Normal Not Detected [facility] Comment on above: Order Comment: Speci men Type: SWABOrdering Facility: [facility] Address: [address] [place] [address] Performed By: #### S APCR ####[facility] LABCLIA [id number] [place] [address] [place] STRONGYLOIDES IGG BLon 11-13 STRONGYLOIDES IGG QUALITATIVE Negative Normal Negative [facility] Comment on above: Order Comment: Speci men Type: BLOOD SPECIMENOrdering Facility: [facility] Address: [address] [place] [address] Performed By: #### S TRSER ####[facility] LABCLIA [id number] [place] [address] [place] Performed By: #### 7 3752-8, AHAVGSHMUEL, MUMPSG ####[facility] LABCLIA [id number] [place] [address] [place] T. gondii IgG Qn (S)on 11-13 TOXO IGG QUAL Negative Normal Negative [facility] Comment on above: Order Comment: Speci men Type: BLOOD SPECIMENOrdering Facility: [facility] Address: [address] [place] [address] Result Comment: No s erological evidence of past exposure to Toxoplasma gondii. Cannot exclude recent infection if the specimen collected within 3-4 weeks after infection. Performed By: #### 8 039-0, 7885-7 ####[facility] LABCLIA [id number] [place] [address] [place] THERAPY NTon 11-13-2024 THERAPY NT Normal [facility] TOXICOLOGY PANEL BLDon 11-13 Acetaminophen [Mass/Vol] ug/mL Low 10-30 [facility] Comment on above: Order Comment: Ezekiel ramirez Type: BLOOD SPECIMENOrdering Facility: [facility] Address: [address] [place] [address] Result Comment: Toxi c > 150 ug/mL 4 hours post ingestionThe Viviana Figueroa nomogram can be used to estimate the probability of hepatotoxicity via the relationship of plasma acetaminophen concentration to the post ingestion interval. (Skylar. Pediatrics. 1975. 55:871 to 876 and Viviana et al. Arch Lithographed Plate Inspector Med. 1981. 141:380 to 385).Reference ranges and high/low indicator flags are provided as general guidelines only. The treating physician must determine appropriate target levels/dosing based on the specific clinical situation. Performed By: #### T OXP ####[facility] LABCLIA [id number] [place] [address] [place] Ethanol [Mass/Vol] mg/dL Normal <11 [facility] Comment on above: Order Comment: Ezekiel ramirez Type: BLOOD SPECIMENOrdering Facility: [facility] Address: [address] [place] [address] Performed By: #### T OXP ####[facility] LABCLIA [id number] [place] [id number] [place] Salicylates [Mass/Vol] mg/dL Low 3.0-30.0 [facility] Comment on above: Order Comment: Ezekiel ramirez Type: BLOOD SPECIMENOrdering Facility: [facility] Address: [address] [place] [address] Result Comment: The therapeutic range varies and has been reported to be 3.0 to 10.0 mg/dL for anti pyretic/analgesic conditions and 15.0 to 30.0 mg/dL for anti inflammatory/rheumatic fever conditions. Ranges published by the instrument pensions retirement plan specialist.Reference ranges and high/low indicator flags are provided as general guidelines only. The treating physician must determine appropriate target levels/dosing based on the specific clinical situation. Performed By: #### T OXP ####[facility] LABCLIA [id number] [place] [address] [place] TSH SerPl-aCncon 11-13-2024 TSH Qn 0.633 m[IU]/L Normal 0.270-4.200 [facility] Comment on above: Order Comment: Speci men Type: BLOOD SPECIMENOrdering Facility: [facility] Address: [address] [place] [address] Performed By: #### 2 777-1, 3016-3 ####[facility] [id number] [place] [address] [place] Upper GI endoscopyon 025 Upper GI endoscopy Normal [facility] VARICELLA ZOSTER IGGon 11-13 VARICELLA ZOSTER IGG, QUAL Positive Normal Positive [facility] Comment on above: Order Comment: [facility]iel [facility] Type: BLOOD SPECIMENOrdering Facility: [facility] Address: [address] [place] [address] Result Comment: The result suggests recent or past exposure to Varicella-Zoster virus or chickenpox vaccination or zoster vaccination. Positive result may also be seen due to presence of passively-transferred antibodies. Please correlate with patient's history. Performed By: #### 7 852-7, MEASLG, VZVG2, 1988-10 ####[facility] LABCLIA [id number] [place] [address] [place] Vit A SerPl-mCncon 5 Retinol [Mass/Vol] 0.03 mg/L Low 0.30-1.20 [facility] Comment on above: Order Comment: Meggani [facility] Type: BLOOD SPECIMENOrdering Facility: [facility] Address: [address] [place] [address] Result Comment: This test was developed, and its performance characteristics determined by the [facility] Department of Pathology and Laboratory Medicine. It has not been cleared or approved by the FDA. The [facility] Department of Pathology and Laboratory Medicine is regulated under CLIA as qualified to perform high-complexity testing. This test is used for clinical purposes. It should not be regarded as investigational or for research. Performed By: #### 2 923-1, 1823-4 ####[facility] [id number] [place] [address] [place] Zinc SerPl-mCncon 11-13-2024 Zinc [Mass/Vol] 60 ug/dL Normal 60-120 [facility] Comment on above: Order Comment: Speci men Type: BLOOD SPECIMENOrdering Facility: [facility] Address: [address] [place] [address] Result Comment: This test was developed, and its performance characteristics determined by the [facility] Department of Pathology and Laboratory Medicine. It has not been cleared or approved by the FDA. The [facility] Department of Pathology and Laboratory Medicine is regulated under CLIA as qualified to perform high-complexity testing. This test is used for clinical purposes. It should not be regarded as investigational or for research. Performed By: #### 5 763-8 ####[facility] [id number] [address] [place] AFP SerPl-mCncon 11-12-2024 AFP [Mass/Vol] 2.25 ng/mL Normal <9.00 [facility] Comment on above: Order Comment: Speci men Type: BLOOD SPECIMENOrdering Facility: [facility] Address: [address] [place] [address] Result Comment: The Alpha-Fetoprotein test was performed using the [employer] DxI immunoenzymatic assay. Results obtained with different assay methods or kits cannot be used interchangeably. Performed By: #### 1 834-1 ####[facility] [id number] [place] [address] [place] ARTERIAL BLOOD GASESon 11-12 Base deficit (BldA) [Moles/Vol] -8 mmol/L Low -2-0 [facility] Comment on above: Order Comment: Speci men Type: ARTERIAL BLOOD SPECIMENOrdering Facility: [facility] Address: [address] [place] [address] Performed By: #### A LLBG ####[facility] LABIA [id number] [place] [address] [place] Body temperature 98.6 [degF] Normal [facility] Comment on above: Order Comment: Speci men Type: ARTERIAL BLOOD SPECIMENOrdering Facility: [facility] Address: [address] [place] [address] Performed By: #### A LLBG ####[facility] LABIA [id number] [place] [address] [place] Calcium.ionized (Bld) [Mass/Vol] 1.20 mmol/L Normal 1.08-1.30 [facility] Comment on above: Order Comment: Speci men Type: ARTERIAL BLOOD SPECIMENOrdering Facility: [facility] Address: [address] [place] [address] Performed By: #### A LLBG ####[facility] [id number] [place] [address] [place] Calcium.ionized adjusted to pH 7.4 (BldA) [Moles/Vol] 1.24 mmol/L Normal 1.08-1.30 [facility] Comment on above: Order Comment: Speci men Type: ARTERIAL BLOOD SPECIMENOrdering Facility: [facility] Address: [address] [place] [address] Performed By: #### A LLBG ####[facility] [id number] [place] [address] [place] Carboxyhemoglobin (BldA) [Mass fraction] 2.0 % Normal 0.0-2.0 [facility] Comment on above: Order Comment: Speci men Type: ARTERIAL BLOOD SPECIMENOrdering Facility: [facility] Address: [address] [place] [address] Result Comment: Carb oxyhemoglobin Reference Range for Smokers: 2.0-8.0% Performed By: #### A LLBG ####[facility] LABCLIA [id number] [address] [place] [address] [place] CO2 (Bld) [Partial pressure] 21 mm Hg Low 36-46 [facility] Comment on above: Order Comment: Speci men Type: ARTERIAL BLOOD SPECIMENOrdering Facility: [facility] Address: [address] [place] [address] Performed By: #### A LLBG ####[facility] LABCLIA [id number] [facility] [address], [place] [address] [place] Glucose [Mass/Vol] 276 mg/dL High 60-105 [facility] Comment on above: Order Comment: Speci men Type: ARTERIAL BLOOD SPECIMENOrdering Facility: [facility] Address: [address] [place] [address] Performed By: #### A LLBG ####[facility] LABCLIA [id number] [place] [address] [place] HCO3 (Bld) [Moles/Vol] 15 mmol/L Low 22-26 [facility] Comment on above: Order Comment: Speci men Type: ARTERIAL BLOOD SPECIMENOrdering Facility: [facility] Address: [address] [place] [address] Performed By: #### A LLBG ####[facility] LABCLIA [id number] [facility] [place] [id number] [place] Hematocrit (Bld) [Volume fraction] 22.4 % Low 39.0-51.0 [facility] Comment on above: Order Comment: Speci men Type: ARTERIAL BLOOD SPECIMENOrdering Facility: [facility] Address: [address] [place], [place] [address] Performed By: #### A LLBG ####[facility] LABCLIA [id number] [facility] [place] [id number] [place] Hemoglobin (Bld) [Mass/Vol] 7.2 g/dL Low 13.0-17.0 [facility] Comment on above: Order Comment: Speci men Type: ARTERIAL BLOOD SPECIMENOrdering Facility: [facility] Address: [address] [place] [id number] Performed By: #### A LLBG ####[facility] LABCLIA [id number] [address] [address] [place] Lactate [Moles/Vol] 2.9 mmol/L High 0.5-2.2 [facility] Comment on above: Order Comment: Speci men Type: ARTERIAL BLOOD SPECIMENOrdering Facility: [facility] Address: [address] [place], [place] [address] Performed By: #### A LLBG ####[facility] LABIA [id number] [place] [id number] [place] Methemoglobin (Bld) [Mass fraction] 1.0 % Normal 0.0-1.5 [facility] Comment on above: Order Comment: Speci men Type: ARTERIAL BLOOD SPECIMENOrdering Facility: [facility] Address: [address] [place], [place] [address] Performed By: #### A LLBG ####[facility] LABIA [id number] [place] [id number] [place] O2 THERAPY RA=Room Air Normal [facility] Comment on above: Order Comment: Speci men Type: ARTERIAL BLOOD SPECIMENOrdering Facility: [facility] Address: [address] [place], [place] [address] Performed By: #### A LLBG ####[facility] LABCLIA [id number] [address] [place] [address] [place] Oxygen (Bld) [Partial pressure] 94 mm Hg Normal 85-95 [facility] Comment on above: Order Comment: Speci men Type: ARTERIAL BLOOD SPECIMENOrdering Facility: [facility] Address: [address] [place], [place] [address] Performed By: #### A LLBG ####[facility] LABIA [id number] [address] [address] [place] Oxyhemoglobin (BldA) [Mass fraction] 96 % Normal 95-98 [facility] Comment on above: Order Comment: Speci men Type: ARTERIAL BLOOD SPECIMENOrdering Facility: [facility] Address: [address] [place] [address] Performed By: #### A LLBG ####[facility] LABCLIA [id number] [place] [id number] [place] pH (Bld) 7.46 [pH] High 7.35-7.45 [facility] Comment on above: Order Comment: Speci men Type: ARTERIAL BLOOD SPECIMENOrdering Facility: [facility] Address: [address] [place] [address] Performed By: #### A LLBG ####[facility] LABCLIA [id number] [place] [address] [place] PO2 / FIO2 RATIO 448 mmHg Normal >300 [facility] Comment on above: Order Comment: Speci men Type: ARTERIAL BLOOD SPECIMENOrdering Facility: [facility] Address: [address] [place] [address] Performed By: #### A LLBG ####[facility] LABCLIA [id number] [place] [id number] [place] Potassium [Moles/Vol] 3.9 mmol/L Normal 3.5-5.0 [facility] Comment on above: Order Comment: Speci men Type: ARTERIAL BLOOD SPECIMENOrdering Facility: [facility] Address: [address] [place] [address] Performed By: #### A LLBG ####[facility] LABCLIA [id number] [place] [id number] [place] Sodium [Moles/Vol] 124 mmol/L Low 136-144 [facility] Comment on above: Order Comment: Speci men Type: ARTERIAL BLOOD SPECIMENOrdering Facility: [facility] Address: [address] [place] [address] Performed By: #### A LLBG ####[facility] LABCLIA [id number] [address] [place] [address] [place] Bacteria Ur Culton Bacteria identified Cx Nom (U) Normal [facility] Comment on above: Performed By: #### 6 30-4, 03348-2 ####[facility] LABCLIA [id number] [address], [facility] [place] Basic metabolic 2000 panelon 11-12-2024 Anion gap [Moles/Vol] 11 mmol/L Normal 8-15 [facility] Comment on above: Order Comment: Speci men Type: BLOOD SPECIMENOrdering Facility: [facility] Address: [address] [place] [address] Performed By: #### 2 4321-2, 44660-0, 2776- ####[facility] LABCLIA [id number] [place] [address] [place] Calcium [Mass/Vol] 9.2 mg/dL Normal 8.5-10.2 [facility] Comment on above: Order Comment: Speci men Type: BLOOD SPECIMENOrdering Facility: [facility] Address: [address] [place] [address] Performed By: #### 2 4321-2, 18933-7, 2776- ####[facility] LABCLIA [id number] [place] [id number] [place] Chloride [Moles/Vol] 99 mmol/L Normal 98-107 [facility] Comment on above: Order Comment: Speci men Type: BLOOD SPECIMENOrdering Facility: [facility] Address: [address] [place] [address] Performed By: #### 2 4321-2, 64573-5, 2776-1 ####[facility] LABCLIA [id number] [address] [address] [place] CO2 [Moles/Vol] 14 mmol/L Low 22-30 [facility] Comment on above: Order Comment: Speci men Type: BLOOD SPECIMENOrdering Facility: [facility] Address: [address] [place] [address] Performed By: #### 2 4321-2, 73778-6, 2776- ####[facility] LABCLIA [id number] [place] [id number] [place] Creatinine [Mass/Vol] 1.22 mg/dL Normal 0.73-1.22 [facility] Comment on above: Order Comment: Speci men Type: BLOOD SPECIMENOrdering Facility: [facility] Address: [address] [place] [address] Performed By: #### 2 4321-2, 35790-0, 2776-08 ####[facility] LABCLIA [id number] [place] [address] [place] Creatinine and Glomerular filtration rate.predicted panel (S/P/Bld) 69 mL/min/1.73m??? Normal >=60 [facility] Comment on above: Order Comment: Ezekiel ramirez Type: BLOOD SPECIMENOrdering Facility: [facility] Address: [address] [place] [address] Result Comment: Patric mated Glomerular Filtration Rate [...] actual GFR. Performed By: #### 2 4321-2, 98566-5, 2776-08 ####[facility] LABCLIA [id number] [place] [id number] [place] Glucose [Mass/Vol] 304 mg/dL High 74-99 [facility] Comment on above: Order Comment: Speci men Type: BLOOD SPECIMENOrdering Facility: [facility] Address: [address] [place] [address] Result Comment: The [place] [employer] (ADA) provides guidance for cutoff [...] Standards of Medical Care in Diabetes 2016, [place] [employer]. Diabetes Care. 2016.39(Suppl 1). Performed By: #### 2 4321-2, 14325-6, 2776- ####[facility] LABCLIA [id number] [place] [address] [place] Potassium [Moles/Vol] 4.3 mmol/L Normal 3.7-5.1 [facility] Comment on above: Order Comment: Speci men Type: BLOOD SPECIMENOrdering Facility: [facility] Address: [address] [place] [address] Performed By: #### 2 4321-2, 22491-9, 2776-08 ####[facility] LABCLIA [id number] [place] [address] [place] Sodium [Moles/Vol] 124 mmol/L Low 136-144 [facility] Comment on above: Order Comment: Speci men Type: BLOOD SPECIMENOrdering Facility: [facility] Address: [address] [place] [address] Performed By: #### 2 4321-2, 00267-5, 2776-08 ####[facility] LABCLIA [id number] [place] [id number] [place] Urea nitrogen [Mass/Vol] 22 mg/dL Normal 9-24 [facility] Comment on above: Order Comment: Speci men Type: BLOOD SPECIMENOrdering Facility: [facility] Address: [address] [place] [address] Performed By: #### 2 4321-2, 59304-5, 2777-1 ####[facility] LABCLIA [id number] [place] [address] [place] CASE MGT INIT ASSESon 2024 CASE MGT INIT ASSES Normal [facility] CBC panel Auto (Bld)on 11-12 Erythrocyte distribution width (RBC) [Ratio] 16.9 % High 11.5-15.0 [facility] Comment on above: Order Comment: Speci men Type: BLOOD SPECIMENOrdering Facility: [facility] Address: [address] [place] [address] Performed By: #### 5 8410-2 ####[facility] LABCLIA [id number] [place] [address] [place] Hematocrit (Bld) [Volume fraction] 21.7 % Low 39.0-51.0 [facility] Comment on above: Order Comment: Speci men Type: BLOOD SPECIMENOrdering Facility: [facility] Address: [address] [place] [address] Performed By: #### 5 8410-2 ####[facility] LABCLIA [id number] [place] [address] [place] Hemoglobin (Bld) [Mass/Vol] 7.5 g/dL Low 13.0-17.0 [facility] Comment on above: Order Comment: Speci men Type: BLOOD SPECIMENOrdering Facility: [facility] Address: [address] [place] [address] Performed By: #### 5 8410-2 ####[facility] LABCLIA [id number] [place] [id number] [place] MCH (RBC) [Entitic mass] 31.5 pg Normal 26.0-34.0 [facility] Comment on above: Order Comment: Speci men Type: BLOOD SPECIMENOrdering Facility: [facility] Address: [address] [place] [address] Performed By: #### 5 8410-2 ####[facility] LABIA [id number] [place] [address] [place] MCHC (RBC) [Mass/Vol] 34.6 g/dL Normal 30.5-36.0 [facility] Comment on above: Order Comment: Speci men Type: BLOOD SPECIMENOrdering Facility: [facility] Address: [address] [place] [address] Performed By: #### 5 8410-2 ####[facility] LABIA [id number] [place] [address] [place] MCV (RBC) [Entitic vol] 91.2 fL Normal 80.0-100.0 [facility] Comment on above: Order Comment: Speci men Type: BLOOD SPECIMENOrdering Facility: [facility] Address: [address] [place] [address] Performed By: #### 5 8410-2 ####[facility] LABIA [id number] [place] [address] [place] Nucleated RBC (Bld) [#/Vol] 10*3/uL Normal <0.01 [facility] Comment on above: Order Comment: Speci men Type: BLOOD SPECIMENOrdering Facility: [facility] Address: [address] [place] [address] Performed By: #### 5 8410-2 ####[facility] LABIA [id number] [place] [address] [place] Platelet mean volume (Bld) [Entitic vol] 10.8 fL Normal 9.0-12.7 [facility] Comment on above: Order Comment: Speci men Type: BLOOD SPECIMENOrdering Facility: [facility] Address: [address] [place] [address] Performed By: #### 5 8410-2 ####[facility] LABCLIA [id number] [place] [address] [place] Platelets (Bld) [#/Vol] 31 10*3/uL Low 150-400 [facility] Comment on above: Order Comment: Speci men Type: BLOOD SPECIMENOrdering Facility: [facility] Address: [address] [place] [address] Result Comment: Resu lts checked and verified.No clot detected. Performed By: #### 5 8410-2 ####[facility] LABCLIA [id number] [place] [address] [place] RBC (Bld) [#/Vol] 2.38 10*6/uL Low 4.20-6.00 [facility] Comment on above: Order Comment: Speci men Type: BLOOD SPECIMENOrdering Facility: [facility] Address: [address] [place] [address] Performed By: #### 5 8410-2 ####[facility] LABIA [id number] [place] [address] [place] WBC (Bld) [#/Vol] 6.35 10*3/uL Normal 3.70-11.00 [facility] Comment on above: Order Comment: Speci men Type: BLOOD SPECIMENOrdering Facility: [facility] Address: [address] [place] [address] Performed By: #### 5 8410-2 ####[facility] LABCLIA [id number] [place] [address] [place] Erythrocyte distribution width (RBC) [Ratio] 17.3 % High 11.5-15.0 [facility] Comment on above: Order Comment: Speci men Type: BLOOD SPECIMENOrdering Facility: [facility] Address: [address] [place] [address] Performed By: #### 5 8410-2 ####[facility] LABCLIA [id number] [place] [address] [place] Hematocrit (Bld) [Volume fraction] 22.9 % Low 39.0-51.0 [facility] Comment on above: Order Comment: Speci men Type: BLOOD SPECIMENOrdering Facility: [facility] Address: [address] [place] [address] Performed By: #### 5 8410-2 ####[facility] [id number] [place] [address] [place] Hemoglobin (Bld) [Mass/Vol] 7.9 g/dL Low 13.0-17.0 [facility] Comment on above: Order Comment: Speci men Type: BLOOD SPECIMENOrdering Facility: [facility] Address: [address] [place] [address] Performed By: #### 5 8410-2 ####[facility] [id number] [place] [address] [place] MCH (RBC) [Entitic mass] 31.5 pg Normal 26.0-34.0 [facility] Comment on above: Order Comment: Speci men Type: BLOOD SPECIMENOrdering Facility: [facility] Address: [address] [place] [address] Performed By: #### 5 8410-2 ####[facility] [id number] [place] [address] [place] MCHC (RBC) [Mass/Vol] 34.5 g/dL Normal 30.5-36.0 [facility] Comment on above: Order Comment: Speci men Type: BLOOD SPECIMENOrdering Facility: [facility] Address: [address] [place] [address] Performed By: #### 5 8410-2 ####[facility] [id number] [place] [address] [place] MCV (RBC) [Entitic vol] 91.2 fL Normal 80.0-100.0 [facility] Comment on above: Order Comment: Speci men Type: BLOOD SPECIMENOrdering Facility: [facility] Address: [address] [place] [address] Performed By: #### 5 8410-2 ####[facility] LABCLIA [id number] [place] [address] [place] Nucleated RBC (Bld) [#/Vol] 10*3/uL Normal <0.01 [facility] Comment on above: Order Comment: Speci men Type: BLOOD SPECIMENOrdering Facility: [facility] Address: [address] [place] [address] Performed By: #### 5 8410-2 ####[facility] LABIA [id number] [place] [address] [place] Platelet mean volume (Bld) [Entitic vol] 11.6 fL Normal 9.0-12.7 [facility] Comment on above: Order Comment: Speci men Type: BLOOD SPECIMENOrdering Facility: [facility] Address: [address] [place] [address] Performed By: #### 5 8410-2 ####[facility] LABIA [id number] [place] [address] [place] Platelets (Bld) [#/Vol] 33 10*3/uL Low 150-400 [facility] Comment on above: Order Comment: Speci men Type: BLOOD SPECIMENOrdering Facility: [facility] Address: [address] [place] [address] Result Comment: Resu lts checked and verified.No clot detected. Performed By: #### 5 8410-2 ####[facility] LABIA [id number] [place] [address] [place] RBC (Bld) [#/Vol] 2.51 10*6/uL Low 4.20-6.00 [facility] Comment on above: Order Comment: Speci men Type: BLOOD SPECIMENOrdering Facility: [facility] Address: [address] [place] [address] Performed By: #### 5 8410-2 ####[facility] LABCLIA [id number] [place] [address] [place] WBC (Bld) [#/Vol] 7.27 10*3/uL Normal 3.70-11.00 [facility] Comment on above: Order Comment: Speci men Type: BLOOD SPECIMENOrdering Facility: [facility] Address: [address] [place] [address] Performed By: #### 5 8410-2 ####[facility] LABIA [id number] [place] [address] [place] CITRATED PLATELET COUNTon CITRATED PLATELET COUNT (WAM) 33 k/uL Low 150-400 [facility] Comment on above: Order Comment: Speci men Type: BLOOD SPECIMENOrdering Facility: [facility] Address: [address] [place] [address] Result Comment: Plat elet count confirmed by manual review of peripheral blood smear. No clot detected. Performed By: #### C ITPLT ####[facility] LABIA [id number] [place] [address] [place] CNCNPATEDon 11-12-2024 CNCNPATED Normal [facility] CNPNon 11-12-2024 CNPN Normal [facility] CONFIRM BLOOD TYPEon 025 ABO O Normal [facility] Comment on above: Order Comment: Speci men Type: BLOOD SPECIMENOrdering Facility: [facility] Address: [address] [place] [address] Performed By: #### C ONABO ####[facility] BLOOD BANKCLIA [id number] [place] [address] [place] Rh Nom (Bld) Positive Normal [facility] Comment on above: Order Comment: Speci men Type: BLOOD SPECIMENOrdering Facility: [facility] Address: [address] [place] [address] Performed By: #### C ONAB ####[facility] BLOOD [facility] [id number] [place] [address] [place] CONSULTon 11-12-2024 CONSULT Normal [facility] CONSULT Normal [facility] CONSULT Normal [facility] CONSULT Normal [facility] CONSULT Normal [facility] CONSULT Normal [facility] CT CHEST WO IVCONon 11-13-19 CT CHEST WO IVCON Normal [facility] D dimer FEU PPP-mCncon 11-12 Fibrin D-dimer FEU (PPP) [Mass/Vol] 3850 ng/mL FEU High <500 [facility] Comment on above: Order Comment: Speci men Type: BLOOD SPECIMENOrdering Facility: [facility] Address: [address] [place] [address] Performed By: #### 4 8065-7 ####[facility] LABIA [id number] [place] [address] [place] ECHO WITH AGITATED SALINE CO NTRASTon 11-12-2024 ECHO WITH AGITATED SALINE CONTRAST Normal [facility] Fibrin D-dimer FEU (PPP) [Ma ss/Vol]on 11-12-2024 D DIMER AGE-RELATED CUTOFF 580 ng/mL FEU Normal [facility] Comment on above: Order Comment: Speci men Type: BLOOD SPECIMENOrdering Facility: [facility] Address: [address] [place] [address] Performed By: #### 4 8065-7 ####[facility] LABIA [id number] [place] [address] [place] Hepatic function 2000 panelo n 11-12-2024 Albumin [Mass/Vol] 3.0 g/dL Low 3.9-4.9 [facility] Comment on above: Order Comment: Speci men Type: BLOOD SPECIMENOrdering Facility: [facility] Address: [address] [place] [address] Performed By: #### 2 4321-2, 62745-2, 2776- ####[facility] LABCLIA [id number] [address] [address] [place] ALP [Catalytic activity/Vol] 252 U/L High 38-113 [facility] Comment on above: Order Comment: Speci men Type: BLOOD SPECIMENOrdering Facility: [facility] Address: [address] [place], [place] [address] Performed By: #### 2 4321-2, 83231-3, 2776- ####[facility] LABCLIA [id number] [place] [id number] [place] ALT [Catalytic activity/Vol] 24 U/L Normal 10-54 [facility] Comment on above: Order Comment: Speci men Type: BLOOD SPECIMENOrdering Facility: [facility] Address: [address] [place], [place] [address] Performed By: #### 2 4321-2, 62289-1, 2776-08 ####[facility] LABIA [id number] [place] [address] [place] AST [Catalytic activity/Vol] 41 U/L High 14-40 [facility] Comment on above: Order Comment: Speci men Type: BLOOD SPECIMENOrdering Facility: [facility] Address: [address] [place] [address] Performed By: #### 2 4321-2, 06329-6, 2776- ####[facility] LABIA [id number] [address] [address] [place] Bilirubin [Mass/Vol] 1.8 mg/dL High 0.2-1.3 [facility] Comment on above: Order Comment: Speci men Type: BLOOD SPECIMENOrdering Facility: [facility] Address: [address] [place], [place] [address] Performed By: #### 2 4321-2, 42535-9, 2776-08 ####[facility] LABCLIA [id number] [address] [address] [place] Bilirubin.conjugated [Mass/Vol] 0.9 mg/dL High <0.3 [facility] Comment on above: Order Comment: Speci men Type: BLOOD SPECIMENOrdering Facility: [facility] Address: [address] [place] [address] Result Comment: Resu lts may be falsely decreased due to interference from hemolysis. Suggest reorder as clinically indicated. Performed By: #### 2 4321-2, 20892-4, 2776- ####[facility] LABCLIA [id number] [place] [address] [place] Protein [Mass/Vol] 5.5 g/dL Low 6.3-8.0 [facility] Comment on above: Order Comment: Speci men Type: BLOOD SPECIMENOrdering Facility: [facility] Address: [address] [place] [address] Performed By: #### 2 4321-2, 04283-5, 2776- ####[facility] LABCLIA [id number] [place] [address] [place] MEDICAL EMERon 11-12-2024 MEDICAL KRISTINA Normal [facility] NURSING PROGon 11-12-2024 NURSING PROG Normal [facility] NURSING PROG Normal [facility] NURSING PROG Normal [facility] NURSING PROG Normal [facility] NUTRITIONon 11-12-2024 NUTRITION Normal [facility] PTT, ANTICOAGULANT THERAPYon 11-12-2024 aPTT Coag (PPP) [Time] 62.6 s High 23.0-32.4 [facility] Comment on above: Order Comment: Speci men Type: BLOOD SPECIMENOrdering Facility: [facility] Address: [address] [place] [address] Performed By: #### P TTAC ####[facility] LABIA [id number] [place] [address] [place] Phosphate SerPl-mCncon 11-12 Phosphate [Mass/Vol] 2.3 mg/dL Low 2.7-4.8 [facility] Comment on above: Order Comment: Speci men Type: BLOOD SPECIMENOrdering Facility: [facility] Address: [address] [place] [address] Performed By: #### 2 4321-2, 37153-8, 2777-1 ####[facility] LABIA [id number] [place] [address] [place] SOCIAL WORKon 11-12-2024 SOCIAL WORK Normal [facility] THERAPY NTon 11-12-2024 THERAPY NT Normal [facility] THERAPY NT Normal [facility] THROMBOGRAPH PANELon 025 Clot angle TEG (Bld) [Angle] 32.8 degrees Low 47.0-74.0 [facility] Comment on above: Order Comment: Speci men Type: BLOOD SPECIMENOrdering Facility: [facility] Address: [address] [place] [address] Performed By: #### T EGPNP ####[facility] [id number] [address] STATES [facility] Clot Lysis 30 Min post maximum clot amplitude TEG (Bld) [Length fraction] 0.0 % Normal 0.0-8.0 [facility] Comment on above: Order Comment: Speci men Type: BLOOD SPECIMENOrdering Facility: [facility] Address: [address] [place] [address] Performed By: #### T EGPNP ####[facility] LABIA [id number] [address] [place] Clotting time TEG (Bld) 5.0 minutes Normal 4.0-10.0 [facility] Comment on above: Order Comment: Speci men Type: BLOOD SPECIMENOrdering Facility: [facility] Address: [address] [place] [address] Performed By: #### T EGPNP ####[facility] LABCLIA [id number] [place] [address] [place] Coagulation index TEG Qn (Bld) -8.4 Low -4.6-3.2 [facility] Comment on above: Order Comment: Ezekiel ramirez Type: BLOOD SPECIMENOrdering Facility: [facility] Address: [address] [place] [address] Result Comment: This test was developed, and its performance characteristics determined by the [facility] Department of Pathology and Laboratory Medicine. It has not been cleared or approved by the FDA. The [facility] Department of Pathology and Laboratory Medicine is regulated under CLIA as qualified to perform high-complexity testing. This test is used for clinical purposes. It should not be regarded as investigational or for research. Performed By: #### T EGPNP ####[facility] LABCLIA [id number] [place] [address] [place] Maximum clot firmness TEG (Bld) [Length] 28.5 mm Low 51.0-75.0 [facility] Comment on above: Order Comment: Ezekiel ramirez Type: BLOOD SPECIMENOrdering Facility: [facility] Address: [address] [place] [address] Performed By: #### T EGPNP ####[facility] LABCLIA [id number] [place] [address] [place] Thromboelastography after addtion of heparinase panel (Bld) Normal [facility] Comment on above: Order Comment: Ezekiel ramirez Type: BLOOD SPECIMENOrdering Facility: [facility] Address: [address] [place] [address] Result Comment: A th romboelastograph (TEG) study [...] timely manner. Performed By: #### T EGPNP ####[facility] LABCLIA [id number] [place] [address] [place] [facility] [place] TOXICOLOGY SCREEN, ROUTINE U RINEon 11-12-2024 Amphetamines Confirm (U) [Mass/Vol] Negative Normal Negative [facility] Comment on above: Order Comment: Speci men Type: URINE SPECIMENOrdering Facility: [facility] Address: [address] [place] [address] Result Comment: Cuto ff threshold at 1000 ng/mL. Performed By: #### U TOX2 ####[facility] LABCLIA [id number] [place] [address] [place] BARBITURATES, URINE Negative Normal Negative [facility] Comment on above: Order Comment: Speci men Type: URINE SPECIMENOrdering Facility: [facility] Address: [address] [place] [address] Result Comment: Cuto ff threshold at 200 ng/mL. Performed By: #### U TOX2 ####[facility] LABCLIA [id number] [place] [address] [place] BENZODIAZEPINES, UR Negative Normal Negative [facility] Comment on above: Order Comment: Speci men Type: URINE SPECIMENOrdering Facility: [facility] Address: [address] [place] [address] Result Comment: Cuto ff threshold at 200 ng/mL. Performed By: #### U TOX2 ####[facility] LABCLIA [id number] [place] [address] [place] Cannabinoids Screen Ql (U) Negative Normal Negative [facility] Comment on above: Order Comment: Speci men Type: URINE SPECIMENOrdering Facility: [facility] Address: [address] [place] [address] Result Comment: Cuto ff threshold at 50 ng/mL. Performed By: #### U TOX2 ####[facility] LABCLIA [id number] [place] [address] [place] Cocaine Ql (U) Negative Normal Negative [facility] Comment on above: Order Comment: Speci men Type: URINE SPECIMENOrdering Facility: [facility] Address: [address] [place] [address] Result Comment: Cuto ff threshold at 300 ng/mL. Performed By: #### U TOX2 ####[facility] LABCLIA [id number] [place] [address] [place] Ethanol (U) [Mass/Vol] <11 Normal <11 Cl [facility] Comment on above: Order Comment: Speci men Type: URINE SPECIMENOrdering Facility: [facility] Address: [address] [place] [address] Performed By: #### U TOX2 ####[facility] LABCLIA [id number] [place] [address] [place] Opiates Screen Ql (U) Negative Normal Negative [facility] Comment on above: Order Comment: Speci men Type: URINE SPECIMENOrdering Facility: [facility] Address: [address] [place] [address] Result Comment: Cuto ff threshold at 300 ng/mL. Performed By: #### U TOX2 ####[facility] LABCLIA [id number] [place] [address] [place] oxyCODONE cutoff Screen (U) [Mass/Vol] Positive Abnormal Negative [facility] Comment on above: Order Comment: Speci men Type: URINE SPECIMENOrdering Facility: [facility] Address: [address] [place] [address] Result Comment: Cuto ff threshold at 100 ng/mL. Performed By: #### U TOX2 ####[facility] LABCLIA [id number] [place] [address] [place] Phencyclidine Ql (U) Negative Normal Negative [facility] Comment on above: Order Comment: Speci men Type: URINE SPECIMENOrdering Facility: [facility] Address: [address] [place] [address] Result Comment: Cuto ff threshold at 25 ng/mL. Performed By: #### U TOX2 ####[facility] LABCLIA [id number] [address] [place] TYPE + SCREENon 11-12-2024 ABO O Normal [facility] Comment on above: Order Comment: Speci men Type: BLOOD SPECIMENOrdering Facility: [facility] Address: [address] [place] [address] Performed By: #### T SCR ####[facility] BLOOD BANKCLIA [id number] [place] [address] [place] Rh Nom (Bld) Positive Normal [facility] Comment on above: Order Comment: Speci men Type: BLOOD SPECIMENOrdering Facility: [facility] Address: [address] [place] [address] Performed By: #### T SCR ####[facility] BLOOD BANKCLIA [id number] [place] [address] [place] TYPE AND SCREEN EXPIRATION 11/15/2024 23:59 Normal [facility] Comment on above: Order Comment: Speci men Type: BLOOD SPECIMENOrdering Facility: [facility] Address: [address] [place] [address] Performed By: #### T SCR ####[facility] BLOOD BANKCLIA [id number] [place] [address] [place] Urinalysis complete panel (U )on 11-12-2024 BACTERIA UL 1553.2 uL High Negative [facility] Comment on above: Order Comment: Speci men Type: URINE SPECIMENOrdering Facility: [facility] Address: [address] [place] [address] Performed By: #### 6 30-4, 31621-1 ####[facility] LABCLIA [id number] [place] [address] [place] Bilirubin Ql (U) 1+ Abnormal Negative [facility] Comment on above: Order Comment: Speci men Type: URINE SPECIMENOrdering Facility: [facility] Address: [address] [place] [address] Result Comment: Sugg est correlation with clinical findings and serum bilirubin if clinically indicated. Performed By: #### 6 30-4, 86911-5 ####[facility] LABCLIA [id number] [place] [address] [place] Clarity (Unsp spec) Cloudy Abnormal Clear [facility] Comment on above: Order Comment: Speci men Type: URINE SPECIMENOrdering Facility: [facility] Address: [address] [place] [address] Performed By: #### 6 30-4, 50142-2 ####[facility] LABIA [id number] [place] [address] [place] Color (U) Marshall Abnormal Yellow [facility] Comment on above: Order Comment: Speci men Type: URINE SPECIMENOrdering Facility: [facility] Address: [address] [place] [address] Performed By: #### 6 30-4, 85015-8 ####[facility] LABCLIA [id number] [place] [id number] [place] Epithelial cells LM.HPF (Urine sed) [#/Area] None Seen Normal [facility] Comment on above: Order Comment: Speci men Type: URINE SPECIMENOrdering Facility: [facility] Address: [address] [place] [address] Performed By: #### 6 30-4, 48985-6 ####[facility] LABCLIA [id number] [address] [place] Glucose Test strip (U) [Mass/Vol] Negative Normal Negative [facility] Comment on above: Order Comment: Speci men Type: URINE SPECIMENOrdering Facility: [facility] Address: [address] [place] [address] Performed By: #### 6 30-4, 69757-8 ####[facility] LABCLIA [id number] [place] [address] [place] Hemoglobin Ql (U) 3+ Abnormal Negative [facility] Comment on above: Order Comment: Speci men Type: URINE SPECIMENOrdering Facility: [facility] Address: [address] [place] [address] Performed By: #### 6 30-4, 92395-5 ####[facility] LABCLIA [id number] [address] [place] Hyaline casts (Urine sed) [#/Area] 0 /[LPF] Normal 0 /LPF [facility] Comment on above: Order Comment: Speci men Type: URINE SPECIMENOrdering Facility: [facility] Address: [address] [place] [address] Performed By: #### 6 30-4, 98400-2 ####[facility] LABCLIA [id number] [place] [id number] [place] Ketones Ql (U) Negative Normal Negative [facility] Comment on above: Order Comment: Speci men Type: URINE SPECIMENOrdering Facility: [facility] Address: [address] [place] [address] Performed By: #### 6 30-4, 60349-2 ####[facility] LABCLIA [id number] [address], [place] [address] [place] Leukocyte esterase Test strip Ql (U) 2+ Abnormal Negative [facility] Comment on above: Order Comment: Speci men Type: URINE SPECIMENOrdering Facility: [facility] Address: [address] [place] [address] Performed By: #### 6 30-4, 92142-7 ####[facility] LABCLIA [id number] [address], [place] [address] [place] Nitrite Ql (U) Negative Normal Negative [facility] Comment on above: Order Comment: Speci men Type: URINE SPECIMENOrdering Facility: [facility] Address: [address] [place] [address] Performed By: #### 6 30-4, 02367-6 ####[facility] LABCLIA [id number] [address], [place] [address] [place] pH (U) 6.0 [pH] Normal <8.5 [facility] Comment on above: Order Comment: Speci men Type: URINE SPECIMENOrdering Facility: [facility] Address: [address] [place] [address] Performed By: #### 6 30-4, 97771-6 ####[facility] LABCLIA [id number] [address], [place] [address] [place] Protein (U) [Mass/Vol] 3+ Abnormal Negative Cl [facility] Comment on above: Order Comment: Speci men Type: URINE SPECIMENOrdering Facility: [facility] Address: [address] [place] [address] Performed By: #### 6 30-4, 95344-1 ####[facility] LABCLIA [id number] [place] [address] [place] RBC LM.HPF (Urine sed) [#/Area] /[HPF] Abnormal 0-2 /HPF [facility] Comment on above: Order Comment: Speci men Type: URINE SPECIMENOrdering Facility: [facility] Address: [address] [place] [address] Performed By: #### 6 30-4, 44290-5 ####[facility] [id number] [place] [address] [place] Specific gravity (U) [Rel density] 1.019 Normal 1.005-1.030 [facility] Comment on above: Order Comment: Speci men Type: URINE SPECIMENOrdering Facility: [facility] Address: [address] [place] [address] Performed By: #### 6 30-4, 94216-7 ####[facility] [id number] [place] [address] [place] Urobilinogen Ql (U) 0.2 EU/dL Normal 0.2-1.0 EU/dL [facility] Comment on above: Order Comment: Speci men Type: URINE SPECIMENOrdering Facility: [facility] Address: [address] [place] [address] Performed By: #### 6 30-4, 30571-1 ####[facility] [id number] [place] [address] [place] WBC LM.HPF (Urine sed) [#/Area] /[HPF] Abnormal 0-5 /HPF [facility] Comment on above: Order Comment: Speci men Type: URINE SPECIMENOrdering Facility: [facility] Address: [address] [place] [address] Performed By: #### 6 30-4, 45904-7 ####[facility] [id number] [place] [address] [place] ALLIED HEALTHon 11-11-2024 ALLIED HEALTH Normal [facility] ALLIED HEALTH Normal [facility] ANTI PLT FACTOR 4 ABon 11-11 Heparin induced platelet IgG Marco Antonio (S) [Interp] Negative Normal Negative [facility] Comment on above: Order Comment: Speci men Type: BLOOD SPECIMENOrdering Facility: [facility] Address: [facility] [place] [address] Result Comment: No a nti-platelet factor 4 IgG antibody is detected by ANDERS assay.Heparin-induced thrombocytopenia (HIT) is unlikely, but should be excluded based on clinical factors. Performed By: #### P LATF4 ####[facility] LABIA [id number] [place] [address] [place] Platelet factor 4 Qn (PPP) 0.184 OD Normal <0.400 [facility] Comment on above: Order Comment: Speci men Type: BLOOD SPECIMENOrdering Facility: [facility] Address: [address] [place] [address] Result Comment: Not calculated Performed By: #### P LATF4 ####[facility] [id number] [address] [place] Albumin Fld-[facility] 5 Albumin (Body fld) [Mass/Vol] <0.2 Normal See Comment [facility] Comment on above: Order Comment: Speci men Type: FLUID SPECIMENOrdering Facility: [facility] Address: [address] [place] [address] Result Comment: Body Fluid Albumin may be [...] document C49A. PAULETTE Diaz: Clinical Laboratory Standards Hooper: 2007.2. Amy JACKSON. Serum to ascites albumin gradient. UpToDate. 2015. Accessed on November 15, 2015.This test was developed, and its performance characteristics determined by the [facility] Department of Pathology and Laboratory Medicine. It has not been cleared or approved by the FDA. The [facility] Department of Pathology and Laboratory Medicine is regulated under CLIA as qualified to perform high-complexity testing. This test is used for clinical purposes. It should not be regarded as investigational or for research. Performed By: #### 1 747-5, 1795-4, 35713-3, 2881-1 ####[facility] LABCLIA [id number] [place] [id number] [place] Fluid Nom (Body fld) Abdomen Normal [facility] Comment on above: Order Comment: Speci men Type: FLUID SPECIMENOrdering Facility: [facility] Address: [address] [place] [address] Performed By: #### 1 747-5, 1795-4, 21910-9, 2881-1 ####[facility] LABCLIA [id number] [place] [id number] [place] Amylase Fld-cCncon 5 Amylase (Body fld) [Catalytic activity/Vol] 14 U/L Normal See Comment [facility] Comment on above: Order Comment: Speci men Type: FLUID SPECIMENOrdering Facility: [facility] Address: [address] [place] [address] Result Comment: PLEU RAL FLUIDS:Amylase measurement in [...] document C49-A. PAULETTE Diaz: Clinical Laboratory Standards Hooper; 2007.3. Kelby CONCEPCION, John BRAR, Star DJ. Use of cyst fluid CEA, CA19-9, and amylase for evaluation of pancreatic lesions. Clinical Biochemistry. 2009;42:3474-0102.This test was developed, and its performance characteristics determined by the [facility] Department of Pathology and Laboratory Medicine. It has not been cleared or approved by the FDA. The [facility] Department of Pathology and Laboratory Medicine is regulated under CLIA as qualified to perform high-complexity testing. This test is used for clinical purposes. It should not be regarded as investigational or for research. Performed By: #### 1 747-5, 1795-4, 90459-5, 2881-1 ####[facility] LABIA [id number] [place] [address] [place] Antithrombin Ag actual/philly l IA (PPP) [Relative mass conc]on 11-11-2024 Antithrombin Ag IA Qn (PPP) 32 % Low 80-120 [facility] Comment on above: Order Comment: Speci men Type: BLOOD SPECIMENOrdering Facility: [facility] Address: [address] [place] [address] Performed By: #### L [id number], HCOAG, 6303-2, 98005-5, 02703-9 ####[facility] LABIA [id number] [place] [address] [place] BODY FLUID CELL COUNTon 11-02 Clarity (Unsp spec) Clear Normal Clear [facility] Comment on above: Order Comment: Speci men Type: FLUID SPECIMENOrdering Facility: [facility] Address: [address] [place] [address] Performed By: #### Pastora CBF, [id number] ####[facility] LABIA [id number] [address] [place] Color (Body fld) Colorless Normal Yellow [facility] Comment on above: Order Comment: Speci men Type: FLUID SPECIMENOrdering Facility: [facility] Address: [address] [place] [address] Performed By: #### C CBF, [id number] ####[facility] LABCLIA [id number] [place] [address] [place] RBC Manual cnt (Body fld) [#/Vol] 2000 /uL High <2000 [facility] Comment on above: Order Comment: Speci men Type: FLUID SPECIMENOrdering Facility: [facility] Address: [address] [place] [address] Performed By: #### C CBF, [id number] ####[facility] LABCLIA [id number] [place] [address] [place] Specimen source Nom (Body fld) Abdomen Normal [facility] Comment on above: Order Comment: Speci men Type: FLUID SPECIMENOrdering Facility: [facility] Address: [address] [place] [address] Performed By: #### C CBF, [id number] ####[facility] LABCLIA [id number] [place] [address] [place] WBC Manual cnt (Body fld) [#/Vol] 70 /uL Normal <1000 [facility] Comment on above: Order Comment: Speci men Type: FLUID SPECIMENOrdering Facility: [facility] Address: [address] [place] [address] Performed By: #### C CBF, [id number] ####[facility] LABCLIA [id number] [place] [address] [place] Bacteria Bld Culton 11-12-19 25 Bacteria identified Cx Nom (Bld) CULTURE, BLOOD: No growth 5 days GRAM STAIN: This blood culture had less than the recommended 8 ml per bottle, which could decrease the sensitivity of the test. Normal [facility] Comment on above: Performed By: #### 6 00-7 ####[facility] LABCLIA [id number] [address] [address] [place] Bacteria identified Cx Nom (Bld) CULTURE, BLOOD: No growth 5 days Normal [facility] Comment on above: Performed By: #### 6 00-7 ####[facility] LABCLIA [id number] [address] [place] [address] [place] Bacteria Fld Culton 11-12-19 25 Bacteria identified Cx Nom (Body fld) CULTURE, BODY FLD: No growth GRAM STAIN: No organisms seen Many Polymorphonuclear leukocytes Gram stain performed on cytospun specimen. Gram stain from primary specimen Normal [facility] Comment on above: Performed By: #### 6 35-3, 611-4 ####[facility] LABIA [id number] [place] [id number] [place] Bacteria Spec Anaerobe Culto n 11-11-2024 Bacteria identified Anaer cx Nom (Unsp spec) Negative Normal [facility] Comment on above: Performed By: #### 6 35-3, 611-4 ####[facility] LABCLIA [id number] [address] [place] [address] [place] Basic metabolic 2000 panelon 11-11-2024 Anion gap [Moles/Vol] 12 mmol/L Normal 8-15 [facility] Comment on above: Order Comment: Speci men Type: BLOOD SPECIMENOrdering Facility: [facility] Address: [address] [place] [address] Performed By: #### 2 276-4, 68732-8, 38119-0, 12300-9, 2777-1, 23274-2 ####[facility] LABCLIA [id number] [address] [address] [place] Calcium [Mass/Vol] 9.1 mg/dL Normal 8.5-10.2 [facility] Comment on above: Order Comment: Speci men Type: BLOOD SPECIMENOrdering Facility: [facility] Address: [address] [place] [address] Performed By: #### 2 276-4, 49990-3, 22144-4, 66247-7, 2777-1, 01546-0 ####[facility] LABCLIA [id number] [place] [id number] [place] Chloride [Moles/Vol] 97 mmol/L Low 98-107 [facility] Comment on above: Order Comment: Speci men Type: BLOOD SPECIMENOrdering Facility: [facility] Address: [address] [place] [address] Performed By: #### 2 276-4, 23336-2, 52766-9, 73448-8, 2777-1, 18833-5 ####[facility] LABCLIA [id number] [place] [address] [place] CO2 [Moles/Vol] 14 mmol/L Low 22-30 [facility] Comment on above: Order Comment: Speci men Type: BLOOD SPECIMENOrdering Facility: [facility] Address: [address] [place] [address] Performed By: #### 2 276-4, 15081-9, 56697-8, 70051-7, 2777-1, 43209-5 ####[facility] LABCLIA [id number] [place] [address] [place] Creatinine [Mass/Vol] 1.35 mg/dL High 0.73-1.22 [facility] Comment on above: Order Comment: Speci men Type: BLOOD SPECIMENOrdering Facility: [facility] Address: [address] [place] [address] Performed By: #### 2 276-4, 60736-3, 55780-3, 87275-2, 2777-1, 53075-2 ####[facility] LABCLIA [id number] [address] [place] Creatinine and Glomerular filtration rate.predicted panel (S/P/Bld) 61 mL/min/1.73m??? Normal >=60 [facility] Comment on above: Order Comment: Ezekiel ramirez Type: BLOOD SPECIMENOrdering Facility: [facility] Address: [address] [place] [address] Result Comment: Patric mated Glomerular Filtration Rate [...] actual GFR. Performed By: #### 2 276-4, 18015-0, 59016-1, 98876-2, 2777-1, 49318-2 ####[facility] LABCLIA [id number] [place] [address] [place] Glucose [Mass/Vol] 292 mg/dL High 74-99 [facility] Comment on above: Order Comment: Ezekiel ramirez Type: BLOOD SPECIMENOrdering Facility: [facility] Address: [address] [place] [address] Result Comment: The [place] [employer] (ADA) provides guidance for cutoff [...] Standards of Medical Care in Diabetes 2016, [place] [employer]. Diabetes Care. 2016.39(Suppl 1). Performed By: #### 2 276-4, 91709-8, 58314-2, 44612-9, 2777-1, 35235-6 ####[facility] LABCLIA [id number] [address] [address] [place] Potassium [Moles/Vol] 3.6 mmol/L Low 3.7-5.1 [facility] Comment on above: Order Comment: Speci men Type: BLOOD SPECIMENOrdering Facility: [facility] Address: [address] [place] [address] Performed By: #### 2 276-4, 30748-0, 94439-5, 32561-1, 2777-1, 45770-4 ####[facility] LABCLIA [id number] [place] [id number] [place] Sodium [Moles/Vol] 123 mmol/L Low 136-144 [facility] Comment on above: Order Comment: Speci men Type: BLOOD SPECIMENOrdering Facility: [facility] Address: [address] [place] [address] Performed By: #### 2 276-4, 09612-2, 54417-6, 01422-5, 2777-1, 88559-0 ####[facility] LABIA [id number] [place] [id number] [place] Urea nitrogen [Mass/Vol] 22 mg/dL Normal 9-24 [facility] Comment on above: Order Comment: Speci men Type: BLOOD SPECIMENOrdering Facility: [facility] Address: [address] [place] [address] Performed By: #### 2 276-4, 90170-3, 37000-6, 81875-9, 2777-1, 27905-5 ####[facility] LABIA [id number] [place] [id number] [place] CARDIOLIPIN IGG ABSon 2024 Cardiolipin IgG IA Qn (S) <9.0 Normal <15.0 [facility] Comment on above: Order Comment: Speci men Type: BLOOD SPECIMENOrdering Facility: [facility] Address: [address] [place] [address] Result Comment: <15 GPL [id number] GPL Indeterminate>20 GPL PositiveThe following results were obtained with the [employer] QUANTA Lite TEZ IgG III ANDERS. Cardiolipin IgG values obtained with the different manufacturers' assay methods may not be used interchangeably. The magnitude of the reported IgG levels cannot be correlated to an endpoint titer. Performed By: #### 5 076-5KATHI CARDIM ####[facility] LABCLIA [id number] [place] [address] [place] CARDIOLIPIN IGM ABSon 2024 Cardiolipin IgM IA Qn (S) <9.0 Normal <12.5 [facility] Comment on above: Order Comment: Speci men Type: BLOOD SPECIMENOrdering Facility: [facility] Address: [address] [place] [address] Result Comment: <12. 5 MPL Gkpuanug87.5-20 MPL Indeterminate>20 MPL PositiveThe following results were obtained with the [employer] QUANTA Lite TEZ IgM III ANDERS. Cardiolipin IgM values obtained with the different manufacturers' assay methods may not be used interchangeably. The magnitude of the reported IgM levels cannot be correlated to an endpoint titer.??? Performed By: #### 5 076-5KATHI CARDIM ####[facility] LABCLIA [id number] [place] [address] [place] CASE MANAGEMon 11-11-2024 CASE MANAGEM Normal [facility] CBC W Auto Differential pane l (Bld)on 11-11-2024 Basophils (Bld) [#/Vol] 0.04 10*3/uL Normal <0.11 [facility] Comment on above: Order Comment: Speci men Type: BLOOD SPECIMENOrdering Facility: [facility] Address: [address] [place] [address] Performed By: #### I PFR, 46577-7, 13408-2 ####[facility] LABCLIA [id number] [place] [address] [place] Basophils/100 WBC (Bld) 0.4 % Normal C [facility] Comment on above: Order Comment: Speci men Type: BLOOD SPECIMENOrdering Facility: [facility] Address: [address] [place] [address] Performed By: #### I PFR, 49995-9, ####[facility] LABCLIA [id number] [facility] [place] [address] [place] Differential cell count method Nom (Bld) Auto Normal [facility] Comment on above: Order Comment: Speci men Type: BLOOD SPECIMENOrdering Facility: [facility] Address: [address] [place] [address] Performed By: #### I PFR, 69330-0, ####[facility] LABCLIA [id number] [place] [address] [place] Eosinophils (Bld) [#/Vol] 0.35 10*3/uL Normal <0.46 [facility] Comment on above: Order Comment: Speci men Type: BLOOD SPECIMENOrdering Facility: [facility] Address: [address] [place] [address] Performed By: #### I PFR, 99696-9, ####[facility] LABCLIA [id number] [place] [address] [place] Eosinophils/100 WBC (Bld) 3.4 % Normal [facility] Comment on above: Order Comment: Speci men Type: BLOOD SPECIMENOrdering Facility: [facility] Address: [address] [place] [address] Performed By: #### I PFR, 32907-1, ####[facility] LABCLIA [id number] [place] [id number] [place] Erythrocyte distribution width (RBC) [Ratio] 17.4 % High 11.5-15.0 [facility] Comment on above: Order Comment: Speci men Type: BLOOD SPECIMENOrdering Facility: [facility] Address: [address] [place] [address] Performed By: #### I PFR, 41226-1, 35046-9 ####[facility] LABCLIA [id number] [place] [address] [place] Hematocrit (Bld) [Volume fraction] 24.6 % Low 39.0-51.0 [facility] Comment on above: Order Comment: Speci men Type: BLOOD SPECIMENOrdering Facility: [facility] Address: [address] [place] [address] Performed By: #### I PFR, 08208-0, 45492-8 ####[facility] LABCLIA [id number] [place] [address] [place] Hemoglobin (Bld) [Mass/Vol] 8.4 g/dL Low 13.0-17.0 [facility] Comment on above: Order Comment: Speci men Type: BLOOD SPECIMENOrdering Facility: [facility] Address: [address] [place] [address] Performed By: #### I PFR, 37536-6, 27931-4 ####[facility] LABCLIA [id number] [place] [address] [place] Immature granulocytes (Bld) [#/Vol] 0.08 10*3/uL Normal <0.10 [facility] Comment on above: Order Comment: Speci men Type: BLOOD SPECIMENOrdering Facility: [facility] Address: [address] [place] [address] Performed By: #### I PFR, 34006-6, 59894-2 ####[facility] LABCLIA [id number] [place] [address] [place] Immature granulocytes/100 WBC (Bld) 0.8 % Normal [facility] Comment on above: Order Comment: Speci men Type: BLOOD SPECIMENOrdering Facility: [facility] Address: [address] [place], [place] [address] Performed By: #### I PFR, 85167-1, 85856-6 ####[facility] LABIA [id number] [place] [id number] [place] Lymphocytes (Bld) [#/Vol] 0.99 10*3/uL Low 1.00-4.00 [facility] Comment on above: Order Comment: Speci men Type: BLOOD SPECIMENOrdering Facility: [facility] Address: [address] [place] [address] Performed By: #### I PFR, 76318-5, 34399-7 ####[facility] LABIA [id number] [place] [address] [place] Lymphocytes/100 WBC (Bld) 9.5 % Normal [facility] Comment on above: Order Comment: Speci men Type: BLOOD SPECIMENOrdering Facility: [facility] Address: [address] [place] [address] Performed By: #### I PFR, 69439-5, 78789-1 ####[facility] LABIA [id number] [place] [address] [place] MCH (RBC) [Entitic mass] 31.9 pg Normal 26.0-34.0 [facility] Comment on above: Order Comment: Speci men Type: BLOOD SPECIMENOrdering Facility: [facility] Address: [address] [place] [address] Performed By: #### I PFR, 37236-3, 51669-9 ####[facility] LABIA [id number] [place] [id number] [place] MCHC (RBC) [Mass/Vol] 34.1 g/dL Normal 30.5-36.0 [facility] Comment on above: Order Comment: Speci men Type: BLOOD SPECIMENOrdering Facility: [facility] Address: [address] [place] [address] Performed By: #### I PFR, 68351-7, 66390-9 ####[facility] LABCLIA [id number] [address] [address] [place] MCV (RBC) [Entitic vol] 93.5 fL Normal 80.0-100.0 C [facility] Comment on above: Order Comment: Speci men Type: BLOOD SPECIMENOrdering Facility: [facility] Address: [address] [place] [address] Performed By: #### I PFR, 79515-2, ####[facility] LABCLIA [id number] [place] [address] [place] Monocytes (Bld) [#/Vol] 0.97 10*3/uL High <0.87 [facility] Comment on above: Order Comment: Speci men Type: BLOOD SPECIMENOrdering Facility: [facility] Address: [address] [place] [address] Performed By: #### I PFR, 22779-6, ####[facility] LABIA [id number] [place] [address] [place] Monocytes/100 WBC (Bld) 9.3 % Normal C [facility] Comment on above: Order Comment: Speci men Type: BLOOD SPECIMENOrdering Facility: [facility] Address: [address] [place] [address] Performed By: #### I PFR, 00051-3, 12772-9 ####[facility] LABCLIA [id number] [place] [id number] [place] Neutrophils (Bld) [#/Vol] 8.00 10*3/uL High 1.45-7.50 [facility] Comment on above: Order Comment: Speci men Type: BLOOD SPECIMENOrdering Facility: [facility] Address: [address] [place] [address] Performed By: #### I PFR, 83553-0, 43904-0 ####[facility] LABCLIA [id number] [address] [address] [place] Neutrophils/100 WBC (Bld) 76.6 % Normal [facility] Comment on above: Order Comment: Speci men Type: BLOOD SPECIMENOrdering Facility: [facility] Address: [address] [place] [address] Performed By: #### I PFR, 10057-5, 20291-6 ####[facility] LABCLIA [id number] [place] [address] [place] Nucleated RBC (Bld) [#/Vol] 10*3/uL Normal <0.01 [facility] Comment on above: Order Comment: Speci men Type: BLOOD SPECIMENOrdering Facility: [facility] Address: [address] [place] [address] Performed By: #### I PFR, 04331-2, 89053-1 ####[facility] LABIA [id number] [place] [address] [place] Nucleated RBC/100 WBC (Bld) [Ratio] 0.0 /100 WBC Normal [facility] Comment on above: Order Comment: Speci men Type: BLOOD SPECIMENOrdering Facility: [facility] Address: [address] [place] [address] Performed By: #### I PFR, 32979-9, 06587-1 ####[facility] LABIA [id number] [place] [address] [place] Platelet mean volume (Bld) [Entitic vol] 11.5 fL Normal 9.0-12.7 [facility] Comment on above: Order Comment: Speci men Type: BLOOD SPECIMENOrdering Facility: [facility] Address: [address] [place] [address] Performed By: #### I PFR, 90693-7, 83728-9 ####[facility] LABCLIA [id number] [place] [id number] [place] Platelets (Bld) [#/Vol] 43 10*3/uL Low 150-400 C [facility] Comment on above: Order Comment: Speci men Type: BLOOD SPECIMENOrdering Facility: [facility] Address: [address] [place] [address] Performed By: #### I PFR, 88978-7, 19294-2 ####[facility] LABCLIA [id number] [place] [address] [place] RBC (Bld) [#/Vol] 2.63 10*6/uL Low 4.20-6.00 [facility] Comment on above: Order Comment: Speci men Type: BLOOD SPECIMENOrdering Facility: [facility] Address: [address] [place] [address] Performed By: #### I PFR, 83300-9, 62370-9 ####[facility] LABIA [id number] [place] [address] [place] WBC (Bld) [#/Vol] 10.43 10*3/uL Normal 3.70-11.00 [facility] Comment on above: Order Comment: Speci men Type: BLOOD SPECIMENOrdering Facility: [facility] Address: [address] [place] [address] Performed By: #### I PFR, 92051-6, 03211-4 ####[facility] LABCLIA [id number] [place] [address] [place] Basophils (Bld) [#/Vol] 0.06 10*3/uL Normal <0.11 [facility] Comment on above: Order Comment: Speci men Type: BLOOD SPECIMENOrdering Facility: [facility] Address: [address] [place] [address] Performed By: #### 5 5454-3, 69186-1 ####[facility] LABCLIA [id number] [address] [place] [address] [place] Basophils/100 WBC (Bld) 0.4 % Normal [facility] Comment on above: Order Comment: Speci men Type: BLOOD SPECIMENOrdering Facility: [facility] Address: [address] [place] [address] Performed By: #### 5 5454-3, 16035-3 ####[facility] LABCLIA [id number] [place] [address] [place] Differential cell count method Nom (Bld) Auto Normal [facility] Comment on above: Order Comment: Speci men Type: BLOOD SPECIMENOrdering Facility: [facility] Address: [address] [place] [address] Performed By: #### 5 5454-3, 13514-2 ####[facility] LABCLIA [id number] [place] [address] [place] Eosinophils (Bld) [#/Vol] 0.40 10*3/uL Normal <0.46 [facility] Comment on above: Order Comment: Speci men Type: BLOOD SPECIMENOrdering Facility: [facility] Address: [address] [place] [address] Performed By: #### 5 5454-3, 44319-4 ####[facility] LABCLIA [id number] [place] [address] [place] Eosinophils/100 WBC (Bld) 2.5 % Normal [facility] Comment on above: Order Comment: Speci men Type: BLOOD SPECIMENOrdering Facility: [facility] Address: [address] [place] [address] Performed By: #### 5 5454-3, 98709-9 ####[facility] LABCLIA [id number] [place] [address] [place] Erythrocyte distribution width (RBC) [Ratio] 18.0 % High 11.5-15.0 [facility] Comment on above: Order Comment: Speci men Type: BLOOD SPECIMENOrdering Facility: [facility] Address: [address] [place] [address] Performed By: #### 5 5454-3, 92452-6 ####[facility] LABIA [id number] [place] [address] [place] Hematocrit (Bld) [Volume fraction] 30.4 % Low 39.0-51.0 [facility] Comment on above: Order Comment: Speci men Type: BLOOD SPECIMENOrdering Facility: [facility] Address: [address] [place] [address] Performed By: #### 5 5454-3, 40914-9 ####[facility] [id number] [place] [address] [place] Hemoglobin (Bld) [Mass/Vol] 10.2 g/dL Low 13.0-17.0 [facility] Comment on above: Order Comment: Speci men Type: BLOOD SPECIMENOrdering Facility: [facility] Address: [address] [place] [address] Performed By: #### 5 5454-3, 25041-5 ####[facility] [id number] [place] [address] [place] Immature granulocytes (Bld) [#/Vol] 0.18 10*3/uL High <0.10 [facility] Comment on above: Order Comment: Speci men Type: BLOOD SPECIMENOrdering Facility: [facility] Address: [address] [place] [address] Performed By: #### 5 5454-3, 41056-1 ####[facility] LABIA [id number] [place] [address] [place] Immature granulocytes/100 WBC (Bld) 1.1 % Normal [facility] Comment on above: Order Comment: Speci men Type: BLOOD SPECIMENOrdering Facility: [facility] Address: [address] [place] [address] Performed By: #### 5 5454-3, 86328-5 ####[facility] LABCLIA [id number] [place] [address] [place] Lymphocytes (Bld) [#/Vol] 1.19 10*3/uL Normal 1.00-4.00 [facility] Comment on above: Order Comment: Speci men Type: BLOOD SPECIMENOrdering Facility: [facility] Address: [address] [place] [address] Performed By: #### 5 5454-3, 60318-4 ####[facility] LABIA [id number] [place] [address] [place] Lymphocytes/100 WBC (Bld) 7.6 % Normal [facility] Comment on above: Order Comment: Speci men Type: BLOOD SPECIMENOrdering Facility: [facility] Address: [address] [place] [address] Performed By: #### 5 5454-3, 56001-5 ####[facility] LABIA [id number] [place] [address] [place] MCH (RBC) [Entitic mass] 31.3 pg Normal 26.0-34.0 [facility] Comment on above: Order Comment: Speci men Type: BLOOD SPECIMENOrdering Facility: [facility] Address: [address] [place] [address] Performed By: #### 5 5454-3, 70863-5 ####[facility] LABCLIA [id number] [place] [id number] [place] MCHC (RBC) [Mass/Vol] 33.6 g/dL Normal 30.5-36.0 [facility] Comment on above: Order Comment: Speci men Type: BLOOD SPECIMENOrdering Facility: [facility] Address: [address] [place] [address] Performed By: #### 5 5454-3, 62813-0 ####[facility] LABCLIA [id number] [address] [place] [address] [place] MCV (RBC) [Entitic vol] 93.3 fL Normal 80.0-100.0 [facility] Comment on above: Order Comment: Speci men Type: BLOOD SPECIMENOrdering Facility: [facility] Address: [address] [place] [address] Performed By: #### 5 5454-3, 63083-9 ####[facility] LABCLIA [id number] [place] [address] [place] Monocytes (Bld) [#/Vol] 1.36 10*3/uL High <0.87 [facility] Comment on above: Order Comment: Speci men Type: BLOOD SPECIMENOrdering Facility: [facility] Address: [address] [place] [address] Performed By: #### 5 5454-3, 56499-3 ####[facility] LABCLIA [id number] [place] [address] [place] Monocytes/100 WBC (Bld) 8.6 % Normal [facility] Comment on above: Order Comment: Speci men Type: BLOOD SPECIMENOrdering Facility: [facility] Address: [address] [place] [address] Performed By: #### 5 5454-3, 07432-5 ####[facility] LABCLIA [id number] [place] [address] [place] Neutrophils (Bld) [#/Vol] 12.55 10*3/uL High 1.45-7.50 [facility] Comment on above: Order Comment: Speci men Type: BLOOD SPECIMENOrdering Facility: [facility] Address: [address] [place] [address] Performed By: #### 5 5454-3, 94173-4 ####[facility] LABCLIA [id number] [place] [id number] [place] Neutrophils/100 WBC (Bld) 79.8 % Normal [facility] Comment on above: Order Comment: Speci men Type: BLOOD SPECIMENOrdering Facility: [facility] Address: [address] [place] [address] Performed By: #### 5 5454-3, 06311-5 ####[facility] LABCLIA [id number] [place] [address] [place] Nucleated RBC (Bld) [#/Vol] 10*3/uL Normal <0.01 [facility] Comment on above: Order Comment: Speci men Type: BLOOD SPECIMENOrdering Facility: [facility] Address: [address] [place] [address] Performed By: #### 5 5454-3, 23015-1 ####[facility] LABIA [id number] [place] [address] [place] Nucleated RBC/100 WBC (Bld) [Ratio] 0.0 /100 WBC Normal [facility] Comment on above: Order Comment: Speci men Type: BLOOD SPECIMENOrdering Facility: [facility] Address: [address] [place] [address] Performed By: #### 5 5454-3, 67538-6 ####[facility] LABIA [id number] [place] [address] [place] Platelet mean volume (Bld) [Entitic vol] 12.1 fL Normal 9.0-12.7 [facility] Comment on above: Order Comment: Speci men Type: BLOOD SPECIMENOrdering Facility: [facility] Address: [address] [place] [address] Performed By: #### 5 5454-3, 06370-4 ####[facility] LABIA [id number] [place] [address] [place] Platelets (Bld) [#/Vol] 52 10*3/uL Low 150-400 [facility] Comment on above: Order Comment: Speci men Type: BLOOD SPECIMENOrdering Facility: [facility] Address: [address] [place] [address] Result Comment: Resu lts checked and verified.No clot detected. Performed By: #### 5 5454-3, 22640-1 ####[facility] LABCLIA [id number] [place] [address] [place] RBC (Bld) [#/Vol] 3.26 10*6/uL Low 4.20-6.00 [facility] Comment on above: Order Comment: Speci men Type: BLOOD SPECIMENOrdering Facility: [facility] Address: [address] [place] [address] Performed By: #### 5 5454-3, 28043-8 ####[facility] LABCLIA [id number] [place] [address] [place] WBC (Bld) [#/Vol] 15.74 10*3/uL High 3.70-11.00 [facility] Comment on above: Order Comment: Speci men Type: BLOOD SPECIMENOrdering Facility: [facility] Address: [address] [place] [address] Performed By: #### 5 5454-3, 38853-2 ####[facility] LABIA [id number] [place] [address] [place] CEA SerPl-mCncon 11-11-2024 Carcinoembryonic Ag [Mass/Vol] 13.0 ng/mL High <=2.9 [facility] Comment on above: Order Comment: Speci men Type: BLOOD SPECIMENOrdering Facility: [facility] Address: [address] [place] [address] Result Comment: Carc inoembryonic antigen test is used as an aid in monitoring response to treatment or recurrence in patients with established colorectal, breast, lung, prostatic, pancreatic, and ovarian carcinomas. Clinical correlation is required.The Carcinoembryonic antigen test was performed using the [employer] Unicel DXI paramagnetic particle chemiluminescent immunoassay method. Results obtained with different assay methods or kits cannot be used interchangeably. Performed By: #### 2 039-6, 49919-0, 2532-0 ####[facility] LABIA [id number] [place] [address] [place] COAG CORE PANEL BLDon 2024 aPTT Coag (PPP) [Time] 41.3 s High 23.0-32.4 [facility] Comment on above: Order Comment: Ezekiel ramirez Type: BLOOD SPECIMENOrdering Facility: [facility] Address: [address] [place] [address] Performed By: #### C ORPNL ####[facility] LABIA [id number] [place] [address] [place] Fibrinogen Coag (PPP) [Mass/Vol] 88 mg/dL Low 200-400 [facility] Comment on above: Order Comment: Ezekiel ramirez Type: BLOOD SPECIMENOrdering Facility: [facility] Address: [address] [place] [address] Result Comment: [facility] checked for clot.Result rechecked. Performed By: #### C ORPNL ####[facility] [id number] [address] STATES OF [facility] INR Coag (PPP) [Relative time] 2.1 {INR} High 0.9-1.3 [facility] Comment on above: Order Comment: Ezekiel ramirez Type: BLOOD SPECIMENOrdering Facility: [facility] Address: [address] [place] [address] Result Comment: Sarah min K Antagonist (VKA) Therapeutic Range: INR 2 to 3 (Target INR of 2.5)Note: For patients treated with VKA drugs, such as warfarin, the [place] [employer] 2012 Guideline recommends [...] al. Chest 2012, 141:7S-47SNishimura RA, et al. [facility] 2017, 70: 252-289 Performed By: #### C ORPNL ####[facility] LABIA [id number] [place] [address] [place] PT Coag (PPP) [Time] 21.8 s High 9.7-13.0 [facility] Comment on above: Order Comment: Speci men Type: BLOOD SPECIMENOrdering Facility: [facility] Address: [address] [place] [address] Performed By: #### C ORPNL ####[facility] [id number] [place] [address] [place] CONSULTon 11-11-2024 CONSULT Normal [facility] CONSULT Normal [facility] CRP SerPl-mCncon 11-11-2024 CRP [Mass/Vol] 0.5 mg/dL Normal <0.9 [facility] Comment on above: Order Comment: Speci men Type: BLOOD SPECIMENOrdering Facility: [facility] Address: [address] [place] [address] Performed By: #### D ASHLEY, 1986-12 ####[facility] [id number] [place] [address] [place] CYTOLOGY NON-GYNon 5 AP DISCLAIMER Normal [facility] Comment on above: Order Comment: Speci men Type: FLUID SPECIMENOrdering Facility: [facility] Address: [address] [place] [address] Result Comment: Shellie pugh Developed Test (LDT) Disclaimer:Performance characteristics of immunohistochemical, immunofluorescent, and chromogenic in-situ hybridization tests have been determined by the performing laboratory within [facility]'s [facility] Torres Pathology and Laboratory Medicine Department ([facility], [facility], [facility], [facility], [facility], [facility], or [facility]) in a manner consistent with CLIA requirements. One or more of these tests may not have been cleared or approved by the FDA. [facility] is regulated under CLIA as qualified to perform high-complexity testing. These tests are used for clinical purposes. These should not be regarded as investigational or for research. Positive and negative controls stain appropriately. 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 WOODWORKER.CNPOrdering Location: [place] [address] Received: 11/11/2024 08:30 PMPathologist: Sameer Fournier MDSpecimen: Abdomen Performed By: #### C YTONON ####[facility] LABCLIA [id number] [place] [address] [place] CLINICAL HISTORY paracentesis fluid Normal [facility] Comment on above: Order Comment: Speci men Type: FLUID SPECIMENOrdering Facility: [facility] Address: [address] [place] [address] Performed By: #### C YTONON ####[facility] LABCLIA [id number] [address] [place] FINAL DIAGNOSIS Normal [facility] Comment on above: Order Comment: Speci men Type: FLUID SPECIMENOrdering Facility: [facility] Address: [address] [place] [address] Result Comment: A - Abdomen, Fluid Negative for malignant cells.The following cell blocks were associated with this case:A1\X09\Cell Block, Alcohol Fixed\X09\ at 1034 EDT Performed By: #### C YTONON ####[facility] LABCLIA [id number] [place] [address] [place] FINAL PERFORMING LAB Normal [facility] Comment on above: Order Comment: Speci men Type: FLUID SPECIMENOrdering Facility: [facility] Address: [address] [place] [address] Result Comment: Tech nical component, dental scheduling coordinator screening performed at: [facility], [address] [place] [address] CLIA: [id number] interpretation performed at: [facility], [address] [place] [address] CLIA# [id number] Director: Titi Voss MD Performed By: #### C YTONON ####[facility] LABCLIA [id number] [place] [address] [place] GROSS DESCRIPTION A. Abdomen Normal [facility] Comment on above: Order Comment: Speci men Type: FLUID SPECIMENOrdering Facility: [facility] Address: [address] [place] [address] Result Comment: 1450 cc opaque lexis fluid . ThinPrep and Cell Block prepared. Performed By: #### C YTONON ####[facility] LABCLIA [id number] [place] [address] [place] Cancer Ag19-9 SerPl-aCncon 0 11-11-2024 Cancer Ag 19-9 Qn <2.0 Normal <36.0 [facility] Comment on above: Order Comment: Speci men Type: BLOOD SPECIMENOrdering Facility: [facility] Address: [address] [place] [address] Result Comment: [facility] er antigen 19-9 test is used [...] used interchangeably. Performed By: #### 2 039-6, 76609-1, 2532-0 ####[facility] LABIA [id number] [place] [address] [place] Cardiolipin IgA Ser IA-aCnco n 11-11-2024 Cardiolipin IgA IA Qn (S) 9.7 [APL'U] Normal <12.0 [facility] Comment on above: Order Comment: Ezekiel ramirez Type: BLOOD SPECIMENOrdering Facility: [facility] Address: [address] [place] [address] Result Comment: <12 APL [id number] APL Indeterminate>20 APL PositiveThe following results were obtained with the [employer] Online [employer] Technology[employer] Lite TEZ IgA III ANDERS. Cardiolipin IgA values obtained with the different manufacturers' assay methods may not be used interchangeably. The magnitude of the reported IgA levels cannot be correlated to an endpoint titer. Performed By: #### 5 076-5, MELVIN ARMENTA ####[facility] [id number] [place] [address] [place] DIRECT BILIRUBIN BLOODon Bilirubin.conjugated [Mass/Vol] 1.1 mg/dL High <0.3 [facility] Comment on above: Order Comment: Ezekiel ramirez Type: BLOOD SPECIMENOrdering Facility: [facility] Address: [address] [place] [address] Performed By: #### D ASHLEY, 1986-12 ####[facility] LABIA [id number] [place] [id number] [place] ECG COMPLETEon 11-11-2024 ECG COMPLETE Normal [facility] [id number] 11-11-2024 ECG01 Normal [facility] Ferritin SerPl-mCncon 2024 Ferritin [Mass/Vol] 82.4 ng/mL Normal 30.3-565.7 [facility] Comment on above: Order Comment: Speci men Type: BLOOD SPECIMENOrdering Facility: [facility] Address: [address] [place] [address] Performed By: #### 2 276-4, 36695-7, 81060-5, 10558-7, 2777-1, 64362-6 ####[facility] LABCLIA [id number] [place] [address] [place] Fibrinogen PPP-mCncon 2024 Fibrinogen Coag (PPP) [Mass/Vol] 90 mg/dL Low 200-400 [facility] Comment on above: Order Comment: Speci men Type: BLOOD SPECIMENOrdering Facility: [facility] Address: [address] [place] [address] Result Comment: Samp le checked for clot.Result rechecked. Performed By: #### 3 255-7, 61975-7 ####[facility] LABCLIA [id number] [place] [address] [place] HISTORY PHYSICALon HISTORY PHYSICAL Normal [facility] HYPERCOAG PANELon 11-11-2024 Activated protein C resistance Coag (PPP) [Time ratio] 2.10 Ratio Normal >1.96 [facility] Comment on above: Order Comment: Speci men Type: BLOOD SPECIMENOrdering Facility: [facility] Address: [address] [place] [address] Performed By: #### L [id number], HCOAG, 6303-2, 38897-4, 67325-7 ####[facility] LABCLIA [id number] [place] [address] [place] Antithrombin actual/normal Chromogenic method (PPP) [Rel catalytic activity/Vol] 30 % Low 84-138 [facility] Comment on above: Order Comment: Speci men Type: BLOOD SPECIMENOrdering Facility: [facility] Address: [address] [place] [address] Performed By: #### L [id number], HCOAG, 6303-2, 06966-2, 90871-9 ####[facility] LABCLIA [id number] [place] [address] [place] aPTT Coag (Bld) [Time] 47.9 s High 24.0-35.1 [facility] Comment on above: Order Comment: Speci men Type: BLOOD SPECIMENOrdering Facility: [facility] Address: [address] [place] [address] Performed By: #### L [id number], HCOAG, 6303-2, 04668-7, 46542-8 ####[facility] LABIA [id number] [place] [address] [place] aPTT W excess hexagonal phase phospholipid Coag (PPP) [Time] 36.5 seconds Normal 34.0-51.8 [facility] Comment on above: Order Comment: Speci men Type: BLOOD SPECIMENOrdering Facility: [facility] Address: [address] [place] [address] Performed By: #### L [id number], HCOAG, 6303-2, 07943-2, 20387-2 ####[facility] LABIA [id number] [place] [address] [place] aPTT-LA w 1:1 PNP Coag (PPP) [Time] 32.5 seconds Normal <33.2 [facility] Comment on above: Order Comment: Speci men Type: BLOOD SPECIMENOrdering Facility: [facility] Address: [address] [place] [address] Result Comment: This test was developed, and its performance characteristics determined by the [facility] Department of Pathology and Laboratory Medicine. It has not been cleared or approved by the FDA. The [facility] Department of Pathology and Laboratory Medicine is regulated under CLIA as qualified to perform high-complexity testing. This test is used for clinical purposes. It should not be regarded as investigational or for research. Performed By: #### L [id number], HCOAG, 6303-2, 30229-8, 67697-9 ####[facility] LABCLIA [id number] [place] [address] [place] Coagulation factor VIII activity actual/normal Coag (PPP) [Relative time] 332 % High 50-173 [facility] Comment on above: Order Comment: Speci men Type: BLOOD SPECIMENOrdering Facility: [facility] Address: [address] [place] [address] Performed By: #### L [id number], HCOAG, 6303-2, 92791-3, 53581-9 ####[facility] LABCLIA [id number] [place] [address] [place] Coagulation factor X activated act Coag Qn (PPP) <0.10 Normal <0.10 [facility] Comment on above: Order Comment: Speci men Type: BLOOD SPECIMENOrdering Facility: [facility] Address: [address] [place] [address] Result Comment: This test was developed, and its performance characteristics determined by the [facility] Department of Pathology and Laboratory Medicine. It has not been cleared or approved by the FDA. The [facility] Department of Pathology and Laboratory Medicine is regulated under CLIA as qualified to perform high-complexity testing. This test is used for clinical purposes. It should not be regarded as investigational or for research. Performed By: #### L [id number], HCOAG, 6303-2, 96980-1, 47991-8 ####[facility] LABCLIA [id number] [place] [id number] [place] Delta dRVVT Coag (PPP) [Time diff] 2.2 delta seconds Normal <7.1 [facility] Comment on above: Order Comment: Speci men Type: BLOOD SPECIMENOrdering Facility: [facility] Address: [address] [place] [address] Performed By: #### L [id number], HCOAG, 6303-2, 98367-6, 06201-9 ####[facility] LABCLIA [id number] [place] [id number] [place] dRVVT W excess hexagonal phase phospholipid actual/normal Coag (PPP) [Relative time] 34.3 seconds Normal 34.2-47.9 [facility] Comment on above: Order Comment: Speci men Type: BLOOD SPECIMENOrdering Facility: [facility] Address: [address] [place] [address] Performed By: #### L [id number], HCOAG, 6303-2, 47746-9, 71441-5 ####[facility] [id number] [place] [address] [place] Protein C actual/normal Coag (PPP) [Relative time] 24 % Low 76-147 [facility] Comment on above: Order Comment: Speci men Type: BLOOD SPECIMENOrdering Facility: [facility] Address: [address] [place] [address] Performed By: #### L [id number], HCOAG, 6303-2, 93897-5, 02290-0 ####[facility] [id number] [place] [address] [place] Protein S actual/normal Coag (PPP) [Relative time] 28 % Low 59-152 [facility] Comment on above: Order Comment: Speci men Type: BLOOD SPECIMENOrdering Facility: [facility] Address: [address] [place] [address] Performed By: #### L [id number], HCOAG, 6303-2, 41864-0, 17179-2 ####[facility] LABIA [id number] [place] [address] [place] Protein S Free Ag actual/normal IA (PPP) [Relative mass conc] 45 % Low 55-148 [facility] Comment on above: Order Comment: Speci men Type: BLOOD SPECIMENOrdering Facility: [facility] Address: [address] [place] [address] Performed By: #### L [id number], HCOAG, 6303-2, 43529-6, 20690-0 ####[facility] LABCLIA [id number] [place] [id number] [place] Thrombin time Coag (PPP) [Time] 20.0 seconds High <18.6 [facility] Comment on above: Order Comment: Speci men Type: BLOOD SPECIMENOrdering Facility: [facility] Address: [address] [place] [address] Performed By: #### L [id number], HCOAG, 6303-2, 80761-2, 78226-1 ####[facility] LABCLIA [id number] [address] HYPERCOAG PANEL INTERPon INTERPRETATION (HYPERCOAG) Normal [facility] Comment on above: Order Comment: Ezekiel ramirez Type: BLOOD SPECIMENOrdering Facility: [facility] Address: [address] [place] [address] Result Comment: Abno rmal - see comment [...] negative for the c.*97G>A variant (legacy name 90614N>A) in the 3' untranslated region of the [...] phase phospholipid neutralization. Performed By: #### L [id number], HCOAG, 6303-2, 58226-1, 82932-1 ####[facility] LABCLIA [id number] [place] [address] [place] Pathologist name Reviewed by Julia Howell M.D., Ph.D Normal [facility] Comment on above: Order Comment: Ezekiel ramirez Type: BLOOD SPECIMENOrdering Facility: [facility] Address: [address] [place] [address] Performed By: #### L [id number], HCOAG, 6303-2, 70363-0, 52843-0 ####[facility] LABCLIA [id number] [place] [address] [place] Haptoglob SerPl-mCncon 11-11 Haptoglobin [Mass/Vol] 15 mg/dL Low 31-238 [facility] Comment on above: Order Comment: Ezekiel ramirez Type: BLOOD SPECIMENOrdering Facility: [facility] Address: [address] [place] [address] Performed By: #### 2 4362-6, 4542-7 ####[facility] LABIA [id number] [place] [address] [place] HbA1c (Bld)on 11-11-2024 Average glucose Estimated from glycated hemoglobin (Bld) [Mass/Vol] 154 mg/dL Normal [facility] Comment on above: Order Comment: Ezekiel ramirez Type: BLOOD SPECIMENOrdering Facility: [facility] Address: [address] [place] [address] Result Comment: eAG: (Estimated average glucose) is a calculated value from HgbA1c and is direct marketing representative of the average blood glucose level in the last 2-3 month period. Performed By: #### 5 5454-3, 93150-8 ####[facility] LABCLIA [id number] [place] [id number] [place] HbA1c (Bld) [Mass fraction] 7.0 % High 4.3-5.6 [facility] Comment on above: Order Comment: Ezekiel ramirez Type: BLOOD SPECIMENOrdering Facility: [facility] Address: [address] [place] [address] Result Comment: Amer ican Diabetes Association guidelines indicate that patients with HgbA1c in the range 5.7-6.4% are at increased risk for development of diabetes, and intervention by lifestyle modification may be beneficial. HgbA1c greater or equal to 6.5% is considered diagnostic of diabetes. Performed By: #### 5 5454-3, 03377-7 ####[facility] LABCLIA [id number] [facility] [place] [id number] [address] [place] Hepatic function 2000 panelo n 11-11-2024 Albumin [Mass/Vol] 2.1 g/dL Low 3.9-4.9 [facility] Comment on above: Order Comment: Speci men Type: BLOOD SPECIMENOrdering Facility: [facility] Address: [address] [place] [address] Performed By: #### 2 276-4, 57498-8, 86207-2, 55751-3, 2776-1, ####[facility] LABCLIA [id number] [facility] [address] [place] [address] [place] ALP [Catalytic activity/Vol] 310 U/L High 38-113 [facility] Comment on above: Order Comment: Speci men Type: BLOOD SPECIMENOrdering Facility: [facility] Address: [address] [place] [address] Performed By: #### 2 276-4, 08258-0, 91228-6, 72958-4, 2776-1, ####[facility] LABCLIA [id number] [facility] [address] [place] [address] [place] ALT [Catalytic activity/Vol] 31 U/L Normal 10-54 [facility] Comment on above: Order Comment: Speci men Type: BLOOD SPECIMENOrdering Facility: [facility] Address: [address] [place] [address] Performed By: #### 2 276-4, 97524-9, 87490-0, 17040-5, 2776-1, ####[facility] LABCLIA [id number] [facility] [address] [place] [address] [place] AST [Catalytic activity/Vol] 44 U/L High 14-40 [facility] Comment on above: Order Comment: Speci men Type: BLOOD SPECIMENOrdering Facility: [facility] Address: [address] [place] [address] Performed By: #### 2 276-4, 92232-2, 08626-1, 91930-3, 2777-1, 24519-1 ####[facility] LABCLIA [id number] [place] [address] [place] Bilirubin [Mass/Vol] 1.6 mg/dL High 0.2-1.3 [facility] Comment on above: Order Comment: Speci men Type: BLOOD SPECIMENOrdering Facility: [facility] Address: [address] [place] [address] Performed By: #### 2 276-4, 87545-2, 69688-5, 63146-0, 7-1, 15060-9 ####[facility] LABIA [id number] [place] [address] [place] Bilirubin.conjugated [Mass/Vol] 1.0 mg/dL High <0.3 [facility] Comment on above: Order Comment: Speci men Type: BLOOD SPECIMENOrdering Facility: [facility] Address: [address] [place] [address] Performed By: #### 2 276-4, 78871-9, 09929-3, 76902-5, 7-1, 68645-6 ####[facility] LABIA [id number] [place] [id number] [place] Protein [Mass/Vol] 5.3 g/dL Low 6.3-8.0 [facility] Comment on above: Order Comment: Speci men Type: BLOOD SPECIMENOrdering Facility: [facility] Address: [address] [place] [address] Performed By: #### 2 276-4, 60695-1, 97388-7, 52819-9, 2777-1, 45566-3 ####[facility] LABCLIA [id number] [address] [address] [place] IMMATURE PLATELET FRACTIONon 11-11-2024 Platelets reticulated/100 platelets Auto (Bld) 7.7 % High 0.9-7.2 [facility] Comment on above: Order Comment: Speci men Type: BLOOD SPECIMENOrdering Facility: [facility] Address: [address] [place] [address] Performed By: #### I PFR, 69535-1, 32468-9 ####[facility] LABCLIA [id number] [place] [address] [place] Iron and Iron binding capaci ty panelon 11-11-2024 Iron [Mass/Vol] 34 ug/dL Low 41-186 [facility] Comment on above: Order Comment: Speci men Type: BLOOD SPECIMENOrdering Facility: [facility] Address: [address] [place] [address] Performed By: #### 2 276-4, 28186-8, 69628-3, 22147-1, 2777-1, ####[facility] LABIA [id number] [address] [place] Iron binding capacity [Mass/Vol] 180 ug/dL Low 232-386 [facility] Comment on above: Order Comment: Speci men Type: BLOOD SPECIMENOrdering Facility: [facility] Address: [address] [place] [address] Performed By: #### 2 276-4, 71997-9, 92537-1, 31755-4, 2777-1, ####[facility] LABIA [id number] [place] [address] [place] Iron/TIBC [Molar ratio] 18.9 % Normal 15.0-57.0 C [facility] Comment on above: Order Comment: Speci men Type: BLOOD SPECIMENOrdering Facility: [facility] Address: [address] [place] [address] Performed By: #### 2 276-4, 02633-7, 77812-4, 41692-3, 2777-1, 45681-8 ####[facility] LABCLIA [id number] [place] [address] [place] LDH SerPl-cCncon 11-11-2024 LDH [Catalytic activity/Vol] 321 U/L High 135-225 [facility] Comment on above: Order Comment: Speci men Type: BLOOD SPECIMENOrdering Facility: [facility] Address: [address] [place] [address] Performed By: #### 2 039-6, 02670-5, 2532-0 ####[facility] LABCLIA [id number] [place] [address] [place] Lipase Fld[facility] 11-11-2024 Lipase (Body fld) [Catalytic activity/Vol] 29 U/L Normal See Comment [facility] Comment on above: Order Comment: Speci men Type: FLUID SPECIMENOrdering Facility: [facility] Address: [address] [place] [address] Result Comment: Pleu ral fluids: Lipase measurement [...] document C49A. PAULETTE Diaz: Clinical Laboratory Standards Hooper: 2007.2. David Guillory. A review of pancreatic cyst fluid analysis in the differential diagnosis of pancreatic cyst lesions. [facility] [employer] OnlineFirst 2013:0:1-16. Performed By: #### 1 747-5, 1795-4, 87146-8, 2881-1 ####[facility] LABCLIA [id number] [place] [id number] [place] Lupus anticoagulant neutrali zation platelet Coag Ql (PPP)on 11-11-2024 aPTT Coag (Bld) [Time] 56.8 s High 30.2-43.0 [facility] Comment on above: Order Comment: Speci men Type: BLOOD SPECIMENOrdering Facility: [facility] Address: [address] [place] [address] Result Comment: This test was developed, and its performance characteristics determined by the [facility] Department of Pathology and Laboratory Medicine. It has not been cleared or approved by the FDA. The [facility] Department of Pathology and Laboratory Medicine is regulated under CLIA as qualified to perform high-complexity testing. This test is used for clinical purposes. It should not be regarded as investigational or for research. Performed By: #### L [id number], HCOAG, 6303-2, 57150-3, 57247-8 ####[facility] LABIA [id number] [place] [id number] [place] aPTT Coag (Bld) [Time] 36.5 s Normal 31.5-38.3 [facility] Comment on above: Order Comment: Speci men Type: BLOOD SPECIMENOrdering Facility: [facility] Address: [address] [place] [address] Result Comment: This test was developed, and its performance characteristics determined by the [facility] Department of Pathology and Laboratory Medicine. It has not been cleared or approved by the FDA. The [facility] Department of Pathology and Laboratory Medicine is regulated under CLIA as qualified to perform high-complexity testing. This test is used for clinical purposes. It should not be regarded as investigational or for research. Performed By: #### L [id number], HCOAG, 6303-2, 13736-0, 07187-6 ####[facility] LABIA [id number] [address] [address] [place] PLATELET NEUT 0.0 Seconds Normal <1.9 [facility] Comment on above: Order Comment: Speci men Type: BLOOD SPECIMENOrdering Facility: [facility] Address: [address] [place] [address] Result Comment: This test was developed, and its performance characteristics determined by the [facility] Department of Pathology and Laboratory Medicine. It has not been cleared or approved by the FDA. The [facility] Department of Pathology and Laboratory Medicine is regulated under CLIA as qualified to perform high-complexity testing. This test is used for clinical purposes. It should not be regarded as investigational or for research. Performed By: #### L [id number], HCOAG, 6303-2, 12202-4, 33065-9 ####[facility] LABCLIA [id number] [facility] [address] [place] [address] [place] MANUAL DIFFERENTIAL, BODY FL UIDon 11-11-2024 DIF TTL, BODY FLUID 100 cells counted Normal [facility] Comment on above: Order Comment: Speci men Type: FLUID SPECIMENOrdering Facility: [facility] Address: [address] [place] [address] Performed By: #### C CBF, [id number] ####[facility] LABCLIA [id number] [facility] [address] [place] [address] [place] LYMPH%, BF 37 % High 18-36 [facility] Comment on above: Order Comment: Speci men Type: FLUID SPECIMENOrdering Facility: [facility] Address: [address] [place] [address] Performed By: #### C CBF, [id number] ####[facility] LABCLIA [id number] [facility] [id number] [address] [place] MACRO%, BF 21 % Low 64-80 [facility] Comment on above: Order Comment: Speci men Type: FLUID SPECIMENOrdering Facility: [facility] Address: [address] [place] [address] Performed By: #### C CBF, [id number] ####[facility] LABCLIA [id number] [facility] [address] [place] [address] [place] MESO %, BF 12 % High 0-2 [facility] Comment on above: Order Comment: Speci men Type: FLUID SPECIMENOrdering Facility: [facility] Address: [address] [place] [address] Performed By: #### C CBF, [id number] ####[facility] LABCLIA [id number] [address] [place] [address] [place] NEUT%, BF 26 % High 0-1 [facility] Comment on above: Order Comment: Speci men Type: FLUID SPECIMENOrdering Facility: [facility] Address: [address] [place] [address] Performed By: #### C CBF, [id number] ####[facility] LABCLIA [id number] [place] [address] [place] REAC LYMPH %, BF 4 % Normal [facility] Comment on above: Order Comment: Speci men Type: FLUID SPECIMENOrdering Facility: [facility] Address: [address] [place] [address] Performed By: #### C CBF, [id number] ####[facility] LABCLIA [id number] [address] [address] [place] MEDICAL EMERon 11-11-2024 MEDICAL KRISTINA Normal [facility] MEDICAL KRISTINA Normal [facility] Magnesium SerPl-mCncon 11-11 Magnesium [Mass/Vol] 2.3 mg/dL Normal 1.7-2.3 [facility] Comment on above: Order Comment: Speci men Type: BLOOD SPECIMENOrdering Facility: [facility] Address: [address] [place], [place] [address] Performed By: #### 2 276-4, 70468-3, 88087-9, 26149-2, 2777-1, 21231-2 ####[facility] LABCLIA [id number] [address] [address] [place] NURSING PROGon 04-10-2025 NURSING PROG Normal [facility] PLT DEP.AB, UNF. HEPARINon 0 11-11-2024 % REL HIGH DOSE HEP PORCINE 0 % Normal [facility] Comment on above: Order Comment: Speci men Type: BLOOD SPECIMENOrdering Facility: [facility] Address: [address] [place] [address] Performed By: #### S ERORE ####[facility] [id number] [place] [address] % REL LOW DOSE HEP PORCINE 0 % Normal [facility] Comment on above: Order Comment: Speci men Type: BLOOD SPECIMENOrdering Facility: [facility] Address: [address] [place] [address] Performed By: #### S ERORE ####[facility] GENERALIA [id number] [place] [address] SEROTONIN REL INTERP See Note Normal [facility] Comment on above: Order Comment: Speci james Type: BLOOD SPECIMENOrdering Facility: [facility] Address: [address] [place] [address] Result Comment: This patient's specimen demonstrates a [...] Additionalinformation regarding diagnosis of HIT is available [employer].INTERPRETIVE INFORMATION: ABRAHAM, Unfractionated HeparinThis test was developed and its performance characteristicsdetermined by [employer]. It has not been cleared orapproved by the [place] Food and Drug Administration. This test wasperformed in a CLIA certified laboratory and is intended forclinical purposes.Performed By: [employer] [place] [id number] Director: Lizandro Ordonez MD, PhDCLIA Number: [id number] Performed By: #### S ERORE ####[facility] LABORATORIESCLIA [id number] [place] [address] ABRAHAM, UNFRACTIONATED HEPARIN Negative Normal Negative [facility] Comment on above: Order Comment: Speci men Type: BLOOD SPECIMENOrdering Facility: [facility] Address: [address] [place] [address] Performed By: #### S RL ####[facility] [id number] [place] [address] PROTHROMBIN GENE PCRon 11-11 PROTHROMBIN GENE MUTATION Normal [facility] Comment on above: Order Comment: Speci men Type: BLOOD SPECIMENOrdering Facility: [facility] Address: [address] [place] [address] Result Comment: Prot hrombin Gene MutationLaboratory Accession Number: [id number]:NORMALInterpretation:The DNA sample is negative for the c.*97G>A variant (legacy hikv26498B>A) in the 3' untranslated region of the Factor II (F2) gene.This result is not associated with an increased risk of thromboembolicdisease. Thromboembolic disease is a multifactorial disorder and othercauses are not excluded by this result.Methodology:Isolated Genomic DNA from the patient's blood specimen is evaluatedfor the c*97G>A ([id number]) variant of the F2 gene [RefSeqNM_000506.53;GRCh38/hg38] by multiplex polymerase chain reaction (PCR)followed by melting curve analysis.Limitations:This assay is designed to detect the c.*97G>A (14566D>A) variant inthe F2 gene. Uncommon variants or single nucleotide polymorphisms mayaffect binding of probes and may rarely result in false negative,false positive or indeterminate results. This assay does not detectother disease-associated rare variants in F2 or other causes ofthromboembolic disease.Disclaimer:This test was developed and its performance characteristics determinedby [facility]'s Pathology and Laboratory Medicine Department. Ithas not been cleared or approved by the FDA. [facility] is regulated under CLIAas certified to perform high-complexity testing. This test is used forclinical purposes. It should not be regarded as investigational or forresearch.Test performed at [facility], [address] [place] [address] [id number]. [place] Number: [id number]:1) Inheritied Thrombophilias in . ACOG Practice Bulletin. No.197. [place] [employer]. ObseteGynecol 2018;132:e18-34.2) Elfego SR, Kinsey FR, Jeremy PH, and Bernice RIVERA. A commongenetic variation in the 3'-untranslated region of the prothrombingene is associated with elevated plasma prothrombin levels and anincrease in venous thrombosis. Blood 88:3698-703, 1995.3) Rica I, Justus V, Nayan C, Emily K. Ezhzomqbmnx65875G>T: 16 new cases, association with the 69622T>G polymorphism,and literature review. J Thromb Haemost. 2009;9:1585-7.Interpretation performed at remote location (A1) by Fifi España MD Performed By: #### P TGEN ####[facility] [id number] [place] [address] [place] PT panel Coag (PPP)on 2024 INR Coag (PPP) [Relative time] 2.3 {INR} High 0.9-1.3 [facility] Comment on above: Order Comment: Speci men Type: BLOOD SPECIMENOrdering Facility: [facility] Address: [address] [place] [address] Result Comment: Sarah min K Antagonist (VKA) Therapeutic Range: INR 2 to 3 (Target INR of 2.5)Note: For patients treated with VKA drugs, such as warfarin, the [place] [employer] 2012 Guideline recommends [...] al. Chest 2012, 141:7S-47SHector HIRSCH, et al. [facility] 2017, 70: 252-289 Performed By: #### P TTA, 50387-3 ####[facility] LABCLIA [id number] [place] [address] [place] PT Coag (PPP) [Time] 23.1 s High 9.7-13.0 [facility] Comment on above: Order Comment: Speci men Type: BLOOD SPECIMENOrdering Facility: [facility] Address: [address] [place] [address] Performed By: #### P TTA, 32974-4 ####[facility] [id number] [place] [address] [place] INR Coag (PPP) [Relative time] 2.1 {INR} High 0.9-1.3 [facility] Comment on above: Order Comment: Speci men Type: BLOOD SPECIMENOrdering Facility: [facility] Address: [address] [place] [address] Result Comment: Sarah min K Antagonist (VKA) Therapeutic Range: INR 2 to 3 (Target INR of 2.5)Note: For patients treated with VKA drugs, such as warfarin, the [place] [employer] 2012 Guideline recommends [...] of 2.5 to 3.5 (target INR of 3).keon Acevedo al. Chest 2012, 141:7S-47SHector HIRSCH et al. [facility] 2017, 70: 252-289 Performed By: #### 3 4528-0 ####[facility] LABIA [id number] [place] [address] [place] PT Coag (PPP) [Time] 22.0 s High 9.7-13.0 [facility] Comment on above: Order Comment: Speci men Type: BLOOD SPECIMENOrdering Facility: [facility] Address: [address] [place] [address] Performed By: #### 3 4528-0 ####[facility] LABIA [id number] [place] [address] [place] PTT, ANTICOAGULANT THERAPYon 11-11-2024 aPTT Coag (PPP) [Time] EXTREMELY ABNORMA L RESULT. No clot detected at 320 seconds. Refer to anticoagulation nomogram for further actions. Critically abnormal (none) [facility] Comment on above: Order Comment: Speci men Type: BLOOD SPECIMENOrdering Facility: [facility] Address: [address] [place] [address] Result Comment: Resu lt rechecked.Sample checked for clot. Performed By: #### P TTA, 93842-0 ####[facility] [id number] [place] [address] [place] Phosphate SerPl-mCncon 11-11 Phosphate [Mass/Vol] 2.6 mg/dL Low 2.7-4.8 [facility] Comment on above: Order Comment: Speci men Type: BLOOD SPECIMENOrdering Facility: [facility] Address: [address] [place] [address] Performed By: #### 2 276-4, 62167-5, 58082-7, 51899-8, 2777-1, 95018-7 ####[facility] LABIA [id number] [place] [address] [place] Prot Fld-mCncon 11-11-2024 Protein (Body fld) [Mass/Vol] 0.2 g/dL Normal See Comment [facility] Comment on above: Order Comment: Speci men Type: FLUID SPECIMENOrdering Facility: [facility] Address: [address] [place] [address] Result Comment: Sero us fluids: Effusions are [...] document C49A. PAULETTE Diaz: Clinical Laboratory Standards Hooper: 2007. Performed By: #### 1 747-5, 1795-4, 83545-8, 2881-1 ####[facility] LABCLIA [id number] [place] [address] [place] Renal function 2000 panelon 11-11-2024 Albumin [Mass/Vol] 2.4 g/dL Low 3.9-4.9 [facility] Comment on above: Order Comment: Speci men Type: BLOOD SPECIMENOrdering Facility: [facility] Address: [address] [place] [address] Performed By: #### 2 4362-6, 4542-7 ####[facility] LABIA [id number] [place] [address] [place] Anion gap [Moles/Vol] 10 mmol/L Normal 8-15 [facility] Comment on above: Order Comment: Speci men Type: BLOOD SPECIMENOrdering Facility: [facility] Address: [address] [place] [address] Performed By: #### 2 4362-6, 4542-7 ####[facility] LABCLIA [id number] [address] [address] [place] Calcium [Mass/Vol] 9.3 mg/dL Normal 8.5-10.2 [facility] Comment on above: Order Comment: Speci men Type: BLOOD SPECIMENOrdering Facility: [facility] Address: [address] [place] [address] Performed By: #### 2 4362-6, 454-7 ####[facility] LABCLIA [id number] [place] [id number] [place] Chloride [Moles/Vol] 100 mmol/L Normal 98-107 [facility] Comment on above: Order Comment: Speci men Type: BLOOD SPECIMENOrdering Facility: [facility] Address: [address] [place] [address] Performed By: #### 2 4362-6, 4541-7 ####[facility] LABCLIA [id number] [place] [address] [place] CO2 [Moles/Vol] 13 mmol/L Low 22-30 [facility] Comment on above: Order Comment: Speci men Type: BLOOD SPECIMENOrdering Facility: [facility] Address: [address] [place] [address] Performed By: #### 2 4362-6, 4541-7 ####[facility] LABCLIA [id number] [place] [id number] [place] Creatinine [Mass/Vol] 1.26 mg/dL High 0.73-1.22 [facility] Comment on above: Order Comment: Speci men Type: BLOOD SPECIMENOrdering Facility: [facility] Address: [address] [place] [address] Performed By: #### 2 4362-6, 4541-7 ####[facility] LABCLIA [id number] [place] [id number] [place] Creatinine and Glomerular filtration rate.predicted panel (S/P/Bld) 66 mL/min/1.73m??? Normal >=60 [facility] Comment on above: Order Comment: Ezekiel ramirez Type: BLOOD SPECIMENOrdering Facility: [facility] Address: [address] [place] [address] Result Comment: Patric mated Glomerular Filtration Rate [...] GFR. Performed By: #### 2 4362-6, 4542-7 ####[facility] [id number] [place] [address] [place] Glucose [Mass/Vol] 255 mg/dL High 74-99 [facility] Comment on above: Order Comment: Ezekiel ramirez Type: BLOOD SPECIMENOrdering Facility: [facility] Address: [address] [place] [address] Result Comment: The [place] [employer] (ADA) provides guidance for cutoff [...] Standards of Medical Care in Diabetes 2016, [place] [employer]. Diabetes Care. 2016.39(Suppl 1). Performed By: #### 2 4362-6, 4542-7 ####[facility] LABIA [id number] [place] [id number] [place] Phosphate [Mass/Vol] 2.5 mg/dL Low 2.7-4.8 [facility] Comment on above: Order Comment: Ezekiel ramirez Type: BLOOD SPECIMENOrdering Facility: [facility] Address: [address] [place] [address] Performed By: #### 2 4362-6, 4541-7 ####[facility] LABIA [id number] [place] [address] [place] Potassium [Moles/Vol] 4.4 mmol/L Normal 3.7-5.1 [facility] Comment on above: Order Comment: Speci men Type: BLOOD SPECIMENOrdering Facility: [facility] Address: [address] [place] [address] Performed By: #### 2 4362-6, 4541-7 ####[facility] LABIA [id number] [place] [address] [place] Sodium [Moles/Vol] 123 mmol/L Low 136-144 [facility] Comment on above: Order Comment: Speci men Type: BLOOD SPECIMENOrdering Facility: [facility] Address: [address] [place] [address] Performed By: #### 2 4362-6, 4541-7 ####[facility] LABIA [id number] [place] [address] [place] Urea nitrogen [Mass/Vol] 21 mg/dL Normal 9-24 [facility] Comment on above: Order Comment: Speci men Type: BLOOD SPECIMENOrdering Facility: [facility] Address: [address] [place] [address] Performed By: #### 2 4362-6, 4541-7 ####[facility] LABIA [id number] [place] [id number] [place] Retics #on 11-11-2024 Reticulocytes (Bld) [#/Vol] 0.60119 10*3/uL High 0.018-0.100 [facility] Comment on above: Order Comment: Speci men Type: BLOOD SPECIMENOrdering Facility: [facility] Address: [address] [place] [address] Performed By: #### I PFR, 49778-9, 98755-0 ####[facility] LABCLIA [id number] [place] [address] [place] Reticulocytes (Bld) [#/Vol]o n 11-11-2024 Reticulocytes/100 RBC (Bld) 4.1 % High 0.4-2.0 [facility] Comment on above: Order Comment: Speci men Type: BLOOD SPECIMENOrdering Facility: [facility] Address: [address] [place] [address] Performed By: #### I PFR, 87915-1, 15999-3 ####[facility] LABIA [id number] [address] [place] SEPSIS LACTATEon 11-11-2024 Lactate [Moles/Vol] 3.4 mmol/L High <=2.0 [facility] Comment on above: Order Comment: Speci men Type: BLOOD SPECIMENOrdering Facility: [facility] Address: [address] [place] [address] Performed By: #### S LACT ####[facility] [id number] [address] Lactate [Moles/Vol] 3.6 mmol/L High <=2.0 [facility] Comment on above: Order Comment: Speci men Type: BLOOD SPECIMENOrdering Facility: [facility] Address: [address] [place] [address] Performed By: #### S LACT ####[facility] [id number] [address] [place] Screen dRVVTon 11-11-2024 dRVVT Coag (PPP) [Time] 42.6 s Normal 32.0-45.7 C [facility] Comment on above: Order Comment: Speci men Type: BLOOD SPECIMENOrdering Facility: [facility] Address: [address] [place] [address] Performed By: #### L [id number], HCOAG, 6303-2, 80629-2, 93805-6 ####[facility] LABCLIA [id number] [place] [address] [place] US ABD LIVER VASCULARon 04-1 US ABD LIVER VASCULAR Normal [facility] US DOPPLER COMPLETEon 2024 [address]ER COMPLETE Normal [facility] XR ABDOMEN 1V SUPINEon 11-11 XR ABDOMEN 1V SUPINE Normal [facility] XR CHEST 1V FRONTAL PORTon 0 11-11-2024 XR CHEST 1V FRONTAL PORT Normal [facility] XR CHEST 1V FRONTAL PORT Normal [facility] aPTT PPPon 11-11-2024 aPTT Coag (PPP) [Time] 41.7 s High 23.0-32.4 [facility] Comment on above: Order Comment: Speci men Type: BLOOD SPECIMENOrdering Facility: [facility] Address: [address] [place] [address] Performed By: #### 3 255-7, 70484-2 ####[facility] [id number] [address] [place] dRVVT Coag (PPP) [Time]on dRVVT factor substitution immediately after 1:2 addition of normal plasma Coag (PPP) [Time] 35.4 seconds Normal 32.0-45.7 [facility] Comment on above: Order Comment: Speci men Type: BLOOD SPECIMENOrdering Facility: [facility] Address: [address] [place] [address] Performed By: #### L [id number], HCOAG, 6303-2, 03926-2, 01798-7 ####[facility] LABCLIA [id number] [address] [place] dRVVT/dRVVT.excess phospholipid Coag (PPP) [Ratio] 0.91 Normal <1.32 [facility] Comment on above: Order Comment: Speci men Type: BLOOD SPECIMENOrdering Facility: [facility] Address: [address] [place] [address] [place] [address] Performed By: #### L [id number], HCOAG, 6303-2, 29350-1, 51253-5 ####[facility] LABCLIA [id number] [facility] [address] [place] ALP [Catalytic activity/Vol] Ordered By: Kathie Powers on 11-10-2024 Serum or plasma alkaline phosphatase measurement 310 U/L High 40-129 [facility] ALT [Catalytic activity/Vol] Ordered By: Kathie Powers on 11-10-2024 Serum or plasma alanine aminotransferase (ALT) measurement 36 U/L <47 [facility] Absolute lymphocyte countOrd ered By: Kathie Powers on 11-10-2024 Lymphocytes Auto (Unsp spec) [#/Vol] 1.30 10*3/uL 0.83-4.51 [facility] Absolute neutrophil countOrd ered By: Kathie Powers on 11-10-2024 Absolute neutrophil count 16.2 X10^3/uL High 2.0-7.7 [facility] Albumin [Mass/Vol]Ordered By : Kathie Powers on 11-10-2024 Serum or plasma albumin measurement (mass/volume) 2.3 g/dL Low 3.5-5.0 [facility] Albumin/Globulin [Mass ratio ]Ordered By: Kathie Powers on 11-10-2024 Serum or plasma albumin/globulin mass ratio 0.7 RATIO Low 0.9-2.4 [facility] Anion gap [Moles/Vol]Ordered By: Kathie Powers on 11-10-2024 Anion gap in Serum or Plasma 11 5-15 [facility] Anion gap in Serum or Plasma Ordered By: Kathie Powers on 11-10-2024 Anion gap [Moles/Vol] 11 mmol/L 5-15 [facility] Automated lymphocyte count a s percentage of total leukocytesOrdered By: Kathie Powers on 11-10-2024 Lymphocytes/100 WBC Auto (Unsp spec) 6.6 % Low 19-41 [facility] BUN/creatinine ratioOrdered By: Kathie Powers on 11-10-2024 Urea nitrogen/Creatinine [Mass ratio] 16.6 mg/mg 10-20 [facility] BUN/creatinine ratio 16.6 RATIO 10-20 [facility] Bacteria LM.HPF (Urine sed) [#/Area]Ordered By: Kathie Powers on 11-10-2024 Urine sediment bacteria count by microscopy (number/high power field) 2+ /hpf None Seen [facility] Basophil percentageOrdered B y: Kathie Powers on 11-10-2024 Basophils/100 WBC (Bld) 0.5 % 0-1 [facility] Basophil percentage 0.5 % 0-1 [facility] Bilirubin Test strip Ql (U)O rdered By: Kathie Powers on 11-10-2024 Bilirubin Ql (U) Negative Negative [facility] Urine total bilirubin detection by test strip Negative Negative [facility] Bilirubin, totalOrdered By: Kathie Powers on 11-10-2024 Bilirubin [Mass/Vol] 2.09 mg/dL High 0.00-1.30 [facility] Bilirubin, total 2.09 mg/dL High 0.00-1.30 [facility] Calcium [Mass/Vol]Ordered By : Kathie Powers on 11-10-2024 Serum or plasma calcium measurement (mass/volume) 9.2 mg/dL 7.6-11.0 [facility] Carbon dioxide, total [Moles /volume] in Central venous bloodOrdered By: Kathie Powers on 11-10-2024 CO2 [Moles/Vol] 13.3 mmol/L Low 21.0-32.0 [facility] Carbon dioxide, total [Moles/volume] in Central venous blood 13.3 mmol/L Low 21.0-32.0 [facility] Chloride assayOrdered By: Paulette Powers on 11-10-2024 Chloride [Moles/Vol] 99 mmol/L 98-108 [facility] Chloride assay 99 mmol/L 98-108 [facility] Clarity (U)Ordered By: Kathie Powers on 11-10-2024 Urine clarity Turbid Clear [facility] Color (U)Ordered By: Kathie bhatt on 11-10-2024 Urine color determination Brown Yellow [facility] Creatinine [Mass/Vol]Ordered By: Kathie Powers on 11-10-2024 Serum creatinine measurement (mass/volume) 1.13 mg/dL 0.70-1.20 [facility] Eosinophil percentageOrdered By: Kathie Powers on 11-10-2024 Eosinophils/100 WBC (Bld) 1.9 % 0-5 [facility] Eosinophil percentage 1.9 % 0-5 [facility] Erythrocyte distribution wid th (RBC) [Ratio]Ordered By: Kathie Powers on 11-10-2024 Erythrocyte distribution width ratio 18.1 % High 11.6-14.6 [facility] Erythrocyte distribution width standard deviation 62.1 fl High 35.1-43.9 [facility] Erythrocyte distribution wid th ratioOrdered By: Kathie Powers on 11-10-2024 Erythrocyte distribution width (RBC) [Ratio] 18.1 % High 11.6-14.6 [facility] Erythrocyte distribution wid th standard deviationOrdered By: Kathie Powers on 11-10-2024 Erythrocyte distribution width (RBC) [Ratio] 62.1 fl High 35.1-43.9 [facility] Estimation of creatinine [place]ol[place] aranceOrdered By: Kathie Powers on 11-10-2024 Estimation of creatinine clearance 88.23 ml/min 50-250 [facility] GFR/1.73 sq M.predicted niki g non-blacks MDRD (S/P/Bld) [Vol rate/Area]Ordered By: Kathie Powers on 11-10-2024 Glomerular filtration rate (GFR) estimation/1.73 sq m using serum, plasma, or whole b 75 >60 [facility] Glomerular filtration rate ( GFR) estimation/1.73 sq m using serum, plasma, or whole bOrdered By: Kathie Powers on 11-10-2024 GFR/1.73 sq M.predicted among non-blacks MDRD (S/P/Bld) [Vol rate/Area] 75 mL/min/{1.73_m2} >60 [facility] Glucose Ql (U)Ordered By: Paulette Powers on 11-10-2024 Urine glucose detection Normal mg/dl Normal [facility] Glucose [Mass/Vol]Ordered By : Kathie Powers on 11-10-2024 Serum glucose measurement (mass/volume) 298 mg/dL High 70-99 [facility] Glucose measurement at bedsi deOrdered By: Kathie Powers on 11-10-2024 Glucose [Mass/Vol] 265 mg/dL High 74-106 [facility] Glucose measurement at bedside 265 mg/dL High 74-106 [facility] Hematocrit Auto (Bld) [Volum e fraction]Ordered By: Kathie Powers on 11-10-2024 Hematocrit (Bld) [Volume fraction] 32.9 % Low 40-54 [facility] Automated blood hematocrit (percentage) 32.9 % Low 40-54 [facility] Hemoglobin measurementOrdere d By: Kathie Powers on 11-10-2024 Hemoglobin (Bld) [Mass/Vol] 11.3 g/dL Low 13.0-16.5 [facility] Hemoglobin measurement 11.3 g/dL Low 13.0-16.5 [facility] Immature granulocytes/100 WB C Auto (Bld)Ordered By: Kathie Powers on 11-10-2024 Immature granulocytes/100 WBC (Bld) 1.100 % High 0.0-0.9 [facility] Automated immature granulocyte percentage 1.100 % High 0.0-0.9 [facility] International normalized rat io (INR) calculationOrdered By: Kathie Powers on 11-10-2024 International normalized ratio (INR) calculation 3.1 [facility] Ketones Test strip Ql (U)Ord ered By: Kathie Powers on 11-10-2024 Ketones Ql (U) 5 mg/dl High Negative [facility] Urine ketones detection by test strip 5 mg/dl High Negative [facility] Leukocyte esterase Test stri p Ql (U)Ordered By: Kathie Powers on 11-10-2024 Urine leukocyte esterase detection by dipstick 500 /ul High Negative [facility] Lymphocytes Auto (Unsp spec) [#/Vol]Ordered By: Kathie Powers on 11-10-2024 Absolute lymphocyte count 1.30 X10^3/uL 0.83-4.51 [facility] Lymphocytes/100 WBC Auto (Un sp spec)Ordered By: Kathie Powers on 11-10-2024 Automated lymphocyte count as percentage of total leukocytes 6.6 % Low 19-41 [facility] MCV (RBC) [Entitic vol]Order ed By: Kathie Powers on 11-10-2024 MCV (mean corpuscular volume) determination 92.7 fL 80-94 [facility] MCV (mean corpuscular volume ) determinationOrdered By: Kathie Powers on 11-10-2024 MCV (RBC) [Entitic vol] 92.7 fL 80-94 [facility] Mean corpuscular hemoglobin (MCH) determinationOrdered By: Kathie Powers on 11-10-2024 MCH (RBC) [Entitic mass] 31.8 pg 27.0-32.0 [facility] Mean corpuscular hemoglobin (MCH) determination 31.8 pg 27.0-32.0 [facility] Mean corpuscular hemoglobin concentration (MCHC) determinationOrdered By: Kathie Powers on 11-10-2024 Mean corpuscular hemoglobin concentration (MCHC) determination 34.3 g/dL 32-36 [facility] Mean platelet volume determi nationOrdered By: Kathie Powers on 11-10-2024 Mean platelet volume determination 12.2 fl High 6.2-12.0 [facility] Microscopic analysis of urin e for red blood cells (RBC)Ordered By: Kathie Powers on 11-10-2024 Microscopic analysis of urine for red blood cells (RBC) > 100 SEEN /hpf 0-5 [facility] Monocyte percentageOrdered B y: Kathie Powers on 11-10-2024 Monocytes/100 WBC (Bld) 6.9 % 0-10 [facility] Monocyte percentage 6.9 % 0-10 [facility] Mucus LM Ql (Urine sed)Order ed By: Kathie Powers on 11-10-2024 Mucus Ql (Urine sed) 0 SEEN /hpf [facility] Neutrophil percentageOrdered By: Kathie Powers on 11-10-2024 Neutrophils/100 WBC (Bld) 83.0 % High 47-70 [facility] Neutrophil percentage 83.0 % High 47-70 [facility] Nitrite Test strip Ql (U)Ord ered By: Kathie Powers on 11-10-2024 Nitrite Ql (U) Positive High Negative [facility] Urine nitrite test by dipstick Positive High Negative [facility] No Panel InformationOrdered By: Kathie Powers on 11-10-2024 58 U/L High <38 [facility] Nucleated red blood cell per centageOrdered By: Kathie Powers on 11-10-2024 Nucleated red blood cell percentage 0 % 0-5 [facility] Platelet countOrdered By: Paulette Powers on 11-10-2024 Platelets (Bld) [#/Vol] 58 10*3/uL Low 150-450 [facility] Platelet count 58 K/mm3 Low 150-450 [facility] Potassium (Unsp spec) [Mass/ Vol]Ordered By: Kathie Powers on 11-10-2024 Potassium measurement (mass/volume) 3.6 mmol/L 3.3-5.1 [facility] Potassium measurement (mass/ volume)Ordered By: Kathie Powers on 11-10-2024 Potassium (Unsp spec) [Mass/Vol] 3.6 mmol/L 3.3-5.1 [facility] Protein Test strip Ql (U)Ord ered By: Kathie Powers on 11-10-2024 Protein Ql (U) 500 mg/dl High Negative [facility] Urine protein assay by test strip, semi-quantitative 500 mg/dl High Negative [facility] Prothrombin timeOrdered By: Kathie Powers on 11-10-2024 PT Coag (PPP) [Time] 32.3 s High 11.7-14.9 [facility] Prothrombin time 32.3 SECONDS High 11.7-14.9 [facility] RBC Auto (Bld) [#/Vol]Ordere d By: Kathie Powers on 11-10-2024 RBC (Bld) [#/Vol] 3.55 10*6/uL Low 4.6-6.2 [facility] Automated blood erythrocyte count 3.55 M/mm3 Low 4.6-6.2 [facility] Serum creatinine measurement (mass/volume)Ordered By: Kathie Powers on 11-10-2024 Creatinine [Mass/Vol] 1.13 mg/dL 0.70-1.20 [facility] Serum globulin measurementOr dered By: Kathie Powers on 11-10-2024 Globulin (S) [Mass/Vol] 3.4 g/dL 2.2-4.2 [facility] Serum globulin measurement 3.4 g/dL 2.2-4.2 [facility] Serum glucose measurement (m ass/volume)Ordered By: Kathie Powers on 11-10-2024 Glucose [Mass/Vol] 298 mg/dL High 70-99 [facility] Serum or plasma alanine thomas otransferase (ALT) measurementOrdered By: Kathie Powers on 11-10-2024 ALT [Catalytic activity/Vol] 36 U/L <47 [facility] Serum or plasma albumin roosevelt urement (mass/volume)Ordered By: Kathie Powers on 11-10-2024 Albumin [Mass/Vol] 2.3 g/dL Low 3.5-5.0 [facility] Serum or plasma albumin/glob ulin mass ratioOrdered By: Kathie Powers on 11-10-2024 Albumin/Globulin [Mass ratio] 0.7 {ratio} Low 0.9-2.4 [facility] Serum or plasma alkaline kendrick sphatase measurementOrdered By: Kathie Powers on 11-10-2024 ALP [Catalytic activity/Vol] 310 U/L High 40-129 [facility] Serum or plasma calcium roosevelt urement (mass/volume)Ordered By: Kathie Powers on 11-10-2024 Calcium [Mass/Vol] 9.2 mg/dL 7.6-11.0 [facility] Serum or plasma urea nitroge n measurement (mass/volume)Ordered By: Kathie Powers on 11-10-2024 Urea nitrogen [Mass/Vol] 19 mg/dL 4-19 [facility] Sodium levelOrdered By: Javed Powers on 11-10-2024 Sodium [Moles/Vol] 123 mmol/L Low 133-145 [facility] Sodium level 123 mmol/L Low 133-145 [facility] Specific gravity (U) [Rel de nsity]Ordered By: Kathie Powers on 11-10-2024 Urine specific gravity measurement 1.015 1.002-1.030 [facility] Squamous epithelial cells de tection in urine sediment by light microscopyOrdered By: Kathie Powers on 11-10-2024 Epithelial cells.squamous LM Ql (Urine sed) 0 SEEN /hpf 0-5 [facility] Squamous epithelial cells detection in urine sediment by light microscopy 0 SEEN /hpf [facility] Total proteinOrdered By: Tyree Powers on 11-10-2024 Protein [Mass/Vol] 5.7 g/dL Low 5.9-8.4 [facility] Total protein 5.7 g/dL Low 5.9-8.4 [facility] Urea nitrogen [Mass/Vol]Orde red By: Kathie Powers on 11-10-2024 Serum or plasma urea nitrogen measurement (mass/volume) 19 mg/dL 4-19 [facility] Urine blood detectionOrdered By: Kathie Powers on 11-10-2024 Urine blood detection 250 /ul High Negative [facility] Urine clarityOrdered By: Tyree Powers on 11-10-2024 Clarity (U) Turbid Clear [facility] Urine color determinationOrd ered By: Kathie Powers on 11-10-2024 Color (U) Brown Yellow [facility] Urine glucose detectionOrder ed By: Kathie Powers on 11-10-2024 Glucose Ql (U) Normal mg/dl Normal [facility] Urine leukocyte esterase det ection by dipstickOrdered By: Kathie Powers on 11-10-2024 Leukocyte esterase Test strip Ql (U) 500 /ul High Negative [facility] Urine pHOrdered By: Kathie garcias on 11-10-2024 pH (U) 6.5 [pH] 5.0 - 8.0 [facility] Urine sediment bacteria coun t by microscopy (number/high power field)Ordered By: Kathie Powers on 11-10-2024 Bacteria LM.HPF (Urine sed) [#/Area] 2 /[HPF] None Seen [facility] Urine specific gravity measu rementOrdered By: Kathie Powers on 11-10-2024 Specific gravity (U) [Rel density] 1.015 1.002-1.030 [facility] Urine urobilinogen measureme ntOrdered By: Kathie Powers on 11-10-2024 Urobilinogen Ql (U) 1 mg/dl High Normal [facility] Urobilinogen Ql (U)Ordered B y: Kathie Powers on 11-10-2024 Urine urobilinogen measurement 1 mg/dl High Normal [facility] White blood cell (WBC) count Ordered By: Kathie Powers on 11-10-2024 WBC (Bld) [#/Vol] 19.6 10*3/uL High 4.4-11.0 [facility] White blood cell (WBC) count 19.6 K/mm3 High 4.4-11.0 [facility] White blood cell countOrdere d By: Kathie Powers on 11-10-2024 White blood cell count 5-10 SEEN /hpf 0-5 [facility] White blood cell count 5-10 SEEN /hpf 0-5 [facility] pH (U)Ordered By: Kathie aguilar on 11-10-2024 Urine pH 6.5 5.0 - 8.0 [facility] Blood manual differential co mment interpretation (narrative result)Ordered By: Kathie Powers on 11-09-2024 Manual differential comment Marco Antonio (Bld) [Interp] SCANNED [facility] Lactic acid measurementOrder ed By: Kathie Powers on 11-09-2024 Lactic acid measurement 2.4 mmol/L High 0.0-2.0 [facility] Manual differential comment Marco Antonio (Bld) [Interp]Ordered By: Kathie Powers on 11-09-2024 Blood manual differential comment interpretation (narrative result) SCANNED [facility] Pathologist review Marco Antonio (Unsp spec) [Interp]Ordered By: Kathie Powers on 11-09-2024 Review by pathologist N/A [facility] Platelet estimateOrdered By: Kathie Powers on 11-09-2024 Platelets LM Ql (Bld) MKD DEC ADEQ [facility] Platelets LM Ql (Bld)Ordered By: Kathie Powers on 11-09-2024 Platelet estimate MKD DEC [facility] Review by pathologistOrdered By: Kathie Powers on 11-09-2024 Pathologist review Marco Antonio (Unsp spec) [Interp] N/A [facility] Venous blood ammonia measure mentOrdered By: Kathie Powers on 11-09-2024 Ammonia (P) [Moles/Vol] 104.0 umol/L High 16-60 [facility] Venous blood ammonia measurement 104.0 umol/L High 16-60 [facility] Lipase measurementOrdered By : Kathie Powers on 11-08-2024 Lipase measurement 94 U/L High 13-75 [facility] Magnesium (Unsp spec) [Mass/ Vol]Ordered By: Kathie Powers on 11-08-2024 Magnesium measurement (mass/volume) 2.4 mg/dL High 1.5-2.2 [facility] Magnesium measurement (mass/ volume)Ordered By: Kathie Powers on 11-08-2024 Magnesium (Unsp spec) [Mass/Vol] 2.4 mg/dL High 1.5-2.2 [facility] Serum phosphorus measurement Ordered By: Kathie Powers on 11-08-2024 Serum phosphorus measurement 1.6 mg/dL Low 2.7-4.5 [facility] Blood polychromasia detectio n by light microscopyOrdered By: Hill Acuña on 11-07-2024 Polychromasia LM Ql (Bld) 1+ [facility] Blood polychromasia detection by light microscopy 1+ [facility] Ovalocyte detectionOrdered B y: Hill Acuña on 11-07-2024 Ovalocytes LM Ql (Bld) 1+ [facility] Band form neutrophils/100 WB C (Bld)Ordered By: Hill Acuña on 11-03-2024 Blood band neutrophil count as percentage of total leukocytes 6 % High 0-5 [facility] Blood band neutrophil count as percentage of total leukocytesOrdered By: Hill Acuña on 11-03-2024 Band form neutrophils/100 WBC (Bld) 6 % High 0-5 [facility] Blood eosinophils/100 leukoc ytesOrdered By: Hill Acuña on 11-03-2024 Eosinophils/100 WBC (Bld) 1 % 0-5 [facility] Blood lymphocytes/100 leukoc ytesOrdered By: Hill Acuña on 11-03-2024 Lymphocytes/100 WBC (Bld) 2 % Low 19-41 [facility] Blood lymphocytes/100 leukocytes 2 % 0-10 [facility] Blood metamyelocytes/100 bri kocytesOrdered By: Hill Acuña on 11-03-2024 Metamyelocytes/100 WBC (Bld) 1 % 0-1 [facility] Blood metamyelocytes/100 leukocytes 1 % 0-5 [facility] Blood monocytes/100 leukocyt esOrdered By: Hill Acuña on 11-03-2024 Monocytes/100 WBC (Bld) 2 % 0-10 [facility] Blood segmented neutrophils/ 100 leukocytesOrdered By: Hill Acuña on 11-03-2024 Segmented neutrophils/100 WBC (Bld) 85 % High 47-70 [facility] Cells counted Molgen (Bld/Ti ss) [#]Ordered By: Hill Acuña on 11-03-2024 Total cell count 100 MANUAL DIFF [facility] Segmented neutrophils/100 WB C (Bld)Ordered By: Hill Acuña on 11-03-2024 Blood segmented neutrophils/100 leukocytes 85 % High 47-70 [facility] Total cell countOrdered By: Hill Acuña on 11-03-2024 Cells counted Molgen (Bld/Tiss) [#] 100 MANUAL DIFF [facility] Erythrocyte morphology asses smentOrdered By: Hill Acuña on 11-02-2024 RBC morphology finding Nom (Bld) NORM C+C NORMAL NORM C&C [facility] RBC morphology finding Nom ( Bld)Ordered By: Hill Acuña on 11-02-2024 Erythrocyte morphology assessment NORM C+C NORMAL NORM C&C [facility] Trough vancomycin levelOrder ed By: Buster Fuchs on 11-01-2024 Vancomycin trough [Mass/Vol] 17.7 ug/mL High 5.0-15.0 [facility] Vancomycin trough [Mass/Vol] Ordered By: Buster Fuchs on 11-01-2024 Trough vancomycin level 17.7 ug/mL High 5.0-15.0 [facility] Activated partial thrombopla stin time (aPTT) in platelet poor plasma by coagulation aOrdered By: Buster Fuchs on 10-31-2024 aPTT Coag (PPP) [Time] 42.7 s High 24.1-36.2 [facility] aPTT Coag (PPP) [Time]Ordere d By: Buster Fuchs on 10-31-2024 Activated partial thromboplastin time (aPTT) in platelet poor plasma by coagulation a 42.7 Seconds High 24.1-36.2 [facility] C. difficile Ql (Stl)Ordered By: Hill Wright on 10-30-2024 Stool Clostridium difficile detection Toxigenic C. difficile Abnormal [facility] Clostridium difficile detect ion by polymerase chain reactionOrdered By: Hill Wright on 10-30-2024 C. difficile DNA ANANTH+probe Ql (Unsp spec) [facility] Stool Clostridium difficile detectionOrdered By: Hill Wright on 10-30-2024 C. difficile Ql (Stl) Toxigenic C. difficile Abnormal [facility] Stool lactoferrin detection by immunoassayOrdered By: Hill Wright on 10-30-2024 Lactoferrin IA Ql (Stl) [facility] Arterial patency Wrist arter y --pre arterial punctureOrdered By: Buster Fuchs on 10-29-2024 Assessment of wrist artery patency prior to arterial puncture Positive [facility] Assessment of wrist artery p atency prior to arterial punctureOrdered By: Buster Fuchs on 10-29-2024 Arterial patency Wrist artery --pre arterial puncture Positive [facility] Base excess Calc (BldV) [Mol es/Vol]Ordered By: Buster Fuchs on 10-29-2024 Blood base excess determination -10 mmol/L [facility]22 [facility] Blood base excess determinat ionOrdered By: Buster Fuchs on 10-29-2024 Base excess Calc (BldV) [Moles/Vol] -10 mmol/L [facility]22 [facility] Blood bicarbonate measuremen tOrdered By: Buster Fuchs on 10-29-2024 HCO3 (Bld) [Moles/Vol] 15.2 mmol/L Low 22-26 [facility] Blood bicarbonate measurement 15.2 mmol/L Low 22-26 [facility] Blood cultureOrdered By: Hugo Wright on 10-29-2024 Bacteria identified Cx Nom (Bld) No growth in 5 days. [facility] Blood culture No growth in 5 days. [facility] Calculated very low density lipoprotein (VLDL) cholesterol measurementOrdered By: Hill Wright on 10-29-2024 Calculated very low density lipoprotein (VLDL) cholesterol measurement 17 mg/dL 5-40 [facility] Calculated very low density lipoprotein (VLDL) cholesterol measurement 17 mg/dL 5-40 [facility] Cholesterol [Mass/Vol]Ordere d By: Hill Wright on 10-29-2024 Serum or plasma cholesterol measurement (mass/volume) 132 mg/dL <201 [facility] Cholesterol in HDL [Mass/Vol ]Ordered By: Hill Wright on 10-29-2024 Serum or plasma cholesterol in HDL measurement (mass/volume) 33 mg/dL Low >40 [facility] Determination of fraction of inspired oxygenOrdered By: Buster Fuchs on 10-29-2024 Determination of fraction of inspired oxygen 21.0 [facility] Electrocardiogram reportOrde red By: Jeovanny Ramos on 10-29-2024 EKG study [facility] Other Phone: LDL calc ser/plasOrdered By: Hill Wright on 10-29-2024 Cholesterol in LDL [Mass/Vol] 83 mg/dL [facility] Measurement, pHOrdered By: Stacy Fuchs on 10-29-2024 pH (Unsp spec) 7.39 [pH] 7.35-7.45 [facility] No Panel InformationOrdered By: Buster Fuchs on 10-29-2024 ART [facility] L Radial [facility] Not entered [facility] Room Air [facility] No Panel InformationOrdered By: Hill Wright on 10-29-2024 10.20 ug/dL 6.02-18.40 [facility] Osmolality, serumOrdered By: Hill Wright on 10-29-2024 Osmolality, serum 292 mOsm/KG 275-295 [facility] Oxygen saturation measuremen tOrdered By: Buster Fuchs on 10-29-2024 Oxygen saturation measurement 93 % Low 95-99 [facility] Partial pressure of carbon d ioxide measurementOrdered By: Buster Fuchs on 10-29-2024 Partial pressure of carbon dioxide measurement 25.1 mmHg Low 35-45 [facility] Partial pressure of oxygen m easurementOrdered By: Buster Fuchs on 10-29-2024 Partial pressure of oxygen measurement 67 mmHG Low 75-100 [facility] Screening total cholesterol/ high density lipoprotein (HDL) cholesterol ratioOrdered By: Hill Wright on 10-29-2024 Screening total cholesterol/high density lipoprotein (HDL) cholesterol ratio 4.04 [facility] Serum or plasma cholesterol in HDL measurement (mass/volume)Ordered By: Hill Wright on 10-29-2024 Cholesterol in HDL [Mass/Vol] 33 mg/dL Low >40 [facility] Serum or plasma cholesterol measurement (mass/volume)Ordered By: Hill Wright on 10-29-2024 Cholesterol [Mass/Vol] 132 mg/dL <201 [facility] Total carbon dioxide measure mentOrdered By: Buster Fuchs on 10-29-2024 CO2 [Moles/Vol] 16 mmol/L [facility] Total carbon dioxide measurement 16 mmol/L [facility] Triglycerides measurementOrd ered By: Hill Wright on 10-29-2024 Triglycerides measurement 83 mg/dL [facility] Urine cultureOrdered By: Viraj Dunn on 10-29-2024 Bacteria identified Cx Nom (U) Culture exhibits no growth. [facility] Urine culture Culture exhibits no growth. [facility] pH (Unsp spec)Ordered By: Marianna Fuchs on 10-29-2024 Measurement, pH 7.39 7.35-7.45 [facility] Absolute neutrophil countOrd ered By: Alber Dunn on 10-28-2024 Neutrophils (Bld) [#/Vol] 19.0 10*3/uL High 2.0-7.7 [facility] Amorphous sediment LM Ql (Ur ine sed)Ordered By: Alber Dunn on 10-28-2024 Amorphous sediment detection in urine sediment by light microscopy 1+ URATE [facility] Amorphous sediment detection in urine sediment by light microscopyOrdered By: Alber Dunn on 10-28-2024 Amorphous sediment LM Ql (Urine sed) 1+ URATE [facility] Anion gap in Serum or Plasma Ordered By: Alber Dunn on 10-28-2024 Anion gap [Moles/Vol] 17 mmol/L High 5-15 [facility] BUN/creatinine ratioOrdered By: Alber Dunn on 10-28-2024 Urea nitrogen/Creatinine [Mass ratio] 18.8 mg/mg 10-20 [facility] Basophil percentageOrdered B y: Alber Dunn on 10-28-2024 Basophils/100 WBC (Bld) 0.2 % 0-1 [facility] Bilirubin Test strip Ql (U)O rdered By: Alber Dunn on 10-28-2024 Bilirubin Ql (U) 1 mg/dL High Negative [facility] Comment on above: COLOR OF URINE MAY A FFECT DIPSTICK RESULTS. Bilirubin, totalOrdered By: Alber Dunn on 10-28-2024 Bilirubin [Mass/Vol] 1.86 mg/dL High 0.00-1.30 [facility] Carbon dioxide, total [Moles /volume] in Central venous bloodOrdered By: Alber Dunn on 10-28-2024 CO2 [Moles/Vol] 12.4 mmol/L Low 21.0-32.0 [facility] Chloride assayOrdered By: Hernesto Dunn on 10-28-2024 Chloride [Moles/Vol] 98 mmol/L 98-108 [facility] Eosinophil percentageOrdered By: Alber Dunn on 10-28-2024 Eosinophils/100 WBC (Bld) 1.4 % 0-5 [facility] Epithelial cells.squamous LM Ql (Urine sed)Ordered By: Alber Dunn on 10-28-2024 Epithelial cells.squamous LM.HPF (Urine sed) [#/Area] 5 /[HPF] 0-5 [facility] Erythrocyte distribution wid th ratioOrdered By: Alber Dunn on 10-28-2024 Erythrocyte distribution width (RBC) [Ratio] 19.1 % High 11.6-14.6 [facility] Erythrocyte distribution wid th standard deviationOrdered By: Alber Dunn on 10-28-2024 Erythrocyte distribution width (RBC) [Entitic vol] 62.7 fL High 35.1-43.9 [facility] GFR/1.73 sq M.predicted niki g non-blacks MDRD (S/P/Bld) [Vol rate/Area]Ordered By: Alber Dunn on 10-28-2024 Estimated GFR (MDRD) Non-Af Amer 62 >60 [facility] Comment on above: mL/min/1.73m2 CKD-EP I Creatinine Equation (2020) Glucose Ql (U)Ordered By: Hernesto Dunn on 10-28-2024 Glucose (U) [Mass/Vol] 50 mg/dL High Normal [facility] HbA1c (Bld) [Mass fraction]O rdered By: Hill Wright on 10-28-2024 Hemoglobin A1c percentage 6.7 % >5.7 [facility] Hematocrit Auto (Bld) [Volum e fraction]Ordered By: Alber Dunn on 10-28-2024 Hematocrit (Bld) [Volume fraction] 37.3 % Low 40-54 [facility] Hemoglobin A1c percentageOrd ered By: Hill Wright on 10-28-2024 HbA1c (Bld) [Mass fraction] 6.7 % >5.7 [facility] Hemoglobin measurementOrdere d By: Alber Dunn on 10-28-2024 Hemoglobin (Bld) [Mass/Vol] 12.7 g/dL Low 13.0-16.5 [facility] Immature granulocytes/100 WB C Auto (Bld)Ordered By: Alber Dunn on 10-28-2024 Immature granulocytes/100 WBC (Bld) 1.400 % High 0.0-0.9 [facility] Comment on above: IG% - Immature Granu locytes (promyelocytes, myelocytes and metamyelocytes) > 1% indicates that a LEFT SHIFT is Present. Ketones Test strip Ql (U)Ord ered By: Alber Dunn on 10-28-2024 Ketones Ql (U) 5 mg/dl High Negative [facility] Laboratory - Chemistry and C hemistry - challengeOrdered By: Alber Dunn on 10-28-2024 AST [Catalytic activity/Vol] 48 U/L High <38 [facility] Comment on above: Hemolysis present, R esults could be affected. Laboratory - Hematology and Cell countsOrdered By: Alber Dunn on 10-28-2024 Anisocytosis Ql (Bld) RARE [facility] Lactic acid measurementOrder ed By: Alber Dunn on 10-28-2024 Lactate [Moles/Vol] 4.0 mmol/L High 0.0-2.0 [facility] Comment on above: Critical Result(s) C [...] 10-28-2024 Lipase [Catalytic activity/Vol] 45 U/L 13-75 [facility] Comment on above: Please note:LIPASE r evised reference range effective 22. New Lipase methodology. Expected to produce lower values than the previous assay method. NEW Reference Range: 13 - 75 U/L Lymphocytes Auto (Unsp spec) [#/Vol]Ordered By: Alber Dunn on 10-28-2024 Lymphocytes (Bld) [#/Vol] 1.28 10*3/uL 0.83-4.51 [facility] Lymphocytes/100 WBC Auto (Un sp spec)Ordered By: Alber Dunn on 10-28-2024 Lymphocytes/100 WBC (Bld) 5.6 % Low 19-41 [facility] MCV (mean corpuscular volume ) determinationOrdered By: Alber Dunn on 10-28-2024 MCV (RBC) [Entitic vol] 91.2 fL 80-94 [facility] Macrocytes Ql (Bld)Ordered B y: Alber Dunn on 10-28-2024 Macrocytosis RARE [facility] Macrocytes detection RARE [facility] Macrocytes detectionOrdered By: Alber Dunn on 10-28-2024 Macrocytes Ql (Bld) RARE [facility] Manual differential comment Marco Antonio (Bld) [Interp]Ordered By: Alber Dunn on 10-28-2024 Differential Comment SEE COMMENT [facility] Comment on above: MONOCYTOSIS NOTED Mean corpuscular hemoglobin (MCH) determinationOrdered By: Alber Dunn on 10-28-2024 MCH (RBC) [Entitic mass] 31.1 pg 27.0-32.0 [facility] Mean corpuscular hemoglobin concentration (MCHC) determinationOrdered By: Alber Dunn on 10-28-2024 MCHC (RBC) [Mass/Vol] 34.0 g/dL 32-36 [facility] Mean platelet volume determi nationOrdered By: Alber Dunn on 10-28-2024 Platelet mean volume (Bld) [Entitic vol] 12.0 fL 6.2-12.0 [facility] Microscopic analysis of urin e for red blood cells (RBC)Ordered By: Alber Dunn on 10-28-2024 Urine RBC > 100 SEEN /hpf 0-5 [facility] Monocyte percentageOrdered B y: Alber Dunn on 10-28-2024 Monocytes/100 WBC (Bld) 8.4 % 0-10 [facility] Mucus LM Ql (Urine sed)Order ed By: Alber Dnun on 10-28-2024 Mucus Ql (Urine sed) 0 SEEN /hpf [facility] Neutrophil percentageOrdered By: Alber Dunn on 10-28-2024 Neutrophils/100 WBC (Bld) 83.0 % High 47-70 [facility] Nitrite Test strip Ql (U)Ord ered By: Alber Dunn on 10-28-2024 Nitrite Ql (U) Negative Negative [facility] Nucleated red blood cell per centageOrdered By: Alber Dunn on 10-28-2024 Nucleated RBC/100 WBC (Bld) [Ratio] 0 % 0-5 [facility] Osmolality (U) [Osmolality]O rdered By: Hill Wright on 10-28-2024 Osmolality ur 484 mOsm/KG >50 [facility] Osmolality urOrdered By: Hugo Wright on 10-28-2024 Osmolality (U) [Osmolality] 484 mOsm/KG >50 [facility] Ovalocytes LM Ql (Bld)Ordere d By: Alber Dunn on 10-28-2024 Ovalocytes RARE [facility] Pathologist review Marco Antonio (Unsp spec) [Interp]Ordered By: Alber Dunn on 10-28-2024 Differential Pathologist's Review [facility] Platelet countOrdered By: Hernesto Dunn on 10-28-2024 Platelets (Bld) [#/Vol] 142 10*3/uL Low 150-450 [facility] Platelets LM Ql (Bld)Ordered By: Alber Dunn on 10-28-2024 Platelet Estimate ADEQUATE ADEQ [facility] Potassium (Unsp spec) [Mass/ Vol]Ordered By: Alber Dunn on 10-28-2024 Potassium [Moles/Vol] 4.5 mmol/L 3.3-5.1 [facility] Comment on above: Hemolysis present, R esults could be affected. Protein Test strip Ql (U)Ord ered By: Alber Dunn on 10-28-2024 Protein Ql (U) 500 mg/dl High Negative [facility] RBC Auto (Bld) [#/Vol]Ordere d By: Alber Dunn on 10-28-2024 RBC (Bld) [#/Vol] 4.09 10*6/uL Low 4.6-6.2 [facility] RBC morphology finding Nom ( Bld)Ordered By: Alber Dunn on 10-28-2024 Red Blood Cell Morphology N CHROM NORMAL NORM C&C [facility] Serum creatinine measurement (mass/volume)Ordered By: Alber Dunn on 10-28-2024 Creatinine [Mass/Vol] 1.33 mg/dL High 0.70-1.20 [facility] Serum globulin measurementOr dered By: Alber Dunn on 10-28-2024 Globulin (S) [Mass/Vol] 3.4 g/dL 2.2-4.2 [facility] Serum glucose measurement (m ass/volume)Ordered By: Alber Dunn on 10-28-2024 Glucose [Mass/Vol] 338 mg/dL High 70-99 [facility] Serum or plasma alanine thomas otransferase (ALT) measurementOrdered By: Alber Dunn on 10-28-2024 ALT [Catalytic activity/Vol] 23 U/L <47 [facility] Serum or plasma albumin roosevelt urement (mass/volume)Ordered By: Alber Dunn on 10-28-2024 Albumin [Mass/Vol] 2.5 g/dL Low 3.5-5.0 [facility] Serum or plasma albumin/glob ulin mass ratioOrdered By: Alber Dunn on 10-28-2024 Albumin/Globulin [Mass ratio] 0.7 {ratio} Low 0.9-2.4 [facility] Serum or plasma alkaline kendrick sphatase measurementOrdered By: Alber Dunn on 10-28-2024 ALP [Catalytic activity/Vol] 274 U/L High 40-129 [facility] Serum or plasma calcium roosevelt urement (mass/volume)Ordered By: Alber Dunn on 10-28-2024 Calcium [Mass/Vol] 9.2 mg/dL 7.6-11.0 [facility] Serum or plasma urea nitroge n measurement (mass/volume)Ordered By: Alber Dunn on 10-28-2024 Urea nitrogen [Mass/Vol] 25 mg/dL High 4-19 [facility] Sodium levelOrdered By: Alber Dunn on 10-28-2024 Sodium [Moles/Vol] 128 mmol/L Low 133-145 [facility] Total proteinOrdered By: Viraj Dunn on 10-28-2024 Protein [Mass/Vol] 5.9 g/dL 5.9-8.4 [facility] Urine blood detectionOrdered By: Alber Dunn on 10-28-2024 Urine Occult Blood 250 /ul High Negative [facility] Urine clarityOrdered By: Viraj Dunn on 10-28-2024 Clarity (U) Cloudy Clear [facility] Urine color determinationOrd ered By: Alber Dunn on 10-28-2024 Color (U) Red Yellow [facility] Urine leukocyte esterase det ection by dipstickOrdered By: Alber Dunn on 10-28-2024 Leukocyte esterase Test strip Ql (U) 500 /ul High Negative [facility] Urine pHOrdered By: Alber Khalil ghisai on 10-28-2024 pH (U) 6.5 [pH] 5.0 - 8.0 [facility] Urine sediment bacteria coun t by microscopy (number/high power field)Ordered By: Alber Dunn on 10-28-2024 Bacteria LM.HPF (Urine sed) [#/Area] 1 /[HPF] None Seen [facility] Urine specific gravity measu rementOrdered By: Alber Dunn on 10-28-2024 Specific gravity (U) [Rel density] 1.015 1.002-1.030 [facility] Urobilinogen Ql (U)Ordered B y: Alber Dunn on 10-28-2024 Urine Urobilinogen Normal mg/dl Normal [facility] White blood cell (WBC) count Ordered By: Alber Dunn on 10-28-2024 WBC (Bld) [#/Vol] 22.9 10*3/uL High 4.4-11.0 [facility] White blood cell countOrdere d By: Alber Dunn on 10-28-2024 Urine WBC >100 SEEN /hpf 0-5 [facility] APTTon 10-04-2024 aPTT Coag (PPP) [Time] 40 s High [facility] Albuminon 10-04-2024 Albumin (Body fld) [Mass/Vol] <0.5 Normal Not established [facility] Comment on above: Order Comment: Venip uncture immediately after or during the administration of Metamizole may lead to falsely low results. Testing should be performed immediately prior to Metamizole dosing. Performed By: #### 2 524-7 #### GOMES ALYSSA ([id number]) [facility] ([facility]) [address] [place] [address] Bacteria identifiedon 2024 Bacteria identified Cx Nom (Body fld) Test: Sterile Fluid Culture/Smear Specimen Source: Pleural Specimen Type: Fluid Specimen Date: 10/04/20241713 Result Date: 10/08/2024824 Result Status: Final result Resulting Lab: [facility] [id number] [facility] [address] CULTURE No growth aerobically and anaerobically STAIN (1+) Rare Polymorphonuclear leukocytes No organisms seen Normal [facility] Comment on above: Performed By: #### 2 524-7 #### GOMES ALYSSA ([id number]) [facility] ([facility]) [address] [place] [address] Basic metabolic 2000 panelon 10-04-2024 Anion gap [Moles/Vol] 8 mmol/L Low 10 - 2 0 mmol/L [facility] Calcium [Mass/Vol] 8.1 mg/dL Low 8.6 - 10. 3 mg/dL [facility] Chloride [Moles/Vol] 109 mmol/L High 98 - 10 7 mmol/L [facility] CO2 [Moles/Vol] 24 mmol/L 21 - 32 mmol/L [facility] Creatinine [Mass/Vol] 0.73 mg/dL 0.50 - 1.30 mg/dL [facility] eGFR - PINF [facility] Comment on above: Calculations of patric mated GFR are performed using the 2020 CKD-EPI Study Refit equation without the race variable for the IDMS-Traceable creatinine methods. https://jasn.asnjournals.org/content/early//ASN.2020 614057 Glucose [Mass/Vol] 197 mg/dL High 74 - 99 mg/dL [facility] Potassium [Moles/Vol] 3.9 mmol/L 3.5 - 5.3 mmol/L [facility] Sodium [Moles/Vol] 137 mmol/L 136 - 145 mmol/L [facility] Urea nitrogen [Mass/Vol] 17 mg/dL 6 - 23 mg/dL [facility] Anion gap [Moles/Vol] 8 mmol/L Low 10-20 [facility] Comment on above: Performed By: #### 2 4321-2 #### MIREYA SHAH ([id number]) [facility] ([facility]) [address] [place] [address] Calcium [Mass/Vol] 8.1 mg/dL Low 8.6-10.3 [facility] Comment on above: Performed By: #### 2 4321-2 #### MIREYA SHAH ([id number]) [facility] ([facility]) [address] [place] [id number] Chloride [Moles/Vol] 109 mmol/L High 98-107 [facility] Comment on above: Performed By: #### 2 4321-2 #### MIREYA SHAH ([id number]) [facility] ([facility]) [address] [place] [address] 11585 CO2 [Moles/Vol] 24 mmol/L Normal 21-32 [facility] Comment on above: Performed By: #### 2 4321-2 #### MIREYA SHAH ([id number]) [facility] ([facility]) [address] [place] [address] 88009 Creatinine [Mass/Vol] 0.73 mg/dL Normal 0.50-1.30 [facility] Comment on above: Performed By: #### 2 4321-2 #### MIREYA SHAH ([id number]) [facility] ([facility]) [address] [place] [address] 49910 GFR/1.73 sq M.predicted MDRD (S/P/Bld) [Vol rate/Area] mL/min/{1.73_m2} Normal >60 [facility] Comment on above: Result Comment: Calc ulations of estimated GFR are performed using the 2020 CKD-EPI Study Refit equation without the race variable for the IDMS-Traceable creatinine methods. https://jasn.asnjournals.org/content//ASN.2020 158306 Performed By: #### 2 4321-2 #### MIREYA SHAH ([id number]) [facility] ([facility]) [address] [place] [address] 04332 Glucose [Mass/Vol] 197 mg/dL High 74-99 [facility] Comment on above: Performed By: #### 2 4321-2 #### MIREYA SHAH ([id number]) [facility] ([facility]) [address] [place] [address] 34387 Potassium [Moles/Vol] 3.9 mmol/L Normal 3.5-5.3 [facility] Comment on above: Performed By: #### 2 4321-2 #### MIREYA SHAH ([id number]) [facility] ([facility]) [address] [place] [address] 84882 Sodium [Moles/Vol] 137 mmol/L Normal 136-145 [facility] Comment on above: Performed By: #### 2 4321-2 #### MIREYA SHAH ([id number]) [facility] ([facility]) [address] [place] [address] 08120 Urea nitrogen [Mass/Vol] 17 mg/dL Normal 6-23 [facility] Comment on above: Performed By: #### 2 4321-2 #### MIREYA SHAH ([id number]) [facility] ([facility]) [address] [place] [address] 04969 CBC W Auto Differential pane l (Bld)on 10-04-2024 Basophils (Bld) [#/Vol] 0.02 10*3/uL [facility] Basophils/100 WBC (Bld) 0.4 % 0.0 - 2.0 % [facility] Eosinophils (Bld) [#/Vol] 0.15 10*3/uL [facility] Eosinophils/100 WBC (Bld) 2.7 % 0.0 - 6.0 % [facility] Erythrocyte distribution width (RBC) [Ratio] 22.1 % High 11.5 - 14.5 % [facility] Hematocrit (Bld) [Volume fraction] 29.8 % Low 41.0 - 52.0 % [facility] Hemoglobin (Bld) [Mass/Vol] 9.3 g/dL Low 13.5 - 17.5 g/dL [facility] Immature granulocytes (Bld) [#/Vol] 0.01 10*3/uL [facility] Immature granulocytes/100 WBC (Bld) 0.2 % 0.0 - 0.9 % [facility] Comment on above: Immature Granulocyte Count (IG) includes promyelocytes, myelocytes and metamyelocytes but does not include bands. Percent differential counts (%) should be interpreted in the context of the absolute cell counts (cells/UL). Interpretation and review of laboratory results Abnormal [facility] Lymphocytes (Bld) [#/Vol] 0.64 10*3/uL Low [facility] Lymphocytes/100 WBC (Bld) 11.5 % 13.0 - 44.0 % [facility] MCH (RBC) [Entitic mass] 30 pg 26.0 - 34.0 pg [facility] MCHC (RBC) [Mass/Vol] 31.2 g/dL Low 32.0 - 36.0 g/dL [facility] MCV (RBC) [Entitic vol] 96 fL 80 - 100 fL [facility] Monocytes (Bld) [#/Vol] 0.46 10*3/uL [facility] Monocytes/100 WBC (Bld) 8.3 % 2.0 - 10.0 % [facility] Neutrophils (Bld) [#/Vol] 4.28 10*3/uL [facility] Comment on above: Percent differential counts (%) should be interpreted in the context of the absolute cell counts (cells/uL). Neutrophils/100 WBC (Bld) 76.9 % 40.0 - 80.0 % [facility] Nucleated RBC/100 WBC (Bld) [Ratio] 0 % [facility] Platelets (Bld) [#/Vol] 65 10*3/uL Low U [facility] RBC (Bld) [#/Vol] 3.1 10*6/uL Low [facility] WBC (Bld) [#/Vol] 5.6 10*3/uL [facility] Basophils (Bld) [#/Vol] 0.02 x10*3/uL Normal 0.00-0.10 [facility] Comment on above: Performed By: #### 5 7021-8 #### MIREYA SHAH ([id number]) [facility] ([facility]) [address] [place] [address] 10350 Basophils/100 WBC (Bld) 0.4 % Normal 0.0-2.0 [facility] Comment on above: Performed By: #### 5 7021-8 #### MIREYA SHAH ([id number]) [facility] ([facility]) [address] [place] [address] 72713 Eosinophils (Bld) [#/Vol] 0.15 x10*3/uL Normal 0.00-0.70 [facility] Comment on above: Performed By: #### 5 7021-8 #### MIREYA SHAH ([id number]) [facility] ([facility]) [address] [place] [address] 13035 Eosinophils/100 WBC (Bld) 2.7 % Normal 0.0-6.0 [facility] Comment on above: Performed By: #### 5 7021-8 #### MIREYA SHAH ([id number]) [facility] ([facility]) [address] [place] [address] 86647 Erythrocyte distribution width (RBC) [Ratio] 22.1 % High 11.5-14.5 [facility] Comment on above: Performed By: #### 5 7021-8 #### MIREYA SHAH ([id number]) [facility] ([facility]) [address] [place] [address] 22075 Hematocrit (Bld) [Volume fraction] 29.8 % Low 41.0-52.0 [facility] Comment on above: Performed By: #### 5 7021-8 #### MIREYA SHAH ([id number]) [facility] ([facility]) [address] [place] [address] 38693 Hemoglobin (Bld) [Mass/Vol] 9.3 g/dL Low 13.5-17.5 [facility] Comment on above: Performed By: #### 5 7021-8 #### MIREYA SHAH ([id number]) [facility] ([facility]) [address] [place] [address] 06903 Immature granulocytes (Bld) [#/Vol] 0.01 x10*3/uL Normal 0.00-0.70 [facility] [place] Comment on above: Performed By: #### 5 7021-8 #### MIREYA SHAH ([id number]) [facility] ([facility]) [address] [place] [address] 03744 Immature granulocytes/100 WBC (Bld) 0.2 % Normal 0.0-0.9 [facility] Comment on above: Result Comment: Danielle ture Granulocyte Count (IG) includes promyelocytes, myelocytes and metamyelocytes but does not include bands. Percent differential counts (%) should be interpreted in the context of the absolute cell counts (cells/UL). Performed By: #### 5 7021-8 #### MIREYA SHAH ([id number]) [facility] ([facility]) [address] [place] [address] 72698 Lymphocytes (Bld) [#/Vol] 0.64 x10*3/uL Low 1.20-4.80 [facility] Comment on above: Performed By: #### 5 7021-8 #### MIREYA SHAH ([id number]) [facility] ([facility]) [address] [place] [address] 01893 Lymphocytes/100 WBC (Bld) 11.5 % Normal 13.0-44.0 [facility] Comment on above: Performed By: #### 5 7021-8 #### MIREYA SHAH ([id number]) [facility] ([facility]) [address] [place] [address] 06691 MCH (RBC) [Entitic mass] 30.0 pg Normal 26.0-34.0 [facility] Comment on above: Performed By: #### 5 7021-8 #### MIREYA SHAH ([id number]) [facility] ([facility]) [address] [place] [address] 21202 MCHC (RBC) [Mass/Vol] 31.2 g/dL Low 32.0-36.0 [facility] Comment on above: Performed By: #### 5 7021-8 #### MIREYA SHAH ([id number]) [facility] ([facility]) [address] [place] [address] 42789 MCV (RBC) [Entitic vol] 96 fL Normal 80-100 U [facility] Comment on above: Performed By: #### 5 7021-8 #### MIREYA SHAH ([id number]) [facility] ([facility]) [address] [place] [address] 23013 Monocytes (Bld) [#/Vol] 0.46 x10*3/uL Normal 0.10-1.00 [facility] Comment on above: Performed By: #### 5 7021-8 #### MIREYA SHAH ([id number]) [facility] ([facility]) [address] [place] [address] 62573 Monocytes/100 WBC (Bld) 8.3 % Normal 2.0-10.0 [facility] Comment on above: Performed By: #### 5 7021-8 #### MIREYA SHAH ([id number]) [facility] ([facility]) [address] [place] [address] 27444 Neutrophils (Bld) [#/Vol] 4.28 x10*3/uL Normal 1.20-7.70 [facility] Comment on above: Result Comment: Perc ent differential counts (%) should be interpreted in the context of the absolute cell counts (cells/uL). Performed By: #### 5 7021-8 #### MIREYA SHAH ([id number]) [facility] ([facility]) [address] [place] [address] 10329 Neutrophils/100 WBC (Bld) 76.9 % Normal 40.0-80.0 [facility] Comment on above: Performed By: #### 5 7021-8 #### MIREYA SHAH ([id number]) [facility] ([facility]) [address] [place] [address] 85435 Nucleated RBC/100 WBC (Bld) [Ratio] 0.0 /100 WBCs Normal 0.0-0.0 [facility] Comment on above: Performed By: #### 5 7021-8 #### MIREYA SHAH ([id number]) [facility] ([facility]) [address] [place] [address] Platelets (Bld) [#/Vol] 65 x10*3/uL Low 150-450 [facility] Comment on above: Performed By: #### 5 7021-8 #### MIREYA SHAH ([id number]) [facility] ([facility]) [address] [place] [address] RBC (Bld) [#/Vol] 3.10 x10*6/uL Low 4.50-5.90 [facility] Comment on above: Performed By: #### 5 7021-8 #### MIREYA SHAH ([id number]) [facility] ([facility]) [address] [place] [address] WBC (Bld) [#/Vol] 5.6 x10*3/uL Normal 4.4-11.3 [facility] Comment on above: Performed By: #### 5 7021-8 #### MIREYA SHAH ([id number]) [facility] ([facility]) [address] [place] [address] CT ABDOMEN PELVIS W IV CONTR [place] 10-04-2024 CT ABDOMEN PELVIS W IV CONTRAST Interpreted By: Yohana Huang, STUDY: CT ABDOMEN PELVIS W IV CONTRAST; 10/04/2024 2:16 pm INDICATION: Signs/Symptoms:generaliz ed abdominal pain, hx of cirrhosis, recent paracentesis. COMPARISON: None. ACCESSION NUMBER(S): [id number] ORDERING CLINICIAN: SRIRAM OLEARY TECHNIQUE: CT of [...] Yohana Huang 10/04/2024 2:28 PM Dictation workstation: [id number] [facility] CT Abdomen and Pelvis W cont rast Jamari 10-04-2024 Coronary artery calcifications. Anasarca. Ascites. Small irregular liver consistent with cirrhosis. Extensive collateral vessels. Enlarged spleen. Ventral and inguinal hernias containing ascitic fluid. MACRO: none Signed by: Yohana Huang 10/04/2024 2:28 PM Dictation workstation: [id number] Interpreted By: Yohana Chen, STUDY: CT ABDOMEN PELVIS W IV CONTRAST; 10/04/2024 2:16 pm INDICATION: Signs/Symptoms:generaliz ed abdominal pain, hx of cirrhosis, recent paracentesis. COMPARISON: None. ACCESSION NUMBER(S): [id number] ORDERING CLINICIAN: SRIRAM OLEARY TECHNIQUE: CT of [...] cirrhosis, recent paracentesis. COMPARISON: None. ACCESSION NUMBER(S): [id number] ORDERING CLINICIAN: SRIRAM OLEARY TECHNIQUE: CT of [...] Yohana Huang 10/04/2024 2:28 PM Dictation workstation: [id number] [facility] Work Phone: Radiology Study observation (narrative) [facility] Work Phone: CT Abdomen and Pelvis W cont rast IVOrdered By: Yohana Huang on 10-04-2024 [facility] Work Phone: Cell count panel (Body fld)O rdered By: Fortino Mcgee on 10-04-2024 Clarity (Body fld) Hazy Abnormal Clear [facility] Color (Body fld) Straw Colorless, Straw, Yellow [facility] Interpretation and review of laboratory results Abnormal [facility] RBC Auto (Body fld) [#/Vol] 2000 /uL see comment [facility] WBC (Body fld) [#/Vol] 0.058 10*3/uL See Commen t [facility] Body Fluid cell coun t reference ranges have not been established by [facility]. Reference ranges provided are based on published references. [facility] Cell count panel (Body fld)o n 10-04-2024 Clarity (Body fld) Hazy Abnormal Clear [facility] Comment on above: Order Comment: Body Fluid cell count reference ranges have not been established by [facility]. Reference ranges provided are based on published references. Performed By: #### 3 4556-1 #### MIREYA SHAH ([id number]) [facility] ([facility]) [address] [place] [address] Color (Body fld) Straw Normal Colorless, Straw, Yellow [facility] Comment on above: Order Comment: Body Fluid cell count reference ranges have not been established by [facility]. Reference ranges provided are based on published references. Performed By: #### 3 4556-1 #### MIREYA SHAH ([id number]) [facility] ([facility]) [address] [place] [address] RBC Auto (Body fld) [#/Vol] 2000 /uL Normal see comment [facility] Comment on above: Order Comment: Body Fluid cell count reference ranges have not been established by [facility]. Reference ranges provided are based on published references. Performed By: #### 3 4556-1 #### MIREYA SHAH ([id number]) [facility] ([facility]) [address] [place] [address] WBC (Body fld) [#/Vol] 0.058 10*3/uL Normal See Commevelin t [facility] [place] Comment on above: Order Comment: Body Fluid cell count reference ranges have not been established by [facility]. Reference ranges provided are based on published references. Performed By: #### 3 4556-1 #### MIREYA SHAH ([id number]) [facility] ([facility]) [address] [place] [address] Coagulation surface inducedo n 10-04-2024 aPTT Coag (PPP) [Time] 40 s High 26-36 Un [facility] Comment on above: Order Comment: The A PTT is no longer used for monitoring Unfractionated Heparin Therapy. For monitoring Heparin Therapy, use the Heparin Assay. Performed By: #### 1 4979-9 #### MIREYA SHAH ([id number]) [facility] ([facility]) [address] [place], [place] [id number] Coagulation tissue factor in ducedon 10-04-2024 PT Coag (PPP) [Time] 23.6 s High 9.8-12.4 [facility] Comment on above: Performed By: #### 5 902-2 #### MIREYA SHAH ([id number]) [facility] ([facility]) [address] [place] [address] Differential panel (Body fld )on 10-04-2024 Basophils/100 WBC (Body fld) 0 % not established [facility] Blasts/100 WBC Manual cnt (Body fld) 0 % not established [facility] Cells Counted Total (Body fld) [#] 100 [facility] Eosinophils/100 WBC Manual cnt (Body fld) 0 % see comment [facility] Immature Granulocytes %, Manual, Fluid 0 % not established [facility] Interpretation and review of laboratory results Abnormal [facility] Lymphocytes/100 WBC Manual cnt (Body fld) 19 % see comment [facility] Monocytes+Macrophages/1 00 WBC Manual cnt (Body fld) 17 % see comment [facility] Neutrophils/100 WBC (Body fld) 40 % see comment [facility] Other cells/100 WBC Manual cnt (Body fld) 24 % High not established [facility] Comment on above: Mesothelial cells no tianna by tech Plasma cells/100 WBC Manual cnt (Body fld) 0 % not established [facility] Body Fluid cell differential reference ranges have not been established by [facility]. Reference ranges provided are based on published references. [facility] Basophils/100 WBC (Body fld) 0 % Normal not established [facility] Comment on above: Order Comment: Body Fluid cell differential reference ranges have not been established by [facility]. Reference ranges provided are based on published references. Performed By: #### 2 9580-8 #### MIREYA SHAH ([id number]) [facility] ([facility]) [address] [place] [address] Blasts/100 WBC Manual cnt (Body fld) 0 % Normal not established [facility] Comment on above: Order Comment: Body Fluid cell differential reference ranges have not been established by [facility]. Reference ranges provided are based on published references. Performed By: #### 2 9580-8 #### MIREYA SHAH ([id number]) [facility] ([facility]) [address] [place] [address] Cells Counted Total (Body fld) [#] 100 Normal [facility] Comment on above: Order Comment: Body Fluid cell differential reference ranges have not been established by [facility]. Reference ranges provided are based on published references. Performed By: #### 2 9580-8 #### MIREYA SHAH ([id number]) [facility] ([facility]) [address] [place] [address] 01705 Eosinophils/100 WBC Manual cnt (Body fld) 0 % Normal see comment [facility] Comment on above: Order Comment: Body Fluid cell differential reference ranges have not been established by [facility]. Reference ranges provided are based on published references. Performed By: #### 2 9580-8 #### MIREYA SHAH ([id number]) [facility] ([facility]) [address] [place] [address] 63496 IMMATURE GRANULOCYTES IN FLUID 0 % Normal not established [facility] Comment on above: Order Comment: Body Fluid cell differential reference ranges have not been established by [facility]. Reference ranges provided are based on published references. Performed By: #### 2 9580-8 #### MIREYA SHAH ([id number]) [facility] ([facility]) [address] [place] [address] 89945 Lymphocytes/100 WBC Manual cnt (Body fld) 19 % Normal see comment [facility] Comment on above: Order Comment: Body Fluid cell differential reference ranges have not been established by [facility]. Reference ranges provided are based on published references. Performed By: #### 2 9580-8 #### MIREYA SHAH ([id number]) [facility] ([facility]) [facility] [place] [address] Monocytes+Macrophages/1 00 WBC Manual cnt (Body fld) 17 % Normal see comment [facility] Comment on above: Order Comment: Body Fluid cell differential reference ranges have not been established by [facility]. Reference ranges provided are based on published references. Performed By: #### 2 9580-8 #### MIREYA SHAH ([id number]) [facility] ([facility]) [address] [place] [address] 52617 Neutrophils/100 WBC (Body fld) 40 % Normal see comment [facility] Comment on above: Order Comment: Body Fluid cell differential reference ranges have not been established by [facility]. Reference ranges provided are based on published references. Performed By: #### 2 9580-8 #### MIREYA SHAH ([id number]) [facility] ([facility]) [address] [place] [address] 84042 Other cells/100 WBC Manual cnt (Body fld) 24 % High not established [facility] Comment on above: Order Comment: Body Fluid cell differential reference ranges have not been established by [facility]. Reference ranges provided are based on published references. Result Comment: Meso thelial cells noted by tech Performed By: #### 2 9580-8 #### MIREYA SHAH ([id number]) [facility] ([facility]) [address] [place] [address] 16706 Plasma cells/100 WBC Manual cnt (Body fld) 0 % Normal not established [facility] Comment on above: Order Comment: Body Fluid cell differential reference ranges have not been established by [facility]. Reference ranges provided are based on published references. Performed By: #### 2 9580-8 #### MIREYA SHAH ([id number]) [facility] ([facility]) [address] [place] [address] Glucoseon 10-04-2024 Glucose (Body fld) [Mass/Vol] 200 mg/dL Normal Not established [facility] Comment on above: Order Comment: Venip uncture immediately after or during the administration of Metamizole may lead to falsely low results. Testing should be performed immediately prior to Metamizole dosing. Performed By: #### 2 524-7 #### MIREYA SHAH ([id number]) [facility] ([facility]) [address] [place], [place] [id number] Hepatic function 2000 panelo n 10-04-2024 Albumin BCP dye [Mass/Vol] 2.4 g/dL Low 3.4 - 5.0 g/dL [facility] ALP [Catalytic activity/Vol] 212 U/L High 33 - 120 U/L [facility] ALT With P-5'-P [Catalytic activity/Vol] 46 U/L 10 - 52 U/L [facility] Comment on above: Patients treated wit h Sulfasalazine may generate falsely decreased results for ALT. AST With P-5'-P [Catalytic activity/Vol] 49 U/L High 9 - 39 U/L [facility] Bilirubin [Mass/Vol] 1.8 mg/dL High 0.0 - 1 .2 mg/dL [facility] Bilirubin.direct [Mass/Vol] 0.7 mg/dL High 0.0 - 0.3 mg/dL [facility] Protein [Mass/Vol] 5.7 g/dL Low 6.4 - 8.2 g/dL [facility] Albumin BCP dye [Mass/Vol] 2.4 g/dL Low 3.4-5.0 [facility] [place] Comment on above: Performed By: #### 2 5-3 #### MIREYA SHAH ([id number]) [facility] ([facility]) [address] [place] [address] 15286 ALP [Catalytic activity/Vol] 212 U/L High 33-120 [facility] [place] Comment on above: Performed By: #### 2 5-3 #### MIREYA SHAH ([id number]) [facility] ([facility]) [address] [place] [address] 67042 ALT With P-5'-P [Catalytic activity/Vol] 46 U/L Normal 10-52 [facility] [place] Comment on above: Result Comment: Argenis ents treated with Sulfasalazine may generate falsely decreased results for ALT. Performed By: #### 2 5-3 #### MIREYA SHAH ([id number]) [facility] ([facility]) [address] [place] [address] 37294 AST With P-5'-P [Catalytic activity/Vol] 49 U/L High 9-39 [facility] [place] Comment on above: Performed By: #### 2 4325-3 #### MIREYA SHAH ([id number]) [facility] ([facility]) [address] [place] [address] 99004 Bilirubin [Mass/Vol] 1.8 mg/dL High 0.0-1.2 [facility] Comment on above: Performed By: #### 2 4325-3 #### MIREYA SHAH ([id number]) [facility] ([facility]) [address] [place] [address] 98582 Bilirubin.direct [Mass/Vol] 0.7 mg/dL High 0.0-0.3 [facility] [place] Comment on above: Performed By: #### 2 4325-3 #### MIREYA SHAH ([id number]) [facility] ([facility]) [address] [place] [address] 38137 Protein [Mass/Vol] 5.7 g/dL Low 6.4-8.2 [facility] Comment on above: Performed By: #### 2 4325-3 #### MIREYA SHAH ([id number]) [facility] ([facility]) [address] [place] [address] 47971 Lactateon 10-04-2024 Lactate [Moles/Vol] 2 mmol/L 0.4 - 2. 0 mmol/L [facility] Lactate [Moles/Vol] 2.0 mmol/L Normal 0.4-2.0 [facility] Comment on above: Order Comment: Venip uncture immediately after or during the administration of Metamizole may lead to falsely low results. Testing should be performed immediately prior to Metamizole dosing. Performed By: #### 2 524-7 #### MIREYA SHAH ([id number]) [facility] ([facility]) [address] [place] [address] [phone] Lactate [Moles/Vol]on 2024 Interpretation and review of laboratory results Normal [facility] Venipuncture immedia tely after or during the administration of Metamizole may lead to falsely low results. Testing should be performed immediately prior to Metamizole dosing. [facility] Lactate dehydrogenaseon - LDH Lactate to pyruvate reaction (Body fld) [Catalytic activity/Vol] <25 Normal Not established. [facility] [place] Comment on above: Order Comment: Venip uncture immediately after or during the administration of Metamizole may lead to falsely low results. Testing should be performed immediately prior to Metamizole dosing. Performed By: #### 2 524-7 #### GOMES ALYSSA ([id number]) [facility] ([facility]) [address] [place] [address] Lipaseon 10-04-2024 Lipase [Catalytic activity/Vol] 56 U/L 9 - 82 U/L [facility] Lipase [Catalytic activity/V ol]on 10-04-2024 Interpretation and review of laboratory results Normal [facility] Venipuncture immedia tely after or during the administration of Metamizole may lead to falsely low results. Testing should be performed immediately prior to Metamizole dosing. [facility] No Panel Informationon 10-04 Interpretation and review of laboratory results Abnormal [facility] Interpretation and review of laboratory results Abnormal [facility] Non-resident care associate cytology studyon Non-gynecological cytology method study Pathology report.total SEE COMMENT Non-gynecologic Cytology Case: [id number] Authorizing Provider: Joey Huang DO Collected: 10/04/2024 1714 Ordering Location: [facility] Received: 10/05/2024 [address] [facility] Pathologist: Jarvis Guzman MD Specimen: ASCITIC FLUID Path report.final diagnosis SEE COMMENT A. ASCITIC FLUID: - NO MALIGNANT CELLS IDENTIFIED. Note: This case has been evaluated using a concentrated (ThinPrep) preparation. Laboratory comment SEE COMMENT Slide(s) initially screened by ABEL Castro at [facility] [address] [place] [phone] By the signature on this report, the [...] Block) A1-1 Pap Stain NGYN ThinPrep Normal [facility] [place] PT Coag (PPP) [Time]on 10-04 INR Coag (PPP) [Relative time] 2.1 {INR} High 0.9 - 1.1 [facility] INR Coag (PPP) [Relative time] 2.1 High 0.9-1.1 [facility] [place] Comment on above: Performed By: #### 5 902-2 #### MIREYA SHAH ([id number]) [facility] ([facility]) [address] [place] [address] Paracentesison 10-04-2024 Joey Huang DO 10/04/2024 5:18 PM Paracentesis Date/Time: 10/04/2024 5:17 PM Performed by: Joey Huang DO Authorized by: Joey Huang DO Consent: Consent obtained: Written Consent given by: Patient Risks, benefits, and alternatives were discussed: yes Risks discussed: Bleeding, bowel perforation and infection Alternatives discussed: No treatment [place] protocol: Procedure explained and questions answered to [...] bandage Post-procedure details: Procedure completion: Tolerated [facility] Work Phone: [facility] Work Phone: Proteinon 10-04-2024 Protein (Body fld) [Mass/Vol] g/dL Normal Not established [facility] [place] Comment on above: Order Comment: Venip uncture immediately after or during the administration of Metamizole may lead to falsely low results. Testing should be performed immediately prior to Metamizole dosing. Performed By: #### 2 524-7 #### MIREYA SHAH ([id number]) [facility] ([facility]) [address] [place] [address] Protime-INRon 10-04-2024 PT Coag (PPP) [Time] 23.[address] [facility] Triacylglycerol lipaseon Lipase [Catalytic activity/Vol] 56 U/L Normal 9-82 [facility] [place] Comment on above: Order Comment: Venip uncture immediately after or during the administration of Metamizole may lead to falsely low results. Testing should be performed immediately prior to Metamizole dosing. Performed By: #### 3 040-3 #### MIREYA SHAH ([id number]) [facility] ([facility]) [address] [place] [address] aPTT Coag (PPP) [Time]on The APTT is no longe r used for monitoring Unfractionated Heparin Therapy. For monitoring Heparin Therapy, use the Heparin Assay. [facility] pHon 10-04-2024 pH (Body fld) 7.82 Normal See Below [facility] [place] Comment on above: Order Comment: Venip uncture immediately after or during the administration of Metamizole may lead to falsely low results. Testing should be performed immediately prior to Metamizole dosing. Performed By: #### 2 524-7 #### MIREYA SHAH ([id number]) [facility] ([facility]) [address] [place] [address] Gl[facility] measurement at [facility] deOrdered By: Boone Izquierdo on 09-14-2024 Bedside Glucose (Misc Panel) 134 mg/dL High 74-106 [facility] Comment on above: MANAGEMENT OF PATIEN T CARE PER NURSING PROTOCOL Glucose [Mass/Vol] 134 mg/dL High 74-106 [facility] Glucose measurement at bedside 134 mg/dL High 74-106 [facility] Blood urea nitrogen (BUN)/cr eatinine ratioOrdered By: Jae Ash on 09-12-2024 Urea nitrogen/Creatinine [Mass ratio] 7.6 mg/mg Low 10-20 [facility] Blood urea nitrogen (BUN)/creatinine ratio 7.6 RATIO Low 10-20 [facility] Calcium [Mass/Vol]Ordered By : Jae Ash on 09-12-2024 Serum or plasma calcium measurement (mass/volume) 8.1 mg/dL Low 8.5-10.1 [facility] Carbon dioxide measurementOr dered By: Jae Ash on 09-12-2024 CO2 [Moles/Vol] 20.0 mmol/L Low 21.0-32.0 [facility] Carbon dioxide measurement 20.0 mmol/L Low 21.0-32.0 [facility] Chloride measurementOrdered By: Jae Ash on 09-12-2024 Chloride [Moles/Vol] 109 mmol/L High 98-107 [facility] Chloride measurement 109 mmol/L High 98-107 [facility] Creatinine [Mass/Vol]Ordered By: Jae Ash on 09-12-2024 Serum or plasma creatinine measurement (mass/volume) 0.92 mg/dL 0.70-1.30 [facility] Erythrocyte distribution wid th (RBC) [Ratio]Ordered By: Jae Ash on 09-12-2024 Erythrocyte distribution width ratio 19.7 % High 11.6-14.6 [facility] Erythrocyte distribution width standard deviation 63.5 fl High 35.1-43.9 [facility] Erythrocyte distribution wid th ratioOrdered By: Jae Ash on 09-12-2024 Erythrocyte distribution width (RBC) [Ratio] 19.7 % High 11.6-14.6 [facility] Erythrocyte distribution wid th standard deviationOrdered By: Jae Ash on 09-12-2024 Erythrocyte distribution width (RBC) [Entitic vol] 63.5 fL High 35.1-43.9 [facility] Erythrocyte distribution width (RBC) [Ratio] 63.5 fl High 35.1-43.9 [facility] Estimated glomerular filtrat ion rate (GFR) AmericanOrdered By: Jae Ash on 09-12-2024 Estimated GFR (MDRD) Amer 108 mL/min >60 [facility] Comment on above: GFR Calc Estimated glomerular filtration rate (GFR) 108 mL/min >60 [facility] Estimation of creatinine [place] aranceOrdered By: Jae Ash on 09-12-2024 Estimated Creatinine Clearance Calc 71.80 ml/min [facility] Estimation of creatinine clearance 71.80 ml/min [facility] Glomerular filtration rate ( GFR) estimationOrdered By: Jae Ash on 09-12-2024 Estimated GFR (MDRD) Non-Af Amer 89 mL/min >60 [facility] Comment on above: Non- GFR Calc GFR/1.73 sq M.predicted among non-blacks MDRD (S/P/Bld) [Vol rate/Area] 89 mL/min/{1.73_m2} >60 [facility] Glomerular filtration rate (GFR) estimation 89 mL/min >60 [facility] Glucose measurementOrdered B y: Jae Ash on 09-12-2024 Glucose [Mass/Vol] 149 mg/dL High 74-106 [facility] Comment on above: Fasting Glucose resu lt greater than or equal to 126 mg/dL suggests DIABETES MELLITUS per A.D.A. criteria. Glucose measurement 149 mg/dL High 74-106 [facility] Hematocrit Auto (Bld) [Volum e fraction]Ordered By: Jae Ash on 09-12-2024 Hematocrit (Bld) [Volume fraction] 25.8 % Low 40-54 [facility] Automated blood hematocrit (percentage) 25.8 % Low 40-54 [facility] Hemoglobin measurementOrdere d By: Jae Ash on 09-12-2024 Hemoglobin (Bld) [Mass/Vol] 8.1 g/dL Low 13.0-16.5 [facility] Hemoglobin measurement 8.1 g/dL Low 13.0-16.5 [facility] MCV (RBC) [Entitic vol]Order ed By: Jae Ash on 09-12-2024 MCV (mean corpuscular volume) determination 90.5 fL 80-94 [facility] MCV (mean corpuscular volume ) determinationOrdered By: Jae Ash on 09-12-2024 MCV (RBC) [Entitic vol] 90.5 fL 80-94 [facility] Mean corpuscular hemoglobin (MCH) determinationOrdered By: Jae Ash on 09-12-2024 MCH (RBC) [Entitic mass] 28.4 pg 27.0-32.0 [facility] Mean corpuscular hemoglobin (MCH) determination 28.4 pg 27.0-32.0 [facility] Mean corpuscular hemoglobin concentration (MCHC) determinationOrdered By: Jae Ash on 09-12-2024 MCHC (RBC) [Mass/Vol] 31.4 g/dL Low 32-36 [facility] Comment on above: Delta: 33.1 on 09/10 Mean corpuscular hemoglobin concentration (MCHC) determination 31.4 g/dL Low 32-36 [facility] Mean platelet volume determi nationOrdered By: Jae Ash on 09-12-2024 Platelet mean volume (Bld) [Entitic vol] 11.9 fL 6.2-12.0 [facility] Mean platelet volume determination 11.9 fl 6.2-12.0 [facility] Platelet countOrdered By: Sky Ash on 09-12-2024 Platelets (Bld) [#/Vol] 115 10*3/uL Low 150-450 [facility] Platelet count 115 K/mm3 Low 150-450 [facility] Potassium measurementOrdered By: Jae Ash on 09-12-2024 Potassium [Moles/Vol] 3.4 mmol/L Low 3.5-5.1 [facility] Potassium measurement 3.4 mmol/L Low 3.5-5.1 [facility] RBC Auto (Bld) [#/Vol]Ordere d By: Jae Ash on 09-12-2024 RBC (Bld) [#/Vol] 2.85 10*6/uL Low 4.6-6.2 [facility] Automated blood erythrocyte count 2.85 M/mm3 Low 4.6-6.2 [facility] Serum anion gap measurementO rdered By: Jae Ash on 09-12-2024 Anion gap [Moles/Vol] 7 mmol/L 5-15 [facility] Serum anion gap measurement 7 5-15 [facility] Serum or plasma calcium roosevelt urement (mass/volume)Ordered By: Jae Ash on 09-12-2024 Calcium [Mass/Vol] 8.1 mg/dL Low 8.5-10.1 [facility] Serum or plasma creatinine m easurement (mass/volume)Ordered By: Jae Ash on 09-12-2024 Creatinine [Mass/Vol] 0.92 mg/dL 0.70-1.30 [facility] Comment on above: The validity of the calculated GFR & GFRAA in patients over 70 years has not been determined. Clinical correlation is essential. Serum or plasma urea nitroge n measurement (mass/volume)Ordered By: Jae Ash on 09-12-2024 Urea nitrogen [Mass/Vol] 7 mg/dL 02-18 [facility] Sodium levelOrdered By: Pasha Ash on 09-12-2024 Sodium [Moles/Vol] 136 mmol/L 136-145 [facility] Sodium level 136 mmol/L 136-145 [facility] Urea nitrogen [Mass/Vol]Orde red By: Jae Ash on 09-12-2024 Serum or plasma urea nitrogen measurement (mass/volume) 7 mg/dL 02-18 [facility] White blood cell (WBC) count Ordered By: Jae Ash on 09-12-2024 WBC (Bld) [#/Vol] 7.4 10*3/uL 4.4-11.0 [facility] White blood cell (WBC) count 7.4 K/mm3 4.4-11.0 [facility] Serum or plasma trough vanco mycin levelOrdered By: Thia Thurston on 09-10-2024 Vancomycin trough [Mass/Vol] 15.7 ug/mL High 5.0-15.0 [facility] Vancomycin trough [Mass/Vol] Ordered By: Thai Thurston on 09-10-2024 Vancomycin Level Trough 15.7 ug/mL High 5.0-15.0 [facility] Comment on above: VANCOMYCIN STANDARED DRUG THERAPY TROUGH LEVEL: 5.0 - 15.0 mg/L VANCOMYCIN HIGH INTENSITY THERAPY TROUGH LEVEL: 15.0 - 20.0 mg/L High Intensity therapy recommended for serious lifethreatening infections include:- Gcueutnydj-Oxulfilofcfe-Zabimmemc (Ventilator/Healtcare Associated)-Sepsis PLEASE CONTACT PHARMACY SERVICES (#[id number]) FOR INTERPRETATIONOF RESULTS. Serum or plasma trough vancomycin level 15.7 ug/mL High 5.0-15.0 [facility] Serum or plasma vancomycin l evel (mass/volume)Ordered By: Maria Guadalupe Shore on 09-08-2024 Vancomycin [Mass/Vol] 16.5 ug/mL High 0.0-15.0 [facility] Vancomycin [Mass/Vol]Ordered By: Maria Guadalupe Shore on 02-05-2025 Random Vancomycin Level 16.5 ug/mL High 0.0-15.0 [facility] Comment on above: VANCOMYCIN STANDARD DRUG THERAPY: CRITICAL VALUE IS > 15.0 mg/L VANCOMYCIN HIGH INTENSITY THERAPY: CRITICAL VALUE IS > 20.0 mg/L PLEASE CONTACT PHARMACY SERVICES (#[id number]) FOR INTERPRETATIONOF RESULTS. THIS RESULT DOES NOT REPRESENT A PEAK OR TROUGHLEVEL FOR THIS DRUG. Serum or plasma vancomycin level (mass/volume) 16.5 ug/mL High 0.0-15.0 [facility] Absolute lymphocyte countOrd ered By: Anurag Irene on 09-07-2024 Lymphocytes Auto (Unsp spec) [#/Vol] 0.95 10*3/uL 0.83-4.51 [facility] Absolute neutrophil countOrd ered By: Anurag Irene on 09-07-2024 Neutrophils (Bld) [#/Vol] 13.3 10*3/uL High 2.0-7.7 [facility] Absolute neutrophil count 13.3 X10^3/uL High 2.0-7.7 [facility] Automated lymphocyte count a s percentage of total leukocytesOrdered By: Anurag Irene on 09-07-2024 Lymphocytes/100 WBC Auto (Unsp spec) 5.8 % Low 19-41 [facility] Basophil percentageOrdered B y: Anurag Irene on 09-07-2024 Basophils/100 WBC (Bld) 0.4 % 0-1 [facility] Basophil percentage 0.4 % 0-1 [facility] Eosinophil percentageOrdered By: Anurag Irene on 09-07-2024 Eosinophils/100 WBC (Bld) 3.0 % 0-5 [facility] Eosinophil percentage 3.0 % 0-5 [facility] Immature granulocytes/100 WB C Auto (Bld)Ordered By: Anurag Irene on 09-07-2024 Immature granulocytes/100 WBC (Bld) 1.400 % High 0.0-0.9 [facility] Comment on above: IG% - Immature Granu locytes (promyelocytes, myelocytes and metamyelocytes) > 1% indicates that a LEFT SHIFT is Present. Automated immature granulocyte percentage 1.400 % High 0.0-0.9 [facility] Lymphocytes Auto (Unsp spec) [#/Vol]Ordered By: Anurag Irene on 09-07-2024 Lymphocytes (Bld) [#/Vol] 0.95 10*3/uL 0.83-4.51 [facility] Absolute lymphocyte count 0.95 X10^3/uL 0.83-4.51 [facility] Lymphocytes/100 WBC Auto (Un sp spec)Ordered By: Anurag Irene on 09-07-2024 Lymphocytes/100 WBC (Bld) 5.8 % Low 19-41 [facility] Automated lymphocyte count as percentage of total leukocytes 5.8 % Low 19-41 [facility] Monocyte percentageOrdered B y: Anurag Irene on 09-07-2024 Monocytes/100 WBC (Bld) 8.6 % 0-10 [facility] Monocyte percentage 8.6 % 0-10 [facility] Neutrophil percentageOrdered By: Anurag Irene on 09-07-2024 Neutrophils/100 WBC (Bld) 80.8 % High 47-70 [facility] Neutrophil percentage 80.8 % High 47-70 [facility] Nucleated red blood cell per centageOrdered By: Anurag Irene on 09-07-2024 Nucleated RBC/100 WBC (Bld) [Ratio] 0 % 0-5 [facility] Nucleated red blood cell percentage 0 % 0-5 [facility] Blood cultureOrdered By: [place] Irene on 09-06-2024 Bacteria identified Cx Nom (Bld) No growth in 5 days. [facility] Blood culture No growth in 5 days. [facility] Blood cultureOrdered By: Shi Joiner on 09-05-2024 Bacteria identified Cx Nom (Bld) Staphylococcus epidermidis Abnormal [facility] Blood culture Staphylococcus epidermidis Abnormal [facility] Folic acid measurementOrdere d By: Hill Wright on 09-05-2024 Folate 30.10 ng/mL 3.1-55.4 [facility] Folic acid measurement 30.10 ng/mL 3.1-55.4 [facility] Lactic acid measurementOrder ed By: Hill Wright on 09-05-2024 Lactate [Moles/Vol] 2.3 mmol/L High 0.4-2.0 [facility] Comment on above: Critical Result(s) C alled at: 08:26:40 09/05/2024 by: Lucy Haque to [facility]. Results read back by same. Lactic acid measurement 2.3 mmol/L High 0.4-2.0 [facility] Serum ethanol measurementOrd ered By: Hill Wright on 09-05-2024 Ethyl Alcohol Level 4.0 mg/dL [facility] Comment on above: The serum:whole bloo d ethanol ratio is approximately 1.14and varies slightly with hematocrit. Medical Alcohol reference interval and critical value innon-tolerant individuals; 50 - 100 Impairment 100 Intoxication 100 - 250 Severe Poisoning 250 - 400 Deep/possible fatal coma Serum ethanol measurement 4.0 mg/dL [facility] Vitamin B12 measurementOrder ed By: Hill Wright on 09-05-2024 Vitamin B12 Level > 2000 pg/mL High 211-911 [facility] Vitamin B12 measurement > 2000 pg/mL High 211-911 [facility] ALP [Catalytic activity/Vol] Ordered By: Rachel Joiner on 09-04-2024 Serum or plasma alkaline phosphatase measurement 269 U/L High 45-117 [facility] ALT [Catalytic activity/Vol] Ordered By: Rachel Joiner on 09-04-2024 Serum or plasma alanine aminotransferase (ALT) measurement 79 U/L High 16-61 [facility] Albumin [Mass/Vol]Ordered By : Rachel Joiner on 09-04-2024 Serum or plasma albumin measurement (mass/volume) 2.0 g/dL Low 3.2-5.0 [facility] Bilirubin Test strip Ql (U)O rdered By: Rahcel Joiner on 09-04-2024 Bilirubin Ql (U) 1 mg/dL High Negative [facility] Comment on above: COLOR OF URINE MAY A FFECT DIPSTICK RESULTS. Bilirubin directOrdered By: Rachel Joiner on 09-04-2024 Bilirubin.direct [Mass/Vol] 1.80 mg/dL High 0.00-0.30 [facility] Bilirubin, totalOrdered By: Rachel Joiner on 09-04-2024 Bilirubin [Mass/Vol] 3.10 mg/dL High 0.20-1.00 [facility] Comment on above: For patients on eltr ombopag therapy, use of Dimension [place] TBIL is not recommended. Bilirubin, total 3.10 mg/dL High 0.20-1.00 [facility] Bilirubin.direct [Mass/Vol]O rdered By: Rachel Joiner on 09-04-2024 Bilirubin direct 1.80 mg/dL High 0.00-0.30 [facility] Blood cultureOrdered By: Shi Joiner on 09-04-2024 Bacteria identified Cx Nom (Bld) [facility] Clarity (U)Ordered By: Kaz Joiner on 09-04-2024 Urine clarity Clear Clear [facility] Color (U)Ordered By: Rachel Joiner on 09-04-2024 Urine color determination Yellow Yellow [facility] Epithelial cells.squamous LM Ql (Urine sed)Ordered By: Rachel Joiner on 09-04-2024 Epithelial cells.squamous LM.HPF (Urine sed) [#/Area] 0 /[HPF] 0-5 [facility] Glucose Ql (U)Ordered By: Brendan Joiner on 09-04-2024 Urine Glucose (UA) Normal mg/dl Normal [facility] Urine glucose detection Normal mg/dl Normal [facility] HbA1c (Bld) [Mass fraction]O rdered By: Hill Wright on 09-04-2024 Hemoglobin A1c percentage 7.3 % High 3.8-5.6 [facility] Hemoglobin A1c percentageOrd ered By: Hill Wright on 09-04-2024 HbA1c (Bld) [Mass fraction] 7.3 % High 3.8-5.6 [facility] Comment on above: Normal < 5.7 % Predi abetic 5.7 - 6.4 % Diabetic >or= 6.5 % Please note range changes. Ketones Test strip Ql (U)Ord ered By: Rachel Joiner on 09-04-2024 Ketones Ql (U) Negative Negative [facility] Laboratory - Chemistry and C hemistry - challengeOrdered By: Rachel Joiner on 09-04-2024 AST [Catalytic activity/Vol] 156 U/L High 15-37 [facility] Leukocyte esterase Test stri p Ql (U)Ordered By: Rachel Joiner on 09-04-2024 Urine leukocyte esterase detection by dipstick 100 /ul High Negative [facility] Methadone, urineOrdered By: Rachel Joiner on 09-04-2024 Urine Methadone Screen Negative < 300 ng/mL [facility] Microorganism identified Cx Nom (Unsp spec)Ordered By: Rachel Joiner on 09-04-2024 Bacteria Detection (PCR) Staphylococcus epidermidis Abnormal [facility] Bacteria Detection (PCR) mecA Resistance Marker Abnormal [facility] Organism identification mecA Resistance Marker Abnormal [facility] Microscopic analysis of urin e for red blood cells (RBC)Ordered By: Rachel Joiner on 09-04-2024 Urine RBC 10-25 SEEN /hpf 0-5 [facility] Microscopic analysis of urine for red blood cells (RBC) 10-25 SEEN /hpf 0-5 [facility] Mucus LM Ql (Urine sed)Order ed By: Rachel Joiner on 09-04-2024 Mucus Ql (Urine sed) 0 SEEN /hpf [facility] Nitrite Test strip Ql (U)Ord ered By: Rachel Joiner on 09-04-2024 Nitrite Ql (U) Negative Negative [facility] No Panel InformationOrdered By: Rachel Joiner on 09-04-2024 156 U/L High 15-37 [facility] Urine Drug Screen Comment [facility] Comment on above: CONFIRMATORY TESTING FOR [...] MUST BE ORDERED SEPARATELY. USE TESTMNEMONIC: UTCA [facility] Organism identificationOrder ed By: Rachel Joiner on 09-04-2024 Microorganism identified Cx Nom (Unsp spec) Staphylococcus epidermidis Abnormal [facility] Microorganism identified Cx Nom (Unsp spec) mecA Resistance Marker Abnormal [facility] Protein Test strip Ql (U)Ord ered By: Rachel Joiner on 09-04-2024 Protein Ql (U) 30 mg/dl High Negative [facility] Urine protein assay by test strip, semi-quantitative 30 mg/dl High Negative [facility] Quantitative urine opiates m easurementOrdered By: Rachel Joiner on 09-04-2024 Opiates Ql (U) Positive High < 300 ng/mL [facility] Quantitative urine opiates measurement Positive High < 300 ng/mL [facility] Screening prostate specific antigen (PSA) measurementOrdered By: Hill Wright on 09-04-2024 Prostate Specific Antigen Screen 1.41 ng/mL 0.00-4.00 [facility] Comment on above: This test was perfor med using the TPSA assay method for [employer] chemistry system. Values obtained with differentassay methods cannot be used interchangably.When changing PSA assays in the course of monitoring apatient, additional sequential testing should be carriedout to confirm baseline values. Screening prostate specific antigen (PSA) measurement 1.41 ng/mL 0.00-4.00 [facility] Serum globulin measurementOr dered By: Rachel Joiner on 09-04-2024 Globulin (S) [Mass/Vol] 4.1 g/dL 2.2-4.2 [facility] Serum globulin measurement 4.1 g/dL 2.2-4.2 [facility] Serum or plasma alanine thomas otransferase (ALT) measurementOrdered By: Rachel Joiner on 09-04-2024 ALT [Catalytic activity/Vol] 79 U/L High 16-61 [facility] Serum or plasma albumin roosevelt urement (mass/volume)Ordered By: Rachel Joiner on 09-04-2024 Albumin [Mass/Vol] 2.0 g/dL Low 3.2-5.0 [facility] Serum or plasma alkaline kendrick sphatase measurementOrdered By: Rachel Joiner on 09-04-2024 ALP [Catalytic activity/Vol] 269 U/L High 45-117 [facility] Serum or plasma thyroid stim ulating hormone (TSH) measurement (units/volume)Ordered By: Hill Wright on 09-04-2024 TSH Qn 0.826 uIU/mL 0.358-3.740 [facility] Specific gravity (U) [Rel de nsity]Ordered By: Rachel Joiner on 09-04-2024 Urine specific gravity measurement 1.020 1.002-1.030 [facility] Squamous epithelial cells de tection in urine sediment by light microscopyOrdered By: Rachel Joiner on 09-04-2024 Epithelial cells.squamous LM Ql (Urine sed) 0 SEEN /hpf 0-5 [facility] Squamous epithelial cells detection in urine sediment by light microscopy 0 SEEN /hpf [facility] TSH QnOrdered By: Hill patino on 09-04-2024 Thyroid Stimulating Hormone (TSH) 0.826 uIU/mL 0.358-3.740 [facility] Serum or plasma thyroid stimulating hormone (TSH) measurement (units/volume) 0.826 uIU/mL 0.358-3.740 [facility] Total proteinOrdered By: Shi Joiner on 09-04-2024 Protein [Mass/Vol] 6.1 g/dL Low 6.4-8.2 [facility] Total protein 6.1 g/dL Low 6.4-8.2 [facility] Urine amphetamine measuremen tOrdered By: Rachel Joiner on 09-04-2024 Amphetamines Ql (U) Negative <1000 ng/mL [facility] Urine barbiturates measureme ntOrdered By: Rachel Joiner on 09-04-2024 Urine Barbiturates Screen Negative < 200 ng/mL [facility] Urine benzodiazepine levelOr dered By: Rachel Joiner on 09-04-2024 Benzodiazepines Ql (U) Negative < 200 ng/mL [facility] Urine blood detectionOrdered By: Rachel Joiner on 09-04-2024 Urine Occult Blood 150 /ul High Negative [facility] Urine blood detection 150 /ul High Negative [facility] Urine clarityOrdered By: Shi Joiner on 09-04-2024 Clarity (U) Clear Clear [facility] Urine cocaine levelOrdered B y: Rachel Joiner on 09-04-2024 Cocaine Ql (U) Negative < 300 ng/mL [facility] Urine color determinationOrd ered By: Rachel Joiner on 09-04-2024 Color (U) Yellow Yellow [facility] Urine cultureOrdered By: Hugo Wright on 09-04-2024 Bacteria identified Cx Nom (U) Staphylococcus epidermidis Abnormal [facility] Urine culture Staphylococcus epidermidis Abnormal [facility] Urine unaou-4-[id number] abinol (THC) measurementOrdered By: Rachel Joiner on 09-04-2024 Cannabinoids Screen Ql (U) Negative < 50 ng/mL [facility] Urine glucose detectionOrder ed By: Rachel Joiner on 09-04-2024 Glucose Ql (U) Normal mg/dl Normal [facility] Urine ketones detection by t est stripOrdered By: Rachel Joiner on 09-04-2024 Urine ketones detection by test strip Negative < 50 ng/mL [facility] Urine leukocyte esterase det ection by dipstickOrdered By: Rachel Joiner on 09-04-2024 Leukocyte esterase Test strip Ql (U) 100 /ul High Negative [facility] Urine methylenedioxymethamph etamine (MDMA) measurementOrdered By: Rachel Joiner on 09-04-2024 MDMA (Ecstasy) Screen Negative < 500 ng/mL [facility] Urine pHOrdered By: Rachel silva on 09-04-2024 pH (U) 6.0 [pH] 5.0 - 8.0 [facility] Urine phencyclidine (PCP) de tectionOrdered By: Rachel Joiner on 09-04-2024 Phencyclidine Ql (U) Negative < 25 ng/mL [facility] Urine sediment bacteria coun t by microscopy (number/high power field)Ordered By: Rachel Joiner on 09-04-2024 Bacteria LM.HPF (Urine sed) [#/Area] 0 /[HPF] None Seen [facility] Urine specific gravity measu rementOrdered By: Rachel Joiner on 09-04-2024 Specific gravity (U) [Rel density] 1.020 1.002-1.030 [facility] Urine total bilirubin detect ion by test stripOrdered By: Rachel Joiner on 09-04-2024 Urine total bilirubin detection by test strip 1 mg/dL High Normal [facility] Urine urobilinogen measureme ntOrdered By: Rachel Joiner on 09-04-2024 Urobilinogen Ql (U) 1 mg/dl High Normal [facility] Urobilinogen Ql (U)Ordered B y: Rachel Joiner on 09-04-2024 Urobilinogen (U) [Mass/Vol] 1 mg/dL High Normal [facility] Venous blood ammonia measure mentOrdered By: Rachel Joiner on 09-04-2024 Ammonia (P) [Moles/Vol] 26.0 umol/L [facility] Venous blood ammonia measurement 26.0 umol/L [facility] White blood cell countOrdere d By: Rachel Joiner on 09-04-2024 Urine WBC 5-10 SEEN /hpf 0-5 [facility] Comment on above: Previous reported re sult: 0 SEEN /hpfEdited by: DANIEL on 09/04/24:5107 AMENDED REPORT 09/04/242336 WBC previously reported as: 0 SEEN /hpf White blood cell count 5-10 SEEN /hpf 0-5 [facility] White blood cell count 5-10 SEEN /hpf 0-5 [facility] pH (U)Ordered By: Rachel lambert on 09-04-2024 Urine pH 6.0 5.0 - 8.0 [facility] Absolute lymphocyte countOrd ered By: Bola Meraz on 09-02-2024 Lymphocytes Auto (Unsp spec) [#/Vol] 1.04 10*3/uL 0.83-4.51 [facility] Absolute neutrophil countOrd ered By: Bola Meraz on 09-02-2024 Neutrophils (Bld) [#/Vol] 14.0 10*3/uL High 2.0-7.7 [facility] Absolute neutrophil count 14.0 X10^3/uL High 2.0-7.7 [facility] Automated lymphocyte count a s percentage of total leukocytesOrdered By: Bola Meraz on 09-02-2024 Lymphocytes/100 WBC Auto (Unsp spec) 6.3 % Low 19-41 [facility] Basophil percentageOrdered B y: Bola Meraz on 09-02-2024 Basophils/100 WBC (Bld) 0.4 % 0-1 [facility] Basophil percentage 0.4 % 0-1 [facility] Blood urea nitrogen (BUN)/cr eatinine ratioOrdered By: Bola Meraz on 09-02-2024 Urea nitrogen/Creatinine [Mass ratio] 16.9 mg/mg 10-20 [facility] Blood urea nitrogen (BUN)/creatinine ratio 16.9 RATIO 10- [facility] Calcium [Mass/Vol]Ordered By : Bola Meraz on 09-02-2024 Serum or plasma calcium measurement (mass/volume) 8.9 mg/dL 8.5-10.1 [facility] Carbon dioxide measurementOr dered By: Bola Meraz on 09-02-2024 CO2 [Moles/Vol] 19.0 mmol/L Low 21.0-32.0 [facility] Carbon dioxide measurement 19.0 mmol/L Low 21.0-32.0 [facility] Chloride measurementOrdered By: Bola Meraz on 09-02-2024 Chloride [Moles/Vol] 107 mmol/L 98-107 [facility] Chloride measurement 107 mmol/L 98-107 [facility] Creatinine [Mass/Vol]Ordered By: Bola Meraz on 09-02-2024 Serum or plasma creatinine measurement (mass/volume) 2.54 mg/dL High 0.70-1.30 [facility] Eosinophil percentageOrdered By: Bola Meraz on 09-02-2024 Eosinophils/100 WBC (Bld) 1.3 % 0-5 [facility] Eosinophil percentage 1.3 % 0-5 [facility] Erythrocyte distribution wid th (RBC) [Ratio]Ordered By: Bola Meraz on 09-02-2024 Erythrocyte distribution width ratio 15.7 % High 11.6-14.6 [facility] Erythrocyte distribution width standard deviation 47.0 fl High 35.1-43.9 [facility] Erythrocyte distribution wid th ratioOrdered By: Bola Meraz on 09-02-2024 Erythrocyte distribution width (RBC) [Ratio] 15.7 % High 11.6-14.6 [facility] Erythrocyte distribution wid th standard deviationOrdered By: Bola Meraz on 09-02-2024 Erythrocyte distribution width (RBC) [Entitic vol] 47.0 fL High 35.1-43.9 [facility] Erythrocyte distribution width (RBC) [Ratio] 47.0 fl High 35.1-43.9 [facility] Estimated glomerular filtrat ion rate (GFR) AmericanOrdered By: Bola Meraz on 09-02-2024 Estimated GFR (MDRD) Amer 34 mL/min Low >60 [facility] Comment on above: GFR Calc Estimated glomerular filtration rate (GFR) 34 mL/min Low >60 [facility] Estimation of creatinine [place] aranceOrdered By: Bola Meraz on 09-02-2024 Estimated Creatinine Clearance Calc 37.67 ml/min [facility] Estimation of creatinine clearance 37.67 ml/min [facility] Glomerular filtration rate ( GFR) estimationOrdered By: Bola Meraz on 09-02-2024 Estimated GFR (MDRD) Non-Af Amer 28 mL/min Low >60 [facility] Comment on above: Non- GFR Calc GFR/1.73 sq M.predicted among non-blacks MDRD (S/P/Bld) [Vol rate/Area] 28 mL/min/{1.73_m2} Low >60 [facility] Glomerular filtration rate (GFR) estimation 28 mL/min Low >60 [facility] Glucose measurementOrdered B y: Bola Meraz on 09-02-2024 Glucose [Mass/Vol] 187 mg/dL [address] Comment on above: Fasting Glucose resu lt greater than or equal to 126 mg/dL suggests DIABETES MELLITUS per A.D.A. criteria. Glucose measurement 187 mg/dL [address] Glucose measurement at bedsi deOrdered By: Rick Carlin on 09-02-2024 Bedside Glucose (Misc Panel) 168 mg/dL [address] Comment on above: MANAGEMENT OF PATIEN T CARE PER NURSING PROTOCOL Glucose [Mass/Vol] 168 mg/dL [address] [facility] Glucose measurement at bedside 168 mg/dL [address] [facility] Hematocrit Auto (Bld) [Volum e fraction]Ordered By: Bola Meraz on 09-02-2024 Hematocrit (Bld) [Volume fraction] 30.8 % Low 40-54 [facility] Automated blood hematocrit (percentage) 30.8 % Low 40-54 [facility] Hemoglobin measurementOrdere d By: Bola Meraz on 09-02-2024 Hemoglobin (Bld) [Mass/Vol] 10.7 g/dL Low 13.0-16.5 [facility] Hemoglobin measurement 10.7 g/dL Low 13.0-16.5 [facility] Immature granulocytes/100 WB C Auto (Bld)Ordered By: Bola Meraz on 09-02-2024 Immature granulocytes/100 WBC (Bld) 1.300 % High 0.0-0.9 [facility] Comment on above: IG% - Immature Granu locytes (promyelocytes, myelocytes and metamyelocytes) > 1% indicates that a LEFT SHIFT is Present. Automated immature granulocyte percentage 1.300 % High 0.0-0.9 [facility] Lymphocytes Auto (Unsp spec) [#/Vol]Ordered By: Bola Meraz on 09-02-2024 Lymphocytes (Bld) [#/Vol] 1.04 10*3/uL 0.83-4.51 [facility] Absolute lymphocyte count 1.04 X10^3/uL 0.83-4.51 [facility] Lymphocytes/100 WBC Auto (Un sp spec)Ordered By: Bola Meraz on 09-02-2024 Lymphocytes/100 WBC (Bld) 6.3 % Low 19-41 [facility] Automated lymphocyte count as percentage of total leukocytes 6.3 % Low 19-41 [facility] MCV (RBC) [Entitic vol]Order ed By: Bola Meraz on 09-02-2024 MCV (mean corpuscular volume) determination 83.7 fL 80-94 [facility] MCV (mean corpuscular volume ) determinationOrdered By: Bola Meraz on 09-02-2024 MCV (RBC) [Entitic vol] 83.7 fL 80-94 [facility] Mean corpuscular hemoglobin (MCH) determinationOrdered By: Bola Meraz on 09-02-2024 MCH (RBC) [Entitic mass] 29.1 pg 27.0-32.0 [facility] Mean corpuscular hemoglobin (MCH) determination 29.1 pg 27.0-32.0 [facility] Mean corpuscular hemoglobin concentration (MCHC) determinationOrdered By: Bola Meraz on 09-02-2024 MCHC (RBC) [Mass/Vol] 34.7 g/dL 32-36 [facility] Mean corpuscular hemoglobin concentration (MCHC) determination 34.7 g/dL 32-36 [facility] Mean platelet volume determi nationOrdered By: Bola Meraz on 09-02-2024 Platelet mean volume (Bld) [Entitic vol] 12.8 fL High 6.2-12.0 [facility] Mean platelet volume determination 12.8 fl High 6.2-12.0 [facility] Monocyte percentageOrdered B y: Bola Meraz on 09-02-2024 Monocytes/100 WBC (Bld) 6.0 % 0-10 [facility] Monocyte percentage 6.0 % 0-10 [facility] Neutrophil percentageOrdered By: Bola Meraz on 09-02-2024 Neutrophils/100 WBC (Bld) 84.7 % High 47-70 [facility] Neutrophil percentage 84.7 % High 47-70 [facility] Nucleated red blood cell per centageOrdered By: Bola Meraz on 09-02-2024 Nucleated RBC/100 WBC (Bld) [Ratio] 0 % 0-5 [facility] Nucleated red blood cell percentage 0 % 0-5 [facility] Platelet countOrdered By: Oliver on 09-02-2024 Platelets (Bld) [#/Vol] 82 10*3/uL Low 150-450 [facility] Platelet count 82 K/mm3 Low 150-450 [facility] Potassium measurementOrdered By: Bola Meraz on 09-02-2024 Potassium [Moles/Vol] 4.0 mmol/L 3.5-5.1 [facility] Potassium measurement 4.0 mmol/L 3.5-5.1 [facility] RBC Auto (Bld) [#/Vol]Ordere d By: Bola Meraz on 09-02-2024 RBC (Bld) [#/Vol] 3.68 10*6/uL Low 4.6-6.2 [facility] Automated blood erythrocyte count 3.68 M/mm3 Low 4.6-6.2 [facility] Serum anion gap measurementO rdered By: Bola Meraz on 09-02-2024 Anion gap [Moles/Vol] 8 mmol/L 5-15 [facility] Serum anion gap measurement 8 5-15 [facility] Serum or plasma calcium roosevelt urement (mass/volume)Ordered By: Bola Meraz on 09-02-2024 Calcium [Mass/Vol] 8.9 mg/dL 8.5-10.1 [facility] Serum or plasma creatinine m easurement (mass/volume)Ordered By: Bola Meraz on 09-02-2024 Creatinine [Mass/Vol] 2.54 mg/dL High 0.70-1.30 [facility] Comment on above: The validity of the calculated GFR & GFRAA in patients over 70 years has not been determined. Clinical correlation is essential. Serum or plasma urea nitroge n measurement (mass/volume)Ordered By: Bola Meraz on 09-02-2024 Urea nitrogen [Mass/Vol] 43 mg/dL High -18 [facility] Sodium levelOrdered By: Deanna Meraz on 09-02-2024 Sodium [Moles/Vol] 133 mmol/L Low 136-145 [facility] Sodium level 133 mmol/L Low 136-145 [facility] Urea nitrogen [Mass/Vol]Orde red By: Bola Meraz on 09-02-2024 Serum or plasma urea nitrogen measurement (mass/volume) 43 mg/dL High 7-18 [facility] White blood cell (WBC) count Ordered By: Bola Meraz on 09-02-2024 WBC (Bld) [#/Vol] 16.5 10*3/uL High 4.4-11.0 [facility] White blood cell (WBC) count 16.5 K/mm3 High 4.4-11.0 [facility] ALP [Catalytic activity/Vol] Ordered By: Maria Guadalupe Shore on 08-30-2024 Serum or plasma alkaline phosphatase measurement 143 U/L High 45-117 [facility] ALT [Catalytic activity/Vol] Ordered By: Maria Guadalupe Shore on 08-30-2024 Serum or plasma alanine aminotransferase (ALT) measurement 19 U/L 16-61 [facility] Albumin [Mass/Vol]Ordered By : Maria Guadalupe Shore 08-30-2024 Serum or plasma albumin measurement (mass/volume) 1.9 g/dL Low 3.2-5.0 [facility] Bilirubin directOrdered By: Maria Guadalupe Shore on 08-30-2024 Bilirubin.direct [Mass/Vol] 0.83 mg/dL High 0.00-0.30 [facility] Bilirubin, totalOrdered By: Maria Guadalupe Shore on 08-30-2024 Bilirubin [Mass/Vol] 1.30 mg/dL High 0.20-1.00 [facility] Comment on above: For patients on eltr ombopag therapy, use of Dimension [place] TBIL is not recommended. Bilirubin, total 1.30 mg/dL High 0.20-1.00 [facility] Bilirubin.direct [Mass/Vol]O rdered By: Maria Guadalupe Shore on 08-30-2024 Bilirubin direct 0.83 mg/dL High 0.00-0.30 [facility] Ferritin measurementOrdered By: Maria Guadalupe Shore on 08-30-2024 Ferritin [Mass/Vol] 85 ng/mL [facility] Ferritin measurement 85 ng/mL 388 [facility] HbA1c (Bld) [Mass fraction]O rdered By: Maria Guadalupe Shore on 08-30-2024 Hemoglobin A1c percentage 7.9 % High 3.8-5.6 [facility] Hemoglobin A1c percentageOrd ered By: Maria Guadalupe Shore on 08-30-2024 HbA1c (Bld) [Mass fraction] 7.9 % High 3.8-5.6 [facility] Comment on above: Normal < 5.7 % Predi abetic 5.7 - 6.4 % Diabetic >or= 6.5 % Please note range changes. Iron (Unsp spec) [Mass/Mass] Ordered By: Maria Guadalupe Shore on 08-30-2024 Iron [Mass/Vol] 62 ug/dL Low 65-175 [facility] Iron measurement (mass/mass) 62 ug/dL Low 65-175 [facility] Iron measurement (mass/mass) Ordered By: Maria Guadalupe Shore on 08-30-2024 Iron (Unsp spec) [Mass/Mass] 62 ug/dL Low 65-175 [facility] Iron saturation [Mass fracti on]Ordered By: Maria Guadalupe Shore on 08-30-2024 Iron Saturation 33.9 % 15.0-55.0 [facility] Serum or plasma iron saturation measurement (mass fraction) 33.9 % 15.0-55.0 [facility] Laboratory - Chemistry and C hemistry - challengeOrdered By: Maria Guadalupe Shore on 08-30-2024 AST [Catalytic activity/Vol] 22 U/L [facility] No Panel InformationOrdered By: Maria Guadalupe Shore on 01-27-2025 22 U/L 15-37 [facility] Serum globulin measurementOr dered By: Maria Guadalupe Shore on 08-30-2024 Globulin (S) [Mass/Vol] 3.4 g/dL 2.2-4.2 [facility] Serum globulin measurement 3.4 g/dL 2.2-4.2 [facility] Serum or plasma alanine thomas otransferase (ALT) measurementOrdered By: Maria Guadalupe Shore on 08-30-2024 ALT [Catalytic activity/Vol] 19 U/L 16-61 [facility] Serum or plasma albumin roosevelt urement (mass/volume)Ordered By: Maria Guadalupe Shore on 08-30-2024 Albumin [Mass/Vol] 1.9 g/dL Low 3.2-5.0 [facility] Serum or plasma alkaline kendrick sphatase measurementOrdered By: Maria Guadalupe Shore on 08-30-2024 ALP [Catalytic activity/Vol] 143 U/L High 45-117 [facility] Serum or plasma iron saturat ion measurement (mass fraction)Ordered By: Maria Guadalupe Shore on 08-30-2024 Iron saturation [Mass fraction] 33.9 % 15.0-55.0 [facility] TIBCOrdered By: Maria Guadalupe Shore on 08-30-2024 Total Iron Binding Capacity 183 ug/dL Low 250-450 [facility] TIBC 183 ug/dL Low 250-450 [facility] Total proteinOrdered By: Aut davi Shore on 08-30-2024 Protein [Mass/Vol] 5.3 g/dL Low 6.4-8.2 [facility] Total protein 5.3 g/dL Low 6.4-8.2 [facility] Venous blood ammonia measure mentOrdered By: Maria Guadalupe Shore on 08-30-2024 Ammonia (P) [Moles/Vol] 64.0 umol/L High 11 [facility] Venous blood ammonia measurement 64.0 umol/L High [facility] Activated partial thrombopla stin time (aPTT) in platelet poor plasma by coagulation aOrdered By: Luis Carlos Anderson on 08-29-2024 aPTT Coag (PPP) [Time] 40.9 s High 24.1-36.2 [facility] Albumin to globulin ratioOrd ered By: Luis Carlos Anderson on 08-29-2024 Albumin/Globulin [Mass ratio] 0.4 {ratio} Low 0.9-2.4 [facility] Albumin to globulin ratio 0.4 RATIO Low 0.9-2.4 [facility] Bacteria LM.HPF (Urine sed) [#/Area]Ordered By: Luis Carlos Anderson on 08-29-2024 Urine Bacteria RARE /hpf None Seen [facility] Urine sediment bacteria count by microscopy (number/high power field) RARE /hpf None Seen [facility] Bilirubin Test strip Ql (U)O rdered By: Luis Carlos Anderson on 08-29-2024 Bilirubin Ql (U) 1 mg/dL High Negative [facility] Comment on above: COLOR OF URINE MAY A FFECT DIPSTICK RESULTS. Clarity (U)Ordered By: Juan Alberto Anderson on 08-29-2024 Urine clarity Clear Clear [facility] Color (U)Ordered By: Luis Carlos Anderson on 08-29-2024 Urine color determination Yellow Yellow [facility] Creatinine (U) [Mass/Vol]Ord ered By: Maria Guadalupe White on 08-29-2024 Urine creatinine measurement (mass/volume) 173.00 mg/dL NO RANGE EST. [facility] Epithelial cells.squamous LM Ql (Urine sed)Ordered By: Luis Carlos Anderson on 08-29-2024 Epithelial cells.squamous LM.HPF (Urine sed) [#/Area] 0 /[HPF] 0-5 [facility] Squamous epithelial cells detection in urine sediment by light microscopy 0 SEEN /hpf 0-5 [facility] Glucose Ql (U)Ordered By: Yaya Anderson on 08-29-2024 Glucose (U) [Mass/Vol] 50 mg/dL High Normal [facility] Urine glucose detection 50 mg/dl High Normal [facility] International normalized rat io (INR) calculationOrdered By: Luis Carlos Anderson on 08-29-2024 INR Coag (Bld) [Relative time] 1.7 {INR} [facility] [employer] normalized ratio (INR) calculation 1.7 [facility] [facility] Ketones Test strip Ql (U)Ord ered By: Luis Carlos Anderson on 08-29-2024 Ketones Ql (U) Negative Negative [facility] Leukocyte esterase Test stri p Ql (U)Ordered By: Luis Carlos Anderson on 08-29-2024 Urine leukocyte esterase detection by dipstick 500 /ul High Negative [facility] Lipase measurementOrdered By : Luis Carlos Anderson on 08-29-2024 Lipase [Catalytic activity/Vol] 26 U/L - [facility] Comment on above: Please note:LIPASE r evised reference range effective 22. New Lipase methodology. Expected to produce lower values than the previous assay method. NEW Reference Range: 13 - 75 U/L Lipase measurement 26 U/L 13-75 [facility] Magnesium measurementOrdered By: Maria Guadalupe Shore on 08-29-2024 Magnesium [Mass/Vol] 2.7 mg/dL High 1.6-2.6 [facility] Magnesium measurement 2.7 mg/dL High 1.6-2.6 [facility] Microscopic analysis of urin e for red blood cells (RBC)Ordered By: Luis Carlos Anderson on 08-29-2024 Urine RBC 5-10 SEEN /hpf 0-5 [facility] Microscopic analysis of urine for red blood cells (RBC) 5-10 SEEN /hpf 0-5 [facility] Mucus LM Ql (Urine sed)Order ed By: Luis Carlos Anderson on 08-29-2024 Mucus Ql (Urine sed) 1+ /hpf [facility] Mucus detection in urine sediment by light microscopy 1+ /hpf [facility] Nitrite Test strip Ql (U)Ord ered By: Luis Carlos Anderson on 08-29-2024 Nitrite Ql (U) Negative Negative [facility] Phosphorus measurementOrdere d By: Maria Guadalupe Shore on 08-29-2024 Phosphorus Level 4.9 mg/dL 2.5-4.9 [facility] Phosphorus measurement 4.9 mg/dL 2.5-4.9 [facility] Protein Test strip Ql (U)Ord ered By: Luis Carlos Anderson on 08-29-2024 Protein Ql (U) 30 mg/dl High Negative [facility] Urine protein assay by test strip, semi-quantitative 30 mg/dl High Negative [facility] Prothrombin timeOrdered By: Luis Carlos Anderson on 08-29-2024 PT Coag (PPP) [Time] 20.0 s High 11.7-14.9 [facility] Prothrombin time 20.0 SECONDS High 11.7-14.9 [facility] Sodium urOrdered By: Maria Guadalupe Shore on 08-29-2024 Sodium (U) [Moles/Vol] 30 mmol/L Not Establ. [facility] Sodium [Moles/Vol] 30 mmol/L Not Establ[facility]/L Not Establ. [facility] Specific gravity (U) [Rel de nsity]Ordered By: Luis Carlos Anderson on 08-29-2024 Urine specific gravity measurement 1.015 1.002-1.030 [facility] Squamous epithelial cells de tection in urine sediment by light microscopyOrdered By: Luis Carlos Anderson on 08-29-2024 Epithelial cells.squamous LM Ql (Urine sed) 0 SEEN /hpf 0-5 [facility] Urine blood detectionOrdered By: Luis Carlos Anderson on 08-29-2024 Urine Occult Blood 150 /ul High Negative [facility] Urine blood detection 150 /ul High Negative [facility] Urine clarityOrdered By: Joann Anderson on 08-29-2024 Clarity (U) Clear Clear [facility] Urine color determinationOrd ered By: Luis Carlos Anderson on 08-29-2024 Color (U) Yellow Yellow [facility] Urine creatinine measurement (mass/volume)Ordered By: Maria Guadalupe Shore on 08-29-2024 Creatinine (U) [Mass/Vol] 173.00 mg/dL NO RANGE EST. [facility] Urine cultureOrdered By: Joann Anderson on 08-29-2024 Bacteria identified Cx Nom (U) Culture exhibits no growth. [facility] Urine culture Culture exhibits no growth. [facility] Urine glucose detectionOrder ed By: Luis Carlos Anderson on 08-29-2024 Glucose Ql (U) 50 mg/dl High Normal [facility] Urine ketones detection by t est stripOrdered By: Luis Carlos Anderson on 08-29-2024 Urine ketones detection by test strip Negative Negative [facility] Urine leukocyte esterase det ection by dipstickOrdered By: Luis Carlos Anderson on 08-29-2024 Leukocyte esterase Test strip Ql (U) 500 /ul High Negative [facility] Urine pHOrdered By: Luis Carlos hammond on 08-29-2024 pH (U) 6.0 [pH] 5.0 - 8.0 [facility] Urine sediment bacteria coun t by microscopy (number/high power field)Ordered By: Luis Carlos Anderson on 08-29-2024 Bacteria LM.HPF (Urine sed) [#/Area] RARE /hpf None Seen [facility] Urine specific gravity measu rementOrdered By: Luis Carlos Anderson on 08-29-2024 Specific gravity (U) [Rel density] 1.015 1.002-1.030 [facility] Urine total bilirubin detect ion by test stripOrdered By: Luis Carlos Anderson on 08-29-2024 Urine total bilirubin detection by test strip 1 mg/dL High Normal [facility] Urine urobilinogen measureme ntOrdered By: Luis Carlos Anderson on 08-29-2024 Urobilinogen Ql (U) 1 mg/dl High Normal [facility] Urobilinogen Ql (U)Ordered B y: Luis Carlos Anderson on 08-29-2024 Urobilinogen (U) [Mass/Vol] 1 mg/dL High Normal [facility] White blood cell countOrdere d By: Luis Carlos Anderson on 08-29-2024 Urine WBC 10-25 SEEN /hpf 0-5 [facility] White blood cell count 10-25 SEEN /hpf 0-5 [facility] White blood cell count 10-25 SEEN /hpf 0-5 [facility] aPTT Coag (PPP) [Time]Ordere d By: Luis Carlos Anderson on 08-29-2024 aPTT Coag (Bld) [Time] 40.9 s High 24.1-36.2 [facility] Activated partial thromboplastin time (aPTT) in platelet poor plasma by coagulation a 40.9 Seconds High 24.1-36.2 [facility] pH (U)Ordered By: Ashu on 08-29-2024 Urine pH 6.0 5.0 - 8.0 [facility] Vital Signs Date Time Vital Sign Value Performing Clinician Facility 04-07-2025 22:05-0400 Body mass index (BMI) [Ratio] 33.3 kg/m2 Josy RONQUILLO Work Phone: 5(125)031-955457 [place] [address] 04-07-2025 22:05-0400 Body temperature 98 [degF] Josydominique Baumannhof [facility] Work Phone: 0(541)[phone] [place] [address] 04-07-2025 22:05-0400 Body weight 102.3 kg Josy Pastorhof [facility] Work Phone: 8(161)420-540882 [place] [address] 04-07-2025 22:05-0400 Diastolic blood pressure 70 mm[Hg] Josy Pastorhof [facility] Work Phone: 2(539)520-608482 [place] [address] 04-07-2025 22:05-0400 Heart rate 74 /min Josy Pastorhof [facility] Work Phone: 1(949)719-398382 [place] [address] 04-07-2025 22:05-0400 Respiratory rate 15 /min Josy Tannhof [facility] Work Phone: 5(808)067-215782 [place] [address] 04-07-2025 22:05-0400 SaO2% (BldA) [Mass fraction] 100 % Josydominique Baumannhof [facility] Work Phone: 4(620)039-131382 [place] [address] 04-07-2025 22:05-0400 Systolic blood pressure 112 mm[Hg] Josydominique Baumannhof [facility] Work Phone: 9(023)007-740282 [place] [address] 04-07-2025 18:05-0400 Body height 175.26 cm Josydominique Baumannhof [facility] Work Phone: 8(913)329-965682 [place] [address] 04-03-2025 20:14-0400 Body temperature 97.8 [degF] Josydominique Baumannhof [facility] Work Phone: 5(068)166-866682 [place] [address] 04-03-2025 20:14-0400 Diastolic blood pressure 83 mm[Hg] Josy Tannhof [facility] Work Phone: 5(711)738-021382 [place] [address] 04-03-2025 20:14-0400 Heart rate 109 /min Josy Tannhof [facility] Work Phone: 5(099)093-695882 [place] [address] 04-03-2025 20:14-0400 Respiratory rate 20 /min Josy Tannhof [facility] Work Phone: 3(560)746-493982 [place] [address] 04-03-2025 20:14-0400 SaO2% (BldA) [Mass fraction] 95 % Josy Obrienf [facility] Work Phone: 2(550)734-381057 [place] [address] 04-03-2025 20:14-0400 Systolic blood pressure 117 mm[Hg] Josy Obrienf [facility] Work Phone: 6(516)367-133082 [place] [address] 03-30-2025 13:05-0400 Body temperature 97.3 [degF] Josy Obrienf [facility] Work Phone: 1(152)396-045882 [place] [address] 03-30-2025 13:05-0400 Diastolic blood pressure 63 mm[Hg] Josy Obrienf [facility] Work Phone: 4(166)838-293782 [place] [address] 03-30-2025 13:05-0400 Heart rate 75 /min Josy Obrienf [facility] Work Phone: 1(398)152-630282 [place] [address] 03-30-2025 13:05-0400 Respiratory rate 16 /min Josy Obrienf [facility] Work Phone: 2(107)854-739557 [place] [address] 03-30-2025 13:05-0400 SaO2% (BldA) [Mass fraction] 100 % Josy Obrienf [facility] Work Phone: 0(471)600-719882 [place] [address] 03-30-2025 13:05-0400 Systolic blood pressure 102 mm[Hg] Josy Obrienf [facility] Work Phone: 6(663)837-104482 [place] [address] 03-30-2025 10:56-0400 Body mass index (BMI) [Ratio] 29.9 kg/m2 Josy Obrienf [facility] Work Phone: 8(921)235-364782 [place] [address] 03-30-2025 10:56-0400 Body weight 92 kg Josy Obrienf [facility] Work Phone: 5(969)913-971882 [place] [address] 03-11-2025 22:11-0400 Body temperature 98.1 [degF] No Primary Care Physician [facility] 03-11-2025 22:11-0400 Diastolic blood pressure 65 mm[Hg] No Primary Care Physician [facility] 03-11-2025 22:11-0400 Heart rate 70 /min No Primary Care Physician [facility] 03-11-2025 22:11-0400 Respiratory rate 16 /min No Primary Care Physician [facility] 03-11-2025 22:11-0400 SaO2% (BldA) [Mass fraction] 100 % No Primary Care Physician [facility] 03-11-2025 22:11-0400 Systolic blood pressure 98 mm[Hg] No Primary Care Physician [facility] 03-11-2025 17:10-0400 Body height 175.26 cm No Primary Care Physician [facility] 03-11-2025 17:10-0400 Body mass index (BMI) [Ratio] 29.8 kg/m2 No Primary Care Physician [facility] 03-11-2025 17:10-0400 Body weight 91.62 kg No Primary Care Physician [facility] 03-10-2025 14:16-0400 Body mass index (BMI) [Ratio] 29 kg/m2 No Primary Care Physician [facility] 03-10-2025 14:16-0400 Body weight 89.35 kg No Primary Care Physician [facility] 03-10-2025 14:16-0400 Diastolic blood pressure 59 mm[Hg] No Primary Care Physician [facility] 03-10-2025 14:16-0400 Heart rate 77 /min No Primary Care Physician [facility] 03-10-2025 14:16-0400 Respiratory rate 17 /min No Primary Care Physician [facility] 03-10-2025 14:16-0400 SaO2% (BldA) [Mass fraction] 99 % No Primary Care Physician [facility] 03-10-2025 14:16-0400 Systolic blood pressure 95 mm[Hg] No Primary Care Physician [facility] 03-04-2025 12:36-0400 Diastolic blood pressure 64 mm[Hg] No Primary Care Physician [facility] 03-04-2025 12:36-0400 Heart rate 68 /min No Primary Care Physician [facility] 03-04-2025 12:36-0400 Respiratory rate 16 /min No Primary Care Physician [facility] 03-04-2025 12:36-0400 Systolic blood pressure 103 mm[Hg] No Primary Care Physician [facility] 02-27-2025 14:46-0400 Body temperature 98.4 [degF] No Primary Care Physician [facility] 02-27-2025 14:46-0400 Diastolic blood pressure 67 mm[Hg] No Primary Care Physician [facility] 02-27-2025 14:46-0400 Heart rate 87 /min No Primary Care Physician [facility] 02-27-2025 14:46-0400 Respiratory rate 16 /min No Primary Care Physician [facility] 02-27-2025 14:46-0400 SaO2% (BldA) [Mass fraction] 96 % No Primary Care Physician [facility] 02-27-2025 14:46-0400 Systolic blood pressure 119 mm[Hg] No Primary Care Physician [facility] 02-26-2025 15:23-0400 Body weight 90.26 kg No Primary Care Physician [facility] 02-25-2025 11:36-0400 Body mass index (BMI) [Ratio] 31.9 kg/m2 No Primary Care Physician [facility] 02-17-2025 17:05-0400 Body temperature 98.2 [degF] No Primary Care Physician [facility] 02-17-2025 17:05-0400 Diastolic blood pressure 71 mm[Hg] No Primary Care Physician [facility] 02-17-2025 17:05-0400 Heart rate 74 /min No Primary Care Physician [facility] 02-17-2025 17:05-0400 Respiratory rate 16 /min No Primary Care Physician [facility] 02-17-2025 17:05-0400 SaO2% (BldA) [Mass fraction] 98 % No Primary Care Physician [facility] 02-17-2025 17:05-0400 Systolic blood pressure 123 mm[Hg] No Primary Care Physician [facility] 02-16-2025 19:56-0400 Body height 175.26 cm No Primary Care Physician [facility] 02-16-2025 19:56-0400 Body mass index (BMI) [Ratio] 31.1 kg/m2 No Primary Care Physician [facility] 02-16-2025 19:56-0400 Body weight 95.6 kg No Primary Care Physician [facility] 02-16-2025 19:34-0400 Body temperature 97.8 [degF] No Primary Care Physician [facility] 02-16-2025 19:34-0400 Diastolic blood pressure 61 mm[Hg] No Primary Care Physician [facility] 02-16-2025 19:34-0400 Heart rate 76 /min No Primary Care Physician [facility] 02-16-2025 19:34-0400 Respiratory rate 18 /min No Primary Care Physician [facility] 02-16-2025 19:34-0400 SaO2% (BldA) [Mass fraction] 96 % No Primary Care Physician [facility] 02-16-2025 19:34-0400 Systolic blood pressure 102 mm[Hg] No Primary Care Physician [facility] 02-16-2025 17:20-0400 Body height 175.26 cm No Primary Care Physician [facility] 02-13-2025 21:17-0400 Body temperature 98.8 [degF] No Primary Care Physician [facility] 02-13-2025 21:17-0400 Diastolic blood pressure 75 mm[Hg] No Primary Care Physician [facility] 02-13-2025 21:17-0400 Heart rate 59 /min No Primary Care Physician [facility] 02-13-2025 21:17-0400 Respiratory rate 16 /min No Primary Care Physician [facility] 02-13-2025 21:17-0400 SaO2% (BldA) [Mass fraction] 100 % No Primary Care Physician [facility] 02-13-2025 21:17-0400 Systolic blood pressure 97 mm[Hg] No Primary Care Physician [facility] 02-13-2025 16:30-0400 Body height 175.26 cm No Primary Care Physician [facility] 02-13-2025 16:30-0400 Body mass index (BMI) [Ratio] 33 kg/m2 No Primary Care Physician [facility] 02-13-2025 16:30-0400 Body weight 101.5 kg No Primary Care Physician [facility] 02-11-2025 12:35-0400 Diastolic blood pressure 55 mm[Hg] No Primary Care Physician [facility] 02-11-2025 12:35-0400 Heart rate 63 /min No Primary Care Physician [facility] 02-11-2025 12:35-0400 Respiratory rate 18 /min No Primary Care Physician [facility] 02-11-2025 12:35-0400 Systolic blood pressure 85 mm[Hg] No Primary Care Physician [facility] 02-11-2025 12:33-0400 Body temperature 97.3 [degF] No Primary Care Physician [facility] 02-08-2025 01:26-0400 Body temperature 97.6 [degF] No Primary Care Physician [facility] 02-08-2025 01:26-0400 Diastolic blood pressure 63 mm[Hg] No Primary Care Physician [facility] 02-08-2025 01:26-0400 Heart rate 62 /min No Primary Care Physician [facility] 02-08-2025 01:26-0400 Respiratory rate 18 /min No Primary Care Physician [facility] 02-08-2025 01:26-0400 SaO2% (BldA) [Mass fraction] 100 % No Primary Care Physician [facility] 02-08-2025 01:26-0400 Systolic blood pressure 97 mm[Hg] No Primary Care Physician [facility] 02-07-2025 22:20-0400 Body mass index (BMI) [Ratio] 34.8 kg/m2 No Primary Care Physician [facility] 02-07-2025 22:20-0400 Body weight 107.1 kg No Primary Care Physician [facility] 02-07-2025 19:24-0400 Body height 175.26 cm No Primary Care Physician [facility] 01-31-2025 18:35-0400 Body temperature 98.1 [degF] No Primary Care Physician [facility] 01-31-2025 18:35-0400 Diastolic blood pressure 86 mm[Hg] No Primary Care Physician [facility] 01-31-2025 18:35-0400 Heart rate 100 /min No Primary Care Physician [facility] 01-31-2025 18:35-0400 Respiratory rate 16 /min No Primary Care Physician [facility] 01-31-2025 18:35-0400 SaO2% (BldA) [Mass fraction] 100 % No Primary Care Physician [facility] 01-31-2025 18:35-0400 Systolic blood pressure 127 mm[Hg] No Primary Care Physician [facility] 01-31-2025 09:49-0400 Body height 182.88 cm No Primary Care Physician [facility] 01-31-2025 09:49-0400 Body weight 110.3 kg No Primary Care Physician [facility] 01-28-2025 09:46-0400 Body mass index (BMI) [Ratio] 33 kg/m2 No Primary Care Physician [facility] 01-28-2025 09:00-0400 Body temperature 98 [degF] No Primary Care Physician [facility] 01-28-2025 09:00-0400 Diastolic blood pressure 67 mm[Hg] No Primary Care Physician [facility] 01-28-2025 09:00-0400 Heart rate 106 /min No Primary Care Physician [facility] 01-28-2025 09:00-0400 Respiratory rate 15 /min No Primary Care Physician [facility] 01-28-2025 09:00-0400 SaO2% (BldA) [Mass fraction] 100 % No Primary Care Physician [facility] 01-28-2025 09:00-0400 Systolic blood pressure 125 mm[Hg] No Primary Care Physician [facility] 01-28-2025 02:56-0400 Body height 187.96 cm No Primary Care Physician [facility] 01-28-2025 02:56-0400 Body mass index (BMI) [Ratio] 31.7 kg/m2 No Primary Care Physician [facility] 01-28-2025 02:56-0400 Body weight 112.2 kg No Primary Care Physician [facility] 01-21-2025 13:00-0400 Body temperature 97.7 [degF] No Primary Care Physician [facility] 01-21-2025 13:00-0400 Diastolic blood pressure 60 mm[Hg] No Primary Care Physician [facility] 01-21-2025 13:00-0400 Heart rate 91 /min No Primary Care Physician [facility] 01-21-2025 13:00-0400 Respiratory rate 18 /min No Primary Care Physician [facility] 01-21-2025 13:00-0400 SaO2% (BldA) [Mass fraction] 97 % No Primary Care Physician [facility] 01-21-2025 13:00-0400 Systolic blood pressure 100 mm[Hg] No Primary Care Physician [facility] 01-21-2025 05:13-0400 Body mass index (BMI) [Ratio] 35.8 kg/m2 No Primary Care Physician [facility] 01-21-2025 05:13-0400 Body weight 110.1 kg No Primary Care Physician [facility] 01-17-2025 14:51-0400 Body height 175.26 cm No Primary Care Physician [facility] 01-09-2025 14:01-0400 Heart rate 69 /min No Primary Care Physician [facility] 01-09-2025 14:01-0400 Respiratory rate 16 /min No Primary Care Physician [facility] 01-09-2025 14:01-0400 SaO2% (BldA) [Mass fraction] 100 % No Primary Care Physician [facility] 01-09-2025 14:00-0400 Diastolic blood pressure 59 mm[Hg] No Primary Care Physician [facility] 01-09-2025 14:00-0400 Systolic blood pressure 107 mm[Hg] No Primary Care Physician [facility] 01-09-2025 13:04-0400 Body temperature 98 [degF] No Primary Care Physician [facility] 01-09-2025 10:10-0400 Body height 175.26 cm No Primary Care Physician [facility] 01-09-2025 10:10-0400 Body mass index (BMI) [Ratio] 29.5 kg/m2 No Primary Care Physician [facility] 01-09-2025 10:10-0400 Body weight 90.6 kg No Primary Care Physician [facility] 01-05-2025 16:00-0400 Body temperature 98.1 [degF] No Primary Care Physician [facility] 01-05-2025 16:00-0400 Diastolic blood pressure 60 mm[Hg] No Primary Care Physician [facility] 01-05-2025 16:00-0400 Heart rate 73 /min No Primary Care Physician [facility] 01-05-2025 16:00-0400 Respiratory rate 16 /min No Primary Care Physician [facility] 01-05-2025 16:00-0400 SaO2% (BldA) [Mass fraction] 94 % No Primary Care Physician [facility] 01-05-2025 16:00-0400 Systolic blood pressure 103 mm[Hg] No Primary Care Physician [facility] 01-05-2025 04:44-0400 Body mass index (BMI) [Ratio] 29.9 kg/m2 No Primary Care Physician [facility] 01-05-2025 04:44-0400 Body weight 92.2 kg No Primary Care Physician [facility] 01-02-2025 10:11-0400 Body height 175.26 cm No Primary Care Physician [facility] 01-02-2025 06:34-0400 Body temperature 97.8 [degF] No Primary Care Physician [facility] 01-02-2025 06:34-0400 Diastolic blood pressure 73 mm[Hg] No Primary Care Physician [facility] 01-02-2025 06:34-0400 Heart rate 68 /min No Primary Care Physician [facility] 01-02-2025 06:34-0400 Respiratory rate 20 /min No Primary Care Physician [facility] 01-02-2025 06:34-0400 SaO2% (BldA) [Mass fraction] 100 % No Primary Care Physician [facility] 01-02-2025 06:34-0400 Systolic blood pressure 105 mm[Hg] No Primary Care Physician [facility] 01-02-2025 02:59-0400 Body height 175.26 cm No Primary Care Physician [facility] 01-02-2025 02:59-0400 Body mass index (BMI) [Ratio] 27.5 kg/m2 No Primary Care Physician [facility] 01-02-2025 02:59-0400 Body weight 84.5 kg No Primary Care Physician [facility] 12-30-2024 05:24-0400 Body temperature 97.9 [degF] No Primary Care Physician [facility] 12-30-2024 05:24-0400 Diastolic blood pressure 52 mm[Hg] No Primary Care Physician [facility] 12-30-2024 05:24-0400 Heart rate 71 /min No Primary Care Physician [facility] 12-30-2024 05:24-0400 Respiratory rate 18 /min No Primary Care Physician [facility] 12-30-2024 05:24-0400 SaO2% (BldA) [Mass fraction] 93 % No Primary Care Physician [facility] 12-30-2024 05:24-0400 Systolic blood pressure 93 mm[Hg] No Primary Care Physician [facility] 12-30-2024 01:07-0400 Body height 175.26 cm No Primary Care Physician [facility] 12-30-2024 01:07-0400 Body mass index (BMI) [Ratio] 28.4 kg/m2 No Primary Care Physician [facility] 12-30-2024 01:07-0400 Body weight 87.3 kg No Primary Care Physician [facility] 12-26-2024 14:27-0400 Body temperature 97 [degF] No Primary Care Physician [facility] 12-26-2024 14:27-0400 Diastolic blood pressure 58 mm[Hg] No Primary Care Physician [facility] 12-26-2024 14:27-0400 Heart rate 64 /min No Primary Care Physician [facility] 12-26-2024 14:27-0400 Respiratory rate 16 /min No Primary Care Physician [facility] 12-26-2024 14:27-0400 SaO2% (BldA) [Mass fraction] 97 % No Primary Care Physician [facility] 12-26-2024 14:27-0400 Systolic blood pressure 90 mm[Hg] No Primary Care Physician [facility] 12-26-2024 10:00-0400 Body height 175.26 cm No Primary Care Physician [facility] 12-26-2024 10:00-0400 Body mass index (BMI) [Ratio] 29.7 kg/m2 No Primary Care Physician [facility] 12-26-2024 10:00-0400 Body weight 91.4 kg No Primary Care Physician [facility] 12-02-2024 12:13-0400 Body temperature 98.7 [degF] No Primary Care Physician [facility] 12-02-2024 12:13-0400 Diastolic blood pressure 68 mm[Hg] No Primary Care Physician [facility] 12-02-2024 12:13-0400 Heart rate 86 /min No Primary Care Physician [facility] 12-02-2024 12:13-0400 Respiratory rate 18 /min No Primary Care Physician [facility] 12-02-2024 12:13-0400 SaO2% (BldA) [Mass fraction] 97 % No Primary Care Physician [facility] 12-02-2024 12:13-0400 Systolic blood pressure 117 mm[Hg] No Primary Care Physician [facility] 12-02-2024 02:57-0400 Body mass index (BMI) [Ratio] 33 kg/m2 No Primary Care Physician [facility] 12-02-2024 02:57-0400 Body weight 101.6 kg No Primary Care Physician [facility] 11-29-2024 09:53-0400 Body height 175.26 cm No Primary Care Physician [facility] 11-25-2024 18:31-0400 Body temperature 98.2 [degF] No Primary Care Physician [facility] 11-25-2024 18:31-0400 Diastolic blood pressure 80 mm[Hg] No Primary Care Physician [facility] 11-25-2024 18:31-0400 Heart rate 97 /min No Primary Care Physician [facility] 11-25-2024 18:31-0400 Respiratory rate 18 /min No Primary Care Physician [facility] 11-25-2024 18:31-0400 SaO2% (BldA) [Mass fraction] 98 % No Primary Care Physician [facility] 11-25-2024 18:31-0400 Systolic blood pressure 122 mm[Hg] No Primary Care Physician [facility] 11-24-2024 15:17-0400 Body weight 102.7 kg No Primary Care Physician [facility] 11-21-2024 05:32-0400 Body mass index (BMI) [Ratio] 33.4 kg/m2 No Primary Care Physician [facility] 11-21-2024 05:00-0400 Heart rate 77 /min No Primary Care Physician [facility] 11-21-2024 04:51-0400 Body temperature 98.2 [degF] No Primary Care Physician [facility] 11-21-2024 04:51-0400 Diastolic blood pressure 57 mm[Hg] No Primary Care Physician [facility] 11-21-2024 04:51-0400 Respiratory rate 16 /min No Primary Care Physician [facility] 11-21-2024 04:51-0400 SaO2% (BldA) [Mass fraction] 97 % No Primary Care Physician [facility] 11-21-2024 04:51-0400 Systolic blood pressure 127 mm[Hg] No Primary Care Physician [facility] 11-21-2024 01:32-0400 Body height 175.26 cm No Primary Care Physician [facility] 11-21-2024 01:32-0400 Body mass index (BMI) [Ratio] 34.3 kg/m2 No Primary Care Physician [facility] 11-21-2024 01:32-0400 Body weight 105.4 kg No Primary Care Physician [facility] 11-12-2024 18:03-0400 SaO2% (BldA) [Mass fraction] 99 % KATHIE POWERS [facility] Comment on above: Order Comment: Specimen Type: ARTERIAL B LOOD SPECIMENOrdering Facility: [facility] Address: [address] [place] [address] Performed By: #### A LLBG ####[facility] LABCLIA [id number] [place] [address] [place] 11-10-2024 23:40-0400 Body temperature 97.8 [degF] No Primary Care Physician [facility] 11-10-2024 23:40-0400 Diastolic blood pressure 70 mm[Hg] No Primary Care Physician [facility] 11-10-2024 23:40-0400 Heart rate 110 /min No Primary Care Physician [facility] 11-10-2024 23:40-0400 Respiratory rate 18 /min No Primary Care Physician [facility] 11-10-2024 23:40-0400 SaO2% (BldA) [Mass fraction] 97 % No Primary Care Physician [facility] 11-10-2024 23:40-0400 Systolic blood pressure 116 mm[Hg] No Primary Care Physician [facility] 11-10-2024 04:54-0400 Body mass index (BMI) [Ratio] 36.7 kg/m2 No Primary Care Physician [facility] 11-10-2024 04:54-0400 Body weight 112.8 kg No Primary Care Physician [facility] 11-09-2024 14:30-0400 Body height 175.26 cm No Primary Care Physician [facility] 10-29-2024 01:23-0400 Body temperature 97.4 [degF] No Primary Care Physician [facility] 10-29-2024 01:23-0400 Diastolic blood pressure 54 mm[Hg] No Primary Care Physician [facility] 10-29-2024 01:23-0400 Heart rate 77 /min No Primary Care Physician [facility] 10-29-2024 01:23-0400 Respiratory rate 14 /min No Primary Care Physician [facility] 10-29-2024 01:23-0400 SaO2% (BldA) [Mass fraction] 97 % No Primary Care Physician [facility] 10-29-2024 01:23-0400 Systolic blood pressure 97 mm[Hg] No Primary Care Physician [facility] 10-28-2024 21:43-0400 Body mass index (BMI) [Ratio] 30.4 kg/m2 No Primary Care Physician [facility] 10-28-2024 21:43-0400 Body weight 93.1 kg No Primary Care Physician [facility] 10-28-2024 17:13-0400 Body height 175.01 cm No Primary Care Physician [facility] 10-04-2024 21:45-0500 Diastolic blood pressure 89 mm[Hg] Maurice wen MD Work Phone: [phone] [place] [address] 10-04-2024 21:45-0500 Heart rate 94 /min Maurice Rincon MD Work Phone: [facility] 10-04-2024 21:45-0500 Respiratory rate 18 /min Maurice Rincon MD Work Phone: [facility] 10-04-2024 21:45-0500 SaO2% (BldA) [Mass fraction] 100 % Maurice Rincon MD Work Phone: [facility] 10-04-2024 21:45-0500 Systolic blood pressure 152 mm[Hg] Maurice parada MD Work Phone: [facility] 10-04-2024 12:03-0500 Body temperature 97.59 [degF] Maurice Rincon MD Work Phone: [facility] 10-04-2024 12:03-0500 Body weight 117.48 kg Maurice Rincon MD Work Phone: [facility] 09-29-2024 10:21-0500 Body temperature 97.3 [degF] No Primary Care Physician [facility] 09-29-2024 10:21-0500 Diastolic blood pressure 74 mm[Hg] No Primary Care Physician [facility] 09-29-2024 10:21-0500 Heart rate 81 /min No Primary Care Physician [facility] 09-29-2024 10:21-0500 Respiratory rate 18 /min No Primary Care Physician [facility] 09-29-2024 10:21-0500 Systolic blood pressure 138 mm[Hg] No Primary Care Physician [facility] 09-15-2024 03:49-0500 Body temperature 97.8 [degF] No Primary Care Physician [facility] 09-15-2024 03:49-0500 Diastolic blood pressure 70 mm[Hg] No Primary Care Physician [facility] 09-15-2024 03:49-0500 Heart rate 80 /min No Primary Care Physician [facility] 09-15-2024 03:49-0500 Respiratory rate 17 /min No Primary Care Physician [facility] 09-15-2024 03:49-0500 SaO2% (BldA) [Mass fraction] 96 % No Primary Care Physician [facility] 09-15-2024 03:49-0500 Systolic blood pressure 142 mm[Hg] No Primary Care Physician [facility] 09-14-2024 04:07-0500 Body mass index (BMI) [Ratio] 36.7 kg/m2 No Primary Care Physician [facility] 09-14-2024 04:07-0500 Body weight 112.8 kg No Primary Care Physician [facility] 09-10-2024 14:03-0500 Body height 175.26 cm No Primary Care Physician [facility] 09-07-2024 01:24-0500 Inhaled oxygen concentration 21 % No Primary Care Physician [facility] 09-06-2024 05:00-0500 Inhaled oxygen flow rate 8 L/min No Primary Care Physician [facility] 09-02-2024 15:36-0500 Body weight 104 kg No Primary Care Physician [facility] 09-02-2024 14:54-0500 Body temperature 98.1 [degF] No Primary Care Physician [facility] 09-02-2024 14:54-0500 Diastolic blood pressure 62 mm[Hg] No Primary Care Physician [facility] 09-02-2024 14:54-0500 Heart rate 60 /min No Primary Care Physician [facility] 09-02-2024 14:54-0500 Respiratory rate 18 /min No Primary Care Physician [facility] 09-02-2024 14:54-0500 SaO2% (BldA) [Mass fraction] 99 % No Primary Care Physician [facility] 09-02-2024 14:54-0500 Systolic blood pressure 118 mm[Hg] No Primary Care Physician [facility] 09-02-2024 03:57-0500 Body mass index (BMI) [Ratio] 33.8 kg/m2 No Primary Care Physician [facility] 08-21-2024 16:33-0500 Body temperature 98.5 [degF] No Primary Care Physician [facility] 08-21-2024 16:33-0500 Diastolic blood pressure 78 mm[Hg] No Primary Care Physician [facility] 08-21-2024 16:33-0500 Heart rate 61 /min No Primary Care Physician [facility] 08-21-2024 16:33-0500 Respiratory rate 12 /min No Primary Care Physician [facility] 08-21-2024 16:33-0500 SaO2% (BldA) [Mass fraction] 97 % No Primary Care Physician [facility] 08-21-2024 16:33-0500 Systolic blood pressure 114 mm[Hg] No Primary Care Physician [facility] 08-21-2024 13:52-0500 Body mass index (BMI) [Ratio] 33 kg/m2 No Primary Care Physician [facility] 08-21-2024 13:52-0500 Body weight 101.5 kg No Primary Care Physician [facility] Encounters Encounter Date Encounter Type Care Provider Facility Start: 04-07-2025 Dr. Maria Guadalupe Shore MD - Medical Surgical 3 Work Phone: Start: 04-07-2025 Evaluation and manag ement of inpatient Josy Elias [facility]ER [facility] Work Phone: -Medical Surgical 3 Start: 04-07-2025 ambulatory Maria Guadalupe Shore Facility :[facility] Start: 04-07-2025 Dr. Maria Guadalupe Shore MD - [facility] Work Phone: Start: 04-03-2025 End: 04-03-2025 Josy Obrien [facility] Work Phone: -Emergency Department Work Phone: Start: 04-03-2025 End: 04-03-2025 Emergency department patient visit [facility] Facility:[facility] Start: 03-30-2025 End: 03-30-2025 Dr. Roby Balderas MD -Surgical Day Care Start: 03-30-2025 End: 03-[facility] Start: 03-25-2025 ambulatory [facility] Start: 03-16-2025 ambulatory Jerald Sherwood Facility:[facility] Start: 03-11-2025 End: 03-11-2025 No Primary Care Physician -Emergency Department Work Phone: Start: 03-11-2025 End: 03-11-2025 Emergency department patient visit No Primary Care Physician -Emergency Department Start: 03-10-2025 End: 03-10-2025 Dr. Roby Balderas MD -[facility] Work Phone: Start: 03-10-2025 End: 03-10-2025 ambulatory Roby Balderas Facility[place] Start: 03-04-2025 End: 03-04-2025 No Primary Care Physician -Ultrasound [facility] Work Phone: Start: 03-04-2025 End: 03-04-2025 ambulatory ECHO LOPEZ Facility:[facility] Start: 02-27-2025 Dr. Rick gutierrez DO -[facility] Work Phone: Start: 02-26-2025 Dr. Rick gutierrez DO -[facility] Work Phone: Start: 02-25-2025 Niranjan Li DO -[facility] Start: 02-25-2025 End: 02-27-2025 ambulatory Kathie Powers Facility:[facility] Start: 02-25-2025 End: 02-27-2025 Dr. Rick Carlin DO -Progressive Care Unit Work Phone: Start: 02-24-2025 End: 02-25-2025 Julita Glover -[facility] Work Phone: Start: 02-24-2025 End: 02-25-2025 ambulatory Josy Elias Facility:[facility] Start: 02-17-2025 Niranjan Li DO -[facility] Start: 02-17-2025 Dr. Anurag Irene MD -[facility] Work Phone: Start: 02-16-2025 End: 02-17-2025 ambulatory Jae Ash Facility:[facility] Start: 02-16-2025 Evaluation and manag ement of inpatient No Primary Care Physician -Medical Surgical 3 Start: 02-16-2025 End: 02-17-2025 Dr. Jae Ash DO -Medical Surgical 3 Work Phone: Start: 02-16-2025 End: 02-16-2025 Dr. Jerald Sherwood MD -Laboratory [facility] Start: 02-16-2025 End: 02-16-2025 ambulatory Jerald Sherwood Facility:[facility] Start: 02-14-2025 ambulatory NONE PHYSICIAN Facility :[facility] Start: 02-13-2025 End: 02-13-2025 No Primary Care Physician -Emergency Department Work Phone: Start: 02-13-2025 End: 02-13-2025 Emergency department patient visit No Primary Care Physician -Emergency Department Start: 02-11-2025 End: 02-11-2025 ambulatory No Primary Care Physician -Ultrasound [facility] Start: 02-11-2025 End: 02-11-2025 Mina Blood DO -Ultrasound [facility] Work Phone: Start: 02-11-2025 End: 02-11-2025 ambulatory Jerald Sherwood Facility:[facility] Start: 02-07-2025 End: 02-08-2025 No Primary Care Physician -Emergency Department Work Phone: Start: 02-07-2025 End: 02-08-2025 Emergency department patient visit No Primary Care Physician -Emergency Department Start: 01-31-2025 Dr. Yaritza Leo [facility] Work Phone: Start: 01-30-2025 Dr. Yaritza Leo [facility] Work Phone: Start: 01-29-2025 Dr. Yaritza Leo [facility] Work Phone: Start: 01-28-2025 ambulatory Boone Izquierdo Facility:[facility] Start: 01-28-2025 End: 01-31-2025 Evaluation and management of inpatient No Primary Care Physician [facility] Work Phone: Start: 01-28-2025 End: 01-31-2025 Dr. Boone Izquierdo [facility] Work Phone: Start: 01-21[facility] Start: 01-20-2025 Dr. Anurag Irene MD [facility] Work Phone: Start: 01-19-2025 [facility] Start: 01-18-2025 [facility] Start: 01-17-2025 [facility] Start: 01-16-[address] Dr[address] [facility] Work Phone: Start: 01-15-[address] Dr[address] [facility] Work Phone: Start: 01-14-2025 Dr. Cielo Lal [facility] Work Phone: Start: 01-13-2025 Dr. Cielo Lal [facility] Work Phone: Start: 01-12-2025 Dr. Cielo Tovar MD - [facility] Work Phone: Start: 01-11-2025 Dr. Jefferson Malave MD - [facility] Start: 01-11-2025 Dr. Cielo Tovar MD - [facility] Work Phone: Start: 01-11-2025 Dr. Bola Meraz DO -[facility] -[facility] Start: 01-10-2025 Dr. Cielo Tovar MD - [facility] Work Phone: Start: 01-09-2025 ambulatory Yaritza Leo [facility] Start: 01-09-2025 End: 01-21-2025 Evaluation and management of inpatient No Primary Care Physician [facility] Work Phone: Start: 01-09-2025 End: 01-21-2025 Dr. Yaritza Leo DO -Intensive Care Unit Work Phone: Start: 01-05-2025 Dr. Hill Acuña MD [facility] Work Phone: Start: 01-04-2025 Dr. Hill Acuña MD [facility] Work Phone: Start: 01-03-2025 Dr. Hill Acuña MD [facility] Work Phone: Start: 01-02-2025 ambulatory Butser Fuchs Fac ility:[facility] Start: 01-02-2025 End: 01-05-2025 Evaluation and management of inpatient No Primary Care Physician [facility] Work Phone: Start: 01-02-2025 End: 01-05-2025 Dr. Buster Fuchs MD -Progressive Care Unit Work Phone: Start: 12-30-2024 End: 12-30-2024 No Primary Care Physician -Emergency Department Work Phone: Start: 12-30-2024 End: 12-30-2024 Emergency department patient visit No Primary Care Physician [facility] Work Phone: Start: 12-26-2024 End: 12-26-2024 No Primary Care Physician -Emergency Department Work Phone: Start: 12-26-2024 End: 12-26-2024 Emergency department patient visit No Primary Care Physician [facility] Work Phone: Start: 12-15-2024 End: 12-15-2024 ambulatory No Primary Care Physician [facility] Work Phone: Start: 12-15-2024 End: 12-15-2024 Josy Elias HEADER [facility] -Ultrasound [facility] Work Phone: Start: 12-15-2024 End: 12-15-2024 ambulatory [facility] Facility:[facility] Start: 12-07-2024 End: 12-10-2024 ambulatory Eva Pichardo MD Work Phone: Urology Start: 12-07-2024 End: 12-07-2024 Josy Elias [facility]ER [facility] -Laboratory, [facility] Start: 12-07-2024 End: 12-07-2024 ambulatory [facility] Facility:[facility] Start: 12-02-2024 Dr. Hill Acuña MD [...] Evaluation and management of inpatient Hill Acuña Facility:[facility] Start: 11-28-2024 End: 12-02-2024 Dr. Hill Acuña MD -Progressive Care Unit Work Phone: Start: 11-25-2024 Dr. Anurag Irene MD -[facility] Work Phone: Start: 11-24-2024 Dr. Anurag Irene MD -[facility] Work Phone: Start: 11-23-2024 ambulatory Jae Ash Fac ility:[facility] Start: 11-23-2024 End: 11-25-2024 Evaluation and management of inpatient Jae Ash Facility:[facility] Start: 11-23-2024 End: 11-25-2024 Dr. Anurag Irene MD -Medical Surgical 3 Work Phone: Start: 11-22-2024 Dr. Anurag Irene MD -[facility] Work Phone: Start: 11-21-2024 ambulatory Jae Ash [facility] ility:[facility] Start: 11-21-2024 observation encounter No Prima Care Physician [facility] Work Phone: Start: 11-21-2024 Dr. Jae Ash DO -Medical Surgical 3 Work Phone: Start: 11-18-2024 Patient encounter status Jeremi Abreu RN Work Phone: [facility] Work Phone: Start: 11-18-2024 End: [...] state Izabela Estuardo Candice DDS Work Phone: [facility] Start: 11-15-2024 End: 11-15-2024 Social Work Marah Arauz FINGERPRINTER Work Phone: [facility] Start: 11-12-2024 End: 11-12-2024 Patient encounter status Lizett Guzman [facility] Start: 11-12-2024 End: 11-12-2024 Orders Only Liver Txp Coordinator Work Phone: Transplant Center Comment on above: Metabolic dysfunctio n-associated steatohepatitis (MASH) (Primary Dx) Transplant Evaluatio n Consent Patient Education (T ransplant) Liver transplant can didate (Primary Dx); Metabolic dysfunction-associated steatohepatitis (MASH) Start: 11-11-2024 End: 11-18-2024 Evaluation and management of inpatient KATHIE POWERS Facility:[facility] Start: 11-10-2024 Dr. Kathie Powers MD [...] Physicians Work Phone: Start: 11-04-2024 Dr. [facility] Work Phone: Start: 11-03-2024 Dr. Hill Acuña MD -[facility] Work Phone: Start: 11-02-2024 Dr. Hill Acuña MD -[facility] Work Phone: Start: 11-01-2024 Dr. Hill Acuña MD -[facility] Work Phone: Start: 11-01-2024 Niranjan Li DO -[facility] Start: 10-31-2024 Dr. Buster LalPrincess [facility] Work Phone: Start: 10-30-2024 Niranjan Li DO -[facility] Start: 10-30-2024 Dr. Buster Fuchs MD -[facility] Work Phone: Start: 10-29-2024 Dr. Bola Meraz DO [facility] Start: 10-29-2024 ambulatory John Paul Kumaricks Facil ity:[facility] Start: 10-29-2024 End: 11-11-2024 Evaluation and management of inpatient Dr. Hill Caro DO -Intensive Care Unit Work Phone: Start: 10-29-2024 End: 11-11-2024 Dr. Kathie Powers MD -Progressive Care Unit Work Phone: Start: 10-19-2024 ambulatory [facility] Facili ty:[facility] Start: 10-04-2024 End: 10-04-2024 Emergency department patient visit MAURICE RINCON [facility] Emergency Medicine Comment on above: Other ascites (Prima ry Dx); Abdominal pain, generalized; Other cirrhosis of liver; Peripheral edema; Coagulopathy (Multi); Hyperbilirubinemia; Cirrhosis of liver with ascites, unspecified hepatic cirrhosis type (Multi) Start: 09-29-2024 ambulatory [facility] Facili ty:[facility] Start: 09-29-2024 Non-patient / Non-visit Jasmine nunez HEADER [facility]-C -[facility] Start: 09-29-2024 Jasmine Morocho NP-C - [facility] Start: 09-29-2024 End: 09-29-2024 ambulatory No Primary Care Physician [facility] Work Phone: Start: 09-29-2024 End: 09-29-2024 Patient encounter procedure No Primary Care Physician -Ultrasound, [facility] Work Phone: Start: 09-29-2024 End: 09-29-2024 No Primary Care Physician -Ultrasound, [facility] Work Phone: Start: 09-29-2024 End: 09-29-2024 [facility] Facility:[facility] Start: 09-14-2024 Non-patient / Non-visit Dr. Boone James [facility] Work Phone: Start: 09-14-2024 Dr. Boone Izquierdo [facility] Work Phone: Start: 09-13-2024 Non-patient / Non-visit Dr. Boone James [facility] Work Phone: Start: 09-13-2024 Dr. Boone Izquierdo [facility] Work Phone: Start: 09-12-2024 Non-patient / Non-visit Dr. Slaughter [facility] In[facility] Work Phone: Start: 09[facility]20[facility]: Start: 09-11-2024 Non-patient / Non-visit Dr. Slaughter [facility] Work Phone: Start: 09-11-2024 Dr. Rowe [facility] Work Phone: Start: 09-10-2024 Non-patient / Non-visit Dr. Slaughter [facility] Work Phone: Start: 09-10-2024 [facility] Work Phone: Start: 09-09-2024 Non-patient / Non-visit Dr. Noonan [facility] Work Phone: Start: 09-09-2024 [facility] Work Phone: Start: 09-08-2024 Non-patient / Non-visit Dr. Anurag Irene MD -[facility] Work Phone: Start: 09-08-2024 Dr. Anurag Irene MD [facility] In[facility] Work Phone: Start: 09-07-2024 Non-patient / Non-visit Dr. Anurag Irene MD [facility] In[facility] Work Phone: Start: 09-07-2024 Dr. Anurag Irene MD -[facility] Work Phone: Start: 09-06-2024 Non-patient / Non-visit Dr. Anurag Irene MD [facility] Work Phone: Start: 09-06-2024 Dr. Anurag Irene MD -[facility] [facility] Inpatient Physicians Work Phone: Start: 09-05-2024 ambulatory [place] Facili ty:[facility] Start: 09-05-2024 End: 09-15-2024 Evaluation and management of inpatient Dr. Boone Izquierdo [facility] Work Phone: Start: 09-05-2024 End: 09-15-2024 Dr. Boone Izquierdo [facility] Work Phone: Start: 09-02-2024 Non-patient / Non-visit Dr. Lissette Carlin [facility] Inpatient Physicians Work Phone: Start: 09-02-2024 Dr. Rick gutierrez [facility] Inpatient Physicians Work Phone: Start: 09-01-2024 Non-patient / Non-visit Niranjan Frie nd DO -[facility] Start: 09-01-2024 Niranjan Friend DO -[facility] Start: 09-01-2024 Non-patient / Non-visit Dr. Lissette Carlin [facility] Inpatient Physicians Work Phone: Start: 09-01-2024 Dr. Rick gutierrez [facility] Inpatient Physicians Work Phone: Start: 08-31-2024 Non-patient / Non-visit Niranjan Frie nd DO -[facility] Start: 08-31-2024 Niranjan Friend DO -[facility] Start: 08-31-2024 Non-patient / Non-visit Dr. Lissette Carlin DO [facility] Work Phone: Start: 08-31-2024 Dr. Rick gutierrez [facility] Inpatient Physicians Work Phone: Start: 08-31-2024 Non-patient / Non-visit Dr. Bola Patiño own DO -[facility] Start: 08-31-2024 Dr. Bola Meraz DO -[facility] Start: 08-30-2024 Non-patient / Non-visit Niranjan Sharyn nd DO -[facility] Start: 08-30-2024 Niranjan Friend DO -[facility] Start: 08-30-2024 Non-patient / [facility] Work Phone: Start: 08-30-2024 Dr. Rick gutierrez [facility] Inpatient Physicians Work Phone: Start: 08-30-2024 Non-patient / Non-visit Dr. Bola Patiño own DO -[facility] Start: 08-30-2024 Dr. Bola Meraz DO -[facility] Start: 08-29-2024 ambulatory Bola Kt Facility:[facility] Start: 08-29-2024 End: 09-02-2024 Evaluation [...] Date Procedure Procedure Detail Performing Clinician Start: 04-07-2025 Urine microscopy: red cells Josy Elias NP-C Work Phone: Start: 04-07-2025 Urnls dip stick/tabl et reagent auto microscopy Josy Elias HEADER UP-C Work Phone: Start: 04-07-2025 Blood count smear mc rscp w/mnl difrntl wbc count Josy Elias [facility] Work Phone: Start: 04-07-2025 Mean corpuscular hem oglobin concentration determination Josy Elias [facility] Work Phone: Start: 04-07-2025 Nucleated red blood cell count procedure Josy Elias [facility] Work Phone: Start: 04-07-2025 Platelet mean volume determination Josy Elias [facility] Work Phone: Start: 04-07-2025 Serum inorganic phos phate measurement Josy Elias [facility] Work Phone: Start: 04-07-2025 Triacylglycerol lipa se measurement Josy Elias [facility] Work Phone: Start: 03-11-2025 Blood count smear mc rscp [...] Start: 01-09-2025 Assay of lactate No [facility] Care Physician Start: 01-09-2025 Vitamin D, 25-hydrox [...] Physician Start: 11-28-2024 Assay of lactate No [facility] Care Physician Start: 11-28-2024 Urine microscopy: [...] Comment: Speci men Type: BLOOD SPECIMENOrdering Facility: [facility] Address: [address] [place] [address] Performed By: #### T SCR ####CC MAIN BLOOD BANKCLIA [id number] [address] [place] Start: 11-16-2024 End: 11-16-2024 Colonoscopy Jeremi Abreu RN Work Phone: Start: 11-15-2024 Antibody screen KATHIE P IERCE Comment on above: Order Comment: Speci men Type: BLOOD SPECIMENOrdering Facility: [facility] Address: [address] [place] [address] Performed By: #### T SCR ####CC MAIN BLOOD BANKCLIA [id number] [address] [place] Start: 11-13-2024 Lipid 1996 panel - S sandie or Plasma Marah Arauz FINGERPRINTER Work Phone: Start: 11-12-2024 Antibody screen KATHIE P IERCE Comment on above: Order Comment: Speci men Type: BLOOD SPECIMENOrdering Facility: [facility] Address: [address] [place] [address] Performed By: #### T SCR ####CC MAIN BLOOD BANKCLIA [id number] [address] [place] Start: 11-10-2024 Urine [...] Physician Start: 11-09-2024 Assay of lactate No [facility] Care Physician Start: 11-08-2024 Serum inorganic [...] Physician Start: 09-05-2024 Assay of lactate No [facility] Care Physician Start: 09-05-2024 Folic acid [...] DTaP,Tdap,Td Vaccine (2 - Td or Tdap) [facility] Start: 11-17-2029 Prostate specific antigen measurement Prostate Cancer Screening Discussion [facility] Start: 11-13-2029 Lipid panel Lipid Screening [facility] Start: 11-19-2027 Diabetes Screening Diabetes Screening [facility] Start: 11-17-2027 Diabetes Screening Diabetes Screening [facility] Start: 11-15-2027 Diabetes Screening Diabetes Screening [facility] Start: 11-13-2027 Diabetes Screening Diabetes Screening [facility] Start: 11-18-2025 Creatinine measurement Serum Creatinine [facility] Start: 11-16-2025 Creatinine measurement Serum Creatinine [facility] Start: 11-16-2025 Screening for malignant neoplasm of colon [facility] Start: 11-15-2025 Creatinine measurement Serum Creatinine [facility] Start: 11-12-2025 Creatinine measurement Serum Creatinine [facility] Start: 05-16-2025 Hepatitis A Vaccine (2 of 2 - Risk 2-dose series) Hepatitis A Vaccine (2 of 2 - Risk 2-dose series) [facility] Start: 04-07-2025 Following clinical pathway protocol [facility] Start: 04-07-2025 [facility] Start: 04-07-2025 Sars-cov-2 [facility] Start: 04-07-2025 Verification routine [facility] Start: 04-07-2025 Hospital admission, emergency, from emergency room, medical nature [facility] Start: 04-07-2025 Admission procedure [facility] Start: 04-07-2025 [facility] Start: 04-03-2025 [facility] Start: 03-30-2025 Anesthesia closed chest w/bronchoscopy nos [facility] Start: 03-30-2025 Insertion indwelling tunneled pleural catheter [facility] Start: 03-30-2025 Patient discharge [facility] Start: 03-11-2025 [facility] Start: 03-04-2025 Following clinical pathway protocol [facility] Start: 03-02-2025 End: 03-02-2025 Patient encounter procedure 03/02/2025 2:20 PM EDT Office Visit Family Medicine [address] [address] Alex Alexandre MD [address] [place], [place] [id number] Hospital discharge, diabetes mx, need for repeat vaccines, and consideration of CT chest [facility] Comment on above: Hospital discharge, diabetes mx, need fo r repeat vaccines, and consideration of CT chest Start: 02-27-2025 Patient discharge [facility] Start: 02-26-2025 [facility] Start: 02-26-2025 Referral to occupational therapist [facility] Start: 02-26-2025 Referral to service [facility] Start: 02-25-2025 Following clinical pathway protocol [facility] Start: 02-25-2025 Assessment of risk of venous thromboembolism [facility] Start: 02-25-2025 Care regimes management [facility] Start: 02-25-2025 Inhalation therapy procedure [facility] Start: 02-25-2025 Insertion of catheter into peripheral vein [facility] Start: 02-25-2025 Measuring intake and output [facility] Start: 02-25-2025 Notification of physician [facility] Start: 02-25-2025 Providing care according to standard [facility] Start: 02-25-2025 Provision of activity privileges [facility] Start: 02-25-2025 Referral to gastroenterology service [facility] Start: 02-25-2025 Referral to service [facility] Start: 02-25-2025 End: 02-25-2025 [facility] Start: 02-25-2025 Admission procedure [facility] Start: 02-25-2025 Patient referral to dietitian [facility] Start: 02-17-2025 [facility] Start: 02-17-2025 Referral to service [facility] Start: 02-17-2025 Admission procedure [facility] Start: 02-17-2025 Referral to occupational therapist [facility] Start: 02-17-2025 Referral to service [facility] Start: 02-17-2025 Patient discharge [facility] Start: 02-16-2025 Application of intermittent pneumatic compression device [facility] Start: 02-16-2025 Ambulation without limitation [facility] Start: 02-16-2025 Assessment of risk of venous thromboembolism [facility] Start: 02-16-2025 Incentive spirometry [facility] Start: 02-16-2025 Insertion of catheter into peripheral vein [facility] Start: 02-16-2025 Measuring intake and output [facility] Start: 02-16-2025 Oxygen therapy [facility] Start: 02-16-2025 Providing care according to standard [facility] Start: 02-16-2025 Referral to gastroenterology service [facility] Start: 02-16-2025 Referral to service [facility] Start: 02-16-2025 [facility] Start: 02-16-2025 Care of central venous catheter [facility] Start: 02-16-2025 Following clinical pathway protocol [facility] Start: 02-16-2025 Prothrombin time [facility] Start: 02-16-2025 Hospital admission, emergency, from emergency room, medical nature [facility] Start: 02-16-2025 Verification routine [facility] Start: 02-16-2025 Admission procedure [facility] Start: 02-16-2025 Acute hepatitis panel [facility] Start: 02-16-2025 Assay of ammonia [facility] Start: 02-16-2025 Collection venous blood venipuncture [facility] Start: 02-16-2025 Patient referral to dietitian [facility] Start: 02-13-2025 [facility] Start: 02-13-2025 Assay of lipase [facility] Start: 02-13-2025 Blood count complete auto&auto difrntl wbc [facility] Start: 02-13-2025 Comprehensive metabolic panel [facility] Start: 02-13-2025 Ct abdomen & pelvis w/contrast material [facility] Start: 02-13-2025 Emergency dept visit high severity&threat funcj [facility] Start: 02-13-2025 Ther proph/dx njx iv push single/1st sbst/drug [facility] Start: 02-13-2025 Therapeutic injection iv push each new drug [facility] Start: 02-08-2025 Centesis [facility] Start: 02-08-2025 End: 02-08-2025 [facility] Start: 02-02-2025 End: 02-02-2025 Patient encounter procedure 02/02/2025 9:20 AM EDT Office Visit [facility] [address] [place] [id number] Ray Vega MD [address] [place] [address] est care [facility] Comment on above: est care Start: 01-31-2025 Patient discharge [facility] Start: 01-31-2025 Referral to service [facility] Start: 01-31-2025 [facility] Start: 01-29-2025 [facility] Start: 01-28-2025 Blood culture [facility] Start: 01-28-2025 Application of intermittent pneumatic compression device [facility] Start: 01-28-2025 Following clinical pathway protocol [facility] Start: 01-28-2025 Assessment of risk of venous thromboembolism [facility] Start: 01-28-2025 Care regimes management [facility] Start: 01-28-2025 Documentation procedure [facility] Start: 01-28-2025 Insertion of catheter into peripheral vein [facility] Start: 01-28-2025 Notification of physician [facility] Start: 01-28-2025 Providing care according to standard [facility] Start: 01-28-2025 Provision of activity privileges [facility] Start: 01-28-2025 Referral to occupational therapist [facility] Start: 01-28-2025 Referral to service [facility] Start: 01-28-2025 Speech therapy assessment [facility] Start: 01-28-2025 End: 01-28-2025 [facility] Start: 01-28-2025 Admission procedure [facility] Start: 01-28-2025 End: 01-28-2025 [facility] Start: 01-28-2025 End: 01-28-2025 [facility] Start: 01-28-2025 Patient referral to dietitian [facility] Start: 01-21-2025 Patient discharge [facility] Start: 01-18-2025 End: 01-18-2025 Microbial culture, body fluid [facility] Start: 01-18-2025 Care planning and problem solving actions [facility] Start: 01-18-2025 Anaerobic microbial culture [facility] Start: 01-17-2025 [facility] Start: 01-16-2025 [facility] Start: 01-15-2025 [facility] Start: 01-14-2025 Consultation for pain [facility] Start: 01-14-2025 [facility] Start: 01-13-2025 Administration of blood product [facility] Start: 01-13-2025 [facility] Start: 01-12-2025 [facility] Start: 01-11-2025 Application of intermittent pneumatic compression device [facility] Start: 01-11-2025 Referral to general surgeon [facility] Start: 01-11-2025 [facility] Start: 01-10-2025 Care planning and problem solving actions [facility] Start: 01-09-2025 Assessment of risk of venous thromboembolism [facility] Start: 01-09-2025 Cardiac monitoring [facility] Start: 01-09-2025 Catheterization of vein [facility] Start: 01-09-2025 Inhalation therapy procedure [facility] Start: 01-09-2025 Insertion of catheter into peripheral vein [facility] Start: 01-09-2025 Measuring intake and output [facility] Start: 01-09-2025 Notification of physician [facility] Start: 01-09-2025 Patient referral to dietitian [facility] Start: 01-09-2025 Providing care according to standard [facility] Start: 01-09-2025 Referral to occupational therapist [facility] Start: 01-09-2025 Referral to service [facility] Start: 01-09-2025 Vital signs measurements [facility] Start: 01-09-2025 [facility] Start: 01-09-2025 End: 01-09-2025 Following clinical pathway protocol [facility] Start: 01-09-2025 Bacterial nucleic acid assay [facility] Start: 01-09-2025 Verification routine [facility] Start: 01-09-2025 Admission procedure [facility] Start: 01-09-2025 Hospital admission, emergency, from emergency room, medical nature [facility] Start: 01-09-2025 End: 01-09-2025 [facility] Start: 01-09-2025 Consultation [facility] Start: 01-05-2025 Patient discharge [facility] Start: 01-04-2025 [facility] Start: 01-03-2025 End: 01-03-2025 [facility] Start: 01-03-2025 End: 01-03-2025 Care regimes management [facility] Start: 01-03-2025 Notification of physician [facility] Start: 01-03-2025 [facility] Start: 01-02-2025 Application of intermittent pneumatic compression device [facility] Start: 01-02-2025 Ambulation without limitation [facility] Start: 01-02-2025 Assessment of risk of venous thromboembolism [facility] Start: 01-02-2025 Care regimes management [facility] Start: 01-02-2025 Insertion of catheter into peripheral vein [facility] Start: 01-02-2025 Measuring intake and output [facility] Start: 01-02-2025 Notification of physician [facility] Start: 01-02-2025 Providing care according to standard [facility] Start: 01-02-2025 Referral to occupational therapist [facility] Start: 01-02-2025 Referral to service [facility] Start: 01-02-2025 End: 01-02-2025 [facility] Start: 01-02-2025 Admission procedure [facility] Start: 01-02-2025 Verification routine [facility] Start: 01-02-2025 Hospital admission, emergency, from emergency room, medical nature [facility] Start: 01-02-2025 End: 01-02-2025 [facility] Start: 01-02-2025 Consultation [facility] Start: 01-02-2025 Patient referral to dietitian [facility] Start: 12-30-2024 Assay of magnesium [facility] Start: 12-30-2024 Assay of troponin quantitative [facility] Start: 12-30-2024 Basic metabolic panel calcium total [facility] Start: 12-30-2024 Blood count complete auto&auto difrntl wbc [facility] Start: 12-30-2024 Culture bacterial quanttative colony count urine [facility] Start: 12-30-2024 Culture bct isol&prsmptv id isolate ea urine [facility] Start: 12-30-2024 Ecg routine ecg w/least 12 lds trcg only w/o i&r [facility] Start: 12-30-2024 Emergency department visit high/urgent severity [facility] Start: 12-30-2024 Gluc bld gluc mntr dev cleared fda spec home use [facility] Start: 12-30-2024 Iv infusion hydration each additional hour [facility] Start: 12-30-2024 Iv infusion therapy/prophylaxis /dx 1st to 1 hr [facility] Start: 12-30-2024 Radiologic exam chest 2 views [facility] Start: 12-30-2024 Urnls dip stick/tablet reagent auto microscopy [facility] Start: 12-30-2024 [facility] Start: 12-30-2024 End: 12-30-2024 [facility] Start: 12-29-2024 End: 12-29-2024 Patient encounter procedure Endocrinology Comment on above: Diabetes maangement Diabetes maangement/ LVM OF SOONER APPOINTMENT 11/21 Start: 12-26-2024 [facility] Start: 12-26-2024 End: 12-26-2024 [facility] Start: 12-23-2024 End: 12-23-2024 Patient encounter procedure 12/23/2024 9:45 AM EDT Office Visit Vascular Medicine [address] [place] [address] Pamella Frances, [employer]PL[employer] WOODWORKER.RN [employer] [address] [place] [address] HOSPITAL FOLLOW UP Vascular Medicine Comment on above: HOSPITAL FOLLOW UP Start: 12-12-2024 Hepatitis B Vaccine (2 of 2 - CpG 2-dose series) Hepatitis B Vaccine (2 of 2 - CpG 2-dose series) [facility] Start: 12-07-2024 End: 12-07-2024 Patient encounter procedure 12/07/2024 3:45 PM EDT Office Visit Urology [address] [address] Eva Pichardo MD [address] [place] [address] L ureteral stent, s/p staghorn calculi [facility] Comment on above: L ureteral stent, s/p staghorn calculi Start: 12-07-2024 End: 12-07-2024 Patient encounter procedure 12/07/2024 11:20 AM EDT Office Visit [facility] [address] [place] [address] Ksenia Hoyos, [employer]PL[employer] WOODWORKER.RN [employer] [address] [place] [address] Hospital discharge, diabetes mx, need for repeat vaccines, and consideration of CT chest [facility] Comment on above: Hospital discharge, diabetes mx, need fo r repeat vaccines, and consideration of CT chest Start: 12-02-2024 Patient discharge [facility] Start: 12-01-2024 Consultation [facility] Start: 11-29-2024 [facility] Start: 11-28-2024 Enteric precautions [facility] Start: 11-28-2024 Application of intermittent pneumatic compression device [facility] Start: 11-28-2024 Following clinical pathway protocol [facility] Start: 11-28-2024 Assessment of risk of venous thromboembolism [facility] Start: 11-28-2024 Care regimes management [facility] Start: 11-28-2024 Insertion of catheter into peripheral vein [facility] Start: 11-28-2024 Measuring intake and output [facility] Start: 11-28-2024 Notification of physician [facility] Start: 11-28-2024 Providing care according to standard [facility] Start: 11-28-2024 Provision of activity privileges [facility] Start: 11-28-2024 Referral to occupational therapist [facility] Start: 11-28-2024 Referral to service [facility] Start: 11-28-2024 End: 11-28-2024 [facility] Start: 11-28-2024 Admission procedure [facility] Start: 11-28-2024 Inhalation therapy procedure [facility] Start: 11-28-2024 Patient referral to dietitian [facility] Start: 11-25-2024 Patient discharge [facility] Start: 11-24-2024 Administration of blood product [facility] Start: 11-23-2024 Admission procedure [facility] Start: 11-22-2024 [facility] Start: 11-21-2024 Care regimes management [facility] Start: 11-21-2024 Notification of physician [facility] Start: 11-21-2024 Following clinical pathway protocol [facility] Start: 11-21-2024 Ambulation without limitation [facility] Start: 11-21-2024 Assessment of risk of venous thromboembolism [facility] Start: 11-21-2024 Insertion of catheter into peripheral vein [facility] Start: 11-21-2024 Measuring intake and output [facility] Start: 11-21-2024 Providing care according to standard [facility] Start: 11-21-2024 Referral to occupational therapist [facility] Start: 11-21-2024 Referral to service [facility] Start: 11-21-2024 End: 11-21-2024 [facility] Start: 11-21-2024 Verification routine [facility] Start: 11-21-2024 Admission procedure [facility] Start: 11-21-2024 Hospital admission, emergency, from emergency room, medical nature [facility] Start: 11-21-2024 End: 11-21-2024 [facility] Start: 11-21-2024 Consultation [facility] Start: 11-18-2024 End: 11-18-2024 Patient encounter procedure 11/18/2024 3:30 PM EDT Office Visit Cardiology [address] [place] [address] G81-25; Liver Tx Evaluation; CONTACT PRECAUTIONS - C-Diff; last of the day Cardiology Comment on above: G81; Liver Tx Evaluation; CONTACT PRECAUTIONS - C-Diff; last of the day Start: 11-17-2024 End: 11-17-2024 Patient encounter procedure Pulmonary Medicine Comment on above: C-diff precuations/RA-2L/Reg WC Start: 11-15-2024 End: 11-15-2024 Patient encounter procedure 11/15/2024 1:15 PM EDT Office Visit Dentistry [address] [address] Izabela Harvey, DDS [address] [place] [address] BEDSIDE - TRANSPLANT [place] - [id number] - Consult Placed 11/12/24 Dentistry Comment on above: BEDSIDE - TRANSPLANT [place] - [id number] [phone] - Consult Placed 11/12/24 Start: 11-10-2024 Patient discharge [facility] Start: 11-09-2024 Consultation [facility] Start: 11-09-2024 Referral to gastroenterology service [facility] Start: 11-09-2024 Glucose measurement, body fluid [facility] Start: 11-08-2024 Urinary bladder residual urine study [facility] Start: 11-08-2024 [facility] Start: 11-05-2024 Removal of urinary catheter [facility] Start: 11-04-2024 [facility] Start: 10-31-2024 [facility] Start: 10-30-2024 Attention to flatus tube [facility] Start: 10-30-2024 Referral to gastroenterology service [facility] Start: 10-29-2024 Insertion of nasogastric tube [facility] Start: 10-29-2024 Bacteria identified in Blood by Culture Blood Culture [facility] Start: 10-29-2024 Referral to service [facility] Start: 10-29-2024 Application of intermittent pneumatic compression device [facility] Start: 10-29-2024 Following clinical pathway protocol [facility] Start: 10-29-2024 Cardiac monitoring [facility] Start: 10-29-2024 Catheterization of vein [facility] Start: 10-29-2024 Enteric precautions [facility] Start: 10-29-2024 Notification of physician [facility] Start: 10-29-2024 Vital signs measurements [facility] Start: 10-29-2024 [facility] Start: 10-29-2024 End: 10-29-2024 Consultation [facility] Start: 10-29-2024 Clostridioides difficile DNA [Presence] in Unspecified specimen by ANANTH with probe detection [facility] Start: 10-29-2024 Complete ultrasound of kidneys and bladder Kidney and Bladder [facility] Start: 10-29-2024 Lactoferrin [Presence] in Stool by Immunoassay [facility] Start: 10-29-2024 Nucleic acid assay [facility] Start: 10-29-2024 Admission procedure [facility] Start: 10-29-2024 End: 10-29-2024 Hospital admission, emergency, from emergency room, medical nature [facility] Start: 10-29-2024 End: 10-29-2024 [facility] Start: 10-29-2024 Patient referral to dietitian [facility] Start: 10-28-2024 [facility] Start: 10-28-2024 Bacteria identified in Urine by Culture Urine Culture [facility] Start: 09-14-2024 Patient discharge [facility] Start: 09-06-2024 Referral to service [facility] Start: 09-06-2024 Referral to occupational therapist [facility] Start: 09-06-2024 Referral to car wiper [facility] Start: 09-06-2024 Consultation [facility] Start: 09-06-2024 Care planning and problem solving actions [facility] Start: 09-06-2024 [facility] Start: 09-05-2024 Application of intermittent pneumatic compression device [facility] Start: 09-05-2024 Continuous positive airway pressure ventilation treatment [facility] Start: 09-05-2024 Cardiac monitoring [facility] Start: 09-05-2024 Care regimes management [facility] Start: 09-05-2024 Catheterization of vein [facility] Start: 09-05-2024 Consultation [facility] Start: 09-05-2024 Notification of physician [facility] Start: 09-05-2024 Vital signs measurements [facility] Start: 09-05-2024 End: 09-05-2024 [facility] Start: 09-05-2024 Following clinical pathway protocol [facility] Start: 09-05-2024 Admission procedure [facility] Start: 09-05-2024 Patient referral to dietitian [facility] Start: 09-02-2024 Patient discharge [facility] Start: 08-31-2024 Care planning and problem solving actions [facility] Start: 08-30-2024 [facility] Start: 08-29-2024 Following clinical pathway protocol [facility] Start: 08-29-2024 Assessment of risk of venous thromboembolism [facility] Start: 08-29-2024 Care regimes management [facility] Start: 08-29-2024 Fall prevention [facility] Start: 08-29-2024 Inhalation therapy procedure [facility] Start: 08-29-2024 Insertion of catheter into peripheral vein [facility] Start: 08-29-2024 Measuring intake and output [facility] Start: 08-29-2024 Notification of physician [facility] Start: 08-29-2024 Patient referral to dietitian [facility] Start: 08-29-2024 Providing care according to standard [facility] Start: 08-29-2024 Provision of activity privileges [facility] Start: 08-29-2024 Referral to gastroenterology service [facility] Start: 08-29-2024 Referral to car wiper [facility] Start: 08-29-2024 Referral to occupational therapist [facility] Start: 08-29-2024 Referral to service [facility] Start: 08-29-2024 Vital signs measurements [facility] Start: 08-29-2024 End: 08-29-2024 [facility] Start: 08-29-2024 Admission procedure [facility] Start: 08-21-2024 [facility] Start: 04-04-2024 COVID-19 Vaccine ( season) COVID-19 Vaccine ( season) [facility] Start: 04-04-2024 Influenza vaccination Influenza Vaccine (#1) [facility] Start: 2021 Prostate specific antigen measurement Prostate Cancer Screening Discussion [facility] Start: 2016 Zoster Vaccines (1 of 2) Zoster Vaccines (1 of 2) [facility] Start: 2011 Screening for malignant neoplasm of colon [facility] Start: 2001 Lipid panel Lipid Screening [facility] Start: 1988 DTaP/Tdap/Td Vaccines (1 - Tdap) DTaP/Tdap/Td Vaccines (1 - Tdap) [facility] Start: 1985 Hepatitis A Vaccine (1 of 2 - Risk 2-dose series) Hepatitis A Vaccine (1 of 2 - Risk 2-dose series) [facility] Start: 1985 Hepatitis A Vaccines (1 of 2 - Risk 2-dose series) Hepatitis A Vaccines (1 of 2 - Risk 2-dose series) [facility] Start: 1985 Hepatitis B Vaccine (1 of 3 - 19+ 3-dose series) Hepatitis B Vaccine (1 of 3 - 19+ 3-dose series) [facility] Start: 1985 Hepatitis B Vaccines (1 of 3 - 19+ 3-dose series) Hepatitis B Vaccines (1 of 3 - 19+ 3-dose series) [facility] Start: 1985 Pneumococcal vaccination Pneumococcal Vaccine (1 of 2 - PCV) [facility] Start: 1985 Pneumococcal Vaccine: 50+ (1 of 2 - PCV) Pneumococcal Vaccine: 50+ (1 of 2 - PCV) [facility] Start: 1985 Shingrix Vaccine (1 of 2) Shingrix Vaccine (1 of 2) [facility] Start: 1985 Urine microalbumin profile DTaP,Tdap,Td Vaccine (1 - Tdap) [facility] Start: 1984 Annual PCP Team Chronic Disease Visit Annual PCP Team Chronic Disease Visit [facility] Start: 1984 Anxiety Screening Anxiety Screening [facility] Start: 1984 Depression Screening Depression Screening [facility] Start: 1984 Hepatitis C screening Hepatitis C Screening [facility] Start: 1984 HIV screening HIV Screening [facility] Start: 1976 Glaucoma screening Diabetes: Retinopathy Screening [facility] Start: 1967 MMR Vaccines (1 of 1 - Standard series) MMR Vaccines (1 of 1 - Standard series) [facility] Start: 1966 Hemoglobin A1c measurement Diabetes: Hemoglobin A1C [facility] Start: 1966 HIV screening HIV Screening [facility] Start: 1966 Lipid panel Lipid Panel [facility] Start: 1966 Screening for malignant neoplasm of colon [facility] Start: 1966 Urine screening for protein Diabetes: Urine Protein Screening [facility] Start: 1966 Yearly Adult Physical Yearly Adult Physical [facility] Alanine aminotransfe rase [Enzymatic activity/volume] in Serum or Plasma [facility] End: 10-04-2024 Albumin [Mass/volume] in Body fluid [facility] Work Phone: Comment on above: Once (Lab) for 1 Occurrences starting until 10/04/2024 Once for 1 Occurrenc es starting 10/04/2024 until 10/04/2024 Albumin [Mass/volume ] in Serum or Plasma [facility] Alkaline phosphatase [Enzymatic activity/volume] in Serum or Plasma [facility] Anion gap in Serum o r Plasma [facility] End: 10-04-2024 Bacteria identified in Body fluid by Culture [facility] Work Phone: Comment on above: Once (Lab) for 1 Occurrences starting until 10/04/2024 Bilirubin, total measurement [facility] BUN/Creatinine ratio [facility] Calcium [Mass/volume ] in Serum or Plasma [facility] Carbon dioxide, tota l [Moles/volume] in Central venous blood [facility] CBC W Auto Different ial panel - Blood [facility] End: 10-04-2024 Clostridioides difficile toxin A+B tcdA+tcdB genes [Presence] in Stool by ANANTH with probe detection C. difficile, PCR Microbiology STAT STAT (Lab) for 1 Occurrences starting 10/04/2024 until 10/04/2024 [facility] Work Phone: Comment on above: STAT (Lab) for 1 Occurrences starting until 10/04/2024 Comprehensive metabo lic 2000 panel - Serum or Plasma [facility] Creatinine [Mass/vol ume] in Serum or Plasma [facility] Cytology report of B carmelina fluid Cyto stain [facility] Erythrocyte mean corpuscular volume determination [facility] End: 10-04-2024 Extra Urine Toney Tube Extra Urine Toney Tube Lab Timed Once for 1 Occurrences starting 10/04/2024 until 10/04/2024 [facility] Work Phone: Comment on above: Once for 1 Occurrences starting 10/05/19 25 until 10/04/2024 End: 10-04-2024 Glucose [Mass/volume] in Body fluid [facility] Work Phone: Comment on above: Once (Lab) for 1 Occurrences starting until 10/04/2024 Once for 1 Occurrenc es starting 10/04/2024 until 10/04/2024 Glucose [Mass/volume ] in Serum or Plasma [facility] Glucose [Mass/volume ] in Serum or Plasma [facility] Hematocrit [Volume Fraction] of Blood [facility] Hemoglobin [Mass/vol ume] in Blood [facility] End: 10-04-2024 Hemoglobin.gastrointestin al.lower [Presence] in Stool by Immunoassay Fecal Occult Blood Immunoassy Microbiology STAT Once (Lab) for 1 Occurrences starting 10/04/2024 until 10/04/2024 [facility] Work Phone: Comment on above: Once (Lab) for 1 Occurrences starting until 10/04/2024 Hepatitis A virus Ig M Ab [Presence] in Serum [facility] Hepatitis B core ant ibody measurement, IgM type [facility] Hepatitis B surface antigen measurement [facility] Hepatitis C antibody measurement [facility] INR in Blood by Coagulation assay [facility] End: 10-04-2024 Lactate dehydrogenase [Enzymatic activity/volume] in Body fluid by Lactate to pyruvate reaction [facility] Work Phone: Comment on above: Once (Lab) for 1 Occurrences starting until 10/04/2024 Once for 1 Occurrenc es starting 10/04/2024 until 10/04/2024 Lactate dehydrogenas e [Enzymatic activity/volume] in Body fluid by Pyruvate to lactate reaction [facility] Lactic acid measurement [facility] Lactic acid measurement [facility] Leukocytes [#/volume ] in Blood [facility] Magnesium measurement [facility] Mean corpuscular hemoglobin concentration determination [facility] Mean corpuscular hemoglobin determination [facility] Measurement of renal function [facility] Neutrophil count [facility] Neutrophil percent differential count [facility] End: 10-04-2024 Non-gynecological cytology method study Cytology (Non-Gynecologic) Pathology and Cytology Routine Once (Lab) for 1 Occurrences starting 10/04/2024 until 10/04/2024 [facility] Service Area Work Phone: Comment on above: Once (Lab) for 1 Occurrences starting until 10/04/2024 Ova OR parasites identification [facility] Patient Education [facility] Work Phone: Patient referral [facility] Work Phone: End: 10-04-2024 pH of Body fluid [facility] Work Phone: Comment on above: Once (Lab) for 1 Occurrences starting until 10/04/2024 Platelets [#/volume] in Blood [facility] Potassium measurement [facility] End: 10-04-2024 Protein [Mass/volume] in Body fluid [facility] Work Phone: Comment on above: Once (Lab) for 1 Occurrences starting until 10/04/2024 Once for 1 Occurrenc es starting 10/04/2024 until 10/04/2024 Protein [Mass/volume ] in Body fluid [facility] Prothrombin time [facility] Red blood cell count [facility] Red cell distributio n width determination [facility] Respiratory pathogen s DNA and RNA panel - Respiratory specimen by ANANTH with probe detection [facility] Serum chloride measurement [facility] Sodium measurement [facility] End: 10-04-2024 Stool Pathogen Panel, PCR Stool Pathogen Panel, PCR Microbiology STAT Once (Lab) for 1 Occurrences starting 10/04/2024 until 10/04/2024 [facility] Work Phone: Comment on above: Once (Lab) for 1 Occurrences starting until 10/04/2024 Total protein measurement [facility] UA DIP, URINE (POC) UA DIP, URIN E (POC) Lab Routine Screening for genitourinary condition 1 Occurrences starting 12/07/2024 [facility] Work Phone: Comment on above: 1 Occurrences starting 12/07/2024 Urea nitrogen [Mass/volume] in Serum or Plasma [facility] End: 10-04-2024 Urinalysis complete W Reflex Culture panel - Urine [facility] Service Area Work Phone: Comment on above: Once (Lab) for 1 Occurrences starting until 10/04/2024 Once for 1 Occurrenc es starting 10/04/2024 until 10/04/2024 Urine culture [facility] Urine culture [facility] Urine culture [facility] Urine culture [facility] Urine culture [facility] Urine culture [facility] Urine culture [facility] Urine culture [facility] Urine culture [facility] Immunizations Immunization Date Immunization Notes Care Provider Danny méndez 11-16-2024 COVID-19 vaccine, ag e 12+ yr (Proxly-BION[facility]afin [facility]) Jeremi Abreu RN Work Phone: [facility] 11-15-2024 pneumococcal conjuga te (PCV20) vaccine, 20 valent (PREVNAR 20) Marah Claroswellington FINGERPRINTER Work Phone: [facility] 11-14-2024 hepatitis A vaccine, adult dosage Marah Porteranitra FINGERPRINTER Work Phone: [facility] 11-14-2024 Hepatitis B vaccine (recombinant), CpG adjuvanted Marah Porteranitra FINGERPRINTER Work Phone: [facility] 11-14-2024 tetanus toxoid, redu danica diphtheria toxoid, and acellular pertussis vaccine, adsorbed Marah Arauz FINGERPRINTER Work Phone: [facility] 09-20-2024 influenza, seasonal, injectable Jeremi Abreu RN Work Phone: [facility] Work Phone: 09-15-2024 tuberculin skin test ; purified protein derivative solution, intradermal Jeremi Abreu RN Work Phone: [facility] Payers Date Payer Category Payer Self-pay 2024 Medicaid [id number] 2024 Medicaid [id number] 1965 Unknown [id number] 1965 Unknown [id number] Unknown [id number] Social History Date Type Detail Facility Start: 10-04-2024 End: 04-07-2025 Tobacco smoking status NHIS Ex-smoker [facility] Work Phone: History of tobacco use [facility] of tobacco use [facility] Start: 10-04-2024 End: 11-11-2024 Tobacco use and exposure Smokeless tobacco non-user [facility] Work Phone: Start: 10-04-2024 Alcoholic beverage intake [facility] Start: 10-04-2024 End: 11-15-2024 History of Social function [facility] Start: 10-04-2024 End: 11-15-2024 Tobacco use panel [facility] Start: 1965 Sex assigned at Not on file [facility] Work Phone: Start: 09-24-2024 End: 10-04-2024 Exposure to SARS-CoV-2 (event) Not sure [facility] Work Phone: Start: 10-11-2024 End: 11-21-2024 Sex Male (finding) [facility] Start: 1965 Sex Assigned At Male [facility] Start: 11-11-2024 End: 11-18-2024 Alcoholic beverage intake Lifetime non-drinker (finding) [facility] Has the [employer], or [employer] threatened to shut off services in your home in past 12Mo No [facility] (I/We) worried wheth er (my/our) food would run out before (I/we) got money to buy more. Sometimes true [facility] In the past 12 month s, has lack of transportation kept you from medical appointments or from getting medications? Yes [facility] Medical Equipment Procedure Code Equipment Code Equipment Origin al Text Equipment Identifier Dates Insertion, PleurX catheter system, pleural cavity FDA Start: 03-30-2025 Cystoscopic insertion of stent ([id number]) [id number] FDA Start: 09-05-2024 Goals Date Patient Goal Desired Activity /State Functional Status Date Assessment Result Facility 02-27-2025 Functional status Ambulates [facility] Work Phone: 02-17-2025 Functional status Bathroom Privi lege;Back to bed [facility] Work Phone: 01-31-2025 Functional status Ambulates [facility] Work Phone: 01-21-2025 Functional status Ambulates [facility] Work Phone: 01-05-2025 Functional status With Assist of 1 [facility] Work Phone: 01-05-2025 Functional status Ambulates;Bath room Privilege [facility] Work Phone: 12-02-2024 Functional status Ambulates [facility] Work Phone: 11-25-2024 Functional status Bedrest [facility] Work Phone: 11-18-2024 Are you deaf, or do you have serious difficulty hearing Yes 11/18/2024 10:13 AM Anika Andino RN Yes [facility] 11-18-2024 Are you blind, or do you have serious difficulty seeing, even when wearing glasses No 11/18/2024 10:13 AM Anika Andino RN No [facility] 11-18-2024 Do you have serious difficulty walking or climbing stairs Yes 11/18/2024 10:13 AM Anika Andino RN Yes [facility] 11-18-2024 Do you have difficul ty dressing or bathing Yes 11/18/2024 10:13 AM Anika Andino RN Yes [facility] 11-18-2024 Because of a physica l, mental, or emotional condition, do you have difficulty doing errands alone such as visiting a physician's office or shopping Yes 11/18/2024 10:13 AM Anika Andino RN Yes [facility] 11-11-2024 Functional status Bedpan [facility] Work Phone: 09-15-2024 Functional status Ambulates [facility] Work Phone: 09-02-2024 Functional status Bathroom Privilege [facility] Work Phone: Mental Status Date Assessment Result Facility 04-07-2025 Cognitive function Awake;Drowsy [facility] Work Phone: 03-30-2025 Cognitive function Voice/Name [facility] Work Phone: 03-11-2025 Cognitive function Appropriate;F ollows Commands;Drowsy [facility] Work Phone: 03-04-2025 Cognitive function Awake;Alert;Appropriat e [facility] Work Phone: 02-27-2025 Cognitive function Voice/Name [facility] Work Phone: 02-17-2025 Cognitive function Voice/Name [facility] Work Phone: 02-16-2025 Cognitive function Alert;Appropr iate;Follow s Commands;Drowsy [facility] Work Phone: 02-11-2025 Cognitive function Awake;Alert;Appropriat e [facility] Work Phone: 01-31-2025 Cognitive function Cooperative;A nxious;Talk ative [facility] Work Phone: 01-30-2025 Cognitive function Voice/Name [facility] Work Phone: 01-28-2025 Cognitive function Awake;Alert;A ppropriate; Follows Commands [facility] Work Phone: 01-21-2025 Cognitive function Voice/Name [facility] Work Phone: 01-05-2025 Cognitive function Voice/Name [facility] Work Phone: 01-02-2025 Cognitive function Awake;Alert;Appropriat e [facility] Work Phone: 12-30-2024 Cognitive function Awake;Alert;A ppropriate; Follows Commands [facility] Work Phone: 12-02-2024 Cognitive function Voice/Name [facility] Work Phone: 11-25-2024 Cognitive function Voice/Name [facility] Work Phone: 11-18-2024 Because of a physica l, mental, or emotional condition, do you have serious difficulty concentrating, remembering, or making decisions Yes 11/18/2024 10:13 AM EDT Anika Carolina RN Yes [facility] 11-10-2024 Cognitive function Voice/Name [facility] Work Phone: 09-29-2024 Cognitive function Awake;Alert;A ppropriate; Follows Commands [facility] Work Phone: 09-14-2024 Cognitive function Appropriate;Cooperativ e [facility] Work Phone: 09-14-2024 Cognitive function Voice/Name [facility] Work Phone: 09-02-2024 Cognitive function Voice/Name [facility] Work Phone: Clinical Notes 08-30-2024 to 04-07-2025 Note Date & Type Note Facility 04-07-2025 History and physical note Note Date/Time April 07, 2025 9:47pm [facility] Medical Records Department [address] [place] [address] H&P Exam - Hospitalist 04/07/252119 MR#: [id number] Acct: [id number] Name: FRANKLIN WIGGINS Rep #:[id number] : 1965 59 From: Maria Guadalupe Shore MD PCP: YG Pena Status:REG E R Location: ED HPI - General General Date of Admission: 04/07/25 Date of Service: 04/07/25 Chief Complaint: Confusion, weakness. HPI Narrative The patient is a 59 y/o M w/ PMHx: CKD stage II per GFR trending, Chronic anemia/iron deficiency anemia, ABBY, HTN, HLD, Diabetes mellitus type II, Nonalcoholic cirrhotic liver disease, Former tobacco use, Persistent left-sided staghorn calculi with stents in place following with Dr. Rascon who presents to [facility] ED on 04/28 with increased fatigue, malaise and reported URI type symptoms as well with increasing confusion with blood sugar noted to be 80 prior to ED arrival with episode of nausea and emesis with no fevers or chills prompting patient healthcare power of deputy prosecuting attorney his ex- and a friend to care for him topresent him to the ED for further evaluation. Of note patient with recent 03/30/2025 ultrasound-guided placement of tunneled Pleur-X catheter for persistent cirrhotic ascites per Dr. Balderas with unfortunately then follow-up ED visit noted 04/03/2025 with paracentesis tubing unfortunately falling out with decision at that time her healthcare power of deputy prosecuting attorney to return the patient to home since that time there is no interventional radiologist availablefor placement. Ex- states that he has not been taking his lactulose. Workup in the ED included T98.3, heart rate 88, BP 112/63, respiratory 20, 99% on room air with most recent repeat vitals heart rate 73, BP 122/71, respiratory rate 15, 100% room air, CBC with WC 7.9, hemoglobin 9.1, MCV 90.5, platelet 164 without marked shift, CMP with chloride 110, carbon oxide 16.9, BUN/creatinine 11/1.04, GFR 83, glucose 106, T. bili 1.76, D bili 1.11, AST/ALT 48/23, alk [id number], lipase 47, ammonia level 143, urinalysis pending upon requested evaluation of patient. Discussed with ED physician and patient will be administered rectal lactulose. [facility] Medical History Diffuse abdominal pain Acute hepatic encephalopathy Hyperammonemia Elevated liver enzymes Cirrhosis of liver with ascites Decompensated cirrhosis History of diabetes mellitus Chronic anemia VRE (vancomycin resistant enterococcus) culture positive Spinal stenosis, lumbar region with neurogenic claudication Umbilical hernia Chronic hyponatremia Weakness Diarrhea Sepsis [...] fever o r pain 10/28/24 Unknown History cyclobenzaprine 10 mg tablet 10 mg [...] PO BID 1 month #60 tabs 02/17/25 03/30/25 Rx furosemide 40 mg tablet 40 mg [...] Unknown Rx solution insulin glargine-yfgn 100 unit/mL 30 unit subcut QHS 0 03/10/25 Unknown History (3 mL) subcutaneous pen Allergy/AdvReac Type Severity Reaction Status Date / Time No Known Allergies Allergy Verified 04/07/25 18:06 Family History Mother Heart disease Hypertension CAD (coronary artery disease) Myocardial infarction Father Hypertension Heart disease Heart failure Surgical History History of tonsillectomy and adenoidectomy Social History household members: other details: Lives with his ex /her . Smoking Status: Former smoker how long ago did patient quit smoking: Quit Fall 2023, smoked 1.5 ppd since teen until quit. alcohol intake: never substance use type: does not use additional social history: EX and a friend help with his care. ROS Review of Systems ROS Unobtainable: due to encephalopathy Vital Signs Vital Signs Vital Signs: 04/07/25 18:05 04/07/25 19:00 04/07/25 19:15 Temperature 98.3 F Temperature Source Oral Pulse Rate 88 74 Respiratory Rate 20 H 15 Respiratory Effort Normal Respiratory Pattern Normal Blood Pressure 112/63 Blood Pressure Mean 79 Pulse Ox 99 100 Oxygen Delivery Method Room Air 04/07/25 19:20 04/07/25 19:30 04/07/25 19:45 Temperature Temperature Source Pulse Rate 73 74 78 Respiratory Rate 15 14 14 Respiratory Effort Respiratory Pattern Blood Pressure 115/69 Blood Pressure Mean 82 Pulse Ox 100 100 100 Oxygen Delivery Method 04/07/25 20:00 04/07/25 20:15 Temperature Temperature Source Pulse Rate 74 73 Respiratory Rate 16 15 Respiratory Effort Respiratory Pattern Blood Pressure 122/71 H Blood Pressure Mean 87 Pulse Ox 100 100 Oxygen Delivery Method Physical Exam Narrative Physical Examination: General: Awakens to stimuli, intermittently alert but is lethargic, can answer some questions, laying in the ED bed, NAD. Skin: Compared to prior not markedly jaundiced, normal turgor, no cyanosis, notably reduced scleral icterus compared to prior, occasional abrasion noted. HEENT: AT/NC, EOMI, PERRLA, dry MM, no carotid bruits or JVD noted, see skin. Lungs: Diminished, greater bases, no evidence of any distress, no rales, ronchi or wheezing. Heart: Regular rate and rhythm; no gallop, rub audible. Abdomen: Soft, obese, global mild TTP, no severe distention or marked fluid wave, mild tympany, hyperactive BS, + HM, small umbilical hernia present. Extremities: No cyanosis, no clubbing, no marked peripheral edema noted. Neurological: Awakens to stimuli, intermittently alert but is lethargic, not oriented, cognitive function decreased from baseline intact; pupils equally reactive to light and accommodation, cranial nerves grossly normal, moving all 4extremities, strength severely globally decreased secondary to acute presentation. Psychiatric: Affect appears flat, lethargic, no acute evidence of depressive or anxiety feelings. Results Lab / Micro Data 04/07/25 18:32 04/07/25 18:32 Labs: Laboratory Results - last 24 hr 04/07/25 18:19: POC Glucose 81 04/07/25 18:32: WBC 7.9, RBC 3.06 L, Hgb 9.1 L, Hct 27.7 L, MCV 90.5, MCH 29.7, MCHC 32.9, RDW Std Deviation 50.8 H, RDW Coeff of Francis 15.5 H, Plt Count 164, MPV10.8, Immature Gran % (Auto) 0.500, Neut % (Auto) 67.0, Lymph % (Auto) 16.8 L, Chester % (Auto) 9.9, Eos % (Auto) 5.2 H, Baso % (Auto) 0.6, Absolute Neuts (auto) 5.3, Absolute Lymphs (auto) 1.32, Nucleated RBC % 0, Sodium 136, Potassium 4.0, Chloride 110 H, Carbon Dioxide 16.9 L, Anion Gap 9, BUN 11, Creatinine 1.04, EstGFR (MDRD) Non-Af 83, BUN/Creatinine Ratio 10.5, Glucose 106 H, Calcium 8.6, Total Bilirubin 1.76 H, Direct Bilirubin 1.11 H, AST 48 H, ALT 23, Alkaline Phosphatase 176 H, Total Protein 6.1, Albumin 2.4 L, Globulin 3.8, Lipase 47 04/07/25 20:26: Ammonia 143.0 H Assessment & Plan Assessment/Plan (1) Hepatic encephalopathy: PLAN: Plan The patient is a 59 y/o M w/ PMHx: CKD stage II per GFR trending, Chronic anemia/iron deficiency anemia, ABBY, HTN, HLD, Diabetes mellitus type II, Nonalcoholic cirrhotic liver disease, Former tobacco use, Persistent left-sided staghorn calculi with stents in place following with Dr. Rascon who presents to [facility] ED on 04/28 with increased fatigue, malaise and reported URI type symptoms as well with increasing confusion with blood sugar noted to be 80 prior to ED arrival with episode of nausea and emesis with no fevers or chills prompting patient healthcare power of deputy prosecuting attorney his ex- and a friend to care for him topresent him to the ED for further evaluation. #1. Acute hepatic encephalopathy with significant hyperammonemia with chronic nonalcoholic cirrhotic liver disease: Will admit to [facility], once oral intake safe with plan for allowance of Na/DM diet, continue home rifaximin, spironolactone, Lasix, Coreg regimen, initiate and continue on aggressive lactulose regimen withoral if able to tolerate otherwise transition to rectal administration. Patient did have previous PleurX catheter in place and unfortunately this came out, willneed referral for follow-up with Dr. Balderas for replacement. PT/OT/case management consult for discharge planning. #2. Significant debility, adult failure to thrive, multifactorial, secondary to#1 and questionable recent acute viral syndrome: Will obtain full respiratory viral panel and COVID assessment as well, notable case load in the community of rhinovirus this certainly could be multifactorial, procalcitonin requested, PT/OT/case management consulted for discharge planning as noted. #3. Chronic normocytic anemia/iron deficiency anemia: Admission hemoglobin 9.1,MCV 90.5, baseline hemoglobin primarily 8-9, vacillates, continue to trend, continue iron supplementation once oral intake appropriate. #4. Chronic Kidney Disease Stage II per GFR trending: Admission BUN/Cr /1.04,GFR 83, baseline renal function primarily 0.8-1.1 but does vacillate, most recently 03/11/2025 creatinine 1.30 at that time, repeat CMP in AM. #5. Diabetes mellitus type II: Hold oral home regimen, continue home insulin regimen, once clinically appropriate allow ADA diet, accu checks w/ ISS. #6. Hypertension: Continue home regimen including spironolactone, Lasix, Coreg once clinically appropriate for oral intake, PRN hydralazine. #7. Hyperlipidemia: Will continue patient on statin therapy once oral intake appropriate. #8. Former tobacco use: Encourage continued tobacco cessation. #9. ABBY: CPAP nightly but with history of recent N/V, will hold and use supplemental oxygen until assure improved. #10. DVT prophylaxis: Lovenox. #11. CODE status: Patient MARE is his ex-. Discussed CODE status at lengthincluding difference between FULL code, DNR-CCA and DNR-CC status. Following discussions about the differences in these status, requested Full Code status. She noted that Hospice had made him a DNR-CCA but she wants him upon admission to be a Full Code. Frankly did discuss the likelihood of a good outcome/prognosis should he have a cardiopulmonary event and patient ex- would still like to keep him a full code. Advanced Care Planning Face to Face Time: 16 minutes. Charges/Coding Visit Charges Inpatient E&M: 12347 Init Hosp L3 Procedures Hospitalists Procedures: 92351 Advncd Care Plan 30 Min 04/07/252146 <Electronically signed by Maria Guadalupe Shore MD> Cosigner Signature (if applicable): CC: RBITTANYC Josy Elias; Dr. Maria Guadalupe Shore MD~ Signed [facility] Work Phone: 1(104) 333-419708-27-2025 [facility]08-08-2025 Discharge summary Author Alber Dunn [facility] Note Date/Time March 11, 2025 10: 05pm [facility] Medical Records Department [address] [place] [address] Emergency Department Summary 03/11/25 MR#: [id number] Acct: [id number] Name: FRANKLIN WIGGINS Rep #:[id number] : 1965 59 From: Alber Dunn MD PCP: YG Pena Status:REG E R Location: ED HPI <PAULETTE [...] <PAULETTE Roberts - Last Filed: 03/11/25 22:00> [facility] Medical History Diffuse abdominal pain Acute [...] <PAULETTE Roberts - Last Filed: 03/11/25 22:00> [facility] Narrative Medical decision making narrative: Differential: Diabetic [...] 70.2 H Lymph % (Auto) 12.6 L Chester % (Auto) 10.9 H Eos % (Auto) [...] Dunn MD - Last Filed: 03/11/25 20:03> [facility] MDM Narrative Medical decision making narrative: I [...] 70.2 H Lymph % (Auto) 12.6 L Chester % (Auto) 10.9 H Eos % (Auto) [...] run high. Contact [facility]. Print Language: [place] Disposition Disposition: Home, Self Care What to do if you have Problems For any increased pain, shortness of breath, bleeding, nausea or vomiting, chestpain, or any unexpected problems, contact your Primary Care Provider. Call [facility] ([phone]) or report to the closest Emergency Room. Call 911 if necessary. 03/11/252204 <Electronically signed by Alber Dunn MD> Cosigner Signature (if applicable): 03/11/252199 <Electronically signed by Day CALDWELL> CC: YG Elias ~ Signed [facility] Work Phone: 1(245) 604-723807-27-2025 [facility]07-17-2025 [facility]07-16-2025 Discharge summary Author Alber Dunn [facility] Note Date/Time February 16, 2025 6:39 pm [facility] Medical Records Department [address] [place] [address] Emergency Department Summary 02/16/25 MR#: [id number] Acct: [id number] Name: FRANKLIN WIGGINS Rep #:[id number] : [...] similar symptoms: Yes Recent Illness/Hospitalization: No PFSH [facility] Medical History VRE (vancomycin resistant enterococcus) [...] liver enzymes. Patient will be admitted to [facility]. History & Record Review Discussion w/independent [...] diabetes mellitus Disposition Disposition: Acute Care Hospital [facility] What to do if you have Problems For any increased pain, shortness of breath, bleeding, nausea or vomiting, chestpain, or any unexpected problems, contact your Primary Care Provider. Call [facility] ([phone]) or report to the closest Emergency Room. Call 911 if necessary. 02/16/25 1839 <Electronically signed by Alber Dunn MD> Cosigner Signature (if applicable): CC: Dr. Jerald Sherwood MD ~ Signed [facility] Work Phone: 1(233) 794-580107-16-2025 Procedure [facility] 02-13-2025 Radiology Diagnostic study [facility]07-11-2025 Radiology Diagnostic study [facility]07-08-2025 Radiology Diagnostic study [facility]06-30-2025 Discharge summary Author Yaritza Leo [facility] Note Date/Time January 31, 2025 2:41 pm [facility] Medical Records Department [address] [place] [address] Discharge Summary 01/31/25 1217 MR#: [id number] Acct: [id number] Name: FRANKLIN WIGGINS Rep #:[id number] : 1965 59 From: Yaritza Leo DO PCP: Dr. Jerald Sherwood MD Status:ADM I N Location: [place] [address] Providers Date of Admission: 01/28/25 Date of Discharge: 01/31/25 Primary Care Physician: Dr. Jerlad Sherwood MD Reason For Visit: HEPATIC ENCEPHALOPATHY [...] Final Vancomycin Resist. E. faecalis GNR lactose obgyn specialist 01/28/25 06:15 Blood Culture (Wb) - Anticubital [...] Self Care Charges/Coding Visit Charges Inpatient E&M: 65528 Disch Hosp >30min 01/31/25 1441 <Electronically signed by Yaritza Leo DO> Cosigner Signature (if applicable): CC: Dr. Yaritza Leo DO; Dr. Jerald Sherwood MD~ Signed [facility] Work Phone: 1(585) 283-402606-30-2025 [facility]06-30-2025 Hospital Discharge instructionsAdditional Instructions 1. Goal bowel movements with lactulose is 2-3 bowel movements daily. If you are having more than 3 bowel movements daily please decrease your lactulose from 3 times daily to 2 times daily 2. It is very important that you are compliant with your medications and utilize them as directed Date of Discharge: 01/31/25[facility] Work Phone: 1(117) 521-932006-29-2025 Progress note Author Yaritza Leo [facility] Note Date/Time January 30, 2025 1:37 pm [facility] Medical Records Department [address] [place] [address] Progress Note - Hospitalist 01/30/25 0728 MR#: [id number] Acct: [id number] Name: FRANKLIN WIGGINS Rep #:[id number] : 1965 59 From: Yaritza Leo DO PCP: Dr. Jerald Sherwood MD Status:ADM I N Location: [place] [address] Reason for Visit Reason for Visit: Fever [...] Neut % (Auto) 53.2, Lymph % (Auto) 20.0,Chester % (Auto) 18.5 H, Eos % (Auto) [...] Preliminary GPC Poss Enterococcus sp GNR lactose obgyn specialist 01/28/25 03:10 Mucosa - Nose SARS-CoV-2, Influenza [...] 11-25,000 CFU's per mL and a gram-negative mcihael at the thousand to 10,000 CFU's per [...] Full code Charges/Coding Visit Charges Inpatient E&M: 89752 Subs Hosp L2 01/30/25 4584 <Electronically signed by Yaritza Leo DO> Cosigner Signature (if applicable): CC: ~ Signed [facility] Work Phone: 1(959) 603-369706-28-2025 Progress note Author Yaritza Leo [facility] Note Date/Time January 29, 2025 5:59 pm [facility] Medical Records Department [address] [place] [address] Progress Note - Hospitalist 01/29/25 0754 MR#: [id number] Acct: [id number] Name: FRANKLIN WIGGINS Rep #:[id number] : 1965 59 From: Yaritza Leo DO PCP: Dr. Jerald Sherwood MD Status:ADM I N Location: [place] [address] Reason for Visit Reason for Visit: Fever [...] (Auto) 60.8, Lymph % (Auto) 17.1 L, Chester % (Auto) 15.2 H, Eos % (Auto) [...] Full code Charges/Coding Visit Charges Inpatient E&M: 72751 Subs Hosp L2 01/29/25 5225 <Electronically signed by Yaritza Leo DO> Cosigner Signature (if applicable): CC: ~ Signed [facility] Work Phone: 1(882) 780-131906-27-2025 History and physical note Author Boone Izquierdo [facility] Note Date/Time January 28, 2025 7:26 am [facility] Medical Records Department [address] [place] [address] H&P Exam - Hospitalist 01/28/25 0710 MR#: [id number] Acct: [id number] Name: FRANKLIN WIGGINS Rep #:[id number] : [...] stable in the emergencyroom without fluid resuscitation. [facility] Medical History (Updated 01/28/25 @ 07:[address] Boone Izquierdo, ) Hepatic encephalopathy Umbilical hernia Chronic hyponatremia Weakness [...] (Auto) 57.8, Lymph % (Auto) 18.8 L, Chester % (Auto) 16.7 H, Eos % (Auto) [...] Clarity Cloudy, Urine pH 8.0, Ur Specific [place] 1.015, Urine Protein 100 H, Urine Glucose [...] correlate for possible hepatic colopathy. Reading Location: [place] [address] Assessment & Plan Assessment/Plan (1) Hepatic encephalopathy: [...] be continued. Charges/Coding Visit Charges Inpatient E&M: 02977 Init Hosp L3 01/28/25 0726 <Electronically signed by Boone Izquierdo DO> Cosigner Signature (if applicable): CC: Dr. Boone Izquierdo DO; Dr. Jerald Sherwood MD~ Signed [facility] Work Phone: 1(556) 139-817906-27-2025 History and physical note Author Boone Izquierdo [facility] Note Date/Time January 28, 2025 7:26 am [facility] Medical Records Department [address] [place] [address] H&P Exam - Hospitalist 01/28/25 0710 MR#: [id number] Acct: [id number] Name: FRANKLIN WIGGINS Rep #:[id number] : [...] stable in the emergencyroom without fluid resuscitation. [facility] Medical History (Updated 01/28/25 @ [...] (Auto) 57.8, Lymph % (Auto) 18.8 L, Chester % (Auto) 16.7 H, Eos % (Auto) [...] Clarity Cloudy, Urine pH 8.0, Ur Specific [place] 1.015, Urine Protein 100 H, Urine Glucose [...] bilateral basilar atelectatic pulmonary changes. Reading Location: [facility] Abdomen/Pelvis CT 01/28/25 05:12 IMPRESSION: Cirrhosis, collateral [...] possible hepatic colopathy. Reading [facility] Assessment & Plan Assessment/Plan (1) Hepatic encephalopathy: [...] be continued. Charges/Coding Visit Charges Inpatient E&M: 79799 Init Hosp L3 01/28/25 0726 <Electronically signed by Boone Izquierdo DO> Cosigner Signature (if applicable): CC: Dr. Boone Izquierdo DO; Dr. Jerald Sherwood MD~ Signed [facility] Work Phone: 1(507) 609-628606-27-2025 Discharge summary Author Danny Hutton [facility] Note Date/Time January 28, 2025 6:59 am [facility] Medical Records Department [address] [place] [address] Emergency Department Summary 01/28/25 MR#: [id number] Acct: [id number] Name: FRANKLIN WIGGINS Rep #:[id number] : 1965 59 From: Danny christy DO PCP: Dr. Jerald Sherwood MD Status:REG E R Location: ED HPI History of Present Illness Chief Complaint: Confusion Narrative Narrative: Chief complaint and HPI: Fever and confusion. 59-year-old male with past medical history DM2, ABBY, HTN, HLD, liver 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 presents from [place] for fever and confusion. History taken by [...] diarrhea, constipation, dysuria. I personally spoke with [facility] staff. The nurse is new to taking [...] Alert, grossly intact, sensation intact Psych: Cooperative [facility] Medical History Umbilical hernia Chronic hyponatremia [...] liver 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 presents from [place] for fever and confusion. Patient is a poor historian therefore history taken by EMS as well as [facility] nurse. Reported patient developed a fever of 101 ?F this evening prior to arrival. No meds were given. Nurse as well as myself does not know the patient's baseline mental status although nursing staff here that note is the patient states that wax and wanes. Nurse there states that multiple techs felt that the patient wasconfused at [facility] and that he was asking about people [...] (Auto) 57.8 Lymph % (Auto) 18.8 L Chester % (Auto) 16.7 H Eos % (Auto) [...] Color Urine Clarity Urine pH Ur Specific [place] Urine Protein Urine Glucose (UA) Urine Ketones Urine Occult Blood Urine Nitrite Urine Bilirubin Urine Urobilinogen Ur Leukocyte Esterase Urine RBC Urine WBC Ur Squamous Epith Cells Urine Bacteria Urine Mucus 01/28/25 01/28/25 04:33 04:58 WBC RBC Hgb Hct MCV MCH MCHC RDW Std Deviation RDW Coeff of Francis Plt Count MPV Immature Gran % (Auto) Neut % (Auto) Lymph % (Auto) Chester % (Auto) Eos % (Auto) Baso % [...] Clarity Cloudy Urine pH 8.0 Ur Specific [place] 1.015 Urine Protein 100 H Urine Glucose [...] bilateral basilar atelectatic pulmonary changes. Reading Location: [facility] Abdomen/Pelvis CT 01/28/25 05:12 IMPRESSION: Cirrhosis, collateral [...] correlate for possible hepatic colopathy. Reading Location: [place] [address] Discharge Plan Triage Chief Complaint: Confusion ED [...] MD [Primary Care Provider] - Print Language: [place] What to do if you have Problems For any increased pain, shortness of breath, bleeding, nausea or vomiting, chestpain, or any unexpected problems, contact your Primary Care Provider. Call [facility] ([phone]) or report to the closest Emergency Room. Call 911 if necessary. 01/28/25 0659 <Electronically signed by Danny Hutton DO> Cosigner Signature (if applicable): CC: Dr. Jerald Sherwood MD ~ Signed [facility] Work Phone: 1(988) 452-816506-27-2025 Radiology Diagnostic study [facility]06-27-2025 Radiology Diagnostic study [facility]06-20-2025 Discharge summary Author Anurag Irene [facility] Note Date/Time January 21, 2025 11:1 2am [facility] Medical Records Department [address] [place] [address] Transfer to [facility] MR#: [id number] Acct: [id number] Name: ROSALIEFRANKLINKarma CASEY Rep #:[id number] : 1965 59 From: Anurag Mcnally PCP: YG Pena Status:ADM I N Certification of patient admission REQUIRED AT TIME OF ADMISSION. I CERTIFY THAT POST-HOSPITAL ECF SERVICES ARE REQUIRED TO BE GIVEN ON AN IN-PATIENT BASIS BECAUSE OF THE ABOVE NAMED PATIENT'S NEED FOR DETENTION CARE ON A CONTINUING BASIS FOR THE [...] (Auto) 63.5, Lymph % (Auto) 16.3 L, [place] % (Auto) 11.9 H, Eos % (Auto) [...] Instructions Additional Instructions / Restrictions: Follow-up in [facility] hepatology/GI. Discharge Orders/Prescriptions Prescriptions: New [...] in before D/C Order can be placed): [facility] Facility 01/21/25 1112 <Electronically signed by Anurag Irene MD> Cosigner Signature (if applicable): CC: YG Elias; Dr. Aleyda Bautista MD; Dr. Yaritza Leo DO; Dr. Cielo Tovar MD; Dr. Jefferson Malave MD ~ [facility] Work Phone: 1(767) 761-244806-20-2025 Discharge summary Author Anurag [facility] Note Date/Time January 21, 2025 1:29 pm [facility] Medical Records Department [address] [place] [address] Discharge Summary 01/21/25 1112 MR#: [id number] Acct: [id number] Name: FRANKLIN WIGGINS Rep #:[id number] : 1965 59 From: Anurag Mcnally PCP: YG Pena Status:ADM I N Location: [place] [address] Providers Date of Admission: 01/09/25 Date of Discharge: 01/21/25 Primary Care Physician: YG Pena Consultations 01/09/25 15:46 Consult: Administrative Liaison / Pulmonary Medicine Routine Consulting Provider: Intensivists/Pulmonary [...] (Auto) 63.5, Lymph % (Auto) 16.3 L, Chester % (Auto) 11.9 H, Eos % (Auto) [...] solution (Constulose) 15 ml PO TID PRN ktilpoabfjmj26/27/25 L.acidophil,salivari-Bifido bifidum-Strep thermoph 175 mg capsule 1 [...] Instructions Additional Instructions / Restrictions: Follow-up in [facility] hepatology/GI. Discharge Orders/Prescriptions Prescriptions: New [...] in before D/C Order can be placed): Group Home Facility Charges/Coding Visit Charges Inpatient E&M: 25219 Disch Hosp >30min 01/21/25 1117 <Electronically signed [...] Elias; Dr. Anurag Irene MD ~* Signed [facility] Work Phone: 1(686) 968-737406-20-2025 [facility]06-19-2025 Progress note Author Anurag Irene [facility] Note Date/Time January 20, 2025 2:40 pm [facility] Medical Records Department [facility] [place] [address] Progress Note - Hospitalist 01/20/25 1436 MR#: [id number] Acct: [id number] Name: FRANKLIN WIGGINS Rep #:[id number] : 1965 59 From: Anurag Mcnally PCP: YG Pena Status:ADM I N Location: [place] [address] Reason for Visit Reason for Visit: Diagnoses [...] (Auto) 63.5, Lymph % (Auto) 16.3 L, Chester % (Auto) 11.9 H, Eos % (Auto) [...] (Auto) 63.5, Lymph % (Auto) 16.3 L, Chester % (Auto) 11.9 H, Eos % (Auto) [...] 167 H Charges/Coding Visit Charges Inpatient E&M: 11591 Subs Hosp L2 01/20/25 1440 <Electronically signed by Anurag Irene MD> Cosigner Signature (if applicable): CC: ~ Signed [facility] Work Phone: 1(204) 337-790206-18-2025 Progress note Author Anurag Irene [facility] Note Date/Time January 19, 2025 4:46 pm [facility] Medical Records Department [address] [place] [address] Progress Note - Hospitalist 01/19/25 0919 MR#: [id number] Acct: [id number] Name: FRANKLIN WIGGINS Rep #:[id number] : 1965 59 From: Anurag Mcnally PCP: GY Pena Status:ADM I N Location: [place] [address] Reason for Visit Reason for Visit: Diagnoses [...] WBCs % 75.6, Fluid Neutrophils 20, Fluid Dywnjjmhkzg50, Fluid Monocytes 3, Fluid Macrophages 46, Fluid [...] (Auto) 67.7, Lymph % (Auto) 13.6 L, Chester % (Auto) 11.0 H, Eos % (Auto) [...] Microbiology 01/18/25 19:00 Stool Stool Occult Blood (AUDEI) - Final 01/09/25 13:35 Blood Culture (Wb) [...] gas. Correlate with surgical history. Reading Location: [id number] Paracentesis Ultrasound 01/18/25 13:08 IMPRESSION: Right lower quadrant marker was applied for paracentesis with drain the fluid volume of 2650 cc. Reading Location: [place] [address] Physical Exam Narrative Seen and examined Discussed [...] WBCs % 75.6, Fluid Neutrophils 20, Fluid Yawmcdlsdpy37, Fluid Monocytes 3, Fluid Macrophages 46, Fluid [...] (Auto) 67.7, Lymph % (Auto) 13.6 L, Chester % (Auto) 11.0 H, Eos % (Auto) [...] 198 H Charges/Coding Visit Charges Inpatient E&M: 06568 Subs Hosp L2 01/19/25 1646 <Electronically signed by Anurag Irene MD> Cosigner Signature (if applicable): CC: ~ Signed [facility] Work Phone: 1(866) 268-431706-18-2025 Radiology Diagnostic study [facility]06-17-2025 Radiology Diagnostic study [facility]06-17-2025 Progress note Author Anurag Irene [facility] Note Date/Time January 18, 2025 1:14 pm [facility] Medical Records Department [address] [place] [address] Progress Note - Hospitalist 01/18/25 1302 MR#: [id number] Acct: [id number] Name: FRANKLIN WIGGINS Rep #:[id number] : 1965 59 From: Anurag Mcnally PCP: YG Pena Status:ADM I N Location: [place] [address] Reason for Visit Reason for Visit: Diagnoses [...] (Auto) 68.1, Lymph % (Auto) 14.0 L, Chester % (Auto) 10.0, Eos % (Auto) 6.1 [...] prophylaxis: SCDs Charges/Coding Visit Charges Inpatient E&M: 80587 Subs Hosp L2 01/18/25 1314 <Electronically signed by Anurag Irene MD> Cosigner Signature (if applicable): CC: ~ Signed [facility] Work Phone: 1(775) 244-472906-17-2025 Consult note Author Mohit Santos [facility] Note Date/Time January 18, 2025 12:4 9pm [facility] Medical Records Department [address] [facility] [place] [address] Pre-Anesthesia Evaluation 01/18/25 1246 MR#: [id number] Acct: [id number] Name: FRANKLIN WIGGINS Rep #:[id number] : 1965 59 From: Mohit Santos MD PCP: YG Pena Status:ADM I N Y Race: C Location: [place] [address] 2-1 ASA Classification* ASA Classification ASA Classification: [...] injection L1/L2 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 - co pilot: 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 - co pilot Hx Hospitalization Any Problems With Anesthesia No [...] am of surgery tylenol PONV PONV - co pilot: PONV - co pilot Female HX of Motion Sickness HX of N/V After Surgery Non-Smoker Duration of Surgery greater than 60 minutes Number of Risk Factors PONV Score Height & Weight Height & Weight: Anesthesia: Height & Weight Height 5 ft 9 in 01/17/25 14:51 Weight: 111.3 kg 01/18/25 08:57 Body Mass Index (BMI) 36.2 01/18/25 03:51 Respiratory Assessment Respiratory Assessment - co pilot: Respiratory Tract Infection Hx - co pilot Hx Respiratory Tract Infection No 01/18/25 09:01 STOP Sleep Apnea STOP Sleep Apnea - co pilot: STOP Sleep Apnea - co pilot Hx Hypertension No 01/10/25 10:46 Hx Sleep [...] Tobacco Use History Tobacco Use History - co pilot: Tobacco Use History - co pilot Tobacco Use Smoking Status Former smoker 01/10/25 09:20 Hx Tobacco Use Yes 01/09/25 15:31 Years Smoking Packs Smoked per Day Smoking Cessation Date was Yes - quit smoking within 15 01/09/25 15:31 within the last 15 years years Hx Smoking Cessation Date 05/04/24 01/09/25 15:31 Hx Smoking Cessation Counseling Hematologic Medial History Hematologic Hx - co pilot: 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 Hx of Blood Transfusion No 01/09/25 15:31 [...] confused, unrespo /Reproduction History /Reproductive History - co pilot: /Reproductive Hx- co pilot Hx Now No 01/18/25 09:01 Gestational Age [...] mls @ 15 mls/hr 01/09/25 15:34 IV .[id number] PRN Saline Flush Sodium Chloride 250 mls @ 15 mls/hr 01/09/25 15:34 IV .[id number] PRN Additional IVPB Infusion Sodium Chloride 1,000 mls @ 15 mls/hr 01/18/25 12:45 IV .Q48H [facility] Insulin Glargine 20 unit 01/09/25 22:00 01/17/25 21:05 Insulin Glargine-Yfgn 100 Unit/Ml Pen SC 20 unit QHS [facility] Administration Insulin Glargine 20 unit 01/10/25 10:00 01/18/25 11:31 Insulin Glargine-Yfgn 100 Unit/Ml Pen SC Not Given DAILY [facility] Insulin Human Lispro 0 unit 01/09/25 16:00 01/18/25 11:33 Insulin Lispro 100 Unit/Ml Insuln.Pen SC Not Given ACHS [facility] Protocol Lactulose 10 gm 01/09/25 15:46 01/12/25 14:34 Lactulose 20 Gm/30 Ml Udc PO 10 gm TID PRN Administration constipation Magnesium Chloride 128 mg 01/10/25 10:00 01/18/25 11:31 Magnesium Chloride 64 Mg Delay Rel.Tablet PO Not Given DAILY [facility] Midodrine 10 mg 01/09/25 17:00 01/18/25 12:07 Midodrine Hcl 5 Mg Tablet PO 10 mg TIDCM [facility] Administration Morphine Sulfate 1 mg 01/11/25 13:23 01/17/25 19:56 Morphine 2 Mg/Ml Syringe IV 1 mg Q4H PRN PRN Administration Pain Score 6-10 Ondansetron HCl 4 mg 01/09/25 15:46 01/12/25 13:39 Ondansetron 4 Mg/2 Ml Vial IV 4 mg Q8H PRN PRN Administration NAUSEA/VOMITING Pantoprazole Sodium 20 mg 01/10/25 10:00 01/18/25 11:32 Pantoprazole Sodium 20 Mg Tablet PO Not Given DAILY [facility] Potassium Phos/Sodium Phos 1 packet 01/09/25 22:00 01/18/25 11:32 Na Biphos/Potassium Phosphate Packet PO Not Given BID [facility] Rifaximin 550 mg 01/09/25 22:00 01/17/25 21:06 Rifaximin 550 Mg Tablet PO 550 mg BID KRYSTIN Administration Sodium Bicarbonate 650 mg 01/09/25 22:00 01/18/25 11:32 Sodium Bicarbonate 650 Mg Tablet PO Not Given BID [facility] Sodium Chloride 10 - 40 ml 01/09/25 15:34 01/18/25 08:33 0.9% Saline Lock 10 Ml Syringe IV 20 ml UD PRN Administration SALINE FLUSH Thiamine HCl 100 mg 01/10/25 10:00 01/18/25 11:32 Thiamine Hydrochloride 100 Mg Tablet PO Not Given DAILY [facility] Medical History (Updated 01/17/25 @ [...] MD Cosigner Signature: Date CC: ~ Signed [facility] Work Phone: 1(270) 463-694406-16-2025 Consult note Author Buster Carmichael [facility] Note Date/Time January 17, 2025 4:57 pm [facility] Medical Records Department [address] [place] [address] Consultation 01/17/25 1522 MR#: [id number] Acct: [id number] Name: FRANKLIN WIGGINS Rep #:[id number] : 1965 59 From: Buster brewster MD PCP: YG Pena Status:ADM I N [facility] Assessment & Plan Assessment/Plan (1) Spinal stenosis, [...] be 8- 10/10 in severity when moving. [facility] Medical History (Updated 01/17/25 @ [...] (Auto) 67.2, Lymph % (Auto) 12.9 L, Chester % (Auto) 11.5 H, Eos % (Auto) 6.8 H, Baso % (Auto) 0.5, Absolute Neuts (auto) 5.7, Absolute Lymphs (auto) 1.09, Nucleated RBC % 0 01/17/25 06:28: POC Glucose 173 H 01/17/25 11:26: POC Glucose 141 H 01/17/25 1657 <Electronically signed by Buster Carmichael MD> Cosigner Signature (if applicable): CC: YG Elias~ Signed [facility] Work Phone: 1(213) 601-370706-16-2025 Progress note Author Anurag Irene [facility] Note Date/Time January 17, 2025 2:32 pm [facility] Medical Records Department [address] [place] [address] Progress Note - Hospitalist 01/17/25 1420 MR#: [id number] Acct: [id number] Name: FRANKLIN WIGGINS Rep #:[id number] : 1965 59 From: Anurag Mcnally PCP: YG Pena Status:ADM I N Location: [place] [address] Reason for Visit Reason for Visit: Diagnoses [...] (Auto) 67.2, Lymph % (Auto) 12.9 L, Chester % (Auto) 11.5 H, Eos % (Auto) [...] prophylaxis: SCDs Charges/Coding Visit Charges Inpatient E&M: 33538 Subs Hosp L2 01/17/25 1432 <Electronically signed by Anurag Irene MD> Cosigner Signature (if applicable): CC: ~ Signed [facility] Work Phone: 1(581) 459-607606-16-2025 [facility]06-15-2025 Progress note Author Cielo Tovar [facility] Note Date/Time January 16, 2025 3:37 pm [facility] Medical Records Department [address] [place] [address] [place] [address] Progress Note 01/16/25 1236 MR#: [id number] Acct: [id number] Name: FRANKLIN WIGGINS Rep #:[id number] : 1965 59 From: Cielo Tovar MD PCP: YG Pena Status:ADM I N Location: [place] [address] Subjective Subjective Patient seen and examined. He [...] (Auto) 64.9, Lymph % (Auto) 14.6 L, Chester % (Auto) 12.7 H, Eos % (Auto) [...] at home. Charges/Coding Visit Charges Inpatient E&M: 22172 Subs Hosp L2 01/16/25 1537 <Electronically signed by Cielo Tovar MD> Cielo Tovar MD Cosigner Signature (if applicable): CC: ~ Signed [facility] Work Phone: 1(514) 359-608906-14-2025 Consult note Author Buster Hahn [facility] Note Date/Time January 15, 2025 6:46 pm [facility] Medical Records Department [address] [place] [address] Pharmacokinetic/Renal -Consult 01/15/25 1846 MR#: [id number] Acct: [id number] Name: FRANKLIN WIGGINS Rep #:[id number] : 1965 59 From: Buster Lopes [facility] PCP: YG Pena Status:ADM I N Y Location: [place] [address] Consult Antibiotic Management Pharmacy has been consulted [...] Vancomycin (random level 01/16/25 at 0600) 01/15/25 1666 <Electronically signed by Buster Nieves [facility]> Date _ Buster Hahn [facility] Cosigner Signature (if applicable): Date CC: ~ Signed [facility] Work Phone: 1(596) 694-174206-14-2025 Progress note Author Cielo Tovar [facility] Note Date/Time January 15, 2025 6:29 pm [facility] Medical Records Department [address] [place] [address] Progress Note 01/15/25 1321 MR#: [id number] Acct: [id number] Name: FRANKLIN WIGGINS Rep #:[id number] : 1965 59 From: Cielo Tovar MD PCP: YG Pena Status:ADM I N Location: [place] [address] Subjective Subjective Patient seen and examined. He [...] (Auto) 65.6, Lymph % (Auto) 13.2 L, Chester % (Auto) 13.6 H, Eos % (Auto) [...] at multiple levels, as described. Reading Location: [place] [address] Physical Exam Const alert, oriented x3 and [...] at home. Charges/Coding Visit Charges Inpatient E&M: 82220 Subs Hosp L2 01/15/25 0289 <Electronically signed by Cielo Tovar MD> Cielo Tovar MD Cosigner Signature (if applicable): CC: ~ Signed [facility] Work Phone: 1(273) 797-773606-13-2025 Consult note Author Andreia Carvalho [facility] Note Date/Time January 14, 2025 8:04 pm [facility] Medical Records Department [address] [facility] [place] [address] Pharmacokinetic/Renal -Consult 01/14/252002 MR#: [id number] Acct: [id number] Name: FRANKLIN WIGGINS Rep #:[id number] : 1965 59 From: Andreia Carvalho PCP: YG Pena Status:ADM I N Y Location: [place] [address] Consult Antibiotic Management Pharmacy has been consulted [...] Signature (if applicable): Date CC: ~ Signed [facility] Work Phone: 1(840) 864-485906-13-2025 Progress [facility] Note Date/Time January 14, 2025 5:19 pm [facility] Medical Records Department [address] [address] Progress Note 01/14/25 1706 MR#: [id number] Acct: [id number] Name: FRANKLIN WIGGINS Rep #:[id number] : 1965 59 From: Cielo Tovar MD PCP: Josy Elias HEADER UPKayleigh Status:ADM I N Location: [place] [address] Subjective Subjective Patient seen and examined. He [...] (Auto) 65.3, Lymph % (Auto) 13.5 L, Chester % (Auto) 14.3 H, Eos % (Auto) [...] at multiple levels, as described. Reading Location: [place] [address] Thoracic Spine MRI 01/13/25 10:30 IMPRESSION: Abnormal marrow signal at T12 and L1. No acute compression deformity identified. Can not exclude metastatic involvement of these 2 vertebral bodies. Degenerative changes in the remainder of the lumbar spine. There is mild spinal stenosis at the level of T10-T11 and T11-T12. The patient could not tolerate postcontrast imaging. There is no cord compression Reading Location: [facility] Chest CT 01/14/25 08:06 IMPRESSION: 1. Partially visualized severe degenerative changes of T11-T12 with areas of erosive changes and lytic lesions. Metastasis can not be excluded. 2. Cirrhosis and ascites. 3. Mild lung emphysema. No suspicious nodules or focal consolidation. Reading Location: [facility] Physical Exam Const alert, oriented x3 and [...] medically stable. Charges/Coding Visit Charges Inpatient E&M: 23726 [facility] Hosp L2 01/14/25 9388 <Electronically signed by Cielo Tovar MD> Cielo Tovar MD Cosigner Signature (if applicable): CC: ~ Signed [facility] Work Phone: 1(554) 516-741306-13-2025 Radiology Diagnostic study [facility]06-12-2025 Progress note Author [facility] Note Date/Time January 13, 2025 6:28 pm [facility] Medical Records Department [address] [place] [address] Progress Note 01/13/25 1517 MR#: [id number] Acct: [id number] Name: FRANKLIN WIGGINS Rep #:[id number] : 1965 59 From: Cielo Tovar MD PCP: YG Pena Status:ADM I N Location: [place] [address] Subjective Subjective Patient seen and examined. He [...] (Auto) 65.6, Lymph % (Auto) 14.4 L, Chester % (Auto) 13.7 H, Eos % (Auto) [...] medically stable. Charges/Coding Visit Charges Inpatient E&M: 76038 Subs Hosp L2 01/13/251827 <Electronically signed by Cielo Tovar MD> Cielo Tovar MD Cosigner Signature (if applicable): CC: ~ Signed [facility] Work Phone: 1(466) 373-920206-12-2025 Consult note Author Francheska Montoya [facility] Note Date/Time January 13, 2025 9:36 am [facility] Medical Records Department [address] [place] [address] Pharmacokinetic/Renal -Consult 01/13/25 0934 MR#: [id number] Acct: [id number] Name: FRANKLIN WIGGINS Rep #:[id number] : 1965 59 From: Francheska Mcfarlane PCP: YG Pena Status:ADM I N Y Location: [place] [address] Consult Antibiotic Management Pharmacy has been consulted [...] signed by Francheska Montoya> Date _ Francheska Ferguson Signature (if applicable): Date CC: ~ Signed [facility] Work Phone: 1(583) 247-198006-11-2025 Progress note Author Cielo Tovar [facility] Note Date/Time January 12, 2025 4:51 pm [facility] Medical Records Department [address] [place] [address] Progress Note 01/12/25 1646 MR#: [id number] Acct: [id number] Name: FRANKLIN WIGGINS Rep #:[id number] : 1965 59 From: Cielo Tovar MD PCP: YG Pena Status:ADM I N Location: [place] [address] Subjective Subjective Patient seen and examined. He [...] (Auto) 68.2, Lymph % (Auto) 11.6 L, Chester % (Auto) 12.1 H, Eos % (Auto) [...] his facility. Charges/Coding Visit Charges Inpatient E&M: 81093 Subs Hosp L2 01/12/25 1651 <Electronically signed by Cielo Tovar MD> Cielo Tovar MD Cosigner Signature (if applicable): CC: ~ Signed [facility] Work Phone: 1(925) 919-422806-11-2025 Consult note Author Dilcia Vanessa [facility] Note Date/Time January 11, 2025 10:4 8pm [facility] Medical Records Department [address] [place] [address] Pharmacokinetic/Renal -Consult 01/11/251942 MR#: [id number] Acct: [id number] Name: FRANKLIN WIGGINS Rep #:[id number] : 1965 59 From: Dilcia Vanessa PCP: YG Pena Status:ADM I N Y Location: [place] [address] Consult Antibiotic Management Pharmacy has been consulted [...] Dilcia montalvo> Date _ Dilcia Vanessa 01/11/25 9013 <Electronically signed by Yaritza Holland> Cosigner Signature (if applicable): Date Yaritza Leo DO CC: ~ Signed [facility] Work Phone: 1(703) 275-684106-10-2025 Progress note Author Cielo Tovar [facility] Note Date/Time January 11, 2025 5:51 pm [facility] Medical Records Department [address] [place] [address] Progress Note 01/11/25 1510 MR#: [id number] Acct: [id number] Name: FRANKLIN WIGGINS Rep #:[id number] : 1965 59 From: Cielo Tovar MD PCP: BRITTANY PenaC Status:ADM I N Location: [place] [address] Subjective Subjective Patient seen and examined. He [...] % (Auto) Cancelled, Lymph % (Auto) Cancelled, Chester % (Auto) Cancelled, Eos % (Auto) Cancelled, [...] Drop Cells Cancelled, Ovalocytes Cancelled, Stomatocytes Cancelled, [place] Bodies Cancelled, Paloma Cells Cancelled, Bite Cells [...] (Auto) 69.6, Lymph % (Auto) 12.6 L, Chester % (Auto) 11.8 H, Eos % (Auto) [...] of anemia Charges/Coding Visit Charges Inpatient E&M: 58210 Subs Hosp L2 01/11/25 6518 <Electronically signed by Cielo Tovar MD> Cielo Tovar MD Cosigner Signature (if applicable): CC: ~ Signed [facility] Work Phone: 1([phone] 874-929606-10-2025 Consult note Author Jefferson Malave [facility] Note Date/Time January 11, 2025 4:41 pm [facility] Medical Records Department [address] [place] [address] Consultation - Surgical 01/11/25 1634 MR#: [id number] Acct: [id number] Name: FRANKLIN WIGGINS Rep #:[id number] : 1965 59 From: Jefferson Malave MD PCP: Josy Elias NP-C Status:ADM I N Location: [place] [id number]- Assessment & Plan Assessment/Plan (1) Umbilical hernia: [...] findings on CT consistent with portal hypertension. [facility] Medical History (Updated 01/11/25 @ [...] % (Auto) Cancelled, Lymph % (Auto) Cancelled, Chester % (Auto) Cancelled, Eos % (Auto) Cancelled, [...] Drop Cells Cancelled, Ovalocytes Cancelled, Stomatocytes Cancelled, [place] Bodies Cancelled, Paloma Cells Cancelled, Bite Cells [...] (Auto) 69.6, Lymph % (Auto) 12.6 L, Chester % (Auto) 11.8 H, Eos % (Auto) [...] 48 hours. Charges/Coding Visit Charges Inpatient E&M: 11348 Init Hosp L3 01/11/25 1641 <Electronically signed by Jefferson Malave MD> Cosigner Signature (if applicable): CC: YG Elias~ Signed [facility] Work Phone: 1(691) 943-250106-10-2025 Progress note Author Bola Meraz [facility] Note Date/Time January 11, 2025 9:07 am [facility] Medical Records Department [address] [place] [address] Progress Note - Administrative Liaison 01/11/25 0722 MR#: [id number] Acct: [id number] Name: FRANKLIN WIGGINS Rep #:[id number] : [...] % (Auto) Cancelled, Lymph % (Auto) Cancelled, Chester % (Auto) Cancelled, Eos % (Auto) Cancelled, [...] Drop Cells Cancelled, Ovalocytes Cancelled, Stomatocytes Cancelled, [place] Bodies Cancelled, [place] Cells Cancelled, Bite Cells Cancelled, Crenated Cell [...] (Auto) 69.6, Lymph % (Auto) 12.6 L, Chester % (Auto) 11.8 H, Eos % (Auto) [...] liver masses identified. Reading [facility] Physical Exam Const alert, oriented [...] flat affect Charges/Coding Visit Charges Inpatient E&M: 82135 Subs Hosp L2 01/11/2507 <Electronically signed by Bola Meraz DO> Cosigner Signature (if applicable): CC: ~ Signed [facility] Work Phone: 1(974) 151-725706-10-2025 Consult note Author Boone Garcia [facility] Note Date/Time January 11, 2025 2:14 am [facility] Medical Records Department [address] [place] [address] Pharmacokinetic/Renal -Consult 01/11/25 0211 MR#: [id number] Acct: [id number] Name: FRANKLIN WIGGINS Rep #:[id number] : [...] Signature (if applicable): Date CC: ~ Signed [facility] Work Phone: 1(815) 497-624806-09-2025 Progress note Author Cielo [facility] Note Date/Time January 10, 2025 6:23p [facility] Medical Records Department [address] [place] [address] Progress Note 01/10/25 1816 MR#: [id number] Acct: [id number] Name: FRANKLIN WIGGINS Rep #:[id number] : [...] % (Auto) Cancelled, Lymph % (Auto) Cancelled, Chester % (Auto) Cancelled, Eos % (Auto) Cancelled, [...] Drop Cells Cancelled, Ovalocytes Cancelled, Stomatocytes Cancelled, [place] Bodies Cancelled, [place] Cells Cancelled, Bite Cells Cancelled, Crenated Cell [...] 76.1 H, Lymph % (Auto) 8.8 L, Chester % (Auto) 8.2, Eos % (Auto) 5.9 [...] prophylaxis: Heparin Charges/Coding Visit Charges Inpatient E&M: 50443 [facility] Hosp L3 01/10/253 <Electronically signed by Cielo Tovar MD> Cielo Tovar MD Cosigner Signature (if applicable): CC: ~ Signed [facility] Work Phone: 1(254) 280-610806-09-2025 Progress note Author Bola Meraz [facility] Note Date/Time January 10, 2025 8:52a m [facility] Medical Records Department [address] [place] [address] Progress Note - Administrative Liaison 01/10/25 0700 MR#: [id number] Acct: [id number] Name: ROSALIEFRANLKIN Rep #:[id number] : 1965 59 From: [...] scheduled midodrine. This note was generated with FindMySong dictation software. It may contain incorrectwords, spelling, [...] 80.6 H, Lymph % (Auto) 7.2 L, Chester % (Auto) 6.7, Eos % (Auto) 4.2, [...] % (Auto) Cancelled, Lymph % (Auto) Cancelled, Chester % (Auto) Cancelled, Eos % (Auto) Cancelled, [...] Drop Cells Cancelled, Ovalocytes Cancelled, Stomatocytes Cancelled, [place] Bodies Cancelled, Paloma Cells Cancelled, Bite Cells [...] 76.1 H, Lymph % (Auto) 8.8 L, Chester % (Auto) 8.2, Eos % (Auto) 5.9 [...] liver masses identified. Reading Location: [facility] Physical Exam Const alert, oriented [...] flat affect Charges/Coding Visit Charges Inpatient E&M: 33216 Subs Hosp L3 01/10/25 0852 <Electronically signed by Bola Meraz DO> Cosigner Signature (if applicable): CC: ~ Signed [facility] Work Phone: [phone]) [phone] Consult note Author Lupillo Robbins [facility] Note Date/Time January 09, 2025 8:03p m [facility] Medical Records Department [address] [place] [address] Consultation - Administrative Liaison 01/09/25 1836 MR#: [id number] Acct: [id number] Name: FRANKLIN WIGGINS Rep #:[id number] : 1965 59 From: Lupillo Robbins MD PCP: Josy Elias, HEADER UP-C Status:ADM I N Location: ICU CVICU20 1-1 [...] 01/09/25 @ 17:[address] Yaritza Leo, ) Chronic hyponatremia Weakness Diarrhea Sepsis Acidosis, lactic [...] PO Q8 PRN fever o r pain 03/27/25 Unknown History calcium 500 mg (as 1 [...] mls @ 15 mls/hr 01/09/25 15:34 IV .[id number] PRN Saline Flush Sodium Chloride 250 mls @ 15 mls/hr 01/09/25 15:34 IV .V99S41D PRN Additional IVPB Infusion Norepinephrine Bitartrate 8 mg 250 mls @ 9.375 mls/hr 01/09/25 15:46 01/09/2515:56 / Sodium Chloride CONT INF Not Given .G00A26L [facility] Protocol 5 MCG/MIN Vancomycin IV-PHARMACY TO DOSE 500 mls @ 250 mls/hr 01/09/25 15:46 1 each/ Sodium Chloride IV PRN PRN Rx to Dose Protocol Meropenem 1 gm/ Sodium 120 mls @ 33 mls/hr 01/09/25 22:00 Chloride IV Q12 KRYSTIN Vancomycin HCl 1,000 mg in 200 mls @ 200 mls/hr 01/10/25 02:00 Vancomycin IV Q12H [facility] Insulin Glargine 20 unit 01/09/25 22:00 Insulin Glargine-Yfgn 100 Unit/Ml Pen SC QHS [facility] Insulin Glargine 20 unit 01/10/25 10:00 Insulin Glargine-Yfgn 100 Unit/Ml Pen SC DAILY [facility] Insulin Human Lispro 0 unit 01/09/25 16:00 01/09/25 16:27 Insulin Lispro 100 Unit/Ml Insuln.Pen SC Not Given ACHS [facility] Protocol Lactulose 10 gm 01/09/25 15:46 Lactulose 20 Gm/30 Ml Udc PO TID PRN constipation Magnesium Chloride 128 mg 01/10/25 10:00 Magnesium Chloride 64 Mg Delay Rel.Tablet PO DAILY [facility] Midodrine 10 mg 01/09/25 17:00 01/09/25 17:10 Midodrine Hcl 5 Mg Tablet PO 10 mg TIDCM [facility] Administration Ondansetron HCl 4 mg 01/09/25 15:46 Ondansetron 4 Mg/2 Ml Vial IV Q8H PRN PRN NAUSEA/VOMITING Pantoprazole Sodium 20 mg 01/10/25 10:00 Pantoprazole Sodium 20 Mg Tablet PO DAILY [facility] Potassium Phos/Sodium Phos 1 packet 01/09/25 22:00 Na Biphos/Potassium Phosphate Packet PO BID [facility] Rifaximin 550 mg 01/09/25 22:00 Rifaximin 550 Mg Tablet PO BID [facility] Sodium Bicarbonate 650 mg 01/09/25 22:00 Sodium Bicarbonate 650 Mg Tablet PO BID [facility] Sodium Chloride 10 - 40 ml 01/09/25 15:34 0.9% Saline Lock 10 Ml Syringe IV UD PRN SALINE FLUSH Thiamine HCl 100 mg 01/10/25 10:00 Thiamine Hydrochloride 100 Mg Tablet PO DAILY [facility] Vancomycin Protocol 1 lab 01/11/25 00:30 Vancomycin Trough/Random Due 01/11/25 02:30 DAILY [facility] Zinc Sulfate 50 mg 01/10/25 10:00 Zinc Sulfate 50 Mg Zinc (220 Mg) Oral Capsule PO DAILY [facility] Lab / Micro Data 01/09/25 10:40 [...] 80.6 H, Lymph % (Auto) 7.2 L, Chester % (Auto) 6.7, Eos % (Auto) 4.2, [...] hypertension. No liver masses identified. Reading Location: [facility] Assessment and Plan . Assessment [...] Robbins MD> Cosigner Signature (if applicable): CC: HEADER UP-C Josy Elias~ Signed [facility] Work Phone: [phone] Consult note Author Peter Carvajal [facility] Note Date/Time January 09, 2025 5:42p m [facility] Medical Records Department [address] [place] [address] Pharmacokinetic/Renal -Consult 01/09/25 1602 MR#: [id number] Acct: [id number] Name: FRANKLIN WIGGINS Rep #:[id number] : [...] Peter gusman> Date _ Peter Carvajal 01/09/25 4744 <Electronically signed by Yaritza Mcnally O> Cosigner Signature (if applicable): Date Yaritza Leo DO CC: ~ Signed [facility] Work Phone: 1([phone]) 504-574906-08-2025 History and physical note Author Yaritza Leo [facility] Note Date/Time January 09, 2025 5:41p m [facility] Medical Records Department [address] [place] [address] H&P Exam - Hospitalist 01/09/25 1408 MR#: [id number] Acct: [id number] Name: FRANKLIN WIGGINS Rep #:[id number] : 1965 59 From: Yaritza Leo DO PCP: YG Pena Status:ADM I N Location: ICU CVICU20 1-1 HPI - General General Date of Admission: 01/09/25 Date of Service: 01/09/25 Chief Complaint: Suprapubic abdominal pain [facility] Narrative FRANKLIN WIGGINS, is a 59 M who presented to the emergency department [facility] on 01/09/2025 due to back pain [...] medical history and currently resides at an [facility]. He denies any fever or chills. He [...] a repeat of 89/59 and pulse ox vqe761% on room air. CBC showed a leukocytosis [...] he was treated with 30 cc/kg bolus. [facility] Medical History (Updated 01/09/25 @ [...] 80.6 H, Lymph % (Auto) 7.2 L, Chester % (Auto) 6.7, Eos % (Auto) 4.2, [...] liver masses identified. Reading Location[facility] Assessment & Plan Assessment/Plan (1) [...] currently 102/60) Charges/Coding Visit Charges Inpatient E&M: 84221 Init Hosp L3 01/09/25 1741 <Electronically signed by Yaritza Leo DO> Cosigner Signature (if applicable): CC: YG Elias; Dr. Yaritza Leo DO~ Signed [facility] Work Phone: 1([phone]) 383-870606-08-2025 Discharge summary Author Breann Mendez [facility] Note Date/Time January 09, 2025 4:26p m [facility] Medical Records Department [address] [place] [address] Emergency Department Summary 01/09/25 MR#: [id number] Acct: [id number] Name: FRANKLIN WIGGINS Rep #:[id number] : [...] does not want thing for pain currently. [facility] Medical History Weakness Diarrhea Sepsis Acidosis, [...] mg PO BID [facility] ea #60 tabs 09/02/24 11/28/24 Rx acetaminophen [...] 80.6 H Lymph % (Auto) 7.2 L Chester % (Auto) 6.7 Eos % (Auto) 4.2 [...] Clarity Turbid Urine pH 6.0 Ur Specific [place] 1.015 Urine Protein 500 H Urine Glucose [...] liver masses identified. Reading Location: [facility] Critical Care Time Critical care time (excluding procedures): 30-74 minutes, Including time spent:,Discussing w/Patient &/or Family/Auto Parts Handler, Discussing w/Consultants, ArrangingAdmission or Transfer, Performing Direct [...] NP-C [Primary Care Provider] - Print Language: [place] Disposition Dis[facility]: [facility] What to do if you have Problems For any increased pain, shortness of breath, bleeding, nausea or vomiting, chestpain, or any unexpected problems, contact your Primary Care Provider. Call [facility] ([phone]) or report to the closest Emergency Room. Call 911 if necessary. 01/09/25 1626 <Electronically signed by Breann Mendez DO> Cosigner Signature (if applicable): CC: MOE-C Josy Elias ~ Signed [facility] Work Phone: 1(909) [phone] Radiology Diagnostic study [facility]06-04-2025 Consult note Author Kourtney Reece [facility] Note Date/Time January 05, 2025 5:01p m [facility] Medical Records Department [address] [place] [address] Counseling Note - Pharmacy 01/05/25 1447 MR#: [id number] Acct: [id number] Name: FRANKLIN WIGGINS Rep #:[id number] : 1965 59 From: Kourtney Reece PCP: YG Pena Status:ADM I N Y Location: [place] [address] Pharmacy PR Med Reconciliation Pharmacy Service has performed discharge [...] solution (Constulose) 15 ml PO TID PRN hhumkxxzzzcz84/27/25 L.acidophil,salivari-Bifido bifidum-Strep thermoph 175 mg capsule 1 [...] Protocol subcut ACHS #0 mL 01/05/25 01/05/25 9567 <Electronically signed by Kourtney Reece> Date _ Kourtney Reece Cosigner Signature (if applicable): Date CC: ~ Signed [facility] Work Phone: 1(328) 299-264806-04-2025 Discharge summary Author Hill Acuña [facility] Note Date/Time January 05, 2025 2:07p m [facility] Medical Records Department [address] [place] [address] Discharge Summary 01/05/25 1404 MR#: [id number] Acct: [id number] Name: FRANKLIN WIGGINS Rep #:[id number] : 1965 59 From: Hill Acuña MD PCP: YG Pena Status:ADM I N Location: [place] [address] Providers Date of Admission: 01/02/25 Date of [...] requested for PT OT eval and social director to assist with discharge planning ? 01/03/2025; [...] solution (Constulose) 15 ml PO TID PRN jlxxkuvpqffk19/27/25 L.acidophil,salivari-Bifido bifidum-Strep thermoph 175 mg capsule 1 [...] (Auto) 69.1, Lymph % (Auto) 13.4 L, Chester % (Auto) 11.6 H, Eos % (Auto) [...] 0RF Referrals / Follow Up: Josy Elias HEADER UP-C [Primary Care Provider] - Disposition Disposition (needs filled in before D/C Order can be placed): Group Home Facility Charges/Coding Visit Charges Inpatient E&M: 47104 Disch Hosp >30min 01/05/25 1407 <Electronically signed by Hill Acuña MD> Cosigner Signature (if applicable): CC: YG Elias; Dr. Hill Acuña MD~ Signed [facility] Work Phone: [phone]) 789-502206-04-2025 Discharge summary Author Hill Acuña [facility] Note Date/Time January 05, 2025 2:04p m [facility] Medical Records Department [address] [place] [address] Transfer to [facility] MR#: [id number] Acct: [id number] Name: FRANKLIN WIGGINS Rep #:[id number] : 1965 59 From: Hill Acuña MD PCP: YG Pena Status:ADM I N Certification of patient admission REQUIRED AT TIME OF ADMISSION. I CERTIFY THAT POST-HOSPITAL ECF SERVICES ARE REQUIRED TO BE GIVEN ON AN IN-PATIENT BASIS BECAUSE OF THE ABOVE NAMED PATIENT'S NEED FOR DETENTION CARE ON A CONTINUING BASIS FOR THE [...] requested for PT OT eval and social director to assist with discharge planning ? 01/03/2025; [...] in before D/C Order can be placed): Group Home Facility 01/05/25 1404 <Electronically signed by Hill Acuña MD> Cosigner Signature (if applicable): CC: YG Elias; Dr. Buster Fuchs MD ~ [facility] Work Phone: [phone] Progress note Author Hill Acuña [facility] Note Date/Time January 05, 2025 11:01 am [facility] Medical Records Department [address] [place] [address] Progress Note - Hospitalist 01/05/25 0737 MR#: [id number] Acct: [id number] Name: FRANKLIN WIGGINS Rep #:[id number] : 1965 59 From: Hill Acuña MD PCP: YG Pena Status:ADM I N Location: [place] [address] Reason for Visit Reason for Visit: Diagnoses Acute kidney failure, unspecified (01/02/25) Unspecified fall, initial encounter (01/02/25) Subjective Subjective Patient seen blood glucose control not optimal further adjustment made to patient insulin regimen. Patient awaiting insurance precertification prior [facility] Objective Data Objective Data Vital [...] (Auto) 69.1, Lymph % (Auto) 13.4 L, Chester % (Auto) 11.6 H, Eos % (Auto) [...] requested for PT OT eval and social director to assist with discharge planning ? 01/03/2025; [...] SCDs for Charges/Coding Visit Charges Inpatient E&M: 64218 Subs Hosp L2 01/05/25 1101 <Electronically signed by Hill Acuña MD> Cosigner Signature (if applicable): CC: ~ Signed [facility] Work Phone: [phone] 932-392906-03-2025 Progress note Author Hill Acuña [facility] Note Date/Time January 04, 2025 10:18 am [facility] Medical Records Department [address] [place] [address] Progress Note - Hospitalist 01/04/25 1014 MR#: [id number] Acct: [id number] Name: FRANKLIN WIGGINS Rep #:[id number] : 1965 59 From: iHll Acuña MD PCP: YG Pena Status:ADM I N Location: [place] [address] Reason for Visit Reason for Visit: Diagnoses [...] requested for PT OT eval and social director to assist with discharge planning ? 01/03/2025; [...] SCDs for Charges/Coding Visit Charges Inpatient E&M: 76620 Subs Hosp L2 01/04/25 1018 <Electronically signed by Hill Acuña MD> Cosigner Signature (if applicable): CC: ~ Signed [facility] Work Phone: [phone]) 829-959906-02-2025 Progress note Author Hill Acuña [facility] Note Date/Time January 03, 2025 9:52a m [facility] Medical Records Department [address] [place] [address] Progress Note - Hospitalist 01/03/25 0839 MR#: [id number] Acct: [id number] Name: FRANKLIN WIGGINS Rep #:[id number] : 1965 59 From: Hill Acuña MD PCP: YG Pena Status:ADM I N Location: [place] [address] Reason for Visit Reason for Visit: Diagnoses [...] (Auto) 67.5, Lymph % (Auto) 13.9 L, Chester % (Auto) 11.5 H, Eos % (Auto) [...] requested for PT OT eval and social director to assist with discharge planning ? 01/03/2025; [...] SCDs for Charges/Coding Visit Charges Inpatient E&M: 13713 Subs Hosp L2 01/03/25 0952 <Electronically signed by Hill Acuña MD> Cosigner Signature (if applicable): CC: ~ Signed [facility] Work Phone: [phone]) 667-346806-01-2025 Progress note Author Hill Acuña [facility] Note Date/Time January 02, 2025 9:58a m [facility] Medical Records Department [address] [facility] [place] [address] Progress Note - Hospitalist 01/02/25 0736 MR#: [id number] Acct: [id number] Name: FRANKLIN WIGGINS Rep #:[id number] : 1965 59 From: Hill Acuña MD PCP: YG Pena Status:ADM I N Location: [place] [address] Reason for Visit Reason for Visit: Diagnoses [...] (Auto) 68.0, Lymph % (Auto) 12.2 L, Chester % (Auto) 11.9 H, Eos % (Auto) [...] requested for PT OT eval and social director to assist with discharge planning 2. Severe [...] documentation, 38Minutes Charges/Coding Visit Charges Inpatient E&M: 09698 PROLNG IP/OBS E/M EA 15 MIN Multi Select Codes Visit Charges Visit Charges: 52707 PROLNG IP/OBS E/M EA 15 MIN 01/02/25 0958 <Electronically signed by Hill Acuña MD> Cosigner Signature (if applicable): CC: ~ Signed [facility] Work Phone: [phone]) 386-815406-01-2025 History and physical note Author Buster Fuchs [facility] Note Date/Time January 02, 2025 6:44a m [facility] Medical Records Department [address] [place] [address] H&P Exam - Hospitalist 01/02/25 0556 MR#: [id number] Acct: [id number] Name: FRANKLIN WIGGINS Rep #:[id number] : 1965 59 From: Buster duarte MD PCP: YG Pena Status:ADM I N Location: [place] [address] HPI - General General Date of Admission: 01/02/25 HPI Narrative FRANKLIN WIGGINS, is a 59 M who presents to the hospital with weakness and a fall. He did not hit his head or lose consciousness. He has had an extensive recent medical history with cirrhosis and UTI with staghorn calculus, he was in the ICUin October. 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 Was not considered to be a liver transplant candidate and was placed on anticoagulation. He has had a couple of readmissions for weakness and debility. [place] to possibly have aUTI given a staghorn [...] Heis receiving potassium infusion in the ER. [facility] Medical History Weakness Diarrhea Sepsis [...] (Auto) 68.0, Lymph % (Auto) 12.2 L, [place] % (Auto) 11.9 H, Eos % (Auto) [...] once verified Charges/Coding Visit Charges Inpatient E&M: 28898 Init Hosp L2 01/02/25 0644 <Electronically signed by Buster Fuchs MD> Cosigner Signature (if applicable): CC: YG Elias; Dr. Buster Fuchs MD~ Signed [facility] Work Phone: [phone]) 805-870706-01-2025 Evaluation note* Diagnosis Onset Date Resolution Status Admit Date Acute kidney injury resolved January 02, 2025 6:06am Fall resolved January 02, 2025 6:06am Abnormal urinalysis acute January 09, 2025 2:16pm Acute UTI acute January 09, 2025 2:16pm ISABEL (acute kidney injury) acute January 09, 2025 2:16pm Compression fracture of thoracic spine, non-traumatic acute Ju ne 2024 2:16pm Leukocytosis acute January 09 [...] acidosis resolved January 7:00am Hepatic encephalopathy inactive Ju ne 2024 7:00am Umbilical hernia inactive January 7:00am Chronic anemia inactive February 16, 2025 6:26pm Cirrhosis of liver with ascites inactive February 16, 2025 6:26pm Decompensated cirrhosis inactive J pam 2024 6:26pm Elevated liver enzymes inactive Ju ly 2024 6:26pm History of diabetes mellitus inactiv e February 16, 2025 6:26pm Hyperammonemia inactive February 16, 2025 6:26pm Acute hepatic encephalopathy inactiv e February 25, 2025 4:13pm Cirrhosis of liver with ascites inactive February 25, 2025 4:13pm Diffuse abdominal pain inactive ly 2024 4:13pm Elevated liver enzymes inactive ly 2024 4:13pm Hepatic encephalopathy inactive ly 2024 4:13pm Hyperammonemia inactive February 25, 2025 4:13pm Hepatic cirrhosis acute March 10, 2025 1:52pm Hepatic encephalopathy acute Se pt2024 11:18pm [facility] Work Phone: 1([phone]) 193-765606-01-2025 Discharge summary Author Roddy Reeves [facility] Note Date/Time January 02, 2025 6:00a m [facility] Medical Records Department [address] [place] [address] Emergency Department Summary 01/02/25 MR#: [id number] Acct: [id number] Name: FRANKLIN WIGGINS Rep #:[id number] : [...] was here recently and was sent home. [facility] Medical History Weakness Diarrhea Sepsis Acidosis, [...] mg PO BID [facility] ea #60 tabs 09/02/24 11/28/24 Rx insulin [...] (Auto) 68.0 Lymph % (Auto) 12.2 L [place] % (Auto) 11.9 H Eos % (Auto) [...] Clarity Turbid Urine pH 6.0 Ur Specific [place] 1.015 Urine Protein 100 H Urine Glucose [...] NP-C [Primary Care Provider] - Print Language: [place] Disposition Disposition: [facility] Care [facility] What to do if you have Problems For any increased pain, shortness of breath, bleeding, nausea or vomiting, chestpain, or any unexpected problems, contact your Primary Care Provider. Call [facility] ([phone]) or report to the closest Emergency Room. Call 911 if necessary. 01/02/25 0600 <Electronically signed by Roddy Reeves DO> Cosigner Signature (if applicable): CC: YG Elias ~ Signed [facility] Work Phone: 1(639) 211-333506-01-2025 Radiology Diagnostic study [facility]06-01-2025 Radiology Diagnostic study [facility]06-01-2025 Radiology Diagnostic study [facility] 12-30-2024 Radiology Diagnostic study [facility]05-25-2025 Radiology Diagnostic study [facility]05-14-2025 Radiology Diagnostic study [facility]04-20-2025 Radiology Diagnostic study [facility]04-17-2025 Telephone encounter Note* Telephone Encounter [...] will be scheduled to follow up with [facility] Wellness Rn. JEANNINE asked that Dr. Mosley inform this pt that he can return to our transplant center again and be re-evaluated once he has addressed his prohibitive psychosocial concerns (lack of caregivers, unstable housing, unstable finances, unreliable transportation). Dr. Mosley agreed to do so. [facility] Work Phone: 1(348) 405-748004-17-2025 Miscellaneous Notes* Telephone Encounter - Marah Arauz [...] will be scheduled to follow up with [facility] Wellness Rn. JEANNINE asked that Dr. Mosley inform this pt that he can return to our transplant center again and be re-evaluated once he has addressed his prohibitive psychosocial concerns (lack of caregivers, unstable housing, unstable finances, unreliable transportation). Dr. Mosley agreed to do so. [facility] Telephone encounter Note * Telephone [...] transportation. . Jeremi Abreu RN, BSN Liver General Operations Manager [facility] Work Phone: [phone]) 892-191004-17-2025 Miscellaneous Notes* Telephone Encounter - Jeremi Abreu [...] transportation. . Jeremi Abreu RN, BSN Liver General Operations Manager documented in this [facility]20[facility]-2025 Note [facility]04-[facility]-20[facility]-2025 [facility]-20[facility] 11-15-2024 [facility]-20[facility]-2025 [facility]04-[facility]-2025 History of Present illness Narrative* [...] 15, 2024 2:35 PM documented in this [facility]04-14-2025 [facility]04-14-2025 History of Present illness Narrative* Virgil Farley DDS - 11/15/2024 1:48 PM EDTSummary: Liver Transplant Dental Bedside Clearance See inpatient note for this encounter on 11/15/2024. Virgil Farley DDS documented in this encounterT[facility]04-14-2025 [facility]04-13-2025 [facility]04-12-2025 [facility]04-11-2025 History of Present illness Narrative* [...] mg capsule(s) rifAXIMin 550 mg tab(s) (XIFAXAN) kayeoxa-oiokbiten-kbduzer D3 500 mg-5 mcg (200 unit) 1 [...] Guzman, PharmJazmine [facility] Pharm[facility] Clinical Specialist Pager: [phone] documented in this encounterTog[facility]04-11-2025 NoteM[facility]04-11-2025 [facility]04-11-2025 History of Present illness Narrative* Jeremi Abreu RN - 11/12/2024 2:52 PM EDT The following information has been provided/discussed with the patient/family during Shared MedicalAppointment education class: Informed Consent for Organ Transplant Program Participation version February 20, 2023. SRTR information provided and questions answered. Informed patient to call authorization coordinator with any questions. [facility] information regarding multiple listings for organ transplantation Evaluation process including presentation to selection committee and listing criteria Surgical procedure, including post-operative management, hospitalization, immunosuppressive medications and their side effects (including the risk for hypertension, diabetes, kidney problems and cancers) and fdc follow up after transplant. Possibility of recurrent [...] was also addressed Patient was provided with [facility] information sheet regarding transplantation of [...] In Department: TRANSPLANT CENTER [facility]04[facility] History of Present illness Narrative* [...] 12, 2024 1:16 PM [facility]25 Miscellaneous Notes* Telephone Encounter - Jeremi Abreu RN - 11/12/2024 12:08 PM EDT INFORMED CONSENT Franklin Cornellelman Medical Record: [id number] Informed consent for Organ Transplant Program Participation [...] questions answered. Jeremi Abreu RN, BSN Liver General Operations Manager [facility] Telephone encounter Note * Telephone Encounter - Jeremi Abreu RN - 11/12/2024 12:08 PM EDT INFORMED CONSENT Franklin Burnhamman Medical Record: [id number] Informed consent for Organ Transplant Program Participation [...] questions answered. Jeremi Abreu RN, BSN Liver General Operations Manager [facility] Work Phone: 1(536) 958-298804-11-2025 NoteMarietta [facility]04-11-2025 NoteHNO ID: [id number] Author: KIRTI VELÁSQUEZ RN Service: Nursing Author Type: Registered Nurse Type: Nursing Progress Note Filed: 11/12/2024 00:58 Note Text: Other: PTTAC-no clot detected at 320-heparin gtt stopped-need futher orders-product responsibility liaison notifiedM[facility]etta [facility]04-10-2025 [facility] 11-11-2024 [facility]04-10-2025 NoteM[facility]04-09-2025 Discharge summary Author Kathie Powers [facility] Note Date/Time November 10, 2024 8:42 pm [facility] Medical Records Department [address] [place] [address] Discharge Summary 11/10/241936 MR#: [id number] Acct: [id number] Name: FRANKLIN WIGGINS Rep #:[id number] : 1965 59 From: Kathie Powers MD PCP: Care Physician,No Primary Status :ADM IN Location: [place] [address] Providers Date of Admission: 10/29/24 Date of Discharge: 11/10/24 Primary Care Physician: No Primary Care Phys Consultations 10/29/24 01:15 Consult: Urology Routine Consulting Provider: Foster Rascon Reason for Consult: Sepsis with UTI and Staghorn Calculus. EMERGENT Consult: No MD Notified: Yes Date Notified: 10/29/24 Time Notified: 08:07 Method of Notification: Verbal 10/29/24 01:47 Consult: Administrative Liaison / Pulmonary Medicine Routine Consulting Provider: Intensivists/Pulmonary Med Reason for Consult: Sepsis, UTI, Diarrhea, Abdominal Pain and Back Pain. EMERGENT Consult: No Notified: Yes Date Notified: 10/29/24 Time Notified: 04:58 Method of Notification: Text 10/30/24 03:54 Consult: Gastroenterology Routine Consulting Provider: [facility] Reason for Consult: BOYER, elevated ammonia EMERGENT Consult: No Notified: Yes Date Notified: 10/30/24 Time Notified: 07:31 Method of Notification: Text 11/09/24 21:26 Consult: Gastroenterology Routine Consulting Provider: [facility] Reason for Consult: cirrhosis,ascites,splenic thrombosis, low plts, possible dec in heidy motili EMERGENT Consult: No Notified: Yes Date Notified: 11/10/24 Time Notified: 05:35 Method of Notification: Text Consult: Oncology/Hematology Routine Consulting Provider: [facility] Reason for Consult: splenic [...] diabetes, staghorn colliculi, cirrhosis who presented to [facility] ED 10/29/2024 with sepsis and was [...] heme-onc was in agreement. Reach out to [facility] and ultimately patient was accepted by the fixed interest dealer Dr. Neal. Patient with bed assignment 11/10, patient to be transferred to [facility] Physical Exam Narrative General: Sleeping but [...] 83.0 H, Lymph % (Auto) 6.6 L, [place] % (Auto) 6.9, Eos % (Auto) 1.9, [...] Clarity Turbid, Urine pH 6.5, Ur Specific [place] 1.015, Urine Protein 500 H, Urine Glucose [...] Garza; Zachariah Glover; Scott Weston; Yue Delgadillo HEADER UP Discharge Orders/Prescriptions Prescriptions: No Action lidocaine 5 [...] Care Hospital Charges/Coding Visit Charges Inpatient E&M: 75579 Disch Hosp >30min 11/10/242041 <Electronically signed by Kathie Powers MD> Cosigner Signature (if applicable): CC: Dr. Kathie Powers MD; No Primary Care Physician~ Signed [facility] Work Phone: 1(654) 587-327404-09-2025 Discharge summary Author Kathie Powers [facility] Note Date/Time November 10, 2024 7:37 pm [facility] Medical Records Department [address] [place] [address] Instructions for Home/Discharge Instructions 11/10/24 193 MR#: [id number] Acct: [id number] Name: FRANKLIN WIGGINS Rep #:[id number] : [...] Garza; Zachariah Glover; Scott Weston; Yue Delgadillo HEADER UP Discharge Orders/Prescriptions Prescriptions: No Action lidocaine 5 [...] or pain) Referrals / Follow Up: Amrita Gibbs [Provider Group] - In 1 Week Care Physician,No Primary [Primary Care Provider] - Disposition Disposition (needs filled in before D/C Order can be placed): [facility] 11/10/241936<Electronically signed by Kathie Powers MD>Kathie [...] DO; No Primary Care Physician ~ Signed [facility] Work Phone: 1(516) 237-912904-09-2025 Consult note Author Foster Rascon [facility] Note Date/Time November 10, 2024 8:59 am [facility] Medical Records Department [address] [place] [address] Consultation 11/10/24 0857 MR#: [id number] Acct: [id number] Name: FRANKLIN WIGGINS Rep #:[id number] : 1965 59 From: Foster Rascon MD PCP: Care Physician,No Primary Status :ADM IN Location: [place] [address] Consult Date of Consult: 11/10/24 59-year-old male [...] applicable): CC: No Primary Care Physician~ Signed [facility] Work Phone: [phone]) 727-937904-08-2025 Progress note Author Kathie Powers [facility] Note Date/Time November 09, 2024 9:26 pm [facility] Medical Records Department [address] [place] [address] Progress Note - Hospitalist 11/09/242120 MR#: [id number] Acct: [id number] Name: FRANKLIN WIGGINS Rep #:[id number] : 1965 59 From: Kathie Powers MD PCP: Care Physician,No Primary Status :ADM IN Location: [place] [address] scan w/ ascites and [...] Cosigner Signature (if applicable): CC: ~ Signed [facility] Work Phone: 1(108) [phone] Progress note Author Kathie Powers [facility] Note Date/Time November 09, 2024 6:54 pm [facility] Medical Records Department [address] [facility] [place] [address] Progress Note - Hospitalist 11/09/24 1850 MR#: [id number] Acct: [id number] Name: FRANKLIN WIGGINS Rep #:[id number] : 1965 59 From: Kathie Powers MD PCP: Care Physician,No Primary Status :ADM IN Location: [place] [address] Reason for Visit Reason for Visit: Diagnoses [...] 79.1 H, Lymph % (Auto) 8.2 L, [place] % (Auto) 8.1, Eos % (Auto) 3.0, [...] with interval NG tube removal. Reading Location: [facility] Rhythm Strip Rhythm Strip: Sinus [...] 42 Minutes Charges/Coding Visit Charges Inpatient E&M: 94871 Subs Hosp L2 11/09/24 1854 <Electronically signed by Kathie Powers MD> Cosigner Signature (if applicable): CC: ~ Signed [facility] Work Phone: 1([phone]) 292-616904-08-2025 Radiology Diagnostic study [facility]04-08-2025 Radiology Diagnostic study [facility]04-07-2025 Progress note Author Kathie Powers [facility] Note Date/Time November 08, 2024 6:26 pm [facility] Medical Records Department [address] [place] [address] Progress Note - Hospitalist 11/08/24 1441 MR#: [id number] Acct: [id number] Name: ROSALIEFRANKLIN CARMELA Rep #:[id number] : 1965 59 From: Kathie Powers MD PCP: Care Physician,No Primary Status :ADM IN Location: [place] [address] Reason for Visit Reason for Visit: Diagnoses [...] 56 Minutes Charges/Coding Visit Charges Inpatient E&M: 98432 Subs Hosp L3 11/08/24 1503 <Electronically signed [...] Cosigner Signature (if applicable): cc: ~* Signed [facility] Work Phone: 1(131) 293-381004-06-2025 Progress note Author Hill Acuña [facility] Note Date/Time November 07, 2024 10:3 8am [facility] Medical Records Department [address] [place] [address] Progress Note - Hospitalist 11/07/24 0913 MR#: [id number] Acct: [id number] Name: ROSALIEFRANKLINKarma CASEY Rep #:[id number] : 1965 59 From: Hill Acuña MD PCP: Care Physician,No Primary Status :ADM IN Location: [place] [address] Reason for Visit Reason for Visit: Diagnoses [...] 81.5 H, Lymph % (Auto) 6.9 L, [place] % (Auto) 6.9, Eos % (Auto) 2.3, [...] Requested for PT OT eval and social director to assist with discharge planning ? 11/05/2024; plan is for patient to be discharged home when medically stable. Patient does not qualify for home health as he currently does not have a primarycare physician he has been given a referral to [facility] 1 Time spent in the patient's overall evaluation,decision-making process, review of diagnostic data, adjustment of management, discussion with other providers, nursing nursing and ancillary staff involved in patient's care documentation, 36 Minutes Charges/Coding Visit Charges Inpatient E&M: 43679 Subs Hosp L2 11/07/24 1038 <Electronically signed by Hill Acuña MD> Cosigner Signature (if applicable): CC: ~ Signed [facility] Work Phone: 1(730) [phone] Progress note Author Hill Acuña [facility] Note Date/Time November 06, 2024 10:5 7am [facility] Medical Records Department [address] [place] [address] Progress Note - Hospitalist 11/06/24 0756 MR#: [id number] Acct: [id number] Name: FRANKLIN WIGGINS Rep #:[id number] : 1965 59 From: Hill Acuña MD PCP: Care Physician,No Primary Status :ADM IN Location: [place] [address] Reason for Visit Reason for Visit: Diagnoses [...] Requested for PT OT eval and social director to assist with discharge planning ? 11/05/2024; plan is for patient to be discharged home when medically stable. Patient does not qualify for home health as he currently does not have a primarycare physician he has been given a referral to [facility] 1 Time spent in the patient's overall evaluation,decision-making process, review of diagnostic data, adjustment of management, discussion with other providers, nursing nursing and ancillary staff involved in patient's care documentation, 36 Minutes Charges/Coding Visit Charges Inpatient E&M: 84311 Subs Hosp L2 11/06/24 1057 <Electronically signed by Hill Acuña MD> Cosigner Signature (if applicable): CC: ~ Signed [facility] Work Phone: 1(761) 428-606004-04-2025 Progress note Author Hill Acuña [facility] Note Date/Time November 05, 2024 9:26 am [facility] Medical Records Department [address] [place] [address] Progress Note - Hospitalist 11/05/24 0924 MR#: [id number] Acct: [id number] Name: ROSALIEFRANKLIN GARCIA CARMELA Rep #:[id number] : 1965 59 From: Hill Acuña MD PCP: Care Physician,No Primary Status :ADM IN Location: [place] [address] Reason for Visit Reason for Visit: Diagnoses [...] 81.0 H, Lymph % (Auto) 6.7 L, [place] % (Auto) 7.1, Eos % (Auto) 2.3, [...] Requested for PT OT eval and social director to assist with discharge planning ? 11/05/2024; plan is for patient to be discharged home when medically stable. Patient does not qualify for home health as he currently does not have a primarycare physician he has been given a referral to [facility] Time spent in the patient's overall evaluation,decision-making process, review of diagnostic data, adjustment of management, discussion with other providers, nursing nursing and ancillary staff involved in patient's care documentation, 38 Minutes Charges/Coding Visit Charges Inpatient E&M: 41204 Subs Hosp L2 11/05/24 0926 <Electronically signed by Hill Acuña MD> Cosigner Signature (if applicable): CC: ~ Signed [facility] Work Phone: 1([phone]) 417-828804-03-2025 Progress note Author Hill Glasskarma [facility] Note Date/Time November 04, 2024 11:5 0am [facility] Medical Records Department [address] [facility] [address] Progress Note - Hospitalist 11/04/24 1105 MR#: [id number] Acct: [id number] Name: FRANKLIN WIGGINS Rep #:[id number] : 1965 59 From: Hill Acuña MD PCP: Care Physician,No Primary Status :ADM IN Location: [place] [address] Reason for Visit Reason for Visit: Diagnoses [...] 83.6 H, Lymph % (Auto) 4.9 L, [place] % (Auto) 5.9, Eos % (Auto) 1.1, Baso % (Auto) 0.5, Absolute Neuts (auto) 24.0 H, Absolute Lymphs (auto) 1.41, Nucleated RBC % 0, Differential Comment SCANNED, Diff Path Review December foll, Platelet Estimate SLT DEC, Sodium 131 [...] Requested for PT OT eval and social director to assist with discharge planning Time spent in the patient's overall evaluation,decision-making process, review of diagnostic data, adjustment of management, discussion with other providers, nursing nursing and ancillary staff involved in patient's care documentation, 38 Minutes Charges/Coding Visit Charges Inpatient E&M: 59388 Subs Hosp L2 11/04/24 1150 <Electronically signed by Hill Acuña MD> Cosigner Signature (if applicable): CC: ~ Signed [facility] Work Phone: 1(268) 346-966304-03-2025 Progress note Author [facility] Note Date/Time November 04, 2024 6:43 am [facility] Medical Records Department [address] [place] [address] Progress Note - Hospitalist 11/04/24 0642 MR#: [id number] Acct: [id number] Name: FRANKLIN WIGGINS Rep #:[id number] : 1965 59 From: Maria Guadalupe Shore MD PCP: Care Physician,No Primary Status :ADM IN Location: [place] [address] Hospitalist Note Patient with 15 beat asymptomatic VT. Electrolytes recently checked, mag normal range, K normal range. 11/04/24642 <Electronically signed by Maria Guadalupe Shore MD> Cosigner Signature (if applicable): CC: ~ Signed [facility] Work Phone: 1(555) 552-738204-03-2025 Progress note Author [facility] Note Date/Time November 03, 2024 10:3 8pm [facility] Medical Records Department [address] [place] [address] Progress Note - Hospitalist 11/03/242236 MR#: [id number] Acct: [id number] Name: FRANKLIN WIGGINS Rep #:[id number] : 1965 59 From: Maria Guadalupe Shore MD PCP: Care Physician,No Primary Status :ADM IN Location: [place] [address] Hospitalist Note Patient with mildly tachycardia through the late afternoon and evening. Will administer 500 cc bolus and reassess. From review of medications not normally onBB therapy. 11/03/242237 <Electronically signed by Maria Guadalupe Shore MD> Cosigner Signature (if applicable): CC: ~ Signed [facility] Work Phone: 1(641) 611-436004-02-2025 Progress note Author Hill Acuña [facility] Note Date/Time November 03, 2024 10:2 7am [facility] Medical Records Department [address] [place] [address] Progress Note - Hospitalist 11/03/24 1025 MR#: [id number] Acct: [id number] Name: FRANKLIN WIGGINS Rep #:[id number] : 1965 59 From: Hill Acuña MD PCP: Care Physician,No Primary Status :ADM IN Location: [place] [address] Reason for Visit Reason for Visit: Diagnoses [...] Requested for PT OT eval and social director to assist with discharge planning Time spent in the patient's overall evaluation,decision-making process, review of diagnostic data, adjustment of management, discussion with other providers, nursing nursing and ancillary staff involved in patient's care documentation, 38 Minutes Charges/Coding Visit Charges Inpatient E&M: 45466 Subs Hosp L2 11/03/24 1027 <Electronically signed by Hill Acuña MD> Cosigner Signature (if applicable): CC: ~ Signed [facility] Work Phone: 1(885) 576-205504-01-2025 Progress note Author Hill Acuña [facility] Note Date/Time November 02, 2024 10:0 5am [facility] Medical Records Department [address] [place] [address] Progress Note - Hospitalist 11/02/24 0804 MR#: [id number] Acct: [id number] Name: FRANKLIN WIGGINS Rep #:[id number] : 1965 59 From: Hill Acuña MD PCP: Care Physician,No Primary Status :ADM IN Location: [place] [address] Reason for Visit Reason for Visit: Diagnoses [...] 50 Minutes Charges/Coding Visit Charges Inpatient E&M: 49558 Subs Hosp L3 11/02/24 1005 <Electronically signed by Hill Acuña MD> Cosigner Signature (if applicable): CC: ~ Signed [facility] Work Phone: 1([phone]) 850-974203-31-2025 Progress note Author Hill Acuña [facility] Note Date/Time November 01, 2024 11: 41am [facility] Medical Records Department [address] [place] [address] Progress Note - Hospitalist 11/01/24 1128 MR#: [id number] Acct: [id number] Name: FRANKLIN WIGGINS Rep #:[id number] : 1965 59 From: Hill Acuña MD PCP: Care Physician,No Primary Status :ADM IN Location: [place] [address] Reason for Visit Reason for Visit: Diagnoses [...] 50 Minutes Charges/Coding Visit Charges Inpatient E&M: 44640 Subs Hosp L3 11/01/24 1141 <Electronically signed by Hill Acuña MD> Cosigner Signature (if applicable): CC: ~ Signed [facility] Work Phone: 1(696) 471-575603-31-2025 Progress note Author Niranjan Li [facility] Note Date/Time November 01, 2024 8:4 4am [facility] Medical Records Department [address] [place] [address] Progress Note 11/01/24 0836 MR#: [id number] Acct: [id number] Name: FRANKLIN WIGGINS Rep #:[id number] : 1965 59 From: Niranjan Li DO PCP: Care Physician,No Primary Status :ADM IN Location: [place] [address] Progress Note Patient has a little bit [...] doses of vancomycin. Visit Charges Inpatient E&M: 30657 Subs Hosp L3 11/01/24 0835 <Electronically signed by Niranjan Li DO> Niranjan Li DO Cosigner Signature (if applicable): CC: ~ Signed [facility] Work Phone: 1(495) 290-395603-31-2025 Consult note Author Ale Renee [facility] Note Date/Time November 01, 2024 6:1 1am [facility] Medical Records Department [address] [place] [address] Pharmacokinetic/Renal -Consult 11/01/24 0604 MR#: [id number] Acct: [id number] Name: FRANKLIN WIGGINS Rep #:[id number] : 1965 59 From: Ale Renee PCP: Care Physician,No Primary Status :ADM IN Y Location: [place] [address] Consult Antibiotic Management Pharmacy has been consulted [...] Date Hill Caro DO CC: ~ Signed [facility] Work Phone: 1([phone]) 452-940903-30-2025 Progress note Author Buster Fuchs [facility] Note Date/Time October 31, 2024 9:5 5am [facility] Medical Records Department [address] [place] [address] Progress Note - Hospitalist 10/31/24 0952 MR#: [id number] Acct: [id number] Name: FRANKLIN WIGGINS Rep #:[id number] : [...] (Auto) 80.3 H, Lymph %(Auto) 5.9 L, [place] % (Auto) 7.9, Eos % (Auto) 1.5, [...] they did add IV Flagyl ? Appreciate welder fitter gas assistance 2. Acute metabolic cephalopathy with nonalcoholic [...] DVT: SCDs Charges/Coding Visit Charges Inpatient E&M: 20252 Subs Hosp L2 10/31/24 0955 <Electronically signed by Buster Fuchs MD> Cosigner Signature (if applicable): CC: ~ Signed [facility] Work Phone: 1(574) 217-565503-30-2025 Consult note Author Foster Rascon [facility] Note Date/Time October 31, 2024 7:3 1am [facility] Medical Records Department [address] [place] [address] Consultation 10/31/24 0730 MR#: [id number] Acct: [id number] Name: FRANKLIN WIGGINS Rep #:[id number] : [...] applicable): CC: No Primary Care Physician~ Signed [facility] Work Phone: 1([phone]) [phone] Consult note Author Niranjan Li [facility] Note Date/Time October 30, 2024 9:3 4pm [facility] Medical Records Department [address] [place] [address] Consultation - GI 10/30/242047 MR#: [id number] Acct: [id number] Name: FRANKLIN WIGGINS Rep #:[id number] : [...] of yellow-colored fluid removed. He presented backto [facility] ER complaining of abdominal pain, back [...] He is also on Zosyn for urosepsis. [facility] Medical History Chronic hypotension Obesity [...] 85.6 H, Lymph % (Auto) 4.3 L, [place] % (Auto) 7.3, Eos % (Auto) 0.5, [...] NG tube in satisfactory position. Reading Location: [facility] Assessment & Plan Assessment/Plan (1) [...] this admission. Charges/Coding Visit Charges Inpatient E&M: 51579 Init Hosp L3 10/30/242133 <Electronically signed by Niranjan Li DO> Cosigner Signature (if applicable): CC: No Primary Care Physician~ Signed [facility] Work Phone: [phone]) [phone] Consult note Author Kourntey Reece [facility] Note Date/Time October 30, 2024 4:1 2pm [facility] Medical Records Department [address] [place] [address] Pharmacokinetic/Renal -Consult 10/30/24 1552 MR#: [id number] Acct: [id number] Name: FRANKLIN WIGGINS Rep #:[id number] : [...] Date Buster Fuchs MD CC: ~ Signed [facility] Work Phone: 1([phone]) 386-922703-29-2025 Progress note [facility] Note Date/Time October 30, 2024 10: 45am [facility] Medical Records Department [address] [facility] [place] [address] Progress Note - Administrative Liaison 10/30/24 1037 MR#: [id number] Acct: [id number] Name: FRANKLIN WIGGINS Rep #:[id number] : [...] Patch TOPICAL Not Given DAILY [facility] Protocol Midodrine 10 mg 10/29/24 02:00 [...] Vancomycin Trough/Random Due [facility] 10/30/24 16:30 DAILY [facility] Zinc Sulfate 50 mg 10/29/24 10:00 [...] 85.5 H, Lymph % (Auto) 4.6 L, [place] % (Auto) 7.4, Eos % (Auto) 1.2, [...] 85.6 H, Lymph % (Auto) 4.3 L, [place] % (Auto) 7.3, Eos % (Auto) 0.5, [...] NG tube in satisfactory position. Reading Location: [facility] Assessment and Plan . Assessment [...] Cosigner Signature (if applicable): CC: ~ Signed [facility] Work Phone: 1([phone]) [phone] Consult note Author Foster Rascon [facility] Note Date/Time October 30, 2024 9:5 8am [facility] Medical Records Department [address] [place] [address] Consultation - Urology 10/30/24 0956 MR#: [id number] Acct: [id number] Name: ROSALIEFRANKLIN CARMELA Rep #:[id number] [id number] : 1965 59 [...] nephrostomy tube we will continue to follow. [facility] Medical History Chronic hypotension Obesity [...] 85.5 H, Lymph % (Auto) 4.6 L, [place] % (Auto) 7.4, Eos % (Auto) 1.2, [...] 85.6 H, Lymph % (Auto) 4.3 L, Chester % (Auto) 7.3, Eos % (Auto) 0.5, [...] in satisfactory position. Reading Location: [facility] 10/30/24 0958 <Electronically signed by Foster Rascon MD> Cosigner Signature (if applicable): CC: No Primary Care Physician~ Signed [facility] Work Phone: 1(486) 876-927703-29-2025 Progress note Author Buster Fuchs [facility] Note Date/Time October 30, 2024 8:2 9am [facility] Medical Records Department [address] [place] [address] Progress Note - Hospitalist 10/30/2420 MR#: [id number] Acct: [id number] Name: FRANKLIN WIGGINS Rep #:[id number] : [...] 85.5 H, Lymph % (Auto) 4.6 L, Chester % (Auto) 7.4, Eos % (Auto) 1.2, [...] 85.6 H, Lymph % (Auto) 4.3 L, Chester % (Auto) 7.3, Eos % (Auto) 0.5, [...] 3. Left-sided ureteral stent noted. Reading Location: [facility] Rhythm Strip Rhythm Strip: Sinus Rhythm [...] antibiotics ? Cultures are pending ? Appreciate welder fitter gas assistance 2. Acute metabolic cephalopathy with nonalcoholic [...] DVT: SCDs Charges/Coding Visit Charges Inpatient E&M: 85836 Subs Hosp L2 10/30/24 0829 <Electronically signed by Buster Fuchs MD> Cosigner Signature (if applicable): CC: ~ Signed [facility] Work Phone: 1(545) 171-115103-29-2025 Radiology Diagnostic study [facility]03-28-2025 Consult note Author Foster Rascon [facility] Note Date/Time October 29, 2024 10: 32am [facility] Medical Records Department [address] [place] [address] Consultation - Urology 10/29/24 0808 MR#: [id number] Acct: [id number] Name: FRANKLIN WIGGINS Rep #:[id number] : [...] emergency intervention is necessary from my standpoint [facility] Medical History Chronic hypotension Obesity [...] 83.0 H, Lymph % (Auto) 5.6 L, Chester % (Auto) 8.4, Eos % (Auto) 1.4, [...] vertebral body compression fracture deformities. Reading Location: [facility] 10/29/24 1032 <Electronically signed by Foster Rascon MD> Cosigner Signature (if applicable): CC: No Primary Care Physician~ Signed [facility] Work Phone: 1([phone]) 238-612203-28-2025 Consult note Author Bloa Meraz [facility] Note Date/Time October 29, 2024 10: 24am [facility] Medical Records Department [address] [facility] [place] [address] Consultation - Administrative Liaison 10/29/24 0744 MR#: [id number] Acct: [id number] Name: FRANKLIN WIGGINS Rep #:[id number] : [...] coverage initiated. This note was generated with FindMySong dictation software. It may contain incorrectwords, spelling, [...] stable, without the need for vasopressor support. [facility] Medical History Chronic hypotension Obesity [...] 83.0 H, Lymph % (Auto) 5.6 L, Chester % (Auto) 8.4, Eos % (Auto) 1.4, [...] vertebral body compression fracture deformities. Reading Location: [facility] Charges/Coding Visit Charges Inpatient E&M: 23829 Init Hosp L3 10/29/24 1024 <Electronically signed by Bola Meraz DO> Cosigner Signature (if applicable): CC: No Primary Care Physician~ Signed [facility] Work Phone: [phone]) 374-158003-28-2025 Radiology Diagnostic study [facility]03-28-2025 History and physical note Author Hill Wright [facility] Note Date/Time October 29, 2024 6:4 7am [facility] Medical Records Department [address] [place] [address] H&P Exam - Hospitalist 10/29/24 0033 MR#: [id number] Acct: [id number] Name: FRANKLIN WIGGINS CARMELA Rep #:[id number] : 1965 59 From: Hill Luna DO PCP: Care Physician,No Primary Status :ADM IN Location: ICU ICU02-1 HPI - General General Date of Admission: 10/29/24 Date of Service: 10/29/24 Chief Complaint: Abdominal, Back Pain and Diarrhea. HPI Diana WIGGINS, is a 59 M with a [...] toSeptember 02, 2024 with patient diagnosed with vxzjm-hp-sgmlirc hypotension in thesetting of acute hepatic encephalopathy [...] fluid removed who once again presents to [facility] ER complaining of abdominal pain, back [...] thatis expected to extend beyond 2 midnights. [facility] Medical History Chronic hypotension Obesity [...] 83.0 H, Lymph % (Auto) 5.6 L, Chester % (Auto) 8.4, Eos % (Auto) 1.4, [...] vertebral body compression fracture deformities. Reading Location: [facility] Assessment & Plan Assessment/Plan (1) [...] and sensitivity data. Give acetaminophen prn for oalv-wr-ahbcghbi (level 1-5/10) pain or fever. Give morphine [...] appreciated in advance. Finally, we will consult welder fitter gas to see this patient on-rounds in the AM for further recommendations with help appreciated in advance. 2. Admission here from August 29, 2024 to September 02, 2024 with patient diagnosed with nlyoi-xc-gdiunhn hypotension in the setting of acute hepatic [...] responsive hypotension Charges/Coding Visit Charges Inpatient E&M: 99720 Init Hosp L3 10/29/24 0647 <Electronically signed by Hill Caro DO> Cosigner Signature (if applicable): CC: Dr. Hill Caro, ; No Primary Care Physician~ Signed [facility] Work Phone: [phone] Consult note Author Ale Renee [facility] Note Date/Time October 29, 2024 3:3 4am [facility] Medical Records Department [address] [facility] [place] [address] Pharmacokinetic/Renal -Consult 10/29/24316 MR#: [id number] Acct: [id number] Name: ROSALIEFRANKLIN CARMELA Rep #:[id number] : 1965 59 [...] Date Hill Caro DO CC: ~ Signed [facility] Work Phone: [phone] 412-872903-28-2025 Discharge summary Author Alber Dunn [facility] Note Date/Time October 29, 2024 1:0 4am [facility] Medical Records Department [address] [place] [address] Emergency Department Summary 10/28/24 MR#: [id number] Acct: [id number] Name: FRANKLIN WIGGINS Rep #:[id number] : [...] Prior similar symptoms: Yes Recent Illness[facility] Medical History Chronic hypotension Obesity [...] There is a pressure was 81/50 5 hjonga04/60 when I am in the room it [...] 83.0 H Lymph % (Auto) 5.6 L Chester % (Auto) 8.4 Eos % (Auto) 1.4 [...] Clarity Cloudy Urine pH 6.5 Ur Specific [place] 1.015 Urine Protein 500 H Urine Glucose [...] vertebral body compression fracture deformities. Reading Location: [facility] Rhythm Strip Rhythm Strip: Sinus Rhythm Rate: 83 Ectopy: None EKG Initial EKG: Attestation: I personally reviewed and interpreted this EKG as follows: Interpretation: Sinus Rhythm and No Acute Injury Pattern Comments: Normal sinus rhythm rate 83 no acute signs of UT or ischemia. No dysrhythmia. Critical Care Time Critical Care Time: Yes Critical care time (excluding procedures): 30-74 minutes, Including time spent:,Discussing w/Patient &/or Family/Auto Parts Handler, Discussing w/Consultants, ArrangingAdmission or Transfer, Performing Direct Patient Care at Bedside and - (38 min) Discharge Plan Dx/Rx/DC Orders Clinical Impression: Chronic back pain, Chronic abdominal pain, Leukocytosis, Acute UTI, Acute hypotension, Acidosis, lactic, Sepsis Disposition Disposition: [facility] Care [facility] What to do if you have Problems For any increased pain, shortness of breath, bleeding, nausea or vomiting, chestpain, or any unexpected problems, contact your Primary Care Provider. Call [facility] ([phone]) or report to the closest Emergency Room. Call 911 if necessary. 10/29/24 0104 <Electronically signed by Alber Dunn MD> Cosigner Signature (if applicable): CC: No Primary Care Physician ~ Signed [facility] Work Phone: [phone] Evaluation note* Diagnosis Onset Date Resolution Status Admit Date Clostridium difficile colitis acute October 29, 2024 12:43am History of uric acid staghor n calculus acute October 29, 2024 12:43am Hyponatremia acute October 29, 2024 12:43am Leukocytosis acute October 29, 2024 12:43am Obesity (BMI 30.0-34.9) acute [facility] 2024 12:43am Chronic abdominal pain chronic [facility] 2024 12:43am Chronic back pain chronic [...] 2024 7:00am Lactic acidosis acute January 7:00am [facility] Work Phone: 1([phone]) 325-954103-28-2025 Evaluation note* Diagnosis Onset Date Resolution Status Admit Date Clostridium difficile colitis acute October 29, 2024 12:43am History of uric acid staghor n calculus acute October 29, 2024 12:43am Hyponatremia acute October 29, 2024 12:43am Leukocytosis acute October 29, 2024 12:43am Obesity (BMI 30.0-34.9) acute [facility] 2024 12:43am Chronic abdominal pain chronic [facility] 2024 12:43am Chronic back pain chronic [...] acic spine, non-traumatic acute January 09 2:16pm Lactic acidosis acute January 09, 2025 [...] January 7:00am Umbilical hernia acute January 7:00am [facility] Work Phone: 1([phone]) 419-884903-28-2025 Evaluation note* Diagnosis Onset Date Resolution Status Admit Date Clostridium difficile colitis acute October 29, 2024 12:43am History of uric acid staghor n calculus acute October 29, 2024 12:43am Hyponatremia acute October 29, 2024 12:43am Leukocytosis acute October 29, 2024 12:43am Obesity (BMI 30.0-34.9) acute [facility] 2024 12:43am Chronic abdominal pain chronic [facility] 2024 12:43am Chronic back pain chronic [...] January 7:00am Umbilical hernia inactive January 7:00am [facility] Work Phone: [phone] Evaluation note* Diagnosis Onset Date Resolution Status [...] Chronic anemia chronic February 16, 2025 6:26pm [facility] Work Phone: [phone] Evaluation note* Diagnosis Onset Date Resolution Status Admit Date Clostridium difficile colitis acute October 29, 2024 12:43am History of uric acid staghor n calculus acute October 29, 2024 12:43am Hyponatremia acute October 29, 2024 12:43am Leukocytosis acute October 29, 2024 12:43am Obesity (BMI 30.0-34.9) acute [facility] 2024 12:43am Chronic abdominal pain chronic [facility] 2024 12:43am Chronic back pain chronic [...] January 28 7:00am Hepatic encephalopathy resolved Ju ca 2024 7:00am Lactic acidosis resolved January 7:00am Umbilical hernia inactive January 7:00am Cirrhosis of liver with ascites acut e February 16, 2025 6:26pm Decompensated cirrhosis acute J pam 2024 6:26pm Elevated liver enzymes acute Ju 2024 6:26pm History of diabetes mellitus acute February 16, 2025 6:26pm Hyperammonemia acute February 16, 2025 6:26pm Chronic anemia chronic February 16, 2025 6:26pm [facility] Work Phone: [phone]) 504-722203-28-2025 Evaluation note* Diagnosis Onset Date Resolution Status Admit Date Clostridium difficile colitis acute October 29, 2024 12:43am History of uric acid staghor n calculus acute October 29, 2024 12:43am Hyponatremia acute October 29, 2024 12:43am Leukocytosis acute October 29, 2024 12:43am Obesity (BMI 30.0-34.9) acute [facility] 2024 12:43am Chronic abdominal pain chronic [facility] 2024 12:43am Chronic back pain chronic [...] acidosis resolved January 7:00am Hepatic encephalopathy inactive Ju ne 2024 7:00am Umbilical hernia inactive January [...] Hepatic cirrhosis acute March 10, 2025 1:52pm [facility] Work Phone: [phone]) [phone] Discharge summary [facility] Medical Records Department [address] [place] [address] Emergency Department Summary 10/28/24 MR#: [id number] Acct: [id number] Name: FRANKLIN WIGGINS Rep #:[id number] : [...] There is a pressure was 81/50 5 yfntdj90/60 when I am in the room it [...] sepsis. Currently he is stable at12:10 AM. [facility] blood pressure is 110/67. Spoke to [...] 83.0 H Lymph % (Auto) 5.6 L [place] % (Auto) 8.4 Eos % (Auto) 1.4 [...] Clarity Cloudy Urine pH 6.5 Ur Specific [place] 1.015 Urine Protein 500 H Urine Glucose [...] vertebral body compression fracture deformities. Reading Location: [facility] Rhythm Strip Rhythm Strip: Sinus Rhythm Rate: 83 Ectopy: None EKG Initial EKG: Attestation: I personally reviewed and interpreted this EKG as follows: Interpretation: Sinus Rhythm and No Acute Injury Pattern Comments: Normal sinus rhythm rate 83 no acute signs of UT or ischemia. No dysrhythmia. Critical Care Time Critical Care Time: Yes Critical care time (excluding procedures): 30-74 minutes, Including time spent:,Discussing w/Patient &/or Family/Auto Parts Handler, Discussing w/Consultants, ArrangingAdmission or Transfer, Performing Direct Patient Care at Bedside and - (38 min) Discharge Plan Dx/Rx/DC Orders Clinical Impression: Chronic back pain, Chronic abdominal pain, Leukocytosis, Acute UTI, Acute hypotension, Acidosis, lactic, Sepsis Disposition Dis[facility]: [facility] What to do if you have Problems For any increased pain, shortness of breath, bleeding, nausea or vomiting, chestpain, or any unexpected problems, contact your Primary Care Provider. Call [facility] ([phone]) or report tothe closest Emergency Room. Call 911 if necessary. 10/29/24 0104 Cosigner Signature (if applicable): CC: No Primary Care Physician ~ Signed [facility]03-27-2025 Radiology Diagnostic study note [facility] Imaging Services [address] [place], [place] [address] Abdomen/Pelvis W IV Cont ONLY MR#: [id number] Acct: [id number] Name: ROSALIEFRANKLIN GARCIA Rep #: [id number] : 1965 M 59 From: Cassandra Starkey MD PCP: Care Physician,No Primary Status: REG ER Study:Abdomen/Pelvis W IV Cont ONLY Date of E xam: 10/28/24 Exam# [id number] Ordering Dr: Tee Dunn MD PROCEDURE: ABDOMEN/PELVIS [...] vertebral body compression fracture deformities. Reading Location: [facility] CC: Dr. Alber Dunn MD; No Primary Care Physician ~ Time Study Clerk: Signed [facility]03-27-2025 Discharge summary Author Alber Dunn [facility] Note Date/Time October 29, 2024 1:0 4am [facility] Medical Records Department [address] [place] [address] Emergency Department Summary 10/28/24 MR#: [id number] Acct: [id number] Name: FRANKLIN WIGGINS Rep #:[id number] : [...] There is a pressure was 81/50 5 ooniib60/60 when I am in the room it [...] 83.0 H Lymph % (Auto) 5.6 L [place] % (Auto) 8.4 Eos % (Auto) 1.4 [...] Clarity Cloudy Urine pH 6.5 Ur Specific [place] 1.015 Urine Protein 500 H Urine Glucose [...] vertebral body compression fracture deformities. Reading Location: [facility] Rhythm Strip Rhythm Strip: Sinus Rhythm Rate: 83 Ectopy: None EKG Initial EKG: Attestation: I personally reviewed and interpreted this EKG as follows: Interpretation: Sinus Rhythm and No Acute Injury Pattern Comments: Normal sinus rhythm rate 83 no acute signs of UT or ischemia. No dysrhythmia. Critical Care Time Critical Care Time: Yes Critical care time (excluding procedures): 30-74 minutes, Including time spent:,Discussing w/Patient &/or Family/Auto Parts Handler, Discussing w/Consultants, ArrangingAdmission or Transfer, Performing Direct Patient Care at Bedside and - (38 min) Discharge Plan Dx/Rx/DC Orders Clinical Impression: Chronic back pain, Chronic abdominal pain, Leukocytosis, Acute UTI, Acute hypotension, Acidosis, lactic, Sepsis Disposition Disposition: Acute Care Hospital [facility] What to do if you have Problems For any increased pain, shortness of breath, bleeding, nausea or vomiting, chestpain, or any unexpected problems, contact your Primary Care Provider. Call [facility] ([phone]) or report to the closest Emergency Room. Call 911 if necessary. 10/29/24 0104 <Electronically signed by Alber Dunn MD> Cosigner Signature (if applicable): CC: No Primary Care Physician ~ Signed [facility] Work Phone: 1([phone]) 341-743203-03-2025 Procedure note* Joey Huang DO - 10/04/2024 5:17 PM ESTAssociated Order(s): Paracentesis Post-Procedure Diagnose(s): Other ascites Paracentesis Date/Time: 10/04/2024 5:17 PM Performed by: Joey Huang DO Authorized by: Joey Huang DO Consent: Consent obtained: Written Consent given by: Patient Risks, benefits, and alternatives were discussed: yes Risks discussed: Bleeding, bowel perforation and infection Alternatives discussed: No treatment [place] protocol: Procedure explained and questions answered to [...] bandage Post-procedure details: Procedure completion: Tolerated [facility] Work Phone: 1(709) 568-996603-03-2025 Procedure note* Joey Huang DO - 10/04/2024 5:17 PM ESTAssociated Order(s): Paracentesis Post-Procedure Diagnose(s): Other ascites Paracentesis Date/Time: 10/04/2024 5:17 PM Performed by: Joey Huang DO Authorized by: Joey Huang DO Consent: Consent obtained: Written Consent given by: Patient Risks, benefits, and alternatives were discussed: yes Risks discussed: Bleeding, bowel perforation and infection Alternatives discussed: No treatment [place] protocol: Procedure explained and questions answered to [...] details: Procedure completion: Tolerated documented in this [facility] Work Phone: 1([phone]) 757-553403-03-2025 Consult note* Joey Huang, DO - 10/04/2024 5:13 PM EST Reason For Consult Ascites History Of Present Illness Franklin Wiggins is a 59 y.o. male presenting with abdominal pain. He presented to the emergency room from [facility] secondary to increasing abdominal girth [...] Assessment & Plan Joey Huang DO [facility] Work Phone: 1(149) 983-440503-03-2025 Consult note* Joey Huang DO - 10/04/2024 5:13 PM EST Reason For Consult Ascites History Of Present Illness Franklin Wiggins is a 59 y.o. male presenting with abdominal pain. He presented to the emergency room from [facility] secondary to increasing abdominal girth [...] Plan Joey Huang DO documented in this [facility] Work Phone: [phone]) [phone] Physician Emergency department Note* Sriram Oleary PA-C [...] Abnormality Status --------- ------ Urinalysis with Reflex C...[[id number]] Extra Urine Toney Tube[[id number]] Please view results for these tests on the individual orders. URINALYSIS WITH REFLEX CULTURE AND MICROSCOPIC EXTRA URINE TONEY TUBE PH, BODY FLUID LACTATE DEHYDROGENASE, BODY FLUID Narrative: The following orders were created for panel order Lactate Dehydrogenase, Body Fluid. Procedure Abnormality Status --------- ------ Lactate Dehydrogenase, B...[[id number]] In process Please view results for these tests on the individual orders. GLUCOSE, BODY FLUID Narrative: The following orders were created for panel order Glucose, Body Fluid. Procedure Abnormality Status --------- ------ Glucose, Body Fluid[[id number]] In process Please view results for these tests on the individual orders. PROTEIN, TOTAL, BODY FLUID Narrative: The following orders were created for panel order Protein, Total, Body Fluid. Procedure Abnormality Status --------- ------ Protein, Total, Body Fluid[[id number]] In process Please view results for these tests on the individual orders. BODY FLUID CELL COUNT WITH DIFFERENTIAL Narrative: The following orders were created for panel order Body Fluid Cell Count With Differential. Procedure Abnormality Status --------- ------ Body Fluid Cell Count[[id number]] In process Body Fluid Differential[[id number]] In process Please view results for these tests on the individual orders. ALBUMIN, BODY FLUID Narrative: The following orders were created for panel order Albumin, Body Fluid. Procedure Abnormality Status --------- ------ Albumin, Body Fluid[[id number]] In process Please view results for these [...] Yohana Huang 10/04/2024 2:28 PM Dictation workstation: [id number] Procedures Medical Decision Making Patient is a 59-year-old male with a hx of cirrhosis who presents to the emergency department with a chief complaint of abdominal pain from [facility]. He reports increased abdominal pain [...] cirrhosis type (Multi) Sriram Oleary PA-C 10/04/241736 [facility] Work Phone: 1(113) 572-429503-03-2025 Emergency department Note* Sriram Oleary PA-C - [...] Abnormality Status --------- ------ Urinalysis with Reflex C...[[id number]] Extra Urine Toney Tube[[id number]] Please view results for these tests on the individual orders. URINALYSIS WITH REFLEX CULTURE AND MICROSCOPIC EXTRA URINE TONEY TUBE PH, BODY FLUID LACTATE DEHYDROGENASE, BODY FLUID Narrative: The following orders were created for panel order Lactate Dehydrogenase, Body Fluid. Procedure Abnormality Status --------- ------ Lactate Dehydrogenase, B...[[id number]] In process Please view results for these tests on the individual orders. GLUCOSE, BODY FLUID Narrative: The following orders were created for panel order Glucose, Body Fluid. Procedure Abnormality Status --------- ------ Glucose, Body Fluid[[id number]] In process Please view results for these tests on the individual orders. PROTEIN, TOTAL, BODY FLUID Narrative: The following orders were created for panel order Protein, Total, Body Fluid. Procedure Abnormality Status --------- ------ Protein, Total, Body Fluid[[id number]] In process Please view results for these tests on the individual orders. BODY FLUID CELL COUNT WITH DIFFERENTIAL Narrative: The following orders were created for panel order Body Fluid Cell Count With Differential. Procedure Abnormality Status --------- ------ Body Fluid Cell Count[[id number]] In process Body Fluid Differential[[id number]] In process Please view results for these tests on the individual orders. ALBUMIN, BODY FLUID Narrative: The following orders were created for panel order Albumin, Body Fluid. Procedure Abnormality Status --------- ------ Albumin, Body Fluid[[id number]] In process Please view results for these [...] Yohana Huang 10/04/2024 2:28 PM Dictation workstation: [id number] Procedures Medical Decision Making Patient is a 59-year-old male with a hx of cirrhosis who presents to the emergency department with a chief complaint of abdominal pain from [facility]. He reports increased abdominal pain [...] Sriram Oleary PA-C 10/04/241736 documented in this [facility] Work Phone: 1([phone]) [phone] Evaluation note* Diagnosis Onset Date Resolution Status [...] chronic October 032024 12:43am Acidosis, lactic inactive March 28 th, 2025 12:43am Acute hypotension inactive October 032024 12:43am [...] 2 :16pm Umbilical hernia acute January 2:16pm [facility] Work Phone: 1([phone]) [phone] Procedure note [facility] Medical Records Department [address] [place] [address] Operative Report 09/29/24 1048 MR#: [id number] Acct: [id number] Name: FRANKLIN WIGGINS Rep #:[id number] : 1965 59 From: Jasmine gusman HEADER UP HEADER UP-C PCP: Care Physician,No Primary Status :REG CLI Location: [place] Problems Associated Problem List Diagnoses (1) Abdominal ascites: Multi [facility] Radiology [place] Procedures: 54907 Paracentesis Operative Report (Standard) Operative Information Date of Procedure: 09/29/24 Pre-Operative Diagnosis: Abdominal ascites Post-Operative Diagnosis: Abdominal ascites Surgery/Procedure Performed: Ultrasound-guided paracentesis doormaker: No Type of Anesthesia: Local Procedure Start Time: 09:55 Procedure Stop Time: 10:17 Select all DRAINS/GRAFTS/IMPLANTS that apply: None Estimated Blood Loss: 0 Specimen collected: No Description of surgery: PROCEDURE: Ultrasound guided paracentesis ORDERING PROVIDER: Diane Callahan NP INDICATION: Male, 59 years old. Abdominal ascites. PROVIDER: Jasmine Morocho RN NEW GRAD TECHNIQUE: The risks, benefits, and alternatives to [...] the peritoneal cavity was accessed with a 5-Belarusian paracentesis needle/catheter system. The trocar was removed. [...] No Primary Care Physician; DIANE CALLAHAN~ Signed [facility]02-02-2025 Evaluation note* Diagnosis Onset [...] 2024 12:43am Chronic abdominal pain chronic [facility] 2024 12:43am Chronic back pain chronic [...] 6:06am Fall acute January 02, 2025 6:06am [facility] Work Phone: 1(953) 722-281302-02-2025 Evaluation note* Diagnosis Onset Date Resolution Status [...] 2:16pm Sepsis acute January 09, 2025 2:16pm [facility] Work Phone: 1(392) 840-955001-27-2025 Evaluation note* Diagnosis Onset Date Resolution Status [...] 2024 1:46am Abdominal ascites acute 2024 9:35am [facility] Work Phone: 1(502) 928-934901-27-2025 Evaluation note* Diagnosis Onset Date Resolution Status Admit Date ISABEL (acute kidney injury) inactive August 29, 2024 10:09pm Hepatic encephalopathy inactive [facility] 2024 10:09pm Hypotension inactive August 29, 2024 [...] October 29 12:43am Chronic abdominal pain chronic [facility] 2024 12:43am Chronic back pain chronic October 032024 12:43am [facility] Work Phone: 1(670) 468-251501-27-2025 Evaluation note* Diagnosis Onset Date Resolution Status [...] October 29 12:43am Chronic abdominal pain chronic [facility] 2024 12:43am Chronic back pain chronic October 032024 12:43am [facility] Work Phone: 1(752) 287-702501-27-2025 Evaluation note* Diagnosis Onset Date Resolution Status [...] 2024 12:43am Chronic abdominal pain chronic [facility] 2024 12:43am Chronic back pain chronic [...] 4:28am Staghorn calculus acute November 032024 4:28am [facility] Work Phone: 1(525) 831-578001-27-2025 Evaluation note* Diagnosis Onset Date Resolution Status [...] 2024 12:43am Chronic abdominal pain chronic [facility] 2024 12:43am Chronic back pain chronic [...] infection) resolv ed November 28, 2024 4:51pm [facility] Work Phone: Discharge summary Author Herberth Carlson [facility] Note Date/Time November 21, 2024 4:1 6am [facility] Medical Records Department [address] [place] [address] Emergency Department Summary 11/21/24 MR#: [id number] Acct: [id number] Name: FRANKLIN WIGGINS Rep #:[id number] : [...] discontinue his lactulose. He was recently admitted [facility] for cirrhosis and other issues, he [...] toilet after multiple attempts over couple hours. [facility] Medical History Diarrhea Sepsis Acidosis, lactic [...] (Auto) 68.7 Lymph % (Auto) 13.9 L [place] % (Auto) 9.2 Eos % (Auto) 7.2 [...] Sl Cldy Urine pH 6.0 Ur Specific [place] 1.015 Urine Protein 500 H Urine Glucose [...] process. Follow-up to resolution recommended. Reading Location: [facility] Management Discussion w/another healthcare provider: Hospitalist Discharge [...] Primary [Primary Care Provider] - Print Language: [place] Disposition Disposition: Acute Care Hospital [facility] What to do if you have Problems For any increased pain, shortness of breath, bleeding, nausea or vomiting, chestpain, or any unexpected problems, contact your Primary Care Provider. Call [facility] ([phone]) or report to the closest Emergency Room. Call 911 if necessary. 11/21/24 0416 <Electronically signed by Herberth Carlson MD> Cosigner Signature (if applicable): CC: No Primary Care Physician ~ Signed [facility] Work Phone: Discharge summary Author Mina Blood [facility] Note Date/Time December 30, 2024 5:19a m [facility] Medical Records Department [address] [place] [address] Emergency Department Summary 12/30/24 MR#: [id number] Acct: [id number] Name: FRANKLIN WIGGINS Rep #:[id number] : 1965 59 From: Mina Blood DO PCP: Josy Elias HEADER UP-C Status:REG E R Location: ED HPI History [...] recent trauma prior to the pain beginning. [facility] Medical History Weakness Diarrhea Sepsis Acidosis, [...] (Auto) 69.7 Lymph % (Auto) 14.0 L [place] % (Auto) 9.1 Eos % (Auto) 6.2 [...] Clarity Cloudy Urine pH 6.5 Ur Specific [place] 1.010 Urine Protein 100 H Urine Glucose [...] you have any further concerns Print Language: [place] Korean Disposition Disposition: Home, Self Care What to do if you have Problems For any increased pain, shortness of breath, bleeding, nausea or vomiting, chestpain, or any unexpected problems, contact your Primary Care Provider. Call [facility] ([phone]) or report to the closest Emergency Room. Call 911 if necessary. 12/30/24 0519 <Electronically signed by Mina Blood DO> Cosigner Signature (if applicable): CC: YG Elias ~ Signed [facility] Work Phone: Discharge summary Author Roddy Reeves [facility] Note Date/Time January 02, 2025 6:00a m [facility] Medical Records Department [address] [place] [address] Emergency Department Summary 01/02/25 MR#: [id number] Acct: [id number] Name: FRANKLIN WIGGINS Rep #:[id number] : 1965 59 From: Roddy Reeves DO PCP: Josy Elias HEADER UP-C Status:REG E R Location: ED HPI History [...] was here recently and was sent home. [facility] Medical History Weakness Diarrhea Sepsis Acidosis, [...] (Auto) 68.0 Lymph % (Auto) 12.2 L [place] % (Auto) 11.9 H Eos % (Auto) [...] Clarity Turbid Urine pH 6.0 Ur Specific [place] 1.015 Urine Protein 100 H Urine Glucose [...] insufficiency fracture again noted, unchanged. Reading Location: [id number] Brain CT 01/02/25 03:55 IMPRESSION: No intracranial [...] NP-C [Primary Care Provider] - Print Language: [place] Disposition Disposition: Acute Care Hospital [facility] What to do if you have Problems For any increased pain, shortness of breath, bleeding, nausea or vomiting, chestpain, or any unexpected problems, contact your Primary Care Provider. Call [facility] ([phone]) or report to the closest Emergency Room. Call 911 if necessary. 01/02/25 0600 <Electronically signed by Roddy Reeves DO> Cosigner Signature (if applicable): CC: YG Elias ~ Signed [facility] Work Phone: Discharge summary Author Mina Blood [facility] Note Date/Time February 08, 2025 3:03a m [facility] Medical Records Department [address] [place] [address] Emergency Department Summary 02/08/25 MR#: [id number] Acct: [id number] Name: FRANKLIN WIGGINS Rep #:[id number] : [...] bouts of constipation fevers chills or dysuria. [facility] Medical History (Updated 02/08/25 @ 03:03 [...] surgery as fat necrosis is a nonemergent wyi-hlnq-drbvauyaark process. The patient will be given pain [...] 72.8 H Lymph % (Auto) 12.8 L [place] % (Auto) 8.1 Eos % (Auto) 5.4 [...] double-J stent in place. Anasarca. Reading Location: [place] [address] Discharge Plan Triage Chief Complaint: Abd Pain [...] Ambulatory Orders: Paracentesis with US (Routine) Facility: [facility] - Location: [facility] Ordered By: Dr. Mina Blood Primary [...] you have any further concerns. Print Language: [place] Korean Disposition Disposition: Home, Self Care What to do if you have Problems For any increased pain, shortness of breath, bleeding, nausea or vomiting, chestpain, or any unexpected problems, contact your Primary Care Provider. Call [facility] ([phone]) or report to the closest Emergency Room. Call 911 if necessary. 02/08/25 0303 <Electronically signed by Mina Blood DO> Cosigner Signature (if applicable): CC: Dr. Jerald Sherwood MD ~ Signed [facility] Work Phone: Evaluation note* Diagnosis Other ascites- Primary Abdominal pain, generalized Cirrhosis of liver with ascites, unspecified hepatic cirrhosis type (Multi) Peripheral edema Edema Coagulopathy (Multi) Other and unspecified coagulation defects Hyperbilirubinemia Disorders of bilirubin excretion documented in this encounter [facility] Work Phone: Evaluation note* Diagnosis Metabolic dysfunction-associated steatohepatitis (MASH)- Primary [facility] Diagnosis Liver transplant candidate- Primary Metabolic dysfunction-associated steatohepatitis (MASH) [facility] Pre-transplant evaluation for liver transplant- Primary [facility] Diagnosis Liver transplant candidate- Primary Pre-operative clearance Preoperative examination, unspecified [facility] Diagnosis Screening for genitourinary condition Screening for other and unspecified genitourinary condition [facility] Buster Fuchs [facility] Note Date/Time January 02, 2025 6:44a m [facility] Medical Records Department [address] [place] [address] H&P Exam - Hospitalist 01/02/25 0556 MR#: [id number] Acct: [id number] Name: FRANKLIN WIGGINS Rep #:[id number] : 1965 59 From: Buster duarte MD PCP: BRITTANY PenaC Status:ADM I N Location: [address] HPI - General General Date [...] At that time he was transferred to [facility] 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 Was not considered to be a liver transplant candidate and was placed on anticoagulation. He has had a couple of readmissions for weakness and debility. [place] to possibly have aUTI given a staghorn [...] Heis receiving potassium infusion in the ER. [facility] Medical History Weakness Diarrhea Sepsis [...] (Auto) 68.0, Lymph % (Auto) 12.2 L, [place] % (Auto) 11.9 H, Eos % (Auto) [...] once verified Charges/Coding Visit Charges Inpatient E&M: 03429 Init Hosp L2 01/02/25 0644 <Electronically signed by Buster Fuchs MD> Cosigner Signature (if applicable): CC: YG Elias; Dr. Buster Fuchs MD~ Signed [facility] Work Phone: Hospital Discharge instructions* Attachments The following attachments cannot be sent through Care Everywhere. * Cirrhosis (South Korean) * Abdominal pain (South Korean) documented in this [facility] Work Phone: Hospital Discharge instructions [...] the ER should you have any further concerns.[facility] Work Phone: Hospital Discharge instructionsAdditional Instructions Thank you for trusting us with your care today! Please take Tylenol (2 pills, 650 mg), ibuprofen (2 pills, 400 mg) every 6 hours as needed for pain and fever control. Please return to the emergency department if your symptoms change or worsen. Please follow with your primary care physician for further outpatient evaluation and management.[facility] Work Phone: Hospital Discharge instructionsAdditional Instructions Take your short acting insulin and long-acting insulin as home as prescribed, you may need to give additional units if it continues to run high. Contact your hospice group.[facility] Work Phone: Reason for referral (narrative)No reason for referral information availableWooPremier [facility] Work Phone: Summary Purpose Family [...] Will No August 21 2:51pm Power of Offline Editor No August 21, 2024 2:51pm Living Will No August 30 12:39am Power of Offline Editor No August 30, 2024 12:39am Living Will No September 05 4:42am Power of Offline Editor No September 05, 2024 4:42am Advance Directive Response Recorded Date/ Time Living Will No August 21 2:51pm Do you have a Healthcare Power of Offline Editor? No August 21, 2024 2:51pm Living Will No August 30 12:39am Do you have a Healthcare Power of Offline Editor? No August 30, 2024 12:39am Living Will No September 05 4:42am Do you have a Healthcare Power of Offline Editor? No September 05, 2024 4:42am Living Will No October 28, 2024 5:24pm Do you have a Healthcare Power of Offline Editor? No October 28, 2024 5:24pm Advance Directive Response Recorded Date/ Time Living Will No August 21 2:51pm Do you have a Healthcare Power of Offline Editor? No August 21, 2024 2:51pm Living Will No August 30 12:39am Do you have a Healthcare Power of Offline Editor? No August 30, 2024 12:39am Living Will No September 05 4:42am Do you have a Healthcare Power of Offline Editor? No September 05, 2024 4:42am Living Will No October 29, 2024 1:46am Do you have a Healthcare Power of Offline Editor? No October 29, 2024 1:46am Date Activated Date Inactivated Comments 11/11/2024 7:22 AM Question Answer Comments Full Code Order Discussed With: Patient Date Activated Date Inactivated Comments 11/11/2024 7:22 AM Advance Directive Response Recorded Date/ Time Living Will No August 21 2:51pm Do you have a Healthcare Power of Offline Editor? No August 21, 2024 2:51pm Living Will No August 30 12:39am Do you have a Healthcare Power of Offline Editor? No August 30, 2024 12:39am Living Will No September 05 4:42am Do you have a Healthcare Power of Offline Editor? No September 05, 2024 4:42am Living Will No October 29, 2024 1:46am Do you have a Healthcare Power of Offline Editor? No October 29, 2024 1:46am Living Will Yes November 21, 2024 1:32am Do you have a Healthcare Power of Offline Editor? Yes November 21, 2024 1:32am Name of Medical Power of Offline Editor anne Hernandez November 21, 2024 1:32am Advance Directive Response Recorded Date/ Time Living Will No August 21 2:51pm Do you have a Healthcare Power of Offline Editor? No August 21, 2024 2:51pm Living Will No August 30 12:39am Do you have a Healthcare Power of Offline Editor? No August 30, 2024 12:39am Living Will No September 05 4:42am Do you have a Healthcare Power of Offline Editor? No September 05, 2024 4:42am Living Will No October 29, 2024 1:46am Do you have a Healthcare Power of Offline Editor? No October 29, 2024 1:46am Living Will Yes November 21, 2024 5:32am Do you have a Healthcare Power of Offline Editor? Yes November 21, 2024 5:32am Name of Medical Power of Offline Editor anne Hernandez November 21, 2024 5:32am Do you have a Healthcare Power of Offline Editor? No November 28, 2024 5:49pm Advance Directive Response Recorded Date/ Time Living Will No August 30 12:39am Do you have a Healthcare Power of Offline Editor? No August 30, 2024 12:39am Living Will No September 05 4:42am Do you have a Healthcare Power of Offline Editor? No September 05, 2024 4:42am Living Will No October 29, 2024 1:46am Do you have a Healthcare Power of Offline Editor? No October 29, 2024 1:46am Living Will Yes November 21, 2024 5:32am Do you have a Healthcare Power of Offline Editor? Yes November 21, 2024 5:32am Name of Medical Power of Offline Editor anne Hernandez November 21, 2024 5:32am Do you have a Healthcare Power of Offline Editor? No November 28, 2024 5:49pm Advance Directive Response Recorded Date/ Time Living Will No August 30 12:39am Do you have a Healthcare Power of Offline Editor? No August 30, 2024 12:39am Living Will No September 05 4:42am Do you have a Healthcare Power of Offline Editor? No September 05, 2024 4:42am Living Will No October 29, 2024 1:46am Do you have a Healthcare Power of Offline Editor? No October 29, 2024 1:46am Living Will Yes November 21, 2024 5:32am Do you have a Healthcare Power of Offline Editor? Yes November 21, 2024 5:32am Name of Medical Power of Offline Editor anne Hernandez November 21, 2024 5:32am Do you have a Healthcare Power of Offline Editor? No November 28, 2024 5:49pm Do you have a Healthcare Power of Offline Editor? No December 26, 2024 10:02am Advance Directive Response Recorded Date/ Time Living Will No August 30 12:39am Do you have a Healthcare Power of Offline Editor? No August 30, 2024 12:39am Living Will No September 05 4:42am Do you have a Healthcare Power of Offline Editor? No September 05, 2024 4:42am Living Will No October 29, 2024 1:46am Do you have a Healthcare Power of Offline Editor? No October 29, 2024 1:46am Living Will Yes November 21, 2024 5:32am Do you have a Healthcare Power of Offline Editor? Yes November 21, 2024 5:32am Name of Medical Power of Offline Editor anne Hernandez November 21, 2024 5:32am Do you have a Healthcare Power of Offline Editor? No November 28, 2024 5:49pm Do you have a Healthcare Power of Offline Editor? No December 26, 2024 10:02am Do you have a Healthcare Power of Offline Editor? No December 30, 2024 1:06am Advance Directive Response Recorded Date/ Time Do you have a Healthcare Power of Offline Editor? No January 02, 2025 2:59am Living Will No September 05 4:42am Do you have a Healthcare Power of Offline Editor? No September 05, 2024 4:42am Living Will No October 29, 2024 1:46am Do you have a Healthcare Power of Offline Editor? No October 29, 2024 1:46am Living Will Yes November 21, 2024 5:32am Do you have a Healthcare Power of Offline Editor? Yes November 21, 2024 5:32am Name of Medical Power of Offline Editor anne Hernandez November 21, 2024 5:32am Do you have a Healthcare Power of Offline Editor? No November 28, 2024 5:49pm Do you have a Healthcare Power of Offline Editor? No December 26, 2024 10:02am Do you have a Healthcare Power of Offline Editor? No December 30, 2024 1:06am Advance Directive Response Recorded Date/ Time Do you have a Healthcare Power of Offline Editor? No January 02, 2025 8:14am Living Will No September 05 4:42am Do you have a Healthcare Power of Offline Editor? No September 05, 2024 4:42am Living Will No October 29, 2024 1:46am Do you have a Healthcare Power of Offline Editor? No October 29, 2024 1:46am Living Will Yes November 21, 2024 5:32am Do you have a Healthcare Power of Offline Editor? Yes November 21, 2024 5:32am Name of Medical Power of Offline Editor anne Hernandez November 21, 2024 5:32am Do you have a Healthcare Power of Offline Editor? No November 28, 2024 5:49pm Do you have a Healthcare Power of Offline Editor? No December 26, 2024 10:02am Do you have a Healthcare Power of Offline Editor? No December 30, 2024 1:06am Advance Directive Response Recorded Date/ Time Do you have a Healthcare Power of Offline Editor? No January 02, 2025 8:14am Living Will No September 05 4:42am Do you have a Healthcare Power of Offline Editor? No September 05, 2024 4:42am Living Will No October 29, 2024 1:46am Do you have a Healthcare Power of Offline Editor? No October 29, 2024 1:46am Living Will Yes November 21, 2024 5:32am Do you have a Healthcare Power of Offline Editor? Yes November 21, 2024 5:32am Name of Medical Power of Offline Editor anne Hernandez November 21, 2024 5:32am Do you have a Healthcare Power of Offline Editor? No November 28, 2024 5:49pm Do you have a Healthcare Power of Offline Editor? No December 26, 2024 10:02am Do you have a Healthcare Power of Offline Editor? No December 30, 2024 1:06am Do you have a Healthcare Power of Offline Editor? No January 09, 2025 10:10am Advance Directive Response Recorded Date/ Time Do you have a Healthcare Power of Offline Editor? No January 02, 2025 8:14am Living Will No October 29, 2024 1:46am Do you have a Healthcare Power of Offline Editor? No October 29, 2024 1:46am Living Will Yes November 21, 2024 5:32am Do you have a Healthcare Power of Offline Editor? Yes November 21, 2024 5:32am Name of Medical Power of Offline Editor anne Hernandez November 21, 2024 5:32am Do you have a Healthcare Power of Offline Editor? No November 28, 2024 5:49pm Do you have a Healthcare Power of Offline Editor? No December 26, 2024 10:02am Do you have a Healthcare Power of Offline Editor? No December 30, 2024 1:06am Do you have a Healthcare Power of Offline Editor? No January 09, 2025 3:31pm Advance Directive Response Recorded Date/ Time Do you have a Healthcare Power of Offline Editor? No January 02, 2025 8:14am Do you have a Healthcare Power of Offline Editor? No January 28, 2025 3:02am Living Will No October 29, 2024 1:46am Do you have a Healthcare Power of Offline Editor? No October 29, 2024 1:46am Living Will Yes November 21, 2024 5:32am Do you have a Healthcare Power of Offline Editor? Yes November 21, 2024 5:32am Name of Medical Power of Offline Editor anne Hernandez November 21, 2024 5:32am Do you have a Healthcare Power of Offline Editor? No November 28, 2024 5:49pm Do you have a Healthcare Power of Offline Editor? No December 26, 2024 10:02am Do you have a Healthcare Power of Offline Editor? No December 30, 2024 1:06am Do you have a Healthcare Power of Offline Editor? No January 09, 2025 3:31pm Advance Directive Response Recorded Date/ Time Do you have a Healthcare Power of Offline Editor? No January 02, 2025 8:14am Do you have a Healthcare Power of Offline Editor? No January 28, 2025 3:02am Living Will No October 29, 2024 1:46am Do you have a Healthcare Power of Offline Editor? No October 29, 2024 1:46am Living Will Yes November 21, 2024 5:32am Do you have a Healthcare Power of Offline Editor? Yes November 21, 2024 5:32am Name of Medical Power of Offline Editor anne Hernandez November 21, 2024 5:32am Do you have a Healthcare Power of Offline Editor? No November 28, 2024 5:49pm Do you have a Healthcare Power of Offline Editor? No December 26, 2024 10:02am Do you have a Healthcare Power of Offline Editor? No December 30, 2024 1:06am Do you have a Healthcare Power of Offline Editor? No January 09, 2025 3:31pm Do you have a Healthcare Power of Offline Editor? No February 07, 2025 10:20pm Advance Directive Response Recorded Date/ Time Do you have a Healthcare Power of Offline Editor? No January 02, 2025 8:14am Do you have a Healthcare Power of Offline Editor? No January 28, 2025 3:02am Living Will No October 29, 2024 1:46am Do you have a Healthcare Power of Offline Editor? No October 29, 2024 1:46am Living Will Yes November 21, 2024 5:32am Do you have a Healthcare Power of Offline Editor? Yes November 21, 2024 5:32am Name of Medical Power of Offline Editor anne Hernandez November 21, 2024 5:32am Do you have a Healthcare Power of Offline Editor? No November 28, 2024 5:49pm Do you have a Healthcare Power of Offline Editor? No December 26, 2024 10:02am Do you have a Healthcare Power of Offline Editor? No December 30, 2024 1:06am Do you have a Healthcare Power of Offline Editor? No January 09, 2025 3:31pm Do you have a Healthcare Power of Offline Editor? No February 07, 2025 10:20pm Do you have a Healthcare Power of Offline Editor? No February 13, 2025 4:40pm Advance Directive Response Recorded Date/ Time Do you have a Healthcare Power of Offline Editor? No January 02, 2025 8:14am Do you have a Healthcare Power of Offline Editor? No January 28, 2025 3:02am Living Will No October 29, 2024 1:46am Do you have a Healthcare Power of Offline Editor? No October 29, 2024 1:46am Living Will Yes November 21, 2024 5:32am Do you have a Healthcare Power of Offline Editor? Yes November 21, 2024 5:32am Name of Medical Power of Offline Editor Mary héctorgabrielle November 21, 2024 5:32am Do you have a Healthcare Power of Offline Editor? No November 28, 2024 5:49pm Do you have a Healthcare Power of Offline Editor? No December 26, 2024 10:02am Do you have a Healthcare Power of Offline Editor? No December 30, 2024 1:06am Do you have a Healthcare Power of Offline Editor? No January 09, 2025 3:31pm Do you have a Healthcare Power of Offline Editor? No February 07, 2025 10:20pm Do you have a Healthcare Power of Offline Editor? No February 13, 2025 4:40pm Do you have a Healthcare Power of Offline Editor? No February 16, 2025 6:30pm Advance Directive Response Recorded Date/ Time Do you have a Healthcare Power of Offline Editor? No January 02, 2025 8:14am Do you have a Healthcare Power of Offline Editor? No January 28, 2025 3:02am Living Will No October 29, 2024 1:46am Do you have a Healthcare Power of Offline Editor? No October 29, 2024 1:46am Living Will Yes November 21, 2024 5:32am Do you have a Healthcare Power of Offline Editor? Yes November 21, 2024 5:32am Name of Medical Power of Offline Editor Maryanne ram November 21, 2024 5:32am Do you have a Healthcare Power of Offline Editor? No November 28, 2024 5:49pm Do you have a Healthcare Power of Offline Editor? No December 26, 2024 10:02am Do you have a Healthcare Power of Offline Editor? No December 30, 2024 1:06am Do you have a Healthcare Power of Offline Editor? No January 09, 2025 3:31pm Do you have a Healthcare Power of Offline Editor? No February 07, 2025 10:20pm Do you have a Healthcare Power of Offline Editor? No February 13, 2025 4:40pm Do you have a Healthcare Power of Offline Editor? No February 16, 2025 7:47pm Advance Directive Response Recorded Date/ Time Do you have a Healthcare Power of Offline Editor? No January 02, 2025 8:14am Do you have a Healthcare Power of Offline Editor? No January 28, 2025 3:02am Do you have a Healthcare Power of Offline Editor? No February 25, 2025 5:00pm Living Will No October 29, 2024 1:46am Do you have a Healthcare Power of Offline Editor? No October 29, 2024 1:46am Living Will Yes November 21, 2024 5:32am Do you have a Healthcare Power of Offline Editor? Yes November 21, 2024 5:32am Name of Medical Power of Offline Editor anne Hernandez November 21, 2024 5:32am Do you have a Healthcare Power of Offline Editor? No November 28, 2024 5:49pm Do you have a Healthcare Power of Offline Editor? No December 26, 2024 10:02am Do you have a Healthcare Power of Offline Editor? No December 30, 2024 1:06am Do you have a Healthcare Power of Offline Editor? No January 09, 2025 3:31pm Do you have a Healthcare Power of Offline Editor? No February 07, 2025 10:20pm Do you have a Healthcare Power of Offline Editor? No February 13, 2025 4:40pm Do you have a Healthcare Power of Offline Editor? No February 16, 2025 7:47pm Do you have a Healthcare Power of Offline Editor? No March 11, 2025 5:16pm Advance Directive Response Recorded Date/ Time Do you have a Healthcare Power of Offline Editor? No January 02, 2025 8:14am Do you have a Healthcare Power of Offline Editor? No January 28, 2025 3:02am Do you have a Healthcare Power of Offline Editor? No February 25, 2025 5:00pm Do you have a Healthcare Power of Offline Editor? No April 03, 2025 8:27pm Do you have a Healthcare Power of Offline Editor? No December 26, 2024 10:02am Do you have a Healthcare Power of Offline Editor? No December 30, 2024 1:06am Do you have a Healthcare Power of Offline Editor? No Georgina 8th, 2025 3:31pm Do you have a Healthcare Power of Offline Editor? No February 07, 2025 10:20pm Do you have a Healthcare Power of Offline Editor? No February 13, 2025 4:40pm Do you have a Healthcare Power of Offline Editor? No February 16, 2025 7:47pm Do you have a Healthcare Power of Offline Editor? No March 10, 2025 8:43am Do you have a Healthcare Power of Offline Editor? No March 11, 2025 5:16pm Do you have a Healthcare Power of Offline Editor? No April 07, 2025 7:00pm Chief Complaint and Reason for Visit Chief [...] h2024 5:04pm SEPSIS WITH STAGHORN CALCULI September 6 [...] September 05, 2024 1 :46am Metabolic encephalopathy February 2nd, 2 025 1:46am ISABEL (acute kidney injury) September [...] History of uric acid staghorn calculus [facility] 2024 12:43am Hyponatremia October 29, 2024 [...] h2024 12:41pm SEPSIS WITH STAGHORN CALCULI September 72024 4:50pm SEPSIS WITH STAGHORN CALCULI September 82024 10:36am SEPSIS WITH STAGHORN CALCULI September 9 [...] weakness November 23, 2024 4: 19pm Hematuria Latanya 22nd, 2025 4:1 9pm Hepatic cirrhosis November 23, 2024 [...] Date SEPSIS, UTI, DIARRHEA & ABDOMINAL PAIN [facility] 2024 12:43am SEPSIS, UTI, DIARRHEA & ABDOMINAL PAIN [facility] 2024 7:44am SEPSIS, UTI, DIARRHEA & ABDOMINAL PAIN [facility] 2024 8:20am SEPSIS, UTI, DIARRHEA & ABDOMINAL PAIN [facility] 2024 8:48pm SEPSIS, UTI, DIARRHEA & ABDOMINAL PAIN [facility] 2024 9:52am SEPSIS, UTI, DIARRHEA & ABDOMINAL PAIN [facility] 2024 8:36am SEPSIS, UTI, DIARRHEA & ABDOMINAL PAIN [facility] 2024 11:28am SEPSIS, UTI, DIARRHEA & [...] & ABDOMINAL PAIN [facility] 2024 12:43am Weakness November 21, 2024 4:2 [...] Hepatic cirrhosis March 10, 2025 1:5 2pm Chief Complaint Admit Date ABD PAIN December 15, 2024 10:07 am [...] 2pm Hyperglycemia March 11, 2025 5:0 5pm WOUND April 03, 2025 8: 13pm GEN ILL April 07, 2025 9:20pm HEPATIC ENCEPHALOPATHY April 07 11:18pm Reason for Visit Admit Date Acute kidney injury January 02, 2025 6:06a [...] Hepatic cirrhosis March 10, 2025 1:5 2pm Hepatic encephalopathy April 07 11:18pm Additional Source Comments Reason for Visit (unrecogniz ed section and content) Reason Comments Dental Clearance - Transplant Liver Specialty Diagnoses / Procedures Referred By Ginny alex Referred To Contact HOSP INPATIENT Diagnoses 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) Portal vein thrombosis Thrombus Procedures Evaluate and treat [facility] [id number] [place] [address] Phone: tel: Referral ID Status Reason Start Date Expiration Date Visits Re quested Visits Authorized [id number] 1 1 Reason Comments Abdominal Pain Patient [...] 2024 End: November 11, 2024 Yue Delgadillo HEADER UP, HEADER UP-C Other Provider Active St art: October 29, [...] Active Start: October 30, 2024 Dr. John Pual Masterson MD Other Provider Active Start: October [...] Provider Active Start: November 06, 2024 Dr. Hlil Caro DO Other Provider Active Start: November [...] Sta rt: November 10, 2024 Yue Delgadillo HEADER UP, HEADER UP-C Other Provider Active St art: November 10, [...] Pena Primary Care Provider Active Start: December 15, 2024 End: December 15, 2024 Josy Elias , HEADER UP-C Attending Provider Active Start: December 15, 2024 End: December 15, 2024 Josy Elias , HEADER UP-C Referring Provider Active Start: December 15, 2024 End: December 15, 2024 Team Status: Inactive Member Role Status Dates Josydominique Elias , HEADER UP-C Primary Care Provider Active Start: December 26, 2024 End: December 26, 2024 Dr. Boone Carvajal , Attending Provider Active Start: December 26, 2024 End: December 26, 2024 Dr. Boone Carvajal , DO Emergency Provider Active Start: December 26, 2024 End: December 26, 2024 Team Status: Inactive Member Role Status Dates Josy Elias , HEADER UP-C Primary Care Provider Active Start: December 30, 2024 End: December 30, 2024 Dr. Mina Blood , Attending Provider Active Start: December 30, 2024 End: December 30, 2024 Dr. Mina Blood DO Emergency Provider Active Start: December 30, 2024 End: December 30, 2024 Team Status: Inactive Member Role Status Dates Josy Elias , HEADER UP-C Primary Care Provider Active Start: January 02, [...] Member Role Status Dates Josy Elias , HEADER UP-C Primary Care Provider Active Start: January 03, [...] NP-[place] Primary Care Provider Active Start: January 11, [...] Active Member Role Status Dates Josy Elias HEADER UP-C Primary Care Provider Active Start: January 11, [...] Active Member Role Status Dates Josy Elias HEADER UP-C Primary Care Provider Active Start: January 12, [...] Active Member Role Status Dates Josy Elias HEADER UP-C Primary Care Provider Active Start: January 13, [...] Active Member Role Status Dates Josy Elias HEADER UP-C Primary Care Provider Active Start: January 14, 2025 Dr. Breann Mendez DO Emergency Provider Active S tart: January 14, 2025 Dr. Yaritza Leo DO Admit Provider Active Start : January 14, 2025 Dr. Yaritza Leo DO Other Provider Active Start : January 14, 2025 Dr. Cielo Tovar MD Attending Provider Active Start: January 14, 2025 Dr. Cielo oTvar MD Other Provider Active St art: January 14, 2025 Dr. Jefferson Malave MD Other Provider Active St art: January 14, 2025 Dr. Aleyda Bautista MD Other Provider Active Star t: January 14, 2025 Team Status: Active Member Role Status Dates Josy Elias HEADER UP-C Primary Care Provider Active Start: January 15, 2025 Dr. Breann Mendez DO Emergency Provider Active S tart: January 15, 2025 Dr. Yaritza Leo DO Admit Provider Active Start : January 15, 2025 Dr. Yaritza Leo DO Other Provider Active Start : January 15, 2025 Dr. iCelo Tovar MD Attending Provider Active Start: January [...] Active Member Role Status Dates Josy Elias HEADER UP-C Primary Care Provider Active Start: January 17, 2025 Dr. Breann Mendez DO Emergency Provider Active S tart: January 17, 2025 Dr. Yaritza Leo , Admit Provider Active Start : January 17, [...] PenaC Primary Care Provider Active Start: January 18, [...] PenaC Primary Care Provider Active Start: January 19, [...] Active Member Role Status Dates Josy Elias HEADER UP-C Primary Care Provider Active Start: January 20, [...] Start: January 28, 2025 Dr. Boone Izquierdo , Admit Provider [...] Active Star t: August 31, 2024 Dr. Maosn Samano DO Other Provider Active St art: [...] Provider Active Start: September 09, 2024 Dr. Anuarg Irene MD Other Provider Active Sta rt: [...] Provider Active Start: September 13, 2024 Dr. Fsoter Rascon MD Other Provider Active Start: September [...] Other Provider Active Start: 2024 Jasmine Morocho HEADER UP, HEADER UP-C Attending Provider Active Start: September 29, 2024 Cone Worker Relationship Specialty Start Date End Date Maurice Rincon MD [address] [place] [address] PCP - General Internal Medicine 09/21/24 Team [...] November 01, 2024 Dr. Hill Caro , DO Admit Provider Active Start: November 01, [...] Inactive Member Role Status Dates Josy Elias HEADER UP-C Primary Care Provider Active Start: December 26, 2024 End: December 26, 2024 Dr. Boone Carvajal , Emergency Provider Active Start: December 26, 2024 End: December 26, 2024 Team Status: Inactive Member Role Status Dates Josy Elias HEADER UP-C Primary Care Provider Active Start: December 30, 2024 End: December 30, 2024 Dr. Mina Blood , Emergency Provider Active Start: December 30, 2024 End: December 30, 2024 Team Status: Active Member Role Status Dates Josy Elias HEADER UP-C Primary Care Provider Active Start: January 02, 2025 Dr. Roddy Reeves , Emergency Provider Active Start: January 02, 2025 Dr. Buster Fuchs MD Admit Provider Active Start: January 02, 2025 Dr. Buster Fuchs MD Attending Provider Active Start: January 02, 2025 Dr. Buster Fuchs MD Other Provider Active Start: January 02, 2025 Team Status: Active Member Role Status Dates Josy Elias HEADER UP-C Primary Care Provider Active Start: January 09, 2025 Dr. Breann Mendez , Emergency Provider Active S tart: January 09, 2025 DrElizabeth Leo DO Admit Provider Active Start : [...] Status: Active Member Role/Relationship Status Dates Dr. Jeradl Sherwood MD Primary Care Provider Active Team [...] 2024 End: November 11, 2024 Yue Delgadillo HEADER UP, HEADER UP-C Other Provider Active St art: October 29, [...] Sta rt: November 10, 2024 Yue Delgadillo HEADER UP, HEADER UP-C Other Provider Active St art: November 10, 2024 Team Status: Active Member Role/Relationship Status Dates No Primary Care Physician Primary Care Provider Active Start: November 21, 2024 Dr. Herberth Carlson MD Emergency Provider Active Start: November 21, 2024 Dr. Jae Mosteller , DO Admit [...] BRITTANY PenaC Primary Care Provider Active Start: December 07, 2024 End: December 07, 2024 YG Pena Attending Provider Active Start: December 07, 2024 End: December 07, 2024 Team Status: Inactive Member Role/Relationship Status Dates BRITTANY PenaC Primary Care Provider Active Start: December 15, 2024 End: December 15, 2024 YG Pena Attending Provider Active Start: December 15, 2024 End: December 15, 2024 YG Pena Referring Provider Active Start: December 15, 2024 End: December 15, 2024 Team Status: Inactive Member Role/Relationship Status Dates Josydominique Elias , HEADER UP-C Primary Care Provider Active Start: December 26, 2024 End: December 26, 2024 Dr. Boone Carvajal DO Attending Provider Active Start: December 26, 2024 End: December 26, 2024 Dr. Boone Carvajal DO Emergency Provider Active Start: December 26, 2024 End: December 26, 2024 Team Status: Inactive Member Role/Relationship Status Dates Josydominique Baumannhof , HEADER UP-C Primary Care Provider Active Start: December 30, 2024 End: December 30, 2024 Dr. Mina Blood DO Attending Provider Active Start: December 30, 2024 End: December 30, 2024 Dr. Mina Blood DO Emergency Provider Active Start: December 30, 2024 End: December 30, 2024 Team Status: Inactive Member Role/Relationship Status Dates Josydominique Baumannhof , HEADER UP-C Primary Care Provider Active Start: January 02, [...] Member Role/Relationship Status Dates Josydominique Elias , HEADER UP-C Primary Care Provider Active Start: January 03, [...] Member Role/Relationship Status Dates Josydominique Baumannhof , HEADER UP-C Primary Care Provider Active Start: January 04, [...] Active Member Role/Relationship Status Dates Josy Elias HEADER UP-C Primary Care Provider Active Start: January 05, [...] Team Status: Inactive Member Role/Relationship Status Dates Jsoy Elias HEADER UP-C Primary Care Provider Active Start: January 09, [...] Active Member Role/Relationship Status Dates Josy Elias HEADER UP-C Primary Care Provider Active Start: January 10, [...] Active Member Role/Relationship Status Dates Josy Elias HEADER UP-C Primary Care Provider Active Start: January 10, [...] Active Member Role/Relationship Status Dates Josy Elias HEADER UP-C Primary Care Provider Active Start: January 11, [...] Active Member Role/Relationship Status Dates Josy Elias HEADER UP-C Primary Care Provider Active Start: January 12, [...] Active Member Role/Relationship Status Dates Josy Elias HEADER UP-C Primary Care Provider Active Start: January 14, [...] Pena Primary Care Provider Active Start: January 20, 2025 Dr. Breann Mendez DO Emergency Provider Active S tart: January 20, 2025 Dr. Yaritza Leo , Admit Provider Active Start : January 20, [...] 31, 2025 Dr. Boone Izquierdo , DO Other [...] January 29, 2025 Dr. Boone Izquierdo , Admit Provider Active Star t: January 29, [...] Josy Elias NP-C Primary Care Provider Active Team Status: Inactive [...] 2024 End: November 11, 2024 Yue Delgadillo HEADER UP, HEADER UP-C Other Provider Active St art: October 29, [...] 2024 End: December 02, 2024 Dr. Hill cAuña MD Attending Provider Active Start: November 28, [...] NP-C Primary Care Provider Active Start: December 07, 2024 End: December 07, 2024 BRITTANY PenaC Attending Provider Active Start: December 07, 2024 End: December 07, 2024 Team Status: Inactive Member Role/Relationship Status Dates Josy Elias NP-C Primary Care Provider Active Start: December 15, 2024 End: December 15, 2024 Josy Tannhof , HEADER UP-C Attending Provider Active Start: December 15, 2024 End: December 15, 2024 Josy Elias HEADER UP-C Referring Provider Active Start: December 15, 2024 End: December 15, 2024 Team Status: Inactive Member Role/Relationship Status Dates Josy Elias , HEADER UP-C Primary Care Provider Active Start: December 26, 2024 End: December 26, 2024 Dr. Boone Carvajal , Attending Provider Active Start: December 26, 2024 End: December 26, 2024 Dr. Boone Carvajal , DO Emergency Provider Active Start: December 26, 2024 End: December 26, 2024 Team Status: Inactive Member Role/Relationship Status Dates Josy Elias HEADER UP-C Primary Care Provider Active Start: December 30, 2024 End: December 30, 2024 Dr. Mina Blood , Attending Provider Active Start: December 30, 2024 End: December 30, 2024 Dr. Mina Blood DO Emergency Provider Active Start: December 30, 2024 End: December 30, 2024 Team Status: Inactive Member Role/Relationship Status Dates Josy Elias , HEADER UP-C Primary Care Provider Active Start: January 02, [...] Active Member Role/Relationship Status Dates Josy Elias HEADER UP-C Primary Care Provider Active Start: January 03, [...] Status: Active Member Role/Relationship Status Dates BRITTANY PenaPastora Primary Care Provider Active Start: January 10, [...] Active Member Role/Relationship Status Dates Josy Elias HEADER UP-C Primary Care Provider Active Start: January 10, [...] Sta rt: January 10, 2025 Dr. Cielo oTvar MD Attending Provider Active Start: January 10, 2025 Dr. Cielo Tovar MD Other Provider Active St art: January 10, 2025 Team Status: Active Member Role/Relationship Status Dates Josy Elias NP-[place] Primary Care Provider Active Start: January 11, [...] Active Member Role/Relationship Status Dates Josy Elias HEADER UP-C Primary Care Provider Active Start: January 11, [...] Active Member Role/Relationship Status Dates Josy Elias HEADER UP-C Primary Care Provider Active Start: January 12, [...] Active Member Role/Relationship Status Dates Josy Elias HEADER UP-C Primary Care Provider Active Start: January 13, [...] Active Member Role/Relationship Status Dates Josy Elias HEADER UP-C Primary Care Provider Active Start: January 14, [...] Active Member Role/Relationship Status Dates Josy Elias HEADER UP-C Primary Care Provider Active Start: January 20, [...] Provider Active Start: January 20, 2025 Dr. Anruag Irene MD Other Provider [...] January 30, 2025 Dr. Yaritza Leo , Other Provider Active Start : January 30, [...] End: February 17, 2025 Dr. Jae Ash , DO Admit Provider Active Start: February 16, 2025 End: February 17, 2025 Dr. Jae Ash , DO Other Provider Active Start: February 16, 2025 End: February 17, 2025 Dr. Niranjan Li , [...] Active Sta rt: February 17, 2025 Josy Tannhof , HEADER UP-C Primary Care Provider Active Start: February 17, 2025 Team Status: Inactive Member Role/Relationship Status Dates Josy Elias , HEADER UP-C Primary Care Provider Active Start: February 24, 2025 End: February 25, 2025 Julita Glover Attending Provider Active Sta rt: February 24, 2025 End: February 25, 2025 Josy Elias , HEADER UP-C Referring Provider Active Start: February 24, 2025 End: February 25, 2025 Josy Elias HEADER UP-C Other Provider Active Star t: February 24, 2025 End: February 25, 2025 Team Status: Active Member Role/Relationship Status Dates Josy Elias HEADER UP-C Primary Care Provider Active Start: February 25, 2025 Dr. Herberth Carlson MD Emergency Provider Active Start: February 25, 2025 Dr. Kathie Powers MD Attending Provider Active Start: February 25, 2025 Team Status: Inactive Member Role/Relationship Status Dates Josy Elias HEADER UP-C Primary Care Provider Active Start: February 25, [...] Active Member Role/Relationship Status Dates Josy Elias HEADER UP-C Primary Care Provider Active Start: February 25, [...] Member Role/Relationship Status Dates Josy Elias , HEADER UP-C Primary Care Provider Active Start: February 26, 2025 Dr. Herberth Carlson MD Emergency Provider Active Start: February 26, 2025 Dr. Kathie Powers MD Admit Provider Active Star t: February 26, 2025 Dr. Kathie Powers MD Other Provider Active Star t: February 26, 2025 Dr. Rick Calrin , Attending Provider Active Start: February 26, 2025 Dr. Rick Carlin , Other Provider Active S tart: February 26, 2025 Team Status: Active Member Role/Relationship Status Dates Josydominique Baumannhof , HEADER UP-C Primary Care Provider Active Start: February 27, [...] Member Role/Relationship Status Dates Josydominique Baumannhof , HEADER UP-C Primary Care Provider Active Start: March 04, 2025 MINDY CONTRERAS Attending Provider Active Start: 2024 DIANE BILLE Referring Provider Active Start: [facility] 2024 Team Status: Inactive Member Role/Relationship Status Dates Josy Pastorhof , HEADER UP-C Primary Care Provider Active Start: March 10, 2025 End: March 10, 2025 Josy Pastorhof , HEADER UP-C Referring Provider Active Start: March 10, 2025 End: March 10, 2025 Dr. Roby Balderas MD Attending Provider Active Start: March 10, 2025 End: March 10, 2025 Team Status: Inactive Member Role/Relationship Status Dates Josy Tannhof , HEADER UP-C Primary Care Provider Active Start: March 11, 2025 End: March 11, 2025 Dr. Alber Dunn MD Emergency Provider Active S tart: March 11, 2025 End: March 11, 2025 Team Status: Inactive Member Role/Relationship Status Dates Josy Tannhof , HEADER UP-C Primary Care Provider Active Start: December 15, 2024 End: December 15, 2024 Josydominique Elias , HEADER UP-C Attending Provider Active Start: December 15, 2024 End: December 15, 2024 Josydominique Baumannhof , HEADER UP-C Referring Provider Active Start: December 15, 2024 End: December 15, 2024 Team Status: Inactive Member Role/Relationship Status Dates Josydominique Elias , HEADER UP-C Primary Care Provider Active Start: December 26, 2024 End: December 26, 2024 Dr. Boone Carvajal DO Attending Provider Active Start: December 26, 2024 End: December 26, 2024 Dr. Boone Carvajal DO Emergency Provider Active Start: December 26, 2024 End: December 26, 2024 Team Status: Inactive Member Role/Relationship Status Dates Josydominique Baumannhof , HEADER UP-C Primary Care Provider Active Start: December 30, 2024 End: December 30, 2024 Dr. Mina Blood DO Attending Provider Active Start: December 30, 2024 End: December 30, 2024 Dr. Mina Blood DO Emergency Provider Active Start: December 30, 2024 End: December 30, 2024 Team Status: Inactive Member Role/Relationship Status Dates Josydominique Baumannhof , HEADER UP-C Primary Care Provider Active Start: January 02, [...] Member Role/Relationship Status Dates Josydominique Elias , HEADER UP-C Primary Care Provider Active Start: January 03, [...] Member Role/Relationship Status Dates Josydominique Obrienf , HEADER UP-C Primary Care Provider Active Start: January 04, [...] Active Member Role/Relationship Status Dates Josy Elias HEADER UP-C Primary Care Provider Active Start: January 05, [...] Inactive Member Role/Relationship Status Dates Josy Elias HEADER UP-C Primary Care Provider Active Start: January 09, [...] Active Member Role/Relationship Status Dates Josy Elias HEADER UP-C Primary Care Provider Active Start: January 10, [...] Provider Active Start: January 10, 2025 Dr. hBarathi Trujillo MD Other Provider Active Start : [...] Active Member Role/Relationship Status Dates Josy Elias HEADER UP-C Primary Care Provider Active Start: January 10, [...] S tart: January 11, 2025 Dr. Yaritza Loe DO Admit Provider Active Start : January [...] tart: January 15, 2025 Dr. Yaritza Leo , Admit Provider Active Start : January 15, [...] Active Member Role/Relationship Status Dates Josy Elias HEADER UP-C Primary Care Provider Active Start: January 17, [...] tart: January 20, 2025 Dr. Yaritza Leo , DO Admit [...] 31, 2025 Dr. Boone Izquierdo , DO Other [...] January 29, 2025 Dr. Boone Izquierdo , Admit Provider Active Star t: January 29, [...] 13, 2025 End: February 13, 2025 Dr. uLis Carlos Anderson DO Emergency Provider Active Start: [...] End: February 17, 2025 Dr. Jae Ash , DO Admit Provider Active Start: February 16, 2025 End: February 17, 2025 Dr. Jae Ash DO Other Provider Active Start: February 16, 2025 End: February 17, 2025 Dr. Niranjan Li , [...] February 17, 2025 Dr. Anurag Irene MD Referring Provider Active Start: February 17, 2025 Dr. Anurag Irene MD Other Provider Active Sta rt: February 17, 2025 YG Pena Primary Care Provider Active Start: February 17, 2025 Team Status: Inactive Member Role/Relationship Status Dates Josy Tannhof , HEADER UP-C Primary Care Provider Active Start: February 24, 2025 End: February 25, 2025 Julita Glover Attending Provider Active Sta rt: February 24, 2025 End: February 25, 2025 Josy Elias HEADER UP-C Referring Provider Active Start: February 24, 2025 End: February 25, 2025 Josy Elias , HEADER UP-C Other Provider Active Star t: February 24, 2025 End: February 25, 2025 Team Status: Active Member Role/Relationship Status Dates Josy Elias HEADER UP-C Primary Care Provider Active Start: February 25, 2025 Dr. Herberth Carlson MD Emergency Provider Active Start: February 25, 2025 Dr. Kathie Powers MD Attending Provider Active Start: February 25, 2025 Team Status: Inactive Member Role/Relationship Status Dates Josy Elias HEADER UP-C Primary Care Provider Active Start: February 25, [...] Active Member Role/Relationship Status Dates Josy Elias HEADER UP-C Primary Care Provider Active Start: February 25, 2025 Dr. Herberth Carlson MD Emergency Provider Active Start: February 25, 2025 Dr. Kathie Powers MD Admit Provider Active Star t: February 25, 2025 Dr. Kathie Powers MD Other Provider Active Star t: February 25, 2025 Dr. Niranjan Li DO Attending Provider Active Start: February 25, 2025 Dr. Rick Carlin DO Referring Provider Active Start: February 25, 2025 Team Status: Active Member Role/Relationship Status Dates Josy Elias , HEADER UP-C Primary Care Provider Active Start: February 26, [...] Member Role/Relationship Status Dates Josy Elias , HEADER UP-C Primary Care Provider Active Start: February 27, [...] S tart: February 27, 2025 Team Status: Inactive Member Role/Relationship Status Dates Josydominique Elias , HEADER UP-C Primary Care Provider Active Start: March 04, 2025 End: March 04, 2025 MINDY CONTRERAS Attending Provider Active Start: 2024 End: March 04, 2025 MINDY CONTRERAS Referring Provider Active Start: [facility] 2024 End: March 04, 2025 Team Status: Inactive Member Role/Relationship Status Dates Josy Elias , HEADER UP-C Primary Care Provider Active Start: March 10, 2025 End: March 10, 2025 Josy Elias , HEADER UP-C Referring Provider Active Start: March 10, 2025 End: March 10, 2025 Dr. Roby Balderas MD Attending Provider Active Start: March 10, 2025 End: March 10, 2025 Team Status: Inactive Member Role/Relationship Status Dates Josy Elias , HEADER UP-C Primary Care Provider Active Start: March 11, 2025 End: March 11, 2025 Dr. Alber Dunn MD Attending Provider Active S tart: March 11, 2025 End: March 11, 2025 Dr. Alber Dunn MD Emergency Provider Active S tart: March 11, 2025 End: March 11, 2025 Team Status: Inactive Member Role/Relationship Status Dates Josy Elias , HEADER UP-C Primary Care Provider Active Start: March 30, 2025 End: March 30, 2025 Dr. Roby Balderas MD Attending Provider Active Start: March 30, 2025 End: March 30, 2025 Dr. Roby Balderas MD Referring Provider Active Start: March 30, 2025 End: March 30, 2025 Team Status: Active Member Role/Relationship Status Dates Josy Elias HEADER UP-C Primary Care Provider Active Start: March 30, 2025 Dr. Roby Balderas MD Attending Provider Active Start: March 30, 2025 Dr. Roby Balderas MD Referring Provider Active Start: March 30, 2025 Dr. Roby Balderas MD Other Provider Active Start: March 30, 2025 Team Status: Inactive Member Role/Relationship Status Dates Josy Elias HEADER UP-C Primary Care Provider Active Start: April 03, 2025 End: April 03, 2025 Dr. Jose Fox MD Emergency Provider Active Sta rt: April 03, 2025 End: April 03, 2025 Team Status: Active Member Role/Relationship Status Dates Josy Elias HEADER UP-C Primary Care Provider Active Start: April 07, 2025 Dr. Rachel Joiner DO Emergency Provider Active Start: April 07, 2025 Dr. Maria Guadalupe Shore MD Attending Provider Active Start: April 07, 2025 Team Status: Active Member Role/Relationship Status Dates Josy Elias HEADER UP-C Primary Care Provider Active Start: April 07, 2025 Dr. Rachel Joiner DO Emergency Provider Active Start: April 07, 2025 Dr. Maria Guadalupe Shore MD Admit Provider Active St art: April 07, 2025 Dr. Maria Guadalupe Shore MD Attending Provider Active Start: April 07, 2025 (unrecognized sect ion and content) No Status Records FoundNo Status Records FoundNo Status Records FoundNo Status Records Found INFORMATION SOURCE (unrecogn ized section and content) DATE CREATED AUTHOR 10/10/[address] [facility] DATE CREATED AUTHOR AUTHOR'S ORGANIZ ATION 12/13/2024 [facility] DATE CREATED AUTHOR AUTHOR'S ORGANIZ ATION 02/18/2025 [facility] DATE CREATED AUTHOR AUTHOR'S ORGANIZ ATION 04/08/2025 [facility] Source Comments (unrecognize d section and content) In the event this informatio n is protected by the Federal Confidentiality of Alcohol and Drug Abuse Patient Records regulations: The Federal rules restrict any use of the information to criminally investigate or prosecute any alcohol or drug abuse patient.[facility] the event this information is protected by the Federal Confidentiality of Alcohol and Drug Abuse Patient Records regulations: The Federal rules restrict any use of the information to criminally investigate or prosecute any alcohol or drug abuse patient.[facility] Center[facility] the event this information is protected by the Federal Confidentiality of Alcohol and Drug Abuse Patient Records regulations: The Federal rules restrict any use of the information to criminally investigate or prosecute any alcohol or drug abuse patient.[facility] the event this information is protected by the Federal Confidentiality of Alcohol and Drug Abuse Patient Records regulations: The Federal rules restrict any use of the information to criminally investigate or prosecute any alcohol or drug abuse patient.[facility] the event this information is protected by the Federal Confidentiality of Alcohol and Drug Abuse Patient Records regulations: The Federal rules restrict any use of the information to criminally investigate or prosecute any alcohol or drug abuse patient.[facility] the event this information is protected by the Federal Confidentiality of Alcohol and Drug Abuse Patient Records regulations: The Federal rules restrict any use of the information to criminally investigate or prosecute any alcohol or drug abuse patient.[facility] Center[facility] the event this information is protected by the Federal Confidentiality of Alcohol and Drug Abuse Patient Records regulations: The Federal rules restrict any use of the information to criminally investigate or prosecute any alcohol or drug abuse patient.[facility] Center[facility] the event this information is protected by the Federal Confidentiality of Alcohol and Drug Abuse Patient Records regulations: The Federal rules restrict any use of the information to criminally investigate or prosecute any alcohol or drug abuse patient.[facility] the event this information is protected by the Federal Confidentiality of Alcohol and Drug Abuse Patient Records regulations: The Federal rules restrict any use of the information to criminally investigate or prosecute any alcohol or drug abuse patient.[facility] Center[facility] the event this information is protected by the Federal Confidentiality of Alcohol and Drug Abuse Patient Records regulations: The Federal rules restrict any use of the information to criminally investigate or prosecute any alcohol or drug abuse patient.[facility] Center[facility] the event this information is protected by the Federal Confidentiality of Alcohol and Drug Abuse Patient Records regulations: The Federal rules restrict any use of the information to criminally investigate or prosecute any alcohol or drug abuse patient.[facility] FOR RECORDS PERTAINING TO PATIENTS [...] BE BASED ON THE PRIMARY CLINICAL RECORDS. [facility]. provides no warranty or guarantee of the accuracy or completeness of information in this document.
--- NOTE | 2025-04-08 03:53 | PN.HOSP_ITS ---
Hospitalist Note Respiratory panel with + rhinovirus.
--- NOTE | 2025-04-08 03:53 | PCM.HOSP.N ---
Hospitalist Note Respiratory panel with + rhinovirus.
[2025-04-08 06:34] VITALS: BP 101/60; PULSE 77; RESP 15; TEMP 37.2; O2SAT 98
[2025-04-08 06:38] LABS: Hematocrit 27.5 % (40-54); Hemoglobin 9.0 g/dL (13.0-16.5); Immature Granulocytes Count 0.030 X10^3/uL (0.0-0.0); Mean Corp Hgb Conc 32.7 g/dL (32-36); Mean Corpuscular Volume 93.5 fL (80-94); Mean Platelet Vol. 10.3 fl (6.2-12.0); NRBC Flagged by Analyzer 0 % (0-5); Platelet Count 124 K/mm3 (150-450); RBC Distribution Width CV 15.8 % (11.6-14.6); RBC Distribution Width SD 53.2 fl (35.1-43.9); Red Blood Count 2.94 M/mm3 (4.6-6.2); White Blood Count 6.5 K/mm3 (4.4-11.0)
[2025-04-08 08:14] LABS: Ammonia 105.0 umol/L (16-60)
[2025-04-08 08:16] LABS: AST(SGOT) 44 U/L (<=37); Alanine Aminotransfer ALT/SGPT 22 U/L (<=46); Albumin, Serum 2.1 g/dL (3.5-5.0); Alkaline Phosphatase 146 U/L (40-129); Anion Gap 8 (5-15); BUN 10 mg/dL (4-19); BUN/Creat Ratio 10.0 RATIO (10-20); Calcium,Total 8.4 mg/dL (7.6-11.0); Carbon Dioxide 16.1 mmol/L (21.0-32.0); Chloride 111 mmol/L (98-108); Estimated Creatinine Clearance 92.41 ml/min (50-250); Globulin 3.2 g/dL (2.2-4.2); Glucose 113 mg/dL (70-99); Potassium 3.9 mmol/L (3.3-5.1)
[2025-04-08 08:50] VITALS: BP 124/70; PULSE 77; RESP 18; TEMP 36.9; O2SAT 99
--- NOTE | 2025-04-08 09:37 | NURSING ---
Sanam from Hospice called wanting update on pt to see if he was IUP ready. I informed her that pt is up walking with PT/OT and eating breakfast. I also informed her that pt informed me that he does not want to be on HOSPICE anymore. She said that she would talk with her social workers and get back with us.
[2025-04-08 13:46] VITALS: BP 113/68; PULSE 80; RESP 18; TEMP 36.3; O2SAT 100
--- NOTE | 2025-04-08 15:24 | CASEMGMT ---
Social Work- JEANNINE received notice from RNCM that pt would like staff to coordinate d/c plans with Sylvia, LOCO and ex-. Pt reports that he does not want to resume with hospice and would like [facility] if Sylvia is agreeable as well. SW called Sylvia who reports that they were unhappy with hospice, as they told Sylvia that she didn't do anything right. Sylvia reports that hospice told her she didn't give medications correctly, injections correctly, and felt that they were rude. Sylvia indicated that they didn't do much, but also reporting that hospice would stay 2 hours every visit. Sylvia reports that hospice did not have regularly scheduled visits, but that they came only when asked to come for an emergency or urgent issue. Sylvia reports that she would be agreeable to [facility]. Sylvia would like a list texted to her. SW updated DCA on list request. SW to follow up for choices. JANETTE Valladares
--- NOTE | 2025-04-08 15:28 | CASEMGMT ---
DAYSI HUGHES Assessment Face to Face with patient for initial transition planning/care coordination assessment. DAYSI HUGHES introduced self and role at [facility], pt voices understanding. Pt is A&Ox4 and is resting comfortably in bed and is calm. Care providers, pharmacy, and demographics verified. Admitting dx: Hepatic Encephalopathy LACE Strata: 3 PCP: Josy Elias Specialists: Denies Preferred Pharmacy: [facility] Insurance: [employer] Prescription Benefit: Yes LNOK: Mary Robertson (SO/ Fiance - Lives in [place]), Haile and Dominic (Sons - Live in [place]), Jerald (Landlord and XW's SO), Sylvia (XW and POA) Living Arrangements: Pt lives with his ex- (Sylvia), Ex-'s SO and landlord (Jerald), and brother in law (Vikas) in a 2 story home with a FFSU and a flat entrance ADLs/IADLs: Pt states that he requires assistance at home and that Sylvia, Vikas, and Jerald help him as needed Transportation: Sylvia, Jerald, Shama DME: Functioning BGM with sufficient supplies (Sylvia helps with this). BSC. FWW. Cane. Shower chair. HHC/SNF/Hospice: Reports HH hx when he lived in [place]. Reports hx at [facility]. Pt reports that he was recently on home hospice services but that he revoked the resource and states, I feel like they weren't doing anything for me. Pt declines Hospice services now but states that he may be interested in Palliative Care and HHC. Pt states to contact Sylvia regarding both of these resources. MS3 DAYSI HUGHES and SW notified and SW plans to follow up. Pt?s goal: Return Home Plan: Anticipate home with HHC and Palliative Care. Pt adamantly denies SNF needs. Pt states that he feels safe returning home once medically ready and denies further questions or concerns at this time. Tayla Galloway RN, CM
--- NOTE | 2025-04-08 15:36 | CASEMGMT ---
Discharge Planning A list of HH providers including quality and resource use data and consistent with the patient's preferred geographic region, medical needs, and insurance network were provided to pts ex- via text message from the [employer] link. India Platt, Discharge Planning Asst.
--- NOTE | 2025-04-08 16:51 | PN.HOSP_ITS ---
Reason for Visit Chief Complaint: Confusion, weakness. Subjective Subjective Patient was seen and examined today, he is drowsy but awakens to verbal stimulation and follows commands. I have placed him on Xifaxan and oral lactulose. Objective Data Objective Data Vital Signs: Vital Signs Temp Pulse Resp BP Pulse Ox O2 Del Method 97.4 F L 80 18 113/68 100 Room Air 04/08/25 13:46 04/08/25 13:46 04/08/25 13:46 04/08/25 13:46 04/08/25 13:46 04/08/25 13:46 Oxygen Delivery Method Room Air Weight: 96.8 kg Body Mass Index (BMI) 31.5 Intake & Output: Intake and Output for Last 24 Hours 04/06/25 04/07/25 04/08/25 23:59 23:59 23:59 Intake Total 100 / 100 Balance 100 / 100 Lab / Micro Data 04/08/25 06:25 04/08/25 06:25 Labs: Laboratory Results - last 24 hr 04/07/25 18:19: POC Glucose 81 04/07/25 18:32: WBC 7.9, RBC 3.06 L, Hgb 9.1 L, Hct 27.7 L, MCV 90.5, MCH 29.7, MCHC 32.9, RDW Std Deviation 50.8 H, RDW Coeff of Francis 15.5 H, Plt Count 164, MPV 10.8, Immature Gran % (Auto) 0.500, Neut % (Auto) 67.0, Lymph % (Auto) 16.8 L, [place] % (Auto) 9.9, Eos % (Auto) 5.2 H, Baso % (Auto) 0.6, Absolute Neuts (auto) 5.3, Absolute Lymphs (auto) 1.32, Nucleated RBC % 0, Sodium 136, Potassium 4.0, Chloride 110 H, Carbon Dioxide 16.9 L, Anion Gap 9, BUN 11, Creatinine 1.04, Est GFR (MDRD) Non-Af 83, BUN/Creatinine Ratio 10.5, Glucose 106 H, Calcium 8.6, Phosphorus 3.0, Magnesium 1.7, Total Bilirubin 1.76 H, Direct Bilirubin 1.11 H, AST 48 H, ALT 23, Alkaline Phosphatase 176 H, Total Protein 6.1, Albumin 2.4 L, Globulin 3.8, Lipase 47, Procalcitonin 0.09 04/07/25 20:26: Ammonia 143.0 H 04/07/25 21:42: Urine Color Yellow, Urine Clarity Sl. Cloudy, Urine pH 6.5, Ur Specific [place] 1.015, Urine Protein 100 H, Urine Glucose (UA) Normal, Urine Ketones Negative, Urine Occult Blood 250 H, Urine Nitrite Negative, Urine Bilirubin Negative, Urine Urobilinogen Normal, Ur Leukocyte Esterase 500 H, Urine RBC 50-100 SEEN, Urine WBC 0-5 SEEN, Ur Squamous Epith Cells 0 SEEN, Urine Bacteria 1+, Urine Mucus 0 SEEN 04/08/25 00:51: POC Glucose 145 H 04/08/25 06:25: WBC 6.5, RBC 2.94 L, Hgb 9.0 L, Hct 27.5 L, MCV 93.5, MCH 30.6, MCHC 32.7, RDW Std Deviation 53.2 H, RDW Coeff of Francis 15.8 H, Plt Count 124 L, MPV 10.3, Immature Gran % (Auto) 0.500, Neut % (Auto) 59.8, Lymph % (Auto) 22.5, [place] % (Auto) 10.7 H, Eos % (Auto) 5.7 H, Baso % (Auto) 0.8, Absolute Neuts (auto) 3.9, Absolute Lymphs (auto) 1.47, Nucleated RBC % 0, Sodium 135, Potassium 3.9, Chloride 111 H, Carbon Dioxide 16.1 L, Anion Gap 8, BUN 10, Creatinine 1.00, Estim Creat Clear Calc 92.41, Est GFR (MDRD) Non-Af 87, BUN/Creatinine Ratio 10.0, Glucose 113 H, Calcium 8.4, Total Bilirubin 1.80 H, A ST 44 H, ALT 22, Alkaline Phosphatase 146 H, Ammonia 105.0 H, Total Protein 5.4 L, Albumin 2.1 L, Globulin 3.2, Albumin/Globulin Ratio 0.7 L 04/08/25 06:29: POC Glucose 113 H 04/08/25 11:19: POC Glucose 244 H 04/08/25 16:26: POC Glucose 224 H Micro: Microbiology 04/07/25 23:57 Mucosa - Nasopharyngeal Respiratory Panel (PCR) - Final Rhinovirus 04/07/25 23:57 Mucosa - Nose Coronavirus COVID-19 PCR - Final Rhythm Strip Rhythm Strip: Sinus Rhythm Rate: 74 Ectopy: None Physical Exam Const no apparent distress and average body habitus Constitutional Narrative: Patient is drowsy but awakens to verbal stimulation, he does follow commands General Appearance: cooperative, well kempt and well developed Orientation / Consciousness: oriented to person and oriented to place HEENT normocephalic and moist oral mucous membranes Eyes PERRL, EOMs intact bilaterally and conjunctivae normal Neck supple, no JVD, thyroid normal and no carotid bruits General: trachea midline Resp normal respiratory effort, no retractions, no use of accessory muscles and clear to auscultation bilaterally Auscultation: Negative for rales, rhonchi or wheezes Cardio regular rate, regular rhythm, S1 normal heart sound, S2 normal heart sound, no murmurs, no rub and no gallops Cardio Narrative: 2/6 systolic murmur is noted at the apex and left sternal border GI normal to inspection, nondistended, normoactive bowel sounds, soft to palpation, non-tender and non-distended Extremity no clubbing, cyanosis or edema Skin no rashes or lesions noted General Skin Exam: no breakdown Neuro CN's II-XII intact bilaterally, moves all extremities, no focal motor deficits and no sensory deficits noted Neuro Narrative: Patient is drowsy but does awaken to verbal stimulation Sensorium / Orientation: oriented to person and oriented to place Speech: speech normal Psych Psych Narrative: Patient is drowsy, he awakens to verbal stimulation Assessment & Plan Assessment/Plan (1) Hepatic encephalopathy: PLAN: Plan 1. Hepatic encephalopathy-patient is alert enough to take oral medications at this time, he will be monitored #2 MASLD with cirrhosis-patient is on diuretic, complicates care, management, recovery, and prognosis #3 generalized debility secondary to chronic liver disease-patient is under hospice care at home, this was likely revoked when he was admitted to the hospital #4 type 2 diabetes-blood sugars will be monitored, sliding scale insulin will be administered as needed #5 essential hypertension-patient is on Lasix, spironolactone, and Coreg Total clinical time spent by myself addressing the patient's medical issues, reviewing all of his data, and collaborating with patient's care team: 35 minutes Charges/Coding Visit Charges Inpatient E&M: 10326 Subs Hosp L2
[2025-04-08] MEDS: 0.9% Saline Lock 10 ML Syringe IV (19:48)
[2025-04-08] MEDS: MELATONIN 3 MG TABLET PO (19:48)
[2025-04-08 20:00] VITALS: BP 124/71; PULSE 85; RESP 16; TEMP 36.7; O2SAT 100
[2025-04-09 06:00] VITALS: BP 122/76; PULSE 80; RESP 16; TEMP 36.6; O2SAT 99
[2025-04-09 06:04] VITALS: BMI 30.7
[2025-04-09 09:57] VITALS: BP 115/65; PULSE 72; RESP 18; TEMP 36.5; O2SAT 96
--- NOTE | 2025-04-09 12:02 | CASEMGMT ---
Social Work SW spoke w/physician, pt may be ready for d/c on the weekend. JEANNINE spoke w/pt earlier, confirmed plan continues to be for pt to return home w/[facility] and Sylvia to let SW know agencies where she would like referrals sent. JEANNINE called Sylvia, reviewed [facility] list w/Sylvia on the phone. There are only four agencies on the list, Sylvia agreeable to JEANNINE sending referrals to all four to see who may be able to take pt, she does not have a preference of agency at this time. JEANNINE explained if pt does get d/c on the weekend, SW/CM will follow up to let her know if one of the agencies is able to take pt. Sylvia states understanding. She confirms they do not want hospice and pt does not want SNF, she will take pt home and continue to care for him. JEANNINE made referrals in [facility] to [facility], [facility], [facility], [facility]. JEANNIEN left a message for [facility]. JEANNINE/CM to follow up on Friday. PIERRE Tobias
--- NOTE | 2025-04-09 13:48 | PCM.PN.HOSP ---
Reason for Visit Chief Complaint: Confusion, weakness. Objective Data Objective Data Vital Signs: Vital Signs Temp Pulse Resp BP Pulse Ox O2 Del Method 97.7 F L 72 18 115/65 96 Room Air 04/09/25 09:57 04/09/25 09:57 04/09/25 09:57 04/09/25 09:57 04/09/25 09:57 04/09/25 09:57 Oxygen Delivery Method Room Air Weight: 207 lb 1.6 oz Body Mass Index (BMI) 30.7 Intake & Output: Intake and Output for Last 24 Hours 04/07/25 04/08/25 04/09/25 23:59 23:59 23:59 Intake Total 100 / 100 Output Total 300 / 300 Balance -200 / -200 Lab / Micro Data 04/08/25 06:25 04/08/25 06:25 Labs: Laboratory Results - last 24 hr 04/08/25 16:26: POC Glucose 224 H 04/08/25 19:51: POC Glucose 186 H 04/09/25 06:00: POC Glucose 163 H 04/09/25 11:53: POC Glucose 201 H Micro: Microbiology 04/07/25 21:42 Urine, Clean Catch Urine Culture - Preliminary Culture exhibits no growth. 04/07/25 23:57 Mucosa - Nasopharyngeal Respiratory Panel (PCR) - Final Rhinovirus 04/07/25 23:57 Mucosa - Nose Coronavirus COVID-19 PCR - Final Rhythm Strip Rhythm Strip: Sinus Rhythm Rate: 74 Ectopy: None Physical Exam Narrative Seen and examined Patient nurse said patient had pinkish urine. General: Alert, Oriented x3, Cooperative HEENT: Atraumatic, PERRLA, EOMI, Normocephalic. Oral: Oral mucosa moist. No Gingival or Mucosal Lesions/ Ulcerations Neck: Supple, No JVD, Negative Carotid Bruits Chest wall/Lungs: Air entry diminished in bilateral lung bases. No crepitation/rhonchi Cardiovascular: Regular rate and rhythm, Normal S1,S2, No M/G/R Abdomen: Bowel Sounds Present, Soft, Non Tender, shifting dullness/mild ascites present. : No dysuria. Hematuria. No renal angle tenderness. No suprapubic tenderness. Extremities: No edema, Capillary Refill Less than 3 Seconds Skin: Bruises present on left upper arm and abdomen. Coagulopathy. Musculoskeletal: No Tenderness to Palpation of Joints or Extremities Neurological: Cranial nerves II-XII grossly intact, DTR 2+/4. No acute focal neurological deficit. Psych/Mental Status: flat affect, forgetful Assessment & Plan Assessment/Plan (1) Hepatic encephalopathy: PLAN: Plan 1. Acute hepatic encephalopathy decompensated HARRIS cirrhosis with portosystemic anastomosis, esophageal varices: [facility]. Has been admitted multiple times recently for think. Once patient was in hospice care and requested PleurX catheter in the abdomen for ascites drainage. Ultrasound-guided tunneled catheter was inserted on 03/30. But patient got admitted on 04/07 after hospice revoked. In the past, he was found not transplant candidate by [facility] and he keeps changing mind to go to other hospital for transplant evaluation. Mild to moderate normocytic normochromic anemia with chronic thrombocytopenia: Patient H&H varies between 8 to 9 g and once was 7.7 on 02/17. No significant drop in last 2 to 3 days. Anticoagulant discontinued. Yesterday, after discussion with Dr. Rick Barr, the plan was discharged but patient had hematuria with reddish urine therefore UA ordered and discharge canceled. Previous UA shows RBC 50?100 cells. #2 MASLD with cirrhosis-patient is on diuretic, complicates care, management, recovery, and prognosis #3 generalized debility secondary to chronic liver disease-patient is under hospice care at home, this was likely revoked when he was admitted to the hospital #4 type 2 diabetes-: Glucoses being monitored. #5 essential hypertension-patient is on Lasix, spironolactone, and Coreg Microbiology Past 72 Hours 04/07/25 21:42 Urine, Clean Catch Urine Culture - Preliminary Culture exhibits no growth. 04/07/25 23:57 Mucosa - Nasopharyngeal Respiratory Panel (PCR) - Final Rhinovirus 04/07/25 23:57 Mucosa - Nose Coronavirus COVID-19 PCR - Final Laboratory Results 04/08/25 16:26: POC Glucose 224 H 04/08/25 19:51: POC Glucose 186 H 04/09/25 06:00: POC Glucose 163 H 04/09/25 11:53: POC Glucose 201 H Charges/Coding Visit Charges Inpatient E&M: 38510 Subs Hosp L2
[2025-04-09 13:58] VITALS: BP 126/70; PULSE 79; RESP 16; TEMP 36.6; O2SAT 98
[2025-04-09 14:23] LABS: Hematocrit 24.8 % (40-54); Hemoglobin 8.4 g/dL (13.0-16.5)
[2025-04-09 15:49] LABS: Mucous, Urine 0 SEEN /hpf (<or=2+)
[2025-04-09 15:50] LABS: Color, Urine Straw (Yellow); Glucose, Dipstick Normal (Normal); Ketone-Dipstick Negative (Negative); Leukocyte Esterase-Dipstick 100 /ul (Negative); Nitrite-Dipstick Negative (Negative); Occult Blood-Urine 250 /ul (Negative); Protein-Dipstick 30 mg/dl (Negative); Specific Gravity, Urine 1.010 (1.002-1.030); Urine Bilirubin Dipstick Negative (Negative)
[2025-04-09 16:11] LABS: Red Blood Cells-Urine 10-25 SEEN /hpf (0-5); Squamous Epithelial Cells - UA 0-5 SEEN /hpf (0-5)
[2025-04-09 20:00] VITALS: BP 110/61; PULSE 83; RESP 18; TEMP 36.7; O2SAT 99
[2025-04-09] MEDS: Insulin Glargine-YFGN 100 UNIT/ML Pen 30 UNIT SC (22:55)
[2025-04-10 03:00] VITALS: BP 109/62; PULSE 78; RESP 18; TEMP 36.7; O2SAT 100
[2025-04-10 06:00] VITALS: BMI 32.0
[2025-04-10 07:21] VITALS: O2SAT 94
[2025-04-10 07:36] LABS: Hematocrit 22.2 % (40-54); Hemoglobin 7.6 g/dL (13.0-16.5); Immature Granulocytes Count 0.040 X10^3/uL (0.0-0.0); Mean Corp Hgb Conc 34.2 g/dL (32-36); Mean Corpuscular Volume 88.4 fL (80-94); Mean Platelet Vol. 11.1 fl (6.2-12.0); NRBC Flagged by Analyzer 0 % (0-5); Platelet Count 114 K/mm3 (150-450); RBC Distribution Width CV 15.5 % (11.6-14.6); RBC Distribution Width SD 49.1 fl (35.1-43.9); Red Blood Count 2.51 M/mm3 (4.6-6.2); White Blood Count 6.4 K/mm3 (4.4-11.0)
[2025-04-10 07:45] VITALS: BP 109/57; PULSE 80; RESP 16; TEMP 36.7; O2SAT 98
[2025-04-10 07:55] LABS: AST(SGOT) 37 U/L (<=37); Alanine Aminotransfer ALT/SGPT 22 U/L (<=46); Albumin, Serum 2.0 g/dL (3.5-5.0); Alkaline Phosphatase 140 U/L (40-129); Anion Gap 9 (5-15); BUN 9 mg/dL (4-19); BUN/Creat Ratio 7.4 RATIO (10-20); Calcium,Total 8.1 mg/dL (7.6-11.0); Carbon Dioxide 17.8 mmol/L (21.0-32.0); Chloride 107 mmol/L (98-108); Estimated Creatinine Clearance 80.17 ml/min (50-250); Globulin 3.0 g/dL (2.2-4.2); Glucose 199 mg/dL (70-99); Potassium 3.3 mmol/L (3.3-5.1)
--- NOTE | 2025-04-10 08:35 | PCM.DC ---
Discharge Instructions DC O2, CPAP, BIPAP needs Home O2 Discharge instructions: No Dressing / Incision Discharge Activity: Return to Normal Activity Weight Bearing Status: Weight bearing as tolerated Dressing / Incision Call your doctor if you observe: Fever of 101 or Higher, Coldness, Increased Pain, Numbness or Tingling, Change in Color, Inability to urinate, Inability to have a bowel movement, Shortness of breath, Dizziness, Fainting spells, Swelling in the ankles, Chest pain, Prolonged hiccupping, Increased palpitations (irregular heartbeat) and Calf discomfort Follow Up Care When: IN 2 WEEKS Test Results: Test results from this visit will be discussed in further detail at your follow-up appointment, if applicable. Discharge Plan Admission Admit Date/Time: 04/07/25 21:24 Primary Reason for Your Visit: Hepatic encephalopathy due to decompensated cirrhosis Attending Provider: Anurag Irene Primary Care Provider: Josy Elias Consulting Providers: Maria Guadalupe Shore; Rick Carlin Discharge Orders/Prescriptions Prescriptions: New furosemide 40 mg Tablet 40 mg PO DAILY 30 Days Qty: 30 2RF ferrous sulfate 325 mg (65 mg iron) tablet 325 mg PO QODAY Qty: 30 2RF ascorbic acid (vitamin C) 500 mg tablet 500 mg PO BID Qty: 60 2RF Continued cyclobenzaprine 10 mg tablet 10 mg PO QHS (DME) pen needle, diabetic [Pen Needle] 31 gauge x 5/16 needle See Rx Instructions .Route Qty: 1200 0RF Rx Instructions: As directed acetaminophen 500 mg Tablet 1,000 mg PO Q8 PRN (Reason: fever or pain) insulin glargine-yfgn 100 unit/mL (3 mL) Insulin Pen 30 unit subcut QHS metformin 500 mg tablet 500 mg PO QHS sodium bicarbonate 650 mg tablet 650 mg PO BID oxycodone 5 mg tablet 5 mg PO TID PRN PRN (Reason: dyspnea) insulin lispro [Humalog KwikPen Insulin] 100 unit/mL Insulin Pen 20 unit subcut TIDAC spironolactone 100 mg tablet 150 mg PO DAILY 30 Days Qty: 45 3RF Rx Instructions: Hold for serum potassium more than 5.0. Changed carvedilol 3.125 mg tablet 6.25 mg PO BID 30 Days Qty: 60 2RF Rx Instructions: must administer with a meal/food lactulose 10 gram/15 mL Solution 10 g PO 4XD 30 Days Qty: 1 0RF Patient Comments: hasn't been taking at home Rx Instructions: Goal to have 2-3 soft bowel movements per day Discontinued furosemide 40 mg Tablet 40 mg PO QODAY Referrals / Follow Up: Josy Elias, GEOTHERMAL SHEET METAL WORKER-C [Primary Care Provider] -
[2025-04-10] MEDS: Sodium Ferric Gluconat/Sucrose 250 MG in 0.9% Normal Saline (250mL Bag) 250 ML 135 MG IV (10:08)
--- NOTE | 2025-04-10 10:46 | DS.PCM_ITS ---
Providers Date of Admission: 04/07/25 Date of Discharge: 04/10/25 Primary Care Physician: Josy Elias, MOE-C Reason For Visit: HEPATIC ENCEPHALOPATHY Diagnosis Discharge Diagnosis (1) Hepatic encephalopathy: Status: Acute Code(s): K76.82 - Hepatic encephalopathy Plan 53 gentleman was admitted for confusion and hepatic encephalopathy. He was altered mental status. Patient refused/revoked the hospice. 1. Acute hepatic encephalopathy decompensated HARRIS cirrhosis with portosystemic anastomosis, esophageal varices: Patient is admitted on [facility] floor. Has been admitted multiple times recently for think. Once patient was in hospice care and requested PleurX catheter in the abdomen for ascites drainage. Ultrasound- guided tunneled catheter was inserted on 03/30. But patient got admitted on 04/07 after hospice revoked. In the past, he was found not transplant candidate by [facility] and he keeps changing mind to go to other hospital for transplant evaluation. 04/10: Patient is in the normal/baseline mental status. Acute hepatic cellular control. Advised lactulose 15 mL 4 times daily to have a goal 2-3 bowel movements per day. Follow-up in GI office. Mild to moderate normocytic normochromic anemia with chronic thrombocytopenia: Patient H&H varies between 8 to 9 g and once was 7.7 on 02/17. No significant drop in last 2 to 3 days. Anticoagulant discontinued. Yesterday, after discussion with Dr. Rick Barr, the plan was discharged but patient had hematuria with reddish urine therefore UA ordered and discharge canceled. Previous UA shows RBC 50?100 cells. 04/10: Hemoglobin dropped to 7.6 g, is still noted at level transfusion PRBC. IV ferrous infusion given. Prescription of ferrous sulfate and vitamin C given. Repeat UA shows RBC 10-25 cells better than before. WBC 25-50 cells. Mild microscopic hematuria. Follow-up urology. It might be due to cirrhosis with thrombocytopenia #2 MASLD with cirrhosis-patient is on diuretic, complicates care, management, recovery, and prognosis #3 generalized debility secondary to chronic liver disease-patient is under hospice care at home, this was likely revoked when he was admitted to the hospital #4 type 2 diabetes-: Glucoses being monitored. #5 essential hypertension-patient is on Lasix, spironolactone, and Coreg 04/10: Furosemide decreased to 40 mg daily, spironolactone 150 mg daily. Carvedilol increased to 6.25 mg twice daily. Discharge medication reconciliation done. Discharge follow-up instructions completed. Discharge process discussed with the patient and all questions were answered to patient's satisfaction. Follow with PCP in 1 to 2 weeks Total time spent, exact 35 minutes on discharge meds reconciliation, examination, coordination of care with nurses and ancillary staff, review of imaging and blood test and discussion with the patient on follow-up instructions. Microbiology Past 72 Hours 04/07/25 21:42 Urine, Clean Catch Urine Culture - Preliminary Culture exhibits no growth. 04/07/25 23:57 Mucosa - Nasopharyngeal Respiratory Panel (PCR) - Final Rhinovirus 04/07/25 23:57 Mucosa - Nose Coronavirus COVID-19 PCR - Final Laboratory Results 04/08/25 16:26: POC Glucose 224 H 04/08/25 19:51: POC Glucose 186 H 04/09/25 06:00: POC Glucose 163 H 04/09/25 11:53: POC Glucose 201 H Medications at Discharge Home Medications acetaminophen 500 mg tablet 1,000 mg PO Q8 PRN fever or pain 10/28/24 cyclobenzaprine 10 mg tablet 10 mg PO QHS muscle relaxer 01/02/25 pen needle, diabetic 31 gauge x 5/16 (Pen Needle) #1,200 ea 01/31/25 insulin glargine-yfgn 100 unit/mL (3 mL) subcutaneous pen 30 unit subcut QHS 03/10/25 insulin lispro 100 unit/mL subcutaneous pen (Humalog KwikPen (U-100) Insulin) 20 unit subcut TIDAC 04/07/25 metformin 500 mg tablet 500 mg PO QHS 04/07/25 oxycodone 5 mg tablet 5 mg PO TID PRN PRN dyspnea 04/07/25 sodium bicarbonate 650 mg tablet 650 mg PO BID 04/07/25 ascorbic acid (vitamin C) 500 mg tablet 500 mg PO BID #60 tabs 04/10/25 carvedilol 3.125 mg tablet 6.25 mg (2 x 3.125 mg) PO BID 1 month #60 tabs 04/10/25 ferrous sulfate 325 mg (65 mg iron) tablet 325 mg PO QODAY #30 tabs 04/10/25 furosemide 40 mg tablet 40 mg PO DAILY 30 days #30 tabs 04/10/25 lactulose 10 gram/15 mL oral solution 10 g (15 mL) PO 4XD 30 days #1 mL 04/10/25 spironolactone 100 mg tablet 150 mg (1.5 x 100 mg) PO DAILY 30 days #45 tabs 04/10/25 Physical Exam Narrative Seen and examined The pinkish urine has dissolved. Patient on baseline mental status. He said he had a peritoneal tube catheter and I see operative note of ultrasound-guided placement of tunneled PleurX catheter in the abdomen. Patient is stated that it fell off spontaneously which does not make sense. Physical exam: General: Alert, Oriented x3, Cooperative HEENT: Atraumatic, PERRLA, EOMI, Normocephalic. Oral: Oral mucosa moist. No Gingival or Mucosal Lesions/ Ulcerations Neck: Supple, No JVD, Negative Carotid Bruits Chest wall/Lungs: Air entry diminished in bilateral lung bases. No crepitation/rhonchi Cardiovascular: Regular rate and rhythm, Normal S1,S2, No M/G/R Abdomen: Bowel Sounds Present, Soft, Non Tender, shifting dullness/mild ascites present. No peritoneal catheter. : No dysuria. Hematuria. No renal angle tenderness. No suprapubic tenderness. Extremities: No edema, Capillary Refill Less than 3 Seconds Skin: Bruises present on left upper arm and abdomen. Coagulopathy. Musculoskeletal: No Tenderness to Palpation of Joints or Extremities Neurological: Cranial nerves II-XII grossly intact, DTR 2+/4. No acute focal neurological deficit. Psych/Mental Status: flat affect, forgetful Weight / BMI Weight Weight: 216 lb 4.375 oz Body Mass Index (BMI) 32.0 ABG / Lab / Microbiology Data 04/10/25 06:44 04/10/25 06:44 Laboratory: Laboratory Results - last 24 hr 04/09/25 11:53: POC Glucose 201 H 04/09/25 14:14: Hgb 8.4 L, Hct 24.8 L 04/09/25 15:00: Urine Color Straw, Urine Clarity Cloudy, Urine pH 7.0, Ur Specific [place] 1.010, Urine Protein 30 H, Urine Glucose (UA) Normal, Urine Ketones Negative, Urine Occult Blood 250 H, Urine Nitrite Negative, Urine Bilirubin Negative, Urine Urobilinogen Normal, Ur Leukocyte Esterase 100 H, Urine RBC 10-25 SEEN, Urine WBC 25-50 SEEN, Ur Squamous Epith Cells 0-5 SEEN, Urine Bacteria 2+, Urine Mucus 0 SEEN 04/09/25 16:17: POC Glucose 234 H 04/09/25 22:53: POC Glucose 184 H 04/10/25 06:34: POC Glucose 189 H 04/10/25 06:44: WBC 6.4, RBC 2.51 L, Hgb 7.6 L, Hct 22.2 L, MCV 88.4 D, MCH 30.3, MCHC 34.2, RDW Std Deviation 49.1 H, RDW Coeff of Francis 15.5 H, Plt Count 114 L, MPV 11.1, Immature Gran % (Auto) 0.600, Neut % (Auto) 62.8, Lymph % (Auto) 19.5, [place] % (Auto) 10.6 H, Eos % (Auto) 6.2 H, Baso % (Auto) 0.3, Absolute Neuts (auto) 4.0, Absolute Lymphs (auto) 1.25, Nucleated RBC % 0, Sodium 134, Potassium 3.3, Chloride 107, Carbon Dioxide 17.8 L, Anion Gap 9, BUN 9, Creatinine 1.16, Estim Creat Clear Calc 80.17, Est GFR (MDRD) Non-Af 73, B UN/Creatinine Ratio 7.4 L, Glucose 199 H, Calcium 8.1, Total Bilirubin 1.38 H, AST 37, ALT 22, Alkaline Phosphatase 140 H, Total Protein 4.9 L, Albumin 2.0 L, Globulin 3.0, Albumin/Globulin Ratio 0.7 L Microbiology: Microbiology 04/07/25 21:42 Urine, Clean Catch Urine Culture - Final Culture exhibits no growth. 04/07/25 23:57 Mucosa - Nasopharyngeal Respiratory Panel (PCR) - Final Rhinovirus 04/07/25 23:57 Mucosa - Nose Coronavirus COVID-19 PCR - Final D/C Instructions Weight Bearing Status: Weight bearing as tolerated Call your doctor if you observe: Fever of 101 or Higher, Coldness, Increased Pain, Numbness or Tingling, Change in Color, Inability to urinate, Inability to have a bowel movement, Shortness of breath, Dizziness, Fainting spells, Swelling in the ankles, Chest pain, Prolonged hiccupping, Increased palpitations (irregular heartbeat) and Calf discomfort DC O2, CPAP, BIPAP Needs Home O2 Discharge instructions: No When: IN 2 WEEKS Meaningful Use Info Meaningful Use Meaningful Use Diagnoses (Choose all that apply): None applicable Discharge Plan Admission Admit Date/Time: 04/07/25 21:24 Primary Reason for Your Visit: Hepatic encephalopathy due to decompensated cirrhosis Attending Provider: Anurag Irene Primary Care Provider: Josy Elias Consulting Providers: Maria Guadalupe Shore; Rick Carlin Discharge Orders/Prescriptions Prescriptions: New furosemide 40 mg Tablet 40 mg PO DAILY 30 Days Qty: 30 2RF ferrous sulfate 325 mg (65 mg iron) tablet 325 mg PO QODAY Qty: 30 2RF ascorbic acid (vitamin C) 500 mg tablet 500 mg PO BID Qty: 60 2RF Continued cyclobenzaprine 10 mg tablet 10 mg PO QHS (DME) pen needle, diabetic [Pen Needle] 31 gauge x 5/16 needle See Rx Instructions .Route Qty: 1200 0RF Rx Instructions: As directed acetaminophen 500 mg Tablet 1,000 mg PO Q8 PRN (Reason: fever or pain) insulin glargine-yfgn 100 unit/mL (3 mL) Insulin Pen 30 unit subcut QHS metformin 500 mg tablet 500 mg PO QHS sodium bicarbonate 650 mg tablet 650 mg PO BID oxycodone 5 mg tablet 5 mg PO TID PRN PRN (Reason: dyspnea) insulin lispro [Humalog KwikPen Insulin] 100 unit/mL Insulin Pen 20 unit subcut TIDAC spironolactone 100 mg tablet 150 mg PO DAILY 30 Days Qty: 45 3RF Rx Instructions: Hold for serum potassium more than 5.0. Changed carvedilol 3.125 mg tablet 6.25 mg PO BID 30 Days Qty: 60 2RF Rx Instructions: must administer with a meal/food lactulose 10 gram/15 mL Solution 10 g PO 4XD 30 Days Qty: 1 0RF Patient Comments: hasn't been taking at home Rx Instructions: Goal to have 2-3 soft bowel movements per day Discontinued furosemide 40 mg Tablet 40 mg PO QODAY Referrals / Follow Up: Foster Rascon MD [Med Staff - Active Staff] - Within 2 Weeks (FOR Hematuria) Niranjan Li DO [Med Staff - Active Staff] - Within 1 Month Josy Elias, TELEGRAPH MECHANIC-C [Primary Care Provider] - Disposition Disposition (needs filled in before D/C Order can be placed): Home, Self Care
--- NOTE | 2025-04-11 16:53 | CASEMGMT ---
Social Work- SW received a call from [facility] that referral was declined. Referrals to [facility] and [facility] also declined. SW followed up with [facility] to inquire into decision for referral. SW remains available to follow. JANETTE Valladares
--- NOTE | 2025-04-13 14:45 | CASEMGMT ---
Social Work- SW received a message that [facility] also declines referral. SW attempted to call pt and Sylvia. SW received a message that the person at this number is not accepting calls at this time. JANETTE Valladares
== END 2025-04-10 13:19 | disposition home or self-care (01) ==
LOC: ED 19:06 → MS3 23:53
PROVIDERS: Internal Medicine; Admitting Provider Family Medicine; Emergency Provider Emergency Medicine; PCP Nurse Practitioner Family; Visit Provider Internal Medicine
DX: K76.82 Hepatic encephalopathy (principal); E72.20 Disorder of urea cycle metabolism, unspecified; D63.1 Anemia in chronic kidney disease; E11.22 Type 2 diabetes mellitus with diabetic chronic kidney disease; D69.6 Thrombocytopenia, unspecified; D50.9 Iron deficiency anemia, unspecified; I12.9 Hypertensive chronic kidney disease with stage 1 through stage 4 chronic kidney disease, or unspecified chronic kidney disease; I85.00 Esophageal varices without bleeding; K74.60 Unspecified cirrhosis of liver; N18.2 Chronic kidney disease, stage 2 (mild); Z79.4 Long term (current) use of insulin; E78.5 Hyperlipidemia, unspecified; G47.33 Obstructive sleep apnea (adult) (pediatric); R62.7 Adult failure to thrive; Z87.891 Personal history of nicotine dependence; Z79.899 Other long term (current) drug therapy; Z99.89 Dependence on other enabling machines and devices; R53.81 Other malaise; B97.89 Other viral agents as the cause of diseases classified elsewhere; R31.9 Hematuria, unspecified
CPT/HCPCS: 36415; 80048; 80053; 80076; 81001; 82140; 82962; 83690; 83735; 84100; 84145; 85014; 85018; 85025; 87086; 87633; 87635; 93005; 94668; 97116; 97161; 97166; 97530; 97535; 97802; 99284; 99406; A4216; J2405; J2916

== ENCOUNTER 2025-04-18 14:54 | Inpatient (IN) | payer MEDICAID, SELFPAY ==
[2025-04-18 14:55] VITALS: BP 102/71; PULSE 95; RESP 18; TEMP 36.6; O2SAT 95
[2025-04-18 15:10] VITALS: BMI 30.3
--- NOTE | 2025-04-18 15:10 | CT_ITS ---
PROCEDURE: BRAIN/HEAD WITHOUT CONTRAST N/A REASON FOR EXAM: CONFUSION TECHNIQUE: Procedure Code: CTBR Modality: CT Procedure: BRAIN/HEAD WITHOUT CONTRAST Coronal and Sagittal reconstruction series were provided. One or more dose reduction techniques were used (e.g., Automated exposure control, adjustment of the mA and/or kV according to patient size, use of iterative reconstruction technique. RADIATION DOSE SUMMARY: CTDlvol: 44.99 mGy DLP: 846.73 mGycm COMPARISON: CT head 01/02/2025. FINDINGS: Brain: Low density in the periventricular white matter suggests mild chronic small vessel ischemic changes. No acute territorial infarction. No acute intracranial hemorrhage. No mass-effect or midline shift. No ventriculomegaly. CSF Spaces: Mild generalized cerebral atrophy Sinuses/Mastoids: Clear. Bones: No acute bony abnormalities. CT/Brain/Head without Contrast IMPRESSION: No acute intracranial abnormalities. Reading Location: [id number]
--- NOTE | 2025-04-18 15:10 | EKG12_ITS ---
Test Reason : Blood Pressure : */* mmHG Vent. Rate : 81 BPM Atrial Rate : 81 BPM P-R Int : 198 ms QRS Dur : 88 ms QT Int : 478 ms P-R-T Axes : 36 -32 28 degrees QTcB Int : 555 ms Normal sinus rhythm Left axis deviation Cannot rule out Anterior infarct , age undetermined T wave abnormality, consider lateral ischemia Abnormal ECG Confirmed by Cesar Bradley ([id number]), assignment editor GALLITO GOSS ([id number]) on 04/19/2025 11:59:48 AM Referred By: Confirmed By: Cesar Bradley
--- NOTE | 2025-04-18 15:13 | EDS_ITS ---
HPI History of Present Illness Chief Complaint: Hypoglycemia Informant: patient, family (x2) and EMS Narrative Narrative: 59-year-old male with history of hepatic cirrhosis was on hospice but was taken off of that a couple weeks ago resenting with confusion, abdominal pain, hypoglycemia today. They have been noticing him complaining of abdominal pain for the last couple days, especially when they would provide him with subcutaneous injections in his abdomen no matter where it was, was confused today and called his ex- who is his main grain shipper at home, so she came back home from wherever she was to attend to him and checked his blood sugar and it was in the 30s so EMS was called. He has been awake the whole time according to family. No fevers that they know of or other symptoms and the patient denies being dyspneic right now. Apparently he had an indwelling paracentesis drain that was accidentally pulled out a couple weeks ago, and at that point hospice was discontinued. [facility] Medical History Diffuse abdominal pain Acute hepatic encephalopathy Hyperammonemia Elevated liver enzymes Cirrhosis of liver with ascites Decompensated cirrhosis History of diabetes mellitus Chronic anemia VRE (vancomycin resistant enterococcus) culture positive Spinal stenosis, lumbar region with neurogenic claudication Umbilical hernia Chronic hyponatremia Weakness Diarrhea Sepsis Acidosis, lactic Acute hypotension Acute UTI Chronic hypotension Obesity (BMI 30-39.9) Chronic back pain ISABEL (acute kidney injury) Hypotension Hyperbilirubinemia Liver cirrhosis secondary to HARRIS (nonalcoholic steatohepatitis) HLD (hyperlipidemia) HTN (hypertension) Thrombocytopenia Chronic anemia Former tobacco use Diabetes mellitus, type 2 ABBY on CPAP Back pain Home Medications ?Medication ?Instructions ?Recorded ?Last Taken ?Type acetaminophen 500 mg tablet 1,000 mg PO Q8 PRN fever o r pain 10/28/24 Unknown History cyclobenzaprine 10 mg tablet 10 mg PO QHS muscle relax er 01/02/25 02/15/25 History pen needle, diabetic 31 gauge x #1,200 ea 01/31/25 Unk nown Rx 12/17 (Pen Needle) insulin glargine-yfgn 100 unit/mL 30 unit subcut QHS 0 03/10/25 Unknown History (3 mL) subcutaneous pen insulin lispro 100 unit/mL 20 unit subcut TIDAC Unknown History subcutaneous pen (Humalog KwikPen (U-100) Insulin) metformin 500 mg tablet 500 mg PO QHS 04/07/25 Unkno wn History oxycodone 5 mg tablet 5 mg PO TID PRN PRN dyspnea 04/07/25 Unknown History sodium bicarbonate 650 mg tablet 650 mg PO BID 5 Unknown History ascorbic acid (vitamin C) 500 mg 500 mg PO BID #60 tab s 04/10/25 Unknown Rx tablet carvedilol 3.125 mg tablet 6.25 mg (2 x 3.125 mg) PO B ID 1 04/10/25 03/30/25 Rx month #60 tabs ferrous sulfate 325 mg (65 mg 325 mg PO QODAY #30 tabs 04/10/25 Unknown Rx iron) tablet furosemide 40 mg tablet 40 mg PO DAILY 30 days #30 t abs 04/10/25 Unknown Rx lactulose 10 gram/15 mL oral 10 g (15 mL) PO 4XD 30 da ys #1 mL 04/10/25 Unknown Rx solution spironolactone 100 mg tablet 150 mg (1.5 x 100 mg) PO DAILY 30 04/10/25 Unknown Rx days #45 tabs insulin lispro 100 unit/mL subcut 04/18/25 Unknown His tory subcutaneous half-unit pen Allergy/AdvReac Type Severity Reaction Status Date / Time No Known Allergies Allergy Verified 04/18/25 14:58 Family History Mother Heart disease Hypertension CAD (coronary artery disease) Myocardial infarction Father Hypertension Heart disease Heart failure Surgical History History of tonsillectomy and adenoidectomy Social History household members: other details: Lives with his ex /her . Smoking Status: Former smoker how long ago did patient quit smoking: Quit Fall 2023, smoked 1.5 ppd since teen until quit. alcohol intake: never substance use type: does not use additional social history: EX and a friend help with his care. ROS ROS ED Review of Systems ROS Unobtainable: due to encephalopathy and due to mental status Constitutional Constitutional ED: Reports fatigue; Denies fever(s) Cardiovascular Cardiovascular: Denies chest pain Respiratory/Chest Respiratory/Chest: Denies dyspnea Gastrointestinal Gastrointestinal: Reports abdominal pain; Denies diarrhea or nausea Musculoskeletal Musculoskeletal: Denies back pain Neurologic Neurologic: Denies headache(s) EXAM Physical Exam Const Vital Signs: 04/18/25 14:55 04/18/25 15:10 04/18/25 15:31 Temperature 97.8 F Temperature Source Oral Pulse Rate 95 Respiratory Rate 18 Respiratory Effort Normal Non-Labored Blood Pressure 102/71 Blood Pressure Mean 81 Pulse Ox 95 Oxygen Delivery Method Room Air Room Air 04/18/25 16:00 04/18/25 17:27 04/18/25 18:00 Temperature Temperature Source Pulse Rate 77 68 71 Respiratory Rate 98 H 18 16 Respiratory Effort Blood Pressure 105/65 116/60 114/64 Blood Pressure Mean 78 78 80 Pulse Ox 19 100 100 Oxygen Delivery Method Room Air Room Air Room Air Positive well nourished and well developed Constitutional Narrative: Somnolent but awake and responsive commands General Appearance ED: well developed and NAD HEENT Reports moist mucous membranes normocephalic and atraumatic Eyes PERRL and EOMs intact bilaterally General Eye ED: Yes scleral icterus Neck full ROM and supple Resp normal respiratory effort and clear to auscultation bilaterally Cardio regular rate, regular rhythm and no murmurs GI non-distended GI Narrative: Reducible mildly tender ventral hernia. However patient is diffusely tender throughout his abdomen and areas not including hernia, with some mild rebound tenderness with percussion. There is a fluid wave but his abdomen is nice and soft and there is no significant distention and he is far from taught/tight. Auscultation: normoactive bowel sounds Palpation: soft Back/Spine no CVA tenderness General Back: other FROM Extremity normal to inspection General Extremety ED: Negative for edema, pulses abnormal or tenderness General Extremity: Negative for edema or pulses abnormal Neuro CN's II-XII intact bilaterally and no sensory deficits noted Neuro Narrative: Alert and oriented to person. Otherwise nonfocal neurologic exam. Sensorium / Orientation: awake, alert and orientation impaired Motor Exam: general weakness Skin no rashes or lesions noted and no wounds Skin Narrative: Mild diffuse jaundice MDM MDM MDM Narrative Medical decision making narrative: Briefly discussed resuscitation status. Family who states she is healthcare power of estate planning attorney and her is here as well, both are very insistent that he is a full code and they want everything done, as he is no longer on hospice and is not a DNR and wants to be resuscitated if needed. I do not have paperwork signed by the patient to states otherwise, so given this I think the patient needs a septic workup even though his vital signs are normal and this is more likely hepatic encephalopathy and hypoglycemia but it could be worse r elated to infections, and the condition that is present until proven otherwise is spontaneous bacterial peritonitis based on history and exam. Therefore I think he needs a diagnostic paracentesis, he does not seem to have a lot of fluid, so I do not think he needs a therapeutic drain, and given that there is not a lot of fluid I think this should be done by radiology who I discussed with. Radiology not available to perform a paracentesis today but they state they can in the morning if we admit him. I did a bedside ultrasound, there is not a large enough fluid pocket for me to feel comfortable performing a bedside paracentesis. The rest of his workup is noted. His blood sugar stabilized, 64, 108. Does not have a very high white count, however it is in the normal range at 8.7 and there is a little bit of a trend toward left shift but no bands. Lactate is normal, CT head on my interpretation shows nothing acute as confirmed radiology, same with 1 view chest x-ray nothing acute. Troponin normal, ammonia very high consistent with hepatic encephalopathy. I am treating him empirically for spontaneous bacterial peritonitis which I have high suspicion of given his pain and exam, with Rocephin 2 g and admitting him to the hospital. Urinalysis shows possibility of infection, I sent that for culture as part of the sepsis workup. I did do a CT of the abdomen/pelvis given the fact that he has peritonitis, cannot provide history, to ensure that he did not have anything else that would explain this. I reviewed the images and the result which I agree with, it is negative for anything else that should be causing peritonitis, hence my empiric treatment for SBP. Lab Data Attestation: I reviewed the patient's lab results. Labs: Laboratory Results - last 24 hr 04/18/25 04/18/25 04/18/25 15:07 15:25 16:47 WBC 8.7 RBC 3.39 L Hgb 10.2 L Hct 30.5 L MCV 90.0 MCH 30.1 MCHC 33.4 RDW Std Deviation 53.2 H RDW Coeff of Francis 16.3 H Plt Count 174 MPV 10.2 Immature Gran % (Auto) 0.600 Neut % (Auto) 77.1 H Lymph % (Auto) 12.1 L Barry % (Auto) 8.3 Eos % (Auto) 1.4 Baso % (Auto) 0.5 Absolute Neuts (auto) 6.7 Absolute Lymphs (auto) 1.05 Nucleated RBC % 0 PT 20.9 H INR 1.8 APTT 41.6 H Sodium 135 Potassium 4.5 Chloride 110 H Carbon Dioxide 17.2 L Anion Gap 8 BUN 12 Creatinine 0.97 Estim Creat Clear Calc 93.48 Est GFR (MDRD) Non-Af 90 BUN/Creatinine Ratio 12.3 Glucose 83 Lactic Acid 1.9 Calcium 8.4 Total Bilirubin 1.85 H Direct Bilirubin 1.15 H AST 46 H ALT 27 Alkaline Phosphatase 154 H Ammonia 97.2 H Troponin T High Sens 11 D Troponin T Hi Sens 2 Hr Total Protein 6.3 Albumin 2.6 L Globulin 3.8 Urine Color Urine Clarity Urine pH Ur Specific [place] Urine Protein Urine Glucose (UA) Urine Ketones Urine Occult Blood Urine Nitrite Urine Bilirubin Urine Urobilinogen Ur Leukocyte Esterase POC Glucose 64 L 108 H 04/18/25 04/18/25 16:55 17:40 WBC RBC Hgb Hct MCV MCH MCHC RDW Std Deviation RDW Coeff of Francis Plt Count MPV Immature Gran % (Auto) Neut % (Auto) Lymph % (Auto) Barry % (Auto) Eos % (Auto) Baso % (Auto) Absolute Neuts (auto) Absolute Lymphs (auto) Nucleated RBC % PT INR APTT Sodium Potassium Chloride Carbon Dioxide Anion Gap BUN Creatinine Estim Creat Clear Calc Est GFR (MDRD) Non-Af BUN/Creatinine Ratio Glucose Lactic Acid Calcium Total Bilirubin Direct Bilirubin AST ALT Alkaline Phosphatase Ammonia Troponin T High Sens Troponin T Hi Sens 2 Hr 12 Total Protein Albumin Globulin Urine Color Rocio Urine Clarity Turbid Urine pH 7.0 Ur Specific [place] 1.010 Urine Protein 100 H Urine Glucose (UA) Normal Urine Ketones Negative Urine Occult Blood 250 H Urine Nitrite Negative Urine Bilirubin Negative Urine Urobilinogen Normal Ur Leukocyte Esterase 500 H POC Glucose Radiography Diagnostic Testing: Clinical Impression(s) from Imaging Studies Brain CT 04/18/25 15:10 IMPRESSION: No acute intracranial abnormalities. Reading Location: [facility] Chest X-Ray 04/18/25 15:45 IMPRESSION: Bibasilar atelectasis with mild pulmonary congestion. No acute cardiopulmonary abnormality. Reading Location: [id number] Abdomen/Pelvis CT 04/18/25 17:34 IMPRESSION: Findings consistent with cirrhosis and small amount of ascites in the pelvis. Cholelithiasis. Stable left kidney staghorn stones with double-J catheter in place. No hydronephrosis. Reading Location: [facility] Rhythm Strip Rhythm Strip: Sinus Rhythm Rate: 80 Ectopy: None Management Discussion w/another healthcare provider: Hospitalist Discharge Plan Dx/Rx/DC Orders Clinical Impression: Peritonitis (acute) generalized, Hepatic cirrhosis, Hepatic encephalopathy Disposition Disposition: Acute Care [facility]
[2025-04-18 15:44] LABS: Hematocrit 30.5 % (40-54); Hemoglobin 10.2 g/dL (13.0-16.5); Immature Granulocytes Count 0.050 X10^3/uL (0.0-0.0); Mean Corp Hgb Conc 33.4 g/dL (32-36); Mean Corpuscular Volume 90.0 fL (80-94); Mean Platelet Vol. 10.2 fl (6.2-12.0); NRBC Flagged by Analyzer 0 % (0-5); Platelet Count 174 K/mm3 (150-450); RBC Distribution Width CV 16.3 % (11.6-14.6); RBC Distribution Width SD 53.2 fl (35.1-43.9); Red Blood Count 3.39 M/mm3 (4.6-6.2); White Blood Count 8.7 K/mm3 (4.4-11.0)
--- NOTE | 2025-04-18 15:45 | RAD_ITS ---
PROCEDURE: CHEST 1 VIEW (PORTABLE) 04/18/2025 REASON FOR EXAM: WEAKNESS, CONFUSION TECHNIQUE: Frontal view of the chest. COMPARISON: Chest x-ray 01/28/2025. FINDINGS: Hardware: Multiple monitoring leads overlying chest wall. Heart: Cardiomegaly. Lungs: Bibasilar atelectasis. Bones: The bones are unremarkable. Other: None RAD/Chest 1 View (Portable) IMPRESSION: Bibasilar atelectasis with mild pulmonary congestion. No acute cardiopulmonary abnormality. Reading Location: [id number]
[2025-04-18 16:00] VITALS: BP 105/65; PULSE 77; RESP 98; O2SAT 19
[2025-04-18 16:09] LABS: Anion Gap 8 (5-15); BUN 12 mg/dL (4-19); BUN/Creat Ratio 12.3 RATIO (10-20); Calcium,Total 8.4 mg/dL (7.6-11.0); Carbon Dioxide 17.2 mmol/L (21.0-32.0); Chloride 110 mmol/L (98-108); Estimated Creatinine Clearance 93.48 ml/min (50-250); Glucose 83 mg/dL (70-99); Potassium 4.5 mmol/L (3.3-5.1); Troponin T High Sensitivity 11 ng/L (<=22)
[2025-04-18 16:17] LABS: Ammonia 97.2 umol/L (16-60)
[2025-04-18 16:20] LABS: Prothrombin Time (Protime)PT. 20.9 SECONDS (11.7-14.9)
[2025-04-18 16:21] LABS: Partial Thromboplast Time 41.6 Seconds (24.1-36.2)
[2025-04-18 17:04] LABS: Mucous, Urine 0 SEEN /hpf (<or=2+)
[2025-04-18 17:22] LABS: AST(SGOT) 46 U/L (<=37); Alanine Aminotransfer ALT/SGPT 27 U/L (<=46); Albumin, Serum 2.6 g/dL (3.5-5.0); Alkaline Phosphatase 154 U/L (40-129); Bilirubin, Direct 1.15 mg/dL (0.00-0.30); Globulin 3.8 g/dL (2.2-4.2)
[2025-04-18 17:27] VITALS: BP 116/60; PULSE 68; RESP 18; O2SAT 100
[2025-04-18 17:27] LABS: Color, Urine Amber (Yellow); Glucose, Dipstick Normal (Normal); Ketone-Dipstick Negative (Negative); Leukocyte Esterase-Dipstick 500 /ul (Negative); Nitrite-Dipstick Negative (Negative); Occult Blood-Urine 250 /ul (Negative); Protein-Dipstick 100 mg/dl (Negative); Specific Gravity, Urine 1.010 (1.002-1.030); Urine Bilirubin Dipstick Negative (Negative)
--- NOTE | 2025-04-18 17:34 | CT_ITS ---
PROCEDURE: ABDOMEN/PELVIS WITHOUT CONT 04/18/2025 REASON FOR EXAM: PERITONITIS, CIRRHOSIS, UNABLE TO DO PARA NOW TECHNIQUE: Procedure Code: [id number] Modality: CT Procedure: ABDOMEN/PELVIS WITHOUT CONT Noncontrast technique limits evaluation of the abdominal and pelvic viscera. Coronal and Sagittal reconstruction series were provided. One or more dose reduction techniques were used (e.g., Automated exposure control, adjustment of the mA and/or kV according to patient size, use of iterative reconstruction technique). RADIATION DOSE SUMMARY: CTDlvol: 8.25 mGy DLP: 2431.64 mGycm COMPARISON: CT abdomen and pelvis February 13, 2025. FINDINGS: Lung bases: Clear. Atherosclerotic calcifications of the coronary arteries. Liver: Nodular contour consistent with cirrhosis. Gallbladder: Cholelithiasis. No biliary dilation. Spleen: Splenomegaly, 60 cm. Pancreas: Unremarkable. Adrenals: Unremarkable. Kidneys: Left kidney staghorn stone is stable. Left-sided double-J catheter in place. No right hydronephrosis. Bladder: Unremarkable. Reproductive Organs: Unremarkable. Bowel: No bowel obstruction. Dilation of the bowel loops consistent with ileus. Appendix: Unremarkable. Lymph nodes: No lymphadenopathy. Vasculature: No aneurysm. Atherosclerotic calcifications. Peritoneum / Retroperitoneum: Small amount of ascites in the pelvis. Bones: Persistent destructive changes at T11, T12 and L1. No new acute bony abnormalities. CT/Abdomen/Pelvis without Cont IMPRESSION: Findings consistent with cirrhosis and small amount of ascites in the pelvis. Cholelithiasis. Stable left kidney staghorn stones with double-J catheter in place. No hydrone phrosis. Reading Location: [facility]
[2025-04-18] MEDS: Ceftriaxone 2 GM in 0.9% Normal Saline (50mL MB+) 50 ML IV (17:41)
[2025-04-18 18:00] VITALS: BP 114/64; PULSE 71; RESP 16; O2SAT 100
[2025-04-18 18:21] LABS: Troponin T High Sens 2 HR 12 ng/L (<=22)
[2025-04-18 18:41] LABS: Squamous Epithelial Cells - UA 0-5 SEEN /hpf (0-5)
[2025-04-18 18:43] LABS: Red Blood Cells-Urine 50-100 SEEN /hpf (0-5)
[2025-04-18 18:49] VITALS: BP 125/71; PULSE 70; RESP 16; TEMP 36.6; O2SAT 100
--- NOTE | 2025-04-18 19:24 | PCM.HP.STD ---
HPI - General General Date of Admission: 04/18/25 Date of Service: 04/18/25 Chief Complaint: AMS, abdominal pain HPI Narrative FRANKLIN ARCHULETA, is a 59-year-old male history of hepatic cirrhosis, diabetes, portal vein thrombosis, staghorn colliculi presented [facility] ED 04/18/2025 for hypoglycemia. Reportedly he was on hospice but was taken off a couple of weeks ago after an indwelling paracentesis drain was accidentally pulled out. Today he presents with confusion, abdominal pain and hypoglycemia. The abdominal pain has been in the past couple of days and today he was more confused so they checked his blood sugar and was in the 30s so EMS called. In the ED temp 97.8, heart rate 95 and blood pressure 102/71, respiratory rate 18 and pulse ox 95% on room air. CBC with white count 8.7 and hemoglobin 10.2. BMP with a bicarb of 17.2 but a gap of 8, BUN 12 and a creatinine 0.97, liver profile with a total bili of 1.85, AST 46 and ALT 27, alk phos 154, glucose 64, lactic acid 1.9, INR 1.8, ammonia 97.2, was [address] head no acute process and chest x-ray with bibasilar atelectasis and mild pulmonary congestion. UA with leuk esterase, red cells, white cells, bacteria. CT abdomen pelvis with findings consistent with cirrhosis and small amount of ascites in the pelvis with stable left staghorn stones with double-J catheters in place with no hydronephrosis. Plan was to try to get a diagnostic paracentesis in the ED due to concerns for SBP however unable to do so, so patient given Rocephin and hospitalist contacted for admission for IV antibiotics and diagnostic paracentesis in the a.m. Patient evaluated at bedside. No family present so history taken from patient and report. Patient does endorse coming in because he was confused, he was able to say the year and that he was at the hospital but still admits to being a little bit confused though better than earlier, does note abdominal pain, he is unsure how much worse it is than usual but it is present, no changes in his bowels, notes he has been having hematuria again recently but cannot give me a timeline. Denies any fevers at home, did not endorse any other specific new or acute complaints at time my evaluation. [facility] Medical History Diffuse abdominal pain Acute hepatic encephalopathy Hyperammonemia Elevated liver enzymes Cirrhosis of liver with ascites Decompensated cirrhosis History of diabetes mellitus Chronic anemia VRE (vancomycin resistant enterococcus) culture positive Spinal stenosis, lumbar region with neurogenic claudication Umbilical hernia Chronic hyponatremia Weakness Diarrhea Sepsis Acidosis, lactic Acute hypotension Acute UTI Chronic hypotension Obesity (BMI 30-39.9) Chronic back pain ISABEL (acute kidney injury) Hypotension Hyperbilirubinemia Liver cirrhosis secondary to HARRIS (nonalcoholic steatohepatitis) HLD (hyperlipidemia) HTN (hypertension) Thrombocytopenia Chronic anemia Former tobacco use Diabetes mellitus, type 2 ABBY on CPAP Back pain Home Medications ?Medication ?Instructions ?Recorded ?Last Taken ?Type acetaminophen 500 mg tablet 1,000 mg PO Q8 PRN fever or pain 10/28/24 Unknown History cyclobenzaprine 10 mg tablet 10 mg PO QHS muscle relaxer 01/02/25 02/15/25 History pen needle, diabetic 31 gauge x #1,200 ea 01/31/25 Unknown Rx 12/17 (Pen Needle) insulin glargine-yfgn 100 unit/mL 30 unit subcut QHS blood glucose 03/10/25 Unknown History (3 mL) subcutaneous pen insulin lispro 100 unit/mL 20 unit subcut TIDAC 04/07/25 Unknown History subcutaneous pen (Humalog KwikPen (U-100) Insulin) metformin 500 mg tablet 500 mg PO QHS blood glucose 04/07/25 Unknown History oxycodone 5 mg tablet 5 mg PO TID PRN PRN dyspnea 04/07/25 Unknown History sodium bicarbonate 650 mg tablet 650 mg PO BID supplement 04/07/25 Unknown History ascorbic acid (vitamin C) 500 mg 500 mg PO BID supplement #60 tabs 04/10/25 Unknown Rx tablet carvedilol 3.125 mg tablet 6.25 mg (2 x 3.125 mg) PO BID BP 1 04/10/25 03/30/25 Rx month #60 tabs ferrous sulfate 325 mg (65 mg 325 mg PO QODAY supplement #30 tabs 04/10/25 Unknown Rx iron) tablet furosemide 40 mg tablet 40 mg PO DAILY diuresis 30 days 04/10/25 Unknown Rx #30 tabs lactulose 10 gram/15 mL oral 10 g (15 mL) PO 4XD liver 30 days 04/10/25 Unknown Rx solution #1 mL spironolactone 100 mg tablet 150 mg (1.5 x 100 mg) PO DAILY BP 04/10/25 Unknown Rx 30 days #45 tabs insulin lispro 100 unit/mL subcut blood glucose 04/18/25 Unknown History subcutaneous half-unit pen Allergy/AdvReac Type Severity Reaction Status Date / Time No Known Allergies Allergy Verified 04/18/25 14:58 Family History Mother Heart disease Hypertension CAD (coronary artery disease) Myocardial infarction Father Hypertension Heart disease Heart failure Surgical History History of tonsillectomy and adenoidectomy Social History household members: other details: Lives with his ex /her . Smoking Status: Former smoker how long ago did patient quit smoking: Quit Fall 2023, smoked 1.5 ppd since teen until quit. alcohol intake: never substance use type: does not use additional social history: EX and a friend help with his care. ROS ROS Narrative General: Denies fever/chills HENT: Denies headache, denies stuffy nose, denies sore throat EYES: Denies changes in vision Resp: Denies cough, denies shortness of breath Cardiac: Denies chest pain GI: Generalized abdominal pain, denies changes in bowel, denies nausea/vomiting : Denies changes in urination Extremity: Denies swelling MSK: Feels little bit generally weak Neuro: Denies any numbness/tingling, alert but confused Heme: Denies any bleeding or bruising Skin: Denies rashes Psychiatric: No complaints voiced Vital Signs Vital Signs Vital Signs: 04/18/25 14:55 04/18/25 15:10 04/18/25 15:31 Temperature 97.8 F Temperature Source Oral Pulse Rate 95 Respiratory Rate 18 Respiratory Effort Normal Non-Labored Blood Pressure 102/71 Blood Pressure Mean 81 Pulse Ox 95 Oxygen Delivery Method Room Air Room Air 04/18/25 16:00 04/18/25 17:27 04/18/25 18:00 Temperature Temperature Source Pulse Rate 77 68 71 Respiratory Rate 98 H 18 16 Respiratory Effort Blood Pressure 105/65 116/60 114/64 Blood Pressure Mean 78 78 80 Pulse Ox 19 100 100 Oxygen Delivery Method Room Air Room Air Room Air 04/18/25 18:49 Temperature 97.8 F Temperature Source Pulse Rate 70 Respiratory Rate 16 Respiratory Effort Blood Pressure 125/71 H Blood Pressure Mean 89 Pulse Ox 100 Oxygen Delivery Method Weight Weight: 93 kg Body Mass Index (BMI) 30.3 Physical Exam Narrative General: Awake and interactive, knew the year but still did not feel he was back to his baseline HEENT: Atraumatic, normocephalic Eyes: Anicteric, normal conjunctiva, extraocular movements grossly intact Neck: Supple Respiratory: Clear to auscultation bilaterally, normal respiratory effort Cardiovascular: Regular rate and rhythm GI: Soft, a little bit distended and diffusely tender, hypoactive bowel sounds Extremities: No significant pitting edema Musculoskeletal: Moving all extremities Neuro: No overt focal neurological deficits Skin: No rashes appreciated Psych: Cooperative Results Lab / Micro Data 04/18/25 15:25 04/18/25 15:25 Labs: Laboratory Results - last 24 hr 04/18/25 15:07: POC Glucose 64 L 04/18/25 15:25: WBC 8.7, RBC 3.39 L, Hgb 10.2 L, Hct 30.5 L, MCV 90.0, MCH 30.1, MCHC 33.4, RDW Std Deviation 53.2 H, RDW Coeff of Francis 16.3 H, Plt Count 174, MPV 10.2, Immature Gran % (Auto) 0.600, Neut % (Auto) 77.1 H, Lymph % (Auto) 12.1 L, [place] % (Auto) 8.3, Eos % (Auto) 1.4, Baso % (Auto) 0.5, Absolute Neuts (auto) 6.7, Absolute Lymphs (auto) 1.05, Nucleated RBC % 0, PT 20.9 H, INR 1.8, APTT 41.6 H, Sodium 135, Potassium 4.5, Chloride 110 H, Carbon Dioxide 17.2 L, Anion Gap 8, BUN 12, Creatinine 0.97, Estim Creat Clear Calc 93.48, Est GFR (MDRD) Non-Af 90, BUN/Creatinine Ratio 12.3, Glucose 83, Lactic Acid 1.9, Calcium 8.4, Total Bilirubin 1.85 H, Direct Bilirubin 1.15 H, AST 46 H, ALT 27, Alkaline Phosphatase 154 H, Ammonia 97.2 H, Troponin T High Sens 11 D, Total Protein 6.3, Albumin 2.6 L, Globulin 3.8 04/18/25 16:47: POC Glucose 108 H 04/18/25 16:55: Urine Color Rocio, Urine Clarity Turbid, Urine pH 7.0, Ur Specific [place] 1.010, Urine Protein 100 H, Urine Glucose (UA) Normal, Urine Ketones Negative, Urine Occult Blood 250 H, Urine Nitrite Negative, Urine Bilirubin Negative, Urine Urobilinogen Normal, Ur Leukocyte Esterase 500 H, Urine RBC 50-100 SEEN, Urine WBC 25-50 SEEN, Ur Squamous Epith Cells 0-5 SEEN, Urine Bacteria 1+, Urine Mucus 0 SEEN 04/18/25 17:40: Troponin T Hi Sens 2 Hr 12 Rhythm Strip Rhythm Strip: Sinus Rhythm Rate: 80 Ectopy: None Imaging Radiology Impression Brain CT 04/18/25 15:10 IMPRESSION: No acute intracranial abnormalities. Reading Location: [facility] Chest X-Ray 04/18/25 15:45 IMPRESSION: Bibasilar atelectasis with mild pulmonary congestion. No acute cardiopulmonary abnormality. Reading Location: [facility] Abdomen/Pelvis CT 04/18/25 17:34 IMPRESSION: Findings consistent with cirrhosis and small amount of ascites in the pelvis. Cholelithiasis. Stable left kidney staghorn stones with double-J catheter in place. No hydronephrosis. Reading Location: [facility] Assessment & Plan Assessment/Plan (1) Abdominal pain: (2) Urinary tract infection: PLAN: Plan # Abdominal pain with concern for SBP -Given patient's pain and altered mental status there was concern for SBP in the ED -Unable to get diagnostic paracentesis in the ED so was recommended for admission and ordered for the a.m. -This has been ordered with fluid studies -Unclear yield as patient is to be treated empirically with Rocephin but feel it is reasonable to proceed and given risks do feel empiric Rocephin to be continued -Albumin ordered given this concern but will give at the 0.5 g/kg body weight (50 g) as patient presently vitally stable and want to avoid volume overload # Altered mental status -Suspect multifactorial, patient came in with hypoglycemia and did seem to have improvement in mental status with correction of that -Additionally has been having hematuria and has UA suggestive of UTI and is currently being evaluated for SBP -He does not feel quite back to baseline, may be due to the above -Glucose checks -Empiric antibiotics while awaiting urine culture and diagnostic paracentesis -Ammonia is elevated at 97.2 but that is similar to previous and is actually down from 143 11 days ago -Continue home lactulose #Abnormal UA - UA with white cells, red cells, bacteria -Patient poor historian, difficulty to assess urinary complaints but does note hematuria started more recently -Patient being treated empirically with antibiotics as above -Await urine culture and sensitivity data # Hepatic cirrhosis -Labs similar to previous -Currently being worked up for possible SBP -Given albumin but at lower doses above, diuretics on hold for today -May be able to resume tomorrow if kidney function/patient stay stable -Lactulose -Daily weights, I's and O's - Will continue patient's beta-madison with hold parameters # History of portal vein thrombosis -Was previously on Lovenox however seems that this was discontinued due to anemia, he did not tolerate full dose anticoagulation #Type 2 diabetes mellitus - Patient with hypoglycemia, will need to decrease home insulin - Additionally glucose checks and sliding scale insulin # History of staghorn colliculi -Still present with stents on CT of abdomen -Has been unable to follow with Dr. Rascon due to insurance issues and was advised to follow-up with another provider #DVT ppx: SCDs Kathie Powers MD Charges/Coding Visit Charges Inpatient E&M: 05349 Init Hosp L2
[2025-04-18 20:08] VITALS: BMI 30.9
[2025-04-18 20:30] VITALS: BP 120/65; PULSE 82; RESP 18; TEMP 36.2; O2SAT 100
[2025-04-18 20:43] LABS: Troponin T High Sens 4 HR 13 ng/L (<=22)
[2025-04-18] MEDS: Insulin Glargine-YFGN 100 UNIT/ML Pen 15 UNIT SC (22:11)
[2025-04-18] MEDS: Albumin Human 25% (100 mL) 25 GM/100 ML BAG IV ×2 (22:13→23:54)
[2025-04-18] MEDS: Glucerna Shake 120 ML LIQUID PO (22:15)
--- OUTSIDE RECORDS SUMMARY | 2025-04-19 00:15 | XMS RPT_ITS | CCD ---
Author Organization 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 Delgado Attending Provider Dr. Danny Hutton DO Emergency Provider Dr. Luis Carlos Anderson DO Emergency Provider Mone HERNANDEZ, Dr. Maria Guadalupe Carlson Admit Provider [phone] Mone HERNANDEZ, Dr. Maria Guadalupe Carlson Referring Provider Mone HERNANDEZ, Dr. Maria Guadalupe Carlson Other Provider [phone] Rick Carlin DO Attending Provider Erin HERNANDEZ, Dr. Rocha Other Provider Zelalem HERNANDEZ, Dr. Coker Other Provider Dr. Christian Abdi MD Other Provider Dr. Juarez Baird MD Other Provider Dr. Bola Meraz DO Attending Provider Dr. Bola Meraz DO Other Provider Víctor HERNANDEZ, Dr. Hill Alcaraz Other Provider Ashli HERNANDEZ, Dr. Aguilar Other Provider Missael HERNANDEZ, Dr. Cotton Other Provider [phone] Ashely HERNANDEZ, Dr. Foote Other Provider Cassandra HERNANDEZ, Dr. Garvin Other Provider Yamil HERNANDEZ, Dr. Solis Other Provider [phone] Rojas HERNANDEZ, Dr. Enriquez Other Provider Seble HERNANDEZ, Dr. Hernández Other Provider [phone] Desmond HERNANDEZ, Dr. Snow Other Provider [...] Provider Nomi HERNANDEZ, Dr. Douglas Other Provider [phone] Dr. Anurag Irene MD Attending Provider Dr. Jae Ash DO Attending Provider Timbo NOYOLA, Dr. Shook Other Provider FRANCESCOKarmaDIANE Attending Provider BILLKarmaDIANE Referring Provider BILLTREY ParadaA Other Provider Bailee MERCHANDISING ASSISTANT-C, Jasmine Attending Provider Shaun HERNANDEZ, Dr. Campo [...] Raegan NOYOLA, Dr. Cabrera Attending Provider [phone] Erin HERNANDEZ, Dr. Rocha Other Provider Zelalem HERNANDEZ, Dr. Coker Other Provider Trinidad HERNANDEZ, Dr. Gonzales Other Provider Oli HERNANDEZ, Dr. Pizarro Other Provider Dr. Bola Meraz DO Attending Provider Dr. Bola Meraz DO Other Provider Víctor HERNANDEZ, Dr. Hill Alcaraz Other Provider Ashli HERNANDEZ, Dr. Aguilar Other Provider Missael HERNANDEZ, Dr. Cotton Other Provider [phone] Ashely HERNANDEZ, Dr. Foote Other Provider [phone] Cassandra HERNANDEZ, Dr. Garvin Other Provider Yamil [...] Dr. Jae Ash DO Other Provider [phone] Karena HERNANDEZ, Dr. Andre Other Provider Abiodun HERNANDEZ, Dr. Foster Rivas Other Provider Teto HERNANDEZ, Dr. Osborn Referring Provider Nomi HERNANDEZ, Dr. Douglas Other Provider [phone] Dr. Anurag Irene MD Attending Provider Dr. Jae Ash DO Attending Provider Dr. Boone Izquierdo DO Other Provider BILLTREY ParadaA Attending Provider BILLKarma DIANE Referring Provider BILLKarma, DIANE Other Provider Bailee MERCHANDISING ASSISTANT-C, Jasmine Attending Provider Shaun HERNANDEZ, Dr. Campo [...] Dr. Scott Weston DO Other Provider Elie MERCHANDISING ASSISTANT-C, Yue Other Provider Dr. Hill Caro DO Referring Provider Unav ailable Shila HERNANDEZ, Dr. Buster Barr Attending Provider Shila HERNANDEZ, Dr. Buster Barr Referring Provider Dr. Hill Acuña MD Attending Provider Unavaila priscila Powers MD, Dr. Vázquez Other Provider Unavailable Primary Care Provider Unavailyanick Carlson MD, Dr. Kevin Emergency Provider Dr. Jae Ash DO Admit Provider Gio HERNANDEZ, Dr. Vázquez Admit Provider Tannhof MERCHANDISING ASSISTANT-C, Josy Primary Care Provider Tannhof MERCHANDISING ASSISTANT-C, Josy Attending Provider KATHIE POWERS Referring Unavailable DAY PRICE Admitting Unavailable YOUNG CRUZ Attending Unavailable Care Physician, No Primary Primary Care Provider Unavailable Curt MERCHANDISING ASSISTANT-C, Josy Referring Provider Wei NOYOLA, Dr. Shook Emergency Provider Dr. Rick Carlin DO Other Provider Jen NOYOLA, Dr. Ureña Attending Provider Zelalem HERNANDEZ, Dr. Coker Other Provider Trinidad HERNANDEZ, Dr. Gonzales Other Provider Oli HERNANDEZ, Dr. Pizarro Other Provider Kt NOYOLA, Dr. Plaza Attending Provider Dr. Bola Meraz DO Other Provider Víctor HERNANDEZ, Dr. Hill Alcaraz Other Provider [phone] Ashli HERNANDEZ, Dr. Aguilar Other Provider Missael HERNANDEZ, Dr. Cotton Other Provider Ashely HERNANDEZ, Dr. Foote Other Provider Cassandra HERNANDEZ, Dr. Garvin Other Provider Yamil HERNANDEZ, Dr. Solis Other Provider [phone] Dr. Mina Xie MD Other Provider Seble HERNANDEZ, Dr. Hernández Other Provider [phone] Gwendolyn Logan MD Other Provider [facility]illocated within [facility] karma Venegas MD, Dr. Whyte Other Provider [...] Provider Dr. Gwendolyn Logan MD Other Provider [facility]illocated [facility] karma Mosher MD, Dr. Douglas Other Provider [phone] Theo HERNANDEZ, Dr. Whyte Other Provider Laurent HERNANDEZ, Dr. Raya Other Provider Angely HERNANDEZ, Dr. Silver Other Provider Jazmyne NOYOLA, Dr. Cuevas Other Provider Carmela HERNANDEZ, Dr. Tam Other Provider [phone] Gerardo Nobles MD, Dr. Kelly Other Provider Nuzhat NOYOLA, Dr. [...] Provider Teto HERNANDEZ, Dr. Osborn [facility] Ramos Emergency Provider Karena HERNANDEZ, Dr. Andre Other Provider Dr. Yaritza Leo DO Other Provider Frieda HERNANDEZ, Dr. Jefferson Marte Other Provider Lily HERNANDEZ, Dr. Maynard Other Provider Guy HERNANDEZ, Dr. Cielo Lan Other Provider [phone] Guy HERNANDEZ, Dr. Cielo Lan Referring Provider [...] Provider Kt NOYOLA, Dr. Plaza Attending Provider [phone] Kt NOYOLA, Dr. Plaza Other Provider Víctor HERNANDEZ, Dr. Hill Alcaraz Other Provider Ashli HERNANDEZ, Dr. Aguilar Other Provider Missael HERNANDEZ, Dr. Cotton Other Provider [phone] Ashely HERNANDEZ, Dr. Foote Other Provider [phone] Cassandra HERNANDEZ, Dr. Garvin Other Provider Yamil HERNANDEZ, Dr. Solis Other Provider Rojas HERNANDEZ, Dr. Enriquez Other Provider Seble HERNANDEZ, Dr. Hernández Other Provider Desmond HERNANDEZ, Dr. Snow Other Provider Unavailabl karma Mosher MD, Dr. Douglas Other Provider [phone] Theo HERNANDEZ, Dr. Whyte Other Provider Laurent HERNANDEZ, Dr. Raya Other Provider [phone] Angely HERNANDEZ, Dr. Silver Other Provider Jazmyne NOYOLA, Dr. Cuevas Other Provider [phone] Carmela HERNANDEZ, Dr. Tam Other Provider [phone] Mallorie HERNANDEZ, Dr. Kelly Other Provider [phone] Kenneth Noland DO Other Provider Rosendo [...] Provider Sherrie HERNANDEZ, Dr. Ca Attending Provider [phone] Curt MERCHANDISING ASSISTANT-C, Josy Primary Care Provider Curt MERCHANDISING ASSISTANT-C, Josy Attending Provider Shila HERNANDEZ, Dr. Buster Barr Other Provider Domenico HERNANDEZ, Dr. Alejandre Attending Provider Unavaila ble Domenico HERNANDEZ, Dr. Alejandre Other Provider Unavailable Teto HERNANDEZ, [...] Provider Sherrie HERNANDEZ, Dr. Ca Referring Provider [phone] Sherrie HERNANDEZ, Dr. Ca Other Provider Ruddy HERNANDEZ, Dr. Garcia Emergency Provider Marisel NOYOLA, Dr. Ramos Emergency Provider Mone HERNANDEZ, Dr. Maria Guadalupe Carlson Attending Provider Mone HERNANDEZ, Dr. Maria Guadalupe Carlson Admit Provider Mone HERNANDEZ, Dr. Maria Guadalupe Carlson Admit Provider Mone HERNANDEZ, Dr. Maria Guadalupe Carlson Other Provider Jae Ash Admitting Unavailable Jen, Niranjan Attending Unavailable Josy Elias Primary Care Unavailable Jae Ash Consulting Unavailable Anurag Irene Referring Unavailable Friend, Niranjan Consulting Unavailable Anurag Irene Consulting Unavailable Maria Guadalupe Shore Consulting Unavailable Rick Carlin Attending Unavailable Maria Guadalupe Shore Referring Unavailable WhiteMaria Guadalupe L Admitting Unavailable Care Physician, No Primary Primary Care Unava ilable Erin, Jayaprakas Consulting Unavailable Rick Carlin Consulting Unavailable JenRavin Attending Unavailable [facility] Unavailable Guy, Cielo Edyta Attending Unavailable Yaritza Leo Consulting Unavailable Yaritza Leo Admitting Unavailable [facility] Primary Care Unavailable Jefferson Malave Consulting Unavailable Koram, Cielo Edyta Consulting Unavailable Jefferson Malave Attending Unavailable Teto, Anurag Referring Unavailable Koram, Cielo Edyta Referring Unavailable Bola Meraz Attending Unavailable Adonis Masterson Consulting Unavailable Christian Abdi Consulting Unavailable [...] Robbins Consulting Unavailable Young Richardson Consulting Unavailable [facility] Primary Care Unavailable Maria Guadalupe Shore Consulting Unavailable Maria Guadalupe Shore Admitting Unavailable Teto, Anurag Attending Unavailable Rick Carlin Consulting Unavailable Teto, Anurag Consulting Unavailable Rick Carlin Attending Unavailable [facility] Primary Care Unavailable Maria Guadalupe Shore Attending Unavailable Buster Fuchs Consulting Unavailable Buster Fuchs Admitting Unavailable Buster Fuchs Attending Unavailable [facility] Primary Care Unavailable Kathie Powers Consulting Unavailable Kathie Powers Admitting Unavailable Care Physician, No Primary Primary Care Unava ilable Hill Acuña Attending Unavailable Thai Thurston Consulting Unavailable Hill Acuña Consulting Unavailable Kathie Powers Attending Unavailable Jae Ash Consulting Unavailable Care Physician, No Primary Primary Care Unava ilable Mosteller, Jae Admitting Unavailable Teto, Anurag Attending Unavailable Teto, Anurag Consulting Unavailable Mosteller, Jae Consulting Unavailable Care Physician, No Primary Primary Care Unava ilable Mosteller, Jae Admitting Unavailable Teto, Anurag Attending Unavailable Teto, Anurag Consulting Unavailable Tannhof, Josy Referring Unavailable Tannhof, Josy Primary Care Unavailable Tannhof, Josy Attending Unavailable Kathie Powers Attending Unavailable Tannhof, Josy Primary Care Unavailable Jae Ash Attending Unavailable Sherwood, Jerald Primary Care Unavailable Teto, Anurag Attending Unavailable Nilsa, Jae Attending Unavailable ADONIS HART Referring Unavailable ADONIS HART Consulting Unavailable Care Physician, No Primary Primary Care Unava ilable Bailee MERCHANDISING ASSISTANT, Jasmine Attending Unavailable Mina Blood Consulting Unavailable Mar Lopez Attending Unavailable AndMina coronado Referring Unavailable Sherwood, Jerald Primary Care Unavailable AndMina coronado Referring Unavailable Mina Blood Attending Unavailable Sherwood, Jerald Primary Care Unavailable Yaritza Leo Attending Unavailable Boone Izquierdo Consulting Unavailable Boone Izquierdo Admitting Unavailable Sherwood, Jerald Primary Care Unavailable Boone Izquierdo Attending Unavailable Hill Caro Consulting Unavailable Hill Caro Admitting Unavailable Care Physician, No Primary Primary Care Unava ilable Teto, Anurag Consulting Unavailable Nilsa, Jae Consulting Unavailable Thai Thurston Consulting Unavailable Josefina Khan Consulting Unavailable Foster Rascon Consulting Unavailable Mostedvin, Jae Consulting Unavailable Tannhof, Josy Primary Care Unavailable Mostedvin, Jae Admitting Unavailable Teto, Anurag Attending Unavailable Jen, Niranjan Consulting Unavailable Tannhof, Josy Primary Care Unavailable Alber Dunn Attending Unavailable Luis Carlos Anderson Attending Unavailable Sherwood, Jerald Primary Care Unavailable Mina Blood Attending Unavailable Sherwood, Jerald Primary Care Unavailable Danny Hutton Attending Unavailabl e Care Physician, No Primary Primary Care Unava ilable Tannhof, Josy Referring Unavailable Tannhof, Josy Primary Care Unavailable Julita Glover Attending Unavailable Tannhof, Josy Consulting Unavailable ADONIS HART Referring Unavailable ADONIS HART Attending Unavailable Care Physician, No Primary Primary Care Unava ilable ADONIS HART Attending Unavailable ADONIS HART Referring Unavailable Care Physician, No Primary Primary Care Unava ilable Yaritza Leo Consulting Unavailable Yaritza Leo Admitting Unavailable Josy Elias Primary Care Unavailable Anurag Irene Attending Unavailable Jefferson Malave Consulting Unavailable Aleyda Bautista Consulting Unavailable Cielo Tovar Consulting Unavailable Rick Carlin Attending Unavailable White, Maria Guadalupe L Admitting Unavailable White, Maria Guadalupe L Referring Unavailable Care Physician, No Primary Primary Care Unava ilable Maria Guadalupe Shore Consulting Unavailable Josefina Khan Consulting Unavailable Kathie Powers Attending Unavailable Hill Caro [...] Consulting Unavailable Elie ROSA, Yue Consulting Unavailable Jae Ash Admitting Unavailable Jae Ash Consulting Unavailable Anurag Irene Attending Unavailable Care Physician, No Primary Primary Care Unava ilable Kathie Powers Admitting Unavailable Kathie Powers Consulting Unavailable Care Physician, No Primary Primary Care Unava ilable Hill Acuña Attending Unavailable Thai Thurston Consulting Unavailable Curt, Josy Primary Care Unavailable Jose Fox Attending Unavailable Buster Fuchs Attending Unavailable Adonis Masterson Consulting Unavailable Hill Caro Admitting Unavailable Care [...] Unavailable Buster Fuchs Consulting Unavailable Buster Fuchs Referring Unavailable Niranjan Li Attending Unavailable Bola Meraz Attending Unavailable Hill Caro Referring Unavailable Hill Caro Attending Unavailable Boone Izquierdo Attending Unavailable Hill Caro Consulting Unavailable Hill Caro Admitting Unavailable Care Physician, No Primary Primary Care Unava ilable Anurag Irene Consulting Unavailable Jae Ash Consulting Unavailable Thai Thurston Consulting Unavailable Josefina Khan Consulting Unavailable Foster Rascon Consulting Unavailable Boone Izquierdo Consulting Unavailable Jae Ash Attending Unavailable Hill Acuña Attending Unavailable Hill Acuña Consulting Unavailable Adonis Masterson Consulting Unavailable Christian Abdi Consulting Unavailable [...] Robbins Consulting Unavailable Young Richardson Consulting Unavailable Kathie Powers Attending Unavailable Hill Herrmann Consulting Unavailable Blair Cage Consulting Unavailable Thiago Wray Consulting Unavailable Gabbi Hughes Consulting Unavailable Thai Godfrey Consulting Unavailable Juan Daniel Garza Consulting Unavailable Zachariah Glover Consulting Unavailable Scott Weston Consulting Unavailable Yue Delgadillo NP Consulting Unavailable Kathie Powers Consulting Unavailable Yaritza Leo Attending Unavailable Hill Acuña Attending Unavailable Hill Acuña Consulting Unavailable Roby Balderas Attending Unavailable Josy Elias Primary Care Unavailable Josy Elias Referring Unavailable Anurag Irene Attending Unavailable Boone Carvajal Attending Unavailable Josy Elias Primary Care Unavailable Kathie Powers Consulting Unavailable Kathie Powers Admitting Unavailable [facility] Primary Care Unavailable Rick Carlin Attending Unavailable Rick Carlin Consulting Unavailable Mina Blood Attending Unavailable [facility] Care Unavailable Jen Niranjan Attending Unavailable Rick Carlin Referring Unavailable Aleyda Bautisat Consulting Unavailable Roby Balderas Consulting Unavailable Roby Balderas Attending Unavailable Roby Balderas Referring Unavailable [facility] Care Unavailable Nelida Harris Attending Unavailable [facility] Primary Care Unavailable Jerald Sherwood Referring Unavailable [facility] Primary Care Unavailable [facility] Referring Unavailable Anurag Irene Attending Unavailable Boone Izquierdo Admitting Unavailable Boone Izquierdo Consulting Unavailable Yaritza Leo Attending Unavailable [facility] Care Unavailable Yaritza Leo Consulting Unavailable Boone Izquierdo Attending [facility] Anurag Irene Attending Unavailable Anurag Irene Consulting Unavailable Bola Meraz Attending Unavailable Anurag Irene Referring Unavailable Adonis Masterson Consulting Unavailable Christian Abdi Consulting Unavailable [...] Consulting Unavailable Anel Casey Consulting Unavailable Robin oNbles Consulting Unavailable Kenneth Noland Consulting Unavailable Lupillo Robbins Consulting Unavailable Young Richardson Consulting Unavailable Hill Caro Attending Unavailable [facility] Care Unavailable Marai Guadalupe Shore Admitting Unavailable Maria Guadalupe Shore Consulting Unavailable Anurag Irene Attending Unavailable Rick Carlin Consulting Unavailable Kathie Powers Admitting Unavailable Kathie Powers Consulting Unavailable [facility] Primary Care Unavailable Rick Carlin Attending Unavailable Buster Fuchs Consulting Unavailable Buster Fuchs Admitting Unavailable Josy Elias Primary Care Unavailable Hill Acuña Attending Unavailable Bola Meraz Attending Unavailable Maria Guadalupe Shore Attending Unavailable Roby Balderas Referring Unavailable Roby Balderas Attending Unavailable Josy Elias Primary Care Unavailable ADONIS HART Referring Unavailable ADONIS HART Attending Unavailable Curt Josy Primary Care Unavailable Jerald Sherwood Attending Unavailable Jerald Sherwood Referring Unavailable Jerald Sherwood Primary Care Unavailable Medications Current Medications Medication Drug Class(es) Dates Sig (Normalized) Sig (Original) acetaminophen 500 mg oral tablet (20 sources) Start: 09-14-2024 End: 10-28-2024 Acetaminophen 50 0 mg cap Take by mouth. Active ascorbic acid 500 mg oral ta blet (18 sources) Vitamin C Start: 04-10-2025 Start: 11-25-2024 End: 03-10-2025 carvedilol 3.125 mg oral tab let (5 sources) alpha-Adrenergic Tracey, beta-Adrenergic Tracey Start: 02-17-2025 End: 04-10-2025 cyclobenzaprine hydrochlorid e 10 mg oral tablet [...] (20 sources) Loop Diuretic Start: 02-17-2025 End: 04-10-2025 Start: 11-18-2024 End: 02-17-2025 Start: 10-28-2024 End: [...] 11/03/2024 Active take 2 tablets by mo [facility] once daily furosemide (LASIX) 20 mg tablet Take 40 mg by mouth once daily. Suspended metFORMIN hydrochloride 500 mg oral tablet (20 sources) Biguanide Start: 04-07-2025 Start: 11-21-2024 End: 03-30-2025 Start: 11-18-2024 [facility] metFORMIN ER (GLUMETZA) [...] preference? Yes take 1 capsule by mo [facility] every six hours as needed [...] (20 sources) Aldosterone Antagonist Start: 01-21-2025 End: 04-10-2025 Start: 01-21-2025 End: 02-16-2025 Start: 11-21-2024 End: [...] tablet 3 11/18/2024 Active (20 sources) Start: 04-10-2025 Start: 03-10-2025 Start: 02-27-2025 End: 03-10-2025 Start: [...] 2024 6:37pm apixaban 5 mg oral tablet (18 sources) Factor Xa Inhibitor Start: 11-21-2024 End: 11-25-2024 atorvastatin 40 mg oral tabl et (18 sources) HMG-CoA Reductase Inhibitor Start: 11-21-2024 End: 03-10-2025 calcium carbonate 1250 mg / cholecalciferol 200 unt oral tablet (20 sources) Vitamin D Start: 10-28-2024 End: 03-10-2025 cephalexin 500 mg oral capsu le (14 sources) Cephalosporin Antibacterial Start: 12-30-2024 End: 01-05-2025 ciprofloxacin 500 mg oral ta blet (4 sources) Quinolone Antimicrobial Start: 02-27-2025 End: 04-07-2025 [...] Active fluconazole 200 mg oral tabl et (20 sources) Azole Antifungal Start: 11-18-2024 End: 11-27-2024 [...] pain. Suspended imiquimod 50 mg/ml topical cream (17 sources) Start: 12-02-2024 End: 12-30-2024 Insulin Glargine-Yfgn [...] (20 sources) Osmotic Laxative Start: 11-21-2024 End: 04-10-2025 Start: 11-18-2024 take 60 mL by mouth [...] MD. Active linezolid 600 mg oral tablet (8 sources) Oxazolidinone Antibacterial Start: 01-31-2025 End: 02-16-2025 magnesium oxide 400 mg oral tablet (18 sources) Start: 11-21-2024 End: 03-10-2025 midodrine hydrochloride [...] 1 dose nadolol 20 mg oral tablet (12 sources) beta-Adrenergic Tracey Start: 01-02-2025 End: 01-21-2025 omeprazole 20 mg delayed release oral capsule (9 sources) Proton Pump Inhibitor Start: 01-28-2025 End: [...] 20 meq ex tended release oral tablet (6 sources) Start: 03-10-2025 End: 03-30-2025 rifAXIMin 550 mg oral tablet (20 sources) Rifamycin Antibacterial Start: 09-02-2024 End: 03-10-2025 vancomycin 125 mg oral capsu le (17 sources) Glycopeptide Antibacterial Start: 12-02-2024 End: 01-05-2025 zinc sulfate 220 mg oral tab let (20 sources) Start: 11-21-2024 End: 03-10-2025 Start: 11-18-2024 take 1 capsule by mo [facility] once daily zinc sulfate 220 [...] Onset: 11-11-2024 Episodic Deficiency and other anemia (10 sources) Chronic anemia; Translations: [Anemia, unspecified] 02-16-2025 Episodic Diabetes mellitus with complications (1 source) Type 2 diabetes mellitus with hyperglycemia; Translations: [Type 2 diabetes mellitus with hyperglycemia] Onset: 03-15-2025 Chronic Diabetes mellitus without complication (20 sources) Insulin treated type 2 diabetes mellitus; Translations: [Type 2 diabetes mellitus without complications] 12-30-2024 Chronic Diabetes mellitus without complication (17 sources) Hyperglycemia; Translations: [Hyperglycemia, unspecified] 12-30-2024 Episodic Diseases of white blood cells (20 sources) Leukocytosis; Translations: [Elevated white blood cell count, unspecified] Onset: 01-26-2025 09-23-2024 Chronic Genitourinary symptoms and ill-defined conditions (20 sources) Blood in urine; Translations: [Hematuria, unspecified] Onset: 01-31-2025 11-21-2024 Episodic Hepatitis (20 sources) Cirrhosis - non-alcoholic; 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 (BOYER)] Onset: 09-17-2024 09-23-2024 Chronic Other aftercare (1 source) Encounter for other [...] sources) Hepatic encephalopathy; Translations: [Hepatic encephalopathy] Onset: 04-10-2025 09-10-2024 Episodic Other liver diseases (13 sources) Elevated liver enzymes level; Translations: [Abnormal levels of other serum enzymes] 02-16-2025 Episodic Other liver diseases (8 sources) Decompensated cirrhosis of liver; Translations: [Hepatic failure, unspecified without coma] 02-16-2025 Episodic Other liver diseases (2 sources) Abnormal levels of other serum enzymes; Translations: [Abnormal levels of other serum enzymes] Onset: 03-16-2025 Episodic Other liver diseases (1 source) Hepatic [...] Chronic Other nutritional; endocrine; and metabolic disorders (13 sources) Hyperammonemia; Translations: [Disorder of urea cycle metabolism, unspecified] 02-16-2025 Chronic Other nutritional; endocrine; and metabolic disorders (1 source) Disorder of urea cycle metabolism, unspecified; Translations: [Disorder of urea cycle metabolism, unspecified] Onset: 03-23-2025 Chronic Other nutritional; endocrine; and metabolic disorders (1 source) Obesity, unspecified; Translations: [Obesity, unspecified] Onset: 09-17-2024 Chronic Other nutritional; endocrine; and metabolic disorders (10 sources) H/O: diabetes mellitus; Translations: [Personal history of other endocrine, nutritional and metabolic disease] 02-16-2025 Episodic Other nutritional; endocrine; and metabolic disorders (3 sources) History of diabetes mellitus type 2; [...] edema] Onset: 10-04-2024 Episodic Residual codes; unclassified (2 sources) Altered mental status; Translations: [Altered mental status, unspecified] 04-03-2025 Episodic Residual codes; unclassified (1 source) Altered mental status, unspecified; Translations: [Altered mental status, unspecified] Onset: 04-14-2025 Episodic Septicemia (except in labor) (20 sources) [...] [Calculus of kidney] Onset: 09-17-2024 09-05-2024 Episodic E Codes: Fall (20 sources) Fall; Translations: [...] Onset: 11-11-2024 09-05-2024 Episodic Nonspecific chest pain (15 sources) Chest pain; Translations: [Chest pain, unspecified] Onset: 01-06-2025 12-30-2024 Episodic Other circulatory disease (1 source) Hypotension, [...] Range Facility Absolute lymphocyte countOrd ered By: Anurag Irene on 04-10-2025 Lymphocytes Auto (Unsp spec) [#/Vol] 1.25 10*3/uL 0.83-4.51 [facility] Anion gap in Serum or Plasma Ordered By: Anurag Irene on 04-10-2025 Anion gap [Moles/Vol] 9 mmol/L 5-15 [facility] Automated lymphocyte count a s percentage of total leukocytesOrdered By: Anurag Irene on 04-10-2025 Lymphocytes/100 WBC Auto (Unsp spec) 19.5 % 19-41 [facility] BUN/creatinine ratioOrdered By: Anurag Irene on 04-10-2025 Urea nitrogen/Creatinine [Mass ratio] 7.4 mg/mg Low 10-20 [facility] [facility] Basophil percentageOrdered B y: Anurag Irene on 04-10-2025 Basophils/100 WBC (Bld) 0.3 % 0-1 [facility] Bedside Glucoseon 04-10-2025 FINGERSTICK GLU 220 mg/dL High 74-106 [facility] Comment on above: Result Comment: BRISA GEMENT OF PATIENT CARE PER NURSING PROTOCOL Performed By: #### L 501.080 ####[facility] [address] [place], [address] FINGERSTICK GLU 189 mg/dL High 74-106 [facility] Comment on above: Result Comment: BRISA GEMENT OF PATIENT CARE PER NURSING PROTOCOL Performed By: #### L 501.080 ####[facility] [address] [place], [address] Bilirubin, totalOrdered By: Anurag Irene on 04-10-2025 Bilirubin [Mass/Vol] 1.38 mg/dL High 0.00-1.30 [facility] CBC W/Diff, Automatedon Absolute Lymph 1.25 X10 3/uL Normal 0.83-4.51 [facility] Comment on above: Performed By: #### L 500.4050, L100.0100 ####[facility] [address] [place], [address] Absolute Neut 4.0 X10 3/uL Normal 2.0-7.7 [facility] Comment on above: Performed By: #### L 500.4050, L100.0100 ####[facility] [address] [place], [address] Basophils/100 WBC (Bld) 0.3 % Normal 0-1 [facility] Comment on above: Performed By: #### L 500.4050, L100.0100 ####[facility] [address] [place], [address] Eosinophils/100 WBC (Bld) 6.2 % High 0-5 [facility] Comment on above: Performed By: #### L 500.4050, L100.0100 ####[facility] [address] [place], [address] Erythrocyte distribution width (RBC) [Ratio] 15.5 % High 11.6-14.6 [facility] Comment on above: Performed By: #### L 500.4050, L100.0100 ####[facility] [address] [place], [address] Hematocrit (Bld) [Volume fraction] 22.2 % Low 40-54 [facility] Comment on above: Performed By: #### L 500.4050, L100.0100 ####[facility] [address] [place], [address] Hemoglobin (Bld) [Mass/Vol] 7.6 g/dL Low 13.0-16.5 [facility] Comment on above: Performed By: #### L 500.4050, L100.0100 ####[facility] [address] [place], [address] IG% 0.600 Normal 0.0-0.9 [facility] Comment on above: Result Comment: IG% - Immature Granulocytes (promyelocytes, myelocytes andmetamyelocytes) > 1% indicates that a LEFT SHIFT is Present. Performed By: #### L 500.4050, L100.0100 ####[facility] [address] [place], [address] Lymphocytes/100 WBC (Bld) 19.5 % Normal 19-41 [facility] Comment on above: Performed By: #### L 500.4050, L100.0100 ####[facility] [address] [place], [address] MCH (RBC) [Entitic mass] 30.3 pg Normal 27.0-32.0 [facility] Comment on above: Performed By: #### L 500.4050, L100.0100 ####[facility] [address] [place], [address] MCHC (RBC) [Mass/Vol] 34.2 g/dL Normal 32-36 [facility] Comment on above: Performed By: #### L 500.4050, L100.0100 ####[facility] [address] [place], [address] MCV (RBC) [Entitic vol] 88.4 fL Normal 80-94 [facility] Comment on above: Performed By: #### L 500.4050, L100.0100 ####[facility] [address] [place], [address] Monocytes/100 WBC (Bld) 10.6 % High 0-10 [facility] Comment on above: Performed By: #### L 500.4050, L100.0100 ####[facility] [address] [place], [address] Neutrophils/100 WBC (Bld) 62.8 % Normal 47-70 [facility] Comment on above: Performed By: #### L 500.4050, L100.0100 ####[facility] [address] [place], [address] Nucleated RBC (Bld) [#/Vol] 0 10*3/uL Normal 0-5 [facility] Comment on above: Performed By: #### L 500.4050, L100.0100 ####[facility] [address] [place], [address] Platelet mean volume (Bld) [Entitic vol] 11.1 fL Normal 6.2-12.0 [facility] Comment on above: Performed By: #### L 500.4050, L100.0100 ####[facility] [address] [place], [address] Platelets (Bld) [#/Vol] 114 10*3/uL Low 150-450 [facility] Comment on above: Performed By: #### L 500.4050, L100.0100 ####[facility] [address] [place], [address] RBC (Bld) [#/Vol] 2.51 10*6/uL Low 4.6-6.2 [facility] Comment on above: Performed By: #### L 500.4050, L100.0100 ####[facility] [address] [place], [address] RDW SD 49.1 fl High 35.1-43.9 [facility] Comment on above: Performed By: #### L 500.4050, L100.0100 ####[facility] [address] [place], [address] WBC (Bld) [#/Vol] 6.4 10*3/uL Normal 4.4-11.0 [facility] Comment on above: Performed By: #### L 500.4050, L100.0100 ####[facility] [address] [place], [address] Carbon dioxide, total [Moles /volume] in Central venous bloodOrdered By: Anurag Irene on 04-10-2025 CO2 [Moles/Vol] 17.8 mmol/L Low 21.0-32.0 [facility] Chloride assayOrdered By: Francois Irene on 04-10-2025 Chloride [Moles/Vol] 107 mmol/L 98-108 [facility] Comprehensive Metabolic Prof ilon 04-10-2025 Albumin [Mass/Vol] 2.0 g/dL Low 3.5-5.0 [facility] Comment on above: Performed By: #### L 500.4050, L100.0100 ####[facility] [address] [place], [address] Albumin/Globulin [Mass ratio] 0.7 {ratio} Low 0.9-2.4 [facility] Comment on above: Performed By: #### L 500.4050, L100.0100 ####[facility] [address] [place], [address] ALK PHOS 140 U/L High 40-129 [facility] Comment on above: Performed By: #### L 500.4050, L100.0100 ####[facility] [address] [place], [address] ALT [Catalytic activity/Vol] 22 U/L Normal <=46 [facility] Comment on above: Performed By: #### L 500.4050, L100.0100 ####[facility] [address] [place], [address] AST [Catalytic activity/Vol] 37 U/L Normal <=37 [facility] Comment on above: Performed By: #### L 500.4050, L100.0100 ####[facility] [address] [place], [address] Bilirubin [Mass/Vol] 1.38 mg/dL High 0.00-1.30 [facility] Comment on above: Performed By: #### L 500.4050, L100.0100 ####[facility] [address] [place], [address] BUN/CRE 7.4 RATIO Low 10-20 [facility] Comment on above: Performed By: #### L 500.4050, L100.0100 ####[facility] [address] [place], [address] Calcium [Mass/Vol] 8.1 mg/dL Normal 7.6-11.0 [facility] Comment on above: Performed By: #### L 500.4050, L100.0100 ####[facility] [address] [place], [address] Chloride [Moles/Vol] 107 mmol/L Normal 98-108 [facility] Comment on above: Performed By: #### L 500.4050, L100.0100 ####[facility] [address] [place], [address] CO2 [Moles/Vol] 17.8 mmol/L Low 21.0-32.0 [facility] Comment on above: Performed By: #### L 500.4050, L100.0100 ####[facility] [address] [place], [address] Creatinine [Mass/Vol] 1.16 mg/dL Normal 0.70-1.20 [facility] Comment on above: Performed By: #### L 500.4050, L100.0100 ####[facility] [address] [place], [address] ECRCL 80.17 ml/min Normal 50-250 [facility] Comment on above: Performed By: #### L 500.4050, L100.0100 ####[facility] [address] [place], [address] GAP 9 Normal 5-15 [facility] Comment on above: Performed By: #### L 500.4050, L100.0100 ####[facility] [address] [place], [address] GFR/1.73 sq M.predicted among non-blacks MDRD (S/P/Bld) [Vol rate/Area] 73 mL/min/{1.73_m2} Normal >60 [facility] Comment on above: Result Comment: mL/m in/1.73m2 CKD-EPI Creatinine Equation (2020) Performed By: #### L 500.4050, L100.0100 ####[facility] [address] [place], [address] Globulin (S) [Mass/Vol] 3.0 g/dL Normal 2.2-4.2 [facility] Comment on above: Performed By: #### L 500.4050, L100.0100 ####[facility] [address] [place], [address] Glucose [Mass/Vol] 199 mg/dL High 70-99 [facility] Comment on above: Performed By: #### L 500.4050, L100.0100 ####[facility] [address] [place], [address] Potassium [Moles/Vol] 3.3 mmol/L Normal 3.3-5.1 [facility] Comment on above: Performed By: #### L 500.4050, L100.0100 ####[facility] [address] [place], [address] Sodium [Moles/Vol] 134 mmol/L Normal 133-145 [facility] Comment on above: Performed By: #### L 500.4050, L100.0100 ####[facility] [address] [place], [address] T PROT 4.9 g/dL Low 5.9-8.4 [facility] Comment on above: Performed By: #### L 500.4050, L100.0100 ####[facility] [address] [place], [address] Urea nitrogen [Mass/Vol] 9 mg/dL Normal 4-19 [facility] Comment on above: Performed By: #### L 500.4050, L100.0100 ####[facility] [address] [place], [address] Discharge Instructionon 09-0 Discharge Instruction Normal [facility] Eosinophil percentageOrdered By: Anurag Irene on 04-10-2025 Eosinophils/100 WBC (Bld) 6.2 % High 0-5 [facility] Erythrocyte distribution wid th ratioOrdered By: Anurag Irene on 04-10-2025 Erythrocyte distribution width (RBC) [Ratio] 15.5 % High 11.6-14.6 [facility] Erythrocyte distribution wid th standard deviationOrdered By: Anurag Irene on 04-10-2025 Erythrocyte distribution width (RBC) [Ratio] 49.1 fl High 35.1-43.9 [facility] Glomerular filtration rate ( GFR) estimation/1.73 sq m using serum, plasma, or whole bOrdered By: Anurag Irene on 04-10-2025 GFR/1.73 sq M.predicted among non-blacks MDRD (S/P/Bld) [Vol rate/Area] 73 mL/min/{1.73_m2} >60 [facility] deOrdered By: Anurag Irene on 04-10-2025 Glucose [Mass/Vol] 220 mg/dL High 74-106 [facility] Hematocrit Auto (Bld) [Volum e fraction]Ordered By: Anurag Irene on 04-10-2025 Hematocrit (Bld) [Volume fraction] 22.2 % Low 40-54 [facility] Hemoglobin measurementOrdere d By: Anurag Irene on 04-10-2025 Hemoglobin (Bld) [Mass/Vol] 7.6 g/dL Low 13.0-16.5 [facility] Immature granulocytes/100 WB C Auto (Bld)Ordered By: Anurag Irene on 04-10-2025 Immature granulocytes/100 WBC (Bld) 0.600 % 0.0-0.9 [facility] MCV (mean corpuscular volume ) determinationOrdered By: Anurag Irene on 04-10-2025 MCV (RBC) [Entitic vol] 88.4 fL 80-94 [facility] Mean corpuscular hemoglobin (MCH) determinationOrdered By: Anurag Irene on 04-10-2025 MCH (RBC) [Entitic mass] 30.3 pg 27.0-32.0 [facility] Monocyte percentageOrdered B y: Anurag Irene on 04-10-2025 Monocytes/100 WBC (Bld) 10.6 % High 0-10 [facility] Neutrophil percentageOrdered By: Anurag Irene on 04-10-2025 Neutrophils/100 WBC (Bld) 62.8 % 47-70 [facility] No Panel InformationOrdered By: Anurag Irene on 04-10-2025 37 U/L <38 [facility] Platelet countOrdered By: Francois Irene on 04-10-2025 Platelets (Bld) [#/Vol] 114 10*3/uL Low 150-450 [facility] Potassium measurement (mass/ volume)Ordered By: Anurga Irene on 04-10-2025 Potassium (Unsp spec) [Mass/Vol] 3.3 mmol/L 3.3-5.1 [facility] RBC Auto (Bld) [#/Vol]Ordere d By: Anurag Irene on 04-10-2025 RBC (Bld) [#/Vol] 2.51 10*6/uL Low 4.6-6.2 [facility] Serum creatinine measurement (mass/volume)Ordered By: Anurag Irene on 04-10-2025 Creatinine [Mass/Vol] 1.16 mg/dL 0.70-1.20 [facility] Serum globulin measurementOr dered By: Anurag Irene on 04-10-2025 Globulin (S) [Mass/Vol] 3.0 g/dL 2.2-4.2 [facility] Serum glucose measurement (m ass/volume)Ordered By: Anurag Irene on 04-10-2025 Glucose [Mass/Vol] 199 mg/dL High 70-99 [facility] Serum or plasma alanine thomas otransferase (ALT) measurementOrdered By: Anurag Irene on 04-10-2025 ALT [Catalytic activity/Vol] 22 U/L <47 [facility] Serum or plasma albumin roosevelt urement (mass/volume)Ordered By: Anurag Irene on 04-10-2025 Albumin [Mass/Vol] 2.0 g/dL Low 3.5-5.0 [facility] Serum or plasma albumin/glob ulin mass ratioOrdered By: Anurag Irene on 04-10-2025 Albumin/Globulin [Mass ratio] 0.7 {ratio} Low 0.9-2.4 [facility] Serum or plasma alkaline kendrick sphatase measurementOrdered By: Anurag Irene on 04-10-2025 ALP [Catalytic activity/Vol] 140 U/L High 40-129 [facility] Serum or plasma calcium roosevelt urement (mass/volume)Ordered By: Anurag Irene on 04-10-2025 Calcium [Mass/Vol] 8.1 mg/dL 7.6-11.0 [facility] Serum or plasma urea nitroge n measurement (mass/volume)Ordered By: Anurag Irene on 04-10-2025 Urea nitrogen [Mass/Vol] 9 mg/dL 4-19 [facility] Sodium levelOrdered By: Marni Irene on 04-10-2025 Sodium [Moles/Vol] 134 mmol/L 133-145 [facility] Total proteinOrdered By: [place] Irene on 04-10-2025 Protein [Mass/Vol] 4.9 g/dL Low 5.9-8.4 [facility] White blood cell (WBC) count Ordered By: Anurag Irene on 04-10-2025 WBC (Bld) [#/Vol] 6.4 10*3/uL 4.4-11.0 [facility] Bedside Glucoseon 04-09-2025 FINGERSTICK GLU 184 mg/dL High 74-106 [facility] Comment on above: Result Comment: BRISA GEMENT OF PATIENT CARE PER NURSING PROTOCOL Performed By: #### L 501.080 ####[facility] [address] [facility] [address] FINGERSTICK GLU 234 mg/dL High [address] [place] [address] Comment on above: Result Comment: BRISA GEMENT OF PATIENT CARE PER NURSING PROTOCOL Performed By: #### L 501.080 ####[facility] [address] [facility] [address] FINGERSTICK GLU 201 mg/dL High [address] [place] [address] Comment on above: Result Comment: BRISA GEMENT OF PATIENT CARE PER NURSING PROTOCOL Performed By: #### L 501.080 ####[facility] [address] [facility] [address] FINGERSTICK GLU 163 mg/dL High [address] [facility] Comment on above: Result Comment: BRISA GEMENT OF PATIENT CARE PER NURSING PROTOCOL Performed By: #### L 501.080 ####[facility] [address] [place], [address] Bilirubin Test strip Ql (U)O rdered By: Anurag Irene on 04-09-2025 Bilirubin Ql (U) Negative Negative [facility] HH, Hemoglobin AND Hematocri ton 04-09-2025 HCT Normal 40-54 [facility] Comment on above: Result Comment: Canc elled via OM: Order edited - Discontinuing original order Performed By: #### L 100.0600 ####[facility] [address] [place], [address] HGB Normal 13.0-16.5 [facility] Comment on above: Result Comment: Canc elled via OM: Order edited - Discontinuing original order Performed By: #### L 100.0600 ####[facility] [address] [place], [address] Hematocrit (Bld) [Volume fraction] 24.8 % Low 40-54 [facility] Comment on above: Performed By: #### L 100.0600 ####[facility] [address] [place], [address] Hemoglobin (Bld) [Mass/Vol] 8.4 g/dL Low 13.0-16.5 [facility] Comment on above: Performed By: #### L 100.0600 ####[facility] [address] [place], [address] Ketones Test strip Ql (U)Ord ered By: Anurag Irene on 04-09-2025 Ketones Ql (U) Negative Negative [facility] Mucus LM Ql (Urine sed)Order ed By: Anurag Irene on 04-09-2025 Mucus Ql (Urine sed) 0 SEEN /hpf [facility] Nitrite Test strip Ql (U)Ord ered By: Anurag Irene on 04-09-2025 Nitrite Ql (U) Negative Negative [facility] Protein Test strip Ql (U)Ord ered By: Anurag Irene on 04-09-2025 Protein Ql (U) 30 mg/dl High Negative [facility] Squamous epithelial cells de tection in urine sediment by light microscopyOrdered By: Anurag Irene on 04-09-2025 Epithelial cells.squamous LM Ql (Urine sed) 0-5 SEEN /hpf 0-5 [facility] Urinalysis, Completeon 04-09 BACTERIA 2+ /hpf Normal None Seen [facility] Comment on above: Order Comment: CLEAN CATCH Performed By: #### L 400.0001 ####[facility] [address] [place], [address] EPI,SQUAMOUS 0-5 SEEN Normal 0-5 [facility] Comment on above: Order Comment: CLEAN CATCH Performed By: #### L 400.0001 ####[facility] [address] [facility] [address] RBC 10-25 SEEN Normal 0-5 [facility] Comment on above: Order Comment: CLEAN CATCH Performed By: #### L 400.0001 ####[facility] [address] [place], [address] WBC 25-50 SEEN Normal 0-5 [facility] Comment on above: Order Comment: CLEAN CATCH Performed By: #### L 400.0001 ####[facility] [address] [place], [address] Mucus Ql (Urine sed) 0 SEEN Normal [facility] Comment on above: Order Comment: CLEAN CATCH Performed By: #### L 400.0001 ####[facility] [address] [place], [address] Urine Cultureon 04-09-2025 URC Culture exhibits no growth. Normal [facility] Comment on above: Performed By: #### M 100.2200 ####[facility] [address] [place], [place], [address] Urine clarityOrdered By: [place] Irene on 04-09-2025 Clarity (U) Cloudy Clear [facility] Urine color determinationOrd ered By: Anurag Irene on 04-09-2025 Color (U) Straw Yellow [facility] Urine glucose detectionOrder ed By: Anurag Irene on 04-09-2025 Glucose Ql (U) Normal mg/dl Normal [facility] Urine leukocyte esterase det ection by dipstickOrdered By: Anurag Irene on 04-09-2025 Leukocyte esterase Test strip Ql (U) 100 /ul High Negative [facility] Urine pHOrdered By: Anurag Irene on 04-09-2025 pH (U) 7.0 [pH] 5.0 - 8.0 [facility] Urine sediment bacteria coun t by microscopy (number/high power field)Ordered By: Anurag Irene on 04-09-2025 Bacteria LM.HPF (Urine sed) [#/Area] 2 /[HPF] None Seen [facility] Urine specific gravity measu rementOrdered By: Anurag Irene on 04-09-2025 Specific gravity (U) [Rel density] 1.010 1.002-1.030 [facility] Urine urobilinogen measureme ntOrdered By: Anurag Irene on 04-09-2025 Urobilinogen Ql (U) Normal mg/dl Normal [facility] White blood cell countOrdere d By: Anurag Irene on 04-09-2025 White blood cell count 25-50 SEEN /hpf 0-5 [facility] Ammoniaon 04-08-2025 Ammonia (P) [Moles/Vol] 105.0 umol/L High 16-60 [facility] Comment on above: Performed By: #### L 100.0100, L503.5510, L500.4050 ####[facility] [address] [place], [place], [address] Bedside Glucoseon 04-08-2025 FINGERSTICK GLU 186 mg/dL High 74-106 [facility] Comment on above: Result Comment: BRISA GEMENT OF PATIENT CARE PER NURSING PROTOCOL Performed By: #### L 501.080 ####[facility] [address] [place], [address] FINGERSTICK GLU 224 mg/dL High 74-106 [facility] Comment on above: Result Comment: BRISA GEMENT OF PATIENT CARE PER NURSING PROTOCOL Performed By: #### L 501.080 ####[facility] [address] [place], [address] FINGERSTICK GLU 244 mg/dL High 74-106 [facility] Comment on above: Result Comment: BRISA GEMENT OF PATIENT CARE PER NURSING PROTOCOL Performed By: #### L 501.080 ####[facility] [address] [place], [address] FINGERSTICK GLU 113 mg/dL High -106 [facility] Comment on above: Result Comment: BRISA GEMENT OF PATIENT CARE PER NURSING PROTOCOL Performed By: #### L 501.080 ####[facility] [address] [place], [address] FINGERSTICK GLU 145 mg/dL High -106 [facility] Comment on above: Result Comment: BRISA GEMENT OF PATIENT CARE PER NURSING PROTOCOL Performed By: #### L 501.080 ####[facility] [address] [place], [address] CBC W/Diff, Automatedon 09-0 5-2025 Absolute Lymph 1.47 X10 3/uL Normal 0.83-4.51 [facility] Comment on above: Performed By: #### L 100.0100, L503.5510, L500.4050 ####[facility] [address] [place], [address] Absolute Neut 3.9 X10 3/uL Normal 2.0-7.7 [facility] Comment on above: Performed By: #### L 100.0100, L503.5510, L500.4050 ####[facility] [address] [place], [address] Basophils/100 WBC (Bld) 0.8 % Normal 0-1 [facility] Comment on above: Performed By: #### L 100.0100, L503.5510, L500.4050 ####[facility] [address] [place], [address] Eosinophils/100 WBC (Bld) 5.7 % High 0-5 [facility] Comment on above: Performed By: #### L 100.0100, L503.5510, L500.4050 ####[facility] [address] [place], [address] Erythrocyte distribution width (RBC) [Ratio] 15.8 % High 11.6-14.6 [facility] Comment on above: Performed By: #### L 100.0100, L503.5510, L500.4050 ####[facility] [address] [place], [address] Hematocrit (Bld) [Volume fraction] 27.5 % Low 40-54 [facility] Comment on above: Performed By: #### L 100.0100, L503.5510, L500.4050 ####[facility] [address] [place], [address] Hemoglobin (Bld) [Mass/Vol] 9.0 g/dL Low 13.0-16.5 [facility] Comment on above: Performed By: #### L 100.0100, L503.5510, L500.4050 ####[facility] [address] [place], [address] IG% 0.500 Normal 0.0-0.9 [facility] Comment on above: Result Comment: IG% - Immature Granulocytes (promyelocytes, myelocytes andmetamyelocytes) > 1% indicates that a LEFT SHIFT is Present. Performed By: #### L 100.0100, L503.5510, L500.4050 ####[facility] [address] [place], [address] Lymphocytes/100 WBC (Bld) 22.5 % Normal 19-41 [facility] Comment on above: Performed By: #### L 100.0100, L503.5510, L500.4050 ####[facility] [address] [place], [address] MCH (RBC) [Entitic mass] 30.6 pg Normal 27.0-32.0 [facility] Comment on above: Performed By: #### L 100.0100, L503.5510, L500.4050 ####[facility] [address] [place], [address] MCHC (RBC) [Mass/Vol] 32.7 g/dL Normal 32-36 [facility] Comment on above: Performed By: #### L 100.0100, L503.5510, L500.4050 ####[facility] [address] [place], [address] MCV (RBC) [Entitic vol] 93.5 fL Normal 80-94 [facility] Comment on above: Performed By: #### L 100.0100, L503.5510, L500.4050 ####[facility] [address] [place], [address] Monocytes/100 WBC (Bld) 10.7 % High 0-10 [facility] Comment on above: Performed By: #### L 100.0100, L503.5510, L500.4050 ####[facility] [address] [place], [address] Neutrophils/100 WBC (Bld) 59.8 % Normal 47-70 [facility] Comment on above: Performed By: #### L 100.0100, L503.5510, L500.4050 ####[facility] [address] [place], [address] Nucleated RBC (Bld) [#/Vol] 0 10*3/uL Normal 0-5 [facility] Comment on above: Performed By: #### L 100.0100, L503.5510, L500.4050 ####[facility] [address] [place], [address] Platelet mean volume (Bld) [Entitic vol] 10.3 fL Normal 6.2-12.0 [facility] Comment on above: Performed By: #### L 100.0100, L503.5510, L500.4050 ####[facility] [address] [place], [address] Platelets (Bld) [#/Vol] 124 10*3/uL Low 150-450 [facility] Comment on above: Performed By: #### L 100.0100, L503.5510, L500.4050 ####[facility] [address] [place], [address] RBC (Bld) [#/Vol] 2.94 10*6/uL Low 4.6-6.2 [facility] Comment on above: Performed By: #### L 100.0100, L503.5510, L500.4050 ####[facility] [address] [place], [address] RDW SD 53.2 fl High 35.1-43.9 [facility] Comment on above: Performed By: #### L 100.0100, L503.5510, L500.4050 ####[facility] [address] [place], [address] WBC (Bld) [#/Vol] 6.5 10*3/uL Normal 4.4-11.0 [facility] Comment on above: Performed By: #### L 100.0100, L503.5510, L500.4050 ####[facility] [address] [place], [address] Comprehensive Metabolic Prof lexis 04-08-2025 Albumin [Mass/Vol] 2.1 g/dL Low 3.5-5.0 [facility] Comment on above: Performed By: #### L 100.0100, L503.5510, L500.4050 ####[facility] [address] [place], [address] Albumin/Globulin [Mass ratio] 0.7 {ratio} Low 0.9-2.4 [facility] Comment on above: Performed By: #### L 100.0100, L503.5510, L500.4050 ####[facility] [address] [place], [address] ALK PHOS 146 U/L High 40-129 [facility] Comment on above: Performed By: #### L 100.0100, L503.5510, L500.4050 ####[facility] [address] [place], [address] ALT [Catalytic activity/Vol] 22 U/L Normal <=46 [facility] Comment on above: Performed By: #### L 100.0100, L503.5510, L500.4050 ####[facility] [address] [place], [address] AST [Catalytic activity/Vol] 44 U/L High <=37 [facility] Comment on above: Performed By: #### L 100.0100, L503.5510, L500.4050 ####[facility] [address] [place], [address] Bilirubin [Mass/Vol] 1.80 mg/dL High 0.00-1.30 [facility] Comment on above: Performed By: #### L 100.0100, L503.5510, L500.4050 ####[facility] [address] [place], [address] BUN/CRE 10.0 RATIO Normal 10-20 [facility] Comment on above: Performed By: #### L 100.0100, L503.5510, L500.4050 ####[facility] [address] [place], [address] Calcium [Mass/Vol] 8.4 mg/dL Normal 7.6-11.0 [facility] Comment on above: Performed By: #### L 100.0100, L503.5510, L500.4050 ####[facility] [address] [place], [address] Chloride [Moles/Vol] 111 mmol/L High 98-108 [facility] Comment on above: Performed By: #### L 100.0100, L503.5510, L500.4050 ####[facility] [address] [place], [address] CO2 [Moles/Vol] 16.1 mmol/L Low 21.0-32.0 [facility] Comment on above: Performed By: #### L 100.0100, L503.5510, L500.4050 ####[facility] [address] [place], [address] Creatinine [Mass/Vol] 1.00 mg/dL Normal 0.70-1.20 [facility] Comment on above: Performed By: #### L 100.0100, L503.5510, L500.4050 ####[facility] [address] [place], [address] ECRCL 92.41 ml/min Normal 50-250 [facility] Comment on above: Performed By: #### L 100.0100, L503.5510, L500.4050 ####[facility] [address] [place], [address] GAP 8 Normal 5-15 [facility] Comment on above: Performed By: #### L 100.0100, L503.5510, L500.4050 ####[facility] [address] [place], [address] GFR/1.73 sq M.predicted among non-blacks MDRD (S/P/Bld) [Vol rate/Area] 87 mL/min/{1.73_m2} Normal >60 [facility] Comment on above: Result Comment: mL/m in/1.73m2 CKD-EPI Creatinine Equation (2020) Performed By: #### L 100.0100, L503.5510, L500.4050 ####[facility] [address] [place], [address] Globulin (S) [Mass/Vol] 3.2 g/dL Normal 2.2-4.2 [facility] Comment on above: Performed By: #### L 100.0100, L503.5510, L500.4050 ####[facility] [address] [place], [address] Glucose [Mass/Vol] 113 mg/dL High 70-99 [facility] Comment on above: Performed By: #### L 100.0100, L503.5510, L500.4050 ####[facility] [address] [place], [address] Potassium [Moles/Vol] 3.9 mmol/L Normal 3.3-5.1 [facility] Comment on above: Performed By: #### L 100.0100, L503.5510, L500.4050 ####[facility] [address] [place], [address] Sodium [Moles/Vol] 135 mmol/L Normal 133-145 [facility] Comment on above: Performed By: #### L 100.0100, L503.5510, L500.4050 ####[facility] [address] [place], [address] T PROT 5.4 g/dL Low 5.9-8.4 [facility] Comment on above: Performed By: #### L 100.0100, L503.5510, L500.4050 ####[facility] [address] [place], [address] Urea nitrogen [Mass/Vol] 10 mg/dL Normal 4-19 [facility] Comment on above: Performed By: #### L 100.0100, L503.5510, L500.4050 ####[facility] [address] [place], [address] L509.7001on 04-08-2025 Procalcitonin 0.09 ng/mL Normal <=0.10 [facility] Comment on above: Result Comment: Inte rpretation:<0.10-0.25 ng/mL: Antibiotic therapy discouraged. Bacterialinfection unlikely.0.25-0.50 ng/mL: Antibiotic therapy encouraged. Bacterialinfection possible.>0.50 ng/mL: Antibiotic therapy strongly encouraged.Suggestive of presence of bacterial infection.PCT should always be interpreted in the clinical context ofthe patient. Therefore, clinicians should use the PCTresults in conjunction with other laboratory findings andclinical signs of the patient. Performed By: #### L 509.7001 ####[facility] [address] [place], [address] M100.019on 04-08-2025 M100.019 Negative Normal [facility] Comment on above: Performed By: #### M 100.019, M100.638 ####[facility] [address] [place], [address] RESPIRATORY PANEL MOLECULARo n 04-08-2025 RP PANEL Normal [facility] Comment on above: Performed By: #### M 100.019, M100.638 ####[facility] [address] [place], [address] Venous blood ammonia measure mentOrdered By: Maria Guadalupe Shore on 04-08-2025 Ammonia (P) [Moles/Vol] 105.0 umol/L High 1660 [facility] 12 Lead EKGon 04-07-2025 12 Lead EKG Normal [facility] Absolute lymphocyte countOrd ered By: Rachel Joiner on 04-07-2025 Lymphocytes Auto (Unsp spec) [#/Vol] 1.32 10*3/uL 0.83-4.51 [facility] Ammoniaon 04-07-2025 Ammonia (P) [Moles/Vol] 143.0 umol/L High 16-60 [facility] Comment on above: Performed By: #### L 501.2450, L500.3400, L100.0100, L500.2500, L503.5510 ####[facility] [address] [place], [place], [id number] Anion gap in Serum or Plasma Ordered By: Rachel Joiner on 04-07-2025 Anion gap [Moles/Vol] 9 mmol/L 5-15 [facility] Automated lymphocyte count a s percentage of total leukocytesOrdered By: Rachel Joiner on 04-07-2025 Lymphocytes/100 WBC Auto (Unsp spec) 16.8 % Low 19-41 [facility] BUN/creatinine ratioOrdered By: Rachel Joiner on 04-07-2025 Urea nitrogen/Creatinine [Mass ratio] 10.5 mg/mg 10- [facility] Basic Metabolic Profile (BMP )on 04-07-2025 BUN/CRE 10.5 RATIO Normal - [facility] Comment on above: Performed By: #### L 501.2450, L500.3400, L100.0100, L500.2500, L503.5510 ####[facility] [address] [place], [place], [id number]) Calcium [Mass/Vol] 8.6 mg/dL Normal 7.6-11.0 [facility] Comment on above: Performed By: #### L 501.2450, L500.3400, L100.0100, L500.2500, L503.5510 ####[facility] [address] [place], [address] Chloride [Moles/Vol] 110 mmol/L High 98-108 [facility] Comment on above: Performed By: #### L 501.2450, L500.3400, L100.0100, L500.2500, L503.5510 ####[facility] [address] [place], [address] CO2 [Moles/Vol] 16.9 mmol/L Low 21.0-32.0 [facility] Comment on above: Performed By: #### L 501.2450, L500.3400, L100.0100, L500.2500, L503.5510 ####[facility] [address] [place], [address] Creatinine [Mass/Vol] 1.04 mg/dL Normal 0.70-1.20 [facility] Comment on above: Performed By: #### L 501.2450, L500.3400, L100.0100, L500.2500, L503.5510 ####[facility] [address] [place], [address] GAP 9 Normal 5-15 [facility] Comment on above: Performed By: #### L 501.2450, L500.3400, L100.0100, L500.2500, L503.5510 ####[facility] [address] [place], [address] GFR/1.73 sq M.predicted among non-blacks MDRD (S/P/Bld) [Vol rate/Area] 83 mL/min/{1.73_m2} Normal >60 [facility] Comment on above: Result Comment: mL/m in/1.73m2 CKD-EPI Creatinine Equation (2020) Performed By: #### L 501.2450, L500.3400, L100.0100, L500.2500, L503.5510 ####[facility] [address] [place], [address] Glucose [Mass/Vol] 106 mg/dL High 70-99 [facility] Comment on above: Performed By: #### L 501.2450, L500.3400, L100.0100, L500.2500, L503.5510 ####[facility] [address] [place], [address] Potassium [Moles/Vol] 4.0 mmol/L Normal 3.3-5.1 [facility] Comment on above: Performed By: #### L 501.2450, L500.3400, L100.0100, L500.2500, L503.5510 ####[facility] [address] [place], [address] Sodium [Moles/Vol] 136 mmol/L Normal 133-145 [facility] Comment on above: Performed By: #### L 501.2450, L500.3400, L100.0100, L500.2500, L503.5510 ####[facility] [address] [place], [address] Urea nitrogen [Mass/Vol] 11 mg/dL Normal 4-19 [facility] Comment on above: Performed By: #### L 501.2450, L500.3400, L100.0100, L500.2500, L503.5510 ####[facility] [address] [place], [address] Basophil percentageOrdered B y: Rachel Joiner on 04-07-2025 Basophils/100 WBC (Bld) 0.6 % 0-1 [facility] Bedside Glucoseon 04-07-2025 FINGERSTICK GLU 81 mg/dL Normal 74-106 [facility] Comment on above: Result Comment: BRISA MOROCHO OF PATIENT CARE PER NURSING PROTOCOL Performed By: #### L 501.080 ####[facility] [address] [place], [address] Bilirubin Test strip Ql (U)O rdered By: Rachel Joiner on 04-07-2025 Bilirubin Ql (U) Negative Negative [facility] Bilirubin directOrdered By: Rachel Joiner on 04-07-2025 Bilirubin.direct [Mass/Vol] 1.11 mg/dL High 0.00-0.30 [facility] Bilirubin, totalOrdered By: Rachel Joiner on 04-07-2025 Bilirubin [Mass/Vol] 1.76 mg/dL High 0.00-1.30 [facility] CBC W/Diff, Automatedon Absolute Lymph 1.32 X10 3/uL Normal 0.83-4.51 [facility] Comment on above: Performed By: #### L 501.2450, L500.3400, L100.0100, L500.2500, L503.5510 ####[facility] [address] [place], [address] Absolute Neut 5.3 X10 3/uL Normal 2.0-7.7 [facility] Comment on above: Performed By: #### L 501.2450, L500.3400, L100.0100, L500.2500, L503.5510 ####[facility] [address] [place], [address] Basophils/100 WBC (Bld) 0.6 % Normal 0-1 [facility] Comment on above: Performed By: #### L 501.2450, L500.3400, L100.0100, L500.2500, L503.5510 ####[facility] [address] [place], [address] Eosinophils/100 WBC (Bld) 5.2 % High 0-5 [facility] Comment on above: Performed By: #### L 501.2450, L500.3400, L100.0100, L500.2500, L503.5510 ####[facility] [address] [place], [address] Erythrocyte distribution width (RBC) [Ratio] 15.5 % High 11.6-14.6 [facility] Comment on above: Performed By: #### L 501.2450, L500.3400, L100.0100, L500.2500, L503.5510 ####[facility] [address] [place], [address] Hematocrit (Bld) [Volume fraction] 27.7 % Low 40-54 [facility] Comment on above: Performed By: #### L 501.2450, L500.3400, L100.0100, L500.2500, L503.5510 ####[facility] [address] [place], [address] Hemoglobin (Bld) [Mass/Vol] 9.1 g/dL Low 13.0-16.5 [facility] Comment on above: Performed By: #### L 501.2450, L500.3400, L100.0100, L500.2500, L503.5510 ####[facility] [address] [place], [address] IG% 0.500 Normal 0.0-0.9 [facility] Comment on above: Result Comment: IG% - Immature Granulocytes (promyelocytes, myelocytes andmetamyelocytes) > 1% indicates that a LEFT SHIFT is Present. Performed By: #### L 501.2450, L500.3400, L100.0100, L500.2500, L503.5510 ####[facility] [address] [place], [address] Lymphocytes/100 WBC (Bld) 16.8 % Low 19-41 [facility] Comment on above: Performed By: #### L 501.2450, L500.3400, L100.0100, L500.2500, L503.5510 ####[facility] [address] [place], [address] MCH (RBC) [Entitic mass] 29.7 pg Normal 27.0-32.0 [facility] Comment on above: Performed By: #### L 501.2450, L500.3400, L100.0100, L500.2500, L503.5510 ####[facility] [address] [place], [address] MCHC (RBC) [Mass/Vol] 32.9 g/dL Normal 32-36 [facility] Comment on above: Performed By: #### L 501.2450, L500.3400, L100.0100, L500.2500, L503.5510 ####[facility] [address] [place], [address] MCV (RBC) [Entitic vol] 90.5 fL Normal 80-94 [facility] Comment on above: Performed By: #### L 501.2450, L500.3400, L100.0100, L500.2500, L503.5510 ####[facility] [address] [place], [address] Monocytes/100 WBC (Bld) 9.9 % Normal 0-10 [facility] Comment on above: Performed By: #### L 501.2450, L500.3400, L100.0100, L500.2500, L503.5510 ####[facility] [address] [place], [address] Neutrophils/100 WBC (Bld) 67.0 % Normal 47-70 [facility] Comment on above: Performed By: #### L 501.2450, L500.3400, L100.0100, L500.2500, L503.5510 ####[facility] [address] [place], [address] Nucleated RBC (Bld) [#/Vol] 0 10*3/uL Normal 0-5 [facility] Comment on above: Performed By: #### L 501.2450, L500.3400, L100.0100, L500.2500, L503.5510 ####[facility] [address] [place], [address] Platelet mean volume (Bld) [Entitic vol] 10.8 fL Normal 6.2-12.0 [facility] Comment on above: Performed By: #### L 501.2450, L500.3400, L100.0100, L500.2500, L503.5510 ####[facility] [address] [place], [address] Platelets (Bld) [#/Vol] 164 10*3/uL Normal 150-450 [facility] Comment on above: Performed By: #### L 501.2450, L500.3400, L100.0100, L500.2500, L503.5510 ####[facility] [address] [place], [address] RBC (Bld) [#/Vol] 3.06 10*6/uL Low 4.6-6.2 [facility] Comment on above: Performed By: #### L 501.2450, L500.3400, L100.0100, L500.2500, L503.5510 ####[facility] [address] [place], [address] RDW SD 50.8 fl High 35.1-43.9 [facility] Comment on above: Performed By: #### L 501.2450, L500.3400, L100.0100, L500.2500, L503.5510 ####[facility] [address] [place], [address] WBC (Bld) [#/Vol] 7.9 10*3/uL Normal 4.4-11.0 [facility] Comment on above: Performed By: #### L 501.2450, L500.3400, L100.0100, L500.2500, L503.5510 ####[facility] [address] [place], [address] Carbon dioxide, total [Moles /volume] in Central venous bloodOrdered By: Rachel Joiner on 04-07-2025 CO2 [Moles/Vol] 16.9 mmol/L Low 21.0-32.0 [facility] Chloride assayOrdered By: Brendan Joiner on 04-07-2025 Chloride [Moles/Vol] 110 mmol/L High 98-108 [facility] Emergency Department Summary on 04-07-2025 Emergency Department Summary Normal [facility] Eosinophil percentageOrdered By: Rachel Joiner on 04-07-2025 Eosinophils/100 WBC (Bld) 5.2 % High 0-5 [facility] Erythrocyte distribution wid th ratioOrdered By: Rachel Joiner on 04-07-2025 Erythrocyte distribution width (RBC) [Ratio] 15.5 % High 11.6-14.6 [facility] Erythrocyte distribution wid th standard deviationOrdered By: Rachel Joiner on 04-07-2025 Erythrocyte distribution width (RBC) [Ratio] 50.8 fl High 35.1-43.9 [facility] Glomerular filtration rate ( GFR) estimation/1.73 sq m using serum, plasma, or whole bOrdered By: Rachel Joiner on 04-07-2025 GFR/1.73 sq M.predicted among non-blacks MDRD (S/P/Bld) [Vol rate/Area] 83 mL/min/{1.73_m2} >60 [facility] By: ED PROVIDER on 04-07-2025 Glucose [Mass/Vol] 81 mg/dL 74-106 [facility] H AND P Exam - Hospitaliston 04-07-2025 H&P Exam - Hospitalist Normal [facility] Hematocrit Auto (Bld) [Volum e fraction]Ordered By: Rachel Joiner on 04-07-2025 Hematocrit (Bld) [Volume fraction] 27.7 % Low 40-54 [facility] Hemoglobin measurementOrdere d By: Rachel Joiner on 04-07-2025 Hemoglobin (Bld) [Mass/Vol] 9.1 g/dL Low 13.0-16.5 [facility] Immature granulocytes/100 WB C Auto (Bld)Ordered By: Rachel Daniellepetra on 04-07-2025 Immature granulocytes/100 WBC (Bld) 0.500 % 0.0-0.9 [facility] Ketones Test strip Ql (U)Ord ered By: Rachel Marisel on 04-07-2025 Ketones Ql (U) Negative Negative [facility] Lipaseon 04-07-2025 Lipase [Catalytic activity/Vol] 47 U/L Normal 13-75 [facility] Comment on above: Result Comment: Siddhartha bhat note:LIPASE revised reference range effective 22.New Lipase methodology. Expected to produce lower valuesthan the previous assay method.NEW Reference Range: 13 - 75 U/L Performed By: #### L 501.2450, L500.3400, L100.0100, L500.2500, L503.5510 ####[facility] [address] [place], [address] Liver Profileon 04-07-2025 Albumin [Mass/Vol] 2.4 g/dL Low 3.5-5.0 [facility] Comment on above: Performed By: #### L 501.2450, L500.3400, L100.0100, L500.2500, L503.5510 ####[facility] [address] [place], [address] ALK PHOS 176 U/L High 40-129 [facility] Comment on above: Performed By: #### L 501.2450, L500.3400, L100.0100, L500.2500, L503.5510 ####[facility] [address] [place], [address] ALT [Catalytic activity/Vol] 23 U/L Normal <=46 [facility] Comment on above: Performed By: #### L 501.2450, L500.3400, L100.0100, L500.2500, L503.5510 ####[facility] [address] [place], [address] AST [Catalytic activity/Vol] 48 U/L High <=37 [facility] Comment on above: Performed By: #### L 501.2450, L500.3400, L100.0100, L500.2500, L503.5510 ####[facility] [address] [place], [address] Bilirubin [Mass/Vol] 1.76 mg/dL High 0.00-1.30 [facility] Comment on above: Performed By: #### L 501.2450, L500.3400, L100.0100, L500.2500, L503.5510 ####[facility] [address] [place], [address] Bilirubin.direct [Mass/Vol] 1.11 mg/dL High 0.00-0.30 [facility] Comment on above: Performed By: #### L 501.2450, L500.3400, L100.0100, L500.2500, L503.5510 ####[facility] [address] [place], [address] Globulin (S) [Mass/Vol] 3.8 g/dL Normal 2.2-4.2 [facility] Comment on above: Performed By: #### L 501.2450, L500.3400, L100.0100, L500.2500, L503.5510 ####[facility] [address] [place], [address] T PROT 6.1 g/dL Normal 5.9-8.4 [facility] Comment on above: Performed By: #### L 501.2450, L500.3400, L100.0100, L500.2500, L503.5510 ####[facility] [address] [place], [address] MCV (mean corpuscular volume ) determinationOrdered By: Rachel Joiner on 04-07-2025 MCV (RBC) [Entitic vol] 90.5 fL 80-94 [facility] Magnesiumon 04-07-2025 Magnesium [Mass/Vol] 1.7 mg/dL Normal 1.5-2.2 [facility] Comment on above: Order Comment: Comme nts: May add to ED labsComments: may add to ED labs Performed By: #### L 501.5200, L501.2300 ####[facility] [address] [place], [address] Magnesium measurement (mass/ volume)Ordered By: Maria Guadalupe Shore on 04-07-2025 Magnesium (Unsp spec) [Mass/Vol] 1.7 mg/dL 1.5-2.2 [facility] Mean corpuscular hemoglobin (MCH) determinationOrdered By: Rachel Joiner on 04-07-2025 MCH (RBC) [Entitic mass] 29.7 pg 27.0-32.0 [facility] Monocyte percentageOrdered B y: Rachel Joiner on 04-07-2025 Monocytes/100 WBC (Bld) 9.9 % 0-10 [facility] Mucus LM Ql (Urine sed)Order ed By: Rachel Joiner on 04-07-2025 Mucus Ql (Urine sed) 0 SEEN /hpf [facility] Neutrophil percentageOrdered By: Rachel Joiner on 04-07-2025 Neutrophils/100 WBC (Bld) 67.0 % 47-70 [facility] Nitrite Test strip Ql (U)Ord ered By: Rachel Joiner on 04-07-2025 Nitrite Ql (U) Negative Negative [facility] No Panel InformationOrdered By: Rachel Joiner on 04-07-2025 48 U/L High <38 [facility] Phosphoruson 04-07-2025 Phosphate [Mass/Vol] 3.0 mg/dL Normal 2.7-4.5 [facility] Comment on above: Order Comment: Comme nts: May add to ED labsComments: may add to ED labs Performed By: #### L 501.5200, L501.2300 ####[facility] [address] [place], [address] Platelet countOrdered By: Brendan Joiner on 04-07-2025 Platelets (Bld) [#/Vol] 164 10*3/uL 150-450 [facility] Potassium measurement (mass/ volume)Ordered By: Rachel Joiner on 04-07-2025 Potassium (Unsp spec) [Mass/Vol] 4.0 mmol/L 3.3-5.1 [facility] Procalcitonin [Mass/volume] in Serum or Plasma by ImmunoassayOrdered By: Maria Guadalupe Shore on 04-07-2025 Procalcitonin IA [Mass/Vol] 0.09 ng/mL <0.11 [facility] Protein Test strip Ql (U)Ord ered By: Rachel Joiner on 04-07-2025 Protein Ql (U) 100 mg/dl High Negative [facility] RBC Auto (Bld) [#/Vol]Ordere d By: Rachel Joiner on 04-07-2025 RBC (Bld) [#/Vol] 3.06 10*6/uL Low 4.6-6.2 [facility] Respiratory pathogens detect ion panel by molecular detection methodOrdered By: Maria Guadalupe Shore on 04-07-2025 Respiratory pathogens DNA and RNA panel ANANTH+probe (Resp) Rhinovirus Abnormal [facility] [id number]-[id number] By: Maria Guadalupe Shore on 04-07-2025 SARS-CoV-2 (COVID-19) RNA ANANTH+probe Ql (Unsp spec) [facility] Serum creatinine measurement (mass/volume)Ordered By: Rachel Joiner on 04-07-2025 Creatinine [Mass/Vol] 1.04 mg/dL 0.70-1.20 [facility] Serum globulin measurementOr dered By: Rachel Joiner on 04-07-2025 Globulin (S) [Mass/Vol] 3.8 g/dL 2.2-4.2 [facility] Serum glucose measurement (m ass/volume)Ordered By: Rachel Joiner on 04-07-2025 Glucose [Mass/Vol] 106 mg/dL High 70-99 [facility] Serum or plasma alanine thomas otransferase (ALT) measurementOrdered By: Rachel Joiner on 04-07-2025 ALT [Catalytic activity/Vol] 23 U/L <47 [facility] Serum or plasma albumin roosevelt urement (mass/volume)Ordered By: Rachel Joiner on 04-07-2025 Albumin [Mass/Vol] 2.4 g/dL Low 3.5-5.0 [facility] Serum or plasma alkaline kendrick sphatase measurementOrdered By: Rachel Joiner on 04-07-2025 ALP [Catalytic activity/Vol] 176 U/L High 40-129 [facility] Serum or plasma calcium orosevelt urement (mass/volume)Ordered By: Rachel Joiner on 04-07-2025 Calcium [Mass/Vol] 8.6 mg/dL 7.6-11.0 [facility] Serum or plasma urea nitroge n measurement (mass/volume)Ordered By: Rachel Joiner on 04-07-2025 Urea nitrogen [Mass/Vol] 11 mg/dL 4-19 [facility] Sodium levelOrdered By: Kateryna Joiner on 04-07-2025 Sodium [Moles/Vol] 136 mmol/L 133-145 [facility] Squamous epithelial cells de tection in urine sediment by light microscopyOrdered By: Rachel Joiner on 04-07-2025 Epithelial cells.squamous LM Ql (Urine sed) 0 SEEN /hpf 0-5 [facility] Total proteinOrdered By: Shi Joiner on 04-07-2025 Protein [Mass/Vol] 6.1 g/dL 5.9-8.4 [facility] Urinalysis, Completeon 04-07 BACTERIA 1+ /hpf Normal None Seen [facility] Comment on above: Order Comment: CLEAN CATCH Performed By: #### L 400.0001 ####[facility] [address] [place], [place], [id number] RBC 50-100 SEEN Normal 0-5 [facility] Comment on above: Order Comment: CLEAN CATCH Performed By: #### L 400.0001 ####[facility] [address] [place], [address] WBC 0-5 SEEN Normal 0-5 [facility] Comment on above: Order Comment: CLEAN CATCH Performed By: #### L 400.0001 ####[facility] [address] [place], [address] EPI,SQUAMOUS 0 SEEN Normal 0-5 [facility] Comment on above: Order Comment: CLEAN CATCH Performed By: #### L 400.0001 ####[facility] [address] [place], [address] Mucus Ql (Urine sed) 0 SEEN Normal [facility] Comment on above: Order Comment: CLEAN CATCH Performed By: #### L 400.0001 ####[facility] [address] [place], [place], [id number] Urine clarityOrdered By: Shi Joiner on 04-07-2025 Clarity (U) Sl. Cloudy Clear [facility] Urine color determinationOrd ered By: Rachel Joiner on 04-07-2025 Color (U) Yellow Yellow [facility] Urine cultureOrdered By: Shi Joiner on 04-07-2025 Bacteria identified Cx Nom (U) Culture exhibits no growth. [facility] Urine glucose detectionOrder ed By: Rachle Joiner on 04-07-2025 Glucose Ql (U) Normal mg/dl Normal [facility] Urine leukocyte esterase det ection by dipstickOrdered By: Rachel Joiner on 04-07-2025 Leukocyte esterase Test strip Ql (U) 500 /ul High Negative [facility] Urine pHOrdered By: Rachel silva on 04-07-2025 pH (U) 6.5 [pH] 5.0 - 8.0 [facility] Urine sediment bacteria coun t by microscopy (number/high power field)Ordered By: Rachel Joiner on 04-07-2025 Bacteria LM.HPF (Urine sed) [#/Area] 1 /[HPF] None Seen [facility] Urine specific gravity measu rementOrdered By: Rachel Joiner on 04-07-2025 Specific gravity (U) [Rel density] 1.015 1.002-1.030 [facility] Urine urobilinogen measureme ntOrdered By: Rcahel Joiner on 04-07-2025 Urobilinogen Ql (U) Normal mg/dl Normal [facility] Venous blood ammonia measure mentOrdered By: Rachel Joiner on 04-07-2025 Ammonia (P) [Moles/Vol] 143.0 umol/L High 16-60 [facility] White blood cell (WBC) count Ordered By: Rachel Joiner on 04-07-2025 WBC (Bld) [#/Vol] 7.9 10*3/uL 4.4-11.0 [facility] White blood cell countOrdere d By: Rachel Joiner on 04-07-2025 White blood cell count 0-5 SEEN /hpf 0-5 [facility] 12 Lead EKGon 04-03-2025 12 Lead EKG Normal [facility] CBC W/Diff, Automatedon - Absolute Neut Normal 2.0-7.7 [facility] Comment on above: Result Comment: Canc elled via OM: MD Ordered Performed By: #### L 100.0100, L300.3900, L500.4050 ####[facility] [address] [place], [address] HCT Normal 40-54 [facility] Comment on above: Result Comment: Canc elled via OM: MD Ordered Performed By: #### L 100.0100, L300.3900, L500.4050 ####[facility] [address] [place], [address] HGB Normal 13.0-16.5 [facility] Comment on above: Result Comment: Kishorc elled via OM: MD Ordered Performed By: #### L 100.0100, L300.3900, L500.4050 ####[facility] [address] [place], [address] MCH Normal 27.0-32.0 [facility] Comment on above: Result Comment: Canc elled via OM: MD Ordered Performed By: #### L 100.0100, L300.3900, L500.4050 ####[facility] [address] [place], [address] MCHC Normal 32-36 [facility] Comment on above: Result Comment: Canc elled via OM: MD Ordered Performed By: #### L 100.0100, L300.3900, L500.4050 ####[facility] [address] [place], [address] MCV Normal 80-94 [facility] Comment on above: Result Comment: Canc elled via OM: MD Ordered Performed By: #### L 100.0100, L300.3900, L500.4050 ####[facility] [address] [place], [address] NEUT% Normal 47-70 [facility] Comment on above: Result Comment: Canc elled via OM: MD Ordered Performed By: #### L 100.0100, L300.3900, L500.4050 ####[facility] [address] [place], [address] PLT Normal 150-450 [facility] Comment on above: Result Comment: Canc elled via OM: MD Ordered Performed By: #### L 100.0100, L300.3900, L500.4050 ####[facility] [address] [place], [address] RBC Normal 4.6-6.2 [facility] Comment on above: Result Comment: Canc elled via OM: MD Ordered Performed By: #### L 100.0100, L300.3900, L500.4050 ####[facility] [address] [place], [address] RDW CV Normal 11.6-14.6 [facility] Comment on above: Result Comment: Canc elled via OM: MD Ordered Performed By: #### L 100.0100, L300.3900, L500.4050 ####[facility] [address] [place], [address] RDW SD Normal 35.1-43.9 [facility] Comment on above: Result Comment: Canc elled via OM: MD Ordered Performed By: #### L 100.0100, L300.3900, L500.4050 ####[facility] [address] [place], [address] WBC Normal 4.4-11.0 [facility] Comment on above: Result Comment: Canc elled via OM: MD Ordered Performed By: #### L 100.0100, L300.3900, L500.4050 ####[facility] [address] [place], [address] Comprehensive Metabolic Prof ilon 04-03-2025 ALB Normal 3.5-5.0 [facility] Comment on above: Result Comment: Canc elled via OM: MD Ordered Performed By: #### L 100.0100, L300.3900, L500.4050 ####[facility] [address] [place], [address] ALK PHOS Normal 40-129 [facility] Comment on above: Result Comment: Canc elled via OM: MD Ordered Performed By: #### L 100.0100, L300.3900, L500.4050 ####[facility] [address] [place], [address] ALT Normal <=46 [facility] Comment on above: Result Comment: Canc elled via OM: MD Ordered Performed By: #### L 100.0100, L300.3900, L500.4050 ####[facility] [address] [place], [address] AST Normal <=37 [facility] Comment on above: Result Comment: Canc elled via OM: MD Ordered Performed By: #### L 100.0100, L300.3900, L500.4050 ####[facility] [address] [place], [address] BUN Normal 4-19 [facility] Comment on above: Result Comment: Canc elled via OM: MD Ordered Performed By: #### L 100.0100, L300.3900, L500.4050 ####[facility] [address] [place], [address] BUN/CRE Normal 10-20 [facility] Comment on above: Result Comment: Canc elled via OM: MD Ordered Performed By: #### L 100.0100, L300.3900, L500.4050 ####[facility] [address] [place], [address] Calcium Normal 7.6-11.0 [facility] Comment on above: Result Comment: Canc elled via OM: MD Ordered Performed By: #### L 100.0100, L300.3900, L500.4050 ####[facility] [address] [place], [address] CL Normal 98-108 [facility] Comment on above: Result Comment: Canc elled via OM: MD Ordered Performed By: #### L 100.0100, L300.3900, L500.4050 ####[facility] [address] [place], [address] CO2 Normal 21.0-32.0 [facility] Comment on above: Result Comment: Canc elled via OM: MD Ordered Performed By: #### L 100.0100, L300.3900, L500.4050 ####[facility] [address] [place], [address] CREAT,SERUM Normal 0.70-1.20 [facility] Comment on above: Result Comment: Canc elled via OM: MD Ordered Performed By: #### L 100.0100, L300.3900, L500.4050 ####[facility] [address] [place], [address] eGFR Normal >60 [facility] Comment on above: Result Comment: Canc elled via OM: MD Ordered Performed By: #### L 100.0100, L300.3900, L500.4050 ####[facility] [address] [place], [address] GAP Normal 5-15 [facility] Comment on above: Result Comment: Canc elled via OM: MD Ordered Performed By: #### L 100.0100, L300.3900, L500.4050 ####[facility] [address] [place], [address] GLU Normal 70-99 [facility] Comment on above: Result Comment: Canc elled via OM: MD Ordered Performed By: #### L 100.0100, L300.3900, L500.4050 ####[facility] [address] [place], [address] Potassium Normal 3.3-5.1 [facility] Comment on above: Result Comment: Canc elled via OM: MD Ordered Performed By: #### L 100.0100, L300.3900, L500.4050 ####[facility] [address] [place], [address] T BILI Normal 0.00-1.30 [facility] Comment on above: Result Comment: Canc elled via OM: MD Ordered Performed By: #### L 100.0100, L300.3900, L500.4050 ####[facility] [address] [place], [address] T PROT Normal 5.9-8.4 [facility] Comment on above: Result Comment: Canc elled via OM: MD Ordered Performed By: #### L 100.0100, L300.3900, L500.4050 ####[facility] [address] [place], [address] Comprehensive Metabolic Profil Normal 133-145 [facility] Comment on above: Result Comment: Dveonte elled via OM: MD Ordered Performed By: #### L 100.0100, L300.3900, L500.4050 ####[facility] [address] [place], [address] Emergency Department Summary on 04-03-2025 Emergency Department Summary Normal [facility] Prothrombin Time w/INRon INR Normal [facility] Comment on above: Result Comment: Devonte elled via OM: MD Ordered Performed By: #### L 100.0100, L300.3900, L500.4050 ####[facility] [address] [place], [address] PROTIME Normal 11.7-14.9 [facility] Comment on above: Result Comment: Devonte elled via OM: MD Ordered Performed By: #### L 100.0100, L300.3900, L500.4050 ####[facility] [address] [place], [address] Bedside Glucoseon 03-31-2025 FINGERSTICK GLU 111 mg/dL High 74-106 [facility] Comment on above: Result Comment: BRISA MOROCHO OF PATIENT CARE PER NURSING PROTOCOL Performed By: #### L 501.080 ####[facility] [address] [place], [address] Discharge Instructionon 03-05 Discharge Instruction Normal [facility] Glucose measurement at bedsi deOrdered By: Roby Balderas on 03-30-2025 Glucose [Mass/Vol] 111 mg/dL High 74-106 [facility] MR/POSTOP.ANEon 03-30-2025 MR/POSTOP.ANE Normal [facility] MR/FGDDBIEC3st 03-30-2025 MR/POSTOPAN2 Normal [facility] Operative Reporton Operative Report Normal [facility] Bedside Glucoseon 03-29-2025 FINGERSTICK GLU 147 mg/dL High 74-106 [facility] Comment on above: Result Comment: BRISA MOROCHO OF PATIENT CARE PER NURSING PROTOCOL Performed By: #### L 501.080 ####[facility] [address] [place], [address] Absolute lymphocyte countOrd ered By: Day Bird on 03-11-2025 Lymphocytes Auto (Unsp spec) [#/Vol] 1.03 10*3/uL 0.83-4.51 [facility] Anion gap in Serum or Plasma Ordered By: Day iBrd on 03-11-2025 Anion gap [Moles/Vol] 11 mmol/L 5-15 [facility] Automated lymphocyte count a s percentage of total leukocytesOrdered By: Day Bird on 03-11-2025 Lymphocytes/100 WBC Auto (Unsp spec) 12.6 % Low 19-41 [facility] BUN/creatinine ratioOrdered By: Day Bird on 03-11-2025 Urea nitrogen/Creatinine [Mass ratio] 12.0 mg/mg 10-20 [facility] Basic Metabolic Profile (BMP )on 03-11-2025 BUN/CRE 12.0 RATIO Normal 10-20 [facility] Comment on above: Performed By: #### L 500.2500, L100.0100, L501.6901 ####[facility] [address] [place], [address] Calcium [Mass/Vol] 8.0 mg/dL Normal 7.6-11.0 [facility] Comment on above: Performed By: #### L 500.2500, L100.0100, L501.6901 ####[facility] [address] [place], [address] Chloride [Moles/Vol] 96 mmol/L Low 98-108 [facility] Comment on above: Performed By: #### L 500.2500, L100.0100, L501.6901 ####[facility] [address] [place], [address] CO2 [Moles/Vol] 21.4 mmol/L Normal 21.0-32.0 [facility] Comment on above: Performed By: #### L 500.2500, L100.0100, L501.6901 ####[facility] [address] [place], [address] Creatinine [Mass/Vol] 1.30 mg/dL High 0.70-1.20 [facility] Comment on above: Performed By: #### L 500.2500, L100.0100, L501.6901 ####[facility] [address] [place], [address] ECRCL 69.27 ml/min Normal 50-250 [facility] Comment on above: Performed By: #### L 500.2500, L100.0100, L501.6901 ####[facility] [address] [place], [address] GAP 11 Normal 5-15 [facility] Comment on above: Performed By: #### L 500.2500, L100.0100, L501.6901 ####[facility] [address] [place], [address] GFR/1.73 sq M.predicted among non-blacks MDRD (S/P/Bld) [Vol rate/Area] 64 mL/min/{1.73_m2} Normal >60 [facility] Comment on above: Result Comment: mL/m in/1.73m2 CKD-EPI Creatinine Equation (2020) Performed By: #### L 500.2500, L100.0100, L501.6901 ####[facility] [address] [place], [address] Glucose [Mass/Vol] 495 mg/dL Invalid Interpretation Code 70-99 [facility] Comment on above: Result Comment: Crit ical Result(s) Called DEE ROCA at: 1812 by:LAURIE??Results read back by same. Performed By: #### L 500.2500, L100.0100, L501.6901 ####[facility] [address] [place], [address] Potassium [Moles/Vol] 2.8 mmol/L Low 3.3-5.1 [facility] Comment on above: Performed By: #### L 500.2500, L100.0100, L501.6901 ####[facility] [address] [place], [address] Sodium [Moles/Vol] 128 mmol/L Low 133-145 [facility] Comment on above: Performed By: #### L 500.2500, L100.0100, L501.6901 ####[facility] [address] [place], [address] Urea nitrogen [Mass/Vol] 16 mg/dL Normal 4-19 [facility] Comment on above: Performed By: #### L 500.2500, L100.0100, L501.6901 ####[facility] [address] [place], [address] Basophil percentageOrdered B y: aDy Bird on 03-11-2025 Basophils/100 WBC (Bld) 0.6 % 0-1 [facility] Bedside Glucoseon 03-11-2025 FINGERSTICK GLU 412 mg/dL High 74-106 [facility] Comment on above: Result Comment: BRISA MOROCHO OF PATIENT CARE PER NURSING PROTOCOL Performed By: #### L 501.080 ####[facility] [address] [place], [address] FINGERSTICK GLU 494 mg/dL Invalid Interpretation Code -106 [facility] Comment on above: Result Comment: Dr Amalia webster FollowedMANAGEMENT OF PATIENT CARE PER NURSING PROTOCOL Performed By: #### L 501.080 ####[facility] [address] [place], [address] FINGERSTICK GLU > 500 Invalid Interpretation Code 74-106 [facility] Comment on above: Result Comment: Dr Amalia webster FollowedMANAGEMENT OF PATIENT CARE PER NURSING PROTOCOL Performed By: #### L 501.080 ####[facility] [address] [place], [address] Beta-Hydroxbytyrateon 2024 BETA-HYDROXYBUT 0.0 mmol/L Normal 0.0-0.3 [facility] Comment on above: Performed By: #### L 500.2500, L100.0100, L501.6901 ####[facility] [address] [place], [address] Beta-hydroxybutyrateOrdered By: Day Bird on 03-11-2025 Beta hydroxybutyrate [Mass/Vol] 0.0 mmol/L 0.0-0.3 [facility] Blood manual differential co mment interpretation (narrative result)Ordered By: Day Bird on 03-11-2025 Manual differential comment Marco Antonio (Bld) [Interp] SCANNED [facility] CBC W/Diff, Automatedon PLT EST MOD DEC Normal ADEQ [facility] Comment on above: Performed By: #### L 500.2500, L100.0100, L501.6901 ####[facility] [address] [place], [address] SMEAR COMMENT SCANNED Normal [facility] Comment on above: Performed By: #### L 500.2500, L100.0100, L501.6901 ####[facility] [address] [place], [address] Platelet mean volume (Bld) [Entitic vol] 12.1 fL High 6.2-12.0 [facility] Comment on above: Performed By: #### L 500.2500, L100.0100, L501.6901 ####[facility] [address] [place], [address] Platelets (Bld) [#/Vol] 94 10*3/uL Low 150-450 [facility] Comment on above: Performed By: #### L 500.2500, L100.0100, L501.6901 ####[facility] [address] [place], [address] Carbon dioxide, total [Moles /volume] in Central venous bloodOrdered By: Day Bird on 03-11-2025 CO2 [Moles/Vol] 21.4 mmol/L 21.0-32.0 [facility] Chloride assayOrdered By: Sarah Bird on 03-11-2025 Chloride [Moles/Vol] 96 mmol/L Low 98-108 [facility] Emergency Department Summary on 03-11-2025 Emergency Department Summary Normal [facility] Eosinophil percentageOrdered By: Day Bird on 03-11-2025 Eosinophils/100 WBC (Bld) 5.2 % High 0-5 [facility] Erythrocyte distribution wid th ratioOrdered By: Day Bird on 03-11-2025 Erythrocyte distribution width (RBC) [Ratio] 18.8 % High 11.6-14.6 [facility] Erythrocyte distribution wid th standard deviationOrdered By: Day Bird on 03-11-2025 Erythrocyte distribution width (RBC) [Ratio] 63.4 fl High 35.1-43.9 [facility] Glomerular filtration rate ( GFR) estimation/1.73 sq m using serum, plasma, or whole bOrdered By: Day Bird on 03-11-2025 GFR/1.73 sq M.predicted among non-blacks MDRD (S/P/Bld) [Vol rate/Area] 64 mL/min/{1.73_m2} >60 [facility]dered By: Alber Dunn on 03-11-2025 Glucose [Mass/Vol] 412 mg/dL High 74-106 [facility] Hematocrit Auto (Bld) [Volum e fraction]Ordered By: Day Bird on 03-11-2025 Hematocrit (Bld) [Volume fraction] 23.7 % Low 40-54 [facility] Hemoglobin measurementOrdere d By: Day Bird on 03-11-2025 Hemoglobin (Bld) [Mass/Vol] 8.0 g/dL Low 13.0-16.5 [facility] Immature granulocytes/100 WB C Auto (Bld)Ordered By: Day Bird on 03-11-2025 Immature granulocytes/100 WBC (Bld) 0.500 % 0.0-0.9 [facility] MCV (mean corpuscular volume ) determinationOrdered By: Day Bird on 03-11-2025 MCV (RBC) [Entitic vol] 92.6 fL 80-94 [facility] Mean corpuscular hemoglobin (MCH) determinationOrdered By: Day Bird on 03-11-2025 MCH (RBC) [Entitic mass] 31.3 pg 27.0-32.0 [facility] Monocyte percentageOrdered B y: Day Bird on 03-11-2025 Monocytes/100 WBC (Bld) 10.9 % High 0-10 [facility] Neutrophil percentageOrdered By: Day Bird on 03-11-2025 Neutrophils/100 WBC (Bld) 70.2 % High 47-70 [facility] Platelet countOrdered By: Sarah Bird on 03-11-2025 Platelets (Bld) [#/Vol] 94 10*3/uL Low 150-450 [facility] Platelet estimateOrdered By: Day Bird on 03-11-2025 Platelets LM Ql (Bld) MOD DEC ADEQ [facility] Potassium measurement (mass/ volume)Ordered By: Day Bird on 03-11-2025 Potassium (Unsp spec) [Mass/Vol] 2.8 mmol/L Low 3.3-5.1 [facility] RBC Auto (Bld) [#/Vol]Ordere d By: Day Bird on 03-11-2025 RBC (Bld) [#/Vol] 2.56 10*6/uL Low 4.6-6.2 [facility] Serum creatinine measurement (mass/volume)Ordered By: Day Bird on 03-11-2025 Creatinine [Mass/Vol] 1.30 mg/dL High 0.70-1.20 [facility] Serum glucose measurement (m ass/volume)Ordered By: Day Pelon on 03-11-2025 Glucose [Mass/Vol] 495 mg/dL High 70-99 [facility] Serum or plasma calcium roosevelt urement (mass/volume)Ordered By: Day Bird on 03-11-2025 Calcium [Mass/Vol] 8.0 mg/dL 7.6-11.0 [facility] Serum or plasma urea nitroge n measurement (mass/volume)Ordered By: Day Bird on 03-11-2025 Urea nitrogen [Mass/Vol] 16 mg/dL 4-19 [facility] Sodium levelOrdered By: Daydevante Bird on 03-11-2025 Sodium [Moles/Vol] 128 mmol/L Low 133-145 [facility] White blood cell (WBC) count Ordered By: Day Bird on 03-11-2025 WBC (Bld) [#/Vol] 8.2 10*3/uL 4.4-11.0 [facility] MR/PAT.ANEon 03-10-2025 MR/PAT.ANE Normal [facility] Surgery Visit Reporton 03-10 Surgery Visit Report Normal [facility] Paracentesis with USon 03-04 Paracentesis with US Normal [facility] Culture, Anaerobic Any Sourc iliana 03-03-2025 CUAN No growth in 5 days. Normal [facility] Comment on above: Performed By: #### M 100.2900, M100.4001, M100.2000, L200.0200, L400.0001 ####[facility] [address] [place], [address] Body Fluid Cell Count+Diffon 02-28-2025 PATH COMM/BF Reviewed Normal [facility] Comment on above: Order Comment: The r eference range and other method performancespecifications have not been established for this bodyfluid. The test must be integrated into the clinicalcontext for interpretation. Result Comment: NO M ALIGNANT CELLS IDENTIFIED.Pamella Umana MD 02/28/2025 AMENDED REPORT 02/28/25 1556 PATH COMM/BF previously reported as: May follow Performed By: #### M 100.2900, M100.4001, M100.2000, L200.0200, L400.0001 ####[facility] [address] [place], [address] Absolute lymphocyte countOrd ered By: Rick Carlin on 02-27-2025 Lymphocytes Auto (Unsp spec) [#/Vol] 1.53 10*3/uL 0.83-4.51 [facility] Anion gap in Serum or Plasma Ordered By: Rick Carlin on 02-27-2025 Anion gap [Moles/Vol] 10 mmol/L 5-15 [facility] Automated lymphocyte count a s percentage of total leukocytesOrdered By: Rick Carlin on 02-27-2025 Lymphocytes/100 WBC Auto (Unsp spec) 18.6 % Low 19-41 [facility] BUN/creatinine ratioOrdered By: Rick Carlin on 02-27-2025 Urea nitrogen/Creatinine [Mass ratio] 13.0 mg/mg 10-20 [facility] Basophil percentageOrdered B y: Rick Carlin on 02-27-2025 Basophils/100 WBC (Bld) 0.9 % 0-1 [facility] Bedside Glucoseon 02-27-2025 FINGERSTICK GLU 368 mg/dL High 74-106 [facility] Comment on above: Result Comment: BRISA GEMENT OF PATIENT CARE PER NURSING PROTOCOL Performed By: #### L 501.080 ####[facility] [address] [place], [address] FINGERSTICK GLU 265 mg/dL High 74-106 [facility] Comment on above: Result Comment: BRISA GEMENT OF PATIENT CARE PER NURSING PROTOCOL Performed By: #### L 501.080 ####[facility] [address] [place], [address] Bilirubin, totalOrdered By: Rick Carlin on 02-27-2025 Bilirubin [Mass/Vol] 4.15 mg/dL High 0.00-1.30 [facility] Blood manual differential co mment interpretation (narrative result)Ordered By: Rick Carlin on 02-27-2025 Manual differential comment Marco Antonio (Bld) [Interp] SCANNED [facility] Blood polychromasia detectio n by light microscopyOrdered By: Rick Carlin on 02-27-2025 Polychromasia LM Ql (Bld) 1+ [facility] CBC W/Diff, Automatedon 02-02 Anisocytosis Ql (Bld) 2+ Normal [facility] Comment on above: Performed By: #### L 500.4050, L100.0100 ####[facility] [address] [place], [address] OVALOCYTE 1+ Normal [facility] Comment on above: Performed By: #### L 500.4050, L100.0100 ####[facility] [address] [place], [address] PLT EST SLT DEC Normal ADEQ [facility] Comment on above: Performed By: #### L 500.4050, L100.0100 ####[facility] [address] [place], [address] POLYCHROMASIA 1+ Normal [facility] Comment on above: Performed By: #### L 500.4050, L100.0100 ####[facility] [address] [place], [address] SMEAR COMMENT SCANNED Normal [facility] Comment on above: Performed By: #### L 500.4050, L100.0100 ####[facility] [address] [place], [address] Carbon dioxide, total [Moles /volume] in Central venous bloodOrdered By: Rick Carlin on 02-27-2025 CO2 [Moles/Vol] 20.8 mmol/L Low 21.0-32.0 [facility] Chloride assayOrdered By: Lissette Carlin on 02-27-2025 Chloride [Moles/Vol] 101 mmol/L 98-108 [facility] Comprehensive Metabolic Prof ilon 02-27-2025 Albumin [Mass/Vol] 2.2 g/dL Low 3.5-5.0 [facility] Comment on above: Performed By: #### L 500.4050, L100.0100 ####[facility] [address] [place], [address] Albumin/Globulin [Mass ratio] 0.7 {ratio} Low 0.9-2.4 [facility] Comment on above: Performed By: #### L 500.4050, L100.0100 ####[facility] [address] [place], [address] ALK PHOS 244 U/L High 40-129 [facility] Comment on above: Performed By: #### L 500.4050, L100.0100 ####[facility] [address] [place], [address] ALT [Catalytic activity/Vol] 43 U/L Normal <=46 [facility] Comment on above: Performed By: #### L 500.4050, L100.0100 ####[facility] [address] [place], [address] AST [Catalytic activity/Vol] 65 U/L High <=37 [facility] Comment on above: Performed By: #### L 500.4050, L100.0100 ####[facility] [address] [place], [address] Bilirubin [Mass/Vol] 4.15 mg/dL High 0.00-1.30 [facility] Comment on above: Performed By: #### L 500.4050, L100.0100 ####[facility] [address] [place], [address] BUN/CRE 13.0 RATIO Normal 10-20 [facility] Comment on above: Performed By: #### L 500.4050, L100.0100 ####[facility] [address] [place], [address] Calcium [Mass/Vol] 8.0 mg/dL Normal 7.6-11.0 [facility] Comment on above: Performed By: #### L 500.4050, L100.0100 ####[facility] [address] [place], [address] Chloride [Moles/Vol] 101 mmol/L Normal 98-108 [facility] Comment on above: Performed By: #### L 500.4050, L100.0100 ####[facility] [address] [place], [address] CO2 [Moles/Vol] 20.8 mmol/L Low 21.0-32.0 [facility] Comment on above: Performed By: #### L 500.4050, L100.0100 ####[facility] [address] [place], [address] Creatinine [Mass/Vol] 1.14 mg/dL Normal 0.70-1.20 [facility] Comment on above: Performed By: #### L 500.4050, L100.0100 ####[facility] [address] [place], [address] ECRCL 78.45 ml/min Normal 50-250 [facility] Comment on above: Performed By: #### L 500.4050, L100.0100 ####[facility] [address] [place], [address] GAP 10 Normal 5-15 [facility] Comment on above: Performed By: #### L 500.4050, L100.0100 ####[facility] [address] [place], [address] GFR/1.73 sq M.predicted among non-blacks MDRD (S/P/Bld) [Vol rate/Area] 75 mL/min/{1.73_m2} Normal >60 [facility] Comment on above: Result Comment: mL/m in/1.73m2 CKD-EPI Creatinine Equation (2020) Performed By: #### L 500.4050, L100.0100 ####[facility] [address] [place], [address] Globulin (S) [Mass/Vol] 3.3 g/dL Normal 2.2-4.2 [facility] Comment on above: Performed By: #### L 500.4050, L100.0100 ####[facility] [address] [place], [address] Glucose [Mass/Vol] 272 mg/dL High 70-99 [facility] Comment on above: Performed By: #### L 500.4050, L100.0100 ####[facility] [address] [place], [address] Potassium [Moles/Vol] 3.2 mmol/L Low 3.3-5.1 [facility] Comment on above: Performed By: #### L 500.4050, L100.0100 ####[facility] [address] [place], [address] Sodium [Moles/Vol] 131 mmol/L Low 133-145 [facility] Comment on above: Performed By: #### L 500.4050, L100.0100 ####[facility] [address] [place], [address] T PROT 5.5 g/dL Low 5.9-8.4 [facility] Comment on above: Performed By: #### L 500.4050, L100.0100 ####[facility] [address] [place], [address] Urea nitrogen [Mass/Vol] 15 mg/dL Normal 4-19 [facility] Comment on above: Performed By: #### L 500.4050, L100.0100 ####[facility] [address] [place], [address] Discharge Instructionon 02-02 Discharge Instruction Normal [facility] Eosinophil percentageOrdered By: Rick Carlin on 02-27-2025 Eosinophils/100 WBC (Bld) 6.2 % High 0-5 [facility] Erythrocyte distribution wid th ratioOrdered By: Rick Carlin on 02-27-2025 Erythrocyte distribution width (RBC) [Ratio] 21.7 % High 11.6-14.6 [facility] Erythrocyte distribution wid th standard deviationOrdered By: Rick Carlin on 02-27-2025 Erythrocyte distribution width (RBC) [Ratio] 68.2 fl High 35.1-43.9 [facility] Glomerular filtration rate ( GFR) estimation/1.73 sq m using serum, plasma, or whole bOrdered By: Rick Carlin on 02-27-2025 GFR/1.73 sq M.predicted among non-blacks MDRD (S/P/Bld) [Vol rate/Area] 75 mL/min/{1.73_m2} >60 [facility] de[facility]dered By: Rick Carlin on 02-27-2025 Glucose [Mass/Vol] 368 mg/dL High 74-106 [facility] Hematocrit Auto (Bld) [Volum e fraction]Ordered By: Rick Carlin on 02-27-2025 Hematocrit (Bld) [Volume fraction] 24.0 % Low 40-54 [facility] Hemoglobin measurementOrdere d By: Rick Carlin on 02-27-2025 Hemoglobin (Bld) [Mass/Vol] 8.2 g/dL Low 13.0-16.5 [facility] Immature granulocytes/100 WB C Auto (Bld)Ordered By: Rick Carlin on 02-27-2025 Immature granulocytes/100 WBC (Bld) 0.400 % 0.0-0.9 [facility] MCV (mean corpuscular volume ) determinationOrdered By: Rick Carlin on 02-27-2025 MCV (RBC) [Entitic vol] 89.6 fL 80-94 [facility] Mean corpuscular hemoglobin (MCH) determinationOrdered By: Rick Carlin on 02-27-2025 MCH (RBC) [Entitic mass] 30.6 pg 27.0-32.0 [facility] Monocyte percentageOrdered B y: Rick Carlin on 02-27-2025 Monocytes/100 WBC (Bld) 12.5 % High 0-10 [facility] Neutrophil percentageOrdered By: Rick Carlin on 02-27-2025 Neutrophils/100 WBC (Bld) 61.4 % 47-70 [facility] No Panel InformationOrdered By: Rick Carlin on 02-27-2025 2+ [facility] 65 U/L High <38 [facility] Ovalocyte detectionOrdered B y: Rick Carlin on 02-27-2025 Ovalocytes LM Ql (Bld) 1+ [facility] Platelet countOrdered By: Lissette Carlin on 02-27-2025 Platelets (Bld) [#/Vol] 133 10*3/uL Low 150-450 [facility] Platelet estimateOrdered By: Rick Carlin on 02-27-2025 Platelets LM Ql (Bld) SLT DEC ADEQ [facility] Potassium measurement (mass/ volume)Ordered By: Rick Carlin on 02-27-2025 Potassium (Unsp spec) [Mass/Vol] 3.2 mmol/L Low 3.3-5.1 [facility] RBC Auto (Bld) [#/Vol]Ordere d By: Rick Carlin on 02-27-2025 RBC (Bld) [#/Vol] 2.68 10*6/uL Low 4.6-6.2 [facility] Serum creatinine measurement (mass/volume)Ordered By: Rick Carlin on 02-27-2025 Creatinine [Mass/Vol] 1.14 mg/dL 0.70-1.20 [facility] Serum globulin measurementOr dered By: Rick Carlin on 02-27-2025 Globulin (S) [Mass/Vol] 3.3 g/dL 2.2-4.2 [facility] Serum glucose measurement (m ass/volume)Ordered By: Rick Carlin on 02-27-2025 Glucose [Mass/Vol] 272 mg/dL High 70-99 [facility] Serum or plasma alanine thomas otransferase (ALT) measurementOrdered By: Rick Carlin on 02-27-2025 ALT [Catalytic activity/Vol] 43 U/L <47 [facility] Serum or plasma albumin roosevelt urement (mass/volume)Ordered By: Rick Carlin on 02-27-2025 Albumin [Mass/Vol] 2.2 g/dL Low 3.5-5.0 [facility] Serum or plasma albumin/glob ulin mass ratioOrdered By: Rick Carlin on 02-27-2025 Albumin/Globulin [Mass ratio] 0.7 {ratio} Low 0.9-2.4 [facility] Serum or plasma alkaline kendrick sphatase measurementOrdered By: Rick Carlin on 02-27-2025 ALP [Catalytic activity/Vol] 244 U/L High 40-129 [facility] Serum or plasma calcium roosevelt urement (mass/volume)Ordered By: Rick Carlin on 02-27-2025 Calcium [Mass/Vol] 8.0 mg/dL 7.6-11.0 [facility] Serum or plasma urea nitroge n measurement (mass/volume)Ordered By: Rick Carlin on 02-27-2025 Urea nitrogen [Mass/Vol] 15 mg/dL 4-19 [facility] Sodium levelOrdered By: Rick Carlin on 02-27-2025 Sodium [Moles/Vol] 131 mmol/L Low 133-145 [facility] Total proteinOrdered By: Meredith Carlin on 02-27-2025 Protein [Mass/Vol] 5.5 g/dL Low 5.9-8.4 [facility] White blood cell (WBC) count Ordered By: Rick Carlin on 02-27-2025 WBC (Bld) [#/Vol] 8.2 10*3/uL 4.4-11.0 [facility] Bedside Glucoseon 02-26-2025 FINGERSTICK GLU 323 mg/dL High 74-106 [facility] Comment on above: Result Comment: BRISA MOROCHO OF PATIENT CARE PER NURSING PROTOCOL Performed By: #### L 501.080 ####[facility] [address] [place], [address] FINGERSTICK GLU 359 mg/dL High 74-106 [facility] Comment on above: Result Comment: BRISA GEMENT OF PATIENT CARE PER NURSING PROTOCOL Performed By: #### L 501.080 ####[facility] [address] [place], [address] FINGERSTICK GLU 344 mg/dL High 74-106 [facility] Comment on above: Result Comment: BRISA GEMENT OF PATIENT CARE PER NURSING PROTOCOL Performed By: #### L 501.080 ####[facility] [address] [place], [address] FINGERSTICK GLU 267 mg/dL High 74-106 [facility] Comment on above: Result Comment: BRISA GEMENT OF PATIENT CARE PER NURSING PROTOCOL Performed By: #### L 501.080 ####[facility] [address] [place], [address] Body Fluid Culton 02-26-2025 BFC Culture exhibits no growth. Normal [facility] Comment on above: Performed By: #### M 100.2900, M100.4001, M100.2000, L200.0200, L400.0001 ####[facility] [address] [place], [address] CBC W/Diff, Automatedon 07- Anisocytosis Ql (Bld) 2+ Normal [facility] Comment on above: Performed By: #### L 100.0100, L500.4050 ####[facility] [address] [place], [address] SMEAR COMMENT SCANNED Normal [facility] Comment on above: Performed By: #### L 100.0100, L500.4050 ####[facility] [address] [place], [address] Comprehensive Metabolic Prof ilon 02-26-2025 Albumin [Mass/Vol] 2.4 g/dL Low 3.5-5.0 [facility] Comment on above: Performed By: #### L 100.0100, L500.4050 ####[facility] [address] [place], [address] Albumin/Globulin [Mass ratio] 0.7 {ratio} Low 0.9-2.4 [facility] Comment on above: Performed By: #### L 100.0100, L500.4050 ####[facility] [address] [place], [address] ALK PHOS 258 U/L High 40-129 [facility] Comment on above: Performed By: #### L 100.0100, L500.4050 ####[facility] [address] [place], [address] ALT [Catalytic activity/Vol] 50 U/L High <=46 [facility] Comment on above: Performed By: #### L 100.0100, L500.4050 ####[facility] [address] [place], [address] AST [Catalytic activity/Vol] 78 U/L High <=37 [facility] Comment on above: Performed By: #### L 100.0100, L500.4050 ####[facility] [address] [place], [address] Bilirubin [Mass/Vol] 5.33 mg/dL High 0.00-1.30 [facility] Comment on above: Performed By: #### L 100.0100, L500.4050 ####[facility] [address] [place], [address] BUN/CRE 12.9 RATIO Normal 10-20 [facility] Comment on above: Performed By: #### L 100.0100, L500.4050 ####[facility] [address] [place], [address] Calcium [Mass/Vol] 8.3 mg/dL Normal 7.6-11.0 [facility] Comment on above: Performed By: #### L 100.0100, L500.4050 ####[facility] [address] [place], [address] Chloride [Moles/Vol] 102 mmol/L Normal 98-108 [facility] Comment on above: Performed By: #### L 100.0100, L500.4050 ####[facility] [address] [place], [address] CO2 [Moles/Vol] 19.6 mmol/L Low 21.0-32.0 [facility] Comment on above: Performed By: #### L 100.0100, L500.4050 ####[facility] [address] [place], [address] Creatinine [Mass/Vol] 1.03 mg/dL Normal 0.70-1.20 [facility] Comment on above: Result Comment: Icte daquan present, Results may be affected. Performed By: #### L 100.0100, L500.4050 ####[facility] [address] [place], [address] ECRCL 86.83 ml/min Normal 50-250 [facility] Comment on above: Performed By: #### L 100.0100, L500.4050 ####[facility] [address] [place], [address] GAP 12 Normal 5-15 [facility] Comment on above: Performed By: #### L 100.0100, L500.4050 ####[facility] [address] [place], [address] GFR/1.73 sq M.predicted among non-blacks MDRD (S/P/Bld) [Vol rate/Area] 84 mL/min/{1.73_m2} Normal >60 [facility] Comment on above: Result Comment: mL/m in/1.73m2 CKD-EPI Creatinine Equation (2020) Performed By: #### L 100.0100, L500.4050 ####[facility] [address] [place], [address] Globulin (S) [Mass/Vol] 3.6 g/dL Normal 2.2-4.2 [facility] Comment on above: Performed By: #### L 100.0100, L500.4050 ####[facility] [address] [place], [address] Glucose [Mass/Vol] 269 mg/dL High 70-99 [facility] Comment on above: Performed By: #### L 100.0100, L500.4050 ####[facility] [address] [place], [address] Potassium [Moles/Vol] 3.0 mmol/L Low 3.3-5.1 [facility] Comment on above: Performed By: #### L 100.0100, L500.4050 ####[facility] [address] [place], [address] Sodium [Moles/Vol] 133 mmol/L Normal 133-145 [facility] Comment on above: Performed By: #### L 100.0100, L500.4050 ####[facility] [address] [place], [address] T PROT 6.0 g/dL Normal 5.9-8.4 [facility] Comment on above: Performed By: #### L 100.0100, L500.4050 ####[facility] [address] [place], [address] Urea nitrogen [Mass/Vol] 13 mg/dL Normal 4-19 [facility] Comment on above: Performed By: #### L 100.0100, L500.4050 ####[facility] [address] [place], [address] Gram Stainon 02-26-2025 GS Centrifuged Specimen ? Culture performed on centrifuged specimen Gram Stain No organisms seen Rare White Blood Cells Normal [facility] Comment on above: Performed By: #### M 100.2900, M100.4001, M100.2000, L200.0200, L400.0001 ####[facility] [address] [place], [address] Prothrombin Time w/INRon INR Coag (PPP) [Relative time] 2.1 {INR} Normal [facility] Comment on above: Order Comment: Comme nts: Add onto previous labs if possible Performed By: #### L 300.3900 ####[facility] [address] [place], [address] PT Coag (PPP) [Time] 23.7 s High 11.7-14.9 [facility] Comment on above: Order Comment: Comme nts: Add onto previous labs if possible Performed By: #### L 300.3900 ####[facility] [address] [place], [address] Prothrombin timeOrdered By: Kathie Powers on 02-26-2025 PT Coag (PPP) [Time] 23.7 s High 11.7-14.9 [facility] Ammoniaon 02-25-2025 Ammonia (P) [Moles/Vol] 127.0 umol/L High 16-60 [facility] Comment on above: Performed By: #### L 503.5510, L100.0100, L501.2450, L500.4050 ####[facility] [address] [place], [address] Anaerobic cultureOrdered By: Herberth Carlson on 02-25-2025 Bacteria identified Anaer cx Nom (Unsp spec) No growth in 5 days. [facility] Bedside Glucoseon 02-25-2025 FINGERSTICK GLU 271 mg/dL High 74-106 [facility] Comment on above: Result Comment: BRISA GEMENT OF PATIENT CARE PER NURSING PROTOCOL Performed By: #### L 501.080 ####[facility] [address] [place], [place], [address] FINGERSTICK GLU 192 mg/dL High 74-106 [facility] Comment on above: Result Comment: BRISA GEMENT OF PATIENT CARE PER NURSING PROTOCOL Performed By: #### L 501.080 ####[facility] [address] [place], [place], [address] Bilirubin Test strip Ql (U)O rdered By: Herberth Carlson on 02-25-2025 Bilirubin Ql (U) 3 mg/dL High Negative [facility] Body fluid appearance (nomin al result)Ordered By: Herberth Carlson on 02-25-2025 Appearance (Body fld) SL CLDY [facility] Body fluid color determinati onOrdered By: Herberth Carlson on 02-25-2025 Color (Body fld) YELLOW [facility] Body fluid cultureOrdered By : Herberth Carlson on 02-25-2025 Microbial culture, body fluid Culture exhibits no growth. [facility] Body fluid leukocytes count (number/volume)Ordered By: Herberth Carlson on 02-25-2025 WBC (Body fld) [#/Vol] 0.153 10*3/uL [facility] Body fluid lymphocytes/100 l eukocytesOrdered By: Herberth Carlson on 02-25-2025 Lymphocytes/100 WBC (Body fld) 6 % [facility] Body fluid macrophage countO rdered By: Herberth Carlson on 02-25-2025 Macrophages (Body fld) [#/Vol] 75 % [facility] Body fluid mesothelial cell percentageOrdered By: Herberth Carlson on 02-25-2025 Mesothelial cells/100 WBC (Body fld) 10 % [facility] Body fluid mononuclear cell percentageOrdered By: Herberth Carlson on 02-25-2025 Mononuclear cells/100 WBC (Body fld) 90.1 % [facility] Body fluid segmented neutrop hils count (number/volume)Ordered By: Herberth Carlson on 02-25-2025 Segmented neutrophils (Body fld) [#/Vol] 4 % [facility] Body fluid total cell countO rdered By: Herberth Carlson on 02-25-2025 Cells Counted Total (Body fld) [#] 0.207 10^3/ul [facility] CBC W/Diff, Automatedon 02-02 Anisocytosis Ql (Bld) 1+ Normal [facility] Comment on above: Performed By: #### L 503.5510, L100.0100, L501.2450, L500.4050 ####[facility] [address] [place], [address] Comprehensive Metabolic Prof ilon 02-25-2025 Albumin [Mass/Vol] 2.0 g/dL Low 3.5-5.0 [facility] Comment on above: Performed By: #### L 503.5510, L100.0100, L501.2450, L500.4050 ####[facility] [address] [place], [address] Albumin/Globulin [Mass ratio] 0.5 {ratio} Low 0.9-2.4 [facility] Comment on above: Performed By: #### L 503.5510, L100.0100, L501.2450, L500.4050 ####[facility] [address] [place], [address] ALK PHOS 249 U/L High 40-129 [facility] Comment on above: Performed By: #### L 503.5510, L100.0100, L501.2450, L500.4050 ####[facility] [address] [place], [address] ALT [Catalytic activity/Vol] 51 U/L High <=46 [facility] Comment on above: Result Comment: Hemo lysis present, Results??could be affected.?? Performed By: #### L 503.5510, L100.0100, L501.2450, L500.4050 ####[facility] [address] [place], [address] AST [Catalytic activity/Vol] 97 U/L High <=37 [facility] Comment on above: Result Comment: Hemo lysis present, Results??could be affected.?? Performed By: #### L 503.5510, L100.0100, L501.2450, L500.4050 ####[facility] [address] [place], [address] Bilirubin [Mass/Vol] 4.99 mg/dL High 0.00-1.30 [facility] Comment on above: Performed By: #### L 503.5510, L100.0100, L501.2450, L500.4050 ####[facility] [address] [place], [address] BUN/CRE 8.9 RATIO Low 10-20 [facility] Comment on above: Performed By: #### L 503.5510, L100.0100, L501.2450, L500.4050 ####[facility] [address] [place], [address] Calcium [Mass/Vol] 8.1 mg/dL Normal 7.6-11.0 [facility] Comment on above: Performed By: #### L 503.5510, L100.0100, L501.2450, L500.4050 ####[facility] [address] [place], [address] Chloride [Moles/Vol] 102 mmol/L Normal 98-108 [facility] Comment on above: Performed By: #### L 503.5510, L100.0100, L501.2450, L500.4050 ####[facility] [address] [place], [address] CO2 [Moles/Vol] 17.5 mmol/L Low 21.0-32.0 [facility] Comment on above: Performed By: #### L 503.5510, L100.0100, L501.2450, L500.4050 ####[facility] [address] [place], [address] Creatinine [Mass/Vol] 1.07 mg/dL Normal 0.70-1.20 [facility] Comment on above: Result Comment: Icte daquan present, Results may be affected. Performed By: #### L 503.5510, L100.0100, L501.2450, L500.4050 ####[facility] [address] [place], [address] ECRCL 86.96 ml/min Normal 50-250 [facility] Comment on above: Performed By: #### L 503.5510, L100.0100, L501.2450, L500.4050 ####[facility] [address] [place], [address] GAP 12 Normal 5-15 [facility] Comment on above: Performed By: #### L 503.5510, L100.0100, L501.2450, L500.4050 ####[facility] [address] [place], [address] GFR/1.73 sq M.predicted among non-blacks MDRD (S/P/Bld) [Vol rate/Area] 80 mL/min/{1.73_m2} Normal >60 [facility] Comment on above: Result Comment: mL/m in/1.73m2 CKD-EPI Creatinine Equation (2020) Performed By: #### L 503.5510, L100.0100, L501.2450, L500.4050 ####[facility] [address] [place], [address] Globulin (S) [Mass/Vol] 3.9 g/dL Normal 2.2-4.2 [facility] Comment on above: Performed By: #### L 503.5510, L100.0100, L501.2450, L500.4050 ####[facility] [address] [place], [address] Glucose [Mass/Vol] 225 mg/dL High 70-99 [facility] Comment on above: Performed By: #### L 503.5510, L100.0100, L501.2450, L500.4050 ####[facility] [address] [place], [address] Potassium [Moles/Vol] 3.7 mmol/L Normal 3.3-5.1 [facility] Comment on above: Result Comment: Hemo lysis present, Results??could be affected.?? Performed By: #### L 503.5510, L100.0100, L501.2450, L500.4050 ####[facility] [address] [place], [address] Sodium [Moles/Vol] 131 mmol/L Low 133-145 [facility] Comment on above: Performed By: #### L 503.5510, L100.0100, L501.2450, L500.4050 ####[facility] [address] [place], [address] T PROT 5.9 g/dL Normal 5.9-8.4 [facility] Comment on above: Performed By: #### L 503.5510, L100.0100, L501.2450, L500.4050 ####[facility] [address] [place], [address] Urea nitrogen [Mass/Vol] 10 mg/dL Normal 4-19 [facility] Comment on above: Performed By: #### L 503.5510, L100.0100, L501.2450, L500.4050 ####[facility] [address] [place], [place], [address] Emergency Department Summary on 02-25-2025 Emergency Department Summary Normal [facility] Gram stainOrdered By: Lopez Carlson on 02-25-2025 Microscopic observation Gram stain Nom (Unsp spec) [facility] H AND P Exam - Hospitaliston 02-25-2025 H&P Exam - Hospitalist Normal [facility] Ketones Test strip Ql (U)Ord ered By: Herberth Carlson on 02-25-2025 Ketones Ql (U) 5 mg/dl High Negative [facility] Lipaseon 02-25-2025 Lipase [Catalytic activity/Vol] 64 U/L Normal 13-75 [facility] Comment on above: Result Comment: Siddhartha bhat note:LIPASE revised reference range effective 22.New Lipase methodology. Expected to produce lower valuesthan the previous assay method.NEW Reference Range: 13 - 75 U/L Performed By: #### L 503.5510, L100.0100, L501.2450, L500.4050 ####[facility] [address] [place], [place], [address] MR/CON.PCM.GIon 02-25-2025 MR/CON.PCM.GI Normal [facility] Monocyte detectionOrdered By : Herberth Carlson on 02-25-2025 Monocytes/100 WBC (Bld) 5 % [facility] Mucus LM Ql (Urine sed)Order ed By: Herberth Carlson on 02-25-2025 Mucus Ql (Urine sed) 0 SEEN /hpf [facility] Nitrite Test strip Ql (U)Ord ered By: Herberth Carlson on 02-25-2025 Nitrite Ql (U) Negative Negative [facility] No Panel InformationOrdered By: Herberth Carlson on 02-25-2025 283 /mm3 [facility] SEE COMMENT [facility] Pathologist interpretation o f Body fluid testsOrdered By: Herberth Carlson on 02-25-2025 Pathologist interpretation (Body fld) [Interp] Reviewed [facility] Protein Test strip Ql (U)Ord ered By: Herberth Carlson on 02-25-2025 Protein Ql (U) 100 mg/dl High Negative [facility] Specimen source identificati on of body fluidOrdered By: Herberth Carlson on 02-25-2025 Specimen source Nom (Body fld) ASCITES FLUID [facility] Squamous epithelial cells de tection in urine sediment by light microscopyOrdered By: Herberth Carlson on 02-25-2025 Epithelial cells.squamous LM Ql (Urine sed) 0 SEEN /hpf 0-5 [facility] Urinalysis, Completeon 02-25 RBC > 100 SEEN Normal 0-5 [facility] Comment on above: Order Comment: COLOR OF URINE MAY AFFECT DIPSTICK RESULTS.CLEAN CATCH Result Comment: Micr oscopic field is filled. Other elements may beobscured. Performed By: #### M 100.2900, M100.4001, M100.2000, L200.0200, L400.0001 ####[facility] [address] [place], [address] WBC >100 SEEN Normal 0-5 [facility] Comment on above: Order Comment: COLOR OF URINE MAY AFFECT DIPSTICK RESULTS.CLEAN CATCH Result Comment: Micr oscopic field is filled. Other elements may beobscured. Performed By: #### M 100.2900, M100.4001, M100.2000, L200.0200, L400.0001 ####[facility] [address] [place], [address] YEAST 2+ /hpf Normal None Seen [facility] Comment on above: Order Comment: COLOR OF URINE MAY AFFECT DIPSTICK RESULTS.CLEAN CATCH Performed By: #### M 100.2900, M100.4001, M100.2000, L200.0200, L400.0001 ####[facility] [address] [place], [address] BACTERIA 0 SEEN Normal None Seen [facility] Comment on above: Order Comment: COLOR OF URINE MAY AFFECT DIPSTICK RESULTS.CLEAN CATCH Performed By: #### M 100.2900, M100.4001, M100.2000, L200.0200, L400.0001 ####[facility] [address] [place], [address] EPI,SQUAMOUS 0 SEEN Normal 0-5 [facility] Comment on above: Order Comment: COLOR OF URINE MAY AFFECT DIPSTICK RESULTS.CLEAN CATCH Performed By: #### M 100.2900, M100.4001, M100.2000, L200.0200, L400.0001 ####[facility] [address] [place], [address] Mucus Ql (Urine sed) 0 SEEN Normal [facility] Comment on above: Order Comment: COLOR OF URINE MAY AFFECT DIPSTICK RESULTS.CLEAN CATCH Performed By: #### M 100.2900, M100.4001, M100.2000, L200.0200, L400.0001 ####[facility] [address] [place], [address] Urine clarityOrdered By: Digna Carlson on 02-25-2025 Clarity (U) Cloudy Clear [facility] Urine color determinationOrd ered By: Herberth Carlson on 02-25-2025 Color (U) Red Yellow [facility] Urine glucose detectionOrder ed By: Herberth Carlson on 02-25-2025 Glucose Ql (U) 100 mg/dl High Normal [facility] Urine leukocyte esterase det ection by dipstickOrdered By: Herberth Carlson on 02-25-2025 Leukocyte esterase Test strip Ql (U) 500 /ul High Negative [facility] Urine pHOrdered By: Herberth Carlson on 02-25-2025 pH (U) 6.5 [pH] 5.0 - 8.0 [facility] Urine sediment bacteria coun t by microscopy (number/high power field)Ordered By: Herberth Carlson on 02-25-2025 Bacteria LM.HPF (Urine sed) [#/Area] 0 /[HPF] None Seen [facility] Urine sediment yeast count b y microscopy (number/high powered field)Ordered By: Herberth Carlson on 02-25-2025 Yeast LM.HPF (Urine sed) [#/Area] 2 /[HPF] None Seen [facility] Urine specific gravity measu rementOrdered By: Herberth Carlson on 02-25-2025 Specific gravity (U) [Rel density] 1.015 1.002-1.030 [facility] Urine urobilinogen measureme ntOrdered By: Herberth Carlson on 02-25-2025 Urobilinogen Ql (U) Normal mg/dl Normal [facility] Venous blood ammonia measure mentOrdered By: Herberth Carlson on 02-25-2025 Ammonia (P) [Moles/Vol] 127.0 umol/L High 16-60 [facility] White blood cell countOrdere d By: Herberth Carlson on 02-25-2025 White blood cell count >100 SEEN /hpf 0-5 [facility] Hepatitis Panel Acuteon 02-01 COMMENT Comment Normal . [facility] Comment on above: Result Comment: Not infected with HCV unless early or acute infection issuspected (which may be delayed in an immunocompromisedindividual), or other evidence exists to indicate HCVinfection.Performed at: [facility] [id number] Director: Buck Ivy PhD, Phone: [phone] Performed By: #### L 100.0100, L500.4050, L3000.0375, L503.5510 ####[facility] [address] [place] [id number] HEP B CORE,IgM Negative Normal Negative [facility] Comment on above: Performed By: #### L 100.0100, L500.4050, L3000.0375, L503.5510 ####[facility] [address] [place], [place], [id number] HEP B SURF AG Negative Normal Negative [facility] Comment on above: Performed By: #### L 100.0100, L500.4050, L3000.0375, L503.5510 ####[facility] [address] [facility] [id number] HEP C VIRUS AB Non-Reactive Normal Non Reactive [facility] Comment on above: Performed By: #### L 100.0100, L500.4050, L3000.0375, L503.5510 ####[facility] [address] [place], [address] HEPATITIS A-IgM Negative Normal Negative [facility] Comment on above: Result Comment: A ne gative anti-HAV IgM result suggests no recent orcurrent HAV infection. Performed By: #### L 100.0100, L500.4050, L3000.0375, L503.5510 ####[facility] [address] [place], [address] Anion gap in Serum or Plasma Ordered By: Jae Ash on 02-17-2025 Anion gap [Moles/Vol] 10 mmol/L 5-15 [facility] BUN/creatinine ratioOrdered By: Jae Ash on 02-17-2025 Urea nitrogen/Creatinine [Mass ratio] 9.7 mg/mg Low 10-20 [facility] Bedside Glucoseon 02-17-2025 FINGERSTICK GLU 194 mg/dL High 74-106 [facility] Comment on above: Result Comment: BRISA GEMENT OF PATIENT CARE PER NURSING PROTOCOL Performed By: #### L 501.080 ####[facility] [address] [place], [place], [id number] Bilirubin, totalOrdered By: Jae Ash on 02-17-2025 Bilirubin [Mass/Vol] 6.79 mg/dL High 0.00-1.30 [facility] Blood manual differential co mment interpretation (narrative result)Ordered By: Jae Ash on 02-17-2025 Manual differential comment Marco Antonio (Bld) [Interp] SCANNED [facility] CBC-Complete Blood Cnt No Di ffon 02-17-2025 Erythrocyte distribution width (RBC) [Ratio] 19.0 % High 11.6-14.6 [facility] Comment on above: Performed By: #### L 500.4050, L100.4500, L300.3900, L100.0500 ####[facility] [address] [place], [address] Hematocrit (Bld) [Volume fraction] 21.9 % Low 40-54 [facility] Comment on above: Performed By: #### L 500.4050, L100.4500, L300.3900, L100.0500 ####[facility] [address] [place], [address] Hemoglobin (Bld) [Mass/Vol] 7.7 g/dL Low 13.0-16.5 [facility] Comment on above: Performed By: #### L 500.4050, L100.4500, L300.3900, L100.0500 ####[facility] [address] [place], [address] MCH (RBC) [Entitic mass] 30.0 pg Normal 27.0-32.0 [facility] Comment on above: Performed By: #### L 500.4050, L100.4500, L300.3900, L100.0500 ####[facility] [address] [place], [address] MCHC (RBC) [Mass/Vol] 35.2 g/dL Normal 32-36 [facility] Comment on above: Performed By: #### L 500.4050, L100.4500, L300.3900, L100.0500 ####[facility] [address] [place], [address] MCV (RBC) [Entitic vol] 85.2 fL Normal 80-94 [facility] Comment on above: Performed By: #### L 500.4050, L100.4500, L300.3900, L100.0500 ####[facility] [address] [place], [address] Platelet mean volume (Bld) [Entitic vol] 11.7 fL Normal 6.2-12.0 [facility] Comment on above: Performed By: #### L 500.4050, L100.4500, L300.3900, L100.0500 ####[facility] [address] [place], [address] Platelets (Bld) [#/Vol] 90 10*3/uL Low 150-450 [facility] Comment on above: Performed By: #### L 500.4050, L100.4500, L300.3900, L100.0500 ####[facility] [address] [place], [address] RBC (Bld) [#/Vol] 2.57 10*6/uL Low 4.6-6.2 [facility] Comment on above: Performed By: #### L 500.4050, L100.4500, L300.3900, L100.0500 ####[facility] [address] [place], [address] RDW SD 51.1 fl High 35.1-43.9 [facility] Comment on above: Performed By: #### L 500.4050, L100.4500, L300.3900, L100.0500 ####[facility] [address] [place], [address] WBC (Bld) [#/Vol] 8.5 10*3/uL Normal 4.4-11.0 [facility] Comment on above: Performed By: #### L 500.4050, L100.4500, L300.3900, L100.0500 ####[facility] [address] [place], [address] Carbon dioxide, total [Moles /volume] in Central venous bloodOrdered By: Jae Ash on 02-17-2025 CO2 [Moles/Vol] 22.1 mmol/L 21.0-32.0 [facility] Chloride assayOrdered By: Monico Ash on 02-17-2025 Chloride [Moles/Vol] 100 mmol/L 98-108 [facility] Comprehensive Metabolic Prof ilon 02-17-2025 Albumin [Mass/Vol] 2.1 g/dL Low 3.5-5.0 [facility] Comment on above: Performed By: #### L 500.4050, L100.4500, L300.3900, L100.0500 ####[facility] [address] [place], [address] Albumin/Globulin [Mass ratio] 0.7 {ratio} Low 0.9-2.4 [facility] Comment on above: Performed By: #### L 500.4050, L100.4500, L300.3900, L100.0500 ####[facility] [address] [place], [address] ALK PHOS 278 U/L High 40-129 [facility] Comment on above: Performed By: #### L 500.4050, L100.4500, L300.3900, L100.0500 ####[facility] [address] [place], [address] ALT [Catalytic activity/Vol] 46 U/L Normal <=46 [facility] Comment on above: Performed By: #### L 500.4050, L100.4500, L300.3900, L100.0500 ####[facility] [address] [place], [address] AST [Catalytic activity/Vol] 99 U/L High <=37 [facility] Comment on above: Result Comment: Hemo lysis present, Results??could be affected.?? Performed By: #### L 500.4050, L100.4500, L300.3900, L100.0500 ####[facility] [address] [place], [address] Bilirubin [Mass/Vol] 6.79 mg/dL High 0.00-1.30 [facility] Comment on above: Performed By: #### L 500.4050, L100.4500, L300.3900, L100.0500 ####[facility] [address] [place], [address] BUN/CRE 9.7 RATIO Low 10-20 [facility] Comment on above: Performed By: #### L 500.4050, L100.4500, L300.3900, L100.0500 ####[facility] [address] [place], [address] Calcium [Mass/Vol] 7.3 mg/dL Low 7.6-11.0 [facility] Comment on above: Performed By: #### L 500.4050, L100.4500, L300.3900, L100.0500 ####[facility] [address] [place], [address] Chloride [Moles/Vol] 100 mmol/L Normal 98-108 [facility] Comment on above: Performed By: #### L 500.4050, L100.4500, L300.3900, L100.0500 ####[facility] [address] [place], [address] CO2 [Moles/Vol] 22.1 mmol/L Normal 21.0-32.0 [facility] Comment on above: Performed By: #### L 500.4050, L100.4500, L300.3900, L100.0500 ####[facility] [address] [place], [address] Creatinine [Mass/Vol] 1.16 mg/dL Normal 0.70-1.20 [facility] Comment on above: Result Comment: Icte daquan present, Results may be affected. Performed By: #### L 500.4050, L100.4500, L300.3900, L100.0500 ####[facility] [address] [place], [address] ECRCL 79.19 ml/min Normal 50-250 [facility] Comment on above: Performed By: #### L 500.4050, L100.4500, L300.3900, L100.0500 ####[facility] [address] [place], [address] GAP 10 Normal 5-15 [facility] Comment on above: Performed By: #### L 500.4050, L100.4500, L300.3900, L100.0500 ####[facility] [address] [place], [address] GFR/1.73 sq M.predicted among non-blacks MDRD (S/P/Bld) [Vol rate/Area] 73 mL/min/{1.73_m2} Normal >60 [facility] Comment on above: Result Comment: mL/m in/1.73m2 CKD-EPI Creatinine Equation (2020) Performed By: #### L 500.4050, L100.4500, L300.3900, L100.0500 ####[facility] [address] [place], [address] Globulin (S) [Mass/Vol] 3.2 g/dL Normal 2.2-4.2 [facility] Comment on above: Performed By: #### L 500.4050, L100.4500, L300.3900, L100.0500 ####[facility] [address] [place], [address] Glucose [Mass/Vol] 246 mg/dL High 70-99 [facility] Comment on above: Performed By: #### L 500.4050, L100.4500, L300.3900, L100.0500 ####[facility] [address] [place], [address] Potassium [Moles/Vol] 3.6 mmol/L Normal 3.3-5.1 [facility] Comment on above: Result Comment: Hemo lysis present, Results??could be affected.?? Performed By: #### L 500.4050, L100.4500, L300.3900, L100.0500 ####[facility] [address] [place], [address] Sodium [Moles/Vol] 132 mmol/L Low 133-145 [facility] Comment on above: Performed By: #### L 500.4050, L100.4500, L300.3900, L100.0500 ####[facility] [address] [place], [address] T PROT 5.3 g/dL Low 5.9-8.4 [facility] Comment on above: Performed By: #### L 500.4050, L100.4500, L300.3900, L100.0500 ####[facility] [address] [place], [address] Urea nitrogen [Mass/Vol] 11 mg/dL Normal - [facility] Comment on above: Performed By: #### L 500.4050, L100.4500, L300.3900, L100.0500 ####[facility] [address] [place], [address] Differential Commenton 02-17 SMEAR COMMENT SCANNED Normal [facility] Comment on above: Result Comment: MODE RATE THROMBOCYTOPENIA NOTED Performed By: #### L 500.4050, L100.4500, L300.3900, L100.0500 ####[facility] [address] [place], [address] Discharge Instructionon 02-01 Discharge Instruction Normal [facility] Erythrocyte distribution wid th ratioOrdered By: Jae Ash on 02-17-2025 Erythrocyte distribution width (RBC) [Ratio] 19.0 % High 11.6-14.6 [facility] Erythrocyte distribution wid th standard deviationOrdered By: Jae Ash on 02-17-2025 Erythrocyte distribution width (RBC) [Ratio] 51.1 fl High 35.1-43.9 [facility] Glomerular filtration rate ( GFR) estimation/1.73 sq m using serum, plasma, or whole bOrdered By: Jae Ash on 02-17-2025 GFR/1.73 sq M.predicted among non-blacks MDRD (S/P/Bld) [Vol rate/Area] 73 mL/min/{1.73_m2} >60 [facility] deOrdered By: Anurag Irene on 02-17-2025 Glucose [Mass/Vol] 194 mg/dL High 74-106 [facility] Hematocrit Auto (Bld) [Volum e fraction]Ordered By: Jae Ash on 02-17-2025 Hematocrit (Bld) [Volume fraction] 21.9 % Low 40-54 [facility] Hemoglobin measurementOrdere d By: Jae Ash on 02-17-2025 Hemoglobin (Bld) [Mass/Vol] 7.7 g/dL Low 13.0-16.5 [facility] MCV (mean corpuscular volume ) determinationOrdered By: Jae Ash on 02-17-2025 MCV (RBC) [Entitic vol] 85.2 fL 80-94 [facility] MR/CON.PCM.GIon 02-17-2025 MR/CON.PCM.GI Normal [facility] Mean corpuscular hemoglobin (MCH) determinationOrdered By: Jae Ash on 02-17-2025 MCH (RBC) [Entitic mass] 30.0 pg 27.0-32.0 [facility] No Panel InformationOrdered By: Jae Ash on 02-17-2025 99 U/L High <38 [facility] Platelet countOrdered By: Monico Ash on 02-17-2025 Platelets (Bld) [#/Vol] 90 10*3/uL Low 150-450 [facility] Potassium measurement (mass/ volume)Ordered By: Jae Ash on 02-17-2025 Potassium (Unsp spec) [Mass/Vol] 3.6 mmol/L 3.3-5.1 [facility] Prothrombin Time w/INRon INR Coag (PPP) [Relative time] 2.0 {INR} Normal [facility] Comment on above: Performed By: #### L 500.4050, L100.4500, L300.3900, L100.0500 ####[facility] [address] [place], [address] PT Coag (PPP) [Time] 22.8 s High 11.7-14.9 [facility] Comment on above: Performed By: #### L 500.4050, L100.4500, L300.3900, L100.0500 ####[facility] [address] [place], [address] Prothrombin timeOrdered By: Jae Ash on 02-17-2025 PT Coag (PPP) [Time] 22.8 s High 11.7-14.9 [facility] RBC Auto (Bld) [#/Vol]Ordere d By: Jae Ash on 02-17-2025 RBC (Bld) [#/Vol] 2.57 10*6/uL Low 4.6-6.2 [facility] Serum creatinine measurement (mass/volume)Ordered By: Jae Ash on 02-17-2025 Creatinine [Mass/Vol] 1.16 mg/dL 0.70-1.20 [facility] Serum globulin measurementOr dered By: Jae Ash on 02-17-2025 Globulin (S) [Mass/Vol] 3.2 g/dL 2.2-4.2 [facility] Serum glucose measurement (m ass/volume)Ordered By: Jae Ash on 02-17-2025 Glucose [Mass/Vol] 246 mg/dL High 70-99 [facility] Serum or plasma alanine thomas otransferase (ALT) measurementOrdered By: Jae Ash on 02-17-2025 ALT [Catalytic activity/Vol] 46 U/L <47 [facility] Serum or plasma albumin roosevelt urement (mass/volume)Ordered By: Jae Ash on 02-17-2025 Albumin [Mass/Vol] 2.1 g/dL Low 3.5-5.0 [facility] Serum or plasma albumin/glob ulin mass ratioOrdered By: Jae Ash on 02-17-2025 Albumin/Globulin [Mass ratio] 0.7 {ratio} Low 0.9-2.4 [facility] Serum or plasma alkaline kendrick sphatase measurementOrdered By: Jae Ash on 02-17-2025 ALP [Catalytic activity/Vol] 278 U/L High 40-129 [facility] Serum or plasma calcium roosevelt urement (mass/volume)Ordered By: Jae Ash on 02-17-2025 Calcium [Mass/Vol] 7.3 mg/dL Low 7.6-11.0 [facility] Serum or plasma urea nitroge n measurement (mass/volume)Ordered By: Jae Ash on 02-17-2025 Urea nitrogen [Mass/Vol] 11 mg/dL 4-19 [facility] Sodium levelOrdered By: Pasha Ash on 02-17-2025 Sodium [Moles/Vol] 132 mmol/L Low 133-145 [facility] Total proteinOrdered By: Diane Ash on 02-17-2025 Protein [Mass/Vol] 5.3 g/dL Low 5.9-8.4 [facility] White blood cell (WBC) count Ordered By: Jae Ash on 02-17-2025 WBC (Bld) [#/Vol] 8.5 10*3/uL 4.4-11.0 [facility] Absolute lymphocyte countOrd ered By: Jerald Sherwood on 02-16-2025 Lymphocytes Auto (Unsp spec) [#/Vol] 1.28 10*3/uL 0.83-4.51 [facility] Anion gap in Serum or Plasma Ordered By: Jerald Sherwood on 02-16-2025 Anion gap [Moles/Vol] 12 mmol/L 5-15 [facility] Automated lymphocyte count a s percentage of total leukocytesOrdered By: Jerald Sherwood on 02-16-2025 Lymphocytes/100 WBC Auto (Unsp spec) 15.1 % Low 19-41 [facility] BUN/creatinine ratioOrdered By: Jerald Sherwood on 02-16-2025 Urea nitrogen/Creatinine [Mass ratio] 9.4 mg/mg Low 10-20 [facility] Basophil percentageOrdered B y: Jerald [place]wood on 02-16-2025 Basophils/100 WBC (Bld) 0.5 % 0-1 [facility] Bedside Glucoseon 07-16-2025 FINGERSTICK GLU 216 mg/dL High 74-106 [facility] Comment on above: Result Comment: BRISA MOROCHO OF PATIENT CARE PER NURSING PROTOCOL Performed By: #### L 501.080 ####[facility] [address] [place], [address] Bilirubin directOrdered By: Jae Ash on 02-16-2025 Bilirubin.direct [Mass/Vol] 5.10 mg/dL High 0.00-0.30 [facility] Bilirubin, Directon 02-17-20 25 Bilirubin.direct [Mass/Vol] 5.10 mg/dL High 0.00-0.30 [facility] Comment on above: Performed By: #### L 504.2610, L501.4700 ####[facility] [address] [place], [address] Bilirubin, totalOrdered By: Jerald Sherwood on 02-16-2025 Bilirubin [Mass/Vol] 7.29 mg/dL High 0.00-1.30 [facility] CBC W/Diff, Automatedon 02-01 Absolute Lymph 1.28 X10 3/uL Normal 0.83-4.51 [facility] Comment on above: Performed By: #### L 100.0100, L500.4050, L3000.0375, L503.5510 ####[facility] [address] [place], [address] Absolute Neut 5.7 X10 3/uL Normal 2.0-7.7 [facility] Comment on above: Performed By: #### L 100.0100, L500.4050, L3000.0375, L503.5510 ####[facility] [address] [place], [address] Basophils/100 WBC (Bld) 0.5 % Normal 0-1 [facility] Comment on above: Performed By: #### L 100.0100, L500.4050, L3000.0375, L503.5510 ####[facility] [address] [place], [address] Eosinophils/100 WBC (Bld) 5.4 % High 0-5 [facility] Comment on above: Performed By: #### L 100.0100, L500.4050, L3000.0375, L503.5510 ####[facility] [address] [place], [address] Erythrocyte distribution width (RBC) [Ratio] 18.7 % High 11.6-14.6 [facility] Comment on above: Performed By: #### L 100.0100, L500.4050, L3000.0375, L503.5510 ####[facility] [address] [place], [address] Hematocrit (Bld) [Volume fraction] 24.8 % Low 40-54 [facility] Comment on above: Performed By: #### L 100.0100, L500.4050, L3000.0375, L503.5510 ####[facility] [address] [place], [address] Hemoglobin (Bld) [Mass/Vol] 8.2 g/dL Low 13.0-16.5 [facility] Comment on above: Performed By: #### L 100.0100, L500.4050, L3000.0375, L503.5510 ####[facility] [address] [place], [address] IG% 0.200 Normal 0.0-0.9 [facility] Comment on above: Result Comment: IG% - Immature Granulocytes (promyelocytes, myelocytes andmetamyelocytes) > 1% indicates that a LEFT SHIFT is Present. Performed By: #### L 100.0100, L500.4050, L3000.0375, L503.5510 ####[facility] [address] [place], [address] Lymphocytes/100 WBC (Bld) 15.1 % Low 19-41 [facility] Comment on above: Performed By: #### L 100.0100, L500.4050, L3000.0375, L503.5510 ####[facility] [address] [place], [address] MCH (RBC) [Entitic mass] 28.9 pg Normal 27.0-32.0 [facility] Comment on above: Performed By: #### L 100.0100, L500.4050, L3000.0375, L503.5510 ####[facility] [address] [place], [address] MCHC (RBC) [Mass/Vol] 33.1 g/dL Normal 32-36 [facility] Comment on above: Performed By: #### L 100.0100, L500.4050, L3000.0375, L503.5510 ####[facility] [address] [place], [address] MCV (RBC) [Entitic vol] 87.3 fL Normal 80-94 [facility] Comment on above: Performed By: #### L 100.0100, L500.4050, L3000.0375, L503.5510 ####[facility] [address] [place], [address] Monocytes/100 WBC (Bld) 11.7 % High 0-10 [facility] Comment on above: Performed By: #### L 100.0100, L500.4050, L3000.0375, L503.5510 ####[facility] [address] [place], [address] Neutrophils/100 WBC (Bld) 67.1 % Normal 47-70 [facility] Comment on above: Performed By: #### L 100.0100, L500.4050, L3000.0375, L503.5510 ####[facility] [address] [place], [address] Nucleated RBC (Bld) [#/Vol] 0 10*3/uL Normal 0-5 [facility] Comment on above: Performed By: #### L 100.0100, L500.4050, L3000.0375, L503.5510 ####[facility] [address] [place], [address] Platelet mean volume (Bld) [Entitic vol] 12.0 fL Normal 6.2-12.0 [facility] Comment on above: Performed By: #### L 100.0100, L500.4050, L3000.0375, L503.5510 ####[facility] [address] [place], [address] Platelets (Bld) [#/Vol] 106 10*3/uL Low 150-450 [facility] Comment on above: Performed By: #### L 100.0100, L500.4050, L3000.0375, L503.5510 ####[facility] [address] [place], [address] RBC (Bld) [#/Vol] 2.84 10*6/uL Low 4.6-6.2 [facility] Comment on above: Performed By: #### L 100.0100, L500.4050, L3000.0375, L503.5510 ####[facility] [address] [place], [address] RDW SD 53.5 fl High 35.1-43.9 [facility] Comment on above: Performed By: #### L 100.0100, L500.4050, L3000.0375, L503.5510 ####[facility] [address] [place], [address] WBC (Bld) [#/Vol] 8.5 10*3/uL Normal 4.4-11.0 [facility] Comment on above: Performed By: #### L 100.0100, L500.4050, L3000.0375, L503.5510 ####[facility] [address] [place], [address] Carbon dioxide, total [Moles /volume] in Central venous bloodOrdered By: Jerald Sherwood on 02-16-2025 CO2 [Moles/Vol] 24.1 mmol/L 21.0-32.0 [facility] Chloride assayOrdered By: Paulette Sherwood on 02-16-2025 Chloride [Moles/Vol] 99 mmol/L 98-108 [facility] Comprehensive Metabolic Prof ilon 02-16-2025 Albumin [Mass/Vol] 2.3 g/dL Low 3.5-5.0 [facility] Comment on above: Performed By: #### L 100.0100, L500.4050, L3000.0375, L503.5510 ####[facility] [address] [place], [address] Albumin/Globulin [Mass ratio] 0.7 {ratio} Low 0.9-2.4 [facility] Comment on above: Performed By: #### L 100.0100, L500.4050, L3000.0375, L503.5510 ####[facility] [address] [place], [address] ALK PHOS 310 U/L High 40-129 [facility] Comment on above: Performed By: #### L 100.0100, L500.4050, L3000.0375, L503.5510 ####[facility] [address] [place], [address] ALT [Catalytic activity/Vol] 51 U/L High <=46 [facility] Comment on above: Performed By: #### L 100.0100, L500.4050, L3000.0375, L503.5510 ####[facility] [address] [place], [address] AST [Catalytic activity/Vol] 109 U/L High <=37 [facility] Comment on above: Performed By: #### L 100.0100, L500.4050, L3000.0375, L503.5510 ####[facility] [address] [place], [address] Bilirubin [Mass/Vol] 7.29 mg/dL High 0.00-1.30 [facility] Comment on above: Performed By: #### L 100.0100, L500.4050, L3000.0375, L503.5510 ####[facility] [address] [place], [address] BUN/CRE 9.4 RATIO Low 10-20 [facility] Comment on above: Performed By: #### L 100.0100, L500.4050, L3000.0375, L503.5510 ####[facility] [address] [place], [address] Calcium [Mass/Vol] 7.8 mg/dL Normal 7.6-11.0 [facility] Comment on above: Performed By: #### L 100.0100, L500.4050, L3000.0375, L503.5510 ####[facility] [address] [place], [address] Chloride [Moles/Vol] 99 mmol/L Normal 98-108 [facility] Comment on above: Performed By: #### L 100.0100, L500.4050, L3000.0375, L503.5510 ####[facility] [address] [place], [address] CO2 [Moles/Vol] 24.1 mmol/L Normal 21.0-32.0 [facility] Comment on above: Performed By: #### L 100.0100, L500.4050, L3000.0375, L503.5510 ####[facility] [address] [place], [address] Creatinine [Mass/Vol] 1.30 mg/dL High 0.70-1.20 [facility] Comment on above: Result Comment: Icte daquan present, Results may be affected. Performed By: #### L 100.0100, L500.4050, L3000.0375, L503.5510 ####[facility] [address] [place], [address] GAP 12 Normal 5-15 [facility] Comment on above: Performed By: #### L 100.0100, L500.4050, L3000.0375, L503.5510 ####[facility] [address] [place], [address] GFR/1.73 sq M.predicted among non-blacks MDRD (S/P/Bld) [Vol rate/Area] 64 mL/min/{1.73_m2} Normal >60 [facility] Comment on above: Result Comment: mL/m in/1.73m2 CKD-EPI Creatinine Equation (2020) Performed By: #### L 100.0100, L500.4050, L3000.0375, L503.5510 ####[facility] [address] [place], [address] Globulin (S) [Mass/Vol] 3.5 g/dL Normal 2.2-4.2 [facility] Comment on above: Performed By: #### L 100.0100, L500.4050, L3000.0375, L503.5510 ####[facility] [address] [place], [address] Glucose [Mass/Vol] 250 mg/dL High 70-99 [facility] Comment on above: Performed By: #### L 100.0100, L500.4050, L3000.0375, L503.5510 ####[facility] [address] [place], [address] Potassium [Moles/Vol] 3.1 mmol/L Low 3.3-5.1 [facility] Comment on above: Performed By: #### L 100.0100, L500.4050, L3000.0375, L503.5510 ####[facility] [address] [place], [address] Sodium [Moles/Vol] 135 mmol/L Normal 133-145 [facility] Comment on above: Performed By: #### L 100.0100, L500.4050, L3000.0375, L503.5510 ####[facility] [address] [place], [address] T PROT 5.8 g/dL Low 5.9-8.4 [facility] Comment on above: Performed By: #### L 100.0100, L500.4050, L3000.0375, L503.5510 ####[facility] [address] [place], [address] Urea nitrogen [Mass/Vol] 12 mg/dL Normal 4-19 [facility] Comment on above: Performed By: #### L 100.0100, L500.4050, L3000.0375, L503.5510 ####[facility] [address] [place], [address] Emergency Department Summary on 02-16-2025 Emergency Department Summary Normal [facility] Eosinophil percentageOrdered By: Jerald Sherwood on 02-16-2025 Eosinophils/100 WBC (Bld) 5.4 % High 0-5 [facility] Erythrocyte distribution wid th ratioOrdered By: Jerald Sherwood on 02-16-2025 Erythrocyte distribution width (RBC) [Ratio] 18.7 % High 11.6-14.6 [facility] Erythrocyte distribution wid th standard deviationOrdered By: Jerald Sherwood on 02-16-2025 Erythrocyte distribution width (RBC) [Ratio] 53.5 fl High 35.1-43.9 [facility] Glomerular filtration rate ( GFR) estimation/1.73 sq m using serum, plasma, or whole bOrdered By: Jerald Sherwood on 02-16-2025 GFR/1.73 sq M.predicted among non-blacks MDRD (S/P/Bld) [Vol rate/Area] 64 mL/min/{1.73_m2} >60 [facility] H AND P Exam - Hospitaliston 02-16-2025 H&P Exam - Hospitalist Normal [facility] Hematocrit Auto (Bld) [Volum e fraction]Ordered By: Jerald Sherwood on 02-16-2025 Hematocrit (Bld) [Volume fraction] 24.8 % Low 40-54 [facility] Hemoglobin measurementOrdere d By: Jerald Sherwood on 02-16-2025 Hemoglobin (Bld) [Mass/Vol] 8.2 g/dL Low 13.0-16.5 [facility] Immature granulocytes/100 WB C Auto (Bld)Ordered By: Jerald Sherwood on 02-16-2025 Immature granulocytes/100 WBC (Bld) 0.200 % 0.0-0.9 [facility] LDHon 02-16-2025 LDH 273 U/L High 87-241 [facility] Comment on above: Performed By: #### L 504.2610, L501.4700 ####[facility] [address] [place], [place], [id number] MCV (mean corpuscular volume ) determinationOrdered By: Jerald Sherwood on 02-16-2025 MCV (RBC) [Entitic vol] 87.3 fL 80-94 [facility] Magnesiumon 02-16-2025 Magnesium [Mass/Vol] 1.3 mg/dL Low 1.5-2.2 [facility] Comment on above: Performed By: #### L 501.2300, L501.5200 ####[facility] [address] [place], [place], [id number] Magnesium measurement (mass/ volume)Ordered By: Jae Ash on 02-16-2025 Magnesium (Unsp spec) [Mass/Vol] 1.3 mg/dL Low 1.5-2.2 [facility] Mean corpuscular hemoglobin (MCH) determinationOrdered By: Jerald Sherwood on 02-16-2025 MCH (RBC) [Entitic mass] 28.9 pg 27.0-32.0 [facility] Monocyte percentageOrdered B y: Jerald Sherwood on 02-16-2025 Monocytes/100 WBC (Bld) 11.7 % High 0-10 [facility] Neutrophil percentageOrdered By: Jerald Sherwood on 02-16-2025 Neutrophils/100 WBC (Bld) 67.1 % 47-70 [facility] No Panel InformationOrdered By: Jerald Sherwood on 02-16-2025 109 U/L High <38 [facility] Comment . [facility] Phosphoruson 02-16-2025 Phosphate [Mass/Vol] 2.3 mg/dL Low 2.7-4.5 [facility] Comment on above: Performed By: #### L 501.2300, L501.5200 ####[facility] [address] [place], [place], [address] Platelet countOrdered By: Paulette Sherwood on 02-16-2025 Platelets (Bld) [#/Vol] 106 10*3/uL Low 150-450 [facility] Potassium measurement (mass/ volume)Ordered By: Jerald Sherwood on 02-16-2025 Potassium (Unsp spec) [Mass/Vol] 3.1 mmol/L Low 3.3-5.1 [facility] Prothrombin Time w/INRon INR Coag (PPP) [Relative time] 1.8 {INR} Normal [facility] Comment on above: Performed By: #### L 300.3900 ####[facility] [address] [place], [address] PT Coag (PPP) [Time] 21.1 s High 11.7-14.9 [facility] Comment on above: Performed By: #### L 300.3900 ####[facility] [address] [place], [address] RBC Auto (Bld) [#/Vol]Ordere d By: Jerald Sherwood on 02-16-2025 RBC (Bld) [#/Vol] 2.84 10*6/uL Low 4.6-6.2 [facility] Serum creatinine measurement (mass/volume)Ordered By: Jerald Sherwood on 02-16-2025 Creatinine [Mass/Vol] 1.30 mg/dL High 0.70-1.20 [facility] Serum globulin measurementOr dered By: Jerald Sherwood on 02-16-2025 Globulin (S) [Mass/Vol] 3.5 g/dL 2.2-4.2 [facility] Serum glucose measurement (m ass/volume)Ordered By: Jerald Sherwood on 02-16-2025 Glucose [Mass/Vol] 250 mg/dL High 70-99 [facility] Serum or plasma alanine thomas otransferase (ALT) measurementOrdered By: Jerald Sherwood on 02-16-2025 ALT [Catalytic activity/Vol] 51 U/L High <47 [facility] Serum or plasma albumin roosevelt urement (mass/volume)Ordered By: Jerald Sherwood on 02-16-2025 Albumin [Mass/Vol] 2.3 g/dL Low 3.5-5.0 [facility] Serum or plasma albumin/glob ulin mass ratioOrdered By: Jerald Sherwood on 02-16-2025 Albumin/Globulin [Mass ratio] 0.7 {ratio} Low 0.9-2.4 [facility] Serum or plasma alkaline kendrick sphatase measurementOrdered By: Jerald Sherwood on 02-16-2025 ALP [Catalytic activity/Vol] 310 U/L High 40-129 [facility] Serum or plasma calcium roosevelt urement (mass/volume)Ordered By: Jerald Sherwood on 02-16-2025 Calcium [Mass/Vol] 7.8 mg/dL 7.6-11.0 [facility] Serum or plasma hepatitis B virus surface antigen detection by immunoassayOrdered By: Jerald Sherwood on 02-16-2025 HBV surface Ag IA Ql Negative Negative [facility] Serum or plasma urea nitroge n measurement (mass/volume)Ordered By: Jerald Sherwood on 02-16-2025 Urea nitrogen [Mass/Vol] 12 mg/dL 4-19 [facility] Sodium levelOrdered By: Jerald Sherwood on 02-16-2025 Sodium [Moles/Vol] 135 mmol/L 133-145 [facility] Total proteinOrdered By: Candie Sherwood on 02-16-2025 Protein [Mass/Vol] 5.8 g/dL Low 5.9-8.4 [facility] Venous blood ammonia measure mentOrdered By: Jerald Sherwood on 02-16-2025 Ammonia (P) [Moles/Vol] 88.0 umol/L High 16-60 [facility] Comment on above: Performed By: #### L 100.0100, L500.4050, L3000.0375, L503.5510 ####[facility] [address] [place], [address] White blood cell (WBC) count Ordered By: Jerald Sherwood on 02-16-2025 WBC (Bld) [#/Vol] 8.5 10*3/uL 4.4-11.0 [facility] Abdomen/Pelvis W IV Cont ONL Yon 02-13-2025 Abdomen/Pelvis W IV Cont ONLY Normal [facility] Absolute lymphocyte countOrd ered By: Luis Carlos Anderson on 02-13-2025 Lymphocytes Auto (Unsp spec) [#/Vol] 1.20 10*3/uL 0.83-4.51 [facility] Anion gap in Serum or Plasma Ordered By: Luis Carlos Anderson on 02-13-2025 Anion gap [Moles/Vol] 14 mmol/L 5-15 [facility] Automated lymphocyte count a s percentage of total leukocytesOrdered By: Luis Carlos Anderson on 02-13-2025 Lymphocytes/100 WBC Auto (Unsp spec) 13.9 % Low 19-41 [facility] BUN/creatinine ratioOrdered By: Luis Carlos Anderson on 02-13-2025 Urea nitrogen/Creatinine [Mass ratio] 14.3 mg/mg 10-20 [facility] Basophil percentageOrdered B y: Luis Carlos Anderson on 02-13-2025 Basophils/100 WBC (Bld) 0.3 % 0-1 [facility] Bilirubin, totalOrdered By: Luis Carlos Anderson on 02-13-2025 Bilirubin [Mass/Vol] 6.20 mg/dL High 0.00-1.30 [facility] Blood manual differential co mment interpretation (narrative result)Ordered By: Luis Carlos Anderson on 02-13-2025 Manual differential comment Marco Antonio (Bld) [Interp] SCANNED [facility] CBC W/Diff, Automatedon 02-01 PLT EST MOD DEC Normal ADEQ [facility] Comment on above: Performed By: #### L 100.0100, L500.4050, L501.2450 ####[facility] [address] [place], [address] Platelet mean volume (Bld) [Entitic vol] 10.8 fL Normal 6.2-12.0 [facility] Comment on above: Performed By: #### L 100.0100, L500.4050, L501.2450 ####[facility] [address] [place], [address] Platelets (Bld) [#/Vol] 83 10*3/uL Low 150-450 [facility] Comment on above: Result Comment: NO C LUMPING SEEN Performed By: #### L 100.0100, L500.4050, L501.2450 ####[facility] [address] [place], [address] SMEAR COMMENT SCANNED Normal [facility] Comment on above: Performed By: #### L 100.0100, L500.4050, L501.2450 ####[facility] [address] [place], [address] Carbon dioxide, total [Moles /volume] in Central venous bloodOrdered By: Luis Carlos Anderson on 02-13-2025 CO2 [Moles/Vol] 18.4 mmol/L Low 21.0-32.0 [facility] Chloride assayOrdered By: Yaya Anderson on 02-13-2025 Chloride [Moles/Vol] 102 mmol/L 98-108 [facility] Comprehensive Metabolic Prof ilon 02-13-2025 Albumin [Mass/Vol] 2.2 g/dL Low 3.5-5.0 [facility] Comment on above: Performed By: #### L 100.0100, L500.4050, L501.2450 ####[facility] [address] [place], [address] Albumin/Globulin [Mass ratio] 0.6 {ratio} Low 0.9-2.4 [facility] Comment on above: Performed By: #### L 100.0100, L500.4050, L501.2450 ####[facility] [address] [place], [address] ALK PHOS 335 U/L High 40-129 [facility] Comment on above: Performed By: #### L 100.0100, L500.4050, L501.2450 ####[facility] [address] [place], [address] ALT [Catalytic activity/Vol] 53 U/L High <=46 [facility] Comment on above: Performed By: #### L 100.0100, L500.4050, L501.2450 ####[facility] [address] [place], [address] AST [Catalytic activity/Vol] 120 U/L High <=37 [facility] Comment on above: Performed By: #### L 100.0100, L500.4050, L501.2450 ####[facility] [address] [place], [address] Bilirubin [Mass/Vol] 6.20 mg/dL High 0.00-1.30 [facility] Comment on above: Performed By: #### L 100.0100, L500.4050, L501.2450 ####[facility] [address] [place], [address] BUN/CRE 14.3 RATIO Normal 10-20 [facility] Comment on above: Performed By: #### L 100.0100, L500.4050, L501.2450 ####[facility] [address] [place], [address] Calcium [Mass/Vol] 8.3 mg/dL Normal 7.6-11.0 [facility] Comment on above: Performed By: #### L 100.0100, L500.4050, L501.2450 ####[facility] [address] [place], [address] Chloride [Moles/Vol] 102 mmol/L Normal 98-108 [facility] Comment on above: Performed By: #### L 100.0100, L500.4050, L501.2450 ####[facility] [address] [place], [address] CO2 [Moles/Vol] 18.4 mmol/L Low 21.0-32.0 [facility] Comment on above: Performed By: #### L 100.0100, L500.4050, L501.2450 ####[facility] [address] [place], [address] Creatinine [Mass/Vol] 1.78 mg/dL High 0.70-1.20 [facility] Comment on above: Result Comment: Icte daquan present, Results may be affected. Performed By: #### L 100.0100, L500.4050, L501.2450 ####[facility] [address] [place], [address] ECRCL 53.12 ml/min Normal 50-250 [facility] Comment on above: Performed By: #### L 100.0100, L500.4050, L501.2450 ####[facility] [address] [place], [address] GAP 14 Normal 5-15 [facility] Comment on above: Performed By: #### L 100.0100, L500.4050, L501.2450 ####[facility] [address] [place], [address] GFR/1.73 sq M.predicted among non-blacks MDRD (S/P/Bld) [Vol rate/Area] 44 mL/min/{1.73_m2} Low >60 [facility] Comment on above: Result Comment: mL/m in/1.73m2 CKD-EPI Creatinine Equation (2020) Performed By: #### L 100.0100, L500.4050, L501.2450 ####[facility] [address] [place], [address] Globulin (S) [Mass/Vol] 3.7 g/dL Normal 2.2-4.2 [facility] Comment on above: Performed By: #### L 100.0100, L500.4050, L501.2450 ####[facility] [address] [place], [address] Glucose [Mass/Vol] 169 mg/dL High 70-99 [facility] Comment on above: Performed By: #### L 100.0100, L500.4050, L501.2450 ####[facility] [address] [place], [address] Potassium [Moles/Vol] 3.4 mmol/L Normal 3.3-5.1 [facility] Comment on above: Result Comment: Hemo lysis present, Results??could be affected.?? Performed By: #### L 100.0100, L500.4050, L501.2450 ####[facility] [address] [place], [address] Sodium [Moles/Vol] 135 mmol/L Normal 133-145 [facility] Comment on above: Performed By: #### L 100.0100, L500.4050, L501.2450 ####[facility] [address] [place], [address] T PROT 5.8 g/dL Low 5.9-8.4 [facility] Comment on above: Performed By: #### L 100.0100, L500.4050, L501.2450 ####[facility] [address] [place], [address] Urea nitrogen [Mass/Vol] 25 mg/dL High 4-19 [facility] Comment on above: Performed By: #### L 100.0100, L500.4050, L501.2450 ####[facility] [address] [place], [address] Emergency Department Summary on 02-13-2025 Emergency Department Summary Normal [facility] Eosinophil percentageOrdered By: Luis Carlos Anderson on 02-13-2025 Eosinophils/100 WBC (Bld) 5.1 % High 0-5 [facility] Erythrocyte distribution wid th ratioOrdered By: Luis Carlos Anderson on 02-13-2025 Erythrocyte distribution width (RBC) [Ratio] 17.4 % High 11.6-14.6 [facility] Erythrocyte distribution wid th standard deviationOrdered By: Luis Carlos Anderson on 02-13-2025 Erythrocyte distribution width (RBC) [Ratio] 52.3 fl High 35.1-43.9 [facility] Glomerular filtration rate ( GFR) estimation/1.73 sq m using serum, plasma, or whole bOrdered By: Luis Carlos Anderson on 02-13-2025 GFR/1.73 sq M.predicted among non-blacks MDRD (S/P/Bld) [Vol rate/Area] 44 mL/min/{1.73_m2} Low >60 [facility] Hematocrit Auto (Bld) [Volum e fraction]Ordered By: Luis Carlos Anderson on 02-13-2025 Hematocrit (Bld) [Volume fraction] 24.1 % Low 40-54 [facility] Hemoglobin measurementOrdere d By: Luis Carlos Anderson on 02-13-2025 Hemoglobin (Bld) [Mass/Vol] 8.3 g/dL Low 13.0-16.5 [facility] Immature granulocytes/100 WB C Auto (Bld)Ordered By: Luis Carlos Anderson on 02-13-2025 Immature granulocytes/100 WBC (Bld) 0.500 % 0.0-0.9 [facility] Lipaseon 02-13-2025 Lipase [Catalytic activity/Vol] 60 U/L Normal 13-75 [facility] Comment on above: Result Comment: Plea se note:LIPASE revised reference range effective 22.New Lipase methodology. Expected to produce lower valuesthan the previous assay method.NEW Reference Range: 13 - 75 U/L Performed By: #### L 100.0100, L500.4050, L501.2450 ####[facility] [address] [place], [address] MCV (mean corpuscular volume ) determinationOrdered By: Luis Carlos Anderson on 02-13-2025 MCV (RBC) [Entitic vol] 84.9 fL 80-94 [facility] Mean corpuscular hemoglobin (MCH) determinationOrdered By: Luis Carlos Anderson on 02-13-2025 MCH (RBC) [Entitic mass] 29.2 pg 27.0-32.0 [facility] Monocyte percentageOrdered B y: Luis Carlos Anderson on 02-13-2025 Monocytes/100 WBC (Bld) 16.1 % High 0-10 [facility] Neutrophil percentageOrdered By: Luis Carlos Anderson on 02-13-2025 Neutrophils/100 WBC (Bld) 64.1 % 47-70 [facility] No Panel InformationOrdered By: Luis Carlos Anderson on 02-13-2025 120 U/L High <38 [facility] Platelet countOrdered By: felipe Anderson on 02-13-2025 Platelets (Bld) [#/Vol] 83 10*3/uL Low 150-450 [facility] Platelet estimateOrdered By: Luis Carlos Anderson on 02-13-2025 Platelets LM Ql (Bld) MOD DEC ADEQ [facility] Potassium measurement (mass/ volume)Ordered By: Luis Carlos Anderson on 02-13-2025 Potassium (Unsp spec) [Mass/Vol] 3.4 mmol/L 3.3-5.1 [facility] RBC Auto (Bld) [#/Vol]Ordere d By: Luis Carlos Anderson on 02-13-2025 RBC (Bld) [#/Vol] 2.84 10*6/uL Low 4.6-6.2 [facility] Serum creatinine measurement (mass/volume)Ordered By: Luis Carlos Anderson on 02-13-2025 Creatinine [Mass/Vol] 1.78 mg/dL High 0.70-1.20 [facility] Serum globulin measurementOr dered By: Luis Carlos Anderson on 02-13-2025 Globulin (S) [Mass/Vol] 3.7 g/dL 2.2-4.2 [facility] Serum glucose measurement (m ass/volume)Ordered By: Luis Carlos Anderson on 02-13-2025 Glucose [Mass/Vol] 169 mg/dL High 70-99 [facility] Serum or plasma alanine thomas otransferase (ALT) measurementOrdered By: Luis Carlos Anderson on 02-13-2025 ALT [Catalytic activity/Vol] 53 U/L High <47 [facility] Serum or plasma albumin roosevelt urement (mass/volume)Ordered By: Luis Carlos Anderson on 02-13-2025 Albumin [Mass/Vol] 2.2 g/dL Low 3.5-5.0 [facility] Serum or plasma albumin/glob ulin mass ratioOrdered By: Luis Carlos Anderson on 02-13-2025 Albumin/Globulin [Mass ratio] 0.6 {ratio} Low 0.9-2.4 [facility] Serum or plasma alkaline kendrick sphatase measurementOrdered By: Luis Carlos Anderson on 02-13-2025 ALP [Catalytic activity/Vol] 335 U/L High 40-129 [facility] Serum or plasma calcium roosevelt urement (mass/volume)Ordered By: Luis Carlos Anderson on 02-13-2025 Calcium [Mass/Vol] 8.3 mg/dL 7.6-11.0 [facility] Serum or plasma urea nitroge n measurement (mass/volume)Ordered By: Luis Carlos Anderson on 02-13-2025 Urea nitrogen [Mass/Vol] 25 mg/dL High 4-19 [facility] Sodium levelOrdered By: Yunior gatica Justin on 02-13-2025 Sodium [Moles/Vol] 135 mmol/L 133-145 [facility] Total proteinOrdered By: Joann Anderson on 02-13-2025 Protein [Mass/Vol] 5.8 g/dL Low 5.9-8.4 [facility] White blood cell (WBC) count Ordered By: Luis Carlos Anderson on 02-13-2025 WBC (Bld) [#/Vol] 8.6 10*3/uL 4.4-11.0 [facility] Operative Reporton Operative Report Normal [facility] Paracentesis with USon 02-11 Paracentesis with US Normal [facility] Emergency Department Summary on 02-08-2025 Emergency Department Summary Normal [facility] Abdomen/Pelvis W IV Cont ONL Yon 02-07-2025 Abdomen/Pelvis W IV Cont ONLY Normal [facility] Absolute lymphocyte countOrd ered By: ED PROVIDER on 02-07-2025 Lymphocytes Auto (Unsp spec) [#/Vol] 1.39 10*3/uL 0.83-4.51 [facility] Anion gap in Serum or Plasma Ordered By: ED PROVIDER on 02-07-2025 Anion gap [Moles/Vol] 9 mmol/L 5-15 [facility] Automated lymphocyte count a s percentage of total leukocytesOrdered By: ED PROVIDER on 02-07-2025 Lymphocytes/100 WBC Auto (Unsp spec) 12.8 % Low 19-41 [facility] BUN/creatinine ratioOrdered By: ED PROVIDER on 02-07-2025 Urea nitrogen/Creatinine [Mass ratio] 13.9 mg/mg 10-20 [facility] Basophil percentageOrdered B y: ED PROVIDER on 02-07-2025 Basophils/100 WBC (Bld) 0.5 % 0-1 [facility] Bilirubin, totalOrdered By: ED PROVIDER on 02-07-2025 Bilirubin [Mass/Vol] 1.92 mg/dL High 0.00-1.30 [facility] CBC W/Diff, Automatedon Absolute Lymph 1.39 X10 3/uL Normal 0.83-4.51 [facility] Comment on above: Performed By: #### L 501.2450, L500.4050, L100.0100 ####[facility] [address] [place], [address] Absolute Neut 7.9 X10 3/uL High 2.0-7.7 [facility] Comment on above: Performed By: #### L 501.2450, L500.4050, L100.0100 ####[facility] [address] [place], [address] Basophils/100 WBC (Bld) 0.5 % Normal 0-1 [facility] Comment on above: Performed By: #### L 501.2450, L500.4050, L100.0100 ####[facility] [address] [place], [address] Eosinophils/100 WBC (Bld) 5.4 % High 0-5 [facility] Comment on above: Performed By: #### L 501.2450, L500.4050, L100.0100 ####[facility] [address] [place], [address] Erythrocyte distribution width (RBC) [Ratio] 17.9 % High 11.6-14.6 [facility] Comment on above: Performed By: #### L 501.2450, L500.4050, L100.0100 ####[facility] [address] [place], [address] Hematocrit (Bld) [Volume fraction] 28.8 % Low 40-54 [facility] Comment on above: Performed By: #### L 501.2450, L500.4050, L100.0100 ####[facility] [address] [place], [address] Hemoglobin (Bld) [Mass/Vol] 9.2 g/dL Low 13.0-16.5 [facility] Comment on above: Performed By: #### L 501.2450, L500.4050, L100.0100 ####[facility] [address] [place], [address] IG% 0.400 Normal 0.0-0.9 [facility] Comment on above: Result Comment: IG% - Immature Granulocytes (promyelocytes, myelocytes andmetamyelocytes) > 1% indicates that a LEFT SHIFT is Present. Performed By: #### L 501.2450, L500.4050, L100.0100 ####[facility] [address] [place], [address] Lymphocytes/100 WBC (Bld) 12.8 % Low 19-41 [facility] Comment on above: Performed By: #### L 501.2450, L500.4050, L100.0100 ####[facility] [address] [place], [address] MCH (RBC) [Entitic mass] 29.0 pg Normal 27.0-32.0 [facility] Comment on above: Performed By: #### L 501.2450, L500.4050, L100.0100 ####[facility] [address] [place], [address] MCHC (RBC) [Mass/Vol] 31.9 g/dL Low 32-36 [facility] Comment on above: Performed By: #### L 501.2450, L500.4050, L100.0100 ####[facility] [address] [place], [address] MCV (RBC) [Entitic vol] 90.9 fL Normal 80-94 [facility] Comment on above: Performed By: #### L 501.2450, L500.4050, L100.0100 ####[facility] [address] [place], [address] Monocytes/100 WBC (Bld) 8.1 % Normal 0-10 [facility] Comment on above: Performed By: #### L 501.2450, L500.4050, L100.0100 ####[facility] [address] [place], [address] Neutrophils/100 WBC (Bld) 72.8 % High 47-70 [facility] Comment on above: Performed By: #### L 501.2450, L500.4050, L100.0100 ####[facility] [address] [place], [address] Nucleated RBC (Bld) [#/Vol] 0 10*3/uL Normal 0-5 [facility] Comment on above: Performed By: #### L 501.2450, L500.4050, L100.0100 ####[facility] [address] [place], [address] Platelet mean volume (Bld) [Entitic vol] 10.1 fL Normal 6.2-12.0 [facility] Comment on above: Performed By: #### L 501.2450, L500.4050, L100.0100 ####[facility] [address] [place], [address] Platelets (Bld) [#/Vol] 131 10*3/uL Low 150-450 [facility] Comment on above: Performed By: #### L 501.2450, L500.4050, L100.0100 ####[facility] [address] [place], [address] RBC (Bld) [#/Vol] 3.17 10*6/uL Low 4.6-6.2 [facility] Comment on above: Performed By: #### L 501.2450, L500.4050, L100.0100 ####[facility] [address] [place], [address] RDW SD 58.3 fl High 35.1-43.9 [facility] Comment on above: Performed By: #### L 501.2450, L500.4050, L100.0100 ####[facility] [address] [place], [address] WBC (Bld) [#/Vol] 10.8 10*3/uL Normal 4.4-11.0 [facility] Comment on above: Performed By: #### L 501.2450, L500.4050, L100.0100 ####[facility] [address] [place], [address] Carbon dioxide, total [Moles /volume] in Central venous bloodOrdered By: ED PROVIDER on 02-07-2025 CO2 [Moles/Vol] 22.7 mmol/L 21.0-32.0 [facility] Chloride assayOrdered By: ED PROVIDER on 02-07-2025 Chloride [Moles/Vol] 106 mmol/L 98-108 [facility] Comprehensive Metabolic Prof ilon 02-07-2025 Albumin [Mass/Vol] 2.2 g/dL Low 3.5-5.0 [facility] Comment on above: Performed By: #### L 501.2450, L500.4050, L100.0100 ####[facility] [address] [place], [address] Albumin/Globulin [Mass ratio] 0.6 {ratio} Low 0.9-2.4 [facility] Comment on above: Performed By: #### L 501.2450, L500.4050, L100.0100 ####[facility] [address] [place], [address] ALK PHOS 218 U/L High 40-129 [facility] Comment on above: Performed By: #### L 501.2450, L500.4050, L100.0100 ####[facility] [address] [place], [address] ALT [Catalytic activity/Vol] 30 U/L Normal <=46 [facility] Comment on above: Performed By: #### L 501.2450, L500.4050, L100.0100 ####[facility] [address] [place], [address] AST [Catalytic activity/Vol] 55 U/L High <=37 [facility] Comment on above: Performed By: #### L 501.2450, L500.4050, L100.0100 ####[facility] [address] [place], [address] Bilirubin [Mass/Vol] 1.92 mg/dL High 0.00-1.30 [facility] Comment on above: Performed By: #### L 501.2450, L500.4050, L100.0100 ####[facility] [address] [place], [address] BUN/CRE 13.9 RATIO Normal 10-20 [facility] Comment on above: Performed By: #### L 501.2450, L500.4050, L100.0100 ####[facility] [address] [place], [address] Calcium [Mass/Vol] 8.4 mg/dL Normal 7.6-11.0 [facility] Comment on above: Performed By: #### L 501.2450, L500.4050, L100.0100 ####[facility] [address] [place], [address] Chloride [Moles/Vol] 106 mmol/L Normal 98-108 [facility] Comment on above: Performed By: #### L 501.2450, L500.4050, L100.0100 ####[facility] [address] [place], [address] CO2 [Moles/Vol] 22.7 mmol/L Normal 21.0-32.0 [facility] Comment on above: Performed By: #### L 501.2450, L500.4050, L100.0100 ####[facility] [address] [place], [address] Creatinine [Mass/Vol] 1.05 mg/dL Normal 0.70-1.20 [facility] Comment on above: Performed By: #### L 501.2450, L500.4050, L100.0100 ####[facility] [address] [place], [address] GAP 9 Normal 5-15 [facility] Comment on above: Performed By: #### L 501.2450, L500.4050, L100.0100 ####[facility] [address] [place], [address] GFR/1.73 sq M.predicted among non-blacks MDRD (S/P/Bld) [Vol rate/Area] 82 mL/min/{1.73_m2} Normal >60 [facility] Comment on above: Result Comment: mL/m in/1.73m2 CKD-EPI Creatinine Equation (2020) Performed By: #### L 501.2450, L500.4050, L100.0100 ####[facility] [address] [place], [address] Globulin (S) [Mass/Vol] 3.5 g/dL Normal 2.2-4.2 [facility] Comment on above: Performed By: #### L 501.2450, L500.4050, L100.0100 ####[facility] [address] [place], [address] Glucose [Mass/Vol] 142 mg/dL High 70-99 [facility] Comment on above: Performed By: #### L 501.2450, L500.4050, L100.0100 ####[facility] [address] [place], [address] Potassium [Moles/Vol] 3.7 mmol/L Normal 3.3-5.1 [facility] Comment on above: Performed By: #### L 501.2450, L500.4050, L100.0100 ####[facility] [address] [place], [address] Sodium [Moles/Vol] 137 mmol/L Normal 133-145 [facility] Comment on above: Performed By: #### L 501.2450, L500.4050, L100.0100 ####[facility] [address] [place], [address] T PROT 5.8 g/dL Low 5.9-8.4 [facility] Comment on above: Performed By: #### L 501.2450, L500.4050, L100.0100 ####[facility] [address] [place], [address] Urea nitrogen [Mass/Vol] 15 mg/dL Normal 4-19 [facility] Comment on above: Performed By: #### L 501.2450, L500.4050, L100.0100 ####[facility] [address] [place], [address] Eosinophil percentageOrdered By: ED PROVIDER on 02-07-2025 Eosinophils/100 WBC (Bld) 5.4 % High 0-5 [facility] Erythrocyte distribution wid th ratioOrdered By: ED PROVIDER on 02-07-2025 Erythrocyte distribution width (RBC) [Ratio] 17.9 % High 11.6-14.6 [facility] Erythrocyte distribution wid th standard deviationOrdered By: ED PROVIDER on 02-07-2025 Erythrocyte distribution width (RBC) [Ratio] 58.3 fl High 35.1-43.9 [facility] Glomerular filtration rate ( GFR) estimation/1.73 sq m using serum, plasma, or whole bOrdered By: ED PROVIDER on 02-07-2025 GFR/1.73 sq M.predicted among non-blacks MDRD (S/P/Bld) [Vol rate/Area] 82 mL/min/{1.73_m2} >60 [facility] Hematocrit Auto (Bld) [Volum e fraction]Ordered By: ED PROVIDER on 02-07-2025 Hematocrit (Bld) [Volume fraction] 28.8 % Low 40-54 [facility] Hemoglobin measurementOrdere d By: ED PROVIDER on 02-07-2025 Hemoglobin (Bld) [Mass/Vol] 9.2 g/dL Low 13.0-16.5 [facility] Immature granulocytes/100 WB C Auto (Bld)Ordered By: ED PROVIDER on 02-07-2025 Immature granulocytes/100 WBC (Bld) 0.400 % 0.0-0.9 [facility] Lipaseon 02-07-2025 Lipase [Catalytic activity/Vol] 35 U/L Normal 13-75 [facility] Comment on above: Result Comment: Siddhartha bhat note:LIPASE revised reference range effective 22.New Lipase methodology. Expected to produce lower valuesthan the previous assay method.NEW Reference Range: 13 - 75 U/L Performed By: #### L 501.2450, L500.4050, L100.0100 ####[facility] [address] [place], [address] MCV (mean corpuscular volume ) determinationOrdered By: ED PROVIDER on 02-07-2025 MCV (RBC) [Entitic vol] 90.9 fL 80-94 [facility] Mean corpuscular hemoglobin (MCH) determinationOrdered By: ED PROVIDER on 02-07-2025 MCH (RBC) [Entitic mass] 29.0 pg 27.0-32.0 [facility] Monocyte percentageOrdered B y: ED PROVIDER on 02-07-2025 Monocytes/100 WBC (Bld) 8.1 % 0-10 [facility] Neutrophil percentageOrdered By: ED PROVIDER on 02-07-2025 Neutrophils/100 WBC (Bld) 72.8 % High 47-70 [facility] No Panel InformationOrdered By: ED PROVIDER on 02-07-2025 55 U/L High <38 [facility] Platelet countOrdered By: ED PROVIDER on 02-07-2025 Platelets (Bld) [#/Vol] 131 10*3/uL Low 150-450 [facility] Potassium measurement (mass/ volume)Ordered By: ED PROVIDER on 02-07-2025 Potassium (Unsp spec) [Mass/Vol] 3.7 mmol/L 3.3-5.1 [facility] RBC Auto (Bld) [#/Vol]Ordere d By: ED PROVIDER on 02-07-2025 RBC (Bld) [#/Vol] 3.17 10*6/uL Low 4.6-6.2 [facility] Serum creatinine measurement (mass/volume)Ordered By: ED PROVIDER on 02-07-2025 Creatinine [Mass/Vol] 1.05 mg/dL 0.70-1.20 [facility] Serum globulin measurementOr dered By: ED PROVIDER on 02-07-2025 Globulin (S) [Mass/Vol] 3.5 g/dL 2.2-4.2 [facility] Serum glucose measurement (m ass/volume)Ordered By: ED PROVIDER on 02-07-2025 Glucose [Mass/Vol] 142 mg/dL High 70-99 [facility] Serum or plasma alanine thomas otransferase (ALT) measurementOrdered By: ED PROVIDER on 02-07-2025 ALT [Catalytic activity/Vol] 30 U/L <47 [facility] Serum or plasma albumin roosevelt urement (mass/volume)Ordered By: ED PROVIDER on 02-07-2025 Albumin [Mass/Vol] 2.2 g/dL Low 3.5-5.0 [facility] Serum or plasma albumin/glob ulin mass ratioOrdered By: ED PROVIDER on 02-07-2025 Albumin/Globulin [Mass ratio] 0.6 {ratio} Low 0.9-2.4 [facility] Serum or plasma alkaline kendrick sphatase measurementOrdered By: ED PROVIDER on 02-07-2025 ALP [Catalytic activity/Vol] 218 U/L High 40-129 [facility] Serum or plasma calcium roosevelt urement (mass/volume)Ordered By: ED PROVIDER on 02-07-2025 Calcium [Mass/Vol] 8.4 mg/dL 7.6-11.0 [facility] Serum or plasma urea nitroge n measurement (mass/volume)Ordered By: ED PROVIDER on 02-07-2025 Urea nitrogen [Mass/Vol] 15 mg/dL 4-19 [facility] Sodium levelOrdered By: ED P ROKRYSTEN on 02-07-2025 Sodium [Moles/Vol] 137 mmol/L 133-145 [facility] Total proteinOrdered By: ED PROVIDER on 02-07-2025 Protein [Mass/Vol] 5.8 g/dL Low 5.9-8.4 [facility] White blood cell (WBC) count Ordered By: ED PROVIDER on 02-07-2025 WBC (Bld) [#/Vol] 10.8 10*3/uL 4.4-11.0 [facility] Culture, Blood (WB)on 2024 CUB Blood cultures x2, f rom two different sites No growth in 5 days. Normal [facility] Comment on above: Performed By: #### M 200.1000 ####[facility] [address] [place], [address] Anion gap in Serum or Plasma Ordered By: Yaritza Leo on 01-31-2025 Anion gap [Moles/Vol] 9 mmol/L 5-15 [facility] BUN/creatinine ratioOrdered By: Yaritza Leo on 01-31-2025 Urea nitrogen/Creatinine [Mass ratio] 10.7 mg/mg 10- [facility] Basic Metabolic Profile (BMP )on 01-31-2025 BUN/CRE 10.7 RATIO Normal - [facility] Comment on above: Performed By: #### L 500.2500, L100.0500 ####[facility] [address] [place], [address] Calcium [Mass/Vol] 8.5 mg/dL Normal 7.6-11.0 [facility] Comment on above: Performed By: #### L 500.2500, L100.0500 ####[facility] [address] [place], [address] Chloride [Moles/Vol] 102 mmol/L Normal 98-108 [facility] Comment on above: Performed By: #### L 500.2500, L100.0500 ####[facility] [address] [place], [address] CO2 [Moles/Vol] 22.6 mmol/L Normal 21.0-32.0 [facility] Comment on above: Performed By: #### L 500.2500, L100.0500 ####[facility] [address] [place], [address] Creatinine [Mass/Vol] 0.95 mg/dL Normal 0.70-1.20 [facility] Comment on above: Performed By: #### L 500.2500, L100.0500 ####[facility] [address] [place], [address] ECRCL 108.71 ml/min Normal 50-250 [facility] Comment on above: Performed By: #### L 500.2500, L100.0500 ####[facility] [address] [place], [address] GAP 9 Normal 5-15 [facility] Comment on above: Performed By: #### L 500.2500, L100.0500 ####[facility] [address] [place], [address] GFR/1.73 sq M.predicted among non-blacks MDRD (S/P/Bld) [Vol rate/Area] 93 mL/min/{1.73_m2} Normal >60 [facility] Comment on above: Result Comment: mL/m in/1.73m2 CKD-EPI Creatinine Equation (2020) Performed By: #### L 500.2500, L100.0500 ####[facility] [address] [place], [address] Glucose [Mass/Vol] 143 mg/dL High 70-99 [facility] Comment on above: Performed By: #### L 500.2500, L100.0500 ####[facility] [address] [place], [address] Potassium [Moles/Vol] 3.9 mmol/L Normal 3.3-5.1 [facility] Comment on above: Performed By: #### L 500.2500, L100.0500 ####[facility] [address] [place], [address] Sodium [Moles/Vol] 133 mmol/L Normal 133-145 [facility] Comment on above: Performed By: #### L 500.2500, L100.0500 ####[facility] [address] [place], [address] Urea nitrogen [Mass/Vol] 10 mg/dL Normal 4-19 [facility] Comment on above: Performed By: #### L 500.2500, L100.0500 ####[facility] [address] [place], [address] Bedside Glucoseon 01-31-2025 FINGERSTICK GLU 129 mg/dL High 74-106 [facility] Comment on above: Result Comment: BRISA GEMENT OF PATIENT CARE PER NURSING PROTOCOL Performed By: #### L 501.080 ####[facility] [address] [place], [address] FINGERSTICK GLU 179 mg/dL High 74-106 [facility] Comment on above: Result Comment: BRISA GEMENT OF PATIENT CARE PER NURSING PROTOCOL Performed By: #### L 501.080 ####[facility] [address] [place], [address] FINGERSTICK GLU 149 mg/dL High 74-106 [facility] Comment on above: Result Comment: BRISA GEMENT OF PATIENT CARE PER NURSING PROTOCOL Performed By: #### L 501.080 ####[facility] [address] [place], [address] CBC-Complete Blood Cnt No Di ffon 01-31-2025 Erythrocyte distribution width (RBC) [Ratio] 17.7 % High 11.6-14.6 [facility] Comment on above: Performed By: #### L 500.2500, L100.0500 ####[facility] [address] [place], [address] Hematocrit (Bld) [Volume fraction] 23.8 % Low 40-54 [facility] Comment on above: Performed By: #### L 500.2500, L100.0500 ####[facility] [address] [place], [address] Hemoglobin (Bld) [Mass/Vol] 7.9 g/dL Low 13.0-16.5 [facility] Comment on above: Performed By: #### L 500.2500, L100.0500 ####[facility] [address] [place], [address] MCH (RBC) [Entitic mass] 29.8 pg Normal 27.0-32.0 [facility] Comment on above: Performed By: #### L 500.2500, L100.0500 ####[facility] [address] [place], [address] MCHC (RBC) [Mass/Vol] 33.2 g/dL Normal 32-36 [facility] Comment on above: Performed By: #### L 500.2500, L100.0500 ####[facility] [address] [place], [address] MCV (RBC) [Entitic vol] 89.8 fL Normal 80-94 [facility] Comment on above: Performed By: #### L 500.2500, L100.0500 ####[facility] [address] [place], [address] Platelet mean volume (Bld) [Entitic vol] 10.6 fL Normal 6.2-12.0 [facility] Comment on above: Performed By: #### L 500.2500, L100.0500 ####[facility] [address] [place], [address] Platelets (Bld) [#/Vol] 108 10*3/uL Low 150-450 [facility] Comment on above: Performed By: #### L 500.2500, L100.0500 ####[facility] [address] [place], [address] RBC (Bld) [#/Vol] 2.65 10*6/uL Low 4.6-6.2 [facility] Comment on above: Performed By: #### L 500.2500, L100.0500 ####[facility] [address] [place], [address] RDW SD 56.9 fl High 35.1-43.9 [facility] Comment on above: Performed By: #### L 500.2500, L100.0500 ####[facility] [address] [place], [address] WBC (Bld) [#/Vol] 5.9 10*3/uL Normal 4.4-11.0 [facility] Comment on above: Performed By: #### L 500.2500, L100.0500 ####[facility] [address] [place], [address] Carbon dioxide, total [Moles /volume] in Central venous bloodOrdered By: Yaritza Leo on 01-31-2025 CO2 [Moles/Vol] 22.6 mmol/L 21.0-32.0 [facility] Chloride assayOrdered By: Raad Leo on 01-31-2025 Chloride [Moles/Vol] 102 mmol/L 98-108 [facility] Erythrocyte distribution wid th ratioOrdered By: Yaritza Leo on 01-31-2025 Erythrocyte distribution width (RBC) [Ratio] 17.7 % High 11.6-14.6 [facility] Erythrocyte distribution wid th standard deviationOrdered By: Yaritza Leo on 01-31-2025 Erythrocyte distribution width (RBC) [Ratio] 56.9 fl High 35.1-43.9 [facility] Glomerular filtration rate ( GFR) estimation/1.73 sq m using serum, plasma, or whole bOrdered By: Yaritza Leo on 01-31-2025 GFR/1.73 sq M.predicted among non-blacks MDRD (S/P/Bld) [Vol rate/Area] 93 mL/min/{1.73_m2} >60 [facility] deOrdered By: Yaritza Leo on 01-31-2025 Glucose [Mass/Vol] 129 mg/dL High 74-106 [facility] Hematocrit Auto (Bld) [Volum e fraction]Ordered By: Yaritza Leo on 01-31-2025 Hematocrit (Bld) [Volume fraction] 23.8 % Low 40-54 [facility] Hemoglobin measurementOrdere d By: Yaritza Leo on 01-31-2025 Hemoglobin (Bld) [Mass/Vol] 7.9 g/dL Low 13.0-16.5 [facility] MCV (mean corpuscular volume ) determinationOrdered By: Yraitza Leo on 01-31-2025 MCV (RBC) [Entitic vol] 89.8 fL 80-94 [facility] Mean corpuscular hemoglobin (MCH) determinationOrdered By: Yaritza Leo on 01-31-2025 MCH (RBC) [Entitic mass] 29.8 pg 27.0-32.0 [facility] Platelet countOrdered By: Raad Leo on 01-31-2025 Platelets (Bld) [#/Vol] 108 10*3/uL Low 150-450 [facility] Potassium measurement (mass/ volume)Ordered By: Yaritza Leo on 01-31-2025 Potassium (Unsp spec) [Mass/Vol] 3.9 mmol/L 3.3-5.1 [facility] RBC Auto (Bld) [#/Vol]Ordere d By: Yaritza Leo on 01-31-2025 RBC (Bld) [#/Vol] 2.65 10*6/uL Low 4.6-6.2 [facility] Serum creatinine measurement (mass/volume)Ordered By: Yaritza Leo on 01-31-2025 Creatinine [Mass/Vol] 0.95 mg/dL 0.70-1.20 [facility] Serum glucose measurement (m ass/volume)Ordered By: Yaritza Leo on 01-31-2025 Glucose [Mass/Vol] 143 mg/dL High 70-99 [facility] Serum or plasma calcium roosevelt urement (mass/volume)Ordered By: Yaritza Leo on 01-31-2025 Calcium [Mass/Vol] 8.5 mg/dL 7.6-11.0 [facility] Serum or plasma urea nitroge n measurement (mass/volume)Ordered By: Yaritza Leo on 01-31-2025 Urea nitrogen [Mass/Vol] 10 mg/dL 4-19 [facility] Sodium levelOrdered By: Saritha Leo on 01-31-2025 Sodium [Moles/Vol] 133 mmol/L 133-145 [facility] White blood cell (WBC) count Ordered By: Yaritza Leo on 01-31-2025 WBC (Bld) [#/Vol] 5.9 10*3/uL 4.4-11.0 [facility] Absolute lymphocyte countOrd ered By: Yaritza Leo on 01-30-2025 Lymphocytes Auto (Unsp spec) [#/Vol] 1.08 10*3/uL 0.83-4.51 [facility] Automated lymphocyte count a s percentage of total leukocytesOrdered By: Yaritza Leo on 01-30-2025 Lymphocytes/100 WBC Auto (Unsp spec) 20.0 % 19-41 [facility] Basic Metabolic Profile (BMP )on 01-30-2025 BUN/CRE 10.1 RATIO Normal 10-20 [facility] Comment on above: Performed By: #### L 501.5200, L500.2500, L501.2300, L100.0100 ####[facility] [address] [place], [place], [id number] Calcium [Mass/Vol] 8.4 mg/dL Normal 7.6-11.0 [facility] Comment on above: Performed By: #### L 501.5200, L500.2500, L501.2300, L100.0100 ####[facility] [address] [place], [address] Chloride [Moles/Vol] 101 mmol/L Normal 98-108 [facility] Comment on above: Performed By: #### L 501.5200, L500.2500, L501.2300, L100.0100 ####[facility] [address] [place], [address] CO2 [Moles/Vol] 17.3 mmol/L Low 21.0-32.0 [facility] Comment on above: Performed By: #### L 501.5200, L500.2500, L501.2300, L100.0100 ####[facility] [address] [place], [address] Creatinine [Mass/Vol] 0.93 mg/dL Normal 0.70-1.20 [facility] Comment on above: Performed By: #### L 501.5200, L500.2500, L501.2300, L100.0100 ####[facility] [address] [place], [address] ECRCL 111.05 ml/min Normal 50-250 [facility] Comment on above: Performed By: #### L 501.5200, L500.2500, L501.2300, L100.0100 ####[facility] [address] [place], [address] GAP 13 Normal 5-15 [facility] Comment on above: Performed By: #### L 501.5200, L500.2500, L501.2300, L100.0100 ####[facility] [address] [place], [address] GFR/1.73 sq M.predicted among non-blacks MDRD (S/P/Bld) [Vol rate/Area] 95 mL/min/{1.73_m2} Normal >60 [facility] Comment on above: Result Comment: mL/m in/1.73m2 CKD-EPI Creatinine Equation (2020) Performed By: #### L 501.5200, L500.2500, L501.2300, L100.0100 ####[facility] [address] [place], [address] Glucose [Mass/Vol] 139 mg/dL High 70-99 [facility] Comment on above: Performed By: #### L 501.5200, L500.2500, L501.2300, L100.0100 ####[facility] [address] [place], [address] Potassium [Moles/Vol] 3.5 mmol/L Normal 3.3-5.1 [facility] Comment on above: Result Comment: Hemo lysis present, Results??could be affected.?? Performed By: #### L 501.5200, L500.2500, L501.2300, L100.0100 ####[facility] [address] [place], [address] Sodium [Moles/Vol] 131 mmol/L Low 133-145 [facility] Comment on above: Performed By: #### L 501.5200, L500.2500, L501.2300, L100.0100 ####[facility] [address] [place], [address] Urea nitrogen [Mass/Vol] 9 mg/dL Normal 4-19 [facility] Comment on above: Performed By: #### L 501.5200, L500.2500, L501.2300, L100.0100 ####[facility] [address] [place], [address] Basophil percentageOrdered B y: Yaritza Leo on 01-30-2025 Basophils/100 WBC (Bld) 0.7 % Normal 0-1 [facility] Comment on above: Performed By: #### L 501.5200, L500.2500, L501.2300, L100.0100 ####[facility] [address] [place], [address] Bedside Glucoseon 01-30-2025 FINGERSTICK GLU 170 mg/dL High 74-106 [facility] Comment on above: Result Comment: BRISA GEMENT OF PATIENT CARE PER NURSING PROTOCOL Performed By: #### L 501.080 ####[facility] [address] [place], [address] FINGERSTICK GLU 122 mg/dL High 74-106 [facility] Comment on above: Result Comment: BRISA GEMENT OF PATIENT CARE PER NURSING PROTOCOL Performed By: #### L 501.080 ####[facility] [address] [place], [address] FINGERSTICK GLU 119 mg/dL High 74-106 [facility] Comment on above: Result Comment: BRISA GEMENT OF PATIENT CARE PER NURSING PROTOCOL Performed By: #### L 501.080 ####[facility] [address] [place], [address] FINGERSTICK GLU 116 mg/dL High 74-106 [facility] Comment on above: Result Comment: BRISA GEMENT OF PATIENT CARE PER NURSING PROTOCOL Performed By: #### L 501.080 ####[facility] [address] [place], [address] CBC W/Diff, Automatedon - Absolute Lymph 1.08 X10 3/uL Normal 0.83-4.51 [facility] Comment on above: Performed By: #### L 501.5200, L500.2500, L501.2300, L100.0100 ####[facility] [address] [place], [address] Absolute Neut 2.9 X10 3/uL Normal 2.0-7.7 [facility] Comment on above: Performed By: #### L 501.5200, L500.2500, L501.2300, L100.0100 ####[facility] [address] [place], [address] Erythrocyte distribution width (RBC) [Ratio] 18.1 % High 11.6-14.6 [facility] Comment on above: Performed By: #### L 501.5200, L500.2500, L501.2300, L100.0100 ####[facility] [address] [place], [address] Hematocrit (Bld) [Volume fraction] 24.1 % Low 40-54 [facility] Comment on above: Performed By: #### L 501.5200, L500.2500, L501.2300, L100.0100 ####[facility] [address] [place], [address] Hemoglobin (Bld) [Mass/Vol] 7.7 g/dL Low 13.0-16.5 [facility] Comment on above: Performed By: #### L 501.5200, L500.2500, L501.2300, L100.0100 ####[facility] [address] [place], [address] IG% 0.600 Normal 0.0-0.9 [facility] Comment on above: Result Comment: IG% - Immature Granulocytes (promyelocytes, myelocytes andmetamyelocytes) > 1% indicates that a LEFT SHIFT is Present. Performed By: #### L 501.5200, L500.2500, L501.2300, L100.0100 ####[facility] [address] [place], [address] Lymphocytes/100 WBC (Bld) 20.0 % Normal 19-41 [facility] Comment on above: Performed By: #### L 501.5200, L500.2500, L501.2300, L100.0100 ####[facility] [address] [place], [address] MCH (RBC) [Entitic mass] 29.2 pg Normal 27.0-32.0 [facility] Comment on above: Performed By: #### L 501.5200, L500.2500, L501.2300, L100.0100 ####[facility] [address] [place], [address] MCHC (RBC) [Mass/Vol] 32.0 g/dL Normal 32-36 [facility] Comment on above: Performed By: #### L 501.5200, L500.2500, L501.2300, L100.0100 ####[facility] [address] [place], [address] MCV (RBC) [Entitic vol] 91.3 fL Normal 80-94 [facility] Comment on above: Performed By: #### L 501.5200, L500.2500, L501.2300, L100.0100 ####[facility] [address] [place], [address] Nucleated RBC (Bld) [#/Vol] 0 10*3/uL Normal 0-5 [facility] Comment on above: Performed By: #### L 501.5200, L500.2500, L501.2300, L100.0100 ####[facility] [address] [place], [address] Platelet mean volume (Bld) [Entitic vol] 10.5 fL Normal 6.2-12.0 [facility] Comment on above: Performed By: #### L 501.5200, L500.2500, L501.2300, L100.0100 ####[facility] [address] [place], [address] Platelets (Bld) [#/Vol] 108 10*3/uL Low 150-450 [facility] Comment on above: Performed By: #### L 501.5200, L500.2500, L501.2300, L100.0100 ####[facility] [address] [place], [address] RBC (Bld) [#/Vol] 2.64 10*6/uL Low 4.6-6.2 [facility] Comment on above: Performed By: #### L 501.5200, L500.2500, L501.2300, L100.0100 ####[facility] [address] [place], [address] RDW SD 61.1 fl High 35.1-43.9 [facility] Comment on above: Performed By: #### L 501.5200, L500.2500, L501.2300, L100.0100 ####[facility] [address] [place], [address] WBC (Bld) [#/Vol] 5.4 10*3/uL Normal 4.4-11.0 [facility] Comment on above: Performed By: #### L 501.5200, L500.2500, L501.2300, L100.0100 ####[facility] [address] [place], [address] Eosinophil percentageOrdered By: Yaritza Leo on 01-30-2025 Eosinophils/100 WBC (Bld) 7.0 % High 0-5 [facility] Comment on above: Performed By: #### L 501.5200, L500.2500, L501.2300, L100.0100 ####[facility] [address] [place], [address] Immature granulocytes/100 WB C Auto (Bld)Ordered By: Yaritza Leo on 01-30-2025 Immature granulocytes/100 WBC (Bld) 0.600 % 0.0-0.9 [facility] Magnesiumon 01-30-2025 Magnesium [Mass/Vol] 1.7 mg/dL Normal 1.5-2.2 [facility] Comment on above: Performed By: #### L 501.5200, L500.2500, L501.2300, L100.0100 ####[facility] [address] [place], [address] Magnesium measurement (mass/ volume)Ordered By: Yaritza Leo on 01-30-2025 Magnesium (Unsp spec) [Mass/Vol] 1.7 mg/dL 1.5-2.2 [facility] Monocyte percentageOrdered B y: Yaritza Leo on 01-30-2025 Monocytes/100 WBC (Bld) 18.5 % High 0-10 [facility] Comment on above: Performed By: #### L 501.5200, L500.2500, L501.2300, L100.0100 ####[facility] [address] [place], [address] Neutrophil percentageOrdered By: Yaritza Leo on 01-30-2025 Neutrophils/100 WBC (Bld) 53.2 % Normal 47-70 [facility] Comment on above: Performed By: #### L 501.5200, L500.2500, L501.2300, L100.0100 ####[facility] [address] [place], [address] Phosphoruson 01-30-2025 Phosphate [Mass/Vol] 2.7 mg/dL Normal 2.7-4.5 [facility] Comment on above: Performed By: #### L 501.5200, L500.2500, L501.2300, L100.0100 ####[facility] [address] [place], [address] Urine Cultureon 01-30-2025 URC Normal [facility] Comment on above: Performed By: #### M 100.2200 ####[facility] [address] [place], [address] Bedside Glucoseon 01-29-2025 FINGERSTICK GLU 174 mg/dL High 74-106 [facility] Comment on above: Result Comment: BRISA GEMENT OF PATIENT CARE PER NURSING PROTOCOL Performed By: #### L 501.080 ####[facility] [address] [place], [address] FINGERSTICK GLU 163 mg/dL High 74-106 [facility] Comment on above: Result Comment: BRISA GEMENT OF PATIENT CARE PER NURSING PROTOCOL Performed By: #### L 501.080 ####[facility] [address] [place], [address] FINGERSTICK GLU 196 mg/dL High 74-106 [facility] Comment on above: Result Comment: BRISA GEMENT OF PATIENT CARE PER NURSING PROTOCOL Performed By: #### L 501.080 ####[facility] [address] [place], [address] FINGERSTICK GLU 237 mg/dL High -106 [facility] Comment on above: Result Comment: BRISA GEMENT OF PATIENT CARE PER NURSING PROTOCOL Performed By: #### L 501.080 ####[facility] [address] [place], [address] FINGERSTICK GLU 172 mg/dL High [facility]106 [facility] Comment on above: Result Comment: BRISA GEMENT OF PATIENT CARE PER NURSING PROTOCOL Performed By: #### L 501.080 ####[facility] [address] [place], [address] Bilirubin, totalOrdered By: Boone Izquierdo on 01-29-2025 Bilirubin [Mass/Vol] 1.81 mg/dL High 0.00-1.30 [facility] CBC W/Diff, Automatedon 01-03 Absolute Lymph 0.83 X10 3/uL Normal 0.83-4.51 [facility] Comment on above: Performed By: #### L 500.4050, L100.0100 ####[facility] [address] [place], [address] Absolute Neut 3.0 X10 3/uL Normal 2.0-7.7 [facility] Comment on above: Performed By: #### L 500.4050, L100.0100 ####[facility] [address] [place], [address] Basophils/100 WBC (Bld) 0.8 % Normal 0-1 [facility] Comment on above: Performed By: #### L 500.4050, L100.0100 ####[facility] [address] [place], [address] Eosinophils/100 WBC (Bld) 5.3 % High 0-5 [facility] Comment on above: Performed By: #### L 500.4050, L100.0100 ####[facility] [address] [place], [address] Erythrocyte distribution width (RBC) [Ratio] 18.4 % High 11.6-14.6 [facility] Comment on above: Performed By: #### L 500.4050, L100.0100 ####[facility] [address] [place], [address] Hematocrit (Bld) [Volume fraction] 24.8 % Low 40-54 [facility] Comment on above: Performed By: #### L 500.4050, L100.0100 ####[facility] [address] [place], [address] Hemoglobin (Bld) [Mass/Vol] 8.1 g/dL Low 13.0-16.5 [facility] Comment on above: Performed By: #### L 500.4050, L100.0100 ####[facility] [address] [place], [address] IG% 0.800 Normal 0.0-0.9 [facility] Comment on above: Result Comment: IG% - Immature Granulocytes (promyelocytes, myelocytes andmetamyelocytes) > 1% indicates that a LEFT SHIFT is Present. Performed By: #### L 500.4050, L100.0100 ####[facility] [address] [place], [address] Lymphocytes/100 WBC (Bld) 17.1 % Low 19-41 [facility] Comment on above: Performed By: #### L 500.4050, L100.0100 ####[facility] [address] [place], [address] MCH (RBC) [Entitic mass] 29.6 pg Normal 27.0-32.0 [facility] Comment on above: Performed By: #### L 500.4050, L100.0100 ####[facility] [address] [place], [address] MCHC (RBC) [Mass/Vol] 32.7 g/dL Normal 32-36 [facility] Comment on above: Performed By: #### L 500.4050, L100.0100 ####[facility] [address] [place], [address] MCV (RBC) [Entitic vol] 90.5 fL Normal 80-94 [facility] Comment on above: Performed By: #### L 500.4050, L100.0100 ####[facility] [address] [place], [address] Monocytes/100 WBC (Bld) 15.2 % High 0-10 [facility] Comment on above: Performed By: #### L 500.4050, L100.0100 ####[facility] [address] [place], [address] Neutrophils/100 WBC (Bld) 60.8 % Normal 47-70 [facility] Comment on above: Performed By: #### L 500.4050, L100.0100 ####[facility] [address] [place], [address] Nucleated RBC (Bld) [#/Vol] 0 10*3/uL Normal 0-5 [facility] Comment on above: Performed By: #### L 500.4050, L100.0100 ####[facility] [address] [place], [address] Platelet mean volume (Bld) [Entitic vol] 11.6 fL Normal 6.2-12.0 [facility] Comment on above: Performed By: #### L 500.4050, L100.0100 ####[facility] [address] [place], [address] Platelets (Bld) [#/Vol] 120 10*3/uL Low 150-450 [facility] Comment on above: Performed By: #### L 500.4050, L100.0100 ####[facility] [address] [place], [address] RBC (Bld) [#/Vol] 2.74 10*6/uL Low 4.6-6.2 [facility] Comment on above: Performed By: #### L 500.4050, L100.0100 ####[facility] [address] [place], [address] RDW SD 60.7 fl High 35.1-43.9 [facility] Comment on above: Performed By: #### L 500.4050, L100.0100 ####[facility] [address] [place], [address] WBC (Bld) [#/Vol] 4.9 10*3/uL Normal 4.4-11.0 [facility] Comment on above: Performed By: #### L 500.4050, L100.0100 ####[facility] [address] [place], [address] Comprehensive Metabolic Prof ilon 01-29-2025 Albumin [Mass/Vol] 2.3 g/dL Low 3.5-5.0 [facility] Comment on above: Performed By: #### L 500.4050, L100.0100 ####[facility] [address] [place], [address] Albumin/Globulin [Mass ratio] 0.8 {ratio} Low 0.9-2.4 [facility] Comment on above: Performed By: #### L 500.4050, L100.0100 ####[facility] [address] [place], [address] ALK PHOS 180 U/L High 40-129 [facility] Comment on above: Performed By: #### L 500.4050, L100.0100 ####[facility] [address] [place], [address] ALT [Catalytic activity/Vol] 30 U/L Normal <=46 [facility] Comment on above: Performed By: #### L 500.4050, L100.0100 ####[facility] [address] [place], [address] AST [Catalytic activity/Vol] 52 U/L High <=37 [facility] Comment on above: Performed By: #### L 500.4050, L100.0100 ####[facility] [address] [place], [address] Bilirubin [Mass/Vol] 1.81 mg/dL High 0.00-1.30 [facility] Comment on above: Performed By: #### L 500.4050, L100.0100 ####[facility] [address] [place], [address] BUN/CRE 11.6 RATIO Normal 10-20 [facility] Comment on above: Performed By: #### L 500.4050, L100.0100 ####[facility] [address] [place], [address] Calcium [Mass/Vol] 8.8 mg/dL Normal 7.6-11.0 [facility] Comment on above: Performed By: #### L 500.4050, L100.0100 ####[facility] [address] [place], [address] Chloride [Moles/Vol] 100 mmol/L Normal 98-108 [facility] Comment on above: Performed By: #### L 500.4050, L100.0100 ####[facility] [address] [place], [address] CO2 [Moles/Vol] 19.5 mmol/L Low 21.0-32.0 [facility] Comment on above: Performed By: #### L 500.4050, L100.0100 ####[facility] [address] [place], [address] Creatinine [Mass/Vol] 1.09 mg/dL Normal 0.70-1.20 [facility] Comment on above: Performed By: #### L 500.4050, L100.0100 ####[facility] [address] [place], [address] ECRCL 94.75 ml/min Normal 50-250 [facility] Comment on above: Performed By: #### L 500.4050, L100.0100 ####[facility] [address] [place], [address] GAP 14 Normal 5-15 [facility] Comment on above: Performed By: #### L 500.4050, L100.0100 ####[facility] [address] [place], [address] GFR/1.73 sq M.predicted among non-blacks MDRD (S/P/Bld) [Vol rate/Area] 79 mL/min/{1.73_m2} Normal >60 [facility] Comment on above: Result Comment: mL/m in/1.73m2 CKD-EPI Creatinine Equation (2020) Performed By: #### L 500.4050, L100.0100 ####[facility] [address] [place], [address] Globulin (S) [Mass/Vol] 3.1 g/dL Normal 2.2-4.2 [facility] Comment on above: Performed By: #### L 500.4050, L100.0100 ####[facility] [address] [place], [address] Glucose [Mass/Vol] 265 mg/dL High 70-99 [facility] Comment on above: Performed By: #### L 500.4050, L100.0100 ####[facility] [address] [place], [address] Potassium [Moles/Vol] 3.5 mmol/L Normal 3.3-5.1 [facility] Comment on above: Performed By: #### L 500.4050, L100.0100 ####[facility] [address] [place], [address] Sodium [Moles/Vol] 133 mmol/L Normal 133-145 [facility] Comment on above: Performed By: #### L 500.4050, L100.0100 ####[facility] [address] [place], [address] T PROT 5.4 g/dL Low 5.9-8.4 [facility] Comment on above: Performed By: #### L 500.4050, L100.0100 ####[facility] [address] [place], [address] Urea nitrogen [Mass/Vol] 13 mg/dL Normal 4-19 [facility] Comment on above: Performed By: #### L 500.4050, L100.0100 ####[facility] [address] [place], [address] No Panel InformationOrdered By: Boone Izquierdo on 01-29-2025 52 U/L High <38 [facility] Serum globulin measurementOr dered By: Boone Izquierdo on 01-29-2025 Globulin (S) [Mass/Vol] 3.1 g/dL 2.2-4.2 [facility] Serum or plasma alanine thomas otransferase (ALT) measurementOrdered By: Boone Izquierdo on 01-29-2025 ALT [Catalytic activity/Vol] 30 U/L <47 [facility] Serum or plasma albumin roosevelt urement (mass/volume)Ordered By: Boone Izquierdo on 01-29-2025 Albumin [Mass/Vol] 2.3 g/dL Low 3.5-5.0 [facility] Serum or plasma albumin/glob ulin mass ratioOrdered By: Boone Izquierdo on 01-29-2025 Albumin/Globulin [Mass ratio] 0.8 {ratio} Low 0.9-2.4 [facility] Serum or plasma alkaline kendrick sphatase measurementOrdered By: Boone Izquierdo on 01-29-2025 ALP [Catalytic activity/Vol] 180 U/L High 40-129 [facility] Total proteinOrdered By: Danita Izquierdo on 01-29-2025 Protein [Mass/Vol] 5.4 g/dL Low 5.9-8.4 [facility] Abdomen/Pelvis W IV Cont ONL Yon 01-28-2025 Abdomen/Pelvis W IV Cont ONLY Normal [facility] Absolute lymphocyte countOrd ered By: Danny Hutton on 01-28-2025 Lymphocytes Auto (Unsp spec) [#/Vol] 0.98 10*3/uL 0.83-4.51 [facility] Activated partial thrombopla stin time (aPTT) in platelet poor plasma by coagulation aOrdered By: Danny Hutton on 01-28-2025 aPTT Coag (PPP) [Time] 38.4 s High 24.1-36.2 [facility] Ammoniaon 01-28-2025 Ammonia (P) [Moles/Vol] 108.0 umol/L High 16-60 [facility] Comment on above: Order Comment: REDRA W. PREVIOUS SPECIMEN REJECTED DUE TOHEMOLYSIS. 01/28/25 0450 [address]. Performed By: #### L 503.5510 ####[facility] [address] [place], [place], [phone] Anion gap in Serum or Plasma Ordered By: Danny Hutton on 01-28-2025 Anion gap [Moles/Vol] 14 mmol/L 5- [facility] Automated lymphocyte count a s percentage of total leukocytesOrdered By: Danny Hutton on 01-28-2025 Lymphocytes/100 WBC Auto (Unsp spec) 18.8 % Low 19- [facility] BUN/creatinine ratioOrdered By: Dannyjersey Hutton on 01-28-2025 Urea nitrogen/Creatinine [Mass ratio] 12.8 mg/mg 10- [facility] Basic Metabolic Profile (BMP )on 01-28-2025 CO2 [Moles/Vol] 22.1 mmol/L Normal 21.0-32.0 [facility] Comment on above: Performed By: #### L 500.3400, L300.3900, L500.2500, L501.2450, L503.6005, L501.5200, L300.4310, L501.4021, L100.0100, L503.7505 ####[facility] [address] [place], [place], [phone] GAP 14 Normal - [facility] Comment on above: Performed By: #### L 500.3400, L300.3900, L500.2500, L501.2450, L503.6005, L501.5200, L300.4310, L501.4021, L100.0100, L503.7505 ####[facility] [address] [place], [place], [phone] Basophil percentageOrdered B y: Danny Hutton on 01-28-2025 Basophils/100 WBC (Bld) 0.8 % 0-1 [facility] Bedside Glucoseon 01-28-2025 FINGERSTICK GLU 102 mg/dL Normal 74-106 [facility] Comment on above: Result Comment: BRISA GEMENT OF PATIENT CARE PER NURSING PROTOCOL Performed By: #### L 501.080 ####[facility] [address] [place], [place], [phone] FINGERSTICK GLU 96 mg/dL Normal 74-106 [facility] Comment on above: Result Comment: BRISA GEMENT OF PATIENT CARE PER NURSING PROTOCOL Performed By: #### L 501.080 ####[facility] [address] [place], [place], [phone] Bilirubin Test strip Ql (U)O rdered By: Danny Hutton on 01-28-2025 Bilirubin Ql (U) Negative Negative [facility] Bilirubin directOrdered By: Danny Hutton on 01-28-2025 Bilirubin.direct [Mass/Vol] 1.04 mg/dL High 0.00-0.30 [facility] Bilirubin, totalOrdered By: Danny Hutton on 01-28-2025 Bilirubin [Mass/Vol] 1.91 mg/dL High 0.00-1.30 [facility] Blood cultureOrdered By: Silvano Hutton on 01-28-2025 Bacteria identified Cx Nom (Bld) No growth in 5 days. [facility] Bacteria identified Cx Nom (Bld) No growth in 5 days. [facility] CBC W/Diff, Automatedon - Absolute Lymph 0.98 X10 3/uL Normal 0.83-4.51 [facility] Comment on above: Performed By: #### L 500.3400, L300.3900, L500.2500, L501.2450, L503.6005, L501.5200, L300.4310, L501.4021, L100.0100, L503.7505 ####[facility] [address] [place], [place], [phone] Absolute Neut 3.0 X10 3/uL Normal 2.0-7.7 [facility] Comment on above: Performed By: #### L 500.3400, L300.3900, L500.2500, L501.2450, L503.6005, L501.5200, L300.4310, L501.4021, L100.0100, L503.7505 ####[facility] [address] [place], [place], [phone]) Basophils/100 WBC (Bld) 0.8 % Normal 0-1 [facility] Comment on above: Performed By: #### L 500.3400, L300.3900, L500.2500, L501.2450, L503.6005, L501.5200, L300.4310, L501.4021, L100.0100, L503.7505 ####[facility] [address] [place], [address](298) Eosinophils/100 WBC (Bld) 4.6 % Normal 0-5 [facility] Comment on above: Performed By: #### L 500.3400, L300.3900, L500.2500, L501.2450, L503.6005, L501.5200, L300.4310, L501.4021, L100.0100, L503.7505 ####[facility] [address] [place], [place], [phone]) Erythrocyte distribution width (RBC) [Ratio] 18.4 % High 11.6-14.6 [facility] Comment on above: Performed By: #### L 500.3400, L300.3900, L500.2500, L501.2450, L503.6005, L501.5200, L300.4310, L501.4021, L100.0100, L503.7505 ####[facility] [address] [place], [place], [phone]) Hematocrit (Bld) [Volume fraction] 25.2 % Low 40-54 [facility] Comment on above: Performed By: #### L 500.3400, L300.3900, L500.2500, L501.2450, L503.6005, L501.5200, L300.4310, L501.4021, L100.0100, L503.7505 ####[facility] [address] [place], [phone]) Hemoglobin (Bld) [Mass/Vol] 8.3 g/dL Low 13.0-16.5 [facility] Comment on above: Performed By: #### L 500.3400, L300.3900, L500.2500, L501.2450, L503.6005, L501.5200, L300.4310, L501.4021, L100.0100, L503.7505 ####[facility] [address] [place], [address] IG% 1.300 High 0.0-0.9 [facility] Comment on above: Result Comment: IG% - Immature Granulocytes (promyelocytes, myelocytes andmetamyelocytes) > 1% indicates that a LEFT SHIFT is Present. Performed By: #### L 500.3400, L300.3900, L500.2500, L501.2450, L503.6005, L501.5200, L300.4310, L501.4021, L100.0100, L503.7505 ####[facility] [address] [place], [address] Lymphocytes/100 WBC (Bld) 18.8 % Low 19-41 [facility] Comment on above: Performed By: #### L 500.3400, L300.3900, L500.2500, L501.2450, L503.6005, L501.5200, L300.4310, L501.4021, L100.0100, L503.7505 ####[facility] [address] [place], [address](147) MCH (RBC) [Entitic mass] 29.4 pg Normal 27.0-32.0 [facility] Comment on above: Performed By: #### L 500.3400, L300.3900, L500.2500, L501.2450, L503.6005, L501.5200, L300.4310, L501.4021, L100.0100, L503.7505 ####[facility] [address] [place], [address] MCHC (RBC) [Mass/Vol] 32.9 g/dL Normal 32-36 [facility] Comment on above: Performed By: #### L 500.3400, L300.3900, L500.2500, L501.2450, L503.6005, L501.5200, L300.4310, L501.4021, L100.0100, L503.7505 ####[facility] [address] [place], [address] MCV (RBC) [Entitic vol] 89.4 fL Normal 80-94 [facility] Comment on above: Performed By: #### L 500.3400, L300.3900, L500.2500, L501.2450, L503.6005, L501.5200, L300.4310, L501.4021, L100.0100, L503.7505 ####[facility] [address] [place], [address] Monocytes/100 WBC (Bld) 16.7 % High 0-10 [facility] Comment on above: Performed By: #### L 500.3400, L300.3900, L500.2500, L501.2450, L503.6005, L501.5200, L300.4310, L501.4021, L100.0100, L503.7505 ####[facility] [address] [place], [address] Neutrophils/100 WBC (Bld) 57.8 % Normal 47-70 [facility] Comment on above: Performed By: #### L 500.3400, L300.3900, L500.2500, L501.2450, L503.6005, L501.5200, L300.4310, L501.4021, L100.0100, L503.7505 ####[facility] [address] [place], [address] Nucleated RBC (Bld) [#/Vol] 0 10*3/uL Normal 0-5 [facility] Comment on above: Performed By: #### L 500.3400, L300.3900, L500.2500, L501.2450, L503.6005, L501.5200, L300.4310, L501.4021, L100.0100, L503.7505 ####[facility] [address] [place], [place], [phone] Platelet mean volume (Bld) [Entitic vol] 11.5 fL Normal 6.2-12.0 [facility] Comment on above: Performed By: #### L 500.3400, L300.3900, L500.2500, L501.2450, L503.6005, L501.5200, L300.4310, L501.4021, L100.0100, L503.7505 ####[facility] [address] [place], [place], [phone]) Platelets (Bld) [#/Vol] 115 10*3/uL Low 150-450 [facility] Comment on above: Performed By: #### L 500.3400, L300.3900, L500.2500, L501.2450, L503.6005, L501.5200, L300.4310, L501.4021, L100.0100, L503.7505 ####[facility] [address] [place], [address] RBC (Bld) [#/Vol] 2.82 10*6/uL Low 4.6-6.2 [facility] Comment on above: Performed By: #### L 500.3400, L300.3900, L500.2500, L501.2450, L503.6005, L501.5200, L300.4310, L501.4021, L100.0100, L503.7505 ####[facility] [address] [place], [place], [phone](719) RDW SD 60.7 fl High 35.1-43.9 [facility] Comment on above: Performed By: #### L 500.3400, L300.3900, L500.2500, L501.2450, L503.6005, L501.5200, L300.4310, L501.4021, L100.0100, L503.7505 ####[facility] [address] [facility] [place], [place], [phone] WBC (Bld) [#/Vol] 5.2 10*3/uL Normal 4.4-11.0 [facility] Comment on above: Performed By: #### L 500.3400, L300.3900, L500.2500, L501.2450, L503.6005, L501.5200, L300.4310, L501.4021, L100.0100, L503.7505 ####[facility] [address] [facility] [place], [place], [phone] Carbon dioxide, total [Moles /volume] in Central venous bloodOrdered By: Danny Hutton on 01-28-2025 CO2 [Moles/Vol] 22.1 mmol/L 21.0-32.0 [facility] Chest PA and Lateralon 01-28 Chest PA and Lateral Normal [facility] Chloride assayOrdered By: Darin Hutton on 01-28-2025 Chloride [Moles/Vol] 95 mmol/L Low 98-108 [facility] Emergency Department Summary on 01-28-2025 Emergency Department Summary Normal [facility] Eosinophil percentageOrdered By: Danny Hutton on 01-28-2025 Eosinophils/100 WBC (Bld) 4.6 % 0-5 [facility] Erythrocyte distribution wid th ratioOrdered By: Danyn Hutton on 01-28-2025 Erythrocyte distribution width (RBC) [Ratio] 18.4 % High 11.6-14.6 [facility] Erythrocyte distribution wid th standard deviationOrdered By: Danny Barker on 01-28-2025 Erythrocyte distribution width (RBC) [Ratio] 60.7 fl High 35.1-43.9 [facility] Glomerular filtration rate ( GFR) estimation/1.73 sq m using serum, plasma, or whole bOrdered By: Danny Hutton on 01-28-2025 GFR/1.73 sq M.predicted among non-blacks MDRD (S/P/Bld) [Vol rate/Area] 73 mL/min/{1.73_m2} >60 [facility] H AND P Exam - Hospitaliston 01-28-2025 H&P Exam - Hospitalist Normal [facility] Hematocrit Auto (Bld) [Volum e fraction]Ordered By: Danny Hutton on 01-28-2025 Hematocrit (Bld) [Volume fraction] 25.2 % Low 40-54 [facility] Hemoglobin measurementOrdere d By: Danny Hutton on 01-28-2025 Hemoglobin (Bld) [Mass/Vol] 8.3 g/dL Low 13.0-16.5 [facility] Immature granulocytes/100 WB C Auto (Bld)Ordered By: Danny Hutton on 01-28-2025 Immature granulocytes/100 WBC (Bld) 1.300 % High 0.0-0.9 [facility] Influenza virus A and B and SARS-CoV-2 (COVID-19) and Respiratory syncytial virus RNAOrdered By: Danny Hutton on 01-28-2025 SARS-CoV-2 (COVID-19) RNA ANANTH+probe Ql (Unsp spec) [facility] Ketones Test strip Ql (U)Ord ered By: Danny Hutton on 01-28-2025 Ketones Ql (U) Negative Negative [facility] L499.0042on 01-28-2025 Trop T High Sen Normal <=22 [facility] Comment on above: Result Comment: Devonte goodwin via OM: Ordered Performed By: #### L 499.0042 ####[facility] [address] [place], [address] L501.4021on 01-28-2025 Trop T High Sen 13 ng/L Normal <=22 [facility] Comment on above: Performed By: #### L 500.3400, L300.3900, L500.2500, L501.2450, L503.6005, L501.5200, L300.4310, L501.4021, L100.0100, L503.7505 ####[facility] [address] [place], [address] L503.7505on 01-28-2025 Natriuretic peptide B (Bld) [Mass/Vol] 140 pg/mL Normal <=900 [facility] Comment on above: Result Comment: Hear t Failure Unlikely: < 300 pg/mLHeart Failure Likely< 50 Years: > 450 pg/mL50-75 Years: > 900 pg/mL>75 Years: > 1800 pg/mL Performed By: #### L 500.3400, L300.3900, L500.2500, L501.2450, L503.6005, L501.5200, L300.4310, L501.4021, L100.0100, L503.7505 ####[facility] [address] [place], [place], [phone] Lactic Acidon 01-28-2025 Lactate [Moles/Vol] 2.8 mmol/L Invalid Interpretation Code 0.0-2.0 [facility] Comment on above: Result Comment: Crit ical Result(s) Called at: 01/28/2025-09:07 by: Jennifer Marsh.??Results read back by same. Performed By: #### L 503.6005 ####[facility] [address] [place], [place], [phone] Lactate [Moles/Vol] 3.4 mmol/L Invalid Interpretation Code 0.0-2.0 [facility] Comment on above: Order Comment: Y Result Comment: Crit ical Result(s) Called at: 01/28/2025-04:24 by: Jennifer to Arianna Alva.??Results read back by same. Performed By: #### L 500.3400, L300.3900, L500.2500, L501.2450, L503.6005, L501.5200, L300.4310, L501.4021, L100.0100, L503.7505 ####[facility] [address] [place], [place], [phone] Lipaseon 01-28-2025 Lipase [Catalytic activity/Vol] 33 U/L Normal 13-75 [facility] Comment on above: Result Comment: Siddhartha bhat note:LIPASE revised reference range effective 22.New Lipase methodology. Expected to produce lower valuesthan the previous assay method.NEW Reference Range: 13 - 75 U/L Performed By: #### L 500.3400, L300.3900, L500.2500, L501.2450, L503.6005, L501.5200, L300.4310, L501.4021, L100.0100, L503.7505 ####[facility] [address] [place], [place], [phone] Liver Profileon 01-28-2025 Albumin [Mass/Vol] 2.5 g/dL Low 3.5-5.0 [facility] Comment on above: Performed By: #### L 500.3400, L300.3900, L500.2500, L501.2450, L503.6005, L501.5200, L300.4310, L501.4021, L100.0100, L503.7505 ####[facility] [address] [place], [address] ALK PHOS 201 U/L High 40-129 [facility] Comment on above: Performed By: #### L 500.3400, L300.3900, L500.2500, L501.2450, L503.6005, L501.5200, L300.4310, L501.4021, L100.0100, L503.7505 ####[facility] [address] [place], [address] ALT [Catalytic activity/Vol] 31 U/L Normal <=46 [facility] Comment on above: Performed By: #### L 500.3400, L300.3900, L500.2500, L501.2450, L503.6005, L501.5200, L300.4310, L501.4021, L100.0100, L503.7505 ####[facility] [address] [place], [place], [phone] AST [Catalytic activity/Vol] 58 U/L High <=37 [facility] Comment on above: Performed By: #### L 500.3400, L300.3900, L500.2500, L501.2450, L503.6005, L501.5200, L300.4310, L501.4021, L100.0100, L503.7505 ####[facility] [address] [place], [address] Bilirubin [Mass/Vol] 1.91 mg/dL High 0.00-1.30 [facility] Comment on above: Performed By: #### L 500.3400, L300.3900, L500.2500, L501.2450, L503.6005, L501.5200, L300.4310, L501.4021, L100.0100, L503.7505 ####[facility] [address] [place], [place], [phone] Bilirubin.direct [Mass/Vol] 1.04 mg/dL High 0.00-0.30 [facility] Comment on above: Performed By: #### L 500.3400, L300.3900, L500.2500, L501.2450, L503.6005, L501.5200, L300.4310, L501.4021, L100.0100, L503.7505 ####[facility] [address] [place], [place], [phone](758) Globulin (S) [Mass/Vol] 3.3 g/dL Normal 2.2-4.2 [facility] Comment on above: Performed By: #### L 500.3400, L300.3900, L500.2500, L501.2450, L503.6005, L501.5200, L300.4310, L501.4021, L100.0100, L503.7505 ####[facility] [address] [place], [address](060) T PROT 5.9 g/dL Normal 5.9-8.4 [facility] Comment on above: Performed By: #### L 500.3400, L300.3900, L500.2500, L501.2450, L503.6005, L501.5200, L300.4310, L501.4021, L100.0100, L503.7505 ####[facility] [address] [place], [place], [phone] M100.678on 01-28-2025 M100.678 SARS-CoV-2 (COVID 19 ) Negative INFLUENZA A Negative INFLUENZA B Negative RSV PCR Negative Normal [facility] Comment on above: Performed By: #### M 100.678 ####[facility] [address] [place], [address] MCV (mean corpuscular volume ) determinationOrdered By: Danny Hutton on 01-28-2025 MCV (RBC) [Entitic vol] 89.4 fL 80-94 [facility] Magnesiumon 01-28-2025 Magnesium [Mass/Vol] 1.7 mg/dL Normal 1.5-2.2 [facility] Comment on above: Performed By: #### L 500.3400, L300.3900, L500.2500, L501.2450, L503.6005, L501.5200, L300.4310, L501.4021, L100.0100, L503.7505 ####[facility] [address] [place], [address] Magnesium measurement (mass/ volume)Ordered By: Danny Hutton on 01-28-2025 Magnesium (Unsp spec) [Mass/Vol] 1.7 mg/dL 1.5-2.2 [facility] Mean corpuscular hemoglobin (MCH) determinationOrdered By: Danny Hutton on 01-28-2025 MCH (RBC) [Entitic mass] 29.4 pg 27.0-32.0 [facility] Monocyte percentageOrdered B y: Danny Hutton on 01-28-2025 Monocytes/100 WBC (Bld) 16.7 % High 0-10 [facility] Mucus LM Ql (Urine sed)Order ed By: Danny Hutton on 01-28-2025 Mucus Ql (Urine sed) 0 SEEN /hpf [facility] Natriuretic peptide.B prohor prachi N-Terminal [Mass/volume] in Serum or PlasmaOrdered By: Danny Hutton on 01-28-2025 Natriuretic peptide.B prohormone N-Terminal [Mass/Vol] 140 pg/mL <900 [facility] Neutrophil percentageOrdered By: Danny Hutton on 01-28-2025 Neutrophils/100 WBC (Bld) 57.8 % 47-70 [facility] Nitrite Test strip Ql (U)Ord ered By: Danny Hutton on 01-28-2025 Nitrite Ql (U) Negative Negative [facility] No Panel InformationOrdered By: Danny Hutton on 01-28-2025 58 U/L High <38 [facility] Partial Thromboplast Timeon 01-28-2025 aPTT Coag (Bld) [Time] 38.4 s High 24.1-36.2 [facility] Comment on above: Performed By: #### L 500.3400, L300.3900, L500.2500, L501.2450, L503.6005, L501.5200, L300.4310, L501.4021, L100.0100, L503.7505 ####[facility] [address] [place], [address] Platelet countOrdered By: Darin Hutton on 01-28-2025 Platelets (Bld) [#/Vol] 115 10*3/uL Low 150-450 [facility] Potassium measurement (mass/ volume)Ordered By: Danny Hutton on 01-28-2025 Potassium (Unsp spec) [Mass/Vol] 3.4 mmol/L 3.3-5.1 [facility] Protein Test strip Ql (U)Ord ered By: Dannyjersey Hutton on 01-28-2025 Protein Ql (U) 100 mg/dl High Negative [facility] Prothrombin Time w/INRon INR Coag (PPP) [Relative time] 1.7 {INR} Normal [facility] Comment on above: Performed By: #### L 500.3400, L300.3900, L500.2500, L501.2450, L503.6005, L501.5200, L300.4310, L501.4021, L100.0100, L503.7505 ####[facility] [address] [place], [address] PT Coag (PPP) [Time] 20.0 s High 11.7-14.9 [facility] Comment on above: Performed By: #### L 500.3400, L300.3900, L500.2500, L501.2450, L503.6005, L501.5200, L300.4310, L501.4021, L100.0100, L503.7505 ####[facility] [address] [place], [address] Prothrombin timeOrdered By: Danny Hutton on 01-28-2025 PT Coag (PPP) [Time] 20.0 s High 11.7-14.9 [facility] RBC Auto (Bld) [#/Vol]Ordere d By: Danny Hutton on 01-28-2025 RBC (Bld) [#/Vol] 2.82 10*6/uL Low 4.6-6.2 [facility] Serum creatinine measurement (mass/volume)Ordered By: Danny Hutton on 01-28-2025 Creatinine [Mass/Vol] 1.16 mg/dL 0.70-1.20 [facility] Serum globulin measurementOr dered By: Danny Hutton on 01-28-2025 Globulin (S) [Mass/Vol] 3.3 g/dL 2.2-4.2 [facility] Serum glucose measurement (m ass/volume)Ordered By: Danny Hutton on 01-28-2025 Glucose [Mass/Vol] 93 mg/dL 70-99 [facility] Serum or plasma alanine thomas otransferase (ALT) measurementOrdered By: Danny Hutton on 01-28-2025 ALT [Catalytic activity/Vol] 31 U/L <47 [facility] Serum or plasma albumin roosevelt urement (mass/volume)Ordered By: Danny Barker on 01-28-2025 Albumin [Mass/Vol] 2.5 g/dL Low 3.5-5.0 [facility] Serum or plasma alkaline kendrick sphatase measurementOrdered By: Danny Hutton on 01-28-2025 ALP [Catalytic activity/Vol] 201 U/L High 40-129 [facility] Serum or plasma calcium roosevelt urement (mass/volume)Ordered By: Danny Barker on 01-28-2025 Calcium [Mass/Vol] 8.9 mg/dL 7.6-11.0 [facility] Serum or plasma urea nitroge n measurement (mass/volume)Ordered By: Danny Hutton on 01-28-2025 Urea nitrogen [Mass/Vol] 15 mg/dL 4-19 [facility] Sodium levelOrdered By: Srinath Hutton on 01-28-2025 Sodium [Moles/Vol] 131 mmol/L Low 133-145 [facility] Squamous epithelial cells de tection in urine sediment by light microscopyOrdered By: Dnany Hutton on 01-28-2025 Epithelial cells.squamous LM Ql (Urine sed) 0 SEEN /hpf 0-5 [facility] Total proteinOrdered By: Silvano Hutton on 01-28-2025 Protein [Mass/Vol] 5.9 g/dL 5.9-8.4 [facility] Troponin T.cardiac [Mass/vol ume] in Serum or Plasma by High sensitivity methodOrdered By: Danny Hutton on 01-28-2025 Troponin T.cardiac High sensitivity method [Mass/Vol] 13 ng/L <22 [facility] Urinalysis, Completeon 01-28 BACTERIA 1+ /hpf Normal None Seen [facility] Comment on above: Order Comment: COLOR OF URINE MAY AFFECT DIPSTICK RESULTS.MEN'S DESIGNER TO SPECIFY Performed By: #### L 400.0001 ####[facility] [address] [place], [place], [id number] RBC > 100 SEEN Normal 0-5 [facility] Comment on above: Order Comment: COLOR OF URINE MAY AFFECT DIPSTICK RESULTS.MEN'S DESIGNER TO SPECIFY Performed By: #### L 400.0001 ####[facility] [address] [place], [place], [phone] WBC 10-25 SEEN Normal 0-[address] [place] [address] Comment on above: Order Comment: COLOR OF URINE MAY AFFECT DIPSTICK RESULTS.MEN'S DESIGNER TO SPECIFY Performed By: #### L 400.0001 ####[facility] [address] [place], [address] EPI,SQUAMOUS 0 SEEN Normal 0-5 [facility] Comment on above: Order Comment: COLOR OF URINE MAY AFFECT DIPSTICK RESULTS.MEN'S DESIGNER TO SPECIFY Performed By: #### L 400.0001 ####[facility] [address] [place], [address] Mucus Ql (Urine sed) 0 SEEN Normal [facility] Comment on above: Order Comment: COLOR OF URINE MAY AFFECT DIPSTICK RESULTS.MEN'S DESIGNER TO SPECIFY Performed By: #### L 400.0001 ####[facility] [address] [place], [address] Urine clarityOrdered By: Silvano Hutton on 01-28-2025 Clarity (U) Cloudy Clear [facility] Urine color determinationOrd ered By: Danny Hutton on 01-28-2025 Color (U) Lexis Yellow [facility] Urine cultureOrdered By: Silvano Hutton on 01-28-2025 Bacteria identified Cx Nom (U) Vancomycin Resist. E. faecalis Abnormal [facility] Bacteria identified Cx Nom (U) GNR lactose barkeeper Abnormal [facility] Urine glucose detectionOrder ed By: Danny Hutton on 01-28-2025 Glucose Ql (U) Normal mg/dl Normal [facility] Urine leukocyte esterase det ection by dipstickOrdered By: Danny Hutton on 01-28-2025 Leukocyte esterase Test strip Ql (U) 500 /ul High Negative [facility] Urine pHOrdered By: Danny Santiago on 01-28-2025 pH (U) 8.0 [pH] 5.0 - 8.0 [facility] Urine sediment bacteria coun t by microscopy (number/high power field)Ordered By: Danny Hutton on 01-28-2025 Bacteria LM.HPF (Urine sed) [#/Area] 1 /[HPF] None Seen [facility] Urine specific gravity measu rementOrdered By: Danny Hutton on 01-28-2025 Specific gravity (U) [Rel density] 1.015 1.002-1.030 [facility] Urine urobilinogen measureme ntOrdered By: Danny Hutton on 01-28-2025 Urobilinogen Ql (U) Normal mg/dl Normal [facility] Venous blood ammonia measure mentOrdered By: Dannyjersey Hutton on 01-28-2025 Ammonia (P) [Moles/Vol] 108.0 umol/L High 16-60 [facility] White blood cell (WBC) count Ordered By: [facility] on 01-28-2025 WBC (Bld) [#/Vol] 5.2 10*3/uL 4.4-11.0 [facility] White blood cell countOrdere d By: [facility] HealthOrly on 01-28-2025 White blood cell count 10-25 SEEN /hpf 0-5 [facility] Body Fluid Cell Count+Diffon 01-25-2025 MESOTHELIAL 7 Normal [facility] Comment on above: Order Comment: The r eference range and other method performancespecifications have not been established for this bodyfluid. The test must be integrated into the clinicalcontext for interpretation. Result Comment: AMENDED REPORT 01/25/25 1125 OTHER CELL/BF previously reported as: 7 % Performed By: #### L 200.0200, L350.1000, M100.2900, M100.4001, M1 ####[facility] [address] [place], [place], [id number] Culture, Anaerobic Any Sourc iliana 01-24-2025 CUAN No growth in 5 days. Normal [facility] Comment on above: Performed By: #### L 200.0200, L350.1000, M100.2900, M100.4001, M1 ####[facility] [address] [place], [place], [id number] Anion gap in Serum or Plasma Ordered By: Anurag Irene on 01-21-2025 Anion gap [Moles/Vol] 7 mmol/L 5-15 [facility] BUN/creatinine ratioOrdered By: Anurag Irene on 01-21-2025 Urea nitrogen/Creatinine [Mass ratio] 15.6 mg/mg 10-20 [facility] Bedside Glucoseon 01-21-2025 FINGERSTICK GLU 151 mg/dL High 74-106 [facility] Comment on above: Result Comment: BRISA GEMENT OF PATIENT CARE PER NURSING PROTOCOL Performed By: #### L 501.080 ####[facility] [address] [place], [address] FINGERSTICK GLU 199 mg/dL High 74-106 [facility] Comment on above: Result Comment: BRISA GEMENT OF PATIENT CARE PER NURSING PROTOCOL Performed By: #### L 501.080 ####[facility] [address] [place], [address] Bilirubin, totalOrdered By: Anurag Irene on 01-21-2025 Bilirubin [Mass/Vol] 1.52 mg/dL High 0.00-1.30 [facility] Carbon dioxide, total [Moles /volume] in Central venous bloodOrdered By: Anurag Irene on 01-21-2025 CO2 [Moles/Vol] 29.7 mmol/L 21.0-32.0 [facility] Chloride assayOrdered By: Francois Irene on 01-21-2025 Chloride [Moles/Vol] 96 mmol/L Low 98-108 [facility] Comprehensive Metabolic Prof ilon 01-21-2025 Albumin [Mass/Vol] 2.1 g/dL Low 3.5-5.0 [facility] Comment on above: Performed By: #### L 500.4050 ####[facility] [address] [place], [address] Albumin/Globulin [Mass ratio] 0.8 {ratio} Low 0.9-2.4 [facility] Comment on above: Performed By: #### L 500.4050 ####[facility] [address] [place], [address] ALK PHOS 204 U/L High 40-129 [facility] Comment on above: Performed By: #### L 500.4050 ####[facility] [address] [place], [address] ALT [Catalytic activity/Vol] 28 U/L Normal <=46 [facility] Comment on above: Performed By: #### L 500.4050 ####[facility] [address] [place], [address] AST [Catalytic activity/Vol] 48 U/L High <=37 [facility] Comment on above: Performed By: #### L 500.4050 ####[facility] [address] [place], [address] Bilirubin [Mass/Vol] 1.52 mg/dL High 0.00-1.30 [facility] Comment on above: Performed By: #### L 500.4050 ####[facility] [address] [place], [address] BUN/CRE 15.6 RATIO Normal 10-20 [facility] Comment on above: Performed By: #### L 500.4050 ####[facility] [address] [place], [address] Calcium [Mass/Vol] 8.1 mg/dL Normal 7.6-11.0 [facility] Comment on above: Performed By: #### L 500.4050 ####[facility] [address] [place], [address] Chloride [Moles/Vol] 96 mmol/L Low 98-108 [facility] Comment on above: Performed By: #### L 500.4050 ####[facility] [address] [place], [address] CO2 [Moles/Vol] 29.7 mmol/L Normal 21.0-32.0 [facility] Comment on above: Performed By: #### L 500.4050 ####[facility] [address] [place], [address] Creatinine [Mass/Vol] 0.86 mg/dL Normal 0.70-1.20 [facility] Comment on above: Performed By: #### L 500.4050 ####[facility] [address] [place], [address] ECRCL 114.50 ml/min Normal 50-250 [facility] Comment on above: Performed By: #### L 500.4050 ####[facility] [address] [place], [address] GAP 7 Normal 5-15 [facility] Comment on above: Performed By: #### L 500.4050 ####[facility] [address] [place], [address] GFR/1.73 sq M.predicted among non-blacks MDRD (S/P/Bld) [Vol rate/Area] 100 mL/min/{1.73_m2} Normal >60 [facility] Comment on above: Result Comment: mL/m in/1.73m2 CKD-EPI Creatinine Equation (2020) Performed By: #### L 500.4050 ####[facility] [address] [place], [address] Globulin (S) [Mass/Vol] 2.6 g/dL Normal 2.2-4.2 [facility] Comment on above: Performed By: #### L 500.4050 ####[facility] [address] [place], [address] Glucose [Mass/Vol] 199 mg/dL High 70-99 [facility] Comment on above: Performed By: #### L 500.4050 ####[facility] [address] [place], [address] Potassium [Moles/Vol] 3.1 mmol/L Low 3.3-5.1 [facility] Comment on above: Performed By: #### L 500.4050 ####[facility] [address] [place], [place], [address] Sodium [Moles/Vol] 133 mmol/L Normal 133-145 [facility] Comment on above: Performed By: #### L 500.4050 ####[facility] [address] [place], [place], [id number] T PROT 4.7 g/dL Low 5.9-8.4 [facility] Comment on above: Performed By: #### L 500.4050 ####[facility] [address] [place], [place], [address] Urea nitrogen [Mass/Vol] 13 mg/dL Normal 4-19 [facility] Comment on above: Performed By: #### L 500.4050 ####[facility] [address] [place], [place], [address] Glomerular filtration rate ( GFR) estimation/1.73 sq m using serum, plasma, or whole bOrdered By: Anurag Irene on 01-21-2025 GFR/1.73 sq M.predicted among non-blacks MDRD (S/P/Bld) [Vol rate/Area] 100 mL/min/{1.73_m2} >60 [facility] deOrdered By: Anurag Irene on 01-21-2025 Glucose [Mass/Vol] 151 mg/dL High 74-106 [facility] No Panel InformationOrdered By: Anurag Irene on 01-21-2025 48 U/L High <38 [facility] Potassium measurement (mass/ volume)Ordered By: Anurag Irene on 01-21-2025 Potassium (Unsp spec) [Mass/Vol] 3.1 mmol/L Low 3.3-5.1 [facility] Serum creatinine measurement (mass/volume)Ordered By: Anurag Irene on 01-21-2025 Creatinine [Mass/Vol] 0.86 mg/dL 0.70-1.20 [facility] Serum globulin measurementOr dered By: Anurag Irene on 01-21-2025 Globulin (S) [Mass/Vol] 2.6 g/dL 2.2-4.2 [facility] Serum glucose measurement (m ass/volume)Ordered By: Anurag Irene on 01-21-2025 Glucose [Mass/Vol] 199 mg/dL High 70-99 [facility] Serum or plasma alanine thomas otransferase (ALT) measurementOrdered By: Anurag Irene on 01-21-2025 ALT [Catalytic activity/Vol] 28 U/L <47 [facility] Serum or plasma albumin roosevelt urement (mass/volume)Ordered By: Anurag Irene on 01-21-2025 Albumin [Mass/Vol] 2.1 g/dL Low 3.5-5.0 [facility] Serum or plasma albumin/glob ulin mass ratioOrdered By: Anurag Irene on 01-21-2025 Albumin/Globulin [Mass ratio] 0.8 {ratio} Low 0.9-2.4 [facility] Serum or plasma alkaline kendrick sphatase measurementOrdered By: Anurag Irene on 01-21-2025 ALP [Catalytic activity/Vol] 204 U/L High 40-129 [facility] Serum or plasma calcium roosevelt urement (mass/volume)Ordered By: Anurag Irene on 01-21-2025 Calcium [Mass/Vol] 8.1 mg/dL 7.6-11.0 [facility] Serum or plasma urea nitroge n measurement (mass/volume)Ordered By: Anurag Irene on 01-21-2025 Urea nitrogen [Mass/Vol] 13 mg/dL 4-19 [facility] Sodium levelOrdered By: Marni Irene on 01-21-2025 Sodium [Moles/Vol] 133 mmol/L 133-145 [facility] Total proteinOrdered By: [place] Irene on 01-21-2025 Protein [Mass/Vol] 4.7 g/dL Low 5.9-8.4 [facility] Absolute lymphocyte countOrd ered By: Anurag Irene on 01-20-2025 Lymphocytes Auto (Unsp spec) [#/Vol] 1.10 10*3/uL 0.83-4.51 [facility] Automated lymphocyte count a s percentage of total leukocytesOrdered By: Anurag Irene on 01-20-2025 Lymphocytes/100 WBC Auto (Unsp spec) 16.3 % Low 19-41 [facility] Basophil percentageOrdered B y: Anurag Irene on 01-20-2025 Basophils/100 WBC (Bld) 0.6 % 0-1 [facility] Bedside Glucoseon 01-20-2025 FINGERSTICK GLU 206 mg/dL High 74-106 [facility] Comment on above: Result Comment: BRISA GEMENT OF PATIENT CARE PER NURSING PROTOCOL Performed By: #### L 501.080 ####[facility] [address] [place], [address] FINGERSTICK GLU 188 mg/dL High [address] [place] [address] Comment on above: Result Comment: BRISA GEMENT OF PATIENT CARE PER NURSING PROTOCOL Performed By: #### L 501.080 ####[facility] [address] [place], [address] FINGERSTICK GLU 167 mg/dL High [facility]106 [facility] Comment on above: Result Comment: BRISA GEMENT OF PATIENT CARE PER NURSING PROTOCOL Performed By: #### L 501.080 ####[facility] [address] [place], [address] FINGERSTICK GLU 164 mg/dL High [address] [place] [address] Comment on above: Result Comment: BRISA GEMENT OF PATIENT CARE PER NURSING PROTOCOL Performed By: #### L 501.080 ####[facility] [address] [place], [address] Blood manual differential co mment interpretation (narrative result)Ordered By: Anurag Irene on 01-20-2025 Manual differential comment Marco Antonio (Bld) [Interp] SCANNED [facility] CBC W/Diff, Automatedon 01-02 PLT EST MOD DEC Normal ADEQ [facility] Comment on above: Performed By: #### L 100.0100 ####[facility] [address] [place], [address] SMEAR COMMENT SCANNED Normal [facility] Comment on above: Performed By: #### L 100.0100 ####[facility] [address] [place], [address] Comprehensive Metabolic Prof ilon 01-20-2025 Albumin [Mass/Vol] 2.0 g/dL Low 3.5-5.0 [facility] Comment on above: Performed By: #### L 500.4050 ####[facility] [address] [place], [address] Albumin/Globulin [Mass ratio] 0.7 {ratio} Low 0.9-2.4 [facility] Comment on above: Performed By: #### L 500.4050 ####[facility] [address] [place], [address] ALK PHOS 211 U/L High 40-129 [facility] Comment on above: Performed By: #### L 500.4050 ####[facility] [address] [place], [address] ALT [Catalytic activity/Vol] 32 U/L Normal <=46 [facility] Comment on above: Performed By: #### L 500.4050 ####[facility] [address] [place], [address] AST [Catalytic activity/Vol] 45 U/L High <=37 [facility] Comment on above: Performed By: #### L 500.4050 ####[facility] [address] [place], [address] Bilirubin [Mass/Vol] 1.61 mg/dL High 0.00-1.30 [facility] Comment on above: Performed By: #### L 500.4050 ####[facility] [address] [place], [address] BUN/CRE 13.4 RATIO Normal 10-20 [facility] Comment on above: Performed By: #### L 500.4050 ####[facility] [address] [place], [address] Calcium [Mass/Vol] 8.1 mg/dL Normal 7.6-11.0 [facility] Comment on above: Performed By: #### L 500.4050 ####[facility] [address] [place], [address] Chloride [Moles/Vol] 95 mmol/L Low 98-108 [facility] Comment on above: Performed By: #### L 500.4050 ####[facility] [address] [place], [address] CO2 [Moles/Vol] 30.3 mmol/L Normal 21.0-32.0 [facility] Comment on above: Performed By: #### L 500.4050 ####[facility] [address] [place], [address] Creatinine [Mass/Vol] 0.87 mg/dL Normal 0.70-1.20 [facility] Comment on above: Performed By: #### L 500.4050 ####[facility] [address] [place], [address] ECRCL 112.61 ml/min Normal 50-250 [facility] Comment on above: Performed By: #### L 500.4050 ####[facility] [address] [place], [address] GAP 7 Normal 5-15 [facility] Comment on above: Performed By: #### L 500.4050 ####[facility] [address] [place], [address] GFR/1.73 sq M.predicted among non-blacks MDRD (S/P/Bld) [Vol rate/Area] 100 mL/min/{1.73_m2} Normal >60 [facility] Comment on above: Result Comment: mL/m in/1.73m2 CKD-EPI Creatinine Equation (2020) Performed By: #### L 500.4050 ####[facility] [address] [place], [address] Globulin (S) [Mass/Vol] 2.9 g/dL Normal 2.2-4.2 [facility] Comment on above: Performed By: #### L 500.4050 ####[facility] [address] [place], [address] Glucose [Mass/Vol] 195 mg/dL High 70-99 [facility] Comment on above: Performed By: #### L 500.4050 ####[facility] [address] [place], [address] Potassium [Moles/Vol] 3.1 mmol/L Low 3.3-5.1 [facility] Comment on above: Performed By: #### L 500.4050 ####[facility] [address] [place], [address] Sodium [Moles/Vol] 133 mmol/L Normal 133-145 [facility] Comment on above: Performed By: #### L 500.4050 ####[facility] [address] [place], [address] T PROT 4.9 g/dL Low 5.9-8.4 [facility] Comment on above: Performed By: #### L 500.4050 ####[facility] [address] [place], [address] Urea nitrogen [Mass/Vol] 12 mg/dL Normal 4-19 [facility] Comment on above: Performed By: #### L 500.4050 ####[facility] [address] [place], [address] Eosinophil percentageOrdered By: Anurag Irene on 01-20-2025 Eosinophils/100 WBC (Bld) 6.5 % High 0-5 [facility] Erythrocyte distribution wid th ratioOrdered By: Anurag Irene on 01-20-2025 Erythrocyte distribution width (RBC) [Ratio] 18.3 % High 11.6-14.6 [facility] Erythrocyte distribution wid th standard deviationOrdered By: Anurag Irene on 01-20-2025 Erythrocyte distribution width (RBC) [Ratio] 58.5 fl High 35.1-43.9 [facility] Hematocrit Auto (Bld) [Volum e fraction]Ordered By: Anurag Irene on 01-20-2025 Hematocrit (Bld) [Volume fraction] 22.9 % Low 40-54 [facility] Hemoglobin measurementOrdere d By: Anurag Irene on 01-20-2025 Hemoglobin (Bld) [Mass/Vol] 7.7 g/dL Low 13.0-16.5 [facility] Immature granulocytes/100 WB C Auto (Bld)Ordered By: Anurag Irene on 01-20-2025 Immature granulocytes/100 WBC (Bld) 1.200 % High 0.0-0.9 [facility] MCV (mean corpuscular volume ) determinationOrdered By: Anurag Irene on 01-20-2025 MCV (RBC) [Entitic vol] 88.1 fL 80-94 [facility] Mean corpuscular hemoglobin (MCH) determinationOrdered By: Anurag Irene on 01-20-2025 MCH (RBC) [Entitic mass] 29.6 pg 27.0-32.0 [facility] Monocyte percentageOrdered B y: Anurag Irene on 01-20-2025 Monocytes/100 WBC (Bld) 11.9 % High 0-10 [facility] Neutrophil percentageOrdered By: Anurag Irene on 01-20-2025 Neutrophils/100 WBC (Bld) 63.5 % 47-70 [facility] Platelet countOrdered By: Francois Irene on 01-20-2025 Platelets (Bld) [#/Vol] 93 10*3/uL Low 150-450 [facility] Platelet estimateOrdered By: Anurag Irene on 01-20-2025 Platelets LM Ql (Bld) MOD DEC ADEQ [facility] RBC Auto (Bld) [#/Vol]Ordere d By: Anurag Irene on 01-20-2025 RBC (Bld) [#/Vol] 2.60 10*6/uL Low 4.6-6.2 [facility] White blood cell (WBC) count Ordered By: Anurag Irene on 01-20-2025 WBC (Bld) [#/Vol] 6.8 10*3/uL 4.4-11.0 [facility] Activated partial thrombopla stin time (aPTT) in platelet poor plasma by coagulation aOrdered By: Rosendo Renee on 01-19-2025 aPTT Coag (PPP) [Time] 46.6 s High 24.1-36.2 [facility] Albumin, Serumon 01-19-2025 Albumin [Mass/Vol] 2.2 g/dL Low 3.5-5.0 [facility] Comment on above: Performed By: #### L 501.2300, L300.4310, L300.3900, L501.5200, L501.1800 ####[facility] [address] [place], [address] Bedside Glucoseon 01-19-2025 FINGERSTICK GLU 225 mg/dL High 74-106 [facility] Comment on above: Result Comment: BRISA GEMENT OF PATIENT CARE PER NURSING PROTOCOL Performed By: #### L 501.080 ####[facility] [address] [place], [address] FINGERSTICK GLU 268 mg/dL High 74-106 [facility] Comment on above: Result Comment: BRISA GEMENT OF PATIENT CARE PER NURSING PROTOCOL Performed By: #### L 501.080 ####[facility] [address] [place], [address] FINGERSTICK GLU 187 mg/dL High 74-106 [facility] Comment on above: Result Comment: BRISA GEMENT OF PATIENT CARE PER NURSING PROTOCOL Performed By: #### L 501.080 ####[facility] [address] [place], [address] FINGERSTICK GLU 198 mg/dL High 74-106 [facility] Comment on above: Result Comment: BRISA MOROCHO OF PATIENT CARE PER NURSING PROTOCOL Performed By: #### L 501.080 ####[facility] [address] [place], [address] Bilirubin directOrdered By: Anurag Irene on 01-19-2025 Bilirubin.direct [Mass/Vol] 1.00 mg/dL High 0.00-0.30 [facility] Bilirubin, Directon 01-20-20 25 Bilirubin.direct [Mass/Vol] 1.00 mg/dL High 0.00-0.30 [facility] Comment on above: Performed By: #### L 501.4700, L100.0100, L500.4050 ####[facility] [address] [place], [address] Body Fluid Culton 01-19-2025 BFC Culture exhibits no growth. Normal [facility] Comment on above: Performed By: #### L 200.0200, L350.1000, M100.2900, M100.4001, M100.2000 ####[facility] [address] [place], [address] CBC W/Diff, Automatedon 01-02 Absolute Lymph 1.08 X10 3/uL Normal 0.83-4.51 [facility] Comment on above: Performed By: #### L 501.4700, L100.0100, L500.4050 ####[facility] [address] [place], [address] Absolute Neut 5.4 X10 3/uL Normal 2.0-7.7 [facility] Comment on above: Performed By: #### L 501.4700, L100.0100, L500.4050 ####[facility] [address] [place], [address] Basophils/100 WBC (Bld) 0.5 % Normal 0-1 [facility] Comment on above: Performed By: #### L 501.4700, L100.0100, L500.4050 ####[facility] [address] [place], [address] Eosinophils/100 WBC (Bld) 5.8 % High 0-5 [facility] Comment on above: Performed By: #### L 501.4700, L100.0100, L500.4050 ####[facility] [address] [place], [address] Erythrocyte distribution width (RBC) [Ratio] 18.6 % High 11.6-14.6 [facility] Comment on above: Performed By: #### L 501.4700, L100.0100, L500.4050 ####[facility] [address] [place], [address] Hematocrit (Bld) [Volume fraction] 22.3 % Low 40-54 [facility] Comment on above: Performed By: #### L 501.4700, L100.0100, L500.4050 ####[facility] [address] [place], [address] Hemoglobin (Bld) [Mass/Vol] 7.6 g/dL Low 13.0-16.5 [facility] Comment on above: Performed By: #### L 501.4700, L100.0100, L500.4050 ####[facility] [address] [place], [address] IG% 1.400 High 0.0-0.9 [facility] Comment on above: Result Comment: IG% - Immature Granulocytes (promyelocytes, myelocytes andmetamyelocytes) > 1% indicates that a LEFT SHIFT is Present. Performed By: #### L 501.4700, L100.0100, L500.4050 ####[facility] [address] [place], [address] Lymphocytes/100 WBC (Bld) 13.6 % Low 19-41 [facility] Comment on above: Performed By: #### L 501.4700, L100.0100, L500.4050 ####[facility] [address] [place], [address] MCH (RBC) [Entitic mass] 30.3 pg Normal 27.0-32.0 [facility] Comment on above: Performed By: #### L 501.4700, L100.0100, L500.4050 ####[facility] [address] [place], [address] MCHC (RBC) [Mass/Vol] 34.1 g/dL Normal 32-36 [facility] Comment on above: Performed By: #### L 501.4700, L100.0100, L500.4050 ####[facility] [address] [place], [address] MCV (RBC) [Entitic vol] 88.8 fL Normal 80-94 [facility] Comment on above: Performed By: #### L 501.4700, L100.0100, L500.4050 ####[facility] [address] [place], [address] Monocytes/100 WBC (Bld) 11.0 % High 0-10 [facility] Comment on above: Performed By: #### L 501.4700, L100.0100, L500.4050 ####[facility] [address] [place], [address] Neutrophils/100 WBC (Bld) 67.7 % Normal 47-70 [facility] Comment on above: Performed By: #### L 501.4700, L100.0100, L500.4050 ####[facility] [address] [place], [address] Nucleated RBC (Bld) [#/Vol] 0 10*3/uL Normal 0-5 [facility] Comment on above: Performed By: #### L 501.4700, L100.0100, L500.4050 ####[facility] [address] [place], [address] Platelet mean volume (Bld) [Entitic vol] 11.1 fL Normal 6.2-12.0 [facility] Comment on above: Performed By: #### L 501.4700, L100.0100, L500.4050 ####[facility] [address] [place], [address] Platelets (Bld) [#/Vol] 107 10*3/uL Low 150-450 [facility] Comment on above: Performed By: #### L 501.4700, L100.0100, L500.4050 ####[facility] [address] [place], [address] RBC (Bld) [#/Vol] 2.51 10*6/uL Low 4.6-6.2 [facility] Comment on above: Performed By: #### L 501.4700, L100.0100, L500.4050 ####[facility] [address] [place], [address] RDW SD 59.0 fl High 35.1-43.9 [facility] Comment on above: Performed By: #### L 501.4700, L100.0100, L500.4050 ####[facility] [address] [place], [address] WBC (Bld) [#/Vol] 7.9 10*3/uL Normal 4.4-11.0 [facility] Comment on above: Performed By: #### L 501.4700, L100.0100, L500.4050 ####[facility] [address] [place], [address] Comprehensive Metabolic Prof lexis 01-19-2025 Albumin [Mass/Vol] 2.2 g/dL Low 3.5-5.0 [facility] Comment on above: Performed By: #### L 501.4700, L100.0100, L500.4050 ####[facility] [address] [place], [address] Albumin/Globulin [Mass ratio] 0.9 {ratio} Normal 0.9-2.4 [facility] Comment on above: Performed By: #### L 501.4700, L100.0100, L500.4050 ####[facility] [address] [place], [address] ALK PHOS 225 U/L High 40-129 [facility] Comment on above: Performed By: #### L 501.4700, L100.0100, L500.4050 ####[facility] [address] [place], [address] ALT [Catalytic activity/Vol] 34 U/L Normal <=46 [facility] Comment on above: Performed By: #### L 501.4700, L100.0100, L500.4050 ####[facility] [address] [place], [address] AST [Catalytic activity/Vol] 52 U/L High <=37 [facility] Comment on above: Performed By: #### L 501.4700, L100.0100, L500.4050 ####[facility] [address] [place], [address] Bilirubin [Mass/Vol] 1.70 mg/dL High 0.00-1.30 [facility] Comment on above: Performed By: #### L 501.4700, L100.0100, L500.4050 ####[facility] [address] [place], [address] BUN/CRE 10.4 RATIO Normal 10-20 [facility] Comment on above: Performed By: #### L 501.4700, L100.0100, L500.4050 ####[facility] [address] [place], [address] Calcium [Mass/Vol] 7.9 mg/dL Normal 7.6-11.0 [facility] Comment on above: Performed By: #### L 501.4700, L100.0100, L500.4050 ####[facility] [address] [place], [address] Chloride [Moles/Vol] 94 mmol/L Low 98-108 [facility] Comment on above: Performed By: #### L 501.4700, L100.0100, L500.4050 ####[facility] [address] [place], [address] CO2 [Moles/Vol] 30.7 mmol/L Normal 21.0-32.0 [facility] Comment on above: Performed By: #### L 501.4700, L100.0100, L500.4050 ####[facility] [address] [place], [address] Creatinine [Mass/Vol] 1.05 mg/dL Normal 0.70-1.20 [facility] Comment on above: Performed By: #### L 501.4700, L100.0100, L500.4050 ####[facility] [address] [place], [address] ECRCL 93.35 ml/min Normal 50-250 [facility] Comment on above: Performed By: #### L 501.4700, L100.0100, L500.4050 ####[facility] [address] [place], [address] GAP 7 Normal 5-15 [facility] Comment on above: Performed By: #### L 501.4700, L100.0100, L500.4050 ####[facility] [address] [place], [address] GFR/1.73 sq M.predicted among non-blacks MDRD (S/P/Bld) [Vol rate/Area] 82 mL/min/{1.73_m2} Normal >60 [facility] Comment on above: Result Comment: mL/m in/1.73m2 CKD-EPI Creatinine Equation (2020) Performed By: #### L 501.4700, L100.0100, L500.4050 ####[facility] [address] [place], [address] Globulin (S) [Mass/Vol] 2.6 g/dL Normal 2.2-4.2 [facility] Comment on above: Performed By: #### L 501.4700, L100.0100, L500.4050 ####[facility] [address] [place], [address] Glucose [Mass/Vol] 220 mg/dL High 70-99 [facility] Comment on above: Performed By: #### L 501.4700, L100.0100, L500.4050 ####[facility] [address] [place], [address] Potassium [Moles/Vol] 3.0 mmol/L Low 3.3-5.1 [facility] Comment on above: Performed By: #### L 501.4700, L100.0100, L500.4050 ####[facility] [address] [place], [address] Sodium [Moles/Vol] 132 mmol/L Low 133-145 [facility] Comment on above: Performed By: #### L 501.4700, L100.0100, L500.4050 ####[facility] [address] [place], [address] T PROT 4.8 g/dL Low 5.9-8.4 [facility] Comment on above: Performed By: #### L 501.4700, L100.0100, L500.4050 ####[facility] [address] [place], [address] Urea nitrogen [Mass/Vol] 11 mg/dL Normal 4-19 [facility] Comment on above: Performed By: #### L 501.4700, L100.0100, L500.4050 ####[facility] [address] [place], [address] Gram Stainon 01-19-2025 GS Centrifuged Specimen ? Culture performed on centrifuged specimen Gram Stain No organisms seen No cells seen Normal [facility] Comment on above: Performed By: #### L 200.0200, L350.1000, M100.2900, M100.4001, M100.2000 ####[facility] [address] [place], [address] Liver Profileon 01-19-2025 ALB Normal 3.5-5.0 [facility] Comment on above: Result Comment: MOVE D TO DIFFERENT REQ- SEE C50 Performed By: #### L 500.3400 ####[facility] [address] [place], [address] ALK PHOS Normal 40-129 [facility] Comment on above: Result Comment: MOVE D TO DIFFERENT REQ- SEE C50 Performed By: #### L 500.3400 ####[facility] [address] [place], [address] ALT Normal <=46 [facility] Comment on above: Result Comment: MOVE D TO DIFFERENT REQ- SEE C50 Performed By: #### L 500.3400 ####[facility] [address] [place], [address] AST Normal <=37 [facility] Comment on above: Result Comment: MOVE D TO DIFFERENT REQ- SEE C50 Performed By: #### L 500.3400 ####[facility] [address] [place], [address] D BILI Normal 0.00-0.30 [facility] Comment on above: Result Comment: MOVE D TO DIFFERENT REQ- SEE C50 Performed By: #### L 500.3400 ####[facility] [address] [place], [address] T BILI Normal 0.00-1.30 [facility] Comment on above: Result Comment: MOVE D TO DIFFERENT REQ- SEE C50 Performed By: #### L 500.3400 ####[facility] [address] [place], [address] T PROT Normal 5.9-8.4 [facility] Comment on above: Result Comment: MOVE D TO DIFFERENT REQ- SEE C50 Performed By: #### L 500.3400 ####[facility] [address] [place], [address] Magnesiumon 01-19-2025 Magnesium [Mass/Vol] 1.7 mg/dL Normal 1.5-2.2 [facility] Comment on above: Performed By: #### L 501.2300, L300.4310, L300.3900, L501.5200, L501.1800 ####[facility] [address] [place], [address] Magnesium measurement (mass/ volume)Ordered By: Rosendo Renee on 01-19-2025 Magnesium (Unsp spec) [Mass/Vol] 1.7 mg/dL 1.5-2.2 [facility] Partial Thromboplast Timeon 01-19-2025 aPTT Coag (Bld) [Time] 46.6 s High 24.1-36.2 [facility] Comment on above: Performed By: #### L 501.2300, L300.4310, L300.3900, L501.5200, L501.1800 ####[facility] [address] [place], [address] Phosphoruson 01-19-2025 Phosphate [Mass/Vol] 3.5 mg/dL Normal 2.7-4.5 [facility] Comment on above: Performed By: #### L 501.2300, L300.4310, L300.3900, L501.5200, L501.1800 ####[facility] [address] [place], [address] Prothrombin Time w/INRon INR Coag (PPP) [Relative time] 2.0 {INR} Normal [facility] Comment on above: Performed By: #### L 501.2300, L300.4310, L300.3900, L501.5200, L501.1800 ####[facility] [address] [place], [address] PT Coag (PPP) [Time] 22.8 s High 11.7-14.9 [facility] Comment on above: Performed By: #### L 501.2300, L300.4310, L300.3900, L501.5200, L501.1800 ####[facility] [address] [place], [address] Prothrombin timeOrdered By: Rosendo Renee on 01-19-2025 PT Coag (PPP) [Time] 22.8 s High 11.7-14.9 [facility] Abdomen Limitedon 01-18-2025 Abdomen Limited Normal [facility] Anaerobic cultureOrdered By: Anurag Irene on 01-18-2025 Bacteria identified Anaer cx Nom (Unsp spec) No growth in 5 days. [facility] Basic Metabolic Profile (BMP )on 01-18-2025 BUN/CRE 9.8 RATIO Low 10-20 [facility] Comment on above: Performed By: #### L 500.2500 ####[facility] [address] [place], [address] Calcium [Mass/Vol] 7.7 mg/dL Normal 7.6-11.0 [facility] Comment on above: Performed By: #### L 500.2500 ####[facility] [address] [place], [address] Chloride [Moles/Vol] 92 mmol/L Low 98-108 [facility] Comment on above: Performed By: #### L 500.2500 ####[facility] [address] [place], [address] CO2 [Moles/Vol] 31.5 mmol/L Normal 21.0-32.0 [facility] Comment on above: Performed By: #### L 500.2500 ####[facility] [address] [place], [address] Creatinine [Mass/Vol] 0.85 mg/dL Normal 0.70-1.20 [facility] Comment on above: Performed By: #### L 500.2500 ####[facility] [address] [place], [address] ECRCL 116.49 ml/min Normal 50-250 [facility] Comment on above: Performed By: #### L 500.2500 ####[facility] [address] [place], [address] GAP 8 Normal 5-15 [facility] Comment on above: Performed By: #### L 500.2500 ####[facility] [address] [place], [address] GFR/1.73 sq M.predicted among non-blacks MDRD (S/P/Bld) [Vol rate/Area] 101 mL/min/{1.73_m2} Normal >60 [facility] Comment on above: Result Comment: mL/m in/1.73m2 CKD-EPI Creatinine Equation (2020) Performed By: #### L 500.2500 ####[facility] [address] [place], [address] Glucose [Mass/Vol] 228 mg/dL High 70-99 [facility] Comment on above: Performed By: #### L 500.2500 ####[facility] [address] [place], [address] Potassium [Moles/Vol] 2.8 mmol/L Low 3.3-5.1 [facility] Comment on above: Performed By: #### L 500.2500 ####[facility] [address] [place], [address] Sodium [Moles/Vol] 132 mmol/L Low 133-145 [facility] Comment on above: Performed By: #### L 500.2500 ####[facility] [address] [place], [address] Urea nitrogen [Mass/Vol] 8 mg/dL Normal 4-19 [facility] Comment on above: Performed By: #### L 500.2500 ####[facility] [address] [place], [address] Bedside Glucoseon 01-18-2025 FINGERSTICK GLU 250 mg/dL High 74-106 [facility] Comment on above: Result Comment: BRISA GEMENT OF PATIENT CARE PER NURSING PROTOCOL Performed By: #### L 501.080 ####[facility] [address] [place], [address] FINGERSTICK GLU 158 mg/dL High 74-106 [facility] Comment on above: Result Comment: BRISA GEMENT OF PATIENT CARE PER NURSING PROTOCOL Performed By: #### L 501.080 ####[facility] [address] [place], [address] FINGERSTICK GLU 142 mg/dL High 74-106 [facility] Comment on above: Result Comment: BRISA GEMENT OF PATIENT CARE PER NURSING PROTOCOL Performed By: #### L 501.080 ####[facility] [address] [place], [place], [address] FINGERSTICK GLU 171 mg/dL High 74-106 [facility] Comment on above: Result Comment: BRISA GEMENT OF PATIENT CARE PER NURSING PROTOCOL Performed By: #### L 501.080 ####[facility] [address] [place], [place], [address] Body fluid appearance (nomin al result)Ordered By: Anurag Irene on 01-18-2025 Appearance (Body fld) CLEAR [facility] Body fluid color determinati onOrdered By: Anurag Irene on 01-18-2025 Color (Body fld) LT YEL [facility] Body fluid cultureOrdered By : Anurag Irene on 01-18-2025 Microbial culture, body fluid Culture exhibits no growth. [facility] Body fluid leukocytes count (number/volume)Ordered By: Anurag Irene on 01-18-2025 WBC (Body fld) [#/Vol] 0.143 10*3/uL [facility] Body fluid lymphocytes/100 l eukocytesOrdered By: Anurag Irene on 01-18-2025 Lymphocytes/100 WBC (Body fld) 24 % [facility] Body fluid macrophage countO rdered By: Anurag Irene on 01-18-2025 Macrophages (Body fld) [#/Vol] 46 % [facility] Body fluid mesothelial cell percentageOrdered By: Anurag Irene on 01-18-2025 Mesothelial cells/100 WBC (Body fld) 7 % [facility] Body fluid mononuclear cell percentageOrdered By: Anurag Irene on 01-18-2025 Mononuclear cells/100 WBC (Body fld) 75.6 % [facility] Body fluid other cell count as percentage of leukocytesOrdered By: Anurag Irene on 01-18-2025 Other cells/100 WBC (Body fld) 7 % [facility] Other cells/100 WBC (Body fld) [employer] [facility] Body fluid protein measureme nt (mass/volume)Ordered By: Anurag Irene on 01-18-2025 Protein (Body fld) [Mass/Vol] 0.3 g/dL Not Establ. [facility] Body fluid segmented neutrop hils count (number/volume)Ordered By: Anurag Irene on 01-18-2025 Segmented neutrophils (Body fld) [#/Vol] 20 % [facility] Body fluid total cell countO rdered By: Anurag Irene on 01-18-2025 Cells Counted Total (Body fld) [#] 0.172 10^3/ul [facility] CBC W/Diff, Automatedon 01-02 Absolute Lymph 1.13 X10 3/uL Normal 0.83-4.51 [facility] Comment on above: Performed By: #### L 100.0100 ####[facility] [address] [place], [address] Absolute Neut 5.5 X10 3/uL Normal 2.0-7.7 [facility] Comment on above: Performed By: #### L 100.0100 ####[facility] [address] [place], [address] Basophils/100 WBC (Bld) 0.6 % Normal 0-1 [facility] Comment on above: Performed By: #### L 100.0100 ####[facility] [address] [place], [address] Eosinophils/100 WBC (Bld) 6.1 % High 0-5 [facility] Comment on above: Performed By: #### L 100.0100 ####[facility] [address] [place], [address] Erythrocyte distribution width (RBC) [Ratio] 18.7 % High 11.6-14.6 [facility] Comment on above: Performed By: #### L 100.0100 ####[facility] [address] [place], [address] Hematocrit (Bld) [Volume fraction] 22.6 % Low 40-54 [facility] Comment on above: Performed By: #### L 100.0100 ####[facility] [address] [place], [address] Hemoglobin (Bld) [Mass/Vol] 7.7 g/dL Low 13.0-16.5 [facility] Comment on above: Performed By: #### L 100.0100 ####[facility] [address] [place], [address] IG% 1.200 High 0.0-0.9 [facility] Comment on above: Result Comment: IG% - Immature Granulocytes (promyelocytes, myelocytes andmetamyelocytes) > 1% indicates that a LEFT SHIFT is Present. Performed By: #### L 100.0100 ####[facility] [address] [place], [address] Lymphocytes/100 WBC (Bld) 14.0 % Low 19-41 [facility] Comment on above: Performed By: #### L 100.0100 ####[facility] [address] [place], [address] MCH (RBC) [Entitic mass] 30.1 pg Normal 27.0-32.0 [facility] Comment on above: Performed By: #### L 100.0100 ####[facility] [address] [place], [address] MCHC (RBC) [Mass/Vol] 34.1 g/dL Normal 32-36 [facility] Comment on above: Performed By: #### L 100.0100 ####[facility] [address] [place], [address] MCV (RBC) [Entitic vol] 88.3 fL Normal 80-94 [facility] Comment on above: Performed By: #### L 100.0100 ####[facility] [address] [place], [address] Monocytes/100 WBC (Bld) 10.0 % Normal 0-10 [facility] Comment on above: Performed By: #### L 100.0100 ####[facility] [address] [place], [address] Neutrophils/100 WBC (Bld) 68.1 % Normal 47-70 [facility] Comment on above: Performed By: #### L 100.0100 ####[facility] [address] [place], [address] Nucleated RBC (Bld) [#/Vol] 0 10*3/uL Normal 0-5 [facility] Comment on above: Performed By: #### L 100.0100 ####[facility] [address] [place], [address] Platelet mean volume (Bld) [Entitic vol] 10.5 fL Normal 6.2-12.0 [facility] Comment on above: Performed By: #### L 100.0100 ####[facility] [address] [place], [address] Platelets (Bld) [#/Vol] 107 10*3/uL Low 150-450 [facility] Comment on above: Performed By: #### L 100.0100 ####[facility] [address] [place], [address] RBC (Bld) [#/Vol] 2.56 10*6/uL Low 4.6-6.2 [facility] Comment on above: Performed By: #### L 100.0100 ####[facility] [address] [place], [address] RDW SD 58.9 fl High 35.1-43.9 [facility] Comment on above: Performed By: #### L 100.0100 ####[facility] [address] [place], [address] WBC (Bld) [#/Vol] 8.1 10*3/uL Normal 4.4-11.0 [facility] Comment on above: Performed By: #### L 100.0100 ####[facility] [address] [place], [address] Cytology report of Body flui d Cyto stainOrdered By: Anurag Irene on 01-18-2025 Cytology report Cyto stain Doc (Body fld) SEE PATHOLOGY REPORT [facility] Cytology, Body Fluid / CSFon 01-18-2025 CYTOLOGY,BF/CSF SEE PATHOLOGY REPORT Normal [facility] Comment on above: Result Comment: Spec imen submitted to Anatomical Pathology Department fortesting. Performed By: #### L 200.0200, L350.1000, M100.2900, M100.4001, M100.2000 ####[facility] [address] [place], [address] Glucose, Body Fluidon 2024 GLUC, BODY FLD 154 mg/dL Normal Not Establ. [facility] Comment on above: Performed By: #### L 503.0100, L503.0300 ####[facility] [address] [place], [address] Gram stainOrdered By: Anuradha Irene on 01-18-2025 Microscopic observation Gram stain Nom (Unsp spec) [facility] Magnesiumon 01-18-2025 Magnesium [Mass/Vol] 1.6 mg/dL Normal 1.5-2.2 [facility] Comment on above: Performed By: #### L 501.2300, L501.5200 ####[facility] [address] [place], [address] Monocyte detectionOrdered By : Anurag Irene on 01-18-2025 Monocytes/100 WBC (Bld) 3 % [facility] No Panel InformationOrdered By: Anurag Irene on 01-18-2025 218 /mm3 [facility] SEE COMMENT [facility] Paracentesis with USon 01-18 Paracentesis with US Normal [facility] Pathologist interpretation o f Body fluid testsOrdered By: Anurag Irene on 01-18-2025 Pathologist interpretation (Body fld) [Interp] Reviewed [facility] Phosphoruson 01-18-2025 Phosphate [Mass/Vol] 3.7 mg/dL Normal 2.7-4.5 [facility] Comment on above: Performed By: #### L 501.2300, L501.5200 ####[facility] [address] [place], [address] Protein, Body Fluidon 2024 Protein [Mass/Vol] 0.3 g/dL Normal Not Establ. [facility] Comment on above: Performed By: #### L 503.0100, L503.0300 ####[facility] [address] [place], [address] Prothrombin Time w/INRon INR Coag (PPP) [Relative time] 2.0 {INR} Normal [facility] Comment on above: Performed By: #### L 300.3900 ####[facility] [address] [place], [address] PT Coag (PPP) [Time] 22.9 s High 11.7-14.9 [facility] Comment on above: Performed By: #### L 300.3900 ####[facility] [address] [place], [address] Special Stain Group IIon Special Stain Group II Normal [facility] Comment on above: Performed By: #### P SSII ####[facility] [address] [place], [address] Specimen source identificati on of body fluidOrdered By: Anurag Irene on 01-18-2025 Specimen source Nom (Body fld) PERITONEAL FLUID [facility] Stool Occult Blood iFOBon STOB Negative Normal [facility] Comment on above: Performed By: #### M 100.7900 ####[facility] [address] [place], [address] Stool gastrointestinal hemog lobin detection by immunologic methodOrdered By: Cielo Tovar on 01-18-2025 Lower GI hemoglobin IA Ql (Stl) [facility] Bedside Glucoseon 01-17-2025 FINGERSTICK GLU 180 mg/dL High [facility]106 [facility] Comment on above: Result Comment: BRISA GEMENT OF PATIENT CARE PER NURSING PROTOCOL Performed By: #### L 501.080 ####[facility] [address] [place], [address] FINGERSTICK GLU 236 mg/dL High -106 [facility] Comment on above: Result Comment: BRISA GEMENT OF PATIENT CARE PER NURSING PROTOCOL Performed By: #### L 501.080 ####[facility] [address] [place], [address] FINGERSTICK GLU 141 mg/dL High [address] [place] [address] Comment on above: Result Comment: BRISA GEMENT OF PATIENT CARE PER NURSING PROTOCOL Performed By: #### L 501.080 ####[facility] [address] [place], [address] FINGERSTICK GLU 173 mg/dL High [address] [place] [address] Comment on above: Result Comment: BRISA GEMENT OF PATIENT CARE PER NURSING PROTOCOL Performed By: #### L 501.080 ####[facility] [address] [place], [address] CBC W/Diff, Automatedon - Absolute Lymph 1.09 X10 3/uL Normal 0.83-4.51 [facility] Comment on above: Performed By: #### L 100.0100 ####[facility] [address] [place], [address] Absolute Neut 5.7 X10 3/uL Normal 2.0-7.7 [facility] Comment on above: Performed By: #### L 100.0100 ####[facility] [address] [place], [address] Basophils/100 WBC (Bld) 0.5 % Normal 0-1 [facility] Comment on above: Performed By: #### L 100.0100 ####[facility] [address] [place], [address] Eosinophils/100 WBC (Bld) 6.8 % High 0-5 [facility] Comment on above: Performed By: #### L 100.0100 ####[facility] [address] [place], [address] Erythrocyte distribution width (RBC) [Ratio] 18.8 % High 11.6-14.6 [facility] Comment on above: Performed By: #### L 100.0100 ####[facility] [address] [place], [address] Hematocrit (Bld) [Volume fraction] 22.2 % Low 40-54 [facility] Comment on above: Performed By: #### L 100.0100 ####[facility] [address] [place], [address] Hemoglobin (Bld) [Mass/Vol] 7.5 g/dL Low 13.0-16.5 [facility] Comment on above: Performed By: #### L 100.0100 ####[facility] [address] [place], [address] IG% 1.100 High 0.0-0.9 [facility] Comment on above: Result Comment: IG% - Immature Granulocytes (promyelocytes, myelocytes andmetamyelocytes) > 1% indicates that a LEFT SHIFT is Present. Performed By: #### L 100.0100 ####[facility] [address] [place], [address] Lymphocytes/100 WBC (Bld) 12.9 % Low 19-41 [facility] Comment on above: Performed By: #### L 100.0100 ####[facility] [address] [place], [address] MCH (RBC) [Entitic mass] 30.0 pg Normal 27.0-32.0 [facility] Comment on above: Performed By: #### L 100.0100 ####[facility] [address] [place], [address] MCHC (RBC) [Mass/Vol] 33.8 g/dL Normal 32-36 [facility] Comment on above: Performed By: #### L 100.0100 ####[facility] [address] [place], [address] MCV (RBC) [Entitic vol] 88.8 fL Normal 80-94 [facility] Comment on above: Performed By: #### L 100.0100 ####[facility] [address] [place], [address] Monocytes/100 WBC (Bld) 11.5 % High 0-10 [facility] Comment on above: Performed By: #### L 100.0100 ####[facility] [address] [place], [address] Neutrophils/100 WBC (Bld) 67.2 % Normal 47-70 [facility] Comment on above: Performed By: #### L 100.0100 ####[facility] [address] [place], [address] Nucleated RBC (Bld) [#/Vol] 0 10*3/uL Normal 0-5 [facility] Comment on above: Performed By: #### L 100.0100 ####[facility] [address] [place], [address] Platelet mean volume (Bld) [Entitic vol] 10.7 fL Normal 6.2-12.0 [facility] Comment on above: Performed By: #### L 100.0100 ####[facility] [address] [place], [address] Platelets (Bld) [#/Vol] 109 10*3/uL Low 150-450 [facility] Comment on above: Performed By: #### L 100.0100 ####[facility] [address] [place], [address] RBC (Bld) [#/Vol] 2.50 10*6/uL Low 4.6-6.2 [facility] Comment on above: Performed By: #### L 100.0100 ####[facility] [address] [place], [address] RDW SD 58.8 fl High 35.1-43.9 [facility] Comment on above: Performed By: #### L 100.0100 ####[facility] [address] [place], [address] WBC (Bld) [#/Vol] 8.4 10*3/uL Normal 4.4-11.0 [facility] Comment on above: Performed By: #### L 100.0100 ####[facility] [address] [place], [address] Bedside Glucoseon 01-16-2025 FINGERSTICK GLU 227 mg/dL High 74-106 [facility] Comment on above: Result Comment: BRISA GEMENT OF PATIENT CARE PER NURSING PROTOCOL Performed By: #### L 501.080 ####[facility] [address] [place], [address] FINGERSTICK GLU 202 mg/dL High 74-106 [facility] Comment on above: Result Comment: BRISA GEMENT OF PATIENT CARE PER NURSING PROTOCOL Performed By: #### L 501.080 ####[facility] [address] [place], [address] FINGERSTICK GLU 177 mg/dL High 74-106 [facility] Comment on above: Result Comment: BRISA GEMENT OF PATIENT CARE PER NURSING PROTOCOL Performed By: #### L 501.080 ####[facility] [address] [place], [address] FINGERSTICK GLU 173 mg/dL High 74-106 [facility] Comment on above: Result Comment: BRISA GEMENT OF PATIENT CARE PER NURSING PROTOCOL Performed By: #### L 501.080 ####[facility] [address] [place], [address] CBC W/Diff, Automatedon 01-02-2024 Absolute Lymph 1.16 X10 3/uL Normal 0.83-4.51 [facility] Comment on above: Performed By: #### L 100.0100 ####[facility] [address] [place], [address] Absolute Neut 5.2 X10 3/uL Normal 2.0-7.7 [facility] Comment on above: Performed By: #### L 100.0100 ####[facility] [address] [place], [address] Basophils/100 WBC (Bld) 0.4 % Normal 0-1 [facility] Comment on above: Performed By: #### L 100.0100 ####[facility] [address] [place], [address] Eosinophils/100 WBC (Bld) 6.5 % High 0-5 [facility] Comment on above: Performed By: #### L 100.0100 ####[facility] [address] [place], [address] Erythrocyte distribution width (RBC) [Ratio] 18.5 % High 11.6-14.6 [facility] Comment on above: Performed By: #### L 100.0100 ####[facility] [address] [place], [address] Hematocrit (Bld) [Volume fraction] 22.8 % Low 40-54 [facility] Comment on above: Performed By: #### L 100.0100 ####[facility] [address] [place], [address] Hemoglobin (Bld) [Mass/Vol] 7.8 g/dL Low 13.0-16.5 [facility] Comment on above: Performed By: #### L 100.0100 ####[facility] [address] [place], [address] IG% 0.900 Normal 0.0-0.9 [facility] Comment on above: Result Comment: IG% - Immature Granulocytes (promyelocytes, myelocytes andmetamyelocytes) > 1% indicates that a LEFT SHIFT is Present. Performed By: #### L 100.0100 ####[facility] [address] [place], [address] Lymphocytes/100 WBC (Bld) 14.6 % Low 19-41 [facility] Comment on above: Performed By: #### L 100.0100 ####[facility] [address] [place], [address] MCH (RBC) [Entitic mass] 30.2 pg Normal 27.0-32.0 [facility] Comment on above: Performed By: #### L 100.0100 ####[facility] [address] [place], [address] MCHC (RBC) [Mass/Vol] 34.2 g/dL Normal 32-36 [facility] Comment on above: Performed By: #### L 100.0100 ####[facility] [address] [place], [address] MCV (RBC) [Entitic vol] 88.4 fL Normal 80-94 [facility] Comment on above: Performed By: #### L 100.0100 ####[facility] [address] [place], [address] Monocytes/100 WBC (Bld) 12.7 % High 0-10 [facility] Comment on above: Performed By: #### L 100.0100 ####[facility] [address] [place], [address] Neutrophils/100 WBC (Bld) 64.9 % Normal 47-70 [facility] Comment on above: Performed By: #### L 100.0100 ####[facility] [address] [place], [address] Nucleated RBC (Bld) [#/Vol] 0 10*3/uL Normal 0-5 [facility] Comment on above: Performed By: #### L 100.0100 ####[facility] [address] [place], [address] Platelet mean volume (Bld) [Entitic vol] 10.8 fL Normal 6.2-12.0 [facility] Comment on above: Performed By: #### L 100.0100 ####[facility] [address] [place], [address] Platelets (Bld) [#/Vol] 111 10*3/uL Low 150-450 [facility] Comment on above: Performed By: #### L 100.0100 ####[facility] [address] [place], [address] RBC (Bld) [#/Vol] 2.58 10*6/uL Low 4.6-6.2 [facility] Comment on above: Performed By: #### L 100.0100 ####[facility] [address] [place], [address] RDW SD 57.9 fl High 35.1-43.9 [facility] Comment on above: Performed By: #### L 100.0100 ####[facility] [address] [place], [address] WBC (Bld) [#/Vol] 7.9 10*3/uL Normal 4.4-11.0 [facility] Comment on above: Performed By: #### L 100.0100 ####[facility] [address] [place], [address] Comprehensive Metabolic Prof ilon 01-16-2025 Albumin [Mass/Vol] 2.2 g/dL Low 3.5-5.0 [facility] Comment on above: Performed By: #### L 500.4050 ####[facility] [address] [place], [address] Albumin/Globulin [Mass ratio] 0.9 {ratio} Normal 0.9-2.4 [facility] Comment on above: Performed By: #### L 500.4050 ####[facility] [address] [place], [address] ALK PHOS 247 U/L High 40-129 [facility] Comment on above: Performed By: #### L 500.4050 ####[facility] [address] [place], [address] ALT [Catalytic activity/Vol] 49 U/L High <=46 [facility] Comment on above: Performed By: #### L 500.4050 ####[facility] [address] [place], [address] AST [Catalytic activity/Vol] 51 U/L High <=37 [facility] Comment on above: Performed By: #### L 500.4050 ####[facility] [address] [place], [address] Bilirubin [Mass/Vol] 1.89 mg/dL High 0.00-1.30 [facility] Comment on above: Performed By: #### L 500.4050 ####[facility] [address] [place], [address] BUN/CRE 7.1 RATIO Low 10-20 [facility] Comment on above: Performed By: #### L 500.4050 ####[facility] [address] [place], [address] Calcium [Mass/Vol] 7.8 mg/dL Normal 7.6-11.0 [facility] Comment on above: Performed By: #### L 500.4050 ####[facility] [address] [place], [address] Chloride [Moles/Vol] 93 mmol/L Low 98-108 [facility] Comment on above: Performed By: #### L 500.4050 ####[facility] [address] [place], [address] CO2 [Moles/Vol] 31.1 mmol/L Normal 21.0-32.0 [facility] Comment on above: Performed By: #### L 500.4050 ####[facility] [address] [place], [address] Creatinine [Mass/Vol] 0.80 mg/dL Normal 0.70-1.20 [facility] Comment on above: Performed By: #### L 500.4050 ####[facility] [address] [place], [address] ECRCL 118.59 ml/min Normal 50-250 [facility] Comment on above: Performed By: #### L 500.4050 ####[facility] [address] [place], [address] GAP 7 Normal 5-15 [facility] Comment on above: Performed By: #### L 500.4050 ####[facility] [address] [place], [address] GFR/1.73 sq M.predicted among non-blacks MDRD (S/P/Bld) [Vol rate/Area] 103 mL/min/{1.73_m2} Normal >60 [facility] Comment on above: Result Comment: mL/m in/1.73m2 CKD-EPI Creatinine Equation (2020) Performed By: #### L 500.4050 ####[facility] [address] [place], [address] Globulin (S) [Mass/Vol] 2.5 g/dL Normal 2.2-4.2 [facility] Comment on above: Performed By: #### L 500.4050 ####[facility] [address] [place], [address] Glucose [Mass/Vol] 174 mg/dL High 70-99 [facility] Comment on above: Performed By: #### L 500.4050 ####[facility] [address] [place], [address] Potassium [Moles/Vol] 3.3 mmol/L Normal 3.3-5.1 [facility] Comment on above: Performed By: #### L 500.4050 ####[facility] [address] [place], [address] Sodium [Moles/Vol] 132 mmol/L Low 133-145 [facility] Comment on above: Performed By: #### L 500.4050 ####[facility] [address] [place], [address] T PROT 4.8 g/dL Low 5.9-8.4 [facility] Comment on above: Performed By: #### L 500.4050 ####[facility] [address] [place], [address] Urea nitrogen [Mass/Vol] 6 mg/dL Normal 4-19 [facility] Comment on above: Performed By: #### L 500.4050 ####[facility] [address] [place], [address] Serum or plasma vancomycin m easurement (mass/volume)Ordered By: Cielo Tovar on 01-16-2025 Vancomycin [Mass/Vol] 7.7 ug/mL 0.0-15.0 [facility] Vancomycin, Random Levelon 0 01-16-2025 VANCO, RANDOM 7.7 ug/mL Normal 0.0-15.0 [facility] Comment on above: Result Comment: VANC OMYCIN STANDARD DRUG THERAPY: CRITICAL VALUE IS > 15.0 mg/LVANCOMYCIN HIGH INTENSITY THERAPY: CRITICAL VALUE IS > 20.0 mg/LPLEASE CONTACT PHARMACY SERVICES (#1990) FOR INTERPRETATIONOF RESULTS. THIS RESULT DOES NOT REPRESENT A PEAK OR TROUGHLEVEL FOR THIS DRUG. Performed By: #### L 501.8850 ####[facility] [address] [place], [address] Bedside Glucoseon 01-15-2025 FINGERSTICK GLU 237 mg/dL High [address] [place] [address] Comment on above: Result Comment: BRISA GEMENT OF PATIENT CARE PER NURSING PROTOCOL Performed By: #### L 501.080 ####[facility] [address] [place], [address] FINGERSTICK GLU 240 mg/dL High [address] [place] [address] Comment on above: Result Comment: BRISA GEMENT OF PATIENT CARE PER NURSING PROTOCOL Performed By: #### L 501.080 ####[facility] [address] [place], [address] FINGERSTICK GLU 221 mg/dL High [address] [place] [address] Comment on above: Result Comment: BRISA GEMENT OF PATIENT CARE PER NURSING PROTOCOL Performed By: #### L 501.080 ####[facility] [address] [place], [address] FINGERSTICK GLU 167 mg/dL High [facility]106 [facility] Comment on above: Result Comment: BRISA GEMENT OF PATIENT CARE PER NURSING PROTOCOL Performed By: #### L 501.080 ####[facility] [address] [place], [address] FINGERSTICK GLU 173 mg/dL High 74-106 [facility] Comment on above: Result Comment: BRISA RENTERIAGUNJAN OF PATIENT CARE PER NURSING PROTOCOL Performed By: #### L 501.080 ####[facility] [address] [place], [address] CBC W/Diff, Automatedon - Absolute Lymph 1.06 X10 3/uL Normal 0.83-4.51 [facility] Comment on above: Performed By: #### L 100.0100, L500.4050 ####[facility] [address] [place], [address] Absolute Neut 5.3 X10 3/uL Normal 2.0-7.7 [facility] Comment on above: Performed By: #### L 100.0100, L500.4050 ####[facility] [address] [place], [address] Basophils/100 WBC (Bld) 0.5 % Normal 0-1 [facility] Comment on above: Performed By: #### L 100.0100, L500.4050 ####[facility] [address] [place], [address] Eosinophils/100 WBC (Bld) 6.1 % High 0-5 [facility] Comment on above: Performed By: #### L 100.0100, L500.4050 ####[facility] [address] [place], [address] Erythrocyte distribution width (RBC) [Ratio] 18.6 % High 11.6-14.6 [facility] Comment on above: Performed By: #### L 100.0100, L500.4050 ####[facility] [address] [place], [address] Hematocrit (Bld) [Volume fraction] 23.2 % Low 40-54 [facility] Comment on above: Performed By: #### L 100.0100, L500.4050 ####[facility] [address] [place], [address] Hemoglobin (Bld) [Mass/Vol] 7.9 g/dL Low 13.0-16.5 [facility] Comment on above: Performed By: #### L 100.0100, L500.4050 ####[facility] [address] [place], [address] IG% 1.000 High 0.0-0.9 [facility] Comment on above: Result Comment: IG% - Immature Granulocytes (promyelocytes, myelocytes andmetamyelocytes) > 1% indicates that a LEFT SHIFT is Present. Performed By: #### L 100.0100, L500.4050 ####[facility] [address] [place], [address] Lymphocytes/100 WBC (Bld) 13.2 % Low 19-41 [facility] Comment on above: Performed By: #### L 100.0100, L500.4050 ####[facility] [address] [place], [address] MCH (RBC) [Entitic mass] 29.8 pg Normal 27.0-32.0 [facility] Comment on above: Performed By: #### L 100.0100, L500.4050 ####[facility] [address] [place], [address] MCHC (RBC) [Mass/Vol] 34.1 g/dL Normal 32-36 [facility] Comment on above: Performed By: #### L 100.0100, L500.4050 ####[facility] [address] [place], [address] MCV (RBC) [Entitic vol] 87.5 fL Normal 80-94 [facility] Comment on above: Performed By: #### L 100.0100, L500.4050 ####[facility] [address] [place], [address] Monocytes/100 WBC (Bld) 13.6 % High 0-10 [facility] Comment on above: Performed By: #### L 100.0100, L500.4050 ####[facility] [address] [place], [address] Neutrophils/100 WBC (Bld) 65.6 % Normal 47-70 [facility] Comment on above: Performed By: #### L 100.0100, L500.4050 ####[facility] [address] [place], [address] Nucleated RBC (Bld) [#/Vol] 0 10*3/uL Normal 0-5 [facility] Comment on above: Performed By: #### L 100.0100, L500.4050 ####[facility] [address] [place], [address] Platelet mean volume (Bld) [Entitic vol] 11.0 fL Normal 6.2-12.0 [facility] Comment on above: Performed By: #### L 100.0100, L500.4050 ####[facility] [address] [place], [address] Platelets (Bld) [#/Vol] 118 10*3/uL Low 150-450 [facility] Comment on above: Performed By: #### L 100.0100, L500.4050 ####[facility] [address] [place], [address] RBC (Bld) [#/Vol] 2.65 10*6/uL Low 4.6-6.2 [facility] Comment on above: Performed By: #### L 100.0100, L500.4050 ####[facility] [address] [place], [address] RDW SD 58.1 fl High 35.1-43.9 [facility] Comment on above: Performed By: #### L 100.0100, L500.4050 ####[facility] [address] [place], [address] WBC (Bld) [#/Vol] 8.0 10*3/uL Normal 4.4-11.0 [facility] Comment on above: Performed By: #### L 100.0100, L500.4050 ####[facility] [address] [place], [address] Comprehensive Metabolic Prof [facility] 01-15-2025 Albumin/Globulin [Mass ratio] 0.8 {ratio} Low 0.9-2.4 [facility] Comment on above: Performed By: #### L 100.0100, L500.4050 ####[facility] [address] [place], [address] ALK PHOS 275 U/L High 40-129 [facility] Comment on above: Performed By: #### L 100.0100, L500.4050 ####[facility] [address] [place], [address] ALT [Catalytic activity/Vol] 56 U/L High <=46 [facility] Comment on above: Performed By: #### L 100.0100, L500.4050 ####[facility] [address] [place], [address] AST [Catalytic activity/Vol] 64 U/L High <=37 [facility] Comment on above: Performed By: #### L 100.0100, L500.4050 ####[facility] [address] [place], [address] Bilirubin [Mass/Vol] 2.06 mg/dL High 0.00-1.30 [facility] Comment on above: Performed By: #### L 100.0100, L500.4050 ####[facility] [address] [place], [address] Calcium [Mass/Vol] 7.8 mg/dL Normal 7.6-11.0 [facility] Comment on above: Performed By: #### L 100.0100, L500.4050 ####[facility] [address] [place], [address] Chloride [Moles/Vol] 94 mmol/L Low 98-108 [facility] Comment on above: Performed By: #### L 100.0100, L500.4050 ####[facility] [address] [place], [address] CO2 [Moles/Vol] 26.7 mmol/L Normal 21.0-32.0 [facility] Comment on above: Performed By: #### L 100.0100, L500.4050 ####[facility] [address] [place], [address] GAP 9 Normal 5-15 [facility] Comment on above: Performed By: #### L 100.0100, L500.4050 ####[facility] [address] [place], [address] Potassium [Moles/Vol] 3.2 mmol/L Low 3.3-5.1 [facility] Comment on above: Performed By: #### L 100.0100, L500.4050 ####[facility] [address] [place], [address] Sodium [Moles/Vol] 130 mmol/L Low 133-145 [facility] Comment on above: Performed By: #### L 100.0100, L500.4050 ####[facility] [address] [place], [address] Albumin [Mass/Vol] 2.2 g/dL Low 3.5-5.0 [facility] Comment on above: Performed By: #### L 100.0100, L500.4050 ####[facility] [address] [place], [address] BUN/CRE 6.0 RATIO Low 10-20 [facility] Comment on above: Performed By: #### L 100.0100, L500.4050 ####[facility] [address] [place], [address] Creatinine [Mass/Vol] 0.82 mg/dL Normal 0.70-1.20 [facility] Comment on above: Performed By: #### L 100.0100, L500.4050 ####[facility] [address] [place], [address] ECRCL 115.58 ml/min Normal 50-250 [facility] Comment on above: Performed By: #### L 100.0100, L500.4050 ####[facility] [address] [place], [address] GFR/1.73 sq M.predicted among non-blacks MDRD (S/P/Bld) [Vol rate/Area] 102 mL/min/{1.73_m2} Normal >60 [facility] Comment on above: Result Comment: mL/m in/1.73m2 CKD-EPI Creatinine Equation (2020) Performed By: #### L 100.0100, L500.4050 ####[facility] [address] [place], [address] Globulin (S) [Mass/Vol] 2.7 g/dL Normal 2.2-4.2 [facility] Comment on above: Performed By: #### L 100.0100, L500.4050 ####[facility] [address] [place], [address] Glucose [Mass/Vol] 178 mg/dL High 70-99 [facility] Comment on above: Performed By: #### L 100.0100, L500.4050 ####[facility] [address] [place], [address] T PROT 4.9 g/dL Low 5.9-8.4 [facility] Comment on above: Performed By: #### L 100.0100, L500.4050 ####[facility] [address] [place], [address] Urea nitrogen [Mass/Vol] 5 mg/dL Normal 4-19 [facility] Comment on above: Performed By: #### L 100.0100, L500.4050 ####[facility] [address] [place], [address] Vancomycin, Random Levelon 0 01-15-2025 VANCO, RANDOM 20.7 ug/mL High 0.0-15.0 [facility] Comment on above: Result Comment: VANC OMYCIN STANDARD DRUG THERAPY: CRITICAL VALUE IS > 15.0 mg/LVANCOMYCIN HIGH INTENSITY THERAPY: CRITICAL VALUE IS > 20.0 mg/LPLEASE CONTACT PHARMACY SERVICES (#2971) FOR INTERPRETATIONOF RESULTS. THIS RESULT DOES NOT REPRESENT A PEAK OR TROUGHLEVEL FOR THIS DRUG. Performed By: #### L 501.8850 ####[facility] [address] [place], [address] Bedside Glucoseon 01-14-2025 FINGERSTICK GLU 194 mg/dL High 74-106 [facility] Comment on above: Result Comment: BRISA GEMENT OF PATIENT CARE PER NURSING PROTOCOL Performed By: #### L 501.080 ####[facility] [address] [place], [address] FINGERSTICK GLU 261 mg/dL High 74-106 [facility] Comment on above: Result Comment: BRISA GEMENT OF PATIENT CARE PER NURSING PROTOCOL Performed By: #### L 501.080 ####[facility] [address] [place], [address] FINGERSTICK GLU 263 mg/dL High 74-106 [facility] Comment on above: Result Comment: BRISA MOROCHO OF PATIENT CARE PER NURSING PROTOCOL Performed By: #### L 501.080 ####[facility] [address] [place], [address] CBC W/Diff, Automatedon 06-1 -2024 Absolute Lymph 1.09 X10 3/uL Normal 0.83-4.51 [facility] Comment on above: Performed By: #### L 100.0100, L500.4050 ####[facility] [address] [place], [address] Absolute Neut 5.3 X10 3/uL Normal 2.0-7.7 [facility] Comment on above: Performed By: #### L 100.0100, L500.4050 ####[facility] [address] [place], [address] Basophils/100 WBC (Bld) 0.4 % Normal 0-1 [facility] Comment on above: Performed By: #### L 100.0100, L500.4050 ####[facility] [address] [place], [address] Eosinophils/100 WBC (Bld) 5.5 % High 0-5 [facility] Comment on above: Performed By: #### L 100.0100, L500.4050 ####[facility] [address] [place], [address] Erythrocyte distribution width (RBC) [Ratio] 18.5 % High 11.6-14.6 [facility] Comment on above: Performed By: #### L 100.0100, L500.4050 ####[facility] [address] [place], [address] Hematocrit (Bld) [Volume fraction] 23.2 % Low 40-54 [facility] Comment on above: Performed By: #### L 100.0100, L500.4050 ####[facility] [address] [place], [address] Hemoglobin (Bld) [Mass/Vol] 7.8 g/dL Low 13.0-16.5 [facility] Comment on above: Performed By: #### L 100.0100, L500.4050 ####[facility] [address] [place], [address] IG% 1.000 High 0.0-0.9 [facility] Comment on above: Result Comment: IG% - Immature Granulocytes (promyelocytes, myelocytes andmetamyelocytes) > 1% indicates that a LEFT SHIFT is Present. Performed By: #### L 100.0100, L500.4050 ####[facility] [address] [place], [address] Lymphocytes/100 WBC (Bld) 13.5 % Low 19-41 [facility] Comment on above: Performed By: #### L 100.0100, L500.4050 ####[facility] [address] [place], [address] MCH (RBC) [Entitic mass] 29.5 pg Normal 27.0-32.0 [facility] Comment on above: Performed By: #### L 100.0100, L500.4050 ####[facility] [address] [place], [address] MCHC (RBC) [Mass/Vol] 33.6 g/dL Normal 32-36 [facility] Comment on above: Performed By: #### L 100.0100, L500.4050 ####[facility] [address] [place], [address] MCV (RBC) [Entitic vol] 87.9 fL Normal 80-94 [facility] Comment on above: Performed By: #### L 100.0100, L500.4050 ####[facility] [address] [place], [address] Monocytes/100 WBC (Bld) 14.3 % High 0-10 [facility] Comment on above: Performed By: #### L 100.0100, L500.4050 ####[facility] [address] [place], [address] Neutrophils/100 WBC (Bld) 65.3 % Normal 47-70 [facility] Comment on above: Performed By: #### L 100.0100, L500.4050 ####[facility] [address] [place], [address] Nucleated RBC (Bld) [#/Vol] 0 10*3/uL Normal 0-5 [facility] Comment on above: Performed By: #### L 100.0100, L500.4050 ####[facility] [address] [place], [address] Platelet mean volume (Bld) [Entitic vol] 11.8 fL Normal 6.2-12.0 [facility] Comment on above: Performed By: #### L 100.0100, L500.4050 ####[facility] [address] [place], [address] Platelets (Bld) [#/Vol] 121 10*3/uL Low 150-450 [facility] Comment on above: Performed By: #### L 100.0100, L500.4050 ####[facility] [address] [place], [address] RBC (Bld) [#/Vol] 2.64 10*6/uL Low 4.6-6.2 [facility] Comment on above: Performed By: #### L 100.0100, L500.4050 ####[facility] [address] [place], [address] RDW SD 58.4 fl High 35.1-43.9 [facility] Comment on above: Performed By: #### L 100.0100, L500.4050 ####[facility] [address] [place], [address] WBC (Bld) [#/Vol] 8.1 10*3/uL Normal 4.4-11.0 [facility] Comment on above: Performed By: #### L 100.0100, L500.4050 ####[facility] [address] [place], [address] Chest without Contraston Chest without Contrast Normal [facility] Comprehensive Metabolic Prof ilon 01-14-2025 Albumin [Mass/Vol] 2.4 g/dL Low 3.5-5.0 [facility] Comment on above: Performed By: #### L 100.0100, L500.4050 ####[facility] [address] [place], [address] Albumin/Globulin [Mass ratio] 0.9 {ratio} Normal 0.9-2.4 [facility] Comment on above: Performed By: #### L 100.0100, L500.4050 ####[facility] [address] [place], [address] ALK PHOS 293 U/L High 40-129 [facility] Comment on above: Performed By: #### L 100.0100, L500.4050 ####[facility] [address] [place], [address] ALT [Catalytic activity/Vol] 61 U/L High <=46 [facility] Comment on above: Performed By: #### L 100.0100, L500.4050 ####[facility] [address] [place], [address] AST [Catalytic activity/Vol] 83 U/L High <=37 [facility] Comment on above: Performed By: #### L 100.0100, L500.4050 ####[facility] [address] [place], [address] Bilirubin [Mass/Vol] 2.64 mg/dL High 0.00-1.30 [facility] Comment on above: Performed By: #### L 100.0100, L500.4050 ####[facility] [address] [place], [address] BUN/CRE 6.4 RATIO Low 10-20 [facility] Comment on above: Performed By: #### L 100.0100, L500.4050 ####[facility] [address] [place], [address] Calcium [Mass/Vol] 7.9 mg/dL Normal 7.6-11.0 [facility] Comment on above: Performed By: #### L 100.0100, L500.4050 ####[facility] [address] [place], [address] Chloride [Moles/Vol] 95 mmol/L Low 98-108 [facility] Comment on above: Performed By: #### L 100.0100, L500.4050 ####[facility] [address] [place], [address] CO2 [Moles/Vol] 25.1 mmol/L Normal 21.0-32.0 [facility] Comment on above: Performed By: #### L 100.0100, L500.4050 ####[facility] [address] [place], [address] Creatinine [Mass/Vol] 0.86 mg/dL Normal 0.70-1.20 [facility] Comment on above: Performed By: #### L 100.0100, L500.4050 ####[facility] [address] [place], [address] ECRCL 110.10 ml/min Normal 50-250 [facility] Comment on above: Performed By: #### L 100.0100, L500.4050 ####[facility] [address] [place], [address] GAP 11 Normal 5-15 [facility] Comment on above: Performed By: #### L 100.0100, L500.4050 ####[facility] [address] [place], [address] GFR/1.73 sq M.predicted among non-blacks MDRD (S/P/Bld) [Vol rate/Area] 100 mL/min/{1.73_m2} Normal >60 [facility] Comment on above: Result Comment: mL/m in/1.73m2 CKD-EPI Creatinine Equation (2020) Performed By: #### L 100.0100, L500.4050 ####[facility] [address] [place], [address] Globulin (S) [Mass/Vol] 2.5 g/dL Normal 2.2-4.2 [facility] Comment on above: Performed By: #### L 100.0100, L500.4050 ####[facility] [address] [place], [address] Glucose [Mass/Vol] 280 mg/dL High 70-99 [facility] Comment on above: Performed By: #### L 100.0100, L500.4050 ####[facility] [address] [place], [address] Potassium [Moles/Vol] 3.0 mmol/L Low 3.3-5.1 [facility] Comment on above: Performed By: #### L 100.0100, L500.4050 ####[facility] [address] [place], [address] Sodium [Moles/Vol] 131 mmol/L Low 133-145 [facility] Comment on above: Performed By: #### L 100.0100, L500.4050 ####[facility] [address] [place], [address] T PROT 4.9 g/dL Low 5.9-8.4 [facility] Comment on above: Performed By: #### L 100.0100, L500.4050 ####[facility] [address] [place], [address] Urea nitrogen [Mass/Vol] 6 mg/dL Normal 4-19 [facility] Comment on above: Performed By: #### L 100.0100, L500.4050 ####[facility] [address] [place], [address] Culture, Blood (WB)on 2024 CUB Blood cultures x2, f rom two different sites No growth in 5 days. Normal [facility] Comment on above: Performed By: #### M 200.1000 ####[facility] [address] [place], [address] Magnetic resonance imaging r eportOrdered By: Kenneth Barton on 01-14-2025 Study report [facility] Work Phone: PSA,Total- Diagnosticon 01-02 PSA, DIAGNOSTIC 0.65 ng/mL Normal 0.00-4.00 [facility] Comment on above: Result Comment: This test was performed using the [employer] tPSAmethod. Measured values of a patient??sample can varydepending on the testing procedure used. PSA valuesdetermined on patient samples by different testingprocedures cannot be used interchangeably. If there is achange in PSA assays while monitoring therapy, sequentialtesting should be performed to confirm baseline values. Performed By: #### L 903.7458 ####[facility] [address] [place], [place], [address] Trough vancomycin levelOrder ed By: Cielo Tovar on 01-14-2025 Vancomycin trough [Mass/Vol] 21.4 ug/mL High 5.0-15.0 [facility] Vancomycin, Trough Levelon 0 01-14-2025 VANCO, TROUGH 21.4 ug/mL High 5.0-15.0 [facility] Comment on above: Order Comment: 1830 [...] therapy recommended for serious lifethreatening infections include:- Noywtmxjhc-Nchddlhlfwyv-Ykupycnxy (Ventilator/Healtcare Associated)-SepsisPLEASE CONTACT PHARMACY SERVICES (#1916) FOR INTERPRETATIONOF RESULTS. Performed By: #### L 501.8820 ####[facility] [address] [place], [place], [address] BRCon 01-13-2025 RC Normal [facility] Comment on above: Result Comment: [id number] ON RC TRANSFUSED 01/13/25 1613 Performed By: #### B , BTS ####[facility] [address] [place], [place], [address] Bedside Glucoseon 01-13-2025 FINGERSTICK GLU 272 mg/dL High 74-106 [facility] Comment on above: Result Comment: BRISA GEMENT OF PATIENT CARE PER NURSING PROTOCOL Performed By: #### L 501.080 ####[facility] [address] [place], [address] FINGERSTICK GLU 268 mg/dL High 74-106 [facility] Comment on above: Result Comment: BRISA GEMENT OF PATIENT CARE PER NURSING PROTOCOL Performed By: #### L 501.080 ####[facility] [address] [place], [address] FINGERSTICK GLU 249 mg/dL High 74-106 [facility] Comment on above: Result Comment: BRISA GEMENT OF PATIENT CARE PER NURSING PROTOCOL Performed By: #### L 501.080 ####[facility] [address] [place], [address] FINGERSTICK GLU 201 mg/dL High 74-106 [facility] Comment on above: Result Comment: BRISA GEMENT OF PATIENT CARE PER NURSING PROTOCOL Performed By: #### L 501.080 ####[facility] [address] [place], [address] CBC W/Diff, Automatedon - Basophils/100 WBC (Bld) 0.3 % Normal 0-1 [facility] Comment on above: Performed By: #### L 100.0100, L500.4050 ####[facility] [address] [place], [address] Eosinophils/100 WBC (Bld) 5.2 % High 0-5 [facility] Comment on above: Performed By: #### L 100.0100, L500.4050 ####[facility] [address] [place], [address] Comprehensive Metabolic Prof ilon 01-13-2025 Albumin [Mass/Vol] 2.3 g/dL Low 3.5-5.0 [facility] Comment on above: Performed By: #### L 100.0100, L500.4050 ####[facility] [address] [place], [address] Albumin/Globulin [Mass ratio] 0.9 {ratio} Normal 0.9-2.4 [facility] Comment on above: Performed By: #### L 100.0100, L500.4050 ####[facility] [address] [place], [address] ALK PHOS 306 U/L High 40-129 [facility] Comment on above: Performed By: #### L 100.0100, L500.4050 ####[facility] [address] [place], [address] ALT [Catalytic activity/Vol] 72 U/L High <=46 [facility] Comment on above: Performed By: #### L 100.0100, L500.4050 ####[facility] [address] [place], [address] AST [Catalytic activity/Vol] 107 U/L High <=37 [facility] Comment on above: Performed By: #### L 100.0100, L500.4050 ####[facility] [address] [place], [address] Bilirubin [Mass/Vol] 1.69 mg/dL High 0.00-1.30 [facility] Comment on above: Performed By: #### L 100.0100, L500.4050 ####[facility] [address] [place], [address] BUN/CRE 7.3 RATIO Low 10-20 [facility] Comment on above: Performed By: #### L 100.0100, L500.4050 ####[facility] [address] [place], [address] Calcium [Mass/Vol] 7.7 mg/dL Normal 7.6-11.0 [facility] Comment on above: Performed By: #### L 100.0100, L500.4050 ####[facility] [address] [place], [address] Chloride [Moles/Vol] 96 mmol/L Low 98-108 [facility] Comment on above: Performed By: #### L 100.0100, L500.4050 ####[facility] [address] [place], [address] CO2 [Moles/Vol] 25.5 mmol/L Normal 21.0-32.0 [facility] Comment on above: Performed By: #### L 100.0100, L500.4050 ####[facility] [address] [place], [address] Creatinine [Mass/Vol] 0.90 mg/dL Normal 0.70-1.20 [facility] Comment on above: Performed By: #### L 100.0100, L500.4050 ####[facility] [address] [place], [address] ECRCL 103.13 ml/min Normal 50-250 [facility] Comment on above: Performed By: #### L 100.0100, L500.4050 ####[facility] [address] [place], [address] GAP 10 Normal 5-15 [facility] Comment on above: Performed By: #### L 100.0100, L500.4050 ####[facility] [address] [place], [address] GFR/1.73 sq M.predicted among non-blacks MDRD (S/P/Bld) [Vol rate/Area] 99 mL/min/{1.73_m2} Normal >60 [facility] Comment on above: Result Comment: mL/m in/1.73m2 CKD-EPI Creatinine Equation (2020) Performed By: #### L 100.0100, L500.4050 ####[facility] [address] [place], [address] Globulin (S) [Mass/Vol] 2.6 g/dL Normal 2.2-4.2 [facility] Comment on above: Performed By: #### L 100.0100, L500.4050 ####[facility] [address] [place], [address] Glucose [Mass/Vol] 187 mg/dL High 70-99 [facility] Comment on above: Performed By: #### L 100.0100, L500.4050 ####[facility] [address] [place], [address] Potassium [Moles/Vol] 3.1 mmol/L Low 3.3-5.1 [facility] Comment on above: Performed By: #### L 100.0100, L500.4050 ####[facility] [address] [place], [address] Sodium [Moles/Vol] 132 mmol/L Low 133-145 [facility] Comment on above: Performed By: #### L 100.0100, L500.4050 ####[facility] [address] [place], [address] T PROT 4.9 g/dL Low 5.9-8.4 [facility] Comment on above: Performed By: #### L 100.0100, L500.4050 ####[facility] [address] [place], [address] Urea nitrogen [Mass/Vol] 7 mg/dL Normal 4-19 [facility] Comment on above: Performed By: #### L 100.0100, L500.4050 ####[facility] [address] [place], [address] Ferritinon 01-13-2025 Ferritin [Mass/Vol] 76 ng/mL Normal 37-417 [facility] Comment on above: Performed By: #### L 503.6550, L503.6030 ####[facility] [address] [place], [address] Iron measurement (mass/mass) Ordered By: Cielo Tovar on 01-13-2025 Iron (Unsp spec) [Mass/Mass] 110 ug/dL 65-175 [facility] Iron+Iron Binding Capacityon 01-13-2025 TIBC 211 ug/dL Low 250-450 [facility] Comment on above: Performed By: #### L 503.6550, L503.6030 ####[facility] [address] [place], [place], [address] Magnetic resonance imaging r eportOrdered By: Jerry Osorio on 01-13-2025 Study report [facility] No Panel InformationOrdered By: Cielo Tovar on 01-13-2025 101 ug/dL Low 228-428 [facility] Serum or plasma ferritin wei surement (mass/volume)Ordered By: Cielo Tovar on 01-13-2025 Ferritin [Mass/Vol] 76 ng/mL 37-417 [facility] Serum or plasma iron saturat ion measurement (mass fraction)Ordered By: Cielo Tovar on 01-13-2025 Iron saturation [Mass fraction] 52.1 % 9-55 [facility] Spine Lumbar (Routine)on Spine Lumbar (Routine) Normal [facility] Spine Thoracic (Routine)on 0 01-13-2025 Spine Thoracic (Routine) Normal [facility] Type AND Screenon 01-13-2025 ABO and Rh group Nom (Bld) Blood group O Rh(D) positive Normal [facility] Comment on above: Order Comment: CMV N EG? NNumber of units to transfuse: 1Reason for Ordering Blood: AcuteAre the blood/blood products to be transfused? YIs the patient having/had surgery? NNWhen ReadyNYA Performed By: #### B RC, BTS ####[facility] [address] [place], [place], [address] Vancomycin, Trough Levelon 0 01-13-2025 VANCO, TROUGH 19.8 ug/mL High 5.0-15.0 [facility] Comment on above: Order Comment: Comme nts: Trough to be drawn 30 mins prior to scheduled [id number] Result Comment: Eleazar mmended goal trough ranges [...] therapy recommended for serious lifethreatening infections include:- Vzoxlskjqp-Pafbfyxzjckn-Waokqqmxb (Ventilator/Healtcare Associated)-SepsisPLEASE CONTACT PHARMACY SERVICES (#8022) FOR INTERPRETATIONOF RESULTS. Performed By: #### L 501.8820 ####[facility] [address] [place], [address] Absolute lymphocyte countOrd ered By: Breann Mendez on 01-09-2025 Lymphocytes Auto (Unsp spec) [#/Vol] 0.95 10*3/uL 0.83-4.51 [facility] Anion gap in Serum or Plasma Ordered By: Breann Mendez on 01-09-2025 Anion gap [Moles/Vol] 13 mmol/L 5-15 [facility] Automated lymphocyte count a s percentage of total leukocytesOrdered By: Breann Mendez on 01-09-2025 Lymphocytes/100 WBC Auto (Unsp spec) 7.2 % Low 19-41 [facility] BUN/creatinine ratioOrdered By: Breann Mendez on 01-09-2025 Urea nitrogen/Creatinine [Mass ratio] 13.4 mg/mg 10-20 [facility] Basophil percentageOrdered B y: Breann Mendez on 01-09-2025 Basophils/100 WBC (Bld) 0.4 % 0-1 [facility] Bilirubin Test strip Ql (U)O rdered By: Breann Mendez on 01-09-2025 Bilirubin Ql (U) 1 mg/dL High Negative [facility] Bilirubin, totalOrdered By: Breann Mendez on 01-09-2025 Bilirubin [Mass/Vol] 1.15 mg/dL 0.00-1.30 [facility] Blood cultureOrdered By: Ramona Mendez on 01-09-2025 Bacteria identified Cx Nom (Bld) No growth in 5 days. [facility] Bacteria identified Cx Nom (Bld) No growth in 5 days. [facility] CO2 (BldV) [Moles/Vol]Ordere d By: Yaritza Leo on 01-09-2025 CO2 [Moles/Vol] 15 mmol/L Low 23-33 [facility] Carbon dioxide, total [Moles /volume] in Central venous bloodOrdered By: Breann Mendez on 01-09-2025 CO2 [Moles/Vol] 13.6 mmol/L Low 21.0-32.0 [facility] Chloride assayOrdered By: Josselyn Mendez on 01-09-2025 Chloride [Moles/Vol] 103 mmol/L 98-108 [facility] Eosinophil percentageOrdered By: Breann Mendez on 01-09-2025 Eosinophils/100 WBC (Bld) 4.2 % 0-5 [facility] Erythrocyte distribution wid th ratioOrdered By: Breann Mendez on 01-09-2025 Erythrocyte distribution width (RBC) [Ratio] 18.1 % High 11.6-14.6 [facility] Erythrocyte distribution wid th standard deviationOrdered By: Breann Mendez on 01-09-2025 Erythrocyte distribution width (RBC) [Ratio] 57.5 fl High 35.1-43.9 [facility] Glomerular filtration rate ( GFR) estimation/1.73 sq m using serum, plasma, or whole bOrdered By: Breann Mendez on 01-09-2025 GFR/1.73 sq M.predicted among non-blacks MDRD (S/P/Bld) [Vol rate/Area] 44 mL/min/{1.73_m2} Low >60 [facility] Hematocrit Auto (Bld) [Volum e fraction]Ordered By: Breann Mendez on 01-09-2025 Hematocrit (Bld) [Volume fraction] 24.3 % Low 40-54 [facility] Hemoglobin measurementOrdere d By: Breann Mendez on 01-09-2025 Hemoglobin (Bld) [Mass/Vol] 7.9 g/dL Low 13.0-16.5 [facility] Immature granulocytes/100 WB C Auto (Bld)Ordered By: Breann Mendez on 01-09-2025 Immature granulocytes/100 WBC (Bld) 0.900 % 0.0-0.9 [facility] Ketones Test strip Ql (U)Ord ered By: Breann Mendez on 01-09-2025 Ketones Ql (U) 5 mg/dl High Negative [facility] MCV (mean corpuscular volume ) determinationOrdered By: Breann Mendez on 01-09-2025 MCV (RBC) [Entitic vol] 90.3 fL 80-94 [facility] Mean corpuscular hemoglobin (MCH) determinationOrdered By: Breann Menedz on 01-09-2025 MCH (RBC) [Entitic mass] 29.4 pg 27.0-32.0 [facility] Monocyte percentageOrdered B y: Breann Mendez on 01-09-2025 Monocytes/100 WBC (Bld) 6.7 % 0-10 [facility] Mucus LM Ql (Urine sed)Order ed By: Breann Mendez on 01-09-2025 Mucus Ql (Urine sed) 0 SEEN /hpf [facility] Neutrophil percentageOrdered By: Breann Mendez on 01-09-2025 Neutrophils/100 WBC (Bld) 80.6 % High 47-70 [facility] Nitrite Test strip Ql (U)Ord ered By: Breann Mendez on 01-09-2025 Nitrite Ql (U) Negative Negative [facility] No Panel InformationOrdered By: Yaritza Leo on 01-09-2025 TRAMAINE [facility] Not entered [facility] No Panel InformationOrdered By: Breann Mendez on 01-09-2025 68 U/L High <38 [facility] Platelet countOrdered By: Josselyn Mendez on 01-09-2025 Platelets (Bld) [#/Vol] 114 10*3/uL Low 150-450 [facility] Potassium measurement (mass/ volume)Ordered By: Breann Mendez on 01-09-2025 Potassium (Unsp spec) [Mass/Vol] 3.6 mmol/L 3.3-5.1 [facility] Protein Test strip Ql (U)Ord ered By: Breann Mendez on 01-09-2025 Protein Ql (U) 500 mg/dl High Negative [facility] RBC Auto (Bld) [#/Vol]Ordere d By: Breann Mendez on 01-09-2025 RBC (Bld) [#/Vol] 2.69 10*6/uL Low 4.6-6.2 [facility] Serum creatinine measurement (mass/volume)Ordered By: Breann Mendez on 01-09-2025 Creatinine [Mass/Vol] 1.77 mg/dL High 0.70-1.20 [facility] Serum globulin measurementOr dered By: Breann Mendez on 01-09-2025 Globulin (S) [Mass/Vol] 2.9 g/dL 2.2-4.2 [facility] Serum glucose measurement (m ass/volume)Ordered By: Breann Mendez on 01-09-2025 Glucose [Mass/Vol] 149 mg/dL High 70-99 [facility] Serum or plasma alanine thomas otransferase (ALT) measurementOrdered By: Breann Mendez on 01-09-2025 ALT [Catalytic activity/Vol] 42 U/L <47 [facility] Serum or plasma albumin roosevelt urement (mass/volume)Ordered By: Breann Mendez on 01-09-2025 Albumin [Mass/Vol] 2.4 g/dL Low 3.5-5.0 [facility] Serum or plasma albumin/glob ulin mass ratioOrdered By: Breann Mendez on 01-09-2025 Albumin/Globulin [Mass ratio] 0.8 {ratio} Low 0.9-2.4 [facility] Serum or plasma alkaline kendrick sphatase measurementOrdered By: Breann Mendez on 01-09-2025 ALP [Catalytic activity/Vol] 196 U/L High 40-129 [facility] Serum or plasma calcium roosevelt urement (mass/volume)Ordered By: Breann Mendez on 01-09-2025 Calcium [Mass/Vol] 8.4 mg/dL 7.6-11.0 [facility] Serum or plasma creatine kin ase activityOrdered By: Yaritza Leo on 01-09-2025 CK [Catalytic activity/Vol] 34 U/L 24-195 [facility] Serum or plasma urea nitroge n measurement (mass/volume)Ordered By: Breann Mendez on 01-09-2025 Urea nitrogen [Mass/Vol] 24 mg/dL High 4-19 [facility] Sodium levelOrdered By: Veena Mendez on 01-09-2025 Sodium [Moles/Vol] 129 mmol/L Low 133-145 [facility] Squamous epithelial cells de tection in urine sediment by light microscopyOrdered By: Remus Mendez on 01-09-2025 Epithelial cells.squamous LM Ql (Urine sed) 0-5 SEEN /hpf 0-5 [facility] Total proteinOrdered By: Rem us Ungbrandon on 01-09-2025 Protein [Mass/Vol] 5.3 g/dL Low 5.9-8.4 [facility] Urine clarityOrdered By: Rem us Ungbrandon on 01-09-2025 Clarity (U) Turbid Clear [facility] Urine color determinationOrd ered By: Remus Vanessa on 01-09-2025 Color (U) Red Yellow [facility] Urine cultureOrdered By: Rem us Vanessa on 01-09-2025 Bacteria identified Cx Nom (U) Yeast, not Mary albicans Abnormal [facility] Urine glucose detectionOrder ed By: Breann Mendez on 01-09-2025 Glucose Ql (U) Normal mg/dl Normal [facility] Urine leukocyte esterase det ection by dipstickOrdered By: Remus Mendez on 01-09-2025 Leukocyte esterase Test strip Ql (U) 500 /ul High Negative [facility] Urine pHOrdered By: Breann walkerr on 01-09-2025 pH (U) 6.0 [pH] 5.0 - 8.0 [facility] Urine sediment bacteria coun t by microscopy (number/high power field)Ordered By: Breann Mendez on 01-09-2025 Bacteria LM.HPF (Urine sed) [#/Area] 0 /[HPF] None Seen [facility] Urine specific gravity measu rementOrdered By: Remus Vanessa on 01-09-2025 Specific gravity (U) [Rel density] 1.015 1.002-1.030 [facility] Urine urobilinogen measureme ntOrdered By: Remus Vanessa on 01-09-2025 Urobilinogen Ql (U) Normal mg/dl Normal [facility] Venous blood ammonia measure mentOrdered By: Lupillo Robbins on 01-09-2025 Ammonia (P) [Moles/Vol] 61.1 umol/L High 16-60 [facility] Venous blood base excess wei surementOrdered By: Yaritza Leo on 01-09-2025 Base excess Calc (BldV) [Moles/Vol] -11 mmol/L Low -1.0-3.5 [facility] Venous blood bicarbonate wei surementOrdered By: Yaritza Leo on 01-09-2025 HCO3 (Bld) [Moles/Vol] 14 mmol/L Low 22-26 [facility] Venous blood pH measurementO rdered By: Yaritza Leo on 01-09-2025 pH (BldV) 7.36 [pH] 7.32-7.42 [facility] Venous blood partial pressur e of carbon dioxide measurementOrdered By: Yaritza Leo on 01-09-2025 CO2 (BldV) [Partial pressure] 24.7 mm[Hg] Low 41-51 [facility] Venous blood partial pressur e of oxygen measurementOrdered By: Yaritza Leo on 01-09-2025 Oxygen (BldV) [Partial pressure] 49 mm[Hg] High 25-40 [facility] White blood cell (WBC) count Ordered By: Breann Mendez on 01-09-2025 WBC (Bld) [#/Vol] 13.2 10*3/uL High 4.4-11.0 [facility] White blood cell countOrdere d By: Breann Mendez on 01-09-2025 White blood cell count 50-100 SEEN /hpf 0-5 [facility] Absolute lymphocyte countOrd ered By: Hill Acuña on 01-05-2025 Lymphocytes Auto (Unsp spec) [#/Vol] 0.94 10*3/uL 0.83-4.51 [facility] Anion gap in Serum or Plasma Ordered By: Hill Acuña on 01-05-2025 Anion gap [Moles/Vol] 9 mmol/L 5-15 [facility] Automated lymphocyte count a s percentage of total leukocytesOrdered By: Hill Acuña on 01-05-2025 Lymphocytes/100 WBC Auto (Unsp spec) 13.4 % Low 19-41 [facility] BUN/creatinine ratioOrdered By: Hill Acuña on 01-05-2025 Urea nitrogen/Creatinine [Mass ratio] 11.9 mg/mg 10-20 [facility] Basophil percentageOrdered B y: Hill Acuña on 01-05-2025 Basophils/100 WBC (Bld) 0.4 % 0-1 [facility] Carbon dioxide, total [Moles /volume] in Central venous bloodOrdered By: Hill Acuña on 01-05-2025 CO2 [Moles/Vol] 18.5 mmol/L Low 21.0-32.0 [facility] Chloride assayOrdered By: Kvng Acuña on 01-05-2025 Chloride [Moles/Vol] 101 mmol/L 98-108 [facility] Eosinophil percentageOrdered By: Hill Acuña on 01-05-2025 Eosinophils/100 WBC (Bld) 5.1 % High 0-5 [facility] Erythrocyte distribution wid th ratioOrdered By: Hill Acuña on 01-05-2025 Erythrocyte distribution width (RBC) [Ratio] 16.4 % High 11.6-14.6 [facility] Erythrocyte distribution wid th standard deviationOrdered By: Hill Acuña on 01-05-2025 Erythrocyte distribution width (RBC) [Ratio] 51.8 fl High 35.1-43.9 [facility] Glomerular filtration rate ( GFR) estimation/1.73 sq m using serum, plasma, or whole bOrdered By: Hill Acuña on 01-05-2025 GFR/1.73 sq M.predicted among non-blacks MDRD (S/P/Bld) [Vol rate/Area] 92 mL/min/{1.73_m2} >60 [facility] deOrdered By: Hill Acuña on 01-05-2025 Glucose [Mass/Vol] 163 mg/dL High 74-106 [facility] Glucose [Mass/Vol] 191 mg/dL High 74-106 [facility] Hematocrit Auto (Bld) [Volum e fraction]Ordered By: Hill Acuña on 01-05-2025 Hematocrit (Bld) [Volume fraction] 22.3 % Low 40-54 [facility] Hemoglobin measurementOrdere d By: Hill Acuña on 01-05-2025 Hemoglobin (Bld) [Mass/Vol] 7.5 g/dL Low 13.0-16.5 [facility] Immature granulocytes/100 WB C Auto (Bld)Ordered By: Hill Acuña on 01-05-2025 Immature granulocytes/100 WBC (Bld) 0.400 % 0.0-0.9 [facility] MCV (mean corpuscular volume ) determinationOrdered By: Hill Acuña on 01-05-2025 MCV (RBC) [Entitic vol] 86.4 fL 80-94 [facility] Mean corpuscular hemoglobin (MCH) determinationOrdered By: Hill Acuña on 01-05-2025 MCH (RBC) [Entitic mass] 29.1 pg 27.0-32.0 [facility] Monocyte percentageOrdered B y: Hill Acuña on 01-05-2025 Monocytes/100 WBC (Bld) 11.6 % High 0-10 [facility] Neutrophil percentageOrdered By: Hill Acuña on 01-05-2025 Neutrophils/100 WBC (Bld) 69.1 % 47-70 [facility] Platelet countOrdered By: Kvng Acuña on 01-05-2025 Platelets (Bld) [#/Vol] 81 10*3/uL Low 150-450 [facility] Potassium measurement (mass/ volume)Ordered By: Hill Acuña on 01-05-2025 Potassium (Unsp spec) [Mass/Vol] 3.6 mmol/L 3.3-5.1 [facility] RBC Auto (Bld) [#/Vol]Ordere d By: Hill Acuña on 01-05-2025 RBC (Bld) [#/Vol] 2.58 10*6/uL Low 4.6-6.2 [facility] Serum creatinine measurement (mass/volume)Ordered By: Hill Acuña on 01-05-2025 Creatinine [Mass/Vol] 0.95 mg/dL 0.70-1.20 [facility] Serum glucose measurement (m ass/volume)Ordered By: Hill Acuña on 01-05-2025 Glucose [Mass/Vol] 356 mg/dL High 70-99 [facility] Serum or plasma calcium roosevelt urement (mass/volume)Ordered By: Hill Acuña on 01-05-2025 Calcium [Mass/Vol] 7.9 mg/dL 7.6-11.0 [facility] Serum or plasma urea nitroge n measurement (mass/volume)Ordered By: Hill Acuña on 01-05-2025 Urea nitrogen [Mass/Vol] 11 mg/dL 4-19 [facility] Sodium levelOrdered By: Paulino Acuña on 01-05-2025 Sodium [Moles/Vol] 128 mmol/L Low 133-145 [facility] White blood cell (WBC) count Ordered By: Hill Acuña on 01-05-2025 WBC (Bld) [#/Vol] 7.0 10*3/uL 4.4-11.0 [facility] Bilirubin, totalOrdered By: Hill Acuña on 01-04-2025 Bilirubin [Mass/Vol] 0.90 mg/dL 0.00-1.30 [facility] Blood manual differential co mment interpretation (narrative result)Ordered By: Hill Acuña on 01-04-2025 Manual differential comment Mraco Antonio (Bld) [Interp] SCANNED [facility] Magnesium measurement (mass/ volume)Ordered By: Hill Acuña on 01-04-2025 Magnesium (Unsp spec) [Mass/Vol] 1.3 mg/dL Low 1.5-2.2 [facility] No Panel InformationOrdered By: Hill Acuña on 01-04-2025 54 U/L High <38 [facility] Serum globulin measurementOr dered By: Hill Acuña on 01-04-2025 Globulin (S) [Mass/Vol] 2.9 g/dL 2.2-4.2 [facility] Serum or plasma alanine thomas otransferase (ALT) measurementOrdered By: Hill Acuña on 01-04-2025 ALT [Catalytic activity/Vol] 26 U/L <47 [facility] Serum or plasma albumin roosevelt urement (mass/volume)Ordered By: Hill Acuña on 01-04-2025 Albumin [Mass/Vol] 2.4 g/dL Low 3.5-5.0 [facility] Serum or plasma albumin/glob ulin mass ratioOrdered By: Hill Acuña on 01-04-2025 Albumin/Globulin [Mass ratio] 0.9 {ratio} 0.9-2.4 [facility] Serum or plasma alkaline kendrick sphatase measurementOrdered By: Hill Acuña on 01-04-2025 ALP [Catalytic activity/Vol] 171 U/L High 40-129 [facility] Total proteinOrdered By: Hugo Acuña on 01-04-2025 Protein [Mass/Vol] 5.3 g/dL Low 5.9-8.4 [facility] Absolute lymphocyte countOrd ered By: Roddy Reeves on 01-02-2025 Lymphocytes Auto (Unsp spec) [#/Vol] 1.55 10*3/uL 0.83-4.51 [facility] Anion gap in Serum or Plasma Ordered By: Roddy Reeves on 01-02-2025 Anion gap [Moles/Vol] 17 mmol/L High 5-15 [facility] Automated lymphocyte count a s percentage of total leukocytesOrdered By: Roddy Reeves on 01-02-2025 Lymphocytes/100 WBC Auto (Unsp spec) 12.2 % Low 19-41 [facility] BUN/creatinine ratioOrdered By: Roddy Reeves on 01-02-2025 Urea nitrogen/Creatinine [Mass ratio] 12.9 mg/mg 10-20 [facility] Basophil percentageOrdered B y: Roddy Reeves on 01-02-2025 Basophils/100 WBC (Bld) 0.4 % 0-1 [facility] Bilirubin Test strip Ql (U)O rdered By: Roddy Reeves on 01-02-2025 Bilirubin Ql (U) Negative Negative [facility] Bilirubin, totalOrdered By: Roddy Reeves on 01-02-2025 Bilirubin [Mass/Vol] 0.90 mg/dL 0.00-1.30 [facility] Carbon dioxide, total [Moles /volume] in Central venous bloodOrdered By: Roddy Reeves on 01-02-2025 CO2 [Moles/Vol] 19.6 mmol/L Low 21.0-32.0 [facility] Chloride assayOrdered By: Catrachito Reeves on 01-02-2025 Chloride [Moles/Vol] 95 mmol/L Low 98-108 [facility] Eosinophil percentageOrdered By: Roddy Reeves on 01-02-2025 Eosinophils/100 WBC (Bld) 6.9 % High 0-5 [facility] Erythrocyte distribution wid th ratioOrdered By: Roddy Reeves on 01-02-2025 Erythrocyte distribution width (RBC) [Ratio] 16.4 % High 11.6-14.6 [facility] Erythrocyte distribution wid th standard deviationOrdered By: Roddy Reeves on 01-02-2025 Erythrocyte distribution width (RBC) [Ratio] 51.1 fl High 35.1-43.9 [facility] Glomerular filtration rate ( GFR) estimation/1.73 sq m using serum, plasma, or whole bOrdered By: Roddy Reeves on 01-02-2025 GFR/1.73 sq M.predicted among non-blacks MDRD (S/P/Bld) [Vol rate/Area] 19 mL/min/{1.73_m2} Low >60 [facility] Hematocrit Auto (Bld) [Volum e fraction]Ordered By: Roddy Reeves on 01-02-2025 Hematocrit (Bld) [Volume fraction] 28.0 % Low 40-54 [facility] Hemoglobin measurementOrdere d By: Roddy Reeves on 01-02-2025 Hemoglobin (Bld) [Mass/Vol] 9.5 g/dL Low 13.0-16.5 [facility] Immature granulocytes/100 WB C Auto (Bld)Ordered By: Roddy Reeves on 01-02-2025 Immature granulocytes/100 WBC (Bld) 0.600 % 0.0-0.9 [facility] Ketones Test strip Ql (U)Ord ered By: Roddy Reeves on 01-02-2025 Ketones Ql (U) 5 mg/dl High Negative [facility] MCV (mean corpuscular volume ) determinationOrdered By: Roddy Revees on 01-02-2025 MCV (RBC) [Entitic vol] 87.2 fL 80-94 [facility] Magnesium measurement (mass/ volume)Ordered By: Roddy Reeves 01-02-2025 Magnesium (Unsp spec) [Mass/Vol] 2.0 mg/dL 1.5-2.2 [facility] Mean corpuscular hemoglobin (MCH) determinationOrdered By: Roddy Reeves on 01-02-2025 MCH (RBC) [Entitic mass] 29.6 pg 27.0-32.0 [facility] Monocyte percentageOrdered B y: Roddy Reeves on 01-02-2025 Monocytes/100 WBC (Bld) 11.9 % High 0-10 [facility] Mucus LM Ql (Urine sed)Order ed By: Roddy Reeves on 01-02-2025 Mucus Ql (Urine sed) 0 SEEN /hpf [facility] Neutrophil percentageOrdered By: Roddy Reeves on 01-02-2025 Neutrophils/100 WBC (Bld) 68.0 % 47-70 [facility] Nitrite Test strip Ql (U)Ord ered By: Roddy Reeves on 01-02-2025 Nitrite Ql (U) Negative Negative [facility] No Panel InformationOrdered By: Roddy Reeves on 01-02-2025 37 U/L <38 [facility] Platelet countOrdered By: Catrachito Reeves on 01-02-2025 Platelets (Bld) [#/Vol] 171 10*3/uL 150-450 [facility] Potassium measurement (mass/ volume)Ordered By: Roddy Reeves on 01-02-2025 Potassium (Unsp spec) [Mass/Vol] 2.6 mmol/L Low 3.3-5.1 [facility] Protein Test strip Ql (U)Ord ered By: Roddy Reeves on 01-02-2025 Protein Ql (U) 100 mg/dl High Negative [facility] RBC Auto (Bld) [#/Vol]Ordere d By: Roddy Reeves on 01-02-2025 RBC (Bld) [#/Vol] 3.21 10*6/uL Low 4.6-6.2 [facility] Serum creatinine measurement (mass/volume)Ordered By: Roddy Reeves on 01-02-2025 Creatinine [Mass/Vol] 3.54 mg/dL High 0.70-1.20 [facility] Serum globulin measurementOr dered By: Roddy Reeves on 01-02-2025 Globulin (S) [Mass/Vol] 3.4 g/dL 2.2-4.2 [facility] Serum glucose measurement (m ass/volume)Ordered By: Roddy Reeves on 01-02-2025 Glucose [Mass/Vol] 164 mg/dL High 70-99 [facility] Serum or plasma alanine thomas otransferase (ALT) measurementOrdered By: Roddy Reeves on 01-02-2025 ALT [Catalytic activity/Vol] 23 U/L <47 [facility] Serum or plasma albumin roosevelt urement (mass/volume)Ordered By: Roddy Reeves on 01-02-2025 Albumin [Mass/Vol] 2.8 g/dL Low 3.5-5.0 [facility] Serum or plasma albumin/glob ulin mass ratioOrdered By: Roddy Reeves on 01-02-2025 Albumin/Globulin [Mass ratio] 0.8 {ratio} Low 0.9-2.4 [facility] Serum or plasma alkaline kendrick sphatase measurementOrdered By: Roddy Reeves on 01-02-2025 ALP [Catalytic activity/Vol] 191 U/L High 40-129 [facility] Serum or plasma calcium roosevelt urement (mass/volume)Ordered By: Roddy Reeves on 01-02-2025 Calcium [Mass/Vol] 9.0 mg/dL 7.6-11.0 [facility] Serum or plasma ethanol roosevelt urement (mass/volume)Ordered By: Roddy Reeves on 01-02-2025 Ethanol [Mass/Vol] mg/dL <10.1 [facility] Serum or plasma urea nitroge n measurement (mass/volume)Ordered By: Roddy Reeves on 01-02-2025 Urea nitrogen [Mass/Vol] 46 mg/dL High 4-19 [facility] Sodium levelOrdered By: Valentín Reeves on 01-02-2025 Sodium [Moles/Vol] 132 mmol/L Low 133-145 [facility] Squamous epithelial cells de tection in urine sediment by light microscopyOrdered By: Roddy Reeves on 01-02-2025 Epithelial cells.squamous LM Ql (Urine sed) 0 SEEN /hpf 0-5 [facility] Total proteinOrdered By: Zoila Reeves on 01-02-2025 Protein [Mass/Vol] 6.1 g/dL 5.9-8.4 [facility] Urine clarityOrdered By: Zoila Reeves on 01-02-2025 Clarity (U) Turbid Clear [facility] Urine color determinationOrd ered By: Roddy Reeves on 01-02-2025 Color (U) Red Yellow [facility] Urine cultureOrdered By: Zoila Reeves on 01-02-2025 Bacteria identified Cx Nom (U) Yeast, not Mary albicans Abnormal [facility] Urine glucose detectionOrder ed By: Roddy Reeves on 01-02-2025 Glucose Ql (U) Normal mg/dl Normal [facility] Urine leukocyte esterase det ection by dipstickOrdered By: Roddy Reeves on 01-02-2025 Leukocyte esterase Test strip Ql (U) 500 /ul High Negative [facility] Urine pHOrdered By: Roddy gonzalez on 01-02-2025 pH (U) 6.0 [pH] 5.0 - 8.0 [facility] Urine sediment bacteria coun t by microscopy (number/high power field)Ordered By: Roddy Reeves on 01-02-2025 Bacteria LM.HPF (Urine sed) [#/Area] 3 /[HPF] None Seen [facility] Urine specific gravity measu rementOrdered By: Roddy Reeves on 01-02-2025 Specific gravity (U) [Rel density] 1.015 1.002-1.030 [facility] Urine urobilinogen measureme ntOrdered By: Roddy Reeves on 01-02-2025 Urobilinogen Ql (U) Normal mg/dl Normal [facility] Venous blood ammonia measure mentOrdered By: Roddy Reeves on 01-02-2025 Ammonia (P) [Moles/Vol] 40.4 umol/L 16-60 [facility] White blood cell (WBC) count Ordered By: Roddy Reeves on 01-02-2025 WBC (Bld) [#/Vol] 12.7 10*3/uL High 4.4-11.0 [facility] White blood cell countOrdere d By: Roddy Reeves on 01-02-2025 White blood cell count 25-50 SEEN /hpf 0-5 [facility] Absolute lymphocyte countOrd ered By: Mina Blood on 12-30-2024 Lymphocytes Auto (Unsp spec) [#/Vol] 1.31 10*3/uL 0.83-4.51 [facility] Anion gap in Serum or Plasma Ordered By: Mina Blood on 12-30-2024 Anion gap [Moles/Vol] 15 mmol/L 5-15 [facility] Automated lymphocyte count a s percentage of total leukocytesOrdered By: Mina Blood on 12-30-2024 Lymphocytes/100 WBC Auto (Unsp spec) 14.0 % Low 19-41 [facility] BUN/creatinine ratioOrdered By: Mina Blood on 12-30-2024 Urea nitrogen/Creatinine [Mass ratio] 14.1 mg/mg 10-20 [facility] Basophil percentageOrdered B y: Mina Blood on 12-30-2024 Basophils/100 WBC (Bld) 0.4 % 0-1 [facility] Bilirubin Test strip Ql (U)O rdered By: Mina Blood on 12-30-2024 Bilirubin Ql (U) Negative Negative [facility] Carbon dioxide, total [Moles /volume] in Central venous bloodOrdered By: Mina Blood on 12-30-2024 CO2 [Moles/Vol] 22.1 mmol/L 21.0-32.0 [facility] Chloride assayOrdered By: Marcella Blood on 12-30-2024 Chloride [Moles/Vol] 91 mmol/L Low 98-108 [facility] Eosinophil percentageOrdered By: Mina Blood on 12-30-2024 Eosinophils/100 WBC (Bld) 6.2 % High 0-5 [facility] Erythrocyte distribution wid th ratioOrdered By: Mina Blood on 12-30-2024 Erythrocyte distribution width (RBC) [Ratio] 16.1 % High 11.6-14.6 [facility] Erythrocyte distribution wid th standard deviationOrdered By: Mina Blood on 12-30-2024 Erythrocyte distribution width (RBC) [Ratio] 50.9 fl High 35.1-43.9 [facility] Glomerular filtration rate ( GFR) estimation/1.73 sq m using serum, plasma, or whole bOrdered By: Mina Blood on 12-30-2024 GFR/1.73 sq M.predicted among non-blacks MDRD (S/P/Bld) [Vol rate/Area] 37 mL/min/{1.73_m2} Low >60 [facility] Glucose measurement at bedsi deOrdered By: Mina Blood on 12-30-2024 Glucose [Mass/Vol] 453 mg/dL High 74-106 [facility] Hematocrit Auto (Bld) [Volum e fraction]Ordered By: Mina Blood on 12-30-2024 Hematocrit (Bld) [Volume fraction] 25.8 % Low 40-54 [facility] Hemoglobin measurementOrdere d By: Mina Blood on 12-30-2024 Hemoglobin (Bld) [Mass/Vol] 8.7 g/dL Low 13.0-16.5 [facility] Immature granulocytes/100 WB C Auto (Bld)Ordered By: Mina Blood on 12-30-2024 Immature granulocytes/100 WBC (Bld) 0.600 % 0.0-0.9 [facility] Ketones Test strip Ql (U)Ord ered By: Mina Blood on 12-30-2024 Ketones Ql (U) Negative Negative [facility] MCV (mean corpuscular volume ) determinationOrdered By: Mina Blood on 12-30-2024 MCV (RBC) [Entitic vol] 88.1 fL 80-94 [facility] Magnesium measurement (mass/ volume)Ordered By: Mina Blood on 12-30-2024 Magnesium (Unsp spec) [Mass/Vol] 1.3 mg/dL Low 1.5-2.2 [facility] Mean corpuscular hemoglobin (MCH) determinationOrdered By: Mina Blood on 12-30-2024 MCH (RBC) [Entitic mass] 29.7 pg 27.0-32.0 [facility] Monocyte percentageOrdered B y: Mina Blood on 12-30-2024 Monocytes/100 WBC (Bld) 9.1 % 0-10 [facility] Mucus LM Ql (Urine sed)Order ed By: Mina Blood on 12-30-2024 Mucus Ql (Urine sed) 0 SEEN /hpf [facility] Neutrophil percentageOrdered By: Mina Blood on 12-30-2024 Neutrophils/100 WBC (Bld) 69.7 % 47-70 [facility] Nitrite Test strip Ql (U)Ord ered By: Mina Blood on 12-30-2024 Nitrite Ql (U) Negative Negative [facility] Platelet countOrdered By: Marcella Blood on 12-30-2024 Platelets (Bld) [#/Vol] 131 10*3/uL Low 150-450 [facility] Potassium measurement (mass/ volume)Ordered By: Mina Blood on 12-30-2024 Potassium (Unsp spec) [Mass/Vol] 3.2 mmol/L Low 3.3-5.1 [facility] Protein Test strip Ql (U)Ord ered By: Mina Blood on 12-30-2024 Protein Ql (U) 100 mg/dl High Negative [facility] RBC Auto (Bld) [#/Vol]Ordere d By: Mina Blood on 12-30-2024 RBC (Bld) [#/Vol] 2.93 10*6/uL Low 4.6-6.2 [facility] Serum creatinine measurement (mass/volume)Ordered By: Mina Blood on 12-30-2024 Creatinine [Mass/Vol] 2.05 mg/dL High 0.70-1.20 [facility] Serum glucose measurement (m ass/volume)Ordered By: Mina Blood on 12-30-2024 Glucose [Mass/Vol] 608 mg/dL High 70-99 [facility] Serum or plasma calcium roosevelt urement (mass/volume)Ordered By: Mina Blood on 12-30-2024 Calcium [Mass/Vol] 9.1 mg/dL 7.6-11.0 [facility] Serum or plasma urea nitroge n measurement (mass/volume)Ordered By: Mina Blood on 12-30-2024 Urea nitrogen [Mass/Vol] 29 mg/dL High 4-19 [facility] Sodium levelOrdered By: Magen Blood on 12-30-2024 Sodium [Moles/Vol] 128 mmol/L Low 133-145 [facility] Squamous epithelial cells de tection in urine sediment by light microscopyOrdered By: Mina Blood on 12-30-2024 Epithelial cells.squamous LM Ql (Urine sed) 0-5 SEEN /hpf 0-5 [facility] Transitional cells detection in urine sediment by light microscopyOrdered By: Mina Blood on 12-30-2024 Transitional cells LM Ql (Urine sed) 0-5 SEEN /hpf 0-5 [facility] Troponin T.cardiac [Mass/vol ume] in Serum or Plasma by High sensitivity methodOrdered By: Mina Blood on 12-30-2024 Troponin T.cardiac High sensitivity method [Mass/Vol] 20 ng/L <22 [facility] Troponin T.cardiac High sensitivity method [Mass/Vol] 19 ng/L <22 [facility] Urine clarityOrdered By: Ever Blood on 12-30-2024 Clarity (U) Cloudy Clear [facility] Urine color determinationOrd ered By: Mina Blood on 12-30-2024 Color (U) Lexis Yellow [facility] Urine cultureOrdered By: Ever Blood on 12-30-2024 Bacteria identified Cx Nom (U) GPC Poss Enterococcus sp Abnormal [facility] Bacteria identified Cx Nom (U) Positive Abnormal [facility] Urine glucose detectionOrder ed By: Mina Blood on 12-30-2024 Glucose Ql (U) 1000 mg/dl High Normal [facility] Urine leukocyte esterase det ection by dipstickOrdered By: Mina Blood on 12-30-2024 Leukocyte esterase Test strip Ql (U) 500 /ul High Negative [facility] Urine pHOrdered By: Mina ferrer on 12-30-2024 pH (U) 6.5 [pH] 5.0 - 8.0 [facility] Urine sediment bacteria coun t by microscopy (number/high power field)Ordered By: Mina Blood on 12-30-2024 Bacteria LM.HPF (Urine sed) [#/Area] 1 /[HPF] None Seen [facility] Urine specific gravity measu rementOrdered By: Mina Blood on 12-30-2024 Specific gravity (U) [Rel density] 1.010 1.002-1.030 [facility] Urine urobilinogen measureme ntOrdered By: Mina Blood on 12-30-2024 Urobilinogen Ql (U) Normal mg/dl Normal [facility] White blood cell (WBC) count Ordered By: Mina Blood on 12-30-2024 WBC (Bld) [#/Vol] 9.4 10*3/uL 4.4-11.0 [facility] White blood cell countOrdere d By: Mina Blood on 12-30-2024 White blood cell count >100 SEEN /hpf 0-5 [facility] Absolute lymphocyte countOrd ered By: Boone Carvajal on 12-26-2024 Lymphocytes Auto (Unsp spec) [#/Vol] 1.69 10*3/uL 0.83-4.51 [facility] Activated partial thrombopla stin time (aPTT) in platelet poor plasma by coagulation aOrdered By: Boone Carvajal on 12-26-2024 aPTT Coag (PPP) [Time] 36.3 s High 24.1-36.2 [facility] Anion gap in Serum or Plasma Ordered By: Boone Carvajal on 12-26-2024 Anion gap [Moles/Vol] 14 mmol/L 5-15 [facility] Automated lymphocyte count a s percentage of total leukocytesOrdered By: Boone Carvajal on 12-26-2024 Lymphocytes/100 WBC Auto (Unsp spec) 15.3 % Low 19-41 [facility] BUN/creatinine ratioOrdered By: Boone Carvajal on 12-26-2024 Urea nitrogen/Creatinine [Mass ratio] 10.3 mg/mg 10-20 [facility] Basophil percentageOrdered B y: Boone Carvajal on 12-26-2024 Basophils/100 WBC (Bld) 0.5 % 0-1 [facility] Beta-hydroxybutyrateOrdered By: Boone Carvajal on 12-26-2024 Beta hydroxybutyrate [Mass/Vol] 0.1 mmol/L 0.0-0.3 [facility] Bilirubin Test strip Ql (U)O rdered By: Boone Carvajal on 12-26-2024 Bilirubin Ql (U) Negative Negative [facility] Bilirubin, totalOrdered By: Boone Carvajal on 12-26-2024 Bilirubin [Mass/Vol] 1.04 mg/dL 0.00-1.30 [facility] Carbon dioxide, total [Moles /volume] in Central venous bloodOrdered By: Boone Carvajal on 12-26-2024 CO2 [Moles/Vol] 20.4 mmol/L Low 21.0-32.0 [facility] Chloride assayOrdered By: Niko Carvajal on 12-26-2024 Chloride [Moles/Vol] 100 mmol/L 98-108 [facility] Eosinophil percentageOrdered By: Boone Carvajal on 12-26-2024 Eosinophils/100 WBC (Bld) 5.8 % High 0-5 [facility] Erythrocyte distribution wid th ratioOrdered By: Boone Carvajal on 12-26-2024 Erythrocyte distribution width (RBC) [Ratio] 16.3 % High 11.6-14.6 [facility] Erythrocyte distribution wid th standard deviationOrdered By: Boone Carvajal on 12-26-2024 Erythrocyte distribution width (RBC) [Ratio] 54.4 fl High 35.1-43.9 [facility] Glomerular filtration rate ( GFR) estimation/1.73 sq m using serum, plasma, or whole bOrdered By: Boone Carvajal on 12-26-2024 GFR/1.73 sq M.predicted among non-blacks MDRD (S/P/Bld) [Vol rate/Area] 30 mL/min/{1.73_m2} Low >60 [facility] Hematocrit Auto (Bld) [Volum e fraction]Ordered By: Boone Carvajal on 12-26-2024 Hematocrit (Bld) [Volume fraction] 29.6 % Low 40-54 [facility] Hemoglobin measurementOrdere d By: Boone Carvajal on 12-26-2024 Hemoglobin (Bld) [Mass/Vol] 9.6 g/dL Low 13.0-16.5 [facility] Immature granulocytes/100 WB C Auto (Bld)Ordered By: Boone Carvajal on 12-26-2024 Immature granulocytes/100 WBC (Bld) 0.500 % 0.0-0.9 [facility] Ketones Test strip Ql (U)Ord ered By: Boone Carvajal on 12-26-2024 Ketones Ql (U) 5 mg/dl High Negative [facility] MCV (mean corpuscular volume ) determinationOrdered By: Boone Carvajal on 12-26-2024 MCV (RBC) [Entitic vol] 90.8 fL 80-94 [facility] Mean corpuscular hemoglobin (MCH) determinationOrdered By: Boone Carvajal on 12-26-2024 MCH (RBC) [Entitic mass] 29.4 pg 27.0-32.0 [facility] Monocyte percentageOrdered B y: Boone Carvajal on 12-26-2024 Monocytes/100 WBC (Bld) 7.4 % 0-10 [facility] Mucus LM Ql (Urine sed)Order ed By: Boone Carvajal on 12-26-2024 Mucus Ql (Urine sed) 0 SEEN /hpf [facility] Neutrophil percentageOrdered By: Boone Carvajal on 12-26-2024 Neutrophils/100 WBC (Bld) 70.5 % High 47-70 [facility] Nitrite Test strip Ql (U)Ord ered By: Boone Carvajal on 12-26-2024 Nitrite Ql (U) Negative Negative [facility] No Panel InformationOrdered By: Boone Carvajal on 12-26-2024 58 U/L High <38 [facility] Platelet countOrdered By: Niko Carvajal on 12-26-2024 Platelets (Bld) [#/Vol] 139 10*3/uL Low 150-450 [facility] Potassium measurement (mass/ volume)Ordered By: Boone Carvajal on 12-26-2024 Potassium (Unsp spec) [Mass/Vol] 3.5 mmol/L 3.3-5.1 [facility] Protein Test strip Ql (U)Ord ered By: Boone Carvajal on 12-26-2024 Protein Ql (U) 500 mg/dl High Negative [facility] Prothrombin timeOrdered By: Boone Carvajal on 12-26-2024 PT Coag (PPP) [Time] 18.5 s High 11.7-14.9 [facility] RBC Auto (Bld) [#/Vol]Ordere d By: Boone Carvajal on 12-26-2024 RBC (Bld) [#/Vol] 3.26 10*6/uL Low 4.6-6.2 [facility] Serum creatinine measurement (mass/volume)Ordered By: Boone Carvajal on 12-26-2024 Creatinine [Mass/Vol] 2.42 mg/dL High 0.70-1.20 [facility] Serum globulin measurementOr dered By: Boone Carvajal on 12-26-2024 Globulin (S) [Mass/Vol] 3.5 g/dL 2.2-4.2 [facility] Serum glucose measurement (m ass/volume)Ordered By: Boone Carvajal on 12-26-2024 Glucose [Mass/Vol] 386 mg/dL High 70-99 [facility] Serum or plasma alanine thomas otransferase (ALT) measurementOrdered By: Boone Carvajal on 12-26-2024 ALT [Catalytic activity/Vol] 27 U/L <47 [facility] Serum or plasma albumin roosevelt urement (mass/volume)Ordered By: Boone Carvajal on 12-26-2024 Albumin [Mass/Vol] 2.8 g/dL Low 3.5-5.0 [facility] Serum or plasma albumin/glob ulin mass ratioOrdered By: Boone Carvajal on 12-26-2024 Albumin/Globulin [Mass ratio] 0.8 {ratio} Low 0.9-2.4 [facility] Serum or plasma alkaline kendrick sphatase measurementOrdered By: Boone Carvajal on 12-26-2024 ALP [Catalytic activity/Vol] 207 U/L High 40-129 [facility] Serum or plasma calcium roosevelt urement (mass/volume)Ordered By: Boone Carvajal on 12-26-2024 Calcium [Mass/Vol] 8.9 mg/dL 7.6-11.0 [facility] Serum or plasma urea nitroge n measurement (mass/volume)Ordered By: Boone Carvajal on 12-26-2024 Urea nitrogen [Mass/Vol] 25 mg/dL High 4-19 [facility] Sodium levelOrdered By: Boone Carvajal on 12-26-2024 Sodium [Moles/Vol] 135 mmol/L 133-145 [facility] Squamous epithelial cells de tection in urine sediment by light microscopyOrdered By: Boone Carvajal on 12-26-2024 Epithelial cells.squamous LM Ql (Urine sed) 0 SEEN /hpf 0-5 [facility] Total proteinOrdered By: Danita Carvajal on 12-26-2024 Protein [Mass/Vol] 6.3 g/dL 5.9-8.4 [facility] Urine clarityOrdered By: Danita Carvajal on 12-26-2024 Clarity (U) Cloudy Clear [facility] Urine color determinationOrd ered By: Boone Carvajal on 12-26-2024 Color (U) Lexis Yellow [facility] Urine cultureOrdered By: Danita Carvajal on 12-26-2024 Bacteria identified Cx Nom (U) Enterococcus faecalis Abnormal [facility] Bacteria identified Cx Nom (U) GNR lactose barkeeper Abnormal [facility] Urine glucose detectionOrder ed By: Boone Carvajal on 12-26-2024 Glucose Ql (U) Normal mg/dl Normal [facility] Urine leukocyte esterase det ection by dipstickOrdered By: Boone Carvajal on 12-26-2024 Leukocyte esterase Test strip Ql (U) 500 /ul High Negative [facility] Urine pHOrdered By: Boone romo on 12-26-2024 pH (U) 6.0 [pH] 5.0 - 8.0 [facility] Urine sediment bacteria coun t by microscopy (number/high power field)Ordered By: Boone Carvajal on 12-26-2024 Bacteria LM.HPF (Urine sed) [#/Area] 0 /[HPF] None Seen [facility] Urine specific gravity measu rementOrdered By: Boone Carvajal on 12-26-2024 Specific gravity (U) [Rel density] 1.015 1.002-1.030 [facility] Urine urobilinogen measureme ntOrdered By: Boone Carvajal on 12-26-2024 Urobilinogen Ql (U) Normal mg/dl Normal [facility] Venous blood ammonia measure mentOrdered By: Boone Carvajal on 12-26-2024 Ammonia (P) [Moles/Vol] 114.0 umol/L High 16-60 [facility] White blood cell (WBC) count Ordered By: Boone Carvajal on 12-26-2024 WBC (Bld) [#/Vol] 11.0 10*3/uL 4.4-11.0 [facility] White blood cell countOrdere d By: Boone Carvajal on 12-26-2024 White blood cell count 25-50 SEEN /hpf 0-5 [facility] Absolute lymphocyte countOrd ered By: Josy Elias on 12-07-2024 Lymphocytes Auto (Unsp spec) [#/Vol] 1.71 10*3/uL 0.83-4.51 [facility] Anion gap in Serum or Plasma Ordered By: Josy Elias on 12-07-2024 Anion gap [Moles/Vol] 12 mmol/L 5-15 [facility] Automated lymphocyte count a s percentage of total leukocytesOrdered By: Josy Elias on 12-07-2024 Lymphocytes/100 WBC Auto (Unsp spec) 18.4 % Low 19-41 [facility] BUN/creatinine ratioOrdered By: Josy Elias on 12-07-2024 Urea nitrogen/Creatinine [Mass ratio] 10.0 mg/mg 10-20 [facility] Basophil percentageOrdered B y: Josy Elias on 12-07-2024 Basophils/100 WBC (Bld) 0.6 % 0-1 [facility] Bilirubin, totalOrdered By: Josy Elias on 12-07-2024 Bilirubin [Mass/Vol] 1.21 mg/dL 0.00-1.30 [facility] CNPTOUTREACHon 12-07-2024 CNPTOUTREACH Normal [facility] Carbon dioxide, total [Moles /volume] in Central venous bloodOrdered By: Josy Elias on 12-07-2024 CO2 [Moles/Vol] 20.0 mmol/L Low 21.0-32.0 [facility] Chloride assayOrdered By: Monica Elias on 12-07-2024 Chloride [Moles/Vol] 103 mmol/L 98-108 [facility] Eosinophil percentageOrdered By: Josy Elias on 12-07-2024 Eosinophils/100 WBC (Bld) 5.1 % High 0-5 [facility] Erythrocyte distribution wid th ratioOrdered By: Josy Elias on 12-07-2024 Erythrocyte distribution width (RBC) [Ratio] 16.9 % High 11.6-14.6 [facility] Erythrocyte distribution wid th standard deviationOrdered By: Josy Elias on 12-07-2024 Erythrocyte distribution width (RBC) [Ratio] 57.4 fl High 35.1-43.9 [facility] Gamma glutamyl transferase ( GGT) measurementOrdered By: Josy Elias on 12-07-2024 Amylase [Catalytic activity/Vol] 103 U/L High 0-65 [facility] Glomerular filtration rate ( GFR) estimation/1.73 sq m using serum, plasma, or whole bOrdered By: Josy Elias on 12-07-2024 GFR/1.73 sq M.predicted among non-blacks MDRD (S/P/Bld) [Vol rate/Area] 44 mL/min/{1.73_m2} Low >60 [facility] Hematocrit Auto (Bld) [Volum e fraction]Ordered By: Josy Elias on 12-07-2024 Hematocrit (Bld) [Volume fraction] 26.2 % Low 40-54 [facility] Hemoglobin A1c percentageOrd ered By: Josy Elias on 12-07-2024 HbA1c (Bld) [Mass fraction] 7.2 % High <5.7 [facility] Hemoglobin measurementOrdere d By: Josy Eilas on 12-07-2024 Hemoglobin (Bld) [Mass/Vol] 8.5 g/dL Low 13.0-16.5 [facility] Immature granulocytes/100 WB C Auto (Bld)Ordered By: Josy Elias on 12-07-2024 Immature granulocytes/100 WBC (Bld) 0.300 % 0.0-0.9 [facility] MCV (mean corpuscular volume ) determinationOrdered By: Josy Elias on 12-07-2024 MCV (RBC) [Entitic vol] 93.2 fL 80-94 [facility] Mean corpuscular hemoglobin (MCH) determinationOrdered By: Josy Elias on 12-07-2024 MCH (RBC) [Entitic mass] 30.2 pg 27.0-32.0 [facility] Monocyte percentageOrdered B y: Josy Elias on 12-07-2024 Monocytes/100 WBC (Bld) 12.1 % High 0-10 [facility] Neutrophil percentageOrdered By: Josy Elias on 12-07-2024 Neutrophils/100 WBC (Bld) 63.5 % 47-70 [facility] No Panel InformationOrdered By: Josy Elias on 12-07-2024 37 U/L <38 [facility] Platelet countOrdered By: Monica Elias on 12-07-2024 Platelets (Bld) [#/Vol] 145 10*3/uL Low 150-450 [facility] Potassium measurement (mass/ volume)Ordered By: Josy Elias on 12-07-2024 Potassium (Unsp spec) [Mass/Vol] 3.3 mmol/L 3.3-5.1 [facility] RBC Auto (Bld) [#/Vol]Ordere d By: Josy Elias on 12-07-2024 RBC (Bld) [#/Vol] 2.81 10*6/uL Low 4.6-6.2 [facility] Serum creatinine measurement (mass/volume)Ordered By: Josy Elias on 12-07-2024 Creatinine [Mass/Vol] 1.78 mg/dL High 0.70-1.20 [facility] Serum globulin measurementOr dered By: Josy Elias on 12-07-2024 Globulin (S) [Mass/Vol] 2.9 g/dL 2.2-4.2 [facility] Serum glucose measurement (m ass/volume)Ordered By: Josy Elias on 12-07-2024 Glucose [Mass/Vol] 185 mg/dL High 70-99 [facility] Serum or plasma alanine thomas otransferase (ALT) measurementOrdered By: Josy Elias on 12-07-2024 ALT [Catalytic activity/Vol] 24 U/L <47 [facility] Serum or plasma albumin roosevelt urement (mass/volume)Ordered By: Josy Elias on 12-07-2024 Albumin [Mass/Vol] 2.6 g/dL Low 3.5-5.0 [facility] Serum or plasma albumin/glob ulin mass ratioOrdered By: Josy Elias 12-07-2024 Albumin/Globulin [Mass ratio] 0.9 {ratio} 0.9-2.4 [facility] Serum or plasma alkaline kendrick sphatase measurementOrdered By: Josy Elias on 12-07-2024 ALP [Catalytic activity/Vol] 241 U/L High 40-129 [facility] Serum or plasma calcium roosevelt urement (mass/volume)Ordered By: Josy Elias on 12-07-2024 Calcium [Mass/Vol] 8.2 mg/dL 7.6-11.0 [facility] Serum or plasma urea nitroge n measurement (mass/volume)Ordered By: Josy Elias on 12-07-2024 Urea nitrogen [Mass/Vol] 18 mg/dL 4-19 [facility] Sodium levelOrdered By: Terrance Elias on 12-07-2024 Sodium [Moles/Vol] 136 mmol/L 133-145 [facility] Total proteinOrdered By: Chinedu Elias on 12-07-2024 Protein [Mass/Vol] 5.5 g/dL Low 5.9-8.4 [facility] White blood cell (WBC) count Ordered By: Josy Elias on 12-07-2024 WBC (Bld) [#/Vol] 9.3 10*3/uL 4.4-11.0 [facility] Absolute lymphocyte countOrd ered By: Hill Acuña on 12-02-2024 Lymphocytes Auto (Unsp spec) [#/Vol] 0.92 10*3/uL 0.83-4.51 [facility] Anion gap in Serum or Plasma Ordered By: Hill Acuña on 12-02-2024 Anion gap [Moles/Vol] 7 mmol/L 5-15 [facility] Automated lymphocyte count a s percentage of total leukocytesOrdered By: Hill Acuña on 12-02-2024 Lymphocytes/100 WBC Auto (Unsp spec) 15.7 % Low 19-41 [facility] BUN/creatinine ratioOrdered By: Hill Acuña on 12-02-2024 Urea nitrogen/Creatinine [Mass ratio] 8.1 mg/mg Low 10-20 [facility] Basophil percentageOrdered B y: Hill Acuña on 12-02-2024 Basophils/100 WBC (Bld) 0.5 % 0-1 [facility] Bilirubin, totalOrdered By: Hill Acuña on 12-02-2024 Bilirubin [Mass/Vol] 1.07 mg/dL 0.00-1.30 [facility] Carbon dioxide, total [Moles /volume] in Central venous bloodOrdered By: Hill Acuña on 12-02-2024 CO2 [Moles/Vol] 21.0 mmol/L 21.0-32.0 [facility] Chloride assayOrdered By: Kvng Acuña on 12-02-2024 Chloride [Moles/Vol] 104 mmol/L 98-108 [facility] Eosinophil percentageOrdered By: Hill Acuña on 12-02-2024 Eosinophils/100 WBC (Bld) 3.6 % 0-5 [facility] Erythrocyte distribution wid th ratioOrdered By: Hill Acuña on 12-02-2024 Erythrocyte distribution width (RBC) [Ratio] 16.2 % High 11.6-14.6 [facility] Erythrocyte distribution wid th standard deviationOrdered By: Hill Acuña on 12-02-2024 Erythrocyte distribution width (RBC) [Ratio] 53.0 fl High 35.1-43.9 [facility] Glomerular filtration rate ( GFR) estimation/1.73 sq m using serum, plasma, or whole bOrdered By: Hill Acuña on 12-02-2024 GFR/1.73 sq M.predicted among non-blacks MDRD (S/P/Bld) [Vol rate/Area] 98 mL/min/{1.73_m2} >60 [facility] de[facility]dered By: Hill Acuña on 12-02-2024 Glucose [Mass/Vol] 259 mg/dL High 74-106 [facility] Hematocrit Auto (Bld) [Volum e fraction]Ordered By: Hill Acuña on 12-02-2024 Hematocrit (Bld) [Volume fraction] 21.9 % Low 40-54 [facility] Hemoglobin measurementOrdere d By: Hill Acuña on 12-02-2024 Hemoglobin (Bld) [Mass/Vol] 7.2 g/dL Low 13.0-16.5 [facility] Immature granulocytes/100 WB C Auto (Bld)Ordered By: Hill Acuña on 12-02-2024 Immature granulocytes/100 WBC (Bld) 0.500 % 0.0-0.9 [facility] MCV (mean corpuscular volume ) determinationOrdered By: Hill Acuña on 12-02-2024 MCV (RBC) [Entitic vol] 89.8 fL 80-94 [facility] Magnesium measurement (mass/ volume)Ordered By: Hill Acuña on 12-02-2024 Magnesium (Unsp spec) [Mass/Vol] 1.6 mg/dL 1.5-2.2 [facility] Mean corpuscular hemoglobin (MCH) determinationOrdered By: Hill Acuña on 12-02-2024 MCH (RBC) [Entitic mass] 29.5 pg 27.0-32.0 [facility] Monocyte percentageOrdered B y: Hill Acuña on 12-02-2024 Monocytes/100 WBC (Bld) 13.3 % High 0-10 [facility] Neutrophil percentageOrdered By: Hill Acuña on 12-02-2024 Neutrophils/100 WBC (Bld) 66.4 % 47-70 [facility] No Panel InformationOrdered By: Hill Acuña on 12-02-2024 58 U/L High <38 [facility] Platelet countOrdered By: Kvng Acuña on 12-02-2024 Platelets (Bld) [#/Vol] 100 10*3/uL Low 150-450 [facility] Potassium measurement (mass/ volume)Ordered By: Hill Acuña on 12-02-2024 Potassium (Unsp spec) [Mass/Vol] 3.8 mmol/L 3.3-5.1 [facility] RBC Auto (Bld) [#/Vol]Ordere d By: Hill Acuña on 12-02-2024 RBC (Bld) [#/Vol] 2.44 10*6/uL Low 4.6-6.2 [facility] Serum creatinine measurement (mass/volume)Ordered By: Hill Acuña on 12-02-2024 Creatinine [Mass/Vol] 0.90 mg/dL 0.70-1.20 [facility] Serum globulin measurementOr dered By: Hill Acuña on 12-02-2024 Globulin (S) [Mass/Vol] 2.6 g/dL 2.2-4.2 [facility] Serum glucose measurement (m ass/volume)Ordered By: Hill Acuña on 12-02-2024 Glucose [Mass/Vol] 221 mg/dL High 70-99 [facility] Serum or plasma alanine thomas otransferase (ALT) measurementOrdered By: Hill Acuña on 12-02-2024 ALT [Catalytic activity/Vol] 33 U/L <47 [facility] Serum or plasma albumin roosevelt urement (mass/volume)Ordered By: Hill Acuña on 12-02-2024 Albumin [Mass/Vol] 2.5 g/dL Low 3.5-5.0 [facility] Serum or plasma albumin/glob ulin mass ratioOrdered By: Hill Acuña on 12-02-2024 Albumin/Globulin [Mass ratio] 1.0 {ratio} 0.9-2.4 [facility] Serum or plasma alkaline kendrick sphatase measurementOrdered By: Hill Acuña on 12-02-2024 ALP [Catalytic activity/Vol] 219 U/L High 40-129 [facility] Serum or plasma calcium roosevelt urement (mass/volume)Ordered By: Hill Acuña on 12-02-2024 Calcium [Mass/Vol] 7.8 mg/dL 7.6-11.0 [facility] Serum or plasma urea nitroge n measurement (mass/volume)Ordered By: Hill Acuña on 12-02-2024 Urea nitrogen [Mass/Vol] 7 mg/dL 4-19 [facility] Sodium levelOrdered By: Paulino Acuña on 12-02-2024 Sodium [Moles/Vol] 132 mmol/L Low 133-145 [facility] Total proteinOrdered By: Hugo Acuña on 12-02-2024 Protein [Mass/Vol] 5.1 g/dL Low 5.9-8.4 [facility] Trough vancomycin levelOrder ed By: Maria Guadalupe Shore on 12-02-2024 Vancomycin trough [Mass/Vol] 19.6 ug/mL High 5.0-15.0 [facility] White blood cell (WBC) count Ordered By: Hill Acuña on 12-02-2024 WBC (Bld) [#/Vol] 5.9 10*3/uL 4.4-11.0 [facility] Platelet estimateOrdered By: Hill Acuña on 11-30-2024 Platelets LM Ql (Bld) MOD DEC ADEQ [facility] Serum or plasma vancomycin m easurement (mass/volume)Ordered By: Kathie Powers on 11-30-2024 Vancomycin [Mass/Vol] 17.7 ug/mL High 0.0-15.0 [facility] Prothrombin timeOrdered By: Kathie Powers on 11-29-2024 PT Coag (PPP) [Time] 21.1 s High 11.7-14.9 [facility] Bilirubin Test strip Ql (U)O rdered By: Rachel Joiner on 11-28-2024 Bilirubin Ql (U) Negative Negative [facility] Bilirubin directOrdered By: Rachel Joiner on 11-28-2024 Bilirubin.direct [Mass/Vol] 0.72 mg/dL High 0.00-0.30 [facility] Ketones Test strip Ql (U)Ord ered By: Rachel Joiner on 11-28-2024 Ketones Ql (U) 5 mg/dl High Negative [facility] Mucus LM Ql (Urine sed)Order ed By: Rachel Joiner on 11-28-2024 Mucus Ql (Urine sed) 0 SEEN /hpf [facility] Nitrite Test strip Ql (U)Ord ered By: Rachel Joiner on 11-28-2024 Nitrite Ql (U) Positive High Negative [facility] Protein Test strip Ql (U)Ord ered By: Rachel Joiner on 11-28-2024 Protein Ql (U) 100 mg/dl High Negative [facility] Squamous epithelial cells de tection in urine sediment by light microscopyOrdered By: Rachel Joiner on 11-28-2024 Epithelial cells.squamous LM Ql (Urine sed) 0-5 SEEN /hpf 0-5 [facility] Urine clarityOrdered By: Shi Joiner on 11-28-2024 Clarity (U) Cloudy Clear [facility] Urine color determinationOrd ered By: Rachel Joiner on 11-28-2024 Color (U) Lexis Yellow [facility] Urine cultureOrdered By: Tyree Powers on 11-28-2024 Bacteria identified Cx Nom (U) ESBL Klebsiella pneumoniae pne Abnormal [facility] Urine glucose detectionOrder ed By: Rachel Joiner on 11-28-2024 Glucose Ql (U) Normal mg/dl Normal [facility] Urine leukocyte esterase det ection by dipstickOrdered By: Rachel Joiner on 11-28-2024 Leukocyte esterase Test strip Ql (U) 500 /ul High Negative [facility] Urine pHOrdered By: Rachel silva on 11-28-2024 pH (U) 6.5 [pH] 5.0 - 8.0 [facility] Urine sediment bacteria coun t by microscopy (number/high power field)Ordered By: Rachel Joiner on 11-28-2024 Bacteria LM.HPF (Urine sed) [#/Area] 1 /[HPF] None Seen [facility] Urine specific gravity measu rementOrdered By: Rachel Joiner on 11-28-2024 Specific gravity (U) [Rel density] 1.010 1.002-1.030 [facility] Urine urobilinogen measureme ntOrdered By: Rachel Joiner on 11-28-2024 Urobilinogen Ql (U) Normal mg/dl Normal [facility] Venous blood ammonia measure mentOrdered By: Rachel Joiner on 11-28-2024 Ammonia (P) [Moles/Vol] 68.4 umol/L High 16-60 [facility] White blood cell countOrdere d By: Rachel Joiner on 11-28-2024 White blood cell count 50-100 SEEN /hpf 0-5 [facility] Absolute lymphocyte countOrd ered By: Anurag Irene on 11-25-2024 Lymphocytes Auto (Unsp spec) [#/Vol] 0.92 10*3/uL 0.83-4.51 [facility] Anion gap in Serum or Plasma Ordered By: Anurag Irene on 11-25-2024 Anion gap [Moles/Vol] 8 mmol/L 5-15 [facility] Automated lymphocyte count a s percentage of total leukocytesOrdered By: Anurag Irene on 11-25-2024 Lymphocytes/100 WBC Auto (Unsp spec) 16.7 % Low 19-41 [facility] BUN/creatinine ratioOrdered By: Anurag Irene on 11-25-2024 Urea nitrogen/Creatinine [Mass ratio] 9.2 mg/mg Low 10-20 [facility] Basophil percentageOrdered B y: Anurag Irene on 11-25-2024 Basophils/100 WBC (Bld) 0.4 % 0-1 [facility] Bilirubin, totalOrdered By: Anurag Irene on 11-25-2024 Bilirubin [Mass/Vol] 1.07 mg/dL 0.00-1.30 [facility] Carbon dioxide, total [Moles /volume] in Central venous bloodOrdered By: Anurag Irene on 11-25-2024 CO2 [Moles/Vol] 19.3 mmol/L Low 21.0-32.0 [facility] Chloride assayOrdered By: Francois Irene on 11-25-2024 Chloride [Moles/Vol] 108 mmol/L 98-108 [facility] Eosinophil percentageOrdered By: Anurag Irene on 11-25-2024 Eosinophils/100 WBC (Bld) 4.2 % 0-5 [facility] Erythrocyte distribution wid th ratioOrdered By: Anurag Irene on 11-25-2024 Erythrocyte distribution width (RBC) [Ratio] 15.8 % High 11.6-14.6 [facility] Erythrocyte distribution wid th standard deviationOrdered By: Anurag Irene on 11-25-2024 Erythrocyte distribution width (RBC) [Ratio] 52.9 fl High 35.1-43.9 [facility] Glomerular filtration rate ( GFR) estimation/1.73 sq m using serum, plasma, or whole bOrdered By: Anurag Irene on 11-25-2024 GFR/1.73 sq M.predicted among non-blacks MDRD (S/P/Bld) [Vol rate/Area] 100 mL/min/{1.73_m2} >60 [facility] de[facility]dered By: Anurag Irene on 11-25-2024 Glucose [Mass/Vol] 222 mg/dL High 74-106 [facility] Hematocrit Auto (Bld) [Volum e fraction]Ordered By: Anurag Irene 11-25-2024 Hematocrit (Bld) [Volume fraction] 21.5 % Low 40-54 [facility] Hemoglobin measurementOrdere d By: Anurag Irene on 11-25-2024 Hemoglobin (Bld) [Mass/Vol] 7.0 g/dL Low 13.0-16.5 [facility] Immature granulocytes/100 WB C Auto (Bld)Ordered By: Anurag Irene on 11-25-2024 Immature granulocytes/100 WBC (Bld) 0.400 % 0.0-0.9 [facility] MCV (mean corpuscular volume ) determinationOrdered By: Anurag Irene on 11-25-2024 MCV (RBC) [Entitic vol] 93.1 fL 80-94 [facility] Mean corpuscular hemoglobin (MCH) determinationOrdered By: Anurag Irene on 11-25-2024 MCH (RBC) [Entitic mass] 30.3 pg 27.0-32.0 [facility] Monocyte percentageOrdered B y: Anurag Irene on 11-25-2024 Monocytes/100 WBC (Bld) 12.7 % High 0-10 [facility] Neutrophil percentageOrdered By: Anurag Irene on 11-25-2024 Neutrophils/100 WBC (Bld) 65.6 % 47-70 [facility] No Panel InformationOrdered By: Anurag Irene on 11-25-2024 60 U/L High <38 [facility] Platelet countOrdered By: Francois Irene on 11-25-2024 Platelets (Bld) [#/Vol] 82 10*3/uL Low 150-450 [facility] Potassium measurement (mass/ volume)Ordered By: Anurag Irene on 11-25-2024 Potassium (Unsp spec) [Mass/Vol] 4.2 mmol/L 3.3-5.1 [facility] RBC Auto (Bld) [#/Vol]Ordere d By: Anurag Irene on 11-25-2024 RBC (Bld) [#/Vol] 2.31 10*6/uL Low 4.6-6.2 [facility] Serum creatinine measurement (mass/volume)Ordered By: Anurag Irene on 11-25-2024 Creatinine [Mass/Vol] 0.86 mg/dL 0.70-1.20 [facility] Serum globulin measurementOr dered By: Anurag Irene on 11-25-2024 Globulin (S) [Mass/Vol] 2.2 g/dL 2.2-4.2 [facility] Serum glucose measurement (m ass/volume)Ordered By: Anurag Irene on 11-25-2024 Glucose [Mass/Vol] 179 mg/dL High 70-99 [facility] Serum or plasma alanine thomas otransferase (ALT) measurementOrdered By: Anurag Irene on 11-25-2024 ALT [Catalytic activity/Vol] 41 U/L <47 [facility] Serum or plasma albumin roosevelt urement (mass/volume)Ordered By: Anurag Irene on 11-25-2024 Albumin [Mass/Vol] 2.7 g/dL Low 3.5-5.0 [facility] Serum or plasma albumin/glob ulin mass ratioOrdered By: Anurag Irene on 11-25-2024 Albumin/Globulin [Mass ratio] 1.2 {ratio} 0.9-2.4 [facility] Serum or plasma alkaline kendrick sphatase measurementOrdered By: Anurag Irene on 11-25-2024 ALP [Catalytic activity/Vol] 168 U/L High 40-129 [facility] Serum or plasma calcium roosevelt urement (mass/volume)Ordered By: Anurag Irene on 11-25-2024 Calcium [Mass/Vol] 8.3 mg/dL 7.6-11.0 [facility] Serum or plasma urea nitroge n measurement (mass/volume)Ordered By: Anurag Irene on 11-25-2024 Urea nitrogen [Mass/Vol] 8 mg/dL 4-19 [facility] Sodium levelOrdered By: Marni Irene on 11-25-2024 Sodium [Moles/Vol] 135 mmol/L 133-145 [facility] Total proteinOrdered By: [place] Irene on 11-25-2024 Protein [Mass/Vol] 4.9 g/dL Low 5.9-8.4 [facility] White blood cell (WBC) count Ordered By: Anurag Irene on 11-25-2024 WBC (Bld) [#/Vol] 5.5 10*3/uL 4.4-11.0 [facility] Blood manual differential co mment interpretation (narrative result)Ordered By: Anurag Irene on 11-24-2024 Manual differential comment Marco Antonio (Bld) [Interp] SCANNED [facility] Platelet estimateOrdered By: Anurag Irene on 11-24-2024 Platelets LM Ql (Bld) MOD DEC ADEQ [facility] Prothrombin timeOrdered By: Anurag Irene on 11-24-2024 PT Coag (PPP) [Time] 22.6 s High 11.7-14.9 [facility] Bilirubin directOrdered By: Anurag Irene on 11-22-2024 Bilirubin.direct [Mass/Vol] 0.73 mg/dL High 0.00-0.30 [facility] ALP [Catalytic activity/Vol] Ordered By: Herberth Carlson on 11-21-2024 Serum or plasma alkaline phosphatase measurement 245 U/L High 40-129 [facility] ALT [Catalytic activity/Vol] Ordered By: Herberth Carlson on 11-21-2024 Serum or plasma alanine aminotransferase (ALT) measurement 61 U/L High <47 [facility] Absolute neutrophil countOrd ered By: Herberth Carlson on 11-21-2024 Absolute neutrophil count 6.5 X10^3/uL 2.0-7.7 [facility] Albumin [Mass/Vol]Ordered By : Herberth Carlson on 11-21-2024 Serum or plasma albumin measurement (mass/volume) 2.5 g/dL Low 3.5-5.0 [facility] Albumin/Globulin [Mass ratio ]Ordered By: Herberth Carlson on 11-21-2024 Serum or plasma albumin/globulin mass ratio 0.9 RATIO 0.9-2.4 [facility] Anion gap [Moles/Vol]Ordered By: Herberth Carlson on 11-21-2024 Anion gap in Serum or Plasma 11 5-15 [facility] BUN/creatinine ratioOrdered By: Herberthdominique Carlson on 11-21-2024 BUN/creatinine ratio 19.1 RATIO 10-20 [facility] Bacteria LM.HPF (Urine sed) [#/Area]Ordered By: Herberth Carlson on 11-21-2024 Urine sediment bacteria count by microscopy (number/high power field) RARE /hpf None Seen [facility] Basophil percentageOrdered B y: Herberth Carlson on 11-21-2024 Basophil percentage 0.2 % 0-1 [facility] Bilirubin Test strip Ql (U)O rdered By: Herberth Carlson on 11-21-2024 Bilirubin Ql (U) Negative Negative [facility] Bilirubin, totalOrdered By: Herberth Carlson on 11-21-2024 Bilirubin, total 1.33 mg/dL High 0.00-1.30 [facility] Calcium [Mass/Vol]Ordered By : Herberth Carlson on 11-21-2024 Serum or plasma calcium measurement (mass/volume) 8.7 mg/dL 7.6-11.0 [facility] Carbon dioxide, total [Moles /volume] in Central venous bloodOrdered By: Herberth Carlson on 11-21-2024 Carbon dioxide, total [Moles/volume] in Central venous blood 17.5 mmol/L Low 21.0-32.0 [facility] Chloride assayOrdered By: Kaylyn Carlson on 11-21-2024 Chloride assay 103 mmol/L 98-108 [facility] Clarity (U)Ordered By: Ashish Carlson on 11-21-2024 Urine clarity Sl Cldy Clear [facility] Color (U)Ordered By: Herberth Carlson on 11-21-2024 Urine color determination Yellow Yellow [facility] Creatinine [Mass/Vol]Ordered By: Herberth Carlson on 11-21-2024 Serum creatinine measurement (mass/volume) 1.49 mg/dL High 0.70-1.20 [facility] Eosinophil percentageOrdered By: Herberth Carlson on 11-21-2024 Eosinophil percentage 7.2 % High 0-5 [facility] Erythrocyte distribution wid th (RBC) [Ratio]Ordered By: Herberth Carlson on 11-21-2024 Erythrocyte distribution width ratio 16.8 % High 11.6-14.6 [facility] Erythrocyte distribution width standard deviation 57.1 fl High 35.1-43.9 [facility] Estimation of creatinine obed aranceOrdered By: Herberth Carlson on 11-21-2024 Estimation of creatinine clearance 64.65 ml/min 50-250 [facility] GFR/1.73 sq M.predicted niki g non-blacks MDRD (S/P/Bld) [Vol rate/Area]Ordered By: Herberth Carlson on 11-21-2024 Glomerular filtration rate (GFR) estimation/1.73 sq m using serum, plasma, or whole b 54 Low >60 [facility] Glucose [Mass/Vol]Ordered By : Herberth Carlson on 11-21-2024 Serum glucose measurement (mass/volume) 188 mg/dL High 70-99 [facility] Hematocrit Auto (Bld) [Volum e fraction]Ordered By: Herberth Carlson on 11-21-2024 Automated blood hematocrit (percentage) 24.6 % Low 40-54 [facility] Hemoglobin measurementOrdere d By: Herberth Carlson on 11-21-2024 Hemoglobin measurement 8.3 g/dL Low 13.0-16.5 [facility] Immature granulocytes/100 WB C Auto (Bld)Ordered By: Herberth Carlson on 11-21-2024 Automated immature granulocyte percentage 0.800 % 0.0-0.9 [facility] International normalized rat io (INR) calculationOrdered By: Herberth Carlson on 11-21-2024 International normalized ratio (INR) calculation 2.6 [facility] Ketones Test strip Ql (U)Ord ered By: Herberth Carlson on 11-21-2024 Ketones Ql (U) Negative Negative [facility] Lactic acid measurementOrder ed By: Herberth Carlson on 11-21-2024 Lactic acid measurement 2.7 mmol/L High 0.0-2.0 [facility] Leukocyte esterase Test stri p Ql (U)Ordered By: Herberth Carlson on 11-21-2024 Urine leukocyte esterase detection by dipstick 500 /ul High Negative [facility] Lymphocytes Auto (Unsp spec) [#/Vol]Ordered By: Herberth Carlson on 11-21-2024 Absolute lymphocyte count 1.33 X10^3/uL 0.83-4.51 [facility] Lymphocytes/100 WBC Auto (Un sp spec)Ordered By: Herberth Carlson on 11-21-2024 Automated lymphocyte count as percentage of total leukocytes 13.9 % Low 19-41 [facility] MCV (RBC) [Entitic vol]Order ed By: Herberth Carlson on 11-21-2024 MCV (mean corpuscular volume) determination 93.2 fL 80-94 [facility] Mean corpuscular hemoglobin (MCH) determinationOrdered By: Herberth Carlson on 11-21-2024 Mean corpuscular hemoglobin (MCH) determination 31.4 pg 27.0-32.0 [facility] Mean corpuscular hemoglobin concentration (MCHC) determinationOrdered By: Herberth Carlson on 11-21-2024 Mean corpuscular hemoglobin concentration (MCHC) determination 33.7 g/dL 32-36 [facility] Mean platelet volume determi nationOrdered By: Herberth Carlson on 11-21-2024 Mean platelet volume determination 11.6 fl 6.2-12.0 [facility] Monocyte percentageOrdered B y: Herberth Carlson on 11-21-2024 Monocyte percentage 9.2 % 0-10 [facility] Mucus LM Ql (Urine sed)Order ed By: Herberth Carlson on 11-21-2024 Mucus Ql (Urine sed) 0 SEEN /hpf [facility] Neutrophil percentageOrdered By: Herberth Carlson on 11-21-2024 Neutrophil percentage 68.7 % 47-70 [facility] Nitrite Test strip Ql (U)Ord ered By: Herberth Carlson on 11-21-2024 Nitrite Ql (U) Negative Negative [facility] No Panel InformationOrdered By: Herberth Carlson on 11-21-2024 112 U/L High <38 [facility] Nucleated red blood cell per centageOrdered By: Herberth Carlson on 11-21-2024 Nucleated red blood cell percentage 0 % 0-5 [facility] Platelet countOrdered By: Kaylyn Carlson on 11-21-2024 Platelet count 167 K/mm3 150-450 [facility] Potassium (Unsp spec) [Mass/ Vol]Ordered By: Herberth Carlson on 11-21-2024 Potassium measurement (mass/volume) 5.0 mmol/L 3.3-5.1 [facility] Protein Test strip Ql (U)Ord ered By: Herberth Carlson on 11-21-2024 Protein Ql (U) 500 mg/dl High Negative [facility] Urine protein assay by test strip, semi-quantitative 500 mg/dl High Negative [facility] Prothrombin timeOrdered By: Herberth Carlson on 11-21-2024 Prothrombin time 28.2 SECONDS High 11.7-14.9 [facility] RBC Auto (Bld) [#/Vol]Ordere d By: Herberth Carlson on 11-21-2024 Automated blood erythrocyte count 2.64 M/mm3 Low 4.6-6.2 [facility] Serum globulin measurementOr dered By: Herberth Carlson on 11-21-2024 Serum globulin measurement 2.7 g/dL 2.2-4.2 [facility] Sodium levelOrdered By: Norman Carlson on 11-21-2024 Sodium level 132 mmol/L Low 133-145 [facility] Specific gravity (U) [Rel de nsity]Ordered By: Herberth Carlson on 11-21-2024 Urine specific gravity measurement 1.015 1.002-1.030 [facility] Squamous epithelial cells de tection in urine sediment by light microscopyOrdered By: Herberth Carlson on 11-21-2024 Epithelial cells.squamous LM Ql (Urine sed) 0 SEEN /hpf 0-5 [facility] Squamous epithelial cells detection in urine sediment by light microscopy 0 SEEN /hpf [facility] Total proteinOrdered By: Digna Carlson on 11-21-2024 Total protein 5.2 g/dL Low 5.9-8.4 [facility] Urea nitrogen [Mass/Vol]Orde red By: Herberth Carlson on 11-21-2024 Serum or plasma urea nitrogen measurement (mass/volume) 28 mg/dL High 4-19 [facility] Urine blood detectionOrdered By: Herberth Carlson on 11-21-2024 Urine blood detection 250 /ul High Negative [facility] Urine clarityOrdered By: Digna Carlson on 11-21-2024 Clarity (U) Sl Cldy Clear [facility] Urine color determinationOrd ered By: Herberth Carlson on 11-21-2024 Color (U) Yellow Yellow [facility] Urine cultureOrdered By: Digna Carlson on 11-21-2024 Bacteria identified Cx Nom (U) GNR lactose barkeeper Abnormal [facility] Bacteria identified Cx Nom (U) GPC Poss Enterococcus sp Abnormal [facility] Bacteria identified Cx Nom (U) Positive Abnormal [facility] Urine glucose detectionOrder ed By: Herberth Carlson on 11-21-2024 Glucose Ql (U) Normal mg/dl Normal [facility] Urine glucose detection Normal mg/dl Normal [facility] Urine leukocyte esterase det ection by dipstickOrdered By: Herberth Carlson on 11-21-2024 Leukocyte esterase Test strip Ql (U) 500 /ul High Negative [facility] Urine pHOrdered By: Herberth Carlson on 11-21-2024 pH (U) 6.0 [pH] 5.0 - 8.0 [facility] Urine sediment bacteria coun t by microscopy (number/high power field)Ordered By: Herberth Carlson on 11-21-2024 Bacteria LM.HPF (Urine sed) [#/Area] RARE /hpf None Seen [facility] Urine specific gravity measu rementOrdered By: Herberth Carlson on 11-21-2024 Specific gravity (U) [Rel density] 1.015 1.002-1.030 [facility] Urine total bilirubin detect ion by test stripOrdered By: Herberth Carlson on 11-21-2024 Urine total bilirubin detection by test strip Negative Negative [facility] Urine urobilinogen measureme ntOrdered By: Herberth Carlson on 11-21-2024 Urobilinogen Ql (U) Normal mg/dl Normal [facility] Venous blood ammonia measure mentOrdered By: Herberth Carlson on 11-21-2024 Ammonia (P) [Moles/Vol] 17.9 umol/L [facility] Venous blood ammonia measurement 17.9 umol/L [facility] White blood cell (WBC) count Ordered By: Herberth Carlson on 11-21-2024 White blood cell (WBC) count 9.5 K/mm3 4.4-11.0 [facility] White blood cell countOrdere d By: Herberth Carlson on 11-21-2024 White blood cell count >100 SEEN /hpf 0-5 [facility] White blood cell count >100 SEEN /hpf 0-5 [facility] pH (U)Ordered By: Herberth henao on 11-21-2024 Urine pH 6.0 5.0 - 8.0 [facility] Bacteria Ur Culton Bacteria identified Cx Nom (U) CULTURE, URINE: Mixed microbiota, including predominantly: ORGANISM ID: 1 >=100,000 CFU/ml Mary glabrata No susceptibility testing done. Normal [facility] Comment on above: Performed By: #### 6 30-4 ####[facility] LABCLIA [id number] [place] [address] [place] Bacteria identified Cx Nom (U) Normal [facility] Comment on above: Performed By: #### 2 4356-8, 630-4 ####[facility] LABCLIA [id number] [address] [address] [place] Basic metabolic 2000 panelon 11-18-2024 Anion gap [Moles/Vol] 8 mmol/L Normal 8-15 [facility] Comment on above: Order Comment: Speci men Type: BLOOD SPECIMENOrdering Facility: [facility] Address: [address] [place] [address] Performed By: #### 2 4321-2, 17822-6, 2776-1 ####[facility] LABCLIA [id number] [place] [address] [place] Calcium [Mass/Vol] 8.3 mg/dL Low 8.5-10.2 [facility] Comment on above: Order Comment: Speci men Type: BLOOD SPECIMENOrdering Facility: [facility] Address: [address] [place] [address] Performed By: #### 2 4321-2, 80274-0, 2776- ####[facility] LABCLIA [id number] [place] [address] [place] Chloride [Moles/Vol] 102 mmol/L Normal 98-107 [facility] Comment on above: Order Comment: Speci men Type: BLOOD SPECIMENOrdering Facility: [facility] Address: [address] [place] [address] Performed By: #### 2 4321-2, 74910-2, 2776- ####[facility]CLIA [id number] [place] [address] [place] CO2 [Moles/Vol] 19 mmol/L Low 22-30 [facility] Comment on above: Order Comment: Speci men Type: BLOOD SPECIMENOrdering Facility: [facility] Address: [address] [place] [address] Performed By: #### 2 4321-2, 64950-5, 2776-1 ####[facility] LABCLIA [id number] [place] [id number] [place] Creatinine [Mass/Vol] 0.95 mg/dL Normal 0.73-1.22 [facility] Comment on above: Order Comment: Ezekiel ramirez Type: BLOOD SPECIMENOrdering Facility: [facility] Address: [address] [place] [address] Performed By: #### 2 4321-2, 90324-4, 2777-1 ####[facility] LABCLIA [id number] [place] [address] [place] Creatinine and Glomerular filtration rate.predicted panel (S/P/Bld) 93 mL/min/1.73m??? Normal >=60 [facility] Comment on above: Order Comment: Ezekiel ramirez Type: BLOOD SPECIMENOrdering Facility: [facility] Address: [address] [place] [address] Result Comment: Patric mated Glomerular Filtration Rate [...] actual GFR. Performed By: #### 2 4321-2, 19170-1, 27702-01 ####[facility] LABCLIA [id number] [place] [id number] [place] Glucose [Mass/Vol] 248 mg/dL High 74-99 [facility] Comment on above: Order Comment: Ezekiel ramirez Type: BLOOD SPECIMENOrdering Facility: [facility] Address: [address] [place] [address] Result Comment: The [place] [employer] (ADA) provides guidance for cutoff [...] Standards of Medical Care in Diabetes 2016, [place] [employer]. Diabetes Care. 2016.39(Suppl 1). Performed By: #### 2 4321-2, 42560-9, 2776- ####[facility] LABCLIA [id number] [address] [address] [place] Potassium [Moles/Vol] 4.4 mmol/L Normal 3.7-5.1 [facility] Comment on above: Order Comment: Speci men Type: BLOOD SPECIMENOrdering Facility: [facility] Address: [address] [place] [address] Performed By: #### 2 4321-2, 16975-7, 2776-08 ####[facility] LABCLIA [id number] [place] [id number] [place] Sodium [Moles/Vol] 129 mmol/L Low 136-144 [facility] Comment on above: Order Comment: Speci men Type: BLOOD SPECIMENOrdering Facility: [facility] Address: [address] [place] [address] Performed By: #### 2 432-2, 76834-7, 2776-08 ####[facility] LABCLIA [id number] [address] [address] [place] Urea nitrogen [Mass/Vol] 16 mg/dL Normal 9-24 [facility] Comment on above: Order Comment: Speci men Type: BLOOD SPECIMENOrdering Facility: [facility] Address: [address] [place] [address] Performed By: #### 2 4321-2, 82494-4, 2776-08 ####[facility] LABCLIA [id number] [address] [address] [place] CASE MANAGEMon 11-18-2024 CASE MANAGEM Normal [facility] CBC W Auto Differential pane l (Bld)on 11-18-2024 Basophils (Bld) [#/Vol] 10*3/uL Normal <0.11 [facility] Comment on above: Order Comment: Speci men Type: BLOOD SPECIMENOrdering Facility: [facility] Address: [address] [place] [address] Performed By: #### 5 7021-8 ####[facility] LABCLIA [id number] [facility] [place] [id number] [place] Basophils/100 WBC (Bld) 0.0 % Normal [facility] Comment on above: Order Comment: Speci men Type: BLOOD SPECIMENOrdering Facility: [facility] Address: [address] [place] [address] Performed By: #### 5 7021-8 ####[facility] LABCLIA [id number] [place] [address] [place] Differential cell count method Nom (Bld) Auto Normal [facility] Comment on above: Order Comment: Speci men Type: BLOOD SPECIMENOrdering Facility: [facility] Address: [address] [place] [address] Performed By: #### 5 7021-8 ####[facility] LABCLIA [id number] [place] [address] [place] Eosinophils (Bld) [#/Vol] 10*3/uL Normal <0.46 [facility] Comment on above: Order Comment: Speci men Type: BLOOD SPECIMENOrdering Facility: [facility] Address: [address] [place] [address] Performed By: #### 5 7021-8 ####[facility] LABCLIA [id number] [place] [address] [place] Eosinophils/100 WBC (Bld) 0.1 % Normal [facility] Comment on above: Order Comment: Speci men Type: BLOOD SPECIMENOrdering Facility: [facility] Address: [address] [place] [address] Performed By: #### 5 7021-8 ####[facility] LABCLIA [id number] [place] [address] [place] Erythrocyte distribution width (RBC) [Ratio] 16.7 % High 11.5-15.0 [facility] Comment on above: Order Comment: Speci men Type: BLOOD SPECIMENOrdering Facility: [facility] Address: [address] [place] [address] Performed By: #### 5 7021-8 ####[facility] LABIA [id number] [place] [address] [place] Hematocrit (Bld) [Volume fraction] 21.5 % Low 39.0-51.0 [facility] Comment on above: Order Comment: Speci men Type: BLOOD SPECIMENOrdering Facility: [facility] Address: [address] [place] [address] Performed By: #### 5 7021-8 ####[facility] LABIA [id number] [place] [address] [place] Hemoglobin (Bld) [Mass/Vol] 7.2 g/dL Low 13.0-17.0 [facility] Comment on above: Order Comment: Speci men Type: BLOOD SPECIMENOrdering Facility: [facility] Address: [address] [place] [address] Performed By: #### 5 7021-8 ####[facility] LABIA [id number] [place] [address] [place] Immature granulocytes (Bld) [#/Vol] 0.06 10*3/uL Normal <0.10 [facility] Comment on above: Order Comment: Speci men Type: BLOOD SPECIMENOrdering Facility: [facility] Address: [address] [place] [address] Performed By: #### 5 7021-8 ####[facility] LABIA [id number] [place] [address] [place] Immature granulocytes/100 WBC (Bld) 0.7 % Normal [facility] Comment on above: Order Comment: Speci men Type: BLOOD SPECIMENOrdering Facility: [facility] Address: [address] [place] [address] Performed By: #### 5 7021-8 ####[facility] LABCLIA [id number] [place] [address] [place] Lymphocytes (Bld) [#/Vol] 0.61 10*3/uL Low 1.00-4.00 [facility] Comment on above: Order Comment: Speci men Type: BLOOD SPECIMENOrdering Facility: [facility] Address: [address] [place] [address] Performed By: #### 5 7021-8 ####[facility] LABCLIA [id number] [place] [address] [place] Lymphocytes/100 WBC (Bld) 7.3 % Normal [facility] Comment on above: Order Comment: Speci men Type: BLOOD SPECIMENOrdering Facility: [facility] Address: [address] [place] [address] Performed By: #### 5 7021-8 ####[facility] LABCLIA [id number] [place] [address] [place] MCH (RBC) [Entitic mass] 30.9 pg Normal 26.0-34.0 [facility] Comment on above: Order Comment: Speci men Type: BLOOD SPECIMENOrdering Facility: [facility] Address: [address] [place] [address] Performed By: #### 5 7021-8 ####[facility] LABCLIA [id number] [place] [address] [place] MCHC (RBC) [Mass/Vol] 33.5 g/dL Normal 30.5-36.0 [facility] Comment on above: Order Comment: Speci men Type: BLOOD SPECIMENOrdering Facility: [facility] Address: [address] [place] [address] Performed By: #### 5 7021-8 ####[facility] LABCLIA [id number] [address] [place] [address] [place] MCV (RBC) [Entitic vol] 92.3 fL Normal 80.0-100.0 [facility] Comment on above: Order Comment: Speci men Type: BLOOD SPECIMENOrdering Facility: [facility] Address: [address] [place] [address] Performed By: #### 5 7021-8 ####[facility] LABCLIA [id number] [address], [facility]95 [place] Monocytes (Bld) [#/Vol] 0.72 10*3/uL Normal <0.87 [facility] Comment on above: Order Comment: Speci men Type: BLOOD SPECIMENOrdering Facility: [facility] Address: [address] [place] [address] Performed By: #### 5 7021-8 ####[facility] LABIA [id number] [address], [facility]95 [place] Monocytes/100 WBC (Bld) 8.7 % Normal C [facility] Comment on above: Order Comment: Speci men Type: BLOOD SPECIMENOrdering Facility: [facility] Address: [address] [place] [address] Performed By: #### 5 7021-8 ####[facility] LABCLIA [id number] [address] [place] [address] [place] Neutrophils (Bld) [#/Vol] 6.92 10*3/uL Normal 1.45-7.50 [facility] Comment on above: Order Comment: Speci men Type: BLOOD SPECIMENOrdering Facility: [facility] Address: [address] [place] [address] Performed By: #### 5 7021-8 ####[facility] LABIA [id number] [address] [address] [place] Neutrophils/100 WBC (Bld) 83.2 % Normal [facility] Comment on above: Order Comment: Speci men Type: BLOOD SPECIMENOrdering Facility: [facility] Address: [address] [place] [address] Performed By: #### 5 7021-8 ####[facility] LABCLIA [id number] [place] [address] [place] Nucleated RBC (Bld) [#/Vol] 10*3/uL Normal <0.01 [facility] Comment on above: Order Comment: Speci men Type: BLOOD SPECIMENOrdering Facility: [facility] Address: [address] [place] [address] Performed By: #### 5 7021-8 ####[facility] LABCLIA [id number] [place] [address] [place] Nucleated RBC/100 WBC (Bld) [Ratio] 0.0 /100 WBC Normal [facility] Comment on above: Order Comment: Speci men Type: BLOOD SPECIMENOrdering Facility: [facility] Address: [address] [place] [address] Performed By: #### 5 7021-8 ####[facility] LABCLIA [id number] [place] [address] [place] Platelet mean volume (Bld) [Entitic vol] 12.1 fL Normal 9.0-12.7 [facility] Comment on above: Order Comment: Speci men Type: BLOOD SPECIMENOrdering Facility: [facility] Address: [address] [place] [address] Performed By: #### 5 7021-8 ####[facility] LABCLIA [id number] [place] [address] [place] Platelets (Bld) [#/Vol] 76 10*3/uL Low 150-400 C [facility] Comment on above: Order Comment: Speci men Type: BLOOD SPECIMENOrdering Facility: [facility] Address: [address] [place] [address] Result Comment: No c lot detected. Performed By: #### 5 7021-8 ####[facility] LABCLIA [id number] [place] [address] [place] RBC (Bld) [#/Vol] 2.33 10*6/uL Low 4.20-6.00 [facility] Comment on above: Order Comment: Speci men Type: BLOOD SPECIMENOrdering Facility: [facility] Address: [address] [place] [address] Performed By: #### 5 7021-8 ####[facility] LABIA [id number] [place] [address] [place] WBC (Bld) [#/Vol] 8.32 10*3/uL Normal 3.70-11.00 [facility] Comment on above: Order Comment: Speci men Type: BLOOD SPECIMENOrdering Facility: [facility] Address: [address] [place] [address] Performed By: #### 5 7021-8 ####[facility] LABIA [id number] [place] [address] [place] CNCOon 11-18-2024 CNCO Letter Text Normal [facility] CNDSon 11-18-2024 CNDS Normal [facility] CNPNon 11-18-2024 CNPN Normal [facility] Fibrinogen PPP-mCncon 2024 Fibrinogen Coag (PPP) [Mass/Vol] 104 mg/dL Low 200-400 [facility] Comment on above: Order Comment: Speci men Type: BLOOD SPECIMENOrdering Facility: [facility] Address: [address] [place] [address] Performed By: #### 3 255-7, 99948-7 ####[facility] LABCLIA [id number] [place] [address] [place] Hepatic function 2000 panelo n 11-18-2024 Albumin [Mass/Vol] 2.6 g/dL Low 3.9-4.9 [facility] Comment on above: Order Comment: Speci men Type: BLOOD SPECIMENOrdering Facility: [facility] Address: [address] [place] [address] Performed By: #### 2 4321-2, 59446-5, 2777-1 ####[facility] LABCLIA [id number] [place] [address] [place] ALP [Catalytic activity/Vol] 245 U/L High 38-113 [facility] Comment on above: Order Comment: Speci men Type: BLOOD SPECIMENOrdering Facility: [facility] Address: [address] [place] [address] Performed By: #### 2 4321-2, 94776-2, 277-1 ####[facility] LABCLIA [id number] [place] [id number] [place] ALT [Catalytic activity/Vol] 31 U/L Normal 10-54 [facility] Comment on above: Order Comment: Speci men Type: BLOOD SPECIMENOrdering Facility: [facility] Address: [address] [place] [address] Performed By: #### 2 4321-2, 94614-1, 2776-1 ####[facility] LABCLIA [id number] [address] [address] [place] AST [Catalytic activity/Vol] 52 U/L High 14-40 [facility] Comment on above: Order Comment: Speci men Type: BLOOD SPECIMENOrdering Facility: [facility] Address: [address] [place] [address] Performed By: #### 2 4321-2, 64323-9, 277-1 ####[facility] LABCLIA [id number] [address] [address] [place] Bilirubin [Mass/Vol] 1.2 mg/dL Normal 0.2-1.3 [facility] Comment on above: Order Comment: Speci men Type: BLOOD SPECIMENOrdering Facility: [facility] Address: [address] [place] [address] Performed By: #### 2 4321-2, 38869-9, 27702-01 ####[facility] LABCLIA [id number] [place] [address] [place] Bilirubin.conjugated [Mass/Vol] 0.7 mg/dL High <0.3 [facility] Comment on above: Order Comment: Speci men Type: BLOOD SPECIMENOrdering Facility: [facility] Address: [address] [place] [address] Performed By: #### 2 4321-2, 90233-6, 27702-01 ####[facility] LABCLIA [id number] [place] [address] [place] Protein [Mass/Vol] 5.0 g/dL Low 6.3-8.0 [facility] Comment on above: Order Comment: Speci men Type: BLOOD SPECIMENOrdering Facility: [facility] Address: [address] [place] [address] Performed By: #### 2 4321-2, 17815-3, 27702-01 ####[facility] LABCLIA [id number] [place] [id number] [place] NURSING PROGon 11-18-2024 NURSING PROG Normal [facility] PT panel Coag (PPP)on 2024 INR Coag (PPP) [Relative time] 2.0 {INR} High 0.9-1.3 [facility] Comment on above: Order Comment: Speci men Type: BLOOD SPECIMENOrdering Facility: [facility] Address: [address] [place] [address] Result Comment: Sarah min K Antagonist (VKA) Therapeutic Range: INR 2 to 3 (Target INR of 2.5)Note: For patients treated with VKA drugs, such as warfarin, the [place] [employer] 2012 Guideline recommends [...] al. Chest 2012, 141:7S-47SNishbethel RA, et al. [facility] 2017, 70: 252-289 Performed By: #### 3 255-7, 01394-1 ####[facility] LABIA [id number] [place] [address] [place] PT Coag (PPP) [Time] 20.9 s High 9.7-13.0 [facility] Comment on above: Order Comment: Speci men Type: BLOOD SPECIMENOrdering Facility: [facility] Address: [address] [place] [address] Performed By: #### 3 255-7, 57211-8 ####[facility] INCIA [id number] [place] [address] [place] Phosphate SerPl-mCncon 11-18 Phosphate [Mass/Vol] 2.4 mg/dL Low 2.7-4.8 [facility] Comment on above: Order Comment: Speci men Type: BLOOD SPECIMENOrdering Facility: [facility] Address: [address] [place] [address] Performed By: #### 2 4321-2, 24217-8, 2777-1 ####[facility] INC[facility] [id number] [place] [address] [place] TYPE + SCREENon 11-18-2024 ABO O Normal [facility] Comment on above: Order Comment: Speci men Type: BLOOD SPECIMENOrdering Facility: [facility] Address: [address] [place] [address] Performed By: #### T SCR ####[facility] BLOOD BANKCLIA [id number] [place] [address] [place] Rh Nom (Bld) Positive Normal [facility] Comment on above: Order Comment: Speci men Type: BLOOD SPECIMENOrdering Facility: [facility] Address: [address] [place] [address] Performed By: #### T SCR ####[facility] BANKIA [id number] [place] [address] [place] TYPE AND SCREEN EXPIRATION 11/21/2024 23:59 Normal [facility] Comment on above: Order Comment: Speci men Type: BLOOD SPECIMENOrdering Facility: [facility] Address: [address] [place] [address] Performed By: #### T SCR ####[facility] BLOOD BANKIA [id number] [place] [address] [place] Urinalysis complete panel (U )on 11-18-2024 BACTERIA UL 1671.0 uL High Negative [facility] Comment on above: Order Comment: Speci men Type: URINE SPECIMENOrdering Facility: [facility] Address: [address] [place] [address] Performed By: #### 2 4356-8, 630-4 ####[facility] LABCLIA [id number] [address] [place] Bilirubin Ql (U) 2+ Abnormal Negative [facility] Comment on above: Order Comment: Speci men Type: URINE SPECIMENOrdering Facility: [facility] Address: [address] [place] [address] Result Comment: Sugg est correlation with clinical findings and serum bilirubin if clinically indicated. Performed By: #### 2 4356-8, 630-4 ####[facility] LABCLIA [id number] [address] [address] [place] CALCIUM OXALATE CRYSTALS (UA) Few Abnormal None Seen [facility] Comment on above: Order Comment: Speci men Type: URINE SPECIMENOrdering Facility: [facility] Address: [address] [place] [address] Performed By: #### 2 4356-8, 630-4 ####[facility] LABCLIA [id number] [address], [facility]95 [place] Clarity (Unsp spec) Turbid Abnormal Clear [facility] Comment on above: Order Comment: Speci men Type: URINE SPECIMENOrdering Facility: [facility] Address: [address] [place] [address] Performed By: #### 2 4356-8, 630-4 ####[facility] LABCLIA [id number] [place] [address] [place] Color (U) Red Abnormal Yellow [facility] Comment on above: Order Comment: Speci men Type: URINE SPECIMENOrdering Facility: [facility] Address: [address] [place] [address] Performed By: #### 2 68, 630-4 ####[facility] LABCLIA [id number] [address], [facility]95 [place] Epithelial cells LM.HPF (Urine sed) [#/Area] None Seen Normal [facility] Comment on above: Order Comment: Speci men Type: URINE SPECIMENOrdering Facility: [facility] Address: [address] [place] [address] Performed By: #### 2 4356-8, 630-4 ####[facility] LABCLIA [id number] [place] [id number] [place] Glucose Test strip (U) [Mass/Vol] Negative Normal Negative [facility] Comment on above: Order Comment: Speci men Type: URINE SPECIMENOrdering Facility: [facility] Address: [address] [place] [address] Performed By: #### 2 4356-8, 630-4 ####[facility] LABCLIA [id number] [place] [address] [place] Hemoglobin Ql (U) 2+ Abnormal Negative [facility] Comment on above: Order Comment: Speci men Type: URINE SPECIMENOrdering Facility: [facility] Address: [address] [place] [address] Performed By: #### 2 4356-8, 630-4 ####[facility] LABCLIA [id number] [place] [address] [place] Hyaline casts (Urine sed) [#/Area] 0 /[LPF] Normal 0 /LPF [facility] Comment on above: Order Comment: Speci men Type: URINE SPECIMENOrdering Facility: [facility] Address: [address] [place] [address] Performed By: #### 2 4356-8, 630-4 ####[facility] LABCLIA [id number] [place] [address] [place] Ketones Ql (U) Negative Normal Negative [facility] Comment on above: Order Comment: Speci men Type: URINE SPECIMENOrdering Facility: [facility] Address: [address] [place] [address] Performed By: #### 2 4356-8, 630-4 ####[facility] LABCLIA [id number] [place] [address] [place] Leukocyte esterase Test strip Ql (U) 3+ Abnormal Negative [facility] Comment on above: Order Comment: Speci men Type: URINE SPECIMENOrdering Facility: [facility] Address: [address] [place] [address] Performed By: #### 2 4356-8, 630-4 ####[facility] LABCLIA [id number] [place] [id number] [place] Nitrite Ql (U) Negative Normal Negative [facility] Comment on above: Order Comment: Speci men Type: URINE SPECIMENOrdering Facility: [facility] Address: [address] [place] [address] Result Comment: Resu lt rechecked. Performed By: #### 2 4356-8, 630-4 ####[facility] LABCLIA [id number] [address] [place] [address] [place] pH (U) 5.0 [pH] Normal <8.5 [facility] Comment on above: Order Comment: Speci men Type: URINE SPECIMENOrdering Facility: [facility] Address: [address] [place] [address] Performed By: #### 2 4356-8, 630-4 ####[facility] LABIA [id number] [address], [place] [address] [place] Protein (U) [Mass/Vol] 2+ Abnormal Negative [facility] Comment on above: Order Comment: Speci men Type: URINE SPECIMENOrdering Facility: [facility] Address: [address] [place] [address] Performed By: #### 2 4356-8, 630-4 ####[facility] LABIA [id number] [address], [place] [address] [place] RBC LM.HPF (Urine sed) [#/Area] /[HPF] Abnormal 0-2 /HPF [facility] Comment on above: Order Comment: Speci men Type: URINE SPECIMENOrdering Facility: [facility] Address: [address] [place] [address] Performed By: #### 2 4356-8, 630-4 ####[facility] LABIA [id number] [place] [id number] [place] Specific gravity (U) [Rel density] 1.021 Normal 1.005-1.030 [facility] Comment on above: Order Comment: Speci men Type: URINE SPECIMENOrdering Facility: [facility] Address: [address] [place], [place] [address] Performed By: #### 2 4356-8, 630-4 ####[facility] LABIA [id number] [place] [address] [place] Urobilinogen Ql (U) 0.2 EU/dL Normal 0.2-1.0 EU/dL [facility] Comment on above: Order Comment: Speci men Type: URINE SPECIMENOrdering Facility: [facility] Address: [address] [place] [address] Performed By: #### 2 4356-8, 630-4 ####[facility] [id number] [place] [address] [place] WBC LM.HPF (Urine sed) [#/Area] /[HPF] Abnormal 0-5 /HPF [facility] Comment on above: Order Comment: Speci men Type: URINE SPECIMENOrdering Facility: [facility] Address: [address] [place] [address] Performed By: #### 2 4356-8, 630-4 ####[facility] [id number] [place] [address] [place] Yeast.budding LM.HPF (Urine sed) [#/Area] Present Abnormal None Seen [facility] Comment on above: Order Comment: Speci men Type: URINE SPECIMENOrdering Facility: [facility] Address: [address] [place] [address] Performed By: #### 2 4356-8, 630-4 ####[facility] [id number] [place] [id number] [place] Basic metabolic 2000 panelon 11-17-2024 Anion gap [Moles/Vol] 10 mmol/L Normal 8-15 [facility] Comment on above: Order Comment: Speci men Type: BLOOD SPECIMENOrdering Facility: [facility] Address: [address] [place] [address] Performed By: #### 2 4321-2, 24405-0, 2776-08 ####[facility] LABCLIA [id number] [address] [address] [place] Calcium [Mass/Vol] 8.9 mg/dL Normal 8.5-10.2 [facility] Comment on above: Order Comment: Speci men Type: BLOOD SPECIMENOrdering Facility: [facility] Address: [address] [place] [address] Performed By: #### 2 4321-2, 20872-5, 2776-08 ####[facility] LABCLIA [id number] [place] [id number] [place] Chloride [Moles/Vol] 105 mmol/L Normal 98-107 [facility] Comment on above: Order Comment: Speci men Type: BLOOD SPECIMENOrdering Facility: [facility] Address: [address] [place] [address] Performed By: #### 2 432-2, 26661-4, 2776-08 ####[facility] LABCLIA [id number] [place] [id number] [place] CO2 [Moles/Vol] 17 mmol/L Low 22-30 [facility] Comment on above: Order Comment: Speci men Type: BLOOD SPECIMENOrdering Facility: [facility] Address: [address] [place] [address] Performed By: #### 2 432-2, 00281-6, 2776-08 ####[facility] LABCLIA [id number] [address] [address] [place] Creatinine [Mass/Vol] 0.77 mg/dL Normal 0.73-1.22 [facility] Comment on above: Order Comment: Speci men Type: BLOOD SPECIMENOrdering Facility: [facility] Address: [address] [place], [place] [address] Performed By: #### 2 4321-2, 52099-7, 2776- ####[facility] LABCLIA [id number] [place] [address] [place] Creatinine and Glomerular filtration rate.predicted panel (S/P/Bld) 104 mL/min/1.73m??? Normal >=60 [facility] Comment on above: Order Comment: Ezekiel ramirez Type: BLOOD SPECIMENOrdering Facility: [facility] Address: [address] [place] [address] Result Comment: Patric mated Glomerular Filtration Rate [...] actual GFR. Performed By: #### 2 4321-2, 73796-5, 2777-1 ####[facility] [id number] [place] [address] [place] Glucose [Mass/Vol] 291 mg/dL High 74-99 [facility] Comment on above: Order Comment: Ezekiel ramirez Type: BLOOD SPECIMENOrdering Facility: [facility] Address: [address] [place] [address] Result Comment: The [place] [employer] (ADA) provides guidance for cutoff [...] Standards of Medical Care in Diabetes 2016, [place] [employer]. Diabetes Care. 2016.39(Suppl 1). Performed By: #### 2 4321-2, 60300-7, 2777-1 ####[facility] LABIA [id number] [place] [address] [place] Potassium [Moles/Vol] 4.5 mmol/L Normal 3.7-5.1 [facility] Comment on above: Order Comment: Speci men Type: BLOOD SPECIMENOrdering Facility: [facility] Address: [address] [place] [address] Performed By: #### 2 4321-2, 54482-6, 2777-1 ####[facility] LABCLIA [id number] [place] [address] [place] Sodium [Moles/Vol] 132 mmol/L Low 136-144 [facility] Comment on above: Order Comment: Speci men Type: BLOOD SPECIMENOrdering Facility: [facility] Address: [address] [place] [address] Performed By: #### 2 4321-2, 43545-1, 2777-1 ####[facility] LABCLIA [id number] [place] [address] [place] Urea nitrogen [Mass/Vol] 9 mg/dL Normal 9-24 [facility] Comment on above: Order Comment: Speci men Type: BLOOD SPECIMENOrdering Facility: [facility] Address: [address] [place] [address] Performed By: #### 2 4321-2, 90547-0, 2777-1 ####[facility] LABCLIA [id number] [place] [id number] [place] CASE MANAGEMon 11-17-2024 CASE MANAGEM Normal [facility] CBC W Auto Differential pane l (Bld)on 11-17-2024 Basophils (Bld) [#/Vol] 10*3/uL Normal <0.11 C [facility] Comment on above: Order Comment: Speci men Type: BLOOD SPECIMENOrdering Facility: [facility] Address: [address] [place] [address] Performed By: #### 5 7021-8 ####[facility] LABCLIA [id number] [place] [address] [place] Basophils/100 WBC (Bld) 0.0 % Normal [facility] Comment on above: Order Comment: Speci men Type: BLOOD SPECIMENOrdering Facility: [facility] Address: [address] [place] [address] Performed By: #### 5 7021-8 ####[facility] LABCLIA [id number] [place] [address] [place] Differential cell count method Nom (Bld) Auto Normal [facility] Comment on above: Order Comment: Speci men Type: BLOOD SPECIMENOrdering Facility: [facility] Address: [address] [place] [address] Performed By: #### 5 7021-8 ####[facility] LABCLIA [id number] [place] [address] [place] Eosinophils (Bld) [#/Vol] 10*3/uL Normal <0.46 [facility] Comment on above: Order Comment: Speci men Type: BLOOD SPECIMENOrdering Facility: [facility] Address: [address] [place] [address] Performed By: #### 5 7021-8 ####[facility] LABCLIA [id number] [address] [place] Eosinophils/100 WBC (Bld) 0.0 % Normal [facility] Comment on above: Order Comment: Speci men Type: BLOOD SPECIMENOrdering Facility: [facility] Address: [address] [place] [address] Performed By: #### 5 7021-8 ####[facility] LABCLIA [id number] [place] [address] [place] Erythrocyte distribution width (RBC) [Ratio] 16.9 % High 11.5-15.0 [facility] Comment on above: Order Comment: Speci men Type: BLOOD SPECIMENOrdering Facility: [facility] Address: [address] [place] [address] Performed By: #### 5 7021-8 ####[facility] LABCLIA [id number] [place] [address] [place] Hematocrit (Bld) [Volume fraction] 22.7 % Low 39.0-51.0 [facility] Comment on above: Order Comment: Speci men Type: BLOOD SPECIMENOrdering Facility: [facility] Address: [address] [place] [address] Performed By: #### 5 7021-8 ####[facility] LABIA [id number] [place] [address] [place] Hemoglobin (Bld) [Mass/Vol] 7.7 g/dL Low 13.0-17.0 [facility] Comment on above: Order Comment: Speci men Type: BLOOD SPECIMENOrdering Facility: [facility] Address: [address] [place] [address] Performed By: #### 5 7021-8 ####[facility] LABIA [id number] [place] [address] [place] Immature granulocytes (Bld) [#/Vol] 0.03 10*3/uL Normal <0.10 [facility] Comment on above: Order Comment: Speci men Type: BLOOD SPECIMENOrdering Facility: [facility] Address: [address] [place] [address] Performed By: #### 5 7021-8 ####[facility] LABCLIA [id number] [place] [address] [place] Immature granulocytes/100 WBC (Bld) 0.9 % Normal [facility] Comment on above: Order Comment: Speci men Type: BLOOD SPECIMENOrdering Facility: [facility] Address: [address] [place] [address] Performed By: #### 5 7021-8 ####[facility] LABCLIA [id number] [place] [address] [place] Lymphocytes (Bld) [#/Vol] 0.28 10*3/uL Low 1.00-4.00 [facility] Comment on above: Order Comment: Speci men Type: BLOOD SPECIMENOrdering Facility: [facility] Address: [address] [place] [address] Performed By: #### 5 7021-8 ####[facility] LABCLIA [id number] [place] [address] [place] Lymphocytes/100 WBC (Bld) 8.3 % Normal [facility] Comment on above: Order Comment: Speci men Type: BLOOD SPECIMENOrdering Facility: [facility] Address: [address] [place] [address] Performed By: #### 5 7021-8 ####[facility] LABCLIA [id number] [place] [address] [place] MCH (RBC) [Entitic mass] 31.7 pg Normal 26.0-34.0 [facility] Comment on above: Order Comment: Speci men Type: BLOOD SPECIMENOrdering Facility: [facility] Address: [address] [place] [address] Performed By: #### 5 7021-8 ####[facility] LABCLIA [id number] [place] [address] [place] MCHC (RBC) [Mass/Vol] 33.9 g/dL Normal 30.5-36.0 [facility] Comment on above: Order Comment: Speci men Type: BLOOD SPECIMENOrdering Facility: [facility] Address: [address] [place] [address] Performed By: #### 5 7021-8 ####[facility] LABCLIA [id number] [place] [address] [place] MCV (RBC) [Entitic vol] 93.4 fL Normal 80.0-100.0 C [facility] Comment on above: Order Comment: Speci men Type: BLOOD SPECIMENOrdering Facility: [facility] Address: [address] [place] [address] Performed By: #### 5 7021-8 ####[facility] LABCLIA [id number] [place] [id number] [place] Monocytes (Bld) [#/Vol] 0.17 10*3/uL Normal <0.87 [facility] Comment on above: Order Comment: Speci men Type: BLOOD SPECIMENOrdering Facility: [facility] Address: [address] [place] [address] Performed By: #### 5 7021-8 ####[facility] LABCLIA [id number] [place] [address] [place] Monocytes/100 WBC (Bld) 5.0 % Normal [facility] Comment on above: Order Comment: Speci men Type: BLOOD SPECIMENOrdering Facility: [facility] Address: [address] [place] [address] Performed By: #### 5 7021-8 ####[facility] LABCLIA [id number] [place] [address] [place] Neutrophils (Bld) [#/Vol] 2.89 10*3/uL Normal 1.45-7.50 [facility] Comment on above: Order Comment: Speci men Type: BLOOD SPECIMENOrdering Facility: [facility] Address: [address] [place] [address] Performed By: #### 5 7021-8 ####[facility] LABCLIA [id number] [place] [id number] [place] Neutrophils/100 WBC (Bld) 85.8 % Normal [facility] Comment on above: Order Comment: Speci men Type: BLOOD SPECIMENOrdering Facility: [facility] Address: [address] [place] [address] Performed By: #### 5 7021-8 ####[facility] LABCLIA [id number] [place] [address] [place] Nucleated RBC (Bld) [#/Vol] 10*3/uL Normal <0.01 [facility] Comment on above: Order Comment: Speci men Type: BLOOD SPECIMENOrdering Facility: [facility] Address: [address] [place] [address] Performed By: #### 5 7021-8 ####[facility] LABIA [id number] [place] [address] [place] Nucleated RBC/100 WBC (Bld) [Ratio] 0.0 /100 WBC Normal [facility] Comment on above: Order Comment: Speci men Type: BLOOD SPECIMENOrdering Facility: [facility] Address: [address] [place] [address] Performed By: #### 5 7021-8 ####[facility] [id number] [place] [address] [place] Platelet mean volume (Bld) [Entitic vol] 12.0 fL Normal 9.0-12.7 [facility] Comment on above: Order Comment: Speci men Type: BLOOD SPECIMENOrdering Facility: [facility] Address: [address] [place] [address] Performed By: #### 5 7021-8 ####[facility] LABIA [id number] [place] [address] [place] Platelets (Bld) [#/Vol] 57 10*3/uL Low 150-400 C [facility] Comment on above: Order Comment: Speci men Type: BLOOD SPECIMENOrdering Facility: [facility] Address: [address] [place] [address] Performed By: #### 5 7021-8 ####[facility] LABIA [id number] [place] [id number] [place] RBC (Bld) [#/Vol] 2.43 10*6/uL Low 4.20-6.00 [facility] Comment on above: Order Comment: Speci men Type: BLOOD SPECIMENOrdering Facility: [facility] Address: [address] [place] [address] Performed By: #### 5 7021-8 ####[facility] LABCLIA [id number] [place] [address] [place] WBC (Bld) [#/Vol] 3.37 10*3/uL Low 3.70-11.00 [facility] Comment on above: Order Comment: Speci men Type: BLOOD SPECIMENOrdering Facility: [facility] Address: [address] [place] [address] Performed By: #### 5 7021-8 ####[facility] LABIA [id number] [place] [address] [place] CONSULT PROGon 11-17-2024 CONSULT PROG Normal [facility] Fact Xa PPP-aCncon Coagulation factor X activated act Coag Qn (PPP) <0.10 Normal <0.10 [facility] Comment on above: Order Comment: Speci men Type: BLOOD SPECIMENOrdering Facility: [facility] Address: [address] [place] [address] Result Comment: The recommended therapeutic range for treatment of venous and arterial thrombosis with intravenous unfractionated heparin is an anti Xa activity level of 0.3 to 0.7 IU/mL. In patients with concomitant therapy with thrombolytic agents and/or platelet glycoprotein IIb/IIIa antagonists, the recommended therapeutic range is an anti Xa activity level of 0.2 to 0.5 IU/mL. Performed By: #### 3 217-7 ####[facility] LABIA [id number] [place] [address] [place] Fibrinogen PPP-mCncon 2024 Fibrinogen Coag (PPP) [Mass/Vol] 114 mg/dL Low 200-400 [facility] Comment on above: Order Comment: Speci men Type: BLOOD SPECIMENOrdering Facility: [facility] Address: [address] [place] [address] Performed By: #### 3 255-7, 42640-5 ####[facility] LABIA [id number] [place] [address] [place] Hepatic function 2000 panelo n 11-17-2024 Albumin [Mass/Vol] 2.7 g/dL Low 3.9-4.9 [facility] Comment on above: Order Comment: Speci men Type: BLOOD SPECIMENOrdering Facility: [facility] Address: [address] [place] [address] Performed By: #### 2 4321-2, 46621-1, 2777-1 ####[facility] LABIA [id number] [place] [address] [place] ALP [Catalytic activity/Vol] 276 U/L High 38-113 [facility] Comment on above: Order Comment: Speci men Type: BLOOD SPECIMENOrdering Facility: [facility] Address: [address] [place] [address] Performed By: #### 2 4321-2, 04208-4, 2777-1 ####[facility] LABIA [id number] [address] [place] ALT [Catalytic activity/Vol] 35 U/L Normal 10-54 [facility] Comment on above: Order Comment: Speci men Type: BLOOD SPECIMENOrdering Facility: [facility] Address: [address] [place] [address] Performed By: #### 2 4321-2, 05091-7, 2777-1 ####[facility] LABIA [id number] [place] [address] [place] AST [Catalytic activity/Vol] 80 U/L High 14-40 [facility] Comment on above: Order Comment: Speci men Type: BLOOD SPECIMENOrdering Facility: [facility] Address: [address] [place] [address] Performed By: #### 2 4321-2, 23733-8, 2777- ####[facility] LABCLIA [id number] [place] [id number] [place] Bilirubin [Mass/Vol] 1.8 mg/dL High 0.2-1.3 [facility] Comment on above: Order Comment: Speci men Type: BLOOD SPECIMENOrdering Facility: [facility] Address: [address] [place] [address] Performed By: #### 2 4321-2, 88775-6, 27702-01 ####[facility] LABCLIA [id number] [place] [address] [place] Bilirubin.conjugated [Mass/Vol] 1.0 mg/dL High <0.3 [facility] Comment on above: Order Comment: Speci men Type: BLOOD SPECIMENOrdering Facility: [facility] Address: [address] [place] [address] Performed By: #### 2 4321-2, 40138-5, 27702-01 ####[facility] LABIA [id number] [place] [address] [place] Protein [Mass/Vol] 5.2 g/dL Low 6.3-8.0 [facility] Comment on above: Order Comment: Speci men Type: BLOOD SPECIMENOrdering Facility: [facility] Address: [address] [place] [address] Performed By: #### 2 4321-2, 83043-6, 2777 ####[facility] LABIA [id number] [address] [address] [place] NUTRITIONon 11-17-2024 NUTRITION Normal [facility] PSA/PROSTATE SPECIFIC ANTIGE N SCREENINGon 11-17-2024 Prostate specific Ag [Mass/Vol] 0.52 ng/mL Normal <2.60 [facility] Comment on above: Order Comment: Speci men Type: BLOOD SPECIMENOrdering Facility: [facility] Address: [address] [place] [address] Result Comment: Tota l PSA test methodology used is the Electrochemiluminescence Immunoassay by [employer]. Total PSA values by differing methodologies cannot be interchanged. Performed By: #### P SAS1 ####[facility] LABCLIA [id number] [place] [address] [place] PT panel Coag (PPP)on 2024 INR Coag (PPP) [Relative time] 2.0 {INR} High 0.9-1.3 [facility] Comment on above: Order Comment: Speci men Type: BLOOD SPECIMENOrdering Facility: [facility] Address: [address] [place] [address] Result Comment: Sarah min K Antagonist (VKA) Therapeutic Range: INR 2 to 3 (Target INR of 2.5)Note: For patients treated with VKA drugs, such as warfarin, the [employer] [employer] 2012 Guideline recommends [...] al. Chest 2012, 141:7S-47SNishimura RA, et al. [facility] 2017, 70: 252-289 Performed By: #### 3 255-7, 74418-8 ####[facility] LABIA [id number] [place] [address] [place] PT Coag (PPP) [Time] 20.6 s High 9.7-13.0 [facility] Comment on above: Order Comment: Speci men Type: BLOOD SPECIMENOrdering Facility: [facility] Address: [address] [place] [address] Performed By: #### 3 255-7, 35728-5 ####[facility] LABCLIA [id number] [place] [address] [place] PTT, ANTICOAGULANT THERAPYon 11-17-2024 aPTT Coag (PPP) [Time] 41.6 s High 23.0-32.4 [facility] Comment on above: Order Comment: Speci men Type: BLOOD SPECIMENOrdering Facility: [facility] Address: [address] [place] [address] Performed By: #### P TTAC ####[facility] LABIA [id number] [place] [address] [place] Phosphate SerPl-mCncon 11-17 Phosphate [Mass/Vol] 1.9 mg/dL Low 2.7-4.8 [facility] Comment on above: Order Comment: Speci men Type: BLOOD SPECIMENOrdering Facility: [facility] Address: [address] [place] [address] Performed By: #### 2 4321-2, 58221-4, 2777-1 ####[facility] LABIA [id number] [address] [place] THERAPY NTon 11-17-2024 THERAPY NT Normal [facility] aPTT PPPon 11-17-2024 aPTT Coag (PPP) [Time] s High 23.0-32.4 [facility] Comment on above: Order Comment: Speci men Type: BLOOD SPECIMENOrdering Facility: [facility] Address: [address] [place] [address] Result Comment: Resu lt rechecked.Sample checked for clot. Performed By: #### 1 4979-9, PTTAC ####[facility] LABCLIA [id number] [place] [address] [place] ANES POSTPROC EVALon 11-16-2 025 ANES POSTPROC EVAL Normal [facility] ANES PRE-OPon 11-16-2024 ANES PRE-OP Normal [facility] Albumin Fld-mCncon 5 Albumin (Body fld) [Mass/Vol] 0.2 g/dL Normal See Comment [facility] Comment on above: Order Comment: Speci men Type: FLUID SPECIMENOrdering Facility: [facility] Address: [address] [place] [address] Result Comment: Body Fluid Albumin may be [...] document C49A. Joe PA: Clinical Laboratory Standards [place]: 2007.2. Amy JACKSON. Serum to ascites albumin gradient. UpToDate. 2015. Accessed on November 15, 2015.This test was developed, and its performance characteristics determined by the [facility] Department of Pathology and Laboratory Medicine. It has not been cleared or approved by the FDA. The [facility] Department of Pathology and Laboratory Medicine is regulated under CLIA as qualified to perform high-complexity testing. This test is used for clinical purposes. It should not be regarded as investigational or for research. Performed By: #### 1 795-4, 2881-1, 1747-5 ####[facility] LABCLIA [id number] [facility] [id number] [place], [place] [address] [place] Fluid Nom (Body fld) Ascites Fluid Normal C [facility] Comment on above: Order Comment: Speci men Type: FLUID SPECIMENOrdering Facility: [facility] Address: [address] [place], [place] [address] Performed By: #### 1 795-4, 2881-1, 1747-5 ####[facility] LABCLIA [id number] [facility]ITAL[facility] [address] [place] Amylase Fld-cCncon 5 Amylase (Body fld) [Catalytic activity/Vol] 17 U/L Normal See Comment [facility] Comment on above: Order Comment: Speci men Type: FLUID SPECIMENOrdering Facility: [facility] Address: [address] [place] [address] Result Comment: PLEU RAL FLUIDS:Amylase measurement in [...] document C49-A. Joe PA: Clinical Laboratory Standards [place]; 2007.3. Kelby CONCEPCION, John BRAR, Star DELUNA. Use of cyst fluid CEA, CA19-9, and amylase for evaluation of pancreatic lesions. Clinical Biochemistry. 2009;42:3435-4351.This test was developed, and its performance characteristics determined by the [facility] Department of Pathology and Laboratory Medicine. It has not been cleared or approved by the FDA. The [facility] Department of Pathology and Laboratory Medicine is regulated under CLIA as qualified to perform high-complexity testing. This test is used for clinical purposes. It should not be regarded as investigational or for research. Performed By: #### 1 795-4, 2881-1, 1747-5 ####[facility] LABCLIA [id number] [address] [place] [address] [place] BODY FLUID CELL COUNTon 04-1 Clarity (Unsp spec) Clear Normal Clear [facility] Comment on above: Order Comment: Speci men Type: FLUID SPECIMENOrdering Facility: [facility] Address: [address] [place] [address] Performed By: #### C CBF, [id number] ####[facility] LABCLIA [id number] [address] [place] [address] [place] Color (Body fld) Yellow Normal Yellow [facility] Comment on above: Order Comment: Speci men Type: FLUID SPECIMENOrdering Facility: [facility] Address: [address] [place] [address] Performed By: #### C CBF, [id number] ####[facility] LABCLIA [id number] [address], [place] [address] [place] RBC Manual cnt (Body fld) [#/Vol] 3000 /uL High <2000 [facility] Comment on above: Order Comment: Speci men Type: FLUID SPECIMENOrdering Facility: [facility] Address: [address] [place] [address] Performed By: #### C CBF, [id number] ####[facility] LABCLIA [id number] [place] [address] [place] Specimen source Nom (Body fld) Ascites Fluid Normal [facility] Comment on above: Order Comment: Speci men Type: FLUID SPECIMENOrdering Facility: [facility] Address: [address] [place] [address] Performed By: #### C CBF, [id number] ####[facility] LABCLIA [id number] [address] [place] [address] [place] WBC Manual cnt (Body fld) [#/Vol] 58 /uL Normal <1000 [facility] Comment on above: Order Comment: Speci men Type: FLUID SPECIMENOrdering Facility: [facility] Address: [address] [place] [address] Performed By: #### C JOSE [id number] ####[facility] LABCLIA [id number] [address] [address] [place] Bacteria Fld Culton 11-17-19 25 Bacteria identified Cx Nom (Body fld) CULTURE, BODY FLD: No growth GRAM STAIN: No organisms seen Few Polymorphonuclear leukocytes Gram stain performed on cytospun specimen. Gram stain from primary specimen Normal [facility] Comment on above: Performed By: #### 6 35-3, 611-4 ####[facility] LABCLIA [id number] [address] [address] [place] Bacteria Spec Anaerobe Culto n 11-16-2024 Bacteria identified Anaer cx Nom (Unsp spec) Negative Normal [facility] Comment on above: Performed By: #### 6 35-3, 611-4 ####[facility] LABCLIA [id number] [address] [address] [place] Basic metabolic 2000 panelon 11-16-2024 Anion gap [Moles/Vol] 10 mmol/L Normal - [facility] Comment on above: Order Comment: Speci men Type: BLOOD SPECIMENOrdering Facility: [facility] Address: [address] [place] [address] Performed By: #### 2 4321-2, 25384-1, 2777-1 ####[facility] LABCLIA [id number] [address] [address] [place] Calcium [Mass/Vol] 8.4 mg/dL Low 8.5-10.2 [facility] Comment on above: Order Comment: Speci men Type: BLOOD SPECIMENOrdering Facility: [facility] Address: [address] [place] [address] Performed By: #### 2 4321-2, 59067-0, 2777-1 ####[facility] LABIA [id number] [address] [address] [place] Chloride [Moles/Vol] 102 mmol/L Normal 98-107 [facility] Comment on above: Order Comment: Speci men Type: BLOOD SPECIMENOrdering Facility: [facility] Address: [address] [place] [address] Performed By: #### 2 4321-2, 30798-8, 277- ####[facility] [facility]IA [id number] [address] [address] [place] CO2 [Moles/Vol] 18 mmol/L Low 22-30 [facility] Comment on above: Order Comment: Speci men Type: BLOOD SPECIMENOrdering Facility: [facility] Address: [address] [place] [address] Performed By: #### 2 4321-2, 93024-5, 27702-01 ####[facility], INCIA [id number] [address] [address] [place] Creatinine [Mass/Vol] 0.73 mg/dL Normal 0.73-1.22 [facility] Comment on above: Order Comment: Speci men Type: BLOOD SPECIMENOrdering Facility: [facility] Address: [address] [place] [address] Performed By: #### 2 4321-2, 75409-5, 27702-01 ####[facility] [id number] [address] [address] [place] Creatinine and Glomerular filtration rate.predicted panel (S/P/Bld) 105 mL/min/1.73m??? Normal >=60 [facility] Comment on above: Order Comment: Speci men Type: BLOOD SPECIMENOrdering Facility: [facility] Address: [address] [place] [address] Result Comment: Patric mated Glomerular Filtration Rate [...] actual GFR. Performed By: #### 2 4321-2, 92712-2, 2776- ####[facility] LABCLIA [id number] [address] [address] [place] Glucose [Mass/Vol] 181 mg/dL High 74-99 [facility] Comment on above: Order Comment: Ezekiel ramirez Type: BLOOD SPECIMENOrdering Facility: [facility] Address: [address] [place] [address] Result Comment: The [place] [employer] (ADA) provides guidance for cutoff [...] Standards of Medical Care in Diabetes 2016, [place] [employer]. Diabetes Care. 2016.39(Suppl 1). Performed By: #### 2 4321-2, 07235-1, 2776-08 ####[facility] LABCLIA [id number] [address] [address] [place] Potassium [Moles/Vol] 3.6 mmol/L Low 3.7-5.1 [facility] Comment on above: Order Comment: Ezekiel ramirez Type: BLOOD SPECIMENOrdering Facility: [facility] Address: [address] [place] [address] Performed By: #### 2 4321-2, 88202-9, 2776- ####[facility] LABCLIA [id number] [place] [address] [place] Sodium [Moles/Vol] 130 mmol/L Low 136-144 [facility] Comment on above: Order Comment: Speci men Type: BLOOD SPECIMENOrdering Facility: [facility] Address: [address] [place] [address] Performed By: #### 2 4321-2, 09800-6, 2777-1 ####[facility] LABCLIA [id number] [place] [address] [place] Urea nitrogen [Mass/Vol] 9 mg/dL Normal 9-24 [facility] Comment on above: Order Comment: Speci men Type: BLOOD SPECIMENOrdering Facility: [facility] Address: [address] [place] [address] Performed By: #### 2 4321-2, 38554-5, 2777-1 ####[facility] LABCLIA [id number] [place] [address] [place] CBC W Auto Differential pane l (Bld)on 11-16-2024 Basophils (Bld) [#/Vol] 0.05 10*3/uL Normal <0.11 [facility] Comment on above: Order Comment: Speci men Type: BLOOD SPECIMENOrdering Facility: [facility] Address: [address] [place] [address] Performed By: #### 5 7021-8 ####[facility] LABCLIA [id number] [place] [address] [place] Basophils/100 WBC (Bld) 0.8 % Normal C [facility] Comment on above: Order Comment: Speci men Type: BLOOD SPECIMENOrdering Facility: [facility] Address: [address] [place] [address] Performed By: #### 5 7021-8 ####[facility] LABCLIA [id number] [place] [address] [place] Differential cell count method Nom (Bld) Auto Normal [facility] Comment on above: Order Comment: Speci men Type: BLOOD SPECIMENOrdering Facility: [facility] Address: [address] [place] [address] Performed By: #### 5 7021-8 ####[facility] LABCLIA [id number] [place] [address] [place] Eosinophils (Bld) [#/Vol] 0.22 10*3/uL Normal <0.46 [facility] Comment on above: Order Comment: Speci men Type: BLOOD SPECIMENOrdering Facility: [facility] Address: [address] [place] [address] Performed By: #### 5 7021-8 ####[facility] [id number] [place] [address] [place] Eosinophils/100 WBC (Bld) 3.6 % Normal [facility] Comment on above: Order Comment: Speci men Type: BLOOD SPECIMENOrdering Facility: [facility] Address: [address] [place] [address] Performed By: #### 5 7021-8 ####[facility] [id number] [place] [address] [place] Erythrocyte distribution width (RBC) [Ratio] 16.7 % High 11.5-15.0 [facility] Comment on above: Order Comment: Speci men Type: BLOOD SPECIMENOrdering Facility: [facility] Address: [address] [place] [address] Performed By: #### 5 7021-8 ####[facility] [id number] [address] [place] Hematocrit (Bld) [Volume fraction] 24.0 % Low 39.0-51.0 [facility] Comment on above: Order Comment: Speci men Type: BLOOD SPECIMENOrdering Facility: [facility] Address: [address] [place] [address] Performed By: #### 5 7021-8 ####[facility] LABCLIA [id number] [place] [address] [place] Hemoglobin (Bld) [Mass/Vol] 8.3 g/dL Low 13.0-17.0 [facility] Comment on above: Order Comment: Speci men Type: BLOOD SPECIMENOrdering Facility: [facility] Address: [address] [place] [address] Performed By: #### 5 7021-8 ####[facility] LABCLIA [id number] [address], [place] [address] [place] Immature granulocytes (Bld) [#/Vol] 0.05 10*3/uL Normal <0.10 [facility] Comment on above: Order Comment: Speci men Type: BLOOD SPECIMENOrdering Facility: [facility] Address: [address] [place] [address] Performed By: #### 5 7021-8 ####[facility] [id number] [place] [address] [place] Immature granulocytes/100 WBC (Bld) 0.8 % Normal [facility] Comment on above: Order Comment: Speci men Type: BLOOD SPECIMENOrdering Facility: [facility] Address: [address] [place] [address] Performed By: #### 5 7021-8 ####[facility] [id number] [place] [address] [place] Lymphocytes (Bld) [#/Vol] 0.75 10*3/uL Low 1.00-4.00 [facility] Comment on above: Order Comment: Speci men Type: BLOOD SPECIMENOrdering Facility: [facility] Address: [address] [place] [address] Performed By: #### 5 7021-8 ####[facility] [id number] [place] [address] [place] Lymphocytes/100 WBC (Bld) 12.4 % Normal [facility] Comment on above: Order Comment: Speci men Type: BLOOD SPECIMENOrdering Facility: [facility] Address: [address] [place] [address] Performed By: #### 5 7021-8 ####[facility] [id number] [place] [address] [place] MCH (RBC) [Entitic mass] 31.9 pg Normal 26.0-34.0 [facility] Comment on above: Order Comment: Speci men Type: BLOOD SPECIMENOrdering Facility: [facility] Address: [address] [place] [address] Performed By: #### 5 7021-8 ####[facility] [id number] [place] [address] [place] MCHC (RBC) [Mass/Vol] 34.6 g/dL Normal 30.5-36.0 [facility] Comment on above: Order Comment: Speci men Type: BLOOD SPECIMENOrdering Facility: [facility] Address: [address] [place] [address] Performed By: #### 5 7021-8 ####[facility] [id number] [place] [address] [place] MCV (RBC) [Entitic vol] 92.3 fL Normal 80.0-100.0 C [facility] Comment on above: Order Comment: Speci men Type: BLOOD SPECIMENOrdering Facility: [facility] Address: [address] [place] [address] Performed By: #### 5 7021-8 ####[facility] [id number] [place] [address] [place] Monocytes (Bld) [#/Vol] 0.68 10*3/uL Normal <0.87 [facility] Comment on above: Order Comment: Speci men Type: BLOOD SPECIMENOrdering Facility: [facility] Address: [address] [place] [address] Performed By: #### 5 7021-8 ####[facility] LABCLIA [id number] [address] [address] [place] Monocytes/100 WBC (Bld) 11.3 % Normal [facility] Comment on above: Order Comment: Speci men Type: BLOOD SPECIMENOrdering Facility: [facility] Address: [address] [place] [address] Performed By: #### 5 7021-8 ####[facility] LABCLIA [id number] [place] [address] [place] Neutrophils (Bld) [#/Vol] 4.28 10*3/uL Normal 1.45-7.50 [facility] Comment on above: Order Comment: Speci men Type: BLOOD SPECIMENOrdering Facility: [facility] Address: [address] [place] [address] Performed By: #### 5 7021-8 ####[facility]CLIA [id number] [place] [address] [place] Neutrophils/100 WBC (Bld) 71.1 % Normal [facility] Comment on above: Order Comment: Speci men Type: BLOOD SPECIMENOrdering Facility: [facility] Address: [address] [place] [address] Performed By: #### 5 7021-8 ####[facility] LABCLIA [id number] [place] [address] [place] Nucleated RBC (Bld) [#/Vol] 10*3/uL Normal <0.01 [facility] Comment on above: Order Comment: Speci men Type: BLOOD SPECIMENOrdering Facility: [facility] Address: [address] [place] [address] Performed By: #### 5 7021-8 ####[facility] LABCLIA [id number] [place] [address] [place] Nucleated RBC/100 WBC (Bld) [Ratio] 0.0 /100 WBC Normal [facility] Comment on above: Order Comment: Speci men Type: BLOOD SPECIMENOrdering Facility: [facility] Address: [address] [place] [address] Performed By: #### 5 7021-8 ####[facility] LABCLIA [id number] [place] [address] [place] Platelet mean volume (Bld) [Entitic vol] 11.8 fL Normal 9.0-12.7 [facility] Comment on above: Order Comment: Speci men Type: BLOOD SPECIMENOrdering Facility: [facility] Address: [address] [place] [address] Performed By: #### 5 7021-8 ####[facility] [id number] [place] [address] [place] Platelets (Bld) [#/Vol] 59 10*3/uL Low 150-400 C [facility] Comment on above: Order Comment: Speci men Type: BLOOD SPECIMENOrdering Facility: [facility] Address: [address] [place] [address] Result Comment: No c lot detected.Results checked and verified. Performed By: #### 5 7021-8 ####[facility] [id number] [place] [address] [place] RBC (Bld) [#/Vol] 2.60 10*6/uL Low 4.20-6.00 [facility] Comment on above: Order Comment: Speci men Type: BLOOD SPECIMENOrdering Facility: [facility] Address: [address] [place] [address] Performed By: #### 5 7021-8 ####[facility] LABCLIA [id number] [place] [address] [place] WBC (Bld) [#/Vol] 6.03 10*3/uL Normal 3.70-11.00 [facility] Comment on above: Order Comment: Speci men Type: BLOOD SPECIMENOrdering Facility: [facility] Address: [address] [place] [address] Performed By: #### 5 7021-8 ####[facility]CLIA [id number] [place] [address] [place] CONSULT PROGon 11-16-2024 CONSULT PROG Normal [facility] CYTOLOGY NON-GYNon 5 AP DISCLAIMER Normal [facility] Comment on above: Order Comment: Speci men Type: FLUID SPECIMENOrdering Facility: [facility] Address: [address] [place] [address] Result Comment: Shellie pugh Developed Test (LDT) Disclaimer:Performance characteristics of immunohistochemical, immunofluorescent, and chromogenic in-situ hybridization tests have been determined by the performing laboratory within [facility] Pathology and Laboratory Medicine Department ([facility], [facility], [facility], [facility], [facility], [facility], or [facility]) in a manner consistent with CLIA requirements. One or more of these tests may not have been cleared or approved by the FDA. [facility] is regulated under CLIA as qualified to perform high-complexity testing. These tests are used for clinical purposes. These should not be regarded as investigational or for research. Positive and negative controls stain appropriately. Performed By: #### C YTONON ####[facility] LABCLIA [id number] [place] [address] [place] CASE REPORT Normal [facility] Comment on above: Order Comment: Speci men Type: FLUID SPECIMENOrdering Facility: [facility] Address: [address] [place] [address] Result Comment: [facility] Cytology Report Case: [id number] Provider: Young Cruz MD Collected: 11/16/2024 08:42 AMOrdering Location: [place] [address] Received: 11/16/2024 06:20 PMPathologist: Stefani Mcneal MDSpecimen: Peritoneal Fluid. Performed By: #### C YTONON ####[facility] LABCLIA [id number] [place] [address] [place] CLINICAL HISTORY Cirrhosis with ascites Normal [facility] Comment on above: Order Comment: Speci men Type: FLUID SPECIMENOrdering Facility: [facility] Address: [address] [place] [address] Performed By: #### C YTONON ####[facility] LABCLIA [id number] [place] [address] [place] FINAL DIAGNOSIS Normal [facility] Comment on above: Order Comment: Speci men Type: FLUID SPECIMENOrdering Facility: [facility] Address: [address] [place] [address] Result Comment: A - Peritoneal Fluid Negative for malignant cells. Chronic inflammation.The following cell blocks were associated with this case:A1 Cell Block, Alcohol Fixed at 1223 EDT Performed By: #### C YTONON ####[facility] LABCLIA [id number] [address] [place] FINAL PERFORMING LAB Normal [facility] Comment on above: Order Comment: Speci men Type: FLUID SPECIMENOrdering Facility: [facility] Address: [address] [place] [address] Result Comment: Tech nical component, dark room attendant screening performed at: [facility], [address] [place], [place] [address] CLIA: [id number] interpretation performed at: [facility], [address] [place], [place] [address] CLIA# [id number] Director: Titi Voss MD Performed By: #### C YTONON ####[facility] LABCLIA [id number] [place] [id number] [place] GROSS DESCRIPTION Normal [facility] Comment on above: Order Comment: Speci men Type: FLUID SPECIMENOrdering Facility: [facility] Address: [address] [place] [address] Result Comment: A. P eritoneal Fluid.1450 cc opaque red fluid . ThinPrep and Cell Block prepared. Performed By: #### C YTONON ####[facility] LABCLIA [id number] [place] [address] [place] ECG COMPLETEon 11-16-2024 ECG COMPLETE Normal [facility] Fibrinogen PPP-mCncon 2024 Fibrinogen Coag (PPP) [Mass/Vol] 127 mg/dL Low 200-400 [facility] Comment on above: Order Comment: Speci men Type: BLOOD SPECIMENOrdering Facility: [facility] Address: [address] [place] [address] Performed By: #### 3 255-7, 03352-5 ####[facility] LABCLIA [id number] [place] [address] [place] Hepatic function 2000 panelo n 11-16-2024 Albumin [Mass/Vol] 2.8 g/dL Low 3.9-4.9 [facility] Comment on above: Order Comment: Speci men Type: BLOOD SPECIMENOrdering Facility: [facility] Address: [address] [place] [address] Performed By: #### 2 4321-2, 17980-0, 2777-1 ####[facility] LABCLIA [id number] [place] [address] [place] ALP [Catalytic activity/Vol] 295 U/L High 38-113 [facility] Comment on above: Order Comment: Speci men Type: BLOOD SPECIMENOrdering Facility: [facility] Address: [address] [place] [address] Performed By: #### 2 4321-2, 84909-5, 2777-1 ####[facility] LABCLIA [id number] [address] [place] [address] [place] ALT [Catalytic activity/Vol] 38 U/L Normal 10-54 [facility] Comment on above: Order Comment: Speci men Type: BLOOD SPECIMENOrdering Facility: [facility] Address: [address] [place] [address] Performed By: #### 2 4321-2, 64699-6, 2776-1 ####[facility] LABCLIA [id number] [place] [id number] [place] AST [Catalytic activity/Vol] 88 U/L High 14-40 [facility] Comment on above: Order Comment: Speci men Type: BLOOD SPECIMENOrdering Facility: [facility] Address: [address] [place] [address] Performed By: #### 2 4321-2, 79258-1, 2776- ####[facility] LABCLIA [id number] [place] [address] [place] Bilirubin [Mass/Vol] 1.8 mg/dL High 0.2-1.3 [facility] Comment on above: Order Comment: Speci men Type: BLOOD SPECIMENOrdering Facility: [facility] Address: [address] [place] [address] Performed By: #### 2 4321-2, 28788-3, 2776-08 ####[facility] LABCLIA [id number] [place] [address] [place] Bilirubin.conjugated [Mass/Vol] 0.9 mg/dL High <0.3 [facility] Comment on above: Order Comment: Speci men Type: BLOOD SPECIMENOrdering Facility: [facility] Address: [address] [place] [address] Performed By: #### 2 4321-2, 12264-3, 2776-1 ####[facility] LABCLIA [id number] [facility] [address], [facility] [place] Protein [Mass/Vol] 5.5 g/dL Low 6.3-8.0 [facility] Comment on above: Order Comment: Speci men Type: BLOOD SPECIMENOrdering Facility: [facility] Address: [address] [place] [address] Performed By: #### 2 4321-2, 82717-1, 2777-1 ####[facility] LABCLIA [id number] [address] [place] [address] [place] MANUAL DIFFERENTIAL, BODY FL UIDon 11-16-2024 DIF TTL, BODY FLUID 100 cells counted Normal [facility] Comment on above: Order Comment: Speci men Type: FLUID SPECIMENOrdering Facility: [facility] Address: [address] [place] [address] Performed By: #### C CBF, [id number] ####[facility] LABCLIA [id number] [place] [address] [place] LYMPH%, BF 47 % High 18-36 [facility] Comment on above: Order Comment: Speci men Type: FLUID SPECIMENOrdering Facility: [facility] Address: [address] [place] [address] Performed By: #### C CBF, [id number] ####[facility] LABCLIA [id number] [address] [place] [address] [place] MACRO%, BF 6 % Low 64-80 [facility] Comment on above: Order Comment: Speci men Type: FLUID SPECIMENOrdering Facility: [facility] Address: [address] [place] [address] Performed By: #### C CBF, [id number] ####[facility] LABCLIA [id number] [address] [address] [place] MESO %, BF 25 % High 0-2 [facility] Comment on above: Order Comment: Speci men Type: FLUID SPECIMENOrdering Facility: [facility] Address: [address] [place] [address] Performed By: #### C CBF, [id number] ####[facility] LABCLIA [id number] [place] [address] [place] MONO% BF 8 % Normal [facility] Comment on above: Order Comment: Speci men Type: FLUID SPECIMENOrdering Facility: [facility] Address: [address] [place] [address] Performed By: #### C CBF, [id number] ####[facility] LABCLIA [id number] [place] [address] [place] NEUT%, BF 14 % High 0-1 [facility] Comment on above: Order Comment: Speci men Type: FLUID SPECIMENOrdering Facility: [facility] Address: [address] [place] [address] Performed By: #### C CBF, [id number] ####[facility] LABCLIA [id number] [place] [address] [place] NURSING PROGon 11-16-2024 NURSING PROG Normal [facility] NURSING PROG Normal [facility] PT panel Coag (PPP)on 2024 INR Coag (PPP) [Relative time] 2.1 {INR} High 0.9-1.3 [facility] Comment on above: Order Comment: Speci men Type: BLOOD SPECIMENOrdering Facility: [facility] Address: [address] [place] [address] Result Comment: Sarah min K Antagonist (VKA) Therapeutic Range: INR 2 to 3 (Target INR of 2.5)Note: For patients treated with VKA drugs, such as warfarin, the [place] [employer] 2012 Guideline recommends [...] 3.5 (target INR of 3).Tammi GONZALES, et monico. Chest 2012, 141:7S-47SHector HIRSCH, et al. [facility] 2017, 70: 252-289 Performed By: #### 3 4528-0 ####[facility] [id number] [place] [address] [place] PT Coag (PPP) [Time] 21.5 s High 9.7-13.0 [facility] Comment on above: Order Comment: Speci men Type: BLOOD SPECIMENOrdering Facility: [facility] Address: [address] [place] [address] Performed By: #### 3 4528-0 ####[facility] [id number] [address] [facility] INR Coag (PPP) [Relative time] 2.0 {INR} High 0.9-1.3 [facility] Comment on above: Order Comment: Speci men Type: BLOOD SPECIMENOrdering Facility: [facility] Address: [address] [place] [address] Result Comment: Sarah min K Antagonist (VKA) Therapeutic Range: INR 2 to 3 (Target INR of 2.5)Note: For patients treated with VKA drugs, such as warfarin, the [place] [employer] 2012 Guideline recommends [...] of 2.5 to 3.5 (target INR of 3).franco Acevedo. Chest 2012, 141:7S-47SHector HIRSCH, et al. [facility] 2017, 70: 252-289 Performed By: #### 3 255-7, 81807-2 ####[facility] LABIA [id number] [place] [id number] [place] PT Coag (PPP) [Time] 20.3 s High 9.7-13.0 [facility] [place] Comment on above: Order Comment: Speci men Type: BLOOD SPECIMENOrdering Facility: [facility] Address: [address] [place] [address] Performed By: #### 3 255-7, 12520-2 ####[facility] LABIA [id number] [place] [address] [place] Phosphate SerPl-ncon 11-16 Phosphate [Mass/Vol] 2.3 mg/dL Low 2.7-4.8 [facility] [place] Comment on above: Order Comment: Speci men Type: BLOOD SPECIMENOrdering Facility: [facility] Address: [address] [place] [address] Performed By: #### 2 4321-2, 11687-6, 2777-1 ####[facility] [id number] [place] [address] [place] Prot Fld-mCncon 11-16-2024 Protein (Body fld) [Mass/Vol] 0.5 g/dL Normal See Comment [facility] Comment on above: Order Comment: Speci men Type: FLUID SPECIMENOrdering Facility: [facility] Address: [address] [place] [address] Result Comment: Sero us fluids: Effusions are [...] document C49A. PAULETTE Diaz: Clinical Laboratory Standards [place]: 2007. Performed By: #### 1 795-4, 2881-1, 1747-5 ####[facility] LABCLIA [id number] [address] [facility] THERAPY NTon 11-16-2024 THERAPY NT Normal [facility] THERAPY NT Normal [facility] BLOOD TB SCREENon 11-15-2024 M. tuberculosis tuberculin stim IFN-g Ql (Bld) Indeterminate Normal [facility] Comment on above: Order Comment: Speci men Type: BLOOD SPECIMENOrdering Facility: [facility] Address: [address] [place] [address] Performed By: #### I NFTBP ####[facility] LABCLIA [id number] [place] [address] [place] MITOGEN MINUS NIL 0.25 IU/mL Low >=0.50 [facility] Comment on above: Order Comment: Speci men Type: BLOOD SPECIMENOrdering Facility: [facility] Address: [address] [place] [address] Performed By: #### I NFTBP ####[facility] LABCLIA [id number] [place] [address] [place] TB GAMMA INTERPRETATION Normal C [facility] Comment on above: Order Comment: Speci men Type: BLOOD SPECIMENOrdering Facility: [facility] Address: [address] [place] [address] Performed By: #### I NFTBP ####[facility] LABCLIA [id number] [address] [facility] TB NIL 0.01 IU/mL Normal <=8.00 [facility] Comment on above: Order Comment: Speci men Type: BLOOD SPECIMENOrdering Facility: [facility] Address: [address] [place] [address] Performed By: #### I NFTBP ####[facility] LABCLIA [id number] [place] [address] [place] TB1 AG MINUS NIL 0.00 IU/mL Normal <0.35 [facility] Comment on above: Order Comment: Speci men Type: BLOOD SPECIMENOrdering Facility: [facility] Address: [address] [place] [address] Performed By: #### I NFTBP ####[facility] LABCLIA [id number] [place] [address] [place] TB2 AG MINUS NIL 0.01 IU/mL Normal <0.35 [facility] Comment on above: Order Comment: Speci men Type: BLOOD SPECIMENOrdering Facility: [facility] Address: [address] [place] [address] Performed By: #### I NFTBP ####[facility] LABIA [id number] [place] [address] [place] CASE MANAGEMon 11-15-2024 CASE MANAGEM Normal [facility] CASE MANAGEM Normal [facility] CBC W Auto Differential pane l (Bld)on 11-15-2024 Basophils (Bld) [#/Vol] 0.05 10*3/uL Normal <0.11 [facility] Comment on above: Order Comment: Speci men Type: BLOOD SPECIMENOrdering Facility: [facility] Address: [address] [place] [address] Performed By: #### 5 7021-8 ####[facility] LABIA [id number] [place] [address] [place] Basophils/100 WBC (Bld) 0.8 % Normal [facility] Comment on above: Order Comment: Speci men Type: BLOOD SPECIMENOrdering Facility: [facility] Address: [address] [place] [address] Performed By: #### 5 7021-8 ####[facility] LABCLIA [id number] [address], [place] [address] [place] Differential cell count method Nom (Bld) Auto Normal [facility] Comment on above: Order Comment: Speci men Type: BLOOD SPECIMENOrdering Facility: [facility] Address: [address] [place] [address] Performed By: #### 5 7021-8 ####[facility] LABCLIA [id number] [place] [address] [place] Eosinophils (Bld) [#/Vol] 0.28 10*3/uL Normal <0.46 [facility] Comment on above: Order Comment: Speci men Type: BLOOD SPECIMENOrdering Facility: [facility] Address: [address] [place] [address] Performed By: #### 5 7021-8 ####[facility] LABCLIA [id number] [place] [address] [place] Eosinophils/100 WBC (Bld) 4.6 % Normal [facility] Comment on above: Order Comment: Speci men Type: BLOOD SPECIMENOrdering Facility: [facility] Address: [address] [place] [address] Performed By: #### 5 7021-8 ####[facility] LABCLIA [id number] [place] [address] [place] Erythrocyte distribution width (RBC) [Ratio] 16.8 % High 11.5-15.0 [facility] Comment on above: Order Comment: Speci men Type: BLOOD SPECIMENOrdering Facility: [facility] Address: [address] [place] [address] Performed By: #### 5 7021-8 ####[facility] LABCLIA [id number] [place] [id number] [place] Hematocrit (Bld) [Volume fraction] 22.9 % Low 39.0-51.0 [facility] Comment on above: Order Comment: Speci men Type: BLOOD SPECIMENOrdering Facility: [facility] Address: [address] [place] [address] Performed By: #### 5 7021-8 ####[facility] LABCLIA [id number] [place] [address] [place] Hemoglobin (Bld) [Mass/Vol] 7.6 g/dL Low 13.0-17.0 [facility] Comment on above: Order Comment: Speci men Type: BLOOD SPECIMENOrdering Facility: [facility] Address: [address] [place] [address] Performed By: #### 5 7021-8 ####[facility] LABIA [id number] [place] [address] [place] Immature granulocytes (Bld) [#/Vol] 0.03 10*3/uL Normal <0.10 [facility] Comment on above: Order Comment: Speci men Type: BLOOD SPECIMENOrdering Facility: [facility] Address: [address] [place] [address] Performed By: #### 5 7021-8 ####[facility] LABIA [id number] [place] [address] [place] Immature granulocytes/100 WBC (Bld) 0.5 % Normal [facility] Comment on above: Order Comment: Speci men Type: BLOOD SPECIMENOrdering Facility: [facility] Address: [address] [place] [address] Performed By: #### 5 7021-8 ####[facility] LABIA [id number] [place] [address] [place] Lymphocytes (Bld) [#/Vol] 0.70 10*3/uL Low 1.00-4.00 [facility] Comment on above: Order Comment: Speci men Type: BLOOD SPECIMENOrdering Facility: [facility] Address: [address] [place] [address] Performed By: #### 5 7021-8 ####[facility] LABIA [id number] [place] [address] [place] Lymphocytes/100 WBC (Bld) 11.5 % Normal [facility] Comment on above: Order Comment: Speci men Type: BLOOD SPECIMENOrdering Facility: [facility] Address: [address] [place] [address] Performed By: #### 5 7021-8 ####[facility] LABIA [id number] [place] [address] [place] MCH (RBC) [Entitic mass] 30.6 pg Normal 26.0-34.0 [facility] Comment on above: Order Comment: Speci men Type: BLOOD SPECIMENOrdering Facility: [facility] Address: [address] [place] [address] Performed By: #### 5 7021-8 ####[facility] LABIA [id number] [place] [address] [place] MCHC (RBC) [Mass/Vol] 33.2 g/dL Normal 30.5-36.0 [facility] Comment on above: Order Comment: Speci men Type: BLOOD SPECIMENOrdering Facility: [facility] Address: [address] [place] [address] Performed By: #### 5 7021-8 ####[facility] LABIA [id number] [place] [address] [place] MCV (RBC) [Entitic vol] 92.3 fL Normal 80.0-100.0 C [facility] Comment on above: Order Comment: Speci men Type: BLOOD SPECIMENOrdering Facility: [facility] Address: [address] [place] [address] Performed By: #### 5 7021-8 ####[facility] LABIA [id number] [place] [address] [place] Monocytes (Bld) [#/Vol] 0.73 10*3/uL Normal <0.87 [facility] Comment on above: Order Comment: Speci men Type: BLOOD SPECIMENOrdering Facility: [facility] Address: [address] [place] [address] Performed By: #### 5 7021-8 ####[facility] LABCLIA [id number] [address] [address] [place] Monocytes/100 WBC (Bld) 12.0 % Normal [facility] Comment on above: Order Comment: Speci men Type: BLOOD SPECIMENOrdering Facility: [facility] Address: [address] [place] [address] Performed By: #### 5 7021-8 ####[facility] LABCLIA [id number] [place] [address] [place] Neutrophils (Bld) [#/Vol] 4.30 10*3/uL Normal 1.45-7.50 [facility] Comment on above: Order Comment: Speci men Type: BLOOD SPECIMENOrdering Facility: [facility] Address: [address] [place] [address] Performed By: #### 5 7021-8 ####[facility] LABCLIA [id number] [place] [id number] [place] Neutrophils/100 WBC (Bld) 70.6 % Normal [facility] Comment on above: Order Comment: Speci men Type: BLOOD SPECIMENOrdering Facility: [facility] Address: [address] [place] [address] Performed By: #### 5 7021-8 ####[facility] LABCLIA [id number] [place] [id number] [place] Nucleated RBC (Bld) [#/Vol] 10*3/uL Normal <0.01 [facility] Comment on above: Order Comment: Speci men Type: BLOOD SPECIMENOrdering Facility: [facility] Address: [address] [place] [address] Performed By: #### 5 7021-8 ####[facility] LABCLIA [id number] [address], [facility]95 [place] Nucleated RBC/100 WBC (Bld) [Ratio] 0.0 /100 WBC Normal [facility] Comment on above: Order Comment: Speci men Type: BLOOD SPECIMENOrdering Facility: [facility] Address: [address] [place] [address] Performed By: #### 5 7021-8 ####[facility] LABCLIA [id number] [address] [place] [address] [place] Platelet mean volume (Bld) [Entitic vol] 12.2 fL Normal 9.0-12.7 [facility] Comment on above: Order Comment: Speci men Type: BLOOD SPECIMENOrdering Facility: [facility] Address: [address] [place] [address] Performed By: #### 5 7021-8 ####[facility] LABCLIA [id number] [address], [place] [address] [place] Platelets (Bld) [#/Vol] 53 10*3/uL Low 150-400 C [facility] Comment on above: Order Comment: Speci men Type: BLOOD SPECIMENOrdering Facility: [facility] Address: [address] [place] [address] Performed By: #### 5 7021-8 ####[facility] LABCLIA [id number] [address] [place] [address] [place] RBC (Bld) [#/Vol] 2.48 10*6/uL Low 4.20-6.00 [facility] Comment on above: Order Comment: Speci men Type: BLOOD SPECIMENOrdering Facility: [facility] Address: [address] [place] [address] Performed By: #### 5 7021-8 ####[facility] LABCLIA [id number] [address], [facility]95 [place] WBC (Bld) [#/Vol] 6.09 10*3/uL Normal 3.70-11.00 [facility] Comment on above: Order Comment: Speci men Type: BLOOD SPECIMENOrdering Facility: [facility] Address: [address] [place] [address] Performed By: #### 5 7021-8 ####[facility] LABCLIA [id number] [place] [address] [place] CNOVon 11-15-2024 CNOV Normal [facility] CONSULTon 11-15-2024 CONSULT Normal [facility] CONSULT PROGon 11-15-2024 CONSULT PROG Normal [facility] Fibrinogen PPP-mCncon 2024 Fibrinogen Coag (PPP) [Mass/Vol] 123 mg/dL Low 200-400 [facility] Comment on above: Order Comment: Speci men Type: BLOOD SPECIMENOrdering Facility: [facility] Address: [address] [place] [address] Performed By: #### 3 255-7, 16809-6 ####[facility] LABIA [id number] [place] [address] [place] Hepatic function 2000 panelo n 11-15-2024 Albumin [Mass/Vol] 2.8 g/dL Low 3.9-4.9 [facility] Comment on above: Order Comment: Speci men Type: BLOOD SPECIMENOrdering Facility: [facility] Address: [address] [place] [address] Performed By: #### 2 4325-3, 41748-7 ####[facility] LABIA [id number] [place] [address] [place] ALP [Catalytic activity/Vol] 277 U/L High 38-113 [facility] Comment on above: Order Comment: Speci men Type: BLOOD SPECIMENOrdering Facility: [facility] Address: [address] [place] [address] Performed By: #### 2 4325-3, 88103-9 ####[facility] LABCLIA [id number] [facility] [address] [place] [address] [place] ALT [Catalytic activity/Vol] 36 U/L Normal 10-54 [facility] Comment on above: Order Comment: Speci men Type: BLOOD SPECIMENOrdering Facility: [facility] Address: [address] [place] [address] Performed By: #### 2 4325-3, 44586-4 ####[facility] LABCLIA [id number] [facility] [address] [place] [address] [place] AST [Catalytic activity/Vol] 87 U/L High 14-40 [facility] Comment on above: Order Comment: Speci men Type: BLOOD SPECIMENOrdering Facility: [facility] Address: [address] [place] [address] Performed By: #### 2 4325-3, 55594-6 ####[facility] LABCLIA [id number] [facility] [address] [place] [address] [place] Bilirubin [Mass/Vol] 1.6 mg/dL High 0.2-1.3 [facility] [place] Comment on above: Order Comment: Speci men Type: BLOOD SPECIMENOrdering Facility: [facility] Address: [address] [place] [address] Performed By: #### 2 4325-3, 30889-2 ####[facility] LABCLIA [id number] [address] [place] [address] [place] Bilirubin.conjugated [Mass/Vol] 0.9 mg/dL High <0.3 [facility] Comment on above: Order Comment: Speci men Type: BLOOD SPECIMENOrdering Facility: [facility] Address: [address] [place] [address] Performed By: #### 2 4325-3, 80810-4 ####[facility] LABCLIA [id number] [address] [place] [address] [place] Protein [Mass/Vol] 5.4 g/dL Low 6.3-8.0 [facility] Comment on above: Order Comment: Ezekiel ramirez Type: BLOOD SPECIMENOrdering Facility: [facility] Address: [address] [place] [address] Performed By: #### 2 4325-3, 70174-4 ####[facility] LABCLIA [id number] [address] [place] PT panel Coag (PPP)on 2024 INR Coag (PPP) [Relative time] 1.8 {INR} High 0.9-1.3 [facility] Comment on above: Order Comment: Ezekiel ramirez Type: BLOOD SPECIMENOrdering Facility: [facility] Address: [address] [place] [address] Result Comment: Sarah min K Antagonist (VKA) Therapeutic Range: INR 2 to 3 (Target INR of 2.5)Note: For patients treated with VKA drugs, such as warfarin, the [place] [employer] 2012 Guideline recommends [...] al. Chest 2012, 141:7S-47SNishimnicolle RA, et al. JAC 2017, 70: 252-289 Performed By: #### 3 255-7, 96815-1 ####[facility] LABIA [id number] [place] [id number] [place] PT Coag (PPP) [Time] 18.9 s High 9.7-13.0 [facility] [place] Comment on above: Order Comment: Speci men Type: BLOOD SPECIMENOrdering Facility: [facility] Address: [address] [place] [address] Performed By: #### 3 255-7, 94516-0 ####[facility] LABCLIA [id number] [facility] [address] [address] [place] Renal function 2000 panelon 11-15-2024 Albumin [Mass/Vol] 2.9 g/dL Low 3.9-4.9 [facility] Comment on above: Order Comment: Speci men Type: BLOOD SPECIMENOrdering Facility: [facility] Address: [address] [place] [address] Performed By: #### 2 4325-3, 42418-8 ####[facility] LABCLIA [id number] [place] [address] [place] Anion gap [Moles/Vol] 15 mmol/L Normal 8-15 [facility] Comment on above: Order Comment: Speci men Type: BLOOD SPECIMENOrdering Facility: [facility] Address: [address] [place] [address] Performed By: #### 2 4325-3, 42453-4 ####[facility] LABCLIA [id number] [place] [address] [place] Calcium [Mass/Vol] 8.4 mg/dL Low 8.5-10.2 [facility] Comment on above: Order Comment: Speci men Type: BLOOD SPECIMENOrdering Facility: [facility] Address: [address] [place] [address] Performed By: #### 2 4325-3, 00300-6 ####[facility] LABCLIA [id number] [place] [id number] [place] Chloride [Moles/Vol] 99 mmol/L Normal 98-107 [facility] [place] Comment on above: Order Comment: Speci men Type: BLOOD SPECIMENOrdering Facility: [facility] Address: [address] [place] [address] Performed By: #### 2 4325-3, 18050-5 ####[facility] LABCLIA [id number] [place] [id number] [place] CO2 [Moles/Vol] 14 mmol/L Low 22-30 [facility] Comment on above: Order Comment: Speci men Type: BLOOD SPECIMENOrdering Facility: [facility] Address: [address] [place] [address] Performed By: #### 2 4325-3, 13272-2 ####[facility] LABIA [id number] [place] [address] [place] Creatinine [Mass/Vol] 0.80 mg/dL Normal 0.73-1.22 [facility] Comment on above: Order Comment: Speci men Type: BLOOD SPECIMENOrdering Facility: [facility] Address: [address] [place] [address] Performed By: #### 2 4325-3, 88542-2 ####[facility] LABIA [id number] [place] [address] [place] Creatinine and Glomerular filtration rate.predicted panel (S/P/Bld) 103 mL/min/1.73m??? Normal >=60 [facility] Comment on above: Order Comment: Speci men Type: BLOOD SPECIMENOrdering Facility: [facility] Address: [address] [place] [address] Result Comment: Patric mated Glomerular Filtration Rate [...] actual GFR. Performed By: #### 2 4325-3, 88067-7 ####[facility] LABIA [id number] [address] [address] [place] Glucose [Mass/Vol] 272 mg/dL High 74-99 [facility] Comment on above: Order Comment: Speci men Type: BLOOD SPECIMENOrdering Facility: [facility] Address: [address] [place] [address] Result Comment: The [place] [employer] (ADA) provides guidance for cutoff [...] Standards of Medical Care in Diabetes 2016, [place] [employer]. Diabetes Care. 2016.39(Suppl 1). Performed By: #### 2 4325-3, 39613-2 ####[facility] LABIA [id number] [place] [address] [place] Phosphate [Mass/Vol] 2.2 mg/dL Low 2.7-4.8 [facility] Comment on above: Order Comment: Meggani men Type: BLOOD SPECIMENOrdering Facility: [facility] Address: [address] [place] [address] Performed By: #### 2 4325-3, 36468-8 ####[facility] LABIA [id number] [place] [address] [place] Potassium [Moles/Vol] 3.8 mmol/L Normal 3.7-5.1 [facility] Comment on above: Order Comment: Speci men Type: BLOOD SPECIMENOrdering Facility: [facility] Address: [address] [place] [address] Performed By: #### 2 4325-3, 16911-5 ####[facility] LABCLIA [id number] [address] [id number] [address] [place] Sodium [Moles/Vol] 128 mmol/L Low 136-144 [facility] Comment on above: Order Comment: Speci men Type: BLOOD SPECIMENOrdering Facility: [facility] Address: [address] [place] [address] Performed By: #### 2 4325-3, 63164-6 ####[facility] LABCLIA [id number] [place] [address] [place] Urea nitrogen [Mass/Vol] 11 mg/dL Normal 9-24 [facility] Comment on above: Order Comment: Speci men Type: BLOOD SPECIMENOrdering Facility: [facility] Address: [address] [place] [address] Performed By: #### 2 4325-3, 84362-1 ####[facility] LABCLIA [id number] [place] [address] [place] SEPSIS LACTATEon 11-15-2024 Lactate [Moles/Vol] 3.2 mmol/L High <=2.0 [facility] Comment on above: Order Comment: Speci men Type: BLOOD SPECIMENOrdering Facility: [facility] Address: [address] [place] [address] Performed By: #### S LACT ####[facility] LABCLIA [id number] [place] [address] [place] SOCIAL WORKon 11-15-2024 SOCIAL WORK Normal [facility] THERAPY NTon 11-15-2024 THERAPY NT Normal [facility] THERAPY NT Normal [facility] TYPE + SCREENon 11-15-2024 ABO O Normal [facility] Comment on above: Order Comment: Speci men Type: BLOOD SPECIMENOrdering Facility: [facility] Address: [address] [place] [address] Performed By: #### T SCR ####[facility] BLOOD BANKCLIA [id number] [place] [address] [place] Rh Nom (Bld) Positive Normal [facility] Comment on above: Order Comment: Speci men Type: BLOOD SPECIMENOrdering Facility: [facility] Address: [address] [place] [address] Performed By: #### T SCR ####[facility] BLOOD BANKCLIA [id number] [address] [address] [place] TYPE AND SCREEN EXPIRATION 11/18/2024 23:59 Normal [facility] Comment on above: Order Comment: Speci men Type: BLOOD SPECIMENOrdering Facility: [facility] Address: [address] [place], [place] [address] Performed By: #### T SCR ####CC [facility] BLOOD BANKCLIA [id number] [place] [id number] [place] US ASCITES SURVEYon 11-16-19 ASCITES SURVEY Normal [facility] Basic metabolic 2000 panelon 11-14-2024 Anion gap [Moles/Vol] 11 mmol/L Normal 8-15 [facility] Comment on above: Order Comment: Speci men Type: BLOOD SPECIMENOrdering Facility: [facility] Address: [address] [place] [address] Performed By: #### 2 4321-2, 88497-2, 2776-08, ####[facility] LABCLIA [id number] [place] [id number] [place] Calcium [Mass/Vol] 8.9 mg/dL Normal 8.5-10.2 [facility] Comment on above: Order Comment: Speci men Type: BLOOD SPECIMENOrdering Facility: [facility] Address: [address] [place] [address] Performed By: #### 2 4321-2, 38772-8, 2776-, ####[facility] LABCLIA [id number] [address] [address] [place] Chloride [Moles/Vol] 99 mmol/L Normal 98-107 [facility] Comment on above: Order Comment: Speci men Type: BLOOD SPECIMENOrdering Facility: [facility] Address: [address] [place], [place] [address] Performed By: #### 2 4321-2, 07168-2, 2776-08, ####[facility] LABIA [id number] [address] [address] [place] CO2 [Moles/Vol] 17 mmol/L Low 22-30 [facility] Comment on above: Order Comment: Speci men Type: BLOOD SPECIMENOrdering Facility: [facility] Address: [address] [place], [place] [address] Performed By: #### 2 4321-2, 37553-4, 2776-08, ####[facility] [id number] [place] [id number] [place] Creatinine [Mass/Vol] 0.89 mg/dL Normal 0.73-1.22 [facility] Comment on above: Order Comment: Speci men Type: BLOOD SPECIMENOrdering Facility: [facility] Address: [address] [place] [address] Performed By: #### 2 4321-2, 90147-5, 2776-08, ####[facility] [id number] [place] [id number] [place] Creatinine and Glomerular filtration rate.predicted panel (S/P/Bld) 99 mL/min/1.73m??? Normal >=60 [facility] Comment on above: Order Comment: Speci men Type: BLOOD SPECIMENOrdering Facility: [facility] Address: [address] [place], [place] [address] Result Comment: Patric mated Glomerular Filtration Rate [...] actual GFR. Performed By: #### 2 4321-2, 91485-6, 2776-08, ####[facility] LABCLIA [id number] [address] [address] [place] Glucose [Mass/Vol] 250 mg/dL High 74-99 [facility] Comment on above: Order Comment: Speci men Type: BLOOD SPECIMENOrdering Facility: [facility] Address: [address] [place] [address] Result Comment: The [place] [employer] (ADA) provides guidance for cutoff [...] Standards of Medical Care in Diabetes 2016, [place] [employer]. Diabetes Care. 2016.39(Suppl 1). Performed By: #### 2 4321-2, 50957-6, 2776-08, ####[facility] LABCLIA [id number] [facility] [address] [address] [place] Potassium [Moles/Vol] 3.6 mmol/L Low 3.7-5.1 [facility] Comment on above: Order Comment: Meggani men Type: BLOOD SPECIMENOrdering Facility: [facility] Address: [address] [place] [address] Performed By: #### 2 4321-2, 61183-4, 2776-08, ####[facility] LABCLIA [id number] [facility] [address] [address] [place] Sodium [Moles/Vol] 127 mmol/L Low 136-144 [facility] Comment on above: Order Comment: Speci men Type: BLOOD SPECIMENOrdering Facility: [facility] Address: [address] [place] [address] Performed By: #### 2 4321-2, 54760-9, 2776-, ####[facility] LABCLIA [id number] [place] [address] [place] Urea nitrogen [Mass/Vol] 14 mg/dL Normal 9-24 [facility] Comment on above: Order Comment: Speci men Type: BLOOD SPECIMENOrdering Facility: [facility] Address: [address] [place] [address] Performed By: #### 2 4321-2, 16307-6, 27702-01, ####[facility] LABCLIA [id number] [place] [address] [place] CBC W Auto Differential pane l (Bld)on 11-14-2024 Basophils (Bld) [#/Vol] 0.04 10*3/uL Normal <0.11 [facility] Comment on above: Order Comment: Speci men Type: BLOOD SPECIMENOrdering Facility: [facility] Address: [address] [place] [address] Performed By: #### 5 7021-8 ####[facility] LABCLIA [id number] [place] [address] [place] Basophils/100 WBC (Bld) 0.7 % Normal C [facility] Comment on above: Order Comment: Speci men Type: BLOOD SPECIMENOrdering Facility: [facility] Address: [address] [place] [address] Performed By: #### 5 7021-8 ####[facility] LABCLIA [id number] [place] [address] [place] Differential cell count method Nom (Bld) Auto Normal [facility] Comment on above: Order Comment: Speci men Type: BLOOD SPECIMENOrdering Facility: [facility] Address: [address] [place] [address] Performed By: #### 5 7021-8 ####[facility] LABCLIA [id number] [place] [address] [place] Eosinophils (Bld) [#/Vol] 0.23 10*3/uL Normal <0.46 [facility] Comment on above: Order Comment: Speci men Type: BLOOD SPECIMENOrdering Facility: [facility] Address: [address] [place] [address] Performed By: #### 5 7021-8 ####[facility] LABCLIA [id number] [place] [address] [place] Eosinophils/100 WBC (Bld) 4.1 % Normal [facility] Comment on above: Order Comment: Speci men Type: BLOOD SPECIMENOrdering Facility: [facility] Address: [address] [place] [address] Performed By: #### 5 7021-8 ####[facility] LABCLIA [id number] [place] [address] [place] Erythrocyte distribution width (RBC) [Ratio] 16.3 % High 11.5-15.0 [facility] Comment on above: Order Comment: Speci men Type: BLOOD SPECIMENOrdering Facility: [facility] Address: [address] [place] [address] Performed By: #### 5 7021-8 ####[facility] LABCLIA [id number] [facility] [place] [address] [place] Hematocrit (Bld) [Volume fraction] 22.7 % Low 39.0-51.0 [facility] Comment on above: Order Comment: Speci men Type: BLOOD SPECIMENOrdering Facility: [facility] Address: [address] [place] [address] Performed By: #### 5 7021-8 ####[facility] LABCLIA [id number] [place] [address] [place] Hemoglobin (Bld) [Mass/Vol] 7.9 g/dL Low 13.0-17.0 [facility] Comment on above: Order Comment: Speci men Type: BLOOD SPECIMENOrdering Facility: [facility] Address: [address] [place] [address] Performed By: #### 5 7021-8 ####[facility] LABCLIA [id number] [place] [address] [place] Immature granulocytes (Bld) [#/Vol] 0.04 10*3/uL Normal <0.10 [facility] Comment on above: Order Comment: Speci men Type: BLOOD SPECIMENOrdering Facility: [facility] Address: [address] [place] [address] Performed By: #### 5 7021-8 ####[facility] LABCLIA [id number] [place] [address] [place] Immature granulocytes/100 WBC (Bld) 0.7 % Normal [facility] Comment on above: Order Comment: Speci men Type: BLOOD SPECIMENOrdering Facility: [facility] Address: [address] [place] [address] Performed By: #### 5 7021-8 ####[facility] LABCLIA [id number] [place] [address] [place] Lymphocytes (Bld) [#/Vol] 0.72 10*3/uL Low 1.00-4.00 [facility] Comment on above: Order Comment: Speci men Type: BLOOD SPECIMENOrdering Facility: [facility] Address: [address] [place] [address] Performed By: #### 5 7021-8 ####[facility] LABCLIA [id number] [place] [address] [place] Lymphocytes/100 WBC (Bld) 12.8 % Normal [facility] Comment on above: Order Comment: Speci men Type: BLOOD SPECIMENOrdering Facility: [facility] Address: [address] [place] [address] Performed By: #### 5 7021-8 ####[facility] [id number] [place] [address] [place] MCH (RBC) [Entitic mass] 31.7 pg Normal 26.0-34.0 [facility] Comment on above: Order Comment: Speci men Type: BLOOD SPECIMENOrdering Facility: [facility] Address: [address] [place] [address] Performed By: #### 5 7021-8 ####[facility] [id number] [place] [address] [place] MCHC (RBC) [Mass/Vol] 34.8 g/dL Normal 30.5-36.0 [facility] Comment on above: Order Comment: Speci men Type: BLOOD SPECIMENOrdering Facility: [facility] Address: [address] [place] [address] Performed By: #### 5 7021-8 ####[facility] [id number] [place] [address] [place] MCV (RBC) [Entitic vol] 91.2 fL Normal 80.0-100.0 C [facility] Comment on above: Order Comment: Speci men Type: BLOOD SPECIMENOrdering Facility: [facility] Address: [address] [place] [address] Performed By: #### 5 7021-8 ####[facility] [id number] [place] [address] [place] Monocytes (Bld) [#/Vol] 0.68 10*3/uL Normal <0.87 [facility] Comment on above: Order Comment: Speci men Type: BLOOD SPECIMENOrdering Facility: [facility] Address: [address] [place] [address] Performed By: #### 5 7021-8 ####[facility] LABCLIA [id number] [address] [address] [place] Monocytes/100 WBC (Bld) 12.1 % Normal [facility] Comment on above: Order Comment: Speci men Type: BLOOD SPECIMENOrdering Facility: [facility] Address: [address] [place] [address] Performed By: #### 5 7021-8 ####[facility] LABCLIA [id number] [place] [address] [place] Neutrophils (Bld) [#/Vol] 3.92 10*3/uL Normal 1.45-7.50 [facility] Comment on above: Order Comment: Speci men Type: BLOOD SPECIMENOrdering Facility: [facility] Address: [address] [place] [address] Performed By: #### 5 7021-8 ####[facility] LABCLIA [id number] [place] [address] [place] Neutrophils/100 WBC (Bld) 69.6 % Normal [facility] Comment on above: Order Comment: Speci men Type: BLOOD SPECIMENOrdering Facility: [facility] Address: [address] [place] [address] Performed By: #### 5 7021-8 ####[facility] LABCLIA [id number] [place] [address] [place] Nucleated RBC (Bld) [#/Vol] 10*3/uL Normal <0.01 [facility] Comment on above: Order Comment: Speci men Type: BLOOD SPECIMENOrdering Facility: [facility] Address: [address] [place] [address] Performed By: #### 5 7021-8 ####[facility] LABCLIA [id number] [address] [address] [place] Nucleated RBC/100 WBC (Bld) [Ratio] 0.0 /100 WBC Normal [facility] Comment on above: Order Comment: Speci men Type: BLOOD SPECIMENOrdering Facility: [facility] Address: [address] [place] [address] Performed By: #### 5 7021-8 ####[facility] LABCLIA [id number] [place] [address] [place] Platelet mean volume (Bld) [Entitic vol] 12.1 fL Normal 9.0-12.7 [facility] Comment on above: Order Comment: Speci men Type: BLOOD SPECIMENOrdering Facility: [facility] Address: [address] [place] [address] Performed By: #### 5 7021-8 ####[facility] LABIA [id number] [place] [address] [place] Platelets (Bld) [#/Vol] 43 10*3/uL Low 150-400 C [facility] Comment on above: Order Comment: Speci men Type: BLOOD SPECIMENOrdering Facility: [facility] Address: [address] [place] [address] Result Comment: Resu lts checked and verified.No clot detected. Performed By: #### 5 7021-8 ####[facility] LABIA [id number] [place] [address] [place] RBC (Bld) [#/Vol] 2.49 10*6/uL Low 4.20-6.00 [facility] Comment on above: Order Comment: Speci men Type: BLOOD SPECIMENOrdering Facility: [facility] Address: [address] [place] [address] Performed By: #### 5 7021-8 ####[facility] LABCLIA [id number] [place] [address] [place] WBC (Bld) [#/Vol] 5.63 10*3/uL Normal 3.70-11.00 [facility] Comment on above: Order Comment: Speci men Type: BLOOD SPECIMENOrdering Facility: [facility] Address: [address] [place] [address] Performed By: #### 5 7021-8 ####[facility] LABIA [id number] [place] [address] [place] Fibrinogen PPP-mCncon 2024 Fibrinogen Coag (PPP) [Mass/Vol] 119 mg/dL Low 200-400 [facility] Comment on above: Order Comment: Speci men Type: BLOOD SPECIMENOrdering Facility: [facility] Address: [address] [place] [address] Performed By: #### 3 255-7, 29397-3 ####[facility] LABIA [id number] [place] [address] [place] Hepatic function 2000 panelo n 11-14-2024 Albumin [Mass/Vol] 2.8 g/dL Low 3.9-4.9 [facility] Comment on above: Order Comment: Speci men Type: BLOOD SPECIMENOrdering Facility: [facility] Address: [address] [place] [address] Performed By: #### 2 4321-2, 01470-2, 2777-1, 44650-6 ####[facility] LABIA [id number] [place] [address] [place] ALP [Catalytic activity/Vol] 248 U/L High 38-113 [facility] Comment on above: Order Comment: Speci men Type: BLOOD SPECIMENOrdering Facility: [facility] Address: [address] [place] [address] Performed By: #### 2 4321-2, 30928-6, 2777-1, 07581-2 ####[facility] LABIA [id number] [place] [id number] [place] ALT [Catalytic activity/Vol] 29 U/L Normal 10-54 [facility] Comment on above: Order Comment: Speci men Type: BLOOD SPECIMENOrdering Facility: [facility] Address: [address] [place], [place] [address] Performed By: #### 2 4321-2, 57960-6, 2776-08, ####[facility] LABCLIA [id number] [address] [address] [place] AST [Catalytic activity/Vol] 62 U/L High 14-40 [facility] Comment on above: Order Comment: Speci men Type: BLOOD SPECIMENOrdering Facility: [facility] Address: [address] [place], [place] [address] Performed By: #### 2 4321-2, 77251-6, 2776-, ####[facility] LABCLIA [id number] [place] [id number] [place] Bilirubin [Mass/Vol] 1.7 mg/dL High 0.2-1.3 [facility] Comment on above: Order Comment: Speci men Type: BLOOD SPECIMENOrdering Facility: [facility] Address: [address] [place] [address] Performed By: #### 2 4321-2, 74783-5, 2776-08, ####[facility] LABCLIA [id number] [place] [address] [place] Bilirubin.conjugated [Mass/Vol] 1.0 mg/dL High <0.3 [facility] Comment on above: Order Comment: Speci men Type: BLOOD SPECIMENOrdering Facility: [facility] Address: [address] [place], [place] [address] Performed By: #### 2 4321-2, 03160-5, 2776-08, ####[facility] LABCLIA [id number] [address] [address] [place] Protein [Mass/Vol] 5.4 g/dL Low 6.3-8.0 [facility] Comment on above: Order Comment: Speci men Type: BLOOD SPECIMENOrdering Facility: [facility] Address: [address] [place], [place] [address] Performed By: #### 2 4321-2, 90028-7, 2777-1, 69048-4 ####[facility] LABCLIA [id number] [place] [id number] [place] Magnesium SerPl-mCncon 11-14 Magnesium [Mass/Vol] 1.6 mg/dL Low 1.7-2.3 [facility] Comment on above: Order Comment: Ezekiel ramirez Type: BLOOD SPECIMENOrdering Facility: [facility] Address: [address] [place] [address] Performed By: #### 2 4321-2, 90693-1, 2777-, ####[facility] LABCLIA [id number] [place] [address] [place] PT panel Coag (PPP)on 2024 INR Coag (PPP) [Relative time] 1.8 {INR} High 0.9-1.3 [facility] Comment on above: Order Comment: Ezekiel ramirez Type: BLOOD SPECIMENOrdering Facility: [facility] Address: [address] [place] [address] Result Comment: Sarah min K Antagonist (VKA) Therapeutic Range: INR 2 to 3 (Target INR of 2.5)Note: For patients treated with VKA drugs, such as warfarin, the [place] [employer] 2012 Guideline recommends [...] al. Chest 2012, 141:7S-47SNishimura RA, et al. [facility] 2017, 70: 252-289 Performed By: #### 3 255-7, 09384-1 ####[facility] LABIA [id number] [place] [address] [place] PT Coag (PPP) [Time] 19.2 s High 9.7-13.0 [facility] Comment on above: Order Comment: Speci men Type: BLOOD SPECIMENOrdering Facility: [facility] Address: [address] [place] [address] Performed By: #### 3 255-7, 65661-1 ####[facility] LABIA [id number] [place] [address] [place] Phosphate SerPl-mCncon 11-14 Phosphate [Mass/Vol] 1.9 mg/dL Low 2.7-4.8 [facility] Comment on above: Order Comment: Speci men Type: BLOOD SPECIMENOrdering Facility: [facility] Address: [address] [place] [address] Performed By: #### 2 4321-2, 51330-0, 2777-1, 65718-8 ####[facility] LABIA [id number] [place] [address] [place] URINALYSIS, REFLEX MICROSCOP ICon 11-14-2024 Bacteria LM.HPF (Urine sed) [#/Area] Negative Normal Negative [facility] Comment on above: Order Comment: Speci men Type: URINE SPECIMENOrdering Facility: [facility] Address: [address] [place] [address] Performed By: #### L [id number] ####[facility] LABIA [id number] [place] [address] [place] Bilirubin Ql (U) 1+ Abnormal Negative [facility] Comment on above: Order Comment: Speci men Type: URINE SPECIMENOrdering Facility: [facility] Address: [address] [place] [address] Result Comment: Sugg est correlation with clinical findings and serum bilirubin if clinically indicated. Performed By: #### L [id number] ####[facility] LABCLIA [id number] [place] [address] [place] Clarity (Unsp spec) Cloudy Abnormal Clear [facility] Comment on above: Order Comment: Speci men Type: URINE SPECIMENOrdering Facility: [facility] Address: [address] [place] [address] Performed By: #### L [id number] ####[facility] LABCLIA [id number] [place] [address] [place] Color (U) Gates Abnormal Yellow [facility] Comment on above: Order Comment: Speci men Type: URINE SPECIMENOrdering Facility: [facility] Address: [address] [place] [address] Performed By: #### L [id number] ####[facility] LABCLIA [id number] [place] [address] [place] Epithelial cells LM.HPF (Urine sed) [#/Area] None Seen Normal [facility] Comment on above: Order Comment: Speci men Type: URINE SPECIMENOrdering Facility: [facility] Address: [address] [place] [address] Performed By: #### L [id number] ####[facility] LABCLIA [id number] [place] [address] [place] Glucose Test strip (U) [Mass/Vol] Negative Normal Negative [facility] Comment on above: Order Comment: Speci men Type: URINE SPECIMENOrdering Facility: [facility] Address: [address] [place] [address] Performed By: #### L [id number] ####[facility] LABCLIA [id number] [place] [address] [place] Hemoglobin Ql (U) 3+ Abnormal Negative [facility] Comment on above: Order Comment: Speci men Type: URINE SPECIMENOrdering Facility: [facility] Address: [address] [place] [address] Performed By: #### L [id number] ####[facility] LABCLIA [id number] [address] [place] [address] [place] Hyaline casts (Urine sed) [#/Area] 0 /[LPF] Normal 0 /LPF [facility] Comment on above: Order Comment: Speci men Type: URINE SPECIMENOrdering Facility: [facility] Address: [address] [place] [address] Performed By: #### L [id number] ####[facility] LABCLIA [id number] [place] [id number] [place] Ketones Ql (U) Negative Normal Negative [facility] Comment on above: Order Comment: Speci men Type: URINE SPECIMENOrdering Facility: [facility] Address: [address] [place] [address] Performed By: #### L [id number] ####[facility] LABCLIA [id number] [place] [id number] [place] Leukocyte esterase Test strip Ql (U) 3+ Abnormal Negative [facility] Comment on above: Order Comment: Speci men Type: URINE SPECIMENOrdering Facility: [facility] Address: [address] [place] [address] Performed By: #### L [id number] ####[facility] LABCLIA [id number] [address] [place] [address] [place] Nitrite Ql (U) Negative Normal Negative [facility] Comment on above: Order Comment: Speci men Type: URINE SPECIMENOrdering Facility: [facility] Address: [address] [place] [address] Performed By: #### L [id number] ####[facility] LABCLIA [id number] [address] [address] [place] pH (U) 6.0 [pH] Normal <8.5 [facility] Comment on above: Order Comment: Speci men Type: URINE SPECIMENOrdering Facility: [facility] Address: [address] [place] [address] Performed By: #### L [id number] ####[facility] LABIA [id number] [place] [address] [place] Protein (U) [Mass/Vol] 2+ Abnormal Negative [facility] Comment on above: Order Comment: Speci men Type: URINE SPECIMENOrdering Facility: [facility] Address: [address] [place] [address] Performed By: #### L [id number] ####[facility] LABIA [id number] [place] [address] [place] RBC LM.HPF (Urine sed) [#/Area] /[HPF] Abnormal 0-2 /HPF [facility] Comment on above: Order Comment: Speci men Type: URINE SPECIMENOrdering Facility: [facility] Address: [address] [place] [address] Performed By: #### L [id number] ####[facility], INCIA [id number] [address] [place] Specific gravity (U) [Rel density] 1.017 Normal 1.005-1.030 [facility] Comment on above: Order Comment: Speci men Type: URINE SPECIMENOrdering Facility: [facility] Address: [address] [place] [address] Performed By: #### L [id number] ####[facility], [place] [id number] [address] [place] Urobilinogen Ql (U) 0.2 EU/dL Normal 0.2-1.0 EU/dL [facility] Comment on above: Order Comment: Speci men Type: URINE SPECIMENOrdering Facility: [facility] Address: [address] [place] [address] Performed By: #### L [id number] ####[facility] LABIA [id number] [place] [address] [place] WBC LM.HPF (Urine sed) [#/Area] /[HPF] Abnormal 0-5 /HPF [facility] Comment on above: Order Comment: Speci men Type: URINE SPECIMENOrdering Facility: [facility] Address: [address] [place] [address] Performed By: #### L [id number] ####[facility] LABIA [id number] [place] [address] [place] Yeast.budding LM.HPF (Urine sed) [#/Area] Present Abnormal None Seen [facility] Comment on above: Order Comment: Speci men Type: URINE SPECIMENOrdering Facility: [facility] Address: [address] [place] [address] Performed By: #### L [id number] ####[facility] LABIA [id number] [place] [address] [place] 25(OH)D3 [facility]-ncon 2024 25-hydroxyvitamin D3 [Mass/Vol] 16.2 ng/mL Low 31.0-80.0 [facility] Comment on above: Order Comment: Speci men Type: BLOOD SPECIMENOrdering Facility: [facility] Address: [address] [place] [address] Performed By: #### 7 852-7, MEASLG, VZVG2, 1989- ####[facility], [place] [id number] [place] [address] [place] A-[facility]oc[facility]rol [facility] Alpha tocopherol [Mass/Vol] 3.3 mg/L Low 6.0-23.0 [facility] Comment on above: Order Comment: Speci men Type: BLOOD SPECIMENOrdering Facility: [facility] Address: [address] [place] [address] Performed By: #### 2 923-1, 1823-4 ####[facility] LABCLIA [id number] [facility] [place] [address] [place] ALPHA-1 ANTITRYPSIN GENOon 0 11-13-2024 HA1AT REVIEWED BY Michelle Anderson [facility] Comment on above: Order Comment: Speci men Type: BLOOD SPECIMENOrdering Facility: [facility] Address: [address] [place] [address] Result Comment: Alph a-1 Antitrypsin GenotypingLaboratory Accession Number: [id number]:No Variant Detected in SERPINA1 (PI*MM)Interpretation:DNA testing indicates [...] the two mostcommon pathogenic variants: S (c.863A>T, p.Pxd058Tal, g.16480136), Z(c.1096G>A, p.Zhx081Vvi, g.20806842), and the rarer variants: F(c.739C>T, p.Iwr109Dzv, g.45320094), I (c.187C>T, p.Yqk19Ujf,g.22738529).Limitations:This Laboratory Developed Test (LDT) is designed to [...] was developed and its performance characteristics determinedby [facility]'s [facility] and [facility] Medicine Department. Ithas not been cleared or approved by the FDA. [facility] is regulated under CLIAas certified to perform high-complexity testing. This test is used forclinical purposes. It should not be regarded as investigational or forresearch.Test performed at [facility], [address] [place] [address]. CLIA Number: [id number]:1) Kait RA, Samir G, Essence ML, Ilan M, Kai CE, K,Jadyn DK, Princess SL, Suman JM, Ivania OliveiraK, Haider C, Renée J.The Diagnosis and Management of Alpha-1 Antritrypsin Deficiency inthe Adult. Chronic Obstr Pulm Dis. 2016 Jan 07;3:668-682.2) Renee BLAND, Linsey ON, Rachele ER, Khushi BOYER. a1-Antitrypsinphenotypes and associated serum protein concentrations in a largeclinical population. Chest.2013 Nov;143(4):1000-8.3) Elmo A, Toña MATHEW, Brad CR, Jennifer FJ, Salvador FONTAINE, Nicole. Molecular characterisation of three plrsl-9-rgoibfswicl deficiencyvariants: proteinase inhibitor (Pi) nullcardiff (Ugc273----Vwt);PiMmalton (Jvr31----ettkngpq) and PiI (Mgy52----Nup). Hum Trisha. 1988Dec;84(1):55-8.4) Flor EK and Kait RA. Clinical practice.Alpha1-antitrypsin deficiency. N Engl J Med. 2008;360(62)3060-41.5) Margot NJ, Kwame F, Prakash HIRSCH. The significance of the F variantof pldok-6-glxgrpfihck and unique case report of a PiFF homozygote.[facility] Pulm Med. 2013Mar 10;14:132.6) Ivania OliveiraK, Elena SHETTY, and Jaziel Carlson. Alpha-1 AntitrypsinDeficiency. 2005May 30 [Updated 2016August 22]. In: Juanito RA, Barbara, Nemesio TO, et al., editors. GeneReviews [Internet]. [place] ([place]):[facility]ly [facility]; 9969-2364. Available from:http://www.ncbi.nlm.nih.gov/books/SXP8461/Interpretation performed at remote location (A1) by Fifi España MD Performed By: #### H A1AT ####[facility] [id number] [place] [address] [place] ANES POSTPROC EVALon 025 ANES POSTPROC EVAL Normal [facility] ANES PRE-OPon 11-13-2024 ANES PRE-OP Normal [facility] Alpha tocopherol [Mass/Vol]o n 11-13-2024 Beta+gamma tocopherol [Mass/Vol] 0.6 mg/L Normal 0.3-3.2 [facility] Comment on above: Order Comment: Speci men Type: BLOOD SPECIMENOrdering Facility: [facility] Address: [address] [place] [address] Result Comment: This test was developed, and its performance characteristics determined by the [facility] Department of Pathology and Laboratory Medicine. It has not been cleared or approved by the FDA. The [facility] Department of Pathology and Laboratory Medicine is regulated under CLIA as qualified to perform high-complexity testing. This test is used for clinical purposes. It should not be regarded as investigational or for research. Performed By: #### 2 923-1, 1823-4 ####[facility] LABCLIA [id number] [facility] [address] [address] [place] Basic metabolic 2000 panelon 11-13-2024 Anion gap [Moles/Vol] 9 mmol/L Normal 8-15 [facility] Comment on above: Order Comment: Speci men Type: BLOOD SPECIMENOrdering Facility: [facility] Address: [address] [place] [address] Performed By: #### 2 4321-2, 38895-2, 59515-7, 17649-9 ####[facility] LABIA [id number] [address] [address] [place] Calcium [Mass/Vol] 9.1 mg/dL Normal 8.5-10.2 [facility] Comment on above: Order Comment: Speci men Type: BLOOD SPECIMENOrdering Facility: [facility] Address: [address] [place] [address] Performed By: #### 2 4321-2, 72738-3, 56708-8, 21038-1 ####[facility] LABIA [id number] [address] [address] [place] Chloride [Moles/Vol] 99 mmol/L Normal 98-107 [facility] Comment on above: Order Comment: Speci men Type: BLOOD SPECIMENOrdering Facility: [facility] Address: [address] [place] [address] Performed By: #### 2 4321-2, 36434-3, 62703-1, 76800-9 ####[facility] LABCLIA [id number] [facility] [address] [address] [place] CO2 [Moles/Vol] 16 mmol/L Low 22-30 [facility] Comment on above: Order Comment: Speci men Type: BLOOD SPECIMENOrdering Facility: [facility] Address: [address] [place] [address] Performed By: #### 2 4321-2, 60714-5, 31485-7, 47196-7 ####[facility] LABCLIA [id number] [place] [address] [place] Creatinine [Mass/Vol] 1.10 mg/dL Normal 0.73-1.22 [facility] Comment on above: Order Comment: Speci men Type: BLOOD SPECIMENOrdering Facility: [facility] Address: [address] [place] [address] Performed By: #### 2 4321-2, 51752-0, 91298-7, 28414-8 ####[facility] LABIA [id number] [place] [address] [place] Creatinine and Glomerular filtration rate.predicted panel (S/P/Bld) 78 mL/min/1.73m??? Normal >=60 [facility] Comment on above: Order Comment: Speci men Type: BLOOD SPECIMENOrdering Facility: [facility] Address: [address] [place] [address] Result Comment: Patric mated Glomerular Filtration Rate [...] actual GFR. Performed By: #### 2 4321-2, 75826-6, 35340-0, 84207-8 ####[facility] LABCLIA [id number] [facility] [address] [address] [place] Glucose [Mass/Vol] 278 mg/dL High 74-99 [facility] Comment on above: Order Comment: Speci men Type: BLOOD SPECIMENOrdering Facility: [facility] Address: [address] [place] [address] Result Comment: The [place] Diabetes Association (ADA) provides guidance for cutoff [...] Standards of Medical Care in Diabetes 2016, [place] [employer]. Diabetes Care. 2016.39(Suppl 1). Performed By: #### 2 4321-2, 20718-2, 09231-1, 19546-9 ####[facility] LABCLIA [id number] [place] [address] [place] Potassium [Moles/Vol] 4.1 mmol/L Normal 3.7-5.1 [facility] Comment on above: Order Comment: Ezekiel ramirez Type: BLOOD SPECIMENOrdering Facility: [facility] Address: [address] [place] [address] Performed By: #### 2 4321-2, 68541-5, 75904-2, 56116-2 ####[facility] LABIA [id number] [place] [address] [place] Sodium [Moles/Vol] 124 mmol/L Low 136-144 [facility] Comment on above: Order Comment: Ezekiel ramirez Type: BLOOD SPECIMENOrdering Facility: [facility] Address: [address] [place] [address] Performed By: #### 2 4321-2, 50932-5, 03811-0, 12687-8 ####[facility] LABCLIA [id number] [place] [address] [place] Urea nitrogen [Mass/Vol] 20 mg/dL Normal 9-24 [facility] Comment on above: Order Comment: Speci men Type: BLOOD SPECIMENOrdering Facility: [facility] Address: [address] [place] [address] Performed By: #### 2 4321-2, 06388-3, 06598-6, 71881-4 ####[facility] LABCLIA [id number] [place] [address] [place] CBC W Auto Differential pane l (Bld)on 11-13-2024 Basophils (Bld) [#/Vol] 10*3/uL Normal <0.11 [facility] Comment on above: Order Comment: Speci men Type: BLOOD SPECIMENOrdering Facility: [facility] Address: [address] [place] [address] Performed By: #### 5 7021-8 ####[facility] LABCLIA [id number] [place] [address] [place] Basophils/100 WBC (Bld) 0.4 % Normal [facility] Comment on above: Order Comment: Speci men Type: BLOOD SPECIMENOrdering Facility: [facility] Address: [address] [place] [address] Performed By: #### 5 7021-8 ####[facility] LABCLIA [id number] [address] [place] Differential cell count method Nom (Bld) Auto Normal [facility] Comment on above: Order Comment: Speci men Type: BLOOD SPECIMENOrdering Facility: [facility] Address: [address] [place] [address] Performed By: #### 5 7021-8 ####[facility] LABCLIA [id number] [place] [address] [place] Eosinophils (Bld) [#/Vol] 0.18 10*3/uL Normal <0.46 [facility] Comment on above: Order Comment: Speci men Type: BLOOD SPECIMENOrdering Facility: [facility] Address: [address] [place] [address] Performed By: #### 5 7021-8 ####[facility] LABCLIA [id number] [place] [address] [place] Eosinophils/100 WBC (Bld) 3.3 % Normal [facility] Comment on above: Order Comment: Speci men Type: BLOOD SPECIMENOrdering Facility: [facility] Address: [address] [place] [address] Performed By: #### 5 7021-8 ####[facility] LABIA [id number] [place] [address] [place] Erythrocyte distribution width (RBC) [Ratio] 17.0 % High 11.5-15.0 [facility] Comment on above: Order Comment: Speci men Type: BLOOD SPECIMENOrdering Facility: [facility] Address: [address] [place] [address] Performed By: #### 5 7021-8 ####[facility] LABIA [id number] [place] [address] [place] Hematocrit (Bld) [Volume fraction] 21.6 % Low 39.0-51.0 [facility] Comment on above: Order Comment: Speci men Type: BLOOD SPECIMENOrdering Facility: [facility] Address: [address] [place] [address] Performed By: #### 5 7021-8 ####[facility] LABCLIA [id number] [place] [address] [place] Hemoglobin (Bld) [Mass/Vol] 7.4 g/dL Low 13.0-17.0 [facility] Comment on above: Order Comment: Speci men Type: BLOOD SPECIMENOrdering Facility: [facility] Address: [address] [place] [address] Performed By: #### 5 7021-8 ####[facility] LABCLIA [id number] [address] [address] [place] Immature granulocytes (Bld) [#/Vol] 0.04 10*3/uL Normal <0.10 [facility] Comment on above: Order Comment: Speci men Type: BLOOD SPECIMENOrdering Facility: [facility] Address: [address] [place] [address] Performed By: #### 5 7021-8 ####[facility] LABCLIA [id number] [place] [address] [place] Immature granulocytes/100 WBC (Bld) 0.7 % Normal [facility] Comment on above: Order Comment: Speci men Type: BLOOD SPECIMENOrdering Facility: [facility] Address: [address] [place] [address] Performed By: #### 5 7021-8 ####[facility] LABCLIA [id number] [place] [address] [place] Lymphocytes (Bld) [#/Vol] 0.64 10*3/uL Low 1.00-4.00 [facility] Comment on above: Order Comment: Speci men Type: BLOOD SPECIMENOrdering Facility: [facility] Address: [address] [place] [address] Performed By: #### 5 7021-8 ####[facility] LABCLIA [id number] [place] [address] [place] Lymphocytes/100 WBC (Bld) 11.6 % Normal [facility] Comment on above: Order Comment: Speci men Type: BLOOD SPECIMENOrdering Facility: [facility] Address: [address] [place] [address] Performed By: #### 5 7021-8 ####[facility] LABCLIA [id number] [place] [address] [place] MCH (RBC) [Entitic mass] 31.8 pg Normal 26.0-34.0 [facility] Comment on above: Order Comment: Speci men Type: BLOOD SPECIMENOrdering Facility: [facility] Address: [address] [place] [address] Performed By: #### 5 7021-8 ####[facility] LABCLIA [id number] [place] [address] [place] MCHC (RBC) [Mass/Vol] 34.3 g/dL Normal 30.5-36.0 [facility] Comment on above: Order Comment: Speci men Type: BLOOD SPECIMENOrdering Facility: [facility] Address: [address] [place] [address] Performed By: #### 5 7021-8 ####[facility] LABCLIA [id number] [place] [address] [place] MCV (RBC) [Entitic vol] 92.7 fL Normal 80.0-100.0 C [facility] Comment on above: Order Comment: Speci men Type: BLOOD SPECIMENOrdering Facility: [facility] Address: [address] [place] [address] Performed By: #### 5 7021-8 ####[facility] LABCLIA [id number] [place] [address] [place] Monocytes (Bld) [#/Vol] 0.68 10*3/uL Normal <0.87 [facility] Comment on above: Order Comment: Speci men Type: BLOOD SPECIMENOrdering Facility: [facility] Address: [address] [place] [address] Performed By: #### 5 7021-8 ####[facility] LABCLIA [id number] [place] [address] [place] Monocytes/100 WBC (Bld) 12.4 % Normal C [facility] Comment on above: Order Comment: Speci men Type: BLOOD SPECIMENOrdering Facility: [facility] Address: [address] [place] [address] Performed By: #### 5 7021-8 ####[facility] LABCLIA [id number] [address] [address] [place] Neutrophils (Bld) [#/Vol] 3.94 10*3/uL Normal 1.45-7.50 [facility] Comment on above: Order Comment: Speci men Type: BLOOD SPECIMENOrdering Facility: [facility] Address: [address] [place] [address] Performed By: #### 5 7021-8 ####[facility] LABCLIA [id number] [place] [address] [place] Neutrophils/100 WBC (Bld) 71.6 % Normal [facility] Comment on above: Order Comment: Speci men Type: BLOOD SPECIMENOrdering Facility: [facility] Address: [address] [place] [address] Performed By: #### 5 7021-8 ####[facility] LABCLIA [id number] [place] [address] [place] Nucleated RBC (Bld) [#/Vol] 10*3/uL Normal <0.01 [facility] Comment on above: Order Comment: Speci men Type: BLOOD SPECIMENOrdering Facility: [facility] Address: [address] [place] [address] Performed By: #### 5 7021-8 ####[facility] LABCLIA [id number] [place] [address] [place] Nucleated RBC/100 WBC (Bld) [Ratio] 0.0 /100 WBC Normal [facility] Comment on above: Order Comment: Speci men Type: BLOOD SPECIMENOrdering Facility: [facility] Address: [address] [place] [address] Performed By: #### 5 7021-8 ####[facility] LABCLIA [id number] [place] [id number] [place] Platelet mean volume (Bld) [Entitic vol] 11.7 fL Normal 9.0-12.7 [facility] Comment on above: Order Comment: Speci men Type: BLOOD SPECIMENOrdering Facility: [facility] Address: [address] [place] [address] Performed By: #### 5 7021-8 ####[facility] LABCLIA [id number] [place] [address] [place] Platelets (Bld) [#/Vol] 38 10*3/uL Low 150-400 C [facility] Comment on above: Order Comment: Speci men Type: BLOOD SPECIMENOrdering Facility: [facility] Address: [address] [place] [address] Result Comment: Resu lts checked and verified.No clot detected. Performed By: #### 5 7021-8 ####[facility] LABIA [id number] [place] [address] [place] RBC (Bld) [#/Vol] 2.33 10*6/uL Low 4.20-6.00 [facility] Comment on above: Order Comment: Speci men Type: BLOOD SPECIMENOrdering Facility: [facility] Address: [address] [place] [address] Performed By: #### 5 7021-8 ####[facility] LABCLIA [id number] [place] [address] [place] WBC (Bld) [#/Vol] 5.50 10*3/uL Normal 3.70-11.00 [facility] Comment on above: Order Comment: Speci men Type: BLOOD SPECIMENOrdering Facility: [facility] Address: [address] [place] [address] Performed By: #### 5 7021-8 ####[facility] LABCLIA [id number] [place] [address] [place] CMV IgG Qnon 11-13-2024 CMV IGG QUAL Negative Normal Negative [facility] Comment on above: Order Comment: Speci men Type: BLOOD SPECIMENOrdering Facility: [facility] Address: [address] [place] [address] Result Comment: No s erological evidence of past exposure to Cytomegalovirus. Cannot exclude recent infection if the specimen collected within 4-6 weeks after infection. Performed By: #### 7 852-7, MEASLG, VZVG2, 1987-10 ####[facility] LABCLIA [id number] [place] [address] [place] CMV IgG SerPl-aCncon 025 CMV IgG Qn 0.37 U/mL Normal [facility] Comment on above: Order Comment: Speci men Type: BLOOD SPECIMENOrdering Facility: [facility] Address: [address] [place] [address] Result Comment: The magnitude of the measured result is not indicative of the amount of antibody present.U/mL values are interpreted as follows:Negative <0.6Equivocal 0.6 to <0.70Positive >=0.70 Performed By: #### 7 852-7, MEASLG, VZVG2, 1987-10 ####[facility] LABCLIA [id number] [place] [address] [place] CONSULT PROGon 11-13-2024 CONSULT PROG Normal [facility] CYTOLOGY NON-GYNon 5 AP DISCLAIMER Normal [facility] Comment on above: Order Comment: Speci men Type: FLUID SPECIMENOrdering Facility: [facility] Address: [address] [place] [address] Result Comment: Shellie pugh Developed Test (LDT) Disclaimer:Performance characteristics of immunohistochemical, immunofluorescent, and chromogenic in-situ hybridization tests have been determined by the performing laboratory within [facility]'s [facility] Torres Pathology and Laboratory Medicine Department ([facility], [facility], [facility], [facility], [facility], Counts Include [facility], or [facility]) in a manner consistent with CLIA requirements. One or more of these tests may not have been cleared or approved by the FDA. [facility] is regulated under CLIA as qualified to perform high-complexity testing. These tests are used for clinical purposes. These should not be regarded as investigational or for research. Positive and negative controls stain appropriately. Performed By: #### C YTONON ####[facility] LABCLIA [id number] [address] [place] CASE REPORT Normal [facility] Comment on above: Order Comment: Speci men Type: FLUID SPECIMENOrdering Facility: [facility] Address: [address] [place] [address] Result Comment: [facility] Cytology Report Case: [id number] Provider: Deb Fox MD Collected: 11/13/2024 02:46 PMOrdering Location: [place] [address] Received: 11/15/2024 05:01 AMPathologist: Foster Newton MDSpecimen: Urine, Midstream Performed By: #### C YTONON ####[facility] LABCLIA [id number] [address] STATES OF [facility] [place] calculi, s/ p L sided stenting with hematuria Normal [facility] Comment on above: Order Comment: Speci men Type: FLUID SPECIMENOrdering Facility: [facility] Address: [address] [place] [address] Performed By: #### C YTONON ####[facility] LABCLIA [id number] [address] STATES [facility] DIAGNOSIS COMMENT Normal [facility] Comment on above: Order Comment: Speci men Type: FLUID SPECIMENOrdering Facility: [facility] Address: [address] [place] [address] Result Comment: A. F ungal yeast forms are seen, morphologically consistent with Mary species. Clinical correlation is suggested. Performed By: #### C YTONON ####[facility] LABCLIA [id number] [address] OF [facility] FINAL DIAGNOSIS Normal [facility] Comment on above: Order Comment: Speci men Type: FLUID SPECIMENOrdering Facility: [facility] Address: [address] [place] [address] Result Comment: A - Urine, Voided: Negative for high-grade urothelial carcinoma. Abundant acute inflammation (see comment). at 1141 EDT Performed By: #### C YTONON ####[facility] LABCLIA [id number] [place] [address] [place] FINAL PERFORMING LAB Normal [facility] [place] Comment on above: Order Comment: Speci men Type: FLUID SPECIMENOrdering Facility: [facility] Address: [address] [place] [address] Result Comment: Tech nical component, dark room attendant screening performed at: [facility], [address] [place] [address] CLIA: [id number] interpretation performed at: [facility], [address] [place] [address] CLIA# [id number] Director: Titi Voss MD Performed By: #### C YTONON ####[facility] LABCLIA [id number] [place] [address] [place] GROSS DESCRIPTION Normal [facility] Comment on above: Order Comment: Speci men Type: FLUID SPECIMENOrdering Facility: [facility] Address: [address] [place] [address] Result Comment: A. U rine, Fenfjxuvy22 cc cloudy lexis fluid . ThinPrep prepared. Performed By: #### C YTONON ####[facility] LABCLIA [id number] [place] [address] [place] EBV capsid IgG Qn (S)on 11-02 EBV VCA IGG, QUAL Positive Abnormal Negative [facility] Comment on above: Order Comment: Speci men Type: BLOOD SPECIMENOrdering Facility: [facility] Address: [address] [place] [address] Result Comment: The result suggests recent or past EBV infection. The final interpretation should be done in the context of other EBV serology panel results. Performed By: #### 8 039-0, 7885-7 ####[facility] LABCLIA [id number] [place] [address] [place] Fibrinogen PPP-mCncon 2024 Fibrinogen Coag (PPP) [Mass/Vol] 94 mg/dL Low 200-400 [facility] Comment on above: Order Comment: Speci men Type: BLOOD SPECIMENOrdering Facility: [facility] Address: [address] [place] [address] Result Comment: Samp le checked for clot. Performed By: #### 3 4528-0, 3255-7 ####[facility] LABIA [id number] [place] [address] [place] HBV core Ab Ser Qlon 025 HBV core Ab Ql (S) Negative Normal Negative [facility] Comment on above: Order Comment: Speci [facility] Type: BLOOD SPECIMENOrdering Facility: [facility] Address: [address] [place] [address] Result Comment: No e vidence of current or past infection with Hepatitis B virus. Should recent infection be suspected, repeat testing may be considered 3-4 weeks after this draw. Performed By: #### 3 1201-7, 34735-5, AHAVG, 5195-3, 93679-7 ####[facility] LABIA [id number] [place] [address] [place] HBV surface Ab Ql (S)on 11-02 HBV surface Ab Qn (S) <8.00 Normal [facility] Comment on above: Order Comment: Speci men Type: BLOOD SPECIMENOrdering Facility: [facility] Address: [address] [place] [address] Result Comment: <8 m IU/mL: No serological evidence of immunity to Hepatitis B Virus.>/= 8 to <12 mIU/mL: No serological evidence of immunity to Hepatitis B Virus.>/= 12 mIU/mL: Consistent with serological evidence of immunity to Hepatitis B Virus. Performed By: #### 3 1201-7, 02607-0, AHAVG, 5-3, 06275-1 ####[facility] LABCLIA [id number] [address] [address] [place] HBV surface Ab Ser Qlon 11-02 HBV surface Ab Ql (S) Negative Normal [facility] Comment on above: Order Comment: Speci men Type: BLOOD SPECIMENOrdering Facility: [facility] Address: [address] [place] [address] Result Comment: No s erological evidence of immunity to Hepatitis B Virus. Performed By: #### 3 1201-7, 84485-0, AHAVG, 5-3, 32768-9 ####[facility] LABCLIA [id number] [place] [address] [place] HBV surface Ag Ser Qlon 11-02 HBV surface Ag Ql (S) Negative Normal Negative [facility] Comment on above: Order Comment: Speci men Type: BLOOD SPECIMENOrdering Facility: [facility] Address: [address] [place] [address] Performed By: #### 3 1201-7, 15469-0, AHAVG, 5195-3, 50956-6 ####[facility] LABCLIA [id number] [place] [address] [place] HCV Ab Ser Qlon 11-13-2024 HCV Ab Ql (S) Negative Normal Negative [facility] Comment on above: Order Comment: Speci men Type: BLOOD SPECIMENOrdering Facility: [facility] Address: [address] [place] [address] Result Comment: The result suggests no evidence of infection with Hepatitis C virus. Should recent infection be suspected, repeat testing may be considered 4-6 weeks after this draw. Performed By: #### 1 6128-1 ####[facility] LABCLIA [id number] [place] [address] [place] HEPATITIS A ANTIBODY, IGGon 11-13-2024 HAV IgG Ql (S) Negative Normal [facility] Comment on above: Order Comment: Speci men Type: BLOOD SPECIMENOrdering Facility: [facility] Address: [address] [place] [address] Result Comment: No s erological evidence of past exposure to hepatitis A virus or hepatitis A vaccination. Should recent infection be suspected, repeat testing is suggested 3-4 weeks after this draw. Performed By: #### 3 1201-7, 35795-1, AHAVG, 5195-3, 31663-8 ####[facility] LABCLIA [id number] [place] [address] [place] Performed By: #### 7 3752-8, AHAVG, STRSER, MUMPSG ####[facility] LABCLIA [id number] [place] [address] [place] HIV 1+2 Ab IA Qlon HIV 1 and 2 Ab IA.rapid Nom (S/P/Bld) Normal [facility] Comment on above: Order Comment: Speci men Type: BLOOD SPECIMENOrdering Facility: [facility] Address: [address] [place] [address] Result Comment: Test not indicated. Performed By: #### 3 1201-7, 31947-5, AHAVG, 5-3, 80431-1 ####[facility] LABIA [id number] [place] [address] [place] HIV 1+2 Ab+HIV1 p24 Ag IA Ql Non-Reactive Normal Nonreactive [facility] Comment on above: Order Comment: Speci men Type: BLOOD SPECIMENOrdering Facility: [facility] Address: [address] [place] [address] Performed By: #### 3 1201-7, 28331-3, AHAVG, 5-3, 37248-2 ####[facility] LABCLIA [id number] [place] [id number] [place] HIV immunoassay testing algorithm interpretation (S/P/Bld) [Interp] Normal [facility] Comment on above: Order Comment: Speci men Type: BLOOD SPECIMENOrdering Facility: [facility] Address: [address] [place] [address] Result Comment: No e vidence of HIV-1 or HIV-2 infection. Should recent infection be suspected, repeat testing may be considered 2-3 weeks after this draw.[place] Rev. Code 3701.243(E): This information has been [...] or diagnoses. Performed By: #### 3 1201-7, 53229-4, AHAVG, 5195-3, 40760-2 ####[facility] LABIA [id number] [place] [address] [place] Hepatic function 2000 panelo n 11-13-2024 Albumin [Mass/Vol] 2.8 g/dL Low 3.9-4.9 [facility] Comment on above: Order Comment: Speci men Type: BLOOD SPECIMENOrdering Facility: [facility] Address: [address] [place] [address] Performed By: #### 2 4321-2, 22765-8, 06607-4, 50982-8 ####[facility] LABIA [id number] [place] [address] [place] ALP [Catalytic activity/Vol] 225 U/L High 38-113 [facility] Comment on above: Order Comment: Speci men Type: BLOOD SPECIMENOrdering Facility: [facility] Address: [address] [place] [address] Performed By: #### 2 4321-2, 41861-7, 81211-8, 01434-8 ####[facility] LABCLIA [id number] [place] [id number] [place] ALT [Catalytic activity/Vol] 22 U/L Normal 10-54 [facility] Comment on above: Order Comment: Speci men Type: BLOOD SPECIMENOrdering Facility: [facility] Address: [address] [place] [address] Performed By: #### 2 4321-2, 36483-1, 27793-2, 86238-4 ####[facility] LABCLIA [id number] [place] [address] [place] AST [Catalytic activity/Vol] 36 U/L Normal 14-40 [facility] Comment on above: Order Comment: Speci men Type: BLOOD SPECIMENOrdering Facility: [facility] Address: [address] [place] [address] Performed By: #### 2 4321-2, 30677-4, 02203-2, 90402-0 ####[facility] LABCLIA [id number] [place] [address] [place] Bilirubin [Mass/Vol] 1.8 mg/dL High 0.2-1.3 [facility] Comment on above: Order Comment: Speci men Type: BLOOD SPECIMENOrdering Facility: [facility] Address: [address] [place] [address] Performed By: #### 2 4321-2, 48473-0, 49838-0, 60522-8 ####[facility] LABCLIA [id number] [place] [id number] [place] Bilirubin.conjugated [Mass/Vol] 0.9 mg/dL High <0.3 [facility] Comment on above: Order Comment: Speci men Type: BLOOD SPECIMENOrdering Facility: [facility] Address: [address] [place] [address] Performed By: #### 2 4321-2, 04112-9, 34501-8, 75952-1 ####[facility] LABCLIA [id number] [place] [address] [place] Protein [Mass/Vol] 5.2 g/dL Low 6.3-8.0 [facility] Comment on above: Order Comment: Speci men Type: BLOOD SPECIMENOrdering Facility: [facility] Address: [address] [place] [address] Performed By: #### 2 4321-2, 70960-8, 75146-2, 64865-8 ####[facility] LABIA [id number] [place] [id number] [place] LIVER REC INIT W/Uon 025 ALLOGEN RESULTS TO FOLLOW See Allogen report to follow Normal [facility] Comment on above: Order Comment: Speci men Type: BLOOD SPECIMENOrdering Facility: [facility] Address: [address] [place] [address] Performed By: #### L RIPW ####[facility] [id number] [place] [address] [place] LPa SerPl-mCncon 11-13-2024 Lipoprotein a [Mass/Vol] mg/dL Normal <30 [facility] Comment on above: Order Comment: Speci men Type: BLOOD SPECIMENOrdering Facility: [facility] Address: [address] [place] [address] Performed By: #### 1 0835-7 ####[facility] LABIA [id number] [address] [address] [place] Lipid 1996 panelon Cholesterol [Mass/Vol] 52 mg/dL Normal <200 [facility] Comment on above: Order Comment: Speci men Type: BLOOD SPECIMENOrdering Facility: [facility] Address: [address] [place] [address] Result Comment: <200 mg/dL, Desirable 200-239 mg/dL, Borderline high>239 mg/dL, High Performed By: #### 2 4321-2, 60661-0, 15349-7, 97425-1 ####[facility] LABCLIA [id number] [address] [address] [place] Cholesterol in HDL [Mass/Vol] 17 mg/dL Low >39 [facility] Comment on above: Order Comment: Speci men Type: BLOOD SPECIMENOrdering Facility: [facility] Address: [address] [place] [address] Result Comment: 40-5 9 mg/dL, Acceptable>59 mg/dL, High: Negative risk factor for coronary heart disease<40 mg/dL, Low: Positive risk factor for coronary heart disease Performed By: #### 2 4321-2, 38957-0, 72074-0, 59627-2 ####[facility] LABCLIA [id number] [address] [place] Cholesterol in LDL [Mass/Vol] 26 mg/dL Normal <100 [facility] Comment on above: Order Comment: Speci men Type: BLOOD SPECIMENOrdering Facility: [facility] Address: [address] [place] [address] Result Comment: <100 mg/dL, Optimal 100-129 mg/dL, Near optimal/above optimal 130-159 mg/dL, Borderline high 160-189 mg/dL, High>189 mg/dL, Very highSecondary prevention optimal LDL Cholesterol levels are recommended to be < 70 mg/dL Performed By: #### 2 4321-2, 86505-0, 75587-9, 05269-3 ####[facility] LABCLIA [id number] [address] [address] [place] Cholesterol in LDL/Cholesterol in HDL [Mass ratio] 1.53 {ratio} Normal <2.54 [facility] Comment on above: Order Comment: Speci men Type: BLOOD SPECIMENOrdering Facility: [facility] Address: [address] [place] [address] Result Comment: Demetrio haines:1. National Cholesterol Education Program ATP III Guideline At-A-Glance Quick Desk Reference: National Heart, Lung, and Blood [place]. National Institutes of Health. 2001: NIH Publication No. 01-3305.2. An International Atherosclerosis Society position paper: global recommendations for the management of dyslipidemia: executive summary, Atherosclerosis. 2014: 232(2):410-413. Performed By: #### 2 4321-2, 29773-2, 19305-8, 54991-6 ####[facility] LABCLIA [id number] [place] [address] [place] Cholesterol in VLDL [Mass/Vol] 9 mg/dL Normal <30 [facility] Comment on above: Order Comment: Speci men Type: BLOOD SPECIMENOrdering Facility: [facility] Address: [address] [place] [address] Performed By: #### 2 4321-2, 57455-3, 45057-0, 89926-4 ####[facility] LABIA [id number] [place] [address] [place] Cholesterol non HDL [Mass/Vol] 35 mg/dL Normal <130 [facility] Comment on above: Order Comment: Meggani men Type: BLOOD SPECIMENOrdering Facility: [facility] Address: [address] [place] [address] Result Comment: <130 mg/dL, Optimal 130-159 mg/dL, Near optimal/above optimal 160-189 mg/dL, Borderline high 190-219 mg/dL, High>219 mg/dL, Very highSecondary prevention optimal non HDL Cholesterol levels are recommended to be <100 mg/dL Performed By: #### 2 4321-2, 42045-8, 17992-7, 33212-0 ####[facility] LABIA [id number] [place] [address] [place] Cholesterol.total/Donna sterol in HDL [Mass ratio] 3.06 {ratio} Normal <5.10 [facility] Comment on above: Order Comment: Speci men Type: BLOOD SPECIMENOrdering Facility: [facility] Address: [address] [place] [address] Performed By: #### 2 4321-2, 75384-1, 23594-6, 89313-6 ####[facility] LABCLIA [id number] [place] [address] [place] FASTING TIME 4 hrs Normal [facility] Comment on above: Order Comment: Speci men Type: BLOOD SPECIMENOrdering Facility: [facility] Address: [address] [place] [address] Performed By: #### 2 4321-2, 82178-6, 78602-5, 29593-9 ####[facility] LABCLIA [id number] [place] [address] [place] Triglyceride [Mass/Vol] 45 mg/dL Normal <150 [facility] Comment on above: Order Comment: Speci men Type: BLOOD SPECIMENOrdering Facility: [facility] Address: [address] [place] [address] Result Comment: <150 mg/dL, Normal 150-199 mg/dL, Borderline high 200-499 mg/dL, High>499 mg/dL, Very high Performed By: #### 2 4321-2, 88576-1, 93272-2, 10229-6 ####[facility] LABCLIA [id number] [place] [address] [place] MUMPS IGG ABon 11-13-2024 MuV IgG Ql (S) Negative Abnormal Positive [facility] Comment on above: Order Comment: Speci men Type: BLOOD SPECIMENOrdering Facility: [facility] Address: [address] [place] [address] Result Comment: The result suggests no history of Mumps vaccination or exposure to Mumps virus, however, some individuals with past history of Mumps vaccination may test negative using this test. Please correlate with past history of vaccination if applicable. Performed By: #### 7 3752-8, AHAVG, STRSER, MUMPSG ####[facility] LABCLIA [id number] [place] [address] [place] NT[facility]proBNP [facility] Natriuretic peptide.B prohormone N-Terminal [Mass/Vol] 1047 pg/mL High <125 [facility] Comment on above: Order Comment: Speci men Type: BLOOD SPECIMENOrdering Facility: [facility] Address: [address] [place] [address] Performed By: #### 2 4321-2, 80362-8, 74942-2, 69171-8 ####[facility] LABCLIA [id number] [place] [address] [place] NURSING PROGon 11-13-2024 NURSING PROG Normal [facility] NURSING PROG Normal [facility] PHOSPHATIDYLETHANOL (PETH)on 11-13-2024 EER PETH See Note Normal [facility] Comment on above: Order Comment: Speci men Type: BLOOD SPECIMENOrdering Facility: [facility] Address: [address] [place] [address] Result Comment: Auth orized individuals can access the Nextance Enhanced Reportwith an Nextance Connect account using the following link.Your local lab can assist you in obtaining the patientreport if you don't have a Connect account.[email or web address] Performed By: #### P ETH ####[facility] [id number] [place] [address] PETH 16:0/18.2 (PLPETH) <10 [facility] Comment on above: Order Comment: Speci men Type: BLOOD SPECIMENOrdering Facility: [facility] Address: [address] [place] [address] Result Comment: Refe rence ranges are not well established. Performed By: #### P ETH ####[facility] [id number] [place] [address] PETH 16:0/18:1 (POPETH) <10 [facility] Comment on above: Order Comment: Speci men Type: BLOOD SPECIMENOrdering Facility: [facility] Address: [address] [place] [id number] Result Comment: PEth 16:0/18:1 (POPEth)Less than 10 ng/mL............Not detectedLess than 20 ng/mL............Abstinence or light xumtheblsnushtynwb91 - 200 ng/mL................Moderate alcohol consumptionGreater than 200 ng/mL........Heavy alcohol consumption or chronicalcohol use(Reference: Alonso Landaverde and Mathew Ha 2018 J. Forensic Sci) Performed By: #### P ETH ####[facility] [id number] [place] [address] PETH INTERPRETATION See Comment Normal [facility] Comment on above: Order Comment: Speci men Type: BLOOD SPECIMENOrdering Facility: [facility] Address: [address] [place] [address] Result Comment: Phos phatidylethanol (PEth) is a [...] was developed and its performance characteristicsdetermined by [employer]. It has not been cleared orapproved by the U.S. Food and Drug Administration. This test wasperformed in a CLIA-certified laboratory and is intended forclinical purposes.Performed By: [facility] [place], [place] [address]Uyvlvnuvuk Director: Lizandro Ordonez MD, PhDCLIA Number: [id number] Performed By: #### P ETH ####[facility]IESCLIA [id number] [place] [address] PT panel Coag (PPP)on 2024 INR Coag (PPP) [Relative time] 1.9 {INR} High 0.9-1.3 [facility] Comment on above: Order Comment: Ezekiel ramirez Type: BLOOD SPECIMENOrdering Facility: [facility] Address: [address] [place] [address] Result Comment: Sarah min K Antagonist (VKA) Therapeutic Range: INR 2 to 3 (Target INR of 2.5)Note: For patients treated with VKA drugs, such as warfarin, the [employer] [employer] 2012 Guideline recommends [...] al. Chest 2012, 141:7S-47SHector RA, et al. [facility] 2017, 70: 252-289 Performed By: #### 3 4528-0, 3255-7 ####[facility] LABCLIA [id number] [place] [address] [place] PT Coag (PPP) [Time] 19.9 s High 9.7-13.0 [facility] Comment on above: Order Comment: Ezekiel ramirez Type: BLOOD SPECIMENOrdering Facility: [facility] Address: [address] [place] [address] Performed By: #### 3 4528-0, 3255-7 ####[facility] LABCLIA [id number] [address] Pathology biopsy report Marco Antonio (Tiss)on 11-13-2024 AP DISCLAIMER Normal [facility] Comment on above: Order Comment: Speci men Type: TISSUE SPECIMENOrdering Facility: [facility] Address: [address] [place] [address] Result Comment: Shellie pugh Developed Test (LDT) Disclaimer:Performance characteristics of immunohistochemical, immunofluorescent, and chromogenic in-situ hybridization tests have been determined by the performing laboratory within [facility]'s [facility] Pathology and Laboratory Medicine Department ([facility], [facility], [facility], [facility], [facility], Counts Include [facility], or [facility]) in a manner consistent with CLIA [...] Performed By: #### 6 6121-5 ####[facility]ORY[facility]IA [id number] [address] LABCLIA [id number] [place] [address] [place] CASE REPORT Normal [facility] Comment on above: Order Comment: Speci men Type: TISSUE SPECIMENOrdering Facility: [facility] Address: [address] [place] [address] Result Comment: Surg ical Pathology Report Case: [id number] Provider: Thai Pineda MD Collected: 11/13/2024 09:40 AMOrdering Location: [place] [address] Received: 11/15/2024 03:18 PMPathologist: Axel Berger MDSpecimen: Esophagus, Biopsy, r/o esophageal candidiasis Performed By: #### 6 6121-5 ####[facility] [id number] [address] LABCLIA [id number] [address] FINAL DIAGNOSIS Normal [facility] Comment on above: Order Comment: Speci men Type: TISSUE SPECIMENOrdering Facility: [facility] Address: [address] [place] [address] Result Comment: Ashly kaye, biopsy:- Squamous mucosal candidiasis.JEL 11/16/2024 at 1034 EDT Performed By: #### 6 6121-5 ####[facility] [id number] [address] LABCLIA [id number] [address] FINAL PERFORMING LAB Normal [facility] Comment on above: Order Comment: Speci men Type: TISSUE SPECIMENOrdering Facility: [facility] Address: [address] [place] [address] Result Comment: Diag nostic interpretation performed at: [facility], [address] [place] [address] CLIA# [id number] Director: Rick Harris MD Performed By: #### 6 6121-5 ####[facility] [id number] [address] LABCLIA [id number] [place] [id number] [facility] GROSS DESCRIPTION Normal [facility] Comment on above: Order Comment: Speci men Type: TISSUE SPECIMENOrdering Facility: [facility] [facility] Address: [address] [place] [address] Result Comment: A. E sophagus, BiopsyReceived in formalin are multiple pieces of espitia, soft tissue aggregating to 0.9 x 0.2 x 0.2 cm. Totally submitted in one cassette. November 15, 2024 4:50 PMGross examination performed at [facility], [address] [place] [address] Performed By: #### 6 6121-5 ####[facility]ATORYCLIA [id number] [place] [address] [place] [facility] [id number] [place] [address] [place] Phosphate SerPl-mCncon 11-13 Phosphate [Mass/Vol] 1.5 mg/dL Low 2.7-4.8 [facility] Comment on above: Order Comment: Speci men Type: BLOOD SPECIMENOrdering Facility: [facility] Address: [address] [place] [address] Performed By: #### 2 777-1, 3016-3 ####[facility] LABIA [id number] [place] [address] [place] RUBEOLA (MEASLES)IGGon 11-13 MEASLES IGG AB, QUAL Positive Normal Positive [facility] Comment on above: Order Comment: Speci men Type: BLOOD SPECIMENOrdering Facility: [facility] Address: [address] [place] [address] Result Comment: The result suggests recent or past exposure to Measles virus or Measles vaccination. The current test does not detect neutralizing antibodies. Positive result may also be seen due to presence of passively-transferred antibodies. Please correlate with patient's history. Performed By: #### 7 852-7, MEASLG, VZVG2, 1987- ####[facility] LABCLIA [id number] [place] [address] [place] Reagin and Treponema pallidu m IgG and IgM [Interp]on 11-13-2024 T. pallidum IgG+IgM IA Ql (S) Non-Reactive Normal Nonreactive [facility] Comment on above: Order Comment: Speci men Type: BLOOD SPECIMENOrdering Facility: [facility] Address: [address] [place] [address] Performed By: #### 7 3752-8, AHAVG STRJAYESH MUMPSG ####[facility] LABCLIA [id number] [place] [address] [place] Reagin+T pallidum IgG+IgM Se rPl-Impon 11-13-2024 Reagin and Treponema pallidum IgG and IgM [Interp] Cannot exclude recent Treponemal infection if specimen collected within 7-10 days after appearance of suspect lesions or 2-3 weeks after an exposure. Clinical correlation is required. Normal [facility] Comment on above: Order Comment: Speci men Type: BLOOD SPECIMENOrdering Facility: [facility] Address: [address] [place] [address] Performed By: #### 7 3752-8, AHAVLoki STRSER MUMPSG ####[facility] LABCLIA [id number] [place] [address] [place] STAPHYLOCOCCUS AUREUS AND MR SA SCREEN, PCR, NASALon 11-13-2024 S. aureus and MRSA panel ANANTH+probe (Nose) Not detected Normal Not Detected [facility] Comment on above: Order Comment: Speci men Type: SWABOrdering Facility: [facility] Address: [address] [place] [address] Performed By: #### S APCR ####[facility] LABIA [id number] [place] [address] [place] STRONGYLOIDES IGG BLon 11-13 STRONGYLOIDES IGG QUALITATIVE Negative Normal Negative [facility] Comment on above: Order Comment: Speci men Type: BLOOD SPECIMENOrdering Facility: [facility] Address: [address] [place] [address] Performed By: #### S TRSER ####[facility] LABCLIA [id number] [place] [address] [place] Performed By: #### 7 3752-8, AHAVG, STRSER, MUMPSG ####[facility] LABCLIA [id number] [place] [address] [place] T. gondii IgG Qn (S)on 11-13 TOXO IGG QUAL Negative Normal Negative [facility] Comment on above: Order Comment: Ezekiel ramirez Type: BLOOD SPECIMENOrdering Facility: [facility] Address: [address] [place] [address] Result Comment: No s erological evidence of past exposure to Toxoplasma gondii. Cannot exclude recent infection if the specimen collected within 3-4 weeks after infection. Performed By: #### 8 039-0, 7885-7 ####[facility], INCIA [id number] [place] [address] [place] THERAPY NTon 11-13-2024 THERAPY NT Normal [facility] TOXICOLOGY PANEL BLDon 11-13 Acetaminophen [Mass/Vol] ug/mL Low 10-30 [facility] Comment on above: Order Comment: Ezekiel ramirez Type: BLOOD SPECIMENOrdering Facility: [facility] Address: [address] [place] [address] Result Comment: Toxi c > 150 ug/mL 4 hours post ingestionThe Viviana Figueroa nomogram can be used to estimate the probability of hepatotoxicity via the relationship of plasma acetaminophen concentration to the post ingestion interval. (Skylar. Pediatrics. 1975. 55:871 to 876 and Viviana et al. [employer] Med. 1981. 141:380 to 385).Reference ranges and high/low indicator flags are provided as general guidelines only. The treating physician must determine appropriate target levels/dosing based on the specific clinical situation. Performed By: #### T OXP ####[facility] LABIA [id number] [place] [address] [place] Ethanol [Mass/Vol] mg/dL Normal <11 [facility] Comment on above: Order Comment: Ezekiel ramirez Type: BLOOD SPECIMENOrdering Facility: [facility] Address: [address] [place] [address] Performed By: #### T OXP ####[facility] LABCLIA [id number] [place] [address] [place] Salicylates [Mass/Vol] mg/dL Low 3.0-30.0 [facility] Comment on above: Order Comment: Ezekiel ramirez Type: BLOOD SPECIMENOrdering Facility: [facility] Address: [address] [place] [address] Result Comment: The therapeutic range varies and has been reported to be 3.0 to 10.0 mg/dL for anti pyretic/analgesic conditions and 15.0 to 30.0 mg/dL for anti inflammatory/rheumatic fever conditions. Ranges published by the instrument rn disease management.Reference ranges and high/low indicator flags are provided as general guidelines only. The treating physician must determine appropriate target levels/dosing based on the specific clinical situation. Performed By: #### T OXP ####[facility] LABIA [id number] [place] [address] [place] TSH SerPl-aCncon 11-13-2024 TSH Qn 0.633 m[IU]/L Normal 0.270-4.200 [facility] Comment on above: Order Comment: Ezekiel ramirez Type: BLOOD SPECIMENOrdering Facility: [facility] Address: [address] [place] [address] Performed By: #### 2 777-1, 3016-3 ####[facility], INCIA [id number] [place] [address] [place] Upper GI endoscopyon 025 Upper GI endoscopy Normal [facility] VARICELLA ZOSTER IGGon 11-13 VARICELLA ZOSTER IGG, QUAL Positive Normal Positive [facility] Comment on above: Order Comment: Ezekiel ramirez Type: BLOOD SPECIMENOrdering Facility: [facility] Address: [address] [place] [address] Result Comment: The result suggests recent or past exposure to Varicella-Zoster virus or chickenpox vaccination or zoster vaccination. Positive result may also be seen due to presence of passively-transferred antibodies. Please correlate with patient's history. Performed By: #### 7 852-7, MEASLG, VZVG2, 1988- ####[facility] LABIA [id number] [place] [address] [place] Vit A SerPl-mCncon Retinol [Mass/Vol] 0.03 mg/L Low 0.30-1.20 [facility] Comment on above: Order Comment: Speci men Type: BLOOD SPECIMENOrdering Facility: [facility] Address: [address] [place] [address] Result Comment: This test was developed, and its performance characteristics determined by the [facility] Department of Pathology and Laboratory Medicine. It has not been cleared or approved by the FDA. The [facility] of Pathology and Laboratory Medicine is regulated under CLIA as qualified to perform high-complexity testing. This test is used for clinical purposes. It should not be regarded as investigational or for research. Performed By: #### 2 923-1, 1823-4 ####[facility], INCIA [id number] [address] Zinc SerPl-mCncon 11-13-2024 Zinc [Mass/Vol] 60 ug/dL Normal 60-120 [facility] Comment on above: Order Comment: Speci men Type: BLOOD SPECIMENOrdering Facility: [facility] Address: [address] [place] [address] Result Comment: This test was developed, and its performance characteristics determined by the [facility] Department of Pathology and Laboratory Medicine. It has not been cleared or approved by the FDA. The [facility] of Pathology and Laboratory Medicine is regulated under CLIA as qualified to perform high-complexity testing. This test is used for clinical purposes. It should not be regarded as investigational or for research. Performed By: #### 5 763-8 ####[facility] LABIA [id number] [place] [address] [place] AFP SerPl-mCncon 11-12-2024 AFP [Mass/Vol] 2.25 ng/mL Normal <9.00 [facility] Comment on above: Order Comment: Speci men Type: BLOOD SPECIMENOrdering Facility: [facility] Address: [address] [place] [address] Result Comment: The Alpha-Fetoprotein test was performed using the 1Castel DxI immunoenzymatic assay. Results obtained with different assay methods or kits cannot be used interchangeably. Performed By: #### 1 834-1 ####[facility] LABIA [id number] [address] [place] ARTERIAL BLOOD GASESon 11-12 Base deficit (BldA) [Moles/Vol] -8 mmol/L Low -2-0 [facility] Comment on above: Order Comment: Speci men Type: ARTERIAL BLOOD SPECIMENOrdering Facility: [facility] Address: [address] [place] [address] Performed By: #### A LLBG ####[facility] LABCLIA [id number] [place] [address] [place] Body temperature 98.6 [degF] Normal [facility] Comment on above: Order Comment: Speci men Type: ARTERIAL BLOOD SPECIMENOrdering Facility: [facility] Address: [address] [place] [address] Performed By: #### A LLBG ####[facility] LABCLIA [id number] [address] [place] Calcium.ionized (Bld) [Mass/Vol] 1.20 mmol/L Normal 1.08-1.30 [facility] Comment on above: Order Comment: Speci men Type: ARTERIAL BLOOD SPECIMENOrdering Facility: [facility] Address: [address] [place] [address] Performed By: #### A LLBG ####[facility] LABCLIA [id number] [place] [address] [place] Calcium.ionized adjusted to pH 7.4 (BldA) [Moles/Vol] 1.24 mmol/L Normal 1.08-1.30 [facility] Comment on above: Order Comment: Speci men Type: ARTERIAL BLOOD SPECIMENOrdering Facility: [facility] Address: [address] [place] [address] Performed By: #### A LLBG ####[facility] LABCLIA [id number] [address] [address] [place] Carboxyhemoglobin (BldA) [Mass fraction] 2.0 % Normal 0.0-2.0 [facility] Comment on above: Order Comment: Speci men Type: ARTERIAL BLOOD SPECIMENOrdering Facility: [facility] Address: [address] [place] [address] Result Comment: Carb oxyhemoglobin Reference Range for Smokers: 2.0-8.0% Performed By: #### A LLBG ####[facility] LABCLIA [id number] [place] [address] [place] CO2 (Bld) [Partial pressure] 21 mm Hg Low 36-46 [facility] Comment on above: Order Comment: Speci men Type: ARTERIAL BLOOD SPECIMENOrdering Facility: [facility] Address: [address] [place] [address] Performed By: #### A LLBG ####[facility] LABCLIA [id number] [place] [address] [place] Glucose [Mass/Vol] 276 mg/dL High 60-105 [facility] Comment on above: Order Comment: Speci men Type: ARTERIAL BLOOD SPECIMENOrdering Facility: [facility] Address: [address] [place] [address] Performed By: #### A LLBG ####[facility] LABCLIA [id number] [place] [id number] [place] HCO3 (Bld) [Moles/Vol] 15 mmol/L Low 22-26 [facility] Comment on above: Order Comment: Speci men Type: ARTERIAL BLOOD SPECIMENOrdering Facility: [facility] Address: [address] [place] [address] Performed By: #### A LLBG ####[facility] LABCLIA [id number] [place] [address] [place] Hematocrit (Bld) [Volume fraction] 22.4 % Low 39.0-51.0 [facility] Comment on above: Order Comment: Speci men Type: ARTERIAL BLOOD SPECIMENOrdering Facility: [facility] Address: [address] [place] [address] Performed By: #### A LLBG ####[facility] LABIA [id number] [place] [address] [place] Hemoglobin (Bld) [Mass/Vol] 7.2 g/dL Low 13.0-17.0 [facility] Comment on above: Order Comment: Speci men Type: ARTERIAL BLOOD SPECIMENOrdering Facility: [facility] Address: [address] [place] [address] Performed By: #### A LLBG ####[facility] LABIA [id number] [place] [address] [place] Lactate [Moles/Vol] 2.9 mmol/L High 0.5-2.2 [facility] Comment on above: Order Comment: Speci men Type: ARTERIAL BLOOD SPECIMENOrdering Facility: [facility] Address: [address] [place] [address] Performed By: #### A LLBG ####[facility] LABIA [id number] [place] [address] [place] Methemoglobin (Bld) [Mass fraction] 1.0 % Normal 0.0-1.5 [facility] Comment on above: Order Comment: Speci men Type: ARTERIAL BLOOD SPECIMENOrdering Facility: [facility] Address: [address] [place] [address] Performed By: #### A LLBG ####[facility] LABIA [id number] [place] [address] [place] O2 THERAPY RA=Room Air Normal [facility] Comment on above: Order Comment: Speci men Type: ARTERIAL BLOOD SPECIMENOrdering Facility: [facility] Address: [address] [place] [address] Performed By: #### A LLBG ####[facility] LABCLIA [id number] [address] [address] [place] Oxygen (Bld) [Partial pressure] 94 mm Hg Normal 85-95 [facility] Comment on above: Order Comment: Speci men Type: ARTERIAL BLOOD SPECIMENOrdering Facility: [facility] Address: [address] [place], [place] [address] Performed By: #### A LLBG ####[facility] LABCLIA [id number] [address] [address] [place] Oxyhemoglobin (BldA) [Mass fraction] 96 % Normal 95-98 [facility] Comment on above: Order Comment: Speci men Type: ARTERIAL BLOOD SPECIMENOrdering Facility: [facility] Address: [address] [place] [address] Performed By: #### A LLBG ####[facility] LABCLIA [id number] [place] [id number] [place] pH (Bld) 7.46 [pH] High 7.35-7.45 [facility] Comment on above: Order Comment: Speci men Type: ARTERIAL BLOOD SPECIMENOrdering Facility: [facility] Address: [address] [place] [address] Performed By: #### A LLBG ####[facility] LABCLIA [id number] [address] [address] [place] PO2 / FIO2 RATIO 448 mmHg Normal >300 [facility] Comment on above: Order Comment: Speci men Type: ARTERIAL BLOOD SPECIMENOrdering Facility: [facility] Address: [address] [place], [place] [address] Performed By: #### A LLBG ####[facility] LABCLIA [id number] [address] [place] [address] [place] Potassium [Moles/Vol] 3.9 mmol/L Normal 3.5-5.0 [facility] Comment on above: Order Comment: Speci men Type: ARTERIAL BLOOD SPECIMENOrdering Facility: [facility] Address: [address] [place] [address] Performed By: #### A LLBG ####[facility] LABCLIA [id number] [place] [id number] [place] Sodium [Moles/Vol] 124 mmol/L Low 136-144 [facility] Comment on above: Order Comment: Speci men Type: ARTERIAL BLOOD SPECIMENOrdering Facility: [facility] Address: [address] [place] [address] Performed By: #### A LLBG ####[facility] LABCLIA [id number] [place] [id number] [place] Bacteria Ur Culton Bacteria identified Cx Nom (U) Normal [facility] Comment on above: Performed By: #### 6 30-4, 19409-4 ####[facility] LABCLIA [id number] [place] [address] [place] Basic metabolic 2000 panelon 11-12-2024 Anion gap [Moles/Vol] 11 mmol/L Normal 8-15 [facility] Comment on above: Order Comment: Speci men Type: BLOOD SPECIMENOrdering Facility: [facility] Address: [address] [place] [address] Performed By: #### 2 4321-2, 26380-7, 2777-1 ####[facility] LABCLIA [id number] [place] [address] [place] Calcium [Mass/Vol] 9.2 mg/dL Normal 8.5-10.2 [facility] Comment on above: Order Comment: Speci men Type: BLOOD SPECIMENOrdering Facility: [facility] Address: [address] [place] [address] Performed By: #### 2 4321-2, 64914-6, 2777-1 ####[facility] LABCLIA [id number] [place] [id number] [place] Chloride [Moles/Vol] 99 mmol/L Normal 98-107 [facility] Comment on above: Order Comment: Speci men Type: BLOOD SPECIMENOrdering Facility: [facility] Address: [address] [place] [address] Performed By: #### 2 4321-2, 10386-9, 2777-1 ####[facility] LABIA [id number] [place] [address] [place] CO2 [Moles/Vol] 14 mmol/L Low 22-30 [facility] Comment on above: Order Comment: Speci men Type: BLOOD SPECIMENOrdering Facility: [facility] Address: [address] [place] [address] Performed By: #### 2 4321-2, 27652-0, 2777- ####[facility] LABIA [id number] [place] [address] [place] Creatinine [Mass/Vol] 1.22 mg/dL Normal 0.73-1.22 [facility] Comment on above: Order Comment: Speci men Type: BLOOD SPECIMENOrdering Facility: [facility] Address: [address] [place] [address] Performed By: #### 2 4321-2, 96914-4, 277-1 ####[facility] LABIA [id number] [place] [address] [place] Creatinine and Glomerular filtration rate.predicted panel (S/P/Bld) 69 mL/min/1.73m??? Normal >=60 [facility] Comment on above: Order Comment: Speci men Type: BLOOD SPECIMENOrdering Facility: [facility] Address: [address] [place] [address] Result Comment: Patric mated Glomerular Filtration Rate [...] actual GFR. Performed By: #### 2 4321-2, 11448-0, 2776- ####[facility] LABCLIA [id number] [place] [address] [place] Glucose [Mass/Vol] 304 mg/dL High 74-99 [facility] Comment on above: Order Comment: Speci men Type: BLOOD SPECIMENOrdering Facility: [facility] Address: [address] [place] [address] Result Comment: The [place] [employer] (ADA) provides guidance for cutoff [...] Standards of Medical Care in Diabetes 2016, [place] [employer]. Diabetes Care. 2016.39(Suppl 1). Performed By: #### 2 4321-2, 48723-3, 2776-08 ####[facility] LABIA [id number] [place] [id number] [place] Potassium [Moles/Vol] 4.3 mmol/L Normal 3.7-5.1 [facility] Comment on above: Order Comment: Speci men Type: BLOOD SPECIMENOrdering Facility: [facility] Address: [address] [place] [address] Performed By: #### 2 4321-2, 48720-0, 2777-1 ####[facility] LABCLIA [id number] [address] [address] [place] Sodium [Moles/Vol] 124 mmol/L Low 136-144 [facility] Comment on above: Order Comment: Speci men Type: BLOOD SPECIMENOrdering Facility: [facility] Address: [address] [place] [address] Performed By: #### 2 4321-2, 91011-6, 2777-1 ####[facility] LABCLIA [id number] [address] [address] [place] Urea nitrogen [Mass/Vol] 22 mg/dL Normal 9-24 [facility] Comment on above: Order Comment: Speci men Type: BLOOD SPECIMENOrdering Facility: [facility] Address: [address] [place] [address] Performed By: #### 2 4321-2, 71228-3, 2777- ####[facility] LABCLIA [id number] [place] [id number] [place] CASE MGT INIT ASSESon 2024 CASE MGT INIT ASSES Normal [facility] CBC panel Auto (Bld)on 11-12 Erythrocyte distribution width (RBC) [Ratio] 16.9 % High 11.5-15.0 [facility] Comment on above: Order Comment: Speci men Type: BLOOD SPECIMENOrdering Facility: [facility] Address: [address] [place] [address] Performed By: #### 5 8410-2 ####[facility] LABIA [id number] [place] [id number] [place] Hematocrit (Bld) [Volume fraction] 21.7 % Low 39.0-51.0 [facility] Comment on above: Order Comment: Speci men Type: BLOOD SPECIMENOrdering Facility: [facility] Address: [address] [place] [address] Performed By: #### 5 8410-2 ####[facility] LABIA [id number] [place] [address] [place] Hemoglobin (Bld) [Mass/Vol] 7.5 g/dL Low 13.0-17.0 [facility] Comment on above: Order Comment: Speci men Type: BLOOD SPECIMENOrdering Facility: [facility] Address: [address] [place] [address] Performed By: #### 5 8410-2 ####[facility] LABIA [id number] [place] [address] [place] MCH (RBC) [Entitic mass] 31.5 pg Normal 26.0-34.0 [facility] Comment on above: Order Comment: Speci men Type: BLOOD SPECIMENOrdering Facility: [facility] Address: [address] [place] [address] Performed By: #### 5 8410-2 ####[facility] [id number] [place] [address] [place] MCHC (RBC) [Mass/Vol] 34.6 g/dL Normal 30.5-36.0 [facility] Comment on above: Order Comment: Speci men Type: BLOOD SPECIMENOrdering Facility: [facility] Address: [address] [place] [address] Performed By: #### 5 8410-2 ####[facility] LABIA [id number] [place] [address] [place] MCV (RBC) [Entitic vol] 91.2 fL Normal 80.0-100.0 [facility] Comment on above: Order Comment: Speci men Type: BLOOD SPECIMENOrdering Facility: [facility] Address: [address] [place] [address] Performed By: #### 5 8410-2 ####[facility] LABIA [id number] [place] [address] [place] Nucleated RBC (Bld) [#/Vol] 10*3/uL Normal <0.01 [facility] Comment on above: Order Comment: Speci men Type: BLOOD SPECIMENOrdering Facility: [facility] Address: [address] [place] [address] Performed By: #### 5 8410-2 ####[facility] LABIA [id number] [place] [address] [place] Platelet mean volume (Bld) [Entitic vol] 10.8 fL Normal 9.0-12.7 [facility] Comment on above: Order Comment: Speci men Type: BLOOD SPECIMENOrdering Facility: [facility] Address: [address] [place] [address] Performed By: #### 5 8410-2 ####[facility] LABIA [id number] [place] [address] [place] Platelets (Bld) [#/Vol] 31 10*3/uL Low 150-400 [facility] Comment on above: Order Comment: Speci men Type: BLOOD SPECIMENOrdering Facility: [facility] Address: [address] [place] [address] Result Comment: Resu lts checked and verified.No clot detected. Performed By: #### 5 8410-2 ####[facility] LABIA [id number] [place] [address] [place] RBC (Bld) [#/Vol] 2.38 10*6/uL Low 4.20-6.00 [facility] Comment on above: Order Comment: Speci men Type: BLOOD SPECIMENOrdering Facility: [facility] Address: [address] [place] [address] Performed By: #### 5 8410-2 ####[facility] LABCLIA [id number] [place] [address] [place] WBC (Bld) [#/Vol] 6.35 10*3/uL Normal 3.70-11.00 [facility] Comment on above: Order Comment: Speci men Type: BLOOD SPECIMENOrdering Facility: [facility] Address: [address] [place] [address] Performed By: #### 5 8410-2 ####[facility] LABCLIA [id number] [place] [address] [place] Erythrocyte distribution width (RBC) [Ratio] 17.3 % High 11.5-15.0 [facility] Comment on above: Order Comment: Speci men Type: BLOOD SPECIMENOrdering Facility: [facility] Address: [address] [place] [address] Performed By: #### 5 8410-2 ####[facility] LABIA [id number] [place] [address] [place] Hematocrit (Bld) [Volume fraction] 22.9 % Low 39.0-51.0 [facility] Comment on above: Order Comment: Speci men Type: BLOOD SPECIMENOrdering Facility: [facility] Address: [address] [place] [address] Performed By: #### 5 8410-2 ####[facility] LABIA [id number] [place] [address] [place] Hemoglobin (Bld) [Mass/Vol] 7.9 g/dL Low 13.0-17.0 [facility] Comment on above: Order Comment: Speci men Type: BLOOD SPECIMENOrdering Facility: [facility] Address: [address] [place] [address] Performed By: #### 5 8410-2 ####[facility] LABIA [id number] [place] [address] [place] MCH (RBC) [Entitic mass] 31.5 pg Normal 26.0-34.0 [facility] Comment on above: Order Comment: Speci men Type: BLOOD SPECIMENOrdering Facility: [facility] Address: [address] [place] [address] Performed By: #### 5 8410-2 ####[facility] LABCLIA [id number] [place] [address] [place] MCHC (RBC) [Mass/Vol] 34.5 g/dL Normal 30.5-36.0 [facility] Comment on above: Order Comment: Speci men Type: BLOOD SPECIMENOrdering Facility: [facility] Address: [address] [place] [address] Performed By: #### 5 8410-2 ####[facility] LABCLIA [id number] [place] [address] [place] MCV (RBC) [Entitic vol] 91.2 fL Normal 80.0-100.0 C [facility] Comment on above: Order Comment: Speci men Type: BLOOD SPECIMENOrdering Facility: [facility] Address: [address] [place] [address] Performed By: #### 5 8410-2 ####[facility] LABIA [id number] [place] [address] [place] Nucleated RBC (Bld) [#/Vol] 10*3/uL Normal <0.01 [facility] Comment on above: Order Comment: Speci men Type: BLOOD SPECIMENOrdering Facility: [facility] Address: [address] [place] [address] Performed By: #### 5 8410-2 ####[facility] LABCLIA [id number] [place] [address] [place] Platelet mean volume (Bld) [Entitic vol] 11.6 fL Normal 9.0-12.7 [facility] Comment on above: Order Comment: Speci men Type: BLOOD SPECIMENOrdering Facility: [facility] Address: [address] [place] [address] Performed By: #### 5 8410-2 ####[facility] LABCLIA [id number] [place] [address] [place] Platelets (Bld) [#/Vol] 33 10*3/uL Low 150-400 [facility] Comment on above: Order Comment: Speci men Type: BLOOD SPECIMENOrdering Facility: [facility] Address: [address] [place] [address] Result Comment: Resu lts checked and verified.No clot detected. Performed By: #### 5 8410-2 ####[facility] LABCLIA [id number] [place] [address] [place] RBC (Bld) [#/Vol] 2.51 10*6/uL Low 4.20-6.00 [facility] Comment on above: Order Comment: Speci men Type: BLOOD SPECIMENOrdering Facility: [facility] Address: [address] [place] [address] Performed By: #### 5 8410-2 ####[facility] LABCLIA [id number] [place] [address] [place] WBC (Bld) [#/Vol] 7.27 10*3/uL Normal 3.70-11.00 [facility] Comment on above: Order Comment: Speci men Type: BLOOD SPECIMENOrdering Facility: [facility] Address: [address] [place] [address] Performed By: #### 5 8410-2 ####[facility] LABCLIA [id number] [place] [address] [place] CITRATED PLATELET COUNTon CITRATED PLATELET COUNT (WAM) 33 k/uL Low 150-400 [facility] Comment on above: Order Comment: Speci men Type: BLOOD SPECIMENOrdering Facility: [facility] Address: [address] [place] [address] Result Comment: Plat elet count confirmed by manual review of peripheral blood smear. No clot detected. Performed By: #### C ITPLT ####[facility] LABCLIA [id number] [place] [address] [place] CNCNPATEDon 11-12-2024 CNCNPATED Normal [facility] CNPNon 11-12-2024 CNPN Normal [facility] CONFIRM BLOOD TYPEon 025 ABO O Normal [facility] Comment on above: Order Comment: Speci men Type: BLOOD SPECIMENOrdering Facility: [facility] Address: [address] [place] [address] Performed By: #### C ONABO ####[facility] BLOOD BANKCLIA [id number] [place] [address] [place] Rh Nom (Bld) Positive Normal [facility] Comment on above: Order Comment: Speci men Type: BLOOD SPECIMENOrdering Facility: [facility] Address: [address] [place] [address] Performed By: #### C ONABO ####[facility] BLOOD BANKIA [id number] [place] [address] [place] CONSULTon 11-12-2024 CONSULT Normal [facility] CONSULT Normal [facility] CONSULT Normal [facility] CONSULT Normal [facility] CONSULT Normal [facility] CONSULT Normal [facility] CT CHEST WO IVCONon 11-13-19 CT CHEST WO IVCON Normal [facility] D dimer FEU PPP-mCncon 11-12 Fibrin D-dimer FEU (PPP) [Mass/Vol] 3850 ng/mL FEU High <500 [facility] Comment on above: Order Comment: Speci men Type: BLOOD SPECIMENOrdering Facility: [facility] Address: [address] [place] [address] Performed By: #### 4 8065-7 ####[facility] LABCLIA [id number] [place] [address] [place] ECHO WITH AGITATED SALINE CO NTRASTon 11-12-2024 ECHO WITH AGITATED SALINE CONTRAST Normal [facility] Fibrin D-dimer FEU (PPP) [Ma ss/Vol]on 11-12-2024 D DIMER AGE-RELATED CUTOFF 580 ng/mL FEU Normal [facility] Comment on above: Order Comment: Speci men Type: BLOOD SPECIMENOrdering Facility: [facility] Address: [address] [place] [address] Performed By: #### 4 8065-7 ####[facility] LABCLIA [id number] [place] [address] [place] Hepatic function 2000 panelo n 11-12-2024 Albumin [Mass/Vol] 3.0 g/dL Low 3.9-4.9 [facility] Comment on above: Order Comment: Speci men Type: BLOOD SPECIMENOrdering Facility: [facility] Address: [address] [place] [address] Performed By: #### 2 4321-2, 13934-2, 2777-1 ####[facility] LABIA [id number] [place] [address] [place] ALP [Catalytic activity/Vol] 252 U/L High 38-113 [facility] Comment on above: Order Comment: Speci men Type: BLOOD SPECIMENOrdering Facility: [facility] Address: [address] [place] [address] Performed By: #### 2 4321-2, 88053-7, 2777-1 ####[facility] LABIA [id number] [place] [address] [place] ALT [Catalytic activity/Vol] 24 U/L Normal 10-54 [facility] Comment on above: Order Comment: Speci men Type: BLOOD SPECIMENOrdering Facility: [facility] Address: [address] [place] [address] Performed By: #### 2 4321-2, 83319-1, 2777-1 ####[facility] LABCLIA [id number] [place] [id number] [place] AST [Catalytic activity/Vol] 41 U/L High 14-40 [facility] Comment on above: Order Comment: Speci men Type: BLOOD SPECIMENOrdering Facility: [facility] Address: [address] [place] [address] Performed By: #### 2 4321-2, 51697-1, 2776- ####[facility] LABCLIA [id number] [facility] [place] [address] [place] Bilirubin [Mass/Vol] 1.8 mg/dL High 0.2-1.3 [facility] Comment on above: Order Comment: Speci men Type: BLOOD SPECIMENOrdering Facility: [facility] Address: [address] [place] [address] Performed By: #### 2 4321-2, 60402-4, 2776-08 ####[facility] LABCLIA [id number] [place] [address] [place] Bilirubin.conjugated [Mass/Vol] 0.9 mg/dL High <0.3 [facility] Comment on above: Order Comment: Speci men Type: BLOOD SPECIMENOrdering Facility: [facility] Address: [address] [place] [address] Result Comment: Resu lts may be falsely decreased due to interference from hemolysis. Suggest reorder as clinically indicated. Performed By: #### 2 4321-2, 37450-0, 2776- ####[facility] LABCLIA [id number] [place] [id number] [place] Protein [Mass/Vol] 5.5 g/dL Low 6.3-8.0 [facility] Comment on above: Order Comment: Speci men Type: BLOOD SPECIMENOrdering Facility: [facility] Address: [address] [place] [address] Performed By: #### 2 4321-2, 40086-5, 2776-1 ####[facility] LABCLIA [id number] [place] [id number] [place] MEDICAL EMERon 11-12-2024 MEDICAL KRISTINA Normal [facility] NURSING PROGon 11-12-2024 NURSING PROG Normal [facility] NURSING PROG Normal [facility] NURSING PROG Normal [facility] NURSING PROG Normal [facility] NUTRITIONon 11-12-2024 NUTRITION Normal [facility] PTT, ANTICOAGULANT THERAPYon 11-12-2024 aPTT Coag (PPP) [Time] 62.6 s High 23.0-32.4 [facility] Comment on above: Order Comment: Speci men Type: BLOOD SPECIMENOrdering Facility: [facility] Address: [address] [place] [address] Performed By: #### P TTAC ####[facility] LABCLIA [id number] [place] [address] [place] Phosphate SerPl-mCncon 11-12 Phosphate [Mass/Vol] 2.3 mg/dL Low 2.7-4.8 [facility] Comment on above: Order Comment: Speci men Type: BLOOD SPECIMENOrdering Facility: [facility] Address: [address] [place] [address] Performed By: #### 2 4321-2, 19475-6, 2777-1 ####[facility] LABCLIA [id number] [place] [address] [place] SOCIAL WORKon 11-12-2024 SOCIAL WORK Normal [facility] THERAPY NTon 11-12-2024 THERAPY NT Normal [facility] THERAPY NT Normal [facility] THROMBOGRAPH PANELon 025 Clot angle TEG (Bld) [Angle] 32.8 degrees Low 47.0-74.0 [facility] Comment on above: Order Comment: Speci men Type: BLOOD SPECIMENOrdering Facility: [facility] Address: [address] [place] [address] Performed By: #### T EGPNP ####[facility] LABCLIA [id number] [facility] [id number] [place] [address] Clot Lysis 30 Min post maximum clot amplitude TEG (Bld) [Length fraction] 0.0 % Normal 0.0-8.0 [facility] Comment on above: Order Comment: Speci men Type: BLOOD SPECIMENOrdering Facility: [facility] Address: [address] [place] [address] Performed By: #### T EGPNP ####[facility] LABIA [id number] [address] [place] Clotting time TEG (Bld) 5.0 minutes Normal 4.0-10.0 [facility] Comment on above: Order Comment: Speci men Type: BLOOD SPECIMENOrdering Facility: [facility] Address: [address] [place] [address] Performed By: #### T EGPNP ####[facility] LABIA [id number] [address] [place] Coagulation index TEG Qn (Bld) -8.4 Low -4.6-3.2 [facility] Comment on above: Order Comment: Speci men Type: BLOOD SPECIMENOrdering Facility: [facility] Address: [address] [place] [address] Result Comment: This test was developed, and its performance characteristics determined by the [facility] Department of Pathology and Laboratory Medicine. It has not been cleared or approved by the FDA. The [facility] Department of Pathology and Laboratory Medicine is regulated under CLIA as qualified to perform high-complexity testing. This test is used for clinical purposes. It should not be regarded as investigational or for research. Performed By: #### T EGPNP ####[facility] LABCLIA [id number] [address] [place] Maximum clot firmness TEG (Bld) [Length] 28.5 mm Low 51.0-75.0 [facility] Comment on above: Order Comment: Speci men Type: BLOOD SPECIMENOrdering Facility: [facility] Address: [address] [place] [address] Performed By: #### T EGPNP ####[facility] LABCLIA [id number] [place] [address] [place] Thromboelastography after addtion of heparinase panel (Bld) Normal [facility] Comment on above: Order Comment: Speci men Type: BLOOD SPECIMENOrdering Facility: [facility] Address: [address] [place] [address] Result Comment: A th romboelastograph (TEG) study [...] timely manner. Performed By: #### T EGPNP ####[facility] LABIA [id number] [place] [address] [place] TOXICOLOGY SCREEN, ROUTINE U RINEon 11-12-2024 Amphetamines Confirm (U) [Mass/Vol] Negative Normal Negative [facility] Comment on above: Order Comment: Speci men Type: URINE SPECIMENOrdering Facility: [facility] Address: [address] [place] [address] Result Comment: Cuto ff threshold at 1000 ng/mL. Performed By: #### U TOX2 ####[facility] LABIA [id number] [place] [address] [place] BARBITURATES, URINE Negative Normal Negative [facility] Comment on above: Order Comment: Speci men Type: URINE SPECIMENOrdering Facility: [facility] Address: [address] [place] [address] Result Comment: Cuto ff threshold at 200 ng/mL. Performed By: #### U TOX2 ####[facility] LABCLIA [id number] [place] [address] [place] BENZODIAZEPINES, UR Negative Normal Negative [facility] Comment on above: Order Comment: Speci men Type: URINE SPECIMENOrdering Facility: [facility] Address: [address] [place] [address] Result Comment: Cuto ff threshold at 200 ng/mL. Performed By: #### U TOX2 ####[facility] LABCLIA [id number] [place] [address] [place] Cannabinoids Screen Ql (U) Negative Normal Negative [facility] Comment on above: Order Comment: Speci men Type: URINE SPECIMENOrdering Facility: [facility] Address: [address] [place] [address] Result Comment: Cuto ff threshold at 50 ng/mL. Performed By: #### U TOX2 ####[facility] LABCLIA [id number] [place] [address] [place] Cocaine Ql (U) Negative Normal Negative [facility] Comment on above: Order Comment: Speci men Type: URINE SPECIMENOrdering Facility: [facility] Address: [address] [place] [address] Result Comment: Cuto ff threshold at 300 ng/mL. Performed By: #### U TOX2 ####[facility] LABCLIA [id number] [place] [address] [place] Ethanol (U) [Mass/Vol] <11 Normal <11 [facility] Comment on above: Order Comment: Speci men Type: URINE SPECIMENOrdering Facility: [facility] Address: [address] [place] [address] Performed By: #### U TOX2 ####[facility] LABCLIA [id number] [place] [address] [place] Opiates Screen Ql (U) Negative Normal Negative [facility] Comment on above: Order Comment: Speci men Type: URINE SPECIMENOrdering Facility: [facility] Address: [address] [place] [address] Result Comment: Cuto ff threshold at 300 ng/mL. Performed By: #### U TOX2 ####[facility] LABCLIA [id number] [place] [address] [place] oxyCODONE cutoff Screen (U) [Mass/Vol] Positive Abnormal Negative [facility] Comment on above: Order Comment: Speci men Type: URINE SPECIMENOrdering Facility: [facility] Address: [address] [place] [address] Result Comment: Cuto ff threshold at 100 ng/mL. Performed By: #### U TOX2 ####[facility] LABCLIA [id number] [place] [address] [place] Phencyclidine Ql (U) Negative Normal Negative [facility] Comment on above: Order Comment: Speci men Type: URINE SPECIMENOrdering Facility: [facility] Address: [address] [place] [address] Result Comment: Cuto ff threshold at 25 ng/mL. Performed By: #### U TOX2 ####[facility] LABCLIA [id number] [place] [address] [place] TYPE + SCREENon 11-12-2024 ABO O Normal [facility] Comment on above: Order Comment: Speci men Type: BLOOD SPECIMENOrdering Facility: [facility] Address: [address] [place] [address] Performed By: #### T SCR ####[facility] BLOOD BANKCLIA [id number] [address] [id number] [address] [place] Rh Nom (Bld) Positive Normal [facility] Comment on above: Order Comment: Speci men Type: BLOOD SPECIMENOrdering Facility: [facility] Address: [address] [place] [address] Performed By: #### T SCR ####CC [facility] BLOOD [facility] [id number] [address] [address] [place] TYPE AND SCREEN EXPIRATION 11/15/2024 23:59 Normal [facility] Comment on above: Order Comment: Speci men Type: BLOOD SPECIMENOrdering Facility: [facility] Address: [address] [place] [address] Performed By: #### T SCR ####CC [facility] BLOOD [facility] [id number] [place] [address] [place] Urinalysis complete panel (U )on 11-12-2024 BACTERIA UL 1553.2 uL High Negative [facility] Comment on above: Order Comment: Speci men Type: URINE SPECIMENOrdering Facility: [facility] Address: [address] [place] [address] Performed By: #### 6 30-4, 16776-2 ####[facility] LABIA [id number] [place] [address] [place] Bilirubin Ql (U) 1+ Abnormal Negative [facility] Comment on above: Order Comment: Speci men Type: URINE SPECIMENOrdering Facility: [facility] Address: [address] [place] [address] Result Comment: Sugg est correlation with clinical findings and serum bilirubin if clinically indicated. Performed By: #### 6 30-4, 11109-7 ####[facility] LABIA [id number] [place] [address] [place] Clarity (Unsp spec) Cloudy Abnormal Clear [facility] Comment on above: Order Comment: Speci men Type: URINE SPECIMENOrdering Facility: [facility] Address: [address] [place] [address] Performed By: #### 6 30-4, 25882-7 ####[facility] LABCLIA [id number] [address], [address] [place] Color (U) Gates Abnormal Yellow [facility] Comment on above: Order Comment: Speci men Type: URINE SPECIMENOrdering Facility: [facility] Address: [address] [place] [address] Performed By: #### 6 30-4, 42862-9 ####[facility] LABCLIA [id number] [address], [place] [address] [place] Epithelial cells LM.HPF (Urine sed) [#/Area] None Seen Normal [facility] Comment on above: Order Comment: Speci men Type: URINE SPECIMENOrdering Facility: [facility] Address: [address] [place] [address] Performed By: #### 6 30-, 63428-1 ####[facility] LABCLIA [id number] [address] [facility] Glucose Test strip (U) [Mass/Vol] Negative Normal Negative [facility] Comment on above: Order Comment: Speci men Type: URINE SPECIMENOrdering Facility: [facility] Address: [address] [place] [address] Performed By: #### 6 30-4, 08654-4 ####[facility] LABCLIA [id number] [address], [place] [address] [place] Hemoglobin Ql (U) 3+ Abnormal Negative [facility] Comment on above: Order Comment: Speci men Type: URINE SPECIMENOrdering Facility: [facility] Address: [address] [place] [address] Performed By: #### 6 30-4, 91585-9 ####[facility] LABCLIA [id number] [address], [facility] [place] Hyaline casts (Urine sed) [#/Area] 0 /[LPF] Normal 0 /LPF [facility] Comment on above: Order Comment: Speci men Type: URINE SPECIMENOrdering Facility: [facility] Address: [address] [place] [address] Performed By: #### 6 30-4, 84288-6 ####[facility] LABCLIA [id number] [facility] [id number] [address] [place] Ketones Ql (U) Negative Normal Negative [facility] Comment on above: Order Comment: Speci men Type: URINE SPECIMENOrdering Facility: [facility] Address: [address] [place] [address] Performed By: #### 6 30-4, 18441-0 ####[facility] LABCLIA [id number] [address] [place] [address] [place] Leukocyte esterase Test strip Ql (U) 2+ Abnormal Negative [facility] Comment on above: Order Comment: Speci men Type: URINE SPECIMENOrdering Facility: [facility] Address: [address] [place] [address] Performed By: #### 6 30-4, 16891-6 ####[facility] LABCLIA [id number] [address] [place] [address] [place] Nitrite Ql (U) Negative Normal Negative [facility] Comment on above: Order Comment: Speci men Type: URINE SPECIMENOrdering Facility: [facility] Address: [address] [place] [address] Performed By: #### 6 30-4, 63740-6 ####[facility] LABCLIA [id number] [address] [place] [address] [place] pH (U) 6.0 [pH] Normal <8.5 [facility] Comment on above: Order Comment: Speci men Type: URINE SPECIMENOrdering Facility: [facility] Address: [address] [place], [place] [address] Performed By: #### 6 30-4, 49316-7 ####[facility] LABIA [id number] [place] [address] [place] Protein (U) [Mass/Vol] 3+ Abnormal Negative [facility] Comment on above: Order Comment: Speci men Type: URINE SPECIMENOrdering Facility: [facility] Address: [address] [place] [address] Performed By: #### 6 30-4, 95817-1 ####[facility] LABIA [id number] [place] [address] [place] RBC LM.HPF (Urine sed) [#/Area] /[HPF] Abnormal 0-2 /HPF [facility] Comment on above: Order Comment: Speci men Type: URINE SPECIMENOrdering Facility: [facility] Address: [address] [place] [address] Performed By: #### 6 30-4, 92567-8 ####[facility] [id number] [place] [address] [place] Specific gravity (U) [Rel density] 1.019 Normal 1.005-1.030 [facility] Comment on above: Order Comment: Speci men Type: URINE SPECIMENOrdering Facility: [facility] Address: [address] [place] [address] Performed By: #### 6 30-4, 52636-7 ####[facility] INCIA [id number] [place] [address] [place] Urobilinogen Ql (U) 0.2 EU/dL Normal 0.2-1.0 EU/dL [facility] Comment on above: Order Comment: Speci men Type: URINE SPECIMENOrdering Facility: [facility] Address: [address] [place] [address] Performed By: #### 6 30-4, 03367-4 ####[facility] LABIA [id number] [place] [address] [place] WBC LM.HPF (Urine sed) [#/Area] /[HPF] Abnormal 0-5 /HPF [facility] Comment on above: Order Comment: Speci men Type: URINE SPECIMENOrdering Facility: [facility] Address: [address] [place] [address] Performed By: #### 6 30-4, 95308-9 ####[facility] LABCLIA [id number] [place] [address] [place] ALLIED HEALTHon 11-11-2024 ALLIED HEALTH Normal [facility] ALLIED HEALTH Normal [facility] ANTI PLT FACTOR 4 ABon 11-11 Heparin induced platelet IgG Marco Antonio (S) [Interp] Negative Normal Negative [facility] Comment on above: Order Comment: Speci men Type: BLOOD SPECIMENOrdering Facility: [facility] Address: [address] [place] [address] Result Comment: No a nti-platelet factor 4 IgG antibody is detected by ANDERS assay.Heparin-induced thrombocytopenia (HIT) is unlikely, but should be excluded based on clinical factors. Performed By: #### P LATF4 ####[facility] LABIA [id number] [place] [address] [place] Platelet factor 4 Qn (PPP) 0.184 OD Normal <0.400 [facility] Comment on above: Order Comment: Speci men Type: BLOOD SPECIMENOrdering Facility: [facility] Address: [address] [place] [address] Result Comment: Not calculated Performed By: #### P LATF4 ####[facility] LABCLIA [id number] [place] [address] [place] Albumin Fld-mCncon 5 Albumin (Body fld) [Mass/Vol] <0.2 Normal See Comment [facility] Comment on above: Order Comment: Speci men Type: FLUID SPECIMENOrdering Facility: [facility] Address: [address] [place] [address] Result Comment: Body Fluid Albumin may be [...] document C49A. PAULETTE Diaz: Clinical Laboratory Standards [place]: 2007.2. Amy JACKSON. Serum to ascites albumin gradient. UpToDate. 2015. Accessed on November 15, 2015.This test was developed, and its performance characteristics determined by the [facility] Department of Pathology and Laboratory Medicine. It has not been cleared or approved by the FDA. The [facility] Department of Pathology and Laboratory Medicine is regulated under CLIA as qualified to perform high-complexity testing. This test is used for clinical purposes. It should not be regarded as investigational or for research. Performed By: #### 1 747-5, 1795-4, 34715-1, 2881-1 ####[facility] [id number] [place] [address] [place] Fluid Nom (Body fld) Abdomen Normal [facility] Comment on above: Order Comment: Speci men Type: FLUID SPECIMENOrdering Facility: [facility] Address: [address] [place] [address] Performed By: #### 1 747-5, 1795-4, 89661-7, 2881-1 ####[facility] INCIA [id number] [place] [address] [place] Amylase Fld-cCncon 5 Amylase (Body fld) [Catalytic activity/Vol] 14 U/L Normal See Comment [facility] Comment on above: Order Comment: Speci men Type: FLUID SPECIMENOrdering Facility: [facility] Address: [address] [place] [address] Result Comment: PLEU RAL FLUIDS:Amylase measurement in [...] document C49-A. PAULETTE Diaz: Clinical Laboratory Standards [place]; 2007.3. Kelby CONCEPCION, John BRAR, Star DJ. Use of cyst fluid CEA, CA19-9, and amylase for evaluation of pancreatic lesions. Clinical Biochemistry. 2009;42:3956-9614.This test was developed, and its performance characteristics determined by the [facility] Department of Pathology and Laboratory Medicine. It has not been cleared or approved by the FDA. The [facility] Department of Pathology and Laboratory Medicine is regulated under CLIA as qualified to perform high-complexity testing. This test is used for clinical purposes. It should not be regarded as investigational or for research. Performed By: #### 1 747-5, 1795-4, 20943-6, 2881-1 ####[facility] LABCLIA [id number] [place] [id number] [place] Antithrombin Ag actual/philly l IA (PPP) [Relative mass conc]on 11-11-2024 Antithrombin Ag IA Qn (PPP) 32 % Low 80-120 [facility] Comment on above: Order Comment: Speci men Type: BLOOD SPECIMENOrdering Facility: [facility] Address: [address] [place] [address] Performed By: #### L [id number], HCOAG, 6303-2, 18759-9, 46222-3 ####[facility] LABCLIA [id number] [place] [address] [place] BODY FLUID CELL COUNTon 04-1 Clarity (Unsp spec) Clear Normal Clear [facility] Comment on above: Order Comment: Speci men Type: FLUID SPECIMENOrdering Facility: [facility] Address: [address] [place] [address] Performed By: #### C CBF, [id number] ####[facility] LABCLIA [id number] [place] [address] [place] Color (Body fld) Colorless Normal Yellow [facility] Comment on above: Order Comment: Speci men Type: FLUID SPECIMENOrdering Facility: [facility] Address: [address] [place] [address] Performed By: #### C CBF, [id number] ####[facility] LABCLIA [id number] [place] [address] [place] RBC Manual cnt (Body fld) [#/Vol] 2000 /uL High <2000 [facility] Comment on above: Order Comment: Speci men Type: FLUID SPECIMENOrdering Facility: [facility] Address: [address] [place] [address] Performed By: #### C CBF, [id number] ####[facility] LABCLIA [id number] [place] [id number] [place] Specimen source Nom (Body fld) Abdomen Normal [facility] Comment on above: Order Comment: Speci men Type: FLUID SPECIMENOrdering Facility: [facility] Address: [address] [place] [address] Performed By: #### C CBF, [id number] ####[facility] LABCLIA [id number] [place] [address] [place] WBC Manual cnt (Body fld) [#/Vol] 70 /uL Normal <1000 [facility] Comment on above: Order Comment: Speci men Type: FLUID SPECIMENOrdering Facility: [facility] Address: [address] [place] [address] Performed By: #### C CBF, [id number] ####[facility] LABCLIA [id number] [place] [address] [place] Bacteria Bld Culton 11-12-19 25 Bacteria identified Cx Nom (Bld) CULTURE, BLOOD: No growth 5 days GRAM STAIN: This blood culture had less than the recommended 8 ml per bottle, which could decrease the sensitivity of the test. Normal [facility] Comment on above: Performed By: #### 6 00-7 ####[facility] LABIA [id number] [address] [place] Bacteria identified Cx Nom (Bld) CULTURE, BLOOD: No growth 5 days Normal [facility] Comment on above: Performed By: #### 6 00-7 ####[facility] LABCLIA [id number] [place] [address] [place] Bacteria Fld Culton 11-12-19 25 Bacteria identified Cx Nom (Body fld) CULTURE, BODY FLD: No growth GRAM STAIN: No organisms seen Many Polymorphonuclear leukocytes Gram stain performed on cytospun specimen. Gram stain from primary specimen Normal [facility] Comment on above: Performed By: #### 6 35-3, 611-4 ####[facility] LABCLIA [id number] [place] [address] [place] Bacteria Spec Anaerobe Culto n 11-11-2024 Bacteria identified Anaer cx Nom (Unsp spec) Negative Normal [facility] Comment on above: Performed By: #### 6 35-3, 611-4 ####[facility] LABCLIA [id number] [address] [address] [place] Basic metabolic 2000 panelon 11-11-2024 Anion gap [Moles/Vol] 12 mmol/L Normal 8-15 [facility] Comment on above: Order Comment: Speci men Type: BLOOD SPECIMENOrdering Facility: [facility] Address: [address] [place] [address] Performed By: #### 2 276-4, 10447-1, 45967-1, 03106-1, 2777-1, 76305-8 ####[facility] LABCLIA [id number] [address] [address] [place] Calcium [Mass/Vol] 9.1 mg/dL Normal 8.5-10.2 [facility] Comment on above: Order Comment: Speci men Type: BLOOD SPECIMENOrdering Facility: [facility] Address: [address] [place] [address] Performed By: #### 2 276-4, 57904-1, 04079-9, 24512-5, 2777-1, 46520-0 ####[facility] LABCLIA [id number] [place] [id number] [place] Chloride [Moles/Vol] 97 mmol/L Low 98-107 [facility] Comment on above: Order Comment: Speci men Type: BLOOD SPECIMENOrdering Facility: [facility] Address: [address] [place] [address] Performed By: #### 2 276-4, 77705-4, 00870-2, 85816-6, 2777-1, 86125-1 ####[facility] LABCLIA [id number] [place] [id number] [place] CO2 [Moles/Vol] 14 mmol/L Low 22-30 [facility] Comment on above: Order Comment: Speci men Type: BLOOD SPECIMENOrdering Facility: [facility] Address: [address] [place] [address] Performed By: #### 2 276-4, 20446-1, 86522-1, 39316-4, 2777-1, 05868-9 ####[facility] LABIA [id number] [address] [address] [place] Creatinine [Mass/Vol] 1.35 mg/dL High 0.73-1.22 [facility] Comment on above: Order Comment: Speci men Type: BLOOD SPECIMENOrdering Facility: [facility] Address: [address] [place] [address] Performed By: #### 2 276-4, 78371-9, 67180-6, 57351-5, 7-1, 94841-7 ####[facility] [id number] [place] [address] [place] Creatinine and Glomerular filtration rate.predicted panel (S/P/Bld) 61 mL/min/1.73m??? Normal >=60 [facility] Comment on above: Order Comment: Speci men Type: BLOOD SPECIMENOrdering Facility: [facility] Address: [address] [place] [address] Result Comment: Patric mated Glomerular Filtration Rate [...] actual GFR. Performed By: #### 2 276-4, 30937-8, 14313-6, 29475-9, 2777-1, 21503-1 ####[facility] [id number] [address] [address] [place] Glucose [Mass/Vol] 292 mg/dL High 74-99 [facility] Comment on above: Order Comment: Speci men Type: BLOOD SPECIMENOrdering Facility: [facility] Address: [address] [place], [place] [address] Result Comment: The [place] [employer] (ADA) provides guidance for cutoff [...] Standards of Medical Care in Diabetes 2016, [place] [employer]. Diabetes Care. 2016.39(Suppl 1). Performed By: #### 2 276-4, 28356-9, 84967-4, 05270-0, 2776-1, ####[facility] LABCLIA [id number] [place] [id number] [place] Potassium [Moles/Vol] 3.6 mmol/L Low 3.7-5.1 [facility] Comment on above: Order Comment: Speci men Type: BLOOD SPECIMENOrdering Facility: [facility] Address: [address] [place] [address] Performed By: #### 2 276-4, 08707-4, 81384-0, 80250-4, 2776-, ####[facility] LABIA [id number] [place] [id number] [place] Sodium [Moles/Vol] 123 mmol/L Low 136-144 [facility] Comment on above: Order Comment: Speci men Type: BLOOD SPECIMENOrdering Facility: [facility] Address: [address] [place] [id number] Performed By: #### 2 276-4, 00283-4, 41916-6, 13972-5, 2776-1, ####[facility] LABIA [id number] [place] [id number] [place] Urea nitrogen [Mass/Vol] 22 mg/dL Normal 9-24 [facility] Comment on above: Order Comment: Speci james Type: BLOOD SPECIMENOrdering Facility: [facility] Address: [address] [place] [address] Performed By: #### 2 276-4, 62833-2, 05641-9, 06830-2, 2777-1, 65212-5 ####[facility] LABCLIA [id number] [place] [address] [place] CARDIOLIPIN IGG ABSon 2024 Cardiolipin IgG IA Qn (S) <9.0 Normal <15.0 [facility] Comment on above: Order Comment: Spechelder ramirez Type: BLOOD SPECIMENOrdering Facility: [facility] Address: [address] [place] [address] Result Comment: <15 GPL [id number] GPL Indeterminate>20 GPL PositiveThe following results were obtained with the Inova QUANTA Lite TEZ IgG III ANDERS. Cardiolipin IgG values obtained with the different manufacturers' assay methods may not be used interchangeably. The magnitude of the reported IgG levels cannot be correlated to an endpoint titer. Performed By: #### 5 076-5KATHI CARDIM ####[facility] LABCLIA [id number] [place] [address] [place] CARDIOLIPIN IGM ABSon 2024 Cardiolipin IgM IA Qn (S) <9.0 Normal <12.5 [facility] Comment on above: Order Comment: Speci men Type: BLOOD SPECIMENOrdering Facility: [facility] Address: [address] [place] [address] Result Comment: <12. 5 MPL Esvrrrwr76.5-20 MPL Indeterminate>20 MPL PositiveThe following results were obtained with the Inova QUANTA Lite TEZ IgM III ANDERS. Cardiolipin IgM values obtained with the different manufacturers' assay methods may not be used interchangeably. The magnitude of the reported IgM levels cannot be correlated to an endpoint titer.??? Performed By: #### 5 076-5KATHI CARDIM ####[facility] LABCLIA [id number] [address] [address] [place] CASE MANAGEMon 11-11-2024 CASE MANAGEM Normal [facility] CBC W Auto Differential pane l (Bld)on 11-11-2024 Basophils (Bld) [#/Vol] 0.04 10*3/uL Normal <0.11 [facility] Comment on above: Order Comment: Speci men Type: BLOOD SPECIMENOrdering Facility: [facility] Address: [address] [place] [address] Performed By: #### I PFR, 61362-3, 24927-1 ####[facility] LABCLIA [id number] [place] [address] [place] Basophils/100 WBC (Bld) 0.4 % Normal [facility] Comment on above: Order Comment: Speci men Type: BLOOD SPECIMENOrdering Facility: [facility] Address: [address] [place] [address] Performed By: #### I PFR, 11647-9, 57545-3 ####[facility] LABCLIA [id number] [place] [address] [place] Differential cell count method Nom (Bld) Auto Normal [facility] Comment on above: Order Comment: Speci men Type: BLOOD SPECIMENOrdering Facility: [facility] Address: [address] [place] [address] Performed By: #### I PFR, 46608-7, 73346-8 ####[facility] LABCLIA [id number] [place] [id number] [place] Eosinophils (Bld) [#/Vol] 0.35 10*3/uL Normal <0.46 [facility] Comment on above: Order Comment: Speci men Type: BLOOD SPECIMENOrdering Facility: [facility] Address: [address] [place] [address] Performed By: #### I PFR, 30660-2, 54466-1 ####[facility] LABCLIA [id number] [place] [id number] [place] Eosinophils/100 WBC (Bld) 3.4 % Normal [facility] Comment on above: Order Comment: Speci men Type: BLOOD SPECIMENOrdering Facility: [facility] Address: [address] [place] [address] Performed By: #### I PFR, 11391-7, 96953-8 ####[facility] LABIA [id number] [place] [address] [place] Erythrocyte distribution width (RBC) [Ratio] 17.4 % High 11.5-15.0 [facility] Comment on above: Order Comment: Speci men Type: BLOOD SPECIMENOrdering Facility: [facility] Address: [address] [place] [address] Performed By: #### I PFR, 64170-4, 77097-2 ####[facility] LABIA [id number] [place] [address] [place] Hematocrit (Bld) [Volume fraction] 24.6 % Low 39.0-51.0 [facility] Comment on above: Order Comment: Speci men Type: BLOOD SPECIMENOrdering Facility: [facility] Address: [address] [place] [address] Performed By: #### I PFR, 95597-4, 80473-1 ####[facility] LABIA [id number] [place] [id number] [place] Hemoglobin (Bld) [Mass/Vol] 8.4 g/dL Low 13.0-17.0 [facility] Comment on above: Order Comment: Speci men Type: BLOOD SPECIMENOrdering Facility: [facility] Address: [address] [place] [address] Performed By: #### I PFR, 16461-9, 43534-4 ####[facility] LABCLIA [id number] [place] [address] [place] Immature granulocytes (Bld) [#/Vol] 0.08 10*3/uL Normal <0.10 [facility] Comment on above: Order Comment: Speci men Type: BLOOD SPECIMENOrdering Facility: [facility] Address: [address] [place] [address] Performed By: #### I PFR, 55374-1, 29536-2 ####[facility] LABCLIA [id number] [place] [address] [place] Immature granulocytes/100 WBC (Bld) 0.8 % Normal [facility] Comment on above: Order Comment: Speci men Type: BLOOD SPECIMENOrdering Facility: [facility] Address: [address] [place] [address] Performed By: #### I PFR, 33238-0, 28338-7 ####[facility] LABCLIA [id number] [place] [address] [place] Lymphocytes (Bld) [#/Vol] 0.99 10*3/uL Low 1.00-4.00 [facility] Comment on above: Order Comment: Speci men Type: BLOOD SPECIMENOrdering Facility: [facility] Address: [address] [place] [address] Performed By: #### I PFR, 19937-7, 69659-7 ####[facility] LABCLIA [id number] [place] [address] [place] Lymphocytes/100 WBC (Bld) 9.5 % Normal [facility] Comment on above: Order Comment: Speci men Type: BLOOD SPECIMENOrdering Facility: [facility] Address: [address] [place] [address] Performed By: #### I PFR, 68875-4, 08711-7 ####[facility] LABCLIA [id number] [place] [id number] [place] MCH (RBC) [Entitic mass] 31.9 pg Normal 26.0-34.0 [facility] Comment on above: Order Comment: Speci men Type: BLOOD SPECIMENOrdering Facility: [facility] Address: [address] [place] [address] Performed By: #### I PFR, 57459-1, 38143-7 ####[facility] LABCLIA [id number] [place] [address] [place] MCHC (RBC) [Mass/Vol] 34.1 g/dL Normal 30.5-36.0 [facility] Comment on above: Order Comment: Speci men Type: BLOOD SPECIMENOrdering Facility: [facility] Address: [address] [place] [address] Performed By: #### I PFR, 33253-1, 38906-4 ####[facility] LABCLIA [id number] [place] [address] [place] MCV (RBC) [Entitic vol] 93.5 fL Normal 80.0-100.0 C [facility] Comment on above: Order Comment: Speci men Type: BLOOD SPECIMENOrdering Facility: [facility] Address: [address] [place] [address] Performed By: #### I PFR, 58437-4, 06945-1 ####[facility] LABCLIA [id number] [place] [address] [place] Monocytes (Bld) [#/Vol] 0.97 10*3/uL High <0.87 [facility] Comment on above: Order Comment: Speci men Type: BLOOD SPECIMENOrdering Facility: [facility] Address: [address] [place] [address] Performed By: #### I PFR, 24641-0, 41402-8 ####[facility] LABCLIA [id number] [address] [address] [place] Monocytes/100 WBC (Bld) 9.3 % Normal C [facility] Comment on above: Order Comment: Speci men Type: BLOOD SPECIMENOrdering Facility: [facility] Address: [address] [place] [address] Performed By: #### I PFR, 03085-1, 25770-2 ####[facility] LABCLIA [id number] [facility] [place] [address] [place] Neutrophils (Bld) [#/Vol] 8.00 10*3/uL High 1.45-7.50 [facility] Comment on above: Order Comment: Speci men Type: BLOOD SPECIMENOrdering Facility: [facility] Address: [address] [place] [address] Performed By: #### I PFR, 15005-5, ####[facility] LABCLIA [id number] [place] [address] [place] Neutrophils/100 WBC (Bld) 76.6 % Normal [facility] Comment on above: Order Comment: Speci men Type: BLOOD SPECIMENOrdering Facility: [facility] Address: [address] [place] [address] Performed By: #### I PFR, 42239-3, ####[facility] [facility] LABCLIA [id number] [place] [address] [place] Nucleated RBC (Bld) [#/Vol] 10*3/uL Normal <0.01 [facility] Comment on above: Order Comment: Speci men Type: BLOOD SPECIMENOrdering Facility: [facility] Address: [address] [place] [address] Performed By: #### I PFR, 64090-4, 93114-9 ####[facility] LABCLIA [id number] [place] [id number] [place] Nucleated RBC/100 WBC (Bld) [Ratio] 0.0 /100 WBC Normal [facility] Comment on above: Order Comment: Speci men Type: BLOOD SPECIMENOrdering Facility: [facility] Address: [address] [place], [place] [address] Performed By: #### I PFR, 09851-3, 13533-3 ####[facility] LABCLIA [id number] [place] [id number] [place] Platelet mean volume (Bld) [Entitic vol] 11.5 fL Normal 9.0-12.7 [facility] Comment on above: Order Comment: Speci men Type: BLOOD SPECIMENOrdering Facility: [facility] Address: [address] [place] [address] Performed By: #### I PFR, 68124-4, 01837-4 ####[facility] LABCLIA [id number] [place] [address] [place] Platelets (Bld) [#/Vol] 43 10*3/uL Low 150-400 C [facility] Comment on above: Order Comment: Speci men Type: BLOOD SPECIMENOrdering Facility: [facility] Address: [address] [place] [address] Performed By: #### I PFR, 77793-9, 11120-0 ####[facility] LABCLIA [id number] [place] [address] [place] RBC (Bld) [#/Vol] 2.63 10*6/uL Low 4.20-6.00 [facility] Comment on above: Order Comment: Speci men Type: BLOOD SPECIMENOrdering Facility: [facility] Address: [address] [place], [place] [address] Performed By: #### I PFR, 48673-9, 93563-7 ####[facility] LABCLIA [id number] [place] [address] [place] WBC (Bld) [#/Vol] 10.43 10*3/uL Normal 3.70-11.00 [facility] Comment on above: Order Comment: Speci men Type: BLOOD SPECIMENOrdering Facility: [facility] Address: [address] [place] [address] Performed By: #### I PFR, 75696-7, 44964-4 ####[facility] LABCLIA [id number] [place] [address] [place] Basophils (Bld) [#/Vol] 0.06 10*3/uL Normal <0.11 [facility] Comment on above: Order Comment: Speci men Type: BLOOD SPECIMENOrdering Facility: [facility] Address: [address] [place] [address] Performed By: #### 5 5454-3, 33061-7 ####[facility] LABCLIA [id number] [place] [address] [place] Basophils/100 WBC (Bld) 0.4 % Normal [facility] Comment on above: Order Comment: Speci men Type: BLOOD SPECIMENOrdering Facility: [facility] Address: [address] [place] [address] Performed By: #### 5 5454-3, 53094-0 ####[facility] LABIA [id number] [place] [address] [place] Differential cell count method Nom (Bld) Auto Normal [facility] Comment on above: Order Comment: Speci men Type: BLOOD SPECIMENOrdering Facility: [facility] Address: [address] [place] [address] Performed By: #### 5 5454-3, 13979-8 ####[facility] LABIA [id number] [place] [id number] [place] Eosinophils (Bld) [#/Vol] 0.40 10*3/uL Normal <0.46 [facility] Comment on above: Order Comment: Speci men Type: BLOOD SPECIMENOrdering Facility: [facility] Address: [address] [place] [address] Performed By: #### 5 5454-3, 18075-1 ####[facility] LABCLIA [id number] [address] [place] [address] [place] Eosinophils/100 WBC (Bld) 2.5 % Normal [facility] Comment on above: Order Comment: Speci men Type: BLOOD SPECIMENOrdering Facility: [facility] Address: [address] [place] [address] Performed By: #### 5 5454-3, 52089-5 ####[facility] LABCLIA [id number] [address], [facility]95 [place] Erythrocyte distribution width (RBC) [Ratio] 18.0 % High 11.5-15.0 [facility] Comment on above: Order Comment: Speci men Type: BLOOD SPECIMENOrdering Facility: [facility] Address: [address] [place] [address] Performed By: #### 5 5454-3, 27365-3 ####[facility] LABIA [id number] [address], [place] [address] [place] Hematocrit (Bld) [Volume fraction] 30.4 % Low 39.0-51.0 [facility] Comment on above: Order Comment: Speci men Type: BLOOD SPECIMENOrdering Facility: [facility] Address: [address] [place] [address] Performed By: #### 5 5454-3, 17499-2 ####[facility] LABCLIA [id number] [place] [id number] [place] Hemoglobin (Bld) [Mass/Vol] 10.2 g/dL Low 13.0-17.0 [facility] Comment on above: Order Comment: Speci men Type: BLOOD SPECIMENOrdering Facility: [facility] Address: [address] [place] [address] Performed By: #### 5 5454-3, 67603-1 ####[facility] LABCLIA [id number] [address], [facility] [place] Immature granulocytes (Bld) [#/Vol] 0.18 10*3/uL High <0.10 [facility] Comment on above: Order Comment: Speci men Type: BLOOD SPECIMENOrdering Facility: [facility] Address: [address] [place] [address] Performed By: #### 5 5454-3, 98359-9 ####[facility] LABCLIA [id number] [place] [address] [place] Immature granulocytes/100 WBC (Bld) 1.1 % Normal [facility] Comment on above: Order Comment: Speci men Type: BLOOD SPECIMENOrdering Facility: [facility] Address: [address] [place] [address] Performed By: #### 5 5454-3, 40840-6 ####[facility] LABCLIA [id number] [place] [address] [place] Lymphocytes (Bld) [#/Vol] 1.19 10*3/uL Normal 1.00-4.00 [facility] Comment on above: Order Comment: Speci men Type: BLOOD SPECIMENOrdering Facility: [facility] Address: [address] [place] [address] Performed By: #### 5 5454-3, 40125-6 ####[facility] LABCLIA [id number] [place] [address] [place] Lymphocytes/100 WBC (Bld) 7.6 % Normal [facility] Comment on above: Order Comment: Speci men Type: BLOOD SPECIMENOrdering Facility: [facility] Address: [address] [place] [address] Performed By: #### 5 5454-3, 72911-9 ####[facility] LABCLIA [id number] [place] [id number] [place] MCH (RBC) [Entitic mass] 31.3 pg Normal 26.0-34.0 [facility] Comment on above: Order Comment: Speci men Type: BLOOD SPECIMENOrdering Facility: [facility] Address: [address] [place] [address] Performed By: #### 5 5454-3, 39454-7 ####[facility] LABCLIA [id number] [place] [address] [place] MCHC (RBC) [Mass/Vol] 33.6 g/dL Normal 30.5-36.0 [facility] Comment on above: Order Comment: Speci men Type: BLOOD SPECIMENOrdering Facility: [facility] Address: [address] [place] [address] Performed By: #### 5 5454-3, 35256-8 ####[facility] LABCLIA [id number] [place] [address] [place] MCV (RBC) [Entitic vol] 93.3 fL Normal 80.0-100.0 C [facility] Comment on above: Order Comment: Speci men Type: BLOOD SPECIMENOrdering Facility: [facility] Address: [address] [place] [address] Performed By: #### 5 5454-3, 36234-5 ####[facility] LABIA [id number] [place] [address] [place] Monocytes (Bld) [#/Vol] 1.36 10*3/uL High <0.87 [facility] Comment on above: Order Comment: Speci men Type: BLOOD SPECIMENOrdering Facility: [facility] Address: [address] [place] [address] Performed By: #### 5 5454-3, 03390-2 ####[facility] LABIA [id number] [address] [place] Monocytes/100 WBC (Bld) 8.6 % Normal C [facility] Comment on above: Order Comment: Speci men Type: BLOOD SPECIMENOrdering Facility: [facility] Address: [address] [place] [address] Performed By: #### 5 5454-3, 18158-8 ####[facility] LABCLIA [id number] [place] [address] [place] Neutrophils (Bld) [#/Vol] 12.55 10*3/uL High 1.45-7.50 [facility] Comment on above: Order Comment: Speci men Type: BLOOD SPECIMENOrdering Facility: [facility] Address: [address] [place] [address] Performed By: #### 5 5454-3, 89077-2 ####[facility] LABCLIA [id number] [place] [address] [place] Neutrophils/100 WBC (Bld) 79.8 % Normal [facility] Comment on above: Order Comment: Speci men Type: BLOOD SPECIMENOrdering Facility: [facility] Address: [address] [place] [address] Performed By: #### 5 5454-3, 05939-8 ####[facility] LABCLIA [id number] [place] [address] [place] Nucleated RBC (Bld) [#/Vol] 10*3/uL Normal <0.01 [facility] Comment on above: Order Comment: Speci men Type: BLOOD SPECIMENOrdering Facility: [facility] Address: [address] [place] [address] Performed By: #### 5 5454-3, 54410-1 ####[facility] LABCLIA [id number] [place] [id number] [place] Nucleated RBC/100 WBC (Bld) [Ratio] 0.0 /100 WBC Normal [facility] Comment on above: Order Comment: Speci men Type: BLOOD SPECIMENOrdering Facility: [facility] Address: [address] [place] [address] Performed By: #### 5 5454-3, 31130-9 ####[facility] LABCLIA [id number] [place] [id number] [place] Platelet mean volume (Bld) [Entitic vol] 12.1 fL Normal 9.0-12.7 [facility] Comment on above: Order Comment: Speci men Type: BLOOD SPECIMENOrdering Facility: [facility] Address: [address] [place] [address] Performed By: #### 5 5454-3, 62490-0 ####[facility] LABCLIA [id number] [place] [address] [place] Platelets (Bld) [#/Vol] 52 10*3/uL Low 150-400 C [facility] Comment on above: Order Comment: Speci men Type: BLOOD SPECIMENOrdering Facility: [facility] Address: [address] [place] [address] Result Comment: Resu lts checked and verified.No clot detected. Performed By: #### 5 5454-3, 82848-7 ####[facility] LABIA [id number] [place] [address] [place] RBC (Bld) [#/Vol] 3.26 10*6/uL Low 4.20-6.00 [facility] Comment on above: Order Comment: Speci men Type: BLOOD SPECIMENOrdering Facility: [facility] Address: [address] [place] [address] Performed By: #### 5 5454-3, 10911-9 ####[facility] LABIA [id number] [place] [id number] [place] WBC (Bld) [#/Vol] 15.74 10*3/uL High 3.70-11.00 [facility] Comment on above: Order Comment: Speci men Type: BLOOD SPECIMENOrdering Facility: [facility] Address: [address] [place] [address] Performed By: #### 5 5454-3, 92785-3 ####[facility] LABCLIA [id number] [address] [place] CEA SerPl-mCncon 11-11-2024 Carcinoembryonic Ag [Mass/Vol] 13.0 ng/mL High <=2.9 [facility] Comment on above: Order Comment: Speci men Type: BLOOD SPECIMENOrdering Facility: [facility] Address: [address] [place] [address] Result Comment: Carc inoembryonic antigen test is used as an aid in monitoring response to treatment or recurrence in patients with established colorectal, breast, lung, prostatic, pancreatic, and ovarian carcinomas. Clinical correlation is required.The Carcinoembryonic antigen test was performed using the Mirubeeel DXI paramagnetic particle chemiluminescent immunoassay method. Results obtained with different assay methods or kits cannot be used interchangeably. Performed By: #### 2 039-6, 03391-2, 2532-0 ####[facility], INCIA [id number] [place] [address] [place] COAG CORE PANEL BLDon 2024 aPTT Coag (PPP) [Time] 41.3 s High 23.0-32.4 [facility] Comment on above: Order Comment: Speci men Type: BLOOD SPECIMENOrdering Facility: [facility] Address: [address] [place] [address] Performed By: #### C ORPNL ####[facility] INCIA [id number] [place] [address] [place] Fibrinogen Coag (PPP) [Mass/Vol] 88 mg/dL Low 200-400 [facility] Comment on above: Order Comment: Speci men Type: BLOOD SPECIMENOrdering Facility: [facility] Address: [address] [place] [address] Result Comment: Samp le checked for clot.Result rechecked. Performed By: #### C ORPNL ####[facility] LABIA [id number] [place] [address] [place] INR Coag (PPP) [Relative time] 2.1 {INR} High 0.9-1.3 [facility] Comment on above: Order Comment: Ezekeil ramirez Type: BLOOD SPECIMENOrdering Facility: [facility] Address: [address] [place] [address] Result Comment: Sarah min K Antagonist (VKA) Therapeutic Range: INR 2 to 3 (Target INR of 2.5)Note: For patients treated with VKA drugs, such as warfarin, the [employer] [employer] 2012 Guideline recommends [...] al. Chest 2012, 141:7S-47SNishimnicolle RA, et al. [facility] 2017, 70: 252-289 Performed By: #### C ORPNL ####[facility] LABIA [id number] [place] [address] [place] PT Coag (PPP) [Time] 21.8 s High 9.7-13.0 [facility] Comment on above: Order Comment: Ezekiel ramirez Type: BLOOD SPECIMENOrdering Facility: [facility] Address: [address] [place] [address] Performed By: #### C ORPNL ####[facility] LABIA [id number] [place] [address] [place] CONSULTon 11-11-2024 CONSULT Normal [facility] CONSULT Normal [facility] CRP SerPl-mCncon 11-11-2024 CRP [Mass/Vol] 0.5 mg/dL Normal <0.9 [facility] Comment on above: Order Comment: Speci men Type: BLOOD SPECIMENOrdering Facility: [facility] Address: [address] [place] [address] Performed By: #### D ASHLEY, 1986-12 ####[facility] LABCLIA [id number] [place] [address] [place] CYTOLOGY NON-GYNon 5 AP DISCLAIMER Normal [facility] Comment on above: Order Comment: Speci men Type: FLUID SPECIMENOrdering Facility: [facility] Address: [address] [place] [address] Result Comment: Shellie pugh Developed Test (LDT) Disclaimer:Performance characteristics of immunohistochemical, immunofluorescent, and chromogenic in-situ hybridization tests have been determined by the performing laboratory within [facility] Pathology and Laboratory Medicine Department ([facility], [facility], [facility], [facility], [facility], [facility], or [facility]) in a manner consistent with CLIA requirements. One or more of these tests may not have been cleared or approved by the FDA. RT-PLM is regulated under CLIA as qualified to perform high-complexity testing. These tests are used for clinical purposes. These should not be regarded as investigational or for research. Positive and negative controls stain appropriately. Performed By: #### C NETO ####[facility] LABCLIA [id number] [place] [address] [place] CASE REPORT Normal [facility] Comment on above: Order Comment: Speci men Type: FLUID SPECIMENOrdering Facility: [facility] Address: [address] [place] [address] Result Comment: [facility] Cytology Report Case: [id number] Provider: Yaritza Juarez, Collected: 11/11/2024 05:14 PM NETWORK DEVELOPER.CNPOrdering Location: [place] [address] Received: 11/11/2024 08:30 PMPathologist: Sameer Fournier MDSpecimen: Abdomen Performed By: #### C YTONON ####[facility] LABCLIA [id number] [place] [address] [place] CLINICAL HISTORY paracentesis fluid Normal [facility] Comment on above: Order Comment: Speci men Type: FLUID SPECIMENOrdering Facility: [facility] Address: [address] [place] [address] Performed By: #### C YTONON ####[facility] LABCLIA [id number] [place] [address] [place] FINAL DIAGNOSIS Normal [facility] Comment on above: Order Comment: Speci men Type: FLUID SPECIMENOrdering Facility: [facility] Address: [address] [place] [address] Result Comment: A - Abdomen, Fluid Negative for malignant cells.The following cell blocks were associated with this case:A1\X09\Cell Block, Alcohol Fixed\X09\ at 1034 EDT Performed By: #### C YTONON ####[facility] LABCLIA [id number] [address] [place] FINAL PERFORMING LAB Normal [facility] Comment on above: Order Comment: Speci men Type: FLUID SPECIMENOrdering Facility: [facility] Address: [address] [place] [address] Result Comment: Tech nical component, dark room attendant screening performed at: [facility], [address] [place] [address] CLIA: [id number] interpretation performed at: [facility], [address] [place], [place] [address] CLIA# [id number] Director: Titi Voss MD Performed By: #### C YTONON ####[facility] LABCLIA [id number] [place] [address] [place] GROSS DESCRIPTION A. Abdomen Normal [facility] Comment on above: Order Comment: Speci men Type: FLUID SPECIMENOrdering Facility: [facility] Address: [address] [place] [address] Result Comment: 1450 cc opaque lexis fluid . ThinPrep and Cell Block prepared. Performed By: #### C YTVIRI ####[facility] LABCLIA [id number] [address] [place] Cancer Ag19-9 SerPl-aCncon 0 11-11-2024 Cancer Ag 19-9 Qn <2.0 Normal <36.0 [facility] Comment on above: Order Comment: Speci men Type: BLOOD SPECIMENOrdering Facility: [facility] Address: [address] [place] [address] Result Comment: [facility] er antigen 19-9 test is used as an aid in monitoring response to treatment or recurrence in patients with established pancreatic, hepatobiliary, or gastrointestinal malignancies. Clinical correlation is required.The CA 19-9 Antigen test was performed using the Mirubeeel DXI paramagnetic particle chemiluminescent immunoassay method. Results obtained with different assay methods or kits cannot be used interchangeably. Performed By: #### 2 039-6, 01764-1, 2532-0 ####[facility] [id number] [address] [place] Cardiolipin IgA Ser IA-aCnco n 11-11-2024 Cardiolipin IgA IA Qn (S) 9.7 [APL'U] Normal <12.0 [facility] Comment on above: Order Comment: Speci men Type: BLOOD SPECIMENOrdering Facility: [facility] Address: [address] [place] [address] Result Comment: <12 APL [id number] APL Indeterminate>20 APL PositiveThe following results were obtained with the [employer] QUANTA Lite TEZ IgA III ANDERS. Cardiolipin IgA values obtained with the different manufacturers' assay methods may not be used interchangeably. The magnitude of the reported IgA levels cannot be correlated to an endpoint titer. Performed By: #### 5 076-5, MELVIN ARMENTA ####[facility] LABIA [id number] [place] [address] [place] DIRECT BILIRUBIN BLOODon Bilirubin.conjugated [Mass/Vol] 1.1 mg/dL High <0.3 [facility] Comment on above: Order Comment: Speci men Type: BLOOD SPECIMENOrdering Facility: [facility] Address: [address] [place] [address] Performed By: #### D ASHLEY, 1986-12 ####[facility] LABCLIA [id number] [place] [address] [place] ECG COMPLETEon 11-11-2024 ECG COMPLETE Normal [facility] [id number] 11-11-2024 ECG01 Normal [facility] Ferritin SerPl-ncon 2024 Ferritin [Mass/Vol] 82.4 ng/mL Normal 30.3-565.7 [facility] Comment on above: Order Comment: Speci men Type: BLOOD SPECIMENOrdering Facility: [facility] Address: [address] [place] [address] Performed By: #### 2 276-4, 39705-9, 08526-6, 30068-4, 2777-1, 85722-8 ####[facility] LABCLIA [id number] [place] [address] [place] Fibrinogen PPP-mCncon 2024 Fibrinogen Coag (PPP) [Mass/Vol] 90 mg/dL Low 200-400 [facility] Comment on above: Order Comment: Speci men Type: BLOOD SPECIMENOrdering Facility: [facility] Address: [address] [place] [address] Result Comment: [facility] le checked for clot.Result rechecked. Performed By: #### 3 255-7, 06644-4 ####[facility] LABCLIA [id number] [place] [address] [place] HISTORY PHYSICALon HISTORY PHYSICAL Normal [facility] HYPERCOAG PANELon 11-11-2024 Activated protein C resistance Coag (PPP) [Time ratio] 2.10 Ratio Normal >1.96 [facility] Comment on above: Order Comment: Speci men Type: BLOOD SPECIMENOrdering Facility: [facility] Address: [address] [place] [address] Performed By: #### L [id number], HCOAG, 6303-2, 60601-8, 19917-4 ####[facility] LABCLIA [id number] [place] [address] [place] Antithrombin actual/normal Chromogenic method (PPP) [Rel catalytic activity/Vol] 30 % Low 84-138 [facility] Comment on above: Order Comment: Speci men Type: BLOOD SPECIMENOrdering Facility: [facility] Address: [address] [place] [address] Performed By: #### L [id number], HCOAG, 6303-2, 90046-6, 20055-8 ####[facility] LABCLIA [id number] [place] [address] [place] aPTT Coag (Bld) [Time] 47.9 s High 24.0-35.1 [facility] Comment on above: Order Comment: Speci men Type: BLOOD SPECIMENOrdering Facility: [facility] Address: [address] [place] [address] Performed By: #### L [id number], HCOAG, 6303-2, 92046-4, 29786-5 ####[facility] LABCLIA [id number] [place] [address] [place] aPTT W excess hexagonal phase phospholipid Coag (PPP) [Time] 36.5 seconds Normal 34.0-51.8 [facility] Comment on above: Order Comment: Speci men Type: BLOOD SPECIMENOrdering Facility: [facility] Address: [address] [place] [address] Performed By: #### L [id number], HCOAG, 6303-2, 98294-3, 19573-4 ####[facility] LABCLIA [id number] [place] [address] [place] aPTT-LA w 1:1 PNP Coag (PPP) [Time] 32.5 seconds Normal <33.2 [facility] Comment on above: Order Comment: Ezekiel ramirez Type: BLOOD SPECIMENOrdering Facility: [facility] Address: [address] [place] [address] Result Comment: This test was developed, and its performance characteristics determined by the [facility] Department of Pathology and Laboratory Medicine. It has not been cleared or approved by the FDA. The [facility] Department of Pathology and Laboratory Medicine is regulated under CLIA as qualified to perform high-complexity testing. This test is used for clinical purposes. It should not be regarded as investigational or for research. Performed By: #### L [id number], HCOAG, 6303-2, 08673-2, 59650-7 ####[facility] [id number] [place] [address] [place] Coagulation factor VIII activity actual/normal Coag (PPP) [Relative time] 332 % High 50-173 [facility] Comment on above: Order Comment: Ezekiel ramirez Type: BLOOD SPECIMENOrdering Facility: [facility] Address: [address] [place] [address] Performed By: #### L [id number], HCOAG, 6303-2, 84751-0, 05073-2 ####[facility] [id number] [place] [address] [place] Coagulation factor X activated act Coag Qn (PPP) <0.10 Normal <0.10 [facility] Comment on above: Order Comment: Ezekiel ramirez Type: BLOOD SPECIMENOrdering Facility: [facility] Address: [address] [place] [address] Result Comment: This test was developed, and its performance characteristics determined by the [facility] Department of Pathology and Laboratory Medicine. It has not been cleared or approved by the FDA. The [facility] Department of Pathology and Laboratory Medicine is regulated under CLIA as qualified to perform high-complexity testing. This test is used for clinical purposes. It should not be regarded as investigational or for research. Performed By: #### L [id number], HCOAG, 6303-2, 57135-1, 90603-8 ####[facility] LABCLIA [id number] [address] [address] [place] Delta dRVVT Coag (PPP) [Time diff] 2.2 delta seconds Normal <7.1 [facility] Comment on above: Order Comment: Speci men Type: BLOOD SPECIMENOrdering Facility: [facility] Address: [address] [place] [address] Performed By: #### L [id number], HCOAG, 6303-2, 85592-3, 64608-1 ####[facility] LABCLIA [id number] [place] [address] [place] dRVVT W excess hexagonal phase phospholipid actual/normal Coag (PPP) [Relative time] 34.3 seconds Normal 34.2-47.9 [facility] Comment on above: Order Comment: Speci men Type: BLOOD SPECIMENOrdering Facility: [facility] Address: [address] [place] [address] Performed By: #### L [id number], HCOAG, 6303-2, 14808-5, 48672-8 ####[facility] LABIA [id number] [place] [address] [place] Protein C actual/normal Coag (PPP) [Relative time] 24 % Low 76-147 [facility] Comment on above: Order Comment: Speci men Type: BLOOD SPECIMENOrdering Facility: [facility] Address: [address] [place] [address] Performed By: #### L [id number], HCOAG, 6303-2, 32922-5, 42245-4 ####[facility] LABCLIA [id number] [place] [address] [place] Protein S actual/normal Coag (PPP) [Relative time] 28 % Low 59-152 [facility] Comment on above: Order Comment: Speci men Type: BLOOD SPECIMENOrdering Facility: [facility] Address: [address] [place] [address] Performed By: #### L [id number], HCOAG, 6303-2, 08362-5, 82000-8 ####[facility] LABIA [id number] [place] [address] [place] Protein S Free Ag actual/normal IA (PPP) [Relative mass conc] 45 % Low 55-148 [facility] Comment on above: Order Comment: Speci men Type: BLOOD SPECIMENOrdering Facility: [facility] Address: [address] [place] [address] Performed By: #### L [id number], HCOAG, 6303-2, 98060-9, 33136-2 ####[facility] LABIA [id number] [place] [address] [place] Thrombin time Coag (PPP) [Time] 20.0 seconds High <18.6 [facility] Comment on above: Order Comment: Speci men Type: BLOOD SPECIMENOrdering Facility: [facility] Address: [address] [place] [address] Performed By: #### L [id number], HCOAG, 6303-2, 17551-0, 78457-9 ####[facility] LABIA [id number] [place] [address] [place] HYPERCOAG PANEL INTERPon INTERPRETATION (HYPERCOAG) Normal [facility] Comment on above: Order Comment: Speci men Type: BLOOD SPECIMENOrdering Facility: [facility] Address: [address] [place] [address] Result Comment: Abno rmal - see comment [...] negative for the c.*97G>A variant (legacy name 18833L>A) in the 3' untranslated region of the [...] phase phospholipid neutralization. Performed By: #### L [id number], HCOAG, 6303-2, 06801-5, 71756-3 ####[facility] LABIA [id number] [place] [id number] [facility] Pathologist name Reviewed by Julia Howell M.D., Ph.D Normal [facility] Comment on above: Order Comment: Ezekiel ramirez Type: BLOOD SPECIMENOrdering Facility: [facility] Address: [address] [place] [address] Performed By: #### L [id number], HCOAG, 6303-2, 84122-4, 76260-5 ####[facility] INCIA [id number] [place] [id number] [place] Haptoglob SerPl-mCncon 11-11 Haptoglobin [Mass/Vol] 15 mg/dL Low 31-238 [facility] Comment on above: Order Comment: Ezekiel [facility] Type: BLOOD SPECIMENOrdering Facility: [facility] Address: [address] [place] [address] Performed By: #### 2 4362-6, 4542-7 ####[facility] [id number] [place] [id number] [place] HbA1c (Bld)on 11-11-2024 Average glucose Estimated from glycated hemoglobin (Bld) [Mass/Vol] 154 mg/dL Normal [facility] Comment on above: Order Comment: Ezekiel [facility] Type: BLOOD SPECIMENOrdering Facility: [facility] Address: [address] [place] [address] [place] [address] Result Comment: eAG: (Estimated average glucose) is a calculated value from HgbA1c and is insurance healthcare representative of the average blood glucose level in the last 2-3 month period. Performed By: #### 5 5454-3, 52708-4 ####[facility] LABCLIA [id number] [address] [address] [place] HbA1c (Bld) [Mass fraction] 7.0 % High 4.3-5.6 [facility] Comment on above: Order Comment: Speci men Type: BLOOD SPECIMENOrdering Facility: [facility] Address: [address] [place] [address] Result Comment: Amer [place] Diabetes Association guidelines indicate that patients with HgbA1c in the range 5.7-6.4% are at increased risk for development of diabetes, and intervention by lifestyle modification may be beneficial. HgbA1c greater or equal to 6.5% is considered diagnostic of diabetes. Performed By: #### 5 5454-3, 72926-8 ####[facility] LABCLIA [id number] [address] [address] [place] Hepatic function 2000 panelo n 11-11-2024 Albumin [Mass/Vol] 2.1 g/dL Low 3.9-4.9 [facility] Comment on above: Order Comment: Speci men Type: BLOOD SPECIMENOrdering Facility: [facility] Address: [address] [place] [address] Performed By: #### 2 276-4, 31708-6, 33018-6, 42608-7, 2777-1, 00922-4 ####[facility] LABCLIA [id number] [place] [id number] [place] ALP [Catalytic activity/Vol] 310 U/L High 38-113 [facility] Comment on above: Order Comment: Speci men Type: BLOOD SPECIMENOrdering Facility: [facility] Address: [address] [place] [address] Performed By: #### 2 276-4, 36006-6, 49482-9, 18285-2, 2777-1, 22644-0 ####[facility] LABCLIA [id number] [address] [address] [place] ALT [Catalytic activity/Vol] 31 U/L Normal 10-54 [facility] Comment on above: Order Comment: Speci men Type: BLOOD SPECIMENOrdering Facility: [facility] Address: [address] [place] [address] Performed By: #### 2 276-4, 28861-3, 16724-4, 19584-3, 2777-1, 63736-9 ####[facility] LABIA [id number] [place] [address] [place] AST [Catalytic activity/Vol] 44 U/L High 14-40 [facility] Comment on above: Order Comment: Speci men Type: BLOOD SPECIMENOrdering Facility: [facility] Address: [address] [place] [address] Performed By: #### 2 276-4, 48498-2, 86802-1, 01024-2, 2777-1, 91075-8 ####[facility] LABIA [id number] [place] [address] [place] Bilirubin [Mass/Vol] 1.6 mg/dL High 0.2-1.3 [facility] Comment on above: Order Comment: Speci men Type: BLOOD SPECIMENOrdering Facility: [facility] Address: [address] [place] [address] Performed By: #### 2 276-4, 32213-1, 22156-2, 92250-4, 7-1, 54037-3 ####[facility] LABIA [id number] [place] [id number] [place] Bilirubin.conjugated [Mass/Vol] 1.0 mg/dL High <0.3 [facility] Comment on above: Order Comment: Speci men Type: BLOOD SPECIMENOrdering Facility: [facility] Address: [address] [place] [address] Performed By: #### 2 276-4, 30589-7, 38292-8, 65124-0, 2776-1, 18236-6 ####[facility] LABCLIA [id number] [address] [place] [address] [place] Protein [Mass/Vol] 5.3 g/dL Low 6.3-8.0 [facility] Comment on above: Order Comment: Speci men Type: BLOOD SPECIMENOrdering Facility: [facility] Address: [address] [place] [address] Performed By: #### 2 276-4, 89395-8, 15792-1, 69223-6, 2776-1, ####[facility] LABIA [id number] [address], [place] [address] [place] IMMATURE PLATELET FRACTIONon 11-11-2024 Platelets reticulated/100 platelets Auto (Bld) 7.7 % High 0.9-7.2 [facility] Comment on above: Order Comment: Speci men Type: BLOOD SPECIMENOrdering Facility: [facility] Address: [address] [place] [address] Performed By: #### I PFR, 04492-7, 44618-3 ####[facility] LABCLIA [id number] [address], [facility]95 [place] Iron and Iron binding capaci ty panelon 11-11-2024 Iron [Mass/Vol] 34 ug/dL Low 41-186 [facility] Comment on above: Order Comment: Speci men Type: BLOOD SPECIMENOrdering Facility: [facility] Address: [address] [place] [address] Performed By: #### 2 276-4, 11801-9, 89845-6, 83422-0, 2776-1, 01239-5 ####[facility] LABCLIA [id number] [place] [id number] [place] Iron binding capacity [Mass/Vol] 180 ug/dL Low 232-386 [facility] Comment on above: Order Comment: Speci men Type: BLOOD SPECIMENOrdering Facility: [facility] Address: [address] [place] [address] Performed By: #### 2 276-4, 20653-2, 11902-2, 99850-5, 2777-1, 46142-9 ####[facility] LABIA [id number] [place] [address] [place] Iron/TIBC [Molar ratio] 18.9 % Normal 15.0-57.0 C [facility] Comment on above: Order Comment: Speci men Type: BLOOD SPECIMENOrdering Facility: [facility] Address: [address] [place] [address] Performed By: #### 2 276-4, 12000-8, 93385-7, 96212-7, 2777-1, 91752-1 ####[facility] LABIA [id number] [place] [address] [place] LDH SerPl-cCncon 11-11-2024 LDH [Catalytic activity/Vol] 321 U/L High 135-225 [facility] Comment on above: Order Comment: Speci men Type: BLOOD SPECIMENOrdering Facility: [facility] Address: [address] [place] [address] Performed By: #### 2 039-6, 40358-8, 2532-0 ####[facility] LABIA [id number] [place] [address] [place] Lipase Fld-cCncon 11-11-2024 Lipase (Body fld) [Catalytic activity/Vol] 29 U/L Normal See Comment [facility] Comment on above: Order Comment: Speci men Type: FLUID SPECIMENOrdering Facility: [facility] Address: [address] [place] [address] Result Comment: Pleu ral fluids: Lipase measurement [...] document C49A. PAULETTE Diaz: Clinical Laboratory Standards [place]: 2007.2. David Guillory. A review of pancreatic cyst fluid analysis in the differential diagnosis of pancreatic cyst lesions. [employer] 2013:0:1-16. Performed By: #### 1 747-5, 1795-4, 48373-0, 2881-1 ####[facility] LABCLIA [id number] [place] [address] [place] Lupus anticoagulant neutrali zation platelet Coag Ql (PPP)on 11-11-2024 aPTT Coag (Bld) [Time] 56.8 s High 30.2-43.0 [facility] Comment on above: Order Comment: Ezekiel ramirez Type: BLOOD SPECIMENOrdering Facility: [facility] Address: [address] [place] [address] Result Comment: This test was developed, and its performance characteristics determined by the [facility] Department of Pathology and Laboratory Medicine. It has not been cleared or approved by the FDA. The [facility] Department of Pathology and Laboratory Medicine is regulated under CLIA as qualified to perform high-complexity testing. This test is used for clinical purposes. It should not be regarded as investigational or for research. Performed By: #### L [id number], HCOAG, 6303-2, 92479-6, 09710-3 ####[facility] LABCLIA [id number] [address] [place] aPTT Coag (Bld) [Time] 36.5 s Normal 31.5-38.3 [facility] Comment on above: Order Comment: Speci men Type: BLOOD SPECIMENOrdering Facility: [facility] Address: [address] [place] [address] Result Comment: This test was developed, and its performance characteristics determined by the [facility] Department of Pathology and Laboratory Medicine. It has not been cleared or approved by the FDA. The [facility] Department of Pathology and Laboratory Medicine is regulated under CLIA as qualified to perform high-complexity testing. This test is used for clinical purposes. It should not be regarded as investigational or for research. Performed By: #### L [id number], HCOAG, 6303-2, 57986-3, 03627-3 ####[facility] LABCLIA [id number] [address] [place] [address] [place] PLATELET NEUT 0.0 Seconds Normal <1.9 [facility] Comment on above: Order Comment: Meggani james Type: BLOOD SPECIMENOrdering Facility: [facility] Address: [address] [place] [address] Result Comment: This test was developed, and its performance characteristics determined by the [facility] Department of Pathology and Laboratory Medicine. It has not been cleared or approved by the FDA. The [facility] Department of Pathology and Laboratory Medicine is regulated under CLIA as qualified to perform high-complexity testing. This test is used for clinical purposes. It should not be regarded as investigational or for research. Performed By: #### L [id number], HCOAG, 6303-2, 48920-3, 62878-3 ####[facility] LABCLIA [id number] [address] [address] [place] MANUAL DIFFERENTIAL, BODY FL UIDon 11-11-2024 DIF TTL, BODY FLUID 100 cells counted Normal [facility] Comment on above: Order Comment: Meggani james Type: FLUID SPECIMENOrdering Facility: [facility] Address: [address] [place] [address] Performed By: #### C CBF, [id number] ####[facility] LABCLIA [id number] [address] [place] [address] [place] LYMPH%, BF 37 % High 18-36 [facility] Comment on above: Order Comment: Speci men Type: FLUID SPECIMENOrdering Facility: [facility] Address: [address] [place] [address] Performed By: #### C CBF, [id number] ####[facility] LABCLIA [id number] [facility] [address] [place] [address] [place] MACRO%, BF 21 % Low 64-80 [facility] Comment on above: Order Comment: Speci men Type: FLUID SPECIMENOrdering Facility: [facility] Address: [address] [place] [address] Performed By: #### C CBF, [id number] ####[facility] LABCLIA [id number] [facility] [address], [place] [address] [place] MESO %, BF 12 % High 0-2 [facility] Comment on above: Order Comment: Speci men Type: FLUID SPECIMENOrdering Facility: [facility] Address: [address] [place] [address] Performed By: #### C CBF, [id number] ####[facility] LABCLIA [id number] [facility] [address], [facility]95 [place] NEUT%, BF 26 % High 0-1 [facility] Comment on above: Order Comment: Speci men Type: FLUID SPECIMENOrdering Facility: [facility] Address: [address] [place] [address] Performed By: #### C CBF, [id number] ####[facility] LABCLIA [id number] [facility] [address] [place] [address] [place] REAC LYMPH %, BF 4 % Normal [facility] Comment on above: Order Comment: Speci men Type: FLUID SPECIMENOrdering Facility: [facility] Address: [address] [place] [address] Performed By: #### C CBF, [id number] ####[facility] LABCLIA [id number] [facility] [address] [place] [address] [place] MEDICAL EMERon 11-11-2024 MEDICAL KRISTINA Normal [facility] MEDICAL KRISTINA Normal [facility] Magnesium SerPl-mCncon 11-11 Magnesium [Mass/Vol] 2.3 mg/dL Normal 1.7-2.3 [facility] [place] Comment on above: Order Comment: Speci men Type: BLOOD SPECIMENOrdering Facility: [facility] Address: [address] [place] [address] Performed By: #### 2 276-4, 39130-6, 72927-5, 51025-9, 2777-1, 30000-5 ####[facility] LABCLIA [id number] [address] [place] NURSING PROGon 11-11-2024 NURSING PROG Normal [facility] PLT DEP.AB, UNF. HEPARINon 0 11-11-2024 % REL HIGH DOSE HEP PORCINE 0 % Normal [facility] Comment on above: Order Comment: Speci men Type: BLOOD SPECIMENOrdering Facility: [facility] Address: [address] [place] [address] Performed By: #### S ERORE ####[facility] [id number] [place] [address] % REL LOW DOSE HEP PORCINE 0 % Normal [facility] Comment on above: Order Comment: Speci [facility] Type: BLOOD SPECIMENOrdering Facility: [facility] Address: [address] [place] [address] Performed By: #### S ERORE ####[facility]IESCL[facility] [id number] [place] [address] SEROTONIN REL INTERP See Note Normal [facility] [place] Comment on above: Order Comment: Speci [facility] Type: BLOOD SPECIMENOrdering Facility: [facility] Address: [address] [place] [address] Result Comment: This patient's specimen demonstrates a [...] Additionalinformation regarding diagnosis of HIT is available [employer]INTERPRETIVE INFORMATION: ABRAHAM, Unfractionated HeparinThis test was developed and its performance characteristicsdetermined by [employer]. It has not been cleared orapproved by the [place] Food and Drug Administration. This test wasperformed in a CLIA certified laboratory and is intended forclinical purposes.Performed By: [facility] [place], [place] [address]Mxprprbtvl Director: Lizandro Ordonez MD, PhDCLIA Number: [id number] Performed By: #### S ERORE ####[facility] [id number] [place] [address] ABRAHAM, UNFRACTIONATED HEPARIN Negative Normal Negative [facility] Comment on above: Order Comment: Speci men Type: BLOOD SPECIMENOrdering Facility: [facility] Address: [address] [place] [address] Performed By: #### S ERORE ####[facility] [id number] [place] [address] PROTHROMBIN GENE PCRon 11-11 PROTHROMBIN GENE MUTATION Normal [facility] Comment on above: Order Comment: Speci men Type: BLOOD SPECIMENOrdering Facility: [facility] Address: [address] [place] [address] Result Comment: Prot hrombin Gene MutationLaboratory Accession Number: [id number]:NORMALInterpretation:The DNA sample is negative for the c.*97G>A variant (legacy koia22223N>A) in the 3' untranslated region of the Factor II (F2) gene.This result is not associated with an increased risk of thromboembolicdisease. Thromboembolic disease is a multifactorial disorder and othercauses are not excluded by this result.Methodology:Isolated Genomic DNA from the patient's blood specimen is evaluatedfor the c*97G>A ([id number]) variant of the F2 gene [RefSeqNM_000506.53;GRCh38/hg38] by multiplex polymerase chain reaction (PCR)followed by melting curve analysis.Limitations:This assay is designed to detect the c.*97G>A (15791H>A) variant inthe F2 gene. Uncommon variants or single nucleotide polymorphisms mayaffect binding of probes and may rarely result in false negative,false positive or indeterminate results. This assay does not detectother disease-associated rare variants in F2 or other causes ofthromboembolic disease.Disclaimer:This test was developed and its performance characteristics determinedby [facility]'s [facility]. Ithas not been cleared or approved by the FDA. [facility] is regulated under CLIAas certified to perform high-complexity testing. This test is used forclinical purposes. It should not be regarded as investigational or forresearch.Test performed at [facility], [address] [place] [address], [place] [address]. CLIA Number: [id number]:1) Inheritied Thrombophilias in . ACOG Practice Bulletin. No.197. [place] [employer]. ObseteGynecol 2018;132:e18-34.2) Lindseyt SR, Kinsey FR, Relizbeth PH, and Bernice RIVERA. A commongenetic variation in the 3'-untranslated region of the prothrombingene is associated with elevated plasma prothrombin levels and anincrease in venous thrombosis. Blood 88:3698-703, 1995.3) Rica I, Justus V, Nayan C, Emily K. [id number]>T: 16 new cases, association with the 70707T>G polymorphism,and literature review. J Thromb Haemost. 2009;9:1585-7.Interpretation performed at remote location (R0A1) by Fifi España MD Performed By: #### P TGEN ####[facility] [id number] [address] [place] PT panel Coag (PPP)on 2024 INR Coag (PPP) [Relative time] 2.3 {INR} High 0.9-1.3 [facility] Comment on above: Order Comment: Speci men Type: BLOOD SPECIMENOrdering Facility: [facility] Address: [address] [place] [address] Result Comment: Sarah min K Antagonist (VKA) Therapeutic Range: INR 2 to 3 (Target INR of 2.5)Note: For patients treated with VKA drugs, such as warfarin, the [place] [employer] 2012 Guideline recommends [...] al. Chest 2012, 141:7S-47SNishbethel RA, et al. [facility] 2017, 70: 252-289 Performed By: #### P TTA, 45300-9 ####[facility] [id number] [place] [address] [place] PT Coag (PPP) [Time] 23.1 s High 9.7-13.0 [facility] Comment on above: Order Comment: Ezekiel ramirez Type: BLOOD SPECIMENOrdering Facility: [facility] Address: [address] [place] [address] Performed By: #### P TTA, 17903-2 ####[facility] [id number] [place] [address] [place] INR Coag (PPP) [Relative time] 2.1 {INR} High 0.9-1.3 [facility] Comment on above: Order Comment: Ezekiel ramirez Type: BLOOD SPECIMENOrdering Facility: [facility] Address: [address] [place] [address] Result Comment: Sarah min K Antagonist (VKA) Therapeutic Range: INR 2 to 3 (Target INR of 2.5)Note: For patients treated with VKA drugs, such as warfarin, the [place] [employer] 2012 Guideline recommends [...] al. Chest 2012, 141:7S-47SNishhairura RA, et al. [facility] 2017, 70: 252-289 Performed By: #### 3 4528-0 ####[facility] LABCLIA [id number] [place] [address] [place] PT Coag (PPP) [Time] 22.0 s High 9.7-13.0 [facility] Comment on above: Order Comment: Spechelder ramirez Type: BLOOD SPECIMENOrdering Facility: [facility] Address: [address] [place] [address] Performed By: #### 3 4528-0 ####[facility] LABCLIA [id number] [place] [address] [place] PTT, ANTICOAGULANT THERAPYon 11-11-2024 aPTT Coag (PPP) [Time] EXTREMELY ABNORMA L RESULT. No clot detected at 320 seconds. Refer to anticoagulation nomogram for further actions. Critically abnormal (none) [facility] Comment on above: Order Comment: Ezekiel ramirez Type: BLOOD SPECIMENOrdering Facility: [facility] Address: [address] [place] [address] Result Comment: Resu lt rechecked.Sample checked for clot. Performed By: #### P TTAC, 90373-7 ####[facility] LABCLIA [id number] [place] [address] [place] Phosphate SerPl-[facility] 11-11 Phosphate [Mass/Vol] 2.6 mg/dL Low 2.7-4.8 [facility] Comment on above: Order Comment: Speci men Type: BLOOD SPECIMENOrdering Facility: [facility] Address: [address] [place] [address] Performed By: #### 2 276-4, 30856-0, 80819-9, 99081-0, 2777-1, 80976-8 ####[facility] LABCLIA [id number] [place] [address] [place] Prot Fld-[facility] 11-11-2024 Protein (Body fld) [Mass/Vol] 0.2 g/dL Normal See Comment [facility] Comment on above: Order Comment: Speci men Type: FLUID SPECIMENOrdering Facility: [facility] Address: [address] [place] [address] Result Comment: Sero us fluids: Effusions are [...] document C49A. Joe PA: Clinical Laboratory Standards [place]: 2007. Performed By: #### 1 747-5, 1795-4, 08568-1, 2881-1 ####[facility] LABCLIA [id number] [place] [id number] [place] Renal function 2000 panelon 11-11-2024 Albumin [Mass/Vol] 2.4 g/dL Low 3.9-4.9 [facility] Comment on above: Order Comment: Speci men Type: BLOOD SPECIMENOrdering Facility: [facility] Address: [address] [place] [address] Performed By: #### 2 4362-6, 4541-7 ####[facility] LABCLIA [id number] [facility] [address] [place] [address] [place] Anion gap [Moles/Vol] 10 mmol/L Normal 8-15 [facility] Comment on above: Order Comment: Speci men Type: BLOOD SPECIMENOrdering Facility: [facility] Address: [address] [place] [address] Performed By: #### 2 4362-6, 7 ####[facility] LABCLIA [id number] [facility] [address] [place] [address] [place] Calcium [Mass/Vol] 9.3 mg/dL Normal 8.5-10.2 [facility] Comment on above: Order Comment: Speci men Type: BLOOD SPECIMENOrdering Facility: [facility] Address: [address] [place] [address] Performed By: #### 2 4362-6, 7 ####[facility] LABCLIA [id number] [facility] [address] [address] [place] Chloride [Moles/Vol] 100 mmol/L Normal 98-107 [facility] Comment on above: Order Comment: Speci men Type: BLOOD SPECIMENOrdering Facility: [facility] Address: [address] [place] [address] Performed By: #### 2 4362-6, 4541-7 ####[facility] LABCLIA [id number] [facility] [address] [place] [address] [place] CO2 [Moles/Vol] 13 mmol/L Low 22-30 [facility] Comment on above: Order Comment: Speci men Type: BLOOD SPECIMENOrdering Facility: [facility] Address: [address] [place] [address] Performed By: #### 2 4362-6, 454-7 ####[facility] LABIA [id number] [address] [address] [place] Creatinine [Mass/Vol] 1.26 mg/dL High 0.73-1.22 [facility] Comment on above: Order Comment: Speci james Type: BLOOD SPECIMENOrdering Facility: [facility] Address: [address] [place] [address] Performed By: #### 2 4362-6, 454-7 ####[facility] LABIA [id number] [place] [address] [place] Creatinine and Glomerular filtration rate.predicted panel (S/P/Bld) 66 mL/min/1.73m??? Normal >=60 [facility] Comment on above: Order Comment: [facility] Type: BLOOD SPECIMENOrdering Facility: [facility] Address: [address] [place] [address] Result Comment: Patric mated Glomerular Filtration Rate [...] actual GFR. Performed By: #### 2 4362-6, 454-7 ####[facility] LABIA [id number] [place] [id number] [place] Glucose [Mass/Vol] 255 mg/dL High 74-99 [facility] Comment on above: Order Comment: Ezekiel ramirez Type: BLOOD SPECIMENOrdering Facility: [facility] Address: [address] [place] [address] Result Comment: The [place] [employer] (ADA) provides guidance for cutoff [...] Standards of Medical Care in Diabetes 2016, [place] [employer]. Diabetes Care. 2016.39(Suppl 1). Performed By: #### 2 4362-6, 7 ####[facility] LABCLIA [id number] [address] [address] [place] Phosphate [Mass/Vol] 2.5 mg/dL Low 2.7-4.8 [facility] Comment on above: Order Comment: Speci men Type: BLOOD SPECIMENOrdering Facility: [facility] Address: [address] [place] [address] Performed By: #### 2 43609-09, 7 ####[facility] LABIA [id number] [address] [address] [place] Potassium [Moles/Vol] 4.4 mmol/L Normal 3.7-5.1 [facility] Comment on above: Order Comment: Speci men Type: BLOOD SPECIMENOrdering Facility: [facility] Address: [address] [place] [address] Performed By: #### 2 43609-09, 7 ####[facility] LABIA [id number] [address] [address] [place] Sodium [Moles/Vol] 123 mmol/L Low 136-144 [facility] Comment on above: Order Comment: Speci men Type: BLOOD SPECIMENOrdering Facility: [facility] Address: [address] [place] [address] Performed By: #### 2 436-6, 7 ####[facility] LABIA [id number] [address] [address] [place] Urea nitrogen [Mass/Vol] 21 mg/dL Normal 9-24 [facility] Comment on above: Order Comment: Speci men Type: BLOOD SPECIMENOrdering Facility: [facility] Address: [address] [place] [address] Performed By: #### 2 4362-6, 4542-7 ####[facility] LABCLIA [id number] [address], [place] [address] [place] Retics #on 11-11-2024 Reticulocytes (Bld) [#/Vol] 0.20663 10*3/uL High 0.018-0.100 [facility] Comment on above: Order Comment: Speci men Type: BLOOD SPECIMENOrdering Facility: [facility] Address: [address] [place] [address] Performed By: #### I PFR, 12566-2, 47101-8 ####[facility] LABCLIA [id number] [address], [place] [address] [place] [facility] Reticulocytes (Bld) [#/Vol]o n 11-11-2024 Reticulocytes/100 RBC (Bld) 4.1 % High 0.4-2.0 [facility] Comment on above: Order Comment: Speci men Type: BLOOD SPECIMENOrdering Facility: [facility] Address: [address] [place] [address] Performed By: #### I PFR, 50770-5, 11835-9 ####[facility] LABCLIA [id number] [address], [place] [address] [place] SEPSIS LACTATEon 11-11-2024 Lactate [Moles/Vol] 3.4 mmol/L High <=2.0 [facility] Comment on above: Order Comment: Speci men Type: BLOOD SPECIMENOrdering Facility: [facility] Address: [address] [place] [address] Performed By: #### S LACT ####[facility] LABCLIA [id number] [address] [place] Lactate [Moles/Vol] 3.6 mmol/L High <=2.0 [facility] Comment on above: Order Comment: Speci men Type: BLOOD SPECIMENOrdering Facility: [facility] Address: [address] [place] [address] Performed By: #### S LACT ####[facility] LABCLIA [id number] [place] [address] [place] Screen dRVVTon 11-11-2024 dRVVT Coag (PPP) [Time] 42.6 s Normal 32.0-45.7 C [facility] Comment on above: Order Comment: Speci men Type: BLOOD SPECIMENOrdering Facility: [facility] Address: [address] [place] [address] Performed By: #### L [id number], HCOAG, 6303-2, 75911-5, 98476-5 ####[facility] LABCLIA [id number] [place] [address] [place] US ABD LIVER VASCULARon 04- US ABD LIVER VASCULAR Normal [facility] US DOPPLER COMPLETEon 2024 US DOPPLER COMPLETE Normal [facility] XR ABDOMEN 1V SUPINEon 11-11 XR ABDOMEN 1V SUPINE Normal [facility] XR CHEST 1V FRONTAL PORTon 0 11-11-2024 XR CHEST 1V FRONTAL PORT Normal [facility] XR CHEST 1V FRONTAL PORT Normal [facility] aPTT PPPon 11-11-2024 aPTT Coag (PPP) [Time] 41.7 s High 23.0-32.4 [facility] Comment on above: Order Comment: Speci men Type: BLOOD SPECIMENOrdering Facility: [facility] Address: [address] [place] [address] Performed By: #### 3 255-7, 77429-4 ####[facility] LABCLIA [id number] [place] [address] [place] dRVVT Coag (PPP) [Time]on dRVVT factor substitution immediately after 1:2 addition of normal plasma Coag (PPP) [Time] 35.4 seconds Normal 32.0-45.7 [facility] Comment on above: Order Comment: Speci men Type: BLOOD SPECIMENOrdering Facility: [facility] Address: [address] [place] [address] Performed By: #### L [id number], HCOAG, 6303-2, 28663-9, 02182-2 ####[facility] LABIA [id number] [place] [address] [place] dRVVT/dRVVT.excess phospholipid Coag (PPP) [Ratio] 0.91 Normal <1.32 [facility] Comment on above: Order Comment: Speci men Type: BLOOD SPECIMENOrdering Facility: [facility] Address: [address] [place] [address] Performed By: #### L [id number], HCOAG, 6303-2, 79607-2, 15144-7 ####[facility] LABIA [id number] [place] [address] [place] ALP [Catalytic activity/Vol] Ordered By: Kathie Powers on 11-10-2024 Serum or plasma alkaline phosphatase measurement 310 U/L High 40-129 [facility] ALT [Catalytic activity/Vol] Ordered By: Kathie Powers on 11-10-2024 Serum or plasma alanine aminotransferase (ALT) measurement 36 U/L <47 [facility] Absolute lymphocyte countOrd ered By: Kathie Powers on 11-10-2024 Lymphocytes Auto (Unsp spec) [#/Vol] 1.30 10*3/uL 0.83-4.51 [facility] Absolute neutrophil countOrd ered By: Kathie Powers on 11-10-2024 Absolute neutrophil count 16.2 X10^3/uL High 2.0-7.7 [facility] Albumin [Mass/Vol]Ordered By : Kathie Powers on 11-10-2024 Serum or plasma albumin measurement (mass/volume) 2.3 g/dL Low 3.5-5.0 [facility] Albumin/Globulin [Mass ratio ]Ordered By: Kathie Powers on 11-10-2024 Serum or plasma albumin/globulin mass ratio 0.7 RATIO Low 0.9-2.4 [facility] Anion gap [Moles/Vol]Ordered By: Kathie Powers on 11-10-2024 Anion gap in Serum or Plasma 11 5-15 [facility] Anion gap in Serum or Plasma Ordered By: Kathie Powers on 11-10-2024 Anion gap [Moles/Vol] 11 mmol/L 5-15 [facility] Automated lymphocyte count a s percentage of total leukocytesOrdered By: Kathie Powers on 11-10-2024 Lymphocytes/100 WBC Auto (Unsp spec) 6.6 % Low 19-41 [facility] BUN/creatinine ratioOrdered By: Kathie Powers on 11-10-2024 Urea nitrogen/Creatinine [Mass ratio] 16.6 mg/mg 10-20 [facility] BUN/creatinine ratio 16.6 RATIO 10-20 [facility] Bacteria LM.HPF (Urine sed) [#/Area]Ordered By: Kathie Powers on 11-10-2024 Urine sediment bacteria count by microscopy (number/high power field) 2+ /hpf None Seen [facility] Basophil percentageOrdered B y: Kathie Powers on 11-10-2024 Basophils/100 WBC (Bld) 0.5 % 0-1 [facility] Basophil percentage 0.5 % 0-1 [facility] Bilirubin Test strip Ql (U)O rdered By: Kathie Powers on 11-10-2024 Bilirubin Ql (U) Negative Negative [facility] Urine total bilirubin detection by test strip Negative Negative [facility] Bilirubin, totalOrdered By: Kathie Powers on 11-10-2024 Bilirubin [Mass/Vol] 2.09 mg/dL High 0.00-1.30 [facility] Bilirubin, total 2.09 mg/dL High 0.00-1.30 [facility] Calcium [Mass/Vol]Ordered By : Kathie Powers on 11-10-2024 Serum or plasma calcium measurement (mass/volume) 9.2 mg/dL 7.6-11.0 [facility] Carbon dioxide, total [Moles /volume] in Central venous bloodOrdered By: Kathie Powers on 11-10-2024 CO2 [Moles/Vol] 13.3 mmol/L Low 21.0-32.0 [facility] Carbon dioxide, total [Moles/volume] in Central venous blood 13.3 mmol/L Low 21.0-32.0 [facility] Chloride assayOrdered By: Paulette Powers on 11-10-2024 Chloride [Moles/Vol] 99 mmol/L 98-108 [facility] Chloride assay 99 mmol/L 98-108 [facility] Clarity (U)Ordered By: Kathie Powers on 11-10-2024 Urine clarity Turbid Clear [facility] Color (U)Ordered By: Kathie Alcaraz ierce on 11-10-2024 Urine color determination Brown Yellow [facility] Creatinine [Mass/Vol]Ordered By: Kathie Powers on 11-10-2024 Serum creatinine measurement (mass/volume) 1.13 mg/dL 0.70-1.20 [facility] Eosinophil percentageOrdered By: Kathie Powers on 11-10-2024 Eosinophils/100 WBC (Bld) 1.9 % 0-5 [facility] Eosinophil percentage 1.9 % 0-5 [facility] Erythrocyte distribution wid th (RBC) [Ratio]Ordered By: Kathie Powers on 11-10-2024 Erythrocyte distribution width ratio 18.1 % High 11.6-14.6 [facility] Erythrocyte distribution width standard deviation 62.1 fl High 35.1-43.9 [facility] Erythrocyte distribution wid th ratioOrdered By: Kathie Powers on 11-10-2024 Erythrocyte distribution width (RBC) [Ratio] 18.1 % High 11.6-14.6 [facility] Erythrocyte distribution wid th standard deviationOrdered By: Kathie Powers on 11-10-2024 Erythrocyte distribution width (RBC) [Ratio] 62.1 fl High 35.1-43.9 [facility] Estimation of creatinine obed aranceOrdered By: Kathie Powers on 11-10-2024 Estimation of creatinine clearance 88.23 ml/min 50-250 [facility] GFR/1.73 sq M.predicted niki g non-blacks MDRD (S/P/Bld) [Vol rate/Area]Ordered By: Kathie Powers on 11-10-2024 Glomerular filtration rate (GFR) estimation/1.73 sq m using serum, plasma, or whole b 75 >60 [facility] Glomerular filtration rate ( GFR) estimation/1.73 sq m using serum, plasma, or whole bOrdered By: Kathie Powers on 11-10-2024 GFR/1.73 sq M.predicted among non-blacks MDRD (S/P/Bld) [Vol rate/Area] 75 mL/min/{1.73_m2} >60 [facility] Glucose Ql (U)Ordered By: Paulette Powers on 11-10-2024 Urine glucose detection Normal mg/dl Normal [facility] Glucose [Mass/Vol]Ordered By : Kathie Powers on 11-10-2024 Serum glucose measurement (mass/volume) 298 mg/dL High 70-99 [facility] Glucose measurement at bedsi deOrdered By: Kathie Powers on 11-10-2024 Glucose [Mass/Vol] 265 mg/dL High 74-106 [facility] Glucose measurement at bedside 265 mg/dL High 74-106 [facility] Hematocrit Auto (Bld) [Volum e fraction]Ordered By: Kathie Powers on 11-10-2024 Hematocrit (Bld) [Volume fraction] 32.9 % Low 40-54 [facility] Automated blood hematocrit (percentage) 32.9 % Low 40-54 [facility] Hemoglobin measurementOrdere d By: Kathie Powers on 11-10-2024 Hemoglobin (Bld) [Mass/Vol] 11.3 g/dL Low 13.0-16.5 [facility] Hemoglobin measurement 11.3 g/dL Low 13.0-16.5 [facility] Immature granulocytes/100 WB C Auto (Bld)Ordered By: Kathie Powers on 11-10-2024 Immature granulocytes/100 WBC (Bld) 1.100 % High 0.0-0.9 [facility] Automated immature granulocyte percentage 1.100 % High 0.0-0.9 [facility] International normalized rat io (INR) calculationOrdered By: Kathie Powers on 11-10-2024 International normalized ratio (INR) calculation 3.1 [facility] Ketones Test strip Ql (U)Ord ered By: Kathie Powers on 11-10-2024 Ketones Ql (U) 5 mg/dl High Negative [facility] Urine ketones detection by test strip 5 mg/dl High Negative [facility] Leukocyte esterase Test stri p Ql (U)Ordered By: Kathie Powers on 11-10-2024 Urine leukocyte esterase detection by dipstick 500 /ul High Negative [facility] Lymphocytes Auto (Unsp spec) [#/Vol]Ordered By: Kathie Powers on 11-10-2024 Absolute lymphocyte count 1.30 X10^3/uL 0.83-4.51 [facility] Lymphocytes/100 WBC Auto (Un sp spec)Ordered By: Kathie Powers on 11-10-2024 Automated lymphocyte count as percentage of total leukocytes 6.6 % Low 19-41 [facility] MCV (RBC) [Entitic vol]Order ed By: Kathie Powers on 11-10-2024 MCV (mean corpuscular volume) determination 92.7 fL 80-94 [facility] MCV (mean corpuscular volume ) determinationOrdered By: Kathie Powers on 11-10-2024 MCV (RBC) [Entitic vol] 92.7 fL 80-94 [facility] Mean corpuscular hemoglobin (MCH) determinationOrdered By: Kathie Powers on 11-10-2024 MCH (RBC) [Entitic mass] 31.8 pg 27.0-32.0 [facility] Mean corpuscular hemoglobin (MCH) determination 31.8 pg 27.0-32.0 [facility] Mean corpuscular hemoglobin concentration (MCHC) determinationOrdered By: Kathie Powers on 11-10-2024 Mean corpuscular hemoglobin concentration (MCHC) determination 34.3 g/dL 32-36 [facility] Mean platelet volume determi nationOrdered By: Kathie Powers on 11-10-2024 Mean platelet volume determination 12.2 fl High 6.2-12.0 [facility] Microscopic analysis of urin e for red blood cells (RBC)Ordered By: Kathie Powers on 11-10-2024 Microscopic analysis of urine for red blood cells (RBC) > 100 SEEN /hpf 0-5 [facility] Monocyte percentageOrdered B y: Kathie Powers on 11-10-2024 Monocytes/100 WBC (Bld) 6.9 % 0-10 [facility] Monocyte percentage 6.9 % 0-10 [facility]uc[facility] LM Ql (Urine sed)Order ed By: Kathie Powers on 11-10-2024 Mucus Ql (Urine sed) 0 SEEN /hpf [facility] Neutrophil percentageOrdered By: Kathie Powers on 11-10-2024 Neutrophils/100 WBC (Bld) 83.0 % High 47-70 [facility] Neutrophil percentage 83.0 % High 47-70 [facility] Nitrite Test strip Ql (U)Ord ered By: Kathie Powers on 11-10-2024 Nitrite Ql (U) Positive High Negative [facility] Urine nitrite test by dipstick Positive High Negative [facility] No Panel InformationOrdered By: Kathie Powers on 11-10-2024 58 U/L High <38 [facility] Nucleated red blood cell per centageOrdered By: Kathie Powers on 11-10-2024 Nucleated red blood cell percentage 0 % 0-5 [facility] Platelet countOrdered By: Paulette Powers on 11-10-2024 Platelets (Bld) [#/Vol] 58 10*3/uL Low 150-450 [facility] Platelet count 58 K/mm3 Low 150-450 [facility] Potassium (Unsp spec) [Mass/ Vol]Ordered By: Kathie Powers on 11-10-2024 Potassium measurement (mass/volume) 3.6 mmol/L 3.3-5.1 [facility] Potassium measurement (mass/ volume)Ordered By: Kathie Powers on 11-10-2024 Potassium (Unsp spec) [Mass/Vol] 3.6 mmol/L 3.3-5.1 [facility] Protein Test strip Ql (U)Ord ered By: Kathie Powers on 11-10-2024 Protein Ql (U) 500 mg/dl High Negative [facility] Urine protein assay by test strip, semi-quantitative 500 mg/dl High Negative [facility] Prothrombin timeOrdered By: Kathie Powers on 11-10-2024 PT Coag (PPP) [Time] 32.3 s High 11.7-14.9 [facility] Prothrombin time 32.3 SECONDS High 11.7-14.9 [facility] RBC Auto (Bld) [#/Vol]Ordere d By: Kathie Powers on 11-10-2024 RBC (Bld) [#/Vol] 3.55 10*6/uL Low 4.6-6.2 [facility] Automated blood erythrocyte count 3.55 M/mm3 Low 4.6-6.2 [facility] Serum creatinine measurement (mass/volume)Ordered By: Kathie Powers on 11-10-2024 Creatinine [Mass/Vol] 1.13 mg/dL 0.70-1.20 [facility] Serum globulin measurementOr dered By: Kathie Powers on 11-10-2024 Globulin (S) [Mass/Vol] 3.4 g/dL 2.2-4.2 [facility] Serum globulin measurement 3.4 g/dL 2.2-4.2 [facility] Serum glucose measurement (m ass/volume)Ordered By: Kathie Powers on 11-10-2024 Glucose [Mass/Vol] 298 mg/dL High 70-99 [facility] Serum or plasma alanine thomas otransferase (ALT) measurementOrdered By: Kathie Powers on 11-10-2024 ALT [Catalytic activity/Vol] 36 U/L <47 [facility] Serum or plasma albumin roosevelt urement (mass/volume)Ordered By: Kathie Powers on 11-10-2024 Albumin [Mass/Vol] 2.3 g/dL Low 3.5-5.0 [facility] Serum or plasma albumin/glob ulin mass ratioOrdered By: Kathie Powers on 11-10-2024 Albumin/Globulin [Mass ratio] 0.7 {ratio} Low 0.9-2.4 [facility] Serum or plasma alkaline kendrick sphatase measurementOrdered By: Kathie Powers on 11-10-2024 ALP [Catalytic activity/Vol] 310 U/L High 40-129 [facility] Serum or plasma calcium roosevelt urement (mass/volume)Ordered By: Kathie Powers on 11-10-2024 Calcium [Mass/Vol] 9.2 mg/dL 7.6-11.0 [facility] Serum or plasma urea nitroge n measurement (mass/volume)Ordered By: Kathie Powers on 11-10-2024 Urea nitrogen [Mass/Vol] 19 mg/dL 4-19 [facility] Sodium levelOrdered By: Javed Powers on 11-10-2024 Sodium [Moles/Vol] 123 mmol/L Low 133-145 [facility] Sodium level 123 mmol/L Low 133-145 [facility] Specific gravity (U) [Rel de nsity]Ordered By: Kathie Powers on 11-10-2024 Urine specific gravity measurement 1.015 1.002-1.030 [facility] Squamous epithelial cells de tection in urine sediment by light microscopyOrdered By: Kathie Powers on 11-10-2024 Epithelial cells.squamous LM Ql (Urine sed) 0 SEEN /hpf 0-5 [facility] Squamous epithelial cells detection in urine sediment by light microscopy 0 SEEN /hpf [facility] Total proteinOrdered By: Tyree Powers on 11-10-2024 Protein [Mass/Vol] 5.7 g/dL Low 5.9-8.4 [facility] Total protein 5.7 g/dL Low 5.9-8.4 [facility] Urea nitrogen [Mass/Vol]Orde red By: Kathie Powers on 11-10-2024 Serum or plasma urea nitrogen measurement (mass/volume) 19 mg/dL 4-19 [facility] Urine blood detectionOrdered By: Kahtie Powers on 11-10-2024 Urine blood detection 250 /ul High Negative [facility] Urine clarityOrdered By: Tyree Powers on 11-10-2024 Clarity (U) Turbid Clear [facility] Urine color determinationOrd ered By: Kathie Powers on 11-10-2024 Color (U) Brown Yellow [facility] Urine glucose detectionOrder ed By: Kathie Powers on 11-10-2024 Glucose Ql (U) Normal mg/dl Normal [facility] Urine leukocyte esterase det ection by dipstickOrdered By: Kathie Powers on 11-10-2024 Leukocyte esterase Test strip Ql (U) 500 /ul High Negative [facility] Urine pHOrdered By: Kathie garcias on 11-10-2024 pH (U) 6.5 [pH] 5.0 - 8.0 [facility] Urine sediment bacteria coun t by microscopy (number/high power field)Ordered By: Kathie Powers on 11-10-2024 Bacteria LM.HPF (Urine sed) [#/Area] 2 /[HPF] None Seen [facility] Urine specific gravity measu rementOrdered By: Kathie Powers on 11-10-2024 Specific gravity (U) [Rel density] 1.015 1.002-1.030 [facility] Urine urobilinogen measureme ntOrdered By: Kathie Powers on 11-10-2024 Urobilinogen Ql (U) 1 mg/dl High Normal [facility] Urobilinogen Ql (U)Ordered B y: Kathie Powers on 11-10-2024 Urine urobilinogen measurement 1 mg/dl High Normal [facility] White blood cell (WBC) count Ordered By: Kathie Powers on 11-10-2024 WBC (Bld) [#/Vol] 19.6 10*3/uL High 4.4-11.0 [facility] White blood cell (WBC) count 19.6 K/mm3 High 4.4-11.0 [facility] White blood cell countOrdere d By: Kathie Powers on 11-10-2024 White blood cell count 5-10 SEEN /hpf 0-5 [facility] White blood cell count 5-10 SEEN /hpf 0-5 [facility] pH (U)Ordered By: Kathie aguilar on 11-10-2024 Urine pH 6.5 5.0 - 8.0 [facility] Blood manual differential co mment interpretation (narrative result)Ordered By: Kathie Powers on 11-09-2024 Manual differential comment Marco Antonio (Bld) [Interp] SCANNED [facility] Lactic acid measurementOrder ed By: Kathie Powers on 11-09-2024 Lactic acid measurement 2.4 mmol/L High 0.0-2.0 [facility] Manual differential comment Marco Antonio (Bld) [Interp]Ordered By: Kathie Powers on 11-09-2024 Blood manual differential comment interpretation (narrative result) SCANNED [facility] Pathologist review Marco Antonio (Unsp spec) [Interp]Ordered By: Kathie Powers on 11-09-2024 Review by pathologist N/A [facility] Platelet estimateOrdered By: Kathie Powers on 11-09-2024 Platelets LM Ql (Bld) MKD DEC ADEQ [facility] Platelets LM Ql (Bld)Ordered By: Kathie Powers on 11-09-2024 Platelet estimate MKD DEC ADEQ [facility] Review by pathologistOrdered By: Kathie Powers on 11-09-2024 Pathologist review Marco Antonio (Unsp spec) [Interp] N/A [facility] Venous blood ammonia measure mentOrdered By: Kathie Powers on 11-09-2024 Ammonia (P) [Moles/Vol] 104.0 umol/L High 16-60 [facility] Venous blood ammonia measurement 104.0 umol/L High 16-60 [facility] Lipase measurementOrdered By : Kathie Powers on 11-08-2024 Lipase measurement 94 U/L High 13-75 [facility] Magnesium (Unsp spec) [Mass/ Vol]Ordered By: Kathie Powers on 11-08-2024 Magnesium measurement (mass/volume) 2.4 mg/dL High 1.5-2.2 [facility] Magnesium measurement (mass/ volume)Ordered By: Kathie Powers on 11-08-2024 Magnesium (Unsp spec) [Mass/Vol] 2.4 mg/dL High 1.5-2.2 [facility] Serum phosphorus measurement Ordered By: Kathie Powers on 11-08-2024 Serum phosphorus measurement 1.6 mg/dL Low 2.7-4.5 [facility] Blood polychromasia detectio n by light microscopyOrdered By: Hill Acuña on 11-07-2024 Polychromasia LM Ql (Bld) 1+ [facility] Blood polychromasia detection by light microscopy 1+ [facility] Ovalocyte detectionOrdered B y: Hill Acuña on 11-07-2024 Ovalocytes LM Ql (Bld) 1+ [facility] Band form neutrophils/100 WB C (Bld)Ordered By: Hill Acuña on 11-03-2024 Blood band neutrophil count as percentage of total leukocytes 6 % High 0-5 [facility] Blood band neutrophil count as percentage of total leukocytesOrdered By: Hlil Acuña on 11-03-2024 Band form neutrophils/100 WBC (Bld) 6 % High 0-5 [facility] Blood eosinophils/100 leukoc ytesOrdered By: Hill Acuña on 11-03-2024 Eosinophils/100 WBC (Bld) 1 % 0-5 [facility] Blood lymphocytes/100 leukoc ytesOrdered By: Hill Acuña on 11-03-2024 Lymphocytes/100 WBC (Bld) 2 % Low 19-41 [facility] Blood lymphocytes/100 leukocytes 2 % 0-10 [facility] Blood metamyelocytes/100 bri kocytesOrdered By: Hill Acuña on 11-03-2024 Metamyelocytes/100 WBC (Bld) 1 % 0-1 [facility] Blood metamyelocytes/100 leukocytes 1 % 0-5 [facility] Blood monocytes/100 leukocyt esOrdered By: Hill Acuña on 11-03-2024 Monocytes/100 WBC (Bld) 2 % 0-10 [facility] Blood segmented neutrophils/ 100 leukocytesOrdered By: Hill Acuña on 11-03-2024 Segmented neutrophils/100 WBC (Bld) 85 % High 47-70 [facility] Cells counted Molgen (Bld/Ti ss) [#]Ordered By: Hill Acuña on 11-03-2024 Total cell count 100 MANUAL DIFF [facility] Segmented neutrophils/100 WB C (Bld)Ordered By: Hill Acuña on 11-03-2024 Blood segmented neutrophils/100 leukocytes 85 % High 47-70 [facility] Total cell countOrdered By: Hill Acuña on 11-03-2024 Cells counted [employer] (Bld/Tiss) [#] 100 MANUAL DIFF [facility] Erythrocyte morphology asses smentOrdered By: Hill Acuña on 11-02-2024 RBC morphology finding Nom (Bld) NORM C+C NORMAL NORM C&C [facility] RBC morphology finding Nom ( Bld)Ordered By: Hill Acuña on 11-02-2024 Erythrocyte morphology assessment NORM C+C NORMAL NORM C&C [facility] Trough vancomycin levelOrder ed By: Buster Fuchs on 11-01-2024 Vancomycin trough [Mass/Vol] 17.7 ug/mL High 5.0-15.0 [facility] Vancomycin trough [Mass/Vol] Ordered By: Buster Fuchs on 11-01-2024 Trough vancomycin level 17.7 ug/mL High 5.0-15.0 [facility] Activated partial thrombopla stin time (aPTT) in platelet poor plasma by coagulation aOrdered By: Buster Fuchs on 10-31-2024 aPTT Coag (PPP) [Time] 42.7 s High 24.1-36.2 [facility] aPTT Coag (PPP) [Time]Ordere d By: Buster Fuchs on 10-31-2024 Activated partial thromboplastin time (aPTT) in platelet poor plasma by coagulation a 42.7 Seconds High 24.1-36.2 [facility] C. difficile Ql (Stl)Ordered By: Hill Wright on 10-30-2024 Stool Clostridium difficile detection Toxigenic C. difficile Abnormal [facility] Clostridium difficile detect ion by polymerase chain reactionOrdered By: Hill Wright on 10-30-2024 C. difficile DNA ANANTH+probe Ql (Unsp spec) [facility] Stool Clostridium difficile detectionOrdered By: Hill Wright on 10-30-2024 C. difficile Ql (Stl) Toxigenic C. difficile Abnormal [facility] Stool lactoferrin detection by immunoassayOrdered By: Hill Wright on 10-30-2024 Lactoferrin IA Ql (Stl) [facility] Arterial patency Wrist arter y --pre arterial punctureOrdered By: Buster Fuchs on 10-29-2024 Assessment of wrist artery patency prior to arterial puncture Positive [facility] Assessment of wrist artery p atency prior to arterial punctureOrdered By: Buster Fuchs on 10-29-2024 Arterial patency Wrist artery --pre arterial puncture Positive [facility] Base excess Calc (BldV) [Mol es/Vol]Ordered By: Buster Fuchs on 10-29-2024 Blood base excess determination -10 mmol/L [facility] Blood base excess determinat ionOrdered By: Buster Fuchs on 10-29-2024 Base excess Calc (BldV) [Moles/Vol] -10 mmol/L [facility] Blood bicarbonate measuremen tOrdered By: Buster Fuchs on 10-29-2024 HCO3 (Bld) [Moles/Vol] 15.2 mmol/L Low 22- [facility] Blood bicarbonate measurement 15.2 mmol/L Low [facility] Blood cultureOrdered By: Hugo Wright on 10-29-2024 Bacteria identified Cx Nom (Bld) No growth in 5 days. [facility] Blood culture No growth in 5 days. [facility] Calculated very low density lipoprotein (VLDL) cholesterol measurementOrdered By: Hill Wright on 10-29-2024 Calculated very low density lipoprotein (VLDL) cholesterol measurement 17 mg/dL 5-40 [facility] Calculated very low density lipoprotein (VLDL) cholesterol measurement 17 mg/dL 5-40 [facility] Cholesterol [Mass/Vol]Ordere d By: Hill Wright on 10-29-2024 Serum or plasma cholesterol measurement (mass/volume) 132 mg/dL <201 [facility] Cholesterol in HDL [Mass/Vol ]Ordered By: Hill Wright on 10-29-2024 Serum or plasma cholesterol in HDL measurement (mass/volume) 33 mg/dL Low >40 [facility] Determination of fraction of inspired oxygenOrdered By: Buster Fuchs on 10-29-2024 Determination of fraction of inspired oxygen 21.0 [facility] Electrocardiogram reportOrde red By: Jeovanny Ramos on 10-29-2024 EKG study [facility] Other Phone: LDL calc ser/plasOrdered By: Hill Wright on 10-29-2024 Cholesterol in LDL [Mass/Vol] 83 mg/dL [facility] Measurement, pHOrdered By: Stacy Fuchs on 10-29-2024 pH (Unsp spec) 7.39 [pH] 7.35-7.45 [facility] No Panel InformationOrdered By: Buster Fuchs on 10-29-2024 ART [facility] L Radial [facility] Not entered [facility] Room Air [facility] No Panel InformationOrdered By: Hill Wright on 10-29-2024 10.20 ug/dL 6.02-18.40 [facility] Osmolality, serumOrdered By: Hill Wright on 10-29-2024 Osmolality, serum 292 mOsm/KG 275-295 [facility] Oxygen saturation measuremen tOrdered By: Buster Fuchs on 10-29-2024 Oxygen saturation measurement 93 % Low 95-99 [facility] Partial pressure of carbon d ioxide measurementOrdered By: Buster Fuchs on 10-29-2024 Partial pressure of carbon dioxide measurement 25.1 mmHg Low 35-45 [facility] Partial pressure of oxygen m easurementOrdered By: Buster Fuchs on 10-29-2024 Partial pressure of oxygen measurement 67 mmHG Low 75-100 [facility] Screening total cholesterol/ high density lipoprotein (HDL) cholesterol ratioOrdered By: Hill Wright on 10-29-2024 Screening total cholesterol/high density lipoprotein (HDL) cholesterol ratio 4.04 [facility] Serum or plasma cholesterol in HDL measurement (mass/volume)Ordered By: Hill Wright on 10-29-2024 Cholesterol in HDL [Mass/Vol] 33 mg/dL Low >40 [facility] Serum or plasma cholesterol measurement (mass/volume)Ordered By: Hill Wright on 10-29-2024 Cholesterol [Mass/Vol] 132 mg/dL <201 [facility] Total carbon dioxide measure mentOrdered By: Buster Fuchs on 10-29-2024 CO2 [Moles/Vol] 16 mmol/L [facility] Total carbon dioxide measurement 16 mmol/L [facility] Triglycerides measurementOrd ered By: Hill Wright on 10-29-2024 Triglycerides measurement 83 mg/dL [facility] Urine cultureOrdered By: Viraj Dunn on 10-29-2024 Bacteria identified Cx Nom (U) Culture exhibits no growth. [facility] Urine culture Culture exhibits no growth. [facility] pH (Unsp spec)Ordered By: Marianna Fuchs on 10-29-2024 Measurement, pH 7.39 7.35-7.45 [facility] Absolute neutrophil countOrd ered By: Alber Dunn on 10-28-2024 Neutrophils (Bld) [#/Vol] 19.0 10*3/uL High 2.0-7.7 [facility] Amorphous sediment LM Ql (Ur ine sed)Ordered By: Alber Dunn on 10-28-2024 Amorphous sediment detection in urine sediment by light microscopy 1+ URATE [facility] Amorphous sediment detection in urine sediment by light microscopyOrdered By: Alber Dunn on 10-28-2024 Amorphous sediment LM Ql (Urine sed) 1+ URATE [facility] Anion gap in Serum or Plasma Ordered By: Alber Dunn on 10-28-2024 Anion gap [Moles/Vol] 17 mmol/L High 5-15 [facility] BUN/creatinine ratioOrdered By: Alber Dunn on 10-28-2024 Urea nitrogen/Creatinine [Mass ratio] 18.8 mg/mg 10-20 [facility] Basophil percentageOrdered B y: Alber Dunn on 10-28-2024 Basophils/100 WBC (Bld) 0.2 % 0-1 [facility] Bilirubin Test strip Ql (U)O rdered By: Alber Dunn on 10-28-2024 Bilirubin Ql (U) 1 mg/dL High Negative [facility] Comment on above: COLOR OF URINE MAY A FFECT DIPSTICK RESULTS. Bilirubin, totalOrdered By: Alber Dunn on 10-28-2024 Bilirubin [Mass/Vol] 1.86 mg/dL High 0.00-1.30 [facility] Carbon dioxide, total [Moles /volume] in Central venous bloodOrdered By: Alber Dunn on 10-28-2024 CO2 [Moles/Vol] 12.4 mmol/L Low 21.0-32.0 [facility] Chloride assayOrdered By: Hernesto Dunn on 10-28-2024 Chloride [Moles/Vol] 98 mmol/L 98-108 [facility] Eosinophil percentageOrdered By: Alber Dunn on 10-28-2024 Eosinophils/100 WBC (Bld) 1.4 % 0-5 [facility] Epithelial cells.squamous LM Ql (Urine sed)Ordered By: Alber Dunn on 10-28-2024 Epithelial cells.squamous LM.HPF (Urine sed) [#/Area] 5 /[HPF] 0-5 [facility] Erythrocyte distribution wid th ratioOrdered By: Alber Dunn on 10-28-2024 Erythrocyte distribution width (RBC) [Ratio] 19.1 % High 11.6-14.6 [facility] Erythrocyte distribution wid th standard deviationOrdered By: Alber Dunn on 10-28-2024 Erythrocyte distribution width (RBC) [Entitic vol] 62.7 fL High 35.1-43.9 [facility] GFR/1.73 sq M.predicted niki g non-blacks MDRD (S/P/Bld) [Vol rate/Area]Ordered By: Alber Dunn on 10-28-2024 Estimated GFR (MDRD) Non-Af Amer 62 >60 [facility] Comment on above: mL/min/1.73m2 CKD-EP I Creatinine Equation (2020) Glucose Ql (U)Ordered By: Hernesto Dunn on 10-28-2024 Glucose (U) [Mass/Vol] 50 mg/dL High Normal [facility] HbA1c (Bld) [Mass fraction]O rdered By: Hill Wright on 10-28-2024 Hemoglobin A1c percentage 6.7 % >5.7 [facility] Hematocrit Auto (Bld) [Volum e fraction]Ordered By: Alber Dunn on 10-28-2024 Hematocrit (Bld) [Volume fraction] 37.3 % Low 40-54 [facility] Hemoglobin A1c percentageOrd ered By: Hill Wright on 10-28-2024 HbA1c (Bld) [Mass fraction] 6.7 % >5.7 [facility] Hemoglobin measurementOrdere d By: Alber Dunn on 10-28-2024 Hemoglobin (Bld) [Mass/Vol] 12.7 g/dL Low 13.0-16.5 [facility] Immature granulocytes/100 WB C Auto (Bld)Ordered By: Alber Dunn on 10-28-2024 Immature granulocytes/100 WBC (Bld) 1.400 % High 0.0-0.9 [facility] Comment on above: IG% - Immature Granu locytes (promyelocytes, myelocytes and metamyelocytes) > 1% indicates that a LEFT SHIFT is Present. Ketones Test strip Ql (U)Ord ered By: Alber Dunn on 10-28-2024 Ketones Ql (U) 5 mg/dl High Negative [facility] Laboratory - Chemistry and C hemistry - challengeOrdered By: Alber Dunn on 10-28-2024 AST [Catalytic activity/Vol] 48 U/L High <38 [facility] Comment on above: Hemolysis present, R esults could be affected. Laboratory - Hematology and Cell countsOrdered By: Alber Dunn on 10-28-2024 Anisocytosis Ql (Bld) RARE [facility] Lactic acid measurementOrder ed By: Alber Dunn on 10-28-2024 Lactate [Moles/Vol] 4.0 mmol/L High 0.0-2.0 [facility] Comment on above: Critical Result(s) [...] 10-28-2024 Lipase [Catalytic activity/Vol] 45 U/L 13-75 [facility] Comment on above: Please note:LIPASE r evised reference range effective 22. New Lipase methodology. Expected to produce lower values than the previous assay method. NEW Reference Range: 13 - 75 U/L Lymphocytes Auto (Unsp spec) [#/Vol]Ordered By: Alber Dunn on 10-28-2024 Lymphocytes (Bld) [#/Vol] 1.28 10*3/uL 0.83-4.51 [facility] Lymphocytes/100 WBC Auto (Un sp spec)Ordered By: Alber Dunn on 10-28-2024 Lymphocytes/100 WBC (Bld) 5.6 % Low 19-41 [facility] MCV (mean corpuscular volume ) determinationOrdered By: Alber Dunn on 10-28-2024 MCV (RBC) [Entitic vol] 91.2 fL 80-94 [facility] Macrocytes Ql (Bld)Ordered B y: Alber Dunn on 10-28-2024 Macrocytosis RARE [facility] Macrocytes detection RARE [facility] Macrocytes detectionOrdered By: Alber Dunn on 10-28-2024 Macrocytes Ql (Bld) RARE [facility] Manual differential comment Marco Antoino (Bld) [Interp]Ordered By: Alber Dunn on 10-28-2024 Differential Comment SEE COMMENT [facility] Comment on above: MONOCYTOSIS NOTED Mean corpuscular hemoglobin (MCH) determinationOrdered By: Alber Dunn on 10-28-2024 MCH (RBC) [Entitic mass] 31.1 pg 27.0-32.0 [facility] Mean corpuscular hemoglobin concentration (MCHC) determinationOrdered By: Alber Dunn on 10-28-2024 MCHC (RBC) [Mass/Vol] 34.0 g/dL 32-36 [facility] Mean platelet volume determi nationOrdered By: Alber Dunn on 10-28-2024 Platelet mean volume (Bld) [Entitic vol] 12.0 fL 6.2-12.0 [facility] Microscopic analysis of urin e for red blood cells (RBC)Ordered By: Alber Dunn on 10-28-2024 Urine RBC > 100 SEEN /hpf 0-5 [facility] Monocyte percentageOrdered B y: Alber Dunn on 10-28-2024 Monocytes/100 WBC (Bld) 8.4 % 0-10 [facility] Mucus LM Ql (Urine sed)Order ed By: Alber Dunn on 10-28-2024 Mucus Ql (Urine sed) 0 SEEN /hpf [facility] Neutrophil percentageOrdered By: Alber Dunn on 10-28-2024 Neutrophils/100 WBC (Bld) 83.0 % High 47-70 [facility] Nitrite Test strip Ql (U)Ord ered By: Alber Dunn on 10-28-2024 Nitrite Ql (U) Negative Negative [facility] Nucleated red blood cell per centageOrdered By: Alber Dunn on 10-28-2024 Nucleated RBC/100 WBC (Bld) [Ratio] 0 % 0-5 [facility] Osmolality (U) [Osmolality]O rdered By: Hill Wright on 10-28-2024 Osmolality ur 484 mOsm/KG >50 [facility] Osmolality urOrdered By: Hugo Wright on 10-28-2024 Osmolality (U) [Osmolality] 484 mOsm/KG >50 [facility] Ovalocytes LM Ql (Bld)Ordere d By: Alber Dunn on 10-28-2024 Ovalocytes RARE [facility] Pathologist review Marco Antonio (Unsp spec) [Interp]Ordered By: Alber Dunn on 10-28-2024 Differential Pathologist's Review [facility] Platelet countOrdered By: Hernesto Dunn on 10-28-2024 Platelets (Bld) [#/Vol] 142 10*3/uL Low 150-450 [facility] Platelets LM Ql (Bld)Ordered By: Alber Dunn on 10-28-2024 Platelet Estimate ADEQUATE ADEQ [facility] Potassium (Unsp spec) [Mass/ Vol]Ordered By: Alber Dunn on 10-28-2024 Potassium [Moles/Vol] 4.5 mmol/L 3.3-5.1 [facility] Comment on above: Hemolysis present, R esults could be affected. Protein Test strip Ql (U)Ord ered By: Alber Dunn on 10-28-2024 Protein Ql (U) 500 mg/dl High Negative [facility] RBC Auto (Bld) [#/Vol]Ordere d By: Alber Dunn on 10-28-2024 RBC (Bld) [#/Vol] 4.09 10*6/uL Low 4.6-6.2 [facility] RBC morphology finding Nom ( Bld)Ordered By: Alber Dunn on 10-28-2024 Red Blood Cell Morphology N CHROM NORMAL NORM C&C [facility] Serum creatinine measurement (mass/volume)Ordered By: Alber Dunn on 10-28-2024 Creatinine [Mass/Vol] 1.33 mg/dL High 0.70-1.20 [facility] Serum globulin measurementOr dered By: Alber Dunn on 10-28-2024 Globulin (S) [Mass/Vol] 3.4 g/dL 2.2-4.2 [facility] Serum glucose measurement (m ass/volume)Ordered By: Alber Dunn on 10-28-2024 Glucose [Mass/Vol] 338 mg/dL High 70-99 [facility] Serum or plasma alanine thomas otransferase (ALT) measurementOrdered By: Alber Dunn on 10-28-2024 ALT [Catalytic activity/Vol] 23 U/L <47 [facility] Serum or plasma albumin roosevelt urement (mass/volume)Ordered By: Alber Dunn on 10-28-2024 Albumin [Mass/Vol] 2.5 g/dL Low 3.5-5.0 [facility] Serum or plasma albumin/glob ulin mass ratioOrdered By: Alber Dunn on 10-28-2024 Albumin/Globulin [Mass ratio] 0.7 {ratio} Low 0.9-2.4 [facility] Serum or plasma alkaline kendrick sphatase measurementOrdered By: Alber Dunn on 10-28-2024 ALP [Catalytic activity/Vol] 274 U/L High 40-129 [facility] Serum or plasma calcium roosevelt urement (mass/volume)Ordered By: Alber Dunn on 10-28-2024 Calcium [Mass/Vol] 9.2 mg/dL 7.6-11.0 [facility] Serum or plasma urea nitroge n measurement (mass/volume)Ordered By: Alber Dunn on 10-28-2024 Urea nitrogen [Mass/Vol] 25 mg/dL High 4-19 [facility] Sodium levelOrdered By: Alber Dunn on 10-28-2024 Sodium [Moles/Vol] 128 mmol/L Low 133-145 [facility] Total proteinOrdered By: Viraj Dunn on 10-28-2024 Protein [Mass/Vol] 5.9 g/dL 5.9-8.4 [facility] Urine blood detectionOrdered By: Alber Dunn on 10-28-2024 Urine Occult Blood 250 /ul High Negative [facility] Urine clarityOrdered By: Viraj Dunn on 10-28-2024 Clarity (U) Cloudy Clear [facility] Urine color determinationOrd ered By: Alber Dunn on 10-28-2024 Color (U) Red Yellow [facility] Urine leukocyte esterase det ection by dipstickOrdered By: Alber Dunn on 10-28-2024 Leukocyte esterase Test strip Ql (U) 500 /ul High Negative [facility] Urine pHOrdered By: Alber grajeda on 10-28-2024 pH (U) 6.5 [pH] 5.0 - 8.0 [facility] Urine sediment bacteria coun t by microscopy (number/high power field)Ordered By: Alber Dunn on 10-28-2024 Bacteria LM.HPF (Urine sed) [#/Area] 1 /[HPF] None Seen [facility] Urine specific gravity measu rementOrdered By: Alber Dunn on 10-28-2024 Specific gravity (U) [Rel density] 1.015 1.002-1.030 [facility] Urobilinogen Ql (U)Ordered B y: Alber Dunn on 10-28-2024 Urine Urobilinogen Normal mg/dl Normal [facility] White blood cell (WBC) count Ordered By: Alber Dunn on 10-28-2024 WBC (Bld) [#/Vol] 22.9 10*3/uL High 4.4-11.0 [facility] White blood cell countOrdere d By: Alber Dunn on 10-28-2024 Urine WBC >100 SEEN /hpf 0-5 [facility] APTTon 10-04-2024 aPTT Coag (PPP) [Time] 40 s High Un [facility] Albuminon 10-04-2024 Albumin (Body fld) [Mass/Vol] <0.5 Normal Not established [facility] Comment on above: Order Comment: Venip uncture immediately after or during the administration of Metamizole may lead to falsely low results. Testing should be performed immediately prior to Metamizole dosing. Performed By: #### 2 524-7 #### MIREYA SHAH ([id number]) [facility] ([facility]) [address] [place] [address] Bacteria identifiedon 2024 Bacteria identified Cx Nom (Body fld) Test: Sterile Fluid Culture/Smear Specimen Source: Pleural Specimen Type: Fluid Specimen Date: 10/04/20241713 Result Date: 10/08/2024824 Result Status: Final result Resulting Lab: [facility] [address] [place] [address] CULTURE No growth aerobically and anaerobically STAIN (1+) Rare Polymorphonuclear leukocytes No organisms seen Normal [facility] Comment on above: Performed By: #### 2 524-7 #### MIREYA SHAH ([id number]) [facility] ([facility]) [facility] [place] [address] Basic metabolic 2000 panelon 10-04-2024 Anion gap [Moles/Vol] 8 mmol/L Low 10 - 2 0 mmol/L [facility] Calcium [Mass/Vol] 8.1 mg/dL Low 8.6 - 10. 3 mg/dL [facility] Chloride [Moles/Vol] 109 mmol/L High 98 - 10 7 mmol/L [facility] CO2 [Moles/Vol] 24 mmol/L 21 - 32 mmol/L [facility] Creatinine [Mass/Vol] 0.73 mg/dL 0.50 - 1.30 mg/dL [facility] eGFR - PINF [facility] Comment on above: Calculations of patric mated GFR are performed using the 2020 CKD-EPI Study Refit equation without the race variable for the IDMS-Traceable creatinine methods. https://jasn.asnjournals.org/content//ASN.2020 768115 Glucose [Mass/Vol] 197 mg/dL High 74 - 99 mg/dL [facility] Potassium [Moles/Vol] 3.9 mmol/L 3.5 - 5.3 mmol/L [facility] Sodium [Moles/Vol] 137 mmol/L 136 - 145 mmol/L [facility] Urea nitrogen [Mass/Vol] 17 mg/dL 6 - 23 mg/dL [facility] Anion gap [Moles/Vol] 8 mmol/L Low 10-20 [facility] Comment on above: Performed By: #### 2 4321-2 #### MIREYA SHAH ([id number]) [facility] ([facility]) [facility] [place] [address] Calcium [Mass/Vol] 8.1 mg/dL Low 8.6-10.3 [facility] Comment on above: Performed By: #### 2 4321-2 #### MIREYA SHAH ([id number]) [facility] ([facility]) [address] [place] [address] Chloride [Moles/Vol] 109 mmol/L High 98-107 [facility] Comment on above: Performed By: #### 2 4321-2 #### MIREYA SHAH ([id number]) [facility] ([facility]) [address] [place] [address] CO2 [Moles/Vol] 24 mmol/L Normal 21-32 [facility] Comment on above: Performed By: #### 2 4321-2 #### MIREYA SHAH ([id number]) [facility] ([facility]) [address] [place] [address] Creatinine [Mass/Vol] 0.73 mg/dL Normal 0.50-1.30 [facility] Comment on above: Performed By: #### 2 4321-2 #### MIREYA SHAH ([id number]) [facility] ([facility]) [address] [place] [address] GFR/1.73 sq M.predicted MDRD (S/P/Bld) [Vol rate/Area] mL/min/{1.73_m2} Normal >60 [facility] Comment on above: Result Comment: Calc ulations of estimated GFR are performed using the 2020 CKD-EPI Study Refit equation without the race variable for the IDMS-Traceable creatinine methods. https://jasn.asnjournals.org/content/early//ASN.2020 963414 Performed By: #### 2 4321-2 #### MIREYA SHAH ([id number]) [facility] ([facility]) [address] [place] [address]686 Glucose [Mass/Vol] 197 mg/dL High 74-99 [facility] Comment on above: Performed By: #### 2 4321-2 #### MIREYA SHAH ([id number]) [facility] ([facility]) [address] [place] [address]120 Potassium [Moles/Vol] 3.9 mmol/L Normal 3.5-5.3 [facility] Comment on above: Performed By: #### 2 4321-2 #### MIREYA SHAH ([id number]) [facility] ([facility]) [address] [place] [address] Sodium [Moles/Vol] 137 mmol/L Normal 136-145 [facility] Comment on above: Performed By: #### 2 4321-2 #### MIREYA SHAH ([id number]) [facility] ([facility]) [address] [place] [address] 10541 Urea nitrogen [Mass/Vol] 17 mg/dL Normal 6-23 [facility] Comment on above: Performed By: #### 2 4321-2 #### MIREYA SHAH ([id number]) [facility] ([facility]) [address] [place] [address] CBC W Auto Differential pane l (Bld)on 10-04-2024 Basophils (Bld) [#/Vol] 0.02 10*3/uL [facility] Basophils/100 WBC (Bld) 0.4 % 0.0 - 2.0 % [facility] Eosinophils (Bld) [#/Vol] 0.15 10*3/uL [facility] Eosinophils/100 WBC (Bld) 2.7 % 0.0 - 6.0 % [facility] Erythrocyte distribution width (RBC) [Ratio] 22.1 % High 11.5 - 14.5 % [facility] Hematocrit (Bld) [Volume fraction] 29.8 % Low 41.0 - 52.0 % [facility] Hemoglobin (Bld) [Mass/Vol] 9.3 g/dL Low 13.5 - 17.5 g/dL [facility] Immature granulocytes (Bld) [#/Vol] 0.01 10*3/uL [facility] Immature granulocytes/100 WBC (Bld) 0.2 % 0.0 - 0.9 % [facility] Comment on above: Immature Granulocyte Count (IG) includes promyelocytes, myelocytes and metamyelocytes but does not include bands. Percent differential counts (%) should be interpreted in the context of the absolute cell counts (cells/UL). Interpretation and review of laboratory results Abnormal [facility] Lymphocytes (Bld) [#/Vol] 0.64 10*3/uL Low [facility] Lymphocytes/100 WBC (Bld) 11.5 % 13.0 - 44.0 % [facility] MCH (RBC) [Entitic mass] 30 pg 26.0 - 34.[address] [facility] MCHC (RBC) [Mass/Vol] 31.2 g/dL Low 32.0 - 36.0 g/dL [facility] MCV (RBC) [Entitic vol] 96 fL 80 - [address] [facility] Monocytes (Bld) [#/Vol] 0.46 10*3/uL [facility] Monocytes/100 WBC (Bld) 8.3 % 2.0 - 10.0 % [facility] Neutrophils (Bld) [#/Vol] 4.28 10*3/uL [facility] Comment on above: Percent differential counts (%) should be interpreted in the context of the absolute cell counts (cells/uL). Neutrophils/100 WBC (Bld) 76.9 % 40.0 - 80.0 % [facility] Nucleated RBC/100 WBC (Bld) [Ratio] 0 % [facility] Platelets (Bld) [#/Vol] 65 10*3/uL Low U [facility] RBC (Bld) [#/Vol] 3.1 10*6/uL Low [facility] WBC (Bld) [#/Vol] 5.6 10*3/uL [facility] Basophils (Bld) [#/Vol] 0.02 x10*3/uL Normal 0.00-0.10 [facility] Comment on above: Performed By: #### 5 7021-8 #### MIREYA SHAH ([id number]) [facility] ([facility]) [address] [place] [address] 98689 Basophils/100 WBC (Bld) 0.4 % Normal 0.0-2.0 [facility] Comment on above: Performed By: #### 5 7021-8 #### MIREYA SHAH ([id number]) [facility] ([facility]) [address] [place] [address] 56383 Eosinophils (Bld) [#/Vol] 0.15 x10*3/uL Normal 0.00-0.70 [facility] Comment on above: Performed By: #### 5 7021-8 #### MIREYA SHAH ([id number]) [facility] ([facility]) [address] [place] [address] 65067 Eosinophils/100 WBC (Bld) 2.7 % Normal 0.0-6.0 [facility] Comment on above: Performed By: #### 5 7021-8 #### MIREYA SHAH ([id number]) [facility] ([facility]) [address] [place] [address] Erythrocyte distribution width (RBC) [Ratio] 22.1 % High 11.5-14.5 [facility] Comment on above: Performed By: #### 5 7021-8 #### MIREYA SHAH ([id number]) [facility] ([facility]) [address] [place] [address] Hematocrit (Bld) [Volume fraction] 29.8 % Low 41.0-52.0 [facility] Comment on above: Performed By: #### 5 7021-8 #### MIREYA SHAH ([id number]) [facility] ([facility]) [address] [place] [address] Hemoglobin (Bld) [Mass/Vol] 9.3 g/dL Low 13.5-17.5 [facility] Comment on above: Performed By: #### 5 7021-8 #### MIREYA SHAH ([id number]) [facility] ([facility]) [address] [place] [address] Immature granulocytes (Bld) [#/Vol] 0.01 x10*3/uL Normal 0.00-0.70 [facility] Comment on above: Performed By: #### 5 7021-8 #### MIREYA SHAH ([id number]) [facility] ([facility]) [address] [place] [address] Immature granulocytes/100 WBC (Bld) 0.2 % Normal 0.0-0.9 [facility] Comment on above: Result Comment: Danielle ture Granulocyte Count (IG) includes promyelocytes, myelocytes and metamyelocytes but does not include bands. Percent differential counts (%) should be interpreted in the context of the absolute cell counts (cells/UL). Performed By: #### 5 7021-8 #### MIREYA SHAH ([id number]) [facility] ([facility]) [address] [place], [place] [address] Lymphocytes (Bld) [#/Vol] 0.64 x10*3/uL Low 1.20-4.80 [facility] Comment on above: Performed By: #### 5 7021-8 #### MIREYA SHAH ([id number]) [facility] ([facility]) [address] [place] [address] 77817 Lymphocytes/100 WBC (Bld) 11.5 % Normal 13.0-44.0 [facility] Comment on above: Performed By: #### 5 7021-8 #### MIREYA SHAH ([id number]) [facility] ([facility]) [address] [place] [address] 64138 MCH (RBC) [Entitic mass] 30.0 pg Normal 26.0-34.0 [facility] Comment on above: Performed By: #### 7021-8 #### MIREYA SHAH ([id number]) [facility] ([facility]) [address] [place] [address] 77674 MCHC (RBC) [Mass/Vol] 31.2 g/dL Low 32.0-36.0 [facility] Comment on above: Performed By: #### 5 7021-8 #### MIREYA SHAH ([id number]) [facility] ([facility]) [address] [place] [address] 21599 MCV (RBC) [Entitic vol] 96 fL Normal 80-100 [facility] Comment on above: Performed By: #### 5 7021-8 #### MIREYA SHAH ([id number]) [facility] ([facility]) [address] [place] [address] 35121 Monocytes (Bld) [#/Vol] 0.46 x10*3/uL Normal 0.10-1.00 [facility] Comment on above: Performed By: #### 5 7021-8 #### MIREYA SHAH ([id number]) [facility] ([facility]) [address] [place] [address] 51390 Monocytes/100 WBC (Bld) 8.3 % Normal 2.0-10.0 [facility] Comment on above: Performed By: #### 5 7021-8 #### MIREYA SHAH ([id number]) [facility] ([facility]) [address] [place] [address] 68814 Neutrophils (Bld) [#/Vol] 4.28 x10*3/uL Normal 1.20-7.70 [facility] Comment on above: Result Comment: Perc ent differential counts (%) should be interpreted in the context of the absolute cell counts (cells/uL). Performed By: #### 5 7021-8 #### MIREYA SHAH ([id number]) [facility] ([facility]) [address] [place] [address] 97783 Neutrophils/100 WBC (Bld) 76.9 % Normal 40.0-80.0 [facility] Comment on above: Performed By: #### 5 7021-8 #### MIREYA SHAH ([id number]) [facility] ([facility]) [address] [place] [address] 78174 Nucleated RBC/100 WBC (Bld) [Ratio] 0.0 /100 WBCs Normal 0.0-0.0 [facility] Comment on above: Performed By: #### 5 7021-8 #### MIREYA SHAH ([id number]) [facility] ([facility]) [address] [place] [address] 37411 Platelets (Bld) [#/Vol] 65 x10*3/uL Low 150-450 [facility] Comment on above: Performed By: #### 5 7021-8 #### MIREYA SHAH ([id number]) [facility] ([facility]) [address] [place] [address] 36902 RBC (Bld) [#/Vol] 3.10 x10*6/uL Low 4.50-5.90 [facility] Comment on above: Performed By: #### 5 7021-8 #### MIREYA SHAH ([id number]) [facility] ([facility]) [address] [place] [address] 04681 WBC (Bld) [#/Vol] 5.6 x10*3/uL Normal 4.4-11.3 [facility] Comment on above: Performed By: #### 5 7021-8 #### MIREYA SHAH ([id number]) [facility] ([facility]) [address] [place] [address] [place] [address] [address] ABDOMEN PELVIS W IV CONTR [place] 10-04-2024 CT ABDOMEN PELVIS W IV CONTRAST Interpreted By: Yohana Huang, STUDY: CT ABDOMEN PELVIS W IV CONTRAST; 10/04/2024 2:16 pm INDICATION: Signs/Symptoms:generaliz ed abdominal pain, hx of cirrhosis, recent paracentesis. COMPARISON: None. ACCESSION NUMBER(S): [id number] ORDERING CLINICIAN: SRIRAM OLEARY TECHNIQUE: CT of [...] Yohana Huang 10/04/2024 2:28 PM Dictation workstation: [id number] [facility] CT Abdomen and Pelvis W cont rast Jamari 10-04-2024 Coronary artery calcifications. Anasarca. Ascites. Small irregular liver consistent with cirrhosis. Extensive collateral vessels. Enlarged spleen. Ventral and inguinal hernias containing ascitic fluid. MACRO: none Signed by: Yohana Huang 10/04/2024 2:28 PM Dictation workstation: [id number] Interpreted By: Yohana Chen, STUDY: CT ABDOMEN PELVIS W IV CONTRAST; 10/04/2024 2:16 pm INDICATION: Signs/Symptoms:generaliz ed abdominal pain, hx of cirrhosis, recent paracentesis. COMPARISON: None. ACCESSION NUMBER(S): [id number] ORDERING CLINICIAN: SRIRAM OLEARY TECHNIQUE: CT of [...] cirrhosis, recent paracentesis. COMPARISON: None. ACCESSION NUMBER(S): [id number] ORDERING CLINICIAN: SRIRAM OLEARY TECHNIQUE: CT of [...] Yohana Huang 10/04/2024 2:28 PM Dictation workstation: [id number] [facility] Work Phone: Radiology Study observation (narrative) [facility] Work Phone: CT Abdomen and Pelvis W cont rast IVOrdered By: Yohana Huang on 10-04-[address] [facility] Work Phone: Cell count panel (Body fld)O rdered By: Fortino Mcgee on 10-04-2024 Clarity (Body fld) Hazy Abnormal Clear [facility] Color (Body fld) Straw Colorless, Straw, Yellow [facility] Interpretation and review of laboratory results Abnormal [facility] RBC Auto (Body fld) [#/Vol] 2000 /uL see comment [facility] WBC (Body fld) [#/Vol] 0.058 10*3/uL See Sarath t [facility] Body Fluid cell coun t reference ranges have not been established by [facility]. Reference ranges provided are based on published references. [facility] Cell count panel (Body fld)o n 10-04-2024 Clarity (Body fld) Hazy Abnormal Clear [facility] Comment on above: Order Comment: Body Fluid cell count reference ranges have not been established by [facility]. Reference ranges provided are based on published references. Performed By: #### 3 4556-1 #### MIREYA SHAH ([id number]) [facility] ([facility]) [address] [place] [address] Color (Body fld) Straw Normal Colorless, Straw, Yellow [facility] Comment on above: Order Comment: Body Fluid cell count reference ranges have not been established by [facility]. Reference ranges provided are based on published references. Performed By: #### 3 4556-1 #### MIREYA SHAH ([id number]) [facility] ([facility]) [address] [place] [address] 70917 RBC Auto (Body fld) [#/Vol] 2000 /uL Normal see comment [facility] Comment on above: Order Comment: Body Fluid cell count reference ranges have not been established by [facility]. Reference ranges provided are based on published references. Performed By: #### 3 4556-1 #### MIREYA SHAH ([id number]) [facility] ([facility]) [address] [place] [address] 10611 WBC (Body fld) [#/Vol] 0.058 10*3/uL Normal See Commevelin alex [facility] Comment on above: Order Comment: Body Fluid cell count reference ranges have not been established by [facility]. Reference ranges provided are based on published references. Performed By: #### 3 4556-1 #### MIREYA SHAH ([id number]) [facility] ([facility]) [address] [place], [place] [address] Coagulation surface inducedo n 10-04-2024 aPTT Coag (PPP) [Time] 40 s High 26-36 [facility] Comment on above: Order Comment: The A PTT is no longer used for monitoring Unfractionated Heparin Therapy. For monitoring Heparin Therapy, use the Heparin Assay. Performed By: #### 1 4979-9 #### MIREYA SHAH ([id number]) [facility] ([facility]) [address] [place], [place] [address] Coagulation tissue factor in ducedon 10-04-2024 PT Coag (PPP) [Time] 23.6 s High 9.8-12.4 [facility] Comment on above: Performed By: #### 5 902-2 #### MIREYA SHAH ([id number]) [facility] ([facility]) [address] [place], [place] [address] Differential panel (Body fld )on 10-04-2024 Basophils/100 WBC (Body fld) 0 % not established [facility] Blasts/100 WBC Manual cnt (Body fld) 0 % not established [facility] Cells Counted Total (Body fld) [#] [address] [facility] Eosinophils/100 WBC Manual cnt (Body fld) 0 % see comment [facility] Immature Granulocytes %, Manual, Fluid 0 % not established [facility] Interpretation and review of laboratory results Abnormal [facility] Lymphocytes/100 WBC Manual cnt (Body fld) 19 % see comment [facility] Monocytes+Macrophages/1 00 WBC Manual cnt (Body fld) 17 % see comment [facility] Neutrophils/100 WBC (Body fld) 40 % see comment [facility] Other cells/100 WBC Manual cnt (Body fld) 24 % High not established [facility] Comment on above: Mesothelial cells no tianna by tech Plasma cells/100 WBC Manual cnt (Body fld) 0 % not established [facility] Body Fluid cell differential reference ranges have not been established by [facility]. Reference ranges provided are based on published references. [facility] Basophils/100 WBC (Body fld) 0 % Normal not established [facility] Comment on above: Order Comment: Body Fluid cell differential reference ranges have not been established by [facility]. Reference ranges provided are based on published references. Performed By: #### 2 9580-8 #### MIREYA SHAH ([id number]) [facility] ([facility]) [address] [place] [address] Blasts/100 WBC Manual cnt (Body fld) 0 % Normal not established [facility] Comment on above: Order Comment: Body Fluid cell differential reference ranges have not been established by [facility]. Reference ranges provided are based on published references. Performed By: #### 2 9580-8 #### MIREYA SHAH ([id number]) [facility] ([facility]) [address] [place] [address] 39463 Cells Counted Total (Body fld) [#] 100 Normal [facility] Comment on above: Order Comment: Body Fluid cell differential reference ranges have not been established by [facility]. Reference ranges provided are based on published references. Performed By: #### 2 9580-8 #### MIREYA SHAH ([id number]) [facility] ([facility]) [address] [place] [address] 62008 Eosinophils/100 WBC Manual cnt (Body fld) 0 % Normal see comment [facility] Comment on above: Order Comment: Body Fluid cell differential reference ranges have not been established by [facility]. Reference ranges provided are based on published references. Performed By: #### 2 9580-8 #### MIREYA SHAH ([id number]) [facility] ([facility]) [address] [place] [address] 58077 IMMATURE GRANULOCYTES IN FLUID 0 % Normal not established [facility] Comment on above: Order Comment: Body Fluid cell differential reference ranges have not been established by [facility]. Reference ranges provided are based on published references. Performed By: #### 2 9580-8 #### MIREYA SHAH ([id number]) [facility] ([facility]) [address] [place] [address] Lymphocytes/100 WBC Manual cnt (Body fld) 19 % Normal see comment [facility] Comment on above: Order Comment: Body Fluid cell differential reference ranges have not been established by [facility]. Reference ranges provided are based on published references. Performed By: #### 2 9580-8 #### MIREYA SHAH ([id number]) [facility] ([facility]) [address] [place] [address] Monocytes+Macrophages/1 00 WBC Manual cnt (Body fld) 17 % Normal see comment [facility] Comment on above: Order Comment: Body Fluid cell differential reference ranges have not been established by [facility]. Reference ranges provided are based on published references. Performed By: #### 2 9580-8 #### MIREYA SHAH ([id number]) [facility] ([facility]) [address] [place] [address] 94249 Neutrophils/100 WBC (Body fld) 40 % Normal see comment [facility] Comment on above: Order Comment: Body Fluid cell differential reference ranges have not been established by [facility]. Reference ranges provided are based on published references. Performed By: #### 2 9580-8 #### MIREYA SHAH ([id number]) [facility] ([facility]) [address] [place] [address] 84967 Other cells/100 WBC Manual cnt (Body fld) 24 % High not established [facility] Comment on above: Order Comment: Body Fluid cell differential reference ranges have not been established by [facility]. Reference ranges provided are based on published references. Result Comment: Meso thelial cells noted by tech Performed By: #### 2 9580-8 #### MIREYA SHAH ([id number]) [facility] ([facility]) [facility] [place] [address] Plasma cells/100 WBC Manual cnt (Body fld) 0 % Normal not established [facility] Comment on above: Order Comment: Body Fluid cell differential reference ranges have not been established by [facility]. Reference ranges provided are based on published references. Performed By: #### 2 9580-8 #### MIREYA SHAH ([id number]) [facility] ([facility]) [address] [place] [address] Glucoseon 10-04-2024 Glucose (Body fld) [Mass/Vol] 200 mg/dL Normal Not established [facility] Comment on above: Order Comment: Venip uncture immediately after or during the administration of Metamizole may lead to falsely low results. Testing should be performed immediately prior to Metamizole dosing. Performed By: #### 2 524-7 #### MIREYA SHAH ([id number]) [facility] ([facility]) [address] [place] [address] Hepatic function 2000 panelo n 10-04-2024 Albumin BCP dye [Mass/Vol] 2.4 g/dL Low 3.4 - 5.0 g/dL [facility] ALP [Catalytic activity/Vol] 212 U/L High 33 - 120 U/L [facility] ALT With P-5'-P [Catalytic activity/Vol] 46 U/L 10 - 52 U/L [facility] Comment on above: Patients treated wit h Sulfasalazine may generate falsely decreased results for ALT. AST With P-5'-P [Catalytic activity/Vol] 49 U/L High 9 - 39 U/L [facility] [facility] Bil[facility] [Mass/Vol] 1.8 mg/dL High 0.0 - 1 .2 mg/dL [facility] Bilirubin.direct [Mass/Vol] 0.7 mg/dL High 0.0 - 0.3 mg/dL [facility] Protein [Mass/Vol] 5.7 g/dL Low 6.4 - 8.2 g/dL [facility] Albumin BCP dye [Mass/Vol] 2.4 g/dL Low 3.4-5.0 [facility] Comment on above: Performed By: #### 2 4325-3 #### MIREYA SHAH ([id number]) [facility] ([facility]) [address] [place] [address] ALP [Catalytic activity/Vol] 212 U/L High 33-120 [facility] Comment on above: Performed By: #### 2 4325-3 #### MIREYA SHAH ([id number]) [facility] ([facility]) [address] [place] [address] ALT With P-5'-P [Catalytic activity/Vol] 46 U/L Normal 10-52 [facility] Comment on above: Result Comment: Argenis ents treated with Sulfasalazine may generate falsely decreased results for ALT. Performed By: #### 2 4325-3 #### MIREYA SHAH ([id number]) [facility] ([facility]) [address] [place] [address] AST With P-5'-P [Catalytic activity/Vol] 49 U/L High 9-39 [facility] Comment on above: Performed By: #### 2 4325-3 #### MIREYA SHAH ([id number]) [facility] ([facility]) [address] [place] [address] Bilirubin [Mass/Vol] 1.8 mg/dL High 0.0-1.2 [facility] Comment on above: Performed By: #### 2 5-3 #### MIREYA SHAH ([id number]) [facility] ([facility]) [address] [place] [address] Bilirubin.direct [Mass/Vol] 0.7 mg/dL High 0.0-0.3 [facility] Comment on above: Performed By: #### 2 4325-3 #### MIREYA SHAH ([id number]) [facility] ([facility]) [address] [place] [address] Protein [Mass/Vol] 5.7 g/dL Low 6.4-8.2 [facility] Comment on above: Performed By: #### 2 4325-3 #### MIREYA SHAH ([id number]) [facility] ([facility]) [address] [place], [place] [id number] Lactateon 10-04-2024 Lactate [Moles/Vol] 2 mmol/L 0.4 - 2. 0 mmol/L [facility] Lactate [Moles/Vol] 2.0 mmol/L Normal 0.4-2.0 [facility] Comment on above: Order Comment: Venip uncture immediately after or during the administration of Metamizole may lead to falsely low results. Testing should be performed immediately prior to Metamizole dosing. Performed By: #### 2 524-7 #### MIREYA SHAH ([id number]) [facility] ([facility]) [address] [place] [address] Lactate [Moles/Vol]on 2024 Interpretation and review of laboratory results Normal [facility] Venipuncture immedia tely after or during the administration of Metamizole may lead to falsely low results. Testing should be performed immediately prior to Metamizole dosing. [facility] Lactate dehydrogenaseon LDH Lactate to pyruvate reaction (Body fld) [Catalytic activity/Vol] <25 Normal Not established. [facility] Comment on above: Order Comment: Venip uncture immediately after or during the administration of Metamizole may lead to falsely low results. Testing should be performed immediately prior to Metamizole dosing. Performed By: #### 2 524-7 #### MIREYA SHAH ([id number]) [facility] ([facility]) [address] [place] [address] Lipaseon 10-04-2024 Lipase [Catalytic activity/Vol] 56 U/L 9 - 82 U/L [facility] Lipase [Catalytic activity/V ol]on 10-04-2024 Interpretation and review of laboratory results Normal [facility] Venipuncture immedia tely after or during the administration of Metamizole may lead to falsely low results. Testing should be performed immediately prior to Metamizole dosing. [facility] No Panel Informationon 10-04 Interpretation and review of laboratory results Abnormal [facility] Interpretation and review of laboratory results Abnormal [facility] Non-purse seiner cytology studyon Non-gynecological cytology method study Pathology report.total SEE COMMENT Non-gynecologic Cytology Case: [id number] Authorizing Provider: Joey Huang DO Collected: 10/04/2024 3859 Ordering Location: [facility] Received: 10/05/2024 2139 [facility] Pathologist: Jarvis Guzman MD Specimen: ASCITIC FLUID Path report.final diagnosis SEE COMMENT A. ASCITIC FLUID: - NO MALIGNANT CELLS IDENTIFIED. Note: This case has been evaluated using a concentrated (ThinPrep) preparation. Laboratory comment SEE COMMENT Slide(s) initially screened by ABEL Castro at [address] [address] By the signature on this report, the [...] Block) A1-1 Pap Stain NGYN ThinPrep Normal [facility] PT Coag (PPP) [Time]on 10-04 INR Coag (PPP) [Relative time] 2.1 {INR} High 0.9 - 1.[address] [facility] INR Coag (PPP) [Relative time] 2.1 High 0.9-1.1 [facility] Comment on above: Performed By: #### 5 902-2 #### GOMES ALYSSA ([id number]) [facility] ([facility]) [address] [place] [address] Paracentesison 10-04-2024 Joey Huang DO 10/04/2024 5:18 PM Paracentesis Date/Time: 10/04/2024 5:17 PM Performed by: Joey Huang DO Authorized by: Joey Huang DO Consent: Consent obtained: Written Consent given by: Patient Risks, benefits, and alternatives were discussed: yes Risks discussed: Bleeding, bowel perforation and infection Alternatives discussed: No treatment [facility] protocol: Procedure explained and questions answered to [...] Post-procedure details: Procedure completion: Tolerated [facility] Work Phone: [facility] Work Phone: Proteinon 10-04-2024 Protein (Body fld) [Mass/Vol] g/dL Normal Not established [facility] Comment on above: Order Comment: Venip uncture immediately after or during the administration of Metamizole may lead to falsely low results. Testing should be performed immediately prior to Metamizole dosing. Performed By: #### 2 524-7 #### MIREYA SHAH ([id number]) [facility] ([facility]) [address] [place] [address] Protime-INRon 10-04-2024 PT Coag (PPP) [Time] 23.6 s [facility] Triacylglycerol lipaseon Lipase [Catalytic activity/Vol] 56 U/L Normal 9-82 [facility] Comment on above: Order Comment: Venip uncture immediately after or during the administration of Metamizole may lead to falsely low results. Testing should be performed immediately prior to Metamizole dosing. Performed By: #### 3 040-3 #### MIREYA SHAH ([id number]) [facility] ([facility]) [address] [place] [address] aPTT Coag (PPP) [Time]on The APTT is no longe r used for monitoring Unfractionated Heparin Therapy. For monitoring Heparin Therapy, use the Heparin Assay. [facility] pHon 10-04-2024 pH (Body fld) 7.82 Normal See Below [facility] Comment on above: Order Comment: Venip uncture immediately after or during the administration of Metamizole may lead to falsely low results. Testing should be performed immediately prior to Metamizole dosing. Performed By: #### 2 524-7 #### MIREYA SHAH ([id number]) [facility] ([facility]) [address] [place] [address] Glucose measurement at [facility] deOrdered By: Boone Izquierdo on 09-14-2024 Bedside Glucose (Misc Panel) 134 mg/dL High 74-106 [facility] Comment on above: MANAGEMENT OF PATIEN T CARE PER NURSING PROTOCOL Glucose [Mass/Vol] 134 mg/dL High 74-106 [facility] Glucose measurement at bedside 134 mg/dL High 74-106 [facility] Blood urea nitrogen (BUN)/cr eatinine ratioOrdered By: Jae Ash on 09-12-2024 Urea nitrogen/Creatinine [Mass ratio] 7.6 mg/mg Low 10-20 [facility] Blood urea nitrogen (BUN)/creatinine ratio 7.6 RATIO Low 10-20 [facility] Calcium [Mass/Vol]Ordered By : Jae Ash on 09-12-2024 Serum or plasma calcium measurement (mass/volume) 8.1 mg/dL Low 8.5-10.1 [facility] Carbon dioxide measurementOr dered By: Jae Ash on 09-12-2024 CO2 [Moles/Vol] 20.0 mmol/L Low 21.0-32.0 [facility] Carbon dioxide measurement 20.0 mmol/L Low 21.0-32.0 [facility] Chloride measurementOrdered By: Jae Ash on 09-12-2024 Chloride [Moles/Vol] 109 mmol/L High 98-107 [facility] Chloride measurement 109 mmol/L High 98-107 [facility] Creatinine [Mass/Vol]Ordered By: Jae Ash on 09-12-2024 Serum or plasma creatinine measurement (mass/volume) 0.92 mg/dL 0.70-1.30 [facility] Erythrocyte distribution wid th (RBC) [Ratio]Ordered By: Jae Ash on 09-12-2024 Erythrocyte distribution width ratio 19.7 % High 11.6-14.6 [facility] Erythrocyte distribution width standard deviation 63.5 fl High 35.1-43.9 [facility] Erythrocyte distribution wid th ratioOrdered By: Jae Ash on 09-12-2024 Erythrocyte distribution width (RBC) [Ratio] 19.7 % High 11.6-14.6 [facility] Erythrocyte distribution wid th standard deviationOrdered By: Jae Ash on 09-12-2024 Erythrocyte distribution width (RBC) [Entitic vol] 63.5 fL High 35.1-43.9 [facility] Erythrocyte distribution width (RBC) [Ratio] 63.5 fl High 35.1-43.9 [facility] Estimated glomerular filtrat ion rate (GFR) AmericanOrdered By: Jae Ash on 09-12-2024 Estimated GFR (MDRD) Amer 108 mL/min >60 [facility] Comment on above: GFR Calc Estimated glomerular filtration rate (GFR) 108 mL/min >60 [facility] Estimation of creatinine obed aranceOrdered By: Jae Ash on 09-12-2024 Estimated Creatinine Clearance Calc 71.80 ml/min [facility] Estimation of creatinine clearance 71.80 ml/min [facility] Glomerular filtration rate ( GFR) estimationOrdered By: Jae Ash on 09-12-2024 Estimated GFR (MDRD) Non-Af Amer 89 mL/min >60 [facility] Comment on above: Non- GFR Calc GFR/1.73 sq M.predicted among non-blacks MDRD (S/P/Bld) [Vol rate/Area] 89 mL/min/{1.73_m2} >60 [facility] Glomerular filtration rate (GFR) estimation 89 mL/min >60 [facility] Glucose measurementOrdered B y: Jae Ash on 09-12-2024 Glucose [Mass/Vol] 149 mg/dL High 74-106 [facility] Comment on above: Fasting Glucose resu lt greater than or equal to 126 mg/dL suggests DIABETES MELLITUS per A.D.A. criteria. Glucose measurement 149 mg/dL High 74-106 [facility] Hematocrit Auto (Bld) [Volum e fraction]Ordered By: Jae Ash on 09-12-2024 Hematocrit (Bld) [Volume fraction] 25.8 % Low 40-54 [facility] Automated blood hematocrit (percentage) 25.8 % Low 40-54 [facility] Hemoglobin measurementOrdere d By: Jae Ash on 09-12-2024 Hemoglobin (Bld) [Mass/Vol] 8.1 g/dL Low 13.0-16.5 [facility] Hemoglobin measurement 8.1 g/dL Low 13.0-16.5 [facility] MCV (RBC) [Entitic vol]Order ed By: Jae Ash on 09-12-2024 MCV (mean corpuscular volume) determination 90.5 fL 80-94 [facility] MCV (mean corpuscular volume ) determinationOrdered By: Jae Ash on 09-12-2024 MCV (RBC) [Entitic vol] 90.5 fL 80-94 [facility] Mean corpuscular hemoglobin (MCH) determinationOrdered By: aJe Ash on 09-12-2024 MCH (RBC) [Entitic mass] 28.4 pg 27.0-32.0 [facility] Mean corpuscular hemoglobin (MCH) determination 28.4 pg 27.0-32.0 [facility] Mean corpuscular hemoglobin concentration (MCHC) determinationOrdered By: Jae Ash on 09-12-2024 MCHC (RBC) [Mass/Vol] 31.4 g/dL Low 32-36 [facility] Comment on above: Delta: 33.1 on 09/10 Mean corpuscular hemoglobin concentration (MCHC) determination 31.4 g/dL Low 32-36 [facility] Mean platelet volume determi nationOrdered By: Jae Ash on 09-12-2024 Platelet mean volume (Bld) [Entitic vol] 11.9 fL 6.2-12.0 [facility] Mean platelet volume determination 11.9 fl 6.2-12.0 [facility] Platelet countOrdered By: Monico Ash on 09-12-2024 Platelets (Bld) [#/Vol] 115 10*3/uL Low 150-450 [facility] Platelet count 115 K/mm3 Low 150-450 [facility] Potassium measurementOrdered By: Jae Ash on 09-12-2024 Potassium [Moles/Vol] 3.4 mmol/L Low 3.5-5.1 [facility] Potassium measurement 3.4 mmol/L Low 3.5-5.1 [facility] RBC Auto (Bld) [#/Vol]Ordere d By: Jae Ash on 09-12-2024 RBC (Bld) [#/Vol] 2.85 10*6/uL Low 4.6-6.2 [facility] Automated blood erythrocyte count 2.85 M/mm3 Low 4.6-6.2 [facility] Serum anion gap measurementO rdered By: Jae Ash on 09-12-2024 Anion gap [Moles/Vol] 7 mmol/L 5-15 [facility] Serum anion gap measurement 7 5-15 [facility] Serum or plasma calcium roosevelt urement (mass/volume)Ordered By: Jae Ash on 09-12-2024 Calcium [Mass/Vol] 8.1 mg/dL Low 8.5-10.1 [facility] Serum or plasma creatinine m easurement (mass/volume)Ordered By: Jae Ash on 09-12-2024 Creatinine [Mass/Vol] 0.92 mg/dL 0.70-1.30 [facility] Comment on above: The validity of the calculated GFR & GFRAA in patients over 70 years has not been determined. Clinical correlation is essential. Serum or plasma urea nitroge n measurement (mass/volume)Ordered By: Jae Ash on 09-12-2024 Urea nitrogen [Mass/Vol] 7 mg/dL 02-18 [facility] Sodium levelOrdered By: Pasha Ash on 09-12-2024 Sodium [Moles/Vol] 136 mmol/L 136-145 [facility] Sodium level 136 mmol/L 136-145 [facility] Urea nitrogen [Mass/Vol]Orde red By: Jae Ash on 09-12-2024 Serum or plasma urea nitrogen measurement (mass/volume) 7 mg/dL 02-18 [facility] White blood cell (WBC) count Ordered By: Jae Ash on 09-12-2024 WBC (Bld) [#/Vol] 7.4 10*3/uL 4.4-11.0 [facility] White blood cell (WBC) count 7.4 K/mm3 4.4-11.0 [facility] Serum or plasma trough vanco mycin levelOrdered By: Thai Thurston on 09-10-2024 Vancomycin trough [Mass/Vol] 15.7 ug/mL High 5.0-15.0 [facility] Vancomycin trough [Mass/Vol] Ordered By: Thai Thurston on 09-10-2024 Vancomycin Level Trough 15.7 ug/mL High 5.0-15.0 [facility] Comment on above: VANCOMYCIN STANDARED DRUG THERAPY TROUGH LEVEL: 5.0 - 15.0 mg/L VANCOMYCIN HIGH INTENSITY THERAPY TROUGH LEVEL: 15.0 - 20.0 mg/L High Intensity therapy recommended for serious lifethreatening infections include:- Iixvnbidpy-Qhikywllphpy-Tplwjqbok (Ventilator/Healtcare Associated)-Sepsis PLEASE CONTACT PHARMACY SERVICES (#[id number]) FOR INTERPRETATIONOF RESULTS. Serum or plasma trough vancomycin level 15.7 ug/mL High 5.0-15.0 [facility] Serum or plasma vancomycin l evel (mass/volume)Ordered By: Maria Guadalupe Shore on 09-08-2024 Vancomycin [Mass/Vol] 16.5 ug/mL High 0.0-15.0 [facility] Vancomycin [Mass/Vol]Ordered By: Maria Guadalupe Shore on 09-08-2024 Random Vancomycin Level 16.5 ug/mL High 0.0-15.0 [facility] Comment on above: VANCOMYCIN STANDARD DRUG THERAPY: CRITICAL VALUE IS > 15.0 mg/L VANCOMYCIN HIGH INTENSITY THERAPY: CRITICAL VALUE IS > 20.0 mg/L PLEASE CONTACT PHARMACY SERVICES (#[id number]) FOR INTERPRETATIONOF RESULTS. THIS RESULT DOES NOT REPRESENT A PEAK OR TROUGHLEVEL FOR THIS DRUG. Serum or plasma vancomycin level (mass/volume) 16.5 ug/mL High 0.0-15.0 [facility] Absolute lymphocyte countOrd ered By: Anurag Irene on 09-07-2024 Lymphocytes Auto (Unsp spec) [#/Vol] 0.95 10*3/uL 0.83-4.51 [facility] Absolute neutrophil countOrd ered By: Anurag Irene on 09-07-2024 Neutrophils (Bld) [#/Vol] 13.3 10*3/uL High 2.0-7.7 [facility] Absolute neutrophil count 13.3 X10^3/uL High 2.0-7.7 [facility] Automated lymphocyte count a s percentage of total leukocytesOrdered By: Anurag Irene on 09-07-2024 Lymphocytes/100 WBC Auto (Unsp spec) 5.8 % Low 19-41 [facility] Basophil percentageOrdered B y: Anurag Irene on 09-07-2024 Basophils/100 WBC (Bld) 0.4 % 0-1 [facility] Basophil percentage 0.4 % 0-1 [facility] Eosinophil percentageOrdered By: Anurag Irene on 09-07-2024 Eosinophils/100 WBC (Bld) 3.0 % 0-5 [facility] Eosinophil percentage 3.0 % 0-5 [facility] Immature granulocytes/100 WB C Auto (Bld)Ordered By: Anurag Irene on 09-07-2024 Immature granulocytes/100 WBC (Bld) 1.400 % High 0.0-0.9 [facility] Comment on above: IG% - Immature Granu locytes (promyelocytes, myelocytes and metamyelocytes) > 1% indicates that a LEFT SHIFT is Present. Automated immature granulocyte percentage 1.400 % High 0.0-0.9 [facility] Lymphocytes Auto (Unsp spec) [#/Vol]Ordered By: Anurag Irene on 09-07-2024 Lymphocytes (Bld) [#/Vol] 0.95 10*3/uL 0.83-4.51 [facility] Absolute lymphocyte count 0.95 X10^3/uL 0.83-4.51 [facility] Lymphocytes/100 WBC Auto (Un sp spec)Ordered By: Anurag Irene on 09-07-2024 Lymphocytes/100 WBC (Bld) 5.8 % Low 19-41 [facility] Automated lymphocyte count as percentage of total leukocytes 5.8 % Low 19-41 [facility] Monocyte percentageOrdered B y: Anurag Irene on 09-07-2024 Monocytes/100 WBC (Bld) 8.6 % 0-10 [facility] Monocyte percentage 8.6 % 0-10 [facility] Neutrophil percentageOrdered By: Anurag Irene on 09-07-2024 Neutrophils/100 WBC (Bld) 80.8 % High 47-70 [facility] Neutrophil percentage 80.8 % High 47-70 [facility] Nucleated red blood cell per centageOrdered By: Anurag Irene on 09-07-2024 Nucleated RBC/100 WBC (Bld) [Ratio] 0 % 0-5 [facility] Nucleated red blood cell percentage 0 % 0-5 [facility] Blood cultureOrdered By: [place] Irene on 09-06-2024 Bacteria identified Cx Nom (Bld) No growth in 5 days. [facility] Blood culture No growth in 5 days. [facility] Blood cultureOrdered By: Shi Joiner on 09-05-2024 Bacteria identified Cx Nom (Bld) Staphylococcus epidermidis Abnormal [facility] Blood culture Staphylococcus epidermidis Abnormal [facility] Folic acid measurementOrdere d By: Hill Wright on 09-05-2024 Folate 30.10 ng/mL 3.1-55.4 [facility] Folic acid measurement 30.10 ng/mL 3.1-55.4 [facility] Lactic acid measurementOrder ed By: Hill Wright on 09-05-2024 Lactate [Moles/Vol] 2.3 mmol/L High 0.4-2.0 [facility] Comment on above: Critical Result(s) C alled at: 08:26:40 09/05/2024 by: Lucy Haque to [facility]. Results read back by same. Lactic acid measurement 2.3 mmol/L High 0.4-2.0 [facility] Serum ethanol measurementOrd ered By: Hill Wright on 09-05-2024 Ethyl Alcohol Level 4.0 mg/dL [facility] Comment on above: The serum:whole bloo d ethanol ratio is approximately 1.14and varies slightly with hematocrit. Medical Alcohol reference interval and critical value innon-tolerant individuals; 50 - 100 Impairment 100 Intoxication 100 - 250 Severe Poisoning 250 - 400 Deep/possible fatal coma Serum ethanol measurement 4.0 mg/dL [facility] Vitamin B12 measurementOrder ed By: Hill Wright on 09-05-2024 Vitamin B12 Level > 2000 pg/mL High 211-911 [facility] Vitamin B12 measurement > 2000 pg/mL High 211-911 [facility] ALP [Catalytic activity/Vol] Ordered By: Rachel Joiner on 09-04-2024 Serum or plasma alkaline phosphatase measurement 269 U/L High 45-117 [facility] ALT [Catalytic activity/Vol] Ordered By: Rachel Joiner on 09-04-2024 Serum or plasma alanine aminotransferase (ALT) measurement 79 U/L High 16-61 [facility] Albumin [Mass/Vol]Ordered By : Rachel Joiner on 09-04-2024 Serum or plasma albumin measurement (mass/volume) 2.0 g/dL Low 3.2-5.0 [facility] Bilirubin Test strip Ql (U)O rdered By: Rachel Joiner on 09-04-2024 Bilirubin Ql (U) 1 mg/dL High Negative [facility] Comment on above: COLOR OF URINE MAY A FFECT DIPSTICK RESULTS. Bilirubin directOrdered By: Rachel Joiner on 09-04-2024 Bilirubin.direct [Mass/Vol] 1.80 mg/dL High 0.00-0.30 [facility] Bilirubin, totalOrdered By: Rachel Joiner on 09-04-2024 Bilirubin [Mass/Vol] 3.10 mg/dL High 0.20-1.00 [facility] Comment on above: For patients on eltr ombopag therapy, use of Dimension [place] TBIL is not recommended. Bilirubin, total 3.10 mg/dL High 0.20-1.00 [facility] Bilirubin.direct [Mass/Vol]O rdered By: Rachel Joiner on 09-04-2024 Bilirubin direct 1.80 mg/dL High 0.00-0.30 [facility] Blood cultureOrdered By: Shi Joiner on 09-04-2024 Bacteria identified Cx Nom (Bld) [facility] Clarity (U)Ordered By: Kaz Joiner on 09-04-2024 Urine clarity Clear Clear [facility] Color (U)Ordered By: Rachel Joiner on 09-04-2024 Urine color determination Yellow Yellow [facility] Epithelial cells.squamous LM Ql (Urine sed)Ordered By: Rachel Joiner on 09-04-2024 Epithelial cells.squamous LM.HPF (Urine sed) [#/Area] 0 /[HPF] 0-5 [facility] Glucose Ql (U)Ordered By: Brendan Joiner on 09-04-2024 Urine Glucose (UA) Normal mg/dl Normal [facility] Urine glucose detection Normal mg/dl Normal [facility] HbA1c (Bld) [Mass fraction]O rdered By: Hill Wright on 09-04-2024 Hemoglobin A1c percentage 7.3 % High 3.8-5.6 [facility] Hemoglobin A1c percentageOrd ered By: Hill Wright on 09-04-2024 HbA1c (Bld) [Mass fraction] 7.3 % High 3.8-5.6 [facility] Comment on above: Normal < 5.7 % Predi abetic 5.7 - 6.4 % Diabetic >or= 6.5 % Please note range changes. Ketones Test strip Ql (U)Ord ered By: Rachel Joiner on 09-04-2024 Ketones Ql (U) Negative Negative [facility] Laboratory - Chemistry and C hemistry - challengeOrdered By: Rachel Joiner on 09-04-2024 AST [Catalytic activity/Vol] 156 U/L High 15-37 [facility] Leukocyte esterase Test stri p Ql (U)Ordered By: Rachel Joiner on 09-04-2024 Urine leukocyte esterase detection by dipstick 100 /ul High Negative [facility] Methadone, urineOrdered By: Rachel Joiner on 09-04-2024 Urine Methadone Screen Negative < 300 ng/mL [facility] Microorganism identified Cx Nom (Unsp spec)Ordered By: Rachel Joiner on 09-04-2024 Bacteria Detection (PCR) Staphylococcus epidermidis Abnormal [facility] Bacteria Detection (PCR) mecA Resistance Marker Abnormal [facility] Organism identification mecA Resistance Marker Abnormal [facility] Microscopic analysis of urin e for red blood cells (RBC)Ordered By: Rachel Joiner on 09-04-2024 Urine RBC 10-25 SEEN /hpf 0-5 [facility] Microscopic analysis of urine for red blood cells (RBC) 10-25 SEEN /hpf 0-5 [facility] Mucus LM Ql (Urine sed)Order ed By: Rachel Joiner on 09-04-2024 Mucus Ql (Urine sed) 0 SEEN /hpf [facility] Nitrite Test strip Ql (U)Ord ered By: Rachel Joiner on 09-04-2024 Nitrite Ql (U) Negative Negative [facility] No Panel InformationOrdered By: Rachel Joiner on 09-04-2024 156 U/L High 15-37 [facility] Urine Drug Screen Comment [facility] Comment on above: CONFIRMATORY TESTING FOR [...] MUST BE ORDERED SEPARATELY. USE TESTMNEMONIC: [facility] Organism identificationOrder ed By: Rachel Joiner on 09-04-2024 Microorganism identified Cx Nom (Unsp spec) Staphylococcus epidermidis Abnormal [facility] Microorganism identified Cx Nom (Unsp spec) mecA Resistance Marker Abnormal [facility] Protein Test strip Ql (U)Ord ered By: Rachel Joiner on 09-04-2024 Protein Ql (U) 30 mg/dl High Negative [facility] Urine protein assay by test strip, semi-quantitative 30 mg/dl High Negative [facility] Quantitative urine opiates m easurementOrdered By: Rachel Joiner on 09-04-2024 Opiates Ql (U) Positive High < 300 ng/mL [facility] Quantitative urine opiates measurement Positive High < 300 ng/mL [facility] Screening prostate specific antigen (PSA) measurementOrdered By: Hill Wright on 09-04-2024 Prostate Specific Antigen Screen 1.41 ng/mL 0.00-4.00 [facility] Comment on above: This test was perfor med using the TPSA assay method [facility]. Values obtained with differentassay methods cannot be used interchangably.When changing PSA assays in the course of monitoring apatient, additional sequential testing should be carriedout to confirm baseline values. Screening prostate specific antigen (PSA) measurement 1.41 ng/mL 0.00-4.00 [facility] Serum globulin measurementOr dered By: Rachel Joiner on 09-04-2024 Globulin (S) [Mass/Vol] 4.1 g/dL 2.2-4.2 [facility] Serum globulin measurement 4.1 g/dL 2.2-4.2 [facility] Serum or plasma alanine thomas otransferase (ALT) measurementOrdered By: Rachel Joiner on 09-04-2024 ALT [Catalytic activity/Vol] 79 U/L High 16-61 [facility] Serum or plasma albumin roosevelt urement (mass/volume)Ordered By: Rachel Joiner on 09-04-2024 Albumin [Mass/Vol] 2.0 g/dL Low 3.2-5.0 [facility] Serum or plasma alkaline kendrick sphatase measurementOrdered By: Rachel Joiner on 09-04-2024 ALP [Catalytic activity/Vol] 269 U/L High 45-117 [facility] Serum or plasma thyroid stim ulating hormone (TSH) measurement (units/volume)Ordered By: Hill Wright on 09-04-2024 TSH Qn 0.826 uIU/mL 0.358-3.740 [facility] Specific gravity (U) [Rel de nsity]Ordered By: Rachel Joiner on 09-04-2024 Urine specific gravity measurement 1.020 1.002-1.030 [facility] Squamous epithelial cells de tection in urine sediment by light microscopyOrdered By: Rachel Joiner on 09-04-2024 Epithelial cells.squamous LM Ql (Urine sed) 0 SEEN /hpf 0-5 [facility] Squamous epithelial cells detection in urine sediment by light microscopy 0 SEEN /hpf [facility] TSH QnOrdered By: Hill patino on 09-04-2024 Thyroid Stimulating Hormone (TSH) 0.826 uIU/mL 0.358-3.740 [facility] Serum or plasma thyroid stimulating hormone (TSH) measurement (units/volume) 0.826 uIU/mL 0.358-3.740 [facility] Total proteinOrdered By: Shi Joiner on 09-04-2024 Protein [Mass/Vol] 6.1 g/dL Low 6.4-8.2 [facility] Total protein 6.1 g/dL Low 6.4-8.2 [facility] Urine amphetamine measuremen tOrdered By: Racehl Joiner on 09-04-2024 Amphetamines Ql (U) Negative <1000 ng/mL [facility] Urine barbiturates measureme ntOrdered By: Rachel Joiner on 09-04-2024 Urine Barbiturates Screen Negative < 200 ng/mL [facility] Urine benzodiazepine levelOr dered By: Rachel Joiner on 09-04-2024 Benzodiazepines Ql (U) Negative < 200 ng/mL [facility] Urine blood detectionOrdered By: Rachel Joiner on 09-04-2024 Urine Occult Blood 150 /ul High Negative [facility] Urine blood detection 150 /ul High Negative [facility] Urine clarityOrdered By: Shi Joiner on 09-04-2024 Clarity (U) Clear Clear [facility] Urine cocaine levelOrdered B y: Rachel Joiner on 09-04-2024 Cocaine Ql (U) Negative < 300 ng/mL [facility] Urine color determinationOrd ered By: Rachel Joiner on 09-04-2024 Color (U) Yellow Yellow [facility] Urine cultureOrdered By: Hugo Wright on 09-04-2024 Bacteria identified Cx Nom (U) Staphylococcus epidermidis Abnormal [facility] Urine culture Staphylococcus epidermidis Abnormal [facility] Urine [id number] abinol (THC) measurementOrdered By: Rachel Joiner on 09-04-2024 Cannabinoids Screen Ql (U) Negative < 50 ng/mL [facility] Urine glucose detectionOrder ed By: Rachel Joiner on 09-04-2024 Glucose Ql (U) Normal mg/dl Normal [facility] Urine ketones detection by t est stripOrdered By: Rachel Joiner on 09-04-2024 Urine ketones detection by test strip Negative < 50 ng/mL [facility] Urine leukocyte esterase det ection by dipstickOrdered By: Rachel Joiner on 09-04-2024 Leukocyte esterase Test strip Ql (U) 100 /ul High Negative [facility] Urine methylenedioxymethamph etamine (MDMA) measurementOrdered By: Rachel Joiner on 09-04-2024 MDMA (Ecstasy) Screen Negative < 500 ng/mL [facility] Urine pHOrdered By: Rachel silva on 09-04-2024 pH (U) 6.0 [pH] 5.0 - 8.0 [facility] Urine phencyclidine (PCP) de tectionOrdered By: Rachel Joiner on 09-04-2024 Phencyclidine Ql (U) Negative < 25 ng/mL [facility] Urine sediment bacteria coun t by microscopy (number/high power field)Ordered By: Rachel Joiner on 09-04-2024 Bacteria LM.HPF (Urine sed) [#/Area] 0 /[HPF] None Seen [facility] Urine specific gravity measu rementOrdered By: Rachel Joiner on 09-04-2024 Specific gravity (U) [Rel density] 1.020 1.002-1.030 [facility] Urine total bilirubin detect ion by test stripOrdered By: Rachel Joiner on 09-04-2024 Urine total bilirubin detection by test strip 1 mg/dL High Normal [facility] Urine urobilinogen measureme ntOrdered By: Rachel Joiner on 09-04-2024 Urobilinogen Ql (U) 1 mg/dl High Normal [facility] Urobilinogen Ql (U)Ordered B y: Rachel Joiner on 09-04-2024 Urobilinogen (U) [Mass/Vol] 1 mg/dL High Normal [facility] Venous blood ammonia measure mentOrdered By: Rachel Joiner on 09-04-2024 Ammonia (P) [Moles/Vol] 26.0 umol/L [facility] Venous blood ammonia measurement 26.0 umol/L [facility] White blood cell countOrdere d By: Rachel Joienr on 09-04-2024 Urine WBC 5-10 SEEN /hpf 0-5 [facility] Comment on above: Previous reported re sult: 0 SEEN /hpfEdited by: DANIEL on 09/04/24:2337 AMENDED REPORT 09/04/24 2337 WBC previously reported as: 0 SEEN /hpf White blood cell count 5-10 SEEN /hpf 0-5 [facility] White blood cell count 5-10 SEEN /hpf 0-5 [facility] pH (U)Ordered By: Rachel lambert on 09-04-2024 Urine pH 6.0 5.0 - 8.0 [facility] Absolute lymphocyte countOrd ered By: Bola Meraz on 09-02-2024 Lymphocytes Auto (Unsp spec) [#/Vol] 1.04 10*3/uL 0.83-4.51 [facility] Absolute neutrophil countOrd ered By: Bola Meraz on 09-02-2024 Neutrophils (Bld) [#/Vol] 14.0 10*3/uL High 2.0-7.7 [facility] Absolute neutrophil count 14.0 X10^3/uL High 2.0-7.7 [facility] Automated lymphocyte count a s percentage of total leukocytesOrdered By: Bola Meraz on 09-02-2024 Lymphocytes/100 WBC Auto (Unsp spec) 6.3 % Low 19-41 [facility] Basophil percentageOrdered B y: Bola Meraz on 09-02-2024 Basophils/100 WBC (Bld) 0.4 % 0-1 [facility] Basophil percentage 0.4 % 0-1 [facility] Blood urea nitrogen (BUN)/cr eatinine ratioOrdered By: Bola Meraz on 09-02-2024 Urea nitrogen/Creatinine [Mass ratio] 16.9 mg/mg 10-20 [facility] Blood urea nitrogen (BUN)/creatinine ratio 16.9 RATIO 10-20 [facility] Calcium [Mass/Vol]Ordered By : Bola Meraz on 09-02-2024 Serum or plasma calcium measurement (mass/volume) 8.9 mg/dL 8.5-10.1 [facility] Carbon dioxide measurementOr dered By: Bola Meraz on 09-02-2024 CO2 [Moles/Vol] 19.0 mmol/L Low 21.0-32.0 [facility] Carbon dioxide measurement 19.0 mmol/L Low 21.0-32.0 [facility] Chloride measurementOrdered By: Bola Meraz on 09-02-2024 Chloride [Moles/Vol] 107 mmol/L 98-107 [facility] Chloride measurement 107 mmol/L 98-107 [facility] Creatinine [Mass/Vol]Ordered By: Bola Meraz on 09-02-2024 Serum or plasma creatinine measurement (mass/volume) 2.54 mg/dL High 0.70-1.30 [facility] Eosinophil percentageOrdered By: Bola Meraz on 09-02-2024 Eosinophils/100 WBC (Bld) 1.3 % 0-5 [facility] Eosinophil percentage 1.3 % 0-5 [facility] Erythrocyte distribution wid th (RBC) [Ratio]Ordered By: Bola Meraz on 09-02-2024 Erythrocyte distribution width ratio 15.7 % High 11.6-14.6 [facility] Erythrocyte distribution width standard deviation 47.0 fl High 35.1-43.9 [facility] Erythrocyte distribution wid th ratioOrdered By: Bola Meraz on 09-02-2024 Erythrocyte distribution width (RBC) [Ratio] 15.7 % High 11.6-14.6 [facility] Erythrocyte distribution wid th standard deviationOrdered By: Bola Meraz on 09-02-2024 Erythrocyte distribution width (RBC) [Entitic vol] 47.0 fL High 35.1-43.9 [facility] Erythrocyte distribution width (RBC) [Ratio] 47.0 fl High 35.1-43.9 [facility] Estimated glomerular filtrat ion rate (GFR) AmericanOrdered By: Bola Meraz on 09-02-2024 Estimated GFR (MDRD) Amer 34 mL/min Low >60 [facility] Comment on above: GFR Calc Estimated glomerular filtration rate (GFR) 34 mL/min Low >60 [facility] Estimation of creatinine obed aranceOrdered By: Bola Meraz on 09-02-2024 Estimated Creatinine Clearance Calc 37.67 ml/min [facility] Estimation of creatinine clearance 37.67 ml/min [facility] Glomerular filtration rate ( GFR) estimationOrdered By: Bola Meraz on 09-02-2024 Estimated GFR (MDRD) Non-Af Amer 28 mL/min Low >60 [facility] Comment on above: Non- GFR Calc GFR/1.73 sq M.predicted among non-blacks MDRD (S/P/Bld) [Vol rate/Area] 28 mL/min/{1.73_m2} Low >60 [facility] Glomerular filtration rate (GFR) estimation 28 mL/min Low >60 [facility] Glucose measurementOrdered B y: Bola Meraz on 09-02-2024 Glucose [Mass/Vol] 187 mg/dL High 74-106 [facility] Comment on above: Fasting Glucose resu lt greater than or equal to 126 mg/dL suggests DIABETES MELLITUS per A.D.A. criteria. Glucose measurement 187 mg/dL High 74-106 [facility] Glucose measurement at bedsi deOrdered By: Rick Carlin on 09-02-2024 Bedside Glucose (Misc Panel) 168 mg/dL High 74-106 [facility] Comment on above: MANAGEMENT OF PATIEN T CARE PER NURSING PROTOCOL Glucose [Mass/Vol] 168 mg/dL High 74-106 [facility] Glucose measurement at bedside 168 mg/dL High 74-106 [facility] Hematocrit Auto (Bld) [Volum e fraction]Ordered By: Bola Meraz on 09-02-2024 Hematocrit (Bld) [Volume fraction] 30.8 % Low 40-54 [facility] Automated blood hematocrit (percentage) 30.8 % Low 40-54 [facility] Hemoglobin measurementOrdere d By: Bola Meraz on 09-02-2024 Hemoglobin (Bld) [Mass/Vol] 10.7 g/dL Low 13.0-16.5 [facility] Hemoglobin measurement 10.7 g/dL Low 13.0-16.5 [facility] Immature granulocytes/100 WB C Auto (Bld)Ordered By: Bola Meraz on 09-02-2024 Immature granulocytes/100 WBC (Bld) 1.300 % High 0.0-0.9 [facility] Comment on above: IG% - Immature Granu locytes (promyelocytes, myelocytes and metamyelocytes) > 1% indicates that a LEFT SHIFT is Present. Automated immature granulocyte percentage 1.300 % High 0.0-0.9 [facility] Lymphocytes Auto (Unsp spec) [#/Vol]Ordered By: Bola Meraz on 09-02-2024 Lymphocytes (Bld) [#/Vol] 1.04 10*3/uL 0.83-4.51 [facility] Absolute lymphocyte count 1.04 X10^3/uL 0.83-4.51 [facility] Lymphocytes/100 WBC Auto (Un sp spec)Ordered By: Bola Meraz on 09-02-2024 Lymphocytes/100 WBC (Bld) 6.3 % Low 19-41 [facility] Automated lymphocyte count as percentage of total leukocytes 6.3 % Low -41 [facility] MCV (RBC) [Entitic vol]Order ed By: Bola Meraz on 09-02-2024 MCV (mean corpuscular volume) determination 83.7 fL 80-94 [facility] MCV (mean corpuscular volume ) determinationOrdered By: Bola Meraz on 09-02-2024 MCV (RBC) [Entitic vol] 83.7 fL 80-94 [facility] Mean corpuscular hemoglobin (MCH) determinationOrdered By: Bola Meraz on 09-02-2024 MCH (RBC) [Entitic mass] 29.1 pg 27.0-32.0 [facility] Mean corpuscular hemoglobin (MCH) determination 29.1 pg 27.0-32.0 [facility] Mean corpuscular hemoglobin concentration (MCHC) determinationOrdered By: Bola Meraz on 09-02-2024 MCHC (RBC) [Mass/Vol] 34.7 g/dL 32-36 [facility] Mean corpuscular hemoglobin concentration (MCHC) determination 34.7 g/dL -36 [facility] Mean platelet volume determi nationOrdered By: Bola Meraz on 09-02-2024 Platelet mean volume (Bld) [Entitic vol] 12.8 fL High 6.2-12.0 [facility] Mean platelet volume determination 12.8 fl High 6.2-12.0 [facility] Monocyte percentageOrdered B y: Bola Meraz on 09-02-2024 Monocytes/100 WBC (Bld) 6.0 % 0-10 [facility] Monocyte percentage 6.0 % 0-10 [facility] Neutrophil percentageOrdered By: Bola Meraz on 09-02-2024 Neutrophils/100 WBC (Bld) 84.7 % High 47-70 [facility] Neutrophil percentage 84.7 % High 47-70 [facility] Nucleated red blood cell per centageOrdered By: Bola Meraz on 09-02-2024 Nucleated RBC/100 WBC (Bld) [Ratio] 0 % 0-5 [facility] Nucleated red blood cell percentage 0 % 0-5 [facility] Platelet countOrdered By: Oliver on 09-02-2024 Platelets (Bld) [#/Vol] 82 10*3/uL Low 150-450 [facility] Platelet count 82 K/mm3 Low 150-450 [facility] Potassium measurementOrdered By: Bola Meraz on 09-02-2024 Potassium [Moles/Vol] 4.0 mmol/L 3.5-5.1 [facility] Potassium measurement 4.0 mmol/L 3.5-5.1 [facility] RBC Auto (Bld) [#/Vol]Ordere d By: Bola Meraz on 09-02-2024 RBC (Bld) [#/Vol] 3.68 10*6/uL Low 4.6-6.2 [facility] Automated blood erythrocyte count 3.68 M/mm3 Low 4.6-6.2 [facility] Serum anion gap measurementO rdered By: Bola Meraz on 09-02-2024 Anion gap [Moles/Vol] 8 mmol/L 5-15 [facility] Serum anion gap measurement 8 5-15 [facility] Serum or plasma calcium roosevelt urement (mass/volume)Ordered By: Bola Meraz on 09-02-2024 Calcium [Mass/Vol] 8.9 mg/dL 8.5-10.1 [facility] Serum or plasma creatinine m easurement (mass/volume)Ordered By: Bola Meraz on 09-02-2024 Creatinine [Mass/Vol] 2.54 mg/dL High 0.70-1.30 [facility] Comment on above: The validity of the calculated GFR & GFRAA in patients over 70 years has not been determined. Clinical correlation is essential. Serum or plasma urea nitroge n measurement (mass/volume)Ordered By: Bola Meraz on 09-02-2024 Urea nitrogen [Mass/Vol] 43 mg/dL High 7-18 [facility] Sodium levelOrdered By: Deanna Meraz on 09-02-2024 Sodium [Moles/Vol] 133 mmol/L Low 136-145 [facility] Sodium level 133 mmol/L Low 136-145 [facility] Urea nitrogen [Mass/Vol]Orde red By: Bola Meraz on 09-02-2024 Serum or plasma urea nitrogen measurement (mass/volume) 43 mg/dL High 7-18 [facility] White blood cell (WBC) count Ordered By: Bola Meraz on 09-02-2024 WBC (Bld) [#/Vol] 16.5 10*3/uL High 4.4-11.0 [facility] White blood cell (WBC) count 16.5 K/mm3 High 4.4-11.0 [facility] ALP [Catalytic activity/Vol] Ordered By: Maria Guadalupe Shore on 08-30-2024 Serum or plasma alkaline phosphatase measurement 143 U/L High 45-117 [facility] ALT [Catalytic activity/Vol] Ordered By: Maria Guadalupe Shore on 08-30-2024 Serum or plasma alanine aminotransferase (ALT) measurement 19 U/L 16-61 [facility] Albumin [Mass/Vol]Ordered By : Maria Guadalupe Shore on 08-30-2024 Serum or plasma albumin measurement (mass/volume) 1.9 g/dL Low 3.2-5.0 [facility] Bilirubin directOrdered By: Maria Guadalupe Shore on 08-30-2024 Bilirubin.direct [Mass/Vol] 0.83 mg/dL High 0.00-0.30 [facility] Bilirubin, totalOrdered By: Maria Guadalupe Shore on 08-30-2024 Bilirubin [Mass/Vol] 1.30 mg/dL High 0.20-1.00 [facility] Comment on above: For patients on eltr ombopag therapy, use of [employer]ension [place] TBIL is not recommended. Bilirubin, total 1.30 mg/dL High 0.20-1.00 [facility] Bilirubin.direct [Mass/Vol]O rdered By: Maria Guadalupe Shore on 08-30-2024 Bilirubin direct 0.83 mg/dL High 0.00-0.30 [facility] Ferritin measurementOrdered By: Maria Guadalupe Shore 08-30-2024 Ferritin [Mass/Vol] 85 ng/mL 26-388 [facility] Ferritin measurement 85 ng/mL 26-388 [facility] HbA1c (Bld) [Mass fraction]O rdered By: Maria Guadalupe Shore on 08-30-2024 Hemoglobin A1c percentage 7.9 % High 3.8-5.6 [facility] Hemoglobin A1c percentageOrd ered By: Maria Guadalupe Shore on 08-30-2024 HbA1c (Bld) [Mass fraction] 7.9 % High 3.8-5.6 [facility] Comment on above: Normal < 5.7 % Predi abetic 5.7 - 6.4 % Diabetic >or= 6.5 % Please note range changes. Iron (Unsp spec) [Mass/Mass] Ordered By: Maria Guadalupe Shore on 08-30-2024 Iron [Mass/Vol] 62 ug/dL Low 65-175 [facility] Iron measurement (mass/mass) 62 ug/dL Low 65-175 [facility] Iron measurement (mass/mass) Ordered By: Maria Guadalupe Shore on 08-30-2024 Iron (Unsp spec) [Mass/Mass] 62 ug/dL Low 65-175 [facility] Iron saturation [Mass fracti on]Ordered By: Maria Guadalupe Shore on 08-30-2024 Iron Saturation 33.9 % 15.0-55.0 [facility] Serum or plasma iron saturation measurement (mass fraction) 33.9 % 15.0-55.0 [facility] Laboratory - Chemistry and C hemistry - challengeOrdered By: Maria Guadalupe Shore on 08-30-2024 AST [Catalytic activity/Vol] 22 U/L [facility] No Panel InformationOrdered By: Maria Guadalupe Shore on 08-30-2024 22 U/L [facility] Serum globulin measurementOr dered By: Maria Guadalupe Shore on 08-30-2024 Globulin (S) [Mass/Vol] 3.4 g/dL 2.2-4.2 [facility] Serum globulin measurement 3.4 g/dL 2.2-4.2 [facility] Serum or plasma alanine thomas otransferase (ALT) measurementOrdered By: Maria Guadalupe Shore on 08-30-2024 ALT [Catalytic activity/Vol] 19 U/L 16-61 [facility] Serum or plasma albumin roosevelt urement (mass/volume)Ordered By: Maria Guadalupe Shore on 08-30-2024 Albumin [Mass/Vol] 1.9 g/dL Low 3.2-5.0 [facility] Serum or plasma alkaline kendrick sphatase measurementOrdered By: Maria Guadalupe Shore on 08-30-2024 ALP [Catalytic activity/Vol] 143 U/L High 45-117 [facility] Serum or plasma iron saturat ion measurement (mass fraction)Ordered By: Maria Guadalupe Shore on 08-30-2024 Iron saturation [Mass fraction] 33.9 % 15.0-55.0 [facility] TIBCOrdered By: Maria Guadalupe Shore on 08-30-2024 Total Iron Binding Capacity 183 ug/dL Low 250-450 [facility] TIBC 183 ug/dL Low 250-450 [facility] Total proteinOrdered By: Caryl Shore on 08-30-2024 Protein [Mass/Vol] 5.3 g/dL Low 6.4-8.2 [facility] Total protein 5.3 g/dL Low 6.4-8.2 [facility] Venous blood ammonia measure mentOrdered By: Maria Guadalupe Shore on 08-30-2024 Ammonia (P) [Moles/Vol] 64.0 umol/L High [facility] Venous blood ammonia measurement 64.0 umol/L High [facility] Activated partial thrombopla stin time (aPTT) in platelet poor plasma by coagulation aOrdered By: Luis Carlos Anderson on 08-29-2024 aPTT Coag (PPP) [Time] 40.9 s High 24.1-36.2 [facility] Albumin to globulin ratioOrd ered By: Luis Carlos Anderson on 08-29-2024 Albumin/Globulin [Mass ratio] 0.4 {ratio} Low 0.9-2.4 [facility] Albumin to globulin ratio 0.4 RATIO Low 0.9-2.4 [facility] Bacteria LM.HPF (Urine sed) [#/Area]Ordered By: Luis Carlos Anderson on 08-29-2024 Urine Bacteria RARE /hpf None Seen [facility] Urine sediment bacteria count by microscopy (number/high power field) RARE /hpf None Seen [facility] Bilirubin Test strip Ql (U)O rdered By: Luis Carlos Anderson on 08-29-2024 Bilirubin Ql (U) 1 mg/dL High Negative [facility] Comment on above: COLOR OF URINE MAY A FFECT DIPSTICK RESULTS. Clarity (U)Ordered By: Juan Alberto Anderson on 08-29-2024 Urine clarity Clear Clear [facility] Color (U)Ordered By: Luis Carlos Anderson on 08-29-2024 Urine color determination Yellow Yellow [facility] Creatinine (U) [Mass/Vol]Ord ered By: Maria Guadalupe Shore on 08-29-2024 Urine creatinine measurement (mass/volume) 173.00 mg/dL NO RANGE EST. [facility] Epithelial cells.squamous LM Ql (Urine sed)Ordered By: Luis Carlos Anderson on 08-29-2024 Epithelial cells.squamous LM.HPF (Urine sed) [#/Area] 0 /[HPF] 0-5 [facility] Squamous epithelial cells detection in urine sediment by light microscopy 0 SEEN /hpf 0-5 [facility] Glucose Ql (U)Ordered By: Yaya Anderson on 08-29-2024 Glucose (U) [Mass/Vol] 50 mg/dL High Normal [facility] Urine glucose detection 50 mg/dl High Normal [facility] International normalized rat io (INR) calculationOrdered By: Luis Carlos Anderson on 08-29-2024 INR Coag (Bld) [Relative time] 1.7 {INR} [facility] International normalized ratio (INR) calculation 1.7 [facility] Ketones Test strip Ql (U)Ord ered By: Luis Carlos Anderson on 08-29-2024 Ketones Ql (U) Negative Negative [facility] Leukocyte esterase Test stri p Ql (U)Ordered By: Luis Carlos Anderson on 08-29-2024 Urine leukocyte esterase detection by dipstick 500 /ul High Negative [facility] Lipase measurementOrdered By : Luis Carlos Anderson on 08-29-2024 Lipase [Catalytic activity/Vol] 26 U/L 13-75 [facility] Comment on above: Please note:LIPASE r evised reference range effective 22. New Lipase methodology. Expected to produce lower values than the previous assay method. NEW Reference Range: 13 - 75 U/L Lipase measurement 26 U/L 13-75 [facility] Magnesium measurementOrdered By: Maria Guadalupe Shore on 08-29-2024 Magnesium [Mass/Vol] 2.7 mg/dL High 1.6-2.6 [facility] Magnesium measurement 2.7 mg/dL High 1.6-2.6 [facility] Microscopic analysis of urin e for red blood cells (RBC)Ordered By: Luis Carlos Anderson on 08-29-2024 Urine RBC 5-10 SEEN /hpf 0-5 [facility] Microscopic analysis of urine for red blood cells (RBC) 5-10 SEEN /hpf 0-5 [facility] Mucus LM Ql (Urine sed)Order ed By: Luis Carlos Anderson on 08-29-2024 Mucus Ql (Urine sed) 1+ /hpf [facility] Mucus detection in urine sediment by light microscopy 1+ /hpf [facility] Nitrite Test strip Ql (U)Ord ered By: Luis Carlos Anderson on 08-29-2024 Nitrite Ql (U) Negative Negative [facility] Phosphorus measurementOrdere d By: Maria Guadalupe Shore on 08-29-2024 Phosphorus Level 4.9 mg/dL 2.5-4.9 [facility] Phosphorus measurement 4.9 mg/dL 2.5-4.9 [facility] Protein Test strip Ql (U)Ord ered By: Luis Carlos Anderson on 08-29-2024 Protein Ql (U) 30 mg/dl High Negative [facility] Urine protein assay by test strip, semi-quantitative 30 mg/dl High Negative [facility] Prothrombin timeOrdered By: Luis Carlos Anderson on 08-29-2024 PT Coag (PPP) [Time] 20.0 s High 11.7-14.9 [facility] Prothrombin time 20.0 SECONDS High 11.7-14.9 [facility] Sodium urOrdered By: Maria Guadalupe Shore on 08-29-2024 Sodium (U) [Moles/Vol] 30 mmol/L Not Establ. [facility] Sodium [Moles/Vol] 30 mmol/L [facility] Establ[facility]L Not Establ. [facility] Specific gravity (U) [Rel de nsity]Ordered By: Luis Carlos Anderson on 08-29-2024 Urine specific gravity measurement 1.015 1.002-1.030 [facility] Squamous epithelial cells de tection in urine sediment by light microscopyOrdered By: Luis Carlos Anderson on 08-29-2024 Epithelial cells.squamous LM Ql (Urine sed) 0 SEEN /hpf 0-5 [facility] Urine blood detectionOrdered By: Luis Carlos Anderson on 08-29-2024 Urine Occult Blood 150 /ul High Negative [facility] Urine blood detection 150 /ul High Negative [facility] Urine clarityOrdered By: Joann Anderson on 08-29-2024 Clarity (U) Clear Clear [facility] Urine color determinationOrd ered By: Luis Carlos Anderson on 08-29-2024 Color (U) Yellow Yellow [facility] Urine creatinine measurement (mass/volume)Ordered By: Maria Guadalupe Shore on 08-29-2024 Creatinine (U) [Mass/Vol] 173.00 mg/dL NO RANGE EST. [facility] Urine cultureOrdered By: Joann Anderson on 08-29-2024 Bacteria identified Cx Nom (U) Culture exhibits no growth. [facility] Urine culture Culture exhibits no growth. [facility] Urine glucose detectionOrder ed By: Luis Carlos Anderson on 08-29-2024 Glucose Ql (U) 50 mg/dl High Normal [facility] Urine ketones detection by t est stripOrdered By: Luis Carlos Anderson on 08-29-2024 Urine ketones detection by test strip Negative Negative [facility] Urine leukocyte esterase det ection by dipstickOrdered By: Luis Carlos Anderson on 08-29-2024 Leukocyte esterase Test strip Ql (U) 500 /ul High Negative [facility] Urine pHOrdered By: Luis Carlos hammond on 08-29-2024 pH (U) 6.0 [pH] 5.0 - 8.0 [facility] Urine sediment bacteria coun t by microscopy (number/high power field)Ordered By: Luis Carlos Anderson on 08-29-2024 Bacteria LM.HPF (Urine sed) [#/Area] RARE /hpf None Seen [facility] Urine specific gravity measu rementOrdered By: Luis Carlos Anderson on 08-29-2024 Specific gravity (U) [Rel density] 1.015 1.002-1.030 [facility] Urine total bilirubin detect ion by test stripOrdered By: Luis Carlos Anderson on 08-29-2024 Urine total bilirubin detection by test strip 1 mg/dL High Normal [facility] Urine urobilinogen measureme ntOrdered By: Luis Carlos Anderson on 08-29-2024 Urobilinogen Ql (U) 1 mg/dl High Normal [facility] Urobilinogen Ql (U)Ordered B y: Luis Carlos Anderson on 08-29-2024 Urobilinogen (U) [Mass/Vol] 1 mg/dL High Normal [facility] White blood cell countOrdere d By: Luis Carlos Anderson on 08-29-2024 Urine WBC 10-25 SEEN /hpf 0-5 [facility] White blood cell count 10-25 SEEN /hpf 0-5 [facility] White blood cell count 10-25 SEEN /hpf 0-5 [facility] aPTT Coag (PPP) [Time]Ordere d By: Luis Carlos Anderson on 08-29-2024 aPTT Coag (Bld) [Time] 40.9 s High 24.1-36.2 [facility] Activated partial thromboplastin time (aPTT) in platelet poor plasma by coagulation a 40.9 Seconds High 24.1-36.2 [facility] pH (U)Ordered By: Ashu on 08-29-2024 Urine pH 6.0 5.0 - 8.0 [facility] Vital Signs Date Time Vital Sign Value Performing Clinician Facility 04-10-2025 07:45-0400 Body temperature 98 [degF] Josy Elias [employer] Work Phone: 9(497)872-525878 [place] [address] 04-10-2025 07:45-0400 Diastolic blood pressure 57 mm[Hg] Josy Elias [employer] Work Phone: 5(634)230-272078 [place] [address] 04-10-2025 07:45-0400 Heart rate 80 /min Josy Elias [employer] Work Phone: 4(617)[phone] [place] [address] 04-10-2025 07:45-0400 Respiratory rate 16 /min Josy Elias [employer] Work Phone: 7(847)940-183078 [place] [address] 04-10-2025 07:45-0400 SaO2% (BldA) [Mass fraction] 98 % Josy Elias [employer] Work Phone: 5(258)069-148278 [place] [address] 04-10-2025 07:45-0400 Systolic blood pressure 109 mm[Hg] Josy Elias [employer] Work Phone: 8(032)539-822378 [place] [address] 04-10-2025 06:00-0400 Body mass index (BMI) [Ratio] 32 kg/m2 Josy Elias [employer] Work Phone: 5(766)[phone] [place] [address] 04-10-2025 06:00-0400 Body weight 98.1 kg Josy Elias [employer] Work Phone: 7(307)427-108578 [place] [address] 04-08-2025 13:18-0400 Body height 175.26 cm Josy Elias [employer] Work Phone: 1(912)437-381779 [place] [address] 04-07-2025 22:05-0400 Body mass index (BMI) [Ratio] 33.3 kg/m2 Josy Obrienf [employer] Work Phone: 7(298)812-291979 [address] [place] [address] 04-07-2025 22:05-0400 Body temperature 98 [degF] Josy Obrienf [employer] Work Phone: 8(079)[phone] [place] [address] 04-07-2025 22:05-0400 Body weight 102.3 kg Josy Obrienf [employer] Work Phone: 6(717)835-646878 [place] [address] 04-07-2025 22:05-0400 Diastolic blood pressure 70 mm[Hg] Josy Obrienf [employer] Work Phone: 5(343)231-799678 [place] [address] 04-07-2025 22:05-0400 Heart rate 74 /min Josy Obrienf [employer] Work Phone: 5(153)018-102378 [place] [address] 04-07-2025 22:05-0400 Respiratory rate 15 /min Josy Obrienf [employer] Work Phone: 3(778)549-782178 [place] [address] 04-07-2025 22:05-0400 SaO2% (BldA) [Mass fraction] 100 % Josy Obrienf [employer] Work Phone: 1(208)674-105578 [place] [address] 04-07-2025 22:05-0400 Systolic blood pressure 112 mm[Hg] Josy Obrienf [employer] Work Phone: 6(680)286-648978 [place] [address] 04-07-2025 18:05-0400 Body height 175.26 cm Josy Obrienf [employer] Work Phone: 9(116)065-284878 [place] [address] 04-03-2025 20:14-0400 Body temperature 97.8 [degF] Josy Obrienf [employer] Work Phone: 2(412)704-777278 [place] [address] 04-03-2025 20:14-0400 Diastolic blood pressure 83 mm[Hg] Josy Obrienf [employer] Work Phone: 6(028)502-246778 [place] [address] 04-03-2025 20:14-0400 Heart rate 109 /min Josy Obrienf [employer] Work Phone: 5(712)250-538279 [place] [address] 04-03-2025 20:14-0400 Respiratory rate 20 /min Josy Obrienf [employer] Work Phone: 4(509)717-780879 [place] [address] 04-03-2025 20:14-0400 SaO2% (BldA) [Mass fraction] 95 % Josy Obrienf [employer] Work Phone: 1(971)811-494978 [place] [address] 04-03-2025 20:14-0400 Systolic blood pressure 117 mm[Hg] Josy Obrienf [employer] Work Phone: 7(730)587-961278 [place] [address] 03-30-2025 13:05-0400 Body temperature 97.3 [degF] Josy Obrienf [employer] Work Phone: 8(195)150-487378 [place] [address] 03-30-2025 13:05-0400 Diastolic blood pressure 63 mm[Hg] Josy Obrienf [employer] Work Phone: 2(177)940-125378 [place] [address] 03-30-2025 13:05-0400 Heart rate 75 /min Josy Obrienf [employer] Work Phone: 8(185)392-308978 [place] [address] 03-30-2025 13:05-0400 Respiratory rate 16 /min Josy Obrienf [employer] Work Phone: 1(829)095-281978 [place] [address] 03-30-2025 13:05-0400 SaO2% (BldA) [Mass fraction] 100 % Josy Obrienf [employer] Work Phone: 2(608)124-029979 [place] [address] 03-30-2025 13:05-0400 Systolic blood pressure 102 mm[Hg] Josy Obrienf [employer] Work Phone: 7(014)772-343978 [place] [address] 03-30-2025 10:56-0400 Body mass index (BMI) [Ratio] 29.9 kg/m2 Josy Obrienf [employer] Work Phone: 1(057)363-298478 [place] [address] 03-30-2025 10:56-0400 Body weight 92 kg Josy Obrienf [employer] Work Phone: 9(496)[phone] [place] [address] 03-11-2025 22:11-0400 Body temperature 98.1 [degF] No Primary Care Physician [facility] 03-11-2025 22:11-0400 Diastolic blood pressure 65 mm[Hg] No Primary Care Physician [facility] 03-11-2025 22:11-0400 Heart rate 70 /min No Primary Care Physician [facility] 03-11-2025 22:11-0400 Respiratory rate 16 /min No Primary Care Physician [facility] 03-11-2025 22:11-0400 SaO2% (BldA) [Mass fraction] 100 % No Primary Care Physician [facility] 03-11-2025 22:11-0400 Systolic blood pressure 98 mm[Hg] No Primary Care Physician [facility] 03-11-2025 17:10-0400 Body height 175.26 cm No Primary Care Physician [facility] 03-11-2025 17:10-0400 Body mass index (BMI) [Ratio] 29.8 kg/m2 No Primary Care Physician [facility] 03-11-2025 17:10-0400 Body weight 91.62 kg No Primary Care Physician [facility] 03-10-2025 14:16-0400 Body mass index (BMI) [Ratio] 29 kg/m2 No Primary Care Physician [facility] 03-10-2025 14:16-0400 Body weight 89.35 kg No Primary Care Physician [facility] 03-10-2025 14:16-0400 Diastolic blood pressure 59 mm[Hg] No Primary Care Physician [facility] 03-10-2025 14:16-0400 Heart rate 77 /min No Primary Care Physician [facility] 03-10-2025 14:16-0400 Respiratory rate 17 /min No Primary Care Physician [facility] 03-10-2025 14:16-0400 SaO2% (BldA) [Mass fraction] 99 % No Primary Care Physician [facility] 03-10-2025 14:16-0400 Systolic blood pressure 95 mm[Hg] No Primary Care Physician [facility] 03-04-2025 12:36-0400 Diastolic blood pressure 64 mm[Hg] No Primary Care Physician [facility] 03-04-2025 12:36-0400 Heart rate 68 /min No Primary Care Physician [facility] 03-04-2025 12:36-0400 Respiratory rate 16 /min No Primary Care Physician [facility] 03-04-2025 12:36-0400 Systolic blood pressure 103 mm[Hg] No Primary Care Physician [facility] 02-27-2025 14:46-0400 Body temperature 98.4 [degF] No Primary Care Physician [facility] 02-27-2025 14:46-0400 Diastolic blood pressure 67 mm[Hg] No Primary Care Physician [facility] 02-27-2025 14:46-0400 Heart rate 87 /min No Primary Care Physician [facility] 02-27-2025 14:46-0400 Respiratory rate 16 /min No Primary Care Physician [facility] 02-27-2025 14:46-0400 SaO2% (BldA) [Mass fraction] 96 % No Primary Care Physician [facility] 02-27-2025 14:46-0400 Systolic blood pressure 119 mm[Hg] No Primary Care Physician [facility] 02-26-2025 15:23-0400 Body weight 90.26 kg No Primary Care Physician [facility] 02-25-2025 11:36-0400 Body mass index (BMI) [Ratio] 31.9 kg/m2 No Primary Care Physician [facility] 02-17-2025 17:05-0400 Body temperature 98.2 [degF] No Primary Care Physician [facility] 02-17-2025 17:05-0400 Diastolic blood pressure 71 mm[Hg] No Primary Care Physician [facility] 02-17-2025 17:05-0400 Heart rate 74 /min No Primary Care Physician [facility] 02-17-2025 17:05-0400 Respiratory rate 16 /min No Primary Care Physician [facility] 02-17-2025 17:05-0400 SaO2% (BldA) [Mass fraction] 98 % No Primary Care Physician [facility] 02-17-2025 17:05-0400 Systolic blood pressure 123 mm[Hg] No Primary Care Physician [facility] 02-16-2025 19:56-0400 Body height 175.26 cm No Primary Care Physician [facility] 02-16-2025 19:56-0400 Body mass index (BMI) [Ratio] 31.1 kg/m2 No Primary Care Physician [facility] 02-16-2025 19:56-0400 Body weight 95.6 kg No Primary Care Physician [facility] 02-16-2025 19:34-0400 Body temperature 97.8 [degF] No Primary Care Physician [facility] 02-16-2025 19:34-0400 Diastolic blood pressure 61 mm[Hg] No Primary Care Physician [facility] 02-16-2025 19:34-0400 Heart rate 76 /min No Primary Care Physician [facility] 02-16-2025 19:34-0400 Respiratory rate 18 /min No Primary Care Physician [facility] 02-16-2025 19:34-0400 SaO2% (BldA) [Mass fraction] 96 % No Primary Care Physician [facility] 02-16-2025 19:34-0400 Systolic blood pressure 102 mm[Hg] No Primary Care Physician [facility] 02-16-2025 17:20-0400 Body height 175.26 cm No Primary Care Physician [facility] 02-13-2025 21:17-0400 Body temperature 98.8 [degF] No Primary Care Physician [facility] 02-13-2025 21:17-0400 Diastolic blood pressure 75 mm[Hg] No Primary Care Physician [facility] 02-13-2025 21:17-0400 Heart rate 59 /min No Primary Care Physician [facility] 02-13-2025 21:17-0400 Respiratory rate 16 /min No Primary Care Physician [facility] 02-13-2025 21:17-0400 SaO2% (BldA) [Mass fraction] 100 % No Primary Care Physician [facility] 02-13-2025 21:17-0400 Systolic blood pressure 97 mm[Hg] No Primary Care Physician [facility] 02-13-2025 16:30-0400 Body height 175.26 cm No Primary Care Physician [facility] 02-13-2025 16:30-0400 Body mass index (BMI) [Ratio] 33 kg/m2 No Primary Care Physician [facility] 02-13-2025 16:30-0400 Body weight 101.5 kg No Primary Care Physician [facility] 02-11-2025 12:35-0400 Diastolic blood pressure 55 mm[Hg] No Primary Care Physician [facility] 02-11-2025 12:35-0400 Heart rate 63 /min No Primary Care Physician [facility] 02-11-2025 12:35-0400 Respiratory rate 18 /min No Primary Care Physician [facility] 02-11-2025 12:35-0400 Systolic blood pressure 85 mm[Hg] No Primary Care Physician [facility] 02-11-2025 12:33-0400 Body temperature 97.3 [degF] No Primary Care Physician [facility] 02-08-2025 01:26-0400 Body temperature 97.6 [degF] No Primary Care Physician [facility] 02-08-2025 01:26-0400 Diastolic blood pressure 63 mm[Hg] No Primary Care Physician [facility] 02-08-2025 01:26-0400 Heart rate 62 /min No Primary Care Physician [facility] 02-08-2025 01:26-0400 Respiratory rate 18 /min No Primary Care Physician [facility] 02-08-2025 01:26-0400 SaO2% (BldA) [Mass fraction] 100 % No Primary Care Physician [facility] 02-08-2025 01:26-0400 Systolic blood pressure 97 mm[Hg] No Primary Care Physician [facility] 02-07-2025 22:20-0400 Body mass index (BMI) [Ratio] 34.8 kg/m2 No Primary Care Physician [facility] 02-07-2025 22:20-0400 Body weight 107.1 kg No Primary Care Physician [facility] 02-07-2025 19:24-0400 Body height 175.26 cm No Primary Care Physician [facility] 01-31-2025 18:35-0400 Body temperature 98.1 [degF] No Primary Care Physician [facility] 01-31-2025 18:35-0400 Diastolic blood pressure 86 mm[Hg] No Primary Care Physician [facility] 01-31-2025 18:35-0400 Heart rate 100 /min No Primary Care Physician [facility] 01-31-2025 18:35-0400 Respiratory rate 16 /min No Primary Care Physician [facility] 01-31-2025 18:35-0400 SaO2% (BldA) [Mass fraction] 100 % No Primary Care Physician [facility] 01-31-2025 18:35-0400 Systolic blood pressure 127 mm[Hg] No Primary Care Physician [facility] 01-31-2025 09:49-0400 Body height 182.88 cm No Primary Care Physician [facility] 01-31-2025 09:49-0400 Body weight 110.3 kg No Primary Care Physician [facility] 01-28-2025 09:46-0400 Body mass index (BMI) [Ratio] 33 kg/m2 No Primary Care Physician [facility] 01-28-2025 09:00-0400 Body temperature 98 [degF] No Primary Care Physician [facility] 01-28-2025 09:00-0400 Diastolic blood pressure 67 mm[Hg] No Primary Care Physician [facility] 01-28-2025 09:00-0400 Heart rate 106 /min No Primary Care Physician [facility] 01-28-2025 09:00-0400 Respiratory rate 15 /min No Primary Care Physician [facility] 01-28-2025 09:00-0400 SaO2% (BldA) [Mass fraction] 100 % No Primary Care Physician [facility] 01-28-2025 09:00-0400 Systolic blood pressure 125 mm[Hg] No Primary Care Physician [facility] 01-28-2025 02:56-0400 Body height 187.96 cm No Primary Care Physician [facility] 01-28-2025 02:56-0400 Body mass index (BMI) [Ratio] 31.7 kg/m2 No Primary Care Physician [facility] 01-28-2025 02:56-0400 Body weight 112.2 kg No Primary Care Physician [facility] 01-21-2025 13:00-0400 Body temperature 97.7 [degF] No Primary Care Physician [facility] 01-21-2025 13:00-0400 Diastolic blood pressure 60 mm[Hg] No Primary Care Physician [facility] 01-21-2025 13:00-0400 Heart rate 91 /min No Primary Care Physician [facility] 01-21-2025 13:00-0400 Respiratory rate 18 /min No Primary Care Physician [facility] 01-21-2025 13:00-0400 SaO2% (BldA) [Mass fraction] 97 % No Primary Care Physician [facility] 01-21-2025 13:00-0400 Systolic blood pressure 100 mm[Hg] No Primary Care Physician [facility] 01-21-2025 05:13-0400 Body mass index (BMI) [Ratio] 35.8 kg/m2 No Primary Care Physician [facility] 01-21-2025 05:13-0400 Body weight 110.1 kg No Primary Care Physician [facility] 01-17-2025 14:51-0400 Body height 175.26 cm No Primary Care Physician [facility] 01-09-2025 14:01-0400 Heart rate 69 /min No Primary Care Physician [facility] 01-09-2025 14:01-0400 Respiratory rate 16 /min No Primary Care Physician [facility] 01-09-2025 14:01-0400 SaO2% (BldA) [Mass fraction] 100 % No Primary Care Physician [facility] 01-09-2025 14:00-0400 Diastolic blood pressure 59 mm[Hg] No Primary Care Physician [facility] 01-09-2025 14:00-0400 Systolic blood pressure 107 mm[Hg] No Primary Care Physician [facility] 01-09-2025 13:04-0400 Body temperature 98 [degF] No Primary Care Physician [facility] 01-09-2025 10:10-0400 Body height 175.26 cm No Primary Care Physician [facility] 01-09-2025 10:10-0400 Body mass index (BMI) [Ratio] 29.5 kg/m2 No Primary Care Physician [facility] 01-09-2025 10:10-0400 Body weight 90.6 kg No Primary Care Physician [facility] 01-05-2025 16:00-0400 Body temperature 98.1 [degF] No Primary Care Physician [facility] 01-05-2025 16:00-0400 Diastolic blood pressure 60 mm[Hg] No Primary Care Physician [facility] 01-05-2025 16:00-0400 Heart rate 73 /min No Primary Care Physician [facility] 01-05-2025 16:00-0400 Respiratory rate 16 /min No Primary Care Physician [facility] 01-05-2025 16:00-0400 SaO2% (BldA) [Mass fraction] 94 % No Primary Care Physician [facility] 01-05-2025 16:00-0400 Systolic blood pressure 103 mm[Hg] No Primary Care Physician [facility] 01-05-2025 04:44-0400 Body mass index (BMI) [Ratio] 29.9 kg/m2 No Primary Care Physician [facility] 01-05-2025 04:44-0400 Body weight 92.2 kg No Primary Care Physician [facility] 01-02-2025 10:11-0400 Body height 175.26 cm No Primary Care Physician [facility] 01-02-2025 06:34-0400 Body temperature 97.8 [degF] No Primary Care Physician [facility] 01-02-2025 06:34-0400 Diastolic blood pressure 73 mm[Hg] No Primary Care Physician [facility] 01-02-2025 06:34-0400 Heart rate 68 /min No Primary Care Physician [facility] 01-02-2025 06:34-0400 Respiratory rate 20 /min No Primary Care Physician [facility] 01-02-2025 06:34-0400 SaO2% (BldA) [Mass fraction] 100 % No Primary Care Physician [facility] 01-02-2025 06:34-0400 Systolic blood pressure 105 mm[Hg] No Primary Care Physician [facility] 01-02-2025 02:59-0400 Body height 175.26 cm No Primary Care Physician [facility] 01-02-2025 02:59-0400 Body mass index (BMI) [Ratio] 27.5 kg/m2 No Primary Care Physician [facility] 01-02-2025 02:59-0400 Body weight 84.5 kg No Primary Care Physician [facility] 12-30-2024 05:24-0400 Body temperature 97.9 [degF] No Primary Care Physician [facility] 12-30-2024 05:24-0400 Diastolic blood pressure 52 mm[Hg] No Primary Care Physician [facility] 12-30-2024 05:24-0400 Heart rate 71 /min No Primary Care Physician [facility] 12-30-2024 05:24-0400 Respiratory rate 18 /min No Primary Care Physician [facility] 12-30-2024 05:24-0400 SaO2% (BldA) [Mass fraction] 93 % No Primary Care Physician [facility] 12-30-2024 05:24-0400 Systolic blood pressure 93 mm[Hg] No Primary Care Physician [facility] 12-30-2024 01:07-0400 Body height 175.26 cm No Primary Care Physician [facility] 12-30-2024 01:07-0400 Body mass index (BMI) [Ratio] 28.4 kg/m2 No Primary Care Physician [facility] 12-30-2024 01:07-0400 Body weight 87.3 kg No Primary Care Physician [facility] 12-26-2024 14:27-0400 Body temperature 97 [degF] No Primary Care Physician [facility] 12-26-2024 14:27-0400 Diastolic blood pressure 58 mm[Hg] No Primary Care Physician [facility] 12-26-2024 14:27-0400 Heart rate 64 /min No Primary Care Physician [facility] 12-26-2024 14:27-0400 Respiratory rate 16 /min No Primary Care Physician [facility] 12-26-2024 14:27-0400 SaO2% (BldA) [Mass fraction] 97 % No Primary Care Physician [facility] 12-26-2024 14:27-0400 Systolic blood pressure 90 mm[Hg] No Primary Care Physician [facility] 12-26-2024 10:00-0400 Body height 175.26 cm No Primary Care Physician [facility] 12-26-2024 10:00-0400 Body mass index (BMI) [Ratio] 29.7 kg/m2 No Primary Care Physician [facility] 12-26-2024 10:00-0400 Body weight 91.4 kg No Primary Care Physician [facility] 12-02-2024 12:13-0400 Body temperature 98.7 [degF] No Primary Care Physician [facility] 12-02-2024 12:13-0400 Diastolic blood pressure 68 mm[Hg] No Primary Care Physician [facility] 12-02-2024 12:13-0400 Heart rate 86 /min No Primary Care Physician [facility] 12-02-2024 12:13-0400 Respiratory rate 18 /min No Primary Care Physician [facility] 12-02-2024 12:13-0400 SaO2% (BldA) [Mass fraction] 97 % No Primary Care Physician [facility] 12-02-2024 12:13-0400 Systolic blood pressure 117 mm[Hg] No Primary Care Physician [facility] 12-02-2024 02:57-0400 Body mass index (BMI) [Ratio] 33 kg/m2 No Primary Care Physician [facility] 12-02-2024 02:57-0400 Body weight 101.6 kg No [facility] [facility] 11-29-2024 09:53-0400 Body height 175.26 cm No Primary Care Physician [facility] 11-25-2024 18:31-0400 Body temperature 98.2 [degF] No Primary Care Physician [facility] 11-25-2024 18:31-0400 Diastolic blood pressure 80 mm[Hg] No Primary Care Physician [facility] 11-25-2024 18:31-0400 Heart rate 97 /min No Primary Care Physician [facility] 11-25-2024 18:31-0400 Respiratory rate 18 /min No Primary Care Physician [facility] 11-25-2024 18:31-0400 SaO2% (BldA) [Mass fraction] 98 % No Primary Care Physician [facility] 11-25-2024 18:31-0400 Systolic blood pressure 122 mm[Hg] No Primary Care Physician [facility] 11-24-2024 15:17-0400 Body weight 102.7 kg No Primary Care Physician [facility] 11-21-2024 05:32-0400 Body mass index (BMI) [Ratio] 33.4 kg/m2 No Primary Care Physician [facility] 11-21-2024 05:00-0400 Heart rate 77 /min No Primary Care Physician [facility] 11-21-2024 04:51-0400 Body temperature 98.2 [degF] No Primary Care Physician [facility] 11-21-2024 04:51-0400 Diastolic blood pressure 57 mm[Hg] No Primary Care Physician [facility] 11-21-2024 04:51-0400 Respiratory rate 16 /min No Primary Care Physician [facility] 11-21-2024 04:51-0400 SaO2% (BldA) [Mass fraction] 97 % No Primary Care Physician [facility] 11-21-2024 04:51-0400 Systolic blood pressure 127 mm[Hg] No Primary Care Physician [facility] 11-21-2024 01:32-0400 Body height 175.26 cm No Primary Care Physician [facility] 11-21-2024 01:32-0400 Body mass index (BMI) [Ratio] 34.3 kg/m2 No Primary Care Physician [facility] 11-21-2024 01:32-0400 Body weight 105.4 kg No Primary Care Physician [facility] 11-12-2024 18:03-0400 SaO2% (BldA) [Mass fraction] 99 % KATHIE POWERS [facility] Comment on above: Order Comment: Specimen Type: ARTERIAL B LOOD SPECIMENOrdering Facility: [facility] Address: [address] [place] [address] Performed By: #### A LLBG ####[facility] LABCLIA [id number] [place] [address] [place] 11-10-2024 23:40-0400 Body temperature 97.8 [degF] No Primary Care Physician [facility] 11-10-2024 23:40-0400 Diastolic blood pressure 70 mm[Hg] No Primary Care Physician [facility] 11-10-2024 23:40-0400 Heart rate 110 /min No Primary Care Physician [facility] 11-10-2024 23:40-0400 Respiratory rate 18 /min No Primary Care Physician [facility] 11-10-2024 23:40-0400 SaO2% (BldA) [Mass fraction] 97 % No Primary Care Physician [facility] 11-10-2024 23:40-0400 Systolic blood pressure 116 mm[Hg] No Primary Care Physician [facility] 11-10-2024 04:54-0400 Body mass index (BMI) [Ratio] 36.7 kg/m2 No Primary Care Physician [facility] 11-10-2024 04:54-0400 Body weight 112.8 kg No Primary Care Physician [facility] 11-09-2024 14:30-0400 Body height 175.26 cm No Primary Care Physician [facility] 10-29-2024 01:23-0400 Body temperature 97.4 [degF] No Primary Care Physician [facility] 10-29-2024 01:23-0400 Diastolic blood pressure 54 mm[Hg] No Primary Care Physician [facility] 10-29-2024 01:23-0400 Heart rate 77 /min No Primary Care Physician [facility] 10-29-2024 01:23-0400 Respiratory rate 14 /min No Primary Care Physician [facility] 10-29-2024 01:23-0400 SaO2% (BldA) [Mass fraction] 97 % No Primary Care Physician [facility] 10-29-2024 01:23-0400 Systolic blood pressure 97 mm[Hg] No Primary Care Physician [facility] 10-28-2024 21:43-0400 Body mass index (BMI) [Ratio] 30.4 kg/m2 No Primary Care Physician [facility] 10-28-2024 21:43-0400 Body weight 93.1 kg No Primary Care Physician [facility] 10-28-2024 17:13-0400 Body height 175.01 cm No Primary Care Physician [facility] 10-04-2024 21:45-0500 Diastolic blood pressure 89 mm[Hg] Maurice wen MD Work Phone: [facility] 10-04-2024 21:45-0500 Heart rate 94 /min Maurice Rincon MD Work Phone: [facility] 10-04-2024 21:45-0500 Respiratory rate 18 /min Maurice Rincon MD Work Phone: [facility] 10-04-2024 21:45-0500 SaO2% (BldA) [Mass fraction] 100 % Maurice Rincon MD Work Phone: [facility] 10-04-2024 21:45-0500 Systolic blood pressure 152 mm[Hg] Maurice parada MD Work Phone: [facility] 10-04-2024 12:03-0500 Body temperature 97.59 [degF] Mauirce Rincon MD Work Phone: [facility] 10-04-2024 12:03-0500 Body weight 117.48 kg Maurice Rincon MD Work Phone: [facility] 09-29-2024 10:21-0500 Body temperature 97.3 [degF] No Primary Care Physician [facility] 09-29-2024 10:21-0500 Diastolic blood pressure 74 mm[Hg] No Primary Care Physician [facility] 09-29-2024 10:21-0500 Heart rate 81 /min No Primary Care Physician [facility] 09-29-2024 10:21-0500 Respiratory rate 18 /min No Primary Care Physician [facility] 09-29-2024 10:21-0500 Systolic blood pressure 138 mm[Hg] No Primary Care Physician [facility] 09-15-2024 03:49-0500 Body temperature 97.8 [degF] No Primary Care Physician [facility] 09-15-2024 03:49-0500 Diastolic blood pressure 70 mm[Hg] No Primary Care Physician [facility] 09-15-2024 03:49-0500 Heart rate 80 /min No Primary Care Physician [facility] 09-15-2024 03:49-0500 Respiratory rate 17 /min No Primary Care Physician [facility] 09-15-2024 03:49-0500 SaO2% (BldA) [Mass fraction] 96 % No Primary Care Physician [facility] 09-15-2024 03:49-0500 Systolic blood pressure 142 mm[Hg] No Primary Care Physician [facility] 09-14-2024 04:07-0500 Body mass index (BMI) [Ratio] 36.7 kg/m2 No Primary Care Physician [facility] 09-14-2024 04:07-0500 Body weight 112.8 kg No Primary Care Physician [facility] 09-10-2024 14:03-0500 Body height 175.26 cm No Primary Care Physician [facility] 09-07-2024 01:24-0500 Inhaled oxygen concentration 21 % No Primary Care Physician [facility] 09-06-2024 05:00-0500 Inhaled oxygen flow rate 8 L/min No Primary Care Physician [facility] 09-02-2024 15:36-0500 Body weight 104 kg No Primary Care Physician [facility] 09-02-2024 14:54-0500 Body temperature 98.1 [degF] No Primary Care Physician [facility] 09-02-2024 14:54-0500 Diastolic blood pressure 62 mm[Hg] No Primary Care Physician [facility] 09-02-2024 14:54-0500 Heart rate 60 /min No Primary Care Physician [facility] 09-02-2024 14:54-0500 Respiratory rate 18 /min No Primary Care Physician [facility] 09-02-2024 14:54-0500 SaO2% (BldA) [Mass fraction] 99 % No Primary Care Physician [facility] 09-02-2024 14:54-0500 Systolic blood pressure 118 mm[Hg] No Primary Care Physician [facility] 09-02-2024 03:57-0500 Body mass index (BMI) [Ratio] 33.8 kg/m2 No Primary Care Physician [facility] 08-21-2024 16:33-0500 Body temperature 98.5 [degF] No Primary Care Physician [facility] 08-21-2024 16:33-0500 Diastolic blood pressure 78 mm[Hg] No Primary Care Physician [facility] 08-21-2024 16:33-0500 Heart rate 61 /min No Primary Care Physician [facility] 08-21-2024 16:33-0500 Respiratory rate 12 /min No Primary Care Physician [facility] 08-21-2024 16:33-0500 SaO2% (BldA) [Mass fraction] 97 % No Primary Care Physician [facility] 08-21-2024 16:33-0500 Systolic blood pressure 114 mm[Hg] No Primary Care Physician [facility] 08-21-2024 13:52-0500 Body mass index (BMI) [Ratio] 33 kg/m2 No Primary Care Physician [facility] 08-21-2024 13:52-0500 Body weight 101.5 kg No Primary Care Physician [facility] Encounters Encounter Date Encounter Type Care Provider Facility Start: 04-10-2025 Dr. Anurag Irene MD -[facility] Work Phone: Start: 04-09-2025 Dr. Anurag Irene MD -[facility] Work Phone: Start: 04-08-2025 Dr. Maria Guadalupe Shore MD - [facility] Work Phone: Start: 04-07-2025 Evaluation and manag ement of inpatient Josy Baumannhof MERCHANDISING ASSISTANT-C Work Phone: -Medical Surgical 3 Start: 04-07-2025 Dr. Maria Guadalupe Shore MD - [facility] 3 Work Phone: Start: 04-07-2025 End: 04-10-2025 Evaluation and management of inpatient Josy Baumannhof MERCHANDISING ASSISTANT-C Work Phone: -Medical Surgical 3 Start: 04-07-2025 ambulatory [facility] Facility :[facility] Start: 04-07-2025 End: 04-10-2025 Dr. Maria Guadalupe Shore MD -[facility] Work Phone: Start: 04-03-2025 End: 04-03-2025 Josydominique Obrienf MERCHANDISING ASSISTANT-C Work Phone: -Emergency Department Work Phone: Start: 04-03-2025 End: 04-03-2025 Emergency department patient visit [facility] Facility:[facility] Start: 03-30-2025 End: 03-30-2025 Dr. Roby Balderas MD -[facility] Start: 03-30-2025 End: 03-30-2025 ambulatory Roby Balderas Facility:[facility] Start: 03-25-2025 ambulatory [facility] Facility [facility] Start: 03-16-2025 ambulatory Nelida Giuseppechandler Campbell ty:[facility] Start: 03-11-2025 End: 03-11-2025 No Primary Care Physician -Emergency Department Work Phone: Start: 03-11-2025 End: 03-11-2025 Emergency department patient visit No Primary Care Physician -Emergency Department Start: 03-10-2025 End: 03-10-2025 Dr. Roby Balderas MD -[facility] Work Phone: Start: 03-10-2025 End: 03-10-2025 ambulatory Roby Balderas Facility:[facility] Start: 03-04-2025 End: 03-04-2025 No Primary Care Physician -[facility] Work Phone: Start: 03-04-2025 End: 03-04-2025 ambulatory ADONIS HART Facility:[facility] Start: 02-27-2025 Dr. Rick gutierrez DO -[facility] Work Phone: Start: 02-26-2025 Dr. Rick gutierrez DO -[facility] Work Phone: Start: 02-25-2025 Niranjan Li DO -[facility] Start: 02-25-2025 End: 02-27-2025 ambulatory Kathie Powers Facility:[facility] Start: 02-25-2025 End: 02-27-2025 Dr. Rick Carlin DO -Progressive Care Unit Work Phone: Start: 02-24-2025 End: 02-25-2025 Julita Glover -[facility] Work Phone: Start: 02-24-2025 End: 02-25-2025 ambulatory Josy Elias Facility:[facility] Start: 02-17-2025 Niranjan Li DO -[facility] Start: 02-17-2025 Dr. Anurag Irene MD -[facility] Work Phone: Start: 02-16-2025 End: 02-17-2025 ambulatory Jae Ash Facility:[facility] Start: 02-16-2025 Evaluation and manag ement of inpatient No Primary Care Physician -Medical Surgical 3 Start: 02-16-2025 End: 02-17-2025 Dr. Jae Ash DO -Medical Surgical 3 Work Phone: Start: 02-16-2025 End: 02-16-2025 Dr. Jerald Sherwood MD -[facility] Start: 02-16-2025 End: 02-16-2025 ambulatory Jerald Sherwood Facility:[facility] Start: 02-14-2025 ambulatory NONE PHYSICIAN Facility :[facility] Start: 02-13-2025 End: 02-13-2025 No Primary Care Physician -Emergency Department Work Phone: Start: 02-13-2025 End: 02-13-2025 Emergency department patient visit No Primary Care Physician -Emergency Department Start: 02-11-2025 End: 02-11-2025 ambulatory No Primary Care Physician -[facility] Start: 02-11-2025 End: 02-11-2025 [facility] DO -[facility] Work Phone: Start: 02-11-2025 End: 02-11-2025 ambulatory [facility] Facility:[facility] Start: 02-07-2025 End: 02-08-2025 No Primary Care Physician -Emergency Department Work Phone: Start: 02-07-2025 End: 02-08-2025 Emergency department patient visit No Primary Care Physician -Emergency Department Start: 01-31-2025 Dr. Yaritza Leo DO -[facility] Work Phone: Start: 01-30-2025 Dr. Yaritza Leo DO -[facility] Work Phone: Start: 01-29-2025 Dr. Yaritza Leo DO -[facility] Work Phone: Start: 01-28-2025 ambulatory Boone Izquierdo Facility:[facility] Start: 01-28-2025 End: 01-31-2025 Evaluation and management of inpatient No Primary Care Physician [facility] Work Phone: Start: 01-28-2025 End: 01-31-2025 Dr. Boone Izquierdo DO [facility] Work Phone: Start: 01-21-2025 Dr. Anurag Murray [facility] Work Phone: Start: 01-20-2025 Dr. Anurag Murray [facility] Work Phone: Start: 01-[facility] Start: 01-18-2025 Dr. Anurag Irene MD [facility] Work Phone: Start: 01-17-2025 Dr. Anurag Irene MD [facility] Work Phone: Start: 01-16-2025 Dr. Cielo Tovar MD [facility] Work Phone: Start: 01-15-2025 Dr. Cielo Tovar MD [facility] Work Phone: Start: 01-14-2025 Dr. Cielo Tovar MD [facility] Work Phone: Start: 01-13-2025 Dr. Cielo Tovar MD [facility] Work Phone: Start: 01-12-2025 Dr. Cielo Tovar MD [facility] Work Phone: Start: 01-11-2025 Dr. Jefferson Malave MD - [facility] Start: 01-11-2025 Dr. Cielo Tovar MD [facility] Work Phone: Start: 01-11-2025 Dr. Bola Meraz DO -[facility] Start: 01-10-2025 Dr. Cielo Tovar MD [facility] Work Phone: Start: 01-09-2025 ambulatory Cielo Tovar Facility [facility] Start: 01-09-2025 End: 01-21-2025 Evaluation and management of inpatient No Primary Care Physician [facility] Work Phone: Start: 01-09-2025 End: 01-21-2025 Dr. Yaritza Leo DO -Intensive Care Unit Work Phone: Start: 01-05-2025 Dr. Hill Acuña MD -[facility] Work Phone: Start: 01-04-2025 Dr. Hill Acuña MD -[facility] Work Phone: Start: 01-03-2025 Dr. Hill Acuña MD -[facility] Work Phone: Start: 01-02-2025 ambulatory Buster Fuchs Fac ility:[facility] Start: 01-02-2025 End: 01-05-2025 Evaluation and management of inpatient No Primary Care Physician [facility] Work Phone: Start: 01-02-2025 End: 01-05-2025 Dr. Buster Fuchs MD -Progressive Care Unit Work Phone: Start: 12-30-2024 End: 12-30-2024 No Primary Care Physician -Emergency Department Work Phone: Start: 12-30-2024 End: 12-30-2024 Emergency department patient visit No Primary Care Physician [facility] Work Phone: Start: 12-26-2024 End: 12-26-2024 No Primary Care Physician -Emergency Department Work Phone: Start: 12-26-2024 End: 12-26-2024 Emergency department patient visit No Primary Care Physician [facility] Work Phone: Start: 12-15-2024 End: 12-15-2024 ambulatory No Primary Care Physician [facility] Work Phone: Start: 12-15-2024 End: 12-15-2024 Josy Elias NP-C -[facility] Work Phone: Start: 12-15-2024 End: 12-15-2024 ambulatory Josy Elias Facility:[facility] Start: 12-07-2024 End: 12-10-2024 ambulatory Eva Pichardo MD Work Phone: Urology Start: 12-07-2024 End: 12-07-2024 Josy Eilas NP-C -[facility] Start: 12-07-2024 End: 12-07-2024 ambulatory Josy Elias Facility:[facility] Start: 12-02-2024 Dr. Hill Acuña MD [...] Evaluation and management of inpatient Kathie Powers Facility:[facility] Start: 11-28-2024 End: 12-02-2024 Dr. Hill Acuña MD -Progressive Care Unit Work Phone: Start: 11-25-2024 Dr. Anurag Irene MD -[facility] Work Phone: Start: 11-24-2024 Dr. Anurag Irene MD -[facility] Work Phone: Start: 11-23-2024 ambulatory Jae Ash Fac ility[facility] Start: 11-23-2024 End: 11-25-2024 Evaluation and management of inpatient Jae Loedvin Facility:[facility] Start: 11-23-2024 End: 11-25-2024 Dr. Anurag Irene MD -Medical Surgical 3 Work Phone: Start: 11-22-2024 Dr. Anurag Irene MD -[facility] Work Phone: Start: 11-21-2024 ambulatory Jae Ash Fac ility[facility] Start: 11-21-2024 observation encounter No Prima ry Care Physician [facility] Work Phone: Start: 11-21-2024 Dr. Jae Ash DO -Medical Surgical 3 Work Phone: Start: 11-18-2024 Patient encounter status Jeremi Morgano RN Work Phone: [facility] Work Phone: Start: 11-18-2024 End: 11-18-2024 Telephone encounter Jeremi Abreu RN Work Phone: Transplant Center Comment on above: Outcome Liver Transp lant Selection Committee Start: 11-15-2024 End: 11-15-2024 Evaluation and management of inpatient Izabela Harvey DDS Work Phone: Dentistry Comment on above: Liver transplant can didate (Primary Dx); Pre-operative clearance Start: 11-15-2024 End: 11-15-2024 Preoperative state Izabela Harvey DDS Work Phone: [facility] Start: 11-15-2024 End: 11-15-2024 Social Work Marah Helwellington WELFARE CENTRE MANAGER Work Phone: Transplant Center Start: 11-12-2024 End: 11-12-2024 Patient encounter status Lizett Guzman [facility] Start: 11-12-2024 End: 11-12-2024 Orders Only Liver Txp Coordinator Work Phone: Transplant Center Comment on above: 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 Kathie Powers MD -[facility] Work Phone: Start: 11-09-2024 Dr. Kathie Powers MD -[facility] Work Phone: Start: 11-08-2024 Dr. Kathie Powers MD -[facility] Work Phone: Start: 11-07-2024 Dr. Hill Acuña MD -[facility] Work Phone: Start: 11-06[facility] Start: 11-05-2024 Dr. Hill Acuña MD -[facility] Work Phone: Start: 11-04-2024 Dr. Hill Acuña MD -[facility] Work Phone: Start: 11-03-2024 Dr. Hill Acuña MD -[facility] Work Phone: Start: 11-02-2024 Dr. Hill Acuña MD -[facility] Work Phone: Start: 11-01-2024 Dr. Hill Acuña MD -[facility] Work Phone: Start: 11-01-2024 Niranjan [facility] Start: 10-31-2024 Dr. Buster Fuchs MD -[facility] Work Phone: Start: 10-30-2024 Niranjan [facility] Start: 10-30-2024 Dr. Buster Fuchs MD [facility] Work Phone: Start: 10-29-2024 Dr. Bola Meraz DO [facility] Start: 10-29-2024 ambulatory Buster Fuchs Fac ility:[facility] Start: 10-29-2024 End: 11-11-2024 Evaluation and management of inpatient Dr. Hill Caro DO -Intensive Care Unit Work Phone: Start: 10-29-2024 End: 11-11-2024 Dr. Kathie Powers MD -Progressive Care Unit Work Phone: Start: 10-19-2024 ambulatory ADONIS HART Facility: [facility] Start: 10-04-2024 End: 10-04-2024 Emergency department patient visit MAURICE RINCON [facility] Emergency Medicine Comment on above: Other ascites (Prima ry Dx); Abdominal pain, generalized; Other cirrhosis of liver; Peripheral edema; Coagulopathy (Multi); Hyperbilirubinemia; Cirrhosis of liver with ascites, unspecified hepatic cirrhosis type (Multi) Start: 09-29-2024 ambulatory [facility] Facility: [facility] Start: 09-29-2024 Non-patient / Non-visit Jasmine nunez MERCHANDISING ASSISTANT-C -[facility] Start: 09-29-2024 Jasmine Morocho MERCHANDISING ASSISTANT-C - [facility] Start: 09-29-2024 End: 09-29-2024 ambulatory No Primary Care Physician [facility] Work Phone: Start: 09-29-2024 End: 09-29-2024 Patient encounter procedure No Primary Care Physician -Ultrasound, [facility] Work Phone: Start: 09-29-2024 End: 09-29-2024 No Primary Care Physician -Ultrasound, [facility] Work Phone: Start: 09-29-2024 End: 09-29-2024 ambulatory [facility] Facility:[facility] Start: 09-14-2024 Non-patient / Non-visit Dr. Boone James [facility] In[facility]icians Work Phone: Start: 09-14-2024 Dr[facility] Work Phone: Start: 09-13-2024 Non-patient / Non-visit Dr. Boone James [facility] In[facility] Work Phone: Start: 09-13-2024 Dr. Boone Izquierdo [facility] Inpatient Physicians Work Phone: Start: 09-12-2024 Non-patient / Non-visit Dr. Noonan [facility] Work Phone: Start: 09-12-2024 Dr. Jae Ash [facility] Work Phone: Start: 09-11-2024 Non-patient / Non-visit Dr. Noonan [facility] Work Phone: Start: 09-11-2024 Dr. Jae Ash [facility] Work Phone: Start: 09-10-2024 Non-patient / Non-visit Dr. Noonan [facility] Work Phone: Start: 09-10-2024 Dr. Rowe [facility] In[facility] Work Phone: Start: 09-09-2024 Non-patient / Non-visit Dr. Slaughter [facility] Work Phone: Start: 09-09-2024 Dr. Jae Ash [facility] Work Phone: Start: 09-08-2024 Non-patient / Non-visit Dr. Anurag Irene [facility] Inpatient Physicians Work Phone: Start: 09-08-2024 Dr. Anurag Irene [facility] Inpatient Physicians Work Phone: Start: 09-07-2024 Non-patient / Non-visit Dr. Anurag Irene MD [facility] Inpatient [facility] Work Phone: Start: 09-07-2024 Dr. Anurag Irene [facility] Inpatient Phys[facility] Work Phone: Start: 09-06-2024 Non-patient / Non-visit Dr. Anurag Irene [facility] In[facility] Work Phone: Start: 09-06-2024 Dr. Anurag Irene MD [facility] Inpatient [facility] Work Phone: Start: 09-05-2024 ambulatory Boone Izquierdo [facility] Start: 09-05-2024 End: 09-15-2024 Evaluation and management of inpatient Dr. Boone Izquierdo DO -Progressive Care Unit Work Phone: Start: 09-05-2024 End: 09-15-2024 Dr. Boone Izquierdo -Progressive Care Unit Work Phone: Start: 09-02-2024 Non-patient / Non-visit Dr. Lissette Carlin [facility] Work Phone: Start: 09-02-2024 Dr. Rick gutierrez [facility] Work Phone: Start: 09-01-2024 Non-patient / Non-visit Niranjan Frie nd DO -[facility] Start: 09-01-2024 Niranjan Friend DO -[facility] Start: 09-01-2024 Non-patient / Non-visit Dr. Lissette Carlin [facility] Work Phone: Start: 09-01-2024 Dr. Rick gutierrez [facility] Work Phone: Start: 08-31-2024 Non-patient / Non-visit Niranjan Frie nd DO -[facility] Start: 08-31-2024 Niranjan Friend DO -[facility] Start: 08-31-2024 Non-patient / Non-visit Dr. Lissette Carlin [facility] Work Phone: Start: 08-31-2024 Dr. Rick gutierrez [facility] Work Phone: Start: 08-31-2024 Non-patient / Non-visit Dr. Bola Patiño own DO -[facility] Start: 08-31-2024 Dr. Bola Meraz DO -[facility] Start: 08-30-2024 Non-patient / Non-visit Niranjan Frie nd DO -[facility] Start: 08-30-2024 Niranjan Friend DO -[facility] Start: 08-30-2024 Non-patient / Non-visit Dr. Lissette Carlin [facility] Work Phone: Start: 08-30-2024 Dr. Rick gutierrez [facility] Work Phone: Start: 08-30-2024 Non-patient / Non-visit Dr. Bola Patiño own DO -[facility] Start: 08-30-2024 Dr. Bola Meraz DO -[facility] Start: 08-29-2024 [facility] Facility :[facility] Start: 08-29-2024 End: 09-02-2024 Evaluation and management of inpatient Dr. Rick Carlin -Intensive Care Unit Work Phone: Start: 08-29-2024 End: 09-02-2024 Dr. Rick Carlin DO -Intensive Care Unit Work Phone: Start: 08-21-2024 End: 08-21-2024 Dr. Danny Hutton DO -Emergency Department Work Phone: Start: 08-21-2024 End: 08-21-2024 Emergency department [facility]: Procedures Date Procedure Procedure Detail Performing Clinician Start: 04-10-2025 Blood count smear mc rscp w/mnl difrntl wbc count Josy Elias MERCHANDISING ASSISTANT-C Work Phone: Start: 04-10-2025 Estimated creatinine clearance Josy Elias MERCHANDISING ASSISTANT-C Work Phone: Start: 04-10-2025 Mean corpuscular hem oglobin concentration determination Josy Elias MERCHANDISING ASSISTANT-C Work Phone: Start: 04-10-2025 Nucleated red blood cell count procedure Josy Elias MERCHANDISING ASSISTANT-C Work Phone: Start: 04-10-2025 Platelet mean volume determination Josy Elias MERCHANDISING ASSISTANT-C Work Phone: Start: 04-09-2025 Urine microscopy: red cells Josy Elias MERCHANDISING ASSISTANT-C Work Phone: Start: 04-09-2025 Urnls dip stick/tabl et reagent auto microscopy Josy Elias MERCHANDISING ASSISTANT-C Work Phone: Start: 04-07-2025 Urine microscopy: red cells Josy Elias MERCHANDISING ASSISTANT-C Work Phone: Start: 04-07-2025 Urnls dip stick/tabl et reagent auto microscopy Josy Elias MERCHANDISING ASSISTANT-C Work Phone: Start: 04-07-2025 Blood count smear mc rscp w/mnl difrntl wbc count Josy Elias MERCHANDISING ASSISTANT-C Work Phone: Start: 04-07-2025 Mean corpuscular hem oglobin concentration determination Josy Elias MERCHANDISING ASSISTANT-C Work Phone: Start: 04-07-2025 Nucleated red blood cell count procedure Josy Elias MERCHANDISING ASSISTANT-C Work Phone: Start: 04-07-2025 Platelet mean volume determination Josy Elias MERCHANDISING ASSISTANT-C Work Phone: Start: 04-07-2025 Serum inorganic phos phate measurement Josy Obrien MERCHANDISING ASSISTANT-C Work Phone: Start: 04-07-2025 Triacylglycerol lipa se measurement Josy Obrien MERCHANDISING ASSISTANT-C Work Phone: Start: 04-07-2025 Nucleic acid assay Terrance Obrien MERCHANDISING ASSISTANT-C Work Phone: Start: 04-07-2025 Sars-cov-2 Josy Espitia nhof MERCHANDISING ASSISTANT-C Work Phone: Start: 04-07-2025 Urine culture Josy centenof MERCHANDISING ASSISTANT-C Work Phone: Start: 03-11-2025 Blood count smear [...] Physician Start: 01-28-2025 Assay of lactate No [facility] Care Physician Start: 01-28-2025 Computed tomography of [...] Physician Start: 11-28-2024 Assay of lactate No [facility] Care Physician Start: 11-28-2024 Urine [...] culture No Primar y Care Physician Start: 04-20-2025 Assay of lactate No Ivonne alex Care Physician Start: 11-21-2024 Urine microscopy: red cells No Primary Care Physician Start: 11-21-2024 Urnls dip stick/tabl et reagent auto microscopy No Primary Care Physician Start: 11-21-2024 Plain chest X-ray No [facility] Care Physician Start: 11-18-2024 Antibody screen KATHIE P IERCE Comment on above: Order Comment: Speci men Type: BLOOD SPECIMENOrdering Facility: [facility] Address: [address] [place] [address] Performed By: #### T SCR ####CC MAIN BLOOD BANKCLIA [id number] [address] Start: 11-16-2024 End: 11-16-2024 Oscar Abreu RN Work Phone: Start: 11-15-2024 Antibody screen KATHIE P IERCE Comment on above: Order Comment: Speci men Type: BLOOD SPECIMENOrdering Facility: [facility] Address: [address] [place] [address] Performed By: #### T SCR ####CC MAIN BLOOD BANKCLIA [id number] [address] Start: 11-13-2024 Lipid 1996 panel - S sandie or Plasma Marah Arauz WELFARE CENTRE MANAGER Work Phone: Start: 11-12-2024 Antibody screen KATHIE P IERCE Comment on above: Order Comment: Speci men Type: BLOOD SPECIMENOrdering Facility: [facility] Address: [address] [place] [address] Performed By: #### T SCR ####CC MAIN BLOOD BANKCLIA [id number] [address] Start: 11-10-2024 Urine microscopy: red cells No Primary Care Physician Start: 11-10-2024 Urnls dip stick/tabl et reagent auto microscopy No Primary Care Physician Start: 11-10-2024 Calculation of inter national normalized ratio No Primary Care Physician Start: 11-10-2024 Blood count smear mc rs w/mnl difrntl wbc count No Primary [...] Physician Start: 11-09-2024 Assay of lactate No [facility] Care [facility] Start: 11-08-2024 Serum [...] 10-04-2024 Abdom paracentesis d x/ther w/imaging guidance oJey Huang DO Work Phone: Start: 10-04-2024 Cell [...] Ct abdomen & pelvis w/contrast material Sriram Manocchio PA-C Work Phone: Start: 10-04-2024 Basic metabolic pane l calcium total Sriram Manocchio PA-C Work Phone: Start: 09-29-2024 Centesis No [...] Physician Start: 09-05-2024 Assay of lactate No [facility] Care Physician Start: 09-05-2024 Folic [...] DTaP,Tdap,Td Vaccine (2 - Td or Tdap) [facility] Start: 11-17-2029 Prostate specific antigen measurement Prostate Cancer Screening Discussion [facility] Start: 11-13-2029 Lipid panel Lipid Screening [facility] Start: 11-19-2027 Diabetes Screening Diabetes Screening [facility] Start: 11-17-2027 Diabetes Screening Diabetes Screening [facility] Start: 11-15-2027 Diabetes Screening Diabetes Screening [facility] Start: 11-13-2027 Diabetes Screening Diabetes Screening [facility] Start: 11-18-2025 Creatinine measurement Serum Creatinine [facility] Start: 11-16-2025 Creatinine measurement Serum Creatinine [facility] Start: 11-16-2025 Screening for malignant neoplasm of colon [facility] Start: 11-15-2025 Creatinine measurement Serum Creatinine [facility] Start: 11-12-2025 Creatinine measurement Serum Creatinine [facility] Start: 05-16-2025 Hepatitis A Vaccine (2 of 2 - Risk 2-dose series) Hepatitis A Vaccine (2 of 2 - Risk 2-dose series) [facility] Start: 04-10-2025 Patient discharge [facility] Start: 04-09-2025 Referral to service [facility] Start: 04-09-2025 [facility] Start: 04-09-2025 [facility] Start: 04-08-2025 Care planning and problem solving actions [facility] Start: 04-08-2025 Respiratory secretion precautions [facility] Start: 04-08-2025 Aspiration precautions [facility] Start: 04-08-2025 Assessment of risk of venous thromboembolism [facility] Start: 04-08-2025 Care regimes management [facility] Start: 04-08-2025 Fall prevention [facility] Start: 04-08-2025 Inhalation therapy procedure [facility] Start: 04-08-2025 Insertion of catheter into peripheral vein [facility] Start: 04-08-2025 Introduction of urinary catheter [facility] Start: 04-08-2025 Measuring intake and output [facility] Start: 04-08-2025 Notification of physician [facility] Start: 04-08-2025 Oxygen therapy [facility] Start: 04-08-2025 Providing care according to standard [facility] Start: 04-08-2025 Provision of activity privileges [facility] Start: 04-08-2025 Referral to occupational therapist [facility] Start: 04-08-2025 Referral to service [facility] Start: 04-07-2025 Following clinical pathway protocol [facility] Start: 04-07-2025 End: 04-08-2025 [facility] Start: 04-07-2025 Sars-cov-2 [facility] Start: 04-07-2025 Verification routine [facility] Start: 04-07-2025 Hospital admission, emergency, from emergency room, medical nature [facility] Start: 04-07-2025 Admission procedure [facility] Start: 04-07-2025 [facility] Start: 04-03-2025 [facility] Start: 03-30-2025 Anesthesia closed chest w/bronchoscopy nos [facility] Start: 03-30-2025 Insertion indwelling tunneled pleural catheter [facility] Start: 03-30-2025 Patient discharge [facility] Start: 03-11-2025 [facility] Start: 03-04-2025 Following clinical pathway protocol [facility] Start: 03-02-2025 End: 03-02-2025 Patient encounter procedure 03/02/2025 2:20 PM EDT Office Visit [facility] [address] [place] [id number] Alex Alexandre MD [address] [place] [address] Hospital discharge, diabetes mx, need for repeat vaccines, and consideration of CT chest [facility] Comment on above: Hospital discharge, diabetes mx, need fo r repeat vaccines, and consideration of CT chest Start: 02-27-2025 Patient discharge [facility] Start: 02-26-2025 [facility] Start: 02-26-2025 Referral to occupational therapist [facility] Start: 02-26-2025 Referral to service [facility] Start: 02-25-2025 Following clinical pathway protocol [facility] Start: 02-25-2025 Assessment of risk of venous thromboembolism [facility] Start: 02-25-2025 Care regimes management [facility] Start: 02-25-2025 Inhalation therapy procedure [facility] Start: 02-25-2025 Insertion of catheter into peripheral vein [facility] Start: 02-25-2025 Measuring intake and output [facility] Start: 02-25-2025 Notification of physician [facility] Start: 02-25-2025 Providing care according to standard [facility] Start: 02-25-2025 Provision of activity privileges [facility] Start: 02-25-2025 Referral to gastroenterology service [facility] Start: 02-25-2025 Referral to service [facility] Start: 02-25-2025 End: 02-25-2025 [facility] Start: 02-25-2025 Admission procedure [facility] Start: 02-25-2025 Patient referral to dietitian [facility] Start: 02-17-2025 [facility] Start: 02-17-2025 Referral to service [facility] Start: 02-17-2025 Admission procedure [facility] Start: 02-17-2025 Referral to occupational therapist [facility] Start: 02-17-2025 Referral to service [facility] Start: 02-17-2025 Patient discharge [facility] Start: 02-16-2025 Application of intermittent pneumatic compression device [facility] Start: 02-16-2025 Ambulation without limitation [facility] Start: 02-16-2025 Assessment of risk of venous thromboembolism [facility] Start: 02-16-2025 Incentive spirometry [facility] Start: 02-16-2025 Insertion of catheter into peripheral vein [facility] Start: 02-16-2025 Measuring intake and output [facility] Start: 02-16-2025 Oxygen therapy [facility] Start: 02-16-2025 Providing care according to standard [facility] Start: 02-16-2025 Referral to gastroenterology service [facility] Start: 02-16-2025 Referral to service [facility] Start: 02-16-2025 [facility] Start: 02-16-2025 Care of central venous catheter [facility] Start: 02-16-2025 Following clinical pathway protocol [facility] Start: 02-16-2025 Prothrombin time [facility] Start: 02-16-2025 Hospital admission, emergency, from emergency room, medical nature [facility] Start: 02-16-2025 Verification routine [facility] Start: 02-16-2025 Admission procedure [facility] Start: 02-16-2025 Acute hepatitis panel [facility] Start: 02-16-2025 Assay of ammonia [facility] Start: 02-16-2025 Collection venous blood venipuncture [facility] Start: 02-16-2025 Patient referral to dietitian [facility] Start: 02-13-2025 [facility] Start: 02-13-2025 Assay of lipase [facility] Start: 02-13-2025 Blood count complete auto&auto difrntl wbc [facility] Start: 02-13-2025 Comprehensive metabolic panel [facility] Start: 02-13-2025 Ct abdomen & pelvis w/contrast material [facility] Start: 02-13-2025 Emergency dept visit high severity&threat funcj [facility] Start: 02-13-2025 Ther proph/dx njx iv push single/1st sbst/drug [facility] Start: 02-13-2025 Therapeutic injection iv push each new drug [facility] Start: 02-08-2025 Centesis [facility] Start: 02-08-2025 End: 02-08-2025 [facility] Start: 02-02-2025 End: 02-02-2025 Patient encounter procedure 02/02/2025 9:20 AM EDT Office Visit [facility] [address] [place] [address] Ray Vega MD [address] [place] [address] est care [facility] Comment on above: est care Start: 01-31-2025 Patient discharge [facility] Start: 01-31-2025 Referral to service [facility] Start: 01-31-2025 [facility] Start: 01-29-2025 [facility] Start: 01-28-2025 Blood culture [facility] Start: 01-28-2025 Application of intermittent pneumatic compression device [facility] Start: 01-28-2025 Following clinical pathway protocol [facility] Start: 01-28-2025 Assessment of risk of venous thromboembolism [facility] Start: 01-28-2025 Care regimes management [facility] Start: 01-28-2025 Documentation procedure [facility] Start: 01-28-2025 Insertion of catheter into peripheral vein [facility] Start: 01-28-2025 Notification of physician [facility] Start: 01-28-2025 Providing care according to standard [facility] Start: 01-28-2025 Provision of activity privileges [facility] Start: 01-28-2025 Referral to occupational therapist [facility] Start: 01-28-2025 Referral to service [facility] Start: 01-28-2025 Speech therapy assessment [facility] Start: 01-28-2025 End: 01-28-2025 [facility] Start: 01-28-2025 Admission procedure [facility] Start: 01-28-2025 End: 01-28-2025 [facility] Start: 01-28-2025 End: 01-28-2025 [facility] Start: 01-28-2025 [facility] Start: 01-21-2025 Patient discharge [facility] Start: 01-18-2025 End: 01-18-2025 Microbial culture, body fluid [facility] Start: 01-18-2025 Care planning and problem solving actions [facility] Start: 01-18-2025 Anaerobic microbial culture [facility] Start: 01-17-2025 [facility] Start: 01-16-2025 [facility] Start: 01-15-2025 [facility] Start: 01-14-2025 Consultation for pain [facility] Start: 01-14-2025 [facility] Start: 01-13-2025 Administration of blood product [facility] Start: 01-13-2025 [facility] Start: 01-12-2025 [facility] Start: 01-11-2025 Application of intermittent pneumatic compression device [facility] Start: 01-11-2025 Referral to general surgeon [facility] Start: 01-11-2025 [facility] Start: 01-10-2025 Care planning and problem solving actions [facility] Start: 01-09-2025 Assessment of risk of venous thromboembolism [facility] Start: 01-09-2025 Cardiac monitoring [facility] Start: 01-09-2025 Catheterization of vein [facility] Start: 01-09-2025 Inhalation therapy procedure [facility] Start: 01-09-2025 Insertion of catheter into peripheral vein [facility] Start: 01-09-2025 Measuring intake and output [facility] Start: 01-09-2025 Notification of physician [facility] Start: 01-09-2025 Patient referral to dietitian [facility] Start: 01-09-2025 Providing care according to standard [facility] Start: 01-09-2025 Referral to occupational therapist [facility] Start: 01-09-2025 Referral to service [facility] Start: 01-09-2025 Vital signs measurements [facility] Start: 01-09-2025 [facility] Start: 01-09-2025 End: 01-09-2025 Following clinical pathway protocol [facility] Start: 01-09-2025 Bacterial nucleic acid assay [facility] Start: 01-09-2025 Verification routine [facility] Start: 01-09-2025 Admission procedure [facility] Start: 01-09-2025 Hospital admission, emergency, from emergency room, medical nature [facility] Start: 01-09-2025 End: 01-09-2025 [facility] Start: 01-09-2025 Consultation [facility] Start: 01-05-2025 Patient discharge [facility] Start: 01-04-2025 [facility] Start: 01-03-2025 End: 01-03-2025 [facility] Start: 01-03-2025 End: 01-03-2025 Care regimes management [facility] Start: 01-03-2025 Notification of physician [facility] Start: 01-03-2025 [facility] Start: 01-02-2025 Application of intermittent pneumatic compression device [facility] Start: 01-02-2025 Ambulation without limitation [facility] Start: 01-02-2025 Assessment of risk of venous thromboembolism [facility] Start: 01-02-2025 Care regimes management [facility] Start: 01-02-2025 Insertion of catheter into peripheral vein [facility] Start: 01-02-2025 Measuring intake and output [facility] Start: 01-02-2025 Notification of physician [facility] Start: 01-02-2025 Providing care according to standard [facility] Start: 01-02-2025 Referral to occupational therapist [facility] Start: 01-02-2025 Referral to service [facility] Start: 01-02-2025 End: 01-02-2025 [facility] Start: 01-02-2025 Admission procedure [facility] Start: 01-02-2025 Verification routine [facility] Start: 01-02-2025 Hospital admission, emergency, from emergency room, medical nature [facility] Start: 01-02-2025 End: 01-02-2025 [facility] Start: 01-02-2025 Consultation [facility] Start: 01-02-2025 Patient referral to dietitian [facility] Start: 12-30-2024 Assay of magnesium [facility] Start: 12-30-2024 Assay of troponin quantitative [facility] Start: 12-30-2024 Basic metabolic panel calcium total [facility] Start: 12-30-2024 Blood count complete auto&auto difrntl wbc [facility] Start: 12-30-2024 Culture bacterial quanttative colony count urine [facility] Start: 12-30-2024 Culture bct isol&prsmptv id isolate ea urine [facility] Start: 12-30-2024 Ecg routine ecg w/least 12 lds trcg only w/o i&r [facility] Start: 12-30-2024 Emergency department visit high/urgent severity [facility] Start: 12-30-2024 Gluc bld gluc mntr dev cleared fda spec home use [facility] Start: 12-30-2024 Iv infusion hydration each additional hour [facility] Start: 12-30-2024 Iv infusion therapy/prophylaxis /dx 1st to 1 hr [facility] Start: 12-30-2024 Radiologic exam chest 2 views [facility] Start: 12-30-2024 Urnls dip stick/tablet reagent auto microscopy [facility] Start: 12-30-2024 [facility] Start: 12-30-2024 End: 12-30-2024 [facility] Start: 12-29-2024 End: 12-29-2024 Patient encounter procedure Endocrinology Comment on above: Diabetes maangement Diabetes maangement/ LVM OF SOONER APPOINTMENT 11/21 Start: 12-26-2024 [facility] Start: 12-26-2024 End: 12-26-2024 [facility] Start: 12-23-2024 End: 12-23-2024 Patient encounter procedure 12/23/2024 9:45 AM EDT Office Visit Vascular Medicine [address] [place] [address] Pamella Frances, NETWORK DEVELOPER.LODGING MANAGER [address] [place] [address] HOSPITAL FOLLOW UP [facility] Medicine Comment on above: HOSPITAL FOLLOW UP Start: 12-12-2024 Hepatitis B Vaccine (2 of 2 - CpG 2-dose series) Hepatitis B Vaccine (2 of 2 - CpG 2-dose series) [facility] Start: 12-07-2024 End: 12-07-2024 Patient encounter procedure 12/07/2024 3:45 PM EDT Office Visit Urology [address] [address] Eva Pichardo MD [address] [place] [id number] L ureteral stent, s/p staghorn calculi [facility] Comment on above: L ureteral stent, s/p staghorn calculi Start: 12-07-2024 End: 12-07-2024 Patient encounter procedure 12/07/2024 11:20 AM EDT Office Visit [facility] [address] [place] [address] Ksenia Hoyos, NETWORK DEVELOPER.LODGING MANAGER [address] [place] [address] Hospital discharge, diabetes mx, need for repeat vaccines, and consideration of CT chest [facility] Comment on above: Hospital discharge, diabetes mx, need fo r repeat vaccines, and consideration of CT chest Start: 12-02-2024 Patient discharge [facility] Start: 12-01-2024 Consultation [facility] Start: 11-29-2024 [facility] Start: 11-28-2024 Enteric precautions [facility] Start: 11-28-2024 Application of intermittent pneumatic compression device [facility] Start: 11-28-2024 Following clinical pathway protocol [facility] Start: 11-28-2024 Assessment of risk of venous thromboembolism [facility] Start: 11-28-2024 Care regimes management [facility] Start: 11-28-2024 Insertion of catheter into peripheral vein [facility] Start: 11-28-2024 Measuring intake and output [facility] Start: 11-28-2024 Notification of physician [facility] Start: 11-28-2024 Providing care according to standard [facility] Start: 11-28-2024 Provision of activity privileges [facility] Start: 11-28-2024 Referral to occupational therapist [facility] Start: 11-28-2024 Referral to service [facility] Start: 11-28-2024 End: 11-28-2024 [facility] Start: 11-28-2024 Admission procedure [facility] Start: 11-28-2024 Inhalation therapy procedure [facility] Start: 11-28-2024 Patient referral to dietitian [facility] Start: 11-25-2024 Patient discharge [facility] Start: 11-24-2024 Administration of blood product [facility] Start: 11-23-2024 Admission procedure [facility] Start: 11-22-2024 [facility] Start: 11-21-2024 Care regimes management [facility] Start: 11-21-2024 Notification of physician [facility] Start: 11-21-2024 Following clinical pathway protocol [facility] Start: 11-21-2024 Ambulation without limitation [facility] Start: 11-21-2024 Assessment of risk of venous thromboembolism [facility] Start: 11-21-2024 Insertion of catheter into peripheral vein [facility] Start: 11-21-2024 Measuring intake and output [facility] Start: 11-21-2024 Providing care according to standard [facility] Start: 11-21-2024 Referral to occupational therapist [facility] Start: 11-21-2024 Referral to service [facility] Start: 11-21-2024 End: 11-21-2024 [facility] Start: 11-21-2024 Verification routine [facility] Start: 11-21-2024 Admission procedure [facility] Start: 11-21-2024 Hospital admission, emergency, from emergency room, medical nature [facility] Start: 11-21-2024 End: 11-21-2024 [facility] Start: 11-21-2024 Consultation [facility] Start: 11-18-2024 End: 11-18-2024 Patient encounter procedure 11/18/2024 3:30 PM EDT Office Visit Cardiology [address] [place] [address] G81-25; Liver Tx Evaluation; CONTACT PRECAUTIONS - C-Diff; last of the day Cardiology Comment on above: G81-25; Liver Tx Evaluation; CONTACT PRECAUTIONS - C-Diff; last of the day Start: 11-17-2024 End: 11-17-2024 Patient encounter procedure Pulmonary Medicine Comment on above: C-diff precuations/RA-2L/Reg WC Start: 11-15-2024 End: 11-15-2024 Patient encounter procedure 11/15/2024 1:15 PM EDT Office Visit Dentistry [address] [id number] Izabela Harvey, DDS [address] [place] [address] BEDSIDE - TRANSPLANT [facility] - [id number] - Consult Placed 11/12/24 Dentistry Comment on above: BEDSIDE - TRANSPLANT [facility] - G081-25 [id number] - Consult Placed 11/12/24 Start: 11-10-2024 Patient discharge [facility] Start: 11-09-2024 Consultation [facility] Start: 11-09-2024 Referral to gastroenterology service [facility] Start: 11-09-2024 Glucose measurement, body fluid [facility] Start: 11-08-2024 Urinary bladder residual urine study [facility] Start: 11-08-2024 [facility] Start: 11-05-2024 Removal of urinary catheter [facility] Start: 11-04-2024 [facility] Start: 10-31-2024 [facility] Start: 10-30-2024 Attention to flatus tube [facility] Start: 10-30-2024 Referral to gastroenterology service [facility] Start: 10-29-2024 Insertion of nasogastric tube [facility] Start: 10-29-2024 Bacteria identified in Blood by Culture Blood Culture [facility] Start: 10-29-2024 Referral to service [facility] Start: 10-29-2024 Application of intermittent pneumatic compression device [facility] Start: 10-29-2024 Following clinical pathway protocol [facility] Start: 10-29-2024 Cardiac monitoring [facility] Start: 10-29-2024 Catheterization of vein [facility] Start: 10-29-2024 Enteric precautions [facility] Start: 10-29-2024 Notification of physician [facility] Start: 10-29-2024 Vital signs measurements [facility] Start: 10-29-2024 [facility] Start: 10-29-2024 End: 10-29-2024 Consultation [facility] Start: 10-29-2024 Clostridioides difficile DNA [Presence] in Unspecified specimen by ANANTH with probe detection [facility] Start: 10-29-2024 Complete ultrasound of kidneys and bladder Kidney and Bladder [facility] Start: 10-29-2024 Lactoferrin [Presence] in Stool by Immunoassay [facility] Start: 10-29-2024 Nucleic acid assay [facility] Start: 10-29-2024 Admission procedure [facility] Start: 10-29-2024 End: 10-29-2024 Hospital admission, emergency, from emergency room, medical nature [facility] Start: 10-29-2024 End: 10-29-2024 [facility] Start: 10-29-2024 Patient referral to dietitian [facility] Start: 10-28-2024 [facility] Start: 10-28-2024 Bacteria identified in Urine by Culture Urine Culture [facility] Start: 09-14-2024 Patient discharge [facility] Start: 09-06-2024 Referral to service [facility] Start: 09-06-2024 Referral to occupational therapist [facility] Start: 09-06-2024 Referral to account planner [facility] Start: 09-06-2024 Consultation [facility] Start: 09-06-2024 Care planning and problem solving actions [facility] Start: 09-06-2024 [facility] Start: 09-05-2024 Application of intermittent pneumatic compression device [facility] Start: 09-05-2024 Continuous positive airway pressure ventilation treatment [facility] Start: 09-05-2024 Cardiac monitoring [facility] Start: 09-05-2024 Care regimes management [facility] Start: 09-05-2024 Catheterization of vein [facility] Start: 09-05-2024 Consultation [facility] Start: 09-05-2024 Notification of physician [facility] Start: 09-05-2024 Vital signs measurements [facility] Start: 09-05-2024 End: 09-05-2024 [facility] Start: 09-05-2024 Following clinical pathway protocol [facility] Start: 09-05-2024 Admission procedure [facility] Start: 09-05-2024 [facility] Start: 09-02-2024 Patient discharge [facility] Start: 08-31-2024 Care planning and problem solving actions [facility] Start: 08-30-2024 [facility] Start: 08-29-2024 Following clinical pathway protocol [facility] Start: 08-29-2024 Assessment of risk of venous thromboembolism [facility] Start: 08-29-2024 Care regimes management [facility] Start: 08-29-2024 Fall prevention [facility] Start: 08-29-2024 Inhalation therapy procedure [facility] Start: 08-29-2024 Insertion of catheter into peripheral vein [facility] Start: 08-29-2024 Measuring intake and output [facility] Start: 08-29-2024 Notification of physician [facility] Start: 08-29-2024 Patient referral to [facility] Start: 08-29-2024 Providing care according to standard [facility] Start: 08-29-2024 Provision of activity privileges [facility] Start: 08-29-2024 Referral to gastroenterology service [facility] Start: 08-29-2024 Referral to account planner [facility] Start: 08-29-2024 Referral to occupational therapist [facility] Start: 08-29-2024 Referral to service [facility] Start: 08-29-2024 Vital signs measurements [facility] Start: 08-29-2024 End: 08-29-2024 [facility] Start: 08-29-2024 Admission procedure [facility] Start: 08-21-2024 [facility] Start: 04-04-2024 COVID-19 Vaccine ( season) COVID-19 Vaccine ( season) [facility] Start: 04-04-2024 Influenza vaccination Influenza Vaccine (#1) [facility] Start: 2021 Prostate specific antigen measurement Prostate Cancer Screening Discussion [facility] Start: 2016 Zoster Vaccines (1 of 2) Zoster Vaccines (1 of 2) [facility] Start: 2011 Screening for malignant neoplasm of colon [facility] Start: 2001 Lipid panel Lipid Screening [facility] Start: 1988 DTaP/Tdap/Td Vaccines (1 - Tdap) DTaP/Tdap/Td Vaccines (1 - Tdap) [facility] Start: 1985 Hepatitis A Vaccine (1 of 2 - Risk 2-dose series) Hepatitis A Vaccine (1 of 2 - Risk 2-dose series) [facility] Start: 1985 Hepatitis A Vaccines (1 of 2 - Risk 2-dose series) Hepatitis A Vaccines (1 of 2 - Risk 2-dose series) [facility] Start: 1985 Hepatitis B Vaccine (1 of 3 - 19+ 3-dose series) Hepatitis B Vaccine (1 of 3 - 19+ 3-dose series) [facility] Start: 1985 Hepatitis B Vaccines (1 of 3 - 19+ 3-dose series) Hepatitis B Vaccines (1 of 3 - 19+ 3-dose series) [facility] Start: 1985 Pneumococcal vaccination Pneumococcal Vaccine (1 of 2 - PCV) [facility] Start: 1985 Pneumococcal Vaccine: 50+ (1 of 2 - PCV) Pneumococcal Vaccine: 50+ (1 of 2 - PCV) [facility] Start: 1985 Shingrix Vaccine (1 of 2) Shingrix Vaccine (1 of 2) [facility] Start: 1985 Urine microalbumin profile DTaP,Tdap,Td Vaccine (1 - Tdap) [facility] Start: 1984 Annual PCP Team Chronic Disease Visit Annual PCP Team Chronic Disease Visit [facility] Start: 1984 Anxiety Screening Anxiety Screening [facility] Start: 1984 Depression Screening Depression Screening [facility] Start: 1984 Hepatitis C screening Hepatitis C Screening [facility] Start: 1984 HIV screening HIV Screening [facility] Start: 1976 Glaucoma screening Diabetes: Retinopathy Screening [facility] Start: 1967 MMR Vaccines (1 of 1 - Standard series) MMR Vaccines (1 of 1 - Standard series) [facility] Start: 1966 Hemoglobin A1c measurement Diabetes: Hemoglobin A1C [facility] Start: 1966 HIV screening HIV Screening [facility] Start: 1966 Lipid panel Lipid Panel [facility] Start: 1966 Screening for malignant neoplasm of colon [facility] Start: 1966 Urine screening for protein Diabetes: Urine Protein Screening [facility] Start: 1966 Yearly Adult Physical Yearly Adult Physical [facility] Alanine aminotransfe rase [Enzymatic activity/volume] in Serum or Plasma [facility] End: 10-04-2024 Albumin [Mass/volume] in Body fluid [facility] Work Phone: Comment on above: Once (Lab) for 1 Occurrences starting until 10/04/2024 Once for 1 Occurrenc es starting 10/04/2024 until 10/04/2024 Albumin [Mass/volume ] in Serum or Plasma [facility] Alkaline phosphatase [Enzymatic activity/volume] in Serum or Plasma [facility] Anion gap in Serum o r Plasma [facility] End: 10-04-2024 Bacteria identified in Body fluid by Culture [facility] Work Phone: Comment on above: Once (Lab) for 1 Occurrences starting until 10/04/2024 Bilirubin, total measurement [facility] BUN/Creatinine ratio [facility] Calcium [Mass/volume ] in Serum or Plasma [facility] Carbon dioxide, tota l [Moles/volume] in Central venous blood [facility] CBC W Auto Different ial panel - Blood [facility] End: 10-04-2024 Clostridioides difficile toxin A+B tcdA+tcdB genes [Presence] in Stool by ANANTH with probe detection C. difficile, PCR Microbiology STAT STAT (Lab) for 1 Occurrences starting 10/04/2024 until 10/04/[address] [facility] Work Phone: Comment on above: STAT (Lab) for 1 Occurrences starting until 10/04/2024 Comprehensive metabo lic 2000 panel - Serum or Plasma [facility] Creatinine [Mass/vol ume] in Serum or Plasma [facility] Cytology report of B carmelina fluid Cyto stain [facility] Erythrocyte mean corpuscular volume determination [facility] End: 10-04-2024 Extra Urine Toney Tube Extra Urine Toney Tube Lab Timed Once for 1 Occurrences starting 10/04/2024 until 10/04/[address] [facility] Work Phone: Comment on above: Once for 1 Occurrences starting 10/05/19 until 10/04/2024 End: 10-04-2024 Glucose [Mass/volume] in Body fluid [facility] Work Phone: Comment on above: Once (Lab) for 1 Occurrences starting until 10/04/2024 Once for 1 Occurrenc es starting 10/04/2024 until 10/04/2024 Glucose [Mass/volume ] in Serum or Plasma [facility] Glucose [Mass/volume ] in Serum or Plasma [facility] Hematocrit [Volume Fraction] of Blood [facility] Hemoglobin [Mass/vol ume] in Blood [facility] End: 10-04-2024 Hemoglobin.gastrointestin al.lower [Presence] in Stool by Immunoassay Fecal Occult Blood Immunoassy Microbiology STAT Once (Lab) for 1 Occurrences starting 10/04/2024 until 10/04/[address] [facility] Work Phone: Comment on above: Once (Lab) for 1 Occurrences starting until 10/04/2024 Hepatitis A virus Ig M Ab [Presence] in Serum [facility] Hepatitis B core ant ibody measurement, IgM type [facility] Hepatitis B surface antigen measurement [facility] Hepatitis C antibody measurement [facility] INR in Blood by Coagulation assay [facility] End: 10-04-2024 Lactate dehydrogenase [Enzymatic activity/volume] in Body fluid by Lactate to pyruvate reaction [facility] Work Phone: Comment on above: Once (Lab) for 1 Occurrences starting until 10/04/2024 Once for 1 Occurrenc es starting 10/04/2024 until 10/04/2024 Lactate dehydrogenas e [Enzymatic activity/volume] in Body fluid by Pyruvate to lactate reaction [facility] Lactic acid measurement [facility] Lactic acid measurement [facility] Leukocytes [#/volume ] in Blood [facility] Magnesium measurement [facility] Mean corpuscular hemoglobin concentration determination [facility] Mean corpuscular hemoglobin determination [facility] Measurement of renal function [facility] Neutrophil count [facility] Neutrophil percent differential count [facility] End: 10-04-2024 Non-gynecological cytology method study Cytology (Non-Gynecologic) Pathology and Cytology Routine Once (Lab) for 1 Occurrences starting 10/04/2024 until 10/04/2024 [facility] Service Area Work Phone: Comment on above: Once (Lab) for 1 Occurrences starting until 10/04/2024 Ova OR parasites identification [facility] Patient Education [facility] Work Phone: Patient referral [facility] Work Phone: End: 10-04-2024 pH of Body fluid [facility] Work Phone: Comment on above: Once (Lab) for 1 Occurrences starting until 10/04/2024 Platelets [#/volume] in Blood [facility] Potassium measurement [facility] End: 10-04-2024 Protein [Mass/volume] in Body fluid [facility] Work Phone: Comment on above: Once (Lab) for 1 Occurrences starting until 10/04/2024 Once for 1 Occurrenc es starting 10/04/2024 until 10/04/2024 Protein [Mass/volume ] in Body fluid [facility] Prothrombin time [facility] Red blood cell count [facility] Red cell distributio n width determination [facility] Respiratory pathogen s DNA and RNA panel - Respiratory specimen by ANANTH with probe detection [facility] Serum chloride measurement [facility] Sodium measurement [facility] End: 10-04-2024 Stool Pathogen Panel, PCR Stool Pathogen Panel, PCR Microbiology STAT Once (Lab) for 1 Occurrences starting 10/04/2024 until 10/04/[address] [facility] Work Phone: Comment on above: Once (Lab) for 1 Occurrences starting until 10/04/2024 Total protein measurement [facility] UA DIP, URINE (POC) UA DIP, URIN E (POC) Lab Routine Screening for genitourinary condition 1 Occurrences starting 12/07/2024 [facility] Work Phone: Comment on above: 1 Occurrences starting 12/07/2024 Urea nitrogen [Mass/volume] in Serum or Plasma [facility] End: 10-04-2024 Urinalysis complete W Reflex Culture panel - Urine [facility] Service Area Work Phone: Comment on above: Once (Lab) for 1 Occurrences starting until 10/04/2024 Once for 1 Occurrenc es starting 10/04/2024 until 10/04/2024 Urine culture [facility] Urine culture [facility] Urine culture [facility] Urine culture [facility] Urine culture [facility] Urine culture [facility] Urine culture [facility] Urine culture [facility] Urine culture [facility] Immunizations Immunization Date Immunization Notes Care Provider Danny méndez 11-16-2024 COVID-19 vaccine, ag e 12+ yr ([employer] [facility]) Jeremi Abreu RN Work Phone: [facility] 11-15-2024 pneumococcal conjuga te (PCV20) vaccine, 20 valent (PREVNAR 20) Marah SAVAGE Work Phone: [facility] 11-14-2024 hepatitis A vaccine, adult dosage Marah SAVAGE Work Phone: [facility] 11-14-2024 Hepatitis B vaccine (recombinant), CpG adjuvanted Marah SAVAGE Work Phone: [facility] 11-14-2024 tetanus toxoid, redu danica diphtheria toxoid, and acellular pertussis vaccine, adsorbed Marah Arauz [employer] Work Phone: [facility] 09-20-2024 influenza, seasonal, injectable Jeremi Abreu RN Work Phone: [facility] Work Phone: 09-15-2024 tuberculin skin test ; purified protein derivative solution, intradermal Jeremi Abreu RN Work Phone: [facility] Payers Date Payer Category Payer Self-pay 2024 Medicaid [id number] 2024 Medicaid [id number] 1965 Unknown [id number] 1965 Unknown [id number] Unknown [id number] Social History Date Type Detail Facility Start: 10-04-2024 End: 04-09-2025 Tobacco smoking status NHIS Ex-smoker [facility] Work Phone: History of tobacco use Current smoker [facility] Work Phone: History of tobacco use Cigarette Smoker [facility] Work Phone: Start: 10-04-2024 End: 11-11-2024 Tobacco use and exposure Smokeless tobacco non-user [facility] Work Phone: Start: 10-04-2024 Alcoholic beverage intake Ex-drinker (finding) [facility] Work Phone: Start: 10-04-2024 End: 11-15-2024 History of Social function [place] [facility] Start: 10-04-2024 End: 11-15-2024 Tobacco use panel [facility] Start: 1965 Sex assigned at Not on file [facility] Work Phone: Start: 09-24-2024 End: 10-04-2024 Exposure to SARS-CoV-2 (event) Not sure [facility] Work Phone: Start: 10-11-2024 End: 11-21-2024 Sex Male (finding) [facility] Start: 1965 Sex Assigned At Male [facility] Start: 11-11-2024 End: 11-18-2024 Alcoholic beverage intake Lifetime non-drinker (finding) [facility] Has the Apt[employer], or water [employer]far[employer] threatened to shut off services in your home in past 12Mo No [facility] (I/We) worried [facility] (my/our) food would run out before (I/we) got money to buy more. Sometimes true [facility] In the past 12 month s, has lack of transportation kept you from medical appointments or from getting medications? Yes [facility] Medical Equipment Procedure Code Equipment Code Equipment Origin al Text Equipment Identifier Dates Insertion, PleurX catheter system, pleural cavity FDA Start: 03-30-2025 Insertion, PleurX catheter system, pleural cavity FDA Start: 03-30-2025 Cystoscopic insertion of stent ([id number]) ([id number] FDA Start: 09-05-2024 Goals Date Patient Goal Desired Activity /State Functional Status Date Assessment Result Facility 04-10-2025 Functional status Bedrest [facility] Work Phone: 02-27-2025 Functional status Ambulates [facility] Work Phone: 02-17-2025 Functional status Bathroom Privi lege;Back to bed [facility] Work Phone: 01-31-2025 Functional status Ambulates [facility] Work Phone: 01-21-2025 Functional status Ambulates [facility] Work Phone: 01-05-2025 Functional status With Assist of 1 [facility] Work Phone: 01-05-2025 Functional status Ambulates;Bath room Privilege [facility] Work Phone: 12-02-2024 Functional status Ambulates [facility] Work Phone: 11-25-2024 Functional status Bedrest [facility] Work Phone: 11-18-2024 Are you deaf, or do you have serious difficulty hearing Yes 11/18/2024 10:13 AM Anika Andino RN Yes [facility] 11-18-2024 Are you blind, or do you have serious difficulty seeing, even when wearing glasses No 11/18/2024 10:13 AM Anika Andino RN No [facility] 11-18-2024 Do you have serious difficulty walking or climbing stairs Yes 11/18/2024 10:13 AM Anika Andino, DAYSI Yes [facility] 11-18-2024 Do you have difficul ty dressing or bathing Yes 11/18/2024 10:13 AM Anika Andino, DAYSI Yes [facility] 11-18-2024 Because of a physica l, mental, or emotional condition, do you have difficulty doing errands alone such as visiting a physician's office or shopping Yes 11/18/2024 10:13 AM Anika Andino, DAYSI Yes [facility] 11-11-2024 Functional status Bedpan [facility] Work Phone: 09-15-2024 Functional status Ambulates [facility] Work Phone: 09-02-2024 Functional status Bathroom Privilege [facility] Work Phone: Mental Status Date Assessment Result Facility 04-10-2025 Cognitive function Awake;Appropr iate;Follows Commands [facility] Work Phone: 04-08-2025 Cognitive function Cooperative [facility] Work Phone: 04-07-2025 Cognitive function Awake;Drowsy [facility] Work Phone: 03-30-2025 Cognitive function Voice/Name [facility] Work Phone: 03-11-2025 Cognitive function Appropriate;F ollows Commands;Drowsy [facility] Work Phone: 03-04-2025 Cognitive function Awake;Alert;Appropriat e [facility] Work Phone: 02-27-2025 Cognitive function Voice/Name [facility] Work Phone: 02-17-2025 Cognitive function Voice/Name [facility] Work Phone: 02-16-2025 Cognitive function Alert;Appropr iate;Follows Commands;Drowsy [facility] Work Phone: 02-11-2025 Cognitive function Awake;Alert;Appropriat e [facility] Work Phone: 01-31-2025 Cognitive function Cooperative;A nxious;Talkat chris [facility] Work Phone: 01-30-2025 Cognitive function Voice/Name [facility] Work Phone: 01-28-2025 Cognitive function Awake;Alert;A ppropriate;Fo llows Commands [facility] Work Phone: 01-21-2025 Cognitive function Voice/Name [facility] Work Phone: 01-05-2025 Cognitive function Voice/Name [facility] Work Phone: 01-02-2025 Cognitive function Awake;Alert;Appropriat e [facility] Work Phone: 12-30-2024 Cognitive function Awake;Alert;A ppropriate;Fo llows Commands [facility] Work Phone: 12-02-2024 Cognitive function Voice/Name [facility] Work Phone: 11-25-2024 Cognitive function Voice/Name [facility] Work Phone: 11-18-2024 Because of a physica l, mental, or emotional condition, do you have serious difficulty concentrating, remembering, or making decisions Yes 11/18/2024 10:13 AM EDT Anika Carolina RN Yes [facility] 11-10-2024 Cognitive function Voice/Name [facility] Work Phone: 09-29-2024 Cognitive function Awake;Alert;A ppropriate;Fo llows Commands [facility] Work Phone: 09-14-2024 Cognitive function Appropriate;Cooperativ e [facility] Work Phone: 09-14-2024 Cognitive function Voice/Name [facility] Work Phone: 09-02-2024 Cognitive function Voice/Name [facility] Work Phone: Clinical Notes 08-30-2024 to 04-10-2025 Note Date & Type Note Facility 04-10-2025 Discharge summary Note Date/Time April 10, 2025 10:52am [facility] Medical Records Department [address] [place] [address] Discharge Summary 04/10/25 1046 MR#: [id number] Acct: [id number] Name: FRANKLIN WIGGINS Rep #:[id number] : 1965 59 From: Anurag Lucero PCP: YG Pena Status:ADM I N Location: [address] Providers Date of Admission: 04/07/25 Date of Discharge: 04/10/25 Primary Care Physician: YG Pena Reason For Visit: HEPATIC ENCEPHALOPATHY Diagnosis Discharge Diagnosis (1) Hepatic encephalopathy: Status: Acute Code(s): K76.82 - Hepatic encephalopathy Plan 53 gentleman was admitted for confusion and hepatic encephalopathy. He was altered mental status. Patient refused/revoked the hospice. 1. Acute hepatic encephalopathy decompensated BOYER cirrhosis with portosystemicanastomosis, esophageal varices: Patient is admitted on MedSurg floor. Has beenadmitted multiple times recently for think. Once patient was in hospice care and requested PleurX catheter in the abdomen for ascites drainage. Ultrasound-guided tunneled catheter was inserted on 03/30. But patient got admitted on 04/07 after hospice revoked. In the past, he was found not transplant candidate by [facility] and he keeps changing mind to go to other hospital for transplant evaluation. 04/10: Patient is in the normal/baseline mental status. Acute hepatic cellular control. Advised lactulose 15 mL 4 times daily to have a goal 2-3 bowel movements per day. Follow-up in GI office. Mild to moderate normocytic normochromic anemia with chronic thrombocytopenia: Patient H&H varies between 8 to 9 g and once was 7.7 on 02/17. No significant drop in last 2 to 3 days. Anticoagulant discontinued. Yesterday, after discussion with Dr. Rick Alex, the plan was discharged but patienthad hematuria with reddish urine therefore UA ordered and discharge canceled. Previous UA shows RBC 50?100 cells. 04/10: Hemoglobin dropped to 7.6 g, is still noted at level transfusion PRBC. IV ferrous infusion given. Prescription of ferrous sulfate and vitamin C given. Repeat UA shows RBC 10-25 cells better than before. WBC 25-50 cells. Mild microscopic hematuria. Follow-up urology. It might be due to cirrhosis with thrombocytopenia #2 MASLD with cirrhosis-patient is on diuretic, complicates care, management, recovery, and prognosis #3 generalized debility secondary to chronic liver disease-patient is under hospice care at home, this was likely revoked when he was admitted to the hospital #4 type 2 diabetes-: Glucoses being monitored. #5 essential hypertension-patient is on Lasix, spironolactone, and Coreg 04/10: Furosemide decreased to 40 mg daily, spironolactone 150 mg daily. Carvedilol increased to 6.25 mg twice daily. Discharge medication reconciliation done. Discharge follow-up instructions [...] on follow-up instructions. Microbiology Past 72 Hours 04/07/25 21:42 Urine, Clean Catch Urine Culture - Preliminary Culture exhibits no growth. 04/07/25 23:57 Mucosa - Nasopharyngeal Respiratory Panel (PCR) - Final Rhinovirus 04/07/25 23:57 Mucosa - Nose Coronavirus COVID-19 PCR - Final Laboratory Results 04/08/25 16:26: POC Glucose 224 H 04/08/25 19:51: POC Glucose 186 H 04/09/25 06:00: POC Glucose 163 H 04/09/25 11:53: POC Glucose 201 H Medications at Discharge Home Medications acetaminophen 500 mg tablet 1,000 mg PO Q8 PRN fever or pain 10/28/24 cyclobenzaprine 10 mg tablet 10 mg PO QHS muscle relaxer 01/02/25 pen needle, diabetic 31 gauge x 5/16 (Pen Needle) #1,200 ea 01/31/25 insulin glargine-yfgn 100 unit/mL (3 mL) subcutaneous pen 30 unit subcut QHS 03/10/25 insulin lispro 100 unit/mL subcutaneous pen (Humalog KwikPen (U-100) Insulin) 20unit subcut TIDAC 04/07/25 metformin 500 mg tablet 500 mg PO QHS 04/07/25 oxycodone 5 mg tablet 5 mg PO TID PRN PRN dyspnea 04/07/25 sodium bicarbonate 650 mg tablet 650 mg PO BID 04/07/25 ascorbic acid (vitamin C) 500 mg tablet 500 mg PO BID #60 tabs 04/10/25 carvedilol 3.125 mg tablet 6.25 mg (2 x 3.125 mg) PO BID 1 month #60 tabs 04/10/25 ferrous sulfate 325 mg (65 mg iron) tablet 325 mg PO QODAY #30 tabs 04/10/25 furosemide 40 mg tablet 40 mg PO DAILY 30 days #30 tabs 04/10/25 lactulose 10 gram/15 mL oral solution 10 g (15 mL) PO 4XD 30 days #1 mL 04/10/25 spironolactone 100 mg tablet 150 mg (1.5 x 100 mg) PO DAILY 30 days #45 tabs 04/10/25 Physical Exam Narrative Seen and examined The pinkish urine has dissolved. Patient on baseline mental status. He said hehad a peritoneal tube catheter and I see operative note of ultrasound-guided placement of tunneled PleurX catheter in the abdomen. Patient is stated that itfell off spontaneously which does not make sense. Physical exam: General: Alert, Oriented x3, Cooperative HEENT: Atraumatic, PERRLA, EOMI, Normocephalic. Oral: Oral mucosa moist. No Gingival or Mucosal Lesions/ Ulcerations Neck: Supple, No JVD, Negative Carotid Bruits Chest wall/Lungs: Air entry diminished in bilateral lung bases. No crepitation/rhonchi Cardiovascular: Regular rate and rhythm, Normal S1,S2, No M/G/R Abdomen: Bowel Sounds Present, Soft, Non Tender, shifting dullness/mild ascites present. No peritoneal catheter. : No dysuria. Hematuria. No renal angle tenderness. No suprapubic tenderness. Extremities: No edema, Capillary Refill Less than 3 Seconds Skin: Bruises present on left upper arm and abdomen. Coagulopathy. Musculoskeletal: No Tenderness to Palpation of Joints or Extremities Neurological: Cranial nerves II-XII grossly intact, DTR 2+/4. No acute focal neurological deficit. Psych/Mental Status: flat affect, forgetful Weight / BMI Weight Weight: 216 lb 4.375 oz Body Mass Index (BMI) 32.0 ABG / Lab / Microbiology Data 04/10/25 06:44 04/10/25 06:44 Laboratory: Laboratory Results - last 24 hr 04/09/25 11:53: POC Glucose 201 H 04/09/25 14:14: Hgb 8.4 L, Hct 24.8 L 04/09/25 15:00: Urine Color Straw, Urine Clarity Cloudy, Urine pH 7.0, Ur Specific Nazlini 1.010, Urine Protein 30 H, Urine Glucose (UA) Normal, Urine Ketones Negative, Urine Occult Blood 250 H, Urine Nitrite Negative, Urine Bilirubin Negative, Urine Urobilinogen Normal, Ur Leukocyte Esterase 100 H, Urine RBC 10-25 SEEN, Urine WBC 25-50 SEEN, Ur Squamous Epith Cells 0-5 SEEN, Urine Bacteria 2+, Urine Mucus 0 SEEN 04/09/25 16:17: POC Glucose 234 H 04/09/25 22:53: POC Glucose 184 H 04/10/25 06:34: POC Glucose 189 H 04/10/25 06:44: WBC 6.4, RBC 2.51 L, Hgb 7.6 L, Hct 22.2 L, MCV 88.4 D, MCH 30.3, MCHC 34.2, RDW Std Deviation 49.1 H, RDW Coeff of Francis 15.5 H, Plt Count 114 L, MPV 11.1, Immature Gran % (Auto) 0.600, Neut % (Auto) 62.8, Lymph % (Auto) 19.5, Clayton % (Auto) 10.6 H, Eos % (Auto) 6.2 H, Baso % (Auto) 0.3, Absolute Neuts (auto) 4.0, Absolute Lymphs (auto) 1.25, Nucleated RBC % 0, Sodium 134, Potassium 3.3, Chloride 107, Carbon Dioxide 17.8 L, Anion Gap 9, BUN9, Creatinine 1.16, Estim Creat Clear Calc 80.17, Est GFR (MDRD) Non-Af 73, BUN/Creatinine Ratio 7.4 L, Glucose 199 H, Calcium 8.1, Total Bilirubin 1.38 H, AST 37, ALT 22, Alkaline Phosphatase 140 H, Total Protein 4.9 L, Albumin 2.0 L, Globulin 3.0, Albumin/Globulin Ratio 0.7 L Microbiology: Microbiology 04/07/25 21:42 Urine, Clean Catch Urine Culture - Final Culture exhibits no growth. 04/07/25 23:57 Mucosa - Nasopharyngeal Respiratory Panel (PCR) - Final Rhinovirus 04/07/25 23:57 Mucosa - Nose Coronavirus COVID-19 PCR - Final D/C Instructions Weight Bearing Status: Weight bearing as tolerated Call your doctor if you observe: Fever of 101 or Higher, Coldness, Increased Pain, Numbness or Tingling, Change in Color, Inability to urinate, Inability to have a bowel movement, Shortness of breath, Dizziness, Fainting spells, Swellingin the ankles, Chest pain, Prolonged hiccupping, Increased palpitations (irregular heartbeat) and Calf discomfort DC O2, CPAP, BIPAP Needs Home O2 Discharge instructions: No When: IN 2 WEEKS Meaningful Use Info Meaningful Use Meaningful Use Diagnoses (Choose all that apply): None applicable Discharge Plan Admission Admit Date/Time: 04/07/25 21:24 Primary Reason for Your Visit: Hepatic encephalopathy due to decompensated cirrhosis Attending Provider: Anurag Irene Primary Care Provider: Josy Elias Consulting Providers: Maria Guadalupe Shore; Rick Carlin Discharge Orders/Prescriptions Prescriptions: New furosemide 40 mg Tablet 40 mg PO DAILY 30 Days Qty: 30 2RF ferrous sulfate 325 mg (65 mg iron) tablet 325 mg PO QODAY Qty: 30 2RF ascorbic acid (vitamin C) 500 mg tablet 500 mg PO BID Qty: 60 2RF Continued cyclobenzaprine 10 mg tablet 10 mg PO QHS (DME) pen needle, diabetic [Pen Needle] 31 gauge x 5/16 needle See Rx Instructions .Route Qty: 1200 0RF Rx Instructions: As directed acetaminophen 500 mg Tablet 1,000 mg PO Q8 PRN (Reason: fever or pain) insulin glargine-yfgn 100 unit/mL (3 mL) Insulin Pen 30 unit subcut QHS metformin 500 mg tablet 500 mg PO QHS sodium bicarbonate 650 mg tablet 650 mg PO BID oxycodone 5 mg tablet 5 mg PO TID PRN PRN (Reason: dyspnea) insulin lispro [Humalog KwikPen Insulin] 100 unit/mL Insulin Pen 20 unit subcut TIDAC spironolactone 100 mg tablet 150 mg PO DAILY 30 Days Qty: 45 3RF Rx Instructions: Hold for serum potassium more than 5.0. Changed carvedilol 3.125 mg tablet 6.25 mg PO BID 30 Days Qty: 60 2RF Rx Instructions: must administer with a meal/food lactulose 10 gram/15 mL Solution 10 g PO 4XD 30 Days Qty: 1 0RF Patient Comments: hasn't been taking at home Rx Instructions: Goal to have 2-3 soft bowel movements per day Discontinued furosemide 40 mg Tablet 40 mg PO QODAY Referrals / Follow Up: Foster Rascon MD [Med Staff - Active Staff] - Within 2 Weeks (FOR Hematuria) Niranjan Li DO [Med Staff - Active Staff] - Within 1 Month Josy Elias NP-C [Primary Care Provider] - Disposition Disposition (needs filled in before D/C Order can be placed): Home, Self Care 04/10/25 1052 <Electronically signed by Anurag Irene MD> Cosigner Signature (if applicable): CC: YG Elias; Dr. Anurag Irene MD~ Signed [facility] Work Phone: 1(964) 166-446009-07-2025 Discharge summary Author Anurag Irene [facility] Note Date/Time April 10, 2025 10:46am [facility] Medical Records Department [address] [place] [address] Instructions for Home/Discharge Instructions 04/10/25 0835 MR#: [id number] Acct: [id number] Name: FRANKLIN WIGGINS Rep #:[id number] : 1965 59 From: Anurag Lucero PCP: BRITTANY PenaC Status:ADM I N Discharge Instructions DC O2, CPAP, BIPAP needs Home O2 Discharge instructions: No Dressing / Incision Discharge Activity: Return to Normal Activity Weight Bearing Status: Weight bearing as tolerated Dressing / Incision Call your doctor if you observe: Fever of 101 or Higher, Coldness, Increased Pain, Numbness or Tingling, Change in Color, Inability to urinate, Inability to have a bowel movement, Shortness of breath, Dizziness, Fainting spells, Swellingin the ankles, Chest pain, Prolonged hiccupping, Increased palpitations (irregular heartbeat) and Calf discomfort Follow Up Care When: IN 2 WEEKS Test Results: Test results from this visit will be discussed in further detail at your follow- up appointment, if applicable. Discharge Plan Admission Admit Date/Time: 04/07/25 21:24 Primary Reason for Your Visit: Hepatic encephalopathy due to decompensated cirrhosis Attending Provider: Anurag Irene Primary Care Provider: Josy Elias Consulting Providers: Maria Guadalupe Shore; Rick Carlin Discharge Orders/Prescriptions Prescriptions: New furosemide 40 mg Tablet 40 mg PO DAILY 30 Days Qty: 30 2RF ferrous sulfate 325 mg (65 mg iron) tablet 325 mg PO QODAY Qty: 30 2RF ascorbic acid (vitamin C) 500 mg tablet 500 mg PO BID Qty: 60 2RF Continued cyclobenzaprine 10 mg tablet 10 mg PO QHS (DME) pen needle, diabetic [Pen Needle] 31 gauge x 5/16 needle See Rx Instructions .Route Qty: 1200 0RF Rx Instructions: As directed acetaminophen 500 mg Tablet 1,000 mg PO Q8 PRN (Reason: fever or pain) insulin glargine-yfgn 100 unit/mL (3 mL) Insulin Pen 30 unit subcut QHS metformin 500 mg tablet 500 mg PO QHS sodium bicarbonate 650 mg tablet 650 mg PO BID oxycodone 5 mg tablet 5 mg PO TID PRN PRN (Reason: dyspnea) insulin lispro [Humalog KwikPen Insulin] 100 unit/mL Insulin Pen 20 unit subcut TIDAC spironolactone 100 mg tablet 150 mg PO DAILY 30 Days Qty: 45 3RF Rx Instructions: Hold for serum potassium more than 5.0. Changed carvedilol 3.125 mg tablet 6.25 mg PO BID 30 Days Qty: 60 2RF Rx Instructions: must administer with a meal/food lactulose 10 gram/15 mL Solution 10 g PO 4XD 30 Days Qty: 1 0RF Patient Comments: hasn't been taking at home Rx Instructions: Goal to have 2-3 soft bowel movements per day Discontinued furosemide 40 mg Tablet 40 mg PO QODAY Referrals / Follow Up: Josy Elias NP-C [Primary Care Provider] - 04/10/25 1046<Electronically signed by Anurag Irene MD>Anurag Irene MD CC: YG Elias; Dr. Maria Guadalupe Shore MD; Dr. Rick Carlin DO ~ Signed [facility] Work Phone: 1(564) 547-842709-07-2025 [facility]09-06-2025 Progress note Author Anurag Irene [facility] Note Date/Time April 09, 2025 1:59pm [facility] Medical Records Department [address] [place] [id number] Progress Note - Hospitalist 04/09/25 1348 MR#: [id number] Acct: [id number] Name: FRANKLIN WIGGINS Rep #:[id number] : 1965 59 From: Anurag Lucero PCP: YG Pena Status:ADM I N Location: [place] [address] Reason for Visit Chief Complaint: Confusion, weakness. Objective Data Objective Data Vital Signs: Vital Signs Temp Pulse Resp BP Pulse Ox O2 Del Method 97.7 F L 72 18 115/65 96 Room Air 04/09/25 09:57 04/09/25 09:57 04/09/25 09:57 04/09/25 09:57 04/09/25 09:57 04/09/25 09:57 Oxygen Delivery Method Room Air Weight: 207 lb 1.6 oz Body Mass Index (BMI) 30.7 Intake & Output: Intake and Output for Last 24 Hours 04/07/25 04/08/25 04/09/25 23:59 23:59 23:59 Intake Total 100 / 100 Output Total 300 / 300 Balance -200 / -200 Lab / Micro Data 04/08/25 06:25 04/08/25 06:25 Labs: Laboratory Results - last 24 hr 04/08/25 16:26: POC Glucose 224 H 04/08/25 19:51: POC Glucose 186 H 04/09/25 06:00: POC Glucose 163 H 04/09/25 11:53: POC Glucose 201 H Micro: Microbiology 04/07/25 21:42 Urine, Clean Catch Urine Culture - Preliminary Culture exhibits no growth. 04/07/25 23:57 Mucosa - Nasopharyngeal Respiratory Panel (PCR) - Final Rhinovirus 04/07/25 23:57 Mucosa - Nose Coronavirus COVID-19 PCR - Final Rhythm Strip Rhythm Strip: Sinus Rhythm Rate: 74 Ectopy: None Physical Exam Narrative Seen and examined Patient nurse said patient had pinkish urine. General: Alert, Oriented x3, Cooperative HEENT: Atraumatic, PERRLA, EOMI, Normocephalic. Oral: Oral mucosa moist. No Gingival or Mucosal Lesions/ Ulcerations Neck: Supple, No JVD, Negative Carotid Bruits Chest wall/Lungs: Air entry diminished in bilateral lung bases. No crepitation/rhonchi Cardiovascular: Regular rate and rhythm, Normal S1,S2, No M/G/R Abdomen: Bowel Sounds Present, Soft, Non Tender, shifting dullness/mild ascites present. : No dysuria. Hematuria. No renal angle tenderness. No suprapubic tenderness. Extremities: No edema, Capillary Refill Less than 3 Seconds Skin: Bruises present on left upper arm and abdomen. Coagulopathy. Musculoskeletal: No Tenderness to Palpation of Joints or Extremities Neurological: Cranial nerves II-XII grossly intact, DTR 2+/4. No acute focal neurological deficit. Psych/Mental Status: flat affect, forgetful Assessment & Plan Assessment/Plan (1) Hepatic encephalopathy: PLAN: Plan 1. Acute hepatic encephalopathy decompensated BOYER cirrhosis with portosystemicanastomosis, esophageal varices: Patient is admitted on MedSurg floor. Has beenadmitted multiple times recently for think. Once patient was in hospice care and requested PleurX catheter in the abdomen for ascites drainage. Ultrasound- guided tunneled catheter was inserted on 03/30. But patient got admitted on 04/07 after hospice revoked. In the past, he was found not transplant candidate by [facility] and he keeps changing mind to go to other hospital for transplant evaluation. Mild to moderate normocytic normochromic anemia with chronic thrombocytopenia: Patient H&H varies between 8 to 9 g and once was 7.7 on 02/17. No significant drop in last 2 to 3 days. Anticoagulant discontinued. Yesterday, after discussion with Dr. Rick Alex, the plan was discharged but patienthad hematuria with reddish urine therefore UA ordered and discharge canceled. Previous UA shows RBC 50?100 cells. #2 MASLD with cirrhosis-patient is on diuretic, complicates care, management, recovery, and prognosis #3 generalized debility secondary to chronic liver disease-patient is under hospice care at home, this was likely revoked when he was admitted to the hospital #4 type 2 diabetes-: Glucoses being monitored. #5 essential hypertension-patient is on Lasix, spironolactone, and Coreg Microbiology Past 72 Hours 04/07/25 21:42 Urine, Clean Catch Urine Culture - Preliminary Culture exhibits no growth. 04/07/25 23:57 Mucosa - Nasopharyngeal Respiratory Panel (PCR) - Final Rhinovirus 04/07/25 23:57 Mucosa - Nose Coronavirus COVID-19 PCR - Final Laboratory Results 04/08/25 16:26: POC Glucose 224 H 04/08/25 19:51: POC Glucose 186 H 04/09/25 06:00: POC Glucose 163 H 04/09/25 11:53: POC Glucose 201 H Charges/Coding Visit Charges Inpatient E&M: 59017 Subs Hosp L2 04/09/25 4951 <Electronically signed by Anurag Irene MD> Cosigner Signature (if applicable): CC: ~ Signed [facility] Work Phone: 1(372) 133-590709-05-2025 Progress note Author Rick Carlin [facility] Note Date/Time April 08, 2025 4:58pm [facility] Medical Records Department [address] [place] [address] Progress Note - Hospitalist 04/08/25 1651 MR#: [id number] Acct: [id number] Name: FRANKLIN WIGGINS Rep #:[id number] : 1965 59 From: Rick Carlin DO PCP: Josy Elias MERCHANDISING ASSISTANT-C Status:ADM I N Location: [place] TI885-7 Reason for Visit Chief Complaint: Confusion, weakness. Subjective Subjective Patient was seen and examined today, he is drowsy but awakens to verbal stimulation and follows commands. I have placed him on Xifaxan and oral lactulose. Objective Data Objective Data Vital Signs: Vital Signs Temp Pulse Resp BP Pulse Ox O2 Del Method 97.4 F L 80 18 113/68 100 Room Air 04/08/25 13:46 04/08/25 13:46 04/08/25 13:46 04/08/25 13:46 04/08/25 13:46 04/08/25 13:46 Oxygen Delivery Method Room Air Weight: 96.8 kg Body Mass Index (BMI) 31.5 Intake & Output: Intake and Output for Last 24 Hours 04/06/25 04/07/25 04/08/25 23:59 23:59 23:59 Intake Total 100 / 100 Balance 100 / 100 Lab / Micro Data 04/08/25 06:25 04/08/25 06:25 Labs: Laboratory Results - last 24 hr 04/07/25 18:19: POC Glucose 81 04/07/25 18:32: WBC 7.9, RBC 3.06 L, Hgb 9.1 L, Hct 27.7 L, MCV 90.5, MCH 29.7, MCHC 32.9, RDW Std Deviation 50.8 H, RDW Coeff of Francis 15.5 H, Plt Count 164, MPV10.8, Immature Gran % (Auto) 0.500, Neut % (Auto) 67.0, Lymph % (Auto) 16.8 L, Clayton % (Auto) 9.9, Eos % (Auto) 5.2 H, Baso % (Auto) 0.6, Absolute Neuts (auto) 5.3, Absolute Lymphs (auto) 1.32, Nucleated RBC % 0, Sodium 136, Potassium 4.0, Chloride 110 H, Carbon Dioxide 16.9 L, Anion Gap 9, BUN 11, Creatinine 1.04, EstGFR (MDRD) Non-Af 83, BUN/Creatinine Ratio 10.5, Glucose 106 H, Calcium 8.6, Phosphorus 3.0, Magnesium 1.7, Total Bilirubin 1.76 H, Direct Bilirubin 1.11 H, AST 48 H, ALT 23, Alkaline Phosphatase 176 H, Total Protein 6.1, Albumin 2.4 L, Globulin 3.8, Lipase 47, Procalcitonin 0.09 04/07/25 20:26: Ammonia 143.0 H 04/07/25 21:42: Urine Color Yellow, Urine Clarity Sl. Cloudy, Urine pH 6.5, Ur Specific Nazlini 1.015, Urine Protein 100 H, Urine Glucose (UA) Normal, Urine Ketones Negative, Urine Occult Blood 250 H, Urine Nitrite Negative, Urine Bilirubin Negative, Urine Urobilinogen Normal, Ur Leukocyte Esterase 500 H, Urine RBC 50-100 SEEN, Urine WBC 0-5 SEEN, Ur Squamous Epith Cells 0 SEEN, UrineBacteria 1+, Urine Mucus 0 SEEN 04/08/25 00:51: POC Glucose 145 H 04/08/25 06:25: WBC 6.5, RBC 2.94 L, Hgb 9.0 L, Hct 27.5 L, MCV 93.5, MCH 30.6, MCHC 32.7, RDW Std Deviation 53.2 H, RDW Coeff of Francis 15.8 H, Plt Count 124 L, MPV 10.3, Immature Gran % (Auto) 0.500, Neut % (Auto) 59.8, Lymph % (Auto) 22.5,Clayton % (Auto) 10.7 H, Eos % (Auto) 5.7 H, Baso % (Auto) 0.8, Absolute Neuts (auto) 3.9, Absolute Lymphs (auto) 1.47, Nucleated RBC % 0, Sodium 135, Potassium 3.9, Chloride 111 H, Carbon Dioxide 16.1 L, Anion Gap 8, BUN 10, Creatinine 1.00, Estim Creat Clear Calc 92.41, Est GFR (MDRD) Non-Af 87, BUN/Creatinine Ratio 10.0, Glucose 113 H, Calcium 8.4, Total Bilirubin 1.80 H, AST 44 H, ALT 22, Alkaline Phosphatase 146 H, Ammonia 105.0 H, Total Protein 5.4 L, Albumin 2.1 L, Globulin 3.2, Albumin/Globulin Ratio 0.7 L 04/08/25 06:29: POC Glucose 113 H 04/08/25 11:19: POC Glucose 244 H 04/08/25 16:26: POC Glucose 224 H Micro: Microbiology 04/07/25 23:57 Mucosa - Nasopharyngeal Respiratory Panel (PCR) - Final Rhinovirus 04/07/25 23:57 Mucosa - Nose Coronavirus COVID-19 PCR - Final Rhythm Strip Rhythm Strip: Sinus Rhythm Rate: 74 Ectopy: None Physical Exam Const no apparent distress and average body habitus Constitutional Narrative: Patient is drowsy but awakens to verbal stimulation, he does follow commands General Appearance: cooperative, well kempt and well developed Orientation / Consciousness: oriented to person and oriented to place HEENT normocephalic and moist oral mucous membranes Eyes PERRL, EOMs intact bilaterally and conjunctivae normal Neck supple, no JVD, thyroid normal and no carotid bruits General: trachea midline Resp normal respiratory effort, no retractions, no use of accessory muscles and clearto auscultation bilaterally Auscultation: Negative for rales, rhonchi or wheezes Cardio regular rate, regular rhythm, S1 normal heart sound, S2 normal heart sound, no murmurs, no rub and no gallops Cardio Narrative: 2/6 systolic murmur is noted at the apex and left sternal border GI normal to inspection, nondistended, normoactive bowel sounds, soft to palpation,non-tender and non-distended Extremity no clubbing, cyanosis or edema Skin no rashes or lesions noted General Skin Exam: no breakdown Neuro CN's II-XII intact bilaterally, moves all extremities, no focal motor deficits and no sensory deficits noted Neuro Narrative: Patient is drowsy but does awaken to verbal stimulation Sensorium / Orientation: oriented to person and oriented to place Speech: speech normal Psych Psych Narrative: Patient is drowsy, he awakens to verbal stimulation Assessment & Plan Assessment/Plan (1) Hepatic encephalopathy: PLAN: Plan 1. Hepatic encephalopathy-patient is alert enough to take oral medications at this time, he will be monitored #2 MASLD with cirrhosis-patient is on diuretic, complicates care, management, recovery, and prognosis #3 generalized debility secondary to chronic liver disease-patient is under hospice care at home, this was likely revoked when he was admitted to the hospital #4 type 2 diabetes-blood sugars will be monitored, sliding scale insulin will beadministered as needed #5 essential hypertension-patient is on Lasix, spironolactone, and Coreg Total clinical time spent by myself addressing the patient's medical issues, reviewing all of his data, and collaborating with patient's care team: 35 minutes Charges/Coding Visit Charges Inpatient E&M: 87350 Subs Hosp L2 04/08/258 <Electronically signed by Rick Carlin DO> Cosigner Signature (if applicable): CC: ~ Signed [facility] Work Phone: 1(393) 266-215209-05-2025 Progress note Author [facility] Note Date/Time April 10, 2025 1:19pm [facility] Medical Records Department [address] [facility] [place] [address] Progress Note - Hospitalist 04/08/25352 MR#: [id number] Acct: [id number] Name: FRANKLIN WIGGINS Rep #:[id number] : 1965 59 From: Maria Guadalupe Shore MD PCP: YG Pena Status:ADM I N Location: [place] [address] Hospitalist Note Respiratory panel with + rhinovirus. 04/08/25352 <Electronically signed by Maria Guadalupe Shore MD> Cosigner Signature (if applicable): CC: ~ Signed [facility] Work Phone: [phone] Discharge summary Author Rachel [facility] Note Date/Time April 07, 2025 11:52pm [facility] Medical Records Department [address] [facility] [place] [address] Emergency Department Summary 04/07/25 MR#: [id number] Acct: [id number] Name: FRANKLIN WIGGINS Rep #:[id number] : 1965 59 From: Rachel Holland PCP: YG Pena Status:ADM I N Location: [place] [address] HPI History of Present Illness Chief Complaint: General Illness Informant: patient and family Limited: other (confusion ) Narrative Narrative: Patient is a 59-year-old male with history of hepatic cirrhosis, staghorn calculus, recent removal of pleuroex catheter , URI symptoms presenting with worsening weakness and confusion. Patient is through hospice however is either a full code or DNR CCA. I did speak with his emergency contact who is helping take care of him along with the patient's ex-. They state he has been significantly more confused and weak today. They think his ammonia level is high. They note that his blood sugar was 80 before coming in. He did have an episode of vomiting today and seems shaky. No report of any fevers. Patient himself does not know why he is here and has no complaints. [facility] Medical History Diffuse abdominal pain Acute hepatic [...] QHS muscle relax er 01/02/25 02/15/25 History pen needle, diabetic 31 gauge x #1,200 ea 01/31/25 Unk nown Rx 12/17 (Pen Needle) carvedilol 3.125 mg tablet 3.125 mg PO BID 1 month #60 tabs 02/17/25 03/30/25 Rx lactulose 10 gram/15 mL oral 20 g (30 mL) PO TID #1 mL 02/27/25 Unknown Rx solution insulin glargine-yfgn 100 unit/mL 30 unit subcut QHS 0 03/10/25 Unknown History (3 mL) subcutaneous pen furosemide 40 mg tablet 40 mg PO QODAY 04/07/25 Unkn own History insulin lispro 100 unit/mL 20 unit subcut TIDAC Unknown History subcutaneous pen (Humalog KwikPen (U-100) Insulin) metformin 500 mg tablet 500 mg PO QHS 04/07/25 Unkno wn History oxycodone 5 mg tablet 5 mg PO TID PRN PRN dyspnea 04/07/25 Unknown History sodium bicarbonate 650 mg tablet 650 mg PO BID 5 Unknown History spironolactone 100 mg tablet 100 mg PO DAILY 04/07/25 Unknown History Allergy/AdvReac Type Severity Reaction Status [...] a friend help with his care. ROS ROS ED Review of Systems ROS Unobtainable: due to mental status EXAM Physical Exam Const Vital Signs: 04/07/25 18:05 04/07/25 19:00 04/07/25 [...] Oxygen Delivery Method 04/07/25 20:00 04/07/25 20:15 04/07/25 22:05 Temperature 98.0 F Temperature Source Oral Pulse Rate 74 73 77 Respiratory Rate 16 15 18 Respiratory Effort Respiratory Pattern Blood Pressure 122/71 H 112/70 Blood Pressure Mean 87 84 Pulse Ox 100 100 100 Oxygen Delivery Method Room Air 04/07/25 22:05 Temperature 98.0 F Temperature Source Pulse Rate 74 Respiratory Rate 15 Respiratory Effort Respiratory Pattern Blood Pressure 112/70 Blood Pressure Mean 84 Pulse Ox 100 Oxygen Delivery Method Positive well developed Constitutional Narrative: Chronically ill-appearing General Appearance ED: well developed and NAD HEENT Reports moist mucous membranes Eyes PERRL General Eye ED: Yes scleral icterus Neck supple Neck Narrative: No meningeal signs Chest Wall inspection of chest normal Resp normal respiratory effort and clear to auscultation bilaterally Cardio regular rate and regular rhythm GI non-tender GI Narrative: Mildly distended abdomen. No fluid wave present. Reducible umbilical hernia present. No tenderness to palpation. Palpation: soft; Negative for tender or guarding Extremity normal to inspection General Extremety ED: Negative for edema General Extremity: Negative for edema Neuro Neuro Narrative: Somnolent, arousable to verbal stimuli. Generally weak. Psych mental status grossly normal Skin Skin Narrative: Sallow complex. Healing incision in the right lower quadrant consistent where prior PleurX was. There is very slight amount of ascitic drainage present. MDM MDM MDM Narrative Medical decision making narrative: Patient valuated for worsening altered mental status. Has a history of cirrhosis and hepatic encephalopathy. Patient appears encephalopathic on exam. Differential includes infection, hepatic encephalopathy, electrolyte derangement, hypoglycemia, hyponatremia and lower suspicion for intracranial hemorrhage as no report of any trauma or falls. No focal deficits appreciated. CBC shows chronic anemia with no leukocytosis or left shift. CMP shows a bicarbof 16.9 but normal anion gap and otherwise normal electrolytes. He does have a mildly elevated bilirubin and chronic mild transaminitis. Ammonia significantlyelevated at 143 consistent with a PEG and cephalopathy. Glucose is normal at 81on fingerstick and 106 on his BMP. Low suspicion for hypoglycemia as a cause ofhis mental status. Urinalysis obtained to straight cath does show negative nitrites, 1+ bacteria, 0-5 white blood cells and 50-100 red blood cells. This is likely consistent with traumatic catheterization. I will send for culture but I do not think he requires antibiotics at this time. Patient started on lactulose. Case discussed with hospitalist for admission forhepatic and cephalopathy. I did speak with his primary caregivers he would likehim treated for hepatic encephalopathy so he ideally cannot return home. Lab Data Labs: Laboratory Results - last 24 hr 04/07/25 04/07/25 04/07/25 18:19 18:32 20:26 WBC 7.9 RBC 3.06 L Hgb 9.1 L Hct 27.7 L MCV 90.5 MCH 29.7 MCHC 32.9 RDW Std Deviation 50.8 H RDW Coeff of Francis 15.5 H Plt Count 164 MPV 10.8 Immature Gran % (Auto) 0.500 Neut % (Auto) 67.0 Lymph % (Auto) 16.8 L Clayton % (Auto) 9.9 Eos % (Auto) 5.2 H Baso % (Auto) 0.6 Absolute Neuts (auto) 5.3 Absolute Lymphs (auto) 1.32 Nucleated RBC % 0 Sodium 136 Potassium 4.0 Chloride 110 H Carbon Dioxide 16.9 L Anion Gap 9 BUN 11 Creatinine 1.04 Est GFR (MDRD) Non-Af 83 BUN/Creatinine Ratio 10.5 Glucose 106 H Calcium 8.6 Phosphorus 3.0 Magnesium 1.7 Total Bilirubin 1.76 H Direct Bilirubin 1.11 H AST 48 H ALT 23 Alkaline Phosphatase 176 H Ammonia 143.0 H Total Protein 6.1 Albumin 2.4 L Globulin 3.8 Lipase 47 Urine Color Urine Clarity Urine pH Ur Specific Nazlini Urine Protein Urine Glucose (UA) Urine Ketones Urine Occult Blood Urine Nitrite Urine Bilirubin Urine Urobilinogen Ur Leukocyte Esterase Urine RBC Urine WBC Ur Squamous Epith Cells Urine Bacteria Urine Mucus POC Glucose 81 04/07/25 21:42 WBC RBC Hgb Hct MCV MCH MCHC RDW Std Deviation RDW Coeff of Francis Plt Count MPV Immature Gran % (Auto) Neut % (Auto) Lymph % (Auto) Clayton % (Auto) Eos % (Auto) Baso % (Auto) Absolute Neuts (auto) Absolute Lymphs (auto) Nucleated RBC % Sodium Potassium Chloride Carbon Dioxide Anion Gap BUN Creatinine Est GFR (MDRD) Non-Af BUN/Creatinine Ratio Glucose Calcium Phosphorus Magnesium Total Bilirubin Direct Bilirubin AST ALT Alkaline Phosphatase Ammonia Total Protein Albumin Globulin Lipase Urine Color Yellow Urine Clarity Sl. Cloudy Urine pH 6.5 Ur Specific Nazlini 1.015 Urine Protein 100 H Urine Glucose (UA) Normal Urine Ketones Negative Urine Occult Blood 250 H Urine Nitrite Negative Urine Bilirubin Negative Urine Urobilinogen Normal Ur Leukocyte Esterase 500 H Urine RBC 50-100 SEEN Urine WBC 0-5 SEEN Ur Squamous Epith Cells 0 SEEN Urine Bacteria 1+ Urine Mucus 0 SEEN POC Glucose Rhythm Strip Rhythm Strip: Sinus Rhythm Rate: 74 Ectopy: None EKG Initial EKG: Attestation: I personally reviewed and interpreted this EKG as follows: Interpretation: Sinus Rhythm Comments: Normal sinus rhythm rate of 74 bpm Normal axis, normal intervals Normal ST segments Management Discussion w/another healthcare provider: Hospitalist Discharge Plan Triage Chief Complaint: General Illness ED Provider: Rachel Joiner Dx/Rx/DC Orders Clinical Impression: Hepatic encephalopathy, Acute alteration in mental status, Hepatic cirrhosis Primary Care Provider: Josy Elias Disposition Disposition: Acute Care Hospital [facility] Discharge Date/Time: 04/07/25 23:38 What to do if you have Problems For any increased pain, shortness of breath, bleeding, nausea or vomiting, chestpain, or any unexpected problems, contact your Primary Care Provider. Call [facility] ([phone]) or report to the closest Emergency Room. Call 911 if necessary. 04/07/25 2352 <Electronically signed by Rachel Joiner DO> Cosigner Signature (if applicable): CC: MERCHANDISING ASSISTANT-C Josy Elias ~ Signed [facility] Work Phone: 1(532) 584-401209-04-2025 History and physical note Author Maria Guadalupe Shore [facility] Note Date/Time April 07, 2025 9:47pm [facility] Medical Records Department [address] [place] [address] H&P Exam - Hospitalist 04/07/252119 MR#: [id number] Acct: [id number] Name: FRANKLIN WIGGINS Rep #:[id number] : [...] following with Dr. Rascon who presents to [facility] ED on 04/28 with increased fatigue, malaise and reported URI type symptoms as well with increasing confusion with blood sugar noted to be 80 prior to ED arrival with episode of nausea and emesis with no fevers or chills prompting patient healthcare power of attorney recruiter his ex- and a friend to care for him topresent him to the ED for further evaluation. Of note patient with recent 03/30/2025 ultrasound-guided placement of tunneled Pleur-X catheter for persistent cirrhotic ascites per Dr. Balderas with unfortunately then follow-up ED visit noted 04/03/2025 with paracentesis tubing unfortunately falling out with decision at that time her healthcare power of attorney recruiter to return the patient to home since [...] 1.76, D bili 1.11, AST/ALT 48/23, alk bawa641, lipase 47, ammonia level 143, urinalysis pending upon requested evaluation of patient. Discussed with ED physician and patient will be administered rectal lactulose. [facility] Medical History Diffuse abdominal pain Acute hepatic [...] (Auto) 67.0, Lymph % (Auto) 16.8 L, Clayton % (Auto) 9.9, Eos % (Auto) 5.2 [...] following with Dr. Rascon who presents to [facility] ED on 04/28 with increased fatigue, malaise and reported URI type symptoms as well with increasing confusion with blood sugar noted to be 80 prior to ED arrival with episode of nausea and emesis with no fevers or chills prompting patient healthcare power of attorney recruiter his ex- and a friend to care [...] Stage II per GFR trending: Admission BUN/Cr 1.04,GFR 83, baseline renal function primarily 0.8-1.1 but [...] 16 minutes. Charges/Coding Visit Charges Inpatient E&M: 59760 Init Hosp L3 Procedures Hospitalists Procedures: 59110 Advncd Care Plan 30 Min 04/07/252146 <Electronically signed by Maria Guadalupe Shore MD> Cosigner Signature (if applicable): CC: YG Elias; Dr. Maria Guadalupe Shore MD~ Signed [facility] Work Phone: 1(510) 915-923809-04-2025 History and physical note Author [facility] Note Date/Time April 07, 2025 9:47pm [facility] Medical Records Department [address] [place] [address] H&P Exam - Hospitalist 04/07/252119 MR#: [id number] Acct: [id number] Name: FRANKLIN WIGGINS Rep #:[id number] : [...] following with Dr. Rascon who presents to [facility] ED on 04/28 with increased fatigue, malaise and reported URI type symptoms as well with increasing confusion with blood sugar noted to be 80 prior to ED arrival with episode of nausea and emesis with no fevers or chills prompting patient healthcare power of attorney recruiter his ex- and a friend to care for him topresent him to the ED for further evaluation. Of note patient with recent 03/30/2025 ultrasound-guided placement of tunneled Pleur-X catheter for persistent cirrhotic ascites per Dr. Balderas with unfortunately then follow-up ED visit noted 04/03/2025 with paracentesis tubing unfortunately falling out with decision at that time her healthcare power of attorney recruiter to return the patient to home since [...] 1.76, D bili 1.11, AST/ALT 48/23, alk [id number], lipase 47, ammonia level 143, urinalysis pending upon requested evaluation of patient. Discussed with ED physician and patient will be administered rectal lactulose. [facility] Medical History Diffuse abdominal pain Acute hepatic [...] x #1,200 ea 01/31/25 Unk nown Rx 16 (Pen Needle) carvedilol 3.125 mg tablet 3.125 [...] (Auto) 67.0, Lymph % (Auto) 16.8 L, Clayton % (Auto) 9.9, Eos % (Auto) 5.2 [...] following with Dr. Rascon who presents to [facility] ED on 04/28 with increased fatigue, malaise and reported URI type symptoms as well with increasing confusion with blood sugar noted to be 80 prior to ED arrival with episode of nausea and emesis with no fevers or chills prompting patient healthcare power of attorney recruiter his ex- and a friend to care [...] Stage II per GFR trending: Admission BUN/Cr 1.04,GFR 83, baseline renal function primarily 0.8-1.1 but [...] 16 minutes. Charges/Coding Visit Charges Inpatient E&M: 29792 Init Hosp L3 Procedures Hospitalists Procedures: 15953 Advncd Care Plan 30 Min 04/07/257 <Electronically signed by Maria Guadalupe Shore MD> Cosigner Signature (if applicable): CC: YG Elias; Dr. Maria Guadalupe Shore MD~ Signed [facility] Work Phone: 1([phone]) 286-109708-27-2025 [facility]08-08-2025 Discharge summary Author Alber Dunn [facility] Note Date/Time March 11, 2025 10: 05pm [facility] Medical Records Department [address] [place] [address] Emergency Department Summary 03/11/25 MR#: [id number] Acct: [id number] Name: FRANKLIN WIGGINS Rep #:[id number] : [...] <PAULETTE Roberts - Last Filed: 03/11/25 22:00> [facility] Medical History Diffuse abdominal pain Acute hepatic [...] 01/31/25 Unk nown Rx 5/16 (Pen Needle) carvedilol 3.125 mg tablet 3.125 [...] <PAULETTE Roberts - Last Filed: 03/11/25 22:00> MDM MDM Narrative Medical decision making narrative: Differential: [...] 70.2 H Lymph % (Auto) 12.6 L Clayton % (Auto) 10.9 H Eos % (Auto) [...] 70.2 H Lymph % (Auto) 12.6 L Clayton % (Auto) 10.9 H Eos % (Auto) [...] run high. Contact [facility]. Print Language: Cape Verdean Disposition Disposition: Home, Self Care What to do if you have Problems For any increased pain, shortness of breath, bleeding, nausea or vomiting, chestpain, or any unexpected problems, contact your Primary Care Provider. Call [facility] ([phone]) or report to the closest Emergency Room. Call 911 if necessary. 03/11/252204 <Electronically signed by Alber Dunn MD> Cosigner Signature (if applicable): 03/11/252199 <Electronically signed by Day CALDWELL> CC: YG Elias ~ Signed [facility] Work Phone: 1([phone]) 564-877807-27-2025 [facility]07-17-2025 [facility]07-16-2025 Discharge summary Author Alber Dunn [facility] Note Date/Time February 16, 2025 6:39 pm [facility] Medical Records Department [address] [place] [address] [place] [address] Emergency Department Summary 02/16/25 MR#: [id number] Acct: [id number] Name: FRANKLIN WIGGINS Rep #:[id number] : [...] Recent Illness/Hospitalization: No PFSH PFS Medical History VRE (vancomycin resistant enterococcus) culture [...] liver enzymes. Patient will be admitted to [facility]. History & Record Review Discussion [...] diabetes mellitus Disposition Disposition: Acute Care Hospital [facility] What to do if you have Problems For any increased pain, shortness of breath, bleeding, nausea or vomiting, chestpain, or any unexpected problems, contact your Primary Care Provider. Call [facility] ([phone]) or report to the closest Emergency Room. Call 911 if necessary. 02/16/25 1836 <Electronically signed by Alber Dunn MD> Cosigner Signature (if applicable): CC: Dr. Jerald Sherwood MD ~ Signed [facility] Work Phone: 1(208) 541-127307-16-2025 Procedure [facility] 02-13-2025 Radiology Diagnostic study [facility]07-11-2025 Radiology Diagnostic study [facility]07-08-2025 Radiology Diagnostic study [facility]06-30-2025 Discharge summary Author Yaritza Leo [facility] Note Date/Time January 31, 2025 2:41 pm [facility] Medical Records Department [address] [place] [address] Discharge Summary 01/31/25 1217 MR#: [id number] Acct: [id number] Name: FRANKLIN WIGGINS Rep #:[id number] : 1965 59 From: Yaritza Leo DO PCP: Dr. Jerald Sherwood MD Status:ADM I N Location: [place] [address] Providers Date of Admission: 01/28/25 Date of [...] Final Vancomycin Resist. E. faecalis GNR lactose barkeeper 01/28/25 06:15 Blood Culture (Wb) - Anticubital [...] Qty: 15 3RF Referrals / Follow Up: Sherwood,Jerald, MD [Primary Care Provider] - Within 1 Week Disposition Disposition (needs filled in before D/C Order can be placed): Home, Self Care Charges/Coding Visit Charges Inpatient E&M: 80525 Disch Hosp >30min 01/31/25 1441 <Electronically signed by Yaritza Leo DO> Cosigner Signature (if applicable): CC: Dr. Yaritza Leo DO; Dr. Jerald Sherwood MD~ Signed [facility] Work Phone: 1(783) 222-806606-30-2025 [facility]06-30-2025 Hospital Discharge instructionsAdditional Instructions 1. Goal bowel movements with lactulose is 2-3 bowel movements daily. If you are having more than 3 bowel movements daily please decrease your lactulose from 3 times daily to 2 times daily 2. It is very important that you are compliant with your medications and utilize them as directed Date of Discharge: 01/31/25[facility] Work Phone: 1(111) [phone] Progress note Author Yaritza Leo [facility] Note Date/Time January 30, 2025 1:37 pm [facility] Medical Records Department [address] [place] [address] Progress Note - Hospitalist 01/30/25 0728 MR#: [id number] Acct: [id number] Name: FRANKLIN WIGGINS Rep #:[id number] : 1965 59 From: Yaritza Leo DO PCP: Dr. Jerald Sherwood MD Status:ADM I N Location: [place] [address] Reason for Visit Reason for Visit: Fever [...] Neut % (Auto) 53.2, Lymph % (Auto) 20.0,Clayton % (Auto) 18.5 H, Eos % (Auto) [...] Preliminary GPC Poss Enterococcus sp GNR lactose barkeeper 01/28/25 03:10 Mucosa - Nose SARS-CoV-2, Influenza [...] Full code Charges/Coding Visit Charges Inpatient E&M: 24660 Subs Hosp L2 01/30/25 1337 <Electronically signed by Yaritza Leo DO> Cosigner Signature (if applicable): CC: ~ Signed [facility] Work Phone: 1(295) 825-983706-28-2025 Progress note Author Yaritza Leo [facility] Note Date/Time January 29, 2025 5:59 pm [facility] Medical Records Department [address] [place] [address] Progress Note - Hospitalist 01/29/25 0754 MR#: [id number] Acct: [id number] Name: FRANKLIN WIGGINS Rep #:[id number] : 1965 59 From: Yaritza Leo DO PCP: Dr. Jerald Sherwood MD Status:ADM I N Location: [place] [address] Reason for Visit Reason for Visit: Fever [...] (Auto) 60.8, Lymph % (Auto) 17.1 L, Clayton % (Auto) 15.2 H, Eos % (Auto) [...] Full code Charges/Coding Visit Charges Inpatient E&M: 98619 Subs Hosp L2 01/29/25 7453 <Electronically signed by Yaritza Leo DO> Cosigner Signature (if applicable): CC: ~ Signed [facility] Work Phone: 1(884) [phone] History and physical note Author Boone Izquierdo [facility] Note Date/Time January 28, 2025 7:26 am [facility] Medical Records Department [address] [address] H&P Exam - Hospitalist 01/28/25 0710 MR#: [id number] Acct: [id number] Name: FRANKLIN WIGGINS Rep #:[id number] : 1965 59 From: Boone Izquierdo DO PCP: Dr. Jerald Sherwood MD Status:REG E R Location: ED HPI - General General Date of Service: 01/28/25 Chief Complaint: Fever. HPI Narrative FRANKLIN WIGGINS, is a 59 M who presents with fever from the [facility]. This ashely 59-year-old male with cirrhosis presents with fever and confusion from the [facility]. In emergency room, he was afebrile but [...] stable in the emergencyroom without fluid resuscitation. [facility] Medical History (Updated 01/28/25 @ 07:16 by [...] (Auto) 57.8, Lymph % (Auto) 18.8 L, Clayton % (Auto) 16.7 H, Eos % (Auto) [...] Clarity Cloudy, Urine pH 8.0, Ur Specific Nazlini 1.015, Urine Protein 100 H, Urine Glucose [...] pulmonary changes. [facility]Pelvis CT 01/28/25 05:12 IMPRESSION: Cirrhosis, collateral [...] correlate for possible hepatic colopathy. Reading Location: [place] [address] Assessment & Plan Assessment/Plan (1) Hepatic encephalopathy: [...] be continued. Charges/Coding Visit Charges Inpatient E&M: 67137 Init Hosp L3 01/28/25 0726 <Electronically signed by Boone Izquierdo DO> Cosigner Signature (if applicable): CC: Dr. Boone Izquierdo DO; Dr. Jerald Sherwood MD~ Signed [facility] Work Phone: 1(715) 187-535506-27-2025 History and physical note Author Boone Izquierdo [facility] Note Date/Time January 28, 2025 7:26 am [facility] Medical Records Department [address] [place] [address] H&P Exam - Hospitalist 01/28/25 0710 MR#: [id number] Acct: [id number] Name: FRANKLIN WIGGINS Rep #:[id number] : 1965 59 From: Boone zIquierdo DO PCP: Dr. Jerald Sherwood MD Status:REG E R Location: ED HPI - General General Date of Service: 01/28/25 Chief Complaint: Fever. HPI Narrative FRANKLIN WIGGINS, is a 59 M who presents with fever from the [facility]. This ashely 59-year-old male with cirrhosis presents with fever and confusion from the [facility]. In emergency room, he was afebrile but [...] stable in the emergencyroom without fluid resuscitation. [facility] Medical History (Updated 01/28/25 @ 07:16 by [...] (Auto) 57.8, Lymph % (Auto) 18.8 L, Clayton % (Auto) 16.7 H, Eos % (Auto) [...] Clarity Cloudy, Urine pH 8.0, Ur Specific Nazlini 1.015, Urine Protein 100 H, Urine Glucose [...] be continued. Charges/Coding Visit Charges Inpatient E&M: 19491 Init Hosp L3 01/28/25 0726 <Electronically signed by Boone Izquierdo DO> Cosigner Signature (if applicable): CC: Dr. Boone Izquierdo DO; Dr. Jerald Sherwood MD~ Signed [facility] Work Phone: 1([phone]) [phone] Discharge summary Author Danny Hutton [facility] Note Date/Time January 28, 2025 6:59 am [facility] Medical Records Department [address] [place] [address] Emergency Department Summary 01/28/25 MR#: [id number] Acct: [id number] Name: FRANKLIN WIGGINS Rep #:[id number] : 1965 59 From: Danny christy DO PCP: Dr. Jerald Sherwood MD Status:REG E R Location: ED HPI History of Present Illness Chief Complaint: Confusion Narrative Narrative: Chief complaint and HPI: Fever and confusion. 59-year-old male with past medical history DM2, ABBY, HTN, HLD, liver 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 presents from [facility] for fever and confusion. History taken by [...] diarrhea, constipation, dysuria. I personally spoke with [facility] staff. The nurse is new to taking [...] Alert, grossly intact, sensation intact Psych: Cooperative [facility] Medical History Umbilical hernia Chronic hyponatremia Weakness [...] liver 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 presents from [facility] for fever and confusion. Patient is a poor historian therefore history taken by EMS as well as [facility] nurse. Reported patient developed a fever of 101 ?F this evening prior to arrival. No meds were given. Nurse as well as myself does not know the patient's baseline mental status although nursing staff here that note is the patient states that wax and wanes. Nurse there states that multiple techs felt that the patient wasconfused at [facility] and that he was asking about people [...] (Auto) 57.8 Lymph % (Auto) 18.8 L Clayton % (Auto) 16.7 H Eos % (Auto) [...] Color Urine Clarity Urine pH Ur Specific Nazlini Urine Protein Urine Glucose (UA) Urine Ketones Urine Occult Blood Urine Nitrite Urine Bilirubin Urine Urobilinogen Ur Leukocyte Esterase Urine RBC Urine WBC Ur Squamous Epith Cells Urine Bacteria Urine Mucus 01/28/25 01/28/25 04:33 04:58 WBC RBC Hgb Hct MCV MCH MCHC RDW Std Deviation RDW Coeff of Francis Plt Count MPV Immature Gran % (Auto) Neut % (Auto) Lymph % (Auto) Clayton % (Auto) Eos % (Auto) Baso % [...] Clarity Cloudy Urine pH 8.0 Ur Specific Nazlini 1.015 Urine Protein 100 H Urine Glucose [...] pulmonary changes. Reading [facility] Ab[facility]en/Pelvis CT 01/28/25 05:12 IMPRESSION: Cirrhosis, collateral [...] correlate for possible hepatic colopathy. Reading Location: [place] [address] Discharge Plan Triage Chief Complaint: Confusion ED [...] MD [Primary Care Provider] - Print Language: Cape Verdean What to do if you have Problems For any increased pain, shortness of breath, bleeding, nausea or vomiting, chestpain, or any unexpected problems, contact your Primary Care Provider. Call [facility] ([phone]) or report to the closest Emergency Room. Call 911 if necessary. 01/28/25 0659 <Electronically signed by Danny Hutton DO> Cosigner Signature (if applicable): CC: Dr. Jerald Sherwood MD ~ Signed [facility] Work Phone: 1(888) 967-999506-27-2025 Radiology Diagnostic study [facility]06-27-2025 Radiology Diagnostic study [facility]06-20-2025 Discharge summary Author Anurag Irene [facility] Note Date/Time January 21, 2025 11:1 2am [facility] Medical Records Department [address] [place] [address] Transfer to [facility] MR#: [id number] Acct: [id number] Name: FRANKLIN WIGGINS Rep #:[id number] : 1965 59 From: Anurag Lucero PCP: YG Pena Status:ADM I N Certification of patient admission REQUIRED AT TIME OF ADMISSION. I CERTIFY THAT POST-HOSPITAL [facility] SERVICES ARE REQUIRED TO BE GIVEN ON AN IN-PATIENT BASIS BECAUSE OF THE ABOVE NAMED PATIENT'S NEED FOR [facility] CARE ON A CONTINUING BASIS FOR THE CONDITION(S) FOR WHICH HE/SHE WAS RECEIVING IN-PATIENT HOSPITAL SERVICES PRIOR TO HIS/HER TRANSFER TO THE [facility]. 01/21/25 1112<Electronically signed by Anurag Irene [...] (Auto) 63.5, Lymph % (Auto) 16.3 L, Clayton % (Auto) 11.9 H, Eos % (Auto) [...] Instructions Additional Instructions / Restrictions: Follow-up in [facility] hepatology/GI. Discharge Orders/Prescriptions Prescriptions: New spironolactone [...] in before D/C Order can be placed): [facility] Facility 01/21/25 1112 <Electronically signed by Anurag Irene MD> Cosigner Signature (if applicable): CC: YG Elias; Dr. Aleyda Bautista MD; Dr. Yaritza Leo DO; Dr. Cielo Tovar MD; Dr. Jefferson Malave MD ~ [facility] Work Phone: 1(645) 533-325806-20-2025 Discharge summary Author Anurag Irene [facility] Note Date/Time January 21, 2025 1:29 pm [facility] Medical Records Department [address] [place] [address] Discharge Summary 01/21/25 1112 MR#: [id number] Acct: [id number] Name: FRANKLIN WIGGINS Rep #:[id number] : 1965 59 From: Anurag Lucero PCP: YG Pena Status:ADM I N Location: [place] [address] Providers Date of Admission: 01/09/25 Date of Discharge: 01/21/25 Primary Care Physician: YG Pena Consultations 01/09/25 15:46 Consult: Crime Scene Evidence Technician / Pulmonary Medicine Routine Consulting Provider: Intensivists/Pulmonary [...] (Auto) 63.5, Lymph % (Auto) 16.3 L, Clayton % (Auto) 11.9 H, Eos % (Auto) [...] solution (Constulose) 15 ml PO TID PRN edhwxxegbinf59/27/25 L.acidophil,salivari-Bifido bifidum-Strep thermoph 175 mg capsule 1 [...] Instructions Additional Instructions / Restrictions: Follow-up in [facility] hepatology/GI. Discharge Orders/Prescriptions Prescriptions: New spironolactone [...] in before D/C Order can be placed): [facility] Facility Charges/Coding Visit Charges Inpatient E&M: 70814 Disch Hosp >30min 01/21/25 1117 <Electronically signed [...] Irene MD> Cosigner Signature (if applicable): cc: MERCHANDISING ASSISTANTKayleigh Elias; Dr. Anurag Irene MD ~* Signed [facility] Work Phone: 1(177) 336-523606-20-2025 [facility]06-19-2025 Progress note Author Anurag Irene [facility] Note Date/Time January 20, 2025 2:40 pm [facility] Medical Records Department [address] [place] [address] Progress Note - Hospitalist 01/20/25 1436 MR#: [id number] Acct: [id number] Name: FRANKLIN WIGGINS Rep #:[id number] : 1965 59 From: Anurag Lucero PCP: YG Pena Status:ADM I N Location: [place] [address] Reason for Visit Reason for Visit: Diagnoses [...] (Auto) 63.5, Lymph % (Auto) 16.3 L, Clayton % (Auto) 11.9 H, Eos % (Auto) [...] (Auto) 63.5, Lymph % (Auto) 16.3 L, Clayton % (Auto) 11.9 H, Eos % (Auto) [...] 167 H Charges/Coding Visit Charges Inpatient E&M: 98417 Subs Hosp L2 01/20/25 1440 <Electronically signed by Anurag Irene MD> Cosigner Signature (if applicable): CC: ~ Signed [facility] Work Phone: 1(991) 821-129406-18-2025 Progress note Author Anurag Irene [facility] Note Date/Time January 19, 2025 4:46 pm [facility] Medical Records Department [address] [place] [address] Progress Note - Hospitalist 01/19/25 0919 MR#: [id number] Acct: [id number] Name: FRANKLIN WIGGINS Rep #:[id number] : 1965 59 From: Anurag Lucero PCP: YG Pena Status:ADM I N Location: [place] [address] Reason for Visit Reason for Visit: Diagnoses [...] WBCs % 75.6, Fluid Neutrophils 20, Fluid Smzsdjcaacy11, Fluid Monocytes 3, Fluid Macrophages 46, Fluid [...] (Auto) 67.7, Lymph % (Auto) 13.6 L, Clayton % (Auto) 11.0 H, Eos % (Auto) [...] gas. Correlate with surgical history. Reading Location: [id number] Paracentesis Ultrasound 01/18/25 13:08 IMPRESSION: Right lower quadrant marker was applied for paracentesis with drain the fluid volume of 2650 cc. Reading [facility] Physical Exam Narrative Seen and examined Discussed [...] WBCs % 75.6, Fluid Neutrophils 20, Fluid Fnouzmqfend84, Fluid Monocytes 3, Fluid Macrophages 46, Fluid [...] (Auto) 67.7, Lymph % (Auto) 13.6 L, Clayton % (Auto) 11.0 H, Eos % (Auto) [...] 198 H Charges/Coding Visit Charges Inpatient E&M: 62186 Subs Hosp L2 01/19/25 1646 <Electronically signed by Anurag Irene MD> Cosigner Signature (if applicable): CC: ~ Signed [facility] Work Phone: 1([phone]) 923-559706-18-2025 Radiology Diagnostic study [facility]06-17-2025 Radiology Diagnostic study [facility]06-17-2025 Progress note Author Anurag Irene [facility] Note Date/Time January 18, 2025 1:14 pm [facility] Medical Records Department [address] [place] [address] Progress Note - Hospitalist 01/18/25 1302 MR#: [id number] Acct: [id number] Name: FRANKLIN WIGGINS Rep #:[id number] : 1965 59 From: Anurag Lucero PCP: YG Pena Status:ADM I N Location: [place] [address] Reason for Visit Reason for Visit: Diagnoses [...] (Auto) 68.1, Lymph % (Auto) 14.0 L, Clayton % (Auto) 10.0, Eos % (Auto) 6.1 [...] prophylaxis: SCDs Charges/Coding Visit Charges Inpatient E&M: 46828 Subs Hosp L2 01/18/25 1314 <Electronically signed by Anurag Irene MD> Cosigner Signature (if applicable): CC: ~ Signed [facility] Work Phone: 1([phone]) 309-309506-17-2025 Consult note Author Mohit Santos [facility] Note Date/Time January 18, 2025 12:4 9pm [facility] Medical Records Department [address] [place] [address] Pre-Anesthesia Evaluation 01/18/25 1246 MR#: [id number] Acct: [id number] Name: FRANKLIN WIGGINS Rep #:[id number] : 1965 59 From: Mohit Santos MD PCP: YG Pena Status:ADM I N Y Race: C Location: [place] [address] 2-1 ASA Classification* ASA Classification ASA Classification: [...] 01/18/25 05:01/18/25 Phosphorus 3.7 mg/dL (2.7-4.5) 01/18/25 05:21 01/18/25 BUN 8 mg/dL (4-19) 01/18/25 05:21 01/18/25 Creatinine 0.85 mg/dL (0.70-1.20) 01/18/25 05:21 01/18/25 Glucose 228 mg/dL (70-99) H 01/18/25 05:21 01/18/25 POC Glucose 142 mg/dL (74-106) H 01/18/25 11:30 01/18/25 TSH 0.826 uIU/mL (0.358-3.740) 09/04/24 23:07 08/28 COAG PT 22.9 SECONDS (11.7-14.9) H 01/18/25 05:21 01/02 02/25 Pre-Assessment Diagnosis/Proposed Procedure Planned Operative Procedure(s): Lumbar steroid injection L1/L2 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 Hx Hospitalization Any Problems With Anesthesia [...] am of surgery tylenol PONV PONV - 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: 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 - 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 Female HX of Motion Sickness HX of N/V After Surgery Non-Smoker Duration of Surgery greater than 60 minutes Number of Risk Factors PONV Score Height & Weight Height & Weight: Anesthesia: Height & Weight Height 5 ft 9 in 01/17/25 14:51 Weight: 111.3 kg 01/18/25 08:57 Body Mass Index (BMI) 36.2 01/18/25 03:51 Respiratory Assessment Respiratory Assessment - 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: Respiratory Tract Infection Hx - 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 Hx Respiratory Tract Infection No 01/18/25 09:01 STOP Sleep Apnea STOP Sleep Apnea - 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: STOP Sleep Apnea - 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 Hx Hypertension No 01/10/25 10:46 Hx [...] Tobacco Use History Tobacco Use History - 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: Tobacco Use History - 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 Tobacco Use Smoking Status Former smoker 01/10/25 09:20 Hx Tobacco Use Yes 01/09/25 15:31 Years Smoking Packs Smoked per Day Smoking Cessation Date was Yes - quit smoking within 15 01/09/25 15:31 within the last 15 years years Hx Smoking Cessation Date 05/04/24 01/09/25 15:31 Hx Smoking Cessation Counseling Hematologic Medial History Hematologic Hx - 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: 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 Hx of Blood Transfusion No 01/09/25 15:31 [...] confused, unrespo /Reproduction History /Reproductive History - 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: /Reproductive Hx- 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 Hx Now No 01/18/25 09:01 Gestational [...] 40 Mg Tablet PO 40 mg DAILY [facility] Administration Calcium/Vitamin D 1 tablet 01/10/25 10:00 01/18/25 11:32 Calcium Carb/Vitamin D 1 Tablet Tablet PO Not Given DAILY [facility] Cyclobenzaprine HCl 10 mg 01/09/25 22:00 01/17/25 21:05 Cyclobenzaprine Hcl 10 Mg Tablet PO 10 mg QHS [facility] Administration Ferrous Sulfate 325 mg 01/10/25 12:00 01/18/25 11:33 Ferrous Sulfate 325 Mg Tablet PO Not Given Q48@1200 [facility] Folic Acid 1 mg 01/10/25 08:00 01/18/25 11:31 Folic Acid 1 Mg Tablet PO Not Given BREAKFAST [facility]RY[facility] Sodium Chloride 250 mls @ 15 mls/hr 01/09/25 15:34 IV .[id number] PRN Saline Flush Sodium Chloride 250 mls @ 15 mls/hr 01/09/25 15:34 IV .[id number] PRN Additional IVPB Infusion Sodium Chloride 1,000 mls @ 15 mls/hr 01/18/25 12:45 IV .Q48H [facility] Insulin Glargine 20 unit 01/09/25 22:00 01/17/25 21:05 Insulin Glargine-Yfgn 100 Unit/Ml Pen SC 20 unit QHS [facility] Administration Insulin Glargine 20 unit 01/10/25 10:00 01/18/25 11:31 Insulin Glargine-Yfgn 100 Unit/Ml Pen SC Not Given DAILY [facility] Insulin Human Lispro 0 unit 01/09/25 16:00 01/18/25 11:33 Insulin Lispro 100 Unit/Ml Insuln.Pen SC Not Given ACHS [facility] Protocol Lactulose 10 gm 01/09/25 15:46 01/12/25 14:34 Lactulose 20 Gm/30 Ml Udc PO 10 gm TID PRN Administration constipation Magnesium Chloride 128 mg 01/10/25 10:00 01/18/25 11:31 Magnesium Chloride 64 Mg Delay Rel.Tablet PO Not Given DAILY [facility] Midodrine 10 mg 01/09/25 17:00 01/18/25 [...] 20 Mg Tablet PO Not Given DAILY [facility] Potassium Phos/Sodium Phos 1 packet 01/09/25 22:00 01/18/25 11:32 Na Biphos/Potassium Phosphate Packet PO Not Given BID [facility] Rifaximin 550 mg 01/09/25 22:00 01/17/25 21:06 Rifaximin 550 Mg Tablet PO 550 mg BID [facility] Administration Sodium Bicarbonate 650 mg 01/09/25 22:00 01/18/25 11:32 Sodium Bicarbonate 650 Mg Tablet PO Not Given BID [facility] Sodium Chloride 10 - 40 ml 01/09/25 15:34 01/18/25 08:33 0.9% Saline Lock 10 Ml Syringe IV 20 ml UD PRN Administration SALINE FLUSH Thiamine HCl 100 mg 01/10/25 10:00 01/18/25 11:32 Thiamine Hydrochloride 100 Mg Tablet PO Not Given DAILY [facility] Medical History (Updated 01/17/25 @ 16:52 by [...] MD Cosigner Signature: Date CC: ~ Signed [facility] Work Phone: 1(125) 731-376406-16-2025 Consult note Author Buster Carmichael [facility] Note Date/Time January 17, 2025 4:57 pm [facility] Medical Records Department [address] [place] [address] Consultation 01/17/25 1522 MR#: [id number] Acct: [id number] Name: FRANKLIN WIGGINS Rep #:[id number] : 1965 59 From: Buster brewster MD PCP: YG Pena Status:ADM I N Location: [place] [address] Assessment & Plan Assessment/Plan (1) Spinal stenosis, [...] be 8- 10/10 in severity when moving. [facility] Medical History (Updated 01/17/25 @ 16:52 by [...] (Auto) 67.2, Lymph % (Auto) 12.9 L, Clayton % (Auto) 11.5 H, Eos % (Auto) 6.8 H, Baso % (Auto) 0.5, Absolute Neuts (auto) 5.7, Absolute Lymphs (auto) 1.09, Nucleated RBC % 0 01/17/25 06:28: POC Glucose 173 H 01/17/25 11:26: POC Glucose 141 H 01/17/25 1657 <Electronically signed by Buster Carmichael MD> Cosigner Signature (if applicable): CC: YG Elias~ Signed [facility] Work Phone: 1(942) 104-886006-16-2025 Progress note Author Anurag Irene [facility] Note Date/Time January 17, 2025 2:32 pm [facility] Medical Records Department [address] [place] [address] Progress Note - Hospitalist 01/17/25 1420 MR#: [id number] Acct: [id number] Name: FRANKLIN WIGGINS Rep #:[id number] : 1965 59 From: Anurag Lucero PCP: YG Pena Status:ADM I N Location: [place] [address] Reason for Visit Reason for Visit: Diagnoses [...] (Auto) 67.2, Lymph % (Auto) 12.9 L, Clayton % (Auto) 11.5 H, Eos % (Auto) [...] prophylaxis: SCDs Charges/Coding Visit Charges Inpatient E&M: 54452 Subs Hosp L2 01/17/25 1432 <Electronically signed by Anurag Irene MD> Cosigner Signature (if applicable): CC: ~ Signed [facility] Work Phone: 1(327) 118-503006-16-2025 [facility]06-15-2025 Progress note Author Cielo [facility] Note Date/Time January 16, 2025 3:37 pm [facility] Medical Records Department [address] [place] [address] Progress Note 01/16/25 1236 MR#: [id number] Acct: [id number] Name: FRANKLIN WIGGINS Rep #:[id number] : 1965 59 From: Cielo Tovar MD PCP: YG Pena Status:ADM I N Location: [place] [address] Subjective Subjective Patient seen and examined. He [...] (Auto) 64.9, Lymph % (Auto) 14.6 L, Clayton % (Auto) 12.7 H, Eos % (Auto) [...] at home. Charges/Coding Visit Charges Inpatient E&M: 61982 Subs Hosp L2 01/16/25 3823 <Electronically signed by Cielo Tovar MD> Cielo Tovar MD Cosigner Signature (if applicable): CC: ~ Signed [facility] Work Phone: 1(893) 353-966306-14-2025 Consult note Author Buster Hahn [facility] Note Date/Time January 15, 2025 6:46 pm [facility] Medical Records Department [address] [place] [address] Pharmacokinetic/Renal -Consult 01/15/256 MR#: [id number] Acct: [id number] Name: FRANKLIN WIGGINS Rep #:[id number] : 1965 59 From: Buster Lopes [facility] PCP: YG Pena Status:ADM I N Y Location: [place] [address] Consult Antibiotic Management Pharmacy has been consulted [...] Vancomycin (random level 01/16/25 at 0600) 01/15/25 9396 <Electronically signed by Buster Nieves [facility]> Date _ Buster Hahn [facility] Cosigner Signature (if applicable): Date CC: ~ Signed [facility] Work Phone: 1(686) 560-469106-14-2025 Progress note Author Cielodevante Tovar [facility] Note Date/Time January 15, 2025 6:29 pm [facility] Medical Records Department [address] [place] [address] Progress Note 01/15/25 1321 MR#: [id number] Acct: [id number] Name: FRANKLIN WIGGINS Rep #:[id number] : 1965 59 From: Cielo Tovar MD PCP: YG Pena Status:ADM I N Location: [place] [address] Subjective Subjective Patient seen and examined. He [...] (Auto) 65.6, Lymph % (Auto) 13.2 L, Clayton % (Auto) 13.6 H, Eos % (Auto) [...] at multiple levels, as described. Reading Location: [place] [address] Physical Exam Const alert, oriented x3 and [...] at home. Charges/Coding Visit Charges Inpatient E&M: 48872 Subs Hosp L2 01/15/25 9262 <Electronically signed by Cielo Tovar MD> Cielo Tovar MD Cosigner Signature (if applicable): CC: ~ Signed [facility] Work Phone: 1(862) 403-986406-13-2025 Consult note Author Andreia Carvalho [facility] Note Date/Time January 14, 2025 8:04 pm [facility] Medical Records Department [address] [place] [address] Pharmacokinetic/Renal -Consult 01/14/252002 MR#: [id number] Acct: [id number] Name: FRANKLIN WIGGINS Rep #:[id number] : 1965 59 From: Andreia Carvalho PCP: YG Pena Status:ADM I N Y Location: [place] [address] Consult Antibiotic Management Pharmacy has been consulted [...] Signature (if applicable): Date CC: ~ Signed [facility] Work Phone: 1([phone]) 597-240306-13-2025 Progress note Author Cielo [facility] Note Date/Time January 14, 2025 5:19 pm [facility] Medical Records Department [address] [place] [address] Progress Note 01/14/251705 MR#: [id number] Acct: [id number] Name: FRANKLIN WIGGINS Rep #:[id number] : 1965 59 From: Cielo Tovar MD PCP: YG Pena Status:ADM I N Location: [place] [address] Subjective Subjective Patient seen and examined. He [...] (Auto) 65.3, Lymph % (Auto) 13.5 L, Clayton % (Auto) 14.3 H, Eos % (Auto) [...] at multiple levels, as described. Reading Location: [place] [address] Thoracic Spine MRI 01/13/25 10:30 IMPRESSION: Abnormal marrow signal at T12 and L1. No acute compression deformity identified. Can not exclude metastatic involvement of these 2 vertebral bodies. Degenerative changes in the remainder of the lumbar spine. There is mild spinal stenosis at the level of T10-T11 and T11-T12. The patient could not tolerate postcontrast imaging. There is no cord compression [facility] 01/14/25 08:06 IMPRESSION: 1. Partially visualized severe degenerative changes of T11-T12 with areas of erosive changes and lytic lesions. Metastasis can not be excluded. 2. Cirrhosis and ascites. 3. Mild lung emphysema. No suspicious nodules or focal consolidation. Reading Location: [place] Physical Exam Const alert, oriented x3 and [...] medically stable. Charges/Coding Visit Charges Inpatient E&M: 16067 Subs Hosp L2 01/14/25 4335 <Electronically signed by Cielo Tovar MD> Cielo Tovar MD Cosigner Signature (if applicable): CC: ~ Signed [facility] Work Phone: 1(411) 755-143906-13-2025 Radiology Diagnostic study [facility]06-12-2025 Progress note Author Cielo [facility] Note Date/Time January 13, 2025 6:28 pm [facility] Medical Records Department [address] [place] [address] Progress Note 01/13/25 1517 MR#: [id number] Acct: [id number] Name: FRANKLIN WIGGINS Rep #:[id number] : 1965 59 From: Cielo Tovar MD PCP: YG Pena Status:ADM I N Location: [place] [address] Subjective Subjective Patient seen and examined. He [...] (Auto) 65.6, Lymph % (Auto) 14.4 L, Clayton % (Auto) 13.7 H, Eos % (Auto) [...] medically stable. Charges/Coding Visit Charges Inpatient E&M: 74448 Subs Hosp L2 01/13/25 0759 <Electronically signed by Cielo Tovar MD> Cielo Tovar MD Cosigner Signature (if applicable): CC: ~ Signed [facility] Work Phone: 1(302) 842-129806-12-2025 Consult note Author Francheska Montoya [facility] Note Date/Time January 13, 2025 9:36 am [facility] Medical Records Department [address] [place] [address] Pharmacokinetic/Renal -Consult 01/13/25 0934 MR#: [id number] Acct: [id number] Name: FRANKLIN WIGGINS Rep #:[id number] : 1965 59 From: Francheska Mcfarlane PCP: YG Pena Status:ADM I N Y Location: [place] [address] Consult Antibiotic Management Pharmacy has been consulted [...] Signature (if applicable): Date CC: ~ Signed [facility] Work Phone: 1(587) 284-869406-11-2025 Progress note Author Cielo Tovar [facility] Note Date/Time January 12, 2025 4:51 pm [facility] Medical Records Department [address] [place] [address] Progress Note 01/12/25 1646 MR#: [id number] Acct: [id number] Name: FRANKLIN WIGGINS #:[id number] : 1965 59 From: Cielo Tovar MD PCP: YG Pena Status:ADM I N Location: [place] [address] Subjective Subjective Patient seen and examined. He [...] (Auto) 68.2, Lymph % (Auto) 11.6 L, Clayton % (Auto) 12.1 H, Eos % (Auto) [...] his facility. Charges/Coding Visit Charges Inpatient E&M: 35054 Subs Hosp L2 01/12/25 1651 <Electronically signed by Cielo Tovar MD> Cielo Tovar MD Cosigner Signature (if applicable): CC: ~ Signed [facility] Work Phone: 1(906) 334-479606-11-2025 Consult note Author Dilcia Vanessa [facility] Note Date/Time January 11, 2025 10:4 8pm [facility] Medical Records Department [address] [place] [address] Pharmacokinetic/Renal -Consult 01/11/251942 MR#: [id number] Acct: [id number] Name: FRANKLIN WIGGINS Rep #:[id number] : 1965 59 From: Dilcia Vanessa PCP: Josy Elias MERCHANDISING ASSISTANT-C Status:ADM I N Y Location: [place] [address] Consult Antibiotic Management Pharmacy has been consulted [...] Dilcia montalvo> Date _ Dilcia Vanessa 01/11/25 0057 <Electronically signed by Yaritza Holland> Cosigner Signature (if applicable): Date Yaritza Leo DO CC: ~ Signed [facility] Work Phone: 1(666) 870-372006-10-2025 Progress note Author Cielo [facility] Note Date/Time January 11, 2025 5:51 pm [facility] Medical Records Department [address] [place] [address] Progress Note 01/11/25 1510 MR#: [id number] Acct: [id number] Name: FRANKLIN WIGGINS Rep #:[id number] : 1965 59 From: Cielo Tovar MD PCP: YG Pena Status:ADM I N Location: [place] [address] Subjective Subjective Patient seen and examined. He [...] % (Auto) Cancelled, Lymph % (Auto) Cancelled, Clayton % (Auto) Cancelled, Eos % (Auto) Cancelled, [...] Cells Cancelled, Ovalocytes Cancelled, Stomatocytes Cancelled, [place] Bodies Cancelled, [place] Cells Cancelled, Bite Cells Cancelled, Crenated Cell [...] (Auto) 69.6, Lymph % (Auto) 12.6 L, Clayton % (Auto) 11.8 H, Eos % (Auto) 4.6, Baso % (Auto) 0.5, Absolute Neuts (auto) 5.6, Absolute Lymphs (auto) 1.01, Nucleated RBC % 0 06/10/25 12:12: POC Glucose 268 H Micro: Microbiology [...] of anemia Charges/Coding Visit Charges Inpatient E&M: 42118 Subs Hosp L2 01/11/25 1751 <Electronically signed by Cielo Tovar MD> Cielo Tovar MD Cosigner Signature (if applicable): CC: ~ Signed [facility] Work Phone: 1([phone] 666-154406-10-2025 Consult note Author Jefferson Malave [facility] Note Date/Time January 11, 2025 4:41 pm [facility] Medical Records Department [address] [place] [address] Consultation - Surgical 01/11/25 1634 MR#: [id number] Acct: [id number] Name: FRANKLIN WIGGINS Rep #:[id number] : 1965 59 From: Jefferson Malave MD PCP: YG Pena Status:ADM I N Location: [place] [id number]- 1 Assessment & Plan Assessment/Plan (1) Umbilical [...] findings on CT consistent with portal hypertension. [facility] Medical History (Updated 01/11/25 @ 16:41 by [...] % (Auto) Cancelled, Lymph % (Auto) Cancelled, Clayton % (Auto) Cancelled, Eos % (Auto) Cancelled, [...] Cells Cancelled, Ovalocytes Cancelled, Stomatocytes Cancelled, [place] Bodies Cancelled, [place] Cells Cancelled, Bite Cells [...] (Auto) 69.6, Lymph % (Auto) 12.6 L, Clayton % (Auto) 11.8 H, Eos % (Auto) [...] 48 hours. Charges/Coding Visit Charges Inpatient E&M: 59502 Init Hosp L3 01/11/25 1641 <Electronically signed by Jefferson Malave MD> Cosigner Signature (if applicable): CC: YG Elias~ Signed [facility] Work Phone: 1(280) 761-976406-10-2025 Progress note Author Bola Meraz [facility] Note Date/Time January 11, 2025 9:07 am [facility] Medical Records Department [address] [place] [address] Progress Note - Crime Scene Evidence Technician 01/11/25 0722 MR#: [id number] Acct: [id number] Name: FRANKLIN WIGGINS Rep #:[id number] : 1965 59 From: Bola Meraz DO PCP: Josy Elias, MERCHANDISING ASSISTANT-C Status:ADM I N Location: ICU CVICU20 1-1 [...] scheduled midodrine. This note was generated with [employer] dictation software. It may contain incorrectwords, spelling, [...] % (Auto) Cancelled, Lymph % (Auto) Cancelled, Clayton % (Auto) Cancelled, Eos % (Auto) Cancelled, [...] Cells Cancelled, Ovalocytes Cancelled, Stomatocytes Cancelled, [place] Bodies Cancelled, Paloma Cells Cancelled, Bite Cells [...] (Auto) 69.6, Lymph % (Auto) 12.6 L, Clayton % (Auto) 11.8 H, Eos % (Auto) [...] liver masses identified. Reading Location: [facility] Physical Exam Const [...] flat affect Charges/Coding Visit Charges Inpatient E&M: 48455 Subs Hosp L2 01/11/25 0907 <Electronically signed by Bola Meraz DO> Cosigner Signature (if applicable): CC: ~ Signed [facility] Work Phone: [phone]) [phone] Consult note Author Boone Garcia [facility] Note Date/Time January 11, 2025 2:14 am [facility] Medical Records Department [address] [address] Pharmacokinetic/Renal -Consult 01/11/25 0211 MR#: [id number] Acct: [id number] Name: FRANKLIN WIGGINS Rep #:[id number] : 1965 59 From: Boone Garcia PCP: Josy Elias NP-C Status:ADM I N Y Location: ICU CVICU20 [...] signed by Boone bower> Date _ Boone Clarkcorinaniko Signature (if applicable): Date CC: ~ Signed [facility] Work Phone: [phone]) [phone] Progress note Author Cielo Tovar [facility] Note Date/Time January 10, 2025 6:23p [facility] Medical Records Department [address] [facility] [place] [address] Progress Note 01/10/256 MR#: [id number] Acct: [id number] Name: FRANKLIN WIGGINS Rep #:[id number] : 1965 59 From: Cielo Tovar MD PCP: YG Pena Status:ADM I N Location: ICU CVICU 1- Subjective Subjective Patient seen and examined. [...] % (Auto) Cancelled, Lymph % (Auto) Cancelled, Clayton % (Auto) Cancelled, Eos % (Auto) Cancelled, [...] Cells Cancelled, Ovalocytes Cancelled, Stomatocytes Cancelled, [place] Bodies Cancelled, [place] Cells Cancelled, Bite Cells Cancelled, Crenated Cell [...] 76.1 H, Lymph % (Auto) 8.8 L, Clayton % (Auto) 8.2, Eos % (Auto) 5.9 [...] prophylaxis: Heparin Charges/Coding Visit Charges Inpatient E&M: 37172 Subs Hosp L3 01/10/25 1823 <Electronically signed by Cielo Tovar MD> Cielo Tovar MD Cosigner Signature (if applicable): CC: ~ Signed [facility] Work Phone: [phone] 250-654706-09-2025 Progress note Author Bola Meraz [facility] Note Date/Time January 10, 2025 8:52a m [facility] Medical Records Department [address] [place] [address] Progress Note - Crime Scene Evidence Technician 01/10/25 0700 MR#: [id number] Acct: [id number] Name: FRANKLIN WIGGINS Rep #:[id number] : [...] scheduled midodrine. This note was generated with [employer] dictation software. It may contain incorrectwords, spelling, [...] 80.6 H, Lymph % (Auto) 7.2 L, Clayton % (Auto) 6.7, Eos % (Auto) 4.2, [...] % (Auto) Cancelled, Lymph % (Auto) Cancelled, Clayton % (Auto) Cancelled, Eos % (Auto) Cancelled, [...] Cells Cancelled, Ovalocytes Cancelled, Stomatocytes Cancelled, [place] Bodies Cancelled, Paloma Cells Cancelled, Bite Cells [...] 76.1 H, Lymph % (Auto) 8.8 L, Clayton % (Auto) 8.2, Eos % (Auto) 5.9 [...] liver masses identified. Reading Location: [facility] Physical Exam Const [...] flat affect Charges/Coding Visit Charges Inpatient E&M: 31301 Subs Hosp L3 01/10/25 0852 <Electronically signed by Bola Meraz DO> Cosigner Signature (if applicable): CC: ~ Signed [facility] Work Phone: [phone]) [phone] Consult note Author Lupillo Robbins [facility] Note Date/Time January 09, 2025 8:03p [facility] Medical Records Department [address] [place] [address] Consultation - Crime Scene Evidence Technician 01/09/25 1836 MR#: [id number] Acct: [id number] Name: FRANKLIN WIGGINS Rep #:[id number] : [...] 12-point ROS negative except as per HPI [facility] Medical History (Updated 01/09/25 @ 17:18 by [...] Ascorbic Acid 500 Mg Tablet PO BID [facility] Atorvastatin Calcium 40 mg 01/10/25 10:00 Atorvastatin Calcium 40 Mg Tablet PO DAILY [facility] Calcium/Vitamin D 1 tablet 01/10/25 10:00 Calcium Carb/Vitamin D 1 Tablet Tablet PO DAILY K[facility]STIN Cyclobenzaprine HCl 10 mg 01/09/25 22:00 Cyclobenzaprine Hcl 10 Mg Tablet PO QHS [facility] Ferrous Sulfate 325 mg 01/10/25 12:00 Ferrous [...] mls @ 15 mls/hr 01/09/25 15:34 IV .[id number] PRN Saline Flush Sodium Chloride 250 mls @ 15 mls/hr 01/09/25 15:34 IV .[id number] PRN Additional IVPB Infusion Norepinephrine Bitartrate 8 mg 250 mls @ 9.375 mls/hr 01/09/25 15:46 01/09/2515:56 / Sodium Chloride CONT INF Not Given .[id number] [facility] Protocol 5 MCG/MIN Vancomycin IV-PHARMACY TO DOSE 500 mls @ 250 mls/hr 01/09/25 15:46 1 each/ Sodium Chloride IV PRN PRN Rx to Dose Protocol Meropenem 1 gm/ Sodium 120 mls @ 33 mls/hr 01/09/25 22:00 Chloride IV Q12 KRYSTIN Vancomycin HCl 1,000 mg in 200 mls @ 200 mls/hr 01/10/25 02:00 Vancomycin IV Q12H [facility] Insulin Glargine 20 unit 01/09/25 22:00 Insulin Glargine-Yfgn 100 Unit/Ml Pen SC QHS [facility] Insulin Glargine 20 unit 01/10/25 10:00 Insulin Glargine-Yfgn 100 Unit/Ml Pen SC DAILY [facility] Insulin Human Lispro 0 unit 01/09/25 16:00 01/09/25 16:27 Insulin Lispro 100 Unit/Ml Insuln.Pen SC Not Given ACHS [facility] Protocol Lactulose 10 gm 01/09/25 15:46 Lactulose 20 Gm/30 Ml Udc PO TID PRN constipation Magnesium Chloride 128 mg 01/10/25 10:00 Magnesium Chloride 64 Mg Delay Rel.Tablet PO DAILY [facility] Midodrine 10 mg 01/09/25 17:00 01/09/25 17:10 Midodrine Hcl 5 Mg Tablet PO 10 mg TIDCM [facility] Administration Ondansetron HCl 4 mg 01/09/25 15:46 Ondansetron 4 Mg/2 Ml Vial IV Q8H PRN PRN NAUSEA/VOMITING Pantoprazole Sodium 20 mg 01/10/25 10:00 Pantoprazole Sodium 20 Mg Tablet PO DAILY [facility] Potassium Phos/Sodium Phos 1 packet 01/09/25 22:00 Na Biphos/Potassium Phosphate Packet PO BID [facility] Rifaximin 550 mg 01/09/25 22:00 Rifaximin 550 Mg Tablet PO BID [facility] Sodium Bicarbonate 650 mg 01/09/25 22:00 Sodium Bicarbonate 650 Mg Tablet PO BID [facility] Sodium Chloride 10 - 40 ml 01/09/25 15:34 0.9% Saline Lock 10 Ml Syringe IV UD PRN SALINE FLUSH Thiamine HCl 100 mg 01/10/25 10:00 Thiamine Hydrochloride 100 Mg Tablet PO DAILY [facility] Vancomycin Protocol 1 lab 01/11/25 00:30 Vancomycin Trough/Random Due MC 01/11/25 02:30 DAILY [facility] Zinc Sulfate 50 mg 01/10/25 10:00 Zinc Sulfate 50 Mg Zinc (220 Mg) Oral Capsule PO DAILY [facility] Lab / Micro Data 01/09/25 10:40 [...] 80.6 H, Lymph % (Auto) 7.2 L, Clayton % (Auto) 6.7, Eos % (Auto) 4.2, [...] liver masses identified. Reading Location: [facility] Assessment and Plan . Assessment and [...] Signature (if applicable): CC: YG Elias~ Signed [facility] Work Phone: [phone]) [phone] Consult note Author Peter Carvajal [facility] Note Date/Time January 09, 2025 5:42p m [facility] Medical Records Department [address] [address] Pharmacokinetic/Renal -Consult 01/09/25 1602 MR#: [id number] Acct: [id number] Name: FRANKLIN WIGGINS Rep #:[id number] : [...] 0130 01/09/25 1603 <Electronically signed by Peter Hartzle r> Date _ Peter Carvajal 01/09/25 1742 <Electronically signed by Yaritza Lucero O> Cosigner Signature (if applicable): Date Yaritza Leo DO CC: ~ Signed [facility] Work Phone: [phone] History and physical note Author Yaritza Leo [facility] Note Date/Time January 09, 2025 5:41p m [facility] Medical Records Department [address] [facility] [place] [place] [address] H&P Exam - Hospitalist 01/09/25 1408 MR#: [id number] Acct: [id number] Name: FRANKLIN WIGGINS Rep #:[id number] : 1965 59 From: Yaritza Leo DO PCP: YG Pena Status:ADM I N Location: ICU CVICU20 1- HPI - General General Date of Admission: 01/09/25 Date of Service: 01/09/25 Chief Complaint: Suprapubic abdominal pain HPI Narrative FRANKLIN WIGGINS, is a 59 M who presented to the emergency department [facility] on 01/09/2025 due to back pain [...] medical history and currently resides at an [facility]. He denies any fever or chills. [...] a repeat of 89/59 and pulse ox tws382% on room air. CBC showed a leukocytosis [...] he was treated with 30 cc/kg bolus. [facility] Medical History (Updated 01/09/25 @ 17:18 by [...] mg tablet 40 mg PO DAILY diuretic 04/2 11/28/24 History magnesium oxide 400 mg (241.3 [...] 80.6 H, Lymph % (Auto) 7.2 L, Clayton % (Auto) 6.7, Eos % (Auto) 4.2, [...] masses identified. Reading [facility] Assessment & Plan Assessment/Plan (1) Sepsis: (2) [...] currently 102/60) Charges/Coding Visit Charges Inpatient E&M: 33410 Init Hosp L3 01/09/25 1741 <Electronically signed by Yaritza Leo DO> Cosigner Signature (if applicable): CC: YG Elias; Dr. Yaritza Leo DO~ Signed [facility] Work Phone: 1([phone]) 667-392506-08-2025 Discharge summary Author Breann Mendez [facility] Note Date/Time January 09, 2025 4:26p m [facility] Medical Records Department [address] [place] [address] Emergency Department Summary 01/09/25 MR#: [id number] Acct: [id number] Name: FRANKLIN WIGGINS Rep #:[id number] : 1965 59 From: Breann Mendez DO PCP: Josy Tannhof, MERCHANDISING ASSISTANT-C Status:ADM I N Location: ICU CVICU20 1-1 [...] denies urinary symptoms. Patient is from a [facility] and normally ambulates with a walker. Patient has history of cirrhosis and history of diabetes as well as high cholesterol. Patient has had prior paracentesis. Currently rates his pain about a 5 out of 10. He does not want thing for pain currently. [facility] Medical History Weakness Diarrhea Sepsis [...] 80.6 H Lymph % (Auto) 7.2 L Clayton % (Auto) 6.7 Eos % (Auto) 4.2 [...] Clarity Turbid Urine pH 6.0 Ur Specific Nazlini 1.015 Urine Protein 500 H Urine Glucose [...] masses identified. Reading Location[facility] Critical Care Time Critical care time (excluding procedures): 30-74 minutes, Including time spent:,Discussing w/Patient &/or Family/Waist Presser, Discussing w/Consultants, ArrangingAdmission or Transfer, Performing Direct [...] NP-C [Primary Care Provider] - Print Language: Cape Verdean Disposition Disposition: Acute Care [facility] What to do if you have Problems For any increased pain, shortness of breath, bleeding, nausea or vomiting, chestpain, or any unexpected problems, contact your Primary Care Provider. Call [facility] ([phone]) or report to the closest Emergency Room. Call 911 if necessary. 01/09/25 1626 <Electronically signed by Breann Mendez DO> Cosigner Signature (if applicable): CC: YG Elias ~ Signed [facility] Work Phone: 1([phone]) 119-927306-08-2025 Radiology Diagnostic study [facility]06-04-2025 Consult note Author Kourtney Reece [facility] Note Date/Time January 05, 2025 5:01p m [facility] Medical Records Department [address] [place] [address] Counseling Note - Pharmacy 01/05/25 1447 MR#: [id number] Acct: [id number] Name: FRANKLIN WIGGINS Rep #:[id number] : 1965 59 From: Kourtney Reece PCP: YG Pena Status:ADM I N Y Location: [address] 1 [place] Med Reconciliation Pharmacy Service has performed discharge [...] solution (Constulose) 15 ml PO TID PRN tgjrcujooeys84/27/25 L.acidophil,salivari-Bifido bifidum-Strep thermoph 175 mg capsule 1 [...] Signature (if applicable): Date CC: ~ Signed [facility] Work Phone: [phone]) 216-973206-04-2025 Discharge summary Author Hill Acuña [facility] Note Date/Time January 05, 2025 2:07p [facility] Medical Records Department [address] [place] [address] Discharge Summary 01/05/25 1404 MR#: [id number] Acct: [id number] Name: FRANKLIN WIGGINS Rep #:[id number] : 1965 59 From: Hill Acuña MD PCP: YG Pena Status:ADM I N Location: [place] [id number]- Providers Date of Admission: 01/02/25 Date of [...] requested for PT OT eval and social services designee to assist with discharge planning ? 01/03/2025; [...] solution (Constulose) 15 ml PO TID PRN vyenpfaesfou10/27/25 L.acidophil,salivari-Bifido bifidum-Strep thermoph 175 mg capsule 1 [...] (Auto) 69.1, Lymph % (Auto) 13.4 L, Clayton % (Auto) 11.6 H, Eos % (Auto) [...] in before D/C Order can be placed): [facility] Facility Charges/Coding Visit Charges Inpatient E&M: 11419 Disch Hosp >30min 01/05/25 1407 <Electronically signed by Hill Acuña MD> Cosigner Signature (if applicable): CC: YG Elias; Dr. Hill Acuña MD~ Signed [facility] Work Phone: 1(847) 633-356506-04-2025 Discharge summary Author Hill Acuña [facility] Note Date/Time January 05, 2025 2:04p m [facility] Medical Records Department [address] [place] [address] Transfer to [facility] MR#: [id number] Acct: [id number] Name: FRANKLIN WIGGINS Rep #:[id number] : 1965 59 From: Hill Acuña MD PCP: YG Pena Status:ADM I N Certification of patient admission REQUIRED AT TIME OF ADMISSION. I CERTIFY THAT POST-HOSPITAL ECF SERVICES ARE REQUIRED TO BE GIVEN ON AN IN-PATIENT BASIS BECAUSE OF THE ABOVE NAMED PATIENT'S NEED FOR [facility] CARE ON A CONTINUING BASIS FOR THE [...] requested for PT OT eval and social services designee to assist with discharge planning ? 01/03/2025; [...] was on metformin held did continue with [employer] ACHS with sliding scale coverage ? 01/03/2025; [...] in before D/C Order can be placed): [facility] Facility 01/05/25 1404 <Electronically signed by Hill Acuña MD> Cosigner Signature (if applicable): CC: MERCHANDISING ASSISTANT-C Josy Elias; Dr. Buster Fuchs MD ~ [facility] Work Phone: [phone]) 954-182006-04-2025 Progress note Author Hill Acuña [facility] Note Date/Time January 05, 2025 11:01 am [facility] Medical Records Department [address] [place] [address] Progress Note - Hospitalist 01/05/25 0737 MR#: [id number] Acct: [id number] Name: FRANKLIN WIGGINS Rep #:[id number] : 1965 59 From: Hill Acuña MD PCP: YG Pena Status:ADM I N Location: [place] [address] Reason for Visit Reason for Visit: Diagnoses [...] (Auto) 69.1, Lymph % (Auto) 13.4 L, Clayton % (Auto) 11.6 H, Eos % (Auto) [...] requested for PT OT eval and social services designee to assist with discharge planning ? 01/03/2025; [...] SCDs for Charges/Coding Visit Charges Inpatient E&M: 01451 Subs Hosp L2 01/05/25 1101 <Electronically signed by Hill Acuña MD> Cosigner Signature (if applicable): CC: ~ Signed [facility] Work Phone: 1(393) 459-166306-03-2025 Progress note Author Hill Acuña [facility] Note Date/Time January 04, 2025 10:18 am [facility] Medical Records Department [address] [facility] [place] [address] Progress Note - Hospitalist 01/04/25 1014 MR#: [id number] Acct: [id number] Name: FRANKLIN WIGGINS Rep #:[id number] : 1965 59 From: Hill Acuña MD PCP: YG Pena Status:ADM I N Location: [place] [address] Reason for Visit Reason for Visit: Diagnoses [...] requested for PT OT eval and social services designee to assist with discharge planning ? 01/03/2025; [...] SCDs for Charges/Coding Visit Charges Inpatient E&M: 35738 Subs Hosp L2 01/04/25 1018 <Electronically signed by Hill Acuña MD> Cosigner Signature (if applicable): CC: ~ Signed [facility] Work Phone: 1([phone]) 878-858306-02-2025 Progress note Author Hill Acuña [facility] Note Date/Time January 03, 2025 9:52a m [facility] Medical Records Department [address] [place] [address] Progress Note - Hospitalist 01/03/25 0839 MR#: [id number] Acct: [id number] Name: GEREMIASFRANKLIN Rep #:[id number] : 1965 59 From: Hill Acuña MD PCP: YG Pena Status:ADM I N Location: [place] [address] Reason for Visit Reason for Visit: Diagnoses [...] (Auto) 67.5, Lymph % (Auto) 13.9 L, Clayton % (Auto) 11.5 H, Eos % (Auto) [...] requested for PT OT eval and social services designee to assist with discharge planning ? 01/03/2025; [...] SCDs for Charges/Coding Visit Charges Inpatient E&M: 82507 Subs Hosp L2 01/03/25 0952 <Electronically signed by Hill Acuña MD> Cosigner Signature (if applicable): CC: ~ Signed [facility] Work Phone: 1(171) 847-328106-01-2025 Progress note Author Hill Acuña [facility] Note Date/Time January 02, 2025 9:58a m [facility] Medical Records Department [address] [place] [address] Progress Note - Hospitalist 01/02/25 0736 MR#: [id number] Acct: [id number] Name: FRANKLIN WIGGINS Rep #:[id number] : 1965 59 From: Hill Acuña MD PCP: YG Pena Status:ADM I N Location: [place] [address] Reason for Visit Reason for Visit: Diagnoses [...] (Auto) 68.0, Lymph % (Auto) 12.2 L, Clayton % (Auto) 11.9 H, Eos % (Auto) [...] insufficiency fracture again noted, unchanged. Reading Location: [facility] Brain CT 01/02/25 03:55 IMPRESSION: No intracranial hemorrhage, mass effect or calvarial fracture. Moderate volume loss, atrophy again noted. Mild left maxillary sinus disease appears mildly decreased from the prior study. Reading Location: [facility] Cervical Spine CT 01/02/25 03:55 IMPRESSION: No fracture or malalignment. Multilevel spondylosis/discogenic change greatest at C5-6 Reading Location: [facility] Physical Exam Narrative GENERAL: cooperative HEENT: [...] requested for PT OT eval and social services designee to assist with discharge planning 2. Severe [...] documentation, 38Minutes Charges/Coding Visit Charges Inpatient E&M: 57341 PROLNG IP/OBS E/M EA 15 MIN Multi Select Codes Visit Charges Visit Charges: 62058 PROLNG IP/OBS E/M EA 15 MIN 01/02/25 1977 <Electronically signed by Hill Acuña MD> Cosigner Signature (if applicable): CC: ~ Signed [facility] Work Phone: 1(950) 220-880906-01-2025 History and physical note Author Buster Fuchs [facility] Note Date/Time January 02, 2025 6:44a m [facility] Medical Records Department [address] [place] [address] H&P Exam - Hospitalist 01/02/25 0556 MR#: [id number] Acct: [id number] Name: FRANKLIN WIGGINS Rep #:[id number] : 1965 59 From: Buster duarte MD PCP: Josy Elias, MERCHANDISING ASSISTANT-C Status:ADM I N Location: [place] [address] HPI - General General Date of Admission: 01/02/25 HPI Narrative FRANKLIN WIGGINS, is a 59 M who presents to the hospital with weakness and a fall. He did not hit his head or lose consciousness. He has had an extensive recent medical history with cirrhosis and UTI with staghorn calculus, he was in the ICUin October. 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 Was not considered to be a liver transplant candidate and was placed on anticoagulation. He has had a couple of readmissions for weakness and debility. [place] to possibly have aUTI given a staghorn [...] Heis receiving potassium infusion in the ER. [facility] Medical History Weakness Diarrhea Sepsis Acidosis, lactic [...] (Auto) 68.0, Lymph % (Auto) 12.2 L, Clayton % (Auto) 11.9 H, Eos % (Auto) [...] insufficiency fracture again noted, unchanged. Reading Location: [facility] Brain CT 01/02/25 03:55 IMPRESSION: No intracranial hemorrhage, mass effect or calvarial fracture. Moderate volume loss, atrophy again noted. Mild left maxillary sinus disease appears mildly decreased from the prior study. Reading Location: [facility] Cervical Spine CT 01/02/25 03:55 IMPRESSION: No fracture or malalignment. Multilevel spondylosis/discogenic change greatest at C5-6 Reading Location: [facility] Assessment & Plan Assessment/Plan (1) Fall: [...] once verified Charges/Coding Visit Charges Inpatient E&M: 97125 Init Hosp L2 01/02/25 0644 <Electronically signed by Buster Fuchs MD> Cosigner Signature (if applicable): CC: YG Elias; Dr. Buster Fuchs MD~ Signed [facility] Work Phone: 1(597) 428-692106-01-2025 Evaluation note* Diagnosis Onset Date Resolution Status Admit Date Acute kidney injury resolved January 02, 2025 6:06am Fall resolved January 02, 2025 6:06am Abnormal urinalysis acute January 09, 2025 2:16pm Acute UTI acute January 09, 2025 2:16pm ISABEL (acute kidney injury) acute January 09, 2025 2:16pm Compression fracture of thoracic spine, non-traumatic acute 2024 2:16pm Leukocytosis acute January 09 2:16pm [...] resolved January 7:00am Hepatic encephalopathy inactive Marcella 2024 7:00am Umbilical hernia inactive January 7:00am [...] 10, 2025 1:52pm Hepatic encephalopathy acute Se ptember 2024 11:18pm [facility] Work Phone: 1(378) 568-397706-01-2025 Evaluation note* Diagnosis Onset Date Resolution Status Admit Date Acute kidney injury resolved January 02, 2025 6:06am Fall resolved January 02, 2025 6:06am Abnormal urinalysis acute January 09, 2025 2:16pm Acute UTI acute January 09, 2025 2:16pm ISABEL (acute kidney injury) acute January 09, 2025 2:16pm Compression fracture of thoracic spine, non-traumatic acute 2024 2:16pm Leukocytosis acute January 09 2:16pm [...] 6:26pm Cirrhosis of liver with ascites inactive Alisha 16th, 2025 6:26pm Decompensated cirrhosis inactive J pam [...] 10, 2025 1:52pm Hepatic encephalopathy acute Se ptember 2024 9:24pm [facility] Work Phone: 1([phone]) 950-371406-01-2025 Discharge summary Author Roddy Reeves [facility] Note Date/Time January 02, 2025 6:00a m [facility] Medical Records Department [address] [place] [address] Emergency Department Summary 01/02/25 MR#: [id number] Acct: [id number] Name: FRANKLIN WIGGINS Rep #:[id number] : [...] was here recently and was sent home. [facility] Medical History Weakness Diarrhea Sepsis [...] (Auto) 68.0 Lymph % (Auto) 12.2 L Clayton % (Auto) 11.9 H Eos % (Auto) [...] Clarity Turbid Urine pH 6.0 Ur Specific Nazlini 1.015 Urine Protein 100 H Urine Glucose [...] insufficiency fracture again noted, unchanged. Reading Location: [facility] Brain CT 01/02/25 03:55 IMPRESSION: No intracranial hemorrhage, mass effect or calvarial fracture. Moderate volume loss, atrophy again noted. Mild left maxillary sinus disease appears mildly decreased from the prior study. Reading Location: [facility] Cervical Spine CT 01/02/25 03:55 IMPRESSION: No fracture or malalignment. Multilevel spondylosis/discogenic change greatest at C5-6 Reading Location: [facility] Discharge Plan Triage Chief Complaint: Weakness [...] NP-C [Primary Care Provider] - Print Language: Cape Verdean Disposition Disposition: Acute Care Hospital [facility] What to do if you have Problems For any increased pain, shortness of breath, bleeding, nausea or vomiting, chestpain, or any unexpected problems, contact your Primary Care Provider. Call [facility] ([phone]) or report to the closest Emergency Room. Call 911 if necessary. 01/02/25 0600 <Electronically signed by Roddy Reeves DO> Cosigner Signature (if applicable): CC: YG Elias ~ Signed [facility] Work Phone: 1(432) 552-370506-01-2025 Radiology Diagnostic study [facility]06-01-2025 Radiology Diagnostic study [facility]06-01-2025 Radiology Diagnostic study [facility] 12-30-2024 Radiology Diagnostic study [facility]05-25-2025 Radiology Diagnostic study [facility]05-14-2025 Radiology Diagnostic study [facility]04-20-2025 Radiology Diagnostic study [facility]04-17-2025 Telephone encounter Note* Telephone Encounter - [...] will be scheduled to follow up with [facility] Book Critic. JEANNINE asked that Dr. Mosley inform this pt that he can return to our transplant center again and be re-evaluated once he has addressed his prohibitive psychosocial concerns (lack of caregivers, unstable housing, unstable finances, unreliable transportation). Dr. Mosley agreed to do so. [facility] Work Phone: 1([phone]) 801-262304-17-2025 Miscellaneous Notes* Telephone Encounter - Marah Arauz [...] be scheduled to follow up with [facility] Book C[facility]. JEANNINE asked that Dr. Mosley inform this pt that he can return to our transplant center again and be re-evaluated once he has addressed his prohibitive psychosocial concerns (lack of caregivers, unstable housing, unstable finances, unreliable transportation). Dr. Mosley agreed to do so. documented in this encounterBrown [facility]04-17-2025 Telephone encounter Note * Telephone Encounter [...] . Jeremi Abreu RN, BSN Liver Contact Center Director [facility] Work Phone: [phone] Miscellaneous Notes* Telephone Encounter - Jeremi Abreu [...] . Jeremi Abreu RN, BSN Liver Contact Center Director documented in this encounterBrown [facility] Hospital04-17-2025 [facility]-2025 [facility]04-16-2025 [facility]04-16-2025 [facility]04-16-2025 Note [facility]-2025 [facility]04-15-2025 [facility]04-15-2025 [facility] 11-15-2024 [facility]Tr[facility]04-14-2025 [facility]04-14-2025 NoteTr[facility]04-14-2025 History of Present illness Narrative* [...] 15, 2024 2:35 PM documented in this encounterBrown [facility] Hospital04-14-2025 NoteTr[facility]04-14-2025 History of Present illness Narrative* Virgil Farley DDS - 11/15/2024 1:48 PM EDTSummary: Liver Transplant Dental Bedside Clearance See inpatient note for this encounter on 11/15/2024. Virgil Farley DDS documented in this encounterBrown Memorial Hospital04-14-2025 NoteTr[facility]04-13-2025 NoteTr[facility]04-12-2025 NoteTr[facility]04-11-2025 History of Present illness Narrative* [...] mg capsule(s) rifAXIMin 550 mg tab(s) (XIFAXAN) dnaazgr-lgrprskfa-lrepglx D3 500 mg-5 mcg (200 unit) 1 [...] Guzman, PharmJazmine Transplant Pharmacy Clinical Specialist Pager: [phone] documented in this encounterBrown Memorial Hospital04-11-2025 NoteTr[facility]04-11-2025 NoteTr[facility]04-11-2025 History of Present illness Narrative* Jeremi Abreu RN - 11/12/2024 2:52 PM EDT The following information has been provided/discussed with the patient/family during Shared MedicalAppointment education class: Informed Consent for Organ Transplant Program Participation version February 20, 2023. SRTR information provided and questions answered. Informed patient to call special education coordinator with any questions. OS information regarding multiple listings for organ transplantation Evaluation process including presentation to selection committee and listing criteria Surgical procedure, including post-operative management, hospitalization, immunosuppressive medications and their side effects (including the risk for hypertension, diabetes, kidney problems and cancers) and shelter follow up after transplant. Possibility of recurrent [...] was also addressed Patient was provided with [facility] information sheet regarding transplantation of HepatitisC [...] In Department: TRANSPLANT CENTER documented in this encounterBrown [facility] Hospital04-11-2025 NoteTr[facility]04-11-2025 History of Present illness Narrative* [...] 12, 2024 1:16 PM documented in this encounterBrown Memorial Hospital04-11-2025 Miscellaneous Notes* Telephone Encounter - Jeremi Abreu RN - 11/12/2024 12:08 PM EDT INFORMED CONSENT Franklin Wiggins Medical Record: [id number] Informed consent for Organ Transplant Program Participation [...] answered. Jeremi Abreu RN, BSN Liver Contact Center Director documented in this encounterBrown Memorial Hospital04-11-2025 Telephone encounter Note * Telephone Encounter - Jeremi Abreu RN - 11/12/2024 12:08 PM EDT INFORMED CONSENT Franklin Wiggins Medical Record: [id number] Informed consent for Organ Transplant Program Participation [...] answered. Jeremi Abreu RN, BSN Liver Contact Center Director [facility] Work Phone: [phone] 647-571504-11-2025 [facility]04-11-2025 NoteHNO ID: [id number] Author: KIRTI VELÁSQUEZ RN Service: Nursing Author Type: Registered Nurse Type: Nursing Progress Note Filed: 11/12/2024 00:58 Note Text: Other: PTTAC-no clot detected at 320-heparin gtt stopped-need futher orders-consumer insight analyst notifiedTrumbull Memorial Hospital04-10-2025 [facility] 11-11-2024 NoteTr[facility]ull [facility]04-10-2025 NoteTr[facility]04-09-2025 Discharge summary Author Kathie Powers [facility] Note Date/Time November 10, 2024 8:42 pm [facility] Medical Records Department [address] [place] [address] Discharge Summary 11/10/241936 MR#: [id number] Acct: [id number] Name: FRANKLIN WIGGINS Rep #:[id number] : 1965 59 From: Kathie Powers MD PCP: Care Physician,No Primary Status :ADM [facility] Date of Admission: 10/29/24 Date of Discharge: 11/10/24 Primary Care Physician: No Primary Care Phys Consultations 10/29/24 01:15 Consult: Urology Routine Consulting Provider: Foster Rascon Reason for Consult: Sepsis with UTI and Staghorn Calculus. EMERGENT Consult: No MD Notified: Yes Date Notified: 10/29/24 Time Notified: 08:07 Method of Notification: Verbal 10/29/24 01:47 Consult: Crime Scene Evidence Technician / Pulmonary Medicine Routine Consulting Provider: Intensivists/Pulmonary Med Reason for Consult: Sepsis, UTI, Diarrhea, Abdominal Pain and Back Pain. EMERGENT Consult: No MD Notified: Yes Date Notified: 10/29/24 Time Notified: 04:58 Method of Notification: Text 10/30/24 03:54 Consult: Gastroenterology Routine Consulting Provider: [facility] Reason for Consult: BOYER, elevated ammonia EMERGENT Consult: No MD Notified: Yes Date Notified: 10/30/24 Time Notified: 07:31 Method of Notification: Text 11/09/24 21:26 Consult: Gastroenterology Routine Consulting Provider: [facility] Reason for Consult: cirrhosis,ascites,splenic thrombosis, low plts, possible dec in heidy motili EMERGENT Consult: No MD Notified: Yes Date Notified: 11/10/24 Time Notified: 05:35 Method of Notification: Text Consult: Oncology/Hematology Routine Consulting Provider: *[facility]) Reason for Consult: splenic [...] diabetes, staghorn colliculi, cirrhosis who presented to [facility] ED 10/29/2024 with sepsis and was [...] heme-onc was in agreement. Reach out to [facility] and ultimately patient was accepted by the accounting practice manager Dr. Neal. Patient with bed assignment 11/10, patient to be transferred to [facility] Physical Exam Narrative General: Sleeping but [...] 83.0 H, Lymph % (Auto) 6.6 L, Clayton % (Auto) 6.9, Eos % (Auto) 1.9, [...] Clarity Turbid, Urine pH 6.5, Ur Specific Nazlini 1.015, Urine Protein 500 H, Urine Glucose [...] Garza; Zachariah Glover; Scott Weston; Yue Delgadillo MERCHANDISING ASSISTANT Discharge Orders/Prescriptions Prescriptions: No Action lidocaine 5 [...] or pain) [facility] 1 Week Care Physician,No Primary [Primary Care Provider] - Disposition Disposition (needs filled in before D/C Order can be placed): Acute Care Hospital Charges/Coding Visit Charges Inpatient E&M: 38714 Disch Hosp >30min 11/10/242041 <Electronically signed by Kathie Powers MD> Cosigner Signature (if applicable): CC: Dr. Kathie Powers MD; No Primary Care Physician~ Signed [facility] Work Phone: 1([phone]) 480-165404-09-2025 Discharge summary Author Kathie Powers [facility] Note Date/Time November 10, 2024 7:37 pm [facility] Medical Records Department [address] [place] [address] Instructions for Home/Discharge Instructions 11/10/241935 MR#: [id number] Acct: [id number] Name: FRANKLIN WIGGINS Rep #:[id number] : [...] Garza; Zachariah Glover; Scott Weston; Yue Delgadillo MERCHANDISING ASSISTANT Discharge Orders/Prescriptions Prescriptions: No Action lidocaine 5 [...] pain) Referrals / Follow Up: Amrita Fields [facility] [Provider Group] - In 1 Week Care Physician,No Primary [Primary Care Provider] - Disposition Disposition (needs filled in before D/C Order can be placed): [facility] 11/10/241936<Electronically signed by Kathie Powers MD>Kathie [...] DO; No Primary Care Physician ~ Signed [facility] Work Phone: 1(597) 350-182304-09-2025 Consult note Author Foster Rascon [facility] Note Date/Time November 10, 2024 8:59 am [facility] Medical Records Department [address] [place] [address] Consultation 11/10/24 0857 MR#: [id number] Acct: [id number] Name: FRANKLIN WIGGINS Rep #:[id number] : 1965 59 From: Foster Rascon MD PCP: Care Physician,No Primary Status :ADM IN Location: [place] [address]- 1 Consult Date of Consult: 11/10/24 59-year-old [...] applicable): CC: No Primary Care Physician~ Signed [facility] Work Phone: 1(641) 536-653404-08-2025 Progress note Author Kathie [facility] Note Date/Time November 09, 2024 9:26 pm [facility] Medical Records Department [address] [place] [address] Progress Note - Hospitalist 11/09/242120 MR#: [id number] Acct: [id number] Name: FRANKLIN WIGGINS Rep #:[id number] : 1965 59 From: Kathie Powers MD PCP: Care Physician,No Primary Status :ADM IN Location: [place] [address] scan w/ ascites and [...] Cosigner Signature (if applicable): CC: ~ Signed [facility] Work Phone: 1(670) 485-431504-08-2025 Progress note Author Kathie [facility] Note Date/Time November 09, 2024 6:54 pm [facility] Medical Records Department [address] [place] [address] Progress Note - Hospitalist 11/09/24 1850 MR#: [id number] Acct: [id number] Name: FRANKLIN WIGGINS Rep #:[id number] : 1965 59 From: Kathie Powers MD PCP: Care Physician,No Primary Status :ADM IN Location: [place] [address] Reason for Visit Reason for Visit: Diagnoses [...] 79.1 H, Lymph % (Auto) 8.2 L, Clayton % (Auto) 8.1, Eos % (Auto) 3.0, [...] with interval NG tube removal. Reading Location: [id number] Rhythm Strip Rhythm Strip: Sinus Rhythm Rate: [...] 42 Minutes Charges/Coding Visit Charges Inpatient E&M: 66960 Subs Hosp L2 11/09/24 8181 <Electronically signed by Kathie Powers MD> Cosigner Signature (if applicable): CC: ~ Signed [facility] Work Phone: 1(242) 850-428704-08-2025 Radiology Diagnostic study [facility]04-08-2025 Radiology Diagnostic study [facility]04-07-2025 Progress note Author Kathie Powers [facility] Note Date/Time November 08, 2024 6:26 pm [facility] Medical Records Department [address] [place] [address] Progress Note - Hospitalist 11/08/24 1441 MR#: [id number] Acct: [id number] Name: FRANKLIN WIGGINS Rep #:[id number] : 1965 59 From: Kathie Powers MD PCP: Care Physician,No Primary Status :ADM IN Location: [place] [address] Reason for Visit Reason for Visit: Diagnoses [...] 56 Minutes Charges/Coding Visit Charges Inpatient E&M: 51756 Subs Hosp L3 11/08/24 1500 <Electronically signed by Kathie Powers MD> Cosigner [...] Cosigner Signature (if applicable): cc: ~* Signed [facility] Work Phone: 1(351) 777-507504-06-2025 Progress note Author Hlil Acuña [facility] Note Date/Time November 07, 2024 10:3 8am [facility] Medical Records Department [address] [place] [address] Progress Note - Hospitalist 11/07/24 0913 MR#: [id number] Acct: [id number] Name: FRANKLIN WIGGINS Rep #:[id number] : 1965 59 From: Hill Acuña MD PCP: Care Physician,No Primary Status :ADM IN Location: [place] [address] Reason for Visit Reason for Visit: Diagnoses [...] 81.5 H, Lymph % (Auto) 6.9 L, Clayton % (Auto) 6.9, Eos % (Auto) 2.3, [...] Requested for PT OT eval and social services designee to assist with discharge planning ? 11/05/2024; [...] 36 Minutes Charges/Coding Visit Charges Inpatient E&M: 44967 Subs Hosp L2 11/07/24 1038 <Electronically signed by Hill Acuña MD> Cosigner Signature (if applicable): CC: ~ Signed [facility] Work Phone: 1(991) 715-418204-05-2025 Progress note Author Hill Acuña [facility] Note Date/Time November 06, 2024 10:5 7am [facility] Medical Records Department [address] [facility] [place] [address] Progress Note - Hospitalist 11/06/24 0756 MR#: [id number] Acct: [id number] Name: FRANKLIN WIGGINS Rep #:[id number] : 1965 59 From: Hill Acuña MD PCP: Care Physician,No Primary Status :ADM IN Location: [place] [address] Reason for Visit Reason for Visit: Diagnoses [...] Requested for PT OT eval and social services designee to assist with discharge planning ? 11/05/2024; [...] 36 Minutes Charges/Coding Visit Charges Inpatient E&M: 94022 Subs Hosp L2 11/06/24 1057 <Electronically signed by Hill Acuña MD> Cosigner Signature (if applicable): CC: ~ Signed [facility] Work Phone: 1(649) 923-410304-04-2025 Progress note Author Hill Acuña [facility] Note Date/Time November 05, 2024 9:26 am [facility] Medical Records Department [address] [facility] [place] [address] Progress Note - Hospitalist 11/05/24 0924 MR#: [id number] Acct: [id number] Name: FRANKLIN WIGGINS Rep #:[id number] : 1965 59 From: Hill Acuña MD PCP: Care Physician,No Primary Status :ADM IN Location: [place] [address] Reason for Visit Reason for Visit: Diagnoses [...] 81.0 H, Lymph % (Auto) 6.7 L, Clayton % (Auto) 7.1, Eos % (Auto) 2.3, [...] Requested for PT OT eval and social services designee to assist with discharge planning ? 11/05/2024; [...] 38 Minutes Charges/Coding Visit Charges Inpatient E&M: 48682 Subs Hosp L2 11/05/24 0926 <Electronically signed by Hill Acuña MD> Cosigner Signature (if applicable): CC: ~ Signed [facility] Work Phone: 1(132) 351-245804-03-2025 Progress note Author Hill Acuña [facility] Note Date/Time November 04, 2024 11:5 0am [facility] Medical Records Department [address] [facility] [place] [address] Progress Note - Hospitalist 11/04/24 1105 MR#: [id number] Acct: [id number] Name: FRANKLIN WIGGINS Rep #:[id number] : 1965 59 From: Hill Acuña MD PCP: Care Physician,No Primary Status :ADM IN Location: [place] [address] Reason for Visit Reason for Visit: Diagnoses [...] 83.6 H, Lymph % (Auto) 4.9 L, Clayton % (Auto) 5.9, Eos % (Auto) 1.1, [...] Requested for PT OT eval and social services designee to assist with discharge planning Time spent in the patient's overall evaluation,decision-making process, review of diagnostic data, adjustment of management, discussion with other providers, nursing nursing and ancillary staff involved in patient's care documentation, 38 Minutes Charges/Coding Visit Charges Inpatient E&M: 21332 Subs Hosp L2 11/04/24 1150 <Electronically signed by Hill Acuña MD> Eduardoigner Signature (if applicable): CC: ~ Signed [facility] Work Phone: 1([phone]) 268-442904-03-2025 Progress note Author Maria Guadalupe Shore [facility] Note Date/Time November 04, 2024 6:43 am [facility] Medical Records Department [address] [place] [address] Progress Note - Hospitalist 11/04/24 0642 MR#: [id number] Acct: [id number] Name: FRANKLIN WIGGINS Rep #:[id number] : 1965 59 From: Maria Guadalupe Shore MD PCP: Care Physician,No Primary Status :ADM IN Location: [place] [address] Hospitalist Note Patient with 15 beat asymptomatic VT. Electrolytes recently checked, mag normal range, K normal range. 11/04/24 0643 <Electronically signed by Maria Guadalupe Shore MD> Cosigner Signature (if applicable): CC: ~ Signed [facility] Work Phone: 1(195) 114-321504-03-2025 Progress note Author [facility] Note Date/Time November 03, 2024 10:3 8pm [facility] Medical Records Department [address] [place] [address] Progress Note - Hospitalist 11/03/24 2237 MR#: [id number] Acct: [id number] Name: FRANKLIN WIGGINS Rep #:[id number] : 1965 59 From: Maria Guadalupe Shore MD PCP: Care Physician,No Primary Status :ADM IN Location: [place] [address] Hospitalist Note Patient with mildly tachycardia through the late afternoon and evening. Will administer 500 cc bolus and reassess. From review of medications not normally onBB therapy. 11/03/242237 <Electronically signed by Maria Guadalupe Shore MD> Cosigner Signature (if applicable): CC: ~ Signed [facility] Work Phone: [phone] Progress note Author [facility] Note Date/Time November 03, 2024 10:2 7am [facility] Medical Records Department [address] [place] [address] Progress Note - Hospitalist 11/03/24 1025 MR#: [id number] Acct: [id number] Name: FRANKLIN WIGGINS Rep #:[id number] : 1965 59 From: Hill Acuña MD PCP: Care Physician,No Primary Status :ADM IN Location: [place] [address] Reason for Visit Reason for Visit: Diagnoses [...] Requested for PT OT eval and social services designee to assist with discharge planning Time spent in the patient's overall evaluation,decision-making process, review of diagnostic data, adjustment of management, discussion with other providers, nursing nursing and ancillary staff involved in patient's care documentation, 38 Minutes Charges/Coding Visit Charges Inpatient E&M: 82923 Subs Hosp L2 11/03/24 1027 <Electronically signed by Hill Acuña MD> Cosigner Signature (if applicable): CC: ~ Signed [facility] Work Phone: 1(525) 544-758004-01-2025 Progress note Author Hill Acuña [facility] Note Date/Time November 02, 2024 10:0 5am [facility] Medical Records Department [address] [place] [address] Progress Note - Hospitalist 11/02/24 0804 MR#: [id number] Acct: [id number] Name: FRANKLIN WIGGINS Rep #:[id number] : 1965 59 From: Hill Acuña MD PCP: Care Physician,No Primary Status :ADM IN Location: [place] [address] Reason for Visit Reason for Visit: Diagnoses [...] 50 Minutes Charges/Coding Visit Charges Inpatient E&M: 02592 Subs Hosp L3 11/02/24 1005 <Electronically signed by Hill Acuña MD> Cosigner Signature (if applicable): CC: ~ Signed [facility] Work Phone: 1(202) 381-778903-31-2025 Progress note Author Hill Acuña [facility] Note Date/Time November 01, 2024 11: 41am [facility] Medical Records Department [address] [place] [address] Progress Note - Hospitalist 11/01/24 1128 MR#: [id number] Acct: [id number] Name: FRANKLIN WIGGINS Rep #:[id number] : 1965 59 From: Hill Acuña MD PCP: Care Physician,No Primary Status :ADM IN Location: [place] [address] Reason for Visit Reason for Visit: Diagnoses [...] 50 Minutes Charges/Coding Visit Charges Inpatient E&M: 99602 Subs Hosp L3 11/01/24 1141 <Electronically signed by Hill Acuña MD> Cosigner Signature (if applicable): CC: ~ Signed [facility] Work Phone: 1(670) 211-523503-31-2025 Progress note Author Niranjan Friend [facility] Note Date/Time November 01, 2024 8:4 4am [facility] Medical Records Department [address] [place] [address] Progress Note 11/01/24 0836 MR#: [id number] Acct: [id number] Name: FRANKLIN WIGGINS Rep #:[id number] : 1965 59 From: Niranjan Friend PCP: Care Physician,No Primary Status :ADM IN Location: [place] [address] Progress Note Patient has a little bit [...] doses of vancomycin. Visit Charges Inpatient E&M: 26475 Subs Hosp L3 11/01/24 0844 <Electronically signed by Niranjan Li DO> Niranjan Li DO Cosigner Signature (if applicable): CC: ~ Signed [facility] Work Phone: 1(638) 249-954803-31-2025 Consult note Author Ale Renee [facility] Note Date/Time November 01, 2024 6:1 1am [facility] Medical Records Department [address] [place] [address] Pharmacokinetic/Renal -Consult 11/01/24 0604 MR#: [id number] Acct: [id number] Name: GEREMIASFRANKLIN CARMELA Rep #:[id number] : 1965 59 From: Ale Renee PCP: Care Physician,No Primary Status :ADM IN Y Location: [place] [address] Consult [facility] Pharmacy has been consulted [...] Date Hill Caro DO CC: ~ Signed [facility] Work Phone: 1([phone]) 251-702603-30-2025 Progress note Author Buster Fuchs [facility] Note Date/Time October 31, 2024 9:5 5am [facility] Medical Records Department [address] [place] [address] Progress Note - Hospitalist 10/31/24 0952 MR#: [id number] Acct: [id number] Name: FRANKLIN WIGGINS Rep #:[id number] : [...] (Auto) 80.3 H, Lymph %(Auto) 5.9 L, Clayton % (Auto) 7.9, Eos % (Auto) 1.5, [...] they did add IV Flagyl ? Appreciate sales department clerk assistance 2. Acute metabolic cephalopathy with nonalcoholic [...] DVT: SCDs Charges/Coding Visit Charges Inpatient E&M: 66733 Subs Hosp L2 10/31/24 9534 <Electronically signed by Buster Fuchs MD> Cosigner Signature (if applicable): CC: ~ Signed [facility] Work Phone: [phone] Consult note Author Foster Rascon [facility] Note Date/Time October 31, 2024 7:3 1am [facility] Medical Records Department [address] [place] [address] Consultation 10/31/24 0730 MR#: [id number] Acct: [id number] Name: FRANKLIN WIGGINS Rep #:[id number] : [...] applicable): CC: No Primary Care Physician~ Signed [facility] Work Phone: [phone] Consult note Author Niranjan Li [facility] Note Date/Time October 30, 2024 9:3 4pm [facility] Medical Records Department [address] [place] [address] Consultation - GI 10/30/24 204 MR#: [id number] Acct: [id number] Name: GEREMIASFRANKLINKarma CASEY Rep #:[id number] : 1965 59 From: [...] of yellow-colored fluid removed. He presented backto [facility] ER complaining of abdominal pain, back [...] He is also on Zosyn for urosepsis. [facility] Medical History Chronic hypotension Obesity (BMI 30-39.9) [...] 85.6 H, Lymph % (Auto) 4.3 L, Clayton % (Auto) 7.3, Eos % (Auto) 0.5, [...] NG tube in satisfactory position. Reading [facility] Assessment & Plan Assessment/Plan (1) Sepsis: QUALIFIERS: [...] this admission. Charges/Coding Visit Charges Inpatient E&M: 04754 Init Hosp L3 10/30/242 <Electronically signed by Niranjan Friend DO> Cosigner Signature (if applicable): CC: No Primary Care Physician~ Signed [facility] Work Phone: [phone]) [phone] Consult note Author Kourtney Reece [facility] Note Date/Time October 30, 2024 4:[address] [place] [address] Medical Records Department [address] [place] [address] Pharmacokinetic/Renal -Consult 10/30/24 1552 MR#: [id number] Acct: [id number] Name: FRANKLIN WIGGINS Rep #:[id number] : [...] Date Buster Fuchs MD CC: ~ Signed [facility] Work Phone: [phone]) [phone] Progress note Author [facility] Note Date/Time October 30, 2024 10: 45am [facility] Medical Records Department [address] [place] [address] Progress Note - Crime Scene Evidence Technician 10/30/24 1037 MR#: [id number] Acct: [id number] Name: FRANKLIN WIGGINS Rep #:[id number] : 1965 59 From: Jeff Cornelius MD PCP: Care Physician,No Primary Status :ADM IN Location: ICU ICU02-1 Objective Data Objective Data Vital Signs: Vital Signs Last response 3 Temperature 36.6 C 10/30/24 10:00 Temperature Source Temporal 03/29/25 10:00 Pulse Rate 82 10/30/24 10:00 Pulse [...] Lidocaine 5% Patch TOPICAL Not Given DAILY [facility] Protocol Midodrine 10 mg 10/29/24 02:00 [...] 85.5 H, Lymph % (Auto) 4.6 L, Clayton % (Auto) 7.4, Eos % (Auto) 1.2, [...] 85.6 H, Lymph % (Auto) 4.3 L, Clayton % (Auto) 7.3, Eos % (Auto) 0.5, [...] NG tube in satisfactory position. Reading Location: [facility] Assessment and Plan . Assessment and [...] Cosigner Signature (if applicable): CC: ~ Signed [facility] Work Phone: [phone]) [phone] Consult note Author Foster Rascon [facility] Note Date/Time October 30, 2024 9:5 8am [facility] Medical Records Department [address] [place] [address] Consultation - Urology 10/30/24 0956 MR#: [id number] Acct: [id number] Name: FRANKLIN WIGGINS Rep #:[id number] : [...] nephrostomy tube we will continue to follow. [facility] Medical History Chronic hypotension Obesity (BMI 30-39.9) [...] 85.5 H, Lymph % (Auto) 4.6 L, Clayton % (Auto) 7.4, Eos % (Auto) 1.2, [...] 85.6 H, Lymph % (Auto) 4.3 L, Clayton % (Auto) 7.3, Eos % (Auto) 0.5, [...] 3. Left-sided ureteral stent noted. Reading [facility] 10/30/24 09:11 IMPRESSION: NG tube in satisfactory position. Reading Location[facility] 10/30/24 0958 <Electronically signed by Foster Rascon MD> Cosigner Signature (if applicable): CC: No Primary Care Physician~ Signed [facility] Work Phone: [phone] Progress note Author Buster Fuchs [facility] Note Date/Time October 30, 2024 8:2 9am [facility] Medical Records Department [address] [place] [address] Progress Note - Hospitalist 10/30/24 0820 MR#: [id number] Acct: [id number] Name: FRANKLIN WIGGINS Rep #:[id number] : [...] 85.5 H, Lymph % (Auto) 4.6 L, Clayton % (Auto) 7.4, Eos % (Auto) 1.2, [...] 85.6 H, Lymph % (Auto) 4.3 L, Clayton % (Auto) 7.3, Eos % (Auto) 0.5, [...] 3. Left-sided ureteral stent noted. Reading Location: [facility] Rhythm Strip Rhythm Strip: Sinus Rhythm Rate: [...] antibiotics ? Cultures are pending ? Appreciate sales department clerk assistance 2. Acute metabolic cephalopathy with nonalcoholic [...] DVT: SCDs Charges/Coding Visit Charges Inpatient E&M: 14270 Subs Hosp L2 10/30/24 0829 <Electronically signed by Buster Fuchs MD> Cosigner Signature (if applicable): CC: ~ Signed [facility] Work Phone: [phone] Radiology Diagnostic study [facility]03-28-2025 Consult note Author Foster Rascon [facility] Note Date/Time October 29, 2024 10: 32am [facility] Medical Records Department [address] [address] Consultation - Urology 10/29/24 0808 MR#: [id number] Acct: [id number] Name: FRANKLIN WIGGINS Rep #:[id number] : [...] emergency intervention is necessary from my standpoint [facility] Medical History Chronic hypotension Obesity (BMI 30-39.9) [...] 83.0 H, Lymph % (Auto) 5.6 L, Clayton % (Auto) 8.4, Eos % (Auto) 1.4, [...] vertebral body compression fracture deformities. Reading Location: [id number] 10/29/24 1032 <Electronically signed by Foster Rascon MD> Cosigner Signature (if applicable): CC: No Primary Care Physician~ Signed [facility] Work Phone: [phone] Consult note Author Bola Meraz [facility] Note Date/Time October 29, 2024 10: 24am [facility] Medical Records Department [address] [place] [address] Consultation - Crime Scene Evidence Technician 10/29/24 0744 MR#: [id number] Acct: [id number] Name: FRANKLIN WIGGINS #:[id number] : 1965 59 From: Bola [...] coverage initiated. This note was generated with [employer] dictation software. It may contain incorrectwords, spelling, [...] stable, without the need for vasopressor support. [facility] Medical History Chronic hypotension Obesity (BMI 30-39.9) [...] 83.0 H, Lymph % (Auto) 5.6 L, Clayton % (Auto) 8.4, Eos % (Auto) 1.4, [...] vertebral body compression fracture deformities. Reading Location: [facility] Charges/Coding Visit Charges Inpatient E&M: 67113 Init Hosp L3 10/29/24 1024 <Electronically signed by Bola Meraz DO> Cosigner Signature (if applicable): CC: No Primary Care Physician~ Signed [facility] Work Phone: [phone] Radiology Diagnostic study [facility]03-28-2025 History and physical note Author Hill Wright [facility] Note Date/Time October 29, 2024 6:4 7am [facility] Medical Records Department [address] [facility] [place] [address] H&P Exam - Hospitalist 10/29/24 0033 MR#: [id number] Acct: [id number] Name: FRANKLIN WIGGINS Rep #:[id number] : [...] toSeptember 02, 2024 with patient diagnosed with mdvig-we-ymeodec hypotension in thesetting of acute hepatic encephalopathy [...] fluid removed who once again presents to [facility] ER complaining of abdominal pain, back [...] thatis expected to extend beyond 2 midnights. [facility] Medical History Chronic hypotension Obesity (BMI 30-39.9) [...] 83.0 H, Lymph % (Auto) 5.6 L, Clayton % (Auto) 8.4, Eos % (Auto) 1.4, [...] vertebral body compression fracture deformities. Reading Location: [id number] Assessment & Plan Assessment/Plan (1) Sepsis: QUALIFIERS: [...] and sensitivity data. Give acetaminophen prn for ymkl-ko-wwnytwyv (level 1-5/10) pain or fever. Give morphine [...] appreciated in advance. Finally, we will consult sales department clerk to see this patient on-rounds in the AM for further recommendations with help appreciated in advance. 2. Admission here from August 29, 2024 to September 02, 2024 with patient diagnosed with qplfa-lu-xyeszue hypotension in the setting of acute hepatic [...] responsive hypotension Charges/Coding Visit Charges Inpatient E&M: 85727 Init Hosp L3 10/29/24 0647 <Electronically signed by Hill Caro DO> Cosigner Signature (if applicable): CC: Dr. Hill Caro DO; No Primary Care Physician~ Signed [facility] Work Phone: [phone]) [phone] Consult note Author Ale Renee [facility] Note Date/Time October 29, 2024 3:3 4am [facility] Medical Records Department [address] [place] [address] Pharmacokinetic/Renal -Consult 10/29/24316 MR#: [id number] Acct: [id number] Name: FRANKLIN WIGGINS Rep #:[id number] : [...] Date Hill Caro DO CC: ~ Signed [facility] Work Phone: [phone] Discharge summary Author Alber Dunn [facility] Note Date/Time October 29, 2024 1:0 4am [facility] Medical Records Department [address] [place] [address] Emergency Department Summary 10/28/24 MR#: [id number] Acct: [id number] Name: FRANKLIN WIGGINS Rep #:[id number] : [...] Prior similar symptoms: Yes Recent [facility]ness[facility] Medical History Chronic hypotension Obesity (BMI 30-39.9) [...] There is a pressure was 81/50 5 iotkdd81/60 when I am in the room it [...] 83.0 H Lymph % (Auto) 5.6 L Clayton % (Auto) 8.4 Eos % (Auto) 1.4 [...] Clarity Cloudy Urine pH 6.5 Ur Specific Nazlini 1.015 Urine Protein 500 H Urine Glucose [...] vertebral body compression fracture deformities. Reading Location: [facility] Rhythm Strip Rhythm Strip: Sinus [...] 30-74 minutes, Including time spent:,Discussing w/Patient &/or Family/Waist Presser, Discussing w/Consultants, ArrangingAdmission or Transfer, Performing Direct Patient Care at Bedside and - (38 min) Discharge Plan Dx/Rx/DC Orders Clinical Impression: Chronic back pain, Chronic abdominal pain, Leukocytosis, Acute UTI, Acute hypotension, Acidosis, lactic, Sepsis Disposition [facility] What to do if you have Problems For any increased pain, shortness of breath, bleeding, nausea or vomiting, chestpain, or any unexpected problems, contact your Primary Care Provider. Call [facility] ([phone]) or report to the closest Emergency Room. Call 911 if necessary. 10/29/24 0104 <Electronically signed by Alber Dunn MD> Cosigner Signature (if applicable): CC: No Primary Care Physician ~ Signed [facility] Work Phone: [phone]) [phone] Evaluation note* Diagnosis Onset Date Resolution Status Admit Date Clostridium difficile colitis acute October 29, 2024 12:43am History of uric acid staghor n calculus acute October 29, 2024 12:43am Hyponatremia acute October 29, 2024 12:43am Leukocytosis acute October 29, 2024 12:43am Obesity (BMI 30.0-34.9) acute M arch 2024 12:43am Chronic abdominal pain chronic [facility] 2024 12:43am Chronic back pain chronic October [...] 2024 7:00am Lactic acidosis acute January 7:00am [facility] Work Phone: [phone] Evaluation note* Diagnosis Onset Date Resolution Status [...] January 7:00am Umbilical hernia acute January 7:00am [facility] Work Phone: [phone] Evaluation note* Diagnosis Onset Date Resolution Status Admit Date Clostridium difficile colitis acute October 29, 2024 12:43am History of uric acid staghor n calculus acute October 29, 2024 12:43am Hyponatremia acute October 29, 2024 12:43am Leukocytosis acute October 29, 2024 12:43am Obesity (BMI 30.0-34.9) acute M arch 2024 12:43am Chronic abdominal pain chronic [facility] 2024 12:43am Chronic back pain chronic October [...] acute January 28 7:00am Hepatic encephalopathy resolved 2024 7:00am Lactic acidosis resolved January 7:00am Umbilical hernia inactive January 7:00am [facility] Work Phone: [phone] Evaluation note* Diagnosis Onset Date Resolution Status Admit Date Clostridium difficile colitis acute October 29, 2024 12:43am History of uric acid staghor n calculus acute October 29, 2024 12:43am Hyponatremia acute October 29, 2024 12:43am Leukocytosis acute October 29, 2024 12:43am Obesity (BMI 30.0-34.9) acute M 2024 12:43am Chronic abdominal pain chronic [facility] 2024 12:43am Chronic back pain chronic October [...] acute January 28 7:00am Hepatic encephalopathy resolved 2024 7:00am Lactic acidosis resolved January 7:00am Umbilical hernia inactive January 7:00am Cirrhosis of liver with ascites acut e February 16, 2025 6:26pm Elevated liver enzymes acute Ju 2024 6:26pm History of diabetes mellitus acute February 16, 2025 6:26pm Hyperammonemia acute February 16, 2025 6:26pm Chronic anemia chronic February 16, 2025 6:26pm [facility] Work Phone: [phone] Evaluation note* Diagnosis Onset Date Resolution Status [...] Chronic anemia chronic February 16, 2025 6:26pm [facility] Work Phone: [phone] Evaluation note* Diagnosis Onset Date Resolution Status Admit Date Clostridium difficile colitis acute October 29, 2024 12:43am History of uric acid staghor n calculus acute October 29, 2024 12:43am Hyponatremia acute October 29, 2024 12:43am Leukocytosis acute October 29, 2024 12:43am Obesity (BMI 30.0-34.9) acute M arch 2024 12:43am Chronic abdominal pain chronic [facility] 2024 12:43am Chronic back pain chronic October [...] Compression fracture of thoracic spine, non-traumatic acute 2024 2:16pm Leukocytosis acute January 09 2:16pm [...] 16, 2025 6:26pm Decompensated cirrhosis inactive Tee contehy 2024 6:26pm Elevated liver enzymes inactive Ju [...] Hepatic cirrhosis acute March 10, 2025 1:52pm [facility] Work Phone: [phone] Discharge summary [facility] Medical Records Department [facility] [place] [address] [address] Emergency Department Summary 10/28/24 MR#: [id number] Acct: [id number] Name: FRANKLIN WIGGINS Rep #:[id number] : [...] Currently he is stable at12:10 AM. [facility] blood pressure is 110/67. Spoke to [...] 83.0 H Lymph % (Auto) 5.6 L Clayton % (Auto) 8.4 Eos % (Auto) 1.4 [...] Clarity Cloudy Urine pH 6.5 Ur Specific Nazlini 1.015 Urine Protein 500 H Urine Glucose [...] vertebral body compression fracture deformities. Reading Location: [facility] Rhythm Strip Rhythm Strip: Sinus [...] 30-74 minutes, Including time spent:,Discussing w/Patient &/or Family/Waist Presser, Discussing w/Consultants, ArrangingAdmission or Transfer, Performing Direct Patient Care at Bedside and - (38 min) Discharge Plan Dx/Rx/DC Orders Clinical Impression: Chronic back pain, Chronic abdominal pain, Leukocytosis, Acute UTI, Acute hypotension, Acidosis, lactic, Sepsis Disposition Disposition: [facility] What to do if you have Problems For any increased pain, shortness of breath, bleeding, nausea or vomiting, chestpain, or any unexpected problems, contact your Primary Care Provider. [facility] ([phone]) or report tothe closest Emergency Room. Call 911 if necessary. 10/29/24 0104 Cosigner Signature (if applicable): CC: No Primary Care Physician ~ Signed [facility]03-27-2025 Radiology Diagnostic study note [facility] Imaging Services [address] [place] [address] Abdomen/Pelvis W IV Cont ONLY MR#: [id number] Acct: [id number] Name: FRANKLIN WIGGINS Rep #: [id number] : 1965 M 59 From: Cassandra Starkey MD PCP: Care Physician,No Primary Status: REG ER Study:Abdomen/Pelvis W IV Cont ONLY Date of E xam: 10/28/24 Exam# [id number] Ordering Dr: Tee Dunn MD PROCEDURE: ABDOMEN/PELVIS [...] vertebral body compression fracture deformities. Reading Location: [facility] CC: Dr. Alber Dunn MD; No Primary Care Physician ~ Racking Machine Operator: Signed [facility]03-27-2025 Discharge summary Author Alber Dunn [facility] Note Date/Time October 29, 2024 1:0 4am [facility] Medical Records Department [address] [place] [address] Emergency Department Summary 10/28/24 MR#: [id number] Acct: [id number] Name: FRANKLIN WIGGINS Rep #:[id number] : [...] similar symptoms: Yes Recent Illness/Hospitalization: No [facility] Medical History Chronic hypotension Obesity (BMI 30-39.9) [...] There is a pressure was 81/50 5 fmokki17/60 when I am in the room it [...] 83.0 H Lymph % (Auto) 5.6 L Clayton % (Auto) 8.4 Eos % (Auto) 1.4 [...] Clarity Cloudy Urine pH 6.5 Ur Specific Nazlini 1.015 Urine Protein 500 H Urine Glucose [...] vertebral body compression fracture deformities. Reading Location: [facility] Rhythm Strip Rhythm Strip: Sinus [...] 30-74 minutes, Including time spent:,Discussing w/Patient &/or Family/Waist Presser, Discussing w/Consultants, ArrangingAdmission or Transfer, Performing Direct Patient Care at Bedside and - (38 min) Discharge Plan Dx/Rx/DC Orders Clinical Impression: Chronic back pain, Chronic abdominal pain, Leukocytosis, Acute UTI, Acute hypotension, Acidosis, lactic, Sepsis Disposition Disposition: [facility] What to do if you have Problems For any increased pain, shortness of breath, bleeding, nausea or vomiting, chestpain, or any unexpected problems, contact your Primary Care Provider. Call [facility] ([phone]) or report to the closest Emergency Room. Call 911 if necessary. 10/29/24 0104 <Electronically signed by Alber Dunn MD> Cosigner Signature (if applicable): CC: No Primary Care Physician ~ Signed [facility] Work Phone: [phone]) 244-791603-03-2025 Procedure note* Joey Huang DO - 10/04/2024 5:17 PM ESTAssociated Order(s): Paracentesis Post-Procedure Diagnose(s): Other ascites Paracentesis Date/Time: 10/04/2024 5:17 PM Performed by: Joey Huang DO Authorized by: Joey Huang DO Consent: Consent obtained: Written Consent given by: Patient Risks, benefits, and alternatives were discussed: yes Risks discussed: Bleeding, bowel perforation and infection Alternatives discussed: No treatment Hammond protocol: Procedure explained and questions answered to [...] Adhesive bandage Post-procedure details: Procedure completion: Tolerated [facility] Work Phone: 1([phone]) [phone] Procedure note* Joey Huang DO - 10/04/2024 5:17 PM ESTAssociated Order(s): Paracentesis Post-Procedure Diagnose(s): Other ascites Paracentesis Date/Time: 10/04/2024 5:17 PM Performed by: Joey Huang DO Authorized by: Joey Huang DO Consent: Consent obtained: Written Consent given by: Patient Risks, benefits, and alternatives were discussed: yes Risks discussed: Bleeding, bowel perforation and infection Alternatives discussed: No treatment Hammond protocol: Procedure explained and questions answered to [...] details: Procedure completion: Tolerated documented in this [facility] Work Phone: 1([phone]) 410-878803-03-2025 Consult note* Joey Huang DO - 10/04/2024 [...] call Assessment & Plan Joey Huang DO [facility] Work Phone: 1([phone]) [phone] Consult note* Joey Huang DO - 10/04/2024 [...] Plan Joey Huang DO documented in this [facility] Work Phone: [phone]) [phone] Physician Emergency department Note* Srriam Oleary PA-C - [...] Abnormality Status --------- ------ Urinalysis with Reflex C...[[id number]] Extra Urine Toney Tube[[id number]] Please view results for these tests on the individual orders. URINALYSIS WITH REFLEX CULTURE AND MICROSCOPIC EXTRA URINE TONEY TUBE PH, BODY FLUID LACTATE DEHYDROGENASE, BODY FLUID Narrative: The following orders were created for panel order Lactate Dehydrogenase, Body Fluid. Procedure Abnormality Status --------- ------ Lactate Dehydrogenase, B...[[id number]] In process Please view results for these tests on the individual orders. GLUCOSE, BODY FLUID Narrative: The following orders were created for panel order Glucose, Body Fluid. Procedure Abnormality Status --------- ------ Glucose, Body Fluid[[id number]] In process Please view results for these tests on the individual orders. PROTEIN, TOTAL, BODY FLUID Narrative: The following orders were created for panel order Protein, Total, Body Fluid. Procedure Abnormality Status --------- ------ Protein, Total, Body Fluid[[id number]] In process Please view results for these tests on the individual orders. BODY FLUID CELL COUNT WITH DIFFERENTIAL Narrative: The following orders were created for panel order Body Fluid Cell Count With Differential. Procedure Abnormality Status --------- ------ Body Fluid Cell Count[[id number]] In process Body Fluid Differential[[id number]] In process Please view results for these tests on the individual orders. ALBUMIN, BODY FLUID Narrative: The following orders were created for panel order Albumin, Body Fluid. Procedure Abnormality Status --------- ------ Albumin, Body Fluid[[id number]] In process Please view results for these [...] Yohana Huang 10/04/2024 2:28 PM Dictation workstation: [id number] Procedures Medical Decision Making Patient is a [...] cirrhosis type (Multi) Sriram Oleary PA-C 10/04/241736 [facility] Work Phone: 1([phone]) 860-968703-03-2025 Emergency department Note* Sriram Oleary PA-C - [...] Abnormality Status --------- ------ Urinalysis with Reflex C...[[id number]] Extra Urine Toney Tube[[id number]] Please view results for these tests on the individual orders. URINALYSIS WITH REFLEX CULTURE AND MICROSCOPIC EXTRA URINE TONEY TUBE PH, BODY FLUID LACTATE DEHYDROGENASE, BODY FLUID Narrative: The following orders were created for panel order Lactate Dehydrogenase, Body Fluid. Procedure Abnormality Status --------- ------ Lactate Dehydrogenase, B...[[id number]] In process Please view results for these tests on the individual orders. GLUCOSE, BODY FLUID Narrative: The following orders were created for panel order Glucose, Body Fluid. Procedure Abnormality Status --------- ------ Glucose, Body Fluid[[id number]] In process Please view results for these tests on the individual orders. PROTEIN, TOTAL, BODY FLUID Narrative: The following orders were created for panel order Protein, Total, Body Fluid. Procedure Abnormality Status --------- ------ Protein, Total, Body Fluid[[id number]] In process Please view results for these tests on the individual orders. BODY FLUID CELL COUNT WITH DIFFERENTIAL Narrative: The following orders were created for panel order Body Fluid Cell Count With Differential. Procedure Abnormality Status --------- ------ Body Fluid Cell Count[[id number]] In process Body Fluid Differential[[id number]] In process Please view results for these tests on the individual orders. ALBUMIN, BODY FLUID Narrative: The following orders were created for panel order Albumin, Body Fluid. Procedure Abnormality Status --------- ------ Albumin, Body Fluid[[id number]] In process Please view results for these [...] Yohana Huang 10/04/2024 2:28 PM Dictation workstation: [id number] Procedures Medical Decision Making Patient is a [...] Sriram Oleary PA-C 10/04/241736 documented in this [facility] Work Phone: 1(654) 266-453302-26-2025 Evaluation note* Diagnosis Onset Date Resolution Status [...] 2 :16pm Umbilical hernia acute January 2:16pm [facility] Work Phone: 1(628) 715-881202-26-2025 Procedure note [facility] Medical Records Department [address] [place] [address] Operative Report 09/29/24 1048 MR#: [id number] Acct: [id number] Name: FRANKLIN WIGGINS Rep #:[id number] : 1965 59 From: Jasmine gusman NP MERCHANDISING ASSISTANT-C PCP: Care Physician,No Primary Status :REG CLI Location: US Problems Associated Problem List Diagnoses (1) Abdominal ascites: Multi Select Codes Radiology Radiology US Procedures: 53530 Paracentesis Operative Report (Standard) Operative Information Date of Procedure: 09/29/24 Pre-Operative Diagnosis: Abdominal ascites Post-Operative Diagnosis: Abdominal ascites Surgery/Procedure Performed: Ultrasound-guided paracentesis feed handler: No Type of Anesthesia: Local Procedure Start [...] the peritoneal cavity was accessed with a 5-Surinamese paracentesis needle/catheter system. The trocar was removed. [...] No Primary Care Physician; DIANE CALLAHAN~ Signed [facility]02-02-2025 Evaluation note* Diagnosis Onset Date Resolution [...] encephalopathy inactive bruary 2024 1:46am Hyperbilirubinemia inactive Februa ry 2024 1:46am Hypotension inactive September 05, 2024 1:46am 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) inactive September 05 025 1:46am Obesity (BMI 30-39.9) inactive Sep ru2024 1:46am ABBY on CPAP inactive September 05, 2024 1:46am Cirrhosis of liver deleted Februa ry 2024 1:46am Abdominal ascites acute ua y 2024 9:35am Clostridium difficile colitis acute [...] 6:06am Fall acute January 02, 2025 6:06am [facility] Work Phone: 1(222) 982-860602-02-2025 Evaluation note* Diagnosis Onset Date Resolution Status [...] 2024 12:43am Chronic abdominal pain chronic [facility] 2024 12:43am Chronic back pain chronic October [...] 2:16pm Sepsis acute January 09, 2025 2:16pm [facility] Work Phone: 1(402) 151-734001-27-2025 Evaluation note* Diagnosis Onset Date Resolution Status [...] Hepatic encephalopathy inactive bru2024 1:46am Hyperbilirubinemia inactive ua ry 2024 1:46am Hypotension inactive September 05, 2024 1:46am 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) inactive September 05, 2 025 1:46am Obesity (BMI 30-39.9) inactive Sep 1:46am ABBY on CPAP inactive September 05, 2024 1:46am Cirrhosis of liver deleted 2024 1:46am Abdominal ascites acute r 2024 9:35am [facility] Work Phone: 1(917) 171-834101-27-2025 Evaluation note* Diagnosis Onset Date Resolution Status [...] 29 12:43am Chronic abdominal pain chronic Ma [facility] 2024 12:43am Chronic back pain chronic October 032024 12:43am [facility] Work Phone: 1(482) 661-751301-27-2025 Evaluation note* Diagnosis Onset Date Resolution Status [...] 29 12:43am Chronic abdominal pain chronic Ma [facility] 2024 12:43am Chronic back pain chronic October 032024 12:43am [facility] Work Phone: 1(319) 675-374401-27-2025 Evaluation note* Diagnosis Onset Date Resolution Status [...] 4:28am Staghorn calculus acute November 032024 4:28am [facility] Work Phone: 1([phone]) 956-734701-27-2025 Evaluation note* Diagnosis Onset Date Resolution Status [...] infection) resolv ed November 28, 2024 4:51pm [facility] Work Phone: Discharge summary Author Herberth Carlson [facility] Note Date/Time November 21, 2024 4:1 6am [facility] Medical Records Department [address] [place] [address] Emergency Department Summary 11/21/24 MR#: [id number] Acct: [id number] Name: FRANKLIN WIGGINS Rep #:[id number] : [...] discontinue his lactulose. He was recently admitted [facility] for cirrhosis and other issues, he states [...] toilet after multiple attempts over couple hours. [facility] Medical History Diarrhea Sepsis Acidosis, [...] (Auto) 68.7 Lymph % (Auto) 13.9 L Clayton % (Auto) 9.2 Eos % (Auto) 7.2 [...] Sl Cldy Urine pH 6.0 Ur Specific Nazlini 1.015 Urine Protein 500 H Urine Glucose [...] Primary [Primary Care Provider] - Print Language: Cape Verdean Disposition Disposition: Acute Care [facility] What to do if you have Problems For any increased pain, shortness of breath, bleeding, nausea or vomiting, chestpain, or any unexpected problems, contact your Primary Care Provider. Call [facility] ([phone]) or report to the closest Emergency Room. Call 911 if necessary. 11/21/24 0416 <Electronically signed by Herberth Carlson MD> Cosigner Signature (if applicable): CC: No Primary Care Physician ~ Signed [facility] Work Phone: Discharge summary Author Mina Blood [facility] Note Date/Time December 30, 2024 5:19a m [facility] Medical Records Department [address] [place] [address] Emergency Department Summary 12/30/24 MR#: [id number] Acct: [id number] Name: FRANKLIN WIGGINS Rep #:[id number] : [...] recent trauma prior to the pain beginning. [facility] Medical History Weakness Diarrhea Sepsis [...] Labs: Laboratory Results - last 24 hr 0512/30/24 12/30/24 01:15 02:05 03:32 WBC 9.4 RBC 2.93 L Hgb 8.7 L Hct 25.8 L MCV 88.1 MCH 29.7 MCHC 33.7 RDW Std Deviation 50.9 H RDW Coeff of Francis 16.1 H Plt Count 131 L MPV 13.4 H Immature Gran % (Auto) 0.600 Neut % (Auto) 69.7 Lymph % (Auto) 14.0 L Clayton % (Auto) 9.1 Eos % (Auto) 6.2 [...] Clarity Cloudy Urine pH 6.5 Ur Specific Nazlini 1.010 Urine Protein 100 H Urine Glucose [...] No evidence of acute disease. Reading Location: [facility] Chest x-ray as interpreted by the [...] you have any further concerns Print Language: Cape Verdean Disposition Disposition: Home, Self Care What to do if you have Problems For any increased pain, shortness of breath, bleeding, nausea or vomiting, chestpain, or any unexpected problems, contact your Primary Care Provider. Call [facility] ([phone]) or report to the closest Emergency Room. Call 911 if necessary. 12/30/24 0519 <Electronically signed by Mina Blood DO> Cosigner Signature (if applicable): CC: MERCHANDISING ASSISTANT-C Josy Elias ~ Signed [facility] Work Phone: Discharge summary Author [facility] Note Date/Time January 02, 2025 6:00a m [facility] Medical Records Department [address] [place] [address] Emergency Department Summary 01/02/25 MR#: [id number] Acct: [id number] Name: FRANKLIN WIGGINS Rep #:[id number] : [...] was here recently and was sent home. [facility] Medical History Weakness Diarrhea Sepsis [...] (Auto) 68.0 Lymph % (Auto) 12.2 L Clayton % (Auto) 11.9 H Eos % (Auto) [...] Clarity Turbid Urine pH 6.0 Ur Specific Nazlini 1.015 Urine Protein 100 H Urine Glucose [...] insufficiency fracture again noted, unchanged. Reading Location: [facility] Brain CT 01/02/25 03:55 IMPRESSION: No intracranial hemorrhage, mass effect or calvarial fracture. Moderate volume loss, atrophy again noted. Mild left maxillary sinus disease appears mildly decreased from the prior study. Reading Location: [facility] Cervical Spine CT 01/02/25 03:55 IMPRESSION: No fracture or malalignment. Multilevel spondylosis/discogenic change greatest at C5-6 Reading Location: [facility] Discharge Plan Triage Chief Complaint: Weakness [...] Care Provider: Josy Elias Referrals: Josy Elias, YG [Primary Care Provider] - Print Language: [place] Verdean Disposition Disposition: Acute Care [facility] What to do if you have Problems For any increased pain, shortness of breath, bleeding, nausea or vomiting, chestpain, or any unexpected problems, contact your Primary Care Provider. Call [facility] ([phone]) or report to the closest Emergency Room. Call 911 if necessary. 01/02/25 0600 <Electronically signed by Roddy Reeves DO> Cosigner Signature (if applicable): CC: YG Elias ~ Signed [facility] Work Phone: Discharge summary Author Mina Blood [facility] Note Date/Time February 08, 2025 3:03a m [facility] Medical Records Department [address] [place] [address] Emergency Department Summary 02/08/25 MR#: [id number] Acct: [id number] Name: FRANKLIN WIGGINS Rep #:[id number] : [...] bouts of constipation fevers chills or dysuria. [facility] Medical History (Updated 02/08/25 @ 03:03 by [...] surgery as fat necrosis is a nonemergent ndj-kglq-eocyjdhjkol process. The patient will be given pain [...] 72.8 H Lymph % (Auto) 12.8 L Clayton % (Auto) 8.1 Eos % (Auto) 5.4 [...] double-J stent in place. Anasarca. Reading Location: [place] [address] Discharge Plan Triage Chief Complaint: Abd Pain [...] Ambulatory Orders: Paracentesis with US (Routine) Facility: [facility] - Location: [facility] Ordered By: Dr. Mina Blood Primary [...] you have any further concerns. Print Language: [place]an Disposition Disposition: Home, Self Care What to do if you have Problems For any increased pain, shortness of breath, bleeding, nausea or vomiting, chestpain, or any unexpected problems, contact your Primary Care Provider. Call [facility] ([phone]) or report to the closest Emergency Room. Call 911 if necessary. 02/08/25 0303 <Electronically signed by Mina Blood DO> Cosigner Signature (if applicable): CC: Dr. Jerald Sherwood MD ~ Signed [facility] Work Phone: Evaluation note* Diagnosis Other ascites- Primary Abdominal pain, generalized Cirrhosis of liver with ascites, unspecified hepatic cirrhosis type (Multi) Peripheral edema Edema Coagulopathy (Multi) Other and unspecified coagulation defects Hyperbilirubinemia Disorders of bilirubin excretion documented in this encounter [facility] Work Phone: Evaluation note* Diagnosis Metabolic dysfunction-associated steatohepatitis (MASH)- Primary documented in this encounter [facility] note* Diagnosis Liver transplant candidate- Primary Metabolic dysfunction-associated steatohepatitis (MASH) documented in this encounter [facility] note* Diagnosis Pre-transplant evaluation for liver transplant- Primary documented in this encounter [facility] note* Diagnosis Liver transplant candidate- Primary Pre-operative clearance Preoperative examination, unspecified documented in this encounter [facility] note* Diagnosis Screening for genitourinary condition Screening for other and unspecified genitourinary condition [facility] Buster Fuchs [facility] Note Date/Time January 02, 2025 6:44a m [facility] Medical Records Department [address] [place] [address] H&P Exam - Hospitalist 01/02/25 0556 MR#: [id number] Acct: [id number] Name: FRANKLIN WIGGINS Rep #:[id number] : 1965 59 From: Buster duarte MD PCP: YG Pena Status:ADM I N Location: [place] [id number]- 1 HPI - General General Date of [...] At that time he was transferred to [facility] 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 Was not considered to be a liver transplant candidate and was placed on anticoagulation. He has had a couple of readmissions for weakness and debility. [place] to possibly have aUTI given a staghorn [...] Heis receiving potassium infusion in the ER. [facility] Medical History Weakness Diarrhea Sepsis Acidosis, lactic [...] (Auto) 68.0, Lymph % (Auto) 12.2 L, Clayton % (Auto) 11.9 H, Eos % (Auto) [...] insufficiency fracture again noted, unchanged. Reading Location: [facility] Brain CT 01/02/25 03:55 IMPRESSION: No intracranial hemorrhage, mass effect or calvarial fracture. Moderate volume loss, atrophy again noted. Mild left maxillary sinus disease appears mildly decreased from the prior study. Reading Location: [facility] Cervical Spine CT 01/02/25 03:55 IMPRESSION: No fracture or malalignment. Multilevel spondylosis/discogenic change greatest at C5-6 Reading Location: [facility] Assessment & Plan Assessment/Plan (1) Fall: [...] once verified Charges/Coding Visit Charges Inpatient E&M: 11285 Init Hosp L2 01/02/25 0644 <Electronically signed by Buster Fuchs MD> Cosigner Signature (if applicable): CC: YG Elias; Dr. Buster Fuchs MD~ Signed [facility] Work Phone: Hospital Discharge instructions* Attachments The following attachments cannot be sent through Care Everywhere. * Cirrhosis (C[place] Verdean) * Abdominal pain ([place]an) documented in this [facility] Work Phone: Hospital Discharge instructions Additional [...] the ER should you have any further [facility] Work Phone: Hospital Discharge instructionsAdditional Instructions Your [...] the ER should you have any further concerns.[facility] Work Phone: Hospital Discharge instructionsAdditional Instructions Thank you for trusting us with your care today! Please take Tylenol (2 pills, 650 mg), ibuprofen (2 pills, 400 mg) every 6 hours as needed for pain and fever control. Please return to the emergency department if your symptoms change or worsen. Please follow with your primary care physician for further outpatient evaluation and management.[facility] Work Phone: Hospital Discharge instructionsAdditional Instructions Take your short acting insulin and long-acting insulin as home as prescribed, you may need to give additional units if it continues to run high. Contact your hospice group.[facility] Work Phone: Hospital Discharge instructionsAdditional Instructions [facility]: [facility]: Reason for referral (narrative)No reason for referral information availableMercy Health [facility] Work Phone: Summary Purpose Family History [...] Will No August 21 2:51pm Power of Civil Defense Director No August 21, 2024 2:51pm Living Will No August 30 12:39am Power of Civil Defense Director No August 30, 2024 12:39am Living Will No September 05 4:42am Power of Civil Defense Director No September 05, 2024 4:42am Advance Directive Response Recorded Date/ Time Living Will No August 21 2:51pm Do you have a Healthcare Power of Civil Defense Director? No August 21, 2024 2:51pm Living Will No August 30 12:39am Do you have a Healthcare Power of Civil Defense Director? No August 30, 2024 12:39am Living Will No September 05 4:42am Do you have a Healthcare Power of Civil Defense Director? No September 05, 2024 4:42am Living Will No October 28, 2024 5:24pm Do you have a Healthcare Power of Civil Defense Director? No October 28, 2024 5:24pm Advance Directive Response Recorded Date/ Time Living Will No August 21 2:51pm Do you have a Healthcare Power of Civil Defense Director? No August 21, 2024 2:51pm Living Will No August 30 12:39am Do you have a Healthcare Power of Civil Defense Director? No August 30, 2024 12:39am Living Will No September 05 4:42am Do you have a Healthcare Power of Civil Defense Director? No September 05, 2024 4:42am Living Will No October 29, 2024 1:46am Do you have a Healthcare Power of Civil Defense Director? No October 29, 2024 1:46am Date Activated Date Inactivated Comments 11/11/2024 7:22 AM Question Answer Comments Full Code Order Discussed With: Patient Date Activated Date Inactivated Comments 11/11/2024 7:22 AM Advance Directive Response Recorded Date/ Time Living Will No August 21 2:51pm Do you have a Healthcare Power of Civil Defense Director? No August 21, 2024 2:51pm Living Will No August 30 12:39am Do you have a Healthcare Power of Civil Defense Director? No August 30, 2024 12:39am Living Will No September 05 4:42am Do you have a Healthcare Power of Civil Defense Director? No September 05, 2024 4:42am Living Will No October 29, 2024 1:46am Do you have a Healthcare Power of Civil Defense Director? No October 29, 2024 1:46am Living Will Yes November 21, 2024 1:32am Do you have a Healthcare Power of Civil Defense Director? Yes November 21, 2024 1:32am Name of Medical Power of Civil Defense Director anne Hernandez November 21, 2024 1:32am Advance Directive Response Recorded Date/ Time Living Will No August 21 2:51pm Do you have a Healthcare Power of Civil Defense Director? No August 21, 2024 2:51pm Living Will No August 30 12:39am Do you have a Healthcare Power of Civil Defense Director? No August 30, 2024 12:39am Living Will No September 05 4:42am Do you have a Healthcare Power of Civil Defense Director? No September 05, 2024 4:42am Living Will No October 29, 2024 1:46am Do you have a Healthcare Power of Civil Defense Director? No October 29, 2024 1:46am Living Will Yes November 21, 2024 5:32am Do you have a Healthcare Power of Civil Defense Director? Yes November 21, 2024 5:32am Name of Medical Power of Civil Defense Director anne Hernandez November 21, 2024 5:32am Do you have a Healthcare Power of Civil Defense Director? No Latanya 27th, 2025 5:49pm Advance Directive Response Recorded Date/ Time Living Will No August 30 12:39am Do you have a Healthcare Power of Civil Defense Director? No August 30, 2024 12:39am Living Will No September 05 4:42am Do you have a Healthcare Power of Civil Defense Director? No September 05, 2024 4:42am Living Will No October 29, 2024 1:46am Do you have a Healthcare Power of Civil Defense Director? No October 29, 2024 1:46am Living Will Yes November 21, 2024 5:32am Do you have a Healthcare Power of Civil Defense Director? Yes November 21, 2024 5:32am Name of Medical Power of Civil Defense Director anne Hernandez November 21, 2024 5:32am Do you have a Healthcare Power of Civil Defense Director? No November 28, 2024 5:49pm Advance Directive Response Recorded Date/ Time Living Will No August 30 12:39am Do you have a Healthcare Power of Civil Defense Director? No August 30, 2024 12:39am Living Will No September 05 4:42am Do you have a Healthcare Power of Civil Defense Director? No September 05, 2024 4:42am Living Will No October 29, 2024 1:46am Do you have a Healthcare Power of Civil Defense Director? No October 29, 2024 1:46am Living Will Yes November 21, 2024 5:32am Do you have a Healthcare Power of Civil Defense Director? Yes November 21, 2024 5:32am Name of Medical Power of Civil Defense Director anne Hernandez November 21, 2024 5:32am Do you have a Healthcare Power of Civil Defense Director? No November 28, 2024 5:49pm Do you have a Healthcare Power of Civil Defense Director? No December 26, 2024 10:02am Advance Directive Response Recorded Date/ Time Living Will No August 30 12:39am Do you have a Healthcare Power of Civil Defense Director? No August 30, 2024 12:39am Living Will No September 05 4:42am Do you have a Healthcare Power of Civil Defense Director? No September 05, 2024 4:42am Living Will No October 29, 2024 1:46am Do you have a Healthcare Power of Civil Defense Director? No October 29, 2024 1:46am Living Will Yes November 21, 2024 5:32am Do you have a Healthcare Power of Civil Defense Director? Yes November 21, 2024 5:32am Name of Medical Power of Civil Defense Director anne Hernandez November 21, 2024 5:32am Do you have a Healthcare Power of Civil Defense Director? No November 28, 2024 5:49pm Do you have a Healthcare Power of Civil Defense Director? No December 26, 2024 10:02am Do you have a Healthcare Power of Civil Defense Director? No December 30, 2024 1:06am Advance Directive Response Recorded Date/ Time Do you have a Healthcare Power of Civil Defense Director? No January 02, 2025 2:59am Living Will No September 05 4:42am Do you have a Healthcare Power of Civil Defense Director? No September 05, 2024 4:42am Living Will No October 29, 2024 1:46am Do you have a Healthcare Power of Civil Defense Director? No October 29, 2024 1:46am Living Will Yes November 21, 2024 5:32am Do you have a Healthcare Power of Civil Defense Director? Yes November 21, 2024 5:32am Name of Medical Power of Civil Defense Director anne Hernandez November 21, 2024 5:32am Do you have a Healthcare Power of Civil Defense Director? No November 28, 2024 5:49pm Do you have a Healthcare Power of Civil Defense Director? No December 26, 2024 10:02am Do you have a Healthcare Power of Civil Defense Director? No December 30, 2024 1:06am Advance Directive Response Recorded Date/ Time Do you have a Healthcare Power of Civil Defense Director? No January 02, 2025 8:14am Living Will No September 05 4:42am Do you have a Healthcare Power of Civil Defense Director? No September 05, 2024 4:42am Living Will No October 29, 2024 1:46am Do you have a Healthcare Power of Civil Defense Director? No October 29, 2024 1:46am Living Will Yes November 21, 2024 5:32am Do you have a Healthcare Power of Civil Defense Director? Yes November 21, 2024 5:32am Name of Medical Power of Civil Defense Director anne Hernandez November 21, 2024 5:32am Do you have a Healthcare Power of Civil Defense Director? No November 28, 2024 5:49pm Do you have a Healthcare Power of Civil Defense Director? No December 26, 2024 10:02am Do you have a Healthcare Power of Civil Defense Director? No December 30, 2024 1:06am Advance Directive Response Recorded Date/ Time Do you have a Healthcare Power of Civil Defense Director? No January 02, 2025 8:14am Living Will No September 05 4:42am Do you have a Healthcare Power of Civil Defense Director? No September 05, 2024 4:42am Living Will No October 29, 2024 1:46am Do you have a Healthcare Power of Civil Defense Director? No October 29, 2024 1:46am Living Will Yes November 21, 2024 5:32am Do you have a Healthcare Power of Civil Defense Director? Yes November 21, 2024 5:32am Name of Medical Power of Civil Defense Director anne Hernandez November 21, 2024 5:32am Do you have a Healthcare Power of Civil Defense Director? No November 28, 2024 5:49pm Do you have a Healthcare Power of Civil Defense Director? No December 26, 2024 10:02am Do you have a Healthcare Power of Civil Defense Director? No December 30, 2024 1:06am Do you have a Healthcare Power of Civil Defense Director? No January 09, 2025 10:10am Advance Directive Response Recorded Date/ Time Do you have a Healthcare Power of Civil Defense Director? No January 02, 2025 8:14am Living Will No October 29, 2024 1:46am Do you have a Healthcare Power of Civil Defense Director? No October 29, 2024 1:46am Living Will Yes November 21, 2024 5:32am Do you have a Healthcare Power of Civil Defense Director? Yes November 21, 2024 5:32am Name of Medical Power of Civil Defense Director anne Hernandez November 21, 2024 5:32am Do you have a Healthcare Power of Civil Defense Director? No November 28, 2024 5:49pm Do you have a Healthcare Power of Civil Defense Director? No December 26, 2024 10:02am Do you have a Healthcare Power of Civil Defense Director? No December 30, 2024 1:06am Do you have a Healthcare Power of Civil Defense Director? No January 09, 2025 3:31pm Advance Directive Response Recorded Date/ Time Do you have a Healthcare Power of Civil Defense Director? No January 02, 2025 8:14am Do you have a Healthcare Power of Civil Defense Director? No January 28, 2025 3:02am Living Will No October 29, 2024 1:46am Do you have a Healthcare Power of Civil Defense Director? No October 29, 2024 1:46am Living Will Yes November 21, 2024 5:32am Do you have a Healthcare Power of Civil Defense Director? Yes November 21, 2024 5:32am Name of Medical Power of Civil Defense Director anne Hernandez November 21, 2024 5:32am Do you have a Healthcare Power of Civil Defense Director? No November 28, 2024 5:49pm Do you have a Healthcare Power of Civil Defense Director? No December 26, 2024 10:02am Do you have a Healthcare Power of Civil Defense Director? No December 30, 2024 1:06am Do you have a Healthcare Power of Civil Defense Director? No January 09, 2025 3:31pm Advance Directive Response Recorded Date/ Time Do you have a Healthcare Power of Civil Defense Director? No January 02, 2025 8:14am Do you have a Healthcare Power of Civil Defense Director? No January 28, 2025 3:02am Living Will No October 29, 2024 1:46am Do you have a Healthcare Power of Civil Defense Director? No October 29, 2024 1:46am Living Will Yes November 21, 2024 5:32am Do you have a Healthcare Power of Civil Defense Director? Yes November 21, 2024 5:32am Name of Medical Power of Civil Defense Director anne Hernandez November 21, 2024 5:32am Do you have a Healthcare Power of Civil Defense Director? No November 28, 2024 5:49pm Do you have a Healthcare Power of Civil Defense Director? No December 26, 2024 10:02am Do you have a Healthcare Power of Civil Defense Director? No December 30, 2024 1:06am Do you have a Healthcare Power of Civil Defense Director? No January 09, 2025 3:31pm Do you have a Healthcare Power of Civil Defense Director? No February 07, 2025 10:20pm Advance Directive Response Recorded Date/ Time Do you have a Healthcare Power of Civil Defense Director? No January 02, 2025 8:14am Do you have a Healthcare Power of Civil Defense Director? No January 28, 2025 3:02am Living Will No October 29, 2024 1:46am Do you have a Healthcare Power of Civil Defense Director? No October 29, 2024 1:46am Living Will Yes November 21, 2024 5:32am Do you have a Healthcare Power of Civil Defense Director? Yes November 21, 2024 5:32am Name of Medical Power of Civil Defense Director anne Hernandez November 21, 2024 5:32am Do you have a Healthcare Power of Civil Defense Director? No November 28, 2024 5:49pm Do you have a Healthcare Power of Civil Defense Director? No December 26, 2024 10:02am Do you have a Healthcare Power of Civil Defense Director? No December 30, 2024 1:06am Do you have a Healthcare Power of Civil Defense Director? No January 09, 2025 3:31pm Do you have a Healthcare Power of Civil Defense Director? No February 07, 2025 10:20pm Do you have a Healthcare Power of Civil Defense Director? No February 13, 2025 4:40pm Advance Directive Response Recorded Date/ Time Do you have a Healthcare Power of Civil Defense Director? No January 02, 2025 8:14am Do you have a Healthcare Power of Civil Defense Director? No January 28, 2025 3:02am Living Will No October 29, 2024 1:46am Do you have a Healthcare Power of Civil Defense Director? No October 29, 2024 1:46am Living Will Yes November 21, 2024 5:32am Do you have a Healthcare Power of Civil Defense Director? Yes November 21, 2024 5:32am Name of Medical Power of Civil Defense Director anne Hernandez November 21, 2024 5:32am Do you have a Healthcare Power of Civil Defense Director? No November 28, 2024 5:49pm Do you have a Healthcare Power of Civil Defense Director? No December 26, 2024 10:02am Do you have a Healthcare Power of Civil Defense Director? No December 30, 2024 1:06am Do you have a Healthcare Power of Civil Defense Director? No January 09, 2025 3:31pm Do you have a Healthcare Power of Civil Defense Director? No February 07, 2025 10:20pm Do you have a Healthcare Power of Civil Defense Director? No February 13, 2025 4:40pm Do you have a Healthcare Power of Civil Defense Director? No February 16, 2025 6:30pm Advance Directive Response Recorded Date/ Time Do you have a Healthcare Power of Civil Defense Director? No January 02, 2025 8:14am Do you have a Healthcare Power of Civil Defense Director? No January 28, 2025 3:02am Living Will No October 29, 2024 1:46am Do you have a Healthcare Power of Civil Defense Director? No October 29, 2024 1:46am Living Will Yes November 21, 2024 5:32am Do you have a Healthcare Power of Civil Defense Director? Yes November 21, 2024 5:32am Name of Medical Power of Civil Defense Director anne Hernandez November 21, 2024 5:32am Do you have a Healthcare Power of Civil Defense Director? No November 28, 2024 5:49pm Do you have a Healthcare Power of Civil Defense Director? No December 26, 2024 10:02am Do you have a Healthcare Power of Civil Defense Director? No December 30, 2024 1:06am Do you have a Healthcare Power of Civil Defense Director? No January 09, 2025 3:31pm Do you have a Healthcare Power of Civil Defense Director? No February 07, 2025 10:20pm Do you have a Healthcare Power of Civil Defense Director? No February 13, 2025 4:40pm Do you have a Healthcare Power of Civil Defense Director? No February 16, 2025 7:47pm Advance Directive Response Recorded Date/ Time Do you have a Healthcare Power of Civil Defense Director? No January 02, 2025 8:14am Do you have a Healthcare Power of Civil Defense Director? No January 28, 2025 3:02am Do you have a Healthcare Power of Civil Defense Director? No February 25, 2025 5:00pm Living Will No October 29, 2024 1:46am Do you have a Healthcare Power of Civil Defense Director? No October 29, 2024 1:46am Living Will Yes November 21, 2024 5:32am Do you have a Healthcare Power of Civil Defense Director? Yes November 21, 2024 5:32am Name of Medical Power of Civil Defense Director anne Hernandez November 21, 2024 5:32am Do you have a Healthcare Power of Civil Defense Director? No November 28, 2024 5:49pm Do you have a Healthcare Power of Civil Defense Director? No December 26, 2024 10:02am Do you have a Healthcare Power of Civil Defense Director? No December 30, 2024 1:06am Do you have a Healthcare Power of Civil Defense Director? No January 09, 2025 3:31pm Do you have a Healthcare Power of Civil Defense Director? No February 07, 2025 10:20pm Do you have a Healthcare Power of Civil Defense Director? No February 13, 2025 4:40pm Do you have a Healthcare Power of Civil Defense Director? No February 16, 2025 7:47pm Do you have a Healthcare Power of Civil Defense Director? No March 11, 2025 5:16pm Advance Directive Response Recorded Date/ Time Do you have a Healthcare Power of Civil Defense Director? No January 02, 2025 8:14am Do you have a Healthcare Power of Civil Defense Director? No January 28, 2025 3:02am Do you have a Healthcare Power of Civil Defense Director? No February 25, 2025 5:00pm Do you have a Healthcare Power of Civil Defense Director? No April 03, 2025 8:27pm Do you have a Healthcare Power of Civil Defense Director? No December 26, 2024 10:02am Do you have a Healthcare Power of Civil Defense Director? No December 30, 2024 1:06am Do you have a Healthcare Power of Civil Defense Director? No January 09, 2025 3:31pm Do you have a Healthcare Power of Civil Defense Director? No February 07, 2025 10:20pm Do you have a Healthcare Power of Civil Defense Director? No February 13, 2025 4:40pm Do you have a Healthcare Power of Civil Defense Director? No February 16, 2025 7:47pm Do you have a Healthcare Power of Civil Defense Director? No March 10, 2025 8:43am Do you have a Healthcare Power of Civil Defense Director? No March 11, 2025 5:16pm Do you have a Healthcare Power of Civil Defense Director? No April 07, 2025 7:00pm Advance Directive Response Recorded Date/ Time Do you have a Healthcare Power of Civil Defense Director? No January 02, 2025 8:14am Do you have a Healthcare Power of Civil Defense Director? No January 28, 2025 3:02am Do you have a Healthcare Power of Civil Defense Director? No February 25, 2025 5:00pm Do you have a Healthcare Power of Civil Defense Director? No April 03, 2025 8:27pm Do you have a Healthcare Power of Civil Defense Director? No December 26, 2024 10:02am Do you have a Healthcare Power of Civil Defense Director? No December 30, 2024 1:06am Do you have a Healthcare Power of Civil Defense Director? No January 09, 2025 3:31pm Do you have a Healthcare Power of Civil Defense Director? No February 07, 2025 10:20pm Do you have a Healthcare Power of Civil Defense Director? No February 13, 2025 4:40pm Do you have a Healthcare Power of Civil Defense Director? No February 16, 2025 7:47pm Do you have a Healthcare Power of Civil Defense Director? No March 10, 2025 8:43am Do you have a Healthcare Power of Civil Defense Director? No March 11, 2025 5:16pm Do you have a Healthcare Power of Civil Defense Director? No April 07, 2025 11:36pm Chief Complaint and Reason for Visit Chief [...] HYPOTENSION August 31, 2024 10:21pm HEPATIC ENCEPHALOPATHY, SIABEL, HYPOTENSION September 01, 2024 4:54pm HEPATIC ENCEPHALOPATHY, [...] 10:48am SEPSIS, UTI, DIARRHEA & ABDOMINAL PAIN [facility] 2024 12:43am Reason for Visit Admit [...] History of uric acid staghorn calculus [facility] 2024 12:43am Hyponatremia October 29, [...] h2024 4:50pm SEPSIS WITH STAGHORN CALCULI September [id number] [...] 2:16pm Compression fracture of thoracic spine, non-traumatic Georgina 8th, 2025 2:16pm Leukocytosis January 09, 2025 2:16p [...] Date SEPSIS, UTI, DIARRHEA & ABDOMINAL PAIN [facility] 2024 12:43am Weakness November 21, 2024 4:2 [...] 1:5 2pm Hepatic encephalopathy April 07 11:18pm Chief Complaint Admit Date ABD PAIN December [...] 07, 2025 9:20pm HEPATIC ENCEPHALOPATHY April 07 9:24pm HEPATIC ENCEPHALOPATHY April 08 3:53am HEPATIC ENCEPHALOPATHY April 09 1:48pm HEPATIC ENCEPHALOPATHY April 10 10:46am Reason for Visit Admit Date Acute kidney [...] 2025 1:5 2pm Hepatic encephalopathy April 07 9:24pm Additional Source Comments Reason for Visit (unrecogniz ed section and content) Reason Comments Dental Clearance - Transplant Liver Specialty Diagnoses / Procedures Referred By Ginny alex Referred To Contact HOSP INPATIENT Diagnoses 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) Portal vein thrombosis Thrombus Procedures Evaluate and treat HOSP [facility] [id number] [place] [address] Phone: tel: Referral ID Status Reason Start Date Expiration Date Visits Re quested Visits Authorized [id number] 1 1 Reason Comments Abdominal Pain Patient [...] 2024 End: November 11, 2024 Yue Delgadillo MERCHANDISING ASSISTANT, MERCHANDISING ASSISTANT-C Other Provider Active St art: October 29, [...] Provider Active Start: October 29, 2024 Dr. Adonis Masterson MD Other Provider Active Start: October [...] Provider Active Start: October 30, 2024 Dr. Adonis Masterson MD Other Provider Active Start: October [...] Active Sta rt: October 30, 2024 Dr. Ptao Venegas MD Other Provider Active Star t: [...] Provider Active Start: October 30, 2024 Dr. Adonis Masterson MD Other Provider Active Start: October [...] Provider Active Start: October 31, 2024 Dr. Adonis Masterson MD Other Provider Active Start: October [...] Provider Active Start: November 05, 2024 Dr. iHll Caro DO Other Provider Active Start: November [...] Provider Active Start: November 06, 2024 Dr. iHll Caro DO Other Provider Active Start: November [...] Active Start: November 07, 2024 Dr. Hill aCro DO Other Provider Active Start: November 07, [...] Provider Active Start: November 10, 2024 Dr. Blari Cage MD Other Provider [...] Sta rt: November 10, 2024 Yue Delgadillo MERCHANDISING ASSISTANT, MERCHANDISING ASSISTANT-C Other Provider Active St art: November 10, [...] Member Role Status Dates Josydominique Elias , MERCHANDISING ASSISTANT-C Primary Care Provider Active Start: December 07, 2024 End: December 07, 2024 Josydominique Elias , MERCHANDISING ASSISTANT-C Attending Provider Active Start: December 07, 2024 End: December 07, 2024 Team Status: Inactive Member Role Status Dates Josydominique Elias , MERCHANDISING ASSISTANT-C Primary Care Provider Active Start: December 15, 2024 End: December 15, 2024 Josydominique Elias , MERCHANDISING ASSISTANT-C Attending Provider Active Start: December 15, 2024 End: December 15, 2024 Josydominique Elias , MERCHANDISING ASSISTANT-C Referring Provider Active Start: December 15, 2024 End: December 15, 2024 Team Status: Inactive Member Role Status Dates Josydominique Baumannhof , MERCHANDISING ASSISTANT-C Primary Care Provider Active Start: December 26, 2024 End: December 26, 2024 Dr. Boone Carvajal , Attending Provider Active Start: December 26, 2024 End: December 26, 2024 Dr. Boone Carvajal , Emergency Provider Active Start: December 26, 2024 End: December 26, 2024 Team Status: Inactive Member Role Status Dates Josydominique Elias , MERCHANDISING ASSISTANT-C Primary Care Provider Active Start: December 30, 2024 End: December 30, 2024 Dr. Mina Blood , Attending Provider Active Start: December 30, 2024 End: December 30, 2024 Dr. Mina Blood , Emergency Provider Active Start: December 30, 2024 End: December 30, 2024 Team Status: Inactive Member Role Status Dates Josy Elias , MERCHANDISING ASSISTANT-C Primary Care Provider Active Start: January 02, [...] Active Member Role Status Dates Josy Elias MERCHANDISING ASSISTANT-C Primary Care Provider Active Start: January 03, [...] Active Start : January 10, 2025 Dr. Adonis Masterson MD Other Provider Active Start: January [...] Active Start : January 10, 2025 Dr. Adonis Masterson MD Other Provider Active Start: January [...] Active St art: January 10, 2025 Dr. Anle Casey MD Other Provider Active Start: January [...] Active Member Role Status Dates Josy Elias MERCHANDISING ASSISTANT-C Primary Care Provider Active Start: January 14, [...] Active St art: January 18, 2025 Dr. Aelyda Bautista MD Other Provider Active Star t: [...] Active Start : January 19, 2025 Dr. Yartiza Leo DO Other Provider Active Start : [...] Active St art: August 30, 2024 Dr. Adonis Masterson MD Other Provider Active Start: August [...] Active St art: August 30, 2024 Dr. Adonis Masterson MD Other Provider Active Start: August [...] Active St art: August 30, 2024 Dr. Adonis Masterson MD Other Provider Active Start: August [...] Active St art: August 31, 2024 Dr. Adonis Masterson MD Other Provider Active Start: August [...] Active St art: August 31, 2024 Dr. Adonis Masterson MD Other Provider Active Start: August [...] Provider Active Start: September 01, 2024 Dr. Rcik Carlin DO Other Provider Active S tart: [...] Active Sta rt: September 06, 2024 Dr. Adonis Masterson MD Other Provider Active Start: September [...] Active Sta rt: September 06, 2024 Dr. Adonis Masterson MD Other Provider Active Start: September [...] Active Start: September 12, 2024 Dr. Anurag rIene MD Other Provider Active Sta rt: September [...] Other Provider Active Start: 2024 Jasmine Morocho MERCHANDISING ASSISTANT, MERCHANDISING ASSISTANT-C Attending Provider Active Start: September 29, 2024 Curbing Stonecutter Relationship Specialty Start Date End Date Maurice Rincon MD [address] [place] [address] PCP - General Internal Medicine 09/21/24 Team [...] Inactive Member Role Status Dates Josy Elias MERCHANDISING ASSISTANT-C Primary Care Provider Active Start: December 26, 2024 End: December 26, 2024 Dr. Boone Carvajal , Emergency Provider Active Start: December 26, 2024 End: December 26, 2024 Team Status: Inactive Member Role Status Dates Josy Elias MERCHANDISING ASSISTANT-C Primary Care Provider Active Start: December 30, 2024 End: December 30, 2024 Dr. Mina Blood , Emergency Provider Active Start: December 30, 2024 End: December 30, 2024 Team Status: Active Member Role Status Dates Josy Elias MERCHANDISING ASSISTANT-C Primary Care Provider Active Start: January 02, 2025 Dr. Roddy Reeves , Emergency Provider Active Start: January 02, 2025 Dr. Buster Fuchs MD Admit Provider Active Start: January 02, 2025 Dr. Buster Fuchs MD Attending Provider Active Start: January 02, 2025 Dr. Buster Fuchs MD Other Provider Active Start: January 02, 2025 Team Status: Active Member Role Status Dates Josy Elias MERCHANDISING ASSISTANT-C Primary Care Provider Active Start: January 09, [...] 2024 End: November 11, 2024 Yue Delgadillo MERCHANDISING ASSISTANT, MERCHANDISING ASSISTANT-C Other Provider Active St art: October 29, [...] Provider Active Start: October 29, 2024 Dr. Adonis Masterson MD Other Provider Active Start: October [...] Provider Active Start: October 30, 2024 Dr. Adonis Masterson MD Other Provider Active Start: October [...] Provider Active Start: October 30, 2024 Dr. Adonis Masterson MD Other Provider Active Start: October [...] Provider Active Start: October 31, 2024 Dr. Adonis Masterson MD Other Provider Active Start: October [...] Active Sta rt: October 31, 2024 Dr. tSella Mosher MD Other Provider Active Sta rt: [...] S tart: November 04, 2024 Dr. Hill Crao DO Admit Provider Active Start: November 04, [...] Active Start: November 07, 2024 Dr. Foster Racson MD Other Provider Active Start: November 07, [...] Sta rt: November 10, 2024 Yue Delgadillo MERCHANDISING ASSISTANT, MERCHANDISING ASSISTANT-C Other Provider Active St art: November 10, [...] Active Star t: December 02, 2024 Dr. Thia Thurston MD Other Provider Active Start: December 02, 2024 Team Status: Inactive Member Role/Relationship Status Dates YG ePna Primary Care Provider Active Start: December 07, 2024 End: December 07, 2024 Josy Tannhof , MERCHANDISING ASSISTANT-C Attending Provider Active Start: December 07, 2024 End: December 07, 2024 Team Status: Inactive Member Role/Relationship Status Dates Josy Elias , MERCHANDISING ASSISTANT-C Primary Care Provider Active Start: December 15, 2024 End: December 15, 2024 Josy Elias , MERCHANDISING ASSISTANT-C Attending Provider Active Start: December 15, 2024 End: December 15, 2024 Josy Curt , MERCHANDISING ASSISTANT-C Referring Provider Active Start: December 15, 2024 End: December 15, 2024 Team Status: Inactive Member Role/Relationship Status Dates Josydominique Baumannhof , MERCHANDISING ASSISTANT-C Primary Care Provider Active Start: December 26, 2024 End: December 26, 2024 Dr. Boone Carvajal DO Attending Provider Active Start: December 26, 2024 End: December 26, 2024 Dr. Boone Carvajal DO Emergency Provider Active Start: December 26, 2024 End: December 26, 2024 Team Status: Inactive Member Role/Relationship Status Dates Josydominique Elias , MERCHANDISING ASSISTANT-C Primary Care Provider Active Start: December 30, 2024 End: December 30, 2024 Dr. Mina Blood DO Attending Provider Active Start: December 30, 2024 End: December 30, 2024 Dr. Mina Blood DO Emergency Provider Active Start: December 30, 2024 End: December 30, 2024 Team Status: Inactive Member Role/Relationship Status Dates Josy Obrienf , MERCHANDISING ASSISTANT-C Primary Care Provider Active Start: January 02, [...] Status: Active Member Role/Relationship Status Dates Josy Curt , MERCHANDISING ASSISTANT-C Primary Care Provider Active Start: January 03, [...] Member Role/Relationship Status Dates Josy Elias , MERCHANDISING ASSISTANT-C Primary Care Provider Active Start: January 04, [...] Member Role/Relationship Status Dates Josy Elias , MERCHANDISING ASSISTANT-C Primary Care Provider Active Start: January 05, [...] Member Role/Relationship Status Dates Josy Elias , MERCHANDISING ASSISTANT-C Primary Care Provider Active Start: January 09, [...] Active Start : January 10, 2025 Dr. Adonis Masterson MD Other Provider Active Start: January [...] Active Start : January 10, 2025 Dr. Adonis Masterson MD Other Provider Active Start: January [...] Star t: January 10, 2025 Dr. Elver Manclila MD Other Provider Active St art: January [...] Active Member Role/Relationship Status Dates Josy Elias MERCHANDISING ASSISTANT-C Primary Care Provider Active Start: January 11, [...] Active Member Role/Relationship Status Dates Josy Elias MERCHANDISING ASSISTANT-C Primary Care Provider Active Start: January 12, 2025 Dr. Breann Mendez DO Emergency Provider Active S tart: January 12, 2025 Dr. Yaritza Leo DO Admit Provider Active Start : January 12, 2025 Dr. Yaritza Leo DO Other Provider Active Start : January 12, 2025 Dr. Cielo Tovar MD Attending Provider Active Start: January 12, 2025 Dr. Ceilo Toavr MD Other Provider Active St art: January 12, 2025 Dr. Jefferson Malave MD Other Provider Active St art: January 12, 2025 Team Status: Active Member Role/Relationship Status Dates Josy Elias MERCHANDISING ASSISTANT-C Primary Care Provider Active Start: January 13, [...] Active Member Role/Relationship Status Dates Josy Elias MERCHANDISING ASSISTANT-C Primary Care Provider Active Start: January 17, [...] Active Member Role/Relationship Status Dates Josy Elias MERCHANDISING ASSISTANT-C Primary Care Provider Active Start: January 19, [...] Attending Provider Active Start: February 16, 2025 Josy Elias NP-C Primary Care Provider Active Start: February 16, [...] 2024 End: November 11, 2024 Yue Delgadillo MERCHANDISING ASSISTANT, MERCHANDISING ASSISTANT-C Other Provider Active St art: October 29, [...] Member Role/Relationship Status Dates Josydominique Elias , MERCHANDISING ASSISTANT-C Primary Care Provider Active Start: December 07, 2024 End: December 07, 2024 Josydominique Elias , MERCHANDISING ASSISTANT-C Attending Provider Active Start: December 07, 2024 End: December 07, 2024 Team Status: Inactive Member Role/Relationship Status Dates Josydominique Baumannhof , MERCHANDISING ASSISTANT-C Primary Care Provider Active Start: December 15, 2024 End: December 15, 2024 Josydominique Elias , MERCHANDISING ASSISTANT-C Attending Provider Active Start: December 15, 2024 End: December 15, 2024 Josydominique Elias , MERCHANDISING ASSISTANT-C Referring Provider Active Start: December 15, 2024 End: December 15, 2024 Team Status: Inactive Member Role/Relationship Status Dates Josydominique Baumannhof , MERCHANDISING ASSISTANT-C Primary Care Provider Active Start: December 26, 2024 End: December 26, 2024 Dr. Boone Carvajal DO Attending Provider Active Start: December 26, 2024 End: December 26, 2024 Dr. Boone Carvajal DO Emergency Provider Active Start: December 26, 2024 End: December 26, 2024 Team Status: Inactive Member Role/Relationship Status Dates Josydominique Elias , MERCHANDISING ASSISTANT-C Primary Care Provider Active Start: December 30, 2024 End: December 30, 2024 Dr. Mina Blood DO Attending Provider Active Start: December 30, 2024 End: December 30, 2024 Dr. Mina Blood DO Emergency Provider Active Start: December 30, 2024 End: December 30, 2024 Team Status: Inactive Member Role/Relationship Status Dates Josydominique Baumannhof , MERCHANDISING ASSISTANT-C Primary Care Provider Active Start: January 02, [...] Status: Active Member Role/Relationship Status Dates Josydominique Baumannhoantoinette , MERCHANDISING ASSISTANT-C Primary Care Provider Active Start: January 03, [...] Active Member Role/Relationship Status Dates Josy Elias MERCHANDISING ASSISTANT-C Primary Care Provider Active Start: January 04, [...] Provider Active Start: January 05, 2025 Dr. Hlil Acuña MD Attending Provider Active Start: January 05, 2025 Dr. Hill Acuña MD Other Provider Active Star t: January 05, 2025 Team Status: Inactive Member Role/Relationship Status Dates Josy Elias MERCHANDISING ASSISTANT-C Primary Care Provider Active Start: January 09, [...] Team Status: Active Member Role/Relationship Status Dates Jsoy Elias NP-C Primary Care Provider Active Start: January 10, 2025 Dr. Breann Mendez DO Emergency Provider Active S tart: January 10, 2025 Dr. Yaritza Leo DO Admit Provider Active Start : January 10, 2025 Dr. Yaritza Leo DO Other Provider Active Start : January 10, 2025 Dr. Adonis Masterson MD Other Provider Active Start: January [...] Active Start : January 10, 2025 Dr. Adonis Masterson MD Other Provider Active Start: January [...] Active Member Role/Relationship Status Dates Josy Elias MERCHANDISING ASSISTANT-C Primary Care Provider Active Start: January 14, [...] Active Member Role/Relationship Status Dates Josy Elias MERCHANDISING ASSISTANT-C Primary Care Provider Active Start: January 16, [...] Active Start : January 18, 2025 Dr. Yaritaz Leo DO Other Provider [...] Member Role/Relationship Status Dates Josy Tannhof , MERCHANDISING ASSISTANT-C Primary Care Provider Active Start: January 19, [...] Active Member Role/Relationship Status Dates Josy Elias MERCHANDISING ASSISTANT-C Primary Care Provider Active Start: January 20, [...] Active Sta rt: January 20, 2025 Dr. Cieol Tovar MD Other Provider Active St art: [...] t: January 29, 2025 Dr. Yaritza Leo DO Attending Provider [...] Star t: January 30, 2025 Dr. Boone Jopperi , DO Other [...] Sta rt: February 17, 2025 Josy Elias MERCHANDISING ASSISTANT-C Primary Care Provider Active Start: February 17, 2025 Team Status: Inactive Member Role/Relationship Status Dates Josy Elias , MERCHANDISING ASSISTANT-C Primary Care Provider Active Start: February 24, 2025 End: February 25, 2025 Julita Glover Attending Provider Active Sta rt: February 24, 2025 End: February 25, 2025 Josy Elias MERCHANDISING ASSISTANT-C Referring Provider Active Start: February 24, 2025 End: February 25, 2025 Josy Elias MERCHANDISING ASSISTANT-C Other Provider Active Star t: February 24, 2025 End: February 25, 2025 Team Status: Active Member Role/Relationship Status Dates Josy Elias MERCHANDISING ASSISTANT-C Primary Care Provider Active Start: February 25, 2025 Dr. Herberth Carlson MD Emergency Provider Active Start: February 25, 2025 Dr. Kathie Powers MD Attending Provider Active Start: February 25, 2025 Team Status: Inactive Member Role/Relationship Status Dates Josy Elias MERCHANDISING ASSISTANT-C Primary Care Provider Active Start: February 25, [...] Member Role/Relationship Status Dates Josy Elias , MERCHANDISING ASSISTANT-C Primary Care Provider Active Start: February 25, [...] Member Role/Relationship Status Dates Josy Elias , MERCHANDISING ASSISTANT-C Primary Care Provider Active Start: February 26, [...] Member Role/Relationship Status Dates Josy Elias , MERCHANDISING ASSISTANT-C Primary Care Provider Active Start: February 27, [...] Member Role/Relationship Status Dates Josy Elias , MERCHANDISING ASSISTANT-C Primary Care Provider Active Start: March 04, 2025 MINDY CONTRERAS Attending Provider Active Start: [facility] 2024 MINDY CONTRERAS Referring Provider Active Start: [facility] 2024 Team Status: Inactive Member Role/Relationship Status Dates Josy Elias , MERCHANDISING ASSISTANT-C Primary Care Provider Active Start: March 10, 2025 End: March 10, 2025 Josy Elias MERCHANDISING ASSISTANT-C Referring Provider Active Start: March 10, 2025 End: March 10, 2025 Dr. Roby Balderas MD Attending Provider Active Start: March 10, 2025 End: March 10, 2025 Team Status: Inactive Member Role/Relationship Status Dates Josy Elias , MERCHANDISING ASSISTANT-C Primary Care Provider Active Start: March 11, 2025 End: March 11, 2025 Dr. Alber Dunn MD Emergency Provider Active S tart: March 11, 2025 End: March 11, 2025 Team Status: Inactive Member Role/Relationship Status Dates Josy Elias , MERCHANDISING ASSISTANT-C Primary Care Provider Active Start: December 15, 2024 End: December 15, 2024 Josydominique Elias , MERCHANDISING ASSISTANT-C Attending Provider Active Start: December 15, 2024 End: December 15, 2024 Josy Elias , MERCHANDISING ASSISTANT-C Referring Provider Active Start: December 15, 2024 End: December 15, 2024 Team Status: Inactive Member Role/Relationship Status Dates Josydominique Elias , MERCHANDISING ASSISTANT-C Primary Care Provider Active Start: December 26, 2024 End: December 26, 2024 Dr. Boone Carvajal DO Attending Provider Active Start: December 26, 2024 End: December 26, 2024 Dr. Boone Carvajal DO Emergency Provider Active Start: December 26, 2024 End: December 26, 2024 Team Status: Inactive Member Role/Relationship Status Dates Josy Elias , MERCHANDISING ASSISTANT-C Primary Care Provider Active Start: December 30, 2024 End: December 30, 2024 Dr. Mina Blood DO Attending Provider Active Start: December 30, 2024 End: December 30, 2024 Dr. Mina Blood DO Emergency Provider Active Start: December 30, 2024 End: December 30, 2024 Team Status: Inactive Member Role/Relationship Status Dates Josy Elias , MERCHANDISING ASSISTANT-C Primary Care Provider Active Start: January 02, [...] Member Role/Relationship Status Dates Josy Elias , MERCHANDISING ASSISTANT-C Primary Care Provider Active Start: January 03, [...] Team Status: Active Member Role/Relationship Status Dates Jsoy Elias , MERCHANDISING ASSISTANT-C Primary Care Provider Active Start: January 04, 2025 Dr. Roddy Reeves DO Emergency Provider Active Start: January 04, 2025 Dr. Buster Fuchs MD Admit Provider Active Start: January 04, 2025 Dr. Buster Fuchs MD Other Provider Active Start: January 04, 2025 Dr. iHll Acuña MD Attending Provider Active Start: January 04, 2025 Dr. Hill Acuña MD Other Provider Active Star t: January 04, 2025 Team Status: Active Member Role/Relationship Status Dates Josy Elias , MERCHANDISING ASSISTANT-C Primary Care Provider Active Start: January 05, [...] Member Role/Relationship Status Dates Josy Elias , MERCHANDISING ASSISTANT-C Primary Care Provider Active Start: January 09, [...] Active Start : January 10, 2025 Dr. Adonis Masterson MD Other Provider Active Start: January [...] Active Start : January 10, 2025 Dr. Adonis Masterson MD Other Provider Active Start: January [...] Active Member Role/Relationship Status Dates Josy Elias MERCHANDISING ASSISTANT-C Primary Care Provider Active Start: January 11, [...] Active Member Role/Relationship Status Dates Josy Elias MERCHANDISING ASSISTANT-C Primary Care Provider Active Start: January 12, [...] Active Member Role/Relationship Status Dates Josy Elias MERCHANDISING ASSISTANT-C Primary Care Provider Active Start: January 13, [...] Active S tart: January 14, 2025 Dr. Yraitza Leo , DO Admit Provider Active Start [...] Active Member Role/Relationship Status Dates Josy Elias MERCHANDISING ASSISTANT-C Primary Care Provider Active Start: January 17, 2025 Dr. Breann Mendez DO Emergency Provider Active S tart: January 17, 2025 Dr. Yaritza Leo DO Admit Provider Active Start : January 17, 2025 Dr. Yaritza Leo DO Other Provider Active Start : January 17, 2025 Dr. Jefferson Malave MD Other Provider Active St art: January 17, 2025 Dr. Aleyad Bautista MD Other Provider Active Star t: January 17, 2025 Dr. Anurag Irene MD Attending Provider Active Start: January 17, 2025 Dr. Anurag Irene MD Other Provider Active Sta rt: January 17, 2025 Dr. Cielo Tovar MD Other Provider Active St art: January 17, 2025 Team Status: Active Member Role/Relationship Status Dates Josy Elias MERCHANDISING ASSISTANT-C Primary Care Provider Active Start: January 18, [...] Active Member Role/Relationship Status Dates Josy Elias MERCHANDISING ASSISTANT-C Primary Care Provider Active Start: January 19, 2025 Dr. Breann Mendez DO Emergency Provider Active S tart: January 19, 2025 Dr. Yaritza Ahmet , DO Admit Provider Active Start : [...] January 28, 2025 Dr. Boone Izquierdo , Attending Provider Active Start: January 28, 2025 [...] 13, 2025 Dr. Luis Carlos Anderson , Attending Provider Active Start: February 13, 2025 [...] Sta rt: February 17, 2025 Josy Elias MERCHANDISING ASSISTANT-C Primary Care Provider Active Start: February 17, 2025 Team Status: Inactive Member Role/Relationship Status Dates Josy Elias MERCHANDISING ASSISTANT-C Primary Care Provider Active Start: February 24, 2025 End: February 25, 2025 Julita Glover Attending Provider Active Sta rt: February 24, 2025 End: February 25, 2025 Josy Elias MERCHANDISING ASSISTANT-C Referring Provider Active Start: February 24, 2025 End: February 25, 2025 Josy Elias NP-C Other Provider Active Star t: February 24, 2025 End: February 25, 2025 Team Status: Active Member Role/Relationship Status Dates Josy Elias MERCHANDISING ASSISTANT-C Primary Care Provider Active Start: February 25, 2025 Dr. Herberth Carlson MD Emergency Provider Active Start: February 25, 2025 Dr. Kathie Powers MD Attending Provider Active Start: February 25, 2025 Team Status: Inactive Member Role/Relationship Status Dates Josy Elias MERCHANDISING ASSISTANT-C Primary Care Provider Active Start: February 25, [...] Active Member Role/Relationship Status Dates Josy Elias MERCHANDISING ASSISTANT-C Primary Care Provider Active Start: February 25, [...] Member Role/Relationship Status Dates Josy Elias , MERCHANDISING ASSISTANT-C Primary Care Provider Active Start: February 26, [...] Member Role/Relationship Status Dates Josydominique Elias , MERCHANDISING ASSISTANT-C Primary Care Provider Active Start: February 27, [...] Member Role/Relationship Status Dates Josydominique Elias , MERCHANDISING ASSISTANT-C Primary Care Provider Active Start: March 04, 2025 End: March 04, 2025 MINDY CONTRERAS Attending Provider Active Start: 2024 End: March 04, 2025 MINDY CONTRERAS Referring Provider Active Start: [facility] 2024 End: March 04, 2025 Team Status: Inactive Member Role/Relationship Status Dates Josydominique Elias , MERCHANDISING ASSISTANT-C Primary Care Provider Active Start: March 10, 2025 End: March 10, 2025 Josy Elias , MERCHANDISING ASSISTANT-C Referring Provider Active Start: March 10, 2025 End: March 10, 2025 Dr. Roby Balderas MD Attending Provider Active Start: March 10, 2025 End: March 10, 2025 Team Status: Inactive Member Role/Relationship Status Dates Josydominique Elias , MERCHANDISING ASSISTANT-C Primary Care Provider Active Start: March 11, 2025 End: March 11, 2025 Dr. Alber Dunn MD Attending Provider Active S tart: March 11, 2025 End: March 11, 2025 Dr. Alber Dunn MD Emergency Provider Active S tart: March 11, 2025 End: March 11, 2025 Team Status: Inactive Member Role/Relationship Status Dates Josy Elias , MERCHANDISING ASSISTANT-C Primary Care Provider Active Start: March 30, 2025 End: March 30, 2025 Dr. Roby Balderas MD Attending Provider Active Start: March 30, 2025 End: March 30, 2025 Dr. Roby Balderas MD Referring Provider Active Start: March 30, 2025 End: March 30, 2025 Team Status: Active Member Role/Relationship Status Dates Josy Elias MERCHANDISING ASSISTANT-C Primary Care Provider Active Start: March 30, 2025 Dr. Roby Balderas MD Attending Provider Active Start: March 30, 2025 Dr. Roby Balderas MD Referring Provider Active Start: March 30, 2025 Dr. Roby Balderas MD Other Provider Active Start: March 30, 2025 Team Status: Inactive Member Role/Relationship Status Dates Josy Elias , MERCHANDISING ASSISTANT-C Primary Care Provider Active Start: April 03, 2025 End: April 03, 2025 Dr. Jose Fox MD Emergency Provider Active Sta rt: April 03, 2025 End: April 03, 2025 Team Status: Active Member Role/Relationship Status Dates Josy Elias , MERCHANDISING ASSISTANT-C Primary Care Provider Active Start: April 07, 2025 Dr. Rachel Joiner DO Emergency Provider Active Start: April 07, 2025 Dr. Maria Guadalupe Shore MD Attending Provider Active Start: April 07, 2025 Team Status: Active Member Role/Relationship Status Dates Josy Elias , MERCHANDISING ASSISTANT-C Primary Care Provider Active Start: April 07, 2025 Dr. Rachel Joiner DO Emergency Provider Active Start: April 07, 2025 Dr. Maria Guadalupe Shore MD Admit Provider Active St art: April 07, 2025 Dr. Maria Guadalupe Shore MD Attending Provider Active Start: April 07, 2025 Team Status: Inactive Member Role/Relationship Status Dates Josy Elias , MERCHANDISING ASSISTANT-C Primary Care Provider Active Start: April 07, 2025 End: April 10, 2025 Dr. Rachel Joiner DO Emergency Provider Active Start: April 07, 2025 End: April 10, 2025 Dr. Maria Guadalupe Shore MD Admit Provider Active St art: April 07, 2025 End: April 10, 2025 Dr. Maria Guadalupe Shore MD Other Provider Active St art: April 07, 2025 End: April 10, 2025 Dr. Anurag Irene MD Attending Provider Active Start: April 07, 2025 End: April 10, 2025 Dr. Rick Carlin DO Other Provider Active S tart: April 07, 2025 End: April 10, 2025 Team Status: Active Member Role/Relationship Status Dates Josy Elias NP-C Primary Care Provider Active Start: April 08, 2025 Dr. Rachel Joiner DO Emergency Provider Active Start: April 08, 2025 Dr. Maria Guadalupe Shore MD Admit Provider Active St art: April 08, 2025 Dr. Maria Guadalupe Shore MD Attending Provider Active Start: April 08, 2025 Dr. Maria Guadalupe Shore MD Other Provider Active St art: April 08, 2025 Team Status: Active Member Role/Relationship Status Dates Josy Elias NP-C Primary Care Provider Active Start: April 09, 2025 Dr. Rachel Joiner DO Emergency Provider Active Start: April 09, 2025 Dr. Maria Guadalupe Shore MD Admit Provider Active St art: April 09, 2025 Dr. Maria Guadalupe Shore MD Other Provider Active St art: April 09, 2025 Dr. Anurag Irene MD Attending Provider Active Start: April 09, 2025 Dr. Anurag Irene MD Other Provider Active Sta rt: April 09, 2025 Dr. Rick Carlin DO Other Provider Active S tart: April 09, 2025 Team Status: Active Member Role/Relationship Status Dates Josy Elias NP-C Primary Care Provider Active Start: April 10, 2025 Dr. Rachel Joiner DO Emergency Provider Active Start: April 10, 2025 Dr. Maria Guadalupe Shore MD Admit Provider Active St art: April 10, 2025 Dr. Maria Guadalupe Shore MD Other Provider Active St art: April 10, 2025 Dr. Anurag Irene MD Attending Provider Active Start: April 10, 2025 Dr. Anurag Irene MD Other Provider Active Sta rt: April 10, 2025 Dr. Rick Tereletsky , DO Other Provider Active S tart: April 10, 2025 (unrecognized sect ion and content) No Status Records FoundNo Status Records FoundNo Status Records FoundNo Status Records Found INFORMATION SOURCE (unrecogn ized section and content) DATE CREATED AUTHOR 10/10/[address] [facility] DATE CREATED AUTHOR AUTHOR'S ORGANIZ ATION 12/13/2024 [facility] DATE CREATED AUTHOR AUTHOR'S ORGANIZ ATION 02/18/2025 [facility] DATE CREATED AUTHOR AUTHOR'S ORGANIZ ATION 04/16/2025 [facility] Source Comments (unrecognize d section and content) In the event this informatio n is protected by the Federal Confidentiality of Alcohol and Drug Abuse Patient Records regulations: The Federal rules restrict any use of the information to criminally investigate or prosecute any alcohol or drug abuse patient.[facility] the event this information is protected by the Federal Confidentiality of Alcohol and Drug Abuse Patient Records regulations: The Federal rules restrict any use of the information to criminally investigate or prosecute any alcohol or drug abuse patient.[facility] the event this information is protected by the Federal Confidentiality of Alcohol and Drug Abuse Patient Records regulations: The Federal rules restrict any use of the information to criminally investigate or prosecute any alcohol or drug abuse patient.[facility] the event this information is protected by the Federal Confidentiality of Alcohol and Drug Abuse Patient Records regulations: The Federal rules restrict any use of the information to criminally investigate or prosecute any alcohol or drug abuse patient.[facility] the event this information is protected by the Federal Confidentiality of Alcohol and Drug Abuse Patient Records regulations: The Federal rules restrict any use of the information to criminally investigate or prosecute any alcohol or drug abuse patient.[facility] the event this information is protected by the Federal Confidentiality of Alcohol and Drug Abuse Patient Records regulations: The Federal rules restrict any use of the information to criminally investigate or prosecute any alcohol or drug abuse patient.[facility] Hospital[facility] the event this information is protected by the Federal Confidentiality of Alcohol and Drug Abuse Patient Records regulations: The Federal rules restrict any use of the information to criminally investigate or prosecute any alcohol or drug abuse patient.[facility] Hospital[facility] the event this information is protected by the Federal Confidentiality of Alcohol and Drug Abuse Patient Records regulations: The Federal rules restrict any use of the information to criminally investigate or prosecute any alcohol or drug abuse patient.[facility] Hospital[facility] the event this information is protected by the Federal Confidentiality of Alcohol and Drug Abuse Patient Records regulations: The Federal rules restrict any use of the information to criminally investigate or prosecute any alcohol or drug abuse patient.[facility] Hospital[facility] the event this information is protected by the Federal Confidentiality of Alcohol and Drug Abuse Patient Records regulations: The Federal rules restrict any use of the information to criminally investigate or prosecute any alcohol or drug abuse patient.[facility] the event this information is protected by the Federal Confidentiality of Alcohol and Drug Abuse Patient Records regulations: The Federal rules restrict any use of the information to criminally investigate or prosecute any alcohol or drug abuse patient.[facility] FOR RECORDS PERTAINING TO PATIENTS WHO [...] BE BASED ON THE PRIMARY CLINICAL RECORDS. [facility]. provides no warranty or guarantee of the accuracy or completeness of information in this document.
[2025-04-19 02:16] VITALS: BP 114/67; PULSE 98; RESP 18; TEMP 36.6; O2SAT 98
[2025-04-19 04:12] LABS: Hematocrit 22.2 % (40-54); Hemoglobin 7.3 g/dL (13.0-16.5); Immature Granulocytes Count 0.020 X10^3/uL (0.0-0.0); Mean Corp Hgb Conc 32.9 g/dL (32-36); Mean Corpuscular Volume 90.6 fL (80-94); Mean Platelet Vol. 10.7 fl (6.2-12.0); NRBC Flagged by Analyzer 0 % (0-5); POSITIVE COUNT YES; Platelet Count 85 K/mm3 (150-450); RBC Distribution Width CV 16.0 % (11.6-14.6); RBC Distribution Width SD 52.3 fl (35.1-43.9); Red Blood Count 2.45 M/mm3 (4.6-6.2); White Blood Count 5.1 K/mm3 (4.4-11.0)
[2025-04-19 04:42] LABS: AST(SGOT) 30 U/L (<=37); Alanine Aminotransfer ALT/SGPT 17 U/L (<=46); Albumin, Serum 2.5 g/dL (3.5-5.0); Alkaline Phosphatase 107 U/L (40-129); Anion Gap 9 (5-15); BUN 14 mg/dL (4-19); BUN/Creat Ratio 15.4 RATIO (10-20); Calcium,Total 8.5 mg/dL (7.6-11.0); Carbon Dioxide 15.7 mmol/L (21.0-32.0); Chloride 110 mmol/L (98-108); Estimated Creatinine Clearance 99.60 ml/min (50-250); Globulin 2.5 g/dL (2.2-4.2); Glucose 167 mg/dL (70-99); Potassium 4.4 mmol/L (3.3-5.1)
[2025-04-19 04:46] LABS: Differential Indicated SCAN CRITERIA MET
[2025-04-19 05:10] LABS: Magnesium 1.5 mg/dL (1.5-2.2)
[2025-04-19 05:40] VITALS: BMI 31.0
[2025-04-19 05:45] LABS: Prothrombin Time (Protime)PT. 26.2 SECONDS (11.7-14.9)
--- NOTE | 2025-04-19 07:00 | US_ITS ---
PROCEDURE: ABDOMEN LIMITED 04/19/2025 REASON FOR EXAM: PAIN, CONFUSION, CIRRHOSIS TECHNIQUE: Procedure Code: USABDL Modality: US Procedure: ABDOMEN LIMITED. Patient was scheduled for paracentesis. 4 quadrant analysis was performed. Not enough fluid for safe paracentesis. COMPARISON: Prior study dated March 04, 2025. FINDINGS: Not enough fluid for safe paracentesis. US/Abdomen Limited IMPRESSION: Not enough fluid for safe paracentesis. Reading Location: [facility]
--- NOTE | 2025-04-19 07:18 | PN.HOSP_ITS ---
Reason for Visit Chief Complaint: AMS, abdominal pain Objective Data Objective Data Vital Signs: Vital Signs Temp Pulse Resp BP Pulse Ox O2 Del Method 97.8 F 98 18 114/67 98 Room Air 04/19/25 02:16 04/19/25 02:16 04/19/25 02:16 04/19/25 02:16 04/19/25 02:04/19/25 05:39 Oxygen Delivery Method Room Air Weight: 209 lb 10.554 oz Body Mass Index (BMI) 31.0 Intake & Output: Intake and Output for Last 24 Hours 04/17/25 04/18/25 04/19/25 23:59 23:59 23:59 Intake Total 550 / 550 500 / 500 Output Total 600 / 600 Balance -50 / -50 500 / 500 Lab / Micro Data 04/19/25 09:30 04/19/25 03:57 Labs: Laboratory Results - last 24 hr 04/18/25 15:07: POC Glucose 64 L 04/18/25 15:25: WBC 8.7, RBC 3.39 L, Hgb 10.2 L, Hct 30.5 L, MCV 90.0, MCH 30.1, MCHC 33.4, RDW Std Deviation 53.2 H, RDW Coeff of Francis 16.3 H, Plt Count 174, MPV 10.2, Immature Gran % (Auto) 0.600, Neut % (Auto) 77.1 H, Lymph % (Auto) 12.1 L, [place] % (Auto) 8.3, Eos % (Auto) 1.4, Baso % (Auto) 0.5, Absolute Neuts (auto) 6.7, Absolute Lymphs (auto) 1.05, Nucleated RBC % 0, PT 20.9 H, INR 1.8, APTT 41.6 H, Sodium 135, Potassium 4.5, Chloride 110 H, Carbon Dioxide 17.2 L, Anion Gap 8, BUN 12, Creatinine 0.97, Estim Creat Clear Calc 93.48, Est GFR (MDRD) Non-Af 90, BUN/Creatinine Ratio 12.3, Glucose 83, Lactic Acid 1.9, Calcium 8.4, Total Bilirubin 1.85 H, Direct Bilirubin 1.15 H, AST 46 H, ALT 27, Alkaline Phosphatase 154 H, Ammonia 97.2 H, Troponin T High Sens 11 D, Total Protein 6.3, Albumin 2.6 L, Globulin 3.8 04/18/25 16:47: POC Glucose 108 H 04/18/25 16:55: Urine Color Rocio, Urine Clarity Turbid, Urine pH 7.0, Ur Specific [place] 1.010, Urine Protein 100 H, Urine Glucose (UA) Normal, Urine Ketones Negative, Urine Occult Blood 250 H, Urine Nitrite Negative, Urine Bilirubin Negative, Urine Urobilinogen Normal, Ur Leukocyte Esterase 500 H, Urine RBC 50-100 SEEN, Urine WBC 25-50 SEEN, Ur Squamous Epith Cells 0-5 SEEN, Urine Bacteria 1+, Urine Mucus 0 SEEN 04/18/25 17:40: Troponin T Hi Sens 2 Hr 12 04/18/25 19:53: POC Glucose 134 H 04/18/25 19:58: Troponin T Hi Sens 4Hr 13 04/18/25 22:11: POC Glucose 206 H 04/19/25 03:57: WBC 5.1, RBC 2.45 L, Hgb 7.3 L, Hct 22.2 L, MCV 90.6, MCH 29.8, MCHC 32.9, RDW Std Deviation 52.3 H, RDW Coeff of Francis 16.0 H, Plt Count 85 L, MPV 10.7, Immature Gran % (Auto) 0.400, Neut % (Auto) 65.9, Lymph % (Auto) 18.3 L, [place] % (Auto) 12.6 H, Eos % (Auto) 2.6, Baso % (Auto) 0.2, Absolute Neuts (auto) 3.4, Absolute Lymphs (auto) 0.93, Nucleated RBC % 0, Platelet Estimate SLT DEC, PT 26.2 H, INR 2.3, Sodium 135, Potassium 4.4, Chloride 110 H, Carbon Dioxide 15.7 L, Anion Gap 9, BUN 14, Creatinine 0.92, Estim Creat Clear Calc 99.60, Est GFR (MDRD) Non-Af 97, BUN/Creatinine Ratio 15.4, Glucose 167 H, H emoglobin A1c 5.9 H, Calcium 8.5, Phosphorus 3.5, Magnesium 1.5, Total Bilirubin 1.42 H, AST 30, ALT 17, Alkaline Phosphatase 107, Total Protein 5.0 L, Albumin 2.5 L, Globulin 2.5, Albumin/Globulin Ratio 1.0 04/19/25 06:37: POC Glucose 187 H Radiography Diagnostic Testing: Radiology Impression Brain CT 04/18/25 15:10 IMPRESSION: No acute intracranial abnormalities. Reading Location: [facility] Chest X-Ray 04/18/25 15:45 IMPRESSION: Bibasilar atelectasis with mild pulmonary congestion. No acute cardiopulmonary abnormality. Reading Location: [id number] Abdomen/Pelvis CT 04/18/25 17:34 IMPRESSION: Findings consistent with cirrhosis and small amount of ascites in the pelvis. Cholelithiasis. Stable left kidney staghorn stones with double-J catheter in place. No hydronephrosis. Reading Location: [facility] Rhythm Strip Rhythm Strip: Sinus Rhythm Rate: 80 Ectopy: None Physical Exam Narrative Physical exam: General: Alert, Oriented x3, Cooperative, has hard to recall HEENT: Atraumatic, PERRLA, EOMI, Normocephalic. Oral: Oral mucosa moist. No Gingival or Mucosal Lesions/ Ulcerations Neck: Supple, No JVD, Negative Carotid Bruits Chest wall/Lungs: Air entry diminished in bilateral lung bases. No crepitation/rhonchi Cardiovascular: Regular rate and rhythm, Normal S1,S2, No M/G/R Abdomen: Bowel Sounds Present, Soft, mild nonspecific tenderness present. mild ascites present. : No dysuria. Microscopic hematuria. No renal angle tenderness. No suprapubic tenderness. Extremities: No edema, Capillary Refill Less than 3 Seconds Skin: Bruises present on left upper arm and abdomen. Musculoskeletal: No Tenderness to Palpation of Joints or Extremities. Mild muscle atrophy of extremities Neurological: Cranial nerves II-XII grossly intact, DTR 2+/4. No acute focal neurological deficit. Psych/Mental Status: flat affect, forgetful Assessment & Plan Assessment/Plan (1) Abdominal pain: (2) Urinary tract infection: PLAN: Plan This 59-year-old gentleman was admitted with altered mental status, hypoglycemia, blood sugar was 36 mg/dL. Patient also complained of abdominal pain for last couple days. # Abdominal pain with concern for SBP: Patient is being admitted self-referral. On exam there is nonspecific tenderness. Diagnostic paracentesis is ordered. Patient on IV ceftriaxone. Patient got 2 doses of 25% IV albumin. # Acute encephalopathy with decompensated MASLD cirrhosis with portosystemic anastomosis, esophageal varices: Possible differential is hypoglycemia/hepatic encephalopathy. Patient has been admitted multiple times for this. Patient on furosemide, spironolactone and carvedilol. Couple weeks ago, the patient was in hospice care and requested PleurX catheter in the abdomen for ascites drainage. Ultrasound-guided tunneled catheter was inserted on 03/30. But patient got admitted on 04/07 after hospice revoked. 04/19: Cause suspected multifactorial. There is a mild improvement in mental status after correction of hypoglycemia. Continue lactulose 15 mL 2-3 times weekly on goal of 2-3 soft bowel movement per day #Abnormal UA with mild microscopic hematuria, pyuria and bacteriuria, UTI ruled out: UA reported WBC 25-50 cells, RBC 5200 cells, LE 500 squamous epithelium 0-5 cells, 1+ bacteria. Nitrite negative. Patient previous UA also showed microscopic hematuria 5O-[address] abdomen shows left kidney staghorn stone stable. Left-sided double-J stent catheter in place. urine culture exhibits no growth. Blood culture pending. # History of portal vein thrombosis -Was previously on Lovenox however seems that this was discontinued due to anemia, he did not tolerate full dose anticoagulation. Current H&H 7.7/23.2%. #Type 2 diabetes mellitus: - Patient with hypoglycemia, will need to decrease home insulin. Titrate insulin dosage as per glucose monitoring. #DVT ppx: SCDs Charges/Coding Visit Charges Inpatient E&M: 50306 Subs Hosp L2
[2025-04-19 08:15] VITALS: BP 115/58; PULSE 86; RESP 18; TEMP 36.9; O2SAT 98
[2025-04-19] MEDS: Ceftriaxone 2 GM in 0.9% Normal Saline (50mL MB+) 50 ML IV (09:33)
[2025-04-19] MEDS: 0.9% Saline Lock 10 ML Syringe IV (09:33)
[2025-04-19] MEDS: Glucerna Shake 120 ML LIQUID PO (09:39)
[2025-04-19 09:51] LABS: Hematocrit 23.2 % (40-54); Hemoglobin 7.7 g/dL (13.0-16.5); Immature Granulocytes Count 0.020 X10^3/uL (0.0-0.0); Mean Corp Hgb Conc 33.2 g/dL (32-36); Mean Corpuscular Volume 91.0 fL (80-94); Mean Platelet Vol. 10.7 fl (6.2-12.0); NRBC Flagged by Analyzer 0 % (0-5); POSITIVE COUNT YES; Platelet Count 91 K/mm3 (150-450); RBC Distribution Width CV 16.0 % (11.6-14.6); RBC Distribution Width SD 52.8 fl (35.1-43.9); Red Blood Count 2.55 M/mm3 (4.6-6.2); White Blood Count 5.8 K/mm3 (4.4-11.0)
[2025-04-19 09:58] LABS: Differential Indicated SCAN CRITERIA MET
[2025-04-19 10:41] LABS: Prothrombin Time (Protime)PT. 24.4 SECONDS (11.7-14.9)
[2025-04-19 10:42] LABS: Partial Thromboplast Time 44.5 Seconds (24.1-36.2)
--- NOTE | 2025-04-19 11:08 | CASEMGMT ---
DAYSI HUGHES Readmission Note Previous Admission:04/07/25-04/10/25 Diagnosis: hepatic encephalopathy DC Disposition: Home with unsuccessfule attempts to set up HHC. Current Admission: Admitted 04/18/25 Current Diagnosis: Concern for SBP Pt admitted with concern for SBP after pt found with low blood sugar and abd pain. Pt with previous stay for hepatic encephalopathy. Pt had been on hospice and revoked to come to the hospital. Pt had decided he did not want to continue with hospice post hospitalization. Pt was interested in HHC but SW was unable to find an agency to accept pt. Pt is A&Ox3. Pt states he has been taking his meds as ordered at home. Pt states that he did not have any follow up appts scheduled as of yet. Pt reports he lives with his ex as well as two other friends who all care for him. He states he has been using his walker and the BSC at home. Pt states ex manages his DM as far as checks his blood sugars and gives insulin. He states he became confused at home. Pt plans to return home. He is not interested in hospice still. He states he did not see the benefit of this. He has recently obtained a w/c and pt feels safe at home. Pt denies any need for any assistance at home including HHC. Pt to be eval'd by therapy and is aware DAYSI HUGHES will follow for this. Pt denies any needs at this time. DC Plan: Home pending therapy evals.
[2025-04-19 11:20] LABS: Fibrinogen 156 mg/dl (203-444)
[2025-04-19 15:30] VITALS: BP 115/59; PULSE 83; RESP 18; TEMP 37.1; O2SAT 100
[2025-04-19 15:34] VITALS: BP 115/59; PULSE 83; RESP 18; TEMP 37.1; O2SAT 100
--- NOTE | 2025-04-19 16:19 | CASEMGMT ---
Social Work- SW met with pt to verify advanced directives. Pt reports that he believes documents were completed by hospice. SW called hospice who reports that they do not have any directives. SW updated pt; pt wants back in bed and declines further discussion. SW to follow up tomorrow. JANETTE Valladares
[2025-04-19 20:24] VITALS: BP 114/68; PULSE 79; RESP 16; TEMP 37.2; O2SAT 97
[2025-04-19] MEDS: Insulin Glargine-YFGN 100 UNIT/ML Pen 15 UNIT SC (20:37)
[2025-04-20 00:29] VITALS: BP 121/74; PULSE 89; RESP 16; TEMP 37.3; O2SAT 99
[2025-04-20] MEDS: MELATONIN 10 MG TABLET PO (00:32)
[2025-04-20 05:13] LABS: Hematocrit 23.0 % (40-54); Hemoglobin 7.6 g/dL (13.0-16.5); Immature Granulocytes Count 0.020 X10^3/uL (0.0-0.0); Mean Corp Hgb Conc 33.0 g/dL (32-36); Mean Corpuscular Volume 90.6 fL (80-94); Mean Platelet Vol. 11.3 fl (6.2-12.0); NRBC Flagged by Analyzer 0 % (0-5); POSITIVE COUNT YES; Platelet Count 88 K/mm3 (150-450); RBC Distribution Width CV 16.0 % (11.6-14.6); RBC Distribution Width SD 53.1 fl (35.1-43.9); Red Blood Count 2.54 M/mm3 (4.6-6.2); White Blood Count 5.2 K/mm3 (4.4-11.0)
[2025-04-20 05:38] VITALS: BMI 31.2
[2025-04-20 05:54] LABS: AST(SGOT) 32 U/L (<=37); Alanine Aminotransfer ALT/SGPT 19 U/L (<=46); Albumin, Serum 2.5 g/dL (3.5-5.0); Alkaline Phosphatase 108 U/L (40-129); Anion Gap 9 (5-15); BUN 12 mg/dL (4-19); BUN/Creat Ratio 11.3 RATIO (10-20); Calcium,Total 8.3 mg/dL (7.6-11.0); Carbon Dioxide 17.3 mmol/L (21.0-32.0); Chloride 109 mmol/L (98-108); Estimated Creatinine Clearance 87.58 ml/min (50-250); Globulin 2.6 g/dL (2.2-4.2); Glucose 141 mg/dL (70-99); Potassium 4.1 mmol/L (3.3-5.1)
[2025-04-20 06:11] VITALS: BP 114/60; PULSE 83; RESP 16; TEMP 37.2; O2SAT 99
[2025-04-20 08:53] VITALS: PULSE 80
[2025-04-20 08:59] VITALS: BP 110/70; PULSE 76; RESP 20; TEMP 36.7; O2SAT 98
[2025-04-20] MEDS: Ceftriaxone 2 GM in 0.9% Normal Saline (50mL MB+) 50 ML IV (09:05)
[2025-04-20] MEDS: 0.9% Saline Lock 10 ML Syringe IV ×2 (09:06→10:27)
--- NOTE | 2025-04-20 10:56 | DCINST_ITS ---
Discharge Instructions DC O2, CPAP, BIPAP needs Home O2 Discharge instructions: No Follow Up Care Test Results: Test results from this visit will be discussed in further detail at your follow- up appointment, if applicable. Discharge Plan Admission Admit Date/Time: 04/18/25 19:24 Attending Provider: Anurag Irene Primary Care Provider: Josy Elias Consulting Providers: Kathie Powers; Foster Rascon Discharge Orders/Prescriptions Prescriptions: Continued cyclobenzaprine 10 mg tablet 10 mg PO QHS (DME) pen needle, diabetic [Pen Needle] 31 gauge x 5/16 needle See Rx Instructions .Route Qty: 1200 0RF Rx Instructions: As directed acetaminophen 500 mg Tablet 1,000 mg PO Q8 PRN (Reason: fever or pain) insulin glargine-yfgn 100 unit/mL (3 mL) Insulin Pen 30 unit subcut QHS metformin 500 mg tablet 500 mg PO QHS sodium bicarbonate 650 mg tablet 650 mg PO BID oxycodone 5 mg tablet 5 mg PO TID PRN PRN (Reason: dyspnea) insulin lispro [Humalog KwikPen Insulin] 100 unit/mL Insulin Pen 20 unit subcut TIDAC furosemide 40 mg Tablet 40 mg PO DAILY 30 Days Qty: 30 2RF ferrous sulfate 325 mg (65 mg iron) tablet 325 mg PO QODAY Qty: 30 2RF ascorbic acid (vitamin C) 500 mg tablet 500 mg PO BID Qty: 60 2RF spironolactone 100 mg tablet 150 mg PO DAILY 30 Days Qty: 45 3RF Rx Instructions: Hold for serum potassium more than 5.0. carvedilol 3.125 mg tablet 6.25 mg PO BID 30 Days Qty: 60 2RF Rx Instructions: must administer with a meal/food lactulose 10 gram/15 mL Solution 10 g PO 4XD 30 Days Qty: 1 0RF Patient Comments: hasn't been taking at home Rx Instructions: Goal to have 2-3 soft bowel movements per day insulin lispro 100 unit/mL insulin pen, half-unit SUBCUT Patient Comments: INJECT 20 UNITS THREE TIMES DAILY FOR CONTROLLING BLOOD SUGARS Referrals / Follow Up: Josy Elias NP-C [Primary Care Provider] - 04/27/25 10:00 am Foster Rascon MD [Med Staff - Active Staff, Urology] - Within 1 Month Disposition Disposition (needs filled in before D/C Order can be placed): Home, Self Care
--- NOTE | 2025-04-20 11:53 | DS.PCM_ITS ---
Providers Date of Admission: 04/18/25 Date of Discharge: 04/20/25 Primary Care Physician: YG Pena Consultations 04/19/25 11:40 Consult: Urology Routine Consulting Provider: Foster Rascon Reason for Consult: staghorn calculus, microscopic hematuria on UA EMERGENT Consult: No MD Notified: Yes Date Notified: 04/19/25 Time Notified: 11:41 Method of Notification: Verbal Reason For Visit: CONCERN FOR SBP Diagnosis Discharge Diagnosis (1) Abdominal pain: Status: Acute Code(s): R10.9 - Unspecified abdominal pain (2) Urinary tract infection: Status: Acute Code(s): N39.0 - Urinary tract infection, site not specified Plan This 59-year-old gentleman was admitted with altered mental status, hypoglycemia, blood sugar was 36 mg/dL. Patient also complained of abdominal pain for last couple days. # Abdominal pain, nonspecific: Patient is being admitted self-referral. On exam there is nonspecific tenderness. Diagnostic paracentesis is ordered. Patient on IV ceftriaxone. Patient got 2 doses of 25% IV albumin. 04/20: Abdominal pain has resolved. Abdominal ultrasound done yesterday did not find enough fluid for safe paracentesis in all 4 quadrants. Urine culture negative. Therefore antibiotic discontinued. SBP ruled out as there is not enough/sufficient fluid. # Acute encephalopathy with decompensated MASLD cirrhosis with portosystemic anastomosis, esophageal varices: Possible differential is hypoglycemia/hepatic encephalopathy. Patient has been admitted multiple times for this. Patient on furosemide, spironolactone and carvedilol. Couple weeks ago, the patient was in hospice care and requested PleurX catheter in the abdomen for ascites drainage. Ultrasound-guided tunneled catheter was inserted on 03/30. But patient got admitted on 04/07 after hospice revoked. 04/19: Cause suspected multifactorial. There is a mild improvement in mental status after correction of hypoglycemia. Continue lactulose 15 mL 2-3 times weekly on goal of 2-3 soft bowel movement per day 04/20: Patient encouraged to take lactulose. #Abnormal UA with mild microscopic hematuria, pyuria and bacteriuria, UTI ruled out: UA reported WBC 25-50 cells, RBC 5200 cells, LE 500 squamous epithelium 0-5 cells, 1+ bacteria. Nitrite negative. Patient previous UA also showed microscopic hematuria 5O-[address] abdomen shows left kidney staghorn stone stable. Left-sided double-J stent catheter in place. urine culture exhibits no growth. Blood culture pending. 04/20: Follow-up with urologist as an outpatient Dr. Rascon. # History of portal vein thrombosis -Was previously on Lovenox however seems that this was discontinued due to anemia, he did not tolerate full dose anticoagulation. Current H&H 7.7/23.2%. #Type 2 diabetes mellitus: - Patient with hypoglycemia, will need to decrease home insulin. Titrate insulin dosage as per glucose monitoring. #DVT ppx: SCDs Discharge medication reconciliation done. Discharge follow-up instructions completed. Discharge process discussed with the patient and all questions were answered to patient's satisfaction. Follow with PCP in 1 to 2 weeks Total time spent, exact 35 minutes on discharge meds reconciliation, examination, coordination of care with nurses and ancillary staff, review of imaging and blood test and discussion with the patient on follow-up instructions. Medications at Discharge Home Medications acetaminophen 500 mg tablet 1,000 mg PO Q8 PRN fever or pain 10/28/24 cyclobenzaprine 10 mg tablet 10 mg PO QHS muscle relaxer 01/02/25 pen needle, diabetic 31 gauge x 5/16 (Pen Needle) #1,200 ea 01/31/25 insulin glargine-yfgn 100 unit/mL (3 mL) subcutaneous pen 30 unit subcut QHS blood glucose 03/10/25 insulin lispro 100 unit/mL subcutaneous pen (Humalog KwikPen (U-100) Insulin) 20 unit subcut TIDAC 04/07/25 metformin 500 mg tablet 500 mg PO QHS blood glucose 04/07/25 oxycodone 5 mg tablet 5 mg PO TID PRN PRN dyspnea 04/07/25 sodium bicarbonate 650 mg tablet 650 mg PO BID supplement 04/07/25 ascorbic acid (vitamin C) 500 mg tablet 500 mg PO BID supplement #60 tabs 04/10/25 carvedilol 3.125 mg tablet 6.25 mg (2 x 3.125 mg) PO BID BP 1 month #60 tabs 04/10/25 ferrous sulfate 325 mg (65 mg iron) tablet 325 mg PO QODAY supplement #30 tabs 04/10/25 furosemide 40 mg tablet 40 mg PO DAILY diuresis 30 days #30 tabs 04/10/25 lactulose 10 gram/15 mL oral solution 10 g (15 mL) PO 4XD liver 30 days #1 mL 04/10/25 spironolactone 100 mg tablet 150 mg (1.5 x 100 mg) PO DAILY BP 30 days #45 tabs 04/10/25 insulin lispro 100 unit/mL subcutaneous half-unit pen subcut blood glucose 04/18/25 Physical Exam Narrative Physical exam: General: Alert, Oriented x3, Cooperative, has hard to recall HEENT: Atraumatic, PERRLA, EOMI, Normocephalic. Oral: Oral mucosa moist. No Gingival or Mucosal Lesions/ Ulcerations Neck: Supple, No JVD, Negative Carotid Bruits Chest wall/Lungs: Air entry diminished in bilateral lung bases. No crepitation/rhonchi Cardiovascular: Regular rate and rhythm, Normal S1,S2, No M/G/R Abdomen: Bowel Sounds Present, Soft, mild nonspecific tenderness present. mild ascites present. : No dysuria. Microscopic hematuria. No renal angle tenderness. No suprapubic tenderness. Extremities: No edema, Capillary Refill Less than 3 Seconds Skin: Bruises present on left upper arm and abdomen. Musculoskeletal: No Tenderness to Palpation of Joints or Extremities. Mild muscle atrophy of extremities Neurological: Cranial nerves II-XII grossly intact, DTR 2+/4. No acute focal neurological deficit. Psych/Mental Status: flat affect, forgetful, intermittent encephalopathy Weight / BMI Weight Weight: 211 lb 3.245 oz Body Mass Index (BMI) 31.2 ABG / Lab / Microbiology Data 04/20/25 03:53 04/20/25 03:53 Laboratory: Laboratory Results - last 24 hr 04/19/25 11:59: POC Glucose 224 H 04/19/25 17:06: POC Glucose 182 H 04/19/25 20:36: POC Glucose 167 H 04/20/25 03:53: WBC 5.2, RBC 2.54 L, Hgb 7.6 L, Hct 23.0 L, MCV 90.6, MCH 29.9, MCHC 33.0, RDW Std Deviation 53.1 H, RDW Coeff of Francis 16.0 H, Plt Count 88 L, MPV 11.3, Immature Gran % (Auto) 0.400, Neut % (Auto) 56.9, Lymph % (Auto) 24.0, [place] % (Auto) 12.3 H, Eos % (Auto) 6.0 H, Baso % (Auto) 0.4, Absolute Neuts (auto) 3.0, Absolute Lymphs (auto) 1.25, Nucleated RBC % 0, Sodium 135, Potassium 4.1, Chloride 109 H, Carbon Dioxide 17.3 L, Anion Gap 9, BUN 12, Creatinine 1.05, Estim Creat Clear Calc 87.58, Est GFR (MDRD) Non-Af 82, BUN/Creatinine Ratio 11.3, Glucose 141 H, Calcium 8.3, Total Bilirubin 1.09, AST 32, ALT 19, Alkaline Phosphatase 108, Total Protein 5.1 L, Albumin 2.5 L, Globulin 2.6, Albumin/Globulin Ratio 1.0 04/20/25 06:16: POC Glucose 139 H 04/20/25 11:02: POC Glucose 201 H Microbiology: Microbiology 04/18/25 15:30 Blood Culture (Wb) - Right Wrist Blood Culture - Preliminary No growth in 48 hours. 04/18/25 15:30 Blood Culture (Wb) - Left Hand Blood Culture - Preliminary No growth in 48 hours. 04/18/25 16:55 Urine, Clean Catch Urine Culture - Preliminary Culture exhibits no growth. Radiography Diagnostic Testing: Radiology Impression Abdomen Ultrasound 04/19/25 07:00 IMPRESSION: Not enough fluid for safe paracentesis. Reading Location: [place] [address] D/C Instructions DC O2, CPAP, BIPAP Needs Home O2 Discharge instructions: No Meaningful Use Info Meaningful Use Meaningful Use Diagnoses (Choose all that apply): None applicable Discharge Plan Admission Admit Date/Time: 04/18/25 19:24 Attending Provider: Anurag Irene Primary Care Provider: Josy Elias Consulting Providers: Kathie Powers; Foster Rascon Discharge Orders/Prescriptions Prescriptions: Continued cyclobenzaprine 10 mg tablet 10 mg PO QHS (DME) pen needle, diabetic [Pen Needle] 31 gauge x 5/16 needle See Rx Instructions .Route Qty: 1200 0RF Rx Instructions: As directed acetaminophen 500 mg Tablet 1,000 mg PO Q8 PRN (Reason: fever or pain) insulin glargine-yfgn 100 unit/mL (3 mL) Insulin Pen 30 unit subcut QHS metformin 500 mg tablet 500 mg PO QHS sodium bicarbonate 650 mg tablet 650 mg PO BID oxycodone 5 mg tablet 5 mg PO TID PRN PRN (Reason: dyspnea) insulin lispro [Humalog KwikPen Insulin] 100 unit/mL Insulin Pen 20 unit subcut TIDAC furosemide 40 mg Tablet 40 mg PO DAILY 30 Days Qty: 30 2RF ferrous sulfate 325 mg (65 mg iron) tablet 325 mg PO QODAY Qty: 30 2RF ascorbic acid (vitamin C) 500 mg tablet 500 mg PO BID Qty: 60 2RF spironolactone 100 mg tablet 150 mg PO DAILY 30 Days Qty: 45 3RF Rx Instructions: Hold for serum potassium more than 5.0. carvedilol 3.125 mg tablet 6.25 mg PO BID 30 Days Qty: 60 2RF Rx Instructions: must administer with a meal/food lactulose 10 gram/15 mL Solution 10 g PO 4XD 30 Days Qty: 1 0RF Patient Comments: hasn't been taking at home Rx Instructions: Goal to have 2-3 soft bowel movements per day insulin lispro 100 unit/mL insulin pen, half-unit SUBCUT Patient Comments: INJECT 20 UNITS THREE TIMES DAILY FOR CONTROLLING BLOOD SUGARS Referrals / Follow Up: Foster Rascon MD [Med Staff - Active Staff, Urology] - Within 1 Month Josy Elias NP-C [Primary Care Provider, [facility]] - 04/27/25 10:00 am Disposition Disposition (needs filled in before D/C Order can be placed): Home, Self Care Charges/Coding Visit Charges Inpatient E&M: 54823 Disch Hosp >30min
--- NOTE | 2025-04-20 12:02 | CASEMGMT ---
DAYSI HUGHES NOTE: Pt has order in for discharge. Therapy notes from yesterday reviewed. Pt ambulated 210 ft w/use of WW mod assist. DAYSI HUGHES to room. Pt resting in bed. Pt aware he is getting discharged today. He states he feels safe to discharge home & denies need for OP therapy. He states his ex- will be taking him home today, but won't be able to come in until about 3 or 4 PM, after she gets off of work. He denies having any discharge needs or concerns. Holger PINTON DAYSI CM
--- NOTE | 2025-04-20 12:59 | CASEMGMT ---
Social Work- SW met with pt to follow up on advanced directives. Pt reports that he knows he had directives naming Sylvia and believes they are maybe at home. Pt declined to complete today, as he believes he has them at home. SW requested copy of directives for scan into chart. JANETTE Valladares
== END 2025-04-20 15:25 | disposition home or self-care (01) | DRG 420 ==
LOC: ED 17:20 → MS3 20:03
PROVIDERS: Anesthesiology; Admitting Provider Internal Medicine; Emergency Provider Emergency Medicine; PCP Nurse Practitioner Family; Visit Provider Internal Medicine
DX: E11.649 Type 2 diabetes mellitus with hypoglycemia without coma (principal); G93.41 Metabolic encephalopathy; I85.00 Esophageal varices without bleeding; I10 Essential (primary) hypertension; K74.60 Unspecified cirrhosis of liver; E78.5 Hyperlipidemia, unspecified; G47.33 Obstructive sleep apnea (adult) (pediatric); Z79.4 Long term (current) use of insulin; K76.82 Hepatic encephalopathy; R10.9 Unspecified abdominal pain; Z79.84 Long term (current) use of oral hypoglycemic drugs; Z79.899 Other long term (current) drug therapy; Z87.891 Personal history of nicotine dependence; Z99.89 Dependence on other enabling machines and devices; R41.82 Altered mental status, unspecified
CPT/HCPCS: 36415; 70450; 71045; 74176; 76705; 80048; 80053; 80076; 81001; 82140; 82962; 83036; 83605; 83735; 84100; 84484; 85025; 85384; 85610; 85730; 87040; 87086; 87088; 93005; 97162; 97166; 97802; 99285; P9047; A4216; J0696

== ENCOUNTER 2025-05-06 18:56 | Inpatient (IN) | payer MEDICAID, SELFPAY ==
[2025-05-06 18:56] VITALS: BP 88/58; PULSE 89; RESP 18; TEMP 37; O2SAT 92
[2025-05-06 19:39] VITALS: BP 94/65; PULSE 83; RESP 16; O2SAT 98
[2025-05-06 19:43] VITALS: BMI 27.7
--- NOTE | 2025-05-06 19:47 | CT_ITS ---
PROCEDURE: ABDOMEN/PELVIS W IV CONT ONLY 05/06/2025 REASON FOR EXAM: ABDOMINAL PAIN TECHNIQUE: Procedure Code: [id number] Modality: CT Procedure: ABDOMEN/PELVIS W IV CONT ONLY Coronal and Sagittal reconstruction series were provided. CONTRAST: Isovue 370 VOLUME: 98 mL One or more dose reduction techniques were used (e.g., Automated exposure control, adjustment of the mA and/or kV according to patient size, use of iterative reconstruction technique. RADIATION DOSE SUMMARY: CTDlvol: 21.78 mGy DLP: 1249.51 mGycm COMPARISON: CT abdomen and pelvis 04/18/2025. FINDINGS: Lung bases: Diffuse ground-glass densities in the lungs may represent pulmonary edema. Atherosclerotic calcifications of the coronary arteries. Liver: Lobulated contour consistent with cirrhosis. Gallbladder: Cholelithiasis. No biliary dilation. Spleen: Splenomegaly, 16 cm. Pancreas: Unremarkable Adrenals: Unremarkable Kidneys: Large staghorn stones in the left kidney are unchanged. A left-sided double-J catheter. No right hydronephrosis. Bladder: Unremarkable. Reproductive Organs: Unremarkable. Bowel: No bowel obstruction. No bowel wall thickening. Appendix: Unremarkable. Lymph nodes: No lymphadenopathy. Vasculature: No aneurysm. Atherosclerotic calcifications. Prominent splenic and gastroesophageal varicose. Peritoneum / Retroperitoneum: No free air or free fluid. Bones: Chronic compression fracture of T12 and L1 vertebral bodies CT/Abdomen/Pelvis W IV Cont ONLY IMPRESSION: Diffuse ground-glass densities in the lungs may represent pulmonary edema. Liver cirrhosis. No ascites. Reading Location: [facility]
--- NOTE | 2025-05-06 19:48 | ED.VIS.GI ---
HPI HPI - GI History of Present Illness Chief Complaint: Abd Pain Informant: patient Abdominal Pain/Flank Pain Onset: Days Context: Gradual Onset Timing: Continuous Quality: Aching and Cramping Location: Diffuse Current Severity: Mild Maximum Severity: Mild Worsened by: Nothing Relieved by: Nothing Nausea/Vomiting/Emesis GI Symptom: Positive for Nausea, Vomiting and - (X 1 today.) Onset: Today Severity: Mild Diarrhea/Melena/Hematochezia GI Symptom: Negative for Diarrhea, Melena or Hematochezia Associated Symptoms Associated Symptoms: Negative for Dysuria, Frequency, Hematuria or Urgency Narrative Narrative: 59-year-old male history of liver cirrhosis, diabetes and anemia. No prior abdominal surgeries. He has not had abdominal paracentesis for months. States he is having some diffuse abdominal pain last 3 days. Had 1 episode of nausea and vomiting today while in the emergency department. Denies any melena. No fever no chills. No dysuria. States he is having bowel movements and is urinating. Denies any diarrhea or constipation. Denies any prior abdominal surgeries. Prior similar symptoms: Yes Recent Illness/Hospitalization: No PFSH PFS Medical History Diffuse abdominal pain Acute hepatic encephalopathy Hyperammonemia Elevated liver enzymes Cirrhosis of liver with ascites Decompensated cirrhosis History of diabetes mellitus Chronic anemia VRE (vancomycin resistant enterococcus) culture positive Spinal stenosis, lumbar region with neurogenic claudication Umbilical hernia Chronic hyponatremia Weakness Diarrhea Sepsis Acidosis, lactic Acute hypotension Acute UTI Chronic hypotension Obesity (BMI 30-39.9) Chronic back pain ISABEL (acute kidney injury) Hypotension Hyperbilirubinemia Liver cirrhosis secondary to HARRIS (nonalcoholic steatohepatitis) HLD (hyperlipidemia) HTN (hypertension) Thrombocytopenia Chronic anemia Former tobacco use Diabetes mellitus, type 2 ABBY on CPAP Back pain Home Medications ?Medication ?Instructions ?Recorded ?Last Taken ?Type acetaminophen 500 mg tablet 1,000 mg PO Q8 PRN fever or pain 10/28/24 Unknown History cyclobenzaprine 10 mg tablet 10 mg PO QHS muscle relaxer 01/02/25 02/15/25 History pen needle, diabetic 31 gauge x #1,200 ea 01/31/25 Unknown Rx /16 (Pen Needle) insulin glargine-yfgn 100 unit/mL 30 unit subcut QHS blood glucose 03/10/25 Unknown History (3 mL) subcutaneous pen insulin lispro 100 unit/mL 20 unit subcut TIDAC 04/07/25 Unknown History subcutaneous pen (Humalog KwikPen (U-100) Insulin) metformin 500 mg tablet 500 mg PO QHS blood glucose 04/07/25 Unknown History oxycodone 5 mg tablet 5 mg PO TID PRN PRN dyspnea 04/07/25 Unknown History sodium bicarbonate 650 mg tablet 650 mg PO BID supplement 04/07/25 Unknown History ascorbic acid (vitamin C) 500 mg 500 mg PO BID supplement #60 tabs 04/10/25 Unknown Rx tablet carvedilol 3.125 mg tablet 6.25 mg (2 x 3.125 mg) PO BID BP 1 04/10/25 03/30/25 Rx month #60 tabs ferrous sulfate 325 mg (65 mg 325 mg PO QODAY supplement #30 tabs 04/10/25 Unknown Rx iron) tablet furosemide 40 mg tablet 40 mg PO DAILY diuresis 30 days 04/10/25 Unknown Rx #30 tabs lactulose 10 gram/15 mL oral 10 g (15 mL) PO 4XD liver 30 days 04/10/25 Unknown Rx solution #1 mL spironolactone 100 mg tablet 150 mg (1.5 x 100 mg) PO DAILY BP 04/10/25 Unknown Rx 30 days #45 tabs insulin lispro 100 unit/mL subcut blood glucose 04/18/25 Unknown History subcutaneous half-unit pen Allergy/AdvReac Type Severity Reaction Status Date / Time No Known Allergies Allergy Verified 05/06/25 18:56 Family History Mother Heart disease Hypertension CAD (coronary artery disease) Myocardial infarction Father Hypertension Heart disease Heart failure Surgical History History of tonsillectomy and adenoidectomy Social History household members: other details: Lives with his ex /her . Smoking Status: Former smoker how long ago did patient quit smoking: Quit Fall 2023, smoked 1.5 ppd since teen until quit. alcohol intake: never substance use type: does not use additional social history: EX and a friend help with his care. ROS ROS ED ROS Narrative Abdominal pain. Nausea vomiting x 1 today. Constitutional Constitutional ED: Denies chills or fever(s) ENT ENT ED: Denies ear pain Cardiovascular Cardiovascular: Denies chest pain Respiratory/Chest Respiratory/Chest: Denies cough or dyspnea Gastrointestinal Gastrointestinal: Reports abdominal pain, nausea and vomiting; Denies constipation, diarrhea or melena Genitourinary Genitourinary ED: Denies dysuria or hematuria Musculoskeletal Musculoskeletal: Denies arthralgias or back pain Integumentary Denies abscess Neurologic Neurologic: Denies headache(s) Psychiatric Psychiatric: Denies anxiety Endocrine Endocrinology: Denies polydipsia Hematologic/Lymphatic Hematologic/Lymphatic: Denies easy bleeding Allergic/Immunologic Allergic/Immunologic ED: Denies mouth swelling, tongue swelling or urticaria EXAM Physical Exam Narrative Exam Narrative: 59-year-old male sitting upright in bed. His initial blood pressure 88/58 recheck 94/65. He is tolerating it well. HEENT exam pupils round react light. Moist extremities. Neck nontender. Lungs clear to auscultation bilaterally. Heart regular rhythm rate about 85 no murmur. Chest wall ribs nontender. Abdomen soft nondistended normal bowel sounds without peritoneal signs. Diffusely tender. Small umbilical hernia. No mass. No signs of obstruction. No right upper or lower quadrant tenderness specifically. No pulsatile mass. Moving all 4 extremities. Calves are nontender without edema. He has normal strength. Neurologically he is awake and alert. Back is nontender. Const Vital Signs: 05/06/25 18:56 05/06/25 19:39 05/06/25 20:00 Temperature 98.6 F Temperature Source Temporal Pulse Rate 89 83 78 Respiratory Rate 18 16 16 Blood Pressure 88/58 L 94/65 98/63 Blood Pressure Mean 68 74 74 Pulse Ox 92 98 94 Oxygen Delivery Method Room Air Room Air 05/06/25 21:00 05/06/25 22:00 05/06/25 23:00 Temperature Temperature Source Pulse Rate 68 68 68 Respiratory Rate Blood Pressure 100/62 99/62 94/59 L Blood Pressure Mean 74 74 70 Pulse Ox Oxygen Delivery Method Positive well nourished and well developed; Negative for cachectic, contractures or unkempt General Appearance ED: well developed and NAD; Negative for unkempt, cachectic, contractures or pallor Nutritional Appearance: Negative for cachectic HEENT Reports moist mucous membranes normocephalic and atraumatic Eyes PERRL and EOMs intact bilaterally Neck no lymphadenopathy, supple and no JVD Resp normal respiratory effort and clear to auscultation bilaterally Cardio regular rate, regular rhythm, S1 normal heart sound, S2 normal heart sound and no murmurs GI non-distended and no masses; Negative for non-tender GI Narrative: Diffuse tenderness. No localizing right upper or right lower quadrant pain. Auscultation: normoactive bowel sounds Palpation: soft, tender and hernia umbilical; Negative for guarding, rigid, mass, pulsatile mass or rebound tenderness present Back/Spine no CVA tenderness General Back: Negative for CVA tenderness Cervical Spine: Negative for cervical spine tenderness Thoracic Spine / Upper Back: Negative for thoracic spinal tenderness Lumbar Spine / Lower Back: Negative for lumbar spinal tenderness Extremity full ROM General Extremety ED: Negative for edema General Extremity: Negative for edema Neuro CN's II-XII intact bilaterally and moves all extremities Sensorium / Orientation: alert, oriented to person and oriented to place Motor Exam: strength 5/5 throughout Psych mental status grossly normal and thought process normal Appearance: Negative for unkempt Skin no wounds General Skin Exam: Negative for jaundice or pallor Lesions: no lesions Rashes: no rashes MDM MDM MDM Narrative Medical decision making narrative: 59-year-old male history of cirrhosis with diffuse abdominal pain. Clinically only as appendicitis or cholecystitis he does not have an obstruction. CAT scan and labs will be obtained. Repeat exam at 11:15 PM. No significant change. His pressures in the 90s systolic will be given a second liter of fluid. The urine is possibly UTI culture be sent to be started on IV Rocephin. A second IV will be started. also his bilirubin is very elevated. I will give him lactulose. I spoken to the hospitalist she is not evaluating. Will be admitted to the PCU. History & Record Review Discussion w/independent historian: Patient Additional record(s) reviewed:: Prior inpatient record, Prior outpatient record, Prior ED visit and Prior labs Lab Data Attestation: I reviewed the patient's lab results. Lab results narrative: CBC shows a white count 8.4. H&H 10.8 and 31. Platelets 156. Electrolytes show sodium 131. Gap 13. BUN and creatinine 29 and 1.82. Liver enzymes show an elevated total bili at 1.37. AST of 41. Ammonia levels elevated to 98. Amylase normal at 40. Lipase normal at 60. Urinalysis shows 25-50 red cells greater than or white cells 1+ bacteria. No nitrates. A culture will be sent. CAT scan shows cirrhosis which he has a known history of. No ascites. No other acute process. Labs: Laboratory Results - last 24 hr 05/06/25 05/06/25 20:12 21:04 WBC 8.4 RBC 3.59 L Hgb 10.8 L Hct 31.0 L MCV 86.4 MCH 30.1 MCHC 34.8 RDW Std Deviation 51.5 H RDW Coeff of Francis 16.4 H Plt Count 156 MPV 11.4 Immature Gran % (Auto) 0.400 Neut % (Auto) 60.8 Lymph % (Auto) 19.4 Russell % (Auto) 11.2 H Eos % (Auto) 7.6 H Baso % (Auto) 0.6 Absolute Neuts (auto) 5.1 Absolute Lymphs (auto) 1.63 Nucleated RBC % 0 Sodium 131 L Potassium 3.3 Chloride 100 Carbon Dioxide 18.4 L Anion Gap 13 BUN 29 H Creatinine 1.82 H Estim Creat Clear Calc 47.90 L Est GFR (MDRD) Non-Af 43 L BUN/Creatinine Ratio 15.7 Glucose 89 Calcium 8.8 Total Bilirubin 1.37 H AST 41 H ALT 26 Alkaline Phosphatase 122 Ammonia 298.0 H Total Protein 5.9 Albumin 2.8 L Globulin 3.1 Albumin/Globulin Ratio 0.9 Amylase 40 Lipase 60 Urine Color Rocio Urine Clarity Turbid Urine pH 7.0 Ur Specific [place] 1.010 Urine Protein 100 H Urine Glucose (UA) Normal Urine Ketones Negative Urine Occult Blood 250 H Urine Nitrite Negative Urine Bilirubin Negative Urine Urobilinogen Normal Ur Leukocyte Esterase 500 H Urine RBC 25-50 SEEN Urine WBC >100 SEEN Ur Squamous Epith Cells 0-5 SEEN Ur Transition Epith Cell 0-5 SEEN Urine Bacteria 1+ Urine Mucus 0 SEEN Radiography Diagnostic Testing: Clinical Impression(s) from Imaging Studies Abdomen/Pelvis CT 05/06/25 19:47 IMPRESSION: Diffuse ground-glass densities in the lungs may represent pulmonary edema. Liver cirrhosis. No ascites. Reading Location: [facility] Discharge Plan Dx/Rx/DC Orders Clinical Impression: Acute dehydration, Hyperammonemia, Acute hepatic encephalopathy, History of cirrhosis, Acute UTI, History of diabetes mellitus Disposition Disposition: Acute Care Hospital [facility]
[2025-05-06 20:00] VITALS: BP 98/63; PULSE 78; RESP 16; O2SAT 94
[2025-05-06] MEDS: 0.9% Normal Saline (1000mL) 1,000 ML 999 ML IV ×2 (20:04→23:41)
[2025-05-06 20:19] LABS: Hematocrit 31.0 % (40-54); Hemoglobin 10.8 g/dL (13.0-16.5); Immature Granulocytes Count 0.030 X10^3/uL (0.0-0.0); Mean Corp Hgb Conc 34.8 g/dL (32-36); Mean Corpuscular Volume 86.4 fL (80-94); Mean Platelet Vol. 11.4 fl (6.2-12.0); NRBC Flagged by Analyzer 0 % (0-5); Platelet Count 156 K/mm3 (150-450); RBC Distribution Width CV 16.4 % (11.6-14.6); RBC Distribution Width SD 51.5 fl (35.1-43.9); Red Blood Count 3.59 M/mm3 (4.6-6.2); White Blood Count 8.4 K/mm3 (4.4-11.0)
[2025-05-06 20:51] LABS: AST(SGOT) 41 U/L (<=37); Alanine Aminotransfer ALT/SGPT 26 U/L (<=46); Albumin, Serum 2.8 g/dL (3.5-5.0); Alkaline Phosphatase 122 U/L (40-129); Ammonia 298.0 umol/L (16-60); Amylase 40 U/L (28-100); Anion Gap 13 (5-15); BUN 29 mg/dL (4-19); BUN/Creat Ratio 15.7 RATIO (10-20); Calcium,Total 8.8 mg/dL (7.6-11.0); Carbon Dioxide 18.4 mmol/L (21.0-32.0); Chloride 100 mmol/L (98-108); Estimated Creatinine Clearance 47.90 ml/min (50-250); Globulin 3.1 g/dL (2.2-4.2); Glucose 89 mg/dL (70-99); Lipase 60 U/L (13-75); Potassium 3.3 mmol/L (3.3-5.1)
[2025-05-06 21:00] VITALS: BP 100/62; PULSE 68
[2025-05-06 21:07] LABS: Mucous, Urine 0 SEEN /hpf (<or=2+)
--- OUTSIDE RECORDS SUMMARY | 2025-05-06 21:12 | XMS RPT_ITS | CCD ---
Author Organization [facility] Care Team Providers Care Tourist Information Assistant Name Role Phone Sergey HERNANDEZ, Maurice Soria Primary Care Provider Care Physician, No Primary Primary Care Provider Unavailable Dr. Danny Hutton DO Attending Provider Dr. Danny Hutton DO Emergency Provider Dr. Luis Carlos Anderson DO Emergency Provider Mone HERNANDEZ, Dr. Maria Guadalupe Carlson Admit Provider Dr. Maria Guadalupe Shore MD Referring Provider Dr. Maria Guadalupe Shore MD Other Provider [phone] Rick Carlin DO Attending Provider Erin HERNANDEZ, Dr. Rocha Other Provider Zelalem HERNANDEZ, Dr. Coker Other Provider Dr. Christian Abdi MD Other Provider Dr. Juarez Baird MD Other Provider Dr. Bola Meraz DO Attending Provider Dr. Bola Meraz DO Other Provider Víctor HERNANDEZ, Dr. Hill Alcaraz Other Provider Ashli HERNANDEZ, Dr. Aguilar Other Provider [phone] Dr. Yury Canas MD Other Provider Ashely [...] Referring Provider BILLDIANE Parada Other Provider Bailee ALTERATION SPECIALIST-C, Jasmine Attending Provider Shaun HERNANDEZ, Dr. Campo Emergency Provider Caro DO, Dr. Alejandre Attending Provider Unav ailable Care Physician, No Primary Primary Care Provider Unavailable [facility], Dr. Delgado Attending Provider CorazonDr. Danny [...] Missael HERNANDEZ, Dr. Cotton Other Provider [phone] Ashely HERNANDEZ, Dr. Foote Other Provider [phone] Cassandra HERNANDEZ, Dr. Garvin Other Provider Yamil HERNANDEZ, Dr. Solis Other Provider Rojas HERNANDEZ, Dr. Enriquez Other Provider Seble HERNANDEZ, Dr. Hernández Other Provider Desmond HERNANDEZ, Dr. Snow Other [facility] Venegas MD, Dr. Whyte Other [...] Dr. Jae Ash DO Other Provider [phone] Karena HERNANDEZ, Dr. Andre Other Provider Abiodun HERNANDEZ, Dr. Foster Rivas Other Provider Teto HERNANDEZ, Dr. Osborn Referring Provider Nomi HERNANDEZ, Dr. Douglas Other Provider Teto HERNANDEZ, Dr. Anurag Attending Provider Dr. Jae Ash DO Attending Provider Dr. Boone Izquierdo DO Other Provider DIANE CALLAHAN Attending Provider BILLDIANE Parada Referring Provider BILLDIANE Parada Other Provider Bailee ALTERATION SPECIALIST-C, Jasmine Attending Provider Shaun HERNANDEZ, Dr. Campo [...] Dr. Scott Weston DO Other Provider Elie ALTERATION SPECIALIST-C, Yue Other Provider Caro DO, Dr. Alejandre Referring Provider Unav ailable Shila HERNANDEZ, Dr. Buster Barr Attending Provider Dr. Buster Fuchs MD Referring Provider Dr. Hill Acuña MD Attending Provider Unavaila priscila Powers MD, Dr. Vázquez Other Provider Unavailable Primary Care Provider Radha Carlson MD, Dr. Kevin Emergency Provider Nilsa NOYOLA, Dr. Rowe Admit Provider Gio HERNANDEZ, Dr. Vázquez Admit Provider Tannhof ALTERATION SPECIALIST-C, Josy Primary Care Provider Tannhof ALTERATION SPECIALIST-C, Josy Attending Provider KATHIE POWERS Referring Unavailable DAY PRICE Admitting Unavailable YOUNG CRUZ Attending Unavailable Care Physician, No Primary Primary Care Provider [facility]available [facility] ALTERATION SPECIALIST-C, Josy Referring Provider Wei NOYOLA, Dr. Shook [...] Ashely HERNANDEZ, Dr. Foote Other Provider [phone] Cassandra HERNANDEZ, Dr. Garvin Other Provider Dr. Will Lobo MD Other Provider Dr. Mina Xie MD Other Provider Dr. Betty Pruett MD Other Provider Dr. Gwendolyn Logan MD Other Provider Unavailabl karma Venegas MD, Dr. Whyte Other Provider Laurent HERNANDEZ, Dr. Raya Other Provider Angely HERNANDEZ, Dr. Silver Other Provider Dr. Mason Samano DO Other Provider [phone] Carmela HERNANDEZ, Dr. Tam Other Provider Mallorie [...] Ashely HERNANDEZ, Dr. Foote Other Provider [phone] Cassandra HERNANDEZ, Dr. Garvin Other Provider [phone] Dr. Will Lobo MD Other Provider [phone] Dr. Mina Xie MD Other Provider [phone] Seble HERNANDEZ, Dr. Hernández Other Provider Desmond HERNANDEZ, Dr. Snow Other [facility] Mosher MD, Dr. Douglas Other Provider [phone] Theo HERNANDEZ, Dr. Whyte Other Provider Laurent [...] Provider Dr. Breann Mendez DO Emergency Provider Dr. Yaritza Leo DO Admit [...] Jeremi NOYOLA, Dr. Enriquez Other Provider John ALTERATION SPECIALIST-C, Mar Attending Provider Presley HERNANDEZ, Dr. Marques [...] Provider Dr. Bola Meraz DO Other Provider [phone] Víctor HERNANDEZ, Dr. Hill Alcaraz Other Provider Ashli HERNANDEZ, Dr. Aguilar Other Provider [phone] Missael HERNANDEZ, Dr. Cotton Other Provider [phone] Ashely HERNANDEZ, Dr. Foote Other Provider [phone] Cassandra HERNANDEZ, Dr. Garvin Other Provider Yamil [...] Dr. Luis Carlos Anderson DO Attending Provider [phone] Dr. Niranjan Li DO Attending Provider Julita Glover Attending Provider Unavailab maría Elias NP-C, Josy Other Provider Dr. Rick Carlin DO Attending Provider Dr. Rick Carlin DO Other Provider DIANE CALLAHAN Attending Provider DIANE CALLAHAN Referring Provider Sherrie HERNANDEZ, Dr. Ca Attending Provider Curt ALTERATION SPECIALIST-C, Josy Primary Care Provider Curt ALTERATION SPECIALIST-C, Josy Attending Provider hSila HERNANDEZ, Dr. Buster Barr Other Provider Domenico [...] Provider Shaun HERNANDEZ, Dr. Campo Attending Provider [phone] Sherrie HERNANDEZ, Dr. Ca Referring Provider Sherrie HERNANDEZ, Dr. Ca Other Provider Dr. Jose Fox MD Emergency Provider Dr. Rachel Joiner DO Emergency Provider Mone HERNANDEZ, Dr. Maria Guadalupe Carlson Attending Provider Mone HERNANDEZ, Dr. Maria Guadalupe Carlson Admit Provider Mone HERNANDEZ, Dr. Maria Guadalupe Carlson Admit Provider Mone HERNANDEZ, Dr. Maria Guadalupe Carlson Other Provider Cielo Tovar Attending Unavailable Yaritza Leo Consulting Unavailable Yaritza Leo Admitting Unavailable Josy Elias Primary Care Unavailable Jefferson Malave Consulting Unavailable Cielo Tovar Consulting Unavailable Aleyda Bautista Consulting Unavailable Tannhof, Josy Primary Care Unavailable White, Maria Guadalupe L Consulting Unavailable White, Maria Guadalupe L Admitting Unavailable Anurag Irene Attending Unavailable Raegan, Rick Consulting Unavailable Tannhof, Josy Primary Care Unavailable Powers, Kathie Admitting Unavailable Powers, Kathie Consulting Unavailable Anurag Irene Attending Unavailable Foster Rascon Consulting Unavailable Tannhof, Josy Primary Care Unavailable White, Maria Guadalupe L Consulting Unavailable White, Maria Guadalupe L Admitting Unavailable Terlasha, Rick Attending Unavailable Teto, Anurag Attending Unavailable Tereletsky, Rick Consulting Unavailable Teto, Anurag Consulting Unavailable Mosteller, Jae Consulting Unavailable Mosteller, Jae Admitting Unavailable Care Physician, No Primary Primary Care Unava ilable Anurag Irene Attending Unavailable Teto, Anurag Consulting Unavailable Mosteller, Jae Consulting Unavailable Mosteller, Jae Admitting Unavailable Care Physician, No Primary Primary Care Unava ilable Anurag Irene Attending Unavailable Teto, Anurag Consulting Unavailable Kathie Powers Attending Unavailable Powers, Kathie Admitting Unavailable Care Physician, No Primary Primary Care Unava ilable Powers, Kathie Consulting Unavailable Hill Acuña Attending Unavailable Hill Acuña Consulting Unavailable Karena, Thai Consulting Unavailable Buster Fuchs Consulting Unavailable Buster Fuchs Admitting Unavailable Buster Fuchs Attending Unavailable Tannf, Josy Primary Care Unavailable Tannhof, Josy Primary Care Unavailable Maria Guadalupe Shore L Attending Unavailable [facility], Josy Primary Care Unavailable Jose Fox Attending Unavailable [facility], Josy Referring Unavailable [facility], Josy Primary Care Unavailable [facility] Josy Attending Unavailable Powers, Kathie Admitting Unavailable Care Physician, No Primary Primary Care Unava ilable Hill Acuña Attending Unavailable Powers, Kathie Consulting Unavailable Karena, Thai Consulting Unavailable COLTON ANDERSON Referring Unavailable COLTON ANDERSON Attending Unavailable Care Physician, No Primary Primary Care Unava ilable COLTON ANDERSON Referring Unavailable COLTON ANDERSON Attending Unavailable Care Physician, No Primary Primary Care Unava ilable Danny Hutton Attending Unavailabl e Care Physician, No Primary Primary Care Unava ilable Mina Blood Attending Unavailable Jerald Sherwood Primary Care Unavailable Luis Carlos Anderson Attending Unavailable Sherwood, Jerald Primary Care Unavailable Boone Carvajal Attending Unavailable Tannhof, Josy Primary Care Unavailable Yaritza Leo Attending Unavailable Jotamareri, Boone Consulting Unavailable Jopperi, Boone Admitting Unavailable Sherwood, Jerald Primary Care Unavailable Mina Blood Referring Unavailable Mina Blood Attending Unavailable Sherwood, Jerald Primary Care Unavailable Sherwood, Jerald Attending Unavailable Sherwood, Jerald Referring Unavailable Sherwood, Jerald Primary Care Unavailable COLTON ANDERSON Referring Unavailable COLTON ANDERSON Attending Unavailable Tannhof, Josy Primary Care Unavailable Tannhof, Josy Referring Unavailable Tannhof, Josy Consulting Unavailable Julita Glover Attending Unavailable Tannhof, Josy Primary Care Unavailable Jopperi, Boone Consulting Unavailable Jopperi, Boone Admitting Unavailable Yaritza Leo Attending Unavailable Sherwood, Jerald Primary Care Unavailable Yaritza Leo Consulting Unavailable White, Maria Guadalupe L Admitting Unavailable Care Physician, No Primary Primary Care Unava ilable White Maria Guadalupe L Attending Unavailable White, Maria Guadalupe L Referring Unavailable White, Maria Guadalupe L Consulting Unavailable Tannhof, Josy Primary Care Unavailable Kathie Powers Admitting Unavailable Kathie Powers Attending Unavailable Kathie Powers Consulting Unavailable Anurag Irene Attending Unavailable Foster Rascon Consulting Unavailable Teto, Anurag Consulting Unavailable Jae Ash Attending Unavailable Kathie Powers Attending Unavailable Tannhof, Josy Primary Care Unavailable Tannhof, Josy Primary Care Unavailable Tannhof, Josy Attending Unavailable Jae Ash Consulting Unavailable Jae Ash Admitting Unavailable Care Physician, No Primary Primary Care Unava ilable Anurag Irene Attending Unavailable Buster Fuchs Consulting Unavailable Buster Fuchs Admitting Unavailable Tannhof, Josy Primary Care Unavailable Hill Acuña Attending Unavailable Gio Kathie Admitting Unavailable Tannhof, Josy Primary Care Unavailable Rick Carlin Attending Unavailable Kathie Powers Consulting Unavailable Hill Acuña Attending Unavailable Hill Acuña Consulting Unavailable Anurag Irene Attending Unavailable Teto, Anurag Consulting Unavailable Boone Izquierdo Attending Unavailable Sherwood, Jerald Primary Care Unavailable Dick Irenesh Attending Unavailable Tannhof, Josy Referring Unavailable Tannhof, Josy Primary Care Unavailable Nelida Harris Attending Unavailable Sherwood, Jerald Referring Unavailable Tannhof, Josy Primary Care Unavailable Roby Balderas Referring Unavailable Roby Balderas Consulting Unavailable Roby Balderas Attending Unavailable [facility] Primary Care Unavailable Kathie Powers Attending Unavailable Hill Caro Admitting Unavailable Hill Caro Consulting Unavailable Care Physician, No Primary Primary Care Unava ilable Foster Rascon Consulting Unavailable Buster Fuchs Consulting Unavailable Hill Acuña Consulting Unavailable Kathie Powers Consulting Unavailable COLTON ANDERSON Referring Unavailable COLTON ANDERSON Consulting Unavailable Bailee ALTERATION SPECIALIST, Jasmine Attending Unavailable Care Physician, No Primary Primary Care Unava ilable Hill Herrmann Consulting Unavailable Blair Cage Consulting Unavailable Thiago Wray Consulting Unavailable Gabbi Hughes Consulting Unavailable Thai Godfrey Consulting Unavailable Juan Daniel Garza Consulting Unavailable Zachariah Glover Consulting Unavailable Scott Weston Consulting Unavailable Elie ROSA, Yue Consulting Unavailable Hill Acuña Attending Unavailable Jefferson Malave Attending Unavailable Anurag Irene Referring Unavailable John Paul Masterson Consulting Unavailable Rick Carlin Attending Unavailable Christian Abdi Consulting Unavailable Juarez Baird Consulting Unavailable Bola Meraz Consulting Unavailable Hill Renee Consulting Unavailable Jeff Cornelius Consulting Unavailable Yury Canas Consulting Unavailable Dary Lund Consulting UnavailBharathi East Consulting Unavailable Will Lobo Consulting Unavailable Mina Xie Consulting Unavailable Betty Pruett Consulting Unavailable Gwendolyn Logan Consulting Unavailable Ivonne Venegastam Consulting Unavailable Elver Mancilla Consulting Unavailable Nadeem Au Consulting Unavailable Mason Samano Consulting Unavailable Anel Casey Consulting Unavailable Robin Nobles Consulting Unavailable Kenneth Noland Consulting Unavailable Lupillo Robbins Consulting Unavailable Young Richardson Consulting Unavailable Erin, Jayapracecil Consulting Unavailable Rick Carlin Consulting Unavailable Jae Ash Attending Unavailable Jae Ash Admitting Unavailable Jerald Sherwood Primary Care Unavailable Jae Ash Consulting Unavailable Anurag Irene Attending Unavailable Niranjan Li Consulting Unavailable Anurag Irene Consulting Unavailable Niranjan Li Attending Unavailable Josy Elias Primary Care Unavailable Anurag Irene Referring Unavailable Kathie Powers Admitting Unavailable Niranjan Li Attending Unavailable Kathie Powers Consulting Unavailable [facility], Josy Primary Care Unavailable Rick Carlin Referring Unavailable Rick Carlin Attending Unavailable Rick Carlin Consulting Unavailable Mina Blood Attending Unavailable [facility] Primary Care Unavailable Alber Dunn Attending Unavailable [facility] [place] Primary Care Unavailable Hill Caro Admitting Unavailable Care Physician, No Primary Primary Care Unava ilable Foster Rascon Consulting Unavailable Anurag Irene Attending Unavailable Hill Caro Consulting Unavailable Thai Thurston Consulting Unavailable Josefina Khan Consulting Unavailable Teto, Anurag Consulting Unavailable Jae Ash Attending Unavailable Jae Ash Consulting Unavailable Roby Balderas Attending Unavailable [facility] Referring Unavailable [facility], Josy Primary Care Unavailable Yaritza Leo Attending Unavailable Niranjan Li Attending Unavailable Buster Fuchs Referring Unavailable Niranjan Li Attending Unavailable Boone Izquierdo Attending Unavailable Boone Izquierdo Consulting Unavailable Hill Caro [...] Venegastam Consulting Unavailable Elver Mancilla Consulting Unavailable Angely, Nadeem Consulting Unavailable Dhesi, Mason Consulting Unavailable Anel Casey Consulting Unavailable Robin Nobles Consulting Unavailable Kenneth Noland Consulting Unavailable Lupillo Robbins Consulting Unavailable Young Richardson Consulting Unavailable Bola Meraz Attending Unavailable Hill Caro Referring Unavailable Buster Fuchs Attending Unavailable Mina Blood Consulting Unavailable Mina Blood Referring Unavailable Mar Lopez Attending Unavailable Jerald Sherwood Primary Care Unavailable Roby Balderas Referring Unavailable Roby Balderas Attending Unavailable [facility] Primary Care Unavailable Boone Izquierdo Attending Unavailable Hill Caro Admitting Unavailable Hill Caro Consulting Unavailable Care Physician, No Primary Primary Care Unava ilable Anurag Irene Consulting Unavailable Jae Ash Consulting Unavailable Thai Thurston Consulting Unavailable Josefina Khan Consulting Unavailable Foster Rascon Consulting Unavailable White, Maria Guadalupe L Admitting Unavailable Care Physician, No Primary Primary Care Unava ilable White, Maria Guadalupe L Referring Unavailable White, Maria Guadalupe L Consulting Unavailable Rick Carlin Attending Unavailable Josefina Khan Consulting Unavailable Kathie Powers Attending Unavailable Hill Caro Admitting Unavailable Hill Caro Consulting Unavailable Care Physician, No Primary Primary Care Unava ilable Foster Rascon Consulting Unavailable Buster Fuchs Consulting Unavailable Hill Acuña Consulting Unavailable Hill Herrmann Consulting Unavailable Blair Cage Consulting Unavailable Thiago Wray Consulting Unavailable Gabbi Hughes Consulting Unavailable Thai Godfrey Consulting Unavailable Juan Daniel Garza Consulting Unavailable Zachariah Glover Consulting Unavailable Scott Weston Consulting Unavailable Elie ROSA, Yue Consulting Unavailable Yaritza Leo Consulting Unavailable Yaritza Leo Admitting Unavailable [facility] Primary Care Unavailable Anurag Irene Attending Unavailable Jefferson Malave Consulting Unavailable Aleyda Bautista Consulting Unavailable Guy, Cielo Edyta Consulting Unavailable Jae Ash Admitting Unavailable [facility] Primary Care Unavailable Anurag Irene Attending Unavailable Jae Ash Consulting Unavailable Niranjan Li Consulting Unavailable Bola Meraz Attending Unavailable Guy, Cielo Edyta Referring Unavailable [...] Richardson Consulting Unavailable Hill Caro Attending Unavailable John [...] Robbins Consulting Unavailable Young Richardson Consulting Unavailable Bola Meraz Attending Unavailable Anurag Irene Referring Unavailable Medications Current Medications Medication Drug [...] 11/03/2024 Active take 2 tablets by [facility] once daily furosemide (LASIX) 20 mg tablet Take 40 mg by mouth once daily. Suspended metFORMIN hydrochloride 500 mg oral tablet (20 sources) Biguanide Start: 04-07-2025 Start: 11-21-2024 End: 03-30-2025 Start: 11-18-2024 [facility] at dinner metFORMIN ER (GLUMETZA) [...] preference? Yes take 1 capsule by mo [facility] every six hours as needed oxyCODONE [...] 09-02-2024 End: 11-21-2024 [facility] pantoprazole DR (PROTONIX) 40 mg [...] abdominal pain] Onset: 10-04-2024 10-04-2024 Episodic Acute posthemorrhagic anemia (20 sources) Acute [...] initial encounter for fracture] 01-09-2025 Episodic Other gastrointestinal disorders (20 sources) Ascites; [...] sources) Hepatic encephalopathy; Translations: [Hepatic encephalopathy] Onset: 04-18-2025 09-10-2024 Episodic Other liver diseases (13 sources) [...] [Altered mental status, unspecified] Onset: 04-14-2025 Episodic Superficial injury; contusion (20 sources) Contusion [...] Classification Problem Date Documented Da te Episodic/Chronic Acute and unspecified renal failure (20 sources) Acute renal failure syndrome; Translations: [Acute kidney failure, unspecified] Onset: 01-11-2025 09-10-2024 Episodic Calculus of urinary tract (20 sources) [...] and ureter, unspecified] Onset: 09-17-2024 Episodic Other fractures (1 source) Collapsed vertebra, not elsewhere classified, thoracic region, initial encounter for fracture; Translations: [Collapsed vertebra, not elsewhere classified, thoracic region, initial encounter for fracture] Onset: 01-21-2025 Episodic Other gastrointestinal disorders (1 source) Diarrhea, unspecified; Translations: [Diarrhea, unspecified] Onset: 11-11-2024 Episodic Other injuries and conditions due to external causes (1 source) Encounter for examination and observation following other accident; Translations: [Encounter for examination and observation following other accident] Onset: 09-08-2024 Episodic Septicemia (except in labor) (20 sources) [...] Translations: [Dorsalgia, unspecified] Onset: 09-10-2024 09-23-2024 Episodic Results Test Name Value Interpretation Reference Range Facility Culture, Blood (WB)on 2024 CUB Blood cultures x2, f rom two different sites No growth in 5 days. [facility] Comment on above: Performed By: #### L 300.3900, M200.1000, L503.5510, L500.3400, L300.4310, L100.0100, L503.6005 ####[facility] [address] [place], [address] CBC W/Diff, Automatedon 09- Absolute Neut Normal 2.0-7.7 [facility] Comment on above: Result Comment: Canc elled via OM: Order cancelled - Patient discharged Performed By: #### L 500.4050, L100.0100 ####[facility] [address] [place], [address] HCT Normal 40-54 [facility] Comment on above: Result Comment: Canc elled via OM: Order cancelled - Patient discharged Performed By: #### L 500.4050, L100.0100 ####[facility] [address] [place], [address] HGB Normal 13.0-16.5 [facility] Comment on above: Result Comment: Canc elled via OM: Order cancelled - Patient discharged Performed By: #### L 500.4050, L100.0100 ####[facility] [address] [place], [address] MCH Normal 27.0-32.0 [facility] Comment on above: Result Comment: Canc elled via OM: Order cancelled - Patient discharged Performed By: #### L 500.4050, L100.0100 ####[facility] [address] [place], [address] MCHC Normal 32-36 [facility] Comment on above: Result Comment: Canc elled via OM: Order cancelled - Patient discharged Performed By: #### L 500.4050, L100.0100 ####[facility] [address] [place], [address] MCV Normal 80-94 [facility] Comment on above: Result Comment: Canc elled via OM: Order cancelled - Patient discharged Performed By: #### L 500.4050, L100.0100 ####[facility] [address] [place], [address] NEUT% Normal 47-70 [facility] Comment on above: Result Comment: Canc elled via OM: Order cancelled - Patient discharged Performed By: #### L 500.4050, L100.0100 ####[facility] [address] [place], [address] PLT Normal 150-450 [facility] Comment on above: Result Comment: Canc elled via OM: Order cancelled - Patient discharged Performed By: #### L 500.4050, L100.0100 ####[facility] [address] [place], [address] RBC Normal 4.6-6.2 [facility] Comment on above: Result Comment: Canc elled via OM: Order cancelled - Patient discharged Performed By: #### L 500.4050, L100.0100 ####[facility] [address] [place], [address] RDW CV Normal 11.6-14.6 [facility] Comment on above: Result Comment: Canc elled via OM: Order cancelled - Patient discharged Performed By: #### L 500.4050, L100.0100 ####[facility] [address] [place], [address] RDW SD Normal 35.1-43.9 [facility] Comment on above: Result Comment: Canc elled via OM: Order cancelled - Patient discharged Performed By: #### L 500.4050, L100.0100 ####[facility] [address] [place], [address] WBC Normal 4.4-11.0 [facility] Comment on above: Result Comment: Canc elled via OM: Order cancelled - Patient discharged Performed By: #### L 500.4050, L100.0100 ####[facility] [address] [place], [address] Comprehensive Metabolic Prof ilon 04-21-2025 ALB Normal 3.5-5.0 [facility] Comment on above: Result Comment: Canc elled via OM: Order cancelled - Patient discharged Performed By: #### L 500.4050, L100.0100 ####[facility] [address] [place], [address] ALK PHOS Normal 40-129 [facility] Comment on above: Result Comment: Canc elled via OM: Order cancelled - Patient discharged Performed By: #### L 500.4050, L100.0100 ####[facility] [address] [place], [address] ALT Normal <=46 [facility] Comment on above: Result Comment: Canc elled via OM: Order cancelled - Patient discharged Performed By: #### L 500.4050, L100.0100 ####[facility] [address] [place], [address] AST Normal <=37 [facility] Comment on above: Result Comment: Canc elled via OM: Order cancelled - Patient discharged Performed By: #### L 500.4050, L100.0100 ####[facility] [address] [place], [address] BUN Normal 4-19 [facility] Comment on above: Result Comment: Canc elled via OM: Order cancelled - Patient discharged Performed By: #### L 500.4050, L100.0100 ####[facility] [address] [place], [address] BUN/CRE Normal 10-20 [facility] Comment on above: Result Comment: Canc elled via OM: Order cancelled - Patient discharged Performed By: #### L 500.4050, L100.0100 ####[facility] [address] [place], [address] Calcium Normal 7.6-11.0 [facility] Comment on above: Result Comment: Canc elled via OM: Order cancelled - Patient discharged Performed By: #### L 500.4050, L100.0100 ####[facility] [address] [place], [address] CL Normal 98-108 [facility] Comment on above: Result Comment: Canc elled via OM: Order cancelled - Patient discharged Performed By: #### L 500.4050, L100.0100 ####[facility] [address] [place], [address] CO2 Normal 21.0-32.0 [facility] Comment on above: Result Comment: Canc elled via OM: Order cancelled - Patient discharged Performed By: #### L 500.4050, L100.0100 ####[facility] [address] [place], [address] CREAT,SERUM Normal 0.70-1.20 [facility] Comment on above: Result Comment: Canc elled via OM: Order cancelled - Patient discharged Performed By: #### L 500.4050, L100.0100 ####[facility] [address] [place], [address] eGFR Normal >60 [facility] Comment on above: Result Comment: Canc elled via OM: Order cancelled - Patient discharged Performed By: #### L 500.4050, L100.0100 ####[facility] [address] [place], [address] GAP Normal 5-15 [facility] Comment on above: Result Comment: Canc elled via OM: Order cancelled - Patient discharged Performed By: #### L 500.4050, L100.0100 ####[facility] [address] [place], [address] GLU Normal 70-99 [facility] Comment on above: Result Comment: Canc elled via OM: Order cancelled - Patient discharged Performed By: #### L 500.4050, L100.0100 ####[facility] [address] [place], [address] Potassium Normal 3.3-5.1 [facility] Comment on above: Result Comment: Canc elled via OM: Order cancelled - Patient discharged Performed By: #### L 500.4050, L100.0100 ####[facility] [address] [place], [address] T BILI Normal 0.00-1.30 [facility] Comment on above: Result Comment: Canc elled via OM: Order cancelled - Patient discharged Performed By: #### L 500.4050, L100.0100 ####[facility] [address] [place], [address] T PROT Normal 5.9-8.4 [facility] Comment on above: Result Comment: Canc elled via OM: Order cancelled - Patient discharged Performed By: #### L 500.4050, L100.0100 ####[facility] [address] [place], [address] Comprehensive Metabolic Profil Normal 133-145 [facility] Comment on above: Result Comment: Canc elled via OM: Order cancelled - Patient discharged Performed By: #### L 500.4050, L100.0100 ####[facility] [address] [place], [address] Urine Cultureon 04-21-2025 URC Below infection leve l. Mixed Gram Positive Organisms Glen Count 1000-10,000 MIXC Mixed contaminants. Submit a new specimen if indicated. Normal [facility] Comment on above: Performed By: #### M 100.2200, L400.0001 ####[facility] [address] [place], [address] Bedside Glucoseon 04-20-2025 FINGERSTICK GLU 201 mg/dL High 74-106 [facility] Comment on above: Result Comment: BRISA GEMENT OF PATIENT CARE PER NURSING PROTOCOL Performed By: #### L 501.080 ####[facility] [address] [place], [address] FINGERSTICK GLU 139 mg/dL High 74-106 [facility] Comment on above: Result Comment: BRISA GEMENT OF PATIENT CARE PER NURSING PROTOCOL Performed By: #### L 501.080 ####[facility] [address] [place], [address] CBC W/Diff, Automatedon 04-04 Absolute Lymph 1.25 X10 3/uL Normal 0.83-4.51 [facility] Comment on above: Performed By: #### L 100.0100, L500.4050 ####[facility] [address] [place], [address] Absolute Neut 3.0 X10 3/uL Normal 2.0-7.7 [facility] Comment on above: Performed By: #### L 100.0100, L500.4050 ####[facility] [address] [place], [address] Basophils/100 WBC (Bld) 0.4 % Normal 0-1 [facility] Comment on above: Performed By: #### L 100.0100, L500.4050 ####[facility] [address] [place], [address] Eosinophils/100 WBC (Bld) 6.0 % High 0-5 [facility] Comment on above: Performed By: #### L 100.0100, L500.4050 ####[facility] [address] [place], [address] Erythrocyte distribution width (RBC) [Ratio] 16.0 % High 11.6-14.6 [facility] Comment on above: Performed By: #### L 100.0100, L500.4050 ####[facility] [address] [place], [address] Hematocrit (Bld) [Volume fraction] 23.0 % Low 40-54 [facility] Comment on above: Performed By: #### L 100.0100, L500.4050 ####[facility] [address] [place], [address] Hemoglobin (Bld) [Mass/Vol] 7.6 g/dL Low 13.0-16.5 [facility] Comment on above: Performed By: #### L 100.0100, L500.4050 ####[facility] [address] [place], [address] IG% 0.400 Normal 0.0-0.9 [facility] Comment on above: Result Comment: IG% - Immature Granulocytes (promyelocytes, myelocytes andmetamyelocytes) > 1% indicates that a LEFT SHIFT is Present. Performed By: #### L 100.0100, L500.4050 ####[facility] [address] [place], [address] Lymphocytes/100 WBC (Bld) 24.0 % Normal 19-41 [facility] Comment on above: Performed By: #### L 100.0100, L500.4050 ####[facility] [address] [place], [address] MCH (RBC) [Entitic mass] 29.9 pg Normal 27.0-32.0 [facility] Comment on above: Performed By: #### L 100.0100, L500.4050 ####[facility] [address] [place], [address] MCHC (RBC) [Mass/Vol] 33.0 g/dL Normal 32-36 [facility] Comment on above: Performed By: #### L 100.0100, L500.4050 ####[facility] [address] [place], [address] MCV (RBC) [Entitic vol] 90.6 fL Normal 80-94 [facility] Comment on above: Performed By: #### L 100.0100, L500.4050 ####[facility] [address] [place], [address] Monocytes/100 WBC (Bld) 12.3 % High 0-10 [facility] Comment on above: Performed By: #### L 100.0100, L500.4050 ####[facility] [address] [place], [address] Neutrophils/100 WBC (Bld) 56.9 % Normal 47-70 [facility] Comment on above: Performed By: #### L 100.0100, L500.4050 ####[facility] [address] [place], [address] Nucleated RBC (Bld) [#/Vol] 0 10*3/uL Normal 0-5 [facility] Comment on above: Performed By: #### L 100.0100, L500.4050 ####[facility] [address] [place], [address] Platelet mean volume (Bld) [Entitic vol] 11.3 fL Normal 6.2-12.0 [facility] Comment on above: Performed By: #### L 100.0100, L500.4050 ####[facility] [address] [place], [address] Platelets (Bld) [#/Vol] 88 10*3/uL Low 150-450 [facility] Comment on above: Performed By: #### L 100.0100, L500.4050 ####[facility] [address] [place], [address] RBC (Bld) [#/Vol] 2.54 10*6/uL Low 4.6-6.2 [facility] Comment on above: Performed By: #### L 100.0100, L500.4050 ####[facility] [address] [place], [address] RDW SD 53.1 fl High 35.1-43.9 [facility] Comment on above: Performed By: #### L 100.0100, L500.4050 ####[facility] [address] [place], [address] WBC (Bld) [#/Vol] 5.2 10*3/uL Normal 4.4-11.0 [facility] Comment on above: Performed By: #### L 100.0100, L500.4050 ####[facility] [address] [place], [address] Comprehensive Metabolic Prof [facility] 04-20-2025 Albumin [Mass/Vol] 2.5 g/dL Low 3.5-5.0 [facility] Comment on above: Performed By: #### L 100.0100, L500.4050 ####[facility] [address] [place], [address] Albumin/Globulin [Mass ratio] 1.0 {ratio} Normal 0.9-2.4 [facility] Comment on above: Performed By: #### L 100.0100, L500.4050 ####[facility] [address] [place], [address] ALK PHOS 108 U/L Normal 40-129 [facility] Comment on above: Performed By: #### L 100.0100, L500.4050 ####[facility] [address] [place], [address] ALT [Catalytic activity/Vol] 19 U/L Normal <=46 [facility] Comment on above: Performed By: #### L 100.0100, L500.4050 ####[facility] [address] [place], [address] AST [Catalytic activity/Vol] 32 U/L Normal <=37 [facility] Comment on above: Performed By: #### L 100.0100, L500.4050 ####[facility] [address] [place], [address] Bilirubin [Mass/Vol] 1.09 mg/dL Normal 0.00-1.30 [facility] Comment on above: Performed By: #### L 100.0100, L500.4050 ####[facility] [address] [place], [address] BUN/CRE 11.3 RATIO Normal 10-20 [facility] Comment on above: Performed By: #### L 100.0100, L500.4050 ####[facility] [address] [place], [address] Calcium [Mass/Vol] 8.3 mg/dL Normal 7.6-11.0 [facility] Comment on above: Performed By: #### L 100.0100, L500.4050 ####[facility] [address] [place], [address] Chloride [Moles/Vol] 109 mmol/L High 98-108 [facility] Comment on above: Performed By: #### L 100.0100, L500.4050 ####[facility] [address] [place], [address] CO2 [Moles/Vol] 17.3 mmol/L Low 21.0-32.0 [facility] Comment on above: Performed By: #### L 100.0100, L500.4050 ####[facility] [address] [place], [address] Creatinine [Mass/Vol] 1.05 mg/dL Normal 0.70-1.20 [facility] Comment on above: Performed By: #### L 100.0100, L500.4050 ####[facility] [address] [place], [address] ECRCL 87.58 ml/min Normal 50-250 [facility] Comment on above: Performed By: #### L 100.0100, L500.4050 ####[facility] [address] [place], [address] GAP 9 Normal 5-15 [facility] Comment on above: Performed By: #### L 100.0100, L500.4050 ####[facility] [address] [place], [address] GFR/1.73 sq M.predicted among non-blacks MDRD (S/P/Bld) [Vol rate/Area] 82 mL/min/{1.73_m2} Normal >60 [facility] Comment on above: Result Comment: mL/m in/1.73m2 CKD-EPI Creatinine Equation (2020) Performed By: #### L 100.0100, L500.4050 ####[facility] [address] [place], [address] Globulin (S) [Mass/Vol] 2.6 g/dL Normal 2.2-4.2 [facility] Comment on above: Performed By: #### L 100.0100, L500.4050 ####[facility] [address] [place], [address] Glucose [Mass/Vol] 141 mg/dL High 70-99 [facility] Comment on above: Performed By: #### L 100.0100, L500.4050 ####[facility] [address] [place], [address] Potassium [Moles/Vol] 4.1 mmol/L Normal 3.3-5.1 [facility] Comment on above: Performed By: #### L 100.0100, L500.4050 ####[facility] [address] [place], [address] Sodium [Moles/Vol] 135 mmol/L Normal 133-145 [facility] Comment on above: Performed By: #### L 100.0100, L500.4050 ####[facility] [address] [place], [address] T PROT 5.1 g/dL Low 5.9-8.4 [facility] Comment on above: Performed By: #### L 100.0100, L500.4050 ####[facility] [address] [place], [address] Urea nitrogen [Mass/Vol] 12 mg/dL Normal 4-19 [facility] Comment on above: Performed By: #### L 100.0100, L500.4050 ####[facility] [address] [place], [address] Discharge Instructionon 09-1 Discharge Instruction Normal [facility] Abdomen Limitedon 04-19-2025 Abdomen Limited Normal [facility] Bedside Glucoseon 04-19-2025 FINGERSTICK GLU 167 mg/dL High 74-106 [facility] Comment on above: Result Comment: BRISA GEMENT OF PATIENT CARE PER NURSING PROTOCOL Performed By: #### L 501.080 ####[facility] [address] [place], [address] FINGERSTICK GLU 182 mg/dL High 74-106 [facility] Comment on above: Result Comment: BRISA GEMENT OF PATIENT CARE PER NURSING PROTOCOL Performed By: #### L 501.080 ####[facility] [address] [place], [address] FINGERSTICK GLU 224 mg/dL High 74-106 [facility] Comment on above: Result Comment: BRISA GEMENT OF PATIENT CARE PER NURSING PROTOCOL Performed By: #### L 501.080 ####[facility] [address] [place], [address] FINGERSTICK GLU 187 mg/dL High 74-106 [facility] Comment on above: Result Comment: BRISA GEMENT OF PATIENT CARE PER NURSING PROTOCOL Performed By: #### L 501.080 ####[facility] [address] [place], [address] CBC W/Diff, Automatedon 04-04 PLT EST SLT DEC Normal [facility] Comment on above: Performed By: #### L 300.4700, L100.0100, L300.4310, L300.3900 ####[facility] [address] [place], [address] PLT EST SLT DEC Normal [facility] Comment on above: Performed By: #### L 500.4050, L100.0100 ####[facility] [address] [place], [address] Comprehensive Metabolic Prof [facility] 04-19-2025 Albumin [Mass/Vol] 2.5 g/dL Low 3.5-5.0 [facility] Comment on above: Performed By: #### L 500.4050, L100.0100 ####[facility] [address] [place], [address] Albumin/Globulin [Mass ratio] 1.0 {ratio} Normal 0.9-2.4 [facility] Comment on above: Performed By: #### L 500.4050, L100.0100 ####[facility] [address] [place], [address] ALK PHOS 107 U/L Normal 40-129 [facility] Comment on above: Performed By: #### L 500.4050, L100.0100 ####[facility] [address] [place], [address] ALT [Catalytic activity/Vol] 17 U/L Normal <=46 [facility] Comment on above: Performed By: #### L 500.4050, L100.0100 ####[facility] [address] [place], [address] AST [Catalytic activity/Vol] 30 U/L Normal <=37 [facility] Comment on above: Performed By: #### L 500.4050, L100.0100 ####[facility] [address] [place], [address] Bilirubin [Mass/Vol] 1.42 mg/dL High 0.00-1.30 [facility] Comment on above: Performed By: #### L 500.4050, L100.0100 ####[facility] [address] [place], [address] BUN/CRE 15.4 RATIO Normal 10-20 [facility] Comment on above: Performed By: #### L 500.4050, L100.0100 ####[facility] [address] [place], [address] Calcium [Mass/Vol] 8.5 mg/dL Normal 7.6-11.0 [facility] Comment on above: Performed By: #### L 500.4050, L100.0100 ####[facility] [address] [place], [address] Chloride [Moles/Vol] 110 mmol/L High 98-108 [facility] Comment on above: Performed By: #### L 500.4050, L100.0100 ####[facility] [address] [place], [address] CO2 [Moles/Vol] 15.7 mmol/L Low 21.0-32.0 [facility] Comment on above: Performed By: #### L 500.4050, L100.0100 ####[facility] [address] [place], [address] Creatinine [Mass/Vol] 0.92 mg/dL Normal 0.70-1.20 [facility] Comment on above: Performed By: #### L 500.4050, L100.0100 ####[facility] [address] [place], [address] ECRCL 99.60 ml/min Normal 50-250 [facility] Comment on above: Performed By: #### L 500.4050, L100.0100 ####[facility] [address] [place], [address] GAP 9 Normal 5-15 [facility] Comment on above: Performed By: #### L 500.4050, L100.0100 ####[facility] [address] [place], [address] GFR/1.73 sq M.predicted among non-blacks MDRD (S/P/Bld) [Vol rate/Area] 97 mL/min/{1.73_m2} Normal >60 [facility] Comment on above: Result Comment: mL/m in/1.73m2 CKD-EPI Creatinine Equation (2020) Performed By: #### L 500.4050, L100.0100 ####[facility] [address] [place], [address] Globulin (S) [Mass/Vol] 2.5 g/dL Normal 2.2-4.2 [facility] Comment on above: Performed By: #### L 500.4050, L100.0100 ####[facility] [address] [place], [address] Glucose [Mass/Vol] 167 mg/dL High 70-99 [facility] Comment on above: Performed By: #### L 500.4050, L100.0100 ####[facility] [address] [place], [address] Potassium [Moles/Vol] 4.4 mmol/L Normal 3.3-5.1 [facility] Comment on above: Performed By: #### L 500.4050, L100.0100 ####[facility] [address] [place], [address] Sodium [Moles/Vol] 135 mmol/L Normal 133-145 [facility] Comment on above: Performed By: #### L 500.4050, L100.0100 ####[facility] [address] [place], [address] T PROT 5.0 g/dL Low 5.9-8.4 [facility] Comment on above: Performed By: #### L 500.4050, L100.0100 ####[facility] [address] [place], [address] Urea nitrogen [Mass/Vol] 14 mg/dL Normal 4-19 [facility] Comment on above: Performed By: #### L 500.4050, L100.0100 ####[facility] [address] [place], [address] Fibrinogenon 04-19-2025 FIBRINOGEN 156 mg/dl Low 203-444 [facility] Comment on above: Performed By: #### L 300.4700, L100.0100, L300.4310, L300.3900 ####[facility] [address] [place], [address] Hemoglobin A1con 04-19-2025 HbA1c (Bld) [Mass fraction] 5.9 % High <=5.6 [facility] Comment on above: Result Comment: Norm al < 5.7 % Prediabetic 5.7 - 6.4 % Diabetic >or= 6.5 % Please note range changes. Performed By: #### L 501.2300, L501.9985, L300.3900, L501.5200 ####[facility] [address] [place], [address] Magnesiumon 04-19-2025 Magnesium [Mass/Vol] 1.5 mg/dL Normal 1.5-2.2 [facility] Comment on above: Performed By: #### L 501.2300, L501.9985, L300.3900, L501.5200 ####[facility] [address] [place], [address] Partial Thromboplast Timeon 04-19-2025 aPTT Coag (Bld) [Time] 44.5 s High 24.1-36.2 [facility] Comment on above: Performed By: #### L 300.4700, L100.0100, L300.4310, L300.3900 ####[facility] [address] [place], [address] Phosphoruson 04-19-2025 Phosphate [Mass/Vol] 3.5 mg/dL Normal 2.7-4.5 [facility] Comment on above: Performed By: #### L 501.2300, L501.9985, L300.3900, L501.5200 ####[facility] [address] [place], [address] Prothrombin Time w/INRon INR Coag (PPP) [Relative time] 2.2 {INR} Normal [facility] Comment on above: Performed By: #### L 300.4700, L100.0100, L300.4310, L300.3900 ####[facility] [address] [place], [address] PT Coag (PPP) [Time] 24.4 s High 11.7-14.9 [facility] Comment on above: Performed By: #### L 300.4700, L100.0100, L300.4310, L300.3900 ####[facility] [address] [place], [address] INR Coag (PPP) [Relative time] 2.3 {INR} Normal [facility] Comment on above: Performed By: #### L 501.2300, L501.9985, L300.3900, L501.5200 ####[facility] [address] [place], [address] PT Coag (PPP) [Time] 26.2 s High 11.7-14.9 [facility] Comment on above: Performed By: #### L 501.2300, L501.9985, L300.3900, L501.5200 ####[facility] [address] [place], [address] 12 Lead EKGon 04-18-2025 12 Lead EKG Normal [facility] Abdomen/Pelvis without Conto n 04-18-2025 Abdomen/Pelvis without Cont Normal [facility] Ammoniaon 04-18-2025 Ammonia (P) [Moles/Vol] 97.2 umol/L High 16-60 [facility] Comment on above: Performed By: #### L 300.3900, M200.1000, L503.5510, L500.3400, L300.4310, L100.0100, L503.6005 ####[facility] [address] [place], [address] Basic Metabolic Profile (BMP )on 04-18-2025 BUN/CRE 12.3 RATIO Normal 10-20 [facility] Comment on above: Performed By: #### L 500.2500, L501.4021 ####[facility] [address] [place], [address] Calcium [Mass/Vol] 8.4 mg/dL Normal 7.6-11.0 [facility] Comment on above: Performed By: #### L 500.2500, L501.4021 ####[facility] [address] [place], [address] Chloride [Moles/Vol] 110 mmol/L High 98-108 [facility] Comment on above: Performed By: #### L 500.2500, L501.4021 ####[facility] [address] [place], [address] CO2 [Moles/Vol] 17.2 mmol/L Low 21.0-32.0 [facility] Comment on above: Performed By: #### L 500.2500, L501.4021 ####[facility] [address] [place], [address] Creatinine [Mass/Vol] 0.97 mg/dL Normal 0.70-1.20 [facility] Comment on above: Performed By: #### L 500.2500, L501.4021 ####[facility] [address] [place], [address] ECRCL 93.48 ml/min Normal 50-250 [facility] Comment on above: Performed By: #### L 500.2500, L501.4021 ####[facility] [address] [place], [address] GAP 8 Normal 5-15 [facility] Comment on above: Performed By: #### L 500.2500, L501.4021 ####[facility] [address] [place], [address] GFR/1.73 sq M.predicted among non-blacks MDRD (S/P/Bld) [Vol rate/Area] 90 mL/min/{1.73_m2} Normal >60 [facility] Comment on above: Result Comment: mL/m in/1.73m2 CKD-EPI Creatinine Equation (2020) Performed By: #### L 500.2500, L501.4021 ####[facility] [address] [place], [address] Glucose [Mass/Vol] 83 mg/dL Normal 70-99 [facility] Comment on above: Performed By: #### L 500.2500, L501.4021 ####[facility] [address] [place], [address] Potassium [Moles/Vol] 4.5 mmol/L Normal 3.3-5.1 [facility] Comment on above: Performed By: #### L 500.2500, L501.4021 ####[facility] [address] [place], [address] Sodium [Moles/Vol] 135 mmol/L Normal 133-145 [facility] Comment on above: Performed By: #### L 500.2500, L501.4021 ####[facility] [address] [place], [address] Urea nitrogen [Mass/Vol] 12 mg/dL Normal 4-19 [facility] Comment on above: Performed By: #### L 500.2500, L501.4021 ####[facility] [address] [place], [address] Bedside Glucoseon 04-18-2025 FINGERSTICK GLU 206 mg/dL High 74-106 [facility] Comment on above: Result Comment: BRISA GEMENT OF PATIENT CARE PER NURSING PROTOCOL Performed By: #### L 501.080 ####[facility] [address] [place], [address] FINGERSTICK GLU 134 mg/dL High 74-106 [facility] Comment on above: Result Comment: BRISA GEMENT OF PATIENT CARE PER NURSING PROTOCOL Performed By: #### L 501.080 ####[facility] [address] [place], [address] FINGERSTICK GLU 108 mg/dL High 74-106 [facility] Comment on above: Result Comment: BRISA GEMENT OF PATIENT CARE PER NURSING PROTOCOL Performed By: #### L 501.080 ####[facility] [address] [place], [address] FINGERSTICK GLU 64 mg/dL Low 74-106 [facility] Comment on above: Result Comment: BRISA MOROCHO OF PATIENT CARE PER NURSING PROTOCOL Performed By: #### L 501.080 ####[facility] [address] [place], [address] Brain/Head without Contrasto n 04-18-2025 Brain/Head without Contrast Normal [facility] CBC W/Diff, Automatedon 04-04 Absolute Lymph 1.05 X10 3/uL Normal 0.83-4.51 [facility] Comment on above: Performed By: #### L 300.3900, M200.1000, L503.5510, L500.3400, L300.4310, L100.0100, L503.6005 ####[facility] [address] [place], [address] Absolute Neut 6.7 X10 3/uL Normal 2.0-7.7 [facility] Comment on above: Performed By: #### L 300.3900, M200.1000, L503.5510, L500.3400, L300.4310, L100.0100, L503.6005 ####[facility] [address] [place], [address] Basophils/100 WBC (Bld) 0.5 % Normal 0-1 [facility] Comment on above: Performed By: #### L 300.3900, M200.1000, L503.5510, L500.3400, L300.4310, L100.0100, L503.6005 ####[facility] [address] [place], [address] Eosinophils/100 WBC (Bld) 1.4 % Normal 0-5 [facility] Comment on above: Performed By: #### L 300.3900, M200.1000, L503.5510, L500.3400, L300.4310, L100.0100, L503.6005 ####[facility] [address] [place], [address] Erythrocyte distribution width (RBC) [Ratio] 16.3 % High 11.6-14.6 [facility] Comment on above: Performed By: #### L 300.3900, M200.1000, L503.5510, L500.3400, L300.4310, L100.0100, L503.6005 ####[facility] [address] [place], [address] Hematocrit (Bld) [Volume fraction] 30.5 % Low 40-54 [facility] Comment on above: Performed By: #### L 300.3900, M200.1000, L503.5510, L500.3400, L300.4310, L100.0100, L503.6005 ####[facility] [address] [place], [address] Hemoglobin (Bld) [Mass/Vol] 10.2 g/dL Low 13.0-16.5 [facility] Comment on above: Performed By: #### L 300.3900, M200.1000, L503.5510, L500.3400, L300.4310, L100.0100, L503.6005 ####[facility] [address] [place], [address] IG% 0.600 Normal 0.0-0.9 [facility] Comment on above: Result Comment: IG% - Immature Granulocytes (promyelocytes, myelocytes andmetamyelocytes) > 1% indicates that a LEFT SHIFT is Present. Performed By: #### L 300.3900, M200.1000, L503.5510, L500.3400, L300.4310, L100.0100, L503.6005 ####[facility] [address] [place], [address] Lymphocytes/100 WBC (Bld) 12.1 % Low 19-41 [facility] Comment on above: Performed By: #### L 300.3900, M200.1000, L503.5510, L500.3400, L300.4310, L100.0100, L503.6005 ####[facility] [address] [place], [address] MCH (RBC) [Entitic mass] 30.1 pg Normal 27.0-32.0 [facility] Comment on above: Performed By: #### L 300.3900, M200.1000, L503.5510, L500.3400, L300.4310, L100.0100, L503.6005 ####[facility] [address] [place], [address] MCHC (RBC) [Mass/Vol] 33.4 g/dL Normal 32-36 [facility] Comment on above: Performed By: #### L 300.3900, M200.1000, L503.5510, L500.3400, L300.4310, L100.0100, L503.6005 ####[facility] [address] [place], [address] MCV (RBC) [Entitic vol] 90.0 fL Normal 80-94 [facility] Comment on above: Performed By: #### L 300.3900, M200.1000, L503.5510, L500.3400, L300.4310, L100.0100, L503.6005 ####[facility] [address] [place], [address] Monocytes/100 WBC (Bld) 8.3 % Normal 0-10 [facility] Comment on above: Performed By: #### L 300.3900, M200.1000, L503.5510, L500.3400, L300.4310, L100.0100, L503.6005 ####[facility] [address] [place], [address] Neutrophils/100 WBC (Bld) 77.1 % High 47-70 [facility] Comment on above: Performed By: #### L 300.3900, M200.1000, L503.5510, L500.3400, L300.4310, L100.0100, L503.6005 ####[facility] [address] [place], [address] Nucleated RBC (Bld) [#/Vol] 0 10*3/uL Normal 0-5 [facility] Comment on above: Performed By: #### L 300.3900, M200.1000, L503.5510, L500.3400, L300.4310, L100.0100, L503.6005 ####[facility] [address] [place], [address] Platelet mean volume (Bld) [Entitic vol] 10.2 fL Normal 6.2-12.0 [facility] Comment on above: Performed By: #### L 300.3900, M200.1000, L503.5510, L500.3400, L300.4310, L100.0100, L503.6005 ####[facility] [address] [place], [address] Platelets (Bld) [#/Vol] 174 10*3/uL Normal 150-450 [facility] Comment on above: Performed By: #### L 300.3900, M200.1000, L503.5510, L500.3400, L300.4310, L100.0100, L503.6005 ####[facility] [address] [place], [address] RBC (Bld) [#/Vol] 3.39 10*6/uL Low 4.6-6.2 [facility] Comment on above: Performed By: #### L 300.3900, M200.1000, L503.5510, L500.3400, L300.4310, L100.0100, L503.6005 ####[facility] [address] [place], [address] RDW SD 53.2 fl High 35.1-43.9 [facility] Comment on above: Performed By: #### L 300.3900, M200.1000, L503.5510, L500.3400, L300.4310, L100.0100, L503.6005 ####[facility] [address] [place], [address] WBC (Bld) [#/Vol] 8.7 10*3/uL Normal 4.4-11.0 [facility] Comment on above: Performed By: #### L 300.3900, M200.1000, L503.5510, L500.3400, L300.4310, L100.0100, L503.6005 ####[facility] [address] [place], [address] Chest 1 View (Portable)on Chest 1 View (Portable) Normal [facility] Emergency Department Summary on 04-18-2025 Emergency Department Summary Normal [facility] H AND P Exam - Hospitaliston 04-18-2025 H&P Exam - Hospitalist Normal [facility] L501.4021on 04-18-2025 Trop T High Sen 11 ng/L Normal <=22 [facility] Comment on above: Performed By: #### L 500.2500, L501.4021 ####[facility] [address] [place], [address] Lactic Acidon 04-18-2025 Lactate [Moles/Vol] 1.9 mmol/L Normal 0.0-2.0 [facility] Comment on above: Order Comment: Y Performed By: #### L 300.3900, M200.1000, L503.5510, L500.3400, L300.4310, L100.0100, L503.6005 ####[facility] [address] [place], [address] Liver Profileon 04-18-2025 Albumin [Mass/Vol] 2.6 g/dL Low 3.5-5.0 [facility] Comment on above: Performed By: #### L 300.3900, M200.1000, L503.5510, L500.3400, L300.4310, L100.0100, L503.6005 ####[facility] [address] [place], [address] ALK PHOS 154 U/L High 40-129 [facility] Comment on above: Performed By: #### L 300.3900, M200.1000, L503.5510, L500.3400, L300.4310, L100.0100, L503.6005 ####[facility] [address] [place], [address] ALT [Catalytic activity/Vol] 27 U/L Normal <=46 [facility] Comment on above: Performed By: #### L 300.3900, M200.1000, L503.5510, L500.3400, L300.4310, L100.0100, L503.6005 ####[facility] [address] [place], [address] AST [Catalytic activity/Vol] 46 U/L High <=37 [facility] Comment on above: Performed By: #### L 300.3900, M200.1000, L503.5510, L500.3400, L300.4310, L100.0100, L503.6005 ####[facility] [address] [place], [address] Bilirubin [Mass/Vol] 1.85 mg/dL High 0.00-1.30 [facility] Comment on above: Performed By: #### L 300.3900, M200.1000, L503.5510, L500.3400, L300.4310, L100.0100, L503.6005 ####[facility] [address] [place], [address] Bilirubin.direct [Mass/Vol] 1.15 mg/dL High 0.00-0.30 [facility] Comment on above: Performed By: #### L 300.3900, M200.1000, L503.5510, L500.3400, L300.4310, L100.0100, L503.6005 ####[facility] [address] [place], [address] Globulin (S) [Mass/Vol] 3.8 g/dL Normal 2.2-4.2 [facility] Comment on above: Performed By: #### L 300.3900, M200.1000, L503.5510, L500.3400, L300.4310, L100.0100, L503.6005 ####[facility] [address] [place], [address] T PROT 6.3 g/dL Normal 5.9-8.4 [facility] Comment on above: Performed By: #### L 300.3900, M200.1000, L503.5510, L500.3400, L300.4310, L100.0100, L503.6005 ####[facility] [address] [place], [address] Partial Thromboplast Timeon 04-18-2025 aPTT Coag (Bld) [Time] 41.6 s High 24.1-36.2 [facility] Comment on above: Performed By: #### L 300.3900, M200.1000, L503.5510, L500.3400, L300.4310, L100.0100, L503.6005 ####[facility] [address] [place], [address] Prothrombin Time w/INRon INR Coag (PPP) [Relative time] 1.8 {INR} Normal [facility] Comment on above: Performed By: #### L 300.3900, M200.1000, L503.5510, L500.3400, L300.4310, L100.0100, L503.6005 ####[facility] [address] [place], [address] PT Coag (PPP) [Time] 20.9 s High 11.7-14.9 [facility] Comment on above: Performed By: #### L 300.3900, M200.1000, L503.5510, L500.3400, L300.4310, L100.0100, L503.6005 ####[facility] [address] [place], [address] Troponin T HS 2 HRon 025 Trop T High Sen 12 ng/L Normal <=22 [facility] Comment on above: Performed By: #### L 499.0042 ####[facility] [address] [place], [address] Troponin T HS 4 HRon 025 Trop T High Sen 13 ng/L Normal <=22 [facility] Comment on above: Performed By: #### L 499.0043 ####[facility] [address] [place], [address] Urinalysis, Completeon 04-18 BACTERIA 1+ /hpf Normal None Seen [facility] Comment on above: Order Comment: COLOR OF URINE MAY AFFECT DIPSTICK RESULTS.CLEAN CATCH Performed By: #### M 100.2200, L400.0001 ####[facility] [address] [place], [address] RBC 50-100 SEEN Normal 0-5 [facility] Comment on above: Order Comment: COLOR OF URINE MAY AFFECT DIPSTICK RESULTS.CLEAN CATCH Performed By: #### M 100.2200, L400.0001 ####[facility] [address] [place], [address] WBC 25-50 SEEN Normal 0-5 [facility] Comment on above: Order Comment: COLOR OF URINE MAY AFFECT DIPSTICK RESULTS.CLEAN CATCH Performed By: #### M 100.2200, L400.0001 ####[facility] [address] [place], [address] EPI,SQUAMOUS 0-5 SEEN Normal 0-5 [facility] Comment on above: Order Comment: COLOR OF URINE MAY AFFECT DIPSTICK RESULTS.CLEAN CATCH Performed By: #### M 100.2200, L400.0001 ####[facility] [address] [place], [address] Mucus Ql (Urine sed) 0 SEEN Normal [facility] Comment on above: Order Comment: COLOR OF URINE MAY AFFECT DIPSTICK RESULTS.CLEAN CATCH Performed By: #### M 100.2200, L400.0001 ####[facility] [address] [place], [address] Absolute lymphocyte countOrd ered By: Anurag Irene on 04-10-2025 Lymphocytes Auto (Unsp spec) [#/Vol] 1.25 10*3/uL 0.83-4.51 [facility] Anion gap in Serum or Plasma Ordered By: Anurag Irene on 04-10-2025 Anion gap [Moles/Vol] 9 mmol/L 5-15 [facility] Automated lymphocyte count a s percentage of total leukocytesOrdered By: Anurag Irene on 04-10-2025 Lymphocytes/100 WBC Auto (Unsp spec) 19.5 % 19-41 [facility] BUN/creatinine ratioOrdered By: Anurag Irene on 04-10-2025 Urea nitrogen/Creatinine [Mass ratio] 7.4 mg/mg Low 10-20 [facility] Basophil percentageOrdered B y: Anurag Irene on 04-10-2025 Basophils/100 WBC (Bld) 0.3 % 0-1 [facility] Bedside Glucoseon 04-10-2025 FINGERSTICK GLU 220 mg/dL High 74-106 [facility] Comment on above: Result Comment: BRISA GEMENT OF PATIENT CARE PER NURSING PROTOCOL Performed By: #### L 501.080 ####[facility] [address] [place], [address] FINGERSTICK GLU 189 mg/dL High 74-106 [facility] Comment on above: Result Comment: BRISA GEMENT OF PATIENT CARE PER NURSING PROTOCOL Performed By: #### L 501.080 ####[facility] [address] [place], [address] Bilirubin, totalOrdered By: Anurag Irene on 04-10-2025 Bilirubin [Mass/Vol] 1.38 mg/dL High 0.00-1.30 [facility] CBC W/Diff, Automatedon Absolute Lymph 1.25 X10 3/uL Normal 0.83-4.51 [facility] Comment on above: Performed By: #### L 500.4050, L100.0100 ####[facility] [address] [place], [address] Absolute Neut 4.0 X10 3/uL Normal 2.0-7.7 [facility] Comment on above: Performed By: #### L 500.4050, L100.0100 ####[facility] [address] [place], [address] Basophils/100 WBC (Bld) 0.3 % Normal 0-1 [facility] Comment on above: Performed By: #### L 500.4050, L100.0100 ####[facility] [address] [place], [address] Eosinophils/100 WBC (Bld) 6.2 % High 0-5 [facility] Comment on above: Performed By: #### L 500.4050, L100.0100 ####[facility] [address] [place], [address] Erythrocyte distribution width (RBC) [Ratio] 15.5 % High 11.6-14.6 [facility] Comment on above: Performed By: #### L 500.4050, L100.0100 ####[facility] [address] [place], [address] Hematocrit (Bld) [Volume fraction] 22.2 % Low 40-54 [facility] Comment on above: Performed By: #### L 500.4050, L100.0100 ####[facility] [address] [place], [address] Hemoglobin (Bld) [Mass/Vol] 7.6 g/dL Low 13.0-16.5 [facility] Comment on above: Performed By: #### L 500.4050, L100.0100 ####[facility] [address] [place], [address] IG% 0.600 Normal 0.0-0.9 [facility] Comment on above: Result Comment: IG% - Immature Granulocytes (promyelocytes, myelocytes andmetamyelocytes) > 1% indicates that a LEFT SHIFT is Present. Performed By: #### L 500.4050, L100.0100 ####[facility] [address] [place], [address] Lymphocytes/100 WBC (Bld) 19.5 % Normal 19-41 [facility] Comment on above: Performed By: #### L 500.4050, L100.0100 ####[facility] [address] [place], [address] MCH (RBC) [Entitic mass] 30.3 pg Normal 27.0-32.0 [facility] Comment on above: Performed By: #### L 500.4050, L100.0100 ####[facility] [address] [place], [address] MCHC (RBC) [Mass/Vol] 34.2 g/dL Normal 32-36 [facility] Comment on above: Performed By: #### L 500.4050, L100.0100 ####[facility] [address] [place], [address] MCV (RBC) [Entitic vol] 88.4 fL Normal 80-94 [facility] Comment on above: Performed By: #### L 500.4050, L100.0100 ####[facility] [address] [place], [address] Monocytes/100 WBC (Bld) 10.6 % High 0-10 [facility] Comment on above: Performed By: #### L 500.4050, L100.0100 ####[facility] [address] [place], [address] Neutrophils/100 WBC (Bld) 62.8 % Normal 47-70 [facility] Comment on above: Performed By: #### L 500.4050, L100.0100 ####[facility] [address] [place], [address] Nucleated RBC (Bld) [#/Vol] 0 10*3/uL Normal 0-5 [facility] Comment on above: Performed By: #### L 500.4050, L100.0100 ####[facility] [address] [place], [address] Platelet mean volume (Bld) [Entitic vol] 11.1 fL Normal 6.2-12.0 [facility] Comment on above: Performed By: #### L 500.4050, L100.0100 ####[facility] [address] [place], [address] Platelets (Bld) [#/Vol] 114 10*3/uL Low 150-450 [facility] Comment on above: Performed By: #### L 500.4050, L100.0100 ####[facility] [address] [place], [address] RBC (Bld) [#/Vol] 2.51 10*6/uL Low 4.6-6.2 [facility] Comment on above: Performed By: #### L 500.4050, L100.0100 ####[facility] [address] [place], [address] RDW SD 49.1 fl High 35.1-43.9 [facility] Comment on above: Performed By: #### L 500.4050, L100.0100 ####[facility] [address] [place], [address] WBC (Bld) [#/Vol] 6.4 10*3/uL Normal 4.4-11.0 [facility] Comment on above: Performed By: #### L 500.4050, L100.0100 ####[facility] [address] [place], [address] Carbon dioxide, total [Moles /volume] in Central venous bloodOrdered By: Anurag Irene on 04-10-2025 CO2 [Moles/Vol] 17.8 mmol/L Low 21.0-32.0 [facility] Chloride assayOrdered By: Francois Irene on 04-10-2025 Chloride [Moles/Vol] 107 mmol/L 98-108 [facility] Metabolic Prof ilon 04-10-2025 Albumin [Mass/Vol] 2.0 g/dL Low 3.5-5.0 [facility] Comment on above: Performed By: #### L 500.4050, L100.0100 ####[facility] [address] [place], [address] Albumin/Globulin [Mass ratio] 0.7 {ratio} Low 0.9-2.4 [facility] Comment on above: Performed By: #### L 500.4050, L100.0100 ####[facility] [address] [place], [address] ALK PHOS 140 U/L High 40-129 [facility] Comment on above: Performed By: #### L 500.4050, L100.0100 ####[facility] [address] [place], [address] ALT [Catalytic activity/Vol] 22 U/L Normal <=46 [facility] Comment on above: Performed By: #### L 500.4050, L100.0100 ####[facility] [address] [place], [address] AST [Catalytic activity/Vol] 37 U/L Normal <=37 [facility] Comment on above: Performed By: #### L 500.4050, L100.0100 ####[facility] [address] [place], [address] Bilirubin [Mass/Vol] 1.38 mg/dL High 0.00-1.30 [facility] Comment on above: Performed By: #### L 500.4050, L100.0100 ####[facility] [address] [place], [address] BUN/CRE 7.4 RATIO Low 10-20 [facility] Comment on above: Performed By: #### L 500.4050, L100.0100 ####[facility] [address] [place], [address] Calcium [Mass/Vol] 8.1 mg/dL Normal 7.6-11.0 [facility] Comment on above: Performed By: #### L 500.4050, L100.0100 ####[facility] [address] [place], [address] Chloride [Moles/Vol] 107 mmol/L Normal 98-108 [facility] Comment on above: Performed By: #### L 500.4050, L100.0100 ####[facility] [address] [place], [address] CO2 [Moles/Vol] 17.8 mmol/L Low 21.0-32.0 [facility] Comment on above: Performed By: #### L 500.4050, L100.0100 ####[facility] [address] [place], [address] Creatinine [Mass/Vol] 1.16 mg/dL Normal 0.70-1.20 [facility] Comment on above: Performed By: #### L 500.4050, L100.0100 ####[facility] [address] [place], [address] ECRCL 80.17 ml/min Normal 50-250 [facility] Comment on above: Performed By: #### L 500.4050, L100.0100 ####[facility] [address] [place], [address] GAP 9 Normal 5-15 [facility] Comment on above: Performed By: #### L 500.4050, L100.0100 ####[facility] [address] [place], [address] GFR/1.73 sq M.predicted among non-blacks MDRD (S/P/Bld) [Vol rate/Area] 73 mL/min/{1.73_m2} Normal >60 [facility] Comment on above: Result Comment: mL/m in/1.73m2 CKD-EPI Creatinine Equation (2020) Performed By: #### L 500.4050, L100.0100 ####[facility] [address] [place], [address] Globulin (S) [Mass/Vol] 3.0 g/dL Normal 2.2-4.2 [facility] Comment on above: Performed By: #### L 500.4050, L100.0100 ####[facility] [address] [place], [address] Glucose [Mass/Vol] 199 mg/dL High 70-99 [facility] Comment on above: Performed By: #### L 500.4050, L100.0100 ####[facility] [address] [place], [address] Potassium [Moles/Vol] 3.3 mmol/L Normal 3.3-5.1 [facility] Comment on above: Performed By: #### L 500.4050, L100.0100 ####[facility] [address] [place], [address] Sodium [Moles/Vol] 134 mmol/L Normal 133-145 [facility] Comment on above: Performed By: #### L 500.4050, L100.0100 ####[facility] [address] [place], [address] T PROT 4.9 g/dL Low 5.9-8.4 [facility] Comment on above: Performed By: #### L 500.4050, L100.0100 ####[facility] [address] [place], [address] Urea nitrogen [Mass/Vol] 9 mg/dL Normal 4-19 [facility] Comment on above: Performed By: #### L 500.4050, L100.0100 ####[facility] [address] [place], [address] Discharge Instructionon 09-0 Discharge Instruction Normal [facility] Eosinophil percentageOrdered By: Anurag Irene on 04-10-2025 Eosinophils/100 WBC (Bld) 6.2 % High 0-5 [facility] Erythrocyte distribution wid th ratioOrdered By: Anurag Irene on 04-10-2025 Erythrocyte distribution width (RBC) [Ratio] 15.5 % High 11.6-14.6 [facility] Erythrocyte distribution wid th standard deviationOrdered By: Anurag Irene on 04-10-2025 Erythrocyte distribution width (RBC) [Ratio] 49.1 fl High 35.1-43.9 [facility] Glomerular filtration rate ( GFR) estimation/1.73 sq m using serum, plasma, or whole bOrdered By: Anurag Irene on 04-10-2025 GFR/1.73 sq M.predicted among non-blacks MDRD (S/P/Bld) [Vol rate/Area] 73 mL/min/{1.73_m2} >60 [facility] deOrdered By: Anurag Irene on 04-10-2025 Glucose [Mass/Vol] 220 mg/dL High 74-106 [facility] Hematocrit Auto (Bld) [Volum e fraction]Ordered By: Anurag Irene on 04-10-2025 Hematocrit (Bld) [Volume fraction] 22.2 % Low 40-54 [facility] Hemoglobin measurementOrdere d By: Anurag Irene on 04-10-2025 Hemoglobin (Bld) [Mass/Vol] 7.6 g/dL Low 13.0-16.5 [facility] Immature granulocytes/100 WB C Auto (Bld)Ordered By: Anurag Irene on 04-10-2025 Immature granulocytes/100 WBC (Bld) 0.600 % 0.0-0.9 [facility] MCV (mean corpuscular volume ) determinationOrdered By: Anurag Irene on 04-10-2025 MCV (RBC) [Entitic vol] 88.4 fL 80-94 [facility] Mean corpuscular hemoglobin (MCH) determinationOrdered By: Anurag Irene on 04-10-2025 MCH (RBC) [Entitic mass] 30.3 pg 27.0-32.0 [facility] Monocyte percentageOrdered B y: Anurag Irene on 04-10-2025 Monocytes/100 WBC (Bld) 10.6 % High 0-10 [facility] Neutrophil percentageOrdered By: Anurag Irene on 04-10-2025 Neutrophils/100 WBC (Bld) 62.8 % 47-70 [facility] No Panel InformationOrdered By: Anurag Irene on 04-10-2025 37 U/L <38 [facility] Platelet countOrdered By: Francois Irene on 04-10-2025 Platelets (Bld) [#/Vol] 114 10*3/uL Low 150-450 [facility] Potassium measurement (mass/ volume)Ordered By: Anurag Irene on 04-10-2025 Potassium (Unsp spec) [Mass/Vol] 3.3 mmol/L 3.3-5.1 [facility] RBC Auto (Bld) [#/Vol]Ordere d By: Anurag Irene on 04-10-2025 RBC (Bld) [#/Vol] 2.51 10*6/uL Low 4.6-6.2 [facility] Serum creatinine measurement (mass/volume)Ordered By: Anurag Irene on 04-10-2025 Creatinine [Mass/Vol] 1.16 mg/dL 0.70-1.20 [facility] Serum globulin measurementOr dered By: Anurag Irene on 04-10-2025 Globulin (S) [Mass/Vol] 3.0 g/dL 2.2-4.2 [facility] Serum glucose measurement (m ass/volume)Ordered By: Anurag Irene on 04-10-2025 Glucose [Mass/Vol] 199 mg/dL High 70-99 [facility] Serum or plasma alanine thomas otransferase (ALT) measurementOrdered By: Anurag Irene on 04-10-2025 ALT [Catalytic activity/Vol] 22 U/L <47 [facility] Serum or plasma albumin roosevelt urement (mass/volume)Ordered By: Anurag Irene on 04-10-2025 Albumin [Mass/Vol] 2.0 g/dL Low 3.5-5.0 [facility] Serum or plasma albumin/glob ulin mass ratioOrdered By: Anurag Irene on 04-10-2025 Albumin/Globulin [Mass ratio] 0.7 {ratio} Low 0.9-2.4 [facility] Serum or plasma alkaline kendrick sphatase measurementOrdered By: Anurag Irene on 04-10-2025 ALP [Catalytic activity/Vol] 140 U/L High 40-129 [facility] Serum or plasma calcium roosevelt urement (mass/volume)Ordered By: Anurag Irene on 04-10-2025 Calcium [Mass/Vol] 8.1 mg/dL 7.6-11.0 [facility] Serum or plasma urea nitroge n measurement (mass/volume)Ordered By: Anurag Irene on 04-10-2025 Urea nitrogen [Mass/Vol] 9 mg/dL 4-19 [facility] Sodium levelOrdered By: Marni Irene on 04-10-2025 Sodium [Moles/Vol] 134 mmol/L 133-145 [facility] Total proteinOrdered By: [place] Irene on 04-10-2025 Protein [Mass/Vol] 4.9 g/dL Low 5.9-8.4 [facility] White blood cell (WBC) count Ordered By: Anurag Irene on 04-10-2025 WBC (Bld) [#/Vol] 6.4 10*3/uL 4.4-11.0 [facility] Bedside Glucoseon 04-09-2025 FINGERSTICK GLU 184 mg/dL High 74-106 [facility] Comment on above: Result Comment: BRISA GEMENT OF PATIENT CARE PER NURSING PROTOCOL Performed By: #### L 501.080 ####[facility] [address] [facility] [address] FINGERSTICK GLU 234 mg/dL High [address] [facility] Comment on above: Result Comment: BRISA GEMENT OF PATIENT CARE PER NURSING PROTOCOL Performed By: #### L 501.080 ####[facility] [address] [facility] [address] FINGERSTICK GLU 201 mg/dL High 74-106 [facility] Comment on above: Result Comment: BRISA GEMENT OF PATIENT CARE PER NURSING PROTOCOL Performed By: #### L 501.080 ####[facility] [address] [facility] [address] FINGERSTICK GLU 163 mg/dL High 74-106 [facility] Comment on above: Result Comment: BRISA GEMENT OF PATIENT CARE PER NURSING PROTOCOL Performed By: #### L 501.080 ####[facility] [address] [place], [address] Bilirubin Test strip Ql (U)O rdered By: Anurag Irene on 04-09-2025 Bilirubin Ql (U) Negative Negative [facility] HH, Hemoglobin AND Hematocri ton 04-09-2025 HCT Normal 40-54 [facility] Comment on above: Result Comment: Canc elled via OM: Order edited - Discontinuing original order Performed By: #### L 100.0600 ####[facility] [address] [place], [address] HGB Normal 13.0-16.5 [facility] Comment on above: Result Comment: Canc elled via OM: Order edited - Discontinuing original order Performed By: #### L 100.0600 ####[facility] [address] [place], [address] Hematocrit (Bld) [Volume fraction] 24.8 % Low 40-54 [facility] Comment on above: Performed By: #### L 100.0600 ####[facility] [address] [place], [address] Hemoglobin (Bld) [Mass/Vol] 8.4 g/dL Low 13.0-16.5 [facility] Comment on above: Performed By: #### L 100.0600 ####[facility] [address] [place], [address] Ketones Test strip Ql (U)Ord ered By: Anurag Irene on 04-09-2025 Ketones Ql (U) Negative Negative [facility] Mucus LM Ql (Urine sed)Order ed By: Anurag Irene on 04-09-2025 Mucus Ql (Urine sed) 0 SEEN /hpf [facility] Nitrite Test strip Ql (U)Ord ered By: Anurag Irene on 04-09-2025 Nitrite Ql (U) Negative Negative [facility] Protein Test strip Ql (U)Ord ered By: Anurag Irene on 04-09-2025 Protein Ql (U) 30 mg/dl High Negative [facility] Squamous epithelial cells de tection in urine sediment by light microscopyOrdered By: Anurag Irene on 04-09-2025 Epithelial cells.squamous LM Ql (Urine sed) 0-5 SEEN /hpf 0-5 [facility] Urinalysis, Completeon 04-09 BACTERIA 2+ /hpf Normal None Seen [facility] Comment on above: Order Comment: CLEAN CATCH Performed By: #### L 400.0001 ####[facility] [address] [place], [address] EPI,SQUAMOUS 0-5 SEEN Normal 0-5 [facility] Comment on above: Order Comment: CLEAN CATCH Performed By: #### L 400.0001 ####[facility] [address] [place], [address] RBC 10-25 SEEN Normal 0-5 [facility] Comment on above: Order Comment: CLEAN CATCH Performed By: #### L 400.0001 ####[facility] [address] [place], [address] WBC 25-50 SEEN Normal 0-5 [facility] Comment on above: Order Comment: CLEAN CATCH Performed By: #### L 400.0001 ####[facility] [address] [place], [address] Mucus Ql (Urine sed) 0 SEEN Normal [facility] Comment on above: Order Comment: CLEAN CATCH Performed By: #### L 400.0001 ####[facility] [address] [place], [address] Urine Cultureon 04-09-2025 URC Culture exhibits no growth. Normal [facility] Comment on above: Performed By: #### M 100.2200 ####[facility] [address] [place], [address] Urine clarityOrdered By: [place] Irene on 04-09-2025 Clarity (U) Cloudy Clear [facility] Urine color determinationOrd ered By: Anurag Irene on 04-09-2025 Color (U) Straw Yellow [facility] Urine glucose detectionOrder ed By: Anurag Irene on 04-09-2025 Glucose Ql (U) Normal mg/dl Normal [facility] Urine leukocyte esterase det ection by dipstickOrdered By: Anurag Irene on 04-09-2025 Leukocyte esterase Test strip Ql (U) 100 /ul High Negative [facility] Urine pHOrdered By: Anurag Irene on 04-09-2025 pH (U) 7.0 [pH] 5.0 - 8.0 [facility] Urine sediment bacteria coun t by microscopy (number/high power field)Ordered By: Anurag Irene on 04-09-2025 Bacteria LM.HPF (Urine sed) [#/Area] 2 /[HPF] None Seen [facility] Urine specific gravity measu rementOrdered By: Anurag Irene on 04-09-2025 Specific gravity (U) [Rel density] 1.010 1.002-1.030 [facility] Urine urobilinogen measureme ntOrdered By: Anurag Irene on 04-09-2025 Urobilinogen Ql (U) Normal mg/dl Normal [facility] White blood cell countOrdere d By: Anurag Irene on 04-09-2025 White blood cell count 25-50 SEEN /hpf 0-5 [facility] Ammoniaon 04-08-2025 Ammonia (P) [Moles/Vol] 105.0 umol/L High 16-60 [facility] Comment on above: Performed By: #### L 100.0100, L503.5510, L500.4050 ####[facility] [address] [place], [place], [address] Bedside Glucoseon 04-08-2025 FINGERSTICK GLU 186 mg/dL High 74-106 [facility] Comment on above: Result Comment: BRISA MOROCHO OF PATIENT CARE PER NURSING PROTOCOL Performed By: #### L 501.080 ####[facility] [address] [place], [place], [address] FINGERSTICK GLU 224 mg/dL High 74-106 [facility] Comment on above: Result Comment: BRISA GEMENT OF PATIENT CARE PER NURSING PROTOCOL Performed By: #### L 501.080 ####[facility] [address] [place], [address] FINGERSTICK GLU 244 mg/dL High 74-106 [facility] Comment on above: Result Comment: BRISA GEMENT OF PATIENT CARE PER NURSING PROTOCOL Performed By: #### L 501.080 ####[facility] [address] [place], [address] FINGERSTICK GLU 113 mg/dL High 74-106 [facility] Comment on above: Result Comment: BRISA GEMENT OF PATIENT CARE PER NURSING PROTOCOL Performed By: #### L 501.080 ####[facility] [address] [place], [address] FINGERSTICK GLU 145 mg/dL High 74-106 [facility] Comment on above: Result Comment: BRISA GEMENT OF PATIENT CARE PER NURSING PROTOCOL Performed By: #### L 501.080 ####[facility] [address] [place], [address] CBC W/Diff, Automatedon 09-0 5-5 Absolute Lymph 1.47 X10 3/uL Normal 0.83-4.51 [facility] Comment on above: Performed By: #### L 100.0100, L503.5510, L500.4050 ####[facility] [address] [place], [address] Absolute Neut 3.9 X10 3/uL Normal 2.0-7.7 [facility] Comment on above: Performed By: #### L 100.0100, L503.5510, L500.4050 ####[facility] [address] [place], [address] Basophils/100 WBC (Bld) 0.8 % Normal 0-1 [facility] Comment on above: Performed By: #### L 100.0100, L503.5510, L500.4050 ####[facility] [address] [place], [address] Eosinophils/100 WBC (Bld) 5.7 % High 0-5 [facility] Comment on above: Performed By: #### L 100.0100, L503.5510, L500.4050 ####[facility] [address] [place], [address] Erythrocyte distribution width (RBC) [Ratio] 15.8 % High 11.6-14.6 [facility] Comment on above: Performed By: #### L 100.0100, L503.5510, L500.4050 ####[facility] [address] [place], [address] Hematocrit (Bld) [Volume fraction] 27.5 % Low 40-54 [facility] Comment on above: Performed By: #### L 100.0100, L503.5510, L500.4050 ####[facility] [address] [place], [address] Hemoglobin (Bld) [Mass/Vol] 9.0 g/dL Low 13.0-16.5 [facility] Comment on above: Performed By: #### L 100.0100, L503.5510, L500.4050 ####[facility] [address] [place], [address] IG% 0.500 Normal 0.0-0.9 [facility] Comment on above: Result Comment: IG% - Immature Granulocytes (promyelocytes, myelocytes andmetamyelocytes) > 1% indicates that a LEFT SHIFT is Present. Performed By: #### L 100.0100, L503.5510, L500.4050 ####[facility] [address] [place], [address] Lymphocytes/100 WBC (Bld) 22.5 % Normal 19-41 [facility] Comment on above: Performed By: #### L 100.0100, L503.5510, L500.4050 ####[facility] [address] [place], [address] MCH (RBC) [Entitic mass] 30.6 pg Normal 27.0-32.0 [facility] Comment on above: Performed By: #### L 100.0100, L503.5510, L500.4050 ####[facility] [address] [place], [address] MCHC (RBC) [Mass/Vol] 32.7 g/dL Normal 32-36 [facility] Comment on above: Performed By: #### L 100.0100, L503.5510, L500.4050 ####[facility] [address] [place], [address] MCV (RBC) [Entitic vol] 93.5 fL Normal 80-94 [facility] Comment on above: Performed By: #### L 100.0100, L503.5510, L500.4050 ####[facility] [address] [place], [address] Monocytes/100 WBC (Bld) 10.7 % High 0-10 [facility] Comment on above: Performed By: #### L 100.0100, L503.5510, L500.4050 ####[facility] [address] [place], [address] Neutrophils/100 WBC (Bld) 59.8 % Normal 47-70 [facility] Comment on above: Performed By: #### L 100.0100, L503.5510, L500.4050 ####[facility] [address] [place], [address] Nucleated RBC (Bld) [#/Vol] 0 10*3/uL Normal 0-5 [facility] Comment on above: Performed By: #### L 100.0100, L503.5510, L500.4050 ####[facility] [address] [place], [address] Platelet mean volume (Bld) [Entitic vol] 10.3 fL Normal 6.2-12.0 [facility] Comment on above: Performed By: #### L 100.0100, L503.5510, L500.4050 ####[facility] [address] [place], [address] Platelets (Bld) [#/Vol] 124 10*3/uL Low 150-450 [facility] Comment on above: Performed By: #### L 100.0100, L503.5510, L500.4050 ####[facility] [address] [place], [address] RBC (Bld) [#/Vol] 2.94 10*6/uL Low 4.6-6.2 [facility] Comment on above: Performed By: #### L 100.0100, L503.5510, L500.4050 ####[facility] [address] [place], [address] RDW SD 53.2 fl High 35.1-43.9 [facility] Comment on above: Performed By: #### L 100.0100, L503.5510, L500.4050 ####[facility] [address] [place], [address] WBC (Bld) [#/Vol] 6.5 10*3/uL Normal 4.4-11.0 [facility] Comment on above: Performed By: #### L 100.0100, L503.5510, L500.4050 ####[facility] [address] [place], [address] Comprehensive Metabolic Prof [facility] 04-08-2025 Albumin [Mass/Vol] 2.1 g/dL Low 3.5-5.0 [facility] Comment on above: Performed By: #### L 100.0100, L503.5510, L500.4050 ####[facility] [address] [place], [address] Albumin/Globulin [Mass ratio] 0.7 {ratio} Low 0.9-2.4 [facility] Comment on above: Performed By: #### L 100.0100, L503.5510, L500.4050 ####[facility] [address] [place], [address] ALK PHOS 146 U/L High 40-129 [facility] Comment on above: Performed By: #### L 100.0100, L503.5510, L500.4050 ####[facility] [address] [place], [address] ALT [Catalytic activity/Vol] 22 U/L Normal <=46 [facility] Comment on above: Performed By: #### L 100.0100, L503.5510, L500.4050 ####[facility] [address] [place], [address] AST [Catalytic activity/Vol] 44 U/L High <=37 [facility] Comment on above: Performed By: #### L 100.0100, L503.5510, L500.4050 ####[facility] [address] [place], [address] Bilirubin [Mass/Vol] 1.80 mg/dL High 0.00-1.30 [facility] [place] Comment on above: Performed By: #### L 100.0100, L503.5510, L500.4050 ####[facility] [address] [place], [address] BUN/CRE 10.0 RATIO Normal 10-20 [facility] Comment on above: Performed By: #### L 100.0100, L503.5510, L500.4050 ####[facility] [address] [place], [address] Calcium [Mass/Vol] 8.4 mg/dL Normal 7.6-11.0 [facility] Comment on above: Performed By: #### L 100.0100, L503.5510, L500.4050 ####[facility] [address] [place], [address] Chloride [Moles/Vol] 111 mmol/L High 98-108 [facility] [place] Comment on above: Performed By: #### L 100.0100, L503.5510, L500.4050 ####[facility] [address] [place], [address] CO2 [Moles/Vol] 16.1 mmol/L Low 21.0-32.0 [facility] Comment on above: Performed By: #### L 100.0100, L503.5510, L500.4050 ####[facility] [address] [place], [address] Creatinine [Mass/Vol] 1.00 mg/dL Normal 0.70-1.20 [facility] Comment on above: Performed By: #### L 100.0100, L503.5510, L500.4050 ####[facility] [address] [place], [address] ECRCL 92.41 ml/min Normal 50-250 [facility] Comment on above: Performed By: #### L 100.0100, L503.5510, L500.4050 ####[facility] [address] [place], [address] GAP 8 Normal 5-15 [facility] Comment on above: Performed By: #### L 100.0100, L503.5510, L500.4050 ####[facility] [address] [place], [address] GFR/1.73 sq M.predicted among non-blacks MDRD (S/P/Bld) [Vol rate/Area] 87 mL/min/{1.73_m2} Normal >60 [facility] Comment on above: Result Comment: mL/m in/1.73m2 CKD-EPI Creatinine Equation (2020) Performed By: #### L 100.0100, L503.5510, L500.4050 ####[facility] [address] [place], [address] Globulin (S) [Mass/Vol] 3.2 g/dL Normal 2.2-4.2 [facility] Comment on above: Performed By: #### L 100.0100, L503.5510, L500.4050 ####[facility] [address] [place], [address] Glucose [Mass/Vol] 113 mg/dL High 70-99 [facility] Comment on above: Performed By: #### L 100.0100, L503.5510, L500.4050 ####[facility] [address] [place], [address] Potassium [Moles/Vol] 3.9 mmol/L Normal 3.3-5.1 [facility] Comment on above: Performed By: #### L 100.0100, L503.5510, L500.4050 ####[facility] [address] [place], [address] Sodium [Moles/Vol] 135 mmol/L Normal 133-145 [facility] Comment on above: Performed By: #### L 100.0100, L503.5510, L500.4050 ####[facility] [address] [place], [address] T PROT 5.4 g/dL Low 5.9-8.4 [facility] Comment on above: Performed By: #### L 100.0100, L503.5510, L500.4050 ####[facility] [address] [place], [address] Urea nitrogen [Mass/Vol] 10 mg/dL Normal 4-19 [facility] Comment on above: Performed By: #### L 100.0100, L503.5510, L500.4050 ####[facility] [address] [place], [address] L509.7001on 04-08-2025 Procalcitonin 0.09 ng/mL Normal <=0.10 [facility] Comment on above: Result Comment: Inte rpretation:<0.10-0.25 ng/mL: Antibiotic therapy discouraged. Bacterialinfection unlikely.0.25-0.50 ng/mL: Antibiotic therapy encouraged. Bacterialinfection possible.>0.50 ng/mL: Antibiotic therapy strongly encouraged.Suggestive of presence of bacterial infection.PCT should always be interpreted in the clinical context ofthe patient. Therefore, clinicians should use the PCTresults in conjunction with other laboratory findings andclinical signs of the patient. Performed By: #### L 509.7001 ####[facility] [address] [place], [address] M100.019on 04-08-2025 M100.019 Negative Normal [facility] Comment on above: Performed By: #### M 100.019, M100.638 ####[facility] [address] [place], [address] RESPIRATORY PANEL MOLECULARo n 04-08-2025 RP PANEL Normal [facility] Comment on above: Performed By: #### M 100.019, M100.638 ####[facility] [address] [place], [address] Venous blood ammonia measure mentOrdered By: Maria Guadalupe Shore on 04-08-2025 Ammonia (P) [Moles/Vol] 105.0 umol/L High 16-60 [facility] 12 Lead EKGon 04-07-2025 12 Lead EKG Normal [facility] Absolute lymphocyte countOrd ered By: Rachel Joiner on 04-07-2025 Lymphocytes Auto (Unsp spec) [#/Vol] 1.32 10*3/uL 0.83-4.51 [facility] Ammoniaon 04-07-2025 Ammonia (P) [Moles/Vol] 143.0 umol/L High 16-60 [facility] Comment on above: Performed By: #### L 501.2450, L500.3400, L100.0100, L500.2500, L503.5510 ####[facility] [address] [place], [address] Anion gap in Serum or Plasma Ordered By: Rachel Joiner on 04-07-2025 Anion gap [Moles/Vol] 9 mmol/L 5-15 [facility] Automated lymphocyte count a s percentage of total leukocytesOrdered By: Rachel Joiner on 04-07-2025 Lymphocytes/100 WBC Auto (Unsp spec) 16.8 % Low 19-41 [facility] BUN/creatinine ratioOrdered By: Rachel Joiner on 04-07-2025 Urea nitrogen/Creatinine [Mass ratio] 10.5 mg/mg 10-20 [facility] Basic Metabolic Profile (BMP )on 04-07-2025 BUN/CRE 10.5 RATIO Normal - [facility] Comment on above: Performed By: #### L 501.2450, L500.3400, L100.0100, L500.2500, L503.5510 ####[facility] [address] [place], [address] Calcium [Mass/Vol] 8.6 mg/dL Normal 7.6-11.0 [facility] Comment on above: Performed By: #### L 501.2450, L500.3400, L100.0100, L500.2500, L503.5510 ####[facility] [address] [place], [address] Chloride [Moles/Vol] 110 mmol/L High 98-108 [facility] [place] Comment on above: Performed By: #### L 501.2450, L500.3400, L100.0100, L500.2500, L503.5510 ####[facility] [address] [place], [address] CO2 [Moles/Vol] 16.9 mmol/L Low 21.0-32.0 [facility] Comment on above: Performed By: #### L 501.2450, L500.3400, L100.0100, L500.2500, L503.5510 ####[facility] [address] [place], [address] Creatinine [Mass/Vol] 1.04 mg/dL Normal 0.70-1.20 [facility] Comment on above: Performed By: #### L 501.2450, L500.3400, L100.0100, L500.2500, L503.5510 ####[facility] [address] [place], [address] GAP 9 Normal 5-15 [facility] Comment on above: Performed By: #### L 501.2450, L500.3400, L100.0100, L500.2500, L503.5510 ####[facility] [address] [place], [address] GFR/1.73 sq M.predicted among non-blacks MDRD (S/P/Bld) [Vol rate/Area] 83 mL/min/{1.73_m2} Normal >60 [facility] Comment on above: Result Comment: mL/m in/1.73m2 CKD-EPI Creatinine Equation (2020) Performed By: #### L 501.2450, L500.3400, L100.0100, L500.2500, L503.5510 ####[facility] [address] [place], [address] Glucose [Mass/Vol] 106 mg/dL High 70-99 [facility] Comment on above: Performed By: #### L 501.2450, L500.3400, L100.0100, L500.2500, L503.5510 ####[facility] [address] [place], [address] Potassium [Moles/Vol] 4.0 mmol/L Normal 3.3-5.1 [facility] Comment on above: Performed By: #### L 501.2450, L500.3400, L100.0100, L500.2500, L503.5510 ####[facility] [address] [place], [address] Sodium [Moles/Vol] 136 mmol/L Normal 133-145 [facility] Comment on above: Performed By: #### L 501.2450, L500.3400, L100.0100, L500.2500, L503.5510 ####[facility] [address] [place], [address] Urea nitrogen [Mass/Vol] 11 mg/dL Normal 4-19 [facility] Comment on above: Performed By: #### L 501.2450, L500.3400, L100.0100, L500.2500, L503.5510 ####[facility] [address] [place], [address] Basophil percentageOrdered B y: Rachel Joiner on 04-07-2025 Basophils/100 WBC (Bld) 0.6 % 0-1 [facility] Bedside Glucoseon 04-07-2025 FINGERSTICK GLU 81 mg/dL Normal 74-106 [facility] Comment on above: Result Comment: BRISA MOROCHO OF PATIENT CARE PER NURSING PROTOCOL Performed By: #### L 501.080 ####[facility] [address] [place], [address] Bilirubin Test strip Ql (U)O rdered By: Rachel Joiner on 04-07-2025 Bilirubin Ql (U) Negative Negative [facility] Bilirubin directOrdered By: Rachel Joiner on 04-07-2025 Bilirubin.direct [Mass/Vol] 1.11 mg/dL High 0.00-0.30 [facility] Bilirubin, totalOrdered By: Rachel Joiner on 04-07-2025 Bilirubin [Mass/Vol] 1.76 mg/dL High 0.00-1.30 [facility] [place] CBC W/Diff, Automatedon Absolute Lymph 1.32 X10 3/uL Normal 0.83-4.51 [facility] Comment on above: Performed By: #### L 501.2450, L500.3400, L100.0100, L500.2500, L503.5510 ####[facility] [address] [place], [address] Absolute Neut 5.3 X10 3/uL Normal 2.0-7.7 [facility] Comment on above: Performed By: #### L 501.2450, L500.3400, L100.0100, L500.2500, L503.5510 ####[facility] [address] [place], [address] Basophils/100 WBC (Bld) 0.6 % Normal 0-1 [facility] Comment on above: Performed By: #### L 501.2450, L500.3400, L100.0100, L500.2500, L503.5510 ####[facility] [address] [place], [address] Eosinophils/100 WBC (Bld) 5.2 % High 0-5 [facility] Comment on above: Performed By: #### L 501.2450, L500.3400, L100.0100, L500.2500, L503.5510 ####[facility] [address] [place], [address] Erythrocyte distribution width (RBC) [Ratio] 15.5 % High 11.6-14.6 [facility] Comment on above: Performed By: #### L 501.2450, L500.3400, L100.0100, L500.2500, L503.5510 ####[facility] [address] [place], [address] Hematocrit (Bld) [Volume fraction] 27.7 % Low 40-54 [facility] Comment on above: Performed By: #### L 501.2450, L500.3400, L100.0100, L500.2500, L503.5510 ####[facility] [address] [place], [address] Hemoglobin (Bld) [Mass/Vol] 9.1 g/dL Low 13.0-16.5 [facility] [facility] Comment on above: Performed By: #### L 501.2450, L500.3400, L100.0100, L500.2500, L503.5510 ####[facility] [address] [place], [address] IG% 0.500 Normal 0.0-0.9 [facility] Comment on above: Result Comment: IG% - Immature Granulocytes (promyelocytes, myelocytes andmetamyelocytes) > 1% indicates that a LEFT SHIFT is Present. Performed By: #### L 501.2450, L500.3400, L100.0100, L500.2500, L503.5510 ####[facility] [address] [place], [address] Lymphocytes/100 WBC (Bld) 16.8 % Low 19-41 [facility] Comment on above: Performed By: #### L 501.2450, L500.3400, L100.0100, L500.2500, L503.5510 ####[facility] [address] [place], [address] MCH (RBC) [Entitic mass] 29.7 pg Normal 27.0-32.0 [facility] Comment on above: Performed By: #### L 501.2450, L500.3400, L100.0100, L500.2500, L503.5510 ####[facility] [address] [place], [address] MCHC (RBC) [Mass/Vol] 32.9 g/dL Normal 32-36 [facility] Comment on above: Performed By: #### L 501.2450, L500.3400, L100.0100, L500.2500, L503.5510 ####[facility] [address] [place], [address] MCV (RBC) [Entitic vol] 90.5 fL Normal 80-94 [facility] Comment on above: Performed By: #### L 501.2450, L500.3400, L100.0100, L500.2500, L503.5510 ####[facility] [address] [place], [address] Monocytes/100 WBC (Bld) 9.9 % Normal 0-10 [facility] Comment on above: Performed By: #### L 501.2450, L500.3400, L100.0100, L500.2500, L503.5510 ####[facility] [address] [place], [address] Neutrophils/100 WBC (Bld) 67.0 % Normal 47-70 [facility] Comment on above: Performed By: #### L 501.2450, L500.3400, L100.0100, L500.2500, L503.5510 ####[facility] [address] [place], [address] Nucleated RBC (Bld) [#/Vol] 0 10*3/uL Normal 0-5 [facility] Comment on above: Performed By: #### L 501.2450, L500.3400, L100.0100, L500.2500, L503.5510 ####[facility] [address] [place], [address] Platelet mean volume (Bld) [Entitic vol] 10.8 fL Normal 6.2-12.0 [facility] Comment on above: Performed By: #### L 501.2450, L500.3400, L100.0100, L500.2500, L503.5510 ####[facility] [address] [place], [address] Platelets (Bld) [#/Vol] 164 10*3/uL Normal 150-450 [facility] Comment on above: Performed By: #### L 501.2450, L500.3400, L100.0100, L500.2500, L503.5510 ####[facility] [address] [place], [address] RBC (Bld) [#/Vol] 3.06 10*6/uL Low 4.6-6.2 [facility] Comment on above: Performed By: #### L 501.2450, L500.3400, L100.0100, L500.2500, L503.5510 ####[facility] [address] [place], [address] RDW SD 50.8 fl High 35.1-43.9 [facility] Comment on above: Performed By: #### L 501.2450, L500.3400, L100.0100, L500.2500, L503.5510 ####[facility] [address] [place], [address] WBC (Bld) [#/Vol] 7.9 10*3/uL Normal 4.4-11.0 [facility] Comment on above: Performed By: #### L 501.2450, L500.3400, L100.0100, L500.2500, L503.5510 ####[facility] [address] [place], [address] Carbon dioxide, total [Moles /volume] in Central venous bloodOrdered By: Rachel Joiner on 04-07-2025 CO2 [Moles/Vol] 16.9 mmol/L Low 21.0-32.0 [facility] Chloride assayOrdered By: Brendan Joiner on 04-07-2025 Chloride [Moles/Vol] 110 mmol/L High 98-108 [facility] [place] Emergency Department Summary on 04-07-2025 Emergency Department Summary Normal [facility] Eosinophil percentageOrdered By: Rachel Joiner on 04-07-2025 Eosinophils/100 WBC (Bld) 5.2 % High 0-5 [facility] Erythrocyte distribution wid th ratioOrdered By: Rachel Joiner on 04-07-2025 Erythrocyte distribution width (RBC) [Ratio] 15.5 % High 11.6-14.6 [facility] Erythrocyte distribution wid th standard deviationOrdered By: Rachel Joiner on 04-07-2025 Erythrocyte distribution width (RBC) [Ratio] 50.8 fl High 35.1-43.9 [facility] Glomerular filtration rate ( GFR) estimation/1.73 sq m using serum, plasma, or whole bOrdered By: Rachel Joiner on 04-07-2025 GFR/1.73 sq M.predicted among non-blacks MDRD (S/P/Bld) [Vol rate/Area] 83 mL/min/{1.73_m2} >60 [facility] Glucose measurement at bedsi deOrdered By: ED PROVIDER on 04-07-2025 Glucose [Mass/Vol] 81 mg/dL 74-106 [facility] H AND P Exam - Hospitaliston 04-07-2025 H&P Exam - Hospitalist Normal [facility] Hematocrit Auto (Bld) [Volum e fraction]Ordered By: Rachel Joiner on 04-07-2025 Hematocrit (Bld) [Volume fraction] 27.7 % Low 40-54 [facility] Hemoglobin measurementOrdere d By: Rachel Joiner on 04-07-2025 Hemoglobin (Bld) [Mass/Vol] 9.1 g/dL Low 13.0-16.5 [facility] Immature granulocytes/100 WB C Auto (Bld)Ordered By: Rachel Joiner on 04-07-2025 Immature granulocytes/100 WBC (Bld) 0.500 % 0.0-0.9 [facility] Ketones Test strip Ql (U)Ord ered By: Rachel Joiner on 04-07-2025 Ketones Ql (U) Negative Negative [facility] Lipaseon 04-07-2025 Lipase [Catalytic activity/Vol] 47 U/L Normal 13-75 [facility] Comment on above: Result Comment: Siddhartha bhat note:LIPASE revised reference range effective 22.New Lipase methodology. Expected to produce lower valuesthan the previous assay method.NEW Reference Range: 13 - 75 U/L Performed By: #### L 501.2450, L500.3400, L100.0100, L500.2500, L503.5510 ####[facility] [address] [place], [address] Liver Profileon 04-07-2025 Albumin [Mass/Vol] 2.4 g/dL Low 3.5-5.0 [facility] Comment on above: Performed By: #### L 501.2450, L500.3400, L100.0100, L500.2500, L503.5510 ####[facility] [address] [place], [address] ALK PHOS 176 U/L High 40-129 [facility] Comment on above: Performed By: #### L 501.2450, L500.3400, L100.0100, L500.2500, L503.5510 ####[facility] [address] [place], [address] ALT [Catalytic activity/Vol] 23 U/L Normal <=46 [facility] Comment on above: Performed By: #### L 501.2450, L500.3400, L100.0100, L500.2500, L503.5510 ####[facility] [address] [place], [address] AST [Catalytic activity/Vol] 48 U/L High <=37 [facility] Comment on above: Performed By: #### L 501.2450, L500.3400, L100.0100, L500.2500, L503.5510 ####[facility] [address] [place], [address] Bilirubin [Mass/Vol] 1.76 mg/dL High 0.00-1.30 [facility] [place] Comment on above: Performed By: #### L 501.2450, L500.3400, L100.0100, L500.2500, L503.5510 ####[facility] [address] [place], [address] Bilirubin.direct [Mass/Vol] 1.11 mg/dL High 0.00-0.30 [facility] Comment on above: Performed By: #### L 501.2450, L500.3400, L100.0100, L500.2500, L503.5510 ####[facility] [address] [place], [address] Globulin (S) [Mass/Vol] 3.8 g/dL Normal 2.2-4.2 [facility] Comment on above: Performed By: #### L 501.2450, L500.3400, L100.0100, L500.2500, L503.5510 ####[facility] [address] [place], [address] T PROT 6.1 g/dL Normal 5.9-8.4 [facility] Comment on above: Performed By: #### L 501.2450, L500.3400, L100.0100, L500.2500, L503.5510 ####[facility] [address] [place], [address] MCV (mean corpuscular volume ) determinationOrdered By: Rachel Joiner on 04-07-2025 MCV (RBC) [Entitic vol] 90.5 fL 80-94 [facility] Magnesiumon 04-07-2025 Magnesium [Mass/Vol] 1.7 mg/dL Normal 1.5-2.2 [facility] [place] Comment on above: Order Comment: Comme nts: May add to ED labsComments: may add to ED labs Performed By: #### L 501.5200, L501.2300 ####[facility] [address] [place], [address] Magnesium measurement (mass/ volume)Ordered By: Maria Guadalupe Shore on 04-07-2025 Magnesium (Unsp spec) [Mass/Vol] 1.7 mg/dL 1.5-2.2 [facility] Mean corpuscular hemoglobin (MCH) determinationOrdered By: Rachel Joiner on 04-07-2025 MCH (RBC) [Entitic mass] 29.7 pg 27.0-32.0 [facility] Monocyte percentageOrdered B y: Rachel Joiner on 04-07-2025 Monocytes/100 WBC (Bld) 9.9 % 0-10 [facility] Mucus LM Ql (Urine sed)Order ed By: Rachel Joiner on 04-07-2025 Mucus Ql (Urine sed) 0 SEEN /hpf [facility] Neutrophil percentageOrdered By: Rachel Joiner on 04-07-2025 Neutrophils/100 WBC (Bld) 67.0 % 47-70 [facility] Nitrite Test strip Ql (U)Ord ered By: Rachel Joiner on 04-07-2025 Nitrite Ql (U) Negative Negative [facility] No Panel InformationOrdered By: Rachel Joiner on 04-07-2025 48 U/L High <38 [facility] Phosphoruson 04-07-2025 Phosphate [Mass/Vol] 3.0 mg/dL Normal 2.7-4.5 [facility] [place] Comment on above: Order Comment: Comme nts: May add to ED labsComments: may add to ED labs Performed By: #### L 501.5200, L501.2300 ####[facility] [address] [place], [address] Platelet countOrdered By: Brendan Joiner on 04-07-2025 Platelets (Bld) [#/Vol] 164 10*3/uL 150-450 [facility] Potassium measurement (mass/ volume)Ordered By: Rachel Joiner on 04-07-2025 Potassium (Unsp spec) [Mass/Vol] 4.0 mmol/L 3.3-5.1 [facility] Procalcitonin [Mass/volume] in Serum or Plasma by ImmunoassayOrdered By: Maria Guadalupe Shore on 04-07-2025 Procalcitonin IA [Mass/Vol] 0.09 ng/mL <0.11 [facility] Protein Test strip Ql (U)Ord ered By: Rachel Joiner on 04-07-2025 Protein Ql (U) 100 mg/dl High Negative [facility] RBC Auto (Bld) [#/Vol]Ordere d By: Rachel Joiner on 04-07-2025 RBC (Bld) [#/Vol] 3.06 10*6/uL Low 4.6-6.2 [facility] Respiratory pathogens detect ion panel by molecular detection methodOrdered By: Maria Guadalupe Shore on 04-07-2025 Respiratory pathogens DNA and RNA panel ANANTH+probe (Resp) Rhinovirus Abnormal [facility] [id number] By: Maria Guadalupe Shore on 04-07-2025 SARS-CoV-2 (COVID-19) RNA ANANTH+probe Ql (Unsp spec) [facility] Serum creatinine measurement (mass/volume)Ordered By: Rachel Joiner on 04-07-2025 Creatinine [Mass/Vol] 1.04 mg/dL 0.70-1.20 [facility] Serum globulin measurementOr dered By: Rachel Joiner on 04-07-2025 Globulin (S) [Mass/Vol] 3.8 g/dL 2.2-4.2 [facility] Serum glucose measurement (m ass/volume)Ordered By: Rachel Joiner on 04-07-2025 Glucose [Mass/Vol] 106 mg/dL High 70-99 [facility] Serum or plasma alanine thomas otransferase (ALT) measurementOrdered By: Rachel Joiner on 04-07-2025 ALT [Catalytic activity/Vol] 23 U/L <47 [facility] Serum or plasma albumin roosevelt urement (mass/volume)Ordered By: Rachel Joiner on 04-07-2025 Albumin [Mass/Vol] 2.4 g/dL Low 3.5-5.0 [facility] Serum or plasma alkaline kendrick sphatase measurementOrdered By: Rachel Joiner on 04-07-2025 ALP [Catalytic activity/Vol] 176 U/L High 40-129 [facility] Serum or plasma calcium roosevelt urement (mass/volume)Ordered By: Rachel Joiner on 04-07-2025 Calcium [Mass/Vol] 8.6 mg/dL 7.6-11.0 [facility] Serum or plasma urea nitroge n measurement (mass/volume)Ordered By: Rachel Joiner on 04-07-2025 Urea nitrogen [Mass/Vol] 11 mg/dL 4-19 [facility] Sodium levelOrdered By: Kateryna Joiner on 04-07-2025 Sodium [Moles/Vol] 136 mmol/L 133-145 [facility] Squamous epithelial cells de tection in urine sediment by light microscopyOrdered By: Rachel Joiner on 04-07-2025 Epithelial cells.squamous LM Ql (Urine sed) 0 SEEN /hpf 0-5 [facility] Total proteinOrdered By: Shi Joiner on 04-07-2025 Protein [Mass/Vol] 6.1 g/dL 5.9-8.4 [facility] Urinalysis, Completeon 04-07 BACTERIA 1+ /hpf Normal None Seen [facility] Comment on above: Order Comment: CLEAN CATCH Performed By: #### L 400.0001 ####[facility] [address] [place], [place], [id number] RBC 50-100 SEEN Normal 0-5 [facility] Comment on above: Order Comment: CLEAN CATCH Performed By: #### L 400.0001 ####[facility] [address] [place], [address] WBC 0-5 SEEN Normal 0-5 [facility] Comment on above: Order Comment: CLEAN CATCH Performed By: #### L 400.0001 ####[facility] [address] [place], [address] EPI,SQUAMOUS 0 SEEN Normal 0-5 [facility] Comment on above: Order Comment: CLEAN CATCH Performed By: #### L 400.0001 ####[facility] [address] [place], [address] Mucus Ql (Urine sed) 0 SEEN Normal [facility] [place] Comment on above: Order Comment: CLEAN CATCH Performed By: #### L 400.0001 ####[facility] [address] [place], [place], [id number] Urine clarityOrdered By: Shi Joiner on 04-07-2025 Clarity (U) Sl. Cloudy Clear [facility] Urine color determinationOrd ered By: Rachel Joiner on 04-07-2025 Color (U) Yellow Yellow [facility] Urine cultureOrdered By: Shi Joiner on 04-07-2025 Bacteria identified Cx Nom (U) Culture exhibits no growth. [facility] Urine glucose detectionOrder ed By: Rachel Joiner on 04-07-2025 Glucose Ql (U) Normal mg/dl Normal [facility] Urine leukocyte esterase det ection by dipstickOrdered By: Rachel Joiner on 04-07-2025 Leukocyte esterase Test strip Ql (U) 500 /ul High Negative [facility] Urine pHOrdered By: Rachel silva on 04-07-2025 pH (U) 6.5 [pH] 5.0 - 8.0 [facility] Urine sediment bacteria coun t by microscopy (number/high power field)Ordered By: Rachel Joiner on 04-07-2025 Bacteria LM.HPF (Urine sed) [#/Area] 1 /[HPF] None Seen [facility] Urine specific gravity measu rementOrdered By: Rachel Joiner on 04-07-2025 Specific gravity (U) [Rel density] 1.015 1.002-1.030 [facility] Urine urobilinogen measureme ntOrdered By: Rachel Joiner on 04-07-2025 Urobilinogen Ql (U) Normal mg/dl Normal [facility] Venous blood ammonia measure mentOrdered By: Rachel Joiner on 04-07-2025 Ammonia (P) [Moles/Vol] 143.0 umol/L High 16-60 [facility] White blood cell (WBC) count Ordered By: Rachel Joiner on 04-07-2025 WBC (Bld) [#/Vol] 7.9 10*3/uL 4.4-11.0 [facility] White blood cell countOrdere d By: Rachel Joiner on 04-07-2025 White blood cell count 0-5 SEEN /hpf 0-5 [facility] 12 Lead EKGon 04-03-2025 12 Lead EKG Normal [facility] CBC W/Diff, Automatedon 03-06 Absolute Neut Normal 2.0-7.7 [facility] Comment on above: Result Comment: Canc elled via OM: MD Ordered Performed By: #### L 100.0100, L300.3900, L500.4050 ####[facility] [address] [place], [address] HCT Normal 40-54 [facility] Comment on above: Result Comment: Canc elled via OM: MD Ordered Performed By: #### L 100.0100, L300.3900, L500.4050 ####[facility] [address] [place], [address] HGB Normal 13.0-16.5 [facility] Comment on above: Result Comment: Canc elled via OM: MD Ordered Performed By: #### L 100.0100, L300.3900, L500.4050 ####[facility] [address] [place], [address] MCH Normal 27.0-32.0 [facility] Comment on above: Result Comment: Canc elled via OM: MD Ordered Performed By: #### L 100.0100, L300.3900, L500.4050 ####[facility] [address] [place], [address] MCHC Normal 32-36 [facility] Comment on above: Result Comment: Canc elled via OM: MD Ordered Performed By: #### L 100.0100, L300.3900, L500.4050 ####[facility] [address] [place], [address] MCV Normal 80-94 [facility] Comment on above: Result Comment: Canc elled via OM: MD Ordered Performed By: #### L 100.0100, L300.3900, L500.4050 ####[facility] [address] [place], [address] NEUT% Normal 47-70 [facility] Comment on above: Result Comment: Canc elled via OM: MD Ordered Performed By: #### L 100.0100, L300.3900, L500.4050 ####[facility] [address] [place], [address] PLT Normal 150-450 [facility] Comment on above: Result Comment: Canc elled via OM: MD Ordered Performed By: #### L 100.0100, L300.3900, L500.4050 ####[facility] [address] [place], [address] RBC Normal 4.6-6.2 [facility] Comment on above: Result Comment: Canc elled via OM: MD Ordered Performed By: #### L 100.0100, L300.3900, L500.4050 ####[facility] [address] [place], [address] RDW CV Normal 11.6-14.6 [facility] Comment on above: Result Comment: Canc elled via OM: MD Ordered Performed By: #### L 100.0100, L300.3900, L500.4050 ####[facility] [address] [place], [address] RDW SD Normal 35.1-43.9 [facility] Comment on above: Result Comment: Canc elled via OM: MD Ordered Performed By: #### L 100.0100, L300.3900, L500.4050 ####[facility] [address] [place], [address] WBC Normal 4.4-11.0 [facility] Comment on above: Result Comment: Canc elled via OM: MD Ordered Performed By: #### L 100.0100, L300.3900, L500.4050 ####[facility] [address] [place], [address] Comprehensive Metabolic Prof ilon 04-03-2025 ALB Normal 3.5-5.0 [facility] Comment on above: Result Comment: Canc elled via OM: MD Ordered Performed By: #### L 100.0100, L300.3900, L500.4050 ####[facility] [address] [place], [address] ALK PHOS Normal 40-129 [facility] Comment on above: Result Comment: Canc elled via OM: MD Ordered Performed By: #### L 100.0100, L300.3900, L500.4050 ####[facility] [address] [place], [address] ALT Normal <=46 [facility] Comment on above: Result Comment: Canc elled via OM: MD Ordered Performed By: #### L 100.0100, L300.3900, L500.4050 ####[facility] [address] [place], [address] AST Normal <=37 [facility] Comment on above: Result Comment: Canc elled via OM: MD Ordered Performed By: #### L 100.0100, L300.3900, L500.4050 ####[facility] [address] [place], [address] BUN Normal 4-19 [facility] Comment on above: Result Comment: Canc elled via OM: MD Ordered Performed By: #### L 100.0100, L300.3900, L500.4050 ####[facility] [address] [place], [address] BUN/CRE Normal 10-20 [facility] Comment on above: Result Comment: Canc elled via OM: MD Ordered Performed By: #### L 100.0100, L300.3900, L500.4050 ####[facility] [address] [place], [address] Calcium Normal 7.6-11.0 [facility] Comment on above: Result Comment: Canc elled via OM: MD Ordered Performed By: #### L 100.0100, L300.3900, L500.4050 ####[facility] [address] [place], [address] CL Normal 98-108 [facility] Comment on above: Result Comment: Canc elled via OM: MD Ordered Performed By: #### L 100.0100, L300.3900, L500.4050 ####[facility] [address] [place], [address] CO2 Normal 21.0-32.0 [facility] Comment on above: Result Comment: Canc elled via OM: MD Ordered Performed By: #### L 100.0100, L300.3900, L500.4050 ####[facility] [address] [place], [address] CREAT,SERUM Normal 0.70-1.20 [facility] Comment on above: Result Comment: Canc elled via OM: MD Ordered Performed By: #### L 100.0100, L300.3900, L500.4050 ####[facility] [address] [place], [address] eGFR Normal >60 [facility] Comment on above: Result Comment: Canc elled via OM: MD Ordered Performed By: #### L 100.0100, L300.3900, L500.4050 ####[facility] [address] [place], [address] GAP Normal 5-15 [facility] Comment on above: Result Comment: Canc elled via OM: MD Ordered Performed By: #### L 100.0100, L300.3900, L500.4050 ####[facility] [address] [place], [address] GLU Normal 70-99 [facility] Comment on above: Result Comment: Canc elled via OM: MD Ordered Performed By: #### L 100.0100, L300.3900, L500.4050 ####[facility] [address] [place], [address] Potassium Normal 3.3-5.1 [facility] Comment on above: Result Comment: Canc elled via OM: MD Ordered Performed By: #### L 100.0100, L300.3900, L500.4050 ####[facility] [address] [place], [address] T BILI Normal 0.00-1.30 [facility] Comment on above: Result Comment: Canc elled via OM: MD Ordered Performed By: #### L 100.0100, L300.3900, L500.4050 ####[facility] [address] [place], [address] T PROT Normal 5.9-8.4 [facility] Comment on above: Result Comment: Canc elled via OM: MD Ordered Performed By: #### L 100.0100, L300.3900, L500.4050 ####[facility] [address] [place], [address] Comprehensive Metabolic Profil Normal 133-145 [facility] Comment on above: Result Comment: Devonte elled via OM: MD Ordered Performed By: #### L 100.0100, L300.3900, L500.4050 ####[facility] [address] [place], [address] Emergency Department Summary on 04-03-2025 Emergency Department Summary Normal [facility] Prothrombin Time w/INRon INR Normal [facility] Comment on above: Result Comment: Devonte mckeoned via OM: MD Ordered Performed By: #### L 100.0100, L300.3900, L500.4050 ####[facility] [address] [place], [address] PROTIME Normal 11.7-14.9 [facility] Comment on above: Result Comment: Devonte mckeoned via OM: MD Ordered Performed By: #### L 100.0100, L300.3900, L500.4050 ####[facility] [address] [place], [address] Bedside Glucoseon 03-31-2025 FINGERSTICK GLU 111 mg/dL High 74-106 [facility] Comment on above: Result Comment: BRISA MOROCHO OF PATIENT CARE PER NURSING PROTOCOL Performed By: #### L 501.080 ####[facility] [address] [place], [address] Discharge Instructionon -2 Discharge Instruction Normal [facility] deOrdered By: Roby Balderas on 03-30-2025 Glucose [Mass/Vol] 111 mg/dL High 74-106 [facility] MR/POSTOP.ANEon 03-30-2025 MR/POSTOP.ANE Normal [facility] MR/BBRKJYYX0ck 03-30-2025 MR/POSTOPAN2 Normal [facility] Operative Reporton Operative Report Normal [facility] Bedside Glucoseon 03-29-2025 FINGERSTICK GLU 147 mg/dL High 74-106 [facility] Comment on above: Result Comment: BRISA MOROCHO OF PATIENT CARE PER NURSING PROTOCOL Performed By: #### L 501.080 ####[facility] [address] [place], [address] Absolute lymphocyte countOrd ered By: Day Bird on 03-11-2025 Lymphocytes Auto (Unsp spec) [#/Vol] 1.03 10*3/uL 0.83-4.51 [facility] Anion gap in Serum or Plasma Ordered By: Day Bird on 03-11-2025 Anion gap [Moles/Vol] 11 mmol/L 5-15 [facility] Automated lymphocyte count a s percentage of total leukocytesOrdered By: Day Bird on 03-11-2025 Lymphocytes/100 WBC Auto (Unsp spec) 12.6 % Low 19-41 [facility] BUN/creatinine ratioOrdered By: Day Bird on 03-11-2025 Urea nitrogen/Creatinine [Mass ratio] 12.0 mg/mg 10- [facility] Basic Metabolic Profile (BMP )on 03-11-2025 BUN/CRE 12.0 RATIO Normal - [facility] Comment on above: Performed By: #### L 500.2500, L100.0100, L501.6901 ####[facility] [address] [place], [address] Calcium [Mass/Vol] 8.0 mg/dL Normal 7.6-11.0 [facility] Comment on above: Performed By: #### L 500.2500, L100.0100, L501.6901 ####[facility] [address] [place], [address] Chloride [Moles/Vol] 96 mmol/L Low 98-108 [facility] [place] Comment on above: Performed By: #### L 500.2500, L100.0100, L501.6901 ####[facility] [address] [place], [address] CO2 [Moles/Vol] 21.4 mmol/L Normal 21.0-32.0 [facility] Comment on above: Performed By: #### L 500.2500, L100.0100, L501.6901 ####[facility] [address] [place], [address] Creatinine [Mass/Vol] 1.30 mg/dL High 0.70-1.20 [facility] Comment on above: Performed By: #### L 500.2500, L100.0100, L501.6901 ####[facility] [address] [place], [address] ECRCL 69.27 ml/min Normal 50-250 [facility] Comment on above: Performed By: #### L 500.2500, L100.0100, L501.6901 ####[facility] [address] [place], [address] GAP 11 Normal 5-15 [facility] Comment on above: Performed By: #### L 500.2500, L100.0100, L501.6901 ####[facility] [address] [place], [address] GFR/1.73 sq M.predicted among non-blacks MDRD (S/P/Bld) [Vol rate/Area] 64 mL/min/{1.73_m2} Normal >60 [facility] Comment on above: Result Comment: mL/m in/1.73m2 CKD-EPI Creatinine Equation (2020) Performed By: #### L 500.2500, L100.0100, L501.6901 ####[facility] [address] [place], [address] Glucose [Mass/Vol] 495 mg/dL Invalid Interpretation Code 70-99 [facility] Comment on above: Result Comment: Crit ical Result(s) Called DEE ROCA at: 1812 by:LAURIE??Results read back by same. Performed By: #### L 500.2500, L100.0100, L501.6901 ####[facility] [address] [place], [address] Potassium [Moles/Vol] 2.8 mmol/L Low 3.3-5.1 [facility] Comment on above: Performed By: #### L 500.2500, L100.0100, L501.6901 ####[facility] [address] [place], [address] Sodium [Moles/Vol] 128 mmol/L Low 133-145 [facility] Comment on above: Performed By: #### L 500.2500, L100.0100, L501.6901 ####[facility] [address] [place], [address] Urea nitrogen [Mass/Vol] 16 mg/dL Normal 4-19 [facility] Comment on above: Performed By: #### L 500.2500, L100.0100, L501.6901 ####[facility] [address] [place], [address] Basophil percentageOrdered B y: Day Bird on 03-11-2025 Basophils/100 WBC (Bld) 0.6 % 0-1 [facility] Bedside Glucoseon 03-11-2025 FINGERSTICK GLU 412 mg/dL High 74-106 [facility] Comment on above: Result Comment: BRISA MOROCHO OF PATIENT CARE PER NURSING PROTOCOL Performed By: #### L 501.080 ####[facility] [address] [place], [address] FINGERSTICK GLU 494 mg/dL Invalid Interpretation Code 74-106 [facility] Comment on above: Result Comment: Dr Amalia De Los SantosAGEMENT OF PATIENT CARE PER NURSING PROTOCOL Performed By: #### L 501.080 ####[facility] [address] [place], [address] FINGERSTICK GLU > 500 Invalid Interpretation Code 74-106 [facility] Comment on above: Result Comment: Dr Amalia webster FollowedMANAGEMENT OF PATIENT CARE PER NURSING PROTOCOL Performed By: #### L 501.080 ####[facility] [address] [place], [address] Beta-Hydroxbytyrateon 2024 BETA-HYDROXYBUT 0.0 mmol/L Normal 0.0-0.3 [facility] Comment on above: Performed By: #### L 500.2500, L100.0100, L501.6901 ####[facility] [address] [place], [address] Beta-hydroxybutyrateOrdered By: Day Bird on 03-11-2025 Beta hydroxybutyrate [Mass/Vol] 0.0 mmol/L 0.0-0.3 [facility] Blood manual differential co mment interpretation (narrative result)Ordered By: Day Bird on 03-11-2025 Manual differential comment Marco Antonio (Bld) [Interp] SCANNED [facility] CBC W/Diff, Automatedon PLT EST MOD DEC Normal ADEQ [facility] Comment on above: Performed By: #### L 500.2500, L100.0100, L501.6901 ####[facility] [address] [place], [address] SMEAR COMMENT SCANNED Normal [facility] Comment on above: Performed By: #### L 500.2500, L100.0100, L501.6901 ####[facility] [address] [place], [address] Platelet mean volume (Bld) [Entitic vol] 12.1 fL High 6.2-12.0 [facility] Comment on above: Performed By: #### L 500.2500, L100.0100, L501.6901 ####[facility] [address] [place], [address] Platelets (Bld) [#/Vol] 94 10*3/uL Low 150-450 [facility] Comment on above: Performed By: #### L 500.2500, L100.0100, L501.6901 ####[facility] [address] [place], [place], [address] Carbon dioxide, total [Moles /volume] in Central venous bloodOrdered By: Day Bird on 03-11-2025 CO2 [Moles/Vol] 21.4 mmol/L 21.0-32.0 [facility] Chloride assayOrdered By: Sarah Bird on 03-11-2025 Chloride [Moles/Vol] 96 mmol/L Low 98-108 [facility] [place] Emergency Department Summary on 03-11-2025 Emergency Department Summary Normal [facility] Eosinophil percentageOrdered By: Day Bird on 03-11-2025 Eosinophils/100 WBC (Bld) 5.2 % High 0-5 [facility] Erythrocyte distribution wid th ratioOrdered By: Day Bird on 03-11-2025 Erythrocyte distribution width (RBC) [Ratio] 18.8 % High 11.6-14.6 [facility] Erythrocyte distribution wid th standard deviationOrdered By: Day Bird on 03-11-2025 Erythrocyte distribution width (RBC) [Ratio] 63.4 fl High 35.1-43.9 [facility] Glomerular filtration rate ( GFR) estimation/1.73 sq m using serum, plasma, or whole bOrdered By: Day Bird on 03-11-2025 GFR/1.73 sq M.predicted among non-blacks MDRD (S/P/Bld) [Vol rate/Area] 64 mL/min/{1.73_m2} >60 [facility] deOrdered By: Alber Dunn on 03-11-2025 Glucose [Mass/Vol] 412 mg/dL High 74-106 [facility] Hematocrit Auto (Bld) [Volum e fraction]Ordered By: Day Bird on 03-11-2025 Hematocrit (Bld) [Volume fraction] 23.7 % Low 40-54 [facility] Hemoglobin measurementOrdere d By: Day Bird on 03-11-2025 Hemoglobin (Bld) [Mass/Vol] 8.0 g/dL Low 13.0-16.5 [facility] Immature granulocytes/100 WB C Auto (Bld)Ordered By: Day Bird on 03-11-2025 Immature granulocytes/100 WBC (Bld) 0.500 % 0.0-0.9 [facility] MCV (mean corpuscular volume ) determinationOrdered By: Day Bird on 03-11-2025 MCV (RBC) [Entitic vol] 92.6 fL 80-94 [facility] Mean corpuscular hemoglobin (MCH) determinationOrdered By: Day Bird on 03-11-2025 MCH (RBC) [Entitic mass] 31.3 pg 27.0-32.0 [facility] Monocyte percentageOrdered B y: Day Bird on 03-11-2025 Monocytes/100 WBC (Bld) 10.9 % High 0-10 [facility] Neutrophil percentageOrdered By: Day Bird on 03-11-2025 Neutrophils/100 WBC (Bld) 70.2 % High 47-70 [facility] Platelet countOrdered By: Sarah Bird on 03-11-2025 Platelets (Bld) [#/Vol] 94 10*3/uL Low 150-450 [facility] Platelet estimateOrdered By: Day Bird on 03-11-2025 Platelets LM Ql (Bld) MOD DEC ADEQ [facility] Potassium measurement (mass/ volume)Ordered By: Day Bird on 03-11-2025 Potassium (Unsp spec) [Mass/Vol] 2.8 mmol/L Low 3.3-5.1 [facility] RBC Auto (Bld) [#/Vol]Ordere d By: Day Bird on 03-11-2025 RBC (Bld) [#/Vol] 2.56 10*6/uL Low 4.6-6.2 [facility] Serum creatinine measurement (mass/volume)Ordered By: Day Bird on 03-11-2025 Creatinine [Mass/Vol] 1.30 mg/dL High 0.70-1.20 [facility] Serum glucose measurement (m ass/volume)Ordered By: Dayestuardo Bird on 03-11-2025 Glucose [Mass/Vol] 495 mg/dL High 70-99 [facility] Serum or plasma calcium roosevelt urement (mass/volume)Ordered By: Day Bird on 03-11-2025 Calcium [Mass/Vol] 8.0 mg/dL 7.6-11.0 [facility] Serum or plasma urea nitroge n measurement (mass/volume)Ordered By: Day Bird on 03-11-2025 Urea nitrogen [Mass/Vol] 16 mg/dL 4-19 [facility] Sodium levelOrdered By: Day Bird on 03-11-2025 Sodium [Moles/Vol] 128 mmol/L Low 133-145 [facility] White blood cell (WBC) count Ordered By: Day Bird on 03-11-2025 WBC (Bld) [#/Vol] 8.2 10*3/uL 4.4-11.0 [facility] MR/PAT.ANEon 03-10-2025 MR/PAT.ANE Normal [facility] Surgery Visit Reporton 03-10 Surgery Visit Report Normal [facility] Paracentesis with USon 03-04 Paracentesis with US Normal [facility] Culture, Anaerobic Any Sourc iliana 03-03-2025 CUAN No growth in 5 days. Normal [facility] Comment on above: Performed By: #### M 100.2900, M100.2000, L200.0200, L400.0001, M100.4001 ####[facility] [address] [place], [address] Body Fluid Cell Count+Diffon 02-28-2025 PATH COMM/BF Reviewed Normal [facility] Comment on above: Order Comment: The r eference range and other method performancespecifications have not been established for this bodyfluid. The test must be integrated into the clinicalcontext for interpretation. Result Comment: NO M ALIGNANT CELLS IDENTIFIED.Pamella Umana MD 02/28/2025 AMENDED REPORT 02/28/25 1556 PATH COMM/BF previously reported as: May follow Performed By: #### M 100.2900, M100.2000, L200.0200, L400.0001, M100.4001 ####[facility] [address] [place], [address] Absolute lymphocyte countOrd ered By: Rick Carlin on 02-27-2025 Lymphocytes Auto (Unsp spec) [#/Vol] 1.53 10*3/uL 0.83-4.51 [facility] Anion gap in Serum or Plasma Ordered By: Rick Carlin on 02-27-2025 Anion gap [Moles/Vol] 10 mmol/L 5-15 [facility] Automated lymphocyte count a s percentage of total leukocytesOrdered By: Rick Carlin on 02-27-2025 Lymphocytes/100 WBC Auto (Unsp spec) 18.6 % Low 19-41 [facility] BUN/creatinine ratioOrdered By: Rick Carlin on 02-27-2025 Urea nitrogen/Creatinine [Mass ratio] 13.0 mg/mg 10-20 [facility] Basophil percentageOrdered B y: Rick Carlin on 02-27-2025 Basophils/100 WBC (Bld) 0.9 % 0-1 [facility] Bedside Glucoseon 02-27-2025 FINGERSTICK GLU 368 mg/dL High 74-106 [facility] Comment on above: Result Comment: BRISA GEMENT OF PATIENT CARE PER NURSING PROTOCOL Performed By: #### L 501.080 ####[facility] [address] [place], [address] FINGERSTICK GLU 265 mg/dL High 74-106 [facility] Comment on above: Result Comment: BRISA GEMENT OF PATIENT CARE PER NURSING PROTOCOL Performed By: #### L 501.080 ####[facility] [address] [facility] [place], [address] Bilirubin, totalOrdered By: Rick Carlin on 02-27-2025 Bilirubin [Mass/Vol] 4.15 mg/dL High 0.00-1.30 [facility] Blood manual differential co mment interpretation (narrative result)Ordered By: Rick Carlin on 02-27-2025 Manual differential comment Marco Antonio (Bld) [Interp] SCANNED [facility] Blood polychromasia detectio n by light microscopyOrdered By: Rick Carlin on 02-27-2025 Polychromasia LM Ql (Bld) 1+ [facility] CBC W/Diff, Automatedon 02-02 Anisocytosis Ql (Bld) 2+ Normal [facility] Comment on above: Performed By: #### L 500.4050, L100.0100 ####[facility] [address] [place], [address] OVALOCYTE 1+ Normal [facility] Comment on above: Performed By: #### L 500.4050, L100.0100 ####[facility] [address] [place], [address] PLT EST SLT DEC Normal ADEQ [facility] Comment on above: Performed By: #### L 500.4050, L100.0100 ####[facility] [address] [place], [address] POLYCHROMASIA 1+ Normal [facility] Comment on above: Performed By: #### L 500.4050, L100.0100 ####[facility] [address] [place], [address] SMEAR COMMENT SCANNED Normal [facility] Comment on above: Performed By: #### L 500.4050, L100.0100 ####[facility] [address] [place], [address] Carbon dioxide, total [Moles /volume] in Central venous bloodOrdered By: Rick Carlin on 02-27-2025 CO2 [Moles/Vol] 20.8 mmol/L Low 21.0-32.0 [facility] Chloride assayOrdered By: Lissette Carlin on 02-27-2025 Chloride [Moles/Vol] 101 mmol/L 98-108 [facility] Comprehensive Metabolic Prof ilon 02-27-2025 Albumin [Mass/Vol] 2.2 g/dL Low 3.5-5.0 [facility] Comment on above: Performed By: #### L 500.4050, L100.0100 ####[facility] [address] [place], [address] Albumin/Globulin [Mass ratio] 0.7 {ratio} Low 0.9-2.4 [facility] Comment on above: Performed By: #### L 500.4050, L100.0100 ####[facility] [address] [place], [address] ALK PHOS 244 U/L High 40-129 [facility] Comment on above: Performed By: #### L 500.4050, L100.0100 ####[facility] [address] [place], [address] ALT [Catalytic activity/Vol] 43 U/L Normal <=46 [facility] Comment on above: Performed By: #### L 500.4050, L100.0100 ####[facility] [address] [place], [address] AST [Catalytic activity/Vol] 65 U/L High <=37 [facility] Comment on above: Performed By: #### L 500.4050, L100.0100 ####[facility] [address] [place], [address] Bilirubin [Mass/Vol] 4.15 mg/dL High 0.00-1.30 [facility] Comment on above: Performed By: #### L 500.4050, L100.0100 ####[facility] [address] [place], [address] BUN/CRE 13.0 RATIO Normal 10-20 [facility] Comment on above: Performed By: #### L 500.4050, L100.0100 ####[facility] [address] [place], [address] Calcium [Mass/Vol] 8.0 mg/dL Normal 7.6-11.0 [facility] Comment on above: Performed By: #### L 500.4050, L100.0100 ####[facility] [address] [place], [address] Chloride [Moles/Vol] 101 mmol/L Normal 98-108 [facility] Comment on above: Performed By: #### L 500.4050, L100.0100 ####[facility] [address] [place], [address] CO2 [Moles/Vol] 20.8 mmol/L Low 21.0-32.0 [facility] Comment on above: Performed By: #### L 500.4050, L100.0100 ####[facility] [address] [place], [address] Creatinine [Mass/Vol] 1.14 mg/dL Normal 0.70-1.20 [facility] Comment on above: Performed By: #### L 500.4050, L100.0100 ####[facility] [address] [place], [address] ECRCL 78.45 ml/min Normal 50-250 [facility] Comment on above: Performed By: #### L 500.4050, L100.0100 ####[facility] [address] [place], [address] GAP 10 Normal 5-15 [facility] Comment on above: Performed By: #### L 500.4050, L100.0100 ####[facility] [address] [place], [address] GFR/1.73 sq M.predicted among non-blacks MDRD (S/P/Bld) [Vol rate/Area] 75 mL/min/{1.73_m2} Normal >60 [facility] Comment on above: Result Comment: mL/m in/1.73m2 CKD-EPI Creatinine Equation (2020) Performed By: #### L 500.4050, L100.0100 ####[facility] [address] [place], [address] Globulin (S) [Mass/Vol] 3.3 g/dL Normal 2.2-4.2 [facility] Comment on above: Performed By: #### L 500.4050, L100.0100 ####[facility] [address] [place], [address] Glucose [Mass/Vol] 272 mg/dL High 70-99 [facility] Comment on above: Performed By: #### L 500.4050, L100.0100 ####[facility] [address] [place], [address] Potassium [Moles/Vol] 3.2 mmol/L Low 3.3-5.1 [facility] Comment on above: Performed By: #### L 500.4050, L100.0100 ####[facility] [address] [place], [address] Sodium [Moles/Vol] 131 mmol/L Low 133-145 [facility] Comment on above: Performed By: #### L 500.4050, L100.0100 ####[facility] [address] [place], [address] T PROT 5.5 g/dL Low 5.9-8.4 [facility] Comment on above: Performed By: #### L 500.4050, L100.0100 ####[facility] [address] [place], [address] Urea nitrogen [Mass/Vol] 15 mg/dL Normal 4-19 [facility] Comment on above: Performed By: #### L 500.4050, L100.0100 ####[facility] [address] [place], [address] Discharge Instructionon 02-02 Discharge Instruction Normal [facility] Eosinophil percentageOrdered By: Rick Carlin on 02-27-2025 Eosinophils/100 WBC (Bld) 6.2 % High 0-5 [facility] Erythrocyte distribution wid th ratioOrdered By: Rick Carlin on 02-27-2025 Erythrocyte distribution width (RBC) [Ratio] 21.7 % High 11.6-14.6 [facility] Erythrocyte distribution wid th standard deviationOrdered By: Rick Carlin on 02-27-2025 Erythrocyte distribution width (RBC) [Ratio] 68.2 fl High 35.1-43.9 [facility] Glomerular filtration rate ( GFR) estimation/1.73 sq m using serum, plasma, or whole bOrdered By: Rick Carlin on 02-27-2025 GFR/1.73 sq M.predicted among non-blacks MDRD (S/P/Bld) [Vol rate/Area] 75 mL/min/{1.73_m2} >60 [facility] deOrdered By: Rick Carlin on 02-27-2025 Glucose [Mass/Vol] 368 mg/dL High 74-106 [facility] Hematocrit Auto (Bld) [Volum e fraction]Ordered By: Rick Carlin on 02-27-2025 Hematocrit (Bld) [Volume fraction] 24.0 % Low 40-54 [facility] Hemoglobin measurementOrdere d By: Rick Carlin on 02-27-2025 Hemoglobin (Bld) [Mass/Vol] 8.2 g/dL Low 13.0-16.5 [facility] Immature granulocytes/100 WB C Auto (Bld)Ordered By: Rick Carlin on 02-27-2025 Immature granulocytes/100 WBC (Bld) 0.400 % 0.0-0.9 [facility] MCV (mean corpuscular volume ) determinationOrdered By: Rick Carlin on 02-27-2025 MCV (RBC) [Entitic vol] 89.6 fL 80-94 [facility] Mean corpuscular hemoglobin (MCH) determinationOrdered By: Rick Carlin on 02-27-2025 MCH (RBC) [Entitic mass] 30.6 pg 27.0-32.0 [facility] Monocyte percentageOrdered B y: Rick Carlin on 02-27-2025 Monocytes/100 WBC (Bld) 12.5 % High 0-10 [facility] Neutrophil percentageOrdered By: Rick Carlin on 02-27-2025 Neutrophils/100 WBC (Bld) 61.4 % 47-70 [facility] No Panel InformationOrdered By: Rick Carlin on 02-27-2025 2+ [facility] 65 U/L High <38 [facility] Ovalocyte detectionOrdered B y: Rick Carlin on 02-27-2025 Ovalocytes LM Ql (Bld) 1+ [facility] Platelet countOrdered By: Lissette Carlin on 02-27-2025 Platelets (Bld) [#/Vol] 133 10*3/uL Low 150-450 [facility] Platelet estimateOrdered By: Rick Carlin on 02-27-2025 Platelets LM Ql (Bld) SLT DEC ADEQ [facility] Potassium measurement (mass/ volume)Ordered By: Rick Carlin on 02-27-2025 Potassium (Unsp spec) [Mass/Vol] 3.2 mmol/L Low 3.3-5.1 [facility] RBC Auto (Bld) [#/Vol]Ordere d By: Rick Carlin on 02-27-2025 RBC (Bld) [#/Vol] 2.68 10*6/uL Low 4.6-6.2 [facility] Serum creatinine measurement (mass/volume)Ordered By: Rick Carlin on 02-27-2025 Creatinine [Mass/Vol] 1.14 mg/dL 0.70-1.20 [facility] Serum globulin measurementOr dered By: Rick Carlin on 02-27-2025 Globulin (S) [Mass/Vol] 3.3 g/dL 2.2-4.2 [facility] Serum glucose measurement (m ass/volume)Ordered By: Rick Carlin on 02-27-2025 Glucose [Mass/Vol] 272 mg/dL High 70-99 [facility] Serum or plasma alanine thomas otransferase (ALT) measurementOrdered By: Rick Carlin on 02-27-2025 ALT [Catalytic activity/Vol] 43 U/L <47 [facility] Serum or plasma albumin roosevelt urement (mass/volume)Ordered By: Rick Carlin on 02-27-2025 Albumin [Mass/Vol] 2.2 g/dL Low 3.5-5.0 [facility] Serum or plasma albumin/glob ulin mass ratioOrdered By: Rick Carlin on 02-27-2025 Albumin/Globulin [Mass ratio] 0.7 {ratio} Low 0.9-2.4 [facility] Serum or plasma alkaline kendrick sphatase measurementOrdered By: Rick Carlin on 02-27-2025 ALP [Catalytic activity/Vol] 244 U/L High 40-129 [facility] Serum or plasma calcium roosevelt urement (mass/volume)Ordered By: Rick Carlin on 02-27-2025 Calcium [Mass/Vol] 8.0 mg/dL 7.6-11.0 [facility] Serum or plasma urea nitroge n measurement (mass/volume)Ordered By: Rick Carlin on 02-27-2025 Urea nitrogen [Mass/Vol] 15 mg/dL 4-19 [facility] Sodium levelOrdered By: Rick Carlin on 02-27-2025 Sodium [Moles/Vol] 131 mmol/L Low 133-145 [facility] Total proteinOrdered By: Meredith Carlin on 02-27-2025 Protein [Mass/Vol] 5.5 g/dL Low 5.9-8.4 [facility] White blood cell (WBC) count Ordered By: Rick Carlin on 02-27-2025 WBC (Bld) [#/Vol] 8.2 10*3/uL 4.4-11.0 [facility] Bedside Glucoseon 02-26-2025 FINGERSTICK GLU 323 mg/dL High 74-106 [facility] Comment on above: Result Comment: BRISA MOROCHO OF PATIENT CARE PER NURSING PROTOCOL Performed By: #### L 501.080 ####[facility] [address] [place], [address] FINGERSTICK GLU 359 mg/dL High 74-106 [facility] Comment on above: Result Comment: BRISA GEMENT OF PATIENT CARE PER NURSING PROTOCOL Performed By: #### L 501.080 ####[facility] [address] [place], [address] FINGERSTICK GLU 344 mg/dL High 74-106 [facility] Comment on above: Result Comment: BRISA GEMENT OF PATIENT CARE PER NURSING PROTOCOL Performed By: #### L 501.080 ####[facility] [address] [place], [address] FINGERSTICK GLU 267 mg/dL High 74-106 [facility] Comment on above: Result Comment: BRISA GEMENT OF PATIENT CARE PER NURSING PROTOCOL Performed By: #### L 501.080 ####[facility] [address] [place], [address] Body Fluid Culton 02-26-2025 BFC Culture exhibits no growth. Normal [facility] Comment on above: Performed By: #### M 100.2900, M100.2000, L200.0200, L400.0001, M100.4001 ####[facility] [address] [place], [address] CBC W/Diff, Automatedon 07- Anisocytosis Ql (Bld) 2+ Normal [facility] Comment on above: Performed By: #### L 100.0100, L500.4050 ####[facility] [address] [place], [address] SMEAR COMMENT SCANNED Normal [facility] Comment on above: Performed By: #### L 100.0100, L500.4050 ####[facility] [address] [place], [address] Comprehensive Metabolic Prof ilon 02-26-2025 Albumin [Mass/Vol] 2.4 g/dL Low 3.5-5.0 [facility] Comment on above: Performed By: #### L 100.0100, L500.4050 ####[facility] [address] [place], [address] Albumin/Globulin [Mass ratio] 0.7 {ratio} Low 0.9-2.4 [facility] Comment on above: Performed By: #### L 100.0100, L500.4050 ####[facility] [address] [place], [address] ALK PHOS 258 U/L High 40-129 [facility] Comment on above: Performed By: #### L 100.0100, L500.4050 ####[facility] [address] [place], [address] ALT [Catalytic activity/Vol] 50 U/L High <=46 [facility] Comment on above: Performed By: #### L 100.0100, L500.4050 ####[facility] [address] [place], [address] AST [Catalytic activity/Vol] 78 U/L High <=37 [facility] Comment on above: Performed By: #### L 100.0100, L500.4050 ####[facility] [address] [place], [address] Bilirubin [Mass/Vol] 5.33 mg/dL High 0.00-1.30 [facility] [place] Comment on above: Performed By: #### L 100.0100, L500.4050 ####[facility] [address] [place], [address] BUN/CRE 12.9 RATIO Normal 10-20 [facility] Comment on above: Performed By: #### L 100.0100, L500.4050 ####[facility] [address] [place], [address] Calcium [Mass/Vol] 8.3 mg/dL Normal 7.6-11.0 [facility] Comment on above: Performed By: #### L 100.0100, L500.4050 ####[facility] [address] [place], [address] Chloride [Moles/Vol] 102 mmol/L Normal 98-108 [facility] Comment on above: Performed By: #### L 100.0100, L500.4050 ####[facility] [address] [place], [address] CO2 [Moles/Vol] 19.6 mmol/L Low 21.0-32.0 [facility] Comment on above: Performed By: #### L 100.0100, L500.4050 ####[facility] [address] [place], [address] Creatinine [Mass/Vol] 1.03 mg/dL Normal 0.70-1.20 [facility] Comment on above: Result Comment: Icte daquan present, Results may be affected. Performed By: #### L 100.0100, L500.4050 ####[facility] [address] [place], [address] ECRCL 86.83 ml/min Normal 50-250 [facility] Comment on above: Performed By: #### L 100.0100, L500.4050 ####[facility] [address] [place], [address] GAP 12 Normal 5-15 [facility] Comment on above: Performed By: #### L 100.0100, L500.4050 ####[facility] [address] [place], [address] GFR/1.73 sq M.predicted among non-blacks MDRD (S/P/Bld) [Vol rate/Area] 84 mL/min/{1.73_m2} Normal >60 [facility] Comment on above: Result Comment: mL/m in/1.73m2 CKD-EPI Creatinine Equation (2020) Performed By: #### L 100.0100, L500.4050 ####[facility] [address] [place], [address] Globulin (S) [Mass/Vol] 3.6 g/dL Normal 2.2-4.2 [facility] Comment on above: Performed By: #### L 100.0100, L500.4050 ####[facility] [address] [place], [address] Glucose [Mass/Vol] 269 mg/dL High 70-99 [facility] Comment on above: Performed By: #### L 100.0100, L500.4050 ####[facility] [address] [place], [address] Potassium [Moles/Vol] 3.0 mmol/L Low 3.3-5.1 [facility] Comment on above: Performed By: #### L 100.0100, L500.4050 ####[facility] [address] [place], [address] Sodium [Moles/Vol] 133 mmol/L Normal 133-145 [facility] Comment on above: Performed By: #### L 100.0100, L500.4050 ####[facility] [address] [place], [address] T PROT 6.0 g/dL Normal 5.9-8.4 [facility] Comment on above: Performed By: #### L 100.0100, L500.4050 ####[facility] [address] [place], [address] Urea nitrogen [Mass/Vol] 13 mg/dL Normal 4-19 [facility] Comment on above: Performed By: #### L 100.0100, L500.4050 ####[facility] [address] [place], [address] Gram Stainon 02-26-2025 GS Centrifuged Specimen ? Culture performed on centrifuged specimen Gram Stain No organisms seen Rare White Blood Cells Normal [facility] Comment on above: Performed By: #### M 100.2900, M100.2000, L200.0200, L400.0001, M100.4001 ####[facility] [address] [place], [address] Prothrombin Time w/INRon INR Coag (PPP) [Relative time] 2.1 {INR} Normal [facility] Comment on above: Order Comment: Comme nts: Add onto previous labs if possible Performed By: #### L 300.3900 ####[facility] [address] [place], [address] PT Coag (PPP) [Time] 23.7 s High 11.7-14.9 [facility] [place] Comment on above: Order Comment: Comme nts: Add onto previous labs if possible Performed By: #### L 300.3900 ####[facility] [address] [place], [address] Prothrombin timeOrdered By: Kathie Powers on 02-26-2025 PT Coag (PPP) [Time] 23.7 s High 11.7-14.9 [facility] Ammoniaon 02-25-2025 Ammonia (P) [Moles/Vol] 127.0 umol/L High 16-60 [facility] Comment on above: Performed By: #### L 503.5510, L100.0100, L501.2450, L500.4050 ####[facility] [address] [place], [address] Anaerobic cultureOrdered By: Herberth Carlson on 02-25-2025 Bacteria identified Anaer cx Nom (Unsp spec) No growth in 5 days. [facility] Bedside Glucoseon 02-25-2025 FINGERSTICK GLU 271 mg/dL High 74-106 [facility] Comment on above: Result Comment: BRISA GEMENT OF PATIENT CARE PER NURSING PROTOCOL Performed By: #### L 501.080 ####[facility] [address] [place], [place], [address] FINGERSTICK GLU 192 mg/dL High 74-106 [facility] Comment on above: Result Comment: BRISA GEMENT OF PATIENT CARE PER NURSING PROTOCOL Performed By: #### L 501.080 ####[facility] [address] [place], [place], [address] Bilirubin Test strip Ql (U)O rdered By: Herberth Carlson on 02-25-2025 Bilirubin Ql (U) 3 mg/dL High Negative [facility] Body fluid appearance (nomin al result)Ordered By: Herberth Carlson on 02-25-2025 Appearance (Body fld) SL CLDY [facility] Body fluid color determinati onOrdered By: Herberth Carlson on 02-25-2025 Color (Body fld) YELLOW [facility] Body fluid cultureOrdered By : Herberth Carlson on 02-25-2025 Microbial culture, body fluid Culture exhibits no growth. [facility] Body fluid leukocytes count (number/volume)Ordered By: Herberth Carlson on 02-25-2025 WBC (Body fld) [#/Vol] 0.153 10*3/uL [facility] Body fluid lymphocytes/100 l eukocytesOrdered By: Herberth Carlson on 02-25-2025 Lymphocytes/100 WBC (Body fld) 6 % [facility] Body fluid macrophage countO rdered By: Herberth Carlson on 02-25-2025 Macrophages (Body fld) [#/Vol] 75 % [facility] Body fluid mesothelial cell percentageOrdered By: Herberth Carlson on 02-25-2025 Mesothelial cells/100 WBC (Body fld) 10 % [facility] Body fluid mononuclear cell percentageOrdered By: Herberth Carlson on 02-25-2025 Mononuclear cells/100 WBC (Body fld) 90.1 % [facility] Body fluid segmented neutrop hils count (number/volume)Ordered By: Herberth Carlson on 02-25-2025 Segmented neutrophils (Body fld) [#/Vol] 4 % [facility] Body fluid total cell countO rdered By: Herberth Carlson on 02-25-2025 Cells Counted Total (Body fld) [#] 0.207 10^3/ul [facility] CBC W/Diff, Automatedon - Anisocytosis Ql (Bld) 1+ Normal [facility] Comment on above: Performed By: #### L 503.5510, L100.0100, L501.2450, L500.4050 ####[facility] [address] [place], [address] Comprehensive Metabolic Prof ilon 02-25-2025 Albumin [Mass/Vol] 2.0 g/dL Low 3.5-5.0 [facility] Comment on above: Performed By: #### L 503.5510, L100.0100, L501.2450, L500.4050 ####[facility] [address] [place], [address] Albumin/Globulin [Mass ratio] 0.5 {ratio} Low 0.9-2.4 [facility] Comment on above: Performed By: #### L 503.5510, L100.0100, L501.2450, L500.4050 ####[facility] [address] [place], [address] ALK PHOS 249 U/L High 40-129 [facility] Comment on above: Performed By: #### L 503.5510, L100.0100, L501.2450, L500.4050 ####[facility] [address] [place], [address] ALT [Catalytic activity/Vol] 51 U/L High <=46 [facility] Comment on above: Result Comment: Hemo lysis present, Results??could be affected.?? Performed By: #### L 503.5510, L100.0100, L501.2450, L500.4050 ####[facility] [address] [place], [address] AST [Catalytic activity/Vol] 97 U/L High <=37 [facility] Comment on above: Result Comment: Hemo lysis present, Results??could be affected.?? Performed By: #### L 503.5510, L100.0100, L501.2450, L500.4050 ####[facility] [address] [place], [address] Bilirubin [Mass/Vol] 4.99 mg/dL High 0.00-1.30 [facility] Comment on above: Performed By: #### L 503.5510, L100.0100, L501.2450, L500.4050 ####[facility] [address] [place], [address] BUN/CRE 8.9 RATIO Low 10-20 [facility] Comment on above: Performed By: #### L 503.5510, L100.0100, L501.2450, L500.4050 ####[facility] [address] [place], [address] Calcium [Mass/Vol] 8.1 mg/dL Normal 7.6-11.0 [facility] Comment on above: Performed By: #### L 503.5510, L100.0100, L501.2450, L500.4050 ####[facility] [address] [place], [address] Chloride [Moles/Vol] 102 mmol/L Normal 98-108 [facility] [place] Comment on above: Performed By: #### L 503.5510, L100.0100, L501.2450, L500.4050 ####[facility] [address] [place], [address] CO2 [Moles/Vol] 17.5 mmol/L Low 21.0-32.0 [facility] Comment on above: Performed By: #### L 503.5510, L100.0100, L501.2450, L500.4050 ####[facility] [address] [place], [address] Creatinine [Mass/Vol] 1.07 mg/dL Normal 0.70-1.20 [facility] Comment on above: Result Comment: Icte daquan present, Results may be affected. Performed By: #### L 503.5510, L100.0100, L501.2450, L500.4050 ####[facility] [address] [place], [address] ECRCL 86.96 ml/min Normal 50-250 [facility] Comment on above: Performed By: #### L 503.5510, L100.0100, L501.2450, L500.4050 ####[facility] [address] [place], [address] GAP 12 Normal 5-15 [facility] Comment on above: Performed By: #### L 503.5510, L100.0100, L501.2450, L500.4050 ####[facility] [address] [place], [address] GFR/1.73 sq M.predicted among non-blacks MDRD (S/P/Bld) [Vol rate/Area] 80 mL/min/{1.73_m2} Normal >60 [facility] Comment on above: Result Comment: mL/m in/1.73m2 CKD-EPI Creatinine Equation (2020) Performed By: #### L 503.5510, L100.0100, L501.2450, L500.4050 ####[facility] [address] [place], [address] Globulin (S) [Mass/Vol] 3.9 g/dL Normal 2.2-4.2 [facility] Comment on above: Performed By: #### L 503.5510, L100.0100, L501.2450, L500.4050 ####[facility] [address] [place], [address] Glucose [Mass/Vol] 225 mg/dL High 70-99 [facility] Comment on above: Performed By: #### L 503.5510, L100.0100, L501.2450, L500.4050 ####[facility] [address] [place], [address] Potassium [Moles/Vol] 3.7 mmol/L Normal 3.3-5.1 [facility] Comment on above: Result Comment: Hemo lysis present, Results??could be affected.?? Performed By: #### L 503.5510, L100.0100, L501.2450, L500.4050 ####[facility] [address] [place], [address] Sodium [Moles/Vol] 131 mmol/L Low 133-145 [facility] Comment on above: Performed By: #### L 503.5510, L100.0100, L501.2450, L500.4050 ####[facility] [address] [place], [address] T PROT 5.9 g/dL Normal 5.9-8.4 [facility] Comment on above: Performed By: #### L 503.5510, L100.0100, L501.2450, L500.4050 ####[facility] [address] [place], [address] Urea nitrogen [Mass/Vol] 10 mg/dL Normal 4-19 [facility] Comment on above: Performed By: #### L 503.5510, L100.0100, L501.2450, L500.4050 ####[facility] [address] [place], [address] Emergency Department Summary on 02-25-2025 Emergency Department Summary Normal [facility] Gram stainOrdered By: Lopez Carlson on 02-25-2025 Microscopic observation Gram stain Nom (Unsp spec) [facility] H AND P Exam - Hospitaliston 02-25-2025 H&P Exam - Hospitalist Normal [facility] Ketones Test strip Ql (U)Ord ered By: Herberth Carlson on 02-25-2025 Ketones Ql (U) 5 mg/dl High Negative [facility] Lipaseon 02-25-2025 Lipase [Catalytic activity/Vol] 64 U/L Normal 13-75 [facility] Comment on above: Result Comment: Siddhartha bhat note:LIPASE revised reference range effective 22.New Lipase methodology. Expected to produce lower valuesthan the previous assay method.NEW Reference Range: 13 - 75 U/L Performed By: #### L 503.5510, L100.0100, L501.2450, L500.4050 ####[facility] [address] [place], [address] MR/CON.PCM.GIon 02-25-2025 MR/CON.PCM.GI Normal [facility] Monocyte detectionOrdered By : Herberth Carlson on 02-25-2025 Monocytes/100 WBC (Bld) 5 % [facility] Mucus LM Ql (Urine sed)Order ed By: Herberth Carlson on 02-25-2025 Mucus Ql (Urine sed) 0 SEEN /hpf [facility] Nitrite Test strip Ql (U)Ord ered By: Herberth Carlson on 02-25-2025 Nitrite Ql (U) Negative Negative [facility] No Panel InformationOrdered By: Herberth Carlson on 02-25-2025 283 /mm3 [facility] SEE COMMENT [facility] Pathologist interpretation o f Body fluid testsOrdered By: Herberth Carlson on 02-25-2025 Pathologist interpretation (Body fld) [Interp] Reviewed [facility] Protein Test strip Ql (U)Ord ered By: Herberth Carlson on 02-25-2025 Protein Ql (U) 100 mg/dl High Negative [facility] Specimen source identificati on of body fluidOrdered By: Herberth Carlson on 02-25-2025 Specimen source Nom (Body fld) ASCITES FLUID [facility] Squamous epithelial cells de tection in urine sediment by light microscopyOrdered By: Herberth Carlson on 02-25-2025 Epithelial cells.squamous LM Ql (Urine sed) 0 SEEN /hpf 0-5 [facility] Urinalysis, Completeon 02-25 RBC > 100 SEEN Normal 0-5 [facility] Comment on above: Order Comment: COLOR OF URINE MAY AFFECT DIPSTICK RESULTS.CLEAN CATCH Result Comment: Micr oscopic field is filled. Other elements may beobscured. Performed By: #### M 100.2900, M100.2000, L200.0200, L400.0001, M100.4001 ####[facility] [address] [place], [address] WBC >100 SEEN Normal 0-5 [facility] Comment on above: Order Comment: COLOR OF URINE MAY AFFECT DIPSTICK RESULTS.CLEAN CATCH Result Comment: Micr oscopic field is filled. Other elements may beobscured. Performed By: #### M 100.2900, M100.1999, L200.0200, L400.0001, M100.4001 ####[facility] [address] [place], [address] YEAST 2+ /hpf Normal None Seen [facility] Comment on above: Order Comment: COLOR OF URINE MAY AFFECT DIPSTICK RESULTS.CLEAN CATCH Performed By: #### M 100.2900, M100.1999, L200.0200, L400.0001, M100.4001 ####[facility] [address] [place], [address] BACTERIA 0 SEEN Normal None Seen [facility] Comment on above: Order Comment: COLOR OF URINE MAY AFFECT DIPSTICK RESULTS.CLEAN CATCH Performed By: #### M 100.2900, M100.2000, L200.0200, L400.0001, M100.4001 ####[facility] [address] [place], [address] EPI,SQUAMOUS 0 SEEN Normal 0-5 [facility] Comment on above: Order Comment: COLOR OF URINE MAY AFFECT DIPSTICK RESULTS.CLEAN CATCH Performed By: #### M 100.2900, M100.2000, L200.0200, L400.0001, M100.4001 ####[facility] [address] [place], [address] Mucus Ql (Urine sed) 0 SEEN Normal [facility] Comment on above: Order Comment: COLOR OF URINE MAY AFFECT DIPSTICK RESULTS.CLEAN CATCH Performed By: #### M 100.2900, M100.2000, L200.0200, L400.0001, M100.4001 ####[facility] [address] [place], [address] Urine clarityOrdered By: Digna Carlson on 02-25-2025 Clarity (U) Cloudy Clear [facility] Urine color determinationOrd ered By: Herberth Carlson on 02-25-2025 Color (U) Red Yellow [facility] Urine glucose detectionOrder ed By: Herberth Carlson on 02-25-2025 Glucose Ql (U) 100 mg/dl High Normal [facility] Urine leukocyte esterase det ection by dipstickOrdered By: Herberth Carlson on 02-25-2025 Leukocyte esterase Test strip Ql (U) 500 /ul High Negative [facility] Urine pHOrdered By: Herberth Carlson on 02-25-2025 pH (U) 6.5 [pH] 5.0 - 8.0 [facility] Urine sediment bacteria coun t by microscopy (number/high power field)Ordered By: Herberth Carlson on 02-25-2025 Bacteria LM.HPF (Urine sed) [#/Area] 0 /[HPF] None Seen [facility] Urine sediment yeast count b y microscopy (number/high powered field)Ordered By: Herberth Carlson on 02-25-2025 Yeast LM.HPF (Urine sed) [#/Area] 2 /[HPF] None Seen [facility] Urine specific gravity measu rementOrdered By: Herberth Carlson on 02-25-2025 Specific gravity (U) [Rel density] 1.015 1.002-1.030 [facility] Urine urobilinogen measureme ntOrdered By: Herberth Carlson on 02-25-2025 Urobilinogen Ql (U) Normal mg/dl Normal [facility] Venous blood ammonia measure mentOrdered By: Herberth Carlson on 02-25-2025 Ammonia (P) [Moles/Vol] 127.0 umol/L High 16-60 [facility] White blood cell countOrdere d By: Herberth Carlson on 02-25-2025 White blood cell count >100 SEEN /hpf 0-5 [facility] Hepatitis Panel Acuteon 02-01 COMMENT Comment Normal . [facility] Comment on above: Result Comment: Not infected with HCV unless early or acute infection issuspected (which may be delayed in an immunocompromisedindividual), or other evidence exists to indicate HCVinfection.Performed at: [facility] [id number] Director: Buck Ivy PhD, Phone: [phone] Performed By: #### L 100.0100, L500.4050, L3000.0375, L503.5510 ####[facility] [address] [place], [address] HEP B CORE,IgM Negative Normal Negative [facility] Comment on above: Performed By: #### L 100.0100, L500.4050, L3000.0375, L503.5510 ####[facility] [address] [place], [place], [address] HEP B SURF AG Negative Normal Negative [facility] Comment on above: Performed By: #### L 100.0100, L500.4050, L3000.0375, L503.5510 ####[facility] [address] [place], [place], [address] HEP C VIRUS AB Non-Reactive Normal Non Reactive [facility] Comment on above: Performed By: #### L 100.0100, L500.4050, L3000.0375, L503.5510 ####[facility] [address] [place], [address] HEPATITIS A-IgM Negative Normal Negative [facility] Comment on above: Result Comment: A ne gative anti-HAV IgM result suggests no recent orcurrent HAV infection. Performed By: #### L 100.0100, L500.4050, L3000.0375, L503.5510 ####[facility] [address] [place], [address] Anion gap in Serum or Plasma Ordered By: Jae Ash on 02-17-2025 Anion gap [Moles/Vol] 10 mmol/L 5-15 [facility] BUN/creatinine ratioOrdered By: Jae Ash on 02-17-2025 Urea nitrogen/Creatinine [Mass ratio] 9.7 mg/mg Low 10-20 [facility] Bedside Glucoseon 02-17-2025 FINGERSTICK GLU 194 mg/dL High 74-106 [facility] Comment on above: Result Comment: BRISA MOROCHO OF PATIENT CARE PER NURSING PROTOCOL Performed By: #### L 501.080 ####[facility] [address] [place], [address] Bilirubin, totalOrdered By: Jae Ash on 02-17-2025 Bilirubin [Mass/Vol] 6.79 mg/dL High 0.00-1.30 [facility] Blood manual differential co mment interpretation (narrative result)Ordered By: Jae Ash on 02-17-2025 Manual differential comment Marco Antonio (Bld) [Interp] SCANNED [facility] CBC-Complete Blood Cnt No Di ffon 02-17-2025 Erythrocyte distribution width (RBC) [Ratio] 19.0 % High 11.6-14.6 [facility] Comment on above: Performed By: #### L 100.4500, L300.3900, L100.0500, L500.4050 ####[facility] [address] [place], [address] Hematocrit (Bld) [Volume fraction] 21.9 % Low 40-54 [facility] Comment on above: Performed By: #### L 100.4500, L300.3900, L100.0500, L500.4050 ####[facility] [address] [place], [address] Hemoglobin (Bld) [Mass/Vol] 7.7 g/dL Low 13.0-16.5 [facility] Comment on above: Performed By: #### L 100.4500, L300.3900, L100.0500, L500.4050 ####[facility] [address] [place], [address] MCH (RBC) [Entitic mass] 30.0 pg Normal 27.0-32.0 [facility] Comment on above: Performed By: #### L 100.4500, L300.3900, L100.0500, L500.4050 ####[facility] [address] [place], [address] MCHC (RBC) [Mass/Vol] 35.2 g/dL Normal 32-36 [facility] Comment on above: Performed By: #### L 100.4500, L300.3900, L100.0500, L500.4050 ####[facility] [address] [place], [address] MCV (RBC) [Entitic vol] 85.2 fL Normal 80-94 [facility] Comment on above: Performed By: #### L 100.4500, L300.3900, L100.0500, L500.4050 ####[facility] [address] [place], [address] Platelet mean volume (Bld) [Entitic vol] 11.7 fL Normal 6.2-12.0 [facility] Comment on above: Performed By: #### L 100.4500, L300.3900, L100.0500, L500.4050 ####[facility] [address] [place], [address] Platelets (Bld) [#/Vol] 90 10*3/uL Low 150-450 [facility] Comment on above: Performed By: #### L 100.4500, L300.3900, L100.0500, L500.4050 ####[facility] [address] [place], [address] RBC (Bld) [#/Vol] 2.57 10*6/uL Low 4.6-6.2 [facility] Comment on above: Performed By: #### L 100.4500, L300.3900, L100.0500, L500.4050 ####[facility] [address] [place], [address] RDW SD 51.1 fl High 35.1-43.9 [facility] Comment on above: Performed By: #### L 100.4500, L300.3900, L100.0500, L500.4050 ####[facility] [address] [place], [address] WBC (Bld) [#/Vol] 8.5 10*3/uL Normal 4.4-11.0 [facility] Comment on above: Performed By: #### L 100.4500, L300.3900, L100.0500, L500.4050 ####[facility] [address] [place], [address] Carbon dioxide, total [Moles /volume] in Central venous bloodOrdered By: Jae Ash on 02-17-2025 CO2 [Moles/Vol] 22.1 mmol/L 21.0-32.0 [facility] Chloride assayOrdered By: Sky Ash on 02-17-2025 Chloride [Moles/Vol] 100 mmol/L 98-108 [facility] Comprehensive Metabolic Prof ilon 02-17-2025 Albumin [Mass/Vol] 2.1 g/dL Low 3.5-5.0 [facility] Comment on above: Performed By: #### L 100.4500, L300.3900, L100.0500, L500.4050 ####[facility] [address] [place], [address] Albumin/Globulin [Mass ratio] 0.7 {ratio} Low 0.9-2.4 [facility] Comment on above: Performed By: #### L 100.4500, L300.3900, L100.0500, L500.4050 ####[facility] [address] [place], [address] ALK PHOS 278 U/L High 40-129 [facility] Comment on above: Performed By: #### L 100.4500, L300.3900, L100.0500, L500.4050 ####[facility] [address] [place], [address] ALT [Catalytic activity/Vol] 46 U/L Normal <=46 [facility] Comment on above: Performed By: #### L 100.4500, L300.3900, L100.0500, L500.4050 ####[facility] [address] [place], [address] AST [Catalytic activity/Vol] 99 U/L High <=37 [facility] Comment on above: Result Comment: Hemo lysis present, Results??could be affected.?? Performed By: #### L 100.4500, L300.3900, L100.0500, L500.4050 ####[facility] [address] [place], [address] Bilirubin [Mass/Vol] 6.79 mg/dL High 0.00-1.30 [facility] Comment on above: Performed By: #### L 100.4500, L300.3900, L100.0500, L500.4050 ####[facility] [address] [place], [address] BUN/CRE 9.7 RATIO Low 10-20 [facility] Comment on above: Performed By: #### L 100.4500, L300.3900, L100.0500, L500.4050 ####[facility] [address] [place], [address] Calcium [Mass/Vol] 7.3 mg/dL Low 7.6-11.0 [facility] Comment on above: Performed By: #### L 100.4500, L300.3900, L100.0500, L500.4050 ####[facility] [address] [place], [address] Chloride [Moles/Vol] 100 mmol/L Normal 98-108 [facility] [place] Comment on above: Performed By: #### L 100.4500, L300.3900, L100.0500, L500.4050 ####[facility] [address] [place], [address] CO2 [Moles/Vol] 22.1 mmol/L Normal 21.0-32.0 [facility] Comment on above: Performed By: #### L 100.4500, L300.3900, L100.0500, L500.4050 ####[facility] [address] [place], [address] Creatinine [Mass/Vol] 1.16 mg/dL Normal 0.70-1.20 [facility] Comment on above: Result Comment: Icte daquan present, Results may be affected. Performed By: #### L 100.4500, L300.3900, L100.0500, L500.4050 ####[facility] [address] [place], [address] ECRCL 79.19 ml/min Normal 50-250 [facility] Comment on above: Performed By: #### L 100.4500, L300.3900, L100.0500, L500.4050 ####[facility] [address] [place], [address] GAP 10 Normal 5-15 [facility] Comment on above: Performed By: #### L 100.4500, L300.3900, L100.0500, L500.4050 ####[facility] [address] [place], [address] GFR/1.73 sq M.predicted among non-blacks MDRD (S/P/Bld) [Vol rate/Area] 73 mL/min/{1.73_m2} Normal >60 [facility] Comment on above: Result Comment: mL/m in/1.73m2 CKD-EPI Creatinine Equation (2020) Performed By: #### L 100.4500, L300.3900, L100.0500, L500.4050 ####[facility] [address] [place], [address] Globulin (S) [Mass/Vol] 3.2 g/dL Normal 2.2-4.2 [facility] Comment on above: Performed By: #### L 100.4500, L300.3900, L100.0500, L500.4050 ####[facility] [address] [place], [address] Glucose [Mass/Vol] 246 mg/dL High 70-99 [facility] Comment on above: Performed By: #### L 100.4500, L300.3900, L100.0500, L500.4050 ####[facility] [address] [place], [address] Potassium [Moles/Vol] 3.6 mmol/L Normal 3.3-5.1 [facility] Comment on above: Result Comment: Hemo lysis present, Results??could be affected.?? Performed By: #### L 100.4500, L300.3900, L100.0500, L500.4050 ####[facility] [address] [place], [address] Sodium [Moles/Vol] 132 mmol/L Low 133-145 [facility] Comment on above: Performed By: #### L 100.4500, L300.3900, L100.0500, L500.4050 ####[facility] [address] [place], [address] T PROT 5.3 g/dL Low 5.9-8.4 [facility] Comment on above: Performed By: #### L 100.4500, L300.3900, L100.0500, L500.4050 ####[facility] [address] [place], [address] Urea nitrogen [Mass/Vol] 11 mg/dL Normal 4-19 [facility] Comment on above: Performed By: #### L 100.4500, L300.3900, L100.0500, L500.4050 ####[facility] [address] [place], [address] Differential Commenton 02-17 SMEAR COMMENT SCANNED Normal [facility] Comment on above: Result Comment: MODE RATE THROMBOCYTOPENIA NOTED Performed By: #### L 100.4500, L300.3900, L100.0500, L500.4050 ####[facility] [address] [place], [address] Discharge Instructionon 02-01 Discharge Instruction Normal [facility] Erythrocyte distribution wid th ratioOrdered By: Jae Ash on 02-17-2025 Erythrocyte distribution width (RBC) [Ratio] 19.0 % High 11.6-14.6 [facility] Erythrocyte distribution wid th standard deviationOrdered By: Jae Ash on 02-17-2025 Erythrocyte distribution width (RBC) [Ratio] 51.1 fl High 35.1-43.9 [facility] Glomerular filtration rate ( GFR) estimation/1.73 sq m using serum, plasma, or whole bOrdered By: Jae Ash on 02-17-2025 GFR/1.73 sq M.predicted among non-blacks MDRD (S/P/Bld) [Vol rate/Area] 73 mL/min/{1.73_m2} >60 [facility] deOrdered By: Anurag Irene on 02-17-2025 Glucose [Mass/Vol] 194 mg/dL High 74-106 [facility] Hematocrit Auto (Bld) [Volum e fraction]Ordered By: Jae Ash on 02-17-2025 Hematocrit (Bld) [Volume fraction] 21.9 % Low 40-54 [facility] Hemoglobin measurementOrdere d By: Jae Ash on 02-17-2025 Hemoglobin (Bld) [Mass/Vol] 7.7 g/dL Low 13.0-16.5 [facility] MCV (mean corpuscular volume ) determinationOrdered By: Jae Ash on 02-17-2025 MCV (RBC) [Entitic vol] 85.2 fL 80-94 [facility] MR/CON.PCM.GIon 02-17-2025 MR/CON.PCM.GI Normal [facility] Mean corpuscular hemoglobin (MCH) determinationOrdered By: Jae Ash on 02-17-2025 MCH (RBC) [Entitic mass] 30.0 pg 27.0-32.0 [facility] No Panel InformationOrdered By: Jae Ash on 02-17-2025 99 U/L High <38 [facility] Platelet countOrdered By: Sky Ash on 02-17-2025 Platelets (Bld) [#/Vol] 90 10*3/uL Low 150-450 [facility] Potassium measurement (mass/ volume)Ordered By: Jae Ash on 02-17-2025 Potassium (Unsp spec) [Mass/Vol] 3.6 mmol/L 3.3-5.1 [facility] Prothrombin Time w/INRon INR Coag (PPP) [Relative time] 2.0 {INR} Normal [facility] Comment on above: Performed By: #### L 100.4500, L300.3900, L100.0500, L500.4050 ####[facility] [address] [place], [address] PT Coag (PPP) [Time] 22.8 s High 11.7-14.9 [facility] [place] Comment on above: Performed By: #### L 100.4500, L300.3900, L100.0500, L500.4050 ####[facility] [address] [place], [address] Prothrombin timeOrdered By: Jae Ash on 02-17-2025 PT Coag (PPP) [Time] 22.8 s High 11.7-14.9 [facility] RBC Auto (Bld) [#/Vol]Ordere d By: Jae Ash on 02-17-2025 RBC (Bld) [#/Vol] 2.57 10*6/uL Low 4.6-6.2 [facility] Serum creatinine measurement (mass/volume)Ordered By: Jae Ash on 02-17-2025 Creatinine [Mass/Vol] 1.16 mg/dL 0.70-1.20 [facility] Serum globulin measurementOr dered By: Jae Ash on 02-17-2025 Globulin (S) [Mass/Vol] 3.2 g/dL 2.2-4.2 [facility] Serum glucose measurement (m ass/volume)Ordered By: Jae Ash on 02-17-2025 Glucose [Mass/Vol] 246 mg/dL High 70-99 [facility] Serum or plasma alanine thomas otransferase (ALT) measurementOrdered By: Jae Ash on 02-17-2025 ALT [Catalytic activity/Vol] 46 U/L <47 [facility] Serum or plasma albumin roosevelt urement (mass/volume)Ordered By: Jae Ash on 02-17-2025 Albumin [Mass/Vol] 2.1 g/dL Low 3.5-5.0 [facility] Serum or plasma albumin/glob ulin mass ratioOrdered By: Jae Ash on 02-17-2025 Albumin/Globulin [Mass ratio] 0.7 {ratio} Low 0.9-2.4 [facility] Serum or plasma alkaline kendrick sphatase measurementOrdered By: aJe Ash on 02-17-2025 ALP [Catalytic activity/Vol] 278 U/L High 40-129 [facility] Serum or plasma calcium roosevelt urement (mass/volume)Ordered By: Jae Ash on 02-17-2025 Calcium [Mass/Vol] 7.3 mg/dL Low 7.6-11.0 [facility] Serum or plasma urea nitroge n measurement (mass/volume)Ordered By: Jae Ash on 02-17-2025 Urea nitrogen [Mass/Vol] 11 mg/dL 4-19 [facility] Sodium levelOrdered By: Pasha Ash on 02-17-2025 Sodium [Moles/Vol] 132 mmol/L Low 133-145 [facility] Total proteinOrdered By: Diane Ash on 02-17-2025 Protein [Mass/Vol] 5.3 g/dL Low 5.9-8.4 [facility] White blood cell (WBC) count Ordered By: Jae Ash on 02-17-2025 WBC (Bld) [#/Vol] 8.5 10*3/uL 4.4-11.0 [facility] Absolute lymphocyte countOrd ered By: Jerald Sherwood on 02-16-2025 Lymphocytes Auto (Unsp spec) [#/Vol] 1.28 10*3/uL 0.83-4.51 [facility] Anion gap in Serum or Plasma Ordered By: Jerald Sherwood on 02-16-2025 Anion gap [Moles/Vol] 12 mmol/L 5-15 [facility] Automated lymphocyte count a s percentage of total leukocytesOrdered By: Jerald Sherwood on 02-16-2025 Lymphocytes/100 WBC Auto (Unsp spec) 15.1 % Low 19-41 [facility] BUN/creatinine ratioOrdered By: Jerald Sherwood on 02-16-2025 Urea nitrogen/Creatinine [Mass ratio] 9.4 mg/mg Low 10-20 [facility] Basophil percentageOrdered B y: Jerald Sherwood on 02-16-2025 Basophils/100 WBC (Bld) 0.5 % 0-1 [facility] Bedside Glucoseon 02-16-2025 FINGERSTICK GLU 216 mg/dL High 74-106 [facility] Comment on above: Result Comment: BRISA MOROCHO OF PATIENT CARE PER NURSING PROTOCOL Performed By: #### L 501.080 ####[facility] [address] [place], [address] Bilirubin directOrdered By: Jae Ash on 02-16-2025 Bilirubin.direct [Mass/Vol] 5.10 mg/dL High 0.00-0.30 [facility] Bilirubin, Directon 02-17-20 25 Bilirubin.direct [Mass/Vol] 5.10 mg/dL High 0.00-0.30 [facility] Comment on above: Performed By: #### L 504.2610, L501.4700 ####[facility] [address] [place], [address] Bilirubin, totalOrdered By: Jerald Sherwood on 02-16-2025 Bilirubin [Mass/Vol] 7.29 mg/dL High 0.00-1.30 [facility] [place] CBC W/Diff, Automatedon 02-01 Absolute Lymph 1.28 X10 3/uL Normal 0.83-4.51 [facility] Comment on above: Performed By: #### L 100.0100, L500.4050, L3000.0375, L503.5510 ####[facility] [address] [place], [address] Absolute Neut 5.7 X10 3/uL Normal 2.0-7.7 [facility] Comment on above: Performed By: #### L 100.0100, L500.4050, L3000.0375, L503.5510 ####[facility] [address] [place], [address] Basophils/100 WBC (Bld) 0.5 % Normal 0-1 [facility] Comment on above: Performed By: #### L 100.0100, L500.4050, L3000.0375, L503.5510 ####[facility] [address] [place], [address] Eosinophils/100 WBC (Bld) 5.4 % High 0-5 [facility] Comment on above: Performed By: #### L 100.0100, L500.4050, L3000.0375, L503.5510 ####[facility] [address] [place], [address] Erythrocyte distribution width (RBC) [Ratio] 18.7 % High 11.6-14.6 [facility] Comment on above: Performed By: #### L 100.0100, L500.4050, L3000.0375, L503.5510 ####[facility] [address] [place], [address] Hematocrit (Bld) [Volume fraction] 24.8 % Low 40-54 [facility] Comment on above: Performed By: #### L 100.0100, L500.4050, L3000.0375, L503.5510 ####[facility] [address] [place], [address] Hemoglobin (Bld) [Mass/Vol] 8.2 g/dL Low 13.0-16.5 [facility] Comment on above: Performed By: #### L 100.0100, L500.4050, L3000.0375, L503.5510 ####[facility] [address] [place], [address] IG% 0.200 Normal 0.0-0.9 [facility] Comment on above: Result Comment: IG% - Immature Granulocytes (promyelocytes, myelocytes andmetamyelocytes) > 1% indicates that a LEFT SHIFT is Present. Performed By: #### L 100.0100, L500.4050, L3000.0375, L503.5510 ####[facility] [address] [place], [address] Lymphocytes/100 WBC (Bld) 15.1 % Low 19-41 [facility] Comment on above: Performed By: #### L 100.0100, L500.4050, L3000.0375, L503.5510 ####[facility] [address] [place], [address] MCH (RBC) [Entitic mass] 28.9 pg Normal 27.0-32.0 [facility] Comment on above: Performed By: #### L 100.0100, L500.4050, L3000.0375, L503.5510 ####[facility] [address] [place], [address] MCHC (RBC) [Mass/Vol] 33.1 g/dL Normal 32-36 [facility] Comment on above: Performed By: #### L 100.0100, L500.4050, L3000.0375, L503.5510 ####[facility] [address] [place], [address] MCV (RBC) [Entitic vol] 87.3 fL Normal 80-94 [facility] Comment on above: Performed By: #### L 100.0100, L500.4050, L3000.0375, L503.5510 ####[facility] [address] [place], [address] Monocytes/100 WBC (Bld) 11.7 % High 0-10 [facility] Comment on above: Performed By: #### L 100.0100, L500.4050, L3000.0375, L503.5510 ####[facility] [address] [place], [address] Neutrophils/100 WBC (Bld) 67.1 % Normal 47-70 [facility] Comment on above: Performed By: #### L 100.0100, L500.4050, L3000.0375, L503.5510 ####[facility] [address] [place], [address] Nucleated RBC (Bld) [#/Vol] 0 10*3/uL Normal 0-5 [facility] Comment on above: Performed By: #### L 100.0100, L500.4050, L3000.0375, L503.5510 ####[facility] [address] [place], [address] Platelet mean volume (Bld) [Entitic vol] 12.0 fL Normal 6.2-12.0 [facility] Comment on above: Performed By: #### L 100.0100, L500.4050, L3000.0375, L503.5510 ####[facility] [address] [place], [address] Platelets (Bld) [#/Vol] 106 10*3/uL Low 150-450 [facility] Comment on above: Performed By: #### L 100.0100, L500.4050, L3000.0375, L503.5510 ####[facility] [address] [place], [address] RBC (Bld) [#/Vol] 2.84 10*6/uL Low 4.6-6.2 [facility] Comment on above: Performed By: #### L 100.0100, L500.4050, L3000.0375, L503.5510 ####[facility] [address] [place], [address] RDW SD 53.5 fl High 35.1-43.9 [facility] Comment on above: Performed By: #### L 100.0100, L500.4050, L3000.0375, L503.5510 ####[facility] [address] [place], [address] WBC (Bld) [#/Vol] 8.5 10*3/uL Normal 4.4-11.0 [facility] Comment on above: Performed By: #### L 100.0100, L500.4050, L3000.0375, L503.5510 ####[facility] [address] [place], [address] Carbon dioxide, total [Moles /volume] in Central venous bloodOrdered By: Jerald Sherwood on 02-16-2025 CO2 [Moles/Vol] 24.1 mmol/L 21.0-32.0 [facility] Chloride assayOrdered By: Paulette Sherwood on 02-16-2025 Chloride [Moles/Vol] 99 mmol/L 98-108 [facility] [place] [facility] Metabolic Prof ilon 02-16-2025 Albumin [Mass/Vol] 2.3 g/dL Low 3.5-5.0 [facility] Comment on above: Performed By: #### L 100.0100, L500.4050, L3000.0375, L503.5510 ####[facility] [address] [place], [address] Albumin/Globulin [Mass ratio] 0.7 {ratio} Low 0.9-2.4 [facility] Comment on above: Performed By: #### L 100.0100, L500.4050, L3000.0375, L503.5510 ####[facility] [address] [place], [address] ALK PHOS 310 U/L High 40-129 [facility] Comment on above: Performed By: #### L 100.0100, L500.4050, L3000.0375, L503.5510 ####[facility] [address] [place], [address] ALT [Catalytic activity/Vol] 51 U/L High <=46 [facility] Comment on above: Performed By: #### L 100.0100, L500.4050, L3000.0375, L503.5510 ####[facility] [address] [place], [address] AST [Catalytic activity/Vol] 109 U/L High <=37 [facility] Comment on above: Performed By: #### L 100.0100, L500.4050, L3000.0375, L503.5510 ####[facility] [address] [place], [address] Bilirubin [Mass/Vol] 7.29 mg/dL High 0.00-1.30 [facility] Comment on above: Performed By: #### L 100.0100, L500.4050, L3000.0375, L503.5510 ####[facility] [address] [place], [address] BUN/CRE 9.4 RATIO Low 10-20 [facility] Comment on above: Performed By: #### L 100.0100, L500.4050, L3000.0375, L503.5510 ####[facility] [address] [place], [address] Calcium [Mass/Vol] 7.8 mg/dL Normal 7.6-11.0 [facility] Comment on above: Performed By: #### L 100.0100, L500.4050, L3000.0375, L503.5510 ####[facility] [address] [place], [address] Chloride [Moles/Vol] 99 mmol/L Normal 98-108 [facility] Comment on above: Performed By: #### L 100.0100, L500.4050, L3000.0375, L503.5510 ####[facility] [address] [place], [address] CO2 [Moles/Vol] 24.1 mmol/L Normal 21.0-32.0 [facility] Comment on above: Performed By: #### L 100.0100, L500.4050, L3000.0375, L503.5510 ####[facility] [address] [place], [address] Creatinine [Mass/Vol] 1.30 mg/dL High 0.70-1.20 [facility] Comment on above: Result Comment: Icte daquan present, Results may be affected. Performed By: #### L 100.0100, L500.4050, L3000.0375, L503.5510 ####[facility] [address] [place], [address] GAP 12 Normal 5-15 [facility] Comment on above: Performed By: #### L 100.0100, L500.4050, L3000.0375, L503.5510 ####[facility] [address] [place], [address] GFR/1.73 sq M.predicted among non-blacks MDRD (S/P/Bld) [Vol rate/Area] 64 mL/min/{1.73_m2} Normal >60 [facility] Comment on above: Result Comment: mL/m in/1.73m2 CKD-EPI Creatinine Equation (2020) Performed By: #### L 100.0100, L500.4050, L3000.0375, L503.5510 ####[facility] [address] [place], [address] Globulin (S) [Mass/Vol] 3.5 g/dL Normal 2.2-4.2 [facility] Comment on above: Performed By: #### L 100.0100, L500.4050, L3000.0375, L503.5510 ####[facility] [address] [place], [address] Glucose [Mass/Vol] 250 mg/dL High 70-99 [facility] Comment on above: Performed By: #### L 100.0100, L500.4050, L3000.0375, L503.5510 ####[facility] [address] [place], [address] Potassium [Moles/Vol] 3.1 mmol/L Low 3.3-5.1 [facility] Comment on above: Performed By: #### L 100.0100, L500.4050, L3000.0375, L503.5510 ####[facility] [address] [place], [address] Sodium [Moles/Vol] 135 mmol/L Normal 133-145 [facility] Comment on above: Performed By: #### L 100.0100, L500.4050, L3000.0375, L503.5510 ####[facility] [address] [place], [address] T PROT 5.8 g/dL Low 5.9-8.4 [facility] Comment on above: Performed By: #### L 100.0100, L500.4050, L3000.0375, L503.5510 ####[facility] [address] [place], [address] Urea nitrogen [Mass/Vol] 12 mg/dL Normal 4-19 [facility] Comment on above: Performed By: #### L 100.0100, L500.4050, L3000.0375, L503.5510 ####[facility] [address] [place], [address] Emergency Department Summary on 02-16-2025 Emergency Department Summary Normal [facility] Eosinophil percentageOrdered By: Jerald Sherwood on 02-16-2025 Eosinophils/100 WBC (Bld) 5.4 % High 0-5 [facility] Erythrocyte distribution wid th ratioOrdered By: Jerald Sherwood on 02-16-2025 Erythrocyte distribution width (RBC) [Ratio] 18.7 % High 11.6-14.6 [facility] Erythrocyte distribution wid th standard deviationOrdered By: Jerald Sherwood on 02-16-2025 Erythrocyte distribution width (RBC) [Ratio] 53.5 fl High 35.1-43.9 [facility] Glomerular filtration rate ( GFR) estimation/1.73 sq m using serum, plasma, or whole bOrdered By: Jerald Sherwood on 02-16-2025 GFR/1.73 sq M.predicted among non-blacks MDRD (S/P/Bld) [Vol rate/Area] 64 mL/min/{1.73_m2} >60 [facility] H AND P Exam - Hospitaliston 02-16-2025 H&P Exam - Hospitalist Normal [facility] Hematocrit Auto (Bld) [Volum e fraction]Ordered By: Jerald Sherwood on 02-16-2025 Hematocrit (Bld) [Volume fraction] 24.8 % Low 40-54 [facility] Hemoglobin measurementOrdere d By: Jerald Sherwood on 02-16-2025 Hemoglobin (Bld) [Mass/Vol] 8.2 g/dL Low 13.0-16.5 [facility] Immature granulocytes/100 WB C Auto (Bld)Ordered By: Jerald Sherwood on 02-16-2025 Immature granulocytes/100 WBC (Bld) 0.200 % 0.0-0.9 [facility] LDHon 02-16-2025 LDH 273 U/L High 87-241 [facility] Comment on above: Performed By: #### L 504.2610, L501.4700 ####[facility] [address] [place], [place], [address] MCV (mean corpuscular volume ) determinationOrdered By: Jerald Sherwood on 02-16-2025 MCV (RBC) [Entitic vol] 87.3 fL 80-94 [facility] Magnesiumon 02-16-2025 Magnesium [Mass/Vol] 1.3 mg/dL Low 1.5-2.2 [facility] Comment on above: Performed By: #### L 501.2300, L501.5200 ####[facility] [address] [place], [place], [address] Magnesium measurement (mass/ volume)Ordered By: Jae Ash on 02-16-2025 Magnesium (Unsp spec) [Mass/Vol] 1.3 mg/dL Low 1.5-2.2 [facility] Mean corpuscular hemoglobin (MCH) determinationOrdered By: Jerald Sherwood on 02-16-2025 MCH (RBC) [Entitic mass] 28.9 pg 27.0-32.0 [facility] Monocyte percentageOrdered B y: Jerald Sherwood on 02-16-2025 Monocytes/100 WBC (Bld) 11.7 % High 0-10 [facility] Neutrophil percentageOrdered By: Jerald Sherwood on 02-16-2025 Neutrophils/100 WBC (Bld) 67.1 % 47-70 [facility] No Panel InformationOrdered By: Jerald Sherwood on 02-16-2025 109 U/L High <38 [facility] Comment . [facility] Phosphoruson 02-16-2025 Phosphate [Mass/Vol] 2.3 mg/dL Low 2.7-4.5 [facility] Comment on above: Performed By: #### L 501.2300, L501.5200 ####[facility] [address] [place], [address] Platelet countOrdered By: Paulette Sherwood on 02-16-2025 Platelets (Bld) [#/Vol] 106 10*3/uL Low 150-450 [facility] Potassium measurement (mass/ volume)Ordered By: Jerald Sherwood on 02-16-2025 Potassium (Unsp spec) [Mass/Vol] 3.1 mmol/L Low 3.3-5.1 [facility] Prothrombin Time w/INRon INR Coag (PPP) [Relative time] 1.8 {INR} Normal [facility] Comment on above: Performed By: #### L 300.3900 ####[facility] [address] [place], [address] PT Coag (PPP) [Time] 21.1 s High 11.7-14.9 [facility] Comment on above: Performed By: #### L 300.3900 ####[facility] [address] [place], [place], [address] RBC Auto (Bld) [#/Vol]Ordere d By: Jerald Sherwood on 02-16-2025 RBC (Bld) [#/Vol] 2.84 10*6/uL Low 4.6-6.2 [facility] Serum creatinine measurement (mass/volume)Ordered By: Jerald Sherwood on 02-16-2025 Creatinine [Mass/Vol] 1.30 mg/dL High 0.70-1.20 [facility] Serum globulin measurementOr dered By: Jerald Sherwood on 02-16-2025 Globulin (S) [Mass/Vol] 3.5 g/dL 2.2-4.2 [facility] Serum glucose measurement (m ass/volume)Ordered By: Jerald Sherwood on 02-16-2025 Glucose [Mass/Vol] 250 mg/dL High 70-99 [facility] Serum or plasma alanine thomas otransferase (ALT) measurementOrdered By: Jerald Sherwood on 02-16-2025 ALT [Catalytic activity/Vol] 51 U/L High <47 [facility] Serum or plasma albumin roosevelt urement (mass/volume)Ordered By: Jerald Sherwood on 02-16-2025 Albumin [Mass/Vol] 2.3 g/dL Low 3.5-5.0 [facility] Serum or plasma albumin/glob ulin mass ratioOrdered By: Jerald Sherwood on 02-16-2025 Albumin/Globulin [Mass ratio] 0.7 {ratio} Low 0.9-2.4 [facility] Serum or plasma alkaline kendrick sphatase measurementOrdered By: Jerald Sherwood on 02-16-2025 ALP [Catalytic activity/Vol] 310 U/L High 40-129 [facility] Serum or plasma calcium roosevelt urement (mass/volume)Ordered By: Jerald Sherwood on 02-16-2025 Calcium [Mass/Vol] 7.8 mg/dL 7.6-11.0 [facility] Serum or plasma hepatitis B virus surface antigen detection by immunoassayOrdered By: Jerald Sherwood on 02-16-2025 HBV surface Ag IA Ql Negative Negative [facility] Serum or plasma urea nitroge n measurement (mass/volume)Ordered By: Jerald Sherwood on 02-16-2025 Urea nitrogen [Mass/Vol] 12 mg/dL 4-19 [facility] Sodium levelOrdered By: Jerald Sherwood on 02-16-2025 Sodium [Moles/Vol] 135 mmol/L 133-145 [facility] Total proteinOrdered By: Candie Sherwood on 02-16-2025 Protein [Mass/Vol] 5.8 g/dL Low 5.9-8.4 [facility] Venous blood ammonia measure mentOrdered By: Jerald Sherwood on 02-16-2025 Ammonia (P) [Moles/Vol] 88.0 umol/L High 16-60 [facility] Comment on above: Performed By: #### L 100.0100, L500.4050, L3000.0375, L503.5510 ####[facility] [address] [place], [place], [id number] White blood cell (WBC) count Ordered By: Jerald Sherwood on 02-16-2025 WBC (Bld) [#/Vol] 8.5 10*3/uL 4.4-11.0 [facility] Abdomen/Pelvis W IV Cont ONL Yon 02-13-2025 Abdomen/Pelvis W IV Cont ONLY Normal [facility] Absolute lymphocyte countOrd ered By: Luis Carlos Anderson on 02-13-2025 Lymphocytes Auto (Unsp spec) [#/Vol] 1.20 10*3/uL 0.83-4.51 [facility] Anion gap in Serum or Plasma Ordered By: Luis Carlos Anderson on 02-13-2025 Anion gap [Moles/Vol] 14 mmol/L 5-15 [facility] Automated lymphocyte count a s percentage of total leukocytesOrdered By: Luis Carlos Anderson on 02-13-2025 Lymphocytes/100 WBC Auto (Unsp spec) 13.9 % Low 19-41 [facility] BUN/creatinine ratioOrdered By: Luis Carlos Anderson on 02-13-2025 Urea nitrogen/Creatinine [Mass ratio] 14.3 mg/mg 10-20 [facility] Basophil percentageOrdered B y: Luis Carlos Anderson on 02-13-2025 Basophils/100 WBC (Bld) 0.3 % 0-1 [facility] Bilirubin, totalOrdered By: Luis Carlos Anderson on 02-13-2025 Bilirubin [Mass/Vol] 6.20 mg/dL High 0.00-1.30 [facility] Blood manual differential co mment interpretation (narrative result)Ordered By: Luis Carlos Anderson on 02-13-2025 Manual differential comment Marco Antonio (Bld) [Interp] SCANNED [facility] CBC W/Diff, Automatedon 02-01 PLT EST MOD DEC Normal ADEQ [facility] Comment on above: Performed By: #### L 100.0100, L500.4050, L501.2450 ####[facility] [address] [place], [address] Platelet mean volume (Bld) [Entitic vol] 10.8 fL Normal 6.2-12.0 [facility] Comment on above: Performed By: #### L 100.0100, L500.4050, L501.2450 ####[facility] [address] [place], [address] Platelets (Bld) [#/Vol] 83 10*3/uL Low 150-450 [facility] Comment on above: Result Comment: NO C LUMPING SEEN Performed By: #### L 100.0100, L500.4050, L501.2450 ####[facility] [address] [place], [address] SMEAR COMMENT SCANNED Normal [facility] Comment on above: Performed By: #### L 100.0100, L500.4050, L501.2450 ####[facility] [address] [place], [address] Carbon dioxide, total [Moles /volume] in Central venous bloodOrdered By: Luis Carlos Anderson on 02-13-2025 CO2 [Moles/Vol] 18.4 mmol/L Low 21.0-32.0 [facility] Chloride assayOrdered By: Yaya Anderson on 02-13-2025 Chloride [Moles/Vol] 102 mmol/L 98-108 [facility] [place] Comprehensive Metabolic Prof ilon 02-13-2025 Albumin [Mass/Vol] 2.2 g/dL Low 3.5-5.0 [facility] Comment on above: Performed By: #### L 100.0100, L500.4050, L501.2450 ####[facility] [address] [place], [address] Albumin/Globulin [Mass ratio] 0.6 {ratio} Low 0.9-2.4 [facility] Comment on above: Performed By: #### L 100.0100, L500.4050, L501.2450 ####[facility] [address] [place], [address] ALK PHOS 335 U/L High 40-129 [facility] Comment on above: Performed By: #### L 100.0100, L500.4050, L501.2450 ####[facility] [address] [place], [address] ALT [Catalytic activity/Vol] 53 U/L High <=46 [facility] Comment on above: Performed By: #### L 100.0100, L500.4050, L501.2450 ####[facility] [address] [place], [address] AST [Catalytic activity/Vol] 120 U/L High <=37 [facility] Comment on above: Performed By: #### L 100.0100, L500.4050, L501.2450 ####[facility] [address] [place], [address] Bilirubin [Mass/Vol] 6.20 mg/dL High 0.00-1.30 [facility] Comment on above: Performed By: #### L 100.0100, L500.4050, L501.2450 ####[facility] [address] [place], [address] BUN/CRE 14.3 RATIO Normal 10-20 [facility] Comment on above: Performed By: #### L 100.0100, L500.4050, L501.2450 ####[facility] [address] [place], [address] Calcium [Mass/Vol] 8.3 mg/dL Normal 7.6-11.0 [facility] Comment on above: Performed By: #### L 100.0100, L500.4050, L501.2450 ####[facility] [address] [place], [address] Chloride [Moles/Vol] 102 mmol/L Normal 98-108 [facility] Comment on above: Performed By: #### L 100.0100, L500.4050, L501.2450 ####[facility] [address] [place], [address] CO2 [Moles/Vol] 18.4 mmol/L Low 21.0-32.0 [facility] Comment on above: Performed By: #### L 100.0100, L500.4050, L501.2450 ####[facility] [address] [place], [address] Creatinine [Mass/Vol] 1.78 mg/dL High 0.70-1.20 [facility] Comment on above: Result Comment: Icte daquan present, Results may be affected. Performed By: #### L 100.0100, L500.4050, L501.2450 ####[facility] [address] [place], [address] ECRCL 53.12 ml/min Normal 50-250 [facility] Comment on above: Performed By: #### L 100.0100, L500.4050, L501.2450 ####[facility] [address] [place], [address] GAP 14 Normal 5-15 [facility] Comment on above: Performed By: #### L 100.0100, L500.4050, L501.2450 ####[facility] [address] [place], [address] GFR/1.73 sq M.predicted among non-blacks MDRD (S/P/Bld) [Vol rate/Area] 44 mL/min/{1.73_m2} Low >60 [facility] Comment on above: Result Comment: mL/m in/1.73m2 CKD-EPI Creatinine Equation (2020) Performed By: #### L 100.0100, L500.4050, L501.2450 ####[facility] [address] [place], [address] Globulin (S) [Mass/Vol] 3.7 g/dL Normal 2.2-4.2 [facility] Comment on above: Performed By: #### L 100.0100, L500.4050, L501.2450 ####[facility] [address] [place], [address] Glucose [Mass/Vol] 169 mg/dL High 70-99 [facility] Comment on above: Performed By: #### L 100.0100, L500.4050, L501.2450 ####[facility] [address] [place], [address] Potassium [Moles/Vol] 3.4 mmol/L Normal 3.3-5.1 [facility] Comment on above: Result Comment: Hemo lysis present, Results??could be affected.?? Performed By: #### L 100.0100, L500.4050, L501.2450 ####[facility] [address] [place], [address] Sodium [Moles/Vol] 135 mmol/L Normal 133-145 [facility] Comment on above: Performed By: #### L 100.0100, L500.4050, L501.2450 ####[facility] [address] [place], [address] T PROT 5.8 g/dL Low 5.9-8.4 [facility] Comment on above: Performed By: #### L 100.0100, L500.4050, L501.2450 ####[facility] [address] [place], [address] Urea nitrogen [Mass/Vol] 25 mg/dL High 4-19 [facility] Comment on above: Performed By: #### L 100.0100, L500.4050, L501.2450 ####[facility] [address] [place], [address] Emergency Department Summary on 02-13-2025 Emergency Department Summary Normal [facility] Eosinophil percentageOrdered By: Luis Carlos Anderson on 02-13-2025 Eosinophils/100 WBC (Bld) 5.1 % High 0-5 [facility] Erythrocyte distribution wid th ratioOrdered By: Luis Carlos Anderson on 02-13-2025 Erythrocyte distribution width (RBC) [Ratio] 17.4 % High 11.6-14.6 [facility] Erythrocyte distribution wid th standard deviationOrdered By: Luis Carlos Anderson on 02-13-2025 Erythrocyte distribution width (RBC) [Ratio] 52.3 fl High 35.1-43.9 [facility] Glomerular filtration rate ( GFR) estimation/1.73 sq m using serum, plasma, or whole bOrdered By: Luis Carlos Anderson on 02-13-2025 GFR/1.73 sq M.predicted among non-blacks MDRD (S/P/Bld) [Vol rate/Area] 44 mL/min/{1.73_m2} Low >60 [facility] Hematocrit Auto (Bld) [Volum e fraction]Ordered By: Luis Carlos Anderson on 02-13-2025 Hematocrit (Bld) [Volume fraction] 24.1 % Low 40-54 [facility] Hemoglobin measurementOrdere d By: Luis Carlos Anderson on 02-13-2025 Hemoglobin (Bld) [Mass/Vol] 8.3 g/dL Low 13.0-16.5 [facility] Immature granulocytes/100 WB C Auto (Bld)Ordered By: Luis Carlos Anderson on 02-13-2025 Immature granulocytes/100 WBC (Bld) 0.500 % 0.0-0.9 [facility] Lipaseon 02-13-2025 Lipase [Catalytic activity/Vol] 60 U/L Normal 13-75 [facility] Comment on above: Result Comment: Siddhartha bhat note:LIPASE revised reference range effective 22.New Lipase methodology. Expected to produce lower valuesthan the previous assay method.NEW Reference Range: 13 - 75 U/L Performed By: #### L 100.0100, L500.4050, L501.2450 ####[facility] [address] [place], [place], [id number] MCV (mean corpuscular volume ) determinationOrdered By: Luis Carlos Anderson on 02-13-2025 MCV (RBC) [Entitic vol] 84.9 fL 80-94 [facility] Mean corpuscular hemoglobin (MCH) determinationOrdered By: Luis Carlos Anderson on 02-13-2025 MCH (RBC) [Entitic mass] 29.2 pg 27.0-32.0 [facility] Monocyte percentageOrdered B y: Luis Carlos Anderson on 02-13-2025 Monocytes/100 WBC (Bld) 16.1 % High 0-10 [facility] Neutrophil percentageOrdered By: Luis Carlos Anderson on 02-13-2025 Neutrophils/100 WBC (Bld) 64.1 % 47-70 [facility] No Panel InformationOrdered By: Luis Carlos Anderson on 02-13-2025 120 U/L High <38 [facility] Platelet countOrdered By: felipe Anderson on 02-13-2025 Platelets (Bld) [#/Vol] 83 10*3/uL Low 150-450 [facility] Platelet estimateOrdered By: Luis Carlos Anderson on 02-13-2025 Platelets LM Ql (Bld) MOD DEC ADEQ [facility] Potassium measurement (mass/ volume)Ordered By: Luis Carlos Anderson on 02-13-2025 Potassium (Unsp spec) [Mass/Vol] 3.4 mmol/L 3.3-5.1 [facility] RBC Auto (Bld) [#/Vol]Ordere d By: Luis Carlos Anderson on 02-13-2025 RBC (Bld) [#/Vol] 2.84 10*6/uL Low 4.6-6.2 [facility] Serum creatinine measurement (mass/volume)Ordered By: Luis Carlos Anderson on 02-13-2025 Creatinine [Mass/Vol] 1.78 mg/dL High 0.70-1.20 [facility] Serum globulin measurementOr dered By: Luis Carlos Anderson on 02-13-2025 Globulin (S) [Mass/Vol] 3.7 g/dL 2.2-4.2 [facility] Serum glucose measurement (m ass/volume)Ordered By: Luis Carlos Anderson on 02-13-2025 Glucose [Mass/Vol] 169 mg/dL High 70-99 [facility] Serum or plasma alanine thomas otransferase (ALT) measurementOrdered By: Luis Carlos Anderson on 02-13-2025 ALT [Catalytic activity/Vol] 53 U/L High <47 [facility] Serum or plasma albumin roosevelt urement (mass/volume)Ordered By: Lui sCarlos Anderson on 02-13-2025 Albumin [Mass/Vol] 2.2 g/dL Low 3.5-5.0 [facility] Serum or plasma albumin/glob ulin mass ratioOrdered By: Luis Carlos Anderson on 02-13-2025 Albumin/Globulin [Mass ratio] 0.6 {ratio} Low 0.9-2.4 [facility] Serum or plasma alkaline kendrick sphatase measurementOrdered By: Luis Carlos Anderson on 02-13-2025 ALP [Catalytic activity/Vol] 335 U/L High 40-129 [facility] Serum or plasma calcium roosevelt urement (mass/volume)Ordered By: Luis Carlos Anderson on 02-13-2025 Calcium [Mass/Vol] 8.3 mg/dL 7.6-11.0 [facility] Serum or plasma urea nitroge n measurement (mass/volume)Ordered By: Luis Carlos Anderson on 02-13-2025 Urea nitrogen [Mass/Vol] 25 mg/dL High 4-19 [facility] Sodium levelOrdered By: Yunior Anderson on 02-13-2025 Sodium [Moles/Vol] 135 mmol/L 133-145 [facility] Total proteinOrdered By: Emmy alexandria Anderson on 02-13-2025 Protein [Mass/Vol] 5.8 g/dL Low 5.9-8.4 [facility] White blood cell (WBC) count Ordered By: Luis Carlos Justin on 02-13-2025 WBC (Bld) [#/Vol] 8.6 10*3/uL 4.4-11.0 [facility] Operative Reporton Operative Report Normal [facility] Paracentesis with USon 02-11 Paracentesis with US Normal [facility] [place] Emergency Department Summary on 02-08-2025 Emergency Department Summary Normal [facility] Abdomen/Pelvis W IV Cont ONL Yon 02-07-2025 Abdomen/Pelvis W IV Cont ONLY Normal [facility] Absolute lymphocyte countOrd ered By: ED PROVIDER on 02-07-2025 Lymphocytes Auto (Unsp spec) [#/Vol] 1.39 10*3/uL 0.83-4.51 [facility] Anion gap in Serum or Plasma Ordered By: ED PROVIDER on 02-07-2025 Anion gap [Moles/Vol] 9 mmol/L 5-15 [facility] Automated lymphocyte count a s percentage of total leukocytesOrdered By: ED PROVIDER on 02-07-2025 Lymphocytes/100 WBC Auto (Unsp spec) 12.8 % Low 19-41 [facility] BUN/creatinine ratioOrdered By: ED PROVIDER on 02-07-2025 Urea nitrogen/Creatinine [Mass ratio] 13.9 mg/mg 10-20 [facility] Basophil percentageOrdered B y: ED PROVIDER on 02-07-2025 Basophils/100 WBC (Bld) 0.5 % 0-1 [facility] Bilirubin, totalOrdered By: ED PROVIDER on 02-07-2025 Bilirubin [Mass/Vol] 1.92 mg/dL High 0.00-1.30 [facility] CBC W/Diff, Automatedon Absolute Lymph 1.39 X10 3/uL Normal 0.83-4.51 [facility] Comment on above: Performed By: #### L 500.4050, L100.0100, L501.2450 ####[facility] [address] [place], [address] Absolute Neut 7.9 X10 3/uL High 2.0-7.7 [facility] Comment on above: Performed By: #### L 500.4050, L100.0100, L501.2450 ####[facility] [address] [place], [address] Basophils/100 WBC (Bld) 0.5 % Normal 0-1 [facility] Comment on above: Performed By: #### L 500.4050, L100.0100, L501.2450 ####[facility] [address] [place], [address] Eosinophils/100 WBC (Bld) 5.4 % High 0-5 [facility] Comment on above: Performed By: #### L 500.4050, L100.0100, L501.2450 ####[facility] [address] [place], [address] Erythrocyte distribution width (RBC) [Ratio] 17.9 % High 11.6-14.6 [facility] Comment on above: Performed By: #### L 500.4050, L100.0100, L501.2450 ####[facility] [address] [place], [address] Hematocrit (Bld) [Volume fraction] 28.8 % Low 40-54 [facility] Comment on above: Performed By: #### L 500.4050, L100.0100, L501.2450 ####[facility] [address] [place], [address] Hemoglobin (Bld) [Mass/Vol] 9.2 g/dL Low 13.0-16.5 [facility] Comment on above: Performed By: #### L 500.4050, L100.0100, L501.2450 ####[facility] [address] [place], [address] IG% 0.400 Normal 0.0-0.9 [facility] Comment on above: Result Comment: IG% - Immature Granulocytes (promyelocytes, myelocytes andmetamyelocytes) > 1% indicates that a LEFT SHIFT is Present. Performed By: #### L 500.4050, L100.0100, L501.2450 ####[facility] [address] [place], [address] Lymphocytes/100 WBC (Bld) 12.8 % Low 19-41 [facility] Comment on above: Performed By: #### L 500.4050, L100.0100, L501.2450 ####[facility] [address] [place], [address] MCH (RBC) [Entitic mass] 29.0 pg Normal 27.0-32.0 [facility] Comment on above: Performed By: #### L 500.4050, L100.0100, L501.2450 ####[facility] [address] [place], [address] MCHC (RBC) [Mass/Vol] 31.9 g/dL Low 32-36 [facility] Comment on above: Performed By: #### L 500.4050, L100.0100, L501.2450 ####[facility] [address] [place], [address] MCV (RBC) [Entitic vol] 90.9 fL Normal 80-94 [facility] Comment on above: Performed By: #### L 500.4050, L100.0100, L501.2450 ####[facility] [address] [place], [address] Monocytes/100 WBC (Bld) 8.1 % Normal 0-10 [facility] Comment on above: Performed By: #### L 500.4050, L100.0100, L501.2450 ####[facility] [address] [place], [address] Neutrophils/100 WBC (Bld) 72.8 % High 47-70 [facility] Comment on above: Performed By: #### L 500.4050, L100.0100, L501.2450 ####[facility] [address] [place], [address] Nucleated RBC (Bld) [#/Vol] 0 10*3/uL Normal 0-5 [facility] Comment on above: Performed By: #### L 500.4050, L100.0100, L501.2450 ####[facility] [address] [place], [address] Platelet mean volume (Bld) [Entitic vol] 10.1 fL Normal 6.2-12.0 [facility] Comment on above: Performed By: #### L 500.4050, L100.0100, L501.2450 ####[facility] [address] [place], [address] Platelets (Bld) [#/Vol] 131 10*3/uL Low 150-450 [facility] Comment on above: Performed By: #### L 500.4050, L100.0100, L501.2450 ####[facility] [address] [place], [address] RBC (Bld) [#/Vol] 3.17 10*6/uL Low 4.6-6.2 [facility] Comment on above: Performed By: #### L 500.4050, L100.0100, L501.2450 ####[facility] [address] [place], [address] RDW SD 58.3 fl High 35.1-43.9 [facility] Comment on above: Performed By: #### L 500.4050, L100.0100, L501.2450 ####[facility] [address] [place], [address] WBC (Bld) [#/Vol] 10.8 10*3/uL Normal 4.4-11.0 [facility] Comment on above: Performed By: #### L 500.4050, L100.0100, L501.2450 ####[facility] [address] [place], [address] Carbon dioxide, total [Moles /volume] in Central venous bloodOrdered By: ED PROVIDER on 02-07-2025 CO2 [Moles/Vol] 22.7 mmol/L 21.0-32.0 [facility] Chloride assayOrdered By: ED PROVIDER on 02-07-2025 Chloride [Moles/Vol] 106 mmol/L 98-108 [facility] Comprehensive Metabolic Prof ilon 02-07-2025 Albumin [Mass/Vol] 2.2 g/dL Low 3.5-5.0 [facility] Comment on above: Performed By: #### L 500.4050, L100.0100, L501.2450 ####[facility] [address] [place], [address] Albumin/Globulin [Mass ratio] 0.6 {ratio} Low 0.9-2.4 [facility] Comment on above: Performed By: #### L 500.4050, L100.0100, L501.2450 ####[facility] [address] [place], [address] ALK PHOS 218 U/L High 40-129 [facility] Comment on above: Performed By: #### L 500.4050, L100.0100, L501.2450 ####[facility] [address] [place], [address] ALT [Catalytic activity/Vol] 30 U/L Normal <=46 [facility] Comment on above: Performed By: #### L 500.4050, L100.0100, L501.2450 ####[facility] [address] [place], [address] AST [Catalytic activity/Vol] 55 U/L High <=37 [facility] Comment on above: Performed By: #### L 500.4050, L100.0100, L501.2450 ####[facility] [address] [place], [address] Bilirubin [Mass/Vol] 1.92 mg/dL High 0.00-1.30 [facility] Comment on above: Performed By: #### L 500.4050, L100.0100, L501.2450 ####[facility] [address] [place], [address] BUN/CRE 13.9 RATIO Normal 10-20 [facility] Comment on above: Performed By: #### L 500.4050, L100.0100, L501.2450 ####[facility] [address] [place], [address] Calcium [Mass/Vol] 8.4 mg/dL Normal 7.6-11.0 [facility] Comment on above: Performed By: #### L 500.4050, L100.0100, L501.2450 ####[facility] [address] [place], [address] Chloride [Moles/Vol] 106 mmol/L Normal 98-108 [facility] Comment on above: Performed By: #### L 500.4050, L100.0100, L501.2450 ####[facility] [address] [place], [address] CO2 [Moles/Vol] 22.7 mmol/L Normal 21.0-32.0 [facility] Comment on above: Performed By: #### L 500.4050, L100.0100, L501.2450 ####[facility] [address] [place], [address] Creatinine [Mass/Vol] 1.05 mg/dL Normal 0.70-1.20 [facility] Comment on above: Performed By: #### L 500.4050, L100.0100, L501.2450 ####[facility] [address] [place], [address] GAP 9 Normal 5-15 [facility] Comment on above: Performed By: #### L 500.4050, L100.0100, L501.2450 ####[facility] [address] [place], [address] GFR/1.73 sq M.predicted among non-blacks MDRD (S/P/Bld) [Vol rate/Area] 82 mL/min/{1.73_m2} Normal >60 [facility] Comment on above: Result Comment: mL/m in/1.73m2 CKD-EPI Creatinine Equation (2020) Performed By: #### L 500.4050, L100.0100, L501.2450 ####[facility] [address] [place], [address] Globulin (S) [Mass/Vol] 3.5 g/dL Normal 2.2-4.2 [facility] Comment on above: Performed By: #### L 500.4050, L100.0100, L501.2450 ####[facility] [address] [place], [address] Glucose [Mass/Vol] 142 mg/dL High 70-99 [facility] Comment on above: Performed By: #### L 500.4050, L100.0100, L501.2450 ####[facility] [address] [place], [address] Potassium [Moles/Vol] 3.7 mmol/L Normal 3.3-5.1 [facility] Comment on above: Performed By: #### L 500.4050, L100.0100, L501.2450 ####[facility] [address] [place], [address] Sodium [Moles/Vol] 137 mmol/L Normal 133-145 [facility] Comment on above: Performed By: #### L 500.4050, L100.0100, L501.2450 ####[facility] [address] [place], [address] T PROT 5.8 g/dL Low 5.9-8.4 [facility] Comment on above: Performed By: #### L 500.4050, L100.0100, L501.2450 ####[facility] [address] [place], [address] Urea nitrogen [Mass/Vol] 15 mg/dL Normal 4-19 [facility] Comment on above: Performed By: #### L 500.4050, L100.0100, L501.2450 ####[facility] [address] [place], [address] Eosinophil percentageOrdered By: ED PROVIDER on 02-07-2025 Eosinophils/100 WBC (Bld) 5.4 % High 0-5 [facility] Erythrocyte distribution wid th ratioOrdered By: ED PROVIDER on 02-07-2025 Erythrocyte distribution width (RBC) [Ratio] 17.9 % High 11.6-14.6 [facility] Erythrocyte distribution wid th standard deviationOrdered By: ED PROVIDER on 02-07-2025 Erythrocyte distribution width (RBC) [Ratio] 58.3 fl High 35.1-43.9 [facility] Glomerular filtration rate ( GFR) estimation/1.73 sq m using serum, plasma, or whole bOrdered By: ED PROVIDER on 02-07-2025 GFR/1.73 sq M.predicted among non-blacks MDRD (S/P/Bld) [Vol rate/Area] 82 mL/min/{1.73_m2} >60 [facility] Hematocrit Auto (Bld) [Volum e fraction]Ordered By: ED PROVIDER on 02-07-2025 Hematocrit (Bld) [Volume fraction] 28.8 % Low 40-54 [facility] Hemoglobin measurementOrdere d By: ED PROVIDER on 02-07-2025 Hemoglobin (Bld) [Mass/Vol] 9.2 g/dL Low 13.0-16.5 [facility] Immature granulocytes/100 WB C Auto (Bld)Ordered By: ED PROVIDER on 02-07-2025 Immature granulocytes/100 WBC (Bld) 0.400 % 0.0-0.9 [facility] Lipaseon 02-07-2025 Lipase [Catalytic activity/Vol] 35 U/L Normal 13-75 [facility] Comment on above: Result Comment: Siddhartha bhat note:LIPASE revised reference range effective 22.New Lipase methodology. Expected to produce lower valuesthan the previous assay method.NEW Reference Range: 13 - 75 U/L Performed By: #### L 500.4050, L100.0100, L501.2450 ####[facility] [address] [place], [address] MCV (mean corpuscular volume ) determinationOrdered By: ED PROVIDER on 02-07-2025 MCV (RBC) [Entitic vol] 90.9 fL 80-94 [facility] Mean corpuscular hemoglobin (MCH) determinationOrdered By: ED PROVIDER on 02-07-2025 MCH (RBC) [Entitic mass] 29.0 pg 27.0-32.0 [facility] Monocyte percentageOrdered B y: ED PROVIDER on 02-07-2025 Monocytes/100 WBC (Bld) 8.1 % 0-10 [facility] Neutrophil percentageOrdered By: ED PROVIDER on 02-07-2025 Neutrophils/100 WBC (Bld) 72.8 % High 47-70 [facility] No Panel InformationOrdered By: ED PROVIDER on 02-07-2025 55 U/L High <38 [facility] Platelet countOrdered By: ED PROVIDER on 02-07-2025 Platelets (Bld) [#/Vol] 131 10*3/uL Low 150-450 [facility] Potassium measurement (mass/ volume)Ordered By: ED PROVIDER on 02-07-2025 Potassium (Unsp spec) [Mass/Vol] 3.7 mmol/L 3.3-5.1 [facility] RBC Auto (Bld) [#/Vol]Ordere d By: ED PROVIDER on 02-07-2025 RBC (Bld) [#/Vol] 3.17 10*6/uL Low 4.6-6.2 [facility] Serum creatinine measurement (mass/volume)Ordered By: ED PROVIDER on 02-07-2025 Creatinine [Mass/Vol] 1.05 mg/dL 0.70-1.20 [facility] Serum globulin measurementOr dered By: ED PROVIDER on 02-07-2025 Globulin (S) [Mass/Vol] 3.5 g/dL 2.2-4.2 [facility] Serum glucose measurement (m ass/volume)Ordered By: ED PROVIDER on 02-07-2025 Glucose [Mass/Vol] 142 mg/dL High 70-99 [facility] Serum or plasma alanine thomas otransferase (ALT) measurementOrdered By: ED PROVIDER on 02-07-2025 ALT [Catalytic activity/Vol] 30 U/L <47 [facility] Serum or plasma albumin roosevelt urement (mass/volume)Ordered By: ED PROVIDER on 02-07-2025 Albumin [Mass/Vol] 2.2 g/dL Low 3.5-5.0 [facility] Serum or plasma albumin/glob ulin mass ratioOrdered By: ED PROVIDER on 02-07-2025 Albumin/Globulin [Mass ratio] 0.6 {ratio} Low 0.9-2.4 [facility] Serum or plasma alkaline kendrick sphatase measurementOrdered By: ED PROVIDER on 02-07-2025 ALP [Catalytic activity/Vol] 218 U/L High 40-129 [facility] Serum or plasma calcium roosevelt urement (mass/volume)Ordered By: ED PROVIDER on 02-07-2025 Calcium [Mass/Vol] 8.4 mg/dL 7.6-11.0 [facility] Serum or plasma urea nitroge n measurement (mass/volume)Ordered By: ED PROVIDER on 02-07-2025 Urea nitrogen [Mass/Vol] 15 mg/dL 4-19 [facility] Sodium levelOrdered By: ED P ROREBECCADER on 02-07-2025 Sodium [Moles/Vol] 137 mmol/L 133-145 [facility] Total proteinOrdered By: ED PROVIDER on 02-07-2025 Protein [Mass/Vol] 5.8 g/dL Low 5.9-8.4 [facility] White blood cell (WBC) count Ordered By: ED PROVIDER on 02-07-2025 WBC (Bld) [#/Vol] 10.8 10*3/uL 4.4-11.0 [facility] Culture, Blood (WB)on 2024 CUB Blood cultures x2, f rom two different sites No growth in 5 days. Normal [facility] Comment on above: Performed By: #### M 200.1000 ####[facility] [address] [place], [address] Anion gap in Serum or Plasma Ordered By: Yaritza Leo on 01-31-2025 Anion gap [Moles/Vol] 9 mmol/L 5-15 [facility] BUN/creatinine ratioOrdered By: Yaritza Leo on 01-31-2025 Urea nitrogen/Creatinine [Mass ratio] 10.7 mg/mg 10- [facility] Basic Metabolic Profile (BMP )on 01-31-2025 BUN/CRE 10.7 RATIO Normal - [facility] Comment on above: Performed By: #### L 500.2500, L100.0500 ####[facility] [address] [place], [address] Calcium [Mass/Vol] 8.5 mg/dL Normal 7.6-11.0 [facility] Comment on above: Performed By: #### L 500.2500, L100.0500 ####[facility] [address] [place], [address] Chloride [Moles/Vol] 102 mmol/L Normal 98-108 [facility] Comment on above: Performed By: #### L 500.2500, L100.0500 ####[facility] [address] [place], [address] CO2 [Moles/Vol] 22.6 mmol/L Normal 21.0-32.0 [facility] Comment on above: Performed By: #### L 500.2500, L100.0500 ####[facility] [address] [place], [address] Creatinine [Mass/Vol] 0.95 mg/dL Normal 0.70-1.20 [facility] Comment on above: Performed By: #### L 500.2500, L100.0500 ####[facility] [address] [place], [address] ECRCL 108.71 ml/min Normal 50-250 [facility] Comment on above: Performed By: #### L 500.2500, L100.0500 ####[facility] [address] [place], [address] GAP 9 Normal 5-15 [facility] Comment on above: Performed By: #### L 500.2500, L100.0500 ####[facility] [address] [place], [address] GFR/1.73 sq M.predicted among non-blacks MDRD (S/P/Bld) [Vol rate/Area] 93 mL/min/{1.73_m2} Normal >60 [facility] Comment on above: Result Comment: mL/m in/1.73m2 CKD-EPI Creatinine Equation (2020) Performed By: #### L 500.2500, L100.0500 ####[facility] [address] [place], [address] Glucose [Mass/Vol] 143 mg/dL High 70-99 [facility] Comment on above: Performed By: #### L 500.2500, L100.0500 ####[facility] [address] [place], [address] Potassium [Moles/Vol] 3.9 mmol/L Normal 3.3-5.1 [facility] Comment on above: Performed By: #### L 500.2500, L100.0500 ####[facility] [address] [place], [address] Sodium [Moles/Vol] 133 mmol/L Normal 133-145 [facility] Comment on above: Performed By: #### L 500.2500, L100.0500 ####[facility] [address] [place], [address] Urea nitrogen [Mass/Vol] 10 mg/dL Normal 4-19 [facility] Comment on above: Performed By: #### L 500.2500, L100.0500 ####[facility] [address] [place], [address] Bedside Glucoseon 01-31-2025 FINGERSTICK GLU 129 mg/dL High 74-106 [facility] Comment on above: Result Comment: BRISA GEMENT OF PATIENT CARE PER NURSING PROTOCOL Performed By: #### L 501.080 ####[facility] [address] [place], [address] FINGERSTICK GLU 179 mg/dL High 74-106 [facility] Comment on above: Result Comment: BRISA GEMENT OF PATIENT CARE PER NURSING PROTOCOL Performed By: #### L 501.080 ####[facility] [address] [place], [address] FINGERSTICK GLU 149 mg/dL High 74-106 [facility] Comment on above: Result Comment: BRISA GEMENT OF PATIENT CARE PER NURSING PROTOCOL Performed By: #### L 501.080 ####[facility] [address] [place], [address] CBC-Complete Blood Cnt No Di ffon 01-31-2025 Erythrocyte distribution width (RBC) [Ratio] 17.7 % High 11.6-14.6 [facility] Comment on above: Performed By: #### L 500.2500, L100.0500 ####[facility] [address] [place], [address] Hematocrit (Bld) [Volume fraction] 23.8 % Low 40-54 [facility] Comment on above: Performed By: #### L 500.2500, L100.0500 ####[facility] [address] [place], [address] Hemoglobin (Bld) [Mass/Vol] 7.9 g/dL Low 13.0-16.5 [facility] Comment on above: Performed By: #### L 500.2500, L100.0500 ####[facility] [address] [place], [address] MCH (RBC) [Entitic mass] 29.8 pg Normal 27.0-32.0 [facility] Comment on above: Performed By: #### L 500.2500, L100.0500 ####[facility] [address] [place], [address] MCHC (RBC) [Mass/Vol] 33.2 g/dL Normal 32-36 [facility] Comment on above: Performed By: #### L 500.2500, L100.0500 ####[facility] [address] [place], [address] MCV (RBC) [Entitic vol] 89.8 fL Normal 80-94 [facility] Comment on above: Performed By: #### L 500.2500, L100.0500 ####[facility] [address] [place], [address] Platelet mean volume (Bld) [Entitic vol] 10.6 fL Normal 6.2-12.0 [facility] Comment on above: Performed By: #### L 500.2500, L100.0500 ####[facility] [address] [place], [address] Platelets (Bld) [#/Vol] 108 10*3/uL Low 150-450 [facility] Comment on above: Performed By: #### L 500.2500, L100.0500 ####[facility] [address] [place], [address] RBC (Bld) [#/Vol] 2.65 10*6/uL Low 4.6-6.2 [facility] Comment on above: Performed By: #### L 500.2500, L100.0500 ####[facility] [address] [place], [address] RDW SD 56.9 fl High 35.1-43.9 [facility] Comment on above: Performed By: #### L 500.2500, L100.0500 ####[facility] [address] [place], [address] WBC (Bld) [#/Vol] 5.9 10*3/uL Normal 4.4-11.0 [facility] Comment on above: Performed By: #### L 500.2500, L100.0500 ####[facility] [address] [place], [address] Carbon dioxide, total [Moles /volume] in Central venous bloodOrdered By: Yaritza Leo on 01-31-2025 CO2 [Moles/Vol] 22.6 mmol/L 21.0-32.0 [facility] Chloride assayOrdered By: Raad eLo on 01-31-2025 Chloride [Moles/Vol] 102 mmol/L 98-108 [facility] Erythrocyte distribution wid th ratioOrdered By: Yaritza Leo on 01-31-2025 Erythrocyte distribution width (RBC) [Ratio] 17.7 % High 11.6-14.6 [facility] Erythrocyte distribution wid th standard deviationOrdered By: Yaritza Leo on 01-31-2025 Erythrocyte distribution width (RBC) [Ratio] 56.9 fl High 35.1-43.9 [facility] Glomerular filtration rate ( GFR) estimation/1.73 sq m using serum, plasma, or whole bOrdered By: Yaritza Leo on 01-31-2025 GFR/1.73 sq M.predicted among non-blacks MDRD (S/P/Bld) [Vol rate/Area] 93 mL/min/{1.73_m2} >60 [facility] deOrdered By: Yaritza Leo on 01-31-2025 Glucose [Mass/Vol] 129 mg/dL High 74-106 [facility] Hematocrit Auto (Bld) [Volum e fraction]Ordered By: Yaritza Leo on 01-31-2025 Hematocrit (Bld) [Volume fraction] 23.8 % Low 40-54 [facility] Hemoglobin measurementOrdere d By: Yaritza Leo on 01-31-2025 Hemoglobin (Bld) [Mass/Vol] 7.9 g/dL Low 13.0-16.5 [facility] MCV (mean corpuscular volume ) determinationOrdered By: Yaritza Leo on 01-31-2025 MCV (RBC) [Entitic vol] 89.8 fL 80-94 [facility] Mean corpuscular hemoglobin (MCH) determinationOrdered By: Yaritza Leo on 01-31-2025 MCH (RBC) [Entitic mass] 29.8 pg 27.0-32.0 [facility] Platelet countOrdered By: Raad Leo on 01-31-2025 Platelets (Bld) [#/Vol] 108 10*3/uL Low 150-450 [facility] Potassium measurement (mass/ volume)Ordered By: Yaritza Leo on 01-31-2025 Potassium (Unsp spec) [Mass/Vol] 3.9 mmol/L 3.3-5.1 [facility] RBC Auto (Bld) [#/Vol]Ordere d By: Yaritza Leo on 01-31-2025 RBC (Bld) [#/Vol] 2.65 10*6/uL Low 4.6-6.2 [facility] Serum creatinine measurement (mass/volume)Ordered By: Yaritza Leo on 01-31-2025 Creatinine [Mass/Vol] 0.95 mg/dL 0.70-1.20 [facility] Serum glucose measurement (m ass/volume)Ordered By: Yaritza Leo on 01-31-2025 Glucose [Mass/Vol] 143 mg/dL High 70-99 [facility] Serum or plasma calcium roosevelt urement (mass/volume)Ordered By: Yaritza Leo on 01-31-2025 Calcium [Mass/Vol] 8.5 mg/dL 7.6-11.0 [facility] Serum or plasma urea nitroge n measurement (mass/volume)Ordered By: Yaritza Leo on 01-31-2025 Urea nitrogen [Mass/Vol] 10 mg/dL 4-19 [facility] Sodium levelOrdered By: Saritha Leo on 01-31-2025 Sodium [Moles/Vol] 133 mmol/L 133-145 [facility] White blood cell (WBC) count Ordered By: Yaritza Leo on 01-31-2025 WBC (Bld) [#/Vol] 5.9 10*3/uL 4.4-11.0 [facility] Absolute lymphocyte countOrd ered By: Yaritza Leo on 01-30-2025 Lymphocytes Auto (Unsp spec) [#/Vol] 1.08 10*3/uL 0.83-4.51 [facility] Automated lymphocyte count a s percentage of total leukocytesOrdered By: Yaritza Leo on 01-30-2025 Lymphocytes/100 WBC Auto (Unsp spec) 20.0 % 19-41 [facility] Basic Metabolic Profile (BMP )on 01-30-2025 BUN/CRE 10.1 RATIO Normal 10-20 [facility] Comment on above: Performed By: #### L 501.5200, L500.2500, L501.2300, L100.0100 ####[facility] [address] [place], [address] Calcium [Mass/Vol] 8.4 mg/dL Normal 7.6-11.0 [facility] Comment on above: Performed By: #### L 501.5200, L500.2500, L501.2300, L100.0100 ####[facility] [address] [place], [address] Chloride [Moles/Vol] 101 mmol/L Normal 98-108 [facility] [place] Comment on above: Performed By: #### L 501.5200, L500.2500, L501.2300, L100.0100 ####[facility] [address] [place], [address] CO2 [Moles/Vol] 17.3 mmol/L Low 21.0-32.0 [facility] Comment on above: Performed By: #### L 501.5200, L500.2500, L501.2300, L100.0100 ####[facility] [address] [place], [address] Creatinine [Mass/Vol] 0.93 mg/dL Normal 0.70-1.20 [facility] Comment on above: Performed By: #### L 501.5200, L500.2500, L501.2300, L100.0100 ####[facility] [address] [place], [address] ECRCL 111.05 ml/min Normal 50-250 [facility] Comment on above: Performed By: #### L 501.5200, L500.2500, L501.2300, L100.0100 ####[facility] [address] [place], [address] GAP 13 Normal 5-15 [facility] Comment on above: Performed By: #### L 501.5200, L500.2500, L501.2300, L100.0100 ####[facility] [address] [place], [address] GFR/1.73 sq M.predicted among non-blacks MDRD (S/P/Bld) [Vol rate/Area] 95 mL/min/{1.73_m2} Normal >60 [facility] Comment on above: Result Comment: mL/m in/1.73m2 CKD-EPI Creatinine Equation (2020) Performed By: #### L 501.5200, L500.2500, L501.2300, L100.0100 ####[facility] [address] [place], [address] Glucose [Mass/Vol] 139 mg/dL High 70-99 [facility] Comment on above: Performed By: #### L 501.5200, L500.2500, L501.2300, L100.0100 ####[facility] [address] [place], [address] Potassium [Moles/Vol] 3.5 mmol/L Normal 3.3-5.1 [facility] Comment on above: Result Comment: Hemo lysis present, Results??could be affected.?? Performed By: #### L 501.5200, L500.2500, L501.2300, L100.0100 ####[facility] [address] [place], [address] Sodium [Moles/Vol] 131 mmol/L Low 133-145 [facility] Comment on above: Performed By: #### L 501.5200, L500.2500, L501.2300, L100.0100 ####[facility] [address] [place], [address] Urea nitrogen [Mass/Vol] 9 mg/dL Normal 4-19 [facility] Comment on above: Performed By: #### L 501.5200, L500.2500, L501.2300, L100.0100 ####[facility] [address] [place], [address] Basophil percentageOrdered B y: Yaritza Leo on 01-30-2025 Basophils/100 WBC (Bld) 0.7 % Normal 0-1 [facility] Comment on above: Performed By: #### L 501.5200, L500.2500, L501.2300, L100.0100 ####[facility] [address] [place], [address] Bedside Glucoseon 01-30-2025 FINGERSTICK GLU 170 mg/dL High 74-106 [facility] Comment on above: Result Comment: BRISA GEMENT OF PATIENT CARE PER NURSING PROTOCOL Performed By: #### L 501.080 ####[facility] [address] [place], [address] FINGERSTICK GLU 122 mg/dL High -106 [facility] Comment on above: Result Comment: BRISA GEMENT OF PATIENT CARE PER NURSING PROTOCOL Performed By: #### L 501.080 ####[facility] [address] [place], [address] FINGERSTICK GLU 119 mg/dL High -106 [facility] Comment on above: Result Comment: BRISA GEMENT OF PATIENT CARE PER NURSING PROTOCOL Performed By: #### L 501.080 ####[facility] [address] [place], [address] FINGERSTICK GLU 116 mg/dL High [facility] Comment on above: Result Comment: BRISA GEMENT OF PATIENT CARE PER NURSING PROTOCOL Performed By: #### L 501.080 ####[facility] [address] [place], [address] CBC W/Diff, Automatedon 06- Absolute Lymph 1.08 X10 3/uL Normal 0.83-4.51 [facility] Comment on above: Performed By: #### L 501.5200, L500.2500, L501.2300, L100.0100 ####[facility] [address] [place], [address] Absolute Neut 2.9 X10 3/uL Normal 2.0-7.7 [facility] Comment on above: Performed By: #### L 501.5200, L500.2500, L501.2300, L100.0100 ####[facility] [address] [place], [address] Erythrocyte distribution width (RBC) [Ratio] 18.1 % High 11.6-14.6 [facility] Comment on above: Performed By: #### L 501.5200, L500.2500, L501.2300, L100.0100 ####[facility] [address] [place], [address] Hematocrit (Bld) [Volume fraction] 24.1 % Low 40-54 [facility] Comment on above: Performed By: #### L 501.5200, L500.2500, L501.2300, L100.0100 ####[facility] [address] [place], [address] Hemoglobin (Bld) [Mass/Vol] 7.7 g/dL Low 13.0-16.5 [facility] Comment on above: Performed By: #### L 501.5200, L500.2500, L501.2300, L100.0100 ####[facility] [address] [place], [address] IG% 0.600 Normal 0.0-0.9 [facility] Comment on above: Result Comment: IG% - Immature Granulocytes (promyelocytes, myelocytes andmetamyelocytes) > 1% indicates that a LEFT SHIFT is Present. Performed By: #### L 501.5200, L500.2500, L501.2300, L100.0100 ####[facility] [address] [place], [address] Lymphocytes/100 WBC (Bld) 20.0 % Normal 19-41 [facility] Comment on above: Performed By: #### L 501.5200, L500.2500, L501.2300, L100.0100 ####[facility] [address] [place], [address] MCH (RBC) [Entitic mass] 29.2 pg Normal 27.0-32.0 [facility] Comment on above: Performed By: #### L 501.5200, L500.2500, L501.2300, L100.0100 ####[facility] [address] [place], [address] MCHC (RBC) [Mass/Vol] 32.0 g/dL Normal 32-36 [facility] Comment on above: Performed By: #### L 501.5200, L500.2500, L501.2300, L100.0100 ####[facility] [address] [place], [address] MCV (RBC) [Entitic vol] 91.3 fL Normal 80-94 [facility] Comment on above: Performed By: #### L 501.5200, L500.2500, L501.2300, L100.0100 ####[facility] [address] [place], [address] Nucleated RBC (Bld) [#/Vol] 0 10*3/uL Normal 0-5 [facility] Comment on above: Performed By: #### L 501.5200, L500.2500, L501.2300, L100.0100 ####[facility] [address] [place], [address] Platelet mean volume (Bld) [Entitic vol] 10.5 fL Normal 6.2-12.0 [facility] Comment on above: Performed By: #### L 501.5200, L500.2500, L501.2300, L100.0100 ####[facility] [address] [place], [address] Platelets (Bld) [#/Vol] 108 10*3/uL Low 150-450 [facility] Comment on above: Performed By: #### L 501.5200, L500.2500, L501.2300, L100.0100 ####[facility] [address] [place], [address] RBC (Bld) [#/Vol] 2.64 10*6/uL Low 4.6-6.2 [facility] Comment on above: Performed By: #### L 501.5200, L500.2500, L501.2300, L100.0100 ####[facility] [address] [place], [address] RDW SD 61.1 fl High 35.1-43.9 [facility] Comment on above: Performed By: #### L 501.5200, L500.2500, L501.2300, L100.0100 ####[facility] [address] [place], [address] WBC (Bld) [#/Vol] 5.4 10*3/uL Normal 4.4-11.0 [facility] Comment on above: Performed By: #### L 501.5200, L500.2500, L501.2300, L100.0100 ####[facility] [address] [place], [address] Eosinophil percentageOrdered By: Yaritza Leo on 01-30-2025 Eosinophils/100 WBC (Bld) 7.0 % High 0-5 [facility] Comment on above: Performed By: #### L 501.5200, L500.2500, L501.2300, L100.0100 ####[facility] [address] [place], [address] Immature granulocytes/100 WB C Auto (Bld)Ordered By: Yaritza eLo on 01-30-2025 Immature granulocytes/100 WBC (Bld) 0.600 % 0.0-0.9 [facility] Magnesiumon 01-30-2025 Magnesium [Mass/Vol] 1.7 mg/dL Normal 1.5-2.2 [facility] Comment on above: Performed By: #### L 501.5200, L500.2500, L501.2300, L100.0100 ####[facility] [address] [place], [address] Magnesium measurement (mass/ volume)Ordered By: Yaritza Leo on 01-30-2025 Magnesium (Unsp spec) [Mass/Vol] 1.7 mg/dL 1.5-2.2 [facility] Monocyte percentageOrdered B y: Yaritza Leo on 01-30-2025 Monocytes/100 WBC (Bld) 18.5 % High 0-10 [facility] Comment on above: Performed By: #### L 501.5200, L500.2500, L501.2300, L100.0100 ####[facility] [address] [place], [address] Neutrophil percentageOrdered By: Yaritza Leo on 01-30-2025 Neutrophils/100 WBC (Bld) 53.2 % Normal 47-70 [facility] Comment on above: Performed By: #### L 501.5200, L500.2500, L501.2300, L100.0100 ####[facility] [address] [place], [address] Phosphoruson 01-30-2025 Phosphate [Mass/Vol] 2.7 mg/dL Normal 2.7-4.5 [facility] Comment on above: Performed By: #### L 501.5200, L500.2500, L501.2300, L100.0100 ####[facility] [address] [place], [address] Urine Cultureon 01-30-2025 URC Normal [facility] Comment on above: Performed By: #### M 100.2200 ####[facility] [address] [place], [address] Bedside Glucoseon 01-29-2025 FINGERSTICK GLU 174 mg/dL High 74-106 [facility] Comment on above: Result Comment: BRISA RASHAWN OF PATIENT CARE PER NURSING PROTOCOL Performed By: #### L 501.080 ####[facility] [address] [place], [address] FINGERSTICK GLU 163 mg/dL High 74-106 [facility] Comment on above: Result Comment: BRISA GEMENT OF PATIENT CARE PER NURSING PROTOCOL Performed By: #### L 501.080 ####[facility] [address] [place], [address] FINGERSTICK GLU 196 mg/dL High 74-106 [facility] Comment on above: Result Comment: BRISA GEMENT OF PATIENT CARE PER NURSING PROTOCOL Performed By: #### L 501.080 ####[facility] [address] [place], [address] FINGERSTICK GLU 237 mg/dL High -106 [facility] Comment on above: Result Comment: BRISA GEMENT OF PATIENT CARE PER NURSING PROTOCOL Performed By: #### L 501.080 ####[facility] [address] [place], [address] FINGERSTICK GLU 172 mg/dL High -106 [facility] Comment on above: Result Comment: BRISA GEMENT OF PATIENT CARE PER NURSING PROTOCOL Performed By: #### L 501.080 ####[facility] [address] [place], [address] Bilirubin, totalOrdered By: Boone Izquierdo on 01-29-2025 Bilirubin [Mass/Vol] 1.81 mg/dL High 0.00-1.30 [facility] CBC W/Diff, Automatedon 01-03 Absolute Lymph 0.83 X10 3/uL Normal 0.83-4.51 [facility] Comment on above: Performed By: #### L 500.4050, L100.0100 ####[facility] [address] [place], [address] Absolute Neut 3.0 X10 3/uL Normal 2.0-7.7 [facility] Comment on above: Performed By: #### L 500.4050, L100.0100 ####[facility] [address] [place], [address] Basophils/100 WBC (Bld) 0.8 % Normal 0-1 [facility] Comment on above: Performed By: #### L 500.4050, L100.0100 ####[facility] [address] [place], [address] Eosinophils/100 WBC (Bld) 5.3 % High 0-5 [facility] Comment on above: Performed By: #### L 500.4050, L100.0100 ####[facility] [address] [place], [address] Erythrocyte distribution width (RBC) [Ratio] 18.4 % High 11.6-14.6 [facility] Comment on above: Performed By: #### L 500.4050, L100.0100 ####[facility] [address] [place], [address] Hematocrit (Bld) [Volume fraction] 24.8 % Low 40-54 [facility] Comment on above: Performed By: #### L 500.4050, L100.0100 ####[facility] [address] [place], [address] Hemoglobin (Bld) [Mass/Vol] 8.1 g/dL Low 13.0-16.5 [facility] Comment on above: Performed By: #### L 500.4050, L100.0100 ####[facility] [address] [place], [address] IG% 0.800 Normal 0.0-0.9 [facility] Comment on above: Result Comment: IG% - Immature Granulocytes (promyelocytes, myelocytes andmetamyelocytes) > 1% indicates that a LEFT SHIFT is Present. Performed By: #### L 500.4050, L100.0100 ####[facility] [address] [place], [address] Lymphocytes/100 WBC (Bld) 17.1 % Low 19-41 [facility] Comment on above: Performed By: #### L 500.4050, L100.0100 ####[facility] [address] [place], [address] MCH (RBC) [Entitic mass] 29.6 pg Normal 27.0-32.0 [facility] Comment on above: Performed By: #### L 500.4050, L100.0100 ####[facility] [address] [place], [address] MCHC (RBC) [Mass/Vol] 32.7 g/dL Normal 32-36 [facility] Comment on above: Performed By: #### L 500.4050, L100.0100 ####[facility] [address] [place], [address] MCV (RBC) [Entitic vol] 90.5 fL Normal 80-94 [facility] Comment on above: Performed By: #### L 500.4050, L100.0100 ####[facility] [address] [place], [address] Monocytes/100 WBC (Bld) 15.2 % High 0-10 [facility] Comment on above: Performed By: #### L 500.4050, L100.0100 ####[facility] [address] [place], [address] Neutrophils/100 WBC (Bld) 60.8 % Normal 47-70 [facility] Comment on above: Performed By: #### L 500.4050, L100.0100 ####[facility] [address] [place], [address] Nucleated RBC (Bld) [#/Vol] 0 10*3/uL Normal 0-5 [facility] Comment on above: Performed By: #### L 500.4050, L100.0100 ####[facility] [address] [place], [address] Platelet mean volume (Bld) [Entitic vol] 11.6 fL Normal 6.2-12.0 [facility] Comment on above: Performed By: #### L 500.4050, L100.0100 ####[facility] [address] [place], [address] Platelets (Bld) [#/Vol] 120 10*3/uL Low 150-450 [facility] Comment on above: Performed By: #### L 500.4050, L100.0100 ####[facility] [address] [place], [address] RBC (Bld) [#/Vol] 2.74 10*6/uL Low 4.6-6.2 [facility] Comment on above: Performed By: #### L 500.4050, L100.0100 ####[facility] [address] [place], [address] RDW SD 60.7 fl High 35.1-43.9 [facility] Comment on above: Performed By: #### L 500.4050, L100.0100 ####[facility] [address] [place], [address] WBC (Bld) [#/Vol] 4.9 10*3/uL Normal 4.4-11.0 [facility] Comment on above: Performed By: #### L 500.4050, L100.0100 ####[facility] [address] [place], [address] Comprehensive Metabolic Prof [facility] 01-29-2025 Albumin [Mass/Vol] 2.3 g/dL Low 3.5-5.0 [facility] Comment on above: Performed By: #### L 500.4050, L100.0100 ####[facility] [address] [place], [address] Albumin/Globulin [Mass ratio] 0.8 {ratio} Low 0.9-2.4 [facility] Comment on above: Performed By: #### L 500.4050, L100.0100 ####[facility] [address] [place], [address] ALK PHOS 180 U/L High 40-129 [facility] Comment on above: Performed By: #### L 500.4050, L100.0100 ####[facility] [address] [place], [address] ALT [Catalytic activity/Vol] 30 U/L Normal <=46 [facility] Comment on above: Performed By: #### L 500.4050, L100.0100 ####[facility] [address] [place], [address] AST [Catalytic activity/Vol] 52 U/L High <=37 [facility] Comment on above: Performed By: #### L 500.4050, L100.0100 ####[facility] [address] [place], [address] Bilirubin [Mass/Vol] 1.81 mg/dL High 0.00-1.30 [facility] Comment on above: Performed By: #### L 500.4050, L100.0100 ####[facility] [address] [place], [address] BUN/CRE 11.6 RATIO Normal 10-20 [facility] Comment on above: Performed By: #### L 500.4050, L100.0100 ####[facility] [address] [place], [address] Calcium [Mass/Vol] 8.8 mg/dL Normal 7.6-11.0 [facility] Comment on above: Performed By: #### L 500.4050, L100.0100 ####[facility] [address] [place], [address] Chloride [Moles/Vol] 100 mmol/L Normal 98-108 [facility] Comment on above: Performed By: #### L 500.4050, L100.0100 ####[facility] [address] [place], [address] CO2 [Moles/Vol] 19.5 mmol/L Low 21.0-32.0 [facility] Comment on above: Performed By: #### L 500.4050, L100.0100 ####[facility] [address] [place], [address] Creatinine [Mass/Vol] 1.09 mg/dL Normal 0.70-1.20 [facility] Comment on above: Performed By: #### L 500.4050, L100.0100 ####[facility] [address] [place], [address] ECRCL 94.75 ml/min Normal 50-250 [facility] Comment on above: Performed By: #### L 500.4050, L100.0100 ####[facility] [address] [place], [address] GAP 14 Normal 5-15 [facility] Comment on above: Performed By: #### L 500.4050, L100.0100 ####[facility] [address] [place], [address] GFR/1.73 sq M.predicted among non-blacks MDRD (S/P/Bld) [Vol rate/Area] 79 mL/min/{1.73_m2} Normal >60 [facility] Comment on above: Result Comment: mL/m in/1.73m2 CKD-EPI Creatinine Equation (2020) Performed By: #### L 500.4050, L100.0100 ####[facility] [address] [place], [address] Globulin (S) [Mass/Vol] 3.1 g/dL Normal 2.2-4.2 [facility] Comment on above: Performed By: #### L 500.4050, L100.0100 ####[facility] [address] [place], [address] Glucose [Mass/Vol] 265 mg/dL High 70-99 [facility] Comment on above: Performed By: #### L 500.4050, L100.0100 ####[facility] [address] [place], [address] Potassium [Moles/Vol] 3.5 mmol/L Normal 3.3-5.1 [facility] Comment on above: Performed By: #### L 500.4050, L100.0100 ####[facility] [address] [place], [address] Sodium [Moles/Vol] 133 mmol/L Normal 133-145 [facility] Comment on above: Performed By: #### L 500.4050, L100.0100 ####[facility] [address] [place], [address] T PROT 5.4 g/dL Low 5.9-8.4 [facility] Comment on above: Performed By: #### L 500.4050, L100.0100 ####[facility] [address] [place], [address] Urea nitrogen [Mass/Vol] 13 mg/dL Normal 4-19 [facility] Comment on above: Performed By: #### L 500.4050, L100.0100 ####[facility] [address] [place], [address] No Panel InformationOrdered By: Boone Izquierdo on 01-29-2025 52 U/L High <38 [facility] Serum globulin measurementOr dered By: Boone Izquierdo on 01-29-2025 Globulin (S) [Mass/Vol] 3.1 g/dL 2.2-4.2 [facility] Serum or plasma alanine thomas otransferase (ALT) measurementOrdered By: Boone Izquierdo on 01-29-2025 ALT [Catalytic activity/Vol] 30 U/L <47 [facility] Serum or plasma albumin roosevelt urement (mass/volume)Ordered By: Boone Izquierdo on 01-29-2025 Albumin [Mass/Vol] 2.3 g/dL Low 3.5-5.0 [facility] Serum or plasma albumin/glob ulin mass ratioOrdered By: Boone Izquierdo on 01-29-2025 Albumin/Globulin [Mass ratio] 0.8 {ratio} Low 0.9-2.4 [facility] Serum or plasma alkaline kendrick sphatase measurementOrdered By: Boone Izquierdo on 01-29-2025 ALP [Catalytic activity/Vol] 180 U/L High 40-129 [facility] Total proteinOrdered By: Danita Izquierod on 01-29-2025 Protein [Mass/Vol] 5.4 g/dL Low 5.9-8.4 [facility] Abdomen/Pelvis W IV Cont ONL Yon 01-28-2025 Abdomen/Pelvis W IV Cont ONLY Normal [facility] Absolute lymphocyte countOrd ered By: Danny Hutton on 01-28-2025 Lymphocytes Auto (Unsp spec) [#/Vol] 0.98 10*3/uL 0.83-4.51 [facility] Activated partial thrombopla stin time (aPTT) in platelet poor plasma by coagulation aOrdered By: Danny Hutton on 01-28-2025 aPTT Coag (PPP) [Time] 38.4 s High 24.1-36.2 [facility] Ammoniaon 01-28-2025 Ammonia (P) [Moles/Vol] 108.0 umol/L High 16-60 [facility] Comment on above: Order Comment: ROSIO Gupta PREVIOUS SPECIMEN REJECTED DUE TOHEMOLYSIS. 01/28/25 [address]. Performed By: #### L 503.5510 ####[facility] [address] [place], [place], [id number] Anion gap in Serum or Plasma Ordered By: Danny Hutton on 01-28-2025 Anion gap [Moles/Vol] 14 mmol/L 5-15 [facility] Automated lymphocyte count a s percentage of total leukocytesOrdered By: Danny Hutton on 01-28-2025 Lymphocytes/100 WBC Auto (Unsp spec) 18.8 % Low 19-41 [facility] BUN/creatinine ratioOrdered By: Danny Hutton on 01-28-2025 Urea nitrogen/Creatinine [Mass ratio] 12.8 mg/mg 10- [facility] Basic Metabolic Profile (BMP )on 01-28-2025 CO2 [Moles/Vol] 22.1 mmol/L Normal 21.0-32.0 [facility] Comment on above: Performed By: #### L 500.3400, L500.2500, L501.2450, L503.6005, L300.3900, L501.5200, L300.4310, L501.4021, L100.0100, L503.7505 ####[facility] [address] [place], [place], [id number] GAP 14 Normal - [facility] Comment on above: Performed By: #### L 500.3400, L500.2500, L501.2450, L503.6005, L300.3900, L501.5200, L300.4310, L501.4021, L100.0100, L503.7505 ####[facility] [address] [place], [place], [phone]) Basophil percentageOrdered B y: Danny Hutton on 01-28-2025 Basophils/100 WBC (Bld) 0.8 % 0-1 [facility] Bedside Glucoseon 01-28-2025 FINGERSTICK GLU 102 mg/dL Normal 74-106 [facility] Comment on above: Result Comment: BRISA GEMENT OF PATIENT CARE PER NURSING PROTOCOL Performed By: #### L 501.080 ####[facility] [address] [place], [place], [id number] FINGERSTICK GLU 96 mg/dL Normal 74-106 [facility] Comment on above: Result Comment: BRISA GEMENT OF PATIENT CARE PER NURSING PROTOCOL Performed By: #### L 501.080 ####[facility] [address] [place], [address] Bilirubin Test strip Ql (U)O rdered By: Danny Hutton on 01-28-2025 Bilirubin Ql (U) Negative Negative [facility] Bilirubin directOrdered By: Danny Hutton on 01-28-2025 Bilirubin.direct [Mass/Vol] 1.04 mg/dL High 0.00-0.30 [facility] Bilirubin, totalOrdered By: Danny Hutton on 01-28-2025 Bilirubin [Mass/Vol] 1.91 mg/dL High 0.00-1.30 [facility] Blood cultureOrdered By: Silvano Hutton on 01-28-2025 Bacteria identified Cx Nom (Bld) No growth in 5 days. [facility] Bacteria identified Cx Nom (Bld) No growth in 5 days. [facility] CBC W/Diff, Automatedon 01-03 Absolute Lymph 0.98 X10 3/uL Normal 0.83-4.51 [facility] Comment on above: Performed By: #### L 500.3400, L500.2500, L501.2450, L503.6005, L300.3900, L501.5200, L300.4310, L501.4021, L100.0100, L503.7505 ####[facility] [address] [place], [address] Absolute Neut 3.0 X10 3/uL Normal 2.0-7.7 [facility] Comment on above: Performed By: #### L 500.3400, L500.2500, L501.2450, L503.6005, L300.3900, L501.5200, L300.4310, L501.4021, L100.0100, L503.7505 ####[facility] [address] [place], [address] Basophils/100 WBC (Bld) 0.8 % Normal 0-1 [facility] Comment on above: Performed By: #### L 500.3400, L500.2500, L501.2450, L503.6005, L300.3900, L501.5200, L300.4310, L501.4021, L100.0100, L503.7505 ####[facility] [address] [facility] [place], [address] Eosinophils/100 WBC (Bld) 4.6 % Normal 0-5 [facility] Comment on above: Performed By: #### L 500.3400, L500.2500, L501.2450, L503.6005, L300.3900, L501.5200, L300.4310, L501.4021, L100.0100, L503.7505 ####[facility] [address] [facility] [place], [place], [phone] Erythrocyte distribution width (RBC) [Ratio] 18.4 % High 11.6-14.6 [facility] Comment on above: Performed By: #### L 500.3400, L500.2500, L501.2450, L503.6005, L300.3900, L501.5200, L300.4310, L501.4021, L100.0100, L503.7505 ####[facility] [address] [place], [address] Hematocrit (Bld) [Volume fraction] 25.2 % Low 40-54 [facility] Comment on above: Performed By: #### L 500.3400, L500.2500, L501.2450, L503.6005, L300.3900, L501.5200, L300.4310, L501.4021, L100.0100, L503.7505 ####[facility] [address] [place], [address] Hemoglobin (Bld) [Mass/Vol] 8.3 g/dL Low 13.0-16.5 [facility] Comment on above: Performed By: #### L 500.3400, L500.2500, L501.2450, L503.6005, L300.3900, L501.5200, L300.4310, L501.4021, L100.0100, L503.7505 ####[facility] [address] [facility] [place], [address] IG% 1.300 High 0.0-0.9 [facility] Comment on above: Result Comment: IG% - Immature Granulocytes (promyelocytes, myelocytes andmetamyelocytes) > 1% indicates that a LEFT SHIFT is Present. Performed By: #### L 500.3400, L500.2500, L501.2450, L503.6005, L300.3900, L501.5200, L300.4310, L501.4021, L100.0100, L503.7505 ####[facility] [address] [place], [address] Lymphocytes/100 WBC (Bld) 18.8 % Low 19-41 [facility] Comment on above: Performed By: #### L 500.3400, L500.2500, L501.2450, L503.6005, L300.3900, L501.5200, L300.4310, L501.4021, L100.0100, L503.7505 ####[facility] [address] [place], [address] MCH (RBC) [Entitic mass] 29.4 pg Normal 27.0-32.0 [facility] Comment on above: Performed By: #### L 500.3400, L500.2500, L501.2450, L503.6005, L300.3900, L501.5200, L300.4310, L501.4021, L100.0100, L503.7505 ####[facility] [address] [place], [address] MCHC (RBC) [Mass/Vol] 32.9 g/dL Normal 32-36 [facility] Comment on above: Performed By: #### L 500.3400, L500.2500, L501.2450, L503.6005, L300.3900, L501.5200, L300.4310, L501.4021, L100.0100, L503.7505 ####[facility] [address] [place], [address] MCV (RBC) [Entitic vol] 89.4 fL Normal 80-94 [facility] Comment on above: Performed By: #### L 500.3400, L500.2500, L501.2450, L503.6005, L300.3900, L501.5200, L300.4310, L501.4021, L100.0100, L503.7505 ####[facility] [address] [place], [address] Monocytes/100 WBC (Bld) 16.7 % High 0-10 [facility] Comment on above: Performed By: #### L 500.3400, L500.2500, L501.2450, L503.6005, L300.3900, L501.5200, L300.4310, L501.4021, L100.0100, L503.7505 ####[facility] [address] [place], [address] Neutrophils/100 WBC (Bld) 57.8 % Normal 47-70 [facility] Comment on above: Performed By: #### L 500.3400, L500.2500, L501.2450, L503.6005, L300.3900, L501.5200, L300.4310, L501.4021, L100.0100, L503.7505 ####[facility] [address] [place], [address] Nucleated RBC (Bld) [#/Vol] 0 10*3/uL Normal 0-5 [facility] Comment on above: Performed By: #### L 500.3400, L500.2500, L501.2450, L503.6005, L300.3900, L501.5200, L300.4310, L501.4021, L100.0100, L503.7505 ####[facility] [address] [place], [address] Platelet mean volume (Bld) [Entitic vol] 11.5 fL Normal 6.2-12.0 [facility] Comment on above: Performed By: #### L 500.3400, L500.2500, L501.2450, L503.6005, L300.3900, L501.5200, L300.4310, L501.4021, L100.0100, L503.7505 ####[facility] [address] [place], [address] Platelets (Bld) [#/Vol] 115 10*3/uL Low 150-450 [facility] Comment on above: Performed By: #### L 500.3400, L500.2500, L501.2450, L503.6005, L300.3900, L501.5200, L300.4310, L501.4021, L100.0100, L503.7505 ####[facility] [address] [place], [address] RBC (Bld) [#/Vol] 2.82 10*6/uL Low 4.6-6.2 [facility] Comment on above: Performed By: #### L 500.3400, L500.2500, L501.2450, L503.6005, L300.3900, L501.5200, L300.4310, L501.4021, L100.0100, L503.7505 ####[facility] [address] [place], [address] RDW SD 60.7 fl High 35.1-43.9 [facility] Comment on above: Performed By: #### L 500.3400, L500.2500, L501.2450, L503.6005, L300.3900, L501.5200, L300.4310, L501.4021, L100.0100, L503.7505 ####[facility] [address] [facility] [place], [address] WBC (Bld) [#/Vol] 5.2 10*3/uL Normal 4.4-11.0 [facility] Comment on above: Performed By: #### L 500.3400, L500.2500, L501.2450, L503.6005, L300.3900, L501.5200, L300.4310, L501.4021, L100.0100, L503.7505 ####[facility] [address] [facility] [place], [place], [phone] Carbon dioxide, total [Moles /volume] in Central venous bloodOrdered By: Danny Hutton on 01-28-2025 CO2 [Moles/Vol] 22.1 mmol/L 21.0-32.0 [facility] Chest PA and Lateralon 01-28 Chest PA and Lateral Normal [facility] Chloride assayOrdered By: Darin Hutton on 01-28-2025 Chloride [Moles/Vol] 95 mmol/L Low 98-108 [facility] Emergency Department Summary on 01-28-2025 Emergency Department Summary Normal [facility] Eosinophil percentageOrdered By: Danny Hutton on 01-28-2025 Eosinophils/100 WBC (Bld) 4.6 % 0-5 [facility] Erythrocyte distribution wid th ratioOrdered By: Danny Hutton on 01-28-2025 Erythrocyte distribution width (RBC) [Ratio] 18.4 % High 11.6-14.6 [facility] Erythrocyte distribution wid th standard deviationOrdered By: Danny Barker on 01-28-2025 Erythrocyte distribution width (RBC) [Ratio] 60.7 fl High 35.1-43.9 [facility] Glomerular filtration rate ( GFR) estimation/1.73 sq m using serum, plasma, or whole bOrdered By: Danny Hutton on 01-28-2025 GFR/1.73 sq M.predicted among non-blacks MDRD (S/P/Bld) [Vol rate/Area] 73 mL/min/{1.73_m2} >60 [facility] H AND P Exam - Hospitaliston 01-28-2025 H&P Exam - Hospitalist Normal [facility] Hematocrit Auto (Bld) [Volum e fraction]Ordered By: Danny Hutton on 01-28-2025 Hematocrit (Bld) [Volume fraction] 25.2 % Low 40-54 [facility] Hemoglobin measurementOrdere d By: Danny Hutton on 01-28-2025 Hemoglobin (Bld) [Mass/Vol] 8.3 g/dL Low 13.0-16.5 [facility] Immature granulocytes/100 WB C Auto (Bld)Ordered By: Danny Hutton on 01-28-2025 Immature granulocytes/100 WBC (Bld) 1.300 % High 0.0-0.9 [facility] Influenza virus A and B and SARS-CoV-2 (COVID-19) and Respiratory syncytial virus RNAOrdered By: Danny Hutton on 01-28-2025 SARS-CoV-2 (COVID-19) RNA ANANTH+probe Ql (Unsp spec) [facility] Ketones Test strip Ql (U)Ord ered By: Danny Hutton on 01-28-2025 Ketones Ql (U) Negative Negative [facility] L499.0042on 01-28-2025 Trop T High Sen Normal <=22 [facility] Comment on above: Result Comment: Devonte goodwin via OM: Ordered Performed By: #### L 499.0042 ####[facility] [address] [place], [address] L501.4021on 01-28-2025 Trop T High Sen 13 ng/L Normal <=22 [facility] Comment on above: Performed By: #### L 500.3400, L500.2500, L501.2450, L503.6005, L300.3900, L501.5200, L300.4310, L501.4021, L100.0100, L503.7505 ####[facility] [address] [place], [address] L503.7505on 01-28-2025 Natriuretic peptide B (Bld) [Mass/Vol] 140 pg/mL Normal <=900 [facility] Comment on above: Result Comment: Hear t Failure Unlikely: < 300 pg/mLHeart Failure Likely< 50 Years: > 450 pg/mL50-75 Years: > 900 pg/mL>75 Years: > 1800 pg/mL Performed By: #### L 500.3400, L500.2500, L501.2450, L503.6005, L300.3900, L501.5200, L300.4310, L501.4021, L100.0100, L503.7505 ####[facility] [address] [place], [address] Lactic Acidon 01-28-2025 Lactate [Moles/Vol] 2.8 mmol/L Invalid Interpretation Code 0.0-2.0 [facility] Comment on above: Result Comment: Crit ical Result(s) Called at: 01/28/2025-09:07 by: Jennifer Mrash.??Results read back by same. Performed By: #### L 503.6005 ####[facility] [address] [place], [place], [address] Lactate [Moles/Vol] 3.4 mmol/L Invalid Interpretation Code 0.0-2.0 [facility] Comment on above: Order Comment: Y Result Comment: Crit ical Result(s) Called at: 01/28/2025-04:24 by: Jennifer to Arianna Alva.??Results read back by same. Performed By: #### L 500.3400, L500.2500, L501.2450, L503.6005, L300.3900, L501.5200, L300.4310, L501.4021, L100.0100, L503.7505 ####[facility] [address] [place], [place], [id number] Lipaseon 01-28-2025 Lipase [Catalytic activity/Vol] 33 U/L Normal 13-75 [facility] Comment on above: Result Comment: Siddhartha bhat note:LIPASE revised reference range effective 22.New Lipase methodology. Expected to produce lower valuesthan the previous assay method.NEW Reference Range: 13 - 75 U/L Performed By: #### L 500.3400, L500.2500, L501.2450, L503.6005, L300.3900, L501.5200, L300.4310, L501.4021, L100.0100, L503.7505 ####[facility] [address] [place], [place], [phone] Liver Profileon 01-28-2025 Albumin [Mass/Vol] 2.5 g/dL Low 3.5-5.0 [facility] Comment on above: Performed By: #### L 500.3400, L500.2500, L501.2450, L503.6005, L300.3900, L501.5200, L300.4310, L501.4021, L100.0100, L503.7505 ####[facility] [address] [place], [place], [id number] ALK PHOS 201 U/L High 40-129 [facility] Comment on above: Performed By: #### L 500.3400, L500.2500, L501.2450, L503.6005, L300.3900, L501.5200, L300.4310, L501.4021, L100.0100, L503.7505 ####[facility] [address] [place], [place], [id number] ALT [Catalytic activity/Vol] 31 U/L Normal <=46 [facility] Comment on above: Performed By: #### L 500.3400, L500.2500, L501.2450, L503.6005, L300.3900, L501.5200, L300.4310, L501.4021, L100.0100, L503.7505 ####[facility] [address] [place], [place], [id number] AST [Catalytic activity/Vol] 58 U/L High <=37 [facility] Comment on above: Performed By: #### L 500.3400, L500.2500, L501.2450, L503.6005, L300.3900, L501.5200, L300.4310, L501.4021, L100.0100, L503.7505 ####[facility] [address] [place], [place], [id number] Bilirubin [Mass/Vol] 1.91 mg/dL High 0.00-1.30 [facility] [place] Comment on above: Performed By: #### L 500.3400, L500.2500, L501.2450, L503.6005, L300.3900, L501.5200, L300.4310, L501.4021, L100.0100, L503.7505 ####[facility] [address] [place], [place], [phone](851) Bilirubin.direct [Mass/Vol] 1.04 mg/dL High 0.00-0.30 [facility] Comment on above: Performed By: #### L 500.3400, L500.2500, L501.2450, L503.6005, L300.3900, L501.5200, L300.4310, L501.4021, L100.0100, L503.7505 ####[facility] [address] [place], [address] Globulin (S) [Mass/Vol] 3.3 g/dL Normal 2.2-4.2 [facility] Comment on above: Performed By: #### L 500.3400, L500.2500, L501.2450, L503.6005, L300.3900, L501.5200, L300.4310, L501.4021, L100.0100, L503.7505 ####[facility] [address] [place], [place], [phone](757) T PROT 5.9 g/dL Normal 5.9-8.4 [facility] Comment on above: Performed By: #### L 500.3400, L500.2500, L501.2450, L503.6005, L300.3900, L501.5200, L300.4310, L501.4021, L100.0100, L503.7505 ####[facility] [address] [place], [place], [phone] M100.678on 01-28-2025 M100.678 SARS-CoV-2 (COVID 19 ) Negative INFLUENZA A Negative INFLUENZA B Negative RSV PCR Negative Normal [facility] Comment on above: Performed By: #### M 100.678 ####[facility] [address] [place], [address] MCV (mean corpuscular volume ) determinationOrdered By: Danny Hutton on 01-28-2025 MCV (RBC) [Entitic vol] 89.4 fL 80-94 [facility] Magnesiumon 01-28-2025 Magnesium [Mass/Vol] 1.7 mg/dL Normal 1.5-2.2 [facility] Comment on above: Performed By: #### L 500.3400, L500.2500, L501.2450, L503.6005, L300.3900, L501.5200, L300.4310, L501.4021, L100.0100, L503.7505 ####[facility] [address] [place], [address] Magnesium measurement (mass/ volume)Ordered By: Danny Hutton on 01-28-2025 Magnesium (Unsp spec) [Mass/Vol] 1.7 mg/dL 1.5-2.2 [facility] Mean corpuscular hemoglobin (MCH) determinationOrdered By: Danny Hutton on 01-28-2025 MCH (RBC) [Entitic mass] 29.4 pg 27.0-32.0 [facility] Monocyte percentageOrdered B y: Danny Hutton on 01-28-2025 Monocytes/100 WBC (Bld) 16.7 % High 0-10 [facility] Mucus LM Ql (Urine sed)Order ed By: Danny Hutton on 01-28-2025 Mucus Ql (Urine sed) 0 SEEN /hpf [facility] Natriuretic peptide.B prohor prachi N-Terminal [Mass/volume] in Serum or PlasmaOrdered By: Danny Hutton on 01-28-2025 Natriuretic peptide.B prohormone N-Terminal [Mass/Vol] 140 pg/mL <900 [facility] Neutrophil percentageOrdered By: Dannyjersey Hutton on 01-28-2025 Neutrophils/100 WBC (Bld) 57.8 % 47-70 [facility] Nitrite Test strip Ql (U)Ord ered By: Danny Hutton on 01-28-2025 Nitrite Ql (U) Negative Negative [facility] No Panel InformationOrdered By: Danny Hutton on 01-28-2025 58 U/L High <38 [facility] Partial Thromboplast Timeon 01-28-2025 aPTT Coag (Bld) [Time] 38.4 s High 24.1-36.2 [facility] Comment on above: Performed By: #### L 500.3400, L500.2500, L501.2450, L503.6005, L300.3900, L501.5200, L300.4310, L501.4021, L100.0100, L503.7505 ####[facility] [address] [place], [place], [id number] Platelet countOrdered By: Darin Hutton on 01-28-2025 Platelets (Bld) [#/Vol] 115 10*3/uL Low 150-450 [facility] Potassium measurement (mass/ volume)Ordered By: Danny Hutton on 01-28-2025 Potassium (Unsp spec) [Mass/Vol] 3.4 mmol/L 3.3-5.1 [facility] Protein Test strip Ql (U)Ord ered By: Danny Jack on 01-28-2025 Protein Ql (U) 100 mg/dl High Negative [facility] Prothrombin Time w/INRon INR Coag (PPP) [Relative time] 1.7 {INR} Normal [facility] Comment on above: Performed By: #### L 500.3400, L500.2500, L501.2450, L503.6005, L300.3900, L501.5200, L300.4310, L501.4021, L100.0100, L503.7505 ####[facility] [address] [place], [address] PT Coag (PPP) [Time] 20.0 s High 11.7-14.9 [facility] [place] Comment on above: Performed By: #### L 500.3400, L500.2500, L501.2450, L503.6005, L300.3900, L501.5200, L300.4310, L501.4021, L100.0100, L503.7505 ####[facility] [address] [place], [address] Prothrombin timeOrdered By: Danny Hutton on 01-28-2025 PT Coag (PPP) [Time] 20.0 s High 11.7-14.9 [facility] RBC Auto (Bld) [#/Vol]Ordere d By: Danny Hutton on 01-28-2025 RBC (Bld) [#/Vol] 2.82 10*6/uL Low 4.6-6.2 [facility] Serum creatinine measurement (mass/volume)Ordered By: Danny Hutton on 01-28-2025 Creatinine [Mass/Vol] 1.16 mg/dL 0.70-1.20 [facility] Serum globulin measurementOr dered By: Danny Hutton on 01-28-2025 Globulin (S) [Mass/Vol] 3.3 g/dL 2.2-4.2 [facility] Serum glucose measurement (m ass/volume)Ordered By: Danny Hutton on 01-28-2025 Glucose [Mass/Vol] 93 mg/dL 70-99 [facility] Serum or plasma alanine thomas otransferase (ALT) measurementOrdered By: Danny Hutton on 01-28-2025 ALT [Catalytic activity/Vol] 31 U/L <47 [facility] Serum or plasma albumin roosevelt urement (mass/volume)Ordered By: Danny Barker on 01-28-2025 Albumin [Mass/Vol] 2.5 g/dL Low 3.5-5.0 [facility] Serum or plasma alkaline kendrick sphatase measurementOrdered By: Danny Hutton on 01-28-2025 ALP [Catalytic activity/Vol] 201 U/L High 40-129 [facility] Serum or plasma calcium roosevelt urement (mass/volume)Ordered By: Danny Barker on 01-28-2025 Calcium [Mass/Vol] 8.9 mg/dL 7.6-11.0 [facility] Serum or plasma urea nitroge n measurement (mass/volume)Ordered By: Danny Hutton on 01-28-2025 Urea nitrogen [Mass/Vol] 15 mg/dL 4-19 [facility] Sodium levelOrdered By: Srinath Hutton on 01-28-2025 Sodium [Moles/Vol] 131 mmol/L Low 133-145 [facility] Squamous epithelial cells de tection in urine sediment by light microscopyOrdered By: Danny Hutton on 01-28-2025 Epithelial cells.squamous LM Ql (Urine sed) 0 SEEN /hpf 0-5 [facility] Total proteinOrdered By: Silvano Hutton on 01-28-2025 Protein [Mass/Vol] 5.9 g/dL 5.9-8.4 [facility] Troponin T.cardiac [Mass/vol ume] in Serum or Plasma by High sensitivity methodOrdered By: Danny Hutton on 01-28-2025 Troponin T.cardiac High sensitivity method [Mass/Vol] 13 ng/L <22 [facility] Urinalysis, Completeon 01-28 BACTERIA 1+ /hpf Normal None Seen [facility] Comment on above: Order Comment: COLOR OF URINE MAY AFFECT DIPSTICK RESULTS.CUSTOMS COMPLIANCE DIRECTOR TO SPECIFY Performed By: #### L 400.0001 ####[facility] [address] [facility] [address] RBC > 100 SEEN Normal 0-5 [facility] Comment on above: Order Comment: COLOR OF URINE MAY AFFECT DIPSTICK RESULTS.CUSTOMS COMPLIANCE DIRECTOR TO SPECIFY Performed By: #### L 400.0001 ####[facility] [address] [facility] [phone] WBC 10-25 SEEN Normal 0-[address] [place] [address] Comment on above: Order Comment: COLOR OF URINE MAY AFFECT DIPSTICK RESULTS.CUSTOMS COMPLIANCE DIRECTOR TO SPECIFY Performed By: #### L 400.0001 ####[facility] [address] [place], [address] EPI,SQUAMOUS 0 SEEN Normal 0-5 [facility] Comment on above: Order Comment: COLOR OF URINE MAY AFFECT DIPSTICK RESULTS.CUSTOMS COMPLIANCE DIRECTOR TO SPECIFY Performed By: #### L 400.0001 ####[facility] [address] [place], [place], [id number] Mucus Ql (Urine sed) 0 SEEN Normal [facility] Comment on above: Order Comment: COLOR OF URINE MAY AFFECT DIPSTICK RESULTS.CUSTOMS COMPLIANCE DIRECTOR TO SPECIFY Performed By: #### L 400.0001 ####[facility] [address] [place], [place], [id number] Urine clarityOrdered By: Silvano Hutton on 01-28-2025 Clarity (U) Cloudy Clear [facility] Urine color determinationOrd ered By: Danny Hutton on 01-28-2025 Color (U) Lexis Yellow [facility] Urine cultureOrdered By: Silvano Hutton on 01-28-2025 Bacteria identified Cx Nom (U) Vancomycin Resist. E. 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 [facility] Urine glucose detectionOrder ed By: Danny Hutton on 01-28-2025 Glucose Ql (U) Normal mg/dl Normal [facility] Urine leukocyte esterase det ection by dipstickOrdered By: Danny Hutton on 01-28-2025 Leukocyte esterase Test strip Ql (U) 500 /ul High Negative [facility] Urine pHOrdered By: Danny Santiago on 01-28-2025 pH (U) 8.0 [pH] 5.0 - 8.0 [facility] Urine sediment bacteria coun t by microscopy (number/high power field)Ordered By: Danny Hutton on 01-28-2025 Bacteria LM.HPF (Urine sed) [#/Area] 1 /[HPF] None Seen [facility] Urine specific gravity measu rementOrdered By: Danny Hutton on 01-28-2025 Specific gravity (U) [Rel density] 1.015 1.002-1.030 [facility] Urine urobilinogen measureme ntOrdered By: Danny Hutton on 01-28-2025 Urobilinogen Ql (U) Normal mg/dl Normal [facility] Venous blood ammonia measure mentOrdered By: [facility] on 01-28-2025 Ammonia (P) [Moles/Vol] 108.0 umol/L High 16-60 [facility] White blood cell (WBC) count Ordered By: [facility] on 01-28-2025 WBC (Bld) [#/Vol] 5.2 10*3/uL 4.4-11.0 [facility] White blood cell countOrdere d By: [facility] on 01-28-2025 White blood cell count 10-25 SEEN /hpf 0-5 [facility] Body Fluid Cell Count+Diffon 01-25-2025 MESOTHELIAL 7 Normal [facility] Comment on above: Order Comment: The r eference range and other method performancespecifications have not been established for this bodyfluid. The test must be integrated into the clinicalcontext for interpretation. Result Comment: AMENDED REPORT 01/25/25 1125 OTHER CELL/BF previously reported as: 7 % Performed By: #### L 200.0200, M100.2900, M100.4001, M100.2000, L350.1000 ####[facility] [address] [place], [address] Culture, Anaerobic Any Sourc iliana 01-24-2025 CUAN No growth in 5 days. Normal [facility] Comment on above: Performed By: #### L 200.0200, M100.2900, M100.4001, M100.2000, L350.1000 ####[facility] [address] [place], [address] Anion gap in Serum or Plasma Ordered By: Anurag Irene on 01-21-2025 Anion gap [Moles/Vol] 7 mmol/L 5-15 [facility] BUN/creatinine ratioOrdered By: Anurag Irene on 01-21-2025 Urea nitrogen/Creatinine [Mass ratio] 15.6 mg/mg 10-20 [facility] Bedside Glucoseon 01-21-2025 FINGERSTICK GLU 151 mg/dL High 74-106 [facility] Comment on above: Result Comment: BRISA GEMENT OF PATIENT CARE PER NURSING PROTOCOL Performed By: #### L 501.080 ####[facility] [address] [place], [address] FINGERSTICK GLU 199 mg/dL High 74-106 [facility] Comment on above: Result Comment: BRISA GEMENT OF PATIENT CARE PER NURSING PROTOCOL Performed By: #### L 501.080 ####[facility] [address] [place], [place], [phone] Bilirubin, totalOrdered By: Anurag Irene on 01-21-2025 Bilirubin [Mass/Vol] 1.52 mg/dL High 0.00-1.30 [facility] Carbon dioxide, total [Moles /volume] in Central venous bloodOrdered By: Anurag Irene on 01-21-2025 CO2 [Moles/Vol] 29.7 mmol/L 21.0-32.0 [facility] Chloride assayOrdered By: Francois Irene on 01-21-2025 Chloride [Moles/Vol] 96 mmol/L Low 98-108 [facility] Comprehensive Metabolic Prof ilon 01-21-2025 Albumin [Mass/Vol] 2.1 g/dL Low 3.5-5.0 [facility] Comment on above: Performed By: #### L 500.4050 ####[facility] [address] [place], [address] Albumin/Globulin [Mass ratio] 0.8 {ratio} Low 0.9-2.4 [facility] Comment on above: Performed By: #### L 500.4050 ####[facility] [address] [place], [address] ALK PHOS 204 U/L High 40-129 [facility] Comment on above: Performed By: #### L 500.4050 ####[facility] [address] [place], [address] ALT [Catalytic activity/Vol] 28 U/L Normal <=46 [facility] Comment on above: Performed By: #### L 500.4050 ####[facility] [address] [place], [address] AST [Catalytic activity/Vol] 48 U/L High <=37 [facility] Comment on above: Performed By: #### L 500.4050 ####[facility] [address] [place], [address] Bilirubin [Mass/Vol] 1.52 mg/dL High 0.00-1.30 [facility] Comment on above: Performed By: #### L 500.4050 ####[facility] [address] [place], [address] BUN/CRE 15.6 RATIO Normal 10-20 [facility] Comment on above: Performed By: #### L 500.4050 ####[facility] [address] [place], [address] Calcium [Mass/Vol] 8.1 mg/dL Normal 7.6-11.0 [facility] Comment on above: Performed By: #### L 500.4050 ####[facility] [address] [place], [address] Chloride [Moles/Vol] 96 mmol/L Low 98-108 [facility] Comment on above: Performed By: #### L 500.4050 ####[facility] [address] [place], [address] CO2 [Moles/Vol] 29.7 mmol/L Normal 21.0-32.0 [facility] Comment on above: Performed By: #### L 500.4050 ####[facility] [address] [place], [address] Creatinine [Mass/Vol] 0.86 mg/dL Normal 0.70-1.20 [facility] Comment on above: Performed By: #### L 500.4050 ####[facility] [address] [place], [address] ECRCL 114.50 ml/min Normal 50-250 [facility] Comment on above: Performed By: #### L 500.4050 ####[facility] [address] [place], [address] GAP 7 Normal 5-15 [facility] Comment on above: Performed By: #### L 500.4050 ####[facility] [address] [place], [address] GFR/1.73 sq M.predicted among non-blacks MDRD (S/P/Bld) [Vol rate/Area] 100 mL/min/{1.73_m2} Normal >60 [facility] Comment on above: Result Comment: mL/m in/1.73m2 CKD-EPI Creatinine Equation (2020) Performed By: #### L 500.4050 ####[facility] [address] [place], [address] Globulin (S) [Mass/Vol] 2.6 g/dL Normal 2.2-4.2 [facility] Comment on above: Performed By: #### L 500.4050 ####[facility] [address] [place], [address] Glucose [Mass/Vol] 199 mg/dL High 70-99 [facility] Comment on above: Performed By: #### L 500.4050 ####[facility] [address] [place], [address] Potassium [Moles/Vol] 3.1 mmol/L Low 3.3-5.1 [facility] Comment on above: Performed By: #### L 500.4050 ####[facility] [address] [place], [place], [phone] Sodium [Moles/Vol] 133 mmol/L Normal 133-145 [facility] Comment on above: Performed By: #### L 500.4050 ####[facility] [address] [place], [place], [id number] T PROT 4.7 g/dL Low 5.9-8.4 [facility] Comment on above: Performed By: #### L 500.4050 ####[facility] [address] [place], [place], [address] Urea nitrogen [Mass/Vol] 13 mg/dL Normal 4-19 [facility] Comment on above: Performed By: #### L 500.4050 ####[facility] [address] [place], [place], [id number] Glomerular filtration rate ( GFR) estimation/1.73 sq m using serum, plasma, or whole bOrdered By: Anurag Irene on 01-21-2025 GFR/1.73 sq M.predicted among non-blacks MDRD (S/P/Bld) [Vol rate/Area] 100 mL/min/{1.73_m2} >60 [facility] deOrdered By: Anurag Irene on 01-21-2025 Glucose [Mass/Vol] 151 mg/dL High 74-106 [facility] No Panel InformationOrdered By: Anurag Irene on 01-21-2025 48 U/L High <38 [facility] Potassium measurement (mass/ volume)Ordered By: Anurag Irene on 01-21-2025 Potassium (Unsp spec) [Mass/Vol] 3.1 mmol/L Low 3.3-5.1 [facility] Serum creatinine measurement (mass/volume)Ordered By: Anurag Irene on 01-21-2025 Creatinine [Mass/Vol] 0.86 mg/dL 0.70-1.20 [facility] Serum globulin measurementOr dered By: Anurag Irene on 01-21-2025 Globulin (S) [Mass/Vol] 2.6 g/dL 2.2-4.2 [facility] Serum glucose measurement (m ass/volume)Ordered By: Anurag Irene on 01-21-2025 Glucose [Mass/Vol] 199 mg/dL High 70-99 [facility] Serum or plasma alanine thomas otransferase (ALT) measurementOrdered By: Anurag Irene on 01-21-2025 ALT [Catalytic activity/Vol] 28 U/L <47 [facility] Serum or plasma albumin roosevelt urement (mass/volume)Ordered By: Anurag Irene on 01-21-2025 Albumin [Mass/Vol] 2.1 g/dL Low 3.5-5.0 [facility] Serum or plasma albumin/glob ulin mass ratioOrdered By: Anurag Irene on 01-21-2025 Albumin/Globulin [Mass ratio] 0.8 {ratio} Low 0.9-2.4 [facility] Serum or plasma alkaline kendrick sphatase measurementOrdered By: Anurag Irene on 01-21-2025 ALP [Catalytic activity/Vol] 204 U/L High 40-129 [facility] Serum or plasma calcium roosevelt urement (mass/volume)Ordered By: Anurag Irene on 01-21-2025 Calcium [Mass/Vol] 8.1 mg/dL 7.6-11.0 [facility] Serum or plasma urea nitroge n measurement (mass/volume)Ordered By: Anurag Irene on 01-21-2025 Urea nitrogen [Mass/Vol] 13 mg/dL 4-19 [facility] Sodium levelOrdered By: Marni Irene on 01-21-2025 Sodium [Moles/Vol] 133 mmol/L 133-145 [facility] Total proteinOrdered By: [place] Irene on 01-21-2025 Protein [Mass/Vol] 4.7 g/dL Low 5.9-8.4 [facility] Absolute lymphocyte countOrd ered By: Anurag Irene on 01-20-2025 Lymphocytes Auto (Unsp spec) [#/Vol] 1.10 10*3/uL 0.83-4.51 [facility] Automated lymphocyte count a s percentage of total leukocytesOrdered By: Anurag Irene on 01-20-2025 Lymphocytes/100 WBC Auto (Unsp spec) 16.3 % Low 19-41 [facility] Basophil percentageOrdered B y: Anurag Irene on 01-20-2025 Basophils/100 WBC (Bld) 0.6 % 0-1 [facility] Bedside Glucoseon 01-20-2025 FINGERSTICK GLU 206 mg/dL High 74-106 [facility] Comment on above: Result Comment: BRISA GEMENT OF PATIENT CARE PER NURSING PROTOCOL Performed By: #### L 501.080 ####[facility] [address] [place], [address] FINGERSTICK GLU 188 mg/dL High [facility] Comment on above: Result Comment: BRISA GEMENT OF PATIENT CARE PER NURSING PROTOCOL Performed By: #### L 501.080 ####[facility] [address] [place], [address] FINGERSTICK GLU 167 mg/dL High [address] [place] [address] Comment on above: Result Comment: BRISA GEMENT OF PATIENT CARE PER NURSING PROTOCOL Performed By: #### L 501.080 ####[facility] [address] [place], [address] FINGERSTICK GLU 164 mg/dL High [address] [place] [address] Comment on above: Result Comment: BRISA GEMENT OF PATIENT CARE PER NURSING PROTOCOL Performed By: #### L 501.080 ####[facility] [address] [place], [address] Blood manual differential co mment interpretation (narrative result)Ordered By: Anurag Irene on 01-20-2025 Manual differential comment Marco Antonio (Bld) [Interp] SCANNED [facility] CBC W/Diff, Automatedon 01-02 PLT EST MOD DEC Normal ADEQ [facility] Comment on above: Performed By: #### L 100.0100 ####[facility] [address] [place], [address] SMEAR COMMENT SCANNED Normal [facility] Comment on above: Performed By: #### L 100.0100 ####[facility] [address] [place], [address] Comprehensive Metabolic Prof ilon 01-20-2025 Albumin [Mass/Vol] 2.0 g/dL Low 3.5-5.0 [facility] Comment on above: Performed By: #### L 500.4050 ####[facility] [address] [place], [address] Albumin/Globulin [Mass ratio] 0.7 {ratio} Low 0.9-2.4 [facility] Comment on above: Performed By: #### L 500.4050 ####[facility] [address] [place], [address] ALK PHOS 211 U/L High 40-129 [facility] Comment on above: Performed By: #### L 500.4050 ####[facility] [address] [place], [address] ALT [Catalytic activity/Vol] 32 U/L Normal <=46 [facility] Comment on above: Performed By: #### L 500.4050 ####[facility] [address] [place], [address] AST [Catalytic activity/Vol] 45 U/L High <=37 [facility] Comment on above: Performed By: #### L 500.4050 ####[facility] [address] [place], [address] Bilirubin [Mass/Vol] 1.61 mg/dL High 0.00-1.30 [facility] Comment on above: Performed By: #### L 500.4050 ####[facility] [address] [place], [address] BUN/CRE 13.4 RATIO Normal 10-20 [facility] Comment on above: Performed By: #### L 500.4050 ####[facility] [address] [place], [address] Calcium [Mass/Vol] 8.1 mg/dL Normal 7.6-11.0 [facility] Comment on above: Performed By: #### L 500.4050 ####[facility] [address] [place], [address] Chloride [Moles/Vol] 95 mmol/L Low 98-108 [facility] Comment on above: Performed By: #### L 500.4050 ####[facility] [address] [place], [address] CO2 [Moles/Vol] 30.3 mmol/L Normal 21.0-32.0 [facility] Comment on above: Performed By: #### L 500.4050 ####[facility] [address] [place], [address] Creatinine [Mass/Vol] 0.87 mg/dL Normal 0.70-1.20 [facility] Comment on above: Performed By: #### L 500.4050 ####[facility] [address] [place], [address] ECRCL 112.61 ml/min Normal 50-250 [facility] Comment on above: Performed By: #### L 500.4050 ####[facility] [address] [place], [address] GAP 7 Normal 5-15 [facility] Comment on above: Performed By: #### L 500.4050 ####[facility] [address] [place], [address] GFR/1.73 sq M.predicted among non-blacks MDRD (S/P/Bld) [Vol rate/Area] 100 mL/min/{1.73_m2} Normal >60 [facility] Comment on above: Result Comment: mL/m in/1.73m2 CKD-EPI Creatinine Equation (2020) Performed By: #### L 500.4050 ####[facility] [address] [place], [address] Globulin (S) [Mass/Vol] 2.9 g/dL Normal 2.2-4.2 [facility] Comment on above: Performed By: #### L 500.4050 ####[facility] [address] [place], [address] Glucose [Mass/Vol] 195 mg/dL High 70-99 [facility] Comment on above: Performed By: #### L 500.4050 ####[facility] [address] [place], [address] Potassium [Moles/Vol] 3.1 mmol/L Low 3.3-5.1 [facility] Comment on above: Performed By: #### L 500.4050 ####[facility] [address] [place], [address] Sodium [Moles/Vol] 133 mmol/L Normal 133-145 [facility] Comment on above: Performed By: #### L 500.4050 ####[facility] [address] [place], [address] T PROT 4.9 g/dL Low 5.9-8.4 [facility] Comment on above: Performed By: #### L 500.4050 ####[facility] [address] [place], [address] Urea nitrogen [Mass/Vol] 12 mg/dL Normal -19 [facility] Comment on above: Performed By: #### L 500.4050 ####[facility] [address] [place], [address] Eosinophil percentageOrdered By: Anurag Irene on 01-20-2025 Eosinophils/100 WBC (Bld) 6.5 % High 0-5 [facility] Erythrocyte distribution wid th ratioOrdered By: Anurag Irene on 01-20-2025 Erythrocyte distribution width (RBC) [Ratio] 18.3 % High 11.6-14.6 [facility] Erythrocyte distribution wid th standard deviationOrdered By: Anurag Irene on 01-20-2025 Erythrocyte distribution width (RBC) [Ratio] 58.5 fl High 35.1-43.9 [facility] Hematocrit Auto (Bld) [Volum e fraction]Ordered By: Anurag Irene on 01-20-2025 Hematocrit (Bld) [Volume fraction] 22.9 % Low 40-54 [facility] Hemoglobin measurementOrdere d By: Anurag Irene on 01-20-2025 Hemoglobin (Bld) [Mass/Vol] 7.7 g/dL Low 13.0-16.5 [facility] Immature granulocytes/100 WB C Auto (Bld)Ordered By: Anurag Irene on 01-20-2025 Immature granulocytes/100 WBC (Bld) 1.200 % High 0.0-0.9 [facility] MCV (mean corpuscular volume ) determinationOrdered By: Anurag Irene on 01-20-2025 MCV (RBC) [Entitic vol] 88.1 fL 80-94 [facility] Mean corpuscular hemoglobin (MCH) determinationOrdered By: Anurag Irene on 01-20-2025 MCH (RBC) [Entitic mass] 29.6 pg 27.0-32.0 [facility] Monocyte percentageOrdered B y: Anurag Irene on 01-20-2025 Monocytes/100 WBC (Bld) 11.9 % High 0-10 [facility] Neutrophil percentageOrdered By: Anurag Irene on 01-20-2025 Neutrophils/100 WBC (Bld) 63.5 % 47-70 [facility] Platelet countOrdered By: Francois Irene on 01-20-2025 Platelets (Bld) [#/Vol] 93 10*3/uL Low 150-450 [facility] Platelet estimateOrdered By: Anurag Irene on 01-20-2025 Platelets LM Ql (Bld) MOD [facility] RBC Auto (Bld) [#/Vol]Ordere d By: Anurag Irene on 01-20-2025 RBC (Bld) [#/Vol] 2.60 10*6/uL Low 4.6-6.2 [facility] White blood cell (WBC) count Ordered By: Anurag Irene on 01-20-2025 WBC (Bld) [#/Vol] 6.8 10*3/uL 4.4-11.0 [facility] Activated partial thrombopla stin time (aPTT) in platelet poor plasma by coagulation aOrdered By: Rosendo Renee on 01-19-2025 aPTT Coag (PPP) [Time] 46.6 s High 24.1-36.2 [facility] Albumin, Serumon 01-19-2025 Albumin [Mass/Vol] 2.2 g/dL Low 3.5-5.0 [facility] Comment on above: Performed By: #### L 501.2300, L300.4310, L300.3900, L501.5200, L501.1800 ####[facility] [address] [place], [address] Bedside Glucoseon 01-19-2025 FINGERSTICK GLU 225 mg/dL High [address] [facility] Comment on above: Result Comment: BRISA GEMENT OF PATIENT CARE PER NURSING PROTOCOL Performed By: #### L 501.080 ####[facility] [address] [place], [address] FINGERSTICK GLU 268 mg/dL High [address] [place] [address] Comment on above: Result Comment: BRISA GEMENT OF PATIENT CARE PER NURSING PROTOCOL Performed By: #### L 501.080 ####[facility] [address] [place], [address] FINGERSTICK GLU 187 mg/dL High [address] [place] [address] Comment on above: Result Comment: BRISA GEMENT OF PATIENT CARE PER NURSING PROTOCOL Performed By: #### L 501.080 ####[facility] [address] [place], [address] FINGERSTICK GLU 198 mg/dL High 74-106 [facility] Comment on above: Result Comment: BRISA MOROCHO OF PATIENT CARE PER NURSING PROTOCOL Performed By: #### L 501.080 ####[facility] [address] [place], [address] Bilirubin directOrdered By: Anurag Irene on 01-19-2025 Bilirubin.direct [Mass/Vol] 1.00 mg/dL High 0.00-0.30 [facility] Bilirubin, Directon 01-20-20 25 Bilirubin.direct [Mass/Vol] 1.00 mg/dL High 0.00-0.30 [facility] Comment on above: Performed By: #### L 501.4700, L500.4050, L100.0100 ####[facility] [address] [place], [address] Body Fluid Culton 01-19-2025 BFC Culture exhibits no growth. Normal [facility] Comment on above: Performed By: #### L 200.0200, M100.2900, M100.4001, M100.2000, L350.1000 ####[facility] [address] [place], [address] CBC W/Diff, Automatedon 01-02 Absolute Lymph 1.08 X10 3/uL Normal 0.83-4.51 [facility] Comment on above: Performed By: #### L 501.4700, L500.4050, L100.0100 ####[facility] [address] [place], [address] Absolute Neut 5.4 X10 3/uL Normal 2.0-7.7 [facility] Comment on above: Performed By: #### L 501.4700, L500.4050, L100.0100 ####[facility] [address] [place], [address] Basophils/100 WBC (Bld) 0.5 % Normal 0-1 [facility] Comment on above: Performed By: #### L 501.4700, L500.4050, L100.0100 ####[facility] [address] [place], [address] Eosinophils/100 WBC (Bld) 5.8 % High 0-5 [facility] Comment on above: Performed By: #### L 501.4700, L500.4050, L100.0100 ####[facility] [address] [place], [address] Erythrocyte distribution width (RBC) [Ratio] 18.6 % High 11.6-14.6 [facility] Comment on above: Performed By: #### L 501.4700, L500.4050, L100.0100 ####[facility] [address] [place], [address] Hematocrit (Bld) [Volume fraction] 22.3 % Low 40-54 [facility] Comment on above: Performed By: #### L 501.4700, L500.4050, L100.0100 ####[facility] [address] [place], [address] Hemoglobin (Bld) [Mass/Vol] 7.6 g/dL Low 13.0-16.5 [facility] Comment on above: Performed By: #### L 501.4700, L500.4050, L100.0100 ####[facility] [address] [place], [address] IG% 1.400 High 0.0-0.9 [facility] Comment on above: Result Comment: IG% - Immature Granulocytes (promyelocytes, myelocytes andmetamyelocytes) > 1% indicates that a LEFT SHIFT is Present. Performed By: #### L 501.4700, L500.4050, L100.0100 ####[facility] [address] [place], [address] Lymphocytes/100 WBC (Bld) 13.6 % Low 19-41 [facility] Comment on above: Performed By: #### L 501.4700, L500.4050, L100.0100 ####[facility] [address] [place], [address] MCH (RBC) [Entitic mass] 30.3 pg Normal 27.0-32.0 [facility] Comment on above: Performed By: #### L 501.4700, L500.4050, L100.0100 ####[facility] [address] [place], [address] MCHC (RBC) [Mass/Vol] 34.1 g/dL Normal 32-36 [facility] Comment on above: Performed By: #### L 501.4700, L500.4050, L100.0100 ####[facility] [address] [place], [address] MCV (RBC) [Entitic vol] 88.8 fL Normal 80-94 [facility] Comment on above: Performed By: #### L 501.4700, L500.4050, L100.0100 ####[facility] [address] [place], [address] Monocytes/100 WBC (Bld) 11.0 % High 0-10 [facility] Comment on above: Performed By: #### L 501.4700, L500.4050, L100.0100 ####[facility] [address] [place], [address] Neutrophils/100 WBC (Bld) 67.7 % Normal 47-70 [facility] Comment on above: Performed By: #### L 501.4700, L500.4050, L100.0100 ####[facility] [address] [place], [address] Nucleated RBC (Bld) [#/Vol] 0 10*3/uL Normal 0-5 [facility] Comment on above: Performed By: #### L 501.4700, L500.4050, L100.0100 ####[facility] [address] [place], [address] Platelet mean volume (Bld) [Entitic vol] 11.1 fL Normal 6.2-12.0 [facility] Comment on above: Performed By: #### L 501.4700, L500.4050, L100.0100 ####[facility] [address] [place], [address] Platelets (Bld) [#/Vol] 107 10*3/uL Low 150-450 [facility] Comment on above: Performed By: #### L 501.4700, L500.4050, L100.0100 ####[facility] [address] [place], [address] RBC (Bld) [#/Vol] 2.51 10*6/uL Low 4.6-6.2 [facility] Comment on above: Performed By: #### L 501.4700, L500.4050, L100.0100 ####[facility] [address] [place], [address] RDW SD 59.0 fl High 35.1-43.9 [facility] Comment on above: Performed By: #### L 501.4700, L500.4050, L100.0100 ####[facility] [address] [place], [address] WBC (Bld) [#/Vol] 7.9 10*3/uL Normal 4.4-11.0 [facility] Comment on above: Performed By: #### L 501.4700, L500.4050, L100.0100 ####[facility] [address] [place], [address] Comprehensive Metabolic Prof lexis 01-19-2025 Albumin [Mass/Vol] 2.2 g/dL Low 3.5-5.0 [facility] Comment on above: Performed By: #### L 501.4700, L500.4050, L100.0100 ####[facility] [address] [place], [address] Albumin/Globulin [Mass ratio] 0.9 {ratio} Normal 0.9-2.4 [facility] Comment on above: Performed By: #### L 501.4700, L500.4050, L100.0100 ####[facility] [address] [place], [address] ALK PHOS 225 U/L High 40-129 [facility] Comment on above: Performed By: #### L 501.4700, L500.4050, L100.0100 ####[facility] [address] [place], [address] ALT [Catalytic activity/Vol] 34 U/L Normal <=46 [facility] Comment on above: Performed By: #### L 501.4700, L500.4050, L100.0100 ####[facility] [address] [place], [address] AST [Catalytic activity/Vol] 52 U/L High <=37 [facility] Comment on above: Performed By: #### L 501.4700, L500.4050, L100.0100 ####[facility] [address] [place], [address] Bilirubin [Mass/Vol] 1.70 mg/dL High 0.00-1.30 [facility] Comment on above: Performed By: #### L 501.4700, L500.4050, L100.0100 ####[facility] [address] [place], [address] BUN/CRE 10.4 RATIO Normal 10-20 [facility] Comment on above: Performed By: #### L 501.4700, L500.4050, L100.0100 ####[facility] [address] [place], [address] Calcium [Mass/Vol] 7.9 mg/dL Normal 7.6-11.0 [facility] Comment on above: Performed By: #### L 501.4700, L500.4050, L100.0100 ####[facility] [address] [place], [address] Chloride [Moles/Vol] 94 mmol/L Low 98-108 [facility] Comment on above: Performed By: #### L 501.4700, L500.4050, L100.0100 ####[facility] [address] [place], [address] CO2 [Moles/Vol] 30.7 mmol/L Normal 21.0-32.0 [facility] Comment on above: Performed By: #### L 501.4700, L500.4050, L100.0100 ####[facility] [address] [place], [address] Creatinine [Mass/Vol] 1.05 mg/dL Normal 0.70-1.20 [facility] Comment on above: Performed By: #### L 501.4700, L500.4050, L100.0100 ####[facility] [address] [place], [address] ECRCL 93.35 ml/min Normal 50-250 [facility] Comment on above: Performed By: #### L 501.4700, L500.4050, L100.0100 ####[facility] [address] [place], [address] GAP 7 Normal 5-15 [facility] Comment on above: Performed By: #### L 501.4700, L500.4050, L100.0100 ####[facility] [address] [place], [address] GFR/1.73 sq M.predicted among non-blacks MDRD (S/P/Bld) [Vol rate/Area] 82 mL/min/{1.73_m2} Normal >60 [facility] Comment on above: Result Comment: mL/m in/1.73m2 CKD-EPI Creatinine Equation (2020) Performed By: #### L 501.4700, L500.4050, L100.0100 ####[facility] [address] [place], [address] Globulin (S) [Mass/Vol] 2.6 g/dL Normal 2.2-4.2 [facility] Comment on above: Performed By: #### L 501.4700, L500.4050, L100.0100 ####[facility] [address] [place], [address] Glucose [Mass/Vol] 220 mg/dL High 70-99 [facility] Comment on above: Performed By: #### L 501.4700, L500.4050, L100.0100 ####[facility] [address] [place], [address] Potassium [Moles/Vol] 3.0 mmol/L Low 3.3-5.1 [facility] Comment on above: Performed By: #### L 501.4700, L500.4050, L100.0100 ####[facility] [address] [place], [address] Sodium [Moles/Vol] 132 mmol/L Low 133-145 [facility] Comment on above: Performed By: #### L 501.4700, L500.4050, L100.0100 ####[facility] [address] [place], [address] T PROT 4.8 g/dL Low 5.9-8.4 [facility] Comment on above: Performed By: #### L 501.4700, L500.4050, L100.0100 ####[facility] [address] [place], [address] Urea nitrogen [Mass/Vol] 11 mg/dL Normal 4-19 [facility] Comment on above: Performed By: #### L 501.4700, L500.4050, L100.0100 ####[facility] [address] [place], [address] Gram Stainon 01-19-2025 GS Centrifuged Specimen ? Culture performed on centrifuged specimen Gram Stain No organisms seen No cells seen Normal [facility] Comment on above: Performed By: #### L 200.0200, M100.2900, M100.4001, M100.2000, L350.1000 ####[facility] [address] [place], [address] Liver Profileon 01-19-2025 ALB Normal 3.5-5.0 [facility] Comment on above: Result Comment: MOVE D TO DIFFERENT REQ- SEE C50 Performed By: #### L 500.3400 ####[facility] [address] [place], [address] ALK PHOS Normal 40-129 [facility] Comment on above: Result Comment: MOVE D TO DIFFERENT REQ- SEE C50 Performed By: #### L 500.3400 ####[facility] [address] [place], [address] ALT Normal <=46 [facility] Comment on above: Result Comment: MOVE D TO DIFFERENT REQ- SEE C50 Performed By: #### L 500.3400 ####[facility] [address] [place], [address] AST Normal <=37 [facility] Comment on above: Result Comment: MOVE D TO DIFFERENT REQ- SEE C50 Performed By: #### L 500.3400 ####[facility] [address] [place], [address] D BILI Normal 0.00-0.30 [facility] Comment on above: Result Comment: MOVE D TO DIFFERENT REQ- SEE C50 Performed By: #### L 500.3400 ####[facility] [address] [place], [address] T BILI Normal 0.00-1.30 [facility] Comment on above: Result Comment: MOVE D TO DIFFERENT REQ- SEE C50 Performed By: #### L 500.3400 ####[facility] [address] [place], [address] T PROT Normal 5.9-8.4 [facility] Comment on above: Result Comment: MOVE D TO DIFFERENT REQ- SEE C50 Performed By: #### L 500.3400 ####[facility] [address] [place], [address] Magnesiumon 01-19-2025 Magnesium [Mass/Vol] 1.7 mg/dL Normal 1.5-2.2 [facility] Comment on above: Performed By: #### L 501.2300, L300.4310, L300.3900, L501.5200, L501.1800 ####[facility] [address] [place], [address] Magnesium measurement (mass/ volume)Ordered By: Rosendo Renee on 01-19-2025 Magnesium (Unsp spec) [Mass/Vol] 1.7 mg/dL 1.5-2.2 [facility] Partial Thromboplast Timeon 01-19-2025 aPTT Coag (Bld) [Time] 46.6 s High 24.1-36.2 [facility] Comment on above: Performed By: #### L 501.2300, L300.4310, L300.3900, L501.5200, L501.1800 ####[facility] [address] [place], [address] Phosphoruson 01-19-2025 Phosphate [Mass/Vol] 3.5 mg/dL Normal 2.7-4.5 [facility] Comment on above: Performed By: #### L 501.2300, L300.4310, L300.3900, L501.5200, L501.1800 ####[facility] [address] [place], [address] Prothrombin Time w/INRon INR Coag (PPP) [Relative time] 2.0 {INR} Normal [facility] Comment on above: Performed By: #### L 501.2300, L300.4310, L300.3900, L501.5200, L501.1800 ####[facility] [address] [place], [address] PT Coag (PPP) [Time] 22.8 s High 11.7-14.9 [facility] Comment on above: Performed By: #### L 501.2300, L300.4310, L300.3900, L501.5200, L501.1800 ####[facility] [address] [place], [address] Prothrombin timeOrdered By: Rosendo Renee on 01-19-2025 PT Coag (PPP) [Time] 22.8 s High 11.7-14.9 [facility] Abdomen Limitedon 01-18-2025 Abdomen Limited Normal [facility] Anaerobic cultureOrdered By: Anurag Irene on 01-18-2025 Bacteria identified Anaer cx Nom (Unsp spec) No growth in 5 days. [facility] Basic Metabolic Profile (BMP )on 01-18-2025 BUN/CRE 9.8 RATIO Low 10-20 [facility] Comment on above: Performed By: #### L 500.2500 ####[facility] [address] [place], [address] Calcium [Mass/Vol] 7.7 mg/dL Normal 7.6-11.0 [facility] Comment on above: Performed By: #### L 500.2500 ####[facility] [address] [place], [address] Chloride [Moles/Vol] 92 mmol/L Low 98-108 [facility] Comment on above: Performed By: #### L 500.2500 ####[facility] [address] [place], [address] CO2 [Moles/Vol] 31.5 mmol/L Normal 21.0-32.0 [facility] Comment on above: Performed By: #### L 500.2500 ####[facility] [address] [place], [address] Creatinine [Mass/Vol] 0.85 mg/dL Normal 0.70-1.20 [facility] Comment on above: Performed By: #### L 500.2500 ####[facility] [address] [place], [address] ECRCL 116.49 ml/min Normal 50-250 [facility] Comment on above: Performed By: #### L 500.2500 ####[facility] [address] [place], [address] GAP 8 Normal 5-15 [facility] Comment on above: Performed By: #### L 500.2500 ####[facility] [address] [place], [address] GFR/1.73 sq M.predicted among non-blacks MDRD (S/P/Bld) [Vol rate/Area] 101 mL/min/{1.73_m2} Normal >60 [facility] Comment on above: Result Comment: mL/m in/1.73m2 CKD-EPI Creatinine Equation (2020) Performed By: #### L 500.2500 ####[facility] [address] [place], [address] Glucose [Mass/Vol] 228 mg/dL High 70-99 [facility] Comment on above: Performed By: #### L 500.2500 ####[facility] [address] [place], [address] Potassium [Moles/Vol] 2.8 mmol/L Low 3.3-5.1 [facility] Comment on above: Performed By: #### L 500.2500 ####[facility] [address] [place], [address] Sodium [Moles/Vol] 132 mmol/L Low 133-145 [facility] Comment on above: Performed By: #### L 500.2500 ####[facility] [address] [place], [address] Urea nitrogen [Mass/Vol] 8 mg/dL Normal 4-19 [facility] Comment on above: Performed By: #### L 500.2500 ####[facility] [address] [place], [address] Bedside Glucoseon 01-18-2025 FINGERSTICK GLU 250 mg/dL High 74-106 [facility] Comment on above: Result Comment: BRISA GEMENT OF PATIENT CARE PER NURSING PROTOCOL Performed By: #### L 501.080 ####[facility] [address] [place], [address] FINGERSTICK GLU 158 mg/dL High 74-106 [facility] Comment on above: Result Comment: BRISA GEMENT OF PATIENT CARE PER NURSING PROTOCOL Performed By: #### L 501.080 ####[facility] [address] [place], [address] FINGERSTICK GLU 142 mg/dL High 74-106 [facility] Comment on above: Result Comment: BRISA GEMENT OF PATIENT CARE PER NURSING PROTOCOL Performed By: #### L 501.080 ####[facility] [address] [place], [address] FINGERSTICK GLU 171 mg/dL High 74-106 [facility] Comment on above: Result Comment: BRISA MOROCHO OF PATIENT CARE PER NURSING PROTOCOL Performed By: #### L 501.080 ####[facility] [address] [place], [address] Body fluid appearance (nomin al result)Ordered By: Anurag Irene on 01-18-2025 Appearance (Body fld) CLEAR [facility] Body fluid color determinati onOrdered By: Anurag Irene on 01-18-2025 Color (Body fld) LT YEL [facility] Body fluid cultureOrdered By : Anurag Irene on 01-18-2025 Microbial culture, body fluid Culture exhibits no growth. [facility] Body fluid leukocytes count (number/volume)Ordered By: Anurag Irene on 01-18-2025 WBC (Body fld) [#/Vol] 0.143 10*3/uL [facility] Body fluid lymphocytes/100 l eukocytesOrdered By: Anurag Irene on 01-18-2025 Lymphocytes/100 WBC (Body fld) 24 % [facility] Body fluid macrophage countO rdered By: Anurag Irene on 01-18-2025 Macrophages (Body fld) [#/Vol] 46 % [facility] Body fluid mesothelial cell percentageOrdered By: Anurag Irene on 01-18-2025 Mesothelial cells/100 WBC (Body fld) 7 % [facility] Body fluid mononuclear cell percentageOrdered By: Anurag Irene on 01-18-2025 Mononuclear cells/100 WBC (Body fld) 75.6 % [facility] Body fluid other cell count as percentage of leukocytesOrdered By: Anurag Irene on 01-18-2025 Other cells/100 WBC (Body fld) 7 % [facility] Other cells/100 WBC (Body fld) ALTERATION SPECIALIST [facility] Body fluid protein measureme nt (mass/volume)Ordered By: Anurag Irene on 01-18-2025 Protein (Body fld) [Mass/Vol] 0.3 g/dL Not Establ. [facility] Body fluid segmented neutrop hils count (number/volume)Ordered By: Anurag Irene on 01-18-2025 Segmented neutrophils (Body fld) [#/Vol] 20 % [facility] Body fluid total cell countO rdered By: Anurag Irene on 01-18-2025 Cells Counted Total (Body fld) [#] 0.172 10^3/ul [facility] CBC W/Diff, Automatedon 01-02 Absolute Lymph 1.13 X10 3/uL Normal 0.83-4.51 [facility] Comment on above: Performed By: #### L 100.0100 ####[facility] [address] [place], [address] Absolute Neut 5.5 X10 3/uL Normal 2.0-7.7 [facility] Comment on above: Performed By: #### L 100.0100 ####[facility] [address] [place], [address] Basophils/100 WBC (Bld) 0.6 % Normal 0-1 [facility] Comment on above: Performed By: #### L 100.0100 ####[facility] [address] [place], [address] Eosinophils/100 WBC (Bld) 6.1 % High 0-5 [facility] Comment on above: Performed By: #### L 100.0100 ####[facility] [address] [place], [address] Erythrocyte distribution width (RBC) [Ratio] 18.7 % High 11.6-14.6 [facility] Comment on above: Performed By: #### L 100.0100 ####[facility] [address] [place], [address] Hematocrit (Bld) [Volume fraction] 22.6 % Low 40-54 [facility] Comment on above: Performed By: #### L 100.0100 ####[facility] [address] [place], [address] Hemoglobin (Bld) [Mass/Vol] 7.7 g/dL Low 13.0-16.5 [facility] Comment on above: Performed By: #### L 100.0100 ####[facility] [address] [place], [address] IG% 1.200 High 0.0-0.9 [facility] Comment on above: Result Comment: IG% - Immature Granulocytes (promyelocytes, myelocytes andmetamyelocytes) > 1% indicates that a LEFT SHIFT is Present. Performed By: #### L 100.0100 ####[facility] [address] [place], [address] Lymphocytes/100 WBC (Bld) 14.0 % Low 19-41 [facility] Comment on above: Performed By: #### L 100.0100 ####[facility] [address] [place], [address] MCH (RBC) [Entitic mass] 30.1 pg Normal 27.0-32.0 [facility] Comment on above: Performed By: #### L 100.0100 ####[facility] [address] [place], [address] MCHC (RBC) [Mass/Vol] 34.1 g/dL Normal 32-36 [facility] Comment on above: Performed By: #### L 100.0100 ####[facility] [address] [place], [address] MCV (RBC) [Entitic vol] 88.3 fL Normal 80-94 [facility] Comment on above: Performed By: #### L 100.0100 ####[facility] [address] [place], [address] Monocytes/100 WBC (Bld) 10.0 % Normal 0-10 [facility] Comment on above: Performed By: #### L 100.0100 ####[facility] [address] [place], [address] Neutrophils/100 WBC (Bld) 68.1 % Normal 47-70 [facility] Comment on above: Performed By: #### L 100.0100 ####[facility] [address] [place], [address] Nucleated RBC (Bld) [#/Vol] 0 10*3/uL Normal 0-5 [facility] Comment on above: Performed By: #### L 100.0100 ####[facility] [address] [place], [address] Platelet mean volume (Bld) [Entitic vol] 10.5 fL Normal 6.2-12.0 [facility] Comment on above: Performed By: #### L 100.0100 ####[facility] [address] [place], [address] Platelets (Bld) [#/Vol] 107 10*3/uL Low 150-450 [facility] Comment on above: Performed By: #### L 100.0100 ####[facility] [address] [place], [address] RBC (Bld) [#/Vol] 2.56 10*6/uL Low 4.6-6.2 [facility] Comment on above: Performed By: #### L 100.0100 ####[facility] [address] [place], [address] RDW SD 58.9 fl High 35.1-43.9 [facility] Comment on above: Performed By: #### L 100.0100 ####[facility] [address] [place], [address] WBC (Bld) [#/Vol] 8.1 10*3/uL Normal 4.4-11.0 [facility] Comment on above: Performed By: #### L 100.0100 ####[facility] [address] [place], [address] Cytology report of Body flui d Cyto stainOrdered By: Anurag Irene on 01-18-2025 Cytology report Cyto stain Doc (Body fld) SEE PATHOLOGY REPORT [facility] Cytology, Body Fluid / CSFon 01-18-2025 CYTOLOGY,BF/CSF SEE PATHOLOGY REPORT Normal [facility] Comment on above: Result Comment: Spec imen submitted to Anatomical Pathology Department fortesting. Performed By: #### L 200.0200, M100.2900, M100.4001, M100.2000, L350.1000 ####[facility] [address] [place], [address] Glucose, Body Fluidon 2024 GLUC, BODY FLD 154 mg/dL Normal Not Establ. [facility] Comment on above: Performed By: #### L 503.0100, L503.0300 ####[facility] [address] [place], [address] Gram stainOrdered By: Anuradha Irene on 01-18-2025 Microscopic observation Gram stain Nom (Unsp spec) [facility] Magnesiumon 01-18-2025 Magnesium [Mass/Vol] 1.6 mg/dL Normal 1.5-2.2 [facility] Comment on above: Performed By: #### L 501.2300, L501.5200 ####[facility] [address] [place], [address] Monocyte detectionOrdered By : Anurag Irene on 01-18-2025 Monocytes/100 WBC (Bld) 3 % [facility] No Panel InformationOrdered By: Anurag Irene on 01-18-2025 218 /mm3 [facility] SEE COMMENT [facility] Paracentesis with USon 01-18 Paracentesis with US Normal [facility] Pathologist interpretation o f Body fluid testsOrdered By: Anurag Irene on 01-18-2025 Pathologist interpretation (Body fld) [Interp] Reviewed [facility] Phosphoruson 01-18-2025 Phosphate [Mass/Vol] 3.7 mg/dL Normal 2.7-4.5 [facility] Comment on above: Performed By: #### L 501.2300, L501.5200 ####[facility] [address] [place], [address] Protein, Body Fluidon 2024 Protein [Mass/Vol] 0.3 g/dL Normal Not Establ. [facility] Comment on above: Performed By: #### L 503.0100, L503.0300 ####[facility] [address] [place], [address] Prothrombin Time w/INRon INR Coag (PPP) [Relative time] 2.0 {INR} Normal [facility] Comment on above: Performed By: #### L 300.3900 ####[facility] [address] [place], [address] PT Coag (PPP) [Time] 22.9 s High 11.7-14.9 [facility] Comment on above: Performed By: #### L 300.3900 ####[facility] [address] [place], [address] Special Stain Group IIon Special Stain Group II Normal [facility] Comment on above: Performed By: #### P SSII ####[facility] [address] [place], [address] Specimen source identificati on of body fluidOrdered By: Anurag Irene on 01-18-2025 Specimen source Nom (Body fld) PERITONEAL FLUID [facility] Stool Occult Blood iFOBon STOB Negative Normal [facility] Comment on above: Performed By: #### M 100.7900 ####[facility] [address] [place], [address] Stool gastrointestinal hemog lobin detection by immunologic methodOrdered By: Cielo Tovar on 01-18-2025 Lower GI hemoglobin IA Ql (Stl) [facility] Bedside Glucoseon 01-17-2025 FINGERSTICK GLU 180 mg/dL High 74-106 [facility] Comment on above: Result Comment: BRISA GEMENT OF PATIENT CARE PER NURSING PROTOCOL Performed By: #### L 501.080 ####[facility] [address] [place], [address] FINGERSTICK GLU 236 mg/dL High 74-106 [facility] Comment on above: Result Comment: BRISA GEMENT OF PATIENT CARE PER NURSING PROTOCOL Performed By: #### L 501.080 ####[facility] [address] [place], [address] FINGERSTICK GLU 141 mg/dL High 74-106 [facility] Comment on above: Result Comment: BRISA GEMENT OF PATIENT CARE PER NURSING PROTOCOL Performed By: #### L 501.080 ####[facility] [address] [place], [address] FINGERSTICK GLU 173 mg/dL High 74-106 [facility] Comment on above: Result Comment: BRISA GEMENT OF PATIENT CARE PER NURSING PROTOCOL Performed By: #### L 501.080 ####[facility] [address] [place], [address] CBC W/Diff, Automatedon -08 09-2024 Basophils/100 WBC (Bld) 0.5 % Normal 0-1 [facility] Comment on above: Performed By: #### L 100.0100 ####[facility] [address] [place], [address] Eosinophils/100 WBC (Bld) 6.8 % High 0-5 [facility] Comment on above: Performed By: #### L 100.0100 ####[facility] [address] [place], [address] Erythrocyte distribution width (RBC) [Ratio] 18.8 % High 11.6-14.6 [facility] Comment on above: Performed By: #### L 100.0100 ####[facility] [address] [place], [address] Hematocrit (Bld) [Volume fraction] 22.2 % Low 40-54 [facility] Comment on above: Performed By: #### L 100.0100 ####[facility] [address] [place], [address] Hemoglobin (Bld) [Mass/Vol] 7.5 g/dL Low 13.0-16.5 [facility] Comment on above: Performed By: #### L 100.0100 ####[facility] [address] [place], [address] Lymphocytes/100 WBC (Bld) 12.9 % Low 19-41 [facility] Comment on above: Performed By: #### L 100.0100 ####[facility] [address] [place], [address] MCH (RBC) [Entitic mass] 30.0 pg Normal 27.0-32.0 [facility] Comment on above: Performed By: #### L 100.0100 ####[facility] [address] [place], [address] MCHC (RBC) [Mass/Vol] 33.8 g/dL Normal 32-36 [facility] Comment on above: Performed By: #### L 100.0100 ####[facility] [address] [place], [address] MCV (RBC) [Entitic vol] 88.8 fL Normal 80-94 [facility] Comment on above: Performed By: #### L 100.0100 ####[facility] [address] [place], [address] Monocytes/100 WBC (Bld) 11.5 % High 0-10 [facility] Comment on above: Performed By: #### L 100.0100 ####[facility] [address] [place], [address] Neutrophils/100 WBC (Bld) 67.2 % Normal 47-70 [facility] Comment on above: Performed By: #### L 100.0100 ####[facility] [address] [place], [address] Nucleated RBC (Bld) [#/Vol] 0 10*3/uL Normal 0-5 [facility] Comment on above: Performed By: #### L 100.0100 ####[facility] [address] [place], [address] Platelet mean volume (Bld) [Entitic vol] 10.7 fL Normal 6.2-12.0 [facility] Comment on above: Performed By: #### L 100.0100 ####[facility] [address] [place], [address] Platelets (Bld) [#/Vol] 109 10*3/uL Low 150-450 [facility] Comment on above: Performed By: #### L 100.0100 ####[facility] [address] [place], [address] RBC (Bld) [#/Vol] 2.50 10*6/uL Low 4.6-6.2 [facility] Comment on above: Performed By: #### L 100.0100 ####[facility] [address] [place], [address] RDW SD 58.8 fl High 35.1-43.9 [facility] Comment on above: Performed By: #### L 100.0100 ####[facility] [address] [place], [place], [address] WBC (Bld) [#/Vol] 8.4 10*3/uL Normal 4.4-11.0 [facility] Comment on above: Performed By: #### L 100.0100 ####[facility] [address] [place], [place], [address] Serum or plasma vancomycin m easurement (mass/volume)Ordered By: Cielo Tovar on 01-16-2025 Vancomycin [Mass/Vol] 7.7 ug/mL 0.0-15.0 [facility] Magnetic resonance imaging r eportOrdered By: Kenneth Barton on 01-14-2025 Study report [facility] Work Phone: Trough vancomycin levelOrder ed By: Cielo Tovar on 01-14-2025 Vancomycin trough [Mass/Vol] 21.4 ug/mL High 5.0-15.0 [facility] Iron measurement (mass/mass) Ordered By: Cielo Tovar on 01-13-2025 Iron (Unsp spec) [Mass/Mass] 110 ug/dL 65-175 [facility] Magnetic resonance imaging r eportOrdered By: Jerry Osorio on 01-13-2025 Study report [facility] No Panel InformationOrdered By: Cielo Tovar on 01-13-2025 101 ug/dL Low 228-428 [facility] Serum or plasma ferritin wei surement (mass/volume)Ordered By: Cielo Tovar on 01-13-2025 Ferritin [Mass/Vol] 76 ng/mL 37-417 [facility] Serum or plasma iron saturat ion measurement (mass fraction)Ordered By: Cielo Tovar on 01-13-2025 Iron saturation [Mass fraction] 52.1 % 9-55 [facility] Absolute lymphocyte countOrd ered By: Breann Mendez on 01-09-2025 Lymphocytes Auto (Unsp spec) [#/Vol] 0.95 10*3/uL 0.83-4.51 [facility] Anion gap in Serum or Plasma Ordered By: Remus Vanessa on 01-09-2025 Anion gap [Moles/Vol] 13 mmol/L 5-15 [facility] Automated lymphocyte count a s percentage of total leukocytesOrdered By: Remus Ungur on 01-09-2025 Lymphocytes/100 WBC Auto (Unsp spec) 7.2 % Low 19-41 [facility] BUN/creatinine ratioOrdered By: Remus Ungur on 01-09-2025 Urea nitrogen/Creatinine [Mass ratio] 13.4 mg/mg 10-20 [facility] Basophil percentageOrdered B y: Remus Ungur on 01-09-2025 Basophils/100 WBC (Bld) 0.4 % 0-1 [facility] Bilirubin Test strip Ql (U)O rdered By: Remus Ungur on 01-09-2025 Bilirubin Ql (U) 1 mg/dL High Negative [facility] Bilirubin, totalOrdered By: Remus Ungur on 01-09-2025 Bilirubin [Mass/Vol] 1.15 mg/dL 0.00-1.30 [facility] Blood cultureOrdered By: Rem us Ungbrandon on 01-09-2025 Bacteria identified Cx Nom (Bld) No growth in 5 days. [facility] Bacteria identified Cx Nom (Bld) No growth in 5 days. [facility] CO2 (BldV) [Moles/Vol]Ordere d By: Yaritza Leo on 01-09-2025 CO2 [Moles/Vol] 15 mmol/L Low 23-33 [facility] Carbon dioxide, total [Moles /volume] in Central venous bloodOrdered By: Remus Ungbrandon on 01-09-2025 CO2 [Moles/Vol] 13.6 mmol/L Low 21.0-32.0 [facility] Chloride assayOrdered By: Josselyn Mendez on 01-09-2025 Chloride [Moles/Vol] 103 mmol/L 98-108 [facility] Eosinophil percentageOrdered By: Remus Ungur on 01-09-2025 Eosinophils/100 WBC (Bld) 4.2 % 0-5 [facility] Erythrocyte distribution wid th ratioOrdered By: Remus Ungur on 01-09-2025 Erythrocyte distribution width (RBC) [Ratio] 18.1 % High 11.6-14.6 [facility] Erythrocyte distribution wid th standard deviationOrdered By: Remus Ungur on 01-09-2025 Erythrocyte distribution width (RBC) [Ratio] 57.5 fl High 35.1-43.9 [facility] Glomerular filtration rate ( GFR) estimation/1.73 sq m using serum, plasma, or whole bOrdered By: Breann Mendez on 01-09-2025 GFR/1.73 sq M.predicted among non-blacks MDRD (S/P/Bld) [Vol rate/Area] 44 mL/min/{1.73_m2} Low >60 [facility] Hematocrit Auto (Bld) [Volum e fraction]Ordered By: Breann Mendez on 01-09-2025 Hematocrit (Bld) [Volume fraction] 24.3 % Low 40-54 [facility] Hemoglobin measurementOrdere d By: Breann Mendez on 01-09-2025 Hemoglobin (Bld) [Mass/Vol] 7.9 g/dL Low 13.0-16.5 [facility] Immature granulocytes/100 WB C Auto (Bld)Ordered By: Breann Mendez on 01-09-2025 Immature granulocytes/100 WBC (Bld) 0.900 % 0.0-0.9 [facility] Ketones Test strip Ql (U)Ord ered By: Breann Mendez on 01-09-2025 Ketones Ql (U) 5 mg/dl High Negative [facility] MCV (mean corpuscular volume ) determinationOrdered By: Breann Mendez on 01-09-2025 MCV (RBC) [Entitic vol] 90.3 fL 80-94 [facility] Mean corpuscular hemoglobin (MCH) determinationOrdered By: Breann Mendez on 01-09-2025 MCH (RBC) [Entitic mass] 29.4 pg 27.0-32.0 [facility] Monocyte percentageOrdered B y: Breann Mendez on 01-09-2025 Monocytes/100 WBC (Bld) 6.7 % 0-10 [facility] Mucus LM Ql (Urine sed)Order ed By: Breann Mendez on 01-09-2025 Mucus Ql (Urine sed) 0 SEEN /hpf [facility] Neutrophil percentageOrdered By: Breann Mendez on 01-09-2025 Neutrophils/100 WBC (Bld) 80.6 % High 47-70 [facility] Nitrite Test strip Ql (U)Ord ered By: Breann Mendez on 01-09-2025 Nitrite Ql (U) Negative Negative [facility] No Panel InformationOrdered By: Yaritza Leo on 01-09-2025 TRAMAINE [facility] Not entered [facility] No Panel InformationOrdered By: Breann Mendez on 01-09-2025 68 U/L High <38 [facility] Platelet countOrdered By: Josselyn Mendez on 01-09-2025 Platelets (Bld) [#/Vol] 114 10*3/uL Low 150-450 [facility] Potassium measurement (mass/ volume)Ordered By: Breann Mendez on 01-09-2025 Potassium (Unsp spec) [Mass/Vol] 3.6 mmol/L 3.3-5.1 [facility] Protein Test strip Ql (U)Ord ered By: Breann Mendez on 01-09-2025 Protein Ql (U) 500 mg/dl High Negative [facility] RBC Auto (Bld) [#/Vol]Ordere d By: Breann Mendez on 01-09-2025 RBC (Bld) [#/Vol] 2.69 10*6/uL Low 4.6-6.2 [facility] Serum creatinine measurement (mass/volume)Ordered By: Breann Mendez on 01-09-2025 Creatinine [Mass/Vol] 1.77 mg/dL High 0.70-1.20 [facility] Serum globulin measurementOr dered By: Breann Mendez on 01-09-2025 Globulin (S) [Mass/Vol] 2.9 g/dL 2.2-4.2 [facility] Serum glucose measurement (m ass/volume)Ordered By: Breann Mendez on 01-09-2025 Glucose [Mass/Vol] 149 mg/dL High 70-99 [facility] Serum or plasma alanine thomas otransferase (ALT) measurementOrdered By: Breann Mendez on 01-09-2025 ALT [Catalytic activity/Vol] 42 U/L <47 [facility] Serum or plasma albumin roosevelt urement (mass/volume)Ordered By: Breann Mendez on 01-09-2025 Albumin [Mass/Vol] 2.4 g/dL Low 3.5-5.0 [facility] Serum or plasma albumin/glob ulin mass ratioOrdered By: Breann Mendez on 01-09-2025 Albumin/Globulin [Mass ratio] 0.8 {ratio} Low 0.9-2.4 [facility] Serum or plasma alkaline kendrick sphatase measurementOrdered By: Breann Mendez on 01-09-2025 ALP [Catalytic activity/Vol] 196 U/L High 40-129 [facility] Serum or plasma calcium roosevelt urement (mass/volume)Ordered By: Remus Mendez on 01-09-2025 Calcium [Mass/Vol] 8.4 mg/dL 7.6-11.0 [facility] Serum or plasma creatine kin ase activityOrdered By: Yaritza Leo on 01-09-2025 CK [Catalytic activity/Vol] 34 U/L 24-195 [facility] Serum or plasma urea nitroge n measurement (mass/volume)Ordered By: Breann Mendez on 01-09-2025 Urea nitrogen [Mass/Vol] 24 mg/dL High 4-19 [facility] Sodium levelOrdered By: Veena Mendez on 01-09-2025 Sodium [Moles/Vol] 129 mmol/L Low 133-145 [facility] Squamous epithelial cells de tection in urine sediment by light microscopyOrdered By: Breann Mendez on 01-09-2025 Epithelial cells.squamous LM Ql (Urine sed) 0-5 SEEN /hpf 0-5 [facility] Total proteinOrdered By: Ramona Mendez on 01-09-2025 Protein [Mass/Vol] 5.3 g/dL Low 5.9-8.4 [facility] Urine clarityOrdered By: Rem us Mendez on 01-09-2025 Clarity (U) Turbid Clear [facility] Urine color determinationOrd ered By: Breann Mendez on 01-09-2025 Color (U) Red Yellow [facility] Urine cultureOrdered By: Rem us Mendez on 01-09-2025 Bacteria identified Cx Nom (U) Yeast, not Mary albicans Abnormal [facility] Urine glucose detectionOrder ed By: Breann Mendez on 01-09-2025 Glucose Ql (U) Normal mg/dl Normal [facility] Urine leukocyte esterase det ection by dipstickOrdered By: Breann Mendez on 01-09-2025 Leukocyte esterase Test strip Ql (U) 500 /ul High Negative [facility] Urine pHOrdered By: Breann Landers gur on 01-09-2025 pH (U) 6.0 [pH] 5.0 - 8.0 [facility] Urine sediment bacteria coun t by microscopy (number/high power field)Ordered By: Breann Mendez on 01-09-2025 Bacteria LM.HPF (Urine sed) [#/Area] 0 /[HPF] None Seen [facility] Urine specific gravity measu rementOrdered By: Breann Mendez on 01-09-2025 Specific gravity (U) [Rel density] 1.015 1.002-1.030 [facility] Urine urobilinogen measureme ntOrdered By: Breann Mendez on 01-09-2025 Urobilinogen Ql (U) Normal mg/dl Normal [facility] Venous blood ammonia measure mentOrdered By: Lupillo Robbins on 01-09-2025 Ammonia (P) [Moles/Vol] 61.1 umol/L High 16-60 [facility] Venous blood base excess wei surementOrdered By: Yaritza Leo on 01-09-2025 Base excess Calc (BldV) [Moles/Vol] -11 mmol/L Low -1.0-3.5 [facility] Venous blood bicarbonate wei surementOrdered By: Yaritza Leo on 01-09-2025 HCO3 (Bld) [Moles/Vol] 14 mmol/L Low 22-26 [facility] Venous blood pH measurementO rdered By: Yaritza Leo on 01-09-2025 pH (BldV) 7.36 [pH] 7.32-7.42 [facility] Venous blood partial pressur e of carbon dioxide measurementOrdered By: Yaritza Leo on 01-09-2025 CO2 (BldV) [Partial pressure] 24.7 mm[Hg] Low 41-51 [facility] Venous blood partial pressur e of oxygen measurementOrdered By: Yaritza Leo on 01-09-2025 Oxygen (BldV) [Partial pressure] 49 mm[Hg] High 25-40 [facility] White blood cell (WBC) count Ordered By: Breann Mendez on 01-09-2025 WBC (Bld) [#/Vol] 13.2 10*3/uL High 4.4-11.0 [facility] White blood cell countOrdere d By: Breann Mendez on 01-09-2025 White blood cell count 50-100 SEEN /hpf 0-5 [facility] Absolute lymphocyte countOrd ered By: Hill Acuña on 01-05-2025 Lymphocytes Auto (Unsp spec) [#/Vol] 0.94 10*3/uL 0.83-4.51 [facility] Anion gap in Serum or Plasma Ordered By: Hill Acuña on 01-05-2025 Anion gap [Moles/Vol] 9 mmol/L 5-15 [facility] Automated lymphocyte count a s percentage of total leukocytesOrdered By: Hill Acuña on 01-05-2025 Lymphocytes/100 WBC Auto (Unsp spec) 13.4 % Low 19-41 [facility] BUN/creatinine ratioOrdered By: Hill Acuña on 01-05-2025 Urea nitrogen/Creatinine [Mass ratio] 11.9 mg/mg 10-20 [facility] Basophil percentageOrdered B y: Hill Acuña on 01-05-2025 Basophils/100 WBC (Bld) 0.4 % 0-1 [facility] Carbon dioxide, total [Moles /volume] in Central venous bloodOrdered By: Hill Acuña on 01-05-2025 CO2 [Moles/Vol] 18.5 mmol/L Low 21.0-32.0 [facility] Chloride assayOrdered By: Kvng Acuña on 01-05-2025 Chloride [Moles/Vol] 101 mmol/L 98-108 [facility] Eosinophil percentageOrdered By: Hill Acuña on 01-05-2025 Eosinophils/100 WBC (Bld) 5.1 % High 0-5 [facility] Erythrocyte distribution wid th ratioOrdered By: Hill Acuña on 01-05-2025 Erythrocyte distribution width (RBC) [Ratio] 16.4 % High 11.6-14.6 [facility] Erythrocyte distribution wid th standard deviationOrdered By: Hill Acuña on 01-05-2025 Erythrocyte distribution width (RBC) [Ratio] 51.8 fl High 35.1-43.9 [facility] Glomerular filtration rate ( GFR) estimation/1.73 sq m using serum, plasma, or whole bOrdered By: Hill Acuña on 01-05-2025 GFR/1.73 sq M.predicted among non-blacks MDRD (S/P/Bld) [Vol rate/Area] 92 mL/min/{1.73_m2} >60 [facility] deOrdered By: Hill Acuña on 01-05-2025 Glucose [Mass/Vol] 163 mg/dL High 74-106 [facility] Glucose [Mass/Vol] 191 mg/dL High 74-106 [facility] Hematocrit Auto (Bld) [Volum e fraction]Ordered By: Hill Acuña on 01-05-2025 Hematocrit (Bld) [Volume fraction] 22.3 % Low 40-54 [facility] Hemoglobin measurementOrdere d By: Hill Acuña on 01-05-2025 Hemoglobin (Bld) [Mass/Vol] 7.5 g/dL Low 13.0-16.5 [facility] Immature granulocytes/100 WB C Auto (Bld)Ordered By: Hill Acuña on 01-05-2025 Immature granulocytes/100 WBC (Bld) 0.400 % 0.0-0.9 [facility] MCV (mean corpuscular volume ) determinationOrdered By: Hill Acuña on 01-05-2025 MCV (RBC) [Entitic vol] 86.4 fL 80-94 [facility] Mean corpuscular hemoglobin (MCH) determinationOrdered By: Hill Acuña on 01-05-2025 MCH (RBC) [Entitic mass] 29.1 pg 27.0-32.0 [facility] Monocyte percentageOrdered B y: Hill Acuña on 01-05-2025 Monocytes/100 WBC (Bld) 11.6 % High 0-10 [facility] Neutrophil percentageOrdered By: Hill Acuña on 01-05-2025 Neutrophils/100 WBC (Bld) 69.1 % 47-70 [facility] Platelet countOrdered By: Kvng Acuña on 01-05-2025 Platelets (Bld) [#/Vol] 81 10*3/uL Low 150-450 [facility] Potassium measurement (mass/ volume)Ordered By: Hill Acuña on 01-05-2025 Potassium (Unsp spec) [Mass/Vol] 3.6 mmol/L 3.3-5.1 [facility] RBC Auto (Bld) [#/Vol]Ordere d By: Hill Acuña on 01-05-2025 RBC (Bld) [#/Vol] 2.58 10*6/uL Low 4.6-6.2 [facility] Serum creatinine measurement (mass/volume)Ordered By: Hill Acuña on 01-05-2025 Creatinine [Mass/Vol] 0.95 mg/dL 0.70-1.20 [facility] Serum glucose measurement (m ass/volume)Ordered By: Hill Acuña on 01-05-2025 Glucose [Mass/Vol] 356 mg/dL High 70-99 [facility] Serum or plasma calcium roosevelt urement (mass/volume)Ordered By: Hill Acuña on 01-05-2025 Calcium [Mass/Vol] 7.9 mg/dL 7.6-11.0 [facility] Serum or plasma urea nitroge n measurement (mass/volume)Ordered By: Hill Acuña on 01-05-2025 Urea nitrogen [Mass/Vol] 11 mg/dL 4-19 [facility] Sodium levelOrdered By: Paulino Acuña on 01-05-2025 Sodium [Moles/Vol] 128 mmol/L Low 133-145 [facility] White blood cell (WBC) count Ordered By: Hill Acuña on 01-05-2025 WBC (Bld) [#/Vol] 7.0 10*3/uL 4.4-11.0 [facility] Bilirubin, totalOrdered By: Hill Acuña on 01-04-2025 Bilirubin [Mass/Vol] 0.90 mg/dL 0.00-1.30 [facility] Blood manual differential co mment interpretation (narrative result)Ordered By: Hill Acuña on 01-04-2025 Manual differential comment Marco Antonio (Bld) [Interp] SCANNED [facility] Magnesium measurement (mass/ volume)Ordered By: Hill Acuña on 01-04-2025 Magnesium (Unsp spec) [Mass/Vol] 1.3 mg/dL Low 1.5-2.2 [facility] No Panel InformationOrdered By: Hill Acuña on 01-04-2025 54 U/L High <38 [facility] Serum globulin measurementOr dered By: Hill Acuña on 01-04-2025 Globulin (S) [Mass/Vol] 2.9 g/dL 2.2-4.2 [facility] Serum or plasma alanine thomas otransferase (ALT) measurementOrdered By: Hill Acuña on 01-04-2025 ALT [Catalytic activity/Vol] 26 U/L <47 [facility] Serum or plasma albumin roosevelt urement (mass/volume)Ordered By: Hill Acuña on 01-04-2025 Albumin [Mass/Vol] 2.4 g/dL Low 3.5-5.0 [facility] Serum or plasma albumin/glob ulin mass ratioOrdered By: Hill Acuña on 01-04-2025 Albumin/Globulin [Mass ratio] 0.9 {ratio} 0.9-2.4 [facility] Serum or plasma alkaline kendrick sphatase measurementOrdered By: Hill Acuña on 01-04-2025 ALP [Catalytic activity/Vol] 171 U/L High 40-129 [facility] Total proteinOrdered By: Hugo Acuña on 01-04-2025 Protein [Mass/Vol] 5.3 g/dL Low 5.9-8.4 [facility] Absolute lymphocyte countOrd ered By: Roddy Reeves on 01-02-2025 Lymphocytes Auto (Unsp spec) [#/Vol] 1.55 10*3/uL 0.83-4.51 [facility] Anion gap in Serum or Plasma Ordered By: Roddy Reeves on 01-02-2025 Anion gap [Moles/Vol] 17 mmol/L High 5-15 [facility] Automated lymphocyte count a s percentage of total leukocytesOrdered By: Roddy Reeves on 01-02-2025 Lymphocytes/100 WBC Auto (Unsp spec) 12.2 % Low 19-41 [facility] BUN/creatinine ratioOrdered By: Roddy Reeves on 01-02-2025 Urea nitrogen/Creatinine [Mass ratio] 12.9 mg/mg 10-20 [facility] Basophil percentageOrdered B y: Roddy Reeves on 01-02-2025 Basophils/100 WBC (Bld) 0.4 % 0-1 [facility] Bilirubin Test strip Ql (U)O rdered By: Roddy Reeves on 01-02-2025 Bilirubin Ql (U) Negative Negative [facility] Bilirubin, totalOrdered By: Roddy Reeves on 01-02-2025 Bilirubin [Mass/Vol] 0.90 mg/dL 0.00-1.30 [facility] [place] Carbon dioxide, total [Moles /volume] in Central venous bloodOrdered By: Roddy Reeves on 01-02-2025 CO2 [Moles/Vol] 19.6 mmol/L Low 21.0-32.0 [facility] Chloride assayOrdered By: Catrachito Reeves on 01-02-2025 Chloride [Moles/Vol] 95 mmol/L Low 98-108 [facility] [place] Eosinophil percentageOrdered By: Roddy Reeves on 01-02-2025 Eosinophils/100 WBC (Bld) 6.9 % High 0-5 [facility] Erythrocyte distribution wid th ratioOrdered By: Roddy Reeves on 01-02-2025 Erythrocyte distribution width (RBC) [Ratio] 16.4 % High 11.6-14.6 [facility] Erythrocyte distribution wid th standard deviationOrdered By: Roddy Reeves on 01-02-2025 Erythrocyte distribution width (RBC) [Ratio] 51.1 fl High 35.1-43.9 [facility] Glomerular filtration rate ( GFR) estimation/1.73 sq m using serum, plasma, or whole bOrdered By: Roddy Reeves on 01-02-2025 GFR/1.73 sq M.predicted among non-blacks MDRD (S/P/Bld) [Vol rate/Area] 19 mL/min/{1.73_m2} Low >60 [facility] Hematocrit Auto (Bld) [Volum e fraction]Ordered By: Roddy Reeves on 01-02-2025 Hematocrit (Bld) [Volume fraction] 28.0 % Low 40-54 [facility] Hemoglobin measurementOrdere d By: Roddy Reeves on 01-02-2025 Hemoglobin (Bld) [Mass/Vol] 9.5 g/dL Low 13.0-16.5 [facility] Immature granulocytes/100 WB C Auto (Bld)Ordered By: Roddy Reeves on 01-02-2025 Immature granulocytes/100 WBC (Bld) 0.600 % 0.0-0.9 [facility] Ketones Test strip Ql (U)Ord ered By: Roddy Reeves on 01-02-2025 Ketones Ql (U) 5 mg/dl High Negative [facility] MCV (mean corpuscular volume ) determinationOrdered By: Roddy Reeves on 01-02-2025 MCV (RBC) [Entitic vol] 87.2 fL 80-94 [facility] Magnesium measurement (mass/ volume)Ordered By: Roddy Reeves on 01-02-2025 Magnesium (Unsp spec) [Mass/Vol] 2.0 mg/dL 1.5-2.2 [facility] Mean corpuscular hemoglobin (MCH) determinationOrdered By: Roddy Reeves on 01-02-2025 MCH (RBC) [Entitic mass] 29.6 pg 27.0-32.0 [facility] Monocyte percentageOrdered B y: Roddy Reeves on 01-02-2025 Monocytes/100 WBC (Bld) 11.9 % High 0-10 [facility] Mucus LM Ql (Urine sed)Order ed By: Roddy Reeves on 01-02-2025 Mucus Ql (Urine sed) 0 SEEN /hpf [facility] Neutrophil percentageOrdered By: Roddy Reeves on 01-02-2025 Neutrophils/100 WBC (Bld) 68.0 % 47-70 [facility] Nitrite Test strip Ql (U)Ord ered By: Roddy Reeves on 01-02-2025 Nitrite Ql (U) Negative Negative [facility] No Panel InformationOrdered By: Roddy Reeves on 01-02-2025 37 U/L <38 [facility] Platelet countOrdered By: Catrachito Reeves on 01-02-2025 Platelets (Bld) [#/Vol] 171 10*3/uL 150-450 [facility] Potassium measurement (mass/ volume)Ordered By: Roddy Reeves on 01-02-2025 Potassium (Unsp spec) [Mass/Vol] 2.6 mmol/L Low 3.3-5.1 [facility] Protein Test strip Ql (U)Ord ered By: Roddy Reeves on 01-02-2025 Protein Ql (U) 100 mg/dl High Negative [facility] RBC Auto (Bld) [#/Vol]Ordere d By: Roddy Reeves on 01-02-2025 RBC (Bld) [#/Vol] 3.21 10*6/uL Low 4.6-6.2 [facility] Serum creatinine measurement (mass/volume)Ordered By: Roddy Reeves on 01-02-2025 Creatinine [Mass/Vol] 3.54 mg/dL High 0.70-1.20 [facility] Serum globulin measurementOr dered By: Roddy Reeves on 01-02-2025 Globulin (S) [Mass/Vol] 3.4 g/dL 2.2-4.2 [facility] Serum glucose measurement (m ass/volume)Ordered By: Roddy Reeves on 01-02-2025 Glucose [Mass/Vol] 164 mg/dL High 70-99 [facility] Serum or plasma alanine thomas otransferase (ALT) measurementOrdered By: Roddy Reeves on 01-02-2025 ALT [Catalytic activity/Vol] 23 U/L <47 [facility] Serum or plasma albumin roosevelt urement (mass/volume)Ordered By: Roddy Reeves on 01-02-2025 Albumin [Mass/Vol] 2.8 g/dL Low 3.5-5.0 [facility] Serum or plasma albumin/glob ulin mass ratioOrdered By: Roddy Reeves on 01-02-2025 Albumin/Globulin [Mass ratio] 0.8 {ratio} Low 0.9-2.4 [facility] Serum or plasma alkaline kendrick sphatase measurementOrdered By: Roddy Reeves on 01-02-2025 ALP [Catalytic activity/Vol] 191 U/L High 40-129 [facility] Serum or plasma calcium roosevelt urement (mass/volume)Ordered By: Roddy Reeves on 01-02-2025 Calcium [Mass/Vol] 9.0 mg/dL 7.6-11.0 [facility] Serum or plasma ethanol roosevelt urement (mass/volume)Ordered By: Roddy Reeves on 01-02-2025 Ethanol [Mass/Vol] mg/dL <10.1 [facility] Serum or plasma urea nitroge n measurement (mass/volume)Ordered By: Roddy Reeves on 01-02-2025 Urea nitrogen [Mass/Vol] 46 mg/dL High 4-19 [facility] Sodium levelOrdered By: Valentín Reeves on 01-02-2025 Sodium [Moles/Vol] 132 mmol/L Low 133-145 [facility] Squamous epithelial cells de tection in urine sediment by light microscopyOrdered By: Roddy Reeves on 01-02-2025 Epithelial cells.squamous LM Ql (Urine sed) 0 SEEN /hpf 0-5 [facility] Total proteinOrdered By: Zoila Reeves on 01-02-2025 Protein [Mass/Vol] 6.1 g/dL 5.9-8.4 [facility] Urine clarityOrdered By: Zoila Reeves on 01-02-2025 Clarity (U) Turbid Clear [facility] Urine color determinationOrd ered By: Roddy Reeves on 01-02-2025 Color (U) Red Yellow [facility] Urine cultureOrdered By: Zoila Reeves on 01-02-2025 Bacteria identified Cx Nom (U) Yeast, not Mary albicans Abnormal [facility] Urine glucose detectionOrder ed By: Roddy Reeves on 01-02-2025 Glucose Ql (U) Normal mg/dl Normal [facility] Urine leukocyte esterase det ection by dipstickOrdered By: Roddy Reeves on 01-02-2025 Leukocyte esterase Test strip Ql (U) 500 /ul High Negative [facility] Urine pHOrdered By: Roddy gonzalez on 01-02-2025 pH (U) 6.0 [pH] 5.0 - 8.0 [facility] Urine sediment bacteria coun t by microscopy (number/high power field)Ordered By: Roddy Reeves on 01-02-2025 Bacteria LM.HPF (Urine sed) [#/Area] 3 /[HPF] None Seen [facility] Urine specific gravity measu rementOrdered By: Roddy Reeves on 01-02-2025 Specific gravity (U) [Rel density] 1.015 1.002-1.030 [facility] Urine urobilinogen measureme ntOrdered By: Roddy Reeves on 01-02-2025 Urobilinogen Ql (U) Normal mg/dl Normal [facility] Venous blood ammonia measure mentOrdered By: Roddy Reeves on 01-02-2025 Ammonia (P) [Moles/Vol] 40.4 umol/L 16-60 [facility] White blood cell (WBC) count Ordered By: Roddy Reeves on 01-02-2025 WBC (Bld) [#/Vol] 12.7 10*3/uL High 4.4-11.0 [facility] White blood cell countOrdere d By: Roddy Reeves on 01-02-2025 White blood cell count 25-50 SEEN /hpf 0-5 [facility] Absolute lymphocyte countOrd ered By: Mina Blood on 12-30-2024 Lymphocytes Auto (Unsp spec) [#/Vol] 1.31 10*3/uL 0.83-4.51 [facility] Anion gap in Serum or Plasma Ordered By: Mina Blood on 12-30-2024 Anion gap [Moles/Vol] 15 mmol/L 5-15 [facility] Automated lymphocyte count a s percentage of total leukocytesOrdered By: Mina Blood on 12-30-2024 Lymphocytes/100 WBC Auto (Unsp spec) 14.0 % Low 19-41 [facility] BUN/creatinine ratioOrdered By: Mina Blood on 12-30-2024 Urea nitrogen/Creatinine [Mass ratio] 14.1 mg/mg 10-20 [facility] Basophil percentageOrdered B y: Mina Blood on 12-30-2024 Basophils/100 WBC (Bld) 0.4 % 0-1 [facility] Bilirubin Test strip Ql (U)O rdered By: Mina Blood on 12-30-2024 Bilirubin Ql (U) Negative Negative [facility] Carbon dioxide, total [Moles /volume] in Central venous bloodOrdered By: Mina Blood on 12-30-2024 CO2 [Moles/Vol] 22.1 mmol/L 21.0-32.0 [facility] Chloride assayOrdered By: Marcella Blood on 12-30-2024 Chloride [Moles/Vol] 91 mmol/L Low 98-108 [facility] [place] Eosinophil percentageOrdered By: Mina Blood on 12-30-2024 Eosinophils/100 WBC (Bld) 6.2 % High 0-5 [facility] Erythrocyte distribution wid th ratioOrdered By: Mina Blood on 12-30-2024 Erythrocyte distribution width (RBC) [Ratio] 16.1 % High 11.6-14.6 [facility] Erythrocyte distribution wid th standard deviationOrdered By: Mina Blood on 12-30-2024 Erythrocyte distribution width (RBC) [Ratio] 50.9 fl High 35.1-43.9 [facility] Glomerular filtration rate ( GFR) estimation/1.73 sq m using serum, plasma, or whole bOrdered By: Mina Blood on 12-30-2024 GFR/1.73 sq M.predicted among non-blacks MDRD (S/P/Bld) [Vol rate/Area] 37 mL/min/{1.73_m2} Low >60 [facility] deOrdered By: Mina Blood on 12-30-2024 Glucose [Mass/Vol] 453 mg/dL High 74-106 [facility] Hematocrit Auto (Bld) [Volum e fraction]Ordered By: Mina Blood on 12-30-2024 Hematocrit (Bld) [Volume fraction] 25.8 % Low 40-54 [facility] Hemoglobin measurementOrdere d By: Mina Blood on 12-30-2024 Hemoglobin (Bld) [Mass/Vol] 8.7 g/dL Low 13.0-16.5 [facility] Immature granulocytes/100 WB C Auto (Bld)Ordered By: Mina Blood on 12-30-2024 Immature granulocytes/100 WBC (Bld) 0.600 % 0.0-0.9 [facility] Ketones Test strip Ql (U)Ord ered By: Mina Blood on 12-30-2024 Ketones Ql (U) Negative Negative [facility] MCV (mean corpuscular volume ) determinationOrdered By: Mina Blood on 12-30-2024 MCV (RBC) [Entitic vol] 88.1 fL 80-94 [facility] Magnesium measurement (mass/ volume)Ordered By: Mina Blood on 12-30-2024 Magnesium (Unsp spec) [Mass/Vol] 1.3 mg/dL Low 1.5-2.2 [facility] Mean corpuscular hemoglobin (MCH) determinationOrdered By: Mina Blood on 12-30-2024 MCH (RBC) [Entitic mass] 29.7 pg 27.0-32.0 [facility] Monocyte percentageOrdered B y: Mina Blood on 12-30-2024 Monocytes/100 WBC (Bld) 9.1 % 0-10 [facility] Mucus LM Ql (Urine sed)Order ed By: Mina Blood on 12-30-2024 Mucus Ql (Urine sed) 0 SEEN /hpf [facility] Neutrophil percentageOrdered By: Mina Blood on 12-30-2024 Neutrophils/100 WBC (Bld) 69.7 % 47-70 [facility] Nitrite Test strip Ql (U)Ord ered By: Mina Blood on 12-30-2024 Nitrite Ql (U) Negative Negative [facility] Platelet countOrdered By: Marcella Blood on 12-30-2024 Platelets (Bld) [#/Vol] 131 10*3/uL Low 150-450 [facility] Potassium measurement (mass/ volume)Ordered By: Mina Blood on 12-30-2024 Potassium (Unsp spec) [Mass/Vol] 3.2 mmol/L Low 3.3-5.1 [facility] Protein Test strip Ql (U)Ord ered By: Mina Blood on 12-30-2024 Protein Ql (U) 100 mg/dl High Negative [facility] RBC Auto (Bld) [#/Vol]Ordere d By: Mina Blood on 12-30-2024 RBC (Bld) [#/Vol] 2.93 10*6/uL Low 4.6-6.2 [facility] Serum creatinine measurement (mass/volume)Ordered By: Mina Blood on 12-30-2024 Creatinine [Mass/Vol] 2.05 mg/dL High 0.70-1.20 [facility] Serum glucose measurement (m ass/volume)Ordered By: Mina Blood on 12-30-2024 Glucose [Mass/Vol] 608 mg/dL High 70-99 [facility] Serum or plasma calcium roosevelt urement (mass/volume)Ordered By: Mina Blodo on 12-30-2024 Calcium [Mass/Vol] 9.1 mg/dL 7.6-11.0 [facility] Serum or plasma urea nitroge n measurement (mass/volume)Ordered By: Mina Blood on 12-30-2024 Urea nitrogen [Mass/Vol] 29 mg/dL High 4-19 [facility] Sodium levelOrdered By: Magen Blood on 12-30-2024 Sodium [Moles/Vol] 128 mmol/L Low 133-145 [facility] Squamous epithelial cells de tection in urine sediment by light microscopyOrdered By: Mina Blood on 12-30-2024 Epithelial cells.squamous LM Ql (Urine sed) 0-5 SEEN /hpf 0-5 [facility] Transitional cells detection in urine sediment by light microscopyOrdered By: Mina Blood on 12-30-2024 Transitional cells LM Ql (Urine sed) 0-5 SEEN /hpf 0-5 [facility] Troponin T.cardiac [Mass/vol ume] in Serum or Plasma by High sensitivity methodOrdered By: Mina Blood on 12-30-2024 Troponin T.cardiac High sensitivity method [Mass/Vol] 20 ng/L <22 [facility] Troponin T.cardiac High sensitivity method [Mass/Vol] 19 ng/L <22 [facility] Urine clarityOrdered By: Ever Blood on 12-30-2024 Clarity (U) Cloudy Clear [facility] Urine color determinationOrd ered By: Mina Blood on 12-30-2024 Color (U) Lexis Yellow [facility] Urine cultureOrdered By: Ever Blood on 12-30-2024 Bacteria identified Cx Nom (U) GPC Poss Enterococcus sp Abnormal [facility] Bacteria identified Cx Nom (U) Positive Abnormal [facility] Urine glucose detectionOrder ed By: Mina Blood on 12-30-2024 Glucose Ql (U) 1000 mg/dl High Normal [facility] Urine leukocyte esterase det ection by dipstickOrdered By: Mina Blood on 12-30-2024 Leukocyte esterase Test strip Ql (U) 500 /ul High Negative [facility] Urine pHOrdered By: Mina ferrer on 12-30-2024 pH (U) 6.5 [pH] 5.0 - 8.0 [facility] Urine sediment bacteria coun t by microscopy (number/high power field)Ordered By: Mina Blood on 12-30-2024 Bacteria LM.HPF (Urine sed) [#/Area] 1 /[HPF] None Seen [facility] Urine specific gravity measu rementOrdered By: Mina Blood on 12-30-2024 Specific gravity (U) [Rel density] 1.010 1.002-1.030 [facility] Urine urobilinogen measureme ntOrdered By: Mina Blood on 12-30-2024 Urobilinogen Ql (U) Normal mg/dl Normal [facility] White blood cell (WBC) count Ordered By: Mina Blood on 12-30-2024 WBC (Bld) [#/Vol] 9.4 10*3/uL 4.4-11.0 [facility] White blood cell countOrdere d By: Mina Blood on 12-30-2024 White blood cell count >100 SEEN /hpf 0-5 [facility] Absolute lymphocyte countOrd ered By: Boone Carvajal on 12-26-2024 Lymphocytes Auto (Unsp spec) [#/Vol] 1.69 10*3/uL 0.83-4.51 [facility] Activated partial thrombopla stin time (aPTT) in platelet poor plasma by coagulation aOrdered By: Boone Carvajal on 12-26-2024 aPTT Coag (PPP) [Time] 36.3 s High 24.1-36.2 [facility] Anion gap in Serum or Plasma Ordered By: Boone Carvajal on 12-26-2024 Anion gap [Moles/Vol] 14 mmol/L 5-15 [facility] Automated lymphocyte count a s percentage of total leukocytesOrdered By: Boone Carvajal on 12-26-2024 Lymphocytes/100 WBC Auto (Unsp spec) 15.3 % Low 19-41 [facility] BUN/creatinine ratioOrdered By: Boone Carvajal on 12-26-2024 Urea nitrogen/Creatinine [Mass ratio] 10.3 mg/mg 10-20 [facility] Basophil percentageOrdered B y: Boone Carvajal on 12-26-2024 Basophils/100 WBC (Bld) 0.5 % 0-1 [facility] Beta-hydroxybutyrateOrdered By: Boone Carvajal on 12-26-2024 Beta hydroxybutyrate [Mass/Vol] 0.1 mmol/L 0.0-0.3 [facility] Bilirubin Test strip Ql (U)O rdered By: Boone Carvajal on 12-26-2024 Bilirubin Ql (U) Negative Negative [facility] Bilirubin, totalOrdered By: Boone Carvajal on 12-26-2024 Bilirubin [Mass/Vol] 1.04 mg/dL 0.00-1.30 [facility] [place] Carbon dioxide, total [Moles /volume] in Central venous bloodOrdered By: Boone Carvajal on 12-26-2024 CO2 [Moles/Vol] 20.4 mmol/L Low 21.0-32.0 [facility] Chloride assayOrdered By: Hunter Carvajal on 12-26-2024 Chloride [Moles/Vol] 100 mmol/L 98-108 [facility] [place] Eosinophil percentageOrdered By: Boone Carvajal on 12-26-2024 Eosinophils/100 WBC (Bld) 5.8 % High 0-5 [facility] Erythrocyte distribution wid th ratioOrdered By: Boone Carvajal on 12-26-2024 Erythrocyte distribution width (RBC) [Ratio] 16.3 % High 11.6-14.6 [facility] Erythrocyte distribution wid th standard deviationOrdered By: Boone Carvajal 12-26-2024 Erythrocyte distribution width (RBC) [Ratio] 54.4 fl High 35.1-43.9 [facility] Glomerular filtration rate ( GFR) estimation/1.73 sq m using serum, plasma, or whole bOrdered By: Boone Carvajal on 12-26-2024 GFR/1.73 sq M.predicted among non-blacks MDRD (S/P/Bld) [Vol rate/Area] 30 mL/min/{1.73_m2} Low >60 [facility] Hematocrit Auto (Bld) [Volum e fraction]Ordered By: Boone Carvajal on 12-26-2024 Hematocrit (Bld) [Volume fraction] 29.6 % Low 40-54 [facility] Hemoglobin measurementOrdere d By: Boone Carvajal on 12-26-2024 Hemoglobin (Bld) [Mass/Vol] 9.6 g/dL Low 13.0-16.5 [facility] Immature granulocytes/100 WB C Auto (Bld)Ordered By: Boone Carvajal on 12-26-2024 Immature granulocytes/100 WBC (Bld) 0.500 % 0.0-0.9 [facility] Ketones Test strip Ql (U)Ord ered By: Boone Carvajal on 12-26-2024 Ketones Ql (U) 5 mg/dl High Negative [facility] MCV (mean corpuscular volume ) determinationOrdered By: Boone Carvajal on 12-26-2024 MCV (RBC) [Entitic vol] 90.8 fL 80-94 [facility] Mean corpuscular hemoglobin (MCH) determinationOrdered By: Boone Carvajal on 12-26-2024 MCH (RBC) [Entitic mass] 29.4 pg 27.0-32.0 [facility] Monocyte percentageOrdered B y: Boone Carvajal on 12-26-2024 Monocytes/100 WBC (Bld) 7.4 % 0-10 [facility] Mucus LM Ql (Urine sed)Order ed By: Boone Carvajal on 12-26-2024 Mucus Ql (Urine sed) 0 SEEN /hpf [facility] Neutrophil percentageOrdered By: Boone Carvajal on 12-26-2024 Neutrophils/100 WBC (Bld) 70.5 % High 47-70 [facility] Nitrite Test strip Ql (U)Ord ered By: Boone Carvajal on 12-26-2024 Nitrite Ql (U) Negative Negative [facility] No Panel InformationOrdered By: Boone Carvajal on 12-26-2024 58 U/L High <38 [facility] Platelet countOrdered By: Hunter Carvajal on 12-26-2024 Platelets (Bld) [#/Vol] 139 10*3/uL Low 150-450 [facility] Potassium measurement (mass/ volume)Ordered By: Boone Carvajal on 12-26-2024 Potassium (Unsp spec) [Mass/Vol] 3.5 mmol/L 3.3-5.1 [facility] Protein Test strip Ql (U)Ord ered By: Boone Carvajal on 12-26-2024 Protein Ql (U) 500 mg/dl High Negative [facility] Prothrombin timeOrdered By: Boone Carvajal on 12-26-2024 PT Coag (PPP) [Time] 18.5 s High 11.7-14.9 [facility] [place] RBC Auto (Bld) [#/Vol]Ordere d By: Boone Carvajal on 12-26-2024 RBC (Bld) [#/Vol] 3.26 10*6/uL Low 4.6-6.2 [facility] Serum creatinine measurement (mass/volume)Ordered By: Boone Carvajal on 12-26-2024 Creatinine [Mass/Vol] 2.42 mg/dL High 0.70-1.20 [facility] Serum globulin measurementOr dered By: Boone Carvajal on 12-26-2024 Globulin (S) [Mass/Vol] 3.5 g/dL 2.2-4.2 [facility] Serum glucose measurement (m ass/volume)Ordered By: Boone Carvajal on 12-26-2024 Glucose [Mass/Vol] 386 mg/dL High 70-99 [facility] Serum or plasma alanine thomas otransferase (ALT) measurementOrdered By: Boone Carvajal on 12-26-2024 ALT [Catalytic activity/Vol] 27 U/L <47 [facility] Serum or plasma albumin roosevelt urement (mass/volume)Ordered By: Boone Carvajal on 12-26-2024 Albumin [Mass/Vol] 2.8 g/dL Low 3.5-5.0 [facility] Serum or plasma albumin/glob ulin mass ratioOrdered By: Boone Carvajal on 12-26-2024 Albumin/Globulin [Mass ratio] 0.8 {ratio} Low 0.9-2.4 [facility] Serum or plasma alkaline kendrick sphatase measurementOrdered By: Boone Carvajal 12-26-2024 ALP [Catalytic activity/Vol] 207 U/L High 40-129 [facility] Serum or plasma calcium roosevelt urement (mass/volume)Ordered By: Boone Carvajal on 12-26-2024 Calcium [Mass/Vol] 8.9 mg/dL 7.6-11.0 [facility] Serum or plasma urea nitroge n measurement (mass/volume)Ordered By: Boone Carvajal on 12-26-2024 Urea nitrogen [Mass/Vol] 25 mg/dL High 4-19 [facility] Sodium levelOrdered By: Boone Carvajal on 12-26-2024 Sodium [Moles/Vol] 135 mmol/L 133-145 [facility] Squamous epithelial cells de tection in urine sediment by light microscopyOrdered By: Boone Carvajal on 12-26-2024 Epithelial cells.squamous LM Ql (Urine sed) 0 SEEN /hpf 0-5 [facility] Total proteinOrdered By: Danita Carvajal on 12-26-2024 Protein [Mass/Vol] 6.3 g/dL 5.9-8.4 [facility] Urine clarityOrdered By: Danita Carvajal on 12-26-2024 Clarity (U) Cloudy Clear [facility] Urine color determinationOrd ered By: Boone Carvajal on 12-26-2024 Color (U) Lexis Yellow [facility] Urine cultureOrdered By: Danita Carvajal on 12-26-2024 Bacteria identified Cx Nom (U) Enterococcus 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 [facility] Urine glucose detectionOrder ed By: Boone Carvajal on 12-26-2024 Glucose Ql (U) Normal mg/dl Normal [facility] Urine leukocyte esterase det ection by dipstickOrdered By: Boone Carvajal on 12-26-2024 Leukocyte esterase Test strip Ql (U) 500 /ul High Negative [facility] Urine pHOrdered By: Boone romo on 12-26-2024 pH (U) 6.0 [pH] 5.0 - 8.0 [facility] Urine sediment bacteria coun t by microscopy (number/high power field)Ordered By: Boone Carvajal on 12-26-2024 Bacteria LM.HPF (Urine sed) [#/Area] 0 /[HPF] None Seen [facility] Urine specific gravity measu rementOrdered By: Boone Carvajal on 12-26-2024 Specific gravity (U) [Rel density] 1.015 1.002-1.030 [facility] Urine urobilinogen measureme ntOrdered By: Boone Carvajal on 12-26-2024 Urobilinogen Ql (U) Normal mg/dl Normal [facility] Venous blood ammonia measure mentOrdered By: Boone Carvajal on 12-26-2024 Ammonia (P) [Moles/Vol] 114.0 umol/L High 16-60 [facility] White blood cell (WBC) count Ordered By: Boone Carvajal on 12-26-2024 WBC (Bld) [#/Vol] 11.0 10*3/uL 4.4-11.0 [facility] White blood cell countOrdere d By: Boone Carvajal on 12-26-2024 White blood cell count 25-50 SEEN /hpf 0-5 [facility] Absolute lymphocyte countOrd ered By: Josy Elias on 12-07-2024 Lymphocytes Auto (Unsp spec) [#/Vol] 1.71 10*3/uL 0.83-4.51 [facility] Anion gap in Serum or Plasma Ordered By: Josy Elias on 12-07-2024 Anion gap [Moles/Vol] 12 mmol/L 5-15 [facility] Automated lymphocyte count a s percentage of total leukocytesOrdered By: Josy Elias on 12-07-2024 Lymphocytes/100 WBC Auto (Unsp spec) 18.4 % Low 19-41 [facility] BUN/creatinine ratioOrdered By: Josy Elias on 12-07-2024 Urea nitrogen/Creatinine [Mass ratio] 10.0 mg/mg 10-20 [facility] Basophil percentageOrdered B y: Josy Elias on 12-07-2024 Basophils/100 WBC (Bld) 0.6 % 0-1 [facility] Bilirubin, totalOrdered By: Josy Elias on 12-07-2024 Bilirubin [Mass/Vol] 1.21 mg/dL 0.00-1.30 [facility] [place] CNPTOUTREACHon 12-07-2024 CNPTOUTREACH Normal [facility] Carbon dioxide, total [Moles /volume] in Central venous bloodOrdered By: Josy Elias on 12-07-2024 CO2 [Moles/Vol] 20.0 mmol/L Low 21.0-32.0 [facility] Chloride assayOrdered By: Monica Elias on 12-07-2024 Chloride [Moles/Vol] 103 mmol/L 98-108 [facility] [place] Eosinophil percentageOrdered By: Josy Elias on 12-07-2024 Eosinophils/100 WBC (Bld) 5.1 % High 0-5 [facility] Erythrocyte distribution wid th ratioOrdered By: Josy Elias on 12-07-2024 Erythrocyte distribution width (RBC) [Ratio] 16.9 % High 11.6-14.6 [facility] Erythrocyte distribution wid th standard deviationOrdered By: Josy Elias on 12-07-2024 Erythrocyte distribution width (RBC) [Ratio] 57.4 fl High 35.1-43.9 [facility] Gamma glutamyl transferase ( GGT) measurementOrdered By: Josy Elias on 12-07-2024 Amylase [Catalytic activity/Vol] 103 U/L High 0-65 [facility] Glomerular filtration rate ( GFR) estimation/1.73 sq m using serum, plasma, or whole bOrdered By: Josy Elias on 12-07-2024 GFR/1.73 sq M.predicted among non-blacks MDRD (S/P/Bld) [Vol rate/Area] 44 mL/min/{1.73_m2} Low >60 [facility] Hematocrit Auto (Bld) [Volum e fraction]Ordered By: Josy Elias on 12-07-2024 Hematocrit (Bld) [Volume fraction] 26.2 % Low 40-54 [facility] Hemoglobin A1c percentageOrd ered By: Josy Elias on 12-07-2024 HbA1c (Bld) [Mass fraction] 7.2 % High <5.7 [facility] Hemoglobin measurementOrdere d By: Josy Elias on 12-07-2024 Hemoglobin (Bld) [Mass/Vol] 8.5 g/dL Low 13.0-16.5 [facility] Immature granulocytes/100 WB C Auto (Bld)Ordered By: Josy Elias on 12-07-2024 Immature granulocytes/100 WBC (Bld) 0.300 % 0.0-0.9 [facility] MCV (mean corpuscular volume ) determinationOrdered By: Josy Elias on 12-07-2024 MCV (RBC) [Entitic vol] 93.2 fL 80-94 [facility] Mean corpuscular hemoglobin (MCH) determinationOrdered By: Josy Elias on 12-07-2024 MCH (RBC) [Entitic mass] 30.2 pg 27.0-32.0 [facility] Monocyte percentageOrdered B y: Josy Elias on 12-07-2024 Monocytes/100 WBC (Bld) 12.1 % High 0-10 [facility] Neutrophil percentageOrdered By: Josy Elias on 12-07-2024 Neutrophils/100 WBC (Bld) 63.5 % 47-70 [facility] No Panel InformationOrdered By: Josy Elias on 12-07-2024 37 U/L <38 [facility] Platelet countOrdered By: Monica Elias on 12-07-2024 Platelets (Bld) [#/Vol] 145 10*3/uL Low 150-450 [facility] Potassium measurement (mass/ volume)Ordered By: Josy Elias on 12-07-2024 Potassium (Unsp spec) [Mass/Vol] 3.3 mmol/L 3.3-5.1 [facility] RBC Auto (Bld) [#/Vol]Ordere d By: Josy Elias on 12-07-2024 RBC (Bld) [#/Vol] 2.81 10*6/uL Low 4.6-6.2 [facility] Serum creatinine measurement (mass/volume)Ordered By: Josy Elias on 12-07-2024 Creatinine [Mass/Vol] 1.78 mg/dL High 0.70-1.20 [facility] Serum globulin measurementOr dered By: Josy Elias on 12-07-2024 Globulin (S) [Mass/Vol] 2.9 g/dL 2.2-4.2 [facility] Serum glucose measurement (m ass/volume)Ordered By: Josy Elias on 12-07-2024 Glucose [Mass/Vol] 185 mg/dL High 70-99 [facility] Serum or plasma alanine thomas otransferase (ALT) measurementOrdered By: Josy Elias on 12-07-2024 ALT [Catalytic activity/Vol] 24 U/L <47 [facility] Serum or plasma albumin roosevelt urement (mass/volume)Ordered By: Josy Elias on 12-07-2024 Albumin [Mass/Vol] 2.6 g/dL Low 3.5-5.0 [facility] Serum or plasma albumin/glob ulin mass ratioOrdered By: Josy Elias on 12-07-2024 Albumin/Globulin [Mass ratio] 0.9 {ratio} 0.9-2.4 [facility] Serum or plasma alkaline kendrick sphatase measurementOrdered By: Josy Elias on 12-07-2024 ALP [Catalytic activity/Vol] 241 U/L High 40-129 [facility] Serum or plasma calcium roosevelt urement (mass/volume)Ordered By: Josy Elias on 12-07-2024 Calcium [Mass/Vol] 8.2 mg/dL 7.6-11.0 [facility] Serum or plasma urea nitroge n measurement (mass/volume)Ordered By: Josy Elias on 12-07-2024 Urea nitrogen [Mass/Vol] 18 mg/dL 4-19 [facility] Sodium levelOrdered By: Terrance Elias on 12-07-2024 Sodium [Moles/Vol] 136 mmol/L 133-145 [facility] Total proteinOrdered By: Chinedu Elias on 12-07-2024 Protein [Mass/Vol] 5.5 g/dL Low 5.9-8.4 [facility] White blood cell (WBC) count Ordered By: Josy Elias on 12-07-2024 WBC (Bld) [#/Vol] 9.3 10*3/uL 4.4-11.0 [facility] Absolute lymphocyte countOrd ered By: Hill Acuña on 12-02-2024 Lymphocytes Auto (Unsp spec) [#/Vol] 0.92 10*3/uL 0.83-4.51 [facility] Anion gap in Serum or Plasma Ordered By: Hill Acuña on 12-02-2024 Anion gap [Moles/Vol] 7 mmol/L 5-15 [facility] Automated lymphocyte count a s percentage of total leukocytesOrdered By: Hill Acuña on 12-02-2024 Lymphocytes/100 WBC Auto (Unsp spec) 15.7 % Low 19-41 [facility] BUN/creatinine ratioOrdered By: Hill Acuña on 12-02-2024 Urea nitrogen/Creatinine [Mass ratio] 8.1 mg/mg Low 10-20 [facility] Basophil percentageOrdered B y: Hill Acuña on 12-02-2024 Basophils/100 WBC (Bld) 0.5 % 0-1 [facility] Bilirubin, totalOrdered By: Hill Acuña on 12-02-2024 Bilirubin [Mass/Vol] 1.07 mg/dL 0.00-1.30 [facility] [place] Carbon dioxide, total [Moles /volume] in Central venous bloodOrdered By: Hill Acuña on 12-02-2024 CO2 [Moles/Vol] 21.0 mmol/L 21.0-32.0 [facility] Chloride assayOrdered By: Kvng Acuña on 12-02-2024 Chloride [Moles/Vol] 104 mmol/L 98-108 [facility] [place] Eosinophil percentageOrdered By: Hill Acuña on 12-02-2024 Eosinophils/100 WBC (Bld) 3.6 % 0-5 [facility] Erythrocyte distribution wid th ratioOrdered By: Hill Acuña on 12-02-2024 Erythrocyte distribution width (RBC) [Ratio] 16.2 % High 11.6-14.6 [facility] Erythrocyte distribution wid th standard deviationOrdered By: Hill Acuña on 12-02-2024 Erythrocyte distribution width (RBC) [Ratio] 53.0 fl High 35.1-43.9 [facility] Glomerular filtration rate ( GFR) estimation/1.73 sq m using serum, plasma, or whole bOrdered By: Hill Acuña on 12-02-2024 GFR/1.73 sq M.predicted among non-blacks MDRD (S/P/Bld) [Vol rate/Area] 98 mL/min/{1.73_m2} >60 [facility] deOrdered By: Hill Acuña on 12-02-2024 Glucose [Mass/Vol] 259 mg/dL High 74-106 [facility] Hematocrit Auto (Bld) [Volum e fraction]Ordered By: Hill Acuña on 12-02-2024 Hematocrit (Bld) [Volume fraction] 21.9 % Low 40-54 [facility] Hemoglobin measurementOrdere d By: Hill Acuña on 12-02-2024 Hemoglobin (Bld) [Mass/Vol] 7.2 g/dL Low 13.0-16.5 [facility] Immature granulocytes/100 WB C Auto (Bld)Ordered By: Hill Acuña on 12-02-2024 Immature granulocytes/100 WBC (Bld) 0.500 % 0.0-0.9 [facility] MCV (mean corpuscular volume ) determinationOrdered By: Hill Acuña on 12-02-2024 MCV (RBC) [Entitic vol] 89.8 fL 80-94 [facility] Magnesium measurement (mass/ volume)Ordered By: Hill Acuña on 12-02-2024 Magnesium (Unsp spec) [Mass/Vol] 1.6 mg/dL 1.5-2.2 [facility] Mean corpuscular hemoglobin (MCH) determinationOrdered By: Hill Acuña on 12-02-2024 MCH (RBC) [Entitic mass] 29.5 pg 27.0-32.0 [facility] Monocyte percentageOrdered B y: Hill Acuña on 12-02-2024 Monocytes/100 WBC (Bld) 13.3 % High 0-10 [facility] Neutrophil percentageOrdered By: Hill Acuña on 12-02-2024 Neutrophils/100 WBC (Bld) 66.4 % 47-70 [facility] No Panel InformationOrdered By: Hill Acuña on 12-02-2024 58 U/L High <38 [facility] Platelet countOrdered By: Kvng Acuña on 12-02-2024 Platelets (Bld) [#/Vol] 100 10*3/uL Low 150-450 [facility] Potassium measurement (mass/ volume)Ordered By: Hill Acuña on 12-02-2024 Potassium (Unsp spec) [Mass/Vol] 3.8 mmol/L 3.3-5.1 [facility] RBC Auto (Bld) [#/Vol]Ordere d By: Hill Acuña on 12-02-2024 RBC (Bld) [#/Vol] 2.44 10*6/uL Low 4.6-6.2 [facility] Serum creatinine measurement (mass/volume)Ordered By: Hill Acuña on 12-02-2024 Creatinine [Mass/Vol] 0.90 mg/dL 0.70-1.20 [facility] Serum globulin measurementOr dered By: Hill Acuña on 12-02-2024 Globulin (S) [Mass/Vol] 2.6 g/dL 2.2-4.2 [facility] Serum glucose measurement (m ass/volume)Ordered By: Hill Acuña on 12-02-2024 Glucose [Mass/Vol] 221 mg/dL High 70-99 [facility] Serum or plasma alanine thomas otransferase (ALT) measurementOrdered By: Hill Acuña on 12-02-2024 ALT [Catalytic activity/Vol] 33 U/L <47 [facility] Serum or plasma albumin roosevelt urement (mass/volume)Ordered By: Hill Acuña on 12-02-2024 Albumin [Mass/Vol] 2.5 g/dL Low 3.5-5.0 [facility] Serum or plasma albumin/glob ulin mass ratioOrdered By: Hill Acuña on 12-02-2024 Albumin/Globulin [Mass ratio] 1.0 {ratio} 0.9-2.4 [facility] Serum or plasma alkaline kendrick sphatase measurementOrdered By: Hill Acuña on 12-02-2024 ALP [Catalytic activity/Vol] 219 U/L High 40-129 [facility] Serum or plasma calcium roosevelt urement (mass/volume)Ordered By: Hill Acuña on 12-02-2024 Calcium [Mass/Vol] 7.8 mg/dL 7.6-11.0 [facility] Serum or plasma urea nitroge n measurement (mass/volume)Ordered By: Hill Acuña on 12-02-2024 Urea nitrogen [Mass/Vol] 7 mg/dL 4-19 [facility] Sodium levelOrdered By: Paulino Acuña on 12-02-2024 Sodium [Moles/Vol] 132 mmol/L Low 133-145 [facility] Total proteinOrdered By: Hugo Acuña on 12-02-2024 Protein [Mass/Vol] 5.1 g/dL Low 5.9-8.4 [facility] Trough vancomycin levelOrder ed By: Maria Guadalupe Shore on 12-02-2024 Vancomycin trough [Mass/Vol] 19.6 ug/mL High 5.0-15.0 [facility] White blood cell (WBC) count Ordered By: Hill Acuña on 12-02-2024 WBC (Bld) [#/Vol] 5.9 10*3/uL 4.4-11.0 [facility] Platelet estimateOrdered By: Hill Acuña on 11-30-2024 Platelets LM Ql (Bld) MOD DEC ADEQ [facility] Serum or plasma vancomycin m easurement (mass/volume)Ordered By: Kathie Powers on 11-30-2024 Vancomycin [Mass/Vol] 17.7 ug/mL High 0.0-15.0 [facility] Prothrombin timeOrdered By: Kathie Powers on 11-29-2024 PT Coag (PPP) [Time] 21.1 s High 11.7-14.9 [facility] [place] Bilirubin Test strip Ql (U)O rdered By: Rachel Joiner on 11-28-2024 Bilirubin Ql (U) Negative Negative [facility] Bilirubin directOrdered By: Rachel Joiner on 11-28-2024 Bilirubin.direct [Mass/Vol] 0.72 mg/dL High 0.00-0.30 [facility] Ketones Test strip Ql (U)Ord ered By: Rachel Joiner on 11-28-2024 Ketones Ql (U) 5 mg/dl High Negative [facility] Mucus LM Ql (Urine sed)Order ed By: Rachel Joiner on 11-28-2024 Mucus Ql (Urine sed) 0 SEEN /hpf [facility] Nitrite Test strip Ql (U)Ord ered By: Rachel Joiner on 11-28-2024 Nitrite Ql (U) Positive High Negative [facility] Protein Test strip Ql (U)Ord ered By: Rachel Joiner on 11-28-2024 Protein Ql (U) 100 mg/dl High Negative [facility] Squamous epithelial cells de tection in urine sediment by light microscopyOrdered By: Rachel Joiner on 11-28-2024 Epithelial cells.squamous LM Ql (Urine sed) 0-5 SEEN /hpf 0-5 [facility] Urine clarityOrdered By: Shi Joiner on 11-28-2024 Clarity (U) Cloudy Clear [facility] Urine color determinationOrd ered By: Rachel Joiner on 11-28-2024 Color (U) Lexis Yellow [facility] Urine cultureOrdered By: Tyree Powers on 11-28-2024 Bacteria identified Cx Nom (U) ESBL Klebsiella pneumoniae pne Abnormal [facility] Urine glucose detectionOrder ed By: Rachel Joiner on 11-28-2024 Glucose Ql (U) Normal mg/dl Normal [facility] Urine leukocyte esterase det ection by dipstickOrdered By: Rachel Joiner on 11-28-2024 Leukocyte esterase Test strip Ql (U) 500 /ul High Negative [facility] Urine pHOrdered By: Rachel silva on 11-28-2024 pH (U) 6.5 [pH] 5.0 - 8.0 [facility] Urine sediment bacteria coun t by microscopy (number/high power field)Ordered By: Rachel Joiner on 11-28-2024 Bacteria LM.HPF (Urine sed) [#/Area] 1 /[HPF] None Seen [facility] Urine specific gravity measu rementOrdered By: Rachel Joiner on 11-28-2024 Specific gravity (U) [Rel density] 1.010 1.002-1.030 [facility] Urine urobilinogen measureme ntOrdered By: Rachel Joiner on 11-28-2024 Urobilinogen Ql (U) Normal mg/dl Normal [facility] Venous blood ammonia measure mentOrdered By: Rachel Joiner on 11-28-2024 Ammonia (P) [Moles/Vol] 68.4 umol/L High 16-60 [facility] White blood cell countOrdere d By: Rachel Joiner on 11-28-2024 White blood cell count 50-100 SEEN /hpf 0-5 [facility] Absolute lymphocyte countOrd ered By: Anurag Irene on 11-25-2024 Lymphocytes Auto (Unsp spec) [#/Vol] 0.92 10*3/uL 0.83-4.51 [facility] Anion gap in Serum or Plasma Ordered By: Anurag Irene on 11-25-2024 Anion gap [Moles/Vol] 8 mmol/L 5-15 [facility] Automated lymphocyte count a s percentage of total leukocytesOrdered By: Anurag Irene on 11-25-2024 Lymphocytes/100 WBC Auto (Unsp spec) 16.7 % Low 19-41 [facility] BUN/creatinine ratioOrdered By: Anurag Irene on 11-25-2024 Urea nitrogen/Creatinine [Mass ratio] 9.2 mg/mg Low 10-20 [facility] Basophil percentageOrdered B y: Anurag Irene on 11-25-2024 Basophils/100 WBC (Bld) 0.4 % 0-1 [facility] Bilirubin, totalOrdered By: Anurag Irene on 11-25-2024 Bilirubin [Mass/Vol] 1.07 mg/dL 0.00-1.30 [facility] [place] Carbon dioxide, total [Moles /volume] in Central venous bloodOrdered By: Anurag Irene on 11-25-2024 CO2 [Moles/Vol] 19.3 mmol/L Low 21.0-32.0 [facility] Chloride assayOrdered By: Francois Irene on 11-25-2024 Chloride [Moles/Vol] 108 mmol/L 98-108 [facility] [place] Eosinophil percentageOrdered By: Anurag Irene on 11-25-2024 Eosinophils/100 WBC (Bld) 4.2 % 0-5 [facility] Erythrocyte distribution wid th ratioOrdered By: Anurag Irene on 11-25-2024 Erythrocyte distribution width (RBC) [Ratio] 15.8 % High 11.6-14.6 [facility] Erythrocyte distribution wid th standard deviationOrdered By: Anurag Irene on 11-25-2024 Erythrocyte distribution width (RBC) [Ratio] 52.9 fl High 35.1-43.9 [facility] Glomerular filtration rate ( GFR) estimation/1.73 sq m using serum, plasma, or whole bOrdered By: Anurag Irene on 11-25-2024 GFR/1.73 sq M.predicted among non-blacks MDRD (S/P/Bld) [Vol rate/Area] 100 mL/min/{1.73_m2} >60 [facility] Glucose measurement at bedsi deOrdered By: Anurag Irene on 11-25-2024 Glucose [Mass/Vol] 222 mg/dL High 74-106 [facility] Hematocrit Auto (Bld) [Volum e fraction]Ordered By: Anurag Irene on 11-25-2024 Hematocrit (Bld) [Volume fraction] 21.5 % Low 40-54 [facility] Hemoglobin measurementOrdere d By: Anurag Irene on 11-25-2024 Hemoglobin (Bld) [Mass/Vol] 7.0 g/dL Low 13.0-16.5 [facility] Immature granulocytes/100 WB C Auto (Bld)Ordered By: Anurag Irene on 11-25-2024 Immature granulocytes/100 WBC (Bld) 0.400 % 0.0-0.9 [facility] MCV (mean corpuscular volume ) determinationOrdered By: Anurag Irene on 11-25-2024 MCV (RBC) [Entitic vol] 93.1 fL 80-94 [facility] Mean corpuscular hemoglobin (MCH) determinationOrdered By: Anurag Irene on 11-25-2024 MCH (RBC) [Entitic mass] 30.3 pg 27.0-32.0 [facility] Monocyte percentageOrdered B y: Anurag Irene on 11-25-2024 Monocytes/100 WBC (Bld) 12.7 % High 0-10 [facility] Neutrophil percentageOrdered By: Anurag Irene on 11-25-2024 Neutrophils/100 WBC (Bld) 65.6 % 47-70 [facility] No Panel InformationOrdered By: Anurag Irene on 11-25-2024 60 U/L High <38 [facility] Platelet countOrdered By: Francois Irene on 11-25-2024 Platelets (Bld) [#/Vol] 82 10*3/uL Low 150-450 [facility] Potassium measurement (mass/ volume)Ordered By: Anurag Irene on 11-25-2024 Potassium (Unsp spec) [Mass/Vol] 4.2 mmol/L 3.3-5.1 [facility] RBC Auto (Bld) [#/Vol]Ordere d By: Anurag Irene on 11-25-2024 RBC (Bld) [#/Vol] 2.31 10*6/uL Low 4.6-6.2 [facility] Serum creatinine measurement (mass/volume)Ordered By: Anurag Irene on 11-25-2024 Creatinine [Mass/Vol] 0.86 mg/dL 0.70-1.20 [facility] Serum globulin measurementOr dered By: Anurag Irene on 11-25-2024 Globulin (S) [Mass/Vol] 2.2 g/dL 2.2-4.2 [facility] Serum glucose measurement (m ass/volume)Ordered By: Anurag Irene on 11-25-2024 Glucose [Mass/Vol] 179 mg/dL High 70-99 [facility] Serum or plasma alanine thomas otransferase (ALT) measurementOrdered By: Anurag Irene on 11-25-2024 ALT [Catalytic activity/Vol] 41 U/L <47 [facility] Serum or plasma albumin roosevelt urement (mass/volume)Ordered By: Anurag Irene on 11-25-2024 Albumin [Mass/Vol] 2.7 g/dL Low 3.5-5.0 [facility] Serum or plasma albumin/glob ulin mass ratioOrdered By: Anurag Irene on 11-25-2024 Albumin/Globulin [Mass ratio] 1.2 {ratio} 0.9-2.4 [facility] Serum or plasma alkaline kendrick sphatase measurementOrdered By: Anurag Irene on 11-25-2024 ALP [Catalytic activity/Vol] 168 U/L High 40-129 [facility] Serum or plasma calcium roosevelt urement (mass/volume)Ordered By: Anurag Irene on 11-25-2024 Calcium [Mass/Vol] 8.3 mg/dL 7.6-11.0 [facility] Serum or plasma urea nitroge n measurement (mass/volume)Ordered By: Anurag Irene on 11-25-2024 Urea nitrogen [Mass/Vol] 8 mg/dL 4-19 [facility] Sodium levelOrdered By: Marni Irene on 11-25-2024 Sodium [Moles/Vol] 135 mmol/L 133-145 [facility] Total proteinOrdered By: [place] Irene on 11-25-2024 Protein [Mass/Vol] 4.9 g/dL Low 5.9-8.4 [facility] White blood cell (WBC) count Ordered By: Anurag Irene on 11-25-2024 WBC (Bld) [#/Vol] 5.5 10*3/uL 4.4-11.0 [facility] Blood manual differential co mment interpretation (narrative result)Ordered By: Anurag Irene on 11-24-2024 Manual differential comment Marco Antonio (Bld) [Interp] SCANNED [facility] Platelet estimateOrdered By: Anurag Irene on 11-24-2024 Platelets LM Ql (Bld) MOD DEC ADEQ [facility] Prothrombin timeOrdered By: Anurag Irene on 11-24-2024 PT Coag (PPP) [Time] 22.6 s High 11.7-14.9 [facility] [place] Bilirubin directOrdered By: Anurag Irene on 11-22-2024 Bilirubin.direct [Mass/Vol] 0.73 mg/dL High 0.00-0.30 [facility] ALP [Catalytic activity/Vol] Ordered By: Herberth Carlson on 11-21-2024 Serum or plasma alkaline phosphatase measurement 245 U/L High 40-129 [facility] ALT [Catalytic activity/Vol] Ordered By: Herberth Carlson on 11-21-2024 Serum or plasma alanine aminotransferase (ALT) measurement 61 U/L High <47 [facility] Absolute neutrophil countOrd ered By: Herberth Carlson on 11-21-2024 Absolute neutrophil count 6.5 X10^3/uL 2.0-7.7 [facility] Albumin [Mass/Vol]Ordered By : Herberth Carlson on 11-21-2024 Serum or plasma albumin measurement (mass/volume) 2.5 g/dL Low 3.5-5.0 [facility] Albumin/Globulin [Mass ratio ]Ordered By: Herberth Carlson on 11-21-2024 Serum or plasma albumin/globulin mass ratio 0.9 RATIO 0.9-2.4 [facility] Anion gap [Moles/Vol]Ordered By: Herberth Carlson on 11-21-2024 Anion gap in Serum or Plasma 11 5-15 [facility] BUN/creatinine ratioOrdered By: Herberth Carlson on 11-21-2024 BUN/creatinine ratio 19.1 RATIO 10-20 [facility] [place] Bacteria LM.HPF (Urine sed) [#/Area]Ordered By: Herberth Carlson on 11-21-2024 Urine sediment bacteria count by microscopy (number/high power field) RARE /hpf None Seen [facility] Basophil percentageOrdered B y: Herberth Carlson on 11-21-2024 Basophil percentage 0.2 % 0-1 [facility] Bilirubin Test strip Ql (U)O rdered By: Herberth Carlson on 11-21-2024 Bilirubin Ql (U) Negative Negative [facility] Bilirubin, totalOrdered By: Herberth Carlson on 11-21-2024 Bilirubin, total 1.33 mg/dL High 0.00-1.30 [facility] Calcium [Mass/Vol]Ordered By : Herberth Carlson on 11-21-2024 Serum or plasma calcium measurement (mass/volume) 8.7 mg/dL 7.6-11.0 [facility] Carbon dioxide, total [Moles /volume] in Central venous bloodOrdered By: Herberth Carlson on 11-21-2024 Carbon dioxide, total [Moles/volume] in Central venous blood 17.5 mmol/L Low 21.0-32.0 [facility] Chloride assayOrdered By: Kaylyn Carlson on 11-21-2024 Chloride assay 103 mmol/L 98-108 [facility] Clarity (U)Ordered By: Ashish Carlson on 11-21-2024 Urine clarity Sl Cldy Clear [facility] Color (U)Ordered By: Herberth Carlson on 11-21-2024 Urine color determination Yellow Yellow [facility] Creatinine [Mass/Vol]Ordered By: Herberth Carlson on 11-21-2024 Serum creatinine measurement (mass/volume) 1.49 mg/dL High 0.70-1.20 [facility] Eosinophil percentageOrdered By: Herberth Carlson on 11-21-2024 Eosinophil percentage 7.2 % High 0-5 [facility] Erythrocyte distribution wid th (RBC) [Ratio]Ordered By: Herberth Carlson on 11-21-2024 Erythrocyte distribution width ratio 16.8 % High 11.6-14.6 [facility] Erythrocyte distribution width standard deviation 57.1 fl High 35.1-43.9 [facility] Estimation of creatinine [place] aranceOrdered By: Herberth Carlson on 11-21-2024 Estimation of creatinine clearance 64.65 ml/min 50-250 [facility] GFR/1.73 sq M.predicted niki g non-blacks MDRD (S/P/Bld) [Vol rate/Area]Ordered By: Herberth Carlson on 11-21-2024 Glomerular filtration rate (GFR) estimation/1.73 sq m using serum, plasma, or whole b 54 Low >60 [facility] Glucose [Mass/Vol]Ordered By : Herberth Carlson on 11-21-2024 Serum glucose measurement (mass/volume) 188 mg/dL High 70-99 [facility] Hematocrit Auto (Bld) [Volum e fraction]Ordered By: Herberth Carlson on 11-21-2024 Automated blood hematocrit (percentage) 24.6 % Low 40-54 [facility] Hemoglobin measurementOrdere d By: Herberth Carlson on 11-21-2024 Hemoglobin measurement 8.3 g/dL Low 13.0-16.5 [facility] Immature granulocytes/100 WB C Auto (Bld)Ordered By: Herberth Carlson on 11-21-2024 Automated immature granulocyte percentage 0.800 % 0.0-0.9 [facility] International normalized rat io (INR) calculationOrdered By: Herberth Carlson 11-21-2024 International normalized ratio (INR) calculation 2.6 [facility] Ketones Test strip Ql (U)Ord ered By: Herberth Carlson on 11-21-2024 Ketones Ql (U) Negative Negative [facility] Lactic acid measurementOrder ed By: Herberth Carlson on 11-21-2024 Lactic acid measurement 2.7 mmol/L High 0.0-2.0 [facility] Leukocyte esterase Test stri p Ql (U)Ordered By: Herberth Carlson on 11-21-2024 Urine leukocyte esterase detection by dipstick 500 /ul High Negative [facility] Lymphocytes Auto (Unsp spec) [#/Vol]Ordered By: Herberth Carlson on 11-21-2024 Absolute lymphocyte count 1.33 X10^3/uL 0.83-4.51 [facility] Lymphocytes/100 WBC Auto (Un sp spec)Ordered By: Herberth Carlson on 11-21-2024 Automated lymphocyte count as percentage of total leukocytes 13.9 % Low 19-41 [facility] MCV (RBC) [Entitic vol]Order ed By: Herberth Carlson on 11-21-2024 MCV (mean corpuscular volume) determination 93.2 fL 80-94 [facility] Mean corpuscular hemoglobin (MCH) determinationOrdered By: Herberth Carlson on 11-21-2024 Mean corpuscular hemoglobin (MCH) determination 31.4 pg 27.0-32.0 [facility] Mean corpuscular hemoglobin concentration (MCHC) determinationOrdered By: Herberth Carlson on 11-21-2024 Mean corpuscular hemoglobin concentration (MCHC) determination 33.7 g/dL 32-36 [facility] Mean platelet volume determi nationOrdered By: Herberth Carlson on 11-21-2024 Mean platelet volume determination 11.6 fl 6.2-12.0 [facility] Monocyte percentageOrdered B y: Herberth Carlson on 11-21-2024 Monocyte percentage 9.2 % 0-10 [facility] Mucus LM Ql (Urine sed)Order ed By: Herberth Carlson on 11-21-2024 Mucus Ql (Urine sed) 0 SEEN /hpf [facility] Neutrophil percentageOrdered By: Herberth Carlson on 11-21-2024 Neutrophil percentage 68.7 % 47-70 [facility] Nitrite Test strip Ql (U)Ord ered By: Herberth Carlson on 11-21-2024 Nitrite Ql (U) Negative Negative [facility] No Panel InformationOrdered By: Herberth Carlson on 11-21-2024 112 U/L High <38 [facility] Nucleated red blood cell per centageOrdered By: Herberth Carlson on 11-21-2024 Nucleated red blood cell percentage 0 % 0-5 [facility] Platelet countOrdered By: Kaylyn Carlson on 11-21-2024 Platelet count 167 K/mm3 150-450 [facility] [facility] Potassium (Unsp spec) [Mass/ Vol]Ordered By: Herberth Carlson on 11-21-2024 Potassium measurement (mass/volume) 5.0 mmol/L 3.3-5.1 [facility] Protein Test strip Ql (U)Ord ered By: Herberth Carlson on 11-21-2024 Protein Ql (U) 500 mg/dl High Negative [facility] Urine protein assay by test strip, semi-quantitative 500 mg/dl High Negative [facility] Prothrombin timeOrdered By: Herberth Carlson on 11-21-2024 Prothrombin time 28.2 SECONDS High 11.7-14.9 [facility] RBC Auto (Bld) [#/Vol]Ordere d By: Herberth Carlson on 11-21-2024 Automated blood erythrocyte count 2.64 M/mm3 Low 4.6-6.2 [facility] Serum globulin measurementOr dered By: Herberth Carlson on 11-21-2024 Serum globulin measurement 2.7 g/dL 2.2-4.2 [facility] Sodium levelOrdered By: Norman Carlson on 11-21-2024 Sodium level 132 mmol/L Low 133-145 [facility] Specific gravity (U) [Rel de nsity]Ordered By: Herberth Carlson on 11-21-2024 Urine specific gravity measurement 1.015 1.002-1.030 [facility] Squamous epithelial cells de tection in urine sediment by light microscopyOrdered By: Herberth Carlson 11-21-2024 Epithelial cells.squamous LM Ql (Urine sed) 0 SEEN /hpf 0-5 [facility] Squamous epithelial cells detection in urine sediment by light microscopy 0 SEEN /hpf [facility] Total proteinOrdered By: Digna Carlson on 11-21-2024 Total protein 5.2 g/dL Low 5.9-8.4 [facility] Urea nitrogen [Mass/Vol]Orde red By: Herberth Carlson on 11-21-2024 Serum or plasma urea nitrogen measurement (mass/volume) 28 mg/dL High 4-19 [facility] Urine blood detectionOrdered By: Herberth Carlson on 11-21-2024 Urine blood detection 250 /ul High Negative [facility] Urine clarityOrdered By: Digna Carlson on 11-21-2024 Clarity (U) Sl Cldy Clear [facility] Urine color determinationOrd ered By: Herberth Carlson on 11-21-2024 Color (U) Yellow Yellow [facility] Urine cultureOrdered By: Digna Carlson on 11-21-2024 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 [facility] Bacteria identified Cx Nom (U) GPC Poss Enterococcus sp Abnormal [facility] Bacteria identified Cx Nom (U) Positive Abnormal [facility] Urine glucose detectionOrder ed By: Herberth Carlson on 11-21-2024 Glucose Ql (U) Normal mg/dl Normal [facility] Urine glucose detection Normal mg/dl Normal [facility] Urine leukocyte esterase det ection by dipstickOrdered By: Herberth Carlson on 11-21-2024 Leukocyte esterase Test strip Ql (U) 500 /ul High Negative [facility] Urine pHOrdered By: Herberth Carlson on 11-21-2024 pH (U) 6.0 [pH] 5.0 - 8.0 [facility] Urine sediment bacteria coun t by microscopy (number/high power field)Ordered By: Herberth Carlson on 11-21-2024 Bacteria LM.HPF (Urine sed) [#/Area] RARE /hpf None Seen [facility] Urine specific gravity measu rementOrdered By: Herberth Carlson on 11-21-2024 Specific gravity (U) [Rel density] 1.015 1.002-1.030 [facility] Urine total bilirubin detect ion by test stripOrdered By: Herberth Carlson on 11-21-2024 Urine total bilirubin detection by test strip Negative Negative [facility] Urine urobilinogen measureme ntOrdered By: Herberth Carlson on 11-21-2024 Urobilinogen Ql (U) Normal mg/dl Normal [facility] Venous blood ammonia measure mentOrdered By: Herberth Carlson on 11-21-2024 Ammonia (P) [Moles/Vol] 17.9 umol/L 16- [facility] Venous blood ammonia measurement 17.9 umol/L [facility] White blood cell (WBC) count Ordered By: Herberth Carlson on 11-21-2024 White blood cell (WBC) count 9.5 K/mm3 4.4-11.0 [facility] White blood cell countOrdere d By: Herberth Carlson on 11-21-2024 White blood cell count >100 SEEN /hpf 0-5 [facility] White blood cell count >100 SEEN /hpf 0-5 [facility] pH (U)Ordered By: Herberth henao on 11-21-2024 Urine pH 6.0 5.0 - 8.0 [facility] Bacteria Ur Culton Bacteria identified Cx Nom (U) CULTURE, URINE: Mixed microbiota, including predominantly: ORGANISM ID: 1 >=100,000 CFU/ml Mary glabrata No susceptibility testing done. Normal [facility] Comment on above: Performed By: #### 6 30-4 ####[facility] [id number] [address] [address] [place] Bacteria identified Cx Nom (U) Normal [facility] Comment on above: Performed By: #### 2 4356-8, 630-4 ####[facility] [id number] [address] [address] [place] Basic metabolic 2000 panelon 11-18-2024 Anion gap [Moles/Vol] 8 mmol/L Normal 8-15 [facility] Comment on above: Order Comment: Speci men Type: BLOOD SPECIMENOrdering Facility: [facility] Address: [address] [place] [address] Performed By: #### 2 4321-2, 90933-4, 2777-1 ####[facility] [id number] [address] [address] [place] Calcium [Mass/Vol] 8.3 mg/dL Low 8.5-10.2 [facility] Comment on above: Order Comment: Speci men Type: BLOOD SPECIMENOrdering Facility: [facility] Address: [address] [place] [address] Performed By: #### 2 4321-2, 25328-7, 2777-1 ####[facility] [id number] [facility] [address] [address] [place] Chloride [Moles/Vol] 102 mmol/L Normal 98-107 [facility] Comment on above: Order Comment: Speci men Type: BLOOD SPECIMENOrdering Facility: [facility] Address: [address] [place] [address] Performed By: #### 2 4321-2, 53540-8, 2777-1 ####[facility] [id number] [place] [address] [place] CO2 [Moles/Vol] 19 mmol/L Low 22-30 [facility] Comment on above: Order Comment: Speci men Type: BLOOD SPECIMENOrdering Facility: [facility] Address: [address] [place] [address] Performed By: #### 2 4321-2, 51177-7, 2777-1 ####[facility] [id number] [place] [address] [place] Creatinine [Mass/Vol] 0.95 mg/dL Normal 0.73-1.22 [facility] Comment on above: Order Comment: Speci men Type: BLOOD SPECIMENOrdering Facility: [facility] Address: [address] [place] [address] Performed By: #### 2 4321-2, 31355-1, 2777-1 ####[facility] [id number] [place] [address] [place] [facility] Creatinine and Glomerular filtration rate.predicted panel (S/P/Bld) 93 mL/min/1.73m??? Normal >=60 [facility] Comment on above: Order Comment: Speci men Type: BLOOD SPECIMENOrdering Facility: [facility] Address: [address] [place] [address] Result Comment: Patric mated Glomerular Filtration Rate [...] actual GFR. Performed By: #### 2 1-2, 31966-5, 2776-08 ####[facility] [id number] [facility] [address] [address] [place] Glucose [Mass/Vol] 248 mg/dL High 74-99 [facility] Comment on above: Order Comment: Spechelder men Type: BLOOD SPECIMENOrdering Facility: [facility] Address: [address] [place] [address] Result Comment: The [place] Diabetes Association (ADA) provides guidance for cutoff [...] Standards of Medical Care in Diabetes 2016, [employer] Diabetes [employer]. Diabetes Care. 2016.39(Suppl 1). Performed By: #### 2 1-2, 52572-1, 2776-08 ####[facility] [id number] [facility] [address] [address] [place] Potassium [Moles/Vol] 4.4 mmol/L Normal 3.7-5.1 [facility] Comment on above: Order Comment: Ezekiel men Type: BLOOD SPECIMENOrdering Facility: [facility] Address: [address] [place] [address] Performed By: #### 2 4321-2, 10463-9, 2776-08 ####[facility] [id number] [facility] [address] [address] [place] Sodium [Moles/Vol] 129 mmol/L Low 136-144 [facility] Comment on above: Order Comment: Speci men Type: BLOOD SPECIMENOrdering Facility: [facility] Address: [address] [place] [address] Performed By: #### 2 4321-2, 09933-2, 2777- ####[facility] [id number] [address] [place] [address] [place] Urea nitrogen [Mass/Vol] 16 mg/dL Normal 9-24 [facility] Comment on above: Order Comment: Speci men Type: BLOOD SPECIMENOrdering Facility: [facility] Address: [address] [place] [address] Performed By: #### 2 4321-2, 34506-0, 27702-01 ####[facility] [id number] [place] [address] [place] CASE MANAGEMon 11-18-2024 CASE MANAGEM Normal [facility] CBC W Auto Differential pane l (Bld)on 11-18-2024 Basophils (Bld) [#/Vol] 10*3/uL Normal <0.11 [facility] Comment on above: Order Comment: Speci men Type: BLOOD SPECIMENOrdering Facility: [facility] Address: [address] [place] [address] Performed By: #### 5 7021-8 ####[facility] [id number] [place] [address] [place] Basophils/100 WBC (Bld) 0.0 % Normal C [facility] Comment on above: Order Comment: Speci men Type: BLOOD SPECIMENOrdering Facility: [facility] Address: [address] [place] [address] Performed By: #### 5 7021-8 ####[facility] [id number] [facility] [address] [address] [place] Differential cell count method Nom (Bld) Auto Normal [facility] Comment on above: Order Comment: Speci men Type: BLOOD SPECIMENOrdering Facility: [facility] Address: [address] [place] [address] Performed By: #### 5 7021-8 ####[facility] [id number] [place] [address] [place] Eosinophils (Bld) [#/Vol] 10*3/uL Normal <0.46 [facility] Comment on above: Order Comment: Speci men Type: BLOOD SPECIMENOrdering Facility: [facility] Address: [address] [place] [address] Performed By: #### 5 7021-8 ####[facility] [id number] [place] [address] [place] Eosinophils/100 WBC (Bld) 0.1 % Normal [facility] Comment on above: Order Comment: Speci men Type: BLOOD SPECIMENOrdering Facility: [facility] Address: [address] [place] [address] Performed By: #### 5 7021-8 ####[facility] [id number] [place] [address] [place] Erythrocyte distribution width (RBC) [Ratio] 16.7 % High 11.5-15.0 [facility] Comment on above: Order Comment: Speci men Type: BLOOD SPECIMENOrdering Facility: [facility] Address: [address] [place] [address] Performed By: #### 5 7021-8 ####[facility] [id number] [facility] [place] [address] [place] Hematocrit (Bld) [Volume fraction] 21.5 % Low 39.0-51.0 [facility] Comment on above: Order Comment: Speci men Type: BLOOD SPECIMENOrdering Facility: [facility] Address: [address] [place] [address] Performed By: #### 5 7021-8 ####[facility] [id number] [place] [address] [place] Hemoglobin (Bld) [Mass/Vol] 7.2 g/dL Low 13.0-17.0 [facility] Comment on above: Order Comment: Speci men Type: BLOOD SPECIMENOrdering Facility: [facility] Address: [address] [place] [address] Performed By: #### 5 7021-8 ####[facility] [id number] [place] [address] [place] Immature granulocytes (Bld) [#/Vol] 0.06 10*3/uL Normal <0.10 [facility] Comment on above: Order Comment: Speci men Type: BLOOD SPECIMENOrdering Facility: [facility] Address: [address] [place] [address] Performed By: #### 5 7021-8 ####[facility] [id number] [place] [address] [place] Immature granulocytes/100 WBC (Bld) 0.7 % Normal [facility] Comment on above: Order Comment: Speci men Type: BLOOD SPECIMENOrdering Facility: [facility] Address: [address] [place] [address] Performed By: #### 5 7021-8 ####[facility] [id number] [place] [address] [place] Lymphocytes (Bld) [#/Vol] 0.61 10*3/uL Low 1.00-4.00 [facility] Comment on above: Order Comment: Speci men Type: BLOOD SPECIMENOrdering Facility: [facility] Address: [address] [place] [address] Performed By: #### 5 7021-8 ####[facility] [id number] [place] [address] [place] Lymphocytes/100 WBC (Bld) 7.3 % Normal [facility] Comment on above: Order Comment: Speci men Type: BLOOD SPECIMENOrdering Facility: [facility] Address: [address] [place] [address] Performed By: #### 5 7021-8 ####[facility] [id number] [place] [address] [place] MCH (RBC) [Entitic mass] 30.9 pg Normal 26.0-34.0 [facility] Comment on above: Order Comment: Speci men Type: BLOOD SPECIMENOrdering Facility: [facility] Address: [address] [place] [address] Performed By: #### 5 7021-8 ####[facility] [id number] [place] [address] [place] MCHC (RBC) [Mass/Vol] 33.5 g/dL Normal 30.5-36.0 [facility] Comment on above: Order Comment: Speci men Type: BLOOD SPECIMENOrdering Facility: [facility] Address: [address] [place] [address] Performed By: #### 5 7021-8 ####[facility] [id number] [place] [address] [place] MCV (RBC) [Entitic vol] 92.3 fL Normal 80.0-100.0 C [facility] Comment on above: Order Comment: Speci men Type: BLOOD SPECIMENOrdering Facility: [facility] Address: [address] [place] [address] Performed By: #### 5 7021-8 ####[facility] [id number] [place] [address] [place] Monocytes (Bld) [#/Vol] 0.72 10*3/uL Normal <0.87 [facility] Comment on above: Order Comment: Speci men Type: BLOOD SPECIMENOrdering Facility: [facility] Address: [address] [place] [address] Performed By: #### 5 7021-8 ####[facility] [id number] [address] [address] [place] Monocytes/100 WBC (Bld) 8.7 % Normal [facility] Comment on above: Order Comment: Speci men Type: BLOOD SPECIMENOrdering Facility: [facility] Address: [address] [place] [address] Performed By: #### 5 7021-8 ####[facility] [id number] [place] [address] [place] Neutrophils (Bld) [#/Vol] 6.92 10*3/uL Normal 1.45-7.50 [facility] Comment on above: Order Comment: Speci men Type: BLOOD SPECIMENOrdering Facility: [facility] Address: [address] [place] [address] Performed By: #### 5 7021-8 ####[facility] [id number] [place] [address] [place] Neutrophils/100 WBC (Bld) 83.2 % Normal [facility] Comment on above: Order Comment: Speci men Type: BLOOD SPECIMENOrdering Facility: [facility] Address: [address] [place] [address] Performed By: #### 5 7021-8 ####[facility] [id number] [place] [address] [place] Nucleated RBC (Bld) [#/Vol] 10*3/uL Normal <0.01 [facility] Comment on above: Order Comment: Speci men Type: BLOOD SPECIMENOrdering Facility: [facility] Address: [address] [place] [address] Performed By: #### 5 7021-8 ####[facility] [id number] [place] [address] [place] Nucleated RBC/100 WBC (Bld) [Ratio] 0.0 /100 WBC Normal [facility] Comment on above: Order Comment: Speci men Type: BLOOD SPECIMENOrdering Facility: [facility] Address: [address] [place] [address] Performed By: #### 5 7021-8 ####[facility] [id number] [place] [address] [place] Platelet mean volume (Bld) [Entitic vol] 12.1 fL Normal 9.0-12.7 [facility] Comment on above: Order Comment: Speci men Type: BLOOD SPECIMENOrdering Facility: [facility] Address: [address] [place] [address] Performed By: #### 5 7021-8 ####[facility] [id number] [place] [address] [place] Platelets (Bld) [#/Vol] 76 10*3/uL Low 150-400 C [facility] Comment on above: Order Comment: Speci men Type: BLOOD SPECIMENOrdering Facility: [facility] Address: [address] [place] [address] Result Comment: No c lot detected. Performed By: #### 5 7021-8 ####[facility] [id number] [place] [address] [place] RBC (Bld) [#/Vol] 2.33 10*6/uL Low 4.20-6.00 [facility] Comment on above: Order Comment: Speci men Type: BLOOD SPECIMENOrdering Facility: [facility] Address: [address] [place] [address] Performed By: #### 5 7021-8 ####[facility] [id number] [place] [address] [place] WBC (Bld) [#/Vol] 8.32 10*3/uL Normal 3.70-11.00 [facility] Comment on above: Order Comment: Speci men Type: BLOOD SPECIMENOrdering Facility: [facility] Address: [address] [place] [address] Performed By: #### 5 7021-8 ####[facility] [id number] [place] [address] [place] CNCOon 11-18-2024 CNCO Letter Text Normal [facility] CNDSon 11-18-2024 CNDS Normal [facility] CNPNon 11-18-2024 CNPN Normal [facility] Fibrinogen PPP-mCncon 2024 Fibrinogen Coag (PPP) [Mass/Vol] 104 mg/dL Low 200-400 [facility] Comment on above: Order Comment: Speci men Type: BLOOD SPECIMENOrdering Facility: [facility] Address: [address] [place] [address] Performed By: #### 3 255-7, 93495-5 ####[facility] [id number] [place] [address] [place] Hepatic function 2000 panelo n 11-18-2024 Albumin [Mass/Vol] 2.6 g/dL Low 3.9-4.9 [facility] Comment on above: Order Comment: Speci men Type: BLOOD SPECIMENOrdering Facility: [facility] Address: [address] [place] [address] Performed By: #### 2 4321-2, 52970-9, 2777-1 ####[facility] [id number] [address], [place] [address] [place] ALP [Catalytic activity/Vol] 245 U/L High 38-113 [facility] Comment on above: Order Comment: Speci men Type: BLOOD SPECIMENOrdering Facility: [facility] Address: [address] [place] [address] Performed By: #### 2 4321-2, 36701-8, 2777-1 ####[facility] [id number] [facility] [address], [place] [address] [place] ALT [Catalytic activity/Vol] 31 U/L Normal 10-54 [facility] Comment on above: Order Comment: Speci men Type: BLOOD SPECIMENOrdering Facility: [facility] Address: [address] [place] [address] Performed By: #### 2 4321-2, 94249-9, 2776-08 ####[facility] [id number] [facility] [place] [address] [place] AST [Catalytic activity/Vol] 52 U/L High 14-40 [facility] Comment on above: Order Comment: Speci men Type: BLOOD SPECIMENOrdering Facility: [facility] Address: [address] [place] [address] Performed By: #### 2 4321-2, 25136-2, 2776-08 ####[facility] [id number] [facility] [place] [address] [place] Bilirubin [Mass/Vol] 1.2 mg/dL Normal 0.2-1.3 [facility] Comment on above: Order Comment: Speci men Type: BLOOD SPECIMENOrdering Facility: [facility] Address: [address] [place] [address] Performed By: #### 2 4321-2, 26248-9, 2776-08 ####[facility] [id number] [facility] [place] [address] [place] Bilirubin.conjugated [Mass/Vol] 0.7 mg/dL High <0.3 [facility] Comment on above: Order Comment: Speci men Type: BLOOD SPECIMENOrdering Facility: [facility] Address: [address] [place], [place] [address] Performed By: #### 2 4321-2, 31006-9, 2776-08 ####[facility] [id number] [facility] [address] [address] [place] Protein [Mass/Vol] 5.0 g/dL Low 6.3-8.0 [facility] Comment on above: Order Comment: Speci men Type: BLOOD SPECIMENOrdering Facility: [facility] Address: [address] [place] [address] Performed By: #### 2 4321-2, 22593-8, 2777-1 ####[facility] [id number] [place] [address] [place] NURSING PROGon 11-18-2024 NURSING PROG Normal [facility] PT panel Coag (PPP)on 2024 INR Coag (PPP) [Relative time] 2.0 {INR} High 0.9-1.3 [facility] Comment on above: Order Comment: Ezekiel ramirez Type: BLOOD SPECIMENOrdering Facility: [facility] Address: [address] [place] [address] Result Comment: Sarah min K Antagonist (VKA) Therapeutic Range: INR 2 to 3 (Target INR of 2.5)Note: For patients treated with VKA drugs, such as warfarin, the [place] [employer] 2012 Guideline recommends [...] al. Chest 2012, 141:7S-47SHector RA, et al. [facility] 2017, 70: 252-289 Performed By: #### 3 255-7, 20421-2 ####[facility] [id number] [place] [id number] [place] PT Coag (PPP) [Time] 20.9 s High 9.7-13.0 [facility] Comment on above: Order Comment: Ezekiel ramirez Type: BLOOD SPECIMENOrdering Facility: [facility] Address: [address] [place] [address] Performed By: #### 3 255-7, 21114-2 ####[facility] [id number] [place] [address] [place] Phosphate SerPl-mCncon 11-18 Phosphate [Mass/Vol] 2.4 mg/dL Low 2.7-4.8 [facility] Comment on above: Order Comment: Speci men Type: BLOOD SPECIMENOrdering Facility: [facility] Address: [address] [place] [address] Performed By: #### 2 4321-2, 00567-5, 2777-1 ####[facility] [id number] [place] [address] [place] TYPE + SCREENon 11-18-2024 ABO O Normal [facility] Comment on above: Order Comment: Speci men Type: BLOOD SPECIMENOrdering Facility: [facility] Address: [address] [place] [address] Performed By: #### T SCR ####CC [facility] BLOOD BANKCLIA [id number] [place] [address] [place] Rh Nom (Bld) Positive Normal [facility] Comment on above: Order Comment: Speci men Type: BLOOD SPECIMENOrdering Facility: [facility] Address: [address] [place] [address] Performed By: #### T SCR ####CC MA[facility] BLOOD BANKCLIA [id number] [place] [address] [place] TYPE AND SCREEN EXPIRATION 11/21/2024 23:59 Normal [facility] Comment on above: Order Comment: Speci men Type: BLOOD SPECIMENOrdering Facility: [facility] Address: [address] [place] [address] Performed By: #### T SCR ####CC MAIN BLOOD BANKCLIA [id number] [place] [address] [place] Urinalysis complete panel (U )on 11-18-2024 BACTERIA UL 1671.0 uL High Negative [facility] Comment on above: Order Comment: Speci men Type: URINE SPECIMENOrdering Facility: [facility] Address: [address] [place] [address] Performed By: #### 2 4356-8, 630-4 ####[facility] LABCLIA [id number] [place] [address] [place] Bilirubin Ql (U) 2+ Abnormal Negative [facility] Comment on above: Order Comment: Speci men Type: URINE SPECIMENOrdering Facility: [facility] Address: [address] [place] [address] Result Comment: Sugg est correlation with clinical findings and serum bilirubin if clinically indicated. Performed By: #### 2 4356-8, 630-4 ####[facility] LABCLIA [id number] [place] [address] [place] CALCIUM OXALATE CRYSTALS (UA) Few Abnormal None Seen [facility] Comment on above: Order Comment: Speci men Type: URINE SPECIMENOrdering Facility: [facility] Address: [address] [place] [address] Performed By: #### 2 4356-8, 630-4 ####[facility] LABCLIA [id number] [place] [id number] [place] Clarity (Unsp spec) Turbid Abnormal Clear [facility] Comment on above: Order Comment: Speci men Type: URINE SPECIMENOrdering Facility: [facility] Address: [address] [place] [address] Performed By: #### 2 4356-8, 630-4 ####[facility] LABCLIA [id number] [address], [facility] [place] Color (U) Red Abnormal Yellow [facility] Comment on above: Order Comment: Speci men Type: URINE SPECIMENOrdering Facility: [facility] Address: [address] [place] [address] Performed By: #### 2 4356-8, 630-4 ####[facility] LABCLIA [id number] [place] [address] [place] Epithelial cells LM.HPF (Urine sed) [#/Area] None Seen Normal [facility] Comment on above: Order Comment: Speci men Type: URINE SPECIMENOrdering Facility: [facility] Address: [address] [place] [address] Performed By: #### 2 4356-8, 630-4 ####[facility] LABCLIA [id number] [place] [address] [place] Glucose Test strip (U) [Mass/Vol] Negative Normal Negative [facility] Comment on above: Order Comment: Speci men Type: URINE SPECIMENOrdering Facility: [facility] Address: [address] [place] [address] Performed By: #### 2 4356-8, 630-4 ####[facility] LABCLIA [id number] [place] [address] [place] Hemoglobin Ql (U) 2+ Abnormal Negative [facility] Comment on above: Order Comment: Speci men Type: URINE SPECIMENOrdering Facility: [facility] Address: [address] [place] [address] Performed By: #### 2 4356-8, 630-4 ####[facility] LABCLIA [id number] [place] [address] [place] Hyaline casts (Urine sed) [#/Area] 0 /[LPF] Normal 0 /LPF [facility] Comment on above: Order Comment: Speci men Type: URINE SPECIMENOrdering Facility: [facility] Address: [address] [place] [address] Performed By: #### 2 4356-8, 630-4 ####[facility] LABCLIA [id number] [facility] [address] [place] [address] [place] Ketones Ql (U) Negative Normal Negative [facility] Comment on above: Order Comment: Speci men Type: URINE SPECIMENOrdering Facility: [facility] Address: [address] [place] [address] Performed By: #### 2 4356-8, 630-4 ####[facility] LABCLIA [id number] [address], [place] [address] [place] Leukocyte esterase Test strip Ql (U) 3+ Abnormal Negative [facility] Comment on above: Order Comment: Speci men Type: URINE SPECIMENOrdering Facility: [facility] Address: [address] [place] [address] Performed By: #### 2 4356-8, 630-4 ####[facility] LABCLIA [id number] [place] [address] [place] Nitrite Ql (U) Negative Normal Negative [facility] Comment on above: Order Comment: Speci men Type: URINE SPECIMENOrdering Facility: [facility] Address: [address] [place] [address] Result Comment: Resu lt rechecked. Performed By: #### 2 4356-8, 630-4 ####[facility] LABCLIA [id number] [address], [place] [address] [place] pH (U) 5.0 [pH] Normal <8.5 [facility] Comment on above: Order Comment: Speci men Type: URINE SPECIMENOrdering Facility: [facility] Address: [address] [place] [address] Performed By: #### 2 4356-8, 630-4 ####[facility] LABCLIA [id number] [address], [facility] [place] Protein (U) [Mass/Vol] 2+ Abnormal Negative Cl [facility] Comment on above: Order Comment: Speci men Type: URINE SPECIMENOrdering Facility: [facility] Address: [address] [place] [address] Performed By: #### 2 4356-8, 630-4 ####[facility] [id number] [place] [address] [place] RBC LM.HPF (Urine sed) [#/Area] /[HPF] Abnormal 0-2 /HPF [facility] Comment on above: Order Comment: Speci men Type: URINE SPECIMENOrdering Facility: [facility] Address: [address] [place] [address] Performed By: #### 2 4356-8, 630-4 ####[facility] [id number] [place] [address] [place] Specific gravity (U) [Rel density] 1.021 Normal 1.005-1.030 [facility] Comment on above: Order Comment: Speci men Type: URINE SPECIMENOrdering Facility: [facility] Address: [address] [place] [address] Performed By: #### 2 4356-8, 630-4 ####[facility] [id number] [place] [address] [place] Urobilinogen Ql (U) 0.2 EU/dL Normal 0.2-1.0 EU/dL [facility] Comment on above: Order Comment: Speci men Type: URINE SPECIMENOrdering Facility: [facility] Address: [address] [place] [address] Performed By: #### 2 4356-8, 630-4 ####[facility] [id number] [place] [address] [place] WBC LM.HPF (Urine sed) [#/Area] /[HPF] Abnormal 0-5 /HPF [facility] Comment on above: Order Comment: Speci men Type: URINE SPECIMENOrdering Facility: [facility] Address: [address] [place] [address] Performed By: #### 2 4356-8, 630-4 ####[facility] LABCLIA [id number] [address] [address] [place] Yeast.budding LM.HPF (Urine sed) [#/Area] Present Abnormal None Seen [facility] Comment on above: Order Comment: Speci men Type: URINE SPECIMENOrdering Facility: [facility] Address: [address] [place] [address] Performed By: #### 2 4356-8, 630-4 ####[facility] LABIA [id number] [address] [address] [place] Basic metabolic 2000 panelon 11-17-2024 Anion gap [Moles/Vol] 10 mmol/L Normal 8-15 [facility] Comment on above: Order Comment: Speci men Type: BLOOD SPECIMENOrdering Facility: [facility] Address: [address] [place] [address] Performed By: #### 2 4321-2, 64149-5, 2777-1 ####[facility] LABIA [id number] [place] [address] [place] Calcium [Mass/Vol] 8.9 mg/dL Normal 8.5-10.2 [facility] Comment on above: Order Comment: Speci men Type: BLOOD SPECIMENOrdering Facility: [facility] Address: [address] [place] [address] Performed By: #### 2 4321-2, 24996-0, 2777-1 ####[facility] LABIA [id number] [address] [address] [place] Chloride [Moles/Vol] 105 mmol/L Normal 98-107 [facility] Comment on above: Order Comment: Speci men Type: BLOOD SPECIMENOrdering Facility: [facility] Address: [address] [place] [address] Performed By: #### 2 4321-2, 48809-0, 2777-1 ####[facility] LABIA [id number] [address] [address] [place] CO2 [Moles/Vol] 17 mmol/L Low 22-30 [facility] Comment on above: Order Comment: Speci men Type: BLOOD SPECIMENOrdering Facility: [facility] Address: [address] [place] [address] Performed By: #### 2 4321-2, 72513-5, 2776- ####[facility] LABIA [id number] [address] [address] [place] Creatinine [Mass/Vol] 0.77 mg/dL Normal 0.73-1.22 [facility] Comment on above: Order Comment: Speci men Type: BLOOD SPECIMENOrdering Facility: [facility] Address: [address] [place] [address] Performed By: #### 2 432-2, 67957-2, 2776-08 ####[facility] [id number] [place] [address] [place] Creatinine and Glomerular filtration rate.predicted panel (S/P/Bld) 104 mL/min/1.73m??? Normal >=60 [facility] Comment on above: Order Comment: Speci men Type: BLOOD SPECIMENOrdering Facility: [facility] Address: [address] [place] [address] Result Comment: Patric mated Glomerular Filtration Rate [...] actual GFR. Performed By: #### 2 4321-2, 78875-2, 2776-08 ####[facility] LABIA [id number] [address] [address] [place] Glucose [Mass/Vol] 291 mg/dL High 74-99 [facility] Comment on above: Order Comment: Speci men Type: BLOOD SPECIMENOrdering Facility: [facility] Address: [address] [place] [address] Result Comment: The [place] Diabetes Association (ADA) provides guidance for cutoff [...] Standards of Medical Care in Diabetes 2016, [employer]. Diabetes Care. 2016.39(Suppl 1). Performed By: #### 2 4321-2, 26989-9, 2777- ####[facility] LABCLIA [id number] [place] [address] [place] Potassium [Moles/Vol] 4.5 mmol/L Normal 3.7-5.1 [facility] Comment on above: Order Comment: Speci men Type: BLOOD SPECIMENOrdering Facility: [facility] Address: [address] [place] [address] Performed By: #### 2 4321-2, 56225-4, 2777- ####[facility] LABCLIA [id number] [place] [address] [place] Sodium [Moles/Vol] 132 mmol/L Low 136-144 [facility] Comment on above: Order Comment: Speci men Type: BLOOD SPECIMENOrdering Facility: [facility] Address: [address] [place] [address] Performed By: #### 2 4321-2, 18435-4, 2777-1 ####[facility] LABCLIA [id number] [place] [address] [place] Urea nitrogen [Mass/Vol] 9 mg/dL Normal 9-24 [facility] Comment on above: Order Comment: Speci men Type: BLOOD SPECIMENOrdering Facility: [facility] Address: [address] [place] [address] Performed By: #### 2 4321-2, 77164-1, 2777-1 ####[facility] LABCLIA [id number] [place] [address] [place] CASE MANAGEMon 11-17-2024 CASE MANAGEM Normal [facility] CBC W Auto Differential pane l (Bld)on 11-17-2024 Basophils (Bld) [#/Vol] 10*3/uL Normal <0.11 [facility] Comment on above: Order Comment: Speci men Type: BLOOD SPECIMENOrdering Facility: [facility] Address: [address] [place] [address] Performed By: #### 5 7021-8 ####[facility] LABCLIA [id number] [place] [address] [place] Basophils/100 WBC (Bld) 0.0 % Normal [facility] Comment on above: Order Comment: Speci men Type: BLOOD SPECIMENOrdering Facility: [facility] Address: [address] [place] [address] Performed By: #### 5 7021-8 ####[facility] LABCLIA [id number] [address] [place] Differential cell count method Nom (Bld) Auto Normal [facility] Comment on above: Order Comment: Speci men Type: BLOOD SPECIMENOrdering Facility: [facility] Address: [address] [place] [address] Performed By: #### 5 7021-8 ####[facility] LABCLIA [id number] [place] [address] [place] Eosinophils (Bld) [#/Vol] 10*3/uL Normal <0.46 [facility] Comment on above: Order Comment: Speci men Type: BLOOD SPECIMENOrdering Facility: [facility] Address: [address] [place] [address] Performed By: #### 5 7021-8 ####[facility] LABIA [id number] [place] [address] [place] Eosinophils/100 WBC (Bld) 0.0 % Normal [facility] Comment on above: Order Comment: Speci men Type: BLOOD SPECIMENOrdering Facility: [facility] Address: [address] [place] [address] Performed By: #### 5 7021-8 ####[facility] LABIA [id number] [place] [address] [place] Erythrocyte distribution width (RBC) [Ratio] 16.9 % High 11.5-15.0 [facility] Comment on above: Order Comment: Speci men Type: BLOOD SPECIMENOrdering Facility: [facility] Address: [address] [place] [address] Performed By: #### 5 7021-8 ####[facility] LABIA [id number] [place] [address] [place] Hematocrit (Bld) [Volume fraction] 22.7 % Low 39.0-51.0 [facility] Comment on above: Order Comment: Speci men Type: BLOOD SPECIMENOrdering Facility: [facility] Address: [address] [place] [address] Performed By: #### 5 7021-8 ####[facility] LABIA [id number] [place] [id number] [place] Hemoglobin (Bld) [Mass/Vol] 7.7 g/dL Low 13.0-17.0 [facility] Comment on above: Order Comment: Speci men Type: BLOOD SPECIMENOrdering Facility: [facility] Address: [address] [place] [address] Performed By: #### 5 7021-8 ####[facility] LABCLIA [id number] [place] [address] [place] Immature granulocytes (Bld) [#/Vol] 0.03 10*3/uL Normal <0.10 [facility] Comment on above: Order Comment: Speci men Type: BLOOD SPECIMENOrdering Facility: [facility] Address: [address] [place] [address] Performed By: #### 5 7021-8 ####[facility] LABCLIA [id number] [place] [address] [place] Immature granulocytes/100 WBC (Bld) 0.9 % Normal [facility] Comment on above: Order Comment: Speci men Type: BLOOD SPECIMENOrdering Facility: [facility] Address: [address] [place] [address] Performed By: #### 5 7021-8 ####[facility] LABCLIA [id number] [place] [address] [place] Lymphocytes (Bld) [#/Vol] 0.28 10*3/uL Low 1.00-4.00 [facility] Comment on above: Order Comment: Speci men Type: BLOOD SPECIMENOrdering Facility: [facility] Address: [address] [place] [address] Performed By: #### 5 7021-8 ####[facility] LABCLIA [id number] [address] [place] Lymphocytes/100 WBC (Bld) 8.3 % Normal [facility] Comment on above: Order Comment: Speci men Type: BLOOD SPECIMENOrdering Facility: [facility] Address: [address] [place] [address] Performed By: #### 5 7021-8 ####[facility] LABCLIA [id number] [place] [address] [place] MCH (RBC) [Entitic mass] 31.7 pg Normal 26.0-34.0 [facility] Comment on above: Order Comment: Speci men Type: BLOOD SPECIMENOrdering Facility: [facility] Address: [address] [place] [address] Performed By: #### 5 7021-8 ####[facility] LABCLIA [id number] [place] [address] [place] MCHC (RBC) [Mass/Vol] 33.9 g/dL Normal 30.5-36.0 [facility] Comment on above: Order Comment: Speci men Type: BLOOD SPECIMENOrdering Facility: [facility] Address: [address] [place] [address] Performed By: #### 5 7021-8 ####[facility] LABIA [id number] [place] [address] [place] MCV (RBC) [Entitic vol] 93.4 fL Normal 80.0-100.0 [facility] Comment on above: Order Comment: Speci men Type: BLOOD SPECIMENOrdering Facility: [facility] Address: [address] [place] [address] Performed By: #### 5 7021-8 ####[facility] LABIA [id number] [place] [address] [place] Monocytes (Bld) [#/Vol] 0.17 10*3/uL Normal <0.87 [facility] Comment on above: Order Comment: Speci men Type: BLOOD SPECIMENOrdering Facility: [facility] Address: [address] [place] [address] Performed By: #### 5 7021-8 ####[facility] LABIA [id number] [place] [address] [place] Monocytes/100 WBC (Bld) 5.0 % Normal C [facility] Comment on above: Order Comment: Speci men Type: BLOOD SPECIMENOrdering Facility: [facility] Address: [address] [place] [address] Performed By: #### 5 7021-8 ####[facility] LABCLIA [id number] [place] [address] [place] Neutrophils (Bld) [#/Vol] 2.89 10*3/uL Normal 1.45-7.50 [facility] Comment on above: Order Comment: Speci men Type: BLOOD SPECIMENOrdering Facility: [facility] Address: [address] [place] [address] Performed By: #### 5 7021-8 ####[facility] LABCLIA [id number] [place] [address] [place] Neutrophils/100 WBC (Bld) 85.8 % Normal [facility] Comment on above: Order Comment: Speci men Type: BLOOD SPECIMENOrdering Facility: [facility] Address: [address] [place] [address] Performed By: #### 5 7021-8 ####[facility] LABCLIA [id number] [place] [address] [place] Nucleated RBC (Bld) [#/Vol] 10*3/uL Normal <0.01 [facility] Comment on above: Order Comment: Speci men Type: BLOOD SPECIMENOrdering Facility: [facility] Address: [address] [place] [address] Performed By: #### 5 7021-8 ####[facility] LABCLIA [id number] [place] [address] [place] Nucleated RBC/100 WBC (Bld) [Ratio] 0.0 /100 WBC Normal [facility] Comment on above: Order Comment: Speci men Type: BLOOD SPECIMENOrdering Facility: [facility] Address: [address] [place] [address] Performed By: #### 5 7021-8 ####[facility] LABCLIA [id number] [place] [address] [place] Platelet mean volume (Bld) [Entitic vol] 12.0 fL Normal 9.0-12.7 [facility] Comment on above: Order Comment: Speci men Type: BLOOD SPECIMENOrdering Facility: [facility] Address: [address] [place] [address] Performed By: #### 5 7021-8 ####[facility] LABIA [id number] [place] [address] [place] Platelets (Bld) [#/Vol] 57 10*3/uL Low 150-400 C [facility] Comment on above: Order Comment: Speci men Type: BLOOD SPECIMENOrdering Facility: [facility] Address: [address] [place] [address] Performed By: #### 5 7021-8 ####[facility] [id number] [place] [address] [place] RBC (Bld) [#/Vol] 2.43 10*6/uL Low 4.20-6.00 [facility] Comment on above: Order Comment: Speci men Type: BLOOD SPECIMENOrdering Facility: [facility] Address: [address] [place] [address] Performed By: #### 5 7021-8 ####[facility] [id number] [place] [address] [place] WBC (Bld) [#/Vol] 3.37 10*3/uL Low 3.70-11.00 [facility] Comment on above: Order Comment: Speci men Type: BLOOD SPECIMENOrdering Facility: [facility] Address: [address] [place] [address] Performed By: #### 5 7021-8 ####[facility] LABIA [id number] [place] [id number] [place] CONSULT PROGon 11-17-2024 CONSULT PROG Normal [facility] Fact Xa PPP-aCncon Coagulation factor X activated act Coag Qn (PPP) <0.10 Normal <0.10 [facility] Comment on above: Order Comment: Ezekiel ramirez Type: BLOOD SPECIMENOrdering Facility: [facility] Address: [address] [place] [address] Result Comment: The recommended therapeutic range for treatment of venous and arterial thrombosis with intravenous unfractionated heparin is an anti Xa activity level of 0.3 to 0.7 IU/mL. In patients with concomitant therapy with thrombolytic agents and/or platelet glycoprotein IIb/IIIa antagonists, the recommended therapeutic range is an anti Xa activity level of 0.2 to 0.5 IU/mL. Performed By: #### 3 217-7 ####[facility] [id number] [place] [address] [place] Fibrinogen PPP-mCncon 2024 Fibrinogen Coag (PPP) [Mass/Vol] 114 mg/dL Low 200-400 [facility] Comment on above: Order Comment: Ezekiel ramirez Type: BLOOD SPECIMENOrdering Facility: [facility] Address: [address] [place] [address] Performed By: #### 3 255-7, 63401-5 ####[facility] [id number] [place] [address] [place] Hepatic function 2000 panelo n 11-17-2024 Albumin [Mass/Vol] 2.7 g/dL Low 3.9-4.9 [facility] Comment on above: Order Comment: Ezekiel ramirez Type: BLOOD SPECIMENOrdering Facility: [facility] Address: [address] [place] [address] Performed By: #### 2 4321-2, 44079-6, 2777-1 ####[facility] [id number] [place] [address] [place] ALP [Catalytic activity/Vol] 276 U/L High 38-113 [facility] Comment on above: Order Comment: Ezekiel ramirez Type: BLOOD SPECIMENOrdering Facility: [facility] Address: [address] [place] [address] Performed By: #### 2 4321-2, 75578-2, 2776-1 ####[facility] [id number] [place] [address] [place] ALT [Catalytic activity/Vol] 35 U/L Normal 10-54 [facility] Comment on above: Order Comment: Speci men Type: BLOOD SPECIMENOrdering Facility: [facility] Address: [address] [place] [address] Performed By: #### 2 4321-2, 30061-2, 2776- ####[facility] [id number] [place] [address] [place] AST [Catalytic activity/Vol] 80 U/L High 14-40 [facility] Comment on above: Order Comment: Speci men Type: BLOOD SPECIMENOrdering Facility: [facility] Address: [address] [place] [address] Performed By: #### 2 4321-2, 29443-6, 2776- ####[facility] [id number] [place] [address] [place] Bilirubin [Mass/Vol] 1.8 mg/dL High 0.2-1.3 [facility] Comment on above: Order Comment: Speci men Type: BLOOD SPECIMENOrdering Facility: [facility] Address: [address] [place] [address] Performed By: #### 2 4321-2, 90228-4, 2776- ####[facility] [id number] [place] [id number] [place] Bilirubin.conjugated [Mass/Vol] 1.0 mg/dL High <0.3 [facility] Comment on above: Order Comment: Speci men Type: BLOOD SPECIMENOrdering Facility: [facility] Address: [address] [place] [address] Performed By: #### 2 4321-2, 18323-8, 7-1 ####[facility] [id number] [place] [address] [place] Protein [Mass/Vol] 5.2 g/dL Low 6.3-8.0 [facility] Comment on above: Order Comment: Speci men Type: BLOOD SPECIMENOrdering Facility: [facility] Address: [address] [place] [address] Performed By: #### 2 4321-2, 65466-2, 2777- ####[facility] [id number] [place] [address] [place] NUTRITIONon 11-17-2024 NUTRITION Normal [facility] PSA/PROSTATE SPECIFIC ANTIGE N SCREENINGon 11-17-2024 Prostate specific Ag [Mass/Vol] 0.52 ng/mL Normal <2.60 [facility] Comment on above: Order Comment: Speci men Type: BLOOD SPECIMENOrdering Facility: [facility] Address: [address] [place] [address] Result Comment: Tota l PSA test methodology used is the Electrochemiluminescence Immunoassay by [employer]. Total PSA values by differing methodologies cannot be interchanged. Performed By: #### P SAS1 ####[facility] [id number] [place] [id number] [place] PT panel Coag (PPP)on 2024 INR Coag (PPP) [Relative time] 2.0 {INR} High 0.9-1.3 [facility] Comment on above: Order Comment: Speci men Type: BLOOD SPECIMENOrdering Facility: [facility] Address: [address] [place] [address] Result Comment: Sarah min K Antagonist (VKA) Therapeutic Range: INR 2 to 3 (Target INR of 2.5)Note: For patients treated with VKA drugs, such as warfarin, the [employer] 2012 Guideline recommends [...] al. Chest 2012, 141:7S-47SNishimura RA, et al. [facility] 2017, 70: 252-289 Performed By: #### 3 255-7, 63088-5 ####[facility] [id number] [place] [address] [place] PT Coag (PPP) [Time] 20.6 s High 9.7-13.0 [facility] Comment on above: Order Comment: Ezekiel ramirez Type: BLOOD SPECIMENOrdering Facility: [facility] Address: [address] [place] [address] Performed By: #### 3 255-7, 58831-3 ####[facility] [id number] [place] [address] [place] PTT, ANTICOAGULANT THERAPYon 11-17-2024 aPTT Coag (PPP) [Time] 41.6 s High 23.0-32.4 [facility] Comment on above: Order Comment: Ezekiel ramirez Type: BLOOD SPECIMENOrdering Facility: [facility] Address: [address] [place] [address] Performed By: #### P TTAC ####[facility] [id number] [place] [address] [place] Phosphate SerPl-mCncon 11-17 Phosphate [Mass/Vol] 1.9 mg/dL Low 2.7-4.8 [facility] Comment on above: Order Comment: Ezekiel ramirez Type: BLOOD SPECIMENOrdering Facility: [facility] Address: [address] [place] [address] Performed By: #### 2 4321-2, 71871-1, 2777-1 ####[facility] [id number] [place] [id number] [place] THERAPY NTon 11-17-2024 THERAPY NT Normal [facility] aPTT PPPon 11-17-2024 aPTT Coag (PPP) [Time] s High 23.0-32.4 [facility] Comment on above: Order Comment: Spechelder ramirez Type: BLOOD SPECIMENOrdering Facility: [facility] Address: [address] [place] [address] Result Comment: Resu lt rechecked.Sample checked for clot. Performed By: #### 1 4979-9, PTTAC ####[facility] [id number] [address] [place] ANES POSTPROC EVALon [address]25 [address]PROC EVAL Normal [facility] ANES PRE-OPon 11-16-2024 ANES PRE-OP Normal [facility] Albumin Fld-mCncon Albumin (Body fld) [Mass/Vol] 0.2 g/dL Normal See Comment [facility] Comment on above: Order Comment: Ezekiel ramirez Type: FLUID SPECIMENOrdering Facility: [facility] Address: [address] [place] [address] Result Comment: Body Fluid Albumin may be [...] document C49A. PAULETTE Diaz: Clinical Laboratory Standards Lillie: 2007.2. Amy JACKSON. Serum to ascites albumin gradient. UpToDate. 2015. Accessed on November 15, 2015.This test was developed, and its performance characteristics determined by the [facility] Department of Pathology and Laboratory Medicine. It has not been cleared or approved by the FDA. The [facility] Department of Pathology and Laboratory Medicine is regulated under CLIA as qualified to perform high-complexity testing. This test is used for clinical purposes. It should not be regarded as investigational or for research. Performed By: #### 1 795-4, 2881-1, 1747-5 ####[facility] [id number] [place] [address] [place] Fluid Nom (Body fld) Ascites Fluid Normal C [facility] Comment on above: Order Comment: Speci men Type: FLUID SPECIMENOrdering Facility: [facility] Address: [address] [place] [address] Performed By: #### 1 795-4, 2881-1, 1747-5 ####[facility] [id number] [place] [address] [place] Amylase Fld-cCncon 5 Amylase (Body fld) [Catalytic activity/Vol] 17 U/L Normal See Comment [facility] Comment on above: Order Comment: [facility] Type: FLUID SPECIMENOrdering Facility: [facility] Address: [address] [place] [address] Result Comment: PLEU RAL FLUIDS:Amylase measurement in [...] document C49-A. PAULETTE Diaz: Clinical Laboratory Standards Lillie; 2007.3. Kelby CONCEPCION, John BRAR, Star DJ. Use of cyst fluid CEA, CA19-9, and amylase for evaluation of pancreatic lesions. Clinical Biochemistry. 2009;42:8269-9219.This test was developed, and its performance characteristics determined by the [facility] Department of Pathology and Laboratory Medicine. It has not been cleared or approved by the FDA. The [facility] Department of Pathology and Laboratory Medicine is regulated under CLIA as qualified to perform high-complexity testing. This test is used for clinical purposes. It should not be regarded as investigational or for research. Performed By: #### 1 795-4, 2881-1, 1747-5 ####[facility]CL[facility] [id number] [address] [address] [place] BODY FLUID CELL COUNTon 04-1 Clarity (Unsp spec) Clear Normal Clear [facility] Comment on above: Order Comment: Speci men Type: FLUID SPECIMENOrdering Facility: [facility] Address: [address] [place] [address] Performed By: #### C CBF, [id number] ####[facility] [id number] [address] [place] [address] [place] Color (Body fld) Yellow Normal Yellow [facility] Comment on above: Order Comment: Speci men Type: FLUID SPECIMENOrdering Facility: [facility] Address: [address] [place] [address] Performed By: #### C CBF, [id number] ####[facility] [id number] [address] [id number] [address] [place] RBC Manual cnt (Body fld) [#/Vol] 3000 /uL High <2000 [facility] Comment on above: Order Comment: Speci men Type: FLUID SPECIMENOrdering Facility: [facility] Address: [address] [place] [address] Performed By: #### C CBF, [id number] ####[facility] [id number] [place] [address] [place] Specimen source Nom (Body fld) Ascites Fluid Normal [facility] Comment on above: Order Comment: Speci men Type: FLUID SPECIMENOrdering Facility: [facility] Address: [address] [place] [address] Performed By: #### C CBF, [id number] ####[facility] [id number] [place] [address] [place] WBC Manual cnt (Body fld) [#/Vol] 58 /uL Normal <1000 [facility] Comment on above: Order Comment: Speci men Type: FLUID SPECIMENOrdering Facility: [facility] Address: [address] [place] [address] Performed By: #### C CBF, [id number] ####[facility] [id number] [facility] [address] [place] Bacteria Fld Culton 11-17-19 Bacteria identified Cx Nom (Body fld) CULTURE, BODY FLD: No growth GRAM STAIN: No organisms seen Few Polymorphonuclear leukocytes Gram stain performed on cytospun specimen. Gram stain from primary specimen Normal [facility] Comment on above: Performed By: #### 6 35-3, 611-4 ####[facility] [id number] [place] [address] [place] Bacteria Spec Anaerobe Culto n 11-16-2024 Bacteria identified Anaer cx Nom (Unsp spec) Negative Normal [facility] Comment on above: Performed By: #### 6 35-3, 611-4 ####[facility] [id number] [address] [address] [place] Basic metabolic 2000 panelon 11-16-2024 Anion gap [Moles/Vol] 10 mmol/L Normal 8-15 [facility] Comment on above: Order Comment: Speci men Type: BLOOD SPECIMENOrdering Facility: [facility] Address: [address] [place] [address] Performed By: #### 2 4321-2, 34606-9, 2776- ####[facility] [id number] [place] [address] [place] Calcium [Mass/Vol] 8.4 mg/dL Low 8.5-10.2 [facility] Comment on above: Order Comment: Speci men Type: BLOOD SPECIMENOrdering Facility: [facility] Address: [address] [place] [address] Performed By: #### 2 4321-2, 79259-0, 2776- ####[facility] [id number] [place] [address] [place] Chloride [Moles/Vol] 102 mmol/L Normal 98-107 [facility] Comment on above: Order Comment: Speci men Type: BLOOD SPECIMENOrdering Facility: [facility] Address: [address] [place], [place] [address] Performed By: #### 2 4321-2, 37028-1, 2776- ####[facility] [id number] [address] [address] [place] CO2 [Moles/Vol] 18 mmol/L Low 22-30 [facility] Comment on above: Order Comment: Speci men Type: BLOOD SPECIMENOrdering Facility: [facility] Address: [address] [place], [place] [address] Performed By: #### 2 4321-2, 78962-9, 277-1 ####[facility] [id number] [place] [address] [place] Creatinine [Mass/Vol] 0.73 mg/dL Normal 0.73-1.22 [facility] Comment on above: Order Comment: Ezekiel ramirez Type: BLOOD SPECIMENOrdering Facility: [facility] Address: [address] [place] [address] Performed By: #### 2 4321-2, 25539-2, 2777- ####[facility] [id number] [place] [address] [place] [facility] Creatinine and Glomerular filtration rate.predicted panel (S/P/Bld) 105 mL/min/1.73m??? Normal >=60 [facility] Comment on above: Order Comment: Ezekiel ramirez Type: BLOOD SPECIMENOrdering Facility: [facility] Address: [address] [place] [address] Result Comment: Patric mated Glomerular Filtration Rate [...] actual GFR. Performed By: #### 2 4321-2, 76252-2, 277- ####[facility] [id number] [place] [id number] [place] Glucose [Mass/Vol] 181 mg/dL High 74-99 [facility] Comment on above: Order Comment: Ezekiel james Type: BLOOD SPECIMENOrdering Facility: [facility] Address: [address] [place] [address] Result Comment: The [place] Diabetes Association (ADA) provides guidance for cutoff [...] Standards of Medical Care in Diabetes 2016, [place] [employer] Association. Diabetes Care. 2016.39(Suppl 1). Performed By: #### 2 4321-2, 86507-5, 2776- ####[facility] [id number] [place] [address] [place] Potassium [Moles/Vol] 3.6 mmol/L Low 3.7-5.1 [facility] Comment on above: Order Comment: Speci men Type: BLOOD SPECIMENOrdering Facility: [facility] Address: [address] [place] [address] Performed By: #### 2 4320-2, 63315-6, 2776-08 ####[facility] [id number] [place] [address] [place] Sodium [Moles/Vol] 130 mmol/L Low 136-144 [facility] Comment on above: Order Comment: Speci men Type: BLOOD SPECIMENOrdering Facility: [facility] Address: [address] [place] [address] Performed By: #### 2 432-2, 79895-6, 2776-08 ####[facility] [id number] [place] [address] [place] Urea nitrogen [Mass/Vol] 9 mg/dL Normal 9-24 [facility] Comment on above: Order Comment: Speci men Type: BLOOD SPECIMENOrdering Facility: [facility] Address: [address] [place] [address] Performed By: #### 2 432-2, 51717-3, 2776-08 ####[facility] [id number] [place] [id number] [place] CBC W Auto Differential pane l (Bld)on 11-16-2024 Basophils (Bld) [#/Vol] 0.05 10*3/uL Normal <0.11 [facility] Comment on above: Order Comment: Speci men Type: BLOOD SPECIMENOrdering Facility: [facility] Address: [address] [place] [address] Performed By: #### 5 7021-8 ####[facility] [id number] [facility] [address], [place] [address] [place] Basophils/100 WBC (Bld) 0.8 % Normal [facility] Comment on above: Order Comment: Speci men Type: BLOOD SPECIMENOrdering Facility: [facility] Address: [address] [place] [address] Performed By: #### 5 7021-8 ####[facility] [id number] [place] [address] [place] Differential cell count method Nom (Bld) Auto Normal [facility] Comment on above: Order Comment: Speci men Type: BLOOD SPECIMENOrdering Facility: [facility] Address: [address] [place] [address] Performed By: #### 5 7021-8 ####[facility] [id number] [place] [address] [place] Eosinophils (Bld) [#/Vol] 0.22 10*3/uL Normal <0.46 [facility] Comment on above: Order Comment: Speci men Type: BLOOD SPECIMENOrdering Facility: [facility] Address: [address] [place] [address] Performed By: #### 5 7021-8 ####[facility] [id number] [place] [address] [place] Eosinophils/100 WBC (Bld) 3.6 % Normal [facility] Comment on above: Order Comment: Speci men Type: BLOOD SPECIMENOrdering Facility: [facility] Address: [address] [place] [address] Performed By: #### 5 7021-8 ####[facility] [id number] [place] [address] [place] Erythrocyte distribution width (RBC) [Ratio] 16.7 % High 11.5-15.0 [facility] Comment on above: Order Comment: Speci men Type: BLOOD SPECIMENOrdering Facility: [facility] Address: [address] [place] [address] Performed By: #### 5 7021-8 ####[facility] [id number] [place] [address] [place] Hematocrit (Bld) [Volume fraction] 24.0 % Low 39.0-51.0 [facility] Comment on above: Order Comment: Speci men Type: BLOOD SPECIMENOrdering Facility: [facility] Address: [address] [place] [address] Performed By: #### 5 7021-8 ####[facility] [id number] [place] [address] [place] Hemoglobin (Bld) [Mass/Vol] 8.3 g/dL Low 13.0-17.0 [facility] Comment on above: Order Comment: Speci men Type: BLOOD SPECIMENOrdering Facility: [facility] Address: [address] [place] [address] Performed By: #### 5 7021-8 ####[facility] [id number] [place] [address] [place] Immature granulocytes (Bld) [#/Vol] 0.05 10*3/uL Normal <0.10 [facility] Comment on above: Order Comment: Speci men Type: BLOOD SPECIMENOrdering Facility: [facility] Address: [address] [place] [address] Performed By: #### 5 7021-8 ####[facility] [id number] [place] [address] [place] Immature granulocytes/100 WBC (Bld) 0.8 % Normal [facility] Comment on above: Order Comment: Speci men Type: BLOOD SPECIMENOrdering Facility: [facility] Address: [address] [place] [address] Performed By: #### 5 7021-8 ####[facility] [id number] [place] [address] [place] Lymphocytes (Bld) [#/Vol] 0.75 10*3/uL Low 1.00-4.00 [facility] Comment on above: Order Comment: Speci men Type: BLOOD SPECIMENOrdering Facility: [facility] Address: [address] [place] [address] Performed By: #### 5 7021-8 ####[facility] [id number] [place] [address] [place] Lymphocytes/100 WBC (Bld) 12.4 % Normal [facility] Comment on above: Order Comment: Speci men Type: BLOOD SPECIMENOrdering Facility: [facility] Address: [address] [place] [address] Performed By: #### 5 7021-8 ####[facility] [id number] [place] [address] [place] MCH (RBC) [Entitic mass] 31.9 pg Normal 26.0-34.0 [facility] Comment on above: Order Comment: Speci men Type: BLOOD SPECIMENOrdering Facility: [facility] Address: [address] [place] [address] Performed By: #### 5 7021-8 ####[facility] [id number] [place] [address] [place] MCHC (RBC) [Mass/Vol] 34.6 g/dL Normal 30.5-36.0 [facility] Comment on above: Order Comment: Speci men Type: BLOOD SPECIMENOrdering Facility: [facility] Address: [address] [place] [address] Performed By: #### 5 7021-8 ####[facility] [id number] [place] [address] [place] MCV (RBC) [Entitic vol] 92.3 fL Normal 80.0-100.0 C [facility] Comment on above: Order Comment: Speci men Type: BLOOD SPECIMENOrdering Facility: [facility] Address: [address] [place] [address] Performed By: #### 5 7021-8 ####[facility] [id number] [place] [address] [place] Monocytes (Bld) [#/Vol] 0.68 10*3/uL Normal <0.87 [facility] Comment on above: Order Comment: Speci men Type: BLOOD SPECIMENOrdering Facility: [facility] Address: [address] [place] [address] Performed By: #### 5 7021-8 ####[facility] [id number] [place] [address] [place] Monocytes/100 WBC (Bld) 11.3 % Normal C [facility] Comment on above: Order Comment: Speci men Type: BLOOD SPECIMENOrdering Facility: [facility] Address: [address] [place] [address] Performed By: #### 5 7021-8 ####[facility] [id number] [place] [id number] [place] Neutrophils (Bld) [#/Vol] 4.28 10*3/uL Normal 1.45-7.50 [facility] Comment on above: Order Comment: Speci men Type: BLOOD SPECIMENOrdering Facility: [facility] Address: [address] [place] [address] Performed By: #### 5 7021-8 ####[facility] [id number] [place] [address] [place] Neutrophils/100 WBC (Bld) 71.1 % Normal [facility] Comment on above: Order Comment: Speci men Type: BLOOD SPECIMENOrdering Facility: [facility] Address: [address] [place] [address] Performed By: #### 5 7021-8 ####[facility] [id number] [place] [address] [place] Nucleated RBC (Bld) [#/Vol] 10*3/uL Normal <0.01 [facility] Comment on above: Order Comment: Speci men Type: BLOOD SPECIMENOrdering Facility: [facility] Address: [address] [place] [address] Performed By: #### 5 7021-8 ####[facility] [id number] [place] [address] [place] Nucleated RBC/100 WBC (Bld) [Ratio] 0.0 /100 WBC Normal [facility] Comment on above: Order Comment: Speci men Type: BLOOD SPECIMENOrdering Facility: [facility] Address: [address] [place] [address] Performed By: #### 5 7021-8 ####[facility] [id number] [place] [address] [place] Platelet mean volume (Bld) [Entitic vol] 11.8 fL Normal 9.0-12.7 [facility] Comment on above: Order Comment: Speci men Type: BLOOD SPECIMENOrdering Facility: [facility] Address: [address] [place] [address] Performed By: #### 5 7021-8 ####[facility] [id number] [place] [address] [place] Platelets (Bld) [#/Vol] 59 10*3/uL Low 150-400 C [facility] Comment on above: Order Comment: Speci men Type: BLOOD SPECIMENOrdering Facility: [facility] Address: [address] [place] [address] Result Comment: No c lot detected.Results checked and verified. Performed By: #### 5 7021-8 ####[facility] LABCLIA [id number] [place] [address] [place] RBC (Bld) [#/Vol] 2.60 10*6/uL Low 4.20-6.00 [facility] Comment on above: Order Comment: Speci men Type: BLOOD SPECIMENOrdering Facility: [facility] Address: [address] [place] [address] Performed By: #### 5 7021-8 ####[facility]CL[facility] [id number] [place] [address] [place] WBC (Bld) [#/Vol] 6.03 10*3/uL Normal 3.70-11.00 [facility] Comment on above: Order Comment: Speci men Type: BLOOD SPECIMENOrdering Facility: [facility] Address: [address] [place] [address] Performed By: #### 5 7021-8 ####[facility]CL[facility] [id number] [place] [address] [place] CONSULT PROGon 11-16-2024 CONSULT PROG Normal [facility] CYTOLOGY NON-GYNon 5 AP DISCLAIMER Normal [facility] Comment on above: Order Comment: Speci men Type: FLUID SPECIMENOrdering Facility: [facility] Address: [address] [place] [address] Result Comment: Shellie pugh Developed Test (LDT) Disclaimer:Performance characteristics of immunohistochemical, immunofluorescent, and chromogenic in-situ hybridization tests have been determined by the performing laboratory within [facility]'s Thai Torres Pathology and Laboratory Medicine Department ([facility], [facility], [facility], [facility], [facility], [facility], or [facility]) in a manner [...] stain appropriately. Performed By: #### C YTONON ####[facility]CL[facility] [id number] [address] [place] CASE REPORT Normal [facility] Comment on above: Order Comment: Speci men Type: FLUID SPECIMENOrdering Facility: [facility] Address: [address] [place] [address] Result Comment: [facility] Cytology Report Case: [id number] Provider: Young Cruz MD Collected: 11/16/2024 08:42 AMOrdering Location: [place] [address] Received: 11/16/2024 06:20 PMPathologist: Stefani Mcneal MDSpecimen: Peritoneal Fluid. Performed By: #### C YTONON ####[facility] LABIA [id number] [address] [place] CLINICAL HISTORY Cirrhosis with ascites Normal [facility] Comment on above: Order Comment: Speci men Type: FLUID SPECIMENOrdering Facility: [facility] Address: [address] [place] [address] Performed By: #### C YTONON ####[facility] LABIA [id number] [address] FINAL DIAGNOSIS Normal [facility] Comment on above: Order Comment: Speci men Type: FLUID SPECIMENOrdering Facility: [facility] Address: [address] [place] [address] Result Comment: A - Peritoneal Fluid Negative for malignant cells. Chronic inflammation.The following cell blocks were associated with this case:A1 Cell Block, Alcohol Fixed at 1223 EDT Performed By: #### C YTONON ####[facility]CLIA [id number] [place] [address] [place] FINAL PERFORMING LAB Normal [facility] Comment on above: Order Comment: Speci men Type: FLUID SPECIMENOrdering Facility: [facility] Address: [address] [place] [address] Result Comment: Tech nical component, core carrier screening performed at: [facility], [address] [place] [address] CLIA: [id number] interpretation performed at: [facility], [address] [place] [address] CLIA# [id number] Director: Titi Voss MD Performed By: #### C YTONON ####[facility]CLIA [id number] [place] [address] [place] GROSS DESCRIPTION Normal [facility] Comment on above: Order Comment: Speci men Type: FLUID SPECIMENOrdering Facility: [facility] Address: [address] [place] [address] Result Comment: A. P eritoneal Fluid.1450 cc opaque red fluid . ThinPrep and Cell Block prepared. Performed By: #### C YTONON ####[facility]CLIA [id number] [place] [address] [place] ECG COMPLETEon 11-16-2024 ECG COMPLETE Normal [facility] Fibrinogen PPP-mCncon 2024 Fibrinogen Coag (PPP) [Mass/Vol] 127 mg/dL Low 200-400 [facility] Comment on above: Order Comment: Speci men Type: BLOOD SPECIMENOrdering Facility: [facility] Address: [address] [place] [address] Performed By: #### 3 255-7, 52326-1 ####[facility]CLIA [id number] [place] [address] [place] Hepatic function 2000 panelo n 11-16-2024 Albumin [Mass/Vol] 2.8 g/dL Low 3.9-4.9 [facility] Comment on above: Order Comment: Speci men Type: BLOOD SPECIMENOrdering Facility: [facility] Address: [address] [place] [address] Performed By: #### 2 4321-2, 59237-7, 2777-1 ####[facility]CLIA [id number] [place] [address] [place] ALP [Catalytic activity/Vol] 295 U/L High 38-113 [facility] Comment on above: Order Comment: Speci men Type: BLOOD SPECIMENOrdering Facility: [facility] Address: [address] [place] [address] Performed By: #### 2 4321-2, 03051-3, 2777-1 ####[facility]CLIA [id number] [address] [place] ALT [Catalytic activity/Vol] 38 U/L Normal 10-54 [facility] Comment on above: Order Comment: Speci men Type: BLOOD SPECIMENOrdering Facility: [facility] Address: [address] [place] [address] Performed By: #### 2 4321-2, 95801-9, 277-1 ####[facility]CLIA [id number] [place] [address] [place] AST [Catalytic activity/Vol] 88 U/L High 14-40 [facility] Comment on above: Order Comment: Speci men Type: BLOOD SPECIMENOrdering Facility: [facility] Address: [address] [place] [address] Performed By: #### 2 4321-2, 95809-4, 2777-1 ####[facility]CLIA [id number] [place] [address] [place] Bilirubin [Mass/Vol] 1.8 mg/dL High 0.2-1.3 [facility] Comment on above: Order Comment: Speci men Type: BLOOD SPECIMENOrdering Facility: [facility] Address: [address] [place] [address] Performed By: #### 2 4321-2, 67057-8, 277-1 ####[facility]CLIA [id number] [place] [address] [place] Bilirubin.conjugated [Mass/Vol] 0.9 mg/dL High <0.3 [facility] Comment on above: Order Comment: Speci men Type: BLOOD SPECIMENOrdering Facility: [facility] Address: [address] [place] [address] Performed By: #### 2 4321-2, 41319-2, 277- ####[facility]CLIA [id number] [place] [address] [place] Protein [Mass/Vol] 5.5 g/dL Low 6.3-8.0 [facility] Comment on above: Order Comment: Speci men Type: BLOOD SPECIMENOrdering Facility: [facility] Address: [address] [place] [address] Performed By: #### 2 4321-2, 47882-5, 277- ####[facility]CLIA [id number] [place] [address] [place] MANUAL DIFFERENTIAL, BODY FL UIDon 11-16-2024 DIF TTL, BODY FLUID 100 cells counted Normal [facility] Comment on above: Order Comment: Speci men Type: FLUID SPECIMENOrdering Facility: [facility] Address: [address] [place] [address] Performed By: #### C CBF, [id number] ####[facility]CLIA [id number] [address] [address] [place] LYMPH%, BF 47 % High 18-36 [facility] Comment on above: Order Comment: Speci men Type: FLUID SPECIMENOrdering Facility: [facility] Address: [address] [place] [address] Performed By: #### C CBF, [id number] ####[facility] LABCLIA [id number] [address] [place] [address] [place] MACRO%, BF 6 % Low 64-80 [facility] Comment on above: Order Comment: Speci men Type: FLUID SPECIMENOrdering Facility: [facility] Address: [address] [place] [address] Performed By: #### C CBF, [id number] ####[facility]CLIA [id number] [address], [place] [address] [place] MESO %, BF 25 % High 0-2 [facility] Comment on above: Order Comment: Speci men Type: FLUID SPECIMENOrdering Facility: [facility] Address: [address] [place] [address] Performed By: #### C CBF, [id number] ####[facility] LABCLIA [id number] [address], [facility] [place] MONO% BF 8 % Normal [facility] Comment on above: Order Comment: Speci men Type: FLUID SPECIMENOrdering Facility: [facility] Address: [address] [place] [address] Performed By: #### C CBF, [id number] ####[facility]CLIA [id number] [address], [facility] [place] NEUT%, BF 14 % High 0-1 [facility] Comment on above: Order Comment: Speci men Type: FLUID SPECIMENOrdering Facility: [facility] Address: [address] [place] [address] Performed By: #### C CBF, [id number] ####[facility]CLIA [id number] [address], [facility] [place] NURSING PROGon 11-16-2024 NURSING PROG Normal [facility] NURSING PROG Normal [facility] PT panel Coag (PPP)on 2024 INR Coag (PPP) [Relative time] 2.1 {INR} High 0.9-1.3 [facility] Comment on above: Order Comment: Ezekiel ramirez Type: BLOOD SPECIMENOrdering Facility: [facility] Address: [address] [place] [address] Result Comment: Sarah min K Antagonist (VKA) Therapeutic Range: INR 2 to 3 (Target INR of 2.5)Note: For patients treated with VKA drugs, such as warfarin, the [employer] 2012 Guideline recommends [...] al. Chest 2012, 141:7S-47SNishimura RA, et al. [facility] 2017, 70: 252-289 Performed By: #### 3 4528-0 ####[facility] [id number] [place] [address] [place] PT Coag (PPP) [Time] 21.5 s High 9.7-13.0 [facility] Comment on above: Order Comment: Ezekiel ramirez Type: BLOOD SPECIMENOrdering Facility: [facility] Address: [address] [place] [address] Performed By: #### 3 4528-0 ####[facility] LABIA [id number] [place] [address] [place] INR Coag (PPP) [Relative time] 2.0 {INR} High 0.9-1.3 [facility] Comment on above: Order Comment: Speci men Type: BLOOD SPECIMENOrdering Facility: [facility] Address: [address] [place] [address] Result Comment: Sarah min K Antagonist (VKA) Therapeutic Range: INR 2 to 3 (Target INR of 2.5)Note: For patients treated with VKA drugs, such as warfarin, the [employer] 2012 Guideline recommends [...] al. Chest 2012, 141:7S-47SNishbethel RA, et al. [facility] 2017, 70: 252-289 Performed By: #### 3 255-7, 46692-7 ####[facility] [id number] [place] [address] [place] PT Coag (PPP) [Time] 20.3 s High 9.7-13.0 [facility] Comment on above: Order Comment: Ezekiel ramirez Type: BLOOD SPECIMENOrdering Facility: [facility] Address: [address] [place] [address] Performed By: #### 3 255-7, 97984-8 ####[facility] [id number] [place] [address] [place] Phosphate SerPl-mCncon 11-16 Phosphate [Mass/Vol] 2.3 mg/dL Low 2.7-4.8 [facility] Comment on above: Order Comment: Ezekiel ramirez Type: BLOOD SPECIMENOrdering Facility: [facility] Address: [address] [place] [address] Performed By: #### 2 4321-2, 55396-9, 2777-1 ####[facility] LABCLIA [id number] [place] [address] [place] Prot Fld-mCncon 11-16-2024 Protein (Body fld) [Mass/Vol] 0.5 g/dL Normal See Comment [facility] Comment on above: Order Comment: Speci men Type: FLUID SPECIMENOrdering Facility: [facility] Address: [address] [place] [address] Result Comment: Sero us fluids: Effusions are [...] document C49A. PAULETTE Diaz: Clinical Laboratory Standards Lillie: 2007. Performed By: #### 1 795-4, 2881-1, 1747-5 ####[facility] LABIA [id number] [place] [address] [place] THERAPY NTon 11-16-2024 THERAPY NT Normal [facility] THERAPY NT Normal [facility] BLOOD TB SCREENon 11-15-2024 M. tuberculosis tuberculin stim IFN-g Ql (Bld) Indeterminate Normal [facility] Comment on above: Order Comment: Speci men Type: BLOOD SPECIMENOrdering Facility: [facility] Address: [address] [place] [address] Performed By: #### I NFTBP ####[facility] LABIA [id number] [place] [address] [place] MITOGEN MINUS NIL 0.25 IU/mL Low >=0.50 [facility] Comment on above: Order Comment: Speci men Type: BLOOD SPECIMENOrdering Facility: [facility] Address: [address] [place] [address] Performed By: #### I NFTBP ####[facility] LABCLIA [id number] [place] [address] [place] TB GAMMA INTERPRETATION Normal C [facility] Comment on above: Order Comment: Speci men Type: BLOOD SPECIMENOrdering Facility: [facility] Address: [address] [place] [address] Performed By: #### I NFTBP ####[facility] LABCLIA [id number] [place] [address] [place] TB NIL 0.01 IU/mL Normal <=8.00 [facility] Comment on above: Order Comment: Speci men Type: BLOOD SPECIMENOrdering Facility: [facility] Address: [address] [place] [address] Performed By: #### I NFTBP ####[facility] LABCLIA [id number] [place] [address] [place] TB1 AG MINUS NIL 0.00 IU/mL Normal <0.35 [facility] Comment on above: Order Comment: Speci men Type: BLOOD SPECIMENOrdering Facility: [facility] Address: [address] [place] [address] Performed By: #### I NFTBP ####[facility]CLIA [id number] [place] [address] [place] TB2 AG MINUS NIL 0.01 IU/mL Normal <0.35 [facility] Comment on above: Order Comment: Speci men Type: BLOOD SPECIMENOrdering Facility: [facility] Address: [address] [place] [address] Performed By: #### I NFTBP ####[facility]CLIA [id number] [address] [place] [address] [place] CASE MANAGEMon 11-15-2024 CASE MANAGEM Normal [facility] CASE MANAGEM Normal [facility] CBC W Auto Differential pane l (Bld)on 11-15-2024 Basophils (Bld) [#/Vol] 0.05 10*3/uL Normal <0.11 [facility] Comment on above: Order Comment: Speci men Type: BLOOD SPECIMENOrdering Facility: [facility] Address: [address] [place] [address] Performed By: #### 5 7021-8 ####[facility]CLIA [id number] [place] [address] [place] Basophils/100 WBC (Bld) 0.8 % Normal C [facility] Comment on above: Order Comment: Speci men Type: BLOOD SPECIMENOrdering Facility: [facility] Address: [address] [place] [address] Performed By: #### 5 7021-8 ####[facility]CL[facility] [id number] [place] [address] [place] Differential cell count method Nom (Bld) Auto Normal [facility] Comment on above: Order Comment: Speci men Type: BLOOD SPECIMENOrdering Facility: [facility] Address: [address] [place] [address] Performed By: #### 5 7021-8 ####[facility]CL[facility] [id number] [place] [address] [place] Eosinophils (Bld) [#/Vol] 0.28 10*3/uL Normal <0.46 [facility] Comment on above: Order Comment: Speci men Type: BLOOD SPECIMENOrdering Facility: [facility] Address: [address] [place] [address] Performed By: #### 5 7021-8 ####[facility]CLIA [id number] [place] [address] [place] Eosinophils/100 WBC (Bld) 4.6 % Normal [facility] Comment on above: Order Comment: Speci men Type: BLOOD SPECIMENOrdering Facility: [facility] Address: [address] [place] [address] Performed By: #### 5 7021-8 ####[facility]CL[facility] [id number] [place] [address] [place] Erythrocyte distribution width (RBC) [Ratio] 16.8 % High 11.5-15.0 [facility] Comment on above: Order Comment: Speci men Type: BLOOD SPECIMENOrdering Facility: [facility] Address: [address] [place] [address] Performed By: #### 5 7021-8 ####[facility]CL[facility] [id number] [place] [address] [place] Hematocrit (Bld) [Volume fraction] 22.9 % Low 39.0-51.0 [facility] Comment on above: Order Comment: Speci men Type: BLOOD SPECIMENOrdering Facility: [facility] Address: [address] [place] [address] Performed By: #### 5 7021-8 ####[facility]CLIA [id number] [address], [address] [place] Hemoglobin (Bld) [Mass/Vol] 7.6 g/dL Low 13.0-17.0 [facility] Comment on above: Order Comment: Speci men Type: BLOOD SPECIMENOrdering Facility: [facility] Address: [address] [place] [address] Performed By: #### 5 7021-8 ####[facility]CL[facility] [id number] [place] [address] [place] Immature granulocytes (Bld) [#/Vol] 0.03 10*3/uL Normal <0.10 [facility] Comment on above: Order Comment: Speci men Type: BLOOD SPECIMENOrdering Facility: [facility] Address: [address] [place] [address] Performed By: #### 5 7021-8 ####[facility]CL[facility] [id number] [place] [address] [place] Immature granulocytes/100 WBC (Bld) 0.5 % Normal [facility] Comment on above: Order Comment: Speci men Type: BLOOD SPECIMENOrdering Facility: [facility] Address: [address] [place] [address] Performed By: #### 5 7021-8 ####[facility]CL[facility] [id number] [place] [address] [place] Lymphocytes (Bld) [#/Vol] 0.70 10*3/uL Low 1.00-4.00 [facility] Comment on above: Order Comment: Speci men Type: BLOOD SPECIMENOrdering Facility: [facility] Address: [address] [place] [address] Performed By: #### 5 7021-8 ####[facility]IA [id number] [place] [address] [place] Lymphocytes/100 WBC (Bld) 11.5 % Normal [facility] Comment on above: Order Comment: Speci men Type: BLOOD SPECIMENOrdering Facility: [facility] Address: [address] [place] [address] Performed By: #### 5 7021-8 ####[facility]CL[facility] [id number] [place] [address] [place] MCH (RBC) [Entitic mass] 30.6 pg Normal 26.0-34.0 [facility] Comment on above: Order Comment: Speci men Type: BLOOD SPECIMENOrdering Facility: [facility] Address: [address] [place] [address] Performed By: #### 5 7021-8 ####[facility]CL[facility] [id number] [place] [address] [place] MCHC (RBC) [Mass/Vol] 33.2 g/dL Normal 30.5-36.0 [facility] Comment on above: Order Comment: Speci men Type: BLOOD SPECIMENOrdering Facility: [facility] Address: [address] [place] [address] Performed By: #### 5 7021-8 ####[facility]CL[facility] [id number] [place] [address] [place] MCV (RBC) [Entitic vol] 92.3 fL Normal 80.0-100.0 C [facility] Comment on above: Order Comment: Speci men Type: BLOOD SPECIMENOrdering Facility: [facility] Address: [address] [place] [address] Performed By: #### 5 7021-8 ####[facility]IA [id number] [place] [address] [place] Monocytes (Bld) [#/Vol] 0.73 10*3/uL Normal <0.87 [facility] Comment on above: Order Comment: Speci men Type: BLOOD SPECIMENOrdering Facility: [facility] Address: [address] [place] [address] Performed By: #### 5 7021-8 ####[facility]IA [id number] [place] [address] [place] Monocytes/100 WBC (Bld) 12.0 % Normal [facility] Comment on above: Order Comment: Speci men Type: BLOOD SPECIMENOrdering Facility: [facility] Address: [address] [place] [address] Performed By: #### 5 7021-8 ####[facility]CL[facility] [id number] [place] [address] [place] Neutrophils (Bld) [#/Vol] 4.30 10*3/uL Normal 1.45-7.50 [facility] Comment on above: Order Comment: Speci men Type: BLOOD SPECIMENOrdering Facility: [facility] Address: [address] [place] [address] Performed By: #### 5 7021-8 ####[facility]CL[facility] [id number] [place] [address] [place] Neutrophils/100 WBC (Bld) 70.6 % Normal [facility] Comment on above: Order Comment: Speci men Type: BLOOD SPECIMENOrdering Facility: [facility] Address: [address] [place] [address] Performed By: #### 5 7021-8 ####[facility] [id number] [place] [address] [place] Nucleated RBC (Bld) [#/Vol] 10*3/uL Normal <0.01 [facility] Comment on above: Order Comment: Speci men Type: BLOOD SPECIMENOrdering Facility: [facility] Address: [address] [place] [address] Performed By: #### 5 7021-8 ####[facility] [id number] [place] [address] [place] Nucleated RBC/100 WBC (Bld) [Ratio] 0.0 /100 WBC Normal [facility] Comment on above: Order Comment: Speci men Type: BLOOD SPECIMENOrdering Facility: [facility] Address: [address] [place] [address] Performed By: #### 5 7021-8 ####[facility] [id number] [place] [id number] [place] Platelet mean volume (Bld) [Entitic vol] 12.2 fL Normal 9.0-12.7 [facility] Comment on above: Order Comment: Speci men Type: BLOOD SPECIMENOrdering Facility: [facility] Address: [address] [place] [address] Performed By: #### 5 7021-8 ####[facility] [id number] [place] [address] [place] Platelets (Bld) [#/Vol] 53 10*3/uL Low 150-400 [facility] Comment on above: Order Comment: Speci men Type: BLOOD SPECIMENOrdering Facility: [facility] Address: [address] [place] [address] Performed By: #### 5 7021-8 ####[facility] [id number] [place] [address] [place] RBC (Bld) [#/Vol] 2.48 10*6/uL Low 4.20-6.00 [facility] Comment on above: Order Comment: Speci men Type: BLOOD SPECIMENOrdering Facility: [facility] Address: [address] [place] [address] Performed By: #### 5 7021-8 ####[facility] [id number] [place] [address] [place] WBC (Bld) [#/Vol] 6.09 10*3/uL Normal 3.70-11.00 [facility] Comment on above: Order Comment: Speci men Type: BLOOD SPECIMENOrdering Facility: [facility] Address: [address] [place] [address] Performed By: #### 5 7021-8 ####[facility] [id number] [place] [address] [place] CNOVon 11-15-2024 CNOV Normal [facility] CONSULTon 11-15-2024 CONSULT Normal [facility] CONSULT PROGon 11-15-2024 CONSULT PROG Normal [facility] Fibrinogen PPP-mCncon 2024 Fibrinogen Coag (PPP) [Mass/Vol] 123 mg/dL Low 200-400 [facility] Comment on above: Order Comment: Speci men Type: BLOOD SPECIMENOrdering Facility: [facility] Address: [address] [place] [address] Performed By: #### 3 255-7, 60217-2 ####[facility] [id number] [address] [address] [place] Hepatic function 2000 panelo n 11-15-2024 Albumin [Mass/Vol] 2.8 g/dL Low 3.9-4.9 [facility] Comment on above: Order Comment: Speci men Type: BLOOD SPECIMENOrdering Facility: [facility] Address: [address] [place] [address] Performed By: #### 2 4325-3, 52855-4 ####[facility] [id number] [place] [address] [place] ALP [Catalytic activity/Vol] 277 U/L High 38-113 [facility] Comment on above: Order Comment: Speci men Type: BLOOD SPECIMENOrdering Facility: [facility] Address: [address] [place] [address] Performed By: #### 2 4325-3, 21022-9 ####[facility] [id number] [place] [address] [place] ALT [Catalytic activity/Vol] 36 U/L Normal 10-54 [facility] Comment on above: Order Comment: Speci men Type: BLOOD SPECIMENOrdering Facility: [facility] Address: [address] [place] [address] Performed By: #### 2 4325-3, 71345-9 ####[facility] [id number] [facility] [address] [address] [place] AST [Catalytic activity/Vol] 87 U/L High 14-40 [facility] Comment on above: Order Comment: Speci men Type: BLOOD SPECIMENOrdering Facility: [facility] Address: [address] [place] [address] Performed By: #### 2 4325-3, 25964-9 ####[facility] [id number] [place] [address] [place] Bilirubin [Mass/Vol] 1.6 mg/dL High 0.2-1.3 [facility] Comment on above: Order Comment: Speci men Type: BLOOD SPECIMENOrdering Facility: [facility] Address: [address] [place] [address] Performed By: #### 2 4325-3, 45842-7 ####[facility] [id number] [place] [address] [place] Bilirubin.conjugated [Mass/Vol] 0.9 mg/dL High <0.3 [facility] Comment on above: Order Comment: Speci men Type: BLOOD SPECIMENOrdering Facility: [facility] Address: [address] [place] [address] Performed By: #### 2 4325-3, 47965-9 ####[facility]IA [id number] [place] [address] [place] Protein [Mass/Vol] 5.4 g/dL Low 6.3-8.0 [facility] Comment on above: Order Comment: Speci men Type: BLOOD SPECIMENOrdering Facility: [facility] Address: [address] [place] [address] Performed By: #### 2 4325-3, 79691-2 ####[facility]IA [id number] [place] [address] [place] PT panel Coag (PPP)on 2024 INR Coag (PPP) [Relative time] 1.8 {INR} High 0.9-1.3 [facility] Comment on above: Order Comment: Speci men Type: BLOOD SPECIMENOrdering Facility: [facility] Address: [address] [place] [address] Result Comment: Sarah min K Antagonist (VKA) Therapeutic Range: INR 2 to 3 (Target INR of 2.5)Note: For patients treated with VKA drugs, such as warfarin, the [employer] 2012 Guideline recommends [...] al. Chest 2012, 141:7S-47SNishimnicolle RA, et al. [facility] 2017, 70: 252-289 Performed By: #### 3 255-7, 74324-5 ####[facility]IA [id number] [place] [address] [place] PT Coag (PPP) [Time] 18.9 s High 9.7-13.0 [facility] Comment on above: Order Comment: Speci men Type: BLOOD SPECIMENOrdering Facility: [facility] Address: [address] [place] [address] Performed By: #### 3 255-7, 57323-0 ####[facility] [id number] [place] [address] [place] Renal function 2000 panelon 11-15-2024 Albumin [Mass/Vol] 2.9 g/dL Low 3.9-4.9 [facility] Comment on above: Order Comment: Speci men Type: BLOOD SPECIMENOrdering Facility: [facility] Address: [address] [place] [address] Performed By: #### 2 4325-3, 12387-6 ####[facility]IA [id number] [place] [address] [place] Anion gap [Moles/Vol] 15 mmol/L Normal 8-15 [facility] Comment on above: Order Comment: Speci men Type: BLOOD SPECIMENOrdering Facility: [facility] Address: [address] [place] [id number] Performed By: #### 2 4325-3, 02812-4 ####[facility] [id number] [address] [address] [place] Calcium [Mass/Vol] 8.4 mg/dL Low 8.5-10.2 [facility] Comment on above: Order Comment: Speci men Type: BLOOD SPECIMENOrdering Facility: [facility] Address: [address] [place], [place] [address] Performed By: #### 2 432-3, 90299-3 ####[facility] [id number] [place] [address] [place] Chloride [Moles/Vol] 99 mmol/L Normal 98-107 [facility] Comment on above: Order Comment: Speci men Type: BLOOD SPECIMENOrdering Facility: [facility] Address: [address] [place] [address] Performed By: #### 2 4325-3, 98532-5 ####[facility] [id number] [place] [address] [place] CO2 [Moles/Vol] 14 mmol/L Low 22-30 [facility] Comment on above: Order Comment: Speci men Type: BLOOD SPECIMENOrdering Facility: [facility] Address: [address] [place], [place] [address] Performed By: #### 2 4324-3, 45457-9 ####[facility] [id number] [place] [address] [place] Creatinine [Mass/Vol] 0.80 mg/dL Normal 0.73-1.22 [facility] Comment on above: Order Comment: Speci men Type: BLOOD SPECIMENOrdering Facility: [facility] Address: [address] [place], [place] [address] Performed By: #### 2 432-3, 92780-2 ####[facility] [id number] [place] [address] [place] Creatinine and Glomerular filtration rate.predicted panel (S/P/Bld) 103 mL/min/1.73m??? Normal >=60 [facility] Comment on above: Order Comment: Ezekiel ramirez Type: BLOOD SPECIMENOrdering Facility: [facility] Address: [address] [place] [address] Result Comment: Patric mated Glomerular Filtration Rate [...] actual GFR. Performed By: #### 2 4325-3, 24650-7 ####[facility]IA [id number] [place] [address] [place] Glucose [Mass/Vol] 272 mg/dL High 74-99 [facility] Comment on above: Order Comment: Ezekiel ramirez Type: BLOOD SPECIMENOrdering Facility: [facility] Address: [address] [place] [address] Result Comment: The [employer] (ADA) provides guidance for cutoff [...] Standards of Medical Care in Diabetes 2016, [employer]. Diabetes Care. 2016.39(Suppl 1). Performed By: #### 2 4325-3, 74115-3 ####[facility] [id number] [address] [address] [place] Phosphate [Mass/Vol] 2.2 mg/dL Low 2.7-4.8 [facility] Comment on above: Order Comment: Speci men Type: BLOOD SPECIMENOrdering Facility: [facility] Address: [address] [place] [address] Performed By: #### 2 4325-3, 83135-5 ####[facility] [id number] [place] [address] [place] Potassium [Moles/Vol] 3.8 mmol/L Normal 3.7-5.1 [facility] Comment on above: Order Comment: Speci men Type: BLOOD SPECIMENOrdering Facility: [facility] Address: [address] [place] [address] Performed By: #### 2 4325-3, 49786-8 ####[facility] [id number] [place] [address] [place] Sodium [Moles/Vol] 128 mmol/L Low 136-144 [facility] Comment on above: Order Comment: Speci men Type: BLOOD SPECIMENOrdering Facility: [facility] Address: [address] [place] [address] Performed By: #### 2 4325-3, 86413-2 ####[facility] [id number] [place] [address] [place] Urea nitrogen [Mass/Vol] 11 mg/dL Normal 9-24 [facility] Comment on above: Order Comment: Speci men Type: BLOOD SPECIMENOrdering Facility: [facility] Address: [address] [place] [address] Performed By: #### 2 4325-3, 87538-2 ####[facility] [id number] [address] [address] [place] SEPSIS LACTATEon 11-15-2024 Lactate [Moles/Vol] 3.2 mmol/L High <=2.0 [facility] Comment on above: Order Comment: Speci men Type: BLOOD SPECIMENOrdering Facility: [facility] Address: [address] [place] [address] Performed By: #### S LACT ####[facility] [id number] [address] [address] [place] SOCIAL WORKon 11-15-2024 SOCIAL WORK Normal [facility] THERAPY NTon 11-15-2024 THERAPY NT Normal [facility] THERAPY NT Normal [facility] TYPE + SCREENon 11-15-2024 ABO O Normal [facility] Comment on above: Order Comment: Speci men Type: BLOOD SPECIMENOrdering Facility: [facility] Address: [address] [place] [address] Performed By: #### T SCR ####[facility] [id number] [place] [address] [place] Rh Nom (Bld) Positive Normal [facility] Comment on above: Order Comment: Speci men Type: BLOOD SPECIMENOrdering Facility: [facility] Address: [address] [place] [address] Performed By: #### T SCR ####[facility] [id number] [place] [address] [place] TYPE AND SCREEN EXPIRATION 11/18/2024 23:59 Normal [facility] Comment on above: Order Comment: Speci men Type: BLOOD SPECIMENOrdering Facility: [facility] Address: [address] [place] [address] Performed By: #### T SCR ####[facility]CL[facility] [id number] [place] [address] [place] US ASCITES SURVEYon 11-16-19 US ASCITES SURVEY Normal [facility] Basic metabolic 2000 panelon 11-14-2024 Anion gap [Moles/Vol] 11 mmol/L Normal 8-15 [facility] Comment on above: Order Comment: Speci men Type: BLOOD SPECIMENOrdering Facility: [facility] Address: [address] [place] [address] Performed By: #### 2 4321-2, 46129-5, 2776-08, ####[facility] [id number] [facility] [address] [place] [address] [place] Calcium [Mass/Vol] 8.9 mg/dL Normal 8.5-10.2 [facility] Comment on above: Order Comment: Speci men Type: BLOOD SPECIMENOrdering Facility: [facility] Address: [address] [place] [address] Performed By: #### 2 4321-2, 50639-8, 2776-08, ####[facility]IA [id number] [facility] [address] [address] [place] Chloride [Moles/Vol] 99 mmol/L Normal 98-107 [facility] Comment on above: Order Comment: Speci men Type: BLOOD SPECIMENOrdering Facility: [facility] Address: [address] [place] [address] Performed By: #### 2 4321-2, 38905-4, 2776-08, ####[facility]IA [id number] [facility] [address] [address] [place] CO2 [Moles/Vol] 17 mmol/L Low 22-30 [facility] Comment on above: Order Comment: Speci men Type: BLOOD SPECIMENOrdering Facility: [facility] Address: [address] [place] [address] Performed By: #### 2 4321-2, 15404-6, 2776-08, ####[facility]CL[facility] [id number] [facility] [address] [place] [address] [place] Creatinine [Mass/Vol] 0.89 mg/dL Normal 0.73-1.22 [facility] Comment on above: Order Comment: Ezekiel ramirez Type: BLOOD SPECIMENOrdering Facility: [facility] Address: [address] [place] [phone] Performed By: #### 2 4321-2, 20661-4, 2777-, ####[facility]CL[facility] [id number] [address] [address] [place] Creatinine and Glomerular filtration rate.predicted panel (S/P/Bld) 99 mL/min/1.73m??? Normal >=60 [facility] Comment on above: Order Comment: Ezekiel james Type: BLOOD SPECIMENOrdering Facility: [facility] Address: [address] [place] [address] Result Comment: Patric mated Glomerular Filtration Rate [...] actual GFR. Performed By: #### 2 4321-2, 78321-0, 2777-, ####[facility] [id number] [address] [address] [place] Glucose [Mass/Vol] 250 mg/dL High 74-99 [facility] Comment on above: Order Comment: Ezekiel ramirez Type: BLOOD SPECIMENOrdering Facility: [facility] Address: [address] [place] [phone] Result Comment: The [place] Diabetes Association (ADA) provides guidance for cutoff [...] Standards of Medical Care in Diabetes 2016, [place] Diabetes Association. Diabetes Care. 2016.39(Suppl 1). Performed By: #### 2 4321-2, 44036-2, 2776-08, ####[facility]CL[facility] [id number] [address] [address] [place] Potassium [Moles/Vol] 3.6 mmol/L Low 3.7-5.1 [facility] Comment on above: Order Comment: Speci men Type: BLOOD SPECIMENOrdering Facility: [facility] Address: [address] [place] [address] Performed By: #### 2 4321-2, 66954-6, 2776-08, ####[facility] LABIA [id number] [place] [address] [place] Sodium [Moles/Vol] 127 mmol/L Low 136-144 [facility] Comment on above: Order Comment: Speci men Type: BLOOD SPECIMENOrdering Facility: [facility] Address: [address] [place] [address] Performed By: #### 2 4321-2, 22868-4, 2776-08, ####[facility] LABIA [id number] [place] [address] [place] Urea nitrogen [Mass/Vol] 14 mg/dL Normal 9-24 [facility] Comment on above: Order Comment: Speci men Type: BLOOD SPECIMENOrdering Facility: [facility] Address: [address] [place], [place] [address] Performed By: #### 2 4321-2, 07390-3, 2776-08, ####[facility] LABIA [id number] [address] [address] [place] CBC W Auto Differential pane l (Bld)on 11-14-2024 Basophils (Bld) [#/Vol] 0.04 10*3/uL Normal <0.11 [facility] Comment on above: Order Comment: Speci men Type: BLOOD SPECIMENOrdering Facility: [facility] Address: [address] [place] [address] Performed By: #### 5 7021-8 ####[facility]CL[facility] [id number] [place] [address] [place] Basophils/100 WBC (Bld) 0.7 % Normal [facility] Comment on above: Order Comment: Speci men Type: BLOOD SPECIMENOrdering Facility: [facility] Address: [address] [place] [address] Performed By: #### 5 7021-8 ####[facility] [id number] [place] [address] [place] Differential cell count method Nom (Bld) Auto Normal [facility] Comment on above: Order Comment: Speci men Type: BLOOD SPECIMENOrdering Facility: [facility] Address: [address] [place] [address] Performed By: #### 5 7021-8 ####[facility] [id number] [place] [address] [place] Eosinophils (Bld) [#/Vol] 0.23 10*3/uL Normal <0.46 [facility] Comment on above: Order Comment: Speci men Type: BLOOD SPECIMENOrdering Facility: [facility] Address: [address] [place] [address] Performed By: #### 5 7021-8 ####[facility] [id number] [place] [address] [place] Eosinophils/100 WBC (Bld) 4.1 % Normal [facility] Comment on above: Order Comment: Speci men Type: BLOOD SPECIMENOrdering Facility: [facility] Address: [address] [place] [address] Performed By: #### 5 7021-8 ####[facility] [id number] [place] [address] [place] Erythrocyte distribution width (RBC) [Ratio] 16.3 % High 11.5-15.0 [facility] Comment on above: Order Comment: Speci men Type: BLOOD SPECIMENOrdering Facility: [facility] Address: [address] [place] [address] Performed By: #### 5 7021-8 ####[facility] [id number] [address], [place] [address] [place] Hematocrit (Bld) [Volume fraction] 22.7 % Low 39.0-51.0 [facility] Comment on above: Order Comment: Speci men Type: BLOOD SPECIMENOrdering Facility: [facility] Address: [address] [place] [address] Performed By: #### 5 7021-8 ####[facility]IA [id number] [place] [address] [place] Hemoglobin (Bld) [Mass/Vol] 7.9 g/dL Low 13.0-17.0 [facility] Comment on above: Order Comment: Speci men Type: BLOOD SPECIMENOrdering Facility: [facility] Address: [address] [place] [address] Performed By: #### 5 7021-8 ####[facility] [id number] [place] [address] [place] Immature granulocytes (Bld) [#/Vol] 0.04 10*3/uL Normal <0.10 [facility] Comment on above: Order Comment: Speci men Type: BLOOD SPECIMENOrdering Facility: [facility] Address: [address] [place] [address] Performed By: #### 5 7021-8 ####[facility]IA [id number] [place] [address] [place] Immature granulocytes/100 WBC (Bld) 0.7 % Normal [facility] Comment on above: Order Comment: Speci men Type: BLOOD SPECIMENOrdering Facility: [facility] Address: [address] [place] [address] Performed By: #### 5 7021-8 ####[facility] [id number] [place] [address] [place] Lymphocytes (Bld) [#/Vol] 0.72 10*3/uL Low 1.00-4.00 [facility] Comment on above: Order Comment: Speci men Type: BLOOD SPECIMENOrdering Facility: [facility] Address: [address] [place] [address] Performed By: #### 5 7021-8 ####[facility]CL[facility] [id number] [place] [address] [place] Lymphocytes/100 WBC (Bld) 12.8 % Normal [facility] Comment on above: Order Comment: Speci men Type: BLOOD SPECIMENOrdering Facility: [facility] Address: [address] [place] [address] Performed By: #### 5 7021-8 ####[facility] [id number] [place] [address] [place] MCH (RBC) [Entitic mass] 31.7 pg Normal 26.0-34.0 [facility] Comment on above: Order Comment: Speci men Type: BLOOD SPECIMENOrdering Facility: [facility] Address: [address] [place] [address] Performed By: #### 5 7021-8 ####[facility] [id number] [place] [address] [place] MCHC (RBC) [Mass/Vol] 34.8 g/dL Normal 30.5-36.0 [facility] Comment on above: Order Comment: Speci men Type: BLOOD SPECIMENOrdering Facility: [facility] Address: [address] [place] [address] Performed By: #### 5 7021-8 ####[facility] [id number] [place] [address] [place] MCV (RBC) [Entitic vol] 91.2 fL Normal 80.0-100.0 [facility] Comment on above: Order Comment: Speci men Type: BLOOD SPECIMENOrdering Facility: [facility] Address: [address] [place] [address] Performed By: #### 5 7021-8 ####[facility] [id number] [address], [place] [address] [place] Monocytes (Bld) [#/Vol] 0.68 10*3/uL Normal <0.87 [facility] Comment on above: Order Comment: Speci men Type: BLOOD SPECIMENOrdering Facility: [facility] Address: [address] [place] [address] Performed By: #### 5 7021-8 ####[facility] [id number] [place] [address] [place] Monocytes/100 WBC (Bld) 12.1 % Normal [facility] Comment on above: Order Comment: Speci men Type: BLOOD SPECIMENOrdering Facility: [facility] Address: [address] [place] [address] Performed By: #### 5 7021-8 ####[facility] [id number] [place] [address] [place] Neutrophils (Bld) [#/Vol] 3.92 10*3/uL Normal 1.45-7.50 [facility] Comment on above: Order Comment: Speci men Type: BLOOD SPECIMENOrdering Facility: [facility] Address: [address] [place] [address] Performed By: #### 5 7021-8 ####[facility] LABCLIA [id number] [place] [id number] [place] Neutrophils/100 WBC (Bld) 69.6 % Normal [facility] Comment on above: Order Comment: Speci men Type: BLOOD SPECIMENOrdering Facility: [facility] Address: [address] [place] [address] Performed By: #### 5 7021-8 ####[facility] LABCLIA [id number] [place] [address] [place] Nucleated RBC (Bld) [#/Vol] 10*3/uL Normal <0.01 [facility] Comment on above: Order Comment: Speci men Type: BLOOD SPECIMENOrdering Facility: [facility] Address: [address] [place] [address] Performed By: #### 5 7021-8 ####[facility] LABCLIA [id number] [place] [address] [place] Nucleated RBC/100 WBC (Bld) [Ratio] 0.0 /100 WBC Normal [facility] Comment on above: Order Comment: Speci men Type: BLOOD SPECIMENOrdering Facility: [facility] Address: [address] [place] [address] Performed By: #### 5 7021-8 ####[facility] LABCLIA [id number] [place] [address] [place] Platelet mean volume (Bld) [Entitic vol] 12.1 fL Normal 9.0-12.7 [facility] Comment on above: Order Comment: Speci men Type: BLOOD SPECIMENOrdering Facility: [facility] Address: [address] [place] [address] Performed By: #### 5 7021-8 ####[facility] LABCLIA [id number] [place] [address] [place] Platelets (Bld) [#/Vol] 43 10*3/uL Low 150-400 [facility] Comment on above: Order Comment: Speci men Type: BLOOD SPECIMENOrdering Facility: [facility] Address: [address] [place] [address] Result Comment: Resu lts checked and verified.No clot detected. Performed By: #### 5 7021-8 ####[facility] LABIA [id number] [place] [address] [place] RBC (Bld) [#/Vol] 2.49 10*6/uL Low 4.20-6.00 [facility] Comment on above: Order Comment: Speci men Type: BLOOD SPECIMENOrdering Facility: [facility] Address: [address] [place] [address] Performed By: #### 5 7021-8 ####[facility] [id number] [place] [address] [place] WBC (Bld) [#/Vol] 5.63 10*3/uL Normal 3.70-11.00 [facility] Comment on above: Order Comment: Speci men Type: BLOOD SPECIMENOrdering Facility: [facility] Address: [address] [place] [address] Performed By: #### 5 7021-8 ####[facility] [id number] [place] [address] [place] Fibrinogen PPP-mCncon 2024 Fibrinogen Coag (PPP) [Mass/Vol] 119 mg/dL Low 200-400 [facility] Comment on above: Order Comment: Speci men Type: BLOOD SPECIMENOrdering Facility: [facility] Address: [address] [place] [address] Performed By: #### 3 255-7, 91207-7 ####[facility] [id number] [place] [address] [place] Hepatic function 2000 panelo n 11-14-2024 Albumin [Mass/Vol] 2.8 g/dL Low 3.9-4.9 [facility] Comment on above: Order Comment: Speci men Type: BLOOD SPECIMENOrdering Facility: [facility] Address: [address] [place], [place] [address] Performed By: #### 2 4321-2, 53895-6, 2776-08, ####[facility] LABCLIA [id number] [address] [address] [place] ALP [Catalytic activity/Vol] 248 U/L High 38-113 [facility] Comment on above: Order Comment: Speci men Type: BLOOD SPECIMENOrdering Facility: [facility] Address: [address] [place], [place] [address] Performed By: #### 2 4321-2, 00355-0, 2776-, ####[facility] LABCLIA [id number] [place] [address] [place] ALT [Catalytic activity/Vol] 29 U/L Normal 10-54 [facility] Comment on above: Order Comment: Speci men Type: BLOOD SPECIMENOrdering Facility: [facility] Address: [address] [place] [address] Performed By: #### 2 4321-2, 53399-0, 2776-08, ####[facility] LABIA [id number] [place] [address] [place] AST [Catalytic activity/Vol] 62 U/L High 14-40 [facility] Comment on above: Order Comment: Speci men Type: BLOOD SPECIMENOrdering Facility: [facility] Address: [address] [place], [place] [address] Performed By: #### 2 4321-2, 10052-6, 2776-08, ####[facility] LABIA [id number] [place] [address] [place] Bilirubin [Mass/Vol] 1.7 mg/dL High 0.2-1.3 [facility] Comment on above: Order Comment: Speci men Type: BLOOD SPECIMENOrdering Facility: [facility] Address: [address] [place], [place] [address] Performed By: #### 2 4321-2, 45124-1, 2776-08, ####[facility] LABCLIA [id number] [address] [address] [place] Bilirubin.conjugated [Mass/Vol] 1.0 mg/dL High <0.3 [facility] Comment on above: Order Comment: Speci men Type: BLOOD SPECIMENOrdering Facility: [facility] Address: [address] [place], [place] [address] Performed By: #### 2 4321-2, 11220-8, 2776-08, ####[facility] LABIA [id number] [place] [address] [place] Protein [Mass/Vol] 5.4 g/dL Low 6.3-8.0 [facility] Comment on above: Order Comment: Speci men Type: BLOOD SPECIMENOrdering Facility: [facility] Address: [address] [place] [address] Performed By: #### 2 4321-2, 85388-1, 2776-08, ####[facility] LABIA [id number] [place] [address] [place] Magnesium SerPl-mCncon 11-14 Magnesium [Mass/Vol] 1.6 mg/dL Low 1.7-2.3 [facility] Comment on above: Order Comment: Speci men Type: BLOOD SPECIMENOrdering Facility: [facility] Address: [address] [place], [place] [address] Performed By: #### 2 4321-2, 95486-1, 2776-08, ####[facility]CL[facility] [id number] [address] [address] [place] PT panel Coag (PPP)on 2024 INR Coag (PPP) [Relative time] 1.8 {INR} High 0.9-1.3 [facility] Comment on above: Order Comment: Ezekiel ramirez Type: BLOOD SPECIMENOrdering Facility: [facility] Address: [address] [place] [address] Result Comment: Sarah min K Antagonist (VKA) Therapeutic Range: INR 2 to 3 (Target INR of 2.5)Note: For patients treated with VKA drugs, such as warfarin, the [employer] 2012 Guideline recommends [...] al. Chest 2012, 141:7S-47SNishbethel RA, et al. [facility] 2017, 70: 252-289 Performed By: #### 3 255-7, 15591-2 ####[facility] [id number] [place] [address] [place] PT Coag (PPP) [Time] 19.2 s High 9.7-13.0 [facility] Comment on above: Order Comment: Ezekiel ramirez Type: BLOOD SPECIMENOrdering Facility: [facility] Address: [address] [place] [address] Performed By: #### 3 255-7, 42236-3 ####[facility] [id number] [place] [address] [place] Phosphate SerPl-mCncon 11-14 Phosphate [Mass/Vol] 1.9 mg/dL Low 2.7-4.8 [facility] Comment on above: Order Comment: Ezekiel ramirez Type: BLOOD SPECIMENOrdering Facility: [facility] Address: [address] [place] [address] Performed By: #### 2 4321-2, 66583-8, 2777-1, 75639-1 ####[facility]CLIA [id number] [place] [address] [place] URINALYSIS, REFLEX MICROSCOP ICon 11-14-2024 Bacteria LM.HPF (Urine sed) [#/Area] Negative Normal Negative [facility] Comment on above: Order Comment: Speci men Type: URINE SPECIMENOrdering Facility: [facility] Address: [address] [place] [address] Performed By: #### L [id number] ####[facility] LABIA [id number] [place] [address] [place] Bilirubin Ql (U) 1+ Abnormal Negative [facility] Comment on above: Order Comment: Speci men Type: URINE SPECIMENOrdering Facility: [facility] Address: [address] [place] [address] Result Comment: Sugg est correlation with clinical findings and serum bilirubin if clinically indicated. Performed By: #### L [id number] ####[facility] LABIA [id number] [place] [address] [place] Clarity (Unsp spec) Cloudy Abnormal Clear [facility] Comment on above: Order Comment: Speci men Type: URINE SPECIMENOrdering Facility: [facility] Address: [address] [place] [address] Performed By: #### L [id number] ####[facility] LABCLIA [id number] [place] [address] [place] Color (U) Erie Abnormal Yellow [facility] Comment on above: Order Comment: Speci men Type: URINE SPECIMENOrdering Facility: [facility] Address: [address] [place] [address] Performed By: #### L [id number] ####[facility]CLIA [id number] [address] [place] Epithelial cells LM.HPF (Urine sed) [#/Area] None Seen Normal [facility] Comment on above: Order Comment: Speci men Type: URINE SPECIMENOrdering Facility: [facility] Address: [address] [place] [address] Performed By: #### L [id number] ####[facility]CLIA [id number] [address] [place] Glucose Test strip (U) [Mass/Vol] Negative Normal Negative [facility] Comment on above: Order Comment: Speci men Type: URINE SPECIMENOrdering Facility: [facility] Address: [address] [place] [address] Performed By: #### L [id number] ####[facility]CLIA [id number] [place] [address] [place] Hemoglobin Ql (U) 3+ Abnormal Negative [facility] Comment on above: Order Comment: Speci men Type: URINE SPECIMENOrdering Facility: [facility] Address: [address] [place] [address] Performed By: #### L [id number] ####[facility]CL[facility] [id number] [place] [address] [place] Hyaline casts (Urine sed) [#/Area] 0 /[LPF] Normal 0 /LPF [facility] Comment on above: Order Comment: Speci men Type: URINE SPECIMENOrdering Facility: [facility] Address: [address] [place] [address] Performed By: #### L [id number] ####[facility]CLIA [id number] [address] [place] Ketones Ql (U) Negative Normal Negative [facility] Comment on above: Order Comment: Speci men Type: URINE SPECIMENOrdering Facility: [facility] Address: [address] [place] [address] Performed By: #### L [id number] ####[facility]CLIA [id number] [place] [address] [place] Leukocyte esterase Test strip Ql (U) 3+ Abnormal Negative [facility] Comment on above: Order Comment: Speci men Type: URINE SPECIMENOrdering Facility: [facility] Address: [address] [place] [address] Performed By: #### L [id number] ####[facility]CLIA [id number] [place] [address] [place] Nitrite Ql (U) Negative Normal Negative [facility] Comment on above: Order Comment: Speci men Type: URINE SPECIMENOrdering Facility: [facility] Address: [address] [place] [address] Performed By: #### L [id number] ####[facility] LABIA [id number] [place] [address] [place] pH (U) 6.0 [pH] Normal <8.5 [facility] Comment on above: Order Comment: Speci men Type: URINE SPECIMENOrdering Facility: [facility] Address: [address] [place] [address] Performed By: #### L [id number] ####[facility] LABIA [id number] [place] [address] [place] Protein (U) [Mass/Vol] 2+ Abnormal Negative [facility] Comment on above: Order Comment: Speci men Type: URINE SPECIMENOrdering Facility: [facility] Address: [address] [place] [address] Performed By: #### L [id number] ####[facility] LABIA [id number] [place] [address] [place] RBC LM.HPF (Urine sed) [#/Area] /[HPF] Abnormal 0-2 /HPF [facility] Comment on above: Order Comment: Speci men Type: URINE SPECIMENOrdering Facility: [facility] Address: [address] [place] [address] Performed By: #### L [id number] ####[facility] LABIA [id number] [place] [address] [place] [facility] Specific gravity (U) [Rel density] 1.017 Normal 1.005-1.030 [facility] Comment on above: Order Comment: Speci men Type: URINE SPECIMENOrdering Facility: [facility] Address: [address] [place] [address] Performed By: #### L [id number] ####[facility] LABIA [id number] [place] [address] [place] Urobilinogen Ql (U) 0.2 EU/dL Normal 0.2-1.0 EU/dL [facility] Comment on above: Order Comment: Speci men Type: URINE SPECIMENOrdering Facility: [facility] Address: [address] [place] [address] Performed By: #### L [id number] ####[facility] LABIA [id number] [place] [address] [place] WBC LM.HPF (Urine sed) [#/Area] /[HPF] Abnormal 0-5 /HPF [facility] Comment on above: Order Comment: Speci men Type: URINE SPECIMENOrdering Facility: [facility] Address: [address] [place] [address] Performed By: #### L [id number] ####[facility] LABIA [id number] [place] [address] [place] Yeast.budding LM.HPF (Urine sed) [#/Area] Present Abnormal None Seen [facility] Comment on above: Order Comment: Speci men Type: URINE SPECIMENOrdering Facility: [facility] Address: [address] [place] [address] Performed By: #### L [id number] ####[facility] LABIA [id number] [place] [address] [place] 25(OH)D3 [facility]-ncon 2024 25-hydroxyvitamin D3 [Mass/Vol] 16.2 ng/mL Low 31.0-80.0 [facility] Comment on above: Order Comment: Speci men Type: BLOOD SPECIMENOrdering Facility: [facility] Address: [address] [place] [address] Performed By: #### 7 852-7, MEASLG, VZVG2, 1988- ####[facility] [id number] [place] [address] [place] A-Tocopherol Vit E [facility]-n con 11-13-2024 Alpha tocopherol [Mass/Vol] 3.3 mg/L Low 6.0-23.0 [facility] Comment on above: Order Comment: Speci men Type: BLOOD SPECIMENOrdering Facility: [facility] Address: [address] [place] [address] Performed By: #### 2 923-1, 1823-4 ####[facility] [id number] [place] [address] [place] ALPHA-1 ANTITRYPSIN GENOon 0 11-13-2024 HA1AT REVIEWED BY Michelle [facility] Comment on above: Order Comment: Speci men Type: BLOOD SPECIMENOrdering Facility: [facility] Address: [address] [place] [address] Result Comment: Alph a-1 Antitrypsin GenotypingLaboratory Accession Number: [id number]:No Variant Detected in SERPINA1 (PI*MM)Interpretation:DNA testing indicates [...] the two mostcommon pathogenic variants: S (c.863A>T, p.Baq552Dxo, g.92492226), Z(c.1096G>A, p.Irq023Jvt, g.42481845), and the rarer variants: F(c.739C>T, p.Rps273Lrn, g.61755601), I (c.187C>T, p.Bbf44Kxr,g.31608002).Limitations:This Laboratory Developed Test (LDT) is designed to [...] was developed and its performance characteristics determinedby [facility]'s Pathology and Laboratory Medicine Department. Ithas not been cleared or approved by the FDA. [facility]'s[facility] and [facility] Medicine Department is regulated under CLIAas certified to perform high-complexity testing. This test is used forclinical purposes. It should not be regarded as investigational or forresearch.Test performed at [facility], [address] [place], [id number]. CLIA Number: [id number]:1) Kait HIRSCH, Samir G, Essence ML, Ilan M, Kai CE, K,Jadyn DK, Princess SL, Suman GOMEZ, Ivania MARIE, Haider Guillory, Renée Oliveira.The Diagnosis and Management of Alpha-1 Antritrypsin Deficiency inthe Adult. Chronic Obstr Pulm Dis. 2016 Jan 07;3:668-682.2) Renee JA, Linsey ON, Rachele ER, Khushi DG. a1-Antitrypsinphenotypes and associated serum protein concentrations in a largeclinical population. Chest.2013 Nov;143(4):1000-8.3) Elmo A, Toña NA, Brad CR, Jennifer FJ, Salvador SJ, Nicole. Molecular characterisation of three ntbdd-2-baxxbkvanpe deficiencyvariants: proteinase inhibitor (Pi) nullcardiff (Qvn915----Ojm);PiMmalton (Iyl20----govpfqrf) and PiI (Knn10----Qnh). Hum Trisha. 1988Dec;84(1):55-8.4) Flor WHITFIELD and Kait HIRSCH. Clinical practice.Alpha1-antitrypsin deficiency. N Engl J Med. 2008;360(94)6515-11.5) Margot BETANCOURT, Kwame F, Prakash HIRSCH. The significance of the F variantof fwvuv-0-pzqwjrfiwbr and unique case report of a PiFF homozygote.[facility] Pulm Med. 2014 Mar 10;14:132.6) Ivania MARIE, Elena SHETTY, and Jaziel Carlson. Alpha-1 AntitrypsinDeficiency. 2005May 30 [Updated 2017 August 22]. In: Juanito HIRSCH, Barbara, Nemesio TO, et al., editors. GeneReviews [Internet]. [place] ([place]):[facility]; 7525-9486. Available from:http://www.ncbi.nlm.nih.gov/books/ZKU1290/Interpretation performed at remote location (R0A1) by Fifi España MD Performed By: #### H A1AT ####[facility] LIMSCLIA [id number] [place] [address] [place] ANES POSTPROC EVALon 025 [address]ES POSTPROC EVAL Normal [facility] ANES PRE-OPon 11-13-2024 ANES PRE-OP Normal [facility] Alpha tocopherol [Mass/Vol]o n 11-13-2024 Beta+gamma tocopherol [Mass/Vol] 0.6 mg/L Normal 0.3-3.2 [facility] Comment on above: Order Comment: Speci men Type: BLOOD SPECIMENOrdering Facility: [facility] Address: [address] [place] [address] Result Comment: This test was developed, and its performance characteristics determined by the [facility] Department of Pathology and Laboratory Medicine. It has not been cleared or approved by the FDA. The [facility] Department of Pathology and Laboratory Medicine is regulated under CLIA as qualified to perform high-complexity testing. This test is used for clinical purposes. It should not be regarded as investigational or for research. Performed By: #### 2 923-1, 1823-4 ####[facility] LABCL[facility] [id number] [place] [address] [place] Basic metabolic 2000 panelon 11-13-2024 Anion gap [Moles/Vol] 9 mmol/L Normal 8-15 [facility] Comment on above: Order Comment: Speci men Type: BLOOD SPECIMENOrdering Facility: [facility] Address: [address] [place] [address] Performed By: #### 2 4321-2, 55592-7, 46437-4, 33082-2 ####[facility] LABCLIA [id number] [place] [address] [place] Calcium [Mass/Vol] 9.1 mg/dL Normal 8.5-10.2 [facility] Comment on above: Order Comment: Speci men Type: BLOOD SPECIMENOrdering Facility: [facility] Address: [address] [place] [address] Performed By: #### 2 4321-2, 66941-3, 59705-5, 78644-1 ####[facility] LABCL[facility] [id number] [place] [address] [place] Chloride [Moles/Vol] 99 mmol/L Normal 98-107 [facility] Comment on above: Order Comment: Speci men Type: BLOOD SPECIMENOrdering Facility: [facility] Address: [address] [place] [address] Performed By: #### 2 4321-2, 53124-8, 58360-6, 08442-4 ####[facility] LABCLIA [id number] [place] [address] [place] CO2 [Moles/Vol] 16 mmol/L Low 22-30 [facility] Comment on above: Order Comment: Speci men Type: BLOOD SPECIMENOrdering Facility: [facility] Address: [address] [place] [address] Performed By: #### 2 4321-2, 11962-4, 29208-9, 60081-7 ####[facility] LABCLIA [id number] [place] [address] [place] Creatinine [Mass/Vol] 1.10 mg/dL Normal 0.73-1.22 [facility] Comment on above: Order Comment: Speci men Type: BLOOD SPECIMENOrdering Facility: [facility] Address: [address] [place] [address] Performed By: #### 2 4321-2, 43905-4, 85116-4, 64844-7 ####[facility] LABCLIA [id number] [place] [address] [place] Creatinine and Glomerular filtration rate.predicted panel (S/P/Bld) 78 mL/min/1.73m??? Normal >=60 [facility] Comment on above: Order Comment: Ezekiel ramirez Type: BLOOD SPECIMENOrdering Facility: [facility] Address: [address] [place] [address] Result Comment: Patric mated Glomerular Filtration Rate [...] actual GFR. Performed By: #### 2 4321-2, 88486-7, 01952-8, 97489-5 ####[facility] LABCLIA [id number] [place] [address] [place] Glucose [Mass/Vol] 278 mg/dL High 74-99 [facility] Comment on above: Order Comment: Ezekiel ramirez Type: BLOOD SPECIMENOrdering Facility: [facility] Address: [address] [place] [address] Result Comment: The [place] [employer] (ADA) provides guidance for cutoff [...] Standards of Medical Care in Diabetes 2016, [place] [employer]. Diabetes Care. 2016.39(Suppl 1). Performed By: #### 2 4321-2, 08397-2, 61296-0, 38214-7 ####[facility] LABCLIA [id number] [place] [address] [place] Potassium [Moles/Vol] 4.1 mmol/L Normal 3.7-5.1 [facility] Comment on above: Order Comment: Speci men Type: BLOOD SPECIMENOrdering Facility: [facility] Address: [address] [place] [address] Performed By: #### 2 4321-2, 22649-3, 05323-0, 90626-5 ####[facility] LABCLIA [id number] [place] [address] [place] Sodium [Moles/Vol] 124 mmol/L Low 136-144 [facility] Comment on above: Order Comment: Speci men Type: BLOOD SPECIMENOrdering Facility: [facility] Address: [address] [place] [address] Performed By: #### 2 4321-2, 17404-9, 33502-6, 74738-1 ####[facility] LABCLIA [id number] [place] [address] [place] Urea nitrogen [Mass/Vol] 20 mg/dL Normal 9-24 [facility] Comment on above: Order Comment: Speci men Type: BLOOD SPECIMENOrdering Facility: [facility] Address: [address] [place] [address] Performed By: #### 2 4321-2, 88546-9, 22794-8, 06632-1 ####[facility] LABCLIA [id number] [place] [address] [place] CBC W Auto Differential pane l (Bld)on 11-13-2024 Basophils (Bld) [#/Vol] 10*3/uL Normal <0.11 C [facility] Comment on above: Order Comment: Speci men Type: BLOOD SPECIMENOrdering Facility: [facility] Address: [address] [place] [address] Performed By: #### 5 7021-8 ####[facility] LABIA [id number] [place] [address] [place] Basophils/100 WBC (Bld) 0.4 % Normal C [facility] Comment on above: Order Comment: Speci men Type: BLOOD SPECIMENOrdering Facility: [facility] Address: [address] [place] [address] Performed By: #### 5 7021-8 ####[facility] LABCLIA [id number] [place] [address] [place] Differential cell count method Nom (Bld) Auto Normal [facility] Comment on above: Order Comment: Speci men Type: BLOOD SPECIMENOrdering Facility: [facility] Address: [address] [place] [address] Performed By: #### 5 7021-8 ####[facility] LABCLIA [id number] [place] [address] [place] Eosinophils (Bld) [#/Vol] 0.18 10*3/uL Normal <0.46 [facility] Comment on above: Order Comment: Speci men Type: BLOOD SPECIMENOrdering Facility: [facility] Address: [address] [place] [address] Performed By: #### 5 7021-8 ####[facility] LABCLIA [id number] [place] [address] [place] Eosinophils/100 WBC (Bld) 3.3 % Normal [facility] Comment on above: Order Comment: Speci men Type: BLOOD SPECIMENOrdering Facility: [facility] Address: [address] [place] [address] Performed By: #### 5 7021-8 ####[facility] LABCLIA [id number] [place] [address] [place] Erythrocyte distribution width (RBC) [Ratio] 17.0 % High 11.5-15.0 [facility] Comment on above: Order Comment: Speci men Type: BLOOD SPECIMENOrdering Facility: [facility] Address: [address] [place] [address] Performed By: #### 5 7021-8 ####[facility] LABCLIA [id number] [place] [address] [place] Hematocrit (Bld) [Volume fraction] 21.6 % Low 39.0-51.0 [facility] Comment on above: Order Comment: Speci men Type: BLOOD SPECIMENOrdering Facility: [facility] Address: [address] [place] [address] Performed By: #### 5 7021-8 ####[facility]IA [id number] [place] [address] [place] Hemoglobin (Bld) [Mass/Vol] 7.4 g/dL Low 13.0-17.0 [facility] Comment on above: Order Comment: Speci men Type: BLOOD SPECIMENOrdering Facility: [facility] Address: [address] [place] [address] Performed By: #### 5 7021-8 ####[facility]IA [id number] [place] [address] [place] Immature granulocytes (Bld) [#/Vol] 0.04 10*3/uL Normal <0.10 [facility] Comment on above: Order Comment: Speci men Type: BLOOD SPECIMENOrdering Facility: [facility] Address: [address] [place] [address] Performed By: #### 5 7021-8 ####[facility] [id number] [place] [address] [place] Immature granulocytes/100 WBC (Bld) 0.7 % Normal [facility] Comment on above: Order Comment: Speci men Type: BLOOD SPECIMENOrdering Facility: [facility] Address: [address] [place] [address] Performed By: #### 5 7021-8 ####[facility] [id number] [place] [address] [place] Lymphocytes (Bld) [#/Vol] 0.64 10*3/uL Low 1.00-4.00 [facility] Comment on above: Order Comment: Speci men Type: BLOOD SPECIMENOrdering Facility: [facility] Address: [address] [place] [address] Performed By: #### 5 7021-8 ####[facility]IA [id number] [place] [address] [place] Lymphocytes/100 WBC (Bld) 11.6 % Normal [facility] Comment on above: Order Comment: Speci men Type: BLOOD SPECIMENOrdering Facility: [facility] Address: [address] [place] [address] Performed By: #### 5 7021-8 ####[facility]IA [id number] [place] [address] [place] MCH (RBC) [Entitic mass] 31.8 pg Normal 26.0-34.0 [facility] Comment on above: Order Comment: Speci men Type: BLOOD SPECIMENOrdering Facility: [facility] Address: [address] [place] [address] Performed By: #### 5 7021-8 ####[facility]IA [id number] [place] [address] [place] MCHC (RBC) [Mass/Vol] 34.3 g/dL Normal 30.5-36.0 [facility] Comment on above: Order Comment: Speci men Type: BLOOD SPECIMENOrdering Facility: [facility] Address: [address] [place] [address] Performed By: #### 5 7021-8 ####[facility]IA [id number] [place] [address] [place] MCV (RBC) [Entitic vol] 92.7 fL Normal 80.0-100.0 C [facility] Comment on above: Order Comment: Speci men Type: BLOOD SPECIMENOrdering Facility: [facility] Address: [address] [place] [address] Performed By: #### 5 7021-8 ####[facility] LABCLIA [id number] [address] [address] [place] Monocytes (Bld) [#/Vol] 0.68 10*3/uL Normal <0.87 [facility] Comment on above: Order Comment: Speci men Type: BLOOD SPECIMENOrdering Facility: [facility] Address: [address] [place] [address] Performed By: #### 5 7021-8 ####[facility] LABCLIA [id number] [place] [address] [place] Monocytes/100 WBC (Bld) 12.4 % Normal [facility] Comment on above: Order Comment: Speci men Type: BLOOD SPECIMENOrdering Facility: [facility] Address: [address] [place] [address] Performed By: #### 5 7021-8 ####[facility] LABCLIA [id number] [place] [address] [place] Neutrophils (Bld) [#/Vol] 3.94 10*3/uL Normal 1.45-7.50 [facility] Comment on above: Order Comment: Speci men Type: BLOOD SPECIMENOrdering Facility: [facility] Address: [address] [place] [address] Performed By: #### 5 7021-8 ####[facility] LABCLIA [id number] [place] [address] [place] Neutrophils/100 WBC (Bld) 71.6 % Normal [facility] Comment on above: Order Comment: Speci men Type: BLOOD SPECIMENOrdering Facility: [facility] Address: [address] [place] [address] Performed By: #### 5 7021-8 ####[facility] LABCLIA [id number] [place] [address] [place] Nucleated RBC (Bld) [#/Vol] 10*3/uL Normal <0.01 [facility] Comment on above: Order Comment: Speci men Type: BLOOD SPECIMENOrdering Facility: [facility] Address: [address] [place] [address] Performed By: #### 5 7021-8 ####[facility] LABCLIA [id number] [place] [address] [place] Nucleated RBC/100 WBC (Bld) [Ratio] 0.0 /100 WBC Normal [facility] Comment on above: Order Comment: Speci men Type: BLOOD SPECIMENOrdering Facility: [facility] Address: [address] [place] [address] Performed By: #### 5 7021-8 ####[facility] LABCLIA [id number] [place] [address] [place] Platelet mean volume (Bld) [Entitic vol] 11.7 fL Normal 9.0-12.7 [facility] Comment on above: Order Comment: Speci men Type: BLOOD SPECIMENOrdering Facility: [facility] Address: [address] [place] [address] Performed By: #### 5 7021-8 ####[facility]IA [id number] [place] [address] [place] Platelets (Bld) [#/Vol] 38 10*3/uL Low 150-400 C [facility] Comment on above: Order Comment: Speci men Type: BLOOD SPECIMENOrdering Facility: [facility] Address: [address] [place] [address] Result Comment: Resu lts checked and verified.No clot detected. Performed By: #### 5 7021-8 ####[facility] LABCLIA [id number] [place] [address] [place] RBC (Bld) [#/Vol] 2.33 10*6/uL Low 4.20-6.00 [facility] Comment on above: Order Comment: Speci men Type: BLOOD SPECIMENOrdering Facility: [facility] Address: [address] [place] [address] Performed By: #### 5 7021-8 ####[facility] LABCLIA [id number] [place] [address] [place] WBC (Bld) [#/Vol] 5.50 10*3/uL Normal 3.70-11.00 [facility] Comment on above: Order Comment: Speci men Type: BLOOD SPECIMENOrdering Facility: [facility] Address: [address] [place] [address] Performed By: #### 5 7021-8 ####[facility] LABCLIA [id number] [place] [address] [place] CMV IgG Qnon 11-13-2024 CMV IGG QUAL Negative Normal Negative [facility] Comment on above: Order Comment: Speci men Type: BLOOD SPECIMENOrdering Facility: [facility] Address: [address] [place] [address] Result Comment: No s erological evidence of past exposure to Cytomegalovirus. Cannot exclude recent infection if the specimen collected within 4-6 weeks after infection. Performed By: #### 7 852-7, MEASLG, VZVG2, 1988-10 ####[facility] LABCLIA [id number] [place] [address] [place] CMV IgG SerPl-aCncon 025 CMV IgG Qn 0.37 U/mL Normal [facility] Comment on above: Order Comment: [facility]i [facility] Type: BLOOD SPECIMENOrdering Facility: [facility] Address: [address] [place] [address] Result Comment: The magnitude of the measured result is not indicative of the amount of antibody present.U/mL values are interpreted as follows:Negative <0.6Equivocal 0.6 to <0.70Positive >=0.70 Performed By: #### 7 852-7, MEASLG, VZVG2, 1988-10 ####[facility] LABIA [id number] [place] [address] [place] CONSULT PROGon 11-13-2024 CONSULT PROG Normal [facility] CYTOLOGY NON-GYNon 5 AP DISCLAIMER Normal [facility] Comment on above: Order Comment: Speci men Type: FLUID SPECIMENOrdering Facility: [facility] Address: [address] [place] [address] Result Comment: Shellie pugh Developed Test (LDT) Disclaimer:Performance characteristics of immunohistochemical, immunofluorescent, and chromogenic in-situ hybridization tests have been determined by the performing laboratory within [facility]'s [facility] Pathology and Laboratory Medicine Department ([facility], [facility], [facility], [facility], [facility], [facility], or [facility]) in a manner [...] stain appropriately. Performed By: #### C YTONON ####[facility] LABIA [id number] [place] [address] [place] CASE REPORT Normal [facility] Comment on above: Order Comment: Speci men Type: FLUID SPECIMENOrdering Facility: [facility] Address: [address] [place] [address] Result Comment: [facility] Cytology Report Case: [id number] Provider: Deb Fox MD Collected: 11/13/2024 02:46 PMOrdering Location: [place] [address] Received: 11/15/2024 05:01 AMPathologist: Foster Newton MDSpecimen: Urine, Midstream Performed By: #### C YTONON ####[facility] LABIA [id number] [place] [id number] [place] CLINICAL HISTORY Staghorn calculi, s/ p L sided stenting with hematuria Normal [facility] Comment on above: Order Comment: Speci men Type: FLUID SPECIMENOrdering Facility: [facility] Address: [address] [place] [address] Performed By: #### C YTONON ####[facility] LABCLIA [id number] [address] [address] [place] DIAGNOSIS COMMENT Normal [facility] Comment on above: Order Comment: Speci men Type: FLUID SPECIMENOrdering Facility: [facility] Address: [address] [place] [address] Result Comment: A. F ungal yeast forms are seen, morphologically consistent with Mary species. Clinical correlation is suggested. Performed By: #### C YTONON ####[facility] LABCLIA [id number] [place] [address] [place] FINAL DIAGNOSIS Normal [facility] Comment on above: Order Comment: Speci men Type: FLUID SPECIMENOrdering Facility: [facility] Address: [address] [place] [address] Result Comment: A - Urine, Voided: Negative for high-grade urothelial carcinoma. Abundant acute inflammation (see comment). at 1141 EDT Performed By: #### C YTONON ####[facility] LABCLIA [id number] [place] [address] [place] FINAL PERFORMING LAB Normal [facility] Comment on above: Order Comment: Speci men Type: FLUID SPECIMENOrdering Facility: [facility] Address: [address] [place] [address] Result Comment: Tech nical component, core carrier screening performed at: [facility], [address] [place], [place] [address] CLIA: [id number] interpretation performed at: [facility], [address] [place], [place] [address] CLIA# [id number] Director: Titi Voss MD Performed By: #### C YTONON ####[facility] LABCLIA [id number] [place] [address] [place] GROSS DESCRIPTION Normal [facility] Comment on above: Order Comment: Speci men Type: FLUID SPECIMENOrdering Facility: [facility] Address: [address] [place] [address] Result Comment: A. U rine, [id number] cc cloudy lexis fluid . ThinPrep prepared. Performed By: #### C YTONON ####[facility]IA [id number] [place] [address] [place] EBV capsid IgG Qn (S)on 11-02 EBV VCA IGG, QUAL Positive Abnormal Negative [facility] Comment on above: Order Comment: Speci men Type: BLOOD SPECIMENOrdering Facility: [facility] Address: [address] [place] [address] Result Comment: The result suggests recent or past EBV infection. The final interpretation should be done in the context of other EBV serology panel results. Performed By: #### 8 039-0, 7885-7 ####[facility] LABCLIA [id number] [place] [address] [place] Fibrinogen PPP-mCncon 2024 Fibrinogen Coag (PPP) [Mass/Vol] 94 mg/dL Low 200-400 [facility] Comment on above: Order Comment: Speci [facility] Type: BLOOD SPECIMENOrdering Facility: [facility] Address: [address] [place] [address] Result Comment: Samp le checked for clot. Performed By: #### 3 4528-0, 3255-7 ####[facility] LABCLIA [id number] [place] [address] [place] HBV core Ab Ser Qlon 025 HBV core Ab Ql (S) Negative Normal Negative [facility] Comment on above: Order Comment: Speci men Type: BLOOD SPECIMENOrdering Facility: [facility] Address: [address] [place] [address] Result Comment: No e vidence of current or past infection with Hepatitis B virus. Should recent infection be suspected, repeat testing may be considered 3-4 weeks after this draw. Performed By: #### 3 1201-7, 56288-1, JEREMYVG, 5194-3, 84497-0 ####[facility] LABCLIA [id number] [place] [address] [place] HBV surface Ab Ql (S)on 11-02 HBV surface Ab Qn (S) <8.[address] [facility] Comment on above: Order Comment: Speci men Type: BLOOD SPECIMENOrdering Facility: [facility] Address: [address] [place] [address] Result Comment: <8 m IU/mL: No serological evidence of immunity to Hepatitis B Virus.>/= 8 to <12 mIU/mL: No serological evidence of immunity to Hepatitis B Virus.>/= 12 mIU/mL: Consistent with serological evidence of immunity to Hepatitis B Virus. Performed By: #### 3 1201-7, 50188-0, JEREMYVLoki, 5194-3, 49588-7 ####[facility] LABCLIA [id number] [place] [address] [place] HBV surface Ab Ser Qlon 11-02 HBV surface Ab Ql (S) Negative Normal [facility] Comment on above: Order Comment: Speci men Type: BLOOD SPECIMENOrdering Facility: [facility] Address: [address] [place] [address] Result Comment: No s erological evidence of immunity to Hepatitis B Virus. Performed By: #### 3 1201-7, 81327-8, AHAVG, 5194-3, 74588-2 ####[facility] LABCLIA [id number] [place] [address] [place] HBV surface Ag Ser Qlon 11-02 HBV surface Ag Ql (S) Negative Normal Negative [facility] Comment on above: Order Comment: Speci men Type: BLOOD SPECIMENOrdering Facility: [facility] Address: [address] [place] [address] Performed By: #### 3 1201-7, 76347-7, AHAVG, 5195-3, 64843-1 ####[facility] LABCLIA [id number] [place] [address] [place] HCV Ab Ser Qlon 11-13-2024 HCV Ab Ql (S) Negative Normal Negative [facility] Comment on above: Order Comment: Speci men Type: BLOOD SPECIMENOrdering Facility: [facility] Address: [address] [place] [address] Result Comment: The result suggests no evidence of infection with Hepatitis C virus. Should recent infection be suspected, repeat testing may be considered 4-6 weeks after this draw. Performed By: #### 1 6128-1 ####[facility] LABCLIA [id number] [place] [address] [place] HEPATITIS A ANTIBODY, IGGon 11-13-2024 HAV IgG Ql (S) Negative Normal [facility] Comment on above: Order Comment: Speci men Type: BLOOD SPECIMENOrdering Facility: [facility] Address: [address] [place] [address] Result Comment: No s erological evidence of past exposure to hepatitis A virus or hepatitis A vaccination. Should recent infection be suspected, repeat testing is suggested 3-4 weeks after this draw. Performed By: #### 3 1201-7, 12022-6, AHAVG, 5-3, 42007-9 ####[facility] LABCLIA [id number] [place] [address] [place] Performed By: #### 7 3752-8, AHAVG, STRSER, MUMPSG ####[facility] LABCLIA [id number] [place] [address] [place] HIV 1+2 Ab IA Qlon 5 HIV 1 and 2 Ab IA.rapid Nom (S/P/Bld) Normal [facility] Comment on above: Order Comment: Speci men Type: BLOOD SPECIMENOrdering Facility: [facility] Address: [address] [place] [address] Result Comment: Test not indicated. Performed By: #### 3 1201-7, 82890-6, AHAVG, 5194-3, 20439-8 ####[facility] LABIA [id number] [place] [address] [place] HIV 1+2 Ab+HIV1 p24 Ag IA Ql Non-Reactive Normal Nonreactive [facility] Comment on above: Order Comment: Speci men Type: BLOOD SPECIMENOrdering Facility: [facility] Address: [address] [place] [address] Performed By: #### 3 1201-7, 89108-8, AHAVG, 5194-3, 85421-6 ####[facility] [id number] [place] [address] [place] HIV immunoassay testing algorithm interpretation (S/P/Bld) [Interp] Normal [facility] Comment on above: Order Comment: Speci men Type: BLOOD SPECIMENOrdering Facility: [facility] Address: [address] [place] [address] Result Comment: No e vidence of HIV-1 or HIV-2 infection. Should recent infection be suspected, repeat testing may be considered 2-3 weeks after this draw.Bates Rev. Code 3701.243(E): This information has been [...] or diagnoses. Performed By: #### 3 1201-7, 80943-7, AHAVG, 5-3, 65657-9 ####[facility] LABCLIA [id number] [address] [place] [address] [place] Hepatic function 2000 panelo n 11-13-2024 Albumin [Mass/Vol] 2.8 g/dL Low 3.9-4.9 [facility] Comment on above: Order Comment: Speci men Type: BLOOD SPECIMENOrdering Facility: [facility] Address: [address] [place] [address] Performed By: #### 2 4321-2, 86604-8, 04673-8, 80361-3 ####[facility] LABCLIA [id number] [address] [address] [place] ALP [Catalytic activity/Vol] 225 U/L High 38-113 [facility] Comment on above: Order Comment: Speci men Type: BLOOD SPECIMENOrdering Facility: [facility] Address: [address] [place] [address] Performed By: #### 2 4321-2, 78419-5, 94162-0, 78940-6 ####[facility] [id number] [address] [address] [place] ALT [Catalytic activity/Vol] 22 U/L Normal 10-54 [facility] Comment on above: Order Comment: Speci men Type: BLOOD SPECIMENOrdering Facility: [facility] Address: [address] [place] [address] Performed By: #### 2 4321-2, 93758-4, 17478-0, 68431-2 ####[facility] [id number] [address] [address] [place] AST [Catalytic activity/Vol] 36 U/L Normal 14-40 [facility] Comment on above: Order Comment: Speci men Type: BLOOD SPECIMENOrdering Facility: [facility] Address: [address] [place] [address] Performed By: #### 2 4321-2, 53729-5, 16187-0, 73162-1 ####[facility] LABCLIA [id number] [address] [address] [place] Bilirubin [Mass/Vol] 1.8 mg/dL High 0.2-1.3 [facility] Comment on above: Order Comment: Speci men Type: BLOOD SPECIMENOrdering Facility: [facility] Address: [address] [place] [address] Performed By: #### 2 4321-2, 41089-5, 92461-4, 16847-3 ####[facility] [id number] [place] [address] [place] Bilirubin.conjugated [Mass/Vol] 0.9 mg/dL High <0.3 [facility] Comment on above: Order Comment: Speci men Type: BLOOD SPECIMENOrdering Facility: [facility] Address: [address] [place] [address] Performed By: #### 2 4321-2, 28786-1, 73884-3, 93507-3 ####[facility] [id number] [place] [address] [place] Protein [Mass/Vol] 5.2 g/dL Low 6.3-8.0 [facility] Comment on above: Order Comment: Speci men Type: BLOOD SPECIMENOrdering Facility: [facility] Address: [address] [place] [address] Performed By: #### 2 4321-2, 21435-7, 95611-3, 89014-0 ####[facility] [id number] [place] [address] [place] LIVER REC INIT W/Uon 025 ALLOGEN RESULTS TO FOLLOW See Allogen report to follow Normal [facility] Comment on above: Order Comment: Speci men Type: BLOOD SPECIMENOrdering Facility: [facility] Address: [address] [place] [address] Performed By: #### L RIPW ####[facility] [id number] [place] [address] [place] LPa SerPl-mCncon 11-13-2024 Lipoprotein a [Mass/Vol] mg/dL Normal <30 [facility] Comment on above: Order Comment: Speci men Type: BLOOD SPECIMENOrdering Facility: [facility] Address: [address] [place] [address] Performed By: #### 1 0835-7 ####[facility] LABCLIA [id number] [address] [place] Lipid 1996 panelon Cholesterol [Mass/Vol] 52 mg/dL Normal <200 [facility] Comment on above: Order Comment: Speci men Type: BLOOD SPECIMENOrdering Facility: [facility] Address: [address] [place] [address] Result Comment: <200 mg/dL, Desirable 200-239 mg/dL, Borderline high>239 mg/dL, High Performed By: #### 2 4321-2, 49950-9, 14743-4, 23781-0 ####[facility] LABCLIA [id number] [address] STATES [facility] Cholesterol in HDL [Mass/Vol] 17 mg/dL Low >39 [facility] Comment on above: Order Comment: Speci men Type: BLOOD SPECIMENOrdering Facility: [facility] Address: [address] [place] [address] Result Comment: 40-5 9 mg/dL, Acceptable>59 mg/dL, High: Negative risk factor for coronary heart disease<40 mg/dL, Low: Positive risk factor for coronary heart disease Performed By: #### 2 4321-2, 56559-8, 74329-1, 50784-5 ####[facility] LABCLIA [id number] [address] [address] [facility] [place] Cholesterol in LDL [Mass/Vol] 26 mg/dL Normal <100 [facility] Comment on above: Order Comment: Speci men Type: BLOOD SPECIMENOrdering Facility: [facility] Address: [address] [place] [address] Result Comment: <100 mg/dL, Optimal 100-129 mg/dL, Near optimal/above optimal 130-159 mg/dL, Borderline high 160-189 mg/dL, High>189 mg/dL, Very highSecondary prevention optimal LDL Cholesterol levels are recommended to be < 70 mg/dL Performed By: #### 2 4321-2, 50456-1, 26245-4, 51240-5 ####[facility] LABCLIA [id number] [address] [address] [place] Cholesterol in LDL/Cholesterol in HDL [Mass ratio] 1.53 {ratio} Normal <2.54 [facility] Comment on above: Order Comment: Meggani men Type: BLOOD SPECIMENOrdering Facility: [facility] Address: [address] [place] [address] Result Comment: Refe rence:1. National Cholesterol Education Program ATP III Guideline At-A-Glance Quick Desk Reference: National Heart, Lung, and Blood Lillie. National Institutes of Health. 2001: NIH Publication No. 01-3305.2. An International Atherosclerosis Society position paper: global recommendations for the management of dyslipidemia: executive summary, Atherosclerosis. 2014: 232(2):410-413. Performed By: #### 2 4321-2, 00921-1, 96220-9, 37913-9 ####[facility] LABCLIA [id number] [address] [address] [place] Cholesterol in VLDL [Mass/Vol] 9 mg/dL Normal <30 [facility] Comment on above: Order Comment: Speci men Type: BLOOD SPECIMENOrdering Facility: [facility] Address: [address] [place] [address] Performed By: #### 2 4321-2, 12258-4, 04243-3, 52928-6 ####[facility] LABCLIA [id number] [address] [address] [place] Cholesterol non HDL [Mass/Vol] 35 mg/dL Normal <130 [facility] Comment on above: Order Comment: Speci men Type: BLOOD SPECIMENOrdering Facility: [facility] Address: [address] [place] [address] Result Comment: <130 mg/dL, Optimal 130-159 mg/dL, Near optimal/above optimal 160-189 mg/dL, Borderline high 190-219 mg/dL, High>219 mg/dL, Very highSecondary prevention optimal non HDL Cholesterol levels are recommended to be <100 mg/dL Performed By: #### 2 4321-2, 77766-3, 57829-3, 90648-8 ####[facility] LABIA [id number] [address] [place] Cholesterol.total/Donna sterol in HDL [Mass ratio] 3.06 {ratio} Normal <5.10 [facility] Comment on above: Order Comment: Speci men Type: BLOOD SPECIMENOrdering Facility: [facility] Address: [address] [place] [address] Performed By: #### 2 4321-2, 94817-1, 19477-1, 54268-3 ####[facility] LABIA [id number] [place] [address] [place] [facility] FASTING TIME 4 hrs Normal [facility] Comment on above: Order Comment: Speci men Type: BLOOD SPECIMENOrdering Facility: [facility] Address: [address] [place] [address] Performed By: #### 2 4321-2, 52354-4, 59206-1, 26356-9 ####[facility] LABIA [id number] [place] [address] [place] Triglyceride [Mass/Vol] 45 mg/dL Normal <150 C [facility] Comment on above: Order Comment: Speci men Type: BLOOD SPECIMENOrdering Facility: [facility] Address: [address] [place] [address] Result Comment: <150 mg/dL, Normal 150-199 mg/dL, Borderline high 200-499 mg/dL, High>499 mg/dL, Very high Performed By: #### 2 4321-2, 63908-1, 61172-4, 51055-7 ####[facility] LABCLIA [id number] [address] [address] [place] MUMPS IGG ABon 11-13-2024 MuV IgG Ql (S) Negative Abnormal Positive [facility] Comment on above: Order Comment: Speci men Type: BLOOD SPECIMENOrdering Facility: [facility] Address: [address] [place] [address] Result Comment: The result suggests no history of Mumps vaccination or exposure to Mumps virus, however, some individuals with past history of Mumps vaccination may test negative using this test. Please correlate with past history of vaccination if applicable. Performed By: #### 7 3752-8, AHAVG, STRSER, MUMPSG ####[facility] LABIA [id number] [address] [address] [place] NT-proBNP [facility] 11-13 Natriuretic peptide.B prohormone N-Terminal [Mass/Vol] 1047 pg/mL High <125 [facility] Comment on above: Order Comment: Speci men Type: BLOOD SPECIMENOrdering Facility: [facility] Address: [address] [place] [address] Performed By: #### 2 4321-2, 30101-7, 08166-5, 10963-7 ####[facility] LABIA [id number] [address] [address] [place] NURSING PROGon 11-13-2024 NURSING PROG Normal [facility] NURSING PROG Normal [facility] PHOSPHATIDYLETHANOL (PETH)on 11-13-2024 EER PETH See Note Normal [facility] Comment on above: Order Comment: Speci men Type: BLOOD SPECIMENOrdering Facility: [facility] Address: [address] [place] [address] Result Comment: Auth orized individuals can access the Axela Enhanced Reportwith an Axela Connect account using the following link.Your local lab can assist you in obtaining the patientreport if you don't have a Connect account.[email or web address] Performed By: #### P ETH ####[facility]IESCLIA [id number] [place] [address] PETH 16:0/18.2 (PLPETH) <10 Normal C [facility] Comment on above: Order Comment: Speci men Type: BLOOD SPECIMENOrdering Facility: [facility] Address: [address] [place] [address] Result Comment: Refe rence ranges are not well established. Performed By: #### P ETH ####[facility]IESCLIA [id number] [place] [address] PETH 16:0/18:1 (POPETH) <10 Normal C [facility] Comment on above: Order Comment: Speci men Type: BLOOD SPECIMENOrdering Facility: [facility] Address: [address] [place] [address] Result Comment: PEth 16:0/18:1 (POPEth)Less than 10 ng/mL............Not detectedLess than 20 ng/mL............Abstinence or light stvoagsorobykeymfj35 - 200 ng/mL................Moderate alcohol consumptionGreater than 200 ng/mL........Heavy alcohol consumption or chronicalcohol use(Reference: Alonso Landaverde and Mathew Ha 2018 J. Forensic Sci) Performed By: #### P ETH ####[facility]IESCLIA [id number] [place] [address] PETH INTERPRETATION See Comment Normal [facility] Comment on above: Order Comment: Speci men Type: BLOOD SPECIMENOrdering Facility: [facility] Address: [address] [place] [address] Result Comment: Phos phatidylethanol (PEth) is a [...] was developed and its performance characteristicsdetermined by [employer]. It has not been cleared orapproved by the U.S. Food and Drug Administration. This test wasperformed in a CLIA-certified laboratory and is intended forclinical purposes.Performed By: [employer] [place], [place] [address]Xefeazvcaj Director: Lizandro Ordonez MD, PhDCLIA Number: [id number] Performed By: #### P ETH ####[facility] H[facility]PITALIA [id number] [place] [address] PT panel Coag (PPP)on 2024 INR Coag (PPP) [Relative time] 1.9 {INR} High 0.9-1.3 [facility] Comment on above: Order Comment: Speci men Type: BLOOD SPECIMENOrdering Facility: [facility] Address: [address] [place] [address] Result Comment: Sarah min K Antagonist (VKA) Therapeutic Range: INR 2 to 3 (Target INR of 2.5)Note: For patients treated with VKA drugs, such as warfarin, the [employer] 2012 Guideline recommends [...] [phone] Performed By: #### 3 4528-0, 3255-7 ####[facility] LABCLIA [id number] [place] [address] [place] PT Coag (PPP) [Time] 19.9 s High 9.7-13.0 [facility] Comment on above: Order Comment: Ezekiel ramirez Type: BLOOD SPECIMENOrdering Facility: [facility] Address: [address] [place] [address] Performed By: #### 3 4528-0, 3255-7 ####[facility] LABCLIA [id number] [place] [address] [place] Pathology biopsy report Marco Antonio (Tiss)on 11-13-2024 AP DISCLAIMER Normal [facility] Comment on above: Order Comment: Ezekiel ramirez Type: TISSUE SPECIMENOrdering Facility: [facility] Address: [address] [place] [address] Result Comment: Shellie pugh Developed Test (LDT) Disclaimer:Performance characteristics of immunohistochemical, immunofluorescent, and chromogenic in-situ hybridization tests have been determined by the performing laboratory within [facility]'s Thai Nuno Pathology and Laboratory Medicine Department ([facility], [facility], [facility], [facility], [facility], [facility], or [facility]) in a manner [...] Performed By: #### 6 6121-5 ####[facility]ORYCLIA [id number] [address] LABCLIA [id number] [address] [place] CASE REPORT Normal [facility] Comment on above: Order Comment: Speci men Type: TISSUE SPECIMENOrdering Facility: [facility] Address: [address] [place] [address] Result Comment: Surg [facility] Pathology Report Case: [id number] Provider: Thai Pineda MD Collected: 11/13/2024 09:40 AMOrdering Location: [place] [address] Received: 11/15/2024 03:18 PMPathologist: Axel Berger MDSpecimen: Esophagus, Biopsy, r/o esophageal candidiasis Performed By: #### 6 6121-5 ####[facility]ATORYCLIA [id number] [address] LABCLIA [id number] [address] FINAL DIAGNOSIS Normal [facility] Comment on above: Order Comment: Speci men Type: TISSUE SPECIMENOrdering Facility: [facility] Address: [address] [place] [address] Result Comment: Esop hagus, biopsy:- Squamous mucosal candidiasis.JEL 11/16/2024 at 1034 EDT Performed By: #### 6 6121-5 ####[facility]ORATORYCLIA [id number] [place] [address] [facility] LABCLIA [id number] [place] [address] [facility] FINAL PERFORMING LAB Normal [facility] Comment on above: Order Comment: Speci men Type: TISSUE SPECIMENOrdering Facility: [facility] Address: [address] [place] [address] Result Comment: Diag nostic interpretation performed at: [facility], [address] [place] [address] CLIA# [id number] Director: Rick Harris MD Performed By: #### 6 6121-5 ####[facility]ORYCLIA [id number] [address] LABCLIA [id number] [place] [address] [place] GROSS DESCRIPTION Normal [facility] Comment on above: Order Comment: Speci men Type: TISSUE SPECIMENOrdering Facility: [facility] Address: [address] [place] [address] Result Comment: A. E sophagus, BiopsyReceived in formalin are multiple pieces of espitia, soft tissue aggregating to 0.9 x 0.2 x 0.2 cm. Totally submitted in one cassette.BC November 15, 2024 4:50 PMGross examination performed at [facility], [address] [place] [address] Performed By: #### 6 6121-5 ####[facility]ORYCLIA [id number] [address] LABCLIA [id number] [place] [address] [place] Phosphate SerPl-mCncon 11-13 Phosphate [Mass/Vol] 1.5 mg/dL Low 2.7-4.8 [facility] Comment on above: Order Comment: Speci men Type: BLOOD SPECIMENOrdering Facility: [facility] Address: [address] [place] [address] Performed By: #### 2 777-1, 3016-3 ####[facility] LABCLIA [id number] [place] [address] [place] RUBEOLA (MEASLES)IGGon 11-13 MEASLES IGG AB, QUAL Positive Normal Positive [facility] Comment on above: Order Comment: Speci men Type: BLOOD SPECIMENOrdering Facility: [facility] Address: [address] [place] [address] Result Comment: The result suggests recent or past exposure to Measles virus or Measles vaccination. The current test does not detect neutralizing antibodies. Positive result may also be seen due to presence of passively-transferred antibodies. Please correlate with patient's history. Performed By: #### 7 852-7, MEASLG, VZVG2, 1988- ####[facility] LABCLIA [id number] [place] [address] [place] Reagin and Treponema pallidu m IgG and IgM [Interp]on 11-13-2024 T. pallidum IgG+IgM IA Ql (S) Non-Reactive Normal Nonreactive [facility] Comment on above: Order Comment: Speci men Type: BLOOD SPECIMENOrdering Facility: [facility] Address: [address] [place] [address] Performed By: #### 7 3752-8, AHAVG, STRSER, MUMPSG ####[facility] LABCLIA [id number] [place] [address] [place] Reagin+T pallidum IgG+IgM Se rPl-Impon 11-13-2024 Reagin and Treponema pallidum IgG and IgM [Interp] Cannot exclude recent Treponemal infection if specimen collected within 7-10 days after appearance of suspect lesions or 2-3 weeks after an exposure. Clinical correlation is required. Normal [facility] Comment on above: Order Comment: [facility]i [facility] Type: BLOOD SPECIMENOrdering Facility: [facility] Address: [address] [place] [address] Performed By: #### 7 3752-8, AHAVG, STRSER, MUMPSG ####[facility] LABCLIA [id number] [place] [address] [place] STAPHYLOCOCCUS AUREUS AND MR SA SCREEN, PCR, NASALon 11-13-2024 S. aureus and MRSA panel ANANTH+probe (Nose) Not detected Normal Not Detected [facility] Comment on above: Order Comment: Spechelder ramirez Type: SWABOrdering Facility: [facility] Address: [address] [place] [address] Performed By: #### S APCR ####[facility] LABCLIA [id number] [place] [address] [place] STRONGYLOIDES IGG BLon 11-13 STRONGYLOIDES IGG QUALITATIVE Negative Normal Negative [facility] Comment on above: Order Comment: Speci james Type: BLOOD SPECIMENOrdering Facility: [facility] Address: [address] [place] [address] Performed By: #### S TRSER ####[facility] LABCLIA [id number] [place] [address] [place] Performed By: #### 7 3752-8, AHAVG, STRSER, MUMPSG ####[facility] LABCLIA [id number] [place] [address] [place] T. gondii IgG Qn (S)on 11-13 TOXO IGG QUAL Negative Normal Negative [facility] Comment on above: Order Comment: Ezekiel ramirez Type: BLOOD SPECIMENOrdering Facility: [facility] Address: [address] [place] [address] Result Comment: No s erological evidence of past exposure to Toxoplasma gondii. Cannot exclude recent infection if the specimen collected within 3-4 weeks after infection. Performed By: #### 8 039-0, 7885-7 ####[facility] LABCLIA [id number] [place] [address] [place] THERAPY NTon 11-13-2024 THERAPY NT Normal [facility] TOXICOLOGY PANEL BLDon 11-13 Acetaminophen [Mass/Vol] ug/mL Low 10-30 [facility] Comment on above: Order Comment: Speci men Type: BLOOD SPECIMENOrdering Facility: [facility] Address: [facility] [place] [address] Result Comment: Toxi c > 150 ug/mL 4 hours post ingestionThe Viviana Figueroa nomogram can be used to estimate the probability of hepatotoxicity via the relationship of plasma acetaminophen concentration to the post ingestion interval. (Skylar. Pediatrics. 1975. 55:871 to 876 and Viviana et al. Arch Nylon Machine Operator Med. 1981. 141:380 to 385).Reference ranges and high/low indicator flags are provided as general guidelines only. The treating physician must determine appropriate target levels/dosing based on the specific clinical situation. Performed By: #### T OXP ####[facility] LABCLIA [id number] [place] [address] [place] Ethanol [Mass/Vol] mg/dL Normal <11 [facility] Comment on above: Order Comment: Ezekiel ramirez Type: BLOOD SPECIMENOrdering Facility: [facility] Address: [address] [place] [address] Performed By: #### T OXP ####[facility] LABCLIA [id number] [place] [address] [place] Salicylates [Mass/Vol] mg/dL Low 3.0-30.0 [facility] Comment on above: Order Comment: Ezekiel ramirez Type: BLOOD SPECIMENOrdering Facility: [facility] Address: [address] [place] [address] Result Comment: The therapeutic range varies and has been reported to be 3.0 to 10.0 mg/dL for anti pyretic/analgesic conditions and 15.0 to 30.0 mg/dL for anti inflammatory/rheumatic fever conditions. Ranges published by the instrument microsoft exchange administrator.Reference ranges and high/low indicator flags are provided as general guidelines only. The treating physician must determine appropriate target levels/dosing based on the specific clinical situation. Performed By: #### T OXP ####[facility] LABCLIA [id number] [address] [address] [place] TSH SerPl-aCncon 11-13-2024 TSH Qn 0.633 m[IU]/L Normal 0.270-4.200 [facility] Comment on above: Order Comment: Ezekiel ramirez Type: BLOOD SPECIMENOrdering Facility: [facility] Address: [address] [place] [address] Performed By: #### 2 777-1, 3016-3 ####[facility] LABCLIA [id number] [place] [address] [place] Upper GI endoscopyon 025 Upper GI endoscopy Normal [facility] VARICELLA ZOSTER IGGon 11-13 VARICELLA ZOSTER IGG, QUAL Positive Normal Positive [facility] Comment on above: Order Comment: Ezekiel ramirez Type: BLOOD SPECIMENOrdering Facility: [facility] Address: [address] [place] [address] Result Comment: The result suggests recent or past exposure to Varicella-Zoster virus or chickenpox vaccination or zoster vaccination. Positive result may also be seen due to presence of passively-transferred antibodies. Please correlate with patient's history. Performed By: #### 7 852-7, MEASLG, VZVG2, 1987-10 ####[facility] LABCLIA [id number] [address] [place] Vit A SerPl-mCncon 5 Retinol [Mass/Vol] 0.03 mg/L Low 0.30-1.20 [facility] Comment on above: Order Comment: Ezekiel ramirez Type: BLOOD SPECIMENOrdering Facility: [facility] Address: [address] [place] [address] Result Comment: This test was developed, and its performance characteristics determined by the [facility] Department of Pathology and Laboratory Medicine. It has not been cleared or approved by the FDA. The [facility] Department of Pathology and Laboratory Medicine is regulated under CLIA as qualified to perform high-complexity testing. This test is used for clinical purposes. It should not be regarded as investigational or for research. Performed By: #### 2 923-1, 1823-4 ####[facility] LABCLIA [id number] [address] [place] Zinc SerPl-mCncon 11-13-2024 Zinc [Mass/Vol] 60 ug/dL Normal 60-120 [facility] Comment on above: Order Comment: Speci men Type: BLOOD SPECIMENOrdering Facility: [facility] Address: [address] [place] [address] Result Comment: This test was developed, and its performance characteristics determined by the [facility] Department of Pathology and Laboratory Medicine. It has not been cleared or approved by the FDA. The [facility] Department of Pathology and Laboratory Medicine is regulated under CLIA as qualified to perform high-complexity testing. This test is used for clinical purposes. It should not be regarded as investigational or for research. Performed By: #### 5 763-8 ####[facility] LABIA [id number] [address] STATES OF [facility] AFP SerPl-mCncon 11-12-2024 AFP [Mass/Vol] 2.25 ng/mL Normal <9.00 [facility] Comment on above: Order Comment: Speci men Type: BLOOD SPECIMENOrdering Facility: [facility] Address: [address] [place] [address] Result Comment: The Alpha-Fetoprotein test was performed using the LOGIC DEV[employer]el DxI immunoenzymatic assay. Results obtained with different assay methods or kits cannot be used interchangeably. Performed By: #### 1 834-1 ####[facility] LABIA [id number] [address] [place] ARTERIAL BLOOD GASESon 11-12 Base deficit (BldA) [Moles/Vol] -8 mmol/L Low -2-0 [facility] Comment on above: Order Comment: Speci men Type: ARTERIAL BLOOD SPECIMENOrdering Facility: [facility] Address: [address] [place] [address] Performed By: #### A LLBG ####[facility] LABIA [id number] [address] [place] Body temperature 98.6 [degF] Normal [facility] Comment on above: Order Comment: Speci men Type: ARTERIAL BLOOD SPECIMENOrdering Facility: [facility] Address: [address] [place] [address] Performed By: #### A LLBG ####[facility] LABCLIA [id number] [place] [address] [place] [place] Calcium.ionized (Bld) [Mass/Vol] 1.20 mmol/L Normal 1.08-1.30 [facility] Comment on above: Order Comment: Speci men Type: ARTERIAL BLOOD SPECIMENOrdering Facility: [facility] Address: [address] [place] [address] Performed By: #### A LLBG ####[facility] [id number] [place] [address] [place] Calcium.ionized adjusted to pH 7.4 (BldA) [Moles/Vol] 1.24 mmol/L Normal 1.08-1.30 [facility] Comment on above: Order Comment: Speci men Type: ARTERIAL BLOOD SPECIMENOrdering Facility: [facility] Address: [address] [place] [address] Performed By: #### A LLBG ####[facility] [id number] [place] [address] [place] Carboxyhemoglobin (BldA) [Mass fraction] 2.0 % Normal 0.0-2.0 [facility] Comment on above: Order Comment: Speci men Type: ARTERIAL BLOOD SPECIMENOrdering Facility: [facility] Address: [address] [place] [address] Result Comment: Carb oxyhemoglobin Reference Range for Smokers: 2.0-8.0% Performed By: #### A LLBG ####[facility] [id number] [place] [address] [place] CO2 (Bld) [Partial pressure] 21 mm Hg Low 36-46 [facility] Comment on above: Order Comment: Speci men Type: ARTERIAL BLOOD SPECIMENOrdering Facility: [facility] Address: [address] [place] [address] Performed By: #### A LLBG ####[facility] LABCLIA [id number] [place] [address] [place] Glucose [Mass/Vol] 276 mg/dL High 60-105 [facility] Comment on above: Order Comment: Speci men Type: ARTERIAL BLOOD SPECIMENOrdering Facility: [facility] Address: [address] [place] [address] Performed By: #### A LLBG ####[facility]CLIA [id number] [place] [address] [place] HCO3 (Bld) [Moles/Vol] 15 mmol/L Low 22-26 [facility] Comment on above: Order Comment: Speci men Type: ARTERIAL BLOOD SPECIMENOrdering Facility: [facility] Address: [address] [place] [address] Performed By: #### A LLBG ####[facility] LABCLIA [id number] [place] [address] [place] Hematocrit (Bld) [Volume fraction] 22.4 % Low 39.0-51.0 [facility] Comment on above: Order Comment: Speci men Type: ARTERIAL BLOOD SPECIMENOrdering Facility: [facility] Address: [address] [place] [address] Performed By: #### A LLBG ####[facility]CL[facility] [id number] [place] [address] [place] Hemoglobin (Bld) [Mass/Vol] 7.2 g/dL Low 13.0-17.0 [facility] Comment on above: Order Comment: Speci men Type: ARTERIAL BLOOD SPECIMENOrdering Facility: [facility] Address: [address] [place] [address] Performed By: #### A LLBG ####[facility] LABCLIA [id number] [address] [place] [address] [place] Lactate [Moles/Vol] 2.9 mmol/L High 0.5-2.2 [facility] Comment on above: Order Comment: Speci men Type: ARTERIAL BLOOD SPECIMENOrdering Facility: [facility] Address: [address] [place], [place] [address] Performed By: #### A LLBG ####[facility]CLIA [id number] [address] [place] [address] [place] Methemoglobin (Bld) [Mass fraction] 1.0 % Normal 0.0-1.5 [facility] Comment on above: Order Comment: Speci men Type: ARTERIAL BLOOD SPECIMENOrdering Facility: [facility] Address: [address] [place] [address] Performed By: #### A LLBG ####[facility] LABCL[facility] [id number] [place] [address] [place] O2 THERAPY RA=Room Air Normal [facility] Comment on above: Order Comment: Speci men Type: ARTERIAL BLOOD SPECIMENOrdering Facility: [facility] Address: [address] [place] [address] Performed By: #### A LLBG ####[facility]CLIA [id number] [address] [address] [place] Oxygen (Bld) [Partial pressure] 94 mm Hg Normal 85-95 [facility] Comment on above: Order Comment: Speci men Type: ARTERIAL BLOOD SPECIMENOrdering Facility: [facility] Address: [address] [place] [address] Performed By: #### A LLBG ####[facility]CL[facility] [id number] [address] [address] [place] Oxyhemoglobin (BldA) [Mass fraction] 96 % Normal 95-98 [facility] Comment on above: Order Comment: Speci men Type: ARTERIAL BLOOD SPECIMENOrdering Facility: [facility] Address: [address] [place] [address] Performed By: #### A LLBG ####[facility]CL[facility] [id number] [place] [address] [place] pH (Bld) 7.46 [pH] High 7.35-7.45 [facility] Comment on above: Order Comment: Speci men Type: ARTERIAL BLOOD SPECIMENOrdering Facility: [facility] Address: [address] [place] [address] Performed By: #### A LLBG ####[facility] [id number] [place] [address] [place] PO2 / FIO2 RATIO 448 mmHg Normal >300 [facility] Comment on above: Order Comment: Speci men Type: ARTERIAL BLOOD SPECIMENOrdering Facility: [facility] Address: [address] [place] [address] Performed By: #### A LLBG ####[facility] [id number] [place] [address] [place] Potassium [Moles/Vol] 3.9 mmol/L Normal 3.5-5.0 [facility] Comment on above: Order Comment: Speci men Type: ARTERIAL BLOOD SPECIMENOrdering Facility: [facility] Address: [address] [place] [address] Performed By: #### A LLBG ####[facility] [id number] [place] [address] [place] Sodium [Moles/Vol] 124 mmol/L Low 136-144 [facility] Comment on above: Order Comment: Speci men Type: ARTERIAL BLOOD SPECIMENOrdering Facility: [facility] Address: [address] [place] [address] Performed By: #### A LLBG ####[facility] [id number] [place] [address] [place] Bacteria Ur Culton 04-11-202 5 Bacteria identified Cx Nom (U) Normal [facility] Comment on above: Performed By: #### 6 30-4, 21399-2 ####[facility]CL[facility] [id number] [address] [address] [place] Basic metabolic 2000 panelon 11-12-2024 Anion gap [Moles/Vol] 11 mmol/L Normal 8-15 [facility] Comment on above: Order Comment: Speci men Type: BLOOD SPECIMENOrdering Facility: [facility] Address: [address] [place], [place] [address] Performed By: #### 2 4321-2, 60610-3, 2777-1 ####[facility] [id number] [address] [address] [place] Calcium [Mass/Vol] 9.2 mg/dL Normal 8.5-10.2 [facility] Comment on above: Order Comment: Speci men Type: BLOOD SPECIMENOrdering Facility: [facility] Address: [address] [place], [place] [address] Performed By: #### 2 4321-2, 52873-5, 2777-1 ####[facility] [id number] [address] [address] [place] Chloride [Moles/Vol] 99 mmol/L Normal 98-107 [facility] Comment on above: Order Comment: Speci men Type: BLOOD SPECIMENOrdering Facility: [facility] Address: [address] [place] [address] Performed By: #### 2 4321-2, 30439-4, 2777-1 ####[facility] [id number] [address] [address] [place] CO2 [Moles/Vol] 14 mmol/L Low 22-30 [facility] Comment on above: Order Comment: Speci men Type: BLOOD SPECIMENOrdering Facility: [facility] Address: [address] [place] [address] Performed By: #### 2 4321-2, 24462-9, 2776- ####[facility] [id number] [address] [address] [place] Creatinine [Mass/Vol] 1.22 mg/dL Normal 0.73-1.22 [facility] Comment on above: Order Comment: Spechelder men Type: BLOOD SPECIMENOrdering Facility: [facility] Address: [address] [place] [address] Performed By: #### 2 4321-2, 04645-9, 2776- ####[facility] [id number] [place] [address] [place] Creatinine and Glomerular filtration rate.predicted panel (S/P/Bld) 69 mL/min/1.73m??? Normal >=60 [facility] Comment on above: Order Comment: Ezekiel ramirez Type: BLOOD SPECIMENOrdering Facility: [facility] Address: [address] [place] [address] Result Comment: Patric mated Glomerular Filtration Rate [...] actual GFR. Performed By: #### 2 4321-2, 51355-3, 2776- ####[facility] [id number] [address] [address] [place] Glucose [Mass/Vol] 304 mg/dL High 74-99 [facility] Comment on above: Order Comment: Ezekiel ramirez Type: BLOOD SPECIMENOrdering Facility: [facility] Address: [address] [place] [address] Result Comment: The [place] Diabetes Association (ADA) provides guidance for cutoff [...] Standards of Medical Care in Diabetes 2016, [employer]. Diabetes Care. 2016.39(Suppl 1). Performed By: #### 2 4321-2, 98526-4, 2776- ####[facility]CL[facility] [id number] [place] [address] [place] Potassium [Moles/Vol] 4.3 mmol/L Normal 3.7-5.1 [facility] Comment on above: Order Comment: Speci men Type: BLOOD SPECIMENOrdering Facility: [facility] Address: [address] [place] [address] Performed By: #### 2 432-2, 80147-5, 2776-08 ####[facility]CL[facility] [id number] [place] [address] [place] Sodium [Moles/Vol] 124 mmol/L Low 136-144 [facility] Comment on above: Order Comment: Speci men Type: BLOOD SPECIMENOrdering Facility: [facility] Address: [address] [place] [address] Performed By: #### 2 432-2, 47456-5, 2776-08 ####[facility]CL[facility] [id number] [address] [address] [place] Urea nitrogen [Mass/Vol] 22 mg/dL Normal 9-24 [facility] Comment on above: Order Comment: Speci men Type: BLOOD SPECIMENOrdering Facility: [facility] Address: [address] [place] [address] Performed By: #### 2 4321-2, 21063-3, 2776-08 ####[facility]CL[facility] [id number] [address] [address] [place] CASE MGT INIT ASSESon 2024 CASE MGT INIT ASSES Normal [facility] CBC panel Auto (Bld)on 11-12 Erythrocyte distribution width (RBC) [Ratio] 16.9 % High 11.5-15.0 [facility] Comment on above: Order Comment: Speci men Type: BLOOD SPECIMENOrdering Facility: [facility] Address: [address] [place] [address] Performed By: #### 5 8410-2 ####[facility]CL[facility] [id number] [place] [address] [place] Hematocrit (Bld) [Volume fraction] 21.7 % Low 39.0-51.0 [facility] Comment on above: Order Comment: Speci men Type: BLOOD SPECIMENOrdering Facility: [facility] Address: [address] [place] [address] Performed By: #### 5 8410-2 ####[facility]CL[facility] [id number] [place] [address] [place] Hemoglobin (Bld) [Mass/Vol] 7.5 g/dL Low 13.0-17.0 [facility] Comment on above: Order Comment: Speci men Type: BLOOD SPECIMENOrdering Facility: [facility] Address: [address] [place] [address] Performed By: #### 5 8410-2 ####[facility]CL[facility] [id number] [place] [address] [place] MCH (RBC) [Entitic mass] 31.5 pg Normal 26.0-34.0 [facility] Comment on above: Order Comment: Speci men Type: BLOOD SPECIMENOrdering Facility: [facility] Address: [address] [place] [address] Performed By: #### 5 8410-2 ####[facility] [id number] [place] [address] [place] MCHC (RBC) [Mass/Vol] 34.6 g/dL Normal 30.5-36.0 [facility] Comment on above: Order Comment: Speci men Type: BLOOD SPECIMENOrdering Facility: [facility] Address: [address] [place] [address] Performed By: #### 5 8410-2 ####[facility] [id number] [place] [address] [place] MCV (RBC) [Entitic vol] 91.2 fL Normal 80.0-100.0 [facility] Comment on above: Order Comment: Speci men Type: BLOOD SPECIMENOrdering Facility: [facility] Address: [address] [place] [address] Performed By: #### 5 8410-2 ####[facility] [id number] [place] [address] [place] Nucleated RBC (Bld) [#/Vol] 10*3/uL Normal <0.01 [facility] Comment on above: Order Comment: Speci men Type: BLOOD SPECIMENOrdering Facility: [facility] Address: [address] [place] [address] Performed By: #### 5 8410-2 ####[facility] [id number] [place] [address] [place] Platelet mean volume (Bld) [Entitic vol] 10.8 fL Normal 9.0-12.7 [facility] Comment on above: Order Comment: Speci men Type: BLOOD SPECIMENOrdering Facility: [facility] Address: [address] [place] [address] Performed By: #### 5 8410-2 ####[facility] [id number] [place] [address] [place] Platelets (Bld) [#/Vol] 31 10*3/uL Low 150-400 [facility] Comment on above: Order Comment: Speci men Type: BLOOD SPECIMENOrdering Facility: [facility] Address: [address] [place] [address] Result Comment: Resu lts checked and verified.No clot detected. Performed By: #### 5 8410-2 ####[facility] [id number] [place] [address] [place] RBC (Bld) [#/Vol] 2.38 10*6/uL Low 4.20-6.00 [facility] Comment on above: Order Comment: Speci men Type: BLOOD SPECIMENOrdering Facility: [facility] Address: [address] [place] [address] Performed By: #### 5 8410-2 ####[facility] [id number] [place] [address] [place] WBC (Bld) [#/Vol] 6.35 10*3/uL Normal 3.70-11.00 [facility] Comment on above: Order Comment: Speci men Type: BLOOD SPECIMENOrdering Facility: [facility] Address: [address] [place] [address] Performed By: #### 5 8410-2 ####[facility] [id number] [place] [address] [place] Erythrocyte distribution width (RBC) [Ratio] 17.3 % High 11.5-15.0 [facility] Comment on above: Order Comment: Speci men Type: BLOOD SPECIMENOrdering Facility: [facility] Address: [address] [place] [address] Performed By: #### 5 8410-2 ####[facility]CL[facility] [id number] [place] [address] [place] Hematocrit (Bld) [Volume fraction] 22.9 % Low 39.0-51.0 [facility] Comment on above: Order Comment: Speci men Type: BLOOD SPECIMENOrdering Facility: [facility] Address: [address] [place] [address] Performed By: #### 5 8410-2 ####[facility] [id number] [place] [address] [place] Hemoglobin (Bld) [Mass/Vol] 7.9 g/dL Low 13.0-17.0 [facility] Comment on above: Order Comment: Speci men Type: BLOOD SPECIMENOrdering Facility: [facility] Address: [address] [place] [address] Performed By: #### 5 8410-2 ####[facility] [id number] [place] [address] [place] MCH (RBC) [Entitic mass] 31.5 pg Normal 26.0-34.0 [facility] Comment on above: Order Comment: Speci men Type: BLOOD SPECIMENOrdering Facility: [facility] Address: [address] [place] [address] Performed By: #### 5 8410-2 ####[facility] [id number] [place] [address] [place] MCHC (RBC) [Mass/Vol] 34.5 g/dL Normal 30.5-36.0 [facility] Comment on above: Order Comment: Speci men Type: BLOOD SPECIMENOrdering Facility: [facility] Address: [address] [place] [address] Performed By: #### 5 8410-2 ####[facility] [id number] [place] [address] [place] MCV (RBC) [Entitic vol] 91.2 fL Normal 80.0-100.0 [facility] Comment on above: Order Comment: Speci men Type: BLOOD SPECIMENOrdering Facility: [facility] Address: [address] [place] [address] Performed By: #### 5 8410-2 ####[facility] [id number] [address] [address] [place] Nucleated RBC (Bld) [#/Vol] 10*3/uL Normal <0.01 [facility] Comment on above: Order Comment: Speci men Type: BLOOD SPECIMENOrdering Facility: [facility] Address: [address] [place] [address] Performed By: #### 5 8410-2 ####[facility] [id number] [place] [address] [place] Platelet mean volume (Bld) [Entitic vol] 11.6 fL Normal 9.0-12.7 [facility] Comment on above: Order Comment: Speci men Type: BLOOD SPECIMENOrdering Facility: [facility] Address: [address] [place] [address] Performed By: #### 5 8410-2 ####[facility] [id number] [place] [address] [place] Platelets (Bld) [#/Vol] 33 10*3/uL Low 150-400 [facility] Comment on above: Order Comment: Speci men Type: BLOOD SPECIMENOrdering Facility: [facility] Address: [address] [place] [address] Result Comment: Resu lts checked and verified.No clot detected. Performed By: #### 5 8410-2 ####[facility] [id number] [place] [address] [place] RBC (Bld) [#/Vol] 2.51 10*6/uL Low 4.20-6.00 [facility] Comment on above: Order Comment: Speci men Type: BLOOD SPECIMENOrdering Facility: [facility] Address: [address] [place] [address] Performed By: #### 5 8410-2 ####[facility] [id number] [place] [address] [place] WBC (Bld) [#/Vol] 7.27 10*3/uL Normal 3.70-11.00 [facility] Comment on above: Order Comment: Speci men Type: BLOOD SPECIMENOrdering Facility: [facility] Address: [address] [place] [address] Performed By: #### 5 8410-2 ####[facility] [id number] [place] [address] [place] CITRATED PLATELET COUNTon CITRATED PLATELET COUNT (WAM) 33 k/uL Low 150-400 [facility] Comment on above: Order Comment: Speci men Type: BLOOD SPECIMENOrdering Facility: [facility] Address: [address] [place] [address] Result Comment: Plat elet count confirmed by manual review of peripheral blood smear. No clot detected. Performed By: #### C ITPLT ####[facility] [id number] [place] [address] [place] CNCNPATEDon 11-12-2024 CNCNPATED Normal [facility] CNPNon 11-12-2024 CNPN Normal [facility] CONFIRM BLOOD TYPEon 025 ABO O Normal [facility] Comment on above: Order Comment: Speci men Type: BLOOD SPECIMENOrdering Facility: [facility] Address: [address] [place] [address] Performed By: #### C ONABO ####[facility] BANKCLIA [id number] [place] [address] [place] Rh Nom (Bld) Positive Normal [facility] Comment on above: Order Comment: Speci men Type: BLOOD SPECIMENOrdering Facility: [facility] Address: [address] [place] [address] Performed By: #### C ONABO ####[facility] B[facility] BANKCLIA [id number] [place] [address] [place] CONSULTon 11-12-2024 CONSULT Normal [facility] CONSULT Normal [facility] CONSULT Normal [facility] CONSULT Normal [facility] CONSULT Normal [facility] CONSULT Normal [facility] CT CHEST WO IVCONon 11-13-19 CT CHEST WO IVCON Normal [facility] D dimer FEU PPP-mCncon 11-12 Fibrin D-dimer FEU (PPP) [Mass/Vol] 3850 ng/mL FEU High <500 [facility] Comment on above: Order Comment: Speci men Type: BLOOD SPECIMENOrdering Facility: [facility] Address: [address] [place] [address] Performed By: #### 4 8065-7 ####[facility] [id number] [place] [address] [place] ECHO WITH AGITATED SALINE CO NTRASTon 11-12-2024 ECHO WITH AGITATED SALINE CONTRAST Normal [facility] Fibrin D-dimer FEU (PPP) [Ma ss/Vol]on 11-12-2024 D DIMER AGE-RELATED CUTOFF 580 ng/mL FEU Normal [facility] Comment on above: Order Comment: Ezekiel ramirez Type: BLOOD SPECIMENOrdering Facility: [facility] Address: [address] [place] [address] Performed By: #### 4 8065-7 ####[facility] [id number] [place] [address] [place] Hepatic function 2000 panelo n 11-12-2024 Albumin [Mass/Vol] 3.0 g/dL Low 3.9-4.9 [facility] Comment on above: Order Comment: Meggani men Type: BLOOD SPECIMENOrdering Facility: [facility] Address: [address] [place] [address] Performed By: #### 2 4321-2, 72603-1, 2777-1 ####[facility]CL[facility] [id number] [place] [id number] [address] [place] ALP [Catalytic activity/Vol] 252 U/L High 38-113 [facility] Comment on above: Order Comment: Speci men Type: BLOOD SPECIMENOrdering Facility: [facility] Address: [address] [place] [address] Performed By: #### 2 4321-2, 25720-7, 2777-1 ####[facility] [id number] [place] [address] [place] ALT [Catalytic activity/Vol] 24 U/L Normal 10-54 [facility] Comment on above: Order Comment: Speci men Type: BLOOD SPECIMENOrdering Facility: [facility] Address: [address] [place] [address] Performed By: #### 2 4321-2, 08666-1, 2777-1 ####[facility] [id number] [place] [address] [place] AST [Catalytic activity/Vol] 41 U/L High 14-40 [facility] Comment on above: Order Comment: Speci men Type: BLOOD SPECIMENOrdering Facility: [facility] Address: [address] [place] [address] Performed By: #### 2 4321-2, 41799-5, 277-1 ####[facility] [id number] [place] [id number] [place] Bilirubin [Mass/Vol] 1.8 mg/dL High 0.2-1.3 [facility] [facility] Comment on above: Order Comment: Speci men Type: BLOOD SPECIMENOrdering Facility: [facility] Address: [address] [place] [address] Performed By: #### 2 4321-2, 78464-5, 277-1 ####[facility] LABCLIA [id number] [address] [address] [place] Bilirubin.conjugated [Mass/Vol] 0.9 mg/dL High <0.3 [facility] Comment on above: Order Comment: Speci men Type: BLOOD SPECIMENOrdering Facility: [facility] Address: [address] [place] [address] Result Comment: Resu lts may be falsely decreased due to interference from hemolysis. Suggest reorder as clinically indicated. Performed By: #### 2 4321-2, 12093-6, 2777-1 ####[facility] LABCLIA [id number] [place] [address] [place] Protein [Mass/Vol] 5.5 g/dL Low 6.3-8.0 [facility] Comment on above: Order Comment: Speci men Type: BLOOD SPECIMENOrdering Facility: [facility] Address: [address] [place] [address] Performed By: #### 2 4321-2, 98769-5, 2777-1 ####[facility] LABIA [id number] [place] [address] [place] MEDICAL EMERon 11-12-2024 MEDICAL KRISTINA Normal [facility] NURSING PROGon 11-12-2024 NURSING PROG Normal [facility] NURSING PROG Normal [facility] NURSING PROG Normal [facility] NURSING PROG Normal [facility] NUTRITIONon 11-12-2024 NUTRITION Normal [facility] PTT, ANTICOAGULANT THERAPYon 11-12-2024 aPTT Coag (PPP) [Time] 62.6 s High 23.0-32.4 [facility] Comment on above: Order Comment: Speci men Type: BLOOD SPECIMENOrdering Facility: [facility] Address: [address] [place] [address] Performed By: #### P TTAC ####[facility] LABIA [id number] [place] [address] [place] Phosphate SerPl-mCncon 11-12 Phosphate [Mass/Vol] 2.3 mg/dL Low 2.7-4.8 [facility] Comment on above: Order Comment: Speci men Type: BLOOD SPECIMENOrdering Facility: [facility] Address: [address] [place] [address] Performed By: #### 2 4321-2, 34588-2, 2777-1 ####[facility] LABCLIA [id number] [place] [address] [place] SOCIAL WORKon 11-12-2024 SOCIAL WORK Normal [facility] THERAPY NTon 11-12-2024 THERAPY NT Normal [facility] THERAPY NT Normal [facility] THROMBOGRAPH PANELon 025 Clot angle TEG (Bld) [Angle] 32.8 degrees Low 47.0-74.0 [facility] Comment on above: Order Comment: Speci men Type: BLOOD SPECIMENOrdering Facility: [facility] Address: [address] [place] [address] Performed By: #### T EGPNP ####[facility] LABCLIA [id number] [place] [address] [place] Clot Lysis 30 Min post maximum clot amplitude TEG (Bld) [Length fraction] 0.0 % Normal 0.0-8.0 [facility] Comment on above: Order Comment: Speci men Type: BLOOD SPECIMENOrdering Facility: [facility] Address: [address] [place] [address] Performed By: #### T EGPNP ####[facility] LABCLIA [id number] [place] [address] [place] Clotting time TEG (Bld) 5.0 minutes Normal 4.0-10.0 [facility] Comment on above: Order Comment: Speci men Type: BLOOD SPECIMENOrdering Facility: [facility] Address: [address] [place] [address] Performed By: #### T EGPNP ####[facility] LABCLIA [id number] [facility] [place] [address] [place] Coagulation index TEG Qn (Bld) -8.4 Low -4.6-3.2 [facility] Comment on above: Order Comment: Ezekiel ramirez Type: BLOOD SPECIMENOrdering Facility: [facility] Address: [address] [place] [address] Result Comment: This test was developed, and its performance characteristics determined by the [facility] Department of Pathology and Laboratory Medicine. It has not been cleared or approved by the FDA. The [facility] Department of Pathology and Laboratory Medicine is regulated under CLIA as qualified to perform high-complexity testing. This test is used for clinical purposes. It should not be regarded as investigational or for research. Performed By: #### T EGPNP ####[facility] LABIA [id number] [place] [address] [place] Maximum clot firmness TEG (Bld) [Length] 28.5 mm Low 51.0-75.0 [facility] Comment on above: Order Comment: Ezekiel ramirez Type: BLOOD SPECIMENOrdering Facility: [facility] Address: [address] [place] [address] Performed By: #### T EGPNP ####[facility] [id number] [address] [place] Thromboelastography after addtion of heparinase panel (Bld) Normal [facility] Comment on above: Order Comment: Ezekiel ramirez Type: BLOOD SPECIMENOrdering Facility: [facility] Address: [address] [place] [address] Result Comment: A th romboelastograph (TEG) study [...] timely manner. Performed By: #### T EGPNP ####[facility] LABCLIA [id number] [place] [address] [place] TOXICOLOGY SCREEN, ROUTINE U RINEon 11-12-2024 Amphetamines Confirm (U) [Mass/Vol] Negative Normal Negative [facility] Comment on above: Order Comment: Speci men Type: URINE SPECIMENOrdering Facility: [facility] Address: [address] [place] [address] Result Comment: Cuto ff threshold at 1000 ng/mL. Performed By: #### U TOX2 ####[facility] LABCLIA [id number] [place] [address] [place] BARBITURATES, URINE Negative Normal Negative [facility] Comment on above: Order Comment: Speci men Type: URINE SPECIMENOrdering Facility: [facility] Address: [address] [place] [address] Result Comment: Cuto ff threshold at 200 ng/mL. Performed By: #### U TOX2 ####[facility] LABCLIA [id number] [place] [address] [place] BENZODIAZEPINES, UR Negative Normal Negative [facility] Comment on above: Order Comment: Speci men Type: URINE SPECIMENOrdering Facility: [facility] Address: [address] [place] [address] Result Comment: Cuto ff threshold at 200 ng/mL. Performed By: #### U TOX2 ####[facility]CLIA [id number] [place] [address] [place] Cannabinoids Screen Ql (U) Negative Normal Negative [facility] Comment on above: Order Comment: Speci men Type: URINE SPECIMENOrdering Facility: [facility] Address: [address] [place] [address] Result Comment: Cuto ff threshold at 50 ng/mL. Performed By: #### U TOX2 ####[facility] LABCLIA [id number] [place] [address] [place] Cocaine Ql (U) Negative Normal Negative [facility] Comment on above: Order Comment: Speci men Type: URINE SPECIMENOrdering Facility: [facility] Address: [address] [place] [address] Result Comment: Cuto ff threshold at 300 ng/mL. Performed By: #### U TOX2 ####[facility] LABCLIA [id number] [place] [address] [place] Ethanol (U) [Mass/Vol] <11 Normal <11 Cl [facility] Comment on above: Order Comment: Speci men Type: URINE SPECIMENOrdering Facility: [facility] Address: [address] [place] [address] Performed By: #### U TOX2 ####[facility] LABCLIA [id number] [place] [address] [place] Opiates Screen Ql (U) Negative Normal Negative [facility] Comment on above: Order Comment: Speci men Type: URINE SPECIMENOrdering Facility: [facility] Address: [address] [place] [address] Result Comment: Cuto ff threshold at 300 ng/mL. Performed By: #### U TOX2 ####[facility] LABCLIA [id number] [place] [address] [place] oxyCODONE cutoff Screen (U) [Mass/Vol] Positive Abnormal Negative [facility] Comment on above: Order Comment: Speci men Type: URINE SPECIMENOrdering Facility: [facility] Address: [address] [place] [address] Result Comment: Cuto ff threshold at 100 ng/mL. Performed By: #### U TOX2 ####[facility] LABCLIA [id number] [place] [address] [place] Phencyclidine Ql (U) Negative Normal Negative [facility] Comment on above: Order Comment: Speci men Type: URINE SPECIMENOrdering Facility: [facility] Address: [address] [place] [address] Result Comment: Cuto ff threshold at 25 ng/mL. Performed By: #### U TOX2 ####[facility] LABCLIA [id number] [place] [address] [place] TYPE + SCREENon 11-12-2024 ABO O Normal [facility] Comment on above: Order Comment: Speci men Type: BLOOD SPECIMENOrdering Facility: [facility] Address: [address] [place] [address] Performed By: #### T SCR ####[facility] BANKIA [id number] [place] [address] [place] Rh Nom (Bld) Positive Normal [facility] Comment on above: Order Comment: Speci men Type: BLOOD SPECIMENOrdering Facility: [facility] Address: [address] [place] [address] Performed By: #### T SCR ####[facility] BLO[facility] BANKIA [id number] [place] [address] [place] TYPE AND SCREEN EXPIRATION 11/15/2024 23:59 Normal [facility] Comment on above: Order Comment: Speci men Type: BLOOD SPECIMENOrdering Facility: [facility] Address: [address] [place] [address] Performed By: #### T SCR ####[facility] BLOOD BANKIA [id number] [place] [address] [place] Urinalysis complete panel (U )on 11-12-2024 BACTERIA UL 1553.2 uL High Negative [facility] Comment on above: Order Comment: Speci men Type: URINE SPECIMENOrdering Facility: [facility] Address: [address] [place] [address] Performed By: #### 6 30-4, 85056-2 ####[facility] LABCLIA [id number] [place] [address] [place] Bilirubin Ql (U) 1+ Abnormal Negative [facility] Comment on above: Order Comment: Speci men Type: URINE SPECIMENOrdering Facility: [facility] Address: [address] [place] [address] Result Comment: Sugg est correlation with clinical findings and serum bilirubin if clinically indicated. Performed By: #### 6 30-4, 41388-8 ####[facility] LABCLIA [id number] [place] [address] [place] Clarity (Unsp spec) Cloudy Abnormal Clear [facility] Comment on above: Order Comment: Speci men Type: URINE SPECIMENOrdering Facility: [facility] Address: [address] [place] [address] Performed By: #### 6 30-4, 33413-9 ####[facility] LABCLIA [id number] [place] [address] [place] Color (U) [place]rie Abnormal Yellow [facility] Comment on above: Order Comment: Speci men Type: URINE SPECIMENOrdering Facility: [facility] Address: [address] [place] [address] Performed By: #### 6 30-4, 97504-6 ####[facility] LABCLIA [id number] [place] [id number] [place] Epithelial cells LM.HPF (Urine sed) [#/Area] None Seen Normal [facility] Comment on above: Order Comment: Speci men Type: URINE SPECIMENOrdering Facility: [facility] Address: [address] [place] [address] Performed By: #### 6 30-4, 18610-4 ####[facility] LABCLIA [id number] [address] [place] [address] [place] Glucose Test strip (U) [Mass/Vol] Negative Normal Negative [facility] Comment on above: Order Comment: Speci men Type: URINE SPECIMENOrdering Facility: [facility] Address: [address] [place] [address] Performed By: #### 6 30-4, 49387-5 ####[facility] LABCLIA [id number] [facility] [address] [place] [address] [place] Hemoglobin Ql (U) 3+ Abnormal Negative [facility] Comment on above: Order Comment: Speci men Type: URINE SPECIMENOrdering Facility: [facility] Address: [address] [place] [address] Performed By: #### 6 30-4, 84826-2 ####[facility] LABCLIA [id number] [facility] [address], [facility] [place] Hyaline casts (Urine sed) [#/Area] 0 /[LPF] Normal 0 /LPF [facility] Comment on above: Order Comment: Speci men Type: URINE SPECIMENOrdering Facility: [facility] Address: [address] [place] [address] Performed By: #### 6 30-4, 96029-4 ####[facility] LABCLIA [id number] [facility] [address] [place] [address] [place] Ketones Ql (U) Negative Normal Negative [facility] Comment on above: Order Comment: Speci men Type: URINE SPECIMENOrdering Facility: [facility] Address: [address] [place], [place] [address] Performed By: #### 6 30-4, 84929-6 ####[facility] LABCLIA [id number] [facility] [address] [place] [address] [place] Leukocyte esterase Test strip Ql (U) 2+ Abnormal Negative [facility] Comment on above: Order Comment: Speci men Type: URINE SPECIMENOrdering Facility: [facility] Address: [address] [place] [address] Performed By: #### 6 30-4, 80035-4 ####[facility] LABCLIA [id number] [address], [place] [address] [place] Nitrite Ql (U) Negative Normal Negative [facility] Comment on above: Order Comment: Speci men Type: URINE SPECIMENOrdering Facility: [facility] Address: [address] [place] [address] Performed By: #### 6 30-4, 75066-1 ####[facility] LABCLIA [id number] [address], [place] [address] [place] pH (U) 6.0 [pH] Normal <8.5 [facility] Comment on above: Order Comment: Speci men Type: URINE SPECIMENOrdering Facility: [facility] Address: [address] [place] [address] Performed By: #### 6 30-4, 69104-2 ####[facility] LABIA [id number] [address], [place] [address] [place] Protein (U) [Mass/Vol] 3+ Abnormal Negative Cl [facility] Comment on above: Order Comment: Speci men Type: URINE SPECIMENOrdering Facility: [facility] Address: [address] [place] [address] Performed By: #### 6 30-4, 73212-4 ####[facility] LABIA [id number] [address], [facility] [place] RBC LM.HPF (Urine sed) [#/Area] /[HPF] Abnormal 0-2 /HPF [facility] Comment on above: Order Comment: Speci men Type: URINE SPECIMENOrdering Facility: [facility] Address: [address] [place] [address] Performed By: #### 6 30-4, 72215-6 ####[facility] LABIA [id number] [place] [address] [place] Specific gravity (U) [Rel density] 1.019 Normal 1.005-1.030 [facility] Comment on above: Order Comment: Speci men Type: URINE SPECIMENOrdering Facility: [facility] Address: [address] [place] [address] Performed By: #### 6 30-4, 67579-9 ####[facility] LABIA [id number] [place] [address] [place] Urobilinogen Ql (U) 0.2 EU/dL Normal 0.2-1.0 EU/dL [facility] Comment on above: Order Comment: Speci men Type: URINE SPECIMENOrdering Facility: [facility] Address: [address] [place] [address] Performed By: #### 6 30-4, 45633-6 ####[facility] [id number] [place] [address] [place] WBC LM.HPF (Urine sed) [#/Area] /[HPF] Abnormal 0-5 /HPF [facility] Comment on above: Order Comment: Speci men Type: URINE SPECIMENOrdering Facility: [facility] Address: [address] [place] [address] Performed By: #### 6 30-4, 65442-8 ####[facility] [id number] [place] [address] [place] ALLIED HEALTHon 11-11-2024 ALLIED HEALTH Normal [facility] ALLIED HEALTH Normal [facility] ANTI PLT FACTOR 4 ABon 11-11 Heparin induced platelet IgG Marco Antonio (S) [Interp] Negative Normal Negative [facility] Comment on above: Order Comment: Speci men Type: BLOOD SPECIMENOrdering Facility: [facility] Address: [address] [place] [address] Result Comment: No a nti-platelet factor 4 IgG antibody is detected by ANDERS assay.Heparin-induced thrombocytopenia (HIT) is unlikely, but should be excluded based on clinical factors. Performed By: #### P LATF4 ####[facility] LABIA [id number] [address] [place] Platelet factor 4 Qn (PPP) 0.184 OD Normal <0.400 [facility] Comment on above: Order Comment: Speci men Type: BLOOD SPECIMENOrdering Facility: [facility] Address: [address] [place] [address] Result Comment: Not calculated Performed By: #### P LATF4 ####[facility] LABIA [id number] [place] [address] [place] Albumin Fld-[facility] 5 Albumin (Body fld) [Mass/Vol] <0.2 Normal See Comment [facility] Comment on above: Order Comment: Speci men Type: FLUID SPECIMENOrdering Facility: [facility] Address: [address] [place] [address] Result Comment: Body Fluid Albumin may be [...] document C49A. Joe PA: Clinical Laboratory Standards Lillie: 2007.2. Amy JACKSON. Serum to ascites albumin gradient. UpToDate. 2015. Accessed on November 15, 2015.This test was developed, and its performance characteristics determined by the [facility] Department of Pathology and Laboratory Medicine. It has not been cleared or approved by the FDA. The [facility] Department of Pathology and Laboratory Medicine is regulated under CLIA as qualified to perform high-complexity testing. This test is used for clinical purposes. It should not be regarded as investigational or for research. Performed By: #### 1 747-5, 1795-4, 92851-9, 2881-1 ####[facility] LABCLIA [id number] [place] [address] [place] Fluid Nom (Body fld) Abdomen Normal [facility] Comment on above: Order Comment: Speci men Type: FLUID SPECIMENOrdering Facility: [facility] Address: [address] [place] [address] Performed By: #### 1 747-5, 1795-4, 34019-5, 2881-1 ####[facility] LABCLIA [id number] [address] [place] Amylase Fld-cCncon 5 Amylase (Body fld) [Catalytic activity/Vol] 14 U/L Normal See Comment [facility] Comment on above: Order Comment: Speci men Type: FLUID SPECIMENOrdering Facility: [facility] Address: [address] [place] [address] Result Comment: PLEU RAL FLUIDS:Amylase measurement in [...] with other clinical and laboratory information.References:1. Florentino MLOINA, Makenzie Marte. Body fluid analysis: clinical utility and applicability of published studies to guide interpretation of todays laboratory testing in serous fluids. Crit Rev Clin Lab Sci, 2013;50(4-5):107-124.2. CLSI. Analysis of Body Fluids in Clinical Chemistry; Approved Guideline. CLSI document C49-A. PAULETTE Diaz: Clinical Laboratory Standards Lillie; 2007.3. Odalys Saenzarenhas RC, Star DJ. Use of cyst fluid CEA, CA19-9, and amylase for evaluation of pancreatic lesions. Clinical Biochemistry. 2009;42:8844-8497.This test was developed, and its performance characteristics determined by the [facility] Department of Pathology and Laboratory Medicine. It has not been cleared or approved by the FDA. The [facility] Department of Pathology and Laboratory Medicine is regulated under CLIA as qualified to perform high-complexity testing. This test is used for clinical purposes. It should not be regarded as investigational or for research. Performed By: #### 1 747-5, 1795-4, 89977-7, 2881-1 ####[facility] LABCLIA [id number] [place] [address] [place] Antithrombin Ag actual/philly l IA (PPP) [Relative mass conc]on 11-11-2024 Antithrombin Ag IA Qn (PPP) 32 % Low 80-120 [facility] Comment on above: Order Comment: Speci men Type: BLOOD SPECIMENOrdering Facility: [facility] Address: [address] [place] [address] Performed By: #### L [id number], HCOAG, 6303-2, 17105-7, 47127-0 ####[facility] LABCLIA [id number] [place] [address] [place] BODY FLUID CELL COUNTon 11-02 Clarity (Unsp spec) Clear Normal Clear [facility] Comment on above: Order Comment: Speci men Type: FLUID SPECIMENOrdering Facility: [facility] Address: [address] [place] [address] Performed By: #### C CBF, [id number] ####[facility] LABIA [id number] [place] [address] [place] Color (Body fld) Colorless Normal Yellow [facility] Comment on above: Order Comment: Speci men Type: FLUID SPECIMENOrdering Facility: [facility] Address: [address] [place] [address] Performed By: #### C CBF, [id number] ####[facility] LABCLIA [id number] [facility] [address] [place] RBC Manual cnt (Body fld) [#/Vol] 2000 /uL High <2000 [facility] Comment on above: Order Comment: Speci men Type: FLUID SPECIMENOrdering Facility: [facility] Address: [address] [place] [address] Performed By: #### C CBF, [id number] ####[facility]CL[facility] [id number] [place] [address] [place] Specimen source Nom (Body fld) Abdomen Normal [facility] Comment on above: Order Comment: Speci men Type: FLUID SPECIMENOrdering Facility: [facility] Address: [address] [place] [address] Performed By: #### C CBF, [id number] ####[facility] LABCLIA [id number] [facility] [address] [place] WBC Manual cnt (Body fld) [#/Vol] 70 /uL Normal <1000 [facility] Comment on above: Order Comment: Speci men Type: FLUID SPECIMENOrdering Facility: [facility] [facility] Address: [address] [place] [address] Performed By: #### C CBF, [id number] ####[facility] LABCLIA [id number] [facility] [address] [place] Bacteria Bld Culton 11-12-19 25 Bacteria identified Cx Nom (Bld) CULTURE, BLOOD: No growth 5 days GRAM STAIN: This blood culture had less than the recommended 8 ml per bottle, which could decrease the sensitivity of the test. Normal [facility] Comment on above: Performed By: #### 6 00-7 ####[facility]CL[facility] [id number] [facility] [address] [place] Bacteria identified Cx Nom (Bld) CULTURE, BLOOD: No growth 5 days Normal [facility] Comment on above: Performed By: #### 6 00-7 ####[facility]CLIA [id number] [address] [address] [place] Bacteria Fld Culton 11-12-19 25 Bacteria identified Cx Nom (Body fld) CULTURE, BODY FLD: No growth GRAM STAIN: No organisms seen Many Polymorphonuclear leukocytes Gram stain performed on cytospun specimen. Gram stain from primary specimen Normal [facility] Comment on above: Performed By: #### 6 35-3, 611-4 ####[facility]CLIA [id number] [address] [address] [place] Bacteria Spec Anaerobe Culto n 11-11-2024 Bacteria identified Anaer cx Nom (Unsp spec) Negative Normal [facility] Comment on above: Performed By: #### 6 35-3, 611-4 ####[facility]CLIA [id number] [address] [address] [place] Basic metabolic 2000 panelon 11-11-2024 Anion gap [Moles/Vol] 12 mmol/L Normal 8-15 [facility] Comment on above: Order Comment: Speci men Type: BLOOD SPECIMENOrdering Facility: [facility] Address: [address] [place] [address] Performed By: #### 2 276-4, 58944-5, 84310-1, 96869-4, 2777-1, 88515-8 ####[facility] LABIA [id number] [address] [address] [place] Calcium [Mass/Vol] 9.1 mg/dL Normal 8.5-10.2 [facility] Comment on above: Order Comment: Speci men Type: BLOOD SPECIMENOrdering Facility: [facility] Address: [address] [place] [address] Performed By: #### 2 276-4, 45716-9, 58559-8, 18644-5, 2777-1, 62300-7 ####[facility]CLIA [id number] [address] [address] [place] Chloride [Moles/Vol] 97 mmol/L Low 98-107 [facility] Comment on above: Order Comment: Speci men Type: BLOOD SPECIMENOrdering Facility: [facility] Address: [address] [place] [address] Performed By: #### 2 276-4, 28674-8, 63013-0, 92096-0, 7-1, 49408-5 ####[facility]CLIA [id number] [place] [address] [place] CO2 [Moles/Vol] 14 mmol/L Low 22-30 [facility] Comment on above: Order Comment: Speci men Type: BLOOD SPECIMENOrdering Facility: [facility] Address: [address] [place] [address] Performed By: #### 2 276-4, 06661-6, 60874-0, 41763-2, 7-1, 50652-1 ####[facility] LABIA [id number] [place] [address] [place] Creatinine [Mass/Vol] 1.35 mg/dL High 0.73-1.22 [facility] Comment on above: Order Comment: Speci men Type: BLOOD SPECIMENOrdering Facility: [facility] Address: [address] [place] [address] Performed By: #### 2 276-4, 74339-9, 36950-9, 87048-1, 7-1, 50070-4 ####[facility] LABIA [id number] [place] [address] [place] Creatinine and Glomerular filtration rate.predicted panel (S/P/Bld) 61 mL/min/1.73m??? Normal >=60 [facility] Comment on above: Order Comment: Speci men Type: BLOOD SPECIMENOrdering Facility: [facility] Address: [address] [place] [address] Result Comment: Patric mated Glomerular Filtration Rate [...] actual GFR. Performed By: #### 2 276-4, 05760-7, 92696-1, 52386-0, 2776-1, 26966-8 ####[facility] LABIA [id number] [place] [address] [place] Glucose [Mass/Vol] 292 mg/dL High 74-99 [facility] Comment on above: Order Comment: Ezekiel ramirez Type: BLOOD SPECIMENOrdering Facility: [facility] Address: [address] [place] [address] Result Comment: The [place] Diabetes Association (ADA) provides guidance for cutoff [...] Standards of Medical Care in Diabetes 2016, [place] [employer]. Diabetes Care. 2016.39(Suppl 1). Performed By: #### 2 276-4, 52441-3, 73068-6, 24771-7, 2776-1, 19633-3 ####[facility]CLIA [id number] [address] [address] [place] Potassium [Moles/Vol] 3.6 mmol/L Low 3.7-5.1 [facility] Comment on above: Order Comment: Speci men Type: BLOOD SPECIMENOrdering Facility: [facility] Address: [address] [place] [address] Performed By: #### 2 276-4, 39524-6, 91094-9, 78114-4, 2777-1, 59723-0 ####[facility] LABIA [id number] [place] [address] [place] Sodium [Moles/Vol] 123 mmol/L Low 136-144 [facility] Comment on above: Order Comment: Speci men Type: BLOOD SPECIMENOrdering Facility: [facility] Address: [address] [place] [address] Performed By: #### 2 276-4, 98172-8, 10451-7, 69337-7, 2777-1, 83344-5 ####[facility] LABIA [id number] [place] [address] [place] Urea nitrogen [Mass/Vol] 22 mg/dL Normal 9-24 [facility] Comment on above: Order Comment: Speci men Type: BLOOD SPECIMENOrdering Facility: [facility] Address: [address] [place] [address] Performed By: #### 2 276-4, 61292-0, 73536-7, 57760-3, 2777-1, 35777-5 ####[facility] [id number] [place] [address] [place] CARDIOLIPIN IGG ABSon 2024 Cardiolipin IgG IA Qn (S) <9.0 Normal <15.0 [facility] Comment on above: Order Comment: Speci men Type: BLOOD SPECIMENOrdering Facility: [facility] Address: [address] [place] [address] Result Comment: <15 GPL [id number] GPL Indeterminate>20 GPL PositiveThe following results were obtained with the BioPharmX QUANTA Lite TEZ IgG III ANDERS. Cardiolipin IgG values obtained with the different manufacturers' assay methods may not be used interchangeably. The magnitude of the reported IgG levels cannot be correlated to an endpoint titer. Performed By: #### 5 076-5KATHI CARDIM ####[facility] LABIA [id number] [address] [place] CARDIOLIPIN IGM ABSon 2024 Cardiolipin IgM IA Qn (S) <9.0 Normal <12.5 [facility] Comment on above: Order Comment: Speci men Type: BLOOD SPECIMENOrdering Facility: [facility] Address: [address] [place] [address] Result Comment: <12. 5 MPL Zfjkslkh88.5-20 MPL Indeterminate>20 MPL PositiveThe following results were obtained with the YodioA Lite TEZ IgM III ANDERS. Cardiolipin IgM values obtained with the different manufacturers' assay methods may not be used interchangeably. The magnitude of the reported IgM levels cannot be correlated to an endpoint titer.??? Performed By: #### 5 076-5KATHI CARDIM ####[facility] [id number] [place] [address] [place] CASE MANAGEMon 11-11-2024 CASE MANAGEM Normal [facility] CBC W Auto Differential pane l (Bld)on 11-11-2024 Basophils (Bld) [#/Vol] 0.04 10*3/uL Normal <0.11 [facility] Comment on above: Order Comment: Speci men Type: BLOOD SPECIMENOrdering Facility: [facility] Address: [address] [place] [address] Performed By: #### I PFR, 26070-0, 13929-4 ####[facility] LABIA [id number] [place] [address] [place] Basophils/100 WBC (Bld) 0.4 % Normal C [facility] Comment on above: Order Comment: Speci men Type: BLOOD SPECIMENOrdering Facility: [facility] Address: [address] [place] [address] Performed By: #### I PFR, 51304-5, ####[facility]CLIA [id number] [place] [address] [place] Differential cell count method Nom (Bld) Auto Normal [facility] Comment on above: Order Comment: Speci men Type: BLOOD SPECIMENOrdering Facility: [facility] Address: [address] [place] [address] Performed By: #### I PFR, 32058-1, ####[facility] LABCLIA [id number] [place] [address] [place] Eosinophils (Bld) [#/Vol] 0.35 10*3/uL Normal <0.46 [facility] Comment on above: Order Comment: Speci men Type: BLOOD SPECIMENOrdering Facility: [facility] Address: [address] [place] [address] Performed By: #### I PFR, 37828-4, ####[facility]CLIA [id number] [place] [address] [place] Eosinophils/100 WBC (Bld) 3.4 % Normal [facility] Comment on above: Order Comment: Speci men Type: BLOOD SPECIMENOrdering Facility: [facility] Address: [address] [place] [address] Performed By: #### I PFR, 08321-2, ####[facility]CLIA [id number] [place] [address] [place] Erythrocyte distribution width (RBC) [Ratio] 17.4 % High 11.5-15.0 [facility] Comment on above: Order Comment: Speci men Type: BLOOD SPECIMENOrdering Facility: [facility] Address: [address] [place] [address] Performed By: #### I PFR, 79680-5, ####[facility]CLIA [id number] [place] [address] [place] Hematocrit (Bld) [Volume fraction] 24.6 % Low 39.0-51.0 [facility] Comment on above: Order Comment: Speci men Type: BLOOD SPECIMENOrdering Facility: [facility] Address: [address] [place] [address] Performed By: #### I PFR, 92953-1, 66783-0 ####[facility]CLIA [id number] [place] [address] [place] Hemoglobin (Bld) [Mass/Vol] 8.4 g/dL Low 13.0-17.0 [facility] Comment on above: Order Comment: Speci men Type: BLOOD SPECIMENOrdering Facility: [facility] Address: [address] [place] [address] Performed By: #### I PFR, 37779-7, 13477-6 ####[facility]CLIA [id number] [place] [address] [place] Immature granulocytes (Bld) [#/Vol] 0.08 10*3/uL Normal <0.10 [facility] Comment on above: Order Comment: Speci men Type: BLOOD SPECIMENOrdering Facility: [facility] Address: [address] [place] [address] Performed By: #### I PFR, 62001-3, 52521-5 ####[facility]CLIA [id number] [place] [address] [place] Immature granulocytes/100 WBC (Bld) 0.8 % Normal [facility] Comment on above: Order Comment: Speci men Type: BLOOD SPECIMENOrdering Facility: [facility] Address: [address] [place] [address] Performed By: #### I PFR, 37799-6, 61359-8 ####[facility] LABCLIA [id number] [place] [address] [place] Lymphocytes (Bld) [#/Vol] 0.99 10*3/uL Low 1.00-4.00 [facility] Comment on above: Order Comment: Speci men Type: BLOOD SPECIMENOrdering Facility: [facility] Address: [address] [place] [address] Performed By: #### I PFR, 36601-3, 24307-1 ####[facility]CLIA [id number] [address] [place] Lymphocytes/100 WBC (Bld) 9.5 % Normal [facility] Comment on above: Order Comment: Speci men Type: BLOOD SPECIMENOrdering Facility: [facility] Address: [address] [place] [address] Performed By: #### I PFR, 65645-1, 14303-8 ####[facility] LABCLIA [id number] [address] [place] MCH (RBC) [Entitic mass] 31.9 pg Normal 26.0-34.0 [facility] Comment on above: Order Comment: Speci men Type: BLOOD SPECIMENOrdering Facility: [facility] Address: [address] [place] [address] Performed By: #### I PFR, 01051-4, 46224-5 ####[facility]CLIA [id number] [address] [place] MCHC (RBC) [Mass/Vol] 34.1 g/dL Normal 30.5-36.0 [facility] Comment on above: Order Comment: Speci men Type: BLOOD SPECIMENOrdering Facility: [facility] Address: [address] [place] [address] Performed By: #### I PFR, 71038-9, 53344-9 ####[facility]CLIA [id number] [address] [place] MCV (RBC) [Entitic vol] 93.5 fL Normal 80.0-100.0 C [facility] Comment on above: Order Comment: Speci men Type: BLOOD SPECIMENOrdering Facility: [facility] Address: [address] [place] [address] Performed By: #### I PFR, 20264-1, 55642-3 ####[facility]CLIA [id number] [facility] [address] [place] Monocytes (Bld) [#/Vol] 0.97 10*3/uL High <0.87 [facility] Comment on above: Order Comment: Speci men Type: BLOOD SPECIMENOrdering Facility: [facility] Address: [address] [place] [address] Performed By: #### I PFR, 86141-4, ####[facility] LABCLIA [id number] [place] [address] [place] Monocytes/100 WBC (Bld) 9.3 % Normal C [facility] Comment on above: Order Comment: Speci men Type: BLOOD SPECIMENOrdering Facility: [facility] Address: [address] [place] [address] Performed By: #### I PFR, 68112-8, 85453-4 ####[facility] LABCLIA [id number] [place] [address] [place] Neutrophils (Bld) [#/Vol] 8.00 10*3/uL High 1.45-7.50 [facility] Comment on above: Order Comment: Speci men Type: BLOOD SPECIMENOrdering Facility: [facility] Address: [address] [place] [address] Performed By: #### I PFR, 99692-6, 45719-3 ####[facility] LABCLIA [id number] [address] [address] [place] Neutrophils/100 WBC (Bld) 76.6 % Normal [facility] Comment on above: Order Comment: Speci men Type: BLOOD SPECIMENOrdering Facility: [facility] Address: [address] [place] [address] Performed By: #### I PFR, 98398-4, 74015-8 ####[facility]CLIA [id number] [place] [address] [place] Nucleated RBC (Bld) [#/Vol] 10*3/uL Normal <0.01 [facility] Comment on above: Order Comment: Speci men Type: BLOOD SPECIMENOrdering Facility: [facility] Address: [address] [place] [address] Performed By: #### I PFR, 52486-0, 55938-3 ####[facility] LABCLIA [id number] [place] [address] [place] Nucleated RBC/100 WBC (Bld) [Ratio] 0.0 /100 WBC Normal [facility] Comment on above: Order Comment: Speci men Type: BLOOD SPECIMENOrdering Facility: [facility] Address: [address] [place] [address] Performed By: #### I PFR, 72966-8, 92310-1 ####[facility] LABIA [id number] [place] [address] [place] Platelet mean volume (Bld) [Entitic vol] 11.5 fL Normal 9.0-12.7 [facility] Comment on above: Order Comment: Speci men Type: BLOOD SPECIMENOrdering Facility: [facility] Address: [address] [place] [address] Performed By: #### I PFR, 29249-7, 33787-7 ####[facility] LABIA [id number] [place] [address] [place] Platelets (Bld) [#/Vol] 43 10*3/uL Low 150-400 C [facility] Comment on above: Order Comment: Speci men Type: BLOOD SPECIMENOrdering Facility: [facility] Address: [address] [place] [address] Performed By: #### I PFR, 05544-6, 53468-3 ####[facility]CLIA [id number] [place] [address] [place] RBC (Bld) [#/Vol] 2.63 10*6/uL Low 4.20-6.00 [facility] Comment on above: Order Comment: Speci men Type: BLOOD SPECIMENOrdering Facility: [facility] Address: [address] [place] [address] Performed By: #### I PFR, 93157-5, 51400-7 ####[facility] LABCLIA [id number] [place] [address] [place] WBC (Bld) [#/Vol] 10.43 10*3/uL Normal 3.70-11.00 [facility] Comment on above: Order Comment: Speci men Type: BLOOD SPECIMENOrdering Facility: [facility] Address: [address] [place] [address] Performed By: #### I PFR, 76442-9, 15496-9 ####[facility] LABCLIA [id number] [place] [address] [place] Basophils (Bld) [#/Vol] 0.06 10*3/uL Normal <0.11 [facility] Comment on above: Order Comment: Speci men Type: BLOOD SPECIMENOrdering Facility: [facility] Address: [address] [place] [address] Performed By: #### 5 5454-3, 18278-4 ####[facility]CLIA [id number] [place] [address] [place] Basophils/100 WBC (Bld) 0.4 % Normal [facility] Comment on above: Order Comment: Speci men Type: BLOOD SPECIMENOrdering Facility: [facility] Address: [address] [place] [address] Performed By: #### 5 5454-3, 94894-4 ####[facility]CLIA [id number] [place] [address] [place] Differential cell count method Nom (Bld) Auto Normal [facility] Comment on above: Order Comment: Speci men Type: BLOOD SPECIMENOrdering Facility: [facility] Address: [address] [place] [address] Performed By: #### 5 5454-3, 34842-9 ####[facility] LABCLIA [id number] [address], [place] [address] [place] Eosinophils (Bld) [#/Vol] 0.40 10*3/uL Normal <0.46 [facility] Comment on above: Order Comment: Speci men Type: BLOOD SPECIMENOrdering Facility: [facility] Address: [address] [place] [address] Performed By: #### 5 5454-3, 18321-5 ####[facility] LABCLIA [id number] [place] [address] [place] Eosinophils/100 WBC (Bld) 2.5 % Normal [facility] Comment on above: Order Comment: Speci men Type: BLOOD SPECIMENOrdering Facility: [facility] Address: [address] [place] [address] Performed By: #### 5 5454-3, 82979-0 ####[facility]CL[facility] [id number] [place] [address] [place] Erythrocyte distribution width (RBC) [Ratio] 18.0 % High 11.5-15.0 [facility] Comment on above: Order Comment: Speci men Type: BLOOD SPECIMENOrdering Facility: [facility] Address: [address] [place] [address] Performed By: #### 5 5454-3, 81192-1 ####[facility]CLIA [id number] [place] [address] [place] Hematocrit (Bld) [Volume fraction] 30.4 % Low 39.0-51.0 [facility] Comment on above: Order Comment: Speci men Type: BLOOD SPECIMENOrdering Facility: [facility] Address: [address] [place] [address] Performed By: #### 5 5454-3, 53842-7 ####[facility]CLIA [id number] [place] [address] [place] Hemoglobin (Bld) [Mass/Vol] 10.2 g/dL Low 13.0-17.0 [facility] Comment on above: Order Comment: Speci men Type: BLOOD SPECIMENOrdering Facility: [facility] Address: [address] [place] [address] Performed By: #### 5 5454-3, 24479-2 ####[facility]CL[facility] [id number] [place] [address] [place] Immature granulocytes (Bld) [#/Vol] 0.18 10*3/uL High <0.10 [facility] Comment on above: Order Comment: Speci men Type: BLOOD SPECIMENOrdering Facility: [facility] Address: [address] [place] [address] Performed By: #### 5 5454-3, 72487-1 ####[facility]CLIA [id number] [place] [address] [place] Immature granulocytes/100 WBC (Bld) 1.1 % Normal [facility] Comment on above: Order Comment: Speci men Type: BLOOD SPECIMENOrdering Facility: [facility] Address: [address] [place] [address] Performed By: #### 5 5454-3, 08223-2 ####[facility]CL[facility] [id number] [place] [address] [place] Lymphocytes (Bld) [#/Vol] 1.19 10*3/uL Normal 1.00-4.00 [facility] Comment on above: Order Comment: Speci men Type: BLOOD SPECIMENOrdering Facility: [facility] Address: [address] [place] [address] Performed By: #### 5 5454-3, 35323-1 ####[facility] LABIA [id number] [place] [address] [place] Lymphocytes/100 WBC (Bld) 7.6 % Normal [facility] Comment on above: Order Comment: Speci men Type: BLOOD SPECIMENOrdering Facility: [facility] Address: [address] [place] [address] Performed By: #### 5 5454-3, 88274-8 ####[facility]IA [id number] [place] [address] [place] MCH (RBC) [Entitic mass] 31.3 pg Normal 26.0-34.0 [facility] Comment on above: Order Comment: Speci men Type: BLOOD SPECIMENOrdering Facility: [facility] Address: [address] [place] [address] Performed By: #### 5 5454-3, 35227-4 ####[facility]IA [id number] [place] [address] [place] MCHC (RBC) [Mass/Vol] 33.6 g/dL Normal 30.5-36.0 [facility] Comment on above: Order Comment: Speci men Type: BLOOD SPECIMENOrdering Facility: [facility] Address: [address] [place] [address] Performed By: #### 5 5454-3, 91244-8 ####[facility] LABIA [id number] [place] [address] [place] MCV (RBC) [Entitic vol] 93.3 fL Normal 80.0-100.0 C [facility] Comment on above: Order Comment: Speci men Type: BLOOD SPECIMENOrdering Facility: [facility] Address: [address] [place] [address] Performed By: #### 5 5454-3, 73954-1 ####[facility] [id number] [address] [address] [place] Monocytes (Bld) [#/Vol] 1.36 10*3/uL High <0.87 [facility] Comment on above: Order Comment: Speci men Type: BLOOD SPECIMENOrdering Facility: [facility] Address: [address] [place] [address] Performed By: #### 5 5454-3, 14910-7 ####[facility] LABIA [id number] [place] [address] [place] Monocytes/100 WBC (Bld) 8.6 % Normal [facility] Comment on above: Order Comment: Speci men Type: BLOOD SPECIMENOrdering Facility: [facility] Address: [address] [place] [address] Performed By: #### 5 5454-3, 87168-7 ####[facility] LABIA [id number] [place] [address] [place] Neutrophils (Bld) [#/Vol] 12.55 10*3/uL High 1.45-7.50 [facility] Comment on above: Order Comment: Speci men Type: BLOOD SPECIMENOrdering Facility: [facility] Address: [address] [place] [address] Performed By: #### 5 5454-3, 25525-7 ####[facility] LABCLIA [id number] [place] [address] [place] Neutrophils/100 WBC (Bld) 79.8 % Normal [facility] Comment on above: Order Comment: Speci men Type: BLOOD SPECIMENOrdering Facility: [facility] Address: [address] [place] [address] Performed By: #### 5 5454-3, 42405-3 ####[facility] LABIA [id number] [address] [address] [place] Nucleated RBC (Bld) [#/Vol] 10*3/uL Normal <0.01 [facility] Comment on above: Order Comment: Speci men Type: BLOOD SPECIMENOrdering Facility: [facility] Address: [address] [place] [address] Performed By: #### 5 5454-3, 74231-5 ####[facility] LABIA [id number] [place] [address] [place] Nucleated RBC/100 WBC (Bld) [Ratio] 0.0 /100 WBC Normal [facility] Comment on above: Order Comment: Speci men Type: BLOOD SPECIMENOrdering Facility: [facility] Address: [address] [place] [address] Performed By: #### 5 5454-3, 23438-8 ####[facility]ITAL[facility] [id number] [place] [address] [place] Platelet mean volume (Bld) [Entitic vol] 12.1 fL Normal 9.0-12.7 [facility] Comment on above: Order Comment: Speci men Type: BLOOD SPECIMENOrdering Facility: [facility] Address: [address] [place] [address] Performed By: #### 5 5454-3, 49816-9 ####[facility] LABIA [id number] [address] [address] [place] Platelets (Bld) [#/Vol] 52 10*3/uL Low 150-400 C [facility] Comment on above: Order Comment: Speci men Type: BLOOD SPECIMENOrdering Facility: [facility] Address: [address] [place] [address] Result Comment: Resu lts checked and verified.No clot detected. Performed By: #### 5 5454-3, 80233-6 ####[facility] LABCLIA [id number] [place] [address] [place] RBC (Bld) [#/Vol] 3.26 10*6/uL Low 4.20-6.00 [facility] Comment on above: Order Comment: Speci men Type: BLOOD SPECIMENOrdering Facility: [facility] Address: [address] [place] [address] Performed By: #### 5 5454-3, 42318-6 ####[facility] LABCLIA [id number] [place] [address] [place] WBC (Bld) [#/Vol] 15.74 10*3/uL High 3.70-11.00 [facility] Comment on above: Order Comment: Speci men Type: BLOOD SPECIMENOrdering Facility: [facility] Address: [address] [place] [address] Performed By: #### 5 5454-3, 35674-6 ####[facility] [id number] [place] [address] [place] [facility]24 Carcinoembryonic Ag [Mass/Vol] 13.0 ng/mL High <=2.9 [facility] Comment on above: Order Comment: Speci men Type: BLOOD SPECIMENOrdering Facility: [facility] Address: [address] [place] [address] Result Comment: Carc inoembryonic antigen test is used as an aid in monitoring response to treatment or recurrence in patients with established colorectal, breast, lung, prostatic, pancreatic, and ovarian carcinomas. Clinical correlation is required.The Carcinoembryonic antigen test was performed using the Fiordaliza Prosodic Unicel DXI paramagnetic particle chemiluminescent immunoassay method. Results obtained with different assay methods or kits cannot be used interchangeably. Performed By: #### 2 039-6, 68012-6, 2532-0 ####[facility] LABIA [id number] [place] [address] [place] COAG CORE PANEL BLDon 2024 aPTT Coag (PPP) [Time] 41.3 s High 23.0-32.4 [facility] Comment on above: Order Comment: Ezekiel ramirez Type: BLOOD SPECIMENOrdering Facility: [facility] Address: [address] [place] [address] Performed By: #### C ORPNL ####[facility] LABIA [id number] [address] STATES OF [facility] Fibrinogen Coag (PPP) [Mass/Vol] 88 mg/dL Low 200-400 [facility] Comment on above: Order Comment: Ezekiel ramirez Type: BLOOD SPECIMENOrdering Facility: [facility] Address: [address] [place] [address] Result Comment: Sammichael le checked for clot.Result rechecked. Performed By: #### C ORPNL ####[facility] [id number] [address] INR Coag (PPP) [Relative time] 2.1 {INR} High 0.9-1.3 [facility] Comment on above: Order Comment: Ezekiel ramirez Type: BLOOD SPECIMENOrdering Facility: [facility] Address: [address] [place] [address] Result Comment: Sarah min K Antagonist (VKA) Therapeutic Range: INR 2 to 3 (Target INR of 2.5)Note: For patients treated with VKA drugs, such as warfarin, the [place] [employer] 2012 Guideline recommends [...] al. Chest 2012, 141:7S-47SNishimura RA, et al. [facility] 2017, 70: 252-289 Performed By: #### C ORPNL ####[facility] LABCLIA [id number] [place] [address] [place] PT Coag (PPP) [Time] 21.8 s High 9.7-13.0 [facility] Comment on above: Order Comment: Speci men Type: BLOOD SPECIMENOrdering Facility: [facility] Address: [address] [place] [address] Performed By: #### C ORPNL ####[facility] LABCLIA [id number] [place] [address] [place] CONSULTon 11-11-2024 CONSULT Normal [facility] CONSULT Normal [facility] CRP SerPl-mCncon 11-11-2024 CRP [Mass/Vol] 0.5 mg/dL Normal <0.9 [facility] Comment on above: Order Comment: Speci men Type: BLOOD SPECIMENOrdering Facility: [facility] Address: [address] [place] [address] Performed By: #### D ASHLEY, 1986-12 ####[facility] LABCLIA [id number] [place] [address] [place] CYTOLOGY NON-GYNon AP DISCLAIMER Normal [facility] Comment on above: Order Comment: Speci men Type: FLUID SPECIMENOrdering Facility: [facility] Address: [address] [place] [address] Result Comment: Shellie pugh Developed Test (LDT) Disclaimer:Performance characteristics of immunohistochemical, immunofluorescent, and chromogenic in-situ hybridization tests have been determined by the performing laboratory within [facility]'s Thai Torres Pathology and Laboratory Medicine Department ([facility], [facility], [facility], [facility], [facility], [facility], or [facility]) in a manner [...] stain appropriately. Performed By: #### C YTONON ####[facility] LABCLIA [id number] [place] [address] [place] CASE REPORT Normal [facility] Comment on above: Order Comment: Speci men Type: FLUID SPECIMENOrdering Facility: [facility] Address: [address] [place] [address] Result Comment: [facility] Cytology Report Case: [id number] Provider: Yaritza Juarez, Collected: 11/11/2024 05:14 PM [employer].CNPOrdering Location: [place] [address] Received: 11/11/2024 08:30 PMPathologist: Sameer Fournier MDSpecimen: Abdomen Performed By: #### C YTONON ####[facility] LABCLIA [id number] [place] [address] [place] CLINICAL HISTORY paracentesis fluid Normal [facility] Comment on above: Order Comment: Speci men Type: FLUID SPECIMENOrdering Facility: [facility] Address: [address] [place] [address] Performed By: #### C YTONON ####[facility] LABCLIA [id number] [address] [place] FINAL DIAGNOSIS Normal [facility] Comment on above: Order Comment: Speci men Type: FLUID SPECIMENOrdering Facility: [facility] Address: [address] [place] [address] Result Comment: A - Abdomen, Fluid Negative for malignant cells.The following cell blocks were associated with this case:A1\X09\Cell Block, Alcohol Fixed\X09\ at 1034 EDT Performed By: #### C YTONON ####[facility] LABCLIA [id number] [place] [address] [place] FINAL PERFORMING LAB Normal [facility] Comment on above: Order Comment: Speci men Type: FLUID SPECIMENOrdering Facility: [facility] Address: [address] [place] [address] Result Comment: Tech nical component, core carrier screening performed at: [facility], [address] [place] [address] CLIA: [id number] interpretation performed at: [facility], [address] [place] [address] CLIA# [id number] Director: Titi Voss MD Performed By: #### C YTONON ####[facility] LABCLIA [id number] [address] [place] GROSS DESCRIPTION A. Abdomen Normal [facility] Comment on above: Order Comment: Speci men Type: FLUID SPECIMENOrdering Facility: [facility] Address: [address] [place] [address] Result Comment: 1450 cc opaque lexis fluid . ThinPrep and Cell Block prepared. Performed By: #### C YTONON ####[facility] LABCLIA [id number] [place] [address] [place] Cancer Ag19-9 SerPl-aCncon 0 11-11-2024 Cancer Ag 19-9 Qn <2.0 Normal <36.0 [facility] Comment on above: Order Comment: Speci men Type: BLOOD SPECIMENOrdering Facility: [facility] Address: [address] [place] [address] Result Comment: [facility] er antigen 19-9 test is used as an aid in monitoring response to treatment or recurrence in patients with established pancreatic, hepatobiliary, or gastrointestinal malignancies. Clinical correlation is required.The CA 19-9 Antigen test was performed using the Fiordaliza Prosodic Unicel DXI paramagnetic particle chemiluminescent immunoassay method. Results obtained with different assay methods or kits cannot be used interchangeably. Performed By: #### 2 039-6, 22947-4, 2532-0 ####[facility] LABIA [id number] [place] [address] [place] Cardiolipin IgA Ser IA-aCnco n 11-11-2024 Cardiolipin IgA IA Qn (S) 9.7 [APL'U] Normal <12.0 [facility] Comment on above: Order Comment: Speci men Type: BLOOD SPECIMENOrdering Facility: [facility] Address: [address] [place] [address] Result Comment: <12 APL Gejmxnlz09-11 APL Indeterminate>20 APL PositiveThe following results were obtained with the YodioA [place] city [place]-the DATONGe TEZ IgA III ANDERS. Cardiolipin IgA values obtained with the different manufacturers' assay methods may not be used interchangeably. The magnitude of the reported IgA levels cannot be correlated to an endpoint titer. Performed By: #### 5 076-5, MELVIN ARMENTA ####[facility] [id number] [place] [address] [place] DIRECT BILIRUBIN BLOODon Bilirubin.conjugated [Mass/Vol] 1.1 mg/dL High <0.3 [facility] Comment on above: Order Comment: Meggani james Type: BLOOD SPECIMENOrdering Facility: [facility] Address: [address] [place] [address] Performed By: #### D ASHLEY, 1986-12 ####[facility] [id number] [place] [address] [place] ECG COMPLETEon 11-11-2024 ECG COMPLETE Normal [facility] [id number] 11-11-2024 ECG01 Normal [facility] Ferritin SerPl-mCncon 2024 Ferritin [Mass/Vol] 82.4 ng/mL Normal 30.3-565.7 [facility] Comment on above: Order Comment: Speci men Type: BLOOD SPECIMENOrdering Facility: [facility] Address: [address] [place] [address] Performed By: #### 2 276-4, 04282-0, 37756-2, 47977-3, 2777-1, 57889-6 ####[facility] LABCLIA [id number] [place] [address] [place] Fibrinogen PPP-mCncon 2024 Fibrinogen Coag (PPP) [Mass/Vol] 90 mg/dL Low 200-400 [facility] Comment on above: Order Comment: Speci men Type: BLOOD SPECIMENOrdering Facility: [facility] Address: [address] [place] [address] Result Comment: Samp le checked for clot.Result rechecked. Performed By: #### 3 255-7, 24242-5 ####[facility] LABCLIA [id number] [address] [place] HISTORY PHYSICALon HISTORY PHYSICAL Normal [facility] HYPERCOAG PANELon 11-11-2024 Activated protein C resistance Coag (PPP) [Time ratio] 2.10 Ratio Normal >1.96 [facility] Comment on above: Order Comment: Speci men Type: BLOOD SPECIMENOrdering Facility: [facility] Address: [address] [place] [address] Performed By: #### L [id number], HCOAG, 6303-2, 75422-9, 23811-9 ####[facility] LABCLIA [id number] [place] [address] [place] Antithrombin actual/normal Chromogenic method (PPP) [Rel catalytic activity/Vol] 30 % Low 84-138 [facility] Comment on above: Order Comment: Speci men Type: BLOOD SPECIMENOrdering Facility: [facility] Address: [address] [place] [address] Performed By: #### L [id number], HCOAG, 6303-2, 90886-2, 89294-3 ####[facility] LABCLIA [id number] [address] [place] aPTT Coag (Bld) [Time] 47.9 s High 24.0-35.1 [facility] Comment on above: Order Comment: Speci men Type: BLOOD SPECIMENOrdering Facility: [facility] Address: [address] [place] [address] Performed By: #### L [id number], HCOAG, 6303-2, 52392-4, 22796-6 ####[facility] LABCLIA [id number] [place] [address] [place] aPTT W excess hexagonal phase phospholipid Coag (PPP) [Time] 36.5 seconds Normal 34.0-51.8 [facility] Comment on above: Order Comment: Speci men Type: BLOOD SPECIMENOrdering Facility: [facility] Address: [address] [place] [address] Performed By: #### L [id number], HCOAG, 6303-2, 32800-6, 89725-4 ####[facility] LABIA [id number] [place] [address] [place] aPTT-LA w 1:1 PNP Coag (PPP) [Time] 32.5 seconds Normal <33.2 [facility] Comment on above: Order Comment: Speci men Type: BLOOD SPECIMENOrdering Facility: [facility] Address: [address] [place] [address] Result Comment: This test was developed, and its performance characteristics determined by the [facility] Department of Pathology and Laboratory Medicine. It has not been cleared or approved by the FDA. The [facility] Department of Pathology and Laboratory Medicine is regulated under CLIA as qualified to perform high-complexity testing. This test is used for clinical purposes. It should not be regarded as investigational or for research. Performed By: #### L [id number], HCOAG, 6303-2, 42504-3, 02753-3 ####[facility] LABCLIA [id number] [place] [address] [place] Coagulation factor VIII activity actual/normal Coag (PPP) [Relative time] 332 % High 50-173 [facility] Comment on above: Order Comment: Speci men Type: BLOOD SPECIMENOrdering Facility: [facility] Address: [address] [place] [address] Performed By: #### L [id number], HCOAG, 6303-2, 25071-6, 66351-4 ####[facility]CLIA [id number] [place] [address] [place] Coagulation factor X activated act Coag Qn (PPP) <0.10 Normal <0.10 [facility] Comment on above: Order Comment: Speci men Type: BLOOD SPECIMENOrdering Facility: [facility] Address: [address] [place] [address] Result Comment: This test was developed, and its performance characteristics determined by the [facility] Department of Pathology and Laboratory Medicine. It has not been cleared or approved by the FDA. The [facility] Department of Pathology and Laboratory Medicine is regulated under CLIA as qualified to perform high-complexity testing. This test is used for clinical purposes. It should not be regarded as investigational or for research. Performed By: #### L [id number], HCOAG, 6303-2, 13580-6, 40740-7 ####[facility] LABCLIA [id number] [place] [address] [place] Delta dRVVT Coag (PPP) [Time diff] 2.2 delta seconds Normal <7.1 [facility] Comment on above: Order Comment: Speci men Type: BLOOD SPECIMENOrdering Facility: [facility] Address: [address] [place] [address] Performed By: #### L [id number], HCOAG, 6303-2, 04998-5, 48158-2 ####[facility]CLIA [id number] [place] [address] [place] dRVVT W excess hexagonal phase phospholipid actual/normal Coag (PPP) [Relative time] 34.3 seconds Normal 34.2-47.9 [facility] Comment on above: Order Comment: Speci men Type: BLOOD SPECIMENOrdering Facility: [facility] Address: [address] [place] [address] Performed By: #### L [id number], HCOAG, 6303-2, 71461-8, 87087-3 ####[facility]CL[facility] [id number] [place] [address] [place] Protein C actual/normal Coag (PPP) [Relative time] 24 % Low 76-147 [facility] Comment on above: Order Comment: Speci men Type: BLOOD SPECIMENOrdering Facility: [facility] Address: [address] [place] [address] Performed By: #### L [id number], HCOAG, 6303-2, 03929-8, 43853-5 ####[facility]CL[facility] [id number] [place] [address] [place] Protein S actual/normal Coag (PPP) [Relative time] 28 % Low 59-152 [facility] Comment on above: Order Comment: Speci men Type: BLOOD SPECIMENOrdering Facility: [facility] Address: [address] [place] [address] Performed By: #### L [id number], HCOAG, 6303-2, 39731-9, 78028-7 ####[facility]CL[facility] [id number] [place] [address] [place] Protein S Free Ag actual/normal IA (PPP) [Relative mass conc] 45 % Low 55-148 [facility] Comment on above: Order Comment: Speci men Type: BLOOD SPECIMENOrdering Facility: [facility] Address: [address] [place] [address] Performed By: #### L [id number], HCOAG, 6303-2, 50666-9, 42070-4 ####[facility]CLIA [id number] [place] [address] [place] Thrombin time Coag (PPP) [Time] 20.0 seconds High <18.6 [facility] Comment on above: Order Comment: Meggani james Type: BLOOD SPECIMENOrdering Facility: [facility] Address: [address] [place] [address] Performed By: #### L [id number], HCOAG, 6303-2, 56262-2, 08942-3 ####[facility]CLIA [id number] [facility] [address] HYPERCOAG PANEL INTERPon INTERPRETATION (HYPERCOAG) Normal [facility] Comment on above: Order Comment: Ezekiel james Type: BLOOD SPECIMENOrdering Facility: [facility] Address: [address] [place], [place] [address] [address] Result Comment: Abno rmal - see comment [...] negative for the c.*97G>A variant (legacy name 11109C>A) in the 3' untranslated region of the [...] phase phospholipid neutralization. Performed By: #### L [id number], HCOAG, 6303-2, 05986-6, 65648-1 ####[facility]CL[facility] [id number] [place] [address] [place] Pathologist name Reviewed by Julia Howell M.D., Ph.D Normal [facility] Comment on above: Order Comment: Speci men Type: BLOOD SPECIMENOrdering Facility: [facility] Address: [address] [place] [address] Performed By: #### L [id number], HCOAG, 6303-2, 14349-9, 21127-4 ####[facility]CLIA [id number] [place] [address] [place] Haptoglob SerPl-mCncon 11-11 Haptoglobin [Mass/Vol] 15 mg/dL Low 31-238 [facility] Comment on above: Order Comment: Ezekiel ramirez Type: BLOOD SPECIMENOrdering Facility: [facility] Address: [address] [place] [address] Performed By: #### 2 4362-6, 4542-7 ####[facility] LABIA [id number] [place] [address] [place] HbA1c (Bld)on 11-11-2024 Average glucose Estimated from glycated hemoglobin (Bld) [Mass/Vol] 154 mg/dL Normal [facility] Comment on above: Order Comment: Ezekiel [facility] Type: BLOOD SPECIMENOrdering Facility: [facility] Address: [address] [place] [address] Result Comment: eAG: (Estimated average glucose) is a calculated value from HgbA1c and is market survey representative of the average blood glucose level in the last 2-3 month period. Performed By: #### 5 5454-3, 64231-8 ####[facility]CLIA [id number] [address] STATES OF [facility] HbA1c (Bld) [Mass fraction] 7.0 % High 4.3-5.6 [facility] Comment on above: Order Comment: Ezekiel ramirez Type: BLOOD SPECIMENOrdering Facility: [facility] Address: [address] [place] [address] Result Comment: Amer [place] Diabetes Association guidelines indicate that patients with HgbA1c in the range 5.7-6.4% are at increased risk for development of diabetes, and intervention by lifestyle modification may be beneficial. HgbA1c greater or equal to 6.5% is considered diagnostic of diabetes. Performed By: #### 5 5454-3, 01429-4 ####[facility]CLIA [id number] [address] [place] [address] [place] Hepatic function 2000 panelo n 11-11-2024 Albumin [Mass/Vol] 2.1 g/dL Low 3.9-4.9 [facility] Comment on above: Order Comment: Speci men Type: BLOOD SPECIMENOrdering Facility: [facility] Address: [address] [place] [address] Performed By: #### 2 276-4, 33989-5, 07798-6, 73897-1, 2777-1, 42324-7 ####[facility]CLIA [id number] [address] [place] [address] [place] ALP [Catalytic activity/Vol] 310 U/L High 38-113 [facility] Comment on above: Order Comment: Speci men Type: BLOOD SPECIMENOrdering Facility: [facility] Address: [address] [place] [address] Performed By: #### 2 276-4, 59532-2, 10687-9, 73673-2, 2777-1, 83983-4 ####[facility] LABIA [id number] [place] [address] [place] ALT [Catalytic activity/Vol] 31 U/L Normal 10-54 [facility] Comment on above: Order Comment: Speci men Type: BLOOD SPECIMENOrdering Facility: [facility] Address: [address] [place] [address] Performed By: #### 2 276-4, 97038-7, 36971-5, 40417-2, 2777-1, 94477-9 ####[facility] [id number] [address] [address] [place] AST [Catalytic activity/Vol] 44 U/L High 14-40 [facility] Comment on above: Order Comment: Speci men Type: BLOOD SPECIMENOrdering Facility: [facility] Address: [address] [place] [address] Performed By: #### 2 276-4, 91467-6, 80662-6, 31948-9, 7-1, ####[facility] LABCLIA [id number] [address] [place] [address] [place] Bilirubin [Mass/Vol] 1.6 mg/dL High 0.2-1.3 [facility] Comment on above: Order Comment: Speci men Type: BLOOD SPECIMENOrdering Facility: [facility] Address: [address] [place] [address] Performed By: #### 2 276-4, 29349-2, 49244-3, 13750-3, 2776-1, ####[facility] LABIA [id number] [address] [place] [address] [place] Bilirubin.conjugated [Mass/Vol] 1.0 mg/dL High <0.3 [facility] Comment on above: Order Comment: Speci men Type: BLOOD SPECIMENOrdering Facility: [facility] Address: [address] [place] [address] Performed By: #### 2 276-4, 73840-0, 14977-7, 82012-1, 2776-1, ####[facility] LABIA [id number] [address] [place] [address] [place] Protein [Mass/Vol] 5.3 g/dL Low 6.3-8.0 [facility] Comment on above: Order Comment: Speci men Type: BLOOD SPECIMENOrdering Facility: [facility] Address: [address] [place], [place] [address] Performed By: #### 2 276-4, 05649-3, 01213-5, 83699-5, 2776-1, ####[facility] LABIA [id number] [address] [address] [place] IMMATURE PLATELET FRACTIONon 11-11-2024 Platelets reticulated/100 platelets Auto (Bld) 7.7 % High 0.9-7.2 [facility] Comment on above: Order Comment: Speci men Type: BLOOD SPECIMENOrdering Facility: [facility] Address: [address] [place] [address] Performed By: #### I PFR, 70991-8, 98796-9 ####[facility] LABCLIA [id number] [place] [address] [place] Iron and Iron binding capaci ty panelon 11-11-2024 Iron [Mass/Vol] 34 ug/dL Low 41-186 [facility] Comment on above: Order Comment: Speci men Type: BLOOD SPECIMENOrdering Facility: [facility] Address: [address] [place] [address] Performed By: #### 2 276-4, 71476-0, 03621-5, 52846-5, 2777-1, 13562-0 ####[facility] LABCLIA [id number] [address] [place] Iron binding capacity [Mass/Vol] 180 ug/dL Low 232-386 [facility] Comment on above: Order Comment: Speci men Type: BLOOD SPECIMENOrdering Facility: [facility] Address: [address] [place] [address] Performed By: #### 2 276-4, 58169-0, 65964-6, 62167-9, 7-1, 71240-4 ####[facility] LABCLIA [id number] [place] [address] [place] Iron/TIBC [Molar ratio] 18.9 % Normal 15.0-57.0 C [facility] Comment on above: Order Comment: Speci men Type: BLOOD SPECIMENOrdering Facility: [facility] Address: [address] [place] [address] Performed By: #### 2 276-4, 63598-2, 29412-5, 06374-1, 7-1, 11680-4 ####[facility] LABCLIA [id number] [place] [address] [place] LDH SerPl-[facility] 11-11-2024 LDH [Catalytic activity/Vol] 321 U/L High 135-225 [facility] Comment on above: Order Comment: Speci men Type: BLOOD SPECIMENOrdering Facility: [facility] Address: [address] [place] [address] Performed By: #### 2 039-6, 29784-4, 2532-0 ####[facility] [id number] [place] [address] [place] Lipase Fld-[facility] 11-11-2024 Lipase (Body fld) [Catalytic activity/Vol] 29 U/L Normal See Comment [facility] Comment on above: Order Comment: Speci men Type: FLUID SPECIMENOrdering Facility: [facility] Address: [address] [place] [address] Result Comment: Pleu ral fluids: Lipase measurement [...] document C49A. PAULETTE Diaz: Clinical Laboratory Standards Lillie: 2007.2. David Guillory. A review of pancreatic cyst fluid analysis in the differential diagnosis of pancreatic cyst lesions. [employer] [employer] 2013:0:1-16. Performed By: #### 1 747-5, 1795-4, 08663-8, 2881-1 ####[facility] LABIA [id number] [place] [address] [place] Lupus anticoagulant neutrali zation platelet Coag Ql (PPP)on 11-11-2024 aPTT Coag (Bld) [Time] 56.8 s High 30.2-43.0 [facility] Comment on above: Order Comment: Speci james Type: BLOOD SPECIMENOrdering Facility: [facility] Address: [address] [place] [address] Result Comment: This test was developed, and its performance characteristics determined by the [facility] Department of Pathology and Laboratory Medicine. It has not been cleared or approved by the FDA. The [facility] Department of Pathology and Laboratory Medicine is regulated under CLIA as qualified to perform high-complexity testing. This test is used for clinical purposes. It should not be regarded as investigational or for research. Performed By: #### L CW1935, HCOAG, 6303-2, 93292-7, 62046-2 ####[facility]CL[facility] [id number] [address] [address] [place] aPTT Coag (Bld) [Time] 36.5 s Normal 31.5-38.3 [facility] Comment on above: Order Comment: Speci men Type: BLOOD SPECIMENOrdering Facility: [facility] Address: [address] [place] [address] Result Comment: This test was developed, and its performance characteristics determined by the [facility] Department of Pathology and Laboratory Medicine. It has not been cleared or approved by the FDA. The [facility] Department of Pathology and Laboratory Medicine is regulated under CLIA as qualified to perform high-complexity testing. This test is used for clinical purposes. It should not be regarded as investigational or for research. Performed By: #### L [id number], HCOAG, 6303-2, 87370-2, 70141-0 ####[facility] LABCLIA [id number] [address] [address] [place] PLATELET NEUT 0.0 Seconds Normal <1.9 [facility] Comment on above: Order Comment: Speci james Type: BLOOD SPECIMENOrdering Facility: [facility] Address: [address] [place] [address] Result Comment: This test was developed, and its performance characteristics determined by the [facility] Department of Pathology and Laboratory Medicine. It has not been cleared or approved by the FDA. The [facility] Department of Pathology and Laboratory Medicine is regulated under CLIA as qualified to perform high-complexity testing. This test is used for clinical purposes. It should not be regarded as investigational or for research. Performed By: #### L [id number], HCOAG, 6303-2, 16468-4, 74591-9 ####[facility] LABCLIA [id number] [facility] [address] [place] [address] [place] MANUAL DIFFERENTIAL, BODY FL UIDon 11-11-2024 DIF TTL, BODY FLUID 100 cells counted Normal [facility] Comment on above: Order Comment: Speci men Type: FLUID SPECIMENOrdering Facility: [facility] Address: [address] [place] [address] Performed By: #### C CBF, [id number] ####[facility] LABCLIA [id number] [facility] [address] [place] [address] [place] LYMPH%, BF 37 % High 18-36 [facility] Comment on above: Order Comment: Speci men Type: FLUID SPECIMENOrdering Facility: [facility] Address: [address] [place] [address] Performed By: #### C CBF, [id number] ####[facility] LABCLIA [id number] [facility] [address] [place] [address] [place] MACRO%, BF 21 % Low 64-80 [facility] Comment on above: Order Comment: Speci men Type: FLUID SPECIMENOrdering Facility: [facility] Address: [address] [place] [address] Performed By: #### C CBF, [id number] ####[facility] LABCLIA [id number] [facility] [address] [place] [address] [place] MESO %, BF 12 % High 0-2 [facility] Comment on above: Order Comment: Speci men Type: FLUID SPECIMENOrdering Facility: [facility] Address: [address] [place] [address] Performed By: #### C CBF, [id number] ####[facility]CLIA [id number] [place] [address] [place] NEUT%, BF 26 % High 0-1 [facility] Comment on above: Order Comment: Speci men Type: FLUID SPECIMENOrdering Facility: [facility] Address: [address] [place] [address] Performed By: #### C CBF, [id number] ####[facility] LABCLIA [id number] [place] [address] [place] REAC LYMPH %, BF 4 % Normal [facility] Comment on above: Order Comment: Speci men Type: FLUID SPECIMENOrdering Facility: [facility] Address: [address] [place] [address] Performed By: #### C CBF, [id number] ####[facility] LABIA [id number] [place] [address] [place] MEDICAL EMERon 11-11-2024 MEDICAL KRISTINA Normal [facility] MEDICAL KRISTINA Normal [facility] Magnesium SerPl-mCncon 11-11 Magnesium [Mass/Vol] 2.3 mg/dL Normal 1.7-2.3 [facility] Comment on above: Order Comment: Speci men Type: BLOOD SPECIMENOrdering Facility: [facility] Address: [address] [place] [address] Performed By: #### 2 276-4, 32362-6, 89418-8, 50603-1, 2777-1, 14270-4 ####[facility] LABIA [id number] [place] [address] [place] NURSING PROGon 11-11-2024 NURSING PROG Normal [facility] PLT DEP.AB, UNF. HEPARINon 0 11-11-2024 % REL HIGH DOSE HEP PORCINE 0 % Normal [facility] Comment on above: Order Comment: Speci men Type: BLOOD SPECIMENOrdering Facility: [facility] Address: [address] [place] [address] Performed By: #### S ERORE ####[facility] LABORATORIESCLIA [id number] [place] [address] % REL LOW DOSE HEP PORCINE 0 % Normal [facility] Comment on above: Order Comment: Speci men Type: BLOOD SPECIMENOrdering Facility: [facility] Address: [address] [place] [address] Performed By: #### S ERORE ####[facility] LABORATORIESCLIA [id number] [place] [address] SEROTONIN REL INTERP See Note Normal [facility] Comment on above: Order Comment: Speci men Type: BLOOD SPECIMENOrdering Facility: [facility] Address: [address] [place] [address] Result Comment: This patient's specimen demonstrates a [...] Additionalinformation regarding diagnosis of HIT is available [facility].[employer].INTERPRETIVE INFORMATION: ABRAHAM, Unfractionated HeparinThis test was developed and its performance characteristicsdetermined by [employer]. It has not been cleared orapproved by the [place] Food and Drug Administration. This test wasperformed in a CLIA certified laboratory and is intended forclinical purposes.Performed By: [facility] [place], [place] [address]Ckjovdxvvq Director: Lizandro Ordonez MD, PhDCLIA Number: [id number] Performed By: #### S ERORE ####[facility] LABORATORIESCLIA [id number] [place] [address] ABRAHAM, UNFRACTIONATED HEPARIN Negative Normal Negative [facility] Comment on above: Order Comment: Speci men Type: BLOOD SPECIMENOrdering Facility: [facility] Address: [address] [place], [place] [address] Performed By: #### S [facility] ####[facility] [id number] [place] [address] PROTHROMBIN GENE PCRon 11-11 PROTHROMBIN GENE MUTATION Normal [facility] Comment on above: Order Comment: Speci men Type: BLOOD SPECIMENOrdering Facility: [facility] Address: [address] [place] [address] Result Comment: Prot hrombin Gene MutationLaboratory Accession Number: [id number]:NORMALInterpretation:The DNA sample is negative for the c.*97G>A variant (legacy ondp72642C>A) in the 3' untranslated region of the Factor II (F2) gene.This result is not associated with an increased risk of thromboembolicdisease. Thromboembolic disease is a multifactorial disorder and othercauses are not excluded by this result.Methodology:Isolated Genomic DNA from the patient's blood specimen is evaluatedfor the c*97G>A (g.15952375) variant of the F2 gene [RefSeqNM_000506.53;GRCh38/hg38] by multiplex polymerase chain reaction (PCR)followed by melting curve analysis.Limitations:This assay is designed to detect the c.*97G>A (25319G>A) variant inthe F2 gene. Uncommon variants or single nucleotide polymorphisms mayaffect binding of probes and may rarely result in false negative,false positive or indeterminate results. This assay does not detectother disease-associated rare variants in F2 or other causes ofthromboembolic disease.Disclaimer:This test was developed and its performance characteristics determinedby [facility]'s Pathology and Laboratory Medicine Department. Ithas not been cleared or approved by the FDA. [facility]'s[facility] Laboratory Medicine Department is regulated under CLIAas certified to perform high-complexity testing. This test is used forclinical purposes. It should not be regarded as investigational or forresearch.Test performed at [facility], [address] [place], [place] [id number]. CLIA Number: [id number]:1) Inheritied Thrombophilias in . ACOG Practice Bulletin. No.197. [employer]. ObseteGynecol 2018;132:e18-34.2) Lindseyt SR, Kinsey FR, Jeremy PH, and Bernice RM. A commongenetic variation in the 3'-untranslated region of the prothrombingene is associated with elevated plasma prothrombin levels and anincrease in venous thrombosis. Blood 88:3698-703, 1995.3) Rica I, Justus V, Nayan C, Emily Carmona. Gmanqpafwwp83558U>T: 16 new cases, association with the 60923P>G polymorphism,and literature review. J Thromb Haemost. 2009;9:1585-7.Interpretation performed at remote location (R0A1) by Fifi España MD Performed By: #### P TGEN ####[facility] [id number] [place] [address] [place] [facility] PT panel Coag (PPP)on 2024 INR Coag (PPP) [Relative time] 2.3 {INR} High 0.9-1.3 [facility] Comment on above: Order Comment: Speci men Type: BLOOD SPECIMENOrdering Facility: [facility] Address: [address] [place] [address] Result Comment: Sarah min K Antagonist (VKA) Therapeutic Range: INR 2 to 3 (Target INR of 2.5)Note: For patients treated with VKA drugs, such as warfarin, the [place] [employer] 2012 Guideline recommends [...] 2017, 70: 252-289 Performed By: #### P [facility], 20782-3 ####[facility] [id number] [place] [address] [place] PT Coag (PPP) [Time] 23.1 s High 9.7-13.0 [facility] Comment on above: Order Comment: Speci men Type: BLOOD SPECIMENOrdering Facility: [facility] Address: [address] [place] [address] Performed By: #### P [facility], 89935-2 ####[facility] [id number] [place] [address] [place] INR Coag (PPP) [Relative time] 2.1 {INR} High 0.9-1.3 [facility] Comment on above: Order Comment: Speci men Type: BLOOD SPECIMENOrdering Facility: [facility] Address: [address] [place] [address] Result Comment: Sarah min K Antagonist (VKA) Therapeutic Range: INR 2 to 3 (Target INR of 2.5)Note: For patients treated with VKA drugs, such as warfarin, the [place] [employer]icians 2012 Guideline recommends [...] al. Chest 2012, 141:7S-47SNishimura RA, et al. [facility] 2017, 70: 252-289 Performed By: #### 3 4528-0 ####[facility] [id number] [place] [id number] [place] PT Coag (PPP) [Time] 22.0 s High 9.7-13.0 [facility] Comment on above: Order Comment: Speci men Type: BLOOD SPECIMENOrdering Facility: [facility] Address: [address] [place] [address] Performed By: #### 3 4528-0 ####[facility] LABCLIA [id number] [place] [address] [place] PTT, ANTICOAGULANT THERAPYon 11-11-2024 aPTT Coag (PPP) [Time] EXTREMELY ABNORMA L RESULT. No clot detected at 320 seconds. Refer to anticoagulation nomogram for further actions. Critically abnormal (none) [facility] Comment on above: Order Comment: Speci men Type: BLOOD SPECIMENOrdering Facility: [facility] Address: [address] [place] [address] Result Comment: Resu lt rechecked.Sample checked for clot. Performed By: #### P TTAC, 59877-3 ####[facility] LABCLIA [id number] [place] [address] [place] Phosphate SerPl-ncon 11-11 Phosphate [Mass/Vol] 2.6 mg/dL Low 2.7-4.8 [facility] Comment on above: Order Comment: Speci men Type: BLOOD SPECIMENOrdering Facility: [facility] Address: [address] [place] [address] Performed By: #### 2 276-4, 35570-2, 77098-0, 27543-0, 2777-1, 94962-2 ####[facility] LABIA [id number] [place] [address] [place] Prot Fld-mCncon 11-11-2024 Protein (Body fld) [Mass/Vol] 0.2 g/dL Normal See Comment [facility] Comment on above: Order Comment: Speci men Type: FLUID SPECIMENOrdering Facility: [facility] Address: [address] [place] [address] Result Comment: Sero us fluids: Effusions are [...] document C49A. PAULETTE Diaz: Clinical Laboratory Standards Lillie: 2007. Performed By: #### 1 747-5, 1795-4, 08255-3, 2881-1 ####[facility] LABCLIA [id number] [place] [address] [place] Renal function 2000 panelon 11-11-2024 Albumin [Mass/Vol] 2.4 g/dL Low 3.9-4.9 [facility] Comment on above: Order Comment: Speci men Type: BLOOD SPECIMENOrdering Facility: [facility] Address: [address] [place] [address] Performed By: #### 2 4362-6, 4542-7 ####[facility] LABIA [id number] [place] [address] [place] Anion gap [Moles/Vol] 10 mmol/L Normal 8-15 [facility] Comment on above: Order Comment: Speci men Type: BLOOD SPECIMENOrdering Facility: [facility] Address: [address] [place] [address] Performed By: #### 2 4362-6, 4542-7 ####[facility]IA [id number] [place] [address] [place] Calcium [Mass/Vol] 9.3 mg/dL Normal 8.5-10.2 [facility] Comment on above: Order Comment: Speci men Type: BLOOD SPECIMENOrdering Facility: [facility] Address: [address] [place] [address] Performed By: #### 2 4362-6, 454-7 ####[facility] LABCLIA [id number] [place] [address] [place] Chloride [Moles/Vol] 100 mmol/L Normal 98-107 [facility] Comment on above: Order Comment: Speci men Type: BLOOD SPECIMENOrdering Facility: [facility] Address: [address] [place] [address] Performed By: #### 2 4362-6, 4541-7 ####[facility]CL[facility] [id number] [place] [address] [place] CO2 [Moles/Vol] 13 mmol/L Low 22-30 [facility] Comment on above: Order Comment: Speci men Type: BLOOD SPECIMENOrdering Facility: [facility] Address: [address] [place] [address] Performed By: #### 2 4362-6, 454-7 ####[facility]CL[facility] [id number] [place] [address] [place] Creatinine [Mass/Vol] 1.26 mg/dL High 0.73-1.22 [facility] Comment on above: Order Comment: Speci men Type: BLOOD SPECIMENOrdering Facility: [facility] Address: [address] [place] [address] Performed By: #### 2 4362-6, 454-7 ####[facility] LABCL[facility] [id number] [place] [address] [place] Creatinine and Glomerular filtration rate.predicted panel (S/P/Bld) 66 mL/min/1.73m??? Normal >=60 [facility] Comment on above: Order Comment: Speci men Type: BLOOD SPECIMENOrdering Facility: [facility] Address: [address] [place] [address] Result Comment: Patric mated Glomerular Filtration Rate [...] GFR. Performed By: #### 2 4362-6, 4542-7 ####[facility] LABIA [id number] [address] [address] [place] Glucose [Mass/Vol] 255 mg/dL High 74-99 [facility] Comment on above: Order Comment: Speci men Type: BLOOD SPECIMENOrdering Facility: [facility] Address: [address] [place] [address] Result Comment: The [place] Diabetes Association (ADA) provides guidance for cutoff [...] Standards of Medical Care in Diabetes 2016, [place] Diabetes Association. Diabetes Care. 2016.39(Suppl 1). Performed By: #### 2 4362-6, 4541-7 ####[facility] LABIA [id number] [address] [address] [place] Phosphate [Mass/Vol] 2.5 mg/dL Low 2.7-4.8 [facility] Comment on above: Order Comment: Meggani men Type: BLOOD SPECIMENOrdering Facility: [facility] Address: [address] [place] [address] Performed By: #### 2 4362-6, 454-7 ####[facility] [id number] [place] [address] [place] Potassium [Moles/Vol] 4.4 mmol/L Normal 3.7-5.1 [facility] Comment on above: Order Comment: Speci men Type: BLOOD SPECIMENOrdering Facility: [facility] Address: [address] [place] [address] Performed By: #### 2 4362-6, 4542-7 ####[facility]CL[facility] [id number] [place] [address] [place] Sodium [Moles/Vol] 123 mmol/L Low 136-144 [facility] Comment on above: Order Comment: Speci men Type: BLOOD SPECIMENOrdering Facility: [facility] Address: [address] [place] [address] Performed By: #### 2 4362-6, 454-7 ####[facility] [id number] [place] [address] [place] Urea nitrogen [Mass/Vol] 21 mg/dL Normal 9-24 [facility] Comment on above: Order Comment: Speci men Type: BLOOD SPECIMENOrdering Facility: [facility] Address: [address] [place] [address] Performed By: #### 2 4362-6, 454-7 ####[facility] [id number] [place] [address] [place] Retics #on 11-11-2024 Reticulocytes (Bld) [#/Vol] 0.95472 10*3/uL High 0.018-0.100 [facility] Comment on above: Order Comment: Speci men Type: BLOOD SPECIMENOrdering Facility: [facility] [facility] Address: [address] [place] [address] Performed By: #### I PFR, 41125-6, 07192-1 ####[facility] LABIA [id number] [place] [address] [place] Reticulocytes (Bld) [#/Vol]o n 11-11-2024 Reticulocytes/100 RBC (Bld) 4.1 % High 0.4-2.0 [facility] Comment on above: Order Comment: Speci men Type: BLOOD SPECIMENOrdering Facility: [facility] Address: [address] [place] [address] Performed By: #### I PFR, 14725-5, 09144-3 ####[facility] LABCLIA [id number] [place] [address] [place] SEPSIS LACTATEon 11-11-2024 Lactate [Moles/Vol] 3.4 mmol/L High <=2.0 [facility] Comment on above: Order Comment: Speci men Type: BLOOD SPECIMENOrdering Facility: [facility] Address: [address] [place] [address] Performed By: #### S LACT ####[facility]IA [id number] [address] OF [facility] Lactate [Moles/Vol] 3.6 mmol/L High <=2.0 [facility] Comment on above: Order Comment: Speci men Type: BLOOD SPECIMENOrdering Facility: [facility] Address: [address] [place] [address] Performed By: #### S LACT ####[facility] [id number] [place] [address] [place] Screen dRVVTon 11-11-2024 dRVVT Coag (PPP) [Time] 42.6 s Normal 32.0-45.7 C [facility] Comment on above: Order Comment: Speci men Type: BLOOD SPECIMENOrdering Facility: [facility] Address: [address] [place] [address] Performed By: #### L [id number], HCOAG, 6303-2, 09381-3, 43528-2 ####[facility] LABCLIA [id number] [id number], [place] [address] [place] US ABD LIVER VASCULARon 04-1 US ABD LIVER VASCULAR Normal [facility] US DOPPLER COMPLETEon 2024 US DOPPLER COMPLETE Normal [facility] XR ABDOMEN 1V SUPINEon 11-11 XR ABDOMEN 1V SUPINE Normal [facility] XR CHEST 1V FRONTAL PORTon 0 11-11-2024 XR CHEST 1V FRONTAL PORT Normal [facility] XR CHEST 1V FRONTAL PORT Normal [facility] aPTT PPPon 11-11-2024 aPTT Coag (PPP) [Time] 41.7 s High 23.0-32.4 Cl [facility] Comment on above: Order Comment: Speci men Type: BLOOD SPECIMENOrdering Facility: [facility] Address: [address] [place] [address] Performed By: #### 3 255-7, 76108-0 ####[facility] LABCLIA [id number] [place] [address] [place] dRVVT Coag (PPP) [Time]on dRVVT factor substitution immediately after 1:2 addition of normal plasma Coag (PPP) [Time] 35.4 seconds Normal 32.0-45.7 [facility] Comment on above: Order Comment: Speci men Type: BLOOD SPECIMENOrdering Facility: [facility] Address: [address] [place] [address] Performed By: #### L [id number], HCOAG, 6303-2, 15355-3, 48172-3 ####[facility] LABCLIA [id number] [place] [address] [place] dRVVT/dRVVT.excess phospholipid Coag (PPP) [Ratio] 0.91 Normal <1.32 [facility] Comment on above: Order Comment: Speci men Type: BLOOD SPECIMENOrdering Facility: [facility] Address: [address] [place] [address] Performed By: #### L [id number], HCOAG, 6303-2, 95024-6, 34349-7 ####[facility] LABCLIA [id number] [place] [address] [place] ALP [Catalytic activity/Vol] Ordered By: Kathie Powers on 11-10-2024 Serum or plasma alkaline phosphatase measurement 310 U/L High 40-129 [facility] ALT [Catalytic activity/Vol] Ordered By: Kathie Powers on 11-10-2024 Serum or plasma alanine aminotransferase (ALT) measurement 36 U/L <47 [facility] Absolute lymphocyte countOrd ered By: Kathie Powers on 11-10-2024 Lymphocytes Auto (Unsp spec) [#/Vol] 1.30 10*3/uL 0.83-4.51 [facility] Absolute neutrophil countOrd ered By: Kathie Powers on 11-10-2024 Absolute neutrophil count 16.2 X10^3/uL High 2.0-7.7 [facility] Albumin [Mass/Vol]Ordered By : Kathie Powers on 11-10-2024 Serum or plasma albumin measurement (mass/volume) 2.3 g/dL Low 3.5-5.0 [facility] Albumin/Globulin [Mass ratio ]Ordered By: Kathie Powers on 11-10-2024 Serum or plasma albumin/globulin mass ratio 0.7 RATIO Low 0.9-2.4 [facility] Anion gap [Moles/Vol]Ordered By: Kathie Powers on 11-10-2024 Anion gap in Serum or Plasma 11 5-15 [facility] Anion gap in Serum or Plasma Ordered By: Kathie Powers on 11-10-2024 Anion gap [Moles/Vol] 11 mmol/L 5-15 [facility] Automated lymphocyte count a s percentage of total leukocytesOrdered By: Kathie Powers on 11-10-2024 Lymphocytes/100 WBC Auto (Unsp spec) 6.6 % Low 19-41 [facility] BUN/creatinine ratioOrdered By: Kathie Powers on 11-10-2024 Urea nitrogen/Creatinine [Mass ratio] 16.6 mg/mg 10-20 [facility] BUN/creatinine ratio 16.6 RATIO 10-20 [facility] Bacteria LM.HPF (Urine sed) [#/Area]Ordered By: Kathie Powers on 11-10-2024 Urine sediment bacteria count by microscopy (number/high power field) 2+ /hpf None Seen [facility] Basophil percentageOrdered B y: Kathie Powers on 11-10-2024 Basophils/100 WBC (Bld) 0.5 % 0-1 [facility] Basophil percentage 0.5 % 0-1 [facility] Bilirubin Test strip Ql (U)O rdered By: Kathie Powers on 11-10-2024 Bilirubin Ql (U) Negative Negative [facility] Urine total bilirubin detection by test strip Negative Negative [facility] Bilirubin, totalOrdered By: Kathie Powers on 11-10-2024 Bilirubin [Mass/Vol] 2.09 mg/dL High 0.00-1.30 [facility] Bilirubin, total 2.09 mg/dL High 0.00-1.30 [facility] Calcium [Mass/Vol]Ordered By : Kathie Powers on 11-10-2024 Serum or plasma calcium measurement (mass/volume) 9.2 mg/dL 7.6-11.0 [facility] Carbon dioxide, total [Moles /volume] in Central venous bloodOrdered By: Kathie Powers on 11-10-2024 CO2 [Moles/Vol] 13.3 mmol/L Low 21.0-32.0 [facility] Carbon dioxide, total [Moles/volume] in Central venous blood 13.3 mmol/L Low 21.0-32.0 [facility] Chloride assayOrdered By: Paulette Powers on 11-10-2024 Chloride [Moles/Vol] 99 mmol/L 98-108 [facility] Chloride assay 99 mmol/L 98-108 [facility] Clarity (U)Ordered By: Kathie Powers on 11-10-2024 Urine clarity Turbid Clear [facility] Color (U)Ordered By: Kathie lucas on 11-10-2024 Urine color determination Brown Yellow [facility] Creatinine [Mass/Vol]Ordered By: Kathie Powers on 11-10-2024 Serum creatinine measurement (mass/volume) 1.13 mg/dL 0.70-1.20 [facility] Eosinophil percentageOrdered By: Kathie Powers on 11-10-2024 Eosinophils/100 WBC (Bld) 1.9 % 0-5 [facility] Eosinophil percentage 1.9 % 0-5 [facility] Erythrocyte distribution wid th (RBC) [Ratio]Ordered By: Kathie Powers on 11-10-2024 Erythrocyte distribution width ratio 18.1 % High 11.6-14.6 [facility] Erythrocyte distribution width standard deviation 62.1 fl High 35.1-43.9 [facility] Erythrocyte distribution wid th ratioOrdered By: Kathie Powers on 11-10-2024 Erythrocyte distribution width (RBC) [Ratio] 18.1 % High 11.6-14.6 [facility] Erythrocyte distribution wid th standard deviationOrdered By: Kathie Powers on 11-10-2024 Erythrocyte distribution width (RBC) [Ratio] 62.1 fl High 35.1-43.9 [facility] Estimation of creatinine carolina aranceOrdered By: Kathie Powers on 11-10-2024 Estimation of creatinine clearance 88.23 ml/min 50-250 [facility] GFR/1.73 sq M.predicted niki g non-blacks MDRD (S/P/Bld) [Vol rate/Area]Ordered By: Kathie Powers on 11-10-2024 Glomerular filtration rate (GFR) estimation/1.73 sq m using serum, plasma, or whole b 75 >60 [facility] Glomerular filtration rate ( GFR) estimation/1.73 sq m using serum, plasma, or whole bOrdered By: Kathie Powers on 11-10-2024 GFR/1.73 sq M.predicted among non-blacks MDRD (S/P/Bld) [Vol rate/Area] 75 mL/min/{1.73_m2} >60 [facility] Glucose Ql (U)Ordered By: Paulette Powers on 11-10-2024 Urine glucose detection Normal mg/dl Normal [facility] Glucose [Mass/Vol]Ordered By : Kathie Powers on 11-10-2024 Serum glucose measurement (mass/volume) 298 mg/dL High 70-99 [facility] Glucose measurement at bedsi deOrdered By: Kathie Powers on 11-10-2024 Glucose [Mass/Vol] 265 mg/dL High 74-106 [facility] Glucose measurement at bedside 265 mg/dL High 74-106 [facility] Hematocrit Auto (Bld) [Volum e fraction]Ordered By: Kathie Powers on 11-10-2024 Hematocrit (Bld) [Volume fraction] 32.9 % Low 40-54 [facility] Automated blood hematocrit (percentage) 32.9 % Low 40-54 [facility] Hemoglobin measurementOrdere d By: Kathie Powers on 11-10-2024 Hemoglobin (Bld) [Mass/Vol] 11.3 g/dL Low 13.0-16.5 [facility] Hemoglobin measurement 11.3 g/dL Low 13.0-16.5 [facility] Immature granulocytes/100 WB C Auto (Bld)Ordered By: Kathie Powers on 11-10-2024 Immature granulocytes/100 WBC (Bld) 1.100 % High 0.0-0.9 [facility] Automated immature granulocyte percentage 1.100 % High 0.0-0.9 [facility] International normalized rat io (INR) calculationOrdered By: Kathie Powers on 11-10-2024 International normalized ratio (INR) calculation 3.1 [facility] Ketones Test strip Ql (U)Ord ered By: Kathie Powers on 11-10-2024 Ketones Ql (U) 5 mg/dl High Negative [facility] Urine ketones detection by test strip 5 mg/dl High Negative [facility] Leukocyte esterase Test stri p Ql (U)Ordered By: Kathie Powers on 11-10-2024 Urine leukocyte esterase detection by dipstick 500 /ul High Negative [facility] Lymphocytes Auto (Unsp spec) [#/Vol]Ordered By: Kathie Powers on 11-10-2024 Absolute lymphocyte count 1.30 X10^3/uL 0.83-4.51 [facility] Lymphocytes/100 WBC Auto (Un sp spec)Ordered By: Kathie Powers on 11-10-2024 Automated lymphocyte count as percentage of total leukocytes 6.6 % Low 19-41 [facility] MCV (RBC) [Entitic vol]Order ed By: Kathie Powers on 11-10-2024 MCV (mean corpuscular volume) determination 92.7 fL 80-94 [facility] MCV (mean corpuscular volume ) determinationOrdered By: Kathie Powers on 11-10-2024 MCV (RBC) [Entitic vol] 92.7 fL 80-94 [facility] Mean corpuscular hemoglobin (MCH) determinationOrdered By: Kathie Powers on 11-10-2024 MCH (RBC) [Entitic mass] 31.8 pg 27.0-32.0 [facility] Mean corpuscular hemoglobin (MCH) determination 31.8 pg 27.0-32.0 [facility] Mean corpuscular hemoglobin concentration (MCHC) determinationOrdered By: Kathie Powers on 11-10-2024 Mean corpuscular hemoglobin concentration (MCHC) determination 34.3 g/dL 32-36 [facility] Mean platelet volume determi nationOrdered By: Kathie Powers on 11-10-2024 Mean platelet volume determination 12.2 fl High 6.2-12.0 [facility] Microscopic analysis of urin e for red blood cells (RBC)Ordered By: Kathie Powers on 11-10-2024 Microscopic analysis of urine for red blood cells (RBC) > 100 SEEN /hpf 0-5 [facility] Monocyte percentageOrdered B y: Kathie Powers on 11-10-2024 Monocytes/100 WBC (Bld) 6.9 % 0-10 [facility] Monocyte percentage 6.9 % 0-10 [facility] Mucus LM Ql (Urine sed)Order ed By: Kathie Powers on 11-10-2024 Mucus Ql (Urine sed) 0 SEEN /hpf [facility] Neutrophil percentageOrdered By: Kathie Powers on 11-10-2024 Neutrophils/100 WBC (Bld) 83.0 % High 47-70 [facility] Neutrophil percentage 83.0 % High 47-70 [facility] Nitrite Test strip Ql (U)Ord ered By: Kathie Powers on 11-10-2024 Nitrite Ql (U) Positive High Negative [facility] Urine nitrite test by dipstick Positive High Negative [facility] No Panel InformationOrdered By: Kathie Powers on 11-10-2024 58 U/L High <38 [facility] Nucleated red blood cell per centageOrdered By: Kathie Powers on 11-10-2024 Nucleated red blood cell percentage 0 % 0-5 [facility] Platelet countOrdered By: Paulette Powers on 11-10-2024 Platelets (Bld) [#/Vol] 58 10*3/uL Low 150-450 [facility] Platelet count 58 K/mm3 Low 150-450 [facility] Potassium (Unsp spec) [Mass/ Vol]Ordered By: Kathie Powers on 11-10-2024 Potassium measurement (mass/volume) 3.6 mmol/L 3.3-5.1 [facility] Potassium measurement (mass/ volume)Ordered By: Kathie Powers on 11-10-2024 Potassium (Unsp spec) [Mass/Vol] 3.6 mmol/L 3.3-5.1 [facility] Protein Test strip Ql (U)Ord ered By: Kathie Powers on 11-10-2024 Protein Ql (U) 500 mg/dl High Negative [facility] Urine protein assay by test strip, semi-quantitative 500 mg/dl High Negative [facility] Prothrombin timeOrdered By: Kathie Powers on 11-10-2024 PT Coag (PPP) [Time] 32.3 s High 11.7-14.9 [facility] Prothrombin time 32.3 SECONDS High 11.7-14.9 [facility] RBC Auto (Bld) [#/Vol]Ordere d By: Kathie Powers on 11-10-2024 RBC (Bld) [#/Vol] 3.55 10*6/uL Low 4.6-6.2 [facility] Automated blood erythrocyte count 3.55 M/mm3 Low 4.6-6.2 [facility] Serum creatinine measurement (mass/volume)Ordered By: Kathie Powers on 11-10-2024 Creatinine [Mass/Vol] 1.13 mg/dL 0.70-1.20 [facility] Serum globulin measurementOr dered By: Kathie Powers on 11-10-2024 Globulin (S) [Mass/Vol] 3.4 g/dL 2.2-4.2 [facility] Serum globulin measurement 3.4 g/dL 2.2-4.2 [facility] Serum glucose measurement (m ass/volume)Ordered By: Kathie Powers on 11-10-2024 Glucose [Mass/Vol] 298 mg/dL High 70-99 [facility] Serum or plasma alanine thomas otransferase (ALT) measurementOrdered By: Kathie Powers on 11-10-2024 ALT [Catalytic activity/Vol] 36 U/L <47 [facility] Serum or plasma albumin roosevelt urement (mass/volume)Ordered By: Kathie Powers on 11-10-2024 Albumin [Mass/Vol] 2.3 g/dL Low 3.5-5.0 [facility] Serum or plasma albumin/glob ulin mass ratioOrdered By: Kathie Powers on 11-10-2024 Albumin/Globulin [Mass ratio] 0.7 {ratio} Low 0.9-2.4 [facility] Serum or plasma alkaline kendrick sphatase measurementOrdered By: Kathie Powers on 11-10-2024 ALP [Catalytic activity/Vol] 310 U/L High 40-129 [facility] Serum or plasma calcium roosevelt urement (mass/volume)Ordered By: Kathie Powres on 11-10-2024 Calcium [Mass/Vol] 9.2 mg/dL 7.6-11.0 [facility] Serum or plasma urea nitroge n measurement (mass/volume)Ordered By: Kathie Powers on 11-10-2024 Urea nitrogen [Mass/Vol] 19 mg/dL 4-19 [facility] Sodium levelOrdered By: Javed Powers on 11-10-2024 Sodium [Moles/Vol] 123 mmol/L Low 133-145 [facility] Sodium level 123 mmol/L Low 133-145 [facility] Specific gravity (U) [Rel de nsity]Ordered By: Kathie Powers on 11-10-2024 Urine specific gravity measurement 1.015 1.002-1.030 [facility] Squamous epithelial cells de tection in urine sediment by light microscopyOrdered By: Kathie Powers on 11-10-2024 Epithelial cells.squamous LM Ql (Urine sed) 0 SEEN /hpf 0-5 [facility] Squamous epithelial cells detection in urine sediment by light microscopy 0 SEEN /hpf [facility] Total proteinOrdered By: Tyree Powers on 11-10-2024 Protein [Mass/Vol] 5.7 g/dL Low 5.9-8.4 [facility] Total protein 5.7 g/dL Low 5.9-8.4 [facility] Urea nitrogen [Mass/Vol]Orde red By: Kathie Powers on 11-10-2024 Serum or plasma urea nitrogen measurement (mass/volume) 19 mg/dL 4-19 [facility] Urine blood detectionOrdered By: Kathie Powers on 11-10-2024 Urine blood detection 250 /ul High Negative [facility] Urine clarityOrdered By: Tyree Powers on 11-10-2024 Clarity (U) Turbid Clear [facility] Urine color determinationOrd ered By: Kathie Powers on 11-10-2024 Color (U) Brown Yellow [facility] Urine glucose detectionOrder ed By: Kathie Powers on 11-10-2024 Glucose Ql (U) Normal mg/dl Normal [facility] Urine leukocyte esterase det ection by dipstickOrdered By: Kathie Powers on 11-10-2024 Leukocyte esterase Test strip Ql (U) 500 /ul High Negative [facility] Urine pHOrdered By: Kathie garcias on 11-10-2024 pH (U) 6.5 [pH] 5.0 - 8.0 [facility] Urine sediment bacteria coun t by microscopy (number/high power field)Ordered By: Kathie Powers on 11-10-2024 Bacteria LM.HPF (Urine sed) [#/Area] 2 /[HPF] None Seen [facility] Urine specific gravity measu rementOrdered By: Kathie Powers on 11-10-2024 Specific gravity (U) [Rel density] 1.015 1.002-1.030 [facility] Urine urobilinogen measureme ntOrdered By: Kathie Powers on 11-10-2024 Urobilinogen Ql (U) 1 mg/dl High Normal [facility] Urobilinogen Ql (U)Ordered B y: Kathie Powers on 11-10-2024 Urine urobilinogen measurement 1 mg/dl High Normal [facility] White blood cell (WBC) count Ordered By: Kathie Powers on 11-10-2024 WBC (Bld) [#/Vol] 19.6 10*3/uL High 4.4-11.0 [facility] White blood cell (WBC) count 19.6 K/mm3 High 4.4-11.0 [facility] White blood cell countOrdere d By: Kathie Powers on 11-10-2024 White blood cell count 5-10 SEEN /hpf 0-5 [facility] White blood cell count 5-10 SEEN /hpf 0-5 [facility] pH (U)Ordered By: Kathie aguilar on 11-10-2024 Urine pH 6.5 5.0 - 8.0 [facility] Blood manual differential co mment interpretation (narrative result)Ordered By: Kathie Powers on 11-09-2024 Manual differential comment Marco Antonio (Bld) [Interp] SCANNED [facility] Lactic acid measurementOrder ed By: Kathie Powers on 11-09-2024 Lactic acid measurement 2.4 mmol/L High 0.0-2.0 [facility] Manual differential comment Marco Antonio (Bld) [Interp]Ordered By: Kathie Powers on 11-09-2024 Blood manual differential comment interpretation (narrative result) SCANNED [facility] Pathologist review Marco Antonio (Unsp spec) [Interp]Ordered By: Kathie Powers on 11-09-2024 Review by pathologist N/A [facility] Platelet estimateOrdered By: Kathie Powers on 11-09-2024 Platelets LM Ql (Bld) MKD DEC ADEQ [facility] Platelets LM Ql (Bld)Ordered By: Kathie Powers on 11-09-2024 Platelet estimate MKD DEC ADEQ [facility] Review by pathologistOrdered By: Kathie Powers on 11-09-2024 Pathologist review Marco Antonio (Unsp spec) [Interp] N/A [facility] Venous blood ammonia measure mentOrdered By: Kathie Powers on 11-09-2024 Ammonia (P) [Moles/Vol] 104.0 umol/L High 16-60 [facility] Venous blood ammonia measurement 104.0 umol/L High 16-60 [facility] Lipase measurementOrdered By : Kathie Powers on 11-08-2024 Lipase measurement 94 U/L High 13-75 [facility] Magnesium (Unsp spec) [Mass/ Vol]Ordered By: Kathie Powers on 11-08-2024 Magnesium measurement (mass/volume) 2.4 mg/dL High 1.5-2.2 [facility] Magnesium measurement (mass/ volume)Ordered By: Kathie Powers on 11-08-2024 Magnesium (Unsp spec) [Mass/Vol] 2.4 mg/dL High 1.5-2.2 [facility] Serum phosphorus measurement Ordered By: Kathie Powers on 11-08-2024 Serum phosphorus measurement 1.6 mg/dL Low 2.7-4.5 [facility] Blood polychromasia detectio n by light microscopyOrdered By: Hill Acuña on 11-07-2024 Polychromasia LM Ql (Bld) 1+ [facility] Blood polychromasia detection by light microscopy 1+ [facility] Ovalocyte detectionOrdered B y: Hill Acuña on 11-07-2024 Ovalocytes LM Ql (Bld) 1+ Wo [facility] Band form neutrophils/100 WB C (Bld)Ordered By: Hill Acuña on 11-03-2024 Blood band neutrophil count as percentage of total leukocytes 6 % High 0-5 [facility] Blood band neutrophil count as percentage of total leukocytesOrdered By: Hill Acuña on 11-03-2024 Band form neutrophils/100 WBC (Bld) 6 % High 0-5 [facility] Blood eosinophils/100 leukoc ytesOrdered By: Hill Acuña on 11-03-2024 Eosinophils/100 WBC (Bld) 1 % 0-5 [facility] Blood lymphocytes/100 leukoc ytesOrdered By: Hill Acuña on 11-03-2024 Lymphocytes/100 WBC (Bld) 2 % Low 19-41 [facility] Blood lymphocytes/100 leukocytes 2 % 0-10 [facility] Blood metamyelocytes/100 bri kocytesOrdered By: Hill Acuña on 11-03-2024 Metamyelocytes/100 WBC (Bld) 1 % 0-1 [facility] Blood metamyelocytes/100 leukocytes 1 % 0-5 [facility] Blood monocytes/100 leukocyt esOrdered By: Hill Acuña on 11-03-2024 Monocytes/100 WBC (Bld) 2 % 0-10 [facility] Blood segmented neutrophils/ 100 leukocytesOrdered By: Hill Acuña on 11-03-2024 Segmented neutrophils/100 WBC (Bld) 85 % High 47-70 [facility] Cells counted Molgen (Bld/Ti ss) [#]Ordered By: Hill Acuña on 11-03-2024 Total cell count 100 MANUAL DIFF [facility] Segmented neutrophils/100 WB C (Bld)Ordered By: Hill Acuña on 11-03-2024 Blood segmented neutrophils/100 leukocytes 85 % High 47-70 [facility] Total cell countOrdered By: Hill Acuña on 11-03-2024 Cells counted Molgen (Bld/Tiss) [#] 100 MANUAL DIFF [facility] Erythrocyte morphology asses smentOrdered By: Hill Acuña on 11-02-2024 RBC morphology finding Nom (Bld) NORM C+C NORMAL NORM C&C [facility] RBC morphology finding Nom ( Bld)Ordered By: Hill Acuña on 11-02-2024 Erythrocyte morphology assessment NORM C+C NORMAL NORM C&C [facility] Trough vancomycin levelOrder ed By: Buster Fuchs on 11-01-2024 Vancomycin trough [Mass/Vol] 17.7 ug/mL High 5.0-15.0 [facility] Vancomycin trough [Mass/Vol] Ordered By: Buster Fuchs on 11-01-2024 Trough vancomycin level 17.7 ug/mL High 5.0-15.0 [facility] Activated partial thrombopla stin time (aPTT) in platelet poor plasma by coagulation aOrdered By: Buster Fuchs on 10-31-2024 aPTT Coag (PPP) [Time] 42.7 s High 24.1-36.2 [facility] aPTT Coag (PPP) [Time]Ordere d By: Buster Fuchs on 10-31-2024 Activated partial thromboplastin time (aPTT) in platelet poor plasma by coagulation a 42.7 Seconds High 24.1-36.2 [facility] C. difficile Ql (Stl)Ordered By: Hill Wright on 10-30-2024 Stool Clostridium difficile detection Toxigenic C. difficile Abnormal [facility] Clostridium difficile detect ion by polymerase chain reactionOrdered By: Hill Wright on 10-30-2024 C. difficile DNA ANANTH+probe Ql (Unsp spec) [facility] Stool Clostridium difficile detectionOrdered By: Hill Wright on 10-30-2024 C. difficile Ql (Stl) Toxigenic C. difficile Abnormal [facility] Stool lactoferrin detection by immunoassayOrdered By: Hill Wright on 10-30-2024 Lactoferrin IA Ql (Stl) [facility] Arterial patency Wrist arter y --pre arterial punctureOrdered By: Buster Fuchs on 10-29-2024 Assessment of wrist artery patency prior to arterial puncture Positive [facility] Assessment of wrist artery p atency prior to arterial punctureOrdered By: Buster Fuchs on 10-29-2024 Arterial patency Wrist artery --pre arterial puncture Positive [facility] Base excess Calc (BldV) [Mol es/Vol]Ordered By: Buster Fuchs on 10-29-2024 Blood base excess determination -10 mmol/L [facility]2-2 [facility] Blood base excess determinat ionOrdered By: Buster Fuchs on 10-29-2024 Base excess Calc (BldV) [Moles/Vol] -10 mmol/L [facility]-2 [facility] Blood bicarbonate measuremen tOrdered By: Buster Fuchs on 10-29-2024 HCO3 (Bld) [Moles/Vol] 15.2 mmol/L Low 22-26 [facility] Blood bicarbonate measurement 15.2 mmol/L Low 22-26 [facility] Blood cultureOrdered By: Hugo Wright on 10-29-2024 Bacteria identified Cx Nom (Bld) No growth in 5 days. [facility] Blood culture No growth in 5 days. [facility] Calculated very low density lipoprotein (VLDL) cholesterol measurementOrdered By: Hill Wright on 10-29-2024 Calculated very low density lipoprotein (VLDL) cholesterol measurement 17 mg/dL 5-40 [facility] Calculated very low density lipoprotein (VLDL) cholesterol measurement 17 mg/dL 5-40 [facility] Cholesterol [Mass/Vol]Ordere d By: Hill Wright on 10-29-2024 Serum or plasma cholesterol measurement (mass/volume) 132 mg/dL <201 [facility] Cholesterol in HDL [Mass/Vol ]Ordered By: Hill Wright on 10-29-2024 Serum or plasma cholesterol in HDL measurement (mass/volume) 33 mg/dL Low >40 [facility] Determination of fraction of inspired oxygenOrdered By: Buster Fuchs on 10-29-2024 Determination of fraction of inspired oxygen 21.0 [facility] Electrocardiogram reportOrde red By: Jeovanny Ramos on 10-29-2024 EKG study [facility] Other Phone: LDL calc ser/plasOrdered By: Hill Wright on 10-29-2024 Cholesterol in LDL [Mass/Vol] 83 mg/dL [facility] Measurement, pHOrdered By: Stacy Fuchs on 10-29-2024 pH (Unsp spec) 7.39 [pH] 7.35-7.45 [facility] No Panel InformationOrdered By: Buster Fuchs on 10-29-2024 ART [facility] L Radial [facility] Not entered [facility] Room Air [facility] No Panel InformationOrdered By: Hlil Wright on 10-29-2024 10.20 ug/dL 6.02-18.40 [facility] Osmolality, serumOrdered By: Hill Wright on 10-29-2024 Osmolality, serum 292 mOsm/KG 275-295 [facility] Oxygen saturation measuremen tOrdered By: Buster Fuchs on 10-29-2024 Oxygen saturation measurement 93 % Low 95-99 [facility] Partial pressure of carbon d ioxide measurementOrdered By: Buster Fuchs on 10-29-2024 Partial pressure of carbon dioxide measurement 25.1 mmHg Low 35-45 [facility] Partial pressure of oxygen m easurementOrdered By: Buster Fuchs on 10-29-2024 Partial pressure of oxygen measurement 67 mmHG Low 75-100 [facility] Screening total cholesterol/ high density lipoprotein (HDL) cholesterol ratioOrdered By: Hill Wright on 10-29-2024 Screening total cholesterol/high density lipoprotein (HDL) cholesterol ratio 4.04 [facility] Serum or plasma cholesterol in HDL measurement (mass/volume)Ordered By: Hill Wright on 10-29-2024 Cholesterol in HDL [Mass/Vol] 33 mg/dL Low >40 [facility] Serum or plasma cholesterol measurement (mass/volume)Ordered By: Hill Wright on 10-29-2024 Cholesterol [Mass/Vol] 132 mg/dL <201 [facility] Total carbon dioxide measure mentOrdered By: Buster Fuchs on 10-29-2024 CO2 [Moles/Vol] 16 mmol/L [facility] Total carbon dioxide measurement 16 mmol/L [facility] Triglycerides measurementOrd ered By: Hill Wright on 10-29-2024 Triglycerides measurement 83 mg/dL [facility] Urine cultureOrdered By: Viraj Dunn on 10-29-2024 Bacteria identified Cx Nom (U) Culture exhibits no growth. [facility] Urine culture Culture exhibits no growth. [facility] pH (Unsp spec)Ordered By: Marianna Fuchs on 10-29-2024 Measurement, pH 7.39 7.35-7.45 [facility] Absolute neutrophil countOrd ered By: Alber Dunn on 10-28-2024 Neutrophils (Bld) [#/Vol] 19.0 10*3/uL High 2.0-7.7 [facility] Amorphous sediment LM Ql (Ur ine sed)Ordered By: Alber Dunn on 10-28-2024 Amorphous sediment detection in urine sediment by light microscopy 1+ URATE [facility] Amorphous sediment detection in urine sediment by light microscopyOrdered By: Alber Dunn on 10-28-2024 Amorphous sediment LM Ql (Urine sed) 1+ URATE [facility] Anion gap in Serum or Plasma Ordered By: Alber Dunn on 10-28-2024 Anion gap [Moles/Vol] 17 mmol/L High 5-15 [facility] BUN/creatinine ratioOrdered By: Alber Dunn on 10-28-2024 Urea nitrogen/Creatinine [Mass ratio] 18.8 mg/mg 10-20 [facility] Basophil percentageOrdered B y: Alber Dunn on 10-28-2024 Basophils/100 WBC (Bld) 0.2 % 0-1 [facility] Bilirubin Test strip Ql (U)O rdered By: Alber Dunn on 10-28-2024 Bilirubin Ql (U) 1 mg/dL High Negative [facility] Comment on above: COLOR OF URINE MAY A FFECT DIPSTICK RESULTS. Bilirubin, totalOrdered By: Alber Dunn on 10-28-2024 Bilirubin [Mass/Vol] 1.86 mg/dL High 0.00-1.30 [facility] Carbon dioxide, total [Moles /volume] in Central venous bloodOrdered By: Alber Dunn on 10-28-2024 CO2 [Moles/Vol] 12.4 mmol/L Low 21.0-32.0 [facility] Chloride assayOrdered By: Hernesto Dunn on 10-28-2024 Chloride [Moles/Vol] 98 mmol/L 98-108 [facility] Eosinophil percentageOrdered By: Alber Dunn on 10-28-2024 Eosinophils/100 WBC (Bld) 1.4 % 0-5 [facility] Epithelial cells.squamous LM Ql (Urine sed)Ordered By: Alber Dunn on 10-28-2024 Epithelial cells.squamous LM.HPF (Urine sed) [#/Area] 5 /[HPF] 0-5 [facility] Erythrocyte distribution wid th ratioOrdered By: Alber Dunn on 10-28-2024 Erythrocyte distribution width (RBC) [Ratio] 19.1 % High 11.6-14.6 [facility] Erythrocyte distribution wid th standard deviationOrdered By: Alber Dunn on 10-28-2024 Erythrocyte distribution width (RBC) [Entitic vol] 62.7 fL High 35.1-43.9 [facility] GFR/1.73 sq M.predicted niki g non-blacks MDRD (S/P/Bld) [Vol rate/Area]Ordered By: Alber Dunn on 10-28-2024 Estimated GFR (MDRD) Non-Af Amer 62 >60 [facility] Comment on above: mL/min/1.73m2 CKD-EP I Creatinine Equation (2020) Glucose Ql (U)Ordered By: Hernesto Dunn on 10-28-2024 Glucose (U) [Mass/Vol] 50 mg/dL High Normal [facility] HbA1c (Bld) [Mass fraction]O rdered By: Hill Wright on 10-28-2024 Hemoglobin A1c percentage 6.7 % >5.7 [facility] Hematocrit Auto (Bld) [Volum e fraction]Ordered By: Alber Dunn on 10-28-2024 Hematocrit (Bld) [Volume fraction] 37.3 % Low 40-54 [facility] Hemoglobin A1c percentageOrd ered By: Hill Wright on 10-28-2024 HbA1c (Bld) [Mass fraction] 6.7 % >5.7 [facility] Hemoglobin measurementOrdere d By: Alber Dunn on 10-28-2024 Hemoglobin (Bld) [Mass/Vol] 12.7 g/dL Low 13.0-16.5 [facility] Immature granulocytes/100 WB C Auto (Bld)Ordered By: Alber Dunn on 10-28-2024 Immature granulocytes/100 WBC (Bld) 1.400 % High 0.0-0.9 [facility] Comment on above: IG% - Immature Granu locytes (promyelocytes, myelocytes and metamyelocytes) > 1% indicates that a LEFT SHIFT is Present. Ketones Test strip Ql (U)Ord ered By: Alber Dunn on 10-28-2024 Ketones Ql (U) 5 mg/dl High Negative [facility] Laboratory - Chemistry and C hemistry - challengeOrdered By: Alber Dunn on 10-28-2024 AST [Catalytic activity/Vol] 48 U/L High <38 [facility] Comment on above: Hemolysis present, R esults could be affected. Laboratory - Hematology and Cell countsOrdered By: Alber Dunn on 10-28-2024 Anisocytosis Ql (Bld) RARE [facility] Lactic acid measurementOrder ed By: Alber Dunn on 10-28-2024 Lactate [Moles/Vol] 4.0 mmol/L High 0.0-2.0 [facility] Comment on above: Critical Result(s) C alled [...] 10-28-2024 Lipase [Catalytic activity/Vol] 45 U/L 13-75 [facility] Comment on above: Please note:LIPASE r evised reference range effective 22. New Lipase methodology. Expected to produce lower values than the previous assay method. NEW Reference Range: 13 - 75 U/L Lymphocytes Auto (Unsp spec) [#/Vol]Ordered By: Alber Dunn on 10-28-2024 Lymphocytes (Bld) [#/Vol] 1.28 10*3/uL 0.83-4.51 [facility] Lymphocytes/100 WBC Auto (Un sp spec)Ordered By: Alber Dunn on 10-28-2024 Lymphocytes/100 WBC (Bld) 5.6 % Low 19-41 [facility] MCV (mean corpuscular volume ) determinationOrdered By: Alber Dunn on 10-28-2024 MCV (RBC) [Entitic vol] 91.2 fL 80-94 [facility] Macrocytes Ql (Bld)Ordered B y: Alber Dunn on 10-28-2024 Macrocytosis RARE [facility] Macrocytes detection RARE [facility] Macrocytes detectionOrdered By: Alber Dunn on 10-28-2024 Macrocytes Ql (Bld) RARE [facility] Manual differential comment Marco Antonio (Bld) [Interp]Ordered By: Alber Dunn on 10-28-2024 Differential Comment SEE COMMENT [facility] Comment on above: MONOCYTOSIS NOTED Mean corpuscular hemoglobin (MCH) determinationOrdered By: Alber Dunn on 10-28-2024 MCH (RBC) [Entitic mass] 31.1 pg 27.0-32.0 [facility] Mean corpuscular hemoglobin concentration (MCHC) determinationOrdered By: Alber Dunn on 10-28-2024 MCHC (RBC) [Mass/Vol] 34.0 g/dL 32-36 [facility] Mean platelet volume determi nationOrdered By: Alber Dunn on 10-28-2024 Platelet mean volume (Bld) [Entitic vol] 12.0 fL 6.2-12.0 [facility] Microscopic analysis of urin e for red blood cells (RBC)Ordered By: Alber Dunn on 10-28-2024 Urine RBC > 100 SEEN /hpf 0-5 [facility] Monocyte percentageOrdered B y: Alber Dunn on 10-28-2024 Monocytes/100 WBC (Bld) 8.4 % 0-10 [facility] Mucus LM Ql (Urine sed)Order ed By: Alber Dunn on 10-28-2024 Mucus Ql (Urine sed) 0 SEEN /hpf [facility] Neutrophil percentageOrdered By: Alber Dunn on 10-28-2024 Neutrophils/100 WBC (Bld) 83.0 % High 47-70 [facility] Nitrite Test strip Ql (U)Ord ered By: Alber Dunn on 10-28-2024 Nitrite Ql (U) Negative Negative [facility] Nucleated red blood cell per centageOrdered By: Alber Dunn on 10-28-2024 Nucleated RBC/100 WBC (Bld) [Ratio] 0 % 0-5 [facility] Osmolality (U) [Osmolality]O rdered By: Hill Wright on 10-28-2024 Osmolality ur 484 mOsm/KG >50 [facility] Osmolality urOrdered By: Hugo Wright on 10-28-2024 Osmolality (U) [Osmolality] 484 mOsm/KG >50 [facility] Ovalocytes LM Ql (Bld)Ordere d By: Alber Dunn on 10-28-2024 Ovalocytes RARE [facility] Pathologist review Marco Antonio (Unsp spec) [Interp]Ordered By: Alber Dunn on 10-28-2024 Differential Pathologist's Review [facility] Platelet countOrdered By: Hernesto Dunn on 10-28-2024 Platelets (Bld) [#/Vol] 142 10*3/uL Low 150-450 [facility] Platelets LM Ql (Bld)Ordered By: Alber Dunn on 10-28-2024 Platelet Estimate ADEQUATE ADEQ [facility] Potassium (Unsp spec) [Mass/ Vol]Ordered By: Alber Dunn on 10-28-2024 Potassium [Moles/Vol] 4.5 mmol/L 3.3-5.1 [facility] Comment on above: Hemolysis present, R esults could be affected. Protein Test strip Ql (U)Ord ered By: Alber Dunn on 10-28-2024 Protein Ql (U) 500 mg/dl High Negative [facility] RBC Auto (Bld) [#/Vol]Ordere d By: Alber Dunn on 10-28-2024 RBC (Bld) [#/Vol] 4.09 10*6/uL Low 4.6-6.2 [facility] RBC morphology finding Nom ( Bld)Ordered By: Alber Dunn on 10-28-2024 Red Blood Cell Morphology N CHROM NORMAL NORM C&C [facility] Serum creatinine measurement (mass/volume)Ordered By: Alber Dunn on 10-28-2024 Creatinine [Mass/Vol] 1.33 mg/dL High 0.70-1.20 [facility] Serum globulin measurementOr dered By: Alber Dunn on 10-28-2024 Globulin (S) [Mass/Vol] 3.4 g/dL 2.2-4.2 [facility] Serum glucose measurement (m ass/volume)Ordered By: Alber Dunn on 10-28-2024 Glucose [Mass/Vol] 338 mg/dL High 70-99 [facility] Serum or plasma alanine thomas otransferase (ALT) measurementOrdered By: Alber Dunn on 10-28-2024 ALT [Catalytic activity/Vol] 23 U/L <47 [facility] Serum or plasma albumin roosevelt urement (mass/volume)Ordered By: Alber Dunn on 10-28-2024 Albumin [Mass/Vol] 2.5 g/dL Low 3.5-5.0 [facility] Serum or plasma albumin/glob ulin mass ratioOrdered By: Alber Dunn on 10-28-2024 Albumin/Globulin [Mass ratio] 0.7 {ratio} Low 0.9-2.4 [facility] Serum or plasma alkaline kendrick sphatase measurementOrdered By: Alber Dunn on 10-28-2024 ALP [Catalytic activity/Vol] 274 U/L High 40-129 [facility] Serum or plasma calcium roosevelt urement (mass/volume)Ordered By: Alber Dunn on 10-28-2024 Calcium [Mass/Vol] 9.2 mg/dL 7.6-11.0 [facility] Serum or plasma urea nitroge n measurement (mass/volume)Ordered By: Alber Dunn on 10-28-2024 Urea nitrogen [Mass/Vol] 25 mg/dL High 4-19 [facility] Sodium levelOrdered By: Alber Dunn on 10-28-2024 Sodium [Moles/Vol] 128 mmol/L Low 133-145 [facility] Total proteinOrdered By: Viraj Dunn on 10-28-2024 Protein [Mass/Vol] 5.9 g/dL 5.9-8.4 [facility] Urine blood detectionOrdered By: Alber Dunn on 10-28-2024 Urine Occult Blood 250 /ul High Negative [facility] Urine clarityOrdered By: Viraj Dunn on 10-28-2024 Clarity (U) Cloudy Clear [facility] Urine color determinationOrd ered By: Alber Dunn on 10-28-2024 Color (U) Red Yellow [facility] Urine leukocyte esterase det ection by dipstickOrdered By: Alber Dunn on 10-28-2024 Leukocyte esterase Test strip Ql (U) 500 /ul High Negative [facility] Urine pHOrdered By: Alber grajeda on 10-28-2024 pH (U) 6.5 [pH] 5.0 - 8.0 [facility] Urine sediment bacteria coun t by microscopy (number/high power field)Ordered By: Alber Dunn on 10-28-2024 Bacteria LM.HPF (Urine sed) [#/Area] 1 /[HPF] None Seen [facility] Urine specific gravity measu rementOrdered By: Alber Dunn on 10-28-2024 Specific gravity (U) [Rel density] 1.015 1.002-1.030 [facility] Urobilinogen Ql (U)Ordered B y: Alber Dunn on 10-28-2024 Urine Urobilinogen Normal mg/dl Normal [facility] White blood cell (WBC) count Ordered By: Alber Dunn on 10-28-2024 WBC (Bld) [#/Vol] 22.9 10*3/uL High 4.4-11.0 [facility] White blood cell countOrdere d By: Alber Dunn on 10-28-2024 Urine WBC >100 SEEN /hpf 0-5 [facility] APTTon 10-04-2024 aPTT Coag (PPP) [Time] 40 s High [facility] Albuminon 10-04-2024 Albumin (Body fld) [Mass/Vol] <0.5 Normal Not established [facility] Comment on above: Order Comment: Venip uncture immediately after or during the administration of Metamizole may lead to falsely low results. Testing should be performed immediately prior to Metamizole dosing. Performed By: #### 2 524-7 #### GOMES ALYSSA ([id number]) [facility] ([facility]) [address] [place] [address] Bacteria identifiedon 2024 Bacteria identified Cx Nom (Body fld) Test: Sterile Fluid Culture/Smear Specimen Source: Pleural Specimen Type: Fluid Specimen Date: 10/04/20241713 Result Date: 10/08/2024 0825 Result Status: Final result Resulting Lab: [facility] [address] [address] CULTURE No growth aerobically and anaerobically STAIN (1+) Rare Polymorphonuclear leukocytes No organisms seen Normal [facility] Comment on above: Performed By: #### 2 524-7 #### MIREYA SHAH ([id number]) [facility] ([facility]) [address] [place] [address] Basic metabolic 2000 panelon 10-04-2024 Anion gap [Moles/Vol] 8 mmol/L Low 10 - 2 0 mmol/L [facility] Calcium [Mass/Vol] 8.1 mg/dL Low 8.6 - 10. 3 mg/dL [facility] Chloride [Moles/Vol] 109 mmol/L High 98 - 10 7 mmol/L [facility] CO2 [Moles/Vol] 24 mmol/L 21 - 32 mmol/L [facility] Creatinine [Mass/Vol] 0.73 mg/dL 0.50 - 1.30 mg/dL [facility] eGFR - PINF [facility] Comment on above: Calculations of patric mated GFR are performed using the 2020 CKD-EPI Study Refit equation without the race variable for the IDMS-Traceable creatinine methods. https://jasn.asnjournals.org/content//ASN.2020 026770 Glucose [Mass/Vol] 197 mg/dL High 74 - 99 mg/dL [facility] Potassium [Moles/Vol] 3.9 mmol/L 3.5 - 5.3 mmol/L [facility] Sodium [Moles/Vol] 137 mmol/L 136 - 145 mmol/L [facility] Urea nitrogen [Mass/Vol] 17 mg/dL 6 - 23 mg/dL [facility] Anion gap [Moles/Vol] 8 mmol/L Low 10-20 [facility] Comment on above: Performed By: #### 2 4321-2 #### MIREYA SHAH ([id number]) [facility] ([facility]) [facility] [place] [address] Calcium [Mass/Vol] 8.1 mg/dL Low 8.6-10.3 [facility] Comment on above: Performed By: #### 2 4321-2 #### MIREYA SHAH ([id number]) [facility] ([facility]) [address] [place] [address] Chloride [Moles/Vol] 109 mmol/L High 98-107 [facility] Comment on above: Performed By: #### 2 4321-2 #### MIREYA SHAH ([id number]) [facility] ([facility]) [address] [place] [address] CO2 [Moles/Vol] 24 mmol/L Normal 21-32 [facility] Comment on above: Performed By: #### 2 4321-2 #### MIREYA SHAH ([id number]) [facility] ([facility]) [address] [place] [address]592 Creatinine [Mass/Vol] 0.73 mg/dL Normal 0.50-1.30 [facility] Comment on above: Performed By: #### 2 4321-2 #### MIREYA SHAH ([id number]) [facility] ([facility]) [address] [place] [address] [phone] GFR/1.73 sq M.predicted MDRD (S/P/Bld) [Vol rate/Area] mL/min/{1.73_m2} Normal >60 [facility] Comment on above: Result Comment: Calc ulations of estimated GFR are performed using the 2020 CKD-EPI Study Refit equation without the race variable for the IDMS-Traceable creatinine methods. https://jasn.asnjournals.org/content/early//ASN.2020 035428 Performed By: #### 2 4321-2 #### MIREYA SHAH ([id number]) [facility] ([facility]) [address] [place] [address] Glucose [Mass/Vol] 197 mg/dL High 74-99 [facility] Comment on above: Performed By: #### 2 4321-2 #### MIREYA HSAH ([id number]) [facility] ([facility]) [address] [place] [address] Potassium [Moles/Vol] 3.9 mmol/L Normal 3.5-5.3 [facility] Comment on above: Performed By: #### 2 4321-2 #### MIREYA SHAH ([id number]) [facility] ([facility]) [address] [place] [address]93 Sodium [Moles/Vol] 137 mmol/L Normal 136-145 [facility] Comment on above: Performed By: #### 2 4321-2 #### MIREYA SHAH ([id number]) [facility] ([facility]) [address] [place] [address]50 Urea nitrogen [Mass/Vol] 17 mg/dL Normal 6-23 [facility] Comment on above: Performed By: #### 2 4321-2 #### MIREYA SHAH ([id number]) [facility] ([facility]) [address] [place] [address] CBC W Auto Differential pane l (Bld)on 10-04-2024 Basophils (Bld) [#/Vol] 0.02 10*3/uL [facility] Basophils/100 WBC (Bld) 0.4 % 0.0 - 2.0 % [facility] Eosinophils (Bld) [#/Vol] 0.15 10*3/uL [facility] Eosinophils/100 WBC (Bld) 2.7 % 0.0 - 6.0 % [facility] Erythrocyte distribution width (RBC) [Ratio] 22.1 % High 11.5 - 14.5 % [facility] Hematocrit (Bld) [Volume fraction] 29.8 % Low 41.0 - 52.0 % [facility] Hemoglobin (Bld) [Mass/Vol] 9.3 g/dL Low 13.5 - 17.5 g/dL [facility] Immature granulocytes (Bld) [#/Vol] 0.01 10*3/uL [facility] Immature granulocytes/100 WBC (Bld) 0.2 % 0.0 - 0.9 % [facility] Comment on above: Immature Granulocyte Count (IG) includes promyelocytes, myelocytes and metamyelocytes but does not include bands. Percent differential counts (%) should be interpreted in the context of the absolute cell counts (cells/UL). Interpretation and review of laboratory results Abnormal [facility] Lymphocytes (Bld) [#/Vol] 0.64 10*3/uL Low [facility] Lymphocytes/100 WBC (Bld) 11.5 % 13.0 - 44.0 % [facility] MCH (RBC) [Entitic mass] 30 pg 26.0 - 34.0 pg [facility] MCHC (RBC) [Mass/Vol] 31.2 g/dL Low 32.0 - 36.0 g/dL [facility] MCV (RBC) [Entitic vol] 96 fL 80 - 100 fL [facility] Monocytes (Bld) [#/Vol] 0.46 10*3/uL [facility] Monocytes/100 WBC (Bld) 8.3 % 2.0 - 10.0 % [facility] Neutrophils (Bld) [#/Vol] 4.28 10*3/uL [facility] Comment on above: Percent differential counts (%) should be interpreted in the context of the absolute cell counts (cells/uL). Neutrophils/100 WBC (Bld) 76.9 % 40.0 - 80.0 % [facility] Nucleated RBC/100 WBC (Bld) [Ratio] 0 % [facility] Platelets (Bld) [#/Vol] 65 10*3/uL Low [facility] RBC (Bld) [#/Vol] 3.1 10*6/uL Low [facility] WBC (Bld) [#/Vol] 5.6 10*3/uL [facility] Basophils (Bld) [#/Vol] 0.02 x10*3/uL Normal 0.00-0.10 [facility] Comment on above: Performed By: #### 5 7021-8 #### MIREYA SHAH ([id number]) [facility] ([facility]) [address] [place] [address] 89953 Basophils/100 WBC (Bld) 0.4 % Normal 0.0-2.0 [facility] Comment on above: Performed By: #### 5 7021-8 #### MIREYA SHAH ([id number]) [facility] ([facility]) [address] [place] [address] 23620 Eosinophils (Bld) [#/Vol] 0.15 x10*3/uL Normal 0.00-0.70 [facility] Comment on above: Performed By: #### 5 7021-8 #### MIREYA SHAH ([id number]) [facility] ([facility]) [address] [place] [address] 93082 Eosinophils/100 WBC (Bld) 2.7 % Normal 0.0-6.0 [facility] Comment on above: Performed By: #### 5 7021-8 #### MIREYA SHAH ([id number]) [facility] ([facility]) [address] [place] [address] 76089 Erythrocyte distribution width (RBC) [Ratio] 22.1 % High 11.5-14.5 [facility] Comment on above: Performed By: #### 5 7021-8 #### MIREYA SHAH ([id number]) [facility] ([facility]) [address] [place] [address] 59532 Hematocrit (Bld) [Volume fraction] 29.8 % Low 41.0-52.0 [facility] Comment on above: Performed By: #### 5 7021-8 #### MIREYA SHAH ([id number]) [facility] ([facility]) [address] [place] [address] 18504 Hemoglobin (Bld) [Mass/Vol] 9.3 g/dL Low 13.5-17.5 [facility] Comment on above: Performed By: #### 5 7021-8 #### MIREYA SHAH ([id number]) [facility] ([facility]) [address] [place] [address] 96251 Immature granulocytes (Bld) [#/Vol] 0.01 x10*3/uL Normal 0.00-0.70 [facility] Comment on above: Performed By: #### 5 7021-8 #### MIREYA SHAH ([id number]) [facility] ([facility]) [address] [place] [address]231 Immature granulocytes/100 WBC (Bld) 0.2 % Normal 0.0-0.9 [facility] Comment on above: Result Comment: Danielle ture Granulocyte Count (IG) includes promyelocytes, myelocytes and metamyelocytes but does not include bands. Percent differential counts (%) should be interpreted in the context of the absolute cell counts (cells/UL). Performed By: #### 5 7021-8 #### MIREYA SHAH ([id number]) [facility] ([facility]) [address] [place] [address] 88431 Lymphocytes (Bld) [#/Vol] 0.64 x10*3/uL Low 1.20-4.80 [facility] Comment on above: Performed By: #### 5 7021-8 #### MIREYA SHAH ([id number]) [facility] ([facility]) [address] [place] [address] 27722 Lymphocytes/100 WBC (Bld) 11.5 % Normal 13.0-44.0 [facility] Comment on above: Performed By: #### 5 7021-8 #### MIREYA SHAH ([id number]) [facility] ([facility]) [address] [place] [address] 49605 MCH (RBC) [Entitic mass] 30.0 pg Normal 26.0-34.0 [facility] Comment on above: Performed By: #### 5 7021-8 #### MIREYA SHAH ([id number]) [facility] ([facility]) [address] [place] [address] 10337 MCHC (RBC) [Mass/Vol] 31.2 g/dL Low 32.0-36.0 [facility] Comment on above: Performed By: #### 5 7021-8 #### MIREYA SHAH ([id number]) [facility] ([facility]) [address] [place] [address] 57212 MCV (RBC) [Entitic vol] 96 fL Normal 80-100 U [facility] Comment on above: Performed By: #### 5 7021-8 #### MIREYA SHAH ([id number]) [facility] ([facility]) [address] [place] [address] 70251 Monocytes (Bld) [#/Vol] 0.46 x10*3/uL Normal 0.10-1.00 [facility] Comment on above: Performed By: #### 5 7021-8 #### MIREYA SHAH ([id number]) [facility] ([facility]) [address] [place] [address] 33630 Monocytes/100 WBC (Bld) 8.3 % Normal 2.0-10.0 U [facility] Comment on above: Performed By: #### 5 7021-8 #### MIREYA SHAH ([id number]) [facility] ([facility]) [address] [place] [address] 69850 Neutrophils (Bld) [#/Vol] 4.28 x10*3/uL Normal 1.20-7.70 [facility] Comment on above: Result Comment: Perc ent differential counts (%) should be interpreted in the context of the absolute cell counts (cells/uL). Performed By: #### 5 7021-8 #### MIREYA SHAH ([id number]) [facility] ([facility]) [address] [place] [address] 84730 Neutrophils/100 WBC (Bld) 76.9 % Normal 40.0-80.0 [facility] Comment on above: Performed By: #### 5 7021-8 #### MIREYA SHAH ([id number]) [facility] ([facility]) [address] [place] [address] 44819 Nucleated RBC/100 WBC (Bld) [Ratio] 0.0 /100 WBCs Normal 0.0-0.0 [facility] Comment on above: Performed By: #### 5 7021-8 #### MIREYA SHAH ([id number]) [facility] ([facility]) [address] [place] [address] 14896 Platelets (Bld) [#/Vol] 65 x10*3/uL Low 150-450 [facility] Comment on above: Performed By: #### 5 7021-8 #### MIREYA SHAH ([id number]) [facility] ([facility]) [address] [place] [address] 26612 RBC (Bld) [#/Vol] 3.10 x10*6/uL Low 4.50-5.90 [facility] Comment on above: Performed By: #### 5 7021-8 #### MIREYA SHAH ([id number]) [facility] ([facility]) [address] [place] [address] WBC (Bld) [#/Vol] 5.6 x10*3/uL Normal 4.4-11.3 [facility] Comment on above: Performed By: #### 5 7021-8 #### MIREYA SHAH ([id number]) [facility] ([facility]) [address] [place] [address] CT ABDOMEN PELVIS W IV CONTR [place] 10-04-2024 CT ABDOMEN PELVIS W IV CONTRAST Interpreted By: Yohana Huang, STUDY: CT ABDOMEN PELVIS W IV CONTRAST; 10/04/2024 2:16 pm INDICATION: Signs/Symptoms:generaliz ed abdominal pain, hx of cirrhosis, recent paracentesis. COMPARISON: None. ACCESSION NUMBER(S): [id number] ORDERING CLINICIAN: SRIRAM OLEARY TECHNIQUE: CT of [...] Yohana Huang 10/04/2024 2:28 PM Dictation workstation: [id number] [facility] CT Abdomen and Pelvis W cont rast Jamari 10-04-2024 Coronary artery calcifications. Anasarca. Ascites. Small irregular liver consistent with cirrhosis. Extensive collateral vessels. Enlarged spleen. Ventral and inguinal hernias containing ascitic fluid. MACRO: none Signed by: Yohana Huang 10/04/2024 2:28 PM Dictation workstation: [id number] Interpreted By: Yohana Chen, STUDY: CT ABDOMEN PELVIS W IV CONTRAST; 10/04/2024 2:16 pm INDICATION: Signs/Symptoms:generaliz ed abdominal pain, hx of cirrhosis, recent paracentesis. COMPARISON: None. ACCESSION NUMBER(S): [id number] ORDERING CLINICIAN: SRIRAM OLEARY TECHNIQUE: CT of [...] cirrhosis, recent paracentesis. COMPARISON: None. ACCESSION NUMBER(S): [id number] ORDERING CLINICIAN: SRIRAM OLEARY TECHNIQUE: CT of [...] Yohana Huang 10/04/2024 2:28 PM Dictation workstation: [id number] [facility] Work Phone: Radiology Study observation (narrative) [facility] Work Phone: CT Abdomen and Pelvis W cont rast IVOrdered By: Yohana Huang on 10-04-2024 [facility] Work Phone: Cell count panel (Body fld)O rdered By: Fortino Mcgee on 10-04-2024 Clarity (Body fld) Hazy Abnormal Clear [facility] Color (Body fld) Straw Colorless, Straw, Yellow [facility] Interpretation and review of laboratory results Abnormal [facility] RBC Auto (Body fld) [#/Vol] 2000 /uL see comment [facility] WBC (Body fld) [#/Vol] 0.058 10*3/uL See Commen t [facility] Body Fluid cell coun t reference ranges have not been established by [facility]. Reference ranges provided are based on published references. [facility] Cell count panel (Body fld)o n 10-04-2024 Clarity (Body fld) Hazy Abnormal Clear [facility] Comment on above: Order Comment: Body Fluid cell count reference ranges have not been established by [facility]. Reference ranges provided are based on published references. Performed By: #### 3 4556-1 #### GOMES ALYSSA ([id number]) [facility] ([facility]) [address] [place] [address] Color (Body fld) Straw Normal Colorless, Straw, Yellow [facility] Comment on above: Order Comment: Body Fluid cell count reference ranges have not been established by [facility]. Reference ranges provided are based on published references. Performed By: #### 3 4556-1 #### MIREYA SHAH ([id number]) [facility] ([facility]) [address] [place] [address] RBC Auto (Body fld) [#/Vol] 2000 /uL Normal see comment [facility] Comment on above: Order Comment: Body Fluid cell count reference ranges have not been established by [facility]. Reference ranges provided are based on published references. Performed By: #### 3 4556-1 #### MIREYA SHAH ([id number]) [facility] ([facility]) [address] [place] [address] WBC (Body fld) [#/Vol] 0.058 10*3/uL Normal See Commevelin t [facility] Comment on above: Order Comment: Body Fluid cell count reference ranges have not been established by [facility]. Reference ranges provided are based on published references. Performed By: #### 3 4556-1 #### MIREYA SHAH ([id number]) [facility] ([facility]) [address] [place] [address] Coagulation surface inducedo n 10-04-2024 aPTT Coag (PPP) [Time] 40 s High 26-36 [facility] Comment on above: Order Comment: The A PTT is no longer used for monitoring Unfractionated Heparin Therapy. For monitoring Heparin Therapy, use the Heparin Assay. Performed By: #### 1 4979-9 #### MIREYA SHAH ([id number]) [facility] ([facility]) [address] [place] [address] Coagulation tissue factor in [place] 10-04-2024 PT Coag (PPP) [Time] 23.6 s High 9.8-12.4 [facility] Comment on above: Performed By: #### 5 902-2 #### MIREYA SHAH ([id number]) [facility] ([facility]) [address] [place] [address] Differential panel (Body fld )on 10-04-2024 Basophils/100 WBC (Body fld) 0 % not established [facility] Blasts/100 WBC Manual cnt (Body fld) 0 % not established [facility] Cells Counted Total (Body fld) [#] 100 [facility] Eosinophils/100 WBC Manual cnt (Body fld) 0 % see comment [facility] Immature Granulocytes %, Manual, Fluid 0 % not established [facility] Interpretation and review of laboratory results Abnormal [facility] Lymphocytes/100 WBC Manual cnt (Body fld) 19 % see comment [facility] Monocytes+Macrophages/1 00 WBC Manual cnt (Body fld) 17 % see comment [facility] Neutrophils/100 WBC (Body fld) 40 % see comment [facility] Other cells/100 WBC Manual cnt (Body fld) 24 % High not established [facility] Comment on above: Mesothelial cells no tianna by tech Plasma cells/100 WBC Manual cnt (Body fld) 0 % not established [facility] Body Fluid cell differential reference ranges have not been established by [facility]. Reference ranges provided are based on published references. [facility] Basophils/100 WBC (Body fld) 0 % Normal not established [facility] Comment on above: Order Comment: Body Fluid cell differential reference ranges have not been established by [facility]. Reference ranges provided are based on published references. Performed By: #### 2 9580-8 #### MIREYA SHAH ([id number]) [facility] ([facility]) [address] [place] [address] Blasts/100 WBC Manual cnt (Body fld) 0 % Normal not established [facility] Comment on above: Order Comment: Body Fluid cell differential reference ranges have not been established by [facility]. Reference ranges provided are based on published references. Performed By: #### 2 9580-8 #### MIREYA SHAH ([id number]) [facility] ([facility]) [address] [place] [address] Cells Counted Total (Body fld) [#] 100 Normal [facility] Comment on above: Order Comment: Body Fluid cell differential reference ranges have not been established by [facility]. Reference ranges provided are based on published references. Performed By: #### 2 9580-8 #### MIREYA SHAH ([id number]) [facility] ([facility]) [facility] [place] [address] Eosinophils/100 WBC Manual cnt (Body fld) 0 % Normal see comment [facility] Comment on above: Order Comment: Body Fluid cell differential reference ranges have not been established by [facility]. Reference ranges provided are based on published references. Performed By: #### 2 9580-8 #### MIREYA SHAH ([id number]) [facility] ([facility]) [address] [place] [address] 42454 IMMATURE GRANULOCYTES IN FLUID 0 % Normal not established [facility] Comment on above: Order Comment: Body Fluid cell differential reference ranges have not been established by [facility]. Reference ranges provided are based on published references. Performed By: #### 2 9580-8 #### MIREYA SHAH ([id number]) [facility] ([facility]) [address] [place] [address] 82201 Lymphocytes/100 WBC Manual cnt (Body fld) 19 % Normal see comment [facility] Comment on above: Order Comment: Body Fluid cell differential reference ranges have not been established by [facility]. Reference ranges provided are based on published references. Performed By: #### 2 9580-8 #### MIREYA SHAH ([id number]) [facility] ([facility]) [address] [place] [address] Monocytes+Macrophages/1 00 WBC Manual cnt (Body fld) 17 % Normal see comment [facility] Comment on above: Order Comment: Body Fluid cell differential reference ranges have not been established by [facility]. Reference ranges provided are based on published references. Performed By: #### 2 9580-8 #### MIREYA SHAH ([id number]) [facility] ([facility]) [address] [place] [address] Neutrophils/100 WBC (Body fld) 40 % Normal see comment [facility] Comment on above: Order Comment: Body Fluid cell differential reference ranges have not been established by [facility]. Reference ranges provided are based on published references. Performed By: #### 2 9580-8 #### MIREYA SHAH ([id number]) [facility] ([facility]) [address] [place] [address] 52597 Other cells/100 WBC Manual cnt (Body fld) 24 % High not established [facility] Comment on above: Order Comment: Body Fluid cell differential reference ranges have not been established by [facility]. Reference ranges provided are based on published references. Result Comment: Meso thelial cells noted by tech Performed By: #### 2 9580-8 #### MIREYA SHAH ([id number]) [facility] ([facility]) [address] [place] [address] 02272 Plasma cells/100 WBC Manual cnt (Body fld) 0 % Normal not established [facility] Comment on above: Order Comment: Body Fluid cell differential reference ranges have not been established by [facility]. Reference ranges provided are based on published references. Performed By: #### 2 9580-8 #### MIREYA SHAH ([id number]) [facility] ([facility]) [address] [place] [address] Glucoseon 10-04-2024 Glucose (Body fld) [Mass/Vol] 200 mg/dL Normal Not established [facility] Comment on above: Order Comment: Venip uncture immediately after or during the administration of Metamizole may lead to falsely low results. Testing should be performed immediately prior to Metamizole dosing. Performed By: #### 2 524-7 #### MIREYA SHAH ([id number]) [facility] ([facility]) [address] [place], [place] [address] Hepatic function 2000 panelo n 10-04-2024 Albumin BCP dye [Mass/Vol] 2.4 g/dL Low 3.4 - 5.0 g/dL [facility] ALP [Catalytic activity/Vol] 212 U/L High 33 - 120 U/L [facility] ALT With P-5'-P [Catalytic activity/Vol] 46 U/L 10 - 52 U/L [facility] Comment on above: Patients treated wit h Sulfasalazine may generate falsely decreased results for ALT. AST With P-5'-P [Catalytic activity/Vol] 49 U/L High 9 - 39 U/L [facility] Bilirubin [Mass/Vol] 1.8 mg/dL High 0.0 - 1 .2 mg/dL [facility] Bilirubin.direct [Mass/Vol] 0.7 mg/dL High 0.0 - 0.3 mg/dL [facility] Protein [Mass/Vol] 5.7 g/dL Low 6.4 - 8.2 g/dL [facility] Albumin BCP dye [Mass/Vol] 2.4 g/dL Low 3.4-5.0 [facility] Comment on above: Performed By: #### 2 5-3 #### MIREYA SHAH ([id number]) [facility] ([facility]) [address] [place] [address] 97986 ALP [Catalytic activity/Vol] 212 U/L High 33-120 [facility] Comment on above: Performed By: #### 2 5-3 #### MIREYA SHAH ([id number]) [facility] ([facility]) [address] [place] [address] 04638 ALT With P-5'-P [Catalytic activity/Vol] 46 U/L Normal 10-52 [facility] Comment on above: Result Comment: Argenis ents treated with Sulfasalazine may generate falsely decreased results for ALT. Performed By: #### 2 5-3 #### MIREYA SHAH ([id number]) [facility] ([facility]) [address] [place] [address] 70829 AST With P-5'-P [Catalytic activity/Vol] 49 U/L High 9-39 [facility] Comment on above: Performed By: #### 2 5-3 #### MIREYA SHAH ([id number]) [facility] ([facility]) [address] [place] [address] 99953 Bilirubin [Mass/Vol] 1.8 mg/dL High 0.0-1.2 [facility] Comment on above: Performed By: #### 2 4325-3 #### MIREYA SHAH ([id number]) [facility] ([facility]) [address] [place] [address] 66256 Bilirubin.direct [Mass/Vol] 0.7 mg/dL High 0.0-0.3 [facility] Comment on above: Performed By: #### 2 4325-3 #### MIREYA SHAH ([id number]) [facility] ([facility]) [address] [place] [address] 54428 Protein [Mass/Vol] 5.7 g/dL Low 6.4-8.2 [facility] Comment on above: Performed By: #### 2 4325-3 #### MIREYA SHAH ([id number]) [facility] ([facility]) [address] [place] [address] 96225 Lactateon 10-04-2024 Lactate [Moles/Vol] 2 mmol/L 0.4 - 2. 0 mmol/L [facility] Lactate [Moles/Vol] 2.0 mmol/L Normal 0.4-2.0 [facility] Comment on above: Order Comment: Venip uncture immediately after or during the administration of Metamizole may lead to falsely low results. Testing should be performed immediately prior to Metamizole dosing. Performed By: #### 2 524-7 #### MIREYA SHAH ([id number]) [facility] ([facility]) [address] [place] [address] 41712 Lactate [Moles/Vol]on 2024 Interpretation and review of laboratory results Normal [facility] Venipuncture immedia tely after or during the administration of Metamizole may lead to falsely low results. Testing should be performed immediately prior to Metamizole dosing. [facility] Lactate dehydrogenaseon LDH Lactate to pyruvate reaction (Body fld) [Catalytic activity/Vol] <25 Normal Not established. [facility] Comment on above: Order Comment: Venip uncture immediately after or during the administration of Metamizole may lead to falsely low results. Testing should be performed immediately prior to Metamizole dosing. Performed By: #### 2 524-7 #### MIREYA SHAH ([id number]) [facility] ([facility]) [address] [place] [address] Lipaseon 10-04-2024 Lipase [Catalytic activity/Vol] 56 U/L 9 - 82 U/L [facility] Lipase [Catalytic activity/V ol]on 10-04-2024 Interpretation and review of laboratory results Normal [facility] Venipuncture immedia tely after or during the administration of Metamizole may lead to falsely low results. Testing should be performed immediately prior to Metamizole dosing. [facility] No Panel Informationon 10-04 Interpretation and review of laboratory results Abnormal [facility] Interpretation and review of laboratory results Abnormal [facility] Non-auto emissions technician cytology studyon Non-gynecological cytology method study Pathology report.total SEE COMMENT Non-gynecologic Cytology Case: [id number] Authorizing Provider: Joey Huang DO Collected: 10/04/2024 1714 Ordering Location: [facility] Received: 10/05/2024 2139 [facility] Pathologist: Jarvis Guzman MD Specimen: ASCITIC FLUID Path report.final diagnosis SEE COMMENT A. ASCITIC FLUID: - NO MALIGNANT CELLS IDENTIFIED. Note: This case has been evaluated using a concentrated (ThinPrep) preparation. Laboratory comment SEE COMMENT Slide(s) initially screened by ABEL Castro at [address] [phone] By the signature on this report, the [...] Pap Stain NGYN ThinPrep Normal [facility] PT Coag (PPP) [Time]on 10-04 INR Coag (PPP) [Relative time] 2.1 {INR} High 0.9 - 1.1 [facility] INR Coag (PPP) [Relative time] 2.1 High 0.9-1.1 [facility] Comment on above: Performed By: #### 5 902-2 #### MIREYA SHAH ([id number]) [facility] ([facility]) [facility] [place] [address] Paracentesison 10-04-2024 Joey Huang DO 10/04/2024 5:18 PM Paracentesis Date/Time: 10/04/2024 5:17 PM Performed by: Joey Huang DO Authorized by: Joey Huang DO Consent: Consent obtained: Written Consent given by: Patient Risks, benefits, and alternatives were discussed: yes Risks discussed: Bleeding, bowel perforation and infection Alternatives discussed: No treatment [place] protocol: Procedure explained and questions answered to [...] Tolerated [facility] Work Phone: [facility] Work Phone: Proteinon 10-04-2024 Protein (Body fld) [Mass/Vol] g/dL Normal Not established [facility] Comment on above: Order Comment: Venip uncture immediately after or during the administration of Metamizole may lead to falsely low results. Testing should be performed immediately prior to Metamizole dosing. Performed By: #### 2 524-7 #### MIREYA SHAH ([id number]) [facility] ([facility]) [facility] [place] [id number] Protime-INRon 10-04-2024 PT Coag (PPP) [Time] 23.6 s High [facility] Triacylglycerol lipaseon Lipase [Catalytic activity/Vol] 56 U/L Normal 9-82 [facility] Comment on above: Order Comment: Venip uncture immediately after or during the administration of Metamizole may lead to falsely low results. Testing should be performed immediately prior to Metamizole dosing. Performed By: #### 3 040-3 #### MIREYA SHAH ([id number]) [facility] ([facility]) [facility] [place] [address] aPTT Coag (PPP) [Time]on The APTT is no longe r used for monitoring Unfractionated Heparin Therapy. For monitoring Heparin Therapy, use the Heparin Assay. [facility] pHon 10-04-2024 pH (Body fld) 7.82 Normal See Below [facility] Comment on above: Order Comment: Venip uncture immediately after or during the administration of Metamizole may lead to falsely low results. Testing should be performed immediately prior to Metamizole dosing. Performed By: #### 2 524-7 #### MIREYA SHAH ([id number]) [facility] ([facility]) [address] [place] [address] Gl[facility] at [facility] deOrdered By: Boone Izquierdo on 09-14-2024 Bedside Glucose (Misc Panel) 134 mg/dL High 74-106 [facility] Comment on above: MANAGEMENT OF PATIEN T CARE PER NURSING PROTOCOL Glucose [Mass/Vol] 134 mg/dL High 74-106 [facility] Glucose measurement at bedside 134 mg/dL High 74-106 [facility] Blood urea nitrogen (BUN)/cr eatinine ratioOrdered By: Jae Ash on 09-12-2024 Urea nitrogen/Creatinine [Mass ratio] 7.6 mg/mg Low 10-20 [facility] Blood urea nitrogen (BUN)/creatinine ratio 7.6 RATIO Low 10-20 [facility] Calcium [Mass/Vol]Ordered By : Jae Ash on 09-12-2024 Serum or plasma calcium measurement (mass/volume) 8.1 mg/dL Low 8.5-10.1 [facility] Carbon dioxide measurementOr dered By: Jae Ash on 09-12-2024 CO2 [Moles/Vol] 20.0 mmol/L Low 21.0-32.0 [facility] Carbon dioxide measurement 20.0 mmol/L Low 21.0-32.0 [facility] Chloride measurementOrdered By: Jae Ash on 09-12-2024 Chloride [Moles/Vol] 109 mmol/L High 98-107 [facility] Chloride measurement 109 mmol/L High 98-107 [facility] Creatinine [Mass/Vol]Ordered By: Jae Ash on 09-12-2024 Serum or plasma creatinine measurement (mass/volume) 0.92 mg/dL 0.70-1.30 [facility] Erythrocyte distribution wid th (RBC) [Ratio]Ordered By: Jae Ash on 09-12-2024 Erythrocyte distribution width ratio 19.7 % High 11.6-14.6 [facility] Erythrocyte distribution width standard deviation 63.5 fl High 35.1-43.9 [facility] Erythrocyte distribution wid th ratioOrdered By: Jae Ash on 09-12-2024 Erythrocyte distribution width (RBC) [Ratio] 19.7 % High 11.6-14.6 [facility] Erythrocyte distribution wid th standard deviationOrdered By: Jae Ash on 09-12-2024 Erythrocyte distribution width (RBC) [Entitic vol] 63.5 fL High 35.1-43.9 [facility] Erythrocyte distribution width (RBC) [Ratio] 63.5 fl High 35.1-43.9 [facility] Estimated glomerular filtrat ion rate (GFR) AmericanOrdered By: Jae Ash on 09-12-2024 Estimated GFR (MDRD) Amer 108 mL/min >60 [facility] Comment on above: GFR Calc Estimated glomerular filtration rate (GFR) 108 mL/min >60 [facility] Estimation of creatinine carol[place] aranceOrdered By: Jae Ash on 09-12-2024 Estimated Creatinine Clearance Calc 71.80 ml/min [facility] Estimation of creatinine clearance 71.80 ml/min [facility] Glomerular filtration rate ( GFR) estimationOrdered By: Jae Ash on 09-12-2024 Estimated GFR (MDRD) Non-Af Amer 89 mL/min >60 [facility] Comment on above: Non- GFR Calc GFR/1.73 sq M.predicted among non-blacks MDRD (S/P/Bld) [Vol rate/Area] 89 mL/min/{1.73_m2} >60 [facility] Glomerular filtration rate (GFR) estimation 89 mL/min >60 [facility] Glucose measurementOrdered B y: Jae Ash on 09-12-2024 Glucose [Mass/Vol] 149 mg/dL High 74-106 [facility] Comment on above: Fasting Glucose resu lt greater than or equal to 126 mg/dL suggests DIABETES MELLITUS per A.D.A. criteria. Glucose measurement 149 mg/dL High 74-106 [facility] Hematocrit Auto (Bld) [Volum e fraction]Ordered By: Jae Ash on 09-12-2024 Hematocrit (Bld) [Volume fraction] 25.8 % Low 40-54 [facility] Automated blood hematocrit (percentage) 25.8 % Low 40-54 [facility] Hemoglobin measurementOrdere d By: Jae Ash on 09-12-2024 Hemoglobin (Bld) [Mass/Vol] 8.1 g/dL Low 13.0-16.5 [facility] Hemoglobin measurement 8.1 g/dL Low 13.0-16.5 [facility] MCV (RBC) [Entitic vol]Order ed By: Jae Ash on 09-12-2024 MCV (mean corpuscular volume) determination 90.5 fL 80-94 [facility] MCV (mean corpuscular volume ) determinationOrdered By: Jae Ash on 09-12-2024 MCV (RBC) [Entitic vol] 90.5 fL 80-94 [facility] Mean corpuscular hemoglobin (MCH) determinationOrdered By: Jae Ash on 09-12-2024 MCH (RBC) [Entitic mass] 28.4 pg 27.0-32.0 [facility] Mean corpuscular hemoglobin (MCH) determination 28.4 pg 27.0-32.0 [facility] Mean corpuscular hemoglobin concentration (MCHC) determinationOrdered By: Jae Ash on 09-12-2024 MCHC (RBC) [Mass/Vol] 31.4 g/dL Low 32-36 [facility] Comment on above: Delta: 33.1 on 09/10 Mean corpuscular hemoglobin concentration (MCHC) determination 31.4 g/dL Low 32-36 [facility] Mean platelet volume determi nationOrdered By: Jae Ash on 09-12-2024 Platelet mean volume (Bld) [Entitic vol] 11.9 fL 6.2-12.0 [facility] Mean platelet volume determination 11.9 fl 6.2-12.0 [facility] Platelet countOrdered By: Sky Ash on 09-12-2024 Platelets (Bld) [#/Vol] 115 10*3/uL Low 150-450 [facility] Platelet count 115 K/mm3 Low 150-450 [facility] Potassium measurementOrdered By: Jae Ash on 09-12-2024 Potassium [Moles/Vol] 3.4 mmol/L Low 3.5-5.1 [facility] Potassium measurement 3.4 mmol/L Low 3.5-5.1 [facility] RBC Auto (Bld) [#/Vol]Ordere d By: Jae Ash on 09-12-2024 RBC (Bld) [#/Vol] 2.85 10*6/uL Low 4.6-6.2 [facility] Automated blood erythrocyte count 2.85 M/mm3 Low 4.6-6.2 [facility] Serum anion gap measurementO rdered By: Jae Ash on 09-12-2024 Anion gap [Moles/Vol] 7 mmol/L 5-15 [facility] Serum anion gap measurement 7 5-15 [facility] Serum or plasma calcium roosevelt urement (mass/volume)Ordered By: Jae Ash on 09-12-2024 Calcium [Mass/Vol] 8.1 mg/dL Low 8.5-10.1 [facility] Serum or plasma creatinine m easurement (mass/volume)Ordered By: Jae Ash on 09-12-2024 Creatinine [Mass/Vol] 0.92 mg/dL 0.70-1.30 [facility] Comment on above: The validity of the calculated GFR & GFRAA in patients over 70 years has not been determined. Clinical correlation is essential. Serum or plasma urea nitroge n measurement (mass/volume)Ordered By: Jae Ash on 09-12-2024 Urea nitrogen [Mass/Vol] 7 mg/dL 7-18 [facility] Sodium levelOrdered By: Pasha Ash on 09-12-2024 Sodium [Moles/Vol] 136 mmol/L 136-145 [facility] Sodium level 136 mmol/L 136-145 [facility] Urea nitrogen [Mass/Vol]Orde red By: Jae Ash on 09-12-2024 Serum or plasma urea nitrogen measurement (mass/volume) 7 mg/dL 02-18 [facility] White blood cell (WBC) count Ordered By: Jae Ash on 09-12-2024 WBC (Bld) [#/Vol] 7.4 10*3/uL 4.4-11.0 [facility] White blood cell (WBC) count 7.4 K/mm3 4.4-11.0 [facility] Serum or plasma trough vanco mycin levelOrdered By: Thai Thurston on 09-10-2024 Vancomycin trough [Mass/Vol] 15.7 ug/mL High 5.0-15.0 [facility] Vancomycin trough [Mass/Vol] Ordered By: Thai Thurston on 09-10-2024 Vancomycin Level Trough 15.7 ug/mL High 5.0-15.0 [facility] Comment on above: VANCOMYCIN STANDARED DRUG THERAPY TROUGH LEVEL: 5.0 - 15.0 mg/L VANCOMYCIN HIGH INTENSITY THERAPY TROUGH LEVEL: 15.0 - 20.0 mg/L High Intensity therapy recommended for serious lifethreatening infections include:- Wdevucyehf-Eaompyoqqvyi-Gzwzxpbdj (Ventilator/Healtcare Associated)-Sepsis PLEASE CONTACT PHARMACY SERVICES (#[id number]) FOR INTERPRETATIONOF RESULTS. Serum or plasma trough vancomycin level 15.7 ug/mL High 5.0-15.0 [facility] Serum or plasma vancomycin l evel (mass/volume)Ordered By: Maria Guadalupe Shore on 09-08-2024 Vancomycin [Mass/Vol] 16.5 ug/mL High 0.0-15.0 [facility] Vancomycin [Mass/Vol]Ordered By: Maria Guadalupe Shore on 09-08-2024 Random Vancomycin Level 16.5 ug/mL High 0.0-15.0 [facility] Comment on above: VANCOMYCIN STANDARD DRUG THERAPY: CRITICAL VALUE IS > 15.0 mg/L VANCOMYCIN HIGH INTENSITY THERAPY: CRITICAL VALUE IS > 20.0 mg/L PLEASE CONTACT PHARMACY SERVICES (#[id number]) FOR INTERPRETATIONOF RESULTS. THIS RESULT DOES NOT REPRESENT A PEAK OR TROUGHLEVEL FOR THIS DRUG. Serum or plasma vancomycin level (mass/volume) 16.5 ug/mL High 0.0-15.0 [facility] Absolute lymphocyte countOrd ered By: Anurag Irene on 09-07-2024 Lymphocytes Auto (Unsp spec) [#/Vol] 0.95 10*3/uL 0.83-4.51 [facility] Absolute neutrophil countOrd ered By: Anurag Irene on 09-07-2024 Neutrophils (Bld) [#/Vol] 13.3 10*3/uL High 2.0-7.7 [facility] Absolute neutrophil count 13.3 X10^3/uL High 2.0-7.7 [facility] Automated lymphocyte count a s percentage of total leukocytesOrdered By: Anurag Irene on 09-07-2024 Lymphocytes/100 WBC Auto (Unsp spec) 5.8 % Low 19-41 [facility] Basophil percentageOrdered B y: Anurag Irene on 09-07-2024 Basophils/100 WBC (Bld) 0.4 % 0-1 [facility]ophil [facility] 0.4 % 0-[facility] Eosinophil percentageOrdered By: Anurag Irene on 09-07-2024 Eosinophils/100 WBC (Bld) 3.0 % 0-5 [facility] Eosinophil percentage 3.0 % 0-5 [facility] Immature granulocytes/100 WB C Auto (Bld)Ordered By: Anurag Irene on 09-07-2024 Immature granulocytes/100 WBC (Bld) 1.400 % High 0.0-0.9 [facility] Comment on above: IG% - Immature Granu locytes (promyelocytes, myelocytes and metamyelocytes) > 1% indicates that a LEFT SHIFT is Present. Automated immature granulocyte percentage 1.400 % High 0.0-0.9 [facility] Lymphocytes Auto (Unsp spec) [#/Vol]Ordered By: Anurag Irene on 09-07-2024 Lymphocytes (Bld) [#/Vol] 0.95 10*3/uL 0.83-4.51 [facility] Absolute lymphocyte count 0.95 X10^3/uL 0.83-4.51 [facility] Lymphocytes/100 WBC Auto (Un sp spec)Ordered By: Anurag Irene on 09-07-2024 Lymphocytes/100 WBC (Bld) 5.8 % Low 19-41 [facility] Automated lymphocyte count as percentage of total leukocytes 5.8 % Low 19-41 [facility] Monocyte percentageOrdered B y: Anurag Irene on 09-07-2024 Monocytes/100 WBC (Bld) 8.6 % 0-10 [facility] Monocyte percentage 8.6 % 0-10 [facility] Neutrophil percentageOrdered By: Anurag Irene on 09-07-2024 Neutrophils/100 WBC (Bld) 80.8 % High 47-70 [facility] Neutrophil percentage 80.8 % High 47-70 [facility] Nucleated red blood cell per centageOrdered By: Anurag Irene on 09-07-2024 Nucleated RBC/100 WBC (Bld) [Ratio] 0 % 0-5 [facility] Nucleated red blood cell percentage 0 % 0-5 [facility] Blood cultureOrdered By: [place] Irene on 09-06-2024 Bacteria identified Cx Nom (Bld) No growth in 5 days. [facility] Blood culture No growth in 5 days. [facility] Blood cultureOrdered By: Shi Joiner on 09-05-2024 Bacteria identified Cx Nom (Bld) Staphylococcus epidermidis Abnormal [facility] Blood culture Staphylococcus epidermidis Abnormal [facility] Folic acid measurementOrdere d By: Hill Wright on 09-05-2024 Folate 30.10 ng/mL 3.1-55.4 [facility] Folic acid measurement 30.10 ng/mL 3.1-55.4 [facility] Lactic acid measurementOrder ed By: Hill Wright on 09-05-2024 Lactate [Moles/Vol] 2.3 mmol/L High 0.4-2.0 [facility] Comment on above: Critical Result(s) C alled at: 08:26:40 09/05/2024 by: Lucy Haque to [facility]. Results read back by same. Lactic acid measurement 2.3 mmol/L High 0.4-2.0 [facility] Serum ethanol measurementOrd ered By: Hill Wright on 09-05-2024 Ethyl Alcohol Level 4.0 mg/dL [facility] Comment on above: The serum:whole bloo d ethanol ratio is approximately 1.14and varies slightly with hematocrit. Medical Alcohol reference interval and critical value innon-tolerant individuals; 50 - 100 Impairment 100 Intoxication 100 - 250 Severe Poisoning 250 - 400 Deep/possible fatal coma Serum ethanol measurement 4.0 mg/dL [facility] Vitamin B12 measurementOrder ed By: Hill Wright on 09-05-2024 Vitamin B12 Level > 2000 pg/mL High 211-911 [facility] Vitamin B12 measurement > 2000 pg/mL High 211-911 [facility] ALP [Catalytic activity/Vol] Ordered By: Rachel Joiner on 09-04-2024 Serum or plasma alkaline phosphatase measurement 269 U/L High 45-117 [facility] ALT [Catalytic activity/Vol] Ordered By: Rachel Joiner on 09-04-2024 Serum or plasma alanine aminotransferase (ALT) measurement 79 U/L High 16-61 [facility] Albumin [Mass/Vol]Ordered By : Rachel Joiner on 09-04-2024 Serum or plasma albumin measurement (mass/volume) 2.0 g/dL Low 3.2-5.0 [facility] Bilirubin Test strip Ql (U)O rdered By: Rachel Joiner on 09-04-2024 Bilirubin Ql (U) 1 mg/dL High Negative [facility] Comment on above: COLOR OF URINE MAY A FFECT DIPSTICK RESULTS. Bilirubin directOrdered By: Rachel Joiner on 09-04-2024 Bilirubin.direct [Mass/Vol] 1.80 mg/dL High 0.00-0.30 [facility] Bilirubin, totalOrdered By: Rachel Joiner on 09-04-2024 Bilirubin [Mass/Vol] 3.10 mg/dL High 0.20-1.00 [facility] Comment on above: For patients on eltr ombopag therapy, use of Dimension Shelly TBIL is not recommended. Bilirubin, total 3.10 mg/dL High 0.20-1.00 [facility] Bilirubin.direct [Mass/Vol]O rdered By: Rachel Joiner on 09-04-2024 Bilirubin direct 1.80 mg/dL High 0.00-0.30 [facility] Blood cultureOrdered By: Shi Joiner on 09-04-2024 Bacteria identified Cx Nom (Bld) [facility] Clarity (U)Ordered By: Kaz Joiner on 09-04-2024 Urine clarity Clear Clear [facility] Color (U)Ordered By: Rachel Joiner on 09-04-2024 Urine color determination Yellow Yellow [facility] Epithelial cells.squamous LM Ql (Urine sed)Ordered By: Rachel Joiner on 09-04-2024 Epithelial cells.squamous LM.HPF (Urine sed) [#/Area] 0 /[HPF] 0-5 [facility] Glucose Ql (U)Ordered By: Brendan Joiner on 09-04-2024 Urine Glucose (UA) Normal mg/dl Normal [facility] Urine glucose detection Normal mg/dl Normal [facility] HbA1c (Bld) [Mass fraction]O rdered By: Hill Wright on 09-04-2024 Hemoglobin A1c percentage 7.3 % High 3.8-5.6 [facility] Hemoglobin A1c percentageOrd ered By: Hill Wright on 09-04-2024 HbA1c (Bld) [Mass fraction] 7.3 % High 3.8-5.6 [facility] Comment on above: Normal < 5.7 % Predi abetic 5.7 - 6.4 % Diabetic >or= 6.5 % Please note range changes. Ketones Test strip Ql (U)Ord ered By: Rachel Joiner on 09-04-2024 Ketones Ql (U) Negative Negative [facility] Laboratory - Chemistry and C hemistry - challengeOrdered By: Rachel Joiner on 09-04-2024 AST [Catalytic activity/Vol] 156 U/L High 15-37 [facility] Leukocyte esterase Test stri p Ql (U)Ordered By: Rachel Joiner on 09-04-2024 Urine leukocyte esterase detection by dipstick 100 /ul High Negative [facility] Methadone, urineOrdered By: Rachel Joiner on 09-04-2024 Urine Methadone Screen Negative < 300 ng/mL [facility] Microorganism identified Cx Nom (Unsp spec)Ordered By: Rachel Joiner on 09-04-2024 Bacteria Detection (PCR) Staphylococcus epidermidis Abnormal [facility] Bacteria Detection (PCR) mecA Resistance Marker Abnormal [facility] Organism identification mecA Resistance Marker Abnormal [facility] Microscopic analysis of urin e for red blood cells (RBC)Ordered By: Rachel Joiner on 09-04-2024 Urine RBC 10-25 SEEN /hpf 0-5 [facility] Microscopic analysis of urine for red blood cells (RBC) 10-25 SEEN /hpf 0-5 [facility] Mucus LM Ql (Urine sed)Order ed By: Rachel Joiner on 09-04-2024 Mucus Ql (Urine sed) 0 SEEN /hpf [facility] Nitrite Test strip Ql (U)Ord ered By: Rachel Joiner on 09-04-2024 Nitrite Ql (U) Negative Negative [facility] No Panel InformationOrdered By: Rachel Joiner on 09-04-2024 156 U/L High 15-37 [facility] Urine Drug Screen Comment [facility] Comment on above: CONFIRMATORY TESTING FOR [...] MUST BE ORDERED SEPARATELY. USE TESTMNEMONIC: UTCA [facility] Organism identificationOrder ed By: Rachel Joiner on 09-04-2024 Microorganism identified Cx Nom (Unsp spec) Staphylococcus epidermidis Abnormal [facility] Microorganism identified Cx Nom (Unsp spec) mecA Resistance Marker Abnormal [facility] Protein Test strip Ql (U)Ord ered By: Rachel Joiner on 09-04-2024 Protein Ql (U) 30 mg/dl High Negative [facility] Urine protein assay by test strip, semi-quantitative 30 mg/dl High Negative [facility] Quantitative urine opiates m easurementOrdered By: Rachel Joiner on 09-04-2024 Opiates Ql (U) Positive High < 300 ng/mL [facility] Quantitative urine opiates measurement Positive High < 300 ng/mL [facility] Screening prostate specific antigen (PSA) measurementOrdered By: Hill Wright on 09-04-2024 Prostate Specific Antigen Screen 1.41 ng/mL 0.00-4.00 [facility] Comment on above: This test was perfor med using the TPSA assay method for the[employer] chemistry system. Values obtained with differentassay methods cannot be used interchangably.When changing PSA assays in the course of monitoring apatient, additional sequential testing should be carriedout to confirm baseline values. Screening prostate specific antigen (PSA) measurement 1.41 ng/mL 0.00-4.00 [facility] Serum globulin measurementOr dered By: Rachel Joiner on 09-04-2024 Globulin (S) [Mass/Vol] 4.1 g/dL 2.2-4.2 [facility] Serum globulin measurement 4.1 g/dL 2.2-4.2 [facility] Serum or plasma alanine thomas otransferase (ALT) measurementOrdered By: Rachel Joiner on 09-04-2024 ALT [Catalytic activity/Vol] 79 U/L High 16-61 [facility] Serum or plasma albumin roosevelt urement (mass/volume)Ordered By: Rachel Joiner on 09-04-2024 Albumin [Mass/Vol] 2.0 g/dL Low 3.2-5.0 [facility] Serum or plasma alkaline kendrick sphatase measurementOrdered By: Rachel Joiner on 09-04-2024 ALP [Catalytic activity/Vol] 269 U/L High 45-117 [facility] Serum or plasma thyroid stim ulating hormone (TSH) measurement (units/volume)Ordered By: Hill Wright on 09-04-2024 TSH Qn 0.826 uIU/mL 0.358-3.740 [facility] Specific gravity (U) [Rel de nsity]Ordered By: Rachel Joiner on 09-04-2024 Urine specific gravity measurement 1.020 1.002-1.030 [facility] Squamous epithelial cells de tection in urine sediment by light microscopyOrdered By: Rachel Joiner on 09-04-2024 Epithelial cells.squamous LM Ql (Urine sed) 0 SEEN /hpf 0-5 [facility] Squamous epithelial cells detection in urine sediment by light microscopy 0 SEEN /hpf [facility] TSH QnOrdered By: Hill patino on 09-04-2024 Thyroid Stimulating Hormone (TSH) 0.826 uIU/mL 0.358-3.740 [facility] Serum or plasma thyroid stimulating hormone (TSH) measurement (units/volume) 0.826 uIU/mL 0.358-3.740 [facility] Total proteinOrdered By: Shi Joiner on 09-04-2024 Protein [Mass/Vol] 6.1 g/dL Low 6.4-8.2 [facility] Total protein 6.1 g/dL Low 6.4-8.2 [facility] Urine amphetamine measuremen tOrdered By: Rachel Joiner on 09-04-2024 Amphetamines Ql (U) Negative <1000 ng/mL [facility] Urine barbiturates measureme ntOrdered By: Rachel Joiner on 09-04-2024 Urine Barbiturates Screen Negative < 200 ng/mL [facility] Urine benzodiazepine levelOr dered By: Rachel Joiner on 09-04-2024 Benzodiazepines Ql (U) Negative < 200 ng/mL [facility] Urine blood detectionOrdered By: Rachel Joiner on 09-04-2024 Urine Occult Blood 150 /ul High Negative [facility] Urine blood detection 150 /ul High Negative [facility] Urine clarityOrdered By: Shi Joiner on 09-04-2024 Clarity (U) Clear Clear [facility] Urine cocaine levelOrdered B y: Rachel Joiner on 09-04-2024 Cocaine Ql (U) Negative < 300 ng/mL [facility] Urine color determinationOrd ered By: Rachel Joiner on 09-04-2024 Color (U) Yellow Yellow [facility] Urine cultureOrdered By: Hugo Wright on 09-04-2024 Bacteria identified Cx Nom (U) Staphylococcus epidermidis Abnormal [facility] Urine culture Staphylococcus epidermidis Abnormal [facility] Urine [id number] abinol (THC) measurementOrdered By: Rachel Joiner on 09-04-2024 Cannabinoids Screen Ql (U) Negative < 50 ng/mL [facility] Urine glucose detectionOrder ed By: Rachel Joiner on 09-04-2024 Glucose Ql (U) Normal mg/dl Normal [facility] Urine ketones detection by t est stripOrdered By: Rachel Joiner on 09-04-2024 Urine ketones detection by test strip Negative < 50 ng/mL [facility] Urine leukocyte esterase det ection by dipstickOrdered By: Rachel Joiner on 09-04-2024 Leukocyte esterase Test strip Ql (U) 100 /ul High Negative [facility] Urine methylenedioxymethamph etamine (MDMA) measurementOrdered By: Rachel Joiner on 09-04-2024 MDMA (Ecstasy) Screen Negative < 500 ng/mL [facility] Urine pHOrdered By: Rachel silva on 09-04-2024 pH (U) 6.0 [pH] 5.0 - 8.0 [facility] Urine phencyclidine (PCP) de tectionOrdered By: Rachel Joiner on 09-04-2024 Phencyclidine Ql (U) Negative < 25 ng/mL [facility] Urine sediment bacteria coun t by microscopy (number/high power field)Ordered By: Rachel Joiner on 09-04-2024 Bacteria LM.HPF (Urine sed) [#/Area] 0 /[HPF] None Seen [facility] Urine specific gravity measu rementOrdered By: Rachel Joiner on 09-04-2024 Specific gravity (U) [Rel density] 1.020 1.002-1.030 [facility] Urine total bilirubin detect ion by test stripOrdered By: Rachel Joiner on 09-04-2024 Urine total bilirubin detection by test strip 1 mg/dL High Normal [facility] Urine urobilinogen measureme ntOrdered By: Rachel Joiner on 09-04-2024 Urobilinogen Ql (U) 1 mg/dl High Normal [facility] Urobilinogen Ql (U)Ordered B y: Rachel Joiner on 09-04-2024 Urobilinogen (U) [Mass/Vol] 1 mg/dL High Normal [facility] Venous blood ammonia measure mentOrdered By: Rachel Joiner on 09-04-2024 Ammonia (P) [Moles/Vol] 26.0 umol/L [facility] Venous blood ammonia measurement 26.0 umol/L [facility] White blood cell countOrdere d By: Rachel Joiner on 09-04-2024 Urine WBC 5-10 SEEN /hpf 0-5 [facility] Comment on above: Previous reported re sult: 0 SEEN /hpfEdited by: DANIEL on 09/04/24:2337 AMENDED REPORT 09/04/242336 WBC previously reported as: 0 SEEN /hpf White blood cell count 5-10 SEEN /hpf 0-5 [facility] White blood cell count 5-10 SEEN /hpf 0-5 [facility] pH (U)Ordered By: Rachel lambert on 09-04-2024 Urine pH 6.0 5.0 - 8.0 [facility] Absolute lymphocyte countOrd ered By: Bola Meraz on 09-02-2024 Lymphocytes Auto (Unsp spec) [#/Vol] 1.04 10*3/uL 0.83-4.51 [facility] Absolute neutrophil countOrd ered By: Bola Meraz on 09-02-2024 Neutrophils (Bld) [#/Vol] 14.0 10*3/uL High 2.0-7.7 [facility] Absolute neutrophil count 14.0 X10^3/uL High 2.0-7.7 [facility] Automated lymphocyte count a s percentage of total leukocytesOrdered By: Bola Meraz on 09-02-2024 Lymphocytes/100 WBC Auto (Unsp spec) 6.3 % Low 19-41 [facility] Basophil percentageOrdered B y: Bola Meraz on 09-02-2024 Basophils/100 WBC (Bld) 0.4 % 0-1 [facility] Basophil percentage 0.4 % 0-1 [facility] Blood urea nitrogen (BUN)/cr eatinine ratioOrdered By: Bola Meraz on 09-02-2024 Urea nitrogen/Creatinine [Mass ratio] 16.9 mg/mg 10- [facility] Blood urea nitrogen (BUN)/creatinine ratio 16.9 RATIO - [facility] Calcium [Mass/Vol]Ordered By : Bola Meraz on 09-02-2024 Serum or plasma calcium measurement (mass/volume) 8.9 mg/dL 8.5-10.1 [facility] Carbon dioxide measurementOr dered By: Bola Meraz on 09-02-2024 CO2 [Moles/Vol] 19.0 mmol/L Low 21.0-32.0 [facility] Carbon dioxide measurement 19.0 mmol/L Low 21.0-32.0 [facility] Chloride measurementOrdered By: Bola Meraz on 09-02-2024 Chloride [Moles/Vol] 107 mmol/L 98-107 [facility] Chloride measurement 107 mmol/L 98-107 [facility] Creatinine [Mass/Vol]Ordered By: Bola Meraz on 09-02-2024 Serum or plasma creatinine measurement (mass/volume) 2.54 mg/dL High 0.70-1.30 [facility] Eosinophil percentageOrdered By: Bola Meraz on 09-02-2024 Eosinophils/100 WBC (Bld) 1.3 % 0-5 [facility] Eosinophil percentage 1.3 % 0-5 [facility] Erythrocyte distribution wid th (RBC) [Ratio]Ordered By: Bola Meraz on 09-02-2024 Erythrocyte distribution width ratio 15.7 % High 11.6-14.6 [facility] Erythrocyte distribution width standard deviation 47.0 fl High 35.1-43.9 [facility] Erythrocyte distribution wid th ratioOrdered By: Bola Meraz on 09-02-2024 Erythrocyte distribution width (RBC) [Ratio] 15.7 % High 11.6-14.6 [facility] Erythrocyte distribution wid th standard deviationOrdered By: Bola Meraz on 09-02-2024 Erythrocyte distribution width (RBC) [Entitic vol] 47.0 fL High 35.1-43.9 [facility] Erythrocyte distribution width (RBC) [Ratio] 47.0 fl High 35.1-43.9 [facility] Estimated glomerular filtrat ion rate (GFR) AmericanOrdered By: Bola Meraz on 09-02-2024 Estimated GFR (MDRD) Amer 34 mL/min Low >60 [facility] Comment on above: GFR Calc Estimated glomerular filtration rate (GFR) 34 mL/min Low >60 [facility] Estimation of creatinine carol[place] aranceOrdered By: Bola eMraz on 09-02-2024 Estimated Creatinine Clearance Calc 37.67 ml/min [facility] Estimation of creatinine clearance 37.67 ml/min [facility] Glomerular filtration rate ( GFR) estimationOrdered By: Bola Meraz on 09-02-2024 Estimated GFR (MDRD) Non-Af Amer 28 mL/min Low >60 [facility] Comment on above: Non- GFR Calc GFR/1.73 sq M.predicted among non-blacks MDRD (S/P/Bld) [Vol rate/Area] 28 mL/min/{1.73_m2} Low >60 [facility] Glomerular filtration rate (GFR) estimation 28 mL/min Low >60 [facility] Glucose measurementOrdered B y: Bola Meraz on 09-02-2024 Glucose [Mass/Vol] 187 mg/dL [address] Comment on above: Fasting Glucose resu lt greater than or equal to 126 mg/dL suggests DIABETES MELLITUS per A.D.A. criteria. Glucose measurement 187 mg/dL [address] [facility] Glucose measurement at [facility] deOrdered By: Rick Carlin on 09-02-2024 Bedside Glucose (Misc Panel) 168 mg/dL [address] Comment on above: MANAGEMENT OF PATIEN T CARE PER NURSING PROTOCOL Glucose [Mass/Vol] 168 mg/dL High [facility] Glucose measurement at bedside 168 mg/dL [address] [facility] Hematocrit Auto (Bld) [Volum e fraction]Ordered By: Bola Meraz on 09-02-2024 Hematocrit (Bld) [Volume fraction] 30.8 % Low 40-54 [facility] Automated blood hematocrit (percentage) 30.8 % Low 40-54 [facility] Hemoglobin measurementOrdere d By: Bola Meraz on 09-02-2024 Hemoglobin (Bld) [Mass/Vol] 10.7 g/dL Low 13.0-16.5 [facility] Hemoglobin measurement 10.7 g/dL Low 13.0-16.5 [facility] Immature granulocytes/100 WB C Auto (Bld)Ordered By: Bola Meraz on 09-02-2024 Immature granulocytes/100 WBC (Bld) 1.300 % High 0.0-0.9 [facility] Comment on above: IG% - Immature Granu locytes (promyelocytes, myelocytes and metamyelocytes) > 1% indicates that a LEFT SHIFT is Present. Automated immature granulocyte percentage 1.300 % High 0.0-0.9 [facility] Lymphocytes Auto (Unsp spec) [#/Vol]Ordered By: Bola Meraz on 09-02-2024 Lymphocytes (Bld) [#/Vol] 1.04 10*3/uL 0.83-4.51 [facility] Absolute lymphocyte count 1.04 X10^3/uL 0.83-4.51 [facility] Lymphocytes/100 WBC Auto (Un sp spec)Ordered By: Bola Meraz on 09-02-2024 Lymphocytes/100 WBC (Bld) 6.3 % Low 19-41 [facility] Automated lymphocyte count as percentage of total leukocytes 6.3 % Low 19-41 [facility] MCV (RBC) [Entitic vol]Order ed By: Bola Meraz on 09-02-2024 MCV (mean corpuscular volume) determination 83.7 fL 80-94 [facility] MCV (mean corpuscular volume ) determinationOrdered By: Bola Meraz on 09-02-2024 MCV (RBC) [Entitic vol] 83.7 fL 80-94 [facility] Mean corpuscular hemoglobin (MCH) determinationOrdered By: Bola Meraz on 09-02-2024 MCH (RBC) [Entitic mass] 29.1 pg 27.0-32.0 [facility] Mean corpuscular hemoglobin (MCH) determination 29.1 pg 27.0-32.0 [facility] Mean corpuscular hemoglobin concentration (MCHC) determinationOrdered By: Bola Meraz on 09-02-2024 MCHC (RBC) [Mass/Vol] 34.7 g/dL 32-36 [facility] Mean corpuscular hemoglobin concentration (MCHC) determination 34.7 g/dL -36 [facility] Mean platelet volume determi nationOrdered By: Bola Meraz on 09-02-2024 Platelet mean volume (Bld) [Entitic vol] 12.8 fL High 6.2-12.0 [facility] Mean platelet volume determination 12.8 fl High 6.2-12.0 [facility] Monocyte percentageOrdered B y: Bola Meraz on 09-02-2024 Monocytes/100 WBC (Bld) 6.0 % 0-10 [facility] Monocyte percentage 6.0 % 0-10 [facility] Neutrophil percentageOrdered By: Bola Meraz on 09-02-2024 Neutrophils/100 WBC (Bld) 84.7 % High 47-70 [facility] Neutrophil percentage 84.7 % High 47-70 [facility] Nucleated red blood cell per centageOrdered By: Bola Meraz on 09-02-2024 Nucleated RBC/100 WBC (Bld) [Ratio] 0 % 0-5 [facility] Nucleated red blood cell percentage 0 % 0-5 [facility] Platelet countOrdered By: Oliver on 09-02-2024 Platelets (Bld) [#/Vol] 82 10*3/uL Low 150-450 [facility] Platelet count 82 K/mm3 Low 150-450 [facility] Potassium measurementOrdered By: Bola Meraz on 09-02-2024 Potassium [Moles/Vol] 4.0 mmol/L 3.5-5.1 [facility] Potassium measurement 4.0 mmol/L 3.5-5.1 [facility] RBC Auto (Bld) [#/Vol]Ordere d By: Bola Meraz on 09-02-2024 RBC (Bld) [#/Vol] 3.68 10*6/uL Low 4.6-6.2 [facility] Automated blood erythrocyte count 3.68 M/mm3 Low 4.6-6.2 [facility] Serum anion gap measurementO rdered By: Bola Mreaz on 09-02-2024 Anion gap [Moles/Vol] 8 mmol/L 5-15 [facility] Serum anion gap measurement 8 5-15 [facility] Serum or plasma calcium roosevelt urement (mass/volume)Ordered By: Bola Meraz on 09-02-2024 Calcium [Mass/Vol] 8.9 mg/dL 8.5-10.1 [facility] Serum or plasma creatinine m easurement (mass/volume)Ordered By: Bola Meraz on 09-02-2024 Creatinine [Mass/Vol] 2.54 mg/dL High 0.70-1.30 [facility] Comment on above: The validity of the calculated GFR & GFRAA in patients over 70 years has not been determined. Clinical correlation is essential. Serum or plasma urea nitroge n measurement (mass/volume)Ordered By: Bola Meraz on 09-02-2024 Urea nitrogen [Mass/Vol] 43 mg/dL High 7-18 [facility] Sodium levelOrdered By: Deanna Meraz on 09-02-2024 Sodium [Moles/Vol] 133 mmol/L Low 136-145 [facility] Sodium level 133 mmol/L Low 136-145 [facility] Urea nitrogen [Mass/Vol]Orde red By: Bola Meraz on 09-02-2024 Serum or plasma urea nitrogen measurement (mass/volume) 43 mg/dL High 7-18 [facility] White blood cell (WBC) count Ordered By: Bola Meraz on 09-02-2024 WBC (Bld) [#/Vol] 16.5 10*3/uL High 4.4-11.0 [facility] White blood cell (WBC) count 16.5 K/mm3 High 4.4-11.0 [facility] ALP [Catalytic activity/Vol] Ordered By: Maria Guadalupe Shore on 08-30-2024 Serum or plasma alkaline phosphatase measurement 143 U/L High 45-117 [facility] ALT [Catalytic activity/Vol] Ordered By: Maria Guadalupe Shore on 08-30-2024 Serum or plasma alanine aminotransferase (ALT) measurement 19 U/L 16-61 [facility] Albumin [Mass/Vol]Ordered By : Maria Guadalupe Shore on 08-30-2024 Serum or plasma albumin measurement (mass/volume) 1.9 g/dL Low 3.2-5.0 [facility] Bilirubin directOrdered By: Maria Guadalupe Shore on 08-30-2024 Bilirubin.direct [Mass/Vol] 0.83 mg/dL High 0.00-0.30 [facility] Bilirubin, totalOrdered By: Maria Guadalupe Shore on 08-30-2024 Bilirubin [Mass/Vol] 1.30 mg/dL High 0.20-1.00 [facility] Comment on above: For patients on eltr ombopag therapy, use of Dimension Shelly TBIL is not recommended. Bilirubin, total 1.30 mg/dL High 0.20-1.00 [facility] Bilirubin.direct [Mass/Vol]O rdered By: Maria Guadalupe Shore on 08-30-2024 Bilirubin direct 0.83 mg/dL High 0.00-0.30 [facility] Ferritin measurementOrdered By: Maria Guadalupe Shore on 08-30-2024 Ferritin [Mass/Vol] 85 ng/mL 388 [facility] Ferritin measurement 85 ng/mL 388 [facility] HbA1c (Bld) [Mass fraction]O rdered By: Maria Guadalupe Shore on 08-30-2024 Hemoglobin A1c percentage 7.9 % High 3.8-5.6 [facility] Hemoglobin A1c percentageOrd ered By: Maria Guadalupe Shore on 08-30-2024 HbA1c (Bld) [Mass fraction] 7.9 % High 3.8-5.6 [facility] Comment on above: Normal < 5.7 % Predi abetic 5.7 - 6.4 % Diabetic >or= 6.5 % Please note range changes. Iron (Unsp spec) [Mass/Mass] Ordered By: Maria Guadalupe Shore on 08-30-2024 Iron [Mass/Vol] 62 ug/dL Low 65-175 [facility] Iron measurement (mass/mass) 62 ug/dL Low 65-175 [facility] Iron measurement (mass/mass) Ordered By: Maria Guadalupe Shore on 08-30-2024 Iron (Unsp spec) [Mass/Mass] 62 ug/dL Low 65-175 [facility] Iron saturation [Mass fracti on]Ordered By: Maria Guadalupe Shore on 08-30-2024 Iron Saturation 33.9 % 15.0-55.0 [facility] Serum or plasma iron saturation measurement (mass fraction) 33.9 % 15.0-55.0 [facility] Laboratory - Chemistry and C hemistry - challengeOrdered By: Maria Guadalupe Shore on 08-30-2024 AST [Catalytic activity/Vol] 22 U/L [facility] No Panel InformationOrdered By: Maria Guadalupe Shore on 08-30-2024 22 U/L [facility] Serum globulin measurementOr dered By: Maria Guadalupe Shore on 08-30-2024 Globulin (S) [Mass/Vol] 3.4 g/dL 2.2-4.2 [facility] Serum globulin measurement 3.4 g/dL 2.2-4.2 [facility] Serum or plasma alanine thomas otransferase (ALT) measurementOrdered By: Maria Guadalupe Shore on 08-30-2024 ALT [Catalytic activity/Vol] 19 U/L 16-61 [facility] Serum or plasma albumin roosevelt urement (mass/volume)Ordered By: Maria Guadalupe Shore on 08-30-2024 Albumin [Mass/Vol] 1.9 g/dL Low 3.2-5.0 [facility] Serum or plasma alkaline kendrick sphatase measurementOrdered By: Maria Guadalupe Shore on 08-30-2024 ALP [Catalytic activity/Vol] 143 U/L High 45-117 [facility] Serum or plasma iron saturat ion measurement (mass fraction)Ordered By: Maria Guadalupe Shore on 08-30-2024 Iron saturation [Mass fraction] 33.9 % 15.0-55.0 [facility] TIBCOrdered By: Maria Guadalupe Shore on 08-30-2024 Total Iron Binding Capacity 183 ug/dL Low 250-450 [facility] TIBC 183 ug/dL Low 250-450 [facility] Total proteinOrdered By: Aut davi Shore on 08-30-2024 Protein [Mass/Vol] 5.3 g/dL Low 6.4-8.2 [facility] Total protein 5.3 g/dL Low 6.4-8.2 [facility] Venous blood ammonia measure mentOrdered By: Maria Guadalupe Shore on 08-30-2024 Ammonia (P) [Moles/Vol] 64.0 umol/L High 1132 [facility] Venous blood ammonia measurement 64.0 umol/L High [facility] Activated partial thrombopla stin time (aPTT) in platelet poor plasma by coagulation aOrdered By: Luis Carlos Anderson on 08-29-2024 aPTT Coag (PPP) [Time] 40.9 s High 24.1-36.2 [facility] Albumin to globulin ratioOrd ered By: Luis Carlos Anderson on 08-29-2024 Albumin/Globulin [Mass ratio] 0.4 {ratio} Low 0.9-2.4 [facility] Albumin to globulin ratio 0.4 RATIO Low 0.9-2.4 [facility] Bacteria LM.HPF (Urine sed) [#/Area]Ordered By: Luis Carlos Anderson on 08-29-2024 Urine Bacteria RARE /hpf None Seen [facility] Urine sediment bacteria count by microscopy (number/high power field) RARE /hpf None Seen [facility] Bilirubin Test strip Ql (U)O rdered By: Luis Carlos Anderson on 08-29-2024 Bilirubin Ql (U) 1 mg/dL High Negative [facility] Comment on above: COLOR OF URINE MAY A FFECT DIPSTICK RESULTS. Clarity (U)Ordered By: Juan Alberto Anderson on 08-29-2024 Urine clarity Clear Clear [facility] Color (U)Ordered By: Luis Carlos Anderson on 08-29-2024 Urine color determination Yellow Yellow [facility] Creatinine (U) [Mass/Vol]Ord ered By: Maria Guadalupe White on 08-29-2024 Urine creatinine measurement (mass/volume) 173.00 mg/dL NO RANGE EST. [facility] Epithelial cells.squamous LM Ql (Urine sed)Ordered By: Luis Carlos Anderson on 08-29-2024 Epithelial cells.squamous LM.HPF (Urine sed) [#/Area] 0 /[HPF] 0-5 [facility] Squamous epithelial cells detection in urine sediment by light microscopy 0 SEEN /hpf 0-5 [facility] Glucose Ql (U)Ordered By: Yaya Anderson on 08-29-2024 Glucose (U) [Mass/Vol] 50 mg/dL High Normal [facility] Urine glucose detection 50 mg/dl High Normal [facility] International normalized rat io (INR) calculationOrdered By: Luis Carlos Anderson on 08-29-2024 INR Coag (Bld) [Relative time] 1.7 {INR} [facility] normalized ratio (INR) calculation 1.7 [facility] Ketones Test strip Ql (U)Ord ered By: Luis Carlos Anderson on 08-29-2024 Ketones Ql (U) Negative Negative [facility] Leukocyte esterase Test stri p Ql (U)Ordered By: Luis Carlos Anderson on 08-29-2024 Urine leukocyte esterase detection by dipstick 500 /ul High Negative [facility] Lipase measurementOrdered By : Luis Carlos Anderson on 08-29-2024 Lipase [Catalytic activity/Vol] 26 U/L 13-75 [facility] Comment on above: Please note:LIPASE r evised reference range effective 22. New Lipase methodology. Expected to produce lower values than the previous assay method. NEW Reference Range: 13 - 75 U/L Lipase measurement 26 U/L 13-75 [facility] Magnesium measurementOrdered By: Maria Guadalupe Shore on 08-29-2024 Magnesium [Mass/Vol] 2.7 mg/dL High 1.6-2.6 [facility] Magnesium measurement 2.7 mg/dL High 1.6-2.6 [facility] Microscopic analysis of urin e for red blood cells (RBC)Ordered By: Luis Carlos Anderson on 08-29-2024 Urine RBC 5-10 SEEN /hpf 0-5 [facility] Microscopic analysis of urine for red blood cells (RBC) 5-10 SEEN /hpf 0-5 [facility] Mucus LM Ql (Urine sed)Order ed By: Luis Carlos Anderson on 08-29-2024 Mucus Ql (Urine sed) 1+ /hpf [facility] Mucus detection in urine sediment by light microscopy 1+ /hpf [facility] Nitrite Test strip Ql (U)Ord ered By: Luis Carlos Anderson on 08-29-2024 Nitrite Ql (U) Negative Negative [facility] Phosphorus measurementOrdere d By: Maria Guadalupe Shore on 08-29-2024 Phosphorus Level 4.9 mg/dL 2.5-4.9 [facility] Phosphorus measurement 4.9 mg/dL 2.5-4.9 [facility] Protein Test strip Ql (U)Ord ered By: Luis Carlos Anderson on 08-29-2024 Protein Ql (U) 30 mg/dl High Negative [facility] Urine protein assay by test strip, semi-quantitative 30 mg/dl High Negative [facility] Prothrombin timeOrdered By: Luis Carlos Anderson on 08-29-2024 PT Coag (PPP) [Time] 20.0 s High 11.7-14.9 [facility] Prothrombin time 20.0 SECONDS High 11.7-14.9 [facility] Sodium urOrdered By: Maria Guadalupe Shore on 08-29-2024 Sodium (U) [Moles/Vol] 30 mmol/L Not Establ. [facility] Sodium [Moles/Vol] 30 mmol/L [facility] mmol/L Not Establ. [facility] Specific gravity (U) [Rel de nsity]Ordered By: Luis Carlos Anderson on 08-29-2024 Urine specific gravity measurement 1.015 1.002-1.030 [facility] Squamous epithelial cells de tection in urine sediment by light microscopyOrdered By: Luis Carlos Anderson on 08-29-2024 Epithelial cells.squamous LM Ql (Urine sed) 0 SEEN /hpf 0-5 [facility] Urine blood detectionOrdered By: Luis Carlos Anderson on 08-29-2024 Urine Occult Blood 150 /ul High Negative [facility] Urine blood detection 150 /ul High Negative [facility] Urine clarityOrdered By: Joann Anderson on 08-29-2024 Clarity (U) Clear Clear [facility] Urine color determinationOrd ered By: Luis Carlos Anderson on 08-29-2024 Color (U) Yellow Yellow [facility] Urine creatinine measurement (mass/volume)Ordered By: Maria Guadalupe Shore on 08-29-2024 Creatinine (U) [Mass/Vol] 173.00 mg/dL NO RANGE EST. [facility] Urine cultureOrdered By: Joann Anderson on 08-29-2024 Bacteria identified Cx Nom (U) Culture exhibits no growth. [facility] Urine culture Culture exhibits no growth. [facility] Urine glucose detectionOrder ed By: Luis Carlos Anderson on 08-29-2024 Glucose Ql (U) 50 mg/dl High Normal [facility] Urine ketones detection by t est stripOrdered By: Luis Carlos Anderson on 08-29-2024 Urine ketones detection by test strip Negative Negative [facility] Urine leukocyte esterase det ection by dipstickOrdered By: Luis Carlos Anderson on 08-29-2024 Leukocyte esterase Test strip Ql (U) 500 /ul High Negative [facility] Urine pHOrdered By: Luis Carlos hammond on 08-29-2024 pH (U) 6.0 [pH] 5.0 - 8.0 [facility] Urine sediment bacteria coun t by microscopy (number/high power field)Ordered By: Luis Carlos Anderson on 08-29-2024 Bacteria LM.HPF (Urine sed) [#/Area] RARE /hpf None Seen [facility] Urine specific gravity measu rementOrdered By: Luis Carlos Anderson on 08-29-2024 Specific gravity (U) [Rel density] 1.015 1.002-1.030 [facility] Urine total bilirubin detect ion by test stripOrdered By: Luis Carlos Anderson on 08-29-2024 Urine total bilirubin detection by test strip 1 mg/dL High Normal [facility] Urine urobilinogen measureme ntOrdered By: Luis Carlos Anderson on 08-29-2024 Urobilinogen Ql (U) 1 mg/dl High Normal [facility] Urobilinogen Ql (U)Ordered B y: Luis Carlos Anderson on 08-29-2024 Urobilinogen (U) [Mass/Vol] 1 mg/dL High Normal [facility] White blood cell countOrdere d By: Luis Carlos Anderson on 08-29-2024 Urine WBC 10-25 SEEN /hpf 0-5 [facility] White blood cell count 10-25 SEEN /hpf 0-5 [facility] White blood cell count 10-25 SEEN /hpf 0-5 [facility] aPTT Coag (PPP) [Time]Ordere d By: Luis Carlos Anderson on 08-29-2024 aPTT Coag (Bld) [Time] 40.9 s High 24.1-36.2 [facility] Activated partial thromboplastin time (aPTT) in platelet poor plasma by coagulation a 40.9 Seconds High 24.1-36.2 [facility] pH (U)Ordered By: Ashu on 08-29-2024 Urine pH 6.0 5.0 - 8.0 [facility] Vital Signs Date Time Vital Sign Value Performing Clinician Facility 04-10-2025 07:45-0400 Body temperature 98 [degF] Josy RONQUILLO Work Phone: [facility] 04-10-2025 07:45-0400 Diastolic blood pressure 57 mm[Hg] Josy RONQUILLO Work Phone: [facility] 04-10-2025 07:45-0400 Heart rate 80 /min Josy Tannhof [employer] Work Phone: 9(427)[phone] [place] [address] 04-10-2025 07:45-0400 Respiratory rate 16 /min Josy Obrienf [employer] Work Phone: 1(400)625-929350 [place] [address] 04-10-2025 07:45-0400 SaO2% (BldA) [Mass fraction] 98 % Josy Obrienf [employer] Work Phone: 4(785)137-261650 [place] [address] 04-10-2025 07:45-0400 Systolic blood pressure 109 mm[Hg] Josy Obrienf [employer] Work Phone: 4(642)797-422650 [place] [address] 04-10-2025 06:00-0400 Body mass index (BMI) [Ratio] 32 kg/m2 Josy Obrienf [employer] Work Phone: 0(148)658-424250 [place] [address] 04-10-2025 06:00-0400 Body weight 98.1 kg Josy Elias [employer] Work Phone: 0(591)532-299350 [place] [address] 04-08-2025 13:18-0400 Body height 175.26 cm Josy Obrienf [employer] Work Phone: 0(944)229-322750 [place] [address] 04-07-2025 22:05-0400 Body mass index (BMI) [Ratio] 33.3 kg/m2 Josy Obrienf [employer] Work Phone: 8(206)418-305850 [place] [address] 04-07-2025 22:05-0400 Body temperature 98 [degF] Josy Obrienf [employer] Work Phone: 6(295)906-018150 [place] [address] 04-07-2025 22:05-0400 Body weight 102.3 kg Josy Elias [employer] Work Phone: 3(575)638-994050 [place] [address] 04-07-2025 22:05-0400 Diastolic blood pressure 70 mm[Hg] Josy Obrienf [employer] Work Phone: 3(556)765-632750 [place] [address] 04-07-2025 22:05-0400 Heart rate 74 /min Josy Obrienf [employer] Work Phone: 9(936)927-962750 [place] [address] 04-07-2025 22:05-0400 Respiratory rate 15 /min Josy Obrienf [employer] Work Phone: 0(069)061-173861 [place] [address] 04-07-2025 22:05-0400 SaO2% (BldA) [Mass fraction] 100 % Josy Obrienf [employer] Work Phone: 4(554)708-564150 [place] [address] 04-07-2025 22:05-0400 Systolic blood pressure 112 mm[Hg] Josy Obrienf [employer] Work Phone: 6(919)182-063350 [place] [address] 04-07-2025 18:05-0400 Body height 175.26 cm Josy Obrienf [employer] Work Phone: 0(851)994-870350 [place] [address] 04-03-2025 20:14-0400 Body temperature 97.8 [degF] Josy Obrienf [employer] Work Phone: 1(579)670-634250 [place] [address] 04-03-2025 20:14-0400 Diastolic blood pressure 83 mm[Hg] Josy Obrienf [employer] Work Phone: 7(352)413-992950 [place] [address] 04-03-2025 20:14-0400 Heart rate 109 /min Josy Obrienf [employer] Work Phone: 3(752)667-827750 [place] [address] 04-03-2025 20:14-0400 Respiratory rate 20 /min Josy Obrienf [employer] Work Phone: 8(532)690-520350 [place] [address] 04-03-2025 20:14-0400 SaO2% (BldA) [Mass fraction] 95 % Josy Obrienf [employer] Work Phone: 8(155)432-064750 [place] [address] 04-03-2025 20:14-0400 Systolic blood pressure 117 mm[Hg] Josy Baumannhof [employer] Work Phone: 0(118)023-695850 [place] [address] 03-30-2025 13:05-0400 Body temperature 97.3 [degF] Josy Obrienf [employer] Work Phone: 9(801)559-172350 [place] [address] 03-30-2025 13:05-0400 Diastolic blood pressure 63 mm[Hg] Josy Baumannhof [employer] Work Phone: 9(926)396-012850 [place] [address] 03-30-2025 13:05-0400 Heart rate 75 /min Josy Elias [employer] Work Phone: [facility] 03-30-2025 13:05-0400 Respiratory rate 16 /min Josy Elias [employer] Work Phone: [facility] 03-30-2025 13:05-0400 SaO2% (BldA) [Mass fraction] 100 % Josy Elias [employer] Work Phone: [facility] 03-30-2025 13:05-0400 Systolic blood pressure 102 mm[Hg] Josy Elias [employer] Work Phone: 3(382)[phone] [place] [address] 03-30-2025 10:56-0400 Body mass index (BMI) [Ratio] 29.9 kg/m2 Josy Elias [employer] Work Phone: [facility] 03-30-2025 10:56-0400 Body weight 92 kg Josy Elias [employer] Work Phone: [facility] 03-11-2025 22:11-0400 Body temperature 98.1 [degF] No Primary Care Physician [facility] 03-11-2025 22:11-0400 Diastolic blood pressure 65 mm[Hg] No Primary Care Physician [facility] 03-11-2025 22:11-0400 Heart rate 70 /min No Primary Care Physician [facility] 03-11-2025 22:11-0400 Respiratory rate 16 /min No Primary Care Physician [facility] 03-11-2025 22:11-0400 SaO2% (BldA) [Mass fraction] 100 % No Primary Care Physician [facility] 03-11-2025 22:11-0400 Systolic blood pressure 98 mm[Hg] No Primary Care Physician [facility] 03-11-2025 17:10-0400 Body height 175.26 cm No Primary Care Physician [facility] 03-11-2025 17:10-0400 Body mass index (BMI) [Ratio] 29.8 kg/m2 No Primary Care Physician [facility] 03-11-2025 17:10-0400 Body weight 91.62 kg No Primary Care Physician [facility] 03-10-2025 14:16-0400 Body mass index (BMI) [Ratio] 29 kg/m2 No Primary Care Physician [facility] 03-10-2025 14:16-0400 Body weight 89.35 kg No Primary Care Physician [facility] 03-10-2025 14:16-0400 Diastolic blood pressure 59 mm[Hg] No Primary Care Physician [facility] 03-10-2025 14:16-0400 Heart rate 77 /min No Primary Care Physician [facility] 03-10-2025 14:16-0400 Respiratory rate 17 /min No Primary Care Physician [facility] 03-10-2025 14:16-0400 SaO2% (BldA) [Mass fraction] 99 % No Primary Care Physician [facility] 03-10-2025 14:16-0400 Systolic blood pressure 95 mm[Hg] No Primary Care Physician [facility] 03-04-2025 12:36-0400 Diastolic blood pressure 64 mm[Hg] No Primary Care Physician [facility] 03-04-2025 12:36-0400 Heart rate 68 /min No Primary Care Physician [facility] 03-04-2025 12:36-0400 Respiratory rate 16 /min No Primary Care Physician [facility] 03-04-2025 12:36-0400 Systolic blood pressure 103 mm[Hg] No Primary Care Physician [facility] 02-27-2025 14:46-0400 Body temperature 98.4 [degF] No Primary Care Physician [facility] 02-27-2025 14:46-0400 Diastolic blood pressure 67 mm[Hg] No Primary Care Physician [facility] 02-27-2025 14:46-0400 Heart rate 87 /min No Primary Care Physician [facility] 02-27-2025 14:46-0400 Respiratory rate 16 /min No Primary Care Physician [facility] 02-27-2025 14:46-0400 SaO2% (BldA) [Mass fraction] 96 % No Primary Care Physician [facility] 02-27-2025 14:46-0400 Systolic blood pressure 119 mm[Hg] No Primary Care Physician [facility] 02-26-2025 15:23-0400 Body weight 90.26 kg No Primary Care Physician [facility] 02-25-2025 11:36-0400 Body mass index (BMI) [Ratio] 31.9 kg/m2 No Primary Care Physician [facility] 02-17-2025 17:05-0400 Body temperature 98.2 [degF] No Primary Care Physician [facility] 02-17-2025 17:05-0400 Diastolic blood pressure 71 mm[Hg] No Primary Care Physician [facility] 02-17-2025 17:05-0400 Heart rate 74 /min No Primary Care Physician [facility] 02-17-2025 17:05-0400 Respiratory rate 16 /min No Primary Care Physician [facility] 02-17-2025 17:05-0400 SaO2% (BldA) [Mass fraction] 98 % No Primary Care Physician [facility] 02-17-2025 17:05-0400 Systolic blood pressure 123 mm[Hg] No Primary Care Physician [facility] 02-16-2025 19:56-0400 Body height 175.26 cm No Primary Care Physician [facility] 02-16-2025 19:56-0400 Body mass index (BMI) [Ratio] 31.1 kg/m2 No Primary Care Physician [facility] 02-16-2025 19:56-0400 Body weight 95.6 kg No Primary Care Physician [facility] 02-16-2025 19:34-0400 Body temperature 97.8 [degF] No Primary Care Physician [facility] 02-16-2025 19:34-0400 Diastolic blood pressure 61 mm[Hg] No Primary Care Physician [facility] 02-16-2025 19:34-0400 Heart rate 76 /min No Primary Care Physician [facility] 02-16-2025 19:34-0400 Respiratory rate 18 /min No Primary Care Physician [facility] 02-16-2025 19:34-0400 SaO2% (BldA) [Mass fraction] 96 % No Primary Care Physician [facility] 02-16-2025 19:34-0400 Systolic blood pressure 102 mm[Hg] No Primary Care Physician [facility] 02-16-2025 17:20-0400 Body height 175.26 cm No Primary Care Physician [facility] 02-13-2025 21:17-0400 Body temperature 98.8 [degF] No Primary Care Physician [facility] 02-13-2025 21:17-0400 Diastolic blood pressure 75 mm[Hg] No Primary Care Physician [facility] 02-13-2025 21:17-0400 Heart rate 59 /min No Primary Care Physician [facility] 02-13-2025 21:17-0400 Respiratory rate 16 /min No Primary Care Physician [facility] 02-13-2025 21:17-0400 SaO2% (BldA) [Mass fraction] 100 % No Primary Care Physician [facility] 02-13-2025 21:17-0400 Systolic blood pressure 97 mm[Hg] No Primary Care Physician [facility] 02-13-2025 16:30-0400 Body height 175.26 cm No Primary Care Physician [facility] 02-13-2025 16:30-0400 Body mass index (BMI) [Ratio] 33 kg/m2 No Primary Care Physician [facility] 02-13-2025 16:30-0400 Body weight 101.5 kg No Primary Care Physician [facility] 02-11-2025 12:35-0400 Diastolic blood pressure 55 mm[Hg] No Primary Care Physician [facility] 02-11-2025 12:35-0400 Heart rate 63 /min No Primary Care Physician [facility] 02-11-2025 12:35-0400 Respiratory rate 18 /min No Primary Care Physician [facility] 02-11-2025 12:35-0400 Systolic blood pressure 85 mm[Hg] No Primary Care Physician [facility] 02-11-2025 12:33-0400 Body temperature 97.3 [degF] No Primary Care Physician [facility] 02-08-2025 01:26-0400 Body temperature 97.6 [degF] No Primary Care Physician [facility] 02-08-2025 01:26-0400 Diastolic blood pressure 63 mm[Hg] No Primary Care Physician [facility] 02-08-2025 01:26-0400 Heart rate 62 /min No Primary Care Physician [facility] 02-08-2025 01:26-0400 Respiratory rate 18 /min No Primary Care Physician [facility] 02-08-2025 01:26-0400 SaO2% (BldA) [Mass fraction] 100 % No Primary Care Physician [facility] 02-08-2025 01:26-0400 Systolic blood pressure 97 mm[Hg] No Primary Care Physician [facility] 02-07-2025 22:20-0400 Body mass index (BMI) [Ratio] 34.8 kg/m2 No Primary Care Physician [facility] 02-07-2025 22:20-0400 Body weight 107.1 kg No Primary Care Physician [facility] 02-07-2025 19:24-0400 Body height 175.26 cm No Primary Care Physician [facility] 01-31-2025 18:35-0400 Body temperature 98.1 [degF] No Primary Care Physician [facility] 01-31-2025 18:35-0400 Diastolic blood pressure 86 mm[Hg] No Primary Care Physician [facility] 01-31-2025 18:35-0400 Heart rate 100 /min No Primary Care Physician [facility] 01-31-2025 18:35-0400 Respiratory rate 16 /min No Primary Care Physician [facility] 01-31-2025 18:35-0400 SaO2% (BldA) [Mass fraction] 100 % No Primary Care Physician [facility] 01-31-2025 18:35-0400 Systolic blood pressure 127 mm[Hg] No Primary Care Physician [facility] 01-31-2025 09:49-0400 Body height 182.88 cm No Primary Care Physician [facility] 01-31-2025 09:49-0400 Body weight 110.3 kg No Primary Care Physician [facility] 01-28-2025 09:46-0400 Body mass index (BMI) [Ratio] 33 kg/m2 No Primary Care Physician [facility] 01-28-2025 09:00-0400 Body temperature 98 [degF] No Primary Care Physician [facility] 01-28-2025 09:00-0400 Diastolic blood pressure 67 mm[Hg] No Primary Care Physician [facility] 01-28-2025 09:00-0400 Heart rate 106 /min No Primary Care Physician [facility] 01-28-2025 09:00-0400 Respiratory rate 15 /min No Primary Care Physician [facility] 01-28-2025 09:00-0400 SaO2% (BldA) [Mass fraction] 100 % No Primary Care Physician [facility] 01-28-2025 09:00-0400 Systolic blood pressure 125 mm[Hg] No Primary Care Physician [facility] 01-28-2025 02:56-0400 Body height 187.96 cm No Primary Care Physician [facility] 01-28-2025 02:56-0400 Body mass index (BMI) [Ratio] 31.7 kg/m2 No Primary Care Physician [facility] 01-28-2025 02:56-0400 Body weight 112.2 kg No Primary Care Physician [facility] 01-21-2025 13:00-0400 Body temperature 97.7 [degF] No Primary Care Physician [facility] 01-21-2025 13:00-0400 Diastolic blood pressure 60 mm[Hg] No Primary Care Physician [facility] 01-21-2025 13:00-0400 Heart rate 91 /min No Primary Care Physician [facility] 01-21-2025 13:00-0400 Respiratory rate 18 /min No Primary Care Physician [facility] 01-21-2025 13:00-0400 SaO2% (BldA) [Mass fraction] 97 % No Primary Care Physician [facility] 01-21-2025 13:00-0400 Systolic blood pressure 100 mm[Hg] No Primary Care Physician [facility] 01-21-2025 05:13-0400 Body mass index (BMI) [Ratio] 35.8 kg/m2 No Primary Care Physician [facility] 01-21-2025 05:13-0400 Body weight 110.1 kg No Primary Care Physician [facility] 01-17-2025 14:51-0400 Body height 175.26 cm No Primary Care Physician [facility] 01-09-2025 14:01-0400 Heart rate 69 /min No Primary Care Physician [facility] 01-09-2025 14:01-0400 Respiratory rate 16 /min No Primary Care Physician [facility] 01-09-2025 14:01-0400 SaO2% (BldA) [Mass fraction] 100 % No Primary Care Physician [facility] 01-09-2025 14:00-0400 Diastolic blood pressure 59 mm[Hg] No Primary Care Physician [facility] 01-09-2025 14:00-0400 Systolic blood pressure 107 mm[Hg] No Primary Care Physician [facility] 01-09-2025 13:04-0400 Body temperature 98 [degF] No Primary Care Physician [facility] 01-09-2025 10:10-0400 Body height 175.26 cm No Primary Care Physician [facility] 01-09-2025 10:10-0400 Body mass index (BMI) [Ratio] 29.5 kg/m2 No Primary Care Physician [facility] 01-09-2025 10:10-0400 Body weight 90.6 kg No Primary Care Physician [facility] 01-05-2025 16:00-0400 Body temperature 98.1 [degF] No Primary Care Physician [facility] 01-05-2025 16:00-0400 Diastolic blood pressure 60 mm[Hg] No Primary Care Physician [facility] 01-05-2025 16:00-0400 Heart rate 73 /min No Primary Care Physician [facility] 01-05-2025 16:00-0400 Respiratory rate 16 /min No Primary Care Physician [facility] 01-05-2025 16:00-0400 SaO2% (BldA) [Mass fraction] 94 % No Primary Care Physician [facility] 01-05-2025 16:00-0400 Systolic blood pressure 103 mm[Hg] No Primary Care Physician [facility] 01-05-2025 04:44-0400 Body mass index (BMI) [Ratio] 29.9 kg/m2 No Primary Care Physician [facility] 01-05-2025 04:44-0400 Body weight 92.2 kg No Primary Care Physician [facility] 01-02-2025 10:11-0400 Body height 175.26 cm No Primary Care Physician [facility] 01-02-2025 06:34-0400 Body temperature 97.8 [degF] No Primary Care Physician [facility] 01-02-2025 06:34-0400 Diastolic blood pressure 73 mm[Hg] No Primary Care Physician [facility] 01-02-2025 06:34-0400 Heart rate 68 /min No Primary Care Physician [facility] 01-02-2025 06:34-0400 Respiratory rate 20 /min No Primary Care Physician [facility] 01-02-2025 06:34-0400 SaO2% (BldA) [Mass fraction] 100 % No Primary Care Physician [facility] 01-02-2025 06:34-0400 Systolic blood pressure 105 mm[Hg] No Primary Care Physician [facility] 01-02-2025 02:59-0400 Body height 175.26 cm No Primary Care Physician [facility] 01-02-2025 02:59-0400 Body mass index (BMI) [Ratio] 27.5 kg/m2 No Primary Care Physician [facility] 01-02-2025 02:59-0400 Body weight 84.5 kg No Primary Care Physician [facility] 12-30-2024 05:24-0400 Body temperature 97.9 [degF] No Primary Care Physician [facility] 12-30-2024 05:24-0400 Diastolic blood pressure 52 mm[Hg] No Primary Care Physician [facility] 12-30-2024 05:24-0400 Heart rate 71 /min No Primary Care Physician [facility] 12-30-2024 05:24-0400 Respiratory rate 18 /min No Primary Care Physician [facility] 12-30-2024 05:24-0400 SaO2% (BldA) [Mass fraction] 93 % No Primary Care Physician [facility] 12-30-2024 05:24-0400 Systolic blood pressure 93 mm[Hg] No Primary Care Physician [facility] 12-30-2024 01:07-0400 Body height 175.26 cm No Primary Care Physician [facility] 12-30-2024 01:07-0400 Body mass index (BMI) [Ratio] 28.4 kg/m2 No Primary Care Physician [facility] 12-30-2024 01:07-0400 Body weight 87.3 kg No Primary Care Physician [facility] 12-26-2024 14:27-0400 Body temperature 97 [degF] No Primary Care Physician [facility] 12-26-2024 14:27-0400 Diastolic blood pressure 58 mm[Hg] No Primary Care Physician [facility] 12-26-2024 14:27-0400 Heart rate 64 /min No Primary Care Physician [facility] 12-26-2024 14:27-0400 Respiratory rate 16 /min No Primary Care Physician [facility] 12-26-2024 14:27-0400 SaO2% (BldA) [Mass fraction] 97 % No Primary Care Physician [facility] 12-26-2024 14:27-0400 Systolic blood pressure 90 mm[Hg] No Primary Care Physician [facility] 12-26-2024 10:00-0400 Body height 175.26 cm No Primary Care Physician [facility] 12-26-2024 10:00-0400 Body mass index (BMI) [Ratio] 29.7 kg/m2 No Primary Care Physician [facility] 12-26-2024 10:00-0400 Body weight 91.4 kg No Primary Care Physician [facility] 12-02-2024 12:13-0400 Body temperature 98.7 [degF] No Primary Care Physician [facility] 12-02-2024 12:13-0400 Diastolic blood pressure 68 mm[Hg] No Primary Care Physician [facility] 12-02-2024 12:13-0400 Heart rate 86 /min No Primary Care Physician [facility] 12-02-2024 12:13-0400 Respiratory rate 18 /min No Primary Care Physician [facility] 12-02-2024 12:13-0400 SaO2% (BldA) [Mass fraction] 97 % No Primary Care Physician [facility] 12-02-2024 12:13-0400 Systolic blood pressure 117 mm[Hg] No Primary Care Physician [facility] 12-02-2024 02:57-0400 Body mass index (BMI) [Ratio] 33 kg/m2 No Primary Care Physician [facility] 12-02-2024 02:57-0400 Body weight 101.6 kg No Primary Care Physician [facility] 11-29-2024 09:53-0400 Body height 175.26 cm No Primary Care Physician [facility] 11-25-2024 18:31-0400 Body temperature 98.2 [degF] No Primary Care Physician [facility] 11-25-2024 18:31-0400 Diastolic blood pressure 80 mm[Hg] No Primary Care Physician [facility] 11-25-2024 18:31-0400 Heart rate 97 /min No Primary Care Physician [facility] 11-25-2024 18:31-0400 Respiratory rate 18 /min No Primary Care Physician [facility] 11-25-2024 18:31-0400 SaO2% (BldA) [Mass fraction] 98 % No Primary Care Physician [facility] 11-25-2024 18:31-0400 Systolic blood pressure 122 mm[Hg] No Primary Care Physician [facility] 11-24-2024 15:17-0400 Body weight 102.7 kg No Primary Care Physician [facility] 11-21-2024 05:32-0400 Body mass index (BMI) [Ratio] 33.4 kg/m2 No Primary Care Physician [facility] 11-21-2024 05:00-0400 Heart rate 77 /min No Primary Care Physician [facility] 11-21-2024 04:51-0400 Body temperature 98.2 [degF] No Primary Care Physician [facility] 11-21-2024 04:51-0400 Diastolic blood pressure 57 mm[Hg] No Primary Care Physician [facility] 11-21-2024 04:51-0400 Respiratory rate 16 /min No Primary Care Physician [facility] 11-21-2024 04:51-0400 SaO2% (BldA) [Mass fraction] 97 % No Primary Care Physician [facility] 11-21-2024 04:51-0400 Systolic blood pressure 127 mm[Hg] No Primary Care Physician [facility] 11-21-2024 01:32-0400 Body height 175.26 cm No Primary Care Physician [facility] 11-21-2024 01:32-0400 Body mass index (BMI) [Ratio] 34.3 kg/m2 No Primary Care Physician [facility] 11-21-2024 01:32-0400 Body weight 105.4 kg No Primary Care Physician [facility] 11-12-2024 18:03-0400 SaO2% (BldA) [Mass fraction] 99 % KATHIE POWERS [facility] Comment on above: Order Comment: Specimen Type: ARTERIAL B LOOD SPECIMENOrdering Facility: [facility] Address: [address] [place] [id number] Performed By: #### A LLBG ####[facility] LABCLIA [id number] [address] [address] [place] 11-10-2024 23:40-0400 Body temperature 97.8 [degF] No Primary Care Physician [facility] 11-10-2024 23:40-0400 Diastolic blood pressure 70 mm[Hg] No Primary Care Physician [facility] 11-10-2024 23:40-0400 Heart rate 110 /min No Primary Care Physician [facility] 11-10-2024 23:40-0400 Respiratory rate 18 /min No Primary Care Physician [facility] 11-10-2024 23:40-0400 SaO2% (BldA) [Mass fraction] 97 % No Primary Care Physician [facility] 11-10-2024 23:40-0400 Systolic blood pressure 116 mm[Hg] No Primary Care Physician [facility] 11-10-2024 04:54-0400 Body mass index (BMI) [Ratio] 36.7 kg/m2 No Primary Care Physician [facility] 11-10-2024 04:54-0400 Body weight 112.8 kg No Primary Care Physician [facility] 11-09-2024 14:30-0400 Body height 175.26 cm No Primary Care Physician [facility] 10-29-2024 01:23-0400 Body temperature 97.4 [degF] No Primary Care Physician [facility] 10-29-2024 01:23-0400 Diastolic blood pressure 54 mm[Hg] No Primary Care Physician [facility] 10-29-2024 01:23-0400 Heart rate 77 /min No Primary Care Physician [facility] 10-29-2024 01:23-0400 Respiratory rate 14 /min No Primary Care Physician [facility] 10-29-2024 01:23-0400 SaO2% (BldA) [Mass fraction] 97 % No Primary Care Physician [facility] 10-29-2024 01:23-0400 Systolic blood pressure 97 mm[Hg] No Primary Care Physician [facility] 10-28-2024 21:43-0400 Body mass index (BMI) [Ratio] 30.4 kg/m2 No Primary Care Physician [facility] 10-28-2024 21:43-0400 Body weight 93.1 kg No Primary Care Physician [facility] 10-28-2024 17:13-0400 Body height 175.01 cm No Primary Care Physician [facility] 10-04-2024 21:45-0500 Diastolic blood pressure 89 mm[Hg] Maurice wen MD Work Phone: [facility] 10-04-2024 21:45-0500 Heart rate 94 /min Maurice Rincon MD Work Phone: [facility] 10-04-2024 21:45-0500 Respiratory rate 18 /min Maurice Rincon MD Work Phone: [facility] 10-04-2024 21:45-0500 SaO2% (BldA) [Mass fraction] 100 % Maurice Rincon MD Work Phone: [facility] 10-04-2024 21:45-0500 Systolic blood pressure 152 mm[Hg] Maurice parada MD Work Phone: [facility] 10-04-2024 12:03-0500 Body temperature 97.59 [degF] Maurice Rincon MD Work Phone: [facility] 10-04-2024 12:03-0500 Body weight 117.48 kg Maurice Rincon MD Work Phone: [facility] 09-29-2024 10:21-0500 Body temperature 97.3 [degF] No Primary Care Physician [facility] 09-29-2024 10:21-0500 Diastolic blood pressure 74 mm[Hg] No Primary Care Physician [facility] 09-29-2024 10:21-0500 Heart rate 81 /min No Primary Care Physician [facility] 09-29-2024 10:21-0500 Respiratory rate 18 /min No Primary Care Physician [facility] 09-29-2024 10:21-0500 Systolic blood pressure 138 mm[Hg] No Primary Care Physician [facility] 09-15-2024 03:49-0500 Body temperature 97.8 [degF] No Primary Care Physician [facility] 09-15-2024 03:49-0500 Diastolic blood pressure 70 mm[Hg] No Primary Care Physician [facility] 09-15-2024 03:49-0500 Heart rate 80 /min No Primary Care Physician [facility] 09-15-2024 03:49-0500 Respiratory rate 17 /min No Primary Care Physician [facility] 09-15-2024 03:49-0500 SaO2% (BldA) [Mass fraction] 96 % No Primary Care Physician [facility] 09-15-2024 03:49-0500 Systolic blood pressure 142 mm[Hg] No Primary Care Physician [facility] 09-14-2024 04:07-0500 Body mass index (BMI) [Ratio] 36.7 kg/m2 No Primary Care Physician [facility] 09-14-2024 04:07-0500 Body weight 112.8 kg No Primary Care Physician [facility] 09-10-2024 14:03-0500 Body height 175.26 cm No Primary Care Physician [facility] 09-07-2024 01:24-0500 Inhaled oxygen concentration 21 % No Primary Care Physician [facility] 09-06-2024 05:00-0500 Inhaled oxygen flow rate 8 L/min No Primary Care Physician [facility] 09-02-2024 15:36-0500 Body weight 104 kg No Primary Care Physician [facility] 09-02-2024 14:54-0500 Body temperature 98.1 [degF] No Primary Care Physician [facility] 09-02-2024 14:54-0500 Diastolic blood pressure 62 mm[Hg] No Primary Care Physician [facility] 09-02-2024 14:54-0500 Heart rate 60 /min No Primary Care Physician [facility] 09-02-2024 14:54-0500 Respiratory rate 18 /min No Primary Care Physician [facility] 09-02-2024 14:54-0500 SaO2% (BldA) [Mass fraction] 99 % No Primary Care Physician [facility] 09-02-2024 14:54-0500 Systolic blood pressure 118 mm[Hg] No Primary Care Physician [facility] 09-02-2024 03:57-0500 Body mass index (BMI) [Ratio] 33.8 kg/m2 No Primary Care Physician [facility] 08-21-2024 16:33-0500 Body temperature 98.5 [degF] No Primary Care Physician [facility] 08-21-2024 16:33-0500 Diastolic blood pressure 78 mm[Hg] No Primary Care Physician [facility] 08-21-2024 16:33-0500 Heart rate 61 /min No Primary Care Physician [facility] 08-21-2024 16:33-0500 Respiratory rate 12 /min No Primary Care Physician [facility] 08-21-2024 16:33-0500 SaO2% (BldA) [Mass fraction] 97 % No Primary Care Physician [facility] 08-21-2024 16:33-0500 Systolic blood pressure 114 mm[Hg] No Primary Care Physician [facility] 08-21-2024 13:52-0500 Body mass index (BMI) [Ratio] 33 kg/m2 No Primary Care Physician [facility] 08-21-2024 13:52-0500 Body weight 101.5 kg No Primary Care Physician [facility] Encounters Encounter Date Encounter Type Care Provider Facility Start: 04-18-2025 ambulatory [facility] [place] Start: 04-18-2025 End: 04-20-2025 Evaluation and management of inpatient [facility] Facility:[facility] Start: 04-10-2025 Dr. Anurag Irene MD -[facility] Work Phone: Start: 04-09-2025 Dr. Anurag Irene MD [facility] Work Phone: Start: 04-08-2025 Dr. Maria Guadalupe Shore MD - [facility] Work Phone: Start: 04-07-2025 Evaluation and manag ement of inpatient [facility] Work Phone: -Medical Surgical 3 Start: 04-07-2025 Dr. Maria Guadalupe Shore MD - [facility] 3 Work Phone: Start: 04-07-2025 End: 04-10-2025 Evaluation and management of inpatient [facility] Work Phone: -Medical Surgical 3 Start: 04-07-2025 ambulatory [facility] Facility :[facility] Start: 04-07-2025 End: 04-10-2025 Dr. Maria Guadalupe Shore MD -[facility] Work Phone: Start: 04-03-2025 End: 04-03-2025 Josy [facility] Work Phone: -Emergency Department Work Phone: Start: 04-03-2025 End: 04-03-2025 Emergency department patient visit [facility] Facility:[facility] Start: 03-30-2025 End: 03-30-2025 Dr. Roby Balderas MD -[facility] Start: 03-30-2025 End: 03-30-2025 ambulatory [facility] Facility[facility] Start: 03-25-[facility] Start: 03-16-2025 ambulatory Nelida Harris [facility] ty:[facility] Start: 03-11-2025 End: 03-11-2025 No Primary Care Physician -Emergency Department Work Phone: Start: 03-11-2025 End: 03-11-2025 Emergency department patient visit No Primary Care Physician -Emergency Department Start: 03-10-2025 End: 03-10-2025 Dr. Roby Balderas MD -[facility] Work Phone: Start: 03-10-2025 End: 03-10-2025 ambulatory [place]y Balderas [place] Start: 03-04-2025 End: 03-04-2025 No Primary Care Physician -Ultrasound [facility] Work Phone: Start: 03-04-2025 End: 03-04-2025 ambulatory [facility] Facility:[facility] Start: 02-27-2025 Dr. Rick gutierrez DO -[facility] Work Phone: Start: 02-26-2025 Dr. Rick gutierrez DO -[facility] Work Phone: Start: 02-25-2025 Niranjan Li DO -[facility] Start: 02-25-2025 End: 02-27-2025 ambulatory Kathie Powers [facility] [facility] Start: 02-25-2025 End: 02-27-2025 Dr. Rick Carlin DO -Progressive Care Unit Work Phone: Start: 02-24-2025 End: 02-25-2025 Jasonashley Glover -[facility] Work Phone: Start: 02-24-2025 End: 02-25-2025 ambulatory Josy Elias Facility:[facility] Start: 02-17-2025 Niranjan Jen DO -[facility] Start: 02-17-2025 Dr. Anurag Irene MD -[facility] Inpatient Physicians Work Phone: Start: 02-16-2025 End: 02-17-2025 ambulatory Jae Ash Facility:[facility] Start: 02-16-2025 Evaluation and manag ement of inpatient No Primary Care Physician -Medical Surgical 3 Start: 02-16-2025 End: 02-17-2025 Dr. Jae Ash DO -Medical Surgical 3 Work Phone: Start: 02-16-2025 End: 02-16-2025 Dr. Jerald Sherwood MD -[facility] Start: 02-16-2025 End: 02-16-2025 ambulatory Jerald Sherwood Facility:[facility] Start: 02-14-2025 ambulatory NONE PHYSICIAN Facility :[facility] Start: 02-13-2025 End: 02-13-2025 No Primary Care Physician -Emergency Department Work Phone: Start: 02-13-2025 End: 02-13-2025 Emergency department patient visit No Primary Care Physician -Emergency Department Start: 02-11-2025 End: 02-11-2025 ambulatory No Primary Care Physician -Ultrasound [facility] Start: 02-11-2025 End: 02-11-2025 Mina Blood DO -Ultrasound [facility] Work Phone: Start: 02-11-2025 End: 02-11-2025 ambulatory Mina Blood Facility:[facility] Start: 02-07-2025 End: 02-08-2025 No Primary Care Physician -Emergency Department Work Phone: Start: 02-07-2025 End: 02-08-2025 Emergency department patient visit No Primary Care Physician -Emergency Department Start: 01-31-2025 Dr. Yaritza Leo [facility] Inpatient Physicians Work Phone: Start: 01-30-2025 Dr. Yaritza Leo [facility] In[facility] Work Phone: Start: 01-29-2025 Dr. Yaritza Leo [facility] In[facility] Work Phone: Start: 01-28-2025 ambulatory [facility] Facility:[facility] Start: 01-28-2025 End: 01-31-2025 Evaluation and management of inpatient No Primary Care Physician [facility] Work Phone: Start: 01-28-2025 End: 01-31-2025 Dr. Boone Izquierdo [facility] Inpatient Physicians Work Phone: Start: 01-21-2025 Dr. Anurag Irene MD [facility] Inpatient Physicians Work Phone: Start: 01-20-2025 Dr. Anurag Irene MD [facility] Work Phone: Start: 01-19-2025 Dr. Anurag Irene MD [facility] Work Phone: Start: 01-18-2025 Dr. Anurag Irene MD [facility] Work Phone: Start: 01-17-2025 Dr. Anurag Irene MD [facility] Work Phone: Start: 01-16-2025 Dr. Cielo Tovar MD [facility] Inpatient Physicians Work Phone: Start: 01-15-2025 Dr. Cielo Tovar MD [facility] In[facility] Work Phone: Start: 01-14-2025 Dr. Cielo Tovar MD [facility] In[facility] Work Phone: Start: 01-13-2025 Dr. Cielo Tovar MD - [facility] Work Phone: Start: 01-12-2025 Dr. Cielo Tovar MD - [facility] Work Phone: Start: 01-11-2025 Dr. Jefferson Malave MD - [facility] Start: 01-11-2025 Dr. Cielo Tovar MD - [facility] Work Phone: Start: 01-11-2025 Dr. Bola Meraz DO -[facility] -PM Start: 01-10-2025 Dr. Cielo Tovar MD - [facility] [facility] Work Phone: Start: 01-09-2025 ambulatory Cielo Tovar Facility :[facility] Start: 01-09-2025 End: 01-21-2025 Evaluation and management of inpatient No Primary Care Physician [facility] Work Phone: Start: 01-09-2025 End: 01-21-2025 Dr. Yaritza Leo DO -Intensive Care Unit Work Phone: Start: 01-05-2025 Dr. Hill Acuña MD - [facility] Work Phone: Start: 01-04-2025 Dr. Hill Acuña MD - [facility] Work Phone: Start: 01-03-2025 Dr. Hill Acuña MD - [facility] Work Phone: Start: 01-02-2025 ambulatory Buster Fuchs [facility] ility:[facility] Start: 01-02-2025 End: 01-05-2025 Evaluation and management of inpatient No Primary Care Physician [facility] Work Phone: Start: 01-02-2025 End: 01-05-2025 Dr. Buster Fuchs MD -Progressive Care Unit Work Phone: Start: 12-30-2024 End: 12-30-2024 No Primary Care Physician -Emergency Department Work Phone: Start: 12-30-2024 End: 12-30-2024 Emergency department patient visit No Primary Care Physician [facility] Work Phone: Start: 12-26-2024 End: 12-26-2024 No Primary Care Physician -Emergency Department Work Phone: Start: 12-26-2024 End: 12-26-2024 Emergency department patient visit No Primary Care Physician [facility] Work Phone: Start: 12-15-2024 End: 12-15-2024 ambulatory No Primary Care Physician [facility] Work Phone: Start: 12-15-2024 End: 12-15-2024 Josy Elias ALTERATION SPECIALIST-C -Ultrasound [facility] Work Phone: Start: 12-15-2024 End: 12-15-2024 ambulatory Josy Elias Facility:[facility] Start: 12-07-2024 End: 12-10-2024 ambulatory Eva Pichardo MD Work Phone: Urology Start: 12-07-2024 End: 12-07-2024 Josy Elias NP-C -Laboratory, [facility] Start: 12-07-2024 End: 12-07-2024 ambulatory [facility] Facility:[facility] Start: 12-02-2024 Dr. Hill Acuña MD - [facility] Work Phone: Start: 12-01-2024 Dr. Hill Acuña MD - [facility] Work Phone: Start: 11-30-2024 Dr. Hill Acuña MD - [facility] Work Phone: Start: 11-29-2024 Dr. Hill Acuña MD - [facility] Work Phone: Start: 11-28-2024 ambulatory Kathie Powers Facility:[facility] Start: 11-28-2024 End: 12-02-2024 Evaluation and management of inpatient Kathie Powers Facility:[facility] Start: 11-28-2024 End: 12-02-2024 Dr. Hill Acuña MD -Progressive Care Unit Work Phone: Start: 11-25-2024 Dr. Anurag Irene MD -[facility] Inpatient Physicians Work Phone: Start: 11-24-2024 Dr. Anurag Irene MD -[facility] Work Phone: Start: 11-23-2024 ambulatory Jae Ash Fac ility:[facility] Start: 11-23-2024 End: 11-25-2024 Evaluation and management of inpatient Jae Ash Facility:[facility] Start: 11-23-2024 End: 11-25-2024 Dr. Anurag Irene MD -Medical Surgical 3 Work Phone: Start: 11-22-2024 Dr. Anurag Irene MD -[facility] In[facility] Work Phone: Start: 11-21-2024 ambulatory Jae Nilsa Fac ility:[facility] Start: 11-21-2024 observation encounter No Prima Care Physician [facility] Work Phone: Start: 11-21-2024 Dr. Jae Ash DO -Medical Surgical 3 Work Phone: Start: 11-18-2024 Patient encounter status Jeremi Abreu RN Work Phone: [facility] Work Phone: Start: 11-18-2024 End: 11-18-2024 Telephone encounter Jeremi Abreu RN Work Phone: [facility] Center Comment on above: Outcome Liver Transp lant Selection Committee Start: 11-15-2024 End: 11-15-2024 Evaluation and management of inpatient Izabela Castellanosn DDS Work Phone: Dentistry Comment on above: Liver transplant can didate (Primary Dx); Pre-operative clearance Start: 11-15-2024 End: 11-15-2024 Preoperative state Izabela Estuardo Candice DDS Work Phone: [facility] Start: 11-15-2024 End: 11-15-2024 Social Work Marah Arauz PEDIATRIC CARE COORDINATOR Work Phone: Transplant Center Start: 11-12-2024 End: 11-12-2024 Patient encounter [facility] Start: 11-12-2024 End: 11-12-2024 Orders Only Liver Txp Coordinator Work Phone: Transplant Center Comment on above: 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 Kathie Powers MD -Wo [...] Work Phone: Start: 11-01-2024 Niranjan Li DO -[facility] Start: 10-31-2024 Dr. Buster Fuchs MD -[place] [facility] Work Phone: Start: 10-30-2024 Niranjan Li DO -[facility] Start: 10-30-2024 Dr. Buster Fuchs MD -[place] [facility] Work Phone: Start: 10-29-2024 Dr. Bola Meraz DO -[facility] -[facility] Start: 10-29-2024 ambulatory Kathie Rutland Facility:[facility] Start: 10-29-2024 End: 11-11-2024 Evaluation and management of inpatient Dr. Hill Caro DO -Intensive Care Unit Work Phone: Start: 10-29-2024 End: 11-11-2024 Dr. Kathie Powers MD -Progressive Care Unit Work Phone: Start: 10-19-2024 ambulatory [facility] Facility:[facility] Start: 10-04-2024 End: 10-04-2024 Emergency department patient visit MAURICE RINCON [facility] Emergency Medicine Comment on above: Other ascites (Prima ry Dx); Abdominal pain, generalized; Other cirrhosis of liver; Peripheral edema; Coagulopathy (Multi); Hyperbilirubinemia; Cirrhosis of liver with ascites, unspecified hepatic cirrhosis type (Multi) Start: 09-29-2024 ambulatory [facility] Facility[facility] Start: 09-29-2024 Non-patient / Non-visit Jasmine nunez ALTERATION SPECIALIST-C -[facility] Start: 09-29-2024 Jasmine Morocho NP-C - [facility] Start: 09-29-2024 End: 09-29-2024 ambulatory No Primary Care Physician [facility] Work Phone: Start: 09-29-2024 End: 09-29-2024 Patient encounter procedure No Primary Care Physician -Ultrasound, [facility] Work Phone: Start: 09-29-2024 End: 09-29-2024 No Primary Care Physician -Ultrasound, [facility] Work Phone: Start: 09-29-2024 End: 09-29-2024 [facility] Facility:[facility] Start: 09-14-2024 Non-patient / Non-visit Dr. Boone James [facility] Inpatient Physicians Work Phone: Start: 09-14-2024 Dr. Boone Izquierdo [facility] Inpatient Physicians Work Phone: Start: 09-13-2024 Non-patient / Non-visit Dr. Boone James [facility] Inpatient Physicians Work Phone: Start: 09-13-2024 Dr. Boone Izquierdo [facility] Inpatient Physicians Work Phone: Start: 09-12-2024 Non-[facility] / [facility]: Start: 09-12[facility] Start: 09-11-2024 Non-patient / [facility] Work [facility]: Start: 09-11-2024 [facility]: Start: 09-10-2024 Non-patient / Non-visit Dr. Slaughter [facility] Inpatient Physicians Work Phone: Start: 09-10-2024 Dr. Jae Ash [facility] Inpatient Physicians Work Phone: Start: 09-09-2024 Non-patient / Non-visit Dr. Noonan [facility] Inpatient Physicians Work Phone: Start: 09-09-2024 Dr. Jae Ash [facility] Inpatient Physicians Work Phone: Start: 09-08-2024 Non-patient / Non-visit Dr. Anurag Irene MD -[place] [facility] Work Phone: Start: 09-08-2024 Dr. Anurag Irene MD [facility] Inpatient Physicians Work Phone: Start: 09-07-2024 Non-patient / Non-visit Dr. Anurag Irene MD [facility] Inpatient Physicians Work Phone: Start: 09-07-2024 Dr. Anurag Irene MD -[facility] Inpatient Physicians Work Phone: Start: 09-06-2024 Non-patient / Non-visit Dr. Anurag Irene MD [facility] Inpatient Physicians Work Phone: Start: 09-06-2024 Dr. Anurag Irene MD -[facility] Inpatient Physicians Work Phone: Start: 09-05-2024 ambulatory [facility] Facili ty:[facility] Start: 09-05-2024 End: 09-15-2024 Evaluation and management of inpatient Dr. Boone Izquierdo -Progressive Care Unit Work Phone: Start: 09-05-2024 End: 09-15-2024 Dr. Boone Izquierdo [facility] Care [facility] Work Phone: Start: 09-02-2024 Non-patient / Non-visit Dr. Lissette Carlin [facility] Inpatient Physicians Work Phone: Start: 09-02-2024 Dr. Rick gutierrez [facility] Inpatient Physicians Work Phone: Start: 09-01-2024 Non-patient / Non-visit Niranjan Frie nd DO -[facility] Start: 09-01-2024 Niranjan Friend DO -[facility] Start: 09-01-2024 Non-patient / Non-visit Dr. Lissette Carlin [facility] Inpatient Physicians Work Phone: Start: 09-01-2024 Dr. Rick gutierrez [facility] Inpatient Physicians Work Phone: Start: 08-31-2024 Non-patient / Non-visit Niranjan Frie nd DO -[facility] Start: 08-31-2024 Niranjan Friend DO -[facility] Start: 08-31-2024 Non-patient / Non-visit Dr. Lissette Carlin DO -[place] [facility] Work Phone: Start: 08-31-2024 Dr. Rick gutierrez [facility] Inpatient Physicians Work Phone: Start: 08-31-2024 Non-patient / Non-visit Dr. Bola Patiño own DO -[facility] Start: 08-31-2024 Dr. Bola Meraz DO -[facility] Start: 08-30-2024 Non-patient / Non-visit Niranjan Coles nd DO -[facility] Start: 08-30-2024 Niranjan Friend DO -[facility] Start: 08-30-2024 Non-patient / Non-visit Dr. Lissette Carlin [facility] Inpatient Physicians Work Phone: Start: 08-30-2024 Dr. Rick gutierrez [facility] Inpatient Physicians Work Phone: Start: 08-30-2024 Non-patient / Non-visit Dr. Bola Patiño own DO -[facility] Start: 08-30-2024 Dr. Bola Meraz DO -[facility] Start: 08-29-2024 ambulatory [facility] Start: 08-29-2024 End: 09-02-2024 Evaluation and management [...] rscp w/mnl difrntl wbc count Josy Elias ALTERATION SPECIALIST-[place] Work Phone: Start: 04-10-2025 Estimated creatinine clearance Josy Elias ALTERATION SPECIALIST-C Work Phone: Start: 04-10-2025 Mean corpuscular hem oglobin concentration determination Josy Elias ALTERATION SPECIALIST-C Work Phone: Start: 04-10-2025 Nucleated red blood cell count procedure Josy Elias ALTERATION SPECIALIST-C Work Phone: Start: 04-10-2025 Platelet mean volume determination Josy Elias ALTERATION SPECIALIST-C Work Phone: Start: 04-09-2025 Urine microscopy: red cells Josy Obrienf ALTERATION SPECIALIST-C Work Phone: Start: 04-09-2025 Urnls dip stick/tabl et reagent auto microscopy Josy Obrienf ALTERATION SPECIALIST-C Work Phone: Start: 04-07-2025 Urine microscopy: red cells Josy Obrienf ALTERATION SPECIALIST-C Work Phone: Start: 04-07-2025 Urnls dip stick/tabl et reagent auto microscopy Josy Elias ALTERATION SPECIALIST-C Work Phone: Start: 04-07-2025 Blood count smear mc rscp w/mnl difrntl wbc count Josy Obrienf ALTERATION SPECIALIST-C Work Phone: Start: 04-07-2025 Mean corpuscular hem oglobin concentration determination Josy Elias ALTERATION SPECIALIST-C Work Phone: Start: 04-07-2025 Nucleated red blood cell count procedure Josy Obrienf ALTERATION SPECIALIST-C Work Phone: Start: 04-07-2025 Platelet mean volume determination Josy Elias ALTERATION SPECIALIST-C Work Phone: Start: 04-07-2025 Serum inorganic phos phate measurement Josy Obrienf ALTERATION SPECIALIST-C Work Phone: Start: 04-07-2025 Triacylglycerol lipa se measurement Josy Obrienf ALTERATION SPECIALIST-C Work Phone: Start: 04-07-2025 Nucleic acid assay Chinedu katia Elias ALTERATION SPECIALIST-C Work Phone: Start: 04-07-2025 Sars-cov-2 Josy Espitia nhof ALTERATION SPECIALIST-C Work Phone: Start: 04-07-2025 Urine culture Josy Langston nnhof ALTERATION SPECIALIST-C Work Phone: Start: 03-11-2025 Blood count smear [...] Physician Start: 11-28-2024 Assay of lactate No [facility] Care Physician Start: 11-28-2024 Urine [...] Start: 11-21-2024 Plain chest X-ray No [facility] Start: 11-18-2024 Antibody screen KATHIE LUCAS Comment on above: Order Comment: Speci men Type: BLOOD SPECIMENOrdering Facility: [facility] Address: [address] [place] [address] Performed By: #### T SCR ####CC MAIN BLOOD BANKCLIA [id number] [facility] [id number] [place] [address] [place] Start: 11-16-2024 End: 11-16-2024 Colonoscopy Jeremi Abreu RN Work Phone: Start: 11-15-2024 Antibody screen KATHIE LUCAS Comment on above: Order Comment: Speci men Type: BLOOD SPECIMENOrdering Facility: [facility] Address: [address] [place] [address] Performed By: #### T SCR ####CC MAIN BLOOD BANKCLIA [id number] [address] Start: 11-13-2024 Lipid 1996 panel - S sandie or Plasma Marah Arauz PEDIATRIC CARE COORDINATOR Work Phone: Start: 11-12-2024 Antibody screen KATHIE LUCAS Comment on above: Order Comment: Speci men Type: BLOOD SPECIMENOrdering Facility: [facility] Address: [address] [place] [address] Performed By: #### T SCR ####CC MAIN BLOOD BANKCLIA [id number] [address] Start: 11-10-2024 Urine microscopy: red cells [...] Start: 08-29-2024 Plain chest X-ray No [facility] Start: 08-29-2024 Triacylglycerol lipa se [...] DTaP,Tdap,Td Vaccine (2 - Td or Tdap) [facility] Start: 11-17-2029 Prostate specific antigen measurement Prostate Cancer Screening Discussion [facility] Start: 11-13-2029 Lipid panel Lipid Screening [facility] Start: 11-19-2027 Diabetes Screening Diabetes Screening [facility] Start: 11-17-2027 Diabetes Screening Diabetes Screening [facility] Start: 11-15-2027 Diabetes Screening Diabetes Screening [facility] Start: 11-13-2027 Diabetes Screening Diabetes Screening [facility] Start: 11-18-2025 Creatinine measurement Serum Creatinine [facility] Start: 11-16-2025 Creatinine measurement Serum Creatinine [facility] Start: 11-16-2025 Screening for malignant neoplasm of colon [facility] Start: 11-15-2025 Creatinine measurement Serum Creatinine [facility] Start: 11-12-2025 Creatinine measurement Serum Creatinine [facility] Start: 05-16-2025 Hepatitis A Vaccine (2 of 2 - Risk 2-dose series) Hepatitis A Vaccine (2 of 2 - Risk 2-dose series) [facility] Start: 04-10-2025 Patient discharge [facility] Start: 04-09-2025 Referral to service [facility] Start: 04-09-2025 [facility] Start: 04-09-2025 [facility] Start: 04-08-2025 Care planning and problem solving actions [facility] Start: 04-08-2025 Respiratory secretion precautions [facility] Start: 04-08-2025 Aspiration precautions [facility] Start: 04-08-2025 Assessment of risk of venous thromboembolism [facility] Start: 04-08-2025 Care regimes management [facility] Start: 04-08-2025 Fall prevention [facility] Start: 04-08-2025 Inhalation therapy procedure [facility] Start: 04-08-2025 Insertion of catheter into peripheral vein [facility] Start: 04-08-2025 Introduction of urinary catheter [facility] Start: 04-08-2025 Measuring intake and output [facility] Start: 04-08-[address] [facility] Start: 04-08-2025 Oxygen therapy [facility] Start: 04-08-2025 Providing care according to standard [facility] Start: 04-08-2025 Provision of activity privileges [facility] Start: 04-08-2025 Referral to occupational therapist [facility] Start: 04-08-2025 Referral to service [facility] Start: 04-07-2025 Following clinical pathway protocol [facility] Start: 04-07-2025 End: 04-08-2025 [facility] Start: 04-07-2025 Sars-cov-2 [facility] Start: 04-07-2025 Verification routine [facility] Start: 04-07-2025 Hospital admission, emergency, from emergency room, medical nature [facility] Start: 04-07-2025 Admission procedure [facility] Start: 04-07-2025 [facility] Start: 04-03-2025 [facility] Start: 03-30-2025 Anesthesia closed chest w/bronchoscopy nos [facility] Start: 03-30-2025 Insertion indwelling tunneled pleural catheter [facility] Start: 03-30-2025 Patient discharge [facility] Start: 03-11-2025 [facility] Start: 03-04-2025 Following clinical pathway protocol [facility] Start: 03-02-2025 End: 03-02-2025 Patient encounter procedure 03/02/2025 2:20 PM EDT Office Visit Family Medicine [address] [address] Alex Alexandre MD [address] [place] [address] Hospital discharge, diabetes mx, need for repeat vaccines, and consideration of CT chest [facility] [place] Comment on above: Hospital discharge, diabetes mx, need fo r repeat vaccines, and consideration of CT chest Start: 02-27-2025 Patient discharge [facility] Start: 02-26-2025 [facility] Start: 02-26-2025 Referral to occupational therapist [facility] Start: 02-26-2025 Referral to service [facility] Start: 02-25-2025 Following clinical pathway protocol [facility] Start: 02-25-2025 Assessment of risk of venous thromboembolism [facility] Start: 02-25-2025 Care regimes management [facility] Start: 02-25-2025 Inhalation therapy procedure [facility] Start: 02-25-2025 Insertion of catheter into peripheral vein [facility] Start: 02-25-2025 Measuring intake and output [facility] Start: 02-25-[address] [facility] Start: 02-25-2025 Providing care according to standard [facility] Start: 02-25-2025 Provision of activity privileges [facility] Start: 02-25-2025 Referral to gastroenterology service [facility] Start: 02-25-2025 Referral to service [facility] Start: 02-25-2025 End: 02-25-2025 [facility] Start: 02-25-2025 Admission procedure [facility] Start: 02-25-2025 Patient referral to dietitian [facility] Start: 02-17-2025 [facility] Start: 02-17-2025 Referral to service [facility] Start: 02-17-2025 Admission procedure [facility] Start: 02-17-2025 Referral to occupational therapist [facility] Start: 02-17-2025 Referral to service [facility] Start: 02-17-2025 Patient discharge [facility] Start: 02-16-2025 Application of intermittent pneumatic compression device [facility] Start: 02-16-2025 Ambulation without limitation [facility] Start: 02-16-2025 Assessment of risk of venous thromboembolism [facility] Start: 02-16-2025 Incentive spirometry [facility] Start: 02-16-2025 Insertion of catheter into peripheral vein [facility] Start: 02-16-2025 Measuring intake and output [facility] Start: 02-16-2025 Oxygen therapy [facility] Start: 02-16-2025 Providing care according to standard [facility] Start: 02-16-2025 Referral to gastroenterology service [facility] Start: 02-16-2025 Referral to service [facility] Start: 02-16-2025 [facility] Start: 02-16-2025 Care of central venous catheter [facility] Start: 02-16-2025 Following clinical pathway protocol [facility] Start: 02-16-2025 Prothrombin time [facility] Start: 02-16-2025 Hospital admission, emergency, from emergency room, medical nature [facility] Start: 02-16-2025 Verification routine [facility] Start: 02-16-2025 Admission procedure [facility] Start: 02-16-2025 Acute hepatitis panel [facility] Start: 02-16-2025 Assay of ammonia [facility] Start: 02-16-2025 Collection venous blood venipuncture [facility] Start: 02-16-2025 Patient referral to dietitian [facility] Start: 02-13-2025 [facility] Start: 02-13-2025 Assay of lipase [facility] Start: 02-13-2025 Blood count complete auto&auto difrntl wbc [facility] Start: 02-13-2025 Comprehensive metabolic panel [facility] Start: 02-13-2025 Ct abdomen & pelvis w/contrast material [facility] Start: 02-13-2025 Emergency dept visit high severity&threat funcj [facility] Start: 02-13-2025 Ther proph/dx njx iv push single/1st sbst/drug [facility] Start: 02-13-2025 Therapeutic injection iv push each new drug [facility] Start: 02-08-2025 Centesis [facility] Start: 02-08-2025 End: 02-08-2025 [facility] Start: 02-02-2025 End: 02-02-2025 Patient encounter procedure 02/02/2025 9:20 AM EDT Office Visit [facility] [place] [address] [place] [address] Ray Vega MD [address] [place] [address] est care [facility] [place] Comment on above: est care Start: 01-31-2025 Patient discharge [facility] Start: 01-31-2025 Referral to service [facility] Start: 01-31-2025 [facility] Start: 01-29-2025 [facility] Start: 01-28-2025 Blood culture [facility] Start: 01-28-2025 Application of intermittent pneumatic compression device [facility] Start: 01-28-2025 Following clinical pathway protocol [facility] Start: 01-28-2025 Assessment of risk of venous thromboembolism [facility] Start: 01-28-2025 Care regimes management [facility] Start: 01-28-2025 Documentation procedure [facility] Start: 01-28-2025 Insertion of catheter into peripheral vein [facility] Start: 01-28-[address] [facility] Start: 01-28-2025 Providing care according to standard [facility] Start: 01-28-2025 Provision of activity privileges [facility] Start: 01-28-2025 Referral to occupational therapist [facility] Start: 01-28-2025 Referral to service [facility] Start: 01-28-[address] [facility] Start: 01-28-2025 End: 01-28-2025 [facility] Start: 01-28-2025 Admission procedure [facility] Start: 01-28-2025 End: 01-28-2025 [facility] Start: 01-28-2025 End: 01-28-2025 [facility] Start: 01-28-2025 Patient referral to dietitian [facility] Start: 01-21-2025 Patient discharge [facility] Start: 01-18-2025 End: 01-18-2025 Microbial culture, body fluid [facility] Start: 01-18-2025 Care planning and problem solving actions [facility] Start: 01-18-2025 Anaerobic microbial culture [facility] Start: 01-17-2025 [facility] Start: 01-16-2025 [facility] Start: 01-15-2025 [facility] Start: 01-14-2025 Consultation for pain [facility] Start: 01-14-2025 [facility] Start: 01-13-2025 Administration of blood product [facility] Start: 01-13-2025 [facility] Start: 01-12-2025 [facility] Start: 01-11-2025 Application of intermittent pneumatic compression device [facility] Start: 01-11-2025 Referral to general surgeon [facility] Start: 01-11-2025 [facility] Start: 01-10-2025 Care planning and problem solving actions [facility] Start: 01-09-2025 Assessment of risk of venous thromboembolism [facility] Start: 01-09-2025 Cardiac monitoring [facility] Start: 01-09-2025 Catheterization of vein [facility] Start: 01-09-2025 Inhalation therapy procedure [facility] Start: 01-09-2025 Insertion of catheter into peripheral vein [facility] Start: 01-09-2025 Measuring intake and output [facility] Start: 01-09-[address] [facility] Start: 01-09-2025 Patient referral to dietitian [facility] Start: 01-09-2025 Providing care according to standard [facility] Start: 01-09-2025 Referral to occupational therapist [facility] Start: 01-09-2025 Referral to service [facility] Start: 01-09-2025 Vital signs measurements [facility] Start: 01-09-2025 [facility] Start: 01-09-2025 End: 01-09-2025 Following clinical pathway protocol [facility] Start: 01-09-2025 Bacterial nucleic acid assay [facility] Start: 01-09-2025 Verification routine [facility] Start: 01-09-2025 Admission procedure [facility] Start: 01-09-2025 Hospital admission, emergency, from emergency room, medical nature [facility] Start: 01-09-2025 End: 01-09-2025 [facility] Start: 01-09-2025 Consultation [facility] Start: 01-05-2025 Patient discharge [facility] Start: 01-04-2025 [facility] Start: 01-03-2025 End: 01-03-2025 [facility] Start: 01-03-2025 End: 01-03-2025 Care regimes management [facility] Start: 01-03-[address] [facility] Start: 01-03-2025 [facility] Start: 01-02-2025 Application of intermittent pneumatic compression device [facility] Start: 01-02-2025 Ambulation without limitation [facility] Start: 01-02-2025 Assessment of risk of venous thromboembolism [facility] Start: 01-02-2025 Care regimes management [facility] Start: 01-02-2025 Insertion of catheter into peripheral vein [facility] Start: 01-02-2025 Measuring intake and output [facility] Start: 01-02-[address] [facility] Start: 01-02-2025 Providing care according to standard [facility] Start: 01-02-2025 Referral to occupational therapist [facility] Start: 01-02-2025 Referral to service [facility] Start: 01-02-2025 End: 01-02-2025 [facility] Start: 01-02-2025 Admission procedure [facility] Start: 01-02-2025 Verification routine [facility] Start: 01-02-2025 Hospital admission, emergency, from emergency room, medical nature [facility] Start: 01-02-2025 End: 01-02-2025 [facility] Start: 01-02-2025 Consultation [facility] Start: 01-02-2025 Patient referral to dietitian [facility] Start: 12-30-2024 Assay of magnesium [facility] Start: 12-30-2024 Assay of troponin quantitative [facility] Start: 12-30-2024 Basic metabolic panel calcium total [facility] Start: 12-30-2024 Blood count complete auto&auto difrntl wbc [facility] Start: 12-30-2024 Culture bacterial quanttative colony count urine [facility] Start: 12-30-2024 Culture bct isol&prsmptv id isolate ea urine [facility] Start: 12-30-2024 Ecg routine ecg w/least 12 lds trcg only w/o i&r [facility] Start: 12-30-2024 Emergency department visit high/urgent severity [facility] Start: 12-30-2024 Gluc bld gluc mntr dev cleared fda spec home use [facility] Start: 12-30-2024 Iv infusion hydration each additional hour [facility] Start: 12-30-2024 Iv infusion therapy/prophylaxis /dx 1st to 1 hr [facility] Start: 12-30-2024 Radiologic exam chest 2 views [facility] Start: 12-30-2024 Urnls dip stick/tablet reagent auto microscopy [facility] Start: 12-30-2024 [facility] Start: 12-30-2024 End: 12-30-2024 [facility] Start: 12-29-2024 End: 12-29-2024 Patient encounter procedure Endocrinology Comment on above: Diabetes maangement Diabetes maangement/ LVM OF SOONER APPOINTMENT 11/21 Start: 12-26-2024 [facility] Start: 12-26-2024 End: 12-26-2024 [facility] Start: 12-23-2024 End: 12-23-2024 Patient encounter procedure 12/23/2024 9:45 AM EDT Office Visit Vascular Medicine [address] [place] [address] Pamella Frances, FOUR HORSE HITCH DRIVER.REHEATER HELPER [address] [id number] HOSPITAL FOLLOW UP [facility] Medicine Comment on above: HOSPITAL FOLLOW UP Start: 12-12-2024 Hepatitis B Vaccine (2 of 2 - CpG 2-dose series) Hepatitis B Vaccine (2 of 2 - CpG 2-dose series) [facility] Start: 12-07-2024 End: 12-07-2024 Patient encounter procedure 12/07/2024 3:45 PM EDT Office Visit Urology [address] [address] Eva Pichardo MD [address] [id number] L ureteral stent, s/p staghorn calculi Urology Comment on above: L ureteral stent, s/p staghorn calculi Start: 12-07-2024 End: 12-07-2024 Patient encounter procedure 12/07/2024 11:20 AM EDT Office Visit [facility] [address] [place] [address] Ksenia Hoyos, FOUR HORSE HITCH DRIVER.REHEATER HELPER [address] [place] [address] Hospital discharge, diabetes mx, need for repeat vaccines, and consideration of CT chest [facility] Comment on above: Hospital discharge, diabetes mx, need fo r repeat vaccines, and consideration of CT chest Start: 12-02-2024 Patient discharge [facility] Start: 12-01-2024 Consultation [facility] Start: 11-29-2024 [facility] Start: 11-28-2024 Enteric precautions [facility] Start: 11-28-2024 Application of intermittent pneumatic compression device [facility] Start: 11-28-2024 Following clinical pathway protocol [facility] Start: 11-28-2024 Assessment of risk of venous thromboembolism [facility] Start: 11-28-2024 Care regimes management [facility] Start: 11-28-2024 Insertion of catheter into peripheral vein [facility] Start: 11-28-2024 Measuring intake and output [facility] Start: 11-28-[address] [facility] Start: 11-28-2024 Providing care according to standard [facility] Start: 11-28-2024 Provision of activity privileges [facility] Start: 11-28-2024 Referral to occupational therapist [facility] Start: 11-28-2024 Referral to service [facility] Start: 11-28-2024 End: 11-28-2024 [facility] Start: 11-28-2024 Admission procedure [facility] Start: 11-28-2024 Inhalation therapy procedure [facility] Start: 11-28-2024 Patient referral to dietitian [facility] Start: 11-25-2024 Patient discharge [facility] Start: 11-24-2024 Administration of blood product [facility] Start: 11-23-2024 Admission procedure [facility] Start: 11-22-2024 [facility] Start: 11-21-2024 Care regimes management [facility] Start: 11-21-[address] [facility] Start: 11-21-2024 Following clinical pathway protocol [facility] Start: 11-21-2024 Ambulation without limitation [facility] Start: 11-21-2024 Assessment of risk of venous thromboembolism [facility] Start: 11-21-2024 Insertion of catheter into peripheral vein [facility] Start: 11-21-2024 Measuring intake and output [facility] Start: 11-21-2024 Providing care according to standard [facility] Start: 11-21-2024 Referral to occupational therapist [facility] Start: 11-21-2024 Referral to service [facility] Start: 11-21-2024 End: 11-21-2024 [facility] Start: 11-21-2024 Verification routine [facility] Start: 11-21-2024 Admission procedure [facility] Start: 11-21-2024 Hospital admission, emergency, from emergency room, medical nature [facility] Start: 11-21-2024 End: 11-21-2024 [facility] Start: 11-21-2024 Consultation [facility] Start: 11-18-2024 End: 11-18-2024 Patient encounter procedure 11/18/2024 3:30 PM EDT Office Visit Cardiology [address] [place] [address] [id number]; Liver Tx Evaluation; CONTACT PRECAUTIONS - C-Diff; last of the day Cardiology Comment on above: G; Liver Tx Evaluation; CONTACT PRECAUTIONS - C-Diff; last of the day Start: 11-17-2024 End: 11-17-2024 Patient encounter procedure Pulmonary Medicine Comment on above: C-diff precuations/RA-2L/Reg WC Start: 11-15-2024 End: 11-15-2024 Patient encounter procedure 11/15/2024 1:15 PM EDT Office Visit Dentistry [address] [address] Izabela Harvey, DDS [address] [id number] BEDSIDE - TRANSPLANT [facility] - [id number] - Consult Placed 11/12/24 Dentistry Comment on above: BEDSIDE - TRANSPLANT [place] - [id number] [phone] - Consult Placed 11/12/24 Start: 11-10-2024 Patient discharge [facility] Start: 11-09-2024 Consultation [facility] Start: 11-09-2024 Referral to gastroenterology service [facility] Start: 11-09-2024 Glucose measurement, body fluid [facility] Start: 11-08-2024 Urinary bladder residual urine study [facility] Start: 11-08-2024 [facility] Start: 11-05-2024 Removal of urinary catheter [facility] Start: 11-04-2024 [facility] Start: 10-31-2024 [facility] Start: 10-30-2024 Attention to flatus tube [facility] Start: 10-30-2024 Referral to gastroenterology service [facility] Start: 10-29-2024 Insertion of nasogastric tube [facility] Start: 10-29-2024 Bacteria identified in Blood by Culture Blood Culture [facility] Start: 10-29-2024 Referral to service [facility] Start: 10-29-2024 Application of intermittent pneumatic compression device [facility] Start: 10-29-2024 Following clinical pathway protocol [facility] Start: 10-29-2024 Cardiac monitoring [facility] Start: 10-29-2024 Catheterization of vein [facility] Start: 10-29-2024 Enteric precautions [facility] Start: 10-29-[address] [facility] Start: 10-29-2024 Vital signs measurements [facility] Start: 10-29-2024 [facility] Start: 10-29-2024 End: 10-29-2024 Consultation [facility] Start: 10-29-2024 Clostridioides difficile DNA [Presence] in Unspecified specimen by ANANTH with probe detection [facility] Start: 10-29-2024 Complete ultrasound of kidneys and bladder Kidney and Bladder [facility] Start: 10-29-2024 Lactoferrin [Presence] in Stool by Immunoassay [facility] Start: 10-29-2024 Nucleic acid assay [facility] Start: 10-29-2024 Admission procedure [facility] Start: 10-29-2024 End: 10-29-2024 Hospital admission, emergency, from emergency room, medical nature [facility] Start: 10-29-2024 End: 10-29-2024 [facility] Start: 10-29-2024 Patient referral to [facility] Start: 10-28-2024 [facility] Start: 10-28-2024 Bacteria identified in Urine by Culture Urine Culture [facility] Start: 09-14-2024 Patient discharge [facility] Start: 09-06-2024 Referral to service [facility] Start: 09-06-2024 Referral to occupational therapist [facility] Start: 09-06-2024 Referral to [employer] reverse winder [facility] Start: 09-06-2024 Consultation [facility] Start: 09-06-2024 Care planning and problem solving actions [facility] Start: 09-06-2024 [facility] Start: 09-05-2024 Application of intermittent pneumatic compression device [facility] Start: 09-05-2024 Continuous positive airway pressure ventilation treatment [facility] Start: 09-05-2024 Cardiac monitoring [facility] Start: 09-05-2024 Care regimes management [facility] Start: 09-05-2024 Catheterization of vein [facility] Start: 09-05-2024 Consultation [facility] Start: 09-05-[address] [facility] Start: 09-05-2024 Vital signs measurements [facility] Start: 09-05-2024 End: 09-05-2024 [facility] Start: 09-05-2024 Following clinical pathway protocol [facility] Start: 09-05-2024 Admission procedure [facility] Start: 09-05-2024 Patient referral to [facility] Start: 09-02-2024 Patient discharge [facility] Start: 08-31-2024 Care planning and problem solving actions [facility] Start: 08-30-2024 [facility] Start: 08-29-2024 Following clinical pathway protocol [facility] Start: 08-29-2024 Assessment of risk of venous thromboembolism [facility] Start: 08-29-2024 Care regimes management [facility] Start: 08-29-2024 Fall prevention [facility] Start: 08-29-2024 Inhalation therapy procedure [facility] Start: 08-29-2024 Insertion of catheter into peripheral vein [facility] Start: 08-29-2024 Measuring intake and output [facility] Start: 08-29-[address] [facility] Start: 08-29-2024 Patient referral to dietitian [facility] Start: 08-29-2024 Providing care according to standard [facility] Start: 08-29-2024 Provision of activity privileges [facility] Start: 08-29-2024 Referral to gastroenterology service [facility] Start: 08-29-2024 Referral to [employer] reverse winder [facility] Start: 08-29-2024 Referral to occupational therapist [facility] Start: 08-29-2024 Referral to service [facility] Start: 08-29-2024 Vital signs measurements [facility] Start: 08-29-2024 End: 08-29-2024 [facility] Start: 08-29-2024 Admission procedure [facility] Start: 08-21-2024 [facility] Start: 04-04-2024 COVID-19 Vaccine ( season) COVID-19 Vaccine ( season) [facility] Start: 04-04-2024 Influenza vaccination Influenza Vaccine (#1) [facility] Start: 2021 Prostate specific antigen measurement Prostate Cancer Screening Discussion [facility] Start: 2016 Zoster Vaccines (1 of 2) Zoster Vaccines (1 of 2) [facility] Start: 2011 Screening for malignant neoplasm of colon [facility] Start: 2001 Lipid panel Lipid Screening [facility] Start: 1988 DTaP/Tdap/Td Vaccines (1 - Tdap) DTaP/Tdap/Td Vaccines (1 - Tdap) [facility] Start: 1985 Hepatitis A Vaccine (1 of 2 - Risk 2-dose series) Hepatitis A Vaccine (1 of 2 - Risk 2-dose series) [facility] Start: 1985 Hepatitis A Vaccines (1 of 2 - Risk 2-dose series) Hepatitis A Vaccines (1 of 2 - Risk 2-dose series) [facility] Start: 1985 Hepatitis B Vaccine (1 of 3 - 19+ 3-dose series) Hepatitis B Vaccine (1 of 3 - 19+ 3-dose series) [facility] Start: 1985 Hepatitis B Vaccines (1 of 3 - 19+ 3-dose series) Hepatitis B Vaccines (1 of 3 - 19+ 3-dose series) [facility] Start: 1985 Pneumococcal vaccination Pneumococcal Vaccine (1 of 2 - PCV) [facility] Start: 1985 Pneumococcal Vaccine: 50+ (1 of 2 - PCV) Pneumococcal Vaccine: 50+ (1 of 2 - PCV) [facility] Start: 1985 Shingrix Vaccine (1 of 2) Shingrix Vaccine (1 of 2) [facility] Start: 1985 Urine microalbumin profile DTaP,Tdap,Td Vaccine (1 - Tdap) [facility] Start: 1984 Annual PCP Team Chronic Disease Visit Annual PCP Team Chronic Disease Visit [facility] Start: 1984 Anxiety Screening Anxiety Screening [facility] Start: 1984 Depression Screening Depression Screening [facility] Start: 1984 Hepatitis C screening Hepatitis C Screening [facility] Start: 1984 HIV screening HIV Screening [facility] Start: 1976 Glaucoma screening Diabetes: Retinopathy Screening [facility] Start: 1967 MMR Vaccines (1 of 1 - Standard series) MMR Vaccines (1 of 1 - Standard series) [facility] Start: 1966 Hemoglobin A1c measurement Diabetes: Hemoglobin A1C [facility] Start: 1966 HIV screening HIV Screening [facility] Start: 1966 Lipid panel Lipid Panel [facility] Start: 1966 Screening for malignant neoplasm of colon [facility] Start: 1966 Urine screening for protein Diabetes: Urine Protein Screening [facility] Start: 1966 Yearly Adult Physical Yearly Adult Physical [facility] Alanine aminotransfe rase [Enzymatic activity/volume] in Serum or Plasma [facility] End: 10-04-2024 Albumin [Mass/volume] in Body fluid [facility] Work Phone: Comment on above: Once (Lab) for 1 Occurrences starting until 10/04/2024 Once for 1 Occurrenc es starting 10/04/2024 until 10/04/2024 Albumin [Mass/volume ] in Serum or Plasma [facility] Alkaline phosphatase [Enzymatic activity/volume] in Serum or Plasma [facility] Anion gap in Serum o r Plasma [facility] End: 10-04-2024 Bacteria identified in Body fluid by Culture [facility] Work Phone: Comment on above: Once (Lab) for 1 Occurrences starting until 10/04/2024 Bilirubin, total measurement [facility] BUN/Creatinine ratio [facility] Calcium [Mass/volume ] in Serum or Plasma [facility] Carbon dioxide, tota l [Moles/volume] in Central venous blood [facility] CBC W Auto Different ial panel - Blood [facility] End: 10-04-2024 Clostridioides difficile toxin A+B tcdA+tcdB genes [Presence] in Stool by ANANTH with probe detection C. difficile, PCR Microbiology STAT STAT (Lab) for 1 Occurrences starting 10/04/2024 until 10/04/2024 [facility] Work Phone: Comment on above: STAT (Lab) for 1 Occurrences starting until 10/04/2024 Comprehensive metabo lic 2000 panel - Serum or Plasma [facility] Creatinine [Mass/vol ume] in Serum or Plasma [facility] Cytology report of B carmelina fluid Cyto stain [facility] Erythrocyte mean corpuscular volume determination [facility] End: 10-04-2024 Extra Urine Ot[place] Tube Extra Urine Toney Tube Lab Timed Once for 1 Occurrences starting 10/04/2024 until 10/04/2024 [facility] Work Phone: Comment on above: Once for 1 Occurrences starting 10/05/19 until 10/04/2024 End: 10-04-2024 Glucose [Mass/volume] in Body fluid [facility] Work Phone: Comment on above: Once (Lab) for 1 Occurrences starting until 10/04/2024 Once for 1 Occurrenc es starting 10/04/2024 until 10/04/2024 Glucose [Mass/volume ] in Serum or Plasma [facility] Glucose [Mass/volume ] in Serum or Plasma [facility] Hematocrit [Volume Fraction] of Blood [facility] Hemoglobin [Mass/vol ume] in Blood [facility] End: 10-04-2024 Hemoglobin.gastrointestin al.lower [Presence] in Stool by Immunoassay Fecal Occult Blood Immunoassy Microbiology STAT Once (Lab) for 1 Occurrences starting 10/04/2024 until 10/04/2024 [facility] Work Phone: Comment on above: Once (Lab) for 1 Occurrences starting until 10/04/2024 Hepatitis A virus Ig M Ab [Presence] in Serum [facility] Hepatitis B core ant ibody measurement, IgM type [facility] Hepatitis B surface antigen measurement [facility] Hepatitis C antibody measurement [facility] INR in Blood by Coagulation assay [facility] End: 10-04-2024 Lactate dehydrogenase [Enzymatic activity/volume] in Body fluid by Lactate to pyruvate reaction [facility] Work Phone: Comment on above: Once (Lab) for 1 Occurrences starting until 10/04/2024 Once for 1 Occurrenc es starting 10/04/2024 until 10/04/2024 Lactate dehydrogenas e [Enzymatic activity/volume] in Body fluid by Pyruvate to lactate reaction [facility] Lactic acid measurement [facility] Lactic acid measurement [facility] Leukocytes [#/volume ] in Blood [facility] Magnesium measurement [facility] Mean corpuscular hemoglobin concentration determination [facility] Mean corpuscular hemoglobin determination [facility] Measurement of renal function [facility] Neutrophil count [facility] Neutrophil percent differential count [facility] End: 10-04-2024 Non-gynecological cytology method study Cytology (Non-Gynecologic) Pathology and Cytology Routine Once (Lab) for 1 Occurrences starting 10/04/2024 until 10/04/2024 [facility] Service Area Work Phone: Comment on above: Once (Lab) for 1 Occurrences starting until 10/04/2024 Ova OR parasites identification [facility] Patient Education [facility] Work Phone: Patient referral [facility] Work Phone: End: 10-04-2024 pH of Body fluid [facility] Work Phone: Comment on above: Once (Lab) for 1 Occurrences starting until 10/04/2024 Platelets [#/volume] in Blood [facility] Potassium measurement [facility] End: 10-04-2024 Protein [Mass/volume] in Body fluid [facility] Work Phone: Comment on above: Once (Lab) for 1 Occurrences starting until 10/04/2024 Once for 1 Occurrenc es starting 10/04/2024 until 10/04/2024 Protein [Mass/volume ] in Body fluid [facility] Prothrombin time [facility] Red blood cell count [facility] Red cell distributio n width determination [facility] Respiratory pathogen s DNA and RNA panel - Respiratory specimen by ANANTH with probe detection [facility] Serum chloride measurement [facility] Sodium measurement [facility] End: 10-04-2024 Stool Pathogen Panel, PCR Stool Pathogen Panel, PCR Microbiology STAT Once (Lab) for 1 Occurrences starting 10/04/2024 until 10/04/2024 [facility] Work Phone: Comment on above: Once (Lab) for 1 Occurrences starting until 10/04/2024 Total protein measurement [facility] UA DIP, URINE (POC) UA DIP, URIN E (POC) Lab Routine Screening for genitourinary condition 1 Occurrences starting 12/07/2024 [facility] Work Phone: Comment on above: 1 Occurrences starting 12/07/2024 Urea nitrogen [Mass/volume] in Serum or Plasma [facility] End: 10-04-2024 Urinalysis complete W Reflex Culture panel - Urine [facility] Service Area Work Phone: Comment on above: Once (Lab) for 1 Occurrences starting until 10/04/2024 Once for 1 Occurrenc es starting 10/04/2024 until 10/04/[address] [facility] Urine culture [facility] Urine culture [facility] Urine culture [facility] Urine culture [facility] Urine culture [facility] Urine culture [facility] Urine culture [facility] Urine culture [facility] Immunizations Immunization Date Immunization Notes Care Provider Fa [facility] 11-16-2024 COVID-19 vaccine, ag e 12+ yr (Rep[facility]en-[facility]ip[facility]) Jeremi Abreu RN Work Phone: [facility] 11-15-2024 pneumococcal conjuga te (PCV20) vaccine, 20 valent (PREVNAR 20) Marah Arauz [facility] Work Phone: [facility] 11-14-2024 hepatitis A vaccine, adult dosage Marah Claroswellington PEDIATRIC CARE COORDINATOR Work Phone: [facility] 11-14-2024 Hepatitis B vaccine (recombinant), CpG adjuvanted Marah Clarsowellington PEDIATRIC CARE COORDINATOR Work Phone: [facility] 11-14-2024 tetanus toxoid, redu danica diphtheria toxoid, and acellular pertussis vaccine, adsorbed Marah Helwellington PEDIATRIC CARE COORDINATOR Work Phone: [facility] 09-20-2024 influenza, seasonal, injectable Jeremi Abreu RN Work Phone: [facility] Work Phone: 09-15-2024 tuberculin skin test ; purified protein derivative solution, intradermal Jeremi Abreu RN Work Phone: [facility] Payers Date Payer Category Payer Self-pay 2024 Medicaid [id number] 2024 Medicaid [id number] 1965 Unknown [id number] 1965 Unknown [id number] Unknown [id number] Social History Date Type Detail Facility Start: 10-04-2024 End: 04-09-2025 Tobacco smoking status NHIS Ex-smoker [facility] Work Phone: History of tobacco use [facility]: History of tobacco use [facility] Work Phone: Start: 10-04-2024 End: 11-11-2024 Tobacco use and exposure Smokeless tobacco non-user [facility] Work Phone: Start: 10-04-2024 Alcoholic beverage intake Ex-drinker (finding) [facility] Work Phone: Start: 10-04-2024 End: 11-15-2024 History of Social function [place] Start: 10-04-2024 End: 11-15-2024 Tobacco use panel [facility] Start: 1965 Sex assigned at Not on file [facility] Work Phone: Start: 09-24-2024 End: 10-04-2024 Exposure to SARS-CoV-2 (event) Not sure [facility] Work Phone: Start: 10-11-2024 End: 11-21-2024 Sex Male (finding) [facility] Start: 1965 Sex Assigned At Male [facility] Start: 11-11-2024 End: 11-18-2024 Alcoholic beverage intake Lifetime non-drinker (finding) [facility] Has the [employer], [employer], or water company threatened to shut off services in your home in past 12Mo No [facility] (I/We) worried wheth er (my/our) food would run out before (I/we) got money to buy more. Sometimes true [facility] In the past 12 month s, has lack of transportation kept you from medical appointments or from getting medications? Yes [facility] Medical Equipment Procedure Code Equipment Code Equipment Origin al Text Equipment Identifier Dates Insertion, PleurX catheter system, pleural cavity FDA Start: 03-30-2025 Insertion, PleurX catheter system, pleural cavity FDA Start: 03-30-2025 Cystoscopic insertion of stent ([id number]) [id number] FDA Start: 09-05-2024 Goals Date Patient Goal Desired Activity /State Functional Status Date Assessment Result Facility 04-10-2025 Functional status Bedrest [facility] Work Phone: 02-27-2025 Functional status Ambulates [facility] Work Phone: 02-17-2025 Functional status Bathroom Privi lege;Back to bed [facility] Work Phone: 01-31-2025 Functional status Ambulates [facility] Work Phone: 01-21-2025 Functional status Ambulates [facility] Work Phone: 01-05-2025 Functional status With Assist of [facility] Work Phone: 01-05-2025 Functional status Ambulates;Bath room Privilege [facility] Work Phone: 12-02-2024 Functional status Ambulates [facility] Work Phone: 11-25-2024 Functional status Bedrest [facility] Work Phone: 11-18-2024 Are you deaf, or do you have serious difficulty hearing Yes 11/18/2024 10:13 AM Anika Andino RN Yes [facility] 11-18-2024 Are you blind, or do you have serious difficulty seeing, even when wearing glasses No 11/18/2024 10:13 AM EDT Anika Carolina, DAYSI No [facility] 11-18-2024 Do you have serious difficulty walking or climbing stairs Yes 11/18/2024 10:13 AM EDT Anika Carolina, DAYSI Yes [facility] 11-18-2024 Do you have difficul ty dressing or bathing Yes 11/18/2024 10:13 AM EDT Anika Carolina, DAYSI Yes [facility] 11-18-2024 Because of a physica l, mental, or emotional condition, do you have difficulty doing errands alone such as visiting a physician's office or shopping Yes 11/18/2024 10:13 AM EDT Anika Carolina, DAYSI Yes [facility] 11-11-2024 Functional status Bedpan [facility] Work Phone: 09-15-2024 Functional status Ambulates [facility] Work Phone: 09-02-2024 Functional status Bathroom Privilege [facility] Work Phone: Mental Status Date Assessment Result Facility 04-10-2025 Cognitive function Awake;Appropr iate;Follows Commands [facility] Work Phone: 04-08-2025 Cognitive function Cooperative [facility] Work Phone: 04-07-2025 Cognitive function Awake;Drowsy [facility] Work Phone: 03-30-2025 Cognitive function Voice/Name [facility] Work Phone: 03-11-2025 Cognitive function Appropriate;F ollows Commands;Drowsy [facility] Work Phone: 03-04-2025 Cognitive function Awake;Alert;Appropriat e [facility] Work Phone: 02-27-2025 Cognitive function Voice/Name [facility] Work Phone: 02-17-2025 Cognitive function Voice/Name [facility] Work Phone: 02-16-2025 Cognitive function Alert;Appropr iate;Follows Commands;Drowsy [facility] Work Phone: 02-11-2025 Cognitive function Awake;Alert;Appropriat e [facility] Work Phone: 01-31-2025 Cognitive function Cooperative;A nxious;Talkat chris [facility] Work Phone: 01-30-2025 Cognitive function Voice/Name [facility] Work Phone: 01-28-2025 Cognitive function Awake;Alert;A ppropriate;Fo llows Commands [facility] Work Phone: 01-21-2025 Cognitive function Voice/Name [facility] Work Phone: 01-05-2025 Cognitive function Voice/Name [facility] Work Phone: 01-02-2025 Cognitive function Awake;Alert;Appropriat [facility] Work Phone: 12-30-2024 Cognitive function Awake;Alert;A ppropriate;Fo llows Commands [facility] Work Phone: 12-02-2024 Cognitive function Voice/Name [facility] Work Phone: 11-25-2024 Cognitive function Voice/Name [facility] Work Phone: 11-18-2024 Because of a physica l, mental, or emotional condition, do you have serious difficulty concentrating, remembering, or making decisions Yes 11/18/2024 10:13 AM Anika Andino RN Yes [facility] 11-10-2024 Cognitive function Voice/Name [facility] Work Phone: 09-29-2024 Cognitive function Awake;Alert;A ppropriate;Fo llows Commands [facility] Work Phone: 09-14-2024 Cognitive function Appropriate;Cooperativ e [facility] Work Phone: 09-14-2024 Cognitive function Voice/Name [facility] Work Phone: 09-02-2024 Cognitive function Voice/Name [facility] Work Phone: Clinical Notes 08-30-2024 to 04-20-2025 Note Date & Type Note Facility 04-20-2025 Note [facility] 04-10-2025 Discharge summary Note Date/Time April 10, 2025 10:52am [facility] Medical Records Department [address] [place] [address] Discharge Summary 04/10/25 1046 MR#: [id number] Acct: [id number] Name: FRANKLIN WIGGINS Rep #:[id number] : 1965 59 From: Anurag Lucero PCP: YG Pena Status:ADM I N Location: [place] [address] Providers Date of Admission: 04/07/25 Date of Discharge: 04/10/25 Primary Care Physician: YG ePna Reason For Visit: HEPATIC ENCEPHALOPATHY Diagnosis Discharge Diagnosis (1) Hepatic encephalopathy: Status: Acute Code(s): K76.82 - Hepatic encephalopathy Plan 53 gentleman was admitted for confusion and hepatic encephalopathy. He was altered mental status. Patient refused/revoked the hospice. 1. Acute hepatic encephalopathy decompensated BOYER cirrhosis with portosystemicanastomosis, esophageal varices: Patient is admitted on [facility] floor. Has beenadmitted multiple times recently for think. Once patient was in hospice care and requested PleurX catheter in the abdomen for ascites drainage. Ultrasound-guided tunneled catheter was inserted on 03/30. But patient got admitted on 04/07 after hospice revoked. In the past, he was found not transplant candidate by [facility] and he keeps changing mind to [...] discontinued. Yesterday, after discussion with Dr. Rick Barr, the plan was discharged but patienthad hematuria [...] Clarity Cloudy, Urine pH 7.0, Ur Specific [place] 1.010, Urine Protein 30 H, Urine Glucose [...] % (Auto) 62.8, Lymph % (Auto) 19.5, [place] % (Auto) 10.6 H, Eos % (Auto) [...] Care Provider: Josy Elias Consulting Providers: Maria Guadlaupe Shore; Rick Carlin Discharge Orders/Prescriptions Prescriptions: New [...] (if applicable): CC: YG Elias; Dr. Anurag Ierne MD~ Signed [facility] Work Phone: 1(635) 247-601709-07-2025 Discharge summary Author Anurag Irene [facility] Note Date/Time April 10, 2025 10:46am [facility] Medical Records Department [address] [place] [address] Instructions for Home/Discharge Instructions 04/10/25 0835 MR#: [id number] Acct: [id number] Name: FRANKLIN WIGGINS Rep #:[id number] : 1965 59 From: Anurag Lucero PCP: YG Pena Status:ADM I N Discharge Instructions DC O2, [...] Dr. Maria Guadalupe Shore MD; Dr. Rick Carlin, DO ~ Signed [facility] Work Phone: 1(781) 662-833409-07-2025 [facility]09-06-2025 Progress note Author Anurag Irene [facility] Note Date/Time April 09, 2025 1:59pm [facility] Medical Records Department [address] [place] [address] Progress Note - Hospitalist 04/09/25 1348 MR#: [id number] Acct: [id number] Name: FRANKLIN WIGGINS Rep #:[id number] : 1965 59 From: Anurag Lucero PCP: YG Pena Status:ADM I N Location: [place] [address] Reason for Visit Chief Complaint: Confusion, weakness. [...] portosystemicanastomosis, esophageal varices: [facility] Has beenadmitted multiple times recently for think. Once patient was in hospice care and requested PleurX catheter in the abdomen for ascites drainage. Ultrasound- guided tunneled catheter was inserted on 03/30. But patient got admitted on 04/07 after hospice revoked. In the past, he was found not transplant candidate by [facility] and he keeps changing mind to go to other hospital for transplant evaluation. Mild to moderate normocytic normochromic anemia with chronic thrombocytopenia: Patient H&H varies between 8 to 9 g and once was 7.7 on 02/17. No significant drop in last 2 to 3 days. Anticoagulant discontinued. Yesterday, after discussion with Dr. Rick Barr, the plan was discharged but patienthad hematuria [...] 201 H Charges/Coding Visit Charges Inpatient E&M: 49192 Subs Hosp L2 04/09/25 7159 <Electronically signed by Anurag Irene MD> Cosigner Signature (if applicable): CC: ~ Signed [facility] Work Phone: 1(228) 198-659809-05-2025 Progress note Author [facility] Note Date/Time April 08, 2025 4:58pm [facility] Medical Records Department [address] [place] [address] Progress Note - Hospitalist 04/08/25 1651 MR#: [id number] Acct: [id number] Name: FRANKLIN WIGGINS Rep #:[id number] : 1965 59 From: Rick Carlin DO PCP: YG Pena Status:ADM I N Location: MS3 [id number] Reason for Visit Chief Complaint: Confusion, weakness. Subjective Subjective Patient was seen and examined today, he is drowsy but awakens to verbal stimulation and follows commands. I have placed him on Xifaxan and oral lactulose. Objective Data Objective Data Vital Signs: Vital Signs Temp Pulse Resp BP Pulse Ox O2 Del Method 97.4 F L 80 18 113/68 100 Room Air 04/08/25 13:46 09/05/25 13:46 04/08/25 13:46 04/08/25 13:46 04/08/25 13:46 [...] (Auto) 67.0, Lymph % (Auto) 16.8 L, [place] % (Auto) 9.9, Eos % (Auto) 5.2 [...] Sl. Cloudy, Urine pH 6.5, Ur Specific [place] 1.015, Urine Protein 100 H, Urine Glucose [...] Neut % (Auto) 59.8, Lymph % (Auto) 22.5,[place] % (Auto) 10.7 H, Eos % (Auto) [...] 35 minutes Charges/Coding Visit Charges Inpatient E&M: 64411 Subs Hosp L2 04/08/25 2333 <Electronically signed by Rick Carlin DO> Cosigner Signature (if applicable): CC: ~ Signed [facility] Work Phone: 1(795) 617-596609-05-2025 Progress note Author Maria Guadalupe Shore [facility] Note Date/Time April 10, 2025 1:19pm [facility] Medical Records Department [address] [place] [address] Progress Note - Hospitalist 04/08/25352 MR#: [id number] Acct: [id number] Name: FRANKLIN WIGGINS Rep #:[id number] : 1965 59 From: Maria Guadalupe Shore MD PCP: BRITTANY PenaC Status:ADM I N Location: [place] [address] Hospitalist Note Respiratory panel with + rhinovirus. 04/08/25352 <Electronically signed by Maria Guadalupe Shore MD> Cosigner Signature (if applicable): CC: ~ Signed [facility] Work Phone: 1(328) 185-991909-05-2025 Discharge summary Author [facility] Note Date/Time April 07, 2025 11:52pm [facility] Medical Records Department [address] [place] [address] Emergency Department Summary 04/07/25 MR#: [id number] Acct: [id number] Name: FRANKLIN WIGGINS Rep #:[id number] : 1965 59 From: Rachel Holland PCP: YG Pena Status:ADM I N Location: [place] [address] HPI History of Present Illness Chief Complaint: [...] he is here and has no complaints. [facility] Medical History Diffuse abdominal pain [...] (Auto) 67.0 Lymph % (Auto) 16.8 L [place] % (Auto) 9.9 Eos % (Auto) 5.2 [...] Color Urine Clarity Urine pH Ur Specific [place] Urine Protein Urine Glucose (UA) Urine Ketones Urine Occult Blood Urine Nitrite Urine Bilirubin Urine Urobilinogen Ur Leukocyte Esterase Urine RBC Urine WBC Ur Squamous Epith Cells Urine Bacteria Urine Mucus POC Glucose 81 04/07/25 21:42 WBC RBC Hgb Hct MCV MCH MCHC RDW Std Deviation RDW Coeff of Francis Plt Count MPV Immature Gran % (Auto) Neut % (Auto) Lymph % (Auto) [place] % (Auto) Eos % (Auto) Baso % (Auto) Absolute Neuts (auto) Absolute Lymphs (auto) Nucleated RBC % Sodium Potassium Chloride Carbon Dioxide Anion Gap BUN Creatinine Est GFR (MDRD) Non-Af BUN/Creatinine Ratio Glucose Calcium Phosphorus Magnesium Total Bilirubin Direct Bilirubin AST ALT Alkaline Phosphatase Ammonia Total Protein Albumin Globulin Lipase Urine Color Yellow Urine Clarity Sl. Cloudy Urine pH 6.5 Ur Specific [place] 1.015 Urine Protein 100 H Urine Glucose [...] Chief Complaint: General Illness ED Provider: Rachel Joinre Dx/Rx/DC Orders Clinical Impression: Hepatic encephalopathy, Acute alteration in mental status, Hepatic cirrhosis Primary Care Provider: Josy Elias Disposition Disposition: Acute Care [facility] Discharge Date/Time: 04/07/25 23:38 What to do if you have Problems For any increased pain, shortness of breath, bleeding, nausea or vomiting, chestpain, or any unexpected problems, contact your Primary Care Provider. Call [facility] ([phone]) or report to the closest Emergency Room. Call 911 if necessary. 04/07/25 7992 <Electronically signed by Rachel Joiner DO> Cosigner Signature (if applicable): CC: YG Elias ~ Signed [facility] Work Phone: 1(869) 896-648409-04-2025 History and physical note Author Maria Guadalupe Shore [facility] Note Date/Time April 07, 2025 9:47pm [facility] Medical Records Department [address] [place] [address] H&P Exam - Hospitalist 04/07/252119 MR#: [id number] Acct: [id number] Name: FRANKLIN WIGGINS Rep #:[id number] : [...] following with Dr. Rascon who presents to [facility] ED on 04/28 with increased fatigue, malaise and reported URI type symptoms as well with increasing confusion with blood sugar noted to be 80 prior to ED arrival with episode of nausea and emesis with no fevers or chills prompting patient healthcare power of state attorney his ex- and a friend to care for him topresent him to the ED for further evaluation. Of note patient with recent 03/30/2025 ultrasound-guided placement of tunneled Pleur-X catheter for persistent cirrhotic ascites per Dr. Balderas with unfortunately then follow-up ED visit noted 04/03/2025 with paracentesis tubing unfortunately falling out with decision at that time her healthcare power of state attorney to return the patient to home [...] 1.76, D bili 1.11, AST/ALT 48/23, alk [id number], lipase 47, ammonia level 143, urinalysis pending upon requested evaluation of patient. Discussed with ED physician and patient will be administered rectal lactulose. [facility] Medical History Diffuse abdominal pain [...] (Auto) 67.0, Lymph % (Auto) 16.8 L, [place] % (Auto) 9.9, Eos % (Auto) 5.2 [...] following with Dr. Rascon who presents to [facility] ED on 04/28 with increased fatigue, malaise and reported URI type symptoms as well with increasing confusion with blood sugar noted to be 80 prior to ED arrival with episode of nausea and emesis with no fevers or chills prompting patient healthcare power of state attorney his ex- and a friend to [...] Stage II per GFR trending: Admission BUN/Cr 111.04,GFR 83, baseline renal function primarily 0.8-1.1 but [...] 16 minutes. Charges/Coding Visit Charges Inpatient E&M: 91893 Init Hosp L3 Procedures Hospitalists Procedures: 52549 Advncd Care Plan 30 Min 04/07/252146 <Electronically signed by Maria Guadalupe Shore MD> Cosigner Signature (if applicable): CC: YG Elias; Dr. Maria Guadalupe Shore MD~ Signed [facility] Work Phone: 1(194) 650-431409-04-2025 History and physical note Author Maria Guadalupe Shore [facility] Note Date/Time April 07, 2025 9:47pm [facility] Medical Records Department [address] [place] [address] H&P Exam - Hospitalist 04/07/252119 MR#: [id number] Acct: [id number] Name: FRANKLIN WIGGINS Rep #:[id number] : 1965 59 From: Maria Guadalupe Shore MD PCP: Josy Elias, ALTERATION SPECIALIST-C Status:REG E R Location: ED HPI - [...] following with Dr. Rascon who presents to [facility] ED on 04/28 with increased fatigue, malaise and reported URI type symptoms as well with increasing confusion with blood sugar noted to be 80 prior to ED arrival with episode of nausea and emesis with no fevers or chills prompting patient healthcare power of state attorney his ex- and a friend to care for him topresent him to the ED for further evaluation. Of note patient with recent 03/30/2025 ultrasound-guided placement of tunneled Pleur-X catheter for persistent cirrhotic ascites per Dr. Balderas with unfortunately then follow-up ED visit noted 04/03/2025 with paracentesis tubing unfortunately falling out with decision at that time her healthcare power of state attorney to return the patient to home [...] 1.76, D bili 1.11, AST/ALT 48/23, alk [id number], lipase 47, ammonia level 143, urinalysis pending upon requested evaluation of patient. Discussed with ED physician and patient will be administered rectal lactulose. [facility] Medical History Diffuse abdominal pain [...] (Auto) 67.0, Lymph % (Auto) 16.8 L, [place] % (Auto) 9.9, Eos % (Auto) 5.2 [...] following with Dr. Rascon who presents to [facility] ED on 04/28 with increased fatigue, malaise and reported URI type symptoms as well with increasing confusion with blood sugar noted to be 80 prior to ED arrival with episode of nausea and emesis with no fevers or chills prompting patient healthcare power of state attorney his ex- and a friend to [...] 16 minutes. Charges/Coding Visit Charges Inpatient E&M: 24311 Init Hosp L3 Procedures Hospitalists Procedures: 09476 Advncd Care Plan 30 Min 04/07/257 <Electronically signed by Maria Guadalupe Shore MD> Cosigner Signature (if applicable): CC: ALTERATION SPECIALIST-C Josy Elias; Dr. Maria Guadalupe Shore MD~ Signed [facility] Work Phone: 1(817) 983-486008-27-2025 [facility]08-08-2025 Discharge summary Author Alber Dunn [facility] Note Date/Time March 11, 2025 10: 05pm [facility] Medical Records Department [address] [place] [address] Emergency Department Summary 03/11/25 MR#: [id number] Acct: [id number] Name: FRANKLIN WIGGINS Rep #:[id number] : [...] insulin but he doesnot know how much. [facility] <PAULETTE Roberts - Last Filed: 03/11/25 22:00> [facility] Medical History Diffuse abdominal pain [...] <PAULETTE Roberts - Last Filed: 03/11/25 22:00> [facility] MDM Narrative Medical decision making narrative: Differential: [...] 70.2 H Lymph % (Auto) 12.6 L [place] % (Auto) 10.9 H Eos % (Auto) [...] 70.2 H Lymph % (Auto) 12.6 L [place] % (Auto) 10.9 H Eos % (Auto) [...] run high. [facility]. Print Language: Spanish Disposition Disposition: Home, Self Care What to do if you have Problems For any increased pain, shortness of breath, bleeding, nausea or vomiting, chestpain, or any unexpected problems, contact your Primary Care Provider. Call [facility] ([phone]) or report to the closest Emergency Room. Call 911 if necessary. 03/11/252204 <Electronically signed by Alber Dunn MD> Cosigner Signature (if applicable): 03/11/252199 <Electronically signed by Day CALDWELL> CC: YG Elias ~ Signed [facility] Work Phone: 1(407) 116-508407-27-2025 [facility]07-17-2025 [facility]07-16-2025 Discharge summary Author Alber Dunn [facility] Note Date/Time February 16, 2025 6:39 pm [facility] Medical Records Department [address] [place] [address] Emergency Department Summary 02/16/25 MR#: [id number] Acct: [id number] Name: FRANKLIN WIGGINS Rep #:[id number] : [...] diabetes mellitus Disposition Disposition: Acute Care Hospital [facility] What to do if you have Problems For any increased pain, shortness of breath, bleeding, nausea or vomiting, chestpain, or any unexpected problems, contact your Primary Care Provider. Call [facility] ([phone]) or report to the closest Emergency Room. Call 911 if necessary. 02/16/25 3646 <Electronically signed by Alber Dunn MD> Cosigner Signature (if applicable): CC: Dr. Jerald Sherwood MD ~ Signed [facility] Work Phone: 1(990) 129-869807-16-2025 Procedure [facility] 02-13-2025 Radiology Diagnostic study [facility]07-11-2025 Radiology Diagnostic study [facility]07-08-2025 Radiology Diagnostic study [facility]06-30-2025 Discharge summary Author Yaritza Leo [facility] Note Date/Time January 31, 2025 2:41 pm [facility] Medical Records Department [address] [place] [address] Discharge Summary 01/31/25 1217 MR#: [id number] Acct: [id number] Name: FRANKLIN WIGGINS Rep #:[id number] : 1965 59 From: Yaritza Leo DO PCP: Dr. Jerald Sherwood MD Status:ADM I N Location: [place] [address] Providers Date of Admission: 01/28/25 Date of [...] a 59-year-old male who presented from local assisted facility to which she was discharged on [...] Final Vancomycin Resist. E. 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 Yaritza Leo DO; Dr. Jerald Sherwood MD~ Signed [facility] Work Phone: 1(609) 465-132906-30-2025 [facility]06-30-2025 Hospital Discharge instructionsAdditional Instructions 1. Goal bowel movements with lactulose is 2-3 bowel movements daily. If you are having more than 3 bowel movements daily please decrease your lactulose from 3 times daily to 2 times daily 2. It is very important that you are compliant with your medications and utilize them as directed [facility]: [facility] 1(408) 225-122206-29-2025 Progress note Author Yaritza Leo [facility] Note Date/Time January 30, 2025 1:37 pm [facility] Medical Records Department [address] [place] [address] Progress Note - Hospitalist 01/30/25 0728 MR#: [id number] Acct: [id number] Name: FRANKLIN WIGGINS Rep #:[id number] : 1965 59 From: Yaritza Leo DO PCP: Dr. 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 01/28/25 03:10 Mucosa - Nose SARS-CoV-2, Influenza [...] Full code Charges/Coding Visit Charges Inpatient E&M: 30581 Subs Hosp L2 01/30/25 1337 <Electronically signed by Yaritza Leo DO> Cosigner Signature (if applicable): CC: ~ Signed [facility] Work Phone: 1(665) 336-628306-28-2025 Progress note Author Yaritza Leo [facility] Note Date/Time January 29, 2025 5:59 pm [facility] Medical Records Department [address] [place] [address] Progress Note - Hospitalist 01/29/25 0754 MR#: [id number] Acct: [id number] Name: FRANKLIN WIGGINS Rep #:[id number] : 1965 59 From: Yaritza Leo DO PCP: Dr. Jerald Sherwood MD Status:ADM I N Location: [place] [address] Reason for Visit Reason for Visit: Fever [...] 01/29/25 03:00 01/29/25 06:30 01/29/25 03:00 01/29/25 06:01/29/25 03:00 01/29/25 03:00 Oxygen Delivery Method Room [...] (Auto) 60.8, Lymph % (Auto) 17.1 L, [place] % (Auto) 15.2 H, Eos % (Auto) [...] Full code Charges/Coding Visit Charges Inpatient E&M: 59995 Subs Hosp L2 01/29/25 0460 <Electronically signed by Yaritza Leo DO> Cosigner Signature (if applicable): CC: ~ Signed [facility] Work Phone: 1(426) 999-770606-27-2025 History and physical note Author Boone Izquierdo [facility] Note Date/Time January 28, 2025 7:26 am [facility] Medical Records Department [address] [place] [address] H&P Exam - Hospitalist 01/28/25 0710 MR#: [id number] Acct: [id number] Name: FRANKLIN WIGGINS Rep #:[id number] : 1965 59 From: Boone Izquierdo DO PCP: Dr. Jerald Sherwood MD Status:REG E R Location: ED HPI - General General Date of Service: 01/28/25 Chief Complaint: Fever. HPI Narrative FRANKLIN WIGGINS, is a 59 M who presents with fever from the [facility]. This ashely 59-year-old male with cirrhosis presents with fever and confusion from the [facility]. In emergency room, he was afebrile but [...] stable in the emergencyroom without fluid resuscitation. [facility] Medical History (Updated 01/28/25 @ [...] (Auto) 57.8, Lymph % (Auto) 18.8 L, [place] % (Auto) 16.7 H, Eos % (Auto) [...] Clarity Cloudy, Urine pH 8.0, Ur Specific [place] 1.015, Urine Protein 100 H, Urine Glucose [...] be continued. Charges/Coding Visit Charges Inpatient E&M: 67881 Init Hosp L3 01/28/25 0726 <Electronically signed by Boone Izquierdo DO> Cosigner Signature (if applicable): CC: Dr. Boone Izquierdo DO; Dr. Jerald Sherwood MD~ Signed [facility] Work Phone: 1(134) 161-577106-27-2025 History and physical note Author Boone Izquierdo [facility] Note Date/Time January 28, 2025 7:26 am [facility] Medical Records Department [address] [facility] [place] [address] H&P Exam - Hospitalist 01/28/25 0710 MR#: [id number] Acct: [id number] Name: FRANKLIN WIGGINS Rep #:[id number] : 1965 59 From: Boone Izquierdo DO PCP: Dr. Jerald Sherwood MD Status:REG E R Location: ED HPI - General General Date of Service: 01/28/25 Chief Complaint: Fever. HPI Narrative FRANKLIN WIGGINS, is a 59 M who presents with fever from the [facility]. This ashely 59-year-old male with cirrhosis presents with fever and confusion from the [facility]. In emergency room, he was afebrile but [...] stable in the emergencyroom without fluid resuscitation. [facility] Medical History (Updated 01/28/25 @ 07:[address] Boone Jopperi, DO) Hepatic encephalopathy Umbilical hernia Chronic hyponatremia [...] (Auto) 57.8, Lymph % (Auto) 18.8 L, [place] % (Auto) 16.7 H, Eos % (Auto) [...] Clarity Cloudy, Urine pH 8.0, Ur Specific [place] 1.015, Urine Protein 100 H, Urine Glucose [...] bilateral basilar atelectatic pulmonary changes. Reading Location: [place] [address] Abdomen/Pelvis CT 01/28/25 05:12 IMPRESSION: Cirrhosis, collateral [...] correlate for possible hepatic colopathy. Reading Location: [facility]-2 Assessment & Plan Assessment/Plan (1) [...] be continued. Charges/Coding Visit Charges Inpatient E&M: 74084 Init Hosp L3 01/28/25 0726 <Electronically signed by Boone Izquierdo DO> Cosigner Signature (if applicable): CC: Dr. Boone Izquierdo DO; Dr. Jerald Sherwood MD~ Signed [facility] Work Phone: 1(659) 620-283306-27-2025 Discharge summary Author Danny Laureano-Lucero [facility] Note Date/Time January 28, 2025 6:59 am [facility] Medical Records Department [address] [place] [address] Emergency Department Summary 01/28/25 MR#: [id number] Acct: [id number] Name: FRANKLIN WIGGINS Rep #:[id number] : 1965 59 From: Danny christy DO PCP: Dr. Jerald Sherwood MD Status:REG E R Location: ED HPI History of Present Illness Chief Complaint: Confusion Narrative Narrative: Chief complaint and HPI: Fever and confusion. 59-year-old male with past medical history DM2, ABBY, HTN, HLD, liver 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 presents from [facility] for fever and confusion. History taken by [...] diarrhea, constipation, dysuria. I personally spoke with [facility] staff. The nurse is new to taking [...] Alert, grossly intact, sensation intact Psych: Cooperative [facility] Medical History Umbilical hernia [...] mg tablet (Xifaxan) 550 mg PO BID [facility] ea #60 tabs 09/02/24 11/28/24 Rx acetaminophen [...] liver 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 presents from [facility] for fever and confusion. Patient is a poor historian therefore history taken by EMS as well as [facility] nurse. Reported patient developed a fever of 101 ?F this evening prior to arrival. No meds were given. Nurse as well as myself does not know the patient's baseline mental status although nursing staff here that note is the patient states that wax and wanes. Nurse there states that multiple techs felt that the patient wasconfused at [facility] and that he was asking about people [...] (Auto) 57.8 Lymph % (Auto) 18.8 L [place] % (Auto) 16.7 H Eos % (Auto) [...] Color Urine Clarity Urine pH Ur Specific [place] Urine Protein Urine Glucose (UA) Urine Ketones Urine Occult Blood Urine Nitrite Urine Bilirubin Urine Urobilinogen Ur Leukocyte Esterase Urine RBC Urine WBC Ur Squamous Epith Cells Urine Bacteria Urine Mucus 01/28/25 01/28/25 04:33 04:58 WBC RBC Hgb Hct MCV MCH MCHC RDW Std Deviation RDW Coeff of Francis Plt Count MPV Immature Gran % (Auto) Neut % (Auto) Lymph % (Auto) [place] % (Auto) Eos % (Auto) Baso % [...] Clarity Cloudy Urine pH 8.0 Ur Specific [place] 1.015 Urine Protein 100 H Urine Glucose [...] correlate for possible hepatic colopathy. Reading Location: [place] [address] Discharge Plan Triage Chief Complaint: Confusion ED [...] MD [Primary Care Provider] - Print Language: Spanish What to do if you have Problems For any increased pain, shortness of breath, bleeding, nausea or vomiting, chestpain, or any unexpected problems, contact your Primary Care Provider. Call [facility] ([phone]) or report to the closest Emergency Room. Call 911 if necessary. 01/28/25 0659 <Electronically signed by Danny Hutton DO> Cosigner Signature (if applicable): CC: Dr. Jerald Sherwood MD ~ Signed [facility] Work Phone: 1([phone]) 171-817306-27-2025 [id number] Radiology Diagnostic study [facility]06-20-2025 Discharge summary Author Anurag Irene [facility] Note Date/Time January 21, 2025 11:1 2am [facility] Medical Records Department [address] [place] [address] Transfer to [facility] Care MR#: [id number] Acct: [id number] Name: FRNAKLIN WIGGINS Rep #:[id number] : 1965 59 From: Anurag Lucero PCP: YG Pena Status:ADM I N Certification of patient admission REQUIRED AT TIME OF ADMISSION. I CERTIFY THAT POST-HOSPITAL ECF SERVICES ARE REQUIRED TO BE GIVEN ON AN IN-PATIENT BASIS BECAUSE OF THE ABOVE NAMED PATIENT'S NEED FOR LONG-TERM CARE ON A CONTINUING BASIS FOR THE CONDITION(S) FOR WHICH HE/SHE WAS RECEIVING IN-PATIENT HOSPITAL SERVICES PRIOR TO HIS/HER TRANSFER TO THE [facility]. 01/21/25 1112<Electronically signed by Anurag Irene MD> [...] (Auto) 63.5, Lymph % (Auto) 16.3 L, [place] % (Auto) 11.9 H, Eos % (Auto) [...] Additional Instructions / Restrictions: Follow-up in [facility] hepatology/GI. Discharge Orders/Prescriptions Prescriptions: New spironolactone [...] in before D/C Order can be placed): Custodial Facility 01/21/25 1112 <Electronically signed by Anurag Irene MD> Cosigner Signature (if applicable): CC: YG Elias; Dr. Aleyda Bautista MD; Dr. Yaritza Leo DO; Dr. Cielo Tovar MD; Dr. Jefferson Malave MD ~ [facility] Work Phone: 1(171) 751-298506-20-2025 Discharge summary Author Anurag Irene [facility] Note Date/Time January 21, 2025 1:29 pm [facility] Medical Records Department [address] [place] [address] Discharge Summary 01/21/25 1112 MR#: [id number] Acct: [id number] Name: FRANKLIN WIGGINS Rep #:[id number] : 1965 59 From: Anurag Lucero PCP: YG Pena Status:ADM I N Location: [place] [id number] Providers Date of Admission: 01/09/25 Date of Discharge: 01/21/25 Primary Care Physician: YG Pena Consultations 01/09/25 15:46 Consult: Maternity Nurse / Pulmonary Medicine Routine Consulting Provider: Intensivists/Pulmonary [...] (Auto) 63.5, Lymph % (Auto) 16.3 L, [place] % (Auto) 11.9 H, Eos % (Auto) [...] solution (Constulose) 15 ml PO TID PRN hzfrwialyenm12/27/25 L.acidophil,salivari-Bifido bifidum-Strep thermoph 175 mg capsule 1 [...] Additional Instructions / Restrictions: Follow-up in [facility] hepatology/GI. Discharge Orders/Prescriptions Prescriptions: New spironolactone [...] in before D/C Order can be placed): Custodial Facility Charges/Coding Visit Charges Inpatient E&M: 57549 Disch Hosp >30min 01/21/25 1117 <Electronically signed [...] Elias; Dr. Anurag Irene MD ~* Signed [facility] Work Phone: 1(690) 222-334906-20-2025 [facility]06-19-2025 Progress note Author Anurag Irene [facility] Note Date/Time January 20, 2025 2:40 pm [facility] Medical Records Department [address] [place] [address] Progress Note - Hospitalist 01/20/25 1436 MR#: [id number] Acct: [id number] Name: FRANKLIN WIGGINS Rep #:[id number] : 1965 59 From: Anurag Lucero PCP: YG Pena Status:ADM I N Location: [place] [address]- Reason for Visit Reason for Visit: Diagnoses [...] (Auto) 63.5, Lymph % (Auto) 16.3 L, [place] % (Auto) 11.9 H, Eos % (Auto) [...] (Auto) 63.5, Lymph % (Auto) 16.3 L, [place] % (Auto) 11.9 H, Eos % (Auto) [...] 167 H Charges/Coding Visit Charges Inpatient E&M: 72842 Subs Hosp L2 01/20/25 1440 <Electronically signed by Anurag Irene MD> Cosigner Signature (if applicable): CC: ~ Signed [facility] Work Phone: 1(983) 260-935506-18-2025 Progress note Author Anurag Irene [facility] Note Date/Time January 19, 2025 4:46 pm [facility] Medical Records Department [address] [place] [address] Progress Note - Hospitalist 01/19/2519 MR#: [id number] Acct: [id number] Name: FRANKLIN WIGGINS Rep #:[id number] : 1965 59 From: Anurag Lucero PCP: YG Pena Status:ADM I N Location: [place] [address] Reason for Visit Reason for Visit: Diagnoses [...] WBCs % 75.6, Fluid Neutrophils 20, Fluid Nwmnvftykrh74, Fluid Monocytes 3, Fluid Macrophages 46, Fluid [...] (Auto) 67.7, Lymph % (Auto) 13.6 L, [place] % (Auto) 11.0 H, Eos % (Auto) [...] gas. Correlate with surgical history. Reading Location: [id number] Paracentesis Ultrasound 01/18/25 13:08 IMPRESSION: Right lower quadrant marker was applied for paracentesis with drain the fluid volume of 2650 cc. Reading Location: [place] [address] Physical Exam Narrative Seen and examined Discussed [...] also. * stool for ocult blood negative 6/18: H&H 7.6/22.3%. Platelet count 100 7K. #Chronic [...] WBCs % 75.6, Fluid Neutrophils 20, Fluid Gfyhdgcmugi86, Fluid Monocytes 3, Fluid Macrophages 46, Fluid [...] (Auto) 67.7, Lymph % (Auto) 13.6 L, [place] % (Auto) 11.0 H, Eos % (Auto) [...] 198 H Charges/Coding Visit Charges Inpatient E&M: 89992 Subs Hosp L2 01/19/25 1646 <Electronically signed by Anurag Irene MD> Cosigner Signature (if applicable): CC: ~ Signed [facility] Work Phone: 1(247) 617-581606-18-2025 Radiology Diagnostic study [facility]06-17-2025 Radiology Diagnostic study [facility]06-17-2025 Progress note Author Anurag Irene [facility] Note Date/Time January 18, 2025 1:14 pm [facility] Medical Records Department [address] [place] [address] Progress Note - Hospitalist 01/18/25 1302 MR#: [id number] Acct: [id number] Name: FRANKLIN WIGGINS Rep #:[id number] : 1965 59 From: Anurag Lucero PCP: YG Pena Status:ADM I N Location: [place] [address] Reason for Visit Reason for Visit: Diagnoses [...] (Auto) 68.1, Lymph % (Auto) 14.0 L, [place] % (Auto) 10.0, Eos % (Auto) 6.1 [...] imaging showed compression fracture. Complain of pain / on moving/turning around on the bed Physical [...] prophylaxis: SCDs Charges/Coding Visit Charges Inpatient E&M: 84209 Subs Hosp L2 01/18/25 1314 <Electronically signed by Anurag Irene MD> Cosigner Signature (if applicable): CC: ~ Signed [facility] Work Phone: 1(387) 518-491706-17-2025 Consult note Author Mohit Santos [facility] Note Date/Time January 18, 2025 12:4 9pm [facility] Medical Records Department [address] [place] [address] Pre-Anesthesia Evaluation 01/18/25 1246 MR#: [id number] Acct: [id number] Name: FRANKLIN WIGGINS Rep #:[id number] : 1965 59 From: Mohit Santos MD PCP: YG Pena Status:ADM I N Y Race: C Location: [place] [address] 2-1 ASA Classification* ASA Classification ASA Classification: [...] COAG PT 22.9 SECONDS (11.7-14.9) H 01/18/25 05:01/0225 Pre-Assessment Diagnosis/Proposed Procedure Planned Operative Procedure(s): Lumbar steroid injection L1/L2 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 Hx Hospitalization Any Problems With Anesthesia No [...] am of surgery tylenol PONV 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: 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 Female HX of Motion Sickness HX of N/V After Surgery Non-Smoker Duration of Surgery greater than 60 minutes Number of Risk Factors PONV Score Height & Weight Height & Weight: Anesthesia: Height & Weight Height 5 ft 9 in 01/17/25 14:51 Weight: 111.3 kg 01/18/25 08:57 Body Mass Index (BMI) 36.2 01/18/25 03:51 Respiratory Assessment Respiratory Assessment - 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: Respiratory Tract Infection Hx - 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 Hx Respiratory Tract Infection No 01/18/25 09:01 STOP Sleep Apnea STOP Sleep Apnea - 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: STOP Sleep Apnea - 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 Hx Hypertension No 01/10/25 10:46 Hx Sleep [...] Tobacco Use History 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 Use 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: Tobacco Use 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 Tobacco Use Smoking Status Former smoker 01/10/25 09:20 Hx Tobacco Use Yes 01/09/25 15:31 Years Smoking Packs Smoked per Day Smoking Cessation Date was Yes - quit smoking within 15 01/09/25 15:31 within the last 15 years years Hx Smoking Cessation Date 05/04/24 01/09/25 15:31 Hx Smoking Cessation Counseling Hematologic Medial History Hematologic Hx - 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: Hematologic Medical Hx - rn perioperative Hx of Blood Transfusion No 01/09/25 15:31 [...] confused, unrespo /Reproduction History /Reproductive 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: /Reproductive Hx- 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 Hx Now No 01/18/25 09:01 Gestational Age [...] 1 Tablet Tablet PO Not Given DAILY [facility] Cyclobenzaprine HCl 10 mg 01/09/25 22:00 01/17/25 21:05 Cyclobenzaprine Hcl 10 Mg Tablet PO 10 mg QHS [facility] Administration Ferrous Sulfate 325 mg 01/10/25 12:00 01/18/25 11:33 Ferrous Sulfate 325 Mg Tablet PO Not Given Q48@1200 [facility] Folic Acid 1 mg 01/10/25 08:00 01/18/25 11:31 Folic Acid 1 Mg Tablet PO Not Given BREAKFAST [facility] Sodium Chloride 250 mls @ 15 mls/hr 01/09/25 15:34 IV .[id number] PRN Saline Flush Sodium Chloride 250 mls @ 15 mls/hr 01/09/25 15:34 IV .[id number] PRN Additional IVPB Infusion Sodium Chloride 1,000 mls @ 15 mls/hr 01/18/25 12:45 IV .Q48H [facility] Insulin Glargine 20 unit 01/09/25 22:00 01/17/25 21:05 Insulin Glargine-Yfgn 100 Unit/Ml Pen SC 20 unit QHS [facility] Administration Insulin Glargine 20 unit 01/10/25 [...] PO 10 mg TIDCM [facility] Administration Morphine Sulfate 1 mg 01/11/25 [...] 100 Mg Tablet PO Not Given DAILY [facility] PFSH Medical History (Updated 01/17/25 @ 16:52 [...] diaphoretic 01/18/25 1249 <Electronically signed by Mohit Sanots MD> Date _ Mohit Santos MD Cosigner Signature: Date CC: ~ Signed [facility] Work Phone: 1(382) 890-120806-16-2025 Consult note Author Buster Carmichael [facility] Note Date/Time January 17, 2025 4:57 pm [facility] Medical Records Department [address] [place] [address] Consultation 01/17/25 1522 MR#: [id number] Acct: [id number] Name: FRANKLIN WIGGINS Rep #:[id number] : 1965 59 From: Buster brewster MD PCP: Josy Elias ALTERATION SPECIALIST-C Status:ADM I N Location: [place] [address] Assessment & Plan Assessment/Plan (1) Spinal stenosis, [...] be 8- 10/10 in severity when moving. [facility] Medical History (Updated 01/17/25 @ [...] (Auto) 67.2, Lymph % (Auto) 12.9 L, [place] % (Auto) 11.5 H, Eos % (Auto) 6.8 H, Baso % (Auto) 0.5, Absolute Neuts (auto) 5.7, Absolute Lymphs (auto) 1.09, Nucleated RBC % 0 01/17/25 06:28: POC Glucose 173 H 01/17/25 11:26: POC Glucose 141 H 01/17/25 1657 <Electronically signed by Buster Carmichael MD> Cosigner Signature (if applicable): CC: YG Elias~ Signed [facility] Work Phone: 1(627) 403-139306-16-2025 Progress note Author Anurag Irene [facility] Note Date/Time January 17, 2025 2:32 pm [facility] Medical Records Department [address] [place] [address] Progress Note - Hospitalist 01/17/25 1420 MR#: [id number] Acct: [id number] Name: FRANKLIN WIGGINS Rep #:[id number] : 1965 59 From: Anurag Lucero PCP: YG Pena Status:ADM I N Location: [place] [address] Reason for Visit Reason for Visit: Diagnoses [...] (Auto) 67.2, Lymph % (Auto) 12.9 L, [place] % (Auto) 11.5 H, Eos % (Auto) [...] prophylaxis: SCDs Charges/Coding Visit Charges Inpatient E&M: 46592 Subs Hosp L2 01/17/25 8593 <Electronically signed by Anurag Irene MD> Cosigner Signature (if applicable): CC: ~ Signed [facility] Work Phone: 1(165) 134-682906-16-2025 [facility]06-15-2025 Progress note Author Cielo Tovar [facility] Note Date/Time January 16, 2025 3:37 pm [facility] Medical Records Department [address] [place] [address] Progress Note 01/16/25 1236 MR#: [id number] Acct: [id number] Name: FRANKLIN WIGGINS Rep #:[id number] : 1965 59 From: Cielo Tovar MD PCP: YG Pena Status:ADM I N Location: [place] [address] Subjective Subjective Patient seen and examined. He [...] (Auto) 64.9, Lymph % (Auto) 14.6 L, Ben Hill % (Auto) 12.7 H, Eos % (Auto) [...] at home. Charges/Coding Visit Charges Inpatient E&M: 97802 Subs Hosp L2 01/16/25 1537 <Electronically signed by Cielo Tovar MD> Cielo Tovar MD Cosigner Signature (if applicable): CC: ~ Signed [facility] Work Phone: 1(939) 888-350006-14-2025 Consult note Author Buster Hahn [facility] Note Date/Time January 15, 2025 6:46 pm [facility] Medical Records Department [address] [place] [address] Pharmacokinetic/Renal -Consult 01/15/25 1846 MR#: [id number] Acct: [id number] Name: FRANKLIN WIGGINS Rep #:[id number] : 1965 59 From: Buster farrell [facility] PCP: YG Pena Status:ADM I N Y Location: [place] [address] Consult Antibiotic Management Pharmacy has been consulted [...] 01/15/25 1846 <Electronically signed by Buster Nieves [facility]> Date _ Buster Hahn [facility] Cosigner Signature (if applicable): Date CC: ~ Signed [facility] Work Phone: 1(975) 714-598406-14-2025 Progress [facility] Note Date/Time January 15, 2025 6:29 pm [facility] Medical Records Department [address] [place] [address] Progress Note 01/15/25 1321 MR#: [id number] Acct: [id number] Name: FRANKLIN WIGGINS Rep #:[id number] : 1965 59 From: Cielo Tovar MD PCP: YG Pena Status:ADM I N Location: [place] [address] Subjective Subjective Patient seen and examined. He [...] (Auto) 65.6, Lymph % (Auto) 13.2 L, [place] % (Auto) 13.6 H, Eos % (Auto) [...] at multiple levels, as described. Reading Location: [place] [address] Physical Exam Const alert, oriented x3 and [...] at home. Charges/Coding Visit Charges Inpatient E&M: 89061 Subs Hosp L2 01/15/25 7808 <Electronically signed by Cielo Tovar MD> Cielo Tovar MD Cosigner Signature (if applicable): CC: ~ Signed [facility] Work Phone: 1(129) 299-577406-13-2025 Consult note Author [facility] Note Date/Time January 14, 2025 8:04 pm [facility] Medical Records Department [address] [facility] [place] [address] Pharmacokinetic/Renal -Consult 01/14/252002 MR#: [id number] Acct: [id number] Name: FRANKLIN WIGGINS Rep #:[id number] : 1965 59 From: Andreia Carvalho PCP: YG Pena Status:ADM I N Y Location: [place] [address] Consult Antibiotic Management Pharmacy has been consulted [...] Signature (if applicable): Date CC: ~ Signed [facility] Work Phone: 1(246) 375-547506-13-2025 Progress note Author Cielo Tovar [facility] Note Date/Time January 14, 2025 5:19 pm [facility] Medical Records Department [address] [place] [address] Progress Note 01/14/25 1706 MR#: [id number] Acct: [id number] Name: FRANKLIN WIGGINS Rep #:[id number] : 1965 59 From: Cielo Tovar MD PCP: YG Pena Status:ADM I N Location: [place] [address] Subjective Subjective Patient seen and examined. He [...] (Auto) 65.3, Lymph % (Auto) 13.5 L, [place] % (Auto) 14.3 H, Eos % (Auto) [...] at multiple levels, as described. Reading Location: [place] [address] Thoracic Spine MRI 01/13/25 10:30 IMPRESSION: Abnormal marrow signal at T12 and L1. No acute compression deformity identified. Can not exclude metastatic involvement of these 2 vertebral bodies. Degenerative changes in the remainder of the lumbar spine. There is mild spinal stenosis at the level of T10-T11 and T11-T12. The patient could not tolerate postcontrast imaging. There is no cord compression Reading Location: [facility] Chest CT 01/14/25 08:06 IMPRESSION: 1. Partially visualized severe degenerative changes of T11-T12 with areas of erosive changes and lytic lesions. Metastasis can not be excluded. 2. Cirrhosis and ascites. 3. Mild lung emphysema. No suspicious nodules or focal consolidation. Reading Location: [facility] Physical Exam Const alert, oriented [...] medically stable. Charges/Coding Visit Charges Inpatient E&M: 56577 Subs Hosp L2 01/14/25 3992 <Electronically signed by Cielo Tovar MD> Cielo Tovar MD Cosigner Signature (if applicable): CC: ~ Signed [facility] Work Phone: 1(434) 987-370306-13-2025 Radiology Diagnostic study [facility]06-12-2025 Progress note Author Cielo [facility] Note Date/Time January 13, 2025 6:28 pm [facility] Medical Records Department [address] [place] [address] Progress Note 01/13/25 1517 MR#: [id number] Acct: [id number] Name: FRANKLIN WIGGINS Rep #:[id number] : 1965 59 From: Cielo Tovar MD PCP: YG Pena Status:ADM I N Location: [place] [address] Subjective Subjective Patient seen and examined. He [...] (Auto) 65.6, Lymph % (Auto) 14.4 L, [place] % (Auto) 13.7 H, Eos % (Auto) [...] medically stable. Charges/Coding Visit Charges Inpatient E&M: 96069 Subs Hosp L2 01/13/25 4380 <Electronically signed by Cielo Tovar MD> Cielo Tovar MD Cosigner Signature (if applicable): CC: ~ Signed [facility] Work Phone: 1(706) 795-787706-12-2025 Consult note Author Francheska Montoya [facility] Note Date/Time January 13, 2025 9:36 am [facility] Medical Records Department [address] [place] [address] Pharmacokinetic/Renal -Consult 01/13/25 0934 MR#: [id number] Acct: [id number] Name: FRANKLIN WIGGINS Rep #:[id number] : 1965 59 From: Francheska Mcfarlane PCP: Josy Elias ALTERATION SPECIALIST-Pastora Status:ADM I N Y Location: [place] [address] Consult Antibiotic Management Pharmacy has been consulted [...] Signature (if applicable): Date CC: ~ Signed [facility] Work Phone: 1(449) 408-597106-11-2025 Progress note Author Cielo [facility] Note Date/Time January 12, 2025 4:51 pm [facility] Medical Records Department [address] [place] [address] Progress Note 01/12/25 1646 MR#: [id number] Acct: [id number] Name: FRANKLIN WIGGINS Rep #:[id number] : 1965 59 From: Cielo Tovar MD PCP: YG Pena Status:ADM I N Location: [place] [address] Subjective Subjective Patient seen and examined. He [...] (Auto) 68.2, Lymph % (Auto) 11.6 L, [place] % (Auto) 12.1 H, Eos % (Auto) [...] his facility. Charges/Coding Visit Charges Inpatient E&M: 51918 Subs Hosp L2 01/12/25 1651 <Electronically signed by Cielo Tovar MD> Cielo Tovar MD Cosigner Signature (if applicable): CC: ~ Signed [facility] Work Phone: 1([phone]) 120-796706-11-2025 Consult note Author Dilcia Vanessa [facility] Note Date/Time January 11, 2025 10:4 8pm [facility] Medical Records Department [address] [facility] [place] [address] Pharmacokinetic/Renal -Consult 01/11/251942 MR#: [id number] Acct: [id number] Name: FRANKLIN WIGGINS Rep #:[id number] : 1965 59 From: Dilcia Vanessa PCP: YG Pena Status:ADM I N Y Location: [place] [address] Consult Antibiotic Management Pharmacy has been consulted [...] Dilcia montalvo> Date _ Dilcia Vanessa 01/11/25 870 <Electronically signed by Yaritza Holland> Cosigner Signature (if applicable): Date Yaritza Leo DO CC: ~ Signed [facility] Work Phone: [phone]) 198-202806-10-2025 Progress note Author Cielo Tovar [facility] Note Date/Time January 11, 2025 5:51 pm [facility] Medical Records Department [address] [place] [address] Progress Note 01/11/25 1510 MR#: [id number] Acct: [id number] Name: FRANKLIN WIGGINS Rep #:[id number] : 1965 59 From: Cielo Tovar MD PCP: YG Pena Status:ADM I N Location: [place] [address] Subjective Subjective Patient seen and examined. He [...] % (Auto) Cancelled, Lymph % (Auto) Cancelled, [place] % (Auto) Cancelled, Eos % (Auto) Cancelled, [...] Drop Cells Cancelled, Ovalocytes Cancelled, Stomatocytes Cancelled, [place] Bodies Cancelled, [place]oma Cells Cancelled, Bite Cells [...] (Auto) 69.6, Lymph % (Auto) 12.6 L, [place] % (Auto) 11.8 H, Eos % (Auto) [...] of anemia Charges/Coding Visit Charges Inpatient E&M: 44036 Subs Hosp L2 01/11/25 1751 <Electronically signed by Cielo Tovar MD> Cielo Tovar MD Cosigner Signature (if applicable): CC: ~ Signed [facility] Work Phone: 1([phone]) 838-100606-10-2025 Consult note Author Jefferson Malave [facility] Note Date/Time January 11, 2025 4:41 pm [facility] Medical Records Department [address] [place] [address] Consultation - Surgical 01/11/25 1634 MR#: [id number] Acct: [id number] Name: FRANKLIN WIGGINS Rep #:[id number] : 1965 59 From: Jefferson Malave MD PCP: YG Pena Status:ADM I N Location: [place] [address] Assessment & Plan Assessment/Plan (1) Umbilical hernia: [...] findings on CT consistent with portal hypertension. [facility] Medical History (Updated 01/11/25 @ [...] % (Auto) Cancelled, Lymph % (Auto) Cancelled, [place] % (Auto) Cancelled, Eos % (Auto) Cancelled, [...] Drop Cells Cancelled, Ovalocytes Cancelled, Stomatocytes Cancelled, [place] Bodies Cancelled, Paloma Cells Cancelled, Bite Cells [...] (Auto) 69.6, Lymph % (Auto) 12.6 L, [place] % (Auto) 11.8 H, Eos % (Auto) [...] 48 hours. Charges/Coding Visit Charges Inpatient E&M: 25833 Init Hosp L3 01/11/25 1641 <Electronically signed by Jefferson Malave MD> Cosigner Signature (if applicable): CC: YG Elias~ Signed [facility] Work Phone: 1(365) 811-852506-10-2025 Progress note Author Bola Meraz [facility] Note Date/Time January 11, 2025 9:07 am [facility] Medical Records Department [address] [place] [address] Progress Note - Maternity Nurse 01/11/25 0722 MR#: [id number] Acct: [id number] Name: FRANKLIN WIGGINS Rep #:[id number] : [...] scheduled midodrine. This note was generated with Kitchfix dictation software. It may contain incorrectwords, spelling, [...] % (Auto) Cancelled, Lymph % (Auto) Cancelled, [place] % (Auto) Cancelled, Eos % (Auto) Cancelled, [...] Drop Cells Cancelled, Ovalocytes Cancelled, Stomatocytes Cancelled, [place] Bodies Cancelled, [place] Cells Cancelled, Bite Cells Cancelled, Crenated Cell [...] (Auto) 69.6, Lymph % (Auto) 12.6 L, [place] % (Auto) 11.8 H, Eos % (Auto) [...] liver masses identified. Reading Location: [facility] Physical Exam Const alert, oriented [...] flat affect Charges/Coding Visit Charges Inpatient E&M: 95617 Subs Hosp L2 01/11/25 0907 <Electronically signed by Bola Meraz DO> Cosigner Signature (if applicable): CC: ~ Signed [facility] Work Phone: [phone]) 187-924906-10-2025 Consult note Author Boone Garcia [facility] Note Date/Time January 11, 2025 2:14 am [facility] Medical Records Department [address] [place] [address] Pharmacokinetic/Renal -Consult 01/11/25 0211 MR#: [id number] Acct: [id number] Name: FRANKLIN WIGGINS Rep #:[id number] : [...] [date and time ordered]: 01/11/25 @1330 (random) 01/11/25213 <Electronically signed by Boone bower> Date _ Boone Ferguson Signature (if applicable): Date CC: ~ Signed [facility] Work Phone: 1([phone]) 147-489206-09-2025 Progress note Author [facility]o [facility] Note Date/Time January 10, 2025 6:23p [facility] Medical Records Department [address] [place] [address] Progress Note 01/10/251815 MR#: [id number] Acct: [id number] Name: ROSALIEFRANKLIN CARMELA Rep #:[id number] : 1965 59 From: Cielo Tovar MD PCP: Josy Elias ALTERATION SPECIALIST-C Status:ADM I N Location: ICU CVICU20 1-1 [...] % (Auto) Cancelled, Lymph % (Auto) Cancelled, [place] % (Auto) Cancelled, Eos % (Auto) Cancelled, [...] Drop Cells Cancelled, Ovalocytes Cancelled, Stomatocytes Cancelled, [place] Bodies Cancelled, Paloma Cells Cancelled, Bite Cells [...] 76.1 H, Lymph % (Auto) 8.8 L, [place] % (Auto) 8.2, Eos % (Auto) 5.9 [...] prophylaxis: Heparin Charges/Coding Visit Charges Inpatient E&M: 78218 [facility] Hosp 01/10/25 5272 <Electronically signed by Cielo Tovar MD> Cielo Tovar MD Cosigner Signature (if applicable): CC: ~ Signed [facility] Work Phone: 1(687) 268-814606-09-2025 Progress note Author Bola Kt [facility] Note Date/Time January 10, 2025 8:52a m [facility] Medical Records Department [address] [place] [address] Progress Note - Maternity Nurse 01/10/25 0700 MR#: [id number] Acct: [id number] Name: FRANKLIN WIGGINS Rep #:[id number] : 1965 59 From: Bola Meraz PCP: YG Pena Status:ADM I N Location: [...] scheduled midodrine. This note was generated with Kitchfix dictation software. It may contain incorrectwords, spelling, [...] 80.6 H, Lymph % (Auto) 7.2 L, [place] % (Auto) 6.7, Eos % (Auto) 4.2, [...] % (Auto) Cancelled, Lymph % (Auto) Cancelled, [place] % (Auto) Cancelled, Eos % (Auto) Cancelled, [...] Drop Cells Cancelled, Ovalocytes Cancelled, Stomatocytes Cancelled, [place] Bodies Cancelled, [place] Cells Cancelled, Bite Cells Cancelled, Crenated Cell [...] 76.1 H, Lymph % (Auto) 8.8 L, [place] % (Auto) 8.2, Eos % (Auto) 5.9 [...] liver masses identified. Reading Location: [facility] Physical Exam Const alert, oriented [...] flat affect Charges/Coding Visit Charges Inpatient E&M: 99253 Subs Hosp L3 01/10/25 0852 <Electronically signed by Bola Meraz DO> Cosigner Signature (if applicable): CC: ~ Signed [facility] Work Phone: [phone]) 387-912306-08-2025 Consult note Author Lupillo Robbins [facility] Note Date/Time January 09, 2025 8:03p m [facility] Medical Records Department [address] [facility] [place] [address] Consultation - Maternity Nurse 01/09/25 1836 MR#: [id number] Acct: [id number] Name: FRANKLIN WIGGINS Rep #:[id number] : [...] 12-point ROS negative except as per HPI [facility] Medical History (Updated 01/09/25 @ [...] Atorvastatin Calcium 40 Mg Tablet PO DAILY [facility] Calcium/Vitamin D 1 tablet 01/10/25 10:00 Calcium Carb/Vitamin D 1 Tablet Tablet PO DAILY [facility] Cyclobenzaprine HCl 10 mg 01/09/25 22:00 Cyclobenzaprine Hcl 10 Mg Tablet PO QHS [facility] Ferrous Sulfate 325 mg 01/10/25 12:00 Ferrous Sulfate 325 Mg Tablet PO Q48@1200 [facility] Folic Acid 1 mg 01/10/25 08:00 Folic Acid 1 Mg Tablet PO BREAKFAST [facility] Guaifenesin 10 ml 01/09/25 15:46 Guaifenesin 10 Ml Udc (200mg/10ml) PO Q4H PRN PRN COUGH Heparin Sodium (Porcine) 5,000 unit 01/09/25 22:00 Heparin Injection (Vial) 5,000 Unit/Ml Vial SC Q8 KRYSTIN Sodium Chloride 250 mls @ 15 mls/hr 01/09/25 15:34 IV .[id number] PRN Saline Flush Sodium Chloride 250 mls @ 15 mls/hr 01/09/25 15:34 IV .[id number] PRN Additional IVPB Infusion Norepinephrine Bitartrate 8 mg 250 mls @ 9.375 mls/hr 01/09/25 15:46 01/09/2515:56 / Sodium Chloride CONT INF Not Given .[id number] [facility] Protocol 5 MCG/MIN Vancomycin IV-PHARMACY [...] 80.6 H, Lymph % (Auto) 7.2 L, [place] % (Auto) 6.7, Eos % (Auto) 4.2, [...] hypertension. No liver masses identified. Reading [facility] Assessment and Plan . Assessment [...] Robbins MD> Cosigner Signature (if applicable): CC: ALTERATION SPECIALIST-C Josy Elias~ Signed [facility] Work Phone: [phone] 170-403206-08-2025 Consult note Author Peter Carvajal [facility] Note Date/Time January 09, 2025 5:42p [facility] Medical Records Department [address] [place] [address] Pharmacokinetic/Renal -Consult 01/09/25 1602 MR#: [id number] Acct: [id number] Name: FRANKLIN WIGGINS CARMELA Rep #:[id number] : 1965 59 From: [...] 1742 <Electronically signed by Yaritza Lucero O> Eduardoigner Signature (if applicable): Date Yaritza Leo DO CC: ~ Signed [facility] Work Phone: [phone] 181-790406-08-2025 History and physical note Author Yaritza Leo [facility] Note Date/Time January 09, 2025 5:41p m [facility] Medical Records Department [address] [place] [address] H&P Exam - Hospitalist 01/09/25 1408 MR#: [id number] Acct: [id number] Name: FRANKLIN WIGGINS Rep #:[id number] : 1965 59 From: Yaritza Leo DO PCP: YG Pena Status:ADM I N Location: ICU CVICU20 1- HPI - General General Date of Admission: 01/09/25 Date of Service: 01/09/25 Chief Complaint: Suprapubic abdominal pain HPI Narrative FRANKLIN WIGGINS, is a 59 M who presented to the emergency department [facility] on 01/09/2025 due to back pain [...] medical history and currently resides at an [facility]. He denies any fever or chills. He [...] a repeat of 89/59 and pulse ox gvm264% on room air. CBC showed a leukocytosis [...] he was treated with 30 cc/kg bolus. [facility] Medical History (Updated 01/09/25 @ [...] 80.6 H, Lymph % (Auto) 7.2 L, [place] % (Auto) 6.7, Eos % (Auto) 4.2, [...] hypertension. No liver masses identified. Reading [facility] Assessment & Plan Assessment/Plan (1) Sepsis: (2) [...] currently 102/60) Charges/Coding Visit Charges Inpatient E&M: 27743 Init Hosp L3 01/09/25 1741 <Electronically signed by Yaritza Leo DO> Cosigner Signature (if applicable): CC: ALTERATION SPECIALIST-Pastora Elias; Dr. Yaritza Leo DO~ Signed [facility] Work Phone: [phone]) [phone] Discharge summary [facility] Note Date/Time January 09, 2025 4:26p m [facility] Medical Records Department [address] [place] [address] Emergency Department Summary 01/09/25 MR#: [id number] Acct: [id number] Name: FRANKLIN WIGGINS Rep #:[id number] : [...] denies urinary symptoms. Patient is from a [facility] and normally ambulates with a walker. Patient has history of cirrhosis and history of diabetes as well as high cholesterol. Patient has had prior paracentesis. Currently rates his pain about a 5 out of 10. He does not want thing for pain currently. [facility] Medical History Weakness Diarrhea [...] 80.6 H Lymph % (Auto) 7.2 L [place] % (Auto) 6.7 Eos % (Auto) 4.2 [...] Clarity Turbid Urine pH 6.0 Ur Specific [place] 1.015 Urine Protein 500 H Urine Glucose [...] hypertension. No liver masses identified. Reading Location[facility] Critical Care Time Critical care time (excluding procedures): 30-74 minutes, Including time spent:,Discussing w/Patient &/or Family/Rubberizing Mechanic, Discussing w/Consultants, ArrangingAdmission or Transfer, Performing Direct [...] Primary Care Provider: Josy Elias Referrals: Josy Eilas NP-C [Primary Care Provider] - Print Language: Spanish Disposition Disposition: Acute Care Hospital [facility] What to do if you have Problems For any increased pain, shortness of breath, bleeding, nausea or vomiting, chestpain, or any unexpected problems, contact your Primary Care Provider. Call [facility] ([phone]) or report to the closest Emergency Room. Call 911 if necessary. 01/09/25 1626 <Electronically signed by Breann Mendez DO> Cosigner Signature (if applicable): CC: YG Elias ~ Signed [facility] Work Phone: 1(782) 395-592806-08-2025 Radiology Diagnostic study [facility]06-04-2025 Consult note Author Kourtney Reece [facility] Note Date/Time January 05, 2025 5:01p [facility] Medical Records Department [address] [place] [address] Counseling Note - Pharmacy 01/05/25 1447 MR#: [id number] Acct: [id number] Name: FRANKLIN WIGGINS Rep #:[id number] : 1965 59 From: Kourtney Reece PCP: YG Pena Status:ADM I N Y Location: [place] [address] Pharmacy [place] Med Reconciliation Pharmacy Service has performed discharge [...] solution (Constulose) 15 ml PO TID PRN ktipyoseyukg06/27/25 L.acidophil,salivari-Bifido bifidum-Strep thermoph 175 mg capsule 1 [...] Protocol subcut ACHS #0 mL 01/05/25 01/05/25 6887 <Electronically signed by Kourtney Reece> Date _ Kourtney Ferguson Signature (if applicable): Date CC: ~ Signed [facility] Work Phone: 1(136) 680-946506-04-2025 Discharge summary Author Hill Acuña [facility] Note Date/Time January 05, 2025 2:07p m [facility] Medical Records Department [address] [place] [address] Discharge Summary 01/05/25 1404 MR#: [id number] Acct: [id number] Name: FRANKLIN WIGGINS Rep #:[id number] : 1965 59 From: Hill Acuña MD PCP: YG Pena Status:ADM I N Location: [place] [address] Providers Date of Admission: 01/02/25 Date of [...] Secondary to multiple medical comorbidities. Transfer to assisted facility had been recommended to patient during previous hospitalization he did decline. I had a discussion with patient he is amenable to entertaining the idea of going to assisted facility. Subsequently requested for PT OT eval and social sciences professor to assist with discharge planning ? 01/03/2025; plan is to discuss with case management regarding disposition ? 01/05/2025; awaiting insurance pre-CERT prior to transfer to assisted facility ? Patient was discharged to assisted facility once insurance. 2. Severe hypokalemia ? [...] solution (Constulose) 15 ml PO TID PRN ilxziqbccppu47/27/25 L.acidophil,salivari-Bifido bifidum-Strep thermoph 175 mg capsule 1 [...] (Auto) 69.1, Lymph % (Auto) 13.4 L, [place] % (Auto) 11.6 H, Eos % (Auto) [...] in before D/C Order can be placed): Custodial Facility Charges/Coding Visit Charges Inpatient E&M: 51357 Disch Hosp >30min 01/05/25 1407 <Electronically signed by Hill Acuña MD> Cosigner Signature (if applicable): CC: YG Elias; Dr. Hill Acuña MD~ Signed [facility] Work Phone: 1(874) [phone] Discharge summary [facility] Note Date/Time January 05, 2025 2:04p [facility] Medical Records Department [address] [place] [address] Transfer to [facility] MR#: [id number] Acct: [id number] Name: FRANKLIN WIGGINS Rep #:[id number] : 1965 59 From: Hill Acñua MD PCP: YG Pena Status:ADM I N Certification of patient admission REQUIRED AT TIME OF ADMISSION. I CERTIFY THAT POST-HOSPITAL F SERVICES ARE REQUIRED TO BE GIVEN ON AN IN-PATIENT BASIS BECAUSE OF THE ABOVE NAMED PATIENT'S NEED FOR LONG-TERM CARE ON A CONTINUING BASIS FOR THE CONDITION(S) FOR WHICH HE/SHE WAS RECEIVING IN-PATIENT HOSPITAL SERVICES PRIOR TO HIS/HER TRANSFER TO THE [facility]. 01/05/25 1404<Electronically signed by Hill Acuña MD> [...] Secondary to multiple medical comorbidities. Transfer to assisted facility had been recommended to patient during previous hospitalization he did decline. I had a discussion with patient he is amenable to entertaining the idea of going to assisted facility. Subsequently requested for PT OT eval and social sciences professor to assist with discharge planning ? 01/03/2025; plan is to discuss with case management regarding disposition ? 01/05/2025; awaiting insurance pre-CERT prior to transfer to assisted facility 2. Severe hypokalemia ? Patient potassium [...] in before D/C Order can be placed): Custodial Facility 01/05/25 1404 <Electronically signed by Hill Acuña MD> Cosigner Signature (if applicable): CC: YG Elias; Dr. Buster Fuchs MD ~ [facility] Work Phone: 1(442) 135-748806-04-2025 Progress note Author Hill Acuña [facility] Note Date/Time January 05, 2025 11:01 am [facility] Medical Records Department [address] [place] [address] Progress Note - Hospitalist 01/05/25 0737 MR#: [id number] Acct: [id number] Name: FRANKLIN WIGGINS Rep #:[id number] : 1965 59 From: Hill Acuña MD PCP: YG Pena Status:ADM I N Location: [place] [address] Reason for Visit Reason for Visit: Diagnoses Acute kidney failure, unspecified (01/02/25) Unspecified fall, initial encounter (01/02/25) Subjective Subjective Patient seen blood glucose control not optimal further adjustment made to patient insulin regimen. Patient awaiting insurance precertification prior to transfer to assisted [facility] Objective Data Objective Data [...] (Auto) 69.1, Lymph % (Auto) 13.4 L, [place] % (Auto) 11.6 H, Eos % (Auto) [...] Secondary to multiple medical comorbidities. Transfer to assisted facility had been recommended to patient during previous hospitalization he did decline. I had a discussion with patient he is amenable to entertaining the idea of going to assisted facility. Subsequently requested for PT OT eval and social sciences professor to assist with discharge planning ? 01/03/2025; plan is to discuss with case management regarding disposition ? 01/05/2025; awaiting insurance pre-CERT prior to transfer to assisted facility 2. Severe hypokalemia ? Patient potassium [...] SCDs for Charges/Coding Visit Charges Inpatient E&M: 24947 Subs Hosp L2 01/05/25 1101 <Electronically signed by Hill Acuña MD> Cosigner Signature (if applicable): CC: ~ Signed [facility] Work Phone: 1(683) 967-514906-03-2025 Progress note Author Hill Acuña [facility] Note Date/Time January 04, 2025 10:18 am [facility] Medical Records Department [address] [place] [address] Progress Note - Hospitalist 01/04/25 1014 MR#: [id number] Acct: [id number] Name: FRANKLIN WIGGINS Rep #:[id number] : 1965 59 From: Hill Acuña MD PCP: Josy Elias ALTERATION SPECIALIST-Pastora Status:ADM I N Location: [place] [address] Reason for Visit Reason for Visit: Diagnoses [...] Secondary to multiple medical comorbidities. Transfer to assisted facility had been recommended to patient during previous hospitalization he did decline. I had a discussion with patient he is amenable to entertaining the idea of going to assisted facility. Subsequently requested for PT OT eval and social sciences professor to assist with discharge planning ? 01/03/2025; [...] SCDs for Charges/Coding Visit Charges Inpatient E&M: 13889 Subs Hosp L2 01/04/25 1018 <Electronically signed by Hill Acuña MD> Cosigner Signature (if applicable): CC: ~ Signed [facility] Work Phone: 1(705) 133-875906-02-2025 Progress note Author [facility] Note Date/Time January 03, 2025 9:52a [facility] Medical Records Department [address] [place] [address] Progress Note - Hospitalist 01/03/25 0839 MR#: [id number] Acct: [id number] Name: FRANKLIN WIGGINS Rep #:[id number] : 1965 59 From: Hill Acuña MD PCP: YG Pena Status:ADM I N Location: [place] [address] Reason for Visit Reason for Visit: Diagnoses [...] (Auto) 67.5, Lymph % (Auto) 13.9 L, [place] % (Auto) 11.5 H, Eos % (Auto) [...] Secondary to multiple medical comorbidities. Transfer to assisted facility had been recommended to patient during previous hospitalization he did decline. I had a discussion with patient he is amenable to entertaining the idea of going to assisted facility. Subsequently requested for PT OT eval and social sciences professor to assist with discharge planning ? 01/03/2025; [...] SCDs for Charges/Coding Visit Charges Inpatient E&M: 61620 Subs Hosp L2 01/03/25 0952 <Electronically signed by Hill Acuña MD> Cosigner Signature (if applicable): CC: ~ Signed [facility] Work Phone: 1(993) 251-351506-01-2025 Progress note Author Hill Acuña [facility] Note Date/Time January 02, 2025 9:58a m [facility] Medical Records Department [address] [place] [address] Progress Note - Hospitalist 01/02/25 0736 MR#: [id number] Acct: [id number] Name: FRANKLIN WIGGINS Rep #:[id number] : 1965 59 From: Hill Acuña MD PCP: YG Pena Status:ADM I N Location: [place] [address] Reason for Visit Reason for Visit: Diagnoses Acute kidney failure, unspecified (01/02/25) Unspecified fall, initial encounter (01/02/25) Subjective Subjective Patient is a 59-year-old gentleman with recent multiple hospitalization presented to the emergency department with progressive generalized weakness and vomiting. This was apparently his third visit to the ED within a week. Patienthad been encouraged to be discharged to a assisted facility he however declined. Objective Data Objective [...] (Auto) 68.0, Lymph % (Auto) 12.2 L, [place] % (Auto) 11.9 H, Eos % (Auto) [...] insufficiency fracture again noted, unchanged. Reading Location: [id number] Brain CT 01/02/25 03:55 IMPRESSION: No intracranial [...] Secondary to multiple medical comorbidities. Transfer to assisted facility had been recommended to patient during previous hospitalization he did decline. I had a discussion with patient he is amenable to entertaining the idea of going to assisted facility. Subsequently requested for PT OT eval and social sciences professor to assist with discharge planning 2. Severe [...] documentation, 38Minutes Charges/Coding Visit Charges Inpatient E&M: 29898 PROLNG IP/OBS E/M EA 15 MIN Multi Select Codes Visit Charges Visit Charges: 77714 PROLNG IP/OBS E/M EA 15 MIN 01/02/25 0958 <Electronically signed by Hill Acuña MD> Cosigner Signature (if applicable): CC: ~ Signed [facility] Work Phone: 1(646) 599-250806-01-2025 History and physical note Author Buster Fuchs [facility] Note Date/Time January 02, 2025 6:44a m [facility] Medical Records Department [address] [place] [address] H&P Exam - Hospitalist 01/02/25 0556 MR#: [id number] Acct: [id number] Name: FRANKLIN WIGGINS Rep #:[id number] : 1965 59 From: Buster duarte MD PCP: YG Pena Status:ADM I N Location: [place] [address] HPI - General General Date of Admission: [...] that time he was transferred to [facility] 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 Was not considered to be a liver transplant candidate and was placed on anticoagulation. He has had a couple of readmissions for weakness and debility. [place] to possibly have aUTI given a staghorn [...] Heis receiving potassium infusion in the ER. [facility] Medical History Weakness Diarrhea Sepsis [...] (Auto) 68.0, Lymph % (Auto) 12.2 L, [place] % (Auto) 11.9 H, Eos % (Auto) [...] once verified Charges/Coding Visit Charges Inpatient E&M: 08566 Init Hosp L2 01/02/25 0644 <Electronically signed by Buster Fuchs MD> Cosigner Signature (if applicable): CC: YG Elias; Dr. Buster Fuchs MD~ Signed [facility] Work Phone: 1(622) 470-257106-01-2025 Evaluation note* Diagnosis Onset Date Resolution Status [...] Hepatic encephalopathy acute Se ptember 2024 11:18pm [facility] Work Phone: 1(716) 422-589806-01-2025 Evaluation note* Diagnosis Onset Date Resolution Status [...] pam 2024 6:26pm Elevated liver enzymes inactive ly 2024 6:26pm History of diabetes mellitus [...] Hepatic encephalopathy acute Se ptember 2024 9:24pm [facility] Work Phone: 1([phone]) 417-143406-01-2025 Discharge summary Author Roddy Reeves [facility] Note Date/Time January 02, 2025 6:00a m [facility] Medical Records Department [address] [place] [address] Emergency Department Summary 01/02/25 MR#: [id number] Acct: [id number] Name: FRANKLIN WIGGINS Rep #:[id number] : 1965 59 From: Roddy Reeves DO PCP: Josy Elias ALTERATION SPECIALIST-C Status:REG E R Location: ED HPI History [...] was here recently and was sent home. [facility] Medical History Weakness Diarrhea [...] mg tablet (Xifaxan) 550 mg PO BID [facility] ea #60 tabs 09/02/24 11/28/24 Rx insulin [...] Patient following commands that he was at [facility] that wewere in the end of [...] (Auto) 68.0 Lymph % (Auto) 12.2 L [place] % (Auto) 11.9 H Eos % (Auto) [...] Clarity Turbid Urine pH 6.0 Ur Specific [place] 1.015 Urine Protein 100 H Urine Glucose [...] NP-C [Primary Care Provider] - Print Language: Spanish Disposition Disposition: Acute Care Hospital [facility] What to do if you have Problems For any increased pain, shortness of breath, bleeding, nausea or vomiting, chestpain, or any unexpected problems, contact your Primary Care Provider. Call [facility] ([phone]) or report to the closest Emergency Room. Call 911 if necessary. 01/02/25 0600 <Electronically signed by Roddy Reeves DO> Cosigner Signature (if applicable): CC: YG Elias ~ Signed [facility] Work Phone: 1(705) 667-580206-01-2025 Radiology [facility] study [facility]-01-20[facility] Rad[facility]-01-2025 Radiology Diagnostic study [facility] 12-30-2024 Radiology Diagnostic study [facility]05-25-2025 Radiology [facility]-14-2025 Radiology Diagnostic [facility]04-20-2025 Radiology Diagnostic [facility]04-17-2025 Telephone encounter Note* Telephone Encounter - Marah [...] will be scheduled to follow up with [facility]. JEANNINE asked that Dr. Mosley inform this pt that he can return to our transplant center again and be re-evaluated once he has addressed his prohibitive psychosocial concerns (lack of caregivers, unstable housing, unstable finances, unreliable transportation). Dr. Mosley agreed to do so. [facility] Work Phone: [phone]) 795-800904-17-2025 Miscellaneous Notes* Telephone Encounter - Marah Arauz [...] will be scheduled to follow up with [facility]. JEANNINE asked that Dr. Mosley inform this pt that he can return to our transplant center again and be re-evaluated once he has addressed his prohibitive psychosocial concerns (lack of caregivers, unstable housing, unstable finances, unreliable transportation). Dr. Mosley agreed to do so. documented in this encounterPremier Health [facility]04-17-2025 Telephone encounter Note * Telephone Encounter - Jeremi Abreu RN - 11/18/2024 10:01 AM EDT Inpatient hepatology team spoke with Franklin Chapa Rosalie to advise him that his case was discussedat liver transplant selection committee on 11/17/2024 and he was declined for liver transplant due to social issues that include unstable housing, lack of income, lack of caregivers and lack of transportation. . Jeremi Abreu RN, BSN Liver Bone Glue Maker [facility] Work Phone: [phone]) 425-632604-17-2025 Miscellaneous Notes* Telephone Encounter - Jeremi Abreu [...] transportation. . Jeremi Abreu RN, BSN Liver Bone Glue Maker documented in this encounterPremier Health [facility]04-17-2025 [facility]04-17-2025 NoteH[facility]04-16-2025 NoteH[facility]04-16-2025 NoteH[facility]04-16-2025 Note [facility]04-15-2025 NoteH[facility]04-15-2025 NoteH[facility]04-15-2025 NoteH[facility] 11-15-2024 NoteH[facility]04-14-2025 NoteH[facility]04-14-2025 NoteH[facility]04-14-2025 History of Present illness Narrative* Marah [...] 15, 2024 2:35 PM documented in this encounterPremier Health [facility]04-14-2025 NoteH[facility]04-14-2025 History of Present illness Narrative* Virgil Farley DDS - 11/15/2024 1:48 PM EDTSummary: Liver Transplant Dental Bedside Clearance See inpatient note for this encounter on 11/15/2024. Virgil Farley DDS documented in this encounterPremier Health [facility]04-14-2025 NoteH[facility]04-13-2025 NoteH[facility]04-12-2025 NoteH[facility]04-11-2025 History of Present illness Narrative* Lizett [...] mg capsule(s) rifAXIMin 550 mg tab(s) (XIFAXAN) qkfuxol-iogddnspp-yrspgdd D3 500 mg-5 mcg (200 unit) 1 [...] Guzman, PharmJazmine [facility] Clinical Specialist Pager: [phone] documented in this encounterPremier Health [facility]04-11-2025 NoteH[facility]04-11-2025 NoteH[facility]04-11-2025 History of Present illness Narrative* Jeremi Abreu RN - 11/12/2024 2:52 PM EDT The following information has been provided/discussed with the patient/family during Shared MedicalAppointment education class: Informed Consent for Organ Transplant Program Participation version February 20, 2023. SRTR information provided and questions answered. Informed patient to call behavioral therapy coordinator with any questions. UNOS information regarding [...] also addressed Patient was provided with [facility] information sheet regarding transplantation of HepatitisC [...] LIMITATIONS AFFECTING LEARNING: None LEARNING RESPONSE DIAGNOSIS: [facility] METHOD OF INSTRUCTION: Verbal instruction Video PATIENT / FAMILY RESPONSE: Information received as demonstrated by interest and questions FOLLOW-UP PLAN: Contact information given. SUPPLEMENTAL MATERIAL: None REFERRAL (RECOMMENDATION): None Electronically Signed By: Jeremi Abreu RN In Department: TRANSPLANT CENTER documented in this encounterPremier Health [facility]04-11-2025 NoteH[facility]04-11-2025 History of Present illness Narrative* Marah [...] 12, 2024 1:16 PM documented in this encounterPremier Health [facility]04-11-2025 Miscellaneous Notes* Telephone Encounter - Jeremi Abreu RN - 11/12/2024 12:08 PM EDT INFORMED CONSENT Franklin Wiggins Medical Record: [id number] Informed consent for Organ Transplant Program Participation [...] questions answered. Jeremi Abreu RN, BSN Liver Bone Glue Maker documented in this encounterPremier Health [facility]04-11-2025 Telephone encounter Note * Telephone Encounter - Jeremi Abreu RN - 11/12/2024 12:08 PM EDT INFORMED CONSENT Franklin Wiggins Medical Record: [id number] Informed consent for Organ Transplant Program Participation [...] questions answered. Jeremi Abreu RN, BSN Liver Bone Glue Maker [facility] Work Phone: 1(330) 140-544804-11-2025 NoteHocking Valley [facility]04-11-2025 NoteHNO ID: [id number] Author: KIRTI VELÁSQUEZ RN Service: Nursing Author Type: Registered Nurse Type: Nursing Progress Note Filed: 11/12/2024 00:58 Note Text: Other: PTTAC-no clot detected at 320-heparin gtt stopped-need futher orders-second mate notifiedHocking Valley Community Hospital04-10-2025 NoteH[facility] 11-11-2024 NoteH[facility]04-10-2025 NoteH[facility]04-09-2025 Discharge summary Author Kathie Powers [facility] Note Date/Time November 10, 2024 8:42 pm [facility] Medical Records Department [address] [place] [address] Discharge Summary 11/10/241936 MR#: [id number] Acct: [id number] Name: FRANKLIN WIGGINS Rep #:[id number] : [...] Method of Notification: Verbal 10/29/24 01:47 Consult: Maternity Nurse / Pulmonary Medicine Routine Consulting Provider: Intensivists/Pulmonary Med Reason for Consult: Sepsis, UTI, Diarrhea, Abdominal Pain and Back Pain. EMERGENT Consult: No MD Notified: Yes Date Notified: 10/29/24 Time Notified: 04:58 Method of Notification: Text 10/30/24 03:54 Consult: Gastroenterology Routine Consulting Provider: [facility] Reason for Consult: BOYER, elevated ammonia EMERGENT Consult: No MD Notified: Yes Date Notified: 10/30/24 Time Notified: 07:31 Method of Notification: Text 11/09/24 21:26 Consult: Gastroenterology Routine Consulting Provider: [facility] Reason for Consult: cirrhosis,ascites,splenic thrombosis, low [...] diabetes, staghorn colliculi, cirrhosis who presented to [facility] ED 10/29/2024 with sepsis and was [...] was in agreement. Reach out to [facility] and ultimately patient was accepted by the key sander Dr. Neal. Patient with bed assignment 11/10, patient to be transferred to [facility] Physical Exam Narrative General: Sleeping but [...] 83.0 H, Lymph % (Auto) 6.6 L, [place] % (Auto) 6.9, Eos % (Auto) 1.9, [...] Clarity Turbid, Urine pH 6.5, Ur Specific [place] 1.015, Urine Protein 500 H, Urine Glucose [...] Garza; Zachariah Glover; Scott Weston; Yue Delgadillo ALTERATION SPECIALIST Discharge Orders/Prescriptions Prescriptions: No Action lidocaine 5 [...] or pain) [facility] - In 1 Week Care Physician,No Primary [Primary Care Provider] - Disposition Disposition (needs filled in before D/C Order can be placed): Acute Care Hospital Charges/Coding Visit Charges Inpatient E&M: 64418 Disch Hosp >30min 11/10/242041 <Electronically signed by Kathie Powers MD> Cosigner Signature (if applicable): CC: Dr. Kathie Powers MD; No Primary Care Physician~ Signed [facility] Work Phone: 1(953) 349-313504-09-2025 Discharge summary Author Kathie Powers [facility] Note Date/Time November 10, 2024 7:37 pm [facility] Medical Records Department [address] [place] [address] Instructions for Home/Discharge Instructions 11/10/241935 MR#: [id number] Acct: [id number] Name: FRANKLIN WIGGINS Rep #:[id number] : [...] Garza; Zachariah Glover; Scott Weston; Yue Delgadillo ALTERATION SPECIALIST Discharge Orders/Prescriptions Prescriptions: No Action lidocaine 5 [...] fever or pain) [facility] - [facility] Week Care Physician,No Primary [Primary Care Provider] - Disposition Disposition (needs filled in before D/C Order can be placed): [facility] 11/10/241936<Electronically signed by Kathie Powers MD>Kathie Powers MD CC: ALTERATION SPECIALIST-Pastora Delgadillo; Dr. Hill Herrmann MD; Dr. Hill Acuña MD; Dr. Hill Caro DO; Dr. Thiago Wray MD; Dr. Blair Cage MD; Dr. Foster Gresham MD; Dr. Gabbi Hughes MD; Dr. Buster Fuchs MD; Dr. Thai Godfrey MD; Dr. Zachariah Glover MD; Dr. Juan Daniel Garza MD; Dr. Scott Weston DO; No Primary Care Physician ~ Signed [facility] Work Phone: 1(160) 232-378704-09-2025 Consult note Author Foster Rascon [facility] Note Date/Time November 10, 2024 8:59 am [facility] Medical Records Department [address] [place] [address] Consultation 11/10/24 0857 MR#: [id number] Acct: [id number] Name: FRANKLIN WIGGINS Rep #:[id number] : 1965 59 From: Foster Rascon MD PCP: Care Physician,No Primary Status :ADM IN Location: [place] [address] Consult Date of Consult: 11/10/24 59-year-old male [...] applicable): CC: No Primary Care Physician~ Signed [facility] Work Phone: 1(215) 871-219704-08-2025 Progress note Author Kathie Powers [facility] Note Date/Time November 09, 2024 9:26 pm [facility] Medical Records Department [address] [place] [address] Progress Note - Hospitalist 11/09/242120 MR#: [id number] Acct: [id number] Name: FRANKLIN WIGGINS Rep #:[id number] : 1965 59 From: Kathie Powers MD PCP: Care Physician,No Primary Status :ADM IN Location: [place] [address] scan w/ ascites and [...] will c/s GI. 11/09/242125 <Electronically signed by Ktahie Powers MD> Cosigner Signature (if applicable): CC: ~ Signed [facility] Work Phone: 1(563) 822-218004-08-2025 Progress note Author Kathie Powers [facility] Note Date/Time November 09, 2024 6:54 pm [facility] Medical Records Department [address] [place] [address] Progress Note - Hospitalist 11/09/24 1850 MR#: [id number] Acct: [id number] Name: FRANKLIN WIGGINS Rep #:[id number] : 1965 59 From: Kathie Powers MD PCP: Care Physician,No Primary Status :ADM IN Location: [place] [address] Reason for Visit Reason for Visit: Diagnoses [...] 79.1 H, Lymph % (Auto) 8.2 L, [place] % (Auto) 8.1, Eos % (Auto) 3.0, [...] with interval NG tube removal. Reading Location: [facility] Rhythm Strip Rhythm Strip: Sinus Rhythm [...] 42 Minutes Charges/Coding Visit Charges Inpatient E&M: 06560 Subs Hosp L2 11/09/24 9732 <Electronically signed by Kathie Powers MD> Cosigner Signature (if applicable): CC: ~ Signed [facility] Work Phone: 1(391) 293-202804-08-2025 Radiology Diagnostic study [facility]04-08-2025 Radiology Diagnostic study [facility]04-07-2025 Progress note Author Kathie Powers [facility] Note Date/Time November 08, 2024 6:26 pm [facility] Medical Records Department [address] [place] [address] Progress Note - Hospitalist 11/08/24 1441 MR#: [id number] Acct: [id number] Name: FRANKLIN WIGGINS Rep #:[id number] : 1965 59 From: Kathie Powers MD PCP: Care Physician,No Primary Status :ADM IN Location: [place] [address] Reason for Visit Reason for Visit: Diagnoses [...] 56 Minutes Charges/Coding Visit Charges Inpatient E&M: 27911 Subs Hosp L3 11/08/24 1503 <Electronically signed [...] Cosigner Signature (if applicable): cc: ~* Signed [facility] Work Phone: 1(940) 552-410604-06-2025 Progress note Author Hill Acuña [facility] Note Date/Time November 07, 2024 10:3 8am [facility] Medical Records Department [address] [place] [address] Progress Note - Hospitalist 11/07/24912 MR#: [id number] Acct: [id number] Name: FRANKLIN WIGGINS Rep #:[id number] : 1965 59 From: Hill Acuña MD PCP: Care Physician,No Primary Status :ADM IN Location: [place] [address] Reason for Visit Reason for Visit: Diagnoses [...] 81.5 H, Lymph % (Auto) 6.9 L, [place] % (Auto) 6.9, Eos % (Auto) 2.3, [...] Requested for PT OT eval and social sciences professor to assist with discharge planning ? 11/05/2024; plan is for patient to be discharged home when medically stable. Patient does not qualify for home health as he currently does not have a primarycare physician he has been given a referral to [facility] 1 Time spent in the patient's overall evaluation,decision-making process, review of diagnostic data, adjustment of management, discussion with other providers, nursing nursing and ancillary staff involved in patient's care documentation, 36 Minutes Charges/Coding Visit Charges Inpatient E&M: 10823 Subs Hosp L2 11/07/24 1038 <Electronically signed by Hill Acuña MD> Cosigner Signature (if applicable): CC: ~ Signed [facility] Work Phone: 1(168) 232-762304-05-2025 Progress note Author Hill Acuña [facility] Note Date/Time November 06, 2024 10:5 7am [facility] Medical Records Department [address] [place] [address] Progress Note - Hospitalist 11/06/24 0756 MR#: [id number] Acct: [id number] Name: FRANKLIN WIGGINS Rep #:[id number] : 1965 59 From: Hill Acuña MD PCP: Care Physician,No Primary Status :ADM IN Location: [place] [id number]- 1 Reason for Visit Reason for Visit: [...] Requested for PT OT eval and social sciences professor to assist with discharge planning ? 11/05/2024; plan is for patient to be discharged home when medically stable. Patient does not qualify for home health as he currently does not have a primarycare physician he has been given a referral to [facility] 1 Time spent in the patient's overall evaluation,decision-making process, review of diagnostic data, adjustment of management, discussion with other providers, nursing nursing and ancillary staff involved in patient's care documentation, 36 Minutes Charges/Coding Visit Charges Inpatient E&M: 66415 Subs Hosp L2 11/06/24 1057 <Electronically signed by Hill Acuña MD> Cosigner Signature (if applicable): CC: ~ Signed [facility] Work Phone: 1(619) 787-377404-04-2025 Progress note Author [facility] Note Date/Time November 05, 2024 9:26 am [facility] Medical Records Department [address] [place] [address] Progress Note - Hospitalist 11/05/24 0924 MR#: [id number] Acct: [id number] Name: FRANKLIN WIGGINS Rep #:[id number] : 1965 59 From: Hill Acuña MD PCP: Care Physician,No Primary Status :ADM IN Location: [place] [address] Reason for Visit Reason for Visit: Diagnoses [...] 81.0 H, Lymph % (Auto) 6.7 L, [place] % (Auto) 7.1, Eos % (Auto) 2.3, [...] Requested for PT OT eval and social sciences professor to assist with discharge planning ? 11/05/2024; plan is for patient to be discharged home when medically stable. Patient does not qualify for home health as he currently does not have a primarycare physician he has been given a referral to [facility] 1 Time spent in the patient's overall evaluation,decision-making process, review of diagnostic data, adjustment of management, discussion with other providers, nursing nursing and ancillary staff involved in patient's care documentation, 38 Minutes Charges/Coding Visit Charges Inpatient E&M: 26749 Subs Hosp L2 11/05/24 0926 <Electronically signed by Hill Acuña MD> Cosigner Signature (if applicable): CC: ~ Signed [facility] Work Phone: 1(404) 353-536604-03-2025 Progress note Author [facility] Note Date/Time November 04, 2024 11:5 0am [facility] Medical Records Department [address] [place] [address] Progress Note - Hospitalist 11/04/24 1105 MR#: [id number] Acct: [id number] Name: FRANKLIN WIGGINS Rep #:[id number] : 1965 59 From: Hill Acuña MD PCP: Care Physician,No Primary Status :ADM IN Location: [place] [address] Reason for Visit Reason for Visit: Diagnoses [...] 83.6 H, Lymph % (Auto) 4.9 L, [place] % (Auto) 5.9, Eos % (Auto) 1.1, [...] Requested for PT OT eval and social sciences professor to assist with discharge planning Time spent in the patient's overall evaluation,decision-making process, review of diagnostic data, adjustment of management, discussion with other providers, nursing nursing and ancillary staff involved in patient's care documentation, 38 Minutes Charges/Coding Visit Charges Inpatient E&M: 41435 Subs Hosp L2 11/04/24 1150 <Electronically signed by Hill Acuña MD> Cosigner Signature (if applicable): CC: ~ Signed [facility] Work Phone: 1(257) 748-722004-03-2025 Progress note Author [facility] Note Date/Time November 04, 2024 6:43 am [facility] Medical Records Department [address] [place] [address] Progress Note - Hospitalist 11/04/24 0642 MR#: [id number] Acct: [id number] Name: FRANKLIN WIGGINS Rep #:[id number] : 1965 59 From: Maria Guadalupe Shore MD PCP: Care Physician,No Primary Status :ADM IN Location: [place] [address] Hospitalist Note Patient with 15 beat asymptomatic VT. Electrolytes recently checked, mag normal range, K normal range. 11/04/24 0643 <Electronically signed by Maria Guadalupe Shore MD> Cosigner Signature (if applicable): CC: ~ Signed [facility] Work Phone: 1(430) 469-643704-03-2025 Progress note Author [facility] Note Date/Time November 03, 2024 10:3 8pm [facility] Medical Records Department [address] [place] [address] Progress Note - Hospitalist 11/03/242236 MR#: [id number] Acct: [id number] Name: FRANKLIN WIGGINS Rep #:[id number] : 1965 59 From: Maria Guadalupe Shore MD PCP: Care Physician,No Primary Status :ADM IN Location: [place] [address] Hospitalist Note Patient with mildly tachycardia through the late afternoon and evening. Will administer 500 cc bolus and reassess. From review of medications not normally onBB therapy. 11/03/242237 <Electronically signed by Maria Guadalupe Shore MD> Cosigner Signature (if applicable): CC: ~ Signed [facility] Work Phone: 1(655) 931-661404-02-2025 Progress note Author Hill Acuña [facility] Note Date/Time November 03, 2024 10:2 7am [facility] Medical Records Department [address] [place] [address] Progress Note - Hospitalist 11/03/24 1025 MR#: [id number] Acct: [id number] Name: FRANKLIN WIGGINS Rep #:[id number] : 1965 59 From: Hill Acuña MD PCP: Care Physician,No Primary Status :ADM IN Location: [place] [address] Reason for Visit Reason for Visit: Diagnoses [...] Requested for PT OT eval and social sciences professor to assist with discharge planning Time spent in the patient's overall evaluation,decision-making process, review of diagnostic data, adjustment of management, discussion with other providers, nursing nursing and ancillary staff involved in patient's care documentation, 38 Minutes Charges/Coding Visit Charges Inpatient E&M: 78277 Subs Hosp L2 11/03/24 1027 <Electronically signed by Hill Acuña MD> Cosigner Signature (if applicable): CC: ~ Signed [facility] Work Phone: 1([phone]) 378-489904-01-2025 Progress note Author Hill Acuña [facility] Note Date/Time November 02, 2024 10:0 5am [facility] Medical Records Department [address] [facility] [place] [address] Progress Note - Hospitalist 11/02/24 0804 MR#: [id number] Acct: [id number] Name: FRANKLIN WIGGINS Rep #:[id number] : 1965 59 From: Hill Acuña MD PCP: Care Physician,No Primary Status :ADM IN Location: [place] [address] Reason for Visit Reason for Visit: Diagnoses [...] 50 Minutes Charges/Coding Visit Charges Inpatient E&M: 18667 Subs Hosp 11/02/24 1005 <Electronically signed by Hill Acuña MD> Cosigner Signature (if applicable): CC: ~ Signed [facility] Work Phone: 1(644) 831-885703-31-2025 Progress note Author Hill Acuña [facility] Note Date/Time November 01, 2024 11: 41am [facility] Medical Records Department [address] [place] [address] Progress Note - Hospitalist 11/01/24 1128 MR#: [id number] Acct: [id number] Name: FRANKLIN WIGGINS Rep #:[id number] : 1965 59 From: Hill Acuña MD PCP: Care Physician,No Primary Status :ADM IN Location: [place] [address] Reason for Visit Reason for Visit: Diagnoses [...] Differential Comment SCANNED, Diff Path Review May , Platelet Estimate ADEQUATE, Anisocytosis 1+, Sodium 135, [...] 50 Minutes Charges/Coding Visit Charges Inpatient E&M: 29577 Subs Hosp 11/01/24 1141 <Electronically signed by Hill Acuña MD> Cosigner Signature (if applicable): CC: ~ Signed [facility] Work Phone: 1([phone]) [phone] Progress note Author Niranjan Friend [facility] Note Date/Time November 01, 2024 8:4 4am [facility] Medical Records Department [address] [place] [address] Progress Note 11/01/24 0836 MR#: [id number] Acct: [id number] Name: FRANKLIN WIGGINS Rep #:[id number] : 1965 59 From: Niranjan Li DO PCP: Care Physician,No Primary Status :ADM IN Location: [place] [address] Progress Note Patient has a little bit [...] doses of vancomycin. Visit Charges Inpatient E&M: 60335 Subs Hosp L3 11/01/24 0844 <Electronically signed by Niranjan Friend > Niranjan Li DO Cosigner Signature (if applicable): CC: ~ Signed [facility] Work Phone: 1(532) 356-320603-31-2025 Consult note Author Ale Renee [facility] Note Date/Time November 01, 2024 6:1 1am [facility] Medical Records Department [address] [place] [address] Pharmacokinetic/Renal -Consult 11/01/24 0604 MR#: [id number] Acct: [id number] Name: FRANKLIN WIGGINS Rep #:[id number] : 1965 59 From: Ale Renee PCP: Care Physician,No Primary Status :ADM IN Y Location: [facility] [place] [address] Consult Antibiotic Management Pharmacy has been consulted [...] Date Hill Caro DO CC: ~ Signed [facility] Work Phone: [phone]) 160-660703-30-2025 Progress note Author Buster Fuchs [facility] Note Date/Time October 31, 2024 9:5 5am [facility] Medical Records Department [address] [place] [address] Progress Note - Hospitalist 10/31/24 0952 MR#: [id number] Acct: [id number] Name: FRANKLIN WIGGINS Rep #:[id number] : [...] (Auto) 80.3 H, Lymph %(Auto) 5.9 L, [place] % (Auto) 7.9, Eos % (Auto) 1.5, [...] they did add IV Flagyl ? Appreciate perinatal instructor assistance 2. Acute metabolic cephalopathy with nonalcoholic [...] DVT: SCDs Charges/Coding Visit Charges Inpatient E&M: 99608 Subs Hosp L2 10/31/24 0955 <Electronically signed by Buster Fuchs MD> Cosigner Signature (if applicable): CC: ~ Signed [facility] Work Phone: 1(888) 152-185603-30-2025 Consult note Author Foster Rascon [facility] Note Date/Time October 31, 2024 7:3 1am [facility] Medical Records Department [address] [place] [address] Consultation 10/31/24 0730 MR#: [id number] Acct: [id number] Name: FRANKLIN WIGGINS Rep #:[id number] : [...] applicable): CC: No Primary Care Physician~ Signed [facility] Work Phone: [phone]) [phone] Consult note Author Niranjan Li [facility] Note Date/Time October 30, 2024 9:3 4pm [facility] Medical Records Department [address] [place] [address] Consultation - GI 10/30/242047 MR#: [id number] Acct: [id number] Name: FRANKLIN WIGGINS Rep #:[id number] : [...] of yellow-colored fluid removed. He presented backto [facility] ER complaining of abdominal pain, back [...] He is also on Zosyn for urosepsis. [facility] Medical History Chronic hypotension Obesity [...] 85.6 H, Lymph % (Auto) 4.3 L, [place] % (Auto) 7.3, Eos % (Auto) 0.5, [...] NG tube in satisfactory position. Reading [facility] Assessment & Plan Assessment/Plan (1) [...] this admission. Charges/Coding Visit Charges Inpatient E&M: 63104 Init Hosp L3 10/30/242133 <Electronically signed by Niranjan Friend DO> Cosigner Signature (if applicable): CC: No Primary Care Physician~ Signed [facility] Work Phone: [phone]) [phone] Consult note Author Kourtney Reece [facility] Note Date/Time October 30[facility] 2024 [facility] [address] [place] [address] Pharmacokinetic/Renal -Consult 10/30/24 1552 MR#: [id number] Acct: [id number] Name: FRANKLIN WIGGINS Rep #:[id number] : [...] monitor and adjust dosing as required. 10/30/24 6837 <Electronically signed by Kourtney Reece> Date _ Kourtney Reece 10/30/24 1612 <Electronically signed by Buster hurst MD> Cosigner Signature (if applicable): Date Buster Fuchs MD CC: ~ Signed [facility] Work Phone: [phone] 611-417503-29-2025 Progress note [facility] Note Date/Time October 30, 2024 10: 45am [facility] Medical Records Department [address] [place] [address] Progress Note - Maternity Nurse 10/30/24 1037 MR#: [id number] Acct: [id number] Name: FRANKLIN WIGGINS CARMELA Rep #:[id number] : 1965 59 [...] Patch TOPICAL Not Given DAILY [facility] Protocol Midodrine 10 mg 10/29/24 02:00 [...] 85.5 H, Lymph % (Auto) 4.6 L, [place] % (Auto) 7.4, Eos % (Auto) 1.2, [...] 85.6 H, Lymph % (Auto) 4.3 L, [place] % (Auto) 7.3, Eos % (Auto) 0.5, [...] in satisfactory position. Reading Location: [facility] Assessment and Plan . Assessment [...] Cosigner Signature (if applicable): CC: ~ Signed [facility] Work Phone: [phone]) [phone] Consult note Author Foster Rascon [facility] Note Date/Time October 30, 2024 9:5 8am [facility] Medical Records Department [address] [place] [address] Consultation - Urology 10/30/24 0956 MR#: [id number] Acct: [id number] Name: FRANKLIN WIGGINS Rep #:[id number] : [...] not available on the weekend here at [facility]. We discussed transferring to other hospital for nephrostomy tube placement. We could also have a nephrostomy tube placed on Friday if radiology services are available. For now we will continue with broad-spectrum antibiotics await culture results but if things progress I think he is going to need nephrostomy tube we will continue to follow. [facility] Medical History Chronic hypotension Obesity [...] 85.5 H, Lymph % (Auto) 4.6 L, [place] % (Auto) 7.4, Eos % (Auto) 1.2, [...] 85.6 H, Lymph % (Auto) 4.3 L, [place] % (Auto) 7.3, Eos % (Auto) 0.5, [...] 3. Left-sided ureteral stent noted. Reading [facility] 10/30/24 09:11 IMPRESSION: NG tube in satisfactory position. Reading Location[facility] 10/30/2458 <Electronically signed by Foster Rascon MD> Cosigner Signature (if applicable): CC: No Primary Care Physician~ Signed [facility] Work Phone: [phone]) [phone] Progress note Author Buster Fuchs [facility] Note Date/Time October 30, 2024 8:2 9am [facility] Medical Records Department [address] [place] [address] Progress Note - Hospitalist 10/30/24819 MR#: [id number] Acct: [id number] Name: FRANKLIN WIGGINS Rep #:[id number] : [...] 85.5 H, Lymph % (Auto) 4.6 L, [place] % (Auto) 7.4, Eos % (Auto) 1.2, [...] 85.6 H, Lymph % (Auto) 4.3 L, [place] % (Auto) 7.3, Eos % (Auto) 0.5, [...] 3. Left-sided ureteral stent noted. Reading Location: [facility] Rhythm Strip Rhythm Strip: Sinus Rhythm [...] antibiotics ? Cultures are pending ? Appreciate perinatal instructor assistance 2. Acute metabolic cephalopathy with nonalcoholic [...] DVT: SCDs Charges/Coding Visit Charges Inpatient E&M: 16387 Subs Hosp L2 10/30/24 0829 <Electronically signed by Buster Fuchs MD> Cosigner Signature (if applicable): CC: ~ Signed [facility] Work Phone: [phone] Radiology Diagnostic study [facility]03-28-2025 Consult note Author Foster Rascon [facility] Note Date/Time October 29, 2024 10: 32am [facility] Medical Records Department [address] [place] [address] Consultation - Urology 10/29/24 0808 MR#: [id number] Acct: [id number] Name: FRANKLIN WIGGINS Rep #:[id number] : [...] emergency intervention is necessary from my standpoint [facility] Medical History Chronic hypotension Obesity [...] 83.0 H, Lymph % (Auto) 5.6 L, [place] % (Auto) 8.4, Eos % (Auto) 1.4, [...] vertebral body compression fracture deformities. Reading Location: [facility] 10/29/24 1032 <Electronically signed by Foster Rascon MD> Cosigner Signature (if applicable): CC: No Primary Care Physician~ Signed [facility] Work Phone: [phone]) [phone] Consult note Author Bola Meraz [facility] Note Date/Time October 29, 2024 10: 24am [facility] Medical Records Department [address] [place] [address] Consultation - Maternity Nurse 10/29/24 0744 MR#: [id number] Acct: [id number] Name: FRANKLIN WIGGINS Rep #:[id number] : [...] coverage initiated. This note was generated with Kitchfix dictation software. It may contain incorrectwords, spelling, [...] stable, without the need for vasopressor support. [facility] Medical History Chronic hypotension Obesity [...] 83.0 H, Lymph % (Auto) 5.6 L, [place] % (Auto) 8.4, Eos % (Auto) 1.4, [...] vertebral body compression fracture deformities. Reading Location: [facility] Charges/Coding Visit Charges Inpatient E&M: 49262 Init Hosp L3 10/29/24 1024 <Electronically signed by Bola Meraz DO> Cosigner Signature (if applicable): CC: No Primary Care Physician~ Signed [facility] Work Phone: [phone]) 727-586103-28-2025 Radiology Diagnostic study [facility]03-28-2025 History and physical note Author Hill Wright [facility] Note Date/Time October 29, 2024 6:4 7am [facility] Medical Records Department [address] [place], [place] [address] [address] H&P Exam - Hospitalist 10/29/24 0033 MR#: [id number] Acct: [id number] Name: FRANKLIN WIGGINS Rep #:[id number] : 1965 59 From: Hill Luna DO PCP: Care Physician,No Primary Status :ADM IN Location: ICU ICU02-1 [facility] General General Date of Admission: 10/29/24 Date [...] toSeptember 02, 2024 with patient diagnosed with pehmd-mm-nviyksl hypotension in thesetting of acute hepatic encephalopathy [...] fluid removed who once again presents to [facility] ER complaining of abdominal pain, back [...] thatis expected to extend beyond 2 midnights. [facility] Medical History Chronic hypotension Obesity [...] 83.0 H, Lymph % (Auto) 5.6 L, [place] % (Auto) 8.4, Eos % (Auto) 1.4, [...] vertebral body compression fracture deformities. Reading Location: [facility] Assessment & Plan Assessment/Plan (1) Sepsis: [...] and sensitivity data. Give acetaminophen prn for mbro-wx-grziuasp (level 1-5/10) pain or fever. Give morphine [...] appreciated in advance. Finally, we will consult perinatal instructor to see this patient on-rounds in the AM for further recommendations with help appreciated in advance. 2. Admission here from August 29, 2024 to September 02, 2024 with patient diagnosed with umqnf-pn-fjsnynz hypotension in the setting of acute hepatic [...] responsive hypotension Charges/Coding Visit Charges Inpatient E&M: 89651 Init Hosp L3 10/29/24 0647 <Electronically signed by Hill Caro DO> Cosigner Signature (if applicable): CC: Dr. Hill Caro DO; No Primary Care Physician~ Signed [facility] Work Phone: [phone] Consult note Author Ale Renee [facility] Note Date/Time October 29, 2024 3:3 4am [facility] Medical Records Department [address] [place] [address] Pharmacokinetic/Renal -Consult 10/29/24316 MR#: [id number] Acct: [id number] Name: FRANKLIN WIGGINS CARMELA Rep #:[id number] : 1965 59 [...] Date Hill Caro DO CC: ~ Signed [facility] Work Phone: 1([phone]) 233-522003-28-2025 Discharge summary Author Alber Dunn [facility] Note Date/Time October 29, 2024 1:0 4am [facility] Medical Records Department [address] [place] [address] Emergency Department Summary 10/28/24 MR#: [id number] Acct: [id number] Name: FRANKLIN WIGGINS Rep #:[id number] : [...] 83.0 H Lymph % (Auto) 5.6 L [place] % (Auto) 8.4 Eos % (Auto) 1.4 [...] Clarity Cloudy Urine pH 6.5 Ur Specific [place] 1.015 Urine Protein 500 H Urine Glucose [...] vertebral body compression fracture deformities. Reading Location: [facility] Rhythm Strip Rhythm Strip: Sinus Rhythm [...] 30-74 minutes, Including time spent:,Discussing w/Patient &/or Family/Rubberizing Mechanic, Discussing w/Consultants, ArrangingAdmission or Transfer, Performing Direct Patient Care at Bedside and - (38 min) Discharge Plan Dx/Rx/DC Orders Clinical Impression: Chronic back pain, Chronic abdominal pain, Leukocytosis, Acute UTI, Acute hypotension, Acidosis, lactic, Sepsis Disposition Disposition: [facility] What to do if you have Problems For any increased pain, shortness of breath, bleeding, nausea or vomiting, chestpain, or any unexpected problems, contact your Primary Care Provider. Call [facility] ([phone]) or report to the closest Emergency Room. Call 911 if necessary. 10/29/24 010 <Electronically signed by Alber Dunn MD> Cosigner Signature (if applicable): CC: No Primary Care Physician ~ Signed [facility] Work Phone: [phone]) 471-485703-28-2025 Evaluation note* Diagnosis Onset Date Resolution Status Admit Date Clostridium difficile colitis acute October 29, 2024 12:43am History of uric acid staghor n calculus acute October 29, 2024 12:43am Hyponatremia acute October 29, 2024 12:43am Leukocytosis acute October 29, 2024 12:43am Obesity (BMI 30.0-34.9) acute [facility] 2024 12:43am Chronic abdominal pain chronic [facility] 2024 12:43am Chronic back [...] 2024 7:00am Lactic acidosis acute January 7:00am [facility] Work Phone: [phone] Evaluation note* Diagnosis Onset Date Resolution Status Admit Date Clostridium difficile colitis acute October 29, 2024 12:43am History of uric acid staghor n calculus acute October 29, 2024 12:43am Hyponatremia acute October 29, 2024 12:43am Leukocytosis acute October 29, 2024 12:43am Obesity (BMI 30.0-34.9) acute [facility] 2024 12:43am Chronic abdominal pain chronic [facility] 2024 12:43am Chronic back [...] January 7:00am Umbilical hernia acute January 7:00am [facility] Work Phone: [phone] Evaluation note* Diagnosis Onset Date Resolution Status Admit Date Clostridium difficile colitis acute October 29, 2024 12:43am History of uric acid staghor n calculus acute October 29, 2024 12:43am Hyponatremia acute October 29, 2024 12:43am Leukocytosis acute October 29, 2024 12:43am Obesity (BMI 30.0-34.9) acute [facility] 2024 12:43am Chronic abdominal pain chronic [facility] 2024 12:43am Chronic back pain chronic [...] January 28 7:00am Hepatic encephalopathy resolved Ju mt 2024 7:00am Lactic acidosis resolved January 7:00am Umbilical hernia inactive January 7:00am [facility] Work Phone: [phone] Evaluation note* Diagnosis Onset Date Resolution Status Admit Date Clostridium difficile colitis acute October 29, 2024 12:43am History of uric acid staghor n calculus acute October 29, 2024 12:43am Hyponatremia acute October 29, 2024 12:43am Leukocytosis acute October 29, 2024 12:43am Obesity (BMI 30.0-34.9) acute [facility] 2024 12:43am Chronic abdominal pain chronic [facility] 2024 12:43am Chronic back pain chronic [...] thor acic spine, non-traumatic acute January 09, 025 2:16pm Leukocytosis acute January 09 2:16pm [...] Chronic anemia chronic February 16, 2025 6:26pm [facility] Work Phone: [phone] 501-307003-28-2025 Evaluation note* Diagnosis Onset Date Resolution Status Admit Date Clostridium difficile colitis acute October 29, 2024 12:43am History of uric acid staghor n calculus acute October 29, 2024 12:43am Hyponatremia acute October 29, 2024 12:43am Leukocytosis acute October 29, 2024 12:43am Obesity (BMI 30.0-34.9) acute [facility] 2024 12:43am Chronic abdominal pain chronic [facility] 2024 12:43am Chronic back [...] Chronic anemia chronic February 16, 2025 6:26pm [facility] Work Phone: 1([phone]) 403-394403-28-2025 Evaluation note* Diagnosis Onset Date Resolution Status [...] Ju ly 2024 4:13pm Hepatic encephalopathy inactive ly 2024 4:13pm Hyperammonemia inactive February 25, 2025 4:13pm Hepatic cirrhosis acute March 10, 2025 1:52pm [facility] Work Phone: [phone] Discharge summary [facility] Medical Records Department [address] [place] [address] Emergency Department Summary 10/28/24 MR#: [id number] Acct: [id number] Name: FRANKLIN WIGGINS Rep #:[id number] : [...] Prior similar symptoms: Yes Recent [facility] Medical History Chronic hypotension Obesity [...] There is a pressure was 81/50 5 afgpff90/60 when I am in the room it [...] Currently he is stable at12:10 AM. [facility] blood pressure is 110/67. Spoke to [...] 83.0 H Lymph % (Auto) 5.6 L [place] % (Auto) 8.4 Eos % (Auto) 1.4 [...] Clarity Cloudy Urine pH 6.5 Ur Specific [place] 1.015 Urine Protein 500 H Urine Glucose [...] vertebral body compression fracture deformities. Reading Location: [facility] Rhythm Strip Rhythm Strip: Sinus Rhythm [...] 30-74 minutes, Including time spent:,Discussing w/Patient &/or Family/Rubberizing Mechanic, Discussing w/Consultants, ArrangingAdmission or Transfer, Performing Direct Patient Care at Bedside and - (38 min) Discharge Plan Dx/Rx/DC Orders Clinical Impression: Chronic back pain, Chronic abdominal pain, Leukocytosis, Acute UTI, Acute hypotension, Acidosis, lactic, Sepsis Disposition [facility]: [facility] [facility] What to do if you have Problems For any increased pain, shortness of breath, bleeding, nausea or vomiting, chestpain, or any unexpected problems, contact your Primary Care Provider. Call [facility] ([phone]) or report tothe closest Emergency Room. Call 911 if necessary. 10/29/24 0106 Cosigner Signature (if applicable): CC: No Primary Care Physician ~ Signed [facility]03-27-2025 Radiology Diagnostic study note [facility] Imaging Services [address] [place], [place] [id number] Abdomen/Pelvis W IV Cont ONLY MR#: [id number] Acct: [id number] Name: FRANKLIN WIGGINS Rep #: [id number] : 1965 M 59 From: Cassandra Starkey MD PCP: Care Physician,No Primary Status: REG ER Study:Abdomen/Pelvis W IV Cont ONLY Date of E xam: 10/28/24 Exam# [id number] Ordering Dr: Tee Dunn MD PROCEDURE: ABDOMEN/PELVIS [...] vertebral body compression fracture deformities. Reading Location: [facility] CC: Dr. Alber Dunn MD; No Primary Care Physician ~ Field Interviewer: Signed [facility]03-27-2025 Discharge summary Author Alber Dunn [facility] Note Date/Time October 29, 2024 1:0 4am [facility] Medical Records Department [address] [place] [address] Emergency Department Summary 10/28/24 MR#: [id number] Acct: [id number] Name: FRANKLIN WIGGINS Rep #:[id number] : [...] 83.0 H Lymph % (Auto) 5.6 L [place] % (Auto) 8.4 Eos % (Auto) 1.4 [...] Clarity Cloudy Urine pH 6.5 Ur Specific [place] 1.015 Urine Protein 500 H Urine Glucose [...] vertebral body compression fracture deformities. Reading Location: [facility] Rhythm Strip Rhythm Strip: Sinus Rhythm [...] 30-74 minutes, Including time spent:,Discussing w/Patient &/or Family/Rubberizing Mechanic, Discussing w/Consultants, ArrangingAdmission or Transfer, Performing Direct Patient Care at Bedside and - (38 min) Discharge Plan Dx/Rx/DC Orders Clinical Impression: Chronic back pain, Chronic abdominal pain, Leukocytosis, Acute UTI, Acute hypotension, Acidosis, lactic, Sepsis Disposition Disposition: Acute Care Hospital [facility] What to do if you have Problems For any increased pain, shortness of breath, bleeding, nausea or vomiting, chestpain, or any unexpected problems, contact your Primary Care Provider. Call [facility] ([phone]) or report to the closest Emergency Room. Call 911 if necessary. 10/29/24 0104 <Electronically signed by Alber Dunn MD> Cosigner Signature (if applicable): CC: No Primary Care Physician ~ Signed [facility] Work Phone: 1(581) 907-438003-03-2025 Procedure note* Joey Huang DO - 10/04/2024 5:17 PM ESTAssociated Order(s): Paracentesis Post-Procedure Diagnose(s): Other ascites Paracentesis Date/Time: 10/04/2024 5:17 PM Performed by: Joey Huang DO Authorized by: Joey Huang DO Consent: Consent obtained: Written Consent given by: Patient Risks, benefits, and alternatives were discussed: yes Risks discussed: Bleeding, bowel perforation and infection Alternatives discussed: No treatment [place] protocol: Procedure explained and questions answered to [...] Adhesive bandage Post-procedure details: Procedure completion: Tolerated [facility] Work Phone: [phone]) 598-479903-03-2025 Procedure note* Joey Huang DO - 10/04/2024 5:17 PM ESTAssociated Order(s): Paracentesis Post-Procedure Diagnose(s): Other ascites Paracentesis Date/Time: 10/04/2024 5:17 PM Performed by: Joey Huang DO Authorized by: Joey Huang DO Consent: Consent obtained: Written Consent given by: Patient Risks, benefits, and alternatives were discussed: yes Risks discussed: Bleeding, bowel perforation and infection Alternatives discussed: No treatment [place] protocol: Procedure explained and questions answered to [...] Tolerated documented in this [facility] Work Phone: 1(506) 613-765103-03-2025 Consult note* Joey Huang DO - 10/04/2024 5:13 PM EST Reason For Consult Ascites History Of Present Illness Franklin Wiggins is a 59 y.o. male presenting with abdominal pain. He presented to the emergency room from [facility] secondary to increasing abdominal girth pain and ascites He was recently drained at [facility] for his ascites His abdomen is [...] call Assessment & Plan Joey Huang DO [facility] Work Phone: 1(785) 225-897603-03-2025 Consult note* Joey Huang DO - 10/04/2024 5:13 PM EST Reason For Consult Ascites History Of Present Illness Franklin Wiggins is a 59 y.o. male presenting with abdominal pain. He presented to the emergency room from [facility] secondary to increasing abdominal girth pain and ascites He was recently drained at [facility] for his ascites His abdomen is [...] DO documented in this [facility] Work Phone: 1([phone]) 167-388903-03-2025 Physician Emergency department Note* Sriram Oleary PA-C [...] Abnormality Status --------- ------ Urinalysis with Reflex C...[[id number]] Extra Urine Toney Tube[[id number]] Please view results for these tests on the individual orders. URINALYSIS WITH REFLEX CULTURE AND MICROSCOPIC EXTRA URINE TONEY TUBE PH, BODY FLUID LACTATE DEHYDROGENASE, BODY FLUID Narrative: The following orders were created for panel order Lactate Dehydrogenase, Body Fluid. Procedure Abnormality Status --------- ------ Lactate Dehydrogenase, B...[[id number]] In process Please view results for these tests on the individual orders. GLUCOSE, BODY FLUID Narrative: The following orders were created for panel order Glucose, Body Fluid. Procedure Abnormality Status --------- ------ Glucose, Body Fluid[[id number]] In process Please view results for these tests on the individual orders. PROTEIN, TOTAL, BODY FLUID Narrative: The following orders were created for panel order Protein, Total, Body Fluid. Procedure Abnormality Status --------- ------ Protein, Total, Body Fluid[[id number]] In process Please view results for these tests on the individual orders. BODY FLUID CELL COUNT WITH DIFFERENTIAL Narrative: The following orders were created for panel order Body Fluid Cell Count With Differential. Procedure Abnormality Status --------- ------ Body Fluid Cell Count[[id number]] In process Body Fluid Differential[[id number]] In process Please view results for these tests on the individual orders. ALBUMIN, BODY FLUID Narrative: The following orders were created for panel order Albumin, Body Fluid. Procedure Abnormality Status --------- ------ Albumin, Body Fluid[[id number]] In process Please view results for these [...] Yohana Huang 10/04/2024 2:28 PM Dictation workstation: [id number] Procedures Medical Decision Making Patient is a 59-year-old male with a hx of cirrhosis who presents to the emergency department with a chief complaint of abdominal pain from [facility]. He reports increased abdominal pain that he describes as generalized, states that his abdomen is distended. Recently had a paracentesis performed at [facility] on September 29. Patient reports that [...] cirrhosis type (Multi) Sriram Oleary PA-C 10/04/241736 [facility] Work Phone: 1(783) 473-786003-03-2025 Emergency department Note* Sriram Oleary PA-C - [...] Abnormality Status --------- ------ Urinalysis with Reflex C...[[id number]] Extra Urine Toney Tube[[id number]] Please view results for these tests on the individual orders. URINALYSIS WITH REFLEX CULTURE AND MICROSCOPIC EXTRA URINE TONEY TUBE PH, BODY FLUID LACTATE DEHYDROGENASE, BODY FLUID Narrative: The following orders were created for panel order Lactate Dehydrogenase, Body Fluid. Procedure Abnormality Status --------- ------ Lactate Dehydrogenase, B...[[id number]] In process Please view results for these tests on the individual orders. GLUCOSE, BODY FLUID Narrative: The following orders were created for panel order Glucose, Body Fluid. Procedure Abnormality Status --------- ------ Glucose, Body Fluid[[id number]] In process Please view results for these tests on the individual orders. PROTEIN, TOTAL, BODY FLUID Narrative: The following orders were created for panel order Protein, Total, Body Fluid. Procedure Abnormality Status --------- ------ Protein, Total, Body Fluid[[id number]] In process Please view results for these tests on the individual orders. BODY FLUID CELL COUNT WITH DIFFERENTIAL Narrative: The following orders were created for panel order Body Fluid Cell Count With Differential. Procedure Abnormality Status --------- ------ Body Fluid Cell Count[[id number]] In process Body Fluid Differential[[id number]] In process Please view results for these tests on the individual orders. ALBUMIN, BODY FLUID Narrative: The following orders were created for panel order Albumin, Body Fluid. Procedure Abnormality Status --------- ------ Albumin, Body Fluid[[id number]] In process Please view results for these [...] Yohana Huang 10/04/2024 2:28 PM Dictation workstation: [id number] Procedures Medical Decision Making Patient is a 59-year-old male with a hx of cirrhosis who presents to the emergency department with a chief complaint of abdominal pain from [facility]. He reports increased abdominal pain that he describes as generalized, states that his abdomen is distended. Recently had a paracentesis performed at [facility] on September 29. Patient reports that [...] 10/04/241736 documented in this [facility] Work Phone: 1(770) 179-294902-26-2025 Evaluation note* Diagnosis Onset Date Resolution Status [...] 2 :16pm Umbilical hernia acute January 2:16pm [facility] Work Phone: 1([phone]) 741-966502-26-2025 Procedure note [facility] Medical Records Department [address] [place] [address] Operative Report 09/29/24 1048 MR#: [id number] Acct: [id number] Name: FRANKLIN WIGGINS Rep #:[id number] : 1965 59 From: Jasmine gusman NP ALTERATION SPECIALIST-C PCP: Care Physician,No Primary Status :REG CLI Location: [place] Problems Associated Problem List Diagnoses (1) Abdominal ascites: Multi [facility] Radiology Radiology US Procedures: 58207 Paracentesis Operative Report (Standard) Operative Information Date of Procedure: 09/29/24 Pre-Operative Diagnosis: Abdominal ascites Post-Operative Diagnosis: Abdominal ascites Surgery/Procedure Performed: Ultrasound-guided paracentesis cheese cook: No Type of Anesthesia: Local Procedure Start [...] the peritoneal cavity was accessed with a 5-Urdu paracentesis needle/catheter system. The trocar was removed. [...] No Primary Care Physician; DIANE CALLAHAN~ Signed [facility]02-02-2025 Evaluation note* Diagnosis Onset Date Resolution [...] 2024 12:43am Chronic abdominal pain chronic [facility] 2024 12:43am Chronic back pain chronic [...] 6:06am Fall acute January 02, 2025 6:06am [facility] Work Phone: 1([phone]) 642-602802-02-2025 Evaluation note* Diagnosis Onset Date Resolution Status [...] deleted Februa 2024 1:46am Abdominal ascites acute uar y [...] acic spine, non-traumatic acute January 09, 2 2:16pm Sepsis acute January 09, 2025 2:16pm [facility] Work Phone: [phone]) 604-551601-27-2025 Evaluation note* Diagnosis Onset Date Resolution Status Admit Date ISABEL (acute kidney injury) inactive August 29, 2024 10:09pm Hepatic encephalopathy inactive Tyron villafuerte 2024 10:09pm Hypotension inactive August 29, 2024 10:09pm Ambulatory dysfunction acute bru2024 1:46am Generalized weakness acute Febr uary [...] Abdominal ascites acute uar y 2024 9:35am [facility] Work Phone: [phone]) 152-710901-27-2025 Evaluation note* Diagnosis Onset Date Resolution Status Admit Date ISABEL (acute kidney injury) inactive August 29, 2024 10:09pm Hepatic encephalopathy inactive Tyron villafuerte 2024 10:09pm Hypotension inactive August 29, 2024 10:09pm Ambulatory dysfunction acute bru2024 1:46am Generalized weakness acute Febr uary [...] 29, 2024 12:43am Obesity (BMI 30.0-34.9) acute [facility] 2024 12:43am Sepsis acute October 29 12:43am Chronic abdominal pain chronic [facility] 2024 12:43am Chronic back pain chronic October 032024 12:43am [facility] Work Phone: 1(378) 993-666201-27-2025 Evaluation note* Diagnosis Onset Date Resolution Status [...] October 29 12:43am Chronic abdominal pain chronic [facility] 2024 12:43am Chronic back pain chronic October 032024 12:43am [facility] Work Phone: 1([phone]) [phone] Evaluation note* Diagnosis Onset Date Resolution Status [...] 05, 2024 1:46am Chronic back pain inactive ua y 2024 1:46am Chronic hypotension inactive u [...] 2024 12:43am Chronic abdominal pain chronic [facility] 2024 12:43am Chronic back pain chronic [...] 4:28am Staghorn calculus acute November 032024 4:28am [facility] Work Phone: [phone]) 356-243801-27-2025 Evaluation note* Diagnosis Onset Date Resolution Status [...] 2024 12:43am Chronic abdominal pain chronic [facility] 2024 12:43am Chronic back pain chronic [...] infection) resolv ed November 28, 2024 4:51pm [facility] Work Phone: Discharge summary Author Herberth Carlson [facility] Note Date/Time November 21, 2024 4:1 6am [facility] Medical Records Department [address] [place] [address] Emergency Department Summary 11/21/24 MR#: [id number] Acct: [id number] Name: FRANKLIN WIGGINS Rep #:[id number] : [...] discontinue his lactulose. He was recently admitted [facility] for cirrhosis and other issues, he [...] toilet after multiple attempts over couple hours. [facility] Medical History Diarrhea Sepsis [...] (Auto) 68.7 Lymph % (Auto) 13.9 L [place] % (Auto) 9.2 Eos % (Auto) 7.2 [...] Sl Cldy Urine pH 6.0 Ur Specific [place] 1.015 Urine Protein 500 H Urine Glucose [...] process. Follow-up to resolution recommended. Reading Location: [facility] Discussion w/another healthcare provider: Hospitalist Discharge Plan [...] Primary [Primary Care Provider] - Print Language: Spanish Disposition Disposition: Acute Care Hospital [facility] What to do if you have Problems For any increased pain, shortness of breath, bleeding, nausea or vomiting, chestpain, or any unexpected problems, contact your Primary Care Provider. Call [facility] ([phone]) or report to the closest Emergency Room. Call 911 if necessary. 11/21/24 0527 <Electronically signed by Herberth Carlson MD> Cosigner Signature (if applicable): CC: No Primary Care Physician ~ Signed [facility] Work Phone: Discharge summary Author Mina Vinescliff [facility] Note Date/Time December 30, 2024 5:19a m [facility] Medical Records Department [address] [place] [address] Emergency Department Summary 12/30/24 MR#: [id number] Acct: [id number] Name: FRANKLIN WIGGINS Rep #:[id number] : 1965 59 From: Mina Blood DO PCP: BRITTANY PenaC Status:REG E R [...] recent trauma prior to the pain beginning. [facility] Medical History Weakness Diarrhea [...] mg tablet (Xifaxan) 550 mg PO BID safia ea #60 tabs 09/02/24 11/28/24 Rx insulin [...] (Auto) 69.7 Lymph % (Auto) 14.0 L [place] % (Auto) 9.1 Eos % (Auto) 6.2 [...] Clarity Cloudy Urine pH 6.5 Ur Specific [place] 1.010 Urine Protein 100 H Urine Glucose [...] you have any further concerns Print Language: Spanish Disposition Disposition: Home, Self Care What to do if you have Problems For any increased pain, shortness of breath, bleeding, nausea or vomiting, chestpain, or any unexpected problems, contact your Primary Care Provider. Call [facility] ([phone]) or report to the closest Emergency Room. Call 911 if necessary. 12/30/24 0519 <Electronically signed by Mina Blood DO> Cosigner Signature (if applicable): CC: YG Elias ~ Signed [facility] Work Phone: Discharge summary Author Roddy Reeves [facility] Note Date/Time January 02, 2025 6:00a m [facility] Medical Records Department [address] [place] [address] Emergency Department Summary 01/02/25 MR#: [id number] Acct: [id number] Name: FRANKLIN WIGGINS Rep #:[id number] : [...] was here recently and was sent home. [facility] Medical History Weakness Diarrhea [...] mg tablet (Xifaxan) 550 mg PO BID [facility] ea #60 tabs 09/02/24 11/28/24 Rx insulin [...] Patient following commands that he was at [facility] that wewere in the end of [...] (Auto) 68.0 Lymph % (Auto) 12.2 L [place] % (Auto) 11.9 H Eos % (Auto) [...] Clarity Turbid Urine pH 6.0 Ur Specific [place] 1.015 Urine Protein 100 H Urine Glucose [...] NP-C [Primary Care Provider] - Print Language: Spanish Disposition Disposition: Acute Care Hospital [facility] What to do if you have Problems For any increased pain, shortness of breath, bleeding, nausea or vomiting, chestpain, or any unexpected problems, contact your Primary Care Provider. Call [facility] ([phone]) or report to the closest Emergency Room. Call 911 if necessary. 01/02/25 0600 <Electronically signed by Roddy Reeves DO> Cosigner Signature (if applicable): CC: YG Elias ~ Signed [facility] Work Phone: Discharge summary Author Mina Blood [facility] Note Date/Time February 08, 2025 3:03a [facility] Medical Records Department [address] [place] [address] Emergency Department Summary 02/08/25 MR#: [id number] Acct: [id number] Name: FRANKLIN WIGGINS Rep #:[id number] : [...] bouts of constipation fevers chills or dysuria. [facility] Medical History (Updated 02/08/25 [...] surgery as fat necrosis is a nonemergent zux-qqze-wxviqdfhbat process. The patient will be given pain [...] 72.8 H Lymph % (Auto) 12.8 L [place] % (Auto) 8.1 Eos % (Auto) 5.4 [...] double-J stent in place. Anasarca. Reading Location: [place] [address] Discharge Plan Triage Chief Complaint: Abd Pain [...] Ambulatory Orders: Paracentesis with US (Routine) Facility: [facility] - Location: [facility] Ordered By: Dr. Mina Blood Primary [...] you have any further concerns. Print Language: Spanish Disposition Disposition: Home, Self Care What to do if you have Problems For any increased pain, shortness of breath, bleeding, nausea or vomiting, chestpain, or any unexpected problems, contact your Primary Care Provider. Call [facility] ([phone]) or report to the closest Emergency Room. Call 911 if necessary. 02/08/25 0303 <Electronically signed by Mina Blood DO> Cosigner Signature (if applicable): CC: Dr. Jerald Sherwood MD ~ Signed [facility] Work Phone: Evaluation note* Diagnosis Other ascites- Primary Abdominal pain, generalized Cirrhosis of liver with ascites, unspecified hepatic cirrhosis type (Multi) Peripheral edema Edema Coagulopathy (Multi) Other and unspecified coagulation defects Hyperbilirubinemia Disorders of bilirubin excretion documented in this encounter [facility] Work Phone: Evaluation note* Diagnosis Metabolic dysfunction-associated steatohepatitis (MASH)- Primary [facility]- Primary Metabolic dysfunction-associated steatohepatitis (MASH) [facility] Diagnosis Pre-transplant evaluation for liver transplant- Primary [facility] Diagnosis Liver transplant candidate- Primary Pre-operative clearance Preoperative examination, unspecified [facility] Diagnosis Screening for genitourinary condition Screening for other and unspecified genitourinary condition [facility] Buster Fuchs [facility] Note Date/Time January 02, 2025 6:44a m [facility] Medical Records Department [address] [place] [address] H&P Exam - Hospitalist 01/02/25 0556 MR#: [id number] Acct: [id number] Name: FRANKLIN WIGGINS Rep #:[id number] : 1965 59 From: Buster duarte MD PCP: YG Pena Status:ADM I N Location: U FIQ626- 1 HPI - General General Date of [...] that time he was transferred to [facility] 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 Was not considered to be a liver transplant candidate and was placed on anticoagulation. He has had a couple of readmissions for weakness and debility. [place] to possibly have aUTI given a staghorn [...] Heis receiving potassium infusion in the ER. [facility] Medical History Weakness Diarrhea Sepsis [...] (Auto) 68.0, Lymph % (Auto) 12.2 L, [place] % (Auto) 11.9 H, Eos % (Auto) [...] once verified Charges/Coding Visit Charges Inpatient E&M: 57719 Init Hosp L2 01/02/25 0644 <Electronically signed by Buster Fuchs MD> Cosigner Signature (if applicable): CC: YG Elias; Dr. Buster Fuchs MD~ Signed [facility] Work Phone: Hospital Discharge instructions* Attachments The following attachments cannot be sent through Care Everywhere. * Cirrhosis (Spanish) * Abdominal pain (Spanish) documented in this [facility] Work Phone: Hospital Discharge instructions [...] the ER should [facility] have any [facility] Work Phone: Hospital Discharge instructionsAdditional Instructions [...] the ER should you have any further concerns.[facility] Work Phone: Hospital Discharge instructionsAdditional Instructions Thank you for trusting us with your care today! Please take Tylenol (2 pills, 650 mg), ibuprofen (2 pills, 400 mg) every 6 hours as needed for pain and fever control. Please return to the emergency department if your symptoms change or worsen. Please follow with your primary care physician for further outpatient evaluation and management.[facility] Work Phone: Hospital Discharge instructionsAdditional Instructions Take your short acting insulin and long-acting insulin as home as prescribed, you may need to give additional units if it continues to run high. Contact your hospice group.[facility] Work Phone: Hospital Discharge instructionsAdditional Instructions Date [facility]: [facility] Work Phone: Reason for referral (narrative)No reason for referral information availableWKnox Community Hospital Work Phone: Summary Purpose Family History [...] Will No August 21 2:51pm Power of Senior Sas Programmer No August 21, 2024 2:51pm Living Will No August 30 12:39am Power of Senior Sas Programmer No August 30, 2024 12:39am Living Will No September 05 4:42am Power of Senior Sas Programmer No September 05, 2024 4:42am Advance Directive Response Recorded Date/ Time Living Will No August 21 2:51pm Do you have a Healthcare Power of Senior Sas Programmer? No August 21, 2024 2:51pm Living Will No August 30 12:39am Do you have a Healthcare Power of Senior Sas Programmer? No August 30, 2024 12:39am Living Will No September 05 4:42am Do you have a Healthcare Power of Senior Sas Programmer? No September 05, 2024 4:42am Living Will No October 28, 2024 5:24pm Do you have a Healthcare Power of Senior Sas Programmer? No October 28, 2024 5:24pm Advance Directive Response Recorded Date/ Time Living Will No August 21 2:51pm Do you have a Healthcare Power of Senior Sas Programmer? No August 21, 2024 2:51pm Living Will No August 30 12:39am Do you have a Healthcare Power of Senior Sas Programmer? No August 30, 2024 12:39am Living Will No September 05 4:42am Do you have a Healthcare Power of Senior Sas Programmer? No September 05, 2024 4:42am Living Will No October 29, 2024 1:46am Do you have a Healthcare Power of Senior Sas Programmer? No October 29, 2024 1:46am Date Activated Date Inactivated Comments 11/11/2024 7:22 AM Question Answer Comments Full Code Order Discussed With: Patient Date Activated Date Inactivated Comments 11/11/2024 7:22 AM Advance Directive Response Recorded Date/ Time Living Will No August 21 2:51pm Do you have a Healthcare Power of Senior Sas Programmer? No August 21, 2024 2:51pm Living Will No August 30 12:39am Do you have a Healthcare Power of Senior Sas Programmer? No August 30, 2024 12:39am Living Will No September 05 4:42am Do you have a Healthcare Power of Senior Sas Programmer? No September 05, 2024 4:42am Living Will No October 29, 2024 1:46am Do you have a Healthcare Power of Senior Sas Programmer? No October 29, 2024 1:46am Living Will Yes November 21, 2024 1:32am Do you have a Healthcare Power of Senior Sas Programmer? Yes November 21, 2024 1:32am Name of Medical Power of Senior Sas Programmer Mary anne November 21, 2024 1:32am Advance Directive Response Recorded Date/ Time Living Will No August 21 2:51pm Do you have a Healthcare Power of Senior Sas Programmer? No August 21, 2024 2:51pm Living Will No August 30 12:39am Do you have a Healthcare Power of Senior Sas Programmer? No August 30, 2024 12:39am Living Will No September 05 4:42am Do you have a Healthcare Power of Senior Sas Programmer? No September 05, 2024 4:42am Living Will No October 29, 2024 1:46am Do you have a Healthcare Power of Senior Sas Programmer? No October 29, 2024 1:46am Living Will Yes November 21, 2024 5:32am Do you have a Healthcare Power of Senior Sas Programmer? Yes November 21, 2024 5:32am Name of Medical Power of Senior Sas Programmer anne Hernandez November 21, 2024 5:32am Do you have a Healthcare Power of Senior Sas Programmer? No November 28, 2024 5:49pm Advance Directive Response Recorded Date/ Time Living Will No August 30 12:39am Do you have a Healthcare Power of Senior Sas Programmer? No August 30, 2024 12:39am Living Will No September 05 4:42am Do you have a Healthcare Power of Senior Sas Programmer? No September 05, 2024 4:42am Living Will No October 29, 2024 1:46am Do you have a Healthcare Power of Senior Sas Programmer? No October 29, 2024 1:46am Living Will Yes November 21, 2024 5:32am Do you have a Healthcare Power of Senior Sas Programmer? Yes November 21, 2024 5:32am Name of Medical Power of Senior Sas Programmer anne Hernandez November 21, 2024 5:32am Do you have a Healthcare Power of Senior Sas Programmer? No November 28, 2024 5:49pm Advance Directive Response Recorded Date/ Time Living Will No August 30 12:39am Do you have a Healthcare Power of Senior Sas Programmer? No August 30, 2024 12:39am Living Will No September 05 4:42am Do you have a Healthcare Power of Senior Sas Programmer? No September 05, 2024 4:42am Living Will No October 29, 2024 1:46am Do you have a Healthcare Power of Senior Sas Programmer? No October 29, 2024 1:46am Living Will Yes November 21, 2024 5:32am Do you have a Healthcare Power of Senior Sas Programmer? Yes November 21, 2024 5:32am Name of Medical Power of Senior Sas Programmer anne Hernandez November 21, 2024 5:32am Do you have a Healthcare Power of Senior Sas Programmer? No November 28, 2024 5:49pm Do you have a Healthcare Power of Senior Sas Programmer? No December 26, 2024 10:02am Advance Directive Response Recorded Date/ Time Living Will No August 30 12:39am Do you have a Healthcare Power of Senior Sas Programmer? No August 30, 2024 12:39am Living Will No September 05 4:42am Do you have a Healthcare Power of Senior Sas Programmer? No September 05, 2024 4:42am Living Will No October 29, 2024 1:46am Do you have a Healthcare Power of Senior Sas Programmer? No October 29, 2024 1:46am Living Will Yes November 21, 2024 5:32am Do you have a Healthcare Power of Senior Sas Programmer? Yes November 21, 2024 5:32am Name of Medical Power of Senior Sas Programmer anne Hernandez November 21, 2024 5:32am Do you have a Healthcare Power of Senior Sas Programmer? No November 28, 2024 5:49pm Do you have a Healthcare Power of Senior Sas Programmer? No December 26, 2024 10:02am Do you have a Healthcare Power of Senior Sas Programmer? No December 30, 2024 1:06am Advance Directive Response Recorded Date/ Time Do you have a Healthcare Power of Senior Sas Programmer? No January 02, 2025 2:59am Living Will No September 05 4:42am Do you have a Healthcare Power of Senior Sas Programmer? No September 05, 2024 4:42am Living Will No October 29, 2024 1:46am Do you have a Healthcare Power of Senior Sas Programmer? No October 29, 2024 1:46am Living Will Yes November 21, 2024 5:32am Do you have a Healthcare Power of Senior Sas Programmer? Yes November 21, 2024 5:32am Name of Medical Power of Senior Sas Programmer anne Hernandez November 21, 2024 5:32am Do you have a Healthcare Power of Senior Sas Programmer? No November 28, 2024 5:49pm Do you have a Healthcare Power of Senior Sas Programmer? No December 26, 2024 10:02am Do you have a Healthcare Power of Senior Sas Programmer? No December 30, 2024 1:06am Advance Directive Response Recorded Date/ Time Do you have a Healthcare Power of Senior Sas Programmer? No January 02, 2025 8:14am Living Will No September 05 4:42am Do you have a Healthcare Power of Senior Sas Programmer? No September 05, 2024 4:42am Living Will No October 29, 2024 1:46am Do you have a Healthcare Power of Senior Sas Programmer? No October 29, 2024 1:46am Living Will Yes November 21, 2024 5:32am Do you have a Healthcare Power of Senior Sas Programmer? Yes November 21, 2024 5:32am Name of Medical Power of Senior Sas Programmer anne Hernandez November 21, 2024 5:32am Do you have a Healthcare Power of Senior Sas Programmer? No November 28, 2024 5:49pm Do you have a Healthcare Power of Senior Sas Programmer? No December 26, 2024 10:02am Do you have a Healthcare Power of Senior Sas Programmer? No December 30, 2024 1:06am Advance Directive Response Recorded Date/ Time Do you have a Healthcare Power of Senior Sas Programmer? No January 02, 2025 8:14am Living Will No September 05 4:42am Do you have a Healthcare Power of Senior Sas Programmer? No September 05, 2024 4:42am Living Will No October 29, 2024 1:46am Do you have a Healthcare Power of Senior Sas Programmer? No October 29, 2024 1:46am Living Will Yes November 21, 2024 5:32am Do you have a Healthcare Power of Senior Sas Programmer? Yes November 21, 2024 5:32am Name of Medical Power of Senior Sas Programmer anne Hernandez November 21, 2024 5:32am Do you have a Healthcare Power of Senior Sas Programmer? No November 28, 2024 5:49pm Do you have a Healthcare Power of Senior Sas Programmer? No December 26, 2024 10:02am Do you have a Healthcare Power of Senior Sas Programmer? No December 30, 2024 1:06am Do you have a Healthcare Power of Senior Sas Programmer? No January 09, 2025 10:10am Advance Directive Response Recorded Date/ Time Do you have a Healthcare Power of Senior Sas Programmer? No January 02, 2025 8:14am Living Will No October 29, 2024 1:46am Do you have a Healthcare Power of Senior Sas Programmer? No October 29, 2024 1:46am Living Will Yes November 21, 2024 5:32am Do you have a Healthcare Power of Senior Sas Programmer? Yes November 21, 2024 5:32am Name of Medical Power of Senior Sas Programmer anne Hernandez November 21, 2024 5:32am Do you have a Healthcare Power of Senior Sas Programmer? No November 28, 2024 5:49pm Do you have a Healthcare Power of Senior Sas Programmer? No December 26, 2024 10:02am Do you have a Healthcare Power of Senior Sas Programmer? No December 30, 2024 1:06am Do you have a Healthcare Power of Senior Sas Programmer? No January 09, 2025 3:31pm Advance Directive Response Recorded Date/ Time Do you have a Healthcare Power of Senior Sas Programmer? No January 02, 2025 8:14am Do you have a Healthcare Power of Senior Sas Programmer? No January 28, 2025 3:02am Living Will No October 29, 2024 1:46am Do you have a Healthcare Power of Senior Sas Programmer? No October 29, 2024 1:46am Living Will Yes November 21, 2024 5:32am Do you have a Healthcare Power of Senior Sas Programmer? Yes November 21, 2024 5:32am Name of Medical Power of Senior Sas Programmer anne Hernandez November 21, 2024 5:32am Do you have a Healthcare Power of Senior Sas Programmer? No November 28, 2024 5:49pm Do you have a Healthcare Power of Senior Sas Programmer? No December 26, 2024 10:02am Do you have a Healthcare Power of Senior Sas Programmer? No December 30, 2024 1:06am Do you have a Healthcare Power of Senior Sas Programmer? No January 09, 2025 3:31pm Advance Directive Response Recorded Date/ Time Do you have a Healthcare Power of Senior Sas Programmer? No January 02, 2025 8:14am Do you have a Healthcare Power of Senior Sas Programmer? No January 28, 2025 3:02am Living Will No October 29, 2024 1:46am Do you have a Healthcare Power of Senior Sas Programmer? No October 29, 2024 1:46am Living Will Yes November 21, 2024 5:32am Do you have a Healthcare Power of Senior Sas Programmer? Yes November 21, 2024 5:32am Name of Medical Power of Senior Sas Programmer anne Hernandez November 21, 2024 5:32am Do you have a Healthcare Power of Senior Sas Programmer? No November 28, 2024 5:49pm Do you have a Healthcare Power of Senior Sas Programmer? No December 26, 2024 10:02am Do you have a Healthcare Power of Senior Sas Programmer? No December 30, 2024 1:06am Do you have a Healthcare Power of Senior Sas Programmer? No January 09, 2025 3:31pm Do you have a Healthcare Power of Senior Sas Programmer? No February 07, 2025 10:20pm Advance Directive Response Recorded Date/ Time Do you have a Healthcare Power of Senior Sas Programmer? No January 02, 2025 8:14am Do you have a Healthcare Power of Senior Sas Programmer? No January 28, 2025 3:02am Living Will No October 29, 2024 1:46am Do you have a Healthcare Power of Senior Sas Programmer? No October 29, 2024 1:46am Living Will Yes November 21, 2024 5:32am Do you have a Healthcare Power of Senior Sas Programmer? Yes November 21, 2024 5:32am Name of Medical Power of Senior Sas Programmer anne Hernandez November 21, 2024 5:32am Do you have a Healthcare Power of Senior Sas Programmer? No November 28, 2024 5:49pm Do you have a Healthcare Power of Senior Sas Programmer? No December 26, 2024 10:02am Do you have a Healthcare Power of Senior Sas Programmer? No December 30, 2024 1:06am Do you have a Healthcare Power of Senior Sas Programmer? No January 09, 2025 3:31pm Do you have a Healthcare Power of Senior Sas Programmer? No February 07, 2025 10:20pm Do you have a Healthcare Power of Senior Sas Programmer? No February 13, 2025 4:40pm Advance Directive Response Recorded Date/ Time Do you have a Healthcare Power of Senior Sas Programmer? No January 02, 2025 8:14am Do you have a Healthcare Power of Senior Sas Programmer? No January 28, 2025 3:02am Living Will No October 29, 2024 1:46am Do you have a Healthcare Power of Senior Sas Programmer? No October 29, 2024 1:46am Living Will Yes November 21, 2024 5:32am Do you have a Healthcare Power of Senior Sas Programmer? Yes November 21, 2024 5:32am Name of Medical Power of Senior Sas Programmer anne Hernandez November 21, 2024 5:32am Do you have a Healthcare Power of Senior Sas Programmer? No November 28, 2024 5:49pm Do you have a Healthcare Power of Senior Sas Programmer? No December 26, 2024 10:02am Do you have a Healthcare Power of Senior Sas Programmer? No December 30, 2024 1:06am Do you have a Healthcare Power of Senior Sas Programmer? No January 09, 2025 3:31pm Do you have a Healthcare Power of Senior Sas Programmer? No February 07, 2025 10:20pm Do you have a Healthcare Power of Senior Sas Programmer? No February 13, 2025 4:40pm Do you have a Healthcare Power of Senior Sas Programmer? No February 16, 2025 6:30pm Advance Directive Response Recorded Date/ Time Do you have a Healthcare Power of Senior Sas Programmer? No January 02, 2025 8:14am Do you have a Healthcare Power of Senior Sas Programmer? No January 28, 2025 3:02am Living Will No October 29, 2024 1:46am Do you have a Healthcare Power of Senior Sas Programmer? No October 29, 2024 1:46am Living Will Yes November 21, 2024 5:32am Do you have a Healthcare Power of Senior Sas Programmer? Yes November 21, 2024 5:32am Name of Medical Power of Senior Sas Programmer anne Hernandez November 21, 2024 5:32am Do you have a Healthcare Power of Senior Sas Programmer? No November 28, 2024 5:49pm Do you have a Healthcare Power of Senior Sas Programmer? No December 26, 2024 10:02am Do you have a Healthcare Power of Senior Sas Programmer? No December 30, 2024 1:06am Do you have a Healthcare Power of Senior Sas Programmer? No January 09, 2025 3:31pm Do you have a Healthcare Power of Senior Sas Programmer? No February 07, 2025 10:20pm Do you have a Healthcare Power of Senior Sas Programmer? No February 13, 2025 4:40pm Do you have a Healthcare Power of Senior Sas Programmer? No February 16, 2025 7:47pm Advance Directive Response Recorded Date/ Time Do you have a Healthcare Power of Senior Sas Programmer? No January 02, 2025 8:14am Do you have a Healthcare Power of Senior Sas Programmer? No January 28, 2025 3:02am Do you have a Healthcare Power of Senior Sas Programmer? No February 25, 2025 5:00pm Living Will No October 29, 2024 1:46am Do you have a Healthcare Power of Senior Sas Programmer? No October 29, 2024 1:46am Living Will Yes November 21, 2024 5:32am Do you have a Healthcare Power of Senior Sas Programmer? Yes November 21, 2024 5:32am Name of Medical Power of Senior Sas Programmer anne Hernandez November 21, 2024 5:32am Do you have a Healthcare Power of Senior Sas Programmer? No November 28, 2024 5:49pm Do you have a Healthcare Power of Senior Sas Programmer? No December 26, 2024 10:02am Do you have a Healthcare Power of Senior Sas Programmer? No December 30, 2024 1:06am Do you have a Healthcare Power of Senior Sas Programmer? No January 09, 2025 3:31pm Do you have a Healthcare Power of Senior Sas Programmer? No February 07, 2025 10:20pm Do you have a Healthcare Power of Senior Sas Programmer? No February 13, 2025 4:40pm Do you have a Healthcare Power of Senior Sas Programmer? No February 16, 2025 7:47pm Do you have a Healthcare Power of Senior Sas Programmer? No March 11, 2025 5:16pm Advance Directive Response Recorded Date/ Time Do you have a Healthcare Power of Senior Sas Programmer? No January 02, 2025 8:14am Do you have a Healthcare Power of Senior Sas Programmer? No January 28, 2025 3:02am Do you have a Healthcare Power of Senior Sas Programmer? No February 25, 2025 5:00pm Do you have a Healthcare Power of Senior Sas Programmer? No April 03, 2025 8:27pm Do you have a Healthcare Power of Senior Sas Programmer? No December 26, 2024 10:02am Do you have a Healthcare Power of Senior Sas Programmer? No December 30, 2024 1:06am Do you have a Healthcare Power of Senior Sas Programmer? No January 09, 2025 3:31pm Do you have a Healthcare Power of Senior Sas Programmer? No February 07, 2025 10:20pm Do you have a Healthcare Power of Senior Sas Programmer? No February 13, 2025 4:40pm Do you have a Healthcare Power of Senior Sas Programmer? No February 16, 2025 7:47pm Do you have a Healthcare Power of Senior Sas Programmer? No March 10, 2025 8:43am Do you have a Healthcare Power of Senior Sas Programmer? No March 11, 2025 5:16pm Do you have a Healthcare Power of Senior Sas Programmer? No April 07, 2025 7:00pm Advance Directive Response Recorded Date/ Time Do you have a Healthcare Power of Senior Sas Programmer? No January 02, 2025 8:14am Do you have a Healthcare Power of Senior Sas Programmer? No January 28, 2025 3:02am Do you have a Healthcare Power of Senior Sas Programmer? No February 25, 2025 5:00pm Do you have a Healthcare Power of Senior Sas Programmer? No April 03, 2025 8:27pm Do you have a Healthcare Power of Senior Sas Programmer? No December 26, 2024 10:02am Do you have a Healthcare Power of Senior Sas Programmer? No December 30, 2024 1:06am Do you have a Healthcare Power of Senior Sas Programmer? No January 09, 2025 3:31pm Do you have a Healthcare Power of Senior Sas Programmer? No February 07, 2025 10:20pm Do you have a Healthcare Power of Senior Sas Programmer? No February 13, 2025 4:40pm Do you have a Healthcare Power of Senior Sas Programmer? No February 16, 2025 7:47pm Do you have a Healthcare Power of Senior Sas Programmer? No March 10, 2025 8:43am Do you have a Healthcare Power of Senior Sas Programmer? No March 11, 2025 5:16pm Do you have a Healthcare Power of Senior Sas Programmer? No April 07, 2025 11:36pm Chief Complaint [...] 72024 4:50pm SEPSIS WITH STAGHORN CALCULI September 8t [...] History of uric acid staghorn calculus [facility] 2024 12:43am Hyponatremia October 29, 2024 [...] 2024 10:36am SEPSIS WITH STAGHORN CALCULI September 92024 [...] Date SEPSIS, UTI, DIARRHEA & ABDOMINAL PAIN [facility] 2024 12:43am SEPSIS, UTI, DIARRHEA & [...] Thrombus Procedures Evaluate and treat HOSP MAIN [id number] [place] [address] Phone: tel: Referral ID Status Reason Start Date Expiration Date Visits Re quested Visits Authorized [id number] 1 1 Reason Comments Abdominal Pain Patient [...] minutes. 1543 (Given - Provid er: Day oJnes RN) ondansetron ODT (Zofran-ODT) disintegrating tablet 4 mg (COMPLETED) 4 mg, oral, Once, On Fri10/04/24 at 2114, For 1 dose 2117 (Given - Provid er: Marquita Feliz RN) oxyCODONE (Roxicodone) immediate release tablet 5 mg (COMPLETED) 5 mg, oral, Once, On Fri10/04/24 at 1905, For 1 dose, If ordered PRN for pain, nurse is permitted to administer this medication for higher pain scores based on patient preference? Yes 1928 (Given - Provid er: Day Jones, DAYSI) spironolactone (Aldactone) split tablet 12.5 mg (COMPLETED) [...] 2024 End: November 11, 2024 Yue Delgadillo ALTERATION SPECIALIST, ALTERATION SPECIALIST-C Other Provider Active St art: October 29, [...] S tart: October 30, 2024 Dr. Dary Lnud MD Other Provider Active Start: October 30, [...] Active Start: October 31, 2024 Dr. Alber Dnun MD Emergency Provider [...] Active Start: November 03, 2024 Dr. Hill de Kyle , DO Other Provider Active Start: November 03, [...] Sta rt: November 10, 2024 Yue Delgadillo ALTERATION SPECIALIST, ALTERATION SPECIALIST-C Other Provider Active St art: November 10, 2024 Team Status: Active Member Role Status Dates No Primary Care Physician Primary Care Provider Active Start: November 21, 2024 Dr. Herberth Carlson MD Emergency Provider Active Start: November 21, 2024 Dr. Jae Ash DO Admit Provider Active Start: November 21, 2024 Dr. Jae Ahs DO Attending Provider Active Start: November 21, 2024 Dr. Jae Ash , DO Other [...] 2024 End: December 15, 2024 Josy Elias NP-[place] Referring Provider Active Start: December 15, 2024 End: December 15, 2024 Team Status: Inactive Member Role Status Dates BRITTANY PenaC Primary Care Provider Active Start: December 26, 2024 End: December 26, 2024 Dr. Boone Carvajal DO Attending Provider Active Start: December 26, 2024 End: December 26, 2024 Dr. Boone Carvajal DO Emergency Provider Active Start: December 26, 2024 End: December 26, 2024 Team Status: Inactive Member Role Status Dates Josy Elias ALTERATION SPECIALIST-C Primary Care Provider Active Start: December 30, 2024 End: December 30, 2024 Dr. Mina Blood DO Attending Provider Active Start: December 30, 2024 End: December 30, 2024 Dr. Mina Blood DO Emergency Provider Active Start: December 30, 2024 End: December 30, 2024 Team Status: Inactive Member Role Status Dates Josy Elias ALTERATION SPECIALIST-C Primary Care Provider Active Start: January 02, [...] Active Member Role Status Dates Josy Elias ALTERATION SPECIALIST-C Primary Care Provider Active Start: January 03, [...] Active Member Role Status Dates Josy Elias ALTERATION SPECIALIST-C Primary Care Provider Active Start: January 04, [...] Active Member Role Status Dates Josy Elias ALTERATION SPECIALIST-C Primary Care Provider Active Start: January 05, [...] Inactive Member Role Status Dates Josy Elias ALTERATION SPECIALIST-C Primary Care Provider Active Start: January 09, [...] Provider Active Start: January 10, 2025 Dr. Juarze Baird MD Other Provider Active Star t: [...] Active Member Role Status Dates Josy Elias ALTERATION SPECIALIST-C Primary Care Provider Active Start: January 11, [...] Active Member Role Status Dates Josy Elias ALTERATION SPECIALIST-C Primary Care Provider Active Start: January 12, 2025 Dr. Breann Mendez DO Emergency Provider Active S tart: January 12, 2025 Dr. Yaritza Leo , Admit Provider Active Start : January 12, 2025 Dr. Yaritza Leo , Other Provider Active Start : January 12, 2025 Dr. Cielo Tovar MD Attending Provider Active Start: January 12, 2025 Dr. Cielo Tovar MD Other Provider Active St art: January 12, 2025 Dr. Jefferson Malave MD Other Provider Active St art: January 12, 2025 Team Status: Active Member Role Status Dates [facility] Provider Active Start: January [...] Active Member Role Status Dates [facility] Primary [facility] Provider Active Start: January 14, [...] Active Member Role Status Dates Josy Elias ALTERATION SPECIALIST-C Primary Care Provider Active Start: January 18, [...] Active Member Role Status Dates Josy Elias ALTERATION SPECIALIST-C Primary Care Provider Active Start: January 20, 2025 Dr. Breann Mendez DO Emergency Provider Active S tart: January 20, 2025 Dr. Yaritza Leo DO Admit Provider Active Start : January 20, 2025 Dr. Yaritza Leo , Other Provider Active Start : January 20, [...] End: August 21, 2024 Dr. Danny Hutton , DO Emergency Provider Activ e Start: August [...] End: September 02, 2024 Dr. Maria Guadalupe Shoer MD Other Provider Active St art: August [...] Start : August 30, 2024 Dr. Will Lboo MD Other Provider Active Start: August 30, 2024 Dr. Mina Xie MD Other Provider Active Start : August 30, 2024 Dr. Betty Pruett MD Other Provider Active Star t: August 30, 2024 Dr. Gwendolyn Loagn MD Other Provider Active Sta rt: August [...] S tart: August 31, 2024 Dr. Bola Mearz DO Other Provider Active Start : August [...] Active St art: September 06, 2024 Dr. Nademe Au MD Other Provider Active Star t: [...] Active Start: September 06, 2024 Dr. Josefina Kahn MD Other Provider Active Start: September 06, [...] September 06, 2024 Dr. Bola Meraz , Other Provider Active Start : September 06, [...] Start: September 10, 2024 Dr. Rachel Joiner , DO Emergency Provider Active Start: September 10, 2024 Dr. Hill Caro , DO Admit Provider Active Start: September 10, 2024 Dr. Hill Caro DO Other Provider Active Start: September 10, 2024 Dr. Foster Rascon MD Other Provider Active Start: September 10, 2024 Dr. Thai Thurston MD Other Provider Active Start: September 10, 2024 Dr. Josefina Khan MD Other Provider Active Start: September 10, 2024 Dr. Jae Ash , DO Attending Provider Active Start: September 10, 2024 Dr. Jae Ash , DO Other Provider Active Start: September 10, [...] 11, 2024 Dr. Hill Caro , DO Other [...] Other Provider Active Start: 2024 Jasmine Morocho ALTERATION SPECIALIST, ALTERATION SPECIALIST-C Attending Provider Active Start: September 29, 2024 Tourist Information Assistant Relationship Specialty Start Date End Date Maurice Rincon MD [address] [place] [address] PCP - General Internal Medicine 09/21/24 Team [...] Provider Active Star t: November 01, 2024 DrElizabeth Fuchs MD Other Provider Active Start: November [...] Inactive Member Role Status Dates Josy Elias ALTERATION SPECIALIST-C Primary Care Provider Active Start: December 26, 2024 End: December 26, 2024 Dr. Boone Carvajal , Emergency Provider Active Start: December 26, 2024 End: December 26, 2024 Team Status: Inactive Member Role Status Dates Josy Elias ALTERATION SPECIALIST-C Primary Care Provider Active Start: December 30, 2024 End: December 30, 2024 Dr. Mina Blood , Emergency Provider Active Start: December 30, 2024 End: December 30, 2024 Team Status: Active Member Role Status Dates Josy Elias ALTERATION SPECIALIST-C Primary Care Provider Active Start: January 02, 2025 Dr. Roddy Reeves , Emergency Provider Active Start: January 02, 2025 Dr. Buster Fuchs MD Admit Provider Active Start: January 02, 2025 Dr. Buster Fuchs MD Attending Provider Active Start: January 02, 2025 Dr. Buster Fuchs MD Other Provider Active Start: January 02, 2025 Team Status: Active Member Role Status Dates Josy Elias ALTERATION SPECIALIST-C Primary Care Provider Active Start: January 09, 2025 Dr. Breann Mendez DO Emergency Provider Active S tart: January 09, 2025 Dr. Yaritza Leo , Admit Provider Active Start : January 09, 2025 Dr. Yaritza Leo , Attending Provider Active S tart: January 09, 2025 Team Status: Active Member Role Status Dates Josy Elias ALTERATION SPECIALIST-C Primary Care Provider Active Start: January 11, [...] 2024 End: November 11, 2024 Dr. Alber Dnun MD Emergency Provider [...] 2024 End: November 11, 2024 Yue Delgadillo ALTERATION SPECIALIST, ALTERATION SPECIALIST-C Other Provider Active St art: October 29, [...] Sta rt: November 10, 2024 Yue Delgadillo ALTERATION SPECIALIST, ALTERATION SPECIALIST-C Other Provider Active St art: November 10, [...] Active Start: November 22, 2024 Dr. Jae Mosteller , DO Admit [...] Member Role/Relationship Status Dates Josydominique Elias , ALTERATION SPECIALIST-C Primary Care Provider Active Start: December 07, 2024 End: December 07, 2024 Josydominique Elias , ALTERATION SPECIALIST-C Attending Provider Active Start: December 07, 2024 End: December 07, 2024 Team Status: Inactive Member Role/Relationship Status Dates Josydominique Baumannhoantoinette , ALTERATION SPECIALIST-C Primary Care Provider Active Start: December 15, 2024 End: December 15, 2024 Josydominique Elias , ALTERATION SPECIALIST-C Attending Provider Active Start: December 15, 2024 End: December 15, 2024 Josydominique Elias , ALTERATION SPECIALIST-C Referring Provider Active Start: December 15, 2024 End: December 15, 2024 Team Status: Inactive Member Role/Relationship Status Dates Josydominique Elias , ALTERATION SPECIALIST-C Primary Care Provider Active Start: December 26, 2024 End: December 26, 2024 Dr. Boone Carvajal DO Attending Provider Active Start: December 26, 2024 End: December 26, 2024 Dr. Boone Carvajal DO Emergency Provider Active Start: December 26, 2024 End: December 26, 2024 Team Status: Inactive Member Role/Relationship Status Dates Josy Elias ALTERATION SPECIALIST-C Primary Care Provider Active Start: December 30, 2024 End: December 30, 2024 Dr. Mina Blood DO Attending Provider Active Start: December 30, 2024 End: December 30, 2024 Dr. Mina Blood DO Emergency Provider Active Start: December 30, 2024 End: December 30, 2024 Team Status: Inactive Member Role/Relationship Status Dates Josy Elias ALTERATION SPECIALIST-C Primary Care Provider Active Start: January 02, [...] Active Member Role/Relationship Status Dates Josy Elias ALTERATION SPECIALIST-C Primary Care Provider Active Start: January 03, [...] Active Member Role/Relationship Status Dates Josy Elias ALTERATION SPECIALIST-C Primary Care Provider Active Start: January 04, [...] Active Member Role/Relationship Status Dates Josy Elias ALTERATION SPECIALIST-C Primary Care Provider Active Start: January 05, [...] Inactive Member Role/Relationship Status Dates Josy Elias ALTERATION SPECIALIST-C Primary Care Provider Active Start: January 09, [...] Status: Active Member Role/Relationship Status Dates [facility] ALTER[facility]-C Primary Care Provider Active Start: January 11, [...] Active Member Role/[facility]hip Status [facility] Active Start: January 11, [...] Active Member Role/Relationship Status Dates Josy Elias ALTERATION SPECIALIST-C Primary Care Provider Active Start: January 15, 2025 Dr. Breann Mendez DO Emergency Provider Active S tart: January 15, 2025 Dr. Yaritza Leo DO Admit Provider Active Start : January 15, 2025 Dr. Yraitza Leo DO Other Provider Active Start : [...] Active Member Role/Relationship Status Dates Josy Elias ALTERATION SPECIALIST-C Primary Care Provider Active Start: January 16, [...] Active Member Role/Relationship Status Dates Josy Elias ALTERATION SPECIALIST-C Primary Care Provider Active Start: January 17, [...] Active Member Role/Relationship Status Dates Josy Elias ALTERATION SPECIALIST-C Primary Care Provider Active Start: January 18, [...] Active Member Role/Relationship Status Dates Josy Elias ALTERATION SPECIALIST-C Primary Care Provider Active Start: January 20, [...] Active Member Role/Relationship Status Dates Dr. Danny Klusty-Lucero , DO Emergency Provider Activ e Start: [...] 2025 End: February 08, 2025 Dr. Mina Andes , DO Emergency Provider Active Start: February [...] Josy Elias NP-[place] Primary Care Provider Active Team Status: Inactive [...] 2024 End: November 11, 2024 Yue Delgadillo ALTERATION SPECIALIST, ALTERATION SPECIALIST-C Other Provider Active St art: October 29, [...] Provider Active Start: December 01, 2024 Dr. Ktahie Powers MD Admit Provider Active Star t: [...] Inactive Member Role/Relationship Status Dates Josy Elias ALTERATION SPECIALIST-C Primary Care Provider Active Start: December 07, 2024 End: December 07, 2024 Josy Elias NP-C Attending Provider Active Start: December 07, 2024 End: December 07, 2024 Team Status: Inactive Member Role/Relationship Status Dates Josy Elias ALTERATION SPECIALIST-C Primary Care Provider Active Start: December 15, 2024 End: December 15, 2024 Josy Elias NP-C Attending Provider Active Start: December 15, 2024 End: December 15, 2024 Josy Elias NP-C Referring Provider Active Start: December 15, 2024 End: December 15, 2024 Team Status: Inactive Member Role/Relationship Status Dates Josy Elias ALTERATION SPECIALIST-C Primary Care Provider Active Start: December 26, 2024 End: December 26, 2024 Dr. Boone Carvajal DO Attending Provider Active Start: December 26, 2024 End: December 26, 2024 Dr. Boone Carvajal DO Emergency Provider Active Start: December 26, 2024 End: December 26, 2024 Team Status: Inactive Member Role/Relationship Status Dates Josy Elias , ALTERATION SPECIALIST-C Primary Care Provider Active Start: December 30, 2024 End: December 30, 2024 Dr. Mina Blood DO Attending Provider Active Start: December 30, 2024 End: December 30, 2024 Dr. Mina Blood DO Emergency Provider Active Start: December 30, 2024 End: December 30, 2024 Team Status: Inactive Member Role/Relationship Status Dates Josy Elias ALTERATION SPECIALIST-C Primary Care Provider Active Start: January 02, [...] Active Member Role/Relationship Status Dates Josy Elias ALTERATION SPECIALIST-C Primary Care Provider Active Start: January 03, [...] Active Member Role/Relationship Status Dates Josy Elias ALTERATION SPECIALIST-C Primary Care Provider Active Start: January 04, [...] Active Member Role/Relationship Status Dates Josy Elias ALTERATION SPECIALIST-C Primary Care Provider Active Start: January 05, [...] Inactive Member Role/Relationship Status Dates Josy Elias ALTERATION SPECIALIST-C Primary Care Provider Active Start: January 09, [...] Active Member Role/Relationship Status Dates Josy Elias ALTERATION SPECIALIST-C Primary Care Provider Active Start: January 10, 2025 Dr. Breann Mnedez DO Emergency Provider Active S tart: January [...] January 10, 2025 Dr. Bola Meraz , Attending Provider Active S tart: January 10, [...] Active Member Role/Relationship Status Dates Josy Elias ALTERATION SPECIALIST-C Primary Care Provider Active Start: January 11, [...] Active Member Role/Relationship Status Dates Josy Elias ALTERATION SPECIALIST-C Primary Care Provider Active Start: January 12, [...] -C Primary Care Provider Active Start: January 14, [...] Active Member Role/Relationship Status Dates Josy Elias ALTERATION SPECIALIST-C Primary Care Provider Active Start: January 15, [...] Ash , Other Provider Active Start: February 16, 2025 [...] Pena Primary Care Provider Active Start: February 24, 2025 End: February 25, 2025 Julita Glover Attending Provider Active Sta rt: February 24, 2025 End: February 25, 2025 YG Pena Referring Provider Active Start: February 24, 2025 End: February 25, 2025 Josy Elias ALTERATION SPECIALIST-C Other Provider Active Star t: February 24, 2025 End: February 25, 2025 Team Status: Active Member Role/Relationship Status Dates Josy Elias ALTERATION SPECIALIST-C Primary Care Provider Active Start: February 25, 2025 Dr. Herberth Carlson MD Emergency Provider Active Start: February 25, 2025 Dr. Kathie Powers MD Attending Provider Active Start: February 25, 2025 Team Status: Inactive Member Role/Relationship Status Dates Josy Elias ALTERATION SPECIALIST-C Primary Care Provider Active Start: February 25, [...] Active Member Role/Relationship Status Dates Josy Elias ALTERATION SPECIALIST-C Primary Care Provider Active Start: February 25, 2025 Dr. Herberth Carlson MD Emergency Provider Active Start: February 25, 2025 Dr. Kathie Powers MD Admit Provider Active Star t: February 25, 2025 Dr. Kathie Powers MD Other Provider Active Star t: February 25, 2025 Dr. Niranjan Li DO Attending Provider Active Start: February 25, 2025 Team Status: Active Member Role/Relationship Status Dates Josy Elias ALTERATION SPECIALIST-C Primary Care Provider Active Start: February 26, [...] Active Member Role/Relationship Status Dates Josy Elias ALTERATION SPECIALIST-C Primary Care Provider Active Start: February 27, [...] Member Role/Relationship Status Dates Josydominique Baumannhof , ALTERATION SPECIALIST-C Primary Care Provider Active Start: March 04, 2025 DIANE BILLE Attending Provider Active Start: [facility] 2024 DAINE, BILLE Referring Provider Active Start: [facility] 2024 Team Status: Inactive Member Role/Relationship Status Dates Josy Tannhof , ALTERATION SPECIALIST-C Primary Care Provider Active Start: March 10, 2025 End: March 10, 2025 Josy Tannhof , ALTERATION SPECIALIST-C Referring Provider Active Start: March 10, 2025 End: March 10, 2025 Dr. Roby Balderas MD Attending Provider Active Start: March 10, 2025 End: March 10, 2025 Team Status: Inactive Member Role/Relationship Status Dates Josy Tannhof , ALTERATION SPECIALIST-C Primary Care Provider Active Start: March 11, 2025 End: March 11, 2025 Dr. Alber Dunn MD Emergency Provider Active S tart: March 11, 2025 End: March 11, 2025 Team Status: Inactive Member Role/Relationship Status Dates Josy Tannhof , ALTERATION SPECIALIST-C Primary Care Provider Active Start: December 15, 2024 End: December 15, 2024 Josydominique Baumannhof , ALTERATION SPECIALIST-C Attending Provider Active Start: December 15, 2024 End: December 15, 2024 Josy Tannhof , ALTERATION SPECIALIST-C Referring Provider Active Start: December 15, 2024 End: December 15, 2024 Team Status: Inactive Member Role/Relationship Status Dates Josydominique Baumannhof , ALTERATION SPECIALIST-C Primary Care Provider Active Start: December 26, 2024 End: December 26, 2024 Dr. Boone Carvajal DO Attending Provider Active Start: December 26, 2024 End: December 26, 2024 Dr. Boone Carvajal DO Emergency Provider Active Start: December 26, 2024 End: December 26, 2024 Team Status: Inactive Member Role/Relationship Status Dates Josy Elias ALTERATION SPECIALIST-C Primary Care Provider Active Start: December 30, 2024 End: December 30, 2024 Dr. Mina Blood DO Attending Provider Active Start: December 30, 2024 End: December 30, 2024 Dr. Mina Blood DO Emergency Provider Active Start: December 30, 2024 End: December 30, 2024 Team Status: Inactive Member Role/Relationship Status Dates Josy Elias ALTERATION SPECIALIST-C Primary Care Provider Active Start: January 02, [...] Active Member Role/Relationship Status Dates Josy Elias ALTERATION SPECIALIST-C Primary Care Provider Active Start: January 03, [...] Active Member Role/Relationship Status Dates Josy Elias ALTERATION SPECIALIST-C Primary Care Provider Active Start: January 04, [...] Active Member Role/Relationship Status Dates Josy Elias ALTERATION SPECIALIST-C Primary Care Provider Active Start: January 05, [...] Inactive Member Role/Relationship Status Dates Josy Elias ALTERATION SPECIALIST-C Primary Care Provider Active Start: January 09, [...] Active Member Role/Relationship Status [facility] Active Start: January 11, [...] Active Member Role/Relationship Status Dates Josy Elias [facility] Primary Care Provider Active Start: January 11, 2025 Dr. Breann Mendez DO Emergency Provider Active S tart: January 11, 2025 Dr. Yaritza Leo DO Admit Provider Active Start : January 11, 2025 Dr. Yaritza Leo DO Other Provider Active Start : January 11, 2025 Dr. Ceilo Tovar MD Attending Provider Active Start: January 11, 2025 Dr. Cielo Tovar MD Other Provider Active St art: January 11, 2025 Dr. Jefferson Malave MD Other Provider Active St art: January 11, 2025 Team Status: Active Member Role/Relationship Status Dates [facility] Active Start: January 11, [...] Active Member Role/Relationship Status Dates Josy Elias NP- Primary Care Provider Active Start: January 14, [...] Active Member Role/Relationship Status Dates Josy Elias ALTERATION SPECIALIST-C Primary Care Provider Active Start: January 15, [...] Active Member Role/Relationship Status Dates Josy Elias ALTERATION SPECIALIST-C Primary Care Provider Active Start: January 16, [...] Active Member Role/Relationship Status Dates Josy Elias ALTERATION SPECIALIST-C Primary Care Provider Active Start: January 17, [...] Active Member Role/Relationship Status Dates Josy Elias ALTERATION SPECIALIST-C Primary Care Provider Active Start: January 18, 2025 Dr. Breann Mendez DO Emergency Provider Active S tart: January 18, 2025 Dr. Yaritza Leo DO Admit Provider Active Start : January 18, 2025 Dr. Yaritza Leo DO Other Provider Active Start : January 18, 2025 Dr. Jefferson Malave MD Other Provider Active St art: January 18, 2025 Dr. lAeyda Bautista MD Other Provider Active Star t: [...] Active Member Role/Relationship Status Dates Josy Elias ALTERATION SPECIALIST-C Primary Care Provider Active Start: January 20, [...] 08, 2025 Dr. Mina Blood , DO Attending Provider Active Start: February 07, 2025 End: February 08, 2025 Dr. Mina Blood DO Emergency Provider Active Start: February 07, 2025 End: February 08, 2025 Team Status: Inactive Member Role/Relationship Status Dates Dr. Jerald Sherwood MD Primary Care Provider Active Start: February 11, 2025 End: February 11, 2025 Dr. Mina Blood , Attending Provider Active Start: February 11, 2025 [...] Ash , Admit Provider Active Start: February 16, 2025 End: February 17, 2025 Dr. Jae Ash , DO Other Provider Active Start: February 16, 2025 End: February 17, 2025 Dr. Niranjan Li , Other Provider Active St art: February 16, [...] Pena Primary Care Provider Active Start: February 24, 2025 End: February 25, 2025 Julita Glover Attending Provider Active Sta rt: February 24, 2025 End: February 25, 2025 YG Pena Referring Provider Active Start: February 24, 2025 End: February 25, 2025 YG Pena Other Provider Active Star t: February 24, 2025 End: February 25, 2025 Team Status: Active Member Role/Relationship Status Dates Josy Elias ALTERATION SPECIALIST-C Primary Care Provider Active Start: February 25, 2025 Dr. Herberth Carlson MD Emergency Provider Active Start: February 25, 2025 Dr. Kathie Powers MD Attending Provider Active Start: February 25, 2025 Team Status: Inactive Member Role/Relationship Status Dates Josy Elias ALTERATION SPECIALIST-C Primary Care Provider Active Start: February 25, [...] Active Member Role/Relationship Status Dates Josy Elias ALTERATION SPECIALIST-C Primary Care Provider Active Start: February 26, [...] Active Member Role/Relationship Status Dates Josy Elias ALTERATION SPECIALIST-C Primary Care Provider Active Start: February 27, [...] Member Role/Relationship Status Dates Josy Elias , ALTERATION SPECIALIST-C Primary Care Provider Active Start: March 04, 2025 End: March 04, 2025 MINDY CONTRERAS Attending Provider Active Start: [facility] 2024 End: March 04, 2025 MINDY CONTRERAS Referring Provider Active Start: [facility] 2024 End: March 04, 2025 Team Status: Inactive Member Role/Relationship Status Dates Josy Elias , ALTERATION SPECIALIST-C Primary Care Provider Active Start: March 10, 2025 End: March 10, 2025 Josy Elias ALTERATION SPECIALIST-C Referring Provider Active Start: March 10, 2025 End: March 10, 2025 Dr. Roby Balderas MD Attending Provider Active Start: March 10, 2025 End: March 10, 2025 Team Status: Inactive Member Role/Relationship Status Dates Josy Elias , ALTERATION SPECIALIST-C Primary Care Provider Active Start: March 11, 2025 End: March 11, 2025 Dr. Alber Dunn MD Attending Provider Active S tart: March 11, 2025 End: March 11, 2025 Dr. Alber Dunn MD Emergency Provider Active S tart: March 11, 2025 End: March 11, 2025 Team Status: Inactive Member Role/Relationship Status Dates Josy Elias , ALTERATION SPECIALIST-C Primary Care Provider Active Start: March 30, 2025 End: March 30, 2025 Dr. Roby Balderas MD Attending Provider Active Start: March 30, 2025 End: March 30, 2025 Dr. Roby Balderas MD Referring Provider Active Start: March 30, 2025 End: March 30, 2025 Team Status: Active Member Role/Relationship Status Dates Josy Elias ALTERATION SPECIALIST-C Primary Care Provider Active Start: March 30, 2025 Dr. Roby Balderas MD Attending Provider Active Start: March 30, 2025 Dr. Roby Balderas MD Referring Provider Active Start: March 30, 2025 Dr. Roby Balderas MD Other Provider Active Start: March 30, 2025 Team Status: Inactive Member Role/Relationship Status Dates Josy Elias ALTERATION SPECIALIST-C Primary Care Provider Active Start: April 03, 2025 End: April 03, 2025 Dr. Jose Fox MD Emergency Provider Active Sta rt: April 03, 2025 End: April 03, 2025 Team Status: Active Member Role/Relationship Status Dates Josy Elias ALTERATION SPECIALIST-C Primary Care Provider Active Start: April 07, 2025 Dr. Rachel Joiner DO Emergency Provider Active Start: April 07, 2025 Dr. Maria Guadalupe Shore MD Attending Provider Active Start: April 07, 2025 Team Status: Active Member Role/Relationship Status Dates Josy Elias ALTERATION SPECIALIST-C Primary Care Provider Active Start: April 07, 2025 Dr. Rachel Joiner DO Emergency Provider Active Start: April 07, 2025 Dr. Maria Guadalupe Shore MD Admit Provider Active St art: April 07, 2025 Dr. Maria Guadalupe Shore MD Attending Provider Active Start: April 07, 2025 Team Status: Inactive Member Role/Relationship Status Dates Josy Elias ALTERATION SPECIALIST-C Primary Care Provider Active Start: April 07, [...] Member Role/Relationship Status Dates Josy Elias , ALTERATION SPECIALIST-C Primary Care Provider Active Start: April 08, [...] YG Pena Primary Care Provider Active Start: April 09, [...] YG Pena Primary Care Provider Active Start: April 10, [...] Sta rt: April 10, 2025 Dr. Rick Calrin DO Other Provider Active S tart: April 10, 2025 (unrecognized sect ion and content) No Status Records FoundNo Status Records FoundNo Status Records FoundNo Status Records Found INFORMATION SOURCE (unrecogn ized section and content) DATE CREATED AUTHOR 10/10/2024 [facility] DATE CREATED AUTHOR AUTHOR'S ORGANIZ ATION 12/13/2024 [facility] DATE CREATED AUTHOR AUTHOR'S ORGANIZ ATION 02/18/2025 [facility] DATE CREATED AUTHOR AUTHOR'S ORGANIZ ATION 04/28/2025 [facility] Source Comments (unrecognize d section and content) In the event this informatio n is protected by the Federal Confidentiality of Alcohol and Drug Abuse Patient Records regulations: The Federal rules restrict any use of the information to criminally investigate or prosecute any alcohol or drug abuse patient.[facility] the event this information is protected by the Federal Confidentiality of Alcohol and Drug Abuse Patient Records regulations: The Federal rules restrict any use of the information to criminally investigate or prosecute any alcohol or drug abuse patient.[facility] the event this information is protected by the Federal Confidentiality of Alcohol and Drug Abuse Patient Records regulations: The Federal rules restrict any use of the information to criminally investigate or prosecute any alcohol or drug abuse patient.[facility] North[facility] the event this information is protected by the Federal Confidentiality of Alcohol and Drug Abuse Patient Records regulations: The Federal rules restrict any use of the information to criminally investigate or prosecute any alcohol or drug abuse patient.[facility] NorthIn the event this information is protected by the Federal Confidentiality of Alcohol and Drug Abuse Patient Records regulations: The Federal rules restrict any use of the information to criminally investigate or prosecute any alcohol or drug abuse patient.[facility] NorthIn the event this information is protected by the Federal Confidentiality of Alcohol and Drug Abuse Patient Records regulations: The Federal rules restrict any use of the information to criminally investigate or prosecute any alcohol or drug abuse patient.[facility] NorthIn the event this information is protected by the Federal Confidentiality of Alcohol and Drug Abuse Patient Records regulations: The Federal rules restrict any use of the information to criminally investigate or prosecute any alcohol or drug abuse patient.[facility] NorthIn the event this information is protected by the Federal Confidentiality of Alcohol and Drug Abuse Patient Records regulations: The Federal rules restrict any use of the information to criminally investigate or prosecute any alcohol or drug abuse patient.[facility] NorthIn the event this information is protected by the Federal Confidentiality of Alcohol and Drug Abuse Patient Records regulations: The Federal rules restrict any use of the information to criminally investigate or prosecute any alcohol or drug abuse patient.[facility] NorthIn the event this information is protected by the Federal Confidentiality of Alcohol and Drug Abuse Patient Records regulations: The Federal rules restrict any use of the information to criminally investigate or prosecute any alcohol or drug abuse patient.[facility] NorthIn the event this information is protected by the Federal Confidentiality of Alcohol and Drug Abuse Patient Records regulations: The Federal rules restrict any use of the information to criminally investigate or prosecute any alcohol or drug abuse patient.[facility] FOR RECORDS PERTAINING TO PATIENTS WHO ARE [...] BE BASED ON THE PRIMARY CLINICAL RECORDS. [employer] [facility]. provides no warranty or guarantee of the accuracy or completeness of information in this document.
[2025-05-06 21:28] LABS: Color, Urine Amber (Yellow); Glucose, Dipstick Normal (Normal); Ketone-Dipstick Negative (Negative); Leukocyte Esterase-Dipstick 500 /ul (Negative); Nitrite-Dipstick Negative (Negative); Occult Blood-Urine 250 /ul (Negative); Protein-Dipstick 100 mg/dl (Negative); Specific Gravity, Urine 1.010 (1.002-1.030); Urine Bilirubin Dipstick Negative (Negative)
[2025-05-06 21:41] LABS: Red Blood Cells-Urine 25-50 SEEN /hpf (0-5)
[2025-05-06 21:42] LABS: Squamous Epithelial Cells - UA 0-5 SEEN /hpf (0-5); Transitional Epithelial - Ur 0-5 SEEN /hpf (0-5)
[2025-05-06 22:00] VITALS: BP 99/62; PULSE 68
[2025-05-06 23:00] VITALS: BP 94/59; PULSE 68
--- NOTE | 2025-05-06 23:28 | HP.PCM.HOS_ITS ---
HPI - General General Date of Admission: 05/06/25 Date of Service: 05/06/25 Chief Complaint: abdominal cramping, N/V HPI Narrative The patient is a 59 y/o M w/ PMHx: CKD stage II per GFR trending, Chronic anemia/iron deficiency anemia, ABBY, HTN, HLD, Diabetes mellitus type II, Nonalcoholic cirrhotic liver disease, Former tobacco use, Persistent left-sided staghorn calculi with stents in place following with Dr. Rascon who presents to the [facility] ED on 05/06/2025 with history of several days of abdominal cramping and aching with nausea and emesis on day of presentation with reportedly no abdominal paracenteses for several months, previously having a PleurX catheter however unfortunately did come out and patient at that time had been instructed to follow-up with his surgeon with no reported concurrent diarrhea nor any fevers or chills prompting ED evaluation. Workup in the ED included T98.6, heart rate 89, BP initially 88/58, respiratory rate 18, 92% on room air with most recent repeat vitals heart rate 68, BP 100/62, respiratory rate 16, 94% on room air, CBC with WBC 8.4, hemoglobin 10.8, MCV 86.4, platelet 156 without marked shift, CMP with sodium 131, carbon oxide 18.4, BUN/Cr 29/1.82, GFR 43, T. bili 1.37, AST/LT 41/26, alk phos 122, ammonia 298, lipase 60, urinalysis with turbid appearing urine, specific gravity 1.010, protein 100, occult blood 250, negative nitrite, leukocyte esterase 500, urine RBCs 25-50 with urine WBCs greater than 100 with 1+ urine bacteria, urine culture pending per ED CT abdomen and pelvis diffuse ground glass densities in the lungs possibly pulmonary edema, liver cirrhosis with no marked ascites evident. In the ED patient ministered 1 L normal saline as well as Rocephin 1 gm IV x 1 and lactulose 20 gm x 1. [facility] Medical History Diffuse abdominal pain Acute hepatic encephalopathy Hyperammonemia Elevated liver enzymes Cirrhosis of liver with ascites Decompensated cirrhosis History of diabetes mellitus Chronic anemia VRE (vancomycin resistant enterococcus) culture positive Spinal stenosis, lumbar region with neurogenic claudication Umbilical hernia Chronic hyponatremia Weakness Diarrhea Sepsis Acidosis, lactic Acute hypotension Acute UTI Chronic hypotension Obesity (BMI 30-39.9) Chronic back pain ISABEL (acute kidney injury) Hypotension Hyperbilirubinemia Liver cirrhosis secondary to HARRIS (nonalcoholic steatohepatitis) HLD (hyperlipidemia) HTN (hypertension) Thrombocytopenia Chronic anemia Former tobacco use Diabetes mellitus, type 2 ABBY on CPAP Back pain Home Medications ?Medication ?Instructions ?Recorded ?Last Taken ?Type acetaminophen 500 mg tablet 1,000 mg PO Q8 PRN fever o r pain 10/28/24 Unknown History cyclobenzaprine 10 mg tablet 10 mg PO QHS muscle relax er 01/02/25 02/15/25 History pen needle, diabetic 31 gauge x #1,200 ea 01/31/25 Unk nown Rx 12/17 (Pen Needle) insulin glargine-yfgn 100 unit/mL 30 unit subcut QHS b lood glucose 03/10/25 Unknown History (3 mL) subcutaneous pen insulin lispro 100 unit/mL 20 unit subcut TIDAC Unknown History subcutaneous pen (Humalog KwikPen (U-100) Insulin) metformin 500 mg tablet 500 mg PO QHS blood glucose 04/07/25 Unknown History oxycodone 5 mg tablet 5 mg PO TID PRN PRN dyspnea 04/07/25 Unknown History sodium bicarbonate 650 mg tablet 650 mg PO BID supplem ent 04/07/25 Unknown History ascorbic acid (vitamin C) 500 mg 500 mg PO BID supplem ent #60 tabs 04/10/25 Unknown Rx tablet carvedilol 3.125 mg tablet 6.25 mg (2 x 3.125 mg) PO B ID BP 1 04/10/25 03/30/25 Rx month #60 tabs ferrous sulfate 325 mg (65 mg 325 mg PO QODAY suppleme nt #30 tabs 04/10/25 Unknown Rx iron) tablet furosemide 40 mg tablet 40 mg PO DAILY diuresis 30 d ays 04/10/25 Unknown Rx #30 tabs lactulose 10 gram/15 mL oral 10 g (15 mL) PO 4XD liver 30 days 04/10/25 Unknown Rx solution #1 mL spironolactone 100 mg tablet 150 mg (1.5 x 100 mg) PO DAILY BP 04/10/25 Unknown Rx 30 days #45 tabs insulin lispro 100 unit/mL subcut blood glucose Unknown History subcutaneous half-unit pen Allergy/AdvReac Type Severity Reaction Status Date / Time No Known Allergies Allergy Verified 05/06/25 18:56 Family History Mother Heart disease Hypertension CAD (coronary artery disease) Myocardial infarction Father Hypertension Heart disease Heart failure Surgical History History of tonsillectomy and adenoidectomy Social History household members: other details: Lives with his ex /her . Smoking Status: Former smoker how long ago did patient quit smoking: Quit Fall 2023, smoked 1.5 ppd since teen until quit. alcohol intake: never substance use type: does not use additional social history: EX and a friend help with his care. ROS ROS Narrative Admission Review of Systems: CONSTITUTIONAL: No weight loss, fever, chills, + weakness or fatigue. HEENT: Eyes: No visual loss, blurred vision, double vision or yellow sclerae. Ears, Nose, Throat: No hearing loss, sneezing, congestion, runny nose or sore throat. SKIN: No rash or itching, lesions, wounds. CARDIOVASCULAR: No chest pain, chest pressure or chest discomfort, palpitations, edema, orthopnea, syncopal events. RESPIRATORY: No shortness of breath, cough or sputum, wheezing, hemoptysis. GASTROINTESTINAL: + anorexia, nausea, vomiting, abdominal discomfort. No diarrhea, constipation, melena, BRBPR. GENITOURINARY: + Hematuria. No dysuria, frequency, urgency or retention. NEUROLOGICAL: No headache, dizziness, syncope, paralysis, ataxia, numbness or tingling in the extremities, focal weakness, change in bowel or bladder control, seizure. MUSCULOSKELETAL: + muscle, back pain, joint pain or stiffness. HEMATOLOGIC: + Chronic anemia, easy bleeding/bruising. LYMPHATICS: No enlarged nodes. No history of splenectomy. PSYCHIATRIC: No history of depression or anxiety. ENDOCRINOLOGIC: No reports of sweating, cold or heat intolerance. No polyuria or polydipsia. ALLERGIES: No history of asthma, hives, eczema or rhinitis. Vital Signs Vital Signs Vital Signs: 05/06/25 18:56 05/06/25 19:39 05/06/25 20:00 Temperature 98.6 F Temperature Source Temporal Pulse Rate 89 83 78 Respiratory Rate 18 16 16 Blood Pressure 88/58 L 94/65 98/63 Blood Pressure Mean 68 74 74 Pulse Ox 92 98 94 Oxygen Delivery Method Room Air Room Air 05/06/25 21:00 05/06/25 22:00 05/06/25 23:00 Temperature Temperature Source Pulse Rate 68 68 68 Respiratory Rate Blood Pressure 100/62 99/62 94/59 L Blood Pressure Mean 74 74 70 Pulse Ox Oxygen Delivery Method Weight Weight: 188 lb 0.869 oz Body Mass Index (BMI) 27.7 Physical Exam Narrative Physical Examination: General: Awake but slow speech, fatigued appearing, answering questions but slowly and not thoroughly, laying in the ED bed, NAD. Skin: Not markedly jaundiced as has been prior, normal turgor, no cyanosis, occasional abrasion. HEENT: AT/NC, EOMI, PERRLA, mild scleral injection, dry MM, no carotid bruits or JVD noted. Lungs: Diminished, greater bases, no evidence of any distress, no rales, ronchi or wheezing. Heart: Regular rate and rhythm; no gallop, rub audible. Abdomen: Soft, obese, mild generalized discomfort palpation but no guarding or rebound, no distention, no fluid wave, mildly hyperactive BS, positive HM, small umbilical hernia present. Extremities: No cyanosis, no clubbing, no marked peripheral edema noted. Neurological: Awake but slow speech, fatigued appearing, answering questions but slowly and not thoroughly, cognitive function decreased from baseline intact; pupils equally reactive to light and accommodation, cranial nerves grossly normal, moving all 4 extremities, strength severely globally decreased secondary to acute presentation. Psychiatric: Affect appears flat, lethargic, no acute evidence of depressive or anxiety feelings. Results Lab / Micro Data 05/06/25 20:12 05/06/25 20:12 Labs: Laboratory Results - last 24 hr 05/06/25 20:12: WBC 8.4, RBC 3.59 L, Hgb 10.8 L, Hct 31.0 L, MCV 86.4, MCH 30.1, MCHC 34.8, RDW Std Deviation 51.5 H, RDW Coeff of Francis 16.4 H, Plt Count 156, MPV 11.4, Immature Gran % (Auto) 0.400, Neut % (Auto) 60.8, Lymph % (Auto) 19.4, M lucy % (Auto) 11.2 H, Eos % (Auto) 7.6 H, Baso % (Auto) 0.6, Absolute Neuts (auto) 5.1, Absolute Lymphs (auto) 1.63, Nucleated RBC % 0, Sodium 131 L, Potassium 3.3, Chloride 100, Carbon Dioxide 18.4 L, Anion Gap 13, BUN 29 H, C reatinine 1.82 H, Estim Creat Clear Calc 47.90 L, Est GFR (MDRD) Non-Af 43 L, BUN/Creatinine Ratio 15.7, Glucose 89, Calcium 8.8, Total Bilirubin 1.37 H, AST 41 H, ALT 26, Alkaline Phosphatase 122, Ammonia 298.0 H, Total Protein 5.9, A lbumin 2.8 L, Globulin 3.1, Albumin/Globulin Ratio 0.9, Amylase 40, Lipase 60 05/06/25 21:04: Urine Color Rocio, Urine Clarity Turbid, Urine pH 7.0, Ur Specific Selfridge 1.010, Urine Protein 100 H, Urine Glucose (UA) Normal, Urine Ketones Negative, Urine Occult Blood 250 H, Urine Nitrite Negative, Urine Bilirubin Negative, Urine Urobilinogen Normal, Ur Leukocyte Esterase 500 H, Urine RBC 25-50 SEEN, Urine WBC >100 SEEN, Ur Squamous Epith Cells 0-5 SEEN, Ur Transition Epith Cell 0-5 SEEN, Urine Bacteria 1+, Urine Mucus 0 SEEN Imaging Radiology Impression Abdomen/Pelvis CT 05/06/25 19:47 IMPRESSION: Diffuse ground-glass densities in the lungs may represent pulmonary edema. Liver cirrhosis. No ascites. Reading Location: [facility] Assessment & Plan Assessment/Plan (1) Acute UTI: (2) History of cirrhosis: PLAN: Plan The patient is a 59 y/o M w/ PMHx: CKD stage II per GFR trending, Chronic anemia/iron deficiency anemia, ABBY, HTN, HLD, Diabetes mellitus type II, Nonalcoholic cirrhotic liver disease, Former tobacco use, Persistent left-sided staghorn calculi with stents in place following with Dr. Rascon who presents to the [facility] ED on 05/06/2025 with history of several days of abdominal cramping and aching with nausea and emesis on day of presentation with reportedly no abdominal paracenteses for several months, previously having a PleurX catheter however unfortunately did come out and patient at that time had been instructed to follow-up with his surgeon with no reported concurrent diarrhea nor any fevers or chills prompting ED evaluation. #1. Acute hepatic encephalopathy with Significant hyperammonemia although currently mentating appropriately with chronic nonalcoholic cirrhotic liver disease with associated hypotension, suspect component hypovolemia especially given #2: Will admit to [facility], once oral intake safe with plan for allowance of Na/DM diet, clarfyfing as had prior been on rifaximin, given ISABEL holding Lasix and spironolactone, BP on the lower end thus also holding Coreg but reinitiate once appropriate, will continue to judiciously hydrate, will initiate and continue on aggressive lactulose regimen with oral if able to tolerate otherwise transition to rectal administration. Maintain on fall and aspiration precautions. PT/OT/case management consult for discharge planning. #2. ISABEL on Chronic Kidney Disease Stage II per GFR trending possibly in great part secondary to #3: Admission BUN/Cr 29/1.82, GFR 43, baseline renal function primarily 0.8-1.1, most recently 04/20/2025 creatinine 1.05, will very judiciously hydrate, hold all nephrotoxic medication, will obtain FeNa and repeat CMP in AM. #3. Acute Complicated Urinary Tract Infection: UA upon ED evaluation remarkable, pending UCx, as noted plan for judicious hydration IVFs, monitor I/Os, continue IV Rocephin w/ transition as able pending sensitivities and speciation. #4. Atypical CT chest: Patient with diffuse ground glass densities in the lungs questionable pulmonary edema with liver cirrhosis with no ascites, given presentation with ISABEL on CKD decision to judiciously hydrate, BP also on the low end upon current presentation with suspected actual dehydrated component, will obtain full respiratory viral panel to be cautious, will continue to closely monitor, encourage aggressive I-S, head of bed. #5. Significant debility, adult failure to thrive, multifactorial, secondary to #1, #2, #3, #4 as well as other comorbidities as noted: Complicates presentation, maintain on fall and aspiration precautions, PT/OT/case management consulted for discharge planning. #6. Diabetes mellitus type II: Hold oral home regimen, continue home insulin regimen however when NPO may consider one half administration versus hold pending blood sugar trending, once clinically appropriate allow ADA diet, accu checks w/ ISS. #7. Chronic normocytic anemia/iron deficiency anemia: Admission hemoglobin 10.8, MCV 86.4, baseline hemoglobin primarily 8-9 although recently has been in the 7 range, most recently 04/20/2025 hemoglobin 7.6, may be falsely elevated, will repeat CBC in a.m. to further elucidate, continue iron supplementation once oral intake appropriate. #8. Hypertension: BP in the ED on the low end, suspect medication related with hypovolemia, will temporally hold hypertensive regimen add back once appropriate. #9. Hyperlipidemia: Previously on statin, not currently listed, clarified to be certain. #10. Former tobacco use: Encourage continued tobacco cessation. #11. ABBY: CPAP nightly, given encephalopathy will utilize supplemental oxygen at this time, transition once assure oral airway safe and no concerns for nausea or emesis. #12. DVT prophylaxis: Lovenox. #13. CODE status: Patient MARE is his ex-. Full code based on prior discussions with recent admission. Charges/Coding Visit Charges Inpatient E&M: 88663 Init Hosp L3
--- OUTSIDE RECORDS SUMMARY | 2025-05-06 23:46 | XMS RPT_ITS | CCD ---
Author Organization [facility] Care Team Providers [employer] Sales Representative Name Role Phone Sergey HERNANDEZ, Maurice Soria Primary Care Provider Care Physician, No Primary Primary Care Provider Unavailable Dr. Danny Hutton DO Attending Provider Dr. Danny Hutton DO Emergency Provider Dr. Luis Carlos Anderson DO Emergency Provider Mone HERNANDEZ, Dr. Maria Guadalupe Carlson Admit Provider Dr. Maria Guadalupe Shore MD Referring Provider Dr. Maria Guadalupe Shore MD Other Provider [phone] Rick Carlin DO Attending Provider Erin HERNANDEZ, Dr. Rocha Other Provider Zelalem HERNANDEZ, Dr. Coker Other Provider Dr. Christian Abdi MD Other Provider Dr. Juarez Baird MD Other Provider [phone] Bola Meraz DO Attending Provider Dr. Bola Meraz DO Other Provider Víctor HERNANDEZ, Dr. Hill Alcaraz Other Provider Ashli HERNANDEZ, Dr. Aguilar Other Provider Dr. Yury Canas MD Other Provider [phone] Ashely HERNANDEZ, Dr. Foote Other Provider [phone] Cassandra HERNANDEZ, Dr. Garvin Other Provider [phone] Yamil HERNANDEZ, Dr. Solis Other Provider [phone] Rojas HERNADNEZ, Dr. Enriquez Other Provider Seble HERNANDEZ, Dr. [...] Dr. Niranjan Li DO Attending Provider Dr. aRchel Joiner DO Emergency Provider Caro DO, Dr. Alejandre Admit Provider Unavail able Dr. Hill Caro DO Other Provider Unavail able Teto HERNANDEZ, Dr. Osborn Other Provider Dr. Boone Izquierdo DO Attending Provider Dr. Jae Ash DO Other Provider Karena HERNANDEZ, Dr. Andre Other Provider Abiodun HERNANDEZ, Dr. Foster Rivas Other Provider [phone] Teto HERNANDEZ, Dr. Osborn Referring Provider Nomi HERNANDEZ, Dr. Douglas Other Provider Teto HERNANDEZ, Dr. Osborn Attending Provider Dr. Jae Ash DO Attending Provider Dr. Boone Izquierdo DO Other Provider DIANE CALLAHAN Attending Provider BILLDIANE Parada Referring Provider BILLDIANE Parada Other Provider Bailee BEE PRODUCER-C, Jasmine Attending Provider Shaun HERNANDEZ, Dr. Campo Emergency Provider Caro DO, Dr. Alejandre Attending Provider Unav ailable Care Physician, No Primary Primary Care Provider Unavailable Just[facility] NOYOLA, Dr. Delgado Attending Provider [...] Víctor HERNANDEZ, Dr. Hill Alcaraz Other Provider [phone] Ashli HERNANDEZ, Dr. Aguilar Other Provider Missael HERNANDEZ, Dr. Cotton Other Provider Ashely HERNANDEZ, Dr. Foote Other Provider [phone] Cassandra HERNANDEZ, Dr. Garvin Other Provider Yamil HERNANDEZ, Dr. Solis Other Provider Rojas HERNANDEZ, Dr. Enriquez Other Provider Seble HERNANDEZ, Dr. Hernández Other Provider Desmond HERNANDEZ, Dr. Snow Other [facility] k[facility] Venegas MD, Dr. Whyte Other Provider [phone] Laurent HERNANDEZ, Dr. Raya Other Provider Angely HERNANDEZ, Dr. Silver Other Provider Jazmyne NOYOLA, Dr. Cuevas Other Provider [phone] Carmela HERNANDEZ, Dr. Tam Other Provider Mallorie [...] Referring Provider BILLDIANE Parada Other Provider Bailee BEE PRODUCER-C, Jasmine Attending Provider Shaun HERNANDEZ, Dr. Campo [...] Dr. Scott Weston DO Other Provider Elie BEE PRODUCER-C, Yue Other Provider Caro DO, Dr. Alejandre Referring Provider Unav ailable Shila HERNANDEZ, Dr. Buster Barr Attending Provider Dr. Buster Fuchs MD Referring Provider Dr. Hill Acuña MD Attending Provider Unavaila priscila Powers MD, Dr. Vázquez Other Provider Unavailable Primary Care Provider Radha Carlson MD, Dr. Kevin Emergency Provider Nilsa NOYOLA, Dr. Rowe Admit Provider Gio HERNANDEZ, Dr. Vázquez Admit Provider Tannhof BEE PRODUCER-C, Josy Primary Care Provider Tannhof BEE PRODUCER-C, Josy Attending Provider KATHIE POWERS Referring Unavailable DAY PRICE Admitting Unavailable YOUNG CRUZ Attending Unavailable Care Physician, No Primary Primary Care Provider Unavailable [facility] BEE PRODUCER-C, Josy Referring Provider Wei NOYOLA, Dr. Shook [...] Provider Desmond HERNANDEZ, Dr. Snow Other [facility] karma Mosher MD, Dr. Douglas Other Provider Theo HERNANDEZ, Dr. Whyte Other Provider Laurent HERNANDEZ, Dr. Raya Other Provider Angely HERNANDEZ, Dr. Silver Other Provider Jazmyne NOYOLA, Dr. Cuevas Other Provider Carmela HERNANDEZ, Dr. Tam Other Provider Mallorie HERNANDEZ, Dr. Kelly Other Provider Nuzhat NOYOLA, Dr. Cooper Other Provider Rosendo HERNANDEZ, Dr. Wesley Other Provider [phone] Dylan HERNANDEZ, Dr. Colon Other Provider Dr. [...] Frieda HERNANDEZ, Dr. Jefferson Marte Other Provider Lliy HERNANDEZ, Dr. Maynard Other Provider Guy HERNANDEZ, [...] Jeremi NOYOLA, Dr. Enriquez Other Provider John BEE PRODUCER-C, Mar Attending Provider Presley HERNANDEZ, Dr. Marques [...] Provider Dr. Bola Meraz DO Attending Provider [phone] Dr. Bola Meraz DO Other Provider Víctor HERNANDEZ, Dr. Hill Alcaraz Other Provider Ashli HERNANDEZ, Dr. Aguilar Other Provider [phone] Missael HERNANDEZ, Dr. Cotton Other Provider [phone] Ashely HERNANDEZ, Dr. Foote Other Provider Cassandra [...] Sherrie HERNANDEZ, Dr. Ca Attending Provider Curt BEE PRODUCER-C, Josy Primary Care Provider Curt BEE PRODUCER-C, Josy Attending Provider Shila HERNANDEZ, Dr. Buster [...] Unavailable Maria Guadalupe Shore L Attending Unavailable [facility] Primary Care Unavailable Jose Fox Attending Unavailable [facility], Josy Referring Unavailable [facility] Josy Primary Care Unavailable [facility]y Attending Unavailable Powers, Kathie Admitting Unavailable [...] Consulting Unavailable Hill Acuña Attending Unavailable Hill cAuña Consulting Unavailable Anurag Irene Attending Unavailable Teto, Anurag Consulting Unavailable Boone Izquierdo Attending Unavailable Sherwood, Jerald Primary Care Unavailable Dick Irenesh Attending Unavailable Tannhof, Josy Referring Unavailable Tannhof, Josy Primary Care Unavailable Nelida Harris Attending Unavailable Sherwood, Jerald Referring Unavailable Tannhof, Josy Primary Care Unavailable Roby Balderas Referring Unavailable Roby Balderas Consulting Unavailable Roby Balderas Attending Unavailable [facility] Unavailable Kathie Powers Attending Unavailable Hill Caro Admitting Unavailable Hill Caro Consulting Unavailable Care Physician, No Primary Primary Care Unava ilable Foster Rascon Consulting Unavailable Buster Fuchs Consulting Unavailable Hill Acuña Consulting Unavailable Kathie Powers Consulting Unavailable COLTON ANDERSON Referring Unavailable COLTON ANDERSON Consulting Unavailable Bailee BEE PRODUCER, Jasmine Attending Unavailable Care Physician, No Primary [...] Li Attending Unavailable Kathie Powers Consulting Unavailable [facility], Josy Primary Care Unavailable Rick Carlin Referring Unavailable Rick Carlin Attending Unavailable Rick Carlin Consulting Unavailable Mina Blood Attending Unavailable [facility] Primary Care Unavailable Alber Dunn Attending Unavailable [facility] [place] Primary Care Unavailable Hill Caro Admitting Unavailable Care Physician, No Primary Primary Care Unava ilable Foster Rascon Consulting Unavailable Anurag Irene Attending Unavailable Hill Caro Consulting Unavailable Thai Thurston Consulting Unavailable Josefina Khan Consulting Unavailable Teto, Anurag Consulting Unavailable Jae Ash Attending Unavailable Jae Ash Consulting Unavailable Roby Balderas Attending Unavailable [facility] Referring Unavailable [facility], Josy Primary Care Unavailable Yaritza Leo Attending Unavailable Niranjan Li Attending Unavailable Buster Fuchs Referring Unavailable Niranjan iL Attending Unavailable Boone Izquierdo Attending Unavailable Boone [...] Consulting Unavailable Dhesi, Mason Consulting Unavailable Anel Casye Consulting Unavailable Robin Nobles Consulting Unavailable Kenneth Noland Consulting Unavailable Lupillo Robbins Consulting Unavailable Young Richardson Consulting Unavailable Bola Meraz Attending Unavailable Hill Caro Referring Unavailable Buster Fuchs Attending Unavailable Mina Blood Consulting Unavailable Mina Blood Referring Unavailable Mar Lopez Attending Unavailable Jerald [place] Primary Care Unavailable Roby Balderas Referring Unavailable Roby Balderas Attending Unavailable [facility] Unavailable Boone Izquierdo Attending Unavailable [...] Leo Consulting Unavailable Yaritza Leo Admitting Unavailable [facility] Primary Care Unavailable Anurag Irene Attending Unavailable Jefferson Malave Consulting Unavailable Aleyda Bautista Consulting Unavailable Guy, Cielo Edyta Consulting Unavailable Jae Ash Admitting Unavailable [facility] Primary Care Unavailable Anurag Irene Attending Unavailable [...] Pruett Consulting Unavailable Gwendolyn Logan Consulting Unavailable Setlla Mosher Consulting Unavailable Pato Venegas Consulting Unavailable [...] 10/04/2024 11/03/2024 Active take 2 tablets by [facility] once daily furosemide (LASIX) 20 mg tablet Take 40 mg by mouth once daily. Suspended metFORMIN hydrochloride 500 mg oral tablet (20 sources) Biguanide Start: 04-07-2025 Start: 11-21-2024 End: 03-30-2025 Start: 11-18-2024 [facility] dinner metFORMIN ER (GLUMETZA) [...] preference? Yes take 1 capsule by mo [facility] every six hours as needed [...] 09-02-2024 End: 11-21-2024 [facility] pantoprazole DR (PROTONIX) 40 mg [...] Start: 11-18-2024 take 1 capsule by mo [facility] once daily zinc sulfate 220 [...] different sites No growth in 5 days. [facility] Comment on above: Performed By: #### L 300.3900, M200.1000, L503.5510, L500.3400, L300.4310, L100.0100, L503.6005 ####[facility] [address] [place], [address] CBC W/Diff, Automatedon 09- Absolute Neut Normal 2.0-7.7 [facility] Comment on above: Result Comment: Canc elled via OM: Order cancelled - Patient discharged Performed By: #### L 500.4050, L100.0100 ####[facility] [address] [place], [address] HCT Normal 40-54 [facility] Comment on above: Result Comment: Canc elled via OM: Order cancelled - Patient discharged Performed By: #### L 500.4050, L100.0100 ####[facility] [address] [place], [address] HGB Normal 13.0-16.5 [facility] Comment on above: Result Comment: Canc elled via OM: Order cancelled - Patient discharged Performed By: #### L 500.4050, L100.0100 ####[facility] [address] [place], [address] MCH Normal 27.0-32.0 [facility] Comment on above: Result Comment: Canc elled via OM: Order cancelled - Patient discharged Performed By: #### L 500.4050, L100.0100 ####[facility] [address] [place], [address] MCHC Normal 32-36 [facility] Comment on above: Result Comment: Canc elled via OM: Order cancelled - Patient discharged Performed By: #### L 500.4050, L100.0100 ####[facility] [address] [place], [address] MCV Normal 80-94 [facility] Comment on above: Result Comment: Canc elled via OM: Order cancelled - Patient discharged Performed By: #### L 500.4050, L100.0100 ####[facility] [address] [place], [address] NEUT% Normal 47-70 [facility] Comment on above: Result Comment: Canc elled via OM: Order cancelled - Patient discharged Performed By: #### L 500.4050, L100.0100 ####[facility] [address] [place], [address] PLT Normal 150-450 [facility] Comment on above: Result Comment: Canc elled via OM: Order cancelled - Patient discharged Performed By: #### L 500.4050, L100.0100 ####[facility] [address] [place], [address] RBC Normal 4.6-6.2 [facility] Comment on above: Result Comment: Canc elled via OM: Order cancelled - Patient discharged Performed By: #### L 500.4050, L100.0100 ####[facility] [address] [place], [address] RDW CV Normal 11.6-14.6 [facility] Comment on above: Result Comment: Canc elled via OM: Order cancelled - Patient discharged Performed By: #### L 500.4050, L100.0100 ####[facility] [address] [place], [address] RDW SD Normal 35.1-43.9 [facility] Comment on above: Result Comment: Canc elled via OM: Order cancelled - Patient discharged Performed By: #### L 500.4050, L100.0100 ####[facility] [address] [place], [address] WBC Normal 4.4-11.0 [facility] Comment on above: Result Comment: Canc elled via OM: Order cancelled - Patient discharged Performed By: #### L 500.4050, L100.0100 ####[facility] [address] [place], [address] Comprehensive Metabolic Prof ilon 04-21-2025 ALB Normal 3.5-5.0 [facility] Comment on above: Result Comment: Canc elled via OM: Order cancelled - Patient discharged Performed By: #### L 500.4050, L100.0100 ####[facility] [address] [place], [address] ALK PHOS Normal 40-129 [facility] Comment on above: Result Comment: Canc elled via OM: Order cancelled - Patient discharged Performed By: #### L 500.4050, L100.0100 ####[facility] [address] [place], [address] ALT Normal <=46 [facility] Comment on above: Result Comment: Canc elled via OM: Order cancelled - Patient discharged Performed By: #### L 500.4050, L100.0100 ####[facility] [address] [place], [address] AST Normal <=37 [facility] Comment on above: Result Comment: Canc elled via OM: Order cancelled - Patient discharged Performed By: #### L 500.4050, L100.0100 ####[facility] [address] [place], [address] BUN Normal 4-19 [facility] Comment on above: Result Comment: Canc elled via OM: Order cancelled - Patient discharged Performed By: #### L 500.4050, L100.0100 ####[facility] [address] [place], [address] BUN/CRE Normal 10-20 [facility] Comment on above: Result Comment: Canc elled via OM: Order cancelled - Patient discharged Performed By: #### L 500.4050, L100.0100 ####[facility] [address] [place], [address] Calcium Normal 7.6-11.0 [facility] Comment on above: Result Comment: Canc elled via OM: Order cancelled - Patient discharged Performed By: #### L 500.4050, L100.0100 ####[facility] [address] [place], [address] CL Normal 98-108 [facility] Comment on above: Result Comment: Canc elled via OM: Order cancelled - Patient discharged Performed By: #### L 500.4050, L100.0100 ####[facility] [address] [place], [address] CO2 Normal 21.0-32.0 [facility] Comment on above: Result Comment: Canc elled via OM: Order cancelled - Patient discharged Performed By: #### L 500.4050, L100.0100 ####[facility] [address] [place], [address] CREAT,SERUM Normal 0.70-1.20 [facility] Comment on above: Result Comment: Canc elled via OM: Order cancelled - Patient discharged Performed By: #### L 500.4050, L100.0100 ####[facility] [address] [place], [address] eGFR Normal >60 [facility] Comment on above: Result Comment: Canc elled via OM: Order cancelled - Patient discharged Performed By: #### L 500.4050, L100.0100 ####[facility] [address] [place], [address] GAP Normal 5-15 [facility] Comment on above: Result Comment: Canc elled via OM: Order cancelled - Patient discharged Performed By: #### L 500.4050, L100.0100 ####[facility] [address] [place], [address] GLU Normal 70-99 [facility] Comment on above: Result Comment: Canc elled via OM: Order cancelled - Patient discharged Performed By: #### L 500.4050, L100.0100 ####[facility] [address] [place], [address] Potassium Normal 3.3-5.1 [facility] Comment on above: Result Comment: Canc elled via OM: Order cancelled - Patient discharged Performed By: #### L 500.4050, L100.0100 ####[facility] [address] [place], [address] T BILI Normal 0.00-1.30 [facility] Comment on above: Result Comment: Canc elled via OM: Order cancelled - Patient discharged Performed By: #### L 500.4050, L100.0100 ####[facility] [address] [place], [address] T PROT Normal 5.9-8.4 [facility] Comment on above: Result Comment: Canc elled via OM: Order cancelled - Patient discharged Performed By: #### L 500.4050, L100.0100 ####[facility] [address] [place], [address] Comprehensive Metabolic Profil Normal 133-145 [facility] Comment on above: Result Comment: Canc elled via OM: Order cancelled - Patient discharged Performed By: #### L 500.4050, L100.0100 ####[facility] [address] [place], [address] Urine Cultureon 04-21-2025 URC Below infection leve l. Mixed Gram Positive Organisms Florence Count 1000-10,000 MIXC Mixed contaminants. Submit a new specimen if indicated. Normal [facility] Comment on above: Performed By: #### M 100.2200, L400.0001 ####[facility] [address] [place], [address] Bedside Glucoseon 04-20-2025 FINGERSTICK GLU 201 mg/dL High 74-106 [facility] Comment on above: Result Comment: BRISA GEMENT OF PATIENT CARE PER NURSING PROTOCOL Performed By: #### L 501.080 ####[facility] [address] [place], [address] FINGERSTICK GLU 139 mg/dL High 74-106 [facility] Comment on above: Result Comment: BRISA GEMENT OF PATIENT CARE PER NURSING PROTOCOL Performed By: #### L 501.080 ####[facility] [address] [place], [address] CBC W/Diff, Automatedon 04-04 Absolute Lymph 1.25 X10 3/uL Normal 0.83-4.51 [facility] Comment on above: Performed By: #### L 100.0100, L500.4050 ####[facility] [address] [place], [address] Absolute Neut 3.0 X10 3/uL Normal 2.0-7.7 [facility] Comment on above: Performed By: #### L 100.0100, L500.4050 ####[facility] [address] [place], [address] Basophils/100 WBC (Bld) 0.4 % Normal 0-1 [facility] Comment on above: Performed By: #### L 100.0100, L500.4050 ####[facility] [address] [place], [address] Eosinophils/100 WBC (Bld) 6.0 % High 0-5 [facility] Comment on above: Performed By: #### L 100.0100, L500.4050 ####[facility] [address] [place], [address] Erythrocyte distribution width (RBC) [Ratio] 16.0 % High 11.6-14.6 [facility] Comment on above: Performed By: #### L 100.0100, L500.4050 ####[facility] [address] [place], [address] Hematocrit (Bld) [Volume fraction] 23.0 % Low 40-54 [facility] Comment on above: Performed By: #### L 100.0100, L500.4050 ####[facility] [address] [place], [address] Hemoglobin (Bld) [Mass/Vol] 7.6 g/dL Low 13.0-16.5 [facility] Comment on above: Performed By: #### L 100.0100, L500.4050 ####[facility] [address] [place], [address] IG% 0.400 Normal 0.0-0.9 [facility] Comment on above: Result Comment: IG% - Immature Granulocytes (promyelocytes, myelocytes andmetamyelocytes) > 1% indicates that a LEFT SHIFT is Present. Performed By: #### L 100.0100, L500.4050 ####[facility] [address] [place], [address] Lymphocytes/100 WBC (Bld) 24.0 % Normal 19-41 [facility] Comment on above: Performed By: #### L 100.0100, L500.4050 ####[facility] [address] [place], [address] MCH (RBC) [Entitic mass] 29.9 pg Normal 27.0-32.0 [facility] Comment on above: Performed By: #### L 100.0100, L500.4050 ####[facility] [address] [place], [address] MCHC (RBC) [Mass/Vol] 33.0 g/dL Normal 32-36 [facility] Comment on above: Performed By: #### L 100.0100, L500.4050 ####[facility] [address] [place], [address] MCV (RBC) [Entitic vol] 90.6 fL Normal 80-94 [facility] Comment on above: Performed By: #### L 100.0100, L500.4050 ####[facility] [address] [place], [address] Monocytes/100 WBC (Bld) 12.3 % High 0-10 [facility] Comment on above: Performed By: #### L 100.0100, L500.4050 ####[facility] [address] [place], [address] Neutrophils/100 WBC (Bld) 56.9 % Normal 47-70 [facility] Comment on above: Performed By: #### L 100.0100, L500.4050 ####[facility] [address] [place], [address] Nucleated RBC (Bld) [#/Vol] 0 10*3/uL Normal 0-5 [facility] Comment on above: Performed By: #### L 100.0100, L500.4050 ####[facility] [address] [place], [address] Platelet mean volume (Bld) [Entitic vol] 11.3 fL Normal 6.2-12.0 [facility] Comment on above: Performed By: #### L 100.0100, L500.4050 ####[facility] [address] [place], [address] Platelets (Bld) [#/Vol] 88 10*3/uL Low 150-450 [facility] Comment on above: Performed By: #### L 100.0100, L500.4050 ####[facility] [address] [place], [address] RBC (Bld) [#/Vol] 2.54 10*6/uL Low 4.6-6.2 [facility] Comment on above: Performed By: #### L 100.0100, L500.4050 ####[facility] [address] [place], [address] RDW SD 53.1 fl High 35.1-43.9 [facility] Comment on above: Performed By: #### L 100.0100, L500.4050 ####[facility] [address] [place], [address] WBC (Bld) [#/Vol] 5.2 10*3/uL Normal 4.4-11.0 [facility] Comment on above: Performed By: #### L 100.0100, L500.4050 ####[facility] [address] [place], [address] Comprehensive Metabolic Prof [facility] 04-20-2025 Albumin [Mass/Vol] 2.5 g/dL Low 3.5-5.0 [facility] Comment on above: Performed By: #### L 100.0100, L500.4050 ####[facility] [address] [place], [address] Albumin/Globulin [Mass ratio] 1.0 {ratio} Normal 0.9-2.4 [facility] Comment on above: Performed By: #### L 100.0100, L500.4050 ####[facility] [address] [place], [address] ALK PHOS 108 U/L Normal 40-129 [facility] Comment on above: Performed By: #### L 100.0100, L500.4050 ####[facility] [address] [place], [address] ALT [Catalytic activity/Vol] 19 U/L Normal <=46 [facility] Comment on above: Performed By: #### L 100.0100, L500.4050 ####[facility] [address] [place], [address] AST [Catalytic activity/Vol] 32 U/L Normal <=37 [facility] Comment on above: Performed By: #### L 100.0100, L500.4050 ####[facility] [address] [place], [address] Bilirubin [Mass/Vol] 1.09 mg/dL Normal 0.00-1.30 [facility] Comment on above: Performed By: #### L 100.0100, L500.4050 ####[facility] [address] [place], [address] BUN/CRE 11.3 RATIO Normal 10-20 [facility] Comment on above: Performed By: #### L 100.0100, L500.4050 ####[facility] [address] [place], [address] Calcium [Mass/Vol] 8.3 mg/dL Normal 7.6-11.0 [facility] Comment on above: Performed By: #### L 100.0100, L500.4050 ####[facility] [address] [place], [address] Chloride [Moles/Vol] 109 mmol/L High 98-108 [facility] Comment on above: Performed By: #### L 100.0100, L500.4050 ####[facility] [address] [place], [address] CO2 [Moles/Vol] 17.3 mmol/L Low 21.0-32.0 [facility] Comment on above: Performed By: #### L 100.0100, L500.4050 ####[facility] [address] [place], [address] Creatinine [Mass/Vol] 1.05 mg/dL Normal 0.70-1.20 [facility] Comment on above: Performed By: #### L 100.0100, L500.4050 ####[facility] [address] [place], [address] ECRCL 87.58 ml/min Normal 50-250 [facility] Comment on above: Performed By: #### L 100.0100, L500.4050 ####[facility] [address] [place], [address] GAP 9 Normal 5-15 [facility] Comment on above: Performed By: #### L 100.0100, L500.4050 ####[facility] [address] [place], [address] GFR/1.73 sq M.predicted among non-blacks MDRD (S/P/Bld) [Vol rate/Area] 82 mL/min/{1.73_m2} Normal >60 [facility] Comment on above: Result Comment: mL/m in/1.73m2 CKD-EPI Creatinine Equation (2020) Performed By: #### L 100.0100, L500.4050 ####[facility] [address] [place], [address] Globulin (S) [Mass/Vol] 2.6 g/dL Normal 2.2-4.2 [facility] Comment on above: Performed By: #### L 100.0100, L500.4050 ####[facility] [address] [place], [address] Glucose [Mass/Vol] 141 mg/dL High 70-99 [facility] Comment on above: Performed By: #### L 100.0100, L500.4050 ####[facility] [address] [place], [address] Potassium [Moles/Vol] 4.1 mmol/L Normal 3.3-5.1 [facility] Comment on above: Performed By: #### L 100.0100, L500.4050 ####[facility] [address] [place], [address] Sodium [Moles/Vol] 135 mmol/L Normal 133-145 [facility] Comment on above: Performed By: #### L 100.0100, L500.4050 ####[facility] [address] [place], [address] T PROT 5.1 g/dL Low 5.9-8.4 [facility] Comment on above: Performed By: #### L 100.0100, L500.4050 ####[facility] [address] [place], [address] Urea nitrogen [Mass/Vol] 12 mg/dL Normal 4-19 [facility] Comment on above: Performed By: #### L 100.0100, L500.4050 ####[facility] [address] [place], [address] Discharge Instructionon 09-1 Discharge Instruction Normal [facility] Abdomen Limitedon 04-19-2025 Abdomen Limited Normal [facility] Bedside Glucoseon 04-19-2025 FINGERSTICK GLU 167 mg/dL High 74-106 [facility] Comment on above: Result Comment: BRISA GEMENT OF PATIENT CARE PER NURSING PROTOCOL Performed By: #### L 501.080 ####[facility] [address] [place], [address] FINGERSTICK GLU 182 mg/dL High 74-106 [facility] Comment on above: Result Comment: BRISA GEMENT OF PATIENT CARE PER NURSING PROTOCOL Performed By: #### L 501.080 ####[facility] [address] [place], [address] FINGERSTICK GLU 224 mg/dL High 74-106 [facility] Comment on above: Result Comment: BIRSA GEMENT OF PATIENT CARE PER NURSING PROTOCOL Performed By: #### L 501.080 ####[facility] [address] [place], [address] FINGERSTICK GLU 187 mg/dL High 74-106 [facility] Comment on above: Result Comment: BRISA GEMENT OF PATIENT CARE PER NURSING PROTOCOL Performed By: #### L 501.080 ####[facility] [address] [place], [address] CBC W/Diff, Automatedon 04-04 PLT EST SLT DEC Normal [facility] Comment on above: Performed By: #### L 300.4700, L100.0100, L300.4310, L300.3900 ####[facility] [address] [place], [address] PLT EST SLT DEC Normal [facility] Comment on above: Performed By: #### L 500.4050, L100.0100 ####[facility] [address] [place], [address] Comprehensive Metabolic Prof [facility] 04-19-2025 Albumin [Mass/Vol] 2.5 g/dL Low 3.5-5.0 [facility] Comment on above: Performed By: #### L 500.4050, L100.0100 ####[facility] [address] [place], [address] Albumin/Globulin [Mass ratio] 1.0 {ratio} Normal 0.9-2.4 [facility] Comment on above: Performed By: #### L 500.4050, L100.0100 ####[facility] [address] [place], [address] ALK PHOS 107 U/L Normal 40-129 [facility] Comment on above: Performed By: #### L 500.4050, L100.0100 ####[facility] [address] [place], [address] ALT [Catalytic activity/Vol] 17 U/L Normal <=46 [facility] Comment on above: Performed By: #### L 500.4050, L100.0100 ####[facility] [address] [place], [address] AST [Catalytic activity/Vol] 30 U/L Normal <=37 [facility] Comment on above: Performed By: #### L 500.4050, L100.0100 ####[facility] [address] [place], [address] Bilirubin [Mass/Vol] 1.42 mg/dL High 0.00-1.30 [facility] Comment on above: Performed By: #### L 500.4050, L100.0100 ####[facility] [address] [place], [address] BUN/CRE 15.4 RATIO Normal 10-20 [facility] Comment on above: Performed By: #### L 500.4050, L100.0100 ####[facility] [address] [place], [address] Calcium [Mass/Vol] 8.5 mg/dL Normal 7.6-11.0 [facility] Comment on above: Performed By: #### L 500.4050, L100.0100 ####[facility] [address] [place], [address] Chloride [Moles/Vol] 110 mmol/L High 98-108 [facility] Comment on above: Performed By: #### L 500.4050, L100.0100 ####[facility] [address] [place], [address] CO2 [Moles/Vol] 15.7 mmol/L Low 21.0-32.0 [facility] Comment on above: Performed By: #### L 500.4050, L100.0100 ####[facility] [address] [place], [address] Creatinine [Mass/Vol] 0.92 mg/dL Normal 0.70-1.20 [facility] Comment on above: Performed By: #### L 500.4050, L100.0100 ####[facility] [address] [place], [address] ECRCL 99.60 ml/min Normal 50-250 [facility] Comment on above: Performed By: #### L 500.4050, L100.0100 ####[facility] [address] [place], [address] GAP 9 Normal 5-15 [facility] Comment on above: Performed By: #### L 500.4050, L100.0100 ####[facility] [address] [place], [address] GFR/1.73 sq M.predicted among non-blacks MDRD (S/P/Bld) [Vol rate/Area] 97 mL/min/{1.73_m2} Normal >60 [facility] Comment on above: Result Comment: mL/m in/1.73m2 CKD-EPI Creatinine Equation (2020) Performed By: #### L 500.4050, L100.0100 ####[facility] [address] [place], [address] Globulin (S) [Mass/Vol] 2.5 g/dL Normal 2.2-4.2 [facility] Comment on above: Performed By: #### L 500.4050, L100.0100 ####[facility] [address] [place], [address] Glucose [Mass/Vol] 167 mg/dL High 70-99 [facility] Comment on above: Performed By: #### L 500.4050, L100.0100 ####[facility] [address] [place], [address] Potassium [Moles/Vol] 4.4 mmol/L Normal 3.3-5.1 [facility] Comment on above: Performed By: #### L 500.4050, L100.0100 ####[facility] [address] [place], [address] Sodium [Moles/Vol] 135 mmol/L Normal 133-145 [facility] Comment on above: Performed By: #### L 500.4050, L100.0100 ####[facility] [address] [place], [address] T PROT 5.0 g/dL Low 5.9-8.4 [facility] Comment on above: Performed By: #### L 500.4050, L100.0100 ####[facility] [address] [place], [address] Urea nitrogen [Mass/Vol] 14 mg/dL Normal 4-19 [facility] Comment on above: Performed By: #### L 500.4050, L100.0100 ####[facility] [address] [place], [address] Fibrinogenon 04-19-2025 FIBRINOGEN 156 mg/dl Low 203-444 [facility] Comment on above: Performed By: #### L 300.4700, L100.0100, L300.4310, L300.3900 ####[facility] [address] [place], [address] Hemoglobin A1con 04-19-2025 HbA1c (Bld) [Mass fraction] 5.9 % High <=5.6 [facility] Comment on above: Result Comment: Norm al < 5.7 % Prediabetic 5.7 - 6.4 % Diabetic >or= 6.5 % Please note range changes. Performed By: #### L 501.2300, L501.9985, L300.3900, L501.5200 ####[facility] [address] [place], [address] Magnesiumon 04-19-2025 Magnesium [Mass/Vol] 1.5 mg/dL Normal 1.5-2.2 [facility] Comment on above: Performed By: #### L 501.2300, L501.9985, L300.3900, L501.5200 ####[facility] [address] [place], [address] Partial Thromboplast Timeon 04-19-2025 aPTT Coag (Bld) [Time] 44.5 s High 24.1-36.2 [facility] Comment on above: Performed By: #### L 300.4700, L100.0100, L300.4310, L300.3900 ####[facility] [address] [place], [address] Phosphoruson 04-19-2025 Phosphate [Mass/Vol] 3.5 mg/dL Normal 2.7-4.5 [facility] Comment on above: Performed By: #### L 501.2300, L501.9985, L300.3900, L501.5200 ####[facility] [address] [place], [address] Prothrombin Time w/INRon INR Coag (PPP) [Relative time] 2.2 {INR} Normal [facility] Comment on above: Performed By: #### L 300.4700, L100.0100, L300.4310, L300.3900 ####[facility] [address] [place], [address] PT Coag (PPP) [Time] 24.4 s High 11.7-14.9 [facility] Comment on above: Performed By: #### L 300.4700, L100.0100, L300.4310, L300.3900 ####[facility] [address] [place], [address] INR Coag (PPP) [Relative time] 2.3 {INR} Normal [facility] Comment on above: Performed By: #### L 501.2300, L501.9985, L300.3900, L501.5200 ####[facility] [address] [place], [address] PT Coag (PPP) [Time] 26.2 s High 11.7-14.9 [facility] Comment on above: Performed By: #### L 501.2300, L501.9985, L300.3900, L501.5200 ####[facility] [address] [place], [address] 12 Lead EKGon 04-18-2025 12 Lead EKG Normal [facility] Abdomen/Pelvis without Conto n 04-18-2025 Abdomen/Pelvis without Cont Normal [facility] Ammoniaon 04-18-2025 Ammonia (P) [Moles/Vol] 97.2 umol/L High 16-60 [facility] Comment on above: Performed By: #### L 300.3900, M200.1000, L503.5510, L500.3400, L300.4310, L100.0100, L503.6005 ####[facility] [address] [place], [address] Basic Metabolic Profile (BMP )on 04-18-2025 BUN/CRE 12.3 RATIO Normal 10-20 [facility] Comment on above: Performed By: #### L 500.2500, L501.4021 ####[facility] [address] [place], [address] Calcium [Mass/Vol] 8.4 mg/dL Normal 7.6-11.0 [facility] Comment on above: Performed By: #### L 500.2500, L501.4021 ####[facility] [address] [place], [address] Chloride [Moles/Vol] 110 mmol/L High 98-108 [facility] Comment on above: Performed By: #### L 500.2500, L501.4021 ####[facility] [address] [place], [address] CO2 [Moles/Vol] 17.2 mmol/L Low 21.0-32.0 [facility] Comment on above: Performed By: #### L 500.2500, L501.4021 ####[facility] [address] [place], [address] Creatinine [Mass/Vol] 0.97 mg/dL Normal 0.70-1.20 [facility] Comment on above: Performed By: #### L 500.2500, L501.4021 ####[facility] [address] [place], [address] ECRCL 93.48 ml/min Normal 50-250 [facility] Comment on above: Performed By: #### L 500.2500, L501.4021 ####[facility] [address] [place], [address] GAP 8 Normal 5-15 [facility] Comment on above: Performed By: #### L 500.2500, L501.4021 ####[facility] [address] [place], [address] GFR/1.73 sq M.predicted among non-blacks MDRD (S/P/Bld) [Vol rate/Area] 90 mL/min/{1.73_m2} Normal >60 [facility] Comment on above: Result Comment: mL/m in/1.73m2 CKD-EPI Creatinine Equation (2020) Performed By: #### L 500.2500, L501.4021 ####[facility] [address] [place], [address] Glucose [Mass/Vol] 83 mg/dL Normal 70-99 [facility] Comment on above: Performed By: #### L 500.2500, L501.4021 ####[facility] [address] [place], [address] Potassium [Moles/Vol] 4.5 mmol/L Normal 3.3-5.1 [facility] Comment on above: Performed By: #### L 500.2500, L501.4021 ####[facility] [address] [place], [address] Sodium [Moles/Vol] 135 mmol/L Normal 133-145 [facility] Comment on above: Performed By: #### L 500.2500, L501.4021 ####[facility] [address] [place], [address] Urea nitrogen [Mass/Vol] 12 mg/dL Normal 4-19 [facility] Comment on above: Performed By: #### L 500.2500, L501.4021 ####[facility] [address] [place], [address] Bedside Glucoseon 04-18-2025 FINGERSTICK GLU 206 mg/dL High 74-106 [facility] Comment on above: Result Comment: BRISA GEMENT OF PATIENT CARE PER NURSING PROTOCOL Performed By: #### L 501.080 ####[facility] [address] [place], [address] FINGERSTICK GLU 134 mg/dL High 74-106 [facility] Comment on above: Result Comment: BRISA GEMENT OF PATIENT CARE PER NURSING PROTOCOL Performed By: #### L 501.080 ####[facility] [address] [place], [address] FINGERSTICK GLU 108 mg/dL High 74-106 [facility] Comment on above: Result Comment: BRISA GEMENT OF PATIENT CARE PER NURSING PROTOCOL Performed By: #### L 501.080 ####[facility] [address] [place], [address] FINGERSTICK GLU 64 mg/dL Low 74-106 [facility] Comment on above: Result Comment: BRISA MOROCHO OF PATIENT CARE PER NURSING PROTOCOL Performed By: #### L 501.080 ####[facility] [address] [place], [address] Brain/Head without Contrasto n 04-18-2025 Brain/Head without Contrast Normal [facility] CBC W/Diff, Automatedon 04-04 Absolute Lymph 1.05 X10 3/uL Normal 0.83-4.51 [facility] Comment on above: Performed By: #### L 300.3900, M200.1000, L503.5510, L500.3400, L300.4310, L100.0100, L503.6005 ####[facility] [address] [place], [address] Absolute Neut 6.7 X10 3/uL Normal 2.0-7.7 [facility] Comment on above: Performed By: #### L 300.3900, M200.1000, L503.5510, L500.3400, L300.4310, L100.0100, L503.6005 ####[facility] [address] [place], [address] Basophils/100 WBC (Bld) 0.5 % Normal 0-1 [facility] Comment on above: Performed By: #### L 300.3900, M200.1000, L503.5510, L500.3400, L300.4310, L100.0100, L503.6005 ####[facility] [address] [place], [address] Eosinophils/100 WBC (Bld) 1.4 % Normal 0-5 [facility] Comment on above: Performed By: #### L 300.3900, M200.1000, L503.5510, L500.3400, L300.4310, L100.0100, L503.6005 ####[facility] [address] [place], [address] Erythrocyte distribution width (RBC) [Ratio] 16.3 % High 11.6-14.6 [facility] Comment on above: Performed By: #### L 300.3900, M200.1000, L503.5510, L500.3400, L300.4310, L100.0100, L503.6005 ####[facility] [address] [place], [address] Hematocrit (Bld) [Volume fraction] 30.5 % Low 40-54 [facility] Comment on above: Performed By: #### L 300.3900, M200.1000, L503.5510, L500.3400, L300.4310, L100.0100, L503.6005 ####[facility] [address] [place], [address] Hemoglobin (Bld) [Mass/Vol] 10.2 g/dL Low 13.0-16.5 [facility] Comment on above: Performed By: #### L 300.3900, M200.1000, L503.5510, L500.3400, L300.4310, L100.0100, L503.6005 ####[facility] [address] [place], [address] IG% 0.600 Normal 0.0-0.9 [facility] Comment on above: Result Comment: IG% - Immature Granulocytes (promyelocytes, myelocytes andmetamyelocytes) > 1% indicates that a LEFT SHIFT is Present. Performed By: #### L 300.3900, M200.1000, L503.5510, L500.3400, L300.4310, L100.0100, L503.6005 ####[facility] [address] [place], [address] Lymphocytes/100 WBC (Bld) 12.1 % Low 19-41 [facility] Comment on above: Performed By: #### L 300.3900, M200.1000, L503.5510, L500.3400, L300.4310, L100.0100, L503.6005 ####[facility] [address] [place], [address] MCH (RBC) [Entitic mass] 30.1 pg Normal 27.0-32.0 [facility] Comment on above: Performed By: #### L 300.3900, M200.1000, L503.5510, L500.3400, L300.4310, L100.0100, L503.6005 ####[facility] [address] [place], [address] MCHC (RBC) [Mass/Vol] 33.4 g/dL Normal 32-36 [facility] Comment on above: Performed By: #### L 300.3900, M200.1000, L503.5510, L500.3400, L300.4310, L100.0100, L503.6005 ####[facility] [address] [place], [address] MCV (RBC) [Entitic vol] 90.0 fL Normal 80-94 [facility] Comment on above: Performed By: #### L 300.3900, M200.1000, L503.5510, L500.3400, L300.4310, L100.0100, L503.6005 ####[facility] [address] [place], [address] Monocytes/100 WBC (Bld) 8.3 % Normal 0-10 [facility] Comment on above: Performed By: #### L 300.3900, M200.1000, L503.5510, L500.3400, L300.4310, L100.0100, L503.6005 ####[facility] [address] [place], [address] Neutrophils/100 WBC (Bld) 77.1 % High 47-70 [facility] Comment on above: Performed By: #### L 300.3900, M200.1000, L503.5510, L500.3400, L300.4310, L100.0100, L503.6005 ####[facility] [address] [place], [address] Nucleated RBC (Bld) [#/Vol] 0 10*3/uL Normal 0-5 [facility] Comment on above: Performed By: #### L 300.3900, M200.1000, L503.5510, L500.3400, L300.4310, L100.0100, L503.6005 ####[facility] [address] [place], [address] Platelet mean volume (Bld) [Entitic vol] 10.2 fL Normal 6.2-12.0 [facility] Comment on above: Performed By: #### L 300.3900, M200.1000, L503.5510, L500.3400, L300.4310, L100.0100, L503.6005 ####[facility] [address] [place], [address] Platelets (Bld) [#/Vol] 174 10*3/uL Normal 150-450 [facility] Comment on above: Performed By: #### L 300.3900, M200.1000, L503.5510, L500.3400, L300.4310, L100.0100, L503.6005 ####[facility] [address] [place], [address] RBC (Bld) [#/Vol] 3.39 10*6/uL Low 4.6-6.2 [facility] Comment on above: Performed By: #### L 300.3900, M200.1000, L503.5510, L500.3400, L300.4310, L100.0100, L503.6005 ####[facility] [address] [place], [address] RDW SD 53.2 fl High 35.1-43.9 [facility] Comment on above: Performed By: #### L 300.3900, M200.1000, L503.5510, L500.3400, L300.4310, L100.0100, L503.6005 ####[facility] [address] [place], [address] WBC (Bld) [#/Vol] 8.7 10*3/uL Normal 4.4-11.0 [facility] Comment on above: Performed By: #### L 300.3900, M200.1000, L503.5510, L500.3400, L300.4310, L100.0100, L503.6005 ####[facility] [address] [place], [address] Chest 1 View (Portable)on Chest 1 View (Portable) Normal [facility] Emergency Department Summary on 04-18-2025 Emergency Department Summary Normal [facility] H AND P Exam - Hospitaliston 04-18-2025 H&P Exam - Hospitalist Normal [facility] L501.4021on 04-18-2025 Trop T High Sen 11 ng/L Normal <=22 [facility] Comment on above: Performed By: #### L 500.2500, L501.4021 ####[facility] [address] [place], [address] Lactic Acidon 04-18-2025 Lactate [Moles/Vol] 1.9 mmol/L Normal 0.0-2.0 [facility] Comment on above: Order Comment: Y Performed By: #### L 300.3900, M200.1000, L503.5510, L500.3400, L300.4310, L100.0100, L503.6005 ####[facility] [address] [place], [address] Liver Profileon 04-18-2025 Albumin [Mass/Vol] 2.6 g/dL Low 3.5-5.0 [facility] Comment on above: Performed By: #### L 300.3900, M200.1000, L503.5510, L500.3400, L300.4310, L100.0100, L503.6005 ####[facility] [address] [place], [address] ALK PHOS 154 U/L High 40-129 [facility] Comment on above: Performed By: #### L 300.3900, M200.1000, L503.5510, L500.3400, L300.4310, L100.0100, L503.6005 ####[facility] [address] [place], [address] ALT [Catalytic activity/Vol] 27 U/L Normal <=46 [facility] Comment on above: Performed By: #### L 300.3900, M200.1000, L503.5510, L500.3400, L300.4310, L100.0100, L503.6005 ####[facility] [address] [place], [address] AST [Catalytic activity/Vol] 46 U/L High <=37 [facility] Comment on above: Performed By: #### L 300.3900, M200.1000, L503.5510, L500.3400, L300.4310, L100.0100, L503.6005 ####[facility] [address] [place], [address] Bilirubin [Mass/Vol] 1.85 mg/dL High 0.00-1.30 [facility] Comment on above: Performed By: #### L 300.3900, M200.1000, L503.5510, L500.3400, L300.4310, L100.0100, L503.6005 ####[facility] [address] [place], [address] Bilirubin.direct [Mass/Vol] 1.15 mg/dL High 0.00-0.30 [facility] Comment on above: Performed By: #### L 300.3900, M200.1000, L503.5510, L500.3400, L300.4310, L100.0100, L503.6005 ####[facility] [address] [place], [address] Globulin (S) [Mass/Vol] 3.8 g/dL Normal 2.2-4.2 [facility] Comment on above: Performed By: #### L 300.3900, M200.1000, L503.5510, L500.3400, L300.4310, L100.0100, L503.6005 ####[facility] [address] [place], [address] T PROT 6.3 g/dL Normal 5.9-8.4 [facility] Comment on above: Performed By: #### L 300.3900, M200.1000, L503.5510, L500.3400, L300.4310, L100.0100, L503.6005 ####[facility] [address] [place], [address] Partial Thromboplast Timeon 04-18-2025 aPTT Coag (Bld) [Time] 41.6 s High 24.1-36.2 [facility] Comment on above: Performed By: #### L 300.3900, M200.1000, L503.5510, L500.3400, L300.4310, L100.0100, L503.6005 ####[facility] [address] [place], [address] Prothrombin Time w/INRon INR Coag (PPP) [Relative time] 1.8 {INR} Normal [facility] Comment on above: Performed By: #### L 300.3900, M200.1000, L503.5510, L500.3400, L300.4310, L100.0100, L503.6005 ####Martin [facility] [address] [place], [address] PT Coag (PPP) [Time] 20.9 s High 11.7-14.9 [facility] Comment on above: Performed By: #### L 300.3900, M200.1000, L503.5510, L500.3400, L300.4310, L100.0100, L503.6005 ####[facility] [address] [place], [address] Troponin T HS 2 HRon 025 Trop T High Sen 12 ng/L Normal <=22 [facility] Comment on above: Performed By: #### L 499.0042 ####[facility] [address] [place], [address] Troponin T HS 4 HRon 025 Trop T High Sen 13 ng/L Normal <=22 [facility] Comment on above: Performed By: #### L 499.0043 ####[facility] [address] [place], [address] Urinalysis, Completeon 04-18 BACTERIA 1+ /hpf Normal None Seen [facility] Comment on above: Order Comment: COLOR OF URINE MAY AFFECT DIPSTICK RESULTS.CLEAN CATCH Performed By: #### M 100.2200, L400.0001 ####[facility] [address] [place], [address] RBC 50-100 SEEN Normal 0-5 [facility] Comment on above: Order Comment: COLOR OF URINE MAY AFFECT DIPSTICK RESULTS.CLEAN CATCH Performed By: #### M 100.2200, L400.0001 ####[facility] [address] [place], [address] WBC 25-50 SEEN Normal 0-5 [facility] Comment on above: Order Comment: COLOR OF URINE MAY AFFECT DIPSTICK RESULTS.CLEAN CATCH Performed By: #### M 100.2200, L400.0001 ####[facility] [address] [place], [address] EPI,SQUAMOUS 0-5 SEEN Normal 0-5 [facility] Comment on above: Order Comment: COLOR OF URINE MAY AFFECT DIPSTICK RESULTS.CLEAN CATCH Performed By: #### M 100.2200, L400.0001 ####[facility] [address] [place], [address] Mucus Ql (Urine sed) 0 SEEN Normal [facility] Comment on above: Order Comment: COLOR OF URINE MAY AFFECT DIPSTICK RESULTS.CLEAN CATCH Performed By: #### M 100.2200, L400.0001 ####[facility] [address] [place], [address] Absolute lymphocyte countOrd ered By: Anurag Irene on 04-10-2025 Lymphocytes Auto (Unsp spec) [#/Vol] 1.25 10*3/uL 0.83-4.51 [facility] Anion gap in Serum or Plasma Ordered By: Anurag Irene on 04-10-2025 Anion gap [Moles/Vol] 9 mmol/L 5-15 [facility] Automated lymphocyte count a s percentage of total leukocytesOrdered By: Anurag Irene on 04-10-2025 Lymphocytes/100 WBC Auto (Unsp spec) 19.5 % 19-41 [facility] BUN/creatinine ratioOrdered By: Anurag Irene on 04-10-2025 Urea nitrogen/Creatinine [Mass ratio] 7.4 mg/mg Low 10-20 [facility] Basophil percentageOrdered B y: Anurag Irene on 04-10-2025 Basophils/100 WBC (Bld) 0.3 % 0-1 [facility] Bedside Glucoseon 04-10-2025 FINGERSTICK GLU 220 mg/dL High 74-106 [facility] Comment on above: Result Comment: BRISA GEMENT OF PATIENT CARE PER NURSING PROTOCOL Performed By: #### L 501.080 ####[facility] [address] [place], [address] FINGERSTICK GLU 189 mg/dL High 74-106 [facility] Comment on above: Result Comment: BRISA GEMENT OF PATIENT CARE PER NURSING PROTOCOL Performed By: #### L 501.080 ####[facility] [address] [place], [address] Bilirubin, totalOrdered By: Anurag Irene on 04-10-2025 Bilirubin [Mass/Vol] 1.38 mg/dL High 0.00-1.30 [facility] CBC W/Diff, Automatedon Absolute Lymph 1.25 X10 3/uL Normal 0.83-4.51 [facility] Comment on above: Performed By: #### L 500.4050, L100.0100 ####[facility] [address] [place], [address] Absolute Neut 4.0 X10 3/uL Normal 2.0-7.7 [facility] Comment on above: Performed By: #### L 500.4050, L100.0100 ####[facility] [address] [place], [address] Basophils/100 WBC (Bld) 0.3 % Normal 0-1 [facility] Comment on above: Performed By: #### L 500.4050, L100.0100 ####[facility] [address] [place], [address] Eosinophils/100 WBC (Bld) 6.2 % High 0-5 [facility] Comment on above: Performed By: #### L 500.4050, L100.0100 ####[facility] [address] [place], [address] Erythrocyte distribution width (RBC) [Ratio] 15.5 % High 11.6-14.6 [facility] Comment on above: Performed By: #### L 500.4050, L100.0100 ####[facility] [address] [place], [address] Hematocrit (Bld) [Volume fraction] 22.2 % Low 40-54 [facility] Comment on above: Performed By: #### L 500.4050, L100.0100 ####[facility] [address] [place], [address] Hemoglobin (Bld) [Mass/Vol] 7.6 g/dL Low 13.0-16.5 [facility] Comment on above: Performed By: #### L 500.4050, L100.0100 ####[facility] [address] [place], [address] IG% 0.600 Normal 0.0-0.9 [facility] Comment on above: Result Comment: IG% - Immature Granulocytes (promyelocytes, myelocytes andmetamyelocytes) > 1% indicates that a LEFT SHIFT is Present. Performed By: #### L 500.4050, L100.0100 ####[facility] [address] [place], [address] Lymphocytes/100 WBC (Bld) 19.5 % Normal 19-41 [facility] Comment on above: Performed By: #### L 500.4050, L100.0100 ####[facility] [address] [place], [address] MCH (RBC) [Entitic mass] 30.3 pg Normal 27.0-32.0 [facility] Comment on above: Performed By: #### L 500.4050, L100.0100 ####[facility] [address] [place], [address] MCHC (RBC) [Mass/Vol] 34.2 g/dL Normal 32-36 [facility] Comment on above: Performed By: #### L 500.4050, L100.0100 ####[facility] [address] [place], [address] MCV (RBC) [Entitic vol] 88.4 fL Normal 80-94 [facility] Comment on above: Performed By: #### L 500.4050, L100.0100 ####[facility] [address] [place], [address] Monocytes/100 WBC (Bld) 10.6 % High 0-10 [facility] Comment on above: Performed By: #### L 500.4050, L100.0100 ####[facility] [address] [place], [address] Neutrophils/100 WBC (Bld) 62.8 % Normal 47-70 [facility] Comment on above: Performed By: #### L 500.4050, L100.0100 ####[facility] [address] [place], [address] Nucleated RBC (Bld) [#/Vol] 0 10*3/uL Normal 0-5 [facility] Comment on above: Performed By: #### L 500.4050, L100.0100 ####[facility] [address] [place], [address] Platelet mean volume (Bld) [Entitic vol] 11.1 fL Normal 6.2-12.0 [facility] Comment on above: Performed By: #### L 500.4050, L100.0100 ####[facility] [address] [place], [address] Platelets (Bld) [#/Vol] 114 10*3/uL Low 150-450 [facility] Comment on above: Performed By: #### L 500.4050, L100.0100 ####[facility] [address] [place], [address] RBC (Bld) [#/Vol] 2.51 10*6/uL Low 4.6-6.2 [facility] Comment on above: Performed By: #### L 500.4050, L100.0100 ####[facility] [address] [place], [address] RDW SD 49.1 fl High 35.1-43.9 [facility] Comment on above: Performed By: #### L 500.4050, L100.0100 ####[facility] [address] [place], [address] WBC (Bld) [#/Vol] 6.4 10*3/uL Normal 4.4-11.0 [facility] Comment on above: Performed By: #### L 500.4050, L100.0100 ####[facility] [address] [place], [address] Carbon dioxide, total [Moles /volume] in Central venous bloodOrdered By: Anurag Irene on 04-10-2025 CO2 [Moles/Vol] 17.8 mmol/L Low 21.0-32.0 [facility] Chloride assayOrdered By: Francois Irene on 04-10-2025 Chloride [Moles/Vol] 107 mmol/L 98-108 [facility] Comprehensive Metabolic Prof ilon 04-10-2025 Albumin [Mass/Vol] 2.0 g/dL Low 3.5-5.0 [facility] Comment on above: Performed By: #### L 500.4050, L100.0100 ####[facility] [address] [place], [address] Albumin/Globulin [Mass ratio] 0.7 {ratio} Low 0.9-2.4 [facility] Comment on above: Performed By: #### L 500.4050, L100.0100 ####[facility] [address] [place], [address] ALK PHOS 140 U/L High 40-129 [facility] Comment on above: Performed By: #### L 500.4050, L100.0100 ####[facility] [address] [place], [address] ALT [Catalytic activity/Vol] 22 U/L Normal <=46 [facility] Comment on above: Performed By: #### L 500.4050, L100.0100 ####[facility] [address] [place], [address] AST [Catalytic activity/Vol] 37 U/L Normal <=37 [facility] Comment on above: Performed By: #### L 500.4050, L100.0100 ####[facility] [address] [place], [address] Bilirubin [Mass/Vol] 1.38 mg/dL High 0.00-1.30 [facility] Comment on above: Performed By: #### L 500.4050, L100.0100 ####[facility] [address] [place], [address] BUN/CRE 7.4 RATIO Low 10-20 [facility] Comment on above: Performed By: #### L 500.4050, L100.0100 ####[facility] [address] [place], [address] Calcium [Mass/Vol] 8.1 mg/dL Normal 7.6-11.0 [facility] Comment on above: Performed By: #### L 500.4050, L100.0100 ####[facility] [address] [place], [address] Chloride [Moles/Vol] 107 mmol/L Normal 98-108 [facility] Comment on above: Performed By: #### L 500.4050, L100.0100 ####[facility] [address] [place], [address] CO2 [Moles/Vol] 17.8 mmol/L Low 21.0-32.0 [facility] Comment on above: Performed By: #### L 500.4050, L100.0100 ####[facility] [address] [place], [address] Creatinine [Mass/Vol] 1.16 mg/dL Normal 0.70-1.20 [facility] Comment on above: Performed By: #### L 500.4050, L100.0100 ####[facility] [address] [place], [address] ECRCL 80.17 ml/min Normal 50-250 [facility] Comment on above: Performed By: #### L 500.4050, L100.0100 ####[facility] [address] [place], [address] GAP 9 Normal 5-15 [facility] Comment on above: Performed By: #### L 500.4050, L100.0100 ####[facility] [address] [place], [address] GFR/1.73 sq M.predicted among non-blacks MDRD (S/P/Bld) [Vol rate/Area] 73 mL/min/{1.73_m2} Normal >60 [facility] Comment on above: Result Comment: mL/m in/1.73m2 CKD-EPI Creatinine Equation (2020) Performed By: #### L 500.4050, L100.0100 ####[facility] [address] [place], [address] Globulin (S) [Mass/Vol] 3.0 g/dL Normal 2.2-4.2 [facility] Comment on above: Performed By: #### L 500.4050, L100.0100 ####[facility] [address] [place], [address] Glucose [Mass/Vol] 199 mg/dL High 70-99 [facility] Comment on above: Performed By: #### L 500.4050, L100.0100 ####[facility] [address] [place], [address] Potassium [Moles/Vol] 3.3 mmol/L Normal 3.3-5.1 [facility] Comment on above: Performed By: #### L 500.4050, L100.0100 ####[facility] [address] [place], [address] Sodium [Moles/Vol] 134 mmol/L Normal 133-145 [facility] Comment on above: Performed By: #### L 500.4050, L100.0100 ####[facility] [address] [place], [address] T PROT 4.9 g/dL Low 5.9-8.4 [facility] Comment on above: Performed By: #### L 500.4050, L100.0100 ####[facility] [address] [place], [address] Urea nitrogen [Mass/Vol] 9 mg/dL Normal 4-19 [facility] Comment on above: Performed By: #### L 500.4050, L100.0100 ####[facility] [address] [place], [address] Discharge Instructionon 09-0 Discharge Instruction Normal [facility] Eosinophil percentageOrdered By: Anurag Irene on 04-10-2025 Eosinophils/100 WBC (Bld) 6.2 % High 0-5 [facility] Erythrocyte distribution wid th ratioOrdered By: Anurag Irene on 04-10-2025 Erythrocyte distribution width (RBC) [Ratio] 15.5 % High 11.6-14.6 [facility] Erythrocyte distribution wid th standard deviationOrdered By: Anurag Irene on 04-10-2025 Erythrocyte distribution width (RBC) [Ratio] 49.1 fl High 35.1-43.9 [facility] Glomerular filtration rate ( GFR) estimation/1.73 sq m using serum, plasma, or whole bOrdered By: Anurag Irene on 04-10-2025 GFR/1.73 sq M.predicted among non-blacks MDRD (S/P/Bld) [Vol rate/Area] 73 mL/min/{1.73_m2} >60 [facility] Glucose measurement at [facility] deOrdered By: Anurag Irene on 04-10-2025 Glucose [Mass/Vol] 220 mg/dL High 74-106 [facility] Hematocrit Auto (Bld) [Volum e fraction]Ordered By: Anurag Irene on 04-10-2025 Hematocrit (Bld) [Volume fraction] 22.2 % Low 40-54 [facility] Hemoglobin measurementOrdere d By: Anurag Irene on 04-10-2025 Hemoglobin (Bld) [Mass/Vol] 7.6 g/dL Low 13.0-16.5 [facility] Immature granulocytes/100 WB C Auto (Bld)Ordered By: Anurag Irene on 04-10-2025 Immature granulocytes/100 WBC (Bld) 0.600 % 0.0-0.9 [facility] MCV (mean corpuscular volume ) determinationOrdered By: Anurag Irene on 04-10-2025 MCV (RBC) [Entitic vol] 88.4 fL 80-94 [facility] Mean corpuscular hemoglobin (MCH) determinationOrdered By: Anurag Irene on 04-10-2025 MCH (RBC) [Entitic mass] 30.3 pg 27.0-32.0 [facility] Monocyte percentageOrdered B y: Anurag Irene on 04-10-2025 Monocytes/100 WBC (Bld) 10.6 % High 0-10 [facility] Neutrophil percentageOrdered By: Anurag Irene on 04-10-2025 Neutrophils/100 WBC (Bld) 62.8 % 47-70 [facility] No Panel InformationOrdered By: Anurag Irene on 04-10-2025 37 U/L <38 [facility] Platelet countOrdered By: Francois Irene on 04-10-2025 Platelets (Bld) [#/Vol] 114 10*3/uL Low 150-450 [facility] Potassium measurement (mass/ volume)Ordered By: Anurag Irene on 04-10-2025 Potassium (Unsp spec) [Mass/Vol] 3.3 mmol/L 3.3-5.1 [facility] RBC Auto (Bld) [#/Vol]Ordere d By: Anurag Irene on 04-10-2025 RBC (Bld) [#/Vol] 2.51 10*6/uL Low 4.6-6.2 [facility] Serum creatinine measurement (mass/volume)Ordered By: Anurag Irene on 04-10-2025 Creatinine [Mass/Vol] 1.16 mg/dL 0.70-1.20 [facility] Serum globulin measurementOr dered By: Anurag Irene on 04-10-2025 Globulin (S) [Mass/Vol] 3.0 g/dL 2.2-4.2 [facility] Serum glucose measurement (m ass/volume)Ordered By: Anurag Irene on 04-10-2025 Glucose [Mass/Vol] 199 mg/dL High 70-99 [facility] Serum or plasma alanine thomas otransferase (ALT) measurementOrdered By: Anurag Irene on 04-10-2025 ALT [Catalytic activity/Vol] 22 U/L <47 [facility] Serum or plasma albumin roosevelt urement (mass/volume)Ordered By: Anurag Irene on 04-10-2025 Albumin [Mass/Vol] 2.0 g/dL Low 3.5-5.0 [facility] Serum or plasma albumin/glob ulin mass ratioOrdered By: Anurag Irene on 04-10-2025 Albumin/Globulin [Mass ratio] 0.7 {ratio} Low 0.9-2.4 [facility] Serum or plasma alkaline kendrick sphatase measurementOrdered By: Anurag Irene on 04-10-2025 ALP [Catalytic activity/Vol] 140 U/L High 40-129 [facility] Serum or plasma calcium roosevelt urement (mass/volume)Ordered By: Anurag Irene on 04-10-2025 Calcium [Mass/Vol] 8.1 mg/dL 7.6-11.0 [facility] Serum or plasma urea nitroge n measurement (mass/volume)Ordered By: Anurag Irene on 04-10-2025 Urea nitrogen [Mass/Vol] 9 mg/dL 4-19 [facility] Sodium levelOrdered By: Marni Irene on 04-10-2025 Sodium [Moles/Vol] 134 mmol/L 133-145 [facility] Total proteinOrdered By: [place] Irene on 04-10-2025 Protein [Mass/Vol] 4.9 g/dL Low 5.9-8.4 [facility] White blood cell (WBC) count Ordered By: Anurag Irene on 04-10-2025 WBC (Bld) [#/Vol] 6.4 10*3/uL 4.4-11.0 [facility] Bedside Glucoseon 04-09-2025 FINGERSTICK GLU 184 mg/dL High 74-106 [facility] Comment on above: Result Comment: BRISA GEMENT OF PATIENT CARE PER NURSING PROTOCOL Performed By: #### L 501.080 ####[facility] [address] [facility] [address] FINGERSTICK GLU 234 mg/dL High [address] [facility] Comment on above: Result Comment: BRISA GEMENT OF PATIENT CARE PER NURSING PROTOCOL Performed By: #### L 501.080 ####[facility] [address] [facility] [address] FINGERSTICK GLU 201 mg/dL High 74-106 [facility] Comment on above: Result Comment: BRISA GEMENT OF PATIENT CARE PER NURSING PROTOCOL Performed By: #### L 501.080 ####[facility] [address] [facility] [address] FINGERSTICK GLU 163 mg/dL High 74-106 [facility] Comment on above: Result Comment: BRISA GEMENT OF PATIENT CARE PER NURSING PROTOCOL Performed By: #### L 501.080 ####[facility] [address] [place], [address] Bilirubin Test strip Ql (U)O rdered By: Anurag Irene on 04-09-2025 Bilirubin Ql (U) Negative Negative [facility] HH, Hemoglobin AND Hematocri ton 04-09-2025 HCT Normal 40-54 [facility] Comment on above: Result Comment: Canc elled via OM: Order edited - Discontinuing original order Performed By: #### L 100.0600 ####[facility] [address] [place], [address] HGB Normal 13.0-16.5 [facility] Comment on above: Result Comment: Canc elled via OM: Order edited - Discontinuing original order Performed By: #### L 100.0600 ####[facility] [address] [place], [address] Hematocrit (Bld) [Volume fraction] 24.8 % Low 40-54 [facility] Comment on above: Performed By: #### L 100.0600 ####[facility] [address] [place], [address] Hemoglobin (Bld) [Mass/Vol] 8.4 g/dL Low 13.0-16.5 [facility] Comment on above: Performed By: #### L 100.0600 ####[facility] [address] [place], [address] Ketones Test strip Ql (U)Ord ered By: Anurag Irene on 04-09-2025 Ketones Ql (U) Negative Negative [facility] Mucus LM Ql (Urine sed)Order ed By: Anurag Irene on 04-09-2025 Mucus Ql (Urine sed) 0 SEEN /hpf [facility] Nitrite Test strip Ql (U)Ord ered By: Anurag Irene on 04-09-2025 Nitrite Ql (U) Negative Negative [facility] Protein Test strip Ql (U)Ord ered By: Anurag Irene on 04-09-2025 Protein Ql (U) 30 mg/dl High Negative [facility] Squamous epithelial cells de tection in urine sediment by light microscopyOrdered By: Anurag Irene on 04-09-2025 Epithelial cells.squamous LM Ql (Urine sed) 0-5 SEEN /hpf 0-5 [facility] Urinalysis, Completeon 04-09 BACTERIA 2+ /hpf Normal None Seen [facility] Comment on above: Order Comment: CLEAN CATCH Performed By: #### L 400.0001 ####[facility] [address] [place], [address] EPI,SQUAMOUS 0-5 SEEN Normal 0-5 [facility] Comment on above: Order Comment: CLEAN CATCH Performed By: #### L 400.0001 ####[facility] [address] [place], [address] RBC 10-25 SEEN Normal 0-5 [facility] Comment on above: Order Comment: CLEAN CATCH Performed By: #### L 400.0001 ####[facility] [address] [place], [address] WBC 25-50 SEEN Normal 0-5 [facility] Comment on above: Order Comment: CLEAN CATCH Performed By: #### L 400.0001 ####[facility] [address] [place], [address] Mucus Ql (Urine sed) 0 SEEN Normal [facility] Comment on above: Order Comment: CLEAN CATCH Performed By: #### L 400.0001 ####[facility] [address] [place], [address] Urine Cultureon 04-09-2025 URC Culture exhibits no growth. Normal [facility] Comment on above: Performed By: #### M 100.2200 ####[facility] [address] [place], [address] Urine clarityOrdered By: [place] Irene on 04-09-2025 Clarity (U) Cloudy Clear [facility] Urine color determinationOrd ered By: Anurag Irene on 04-09-2025 Color (U) Straw Yellow [facility] Urine glucose detectionOrder ed By: Anurag Irene on 04-09-2025 Glucose Ql (U) Normal mg/dl Normal [facility] Urine leukocyte esterase det ection by dipstickOrdered By: Anurag Irene on 04-09-2025 Leukocyte esterase Test strip Ql (U) 100 /ul High Negative [facility] Urine pHOrdered By: Anurag Irene on 04-09-2025 pH (U) 7.0 [pH] 5.0 - 8.0 [facility] Urine sediment bacteria coun t by microscopy (number/high power field)Ordered By: Anurag Irene on 04-09-2025 Bacteria LM.HPF (Urine sed) [#/Area] 2 /[HPF] None Seen [facility] Urine specific gravity measu rementOrdered By: Anurag Irene on 04-09-2025 Specific gravity (U) [Rel density] 1.010 1.002-1.030 [facility] Urine urobilinogen measureme ntOrdered By: Anurag Irene on 04-09-2025 Urobilinogen Ql (U) Normal mg/dl Normal [facility] White blood cell countOrdere d By: Anurag Irene on 04-09-2025 White blood cell count 25-50 SEEN /hpf 0-5 [facility] Ammoniaon 04-08-2025 Ammonia (P) [Moles/Vol] 105.0 umol/L High 16-60 [facility] Comment on above: Performed By: #### L 100.0100, L503.5510, L500.4050 ####[facility] [address] [place], [place], [address] Bedside Glucoseon 04-08-2025 FINGERSTICK GLU 186 mg/dL High 74-106 [facility] Comment on above: Result Comment: BRISA MOROCHO OF PATIENT CARE PER NURSING PROTOCOL Performed By: #### L 501.080 ####[facility] [address] [place], [place], [address] FINGERSTICK GLU 224 mg/dL High 74-106 [facility] Comment on above: Result Comment: BRISA GEMENT OF PATIENT CARE PER NURSING PROTOCOL Performed By: #### L 501.080 ####[facility] [address] [place], [address] FINGERSTICK GLU 244 mg/dL High 74-106 [facility] Comment on above: Result Comment: BRISA GEMENT OF PATIENT CARE PER NURSING PROTOCOL Performed By: #### L 501.080 ####[facility] [address] [place], [address] FINGERSTICK GLU 113 mg/dL High 74-106 [facility] Comment on above: Result Comment: BRISA GEMENT OF PATIENT CARE PER NURSING PROTOCOL Performed By: #### L 501.080 ####[facility] [address] [place], [address] FINGERSTICK GLU 145 mg/dL High 74-106 [facility] Comment on above: Result Comment: BRISA GEMENT OF PATIENT CARE PER NURSING PROTOCOL Performed By: #### L 501.080 ####[facility] [address] [place], [address] CBC W/Diff, Automatedon 09-0 5-5 Absolute Lymph 1.47 X10 3/uL Normal 0.83-4.51 [facility] Comment on above: Performed By: #### L 100.0100, L503.5510, L500.4050 ####[facility] [address] [place], [address] Absolute Neut 3.9 X10 3/uL Normal 2.0-7.7 [facility] Comment on above: Performed By: #### L 100.0100, L503.5510, L500.4050 ####[facility] [address] [place], [address] Basophils/100 WBC (Bld) 0.8 % Normal 0-1 [facility] Comment on above: Performed By: #### L 100.0100, L503.5510, L500.4050 ####[facility] [facility] [address] [place], [address] Eosinophils/100 WBC (Bld) 5.7 % High 0-5 [facility] Comment on above: Performed By: #### L 100.0100, L503.5510, L500.4050 ####[facility] [address] [place], [address] Erythrocyte distribution width (RBC) [Ratio] 15.8 % High 11.6-14.6 [facility] Comment on above: Performed By: #### L 100.0100, L503.5510, L500.4050 ####[facility] [address] [place], [address] Hematocrit (Bld) [Volume fraction] 27.5 % Low 40-54 [facility] Comment on above: Performed By: #### L 100.0100, L503.5510, L500.4050 ####[facility] [address] [place], [address] Hemoglobin (Bld) [Mass/Vol] 9.0 g/dL Low 13.0-16.5 [facility] Comment on above: Performed By: #### L 100.0100, L503.5510, L500.4050 ####[facility] [address] [place], [address] IG% 0.500 Normal 0.0-0.9 [facility] Comment on above: Result Comment: IG% - Immature Granulocytes (promyelocytes, myelocytes andmetamyelocytes) > 1% indicates that a LEFT SHIFT is Present. Performed By: #### L 100.0100, L503.5510, L500.4050 ####[facility] [address] [place], [address] Lymphocytes/100 WBC (Bld) 22.5 % Normal 19-41 [facility] Comment on above: Performed By: #### L 100.0100, L503.5510, L500.4050 ####[facility] [address] [place], [address] MCH (RBC) [Entitic mass] 30.6 pg Normal 27.0-32.0 [facility] Comment on above: Performed By: #### L 100.0100, L503.5510, L500.4050 ####[facility] [address] [place], [address] MCHC (RBC) [Mass/Vol] 32.7 g/dL Normal 32-36 [facility] Comment on above: Performed By: #### L 100.0100, L503.5510, L500.4050 ####[facility] [address] [place], [address] MCV (RBC) [Entitic vol] 93.5 fL Normal 80-94 [facility] Comment on above: Performed By: #### L 100.0100, L503.5510, L500.4050 ####[facility] [address] [place], [address] Monocytes/100 WBC (Bld) 10.7 % High 0-10 [facility] Comment on above: Performed By: #### L 100.0100, L503.5510, L500.4050 ####[facility] [address] [place], [address] Neutrophils/100 WBC (Bld) 59.8 % Normal 47-70 [facility] Comment on above: Performed By: #### L 100.0100, L503.5510, L500.4050 ####[facility] [address] [place], [address] Nucleated RBC (Bld) [#/Vol] 0 10*3/uL Normal 0-5 [facility] Comment on above: Performed By: #### L 100.0100, L503.5510, L500.4050 ####[facility] [address] [place], [address] Platelet mean volume (Bld) [Entitic vol] 10.3 fL Normal 6.2-12.0 [facility] Comment on above: Performed By: #### L 100.0100, L503.5510, L500.4050 ####[facility] [address] [place], [address] Platelets (Bld) [#/Vol] 124 10*3/uL Low 150-450 [facility] Comment on above: Performed By: #### L 100.0100, L503.5510, L500.4050 ####[facility] [address] [place], [address] RBC (Bld) [#/Vol] 2.94 10*6/uL Low 4.6-6.2 [facility] Comment on above: Performed By: #### L 100.0100, L503.5510, L500.4050 ####[facility] [address] [place], [address] RDW SD 53.2 fl High 35.1-43.9 [facility] Comment on above: Performed By: #### L 100.0100, L503.5510, L500.4050 ####[facility] [address] [place], [address] WBC (Bld) [#/Vol] 6.5 10*3/uL Normal 4.4-11.0 [facility] Comment on above: Performed By: #### L 100.0100, L503.5510, L500.4050 ####[facility] [address] [place], [address] Comprehensive Metabolic Prof [facility] 04-08-2025 Albumin [Mass/Vol] 2.1 g/dL Low 3.5-5.0 [facility] Comment on above: Performed By: #### L 100.0100, L503.5510, L500.4050 ####[facility] [address] [place], [address] Albumin/Globulin [Mass ratio] 0.7 {ratio} Low 0.9-2.4 [facility] Comment on above: Performed By: #### L 100.0100, L503.5510, L500.4050 ####[facility] [address] [place], [address] ALK PHOS 146 U/L High 40-129 [facility] Comment on above: Performed By: #### L 100.0100, L503.5510, L500.4050 ####[facility] [address] [place], [address] ALT [Catalytic activity/Vol] 22 U/L Normal <=46 [facility] Comment on above: Performed By: #### L 100.0100, L503.5510, L500.4050 ####[facility] [address] [place], [address] AST [Catalytic activity/Vol] 44 U/L High <=37 [facility] Comment on above: Performed By: #### L 100.0100, L503.5510, L500.4050 ####[facility] [address] [place], [address] Bilirubin [Mass/Vol] 1.80 mg/dL High 0.00-1.30 [facility] Comment on above: Performed By: #### L 100.0100, L503.5510, L500.4050 ####[facility] [address] [place], [address] BUN/CRE 10.0 RATIO Normal 10-20 [facility] Comment on above: Performed By: #### L 100.0100, L503.5510, L500.4050 ####[facility] [address] [place], [address] Calcium [Mass/Vol] 8.4 mg/dL Normal 7.6-11.0 [facility] Comment on above: Performed By: #### L 100.0100, L503.5510, L500.4050 ####[facility] [address] [place], [address] Chloride [Moles/Vol] 111 mmol/L High 98-108 [facility] Comment on above: Performed By: #### L 100.0100, L503.5510, L500.4050 ####[facility] [address] [place], [address] CO2 [Moles/Vol] 16.1 mmol/L Low 21.0-32.0 [facility] Comment on above: Performed By: #### L 100.0100, L503.5510, L500.4050 ####[facility] [address] [place], [address] Creatinine [Mass/Vol] 1.00 mg/dL Normal 0.70-1.20 [facility] Comment on above: Performed By: #### L 100.0100, L503.5510, L500.4050 ####[facility] [address] [place], [address] ECRCL 92.41 ml/min Normal 50-250 [facility] Comment on above: Performed By: #### L 100.0100, L503.5510, L500.4050 ####[facility] [address] [place], [address] GAP 8 Normal 5-15 [facility] Comment on above: Performed By: #### L 100.0100, L503.5510, L500.4050 ####[facility] [address] [place], [address] GFR/1.73 sq M.predicted among non-blacks MDRD (S/P/Bld) [Vol rate/Area] 87 mL/min/{1.73_m2} Normal >60 [facility] Comment on above: Result Comment: mL/m in/1.73m2 CKD-EPI Creatinine Equation (2020) Performed By: #### L 100.0100, L503.5510, L500.4050 ####[facility] [address] [place], [address] Globulin (S) [Mass/Vol] 3.2 g/dL Normal 2.2-4.2 [facility] Comment on above: Performed By: #### L 100.0100, L503.5510, L500.4050 ####[facility] [address] [place], [address] Glucose [Mass/Vol] 113 mg/dL High 70-99 [facility] Comment on above: Performed By: #### L 100.0100, L503.5510, L500.4050 ####[facility] [address] [place], [address] Potassium [Moles/Vol] 3.9 mmol/L Normal 3.3-5.1 [facility] Comment on above: Performed By: #### L 100.0100, L503.5510, L500.4050 ####[facility] [address] [place], [address] Sodium [Moles/Vol] 135 mmol/L Normal 133-145 [facility] Comment on above: Performed By: #### L 100.0100, L503.5510, L500.4050 ####[facility] [address] [place], [address] T PROT 5.4 g/dL Low 5.9-8.4 [facility] Comment on above: Performed By: #### L 100.0100, L503.5510, L500.4050 ####[facility] [address] [place], [address] Urea nitrogen [Mass/Vol] 10 mg/dL Normal 4-19 [facility] Comment on above: Performed By: #### L 100.0100, L503.5510, L500.4050 ####[facility] [address] [place], [address] L509.7001on 04-08-2025 Procalcitonin 0.09 ng/mL Normal <=0.10 [facility] Comment on above: Result Comment: Inte rpretation:<0.10-0.25 ng/mL: Antibiotic therapy discouraged. Bacterialinfection unlikely.0.25-0.50 ng/mL: Antibiotic therapy encouraged. Bacterialinfection possible.>0.50 ng/mL: Antibiotic therapy strongly encouraged.Suggestive of presence of bacterial infection.PCT should always be interpreted in the clinical context ofthe patient. Therefore, clinicians should use the PCTresults in conjunction with other laboratory findings andclinical signs of the patient. Performed By: #### L 509.7001 ####[facility] [address] [place], [address] M100.019on 04-08-2025 M100.019 Negative Normal [facility] Comment on above: Performed By: #### M 100.019, M100.638 ####[facility] [address] [place], [address] RESPIRATORY PANEL MOLECULARo n 04-08-2025 RP PANEL Normal [facility] Comment on above: Performed By: #### M 100.019, M100.638 ####[facility] [address] [place], [address] Venous blood ammonia measure mentOrdered By: Maria Guadalupe Shore on 04-08-2025 Ammonia (P) [Moles/Vol] 105.0 umol/L High 16-60 [facility] 12 Lead EKGon 04-07-2025 12 Lead EKG Normal [facility] Absolute lymphocyte countOrd ered By: Rachel Joiner on 04-07-2025 Lymphocytes Auto (Unsp spec) [#/Vol] 1.32 10*3/uL 0.83-4.51 [facility] Ammoniaon 04-07-2025 Ammonia (P) [Moles/Vol] 143.0 umol/L High 16-60 [facility] Comment on above: Performed By: #### L 501.2450, L500.3400, L100.0100, L500.2500, L503.5510 ####[facility] [address] [place], [address] Anion gap in Serum or Plasma Ordered By: Rachel Joiner on 04-07-2025 Anion gap [Moles/Vol] 9 mmol/L 5-15 [facility] Automated lymphocyte count a s percentage of total leukocytesOrdered By: Rachel Joiner on 04-07-2025 Lymphocytes/100 WBC Auto (Unsp spec) 16.8 % Low 19-41 [facility] BUN/creatinine ratioOrdered By: Rachel Joiner on 04-07-2025 Urea nitrogen/Creatinine [Mass ratio] 10.5 mg/mg 10-20 [facility] Basic Metabolic Profile (BMP )on 04-07-2025 BUN/CRE 10.5 RATIO Normal - [facility] Comment on above: Performed By: #### L 501.2450, L500.3400, L100.0100, L500.2500, L503.5510 ####[facility] [address] [place], [address] Calcium [Mass/Vol] 8.6 mg/dL Normal 7.6-11.0 [facility] Comment on above: Performed By: #### L 501.2450, L500.3400, L100.0100, L500.2500, L503.5510 ####[facility] [address] [place], [address] Chloride [Moles/Vol] 110 mmol/L High 98-108 [facility] Comment on above: Performed By: #### L 501.2450, L500.3400, L100.0100, L500.2500, L503.5510 ####[facility] [address] [place], [address] CO2 [Moles/Vol] 16.9 mmol/L Low 21.0-32.0 [facility] Comment on above: Performed By: #### L 501.2450, L500.3400, L100.0100, L500.2500, L503.5510 ####[facility] [address] [place], [address] Creatinine [Mass/Vol] 1.04 mg/dL Normal 0.70-1.20 [facility] Comment on above: Performed By: #### L 501.2450, L500.3400, L100.0100, L500.2500, L503.5510 ####[facility] [address] [place], [address] GAP 9 Normal 5-15 [facility] Comment on above: Performed By: #### L 501.2450, L500.3400, L100.0100, L500.2500, L503.5510 ####[facility] [address] [place], [address] GFR/1.73 sq M.predicted among non-blacks MDRD (S/P/Bld) [Vol rate/Area] 83 mL/min/{1.73_m2} Normal >60 [facility] Comment on above: Result Comment: mL/m in/1.73m2 CKD-EPI Creatinine Equation (2020) Performed By: #### L 501.2450, L500.3400, L100.0100, L500.2500, L503.5510 ####[facility] [address] [place], [address] Glucose [Mass/Vol] 106 mg/dL High 70-99 [facility] Comment on above: Performed By: #### L 501.2450, L500.3400, L100.0100, L500.2500, L503.5510 ####[facility] [address] [place], [address] Potassium [Moles/Vol] 4.0 mmol/L Normal 3.3-5.1 [facility] Comment on above: Performed By: #### L 501.2450, L500.3400, L100.0100, L500.2500, L503.5510 ####[facility] [address] [place], [address] Sodium [Moles/Vol] 136 mmol/L Normal 133-145 [facility] Comment on above: Performed By: #### L 501.2450, L500.3400, L100.0100, L500.2500, L503.5510 ####[facility] [address] [place], [address] Urea nitrogen [Mass/Vol] 11 mg/dL Normal 4-19 [facility] Comment on above: Performed By: #### L 501.2450, L500.3400, L100.0100, L500.2500, L503.5510 ####[facility] [address] [place], [address] Basophil percentageOrdered B y: Rachel Joiner on 04-07-2025 Basophils/100 WBC (Bld) 0.6 % 0-1 [facility] Bedside Glucoseon 04-07-2025 FINGERSTICK GLU 81 mg/dL Normal 74-106 [facility] Comment on above: Result Comment: BRISA MOROCHO OF PATIENT CARE PER NURSING PROTOCOL Performed By: #### L 501.080 ####[facility] [address] [place], [address] Bilirubin Test strip Ql (U)O rdered By: Rachel Joiner on 04-07-2025 Bilirubin Ql (U) Negative Negative [facility] Bilirubin directOrdered By: Rachel Joiner on 04-07-2025 Bilirubin.direct [Mass/Vol] 1.11 mg/dL High 0.00-0.30 [facility] Bilirubin, totalOrdered By: Rachel Joiner on 04-07-2025 Bilirubin [Mass/Vol] 1.76 mg/dL High 0.00-1.30 [facility] CBC W/Diff, Automatedon Absolute Lymph 1.32 X10 3/uL Normal 0.83-4.51 [facility] Comment on above: Performed By: #### L 501.2450, L500.3400, L100.0100, L500.2500, L503.5510 ####[facility] [address] [place], [address] Absolute Neut 5.3 X10 3/uL Normal 2.0-7.7 [facility] Comment on above: Performed By: #### L 501.2450, L500.3400, L100.0100, L500.2500, L503.5510 ####[facility] [address] [place], [address] Basophils/100 WBC (Bld) 0.6 % Normal 0-1 [facility] Comment on above: Performed By: #### L 501.2450, L500.3400, L100.0100, L500.2500, L503.5510 ####[facility] [address] [place], [address] Eosinophils/100 WBC (Bld) 5.2 % High 0-5 [facility] Comment on above: Performed By: #### L 501.2450, L500.3400, L100.0100, L500.2500, L503.5510 ####[facility] [address] [place], [address] Erythrocyte distribution width (RBC) [Ratio] 15.5 % High 11.6-14.6 [facility] Comment on above: Performed By: #### L 501.2450, L500.3400, L100.0100, L500.2500, L503.5510 ####[facility] [address] [place], [address] Hematocrit (Bld) [Volume fraction] 27.7 % Low 40-54 [facility] Comment on above: Performed By: #### L 501.2450, L500.3400, L100.0100, L500.2500, L503.5510 ####[facility] [address] [place], [address] Hemoglobin (Bld) [Mass/Vol] 9.1 g/dL Low 13.0-16.5 [facility] Comment on above: Performed By: #### L 501.2450, L500.3400, L100.0100, L500.2500, L503.5510 ####[facility] [address] [place], [address] IG% 0.500 Normal 0.0-0.9 [facility] Comment on above: Result Comment: IG% - Immature Granulocytes (promyelocytes, myelocytes andmetamyelocytes) > 1% indicates that a LEFT SHIFT is Present. Performed By: #### L 501.2450, L500.3400, L100.0100, L500.2500, L503.5510 ####[facility] [address] [place], [address] Lymphocytes/100 WBC (Bld) 16.8 % Low 19-41 [facility] Comment on above: Performed By: #### L 501.2450, L500.3400, L100.0100, L500.2500, L503.5510 ####[facility] [address] [place], [address] MCH (RBC) [Entitic mass] 29.7 pg Normal 27.0-32.0 [facility] Comment on above: Performed By: #### L 501.2450, L500.3400, L100.0100, L500.2500, L503.5510 ####[facility] [address] [place], [address] MCHC (RBC) [Mass/Vol] 32.9 g/dL Normal 32-36 [facility] Comment on above: Performed By: #### L 501.2450, L500.3400, L100.0100, L500.2500, L503.5510 ####[facility] [address] [place], [address] MCV (RBC) [Entitic vol] 90.5 fL Normal 80-94 [facility] Comment on above: Performed By: #### L 501.2450, L500.3400, L100.0100, L500.2500, L503.5510 ####[facility] [address] [place], [address] Monocytes/100 WBC (Bld) 9.9 % Normal 0-10 [facility] Comment on above: Performed By: #### L 501.2450, L500.3400, L100.0100, L500.2500, L503.5510 ####[facility] [address] [place], [address] Neutrophils/100 WBC (Bld) 67.0 % Normal 47-70 [facility] Comment on above: Performed By: #### L 501.2450, L500.3400, L100.0100, L500.2500, L503.5510 ####[facility] [address] [place], [address] Nucleated RBC (Bld) [#/Vol] 0 10*3/uL Normal 0-5 [facility] Comment on above: Performed By: #### L 501.2450, L500.3400, L100.0100, L500.2500, L503.5510 ####[facility] [address] [place], [address] Platelet mean volume (Bld) [Entitic vol] 10.8 fL Normal 6.2-12.0 [facility] Comment on above: Performed By: #### L 501.2450, L500.3400, L100.0100, L500.2500, L503.5510 ####[facility] [address] [place], [address] Platelets (Bld) [#/Vol] 164 10*3/uL Normal 150-450 [facility] Comment on above: Performed By: #### L 501.2450, L500.3400, L100.0100, L500.2500, L503.5510 ####[facility] [address] [place], [address] RBC (Bld) [#/Vol] 3.06 10*6/uL Low 4.6-6.2 [facility] Comment on above: Performed By: #### L 501.2450, L500.3400, L100.0100, L500.2500, L503.5510 ####[facility] [address] [place], [address] RDW SD 50.8 fl High 35.1-43.9 [facility] Comment on above: Performed By: #### L 501.2450, L500.3400, L100.0100, L500.2500, L503.5510 ####[facility] [address] [place], [address] WBC (Bld) [#/Vol] 7.9 10*3/uL Normal 4.4-11.0 [facility] Comment on above: Performed By: #### L 501.2450, L500.3400, L100.0100, L500.2500, L503.5510 ####[facility] [address] [place], [address] Carbon dioxide, total [Moles /volume] in Central venous bloodOrdered By: Rachel Joiner on 04-07-2025 CO2 [Moles/Vol] 16.9 mmol/L Low 21.0-32.0 [facility] Chloride assayOrdered By: Brendan Joiner on 04-07-2025 Chloride [Moles/Vol] 110 mmol/L High 98-108 [facility] Emergency Department Summary on 04-07-2025 Emergency Department Summary Normal [facility] Eosinophil percentageOrdered By: Rachel Joiner on 04-07-2025 Eosinophils/100 WBC (Bld) 5.2 % High 0-5 [facility] Erythrocyte distribution wid th ratioOrdered By: Rachel Joiner on 04-07-2025 Erythrocyte distribution width (RBC) [Ratio] 15.5 % High 11.6-14.6 [facility] Erythrocyte distribution wid th standard deviationOrdered By: Rachel Joiner on 04-07-2025 Erythrocyte distribution width (RBC) [Ratio] 50.8 fl High 35.1-43.9 [facility] Glomerular filtration rate ( GFR) estimation/1.73 sq m using serum, plasma, or whole bOrdered By: Rachel Joiner on 04-07-2025 GFR/1.73 sq M.predicted among non-blacks MDRD (S/P/Bld) [Vol rate/Area] 83 mL/min/{1.73_m2} >60 [facility] Glucose measurement at bedsi deOrdered By: ED PROVIDER on 04-07-2025 Glucose [Mass/Vol] 81 mg/dL 74-106 [facility] H AND P Exam - Hospitaliston 04-07-2025 H&P Exam - Hospitalist Normal [facility] Hematocrit Auto (Bld) [Volum e fraction]Ordered By: Rachel Joiner on 04-07-2025 Hematocrit (Bld) [Volume fraction] 27.7 % Low 40-54 [facility] Hemoglobin measurementOrdere d By: Rachel Joiner on 04-07-2025 Hemoglobin (Bld) [Mass/Vol] 9.1 g/dL Low 13.0-16.5 [facility] Immature granulocytes/100 WB C Auto (Bld)Ordered By: Rachel Joiner on 04-07-2025 Immature granulocytes/100 WBC (Bld) 0.500 % 0.0-0.9 [facility] Ketones Test strip Ql (U)Ord ered By: Rachel Joiner on 04-07-2025 Ketones Ql (U) Negative Negative [facility] Lipaseon 04-07-2025 Lipase [Catalytic activity/Vol] 47 U/L Normal 13-75 [facility] Comment on above: Result Comment: Siddhartha bhat note:LIPASE revised reference range effective 22.New Lipase methodology. Expected to produce lower valuesthan the previous assay method.NEW Reference Range: 13 - 75 U/L Performed By: #### L 501.2450, L500.3400, L100.0100, L500.2500, L503.5510 ####[facility] [address] [place], [address] Liver Profileon 04-07-2025 Albumin [Mass/Vol] 2.4 g/dL Low 3.5-5.0 [facility] Comment on above: Performed By: #### L 501.2450, L500.3400, L100.0100, L500.2500, L503.5510 ####[facility] [address] [place], [address] ALK PHOS 176 U/L High 40-129 [facility] Comment on above: Performed By: #### L 501.2450, L500.3400, L100.0100, L500.2500, L503.5510 ####[facility] [address] [place], [address] ALT [Catalytic activity/Vol] 23 U/L Normal <=46 [facility] Comment on above: Performed By: #### L 501.2450, L500.3400, L100.0100, L500.2500, L503.5510 ####[facility] [address] [place], [address] AST [Catalytic activity/Vol] 48 U/L High <=37 [facility] Comment on above: Performed By: #### L 501.2450, L500.3400, L100.0100, L500.2500, L503.5510 ####[facility] [address] [place], [address] Bilirubin [Mass/Vol] 1.76 mg/dL High 0.00-1.30 [facility] Comment on above: Performed By: #### L 501.2450, L500.3400, L100.0100, L500.2500, L503.5510 ####[facility] [address] [place], [address] Bilirubin.direct [Mass/Vol] 1.11 mg/dL High 0.00-0.30 [facility] Comment on above: Performed By: #### L 501.2450, L500.3400, L100.0100, L500.2500, L503.5510 ####[facility] [address] [place], [address] Globulin (S) [Mass/Vol] 3.8 g/dL Normal 2.2-4.2 [facility] Comment on above: Performed By: #### L 501.2450, L500.3400, L100.0100, L500.2500, L503.5510 ####[facility] [address] [place], [address] T PROT 6.1 g/dL Normal 5.9-8.4 [facility] Comment on above: Performed By: #### L 501.2450, L500.3400, L100.0100, L500.2500, L503.5510 ####[facility] [address] [place], [address] MCV (mean corpuscular volume ) determinationOrdered By: Rachel Joiner on 04-07-2025 MCV (RBC) [Entitic vol] 90.5 fL 80-94 [facility] Magnesiumon 04-07-2025 Magnesium [Mass/Vol] 1.7 mg/dL Normal 1.5-2.2 [facility] Comment on above: Order Comment: Comme nts: May add to ED labsComments: may add to ED labs Performed By: #### L 501.5200, L501.2300 ####[facility] [address] [place], [address] Magnesium measurement (mass/ volume)Ordered By: Maria Guadalupe Shore on 04-07-2025 Magnesium (Unsp spec) [Mass/Vol] 1.7 mg/dL 1.5-2.2 [facility] Mean corpuscular hemoglobin (MCH) determinationOrdered By: Rachel Joiner on 04-07-2025 MCH (RBC) [Entitic mass] 29.7 pg 27.0-32.0 [facility] Monocyte percentageOrdered B y: Rachel Joiner on 04-07-2025 Monocytes/100 WBC (Bld) 9.9 % 0-10 [facility] Mucus LM Ql (Urine sed)Order ed By: Rachel Joiner on 04-07-2025 Mucus Ql (Urine sed) 0 SEEN /hpf [facility] Neutrophil percentageOrdered By: Rachel Joiner on 04-07-2025 Neutrophils/100 WBC (Bld) 67.0 % 47-70 [facility] Nitrite Test strip Ql (U)Ord ered By: Rachel Joiner on 04-07-2025 Nitrite Ql (U) Negative Negative [facility] No Panel InformationOrdered By: Rachel Joiner on 04-07-2025 48 U/L High <38 [facility] Phosphoruson 04-07-2025 Phosphate [Mass/Vol] 3.0 mg/dL Normal 2.7-4.5 [facility] Comment on above: Order Comment: Comme nts: May add to ED labsComments: may add to ED labs Performed By: #### L 501.5200, L501.2300 ####[facility] [address] [place], [address] Platelet countOrdered By: Brendan Joiner on 04-07-2025 Platelets (Bld) [#/Vol] 164 10*3/uL 150-450 [facility] Potassium measurement (mass/ volume)Ordered By: Rachel Joiner on 04-07-2025 Potassium (Unsp spec) [Mass/Vol] 4.0 mmol/L 3.3-5.1 [facility] Procalcitonin [Mass/volume] in Serum or Plasma by ImmunoassayOrdered By: Maria Guadalupe Shore on 04-07-2025 Procalcitonin IA [Mass/Vol] 0.09 ng/mL <0.11 [facility] Protein Test strip Ql (U)Ord ered By: Rachel Joiner on 04-07-2025 Protein Ql (U) 100 mg/dl High Negative [facility] RBC Auto (Bld) [#/Vol]Ordere d By: Rachel Joiner on 04-07-2025 RBC (Bld) [#/Vol] 3.06 10*6/uL Low 4.6-6.2 [facility] Respiratory pathogens detect ion panel by molecular detection methodOrdered By: Maria Guadalupe Shore on 04-07-2025 Respiratory pathogens DNA and RNA panel ANANTH+probe (Resp) Rhinovirus Abnormal [facility] [id number] By: Maria Guadalupe Shore on 04-07-2025 SARS-CoV-2 (COVID-19) RNA ANANTH+probe Ql (Unsp spec) [facility] Serum creatinine measurement (mass/volume)Ordered By: Rachel Joiner on 04-07-2025 Creatinine [Mass/Vol] 1.04 mg/dL 0.70-1.20 [facility] Serum globulin measurementOr dered By: Rachel Jonier on 04-07-2025 Globulin (S) [Mass/Vol] 3.8 g/dL 2.2-4.2 [facility] Serum glucose measurement (m ass/volume)Ordered By: Rachel Joiner on 04-07-2025 Glucose [Mass/Vol] 106 mg/dL High 70-99 [facility] Serum or plasma alanine thomas otransferase (ALT) measurementOrdered By: Rachel Joiner on 04-07-2025 ALT [Catalytic activity/Vol] 23 U/L <47 [facility] Serum or plasma albumin roosevelt urement (mass/volume)Ordered By: Rachel Joiner on 04-07-2025 Albumin [Mass/Vol] 2.4 g/dL Low 3.5-5.0 [facility] Serum or plasma alkaline kendrick sphatase measurementOrdered By: Rachel Joiner on 04-07-2025 ALP [Catalytic activity/Vol] 176 U/L High 40-129 [facility] Serum or plasma calcium roosevelt urement (mass/volume)Ordered By: Rachel Joiner on 04-07-2025 Calcium [Mass/Vol] 8.6 mg/dL 7.6-11.0 [facility] Serum or plasma urea nitroge n measurement (mass/volume)Ordered By: Rachel Joiner on 04-07-2025 Urea nitrogen [Mass/Vol] 11 mg/dL 4-19 [facility] Sodium levelOrdered By: Kateryna Joiner on 04-07-2025 Sodium [Moles/Vol] 136 mmol/L 133-145 [facility] Squamous epithelial cells de tection in urine sediment by light microscopyOrdered By: Rachel Joiner on 04-07-2025 Epithelial cells.squamous LM Ql (Urine sed) 0 SEEN /hpf 0-5 [facility] Total proteinOrdered By: Shi Joiner on 04-07-2025 Protein [Mass/Vol] 6.1 g/dL 5.9-8.4 [facility] Urinalysis, Completeon 04-07 BACTERIA 1+ /hpf Normal None Seen [facility] Comment on above: Order Comment: CLEAN CATCH Performed By: #### L 400.0001 ####[facility] [address] [place], [place], [id number] RBC 50-100 SEEN Normal 0-5 [facility] Comment on above: Order Comment: CLEAN CATCH Performed By: #### L 400.0001 ####[facility] [address] [place], [address] WBC 0-5 SEEN Normal 0-5 [facility] Comment on above: Order Comment: CLEAN CATCH Performed By: #### L 400.0001 ####[facility] [address] [place], [address] EPI,SQUAMOUS 0 SEEN Normal 0-5 [facility] Comment on above: Order Comment: CLEAN CATCH Performed By: #### L 400.0001 ####[facility] [address] [place], [address] Mucus Ql (Urine sed) 0 SEEN Normal [facility] Comment on above: Order Comment: CLEAN CATCH Performed By: #### L 400.0001 ####[facility] [address] [place], [place], [id number] Urine clarityOrdered By: Shi Joiner on 04-07-2025 Clarity (U) Sl. Cloudy Clear [facility] Urine color determinationOrd ered By: Rachel Joiner on 04-07-2025 Color (U) Yellow Yellow [facility] Urine cultureOrdered By: Shi Joiner on 04-07-2025 Bacteria identified Cx Nom (U) Culture exhibits no growth. [facility] Urine glucose detectionOrder ed By: Rachel Joiner on 04-07-2025 Glucose Ql (U) Normal mg/dl Normal [facility] Urine leukocyte esterase det ection by dipstickOrdered By: Rachel Joiner on 04-07-2025 Leukocyte esterase Test strip Ql (U) 500 /ul High Negative [facility] Urine pHOrdered By: Rachel silva on 04-07-2025 pH (U) 6.5 [pH] 5.0 - 8.0 [facility] Urine sediment bacteria coun t by microscopy (number/high power field)Ordered By: Rachel Joiner on 04-07-2025 Bacteria LM.HPF (Urine sed) [#/Area] 1 /[HPF] None Seen [facility] Urine specific gravity measu rementOrdered By: Rachel Joiner on 04-07-2025 Specific gravity (U) [Rel density] 1.015 1.002-1.030 [facility] Urine urobilinogen measureme ntOrdered By: Rachel Joiner on 04-07-2025 Urobilinogen Ql (U) Normal mg/dl Normal [facility] Venous blood ammonia measure mentOrdered By: Rachel Joiner on 04-07-2025 Ammonia (P) [Moles/Vol] 143.0 umol/L High 16-60 [facility] White blood cell (WBC) count Ordered By: Rachel Joiner on 04-07-2025 WBC (Bld) [#/Vol] 7.9 10*3/uL 4.4-11.0 [facility] White blood cell countOrdere d By: Rachel Joiner on 04-07-2025 White blood cell count 0-5 SEEN /hpf 0-5 [facility] 12 Lead EKGon 04-03-2025 12 Lead EKG Normal [facility] CBC W/Diff, Automatedon 03-06 Absolute Neut Normal 2.0-7.7 [facility] Comment on above: Result Comment: Canc elled via OM: MD Ordered Performed By: #### L 100.0100, L300.3900, L500.4050 ####[facility] [address] [place], [address] HCT Normal 40-54 [facility] Comment on above: Result Comment: Canc elled via OM: MD Ordered Performed By: #### L 100.0100, L300.3900, L500.4050 ####[facility] [address] [place], [address] HGB Normal 13.0-16.5 [facility] Comment on above: Result Comment: Canc elled via OM: MD Ordered Performed By: #### L 100.0100, L300.3900, L500.4050 ####[facility] [address] [place], [address] MCH Normal 27.0-32.0 [facility] Comment on above: Result Comment: Canc elled via OM: MD Ordered Performed By: #### L 100.0100, L300.3900, L500.4050 ####[facility] [address] [place], [address] MCHC Normal 32-36 [facility] Comment on above: Result Comment: Canc elled via OM: MD Ordered Performed By: #### L 100.0100, L300.3900, L500.4050 ####[facility] [address] [place], [address] MCV Normal 80-94 [facility] Comment on above: Result Comment: Canc elled via OM: MD Ordered Performed By: #### L 100.0100, L300.3900, L500.4050 ####[facility] [address] [place], [address] NEUT% Normal 47-70 [facility] Comment on above: Result Comment: Canc elled via OM: MD Ordered Performed By: #### L 100.0100, L300.3900, L500.4050 ####[facility] [address] [place], [address] PLT Normal 150-450 [facility] Comment on above: Result Comment: Canc elled via OM: MD Ordered Performed By: #### L 100.0100, L300.3900, L500.4050 ####[facility] [address] [place], [address] RBC Normal 4.6-6.2 [facility] Comment on above: Result Comment: Canc elled via OM: MD Ordered Performed By: #### L 100.0100, L300.3900, L500.4050 ####[facility] [address] [place], [address] RDW CV Normal 11.6-14.6 [facility] Comment on above: Result Comment: Canc elled via OM: MD Ordered Performed By: #### L 100.0100, L300.3900, L500.4050 ####[facility] [address] [place], [address] RDW SD Normal 35.1-43.9 [facility] Comment on above: Result Comment: Canc elled via OM: MD Ordered Performed By: #### L 100.0100, L300.3900, L500.4050 ####[facility] [address] [place], [address] WBC Normal 4.4-11.0 [facility] Comment on above: Result Comment: Canc elled via OM: MD Ordered Performed By: #### L 100.0100, L300.3900, L500.4050 ####[facility] [address] [place], [address] Comprehensive Metabolic Prof ilon 04-03-2025 ALB Normal 3.5-5.0 [facility] Comment on above: Result Comment: Canc elled via OM: MD Ordered Performed By: #### L 100.0100, L300.3900, L500.4050 ####[facility] [address] [place], [address] ALK PHOS Normal 40-129 [facility] Comment on above: Result Comment: Canc elled via OM: MD Ordered Performed By: #### L 100.0100, L300.3900, L500.4050 ####[facility] [address] [place], [address] ALT Normal <=46 [facility] Comment on above: Result Comment: Canc elled via OM: MD Ordered Performed By: #### L 100.0100, L300.3900, L500.4050 ####[facility] [address] [place], [address] AST Normal <=37 [facility] Comment on above: Result Comment: Canc elled via OM: MD Ordered Performed By: #### L 100.0100, L300.3900, L500.4050 ####[facility] [address] [place], [address] BUN Normal 4-19 [facility] Comment on above: Result Comment: Canc elled via OM: MD Ordered Performed By: #### L 100.0100, L300.3900, L500.4050 ####[facility] [address] [place], [address] BUN/CRE Normal 10-20 [facility] Comment on above: Result Comment: Canc elled via OM: MD Ordered Performed By: #### L 100.0100, L300.3900, L500.4050 ####[facility] [address] [place], [address] Calcium Normal 7.6-11.0 [facility] Comment on above: Result Comment: Canc elled via OM: MD Ordered Performed By: #### L 100.0100, L300.3900, L500.4050 ####[facility] [address] [place], [address] CL Normal 98-108 [facility] Comment on above: Result Comment: Canc elled via OM: MD Ordered Performed By: #### L 100.0100, L300.3900, L500.4050 ####[facility] [address] [place], [address] CO2 Normal 21.0-32.0 [facility] Comment on above: Result Comment: Canc elled via OM: MD Ordered Performed By: #### L 100.0100, L300.3900, L500.4050 ####[facility] [address] [place], [address] CREAT,SERUM Normal 0.70-1.20 [facility] Comment on above: Result Comment: Canc elled via OM: MD Ordered Performed By: #### L 100.0100, L300.3900, L500.4050 ####[facility] [address] [place], [address] eGFR Normal >60 [facility] Comment on above: Result Comment: Canc elled via OM: MD Ordered Performed By: #### L 100.0100, L300.3900, L500.4050 ####[facility] [address] [place], [address] GAP Normal 5-15 [facility] Comment on above: Result Comment: Canc elled via OM: MD Ordered Performed By: #### L 100.0100, L300.3900, L500.4050 ####[facility] [address] [place], [address] GLU Normal 70-99 [facility] Comment on above: Result Comment: Canc elled via OM: MD Ordered Performed By: #### L 100.0100, L300.3900, L500.4050 ####[facility] [address] [place], [address] Potassium Normal 3.3-5.1 [facility] Comment on above: Result Comment: Canc elled via OM: MD Ordered Performed By: #### L 100.0100, L300.3900, L500.4050 ####[facility] [address] [place], [address] T BILI Normal 0.00-1.30 [facility] Comment on above: Result Comment: Canc elled via OM: MD Ordered Performed By: #### L 100.0100, L300.3900, L500.4050 ####[facility] [address] [place], [address] T PROT Normal 5.9-8.4 [facility] Comment on above: Result Comment: Canc elled via OM: MD Ordered Performed By: #### L 100.0100, L300.3900, L500.4050 ####[facility] [address] [place], [address] Comprehensive Metabolic Profil Normal 133-145 [facility] Comment on above: Result Comment: Devonte elled via OM: MD Ordered Performed By: #### L 100.0100, L300.3900, L500.4050 ####[facility] [address] [place], [address] Emergency Department Summary on 04-03-2025 Emergency Department Summary Normal [facility] Prothrombin Time w/INRon INR Normal [facility] Comment on above: Result Comment: Devonte mckeoned via OM: MD Ordered Performed By: #### L 100.0100, L300.3900, L500.4050 ####[facility] [address] [place], [address] PROTIME Normal 11.7-14.9 [facility] Comment on above: Result Comment: Devonte mckeoned via OM: MD Ordered Performed By: #### L 100.0100, L300.3900, L500.4050 ####[facility] [address] [place], [address] Bedside Glucoseon 03-31-2025 FINGERSTICK GLU 111 mg/dL High 74-106 [facility] Comment on above: Result Comment: BRISA MOROCHO OF PATIENT CARE PER NURSING PROTOCOL Performed By: #### L 501.080 ####[facility] [address] [place], [address] Discharge Instructionon -2 Discharge Instruction Normal [facility] deOrdered By: Roby Balderas on 03-30-2025 Glucose [Mass/Vol] 111 mg/dL High 74-106 [facility] MR/POSTOP.ANEon 03-30-2025 MR/POSTOP.ANE Normal [facility] MR/JYLBIBXV4jn 03-30-2025 MR/POSTOPAN2 Normal [facility] Operative Reporton Operative Report Normal [facility] Bedside Glucoseon 03-29-2025 FINGERSTICK GLU 147 mg/dL High 74-106 [facility] Comment on above: Result Comment: BRISA MOROCHO OF PATIENT CARE PER NURSING PROTOCOL Performed By: #### L 501.080 ####[facility] [address] [place], [address] Absolute lymphocyte countOrd ered By: Day Bird on 03-11-2025 Lymphocytes Auto (Unsp spec) [#/Vol] 1.03 10*3/uL 0.83-4.51 [facility] Anion gap in Serum or Plasma Ordered By: Day Bird on 03-11-2025 Anion gap [Moles/Vol] 11 mmol/L 5-15 [facility] Automated lymphocyte count a s percentage of total leukocytesOrdered By: Day Bird on 03-11-2025 Lymphocytes/100 WBC Auto (Unsp spec) 12.6 % Low 19-41 [facility] BUN/creatinine ratioOrdered By: Day Bird on 03-11-2025 Urea nitrogen/Creatinine [Mass ratio] 12.0 mg/mg 10- [facility] Basic Metabolic Profile (BMP )on 03-11-2025 BUN/CRE 12.0 RATIO Normal - [facility] Comment on above: Performed By: #### L 500.2500, L100.0100, L501.6901 ####[facility] [address] [place], [address] Calcium [Mass/Vol] 8.0 mg/dL Normal 7.6-11.0 [facility] Comment on above: Performed By: #### L 500.2500, L100.0100, L501.6901 ####[facility] [address] [place], [address] Chloride [Moles/Vol] 96 mmol/L Low 98-108 [facility] Comment on above: Performed By: #### L 500.2500, L100.0100, L501.6901 ####[facility] [address] [place], [address] CO2 [Moles/Vol] 21.4 mmol/L Normal 21.0-32.0 [facility] Comment on above: Performed By: #### L 500.2500, L100.0100, L501.6901 ####[facility] [address] [place], [address] Creatinine [Mass/Vol] 1.30 mg/dL High 0.70-1.20 [facility] Comment on above: Performed By: #### L 500.2500, L100.0100, L501.6901 ####[facility] [address] [place], [address] ECRCL 69.27 ml/min Normal 50-250 [facility] Comment on above: Performed By: #### L 500.2500, L100.0100, L501.6901 ####[facility] [address] [place], [address] GAP 11 Normal 5-15 [facility] Comment on above: Performed By: #### L 500.2500, L100.0100, L501.6901 ####[facility] [address] [place], [address] GFR/1.73 sq M.predicted among non-blacks MDRD (S/P/Bld) [Vol rate/Area] 64 mL/min/{1.73_m2} Normal >60 [facility] Comment on above: Result Comment: mL/m in/1.73m2 CKD-EPI Creatinine Equation (2020) Performed By: #### L 500.2500, L100.0100, L501.6901 ####[facility] [address] [place], [address] Glucose [Mass/Vol] 495 mg/dL Invalid Interpretation Code 70-99 [facility] Comment on above: Result Comment: Crit ical Result(s) Called DEE ROCA at: 1812 by:LAURIE??Results read back by same. Performed By: #### L 500.2500, L100.0100, L501.6901 ####[facility] [address] [place], [address] Potassium [Moles/Vol] 2.8 mmol/L Low 3.3-5.1 [facility] Comment on above: Performed By: #### L 500.2500, L100.0100, L501.6901 ####[facility] [address] [place], [address] Sodium [Moles/Vol] 128 mmol/L Low 133-145 [facility] Comment on above: Performed By: #### L 500.2500, L100.0100, L501.6901 ####[facility] [address] [place], [address] Urea nitrogen [Mass/Vol] 16 mg/dL Normal 4-19 [facility] Comment on above: Performed By: #### L 500.2500, L100.0100, L501.6901 ####[facility] [address] [place], [address] Basophil percentageOrdered B y: Day Bird on 03-11-2025 Basophils/100 WBC (Bld) 0.6 % 0-1 [facility] Bedside Glucoseon 03-11-2025 FINGERSTICK GLU 412 mg/dL High 74-106 [facility] Comment on above: Result Comment: BRISA MOROCHO OF PATIENT CARE PER NURSING PROTOCOL Performed By: #### L 501.080 ####[facility] [address] [place], [address] FINGERSTICK GLU 494 mg/dL Invalid Interpretation Code 74-106 [facility] Comment on above: Result Comment: Dr Amalia De Los SantosAGEMENT OF PATIENT CARE PER NURSING PROTOCOL Performed By: #### L 501.080 ####[facility] [address] [place], [address] FINGERSTICK GLU > 500 Invalid Interpretation Code 74-106 [facility] Comment on above: Result Comment: Dr Amalia webster FollowedMANAGEMENT OF PATIENT CARE PER NURSING PROTOCOL Performed By: #### L 501.080 ####[facility] [address] [place], [address] Beta-Hydroxbytyrateon 2024 BETA-HYDROXYBUT 0.0 mmol/L Normal 0.0-0.3 [facility] Comment on above: Performed By: #### L 500.2500, L100.0100, L501.6901 ####[facility] [address] [place], [address] Beta-hydroxybutyrateOrdered By: Day Bird on 03-11-2025 Beta hydroxybutyrate [Mass/Vol] 0.0 mmol/L 0.0-0.3 [facility] Blood manual differential co mment interpretation (narrative result)Ordered By: Day Bird on 03-11-2025 Manual differential comment Marco Antonio (Bld) [Interp] SCANNED [facility] CBC W/Diff, Automatedon PLT EST MOD DEC Normal ADEQ [facility] Comment on above: Performed By: #### L 500.2500, L100.0100, L501.6901 ####[facility] [address] [place], [address] SMEAR COMMENT SCANNED Normal [facility] Comment on above: Performed By: #### L 500.2500, L100.0100, L501.6901 ####[facility] [address] [place], [address] Platelet mean volume (Bld) [Entitic vol] 12.1 fL High 6.2-12.0 [facility] Comment on above: Performed By: #### L 500.2500, L100.0100, L501.6901 ####[facility] [address] [place], [address] Platelets (Bld) [#/Vol] 94 10*3/uL Low 150-450 [facility] Comment on above: Performed By: #### L 500.2500, L100.0100, L501.6901 ####[facility] [address] [place], [place], [id number] Carbon dioxide, total [Moles /volume] in Central venous bloodOrdered By: Day Bird on 03-11-2025 CO2 [Moles/Vol] 21.4 mmol/L 21.0-32.0 [facility] Chloride assayOrdered By: Sarah Bird on 03-11-2025 Chloride [Moles/Vol] 96 mmol/L Low 98-108 [facility] Emergency Department Summary on 03-11-2025 Emergency Department Summary Normal [facility] Eosinophil percentageOrdered By: Day Bird on 03-11-2025 Eosinophils/100 WBC (Bld) 5.2 % High 0-5 [facility] Erythrocyte distribution wid th ratioOrdered By: Day Bird on 03-11-2025 Erythrocyte distribution width (RBC) [Ratio] 18.8 % High 11.6-14.6 [facility] Erythrocyte distribution wid th standard deviationOrdered By: Day Bird on 03-11-2025 Erythrocyte distribution width (RBC) [Ratio] 63.4 fl High 35.1-43.9 [facility] Glomerular filtration rate ( GFR) estimation/1.73 sq m using serum, plasma, or whole bOrdered By: Day Bird on 03-11-2025 GFR/1.73 sq M.predicted among non-blacks MDRD (S/P/Bld) [Vol rate/Area] 64 mL/min/{1.73_m2} >60 [facility] deOrdered By: Alber Dunn on 03-11-2025 Glucose [Mass/Vol] 412 mg/dL High 74-106 [facility] Hematocrit Auto (Bld) [Volum e fraction]Ordered By: Day Bird on 03-11-2025 Hematocrit (Bld) [Volume fraction] 23.7 % Low 40-54 [facility] Hemoglobin measurementOrdere d By: Day Bird on 03-11-2025 Hemoglobin (Bld) [Mass/Vol] 8.0 g/dL Low 13.0-16.5 [facility] Immature granulocytes/100 WB C Auto (Bld)Ordered By: Day Bird on 03-11-2025 Immature granulocytes/100 WBC (Bld) 0.500 % 0.0-0.9 [facility] MCV (mean corpuscular volume ) determinationOrdered By: Day Bird on 03-11-2025 MCV (RBC) [Entitic vol] 92.6 fL 80-94 [facility] Mean corpuscular hemoglobin (MCH) determinationOrdered By: Day Bird on 03-11-2025 MCH (RBC) [Entitic mass] 31.3 pg 27.0-32.0 [facility] Monocyte percentageOrdered B y: Day Bird on 03-11-2025 Monocytes/100 WBC (Bld) 10.9 % High 0-10 [facility] Neutrophil percentageOrdered By: Day Bird on 03-11-2025 Neutrophils/100 WBC (Bld) 70.2 % High 47-70 [facility] Platelet countOrdered By: Sarah Bird on 03-11-2025 Platelets (Bld) [#/Vol] 94 10*3/uL Low 150-450 [facility] Platelet estimateOrdered By: Day Bird on 03-11-2025 Platelets LM Ql (Bld) MOD DEC ADEQ [facility] Potassium measurement (mass/ volume)Ordered By: Day Bird on 03-11-2025 Potassium (Unsp spec) [Mass/Vol] 2.8 mmol/L Low 3.3-5.1 [facility] RBC Auto (Bld) [#/Vol]Ordere d By: Day Bird on 03-11-2025 RBC (Bld) [#/Vol] 2.56 10*6/uL Low 4.6-6.2 [facility] Serum creatinine measurement (mass/volume)Ordered By: Day Bird on 03-11-2025 Creatinine [Mass/Vol] 1.30 mg/dL High 0.70-1.20 [facility] Serum glucose measurement (m ass/volume)Ordered By: Dayestuardo Bird on 03-11-2025 Glucose [Mass/Vol] 495 mg/dL High 70-99 [facility] Serum or plasma calcium roosevelt urement (mass/volume)Ordered By: Day Bird on 03-11-2025 Calcium [Mass/Vol] 8.0 mg/dL 7.6-11.0 [facility] Serum or plasma urea nitroge n measurement (mass/volume)Ordered By: Day Bird on 03-11-2025 Urea nitrogen [Mass/Vol] 16 mg/dL 4-19 [facility] Sodium levelOrdered By: Day Bird on 03-11-2025 Sodium [Moles/Vol] 128 mmol/L Low 133-145 [facility] White blood cell (WBC) count Ordered By: Day Bird on 03-11-2025 WBC (Bld) [#/Vol] 8.2 10*3/uL 4.4-11.0 [facility] MR/PAT.ANEon 03-10-2025 MR/PAT.ANE Normal [facility] Surgery Visit Reporton 03-10 Surgery Visit Report Normal [facility] Paracentesis with USon 03-04 Paracentesis with US Normal [facility] Culture, Anaerobic Any Sourc iliana 03-03-2025 CUAN No growth in 5 days. Normal [facility] Comment on above: Performed By: #### M 100.2900, M100.2000, L200.0200, L400.0001, M100.4001 ####[facility] [address] [place], [address] Body Fluid Cell Count+Diffon 02-28-2025 PATH COMM/BF Reviewed Normal [facility] Comment on above: Order Comment: The r eference range and other method performancespecifications have not been established for this bodyfluid. The test must be integrated into the clinicalcontext for interpretation. Result Comment: NO M ALIGNANT CELLS IDENTIFIED.Pamella Umana MD 02/28/2025 AMENDED REPORT 02/28/25 1556 PATH COMM/BF previously reported as: May follow Performed By: #### M 100.2900, M100.2000, L200.0200, L400.0001, M100.4001 ####[facility] [address] [place], [address] Absolute lymphocyte countOrd ered By: Rick Carlin on 02-27-2025 Lymphocytes Auto (Unsp spec) [#/Vol] 1.53 10*3/uL 0.83-4.51 [facility] Anion gap in Serum or Plasma Ordered By: Rick Carlin on 02-27-2025 Anion gap [Moles/Vol] 10 mmol/L 5-15 [facility] Automated lymphocyte count a s percentage of total leukocytesOrdered By: Rick Carlin on 02-27-2025 Lymphocytes/100 WBC Auto (Unsp spec) 18.6 % Low 19-41 [facility] BUN/creatinine ratioOrdered By: Rick Carlin on 02-27-2025 Urea nitrogen/Creatinine [Mass ratio] 13.0 mg/mg 10-20 [facility] Basophil percentageOrdered B y: Rick Carlin on 02-27-2025 Basophils/100 WBC (Bld) 0.9 % 0-1 [facility] Bedside Glucoseon 02-27-2025 FINGERSTICK GLU 368 mg/dL High 74-106 [facility] Comment on above: Result Comment: BRISA GEMENT OF PATIENT CARE PER NURSING PROTOCOL Performed By: #### L 501.080 ####[facility] [address] [place], [address] FINGERSTICK GLU 265 mg/dL High 74-106 [facility] Comment on above: Result Comment: BRISA GEMENT OF PATIENT CARE PER NURSING PROTOCOL Performed By: #### L 501.080 ####[facility] [address] [facility] [place], [address] Bilirubin, totalOrdered By: Rick Carlin on 02-27-2025 Bilirubin [Mass/Vol] 4.15 mg/dL High 0.00-1.30 [facility] Blood manual differential co mment interpretation (narrative result)Ordered By: Rick Carlin on 02-27-2025 Manual differential comment Marco Antonio (Bld) [Interp] SCANNED [facility] Blood polychromasia detectio n by light microscopyOrdered By: Rick Carlin on 02-27-2025 Polychromasia LM Ql (Bld) 1+ [facility] CBC W/Diff, Automatedon 02-02 Anisocytosis Ql (Bld) 2+ Normal [facility] Comment on above: Performed By: #### L 500.4050, L100.0100 ####[facility] [address] [place], [address] OVALOCYTE 1+ Normal [facility] Comment on above: Performed By: #### L 500.4050, L100.0100 ####[facility] [address] [place], [address] PLT EST SLT DEC Normal ADEQ [facility] Comment on above: Performed By: #### L 500.4050, L100.0100 ####[facility] [address] [place], [address] POLYCHROMASIA 1+ Normal [facility] Comment on above: Performed By: #### L 500.4050, L100.0100 ####[facility] [address] [place], [address] SMEAR COMMENT SCANNED Normal [facility] Comment on above: Performed By: #### L 500.4050, L100.0100 ####[facility] [address] [place], [address] Carbon dioxide, total [Moles /volume] in Central venous bloodOrdered By: Rick Carlin on 02-27-2025 CO2 [Moles/Vol] 20.8 mmol/L Low 21.0-32.0 [facility] Chloride assayOrdered By: Lissette Carlin on 02-27-2025 Chloride [Moles/Vol] 101 mmol/L 98-108 [facility] Comprehensive Metabolic Prof ilon 02-27-2025 Albumin [Mass/Vol] 2.2 g/dL Low 3.5-5.0 [facility] Comment on above: Performed By: #### L 500.4050, L100.0100 ####[facility] [address] [place], [address] Albumin/Globulin [Mass ratio] 0.7 {ratio} Low 0.9-2.4 [facility] Comment on above: Performed By: #### L 500.4050, L100.0100 ####[facility] [address] [place], [address] ALK PHOS 244 U/L High 40-129 [facility] Comment on above: Performed By: #### L 500.4050, L100.0100 ####[facility] [address] [place], [address] ALT [Catalytic activity/Vol] 43 U/L Normal <=46 [facility] Comment on above: Performed By: #### L 500.4050, L100.0100 ####[facility] [address] [place], [address] AST [Catalytic activity/Vol] 65 U/L High <=37 [facility] Comment on above: Performed By: #### L 500.4050, L100.0100 ####[facility] [address] [place], [address] Bilirubin [Mass/Vol] 4.15 mg/dL High 0.00-1.30 [facility] Comment on above: Performed By: #### L 500.4050, L100.0100 ####[facility] [address] [place], [address] BUN/CRE 13.0 RATIO Normal 10-20 [facility] Comment on above: Performed By: #### L 500.4050, L100.0100 ####[facility] [address] [place], [address] Calcium [Mass/Vol] 8.0 mg/dL Normal 7.6-11.0 [facility] Comment on above: Performed By: #### L 500.4050, L100.0100 ####[facility] [address] [place], [address] Chloride [Moles/Vol] 101 mmol/L Normal 98-108 [facility] Comment on above: Performed By: #### L 500.4050, L100.0100 ####[facility] [address] [place], [address] CO2 [Moles/Vol] 20.8 mmol/L Low 21.0-32.0 [facility] Comment on above: Performed By: #### L 500.4050, L100.0100 ####[facility] [address] [place], [address] Creatinine [Mass/Vol] 1.14 mg/dL Normal 0.70-1.20 [facility] Comment on above: Performed By: #### L 500.4050, L100.0100 ####[facility] [address] [place], [address] ECRCL 78.45 ml/min Normal 50-250 [facility] Comment on above: Performed By: #### L 500.4050, L100.0100 ####[facility] [address] [place], [address] GAP 10 Normal 5-15 [facility] Comment on above: Performed By: #### L 500.4050, L100.0100 ####[facility] [address] [place], [address] GFR/1.73 sq M.predicted among non-blacks MDRD (S/P/Bld) [Vol rate/Area] 75 mL/min/{1.73_m2} Normal >60 [facility] Comment on above: Result Comment: mL/m in/1.73m2 CKD-EPI Creatinine Equation (2020) Performed By: #### L 500.4050, L100.0100 ####[facility] [address] [place], [address] Globulin (S) [Mass/Vol] 3.3 g/dL Normal 2.2-4.2 [facility] Comment on above: Performed By: #### L 500.4050, L100.0100 ####[facility] [address] [place], [address] Glucose [Mass/Vol] 272 mg/dL High 70-99 [facility] Comment on above: Performed By: #### L 500.4050, L100.0100 ####[facility] [address] [place], [address] Potassium [Moles/Vol] 3.2 mmol/L Low 3.3-5.1 [facility] Comment on above: Performed By: #### L 500.4050, L100.0100 ####[facility] [address] [place], [address] Sodium [Moles/Vol] 131 mmol/L Low 133-145 [facility] Comment on above: Performed By: #### L 500.4050, L100.0100 ####[facility] [address] [place], [address] T PROT 5.5 g/dL Low 5.9-8.4 [facility] Comment on above: Performed By: #### L 500.4050, L100.0100 ####[facility] [address] [place], [address] Urea nitrogen [Mass/Vol] 15 mg/dL Normal 4-19 [facility] Comment on above: Performed By: #### L 500.4050, L100.0100 ####[facility] [address] [place], [address] Discharge Instructionon 02-02 Discharge Instruction Normal [facility] Eosinophil percentageOrdered By: Rick Carlin on 02-27-2025 Eosinophils/100 WBC (Bld) 6.2 % High 0-5 [facility] Erythrocyte distribution wid th ratioOrdered By: Rick Carlin on 02-27-2025 Erythrocyte distribution width (RBC) [Ratio] 21.7 % High 11.6-14.6 [facility] Erythrocyte distribution wid th standard deviationOrdered By: Rick Carlin on 02-27-2025 Erythrocyte distribution width (RBC) [Ratio] 68.2 fl High 35.1-43.9 [facility] Glomerular filtration rate ( GFR) estimation/1.73 sq m using serum, plasma, or whole bOrdered By: Rick Carlin on 02-27-2025 GFR/1.73 sq M.predicted among non-blacks MDRD (S/P/Bld) [Vol rate/Area] 75 mL/min/{1.73_m2} >60 [facility] deOrdered By: Rick Carlin on 02-27-2025 Glucose [Mass/Vol] 368 mg/dL High 74-106 [facility] Hematocrit Auto (Bld) [Volum e fraction]Ordered By: Rick Carlin on 02-27-2025 Hematocrit (Bld) [Volume fraction] 24.0 % Low 40-54 [facility] Hemoglobin measurementOrdere d By: Rick Cariln on 02-27-2025 Hemoglobin (Bld) [Mass/Vol] 8.2 g/dL Low 13.0-16.5 [facility] Immature granulocytes/100 WB C Auto (Bld)Ordered By: Rick Carlin on 02-27-2025 Immature granulocytes/100 WBC (Bld) 0.400 % 0.0-0.9 [facility] MCV (mean corpuscular volume ) determinationOrdered By: Rick Carlin on 02-27-2025 MCV (RBC) [Entitic vol] 89.6 fL 80-94 [facility] Mean corpuscular hemoglobin (MCH) determinationOrdered By: Rick Carlin on 02-27-2025 MCH (RBC) [Entitic mass] 30.6 pg 27.0-32.0 [facility] Monocyte percentageOrdered B y: Rick Carlin on 02-27-2025 Monocytes/100 WBC (Bld) 12.5 % High 0-10 [facility] Neutrophil percentageOrdered By: Rick Carlin on 02-27-2025 Neutrophils/100 WBC (Bld) 61.4 % 47-70 [facility] No Panel InformationOrdered By: Rick Carlin on 02-27-2025 2+ [facility] 65 U/L High <38 [facility] Ovalocyte detectionOrdered B y: Rick Carlin on 02-27-2025 Ovalocytes LM Ql (Bld) 1+ [facility] Platelet countOrdered By: Lissette Carlin on 02-27-2025 Platelets (Bld) [#/Vol] 133 10*3/uL Low 150-450 [facility] Platelet estimateOrdered By: Rick Carlin on 02-27-2025 Platelets LM Ql (Bld) SLT DEC ADEQ [facility] Potassium measurement (mass/ volume)Ordered By: Rick Carlin on 02-27-2025 Potassium (Unsp spec) [Mass/Vol] 3.2 mmol/L Low 3.3-5.1 [facility] RBC Auto (Bld) [#/Vol]Ordere d By: Rick Carlin on 02-27-2025 RBC (Bld) [#/Vol] 2.68 10*6/uL Low 4.6-6.2 [facility] Serum creatinine measurement (mass/volume)Ordered By: Rick Carlin on 02-27-2025 Creatinine [Mass/Vol] 1.14 mg/dL 0.70-1.20 [facility] Serum globulin measurementOr dered By: Rick Carlin on 02-27-2025 Globulin (S) [Mass/Vol] 3.3 g/dL 2.2-4.2 [facility] Serum glucose measurement (m ass/volume)Ordered By: Rick Carlin on 02-27-2025 Glucose [Mass/Vol] 272 mg/dL High 70-99 [facility] Serum or plasma alanine thomas otransferase (ALT) measurementOrdered By: Rick Carlin on 02-27-2025 ALT [Catalytic activity/Vol] 43 U/L <47 [facility] Serum or plasma albumin roosevelt urement (mass/volume)Ordered By: Rick Carlin on 02-27-2025 Albumin [Mass/Vol] 2.2 g/dL Low 3.5-5.0 [facility] Serum or plasma albumin/glob ulin mass ratioOrdered By: Rick Carlin on 02-27-2025 Albumin/Globulin [Mass ratio] 0.7 {ratio} Low 0.9-2.4 [facility] Serum or plasma alkaline kendrick sphatase measurementOrdered By: Rick Carlin on 02-27-2025 ALP [Catalytic activity/Vol] 244 U/L High 40-129 [facility] Serum or plasma calcium roosevelt urement (mass/volume)Ordered By: Rick Carlin on 02-27-2025 Calcium [Mass/Vol] 8.0 mg/dL 7.6-11.0 [facility] Serum or plasma urea nitroge n measurement (mass/volume)Ordered By: Rick Carlin on 02-27-2025 Urea nitrogen [Mass/Vol] 15 mg/dL 4-19 [facility] Sodium levelOrdered By: Rick Carlin on 02-27-2025 Sodium [Moles/Vol] 131 mmol/L Low 133-145 [facility] Total proteinOrdered By: Meredith Carlin on 02-27-2025 Protein [Mass/Vol] 5.5 g/dL Low 5.9-8.4 [facility] White blood cell (WBC) count Ordered By: Rick Carlin on 02-27-2025 WBC (Bld) [#/Vol] 8.2 10*3/uL 4.4-11.0 [facility] Bedside Glucoseon 02-26-2025 FINGERSTICK GLU 323 mg/dL High 74-106 [facility] Comment on above: Result Comment: BRISA MOROCHO OF PATIENT CARE PER NURSING PROTOCOL Performed By: #### L 501.080 ####[facility] [address] [place], [address] FINGERSTICK GLU 359 mg/dL High 74-106 [facility] Comment on above: Result Comment: BRISA GEMENT OF PATIENT CARE PER NURSING PROTOCOL Performed By: #### L 501.080 ####[facility] [address] [place], [address] FINGERSTICK GLU 344 mg/dL High 74-106 [facility] Comment on above: Result Comment: BRISA GEMENT OF PATIENT CARE PER NURSING PROTOCOL Performed By: #### L 501.080 ####[facility] [address] [place], [address] FINGERSTICK GLU 267 mg/dL High 74-106 [facility] Comment on above: Result Comment: BRISA GEMENT OF PATIENT CARE PER NURSING PROTOCOL Performed By: #### L 501.080 ####[facility] [address] [place], [address] Body Fluid Culton 02-26-2025 BFC Culture exhibits no growth. Normal [facility] Comment on above: Performed By: #### M 100.2900, M100.2000, L200.0200, L400.0001, M100.4001 ####[facility] [address] [place], [address] CBC W/Diff, Automatedon 07- Anisocytosis Ql (Bld) 2+ Normal [facility] Comment on above: Performed By: #### L 100.0100, L500.4050 ####[facility] [address] [place], [address] SMEAR COMMENT SCANNED Normal [facility] Comment on above: Performed By: #### L 100.0100, L500.4050 ####[facility] [address] [place], [address] Comprehensive Metabolic Prof ilon 02-26-2025 Albumin [Mass/Vol] 2.4 g/dL Low 3.5-5.0 [facility] Comment on above: Performed By: #### L 100.0100, L500.4050 ####[facility] [address] [place], [address] Albumin/Globulin [Mass ratio] 0.7 {ratio} Low 0.9-2.4 [facility] Comment on above: Performed By: #### L 100.0100, L500.4050 ####[facility] [address] [place], [address] ALK PHOS 258 U/L High 40-129 [facility] Comment on above: Performed By: #### L 100.0100, L500.4050 ####[facility] [address] [place], [address] ALT [Catalytic activity/Vol] 50 U/L High <=46 [facility] Comment on above: Performed By: #### L 100.0100, L500.4050 ####[facility] [address] [place], [address] AST [Catalytic activity/Vol] 78 U/L High <=37 [facility] Comment on above: Performed By: #### L 100.0100, L500.4050 ####[facility] [address] [place], [address] Bilirubin [Mass/Vol] 5.33 mg/dL High 0.00-1.30 [facility] Comment on above: Performed By: #### L 100.0100, L500.4050 ####[facility] [address] [place], [address] BUN/CRE 12.9 RATIO Normal 10-20 [facility] Comment on above: Performed By: #### L 100.0100, L500.4050 ####[facility] [address] [place], [address] Calcium [Mass/Vol] 8.3 mg/dL Normal 7.6-11.0 [facility] Comment on above: Performed By: #### L 100.0100, L500.4050 ####[facility] [address] [place], [address] Chloride [Moles/Vol] 102 mmol/L Normal 98-108 [facility] Comment on above: Performed By: #### L 100.0100, L500.4050 ####[facility] [address] [place], [address] CO2 [Moles/Vol] 19.6 mmol/L Low 21.0-32.0 [facility] Comment on above: Performed By: #### L 100.0100, L500.4050 ####[facility] [address] [place], [address] Creatinine [Mass/Vol] 1.03 mg/dL Normal 0.70-1.20 [facility] Comment on above: Result Comment: Icte daquan present, Results may be affected. Performed By: #### L 100.0100, L500.4050 ####[facility] [address] [place], [address] ECRCL 86.83 ml/min Normal 50-250 [facility] Comment on above: Performed By: #### L 100.0100, L500.4050 ####[facility] [address] [place], [address] GAP 12 Normal 5-15 [facility] Comment on above: Performed By: #### L 100.0100, L500.4050 ####[facility] [address] [place], [address] GFR/1.73 sq M.predicted among non-blacks MDRD (S/P/Bld) [Vol rate/Area] 84 mL/min/{1.73_m2} Normal >60 [facility] Comment on above: Result Comment: mL/m in/1.73m2 CKD-EPI Creatinine Equation (2020) Performed By: #### L 100.0100, L500.4050 ####[facility] [address] [place], [address] Globulin (S) [Mass/Vol] 3.6 g/dL Normal 2.2-4.2 [facility] Comment on above: Performed By: #### L 100.0100, L500.4050 ####[facility] [address] [place], [address] Glucose [Mass/Vol] 269 mg/dL High 70-99 [facility] Comment on above: Performed By: #### L 100.0100, L500.4050 ####[facility] [address] [place], [address] Potassium [Moles/Vol] 3.0 mmol/L Low 3.3-5.1 [facility] Comment on above: Performed By: #### L 100.0100, L500.4050 ####[facility] [address] [place], [address] Sodium [Moles/Vol] 133 mmol/L Normal 133-145 [facility] Comment on above: Performed By: #### L 100.0100, L500.4050 ####[facility] [address] [place], [address] T PROT 6.0 g/dL Normal 5.9-8.4 [facility] Comment on above: Performed By: #### L 100.0100, L500.4050 ####[facility] [address] [place], [address] Urea nitrogen [Mass/Vol] 13 mg/dL Normal 4-19 [facility] Comment on above: Performed By: #### L 100.0100, L500.4050 ####[facility] [address] [place], [address] Gram Stainon 02-26-2025 GS Centrifuged Specimen ? Culture performed on centrifuged specimen Gram Stain No organisms seen Rare White Blood Cells Normal [facility] Comment on above: Performed By: #### M 100.2900, M100.2000, L200.0200, L400.0001, M100.4001 ####[facility] [address] [place], [address] Prothrombin Time w/INRon INR Coag (PPP) [Relative time] 2.1 {INR} Normal [facility] Comment on above: Order Comment: Comme nts: Add onto previous labs if possible Performed By: #### L 300.3900 ####[facility] [address] [place], [address] PT Coag (PPP) [Time] 23.7 s High 11.7-14.9 [facility] Comment on above: Order Comment: Comme nts: Add onto previous labs if possible Performed By: #### L 300.3900 ####[facility] [address] [place], [address] Prothrombin timeOrdered By: Kathie Powers on 02-26-2025 PT Coag (PPP) [Time] 23.7 s High 11.7-14.9 [facility] Ammoniaon 02-25-2025 Ammonia (P) [Moles/Vol] 127.0 umol/L High 16-60 [facility] Comment on above: Performed By: #### L 503.5510, L100.0100, L501.2450, L500.4050 ####[facility] [address] [place], [address] Anaerobic cultureOrdered By: Herberth Carlson on 02-25-2025 Bacteria identified Anaer cx Nom (Unsp spec) No growth in 5 days. [facility] Bedside Glucoseon 02-25-2025 FINGERSTICK GLU 271 mg/dL High 74-106 [facility] Comment on above: Result Comment: BRISA GEMENT OF PATIENT CARE PER NURSING PROTOCOL Performed By: #### L 501.080 ####[facility] [address] [place], [place], [address] FINGERSTICK GLU 192 mg/dL High 74-106 [facility] Comment on above: Result Comment: BRISA GEMENT OF PATIENT CARE PER NURSING PROTOCOL Performed By: #### L 501.080 ####[facility] [address] [place], [place], [address] Bilirubin Test strip Ql (U)O rdered By: Herberth Carlson on 02-25-2025 Bilirubin Ql (U) 3 mg/dL High Negative [facility] Body fluid appearance (nomin al result)Ordered By: Herberth Carlson on 02-25-2025 Appearance (Body fld) SL CLDY [facility] Body fluid color determinati onOrdered By: Herberth Carlson on 02-25-2025 Color (Body fld) YELLOW [facility] Body fluid cultureOrdered By : Herberth Carlson on 02-25-2025 Microbial culture, body fluid Culture exhibits no growth. [facility] Body fluid leukocytes count (number/volume)Ordered By: Herberth Carlson on 02-25-2025 WBC (Body fld) [#/Vol] 0.153 10*3/uL [facility] Body fluid lymphocytes/100 l eukocytesOrdered By: Herberth Carlson on 02-25-2025 Lymphocytes/100 WBC (Body fld) 6 % [facility] Body fluid macrophage countO rdered By: Herberth Carlson on 02-25-2025 Macrophages (Body fld) [#/Vol] 75 % [facility] Body fluid mesothelial cell percentageOrdered By: Herberth Carlson on 02-25-2025 Mesothelial cells/100 WBC (Body fld) 10 % [facility] Body fluid mononuclear cell percentageOrdered By: Herberth Carlson on 02-25-2025 Mononuclear cells/100 WBC (Body fld) 90.1 % [facility] Body fluid segmented neutrop hils count (number/volume)Ordered By: Herberth Carlson on 02-25-2025 Segmented neutrophils (Body fld) [#/Vol] 4 % [facility] Body fluid total cell countO rdered By: Herberth Carlson on 02-25-2025 Cells Counted Total (Body fld) [#] 0.207 10^3/ul [facility] CBC W/Diff, Automatedon - Anisocytosis Ql (Bld) 1+ Normal [facility] Comment on above: Performed By: #### L 503.5510, L100.0100, L501.2450, L500.4050 ####[facility] [address] [place], [address] Comprehensive Metabolic Prof ilon 02-25-2025 Albumin [Mass/Vol] 2.0 g/dL Low 3.5-5.0 [facility] Comment on above: Performed By: #### L 503.5510, L100.0100, L501.2450, L500.4050 ####[facility] [address] [place], [address] Albumin/Globulin [Mass ratio] 0.5 {ratio} Low 0.9-2.4 [facility] Comment on above: Performed By: #### L 503.5510, L100.0100, L501.2450, L500.4050 ####[facility] [address] [place], [address] ALK PHOS 249 U/L High 40-129 [facility] Comment on above: Performed By: #### L 503.5510, L100.0100, L501.2450, L500.4050 ####[facility] [address] [place], [address] ALT [Catalytic activity/Vol] 51 U/L High <=46 [facility] Comment on above: Result Comment: Hemo lysis present, Results??could be affected.?? Performed By: #### L 503.5510, L100.0100, L501.2450, L500.4050 ####[facility] [address] [place], [address] AST [Catalytic activity/Vol] 97 U/L High <=37 [facility] Comment on above: Result Comment: Hemo lysis present, Results??could be affected.?? Performed By: #### L 503.5510, L100.0100, L501.2450, L500.4050 ####[facility] [address] [place], [address] Bilirubin [Mass/Vol] 4.99 mg/dL High 0.00-1.30 [facility] Comment on above: Performed By: #### L 503.5510, L100.0100, L501.2450, L500.4050 ####[facility] [address] [place], [address] BUN/CRE 8.9 RATIO Low 10-20 [facility] Comment on above: Performed By: #### L 503.5510, L100.0100, L501.2450, L500.4050 ####[facility] [address] [place], [address] Calcium [Mass/Vol] 8.1 mg/dL Normal 7.6-11.0 [facility] Comment on above: Performed By: #### L 503.5510, L100.0100, L501.2450, L500.4050 ####[facility] [address] [place], [address] Chloride [Moles/Vol] 102 mmol/L Normal 98-108 [facility] Comment on above: Performed By: #### L 503.5510, L100.0100, L501.2450, L500.4050 ####[facility] [address] [place], [address] CO2 [Moles/Vol] 17.5 mmol/L Low 21.0-32.0 [facility] Comment on above: Performed By: #### L 503.5510, L100.0100, L501.2450, L500.4050 ####[facility] [address] [place], [address] Creatinine [Mass/Vol] 1.07 mg/dL Normal 0.70-1.20 [facility] Comment on above: Result Comment: Icte daquan present, Results may be affected. Performed By: #### L 503.5510, L100.0100, L501.2450, L500.4050 ####[facility] [address] [place], [address] ECRCL 86.96 ml/min Normal 50-250 [facility] Comment on above: Performed By: #### L 503.5510, L100.0100, L501.2450, L500.4050 ####[facility] [address] [place], [address] GAP 12 Normal 5-15 [facility] Comment on above: Performed By: #### L 503.5510, L100.0100, L501.2450, L500.4050 ####[facility] [address] [place], [address] GFR/1.73 sq M.predicted among non-blacks MDRD (S/P/Bld) [Vol rate/Area] 80 mL/min/{1.73_m2} Normal >60 [facility] Comment on above: Result Comment: mL/m in/1.73m2 CKD-EPI Creatinine Equation (2020) Performed By: #### L 503.5510, L100.0100, L501.2450, L500.4050 ####[facility] [address] [place], [address] Globulin (S) [Mass/Vol] 3.9 g/dL Normal 2.2-4.2 [facility] Comment on above: Performed By: #### L 503.5510, L100.0100, L501.2450, L500.4050 ####[facility] [address] [place], [address] Glucose [Mass/Vol] 225 mg/dL High 70-99 [facility] Comment on above: Performed By: #### L 503.5510, L100.0100, L501.2450, L500.4050 ####[facility] [address] [place], [address] Potassium [Moles/Vol] 3.7 mmol/L Normal 3.3-5.1 [facility] Comment on above: Result Comment: Hemo lysis present, Results??could be affected.?? Performed By: #### L 503.5510, L100.0100, L501.2450, L500.4050 ####[facility] [address] [place], [address] Sodium [Moles/Vol] 131 mmol/L Low 133-145 [facility] Comment on above: Performed By: #### L 503.5510, L100.0100, L501.2450, L500.4050 ####[facility] [address] [place], [address] T PROT 5.9 g/dL Normal 5.9-8.4 [facility] Comment on above: Performed By: #### L 503.5510, L100.0100, L501.2450, L500.4050 ####[facility] [address] [place], [address] Urea nitrogen [Mass/Vol] 10 mg/dL Normal 4-19 [facility] Comment on above: Performed By: #### L 503.5510, L100.0100, L501.2450, L500.4050 ####[facility] [address] [place], [address] Emergency Department Summary on 02-25-2025 Emergency Department Summary Normal [facility] Gram stainOrdered By: Lopez Carlson on 02-25-2025 Microscopic observation Gram stain Nom (Unsp spec) [facility] H AND P Exam - Hospitaliston 02-25-2025 H&P Exam - Hospitalist Normal [facility] Ketones Test strip Ql (U)Ord ered By: Herberth Carlson on 02-25-2025 Ketones Ql (U) 5 mg/dl High Negative [facility] Lipaseon 02-25-2025 Lipase [Catalytic activity/Vol] 64 U/L Normal 13-75 [facility] Comment on above: Result Comment: Siddhartha bhat note:LIPASE revised reference range effective 22.New Lipase methodology. Expected to produce lower valuesthan the previous assay method.NEW Reference Range: 13 - 75 U/L Performed By: #### L 503.5510, L100.0100, L501.2450, L500.4050 ####[facility] [address] [place], [address] MR/CON.PCM.GIon 02-25-2025 MR/CON.PCM.GI Normal [facility] Monocyte detectionOrdered By : Herberth Carlson on 02-25-2025 Monocytes/100 WBC (Bld) 5 % [facility] Mucus LM Ql (Urine sed)Order ed By: Herberth Carlson on 02-25-2025 Mucus Ql (Urine sed) 0 SEEN /hpf [facility] Nitrite Test strip Ql (U)Ord ered By: Herberth Carlson on 02-25-2025 Nitrite Ql (U) Negative Negative [facility] No Panel InformationOrdered By: Herberth Carlson on 02-25-2025 283 /mm3 [facility] SEE COMMENT [facility] Pathologist interpretation o f Body fluid testsOrdered By: Herberth Carlson on 02-25-2025 Pathologist interpretation (Body fld) [Interp] Reviewed [facility] Protein Test strip Ql (U)Ord ered By: Herberth Carlson on 02-25-2025 Protein Ql (U) 100 mg/dl High Negative [facility] Specimen source identificati on of body fluidOrdered By: Herberth Carlson on 02-25-2025 Specimen source Nom (Body fld) ASCITES FLUID [facility] Squamous epithelial cells de tection in urine sediment by light microscopyOrdered By: Herberth Carlson on 02-25-2025 Epithelial cells.squamous LM Ql (Urine sed) 0 SEEN /hpf 0-5 [facility] Urinalysis, Completeon 02-25 RBC > 100 SEEN Normal 0-5 [facility] Comment on above: Order Comment: COLOR OF URINE MAY AFFECT DIPSTICK RESULTS.CLEAN CATCH Result Comment: Micr oscopic field is filled. Other elements may beobscured. Performed By: #### M 100.2900, M100.2000, L200.0200, L400.0001, M100.4001 ####[facility] [address] [place], [address] WBC >100 SEEN Normal 0-5 [facility] Comment on above: Order Comment: COLOR OF URINE MAY AFFECT DIPSTICK RESULTS.CLEAN CATCH Result Comment: Micr oscopic field is filled. Other elements may beobscured. Performed By: #### M 100.2900, M100.1999, L200.0200, L400.0001, M100.4001 ####[facility] [address] [place], [address] YEAST 2+ /hpf Normal None Seen [facility] Comment on above: Order Comment: COLOR OF URINE MAY AFFECT DIPSTICK RESULTS.CLEAN CATCH Performed By: #### M 100.2900, M100.1999, L200.0200, L400.0001, M100.4001 ####[facility] [address] [place], [address] BACTERIA 0 SEEN Normal None Seen [facility] Comment on above: Order Comment: COLOR OF URINE MAY AFFECT DIPSTICK RESULTS.CLEAN CATCH Performed By: #### M 100.2900, M100.2000, L200.0200, L400.0001, M100.4001 ####[facility] [address] [place], [address] EPI,SQUAMOUS 0 SEEN Normal 0-5 [facility] Comment on above: Order Comment: COLOR OF URINE MAY AFFECT DIPSTICK RESULTS.CLEAN CATCH Performed By: #### M 100.2900, M100.2000, L200.0200, L400.0001, M100.4001 ####[facility] [address] [place], [address] Mucus Ql (Urine sed) 0 SEEN Normal [facility] Comment on above: Order Comment: COLOR OF URINE MAY AFFECT DIPSTICK RESULTS.CLEAN CATCH Performed By: #### M 100.2900, M100.2000, L200.0200, L400.0001, M100.4001 ####[facility] [address] [place], [address] Urine clarityOrdered By: Digna Carlson on 02-25-2025 Clarity (U) Cloudy Clear [facility] Urine color determinationOrd ered By: Herberth Carlson on 02-25-2025 Color (U) Red Yellow [facility] Urine glucose detectionOrder ed By: Herberth Carlson on 02-25-2025 Glucose Ql (U) 100 mg/dl High Normal [facility] Urine leukocyte esterase det ection by dipstickOrdered By: Herberth Carlson on 02-25-2025 Leukocyte esterase Test strip Ql (U) 500 /ul High Negative [facility] Urine pHOrdered By: Herberth Carlson on 02-25-2025 pH (U) 6.5 [pH] 5.0 - 8.0 [facility] Urine sediment bacteria coun t by microscopy (number/high power field)Ordered By: Herberth Carlson on 02-25-2025 Bacteria LM.HPF (Urine sed) [#/Area] 0 /[HPF] None Seen [facility] Urine sediment yeast count b y microscopy (number/high powered field)Ordered By: Herberth Carlson on 02-25-2025 Yeast LM.HPF (Urine sed) [#/Area] 2 /[HPF] None Seen [facility] Urine specific gravity measu rementOrdered By: Herberth Carlson on 02-25-2025 Specific gravity (U) [Rel density] 1.015 1.002-1.030 [facility] Urine urobilinogen measureme ntOrdered By: Herberth Carlson on 02-25-2025 Urobilinogen Ql (U) Normal mg/dl Normal [facility] Venous blood ammonia measure mentOrdered By: Herberth Carlson on 02-25-2025 Ammonia (P) [Moles/Vol] 127.0 umol/L High 16-60 [facility] White blood cell countOrdere d By: Herberth Carlson on 02-25-2025 White blood cell count >100 SEEN /hpf 0-5 [facility] Hepatitis Panel Acuteon 02-01 COMMENT Comment Normal . [facility] Comment on above: Result Comment: Not infected with HCV unless early or acute infection issuspected (which may be delayed in an immunocompromisedindividual), or other evidence exists to indicate HCVinfection.Performed at: [facility] [id number] Director: Buck Ivy PhD, Phone: [phone] Performed By: #### L 100.0100, L500.4050, L3000.0375, L503.5510 ####[facility] [address] [place], [address] HEP B CORE,IgM Negative Normal Negative [facility] Comment on above: Performed By: #### L 100.0100, L500.4050, L3000.0375, L503.5510 ####[facility] [address] [place], [place], [address] HEP B SURF AG Negative Normal Negative [facility] Comment on above: Performed By: #### L 100.0100, L500.4050, L3000.0375, L503.5510 ####[facility] [address] [place], [place], [address] HEP C VIRUS AB Non-Reactive Normal Non Reactive [facility] Comment on above: Performed By: #### L 100.0100, L500.4050, L3000.0375, L503.5510 ####[facility] [address] [place], [address] HEPATITIS A-IgM Negative Normal Negative [facility] Comment on above: Result Comment: A ne gative anti-HAV IgM result suggests no recent orcurrent HAV infection. Performed By: #### L 100.0100, L500.4050, L3000.0375, L503.5510 ####[facility] [address] [place], [address] Anion gap in Serum or Plasma Ordered By: Jae Ash on 02-17-2025 Anion gap [Moles/Vol] 10 mmol/L 5-15 [facility] BUN/creatinine ratioOrdered By: Jae Ash on 02-17-2025 Urea nitrogen/Creatinine [Mass ratio] 9.7 mg/mg Low 10-20 [facility] Bedside Glucoseon 02-17-2025 FINGERSTICK GLU 194 mg/dL High 74-106 [facility] Comment on above: Result Comment: BRISA MOROCHO OF PATIENT CARE PER NURSING PROTOCOL Performed By: #### L 501.080 ####[facility] [address] [place], [address] Bilirubin, totalOrdered By: Jae Ash on 02-17-2025 Bilirubin [Mass/Vol] 6.79 mg/dL High 0.00-1.30 [facility] Blood manual differential co mment interpretation (narrative result)Ordered By: Jae Ash on 02-17-2025 Manual differential comment Marco Antonio (Bld) [Interp] SCANNED [facility] CBC-Complete Blood Cnt No Di ffon 02-17-2025 Erythrocyte distribution width (RBC) [Ratio] 19.0 % High 11.6-14.6 [facility] Comment on above: Performed By: #### L 100.4500, L300.3900, L100.0500, L500.4050 ####[facility] [address] [place], [address] Hematocrit (Bld) [Volume fraction] 21.9 % Low 40-54 [facility] Comment on above: Performed By: #### L 100.4500, L300.3900, L100.0500, L500.4050 ####[facility] [address] [place], [address] Hemoglobin (Bld) [Mass/Vol] 7.7 g/dL Low 13.0-16.5 [facility] Comment on above: Performed By: #### L 100.4500, L300.3900, L100.0500, L500.4050 ####[facility] [address] [place], [address] MCH (RBC) [Entitic mass] 30.0 pg Normal 27.0-32.0 [facility] Comment on above: Performed By: #### L 100.4500, L300.3900, L100.0500, L500.4050 ####[facility] [address] [place], [address] MCHC (RBC) [Mass/Vol] 35.2 g/dL Normal 32-36 [facility] Comment on above: Performed By: #### L 100.4500, L300.3900, L100.0500, L500.4050 ####[facility] [address] [place], [address] MCV (RBC) [Entitic vol] 85.2 fL Normal 80-94 [facility] Comment on above: Performed By: #### L 100.4500, L300.3900, L100.0500, L500.4050 ####[facility] [address] [place], [address] Platelet mean volume (Bld) [Entitic vol] 11.7 fL Normal 6.2-12.0 [facility] Comment on above: Performed By: #### L 100.4500, L300.3900, L100.0500, L500.4050 ####[facility] [address] [place], [address] Platelets (Bld) [#/Vol] 90 10*3/uL Low 150-450 [facility] Comment on above: Performed By: #### L 100.4500, L300.3900, L100.0500, L500.4050 ####[facility] [address] [place], [address] RBC (Bld) [#/Vol] 2.57 10*6/uL Low 4.6-6.2 [facility] Comment on above: Performed By: #### L 100.4500, L300.3900, L100.0500, L500.4050 ####[facility] [address] [place], [address] RDW SD 51.1 fl High 35.1-43.9 [facility] Comment on above: Performed By: #### L 100.4500, L300.3900, L100.0500, L500.4050 ####[facility] [address] [place], [address] WBC (Bld) [#/Vol] 8.5 10*3/uL Normal 4.4-11.0 [facility] Comment on above: Performed By: #### L 100.4500, L300.3900, L100.0500, L500.4050 ####[facility] [address] [place], [address] Carbon dioxide, total [Moles /volume] in Central venous bloodOrdered By: Jae Ash on 02-17-2025 CO2 [Moles/Vol] 22.1 mmol/L 21.0-32.0 [facility] Chloride assayOrdered By: Sky Ash on 02-17-2025 Chloride [Moles/Vol] 100 mmol/L 98-108 [facility] Comprehensive Metabolic Prof ilon 02-17-2025 Albumin [Mass/Vol] 2.1 g/dL Low 3.5-5.0 [facility] Comment on above: Performed By: #### L 100.4500, L300.3900, L100.0500, L500.4050 ####[facility] [address] [place], [address] Albumin/Globulin [Mass ratio] 0.7 {ratio} Low 0.9-2.4 [facility] Comment on above: Performed By: #### L 100.4500, L300.3900, L100.0500, L500.4050 ####[facility] [address] [place], [address] ALK PHOS 278 U/L High 40-129 [facility] Comment on above: Performed By: #### L 100.4500, L300.3900, L100.0500, L500.4050 ####[facility] [address] [place], [address] ALT [Catalytic activity/Vol] 46 U/L Normal <=46 [facility] Comment on above: Performed By: #### L 100.4500, L300.3900, L100.0500, L500.4050 ####[facility] [address] [place], [address] AST [Catalytic activity/Vol] 99 U/L High <=37 [facility] Comment on above: Result Comment: Hemo lysis present, Results??could be affected.?? Performed By: #### L 100.4500, L300.3900, L100.0500, L500.4050 ####[facility] [address] [place], [address] Bilirubin [Mass/Vol] 6.79 mg/dL High 0.00-1.30 [facility] Comment on above: Performed By: #### L 100.4500, L300.3900, L100.0500, L500.4050 ####[facility] [address] [place], [address] BUN/CRE 9.7 RATIO Low 10-20 [facility] Comment on above: Performed By: #### L 100.4500, L300.3900, L100.0500, L500.4050 ####[facility] [address] [place], [address] Calcium [Mass/Vol] 7.3 mg/dL Low 7.6-11.0 [facility] Comment on above: Performed By: #### L 100.4500, L300.3900, L100.0500, L500.4050 ####[facility] [address] [place], [address] Chloride [Moles/Vol] 100 mmol/L Normal 98-108 [facility] Comment on above: Performed By: #### L 100.4500, L300.3900, L100.0500, L500.4050 ####[facility] [address] [place], [address] CO2 [Moles/Vol] 22.1 mmol/L Normal 21.0-32.0 [facility] Comment on above: Performed By: #### L 100.4500, L300.3900, L100.0500, L500.4050 ####[facility] [address] [place], [address] Creatinine [Mass/Vol] 1.16 mg/dL Normal 0.70-1.20 [facility] Comment on above: Result Comment: Icte daquan present, Results may be affected. Performed By: #### L 100.4500, L300.3900, L100.0500, L500.4050 ####[facility] [address] [place], [address] ECRCL 79.19 ml/min Normal 50-250 [facility] Comment on above: Performed By: #### L 100.4500, L300.3900, L100.0500, L500.4050 ####[facility] [address] [place], [address] GAP 10 Normal 5-15 [facility] Comment on above: Performed By: #### L 100.4500, L300.3900, L100.0500, L500.4050 ####[facility] [address] [place], [address] GFR/1.73 sq M.predicted among non-blacks MDRD (S/P/Bld) [Vol rate/Area] 73 mL/min/{1.73_m2} Normal >60 [facility] Comment on above: Result Comment: mL/m in/1.73m2 CKD-EPI Creatinine Equation (2020) Performed By: #### L 100.4500, L300.3900, L100.0500, L500.4050 ####[facility] [address] [place], [address] Globulin (S) [Mass/Vol] 3.2 g/dL Normal 2.2-4.2 [facility] Comment on above: Performed By: #### L 100.4500, L300.3900, L100.0500, L500.4050 ####[facility] [address] [place], [address] Glucose [Mass/Vol] 246 mg/dL High 70-99 [facility] Comment on above: Performed By: #### L 100.4500, L300.3900, L100.0500, L500.4050 ####[facility] [address] [place], [address] Potassium [Moles/Vol] 3.6 mmol/L Normal 3.3-5.1 [facility] Comment on above: Result Comment: Hemo lysis present, Results??could be affected.?? Performed By: #### L 100.4500, L300.3900, L100.0500, L500.4050 ####[facility] [address] [place], [address] Sodium [Moles/Vol] 132 mmol/L Low 133-145 [facility] Comment on above: Performed By: #### L 100.4500, L300.3900, L100.0500, L500.4050 ####[facility] [address] [place], [address] T PROT 5.3 g/dL Low 5.9-8.4 [facility] Comment on above: Performed By: #### L 100.4500, L300.3900, L100.0500, L500.4050 ####[facility] [address] [place], [address] Urea nitrogen [Mass/Vol] 11 mg/dL Normal 4-19 [facility] Comment on above: Performed By: #### L 100.4500, L300.3900, L100.0500, L500.4050 ####[facility] [address] [place], [address] Differential Commenton 02-17 SMEAR COMMENT SCANNED Normal [facility] Comment on above: Result Comment: MODE RATE THROMBOCYTOPENIA NOTED Performed By: #### L 100.4500, L300.3900, L100.0500, L500.4050 ####[facility] [address] [place], [address] Discharge Instructionon 02-01 Discharge Instruction Normal [facility] Erythrocyte distribution wid th ratioOrdered By: Jae Ash on 02-17-2025 Erythrocyte distribution width (RBC) [Ratio] 19.0 % High 11.6-14.6 [facility] Erythrocyte distribution wid th standard deviationOrdered By: Jae Ash on 02-17-2025 Erythrocyte distribution width (RBC) [Ratio] 51.1 fl High 35.1-43.9 [facility] Glomerular filtration rate ( GFR) estimation/1.73 sq m using serum, plasma, or whole bOrdered By: Jae Ash on 02-17-2025 GFR/1.73 sq M.predicted among non-blacks MDRD (S/P/Bld) [Vol rate/Area] 73 mL/min/{1.73_m2} >60 [facility] Gl[facility] at [facility] deOrdered By: Anurag Irene on 02-17-2025 Glucose [Mass/Vol] 194 mg/dL High 74-106 [facility] Hematocrit Auto (Bld) [Volum e fraction]Ordered By: Jae Ash on 02-17-2025 Hematocrit (Bld) [Volume fraction] 21.9 % Low 40-54 [facility] Hemoglobin measurementOrdere d By: Jae Ash on 02-17-2025 Hemoglobin (Bld) [Mass/Vol] 7.7 g/dL Low 13.0-16.5 [facility] MCV (mean corpuscular volume ) determinationOrdered By: Jae Ash on 02-17-2025 MCV (RBC) [Entitic vol] 85.2 fL 80-94 [facility] MR/CON.PCM.GIon 02-17-2025 MR/CON.PCM.GI Normal [facility] Mean corpuscular hemoglobin (MCH) determinationOrdered By: Jae Ash on 02-17-2025 MCH (RBC) [Entitic mass] 30.0 pg 27.0-32.0 [facility] No Panel InformationOrdered By: Jae Ash on 02-17-2025 99 U/L High <38 [facility] Platelet countOrdered By: Sky Ash on 02-17-2025 Platelets (Bld) [#/Vol] 90 10*3/uL Low 150-450 [facility] Potassium measurement (mass/ volume)Ordered By: Jae Ash on 02-17-2025 Potassium (Unsp spec) [Mass/Vol] 3.6 mmol/L 3.3-5.1 [facility] Prothrombin Time w/INRon INR Coag (PPP) [Relative time] 2.0 {INR} Normal [facility] Comment on above: Performed By: #### L 100.4500, L300.3900, L100.0500, L500.4050 ####[facility] [address] [place], [address] PT Coag (PPP) [Time] 22.8 s High 11.7-14.9 [facility] Comment on above: Performed By: #### L 100.4500, L300.3900, L100.0500, L500.4050 ####[facility] [address] [place], [address] Prothrombin timeOrdered By: Jae Ash on 02-17-2025 PT Coag (PPP) [Time] 22.8 s High 11.7-14.9 [facility] RBC Auto (Bld) [#/Vol]Ordere d By: Jae Ash on 02-17-2025 RBC (Bld) [#/Vol] 2.57 10*6/uL Low 4.6-6.2 [facility] Serum creatinine measurement (mass/volume)Ordered By: Jae Ash on 02-17-2025 Creatinine [Mass/Vol] 1.16 mg/dL 0.70-1.20 [facility] Serum globulin measurementOr dered By: Jae Ash on 02-17-2025 Globulin (S) [Mass/Vol] 3.2 g/dL 2.2-4.2 [facility] Serum glucose measurement (m ass/volume)Ordered By: Jae Ash on 02-17-2025 Glucose [Mass/Vol] 246 mg/dL High 70-99 [facility] Serum or plasma alanine thomas otransferase (ALT) measurementOrdered By: Jea Ash on 02-17-2025 ALT [Catalytic activity/Vol] 46 U/L <47 [facility] Serum or plasma albumin roosevelt urement (mass/volume)Ordered By: Jae Ash on 02-17-2025 Albumin [Mass/Vol] 2.1 g/dL Low 3.5-5.0 [facility] Serum or plasma albumin/glob ulin mass ratioOrdered By: Jae Ash on 02-17-2025 Albumin/Globulin [Mass ratio] 0.7 {ratio} Low 0.9-2.4 [facility] Serum or plasma alkaline kendrick sphatase measurementOrdered By: Jae Ash on 02-17-2025 ALP [Catalytic activity/Vol] 278 U/L High 40-129 [facility] Serum or plasma calcium roosevelt urement (mass/volume)Ordered By: Jae Ash on 02-17-2025 Calcium [Mass/Vol] 7.3 mg/dL Low 7.6-11.0 [facility] Serum or plasma urea nitroge n measurement (mass/volume)Ordered By: Jae Ash on 02-17-2025 Urea nitrogen [Mass/Vol] 11 mg/dL 4-19 [facility] Sodium levelOrdered By: Pasha Ash on 02-17-2025 Sodium [Moles/Vol] 132 mmol/L Low 133-145 [facility] Total proteinOrdered By: Diane Ash on 02-17-2025 Protein [Mass/Vol] 5.3 g/dL Low 5.9-8.4 [facility] White blood cell (WBC) count Ordered By: Jae Ash on 02-17-2025 WBC (Bld) [#/Vol] 8.5 10*3/uL 4.4-11.0 [facility] Absolute lymphocyte countOrd ered By: Jerald Sherwood on 02-16-2025 Lymphocytes Auto (Unsp spec) [#/Vol] 1.28 10*3/uL 0.83-4.51 [facility] Anion gap in Serum or Plasma Ordered By: Jerald Sherwood on 02-16-2025 Anion gap [Moles/Vol] 12 mmol/L 5-15 [facility] Automated lymphocyte count a s percentage of total leukocytesOrdered By: Jerald Sherwood on 02-16-2025 Lymphocytes/100 WBC Auto (Unsp spec) 15.1 % Low 19-41 [facility] BUN/creatinine ratioOrdered By: Jerald Sherwood on 02-16-2025 Urea nitrogen/Creatinine [Mass ratio] 9.4 mg/mg Low 10-20 [facility] Basophil percentageOrdered B y: Jerald Sherwood on 02-16-2025 Basophils/100 WBC (Bld) 0.5 % 0-1 [facility] Bedside Glucoseon 02-16-2025 FINGERSTICK GLU 216 mg/dL High 74-106 [facility] Comment on above: Result Comment: BRISA MOROCHO OF PATIENT CARE PER NURSING PROTOCOL Performed By: #### L 501.080 ####[facility] [address] [place], [address] Bilirubin directOrdered By: Jae Ash on 02-16-2025 Bilirubin.direct [Mass/Vol] 5.10 mg/dL High 0.00-0.30 [facility] Bilirubin, Directon 02-17-20 25 Bilirubin.direct [Mass/Vol] 5.10 mg/dL High 0.00-0.30 [facility] Comment on above: Performed By: #### L 504.2610, L501.4700 ####[facility] [address] [place], [address] Bilirubin, totalOrdered By: Jerald Sherwood on 02-16-2025 Bilirubin [Mass/Vol] 7.29 mg/dL High 0.00-1.30 [facility] CBC W/Diff, Automatedon 02-01 Absolute Lymph 1.28 X10 3/uL Normal 0.83-4.51 [facility] Comment on above: Performed By: #### L 100.0100, L500.4050, L3000.0375, L503.5510 ####[facility] [address] [place], [address] Absolute Neut 5.7 X10 3/uL Normal 2.0-7.7 [facility] Comment on above: Performed By: #### L 100.0100, L500.4050, L3000.0375, L503.5510 ####[facility] [address] [place], [address] Basophils/100 WBC (Bld) 0.5 % Normal 0-1 [facility] Comment on above: Performed By: #### L 100.0100, L500.4050, L3000.0375, L503.5510 ####[facility] [address] [place], [address] Eosinophils/100 WBC (Bld) 5.4 % High 0-5 [facility] Comment on above: Performed By: #### L 100.0100, L500.4050, L3000.0375, L503.5510 ####[facility] [address] [place], [address] Erythrocyte distribution width (RBC) [Ratio] 18.7 % High 11.6-14.6 [facility] Comment on above: Performed By: #### L 100.0100, L500.4050, L3000.0375, L503.5510 ####[facility] [address] [place], [address] Hematocrit (Bld) [Volume fraction] 24.8 % Low 40-54 [facility] Comment on above: Performed By: #### L 100.0100, L500.4050, L3000.0375, L503.5510 ####[facility] [address] [place], [address] Hemoglobin (Bld) [Mass/Vol] 8.2 g/dL Low 13.0-16.5 [facility] Comment on above: Performed By: #### L 100.0100, L500.4050, L3000.0375, L503.5510 ####[facility] [address] [place], [address] IG% 0.200 Normal 0.0-0.9 [facility] Comment on above: Result Comment: IG% - Immature Granulocytes (promyelocytes, myelocytes andmetamyelocytes) > 1% indicates that a LEFT SHIFT is Present. Performed By: #### L 100.0100, L500.4050, L3000.0375, L503.5510 ####[facility] [address] [place], [address] Lymphocytes/100 WBC (Bld) 15.1 % Low 19-41 [facility] Comment on above: Performed By: #### L 100.0100, L500.4050, L3000.0375, L503.5510 ####[facility] [address] [place], [address] MCH (RBC) [Entitic mass] 28.9 pg Normal 27.0-32.0 [facility] Comment on above: Performed By: #### L 100.0100, L500.4050, L3000.0375, L503.5510 ####[facility] [address] [place], [address] MCHC (RBC) [Mass/Vol] 33.1 g/dL Normal 32-36 [facility] Comment on above: Performed By: #### L 100.0100, L500.4050, L3000.0375, L503.5510 ####[facility] [address] [place], [address] MCV (RBC) [Entitic vol] 87.3 fL Normal 80-94 [facility] Comment on above: Performed By: #### L 100.0100, L500.4050, L3000.0375, L503.5510 ####[facility] [address] [place], [address] Monocytes/100 WBC (Bld) 11.7 % High 0-10 [facility] Comment on above: Performed By: #### L 100.0100, L500.4050, L3000.0375, L503.5510 ####[facility] [address] [place], [address] Neutrophils/100 WBC (Bld) 67.1 % Normal 47-70 [facility] Comment on above: Performed By: #### L 100.0100, L500.4050, L3000.0375, L503.5510 ####[facility] [address] [place], [address] Nucleated RBC (Bld) [#/Vol] 0 10*3/uL Normal 0-5 [facility] Comment on above: Performed By: #### L 100.0100, L500.4050, L3000.0375, L503.5510 ####[facility] [address] [place], [address] Platelet mean volume (Bld) [Entitic vol] 12.0 fL Normal 6.2-12.0 [facility] Comment on above: Performed By: #### L 100.0100, L500.4050, L3000.0375, L503.5510 ####[facility] [address] [place], [address] Platelets (Bld) [#/Vol] 106 10*3/uL Low 150-450 [facility] Comment on above: Performed By: #### L 100.0100, L500.4050, L3000.0375, L503.5510 ####[facility] [address] [place], [address] RBC (Bld) [#/Vol] 2.84 10*6/uL Low 4.6-6.2 [facility] Comment on above: Performed By: #### L 100.0100, L500.4050, L3000.0375, L503.5510 ####[facility] [address] [place], [address] RDW SD 53.5 fl High 35.1-43.9 [facility] Comment on above: Performed By: #### L 100.0100, L500.4050, L3000.0375, L503.5510 ####[facility] [address] [place], [address] WBC (Bld) [#/Vol] 8.5 10*3/uL Normal 4.4-11.0 [facility] Comment on above: Performed By: #### L 100.0100, L500.4050, L3000.0375, L503.5510 ####[facility] [address] [place], [address] Carbon dioxide, total [Moles /volume] in Central venous bloodOrdered By: Jerald Sherwood on 02-16-2025 CO2 [Moles/Vol] 24.1 mmol/L 21.0-32.0 [facility] Chloride assayOrdered By: Paulette Sherwood on 02-16-2025 Chloride [Moles/Vol] 99 mmol/L 98-108 [facility] Comprehensive Metabolic Prof ilon 02-16-2025 Albumin [Mass/Vol] 2.3 g/dL Low 3.5-5.0 [facility] Comment on above: Performed By: #### L 100.0100, L500.4050, L3000.0375, L503.5510 ####[facility] [address] [place], [address] Albumin/Globulin [Mass ratio] 0.7 {ratio} Low 0.9-2.4 [facility] Comment on above: Performed By: #### L 100.0100, L500.4050, L3000.0375, L503.5510 ####[facility] [address] [place], [address] ALK PHOS 310 U/L High 40-129 [facility] Comment on above: Performed By: #### L 100.0100, L500.4050, L3000.0375, L503.5510 ####[facility] [address] [place], [address] ALT [Catalytic activity/Vol] 51 U/L High <=46 [facility] Comment on above: Performed By: #### L 100.0100, L500.4050, L3000.0375, L503.5510 ####[facility] [address] [place], [address] AST [Catalytic activity/Vol] 109 U/L High <=37 [facility] Comment on above: Performed By: #### L 100.0100, L500.4050, L3000.0375, L503.5510 ####[facility] [address] [place], [address] Bilirubin [Mass/Vol] 7.29 mg/dL High 0.00-1.30 [facility] Comment on above: Performed By: #### L 100.0100, L500.4050, L3000.0375, L503.5510 ####[facility] [address] [place], [address] BUN/CRE 9.4 RATIO Low 10-20 [facility] Comment on above: Performed By: #### L 100.0100, L500.4050, L3000.0375, L503.5510 ####[facility] [address] [place], [address] Calcium [Mass/Vol] 7.8 mg/dL Normal 7.6-11.0 [facility] Comment on above: Performed By: #### L 100.0100, L500.4050, L3000.0375, L503.5510 ####[facility] [address] [place], [address] Chloride [Moles/Vol] 99 mmol/L Normal 98-108 [facility] Comment on above: Performed By: #### L 100.0100, L500.4050, L3000.0375, L503.5510 ####[facility] [address] [place], [address] CO2 [Moles/Vol] 24.1 mmol/L Normal 21.0-32.0 [facility] Comment on above: Performed By: #### L 100.0100, L500.4050, L3000.0375, L503.5510 ####[facility] [address] [place], [address] Creatinine [Mass/Vol] 1.30 mg/dL High 0.70-1.20 [facility] Comment on above: Result Comment: Icte daquan present, Results may be affected. Performed By: #### L 100.0100, L500.4050, L3000.0375, L503.5510 ####[facility] [address] [place], [address] GAP 12 Normal 5-15 [facility] Comment on above: Performed By: #### L 100.0100, L500.4050, L3000.0375, L503.5510 ####[facility] [address] [place], [address] GFR/1.73 sq M.predicted among non-blacks MDRD (S/P/Bld) [Vol rate/Area] 64 mL/min/{1.73_m2} Normal >60 [facility] Comment on above: Result Comment: mL/m in/1.73m2 CKD-EPI Creatinine Equation (2020) Performed By: #### L 100.0100, L500.4050, L3000.0375, L503.5510 ####[facility] [address] [place], [address] Globulin (S) [Mass/Vol] 3.5 g/dL Normal 2.2-4.2 [facility] Comment on above: Performed By: #### L 100.0100, L500.4050, L3000.0375, L503.5510 ####[facility] [address] [place], [address] Glucose [Mass/Vol] 250 mg/dL High 70-99 [facility] Comment on above: Performed By: #### L 100.0100, L500.4050, L3000.0375, L503.5510 ####[facility] [address] [place], [address] Potassium [Moles/Vol] 3.1 mmol/L Low 3.3-5.1 [facility] Comment on above: Performed By: #### L 100.0100, L500.4050, L3000.0375, L503.5510 ####[facility] [address] [place], [address] Sodium [Moles/Vol] 135 mmol/L Normal 133-145 [facility] Comment on above: Performed By: #### L 100.0100, L500.4050, L3000.0375, L503.5510 ####[facility] [address] [place], [address] T PROT 5.8 g/dL Low 5.9-8.4 [facility] Comment on above: Performed By: #### L 100.0100, L500.4050, L3000.0375, L503.5510 ####[facility] [address] [place], [address] Urea nitrogen [Mass/Vol] 12 mg/dL Normal 4-19 [facility] Comment on above: Performed By: #### L 100.0100, L500.4050, L3000.0375, L503.5510 ####[facility] [address] [place], [address] Emergency Department Summary on 02-16-2025 Emergency Department Summary Normal [facility] Eosinophil percentageOrdered By: Jerald Sherwood on 02-16-2025 Eosinophils/100 WBC (Bld) 5.4 % High 0-5 [facility] Erythrocyte distribution wid th ratioOrdered By: Jerald Sherwood on 02-16-2025 Erythrocyte distribution width (RBC) [Ratio] 18.7 % High 11.6-14.6 [facility] Erythrocyte distribution wid th standard deviationOrdered By: Jerald Sherwood on 02-16-2025 Erythrocyte distribution width (RBC) [Ratio] 53.5 fl High 35.1-43.9 [facility] Glomerular filtration rate ( GFR) estimation/1.73 sq m using serum, plasma, or whole bOrdered By: Jerald Sherwood on 02-16-2025 GFR/1.73 sq M.predicted among non-blacks MDRD (S/P/Bld) [Vol rate/Area] 64 mL/min/{1.73_m2} >60 [facility] H AND P Exam - Hospitaliston 02-16-2025 H&P Exam - Hospitalist Normal [facility] Hematocrit Auto (Bld) [Volum e fraction]Ordered By: Jerald Sherwood on 02-16-2025 Hematocrit (Bld) [Volume fraction] 24.8 % Low 40-54 [facility] Hemoglobin measurementOrdere d By: Jerald Sherwood on 02-16-2025 Hemoglobin (Bld) [Mass/Vol] 8.2 g/dL Low 13.0-16.5 [facility] Immature granulocytes/100 WB C Auto (Bld)Ordered By: Jerald Sherwood on 02-16-2025 Immature granulocytes/100 WBC (Bld) 0.200 % 0.0-0.9 [facility] LDHon 02-16-2025 LDH 273 U/L High 87-241 [facility] Comment on above: Performed By: #### L 504.2610, L501.4700 ####[facility] [address] [place], [place], [id number] MCV (mean corpuscular volume ) determinationOrdered By: Jerald Sherwood on 02-16-2025 MCV (RBC) [Entitic vol] 87.3 fL 80-94 [facility] Magnesiumon 02-16-2025 Magnesium [Mass/Vol] 1.3 mg/dL Low 1.5-2.2 [facility] Comment on above: Performed By: #### L 501.2300, L501.5200 ####[facility] [address] [place], [place], [id number] Magnesium measurement (mass/ volume)Ordered By: Jae Ash on 02-16-2025 Magnesium (Unsp spec) [Mass/Vol] 1.3 mg/dL Low 1.5-2.2 [facility] Mean corpuscular hemoglobin (MCH) determinationOrdered By: Jerald Sherwood on 02-16-2025 MCH (RBC) [Entitic mass] 28.9 pg 27.0-32.0 [facility] Monocyte percentageOrdered B y: Jerald Sherwood on 02-16-2025 Monocytes/100 WBC (Bld) 11.7 % High 0-10 [facility] Neutrophil percentageOrdered By: Jerald Sherwood on 02-16-2025 Neutrophils/100 WBC (Bld) 67.1 % 47-70 [facility] No Panel InformationOrdered By: Jerald Sherwood on 02-16-2025 109 U/L High <38 [facility] Comment . [facility] Phosphoruson 02-16-2025 Phosphate [Mass/Vol] 2.3 mg/dL Low 2.7-4.5 [facility] Comment on above: Performed By: #### L 501.2300, L501.5200 ####[facility] [address] [place], [address] Platelet countOrdered By: Paulette Sherwood on 02-16-2025 Platelets (Bld) [#/Vol] 106 10*3/uL Low 150-450 [facility] Potassium measurement (mass/ volume)Ordered By: Jerald Sherwood on 02-16-2025 Potassium (Unsp spec) [Mass/Vol] 3.1 mmol/L Low 3.3-5.1 [facility] Prothrombin Time w/INRon INR Coag (PPP) [Relative time] 1.8 {INR} Normal [facility] Comment on above: Performed By: #### L 300.3900 ####[facility] [address] [place], [address] PT Coag (PPP) [Time] 21.1 s High 11.7-14.9 [facility] Comment on above: Performed By: #### L 300.3900 ####[facility] [address] [place], [place], [address] RBC Auto (Bld) [#/Vol]Ordere d By: Jerald Sherwood on 02-16-2025 RBC (Bld) [#/Vol] 2.84 10*6/uL Low 4.6-6.2 [facility] Serum creatinine measurement (mass/volume)Ordered By: Jerald Sherwood on 02-16-2025 Creatinine [Mass/Vol] 1.30 mg/dL High 0.70-1.20 [facility] Serum globulin measurementOr dered By: Jerald Sherwood on 02-16-2025 Globulin (S) [Mass/Vol] 3.5 g/dL 2.2-4.2 [facility] Serum glucose measurement (m ass/volume)Ordered By: Jerald Sherwood on 02-16-2025 Glucose [Mass/Vol] 250 mg/dL High 70-99 [facility] Serum or plasma alanine thomas otransferase (ALT) measurementOrdered By: Jerald Sherwood on 02-16-2025 ALT [Catalytic activity/Vol] 51 U/L High <47 [facility] Serum or plasma albumin roosevelt urement (mass/volume)Ordered By: Jerald Sherwood on 02-16-2025 Albumin [Mass/Vol] 2.3 g/dL Low 3.5-5.0 [facility] Serum or plasma albumin/glob ulin mass ratioOrdered By: Jerald Sherwood on 02-16-2025 Albumin/Globulin [Mass ratio] 0.7 {ratio} Low 0.9-2.4 [facility] Serum or plasma alkaline kendrick sphatase measurementOrdered By: Jerald Sherwood on 02-16-2025 ALP [Catalytic activity/Vol] 310 U/L High 40-129 [facility] Serum or plasma calcium roosevelt urement (mass/volume)Ordered By: Jerald Sherwood on 02-16-2025 Calcium [Mass/Vol] 7.8 mg/dL 7.6-11.0 [facility] Serum or plasma hepatitis B virus surface antigen detection by immunoassayOrdered By: Jerald Sherwood on 02-16-2025 HBV surface Ag IA Ql Negative Negative [facility] Serum or plasma urea nitroge n measurement (mass/volume)Ordered By: Jerald Sherwood on 02-16-2025 Urea nitrogen [Mass/Vol] 12 mg/dL 4-19 [facility] Sodium levelOrdered By: Jerald Sherwood on 02-16-2025 Sodium [Moles/Vol] 135 mmol/L 133-145 [facility] Total proteinOrdered By: Candie Sherwood on 02-16-2025 Protein [Mass/Vol] 5.8 g/dL Low 5.9-8.4 [facility] Venous blood ammonia measure mentOrdered By: Jerald Sherwood on 02-16-2025 Ammonia (P) [Moles/Vol] 88.0 umol/L High 16-60 [facility] Comment on above: Performed By: #### L 100.0100, L500.4050, L3000.0375, L503.5510 ####[facility] [address] [place], [place], [id number] White blood cell (WBC) count Ordered By: Jerald Sherwood on 02-16-2025 WBC (Bld) [#/Vol] 8.5 10*3/uL 4.4-11.0 [facility] Abdomen/Pelvis W IV Cont ONL Yon 02-13-2025 Abdomen/Pelvis W IV Cont ONLY Normal [facility] Absolute lymphocyte countOrd ered By: Luis Carlos Anderson on 02-13-2025 Lymphocytes Auto (Unsp spec) [#/Vol] 1.20 10*3/uL 0.83-4.51 [facility] Anion gap in Serum or Plasma Ordered By: Luis Carlos Anderson on 02-13-2025 Anion gap [Moles/Vol] 14 mmol/L 5-15 [facility] Automated lymphocyte count a s percentage of total leukocytesOrdered By: Luis Carlos Anderson on 02-13-2025 Lymphocytes/100 WBC Auto (Unsp spec) 13.9 % Low 19-41 [facility] BUN/creatinine ratioOrdered By: Luis Carlos Anderson on 02-13-2025 Urea nitrogen/Creatinine [Mass ratio] 14.3 mg/mg 10-20 [facility] Basophil percentageOrdered B y: Luis Carlos Anderson on 02-13-2025 Basophils/100 WBC (Bld) 0.3 % 0-1 [facility] Bilirubin, totalOrdered By: Luis Carlos Anderson on 02-13-2025 Bilirubin [Mass/Vol] 6.20 mg/dL High 0.00-1.30 [facility] Blood manual differential co mment interpretation (narrative result)Ordered By: Luis Carlos Anderson on 02-13-2025 Manual differential comment Marco Antonio (Bld) [Interp] SCANNED [facility] CBC W/Diff, Automatedon 02-01 PLT EST MOD DEC Normal ADEQ [facility] Comment on above: Performed By: #### L 100.0100, L500.4050, L501.2450 ####[facility] [address] [place], [address] Platelet mean volume (Bld) [Entitic vol] 10.8 fL Normal 6.2-12.0 [facility] Comment on above: Performed By: #### L 100.0100, L500.4050, L501.2450 ####[facility] [address] [place], [address] Platelets (Bld) [#/Vol] 83 10*3/uL Low 150-450 [facility] Comment on above: Result Comment: NO C LUMPING SEEN Performed By: #### L 100.0100, L500.4050, L501.2450 ####[facility] [address] [place], [address] SMEAR COMMENT SCANNED Normal [facility] Comment on above: Performed By: #### L 100.0100, L500.4050, L501.2450 ####[facility] [address] [place], [address] Carbon dioxide, total [Moles /volume] in Central venous bloodOrdered By: Luis Carlos Anderson on 02-13-2025 CO2 [Moles/Vol] 18.4 mmol/L Low 21.0-32.0 [facility] Chloride assayOrdered By: Yaya Anderson on 02-13-2025 Chloride [Moles/Vol] 102 mmol/L 98-108 [facility] Comprehensive Metabolic Prof ilon 02-13-2025 Albumin [Mass/Vol] 2.2 g/dL Low 3.5-5.0 [facility] Comment on above: Performed By: #### L 100.0100, L500.4050, L501.2450 ####[facility] [address] [place], [address] Albumin/Globulin [Mass ratio] 0.6 {ratio} Low 0.9-2.4 [facility] Comment on above: Performed By: #### L 100.0100, L500.4050, L501.2450 ####[facility] [address] [place], [address] ALK PHOS 335 U/L High 40-129 [facility] Comment on above: Performed By: #### L 100.0100, L500.4050, L501.2450 ####[facility] [address] [place], [address] ALT [Catalytic activity/Vol] 53 U/L High <=46 [facility] Comment on above: Performed By: #### L 100.0100, L500.4050, L501.2450 ####[facility] [address] [place], [address] AST [Catalytic activity/Vol] 120 U/L High <=37 [facility] Comment on above: Performed By: #### L 100.0100, L500.4050, L501.2450 ####[facility] [address] [place], [address] Bilirubin [Mass/Vol] 6.20 mg/dL High 0.00-1.30 [facility] Comment on above: Performed By: #### L 100.0100, L500.4050, L501.2450 ####[facility] [address] [place], [address] BUN/CRE 14.3 RATIO Normal 10-20 [facility] Comment on above: Performed By: #### L 100.0100, L500.4050, L501.2450 ####[facility] [address] [place], [address] Calcium [Mass/Vol] 8.3 mg/dL Normal 7.6-11.0 [facility] Comment on above: Performed By: #### L 100.0100, L500.4050, L501.2450 ####[facility] [address] [place], [address] Chloride [Moles/Vol] 102 mmol/L Normal 98-108 [facility] Comment on above: Performed By: #### L 100.0100, L500.4050, L501.2450 ####[facility] [address] [place], [address] CO2 [Moles/Vol] 18.4 mmol/L Low 21.0-32.0 [facility] Comment on above: Performed By: #### L 100.0100, L500.4050, L501.2450 ####[facility] [address] [place], [address] Creatinine [Mass/Vol] 1.78 mg/dL High 0.70-1.20 [facility] Comment on above: Result Comment: Icte daquan present, Results may be affected. Performed By: #### L 100.0100, L500.4050, L501.2450 ####[facility] [address] [place], [address] ECRCL 53.12 ml/min Normal 50-250 [facility] Comment on above: Performed By: #### L 100.0100, L500.4050, L501.2450 ####[facility] [address] [place], [address] GAP 14 Normal 5-15 [facility] Comment on above: Performed By: #### L 100.0100, L500.4050, L501.2450 ####[facility] [address] [place], [address] GFR/1.73 sq M.predicted among non-blacks MDRD (S/P/Bld) [Vol rate/Area] 44 mL/min/{1.73_m2} Low >60 [facility] Comment on above: Result Comment: mL/m in/1.73m2 CKD-EPI Creatinine Equation (2020) Performed By: #### L 100.0100, L500.4050, L501.2450 ####[facility] [address] [place], [address] Globulin (S) [Mass/Vol] 3.7 g/dL Normal 2.2-4.2 [facility] Comment on above: Performed By: #### L 100.0100, L500.4050, L501.2450 ####[facility] [address] [place], [address] Glucose [Mass/Vol] 169 mg/dL High 70-99 [facility] Comment on above: Performed By: #### L 100.0100, L500.4050, L501.2450 ####[facility] [address] [place], [address] Potassium [Moles/Vol] 3.4 mmol/L Normal 3.3-5.1 [facility] Comment on above: Result Comment: Hemo lysis present, Results??could be affected.?? Performed By: #### L 100.0100, L500.4050, L501.2450 ####[facility] [address] [place], [address] Sodium [Moles/Vol] 135 mmol/L Normal 133-145 [facility] Comment on above: Performed By: #### L 100.0100, L500.4050, L501.2450 ####[facility] [facility] [address] [place], [address] T PROT 5.8 g/dL Low 5.9-8.4 [facility] Comment on above: Performed By: #### L 100.0100, L500.4050, L501.2450 ####[facility] [address] [place], [address] Urea nitrogen [Mass/Vol] 25 mg/dL High 4-19 [facility] Comment on above: Performed By: #### L 100.0100, L500.4050, L501.2450 ####[facility] [address] [place], [address] Emergency Department Summary on 02-13-2025 Emergency Department Summary Normal [facility] Eosinophil percentageOrdered By: Luis Carlos Anderson on 02-13-2025 Eosinophils/100 WBC (Bld) 5.1 % High 0-5 [facility] Erythrocyte distribution wid th ratioOrdered By: Luis Carlos Anderson on 02-13-2025 Erythrocyte distribution width (RBC) [Ratio] 17.4 % High 11.6-14.6 [facility] Erythrocyte distribution wid th standard deviationOrdered By: Luis Carlos Anderson on 02-13-2025 Erythrocyte distribution width (RBC) [Ratio] 52.3 fl High 35.1-43.9 [facility] Glomerular filtration rate ( GFR) estimation/1.73 sq m using serum, plasma, or whole bOrdered By: Luis Carlos Anderson on 02-13-2025 GFR/1.73 sq M.predicted among non-blacks MDRD (S/P/Bld) [Vol rate/Area] 44 mL/min/{1.73_m2} Low >60 [facility] Hematocrit Auto (Bld) [Volum e fraction]Ordered By: Luis Carlos Anderson on 02-13-2025 Hematocrit (Bld) [Volume fraction] 24.1 % Low 40-54 [facility] Hemoglobin measurementOrdere d By: Luis Carlos Anderson on 02-13-2025 Hemoglobin (Bld) [Mass/Vol] 8.3 g/dL Low 13.0-16.5 [facility] Immature granulocytes/100 WB C Auto (Bld)Ordered By: Luis Carlos Anderson on 02-13-2025 Immature granulocytes/100 WBC (Bld) 0.500 % 0.0-0.9 [facility] Lipaseon 02-13-2025 Lipase [Catalytic activity/Vol] 60 U/L Normal 13-75 [facility] Comment on above: Result Comment: Siddhartha bhat note:LIPASE revised reference range effective 22.New Lipase methodology. Expected to produce lower valuesthan the previous assay method.NEW Reference Range: 13 - 75 U/L Performed By: #### L 100.0100, L500.4050, L501.2450 ####[facility] [address] [place], [place], [id number] MCV (mean corpuscular volume ) determinationOrdered By: Luis Carlos Anderson on 02-13-2025 MCV (RBC) [Entitic vol] 84.9 fL 80-94 [facility] Mean corpuscular hemoglobin (MCH) determinationOrdered By: Luis Carlos Anderson on 02-13-2025 MCH (RBC) [Entitic mass] 29.2 pg 27.0-32.0 [facility] Monocyte percentageOrdered B y: Luis Carlos Anderson on 02-13-2025 Monocytes/100 WBC (Bld) 16.1 % High 0-10 [facility] Neutrophil percentageOrdered By: Luis Carlos Anderson on 02-13-2025 Neutrophils/100 WBC (Bld) 64.1 % 47-70 [facility] No Panel InformationOrdered By: Luis Carlos Anderson on 02-13-2025 120 U/L High <38 [facility] Platelet countOrdered By: felipe Anderson on 02-13-2025 Platelets (Bld) [#/Vol] 83 10*3/uL Low 150-450 [facility] Platelet estimateOrdered By: Luis Carlos Anderson on 02-13-2025 Platelets LM Ql (Bld) MOD DEC ADEQ [facility] Potassium measurement (mass/ volume)Ordered By: Luis Carlos Anderson on 02-13-2025 Potassium (Unsp spec) [Mass/Vol] 3.4 mmol/L 3.3-5.1 [facility] RBC Auto (Bld) [#/Vol]Ordere d By: Luis Carlos Anderson on 02-13-2025 RBC (Bld) [#/Vol] 2.84 10*6/uL Low 4.6-6.2 [facility] Serum creatinine measurement (mass/volume)Ordered By: Luis Carlos Anderson on 02-13-2025 Creatinine [Mass/Vol] 1.78 mg/dL High 0.70-1.20 [facility] Serum globulin measurementOr dered By: Luis Carlos Anderson on 02-13-2025 Globulin (S) [Mass/Vol] 3.7 g/dL 2.2-4.2 [facility] Serum glucose measurement (m ass/volume)Ordered By: Luis Carlos Anderson on 02-13-2025 Glucose [Mass/Vol] 169 mg/dL High 70-99 [facility] Serum or plasma alanine thomas otransferase (ALT) measurementOrdered By: Luis Carlos Anderson on 02-13-2025 ALT [Catalytic activity/Vol] 53 U/L High <47 [facility] Serum or plasma albumin roosevelt urement (mass/volume)Ordered By: Luis Carlos Anderson on 02-13-2025 Albumin [Mass/Vol] 2.2 g/dL Low 3.5-5.0 [facility] Serum or plasma albumin/glob ulin mass ratioOrdered By: Luis Carlos Anderson on 02-13-2025 Albumin/Globulin [Mass ratio] 0.6 {ratio} Low 0.9-2.4 [facility] Serum or plasma alkaline kendrick sphatase measurementOrdered By: Luis Carlos Anderson on 02-13-2025 ALP [Catalytic activity/Vol] 335 U/L High 40-129 [facility] Serum or plasma calcium roosevelt urement (mass/volume)Ordered By: Luis Carlos Anderson on 02-13-2025 Calcium [Mass/Vol] 8.3 mg/dL 7.6-11.0 [facility] Serum or plasma urea nitroge n measurement (mass/volume)Ordered By: Luis Carlos Anderson on 02-13-2025 Urea nitrogen [Mass/Vol] 25 mg/dL High 4-19 [facility] Sodium levelOrdered By: Yunior Anderson on 02-13-2025 Sodium [Moles/Vol] 135 mmol/L 133-145 [facility] Total proteinOrdered By: Emmy alexandria Anderson on 02-13-2025 Protein [Mass/Vol] 5.8 g/dL Low 5.9-8.4 [facility] White blood cell (WBC) count Ordered By: Luis Carlos Justin on 02-13-2025 WBC (Bld) [#/Vol] 8.6 10*3/uL 4.4-11.0 [facility] Operative Reporton Operative Report Normal [facility] Paracentesis with USon 02-11 Paracentesis with US Normal [facility] Emergency Department Summary on 02-08-2025 Emergency Department Summary Normal [facility] Abdomen/Pelvis W IV Cont ONL Yon 02-07-2025 Abdomen/Pelvis W IV Cont ONLY Normal [facility] Absolute lymphocyte countOrd ered By: ED PROVIDER on 02-07-2025 Lymphocytes Auto (Unsp spec) [#/Vol] 1.39 10*3/uL 0.83-4.51 [facility] Anion gap in Serum or Plasma Ordered By: ED PROVIDER on 02-07-2025 Anion gap [Moles/Vol] 9 mmol/L 5-15 [facility] Automated lymphocyte count a s percentage of total leukocytesOrdered By: ED PROVIDER on 02-07-2025 Lymphocytes/100 WBC Auto (Unsp spec) 12.8 % Low 19-41 [facility] BUN/creatinine ratioOrdered By: ED PROVIDER on 02-07-2025 Urea nitrogen/Creatinine [Mass ratio] 13.9 mg/mg 10-20 [facility] Basophil percentageOrdered B y: ED PROVIDER on 02-07-2025 Basophils/100 WBC (Bld) 0.5 % 0-1 [facility] Bilirubin, totalOrdered By: ED PROVIDER on 02-07-2025 Bilirubin [Mass/Vol] 1.92 mg/dL High 0.00-1.30 [facility] CBC W/Diff, Automatedon Absolute Lymph 1.39 X10 3/uL Normal 0.83-4.51 [facility] Comment on above: Performed By: #### L 500.4050, L100.0100, L501.2450 ####[facility] [address] [place], [address] Absolute Neut 7.9 X10 3/uL High 2.0-7.7 [facility] Comment on above: Performed By: #### L 500.4050, L100.0100, L501.2450 ####[facility] [address] [place], [address] Basophils/100 WBC (Bld) 0.5 % Normal 0-1 [facility] Comment on above: Performed By: #### L 500.4050, L100.0100, L501.2450 ####[facility] [address] [place], [address] Eosinophils/100 WBC (Bld) 5.4 % High 0-5 [facility] Comment on above: Performed By: #### L 500.4050, L100.0100, L501.2450 ####[facility] [address] [place], [address] Erythrocyte distribution width (RBC) [Ratio] 17.9 % High 11.6-14.6 [facility] Comment on above: Performed By: #### L 500.4050, L100.0100, L501.2450 ####[facility] [address] [place], [address] Hematocrit (Bld) [Volume fraction] 28.8 % Low 40-54 [facility] Comment on above: Performed By: #### L 500.4050, L100.0100, L501.2450 ####[facility] [address] [place], [address] Hemoglobin (Bld) [Mass/Vol] 9.2 g/dL Low 13.0-16.5 [facility] Comment on above: Performed By: #### L 500.4050, L100.0100, L501.2450 ####[facility] [address] [place], [address] IG% 0.400 Normal 0.0-0.9 [facility] Comment on above: Result Comment: IG% - Immature Granulocytes (promyelocytes, myelocytes andmetamyelocytes) > 1% indicates that a LEFT SHIFT is Present. Performed By: #### L 500.4050, L100.0100, L501.2450 ####[facility] [address] [place], [address] Lymphocytes/100 WBC (Bld) 12.8 % Low 19-41 [facility] Comment on above: Performed By: #### L 500.4050, L100.0100, L501.2450 ####[facility] [address] [place], [address] MCH (RBC) [Entitic mass] 29.0 pg Normal 27.0-32.0 [facility] Comment on above: Performed By: #### L 500.4050, L100.0100, L501.2450 ####[facility] [address] [place], [address] MCHC (RBC) [Mass/Vol] 31.9 g/dL Low 32-36 [facility] Comment on above: Performed By: #### L 500.4050, L100.0100, L501.2450 ####[facility] [address] [place], [address] MCV (RBC) [Entitic vol] 90.9 fL Normal 80-94 [facility] Comment on above: Performed By: #### L 500.4050, L100.0100, L501.2450 ####[facility] [address] [place], [address] Monocytes/100 WBC (Bld) 8.1 % Normal 0-10 [facility] Comment on above: Performed By: #### L 500.4050, L100.0100, L501.2450 ####[facility] [address] [place], [address] Neutrophils/100 WBC (Bld) 72.8 % High 47-70 [facility] Comment on above: Performed By: #### L 500.4050, L100.0100, L501.2450 ####[facility] [address] [place], [address] Nucleated RBC (Bld) [#/Vol] 0 10*3/uL Normal 0-5 [facility] Comment on above: Performed By: #### L 500.4050, L100.0100, L501.2450 ####[facility] [address] [place], [address] Platelet mean volume (Bld) [Entitic vol] 10.1 fL Normal 6.2-12.0 [facility] Comment on above: Performed By: #### L 500.4050, L100.0100, L501.2450 ####[facility] [address] [place], [address] Platelets (Bld) [#/Vol] 131 10*3/uL Low 150-450 [facility] Comment on above: Performed By: #### L 500.4050, L100.0100, L501.2450 ####[facility] [address] [place], [address] RBC (Bld) [#/Vol] 3.17 10*6/uL Low 4.6-6.2 [facility] Comment on above: Performed By: #### L 500.4050, L100.0100, L501.2450 ####[facility] [address] [place], [address] RDW SD 58.3 fl High 35.1-43.9 [facility] Comment on above: Performed By: #### L 500.4050, L100.0100, L501.2450 ####[facility] [address] [place], [address] WBC (Bld) [#/Vol] 10.8 10*3/uL Normal 4.4-11.0 [facility] Comment on above: Performed By: #### L 500.4050, L100.0100, L501.2450 ####[facility] [address] [place], [address] Carbon dioxide, total [Moles /volume] in Central venous bloodOrdered By: ED PROVIDER on 02-07-2025 CO2 [Moles/Vol] 22.7 mmol/L 21.0-32.0 [facility] Chloride assayOrdered By: ED PROVIDER on 02-07-2025 Chloride [Moles/Vol] 106 mmol/L 98-108 [facility] Comprehensive Metabolic Prof ilon 02-07-2025 Albumin [Mass/Vol] 2.2 g/dL Low 3.5-5.0 [facility] Comment on above: Performed By: #### L 500.4050, L100.0100, L501.2450 ####[facility] [address] [place], [address] Albumin/Globulin [Mass ratio] 0.6 {ratio} Low 0.9-2.4 [facility] Comment on above: Performed By: #### L 500.4050, L100.0100, L501.2450 ####[facility] [address] [place], [address] ALK PHOS 218 U/L High 40-129 [facility] Comment on above: Performed By: #### L 500.4050, L100.0100, L501.2450 ####[facility] [address] [place], [address] ALT [Catalytic activity/Vol] 30 U/L Normal <=46 [facility] Comment on above: Performed By: #### L 500.4050, L100.0100, L501.2450 ####[facility] [address] [place], [address] AST [Catalytic activity/Vol] 55 U/L High <=37 [facility] Comment on above: Performed By: #### L 500.4050, L100.0100, L501.2450 ####[facility] [address] [place], [address] Bilirubin [Mass/Vol] 1.92 mg/dL High 0.00-1.30 [facility] Comment on above: Performed By: #### L 500.4050, L100.0100, L501.2450 ####[facility] [address] [place], [address] BUN/CRE 13.9 RATIO Normal 10-20 [facility] Comment on above: Performed By: #### L 500.4050, L100.0100, L501.2450 ####[facility] [address] [place], [address] Calcium [Mass/Vol] 8.4 mg/dL Normal 7.6-11.0 [facility] Comment on above: Performed By: #### L 500.4050, L100.0100, L501.2450 ####[facility] [address] [place], [address] Chloride [Moles/Vol] 106 mmol/L Normal 98-108 [facility] Comment on above: Performed By: #### L 500.4050, L100.0100, L501.2450 ####[facility] [address] [place], [address] CO2 [Moles/Vol] 22.7 mmol/L Normal 21.0-32.0 [facility] Comment on above: Performed By: #### L 500.4050, L100.0100, L501.2450 ####[facility] [address] [place], [address] Creatinine [Mass/Vol] 1.05 mg/dL Normal 0.70-1.20 [facility] Comment on above: Performed By: #### L 500.4050, L100.0100, L501.2450 ####[facility] [address] [place], [address] GAP 9 Normal 5-15 [facility] Comment on above: Performed By: #### L 500.4050, L100.0100, L501.2450 ####[facility] [address] [place], [address] GFR/1.73 sq M.predicted among non-blacks MDRD (S/P/Bld) [Vol rate/Area] 82 mL/min/{1.73_m2} Normal >60 [facility] Comment on above: Result Comment: mL/m in/1.73m2 CKD-EPI Creatinine Equation (2020) Performed By: #### L 500.4050, L100.0100, L501.2450 ####[facility] [address] [place], [address] Globulin (S) [Mass/Vol] 3.5 g/dL Normal 2.2-4.2 [facility] Comment on above: Performed By: #### L 500.4050, L100.0100, L501.2450 ####[facility] [address] [place], [address] Glucose [Mass/Vol] 142 mg/dL High 70-99 [facility] Comment on above: Performed By: #### L 500.4050, L100.0100, L501.2450 ####[facility] [address] [place], [address] Potassium [Moles/Vol] 3.7 mmol/L Normal 3.3-5.1 [facility] Comment on above: Performed By: #### L 500.4050, L100.0100, L501.2450 ####[facility] [address] [place], [address] Sodium [Moles/Vol] 137 mmol/L Normal 133-145 [facility] Comment on above: Performed By: #### L 500.4050, L100.0100, L501.2450 ####[facility] [address] [place], [address] T PROT 5.8 g/dL Low 5.9-8.4 [facility] Comment on above: Performed By: #### L 500.4050, L100.0100, L501.2450 ####[facility] [address] [place], [address] Urea nitrogen [Mass/Vol] 15 mg/dL Normal 4-19 [facility] Comment on above: Performed By: #### L 500.4050, L100.0100, L501.2450 ####[facility] [address] [place], [address] Eosinophil percentageOrdered By: ED PROVIDER on 02-07-2025 Eosinophils/100 WBC (Bld) 5.4 % High 0-5 [facility] Erythrocyte distribution wid th ratioOrdered By: ED PROVIDER on 02-07-2025 Erythrocyte distribution width (RBC) [Ratio] 17.9 % High 11.6-14.6 [facility] Erythrocyte distribution wid th standard deviationOrdered By: ED PROVIDER on 02-07-2025 Erythrocyte distribution width (RBC) [Ratio] 58.3 fl High 35.1-43.9 [facility] Glomerular filtration rate ( GFR) estimation/1.73 sq m using serum, plasma, or whole bOrdered By: ED PROVIDER on 02-07-2025 GFR/1.73 sq M.predicted among non-blacks MDRD (S/P/Bld) [Vol rate/Area] 82 mL/min/{1.73_m2} >60 [facility] Hematocrit Auto (Bld) [Volum e fraction]Ordered By: ED PROVIDER on 02-07-2025 Hematocrit (Bld) [Volume fraction] 28.8 % Low 40-54 [facility] Hemoglobin measurementOrdere d By: ED PROVIDER on 02-07-2025 Hemoglobin (Bld) [Mass/Vol] 9.2 g/dL Low 13.0-16.5 [facility] Immature granulocytes/100 WB C Auto (Bld)Ordered By: ED PROVIDER on 02-07-2025 Immature granulocytes/100 WBC (Bld) 0.400 % 0.0-0.9 [facility] Lipaseon 02-07-2025 Lipase [Catalytic activity/Vol] 35 U/L Normal 13-75 [facility] Comment on above: Result Comment: Siddhartha bhat note:LIPASE revised reference range effective 22.New Lipase methodology. Expected to produce lower valuesthan the previous assay method.NEW Reference Range: 13 - 75 U/L Performed By: #### L 500.4050, L100.0100, L501.2450 ####[facility] [address] [place], [address] MCV (mean corpuscular volume ) determinationOrdered By: ED PROVIDER on 02-07-2025 MCV (RBC) [Entitic vol] 90.9 fL 80-94 [facility] Mean corpuscular hemoglobin (MCH) determinationOrdered By: ED PROVIDER on 02-07-2025 MCH (RBC) [Entitic mass] 29.0 pg 27.0-32.0 [facility] Monocyte percentageOrdered B y: ED PROVIDER on 02-07-2025 Monocytes/100 WBC (Bld) 8.1 % 0-10 [facility] Neutrophil percentageOrdered By: ED PROVIDER on 02-07-2025 Neutrophils/100 WBC (Bld) 72.8 % High 47-70 [facility] No Panel InformationOrdered By: ED PROVIDER on 02-07-2025 55 U/L High <38 [facility] Platelet countOrdered By: ED PROVIDER on 02-07-2025 Platelets (Bld) [#/Vol] 131 10*3/uL Low 150-450 [facility] Potassium measurement (mass/ volume)Ordered By: ED PROVIDER on 02-07-2025 Potassium (Unsp spec) [Mass/Vol] 3.7 mmol/L 3.3-5.1 [facility] RBC Auto (Bld) [#/Vol]Ordere d By: ED PROVIDER on 02-07-2025 RBC (Bld) [#/Vol] 3.17 10*6/uL Low 4.6-6.2 [facility] Serum creatinine measurement (mass/volume)Ordered By: ED PROVIDER on 02-07-2025 Creatinine [Mass/Vol] 1.05 mg/dL 0.70-1.20 [facility] Serum globulin measurementOr dered By: ED PROVIDER on 02-07-2025 Globulin (S) [Mass/Vol] 3.5 g/dL 2.2-4.2 [facility] Serum glucose measurement (m ass/volume)Ordered By: ED PROVIDER on 02-07-2025 Glucose [Mass/Vol] 142 mg/dL High 70-99 [facility] Serum or plasma alanine thomas otransferase (ALT) measurementOrdered By: ED PROVIDER on 02-07-2025 ALT [Catalytic activity/Vol] 30 U/L <47 [facility] Serum or plasma albumin roosevelt urement (mass/volume)Ordered By: ED PROVIDER on 02-07-2025 Albumin [Mass/Vol] 2.2 g/dL Low 3.5-5.0 [facility] Serum or plasma albumin/glob ulin mass ratioOrdered By: ED PROVIDER on 02-07-2025 Albumin/Globulin [Mass ratio] 0.6 {ratio} Low 0.9-2.4 [facility] Serum or plasma alkaline kendrick sphatase measurementOrdered By: ED PROVIDER on 02-07-2025 ALP [Catalytic activity/Vol] 218 U/L High 40-129 [facility] Serum or plasma calcium roosevelt urement (mass/volume)Ordered By: ED PROVIDER on 02-07-2025 Calcium [Mass/Vol] 8.4 mg/dL 7.6-11.0 [facility] Serum or plasma urea nitroge n measurement (mass/volume)Ordered By: ED PROVIDER on 02-07-2025 Urea nitrogen [Mass/Vol] 15 mg/dL 4-19 [facility] Sodium levelOrdered By: ED P ROREBECCADER on 02-07-2025 Sodium [Moles/Vol] 137 mmol/L 133-145 [facility] Total proteinOrdered By: ED PROVIDER on 02-07-2025 Protein [Mass/Vol] 5.8 g/dL Low 5.9-8.4 [facility] White blood cell (WBC) count Ordered By: ED PROVIDER on 02-07-2025 WBC (Bld) [#/Vol] 10.8 10*3/uL 4.4-11.0 [facility] Culture, Blood (WB)on 2024 CUB Blood cultures x2, f rom two different sites No growth in 5 days. Normal [facility] Comment on above: Performed By: #### M 200.1000 ####[facility] [address] [place], [address] Anion gap in Serum or Plasma Ordered By: Yaritza Leo on 01-31-2025 Anion gap [Moles/Vol] 9 mmol/L 5-15 [facility] BUN/creatinine ratioOrdered By: Yaritza Leo on 01-31-2025 Urea nitrogen/Creatinine [Mass ratio] 10.7 mg/mg 10- [facility] Basic Metabolic Profile (BMP )on 01-31-2025 BUN/CRE 10.7 RATIO Normal - [facility] Comment on above: Performed By: #### L 500.2500, L100.0500 ####[facility] [address] [place], [address] Calcium [Mass/Vol] 8.5 mg/dL Normal 7.6-11.0 [facility] Comment on above: Performed By: #### L 500.2500, L100.0500 ####[facility] [address] [place], [address] Chloride [Moles/Vol] 102 mmol/L Normal 98-108 [facility] Comment on above: Performed By: #### L 500.2500, L100.0500 ####[facility] [address] [place], [address] CO2 [Moles/Vol] 22.6 mmol/L Normal 21.0-32.0 [facility] Comment on above: Performed By: #### L 500.2500, L100.0500 ####[facility] [address] [place], [address] Creatinine [Mass/Vol] 0.95 mg/dL Normal 0.70-1.20 [facility] Comment on above: Performed By: #### L 500.2500, L100.0500 ####[facility] [address] [place], [address] ECRCL 108.71 ml/min Normal 50-250 [facility] Comment on above: Performed By: #### L 500.2500, L100.0500 ####[facility] [address] [place], [address] GAP 9 Normal 5-15 [facility] Comment on above: Performed By: #### L 500.2500, L100.0500 ####[facility] [address] [place], [address] GFR/1.73 sq M.predicted among non-blacks MDRD (S/P/Bld) [Vol rate/Area] 93 mL/min/{1.73_m2} Normal >60 [facility] Comment on above: Result Comment: mL/m in/1.73m2 CKD-EPI Creatinine Equation (2020) Performed By: #### L 500.2500, L100.0500 ####[facility] [address] [place], [address] Glucose [Mass/Vol] 143 mg/dL High 70-99 [facility] Comment on above: Performed By: #### L 500.2500, L100.0500 ####[facility] [address] [place], [address] Potassium [Moles/Vol] 3.9 mmol/L Normal 3.3-5.1 [facility] Comment on above: Performed By: #### L 500.2500, L100.0500 ####[facility] [address] [place], [address] Sodium [Moles/Vol] 133 mmol/L Normal 133-145 [facility] Comment on above: Performed By: #### L 500.2500, L100.0500 ####[facility] [address] [place], [address] Urea nitrogen [Mass/Vol] 10 mg/dL Normal 4-19 [facility] Comment on above: Performed By: #### L 500.2500, L100.0500 ####[facility] [address] [place], [address] Bedside Glucoseon 01-31-2025 FINGERSTICK GLU 129 mg/dL High 74-106 [facility] Comment on above: Result Comment: BRISA GEMENT OF PATIENT CARE PER NURSING PROTOCOL Performed By: #### L 501.080 ####[facility] [address] [place], [address] FINGERSTICK GLU 179 mg/dL High 74-106 [facility] Comment on above: Result Comment: BRISA GEMENT OF PATIENT CARE PER NURSING PROTOCOL Performed By: #### L 501.080 ####[facility] [address] [place], [address] FINGERSTICK GLU 149 mg/dL High 74-106 [facility] Comment on above: Result Comment: BRISA GEMENT OF PATIENT CARE PER NURSING PROTOCOL Performed By: #### L 501.080 ####[facility] [address] [place], [address] CBC-Complete Blood Cnt No Di ffon 01-31-2025 Erythrocyte distribution width (RBC) [Ratio] 17.7 % High 11.6-14.6 [facility] [facility] Comment on above: Performed By: #### L 500.2500, L100.0500 ####[facility] [address] [place], [address] Hematocrit (Bld) [Volume fraction] 23.8 % Low 40-54 [facility] Comment on above: Performed By: #### L 500.2500, L100.0500 ####[facility] [address] [place], [address] Hemoglobin (Bld) [Mass/Vol] 7.9 g/dL Low 13.0-16.5 [facility] Comment on above: Performed By: #### L 500.2500, L100.0500 ####[facility] [address] [place], [address] MCH (RBC) [Entitic mass] 29.8 pg Normal 27.0-32.0 [facility] Comment on above: Performed By: #### L 500.2500, L100.0500 ####[facility] [address] [place], [address] MCHC (RBC) [Mass/Vol] 33.2 g/dL Normal 32-36 [facility] Comment on above: Performed By: #### L 500.2500, L100.0500 ####[facility] [address] [place], [address] MCV (RBC) [Entitic vol] 89.8 fL Normal 80-94 [facility] Comment on above: Performed By: #### L 500.2500, L100.0500 ####[facility] [address] [place], [address] Platelet mean volume (Bld) [Entitic vol] 10.6 fL Normal 6.2-12.0 [facility] Comment on above: Performed By: #### L 500.2500, L100.0500 ####[facility] [address] [place], [address] Platelets (Bld) [#/Vol] 108 10*3/uL Low 150-450 [facility] Comment on above: Performed By: #### L 500.2500, L100.0500 ####[facility] [address] [place], [address] RBC (Bld) [#/Vol] 2.65 10*6/uL Low 4.6-6.2 [facility] Comment on above: Performed By: #### L 500.2500, L100.0500 ####[facility] [address] [place], [address] RDW SD 56.9 fl High 35.1-43.9 [facility] Comment on above: Performed By: #### L 500.2500, L100.0500 ####[facility] [address] [place], [address] WBC (Bld) [#/Vol] 5.9 10*3/uL Normal 4.4-11.0 [facility] Comment on above: Performed By: #### L 500.2500, L100.0500 ####[facility] [address] [place], [address] Carbon dioxide, total [Moles /volume] in Central venous bloodOrdered By: Yaritza Leo on 01-31-2025 CO2 [Moles/Vol] 22.6 mmol/L 21.0-32.0 [facility] Chloride assayOrdered By: Raad Leo on 01-31-2025 Chloride [Moles/Vol] 102 mmol/L 98-108 [facility] Erythrocyte distribution wid th ratioOrdered By: Yaritza Leo on 01-31-2025 Erythrocyte distribution width (RBC) [Ratio] 17.7 % High 11.6-14.6 [facility] Erythrocyte distribution wid th standard deviationOrdered By: Yaritza Leo on 01-31-2025 Erythrocyte distribution width (RBC) [Ratio] 56.9 fl High 35.1-43.9 [facility] Glomerular filtration rate ( GFR) estimation/1.73 sq m using serum, plasma, or whole bOrdered By: Yaritza Leo on 01-31-2025 GFR/1.73 sq M.predicted among non-blacks MDRD (S/P/Bld) [Vol rate/Area] 93 mL/min/{1.73_m2} >60 [facility] Glucose measurement at [facility] deOrdered By: Yaritza Leo on 01-31-2025 Glucose [Mass/Vol] 129 mg/dL High 74-106 [facility] Hematocrit Auto (Bld) [Volum e fraction]Ordered By: Yaritza Leo on 01-31-2025 Hematocrit (Bld) [Volume fraction] 23.8 % Low 40-54 [facility] Hemoglobin measurementOrdere d By: Yaritza Leo on 01-31-2025 Hemoglobin (Bld) [Mass/Vol] 7.9 g/dL Low 13.0-16.5 [facility] MCV (mean corpuscular volume ) determinationOrdered By: Yaritza Leo on 01-31-2025 MCV (RBC) [Entitic vol] 89.8 fL 80-94 [facility] Mean corpuscular hemoglobin (MCH) determinationOrdered By: Yaritza Leo on 01-31-2025 MCH (RBC) [Entitic mass] 29.8 pg 27.0-32.0 [facility] Platelet countOrdered By: Raad Leo on 01-31-2025 Platelets (Bld) [#/Vol] 108 10*3/uL Low 150-450 [facility] Potassium measurement (mass/ volume)Ordered By: Yaritza Leo on 01-31-2025 Potassium (Unsp spec) [Mass/Vol] 3.9 mmol/L 3.3-5.1 [facility] RBC Auto (Bld) [#/Vol]Ordere d By: Yaritza Leo on 01-31-2025 RBC (Bld) [#/Vol] 2.65 10*6/uL Low 4.6-6.2 [facility] Serum creatinine measurement (mass/volume)Ordered By: Yaritza Leo on 01-31-2025 Creatinine [Mass/Vol] 0.95 mg/dL 0.70-1.20 [facility] Serum glucose measurement (m ass/volume)Ordered By: Yaritza Leo on 01-31-2025 Glucose [Mass/Vol] 143 mg/dL High 70-99 [facility] Serum or plasma calcium roosevelt urement (mass/volume)Ordered By: Yaritza Leo on 01-31-2025 Calcium [Mass/Vol] 8.5 mg/dL 7.6-11.0 [facility] Serum or plasma urea nitroge n measurement (mass/volume)Ordered By: Yaritza Leo on 01-31-2025 Urea nitrogen [Mass/Vol] 10 mg/dL 4-19 [facility] Sodium levelOrdered By: Saritha Leo on 01-31-2025 Sodium [Moles/Vol] 133 mmol/L 133-145 [facility] White blood cell (WBC) count Ordered By: Yaritza Leo on 01-31-2025 WBC (Bld) [#/Vol] 5.9 10*3/uL 4.4-11.0 [facility] Absolute lymphocyte countOrd ered By: Yaritza Leo on 01-30-2025 Lymphocytes Auto (Unsp spec) [#/Vol] 1.08 10*3/uL 0.83-4.51 [facility] Automated lymphocyte count a s percentage of total leukocytesOrdered By: Yaritza Leo on 01-30-2025 Lymphocytes/100 WBC Auto (Unsp spec) 20.0 % 19-41 [facility] Basic Metabolic Profile (BMP )on 01-30-2025 BUN/CRE 10.1 RATIO Normal 10-20 [facility] Comment on above: Performed By: #### L 501.5200, L500.2500, L501.2300, L100.0100 ####[facility] [address] [place], [address] Calcium [Mass/Vol] 8.4 mg/dL Normal 7.6-11.0 [facility] Comment on above: Performed By: #### L 501.5200, L500.2500, L501.2300, L100.0100 ####[facility] [address] [place], [address] Chloride [Moles/Vol] 101 mmol/L Normal 98-108 [facility] Comment on above: Performed By: #### L 501.5200, L500.2500, L501.2300, L100.0100 ####[facility] [address] [place], [address] CO2 [Moles/Vol] 17.3 mmol/L Low 21.0-32.0 [facility] Comment on above: Performed By: #### L 501.5200, L500.2500, L501.2300, L100.0100 ####[facility] [address] [place], [address] Creatinine [Mass/Vol] 0.93 mg/dL Normal 0.70-1.20 [facility] Comment on above: Performed By: #### L 501.5200, L500.2500, L501.2300, L100.0100 ####[facility] [address] [place], [address] ECRCL 111.05 ml/min Normal 50-250 [facility] Comment on above: Performed By: #### L 501.5200, L500.2500, L501.2300, L100.0100 ####[facility] [address] [place], [address] GAP 13 Normal 5-15 [facility] Comment on above: Performed By: #### L 501.5200, L500.2500, L501.2300, L100.0100 ####[facility] [address] [place], [address] GFR/1.73 sq M.predicted among non-blacks MDRD (S/P/Bld) [Vol rate/Area] 95 mL/min/{1.73_m2} Normal >60 [facility] Comment on above: Result Comment: mL/m in/1.73m2 CKD-EPI Creatinine Equation (2020) Performed By: #### L 501.5200, L500.2500, L501.2300, L100.0100 ####[facility] [address] [place], [address] Glucose [Mass/Vol] 139 mg/dL High 70-99 [facility] Comment on above: Performed By: #### L 501.5200, L500.2500, L501.2300, L100.0100 ####[facility] [address] [place], [address] Potassium [Moles/Vol] 3.5 mmol/L Normal 3.3-5.1 [facility] Comment on above: Result Comment: Hemo lysis present, Results??could be affected.?? Performed By: #### L 501.5200, L500.2500, L501.2300, L100.0100 ####[facility] [address] [place], [address] Sodium [Moles/Vol] 131 mmol/L Low 133-145 [facility] Comment on above: Performed By: #### L 501.5200, L500.2500, L501.2300, L100.0100 ####[facility] [address] [place], [address] Urea nitrogen [Mass/Vol] 9 mg/dL Normal 4-19 [facility] Comment on above: Performed By: #### L 501.5200, L500.2500, L501.2300, L100.0100 ####[facility] [address] [place], [address] Basophil percentageOrdered B y: Yaritza Leo on 01-30-2025 Basophils/100 WBC (Bld) 0.7 % Normal 0-1 [facility] Comment on above: Performed By: #### L 501.5200, L500.2500, L501.2300, L100.0100 ####[facility] [address] [place], [address] Bedside Glucoseon 01-30-2025 FINGERSTICK GLU 170 mg/dL High 74-106 [facility] Comment on above: Result Comment: BRISA GEMENT OF PATIENT CARE PER NURSING PROTOCOL Performed By: #### L 501.080 ####[facility] [address] [place], [address] FINGERSTICK GLU 122 mg/dL High -106 [facility] Comment on above: Result Comment: BRISA GEMENT OF PATIENT CARE PER NURSING PROTOCOL Performed By: #### L 501.080 ####[facility] [address] [place], [address] FINGERSTICK GLU 119 mg/dL High -106 [facility] Comment on above: Result Comment: BRISA GEMENT OF PATIENT CARE PER NURSING PROTOCOL Performed By: #### L 501.080 ####[facility] [address] [place], [address] FINGERSTICK GLU 116 mg/dL High [facility]106 [facility] Comment on above: Result Comment: BRISA GEMENT OF PATIENT CARE PER NURSING PROTOCOL Performed By: #### L 501.080 ####[facility] [address] [place], [address] CBC W/Diff, Automatedon 06- Absolute Lymph 1.08 X10 3/uL Normal 0.83-4.51 [facility] Comment on above: Performed By: #### L 501.5200, L500.2500, L501.2300, L100.0100 ####[facility] [address] [place], [address] Absolute Neut 2.9 X10 3/uL Normal 2.0-7.7 [facility] Comment on above: Performed By: #### L 501.5200, L500.2500, L501.2300, L100.0100 ####[facility] [address] [place], [address] Erythrocyte distribution width (RBC) [Ratio] 18.1 % High 11.6-14.6 [facility] Comment on above: Performed By: #### L 501.5200, L500.2500, L501.2300, L100.0100 ####[facility] [address] [place], [address] Hematocrit (Bld) [Volume fraction] 24.1 % Low 40-54 [facility] Comment on above: Performed By: #### L 501.5200, L500.2500, L501.2300, L100.0100 ####[facility] [address] [place], [address] Hemoglobin (Bld) [Mass/Vol] 7.7 g/dL Low 13.0-16.5 [facility] Comment on above: Performed By: #### L 501.5200, L500.2500, L501.2300, L100.0100 ####[facility] [address] [place], [address] IG% 0.600 Normal 0.0-0.9 [facility] Comment on above: Result Comment: IG% - Immature Granulocytes (promyelocytes, myelocytes andmetamyelocytes) > 1% indicates that a LEFT SHIFT is Present. Performed By: #### L 501.5200, L500.2500, L501.2300, L100.0100 ####[facility] [address] [place], [address] Lymphocytes/100 WBC (Bld) 20.0 % Normal 19-41 [facility] Comment on above: Performed By: #### L 501.5200, L500.2500, L501.2300, L100.0100 ####[facility] [address] [place], [address] MCH (RBC) [Entitic mass] 29.2 pg Normal 27.0-32.0 [facility] Comment on above: Performed By: #### L 501.5200, L500.2500, L501.2300, L100.0100 ####[facility] [address] [place], [address] MCHC (RBC) [Mass/Vol] 32.0 g/dL Normal 32-36 [facility] Comment on above: Performed By: #### L 501.5200, L500.2500, L501.2300, L100.0100 ####[facility] [address] [place], [address] MCV (RBC) [Entitic vol] 91.3 fL Normal 80-94 [facility] Comment on above: Performed By: #### L 501.5200, L500.2500, L501.2300, L100.0100 ####[facility] [address] [place], [address] Nucleated RBC (Bld) [#/Vol] 0 10*3/uL Normal 0-5 [facility] Comment on above: Performed By: #### L 501.5200, L500.2500, L501.2300, L100.0100 ####[facility] [address] [place], [address] Platelet mean volume (Bld) [Entitic vol] 10.5 fL Normal 6.2-12.0 [facility] Comment on above: Performed By: #### L 501.5200, L500.2500, L501.2300, L100.0100 ####[facility] [address] [place], [address] Platelets (Bld) [#/Vol] 108 10*3/uL Low 150-450 [facility] Comment on above: Performed By: #### L 501.5200, L500.2500, L501.2300, L100.0100 ####[facility] [address] [place], [address] RBC (Bld) [#/Vol] 2.64 10*6/uL Low 4.6-6.2 [facility] Comment on above: Performed By: #### L 501.5200, L500.2500, L501.2300, L100.0100 ####[facility] [address] [place], [address] RDW SD 61.1 fl High 35.1-43.9 [facility] Comment on above: Performed By: #### L 501.5200, L500.2500, L501.2300, L100.0100 ####[facility] [address] [place], [address] WBC (Bld) [#/Vol] 5.4 10*3/uL Normal 4.4-11.0 [facility] Comment on above: Performed By: #### L 501.5200, L500.2500, L501.2300, L100.0100 ####[facility] [address] [place], [address] Eosinophil percentageOrdered By: Yaritza Leo on 01-30-2025 Eosinophils/100 WBC (Bld) 7.0 % High 0-5 [facility] Comment on above: Performed By: #### L 501.5200, L500.2500, L501.2300, L100.0100 ####[facility] [address] [place], [address] Immature granulocytes/100 WB C Auto (Bld)Ordered By: Yaritza Leo on 01-30-2025 Immature granulocytes/100 WBC (Bld) 0.600 % 0.0-0.9 [facility] Magnesiumon 01-30-2025 Magnesium [Mass/Vol] 1.7 mg/dL Normal 1.5-2.2 [facility] Comment on above: Performed By: #### L 501.5200, L500.2500, L501.2300, L100.0100 ####[facility] [address] [place], [address] Magnesium measurement (mass/ volume)Ordered By: Yaritza Leo on 01-30-2025 Magnesium (Unsp spec) [Mass/Vol] 1.7 mg/dL 1.5-2.2 [facility] Monocyte percentageOrdered B y: Yaritza Leo on 01-30-2025 Monocytes/100 WBC (Bld) 18.5 % High 0-10 [facility] Comment on above: Performed By: #### L 501.5200, L500.2500, L501.2300, L100.0100 ####[facility] [address] [place], [address] Neutrophil percentageOrdered By: Yaritza Leo on 01-30-2025 Neutrophils/100 WBC (Bld) 53.2 % Normal 47-70 [facility] Comment on above: Performed By: #### L 501.5200, L500.2500, L501.2300, L100.0100 ####[facility] [address] [place], [address] Phosphoruson 01-30-2025 Phosphate [Mass/Vol] 2.7 mg/dL Normal 2.7-4.5 [facility] Comment on above: Performed By: #### L 501.5200, L500.2500, L501.2300, L100.0100 ####[facility] [address] [place], [address] Urine Cultureon 01-30-2025 URC Normal [facility] Comment on above: Performed By: #### M 100.2200 ####[facility] [address] [place], [address] Bedside Glucoseon 01-29-2025 FINGERSTICK GLU 174 mg/dL High 74-106 [facility] Comment on above: Result Comment: BRISA RASHAWN OF PATIENT CARE PER NURSING PROTOCOL Performed By: #### L 501.080 ####[facility] [address] [place], [address] FINGERSTICK GLU 163 mg/dL High 74-106 [facility] Comment on above: Result Comment: BRISA GEMENT OF PATIENT CARE PER NURSING PROTOCOL Performed By: #### L 501.080 ####[facility] [address] [place], [address] FINGERSTICK GLU 196 mg/dL High 74-106 [facility] Comment on above: Result Comment: BRISA GEMENT OF PATIENT CARE PER NURSING PROTOCOL Performed By: #### L 501.080 ####[facility] [address] [place], [address] FINGERSTICK GLU 237 mg/dL High -106 [facility] Comment on above: Result Comment: BRISA GEMENT OF PATIENT CARE PER NURSING PROTOCOL Performed By: #### L 501.080 ####[facility] [address] [place], [address] FINGERSTICK GLU 172 mg/dL High -106 [facility] Comment on above: Result Comment: BRISA GEMENT OF PATIENT CARE PER NURSING PROTOCOL Performed By: #### L 501.080 ####[facility] [address] [place], [address] Bilirubin, totalOrdered By: Boone Izquierdo on 01-29-2025 Bilirubin [Mass/Vol] 1.81 mg/dL High 0.00-1.30 [facility] CBC W/Diff, Automatedon 01-03 Absolute Lymph 0.83 X10 3/uL Normal 0.83-4.51 [facility] Comment on above: Performed By: #### L 500.4050, L100.0100 ####[facility] [address] [place], [address] Absolute Neut 3.0 X10 3/uL Normal 2.0-7.7 [facility] Comment on above: Performed By: #### L 500.4050, L100.0100 ####[facility] [address] [place], [address] Basophils/100 WBC (Bld) 0.8 % Normal 0-1 [facility] Comment on above: Performed By: #### L 500.4050, L100.0100 ####[facility] [address] [place], [address] Eosinophils/100 WBC (Bld) 5.3 % High 0-5 [facility] Comment on above: Performed By: #### L 500.4050, L100.0100 ####[facility] [address] [place], [address] Erythrocyte distribution width (RBC) [Ratio] 18.4 % High 11.6-14.6 [facility] Comment on above: Performed By: #### L 500.4050, L100.0100 ####[facility] [address] [place], [address] Hematocrit (Bld) [Volume fraction] 24.8 % Low 40-54 [facility] Comment on above: Performed By: #### L 500.4050, L100.0100 ####[facility] [address] [place], [address] Hemoglobin (Bld) [Mass/Vol] 8.1 g/dL Low 13.0-16.5 [facility] Comment on above: Performed By: #### L 500.4050, L100.0100 ####[facility] [address] [place], [address] IG% 0.800 Normal 0.0-0.9 [facility] Comment on above: Result Comment: IG% - Immature Granulocytes (promyelocytes, myelocytes andmetamyelocytes) > 1% indicates that a LEFT SHIFT is Present. Performed By: #### L 500.4050, L100.0100 ####[facility] [address] [place], [address] Lymphocytes/100 WBC (Bld) 17.1 % Low 19-41 [facility] Comment on above: Performed By: #### L 500.4050, L100.0100 ####[facility] [address] [place], [address] MCH (RBC) [Entitic mass] 29.6 pg Normal 27.0-32.0 [facility] Comment on above: Performed By: #### L 500.4050, L100.0100 ####[facility] [address] [place], [address] MCHC (RBC) [Mass/Vol] 32.7 g/dL Normal 32-36 [facility] Comment on above: Performed By: #### L 500.4050, L100.0100 ####[facility] [address] [place], [address] MCV (RBC) [Entitic vol] 90.5 fL Normal 80-94 [facility] Comment on above: Performed By: #### L 500.4050, L100.0100 ####[facility] [address] [place], [address] Monocytes/100 WBC (Bld) 15.2 % High 0-10 [facility] Comment on above: Performed By: #### L 500.4050, L100.0100 ####[facility] [address] [place], [address] Neutrophils/100 WBC (Bld) 60.8 % Normal 47-70 [facility] Comment on above: Performed By: #### L 500.4050, L100.0100 ####[facility] [address] [place], [address] Nucleated RBC (Bld) [#/Vol] 0 10*3/uL Normal 0-5 [facility] Comment on above: Performed By: #### L 500.4050, L100.0100 ####[facility] [address] [place], [address] Platelet mean volume (Bld) [Entitic vol] 11.6 fL Normal 6.2-12.0 [facility] Comment on above: Performed By: #### L 500.4050, L100.0100 ####[facility] [address] [place], [address] Platelets (Bld) [#/Vol] 120 10*3/uL Low 150-450 [facility] Comment on above: Performed By: #### L 500.4050, L100.0100 ####[facility] [address] [place], [address] RBC (Bld) [#/Vol] 2.74 10*6/uL Low 4.6-6.2 [facility] Comment on above: Performed By: #### L 500.4050, L100.0100 ####[facility] [address] [place], [address] RDW SD 60.7 fl High 35.1-43.9 [facility] Comment on above: Performed By: #### L 500.4050, L100.0100 ####[facility] [address] [place], [address] WBC (Bld) [#/Vol] 4.9 10*3/uL Normal 4.4-11.0 [facility] Comment on above: Performed By: #### L 500.4050, L100.0100 ####[facility] [address] [place], [address] Comprehensive Metabolic Prof [facility] 01-29-2025 Albumin [Mass/Vol] 2.3 g/dL Low 3.5-5.0 [facility] Comment on above: Performed By: #### L 500.4050, L100.0100 ####[facility] [address] [place], [address] Albumin/Globulin [Mass ratio] 0.8 {ratio} Low 0.9-2.4 [facility] Comment on above: Performed By: #### L 500.4050, L100.0100 ####[facility] [address] [place], [address] ALK PHOS 180 U/L High 40-129 [facility] Comment on above: Performed By: #### L 500.4050, L100.0100 ####[facility] [address] [place], [address] ALT [Catalytic activity/Vol] 30 U/L Normal <=46 [facility] Comment on above: Performed By: #### L 500.4050, L100.0100 ####[facility] [address] [place], [address] AST [Catalytic activity/Vol] 52 U/L High <=37 [facility] Comment on above: Performed By: #### L 500.4050, L100.0100 ####[facility] [address] [place], [address] Bilirubin [Mass/Vol] 1.81 mg/dL High 0.00-1.30 [facility] Comment on above: Performed By: #### L 500.4050, L100.0100 ####[facility] [address] [place], [address] BUN/CRE 11.6 RATIO Normal 10-20 [facility] Comment on above: Performed By: #### L 500.4050, L100.0100 ####[facility] [address] [place], [address] Calcium [Mass/Vol] 8.8 mg/dL Normal 7.6-11.0 [facility] Comment on above: Performed By: #### L 500.4050, L100.0100 ####[facility] [address] [place], [address] Chloride [Moles/Vol] 100 mmol/L Normal 98-108 [facility] Comment on above: Performed By: #### L 500.4050, L100.0100 ####[facility] [address] [place], [address] CO2 [Moles/Vol] 19.5 mmol/L Low 21.0-32.0 [facility] Comment on above: Performed By: #### L 500.4050, L100.0100 ####[facility] [address] [place], [address] Creatinine [Mass/Vol] 1.09 mg/dL Normal 0.70-1.20 [facility] Comment on above: Performed By: #### L 500.4050, L100.0100 ####[facility] [address] [place], [address] ECRCL 94.75 ml/min Normal 50-250 [facility] Comment on above: Performed By: #### L 500.4050, L100.0100 ####[facility] [address] [place], [address] GAP 14 Normal 5-15 [facility] Comment on above: Performed By: #### L 500.4050, L100.0100 ####[facility] [address] [place], [address] GFR/1.73 sq M.predicted among non-blacks MDRD (S/P/Bld) [Vol rate/Area] 79 mL/min/{1.73_m2} Normal >60 [facility] Comment on above: Result Comment: mL/m in/1.73m2 CKD-EPI Creatinine Equation (2020) Performed By: #### L 500.4050, L100.0100 ####[facility] [address] [place], [address] Globulin (S) [Mass/Vol] 3.1 g/dL Normal 2.2-4.2 [facility] Comment on above: Performed By: #### L 500.4050, L100.0100 ####[facility] [address] [place], [address] Glucose [Mass/Vol] 265 mg/dL High 70-99 [facility] Comment on above: Performed By: #### L 500.4050, L100.0100 ####[facility] [address] [place], [address] Potassium [Moles/Vol] 3.5 mmol/L Normal 3.3-5.1 [facility] Comment on above: Performed By: #### L 500.4050, L100.0100 ####[facility] [address] [place], [address] Sodium [Moles/Vol] 133 mmol/L Normal 133-145 [facility] Comment on above: Performed By: #### L 500.4050, L100.0100 ####[facility] [address] [place], [address] T PROT 5.4 g/dL Low 5.9-8.4 [facility] Comment on above: Performed By: #### L 500.4050, L100.0100 ####[facility] [address] [place], [address] Urea nitrogen [Mass/Vol] 13 mg/dL Normal 4-19 [facility] Comment on above: Performed By: #### L 500.4050, L100.0100 ####[facility] [address] [place], [address] No Panel InformationOrdered By: Boone Izquierdo on 01-29-2025 52 U/L High <38 [facility] Serum globulin measurementOr dered By: Boone Izquierdo on 01-29-2025 Globulin (S) [Mass/Vol] 3.1 g/dL 2.2-4.2 [facility] Serum or plasma alanine thomas otransferase (ALT) measurementOrdered By: Boone Izquierdo on 01-29-2025 ALT [Catalytic activity/Vol] 30 U/L <47 [facility] Serum or plasma albumin roosevelt urement (mass/volume)Ordered By: Boone Izquierdo on 01-29-2025 Albumin [Mass/Vol] 2.3 g/dL Low 3.5-5.0 [facility] Serum or plasma albumin/glob ulin mass ratioOrdered By: Boone Izquierdo on 01-29-2025 Albumin/Globulin [Mass ratio] 0.8 {ratio} Low 0.9-2.4 [facility] Serum or plasma alkaline kendrick sphatase measurementOrdered By: Boone Izquierdo on 01-29-2025 ALP [Catalytic activity/Vol] 180 U/L High 40-129 [facility] Total proteinOrdered By: Danita Izquierdo on 01-29-2025 Protein [Mass/Vol] 5.4 g/dL Low 5.9-8.4 [facility] Abdomen/Pelvis W IV Cont ONL Yon 01-28-2025 Abdomen/Pelvis W IV Cont ONLY Normal [facility] Absolute lymphocyte countOrd ered By: Danny Hutton on 01-28-2025 Lymphocytes Auto (Unsp spec) [#/Vol] 0.98 10*3/uL 0.83-4.51 [facility] Activated partial thrombopla stin time (aPTT) in platelet poor plasma by coagulation aOrdered By: Danny Hutton on 01-28-2025 aPTT Coag (PPP) [Time] 38.4 s High 24.1-36.2 [facility] Ammoniaon 01-28-2025 Ammonia (P) [Moles/Vol] 108.0 umol/L High 16-60 [facility] Comment on above: Order Comment: ROSIO Gupta PREVIOUS SPECIMEN REJECTED DUE TOHEMOLYSIS. 01/28/25 [address]. Performed By: #### L 503.5510 ####[facility] [address] [place], [place], [phone] Anion gap in Serum or Plasma Ordered By: Danny Hutton on 01-28-2025 Anion gap [Moles/Vol] 14 mmol/L 5-15 [facility] Automated lymphocyte count a s percentage of total leukocytesOrdered By: Danny Hutton on 01-28-2025 Lymphocytes/100 WBC Auto (Unsp spec) 18.8 % Low 19-41 [facility] BUN/creatinine ratioOrdered By: Danny Hutton on 01-28-2025 Urea nitrogen/Creatinine [Mass ratio] 12.8 mg/mg 10- [facility] Basic Metabolic Profile (BMP )on 01-28-2025 CO2 [Moles/Vol] 22.1 mmol/L Normal 21.0-32.0 [facility] Comment on above: Performed By: #### L 500.3400, L500.2500, L501.2450, L503.6005, L300.3900, L501.5200, L300.4310, L501.4021, L100.0100, L503.7505 ####[facility] [address] [place], [place], [id number] GAP 14 Normal - [facility] Comment on above: Performed By: #### L 500.3400, L500.2500, L501.2450, L503.6005, L300.3900, L501.5200, L300.4310, L501.4021, L100.0100, L503.7505 ####[facility] [address] [place], [place], [phone] Basophil percentageOrdered B y: Danny Hutton on 01-28-2025 Basophils/100 WBC (Bld) 0.8 % 0-1 [facility] Bedside Glucoseon 01-28-2025 FINGERSTICK GLU 102 mg/dL Normal 74-106 [facility] Comment on above: Result Comment: BRISA GEMENT OF PATIENT CARE PER NURSING PROTOCOL Performed By: #### L 501.080 ####[facility] [address] [place], [place], [phone] FINGERSTICK GLU 96 mg/dL Normal 74-106 [facility] Comment on above: Result Comment: BRISA GEMENT OF PATIENT CARE PER NURSING PROTOCOL Performed By: #### L 501.080 ####[facility] [address] [place], [address] Bilirubin Test strip Ql (U)O rdered By: Danny Hutton on 01-28-2025 Bilirubin Ql (U) Negative Negative [facility] Bilirubin directOrdered By: Danny Hutton on 01-28-2025 Bilirubin.direct [Mass/Vol] 1.04 mg/dL High 0.00-0.30 [facility] Bilirubin, totalOrdered By: Danny Hutton on 01-28-2025 Bilirubin [Mass/Vol] 1.91 mg/dL High 0.00-1.30 [facility] Blood cultureOrdered By: Silvano Hutton on 01-28-2025 Bacteria identified Cx Nom (Bld) No growth in 5 days. [facility] Bacteria identified Cx Nom (Bld) No growth in 5 days. [facility] CBC W/Diff, Automatedon 01-03 Absolute Lymph 0.98 X10 3/uL Normal 0.83-4.51 [facility] Comment on above: Performed By: #### L 500.3400, L500.2500, L501.2450, L503.6005, L300.3900, L501.5200, L300.4310, L501.4021, L100.0100, L503.7505 ####[facility] [address] [place], [address] Absolute Neut 3.0 X10 3/uL Normal 2.0-7.7 [facility] Comment on above: Performed By: #### L 500.3400, L500.2500, L501.2450, L503.6005, L300.3900, L501.5200, L300.4310, L501.4021, L100.0100, L503.7505 ####[facility] [address] [place], [address] Basophils/100 WBC (Bld) 0.8 % Normal 0-1 [facility] Comment on above: Performed By: #### L 500.3400, L500.2500, L501.2450, L503.6005, L300.3900, L501.5200, L300.4310, L501.4021, L100.0100, L503.7505 ####[facility] [address] [place], [phone] Eosinophils/100 WBC (Bld) 4.6 % Normal 0-5 [facility] Comment on above: Performed By: #### L 500.3400, L500.2500, L501.2450, L503.6005, L300.3900, L501.5200, L300.4310, L501.4021, L100.0100, L503.7505 ####[facility] [address] [facility] [place], [place], [phone] Erythrocyte distribution width (RBC) [Ratio] 18.4 % High 11.6-14.6 [facility] Comment on above: Performed By: #### L 500.3400, L500.2500, L501.2450, L503.6005, L300.3900, L501.5200, L300.4310, L501.4021, L100.0100, L503.7505 ####[facility] [address] [place], [address] Hematocrit (Bld) [Volume fraction] 25.2 % Low 40-54 [facility] Comment on above: Performed By: #### L 500.3400, L500.2500, L501.2450, L503.6005, L300.3900, L501.5200, L300.4310, L501.4021, L100.0100, L503.7505 ####[facility] [address] [place], [address] Hemoglobin (Bld) [Mass/Vol] 8.3 g/dL Low 13.0-16.5 [facility] Comment on above: Performed By: #### L 500.3400, L500.2500, L501.2450, L503.6005, L300.3900, L501.5200, L300.4310, L501.4021, L100.0100, L503.7505 ####[facility] [address] [place], [address] IG% 1.300 High 0.0-0.9 [facility] Comment on above: Result Comment: IG% - Immature Granulocytes (promyelocytes, myelocytes andmetamyelocytes) > 1% indicates that a LEFT SHIFT is Present. Performed By: #### L 500.3400, L500.2500, L501.2450, L503.6005, L300.3900, L501.5200, L300.4310, L501.4021, L100.0100, L503.7505 ####[facility] [address] [place], [address] Lymphocytes/100 WBC (Bld) 18.8 % Low 19-41 [facility] Comment on above: Performed By: #### L 500.3400, L500.2500, L501.2450, L503.6005, L300.3900, L501.5200, L300.4310, L501.4021, L100.0100, L503.7505 ####[facility] [address] [place], [address] MCH (RBC) [Entitic mass] 29.4 pg Normal 27.0-32.0 [facility] Comment on above: Performed By: #### L 500.3400, L500.2500, L501.2450, L503.6005, L300.3900, L501.5200, L300.4310, L501.4021, L100.0100, L503.7505 ####[facility] [address] [place], [address] MCHC (RBC) [Mass/Vol] 32.9 g/dL Normal 32-36 [facility] Comment on above: Performed By: #### L 500.3400, L500.2500, L501.2450, L503.6005, L300.3900, L501.5200, L300.4310, L501.4021, L100.0100, L503.7505 ####[facility] [address] [place], [address] MCV (RBC) [Entitic vol] 89.4 fL Normal 80-94 [facility] Comment on above: Performed By: #### L 500.3400, L500.2500, L501.2450, L503.6005, L300.3900, L501.5200, L300.4310, L501.4021, L100.0100, L503.7505 ####[facility] [address] [place], [address] Monocytes/100 WBC (Bld) 16.7 % High 0-10 [facility] Comment on above: Performed By: #### L 500.3400, L500.2500, L501.2450, L503.6005, L300.3900, L501.5200, L300.4310, L501.4021, L100.0100, L503.7505 ####[facility] [address] [place], [address] Neutrophils/100 WBC (Bld) 57.8 % Normal 47-70 [facility] Comment on above: Performed By: #### L 500.3400, L500.2500, L501.2450, L503.6005, L300.3900, L501.5200, L300.4310, L501.4021, L100.0100, L503.7505 ####[facility] [address] [place], [address] Nucleated RBC (Bld) [#/Vol] 0 10*3/uL Normal 0-5 [facility] Comment on above: Performed By: #### L 500.3400, L500.2500, L501.2450, L503.6005, L300.3900, L501.5200, L300.4310, L501.4021, L100.0100, L503.7505 ####[facility] [address] [place], [address] Platelet mean volume (Bld) [Entitic vol] 11.5 fL Normal 6.2-12.0 [facility] Comment on above: Performed By: #### L 500.3400, L500.2500, L501.2450, L503.6005, L300.3900, L501.5200, L300.4310, L501.4021, L100.0100, L503.7505 ####[facility] [address] [place], [address] Platelets (Bld) [#/Vol] 115 10*3/uL Low 150-450 [facility] Comment on above: Performed By: #### L 500.3400, L500.2500, L501.2450, L503.6005, L300.3900, L501.5200, L300.4310, L501.4021, L100.0100, L503.7505 ####[facility] [address] [place], [address] RBC (Bld) [#/Vol] 2.82 10*6/uL Low 4.6-6.2 [facility] Comment on above: Performed By: #### L 500.3400, L500.2500, L501.2450, L503.6005, L300.3900, L501.5200, L300.4310, L501.4021, L100.0100, L503.7505 ####[facility] [address] [place], [address] RDW SD 60.7 fl High 35.1-43.9 [facility] Comment on above: Performed By: #### L 500.3400, L500.2500, L501.2450, L503.6005, L300.3900, L501.5200, L300.4310, L501.4021, L100.0100, L503.7505 ####[facility] [address] [facility] [place], [address] WBC (Bld) [#/Vol] 5.2 10*3/uL Normal 4.4-11.0 [facility] Comment on above: Performed By: #### L 500.3400, L500.2500, L501.2450, L503.6005, L300.3900, L501.5200, L300.4310, L501.4021, L100.0100, L503.7505 ####[facility] [address] [facility] [place], [place], [phone] Carbon dioxide, total [Moles /volume] in Central venous bloodOrdered By: Danny Hutton on 01-28-2025 CO2 [Moles/Vol] 22.1 mmol/L 21.0-32.0 [facility] Chest PA and Lateralon 01-28 Chest PA and Lateral Normal [facility] Chloride assayOrdered By: Darin Hutton on 01-28-2025 Chloride [Moles/Vol] 95 mmol/L Low 98-108 [facility] Emergency Department Summary on 01-28-2025 Emergency Department Summary Normal [facility] Eosinophil percentageOrdered By: Danny Hutton on 01-28-2025 Eosinophils/100 WBC (Bld) 4.6 % 0-5 [facility] Erythrocyte distribution wid th ratioOrdered By: Danny Hutton on 01-28-2025 Erythrocyte distribution width (RBC) [Ratio] 18.4 % High 11.6-14.6 [facility] Erythrocyte distribution wid th standard deviationOrdered By: Danny Barker on 01-28-2025 Erythrocyte distribution width (RBC) [Ratio] 60.7 fl High 35.1-43.9 [facility] Glomerular filtration rate ( GFR) estimation/1.73 sq m using serum, plasma, or whole bOrdered By: Danny Hutton on 01-28-2025 GFR/1.73 sq M.predicted among non-blacks MDRD (S/P/Bld) [Vol rate/Area] 73 mL/min/{1.73_m2} >60 [facility] H AND P Exam - Hospitaliston 01-28-2025 H&P Exam - Hospitalist Normal [facility] Hematocrit Auto (Bld) [Volum e fraction]Ordered By: Danny Hutton on 01-28-2025 Hematocrit (Bld) [Volume fraction] 25.2 % Low 40-54 [facility] Hemoglobin measurementOrdere d By: Danny Hutton on 01-28-2025 Hemoglobin (Bld) [Mass/Vol] 8.3 g/dL Low 13.0-16.5 [facility] Immature granulocytes/100 WB C Auto (Bld)Ordered By: Danny Hutton on 01-28-2025 Immature granulocytes/100 WBC (Bld) 1.300 % High 0.0-0.9 [facility] Influenza virus A and B and SARS-CoV-2 (COVID-19) and Respiratory syncytial virus RNAOrdered By: Danny Hutton on 01-28-2025 SARS-CoV-2 (COVID-19) RNA ANANTH+probe Ql (Unsp spec) [facility] Ketones Test strip Ql (U)Ord ered By: Danny Hutton on 01-28-2025 Ketones Ql (U) Negative Negative [facility] L499.0042on 01-28-2025 Trop T High Sen Normal <=22 [facility] Comment on above: Result Comment: Devonte goodwin via OM: Ordered Performed By: #### L 499.0042 ####[facility] [address] [place], [address] L501.4021on 01-28-2025 Trop T High Sen 13 ng/L Normal <=22 [facility] Comment on above: Performed By: #### L 500.3400, L500.2500, L501.2450, L503.6005, L300.3900, L501.5200, L300.4310, L501.4021, L100.0100, L503.7505 ####[facility] [address] [place], [address] L503.7505on 01-28-2025 Natriuretic peptide B (Bld) [Mass/Vol] 140 pg/mL Normal <=900 [facility] Comment on above: Result Comment: Hear t Failure Unlikely: < 300 pg/mLHeart Failure Likely< 50 Years: > 450 pg/mL50-75 Years: > 900 pg/mL>75 Years: > 1800 pg/mL Performed By: #### L 500.3400, L500.2500, L501.2450, L503.6005, L300.3900, L501.5200, L300.4310, L501.4021, L100.0100, L503.7505 ####[facility] [address] [place], [address] Lactic Acidon 01-28-2025 Lactate [Moles/Vol] 2.8 mmol/L Invalid Interpretation Code 0.0-2.0 [facility] Comment on above: Result Comment: Crit ical Result(s) Called at: 01/28/2025-09:07 by: Jennifer Marsh.??Results read back by same. Performed By: #### L 503.6005 ####[facility] [address] [place], [place], [phone] Lactate [Moles/Vol] 3.4 mmol/L Invalid Interpretation Code 0.0-2.0 [facility] Comment on above: Order Comment: Y Result Comment: Crit ical Result(s) Called at: 01/28/2025-04:24 by: Jennifer to Arianna Alva.??Results read back by same. Performed By: #### L 500.3400, L500.2500, L501.2450, L503.6005, L300.3900, L501.5200, L300.4310, L501.4021, L100.0100, L503.7505 ####[facility] [address] [place], [place], [phone] Lipaseon 01-28-2025 Lipase [Catalytic activity/Vol] 33 U/L Normal 13-75 [facility] Comment on above: Result Comment: Siddhartha bhat note:LIPASE revised reference range effective 22.New Lipase methodology. Expected to produce lower valuesthan the previous assay method.NEW Reference Range: 13 - 75 U/L Performed By: #### L 500.3400, L500.2500, L501.2450, L503.6005, L300.3900, L501.5200, L300.4310, L501.4021, L100.0100, L503.7505 ####[facility] [address] [place], [place], [phone] Liver Profileon 01-28-2025 Albumin [Mass/Vol] 2.5 g/dL Low 3.5-5.0 [facility] Comment on above: Performed By: #### L 500.3400, L500.2500, L501.2450, L503.6005, L300.3900, L501.5200, L300.4310, L501.4021, L100.0100, L503.7505 ####[facility] [address] [place], [place], [phone] ALK PHOS 201 U/L High 40-129 [facility] Comment on above: Performed By: #### L 500.3400, L500.2500, L501.2450, L503.6005, L300.3900, L501.5200, L300.4310, L501.4021, L100.0100, L503.7505 ####[facility] [address] [place], [place], [phone] ALT [Catalytic activity/Vol] 31 U/L Normal <=46 [facility] Comment on above: Performed By: #### L 500.3400, L500.2500, L501.2450, L503.6005, L300.3900, L501.5200, L300.4310, L501.4021, L100.0100, L503.7505 ####[facility] [address] [place], [place], [phone] AST [Catalytic activity/Vol] 58 U/L High <=37 [facility] Comment on above: Performed By: #### L 500.3400, L500.2500, L501.2450, L503.6005, L300.3900, L501.5200, L300.4310, L501.4021, L100.0100, L503.7505 ####[facility] [address] [place], [place], [phone] Bilirubin [Mass/Vol] 1.91 mg/dL High 0.00-1.30 [facility] Comment on above: Performed By: #### L 500.3400, L500.2500, L501.2450, L503.6005, L300.3900, L501.5200, L300.4310, L501.4021, L100.0100, L503.7505 ####[facility] [address] [place], [place], [phone] Bilirubin.direct [Mass/Vol] 1.04 mg/dL High 0.00-0.30 [facility] Comment on above: Performed By: #### L 500.3400, L500.2500, L501.2450, L503.6005, L300.3900, L501.5200, L300.4310, L501.4021, L100.0100, L503.7505 ####[facility] [address] [place], [address] Globulin (S) [Mass/Vol] 3.3 g/dL Normal 2.2-4.2 [facility] Comment on above: Performed By: #### L 500.3400, L500.2500, L501.2450, L503.6005, L300.3900, L501.5200, L300.4310, L501.4021, L100.0100, L503.7505 ####[facility] [address] [place], [place], [phone]) T PROT 5.9 g/dL Normal 5.9-8.4 [facility] Comment on above: Performed By: #### L 500.3400, L500.2500, L501.2450, L503.6005, L300.3900, L501.5200, L300.4310, L501.4021, L100.0100, L503.7505 ####[facility] [address] [place], [place], [phone] M100.678on 01-28-2025 M100.678 SARS-CoV-2 (COVID 19 ) Negative INFLUENZA A Negative INFLUENZA B Negative RSV PCR Negative Normal [facility] Comment on above: Performed By: #### M 100.678 ####[facility] [address] [place], [address] MCV (mean corpuscular volume ) determinationOrdered By: Danny Hutton on 01-28-2025 MCV (RBC) [Entitic vol] 89.4 fL 80-94 [facility] Magnesiumon 01-28-2025 Magnesium [Mass/Vol] 1.7 mg/dL Normal 1.5-2.2 [facility] Comment on above: Performed By: #### L 500.3400, L500.2500, L501.2450, L503.6005, L300.3900, L501.5200, L300.4310, L501.4021, L100.0100, L503.7505 ####[facility] [address] [place], [address] Magnesium measurement (mass/ volume)Ordered By: Danny Hutton on 01-28-2025 Magnesium (Unsp spec) [Mass/Vol] 1.7 mg/dL 1.5-2.2 [facility] Mean corpuscular hemoglobin (MCH) determinationOrdered By: Danny Hutton on 01-28-2025 MCH (RBC) [Entitic mass] 29.4 pg 27.0-32.0 [facility] Monocyte percentageOrdered B y: Danny Hutton on 01-28-2025 Monocytes/100 WBC (Bld) 16.7 % High 0-10 [facility] Mucus LM Ql (Urine sed)Order ed By: Danny Hutton on 01-28-2025 Mucus Ql (Urine sed) 0 SEEN /hpf [facility] Natriuretic peptide.B prohor prachi N-Terminal [Mass/volume] in Serum or PlasmaOrdered By: Danny Hutton on 01-28-2025 Natriuretic peptide.B prohormone N-Terminal [Mass/Vol] 140 pg/mL <900 [facility] Neutrophil percentageOrdered By: Dannyjersey Hutton on 01-28-2025 Neutrophils/100 WBC (Bld) 57.8 % 47-70 [facility] Nitrite Test strip Ql (U)Ord ered By: Danny Hutton on 01-28-2025 Nitrite Ql (U) Negative Negative [facility] No Panel InformationOrdered By: Danny Hutton on 01-28-2025 58 U/L High <38 [facility] Partial Thromboplast Timeon 01-28-2025 aPTT Coag (Bld) [Time] 38.4 s High 24.1-36.2 [facility] Comment on above: Performed By: #### L 500.3400, L500.2500, L501.2450, L503.6005, L300.3900, L501.5200, L300.4310, L501.4021, L100.0100, L503.7505 ####[facility] [address] [place], [place], [phone] Platelet countOrdered By: Darin Hutton on 01-28-2025 Platelets (Bld) [#/Vol] 115 10*3/uL Low 150-450 [facility] Potassium measurement (mass/ volume)Ordered By: Danny Hutton on 01-28-2025 Potassium (Unsp spec) [Mass/Vol] 3.4 mmol/L 3.3-5.1 [facility] Protein Test strip Ql (U)Ord ered By: Danny Jack on 01-28-2025 Protein Ql (U) 100 mg/dl High Negative [facility] Prothrombin Time w/INRon INR Coag (PPP) [Relative time] 1.7 {INR} Normal [facility] Comment on above: Performed By: #### L 500.3400, L500.2500, L501.2450, L503.6005, L300.3900, L501.5200, L300.4310, L501.4021, L100.0100, L503.7505 ####[facility] [address] [place], [address] PT Coag (PPP) [Time] 20.0 s High 11.7-14.9 [facility] Comment on above: Performed By: #### L 500.3400, L500.2500, L501.2450, L503.6005, L300.3900, L501.5200, L300.4310, L501.4021, L100.0100, L503.7505 ####[facility] [address] [place], [address] Prothrombin timeOrdered By: Danny Hutton on 01-28-2025 PT Coag (PPP) [Time] 20.0 s High 11.7-14.9 [facility] RBC Auto (Bld) [#/Vol]Ordere d By: Danny Hutton on 01-28-2025 RBC (Bld) [#/Vol] 2.82 10*6/uL Low 4.6-6.2 [facility] Serum creatinine measurement (mass/volume)Ordered By: Danny Hutton on 01-28-2025 Creatinine [Mass/Vol] 1.16 mg/dL 0.70-1.20 [facility] Serum globulin measurementOr dered By: Danny Hutton on 01-28-2025 Globulin (S) [Mass/Vol] 3.3 g/dL 2.2-4.2 [facility] Serum glucose measurement (m ass/volume)Ordered By: Danny Hutton on 01-28-2025 Glucose [Mass/Vol] 93 mg/dL 70-99 [facility] Serum or plasma alanine thomas otransferase (ALT) measurementOrdered By: Danny Hutton on 01-28-2025 ALT [Catalytic activity/Vol] 31 U/L <47 [facility] Serum or plasma albumin roosevelt urement (mass/volume)Ordered By: Danny Barker on 01-28-2025 Albumin [Mass/Vol] 2.5 g/dL Low 3.5-5.0 [facility] Serum or plasma alkaline kendrick sphatase measurementOrdered By: aDnny Hutton on 01-28-2025 ALP [Catalytic activity/Vol] 201 U/L High 40-129 [facility] Serum or plasma calcium roosevelt urement (mass/volume)Ordered By: Danny Barker on 01-28-2025 Calcium [Mass/Vol] 8.9 mg/dL 7.6-11.0 [facility] Serum or plasma urea nitroge n measurement (mass/volume)Ordered By: Danny Hutton on 01-28-2025 Urea nitrogen [Mass/Vol] 15 mg/dL 4-19 [facility] Sodium levelOrdered By: Srinath Hutton on 01-28-2025 Sodium [Moles/Vol] 131 mmol/L Low 133-145 [facility] Squamous epithelial cells de tection in urine sediment by light microscopyOrdered By: Danny Hutton on 01-28-2025 Epithelial cells.squamous LM Ql (Urine sed) 0 SEEN /hpf 0-5 [facility] Total proteinOrdered By: Silvano Hutton on 01-28-2025 Protein [Mass/Vol] 5.9 g/dL 5.9-8.4 [facility] Troponin T.cardiac [Mass/vol ume] in Serum or Plasma by High sensitivity methodOrdered By: Danny Hutton on 01-28-2025 Troponin T.cardiac High sensitivity method [Mass/Vol] 13 ng/L <22 [facility] Urinalysis, Completeon 01-28 BACTERIA 1+ /hpf Normal None Seen [facility] Comment on above: Order Comment: COLOR OF URINE MAY AFFECT DIPSTICK RESULTS.DEATH CLEARANCE COORDINATOR TO SPECIFY Performed By: #### L 400.0001 ####[facility] [address] [facility] [address] RBC > 100 SEEN Normal 0-5 [facility] Comment on above: Order Comment: COLOR OF URINE MAY AFFECT DIPSTICK RESULTS.DEATH CLEARANCE COORDINATOR TO SPECIFY Performed By: #### L 400.0001 ####[facility] [address] [facility] [id number] WBC 10-25 SEEN Normal 0-[address] [place] [address] Comment on above: Order Comment: COLOR OF URINE MAY AFFECT DIPSTICK RESULTS.DEATH CLEARANCE COORDINATOR TO SPECIFY Performed By: #### L 400.0001 ####[facility] [address] [place], [address] EPI,SQUAMOUS 0 SEEN Normal 0-5 [facility] Comment on above: Order Comment: COLOR OF URINE MAY AFFECT DIPSTICK RESULTS.DEATH CLEARANCE COORDINATOR TO SPECIFY Performed By: #### L 400.0001 ####[facility] [address] [place], [place], [id number] Mucus Ql (Urine sed) 0 SEEN Normal [facility] Comment on above: Order Comment: COLOR OF URINE MAY AFFECT DIPSTICK RESULTS.DEATH CLEARANCE COORDINATOR TO SPECIFY Performed By: #### L 400.0001 ####[facility] [address] [place], [place], [id number] Urine clarityOrdered By: Silvano Hutton on 01-28-2025 Clarity (U) Cloudy Clear [facility] Urine color determinationOrd ered By: Danny Hutton on 01-28-2025 Color (U) Lexis Yellow [facility] Urine cultureOrdered By: Silvano Hutton on 01-28-2025 Bacteria identified Cx Nom (U) Vancomycin Resist. E. 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 [facility] Urine glucose detectionOrder ed By: Danny Hutton on 01-28-2025 Glucose Ql (U) Normal mg/dl Normal [facility] Urine leukocyte esterase det ection by dipstickOrdered By: Danny Hutton on 01-28-2025 Leukocyte esterase Test strip Ql (U) 500 /ul High Negative [facility] Urine pHOrdered By: Danny Santiago on 01-28-2025 pH (U) 8.0 [pH] 5.0 - 8.0 [facility] Urine sediment bacteria coun t by microscopy (number/high power field)Ordered By: Danny Hutton on 01-28-2025 Bacteria LM.HPF (Urine sed) [#/Area] 1 /[HPF] None Seen [facility] Urine specific gravity measu rementOrdered By: Danny Hutton on 01-28-2025 Specific gravity (U) [Rel density] 1.015 1.002-1.030 [facility] Urine urobilinogen measureme ntOrdered By: Danny Hutton on 01-28-2025 Urobilinogen Ql (U) Normal mg/dl Normal [facility] Venous blood ammonia measure mentOrdered By: [facility] on 01-28-2025 Ammonia (P) [Moles/Vol] 108.0 umol/L High 16-60 [facility] White blood cell (WBC) count Ordered By: [facility] on 01-28-2025 WBC (Bld) [#/Vol] 5.2 10*3/uL 4.4-11.0 [facility] White blood cell countOrdere d By: [facility] on 01-28-2025 White blood cell count 10-25 SEEN /hpf 0-5 [facility] Body Fluid Cell Count+Diffon 01-25-2025 MESOTHELIAL 7 Normal [facility] Comment on above: Order Comment: The r eference range and other method performancespecifications have not been established for this bodyfluid. The test must be integrated into the clinicalcontext for interpretation. Result Comment: AMENDED REPORT 01/25/25 1125 OTHER CELL/BF previously reported as: 7 % Performed By: #### L 200.0200, M100.2900, M100.4001, M100.2000, L350.1000 ####[facility] [address] [place], [address] Culture, Anaerobic Any Sourc iliana 01-24-2025 CUAN No growth in 5 days. Normal [facility] Comment on above: Performed By: #### L 200.0200, M100.2900, M100.4001, M100.2000, L350.1000 ####[facility] [address] [place], [address] Anion gap in Serum or Plasma Ordered By: Anurag Irene on 01-21-2025 Anion gap [Moles/Vol] 7 mmol/L 5-15 [facility] BUN/creatinine ratioOrdered By: Anurag Irene on 01-21-2025 Urea nitrogen/Creatinine [Mass ratio] 15.6 mg/mg 10-20 [facility] Bedside Glucoseon 01-21-2025 FINGERSTICK GLU 151 mg/dL High 74-106 [facility] Comment on above: Result Comment: BRISA GEMENT OF PATIENT CARE PER NURSING PROTOCOL Performed By: #### L 501.080 ####[facility] [address] [place], [address] FINGERSTICK GLU 199 mg/dL High 74-106 [facility] Comment on above: Result Comment: BRISA GEMENT OF PATIENT CARE PER NURSING PROTOCOL Performed By: #### L 501.080 ####[facility] [address] [place], [place], [id number] Bilirubin, totalOrdered By: Anurag Irene on 01-21-2025 Bilirubin [Mass/Vol] 1.52 mg/dL High 0.00-1.30 [facility] Carbon dioxide, total [Moles /volume] in Central venous bloodOrdered By: Anurag Irene on 01-21-2025 CO2 [Moles/Vol] 29.7 mmol/L 21.0-32.0 [facility] Chloride assayOrdered By: Francois Irene on 01-21-2025 Chloride [Moles/Vol] 96 mmol/L Low 98-108 [facility] Comprehensive Metabolic Prof ilon 01-21-2025 Albumin [Mass/Vol] 2.1 g/dL Low 3.5-5.0 [facility] Comment on above: Performed By: #### L 500.4050 ####[facility] [address] [place], [address] Albumin/Globulin [Mass ratio] 0.8 {ratio} Low 0.9-2.4 [facility] Comment on above: Performed By: #### L 500.4050 ####[facility] [address] [place], [address] ALK PHOS 204 U/L High 40-129 [facility] Comment on above: Performed By: #### L 500.4050 ####[facility] [address] [place], [address] ALT [Catalytic activity/Vol] 28 U/L Normal <=46 [facility] Comment on above: Performed By: #### L 500.4050 ####[facility] [address] [place], [address] AST [Catalytic activity/Vol] 48 U/L High <=37 [facility] Comment on above: Performed By: #### L 500.4050 ####[facility] [address] [place], [address] Bilirubin [Mass/Vol] 1.52 mg/dL High 0.00-1.30 [facility] Comment on above: Performed By: #### L 500.4050 ####[facility] [address] [place], [address] BUN/CRE 15.6 RATIO Normal 10-20 [facility] Comment on above: Performed By: #### L 500.4050 ####[facility] [address] [place], [address] Calcium [Mass/Vol] 8.1 mg/dL Normal 7.6-11.0 [facility] Comment on above: Performed By: #### L 500.4050 ####[facility] [address] [place], [address] Chloride [Moles/Vol] 96 mmol/L Low 98-108 [facility] Comment on above: Performed By: #### L 500.4050 ####[facility] [address] [place], [address] CO2 [Moles/Vol] 29.7 mmol/L Normal 21.0-32.0 [facility] Comment on above: Performed By: #### L 500.4050 ####[facility] [address] [place], [address] Creatinine [Mass/Vol] 0.86 mg/dL Normal 0.70-1.20 [facility] Comment on above: Performed By: #### L 500.4050 ####[facility] [address] [place], [address] ECRCL 114.50 ml/min Normal 50-250 [facility] Comment on above: Performed By: #### L 500.4050 ####[facility] [address] [place], [address] GAP 7 Normal 5-15 [facility] Comment on above: Performed By: #### L 500.4050 ####[facility] [address] [place], [address] GFR/1.73 sq M.predicted among non-blacks MDRD (S/P/Bld) [Vol rate/Area] 100 mL/min/{1.73_m2} Normal >60 [facility] Comment on above: Result Comment: mL/m in/1.73m2 CKD-EPI Creatinine Equation (2020) Performed By: #### L 500.4050 ####[facility] [address] [place], [address] Globulin (S) [Mass/Vol] 2.6 g/dL Normal 2.2-4.2 [facility] Comment on above: Performed By: #### L 500.4050 ####[facility] [address] [place], [address] Glucose [Mass/Vol] 199 mg/dL High 70-99 [facility] Comment on above: Performed By: #### L 500.4050 ####[facility] [address], [address] Potassium [Moles/Vol] 3.1 mmol/L Low 3.3-5.1 [facility] Comment on above: Performed By: #### L 500.4050 ####[facility] [address] [place], [place], [address] Sodium [Moles/Vol] 133 mmol/L Normal 133-145 [facility] Comment on above: Performed By: #### L 500.4050 ####[facility] [address] [place], [place], [address] T PROT 4.7 g/dL Low 5.9-8.4 [facility] Comment on above: Performed By: #### L 500.4050 ####[facility] [address] [place], [place], [address] Urea nitrogen [Mass/Vol] 13 mg/dL Normal 4-19 [facility] Comment on above: Performed By: #### L 500.4050 ####[facility] [address] [place], [place], [address] Glomerular filtration rate ( GFR) estimation/1.73 sq m using serum, plasma, or whole bOrdered By: Anurag Irene on 01-21-2025 GFR/1.73 sq M.predicted among non-blacks MDRD (S/P/Bld) [Vol rate/Area] 100 mL/min/{1.73_m2} >60 [facility] Glucose measurement at [facility] deOrdered By: Anurag Irene on 01-21-2025 Glucose [Mass/Vol] 151 mg/dL High 74-106 [facility] No Panel InformationOrdered By: Anurag Irene on 01-21-2025 48 U/L High <38 [facility] Potassium measurement (mass/ volume)Ordered By: Anurag Irene on 01-21-2025 Potassium (Unsp spec) [Mass/Vol] 3.1 mmol/L Low 3.3-5.1 [facility] Serum creatinine measurement (mass/volume)Ordered By: Anurag Irene on 01-21-2025 Creatinine [Mass/Vol] 0.86 mg/dL 0.70-1.20 [facility] Serum globulin measurementOr dered By: Anurag Irene on 01-21-2025 Globulin (S) [Mass/Vol] 2.6 g/dL 2.2-4.2 [facility] Serum glucose measurement (m ass/volume)Ordered By: Anurag Irene on 01-21-2025 Glucose [Mass/Vol] 199 mg/dL High 70-99 [facility] Serum or plasma alanine thomas otransferase (ALT) measurementOrdered By: Anurag Irene on 01-21-2025 ALT [Catalytic activity/Vol] 28 U/L <47 [facility] Serum or plasma albumin roosevelt urement (mass/volume)Ordered By: Anurag Irene on 01-21-2025 Albumin [Mass/Vol] 2.1 g/dL Low 3.5-5.0 [facility] Serum or plasma albumin/glob ulin mass ratioOrdered By: Anurag Irene on 01-21-2025 Albumin/Globulin [Mass ratio] 0.8 {ratio} Low 0.9-2.4 [facility] Serum or plasma alkaline kendrick sphatase measurementOrdered By: Anurag Irene on 01-21-2025 ALP [Catalytic activity/Vol] 204 U/L High 40-129 [facility] Serum or plasma calcium roosevelt urement (mass/volume)Ordered By: Anurag Irene on 01-21-2025 Calcium [Mass/Vol] 8.1 mg/dL 7.6-11.0 [facility] Serum or plasma urea nitroge n measurement (mass/volume)Ordered By: Anurag Irene on 01-21-2025 Urea nitrogen [Mass/Vol] 13 mg/dL 4-19 [facility] Sodium levelOrdered By: Marni Irene on 01-21-2025 Sodium [Moles/Vol] 133 mmol/L 133-145 [facility] Total proteinOrdered By: [place] Irene on 01-21-2025 Protein [Mass/Vol] 4.7 g/dL Low 5.9-8.4 [facility] Absolute lymphocyte countOrd ered By: Anurag Irene on 01-20-2025 Lymphocytes Auto (Unsp spec) [#/Vol] 1.10 10*3/uL 0.83-4.51 [facility] Automated lymphocyte count a s percentage of total leukocytesOrdered By: Anurag Irene on 01-20-2025 Lymphocytes/100 WBC Auto (Unsp spec) 16.3 % Low 19-41 [facility] Basophil percentageOrdered B y: Anurag Irene on 01-20-2025 Basophils/100 WBC (Bld) 0.6 % 0-1 [facility] Bedside Glucoseon 01-20-2025 FINGERSTICK GLU 206 mg/dL High 74-106 [facility] Comment on above: Result Comment: BRISA GEMENT OF PATIENT CARE PER NURSING PROTOCOL Performed By: #### L 501.080 ####[facility] [address] [place], [address] FINGERSTICK GLU 188 mg/dL High [facility]106 [facility] Comment on above: Result Comment: BRISA GEMENT OF PATIENT CARE PER NURSING PROTOCOL Performed By: #### L 501.080 ####[facility] [address] [place], [address] FINGERSTICK GLU 167 mg/dL High [address] [place] [address] Comment on above: Result Comment: BRISA GEMENT OF PATIENT CARE PER NURSING PROTOCOL Performed By: #### L 501.080 ####[facility] [address] [place], [address] FINGERSTICK GLU 164 mg/dL High [address] [place] [address] Comment on above: Result Comment: BRISA GEMENT OF PATIENT CARE PER NURSING PROTOCOL Performed By: #### L 501.080 ####[facility] [address] [place], [address] Blood manual differential co mment interpretation (narrative result)Ordered By: Anurag Irene on 01-20-2025 Manual differential comment Marco Antonio (Bld) [Interp] SCANNED [facility] CBC W/Diff, Automatedon 01-02 PLT EST MOD DEC Normal ADEQ [facility] Comment on above: Performed By: #### L 100.0100 ####[facility] [address] [place], [address] SMEAR COMMENT SCANNED Normal [facility] Comment on above: Performed By: #### L 100.0100 ####[facility] [address] [place], [address] Comprehensive Metabolic Prof ilon 01-20-2025 Albumin [Mass/Vol] 2.0 g/dL Low 3.5-5.0 [facility] Comment on above: Performed By: #### L 500.4050 ####[facility] [address] [place], [address] Albumin/Globulin [Mass ratio] 0.7 {ratio} Low 0.9-2.4 [facility] Comment on above: Performed By: #### L 500.4050 ####[facility] [address] [place], [address] ALK PHOS 211 U/L High 40-129 [facility] Comment on above: Performed By: #### L 500.4050 ####[facility] [address] [place], [address] ALT [Catalytic activity/Vol] 32 U/L Normal <=46 [facility] Comment on above: Performed By: #### L 500.4050 ####[facility] [address] [place], [address] AST [Catalytic activity/Vol] 45 U/L High <=37 [facility] Comment on above: Performed By: #### L 500.4050 ####[facility] [address] [place], [address] Bilirubin [Mass/Vol] 1.61 mg/dL High 0.00-1.30 [facility] Comment on above: Performed By: #### L 500.4050 ####[facility] [address] [place], [address] BUN/CRE 13.4 RATIO Normal 10-20 [facility] Comment on above: Performed By: #### L 500.4050 ####[facility] [address] [place], [address] Calcium [Mass/Vol] 8.1 mg/dL Normal 7.6-11.0 [facility] Comment on above: Performed By: #### L 500.4050 ####[facility] [address] [place], [address] Chloride [Moles/Vol] 95 mmol/L Low 98-108 [facility] Comment on above: Performed By: #### L 500.4050 ####[facility] [address] [place], [address] CO2 [Moles/Vol] 30.3 mmol/L Normal 21.0-32.0 [facility] Comment on above: Performed By: #### L 500.4050 ####[facility] [address] [place], [address] Creatinine [Mass/Vol] 0.87 mg/dL Normal 0.70-1.20 [facility] Comment on above: Performed By: #### L 500.4050 ####[facility] [address] [place], [address] ECRCL 112.61 ml/min Normal 50-250 [facility] Comment on above: Performed By: #### L 500.4050 ####[facility] [address] [place], [address] GAP 7 Normal 5-15 [facility] Comment on above: Performed By: #### L 500.4050 ####[facility] [address] [place], [address] GFR/1.73 sq M.predicted among non-blacks MDRD (S/P/Bld) [Vol rate/Area] 100 mL/min/{1.73_m2} Normal >60 [facility] Comment on above: Result Comment: mL/m in/1.73m2 CKD-EPI Creatinine Equation (2020) Performed By: #### L 500.4050 ####[facility] [address] [place], [address] Globulin (S) [Mass/Vol] 2.9 g/dL Normal 2.2-4.2 [facility] Comment on above: Performed By: #### L 500.4050 ####[facility] [address] [place], [address] Glucose [Mass/Vol] 195 mg/dL High 70-99 [facility] Comment on above: Performed By: #### L 500.4050 ####[facility] [address] [place], [address] Potassium [Moles/Vol] 3.1 mmol/L Low 3.3-5.1 [facility] Comment on above: Performed By: #### L 500.4050 ####[facility] [address] [place], [address] Sodium [Moles/Vol] 133 mmol/L Normal 133-145 [facility] Comment on above: Performed By: #### L 500.4050 ####[facility] [address] [place], [address] T PROT 4.9 g/dL Low 5.9-8.4 [facility] Comment on above: Performed By: #### L 500.4050 ####[facility] [address] [place], [address] Urea nitrogen [Mass/Vol] 12 mg/dL Normal -19 [facility] Comment on above: Performed By: #### L 500.4050 ####[facility] [address] [place], [address] Eosinophil percentageOrdered By: Anurag Irene on 01-20-2025 Eosinophils/100 WBC (Bld) 6.5 % High 0-5 [facility] Erythrocyte distribution wid th ratioOrdered By: Anurag Irene on 01-20-2025 Erythrocyte distribution width (RBC) [Ratio] 18.3 % High 11.6-14.6 [facility] Erythrocyte distribution wid th standard deviationOrdered By: Anurag Irene on 01-20-2025 Erythrocyte distribution width (RBC) [Ratio] 58.5 fl High 35.1-43.9 [facility] Hematocrit Auto (Bld) [Volum e fraction]Ordered By: Anurag Irene on 01-20-2025 Hematocrit (Bld) [Volume fraction] 22.9 % Low 40-54 [facility] Hemoglobin measurementOrdere d By: Anurag Irene on 01-20-2025 Hemoglobin (Bld) [Mass/Vol] 7.7 g/dL Low 13.0-16.5 [facility] Immature granulocytes/100 WB C Auto (Bld)Ordered By: Anurag Irene on 01-20-2025 Immature granulocytes/100 WBC (Bld) 1.200 % High 0.0-0.9 [facility] MCV (mean corpuscular volume ) determinationOrdered By: Anurag Irene on 01-20-2025 MCV (RBC) [Entitic vol] 88.1 fL 80-94 [facility] Mean corpuscular hemoglobin (MCH) determinationOrdered By: Anurag Irene on 01-20-2025 MCH (RBC) [Entitic mass] 29.6 pg 27.0-32.0 [facility] Monocyte percentageOrdered B y: Anurag Irene on 01-20-2025 Monocytes/100 WBC (Bld) 11.9 % High 0-10 [facility] Neutrophil percentageOrdered By: Anurag Irene on 01-20-2025 Neutrophils/100 WBC (Bld) 63.5 % 47-70 [facility] Platelet countOrdered By: Francois Irene on 01-20-2025 Platelets (Bld) [#/Vol] 93 10*3/uL Low 150-450 [facility] Platelet estimateOrdered By: Anurag Irene on 01-20-2025 Platelets LM Ql (Bld) MOD DEC [facility] RBC Auto (Bld) [#/Vol]Ordere d By: Anurag Irene on 01-20-2025 RBC (Bld) [#/Vol] 2.60 10*6/uL Low 4.6-6.2 [facility] White blood cell (WBC) count Ordered By: Anurag Irene on 01-20-2025 WBC (Bld) [#/Vol] 6.8 10*3/uL 4.4-11.0 [facility] Activated partial thrombopla stin time (aPTT) in platelet poor plasma by coagulation aOrdered By: Rosendo Renee on 01-19-2025 aPTT Coag (PPP) [Time] 46.6 s High 24.1-36.2 [facility] Albumin, Serumon 01-19-2025 Albumin [Mass/Vol] 2.2 g/dL Low 3.5-5.0 [facility] Comment on above: Performed By: #### L 501.2300, L300.4310, L300.3900, L501.5200, L501.1800 ####[facility] [address] [place], [address] Bedside Glucoseon 01-19-2025 FINGERSTICK GLU 225 mg/dL High [address] [facility] Comment on above: Result Comment: BRISA GEMENT OF PATIENT CARE PER NURSING PROTOCOL Performed By: #### L 501.080 ####[facility] [address] [place], [address] FINGERSTICK GLU 268 mg/dL High [address] [place] [address] Comment on above: Result Comment: BRISA GEMENT OF PATIENT CARE PER NURSING PROTOCOL Performed By: #### L 501.080 ####[facility] [address] [place], [address] FINGERSTICK GLU 187 mg/dL High [address] [place] [address] Comment on above: Result Comment: BRISA GEMENT OF PATIENT CARE PER NURSING PROTOCOL Performed By: #### L 501.080 ####[facility] [address] [place], [address] FINGERSTICK GLU 198 mg/dL High 74-106 [facility] Comment on above: Result Comment: BRISA MOROCHO OF PATIENT CARE PER NURSING PROTOCOL Performed By: #### L 501.080 ####[facility] [address] [place], [address] Bilirubin directOrdered By: Anurag Irene on 01-19-2025 Bilirubin.direct [Mass/Vol] 1.00 mg/dL High 0.00-0.30 [facility] Bilirubin, Directon 01-20-20 25 Bilirubin.direct [Mass/Vol] 1.00 mg/dL High 0.00-0.30 [facility] Comment on above: Performed By: #### L 501.4700, L500.4050, L100.0100 ####[facility] [address] [place], [address] Body Fluid Culton 01-19-2025 BFC Culture exhibits no growth. Normal [facility] Comment on above: Performed By: #### L 200.0200, M100.2900, M100.4001, M100.2000, L350.1000 ####[facility] [address] [place], [address] CBC W/Diff, Automatedon 01-02 Absolute Lymph 1.08 X10 3/uL Normal 0.83-4.51 [facility] Comment on above: Performed By: #### L 501.4700, L500.4050, L100.0100 ####[facility] [address] [place], [address] Absolute Neut 5.4 X10 3/uL Normal 2.0-7.7 [facility] Comment on above: Performed By: #### L 501.4700, L500.4050, L100.0100 ####[facility] [address] [place], [address] Basophils/100 WBC (Bld) 0.5 % Normal 0-1 [facility] Comment on above: Performed By: #### L 501.4700, L500.4050, L100.0100 ####[facility] [address] [place], [address] Eosinophils/100 WBC (Bld) 5.8 % High 0-5 [facility] Comment on above: Performed By: #### L 501.4700, L500.4050, L100.0100 ####[facility] [address] [place], [address] Erythrocyte distribution width (RBC) [Ratio] 18.6 % High 11.6-14.6 [facility] Comment on above: Performed By: #### L 501.4700, L500.4050, L100.0100 ####[facility] [address] [place], [address] Hematocrit (Bld) [Volume fraction] 22.3 % Low 40-54 [facility] Comment on above: Performed By: #### L 501.4700, L500.4050, L100.0100 ####[facility] [address] [place], [address] Hemoglobin (Bld) [Mass/Vol] 7.6 g/dL Low 13.0-16.5 [facility] Comment on above: Performed By: #### L 501.4700, L500.4050, L100.0100 ####[facility] [address] [place], [address] IG% 1.400 High 0.0-0.9 [facility] Comment on above: Result Comment: IG% - Immature Granulocytes (promyelocytes, myelocytes andmetamyelocytes) > 1% indicates that a LEFT SHIFT is Present. Performed By: #### L 501.4700, L500.4050, L100.0100 ####[facility] [address] [place], [address] Lymphocytes/100 WBC (Bld) 13.6 % Low 19-41 [facility] Comment on above: Performed By: #### L 501.4700, L500.4050, L100.0100 ####[facility] [address] [place], [address] MCH (RBC) [Entitic mass] 30.3 pg Normal 27.0-32.0 [facility] Comment on above: Performed By: #### L 501.4700, L500.4050, L100.0100 ####[facility] [address] [place], [address] MCHC (RBC) [Mass/Vol] 34.1 g/dL Normal 32-36 [facility] Comment on above: Performed By: #### L 501.4700, L500.4050, L100.0100 ####[facility] [address] [place], [address] MCV (RBC) [Entitic vol] 88.8 fL Normal 80-94 [facility] Comment on above: Performed By: #### L 501.4700, L500.4050, L100.0100 ####[facility] [address] [place], [address] Monocytes/100 WBC (Bld) 11.0 % High 0-10 [facility] Comment on above: Performed By: #### L 501.4700, L500.4050, L100.0100 ####[facility] [address] [place], [address] Neutrophils/100 WBC (Bld) 67.7 % Normal 47-70 [facility] Comment on above: Performed By: #### L 501.4700, L500.4050, L100.0100 ####[facility] [address] [place], [address] Nucleated RBC (Bld) [#/Vol] 0 10*3/uL Normal 0-5 [facility] Comment on above: Performed By: #### L 501.4700, L500.4050, L100.0100 ####[facility] [address] [place], [address] Platelet mean volume (Bld) [Entitic vol] 11.1 fL Normal 6.2-12.0 [facility] Comment on above: Performed By: #### L 501.4700, L500.4050, L100.0100 ####[facility] [address] [place], [address] Platelets (Bld) [#/Vol] 107 10*3/uL Low 150-450 [facility] Comment on above: Performed By: #### L 501.4700, L500.4050, L100.0100 ####[facility] [address] [place], [address] RBC (Bld) [#/Vol] 2.51 10*6/uL Low 4.6-6.2 [facility] Comment on above: Performed By: #### L 501.4700, L500.4050, L100.0100 ####[facility] [address] [place], [address] RDW SD 59.0 fl High 35.1-43.9 [facility] Comment on above: Performed By: #### L 501.4700, L500.4050, L100.0100 ####[facility] [address] [place], [address] WBC (Bld) [#/Vol] 7.9 10*3/uL Normal 4.4-11.0 [facility] Comment on above: Performed By: #### L 501.4700, L500.4050, L100.0100 ####[facility] [address] [place], [address] Comprehensive Metabolic Prof lexis 01-19-2025 Albumin [Mass/Vol] 2.2 g/dL Low 3.5-5.0 [facility] Comment on above: Performed By: #### L 501.4700, L500.4050, L100.0100 ####[facility] [address] [place], [address] Albumin/Globulin [Mass ratio] 0.9 {ratio} Normal 0.9-2.4 [facility] Comment on above: Performed By: #### L 501.4700, L500.4050, L100.0100 ####[facility] [address] [place], [address] ALK PHOS 225 U/L High 40-129 [facility] Comment on above: Performed By: #### L 501.4700, L500.4050, L100.0100 ####[facility] [address] [place], [address] ALT [Catalytic activity/Vol] 34 U/L Normal <=46 [facility] Comment on above: Performed By: #### L 501.4700, L500.4050, L100.0100 ####[facility] [address] [place], [address] AST [Catalytic activity/Vol] 52 U/L High <=37 [facility] Comment on above: Performed By: #### L 501.4700, L500.4050, L100.0100 ####[facility] [address] [place], [address] Bilirubin [Mass/Vol] 1.70 mg/dL High 0.00-1.30 [facility] Comment on above: Performed By: #### L 501.4700, L500.4050, L100.0100 ####[facility] [address] [place], [address] BUN/CRE 10.4 RATIO Normal 10-20 [facility] Comment on above: Performed By: #### L 501.4700, L500.4050, L100.0100 ####[facility] [address] [place], [address] Calcium [Mass/Vol] 7.9 mg/dL Normal 7.6-11.0 [facility] Comment on above: Performed By: #### L 501.4700, L500.4050, L100.0100 ####[facility] [address] [place], [address] Chloride [Moles/Vol] 94 mmol/L Low 98-108 [facility] Comment on above: Performed By: #### L 501.4700, L500.4050, L100.0100 ####[facility] [address] [place], [address] CO2 [Moles/Vol] 30.7 mmol/L Normal 21.0-32.0 [facility] Comment on above: Performed By: #### L 501.4700, L500.4050, L100.0100 ####[facility] [address] [place], [address] Creatinine [Mass/Vol] 1.05 mg/dL Normal 0.70-1.20 [facility] Comment on above: Performed By: #### L 501.4700, L500.4050, L100.0100 ####[facility] [address] [place], [address] ECRCL 93.35 ml/min Normal 50-250 [facility] Comment on above: Performed By: #### L 501.4700, L500.4050, L100.0100 ####[facility] [address] [place], [address] GAP 7 Normal 5-15 [facility] Comment on above: Performed By: #### L 501.4700, L500.4050, L100.0100 ####[facility] [address] [place], [address] GFR/1.73 sq M.predicted among non-blacks MDRD (S/P/Bld) [Vol rate/Area] 82 mL/min/{1.73_m2} Normal >60 [facility] Comment on above: Result Comment: mL/m in/1.73m2 CKD-EPI Creatinine Equation (2020) Performed By: #### L 501.4700, L500.4050, L100.0100 ####[facility] [address] [place], [address] Globulin (S) [Mass/Vol] 2.6 g/dL Normal 2.2-4.2 [facility] Comment on above: Performed By: #### L 501.4700, L500.4050, L100.0100 ####[facility] [address] [place], [address] Glucose [Mass/Vol] 220 mg/dL High 70-99 [facility] Comment on above: Performed By: #### L 501.4700, L500.4050, L100.0100 ####[facility] [address] [place], [address] Potassium [Moles/Vol] 3.0 mmol/L Low 3.3-5.1 [facility] Comment on above: Performed By: #### L 501.4700, L500.4050, L100.0100 ####[facility] [address] [place], [address] Sodium [Moles/Vol] 132 mmol/L Low 133-145 [facility] Comment on above: Performed By: #### L 501.4700, L500.4050, L100.0100 ####[facility] [address] [place], [address] T PROT 4.8 g/dL Low 5.9-8.4 [facility] Comment on above: Performed By: #### L 501.4700, L500.4050, L100.0100 ####[facility] [address] [place], [address] Urea nitrogen [Mass/Vol] 11 mg/dL Normal 4-19 [facility] Comment on above: Performed By: #### L 501.4700, L500.4050, L100.0100 ####[facility] [address] [place], [address] Gram Stainon 01-19-2025 GS Centrifuged Specimen ? Culture performed on centrifuged specimen Gram Stain No organisms seen No cells seen Normal [facility] Comment on above: Performed By: #### L 200.0200, M100.2900, M100.4001, M100.2000, L350.1000 ####[facility] [address] [place], [address] Liver Profileon 01-19-2025 ALB Normal 3.5-5.0 [facility] Comment on above: Result Comment: MOVE D TO DIFFERENT REQ- SEE C50 Performed By: #### L 500.3400 ####[facility] [address] [place], [address] ALK PHOS Normal 40-129 [facility] Comment on above: Result Comment: MOVE D TO DIFFERENT REQ- SEE C50 Performed By: #### L 500.3400 ####[facility] [address] [place], [address] ALT Normal <=46 [facility] Comment on above: Result Comment: MOVE D TO DIFFERENT REQ- SEE C50 Performed By: #### L 500.3400 ####[facility] [address] [place], [address] AST Normal <=37 [facility] Comment on above: Result Comment: MOVE D TO DIFFERENT REQ- SEE C50 Performed By: #### L 500.3400 ####[facility] [address] [place], [address] D BILI Normal 0.00-0.30 [facility] Comment on above: Result Comment: MOVE D TO DIFFERENT REQ- SEE C50 Performed By: #### L 500.3400 ####[facility] [address] [place], [address] T BILI Normal 0.00-1.30 [facility] Comment on above: Result Comment: MOVE D TO DIFFERENT REQ- SEE C50 Performed By: #### L 500.3400 ####[facility] [address] [place], [address] T PROT Normal 5.9-8.4 [facility] Comment on above: Result Comment: MOVE D TO DIFFERENT REQ- SEE C50 Performed By: #### L 500.3400 ####[facility] [address] [place], [address] Magnesiumon 01-19-2025 Magnesium [Mass/Vol] 1.7 mg/dL Normal 1.5-2.2 [facility] Comment on above: Performed By: #### L 501.2300, L300.4310, L300.3900, L501.5200, L501.1800 ####[facility] [address] [place], [address] Magnesium measurement (mass/ volume)Ordered By: Rosendo Renee on 01-19-2025 Magnesium (Unsp spec) [Mass/Vol] 1.7 mg/dL 1.5-2.2 [facility] Partial Thromboplast Timeon 01-19-2025 aPTT Coag (Bld) [Time] 46.6 s High 24.1-36.2 [facility] Comment on above: Performed By: #### L 501.2300, L300.4310, L300.3900, L501.5200, L501.1800 ####[facility] [address] [place], [address] Phosphoruson 01-19-2025 Phosphate [Mass/Vol] 3.5 mg/dL Normal 2.7-4.5 [facility] Comment on above: Performed By: #### L 501.2300, L300.4310, L300.3900, L501.5200, L501.1800 ####[facility] [address] [place], [address] Prothrombin Time w/INRon INR Coag (PPP) [Relative time] 2.0 {INR} Normal [facility] Comment on above: Performed By: #### L 501.2300, L300.4310, L300.3900, L501.5200, L501.1800 ####[facility] [address] [place], [address] PT Coag (PPP) [Time] 22.8 s High 11.7-14.9 [facility] Comment on above: Performed By: #### L 501.2300, L300.4310, L300.3900, L501.5200, L501.1800 ####[facility] [address] [place], [address] Prothrombin timeOrdered By: Rosendo Renee on 01-19-2025 PT Coag (PPP) [Time] 22.8 s High 11.7-14.9 [facility] Abdomen Limitedon 01-18-2025 Abdomen Limited Normal [facility] Anaerobic cultureOrdered By: Anurag Irene on 01-18-2025 Bacteria identified Anaer cx Nom (Unsp spec) No growth in 5 days. [facility] Basic Metabolic Profile (BMP )on 01-18-2025 BUN/CRE 9.8 RATIO Low 10-20 [facility] Comment on above: Performed By: #### L 500.2500 ####[facility] [address] [place], [address] Calcium [Mass/Vol] 7.7 mg/dL Normal 7.6-11.0 [facility] Comment on above: Performed By: #### L 500.2500 ####[facility] [address] [place], [address] Chloride [Moles/Vol] 92 mmol/L Low 98-108 [facility] Comment on above: Performed By: #### L 500.2500 ####[facility] [address] [place], [address] CO2 [Moles/Vol] 31.5 mmol/L Normal 21.0-32.0 [facility] Comment on above: Performed By: #### L 500.2500 ####[facility] [address] [place], [address] Creatinine [Mass/Vol] 0.85 mg/dL Normal 0.70-1.20 [facility] Comment on above: Performed By: #### L 500.2500 ####[facility] [address] [place], [address] ECRCL 116.49 ml/min Normal 50-250 [facility] Comment on above: Performed By: #### L 500.2500 ####[facility] [address] [place], [address] GAP 8 Normal 5-15 [facility] Comment on above: Performed By: #### L 500.2500 ####[facility] [address] [place], [address] GFR/1.73 sq M.predicted among non-blacks MDRD (S/P/Bld) [Vol rate/Area] 101 mL/min/{1.73_m2} Normal >60 [facility] Comment on above: Result Comment: mL/m in/1.73m2 CKD-EPI Creatinine Equation (2020) Performed By: #### L 500.2500 ####[facility] [address] [place], [address] Glucose [Mass/Vol] 228 mg/dL High 70-99 [facility] Comment on above: Performed By: #### L 500.2500 ####[facility] [address] [place], [address] Potassium [Moles/Vol] 2.8 mmol/L Low 3.3-5.1 [facility] Comment on above: Performed By: #### L 500.2500 ####[facility] [address] [place], [address] Sodium [Moles/Vol] 132 mmol/L Low 133-145 [facility] Comment on above: Performed By: #### L 500.2500 ####[facility] [address] [place], [address] Urea nitrogen [Mass/Vol] 8 mg/dL Normal 4-19 [facility] Comment on above: Performed By: #### L 500.2500 ####[facility] [address] [place], [address] Bedside Glucoseon 01-18-2025 FINGERSTICK GLU 250 mg/dL High 74-106 [facility] Comment on above: Result Comment: BRISA GEMENT OF PATIENT CARE PER NURSING PROTOCOL Performed By: #### L 501.080 ####[facility] [address] [place], [address] FINGERSTICK GLU 158 mg/dL High 74-106 [facility] Comment on above: Result Comment: BRISA GEMENT OF PATIENT CARE PER NURSING PROTOCOL Performed By: #### L 501.080 ####[facility] [address] [place], [address] FINGERSTICK GLU 142 mg/dL High 74-106 [facility] Comment on above: Result Comment: BRISA GEMENT OF PATIENT CARE PER NURSING PROTOCOL Performed By: #### L 501.080 ####[facility] [address] [place], [address] FINGERSTICK GLU 171 mg/dL High 74-106 [facility] Comment on above: Result Comment: BRISA MOROCHO OF PATIENT CARE PER NURSING PROTOCOL Performed By: #### L 501.080 ####[facility] [address] [place], [address] Body fluid appearance (nomin al result)Ordered By: Anurag Irene on 01-18-2025 Appearance (Body fld) CLEAR [facility] Body fluid color determinati onOrdered By: Anurag Irene on 01-18-2025 Color (Body fld) LT YEL [facility] Body fluid cultureOrdered By : Anurag Irene on 01-18-2025 Microbial culture, body fluid Culture exhibits no growth. [facility] Body fluid leukocytes count (number/volume)Ordered By: Anurag Irene on 01-18-2025 WBC (Body fld) [#/Vol] 0.143 10*3/uL [facility] Body fluid lymphocytes/100 l eukocytesOrdered By: Anurag Irene on 01-18-2025 Lymphocytes/100 WBC (Body fld) 24 % [facility] Body fluid macrophage countO rdered By: Anurag Irene on 01-18-2025 Macrophages (Body fld) [#/Vol] 46 % [facility] Body fluid mesothelial cell percentageOrdered By: Anurag Irene on 01-18-2025 Mesothelial cells/100 WBC (Body fld) 7 % [facility] Body fluid mononuclear cell percentageOrdered By: Anurag Irene on 01-18-2025 Mononuclear cells/100 WBC (Body fld) 75.6 % [facility] Body fluid other cell count as percentage of leukocytesOrdered By: Anurag Irene on 01-18-2025 Other cells/100 WBC (Body fld) 7 % [facility] Other cells/100 WBC (Body fld) [employer] [facility] Body fluid protein measureme nt (mass/volume)Ordered By: Anurag Irene on 01-18-2025 Protein (Body fld) [Mass/Vol] 0.3 g/dL Not Establ. [facility] Body fluid segmented neutrop hils count (number/volume)Ordered By: Anurag Irene on 01-18-2025 Segmented neutrophils (Body fld) [#/Vol] 20 % [facility] Body fluid total cell countO rdered By: Anurag Irene on 01-18-2025 Cells Counted Total (Body fld) [#] 0.172 10^3/ul [facility] CBC W/Diff, Automatedon 01-02 Absolute Lymph 1.13 X10 3/uL Normal 0.83-4.51 [facility] Comment on above: Performed By: #### L 100.0100 ####[facility] [address] [place], [address] Absolute Neut 5.5 X10 3/uL Normal 2.0-7.7 [facility] Comment on above: Performed By: #### L 100.0100 ####[facility] [address] [place], [address] Basophils/100 WBC (Bld) 0.6 % Normal 0-1 [facility] Comment on above: Performed By: #### L 100.0100 ####[facility] [address] [place], [address] Eosinophils/100 WBC (Bld) 6.1 % High 0-5 [facility] Comment on above: Performed By: #### L 100.0100 ####[facility] [address] [place], [address] Erythrocyte distribution width (RBC) [Ratio] 18.7 % High 11.6-14.6 [facility] Comment on above: Performed By: #### L 100.0100 ####[facility] [address] [place], [address] Hematocrit (Bld) [Volume fraction] 22.6 % Low 40-54 [facility] Comment on above: Performed By: #### L 100.0100 ####[facility] [address] [place], [address] Hemoglobin (Bld) [Mass/Vol] 7.7 g/dL Low 13.0-16.5 [facility] Comment on above: Performed By: #### L 100.0100 ####[facility] [address] [place], [address] IG% 1.200 High 0.0-0.9 [facility] Comment on above: Result Comment: IG% - Immature Granulocytes (promyelocytes, myelocytes andmetamyelocytes) > 1% indicates that a LEFT SHIFT is Present. Performed By: #### L 100.0100 ####[facility] [address] [place], [address] Lymphocytes/100 WBC (Bld) 14.0 % Low 19-41 [facility] Comment on above: Performed By: #### L 100.0100 ####[facility] [address] [place], [address] MCH (RBC) [Entitic mass] 30.1 pg Normal 27.0-32.0 [facility] Comment on above: Performed By: #### L 100.0100 ####[facility] [address] [place], [address] MCHC (RBC) [Mass/Vol] 34.1 g/dL Normal 32-36 [facility] Comment on above: Performed By: #### L 100.0100 ####[facility] [address] [place], [address] MCV (RBC) [Entitic vol] 88.3 fL Normal 80-94 [facility] Comment on above: Performed By: #### L 100.0100 ####[facility] [address] [place], [address] Monocytes/100 WBC (Bld) 10.0 % Normal 0-10 [facility] Comment on above: Performed By: #### L 100.0100 ####[facility] [address] [place], [address] Neutrophils/100 WBC (Bld) 68.1 % Normal 47-70 [facility] Comment on above: Performed By: #### L 100.0100 ####[facility] [address] [place], [address] Nucleated RBC (Bld) [#/Vol] 0 10*3/uL Normal 0-5 [facility] Comment on above: Performed By: #### L 100.0100 ####[facility] [address] [place], [address] Platelet mean volume (Bld) [Entitic vol] 10.5 fL Normal 6.2-12.0 [facility] Comment on above: Performed By: #### L 100.0100 ####[facility] [address] [place], [address] Platelets (Bld) [#/Vol] 107 10*3/uL Low 150-450 [facility] Comment on above: Performed By: #### L 100.0100 ####[facility] [address] [place], [address] RBC (Bld) [#/Vol] 2.56 10*6/uL Low 4.6-6.2 [facility] Comment on above: Performed By: #### L 100.0100 ####[facility] [address] [place], [address] RDW SD 58.9 fl High 35.1-43.9 [facility] Comment on above: Performed By: #### L 100.0100 ####[facility] [address] [place], [address] WBC (Bld) [#/Vol] 8.1 10*3/uL Normal 4.4-11.0 [facility] Comment on above: Performed By: #### L 100.0100 ####[facility] [address] [place], [address] Cytology report of Body flui d Cyto stainOrdered By: Anurag Irene on 01-18-2025 Cytology report Cyto stain Doc (Body fld) SEE PATHOLOGY REPORT [facility] Cytology, Body Fluid / CSFon 01-18-2025 CYTOLOGY,BF/CSF SEE PATHOLOGY REPORT Normal [facility] Comment on above: Result Comment: Spec imen submitted to Anatomical Pathology Department fortesting. Performed By: #### L 200.0200, M100.2900, M100.4001, M100.2000, L350.1000 ####[facility] [address] [place], [address] Glucose, Body Fluidon 2024 GLUC, BODY FLD 154 mg/dL Normal Not Establ. [facility] Comment on above: Performed By: #### L 503.0100, L503.0300 ####[facility] [address] [place], [address] Gram stainOrdered By: Anuradha Irene on 01-18-2025 Microscopic observation Gram stain Nom (Unsp spec) [facility] Magnesiumon 01-18-2025 Magnesium [Mass/Vol] 1.6 mg/dL Normal 1.5-2.2 [facility] Comment on above: Performed By: #### L 501.2300, L501.5200 ####[facility] [address] [place], [address] Monocyte detectionOrdered By : Anurag Irene on 01-18-2025 Monocytes/100 WBC (Bld) 3 % [facility] No Panel InformationOrdered By: Anurag Irene on 01-18-2025 218 /mm3 [facility] SEE COMMENT [facility] Paracentesis with USon 01-18 Paracentesis with US Normal [facility] Pathologist interpretation o f Body fluid testsOrdered By: Anurag Irene on 01-18-2025 Pathologist interpretation (Body fld) [Interp] Reviewed [facility] Phosphoruson 01-18-2025 Phosphate [Mass/Vol] 3.7 mg/dL Normal 2.7-4.5 [facility] Comment on above: Performed By: #### L 501.2300, L501.5200 ####[facility] [address] [place], [address] Protein, Body Fluidon 2024 Protein [Mass/Vol] 0.3 g/dL Normal Not Establ. [facility] Comment on above: Performed By: #### L 503.0100, L503.0300 ####[facility] [address] [place], [address] Prothrombin Time w/INRon INR Coag (PPP) [Relative time] 2.0 {INR} Normal [facility] Comment on above: Performed By: #### L 300.3900 ####[facility] [address] [place], [address] PT Coag (PPP) [Time] 22.9 s High 11.7-14.9 [facility] Comment on above: Performed By: #### L 300.3900 ####[facility] [address] [place], [address] Special Stain Group IIon Special Stain Group II Normal [facility] Comment on above: Performed By: #### P SSII ####[facility] [address] [place], [address] Specimen source identificati on of body fluidOrdered By: Anurag Irene on 01-18-2025 Specimen source Nom (Body fld) PERITONEAL FLUID [facility] Stool Occult Blood iFOBon STOB Negative Normal [facility] Comment on above: Performed By: #### M 100.7900 ####[facility] [address] [place], [address] Stool gastrointestinal hemog lobin detection by immunologic methodOrdered By: Cielo Tovar on 01-18-2025 Lower GI hemoglobin IA Ql (Stl) [facility] Bedside Glucoseon 01-17-2025 FINGERSTICK GLU 180 mg/dL High 74-106 [facility] Comment on above: Result Comment: BRISA GEMENT OF PATIENT CARE PER NURSING PROTOCOL Performed By: #### L 501.080 ####[facility] [address] [place], [address] FINGERSTICK GLU 236 mg/dL High 74-106 [facility] Comment on above: Result Comment: BRISA GEMENT OF PATIENT CARE PER NURSING PROTOCOL Performed By: #### L 501.080 ####[facility] [address] [place], [address] FINGERSTICK GLU 141 mg/dL High 74-106 [facility] Comment on above: Result Comment: BRISA GEMENT OF PATIENT CARE PER NURSING PROTOCOL Performed By: #### L 501.080 ####[facility] [address] [place], [address] FINGERSTICK GLU 173 mg/dL High 74-106 [facility] Comment on above: Result Comment: BRISA GEMENT OF PATIENT CARE PER NURSING PROTOCOL Performed By: #### L 501.080 ####[facility] [address] [place], [address] CBC W/Diff, Automatedon -08 09-2024 Basophils/100 WBC (Bld) 0.5 % Normal 0-1 [facility] Comment on above: Performed By: #### L 100.0100 ####[facility] [address] [place], [address] Eosinophils/100 WBC (Bld) 6.8 % High 0-5 [facility] Comment on above: Performed By: #### L 100.0100 ####[facility] [address] [place], [address] Erythrocyte distribution width (RBC) [Ratio] 18.8 % High 11.6-14.6 [facility] Comment on above: Performed By: #### L 100.0100 ####[facility] [address] [place], [address] Hematocrit (Bld) [Volume fraction] 22.2 % Low 40-54 [facility] Comment on above: Performed By: #### L 100.0100 ####[facility] [address] [place], [address] Hemoglobin (Bld) [Mass/Vol] 7.5 g/dL Low 13.0-16.5 [facility] Comment on above: Performed By: #### L 100.0100 ####[facility] [address] [place], [address] Lymphocytes/100 WBC (Bld) 12.9 % Low 19-41 [facility] Comment on above: Performed By: #### L 100.0100 ####[facility] [address] [place], [address] MCH (RBC) [Entitic mass] 30.0 pg Normal 27.0-32.0 [facility] Comment on above: Performed By: #### L 100.0100 ####[facility] [address] [place], [address] MCHC (RBC) [Mass/Vol] 33.8 g/dL Normal 32-36 [facility] Comment on above: Performed By: #### L 100.0100 ####[facility] [address] [place], [address] MCV (RBC) [Entitic vol] 88.8 fL Normal 80-94 [facility] Comment on above: Performed By: #### L 100.0100 ####[facility] [address] [place], [address] Monocytes/100 WBC (Bld) 11.5 % High 0-10 [facility] Comment on above: Performed By: #### L 100.0100 ####[facility] [address] [place], [address] Neutrophils/100 WBC (Bld) 67.2 % Normal 47-70 [facility] Comment on above: Performed By: #### L 100.0100 ####[facility] [address] [place], [address] Nucleated RBC (Bld) [#/Vol] 0 10*3/uL Normal 0-5 [facility] Comment on above: Performed By: #### L 100.0100 ####[facility] [address] [place], [address] Platelet mean volume (Bld) [Entitic vol] 10.7 fL Normal 6.2-12.0 [facility] Comment on above: Performed By: #### L 100.0100 ####[facility] [address] [place], [address] Platelets (Bld) [#/Vol] 109 10*3/uL Low 150-450 [facility] Comment on above: Performed By: #### L 100.0100 ####[facility] [address] [place], [address] RBC (Bld) [#/Vol] 2.50 10*6/uL Low 4.6-6.2 [facility] Comment on above: Performed By: #### L 100.0100 ####[facility] [address] [place], [address] RDW SD 58.8 fl High 35.1-43.9 [facility] Comment on above: Performed By: #### L 100.0100 ####[facility] [address] [place], [place], [address] WBC (Bld) [#/Vol] 8.4 10*3/uL Normal 4.4-11.0 [facility] Comment on above: Performed By: #### L 100.0100 ####[facility] [address] [place], [place], [id number] Serum or plasma vancomycin m easurement (mass/volume)Ordered By: Cielo Tovar on 01-16-2025 Vancomycin [Mass/Vol] 7.7 ug/mL 0.0-15.0 [facility] Magnetic resonance imaging r eportOrdered By: Kenneth Barton on 01-14-2025 Study report [facility] Work Phone: Trough vancomycin levelOrder ed By: Cielo Tovar on 01-14-2025 Vancomycin trough [Mass/Vol] 21.4 ug/mL High 5.0-15.0 [facility] Iron measurement (mass/mass) Ordered By: Cielo Tovar on 01-13-2025 Iron (Unsp spec) [Mass/Mass] 110 ug/dL 65-175 [facility] Magnetic resonance imaging r eportOrdered By: Jerry Osorio on 01-13-2025 Study report [facility] No Panel InformationOrdered By: Cielo Tovar on 01-13-2025 101 ug/dL Low 228-428 [facility] Serum or plasma ferritin wei surement (mass/volume)Ordered By: Cielo Tovar on 01-13-2025 Ferritin [Mass/Vol] 76 ng/mL 37-417 [facility] Serum or plasma iron saturat ion measurement (mass fraction)Ordered By: Cielo Tovar on 01-13-2025 Iron saturation [Mass fraction] 52.1 % 9-55 [facility] Absolute lymphocyte countOrd ered By: Breann Mendez on 01-09-2025 Lymphocytes Auto (Unsp spec) [#/Vol] 0.95 10*3/uL 0.83-4.51 [facility] Anion gap in Serum or Plasma Ordered By: Remus Vanessa on 01-09-2025 Anion gap [Moles/Vol] 13 mmol/L 5-15 [facility] Automated lymphocyte count a s percentage of total leukocytesOrdered By: Remus Ungur on 01-09-2025 Lymphocytes/100 WBC Auto (Unsp spec) 7.2 % Low 19-41 [facility] BUN/creatinine ratioOrdered By: Remus Ungur on 01-09-2025 Urea nitrogen/Creatinine [Mass ratio] 13.4 mg/mg 10-20 [facility] Basophil percentageOrdered B y: Remus Ungur on 01-09-2025 Basophils/100 WBC (Bld) 0.4 % 0-1 [facility] Bilirubin Test strip Ql (U)O rdered By: Remus Ungur on 01-09-2025 Bilirubin Ql (U) 1 mg/dL High Negative [facility] Bilirubin, totalOrdered By: Remus Ungur on 01-09-2025 Bilirubin [Mass/Vol] 1.15 mg/dL 0.00-1.30 [facility] Blood cultureOrdered By: Rem us Ungbrandon on 01-09-2025 Bacteria identified Cx Nom (Bld) No growth in 5 days. [facility] Bacteria identified Cx Nom (Bld) No growth in 5 days. [facility] CO2 (BldV) [Moles/Vol]Ordere d By: Yaritza Leo on 01-09-2025 CO2 [Moles/Vol] 15 mmol/L Low 23-33 [facility] Carbon dioxide, total [Moles /volume] in Central venous bloodOrdered By: Remus Ungbrandon on 01-09-2025 CO2 [Moles/Vol] 13.6 mmol/L Low 21.0-32.0 [facility] Chloride assayOrdered By: Josselyn Mendez on 01-09-2025 Chloride [Moles/Vol] 103 mmol/L 98-108 [facility] Eosinophil percentageOrdered By: Remus Ungur on 01-09-2025 Eosinophils/100 WBC (Bld) 4.2 % 0-5 [facility] Erythrocyte distribution wid th ratioOrdered By: Remus Ungur on 01-09-2025 Erythrocyte distribution width (RBC) [Ratio] 18.1 % High 11.6-14.6 [facility] Erythrocyte distribution wid th standard deviationOrdered By: Remus Ungur on 01-09-2025 Erythrocyte distribution width (RBC) [Ratio] 57.5 fl High 35.1-43.9 [facility] Glomerular filtration rate ( GFR) estimation/1.73 sq m using serum, plasma, or whole bOrdered By: Breann Mendez on 01-09-2025 GFR/1.73 sq M.predicted among non-blacks MDRD (S/P/Bld) [Vol rate/Area] 44 mL/min/{1.73_m2} Low >60 [facility] Hematocrit Auto (Bld) [Volum e fraction]Ordered By: Breann Mendez on 01-09-2025 Hematocrit (Bld) [Volume fraction] 24.3 % Low 40-54 [facility] Hemoglobin measurementOrdere d By: Breann Mendez on 01-09-2025 Hemoglobin (Bld) [Mass/Vol] 7.9 g/dL Low 13.0-16.5 [facility] Immature granulocytes/100 WB C Auto (Bld)Ordered By: Breann Mendez on 01-09-2025 Immature granulocytes/100 WBC (Bld) 0.900 % 0.0-0.9 [facility] Ketones Test strip Ql (U)Ord ered By: Breann Mendez on 01-09-2025 Ketones Ql (U) 5 mg/dl High Negative [facility] MCV (mean corpuscular volume ) determinationOrdered By: Breann Mendez on 01-09-2025 MCV (RBC) [Entitic vol] 90.3 fL 80-94 [facility] Mean corpuscular hemoglobin (MCH) determinationOrdered By: Breann Mendez on 01-09-2025 MCH (RBC) [Entitic mass] 29.4 pg 27.0-32.0 [facility] Monocyte percentageOrdered B y: Breann Mendez on 01-09-2025 Monocytes/100 WBC (Bld) 6.7 % 0-10 [facility] Mucus LM Ql (Urine sed)Order ed By: Breann Mendez on 01-09-2025 Mucus Ql (Urine sed) 0 SEEN /hpf [facility] Neutrophil percentageOrdered By: Breann Mendez on 01-09-2025 Neutrophils/100 WBC (Bld) 80.6 % High 47-70 [facility] Nitrite Test strip Ql (U)Ord ered By: Breann Mendez on 01-09-2025 Nitrite Ql (U) Negative Negative [facility] No Panel InformationOrdered By: Yaritza Leo on 01-09-2025 TRAMAINE [facility] Not entered [facility] No Panel InformationOrdered By: Breann Mendez on 01-09-2025 68 U/L High <38 [facility] Platelet countOrdered By: Josselyn Mendez on 01-09-2025 Platelets (Bld) [#/Vol] 114 10*3/uL Low 150-450 [facility] Potassium measurement (mass/ volume)Ordered By: Breann Mendez on 01-09-2025 Potassium (Unsp spec) [Mass/Vol] 3.6 mmol/L 3.3-5.1 [facility] Protein Test strip Ql (U)Ord ered By: Breann Mendez on 01-09-2025 Protein Ql (U) 500 mg/dl High Negative [facility] RBC Auto (Bld) [#/Vol]Ordere d By: Breann Mendez on 01-09-2025 RBC (Bld) [#/Vol] 2.69 10*6/uL Low 4.6-6.2 [facility] Serum creatinine measurement (mass/volume)Ordered By: Breann Mendez on 01-09-2025 Creatinine [Mass/Vol] 1.77 mg/dL High 0.70-1.20 [facility] Serum globulin measurementOr dered By: Breann Mendez on 01-09-2025 Globulin (S) [Mass/Vol] 2.9 g/dL 2.2-4.2 [facility] Serum glucose measurement (m ass/volume)Ordered By: Breann Mendez on 01-09-2025 Glucose [Mass/Vol] 149 mg/dL High 70-99 [facility] Serum or plasma alanine thomas otransferase (ALT) measurementOrdered By: Breann Mendez on 01-09-2025 ALT [Catalytic activity/Vol] 42 U/L <47 [facility] Serum or plasma albumin roosevelt urement (mass/volume)Ordered By: Breann Mendez on 01-09-2025 Albumin [Mass/Vol] 2.4 g/dL Low 3.5-5.0 [facility] Serum or plasma albumin/glob ulin mass ratioOrdered By: Breann Mendez on 01-09-2025 Albumin/Globulin [Mass ratio] 0.8 {ratio} Low 0.9-2.4 [facility] Serum or plasma alkaline kendrick sphatase measurementOrdered By: Breann Mendez on 01-09-2025 ALP [Catalytic activity/Vol] 196 U/L High 40-129 [facility] Serum or plasma calcium roosevelt urement (mass/volume)Ordered By: Remus Mendez on 01-09-2025 Calcium [Mass/Vol] 8.4 mg/dL 7.6-11.0 [facility] Serum or plasma creatine kin ase activityOrdered By: Yaritza Leo on 01-09-2025 CK [Catalytic activity/Vol] 34 U/L 24-195 [facility] Serum or plasma urea nitroge n measurement (mass/volume)Ordered By: Breann Mendez on 01-09-2025 Urea nitrogen [Mass/Vol] 24 mg/dL High 4-19 [facility] Sodium levelOrdered By: Veena Mendez on 01-09-2025 Sodium [Moles/Vol] 129 mmol/L Low 133-145 [facility] Squamous epithelial cells de tection in urine sediment by light microscopyOrdered By: Breann Mendez on 01-09-2025 Epithelial cells.squamous LM Ql (Urine sed) 0-5 SEEN /hpf 0-5 [facility] Total proteinOrdered By: Ramona Mendez on 01-09-2025 Protein [Mass/Vol] 5.3 g/dL Low 5.9-8.4 [facility] Urine clarityOrdered By: Rem us Mendez on 01-09-2025 Clarity (U) Turbid Clear [facility] Urine color determinationOrd ered By: Breann Mendez on 01-09-2025 Color (U) Red Yellow [facility] Urine cultureOrdered By: Rem us Mendez on 01-09-2025 Bacteria identified Cx Nom (U) Yeast, not Mary albicans Abnormal [facility] Urine glucose detectionOrder ed By: Breann Mendez on 01-09-2025 Glucose Ql (U) Normal mg/dl Normal [facility] Urine leukocyte esterase det ection by dipstickOrdered By: Breann Mendez on 01-09-2025 Leukocyte esterase Test strip Ql (U) 500 /ul High Negative [facility] Urine pHOrdered By: Breann Landers gur on 01-09-2025 pH (U) 6.0 [pH] 5.0 - 8.0 [facility] Urine sediment bacteria coun t by microscopy (number/high power field)Ordered By: Breann Mendez on 01-09-2025 Bacteria LM.HPF (Urine sed) [#/Area] 0 /[HPF] None Seen [facility] Urine specific gravity measu rementOrdered By: Breann Mendez on 01-09-2025 Specific gravity (U) [Rel density] 1.015 1.002-1.030 [facility] Urine urobilinogen measureme ntOrdered By: Breann Mendez on 01-09-2025 Urobilinogen Ql (U) Normal mg/dl Normal [facility] Venous blood ammonia measure mentOrdered By: Lupillo Robbins on 01-09-2025 Ammonia (P) [Moles/Vol] 61.1 umol/L High 16-60 [facility] Venous blood base excess wei surementOrdered By: Yaritza Leo on 01-09-2025 Base excess Calc (BldV) [Moles/Vol] -11 mmol/L Low -1.0-3.5 [facility] Venous blood bicarbonate wei surementOrdered By: Yaritza Leo on 01-09-2025 HCO3 (Bld) [Moles/Vol] 14 mmol/L Low 22-26 [facility] Venous blood pH measurementO rdered By: Yaritza Leo on 01-09-2025 pH (BldV) 7.36 [pH] 7.32-7.42 [facility] Venous blood partial pressur e of carbon dioxide measurementOrdered By: Yaritza Leo on 01-09-2025 CO2 (BldV) [Partial pressure] 24.7 mm[Hg] Low 41-51 [facility] Venous blood partial pressur e of oxygen measurementOrdered By: Yaritza Leo on 01-09-2025 Oxygen (BldV) [Partial pressure] 49 mm[Hg] High 25-40 [facility] White blood cell (WBC) count Ordered By: Breann Mendez on 01-09-2025 WBC (Bld) [#/Vol] 13.2 10*3/uL High 4.4-11.0 [facility] White blood cell countOrdere d By: Breann Mendez on 01-09-2025 White blood cell count 50-100 SEEN /hpf 0-5 [facility] Absolute lymphocyte countOrd ered By: Hill Acuña on 01-05-2025 Lymphocytes Auto (Unsp spec) [#/Vol] 0.94 10*3/uL 0.83-4.51 [facility] Anion gap in Serum or Plasma Ordered By: Hill Acuña on 01-05-2025 Anion gap [Moles/Vol] 9 mmol/L 5-15 [facility] Automated lymphocyte count a s percentage of total leukocytesOrdered By: Hill Acuña on 01-05-2025 Lymphocytes/100 WBC Auto (Unsp spec) 13.4 % Low 19-41 [facility] BUN/creatinine ratioOrdered By: Hill Acuña on 01-05-2025 Urea nitrogen/Creatinine [Mass ratio] 11.9 mg/mg 10-20 [facility] Basophil percentageOrdered B y: Hill Acuña on 01-05-2025 Basophils/100 WBC (Bld) 0.4 % 0-1 [facility] Carbon dioxide, total [Moles /volume] in Central venous bloodOrdered By: Hill Acuña on 01-05-2025 CO2 [Moles/Vol] 18.5 mmol/L Low 21.0-32.0 [facility] Chloride assayOrdered By: Kvng Acuña on 01-05-2025 Chloride [Moles/Vol] 101 mmol/L 98-108 [facility] Eosinophil percentageOrdered By: Hill Acuña on 01-05-2025 Eosinophils/100 WBC (Bld) 5.1 % High 0-5 [facility] Erythrocyte distribution wid th ratioOrdered By: Hill Acuña on 01-05-2025 Erythrocyte distribution width (RBC) [Ratio] 16.4 % High 11.6-14.6 [facility] Erythrocyte distribution wid th standard deviationOrdered By: Hill Acuña on 01-05-2025 Erythrocyte distribution width (RBC) [Ratio] 51.8 fl High 35.1-43.9 [facility] Glomerular filtration rate ( GFR) estimation/1.73 sq m using serum, plasma, or whole bOrdered By: Hill Acuña on 01-05-2025 GFR/1.73 sq M.predicted among non-blacks MDRD (S/P/Bld) [Vol rate/Area] 92 mL/min/{1.73_m2} >60 [facility] Glucose measurement at [facility] deOrdered By: Hill Acuña on 01-05-2025 Glucose [Mass/Vol] 163 mg/dL High 74-106 [facility] Glucose [Mass/Vol] 191 mg/dL High 74-106 [facility] Hematocrit Auto (Bld) [Volum e fraction]Ordered By: Hill Acuña on 01-05-2025 Hematocrit (Bld) [Volume fraction] 22.3 % Low 40-54 [facility] Hemoglobin measurementOrdere d By: Hill Acuña on 01-05-2025 Hemoglobin (Bld) [Mass/Vol] 7.5 g/dL Low 13.0-16.5 [facility] Immature granulocytes/100 WB C Auto (Bld)Ordered By: Hill Acuña on 01-05-2025 Immature granulocytes/100 WBC (Bld) 0.400 % 0.0-0.9 [facility] MCV (mean corpuscular volume ) determinationOrdered By: Hill Acuña on 01-05-2025 MCV (RBC) [Entitic vol] 86.4 fL 80-94 [facility] Mean corpuscular hemoglobin (MCH) determinationOrdered By: Hill Acuña on 01-05-2025 MCH (RBC) [Entitic mass] 29.1 pg 27.0-32.0 [facility] Monocyte percentageOrdered B y: Hill Acuña on 01-05-2025 Monocytes/100 WBC (Bld) 11.6 % High 0-10 [facility] Neutrophil percentageOrdered By: Hill Acuña on 01-05-2025 Neutrophils/100 WBC (Bld) 69.1 % 47-70 [facility] Platelet countOrdered By: Kvng Acuña on 01-05-2025 Platelets (Bld) [#/Vol] 81 10*3/uL Low 150-450 [facility] Potassium measurement (mass/ volume)Ordered By: Hill Acuña on 01-05-2025 Potassium (Unsp spec) [Mass/Vol] 3.6 mmol/L 3.3-5.1 [facility] RBC Auto (Bld) [#/Vol]Ordere d By: Hill Acuña on 01-05-2025 RBC (Bld) [#/Vol] 2.58 10*6/uL Low 4.6-6.2 [facility] Serum creatinine measurement (mass/volume)Ordered By: Hill Acuña on 01-05-2025 Creatinine [Mass/Vol] 0.95 mg/dL 0.70-1.20 [facility] Serum glucose measurement (m ass/volume)Ordered By: Hill Acuña on 01-05-2025 Glucose [Mass/Vol] 356 mg/dL High 70-99 [facility] Serum or plasma calcium roosevelt urement (mass/volume)Ordered By: Hill Acuña on 01-05-2025 Calcium [Mass/Vol] 7.9 mg/dL 7.6-11.0 [facility] Serum or plasma urea nitroge n measurement (mass/volume)Ordered By: Hill Acuña on 01-05-2025 Urea nitrogen [Mass/Vol] 11 mg/dL 4-19 [facility] Sodium levelOrdered By: Paulino Acuña on 01-05-2025 Sodium [Moles/Vol] 128 mmol/L Low 133-145 [facility] White blood cell (WBC) count Ordered By: Hill Acuña on 01-05-2025 WBC (Bld) [#/Vol] 7.0 10*3/uL 4.4-11.0 [facility] Bilirubin, totalOrdered By: Hill Acuña on 01-04-2025 Bilirubin [Mass/Vol] 0.90 mg/dL 0.00-1.30 [facility] Blood manual differential co mment interpretation (narrative result)Ordered By: Hill Acuña on 01-04-2025 Manual differential comment Marco Antonio (Bld) [Interp] SCANNED [facility] Magnesium measurement (mass/ volume)Ordered By: Hill Acuña on 01-04-2025 Magnesium (Unsp spec) [Mass/Vol] 1.3 mg/dL Low 1.5-2.2 [facility] No Panel InformationOrdered By: Hill Acuña on 01-04-2025 54 U/L High <38 [facility] Serum globulin measurementOr dered By: Hill Acuña on 01-04-2025 Globulin (S) [Mass/Vol] 2.9 g/dL 2.2-4.2 [facility] Serum or plasma alanine thomas otransferase (ALT) measurementOrdered By: Hill Acuña on 01-04-2025 ALT [Catalytic activity/Vol] 26 U/L <47 [facility] Serum or plasma albumin roosevelt urement (mass/volume)Ordered By: Hill Acuña on 01-04-2025 Albumin [Mass/Vol] 2.4 g/dL Low 3.5-5.0 [facility] Serum or plasma albumin/glob ulin mass ratioOrdered By: Hill Acuña on 01-04-2025 Albumin/Globulin [Mass ratio] 0.9 {ratio} 0.9-2.4 [facility] Serum or plasma alkaline kendrick sphatase measurementOrdered By: Hill Acuña on 01-04-2025 ALP [Catalytic activity/Vol] 171 U/L High 40-129 [facility] Total proteinOrdered By: Hugo Acuña on 01-04-2025 Protein [Mass/Vol] 5.3 g/dL Low 5.9-8.4 [facility] Absolute lymphocyte countOrd ered By: Roddy Reeves on 01-02-2025 Lymphocytes Auto (Unsp spec) [#/Vol] 1.55 10*3/uL 0.83-4.51 [facility] Anion gap in Serum or Plasma Ordered By: Roddy Reeves on 01-02-2025 Anion gap [Moles/Vol] 17 mmol/L High 5-15 [facility] Automated lymphocyte count a s percentage of total leukocytesOrdered By: Roddy Reeves on 01-02-2025 Lymphocytes/100 WBC Auto (Unsp spec) 12.2 % Low 19-41 [facility] BUN/creatinine ratioOrdered By: Roddy Reeves on 01-02-2025 Urea nitrogen/Creatinine [Mass ratio] 12.9 mg/mg 10-20 [facility] Basophil percentageOrdered B y: Roddy Reeves on 01-02-2025 Basophils/100 WBC (Bld) 0.4 % 0-1 [facility] Bilirubin Test strip Ql (U)O rdered By: Roddy Reeves on 01-02-2025 Bilirubin Ql (U) Negative Negative [facility] Bilirubin, totalOrdered By: Roddy Reeves on 01-02-2025 Bilirubin [Mass/Vol] 0.90 mg/dL 0.00-1.30 [facility] Carbon dioxide, total [Moles /volume] in Central venous bloodOrdered By: Roddy Reeves on 01-02-2025 CO2 [Moles/Vol] 19.6 mmol/L Low 21.0-32.0 [facility] Chloride assayOrdered By: Catrachito Reeves on 01-02-2025 Chloride [Moles/Vol] 95 mmol/L Low 98-108 [facility] Eosinophil percentageOrdered By: Roddy Reeves on 01-02-2025 Eosinophils/100 WBC (Bld) 6.9 % High 0-5 [facility] Erythrocyte distribution wid th ratioOrdered By: Roddy Reeves on 01-02-2025 Erythrocyte distribution width (RBC) [Ratio] 16.4 % High 11.6-14.6 [facility] Erythrocyte distribution wid th standard deviationOrdered By: Roddy Reeves on 01-02-2025 Erythrocyte distribution width (RBC) [Ratio] 51.1 fl High 35.1-43.9 [facility] Glomerular filtration rate ( GFR) estimation/1.73 sq m using serum, plasma, or whole bOrdered By: Roddy Reeves on 01-02-2025 GFR/1.73 sq M.predicted among non-blacks MDRD (S/P/Bld) [Vol rate/Area] 19 mL/min/{1.73_m2} Low >60 [facility] Hematocrit Auto (Bld) [Volum e fraction]Ordered By: Roddy Reeves on 01-02-2025 Hematocrit (Bld) [Volume fraction] 28.0 % Low 40-54 [facility] Hemoglobin measurementOrdere d By: Roddy Reeves on 01-02-2025 Hemoglobin (Bld) [Mass/Vol] 9.5 g/dL Low 13.0-16.5 [facility] Immature granulocytes/100 WB C Auto (Bld)Ordered By: Roddy Reeves on 01-02-2025 Immature granulocytes/100 WBC (Bld) 0.600 % 0.0-0.9 [facility] Ketones Test strip Ql (U)Ord ered By: Roddy Reeves on 01-02-2025 Ketones Ql (U) 5 mg/dl High Negative [facility] MCV (mean corpuscular volume ) determinationOrdered By: Roddy Reeves on 01-02-2025 MCV (RBC) [Entitic vol] 87.2 fL 80-94 [facility] Magnesium measurement (mass/ volume)Ordered By: Roddy Reeves on 01-02-2025 Magnesium (Unsp spec) [Mass/Vol] 2.0 mg/dL 1.5-2.2 [facility] Mean corpuscular hemoglobin (MCH) determinationOrdered By: Roddy Reeves on 01-02-2025 MCH (RBC) [Entitic mass] 29.6 pg 27.0-32.0 [facility] Monocyte percentageOrdered B y: Roddy Reeves on 01-02-2025 Monocytes/100 WBC (Bld) 11.9 % High 0-10 [facility] Mucus LM Ql (Urine sed)Order ed By: Roddy Reeves on 01-02-2025 Mucus Ql (Urine sed) 0 SEEN /hpf [facility] Neutrophil percentageOrdered By: Roddy Reeves on 01-02-2025 Neutrophils/100 WBC (Bld) 68.0 % 47-70 [facility] Nitrite Test strip Ql (U)Ord ered By: Roddy Reeves on 01-02-2025 Nitrite Ql (U) Negative Negative [facility] No Panel InformationOrdered By: Roddy Reeves on 01-02-2025 37 U/L <38 [facility] Platelet countOrdered By: Catrachito Reeves on 01-02-2025 Platelets (Bld) [#/Vol] 171 10*3/uL 150-450 [facility] Potassium measurement (mass/ volume)Ordered By: Roddy Reeves on 01-02-2025 Potassium (Unsp spec) [Mass/Vol] 2.6 mmol/L Low 3.3-5.1 [facility] Protein Test strip Ql (U)Ord ered By: Roddy Reeves on 01-02-2025 Protein Ql (U) 100 mg/dl High Negative [facility] RBC Auto (Bld) [#/Vol]Ordere d By: Roddy Reeves on 01-02-2025 RBC (Bld) [#/Vol] 3.21 10*6/uL Low 4.6-6.2 [facility] Serum creatinine measurement (mass/volume)Ordered By: Roddy Reeves on 01-02-2025 Creatinine [Mass/Vol] 3.54 mg/dL High 0.70-1.20 [facility] Serum globulin measurementOr dered By: Roddy Reeves on 01-02-2025 Globulin (S) [Mass/Vol] 3.4 g/dL 2.2-4.2 [facility] Serum glucose measurement (m ass/volume)Ordered By: Roddy Reeves on 01-02-2025 Glucose [Mass/Vol] 164 mg/dL High 70-99 [facility] Serum or plasma alanine thomas otransferase (ALT) measurementOrdered By: Roddy Reeves on 01-02-2025 ALT [Catalytic activity/Vol] 23 U/L <47 [facility] Serum or plasma albumin roosevelt urement (mass/volume)Ordered By: Roddy Reeves on 01-02-2025 Albumin [Mass/Vol] 2.8 g/dL Low 3.5-5.0 [facility] Serum or plasma albumin/glob ulin mass ratioOrdered By: Roddy Reeves on 01-02-2025 Albumin/Globulin [Mass ratio] 0.8 {ratio} Low 0.9-2.4 [facility] Serum or plasma alkaline kendrick sphatase measurementOrdered By: Roddy Reeves on 01-02-2025 ALP [Catalytic activity/Vol] 191 U/L High 40-129 [facility] Serum or plasma calcium roosevelt urement (mass/volume)Ordered By: Roddy Reeves on 01-02-2025 Calcium [Mass/Vol] 9.0 mg/dL 7.6-11.0 [facility] Serum or plasma ethanol roosevelt urement (mass/volume)Ordered By: Roddy Reeves on 01-02-2025 Ethanol [Mass/Vol] mg/dL <10.1 [facility] Serum or plasma urea nitroge n measurement (mass/volume)Ordered By: Roddy Reeves on 01-02-2025 Urea nitrogen [Mass/Vol] 46 mg/dL High 4-19 [facility] Sodium levelOrdered By: Valentín Reeves on 01-02-2025 Sodium [Moles/Vol] 132 mmol/L Low 133-145 [facility] Squamous epithelial cells de tection in urine sediment by light microscopyOrdered By: Roddy Reeves on 01-02-2025 Epithelial cells.squamous LM Ql (Urine sed) 0 SEEN /hpf 0-5 [facility] Total proteinOrdered By: Zoila Reeves on 01-02-2025 Protein [Mass/Vol] 6.1 g/dL 5.9-8.4 [facility] Urine clarityOrdered By: Zoila Reeves on 01-02-2025 Clarity (U) Turbid Clear [facility] Urine color determinationOrd ered By: Roddy Reeves on 01-02-2025 Color (U) Red Yellow [facility] Urine cultureOrdered By: Zoila Reeves on 01-02-2025 Bacteria identified Cx Nom (U) Yeast, not Mary albicans Abnormal [facility] Urine glucose detectionOrder ed By: Roddy Reeves on 01-02-2025 Glucose Ql (U) Normal mg/dl Normal [facility] Urine leukocyte esterase det ection by dipstickOrdered By: Roddy Reeves on 01-02-2025 Leukocyte esterase Test strip Ql (U) 500 /ul High Negative [facility] Urine pHOrdered By: Roddy gonzalez on 01-02-2025 pH (U) 6.0 [pH] 5.0 - 8.0 [facility] Urine sediment bacteria coun t by microscopy (number/high power field)Ordered By: Roddy Reeves on 01-02-2025 Bacteria LM.HPF (Urine sed) [#/Area] 3 /[HPF] None Seen [facility] Urine specific gravity measu rementOrdered By: Roddy Reeves on 01-02-2025 Specific gravity (U) [Rel density] 1.015 1.002-1.030 [facility] Urine urobilinogen measureme ntOrdered By: Roddy Reeves on 01-02-2025 Urobilinogen Ql (U) Normal mg/dl Normal [facility] Venous blood ammonia measure mentOrdered By: Roddy Reeves on 01-02-2025 Ammonia (P) [Moles/Vol] 40.4 umol/L 16-60 [facility] White blood cell (WBC) count Ordered By: Roddy Reeves on 01-02-2025 WBC (Bld) [#/Vol] 12.7 10*3/uL High 4.4-11.0 [facility] White blood cell countOrdere d By: Roddy Reeves on 01-02-2025 White blood cell count 25-50 SEEN /hpf 0-5 [facility] Absolute lymphocyte countOrd ered By: Mina Blood on 12-30-2024 Lymphocytes Auto (Unsp spec) [#/Vol] 1.31 10*3/uL 0.83-4.51 [facility] Anion gap in Serum or Plasma Ordered By: Mina Blood on 12-30-2024 Anion gap [Moles/Vol] 15 mmol/L 5-15 [facility] Automated lymphocyte count a s percentage of total leukocytesOrdered By: Mina Blood on 12-30-2024 Lymphocytes/100 WBC Auto (Unsp spec) 14.0 % Low 19-41 [facility] BUN/creatinine ratioOrdered By: Mina Blood on 12-30-2024 Urea nitrogen/Creatinine [Mass ratio] 14.1 mg/mg 10-20 [facility] Basophil percentageOrdered B y: Mina Blood on 12-30-2024 Basophils/100 WBC (Bld) 0.4 % 0-1 [facility] Bilirubin Test strip Ql (U)O rdered By: Mina Blood on 12-30-2024 Bilirubin Ql (U) Negative Negative [facility] Carbon dioxide, total [Moles /volume] in Central venous bloodOrdered By: Mina Blood on 12-30-2024 CO2 [Moles/Vol] 22.1 mmol/L 21.0-32.0 [facility] Chloride assayOrdered By: Marcella Blood on 12-30-2024 Chloride [Moles/Vol] 91 mmol/L Low 98-108 [facility] Eosinophil percentageOrdered By: Mina Blood on 12-30-2024 Eosinophils/100 WBC (Bld) 6.2 % High 0-5 [facility] Erythrocyte distribution wid th ratioOrdered By: Mina Blood on 12-30-2024 Erythrocyte distribution width (RBC) [Ratio] 16.1 % High 11.6-14.6 [facility] Erythrocyte distribution wid th standard deviationOrdered By: Mina Blood on 12-30-2024 Erythrocyte distribution width (RBC) [Ratio] 50.9 fl High 35.1-43.9 [facility] Glomerular filtration rate ( GFR) estimation/1.73 sq m using serum, plasma, or whole bOrdered By: Mina Blood on 12-30-2024 GFR/1.73 sq M.predicted among non-blacks MDRD (S/P/Bld) [Vol rate/Area] 37 mL/min/{1.73_m2} Low >60 [facility] Glucose measurement at [facility] deOrdered By: Mina Blood on 12-30-2024 Glucose [Mass/Vol] 453 mg/dL High 74-106 [facility] Hematocrit Auto (Bld) [Volum e fraction]Ordered By: Mina Blood on 12-30-2024 Hematocrit (Bld) [Volume fraction] 25.8 % Low 40-54 [facility] Hemoglobin measurementOrdere d By: Mina Blood on 12-30-2024 Hemoglobin (Bld) [Mass/Vol] 8.7 g/dL Low 13.0-16.5 [facility] Immature granulocytes/100 WB C Auto (Bld)Ordered By: Mina Blood on 12-30-2024 Immature granulocytes/100 WBC (Bld) 0.600 % 0.0-0.9 [facility] Ketones Test strip Ql (U)Ord ered By: Mina Blood on 12-30-2024 Ketones Ql (U) Negative Negative [facility] MCV (mean corpuscular volume ) determinationOrdered By: Mina Blood on 12-30-2024 MCV (RBC) [Entitic vol] 88.1 fL 80-94 [facility] Magnesium measurement (mass/ volume)Ordered By: Mina Blood on 12-30-2024 Magnesium (Unsp spec) [Mass/Vol] 1.3 mg/dL Low 1.5-2.2 [facility] Mean corpuscular hemoglobin (MCH) determinationOrdered By: Mina Blood on 12-30-2024 MCH (RBC) [Entitic mass] 29.7 pg 27.0-32.0 [facility] Monocyte percentageOrdered B y: Mina Blood on 12-30-2024 Monocytes/100 WBC (Bld) 9.1 % 0-10 [facility] Mucus LM Ql (Urine sed)Order ed By: Mina Blood on 12-30-2024 Mucus Ql (Urine sed) 0 SEEN /hpf [facility] Neutrophil percentageOrdered By: Mina Blood on 12-30-2024 Neutrophils/100 WBC (Bld) 69.7 % 47-70 [facility] Nitrite Test strip Ql (U)Ord ered By: Mina Blood on 12-30-2024 Nitrite Ql (U) Negative Negative [facility] Platelet countOrdered By: Marcella Blood on 12-30-2024 Platelets (Bld) [#/Vol] 131 10*3/uL Low 150-450 [facility] Potassium measurement (mass/ volume)Ordered By: Mina Blood on 12-30-2024 Potassium (Unsp spec) [Mass/Vol] 3.2 mmol/L Low 3.3-5.1 [facility] Protein Test strip Ql (U)Ord ered By: Mina Blood on 12-30-2024 Protein Ql (U) 100 mg/dl High Negative [facility] RBC Auto (Bld) [#/Vol]Ordere d By: Mina Blood on 12-30-2024 RBC (Bld) [#/Vol] 2.93 10*6/uL Low 4.6-6.2 [facility] Serum creatinine measurement (mass/volume)Ordered By: Mina Blood on 12-30-2024 Creatinine [Mass/Vol] 2.05 mg/dL High 0.70-1.20 [facility] Serum glucose measurement (m ass/volume)Ordered By: Mina Blood on 12-30-2024 Glucose [Mass/Vol] 608 mg/dL High 70-99 [facility] Serum or plasma calcium roosevelt urement (mass/volume)Ordered By: Mina Blood on 12-30-2024 Calcium [Mass/Vol] 9.1 mg/dL 7.6-11.0 [facility] Serum or plasma urea nitroge n measurement (mass/volume)Ordered By: Mina Blood on 12-30-2024 Urea nitrogen [Mass/Vol] 29 mg/dL High 4-19 [facility] Sodium levelOrdered By: Magen Blood on 12-30-2024 Sodium [Moles/Vol] 128 mmol/L Low 133-145 [facility] Squamous epithelial cells de tection in urine sediment by light microscopyOrdered By: Mina Blood on 12-30-2024 Epithelial cells.squamous LM Ql (Urine sed) 0-5 SEEN /hpf 0-5 [facility] Transitional cells detection in urine sediment by light microscopyOrdered By: Mina Blood on 12-30-2024 Transitional cells LM Ql (Urine sed) 0-5 SEEN /hpf 0-5 [facility] Troponin T.cardiac [Mass/vol ume] in Serum or Plasma by High sensitivity methodOrdered By: Mina Blood on 12-30-2024 Troponin T.cardiac High sensitivity method [Mass/Vol] 20 ng/L <22 [facility] Troponin T.cardiac High sensitivity method [Mass/Vol] 19 ng/L <22 [facility] Urine clarityOrdered By: Ever Blood on 12-30-2024 Clarity (U) Cloudy Clear [facility] Urine color determinationOrd ered By: Mina Blood on 12-30-2024 Color (U) Lexis Yellow [facility] Urine cultureOrdered By: Ever Blood on 12-30-2024 Bacteria identified Cx Nom (U) GPC Poss Enterococcus sp Abnormal [facility] Bacteria identified Cx Nom (U) Positive Abnormal [facility] Urine glucose detectionOrder ed By: Mina Blood on 12-30-2024 Glucose Ql (U) 1000 mg/dl High Normal [facility] Urine leukocyte esterase det ection by dipstickOrdered By: Mina Blood on 12-30-2024 Leukocyte esterase Test strip Ql (U) 500 /ul High Negative [facility] Urine pHOrdered By: Mina ferrer on 12-30-2024 pH (U) 6.5 [pH] 5.0 - 8.0 [facility] Urine sediment bacteria coun t by microscopy (number/high power field)Ordered By: Mina Blood on 12-30-2024 Bacteria LM.HPF (Urine sed) [#/Area] 1 /[HPF] None Seen [facility] Urine specific gravity measu rementOrdered By: Mina Blood on 12-30-2024 Specific gravity (U) [Rel density] 1.010 1.002-1.030 [facility] Urine urobilinogen measureme ntOrdered By: Mina Blood on 12-30-2024 Urobilinogen Ql (U) Normal mg/dl Normal [facility] White blood cell (WBC) count Ordered By: Mina Blood on 12-30-2024 WBC (Bld) [#/Vol] 9.4 10*3/uL 4.4-11.0 [facility] White blood cell countOrdere d By: Mina Blood on 12-30-2024 White blood cell count >100 SEEN /hpf 0-5 [facility] Absolute lymphocyte countOrd ered By: Boone Carvajal on 12-26-2024 Lymphocytes Auto (Unsp spec) [#/Vol] 1.69 10*3/uL 0.83-4.51 [facility] Activated partial thrombopla stin time (aPTT) in platelet poor plasma by coagulation aOrdered By: Boone Carvajal on 12-26-2024 aPTT Coag (PPP) [Time] 36.3 s High 24.1-36.2 [facility] Anion gap in Serum or Plasma Ordered By: Boone Carvajal on 12-26-2024 Anion gap [Moles/Vol] 14 mmol/L 5-15 [facility] Automated lymphocyte count a s percentage of total leukocytesOrdered By: Boone Carvajal on 12-26-2024 Lymphocytes/100 WBC Auto (Unsp spec) 15.3 % Low 19-41 [facility] BUN/creatinine ratioOrdered By: Boone Carvajal on 12-26-2024 Urea nitrogen/Creatinine [Mass ratio] 10.3 mg/mg 10-20 [facility] Basophil percentageOrdered B y: Boone Carvajal on 12-26-2024 Basophils/100 WBC (Bld) 0.5 % 0-1 [facility] Beta-hydroxybutyrateOrdered By: Boone Carvajal on 12-26-2024 Beta hydroxybutyrate [Mass/Vol] 0.1 mmol/L 0.0-0.3 [facility] Bilirubin Test strip Ql (U)O rdered By: Boone Carvajal on 12-26-2024 Bilirubin Ql (U) Negative Negative [facility] Bilirubin, totalOrdered By: Boone Carvajal on 12-26-2024 Bilirubin [Mass/Vol] 1.04 mg/dL 0.00-1.30 [facility] Carbon dioxide, total [Moles /volume] in Central venous bloodOrdered By: Boone Carvajal on 12-26-2024 CO2 [Moles/Vol] 20.4 mmol/L Low 21.0-32.0 [facility] Chloride assayOrdered By: Hunter Carvajal on 12-26-2024 Chloride [Moles/Vol] 100 mmol/L 98-108 [facility] Eosinophil percentageOrdered By: Boone Carvajal on 12-26-2024 Eosinophils/100 WBC (Bld) 5.8 % High 0-5 [facility] Erythrocyte distribution wid th ratioOrdered By: Boone Carvajal on 12-26-2024 Erythrocyte distribution width (RBC) [Ratio] 16.3 % High 11.6-14.6 [facility] Erythrocyte distribution wid th standard deviationOrdered By: Boone Carvajal 12-26-2024 Erythrocyte distribution width (RBC) [Ratio] 54.4 fl High 35.1-43.9 [facility] Glomerular filtration rate ( GFR) estimation/1.73 sq m using serum, plasma, or whole bOrdered By: Boone Carvajal on 12-26-2024 GFR/1.73 sq M.predicted among non-blacks MDRD (S/P/Bld) [Vol rate/Area] 30 mL/min/{1.73_m2} Low >60 [facility] Hematocrit Auto (Bld) [Volum e fraction]Ordered By: Boone Carvajal on 12-26-2024 Hematocrit (Bld) [Volume fraction] 29.6 % Low 40-54 [facility] Hemoglobin measurementOrdere d By: Boone Carvajal on 12-26-2024 Hemoglobin (Bld) [Mass/Vol] 9.6 g/dL Low 13.0-16.5 [facility] Immature granulocytes/100 WB C Auto (Bld)Ordered By: Boone Carvajal on 12-26-2024 Immature granulocytes/100 WBC (Bld) 0.500 % 0.0-0.9 [facility] Ketones Test strip Ql (U)Ord ered By: Boone Carvajal on 12-26-2024 Ketones Ql (U) 5 mg/dl High Negative [facility] MCV (mean corpuscular volume ) determinationOrdered By: Boone Carvajal on 12-26-2024 MCV (RBC) [Entitic vol] 90.8 fL 80-94 [facility] Mean corpuscular hemoglobin (MCH) determinationOrdered By: Boone Carvajal on 12-26-2024 MCH (RBC) [Entitic mass] 29.4 pg 27.0-32.0 [facility] Monocyte percentageOrdered B y: Boone Carvajal on 12-26-2024 Monocytes/100 WBC (Bld) 7.4 % 0-10 [facility] Mucus LM Ql (Urine sed)Order ed By: Boone Carvajal on 12-26-2024 Mucus Ql (Urine sed) 0 SEEN /hpf [facility] Neutrophil percentageOrdered By: Boone Carvajal on 12-26-2024 Neutrophils/100 WBC (Bld) 70.5 % High 47-70 [facility] Nitrite Test strip Ql (U)Ord ered By: Boone Carvajal on 12-26-2024 Nitrite Ql (U) Negative Negative [facility] No Panel InformationOrdered By: Boone Carvajal on 12-26-2024 58 U/L High <38 [facility] Platelet countOrdered By: Hunter Carvajal on 12-26-2024 Platelets (Bld) [#/Vol] 139 10*3/uL Low 150-450 [facility] Potassium measurement (mass/ volume)Ordered By: Boone Carvajal on 12-26-2024 Potassium (Unsp spec) [Mass/Vol] 3.5 mmol/L 3.3-5.1 [facility] Protein Test strip Ql (U)Ord ered By: Boone Carvajal on 12-26-2024 Protein Ql (U) 500 mg/dl High Negative [facility] Prothrombin timeOrdered By: Boone Carvajal on 12-26-2024 PT Coag (PPP) [Time] 18.5 s High 11.7-14.9 [facility] RBC Auto (Bld) [#/Vol]Ordere d By: Boone Carvajal on 12-26-2024 RBC (Bld) [#/Vol] 3.26 10*6/uL Low 4.6-6.2 [facility] Serum creatinine measurement (mass/volume)Ordered By: Boone Carvajal on 12-26-2024 Creatinine [Mass/Vol] 2.42 mg/dL High 0.70-1.20 [facility] Serum globulin measurementOr dered By: Boone Carvajal on 12-26-2024 Globulin (S) [Mass/Vol] 3.5 g/dL 2.2-4.2 [facility] Serum glucose measurement (m ass/volume)Ordered By: Boone Carvajal on 12-26-2024 Glucose [Mass/Vol] 386 mg/dL High 70-99 [facility] Serum or plasma alanine thomas otransferase (ALT) measurementOrdered By: Boone Carvajal on 12-26-2024 ALT [Catalytic activity/Vol] 27 U/L <47 [facility] Serum or plasma albumin roosevelt urement (mass/volume)Ordered By: Boone Carvajal on 12-26-2024 Albumin [Mass/Vol] 2.8 g/dL Low 3.5-5.0 [facility] Serum or plasma albumin/glob ulin mass ratioOrdered By: Boone Carvajal on 12-26-2024 Albumin/Globulin [Mass ratio] 0.8 {ratio} Low 0.9-2.4 [facility] Serum or plasma alkaline kendrick sphatase measurementOrdered By: Boone Carvajal 12-26-2024 ALP [Catalytic activity/Vol] 207 U/L High 40-129 [facility] Serum or plasma calcium roosevelt urement (mass/volume)Ordered By: Boone Carvajal on 12-26-2024 Calcium [Mass/Vol] 8.9 mg/dL 7.6-11.0 [facility] Serum or plasma urea nitroge n measurement (mass/volume)Ordered By: Boone Carvajal on 12-26-2024 Urea nitrogen [Mass/Vol] 25 mg/dL High 4-19 [facility] Sodium levelOrdered By: Boone Carvajal on 12-26-2024 Sodium [Moles/Vol] 135 mmol/L 133-145 [facility] Squamous epithelial cells de tection in urine sediment by light microscopyOrdered By: Boone Carvajal on 12-26-2024 Epithelial cells.squamous LM Ql (Urine sed) 0 SEEN /hpf 0-5 [facility] Total proteinOrdered By: Danita Carvajal on 12-26-2024 Protein [Mass/Vol] 6.3 g/dL 5.9-8.4 [facility] Urine clarityOrdered By: Danita Carvajal on 12-26-2024 Clarity (U) Cloudy Clear [facility] Urine color determinationOrd ered By: Boone Carvajal on 12-26-2024 Color (U) Lexis Yellow [facility] Urine cultureOrdered By: Danita Carvajal on 12-26-2024 Bacteria identified Cx Nom (U) Enterococcus 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 [facility] Urine glucose detectionOrder ed By: Boone Carvajal on 12-26-2024 Glucose Ql (U) Normal mg/dl Normal [facility] Urine leukocyte esterase det ection by dipstickOrdered By: Boone Carvajal on 12-26-2024 Leukocyte esterase Test strip Ql (U) 500 /ul High Negative [facility] Urine pHOrdered By: Boone romo on 12-26-2024 pH (U) 6.0 [pH] 5.0 - 8.0 [facility] Urine sediment bacteria coun t by microscopy (number/high power field)Ordered By: Boone Carvajal on 12-26-2024 Bacteria LM.HPF (Urine sed) [#/Area] 0 /[HPF] None Seen [facility] Urine specific gravity measu rementOrdered By: Boone Carvajal on 12-26-2024 Specific gravity (U) [Rel density] 1.015 1.002-1.030 [facility] Urine urobilinogen measureme ntOrdered By: Boone Carvajal on 12-26-2024 Urobilinogen Ql (U) Normal mg/dl Normal [facility] Venous blood ammonia measure mentOrdered By: Boone Carvajal on 12-26-2024 Ammonia (P) [Moles/Vol] 114.0 umol/L High 16-60 [facility] White blood cell (WBC) count Ordered By: Boone Carvajal on 12-26-2024 WBC (Bld) [#/Vol] 11.0 10*3/uL 4.4-11.0 [facility] White blood cell countOrdere d By: Boone Carvajal on 12-26-2024 White blood cell count 25-50 SEEN /hpf 0-5 [facility] Absolute lymphocyte countOrd ered By: Josy Elias on 12-07-2024 Lymphocytes Auto (Unsp spec) [#/Vol] 1.71 10*3/uL 0.83-4.51 [facility] Anion gap in Serum or Plasma Ordered By: Josy Elias on 12-07-2024 Anion gap [Moles/Vol] 12 mmol/L 5-15 [facility] Automated lymphocyte count a s percentage of total leukocytesOrdered By: Josy Elias on 12-07-2024 Lymphocytes/100 WBC Auto (Unsp spec) 18.4 % Low 19-41 [facility] BUN/creatinine ratioOrdered By: Josy Elias on 12-07-2024 Urea nitrogen/Creatinine [Mass ratio] 10.0 mg/mg 10-20 [facility] Basophil percentageOrdered B y: Josy Elias on 12-07-2024 Basophils/100 WBC (Bld) 0.6 % 0-1 [facility] Bilirubin, totalOrdered By: Josy Elias on 12-07-2024 Bilirubin [Mass/Vol] 1.21 mg/dL 0.00-1.30 [facility] CNPTOUTREACHon 12-07-2024 CNPTOUTREACH Normal [facility] Carbon dioxide, total [Moles /volume] in Central venous bloodOrdered By: Josy Elias on 12-07-2024 CO2 [Moles/Vol] 20.0 mmol/L Low 21.0-32.0 [facility] Chloride assayOrdered By: Monica Elias on 12-07-2024 Chloride [Moles/Vol] 103 mmol/L 98-108 [facility] Eosinophil percentageOrdered By: Josy Elias on 12-07-2024 Eosinophils/100 WBC (Bld) 5.1 % High 0-5 [facility] Erythrocyte distribution wid th ratioOrdered By: Josy Elias on 12-07-2024 Erythrocyte distribution width (RBC) [Ratio] 16.9 % High 11.6-14.6 [facility] Erythrocyte distribution wid th standard deviationOrdered By: Josy Elias on 12-07-2024 Erythrocyte distribution width (RBC) [Ratio] 57.4 fl High 35.1-43.9 [facility] Gamma glutamyl transferase ( GGT) measurementOrdered By: Josy Elias on 12-07-2024 Amylase [Catalytic activity/Vol] 103 U/L High 0-65 [facility] Glomerular filtration rate ( GFR) estimation/1.73 sq m using serum, plasma, or whole bOrdered By: Josy Elias on 12-07-2024 GFR/1.73 sq M.predicted among non-blacks MDRD (S/P/Bld) [Vol rate/Area] 44 mL/min/{1.73_m2} Low >60 [facility] Hematocrit Auto (Bld) [Volum e fraction]Ordered By: Josy Elias on 12-07-2024 Hematocrit (Bld) [Volume fraction] 26.2 % Low 40-54 [facility] Hemoglobin A1c percentageOrd ered By: Josy Elias on 12-07-2024 HbA1c (Bld) [Mass fraction] 7.2 % High <5.7 [facility] Hemoglobin measurementOrdere d By: Josy Elias on 12-07-2024 Hemoglobin (Bld) [Mass/Vol] 8.5 g/dL Low 13.0-16.5 [facility] Immature granulocytes/100 WB C Auto (Bld)Ordered By: Josy Elias on 12-07-2024 Immature granulocytes/100 WBC (Bld) 0.300 % 0.0-0.9 [facility] MCV (mean corpuscular volume ) determinationOrdered By: Josy Elias on 12-07-2024 MCV (RBC) [Entitic vol] 93.2 fL 80-94 [facility] Mean corpuscular hemoglobin (MCH) determinationOrdered By: Josy Elias on 12-07-2024 MCH (RBC) [Entitic mass] 30.2 pg 27.0-32.0 [facility] Monocyte percentageOrdered B y: Josy Elias on 12-07-2024 Monocytes/100 WBC (Bld) 12.1 % High 0-10 [facility] Neutrophil percentageOrdered By: Josy Elias on 12-07-2024 Neutrophils/100 WBC (Bld) 63.5 % 47-70 [facility] No Panel InformationOrdered By: Josy Elias on 12-07-2024 37 U/L <38 [facility] Platelet countOrdered By: Monica Elias on 12-07-2024 Platelets (Bld) [#/Vol] 145 10*3/uL Low 150-450 [facility] Potassium measurement (mass/ volume)Ordered By: Josy Elias on 12-07-2024 Potassium (Unsp spec) [Mass/Vol] 3.3 mmol/L 3.3-5.1 [facility] RBC Auto (Bld) [#/Vol]Ordere d By: Josy Elias on 12-07-2024 RBC (Bld) [#/Vol] 2.81 10*6/uL Low 4.6-6.2 [facility] Serum creatinine measurement (mass/volume)Ordered By: Josy Elias on 12-07-2024 Creatinine [Mass/Vol] 1.78 mg/dL High 0.70-1.20 [facility] Serum globulin measurementOr dered By: Josy Elias on 12-07-2024 Globulin (S) [Mass/Vol] 2.9 g/dL 2.2-4.2 [facility] Serum glucose measurement (m ass/volume)Ordered By: Josy Elias on 12-07-2024 Glucose [Mass/Vol] 185 mg/dL High 70-99 [facility] Serum or plasma alanine thomas otransferase (ALT) measurementOrdered By: Josy Elias on 12-07-2024 ALT [Catalytic activity/Vol] 24 U/L <47 [facility] Serum or plasma albumin roosevelt urement (mass/volume)Ordered By: Josy Elias on 12-07-2024 Albumin [Mass/Vol] 2.6 g/dL Low 3.5-5.0 [facility] Serum or plasma albumin/glob ulin mass ratioOrdered By: Josy Elias on 12-07-2024 Albumin/Globulin [Mass ratio] 0.9 {ratio} 0.9-2.4 [facility] Serum or plasma alkaline kendrick sphatase measurementOrdered By: Josy Elias on 12-07-2024 ALP [Catalytic activity/Vol] 241 U/L High 40-129 [facility] Serum or plasma calcium roosevelt urement (mass/volume)Ordered By: Josy Elias on 12-07-2024 Calcium [Mass/Vol] 8.2 mg/dL 7.6-11.0 [facility] Serum or plasma urea nitroge n measurement (mass/volume)Ordered By: Josy Elias on 12-07-2024 Urea nitrogen [Mass/Vol] 18 mg/dL 4-19 [facility] Sodium levelOrdered By: Terrance Elias on 12-07-2024 Sodium [Moles/Vol] 136 mmol/L 133-145 [facility] Total proteinOrdered By: Chinedu Elias on 12-07-2024 Protein [Mass/Vol] 5.5 g/dL Low 5.9-8.4 [facility] White blood cell (WBC) count Ordered By: Josy Elias on 12-07-2024 WBC (Bld) [#/Vol] 9.3 10*3/uL 4.4-11.0 [facility] Absolute lymphocyte countOrd ered By: Hill Acuña on 12-02-2024 Lymphocytes Auto (Unsp spec) [#/Vol] 0.92 10*3/uL 0.83-4.51 [facility] Anion gap in Serum or Plasma Ordered By: Hill Acuña on 12-02-2024 Anion gap [Moles/Vol] 7 mmol/L 5-15 [facility] Automated lymphocyte count a s percentage of total leukocytesOrdered By: Hill Acuña on 12-02-2024 Lymphocytes/100 WBC Auto (Unsp spec) 15.7 % Low 19-41 [facility] BUN/creatinine ratioOrdered By: Hill Acuña on 12-02-2024 Urea nitrogen/Creatinine [Mass ratio] 8.1 mg/mg Low 10-20 [facility] Basophil percentageOrdered B y: Hill Acuña on 12-02-2024 Basophils/100 WBC (Bld) 0.5 % 0-1 [facility] Bilirubin, totalOrdered By: Hill Acuña on 12-02-2024 Bilirubin [Mass/Vol] 1.07 mg/dL 0.00-1.30 [facility] Carbon dioxide, total [Moles /volume] in Central venous bloodOrdered By: Hill Acuña on 12-02-2024 CO2 [Moles/Vol] 21.0 mmol/L 21.0-32.0 [facility] Chloride assayOrdered By: Kvng Acuña on 12-02-2024 Chloride [Moles/Vol] 104 mmol/L 98-108 [facility] Eosinophil percentageOrdered By: Hill Acuña on 12-02-2024 Eosinophils/100 WBC (Bld) 3.6 % 0-5 [facility] Erythrocyte distribution wid th ratioOrdered By: Hill Acuña on 12-02-2024 Erythrocyte distribution width (RBC) [Ratio] 16.2 % High 11.6-14.6 [facility] Erythrocyte distribution wid th standard deviationOrdered By: Hill Acuña on 12-02-2024 Erythrocyte distribution width (RBC) [Ratio] 53.0 fl High 35.1-43.9 [facility] Glomerular filtration rate ( GFR) estimation/1.73 sq m using serum, plasma, or whole bOrdered By: Hill Acuña on 12-02-2024 GFR/1.73 sq M.predicted among non-blacks MDRD (S/P/Bld) [Vol rate/Area] 98 mL/min/{1.73_m2} >60 [facility] deOrdered By: Hill Acuña on 12-02-2024 Glucose [Mass/Vol] 259 mg/dL High 74-106 [facility] Hematocrit Auto (Bld) [Volum e fraction]Ordered By: Hill Acuña on 12-02-2024 Hematocrit (Bld) [Volume fraction] 21.9 % Low 40-54 [facility] Hemoglobin measurementOrdere d By: Hill Acuña on 12-02-2024 Hemoglobin (Bld) [Mass/Vol] 7.2 g/dL Low 13.0-16.5 [facility] Immature granulocytes/100 WB C Auto (Bld)Ordered By: Hill Acuña on 12-02-2024 Immature granulocytes/100 WBC (Bld) 0.500 % 0.0-0.9 [facility] MCV (mean corpuscular volume ) determinationOrdered By: Hill Acuña on 12-02-2024 MCV (RBC) [Entitic vol] 89.8 fL 80-94 [facility] Magnesium measurement (mass/ volume)Ordered By: Hill Acuña on 12-02-2024 Magnesium (Unsp spec) [Mass/Vol] 1.6 mg/dL 1.5-2.2 [facility] Mean corpuscular hemoglobin (MCH) determinationOrdered By: Hill Acuña on 12-02-2024 MCH (RBC) [Entitic mass] 29.5 pg 27.0-32.0 [facility] Monocyte percentageOrdered B y: Hill Acuña on 12-02-2024 Monocytes/100 WBC (Bld) 13.3 % High 0-10 [facility] Neutrophil percentageOrdered By: Hill Acuña on 12-02-2024 Neutrophils/100 WBC (Bld) 66.4 % 47-70 [facility] No Panel InformationOrdered By: Hill Acuña on 12-02-2024 58 U/L High <38 [facility] Platelet countOrdered By: Kvng Acuña on 12-02-2024 Platelets (Bld) [#/Vol] 100 10*3/uL Low 150-450 [facility] Potassium measurement (mass/ volume)Ordered By: Hill Acuña on 12-02-2024 Potassium (Unsp spec) [Mass/Vol] 3.8 mmol/L 3.3-5.1 [facility] RBC Auto (Bld) [#/Vol]Ordere d By: Hill Acuña on 12-02-2024 RBC (Bld) [#/Vol] 2.44 10*6/uL Low 4.6-6.2 [facility] Serum creatinine measurement (mass/volume)Ordered By: Hill Acuña on 12-02-2024 Creatinine [Mass/Vol] 0.90 mg/dL 0.70-1.20 [facility] Serum globulin measurementOr dered By: Hill Acuña on 12-02-2024 Globulin (S) [Mass/Vol] 2.6 g/dL 2.2-4.2 [facility] Serum glucose measurement (m ass/volume)Ordered By: Hlil Acuña on 12-02-2024 Glucose [Mass/Vol] 221 mg/dL High 70-99 [facility] Serum or plasma alanine thomas otransferase (ALT) measurementOrdered By: Hill Acuña on 12-02-2024 ALT [Catalytic activity/Vol] 33 U/L <47 [facility] Serum or plasma albumin roosevelt urement (mass/volume)Ordered By: Hill Acuña on 12-02-2024 Albumin [Mass/Vol] 2.5 g/dL Low 3.5-5.0 [facility] Serum or plasma albumin/glob ulin mass ratioOrdered By: Hill Acuña on 12-02-2024 Albumin/Globulin [Mass ratio] 1.0 {ratio} 0.9-2.4 [facility] Serum or plasma alkaline kendrick sphatase measurementOrdered By: Hill Acuña on 12-02-2024 ALP [Catalytic activity/Vol] 219 U/L High 40-129 [facility] Serum or plasma calcium roosevelt urement (mass/volume)Ordered By: Hill Acuña on 12-02-2024 Calcium [Mass/Vol] 7.8 mg/dL 7.6-11.0 [facility] Serum or plasma urea nitroge n measurement (mass/volume)Ordered By: Hill Acuña on 12-02-2024 Urea nitrogen [Mass/Vol] 7 mg/dL 4-19 [facility] Sodium levelOrdered By: Paulino Acuña on 12-02-2024 Sodium [Moles/Vol] 132 mmol/L Low 133-145 [facility] Total proteinOrdered By: Hugo Acuña on 12-02-2024 Protein [Mass/Vol] 5.1 g/dL Low 5.9-8.4 [facility] Trough vancomycin levelOrder ed By: Maria Guadalupe Shore on 12-02-2024 Vancomycin trough [Mass/Vol] 19.6 ug/mL High 5.0-15.0 [facility] White blood cell (WBC) count Ordered By: Hill Acuña on 12-02-2024 WBC (Bld) [#/Vol] 5.9 10*3/uL 4.4-11.0 [facility] Platelet estimateOrdered By: Hill Acuña on 11-30-2024 Platelets LM Ql (Bld) MOD DEC ADEQ [facility] Serum or plasma vancomycin m easurement (mass/volume)Ordered By: Kathie Powers on 11-30-2024 Vancomycin [Mass/Vol] 17.7 ug/mL High 0.0-15.0 [facility] Prothrombin timeOrdered By: Kathie Powers on 11-29-2024 PT Coag (PPP) [Time] 21.1 s High 11.7-14.9 [facility] Bilirubin Test strip Ql (U)O rdered By: Rachel Joiner on 11-28-2024 Bilirubin Ql (U) Negative Negative [facility] Bilirubin directOrdered By: Rachel Joiner on 11-28-2024 Bilirubin.direct [Mass/Vol] 0.72 mg/dL High 0.00-0.30 [facility] Ketones Test strip Ql (U)Ord ered By: Rachel Joiner on 11-28-2024 Ketones Ql (U) 5 mg/dl High Negative [facility] Mucus LM Ql (Urine sed)Order ed By: Rachel Joiner on 11-28-2024 Mucus Ql (Urine sed) 0 SEEN /hpf [facility] Nitrite Test strip Ql (U)Ord ered By: Rachel Joiner on 11-28-2024 Nitrite Ql (U) Positive High Negative [facility] Protein Test strip Ql (U)Ord ered By: Rachel Joiner on 11-28-2024 Protein Ql (U) 100 mg/dl High Negative [facility] Squamous epithelial cells de tection in urine sediment by light microscopyOrdered By: Rachel Joiner on 11-28-2024 Epithelial cells.squamous LM Ql (Urine sed) 0-5 SEEN /hpf 0-5 [facility] Urine clarityOrdered By: Shi Joiner on 11-28-2024 Clarity (U) Cloudy Clear [facility] Urine color determinationOrd ered By: Rachel Joiner on 11-28-2024 Color (U) Lexis Yellow [facility] Urine cultureOrdered By: Tyree Powers on 11-28-2024 Bacteria identified Cx Nom (U) ESBL Klebsiella pneumoniae pne Abnormal [facility] Urine glucose detectionOrder ed By: Rachel Joiner on 11-28-2024 Glucose Ql (U) Normal mg/dl Normal [facility] Urine leukocyte esterase det ection by dipstickOrdered By: Rachel Joiner on 11-28-2024 Leukocyte esterase Test strip Ql (U) 500 /ul High Negative [facility] Urine pHOrdered By: Rachel silva on 11-28-2024 pH (U) 6.5 [pH] 5.0 - 8.0 [facility] Urine sediment bacteria coun t by microscopy (number/high power field)Ordered By: Rachel Joiner on 11-28-2024 Bacteria LM.HPF (Urine sed) [#/Area] 1 /[HPF] None Seen [facility] Urine specific gravity measu rementOrdered By: Rachel Joiner on 11-28-2024 Specific gravity (U) [Rel density] 1.010 1.002-1.030 [facility] Urine urobilinogen measureme ntOrdered By: Rachel Joiner on 11-28-2024 Urobilinogen Ql (U) Normal mg/dl Normal [facility] Venous blood ammonia measure mentOrdered By: Rachel Joiner on 11-28-2024 Ammonia (P) [Moles/Vol] 68.4 umol/L High 16-60 [facility] White blood cell countOrdere d By: Rachel Joiner on 11-28-2024 White blood cell count 50-100 SEEN /hpf 0-5 [facility] Absolute lymphocyte countOrd ered By: Anurag Irene on 11-25-2024 Lymphocytes Auto (Unsp spec) [#/Vol] 0.92 10*3/uL 0.83-4.51 [facility] Anion gap in Serum or Plasma Ordered By: Anurag Irene on 11-25-2024 Anion gap [Moles/Vol] 8 mmol/L 5-15 [facility] Automated lymphocyte count a s percentage of total leukocytesOrdered By: Anurag Irene on 11-25-2024 Lymphocytes/100 WBC Auto (Unsp spec) 16.7 % Low 19-41 [facility] BUN/creatinine ratioOrdered By: Anurag Irene on 11-25-2024 Urea nitrogen/Creatinine [Mass ratio] 9.2 mg/mg Low 10-20 [facility] Basophil percentageOrdered B y: Anurag Irene on 11-25-2024 Basophils/100 WBC (Bld) 0.4 % 0-1 [facility] Bilirubin, totalOrdered By: Anurag Irene on 11-25-2024 Bilirubin [Mass/Vol] 1.07 mg/dL 0.00-1.30 [facility] Carbon dioxide, total [Moles /volume] in Central venous bloodOrdered By: Anurag Irene on 11-25-2024 CO2 [Moles/Vol] 19.3 mmol/L Low 21.0-32.0 [facility] Chloride assayOrdered By: Francois Irene on 11-25-2024 Chloride [Moles/Vol] 108 mmol/L 98-108 [facility] Eosinophil percentageOrdered By: Anurag Irene on 11-25-2024 Eosinophils/100 WBC (Bld) 4.2 % 0-5 [facility] Erythrocyte distribution wid th ratioOrdered By: Anurag Irene on 11-25-2024 Erythrocyte distribution width (RBC) [Ratio] 15.8 % High 11.6-14.6 [facility] Erythrocyte distribution wid th standard deviationOrdered By: Anurag Irene on 11-25-2024 Erythrocyte distribution width (RBC) [Ratio] 52.9 fl High 35.1-43.9 [facility] Glomerular filtration rate ( GFR) estimation/1.73 sq m using serum, plasma, or whole bOrdered By: Anurag Irene on 11-25-2024 GFR/1.73 sq M.predicted among non-blacks MDRD (S/P/Bld) [Vol rate/Area] 100 mL/min/{1.73_m2} >60 [facility] Glucose measurement at bedsi deOrdered By: Anurag Irene on 11-25-2024 Glucose [Mass/Vol] 222 mg/dL High 74-106 [facility] Hematocrit Auto (Bld) [Volum e fraction]Ordered By: Anurag Irene on 11-25-2024 Hematocrit (Bld) [Volume fraction] 21.5 % Low 40-54 [facility] Hemoglobin measurementOrdere d By: Anurag Irene on 11-25-2024 Hemoglobin (Bld) [Mass/Vol] 7.0 g/dL Low 13.0-16.5 [facility] Immature granulocytes/100 WB C Auto (Bld)Ordered By: Anurag Irene on 11-25-2024 Immature granulocytes/100 WBC (Bld) 0.400 % 0.0-0.9 [facility] MCV (mean corpuscular volume ) determinationOrdered By: Anurag Irene on 11-25-2024 MCV (RBC) [Entitic vol] 93.1 fL 80-94 [facility] Mean corpuscular hemoglobin (MCH) determinationOrdered By: Anurag Irene on 11-25-2024 MCH (RBC) [Entitic mass] 30.3 pg 27.0-32.0 [facility] Monocyte percentageOrdered B y: Anurag Irene on 11-25-2024 Monocytes/100 WBC (Bld) 12.7 % High 0-10 [facility] Neutrophil percentageOrdered By: Anurag Irene on 11-25-2024 Neutrophils/100 WBC (Bld) 65.6 % 47-70 [facility] No Panel InformationOrdered By: Anurag Irene on 11-25-2024 60 U/L High <38 [facility] Platelet countOrdered By: Francois Irene on 11-25-2024 Platelets (Bld) [#/Vol] 82 10*3/uL Low 150-450 [facility] Potassium measurement (mass/ volume)Ordered By: Anurag Irene on 11-25-2024 Potassium (Unsp spec) [Mass/Vol] 4.2 mmol/L 3.3-5.1 [facility] RBC Auto (Bld) [#/Vol]Ordere d By: Anurag Irene on 11-25-2024 RBC (Bld) [#/Vol] 2.31 10*6/uL Low 4.6-6.2 [facility] Serum creatinine measurement (mass/volume)Ordered By: Anurag Irene on 11-25-2024 Creatinine [Mass/Vol] 0.86 mg/dL 0.70-1.20 [facility] Serum globulin measurementOr dered By: Anurag Irene on 11-25-2024 Globulin (S) [Mass/Vol] 2.2 g/dL 2.2-4.2 [facility] Serum glucose measurement (m ass/volume)Ordered By: Anurag Irene on 11-25-2024 Glucose [Mass/Vol] 179 mg/dL High 70-99 [facility] Serum or plasma alanine thomas otransferase (ALT) measurementOrdered By: Anurag Irene on 11-25-2024 ALT [Catalytic activity/Vol] 41 U/L <47 [facility] Serum or plasma albumin roosevelt urement (mass/volume)Ordered By: Anurag Irene on 11-25-2024 Albumin [Mass/Vol] 2.7 g/dL Low 3.5-5.0 [facility] Serum or plasma albumin/glob ulin mass ratioOrdered By: Anurag Irene on 11-25-2024 Albumin/Globulin [Mass ratio] 1.2 {ratio} 0.9-2.4 [facility] Serum or plasma alkaline kendrick sphatase measurementOrdered By: Anurag Irene on 11-25-2024 ALP [Catalytic activity/Vol] 168 U/L High 40-129 [facility] Serum or plasma calcium roosevelt urement (mass/volume)Ordered By: Anurag Irene on 11-25-2024 Calcium [Mass/Vol] 8.3 mg/dL 7.6-11.0 [facility] Serum or plasma urea nitroge n measurement (mass/volume)Ordered By: Anurag Irene on 11-25-2024 Urea nitrogen [Mass/Vol] 8 mg/dL 4-19 [facility] Sodium levelOrdered By: Marni Irene on 11-25-2024 Sodium [Moles/Vol] 135 mmol/L 133-145 [facility] Total proteinOrdered By: [place] Irene on 11-25-2024 Protein [Mass/Vol] 4.9 g/dL Low 5.9-8.4 [facility] White blood cell (WBC) count Ordered By: Anurag Irene on 11-25-2024 WBC (Bld) [#/Vol] 5.5 10*3/uL 4.4-11.0 [facility] Blood manual differential co mment interpretation (narrative result)Ordered By: Anurag Irene on 11-24-2024 Manual differential comment Macro Antonio (Bld) [Interp] SCANNED [facility] Platelet estimateOrdered By: Anurag Irene on 11-24-2024 Platelets LM Ql (Bld) MOD DEC ADEQ [facility] Prothrombin timeOrdered By: Anurag Irene on 11-24-2024 PT Coag (PPP) [Time] 22.6 s High 11.7-14.9 [facility] Bilirubin directOrdered By: Anurag Irene on 11-22-2024 Bilirubin.direct [Mass/Vol] 0.73 mg/dL High 0.00-0.30 [facility] ALP [Catalytic activity/Vol] Ordered By: Herberth Carlson on 11-21-2024 Serum or plasma alkaline phosphatase measurement 245 U/L High 40-129 [facility] ALT [Catalytic activity/Vol] Ordered By: Herberth Carlson on 11-21-2024 Serum or plasma alanine aminotransferase (ALT) measurement 61 U/L High <47 [facility] Absolute neutrophil countOrd ered By: Herberth Carlson on 11-21-2024 Absolute neutrophil count 6.5 X10^3/uL 2.0-7.7 [facility] Albumin [Mass/Vol]Ordered By : Herberth Carlson on 11-21-2024 Serum or plasma albumin measurement (mass/volume) 2.5 g/dL Low 3.5-5.0 [facility] Albumin/Globulin [Mass ratio ]Ordered By: Herberth Carlson on 11-21-2024 Serum or plasma albumin/globulin mass ratio 0.9 RATIO 0.9-2.4 [facility] Anion gap [Moles/Vol]Ordered By: Herberth Carlson on 11-21-2024 Anion gap in Serum or Plasma 11 5-15 [facility] BUN/creatinine ratioOrdered By: Herberth Carlson on 11-21-2024 BUN/creatinine ratio 19.1 RATIO 10-20 [facility] Bacteria LM.HPF (Urine sed) [#/Area]Ordered By: Herberth Carlson on 11-21-2024 Urine sediment bacteria count by microscopy (number/high power field) RARE /hpf None Seen [facility] Basophil percentageOrdered B y: Herberth Carlson on 11-21-2024 Basophil percentage 0.2 % 0-1 [facility] Bilirubin Test strip Ql (U)O rdered By: Herberth Carlson on 11-21-2024 Bilirubin Ql (U) Negative Negative [facility] Bilirubin, totalOrdered By: Herberth Carlson on 11-21-2024 Bilirubin, total 1.33 mg/dL High 0.00-1.30 [facility] Calcium [Mass/Vol]Ordered By : Herberth Carlson on 11-21-2024 Serum or plasma calcium measurement (mass/volume) 8.7 mg/dL 7.6-11.0 [facility] Carbon dioxide, total [Moles /volume] in Central venous bloodOrdered By: Herberth Carlson on 11-21-2024 Carbon dioxide, total [Moles/volume] in Central venous blood 17.5 mmol/L Low 21.0-32.0 [facility] Chloride assayOrdered By: Kaylyn Carlson on 11-21-2024 Chloride assay 103 mmol/L 98-108 [facility] Clarity (U)Ordered By: Ashish Carlson on 11-21-2024 Urine clarity Sl Cldy Clear [facility] Color (U)Ordered By: Herberth Carlson on 11-21-2024 Urine color determination Yellow Yellow [facility] Creatinine [Mass/Vol]Ordered By: Herberth Carlson on 11-21-2024 Serum creatinine measurement (mass/volume) 1.49 mg/dL High 0.70-1.20 [facility] Eosinophil percentageOrdered By: Herberth Carlson on 11-21-2024 Eosinophil percentage 7.2 % High 0-5 [facility] Erythrocyte distribution wid th (RBC) [Ratio]Ordered By: Herberth Carlson on 11-21-2024 Erythrocyte distribution width ratio 16.8 % High 11.6-14.6 [facility] Erythrocyte distribution width standard deviation 57.1 fl High 35.1-43.9 [facility] Estimation of creatinine [place] aranceOrdered By: Herberth Carlson on 11-21-2024 Estimation of creatinine clearance 64.65 ml/min 50-250 [facility] GFR/1.73 sq M.predicted niki g non-blacks MDRD (S/P/Bld) [Vol rate/Area]Ordered By: Herberth Carlson on 11-21-2024 Glomerular filtration rate (GFR) estimation/1.73 sq m using serum, plasma, or whole b 54 Low >60 [facility] Glucose [Mass/Vol]Ordered By : Herberth Carlson on 11-21-2024 Serum glucose measurement (mass/volume) 188 mg/dL High 70-99 [facility] Hematocrit Auto (Bld) [Volum e fraction]Ordered By: Herberth Carlson on 11-21-2024 Automated blood hematocrit (percentage) 24.6 % Low 40-54 [facility] Hemoglobin measurementOrdere d By: Herberth Carlson on 11-21-2024 Hemoglobin measurement 8.3 g/dL Low 13.0-16.5 [facility] Immature granulocytes/100 WB C Auto (Bld)Ordered By: Herberth Carlson on 11-21-2024 Automated immature granulocyte percentage 0.800 % 0.0-0.9 [facility] International normalized rat io (INR) calculationOrdered By: Herberth Carlson 11-21-2024 International normalized ratio (INR) calculation 2.6 [facility] Ketones Test strip Ql (U)Ord ered By: Herberth Carlson on 11-21-2024 Ketones Ql (U) Negative Negative [facility] Lactic acid measurementOrder ed By: Herberth Carlson on 11-21-2024 Lactic acid measurement 2.7 mmol/L High 0.0-2.0 [facility] Leukocyte esterase Test stri p Ql (U)Ordered By: Herberth Carlson on 11-21-2024 Urine leukocyte esterase detection by dipstick 500 /ul High Negative [facility] Lymphocytes Auto (Unsp spec) [#/Vol]Ordered By: Herberth Carlson on 11-21-2024 Absolute lymphocyte count 1.33 X10^3/uL 0.83-4.51 [facility] Lymphocytes/100 WBC Auto (Un sp spec)Ordered By: Herberth Carlson on 11-21-2024 Automated lymphocyte count as percentage of total leukocytes 13.9 % Low 19-41 [facility] MCV (RBC) [Entitic vol]Order ed By: Herberth Carlson on 11-21-2024 MCV (mean corpuscular volume) determination 93.2 fL 80-94 [facility] Mean corpuscular hemoglobin (MCH) determinationOrdered By: Herberth Carlson on 11-21-2024 Mean corpuscular hemoglobin (MCH) determination 31.4 pg 27.0-32.0 [facility] Mean corpuscular hemoglobin concentration (MCHC) determinationOrdered By: Herberth Carlson on 11-21-2024 Mean corpuscular hemoglobin concentration (MCHC) determination 33.7 g/dL 32-36 [facility] Mean platelet volume determi nationOrdered By: Herberth Carlson on 11-21-2024 Mean platelet volume determination 11.6 fl 6.2-12.0 [facility] Monocyte percentageOrdered B y: Herberth Carlson on 11-21-2024 Monocyte percentage 9.2 % 0-10 [facility] Mucus LM Ql (Urine sed)Order ed By: Herberth Carlson on 11-21-2024 Mucus Ql (Urine sed) 0 SEEN /hpf [facility] Neutrophil percentageOrdered By: Herebrth Carlson on 11-21-2024 Neutrophil percentage 68.7 % 47-70 [facility] Nitrite Test strip Ql (U)Ord ered By: Herberth Carlson on 11-21-2024 Nitrite Ql (U) Negative Negative [facility] No Panel InformationOrdered By: Herberth Carlson on 11-21-2024 112 U/L High <38 [facility] Nucleated red blood cell per centageOrdered By: Herberth Carlson on 11-21-2024 Nucleated red blood cell percentage 0 % 0-5 [facility] Platelet countOrdered By: Kaylyn Carlson on 11-21-2024 Platelet count 167 K/mm3 150-450 [facility] Potassium (Unsp spec) [Mass/ Vol]Ordered By: Herberth Carlson on 11-21-2024 Potassium measurement (mass/volume) 5.0 mmol/L 3.3-5.1 [facility] Protein Test strip Ql (U)Ord ered By: Herberth Carlson on 11-21-2024 Protein Ql (U) 500 mg/dl High Negative [facility] Urine protein assay by test strip, semi-quantitative 500 mg/dl High Negative [facility] Prothrombin timeOrdered By: Herberth Carlson on 11-21-2024 Prothrombin time 28.2 SECONDS High 11.7-14.9 [facility] RBC Auto (Bld) [#/Vol]Ordere d By: Herberth Carlson on 11-21-2024 Automated blood erythrocyte count 2.64 M/mm3 Low 4.6-6.2 [facility] Serum globulin measurementOr dered By: Herberth Carlson on 11-21-2024 Serum globulin measurement 2.7 g/dL 2.2-4.2 [facility] Sodium levelOrdered By: Norman Carlson on 11-21-2024 Sodium level 132 mmol/L Low 133-145 [facility] Specific gravity (U) [Rel de nsity]Ordered By: Herberth Carlson on 11-21-2024 Urine specific gravity measurement 1.015 1.002-1.030 [facility] Squamous epithelial cells de tection in urine sediment by light microscopyOrdered By: Herberth Carlson 11-21-2024 Epithelial cells.squamous LM Ql (Urine sed) 0 SEEN /hpf 0-5 [facility] Squamous epithelial cells detection in urine sediment by light microscopy 0 SEEN /hpf [facility] Total proteinOrdered By: Digna Carlson on 11-21-2024 Total protein 5.2 g/dL Low 5.9-8.4 [facility] Urea nitrogen [Mass/Vol]Orde red By: Herberth Carlson on 11-21-2024 Serum or plasma urea nitrogen measurement (mass/volume) 28 mg/dL High 4-19 [facility] Urine blood detectionOrdered By: Herberth Carlson on 11-21-2024 Urine blood detection 250 /ul High Negative [facility] Urine clarityOrdered By: Digna Carlson on 11-21-2024 Clarity (U) Sl Cldy Clear [facility] Urine color determinationOrd ered By: Herberth Carlson on 11-21-2024 Color (U) Yellow Yellow [facility] Urine cultureOrdered By: Digna Carlson on 11-21-2024 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 [facility] Bacteria identified Cx Nom (U) GPC Poss Enterococcus sp Abnormal [facility] Bacteria identified Cx Nom (U) Positive Abnormal [facility] Urine glucose detectionOrder ed By: Herberth Carlson on 11-21-2024 Glucose Ql (U) Normal mg/dl Normal [facility] Urine glucose detection Normal mg/dl Normal [facility] Urine leukocyte esterase det ection by dipstickOrdered By: Herberth Carlson on 11-21-2024 Leukocyte esterase Test strip Ql (U) 500 /ul High Negative [facility] Urine pHOrdered By: Herberth Carlson on 11-21-2024 pH (U) 6.0 [pH] 5.0 - 8.0 [facility] Urine sediment bacteria coun t by microscopy (number/high power field)Ordered By: Herberth Carlson on 11-21-2024 Bacteria LM.HPF (Urine sed) [#/Area] RARE /hpf None Seen [facility] Urine specific gravity measu rementOrdered By: Herberth Carlson on 11-21-2024 Specific gravity (U) [Rel density] 1.015 1.002-1.030 [facility] Urine total bilirubin detect ion by test stripOrdered By: Herberth Carlson on 11-21-2024 Urine total bilirubin detection by test strip Negative Negative [facility] Urine urobilinogen measureme ntOrdered By: Herberth Carlson on 11-21-2024 Urobilinogen Ql (U) Normal mg/dl Normal [facility] Venous blood ammonia measure mentOrdered By: Herberth Carlson on 11-21-2024 Ammonia (P) [Moles/Vol] 17.9 umol/L 16- [facility] Venous blood ammonia measurement 17.9 umol/L [facility] White blood cell (WBC) count Ordered By: Herberth Carlson on 11-21-2024 White blood cell (WBC) count 9.5 K/mm3 4.4-11.0 [facility] White blood cell countOrdere d By: Herberth Carlson on 11-21-2024 White blood cell count >100 SEEN /hpf 0-5 [facility] White blood cell count >100 SEEN /hpf 0-5 [facility] pH (U)Ordered By: Herberth henao on 11-21-2024 Urine pH 6.0 5.0 - 8.0 [facility] Bacteria Ur Culton Bacteria identified Cx Nom (U) CULTURE, URINE: Mixed microbiota, including predominantly: ORGANISM ID: 1 >=100,000 CFU/ml Mary glabrata No susceptibility testing done. Normal [facility] Comment on above: Performed By: #### 6 30-4 ####[facility] LABCLIA [id number] [address] [address] [place] Bacteria identified Cx Nom (U) Normal [facility] Comment on above: Performed By: #### 2 4356-8, 630-4 ####[facility] LABCLIA [id number] [address] [address] [place] Basic metabolic 2000 panelon 11-18-2024 Anion gap [Moles/Vol] 8 mmol/L Normal 8-15 [facility] Comment on above: Order Comment: Speci men Type: BLOOD SPECIMENOrdering Facility: [facility] Address: [address] [place] [address] Performed By: #### 2 4321-2, 09916-5, 2777-1 ####[facility] LABCLIA [id number] [address] [address] [place] Calcium [Mass/Vol] 8.3 mg/dL Low 8.5-10.2 [facility] Comment on above: Order Comment: Speci men Type: BLOOD SPECIMENOrdering Facility: [facility] Address: [address] [place] [address] Performed By: #### 2 4321-2, 93530-0, 2777-1 ####[facility] LABCLIA [id number] [facility] [address] [address] [place] Chloride [Moles/Vol] 102 mmol/L Normal 98-107 [facility] Comment on above: Order Comment: Speci men Type: BLOOD SPECIMENOrdering Facility: [facility] Address: [address] [place] [address] Performed By: #### 2 4321-2, 90059-4, 2777-1 ####[facility] LABCLIA [id number] [place] [id number] [place] CO2 [Moles/Vol] 19 mmol/L Low 22-30 [facility] Comment on above: Order Comment: Speci men Type: BLOOD SPECIMENOrdering Facility: [facility] Address: [address] [place] [address] Performed By: #### 2 4321-2, 74065-3, 2777-1 ####[facility] LABCLIA [id number] [place] [address] [place] Creatinine [Mass/Vol] 0.95 mg/dL Normal 0.73-1.22 [facility] Comment on above: Order Comment: Speci men Type: BLOOD SPECIMENOrdering Facility: [facility] Address: [address] [place] [address] Performed By: #### 2 4321-2, 26166-5, 2777-1 ####[facility] LABCLIA [id number] [place] [address] [place] [facility] Creatinine and Glomerular filtration rate.predicted panel (S/P/Bld) 93 mL/min/1.73m??? Normal >=60 [facility] Comment on above: Order Comment: Speci men Type: BLOOD SPECIMENOrdering Facility: [facility] Address: [address] [place] [address] Result Comment: Patric mated Glomerular Filtration Rate [...] actual GFR. Performed By: #### 2 1-2, 98582-5, 2776-08 ####[facility] LABCLIA [id number] [facility] [address] [address] [place] Glucose [Mass/Vol] 248 mg/dL High 74-99 [facility] Comment on above: Order Comment: Spechelder men Type: BLOOD SPECIMENOrdering Facility: [facility] Address: [address] [place] [address] Result Comment: The [place] Diabetes [employer] (ADA) provides guidance for cutoff [...] Standards of Medical Care in Diabetes 2016, [place] [employer]. Diabetes Care. 2016.39(Suppl 1). Performed By: #### 2 1-2, 62823-4, 2776-08 ####[facility] LABCLIA [id number] [facility] [address] [address] [place] Potassium [Moles/Vol] 4.4 mmol/L Normal 3.7-5.1 [facility] Comment on above: Order Comment: Ezekiel men Type: BLOOD SPECIMENOrdering Facility: [facility] Address: [address] [place] [address] Performed By: #### 2 4321-2, 63561-7, 2776-08 ####[facility] LABCLIA [id number] [facility] [address] [address] [place] Sodium [Moles/Vol] 129 mmol/L Low 136-144 [facility] Comment on above: Order Comment: Speci men Type: BLOOD SPECIMENOrdering Facility: [facility] Address: [address] [place] [address] Performed By: #### 2 4321-2, 91471-3, 2777- ####[facility] LABCLIA [id number] [address] [place] [address] [place] Urea nitrogen [Mass/Vol] 16 mg/dL Normal 9-24 [facility] Comment on above: Order Comment: Speci men Type: BLOOD SPECIMENOrdering Facility: [facility] Address: [address] [place] [address] Performed By: #### 2 4321-2, 17232-1, 27702-01 ####[facility] LABCLIA [id number] [place] [id number] [place] CASE MANAGEMon 11-18-2024 CASE MANAGEM Normal [facility] CBC W Auto Differential pane l (Bld)on 11-18-2024 Basophils (Bld) [#/Vol] 10*3/uL Normal <0.11 [facility] Comment on above: Order Comment: Speci men Type: BLOOD SPECIMENOrdering Facility: [facility] Address: [address] [place] [address] Performed By: #### 5 7021-8 ####[facility] LABCLIA [id number] [place] [id number] [place] Basophils/100 WBC (Bld) 0.0 % Normal [facility] Comment on above: Order Comment: Speci men Type: BLOOD SPECIMENOrdering Facility: [facility] Address: [address] [place] [address] Performed By: #### 5 7021-8 ####[facility] LABCLIA [id number] [facility] [address] [address] [place] Differential cell count method Nom (Bld) Auto Normal [facility] Comment on above: Order Comment: Speci men Type: BLOOD SPECIMENOrdering Facility: [facility] Address: [address] [place] [address] Performed By: #### 5 7021-8 ####[facility] LABCLIA [id number] [place] [address] [place] Eosinophils (Bld) [#/Vol] 10*3/uL Normal <0.46 [facility] Comment on above: Order Comment: Speci men Type: BLOOD SPECIMENOrdering Facility: [facility] Address: [address] [place] [address] Performed By: #### 5 7021-8 ####[facility] LABCLIA [id number] [place] [address] [place] Eosinophils/100 WBC (Bld) 0.1 % Normal [facility] Comment on above: Order Comment: Speci men Type: BLOOD SPECIMENOrdering Facility: [facility] Address: [address] [place] [address] Performed By: #### 5 7021-8 ####[facility] LABCLIA [id number] [place] [address] [place] Erythrocyte distribution width (RBC) [Ratio] 16.7 % High 11.5-15.0 [facility] Comment on above: Order Comment: Speci men Type: BLOOD SPECIMENOrdering Facility: [facility] Address: [address] [place] [address] Performed By: #### 5 7021-8 ####[facility] LABCLIA [id number] [facility] [place] [address] [place] Hematocrit (Bld) [Volume fraction] 21.5 % Low 39.0-51.0 [facility] Comment on above: Order Comment: Speci men Type: BLOOD SPECIMENOrdering Facility: [facility] Address: [address] [place] [address] Performed By: #### 5 7021-8 ####[facility] LABCLIA [id number] [place] [address] [place] Hemoglobin (Bld) [Mass/Vol] 7.2 g/dL Low 13.0-17.0 [facility] Comment on above: Order Comment: Speci men Type: BLOOD SPECIMENOrdering Facility: [facility] Address: [address] [place] [address] Performed By: #### 5 7021-8 ####[facility] LABCLIA [id number] [place] [address] [place] Immature granulocytes (Bld) [#/Vol] 0.06 10*3/uL Normal <0.10 [facility] Comment on above: Order Comment: Speci men Type: BLOOD SPECIMENOrdering Facility: [facility] Address: [address] [place] [address] Performed By: #### 5 7021-8 ####[facility] LABCLIA [id number] [place] [address] [place] Immature granulocytes/100 WBC (Bld) 0.7 % Normal [facility] Comment on above: Order Comment: Speci men Type: BLOOD SPECIMENOrdering Facility: [facility] Address: [address] [place] [address] Performed By: #### 5 7021-8 ####[facility] LABCLIA [id number] [place] [address] [place] Lymphocytes (Bld) [#/Vol] 0.61 10*3/uL Low 1.00-4.00 [facility] Comment on above: Order Comment: Speci men Type: BLOOD SPECIMENOrdering Facility: [facility] Address: [address] [place] [address] Performed By: #### 5 7021-8 ####[facility] LABCLIA [id number] [place] [address] [place] Lymphocytes/100 WBC (Bld) 7.3 % Normal [facility] Comment on above: Order Comment: Speci men Type: BLOOD SPECIMENOrdering Facility: [facility] Address: [address] [place] [address] Performed By: #### 5 7021-8 ####[facility] [id number] [place] [address] [place] MCH (RBC) [Entitic mass] 30.9 pg Normal 26.0-34.0 [facility] Comment on above: Order Comment: Speci men Type: BLOOD SPECIMENOrdering Facility: [facility] Address: [address] [place] [address] Performed By: #### 5 7021-8 ####[facility] [id number] [place] [address] [place] MCHC (RBC) [Mass/Vol] 33.5 g/dL Normal 30.5-36.0 [facility] Comment on above: Order Comment: Speci men Type: BLOOD SPECIMENOrdering Facility: [facility] Address: [address] [place] [address] Performed By: #### 5 7021-8 ####[facility] [id number] [place] [address] [place] MCV (RBC) [Entitic vol] 92.3 fL Normal 80.0-100.0 [facility] Comment on above: Order Comment: Speci men Type: BLOOD SPECIMENOrdering Facility: [facility] Address: [address] [place] [address] Performed By: #### 5 7021-8 ####[facility] [id number] [place] [address] [place] Monocytes (Bld) [#/Vol] 0.72 10*3/uL Normal <0.87 [facility] Comment on above: Order Comment: Speci men Type: BLOOD SPECIMENOrdering Facility: [facility] Address: [address] [place] [address] Performed By: #### 5 7021-8 ####[facility] LABCLIA [id number] [address] [address] [place] Monocytes/100 WBC (Bld) 8.7 % Normal [facility] Comment on above: Order Comment: Speci men Type: BLOOD SPECIMENOrdering Facility: [facility] Address: [address] [place] [address] Performed By: #### 5 7021-8 ####[facility] LABCLIA [id number] [place] [address] [place] Neutrophils (Bld) [#/Vol] 6.92 10*3/uL Normal 1.45-7.50 [facility] Comment on above: Order Comment: Speci men Type: BLOOD SPECIMENOrdering Facility: [facility] Address: [address] [place] [address] Performed By: #### 5 7021-8 ####[facility] LABCLIA [id number] [place] [address] [place] Neutrophils/100 WBC (Bld) 83.2 % Normal [facility] Comment on above: Order Comment: Speci men Type: BLOOD SPECIMENOrdering Facility: [facility] Address: [address] [place] [address] Performed By: #### 5 7021-8 ####[facility] LABCLIA [id number] [place] [address] [place] Nucleated RBC (Bld) [#/Vol] 10*3/uL Normal <0.01 [facility] Comment on above: Order Comment: Speci men Type: BLOOD SPECIMENOrdering Facility: [facility] Address: [address] [place] [address] Performed By: #### 5 7021-8 ####[facility] LABCLIA [id number] [place] [id number] [place] Nucleated RBC/100 WBC (Bld) [Ratio] 0.0 /100 WBC Normal [facility] Comment on above: Order Comment: Speci men Type: BLOOD SPECIMENOrdering Facility: [facility] Address: [address] [place] [address] Performed By: #### 5 7021-8 ####[facility] LABIA [id number] [place] [address] [place] Platelet mean volume (Bld) [Entitic vol] 12.1 fL Normal 9.0-12.7 [facility] Comment on above: Order Comment: Speci men Type: BLOOD SPECIMENOrdering Facility: [facility] Address: [address] [place] [address] Performed By: #### 5 7021-8 ####[facility] [id number] [place] [address] [place] Platelets (Bld) [#/Vol] 76 10*3/uL Low 150-400 [facility] Comment on above: Order Comment: Speci men Type: BLOOD SPECIMENOrdering Facility: [facility] Address: [address] [place] [address] Result Comment: No c lot detected. Performed By: #### 5 7021-8 ####[facility] [id number] [place] [address] [place] RBC (Bld) [#/Vol] 2.33 10*6/uL Low 4.20-6.00 [facility] Comment on above: Order Comment: Speci men Type: BLOOD SPECIMENOrdering Facility: [facility] Address: [address] [place] [address] Performed By: #### 5 7021-8 ####[facility] LABIA [id number] [place] [address] [place] WBC (Bld) [#/Vol] 8.32 10*3/uL Normal 3.70-11.00 [facility] Comment on above: Order Comment: Speci men Type: BLOOD SPECIMENOrdering Facility: [facility] Address: [address] [place] [address] Performed By: #### 5 7021-8 ####[facility] LABCLIA [id number] [place] [address] [place] CNCOon 11-18-2024 CNCO Letter Text Normal [facility] CNDSon 11-18-2024 CNDS Normal [facility] CNPNon 11-18-2024 CNPN Normal [facility] Fibrinogen PPP-mCncon 2024 Fibrinogen Coag (PPP) [Mass/Vol] 104 mg/dL Low 200-400 [facility] Comment on above: Order Comment: Speci men Type: BLOOD SPECIMENOrdering Facility: [facility] Address: [address] [place] [address] Performed By: #### 3 255-7, 68533-9 ####[facility] LABCLIA [id number] [place] [address] [place] Hepatic function 2000 panelo n 11-18-2024 Albumin [Mass/Vol] 2.6 g/dL Low 3.9-4.9 [facility] Comment on above: Order Comment: Speci men Type: BLOOD SPECIMENOrdering Facility: [facility] Address: [address] [place] [address] Performed By: #### 2 4321-2, 77495-4, 2777-1 ####[facility] LABCLIA [id number] [address], [place] [address] [place] ALP [Catalytic activity/Vol] 245 U/L High 38-113 [facility] Comment on above: Order Comment: Speci men Type: BLOOD SPECIMENOrdering Facility: [facility] Address: [address] [place] [address] Performed By: #### 2 4321-2, 89509-5, 2777-1 ####[facility] LABCLIA [id number] [facility] [address], [place] [address] [place] ALT [Catalytic activity/Vol] 31 U/L Normal 10-54 [facility] Comment on above: Order Comment: Speci men Type: BLOOD SPECIMENOrdering Facility: [facility] Address: [address] [place] [address] Performed By: #### 2 4321-2, 00384-1, 2776-08 ####[facility] LABCLIA [id number] [facility] [place] [address] [place] AST [Catalytic activity/Vol] 52 U/L High 14-40 [facility] Comment on above: Order Comment: Speci men Type: BLOOD SPECIMENOrdering Facility: [facility] Address: [address] [place] [address] Performed By: #### 2 4321-2, 28940-2, 2776-08 ####[facility] LABCLIA [id number] [facility] [place] [address] [place] Bilirubin [Mass/Vol] 1.2 mg/dL Normal 0.2-1.3 [facility] Comment on above: Order Comment: Speci men Type: BLOOD SPECIMENOrdering Facility: [facility] Address: [address] [place] [address] Performed By: #### 2 4321-2, 83955-6, 2776-08 ####[facility] LABCLIA [id number] [facility] [place] [address] [place] Bilirubin.conjugated [Mass/Vol] 0.7 mg/dL High <0.3 [facility] Comment on above: Order Comment: Speci men Type: BLOOD SPECIMENOrdering Facility: [facility] Address: [address] [place], [place] [address] Performed By: #### 2 4321-2, 13121-2, 2776-08 ####[facility] LABCLIA [id number] [facility] [address] [address] [place] Protein [Mass/Vol] 5.0 g/dL Low 6.3-8.0 [facility] Comment on above: Order Comment: Speci men Type: BLOOD SPECIMENOrdering Facility: [facility] Address: [address] [place] [address] Performed By: #### 2 4321-2, 26361-9, 2777-1 ####[facility] LABCLIA [id number] [place] [address] [place] NURSING PROGon 11-18-2024 NURSING PROG Normal [facility] PT panel Coag (PPP)on 2024 INR Coag (PPP) [Relative time] 2.0 {INR} High 0.9-1.3 [facility] Comment on above: Order Comment: Ezekiel ramirez Type: BLOOD SPECIMENOrdering Facility: [facility] Address: [address] [place] [address] Result Comment: Sarah min K Antagonist (VKA) Therapeutic Range: INR 2 to 3 (Target INR of 2.5)Note: For patients treated with VKA drugs, such as warfarin, the [place] [employer] 2012 Guideline recommends [...] al. Chest 2012, 141:7S-47SHector RA, et al. [facility] 2017, 70: 252-289 Performed By: #### 3 255-7, 54797-5 ####[facility] LABIA [id number] [place] [id number] [place] PT Coag (PPP) [Time] 20.9 s High 9.7-13.0 [facility] Comment on above: Order Comment: Ezekiel ramirez Type: BLOOD SPECIMENOrdering Facility: [facility] Address: [address] [place] [address] Performed By: #### 3 255-7, 25977-3 ####[facility] LABCLIA [id number] [place] [address] [place] Phosphate SerPl-mCncon 11-18 Phosphate [Mass/Vol] 2.4 mg/dL Low 2.7-4.8 [facility] Comment on above: Order Comment: Speci men Type: BLOOD SPECIMENOrdering Facility: [facility] Address: [address] [place] [address] Performed By: #### 2 4321-2, 32782-8, 2777-1 ####[facility] LABCLIA [id number] [place] [address] [place] TYPE + SCREENon 11-18-2024 ABO O Normal [facility] Comment on above: Order Comment: Speci men Type: BLOOD SPECIMENOrdering Facility: [facility] Address: [address] [place] [address] Performed By: #### T SCR ####[facility] BLOOD BANKCLIA [id number] [place] [address] [place] Rh Nom (Bld) Positive Normal [facility] Comment on above: Order Comment: Speci men Type: BLOOD SPECIMENOrdering Facility: [facility] Address: [address] [place] [address] Performed By: #### T SCR ####[facility] B[facility] BANKCLIA [id number] [place] [address] [place] TYPE AND SCREEN EXPIRATION 11/21/2024 23:59 Normal [facility] Comment on above: Order Comment: Speci men Type: BLOOD SPECIMENOrdering Facility: [facility] Address: [address] [place] [address] Performed By: #### T SCR ####[facility] BLOOD BANKCLIA [id number] [place] [address] [place] Urinalysis complete panel (U )on 11-18-2024 BACTERIA UL 1671.0 uL High Negative [facility] Comment on above: Order Comment: Speci men Type: URINE SPECIMENOrdering Facility: [facility] Address: [address] [place] [address] Performed By: #### 2 4356-8, 630-4 ####[facility] LABCLIA [id number] [place] [address] [place] Bilirubin Ql (U) 2+ Abnormal Negative [facility] Comment on above: Order Comment: Speci men Type: URINE SPECIMENOrdering Facility: [facility] Address: [address] [place] [address] Result Comment: Sugg est correlation with clinical findings and serum bilirubin if clinically indicated. Performed By: #### 2 4356-8, 630-4 ####[facility] LABCLIA [id number] [place] [address] [place] CALCIUM OXALATE CRYSTALS (UA) Few Abnormal None Seen [facility] Comment on above: Order Comment: Speci men Type: URINE SPECIMENOrdering Facility: [facility] Address: [address] [place] [address] Performed By: #### 2 4356-8, 630-4 ####[facility] LABCLIA [id number] [place] [id number] [place] Clarity (Unsp spec) Turbid Abnormal Clear [facility] Comment on above: Order Comment: Speci men Type: URINE SPECIMENOrdering Facility: [facility] Address: [address] [place] [address] Performed By: #### 2 4356-8, 630-4 ####[facility] LABCLIA [id number] [address], [facility] [place] Color (U) Red Abnormal Yellow [facility] Comment on above: Order Comment: Speci men Type: URINE SPECIMENOrdering Facility: [facility] Address: [address] [place] [address] Performed By: #### 2 4356-8, 630-4 ####[facility] LABCLIA [id number] [place] [address] [place] Epithelial cells LM.HPF (Urine sed) [#/Area] None Seen Normal [facility] Comment on above: Order Comment: Speci men Type: URINE SPECIMENOrdering Facility: [facility] Address: [address] [place] [address] Performed By: #### 2 4356-8, 630-4 ####[facility] LABCLIA [id number] [place] [address] [place] Glucose Test strip (U) [Mass/Vol] Negative Normal Negative [facility] Comment on above: Order Comment: Speci men Type: URINE SPECIMENOrdering Facility: [facility] Address: [address] [place] [address] Performed By: #### 2 4356-8, 630-4 ####[facility] LABCLIA [id number] [place] [address] [place] Hemoglobin Ql (U) 2+ Abnormal Negative [facility] Comment on above: Order Comment: Speci men Type: URINE SPECIMENOrdering Facility: [facility] Address: [address] [place] [place] [address] Performed By: #### 2 4356-8, 630-4 ####[facility] LABCLIA [id number] [place] [id number] [place] Hyaline casts (Urine sed) [#/Area] 0 /[LPF] Normal 0 /LPF [facility] Comment on above: Order Comment: Speci men Type: URINE SPECIMENOrdering Facility: [facility] Address: [address] [place] [address] Performed By: #### 2 4356-8, 630-4 ####[facility] LABCLIA [id number] [facility] [address] [place] [address] [place] Ketones Ql (U) Negative Normal Negative [facility] Comment on above: Order Comment: Speci men Type: URINE SPECIMENOrdering Facility: [facility] Address: [address] [place] [address] Performed By: #### 2 4356-8, 630-4 ####[facility] LABCLIA [id number] [address], [place] [address] [place] Leukocyte esterase Test strip Ql (U) 3+ Abnormal Negative [facility] Comment on above: Order Comment: Speci men Type: URINE SPECIMENOrdering Facility: [facility] Address: [address] [place] [address] Performed By: #### 2 4356-8, 630-4 ####[facility] LABCLIA [id number] [place] [address] [place] Nitrite Ql (U) Negative Normal Negative [facility] Comment on above: Order Comment: Speci men Type: URINE SPECIMENOrdering Facility: [facility] Address: [address] [place] [address] Result Comment: Resu lt rechecked. Performed By: #### 2 4356-8, 630-4 ####[facility] LABCLIA [id number] [address], [place] [address] [place] pH (U) 5.0 [pH] Normal <8.5 [facility] Comment on above: Order Comment: Speci men Type: URINE SPECIMENOrdering Facility: [facility] Address: [address] [place] [address] Performed By: #### 2 4356-8, 630-4 ####[facility] LABCLIA [id number] [address], [facility]95 [place] Protein (U) [Mass/Vol] 2+ Abnormal Negative [facility] Comment on above: Order Comment: Speci men Type: URINE SPECIMENOrdering Facility: [facility] Address: [address] [place] [address] Performed By: #### 2 4356-8, 630-4 ####[facility] [id number] [place] [address] [place] RBC LM.HPF (Urine sed) [#/Area] /[HPF] Abnormal 0-2 /HPF [facility] Comment on above: Order Comment: Speci men Type: URINE SPECIMENOrdering Facility: [facility] Address: [address] [place] [address] Performed By: #### 2 4356-8, 630-4 ####[facility] [id number] [place] [address] [place] Specific gravity (U) [Rel density] 1.021 Normal 1.005-1.030 [facility] Comment on above: Order Comment: Speci men Type: URINE SPECIMENOrdering Facility: [facility] Address: [address] [place] [address] Performed By: #### 2 4356-8, 630-4 ####[facility] [id number] [place] [address] [place] Urobilinogen Ql (U) 0.2 EU/dL Normal 0.2-1.0 EU/dL [facility] Comment on above: Order Comment: Speci men Type: URINE SPECIMENOrdering Facility: [facility] Address: [address] [place] [address] Performed By: #### 2 4356-8, 630-4 ####[facility] [id number] [place] [address] [place] WBC LM.HPF (Urine sed) [#/Area] /[HPF] Abnormal 0-5 /HPF [facility] Comment on above: Order Comment: Speci men Type: URINE SPECIMENOrdering Facility: [facility] Address: [address] [place] [address] Performed By: #### 2 4356-8, 630-4 ####[facility] LABCLIA [id number] [address] [address] [place] Yeast.budding LM.HPF (Urine sed) [#/Area] Present Abnormal None Seen [facility] Comment on above: Order Comment: Speci men Type: URINE SPECIMENOrdering Facility: [facility] Address: [address] [place] [address] Performed By: #### 2 4356-8, 630-4 ####[facility] LABIA [id number] [address] [address] [place] Basic metabolic 2000 panelon 11-17-2024 Anion gap [Moles/Vol] 10 mmol/L Normal 8-15 [facility] Comment on above: Order Comment: Speci men Type: BLOOD SPECIMENOrdering Facility: [facility] Address: [address] [place] [address] Performed By: #### 2 4321-2, 10490-6, 2777-1 ####[facility] LABIA [id number] [place] [address] [place] Calcium [Mass/Vol] 8.9 mg/dL Normal 8.5-10.2 [facility] Comment on above: Order Comment: Speci men Type: BLOOD SPECIMENOrdering Facility: [facility] Address: [address] [place] [address] Performed By: #### 2 4321-2, 66334-5, 2777-1 ####[facility] LABIA [id number] [address] [address] [place] Chloride [Moles/Vol] 105 mmol/L Normal 98-107 [facility] Comment on above: Order Comment: Speci men Type: BLOOD SPECIMENOrdering Facility: [facility] Address: [address] [place] [address] Performed By: #### 2 4321-2, 38002-0, 2777-1 ####[facility] LABIA [id number] [address] [address] [place] CO2 [Moles/Vol] 17 mmol/L Low 22-30 [facility] Comment on above: Order Comment: Speci men Type: BLOOD SPECIMENOrdering Facility: [facility] Address: [address] [place] [address] Performed By: #### 2 4321-2, 58644-9, 2776- ####[facility] LABIA [id number] [address] [address] [place] Creatinine [Mass/Vol] 0.77 mg/dL Normal 0.73-1.22 [facility] Comment on above: Order Comment: Speci men Type: BLOOD SPECIMENOrdering Facility: [facility] Address: [address] [place] [address] Performed By: #### 2 432-2, 94283-8, 2776-08 ####[facility] [id number] [place] [id number] [place] Creatinine and Glomerular filtration rate.predicted panel (S/P/Bld) 104 mL/min/1.73m??? Normal >=60 [facility] Comment on above: Order Comment: Speci men Type: BLOOD SPECIMENOrdering Facility: [facility] Address: [address] [place] [address] Result Comment: Patric mated Glomerular Filtration Rate [...] actual GFR. Performed By: #### 2 4321-2, 46886-2, 2776-08 ####[facility] LABIA [id number] [address] [address] [place] Glucose [Mass/Vol] 291 mg/dL High 74-99 [facility] Comment on above: Order Comment: Speci men Type: BLOOD SPECIMENOrdering Facility: [facility] Address: [address] [place] [address] Result Comment: The [place] [employer] (ADA) provides guidance for cutoff [...] Standards of Medical Care in Diabetes 2016, [place] [employer]. Diabetes Care. 2016.39(Suppl 1). Performed By: #### 2 4321-2, 54882-4, 2777- ####[facility] LABCLIA [id number] [place] [address] [place] Potassium [Moles/Vol] 4.5 mmol/L Normal 3.7-5.1 [facility] Comment on above: Order Comment: Speci men Type: BLOOD SPECIMENOrdering Facility: [facility] Address: [address] [place] [address] Performed By: #### 2 4321-2, 23903-8, 2777- ####[facility] LABCLIA [id number] [place] [id number] [place] Sodium [Moles/Vol] 132 mmol/L Low 136-144 [facility] Comment on above: Order Comment: Speci men Type: BLOOD SPECIMENOrdering Facility: [facility] Address: [address] [place] [address] Performed By: #### 2 4321-2, 43362-8, 2777-1 ####[facility] LABCLIA [id number] [place] [id number] [place] Urea nitrogen [Mass/Vol] 9 mg/dL Normal 9-24 [facility] Comment on above: Order Comment: Speci men Type: BLOOD SPECIMENOrdering Facility: [facility] Address: [address] [place] [address] Performed By: #### 2 4321-2, 36163-1, 2777-1 ####[facility] LABCLIA [id number] [place] [address] [place] CASE MANAGEMon 11-17-2024 CASE MANAGEM Normal [facility] CBC W Auto Differential pane l (Bld)on 11-17-2024 Basophils (Bld) [#/Vol] 10*3/uL Normal <0.11 [facility] Comment on above: Order Comment: Speci men Type: BLOOD SPECIMENOrdering Facility: [facility] Address: [address] [place] [address] Performed By: #### 5 7021-8 ####[facility] LABCLIA [id number] [place] [address] [place] Basophils/100 WBC (Bld) 0.0 % Normal [facility] Comment on above: Order Comment: Speci men Type: BLOOD SPECIMENOrdering Facility: [facility] Address: [address] [place] [address] Performed By: #### 5 7021-8 ####[facility] LABCLIA [id number] [address] [place] Differential cell count method Nom (Bld) Auto Normal [facility] Comment on above: Order Comment: Speci men Type: BLOOD SPECIMENOrdering Facility: [facility] Address: [address] [place] [address] Performed By: #### 5 7021-8 ####[facility] LABCLIA [id number] [place] [address] [place] Eosinophils (Bld) [#/Vol] 10*3/uL Normal <0.46 [facility] Comment on above: Order Comment: Speci men Type: BLOOD SPECIMENOrdering Facility: [facility] Address: [address] [place] [address] Performed By: #### 5 7021-8 ####[facility] LABIA [id number] [place] [address] [place] Eosinophils/100 WBC (Bld) 0.0 % Normal [facility] Comment on above: Order Comment: Speci men Type: BLOOD SPECIMENOrdering Facility: [facility] Address: [address] [place] [address] Performed By: #### 5 7021-8 ####[facility] LABIA [id number] [place] [address] [place] Erythrocyte distribution width (RBC) [Ratio] 16.9 % High 11.5-15.0 [facility] Comment on above: Order Comment: Speci men Type: BLOOD SPECIMENOrdering Facility: [facility] Address: [address] [place] [address] Performed By: #### 5 7021-8 ####[facility] LABIA [id number] [place] [address] [place] Hematocrit (Bld) [Volume fraction] 22.7 % Low 39.0-51.0 [facility] Comment on above: Order Comment: Speci men Type: BLOOD SPECIMENOrdering Facility: [facility] Address: [address] [place] [address] Performed By: #### 5 7021-8 ####[facility] LABIA [id number] [place] [id number] [place] Hemoglobin (Bld) [Mass/Vol] 7.7 g/dL Low 13.0-17.0 [facility] Comment on above: Order Comment: Speci men Type: BLOOD SPECIMENOrdering Facility: [facility] Address: [address] [place] [address] Performed By: #### 5 7021-8 ####[facility] LABCLIA [id number] [place] [address] [place] Immature granulocytes (Bld) [#/Vol] 0.03 10*3/uL Normal <0.10 [facility] Comment on above: Order Comment: Speci men Type: BLOOD SPECIMENOrdering Facility: [facility] Address: [address] [place] [address] Performed By: #### 5 7021-8 ####[facility] LABCLIA [id number] [place] [address] [place] Immature granulocytes/100 WBC (Bld) 0.9 % Normal [facility] Comment on above: Order Comment: Speci men Type: BLOOD SPECIMENOrdering Facility: [facility] Address: [address] [place] [address] Performed By: #### 5 7021-8 ####[facility] LABCLIA [id number] [place] [address] [place] Lymphocytes (Bld) [#/Vol] 0.28 10*3/uL Low 1.00-4.00 [facility] Comment on above: Order Comment: Speci men Type: BLOOD SPECIMENOrdering Facility: [facility] Address: [address] [place] [address] Performed By: #### 5 7021-8 ####[facility] LABCLIA [id number] [address] [place] Lymphocytes/100 WBC (Bld) 8.3 % Normal [facility] Comment on above: Order Comment: Speci men Type: BLOOD SPECIMENOrdering Facility: [facility] Address: [address] [place] [address] Performed By: #### 5 7021-8 ####[facility] LABCLIA [id number] [place] [address] [place] MCH (RBC) [Entitic mass] 31.7 pg Normal 26.0-34.0 [facility] Comment on above: Order Comment: Speci men Type: BLOOD SPECIMENOrdering Facility: [facility] Address: [address] [place] [address] Performed By: #### 5 7021-8 ####[facility] LABCLIA [id number] [place] [address] [place] MCHC (RBC) [Mass/Vol] 33.9 g/dL Normal 30.5-36.0 [facility] Comment on above: Order Comment: Speci men Type: BLOOD SPECIMENOrdering Facility: [facility] Address: [address] [place] [address] Performed By: #### 5 7021-8 ####[facility] LABIA [id number] [place] [address] [place] MCV (RBC) [Entitic vol] 93.4 fL Normal 80.0-100.0 [facility] Comment on above: Order Comment: Speci men Type: BLOOD SPECIMENOrdering Facility: [facility] Address: [address] [place] [address] Performed By: #### 5 7021-8 ####[facility] LABIA [id number] [place] [address] [place] Monocytes (Bld) [#/Vol] 0.17 10*3/uL Normal <0.87 [facility] Comment on above: Order Comment: Speci men Type: BLOOD SPECIMENOrdering Facility: [facility] Address: [address] [place] [address] Performed By: #### 5 7021-8 ####[facility] LABIA [id number] [place] [address] [place] Monocytes/100 WBC (Bld) 5.0 % Normal [facility] Comment on above: Order Comment: Speci men Type: BLOOD SPECIMENOrdering Facility: [facility] Address: [address] [place] [address] Performed By: #### 5 7021-8 ####[facility] LABCLIA [id number] [place] [address] [place] Neutrophils (Bld) [#/Vol] 2.89 10*3/uL Normal 1.45-7.50 [facility] Comment on above: Order Comment: Speci men Type: BLOOD SPECIMENOrdering Facility: [facility] Address: [address] [place] [address] Performed By: #### 5 7021-8 ####[facility] LABCLIA [id number] [place] [address] [place] Neutrophils/100 WBC (Bld) 85.8 % Normal [facility] Comment on above: Order Comment: Speci men Type: BLOOD SPECIMENOrdering Facility: [facility] Address: [address] [place] [address] Performed By: #### 5 7021-8 ####[facility] LABCLIA [id number] [place] [address] [place] Nucleated RBC (Bld) [#/Vol] 10*3/uL Normal <0.01 [facility] Comment on above: Order Comment: Speci men Type: BLOOD SPECIMENOrdering Facility: [facility] Address: [address] [place] [address] Performed By: #### 5 7021-8 ####[facility] LABCLIA [id number] [place] [address] [place] Nucleated RBC/100 WBC (Bld) [Ratio] 0.0 /100 WBC Normal [facility] Comment on above: Order Comment: Speci men Type: BLOOD SPECIMENOrdering Facility: [facility] Address: [address] [place] [address] Performed By: #### 5 7021-8 ####[facility] LABCLIA [id number] [place] [address] [place] Platelet mean volume (Bld) [Entitic vol] 12.0 fL Normal 9.0-12.7 [facility] Comment on above: Order Comment: Speci men Type: BLOOD SPECIMENOrdering Facility: [facility] Address: [address] [place] [address] Performed By: #### 5 7021-8 ####[facility] LABIA [id number] [place] [address] [place] Platelets (Bld) [#/Vol] 57 10*3/uL Low 150-400 [facility] Comment on above: Order Comment: Speci men Type: BLOOD SPECIMENOrdering Facility: [facility] Address: [address] [place] [address] Performed By: #### 5 7021-8 ####[facility] [id number] [place] [address] [place] RBC (Bld) [#/Vol] 2.43 10*6/uL Low 4.20-6.00 [facility] Comment on above: Order Comment: Speci men Type: BLOOD SPECIMENOrdering Facility: [facility] Address: [address] [place] [address] Performed By: #### 5 7021-8 ####[facility] [id number] [place] [address] [place] WBC (Bld) [#/Vol] 3.37 10*3/uL Low 3.70-11.00 [facility] Comment on above: Order Comment: Speci men Type: BLOOD SPECIMENOrdering Facility: [facility] Address: [address] [place] [address] Performed By: #### 5 7021-8 ####[facility] LABIA [id number] [place] [id number] [place] CONSULT PROGon 11-17-2024 CONSULT PROG Normal [facility] Fact Xa PPP-aCncon Coagulation factor X activated act Coag Qn (PPP) <0.10 Normal <0.10 [facility] Comment on above: Order Comment: Ezekiel ramirez Type: BLOOD SPECIMENOrdering Facility: [facility] Address: [address] [place] [address] Result Comment: The recommended therapeutic range for treatment of venous and arterial thrombosis with intravenous unfractionated heparin is an anti Xa activity level of 0.3 to 0.7 IU/mL. In patients with concomitant therapy with thrombolytic agents and/or platelet glycoprotein IIb/IIIa antagonists, the recommended therapeutic range is an anti Xa activity level of 0.2 to 0.5 IU/mL. Performed By: #### 3 217-7 ####[facility] [id number] [place] [address] [place] Fibrinogen PPP-mCncon 2024 Fibrinogen Coag (PPP) [Mass/Vol] 114 mg/dL Low 200-400 [facility] Comment on above: Order Comment: Ezekiel ramirez Type: BLOOD SPECIMENOrdering Facility: [facility] Address: [address] [place] [address] Performed By: #### 3 255-7, 98663-8 ####[facility] [id number] [place] [address] [place] Hepatic function 2000 panelo n 11-17-2024 Albumin [Mass/Vol] 2.7 g/dL Low 3.9-4.9 [facility] Comment on above: Order Comment: Ezekiel ramirez Type: BLOOD SPECIMENOrdering Facility: [facility] Address: [address] [place] [address] Performed By: #### 2 4321-2, 79542-8, 2777-1 ####[facility] [id number] [place] [address] [place] ALP [Catalytic activity/Vol] 276 U/L High 38-113 [facility] Comment on above: Order Comment: Ezekiel ramirez Type: BLOOD SPECIMENOrdering Facility: [facility] Address: [address] [place] [address] Performed By: #### 2 4321-2, 45025-3, 2776-1 ####[facility] LABIA [id number] [place] [address] [place] ALT [Catalytic activity/Vol] 35 U/L Normal 10-54 [facility] Comment on above: Order Comment: Speci men Type: BLOOD SPECIMENOrdering Facility: [facility] Address: [address] [place] [address] Performed By: #### 2 4321-2, 45259-6, 2776- ####[facility] LABIA [id number] [place] [address] [place] AST [Catalytic activity/Vol] 80 U/L High 14-40 [facility] Comment on above: Order Comment: Speci men Type: BLOOD SPECIMENOrdering Facility: [facility] Address: [address] [place] [address] Performed By: #### 2 4321-2, 76008-3, 2776- ####[facility] LABIA [id number] [place] [address] [place] Bilirubin [Mass/Vol] 1.8 mg/dL High 0.2-1.3 [facility] Comment on above: Order Comment: Speci men Type: BLOOD SPECIMENOrdering Facility: [facility] Address: [address] [place] [address] Performed By: #### 2 4321-2, 02536-3, 2776- ####[facility] LABIA [id number] [place] [id number] [place] Bilirubin.conjugated [Mass/Vol] 1.0 mg/dL High <0.3 [facility] Comment on above: Order Comment: Speci men Type: BLOOD SPECIMENOrdering Facility: [facility] Address: [address] [place] [address] Performed By: #### 2 4321-2, 99942-0, 7-1 ####[facility] [id number] [place] [id number] [place] Protein [Mass/Vol] 5.2 g/dL Low 6.3-8.0 [facility] Comment on above: Order Comment: Speci men Type: BLOOD SPECIMENOrdering Facility: [facility] Address: [address] [place] [address] Performed By: #### 2 4321-2, 00516-3, 2777- ####[facility] [id number] [place] [id number] [place] NUTRITIONon 11-17-2024 NUTRITION Normal [facility] PSA/PROSTATE SPECIFIC ANTIGE N SCREENINGon 11-17-2024 Prostate specific Ag [Mass/Vol] 0.52 ng/mL Normal <2.60 [facility] Comment on above: Order Comment: Speci men Type: BLOOD SPECIMENOrdering Facility: [facility] Address: [address] [place] [address] Result Comment: Tota l PSA test methodology used is the Electrochemiluminescence Immunoassay by [employer]. Total PSA values by differing methodologies cannot be interchanged. Performed By: #### P SAS1 ####[facility] [id number] [place] [id number] [place] PT panel Coag (PPP)on 2024 INR Coag (PPP) [Relative time] 2.0 {INR} High 0.9-1.3 [facility] Comment on above: Order Comment: Speci men Type: BLOOD SPECIMENOrdering Facility: [facility] Address: [address] [place] [address] Result Comment: Sarah min K Antagonist (VKA) Therapeutic Range: INR 2 to 3 (Target INR of 2.5)Note: For patients treated with VKA drugs, such as warfarin, the [place] [employer] 2012 Guideline recommends [...] al. Chest 2012, 141:7S-47SNishimura RA, et al. [facility] 2017, 70: 252-289 Performed By: #### 3 255-7, 90814-3 ####[facility] [id number] [place] [address] [place] PT Coag (PPP) [Time] 20.6 s High 9.7-13.0 [facility] Comment on above: Order Comment: Ezekiel ramirez Type: BLOOD SPECIMENOrdering Facility: [facility] Address: [address] [place] [address] Performed By: #### 3 255-7, 22771-5 ####[facility] LABIA [id number] [place] [address] [place] PTT, ANTICOAGULANT THERAPYon 11-17-2024 aPTT Coag (PPP) [Time] 41.6 s High 23.0-32.4 [facility] Comment on above: Order Comment: Ezekiel ramirez Type: BLOOD SPECIMENOrdering Facility: [facility] Address: [address] [place] [address] Performed By: #### P TTAC ####[facility] [id number] [place] [address] [place] Phosphate SerPl-mCncon 11-17 Phosphate [Mass/Vol] 1.9 mg/dL Low 2.7-4.8 [facility] Comment on above: Order Comment: Ezekiel ramirez Type: BLOOD SPECIMENOrdering Facility: [facility] Address: [address] [place] [address] Performed By: #### 2 4321-2, 91781-2, 2777-1 ####[facility] LABCLIA [id number] [place] [id number] [place] THERAPY NTon 11-17-2024 THERAPY NT Normal [facility] aPTT PPPon 11-17-2024 aPTT Coag (PPP) [Time] s High 23.0-32.4 Cl [facility] Comment on above: Order Comment: Spechelder ramirez Type: BLOOD SPECIMENOrdering Facility: [facility] Address: [address] [place] [address] Result Comment: Resu lt rechecked.Sample checked for clot. Performed By: #### 1 4979-9, PTTAC ####[facility] LABIA [id number] [address] [place] ANES POSTPROC EVALon 025 ANES POSTPROC EVAL Normal [facility] ANES PRE-OPon 11-16-2024 ANES PRE-OP Normal [facility] Albumin Fld-mCncon Albumin (Body fld) [Mass/Vol] 0.2 g/dL Normal See Comment [facility] Comment on above: Order Comment: Ezekiel ramirez Type: FLUID SPECIMENOrdering Facility: [facility] Address: [address] [place] [address] Result Comment: Body Fluid Albumin may be [...] document C49A. PAULETTE Diaz: Clinical Laboratory Standards [place]: 2007.2. Amy JACKSON. Serum to ascites albumin gradient. UpToDate. 2015. Accessed on November 15, 2015.This test was developed, and its performance characteristics determined by the [facility] Department of Pathology and Laboratory Medicine. It has not been cleared or approved by the FDA. The [facility] Department of Pathology and Laboratory Medicine is regulated under CLIA as qualified to perform high-complexity testing. This test is used for clinical purposes. It should not be regarded as investigational or for research. Performed By: #### 1 795-4, 2881-1, 1747-5 ####[facility] [id number] [place] [address] [place] Fluid Nom (Body fld) Ascites Fluid Normal C [facility] Comment on above: Order Comment: Speci men Type: FLUID SPECIMENOrdering Facility: [facility] Address: [address] [place] [address] Performed By: #### 1 795-4, 2881-1, 1747-5 ####[facility] [id number] [place] [id number] [place] Amylase Fld-cCncon 5 Amylase (Body fld) [Catalytic activity/Vol] 17 U/L Normal See Comment [facility] Comment on above: Order Comment: [facility] Type: FLUID SPECIMENOrdering Facility: [facility] Address: [address] [place] [address] Result Comment: PLEU RAL FLUIDS:Amylase measurement in [...] document C49-A. PAULETTE Diaz: Clinical Laboratory Standards [place]; 2007.3. Kelby CONCEPCION, John BRAR, Star DJ. Use of cyst fluid CEA, CA19-9, and amylase for evaluation of pancreatic lesions. Clinical Biochemistry. 2009;42:7687-8268.This test was developed, and its performance characteristics determined by the [facility] Department of Pathology and Laboratory Medicine. It has not been cleared or approved by the FDA. The [facility] Department of Pathology and Laboratory Medicine is regulated under CLIA as qualified to perform high-complexity testing. This test is used for clinical purposes. It should not be regarded as investigational or for research. Performed By: #### 1 795-4, 2881-1, 1747-5 ####[facility] LABCLIA [id number] [address] [address] [place] BODY FLUID CELL COUNTon 04-1 Clarity (Unsp spec) Clear Normal Clear [facility] Comment on above: Order Comment: Speci men Type: FLUID SPECIMENOrdering Facility: [facility] Address: [address] [place] [address] Performed By: #### C CBF, [id number] ####[facility] LABCLIA [id number] [address] [place] [address] [place] Color (Body fld) Yellow Normal Yellow [facility] Comment on above: Order Comment: Speci men Type: FLUID SPECIMENOrdering Facility: [facility] Address: [address] [place] [address] Performed By: #### C CBF, [id number] ####[facility] LABCLIA [id number] [address] [id number] [address] [place] RBC Manual cnt (Body fld) [#/Vol] 3000 /uL High <2000 [facility] Comment on above: Order Comment: Speci men Type: FLUID SPECIMENOrdering Facility: [facility] Address: [address] [place] [address] Performed By: #### C CBF, [id number] ####[facility] LABCLIA [id number] [place] [address] [place] Specimen source Nom (Body fld) Ascites Fluid Normal [facility] Comment on above: Order Comment: Speci men Type: FLUID SPECIMENOrdering Facility: [facility] Address: [address] [place] [address] Performed By: #### C CBF, [id number] ####[facility] LABCLIA [id number] [place] [address] [place] WBC Manual cnt (Body fld) [#/Vol] 58 /uL Normal <1000 [facility] Comment on above: Order Comment: Speci men Type: FLUID SPECIMENOrdering Facility: [facility] Address: [address] [place] [address] Performed By: #### C CBF, [id number] ####[facility] LABCLIA [id number] [place] [address] [place] Bacteria Fld Culton 11-17-19 Bacteria identified Cx Nom (Body fld) CULTURE, BODY FLD: No growth GRAM STAIN: No organisms seen Few Polymorphonuclear leukocytes Gram stain performed on cytospun specimen. Gram stain from primary specimen Normal [facility] Comment on above: Performed By: #### 6 35-3, 611-4 ####[facility] LABCLIA [id number] [place] [address] [place] Bacteria Spec Anaerobe Culto n 11-16-2024 Bacteria identified Anaer cx Nom (Unsp spec) Negative Normal [facility] Comment on above: Performed By: #### 6 35-3, 611-4 ####[facility] LABCLIA [id number] [address] [address] [place] Basic metabolic 2000 panelon 11-16-2024 Anion gap [Moles/Vol] 10 mmol/L Normal 8-15 [facility] Comment on above: Order Comment: Speci men Type: BLOOD SPECIMENOrdering Facility: [facility] Address: [address] [place] [address] Performed By: #### 2 4321-2, 76599-5, 2776- ####[facility] LABCLIA [id number] [place] [id number] [place] Calcium [Mass/Vol] 8.4 mg/dL Low 8.5-10.2 [facility] Comment on above: Order Comment: Speci men Type: BLOOD SPECIMENOrdering Facility: [facility] Address: [address] [place] [address] Performed By: #### 2 4321-2, 93037-0, 2776- ####[facility] LABCLIA [id number] [place] [id number] [place] Chloride [Moles/Vol] 102 mmol/L Normal 98-107 [facility] Comment on above: Order Comment: Speci men Type: BLOOD SPECIMENOrdering Facility: [facility] Address: [address] [place], [place] [address] Performed By: #### 2 4321-2, 83286-5, 2776- ####[facility] LABCLIA [id number] [address] [address] [place] CO2 [Moles/Vol] 18 mmol/L Low 22-30 [facility] Comment on above: Order Comment: Speci men Type: BLOOD SPECIMENOrdering Facility: [facility] Address: [address] [place], [place] [address] Performed By: #### 2 4321-2, 19569-9, 277-1 ####[facility] LABCLIA [id number] [place] [id number] [place] Creatinine [Mass/Vol] 0.73 mg/dL Normal 0.73-1.22 [facility] Comment on above: Order Comment: Ezekiel ramirez Type: BLOOD SPECIMENOrdering Facility: [facility] Address: [address] [place] [address] Performed By: #### 2 4321-2, 28628-2, 2777- ####[facility] [id number] [place] [address] [place] [address] [facility] Creatinine and Glomerular filtration rate.predicted panel (S/P/Bld) 105 mL/min/1.73m??? Normal >=60 [facility] Comment on above: Order Comment: Ezekiel ramirez Type: BLOOD SPECIMENOrdering Facility: [facility] Address: [address] [place] [address] Result Comment: Patric mated Glomerular Filtration Rate [...] actual GFR. Performed By: #### 2 4321-2, 01899-5, 277- ####[facility] [id number] [place] [id number] [place] Glucose [Mass/Vol] 181 mg/dL High 74-99 [facility] Comment on above: Order Comment: Ezekiel james Type: BLOOD SPECIMENOrdering Facility: [facility] Address: [address] [place] [address] Result Comment: The [place] Diabetes Association (ADA) provides guidance for cutoff [...] Standards of Medical Care in Diabetes 2016, [place] [employer] Association. Diabetes Care. 2016.39(Suppl 1). Performed By: #### 2 4321-2, 01210-7, 2776- ####[facility] LABCLIA [id number] [place] [address] [place] Potassium [Moles/Vol] 3.6 mmol/L Low 3.7-5.1 [facility] Comment on above: Order Comment: Speci men Type: BLOOD SPECIMENOrdering Facility: [facility] Address: [address] [place] [address] Performed By: #### 2 4320-2, 02434-9, 2776-08 ####[facility] LABCLIA [id number] [place] [address] [place] Sodium [Moles/Vol] 130 mmol/L Low 136-144 [facility] Comment on above: Order Comment: Speci men Type: BLOOD SPECIMENOrdering Facility: [facility] Address: [address] [place] [address] Performed By: #### 2 432-2, 91018-1, 2776-08 ####[facility] LABCLIA [id number] [place] [address] [place] Urea nitrogen [Mass/Vol] 9 mg/dL Normal 9-24 [facility] Comment on above: Order Comment: Speci men Type: BLOOD SPECIMENOrdering Facility: [facility] Address: [address] [place] [address] Performed By: #### 2 432-2, 21771-8, 2776-08 ####[facility] LABCLIA [id number] [place] [id number] [place] CBC W Auto Differential pane l (Bld)on 11-16-2024 Basophils (Bld) [#/Vol] 0.05 10*3/uL Normal <0.11 [facility] Comment on above: Order Comment: Speci men Type: BLOOD SPECIMENOrdering Facility: [facility] Address: [address] [place] [address] Performed By: #### 5 7021-8 ####[facility] LABCLIA [id number] [facility] [address], [place] [address] [place] Basophils/100 WBC (Bld) 0.8 % Normal [facility] Comment on above: Order Comment: Speci men Type: BLOOD SPECIMENOrdering Facility: [facility] Address: [address] [place] [address] Performed By: #### 5 7021-8 ####[facility] LABCLIA [id number] [place] [address] [place] Differential cell count method Nom (Bld) Auto Normal [facility] Comment on above: Order Comment: Speci men Type: BLOOD SPECIMENOrdering Facility: [facility] Address: [address] [place] [address] Performed By: #### 5 7021-8 ####[facility] LABCLIA [id number] [place] [address] [place] Eosinophils (Bld) [#/Vol] 0.22 10*3/uL Normal <0.46 [facility] Comment on above: Order Comment: Speci men Type: BLOOD SPECIMENOrdering Facility: [facility] Address: [address] [place] [address] Performed By: #### 5 7021-8 ####[facility] LABCLIA [id number] [place] [address] [place] Eosinophils/100 WBC (Bld) 3.6 % Normal [facility] Comment on above: Order Comment: Speci men Type: BLOOD SPECIMENOrdering Facility: [facility] Address: [address] [place] [address] Performed By: #### 5 7021-8 ####[facility] LABCLIA [id number] [place] [address] [place] Erythrocyte distribution width (RBC) [Ratio] 16.7 % High 11.5-15.0 [facility] Comment on above: Order Comment: Speci men Type: BLOOD SPECIMENOrdering Facility: [facility] Address: [address] [place] [address] Performed By: #### 5 7021-8 ####[facility] LABIA [id number] [place] [address] [place] Hematocrit (Bld) [Volume fraction] 24.0 % Low 39.0-51.0 [facility] Comment on above: Order Comment: Speci men Type: BLOOD SPECIMENOrdering Facility: [facility] Address: [address] [place] [address] Performed By: #### 5 7021-8 ####[facility] LABIA [id number] [place] [address] [place] Hemoglobin (Bld) [Mass/Vol] 8.3 g/dL Low 13.0-17.0 [facility] Comment on above: Order Comment: Speci men Type: BLOOD SPECIMENOrdering Facility: [facility] Address: [address] [place] [address] Performed By: #### 5 7021-8 ####[facility] LABCLIA [id number] [place] [address] [place] Immature granulocytes (Bld) [#/Vol] 0.05 10*3/uL Normal <0.10 [facility] Comment on above: Order Comment: Speci men Type: BLOOD SPECIMENOrdering Facility: [facility] Address: [address] [place] [address] Performed By: #### 5 7021-8 ####[facility] LABCLIA [id number] [place] [address] [place] Immature granulocytes/100 WBC (Bld) 0.8 % Normal [facility] Comment on above: Order Comment: Speci men Type: BLOOD SPECIMENOrdering Facility: [facility] Address: [address] [place] [address] Performed By: #### 5 7021-8 ####[facility] LABCLIA [id number] [place] [address] [place] Lymphocytes (Bld) [#/Vol] 0.75 10*3/uL Low 1.00-4.00 [facility] Comment on above: Order Comment: Speci men Type: BLOOD SPECIMENOrdering Facility: [facility] Address: [address] [place] [address] Performed By: #### 5 7021-8 ####[facility] LABCLIA [id number] [place] [address] [place] Lymphocytes/100 WBC (Bld) 12.4 % Normal [facility] Comment on above: Order Comment: Speci men Type: BLOOD SPECIMENOrdering Facility: [facility] Address: [address] [place] [address] Performed By: #### 5 7021-8 ####[facility] LABCLIA [id number] [place] [address] [place] MCH (RBC) [Entitic mass] 31.9 pg Normal 26.0-34.0 [facility] Comment on above: Order Comment: Speci men Type: BLOOD SPECIMENOrdering Facility: [facility] Address: [address] [place] [address] Performed By: #### 5 7021-8 ####[facility] LABCLIA [id number] [place] [address] [place] MCHC (RBC) [Mass/Vol] 34.6 g/dL Normal 30.5-36.0 [facility] Comment on above: Order Comment: Speci men Type: BLOOD SPECIMENOrdering Facility: [facility] Address: [address] [place] [address] Performed By: #### 5 7021-8 ####[facility] LABCLIA [id number] [place] [address] [place] MCV (RBC) [Entitic vol] 92.3 fL Normal 80.0-100.0 [facility] Comment on above: Order Comment: Speci men Type: BLOOD SPECIMENOrdering Facility: [facility] Address: [address] [place] [address] Performed By: #### 5 7021-8 ####[facility] LABCLIA [id number] [place] [address] [place] Monocytes (Bld) [#/Vol] 0.68 10*3/uL Normal <0.87 [facility] Comment on above: Order Comment: Speci men Type: BLOOD SPECIMENOrdering Facility: [facility] Address: [address] [place] [address] Performed By: #### 5 7021-8 ####[facility] LABCLIA [id number] [place] [address] [place] Monocytes/100 WBC (Bld) 11.3 % Normal [facility] Comment on above: Order Comment: Speci men Type: BLOOD SPECIMENOrdering Facility: [facility] Address: [address] [place] [address] Performed By: #### 5 7021-8 ####[facility] LABCLIA [id number] [place] [id number] [place] Neutrophils (Bld) [#/Vol] 4.28 10*3/uL Normal 1.45-7.50 [facility] Comment on above: Order Comment: Speci men Type: BLOOD SPECIMENOrdering Facility: [facility] Address: [address] [place] [address] Performed By: #### 5 7021-8 ####[facility] LABCLIA [id number] [place] [address] [place] Neutrophils/100 WBC (Bld) 71.1 % Normal [facility] Comment on above: Order Comment: Speci men Type: BLOOD SPECIMENOrdering Facility: [facility] Address: [address] [place] [address] Performed By: #### 5 7021-8 ####[facility] LABCLIA [id number] [place] [address] [place] Nucleated RBC (Bld) [#/Vol] 10*3/uL Normal <0.01 [facility] Comment on above: Order Comment: Speci men Type: BLOOD SPECIMENOrdering Facility: [facility] Address: [address] [place] [address] Performed By: #### 5 7021-8 ####[facility] LABCLIA [id number] [place] [address] [place] Nucleated RBC/100 WBC (Bld) [Ratio] 0.0 /100 WBC Normal [facility] Comment on above: Order Comment: Speci men Type: BLOOD SPECIMENOrdering Facility: [facility] Address: [address] [place] [address] Performed By: #### 5 7021-8 ####[facility] LABCLIA [id number] [place] [address] [place] Platelet mean volume (Bld) [Entitic vol] 11.8 fL Normal 9.0-12.7 [facility] Comment on above: Order Comment: Speci men Type: BLOOD SPECIMENOrdering Facility: [facility] Address: [address] [place] [address] Performed By: #### 5 7021-8 ####[facility] LABCLIA [id number] [place] [address] [place] Platelets (Bld) [#/Vol] 59 10*3/uL Low 150-400 [facility] Comment on above: Order Comment: Speci men Type: BLOOD SPECIMENOrdering Facility: [facility] Address: [address] [place] [address] Result Comment: No c lot detected.Results checked and verified. Performed By: #### 5 7021-8 ####[facility] LABCLIA [id number] [place] [address] [place] RBC (Bld) [#/Vol] 2.60 10*6/uL Low 4.20-6.00 [facility] Comment on above: Order Comment: Speci men Type: BLOOD SPECIMENOrdering Facility: [facility] Address: [address] [place] [address] Performed By: #### 5 7021-8 ####[facility] LABCLIA [id number] [place] [address] [place] WBC (Bld) [#/Vol] 6.03 10*3/uL Normal 3.70-11.00 [facility] Comment on above: Order Comment: Speci men Type: BLOOD SPECIMENOrdering Facility: [facility] Address: [address] [place] [address] Performed By: #### 5 7021-8 ####[facility] LABCLIA [id number] [place] [address] [place] CONSULT PROGon 11-16-2024 CONSULT PROG Normal [facility] CYTOLOGY NON-GYNon 5 AP DISCLAIMER Normal [facility] Comment on above: Order Comment: Speci men Type: FLUID SPECIMENOrdering Facility: [facility] Address: [address] [place] [address] Result Comment: Shellie pugh Developed Test (LDT) Disclaimer:Performance characteristics of immunohistochemical, immunofluorescent, and chromogenic in-situ hybridization tests have been determined by the performing laboratory within [facility]'s [facility]ology and Laboratory Medicine Department ([facility], [facility], [facility], [facility], [facility], [facility], or [facility]) in a manner consistent with [...] stain appropriately. Performed By: #### C YTONON ####[facility] LABCLIA [id number] [address] [place] CASE REPORT Normal [facility] Comment on above: Order Comment: Speci men Type: FLUID SPECIMENOrdering Facility: [facility] Address: [address] [place] [address] Result Comment: [facility] Cytology Report Case: [id number] Provider: Young rCuz MD Collected: 11/16/2024 08:42 AMOrdering Location: [place] [address] Received: 11/16/2024 06:20 PMPathologist: Stefani Mcneal MDSpecimen: Peritoneal Fluid. Performed By: #### C YTONON ####[facility] LABIA [id number] [address] [place] CLINICAL HISTORY Cirrhosis with ascites Normal [facility] Comment on above: Order Comment: Speci men Type: FLUID SPECIMENOrdering Facility: [facility] Address: [address] [place] [address] Performed By: #### C YTONON ####[facility] LABIA [id number] [address] FINAL DIAGNOSIS Normal [facility] Comment on above: Order Comment: Speci men Type: FLUID SPECIMENOrdering Facility: [facility] Address: [address] [place] [address] Result Comment: A - Peritoneal Fluid Negative for malignant cells. Chronic inflammation.The following cell blocks were associated with this case:A1 Cell Block, Alcohol Fixed at 1223 EDT Performed By: #### C YTONON ####[facility] LABCLIA [id number] [place] [address] [place] FINAL PERFORMING LAB Normal [facility] Comment on above: Order Comment: Speci men Type: FLUID SPECIMENOrdering Facility: [facility] Address: [address] [place] [address] Result Comment: Tech nical component, farm adviser screening performed at: [facility], [address] [place] [address] CLIA: [id number] interpretation performed at: [facility], [address] [place] [address] CLIA# [id number] Director: Titi Voss MD Performed By: #### C YTONON ####[facility] LABCLIA [id number] [place] [address] [place] GROSS DESCRIPTION Normal [facility] Comment on above: Order Comment: Speci men Type: FLUID SPECIMENOrdering Facility: [facility] Address: [address] [place] [address] Result Comment: A. P eritoneal Fluid.1450 cc opaque red fluid . ThinPrep and Cell Block prepared. Performed By: #### C YTONON ####[facility] LABCLIA [id number] [place] [address] [place] ECG COMPLETEon 11-16-2024 ECG COMPLETE Normal [facility] Fibrinogen PPP-mCncon 2024 Fibrinogen Coag (PPP) [Mass/Vol] 127 mg/dL Low 200-400 [facility] Comment on above: Order Comment: Speci men Type: BLOOD SPECIMENOrdering Facility: [facility] Address: [address] [place] [address] Performed By: #### 3 255-7, 45925-2 ####[facility]CLIA [id number] [place] [address] [place] Hepatic function 2000 panelo n 11-16-2024 Albumin [Mass/Vol] 2.8 g/dL Low 3.9-4.9 [facility] Comment on above: Order Comment: Speci men Type: BLOOD SPECIMENOrdering Facility: [facility] Address: [address] [place] [address] Performed By: #### 2 4321-2, 91381-1, 2777-1 ####[facility]CLIA [id number] [place] [address] [place] ALP [Catalytic activity/Vol] 295 U/L High 38-113 [facility] Comment on above: Order Comment: Speci men Type: BLOOD SPECIMENOrdering Facility: [facility] Address: [address] [place] [address] Performed By: #### 2 4321-2, 80929-9, 2777-1 ####[facility] [id number] [address] [place] ALT [Catalytic activity/Vol] 38 U/L Normal 10-54 [facility] Comment on above: Order Comment: Speci men Type: BLOOD SPECIMENOrdering Facility: [facility] Address: [address] [place] [address] Performed By: #### 2 4321-2, 95934-4, 277-1 ####[facility]CLIA [id number] [place] [address] [place] AST [Catalytic activity/Vol] 88 U/L High 14-40 [facility] Comment on above: Order Comment: Speci men Type: BLOOD SPECIMENOrdering Facility: [facility] Address: [address] [place] [address] Performed By: #### 2 4321-2, 80872-4, 2777-1 ####[facility]CLIA [id number] [place] [id number] [place] Bilirubin [Mass/Vol] 1.8 mg/dL High 0.2-1.3 [facility] Comment on above: Order Comment: Speci men Type: BLOOD SPECIMENOrdering Facility: [facility] Address: [address] [place] [address] Performed By: #### 2 4321-2, 19197-7, 277-1 ####[facility]CL[facility] [id number] [place] [address] [place] Bilirubin.conjugated [Mass/Vol] 0.9 mg/dL High <0.3 [facility] Comment on above: Order Comment: Speci men Type: BLOOD SPECIMENOrdering Facility: [facility] Address: [address] [place] [address] Performed By: #### 2 4321-2, 48594-0, 277- ####[facility]CL[facility] [id number] [place] [address] [place] Protein [Mass/Vol] 5.5 g/dL Low 6.3-8.0 [facility] Comment on above: Order Comment: Speci men Type: BLOOD SPECIMENOrdering Facility: [facility] Address: [address] [place] [address] Performed By: #### 2 4321-2, 92654-1, 277- ####[facility]CLIA [id number] [place] [address] [place] MANUAL DIFFERENTIAL, BODY FL UIDon 11-16-2024 DIF TTL, BODY FLUID 100 cells counted Normal [facility] Comment on above: Order Comment: Speci men Type: FLUID SPECIMENOrdering Facility: [facility] Address: [address] [place] [address] Performed By: #### C CBF, [id number] ####[facility]CLIA [id number] [address] [address] [place] LYMPH%, BF 47 % High 18-36 [facility] Comment on above: Order Comment: Speci men Type: FLUID SPECIMENOrdering Facility: [facility] Address: [address] [place] [address] Performed By: #### C CBF, [id number] ####[facility]CLIA [id number] [address] [place] [address] [place] MACRO%, BF 6 % Low 64-80 [facility] Comment on above: Order Comment: Speci men Type: FLUID SPECIMENOrdering Facility: [facility] Address: [address] [place] [address] Performed By: #### C CBF, [id number] ####[facility]CLIA [id number] [address], [place] [address] [place] MESO %, BF 25 % High 0-2 [facility] Comment on above: Order Comment: Speci men Type: FLUID SPECIMENOrdering Facility: [facility] Address: [address] [place] [address] Performed By: #### C CBF, [id number] ####[facility]CLIA [id number] [address], [facility]95 [place] MONO% BF 8 % Normal [facility] Comment on above: Order Comment: Speci men Type: FLUID SPECIMENOrdering Facility: [facility] Address: [address] [place] [address] Performed By: #### C CBF, [id number] ####[facility]CLIA [id number] [address], [facility]95 [place] NEUT%, BF 14 % High 0-1 [facility] Comment on above: Order Comment: Speci men Type: FLUID SPECIMENOrdering Facility: [facility] Address: [address] [place] [address] Performed By: #### C CBF, [id number] ####[facility]CLIA [id number] [address], [facility]95 [place] NURSING PROGon 11-16-2024 NURSING PROG Normal [facility] NURSING PROG Normal [facility] PT panel Coag (PPP)on 2024 INR Coag (PPP) [Relative time] 2.1 {INR} High 0.9-1.3 [facility] Comment on above: Order Comment: Ezekiel ramirez Type: BLOOD SPECIMENOrdering Facility: [facility] Address: [address] [place] [address] Result Comment: Sarah min K Antagonist (VKA) Therapeutic Range: INR 2 to 3 (Target INR of 2.5)Note: For patients treated with VKA drugs, such as warfarin, the [employer] 2012 Guideline recommends [...] al. Chest 2012, 141:7S-47SNishimura RA, et al. [facility] 2017, 70: 252-289 Performed By: #### 3 4528-0 ####[facility] [id number] [place] [address] [place] PT Coag (PPP) [Time] 21.5 s High 9.7-13.0 [facility] Comment on above: Order Comment: Ezekiel ramirez Type: BLOOD SPECIMENOrdering Facility: [facility] Address: [address] [place] [address] Performed By: #### 3 4528-0 ####[facility] LABIA [id number] [place] [address] [place] INR Coag (PPP) [Relative time] 2.0 {INR} High 0.9-1.3 [facility] Comment on above: Order Comment: Speci men Type: BLOOD SPECIMENOrdering Facility: [facility] Address: [address] [place] [address] Result Comment: Sarah min K Antagonist (VKA) Therapeutic Range: INR 2 to 3 (Target INR of 2.5)Note: For patients treated with VKA drugs, such as warfarin, the [employer] 2012 Guideline recommends [...] al. Chest 2012, 141:7S-47SNishbethel RA, et al. [facility] 2017, 70: 252-289 Performed By: #### 3 255-7, 67977-4 ####[facility] [id number] [place] [address] [place] PT Coag (PPP) [Time] 20.3 s High 9.7-13.0 [facility] Comment on above: Order Comment: Ezekiel ramirez Type: BLOOD SPECIMENOrdering Facility: [facility] Address: [address] [place] [address] Performed By: #### 3 255-7, 99981-1 ####[facility] [id number] [place] [id number] [place] Phosphate SerPl-mCncon 11-16 Phosphate [Mass/Vol] 2.3 mg/dL Low 2.7-4.8 [facility] Comment on above: Order Comment: Ezekiel ramirez Type: BLOOD SPECIMENOrdering Facility: [facility] Address: [address] [place] [address] Performed By: #### 2 4321-2, 50996-4, 2777-1 ####[facility] LABCLIA [id number] [place] [address] [place] Prot Fld-mCncon 11-16-2024 Protein (Body fld) [Mass/Vol] 0.5 g/dL Normal See Comment [facility] Comment on above: Order Comment: Speci men Type: FLUID SPECIMENOrdering Facility: [facility] Address: [address] [place] [address] Result Comment: Sero us fluids: Effusions are [...] document [email or web address]. PAULETTE Diaz: Clinical Laboratory Standards [place]: 2007. Performed By: #### 1 795-4, 2881-1, 1747-5 ####[facility] LABIA [id number] [place] [address] [place] THERAPY NTon 11-16-2024 THERAPY NT Normal [facility] THERAPY NT Normal [facility] BLOOD TB SCREENon 11-15-2024 M. tuberculosis tuberculin stim IFN-g Ql (Bld) Indeterminate Normal [facility] Comment on above: Order Comment: Speci men Type: BLOOD SPECIMENOrdering Facility: [facility] Address: [address] [place] [address] Performed By: #### I NFTBP ####[facility] LABIA [id number] [place] [address] [place] MITOGEN MINUS NIL 0.25 IU/mL Low >=0.50 [facility] Comment on above: Order Comment: Speci men Type: BLOOD SPECIMENOrdering Facility: [facility] Address: [address] [place] [address] Performed By: #### I NFTBP ####[facility]CLIA [id number] [place] [address] [place] TB GAMMA INTERPRETATION Normal [facility] Comment on above: Order Comment: Speci men Type: BLOOD SPECIMENOrdering Facility: [facility] Address: [address] [place] [address] Performed By: #### I NFTBP ####[facility]CLIA [id number] [place] [address] [place] TB NIL 0.01 IU/mL Normal <=8.00 [facility] Comment on above: Order Comment: Speci men Type: BLOOD SPECIMENOrdering Facility: [facility] Address: [address] [place] [address] Performed By: #### I NFTBP ####[facility] LABCLIA [id number] [place] [address] [place] TB1 AG MINUS NIL 0.00 IU/mL Normal <0.35 [facility] Comment on above: Order Comment: Speci men Type: BLOOD SPECIMENOrdering Facility: [facility] Address: [address] [place] [address] Performed By: #### I NFTBP ####[facility]CLIA [id number] [place] [address] [place] TB2 AG MINUS NIL 0.01 IU/mL Normal <0.35 [facility] Comment on above: Order Comment: Speci men Type: BLOOD SPECIMENOrdering Facility: [facility] Address: [address] [place] [address] Performed By: #### I NFTBP ####[facility]CLIA [id number] [address] [place] [address] [place] CASE MANAGEMon 11-15-2024 CASE MANAGEM Normal [facility] CASE MANAGEM Normal [facility] CBC W Auto Differential pane l (Bld)on 11-15-2024 Basophils (Bld) [#/Vol] 0.05 10*3/uL Normal <0.11 [facility] Comment on above: Order Comment: Speci men Type: BLOOD SPECIMENOrdering Facility: [facility] Address: [address] [place] [address] Performed By: #### 5 7021-8 ####[facility]CLIA [id number] [place] [address] [place] Basophils/100 WBC (Bld) 0.8 % Normal [facility] Comment on above: Order Comment: Speci men Type: BLOOD SPECIMENOrdering Facility: [facility] Address: [address] [place] [address] Performed By: #### 5 7021-8 ####[facility] LABCLIA [id number] [place] [address] [place] Differential cell count method Nom (Bld) Auto Normal [facility] Comment on above: Order Comment: Speci men Type: BLOOD SPECIMENOrdering Facility: [facility] Address: [address] [place] [address] Performed By: #### 5 7021-8 ####[facility]CLIA [id number] [place] [id number] [place] Eosinophils (Bld) [#/Vol] 0.28 10*3/uL Normal <0.46 [facility] Comment on above: Order Comment: Speci men Type: BLOOD SPECIMENOrdering Facility: [facility] Address: [address] [place] [address] Performed By: #### 5 7021-8 ####[facility] LABCLIA [id number] [place] [id number] [place] Eosinophils/100 WBC (Bld) 4.6 % Normal [facility] Comment on above: Order Comment: Speci men Type: BLOOD SPECIMENOrdering Facility: [facility] Address: [address] [place] [address] Performed By: #### 5 7021-8 ####[facility] LABCLIA [id number] [place] [address] [place] Erythrocyte distribution width (RBC) [Ratio] 16.8 % High 11.5-15.0 [facility] Comment on above: Order Comment: Speci men Type: BLOOD SPECIMENOrdering Facility: [facility] Address: [address] [place] [address] Performed By: #### 5 7021-8 ####[facility] LABCLIA [id number] [place] [address] [place] Hematocrit (Bld) [Volume fraction] 22.9 % Low 39.0-51.0 [facility] Comment on above: Order Comment: Speci men Type: BLOOD SPECIMENOrdering Facility: [facility] Address: [address] [place] [address] Performed By: #### 5 7021-8 ####[facility] LABCLIA [id number] [address], [address] [place] Hemoglobin (Bld) [Mass/Vol] 7.6 g/dL Low 13.0-17.0 [facility] Comment on above: Order Comment: Speci men Type: BLOOD SPECIMENOrdering Facility: [facility] Address: [address] [place] [address] Performed By: #### 5 7021-8 ####[facility] LABCLIA [id number] [place] [address] [place] Immature granulocytes (Bld) [#/Vol] 0.03 10*3/uL Normal <0.10 [facility] Comment on above: Order Comment: Speci men Type: BLOOD SPECIMENOrdering Facility: [facility] Address: [address] [place] [address] Performed By: #### 5 7021-8 ####[facility] LABCLIA [id number] [place] [address] [place] Immature granulocytes/100 WBC (Bld) 0.5 % Normal [facility] Comment on above: Order Comment: Speci men Type: BLOOD SPECIMENOrdering Facility: [facility] Address: [address] [place] [address] Performed By: #### 5 7021-8 ####[facility] LABCLIA [id number] [place] [address] [place] Lymphocytes (Bld) [#/Vol] 0.70 10*3/uL Low 1.00-4.00 [facility] Comment on above: Order Comment: Speci men Type: BLOOD SPECIMENOrdering Facility: [facility] Address: [address] [place] [address] Performed By: #### 5 7021-8 ####[facility] LABIA [id number] [place] [address] [place] Lymphocytes/100 WBC (Bld) 11.5 % Normal [facility] Comment on above: Order Comment: Speci men Type: BLOOD SPECIMENOrdering Facility: [facility] Address: [address] [place] [address] Performed By: #### 5 7021-8 ####[facility] LABCLIA [id number] [place] [address] [place] MCH (RBC) [Entitic mass] 30.6 pg Normal 26.0-34.0 [facility] Comment on above: Order Comment: Speci men Type: BLOOD SPECIMENOrdering Facility: [facility] Address: [address] [place] [address] Performed By: #### 5 7021-8 ####[facility] LABCLIA [id number] [place] [address] [place] MCHC (RBC) [Mass/Vol] 33.2 g/dL Normal 30.5-36.0 [facility] Comment on above: Order Comment: Speci men Type: BLOOD SPECIMENOrdering Facility: [facility] Address: [address] [place] [address] Performed By: #### 5 7021-8 ####[facility] LABCLIA [id number] [place] [address] [place] MCV (RBC) [Entitic vol] 92.3 fL Normal 80.0-100.0 [facility] Comment on above: Order Comment: Speci men Type: BLOOD SPECIMENOrdering Facility: [facility] Address: [address] [place] [address] Performed By: #### 5 7021-8 ####[facility] LABIA [id number] [place] [address] [place] Monocytes (Bld) [#/Vol] 0.73 10*3/uL Normal <0.87 [facility] Comment on above: Order Comment: Speci men Type: BLOOD SPECIMENOrdering Facility: [facility] Address: [address] [place] [address] Performed By: #### 5 7021-8 ####[facility] LABIA [id number] [place] [address] [place] Monocytes/100 WBC (Bld) 12.0 % Normal [facility] Comment on above: Order Comment: Speci men Type: BLOOD SPECIMENOrdering Facility: [facility] Address: [address] [place] [address] Performed By: #### 5 7021-8 ####[facility] LABCLIA [id number] [place] [address] [place] Neutrophils (Bld) [#/Vol] 4.30 10*3/uL Normal 1.45-7.50 [facility] Comment on above: Order Comment: Speci men Type: BLOOD SPECIMENOrdering Facility: [facility] Address: [address] [place] [address] Performed By: #### 5 7021-8 ####[facility] LABCLIA [id number] [place] [address] [place] Neutrophils/100 WBC (Bld) 70.6 % Normal [facility] Comment on above: Order Comment: Speci men Type: BLOOD SPECIMENOrdering Facility: [facility] Address: [address] [place] [address] Performed By: #### 5 7021-8 ####[facility] LABCLIA [id number] [place] [address] [place] Nucleated RBC (Bld) [#/Vol] 10*3/uL Normal <0.01 [facility] Comment on above: Order Comment: Speci men Type: BLOOD SPECIMENOrdering Facility: [facility] Address: [address] [place] [address] Performed By: #### 5 7021-8 ####[facility] LABIA [id number] [place] [address] [place] Nucleated RBC/100 WBC (Bld) [Ratio] 0.0 /100 WBC Normal [facility] Comment on above: Order Comment: Speci men Type: BLOOD SPECIMENOrdering Facility: [facility] Address: [address] [place] [address] Performed By: #### 5 7021-8 ####[facility] LABCLIA [id number] [place] [id number] [place] Platelet mean volume (Bld) [Entitic vol] 12.2 fL Normal 9.0-12.7 [facility] Comment on above: Order Comment: Speci men Type: BLOOD SPECIMENOrdering Facility: [facility] Address: [address] [place] [address] Performed By: #### 5 7021-8 ####[facility] LABCLIA [id number] [place] [address] [place] Platelets (Bld) [#/Vol] 53 10*3/uL Low 150-400 [facility] Comment on above: Order Comment: Speci men Type: BLOOD SPECIMENOrdering Facility: [facility] Address: [address] [place] [address] Performed By: #### 5 7021-8 ####[facility] [id number] [place] [address] [place] RBC (Bld) [#/Vol] 2.48 10*6/uL Low 4.20-6.00 [facility] Comment on above: Order Comment: Speci men Type: BLOOD SPECIMENOrdering Facility: [facility] Address: [address] [place] [address] Performed By: #### 5 7021-8 ####[facility] [id number] [place] [address] [place] WBC (Bld) [#/Vol] 6.09 10*3/uL Normal 3.70-11.00 [facility] Comment on above: Order Comment: Speci men Type: BLOOD SPECIMENOrdering Facility: [facility] Address: [address] [place] [address] Performed By: #### 5 7021-8 ####[facility] [id number] [place] [address] [place] CNOVon 11-15-2024 CNOV Normal [facility] CONSULTon 11-15-2024 CONSULT Normal [facility] CONSULT PROGon 11-15-2024 CONSULT PROG Normal [facility] Fibrinogen PPP-mCncon 2024 Fibrinogen Coag (PPP) [Mass/Vol] 123 mg/dL Low 200-400 [facility] Comment on above: Order Comment: Speci men Type: BLOOD SPECIMENOrdering Facility: [facility] Address: [address] [place] [address] Performed By: #### 3 255-7, 69918-5 ####[facility] LABCLIA [id number] [address] [address] [place] Hepatic function 2000 panelo n 11-15-2024 Albumin [Mass/Vol] 2.8 g/dL Low 3.9-4.9 [facility] Comment on above: Order Comment: Speci men Type: BLOOD SPECIMENOrdering Facility: [facility] Address: [address] [place] [address] Performed By: #### 2 4325-3, 13739-3 ####[facility] LABCLIA [id number] [place] [address] [place] ALP [Catalytic activity/Vol] 277 U/L High 38-113 [facility] Comment on above: Order Comment: Speci men Type: BLOOD SPECIMENOrdering Facility: [facility] Address: [address] [place] [address] Performed By: #### 2 4325-3, 53533-1 ####[facility] LABCLIA [id number] [place] [address] [place] ALT [Catalytic activity/Vol] 36 U/L Normal 10-54 [facility] Comment on above: Order Comment: Speci men Type: BLOOD SPECIMENOrdering Facility: [facility] Address: [address] [place] [address] Performed By: #### 2 4325-3, 31834-4 ####[facility] LABCLIA [id number] [facility] [address] [address] [place] AST [Catalytic activity/Vol] 87 U/L High 14-40 [facility] Comment on above: Order Comment: Speci men Type: BLOOD SPECIMENOrdering Facility: [facility] Address: [address] [place] [address] Performed By: #### 2 4325-3, 35390-2 ####[facility] LABCLIA [id number] [place] [address] [place] Bilirubin [Mass/Vol] 1.6 mg/dL High 0.2-1.3 [facility] Comment on above: Order Comment: Speci men Type: BLOOD SPECIMENOrdering Facility: [facility] Address: [address] [place] [address] Performed By: #### 2 4325-3, 50747-4 ####[facility] LABIA [id number] [place] [address] [place] Bilirubin.conjugated [Mass/Vol] 0.9 mg/dL High <0.3 [facility] Comment on above: Order Comment: Speci men Type: BLOOD SPECIMENOrdering Facility: [facility] Address: [address] [place] [place] [address] Performed By: #### 2 4325-3, 86141-8 ####[facility] [id number] [place] [address] [place] Protein [Mass/Vol] 5.4 g/dL Low 6.3-8.0 [facility] Comment on above: Order Comment: Speci men Type: BLOOD SPECIMENOrdering Facility: [facility] Address: [address] [place] [address] Performed By: #### 2 4325-3, 27244-9 ####[facility] [id number] [place] [address] [place] PT panel Coag (PPP)on 2024 INR Coag (PPP) [Relative time] 1.8 {INR} High 0.9-1.3 [facility] Comment on above: Order Comment: Speci men Type: BLOOD SPECIMENOrdering Facility: [facility] Address: [address] [place] [address] Result Comment: Sarah min K Antagonist (VKA) Therapeutic Range: INR 2 to 3 (Target INR of 2.5)Note: For patients treated with VKA drugs, such as warfarin, the [place] [employer] 2012 Guideline recommends [...] al. Chest 2012, 141:7S-47SNishimnicolle RA, et al. [facility] 2017, 70: 252-289 Performed By: #### 3 255-7, 50447-6 ####[facility] [id number] [place] [address] [place] PT Coag (PPP) [Time] 18.9 s High 9.7-13.0 [facility] Comment on above: Order Comment: Speci men Type: BLOOD SPECIMENOrdering Facility: [facility] Address: [address] [place] [address] Performed By: #### 3 255-7, 95648-0 ####[facility] [id number] [place] [address] [place] Renal function 2000 panelon 11-15-2024 Albumin [Mass/Vol] 2.9 g/dL Low 3.9-4.9 [facility] Comment on above: Order Comment: Speci men Type: BLOOD SPECIMENOrdering Facility: [facility] Address: [address] [place] [address] Performed By: #### 2 4325-3, 03858-1 ####[facility] [id number] [place] [address] [place] Anion gap [Moles/Vol] 15 mmol/L Normal 8-15 [facility] Comment on above: Order Comment: Speci men Type: BLOOD SPECIMENOrdering Facility: [facility] Address: [address] [place] [id number] Performed By: #### 2 4325-3, 70223-0 ####[facility] LABCLIA [id number] [address] [address] [place] Calcium [Mass/Vol] 8.4 mg/dL Low 8.5-10.2 [facility] Comment on above: Order Comment: Speci men Type: BLOOD SPECIMENOrdering Facility: [facility] Address: [address] [place], [place] [address] Performed By: #### 2 432-3, 21001-8 ####[facility] LABCLIA [id number] [place] [address] [place] Chloride [Moles/Vol] 99 mmol/L Normal 98-107 [facility] Comment on above: Order Comment: Speci men Type: BLOOD SPECIMENOrdering Facility: [facility] Address: [address] [place] [address] Performed By: #### 2 4325-3, 10252-8 ####[facility]CLIA [id number] [place] [address] [place] CO2 [Moles/Vol] 14 mmol/L Low 22-30 [facility] Comment on above: Order Comment: Speci men Type: BLOOD SPECIMENOrdering Facility: [facility] Address: [address] [place], [place] [address] Performed By: #### 2 4324-3, 57268-8 ####[facility]CLIA [id number] [place] [id number] [place] Creatinine [Mass/Vol] 0.80 mg/dL Normal 0.73-1.22 [facility] Comment on above: Order Comment: Speci men Type: BLOOD SPECIMENOrdering Facility: [facility] Address: [address] [place], [place] [address] Performed By: #### 2 432-3, 43300-1 ####[facility]CLIA [id number] [place] [address] [place] Creatinine and Glomerular filtration rate.predicted panel (S/P/Bld) 103 mL/min/1.73m??? Normal >=60 [facility] Comment on above: Order Comment: Ezekiel ramirez Type: BLOOD SPECIMENOrdering Facility: [facility] Address: [address] [place] [address] Result Comment: Patric mated Glomerular Filtration Rate [...] actual GFR. Performed By: #### 2 4325-3, 18675-9 ####[facility] [id number] [place] [address] [place] Glucose [Mass/Vol] 272 mg/dL High 74-99 [facility] Comment on above: Order Comment: Ezekiel ramirez Type: BLOOD SPECIMENOrdering Facility: [facility] Address: [address] [place] [address] Result Comment: The [place] [employer] (ADA) provides guidance for cutoff [...] Standards of Medical Care in Diabetes 2016, [place] [employer]. Diabetes Care. 2016.39(Suppl 1). Performed By: #### 2 4325-3, 44043-9 ####[facility] LABCLIA [id number] [address] [address] [place] Phosphate [Mass/Vol] 2.2 mg/dL Low 2.7-4.8 [facility] Comment on above: Order Comment: Speci men Type: BLOOD SPECIMENOrdering Facility: [facility] Address: [address] [place] [address] Performed By: #### 2 4325-3, 76435-1 ####[facility] LABCLIA [id number] [place] [id number] [place] Potassium [Moles/Vol] 3.8 mmol/L Normal 3.7-5.1 [facility] Comment on above: Order Comment: Speci men Type: BLOOD SPECIMENOrdering Facility: [facility] Address: [address] [place] [address] Performed By: #### 2 4325-3, 43639-9 ####[facility] LABCLIA [id number] [place] [id number] [place] Sodium [Moles/Vol] 128 mmol/L Low 136-144 [facility] Comment on above: Order Comment: Speci men Type: BLOOD SPECIMENOrdering Facility: [facility] Address: [address] [place] [address] Performed By: #### 2 4325-3, 11384-1 ####[facility]CLIA [id number] [place] [id number] [place] Urea nitrogen [Mass/Vol] 11 mg/dL Normal 9-24 [facility] Comment on above: Order Comment: Speci men Type: BLOOD SPECIMENOrdering Facility: [facility] Address: [address] [place] [address] Performed By: #### 2 4325-3, 61034-6 ####[facility] LABCLIA [id number] [address] [address] [place] SEPSIS LACTATEon 11-15-2024 Lactate [Moles/Vol] 3.2 mmol/L High <=2.0 [facility] Comment on above: Order Comment: Speci men Type: BLOOD SPECIMENOrdering Facility: [facility] Address: [address] [place] [address] Performed By: #### S LACT ####[facility] LABCLIA [id number] [address] [address] [place] SOCIAL WORKon 11-15-2024 SOCIAL WORK Normal [facility] THERAPY NTon 11-15-2024 THERAPY NT Normal [facility] THERAPY NT Normal [facility] TYPE + SCREENon 11-15-2024 ABO O Normal [facility] Comment on above: Order Comment: Speci men Type: BLOOD SPECIMENOrdering Facility: [facility] Address: [address] [place] [address] Performed By: #### T SCR ####[facility]CL[facility] [id number] [place] [address] [place] Rh Nom (Bld) Positive Normal [facility] Comment on above: Order Comment: Speci men Type: BLOOD SPECIMENOrdering Facility: [facility] Address: [address] [place] [address] Performed By: #### T SCR ####[facility]ANKCLIA [id number] [place] [address] [place] TYPE AND SCREEN EXPIRATION 11/18/2024 23:59 Normal [facility] Comment on above: Order Comment: Speci men Type: BLOOD SPECIMENOrdering Facility: [facility] Address: [address] [place] [address] Performed By: #### T SCR ####[facility]ANKCLIA [id number] [place] [address] [place] US ASCITES SURVEYon 11-16-19 US ASCITES SURVEY Normal [facility] Basic metabolic 2000 panelon 11-14-2024 Anion gap [Moles/Vol] 11 mmol/L Normal 8-15 [facility] Comment on above: Order Comment: Speci men Type: BLOOD SPECIMENOrdering Facility: [facility] Address: [address] [place] [address] Performed By: #### 2 4321-2, 79635-1, 2776-08, ####[facility] LABCLIA [id number] [facility] [address] [place] [address] [place] Calcium [Mass/Vol] 8.9 mg/dL Normal 8.5-10.2 [facility] Comment on above: Order Comment: Speci men Type: BLOOD SPECIMENOrdering Facility: [facility] Address: [address] [place] [address] Performed By: #### 2 4321-2, 85707-6, 2776-08, ####[facility] [id number] [facility] [address] [address] [place] Chloride [Moles/Vol] 99 mmol/L Normal 98-107 [facility] Comment on above: Order Comment: Speci men Type: BLOOD SPECIMENOrdering Facility: [facility] Address: [address] [place] [address] Performed By: #### 2 4321-2, 72979-4, 2776-08, ####[facility] [id number] [facility] [address] [address] [place] CO2 [Moles/Vol] 17 mmol/L Low 22-30 [facility] Comment on above: Order Comment: Speci men Type: BLOOD SPECIMENOrdering Facility: [facility] Address: [address] [place] [address] Performed By: #### 2 4321-2, 64007-6, 2776-08, ####[facility] LABCLIA [id number] [facility] [address] [place] [address] [place] Creatinine [Mass/Vol] 0.89 mg/dL Normal 0.73-1.22 [facility] Comment on above: Order Comment: Ezekiel ramirez Type: BLOOD SPECIMENOrdering Facility: [facility] Address: [address] [id number] Performed By: #### 2 4321-2, 19144-3, 2777-, ####[facility] LABCLIA [id number] [address] [address] [place] Creatinine and Glomerular filtration rate.predicted panel (S/P/Bld) 99 mL/min/1.73m??? Normal >=60 [facility] Comment on above: Order Comment: Ezekiel james Type: BLOOD SPECIMENOrdering Facility: [facility] Address: [address] [place] [address] Result Comment: Patric mated Glomerular Filtration Rate [...] actual GFR. Performed By: #### 2 4321-2, 74390-1, 2777-, ####[facility] LABCLIA [id number] [address] [address] [place] Glucose [Mass/Vol] 250 mg/dL High 74-99 [facility] Comment on above: Order Comment: Ezekiel ramirez Type: BLOOD SPECIMENOrdering Facility: [facility] Address: [address] [id number] Result Comment: The [place] Diabetes Association (ADA) provides guidance for cutoff [...] Standards of Medical Care in Diabetes 2016, [place] [employer]. Diabetes Care. 2016.39(Suppl 1). Performed By: #### 2 4321-2, 46417-7, 2776-08, ####[facility] LABCLIA [id number] [address] [address] [place] Potassium [Moles/Vol] 3.6 mmol/L Low 3.7-5.1 [facility] Comment on above: Order Comment: Speci men Type: BLOOD SPECIMENOrdering Facility: [facility] Address: [address] [place] [address] Performed By: #### 2 4321-2, 09195-0, 2776-08, ####[facility] [id number] [place] [id number] [place] Sodium [Moles/Vol] 127 mmol/L Low 136-144 [facility] Comment on above: Order Comment: Speci men Type: BLOOD SPECIMENOrdering Facility: [facility] Address: [address] [place] [address] Performed By: #### 2 4321-2, 40724-1, 2776-08, ####[facility] [id number] [place] [id number] [place] Urea nitrogen [Mass/Vol] 14 mg/dL Normal 9-24 [facility] Comment on above: Order Comment: Speci men Type: BLOOD SPECIMENOrdering Facility: [facility] Address: [address] [place], [place] [address] Performed By: #### 2 4321-2, 62151-3, 2776-08, ####[facility] [id number] [address] [address] [place] CBC W Auto Differential pane l (Bld)on 11-14-2024 Basophils (Bld) [#/Vol] 0.04 10*3/uL Normal <0.11 [facility] Comment on above: Order Comment: Speci men Type: BLOOD SPECIMENOrdering Facility: [facility] Address: [address] [place] [address] Performed By: #### 5 7021-8 ####[facility] LABCLIA [id number] [place] [address] [place] Basophils/100 WBC (Bld) 0.7 % Normal [facility] Comment on above: Order Comment: Speci men Type: BLOOD SPECIMENOrdering Facility: [facility] Address: [address] [place] [address] Performed By: #### 5 7021-8 ####[facility]CLIA [id number] [place] [address] [place] Differential cell count method Nom (Bld) Auto Normal [facility] Comment on above: Order Comment: Speci men Type: BLOOD SPECIMENOrdering Facility: [facility] Address: [address] [place] [address] Performed By: #### 5 7021-8 ####[facility]CLIA [id number] [place] [address] [place] Eosinophils (Bld) [#/Vol] 0.23 10*3/uL Normal <0.46 [facility] Comment on above: Order Comment: Speci men Type: BLOOD SPECIMENOrdering Facility: [facility] Address: [address] [place] [address] Performed By: #### 5 7021-8 ####[facility]CL[facility] [id number] [place] [address] [place] Eosinophils/100 WBC (Bld) 4.1 % Normal [facility] Comment on above: Order Comment: Speci men Type: BLOOD SPECIMENOrdering Facility: [facility] Address: [address] [place] [address] Performed By: #### 5 7021-8 ####[facility]CL[facility] [id number] [place] [address] [place] Erythrocyte distribution width (RBC) [Ratio] 16.3 % High 11.5-15.0 [facility] Comment on above: Order Comment: Speci men Type: BLOOD SPECIMENOrdering Facility: [facility] Address: [address] [place] [address] Performed By: #### 5 7021-8 ####[facility]CLIA [id number] [address], [place] [address] [place] Hematocrit (Bld) [Volume fraction] 22.7 % Low 39.0-51.0 [facility] Comment on above: Order Comment: Speci men Type: BLOOD SPECIMENOrdering Facility: [facility] Address: [address] [place] [address] Performed By: #### 5 7021-8 ####[facility] [id number] [place] [address] [place] Hemoglobin (Bld) [Mass/Vol] 7.9 g/dL Low 13.0-17.0 [facility] Comment on above: Order Comment: Speci men Type: BLOOD SPECIMENOrdering Facility: [facility] Address: [address] [place] [address] Performed By: #### 5 7021-8 ####[facility] [id number] [place] [address] [place] Immature granulocytes (Bld) [#/Vol] 0.04 10*3/uL Normal <0.10 [facility] Comment on above: Order Comment: Speci men Type: BLOOD SPECIMENOrdering Facility: [facility] Address: [address] [place] [address] Performed By: #### 5 7021-8 ####[facility] [id number] [place] [address] [place] Immature granulocytes/100 WBC (Bld) 0.7 % Normal [facility] Comment on above: Order Comment: Speci men Type: BLOOD SPECIMENOrdering Facility: [facility] Address: [address] [place] [address] Performed By: #### 5 7021-8 ####[facility]CLIA [id number] [place] [address] [place] Lymphocytes (Bld) [#/Vol] 0.72 10*3/uL Low 1.00-4.00 [facility] Comment on above: Order Comment: Speci men Type: BLOOD SPECIMENOrdering Facility: [facility] Address: [address] [place] [address] Performed By: #### 5 7021-8 ####[facility]CLIA [id number] [place] [address] [place] Lymphocytes/100 WBC (Bld) 12.8 % Normal [facility] Comment on above: Order Comment: Speci men Type: BLOOD SPECIMENOrdering Facility: [facility] Address: [address] [place] [address] Performed By: #### 5 7021-8 ####[facility]CLIA [id number] [place] [address] [place] MCH (RBC) [Entitic mass] 31.7 pg Normal 26.0-34.0 [facility] Comment on above: Order Comment: Speci men Type: BLOOD SPECIMENOrdering Facility: [facility] Address: [address] [place] [address] Performed By: #### 5 7021-8 ####[facility]CLIA [id number] [place] [address] [place] MCHC (RBC) [Mass/Vol] 34.8 g/dL Normal 30.5-36.0 [facility] Comment on above: Order Comment: Speci men Type: BLOOD SPECIMENOrdering Facility: [facility] Address: [address] [place] [address] Performed By: #### 5 7021-8 ####[facility]CLIA [id number] [place] [address] [place] MCV (RBC) [Entitic vol] 91.2 fL Normal 80.0-100.0 [facility] Comment on above: Order Comment: Speci men Type: BLOOD SPECIMENOrdering Facility: [facility] Address: [address] [place] [address] Performed By: #### 5 7021-8 ####[facility]CLIA [id number] [address], [place] [address] [place] Monocytes (Bld) [#/Vol] 0.68 10*3/uL Normal <0.87 [facility] Comment on above: Order Comment: Speci men Type: BLOOD SPECIMENOrdering Facility: [facility] Address: [address] [place] [address] Performed By: #### 5 7021-8 ####[facility]CLIA [id number] [place] [address] [place] Monocytes/100 WBC (Bld) 12.1 % Normal [facility] Comment on above: Order Comment: Speci men Type: BLOOD SPECIMENOrdering Facility: [facility] Address: [address] [place] [address] Performed By: #### 5 7021-8 ####[facility]CLIA [id number] [place] [id number] [place] Neutrophils (Bld) [#/Vol] 3.92 10*3/uL Normal 1.45-7.50 [facility] Comment on above: Order Comment: Speci men Type: BLOOD SPECIMENOrdering Facility: [facility] Address: [address] [place] [address] Performed By: #### 5 7021-8 ####[facility]CLIA [id number] [place] [id number] [place] Neutrophils/100 WBC (Bld) 69.6 % Normal [facility] Comment on above: Order Comment: Speci men Type: BLOOD SPECIMENOrdering Facility: [facility] Address: [address] [place] [address] Performed By: #### 5 7021-8 ####[facility]CLIA [id number] [place] [address] [place] Nucleated RBC (Bld) [#/Vol] 10*3/uL Normal <0.01 [facility] Comment on above: Order Comment: Speci men Type: BLOOD SPECIMENOrdering Facility: [facility] Address: [address] [place] [address] Performed By: #### 5 7021-8 ####[facility]CLIA [id number] [place] [address] [place] Nucleated RBC/100 WBC (Bld) [Ratio] 0.0 /100 WBC Normal [facility] Comment on above: Order Comment: Speci men Type: BLOOD SPECIMENOrdering Facility: [facility] Address: [address] [place] [address] Performed By: #### 5 7021-8 ####[facility]CLIA [id number] [place] [address] [place] Platelet mean volume (Bld) [Entitic vol] 12.1 fL Normal 9.0-12.7 [facility] Comment on above: Order Comment: Speci men Type: BLOOD SPECIMENOrdering Facility: [facility] Address: [address] [place] [address] Performed By: #### 5 7021-8 ####[facility]CLIA [id number] [place] [address] [place] Platelets (Bld) [#/Vol] 43 10*3/uL Low 150-400 [facility] Comment on above: Order Comment: Speci men Type: BLOOD SPECIMENOrdering Facility: [facility] Address: [address] [place] [address] Result Comment: Resu lts checked and verified.No clot detected. Performed By: #### 5 7021-8 ####[facility] [id number] [place] [address] [place] RBC (Bld) [#/Vol] 2.49 10*6/uL Low 4.20-6.00 [facility] Comment on above: Order Comment: Speci men Type: BLOOD SPECIMENOrdering Facility: [facility] Address: [address] [place] [address] Performed By: #### 5 7021-8 ####[facility] [id number] [place] [address] [place] WBC (Bld) [#/Vol] 5.63 10*3/uL Normal 3.70-11.00 [facility] Comment on above: Order Comment: Speci men Type: BLOOD SPECIMENOrdering Facility: [facility] Address: [address] [place] [address] Performed By: #### 5 7021-8 ####[facility] [id number] [place] [address] [place] Fibrinogen PPP-mCncon 2024 Fibrinogen Coag (PPP) [Mass/Vol] 119 mg/dL Low 200-400 [facility] Comment on above: Order Comment: Speci men Type: BLOOD SPECIMENOrdering Facility: [facility] Address: [address] [place] [address] Performed By: #### 3 255-7, 01898-9 ####[facility] [id number] [place] [address] [place] Hepatic function 2000 panelo n 11-14-2024 Albumin [Mass/Vol] 2.8 g/dL Low 3.9-4.9 [facility] Comment on above: Order Comment: Speci men Type: BLOOD SPECIMENOrdering Facility: [facility] Address: [address] [place], [place] [address] Performed By: #### 2 4321-2, 17420-3, 2776-08, ####[facility] LABCLIA [id number] [address] [address] [place] ALP [Catalytic activity/Vol] 248 U/L High 38-113 [facility] Comment on above: Order Comment: Speci men Type: BLOOD SPECIMENOrdering Facility: [facility] Address: [address] [place], [place] [address] Performed By: #### 2 4321-2, 64277-2, 2776-, ####[facility]CLIA [id number] [place] [address] [place] ALT [Catalytic activity/Vol] 29 U/L Normal 10-54 [facility] Comment on above: Order Comment: Speci men Type: BLOOD SPECIMENOrdering Facility: [facility] Address: [address] [place] [address] Performed By: #### 2 4321-2, 24218-5, 2776-08, ####[facility] [id number] [place] [address] [place] AST [Catalytic activity/Vol] 62 U/L High 14-40 [facility] Comment on above: Order Comment: Speci men Type: BLOOD SPECIMENOrdering Facility: [facility] Address: [address] [place], [place] [id number] Performed By: #### 2 4321-2, 91401-2, 2776-08, ####[facility]IA [id number] [place] [id number] [place] Bilirubin [Mass/Vol] 1.7 mg/dL High 0.2-1.3 [facility] Center Comment on above: Order Comment: Speci men Type: BLOOD SPECIMENOrdering Facility: [facility] Address: [address] [place], [place] [address] Performed By: #### 2 4321-2, 86824-3, 2776-08, ####[facility] LABCLIA [id number] [address] [address] [place] Bilirubin.conjugated [Mass/Vol] 1.0 mg/dL High <0.3 [facility] Comment on above: Order Comment: Speci men Type: BLOOD SPECIMENOrdering Facility: [facility] Address: [address] [place], [place] [address] Performed By: #### 2 4321-2, 60698-5, 2776-08, ####[facility] LABIA [id number] [place] [id number] [place] Protein [Mass/Vol] 5.4 g/dL Low 6.3-8.0 [facility] Comment on above: Order Comment: Speci men Type: BLOOD SPECIMENOrdering Facility: [facility] Address: [address] [place] [address] Performed By: #### 2 4321-2, 20062-2, 2776-08, ####[facility] LABIA [id number] [place] [id number] [place] Magnesium SerPl-mCncon 11-14 Magnesium [Mass/Vol] 1.6 mg/dL Low 1.7-2.3 [facility] Comment on above: Order Comment: Speci men Type: BLOOD SPECIMENOrdering Facility: [facility] Address: [address] [place], [place] [address] Performed By: #### 2 4321-2, 35161-1, 2776-08, ####[facility] LABCLIA [id number] [address] [address] [place] PT panel Coag (PPP)on 2024 INR Coag (PPP) [Relative time] 1.8 {INR} High 0.9-1.3 [facility] Comment on above: Order Comment: Ezekiel ramirez Type: BLOOD SPECIMENOrdering Facility: [facility] Address: [address] [place] [address] Result Comment: Sarah min K Antagonist (VKA) Therapeutic Range: INR 2 to 3 (Target INR of 2.5)Note: For patients treated with VKA drugs, such as warfarin, the [employer] 2012 Guideline recommends [...] al. Chest 2012, 141:7S-47SNishbethel RA, et al. [facility] 2017, 70: 252-289 Performed By: #### 3 255-7, 56627-4 ####[facility] [id number] [place] [address] [place] PT Coag (PPP) [Time] 19.2 s High 9.7-13.0 [facility] Comment on above: Order Comment: Ezekiel ramirez Type: BLOOD SPECIMENOrdering Facility: [facility] Address: [address] [place] [address] Performed By: #### 3 255-7, 69917-8 ####[facility] [id number] [place] [id number] [place] Phosphate SerPl-mCncon 11-14 Phosphate [Mass/Vol] 1.9 mg/dL Low 2.7-4.8 [facility] Comment on above: Order Comment: Ezekiel ramirez Type: BLOOD SPECIMENOrdering Facility: [facility] Address: [address] [place] [address] Performed By: #### 2 4321-2, 29233-4, 2777-1, 11777-5 ####[facility] LABCLIA [id number] [place] [address] [place] URINALYSIS, REFLEX MICROSCOP ICon 11-14-2024 Bacteria LM.HPF (Urine sed) [#/Area] Negative Normal Negative [facility] Comment on above: Order Comment: Speci men Type: URINE SPECIMENOrdering Facility: [facility] Address: [address] [place] [address] Performed By: #### L [id number] ####[facility] LABIA [id number] [place] [address] [place] Bilirubin Ql (U) 1+ Abnormal Negative [facility] Comment on above: Order Comment: Speci men Type: URINE SPECIMENOrdering Facility: [facility] Address: [address] [place] [address] Result Comment: Sugg est correlation with clinical findings and serum bilirubin if clinically indicated. Performed By: #### L [id number] ####[facility] LABIA [id number] [place] [address] [place] Clarity (Unsp spec) Cloudy Abnormal Clear [facility] Comment on above: Order Comment: Speci men Type: URINE SPECIMENOrdering Facility: [facility] Address: [address] [place] [address] Performed By: #### L [id number] ####[facility] LABCLIA [id number] [place] [id number] [place] Color (U) [place] Abnormal Yellow [facility] Comment on above: Order Comment: Speci men Type: URINE SPECIMENOrdering Facility: [facility] Address: [address] [place] [address] Performed By: #### L [id number] ####[facility] LABCLIA [id number] [address] [place] Epithelial cells LM.HPF (Urine sed) [#/Area] None Seen Normal [facility] Comment on above: Order Comment: Speci men Type: URINE SPECIMENOrdering Facility: [facility] Address: [address] [place] [address] Performed By: #### L [id number] ####[facility] LABCLIA [id number] [address] [place] Glucose Test strip (U) [Mass/Vol] Negative Normal Negative [facility] Comment on above: Order Comment: Speci men Type: URINE SPECIMENOrdering Facility: [facility] Address: [address] [place] [address] Performed By: #### L [id number] ####[facility] LABCLIA [id number] [place] [address] [place] Hemoglobin Ql (U) 3+ Abnormal Negative [facility] Comment on above: Order Comment: Speci men Type: URINE SPECIMENOrdering Facility: [facility] Address: [address] [place] [address] Performed By: #### L [id number] ####[facility] LABCLIA [id number] [place] [address] [place] Hyaline casts (Urine sed) [#/Area] 0 /[LPF] Normal 0 /LPF [facility] Comment on above: Order Comment: Speci men Type: URINE SPECIMENOrdering Facility: [facility] Address: [address] [place] [address] Performed By: #### L [id number] ####[facility] LABCLIA [id number] [address] [place] Ketones Ql (U) Negative Normal Negative [facility] Comment on above: Order Comment: Speci men Type: URINE SPECIMENOrdering Facility: [facility] Address: [address] [place] [address] Performed By: #### L [id number] ####[facility] LABCLIA [id number] [place] [address] [place] Leukocyte esterase Test strip Ql (U) 3+ Abnormal Negative [facility] Comment on above: Order Comment: Speci men Type: URINE SPECIMENOrdering Facility: [facility] Address: [address] [place] [address] Performed By: #### L [id number] ####[facility] LABCLIA [id number] [place] [address] [place] Nitrite Ql (U) Negative Normal Negative [facility] Comment on above: Order Comment: Speci men Type: URINE SPECIMENOrdering Facility: [facility] Address: [address] [place] [address] Performed By: #### L [id number] ####[facility] LABIA [id number] [place] [address] [place] pH (U) 6.0 [pH] Normal <8.5 [facility] Comment on above: Order Comment: Speci men Type: URINE SPECIMENOrdering Facility: [facility] Address: [address] [place] [address] Performed By: #### L [id number] ####[facility] LABIA [id number] [place] [address] [place] Protein (U) [Mass/Vol] 2+ Abnormal Negative [facility] Comment on above: Order Comment: Speci men Type: URINE SPECIMENOrdering Facility: [facility] Address: [address] [place] [address] Performed By: #### L [id number] ####[facility] LABIA [id number] [place] [address] [place] RBC LM.HPF (Urine sed) [#/Area] /[HPF] Abnormal 0-2 /HPF [facility] Comment on above: Order Comment: Speci men Type: URINE SPECIMENOrdering Facility: [facility] Address: [address] [place] [address] Performed By: #### L [id number] ####[facility] LABIA [id number] [place] [address] [place] [facility] Specific gravity (U) [Rel density] 1.017 Normal 1.005-1.030 [facility] Comment on above: Order Comment: Speci men Type: URINE SPECIMENOrdering Facility: [facility] Address: [address] [place] [address] Performed By: #### L [id number] ####[facility] LABIA [id number] [place] [address] [place] Urobilinogen Ql (U) 0.2 EU/dL Normal 0.2-1.0 EU/dL [facility] Comment on above: Order Comment: Speci men Type: URINE SPECIMENOrdering Facility: [facility] Address: [address] [place] [address] Performed By: #### L [id number] ####[facility] LABIA [id number] [place] [address] [place] WBC LM.HPF (Urine sed) [#/Area] /[HPF] Abnormal 0-5 /HPF [facility] Comment on above: Order Comment: Speci men Type: URINE SPECIMENOrdering Facility: [facility] Address: [address] [place] [address] Performed By: #### L [id number] ####[facility] LABIA [id number] [place] [address] [place] Yeast.budding LM.HPF (Urine sed) [#/Area] Present Abnormal None Seen [facility] Comment on above: Order Comment: Speci men Type: URINE SPECIMENOrdering Facility: [facility] Address: [address] [place] [address] Performed By: #### L [id number] ####[facility] LABIA [id number] [place] [address] [place] 25(OH)D3 [facility]-ncon 2024 25-hydroxyvitamin D3 [Mass/Vol] 16.2 ng/mL Low 31.0-80.0 [facility] Comment on above: Order Comment: Speci men Type: BLOOD SPECIMENOrdering Facility: [facility] Address: [address] [place] [address] Performed By: #### 7 852-7, MEASLG, VZVG2, 1988- ####[facility] LABNORT[facility] [id number] [place] [address] [place] A-Tocopherol Vit E [facility]-n con 11-13-2024 Alpha tocopherol [Mass/Vol] 3.3 mg/L Low 6.0-23.0 [facility] Comment on above: Order Comment: Speci men Type: BLOOD SPECIMENOrdering Facility: [facility] Address: [address] [place] [address] Performed By: #### 2 923-1, 1823-4 ####[facility] [id number] [place] [address] [place] ALPHA-1 ANTITRYPSIN GENOon 0 11-13-2024 HA1AT REVIEWED BY Michelle [facility] Comment on above: Order Comment: Speci men Type: BLOOD SPECIMENOrdering Facility: [facility] Address: [address] [place] [address] Result Comment: Alph a-1 Antitrypsin GenotypingLaboratory Accession Number: [id number]:No Variant Detected in SERPINA1 (PI*MM)Interpretation:DNA testing indicates [...] the two mostcommon pathogenic variants: S (c.863A>T, p.Ahv695Kvo, g.25513249), Z(c.1096G>A, p.Knn172Che, g.50916758), and the rarer variants: F(c.739C>T, p.Epn669Esg, g.53483762), I (c.187C>T, p.Ing01Aiv,g.86650516).Limitations:This Laboratory Developed Test (LDT) is designed to [...] was developed and its performance characteristics determinedby [facility]'s [facility]. Ithas not been cleared or approved by the FDA. [facility] is regulated under CLIAas certified to perform high-complexity testing. This test is used forclinical purposes. It should not be regarded as investigational or forresearch.Test performed at [facility], [address] [place], [place]. CLIA Number: [id number]:1) Kait HIRSCH, Samir G, Essence ML, Ilan [...] Salvador SJ, Nicole. Molecular characterisation of three brlii-2-nfdxxwzepth deficiencyvariants: proteinase inhibitor (Pi) nullcardiff (Blk399----Gsk);PiMmalton (Kpi54----kjpwpowh) and PiI (Nrd69----[place]). Hum Trisha. 1988Dec;84(1):55-8.4) Flor WHITFIELD and Kait HIRSCH. Clinical practice.Alpha1-antitrypsin deficiency. N Engl J Med. 2008;360(00)9593-06.5) Margot BETANCOURT, Kwame F, Prakash HIRSCH. The significance of the F variantof ssvuu-0-uraeekkgpcj and unique case report of a PiFF homozygote.[facility] Pulm Med. 2014 Mar 10;14:132.6) Ivania MARIE, Elena SHETTY, and Jaziel Carlson. Alpha-1 AntitrypsinDeficiency. 2005May 30 [Updated 2017 August 22]. In: Juanito HIRSCH, Barbara, Nemesio TO, et al., editors. GeneReviews [Internet]. [place] ([place]):[facility]; 6982-0133. Available from:http://www.ncbi.nlm.nih.gov/books/QCF6312/Interpretation performed at remote location (R0A1) by Fifi España MD Performed By: #### H A1AT ####[facility] LIMSCLIA [id number] [place] [address] [place] ANES POSTPROC EVALon 025 ANES POSTPROC EVAL Normal [facility] ANES PRE-OPon 11-13-2024 ANES PRE-OP Normal [facility] Alpha tocopherol [Mass/Vol]o n 11-13-2024 Beta+gamma tocopherol [Mass/Vol] 0.6 mg/L Normal 0.3-3.2 [facility] Comment on above: Order Comment: Speci men Type: BLOOD SPECIMENOrdering Facility: [facility] Address: [address] [place] [address] Result Comment: This test was developed, and its performance characteristics determined by the [facility] Department of Pathology and Laboratory Medicine. It has not been cleared or approved by the FDA. The [facility] Department of Pathology and Laboratory Medicine is regulated under CLIA as qualified to perform high-complexity testing. This test is used for clinical purposes. It should not be regarded as investigational or for research. Performed By: #### 2 923-1, 1823-4 ####[facility] LABCLIA [id number] [place] [address] [place] Basic metabolic 2000 panelon 11-13-2024 Anion gap [Moles/Vol] 9 mmol/L Normal 8-15 [facility] Comment on above: Order Comment: Speci men Type: BLOOD SPECIMENOrdering Facility: [facility] Address: [address] [place] [address] Performed By: #### 2 4321-2, 91643-2, 74332-8, 39814-8 ####[facility] LABCLIA [id number] [place] [address] [place] Calcium [Mass/Vol] 9.1 mg/dL Normal 8.5-10.2 [facility] Comment on above: Order Comment: Speci men Type: BLOOD SPECIMENOrdering Facility: [facility] Address: [address] [place] [address] Performed By: #### 2 4321-2, 58864-7, 37132-7, 68246-7 ####[facility] LABCLIA [id number] [place] [address] [place] Chloride [Moles/Vol] 99 mmol/L Normal 98-107 [facility] Comment on above: Order Comment: Speci men Type: BLOOD SPECIMENOrdering Facility: [facility] Address: [address] [place] [address] Performed By: #### 2 4321-2, 32921-1, 48031-9, 50213-4 ####[facility] LABCLIA [id number] [place] [address] [place] CO2 [Moles/Vol] 16 mmol/L Low 22-30 [facility] Comment on above: Order Comment: Speci men Type: BLOOD SPECIMENOrdering Facility: [facility] Address: [address] [place] [address] Performed By: #### 2 4321-2, 52787-2, 55155-4, 61142-4 ####[facility] LABCLIA [id number] [place] [address] [place] Creatinine [Mass/Vol] 1.10 mg/dL Normal 0.73-1.22 [facility] Comment on above: Order Comment: Speci men Type: BLOOD SPECIMENOrdering Facility: [facility] Address: [address] [place] [address] Performed By: #### 2 4321-2, 32815-7, 15518-6, 36402-9 ####[facility] LABCLIA [id number] [place] [address] [place] Creatinine and Glomerular filtration rate.predicted panel (S/P/Bld) 78 mL/min/1.73m??? Normal >=60 [facility] Comment on above: Order Comment: Ezekiel ramirez Type: BLOOD SPECIMENOrdering Facility: [facility] Address: [address] [place] [address] Result Comment: Patric mated Glomerular Filtration Rate [...] actual GFR. Performed By: #### 2 4321-2, 80985-9, 64680-2, 47117-7 ####[facility] LABCLIA [id number] [place] [address] [place] Glucose [Mass/Vol] 278 mg/dL High 74-99 [facility] Comment on above: Order Comment: Ezekiel ramirez Type: BLOOD SPECIMENOrdering Facility: [facility] Address: [address] [place] [address] Result Comment: The [place] Diabetes [employer] (ADA) provides guidance for cutoff [...] Standards of Medical Care in Diabetes 2016, [place] [employer]. Diabetes Care. 2016.39(Suppl 1). Performed By: #### 2 4321-2, 37701-9, 25718-8, 07248-3 ####[facility] LABCLIA [id number] [place] [id number] [place] Potassium [Moles/Vol] 4.1 mmol/L Normal 3.7-5.1 [facility] Comment on above: Order Comment: Speci men Type: BLOOD SPECIMENOrdering Facility: [facility] Address: [address] [place] [address] Performed By: #### 2 4321-2, 18210-7, 75701-2, 57822-9 ####[facility] LABCLIA [id number] [place] [address] [place] Sodium [Moles/Vol] 124 mmol/L Low 136-144 [facility] Comment on above: Order Comment: Speci men Type: BLOOD SPECIMENOrdering Facility: [facility] Address: [address] [place] [address] Performed By: #### 2 4321-2, 87805-3, 78225-4, 42567-0 ####[facility] LABCLIA [id number] [place] [address] [place] Urea nitrogen [Mass/Vol] 20 mg/dL Normal 9-24 [facility] Comment on above: Order Comment: Speci men Type: BLOOD SPECIMENOrdering Facility: [facility] Address: [address] [place] [address] Performed By: #### 2 4321-2, 71074-9, 88702-9, 97237-8 ####[facility] LABCLIA [id number] [place] [address] [place] CBC W Auto Differential pane l (Bld)on 11-13-2024 Basophils (Bld) [#/Vol] 10*3/uL Normal <0.11 [facility] Comment on above: Order Comment: Speci men Type: BLOOD SPECIMENOrdering Facility: [facility] Address: [address] [place] [address] Performed By: #### 5 7021-8 ####[facility] LABIA [id number] [place] [address] [place] Basophils/100 WBC (Bld) 0.4 % Normal [facility] Comment on above: Order Comment: Speci men Type: BLOOD SPECIMENOrdering Facility: [facility] Address: [address] [place] [address] Performed By: #### 5 7021-8 ####[facility] LABCLIA [id number] [place] [address] [place] Differential cell count method Nom (Bld) Auto Normal [facility] Comment on above: Order Comment: Speci men Type: BLOOD SPECIMENOrdering Facility: [facility] Address: [address] [place] [address] Performed By: #### 5 7021-8 ####[facility] LABCLIA [id number] [place] [address] [place] Eosinophils (Bld) [#/Vol] 0.18 10*3/uL Normal <0.46 [facility] Comment on above: Order Comment: Speci men Type: BLOOD SPECIMENOrdering Facility: [facility] Address: [address] [place] [address] Performed By: #### 5 7021-8 ####[facility] LABCLIA [id number] [place] [address] [place] Eosinophils/100 WBC (Bld) 3.3 % Normal [facility] Comment on above: Order Comment: Speci men Type: BLOOD SPECIMENOrdering Facility: [facility] Address: [address] [place] [address] Performed By: #### 5 7021-8 ####[facility] LABCLIA [id number] [place] [address] [place] Erythrocyte distribution width (RBC) [Ratio] 17.0 % High 11.5-15.0 [facility] Comment on above: Order Comment: Speci men Type: BLOOD SPECIMENOrdering Facility: [facility] Address: [address] [place] [address] Performed By: #### 5 7021-8 ####[facility] LABCLIA [id number] [place] [address] [place] Hematocrit (Bld) [Volume fraction] 21.6 % Low 39.0-51.0 [facility] Comment on above: Order Comment: Speci men Type: BLOOD SPECIMENOrdering Facility: [facility] Address: [address] [place] [address] Performed By: #### 5 7021-8 ####[facility] LABIA [id number] [place] [address] [place] Hemoglobin (Bld) [Mass/Vol] 7.4 g/dL Low 13.0-17.0 [facility] Comment on above: Order Comment: Speci men Type: BLOOD SPECIMENOrdering Facility: [facility] Address: [address] [place] [address] Performed By: #### 5 7021-8 ####[facility] LABIA [id number] [place] [address] [place] Immature granulocytes (Bld) [#/Vol] 0.04 10*3/uL Normal <0.10 [facility] Comment on above: Order Comment: Speci men Type: BLOOD SPECIMENOrdering Facility: [facility] Address: [address] [place] [address] Performed By: #### 5 7021-8 ####[facility] LABIA [id number] [place] [address] [place] Immature granulocytes/100 WBC (Bld) 0.7 % Normal [facility] Comment on above: Order Comment: Speci men Type: BLOOD SPECIMENOrdering Facility: [facility] Address: [address] [place] [address] Performed By: #### 5 7021-8 ####[facility] LABIA [id number] [place] [address] [place] Lymphocytes (Bld) [#/Vol] 0.64 10*3/uL Low 1.00-4.00 [facility] Comment on above: Order Comment: Speci men Type: BLOOD SPECIMENOrdering Facility: [facility] Address: [address] [place] [address] Performed By: #### 5 7021-8 ####[facility] LABIA [id number] [place] [address] [place] Lymphocytes/100 WBC (Bld) 11.6 % Normal [facility] Comment on above: Order Comment: Speci men Type: BLOOD SPECIMENOrdering Facility: [facility] Address: [address] [place] [address] Performed By: #### 5 7021-8 ####[facility] LABIA [id number] [place] [address] [place] MCH (RBC) [Entitic mass] 31.8 pg Normal 26.0-34.0 [facility] Comment on above: Order Comment: Speci men Type: BLOOD SPECIMENOrdering Facility: [facility] Address: [address] [place] [address] Performed By: #### 5 7021-8 ####[facility] LABIA [id number] [place] [address] [place] MCHC (RBC) [Mass/Vol] 34.3 g/dL Normal 30.5-36.0 [facility] Comment on above: Order Comment: Speci men Type: BLOOD SPECIMENOrdering Facility: [facility] Address: [address] [place] [address] Performed By: #### 5 7021-8 ####[facility] LABIA [id number] [place] [address] [place] MCV (RBC) [Entitic vol] 92.7 fL Normal 80.0-100.0 [facility] Comment on above: Order Comment: Speci men Type: BLOOD SPECIMENOrdering Facility: [facility] Address: [address] [place] [address] Performed By: #### 5 7021-8 ####[facility] LABCLIA [id number] [address] [address] [place] Monocytes (Bld) [#/Vol] 0.68 10*3/uL Normal <0.87 [facility] Comment on above: Order Comment: Speci men Type: BLOOD SPECIMENOrdering Facility: [facility] Address: [address] [place] [address] Performed By: #### 5 7021-8 ####[facility] LABCLIA [id number] [place] [address] [place] Monocytes/100 WBC (Bld) 12.4 % Normal [facility] Comment on above: Order Comment: Speci men Type: BLOOD SPECIMENOrdering Facility: [facility] Address: [address] [place] [address] Performed By: #### 5 7021-8 ####[facility] LABCLIA [id number] [place] [id number] [place] Neutrophils (Bld) [#/Vol] 3.94 10*3/uL Normal 1.45-7.50 [facility] Comment on above: Order Comment: Speci men Type: BLOOD SPECIMENOrdering Facility: [facility] Address: [address] [place] [address] Performed By: #### 5 7021-8 ####[facility] LABCLIA [id number] [place] [id number] [place] Neutrophils/100 WBC (Bld) 71.6 % Normal [facility] Comment on above: Order Comment: Speci men Type: BLOOD SPECIMENOrdering Facility: [facility] Address: [address] [place] [address] Performed By: #### 5 7021-8 ####[facility] LABCLIA [id number] [place] [id number] [place] Nucleated RBC (Bld) [#/Vol] 10*3/uL Normal <0.01 [facility] Comment on above: Order Comment: Speci men Type: BLOOD SPECIMENOrdering Facility: [facility] Address: [address] [place] [address] Performed By: #### 5 7021-8 ####[facility] LABCLIA [id number] [place] [address] [place] Nucleated RBC/100 WBC (Bld) [Ratio] 0.0 /100 WBC Normal [facility] Comment on above: Order Comment: Speci men Type: BLOOD SPECIMENOrdering Facility: [facility] Address: [address] [place] [address] Performed By: #### 5 7021-8 ####[facility] LABCLIA [id number] [place] [address] [place] Platelet mean volume (Bld) [Entitic vol] 11.7 fL Normal 9.0-12.7 [facility] Comment on above: Order Comment: Speci men Type: BLOOD SPECIMENOrdering Facility: [facility] Address: [address] [place] [address] Performed By: #### 5 7021-8 ####[facility] LABIA [id number] [place] [address] [place] Platelets (Bld) [#/Vol] 38 10*3/uL Low 150-400 [facility] Comment on above: Order Comment: Speci men Type: BLOOD SPECIMENOrdering Facility: [facility] Address: [address] [place] [address] Result Comment: Resu lts checked and verified.No clot detected. Performed By: #### 5 7021-8 ####[facility] LABCLIA [id number] [place] [address] [place] RBC (Bld) [#/Vol] 2.33 10*6/uL Low 4.20-6.00 [facility] Comment on above: Order Comment: Speci men Type: BLOOD SPECIMENOrdering Facility: [facility] Address: [address] [place] [address] Performed By: #### 5 7021-8 ####[facility] LABCLIA [id number] [place] [address] [place] WBC (Bld) [#/Vol] 5.50 10*3/uL Normal 3.70-11.00 [facility] Comment on above: Order Comment: Speci men Type: BLOOD SPECIMENOrdering Facility: [facility] Address: [address] [place] [address] Performed By: #### 5 7021-8 ####[facility] LABCLIA [id number] [place] [address] [place] CMV IgG Qnon 11-13-2024 CMV IGG QUAL Negative Normal Negative [facility] Comment on above: Order Comment: Speci men Type: BLOOD SPECIMENOrdering Facility: [facility] Address: [address] [place] [address] Result Comment: No s erological evidence of past exposure to Cytomegalovirus. Cannot exclude recent infection if the specimen collected within 4-6 weeks after infection. Performed By: #### 7 852-7, MEASLG, VZVG2, 1988-10 ####[facility] LABCLIA [id number] [place] [address] [place] CMV IgG SerPl-aCncon 025 CMV IgG Qn 0.37 U/mL Normal [facility] Comment on above: Order Comment: Speci [facility] Type: BLOOD SPECIMENOrdering Facility: [facility] Address: [address] [place] [address] Result Comment: The magnitude of the measured result is not indicative of the amount of antibody present.U/mL values are interpreted as follows:Negative <0.6Equivocal 0.6 to <0.70Positive >=0.70 Performed By: #### 7 852-7, MEASLG, VZVG2, 1988-10 ####[facility] LABIA [id number] [place] [id number] [place] CONSULT PROGon 11-13-2024 CONSULT PROG Normal [facility] CYTOLOGY NON-GYNon 5 AP DISCLAIMER Normal [facility] Comment on above: Order Comment: Speci men Type: FLUID SPECIMENOrdering Facility: [facility] Address: [address] [place] [address] Result Comment: Shellie pugh Developed Test (LDT) Disclaimer:Performance characteristics of immunohistochemical, immunofluorescent, and chromogenic in-situ hybridization tests have been determined by the performing laboratory within [facility]ology [facility] Medicine Department ([facility], [facility], [facility], [facility], [facility], [facility], or [facility]) in a manner consistent with [...] stain appropriately. Performed By: #### C YTONON ####[facility] LABIA [id number] [place] [address] [place] CASE REPORT Normal [facility] Comment on above: Order Comment: Speci men Type: FLUID SPECIMENOrdering Facility: [facility] Address: [address] [place] [address] Result Comment: [facility] Cytology Report Case: [id number] Provider: Deb Fox MD Collected: 11/13/2024 02:46 PMOrdering Location: [place] [address] Received: 11/15/2024 05:01 AMPathologist: Foster Newton MDSpecimen: Urine, Midstream Performed By: #### C YTONON ####[facility] LABIA [id number] [place] [id number] [place] CLINICAL HISTORY Staghorn calculi, s/ p L sided stenting with hematuria Normal [facility] Comment on above: Order Comment: Speci men Type: FLUID SPECIMENOrdering Facility: [facility] Address: [address] [place] [address] Performed By: #### C YTONON ####[facility] LABCLIA [id number] [address] [address] [place] DIAGNOSIS COMMENT Normal [facility] Comment on above: Order Comment: Speci men Type: FLUID SPECIMENOrdering Facility: [facility] Address: [address] [place] [address] Result Comment: A. F ungal yeast forms are seen, morphologically consistent with Mary species. Clinical correlation is suggested. Performed By: #### C YTONON ####[facility] LABCLIA [id number] [place] [address] [place] FINAL DIAGNOSIS Normal [facility] Comment on above: Order Comment: Speci men Type: FLUID SPECIMENOrdering Facility: [facility] Address: [address] [place] [address] Result Comment: A - Urine, Voided: Negative for high-grade urothelial carcinoma. Abundant acute inflammation (see comment). at 1141 EDT Performed By: #### C YTONON ####[facility] LABCLIA [id number] [place] [address] [place] FINAL PERFORMING LAB Normal [facility] Comment on above: Order Comment: Speci men Type: FLUID SPECIMENOrdering Facility: [facility] Address: [address] [place] [address] Result Comment: Tech nical component, farm adviser screening performed at: [facility], [address] [place], [place] [address] CLIA: [id number] interpretation performed at: [facility], [address] [place], [place] [address] CLIA# [id number] Director: Titi Voss MD Performed By: #### C YTONON ####[facility] LABCLIA [id number] [place] [address] [place] GROSS DESCRIPTION Normal [facility] Comment on above: Order Comment: Speci men Type: FLUID SPECIMENOrdering Facility: [facility] Address: [address] [place] [address] Result Comment: A. U rine, Szfeazwma42 cc cloudy lexis fluid . ThinPrep prepared. Performed By: #### C YTONON ####[facility] LABIA [id number] [place] [address] [place] EBV capsid IgG Qn (S)on 11-02 EBV VCA IGG, QUAL Positive Abnormal Negative [facility] Comment on above: Order Comment: Speci men Type: BLOOD SPECIMENOrdering Facility: [facility] Address: [address] [place] [address] Result Comment: The result suggests recent or past EBV infection. The final interpretation should be done in the context of other EBV serology panel results. Performed By: #### 8 039-0, 7885-7 ####[facility] LABCLIA [id number] [place] [address] [place] Fibrinogen PPP-mCncon 2024 Fibrinogen Coag (PPP) [Mass/Vol] 94 mg/dL Low 200-400 [facility] Comment on above: Order Comment: Speci [facility] Type: BLOOD SPECIMENOrdering Facility: [facility] Address: [address] [place] [address] Result Comment: Samp le checked for clot. Performed By: #### 3 4528-0, 3255-7 ####[facility] LABCLIA [id number] [place] [address] [place] HBV core Ab Ser Qlon 025 HBV core Ab Ql (S) Negative Normal Negative [facility] Comment on above: Order Comment: Speci men Type: BLOOD SPECIMENOrdering Facility: [facility] Address: [address] [place] [address] Result Comment: No e vidence of current or past infection with Hepatitis B virus. Should recent infection be suspected, repeat testing may be considered 3-4 weeks after this draw. Performed By: #### 3 1201-7, 74870-1, JEREMYVG, 5194-3, 84724-8 ####[facility] LABCLIA [id number] [place] [address] [place] HBV surface Ab Ql (S)on 11-02 HBV surface Ab Qn (S) <8.00 Normal [facility] Comment on above: Order Comment: Speci men Type: BLOOD SPECIMENOrdering Facility: [facility] Address: [address] [place] [address] Result Comment: <8 m IU/mL: No serological evidence of immunity to Hepatitis B Virus.>/= 8 to <12 mIU/mL: No serological evidence of immunity to Hepatitis B Virus.>/= 12 mIU/mL: Consistent with serological evidence of immunity to Hepatitis B Virus. Performed By: #### 3 1201-7, 96631-3, JEREMYVLoki, 5194-3, 23444-4 ####[facility] LABCLIA [id number] [place] [address] [place] HBV surface Ab Ser Qlon 11-02 HBV surface Ab Ql (S) Negative Normal [facility] Comment on above: Order Comment: Speci men Type: BLOOD SPECIMENOrdering Facility: [facility] Address: [address] [place] [address] Result Comment: No s erological evidence of immunity to Hepatitis B Virus. Performed By: #### 3 1201-7, 67726-8, AHAVG, 5194-3, 54152-4 ####[facility] LABCLIA [id number] [place] [id number] [place] HBV surface Ag Ser Qlon 11-02 HBV surface Ag Ql (S) Negative Normal Negative [facility] Comment on above: Order Comment: Speci men Type: BLOOD SPECIMENOrdering Facility: [facility] Address: [address] [place] [address] Performed By: #### 3 1201-7, 40648-4, AHAVG, 5195-3, 23350-4 ####[facility] LABCLIA [id number] [place] [address] [place] HCV Ab Ser Qlon 11-13-2024 HCV Ab Ql (S) Negative Normal Negative [facility] Comment on above: Order Comment: Speci men Type: BLOOD SPECIMENOrdering Facility: [facility] Address: [address] [place] [address] Result Comment: The result suggests no evidence of infection with Hepatitis C virus. Should recent infection be suspected, repeat testing may be considered 4-6 weeks after this draw. Performed By: #### 1 6128-1 ####[facility] LABCLIA [id number] [place] [address] [place] HEPATITIS A ANTIBODY, IGGon 11-13-2024 HAV IgG Ql (S) Negative Normal [facility] Comment on above: Order Comment: Speci men Type: BLOOD SPECIMENOrdering Facility: [facility] Address: [address] [place] [address] Result Comment: No s erological evidence of past exposure to hepatitis A virus or hepatitis A vaccination. Should recent infection be suspected, repeat testing is suggested 3-4 weeks after this draw. Performed By: #### 3 1201-7, 35746-7, AHAVG, 5-3, 38338-7 ####[facility] LABCLIA [id number] [place] [id number] [place] Performed By: #### 7 3752-8, AHAVG, STRSER, MUMPSG ####[facility] LABCLIA [id number] [place] [id number] [place] HIV 1+2 Ab IA Qlon 5 HIV 1 and 2 Ab IA.rapid Nom (S/P/Bld) Normal [facility] Comment on above: Order Comment: Speci men Type: BLOOD SPECIMENOrdering Facility: [facility] Address: [address] [place] [address] Result Comment: Test not indicated. Performed By: #### 3 1201-7, 30443-1, AHAVG, 5194-3, 25674-0 ####[facility] LABIA [id number] [place] [address] [place] HIV 1+2 Ab+HIV1 p24 Ag IA Ql Non-Reactive Normal Nonreactive [facility] Comment on above: Order Comment: Speci men Type: BLOOD SPECIMENOrdering Facility: [facility] Address: [address] [place] [address] Performed By: #### 3 1201-7, 07176-7, AHAVG, 5194-3, 32183-5 ####[facility] [id number] [place] [address] [place] HIV immunoassay testing algorithm interpretation (S/P/Bld) [Interp] Normal [facility] Comment on above: Order Comment: Speci men Type: BLOOD SPECIMENOrdering Facility: [facility] Address: [address] [place] [address] Result Comment: No e vidence of HIV-1 or HIV-2 infection. Should recent infection be suspected, repeat testing may be considered 2-3 weeks after this draw.[place] Rev. Code 3701.243(E): This information has been [...] or diagnoses. Performed By: #### 3 1201-7, 28551-4, AHAVG, 5-3, 82380-5 ####[facility] LABCLIA [id number] [address] [place] [address] [place] Hepatic function 2000 panelo n 11-13-2024 Albumin [Mass/Vol] 2.8 g/dL Low 3.9-4.9 [facility] Comment on above: Order Comment: Speci men Type: BLOOD SPECIMENOrdering Facility: [facility] Address: [address] [place] [address] Performed By: #### 2 4321-2, 12957-0, 64674-3, 12521-0 ####[facility] LABCLIA [id number] [address] [address] [place] ALP [Catalytic activity/Vol] 225 U/L High 38-113 [facility] Comment on above: Order Comment: Speci men Type: BLOOD SPECIMENOrdering Facility: [facility] Address: [address] [place] [address] Performed By: #### 2 4321-2, 77989-4, 27559-9, 00845-5 ####[facility] LABIA [id number] [address] [address] [place] ALT [Catalytic activity/Vol] 22 U/L Normal 10-54 [facility] Comment on above: Order Comment: Speci men Type: BLOOD SPECIMENOrdering Facility: [facility] Address: [address] [place] [address] Performed By: #### 2 4321-2, 22457-3, 13718-6, 31619-9 ####[facility] LABIA [id number] [address] [address] [place] AST [Catalytic activity/Vol] 36 U/L Normal 14-40 [facility] Comment on above: Order Comment: Speci men Type: BLOOD SPECIMENOrdering Facility: [facility] Address: [address] [place] [address] Performed By: #### 2 4321-2, 93436-3, 32517-9, 18356-4 ####[facility] LABCLIA [id number] [address] [address] [place] Bilirubin [Mass/Vol] 1.8 mg/dL High 0.2-1.3 [facility] Comment on above: Order Comment: Speci men Type: BLOOD SPECIMENOrdering Facility: [facility] Address: [address] [place] [address] Performed By: #### 2 4321-2, 66897-1, 01784-2, 77053-2 ####[facility] LABIA [id number] [place] [address] [place] Bilirubin.conjugated [Mass/Vol] 0.9 mg/dL High <0.3 [facility] Comment on above: Order Comment: Speci men Type: BLOOD SPECIMENOrdering Facility: [facility] Address: [address] [place] [address] Performed By: #### 2 4321-2, 21048-7, 09344-2, 92883-9 ####[facility] LABIA [id number] [place] [id number] [place] Protein [Mass/Vol] 5.2 g/dL Low 6.3-8.0 [facility] Comment on above: Order Comment: Speci men Type: BLOOD SPECIMENOrdering Facility: [facility] Address: [address] [place] [address] Performed By: #### 2 4321-2, 73045-0, 16821-9, 44147-7 ####[facility] LABIA [id number] [place] [id number] [place] LIVER REC INIT W/Uon 025 ALLOGEN RESULTS TO FOLLOW See Allogen report to follow Normal [facility] Comment on above: Order Comment: Speci men Type: BLOOD SPECIMENOrdering Facility: [facility] Address: [address] [place] [address] Performed By: #### L RIPW ####[facility] [id number] [place] [address] [place] LPa SerPl-mCncon 11-13-2024 Lipoprotein a [Mass/Vol] mg/dL Normal <30 [facility] Comment on above: Order Comment: Speci men Type: BLOOD SPECIMENOrdering Facility: [facility] Address: [address] [place] [address] Performed By: #### 1 0835-7 ####[facility] LABCLIA [id number] [address] [place] Lipid 1996 panelon Cholesterol [Mass/Vol] 52 mg/dL Normal <200 [facility] Comment on above: Order Comment: Speci men Type: BLOOD SPECIMENOrdering Facility: [facility] Address: [address] [place] [address] Result Comment: <200 mg/dL, Desirable 200-239 mg/dL, Borderline high>239 mg/dL, High Performed By: #### 2 4321-2, 38103-8, 12177-7, 24996-5 ####[facility] LABCLIA [id number] [address] STATES [facility] Cholesterol in HDL [Mass/Vol] 17 mg/dL Low >39 [facility] Comment on above: Order Comment: Speci men Type: BLOOD SPECIMENOrdering Facility: [facility] Address: [address] [place] [address] Result Comment: 40-5 9 mg/dL, Acceptable>59 mg/dL, High: Negative risk factor for coronary heart disease<40 mg/dL, Low: Positive risk factor for coronary heart disease Performed By: #### 2 4321-2, 18451-8, 82122-2, 92260-8 ####[facility] LABCLIA [id number] [address] [address] [facility] [place] Cholesterol in LDL [Mass/Vol] 26 mg/dL Normal <100 [facility] Comment on above: Order Comment: Speci men Type: BLOOD SPECIMENOrdering Facility: [facility] Address: [address] [place] [address] Result Comment: <100 mg/dL, Optimal 100-129 mg/dL, Near optimal/above optimal 130-159 mg/dL, Borderline high 160-189 mg/dL, High>189 mg/dL, Very highSecondary prevention optimal LDL Cholesterol levels are recommended to be < 70 mg/dL Performed By: #### 2 4321-2, 87321-1, 26722-1, 19557-4 ####[facility] LABCLIA [id number] [address] [address] [place] Cholesterol in LDL/Cholesterol in HDL [Mass ratio] 1.53 {ratio} Normal <2.54 [facility] Comment on above: Order Comment: Meggani men Type: BLOOD SPECIMENOrdering Facility: [facility] Address: [address] [place] [address] Result Comment: Refe rence:1. National Cholesterol Education Program ATP III Guideline At-A-Glance Quick Desk Reference: National Heart, Lung, and Blood [place]. National Institutes of Health. 2001: NIH Publication No. 01-3305.2. An International Atherosclerosis Society position paper: global recommendations for the management of dyslipidemia: executive summary, Atherosclerosis. 2014: 232(2):410-413. Performed By: #### 2 4321-2, 88365-2, 85433-0, 50078-0 ####[facility] LABCLIA [id number] [address] [address] [place] Cholesterol in VLDL [Mass/Vol] 9 mg/dL Normal <30 [facility] Comment on above: Order Comment: Speci men Type: BLOOD SPECIMENOrdering Facility: [facility] Address: [address] [place] [address] Performed By: #### 2 4321-2, 51424-8, 85767-1, 87566-0 ####[facility] LABCLIA [id number] [address] [address] [place] Cholesterol non HDL [Mass/Vol] 35 mg/dL Normal <130 [facility] Comment on above: Order Comment: Speci men Type: BLOOD SPECIMENOrdering Facility: [facility] Address: [address] [place] [address] Result Comment: <130 mg/dL, Optimal 130-159 mg/dL, Near optimal/above optimal 160-189 mg/dL, Borderline high 190-219 mg/dL, High>219 mg/dL, Very highSecondary prevention optimal non HDL Cholesterol levels are recommended to be <100 mg/dL Performed By: #### 2 4321-2, 41020-5, 03287-1, 36601-3 ####[facility] LABIA [id number] [address] [place] Cholesterol.total/Donna sterol in HDL [Mass ratio] 3.06 {ratio} Normal <5.10 [facility] Comment on above: Order Comment: Speci men Type: BLOOD SPECIMENOrdering Facility: [facility] Address: [address] [place] [address] Performed By: #### 2 4321-2, 41743-2, 71744-1, 22456-7 ####[facility] LABIA [id number] [place] [id number] [place] [facility] FASTING TIME 4 hrs Normal [facility] Comment on above: Order Comment: Speci men Type: BLOOD SPECIMENOrdering Facility: [facility] Address: [address] [place] [address] Performed By: #### 2 4321-2, 31594-0, 33877-4, 60565-1 ####[facility] LABIA [id number] [place] [id number] [place] Triglyceride [Mass/Vol] 45 mg/dL Normal <150 [facility] Comment on above: Order Comment: Speci men Type: BLOOD SPECIMENOrdering Facility: [facility] Address: [address] [place] [address] Result Comment: <150 mg/dL, Normal 150-199 mg/dL, Borderline high 200-499 mg/dL, High>499 mg/dL, Very high Performed By: #### 2 4321-2, 25455-4, 11104-4, 63433-5 ####[facility] LABCLIA [id number] [address] [address] [place] MUMPS IGG ABon 11-13-2024 MuV IgG Ql (S) Negative Abnormal Positive [facility] Comment on above: Order Comment: Speci men Type: BLOOD SPECIMENOrdering Facility: [facility] Address: [address] [place] [address] Result Comment: The result suggests no history of Mumps vaccination or exposure to Mumps virus, however, some individuals with past history of Mumps vaccination may test negative using this test. Please correlate with past history of vaccination if applicable. Performed By: #### 7 3752-8, AHAVG, STRSER, MUMPSG ####[facility]IA [id number] [address] [address] [place] NT-proBNP [facility] 11-13 Natriuretic peptide.B prohormone N-Terminal [Mass/Vol] 1047 pg/mL High <125 [facility] Comment on above: Order Comment: Speci men Type: BLOOD SPECIMENOrdering Facility: [facility] Address: [address] [place] [address] Performed By: #### 2 4321-2, 58107-2, 06816-0, 70043-9 ####[facility] [id number] [address] [address] [place] NURSING PROGon 11-13-2024 NURSING PROG Normal [facility] NURSING PROG Normal [facility] PHOSPHATIDYLETHANOL (PETH)on 11-13-2024 EER PETH See Note Normal [facility] Comment on above: Order Comment: Speci men Type: BLOOD SPECIMENOrdering Facility: [facility] Address: [address] [place] [address] Result Comment: Auth orized individuals can access the [employer] Enhanced Reportwith an [employer] Connect account using the following link.Your local lab can assist you in obtaining the patientreport if you don't have a Connect account.[email or web address] Performed By: #### P ETH ####[facility] [id number] [place] [address] PETH 16:0/18.2 (PLPETH) <10 Normal [facility] Comment on above: Order Comment: Speci men Type: BLOOD SPECIMENOrdering Facility: [facility] Address: [address] [place] [address] Result Comment: Refe rence ranges are not well established. Performed By: #### P ETH ####[facility]IES[facility] [id number] [place] [address] PETH 16:0/18:1 (POPETH) <10 Normal [facility] Comment on above: Order Comment: Speci men Type: BLOOD SPECIMENOrdering Facility: [facility] Address: [address] [place] [address] Result Comment: PEth 16:0/18:1 (POPEth)Less than 10 ng/mL............Not detectedLess than 20 ng/mL............Abstinence or light mnteosagwjdqfxylyd83 - 200 ng/mL................Moderate alcohol consumptionGreater than 200 ng/mL........Heavy alcohol consumption or chronicalcohol use(Reference: Alonso Landaverde and Mathew Ha 2018 J. Forensic Sci) Performed By: #### P ETH ####[facility]IESCLIA [id number] [place] [address] PETH INTERPRETATION See Comment Normal [facility] Comment on above: Order Comment: Speci men Type: BLOOD SPECIMENOrdering Facility: [facility] Address: [address] [place] [address] Result Comment: Phos phatidylethanol (PEth) is a [...] was developed and its performance characteristicsdetermined by [facility]. It has not been cleared orapproved by the U.S. Food and Drug Administration. This test wasperformed in a CLIA-certified laboratory and is intended forclinical purposes.Performed By: [facility] [place], [place] [address]Uucygflaoo Director: Lizandro Ordonez MD, PhDCLIA Number: [id number] Performed By: #### P ETH ####[facility] [id number] [place] [address] PT panel Coag (PPP)on 2024 INR Coag (PPP) [Relative time] 1.9 {INR} High 0.9-1.3 [facility] Comment on above: Order Comment: Speci men Type: BLOOD SPECIMENOrdering Facility: [facility] Address: [address] [place] [address] Result Comment: Sarah min K Antagonist (VKA) Therapeutic Range: INR 2 to 3 (Target INR of 2.5)Note: For patients treated with VKA drugs, such as warfarin, the [employer] 2012 Guideline recommends [...] [phone] Performed By: #### 3 4528-0, 3255-7 ####[facility] LABCLIA [id number] [place] [address] [place] PT Coag (PPP) [Time] 19.9 s High 9.7-13.0 [facility] Comment on above: Order Comment: Ezekiel ramirez Type: BLOOD SPECIMENOrdering Facility: [facility] Address: [address] [place] [address] Performed By: #### 3 4528-0, 3255-7 ####[facility] LABCLIA [id number] [place] [address] [place] Pathology biopsy report Marco Antonio (Tiss)on 11-13-2024 AP DISCLAIMER Normal [facility] Comment on above: Order Comment: Ezekiel ramirez Type: TISSUE SPECIMENOrdering Facility: [facility] Address: [address] [place] [address] Result Comment: Shellie pugh Developed Test (LDT) Disclaimer:Performance characteristics of immunohistochemical, immunofluorescent, and chromogenic in-situ hybridization tests have been determined by the performing laboratory within [facility]'s Thai Nuno Pathology and Laboratory Medicine Department ([facility], [facility], [facility], [facility], [facility], [facility], or [facility]) in a manner consistent with [...] Performed By: #### 6 6121-5 ####[facility]ORYCLIA [id number] [address] LABCLIA [id number] [address] [place] CASE REPORT Normal [facility] Comment on above: Order Comment: Speci men Type: TISSUE SPECIMENOrdering Facility: [facility] Address: [address] [place] [address] Result Comment: Surg [facility] Pathology Report Case: [id number] Provider: Thai Pineda MD Collected: 11/13/2024 09:40 AMOrdering Location: [place] [address] Received: 11/15/2024 03:18 PMPathologist: Axel Berger MDSpecimen: Esophagus, Biopsy, r/o esophageal candidiasis Performed By: #### 6 6121-5 ####[facility]ORYCLIA [id number] [address] LABCLIA [id number] [address] FINAL DIAGNOSIS Normal [facility] Comment on above: Order Comment: Speci men Type: TISSUE SPECIMENOrdering Facility: [facility] Address: [address] [place] [address] Result Comment: Esop hagus, biopsy:- Squamous mucosal candidiasis.JEL 11/16/2024 at 1034 EDT Performed By: #### 6 6121-5 ####[facility]ORATORYCLIA [id number] [place] [id number] [facility] LABCLIA [id number] [place] [id number] [facility] FINAL PERFORMING LAB Normal [facility] Comment on above: Order Comment: Speci men Type: TISSUE SPECIMENOrdering Facility: [facility] Address: [address] [place] [address] Result Comment: Diag nostic interpretation performed at: [facility], [address] [place] [address] CLIA# [id number] Director: Rick Harris MD Performed By: #### 6 6121-5 ####[facility]ORYCLIA [id number] [address] LABCLIA [id number] [place] [address] [place] GROSS DESCRIPTION Normal [facility] Comment on above: Order Comment: Speci men Type: TISSUE SPECIMENOrdering Facility: [facility] Address: [address] [place] [address] Result Comment: A. E sophagus, BiopsyReceived in formalin are multiple pieces of espitia, soft tissue aggregating to 0.9 x 0.2 x 0.2 cm. Totally submitted in one cassette.BC November 15, 2024 4:50 PMGross examination performed at [facility], [address] [place] [address] Performed By: #### 6 6121-5 ####[facility]ORYCLIA [id number] [address] LABCLIA [id number] [place] [address] [place] Phosphate SerPl-mCncon 11-13 Phosphate [Mass/Vol] 1.5 mg/dL Low 2.7-4.8 [facility] Comment on above: Order Comment: Speci men Type: BLOOD SPECIMENOrdering Facility: [facility] Address: [address] [place] [address] Performed By: #### 2 777-1, 3016-3 ####[facility] LABCLIA [id number] [place] [address] [place] RUBEOLA (MEASLES)IGGon 11-13 MEASLES IGG AB, QUAL Positive Normal Positive [facility] Comment on above: Order Comment: Speci men Type: BLOOD SPECIMENOrdering Facility: [facility] Address: [address] [place] [address] Result Comment: The result suggests recent or past exposure to Measles virus or Measles vaccination. The current test does not detect neutralizing antibodies. Positive result may also be seen due to presence of passively-transferred antibodies. Please correlate with patient's history. Performed By: #### 7 852-7, MEASLG, VZVG2, 1988- ####[facility] LABCLIA [id number] [place] [address] [place] Reagin and Treponema pallidu m IgG and IgM [Interp]on 11-13-2024 T. pallidum IgG+IgM IA Ql (S) Non-Reactive Normal Nonreactive [facility] Comment on above: Order Comment: Speci men Type: BLOOD SPECIMENOrdering Facility: [facility] Address: [address] [place] [address] Performed By: #### 7 3752-8, AHAVG, STRSER, MUMPSG ####[facility] LABCLIA [id number] [place] [address] [place] Reagin+T pallidum IgG+IgM Se rPl-Impon 11-13-2024 Reagin and Treponema pallidum IgG and IgM [Interp] Cannot exclude recent Treponemal infection if specimen collected within 7-10 days after appearance of suspect lesions or 2-3 weeks after an exposure. Clinical correlation is required. Normal [facility] Comment on above: Order Comment: Speci [facility] Type: BLOOD SPECIMENOrdering Facility: [facility] Address: [address] [place] [address] Performed By: #### 7 3752-8, AHAVG, STRSER, MUMPSG ####[facility] LABCLIA [id number] [place] [address] [place] STAPHYLOCOCCUS AUREUS AND MR SA SCREEN, PCR, NASALon 11-13-2024 S. aureus and MRSA panel ANANTH+probe (Nose) Not detected Normal Not Detected [facility] Comment on above: Order Comment: Spechelder ramirez Type: SWABOrdering Facility: [facility] Address: [address] [place] [address] Performed By: #### S APCR ####[facility] LABCLIA [id number] [place] [address] [place] STRONGYLOIDES IGG BLon 11-13 STRONGYLOIDES IGG QUALITATIVE Negative Normal Negative [facility] Comment on above: Order Comment: Speci james Type: BLOOD SPECIMENOrdering Facility: [facility] Address: [address] [place] [address] Performed By: #### S TRSER ####[facility] LABCLIA [id number] [place] [address] [place] Performed By: #### 7 3752-8, AHAVG, STRSER, MUMPSG ####[facility] LABCLIA [id number] [place] [address] [place] T. gondii IgG Qn (S)on 11-13 TOXO IGG QUAL Negative Normal Negative [facility] Comment on above: Order Comment: Ezekiel ramirez Type: BLOOD SPECIMENOrdering Facility: [facility] Address: [address] [place] [address] Result Comment: No s erological evidence of past exposure to Toxoplasma gondii. Cannot exclude recent infection if the specimen collected within 3-4 weeks after infection. Performed By: #### 8 039-0, 7885-7 ####[facility] LABCLIA [id number] [place] [address] [place] THERAPY NTon 11-13-2024 THERAPY NT Normal [facility] TOXICOLOGY PANEL BLDon 11-13 Acetaminophen [Mass/Vol] ug/mL Low 10-30 [facility] Comment on above: Order Comment: Speci men Type: BLOOD SPECIMENOrdering Facility: [facility] Address: [facility] [place] [address] Result Comment: Toxi c > 150 ug/mL 4 hours post ingestionThe Viviana Figueroa nomogram can be used to estimate the probability of hepatotoxicity via the relationship of plasma acetaminophen concentration to the post ingestion interval. (Skylar. Pediatrics. 1975. 55:871 to 876 and Viviana et al. Arch Design Project Manager Med. 1981. 141:380 to 385).Reference ranges and high/low indicator flags are provided as general guidelines only. The treating physician must determine appropriate target levels/dosing based on the specific clinical situation. Performed By: #### T OXP ####[facility] LABCLIA [id number] [place] [address] [place] Ethanol [Mass/Vol] mg/dL Normal <11 [facility] Comment on above: Order Comment: Ezekiel ramirez Type: BLOOD SPECIMENOrdering Facility: [facility] Address: [address] [place] [address] Performed By: #### T OXP ####[facility] LABCLIA [id number] [place] [id number] [place] Salicylates [Mass/Vol] mg/dL Low 3.0-30.0 [facility] Comment on above: Order Comment: Ezekiel ramirez Type: BLOOD SPECIMENOrdering Facility: [facility] Address: [address] [place] [address] Result Comment: The therapeutic range varies and has been reported to be 3.0 to 10.0 mg/dL for anti pyretic/analgesic conditions and 15.0 to 30.0 mg/dL for anti inflammatory/rheumatic fever conditions. Ranges published by the instrument mgmt consultant.Reference ranges and high/low indicator flags are provided as general guidelines only. The treating physician must determine appropriate target levels/dosing based on the specific clinical situation. Performed By: #### T OXP ####[facility] LABCLIA [id number] [address] [address] [place] TSH SerPl-aCncon 11-13-2024 TSH Qn 0.633 m[IU]/L Normal 0.270-4.200 [facility] Comment on above: Order Comment: Ezekiel ramirez Type: BLOOD SPECIMENOrdering Facility: [facility] Address: [address] [place] [address] Performed By: #### 2 777-1, 3016-3 ####[facility] LABCLIA [id number] [place] [address] [place] Upper GI endoscopyon 025 Upper GI endoscopy Normal [facility] VARICELLA ZOSTER IGGon 11-13 VARICELLA ZOSTER IGG, QUAL Positive Normal Positive [facility] Comment on above: Order Comment: Ezekiel ramirez Type: BLOOD SPECIMENOrdering Facility: [facility] Address: [address] [place] [address] Result Comment: The result suggests recent or past exposure to Varicella-Zoster virus or chickenpox vaccination or zoster vaccination. Positive result may also be seen due to presence of passively-transferred antibodies. Please correlate with patient's history. Performed By: #### 7 852-7, MEASLG, VZVG2, 1987-10 ####[facility] LABCLIA [id number] [address] [place] Vit A SerPl-mCncon 5 Retinol [Mass/Vol] 0.03 mg/L Low 0.30-1.20 [facility] Comment on above: Order Comment: Ezekiel ramirez Type: BLOOD SPECIMENOrdering Facility: [facility] Address: [address] [place] [address] Result Comment: This test was developed, and its performance characteristics determined by the [facility] Department of Pathology and Laboratory Medicine. It has not been cleared or approved by the FDA. The [facility] Department of Pathology and Laboratory Medicine is regulated under CLIA as qualified to perform high-complexity testing. This test is used for clinical purposes. It should not be regarded as investigational or for research. Performed By: #### 2 923-1, 1823-4 ####[facility] LABCLIA [id number] [address] [place] Zinc SerPl-mCncon 11-13-2024 Zinc [Mass/Vol] 60 ug/dL Normal 60-120 [facility] Comment on above: Order Comment: Speci men Type: BLOOD SPECIMENOrdering Facility: [facility] Address: [address] [place] [address] Result Comment: This test was developed, and its performance characteristics determined by the [facility] Department of Pathology and Laboratory Medicine. It has not been cleared or approved by the FDA. The [facility] Department of Pathology and Laboratory Medicine is regulated under CLIA as qualified to perform high-complexity testing. This test is used for clinical purposes. It should not be regarded as investigational or for research. Performed By: #### 5 763-8 ####[facility] LABIA [id number] [address] STATES OF [facility] AFP SerPl-mCncon 11-12-2024 AFP [Mass/Vol] 2.25 ng/mL Normal <9.00 [facility] Comment on above: Order Comment: Speci men Type: BLOOD SPECIMENOrdering Facility: [facility] Address: [address] [place] [address] Result Comment: The Alpha-Fetoprotein test was performed using the PVPowerel DxI immunoenzymatic assay. Results obtained with different assay methods or kits cannot be used interchangeably. Performed By: #### 1 834-1 ####[facility] LABIA [id number] [address] [place] ARTERIAL BLOOD GASESon 11-12 Base deficit (BldA) [Moles/Vol] -8 mmol/L Low -2-0 [facility] Comment on above: Order Comment: Speci men Type: ARTERIAL BLOOD SPECIMENOrdering Facility: [facility] Address: [address] [place] [address] Performed By: #### A LLBG ####[facility] LABIA [id number] [address] [place] Body temperature 98.6 [degF] Normal [facility] Comment on above: Order Comment: Speci men Type: ARTERIAL BLOOD SPECIMENOrdering Facility: [facility] Address: [address] [place] [address] Performed By: #### A LLBG ####[facility] LABCLIA [id number] [place] [address] [place] Calcium.ionized (Bld) [Mass/Vol] 1.20 mmol/L Normal 1.08-1.30 [facility] Comment on above: Order Comment: Speci men Type: ARTERIAL BLOOD SPECIMENOrdering Facility: [facility] Address: [address] [place] [address] Performed By: #### A LLBG ####[facility] LABIA [id number] [place] [address] [place] Calcium.ionized adjusted to pH 7.4 (BldA) [Moles/Vol] 1.24 mmol/L Normal 1.08-1.30 [facility] Comment on above: Order Comment: Speci men Type: ARTERIAL BLOOD SPECIMENOrdering Facility: [facility] Address: [address] [place] [address] Performed By: #### A LLBG ####[facility] LABIA [id number] [place] [address] [place] Carboxyhemoglobin (BldA) [Mass fraction] 2.0 % Normal 0.0-2.0 [facility] Comment on above: Order Comment: Speci men Type: ARTERIAL BLOOD SPECIMENOrdering Facility: [facility] Address: [address] [place] [address] Result Comment: Carb oxyhemoglobin Reference Range for Smokers: 2.0-8.0% Performed By: #### A LLBG ####[facility] LABIA [id number] [place] [address] [place] CO2 (Bld) [Partial pressure] 21 mm Hg Low 36-46 [facility] Comment on above: Order Comment: Speci men Type: ARTERIAL BLOOD SPECIMENOrdering Facility: [facility] Address: [address] [place] [address] Performed By: #### A LLBG ####[facility] LABCLIA [id number] [place] [address] [place] Glucose [Mass/Vol] 276 mg/dL High 60-105 [facility] Comment on above: Order Comment: Speci men Type: ARTERIAL BLOOD SPECIMENOrdering Facility: [facility] Address: [address] [place] [address] Performed By: #### A LLBG ####[facility] LABCLIA [id number] [place] [address] [place] HCO3 (Bld) [Moles/Vol] 15 mmol/L Low 22-26 [facility] Comment on above: Order Comment: Speci men Type: ARTERIAL BLOOD SPECIMENOrdering Facility: [facility] Address: [address] [place] [address] Performed By: #### A LLBG ####[facility] LABCLIA [id number] [place] [address] [place] Hematocrit (Bld) [Volume fraction] 22.4 % Low 39.0-51.0 [facility] Comment on above: Order Comment: Speci men Type: ARTERIAL BLOOD SPECIMENOrdering Facility: [facility] Address: [address] [place] [address] Performed By: #### A LLBG ####[facility] LABCLIA [id number] [place] [address] [place] Hemoglobin (Bld) [Mass/Vol] 7.2 g/dL Low 13.0-17.0 [facility] Comment on above: Order Comment: Speci men Type: ARTERIAL BLOOD SPECIMENOrdering Facility: [facility] Address: [address] [place] [address] Performed By: #### A LLBG ####[facility] LABCLIA [id number] [address] [place] [address] [place] Lactate [Moles/Vol] 2.9 mmol/L High 0.5-2.2 [facility] Comment on above: Order Comment: Speci men Type: ARTERIAL BLOOD SPECIMENOrdering Facility: [facility] Address: [address] [place], [place] [address] Performed By: #### A LLBG ####[facility] LABCLIA [id number] [address] [place] [address] [place] Methemoglobin (Bld) [Mass fraction] 1.0 % Normal 0.0-1.5 [facility] Comment on above: Order Comment: Speci men Type: ARTERIAL BLOOD SPECIMENOrdering Facility: [facility] Address: [address] [place] [address] Performed By: #### A LLBG ####[facility] LABCLIA [id number] [place] [id number] [place] O2 THERAPY RA=Room Air Normal [facility] Comment on above: Order Comment: Speci men Type: ARTERIAL BLOOD SPECIMENOrdering Facility: [facility] Address: [address] [place] [address] Performed By: #### A LLBG ####[facility] LABCLIA [id number] [address] [address] [place] Oxygen (Bld) [Partial pressure] 94 mm Hg Normal 85-95 [facility] Comment on above: Order Comment: Speci men Type: ARTERIAL BLOOD SPECIMENOrdering Facility: [facility] Address: [address] [place] [address] Performed By: #### A LLBG ####[facility] LABCLIA [id number] [address] [address] [place] Oxyhemoglobin (BldA) [Mass fraction] 96 % Normal 95-98 [facility] Comment on above: Order Comment: Speci men Type: ARTERIAL BLOOD SPECIMENOrdering Facility: [facility] Address: [address] [place] [address] Performed By: #### A LLBG ####[facility] LABCLIA [id number] [place] [address] [place] pH (Bld) 7.46 [pH] High 7.35-7.45 [facility] Comment on above: Order Comment: Speci men Type: ARTERIAL BLOOD SPECIMENOrdering Facility: [facility] Address: [address] [place] [address] Performed By: #### A LLBG ####[facility] LABIA [id number] [place] [address] [place] PO2 / FIO2 RATIO 448 mmHg Normal >300 [facility] Comment on above: Order Comment: Speci men Type: ARTERIAL BLOOD SPECIMENOrdering Facility: [facility] Address: [address] [place] [address] Performed By: #### A LLBG ####[facility] LABIA [id number] [place] [address] [place] Potassium [Moles/Vol] 3.9 mmol/L Normal 3.5-5.0 [facility] Comment on above: Order Comment: Speci men Type: ARTERIAL BLOOD SPECIMENOrdering Facility: [facility] Address: [address] [place] [address] Performed By: #### A LLBG ####[facility] LABIA [id number] [place] [address] [place] Sodium [Moles/Vol] 124 mmol/L Low 136-144 [facility] Comment on above: Order Comment: Speci men Type: ARTERIAL BLOOD SPECIMENOrdering Facility: [facility] Address: [address] [place] [address] Performed By: #### A LLBG ####[facility] LABIA [id number] [place] [address] [place] Bacteria Ur Culton 04-11-202 5 Bacteria identified Cx Nom (U) Normal [facility] Comment on above: Performed By: #### 6 30-4, 22263-7 ####[facility] LABCLIA [id number] [address] [address] [place] Basic metabolic 2000 panelon 11-12-2024 Anion gap [Moles/Vol] 11 mmol/L Normal 8-15 [facility] Comment on above: Order Comment: Speci men Type: BLOOD SPECIMENOrdering Facility: [facility] Address: [address] [place], [place] [address] Performed By: #### 2 4321-2, 69983-8, 2777-1 ####[facility] LABIA [id number] [address] [address] [place] Calcium [Mass/Vol] 9.2 mg/dL Normal 8.5-10.2 [facility] Comment on above: Order Comment: Speci men Type: BLOOD SPECIMENOrdering Facility: [facility] Address: [address] [place], [place] [address] Performed By: #### 2 4321-2, 40577-0, 2777-1 ####[facility] LABIA [id number] [address] [address] [place] Chloride [Moles/Vol] 99 mmol/L Normal 98-107 [facility] Comment on above: Order Comment: Speci men Type: BLOOD SPECIMENOrdering Facility: [facility] Address: [address] [place] [address] Performed By: #### 2 4321-2, 36045-2, 2777-1 ####[facility] LABIA [id number] [address] [address] [place] CO2 [Moles/Vol] 14 mmol/L Low 22-30 [facility] Comment on above: Order Comment: Speci men Type: BLOOD SPECIMENOrdering Facility: [facility] Address: [address] [place] [address] Performed By: #### 2 4321-2, 30856-3, 2776- ####[facility] LABIA [id number] [address] [address] [place] Creatinine [Mass/Vol] 1.22 mg/dL Normal 0.73-1.22 [facility] Comment on above: Order Comment: Spechelder men Type: BLOOD SPECIMENOrdering Facility: [facility] Address: [address] [place] [address] Performed By: #### 2 4321-2, 47466-4, 2776- ####[facility] [id number] [place] [address] [place] Creatinine and Glomerular filtration rate.predicted panel (S/P/Bld) 69 mL/min/1.73m??? Normal >=60 [facility] Comment on above: Order Comment: Ezekiel ramirez Type: BLOOD SPECIMENOrdering Facility: [facility] Address: [address] [place] [address] Result Comment: Patric mated Glomerular Filtration Rate [...] actual GFR. Performed By: #### 2 4321-2, 33482-7, 2776- ####[facility] LABIA [id number] [address] [address] [place] Glucose [Mass/Vol] 304 mg/dL High 74-99 [facility] Comment on above: Order Comment: Ezekiel ramirez Type: BLOOD SPECIMENOrdering Facility: [facility] Address: [address] [place] [address] Result Comment: The [place] Diabetes Association (ADA) provides guidance for cutoff [...] Standards of Medical Care in Diabetes 2016, [place] [employer]. Diabetes Care. 2016.39(Suppl 1). Performed By: #### 2 4321-2, 53789-8, 2776- ####[facility] LABCLIA [id number] [place] [address] [place] Potassium [Moles/Vol] 4.3 mmol/L Normal 3.7-5.1 [facility] Comment on above: Order Comment: Speci men Type: BLOOD SPECIMENOrdering Facility: [facility] Address: [address] [place] [address] Performed By: #### 2 432-2, 35611-0, 2776-08 ####[facility] LABCLIA [id number] [place] [id number] [place] Sodium [Moles/Vol] 124 mmol/L Low 136-144 [facility] Comment on above: Order Comment: Speci men Type: BLOOD SPECIMENOrdering Facility: [facility] Address: [address] [place] [address] Performed By: #### 2 432-2, 14011-4, 2776-08 ####[facility] LABCLIA [id number] [address] [address] [place] Urea nitrogen [Mass/Vol] 22 mg/dL Normal 9-24 [facility] Comment on above: Order Comment: Speci men Type: BLOOD SPECIMENOrdering Facility: [facility] Address: [address] [place] [address] Performed By: #### 2 4321-2, 46387-2, 2776-08 ####[facility] LABCLIA [id number] [address] [address] [place] CASE MGT INIT ASSESon 2024 CASE MGT INIT ASSES Normal [facility] CBC panel Auto (Bld)on 11-12 Erythrocyte distribution width (RBC) [Ratio] 16.9 % High 11.5-15.0 [facility] Comment on above: Order Comment: Speci men Type: BLOOD SPECIMENOrdering Facility: [facility] Address: [address] [place] [address] Performed By: #### 5 8410-2 ####[facility] LABCLIA [id number] [place] [address] [place] Hematocrit (Bld) [Volume fraction] 21.7 % Low 39.0-51.0 [facility] Comment on above: Order Comment: Speci men Type: BLOOD SPECIMENOrdering Facility: [facility] Address: [address] [place] [address] Performed By: #### 5 8410-2 ####[facility] LABCLIA [id number] [place] [address] [place] Hemoglobin (Bld) [Mass/Vol] 7.5 g/dL Low 13.0-17.0 [facility] Comment on above: Order Comment: Speci men Type: BLOOD SPECIMENOrdering Facility: [facility] Address: [address] [place] [address] Performed By: #### 5 8410-2 ####[facility] LABCLIA [id number] [place] [id number] [place] MCH (RBC) [Entitic mass] 31.5 pg Normal 26.0-34.0 [facility] Comment on above: Order Comment: Speci men Type: BLOOD SPECIMENOrdering Facility: [facility] Address: [address] [place] [address] Performed By: #### 5 8410-2 ####[facility] LABCLIA [id number] [place] [address] [place] MCHC (RBC) [Mass/Vol] 34.6 g/dL Normal 30.5-36.0 [facility] Comment on above: Order Comment: Speci men Type: BLOOD SPECIMENOrdering Facility: [facility] Address: [address] [place] [address] Performed By: #### 5 8410-2 ####[facility] LABIA [id number] [place] [address] [place] MCV (RBC) [Entitic vol] 91.2 fL Normal 80.0-100.0 [facility] Comment on above: Order Comment: Speci men Type: BLOOD SPECIMENOrdering Facility: [facility] Address: [address] [place] [address] Performed By: #### 5 8410-2 ####[facility] LABIA [id number] [place] [address] [place] Nucleated RBC (Bld) [#/Vol] 10*3/uL Normal <0.01 [facility] Comment on above: Order Comment: Speci men Type: BLOOD SPECIMENOrdering Facility: [facility] Address: [address] [place] [address] Performed By: #### 5 8410-2 ####[facility] LABIA [id number] [place] [address] [place] Platelet mean volume (Bld) [Entitic vol] 10.8 fL Normal 9.0-12.7 [facility] Comment on above: Order Comment: Speci men Type: BLOOD SPECIMENOrdering Facility: [facility] Address: [address] [place] [address] Performed By: #### 5 8410-2 ####[facility] LABIA [id number] [place] [address] [place] Platelets (Bld) [#/Vol] 31 10*3/uL Low 150-400 [facility] Comment on above: Order Comment: Speci men Type: BLOOD SPECIMENOrdering Facility: [facility] Address: [address] [place] [address] Result Comment: Resu lts checked and verified.No clot detected. Performed By: #### 5 8410-2 ####[facility] LABCLIA [id number] [place] [address] [place] RBC (Bld) [#/Vol] 2.38 10*6/uL Low 4.20-6.00 [facility] Comment on above: Order Comment: Speci men Type: BLOOD SPECIMENOrdering Facility: [facility] Address: [address] [place] [address] Performed By: #### 5 8410-2 ####[facility] LABIA [id number] [place] [address] [place] WBC (Bld) [#/Vol] 6.35 10*3/uL Normal 3.70-11.00 [facility] Comment on above: Order Comment: Speci men Type: BLOOD SPECIMENOrdering Facility: [facility] Address: [address] [place] [address] Performed By: #### 5 8410-2 ####[facility] LABIA [id number] [place] [address] [place] Erythrocyte distribution width (RBC) [Ratio] 17.3 % High 11.5-15.0 [facility] Comment on above: Order Comment: Speci men Type: BLOOD SPECIMENOrdering Facility: [facility] Address: [address] [place] [address] Performed By: #### 5 8410-2 ####[facility] LABCLIA [id number] [place] [address] [place] Hematocrit (Bld) [Volume fraction] 22.9 % Low 39.0-51.0 [facility] Comment on above: Order Comment: Speci men Type: BLOOD SPECIMENOrdering Facility: [facility] Address: [address] [place] [address] Performed By: #### 5 8410-2 ####[facility] LABIA [id number] [place] [address] [place] Hemoglobin (Bld) [Mass/Vol] 7.9 g/dL Low 13.0-17.0 [facility] Comment on above: Order Comment: Speci men Type: BLOOD SPECIMENOrdering Facility: [facility] Address: [address] [place] [address] Performed By: #### 5 8410-2 ####[facility] LABIA [id number] [place] [address] [place] MCH (RBC) [Entitic mass] 31.5 pg Normal 26.0-34.0 [facility] Comment on above: Order Comment: Speci men Type: BLOOD SPECIMENOrdering Facility: [facility] Address: [address] [place] [address] Performed By: #### 5 8410-2 ####[facility] [id number] [place] [address] [place] MCHC (RBC) [Mass/Vol] 34.5 g/dL Normal 30.5-36.0 [facility] Comment on above: Order Comment: Speci men Type: BLOOD SPECIMENOrdering Facility: [facility] Address: [address] [place] [address] Performed By: #### 5 8410-2 ####[facility] LABIA [id number] [place] [address] [place] MCV (RBC) [Entitic vol] 91.2 fL Normal 80.0-100.0 [facility] Comment on above: Order Comment: Speci men Type: BLOOD SPECIMENOrdering Facility: [facility] Address: [address] [place] [address] Performed By: #### 5 8410-2 ####[facility] LABCLIA [id number] [address] [address] [place] Nucleated RBC (Bld) [#/Vol] 10*3/uL Normal <0.01 [facility] Comment on above: Order Comment: Speci men Type: BLOOD SPECIMENOrdering Facility: [facility] Address: [address] [place] [address] Performed By: #### 5 8410-2 ####[facility] LABIA [id number] [place] [address] [place] Platelet mean volume (Bld) [Entitic vol] 11.6 fL Normal 9.0-12.7 [facility] Comment on above: Order Comment: Speci men Type: BLOOD SPECIMENOrdering Facility: [facility] Address: [address] [place] [address] Performed By: #### 5 8410-2 ####[facility] LABIA [id number] [place] [address] [place] Platelets (Bld) [#/Vol] 33 10*3/uL Low 150-400 [facility] Comment on above: Order Comment: Speci men Type: BLOOD SPECIMENOrdering Facility: [facility] Address: [address] [place] [address] Result Comment: Resu lts checked and verified.No clot detected. Performed By: #### 5 8410-2 ####[facility] LABIA [id number] [place] [address] [place] RBC (Bld) [#/Vol] 2.51 10*6/uL Low 4.20-6.00 [facility] Comment on above: Order Comment: Speci men Type: BLOOD SPECIMENOrdering Facility: [facility] Address: [address] [place] [address] Performed By: #### 5 8410-2 ####[facility] LABIA [id number] [place] [address] [place] WBC (Bld) [#/Vol] 7.27 10*3/uL Normal 3.70-11.00 [facility] Comment on above: Order Comment: Speci men Type: BLOOD SPECIMENOrdering Facility: [facility] Address: [address] [place] [address] Performed By: #### 5 8410-2 ####[facility] LABCLIA [id number] [place] [address] [place] CITRATED PLATELET COUNTon CITRATED PLATELET COUNT (WAM) 33 k/uL Low 150-400 [facility] Comment on above: Order Comment: Speci men Type: BLOOD SPECIMENOrdering Facility: [facility] Address: [address] [place] [address] Result Comment: Plat elet count confirmed by manual review of peripheral blood smear. No clot detected. Performed By: #### C ITPLT ####[facility] LABCLIA [id number] [place] [address] [place] CNCNPATEDon 11-12-2024 CNCNPATED Normal [facility] CNPNon 11-12-2024 CNPN Normal [facility] CONFIRM BLOOD TYPEon 025 ABO O Normal [facility] Comment on above: Order Comment: Speci men Type: BLOOD SPECIMENOrdering Facility: [facility] Address: [address] [place] [address] Performed By: #### C ONABO ####[facility] BLOOD BANKCLIA [id number] [place] [address] [place] Rh Nom (Bld) Positive Normal [facility] Comment on above: Order Comment: Speci men Type: BLOOD SPECIMENOrdering Facility: [facility] Address: [address] [place] [address] Performed By: #### C ONABO ####[facility] BLOOD BANKCLIA [id number] [place] [address] [place] CONSULTon 11-12-2024 CONSULT Normal [facility] CONSULT Normal [facility] CONSULT Normal [facility] CONSULT Normal [facility] CONSULT Normal [facility] CONSULT Normal [facility] CT CHEST WO IVCONon 11-13-19 CT CHEST WO IVCON Normal [facility] D dimer FEU PPP-mCncon 11-12 Fibrin D-dimer FEU (PPP) [Mass/Vol] 3850 ng/mL FEU High <500 [facility] Comment on above: Order Comment: Speci men Type: BLOOD SPECIMENOrdering Facility: [facility] Address: [address] [place] [address] Performed By: #### 4 8065-7 ####[facility] LABCLIA [id number] [place] [address] [place] ECHO WITH AGITATED SALINE CO NTRASTon 11-12-2024 ECHO WITH AGITATED SALINE CONTRAST Normal [facility] Fibrin D-dimer FEU (PPP) [Ma ss/Vol]on 11-12-2024 D DIMER AGE-RELATED CUTOFF 580 ng/mL FEU Normal [facility] Comment on above: Order Comment: Ezekiel ramirez Type: BLOOD SPECIMENOrdering Facility: [facility] Address: [address] [place] [address] Performed By: #### 4 8065-7 ####[facility] LABCLIA [id number] [place] [address] [place] Hepatic function 2000 panelo n 11-12-2024 Albumin [Mass/Vol] 3.0 g/dL Low 3.9-4.9 [facility] Comment on above: Order Comment: Meggani men Type: BLOOD SPECIMENOrdering Facility: [facility] Address: [address] [place] [address] Performed By: #### 2 4321-2, 46259-1, 2777-1 ####[facility] LABCLIA [id number] [id number] [address] [place] ALP [Catalytic activity/Vol] 252 U/L High 38-113 [facility] Comment on above: Order Comment: Speci men Type: BLOOD SPECIMENOrdering Facility: [facility] Address: [address] [place] [address] Performed By: #### 2 4321-2, 14083-6, 2777-1 ####[facility] LABCLIA [id number] [place] [address] [place] ALT [Catalytic activity/Vol] 24 U/L Normal 10-54 [facility] Comment on above: Order Comment: Speci men Type: BLOOD SPECIMENOrdering Facility: [facility] Address: [address] [place] [address] Performed By: #### 2 4321-2, 37965-5, 2777-1 ####[facility] LABCLIA [id number] [place] [address] [place] AST [Catalytic activity/Vol] 41 U/L High 14-40 [facility] Comment on above: Order Comment: Speci men Type: BLOOD SPECIMENOrdering Facility: [facility] Address: [address] [place] [address] Performed By: #### 2 4321-2, 35971-8, 277-1 ####[facility] LABCLIA [id number] [place] [id number] [place] Bilirubin [Mass/Vol] 1.8 mg/dL High 0.2-1.3 [facility] Comment on above: Order Comment: Speci men Type: BLOOD SPECIMENOrdering Facility: [facility] Address: [address] [place] [address] Performed By: #### 2 4321-2, 64727-1, 277-1 ####[facility] LABCLIA [id number] [address] [address] [place] Bilirubin.conjugated [Mass/Vol] 0.9 mg/dL High <0.3 [facility] Comment on above: Order Comment: Speci men Type: BLOOD SPECIMENOrdering Facility: [facility] Address: [address] [place] [address] Result Comment: Resu lts may be falsely decreased due to interference from hemolysis. Suggest reorder as clinically indicated. Performed By: #### 2 4321-2, 39180-3, 2777-1 ####[facility] LABCLIA [id number] [place] [address] [place] Protein [Mass/Vol] 5.5 g/dL Low 6.3-8.0 [facility] Comment on above: Order Comment: Speci men Type: BLOOD SPECIMENOrdering Facility: [facility] Address: [address] [place] [address] Performed By: #### 2 4321-2, 68360-8, 2777-1 ####[facility] LABIA [id number] [place] [address] [place] MEDICAL EMERon 11-12-2024 MEDICAL KRISTINA Normal [facility] NURSING PROGon 11-12-2024 NURSING PROG Normal [facility] NURSING PROG Normal [facility] NURSING PROG Normal [facility] NURSING PROG Normal [facility] NUTRITIONon 11-12-2024 NUTRITION Normal [facility] PTT, ANTICOAGULANT THERAPYon 11-12-2024 aPTT Coag (PPP) [Time] 62.6 s High 23.0-32.4 [facility] Comment on above: Order Comment: Speci men Type: BLOOD SPECIMENOrdering Facility: [facility] Address: [address] [place] [address] Performed By: #### P TTAC ####[facility] LABIA [id number] [place] [id number] [place] Phosphate SerPl-mCncon 11-12 Phosphate [Mass/Vol] 2.3 mg/dL Low 2.7-4.8 [facility] Comment on above: Order Comment: Speci men Type: BLOOD SPECIMENOrdering Facility: [facility] Address: [address] [place] [address] Performed By: #### 2 4321-2, 58864-7, 2777-1 ####[facility] LABCLIA [id number] [place] [address] [place] SOCIAL WORKon 11-12-2024 SOCIAL WORK Normal [facility] THERAPY NTon 11-12-2024 THERAPY NT Normal [facility] THERAPY NT Normal [facility] THROMBOGRAPH PANELon 025 Clot angle TEG (Bld) [Angle] 32.8 degrees Low 47.0-74.0 [facility] Comment on above: Order Comment: Speci men Type: BLOOD SPECIMENOrdering Facility: [facility] Address: [address] [place] [address] Performed By: #### T EGPNP ####[facility] LABCLIA [id number] [place] [address] [place] Clot Lysis 30 Min post maximum clot amplitude TEG (Bld) [Length fraction] 0.0 % Normal 0.0-8.0 [facility] Comment on above: Order Comment: Speci men Type: BLOOD SPECIMENOrdering Facility: [facility] Address: [address] [place] [address] Performed By: #### T EGPNP ####[facility] LABCLIA [id number] [place] [address] [place] Clotting time TEG (Bld) 5.0 minutes Normal 4.0-10.0 [facility] Comment on above: Order Comment: Speci men Type: BLOOD SPECIMENOrdering Facility: [facility] Address: [address] [place] [address] Performed By: #### T EGPNP ####[facility] LABCLIA [id number] [facility] [place] [address] [place] Coagulation index TEG Qn (Bld) -8.4 Low -4.6-3.2 [facility] Comment on above: Order Comment: Ezekiel ramirez Type: BLOOD SPECIMENOrdering Facility: [facility] Address: [address] [place] [address] Result Comment: This test was developed, and its performance characteristics determined by the [facility] Department of Pathology and Laboratory Medicine. It has not been cleared or approved by the FDA. The [facility] Department of Pathology and Laboratory Medicine is regulated under CLIA as qualified to perform high-complexity testing. This test is used for clinical purposes. It should not be regarded as investigational or for research. Performed By: #### T EGPNP ####[facility] LABIA [id number] [place] [address] [place] Maximum clot firmness TEG (Bld) [Length] 28.5 mm Low 51.0-75.0 [facility] Comment on above: Order Comment: Ezekiel ramirez Type: BLOOD SPECIMENOrdering Facility: [facility] Address: [address] [place] [address] Performed By: #### T EGPNP ####[facility] [id number] [address] [place] Thromboelastography after addtion of heparinase panel (Bld) Normal [facility] Comment on above: Order Comment: Ezekiel ramirez Type: BLOOD SPECIMENOrdering Facility: [facility] Address: [address] [place] [address] Result Comment: A th romboelastograph (TEG) study [...] timely manner. Performed By: #### T EGPNP ####[facility] LABCLIA [id number] [place] [address] [place] TOXICOLOGY SCREEN, ROUTINE U RINEon 11-12-2024 Amphetamines Confirm (U) [Mass/Vol] Negative Normal Negative [facility] Comment on above: Order Comment: Speci men Type: URINE SPECIMENOrdering Facility: [facility] Address: [address] [place] [address] Result Comment: Cuto ff threshold at 1000 ng/mL. Performed By: #### U TOX2 ####[facility] LABCLIA [id number] [place] [address] [place] BARBITURATES, URINE Negative Normal Negative [facility] Comment on above: Order Comment: Speci men Type: URINE SPECIMENOrdering Facility: [facility] Address: [address] [place] [address] Result Comment: Cuto ff threshold at 200 ng/mL. Performed By: #### U TOX2 ####[facility] LABCLIA [id number] [place] [address] [place] BENZODIAZEPINES, UR Negative Normal Negative [facility] Comment on above: Order Comment: Speci men Type: URINE SPECIMENOrdering Facility: [facility] Address: [address] [place] [address] Result Comment: Cuto ff threshold at 200 ng/mL. Performed By: #### U TOX2 ####[facility] LABCLIA [id number] [place] [address] [place] Cannabinoids Screen Ql (U) Negative Normal Negative [facility] Comment on above: Order Comment: Speci men Type: URINE SPECIMENOrdering Facility: [facility] Address: [address] [place] [address] Result Comment: Cuto ff threshold at 50 ng/mL. Performed By: #### U TOX2 ####[facility] LABCLIA [id number] [place] [address] [place] Cocaine Ql (U) Negative Normal Negative [facility] Comment on above: Order Comment: Speci men Type: URINE SPECIMENOrdering Facility: [facility] Address: [address] [place] [address] Result Comment: Cuto ff threshold at 300 ng/mL. Performed By: #### U TOX2 ####[facility] LABCLIA [id number] [place] [address] [place] Ethanol (U) [Mass/Vol] <11 Normal <11 Cl [facility] Comment on above: Order Comment: Speci men Type: URINE SPECIMENOrdering Facility: [facility] Address: [address] [place] [address] Performed By: #### U TOX2 ####[facility] LABCLIA [id number] [place] [address] [place] Opiates Screen Ql (U) Negative Normal Negative [facility] Comment on above: Order Comment: Speci men Type: URINE SPECIMENOrdering Facility: [facility] Address: [address] [place] [address] Result Comment: Cuto ff threshold at 300 ng/mL. Performed By: #### U TOX2 ####[facility] LABCLIA [id number] [place] [address] [place] oxyCODONE cutoff Screen (U) [Mass/Vol] Positive Abnormal Negative [facility] Comment on above: Order Comment: Speci men Type: URINE SPECIMENOrdering Facility: [facility] Address: [address] [place] [address] Result Comment: Cuto ff threshold at 100 ng/mL. Performed By: #### U TOX2 ####[facility] LABCLIA [id number] [place] [address] [place] Phencyclidine Ql (U) Negative Normal Negative [facility] Comment on above: Order Comment: Speci men Type: URINE SPECIMENOrdering Facility: [facility] Address: [address] [place] [address] Result Comment: Cuto ff threshold at 25 ng/mL. Performed By: #### U TOX2 ####[facility] LABCLIA [id number] [place] [address] [place] TYPE + SCREENon 11-12-2024 ABO O Normal [facility] Comment on above: Order Comment: Speci men Type: BLOOD SPECIMENOrdering Facility: [facility] Address: [address] [place] [address] Performed By: #### T SCR ####[facility] BLOOD BANKIA [id number] [place] [address] [place] Rh Nom (Bld) Positive Normal [facility] Comment on above: Order Comment: Speci men Type: BLOOD SPECIMENOrdering Facility: [facility] Address: [address] [place] [address] Performed By: #### T SCR ####[facility] BLOOD BANKIA [id number] [place] [address] [place] TYPE AND SCREEN EXPIRATION 11/15/2024 23:59 Normal [facility] Comment on above: Order Comment: Speci men Type: BLOOD SPECIMENOrdering Facility: [facility] Address: [address] [place] [address] Performed By: #### T SCR ####[facility] BLOOD BANKIA [id number] [place] [address] [place] Urinalysis complete panel (U )on 11-12-2024 BACTERIA UL 1553.2 uL High Negative [facility] Comment on above: Order Comment: Speci men Type: URINE SPECIMENOrdering Facility: [facility] Address: [address] [place] [address] Performed By: #### 6 30-4, 67518-0 ####[facility] LABCLIA [id number] [place] [address] [place] Bilirubin Ql (U) 1+ Abnormal Negative [facility] Comment on above: Order Comment: Speci men Type: URINE SPECIMENOrdering Facility: [facility] Address: [address] [place] [address] Result Comment: Sugg est correlation with clinical findings and serum bilirubin if clinically indicated. Performed By: #### 6 30-4, 35965-6 ####[facility] LABCLIA [id number] [place] [address] [place] Clarity (Unsp spec) Cloudy Abnormal Clear [facility] Comment on above: Order Comment: Speci men Type: URINE SPECIMENOrdering Facility: [facility] Address: [address] [place] [address] Performed By: #### 6 30-4, 28919-4 ####[facility] LABCLIA [id number] [place] [address] [place] Color (U) [place] Abnormal Yellow [facility] Comment on above: Order Comment: Speci men Type: URINE SPECIMENOrdering Facility: [facility] Address: [address] [place] [address] Performed By: #### 6 30-4, 57109-1 ####[facility] LABCLIA [id number] [place] [id number] [place] Epithelial cells LM.HPF (Urine sed) [#/Area] None Seen Normal [facility] Comment on above: Order Comment: Speci men Type: URINE SPECIMENOrdering Facility: [facility] Address: [address] [place] [address] Performed By: #### 6 30-4, 23073-1 ####[facility] LABCLIA [id number] [address] [place] [address] [place] Glucose Test strip (U) [Mass/Vol] Negative Normal Negative [facility] Comment on above: Order Comment: Speci men Type: URINE SPECIMENOrdering Facility: [facility] Address: [address] [place] [address] Performed By: #### 6 30-4, 68030-1 ####[facility] LABCLIA [id number] [facility] [address] [place] [address] [place] Hemoglobin Ql (U) 3+ Abnormal Negative [facility] Comment on above: Order Comment: Speci men Type: URINE SPECIMENOrdering Facility: [facility] Address: [address] [place] [address] Performed By: #### 6 30-4, 78192-1 ####[facility] LABCLIA [id number] [facility] [address], [facility] [place] Hyaline casts (Urine sed) [#/Area] 0 /[LPF] Normal 0 /LPF [facility] Comment on above: Order Comment: Speci men Type: URINE SPECIMENOrdering Facility: [facility] Address: [address] [place] [address] Performed By: #### 6 30-4, 31027-2 ####[facility] LABCLIA [id number] [facility] [address] [place] [address] [place] Ketones Ql (U) Negative Normal Negative [facility] Comment on above: Order Comment: Speci men Type: URINE SPECIMENOrdering Facility: [facility] Address: [address] [place], [place] [address] Performed By: #### 6 30-4, 01131-9 ####[facility] LABCLIA [id number] [facility] [address] [place] [address] [place] Leukocyte esterase Test strip Ql (U) 2+ Abnormal Negative [facility] Comment on above: Order Comment: Speci men Type: URINE SPECIMENOrdering Facility: [facility] Address: [address] [place] [address] Performed By: #### 6 30-4, 51079-3 ####[facility] LABCLIA [id number] [address], [place] [address] [place] Nitrite Ql (U) Negative Normal Negative [facility] Comment on above: Order Comment: Speci men Type: URINE SPECIMENOrdering Facility: [facility] Address: [address] [place] [address] Performed By: #### 6 30-4, 21523-1 ####[facility] LABCLIA [id number] [address], [place] [address] [place] pH (U) 6.0 [pH] Normal <8.5 [facility] Comment on above: Order Comment: Speci men Type: URINE SPECIMENOrdering Facility: [facility] Address: [address] [place] [address] Performed By: #### 6 30-4, 59611-7 ####[facility] LABIA [id number] [address], [place] [address] [place] Protein (U) [Mass/Vol] 3+ Abnormal Negative Cl [facility] Comment on above: Order Comment: Speci men Type: URINE SPECIMENOrdering Facility: [facility] Address: [address] [place] [address] Performed By: #### 6 30-4, 16202-8 ####[facility] LABIA [id number] [address], [facility]95 [place] RBC LM.HPF (Urine sed) [#/Area] /[HPF] Abnormal 0-2 /HPF [facility] Comment on above: Order Comment: Speci men Type: URINE SPECIMENOrdering Facility: [facility] Address: [address] [place] [address] Performed By: #### 6 30-4, 29031-2 ####[facility] LABIA [id number] [place] [id number] [place] Specific gravity (U) [Rel density] 1.019 Normal 1.005-1.030 [facility] Comment on above: Order Comment: Speci men Type: URINE SPECIMENOrdering Facility: [facility] Address: [address] [place] [address] Performed By: #### 6 30-4, 20836-5 ####[facility] LABIA [id number] [place] [address] [place] Urobilinogen Ql (U) 0.2 EU/dL Normal 0.2-1.0 EU/dL [facility] Comment on above: Order Comment: Speci men Type: URINE SPECIMENOrdering Facility: [facility] Address: [address] [place] [address] Performed By: #### 6 30-4, 43873-6 ####[facility] [id number] [place] [address] [place] WBC LM.HPF (Urine sed) [#/Area] /[HPF] Abnormal 0-5 /HPF [facility] Comment on above: Order Comment: Speci men Type: URINE SPECIMENOrdering Facility: [facility] Address: [address] [place] [address] Performed By: #### 6 30-4, 89041-4 ####[facility] [id number] [place] [address] [place] ALLIED HEALTHon 11-11-2024 ALLIED HEALTH Normal [facility] ALLIED HEALTH Normal [facility] ANTI PLT FACTOR 4 ABon 11-11 Heparin induced platelet IgG Marco Antonio (S) [Interp] Negative Normal Negative [facility] Comment on above: Order Comment: Speci men Type: BLOOD SPECIMENOrdering Facility: [facility] Address: [address] [place] [address] Result Comment: No a nti-platelet factor 4 IgG antibody is detected by ANDERS assay.Heparin-induced thrombocytopenia (HIT) is unlikely, but should be excluded based on clinical factors. Performed By: #### P LATF4 ####[facility] LABIA [id number] [address] [place] Platelet factor 4 Qn (PPP) 0.184 OD Normal <0.400 [facility] Comment on above: Order Comment: Speci men Type: BLOOD SPECIMENOrdering Facility: [facility] Address: [address] [place] [address] Result Comment: Not calculated Performed By: #### P LATF4 ####[facility] LABIA [id number] [place] [address] [place] Album[facility] Albumin (Body fld) [Mass/Vol] <0.2 Normal See Comment [facility] Comment on above: Order Comment: Speci men Type: FLUID SPECIMENOrdering Facility: [facility] Address: [address] [place] [address] Result Comment: Body Fluid Albumin may be [...] document C49A. Joe PA: Clinical Laboratory Standards [place]: 2007.2. Amy JACKSON. Serum to ascites albumin gradient. UpToDate. 2015. Accessed on November 15, 2015.This test was developed, and its performance characteristics determined by the [facility] Department of Pathology and Laboratory Medicine. It has not been cleared or approved by the FDA. The [facility] Department of Pathology and Laboratory Medicine is regulated under CLIA as qualified to perform high-complexity testing. This test is used for clinical purposes. It should not be regarded as investigational or for research. Performed By: #### 1 747-5, 1795-4, 57494-3, 2881-1 ####[facility] LABCLIA [id number] [place] [address] [place] Fluid Nom (Body fld) Abdomen Normal [facility] Comment on above: Order Comment: Speci men Type: FLUID SPECIMENOrdering Facility: [facility] Address: [address] [place] [address] Performed By: #### 1 747-5, 1795-4, 33934-0, 2881-1 ####[facility] LABCLIA [id number] [address] [place] Amylase Fld-cCncon 5 Amylase (Body fld) [Catalytic activity/Vol] 14 U/L Normal See Comment [facility] Comment on above: Order Comment: Speci men Type: FLUID SPECIMENOrdering Facility: [facility] Address: [address] [place] [address] Result Comment: PLEU RAL FLUIDS:Amylase measurement in [...] document C49-A. PAULETTE Diaz: Clinical Laboratory Standards [place]; 2007.3. Odalys Saenzarenhas RC, Star DJ. Use of cyst fluid CEA, CA19-9, and amylase for evaluation of pancreatic lesions. Clinical Biochemistry. 2009;42:2958-9451.This test was developed, and its performance characteristics determined by the [facility] Department of Pathology and Laboratory Medicine. It has not been cleared or approved by the FDA. The [facility] Department of Pathology and Laboratory Medicine is regulated under CLIA as qualified to perform high-complexity testing. This test is used for clinical purposes. It should not be regarded as investigational or for research. Performed By: #### 1 747-5, 1795-4, 63504-5, 2881-1 ####[facility] LABCLIA [id number] [place] [address] [place] Antithrombin Ag actual/philly l IA (PPP) [Relative mass conc]on 11-11-2024 Antithrombin Ag IA Qn (PPP) 32 % Low 80-120 [facility] Comment on above: Order Comment: Speci men Type: BLOOD SPECIMENOrdering Facility: [facility] Address: [address] [place] [address] Performed By: #### L [id number], HCOAG, 6303-2, 36710-9, 37386-1 ####[facility] LABCLIA [id number] [place] [address] [place] BODY FLUID CELL COUNTon 11-02 Clarity (Unsp spec) Clear Normal Clear [facility] Comment on above: Order Comment: Speci men Type: FLUID SPECIMENOrdering Facility: [facility] Address: [address] [place] [address] Performed By: #### C CBF, [id number] ####[facility] LABIA [id number] [place] [address] [place] Color (Body fld) Colorless Normal Yellow [facility] Comment on above: Order Comment: Speci men Type: FLUID SPECIMENOrdering Facility: [facility] Address: [address] [place] [address] Performed By: #### C CBF, [id number] ####[facility] LABCLIA [id number] [place] [address] [place] RBC Manual cnt (Body fld) [#/Vol] 2000 /uL High <2000 [facility] Comment on above: Order Comment: Speci men Type: FLUID SPECIMENOrdering Facility: [facility] Address: [address] [place] [address] Performed By: #### C CBF, [id number] ####[facility] LABCLIA [id number] [place] [address] [place] Specimen source Nom (Body fld) Abdomen Normal [facility] Comment on above: Order Comment: Speci men Type: FLUID SPECIMENOrdering Facility: [facility] Address: [address] [place] [address] Performed By: #### C CBF, [id number] ####[facility] LABCLIA [id number] [place] [address] [place] WBC Manual cnt (Body fld) [#/Vol] 70 /uL Normal <1000 [facility] Comment on above: Order Comment: Speci men Type: FLUID SPECIMENOrdering Facility: [facility] Address: [address] [place] [address] Performed By: #### C CBF, [id number] ####[facility] LABCLIA [id number] [place] [address] [place] Bacteria Bld Culton 11-12-19 25 Bacteria identified Cx Nom (Bld) CULTURE, BLOOD: No growth 5 days GRAM STAIN: This blood culture had less than the recommended 8 ml per bottle, which could decrease the sensitivity of the test. Normal [facility] Comment on above: Performed By: #### 6 00-7 ####[facility] LABCLIA [id number] [place] [place] [address] [place] Bacteria identified Cx Nom (Bld) CULTURE, BLOOD: No growth 5 days Normal [facility] Comment on above: Performed By: #### 6 00-7 ####[facility] LABCLIA [id number] [address] [address] [place] Bacteria Fld Culton 11-12-19 25 Bacteria identified Cx Nom (Body fld) CULTURE, BODY FLD: No growth GRAM STAIN: No organisms seen Many Polymorphonuclear leukocytes Gram stain performed on cytospun specimen. Gram stain from primary specimen Normal [facility] Comment on above: Performed By: #### 6 35-3, 611-4 ####[facility] LABCLIA [id number] [address] [address] [place] Bacteria Spec Anaerobe Culto n 11-11-2024 Bacteria identified Anaer cx Nom (Unsp spec) Negative Normal [facility] Comment on above: Performed By: #### 6 35-3, 611-4 ####[facility] LABCLIA [id number] [address] [address] [place] Basic metabolic 2000 panelon 11-11-2024 Anion gap [Moles/Vol] 12 mmol/L Normal 8-15 [facility] Comment on above: Order Comment: Speci men Type: BLOOD SPECIMENOrdering Facility: [facility] Address: [address] [place] [address] Performed By: #### 2 276-4, 95476-3, 87971-5, 78732-3, 2777-1, 95748-9 ####[facility] LABIA [id number] [address] [address] [place] Calcium [Mass/Vol] 9.1 mg/dL Normal 8.5-10.2 [facility] Comment on above: Order Comment: Speci men Type: BLOOD SPECIMENOrdering Facility: [facility] Address: [address] [place] [address] Performed By: #### 2 276-4, 96323-2, 15288-1, 92792-3, 2777-1, 91475-2 ####[facility] LABCLIA [id number] [address] [address] [place] Chloride [Moles/Vol] 97 mmol/L Low 98-107 [facility] Comment on above: Order Comment: Speci men Type: BLOOD SPECIMENOrdering Facility: [facility] Address: [address] [place] [address] Performed By: #### 2 276-4, 92328-2, 01871-6, 23150-9, 7-1, 43475-1 ####[facility] LABCLIA [id number] [place] [id number] [place] CO2 [Moles/Vol] 14 mmol/L Low 22-30 [facility] Comment on above: Order Comment: Speci men Type: BLOOD SPECIMENOrdering Facility: [facility] Address: [address] [place] [address] Performed By: #### 2 276-4, 86038-2, 36493-1, 35824-8, 7-1, 17243-8 ####[facility] LABIA [id number] [place] [id number] [place] Creatinine [Mass/Vol] 1.35 mg/dL High 0.73-1.22 [facility] Comment on above: Order Comment: Speci men Type: BLOOD SPECIMENOrdering Facility: [facility] Address: [address] [place] [address] Performed By: #### 2 276-4, 64049-1, 84310-2, 74601-9, 7-1, 69092-2 ####[facility] LABIA [id number] [place] [id number] [place] Creatinine and Glomerular filtration rate.predicted panel (S/P/Bld) 61 mL/min/1.73m??? Normal >=60 [facility] Comment on above: Order Comment: Speci men Type: BLOOD SPECIMENOrdering Facility: [facility] Address: [address] [place] [address] Result Comment: Patric mated Glomerular Filtration Rate [...] actual GFR. Performed By: #### 2 276-4, 59398-4, 69211-8, 51715-3, 2776-1, 69970-8 ####[facility] LABIA [id number] [place] [id number] [place] Glucose [Mass/Vol] 292 mg/dL High 74-99 [facility] Comment on above: Order Comment: Ezekiel ramirez Type: BLOOD SPECIMENOrdering Facility: [facility] Address: [address] [place] [address] Result Comment: The [place] Diabetes Association (ADA) provides guidance for cutoff [...] Standards of Medical Care in Diabetes 2016, [place] [employer]. Diabetes Care. 2016.39(Suppl 1). Performed By: #### 2 276-4, 98726-3, 45238-2, 15020-0, 2776-1, 62586-6 ####[facility] LABCLIA [id number] [address] [address] [place] Potassium [Moles/Vol] 3.6 mmol/L Low 3.7-5.1 [facility] Comment on above: Order Comment: Speci men Type: BLOOD SPECIMENOrdering Facility: [facility] Address: [address] [place] [address] Performed By: #### 2 276-4, 69352-8, 32248-3, 37948-0, 2777-1, 89782-5 ####[facility] LABIA [id number] [place] [id number] [place] Sodium [Moles/Vol] 123 mmol/L Low 136-144 [facility] Comment on above: Order Comment: Speci men Type: BLOOD SPECIMENOrdering Facility: [facility] Address: [address] [place] [address] Performed By: #### 2 276-4, 79149-1, 58847-0, 28950-7, 2777-1, 62063-2 ####[facility] LABIA [id number] [place] [address] [place] Urea nitrogen [Mass/Vol] 22 mg/dL Normal 9-24 [facility] Comment on above: Order Comment: Speci men Type: BLOOD SPECIMENOrdering Facility: [facility] Address: [address] [place] [address] Performed By: #### 2 276-4, 84233-7, 01002-6, 85011-6, 2777-1, 58652-2 ####[facility] [id number] [place] [address] [place] CARDIOLIPIN IGG ABSon 2024 Cardiolipin IgG IA Qn (S) <9.0 Normal <15.0 [facility] Comment on above: Order Comment: Speci men Type: BLOOD SPECIMENOrdering Facility: [facility] Address: [address] [place] [address] Result Comment: <15 GPL [id number] GPL Indeterminate>20 GPL PositiveThe following results were obtained with the [employer] QUANT[employer] L[employer] TEZ IgG III ANDERS. Cardiolipin IgG values obtained with the different manufacturers' assay methods may not be used interchangeably. The magnitude of the reported IgG levels cannot be correlated to an endpoint titer. Performed By: #### 5 076-5KATHI CARDIM ####[facility]IA [id number] [address] [place] CARDIOLIPIN IGM ABSon 2024 Cardiolipin IgM IA Qn (S) <9.0 Normal <12.5 [facility] Comment on above: Order Comment: Speci men Type: BLOOD SPECIMENOrdering Facility: [facility] Address: [address] [place] [address] Result Comment: <12. 5 MPL Atrsoere93.5-20 MPL Indeterminate>20 MPL PositiveThe following results were obtained with the OptiNoseA Lite TEZ IgM III ANDERS. Cardiolipin IgM values obtained with the different manufacturers' assay methods may not be used interchangeably. The magnitude of the reported IgM levels cannot be correlated to an endpoint titer.??? Performed By: #### 5 076-5KATHI CARDIM ####[facility] [id number] [place] [address] [place] CASE MANAGEMon 11-11-2024 CASE MANAGEM Normal [facility] CBC W Auto Differential pane l (Bld)on 11-11-2024 Basophils (Bld) [#/Vol] 0.04 10*3/uL Normal <0.11 [facility] Comment on above: Order Comment: Speci men Type: BLOOD SPECIMENOrdering Facility: [facility] Address: [address] [place] [address] Performed By: #### I PFR, 42648-0, 23566-0 ####[facility] [id number] [place] [address] [place] Basophils/100 WBC (Bld) 0.4 % Normal [facility] Comment on above: Order Comment: Speci men Type: BLOOD SPECIMENOrdering Facility: [facility] Address: [address] [place] [address] Performed By: #### I PFR, 32174-2, ####[facility] LABCLIA [id number] [place] [address] [place] Differential cell count method Nom (Bld) Auto Normal [facility] Comment on above: Order Comment: Speci men Type: BLOOD SPECIMENOrdering Facility: [facility] Address: [address] [place] [address] Performed By: #### I PFR, 52791-5, ####[facility]CLIA [id number] [place] [address] [place] Eosinophils (Bld) [#/Vol] 0.35 10*3/uL Normal <0.46 [facility] Comment on above: Order Comment: Speci men Type: BLOOD SPECIMENOrdering Facility: [facility] Address: [address] [place] [address] Performed By: #### I PFR, 99372-9, ####[facility]CLIA [id number] [place] [address] [place] Eosinophils/100 WBC (Bld) 3.4 % Normal [facility] Comment on above: Order Comment: Speci men Type: BLOOD SPECIMENOrdering Facility: [facility] Address: [address] [place] [address] Performed By: #### I PFR, 06801-8, ####[facility]CLIA [id number] [place] [address] [place] Erythrocyte distribution width (RBC) [Ratio] 17.4 % High 11.5-15.0 [facility] Comment on above: Order Comment: Speci men Type: BLOOD SPECIMENOrdering Facility: [facility] Address: [address] [place] [address] Performed By: #### I PFR, 42971-6, ####[facility]CLIA [id number] [place] [address] [place] Hematocrit (Bld) [Volume fraction] 24.6 % Low 39.0-51.0 [facility] Comment on above: Order Comment: Speci men Type: BLOOD SPECIMENOrdering Facility: [facility] Address: [address] [place] [address] Performed By: #### I PFR, 45599-3, 86920-3 ####[facility]CLIA [id number] [place] [address] [place] Hemoglobin (Bld) [Mass/Vol] 8.4 g/dL Low 13.0-17.0 [facility] Comment on above: Order Comment: Speci men Type: BLOOD SPECIMENOrdering Facility: [facility] Address: [address] [place] [address] Performed By: #### I PFR, 39296-4, 87600-5 ####[facility]CLIA [id number] [place] [address] [place] Immature granulocytes (Bld) [#/Vol] 0.08 10*3/uL Normal <0.10 [facility] Comment on above: Order Comment: Speci men Type: BLOOD SPECIMENOrdering Facility: [facility] Address: [address] [place] [address] Performed By: #### I PFR, 74452-6, 09237-5 ####[facility]CLIA [id number] [place] [address] [place] Immature granulocytes/100 WBC (Bld) 0.8 % Normal [facility] Comment on above: Order Comment: Speci men Type: BLOOD SPECIMENOrdering Facility: [facility] Address: [address] [place] [address] Performed By: #### I PFR, 31635-0, 72743-6 ####[facility] LABCLIA [id number] [place] [id number] [place] Lymphocytes (Bld) [#/Vol] 0.99 10*3/uL Low 1.00-4.00 [facility] Comment on above: Order Comment: Speci men Type: BLOOD SPECIMENOrdering Facility: [facility] Address: [address] [place] [address] Performed By: #### I PFR, 52603-7, 80165-8 ####[facility] LABCLIA [id number] [address] [place] Lymphocytes/100 WBC (Bld) 9.5 % Normal [facility] Comment on above: Order Comment: Speci men Type: BLOOD SPECIMENOrdering Facility: [facility] Address: [address] [place] [address] Performed By: #### I PFR, 54601-8, 05023-4 ####[facility]CLIA [id number] [address] [place] MCH (RBC) [Entitic mass] 31.9 pg Normal 26.0-34.0 [facility] Comment on above: Order Comment: Speci men Type: BLOOD SPECIMENOrdering Facility: [facility] Address: [address] [place] [address] Performed By: #### I PFR, 43734-8, 03770-5 ####[facility]CLIA [id number] [address] [place] MCHC (RBC) [Mass/Vol] 34.1 g/dL Normal 30.5-36.0 [facility] Comment on above: Order Comment: Speci men Type: BLOOD SPECIMENOrdering Facility: [facility] Address: [address] [place] [address] Performed By: #### I PFR, 60007-9, 30003-7 ####[facility]CLIA [id number] [address] [place] MCV (RBC) [Entitic vol] 93.5 fL Normal 80.0-100.0 [facility] Comment on above: Order Comment: Speci men Type: BLOOD SPECIMENOrdering Facility: [facility] Address: [address] [place] [address] Performed By: #### I PFR, 56140-9, 70996-4 ####[facility] LABCLIA [id number] [facility] [place] [address] [place] Monocytes (Bld) [#/Vol] 0.97 10*3/uL High <0.87 [facility] Comment on above: Order Comment: Speci men Type: BLOOD SPECIMENOrdering Facility: [facility] Address: [address] [place] [address] Performed By: #### I PFR, 28858-3, ####[facility] LABCLIA [id number] [place] [address] [place] Monocytes/100 WBC (Bld) 9.3 % Normal [facility] Comment on above: Order Comment: Speci men Type: BLOOD SPECIMENOrdering Facility: [facility] Address: [address] [place] [address] Performed By: #### I PFR, 81845-6, 63650-4 ####[facility]CLIA [id number] [place] [address] [place] Neutrophils (Bld) [#/Vol] 8.00 10*3/uL High 1.45-7.50 [facility] Comment on above: Order Comment: Speci men Type: BLOOD SPECIMENOrdering Facility: [facility] Address: [address] [place] [address] Performed By: #### I PFR, 67400-8, 59534-0 ####[facility] LABCLIA [id number] [address] [address] [place] Neutrophils/100 WBC (Bld) 76.6 % Normal [facility] Comment on above: Order Comment: Speci men Type: BLOOD SPECIMENOrdering Facility: [facility] Address: [address] [place] [address] Performed By: #### I PFR, 28673-7, 36259-7 ####[facility] LABCLIA [id number] [place] [address] [place] Nucleated RBC (Bld) [#/Vol] 10*3/uL Normal <0.01 [facility] Comment on above: Order Comment: Speci men Type: BLOOD SPECIMENOrdering Facility: [facility] Address: [address] [place] [address] Performed By: #### I PFR, 90109-2, 25289-2 ####[facility] LABCLIA [id number] [place] [address] [place] Nucleated RBC/100 WBC (Bld) [Ratio] 0.0 /100 WBC Normal [facility] Comment on above: Order Comment: Speci men Type: BLOOD SPECIMENOrdering Facility: [facility] Address: [address] [place] [address] Performed By: #### I PFR, 61366-4, 68927-5 ####[facility] [id number] [place] [address] [place] Platelet mean volume (Bld) [Entitic vol] 11.5 fL Normal 9.0-12.7 [facility] Comment on above: Order Comment: Speci men Type: BLOOD SPECIMENOrdering Facility: [facility] Address: [address] [place] [address] Performed By: #### I PFR, 19276-7, 34593-2 ####[facility] [id number] [place] [address] [place] Platelets (Bld) [#/Vol] 43 10*3/uL Low 150-400 [facility] Comment on above: Order Comment: Speci men Type: BLOOD SPECIMENOrdering Facility: [facility] Address: [address] [place] [address] Performed By: #### I PFR, 42137-9, 64232-9 ####[facility] LABCLIA [id number] [place] [address] [place] RBC (Bld) [#/Vol] 2.63 10*6/uL Low 4.20-6.00 [facility] Comment on above: Order Comment: Speci men Type: BLOOD SPECIMENOrdering Facility: [facility] Address: [address] [place] [address] Performed By: #### I PFR, 82065-7, 98087-7 ####[facility] LABCLIA [id number] [place] [address] [place] WBC (Bld) [#/Vol] 10.43 10*3/uL Normal 3.70-11.00 [facility] Comment on above: Order Comment: Speci men Type: BLOOD SPECIMENOrdering Facility: [facility] Address: [address] [place] [address] Performed By: #### I PFR, 45727-5, 88283-7 ####[facility] LABCLIA [id number] [place] [address] [place] Basophils (Bld) [#/Vol] 0.06 10*3/uL Normal <0.11 [facility] Comment on above: Order Comment: Speci men Type: BLOOD SPECIMENOrdering Facility: [facility] Address: [address] [place] [address] Performed By: #### 5 5454-3, 00927-9 ####[facility]CLIA [id number] [place] [address] [place] Basophils/100 WBC (Bld) 0.4 % Normal [facility] Comment on above: Order Comment: Speci men Type: BLOOD SPECIMENOrdering Facility: [facility] Address: [address] [place] [address] Performed By: #### 5 5454-3, 19705-4 ####[facility]CLIA [id number] [place] [address] [place] Differential cell count method Nom (Bld) Auto Normal [facility] Comment on above: Order Comment: Speci men Type: BLOOD SPECIMENOrdering Facility: [facility] Address: [address] [place] [address] Performed By: #### 5 5454-3, 73718-8 ####[facility] LABCLIA [id number] [address], [place] [address] [place] Eosinophils (Bld) [#/Vol] 0.40 10*3/uL Normal <0.46 [facility] Comment on above: Order Comment: Speci men Type: BLOOD SPECIMENOrdering Facility: [facility] Address: [address] [place] [address] Performed By: #### 5 5454-3, 42901-3 ####[facility]CLIA [id number] [place] [address] [place] Eosinophils/100 WBC (Bld) 2.5 % Normal [facility] Comment on above: Order Comment: Speci men Type: BLOOD SPECIMENOrdering Facility: [facility] Address: [address] [place] [address] Performed By: #### 5 5454-3, 10822-3 ####[facility]CLIA [id number] [place] [address] [place] Erythrocyte distribution width (RBC) [Ratio] 18.0 % High 11.5-15.0 [facility] Comment on above: Order Comment: Speci men Type: BLOOD SPECIMENOrdering Facility: [facility] Address: [address] [place] [address] Performed By: #### 5 5454-3, 83297-7 ####[facility]CLIA [id number] [place] [address] [place] Hematocrit (Bld) [Volume fraction] 30.4 % Low 39.0-51.0 [facility] Comment on above: Order Comment: Speci men Type: BLOOD SPECIMENOrdering Facility: [facility] Address: [address] [place] [address] Performed By: #### 5 5454-3, 69176-6 ####[facility] LABCLIA [id number] [place] [address] [place] Hemoglobin (Bld) [Mass/Vol] 10.2 g/dL Low 13.0-17.0 [facility] Comment on above: Order Comment: Speci men Type: BLOOD SPECIMENOrdering Facility: [facility] Address: [address] [place] [address] Performed By: #### 5 5454-3, 64340-4 ####[facility]CLIA [id number] [place] [address] [place] Immature granulocytes (Bld) [#/Vol] 0.18 10*3/uL High <0.10 [facility] Comment on above: Order Comment: Speci men Type: BLOOD SPECIMENOrdering Facility: [facility] Address: [address] [place] [address] Performed By: #### 5 5454-3, 24764-4 ####[facility]CLIA [id number] [place] [address] [place] Immature granulocytes/100 WBC (Bld) 1.1 % Normal [facility] Comment on above: Order Comment: Speci men Type: BLOOD SPECIMENOrdering Facility: [facility] Address: [address] [place] [address] Performed By: #### 5 5454-3, 38934-4 ####[facility]CLIA [id number] [place] [address] [place] Lymphocytes (Bld) [#/Vol] 1.19 10*3/uL Normal 1.00-4.00 [facility] Comment on above: Order Comment: Speci men Type: BLOOD SPECIMENOrdering Facility: [facility] Address: [address] [place] [address] Performed By: #### 5 5454-3, 54191-7 ####[facility]IA [id number] [place] [address] [place] Lymphocytes/100 WBC (Bld) 7.6 % Normal [facility] Comment on above: Order Comment: Speci men Type: BLOOD SPECIMENOrdering Facility: [facility] Address: [address] [place] [address] Performed By: #### 5 5454-3, 12046-9 ####[facility] [id number] [place] [address] [place] MCH (RBC) [Entitic mass] 31.3 pg Normal 26.0-34.0 [facility] Comment on above: Order Comment: Speci men Type: BLOOD SPECIMENOrdering Facility: [facility] Address: [address] [place] [address] Performed By: #### 5 5454-3, 28278-2 ####[facility] [id number] [place] [address] [place] MCHC (RBC) [Mass/Vol] 33.6 g/dL Normal 30.5-36.0 [facility] Comment on above: Order Comment: Speci men Type: BLOOD SPECIMENOrdering Facility: [facility] Address: [address] [place] [address] Performed By: #### 5 5454-3, 93108-4 ####[facility] [id number] [place] [address] [place] MCV (RBC) [Entitic vol] 93.3 fL Normal 80.0-100.0 [facility] Comment on above: Order Comment: Speci men Type: BLOOD SPECIMENOrdering Facility: [facility] Address: [address] [place] [address] Performed By: #### 5 5454-3, 27367-9 ####[facility]CLIA [id number] [address] [address] [place] Monocytes (Bld) [#/Vol] 1.36 10*3/uL High <0.87 [facility] Comment on above: Order Comment: Speci men Type: BLOOD SPECIMENOrdering Facility: [facility] Address: [address] [place] [address] Performed By: #### 5 5454-3, 71567-1 ####[facility] [id number] [place] [address] [place] Monocytes/100 WBC (Bld) 8.6 % Normal [facility] Comment on above: Order Comment: Speci men Type: BLOOD SPECIMENOrdering Facility: [facility] Address: [address] [place] [address] Performed By: #### 5 5454-3, 09721-1 ####[facility] [id number] [place] [address] [place] Neutrophils (Bld) [#/Vol] 12.55 10*3/uL High 1.45-7.50 [facility] Comment on above: Order Comment: Speci men Type: BLOOD SPECIMENOrdering Facility: [facility] Address: [address] [place] [address] Performed By: #### 5 5454-3, 92414-1 ####[facility]CLIA [id number] [place] [id number] [place] Neutrophils/100 WBC (Bld) 79.8 % Normal [facility] Comment on above: Order Comment: Speci men Type: BLOOD SPECIMENOrdering Facility: [facility] Address: [address] [place] [address] Performed By: #### 5 5454-3, 56063-3 ####[facility] [id number] [address] [address] [place] Nucleated RBC (Bld) [#/Vol] 10*3/uL Normal <0.01 [facility] Comment on above: Order Comment: Speci men Type: BLOOD SPECIMENOrdering Facility: [facility] Address: [address] [place] [address] Performed By: #### 5 5454-3, 16962-4 ####[facility] [id number] [place] [id number] [place] Nucleated RBC/100 WBC (Bld) [Ratio] 0.0 /100 WBC Normal [facility] Comment on above: Order Comment: Speci men Type: BLOOD SPECIMENOrdering Facility: [facility] Address: [address] [place] [address] Performed By: #### 5 5454-3, 30464-8 ####[facility] [id number] [place] [address] [place] Platelet mean volume (Bld) [Entitic vol] 12.1 fL Normal 9.0-12.7 [facility] Comment on above: Order Comment: Speci men Type: BLOOD SPECIMENOrdering Facility: [facility] Address: [address] [place] [address] Performed By: #### 5 5454-3, 34933-8 ####[facility] [id number] [address] [address] [place] Platelets (Bld) [#/Vol] 52 10*3/uL Low 150-400 [facility] Comment on above: Order Comment: Speci men Type: BLOOD SPECIMENOrdering Facility: [facility] Address: [address] [place] [address] Result Comment: Resu lts checked and verified.No clot detected. Performed By: #### 5 5454-3, 11776-6 ####[facility]CLIA [id number] [place] [id number] [place] RBC (Bld) [#/Vol] 3.26 10*6/uL Low 4.20-6.00 [facility] Comment on above: Order Comment: Speci men Type: BLOOD SPECIMENOrdering Facility: [facility] Address: [address] [place] [address] Performed By: #### 5 5454-3, 27959-7 ####[facility]CLIA [id number] [place] [id number] [place] WBC (Bld) [#/Vol] 15.74 10*3/uL High 3.70-11.00 [facility] Comment on above: Order Comment: Speci men Type: BLOOD SPECIMENOrdering Facility: [facility] Address: [address] [place] [address] Performed By: #### 5 5454-3, 08822-1 ####[facility] [id number] [place] [address] [place] [facility] Carcinoembryonic Ag [Mass/Vol] 13.0 ng/mL High <=2.9 [facility] Comment on above: Order Comment: Speci men Type: BLOOD SPECIMENOrdering Facility: [facility] Address: [address] [place] [address] Result Comment: Carc inoembryonic antigen test is used as an aid in monitoring response to treatment or recurrence in patients with established colorectal, breast, lung, prostatic, pancreatic, and ovarian carcinomas. Clinical correlation is required.The Carcinoembryonic antigen test was performed using the [employer] DXI paramagnetic particle chemiluminescent immunoassay method. Results obtained with different assay methods or kits cannot be used interchangeably. Performed By: #### 2 039-6, 99371-7, 2532-0 ####[facility] [id number] [place] [id number] [place] COAG CORE PANEL BLDon 2024 aPTT Coag (PPP) [Time] 41.3 s High 23.0-32.4 [facility] Comment on above: Order Comment: Ezekiel ramirez Type: BLOOD SPECIMENOrdering Facility: [facility] Address: [address] [place] [address] Performed By: #### C ORPNL ####[facility]IA [id number] [address] STATES [place] [facility] Fibrinogen Coag (PPP) [Mass/Vol] 88 mg/dL Low 200-400 [facility] Comment on above: Order Comment: Ezekiel ramirez Type: BLOOD SPECIMENOrdering Facility: [facility] Address: [address] [place] [address] Result Comment: Sammichael le checked for clot.Result rechecked. Performed By: #### C ORPNL ####[facility] [id number] [address] INR Coag (PPP) [Relative time] 2.1 {INR} High 0.9-1.3 [facility] Comment on above: Order Comment: Ezekiel ramirez Type: BLOOD SPECIMENOrdering Facility: [facility] Address: [address] [place] [address] Result Comment: Sarah min K Antagonist (VKA) Therapeutic Range: INR 2 to 3 (Target INR of 2.5)Note: For patients treated with VKA drugs, such as warfarin, the [employer] 2012 Guideline recommends [...] al. Chest 2012, 141:7S-47SNishimura RA, et al. [facility] 2017, 70: 252-289 Performed By: #### C ORPNL ####[facility]CLIA [id number] [place] [id number] [place] PT Coag (PPP) [Time] 21.8 s High 9.7-13.0 [facility] Comment on above: Order Comment: Speci men Type: BLOOD SPECIMENOrdering Facility: [facility] Address: [address] [place] [address] Performed By: #### C ORPNL ####[facility] LABCLIA [id number] [place] [id number] [place] CONSULTon 11-11-2024 CONSULT Normal [facility] CONSULT Normal [facility] CRP SerPl-mCncon 11-11-2024 CRP [Mass/Vol] 0.5 mg/dL Normal <0.9 [facility] Comment on above: Order Comment: Speci men Type: BLOOD SPECIMENOrdering Facility: [facility] Address: [address] [place] [address] Performed By: #### D ASHLEY, 1986-12 ####[facility] LABCLIA [id number] [place] [address] [place] CYTOLOGY NON-GYNon AP DISCLAIMER Normal [facility] [facility] Comment on above: Order Comment: Speci men Type: FLUID SPECIMENOrdering Facility: [facility] Address: [address] [place] [address] Result Comment: Shellie pugh Developed Test (LDT) Disclaimer:Performance characteristics of immunohistochemical, immunofluorescent, and chromogenic in-situ hybridization tests have been determined by the performing laboratory within [facility]'s [facility]ology and Laboratory Medicine Department ([facility], [facility], [facility], [facility], [facility], [facility], or [facility]) in a manner consistent with [...] stain appropriately. Performed By: #### C YTONON ####[facility] LABCLIA [id number] [place] [id number] [place] CASE REPORT Normal [facility] Comment on above: Order Comment: Speci men Type: FLUID SPECIMENOrdering Facility: [facility] Address: [address] [place] [address] Result Comment: [facility] Cytology Report Case: [id number] Provider: Yaritza Juarez, Collected: 11/11/2024 05:14 PM APPLICATION ASSISTANT.CNPOrdering Location: [place] [address] Received: 11/11/2024 08:30 PMPathologist: Sameer Fournier MDSpecimen: Abdomen Performed By: #### C YTONON ####[facility] LABCLIA [id number] [place] [address] [place] CLINICAL HISTORY paracentesis fluid Normal [facility] Comment on above: Order Comment: Speci men Type: FLUID SPECIMENOrdering Facility: [facility] Address: [address] [place] [address] Performed By: #### C YTONON ####[facility] LABCLIA [id number] [address] [place] FINAL DIAGNOSIS Normal [facility] Comment on above: Order Comment: Speci men Type: FLUID SPECIMENOrdering Facility: [facility] Address: [address] [place] [address] Result Comment: A - Abdomen, Fluid Negative for malignant cells.The following cell blocks were associated with this case:A1\X09\Cell Block, Alcohol Fixed\X09\ at 1034 EDT Performed By: #### C YTONON ####[facility] LABCLIA [id number] [place] [address] [place] FINAL PERFORMING LAB Normal [facility] Comment on above: Order Comment: Speci men Type: FLUID SPECIMENOrdering Facility: [facility] Address: [address] [place] [address] Result Comment: Tech nical component, farm adviser screening performed at: [facility], [address] [place] [address] CLIA: [id number] interpretation performed at: [facility], [address] [place] [address] CLIA# [id number] Director: Titi Voss MD Performed By: #### C YTONON ####[facility] LABCLIA [id number] [address] [place] GROSS DESCRIPTION A. Abdomen Normal [facility] Comment on above: Order Comment: Speci men Type: FLUID SPECIMENOrdering Facility: [facility] Address: [address] [place] [address] Result Comment: 1450 cc opaque lexis fluid . ThinPrep and Cell Block prepared. Performed By: #### C YTONON ####[facility] LABCLIA [id number] [place] [address] [place] Cancer Ag19-9 SerPl-aCncon 0 11-11-2024 Cancer Ag 19-9 Qn <2.0 Normal <36.0 [facility] Comment on above: Order Comment: Speci men Type: BLOOD SPECIMENOrdering Facility: [facility] Address: [address] [place] [address] Result Comment: [facility] er antigen 19-9 test is used as an aid in monitoring response to treatment or recurrence in patients with established pancreatic, hepatobiliary, or gastrointestinal malignancies. Clinical correlation is required.The CA 19-9 Antigen test was performed using the [employer] DXI paramagnetic particle chemiluminescent immunoassay method. Results obtained with different assay methods or kits cannot be used interchangeably. Performed By: #### 2 039-6, 42975-5, 2532-0 ####[facility] LABIA [id number] [place] [address] [place] Cardiolipin IgA Ser IA-aCnco n 11-11-2024 Cardiolipin IgA IA Qn (S) 9.7 [APL'U] Normal <12.0 [facility] Comment on above: Order Comment: Speci men Type: BLOOD SPECIMENOrdering Facility: [facility] Address: [address] [place] [address] Result Comment: <12 APL [id number] APL Indeterminate>20 APL PositiveThe following results were obtained with the OptiNoseA ?e TEZ IgA III ANDERS. Cardiolipin IgA values obtained with the different manufacturers' assay methods may not be used interchangeably. The magnitude of the reported IgA levels cannot be correlated to an endpoint titer. Performed By: #### 5 076-5, MELVIN ARMENTA ####[facility]AL[facility] [id number] [place] [address] [place] DIRECT BILIRUBIN BLOODon Bilirubin.conjugated [Mass/Vol] 1.1 mg/dL High <0.3 [facility] Comment on above: Order Comment: Meggani james Type: BLOOD SPECIMENOrdering Facility: [facility] Address: [address] [place] [address] Performed By: #### D ASHLEY, 1986-12 ####[facility] [id number] [place] [address] [place] ECG COMPLETEon 11-11-2024 ECG COMPLETE Normal [facility] [id number] 11-11-2024 ECG01 Normal [facility] Ferritin SerPl-mCncon 2024 Ferritin [Mass/Vol] 82.4 ng/mL Normal 30.3-565.7 [facility] Comment on above: Order Comment: Speci men Type: BLOOD SPECIMENOrdering Facility: [facility] Address: [address] [place] [address] Performed By: #### 2 276-4, 38617-8, 59604-3, 04356-9, 2777-1, 40379-4 ####[facility] LABCLIA [id number] [place] [address] [place] Fibrinogen PPP-mCncon 2024 Fibrinogen Coag (PPP) [Mass/Vol] 90 mg/dL Low 200-400 [facility] Comment on above: Order Comment: Speci men Type: BLOOD SPECIMENOrdering Facility: [facility] Address: [address] [place] [address] Result Comment: Samp le checked for clot.Result rechecked. Performed By: #### 3 255-7, 37195-0 ####[facility] LABCLIA [id number] [address] [place] HISTORY PHYSICALon HISTORY PHYSICAL Normal [facility] HYPERCOAG PANELon 11-11-2024 Activated protein C resistance Coag (PPP) [Time ratio] 2.10 Ratio Normal >1.96 [facility] Comment on above: Order Comment: Speci men Type: BLOOD SPECIMENOrdering Facility: [facility] Address: [address] [place] [address] Performed By: #### L [id number], HCOAG, 6303-2, 19817-7, 61763-7 ####[facility] LABCLIA [id number] [place] [address] [place] Antithrombin actual/normal Chromogenic method (PPP) [Rel catalytic activity/Vol] 30 % Low 84-138 [facility] Comment on above: Order Comment: Speci men Type: BLOOD SPECIMENOrdering Facility: [facility] Address: [address] [place] [address] Performed By: #### L [id number], HCOAG, 6303-2, 01971-0, 97065-6 ####[facility] LABCLIA [id number] [address] [place] aPTT Coag (Bld) [Time] 47.9 s High 24.0-35.1 [facility] Comment on above: Order Comment: Speci men Type: BLOOD SPECIMENOrdering Facility: [facility] Address: [address] [place] [address] Performed By: #### L [id number], HCOAG, 6303-2, 55601-0, 80318-7 ####[facility] LABCLIA [id number] [place] [address] [place] aPTT W excess hexagonal phase phospholipid Coag (PPP) [Time] 36.5 seconds Normal 34.0-51.8 [facility] Comment on above: Order Comment: Speci men Type: BLOOD SPECIMENOrdering Facility: [facility] Address: [address] [place] [address] Performed By: #### L [id number], HCOAG, 6303-2, 22691-9, 46265-9 ####[facility] LABIA [id number] [place] [address] [place] aPTT-LA w 1:1 PNP Coag (PPP) [Time] 32.5 seconds Normal <33.2 [facility] Comment on above: Order Comment: Speci men Type: BLOOD SPECIMENOrdering Facility: [facility] Address: [address] [place] [address] Result Comment: This test was developed, and its performance characteristics determined by the [facility] Department of Pathology and Laboratory Medicine. It has not been cleared or approved by the FDA. The [facility] Department of Pathology and Laboratory Medicine is regulated under CLIA as qualified to perform high-complexity testing. This test is used for clinical purposes. It should not be regarded as investigational or for research. Performed By: #### L [id number], HCOAG, 6303-2, 50346-8, 37658-7 ####[facility] LABCLIA [id number] [place] [address] [place] Coagulation factor VIII activity actual/normal Coag (PPP) [Relative time] 332 % High 50-173 [facility] Comment on above: Order Comment: Speci men Type: BLOOD SPECIMENOrdering Facility: [facility] Address: [address] [place] [address] Performed By: #### L [id number], HCOAG, 6303-2, 00224-7, 29840-3 ####[facility] LABCLIA [id number] [place] [address] [place] Coagulation factor X activated act Coag Qn (PPP) <0.10 Normal <0.10 [facility] Comment on above: Order Comment: Speci men Type: BLOOD SPECIMENOrdering Facility: [facility] Address: [address] [place] [address] Result Comment: This test was developed, and its performance characteristics determined by the [facility] Department of Pathology and Laboratory Medicine. It has not been cleared or approved by the FDA. The [facility] Department of Pathology and Laboratory Medicine is regulated under CLIA as qualified to perform high-complexity testing. This test is used for clinical purposes. It should not be regarded as investigational or for research. Performed By: #### L [id number], HCOAG, 6303-2, 36099-7, 17869-7 ####[facility] LABCLIA [id number] [place] [address] [place] Delta dRVVT Coag (PPP) [Time diff] 2.2 delta seconds Normal <7.1 [facility] Comment on above: Order Comment: Speci men Type: BLOOD SPECIMENOrdering Facility: [facility] Address: [address] [place] [address] Performed By: #### L [id number], HCOAG, 6303-2, 36890-6, 63087-1 ####[facility] LABCLIA [id number] [place] [address] [place] dRVVT W excess hexagonal phase phospholipid actual/normal Coag (PPP) [Relative time] 34.3 seconds Normal 34.2-47.9 [facility] Comment on above: Order Comment: Speci men Type: BLOOD SPECIMENOrdering Facility: [facility] Address: [address] [place] [address] Performed By: #### L [id number], HCOAG, 6303-2, 99576-6, 69436-1 ####[facility] LABCLIA [id number] [place] [address] [place] Protein C actual/normal Coag (PPP) [Relative time] 24 % Low 76-147 [facility] Comment on above: Order Comment: Speci men Type: BLOOD SPECIMENOrdering Facility: [facility] Address: [address] [place] [address] Performed By: #### L [id number], HCOAG, 6303-2, 77898-5, 93678-2 ####[facility] LABCLIA [id number] [place] [address] [place] Protein S actual/normal Coag (PPP) [Relative time] 28 % Low 59-152 [facility] Comment on above: Order Comment: Speci men Type: BLOOD SPECIMENOrdering Facility: [facility] Address: [address] [place] [address] Performed By: #### L [id number], HCOAG, 6303-2, 55939-4, 02738-9 ####[facility] LABCLIA [id number] [place] [address] [place] Protein S Free Ag actual/normal IA (PPP) [Relative mass conc] 45 % Low 55-148 [facility] Comment on above: Order Comment: Speci men Type: BLOOD SPECIMENOrdering Facility: [facility] Address: [address] [place] [address] Performed By: #### L [id number], HCOAG, 6303-2, 18940-3, 90863-5 ####[facility] LABCLIA [id number] [place] [address] [place] Thrombin time Coag (PPP) [Time] 20.0 seconds High <18.6 [facility] Comment on above: Order Comment: Meggani james Type: BLOOD SPECIMENOrdering Facility: [facility] Address: [address] [place] [address] Performed By: #### L [id number], HCOAG, 6303-2, 75734-5, 21950-9 ####[facility] LABCLIA [id number] [facility] [address] HYPERCOAG PANEL INTERPon INTERPRETATION (HYPERCOAG) Normal [facility] Comment on above: Order Comment: Ezekiel james Type: BLOOD SPECIMENOrdering Facility: [facility] Address: [address] [place], [place] [address] [address] Result Comment: Abno rmal - see comment [...] negative for the c.*97G>A variant (legacy name 71837H>A) in the 3' untranslated region of the [...] phase phospholipid neutralization. Performed By: #### L [id number], HCOAG, 6303-2, 18699-4, 41705-5 ####[facility] LABCLIA [id number] [place] [address] [place] Pathologist name Reviewed by Julia Howell M.D., Ph.D Normal [facility] Comment on above: Order Comment: Speci men Type: BLOOD SPECIMENOrdering Facility: [facility] Address: [address] [place] [address] Performed By: #### L [id number], HCOAG, 6303-2, 41735-8, 50219-7 ####[facility] LABCLIA [id number] [place] [id number] [place] Haptoglob SerPl-mCncon 11-11 Haptoglobin [Mass/Vol] 15 mg/dL Low 31-238 [facility] Comment on above: Order Comment: Ezekiel ramirez Type: BLOOD SPECIMENOrdering Facility: [facility] Address: [address] [place] [address] Performed By: #### 2 4362-6, 4542-7 ####[facility] LABIA [id number] [place] [address] [place] HbA1c (Bld)on 11-11-2024 Average glucose Estimated from glycated hemoglobin (Bld) [Mass/Vol] 154 mg/dL Normal [facility] Comment on above: Order Comment: Ezekiel [facility] Type: BLOOD SPECIMENOrdering Facility: [facility] Address: [address] [place] [address] Result Comment: eAG: (Estimated average glucose) is a calculated value from HgbA1c and is personal financial representative of the average blood glucose level in the last 2-3 month period. Performed By: #### 5 5454-3, 88931-0 ####[facility] LABCLIA [id number] [address] STATES [facility] HbA1c (Bld) [Mass fraction] 7.0 % High 4.3-5.6 [facility] Comment on above: Order Comment: Ezekiel ramirez Type: BLOOD SPECIMENOrdering Facility: [facility] Address: [address] [place] [address] Result Comment: Amer [place] Diabetes Association guidelines indicate that patients with HgbA1c in the range 5.7-6.4% are at increased risk for development of diabetes, and intervention by lifestyle modification may be beneficial. HgbA1c greater or equal to 6.5% is considered diagnostic of diabetes. Performed By: #### 5 5454-3, 27011-9 ####[facility] LABCLIA [id number] [address] [place] [address] [place] Hepatic function 2000 panelo n 11-11-2024 Albumin [Mass/Vol] 2.1 g/dL Low 3.9-4.9 [facility] Comment on above: Order Comment: Speci men Type: BLOOD SPECIMENOrdering Facility: [facility] Address: [address] [place] [address] Performed By: #### 2 276-4, 54702-0, 91668-5, 92503-6, 2777-1, 64076-8 ####[facility] LABCLIA [id number] [address] [place] [address] [place] ALP [Catalytic activity/Vol] 310 U/L High 38-113 [facility] Comment on above: Order Comment: Speci men Type: BLOOD SPECIMENOrdering Facility: [facility] Address: [address] [place] [address] Performed By: #### 2 276-4, 45876-4, 45328-0, 58314-6, 2777-1, 51342-0 ####[facility] LABIA [id number] [place] [id number] [place] ALT [Catalytic activity/Vol] 31 U/L Normal 10-54 [facility] Comment on above: Order Comment: Speci men Type: BLOOD SPECIMENOrdering Facility: [facility] Address: [address] [place] [address] Performed By: #### 2 276-4, 47445-0, 00204-9, 20151-7, 2777-1, 92885-3 ####[facility] LABCLIA [id number] [address] [address] [place] AST [Catalytic activity/Vol] 44 U/L High 14-40 [facility] Comment on above: Order Comment: Speci men Type: BLOOD SPECIMENOrdering Facility: [facility] Address: [address] [place] [address] Performed By: #### 2 276-4, 33813-8, 01476-9, 30817-4, 7-1, ####[facility] LABCLIA [id number] [address] [place] [address] [place] Bilirubin [Mass/Vol] 1.6 mg/dL High 0.2-1.3 [facility] Comment on above: Order Comment: Speci men Type: BLOOD SPECIMENOrdering Facility: [facility] Address: [address] [place] [address] Performed By: #### 2 276-4, 57875-5, 58865-4, 56898-6, 2776-1, ####[facility] LABIA [id number] [address] [place] [address] [place] Bilirubin.conjugated [Mass/Vol] 1.0 mg/dL High <0.3 [facility] Comment on above: Order Comment: Speci men Type: BLOOD SPECIMENOrdering Facility: [facility] Address: [address] [place] [address] Performed By: #### 2 276-4, 83859-2, 92163-0, 76595-1, 2776-1, ####[facility] LABIA [id number] [address] [place] [address] [place] Protein [Mass/Vol] 5.3 g/dL Low 6.3-8.0 [facility] Comment on above: Order Comment: Speci men Type: BLOOD SPECIMENOrdering Facility: [facility] Address: [address] [place], [place] [address] Performed By: #### 2 276-4, 09635-5, 51470-2, 96788-1, 2776-1, ####[facility] LABIA [id number] [address] [address] [place] IMMATURE PLATELET FRACTIONon 11-11-2024 Platelets reticulated/100 platelets Auto (Bld) 7.7 % High 0.9-7.2 [facility] Comment on above: Order Comment: Speci men Type: BLOOD SPECIMENOrdering Facility: [facility] Address: [address] [place] [address] Performed By: #### I PFR, 73921-0, 50892-5 ####[facility] LABCLIA [id number] [place] [address] [place] Iron and Iron binding capaci ty panelon 11-11-2024 Iron [Mass/Vol] 34 ug/dL Low 41-186 [facility] Comment on above: Order Comment: Speci men Type: BLOOD SPECIMENOrdering Facility: [facility] Address: [address] [place] [address] Performed By: #### 2 276-4, 05888-6, 01749-8, 74424-9, 2777-1, 74326-8 ####[facility] LABCLIA [id number] [address] [place] Iron binding capacity [Mass/Vol] 180 ug/dL Low 232-386 [facility] Comment on above: Order Comment: Speci men Type: BLOOD SPECIMENOrdering Facility: [facility] Address: [address] [place] [address] Performed By: #### 2 276-4, 37403-0, 09356-9, 33599-0, 7-1, 88301-4 ####[facility] LABCLIA [id number] [place] [address] [place] Iron/TIBC [Molar ratio] 18.9 % Normal 15.0-57.0 [facility] Comment on above: Order Comment: Speci men Type: BLOOD SPECIMENOrdering Facility: [facility] Address: [address] [place] [address] Performed By: #### 2 276-4, 40673-4, 88868-6, 97302-4, 7-1, 74112-5 ####[facility] LABCLIA [id number] [place] [address] [place] LDH SerPl[facility] 11-11-2024 LDH [Catalytic activity/Vol] 321 U/L High 135-225 [facility] Comment on above: Order Comment: Speci men Type: BLOOD SPECIMENOrdering Facility: [facility] Address: [address] [place] [address] Performed By: #### 2 039-6, 41344-1, 2532-0 ####[facility] [id number] [place] [address] [place] Lipase Fld-[facility] 11-11-2024 Lipase (Body fld) [Catalytic activity/Vol] 29 U/L Normal See Comment [facility] Comment on above: Order Comment: Speci men Type: FLUID SPECIMENOrdering Facility: [facility] Address: [address] [place] [address] Result Comment: Pleu ral fluids: Lipase measurement [...] document C49A. PAULETTE Diaz: Clinical Laboratory Standards [place]: 2007.2. David Guillory. A review of pancreatic cyst fluid analysis in the differential diagnosis of pancreatic cyst lesions. [employer] [employer] 2013:0:1-16. Performed By: #### 1 747-5, 1795-4, 65079-3, 2881-1 ####[facility] LABIA [id number] [place] [address] [place] Lupus anticoagulant neutrali zation platelet Coag Ql (PPP)on 11-11-2024 aPTT Coag (Bld) [Time] 56.8 s High 30.2-43.0 [facility] Comment on above: Order Comment: Speci james Type: BLOOD SPECIMENOrdering Facility: [facility] Address: [address] [place] [address] Result Comment: This test was developed, and its performance characteristics determined by the [facility] Department of Pathology and Laboratory Medicine. It has not been cleared or approved by the FDA. The [facility] Department of Pathology and Laboratory Medicine is regulated under CLIA as qualified to perform high-complexity testing. This test is used for clinical purposes. It should not be regarded as investigational or for research. Performed By: #### L [id number], HCOAG, 6303-2, 63859-5, 45676-6 ####[facility] LABCLIA [id number] [address] [address] [place] aPTT Coag (Bld) [Time] 36.5 s Normal 31.5-38.3 [facility] Comment on above: Order Comment: Speci men Type: BLOOD SPECIMENOrdering Facility: [facility] Address: [address] [place] [address] Result Comment: This test was developed, and its performance characteristics determined by the [facility] Department of Pathology and Laboratory Medicine. It has not been cleared or approved by the FDA. The [facility] Department of Pathology and Laboratory Medicine is regulated under CLIA as qualified to perform high-complexity testing. This test is used for clinical purposes. It should not be regarded as investigational or for research. Performed By: #### L [id number], HCOAG, 6303-2, 10803-4, 40558-2 ####[facility] LABCLIA [id number] [address] [address] [place] PLATELET NEUT 0.0 Seconds Normal <1.9 [facility] Comment on above: Order Comment: Speci james Type: BLOOD SPECIMENOrdering Facility: [facility] Address: [address] [place], [place] [address] Result Comment: This test was developed, and its performance characteristics determined by the [facility] Department of Pathology and Laboratory Medicine. It has not been cleared or approved by the FDA. The [facility] Department of Pathology and Laboratory Medicine is regulated under CLIA as qualified to perform high-complexity testing. This test is used for clinical purposes. It should not be regarded as investigational or for research. Performed By: #### L [id number], HCOAG, 6303-2, 71986-8, 21045-1 ####[facility] LABCLIA [id number] [facility] [address] [place] [address] [place] MANUAL DIFFERENTIAL, BODY FL UIDon 11-11-2024 DIF TTL, BODY FLUID 100 cells counted Normal [facility] Comment on above: Order Comment: Speci men Type: FLUID SPECIMENOrdering Facility: [facility] Address: [address] [place] [address] Performed By: #### C CBF, [id number] ####[facility] LABCLIA [id number] [facility] [address] [place] [address] [place] LYMPH%, BF 37 % High 18-36 [facility] Comment on above: Order Comment: Speci men Type: FLUID SPECIMENOrdering Facility: [facility] Address: [address] [place] [address] Performed By: #### C CBF, [id number] ####[facility] LABCLIA [id number] [facility] [address] [place] [address] [place] MACRO%, BF 21 % Low 64-80 [facility] Comment on above: Order Comment: Speci men Type: FLUID SPECIMENOrdering Facility: [facility] Address: [address] [place] [address] Performed By: #### C CBF, [id number] ####[facility] LABCLIA [id number] [facility] [address] [place] [address] [place] MESO %, BF 12 % High 0-2 [facility] Comment on above: Order Comment: Speci men Type: FLUID SPECIMENOrdering Facility: [facility] Address: [address] [place] [address] Performed By: #### C CBF, [id number] ####[facility] LABCLIA [id number] [place] [address] [place] NEUT%, BF 26 % High 0-1 [facility] Comment on above: Order Comment: Speci men Type: FLUID SPECIMENOrdering Facility: [facility] Address: [address] [place] [address] Performed By: #### C CBF, [id number] ####[facility] LABCLIA [id number] [place] [address] [place] REAC LYMPH %, BF 4 % Normal [facility] Comment on above: Order Comment: Speci men Type: FLUID SPECIMENOrdering Facility: [facility] Address: [address] [place] [address] Performed By: #### C CBF, [id number] ####[facility] LABIA [id number] [place] [address] [place] MEDICAL EMERon 11-11-2024 MEDICAL KRISTINA Normal [facility] MEDICAL KRISTINA Normal [facility] Magnesium SerPl-mCncon 11-11 Magnesium [Mass/Vol] 2.3 mg/dL Normal 1.7-2.3 [facility] Comment on above: Order Comment: Speci men Type: BLOOD SPECIMENOrdering Facility: [facility] Address: [address] [place] [address] Performed By: #### 2 276-4, 68599-6, 42968-0, 70475-3, 2777-1, 95122-9 ####[facility] LABIA [id number] [place] [address] [place] NURSING PROGon 11-11-2024 NURSING PROG Normal [facility] PLT DEP.AB, UNF. HEPARINon 0 11-11-2024 % REL HIGH DOSE HEP PORCINE 0 % Normal [facility] Comment on above: Order Comment: Speci men Type: BLOOD SPECIMENOrdering Facility: [facility] Address: [address] [place] [address] Performed By: #### S ERORE ####[facility] LABORATORIESCLIA [id number] [place] [address] % REL LOW DOSE HEP PORCINE 0 % Normal [facility] Comment on above: Order Comment: Speci men Type: BLOOD SPECIMENOrdering Facility: [facility] Address: [address] [place] [address] Performed By: #### S ERORE ####[facility] LABORATORIESCLIA [id number] [place] [address] SEROTONIN REL INTERP See Note Normal [facility] Comment on above: Order Comment: Speci men Type: BLOOD SPECIMENOrdering Facility: [facility] Address: [address] [place] [address] Result Comment: This patient's specimen demonstrates a [...] Additionalinformation regarding diagnosis of HIT is available Hoverink.Mobii.INTERPRETIVE INFORMATION: ABRAHAM, Unfractionated HeparinThis test was developed and its performance characteristicsdetermined by [facility]. It has not been cleared orapproved by the [place] Food and Drug Administration. This test wasperformed in a CLIA certified laboratory and is intended forclinical purposes.Performed By: [facility] [place], [place] [address] Director: Lizandro Ordonez MD, PhDCLIA Number: [id number] Performed By: #### S ERORE ####[facility] LABORATORIESCLIA [id number] [place] [address] ABRAHAM, UNFRACTIONATED HEPARIN Negative Normal Negative [facility] Comment on above: Order Comment: Speci men Type: BLOOD SPECIMENOrdering Facility: [facility] Address: [address] [place], [place] [address] Performed By: #### S [facility] ####[facility] [id number] [place] [address] PROTHROMBIN GENE PCRon 11-11 PROTHROMBIN GENE MUTATION Normal [facility] Comment on above: Order Comment: Speci men Type: BLOOD SPECIMENOrdering Facility: [facility] Address: [address] [place] [address] Result Comment: Prot hrombin Gene MutationLaboratory Accession Number: [id number]:NORMALInterpretation:The DNA sample is negative for the c.*97G>A variant (legacy xyjt15545Q>A) in the 3' untranslated region of the Factor II (F2) gene.This result is not associated with an increased risk of thromboembolicdisease. Thromboembolic disease is a multifactorial disorder and othercauses are not excluded by this result.Methodology:Isolated Genomic DNA from the patient's blood specimen is evaluatedfor the c*97G>A (g.[id number]) variant of the F2 gene [RefSeqNM_000506.53;GRCh38/hg38] by multiplex polymerase chain reaction (PCR)followed by melting curve analysis.Limitations:This assay is designed to detect the c.*97G>A (28186G>A) variant inthe F2 gene. Uncommon variants or single nucleotide polymorphisms mayaffect binding of probes and may rarely result in false negative,false positive or indeterminate results. This assay does not detectother disease-associated rare variants in F2 or other causes ofthromboembolic disease.Disclaimer:This test was developed and its performance characteristics determinedby [facility]'s [facility]. Ithas not been cleared or approved by the FDA. [facility]'s[facility] is regulated under CLIAas certified to perform high-complexity testing. This test is used forclinical purposes. It should not be regarded as investigational or forresearch.Test performed at [facility], [address] [place], [place] [id number]. CLIA Number: [id number]:1) Inheritied Thrombophilias in . ACOG Practice Bulletin. No.197. [place] [employer]. ObseteGynecol 2018;132:e18-34.2) Lindseyt SR, Kinsey FR, Jeremy PH, and Bernice RM. A commongenetic variation in the 3'-untranslated region of the prothrombingene is associated with elevated plasma prothrombin levels and anincrease in venous thrombosis. Blood 88:3698-703, 1995.3) Rica I, Justus V, Nayan C, Emily Carmona. Rrtgvljgpaq80121L>T: 16 new cases, association with the 62056U>G polymorphism,and literature review. J Thromb Haemost. 2009;9:1585-7.Interpretation performed at remote location (R0A1) by Fifi España MD Performed By: #### P TGEN ####[facility] [id number] [place] [address] [place] [facility] PT panel Coag (PPP)on 2024 INR Coag (PPP) [Relative time] 2.3 {INR} High 0.9-1.3 [facility] Comment on above: Order Comment: Speci men Type: BLOOD SPECIMENOrdering Facility: [facility] Address: [address] [place] [address] Result Comment: Sarah min K Antagonist (VKA) Therapeutic Range: INR 2 to 3 (Target INR of 2.5)Note: For patients treated with VKA drugs, such as warfarin, the [place] [employer] 2012 Guideline recommends [...] 2017, 70: 252-289 Performed By: #### P [facility], 76327-2 ####[facility] [id number] [place] [address] [place] PT Coag (PPP) [Time] 23.1 s High 9.7-13.0 [facility] Comment on above: Order Comment: Speci men Type: BLOOD SPECIMENOrdering Facility: [facility] Address: [address] [place] [address] Performed By: #### P [facility], 66015-3 ####[facility] [id number] [place] [address] [place] INR Coag (PPP) [Relative time] 2.1 {INR} High 0.9-1.3 [facility] Comment on above: Order Comment: Speci men Type: BLOOD SPECIMENOrdering Facility: [facility] Address: [address] [place] [address] Result Comment: Sarah min K Antagonist (VKA) Therapeutic Range: INR 2 to 3 (Target INR of 2.5)Note: For patients treated with VKA drugs, such as warfarin, the [place] [employer] 2012 Guideline recommends [...] al. Chest 2012, 141:7S-47SNishimura RA, et al. [facility] 2017, 70: 252-289 Performed By: #### 3 4528-0 ####[facility] [id number] [place] [id number] [place] PT Coag (PPP) [Time] 22.0 s High 9.7-13.0 [facility] Comment on above: Order Comment: Speci men Type: BLOOD SPECIMENOrdering Facility: [facility] Address: [address] [place] [address] Performed By: #### 3 4528-0 ####[facility] LABCLIA [id number] [place] [address] [place] PTT, ANTICOAGULANT THERAPYon 11-11-2024 aPTT Coag (PPP) [Time] EXTREMELY ABNORMA L RESULT. No clot detected at 320 seconds. Refer to anticoagulation nomogram for further actions. Critically abnormal (none) [facility] Comment on above: Order Comment: Speci men Type: BLOOD SPECIMENOrdering Facility: [facility] Address: [address] [place] [address] Result Comment: Resu lt rechecked.Sample checked for clot. Performed By: #### P TTAC, 26343-4 ####[facility] LABCLIA [id number] [place] [address] [place] Phosphate SerPl-ncon 11-11 Phosphate [Mass/Vol] 2.6 mg/dL Low 2.7-4.8 [facility] Comment on above: Order Comment: Speci men Type: BLOOD SPECIMENOrdering Facility: [facility] Address: [address] [place] [address] Performed By: #### 2 276-4, 68827-5, 54391-6, 72339-1, 2777-1, 35293-3 ####[facility] LABIA [id number] [place] [address] [place] Prot Fld-mCncon 11-11-2024 Protein (Body fld) [Mass/Vol] 0.2 g/dL Normal See Comment [facility] Comment on above: Order Comment: Speci men Type: FLUID SPECIMENOrdering Facility: [facility] Address: [address] [place] [address] Result Comment: Sero us fluids: Effusions are [...] document C49A. PAULETTE Diaz: Clinical Laboratory Standards [place]: 2007. Performed By: #### 1 747-5, 1795-4, 77464-6, 2881-1 ####[facility] LABCLIA [id number] [place] [address] [place] Renal function 2000 panelon 11-11-2024 Albumin [Mass/Vol] 2.4 g/dL Low 3.9-4.9 [facility] Comment on above: Order Comment: Speci men Type: BLOOD SPECIMENOrdering Facility: [facility] Address: [address] [place] [address] Performed By: #### 2 4362-6, 4542-7 ####[facility] LABIA [id number] [place] [address] [place] Anion gap [Moles/Vol] 10 mmol/L Normal 8-15 [facility] Comment on above: Order Comment: Speci men Type: BLOOD SPECIMENOrdering Facility: [facility] Address: [address] [place] [address] Performed By: #### 2 4362-6, 4542-7 ####[facility] LABIA [id number] [place] [address] [place] Calcium [Mass/Vol] 9.3 mg/dL Normal 8.5-10.2 [facility] Comment on above: Order Comment: Speci men Type: BLOOD SPECIMENOrdering Facility: [facility] Address: [address] [place] [address] Performed By: #### 2 4362-6, 454-7 ####[facility] LABCLIA [id number] [place] [id number] [place] Chloride [Moles/Vol] 100 mmol/L Normal 98-107 [facility] Comment on above: Order Comment: Speci men Type: BLOOD SPECIMENOrdering Facility: [facility] Address: [address] [place] [address] Performed By: #### 2 4362-6, 4541-7 ####[facility] LABCLIA [id number] [place] [address] [place] CO2 [Moles/Vol] 13 mmol/L Low 22-30 [facility] Comment on above: Order Comment: Speci men Type: BLOOD SPECIMENOrdering Facility: [facility] Address: [address] [place] [address] Performed By: #### 2 4362-6, 454-7 ####[facility] LABCLIA [id number] [place] [address] [place] Creatinine [Mass/Vol] 1.26 mg/dL High 0.73-1.22 [facility] Comment on above: Order Comment: Speci men Type: BLOOD SPECIMENOrdering Facility: [facility] Address: [address] [place] [address] Performed By: #### 2 4362-6, 454-7 ####[facility] LABCLIA [id number] [place] [id number] [place] Creatinine and Glomerular filtration rate.predicted panel (S/P/Bld) 66 mL/min/1.73m??? Normal >=60 [facility] Comment on above: Order Comment: Speci men Type: BLOOD SPECIMENOrdering Facility: [facility] Address: [address] [place] [address] Result Comment: Patric mated Glomerular Filtration Rate [...] GFR. Performed By: #### 2 4362-6, 4542-7 ####[facility] LABIA [id number] [address] [address] [place] Glucose [Mass/Vol] 255 mg/dL High 74-99 [facility] Comment on above: Order Comment: Speci men Type: BLOOD SPECIMENOrdering Facility: [facility] Address: [address] [place] [address] Result Comment: The [place] Diabetes Association (ADA) provides guidance for cutoff [...] Standards of Medical Care in Diabetes 2016, [place] [employer] Association. Diabetes Care. 2016.39(Suppl 1). Performed By: #### 2 4362-6, 4541-7 ####[facility] LABIA [id number] [address] [address] [place] Phosphate [Mass/Vol] 2.5 mg/dL Low 2.7-4.8 [facility] Comment on above: Order Comment: Meggani men Type: BLOOD SPECIMENOrdering Facility: [facility] Address: [address] [place] [address] Performed By: #### 2 4362-6, 454-7 ####[facility] LABIA [id number] [place] [address] [place] Potassium [Moles/Vol] 4.4 mmol/L Normal 3.7-5.1 [facility] Comment on above: Order Comment: Speci men Type: BLOOD SPECIMENOrdering Facility: [facility] Address: [address] [place] [address] Performed By: #### 2 4362-6, 4542-7 ####[facility] LABCLIA [id number] [place] [address] [place] Sodium [Moles/Vol] 123 mmol/L Low 136-144 [facility] Comment on above: Order Comment: Speci men Type: BLOOD SPECIMENOrdering Facility: [facility] Address: [address] [place] [address] Performed By: #### 2 4362-6, 454-7 ####[facility] LABIA [id number] [place] [address] [place] Urea nitrogen [Mass/Vol] 21 mg/dL Normal 9-24 [facility] Comment on above: Order Comment: Speci men Type: BLOOD SPECIMENOrdering Facility: [facility] Address: [address] [place] [address] Performed By: #### 2 4362-6, 454-7 ####[facility] LABIA [id number] [place] [address] [place] Retics #on 11-11-2024 Reticulocytes (Bld) [#/Vol] 0.30024 10*3/uL High 0.018-0.100 [facility] Comment on above: Order Comment: Speci men Type: BLOOD SPECIMENOrdering Facility: [facility] Address: [address] [place] [address] Performed By: #### I PFR, 69473-9, 10723-3 ####[facility] LABIA [id number] [place] [address] [place] Reticulocytes (Bld) [#/Vol]o n 11-11-2024 Reticulocytes/100 RBC (Bld) 4.1 % High 0.4-2.0 [facility] Comment on above: Order Comment: Speci men Type: BLOOD SPECIMENOrdering Facility: [facility] Address: [address] [place] [address] Performed By: #### I PFR, 86878-9, 60805-8 ####[facility] LABCLIA [id number] [place] [address] [place] SEPSIS LACTATEon 11-11-2024 Lactate [Moles/Vol] 3.4 mmol/L High <=2.0 [facility] Comment on above: Order Comment: Speci men Type: BLOOD SPECIMENOrdering Facility: [facility] Address: [address] [place] [address] Performed By: #### S LACT ####[facility] LABIA [id number] [address] [facility] Lactate [Moles/Vol] 3.6 mmol/L High <=2.0 [facility] Comment on above: Order Comment: Speci men Type: BLOOD SPECIMENOrdering Facility: [facility] Address: [address] [place] [address] Performed By: #### S LACT ####[facility] [id number] [place] [address] [place] Screen dRVVTon 11-11-2024 dRVVT Coag (PPP) [Time] 42.6 s Normal 32.0-45.7 C [facility] Comment on above: Order Comment: Speci men Type: BLOOD SPECIMENOrdering Facility: [facility] Address: [address] [place] [address] Performed By: #### L [id number], HCOAG, 6303-2, 34657-4, 71895-2 ####[facility] LABCLIA [id number] [address] [address] [place] US ABD LIVER VASCULARon 04-1 US ABD LIVER VASCULAR Normal [facility] US DOPPLER COMPLETEon 2024 US DOPPLER COMPLETE Normal [facility] XR ABDOMEN 1V SUPINEon 11-11 XR ABDOMEN 1V SUPINE Normal [facility] XR CHEST 1V FRONTAL PORTon 0 11-11-2024 XR CHEST 1V FRONTAL PORT Normal [facility] XR CHEST 1V FRONTAL PORT Normal [facility] aPTT PPPon 11-11-2024 aPTT Coag (PPP) [Time] 41.7 s High 23.0-32.4 Cl [facility] Comment on above: Order Comment: Speci men Type: BLOOD SPECIMENOrdering Facility: [facility] Address: [address] [place] [address] Performed By: #### 3 255-7, 54083-9 ####[facility] LABCLIA [id number] [place] [address] [place] dRVVT Coag (PPP) [Time]on dRVVT factor substitution immediately after 1:2 addition of normal plasma Coag (PPP) [Time] 35.4 seconds Normal 32.0-45.7 [facility] Comment on above: Order Comment: Speci men Type: BLOOD SPECIMENOrdering Facility: [facility] Address: [address] [place] [address] Performed By: #### L [id number], HCOAG, 6303-2, 45232-7, 09294-1 ####[facility] LABCLIA [id number] [place] [address] [place] dRVVT/dRVVT.excess phospholipid Coag (PPP) [Ratio] 0.91 Normal <1.32 [facility] Comment on above: Order Comment: Speci men Type: BLOOD SPECIMENOrdering Facility: [facility] Address: [address] [place] [address] Performed By: #### L [id number], HCOAG, 6303-2, 76091-3, 66419-4 ####[facility] LABCLIA [id number] [place] [address] [place] ALP [Catalytic activity/Vol] Ordered By: Kathie Powers on 11-10-2024 Serum or plasma alkaline phosphatase measurement 310 U/L High 40-129 [facility] ALT [Catalytic activity/Vol] Ordered By: Kathie Powers on 11-10-2024 Serum or plasma alanine aminotransferase (ALT) measurement 36 U/L <47 [facility] Absolute lymphocyte countOrd ered By: Kathie Powers on 11-10-2024 Lymphocytes Auto (Unsp spec) [#/Vol] 1.30 10*3/uL 0.83-4.51 [facility] Absolute neutrophil countOrd ered By: Kathie Powers on 11-10-2024 Absolute neutrophil count 16.2 X10^3/uL High 2.0-7.7 [facility] Albumin [Mass/Vol]Ordered By : Kathie Powers on 11-10-2024 Serum or plasma albumin measurement (mass/volume) 2.3 g/dL Low 3.5-5.0 [facility] Albumin/Globulin [Mass ratio ]Ordered By: Kathie Powers on 11-10-2024 Serum or plasma albumin/globulin mass ratio 0.7 RATIO Low 0.9-2.4 [facility] Anion gap [Moles/Vol]Ordered By: Kathie Powers on 11-10-2024 Anion gap in Serum or Plasma 11 5-15 [facility] Anion gap in Serum or Plasma Ordered By: Kathie Powers on 11-10-2024 Anion gap [Moles/Vol] 11 mmol/L 5-15 [facility] Automated lymphocyte count a s percentage of total leukocytesOrdered By: Kathie Powers on 11-10-2024 Lymphocytes/100 WBC Auto (Unsp spec) 6.6 % Low 19-41 [facility] BUN/creatinine ratioOrdered By: Kathie Powers on 11-10-2024 Urea nitrogen/Creatinine [Mass ratio] 16.6 mg/mg 10-20 [facility] BUN/creatinine ratio 16.6 RATIO 10-20 [facility] Bacteria LM.HPF (Urine sed) [#/Area]Ordered By: Kathie Powers on 11-10-2024 Urine sediment bacteria count by microscopy (number/high power field) 2+ /hpf None Seen [facility] Basophil percentageOrdered B y: Kathie Powers on 11-10-2024 Basophils/100 WBC (Bld) 0.5 % 0-1 [facility] Basophil percentage 0.5 % 0-1 [facility] Bilirubin Test strip Ql (U)O rdered By: Kathie Powers on 11-10-2024 Bilirubin Ql (U) Negative Negative [facility] Urine total bilirubin detection by test strip Negative Negative [facility] Bilirubin, totalOrdered By: Kathie Powers on 11-10-2024 Bilirubin [Mass/Vol] 2.09 mg/dL High 0.00-1.30 [facility] Bilirubin, total 2.09 mg/dL High 0.00-1.30 [facility] Calcium [Mass/Vol]Ordered By : Kathie Powers on 11-10-2024 Serum or plasma calcium measurement (mass/volume) 9.2 mg/dL 7.6-11.0 [facility] Carbon dioxide, total [Moles /volume] in Central venous bloodOrdered By: Kathie Powers on 11-10-2024 CO2 [Moles/Vol] 13.3 mmol/L Low 21.0-32.0 [facility] Carbon dioxide, total [Moles/volume] in Central venous blood 13.3 mmol/L Low 21.0-32.0 [facility] Chloride assayOrdered By: Paulette Powers on 11-10-2024 Chloride [Moles/Vol] 99 mmol/L 98-108 [facility] Chloride assay 99 mmol/L 98-108 [facility] Clarity (U)Ordered By: Kathie Powers on 11-10-2024 Urine clarity Turbid Clear [facility] Color (U)Ordered By: Kathie lucas on 11-10-2024 Urine color determination Brown Yellow [facility] Creatinine [Mass/Vol]Ordered By: Kathie Powers on 11-10-2024 Serum creatinine measurement (mass/volume) 1.13 mg/dL 0.70-1.20 [facility] Eosinophil percentageOrdered By: Kathie Powers on 11-10-2024 Eosinophils/100 WBC (Bld) 1.9 % 0-5 [facility] Eosinophil percentage 1.9 % 0-5 [facility] Erythrocyte distribution wid th (RBC) [Ratio]Ordered By: Kathie Powers on 11-10-2024 Erythrocyte distribution width ratio 18.1 % High 11.6-14.6 [facility] Erythrocyte distribution width standard deviation 62.1 fl High 35.1-43.9 [facility] Erythrocyte distribution wid th ratioOrdered By: Kathie Powers on 11-10-2024 Erythrocyte distribution width (RBC) [Ratio] 18.1 % High 11.6-14.6 [facility] Erythrocyte distribution wid th standard deviationOrdered By: Kathie Powers on 11-10-2024 Erythrocyte distribution width (RBC) [Ratio] 62.1 fl High 35.1-43.9 [facility] Estimation of creatinine [place]ol[place] aranceOrdered By: Kathie Powers on 11-10-2024 Estimation of creatinine clearance 88.23 ml/min 50-250 [facility] GFR/1.73 sq M.predicted niki g non-blacks MDRD (S/P/Bld) [Vol rate/Area]Ordered By: Kathie Powers on 11-10-2024 Glomerular filtration rate (GFR) estimation/1.73 sq m using serum, plasma, or whole b 75 >60 [facility] Glomerular filtration rate ( GFR) estimation/1.73 sq m using serum, plasma, or whole bOrdered By: Kathie Powers on 11-10-2024 GFR/1.73 sq M.predicted among non-blacks MDRD (S/P/Bld) [Vol rate/Area] 75 mL/min/{1.73_m2} >60 [facility] Glucose Ql (U)Ordered By: Paulette Powers on 11-10-2024 Urine glucose detection Normal mg/dl Normal [facility] Glucose [Mass/Vol]Ordered By : Kathie Powers on 11-10-2024 Serum glucose measurement (mass/volume) 298 mg/dL High 70-99 [facility] Glucose measurement at bedsi deOrdered By: Kathie Powers on 11-10-2024 Glucose [Mass/Vol] 265 mg/dL High 74-106 [facility] Glucose measurement at bedside 265 mg/dL High 74-106 [facility] Hematocrit Auto (Bld) [Volum e fraction]Ordered By: Kathie Powers on 11-10-2024 Hematocrit (Bld) [Volume fraction] 32.9 % Low 40-54 [facility] Automated blood hematocrit (percentage) 32.9 % Low 40-54 [facility] Hemoglobin measurementOrdere d By: Kathie Powers on 11-10-2024 Hemoglobin (Bld) [Mass/Vol] 11.3 g/dL Low 13.0-16.5 [facility] Hemoglobin measurement 11.3 g/dL Low 13.0-16.5 [facility] Immature granulocytes/100 WB C Auto (Bld)Ordered By: Kathie Powers on 11-10-2024 Immature granulocytes/100 WBC (Bld) 1.100 % High 0.0-0.9 [facility] Automated immature granulocyte percentage 1.100 % High 0.0-0.9 [facility] International normalized rat io (INR) calculationOrdered By: Kathie Powers on 11-10-2024 International normalized ratio (INR) calculation 3.1 [facility] Ketones Test strip Ql (U)Ord ered By: Kathie Powers on 11-10-2024 Ketones Ql (U) 5 mg/dl High Negative [facility] Urine ketones detection by test strip 5 mg/dl High Negative [facility] Leukocyte esterase Test stri p Ql (U)Ordered By: Kathie Powers on 11-10-2024 Urine leukocyte esterase detection by dipstick 500 /ul High Negative [facility] Lymphocytes Auto (Unsp spec) [#/Vol]Ordered By: Kathie Powers on 11-10-2024 Absolute lymphocyte count 1.30 X10^3/uL 0.83-4.51 [facility] Lymphocytes/100 WBC Auto (Un sp spec)Ordered By: Kathie Powers on 11-10-2024 Automated lymphocyte count as percentage of total leukocytes 6.6 % Low 19-41 [facility] MCV (RBC) [Entitic vol]Order ed By: Kathie Powers on 11-10-2024 MCV (mean corpuscular volume) determination 92.7 fL 80-94 [facility] MCV (mean corpuscular volume ) determinationOrdered By: Kathie Powers on 11-10-2024 MCV (RBC) [Entitic vol] 92.7 fL 80-94 [facility] Mean corpuscular hemoglobin (MCH) determinationOrdered By: Kathie Powers on 11-10-2024 MCH (RBC) [Entitic mass] 31.8 pg 27.0-32.0 [facility] Mean corpuscular hemoglobin (MCH) determination 31.8 pg 27.0-32.0 [facility] Mean corpuscular hemoglobin concentration (MCHC) determinationOrdered By: Kathie Powers on 11-10-2024 Mean corpuscular hemoglobin concentration (MCHC) determination 34.3 g/dL 32-36 [facility] Mean platelet volume determi nationOrdered By: Kathie Powers on 11-10-2024 Mean platelet volume determination 12.2 fl High 6.2-12.0 [facility] Microscopic analysis of urin e for red blood cells (RBC)Ordered By: Kathie Powers on 11-10-2024 Microscopic analysis of urine for red blood cells (RBC) > 100 SEEN /hpf 0-5 [facility] Monocyte percentageOrdered B y: Kathie Powers on 11-10-2024 Monocytes/100 WBC (Bld) 6.9 % 0-10 [facility] Monocyte percentage 6.9 % 0-10 [facility] Mucus LM Ql (Urine sed)Order ed By: Kathie Powers on 11-10-2024 Mucus Ql (Urine sed) 0 SEEN /hpf [facility] Neutrophil percentageOrdered By: Kathie Powers on 11-10-2024 Neutrophils/100 WBC (Bld) 83.0 % High 47-70 [facility] Neutrophil percentage 83.0 % High 47-70 [facility] Nitrite Test strip Ql (U)Ord ered By: Kathie Powers on 11-10-2024 Nitrite Ql (U) Positive High Negative [facility] Urine nitrite test by dipstick Positive High Negative [facility] No Panel InformationOrdered By: Kathie Powers on 11-10-2024 58 U/L High <38 [facility] Nucleated red blood cell per centageOrdered By: Kathie Powers on 11-10-2024 Nucleated red blood cell percentage 0 % 0-5 [facility] Platelet countOrdered By: Paulette Powers on 11-10-2024 Platelets (Bld) [#/Vol] 58 10*3/uL Low 150-450 [facility] Platelet count 58 K/mm3 Low 150-450 [facility] Potassium (Unsp spec) [Mass/ Vol]Ordered By: Kathie Powers on 11-10-2024 Potassium measurement (mass/volume) 3.6 mmol/L 3.3-5.1 [facility] Potassium measurement (mass/ volume)Ordered By: Kathie Powers on 11-10-2024 Potassium (Unsp spec) [Mass/Vol] 3.6 mmol/L 3.3-5.1 [facility] Protein Test strip Ql (U)Ord ered By: Kathie Powers on 11-10-2024 Protein Ql (U) 500 mg/dl High Negative [facility] Urine protein assay by test strip, semi-quantitative 500 mg/dl High Negative [facility] Prothrombin timeOrdered By: Kathie Powers on 11-10-2024 PT Coag (PPP) [Time] 32.3 s High 11.7-14.9 [facility] Prothrombin time 32.3 SECONDS High 11.7-14.9 [facility] RBC Auto (Bld) [#/Vol]Ordere d By: Kathie Powers on 11-10-2024 RBC (Bld) [#/Vol] 3.55 10*6/uL Low 4.6-6.2 [facility] Automated blood erythrocyte count 3.55 M/mm3 Low 4.6-6.2 [facility] Serum creatinine measurement (mass/volume)Ordered By: Kathie Powers on 11-10-2024 Creatinine [Mass/Vol] 1.13 mg/dL 0.70-1.20 [facility] Serum globulin measurementOr dered By: Kathie Powers on 11-10-2024 Globulin (S) [Mass/Vol] 3.4 g/dL 2.2-4.2 [facility] Serum globulin measurement 3.4 g/dL 2.2-4.2 [facility] Serum glucose measurement (m ass/volume)Ordered By: Kathie Powers on 11-10-2024 Glucose [Mass/Vol] 298 mg/dL High 70-99 [facility] Serum or plasma alanine thomas otransferase (ALT) measurementOrdered By: Kathie Powers on 11-10-2024 ALT [Catalytic activity/Vol] 36 U/L <47 [facility] Serum or plasma albumin roosevelt urement (mass/volume)Ordered By: Kathie Powers on 11-10-2024 Albumin [Mass/Vol] 2.3 g/dL Low 3.5-5.0 [facility] Serum or plasma albumin/glob ulin mass ratioOrdered By: Kathie Powers on 11-10-2024 Albumin/Globulin [Mass ratio] 0.7 {ratio} Low 0.9-2.4 [facility] Serum or plasma alkaline kendrick sphatase measurementOrdered By: Kathie Powers on 11-10-2024 ALP [Catalytic activity/Vol] 310 U/L High 40-129 [facility] Serum or plasma calcium roosevelt urement (mass/volume)Ordered By: Kathie Powers on 11-10-2024 Calcium [Mass/Vol] 9.2 mg/dL 7.6-11.0 [facility] Serum or plasma urea nitroge n measurement (mass/volume)Ordered By: Kathie Powers on 11-10-2024 Urea nitrogen [Mass/Vol] 19 mg/dL 4-19 [facility] Sodium levelOrdered By: Javed Powers on 11-10-2024 Sodium [Moles/Vol] 123 mmol/L Low 133-145 [facility] Sodium level 123 mmol/L Low 133-145 [facility] Specific gravity (U) [Rel de nsity]Ordered By: Kathie Powers on 11-10-2024 Urine specific gravity measurement 1.015 1.002-1.030 [facility] Squamous epithelial cells de tection in urine sediment by light microscopyOrdered By: Kathie Powers on 11-10-2024 Epithelial cells.squamous LM Ql (Urine sed) 0 SEEN /hpf 0-5 [facility] Squamous epithelial cells detection in urine sediment by light microscopy 0 SEEN /hpf [facility] Total proteinOrdered By: Tyree Powers on 11-10-2024 Protein [Mass/Vol] 5.7 g/dL Low 5.9-8.4 [facility] Total protein 5.7 g/dL Low 5.9-8.4 [facility] Urea nitrogen [Mass/Vol]Orde red By: Kathie Powers on 11-10-2024 Serum or plasma urea nitrogen measurement (mass/volume) 19 mg/dL 4-19 [facility] Urine blood detectionOrdered By: Kathie Powers on 11-10-2024 Urine blood detection 250 /ul High Negative [facility] Urine clarityOrdered By: Tyree Powers on 11-10-2024 Clarity (U) Turbid Clear [facility] Urine color determinationOrd ered By: Kathie Powers on 11-10-2024 Color (U) Brown Yellow [facility] Urine glucose detectionOrder ed By: Kathie Powers on 11-10-2024 Glucose Ql (U) Normal mg/dl Normal [facility] Urine leukocyte esterase det ection by dipstickOrdered By: Kathie Powers on 11-10-2024 Leukocyte esterase Test strip Ql (U) 500 /ul High Negative [facility] Urine pHOrdered By: Kathie garcias on 11-10-2024 pH (U) 6.5 [pH] 5.0 - 8.0 [facility] Urine sediment bacteria coun t by microscopy (number/high power field)Ordered By: Kathie Powers on 11-10-2024 Bacteria LM.HPF (Urine sed) [#/Area] 2 /[HPF] None Seen [facility] Urine specific gravity measu rementOrdered By: Kathie Powers on 11-10-2024 Specific gravity (U) [Rel density] 1.015 1.002-1.030 [facility] Urine urobilinogen measureme ntOrdered By: Kathie Powers on 11-10-2024 Urobilinogen Ql (U) 1 mg/dl High Normal [facility] Urobilinogen Ql (U)Ordered B y: Kathie Powers on 11-10-2024 Urine urobilinogen measurement 1 mg/dl High Normal [facility] White blood cell (WBC) count Ordered By: Kathie Powers on 11-10-2024 WBC (Bld) [#/Vol] 19.6 10*3/uL High 4.4-11.0 [facility] White blood cell (WBC) count 19.6 K/mm3 High 4.4-11.0 [facility] White blood cell countOrdere d By: Kathie Powers on 11-10-2024 White blood cell count 5-10 SEEN /hpf 0-5 [facility] White blood cell count 5-10 SEEN /hpf 0-5 [facility] pH (U)Ordered By: Kathie aguilar on 11-10-2024 Urine pH 6.5 5.0 - 8.0 [facility] Blood manual differential co mment interpretation (narrative result)Ordered By: Kathie Powers on 11-09-2024 Manual differential comment Marco Antonio (Bld) [Interp] SCANNED [facility] Lactic acid measurementOrder ed By: Kathie Powers on 11-09-2024 Lactic acid measurement 2.4 mmol/L High 0.0-2.0 [facility] Manual differential comment Marco Antonio (Bld) [Interp]Ordered By: Kathie Powers on 11-09-2024 Blood manual differential comment interpretation (narrative result) SCANNED [facility] Pathologist review Marco Antonio (Unsp spec) [Interp]Ordered By: Kathie Powers on 11-09-2024 Review by pathologist N/A [facility] Platelet estimateOrdered By: Kathie Powers on 11-09-2024 Platelets LM Ql (Bld) MKD DEC ADEQ [facility] Platelets LM Ql (Bld)Ordered By: Kathie Powers on 11-09-2024 Platelet estimate MKD DEC ADEQ [facility] Review by pathologistOrdered By: Kathie Powers on 11-09-2024 Pathologist review Marco Antonio (Unsp spec) [Interp] N/A [facility] Venous blood ammonia measure mentOrdered By: Kathie Powers on 11-09-2024 Ammonia (P) [Moles/Vol] 104.0 umol/L High 16-60 [facility] Venous blood ammonia measurement 104.0 umol/L High 16-60 [facility] Lipase measurementOrdered By : Kathie Powers on 11-08-2024 Lipase measurement 94 U/L High 13-75 [facility] Magnesium (Unsp spec) [Mass/ Vol]Ordered By: Kathie Powers on 11-08-2024 Magnesium measurement (mass/volume) 2.4 mg/dL High 1.5-2.2 [facility] Magnesium measurement (mass/ volume)Ordered By: Kathie Powers on 11-08-2024 Magnesium (Unsp spec) [Mass/Vol] 2.4 mg/dL High 1.5-2.2 [facility] Serum phosphorus measurement Ordered By: Kathie Powers on 11-08-2024 Serum phosphorus measurement 1.6 mg/dL Low 2.7-4.5 [facility] Blood polychromasia detectio n by light microscopyOrdered By: Hill Acuña on 11-07-2024 Polychromasia LM Ql (Bld) 1+ [facility] Blood polychromasia detection by light microscopy 1+ [facility] Ovalocyte detectionOrdered B y: Hill Acuña on 11-07-2024 Ovalocytes LM Ql (Bld) 1+ [facility] Band form neutrophils/100 WB C (Bld)Ordered By: Hill Acuña on 11-03-2024 Blood band neutrophil count as percentage of total leukocytes 6 % High 0-5 [facility] Blood band neutrophil count as percentage of total leukocytesOrdered By: Hill Acuña on 11-03-2024 Band form neutrophils/100 WBC (Bld) 6 % High 0-5 [facility] Blood eosinophils/100 leukoc ytesOrdered By: Hill Acuña on 11-03-2024 Eosinophils/100 WBC (Bld) 1 % 0-5 [facility] Blood lymphocytes/100 leukoc ytesOrdered By: Hill Acuña on 11-03-2024 Lymphocytes/100 WBC (Bld) 2 % Low 19-41 [facility] Blood lymphocytes/100 leukocytes 2 % 0-10 [facility] Blood metamyelocytes/100 bri kocytesOrdered By: Hill Acuña on 11-03-2024 Metamyelocytes/100 WBC (Bld) 1 % 0-1 [facility] Blood metamyelocytes/100 leukocytes 1 % 0-5 [facility] Blood monocytes/100 leukocyt esOrdered By: Hill Acuña on 11-03-2024 Monocytes/100 WBC (Bld) 2 % 0-10 [facility] Blood segmented neutrophils/ 100 leukocytesOrdered By: Hill Acuña on 11-03-2024 Segmented neutrophils/100 WBC (Bld) 85 % High 47-70 [facility] Cells counted Molgen (Bld/Ti ss) [#]Ordered By: Hill Acuña on 11-03-2024 Total cell count 100 MANUAL DIFF [facility] Segmented neutrophils/100 WB C (Bld)Ordered By: Hill Acuña on 11-03-2024 Blood segmented neutrophils/100 leukocytes 85 % High 47-70 [facility] Total cell countOrdered By: Hill Acuña on 11-03-2024 Cells counted Molgen (Bld/Tiss) [#] 100 MANUAL DIFF [facility] Erythrocyte morphology asses smentOrdered By: Hill Acuña on 11-02-2024 RBC morphology finding Nom (Bld) NORM C+C NORMAL NORM C&C [facility] RBC morphology finding Nom ( Bld)Ordered By: Hill Acuña on 11-02-2024 Erythrocyte morphology assessment NORM C+C NORMAL NORM C&C [facility] Trough vancomycin levelOrder ed By: Buster Fuchs on 11-01-2024 Vancomycin trough [Mass/Vol] 17.7 ug/mL High 5.0-15.0 [facility] Vancomycin trough [Mass/Vol] Ordered By: Buster Fuchs on 11-01-2024 Trough vancomycin level 17.7 ug/mL High 5.0-15.0 [facility] Activated partial thrombopla stin time (aPTT) in platelet poor plasma by coagulation aOrdered By: Buster Fuchs on 10-31-2024 aPTT Coag (PPP) [Time] 42.7 s High 24.1-36.2 [facility] aPTT Coag (PPP) [Time]Ordere d By: Butser Fuchs on 10-31-2024 Activated partial thromboplastin time (aPTT) in platelet poor plasma by coagulation a 42.7 Seconds High 24.1-36.2 [facility] C. difficile Ql (Stl)Ordered By: Hill Wright on 10-30-2024 Stool Clostridium difficile detection Toxigenic C. difficile Abnormal [facility] Clostridium difficile detect ion by polymerase chain reactionOrdered By: Hill Wright on 10-30-2024 C. difficile DNA ANANTH+probe Ql (Unsp spec) [facility] Stool Clostridium difficile detectionOrdered By: Hill Wright on 10-30-2024 C. difficile Ql (Stl) Toxigenic C. difficile Abnormal [facility] Stool lactoferrin detection by immunoassayOrdered By: Hill Wright on 10-30-2024 Lactoferrin IA Ql (Stl) [facility] Arterial patency Wrist arter y --pre arterial punctureOrdered By: Buster Fuchs on 10-29-2024 Assessment of wrist artery patency prior to arterial puncture Positive [facility] Assessment of wrist artery p atency prior to arterial punctureOrdered By: Buster Fuchs on 10-29-2024 Arterial patency Wrist artery --pre arterial puncture Positive [facility] Base excess Calc (BldV) [Mol es/Vol]Ordered By: Buster Fuchs on 10-29-2024 Blood base excess determination -10 mmol/L [facility]2-2 [facility] Blood base excess determinat ionOrdered By: Buster Fuchs on 10-29-2024 Base excess Calc (BldV) [Moles/Vol] -10 mmol/L [facility]2-2 [facility] Blood bicarbonate measuremen tOrdered By: Buster Fuchs on 10-29-2024 HCO3 (Bld) [Moles/Vol] 15.2 mmol/L Low 22-26 [facility] Blood bicarbonate measurement 15.2 mmol/L Low 22-26 [facility] Blood cultureOrdered By: Hugo Wright on 10-29-2024 Bacteria identified Cx Nom (Bld) No growth in 5 days. [facility] Blood culture No growth in 5 days. [facility] Calculated very low density lipoprotein (VLDL) cholesterol measurementOrdered By: Hill Wright on 10-29-2024 Calculated very low density lipoprotein (VLDL) cholesterol measurement 17 mg/dL 5-40 [facility] Calculated very low density lipoprotein (VLDL) cholesterol measurement 17 mg/dL 5-40 [facility] Cholesterol [Mass/Vol]Ordere d By: Hill Wright on 10-29-2024 Serum or plasma cholesterol measurement (mass/volume) 132 mg/dL <201 [facility] Cholesterol in HDL [Mass/Vol ]Ordered By: Hill Wright on 10-29-2024 Serum or plasma cholesterol in HDL measurement (mass/volume) 33 mg/dL Low >40 [facility] Determination of fraction of inspired oxygenOrdered By: Buster Fuchs on 10-29-2024 Determination of fraction of inspired oxygen 21.0 [facility] Electrocardiogram reportOrde red By: Jeovanny Ramos on 10-29-2024 EKG study [facility] Other Phone: LDL calc ser/plasOrdered By: Hill Wright on 10-29-2024 Cholesterol in LDL [Mass/Vol] 83 mg/dL [facility] Measurement, pHOrdered By: Stacy Fuchs on 10-29-2024 pH (Unsp spec) 7.39 [pH] 7.35-7.45 [facility] No Panel InformationOrdered By: Buster Fuchs on 10-29-2024 ART [facility] L Radial [facility] Not entered [facility] Room Air [facility] No Panel InformationOrdered By: Hill Wright on 10-29-2024 10.20 ug/dL 6.02-18.40 [facility] Osmolality, serumOrdered By: Hill Wright on 10-29-2024 Osmolality, serum 292 mOsm/KG 275-295 [facility] Oxygen saturation measuremen tOrdered By: Buster Fuchs on 10-29-2024 Oxygen saturation measurement 93 % Low 95-99 [facility] Partial pressure of carbon d ioxide measurementOrdered By: Buster Fuchs on 10-29-2024 Partial pressure of carbon dioxide measurement 25.1 mmHg Low 35-45 [facility] Partial pressure of oxygen m easurementOrdered By: Buster Fuchs on 10-29-2024 Partial pressure of oxygen measurement 67 mmHG Low 75-100 [facility] Screening total cholesterol/ high density lipoprotein (HDL) cholesterol ratioOrdered By: Hill Wright on 10-29-2024 Screening total cholesterol/high density lipoprotein (HDL) cholesterol ratio 4.04 [facility] Serum or plasma cholesterol in HDL measurement (mass/volume)Ordered By: Hill Wright on 10-29-2024 Cholesterol in HDL [Mass/Vol] 33 mg/dL Low >40 [facility] Serum or plasma cholesterol measurement (mass/volume)Ordered By: Hill Wright on 10-29-2024 Cholesterol [Mass/Vol] 132 mg/dL <201 [facility] Total carbon dioxide measure mentOrdered By: Buster Fuchs on 10-29-2024 CO2 [Moles/Vol] 16 mmol/L [facility] Total carbon dioxide measurement 16 mmol/L [facility] Triglycerides measurementOrd ered By: Hill Wright on 10-29-2024 Triglycerides measurement 83 mg/dL [facility] Urine cultureOrdered By: Viraj Dunn on 10-29-2024 Bacteria identified Cx Nom (U) Culture exhibits no growth. [facility] Urine culture Culture exhibits no growth. [facility] pH (Unsp spec)Ordered By: Marianna Fuchs on 10-29-2024 Measurement, pH 7.39 7.35-7.45 [facility] Absolute neutrophil countOrd ered By: Alber Dunn on 10-28-2024 Neutrophils (Bld) [#/Vol] 19.0 10*3/uL High 2.0-7.7 [facility] Amorphous sediment LM Ql (Ur ine sed)Ordered By: Alber Dunn on 10-28-2024 Amorphous sediment detection in urine sediment by light microscopy 1+ URATE [facility] Amorphous sediment detection in urine sediment by light microscopyOrdered By: Alber Dunn on 10-28-2024 Amorphous sediment LM Ql (Urine sed) 1+ URATE [facility] Anion gap in Serum or Plasma Ordered By: Alber Dunn on 10-28-2024 Anion gap [Moles/Vol] 17 mmol/L High 5-15 [facility] BUN/creatinine ratioOrdered By: Alber Dunn on 10-28-2024 Urea nitrogen/Creatinine [Mass ratio] 18.8 mg/mg 10-20 [facility] Basophil percentageOrdered B y: Alber Dunn on 10-28-2024 Basophils/100 WBC (Bld) 0.2 % 0-1 [facility] Bilirubin Test strip Ql (U)O rdered By: Alber Dunn on 10-28-2024 Bilirubin Ql (U) 1 mg/dL High Negative [facility] Comment on above: COLOR OF URINE MAY A FFECT DIPSTICK RESULTS. Bilirubin, totalOrdered By: Alber Dunn on 10-28-2024 Bilirubin [Mass/Vol] 1.86 mg/dL High 0.00-1.30 [facility] Carbon dioxide, total [Moles /volume] in Central venous bloodOrdered By: Alber Dunn on 10-28-2024 CO2 [Moles/Vol] 12.4 mmol/L Low 21.0-32.0 [facility] Chloride assayOrdered By: Hernesto Dunn on 10-28-2024 Chloride [Moles/Vol] 98 mmol/L 98-108 [facility] Eosinophil percentageOrdered By: Alber Dunn on 10-28-2024 Eosinophils/100 WBC (Bld) 1.4 % 0-5 [facility] Epithelial cells.squamous LM Ql (Urine sed)Ordered By: Alber Dunn on 10-28-2024 Epithelial cells.squamous LM.HPF (Urine sed) [#/Area] 5 /[HPF] 0-5 [facility] Erythrocyte distribution wid th ratioOrdered By: Alber Dunn on 10-28-2024 Erythrocyte distribution width (RBC) [Ratio] 19.1 % High 11.6-14.6 [facility] Erythrocyte distribution wid th standard deviationOrdered By: Alber Dunn on 10-28-2024 Erythrocyte distribution width (RBC) [Entitic vol] 62.7 fL High 35.1-43.9 [facility] GFR/1.73 sq M.predicted niki g non-blacks MDRD (S/P/Bld) [Vol rate/Area]Ordered By: Alber Dunn on 10-28-2024 Estimated GFR (MDRD) Non-Af Amer 62 >60 [facility] Comment on above: mL/min/1.73m2 CKD-EP I Creatinine Equation (2020) Glucose Ql (U)Ordered By: Hernesto Dunn on 10-28-2024 Glucose (U) [Mass/Vol] 50 mg/dL High Normal [facility] HbA1c (Bld) [Mass fraction]O rdered By: Hill Wright on 10-28-2024 Hemoglobin A1c percentage 6.7 % >5.7 [facility] Hematocrit Auto (Bld) [Volum e fraction]Ordered By: Alber Dunn on 10-28-2024 Hematocrit (Bld) [Volume fraction] 37.3 % Low 40-54 [facility] Hemoglobin A1c percentageOrd ered By: Hill Wright on 10-28-2024 HbA1c (Bld) [Mass fraction] 6.7 % >5.7 [facility] Hemoglobin measurementOrdere d By: Alber Dunn on 10-28-2024 Hemoglobin (Bld) [Mass/Vol] 12.7 g/dL Low 13.0-16.5 [facility] Immature granulocytes/100 WB C Auto (Bld)Ordered By: Alber Dunn on 10-28-2024 Immature granulocytes/100 WBC (Bld) 1.400 % High 0.0-0.9 [facility] [facility] Comment on above: IG% - Immature Granu locytes (promyelocytes, myelocytes and metamyelocytes) > 1% indicates that a LEFT SHIFT is Present. Ketones Test strip Ql (U)Ord ered By: Alber Dunn on 10-28-2024 Ketones Ql (U) 5 mg/dl High Negative [facility] Laboratory - Chemistry and C hemistry - challengeOrdered By: Alber Dunn on 10-28-2024 AST [Catalytic activity/Vol] 48 U/L High <38 [facility] Comment on above: Hemolysis present, R esults could be affected. Laboratory - Hematology and Cell countsOrdered By: Alber Dunn on 10-28-2024 Anisocytosis Ql (Bld) RARE [facility] Lactic acid measurementOrder ed By: Alber Dunn on 10-28-2024 Lactate [Moles/Vol] 4.0 mmol/L High 0.0-2.0 [facility] Comment on above: Critical Result(s) C alled LSPARR at: 2024 by: LAURIE Results read back by same. Critical Result(s) Called at: by: Results read back by same.Previous reported result: 4.0 mmol/LEdited by: RONDA on 10/28/24:2041 AMENDED REPORT 10/28/242041 LACTIC ACID previously reported as: 4.0 *H mmol/L Critical Result(s) Called LSPARR at: 2024 by: ALURIE Results read back by same. Lipase measurementOrdered By : Alber Dunn on 10-28-2024 Lipase [Catalytic activity/Vol] 45 U/L 13-75 [facility] Comment on above: Please note:LIPASE r evised reference range effective 22. New Lipase methodology. Expected to produce lower values than the previous assay method. NEW Reference Range: 13 - 75 U/L Lymphocytes Auto (Unsp spec) [#/Vol]Ordered By: Alber Dunn on 10-28-2024 Lymphocytes (Bld) [#/Vol] 1.28 10*3/uL 0.83-4.51 [facility] Lymphocytes/100 WBC Auto (Un sp spec)Ordered By: Alber Dunn on 10-28-2024 Lymphocytes/100 WBC (Bld) 5.6 % Low 19-41 [facility] MCV (mean corpuscular volume ) determinationOrdered By: Alber Dunn on 10-28-2024 MCV (RBC) [Entitic vol] 91.2 fL 80-94 [facility] Macrocytes Ql (Bld)Ordered B y: Alber Dunn on 10-28-2024 Macrocytosis RARE [facility] Macrocytes detection RARE [facility] Macrocytes detectionOrdered By: Alber Dunn on 10-28-2024 Macrocytes Ql (Bld) RARE [facility] Manual differential comment Marco Antonio (Bld) [Interp]Ordered By: Alber Dunn on 10-28-2024 Differential Comment SEE COMMENT [facility] Comment on above: MONOCYTOSIS NOTED Mean corpuscular hemoglobin (MCH) determinationOrdered By: Alber Dunn on 10-28-2024 MCH (RBC) [Entitic mass] 31.1 pg 27.0-32.0 [facility] Mean corpuscular hemoglobin concentration (MCHC) determinationOrdered By: Alber Dunn on 10-28-2024 MCHC (RBC) [Mass/Vol] 34.0 g/dL 32-36 [facility] Mean platelet volume determi nationOrdered By: Alber Dunn on 10-28-2024 Platelet mean volume (Bld) [Entitic vol] 12.0 fL 6.2-12.0 [facility] Microscopic analysis of urin e for red blood cells (RBC)Ordered By: Alber Dunn on 10-28-2024 Urine RBC > 100 SEEN /hpf 0-5 [facility] Monocyte percentageOrdered B y: Alber Dunn on 10-28-2024 Monocytes/100 WBC (Bld) 8.4 % 0-10 [facility] Mucus LM Ql (Urine sed)Order ed By: Alber Dunn on 10-28-2024 Mucus Ql (Urine sed) 0 SEEN /hpf [facility] Neutrophil percentageOrdered By: Alber Dunn on 10-28-2024 Neutrophils/100 WBC (Bld) 83.0 % High 47-70 [facility] Nitrite Test strip Ql (U)Ord ered By: Alber Dunn on 10-28-2024 Nitrite Ql (U) Negative Negative [facility] Nucleated red blood cell per centageOrdered By: Alber Dunn on 10-28-2024 Nucleated RBC/100 WBC (Bld) [Ratio] 0 % 0-5 [facility] Osmolality (U) [Osmolality]O rdered By: Hill Wright on 10-28-2024 Osmolality ur 484 mOsm/KG >50 [facility] Osmolality urOrdered By: Hugo Wright on 10-28-2024 Osmolality (U) [Osmolality] 484 mOsm/KG >50 [facility] Ovalocytes LM Ql (Bld)Ordere d By: Alber Dunn on 10-28-2024 Ovalocytes RARE [facility] Pathologist review Marco Antonio (Unsp spec) [Interp]Ordered By: Alber Dunn on 10-28-2024 Differential Pathologist's Review [facility] Platelet countOrdered By: Hernesto Dunn on 10-28-2024 Platelets (Bld) [#/Vol] 142 10*3/uL Low 150-450 [facility] Platelets LM Ql (Bld)Ordered By: Alber Dunn on 10-28-2024 Platelet Estimate ADEQUATE ADEQ [facility] Potassium (Unsp spec) [Mass/ Vol]Ordered By: Alber Dunn on 10-28-2024 Potassium [Moles/Vol] 4.5 mmol/L 3.3-5.1 [facility] Comment on above: Hemolysis present, R esults could be affected. Protein Test strip Ql (U)Ord ered By: Alber Dunn on 10-28-2024 Protein Ql (U) 500 mg/dl High Negative [facility] RBC Auto (Bld) [#/Vol]Ordere d By: Alber Dunn on 10-28-2024 RBC (Bld) [#/Vol] 4.09 10*6/uL Low 4.6-6.2 [facility] RBC morphology finding Nom ( Bld)Ordered By: Alber Dunn on 10-28-2024 Red Blood Cell Morphology N CHROM NORMAL NORM C&C [facility] Serum creatinine measurement (mass/volume)Ordered By: Alber Dunn on 10-28-2024 Creatinine [Mass/Vol] 1.33 mg/dL High 0.70-1.20 [facility] Serum globulin measurementOr dered By: Alber Dunn on 10-28-2024 Globulin (S) [Mass/Vol] 3.4 g/dL 2.2-4.2 [facility] Serum glucose measurement (m ass/volume)Ordered By: Alber Dunn on 10-28-2024 Glucose [Mass/Vol] 338 mg/dL High 70-99 [facility] Serum or plasma alanine thomas otransferase (ALT) measurementOrdered By: Alber Dunn on 10-28-2024 ALT [Catalytic activity/Vol] 23 U/L <47 [facility] Serum or plasma albumin roosevelt urement (mass/volume)Ordered By: Alber Dunn on 10-28-2024 Albumin [Mass/Vol] 2.5 g/dL Low 3.5-5.0 [facility] Serum or plasma albumin/glob ulin mass ratioOrdered By: Alber Dunn on 10-28-2024 Albumin/Globulin [Mass ratio] 0.7 {ratio} Low 0.9-2.4 [facility] Serum or plasma alkaline kendrick sphatase measurementOrdered By: Alber Dunn on 10-28-2024 ALP [Catalytic activity/Vol] 274 U/L High 40-129 [facility] Serum or plasma calcium roosevelt urement (mass/volume)Ordered By: Alber Dunn on 10-28-2024 Calcium [Mass/Vol] 9.2 mg/dL 7.6-11.0 [facility] Serum or plasma urea nitroge n measurement (mass/volume)Ordered By: Alber Dunn on 10-28-2024 Urea nitrogen [Mass/Vol] 25 mg/dL High 4-19 [facility] Sodium levelOrdered By: Alber Dunn on 10-28-2024 Sodium [Moles/Vol] 128 mmol/L Low 133-145 [facility] Total proteinOrdered By: Viraj Dunn on 10-28-2024 Protein [Mass/Vol] 5.9 g/dL 5.9-8.4 [facility] Urine blood detectionOrdered By: Alber Dunn on 10-28-2024 Urine Occult Blood 250 /ul High Negative [facility] Urine clarityOrdered By: Viraj Dunn on 10-28-2024 Clarity (U) Cloudy Clear [facility] Urine color determinationOrd ered By: Alber Dunn on 10-28-2024 Color (U) Red Yellow [facility] Urine leukocyte esterase det ection by dipstickOrdered By: Alber Dunn on 10-28-2024 Leukocyte esterase Test strip Ql (U) 500 /ul High Negative [facility] Urine pHOrdered By: Alber grajeda on 10-28-2024 pH (U) 6.5 [pH] 5.0 - 8.0 [facility] Urine sediment bacteria coun t by microscopy (number/high power field)Ordered By: Alber Dunn on 10-28-2024 Bacteria LM.HPF (Urine sed) [#/Area] 1 /[HPF] None Seen [facility] Urine specific gravity measu rementOrdered By: Alber Dunn on 10-28-2024 Specific gravity (U) [Rel density] 1.015 1.002-1.030 [facility] Urobilinogen Ql (U)Ordered B y: Alber Dunn on 10-28-2024 Urine Urobilinogen Normal mg/dl Normal [facility] White blood cell (WBC) count Ordered By: Alber Dunn on 10-28-2024 WBC (Bld) [#/Vol] 22.9 10*3/uL High 4.4-11.0 [facility] White blood cell countOrdere d By: Alber Dunn on 10-28-2024 Urine WBC >100 SEEN /hpf 0-5 [facility] APTTon 10-04-2024 aPTT Coag (PPP) [Time] 40 s High [facility] Albuminon 10-04-2024 Albumin (Body fld) [Mass/Vol] <0.5 Normal Not established [facility] Comment on above: Order Comment: Venip uncture immediately after or during the administration of Metamizole may lead to falsely low results. Testing should be performed immediately prior to Metamizole dosing. Performed By: #### 2 524-7 #### GOMES ALYSSA ([id number]) [facility] ([facility]) [address] [place] [address] Bacteria identifiedon 2024 Bacteria identified Cx Nom (Body fld) Test: Sterile Fluid Culture/Smear Specimen Source: Pleural Specimen Type: Fluid Specimen Date: 10/04/20241713 Result Date: 10/08/2024 0825 Result Status: Final result Resulting Lab: [facility] [address] [address] CULTURE No growth aerobically and anaerobically STAIN (1+) Rare Polymorphonuclear leukocytes No organisms seen Normal [facility] Comment on above: Performed By: #### 2 524-7 #### MIREYA SHAH ([id number]) [facility] ([facility]) [address] [place] [address] Basic metabolic 2000 panelon 10-04-2024 Anion gap [Moles/Vol] 8 mmol/L Low 10 - 2 0 mmol/L [facility] Calcium [Mass/Vol] 8.1 mg/dL Low 8.6 - 10. 3 mg/dL [facility] Chloride [Moles/Vol] 109 mmol/L High 98 - 10 7 mmol/L [facility] CO2 [Moles/Vol] 24 mmol/L 21 - 32 mmol/L [facility] Creatinine [Mass/Vol] 0.73 mg/dL 0.50 - 1.30 mg/dL [facility] eGFR - PINF [facility] Comment on above: Calculations of patric mated GFR are performed using the 2020 CKD-EPI Study Refit equation without the race variable for the IDMS-Traceable creatinine methods. https://jasn.asnjournals.org/content//ASN.2020 315803 Glucose [Mass/Vol] 197 mg/dL High 74 - 99 mg/dL [facility] Potassium [Moles/Vol] 3.9 mmol/L 3.5 - 5.3 mmol/L [facility] Sodium [Moles/Vol] 137 mmol/L 136 - 145 mmol/L [facility] Urea nitrogen [Mass/Vol] 17 mg/dL 6 - 23 mg/dL [facility] Anion gap [Moles/Vol] 8 mmol/L Low 10-20 [facility] Comment on above: Performed By: #### 2 4321-2 #### MIREYA SHAH ([id number]) [facility] ([facility]) [facility] [place] [address] Calcium [Mass/Vol] 8.1 mg/dL Low 8.6-10.3 [facility] Comment on above: Performed By: #### 2 4321-2 #### MIREYA SHAH ([id number]) [facility] ([facility]) [address] [place] [address] Chloride [Moles/Vol] 109 mmol/L High 98-107 [facility] Comment on above: Performed By: #### 2 4321-2 #### MIREYA SHAH ([id number]) [facility] ([facility]) [address] [place] [address] CO2 [Moles/Vol] 24 mmol/L Normal 21-32 [facility] Comment on above: Performed By: #### 2 4321-2 #### MIREYA SHAH ([id number]) [facility] ([facility]) [address] [place] [address] Creatinine [Mass/Vol] 0.73 mg/dL Normal 0.50-1.[address] [facility] Comment on above: Performed By: #### 2 4321-2 #### MIREYA SHAH ([id number]) [facility] ([facility]) [address] [place] [address] 26842 GFR/1.73 sq M.predicted MDRD (S/P/Bld) [Vol rate/Area] mL/min/{1.73_m2} Normal >60 [facility] Comment on above: Result Comment: Calc ulations of estimated GFR are performed using the 2020 CKD-EPI Study Refit equation without the race variable for the IDMS-Traceable creatinine methods. https://jasn.asnjournals.org/content/early//ASN.2020 504869 Performed By: #### 2 4321-2 #### MIREYA SHAH ([id number]) [facility] ([facility]) [address] [place] [address]52 Glucose [Mass/Vol] 197 mg/dL High 74-99 [facility] Comment on above: Performed By: #### 2 4321-2 #### MIREYA SHAH ([id number]) [facility] ([facility]) [address] [place] [address] Potassium [Moles/Vol] 3.9 mmol/L Normal 3.5-5.[address] [facility] Comment on above: Performed By: #### 2 4321-2 #### MIREYA SHAH ([id number]) [facility] ([facility]) [address] [place] [address] Sodium [Moles/Vol] 137 mmol/L Normal 136-145 [facility] Comment on above: Performed By: #### 2 4321-2 #### MIREYA SHAH ([id number]) [facility] ([facility]) [address] [place] [address]017 Urea nitrogen [Mass/Vol] 17 mg/dL Normal 6-23 [facility] Comment on above: Performed By: #### 2 4321-2 #### MIREYA SHAH ([id number]) [facility] ([facility]) [address] [place] [address] 58871 CBC W Auto Differential pane l (Bld)on 10-04-2024 Basophils (Bld) [#/Vol] 0.02 10*3/uL [facility] Basophils/100 WBC (Bld) 0.4 % 0.0 - 2.0 % [facility] Eosinophils (Bld) [#/Vol] 0.15 10*3/uL [facility] Eosinophils/100 WBC (Bld) 2.7 % 0.0 - 6.0 % [facility] Erythrocyte distribution width (RBC) [Ratio] 22.1 % High 11.5 - 14.5 % [facility] Hematocrit (Bld) [Volume fraction] 29.8 % Low 41.0 - 52.0 % [facility] Hemoglobin (Bld) [Mass/Vol] 9.3 g/dL Low 13.5 - 17.5 g/dL [facility] Immature granulocytes (Bld) [#/Vol] 0.01 10*3/uL [facility] Immature granulocytes/100 WBC (Bld) 0.2 % 0.0 - 0.9 % [facility] Comment on above: Immature Granulocyte Count (IG) includes promyelocytes, myelocytes and metamyelocytes but does not include bands. Percent differential counts (%) should be interpreted in the context of the absolute cell counts (cells/UL). Interpretation and review of laboratory results Abnormal [facility] Lymphocytes (Bld) [#/Vol] 0.64 10*3/uL Low [facility] Lymphocytes/100 WBC (Bld) 11.5 % 13.0 - 44.0 % [facility] MCH (RBC) [Entitic mass] 30 pg 26.0 - 34.0 pg [facility] MCHC (RBC) [Mass/Vol] 31.2 g/dL Low 32.0 - 36.0 g/dL [facility] MCV (RBC) [Entitic vol] 96 fL 80 - 100 fL [facility] Monocytes (Bld) [#/Vol] 0.46 10*3/uL [facility] Monocytes/100 WBC (Bld) 8.3 % 2.0 - 10.0 % [facility] Neutrophils (Bld) [#/Vol] 4.28 10*3/uL [facility] Comment on above: Percent differential counts (%) should be interpreted in the context of the absolute cell counts (cells/uL). Neutrophils/100 WBC (Bld) 76.9 % 40.0 - 80.0 % [facility] Nucleated RBC/100 WBC (Bld) [Ratio] 0 % [facility] Platelets (Bld) [#/Vol] 65 10*3/uL Low [facility] RBC (Bld) [#/Vol] 3.1 10*6/uL Low [facility] WBC (Bld) [#/Vol] 5.6 10*3/uL [facility] Basophils (Bld) [#/Vol] 0.02 x10*3/uL Normal 0.00-0.10 [facility] Comment on above: Performed By: #### 5 7021-8 #### MIREYA SHAH ([id number]) [facility] ([facility]) [address] [place] [address]89 Basophils/100 WBC (Bld) 0.4 % Normal 0.0-2.0 [facility] Comment on above: Performed By: #### 5 7021-8 #### MIREYA SHAH ([id number]) [facility] ([facility]) [address] [place] [address] 76513 Eosinophils (Bld) [#/Vol] 0.15 x10*3/uL Normal 0.00-0.70 [facility] Comment on above: Performed By: #### 5 7021-8 #### MIREYA SHAH ([id number]) [facility] ([facility]) [address] [place] [address]33 Eosinophils/100 WBC (Bld) 2.7 % Normal 0.0-6.0 [facility] Comment on above: Performed By: #### 5 7021-8 #### MIREYA SHAH ([id number]) [facility] ([facility]) [address] [place] [address]32 Erythrocyte distribution width (RBC) [Ratio] 22.1 % High 11.5-14.5 [facility] Comment on above: Performed By: #### 5 7021-8 #### MIREYA SHAH ([id number]) [facility] ([facility]) [address] [place] [address] 50818 Hematocrit (Bld) [Volume fraction] 29.8 % Low 41.0-52.0 [facility] Comment on above: Performed By: #### 5 7021-8 #### MIREAY SHAH ([id number]) [facility] ([facility]) [address] [place] [address] 16150 Hemoglobin (Bld) [Mass/Vol] 9.3 g/dL Low 13.5-17.5 [facility] Comment on above: Performed By: #### 5 7021-8 #### MIREYA SHAH ([id number]) [facility] ([facility]) [address] [place] [address] 42533 Immature granulocytes (Bld) [#/Vol] 0.01 x10*3/uL Normal 0.00-0.70 [facility] Comment on above: Performed By: #### 5 7021-8 #### MIREYA SHAH ([id number]) [facility] ([facility]) [address] [place] [address] 23459 Immature granulocytes/100 WBC (Bld) 0.2 % Normal 0.0-0.9 [facility] Comment on above: Result Comment: Danielle ture Granulocyte Count (IG) includes promyelocytes, myelocytes and metamyelocytes but does not include bands. Percent differential counts (%) should be interpreted in the context of the absolute cell counts (cells/UL). Performed By: #### 5 7021-8 #### MIREYA SHAH ([id number]) [facility] ([facility]) [address] [place] [address] 92444 Lymphocytes (Bld) [#/Vol] 0.64 x10*3/uL Low 1.20-4.80 [facility] Comment on above: Performed By: #### 5 7021-8 #### MIREYA SHAH ([id number]) [facility] ([facility]) [address] [place] [address] 81394 Lymphocytes/100 WBC (Bld) 11.5 % Normal 13.0-44.0 [facility] Comment on above: Performed By: #### 5 7021-8 #### MIREYA SHAH ([id number]) [facility] ([facility]) [address] [place] [address] 26451 MCH (RBC) [Entitic mass] 30.0 pg Normal 26.0-34.0 [facility] Comment on above: Performed By: #### 5 7021-8 #### MIREYA SHAH ([id number]) [facility] ([facility]) [address] [place] [address] 96172 MCHC (RBC) [Mass/Vol] 31.2 g/dL Low 32.0-36.[address] [facility] Comment on above: Performed By: #### 5 7021-8 #### MIREYA SHAH ([id number]) [facility] ([facility]) [address] [place] [address] 11469 MCV (RBC) [Entitic vol] 96 fL Normal 80-100 [facility] Comment on above: Performed By: #### 5 7021-8 #### MIREYA SHAH ([id number]) [facility] ([facility]) [address] [place] [address] 61108 Monocytes (Bld) [#/Vol] 0.46 x10*3/uL Normal 0.10-1.00 [facility] Comment on above: Performed By: #### 5 7021-8 #### MIREYA SHAH ([id number]) [facility] ([facility]) [address] [place] [address] 43313 Monocytes/100 WBC (Bld) 8.3 % Normal 2.0-10.0 [facility] Comment on above: Performed By: #### 5 7021-8 #### MIREYA SHAH ([id number]) [facility] ([facility]) [address] [place] [address] 95369 Neutrophils (Bld) [#/Vol] 4.28 x10*3/uL Normal 1.20-7.70 [facility] Comment on above: Result Comment: Perc ent differential counts (%) should be interpreted in the context of the absolute cell counts (cells/uL). Performed By: #### 5 7021-8 #### MIREYA SHAH ([id number]) [facility] ([facility]) [address] [place] [address] 00263 Neutrophils/100 WBC (Bld) 76.9 % Normal 40.0-80.0 [facility] Comment on above: Performed By: #### 5 7021-8 #### MIREYA SHAH ([id number]) [facility] ([facility]) [address] [place] [address] 33126 Nucleated RBC/100 WBC (Bld) [Ratio] 0.0 /100 WBCs Normal 0.0-0.0 [facility] Comment on above: Performed By: #### 5 7021-8 #### MIREYA SHAH ([id number]) [facility] ([facility]) [address] [place] [address] 42276 Platelets (Bld) [#/Vol] 65 x10*3/uL Low 150-450 [facility] Comment on above: Performed By: #### 5 7021-8 #### MIREYA SHAH ([id number]) [facility] ([facility]) [address] [place] [address] 77563 RBC (Bld) [#/Vol] 3.10 x10*6/uL Low 4.50-5.90 [facility] Comment on above: Performed By: #### 5 7021-8 #### MIREYA SHAH ([id number]) [facility] ([facility]) [address] [place] [address] WBC (Bld) [#/Vol] 5.6 x10*3/uL Normal 4.4-11.3 [facility] Comment on above: Performed By: #### 5 7021-8 #### MIREYA SHAH ([id number]) [facility] ([facility]) [address] [place] [address] CT ABDOMEN PELVIS W IV CONTR [place] 10-04-2024 CT ABDOMEN PELVIS W IV CONTRAST Interpreted By: Yohana Huang, STUDY: CT ABDOMEN PELVIS W IV CONTRAST; 10/04/2024 2:16 pm INDICATION: Signs/Symptoms:generaliz ed abdominal pain, hx of cirrhosis, recent paracentesis. COMPARISON: None. ACCESSION NUMBER(S): [id number] ORDERING CLINICIAN: SRIRAM OLEARY TECHNIQUE: CT of [...] Yohana Huang 10/04/2024 2:28 PM Dictation workstation: [id number] [facility] CT Abdomen and Pelvis W cont rast Jam[place] 10-04-2024 Coronary artery calcifications. Anasarca. Ascites. Small irregular liver consistent with cirrhosis. Extensive collateral vessels. Enlarged spleen. Ventral and inguinal hernias containing ascitic fluid. MACRO: none Signed by: Yohana Huang 10/04/2024 2:28 PM Dictation workstation: [id number] Interpreted By: Yohana Chen, STUDY: CT ABDOMEN PELVIS W IV CONTRAST; 10/04/2024 2:16 pm INDICATION: Signs/Symptoms:generaliz ed abdominal pain, hx of cirrhosis, recent paracentesis. COMPARISON: None. ACCESSION NUMBER(S): [id number] ORDERING CLINICIAN: SRIRAM OLEARY TECHNIQUE: CT of [...] cirrhosis, recent paracentesis. COMPARISON: None. ACCESSION NUMBER(S): [id number] ORDERING CLINICIAN: SRIRAM OLEARY TECHNIQUE: CT of [...] Yohana Huang 10/04/2024 2:28 PM Dictation workstation: [id number] [facility] Work Phone: Radiology Study observation (narrative) [facility] Work Phone: CT Abdomen and Pelvis W cont rast IVOrdered By: Yohana Huang on 10-04-2024 [facility] Work Phone: Cell count panel (Body fld)O rdered By: Fortino Mcgee on 10-04-2024 Clarity (Body fld) Hazy Abnormal Clear [facility] Color (Body fld) Straw Colorless, Straw, Yellow [facility] Interpretation and review of laboratory results Abnormal [facility] RBC Auto (Body fld) [#/Vol] 2000 /uL see comment [facility] WBC (Body fld) [#/Vol] 0.058 10*3/uL See Commen t [facility] Body Fluid cell coun t reference ranges have not been established by [facility]. Reference ranges provided are based on published references. [place] Cell count panel (Body fld)o n 10-04-2024 Clarity (Body fld) Hazy Abnormal Clear [facility] Comment on above: Order Comment: Body Fluid cell count reference ranges have not been established by [facility]. Reference ranges provided are based on published references. Performed By: #### 3 4556-1 #### GOMES ALYSSA ([id number]) [facility] ([facility]) [address] [place] [address] Color (Body fld) Straw Normal Colorless, Straw, Yellow [facility] Comment on above: Order Comment: Body Fluid cell count reference ranges have not been established by [facility]. Reference ranges provided are based on published references. Performed By: #### 3 4556-1 #### MIREYA SHAH ([id number]) [facility] ([facility]) [address] [place] [address] RBC Auto (Body fld) [#/Vol] 2000 /uL Normal see comment [facility] Comment on above: Order Comment: Body Fluid cell count reference ranges have not been established by [facility]. Reference ranges provided are based on published references. Performed By: #### 3 4556-1 #### MIREYA SHAH ([id number]) [facility] ([facility]) [address] [place] [address] WBC (Body fld) [#/Vol] 0.058 10*3/uL Normal See Commevelin t [facility] Comment on above: Order Comment: Body Fluid cell count reference ranges have not been established by [facility]. Reference ranges provided are based on published references. Performed By: #### 3 4556-1 #### MIREYA SHAH ([id number]) [facility] ([facility]) [address] [place] [address] Coagulation surface inducedo n 10-04-2024 aPTT Coag (PPP) [Time] 40 s High 26-36 [facility] Comment on above: Order Comment: The A PTT is no longer used for monitoring Unfractionated Heparin Therapy. For monitoring Heparin Therapy, use the Heparin Assay. Performed By: #### 1 4979-9 #### MIREYA SHAH ([id number]) [facility] ([facility]) [address] [place] [address] Coagulation tissue factor in ducedon 10-04-2024 PT Coag (PPP) [Time] 23.6 s High 9.8-12.4 [facility] Comment on above: Performed By: #### 5 902-2 #### MIREYA SHAH ([id number]) [facility] ([facility]) [address] [place] [address] Differential panel (Body fld )on 10-04-2024 Basophils/100 WBC (Body fld) 0 % not established [facility] Blasts/100 WBC Manual cnt (Body fld) 0 % not established [facility] Cells Counted Total (Body fld) [#] 100 [facility] Eosinophils/100 WBC Manual cnt (Body fld) 0 % see comment [facility] Immature Granulocytes %, Manual, Fluid 0 % not established [facility] Interpretation and review of laboratory results Abnormal [facility] Lymphocytes/100 WBC Manual cnt (Body fld) 19 % see comment [facility] Monocytes+Macrophages/1 00 WBC Manual cnt (Body fld) 17 % see comment [facility] Neutrophils/100 WBC (Body fld) 40 % see comment [facility] Other cells/100 WBC Manual cnt (Body fld) 24 % High not established [facility] Comment on above: Mesothelial cells no tianna by tech Plasma cells/100 WBC Manual cnt (Body fld) 0 % not established [facility] Body Fluid cell differential reference ranges have not been established by [facility]. Reference ranges provided are based on published references. [place] Basophils/100 WBC (Body fld) 0 % Normal not established [facility] Comment on above: Order Comment: Body Fluid cell differential reference ranges have not been established by [facility]. Reference ranges provided are based on published references. Performed By: #### 2 9580-8 #### MIREYA SHAH ([id number]) [facility] ([facility]) [address] [place] [address] Blasts/100 WBC Manual cnt (Body fld) 0 % Normal not established [facility] Comment on above: Order Comment: Body Fluid cell differential reference ranges have not been established by [facility]. Reference ranges provided are based on published references. Performed By: #### 2 9580-8 #### MIREYA SHAH ([id number]) [facility] ([facility]) [address] [place] [address] Cells Counted Total (Body fld) [#] 100 Normal [facility] Comment on above: Order Comment: Body Fluid cell differential reference ranges have not been established by [facility]. Reference ranges provided are based on published references. Performed By: #### 2 9580-8 #### MIREYA SHAH ([id number]) [facility] ([facility]) [facility] [place] [address] Eosinophils/100 WBC Manual cnt (Body fld) 0 % Normal see comment [facility] Comment on above: Order Comment: Body Fluid cell differential reference ranges have not been established by [facility]. Reference ranges provided are based on published references. Performed By: #### 2 9580-8 #### MIREYA SHAH ([id number]) [facility] ([facility]) [address] [place] [address] IMMATURE GRANULOCYTES IN FLUID 0 % Normal not established [facility] Comment on above: Order Comment: Body Fluid cell differential reference ranges have not been established by [facility]. Reference ranges provided are based on published references. Performed By: #### 2 9580-8 #### MIREYA SHAH ([id number]) [facility] ([facility]) [address] [place] [phone] Lymphocytes/100 WBC Manual cnt (Body fld) 19 % Normal see comment [facility] Comment on above: Order Comment: Body Fluid cell differential reference ranges have not been established by [facility]. Reference ranges provided are based on published references. Performed By: #### 2 9580-8 #### MIREYA SHAH ([id number]) [facility] ([facility]) [address] [place] [address] Monocytes+Macrophages/1 00 WBC Manual cnt (Body fld) 17 % Normal see comment [facility] Comment on above: Order Comment: Body Fluid cell differential reference ranges have not been established by [facility]. Reference ranges provided are based on published references. Performed By: #### 2 9580-8 #### MIREYA SHAH ([id number]) [facility] ([facility]) [address] [place] [address] Neutrophils/100 WBC (Body fld) 40 % Normal see comment [facility] Comment on above: Order Comment: Body Fluid cell differential reference ranges have not been established by [facility]. Reference ranges provided are based on published references. Performed By: #### 2 9580-8 #### MIREYA SHAH ([id number]) [facility] ([facility]) [address] [place] [id number] Other cells/100 WBC Manual cnt (Body fld) 24 % High not established [facility] Comment on above: Order Comment: Body Fluid cell differential reference ranges have not been established by [facility]. Reference ranges provided are based on published references. Result Comment: Meso thelial cells noted by tech Performed By: #### 2 9580-8 #### MIREYA SHAH ([id number]) [facility] ([facility]) [address] [place] [address] Plasma cells/100 WBC Manual cnt (Body fld) 0 % Normal not established [facility] Comment on above: Order Comment: Body Fluid cell differential reference ranges have not been established by [facility]. Reference ranges provided are based on published references. Performed By: #### 2 9580-8 #### MIREYA SHAH ([id number]) [facility] ([facility]) [address] [place] [address] Glucoseon 10-04-2024 Glucose (Body fld) [Mass/Vol] 200 mg/dL Normal Not established [facility] Comment on above: Order Comment: Venip uncture immediately after or during the administration of Metamizole may lead to falsely low results. Testing should be performed immediately prior to Metamizole dosing. Performed By: #### 2 524-7 #### MIREYA SHAH ([id number]) [facility] ([facility]) [address] [place], [place] [id number] Hepatic function 2000 panelo n 10-04-2024 Albumin BCP dye [Mass/Vol] 2.4 g/dL Low 3.4 - 5.0 g/dL [facility] ALP [Catalytic activity/Vol] 212 U/L High 33 - 120 U/L [facility] ALT With P-5'-P [Catalytic activity/Vol] 46 U/L 10 - 52 U/L [facility] Comment on above: Patients treated wit h Sulfasalazine may generate falsely decreased results for ALT. AST With P-5'-P [Catalytic activity/Vol] 49 U/L High 9 - 39 U/L [facility] Bilirubin [Mass/Vol] 1.8 mg/dL High 0.0 - 1 .2 mg/dL [facility] Bilirubin.direct [Mass/Vol] 0.7 mg/dL High 0.0 - 0.3 mg/dL [facility] Protein [Mass/Vol] 5.7 g/dL Low 6.4 - 8.2 g/dL [facility] Albumin BCP dye [Mass/Vol] 2.4 g/dL Low 3.4-5.0 [facility] Comment on above: Performed By: #### 2 5-3 #### MIREYA SHAH ([id number]) [facility] ([facility]) [address] [place] [phone] ALP [Catalytic activity/Vol] 212 U/L High 33-120 [facility] Comment on above: Performed By: #### 2 5-3 #### MIREYA SHAH ([id number]) [facility] ([facility]) [address] [place] [address] ALT With P-5'-P [Catalytic activity/Vol] 46 U/L Normal 10-52 [facility] Comment on above: Result Comment: Argenis ents treated with Sulfasalazine may generate falsely decreased results for ALT. Performed By: #### 2 5-3 #### MIREYA SHAH ([id number]) [facility] ([facility]) [address] [place] [phone] AST With P-5'-P [Catalytic activity/Vol] 49 U/L High 9-39 [facility] Comment on above: Performed By: #### 2 5-3 #### MIREYA SHAH ([id number]) [facility] ([facility]) [address] [place] [address] Bilirubin [Mass/Vol] 1.8 mg/dL High 0.0-1.2 [facility] Comment on above: Performed By: #### 2 4325-3 #### MIREYA SHAH ([id number]) [facility] ([facility]) [address] [place] [address] Bilirubin.direct [Mass/Vol] 0.7 mg/dL High 0.0-0.3 [facility] Comment on above: Performed By: #### 2 4325-3 #### MIREYA SHAH ([id number]) [facility] ([facility]) [address] [place] [address] Protein [Mass/Vol] 5.7 g/dL Low 6.4-8.2 [facility] Comment on above: Performed By: #### 2 4325-3 #### MIREYA SHAH ([id number]) [facility] ([facility]) [address] [place] [address] Lactateon 10-04-2024 Lactate [Moles/Vol] 2 mmol/L 0.4 - 2. 0 mmol/L [facility] Lactate [Moles/Vol] 2.0 mmol/L Normal 0.4-2.0 [facility] Comment on above: Order Comment: Venip uncture immediately after or during the administration of Metamizole may lead to falsely low results. Testing should be performed immediately prior to Metamizole dosing. Performed By: #### 2 524-7 #### MIREYA SHAH ([id number]) [facility] ([facility]) [address] [place] [address] Lactate [Moles/Vol]on 2024 Interpretation and review of laboratory results Normal [facility] Venipuncture immedia tely after or during the administration of Metamizole may lead to falsely low results. Testing should be performed immediately prior to Metamizole dosing. [place] Lactate dehydrogenaseon LDH Lactate to pyruvate reaction (Body fld) [Catalytic activity/Vol] <25 Normal Not established. [facility] Comment on above: Order Comment: Venip uncture immediately after or during the administration of Metamizole may lead to falsely low results. Testing should be performed immediately prior to Metamizole dosing. Performed By: #### 2 524-7 #### MIREYA SHAH ([id number]) [facility] ([facility]) [address] [place] [address] Lipaseon 10-04-2024 Lipase [Catalytic activity/Vol] 56 U/L 9 - 82 U/L [facility] Lipase [Catalytic activity/V ol]on 10-04-2024 Interpretation and review of laboratory results Normal [facility] Venipuncture immedia tely after or during the administration of Metamizole may lead to falsely low results. Testing should be performed immediately prior to Metamizole dosing. 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 ASCITIC FLUID: - NO MALIGNANT CELLS IDENTIFIED. Note: This case has been evaluated using a concentrated (ThinPrep) preparation. Laboratory comment SEE COMMENT Slide(s) initially screened by ABEL Castro at [address] [id number] By the signature on this report, the [...] Pap Stain NGYN ThinPrep Normal [facility] PT Coag (PPP) [Time]on 10-04 INR Coag (PPP) [Relative time] 2.1 {INR} High 0.9 - 1.1 [facility] INR Coag (PPP) [Relative time] 2.1 High 0.9-1.1 [facility] Comment on above: Performed By: #### 5 902-2 #### MIREYA SHAH ([id number]) [facility] ([facility]) [facility] [place] [address] Paracentesison 10-04-2024 Joey Huang DO 10/04/2024 5:18 PM Paracentesis Date/Time: 10/04/2024 5:17 PM Performed by: Joey Huang DO Authorized by: Joey Huang DO Consent: Consent obtained: Written Consent given by: Patient Risks, benefits, and alternatives were discussed: yes Risks discussed: Bleeding, bowel perforation and infection Alternatives discussed: No treatment [place] protocol: Procedure explained and questions answered to [...] Adhesive bandage Post-procedure details: Procedure completion: [place] [facility] Work Phone: [facility] Work Phone: Proteinon 10-04-2024 Protein (Body fld) [Mass/Vol] g/dL Normal Not established [facility] Comment on above: Order Comment: Venip uncture immediately after or during the administration of Metamizole may lead to falsely low results. Testing should be performed immediately prior to Metamizole dosing. Performed By: #### 2 524-7 #### MIREYA SHAH ([id number]) [facility] ([facility]) [facility] [place] [id number] Protime-INRon 10-04-2024 PT Coag (PPP) [Time] 23.6 s High [facility] Triacylglycerol lipaseon Lipase [Catalytic activity/Vol] 56 U/L Normal 9-82 [facility] Comment on above: Order Comment: Venip uncture immediately after or during the administration of Metamizole may lead to falsely low results. Testing should be performed immediately prior to Metamizole dosing. Performed By: #### 3 040-3 #### MIREYA SHAH ([id number]) [facility] ([facility]) [facility] [place] [address] aPTT Coag (PPP) [Time]on The APTT is no longe r used for monitoring Unfractionated Heparin Therapy. For monitoring Heparin Therapy, use the Heparin Assay. [facility] pHon 10-04-2024 pH (Body fld) 7.82 Normal See Below [facility] Comment on above: Order Comment: Venip uncture immediately after or during the administration of Metamizole may lead to falsely low results. Testing should be performed immediately prior to Metamizole dosing. Performed By: #### 2 524-7 #### MIREYA SHAH ([id number]) [facility] ([facility]) [address] [place] [address] Glucose measurement at [facility] deOrdered By: Boone Izquierdo on 09-14-2024 Bedside Glucose (Misc Panel) 134 mg/dL High 74-106 [facility] Comment on above: MANAGEMENT OF PATIEN T CARE PER NURSING PROTOCOL Glucose [Mass/Vol] 134 mg/dL High 74-106 [facility] Glucose measurement at bedside 134 mg/dL High 74-106 [facility] Blood urea nitrogen (BUN)/cr eatinine ratioOrdered By: Jae Ash on 09-12-2024 Urea nitrogen/Creatinine [Mass ratio] 7.6 mg/mg Low 10-20 [facility] Blood urea nitrogen (BUN)/creatinine ratio 7.6 RATIO Low 10-20 [facility] Calcium [Mass/Vol]Ordered By : Jae Ash on 09-12-2024 Serum or plasma calcium measurement (mass/volume) 8.1 mg/dL Low 8.5-10.1 [facility] Carbon dioxide measurementOr dered By: Jae Ash on 09-12-2024 CO2 [Moles/Vol] 20.0 mmol/L Low 21.0-32.0 [facility] Carbon dioxide measurement 20.0 mmol/L Low 21.0-32.0 [facility] Chloride measurementOrdered By: Jae Ash on 09-12-2024 Chloride [Moles/Vol] 109 mmol/L High 98-107 [facility] Chloride measurement 109 mmol/L High 98-107 [facility] Creatinine [Mass/Vol]Ordered By: Jae Ash on 09-12-2024 Serum or plasma creatinine measurement (mass/volume) 0.92 mg/dL 0.70-1.30 [facility] Erythrocyte distribution wid th (RBC) [Ratio]Ordered By: Jae Ash on 09-12-2024 Erythrocyte distribution width ratio 19.7 % High 11.6-14.6 [facility] Erythrocyte distribution width standard deviation 63.5 fl High 35.1-43.9 [facility] Erythrocyte distribution wid th ratioOrdered By: Jae Ash on 09-12-2024 Erythrocyte distribution width (RBC) [Ratio] 19.7 % High 11.6-14.6 [facility] Erythrocyte distribution wid th standard deviationOrdered By: Jae Ash on 09-12-2024 Erythrocyte distribution width (RBC) [Entitic vol] 63.5 fL High 35.1-43.9 [facility] Erythrocyte distribution width (RBC) [Ratio] 63.5 fl High 35.1-43.9 [facility] Estimated glomerular filtrat ion rate (GFR) AmericanOrdered By: Jae Ash on 09-12-2024 Estimated GFR (MDRD) Amer 108 mL/min >60 [facility] Comment on above: GFR Calc Estimated glomerular filtration rate (GFR) 108 mL/min >60 [facility] Estimation of creatinine [place] aranceOrdered By: Jae Ash on 09-12-2024 Estimated Creatinine Clearance Calc 71.80 ml/min [facility] Estimation of creatinine clearance 71.80 ml/min [facility] Glomerular filtration rate ( GFR) estimationOrdered By: Jae Ash on 09-12-2024 Estimated GFR (MDRD) Non-Af Amer 89 mL/min >60 [facility] Comment on above: Non- GFR Calc GFR/1.73 sq M.predicted among non-blacks MDRD (S/P/Bld) [Vol rate/Area] 89 mL/min/{1.73_m2} >60 [facility] Glomerular filtration rate (GFR) estimation 89 mL/min >60 [facility] Glucose measurementOrdered B y: Jae Ash on 09-12-2024 Glucose [Mass/Vol] 149 mg/dL High 74-106 [facility] Comment on above: Fasting Glucose resu lt greater than or equal to 126 mg/dL suggests DIABETES MELLITUS per A.D.A. criteria. Glucose measurement 149 mg/dL High 74-106 [facility] Hematocrit Auto (Bld) [Volum e fraction]Ordered By: Jae Ash on 09-12-2024 Hematocrit (Bld) [Volume fraction] 25.8 % Low 40-54 [facility] Automated blood hematocrit (percentage) 25.8 % Low 40-54 [facility] Hemoglobin measurementOrdere d By: Jae Ash on 09-12-2024 Hemoglobin (Bld) [Mass/Vol] 8.1 g/dL Low 13.0-16.5 [facility] Hemoglobin measurement 8.1 g/dL Low 13.0-16.5 [facility] MCV (RBC) [Entitic vol]Order ed By: Jae Ash on 09-12-2024 MCV (mean corpuscular volume) determination 90.5 fL 80-94 [facility] MCV (mean corpuscular volume ) determinationOrdered By: Jae Ash on 09-12-2024 MCV (RBC) [Entitic vol] 90.5 fL 80-94 [facility] Mean corpuscular hemoglobin (MCH) determinationOrdered By: Jae Ash on 09-12-2024 MCH (RBC) [Entitic mass] 28.4 pg 27.0-32.0 [facility] Mean corpuscular hemoglobin (MCH) determination 28.4 pg 27.0-32.0 [facility] Mean corpuscular hemoglobin concentration (MCHC) determinationOrdered By: Jae Ash on 09-12-2024 MCHC (RBC) [Mass/Vol] 31.4 g/dL Low 32-36 [facility] Comment on above: Delta: 33.1 on 09/10 Mean corpuscular hemoglobin concentration (MCHC) determination 31.4 g/dL Low 32-36 [facility] Mean platelet volume determi nationOrdered By: Jae Ash on 09-12-2024 Platelet mean volume (Bld) [Entitic vol] 11.9 fL 6.2-12.0 [facility] Mean platelet volume determination 11.9 fl 6.2-12.0 [facility] Platelet countOrdered By: Sky Ash on 09-12-2024 Platelets (Bld) [#/Vol] 115 10*3/uL Low 150-450 [facility] Platelet count 115 K/mm3 Low 150-450 [facility] Potassium measurementOrdered By: Jae Ash on 09-12-2024 Potassium [Moles/Vol] 3.4 mmol/L Low 3.5-5.1 [facility] Potassium measurement 3.4 mmol/L Low 3.5-5.1 [facility] RBC Auto (Bld) [#/Vol]Ordere d By: Jae Ash on 09-12-2024 RBC (Bld) [#/Vol] 2.85 10*6/uL Low 4.6-6.2 [facility] Automated blood erythrocyte count 2.85 M/mm3 Low 4.6-6.2 [facility] Serum anion gap measurementO rdered By: Jae Ash on 09-12-2024 Anion gap [Moles/Vol] 7 mmol/L 5-15 [facility] Serum anion gap measurement 7 5-15 [facility] Serum or plasma calcium roosevelt urement (mass/volume)Ordered By: Jae Ash on 09-12-2024 Calcium [Mass/Vol] 8.1 mg/dL Low 8.5-10.1 [facility] Serum or plasma creatinine m easurement (mass/volume)Ordered By: Jae Ash on 09-12-2024 Creatinine [Mass/Vol] 0.92 mg/dL 0.70-1.30 [facility] Comment on above: The validity of the calculated GFR & GFRAA in patients over 70 years has not been determined. Clinical correlation is essential. Serum or plasma urea nitroge n measurement (mass/volume)Ordered By: Jae Ash on 09-12-2024 Urea nitrogen [Mass/Vol] 7 mg/dL 7-18 [facility] Sodium levelOrdered By: Pasha Ash on 09-12-2024 Sodium [Moles/Vol] 136 mmol/L 136-145 [facility] Sodium level 136 mmol/L 136-145 [facility] Urea nitrogen [Mass/Vol]Orde red By: Jae Ash on 09-12-2024 Serum or plasma urea nitrogen measurement (mass/volume) 7 mg/dL 02-18 [facility] White blood cell (WBC) count Ordered By: Jae Ash on 09-12-2024 WBC (Bld) [#/Vol] 7.4 10*3/uL 4.4-11.0 [facility] White blood cell (WBC) count 7.4 K/mm3 4.4-11.0 [facility] Serum or plasma trough vanco mycin levelOrdered By: Thai Thurston on 09-10-2024 Vancomycin trough [Mass/Vol] 15.7 ug/mL High 5.0-15.0 [facility] Vancomycin trough [Mass/Vol] Ordered By: Thai Thurston on 09-10-2024 Vancomycin Level Trough 15.7 ug/mL High 5.0-15.0 [facility] Comment on above: VANCOMYCIN STANDARED DRUG THERAPY TROUGH LEVEL: 5.0 - 15.0 mg/L VANCOMYCIN HIGH INTENSITY THERAPY TROUGH LEVEL: 15.0 - 20.0 mg/L High Intensity therapy recommended for serious lifethreatening infections include:- Sjbotfrjsd-Dqtuyferzymv-Vndnezkab (Ventilator/Healtcare Associated)-Sepsis PLEASE CONTACT PHARMACY SERVICES (#[id number]) FOR INTERPRETATIONOF RESULTS. Serum or plasma trough vancomycin level 15.7 ug/mL High 5.0-15.0 [facility] Serum or plasma vancomycin l evel (mass/volume)Ordered By: Maria Guadalupe Shore on 09-08-2024 Vancomycin [Mass/Vol] 16.5 ug/mL High 0.0-15.0 [facility] Vancomycin [Mass/Vol]Ordered By: Maria Guadalupe Shore on 09-08-2024 Random Vancomycin Level 16.5 ug/mL High 0.0-15.0 [facility] Comment on above: VANCOMYCIN STANDARD DRUG THERAPY: CRITICAL VALUE IS > 15.0 mg/L VANCOMYCIN HIGH INTENSITY THERAPY: CRITICAL VALUE IS > 20.0 mg/L PLEASE CONTACT PHARMACY SERVICES (#[id number]) FOR INTERPRETATIONOF RESULTS. THIS RESULT DOES NOT REPRESENT A PEAK OR TROUGHLEVEL FOR THIS DRUG. Serum or plasma vancomycin level (mass/volume) 16.5 ug/mL High 0.0-15.0 [facility] Absolute lymphocyte countOrd ered By: Anurag Irene on 09-07-2024 Lymphocytes Auto (Unsp spec) [#/Vol] 0.95 10*3/uL 0.83-4.51 [facility] Absolute neutrophil countOrd ered By: Anurag Irene on 09-07-2024 Neutrophils (Bld) [#/Vol] 13.3 10*3/uL High 2.0-7.7 [facility] Absolute neutrophil count 13.3 X10^3/uL High 2.0-7.7 [facility] Automated lymphocyte count a s percentage of total leukocytesOrdered By: Anurag Irene on 09-07-2024 Lymphocytes/100 WBC Auto (Unsp spec) 5.8 % Low 19-41 [facility] Basophil percentageOrdered B y: Anurag Irene on 09-07-2024 Basophils/100 WBC (Bld) 0.4 % 0-1 [facility] Basophil [facility] 0.4 % 0-1 [facility] Eosinophil percentageOrdered By: Anurag Irene on 09-07-2024 Eosinophils/100 WBC (Bld) 3.0 % 0-5 [facility] Eosinophil percentage 3.0 % 0-5 [facility] Immature granulocytes/100 WB C Auto (Bld)Ordered By: Anurag Irene on 09-07-2024 Immature granulocytes/100 WBC (Bld) 1.400 % High 0.0-0.9 [facility] Comment on above: IG% - Immature Granu locytes (promyelocytes, myelocytes and metamyelocytes) > 1% indicates that a LEFT SHIFT is Present. Automated immature granulocyte percentage 1.400 % High 0.0-0.9 [facility] Lymphocytes Auto (Unsp spec) [#/Vol]Ordered By: Anurag Irene on 09-07-2024 Lymphocytes (Bld) [#/Vol] 0.95 10*3/uL 0.83-4.51 [facility] Absolute lymphocyte count 0.95 X10^3/uL 0.83-4.51 [facility] Lymphocytes/100 WBC Auto (Un sp spec)Ordered By: Anurag Irene on 09-07-2024 Lymphocytes/100 WBC (Bld) 5.8 % Low 19-41 [facility] Automated lymphocyte count as percentage of total leukocytes 5.8 % Low 19-41 [facility] Monocyte percentageOrdered B y: Anurag Irene on 09-07-2024 Monocytes/100 WBC (Bld) 8.6 % 0-10 [facility] Monocyte percentage 8.6 % 0-10 [facility] Neutrophil percentageOrdered By: Anurag Irene on 09-07-2024 Neutrophils/100 WBC (Bld) 80.8 % High 47-70 [facility] Neutrophil percentage 80.8 % High 47-70 [facility] Nucleated red blood cell per centageOrdered By: Anurag Irene on 09-07-2024 Nucleated RBC/100 WBC (Bld) [Ratio] 0 % 0-5 [facility] Nucleated red blood cell percentage 0 % 0-5 [facility] Blood cultureOrdered By: [place] Irene on 09-06-2024 Bacteria identified Cx Nom (Bld) No growth in 5 days. [facility] Blood culture No growth in 5 days. [facility] Blood cultureOrdered By: Shi Joiner on 09-05-2024 Bacteria identified Cx Nom (Bld) Staphylococcus epidermidis Abnormal [facility] Blood culture Staphylococcus epidermidis Abnormal [facility] Folic acid measurementOrdere d By: Hill Wright on 09-05-2024 Folate 30.10 ng/mL 3.1-55.4 [facility] Folic acid measurement 30.10 ng/mL 3.1-55.4 [facility] Lactic acid measurementOrder ed By: Hill Wright on 09-05-2024 Lactate [Moles/Vol] 2.3 mmol/L High 0.4-2.0 [facility] Comment on above: Critical Result(s) C alled at: 08:26:40 09/05/2024 by: Lucy Haque to [facility]. Results read back by same. Lactic acid measurement 2.3 mmol/L High 0.4-2.0 [facility] Serum ethanol measurementOrd ered By: Hill Wright on 09-05-2024 Ethyl Alcohol Level 4.0 mg/dL [facility] Comment on above: The serum:whole bloo d ethanol ratio is approximately 1.14and varies slightly with hematocrit. Medical Alcohol reference interval and critical value innon-tolerant individuals; 50 - 100 Impairment 100 Intoxication 100 - 250 Severe Poisoning 250 - 400 Deep/possible fatal coma Serum ethanol measurement 4.0 mg/dL [facility] Vitamin B12 measurementOrder ed By: Hill Wright on 09-05-2024 Vitamin B12 Level > 2000 pg/mL High 211-911 [facility] Vitamin B12 measurement > 2000 pg/mL High 211-911 [facility] ALP [Catalytic activity/Vol] Ordered By: Rachel Joiner on 09-04-2024 Serum or plasma alkaline phosphatase measurement 269 U/L High 45-117 [facility] ALT [Catalytic activity/Vol] Ordered By: Rachel Joiner on 09-04-2024 Serum or plasma alanine aminotransferase (ALT) measurement 79 U/L High 16-61 [facility] Albumin [Mass/Vol]Ordered By : Rachel Joiner on 09-04-2024 Serum or plasma albumin measurement (mass/volume) 2.0 g/dL Low 3.2-5.0 [facility] Bilirubin Test strip Ql (U)O rdered By: Rachel Joiner on 09-04-2024 Bilirubin Ql (U) 1 mg/dL High Negative [facility] Comment on above: COLOR OF URINE MAY A FFECT DIPSTICK RESULTS. Bilirubin directOrdered By: Rachel Joiner on 09-04-2024 Bilirubin.direct [Mass/Vol] 1.80 mg/dL High 0.00-0.30 [facility] Bilirubin, totalOrdered By: Rachel Joiner on 09-04-2024 Bilirubin [Mass/Vol] 3.10 mg/dL High 0.20-1.00 [facility] Comment on above: For patients on eltr ombopag therapy, use of Dimension [place] TBIL is not recommended. Bilirubin, total 3.10 mg/dL High 0.20-1.00 [facility] Bilirubin.direct [Mass/Vol]O rdered By: Rachel Joiner on 09-04-2024 Bilirubin direct 1.80 mg/dL High 0.00-0.30 [facility] Blood cultureOrdered By: Shi Joiner on 09-04-2024 Bacteria identified Cx Nom (Bld) [facility] Clarity (U)Ordered By: Kaz Joiner on 09-04-2024 Urine clarity Clear Clear [facility] Color (U)Ordered By: Rachel Joiner on 09-04-2024 Urine color determination Yellow Yellow [facility] Epithelial cells.squamous LM Ql (Urine sed)Ordered By: Rachel Joiner on 09-04-2024 Epithelial cells.squamous LM.HPF (Urine sed) [#/Area] 0 /[HPF] 0-5 [facility] Glucose Ql (U)Ordered By: Brendan Joiner on 09-04-2024 Urine Glucose (UA) Normal mg/dl Normal [facility] Urine glucose detection Normal mg/dl Normal [facility] HbA1c (Bld) [Mass fraction]O rdered By: Hill Wright on 09-04-2024 Hemoglobin A1c percentage 7.3 % High 3.8-5.6 [facility] Hemoglobin A1c percentageOrd ered By: Hill Wright on 09-04-2024 HbA1c (Bld) [Mass fraction] 7.3 % High 3.8-5.6 [facility] Comment on above: Normal < 5.7 % Predi abetic 5.7 - 6.4 % Diabetic >or= 6.5 % Please note range changes. Ketones Test strip Ql (U)Ord ered By: Rachel Joiner on 09-04-2024 Ketones Ql (U) Negative Negative [facility] Laboratory - Chemistry and C hemistry - challengeOrdered By: Rachel Joiner on 09-04-2024 AST [Catalytic activity/Vol] 156 U/L High 15-37 [facility] Leukocyte esterase Test stri p Ql (U)Ordered By: Rachel Joiner on 09-04-2024 Urine leukocyte esterase detection by dipstick 100 /ul High Negative [facility] Methadone, urineOrdered By: Rachel Joiner on 09-04-2024 Urine Methadone Screen Negative < 300 ng/mL [facility] Microorganism identified Cx Nom (Unsp spec)Ordered By: Rachel Joiner on 09-04-2024 Bacteria Detection (PCR) Staphylococcus epidermidis Abnormal [facility] Bacteria Detection (PCR) mecA Resistance Marker Abnormal [facility] Organism identification mecA Resistance Marker Abnormal [facility] Microscopic analysis of urin e for red blood cells (RBC)Ordered By: Rachel Joiner on 09-04-2024 Urine RBC 10-25 SEEN /hpf 0-5 [facility] Microscopic analysis of urine for red blood cells (RBC) 10-25 SEEN /hpf 0-5 [facility] Mucus LM Ql (Urine sed)Order ed By: Rachel Joiner on 09-04-2024 Mucus Ql (Urine sed) 0 SEEN /hpf [facility] Nitrite Test strip Ql (U)Ord ered By: Rachel Joiner on 09-04-2024 Nitrite Ql (U) Negative Negative [facility] No Panel InformationOrdered By: Rachel Joiner on 09-04-2024 156 U/L High 15-37 [facility] Urine Drug Screen Comment [facility] Comment on above: CONFIRMATORY TESTING FOR [...] MUST BE ORDERED SEPARATELY. USE TESTMNEMONIC: UTCA [facility] Organism identificationOrder ed By: Rachel Joiner on 09-04-2024 Microorganism identified Cx Nom (Unsp spec) Staphylococcus epidermidis Abnormal [facility] Microorganism identified Cx Nom (Unsp spec) mecA Resistance Marker Abnormal [facility] Protein Test strip Ql (U)Ord ered By: Rachel Joiner on 09-04-2024 Protein Ql (U) 30 mg/dl High Negative [facility] Urine protein assay by test strip, semi-quantitative 30 mg/dl High Negative [facility] Quantitative urine opiates m easurementOrdered By: Rachel Joiner on 09-04-2024 Opiates Ql (U) Positive High < 300 ng/mL [facility] Quantitative urine opiates measurement Positive High < 300 ng/mL [facility] Screening prostate specific antigen (PSA) measurementOrdered By: Hill Wright on 09-04-2024 Prostate Specific Antigen Screen 1.41 ng/mL 0.00-4.00 [facility] Comment on above: This test was perfor med using the TPSA assay method for [email or web address] chemistry system. Values obtained with differentassay methods cannot be used interchangably.When changing PSA assays in the course of monitoring apatient, additional sequential testing should be carriedout to confirm baseline values. Screening prostate specific antigen (PSA) measurement 1.41 ng/mL 0.00-4.00 [facility] Serum globulin measurementOr dered By: Rachel Joiner on 09-04-2024 Globulin (S) [Mass/Vol] 4.1 g/dL 2.2-4.2 [facility] Serum globulin measurement 4.1 g/dL 2.2-4.2 [facility] Serum or plasma alanine thomas otransferase (ALT) measurementOrdered By: Rachel Joiner on 09-04-2024 ALT [Catalytic activity/Vol] 79 U/L High 16-61 [facility] Serum or plasma albumin roosevelt urement (mass/volume)Ordered By: Rachel Joiner on 09-04-2024 Albumin [Mass/Vol] 2.0 g/dL Low 3.2-5.0 [facility] Serum or plasma alkaline kendrick sphatase measurementOrdered By: Rachel Joiner on 09-04-2024 ALP [Catalytic activity/Vol] 269 U/L High 45-117 [facility] Serum or plasma thyroid stim ulating hormone (TSH) measurement (units/volume)Ordered By: Hill Wright on 09-04-2024 TSH Qn 0.826 uIU/mL 0.358-3.740 [facility] Specific gravity (U) [Rel de nsity]Ordered By: Rachel Joiner on 09-04-2024 Urine specific gravity measurement 1.020 1.002-1.030 [facility] Squamous epithelial cells de tection in urine sediment by light microscopyOrdered By: Rachel Joiner on 09-04-2024 Epithelial cells.squamous LM Ql (Urine sed) 0 SEEN /hpf 0-5 [facility] Squamous epithelial cells detection in urine sediment by light microscopy 0 SEEN /hpf [facility] TSH QnOrdered By: Hill patino on 09-04-2024 Thyroid Stimulating Hormone (TSH) 0.826 uIU/mL 0.358-3.740 [facility] Serum or plasma thyroid stimulating hormone (TSH) measurement (units/volume) 0.826 uIU/mL 0.358-3.740 [facility] Total proteinOrdered By: Shi Joiner on 09-04-2024 Protein [Mass/Vol] 6.1 g/dL Low 6.4-8.2 [facility] Total protein 6.1 g/dL Low 6.4-8.2 [facility] Urine amphetamine measuremen tOrdered By: Rachel Joiner on 09-04-2024 Amphetamines Ql (U) Negative <1000 ng/mL [facility] Urine barbiturates measureme ntOrdered By: Rachel Joiner on 09-04-2024 Urine Barbiturates Screen Negative < 200 ng/mL [facility] Urine benzodiazepine levelOr dered By: Rachel Joiner on 09-04-2024 Benzodiazepines Ql (U) Negative < 200 ng/mL [facility] Urine blood detectionOrdered By: Rachel Joiner on 09-04-2024 Urine Occult Blood 150 /ul High Negative [facility] Urine blood detection 150 /ul High Negative [facility] Urine clarityOrdered By: Shi Joiner on 09-04-2024 Clarity (U) Clear Clear [facility] Urine cocaine levelOrdered B y: Rachel Joiner on 09-04-2024 Cocaine Ql (U) Negative < 300 ng/mL [facility] Urine color determinationOrd ered By: Rachel Joiner on 09-04-2024 Color (U) Yellow Yellow [facility] Urine cultureOrdered By: Hugo Wright on 09-04-2024 Bacteria identified Cx Nom (U) Staphylococcus epidermidis Abnormal [facility] Urine culture Staphylococcus epidermidis Abnormal [facility] Urine [id number] abinol (THC) measurementOrdered By: Rachel Joiner on 09-04-2024 Cannabinoids Screen Ql (U) Negative < 50 ng/mL [facility] Urine glucose detectionOrder ed By: Rachel Joiner on 09-04-2024 Glucose Ql (U) Normal mg/dl Normal [facility] Urine ketones detection by t est stripOrdered By: Rachel Joiner on 09-04-2024 Urine ketones detection by test strip Negative < 50 ng/mL [facility] Urine leukocyte esterase det ection by dipstickOrdered By: Rachel Joiner on 09-04-2024 Leukocyte esterase Test strip Ql (U) 100 /ul High Negative [facility] Urine methylenedioxymethamph etamine (MDMA) measurementOrdered By: Rachel Joiner on 09-04-2024 MDMA (Ecstasy) Screen Negative < 500 ng/mL [facility] Urine pHOrdered By: Rachel silva on 09-04-2024 pH (U) 6.0 [pH] 5.0 - 8.0 [facility] Urine phencyclidine (PCP) de tectionOrdered By: Rachel Joiner on 09-04-2024 Phencyclidine Ql (U) Negative < 25 ng/mL [facility] Urine sediment bacteria coun t by microscopy (number/high power field)Ordered By: Rachel Joiner on 09-04-2024 Bacteria LM.HPF (Urine sed) [#/Area] 0 /[HPF] None Seen [facility] Urine specific gravity measu rementOrdered By: Rachel Joiner on 09-04-2024 Specific gravity (U) [Rel density] 1.020 1.002-1.030 [facility] Urine total bilirubin detect ion by test stripOrdered By: Rachel Joiner on 09-04-2024 Urine total bilirubin detection by test strip 1 mg/dL High Normal [facility] Urine urobilinogen measureme ntOrdered By: Rachel Joiner on 09-04-2024 Urobilinogen Ql (U) 1 mg/dl High Normal [facility] Urobilinogen Ql (U)Ordered B y: Rachel Joiner on 09-04-2024 Urobilinogen (U) [Mass/Vol] 1 mg/dL High Normal [facility] Venous blood ammonia measure mentOrdered By: Rachel Joiner on 09-04-2024 Ammonia (P) [Moles/Vol] 26.0 umol/L [facility] Venous blood ammonia measurement 26.0 umol/L [facility] White blood cell countOrdere d By: Rachel Joiner on 09-04-2024 Urine WBC 5-10 SEEN /hpf 0-5 [facility] Comment on above: Previous reported re sult: 0 SEEN /hpfEdited by: DANIEL on 09/04/24:2337 AMENDED REPORT 09/04/242336 WBC previously reported as: 0 SEEN /hpf White blood cell count 5-10 SEEN /hpf 0-5 [facility] White blood cell count 5-10 SEEN /hpf 0-5 [facility] pH (U)Ordered By: Rachel lambert on 09-04-2024 Urine pH 6.0 5.0 - 8.0 [facility] Absolute lymphocyte countOrd ered By: Bola Meraz on 09-02-2024 Lymphocytes Auto (Unsp spec) [#/Vol] 1.04 10*3/uL 0.83-4.51 [facility] Absolute neutrophil countOrd ered By: Bola Meraz on 09-02-2024 Neutrophils (Bld) [#/Vol] 14.0 10*3/uL High 2.0-7.7 [facility] Absolute neutrophil count 14.0 X10^3/uL High 2.0-7.7 [facility] Automated lymphocyte count a s percentage of total leukocytesOrdered By: Bola Meraz on 09-02-2024 Lymphocytes/100 WBC Auto (Unsp spec) 6.3 % Low 19-41 [facility] Basophil percentageOrdered B y: Bola Meraz on 09-02-2024 Basophils/100 WBC (Bld) 0.4 % 0-1 [facility] Basophil percentage 0.4 % 0-1 [facility] Blood urea nitrogen (BUN)/cr eatinine ratioOrdered By: Bola Meraz on 09-02-2024 Urea nitrogen/Creatinine [Mass ratio] 16.9 mg/mg 10- [facility] Blood urea nitrogen (BUN)/creatinine ratio 16.9 RATIO - [facility] Calcium [Mass/Vol]Ordered By : Bola Meraz on 09-02-2024 Serum or plasma calcium measurement (mass/volume) 8.9 mg/dL 8.5-10.1 [facility] Carbon dioxide measurementOr dered By: Bola Meraz on 09-02-2024 CO2 [Moles/Vol] 19.0 mmol/L Low 21.0-32.0 [facility] Carbon dioxide measurement 19.0 mmol/L Low 21.0-32.0 [facility] Chloride measurementOrdered By: Bola Meraz on 09-02-2024 Chloride [Moles/Vol] 107 mmol/L 98-107 [facility] Chloride measurement 107 mmol/L 98-107 [facility] Creatinine [Mass/Vol]Ordered By: Bola Meraz on 09-02-2024 Serum or plasma creatinine measurement (mass/volume) 2.54 mg/dL High 0.70-1.30 [facility] Eosinophil percentageOrdered By: Bola Meraz on 09-02-2024 Eosinophils/100 WBC (Bld) 1.3 % 0-5 [facility] Eosinophil percentage 1.3 % 0-5 [facility] Erythrocyte distribution wid th (RBC) [Ratio]Ordered By: Bola Meraz on 09-02-2024 Erythrocyte distribution width ratio 15.7 % High 11.6-14.6 [facility] Erythrocyte distribution width standard deviation 47.0 fl High 35.1-43.9 [facility] Erythrocyte distribution wid th ratioOrdered By: Bola Meraz on 09-02-2024 Erythrocyte distribution width (RBC) [Ratio] 15.7 % High 11.6-14.6 [facility] Erythrocyte distribution wid th standard deviationOrdered By: Bola Meraz on 09-02-2024 Erythrocyte distribution width (RBC) [Entitic vol] 47.0 fL High 35.1-43.9 [facility] Erythrocyte distribution width (RBC) [Ratio] 47.0 fl High 35.1-43.9 [facility] Estimated glomerular filtrat ion rate (GFR) AmericanOrdered By: Bola Meraz on 09-02-2024 Estimated GFR (MDRD) Amer 34 mL/min Low >60 [facility] Comment on above: GFR Calc Estimated glomerular filtration rate (GFR) 34 mL/min Low >60 [facility] Estimation of creatinine [place]ol[place] aranceOrdered By: Bola Meraz on 09-02-2024 Estimated Creatinine Clearance Calc 37.67 ml/min [facility] Estimation of creatinine clearance 37.67 ml/min [facility] Glomerular filtration rate ( GFR) estimationOrdered By: Bola Meraz on 09-02-2024 Estimated GFR (MDRD) Non-Af Amer 28 mL/min Low >60 [facility] Comment on above: Non- GFR Calc GFR/1.73 sq M.predicted among non-blacks MDRD (S/P/Bld) [Vol rate/Area] 28 mL/min/{1.73_m2} Low >60 [facility] Glomerular filtration rate (GFR) estimation 28 mL/min Low >60 [facility] Glucose measurementOrdered B y: Bola Meraz on 09-02-2024 Glucose [Mass/Vol] 187 mg/dL [address] Comment on above: Fasting Glucose resu lt greater than or equal to 126 mg/dL suggests DIABETES MELLITUS per A.D.A. criteria. Glucose measurement 187 mg/dL [address] [facility] Glucose measurement at [facility] deOrdered By: Rick Carlin on 09-02-2024 Bedside Glucose (Misc Panel) 168 mg/dL [address] Comment on above: MANAGEMENT OF PATIEN T CARE PER NURSING PROTOCOL Glucose [Mass/Vol] 168 mg/dL High [facility]106 [facility] Glucose measurement at bedside 168 mg/dL [address] [facility] Hematocrit Auto (Bld) [Volum e fraction]Ordered By: Bola Meraz on 09-02-2024 Hematocrit (Bld) [Volume fraction] 30.8 % Low 40-54 [facility] Automated blood hematocrit (percentage) 30.8 % Low 40-54 [facility] Hemoglobin measurementOrdere d By: Bola Meraz on 09-02-2024 Hemoglobin (Bld) [Mass/Vol] 10.7 g/dL Low 13.0-16.5 [facility] Hemoglobin measurement 10.7 g/dL Low 13.0-16.5 [facility] Immature granulocytes/100 WB C Auto (Bld)Ordered By: Bola Meraz on 09-02-2024 Immature granulocytes/100 WBC (Bld) 1.300 % High 0.0-0.9 [facility] Comment on above: IG% - Immature Granu locytes (promyelocytes, myelocytes and metamyelocytes) > 1% indicates that a LEFT SHIFT is Present. Automated immature granulocyte percentage 1.300 % High 0.0-0.9 [facility] Lymphocytes Auto (Unsp spec) [#/Vol]Ordered By: Bola Meraz on 09-02-2024 Lymphocytes (Bld) [#/Vol] 1.04 10*3/uL 0.83-4.51 [facility] Absolute lymphocyte count 1.04 X10^3/uL 0.83-4.51 [facility] Lymphocytes/100 WBC Auto (Un sp spec)Ordered By: Bola Meraz on 09-02-2024 Lymphocytes/100 WBC (Bld) 6.3 % Low 19-41 [facility] Automated lymphocyte count as percentage of total leukocytes 6.3 % Low 19-41 [facility] MCV (RBC) [Entitic vol]Order ed By: Bola Meraz on 09-02-2024 MCV (mean corpuscular volume) determination 83.7 fL 80-94 [facility] MCV (mean corpuscular volume ) determinationOrdered By: Bola Meraz on 09-02-2024 MCV (RBC) [Entitic vol] 83.7 fL 80-94 [facility] Mean corpuscular hemoglobin (MCH) determinationOrdered By: Bola Meraz on 09-02-2024 MCH (RBC) [Entitic mass] 29.1 pg 27.0-32.0 [facility] Mean corpuscular hemoglobin (MCH) determination 29.1 pg 27.0-32.0 [facility] Mean corpuscular hemoglobin concentration (MCHC) determinationOrdered By: Bola Meraz on 09-02-2024 MCHC (RBC) [Mass/Vol] 34.7 g/dL 32-36 [facility] Mean corpuscular hemoglobin concentration (MCHC) determination 34.7 g/dL -36 [facility] Mean platelet volume determi nationOrdered By: Bola Meraz on 09-02-2024 Platelet mean volume (Bld) [Entitic vol] 12.8 fL High 6.2-12.0 [facility] Mean platelet volume determination 12.8 fl High 6.2-12.0 [facility] Monocyte percentageOrdered B y: Boal Meraz on 09-02-2024 Monocytes/100 WBC (Bld) 6.0 % 0-10 [facility] Monocyte percentage 6.0 % 0-10 [facility] Neutrophil percentageOrdered By: Bola Meraz on 09-02-2024 Neutrophils/100 WBC (Bld) 84.7 % High 47-70 [facility] Neutrophil percentage 84.7 % High 47-70 [facility] Nucleated red blood cell per centageOrdered By: Bola Meraz on 09-02-2024 Nucleated RBC/100 WBC (Bld) [Ratio] 0 % 0-5 [facility] Nucleated red blood cell percentage 0 % 0-5 [facility] Platelet countOrdered By: Oliver on 09-02-2024 Platelets (Bld) [#/Vol] 82 10*3/uL Low 150-450 [facility] Platelet count 82 K/mm3 Low 150-450 [facility] Potassium measurementOrdered By: Bola Meraz on 09-02-2024 Potassium [Moles/Vol] 4.0 mmol/L 3.5-5.1 [facility] Potassium measurement 4.0 mmol/L 3.5-5.1 [facility] RBC Auto (Bld) [#/Vol]Ordere d By: Bola Meraz on 09-02-2024 RBC (Bld) [#/Vol] 3.68 10*6/uL Low 4.6-6.2 [facility] Automated blood erythrocyte count 3.68 M/mm3 Low 4.6-6.2 [facility] Serum anion gap measurementO rdered By: Bola Meraz on 09-02-2024 Anion gap [Moles/Vol] 8 mmol/L 5-15 [facility] Serum anion gap measurement 8 5-15 [facility] Serum or plasma calcium roosevelt urement (mass/volume)Ordered By: Bola Meraz on 09-02-2024 Calcium [Mass/Vol] 8.9 mg/dL 8.5-10.1 [facility] Serum or plasma creatinine m easurement (mass/volume)Ordered By: Bola Meraz on 09-02-2024 Creatinine [Mass/Vol] 2.54 mg/dL High 0.70-1.30 [facility] Comment on above: The validity of the calculated GFR & GFRAA in patients over 70 years has not been determined. Clinical correlation is essential. Serum or plasma urea nitroge n measurement (mass/volume)Ordered By: Bola Meraz on 09-02-2024 Urea nitrogen [Mass/Vol] 43 mg/dL High 7-18 [facility] Sodium levelOrdered By: Deanna Meraz on 09-02-2024 Sodium [Moles/Vol] 133 mmol/L Low 136-145 [facility] Sodium level 133 mmol/L Low 136-145 [facility] Urea nitrogen [Mass/Vol]Orde red By: Bola Meraz on 09-02-2024 Serum or plasma urea nitrogen measurement (mass/volume) 43 mg/dL High 7-18 [facility] White blood cell (WBC) count Ordered By: Bola Meraz on 09-02-2024 WBC (Bld) [#/Vol] 16.5 10*3/uL High 4.4-11.0 [facility] White blood cell (WBC) count 16.5 K/mm3 High 4.4-11.0 [facility] ALP [Catalytic activity/Vol] Ordered By: Maria Guadalupe Shore on 08-30-2024 Serum or plasma alkaline phosphatase measurement 143 U/L High 45-117 [facility] ALT [Catalytic activity/Vol] Ordered By: Maria Guadalupe Shore on 08-30-2024 Serum or plasma alanine aminotransferase (ALT) measurement 19 U/L 16-61 [facility] Albumin [Mass/Vol]Ordered By : Maria Guadalupe Shore on 08-30-2024 Serum or plasma albumin measurement (mass/volume) 1.9 g/dL Low 3.2-5.0 [facility] Bilirubin directOrdered By: Maria Guadalupe Shore on 08-30-2024 Bilirubin.direct [Mass/Vol] 0.83 mg/dL High 0.00-0.30 [facility] Bilirubin, totalOrdered By: Maria Guadalupe Shore on 08-30-2024 Bilirubin [Mass/Vol] 1.30 mg/dL High 0.20-1.00 [facility] Comment on above: For patients on eltr ombopag therapy, use of Dimension [place] TBIL is not recommended. Bilirubin, total 1.30 mg/dL High 0.20-1.00 [facility] Bilirubin.direct [Mass/Vol]O rdered By: Maria Guadalupe Shore on 08-30-2024 Bilirubin direct 0.83 mg/dL High 0.00-0.30 [facility] Ferritin measurementOrdered By: Maria Guadalupe Shore on 08-30-2024 Ferritin [Mass/Vol] 85 ng/mL 388 [facility] Ferritin measurement 85 ng/mL 388 [facility] HbA1c (Bld) [Mass fraction]O rdered By: Maria Guadalupe Shore on 08-30-2024 Hemoglobin A1c percentage 7.9 % High 3.8-5.6 [facility] Hemoglobin A1c percentageOrd ered By: Maria Guadalupe Shore on 08-30-2024 HbA1c (Bld) [Mass fraction] 7.9 % High 3.8-5.6 [facility] Comment on above: Normal < 5.7 % Predi abetic 5.7 - 6.4 % Diabetic >or= 6.5 % Please note range changes. Iron (Unsp spec) [Mass/Mass] Ordered By: Maria Guadalupe Shore on 08-30-2024 Iron [Mass/Vol] 62 ug/dL Low 65-175 [facility] Iron measurement (mass/mass) 62 ug/dL Low 65-175 [facility] Iron measurement (mass/mass) Ordered By: Maria Guadalupe Shore on 08-30-2024 Iron (Unsp spec) [Mass/Mass] 62 ug/dL Low 65-175 [facility] Iron saturation [Mass fracti on]Ordered By: Maria Guadalupe Shore on 08-30-2024 Iron Saturation 33.9 % 15.0-55.0 [facility] Serum or plasma iron saturation measurement (mass fraction) 33.9 % 15.0-55.0 [facility] Laboratory - Chemistry and C hemistry - challengeOrdered By: Maria Guadalupe Shore on 08-30-2024 AST [Catalytic activity/Vol] 22 U/L [facility] No Panel InformationOrdered By: Maria Guadalupe Shore on 08-30-2024 22 U/L [facility] Serum globulin measurementOr dered By: Maria Guadalupe Shore on 08-30-2024 Globulin (S) [Mass/Vol] 3.4 g/dL 2.2-4.2 [facility] Serum globulin measurement 3.4 g/dL 2.2-4.2 [facility] Serum or plasma alanine thomas otransferase (ALT) measurementOrdered By: Maria Guadalupe Shore on 08-30-2024 ALT [Catalytic activity/Vol] 19 U/L 16-61 [facility] Serum or plasma albumin roosevelt urement (mass/volume)Ordered By: Maria Guadalupe Shore on 08-30-2024 Albumin [Mass/Vol] 1.9 g/dL Low 3.2-5.0 [facility] Serum or plasma alkaline kendrick sphatase measurementOrdered By: Maria Guadalupe Shore on 08-30-2024 ALP [Catalytic activity/Vol] 143 U/L High 45-117 [facility] Serum or plasma iron saturat ion measurement (mass fraction)Ordered By: Maria Guadalupe Shore on 08-30-2024 Iron saturation [Mass fraction] 33.9 % 15.0-55.0 [facility] TIBCOrdered By: Maria Guadalupe Shore on 08-30-2024 Total Iron Binding Capacity 183 ug/dL Low 250-450 [facility] TIBC 183 ug/dL Low 250-450 [facility] Total proteinOrdered By: Aut davi Shore on 08-30-2024 Protein [Mass/Vol] 5.3 g/dL Low 6.4-8.2 [facility] Total protein 5.3 g/dL Low 6.4-8.2 [facility] Venous blood ammonia measure mentOrdered By: Maria Guadalupe Shore on 08-30-2024 Ammonia (P) [Moles/Vol] 64.0 umol/L High 1132 [facility] Venous blood ammonia measurement 64.0 umol/L High [facility] Activated partial thrombopla stin time (aPTT) in platelet poor plasma by coagulation aOrdered By: Luis Carlos Anderson on 08-29-2024 aPTT Coag (PPP) [Time] 40.9 s High 24.1-36.2 [facility] Albumin to globulin ratioOrd ered By: Luis Carlos Anderson on 08-29-2024 Albumin/Globulin [Mass ratio] 0.4 {ratio} Low 0.9-2.4 [facility] Albumin to globulin ratio 0.4 RATIO Low 0.9-2.4 [facility] Bacteria LM.HPF (Urine sed) [#/Area]Ordered By: Luis Carlos Anderson on 08-29-2024 Urine Bacteria RARE /hpf None Seen [facility] Urine sediment bacteria count by microscopy (number/high power field) RARE /hpf None Seen [facility] Bilirubin Test strip Ql (U)O rdered By: Luis Carlos Anderson on 08-29-2024 Bilirubin Ql (U) 1 mg/dL High Negative [facility] Comment on above: COLOR OF URINE MAY A FFECT DIPSTICK RESULTS. Clarity (U)Ordered By: Juan Alberto Adnerson on 08-29-2024 Urine clarity Clear Clear [facility] Color (U)Ordered By: Luis Carlos Anderson on 08-29-2024 Urine color determination Yellow Yellow [facility] Creatinine (U) [Mass/Vol]Ord ered By: Maria Guadalupe White on 08-29-2024 Urine creatinine measurement (mass/volume) 173.00 mg/dL NO RANGE EST. [facility] Epithelial cells.squamous LM Ql (Urine sed)Ordered By: Luis Carlos Anderson on 08-29-2024 Epithelial cells.squamous LM.HPF (Urine sed) [#/Area] 0 /[HPF] 0-5 [facility] Squamous epithelial cells detection in urine sediment by light microscopy 0 SEEN /hpf 0-5 [facility] Glucose Ql (U)Ordered By: Yaya Anderson on 08-29-2024 Glucose (U) [Mass/Vol] 50 mg/dL High Normal [facility] Urine glucose detection 50 mg/dl High Normal [facility] International normalized rat io (INR) calculationOrdered By: Luis Carlos Anderson on 08-29-2024 INR Coag (Bld) [Relative time] 1.7 {INR} [facility] International normalized ratio (INR) calculation 1.7 [facility] Ketones Test strip Ql (U)Ord ered By: Luis Carlos Anderson on 08-29-2024 Ketones Ql (U) Negative Negative [facility] Leukocyte esterase Test stri p Ql (U)Ordered By: Luis Carlos Anderson on 08-29-2024 Urine leukocyte esterase detection by dipstick 500 /ul High Negative [facility] Lipase measurementOrdered By : Luis Carlos Anderson on 08-29-2024 Lipase [Catalytic activity/Vol] 26 U/L 13-75 [facility] Comment on above: Please note:LIPASE r evised reference range effective 22. New Lipase methodology. Expected to produce lower values than the previous assay method. NEW Reference Range: 13 - 75 U/L Lipase measurement 26 U/L 13-75 [facility] Magnesium measurementOrdered By: Maria Guadalupe Shore on 08-29-2024 Magnesium [Mass/Vol] 2.7 mg/dL High 1.6-2.6 [facility] Magnesium measurement 2.7 mg/dL High 1.6-2.6 [facility] Microscopic analysis of urin e for red blood cells (RBC)Ordered By: Luis Carlos Anderson on 08-29-2024 Urine RBC 5-10 SEEN /hpf 0-5 [facility] Microscopic analysis of urine for red blood cells (RBC) 5-10 SEEN /hpf 0-5 [facility] Mucus LM Ql (Urine sed)Order ed By: Luis Carlos Anderson on 08-29-2024 Mucus Ql (Urine sed) 1+ /hpf [facility] Mucus detection in urine sediment by light microscopy 1+ /hpf [facility] Nitrite Test strip Ql (U)Ord ered By: Luis Carlos Anderson on 08-29-2024 Nitrite Ql (U) Negative Negative [facility] Phosphorus measurementOrdere d By: Maria Guadalupe Shore on 08-29-2024 Phosphorus Level 4.9 mg/dL 2.5-4.9 [facility] Phosphorus measurement 4.9 mg/dL 2.5-4.9 [facility] Protein Test strip Ql (U)Ord ered By: Luis Carlos Anderson on 08-29-2024 Protein Ql (U) 30 mg/dl High Negative [facility] Urine protein assay by test strip, semi-quantitative 30 mg/dl High Negative [facility] Prothrombin timeOrdered By: Luis Carlos Anderson on 08-29-2024 PT Coag (PPP) [Time] 20.0 s High 11.7-14.9 [facility] Prothrombin time 20.0 SECONDS High 11.7-14.9 [facility] Sodium urOrdered By: Maria Guadalupe Shore on 08-29-2024 Sodium (U) [Moles/Vol] 30 mmol/L Not Establ. [facility] Sodium [Moles/Vol] 30 mmol/L [facility] mmol/L Not Establ. [facility] Specific gravity (U) [Rel de nsity]Ordered By: Luis Carlos Anderson on 08-29-2024 Urine specific gravity measurement 1.015 1.002-1.030 [facility] Squamous epithelial cells de tection in urine sediment by light microscopyOrdered By: Luis Carlos Anderson on 08-29-2024 Epithelial cells.squamous LM Ql (Urine sed) 0 SEEN /hpf 0-5 [facility] Urine blood detectionOrdered By: Luis Carlos Anderson on 08-29-2024 Urine Occult Blood 150 /ul High Negative [facility] Urine blood detection 150 /ul High Negative [facility] Urine clarityOrdered By: oJann Anderson on 08-29-2024 Clarity (U) Clear Clear [facility] Urine color determinationOrd ered By: Luis Carlos Anderson on 08-29-2024 Color (U) Yellow Yellow [facility] Urine creatinine measurement (mass/volume)Ordered By: Maria Guadalupe Shore on 08-29-2024 Creatinine (U) [Mass/Vol] 173.00 mg/dL NO RANGE EST. [facility] Urine cultureOrdered By: Joann Anderson on 08-29-2024 Bacteria identified Cx Nom (U) Culture exhibits no growth. [facility] Urine culture Culture exhibits no growth. [facility] Urine glucose detectionOrder ed By: Luis Carlos Anderson on 08-29-2024 Glucose Ql (U) 50 mg/dl High Normal [facility] Urine ketones detection by t est stripOrdered By: Luis Carlos Anderson on 08-29-2024 Urine ketones detection by test strip Negative Negative [facility] Urine leukocyte esterase det ection by dipstickOrdered By: Luis Carlos Anderson on 08-29-2024 Leukocyte esterase Test strip Ql (U) 500 /ul High Negative [facility] Urine pHOrdered By: Luis Carlos hammond on 08-29-2024 pH (U) 6.0 [pH] 5.0 - 8.0 [facility] Urine sediment bacteria coun t by microscopy (number/high power field)Ordered By: Luis Carlos Anderson on 08-29-2024 Bacteria LM.HPF (Urine sed) [#/Area] RARE /hpf None Seen [facility] Urine specific gravity measu rementOrdered By: Luis Carlos Anderson on 08-29-2024 Specific gravity (U) [Rel density] 1.015 1.002-1.030 [facility] Urine total bilirubin detect ion by test stripOrdered By: Luis Carlos Anderson on 08-29-2024 Urine total bilirubin detection by test strip 1 mg/dL High Normal [facility] Urine urobilinogen measureme ntOrdered By: Luis Carlos Anderson on 08-29-2024 Urobilinogen Ql (U) 1 mg/dl High Normal [facility] Urobilinogen Ql (U)Ordered B y: Luis Carlos Anderson on 08-29-2024 Urobilinogen (U) [Mass/Vol] 1 mg/dL High Normal [facility] White blood cell countOrdere d By: Luis Carlos Anderson on 08-29-2024 Urine WBC 10-25 SEEN /hpf 0-5 [facility] White blood cell count 10-25 SEEN /hpf 0-5 [facility] White blood cell count 10-25 SEEN /hpf 0-5 [facility] aPTT Coag (PPP) [Time]Ordere d By: Luis Carlos Anderson on 08-29-2024 aPTT Coag (Bld) [Time] 40.9 s High 24.1-36.2 [facility] Activated partial thromboplastin time (aPTT) in platelet poor plasma by coagulation a 40.9 Seconds High 24.1-36.2 [facility] pH (U)Ordered By: Ashu on 08-29-2024 Urine pH 6.0 5.0 - 8.0 [facility] Vital Signs Date Time Vital Sign Value Performing Clinician Facility 04-10-2025 07:45-0400 Body temperature 98 [degF] Josy RONQUILLO Work Phone: [facility] 04-10-2025 07:45-0400 Diastolic blood pressure 57 mm[Hg] Josy RONQUILLO Work Phone: [facility] 04-10-2025 07:45-0400 Heart rate 80 /min Josy Tannhof [employer] Work Phone: 3(609)[phone] [place] [address] 04-10-2025 07:45-0400 Respiratory rate 16 /min Josy Obrienf [employer] Work Phone: 0(771)[phone] [place] [address] 04-10-2025 07:45-0400 SaO2% (BldA) [Mass fraction] 98 % Josy Obrienf [employer] Work Phone: 4(201)[phone] [place] [address] 04-10-2025 07:45-0400 Systolic blood pressure 109 mm[Hg] Josy Obrienf [employer] Work Phone: 1(128)[phone] [place] [address] 04-10-2025 06:00-0400 Body mass index (BMI) [Ratio] 32 kg/m2 Josy Obrienf [employer] Work Phone: 2(747)[phone] [place] [address] 04-10-2025 06:00-0400 Body weight 98.1 kg Josy Elias [employer] Work Phone: 4(269)[phone] [place] [address] 04-08-2025 13:18-0400 Body height 175.26 cm Josy Obrienf [employer] Work Phone: 8(032)[phone] [place] [address] 04-07-2025 22:05-0400 Body mass index (BMI) [Ratio] 33.3 kg/m2 Josy Obrienf [employer] Work Phone: 4(730)364-687945 [place] [address] 04-07-2025 22:05-0400 Body temperature 98 [degF] Josy Obrienf [employer] Work Phone: 3(627)[phone] [place] [address] 04-07-2025 22:05-0400 Body weight 102.3 kg Josy Elias [employer] Work Phone: 6(384)[phone] [place] [address] 04-07-2025 22:05-0400 Diastolic blood pressure 70 mm[Hg] Josy Obrienf [employer] Work Phone: 0(959)[phone] [place] [address] 04-07-2025 22:05-0400 Heart rate 74 /min Josy Obrienf [employer] Work Phone: 3(962)[phone] [place] [address] 04-07-2025 22:05-0400 Respiratory rate 15 /min Josy Obrienf [employer] Work Phone: 4(267)[phone] [place] [address] 04-07-2025 22:05-0400 SaO2% (BldA) [Mass fraction] 100 % Josy Obrienf [employer] Work Phone: 1(586)[phone] [place] [address] 04-07-2025 22:05-0400 Systolic blood pressure 112 mm[Hg] Josy Obrienf [employer] Work Phone: 3(445)[phone] [place] [address] 04-07-2025 18:05-0400 Body height 175.26 cm Josy Obrienf [employer] Work Phone: 1(283)[phone] [place] [address] 04-03-2025 20:14-0400 Body temperature 97.8 [degF] Josy Obrienf [employer] Work Phone: 9([phone])[phone] [place] [address] 04-03-2025 20:14-0400 Diastolic blood pressure 83 mm[Hg] Josy Obrienf [employer] Work Phone: 3(612)816-989245 [place] [address] 04-03-2025 20:14-0400 Heart rate 109 /min Josy Obrienf [employer] Work Phone: 5(368)071-623045 [place] [address] 04-03-2025 20:14-0400 Respiratory rate 20 /min Josy Obrienf [employer] Work Phone: 2(416)[phone] [place] [address] 04-03-2025 20:14-0400 SaO2% (BldA) [Mass fraction] 95 % Josy Obrienf [employer] Work Phone: 9(265)947-828545 [place] [address] 04-03-2025 20:14-0400 Systolic blood pressure 117 mm[Hg] Josy Baumannhof [employer] Work Phone: 6(470)340-855545 [place] [address] 03-30-2025 13:05-0400 Body temperature 97.3 [degF] Josy Obrienf [employer] Work Phone: 5(364)[phone] [place] [address] 03-30-2025 13:05-0400 Diastolic blood pressure 63 mm[Hg] Josy Baumannhof [employer] Work Phone: 5(410)[phone] [place] [address] 03-30-2025 13:05-0400 Heart rate 75 /min Josy Elias [employer] Work Phone: [facility] 03-30-2025 13:05-0400 Respiratory rate 16 /min Josy Elias [employer] Work Phone: [facility] 03-30-2025 13:05-0400 SaO2% (BldA) [Mass fraction] 100 % Josy Elias [employer] Work Phone: [facility] 03-30-2025 13:05-0400 Systolic blood pressure 102 mm[Hg] Josy Elias [employer] Work Phone: 7(847)[phone] [place] [address] 03-30-2025 10:56-0400 Body mass index (BMI) [Ratio] 29.9 kg/m2 Josy Elias [employer] Work Phone: [facility] 03-30-2025 10:56-0400 Body weight 92 kg Josy Elias [employer] Work Phone: [facility] 03-11-2025 22:11-0400 Body temperature 98.1 [degF] No Primary Care Physician [facility] 03-11-2025 22:11-0400 Diastolic blood pressure 65 mm[Hg] No Primary Care Physician [facility] 03-11-2025 22:11-0400 Heart rate 70 /min No Primary Care Physician [facility] 03-11-2025 22:11-0400 Respiratory rate 16 /min No Primary Care Physician [facility] 03-11-2025 22:11-0400 SaO2% (BldA) [Mass fraction] 100 % No Primary Care Physician [facility] 03-11-2025 22:11-0400 Systolic blood pressure 98 mm[Hg] No Primary Care Physician [facility] 03-11-2025 17:10-0400 Body height 175.26 cm No Primary Care Physician [facility] 03-11-2025 17:10-0400 Body mass index (BMI) [Ratio] 29.8 kg/m2 No Primary Care Physician [facility] 03-11-2025 17:10-0400 Body weight 91.62 kg No Primary Care Physician [facility] 03-10-2025 14:16-0400 Body mass index (BMI) [Ratio] 29 kg/m2 No Primary Care Physician [facility] 03-10-2025 14:16-0400 Body weight 89.35 kg No Primary Care Physician [facility] 03-10-2025 14:16-0400 Diastolic blood pressure 59 mm[Hg] No Primary Care Physician [facility] 03-10-2025 14:16-0400 Heart rate 77 /min No Primary Care Physician [facility] 03-10-2025 14:16-0400 Respiratory rate 17 /min No Primary Care Physician [facility] 03-10-2025 14:16-0400 SaO2% (BldA) [Mass fraction] 99 % No Primary Care Physician [facility] 03-10-2025 14:16-0400 Systolic blood pressure 95 mm[Hg] No Primary Care Physician [facility] 03-04-2025 12:36-0400 Diastolic blood pressure 64 mm[Hg] No Primary Care Physician [facility] 03-04-2025 12:36-0400 Heart rate 68 /min No Primary Care Physician [facility] 03-04-2025 12:36-0400 Respiratory rate 16 /min No Primary Care Physician [facility] 03-04-2025 12:36-0400 Systolic blood pressure 103 mm[Hg] No Primary Care Physician [facility] 02-27-2025 14:46-0400 Body temperature 98.4 [degF] No Primary Care Physician [facility] 02-27-2025 14:46-0400 Diastolic blood pressure 67 mm[Hg] No Primary Care Physician [facility] 02-27-2025 14:46-0400 Heart rate 87 /min No Primary Care Physician [facility] 02-27-2025 14:46-0400 Respiratory rate 16 /min No Primary Care Physician [facility] 02-27-2025 14:46-0400 SaO2% (BldA) [Mass fraction] 96 % No Primary Care Physician [facility] 02-27-2025 14:46-0400 Systolic blood pressure 119 mm[Hg] No Primary Care Physician [facility] 02-26-2025 15:23-0400 Body weight 90.26 kg No Primary Care Physician [facility] 02-25-2025 11:36-0400 Body mass index (BMI) [Ratio] 31.9 kg/m2 No Primary Care Physician [facility] 02-17-2025 17:05-0400 Body temperature 98.2 [degF] No Primary Care Physician [facility] 02-17-2025 17:05-0400 Diastolic blood pressure 71 mm[Hg] No Primary Care Physician [facility] 02-17-2025 17:05-0400 Heart rate 74 /min No Primary Care Physician [facility] 02-17-2025 17:05-0400 Respiratory rate 16 /min No Primary Care Physician [facility] 02-17-2025 17:05-0400 SaO2% (BldA) [Mass fraction] 98 % No Primary Care Physician [facility] 02-17-2025 17:05-0400 Systolic blood pressure 123 mm[Hg] No Primary Care Physician [facility] 02-16-2025 19:56-0400 Body height 175.26 cm No Primary Care Physician [facility] 02-16-2025 19:56-0400 Body mass index (BMI) [Ratio] 31.1 kg/m2 No Primary Care Physician [facility] 02-16-2025 19:56-0400 Body weight 95.6 kg No Primary Care Physician [facility] 02-16-2025 19:34-0400 Body temperature 97.8 [degF] No Primary Care Physician [facility] 02-16-2025 19:34-0400 Diastolic blood pressure 61 mm[Hg] No Primary Care Physician [facility] 02-16-2025 19:34-0400 Heart rate 76 /min No Primary Care Physician [facility] 02-16-2025 19:34-0400 Respiratory rate 18 /min No Primary Care Physician [facility] 02-16-2025 19:34-0400 SaO2% (BldA) [Mass fraction] 96 % No Primary Care Physician [facility] 02-16-2025 19:34-0400 Systolic blood pressure 102 mm[Hg] No Primary Care Physician [facility] 02-16-2025 17:20-0400 Body height 175.26 cm No Primary Care Physician [facility] 02-13-2025 21:17-0400 Body temperature 98.8 [degF] No Primary Care Physician [facility] 02-13-2025 21:17-0400 Diastolic blood pressure 75 mm[Hg] No Primary Care Physician [facility] 02-13-2025 21:17-0400 Heart rate 59 /min No Primary Care Physician [facility] 02-13-2025 21:17-0400 Respiratory rate 16 /min No Primary Care Physician [facility] 02-13-2025 21:17-0400 SaO2% (BldA) [Mass fraction] 100 % No Primary Care Physician [facility] 02-13-2025 21:17-0400 Systolic blood pressure 97 mm[Hg] No Primary Care Physician [facility] 02-13-2025 16:30-0400 Body height 175.26 cm No Primary Care Physician [facility] 02-13-2025 16:30-0400 Body mass index (BMI) [Ratio] 33 kg/m2 No Primary Care Physician [facility] 02-13-2025 16:30-0400 Body weight 101.5 kg No Primary Care Physician [facility] 02-11-2025 12:35-0400 Diastolic blood pressure 55 mm[Hg] No Primary Care Physician [facility] 02-11-2025 12:35-0400 Heart rate 63 /min No Primary Care Physician [facility] 02-11-2025 12:35-0400 Respiratory rate 18 /min No Primary Care Physician [facility] 02-11-2025 12:35-0400 Systolic blood pressure 85 mm[Hg] No Primary Care Physician [facility] 02-11-2025 12:33-0400 Body temperature 97.3 [degF] No Primary Care Physician [facility] 02-08-2025 01:26-0400 Body temperature 97.6 [degF] No Primary Care Physician [facility] 02-08-2025 01:26-0400 Diastolic blood pressure 63 mm[Hg] No Primary Care Physician [facility] 02-08-2025 01:26-0400 Heart rate 62 /min No Primary Care Physician [facility] 02-08-2025 01:26-0400 Respiratory rate 18 /min No Primary Care Physician [facility] 02-08-2025 01:26-0400 SaO2% (BldA) [Mass fraction] 100 % No Primary Care Physician [facility] 02-08-2025 01:26-0400 Systolic blood pressure 97 mm[Hg] No Primary Care Physician [facility] 02-07-2025 22:20-0400 Body mass index (BMI) [Ratio] 34.8 kg/m2 No Primary Care Physician [facility] 02-07-2025 22:20-0400 Body weight 107.1 kg No Primary Care Physician [facility] 02-07-2025 19:24-0400 Body height 175.26 cm No Primary Care Physician [facility] 01-31-2025 18:35-0400 Body temperature 98.1 [degF] No Primary Care Physician [facility] 01-31-2025 18:35-0400 Diastolic blood pressure 86 mm[Hg] No Primary Care Physician [facility] 01-31-2025 18:35-0400 Heart rate 100 /min No Primary Care Physician [facility] 01-31-2025 18:35-0400 Respiratory rate 16 /min No Primary Care Physician [facility] 01-31-2025 18:35-0400 SaO2% (BldA) [Mass fraction] 100 % No Primary Care Physician [facility] 01-31-2025 18:35-0400 Systolic blood pressure 127 mm[Hg] No Primary Care Physician [facility] 01-31-2025 09:49-0400 Body height 182.88 cm No Primary Care Physician [facility] 01-31-2025 09:49-0400 Body weight 110.3 kg No Primary Care Physician [facility] 01-28-2025 09:46-0400 Body mass index (BMI) [Ratio] 33 kg/m2 No Primary Care Physician [facility] 01-28-2025 09:00-0400 Body temperature 98 [degF] No [facility] [facility] 01-[facility]-2025 09:00-0400 Diastolic blood pressure 67 mm[Hg] No Primary Care Physician [facility] 01-28-2025 09:00-0400 Heart rate 106 /min No Primary Care Physician [facility] 01-28-2025 09:00-0400 Respiratory rate 15 /min No Primary Care Physician [facility] 01-28-2025 09:00-0400 SaO2% (BldA) [Mass fraction] 100 % No Primary Care Physician [facility] 01-28-2025 09:00-0400 Systolic blood pressure 125 mm[Hg] No Primary Care Physician [facility] 01-28-2025 02:56-0400 Body height 187.96 cm No Primary Care Physician [facility] 01-28-2025 02:56-0400 Body mass index (BMI) [Ratio] 31.7 kg/m2 No Primary Care Physician [facility] 01-28-2025 02:56-0400 Body weight 112.2 kg No Primary Care Physician [facility] 01-21-2025 13:00-0400 Body temperature 97.7 [degF] No Primary Care Physician [facility] 01-21-2025 13:00-0400 Diastolic blood pressure 60 mm[Hg] No Primary Care Physician [facility] 01-21-2025 13:00-0400 Heart rate 91 /min No Primary Care Physician [facility] 01-21-2025 13:00-0400 Respiratory rate 18 /min No Primary Care Physician [facility] 01-21-2025 13:00-0400 SaO2% (BldA) [Mass fraction] 97 % No Primary Care Physician [facility] 01-21-2025 13:00-0400 Systolic blood pressure 100 mm[Hg] No Primary Care Physician [facility] 01-21-2025 05:13-0400 Body mass index (BMI) [Ratio] 35.8 kg/m2 No Primary Care Physician [facility] 01-21-2025 05:13-0400 Body weight 110.1 kg No Primary Care Physician [facility] 01-17-2025 14:51-0400 Body height 175.26 cm No Primary Care Physician [facility] 01-09-2025 14:01-0400 Heart rate 69 /min No Primary Care Physician [facility] 01-09-2025 14:01-0400 Respiratory rate 16 /min No Primary Care Physician [facility] 01-09-2025 14:01-0400 SaO2% (BldA) [Mass fraction] 100 % No Primary Care Physician [facility] 01-09-2025 14:00-0400 Diastolic blood pressure 59 mm[Hg] No Primary Care Physician [facility] 01-09-2025 14:00-0400 Systolic blood pressure 107 mm[Hg] No Primary Care Physician [facility] 01-09-2025 13:04-0400 Body temperature 98 [degF] No Primary Care Physician [facility] 01-09-2025 10:10-0400 Body height 175.26 cm No Primary Care Physician [facility] 01-09-2025 10:10-0400 Body mass index (BMI) [Ratio] 29.5 kg/m2 No Primary Care Physician [facility] 01-09-2025 10:10-0400 Body weight 90.6 kg No Primary Care Physician [facility] 01-05-2025 16:00-0400 Body temperature 98.1 [degF] No Primary Care Physician [facility] 01-05-2025 16:00-0400 Diastolic blood pressure 60 mm[Hg] No Primary Care Physician [facility] 01-05-2025 16:00-0400 Heart rate 73 /min No Primary Care Physician [facility] 01-05-2025 16:00-0400 Respiratory rate 16 /min No Primary Care Physician [facility] 01-05-2025 16:00-0400 SaO2% (BldA) [Mass fraction] 94 % No Primary Care Physician [facility] 01-05-2025 16:00-0400 Systolic blood pressure 103 mm[Hg] No Primary Care Physician [facility] 01-05-2025 04:44-0400 Body mass index (BMI) [Ratio] 29.9 kg/m2 No Primary Care Physician [facility] 01-05-2025 04:44-0400 Body weight 92.2 kg No Primary Care Physician [facility] 01-02-2025 10:11-0400 Body height 175.26 cm No Primary Care Physician [facility] 01-02-2025 06:34-0400 Body temperature 97.8 [degF] No Primary Care Physician [facility] 01-02-2025 06:34-0400 Diastolic blood pressure 73 mm[Hg] No Primary Care Physician [facility] 01-02-2025 06:34-0400 Heart rate 68 /min No Primary Care Physician [facility] 01-02-2025 06:34-0400 Respiratory rate 20 /min No Primary Care Physician [facility] 01-02-2025 06:34-0400 SaO2% (BldA) [Mass fraction] 100 % No Primary Care Physician [facility] 01-02-2025 06:34-0400 Systolic blood pressure 105 mm[Hg] No Primary Care Physician [facility] 01-02-2025 02:59-0400 Body height 175.26 cm No Primary Care Physician [facility] 01-02-2025 02:59-0400 Body mass index (BMI) [Ratio] 27.5 kg/m2 No Primary Care Physician [facility] 01-02-2025 02:59-0400 Body weight 84.5 kg No Primary Care Physician [facility] 12-30-2024 05:24-0400 Body temperature 97.9 [degF] No Primary Care Physician [facility] 12-30-2024 05:24-0400 Diastolic blood pressure 52 mm[Hg] No Primary Care Physician [facility] 12-30-2024 05:24-0400 Heart rate 71 /min No Primary Care Physician [facility] 12-30-2024 05:24-0400 Respiratory rate 18 /min No Primary Care Physician [facility] 12-30-2024 05:24-0400 SaO2% (BldA) [Mass fraction] 93 % No Primary Care Physician [facility] 12-30-2024 05:24-0400 Systolic blood pressure 93 mm[Hg] No Primary Care Physician [facility] 12-30-2024 01:07-0400 Body height 175.26 cm No Primary Care Physician [facility] 12-30-2024 01:07-0400 Body mass index (BMI) [Ratio] 28.4 kg/m2 No Primary Care Physician [facility] 12-30-2024 01:07-0400 Body weight 87.3 kg No Primary Care Physician [facility] 12-26-2024 14:27-0400 Body temperature 97 [degF] No Primary Care Physician [facility] 12-26-2024 14:27-0400 Diastolic blood pressure 58 mm[Hg] No Primary Care Physician [facility] 12-26-2024 14:27-0400 Heart rate 64 /min No Primary Care Physician [facility] 12-26-2024 14:27-0400 Respiratory rate 16 /min No Primary Care Physician [facility] 12-26-2024 14:27-0400 SaO2% (BldA) [Mass fraction] 97 % No Primary Care Physician [facility] 12-26-2024 14:27-0400 Systolic blood pressure 90 mm[Hg] No Primary Care Physician [facility] 12-26-2024 10:00-0400 Body height 175.26 cm No Primary Care Physician [facility] 12-26-2024 10:00-0400 Body mass index (BMI) [Ratio] 29.7 kg/m2 No Primary Care Physician [facility] 12-26-2024 10:00-0400 Body weight 91.4 kg No Primary Care Physician [facility] 12-02-2024 12:13-0400 Body temperature 98.7 [degF] No Primary Care Physician [facility] 12-02-2024 12:13-0400 Diastolic blood pressure 68 mm[Hg] No Primary Care Physician [facility] 12-02-2024 12:13-0400 Heart rate 86 /min No Primary Care Physician [facility] 12-02-2024 12:13-0400 Respiratory rate 18 /min No Primary Care Physician [facility] 12-02-2024 12:13-0400 SaO2% (BldA) [Mass fraction] 97 % No Primary Care Physician [facility] 12-02-2024 12:13-0400 Systolic blood pressure 117 mm[Hg] No Primary Care Physician [facility] 12-02-2024 02:57-0400 Body mass index (BMI) [Ratio] 33 kg/m2 No Primary Care Physician [facility] 12-02-2024 02:57-0400 Body weight 101.6 kg No Primary Care Physician [facility] 11-29-2024 09:53-0400 Body height 175.26 cm No Primary Care Physician [facility] 11-25-2024 18:31-0400 Body temperature 98.2 [degF] No Primary Care Physician [facility] 11-25-2024 18:31-0400 Diastolic blood pressure 80 mm[Hg] No Primary Care Physician [facility] 11-25-2024 18:31-0400 Heart rate 97 /min No Primary Care Physician [facility] 11-25-2024 18:31-0400 Respiratory rate 18 /min No Primary Care Physician [facility] 11-25-2024 18:31-0400 SaO2% (BldA) [Mass fraction] 98 % No Primary Care Physician [facility] 11-25-2024 18:31-0400 Systolic blood pressure 122 mm[Hg] No Primary Care Physician [facility] 11-24-2024 15:17-0400 Body weight 102.7 kg No Primary Care Physician [facility] 11-21-2024 05:32-0400 Body mass index (BMI) [Ratio] 33.4 kg/m2 No Primary Care Physician [facility] 11-21-2024 05:00-0400 Heart rate 77 /min No Primary Care Physician [facility] 11-21-2024 04:51-0400 Body temperature 98.2 [degF] No Primary Care Physician [facility] 11-21-2024 04:51-0400 Diastolic blood pressure 57 mm[Hg] No Primary Care Physician [facility] 11-21-2024 04:51-0400 Respiratory rate 16 /min No Primary Care Physician [facility] 11-21-2024 04:51-0400 SaO2% (BldA) [Mass fraction] 97 % No Primary Care Physician [facility] 11-21-2024 04:51-0400 Systolic blood pressure 127 mm[Hg] No Primary Care Physician [facility] 11-21-2024 01:32-0400 Body height 175.26 cm No Primary Care Physician [facility] 11-21-2024 01:32-0400 Body mass index (BMI) [Ratio] 34.3 kg/m2 No Primary Care Physician [facility] 11-21-2024 01:32-0400 Body weight 105.4 kg No Primary Care Physician [facility] 11-12-2024 18:03-0400 SaO2% (BldA) [Mass fraction] 99 % KATHIE POWERS [facility] Comment on above: Order Comment: Specimen Type: ARTERIAL B LOOD SPECIMENOrdering Facility: [facility] Address: [address] [place] [id number] Performed By: #### A LLBG ####[facility] LABCLIA [id number] [address] [address] [place] 11-10-2024 23:40-0400 Body temperature 97.8 [degF] No Primary Care Physician [facility] 11-10-2024 23:40-0400 Diastolic blood pressure 70 mm[Hg] No Primary Care Physician [facility] 11-10-2024 23:40-0400 Heart rate 110 /min No Primary Care Physician [facility] 11-10-2024 23:40-0400 Respiratory rate 18 /min No Primary Care Physician [facility] 11-10-2024 23:40-0400 SaO2% (BldA) [Mass fraction] 97 % No Primary Care Physician [facility] 11-10-2024 23:40-0400 Systolic blood pressure 116 mm[Hg] No Primary Care Physician [facility] 11-10-2024 04:54-0400 Body mass index (BMI) [Ratio] 36.7 kg/m2 No Primary Care Physician [facility] 11-10-2024 04:54-0400 Body weight 112.8 kg No Primary Care Physician [facility] 11-09-2024 14:30-0400 Body height 175.26 cm No Primary Care Physician [facility] 10-29-2024 01:23-0400 Body temperature 97.4 [degF] No Primary Care Physician [facility] 10-29-2024 01:23-0400 Diastolic blood pressure 54 mm[Hg] No Primary Care Physician [facility] 10-29-2024 01:23-0400 Heart rate 77 /min No Primary Care Physician [facility] 10-29-2024 01:23-0400 Respiratory rate 14 /min No Primary Care Physician [facility] 10-29-2024 01:23-0400 SaO2% (BldA) [Mass fraction] 97 % No Primary Care Physician [facility] 10-29-2024 01:23-0400 Systolic blood pressure 97 mm[Hg] No Primary Care Physician [facility] 10-28-2024 21:43-0400 Body mass index (BMI) [Ratio] 30.4 kg/m2 No Primary Care Physician [facility] 10-28-2024 21:43-0400 Body weight 93.1 kg No Primary Care Physician [facility] 10-28-2024 17:13-0400 Body height 175.01 cm No Primary Care Physician [facility] 10-04-2024 21:45-0500 Diastolic blood pressure 89 mm[Hg] Maurice wen MD Work Phone: [facility] 10-04-2024 21:45-0500 Heart rate 94 /min Maurice Rincon MD Work Phone: [facility] 10-04-2024 21:45-0500 Respiratory rate 18 /min Maurice Rincon MD Work Phone: [facility] 10-04-2024 21:45-0500 SaO2% (BldA) [Mass fraction] 100 % Maurice Rincon MD Work Phone: [facility] 10-04-2024 21:45-0500 Systolic blood pressure 152 mm[Hg] Maurice parada MD Work Phone: [facility] 10-04-2024 12:03-0500 Body temperature 97.59 [degF] Maurice Rincon MD Work Phone: [facility] 10-04-2024 12:03-0500 Body weight 117.48 kg Maurice Rincon MD Work Phone: [facility] 09-29-2024 10:21-0500 Body temperature 97.3 [degF] No Primary Care Physician [facility] 09-29-2024 10:21-0500 Diastolic blood pressure 74 mm[Hg] No Primary Care Physician [facility] 09-29-2024 10:21-0500 Heart rate 81 /min No Primary Care Physician [facility] 09-29-2024 10:21-0500 Respiratory rate 18 /min No Primary Care Physician [facility] 09-29-2024 10:21-0500 Systolic blood pressure 138 mm[Hg] No Primary Care Physician [facility] 09-15-2024 03:49-0500 Body temperature 97.8 [degF] No Primary Care Physician [facility] 09-15-2024 03:49-0500 Diastolic blood pressure 70 mm[Hg] No Primary Care Physician [facility] 09-15-2024 03:49-0500 Heart rate 80 /min No Primary Care Physician [facility] 09-15-2024 03:49-0500 Respiratory rate 17 /min No Primary Care Physician [facility] 09-15-2024 03:49-0500 SaO2% (BldA) [Mass fraction] 96 % No Primary Care Physician [facility] 09-15-2024 03:49-0500 Systolic blood pressure 142 mm[Hg] No Primary Care Physician [facility] 09-14-2024 04:07-0500 Body mass index (BMI) [Ratio] 36.7 kg/m2 No Primary Care Physician [facility] 09-14-2024 04:07-0500 Body weight 112.8 kg No Primary Care Physician [facility] 09-10-2024 14:03-0500 Body height 175.26 cm No Primary Care Physician [facility] 09-07-2024 01:24-0500 Inhaled oxygen concentration 21 % No Primary Care Physician [facility] 09-06-2024 05:00-0500 Inhaled oxygen flow rate 8 L/min No Primary Care Physician [facility] 09-02-2024 15:36-0500 Body weight 104 kg No Primary Care Physician [facility] 09-02-2024 14:54-0500 Body temperature 98.1 [degF] No Primary Care Physician [facility] 09-02-2024 14:54-0500 Diastolic blood pressure 62 mm[Hg] No Primary Care Physician [facility] 09-02-2024 14:54-0500 Heart rate 60 /min No Primary Care Physician [facility] 09-02-2024 14:54-0500 Respiratory rate 18 /min No Primary Care Physician [facility] 09-02-2024 14:54-0500 SaO2% (BldA) [Mass fraction] 99 % No Primary Care Physician [facility] 09-02-2024 14:54-0500 Systolic blood pressure 118 mm[Hg] No Primary Care Physician [facility] 09-02-2024 03:57-0500 Body mass index (BMI) [Ratio] 33.8 kg/m2 No Primary Care Physician [facility] 08-21-2024 16:33-0500 Body temperature 98.5 [degF] No Primary Care Physician [facility] 08-21-2024 16:33-0500 Diastolic blood pressure 78 mm[Hg] No Primary Care Physician [facility] 08-21-2024 16:33-0500 Heart rate 61 /min No Primary Care Physician [facility] 08-21-2024 16:33-0500 Respiratory rate 12 /min No Primary Care Physician [facility] 08-21-2024 16:33-0500 SaO2% (BldA) [Mass fraction] 97 % No Primary Care Physician [facility] 08-21-2024 16:33-0500 Systolic blood pressure 114 mm[Hg] No Primary Care Physician [facility] 08-21-2024 13:52-0500 Body mass index (BMI) [Ratio] 33 kg/m2 No Primary Care Physician [facility] 08-21-2024 13:52-0500 Body weight 101.5 kg No Primary Care Physician [facility] Encounters Encounter Date Encounter Type Care Provider Facility Start: 04-18-2025 ambulatory [facility] Facility :[facility] Start: 04-18-2025 End: 04-20-2025 Evaluation and management of inpatient [facility] Facility:[facility] Start: 04-10-2025 Dr. Anurag Irene MD -[facility] Work Phone: Start: 04-09-2025 Dr. Anurag Irene MD [facility] Work Phone: Start: 04-08-2025 Dr. Maria Guadalupe Shore MD - [facility] Work Phone: Start: 04-07-2025 Evaluation and manag ement of inpatient [facility] [employer] Work Phone: -Medical Surgical 3 Start: 04-07-2025 Dr. Maria Guadalupe Shore MD - [facility] 3 Work Phone: Start: 04-07-2025 End: 04-10-2025 Evaluation and management of inpatient [facility] [employer] Work Phone: -Medical Surgical 3 Start: 04-07-2025 ambulatory [facility] Facility :[facility] Start: 04-07-2025 End: 04-10-2025 Dr. Maria Guadalupe Shore MD -[facility] Work Phone: Start: 04-03-2025 End: 04-03-2025 Josy [facility]erg[facility] [employer] Work Phone: -Emergency Department Work Phone: Start: 04-03-2025 End: 04-03-2025 Emergency department patient visit [facility] Facility:[facility] Start: 03-30-2025 End: 03-30-2025 Dr. Roby Balderas MD -[facility] Start: 03-30-2025 End: 03-30-2025 ambulatory [facility] Facility:[facility] Start: 03-25-20[facility] Start: 03-16-2025 ambulatory [facility] ty:[facility] Start: 03-11-2025 End: 03-11-2025 No Primary Care Physician -Emergency Department Work Phone: Start: 03-11-2025 End: 03-11-2025 Emergency department patient visit No Primary Care Physician -Emergency Department Start: 03-10-2025 End: 03-10-2025 Dr. Roby Balderas MD -[facility] Work Phone: Start: 03-10-2025 End: 03-10-2025 ambulatory Roby Balderas Facility:[facility] Start: 03-04-2025 End: 03-04-2025 No Primary Care Physician -Ultrasound [facility] Work Phone: Start: 03-04-2025 End: 03-04-2025 ambulatory [facility] Facility:[facility] Start: 02-27-2025 Dr. Rick gutierrez DO -[facility] Work Phone: Start: 02-26-2025 Dr. Rick gutierrez DO -[facility] Work Phone: Start: 02-25-2025 Niranjan Li DO -[facility] Start: 02-25-2025 End: 02-27-2025 ambulatory Kathie Powers Facility:[facility] Start: 02-25-2025 End: 02-27-2025 Dr. Rick Carlin DO -Progressive Care Unit Work Phone: Start: 02-24-2025 End: 02-25-2025 Jasonashley Glover -[facility] Work Phone: Start: 02-24-2025 End: 02-25-2025 ambulatory Josy Elias Facility:[facility] Start: 02-17-2025 Niranjan Jen DO -[facility] Start: 02-17-2025 Dr. Anurag Irene MD -[facility] Work Phone: Start: 02-16-2025 End: 02-17-2025 ambulatory Jae Ash Facility:[facility] Start: 02-16-2025 Evaluation and manag ement of inpatient No Primary Care Physician -Medical Surgical 3 Start: 02-16-2025 End: 02-17-2025 Dr. Jae Ash DO -Medical Surgical 3 Work Phone: Start: 02-16-2025 End: 02-16-2025 Dr. Jerald Sherwood MD -[facility] Start: 02-16-2025 End: 02-16-2025 ambulatory Jerald Sherwood Facility:[facility] Start: 02-14-2025 ambulatory NONE PHYSICIAN Facility :[facility] Start: 02-13-2025 End: 02-13-2025 No Primary Care Physician -Emergency Department Work Phone: Start: 02-13-2025 End: 02-13-2025 Emergency department patient visit No Primary Care Physician -Emergency Department Start: 02-11-2025 End: 02-11-2025 ambulatory No Primary Care Physician -Ultrasound [facility] Start: 02-11-2025 End: 02-11-2025 Mina Blood DO -Ultrasound [facility] Work Phone: Start: 02-11-2025 End: 02-11-2025 ambulatory Mina Blood Facility:[facility] Start: 02-07-2025 End: 02-08-2025 No Primary Care Physician -Emergency Department Work Phone: Start: 02-07-2025 End: 02-08-2025 Emergency department patient visit No Primary Care Physician -Emergency Department Start: 01-31-2025 Dr. Yaritza Leo [facility] Work Phone: Start: 01-30-2025 Dr. Yaritza Leo [facility] Work Phone: Start: 01-29-2025 Dr. Yaritza Leo [facility] Work Phone: Start: 01-28-2025 ambulatory [facility] Facility[facility] Start: 01-28-2025 End: 01-31-2025 Evaluation and management of inpatient No Primary Care Physician [facility] Work Phone: Start: 01-28-2025 End: 01-31-2025 Dr. Boone Izquierdo [facility] Work Phone: Start: 01-21-2025 Dr. Anurag Irene MD [facility] Work Phone: Start: 01-20-2025 Dr. Anurag Irene MD [facility] Work Phone: Start: 01-19-2025 Dr. Anurag Irene MD [facility] Work Phone: Start: 01-18-2025 Dr. Anurag Irene MD [facility] Work Phone: Start: 01-17-2025 Dr. Anurag Irene MD [facility] Work Phone: Start: 01-16-2025 Dr. Cielo Tovar MD [facility] Work Phone: Start: 01-15-2025 Dr. Cielo Tovar MD [facility] Work Phone: Start: 01-14-2025 Dr. Cielo Tovar MD [facility] Work Phone: Start: 01-13-2025 Dr. Cielo Tovar MD - [facility] Work Phone: Start: 01-12-2025 Dr. Cielo Tovar MD - [facility] Work Phone: Start: 01-11-2025 Dr. Jefferson Malave MD - [facility] Start: 01-11-2025 Dr. Cielo Tovar MD - [facility] Work Phone: Start: 01-11-2025 Dr. Bola Meraz DO -[facility] -PM Start: 01-10-2025 Dr. Cielo Tovar MD - [facility] Work Phone: Start: 01-09-2025 ambulatory Cielo Tovar Facility :[facility] Start: 01-09-2025 End: 01-21-2025 Evaluation and management of inpatient No Primary Care Physician [facility] Work Phone: Start: 01-09-2025 End: 01-21-2025 Dr. Yaritza Leo DO -Intensive Care Unit Work Phone: Start: 01-05-2025 Dr. Hill Acuña MD [facility] Work Phone: Start: 01-04-2025 Dr. Hill Acuña MD [facility] Work Phone: Start: 01-03-2025 Dr. Hill Acuña MD [facility] Work Phone: Start: 01-02-2025 ambulatory Buster Fuchs [facility] ility:[facility] Start: 01-02-2025 End: 01-05-2025 Evaluation and management of inpatient No Primary Care Physician [facility] Work Phone: Start: 01-02-2025 End: 01-05-2025 Dr. Buster Fuchs MD -Progressive Care Unit Work Phone: Start: 12-30-2024 End: 12-30-2024 No Primary Care Physician -Emergency Department Work Phone: Start: 12-30-2024 End: 12-30-2024 Emergency department patient visit No Primary Care Physician [facility] Work Phone: Start: 12-26-2024 End: 12-26-2024 No Primary Care Physician -Emergency Department Work Phone: Start: 12-26-2024 End: 12-26-2024 Emergency department patient visit No Primary Care Physician [facility] Work Phone: Start: 12-15-2024 End: 12-15-2024 ambulatory No Primary Care Physician [facility] Work Phone: Start: 12-15-2024 End: 12-15-2024 Josy Elias [employer] -Ultrasound [facility] Work Phone: Start: 12-15-2024 End: 12-15-2024 ambulatory Josy Elias Facility:[facility] Start: 12-07-2024 End: 12-10-2024 ambulatory Eva Pichardo MD Work Phone: Urology Start: 12-07-2024 End: 12-07-2024 Josy Elias NP-C -Laboratory, [facility] Start: 12-07-2024 End: 12-07-2024 ambulatory [facility] Facility:[facility] Start: 12-02-2024 Dr. Hill Acuña MD [facility] Work Phone: Start: 12-01-2024 Dr. Hill Acuña MD [facility] Work Phone: Start: 11-30-2024 Dr. Hill Acuña MD [facility] Work Phone: Start: 11-29-2024 Dr. Hill Acuña MD - [facility] Work Phone: Start: 11-28-2024 ambulatory Kathie Powers Facility[facility] Start: 11-28-2024 End: 12-02-2024 Evaluation and management of inpatient Kathie Powers Facility:[facility] Start: 11-28-2024 End: 12-02-2024 Dr. Hill Acuña MD -Progressive Care Unit Work Phone: Start: 11-25-2024 Dr. Anurag Irene MD -[facility] Inpatient Physicians Work Phone: Start: 11-24-2024 Dr. Anurag Irene MD -[facility] Work Phone: Start: 11-23-2024 ambulatory Jae Ash Fac ility:[facility] Start: 11-23-2024 End: 11-25-2024 Evaluation and management of inpatient Jae Ash Facility:[facility] Start: 11-23-2024 End: 11-25-2024 Dr. Anurag Irene MD -Medical Surgical 3 Work Phone: Start: 11-22-2024 Dr. Anurag Irene MD -[facility] In[facility] Work Phone: Start: 11-21-2024 ambulatory Jae Nilsa Fac ility:[facility] Start: 11-21-2024 observation encounter No Prima Care Physician [facility] Work Phone: Start: 11-21-2024 Dr. Jae Ash DO -Medical Surgical 3 Work Phone: Start: 11-18-2024 Patient encounter status Jeremi Abreu RN Work Phone: [facility] Work Phone: Start: 11-18-2024 End: 11-18-2024 Telephone encounter Jeremi Abreu RN Work Phone: Transplant Center Comment on above: Outcome Liver Transp lant Selection Committee Start: 11-15-2024 End: 11-15-2024 Evaluation and management of inpatient Izabela Castellanosn DDS Work Phone: Dentistry Comment on above: Liver transplant can didate (Primary Dx); Pre-operative clearance Start: 11-15-2024 End: 11-15-2024 Preoperative state Izabela Estuardo Candice DDS Work Phone: [facility] Start: 11-15-2024 End: 11-15-2024 Social Work Marah Arauz ENGINEERING ADMINISTRATOR Work Phone: Transplant Center Start: 11-12-2024 End: 11-12-2024 Patient encounter [facility] Start: 11-12-2024 End: 11-12-2024 Orders Only Liver Txp Coordinator Work Phone: Transplant Center Comment on above: 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 Kathie Powers MD [...] Physicians Work Phone: Start: 11-02-2024 Dr. Hill cAuña MD -[facility] Work Phone: Start: 11-01-2024 Dr. Hill Acuña MD -[facility] Work Phone: Start: 11-01-2024 Niranjan Li DO -[facility] Start: 10-31-2024 Dr. Buster Fuchs MD -[place] [facility] Work Phone: Start: 10-30-2024 Niranjan Li DO -[facility] Start: 10-30-2024 Dr. Buster Fuchs MD -[place] [facility] Work Phone: Start: 10-29-2024 Dr. Bola Meraz DO -[facility] -[facility] Start: 10-29-2024 ambulatory Kathie Grenville Facility:[facility] Start: 10-29-2024 End: 11-11-2024 Evaluation and management of inpatient Dr. Hill Caro DO -Intensive Care Unit Work Phone: Start: 10-29-2024 End: 11-11-2024 Dr. Kathie Powers MD -Progressive Care Unit Work Phone: Start: 10-19-2024 ambulatory [facility] Facility:[facility] Start: 10-04-2024 End: 10-04-2024 Emergency department patient visit MAURICE RINCON [facility] Emergency Medicine Comment on above: Other ascites (Prima ry Dx); Abdominal pain, generalized; Other cirrhosis of liver; Peripheral edema; Coagulopathy (Multi); Hyperbilirubinemia; Cirrhosis of liver with ascites, unspecified hepatic cirrhosis type (Multi) Start: 09-29-2024 ambulatory [facility] Facility:[facility] Start: 09-29-2024 Non-patient / Non-visit Jasmine nunez BEE PRODUCER-C -[facility] Start: 09-29-2024 Jasmine Morocho NP-C - [facility] Start: 09-29-2024 End: 09-29-2024 ambulatory No Primary Care Physician [facility] Work Phone: Start: 09-29-2024 End: 09-29-2024 Patient encounter procedure No Primary Care Physician -Ultrasound, [facility] Work Phone: Start: 09-29-2024 End: 09-29-2024 No Primary Care Physician -Ultrasound, [facility] Work Phone: Start: 09-29-2024 End: 09-29-2024 [facility] Facility:[facility] Start: 09-14-2024 Non-patient / Non-visit Dr. Boone James [facility] Inpatient Physicians Work Phone: Start: 09-14-2024 Dr. Boone Izquierdo [facility] Inpatient Physicians Work Phone: Start: 09-13-2024 Non-patient / Non-visit Dr. Boone James [facility] Inpatient Physicians Work Phone: Start: 09-13-2024 Dr. Boone Izquierdo [facility] Inpatient Physicians Work Phone: Start: 09-12-2024 [facility] / [facility] Start: 09-12-2024 [facility] Work [facility]: Start: 09-11-2024 Non-patient / [facility] Work Phone: Start: 09-11-2024 [facility] Work Phone: Start: 09-10-2024 Non-patient / Non-visit Dr. Slaughter [facility] Inpatient Physicians Work Phone: Start: 09-10-2024 Dr. Jae Ash [facility] Inpatient Physicians Work Phone: Start: 09-09-2024 Non-patient / Non-visit Dr. Noonan [facility] Inpatient Physicians Work Phone: Start: 09-09-2024 Dr. Jae Ash [facility] Inpatient Physicians Work Phone: Start: 09-08-2024 Non-patient / Non-visit Dr. Anurag Irene MD -[place] [facility] Work Phone: Start: 09-08-2024 Dr. Anurag Irene MD [facility] Inpatient Physicians Work Phone: Start: 09-07-2024 Non-patient / Non-visit Dr. Anurag Irene MD [facility] Inpatient Physicians Work Phone: Start: 09-07-2024 Dr. Anurag Irene MD -[facility] Inpatient Physicians Work Phone: Start: 09-06-2024 Non-patient / Non-visit Dr. Anurag Irene MD [facility] Inpatient Physicians Work Phone: Start: 09-06-2024 Dr. Anurag Irene MD -[facility] In[facility] Work Phone: Start: 09-05-2024 ambulatory Hill de Kyle Facili ty:[facility] Start: 09-05-2024 End: 09-15-2024 Evaluation and management of inpatient Dr. Boone Izquierdo -Progressive Care Unit Work Phone: Start: 09-05-2024 End: 09-15-2024 Dr. Boone Izquierdo [facility] Work Phone: Start: 09-02-2024 Non-patient / Non-visit Dr. Lissette Carlin [facility] Inpatient Physicians Work Phone: Start: 09-02-2024 Dr. Rick gutierrez [facility] Inpatient Physicians Work Phone: Start: 09-01-2024 Non-patient / Non-visit Niranjan Frie nd DO -[facility] Start: 09-01-2024 Niranjan Friend DO -[facility] Start: 09-01-2024 Non-patient / Non-visit Dr. Lissette Carlin [facility] In[facility] Work Phone: Start: 09-01-2024 Dr. Rick gutierrez [facility] In[facility] Work Phone: Start: 08-31-2024 Non-patient / Non-visit Niranjan Frie nd DO -[facility] Start: 08-31-2024 Niranjan Friend DO -[facility] Start: 08-31-2024 Non-patient / Non-visit Dr. Lissette Carlin DO -[place] [facility] Work Phone: Start: 08-31-2024 Dr. Rick gutierrez [facility] In[facility] Work Phone: Start: 08-31-2024 Non-patient / Non-visit Dr. Bola Patiño own DO -[facility] Start: 08-31-2024 Dr. Bola Meraz DO -[facility] Start: 08-30-2024 Non-patient / Non-visit Niranjan Coles nd DO -[facility] Start: 08-30-2024 Niranjan Friend DO -[facility] Start: 08-30-2024 Non-patient / Non-visit Dr. Lissette Carlin [facility] In[facility] Work Phone: Start: 08-30-2024 Dr. Rick gutierrez [facility] In[facility] Work Phone: Start: 08-30-2024 Non-patient / Non-visit Dr. Bola Patiño own DO -[facility] Start: 08-30-2024 Dr. Bola Meraz DO -[facility] Start: 08-29-2024 ambulatory [facility] Facility :[facility] Start: 08-29-2024 End: 09-02-2024 Evaluation and management [...] rscp w/mnl difrntl wbc count Josy Elias BEE PRODUCER-[place] Work Phone: Start: 04-10-2025 Estimated creatinine clearance Josy Elias BEE PRODUCER-C Work Phone: Start: 04-10-2025 Mean corpuscular hem oglobin concentration determination Josy Elias BEE PRODUCER-C Work Phone: Start: 04-10-2025 Nucleated red blood cell count procedure Josy Elias BEE PRODUCER-C Work Phone: Start: 04-10-2025 Platelet mean volume determination Josy Elias BEE PRODUCER-C Work Phone: Start: 04-09-2025 Urine microscopy: red cells Josy Obrienf BEE PRODUCER-C Work Phone: Start: 04-09-2025 Urnls dip stick/tabl et reagent auto microscopy Josy Obrienf BEE PRODUCER-C Work Phone: Start: 04-07-2025 Urine microscopy: red cells Josy Obrienf BEE PRODUCER-C Work Phone: Start: 04-07-2025 Urnls dip stick/tabl et reagent auto microscopy Josy Elias BEE PRODUCER-C Work Phone: Start: 04-07-2025 Blood count smear mc rscp w/mnl difrntl wbc count Josy Obrienf BEE PRODUCER-C Work Phone: Start: 04-07-2025 Mean corpuscular hem oglobin concentration determination Josy Elias BEE PRODUCER-C Work Phone: Start: 04-07-2025 Nucleated red blood cell count procedure Josy Obrienf BEE PRODUCER-C Work Phone: Start: 04-07-2025 Platelet mean volume determination Josy Elias BEE PRODUCER-C Work Phone: Start: 04-07-2025 Serum inorganic phos phate measurement Josy Obrienf BEE PRODUCER-C Work Phone: Start: 04-07-2025 Triacylglycerol lipa se measurement Josy Obrienf BEE PRODUCER-C Work Phone: Start: 04-07-2025 Nucleic acid assay Chinedu katia Elias BEE PRODUCER-C Work Phone: Start: 04-07-2025 Sars-cov-2 Josy Espitia nhof BEE PRODUCER-C Work Phone: Start: 04-07-2025 Urine culture Josy Langston nnhof BEE PRODUCER-C Work Phone: Start: 03-11-2025 Blood count smear [...] Start: 11-21-2024 Plain chest X-ray No Pr [facility] Care Physician Start: 11-18-2024 Antibody screen KATHIE LUCAS Comment on above: Order Comment: Speci men Type: BLOOD SPECIMENOrdering Facility: [facility] Address: [address] [place] [address] Performed By: #### T SCR ####CC MAIN BLOOD BANKCLIA [id number] [facility] [id number] [place] [address] [place] Start: 11-16-2024 End: 11-16-2024 Colonoscopy Jeremi Abreu RN Work Phone: Start: 11-15-2024 Antibody screen KATHIE LUCAS Comment on above: Order Comment: Speci men Type: BLOOD SPECIMENOrdering Facility: [facility] Address: [address] [place] [address] Performed By: #### T SCR ####CC MAIN BLOOD BANKCLIA [id number] [address] Start: 11-13-2024 Lipid 1996 panel - S sandie or Plasma Marah Arauz ENGINEERING ADMINISTRATOR Work Phone: Start: 11-12-2024 Antibody screen KATHIE LUCAS Comment on above: Order Comment: Speci men Type: BLOOD SPECIMENOrdering Facility: [facility] Address: [address] [place] [address] Performed By: #### T SCR ####CC MAIN BLOOD BANKCLIA [id number] [address] Start: 11-10-2024 Urine microscopy: red cells [...] Start: 08-29-2024 Plain chest X-ray No Pr [facility] Care Physician Start: 08-29-2024 Triacylglycerol lipa se [...] DTaP,Tdap,Td Vaccine (2 - Td or Tdap) [facility] Start: 11-17-2029 Prostate specific antigen measurement Prostate Cancer Screening Discussion [facility] Start: 11-13-2029 Lipid panel Lipid Screening [facility] Start: 11-19-2027 Diabetes Screening Diabetes Screening [facility] Start: 11-17-2027 Diabetes Screening Diabetes Screening [facility] Start: 11-15-2027 Diabetes Screening Diabetes Screening [facility] Start: 11-13-2027 Diabetes Screening Diabetes Screening [facility] Start: 11-18-2025 Creatinine measurement Serum Creatinine [facility] Start: 11-16-2025 Creatinine measurement Serum Creatinine [facility] Start: 11-16-2025 Screening for malignant neoplasm of colon [facility] Start: 11-15-2025 Creatinine measurement Serum Creatinine [facility] Start: 11-12-2025 Creatinine measurement Serum Creatinine [facility] Start: 05-16-2025 Hepatitis A Vaccine (2 of 2 - Risk 2-dose series) Hepatitis A Vaccine (2 of 2 - Risk 2-dose series) [facility] Start: 04-10-2025 Patient discharge [facility] Start: 04-09-2025 Referral to service [facility] Start: 04-09-2025 [facility] Start: 04-09-2025 [facility] Start: 04-08-2025 Care planning and problem solving actions [facility] Start: 04-08-2025 Respiratory secretion precautions [facility] Start: 04-08-2025 Aspiration precautions [facility] Start: 04-08-2025 Assessment of risk of venous thromboembolism [facility] Start: 04-08-2025 Care regimes management [facility] Start: 04-08-2025 Fall prevention [facility] Start: 04-08-2025 Inhalation therapy procedure [facility] Start: 04-08-2025 Insertion of catheter into peripheral vein [facility] Start: 04-08-2025 Introduction of urinary catheter [facility] Start: 04-08-2025 Measuring intake and output [facility] Start: 04-08-2025 Notification of physician [facility] Start: 04-08-2025 Oxygen therapy [facility] Start: 04-08-2025 Providing care according to standard [facility] Start: 04-08-2025 Provision of activity privileges [facility] Start: 04-08-2025 Referral to occupational therapist [facility] Start: 04-08-2025 Referral to service [facility] Start: 04-07-2025 Following clinical pathway protocol [facility] Start: 04-07-2025 End: 04-08-2025 [facility] Start: 04-07-2025 Sars-cov-2 [facility] Start: 04-07-2025 Verification routine [facility] Start: 04-07-2025 Hospital admission, emergency, from emergency room, medical nature [facility] Start: 04-07-2025 Admission procedure [facility] Start: 04-07-2025 [facility] Start: 04-03-2025 [facility] Start: 03-30-2025 Anesthesia closed chest w/bronchoscopy nos [facility] Start: 03-30-2025 Insertion indwelling tunneled pleural catheter [facility] Start: 03-30-2025 Patient discharge [facility] Start: 03-11-2025 [facility] Start: 03-04-2025 Following clinical pathway protocol [facility] Start: 03-02-2025 End: 03-02-2025 Patient encounter procedure 03/02/2025 2:20 PM EDT Office Visit Family Medicine [address] [address] Alex Alexandre MD [address] [place] [address] Hospital discharge, diabetes mx, need for repeat vaccines, and consideration of CT chest [facility] [place] Comment on above: Hospital discharge, diabetes mx, need fo r repeat vaccines, and consideration of CT chest Start: 02-27-2025 Patient discharge [facility] Start: 02-26-2025 [facility] Start: 02-26-2025 Referral to occupational therapist [facility] Start: 02-26-2025 Referral to service [facility] Start: 02-25-2025 Following clinical pathway protocol [facility] Start: 02-25-2025 Assessment of risk of venous thromboembolism [facility] Start: 02-25-2025 Care regimes management [facility] Start: 02-25-2025 Inhalation therapy procedure [facility] Start: 02-25-2025 Insertion of catheter into peripheral vein [facility] Start: 02-25-2025 Measuring intake and output [facility] Start: 02-25-2025 Notification of physician [facility] Start: 02-25-2025 Providing care according to standard [facility] Start: 02-25-2025 Provision of activity privileges [facility] Start: 02-25-2025 Referral to gastroenterology service [facility] Start: 02-25-2025 Referral to service [facility] Start: 02-25-2025 End: 02-25-2025 [facility] Start: 02-25-2025 Admission procedure [facility] Start: 02-25-2025 Patient referral to dietitian [facility] Start: 02-17-2025 [facility] Start: 02-17-2025 Referral to service [facility] Start: 02-17-2025 Admission procedure [facility] Start: 02-17-2025 Referral to occupational therapist [facility] Start: 02-17-2025 Referral to service [facility] Start: 02-17-2025 Patient discharge [facility] Start: 02-16-2025 Application of intermittent pneumatic compression device [facility] Start: 02-16-2025 Ambulation without limitation [facility] Start: 02-16-2025 Assessment of risk of venous thromboembolism [facility] Start: 02-16-2025 Incentive spirometry [facility] Start: 02-16-2025 Insertion of catheter into peripheral vein [facility] Start: 02-16-2025 Measuring intake and output [facility] Start: 02-16-2025 Oxygen therapy [facility] Start: 02-16-2025 Providing care according to standard [facility] Start: 02-16-2025 Referral to gastroenterology service [facility] Start: 02-16-2025 Referral to service [facility] Start: 02-16-2025 [facility] Start: 02-16-2025 Care of central venous catheter [facility] Start: 02-16-2025 Following clinical pathway protocol [facility] Start: 02-16-2025 Prothrombin time [facility] Start: 02-16-2025 Hospital admission, emergency, from emergency room, medical nature [facility] Start: 02-16-2025 Verification routine [facility] Start: 02-16-2025 Admission procedure [facility] Start: 02-16-2025 Acute hepatitis panel [facility] Start: 02-16-2025 Assay of ammonia [facility] Start: 02-16-2025 Collection venous blood venipuncture [facility] Start: 02-16-2025 Patient referral to dietitian [facility] Start: 02-13-2025 [facility] Start: 02-13-2025 Assay of lipase [facility] Start: 02-13-2025 Blood count complete auto&auto difrntl wbc [facility] Start: 02-13-2025 Comprehensive metabolic panel [facility] Start: 02-13-2025 Ct abdomen & pelvis w/contrast material [facility] Start: 02-13-2025 Emergency dept visit high severity&threat funcj [facility] Start: 02-13-2025 Ther proph/dx njx iv push single/1st sbst/drug [facility] Start: 02-13-2025 Therapeutic injection iv push each new drug [facility] Start: 02-08-2025 Centesis [facility] Start: 02-08-2025 End: 02-08-2025 [facility] Start: 02-02-2025 End: 02-02-2025 Patient encounter procedure 02/02/2025 9:20 AM EDT Office Visit [facility] [place] [address] [place] [address] Ray Vega MD [address] [place] [address] est care [facility] Comment on above: est care Start: 01-31-2025 Patient discharge [facility] Start: 01-31-2025 Referral to service [facility] Start: 01-31-2025 [facility] Start: 01-29-2025 [facility] Start: 01-28-2025 Blood culture [facility] Start: 01-28-2025 Application of intermittent pneumatic compression device [facility] Start: 01-28-2025 Following clinical pathway protocol [facility] Start: 01-28-2025 Assessment of risk of venous thromboembolism [facility] Start: 01-28-2025 Care regimes management [facility] Start: 01-28-2025 Documentation procedure [facility] Start: 01-28-2025 Insertion of catheter into peripheral vein [facility] Start: 01-28-2025 Notification of physician [facility] Start: 01-28-2025 Providing care according to standard [facility] Start: 01-28-2025 Provision of activity privileges [facility] Start: 01-28-2025 Referral to occupational therapist [facility] Start: 01-28-2025 Referral to service [facility] Start: 01-28-2025 Speech therapy assessment [facility] Start: 01-28-2025 End: 01-28-2025 [facility] Start: 01-28-2025 Admission procedure [facility] Start: 01-28-2025 End: 01-28-2025 [facility] Start: 01-28-2025 End: 01-28-2025 [facility] Start: 01-28-2025 Patient referral to dietitian [facility] Start: 01-21-2025 Patient discharge [facility] Start: 01-18-2025 End: 01-18-2025 Microbial culture, body fluid [facility] Start: 01-18-2025 Care planning and problem solving actions [facility] Start: 01-18-2025 Anaerobic microbial culture [facility] Start: 01-17-2025 [facility] Start: 01-16-2025 [facility] Start: 01-15-2025 [facility] Start: 01-14-2025 Consultation for pain [facility] Start: 01-14-2025 [facility] Start: 01-13-2025 Administration of blood product [facility] Start: 01-13-2025 [facility] Start: 01-12-2025 [facility] Start: 01-11-2025 Application of intermittent pneumatic compression device [facility] Start: 01-11-2025 Referral to general surgeon [facility] Start: 01-11-2025 [facility] Start: 01-10-2025 Care planning and problem solving actions [facility] Start: 01-09-2025 Assessment of risk of venous thromboembolism [facility] Start: 01-09-2025 Cardiac monitoring [facility] Start: 01-09-2025 Catheterization of vein [facility] Start: 01-09-2025 Inhalation therapy procedure [facility] Start: 01-09-2025 Insertion of catheter into peripheral vein [facility] Start: 01-09-2025 Measuring intake and output [facility] Start: 01-09-2025 Notification of physician [facility] Start: 01-09-2025 Patient referral to dietitian [facility] Start: 01-09-2025 Providing care according to standard [facility] Start: 01-09-2025 Referral to occupational therapist [facility] Start: 01-09-2025 Referral to service [facility] Start: 01-09-2025 Vital signs measurements [facility] Start: 01-09-2025 [facility] Start: 01-09-2025 End: 01-09-2025 Following clinical pathway protocol [facility] Start: 01-09-2025 Bacterial nucleic acid assay [facility] Start: 01-09-2025 Verification routine [facility] Start: 01-09-2025 Admission procedure [facility] Start: 01-09-2025 Hospital admission, emergency, from emergency room, medical nature [facility] Start: 01-09-2025 End: 01-09-2025 [facility] Start: 01-09-2025 Consultation [facility] Start: 01-05-2025 Patient discharge [facility] Start: 01-04-2025 [facility] Start: 01-03-2025 End: 01-03-2025 [facility] Start: 01-03-2025 End: 01-03-2025 Care regimes management [facility] Start: 01-03-2025 Notification of physician [facility] Start: 01-03-2025 [facility] Start: 01-02-2025 Application of intermittent pneumatic compression device [facility] Start: 01-02-2025 Ambulation without limitation [facility] Start: 01-02-2025 Assessment of risk of venous thromboembolism [facility] Start: 01-02-2025 Care regimes management [facility] Start: 01-02-2025 Insertion of catheter into peripheral vein [facility] Start: 01-02-2025 Measuring intake and output [facility] Start: 01-02-2025 Notification of physician [facility] Start: 01-02-2025 Providing care according to standard [facility] [facility] Start: 01-02-2025 Referral to occupational therapist [facility] Start: 01-02-2025 Referral to service [facility] Start: 01-02-2025 End: 01-02-2025 [facility] Start: 01-02-2025 Admission procedure [facility] Start: 01-02-2025 Verification routine [facility] Start: 01-02-2025 Hospital admission, emergency, from emergency room, medical nature [facility] Start: 01-02-2025 End: 01-02-2025 [facility] Start: 01-02-2025 Consultation [facility] Start: 01-02-2025 Patient referral to dietitian [facility] Start: 12-30-2024 Assay of magnesium [facility] Start: 12-30-2024 Assay of troponin quantitative [facility] Start: 12-30-2024 Basic metabolic panel calcium total [facility] Start: 12-30-2024 Blood count complete auto&auto difrntl wbc [facility] Start: 12-30-2024 Culture bacterial quanttative colony count urine [facility] Start: 12-30-2024 Culture bct isol&prsmptv id isolate ea urine [facility] Start: 12-30-2024 Ecg routine ecg w/least 12 lds trcg only w/o i&r [facility] Start: 12-30-2024 Emergency department visit high/urgent severity [facility] Start: 12-30-2024 Gluc bld gluc mntr dev cleared fda spec home use [facility] Start: 12-30-2024 Iv infusion hydration each additional hour [facility] Start: 12-30-2024 Iv infusion therapy/prophylaxis /dx 1st to 1 hr [facility] Start: 12-30-2024 Radiologic exam chest 2 views [facility] Start: 12-30-2024 Urnls dip stick/tablet reagent auto microscopy [facility] Start: 12-30-2024 [facility] Start: 12-30-2024 End: 12-30-2024 [facility] Start: 12-29-2024 End: 12-29-2024 Patient encounter procedure Endocrinology Comment on above: Diabetes maangement Diabetes maangement/ LVM OF SOONER APPOINTMENT 11/21 Start: 12-26-2024 [facility] Start: 12-26-2024 End: 12-26-2024 [facility] Start: 12-23-2024 End: 12-23-2024 Patient encounter procedure 12/23/2024 9:45 AM EDT Office Visit Vascular Medicine [address] [place] [address] Pamella Frances, APPLICATION ASSISTANT.EXCELSIOR MACHINE TENDER [address] [id number] HOSPITAL FOLLOW UP [facility] Comment on above: HOSPITAL FOLLOW UP Start: 12-12-2024 Hepatitis B Vaccine (2 of 2 - CpG 2-dose series) Hepatitis B Vaccine (2 of 2 - CpG 2-dose series) [facility] Start: 12-07-2024 End: 12-07-2024 Patient encounter procedure 12/07/2024 3:45 PM EDT Office Visit Urology [address] [address] Eva Pichardo MD [address] [id number] L ureteral stent, s/p staghorn calculi Urology Comment on above: L ureteral stent, s/p staghorn calculi Start: 12-07-2024 End: 12-07-2024 Patient encounter procedure 12/07/2024 11:20 AM EDT Office Visit [facility] [address] [place] [address] Ksenia Hoyos, APPLICATION ASSISTANT.EXCELSIOR MACHINE TENDER [address] [place] [address] Hospital discharge, diabetes mx, need for repeat vaccines, and consideration of CT chest [facility] Comment on above: Hospital discharge, diabetes mx, need fo r repeat vaccines, and consideration of CT chest Start: 12-02-2024 Patient discharge [facility] Start: 12-01-2024 Consultation [facility] Start: 11-29-2024 [facility] Start: 11-28-2024 Enteric precautions [facility] Start: 11-28-2024 Application of intermittent pneumatic compression device [facility] Start: 11-28-2024 Following clinical pathway protocol [facility] Start: 11-28-2024 Assessment of risk of venous thromboembolism [facility] Start: 11-28-2024 Care regimes management [facility] Start: 11-28-2024 Insertion of catheter into peripheral vein [facility] Start: 11-28-2024 Measuring intake and output [facility] Start: 11-28-2024 Notification of physician [facility] Start: 11-28-2024 Providing care according to standard [facility] Start: 11-28-2024 Provision of activity privileges [facility] Start: 11-28-2024 Referral to occupational therapist [facility] Start: 11-28-2024 Referral to service [facility] Start: 11-28-2024 End: 11-28-2024 [facility] Start: 11-28-2024 Admission procedure [facility] Start: 11-28-2024 Inhalation therapy procedure [facility] Start: 11-28-2024 Patient referral to dietitian [facility] Start: 11-25-2024 Patient discharge [facility] Start: 11-24-2024 Administration of blood product [facility] Start: 11-23-2024 Admission procedure [facility] Start: 11-22-2024 [facility] Start: 11-21-2024 Care regimes management [facility] Start: 11-21-2024 Notification of physician [facility] Start: 11-21-2024 Following clinical pathway protocol [facility] Start: 11-21-2024 Ambulation without limitation [facility] Start: 11-21-2024 Assessment of risk of venous thromboembolism [facility] Start: 11-21-2024 Insertion of catheter into peripheral vein [facility] Start: 11-21-2024 Measuring intake and output [facility] Start: 11-21-2024 Providing care according to standard [facility] Start: 11-21-2024 Referral to occupational therapist [facility] Start: 11-21-2024 Referral to service [facility] Start: 11-21-2024 End: 11-21-2024 [facility] Start: 11-21-2024 Verification routine [facility] Start: 11-21-2024 Admission procedure [facility] Start: 11-21-2024 Hospital admission, emergency, from emergency room, medical nature [facility] Start: 11-21-2024 End: 11-21-2024 [facility] Start: 11-21-2024 Consultation [facility] Start: 11-18-2024 End: 11-18-2024 Patient encounter procedure 11/18/2024 3:30 PM EDT Office Visit Cardiology [address] [place] [address] [id number]; Liver Tx Evaluation; CONTACT PRECAUTIONS - C-Diff; last of the day Cardiology Comment on above: G; Liver Tx Evaluation; CONTACT PRECAUTIONS - C-Diff; last of the day Start: 11-17-2024 End: 11-17-2024 Patient encounter procedure Pulmonary Medicine Comment on above: C-diff precuations/RA-2L/Reg WC Start: 11-15-2024 End: 11-15-2024 Patient encounter procedure 11/15/2024 1:15 PM EDT Office Visit Dentistry [address] [address] Izabela Harvey, DDS [address] [phone] BEDSIDE - TRANSPLANT [facility] - [id number] [id number] - Consult Placed 11/12/24 Dentistry Comment on above: BEDSIDE - TRANSPLANT [place] - [id number] [id number] [phone] - Consult Placed 11/12/24 Start: 11-10-2024 Patient discharge [facility] Start: 11-09-2024 Consultation [facility] Start: 11-09-2024 Referral to gastroenterology service [facility] Start: 11-09-2024 Glucose measurement, body fluid [facility] Start: 11-08-2024 Urinary bladder residual urine study [facility] Start: 11-08-2024 [facility] Start: 11-05-2024 Removal of urinary catheter [facility] Start: 11-04-2024 [facility] Start: 10-31-2024 [facility] Start: 10-30-2024 Attention to flatus tube [facility] Start: 10-30-2024 Referral to gastroenterology service [facility] Start: 10-29-2024 Insertion of nasogastric tube [facility] Start: 10-29-2024 Bacteria identified in Blood by Culture Blood Culture [facility] Start: 10-29-2024 Referral to service [facility] Start: 10-29-2024 Application of intermittent pneumatic compression device [facility] Start: 10-29-2024 Following clinical pathway protocol [facility] Start: 10-29-2024 Cardiac monitoring [facility] Start: 10-29-2024 Catheterization of vein [facility] Start: 10-29-2024 Enteric precautions [facility] Start: 10-29-2024 Notification of physician [facility] Start: 10-29-2024 Vital signs measurements [facility] Start: 10-29-2024 [facility] Start: 10-29-2024 End: 10-29-2024 Consultation [facility] Start: 10-29-2024 Clostridioides difficile DNA [Presence] in Unspecified specimen by ANANTH with probe detection [facility] Start: 10-29-2024 Complete ultrasound of kidneys and bladder Kidney and Bladder [facility] Start: 10-29-2024 Lactoferrin [Presence] in Stool by Immunoassay [facility] Start: 10-29-2024 Nucleic acid assay [facility] Start: 10-29-2024 Admission procedure [facility] Start: 10-29-2024 End: 10-29-2024 Hospital admission, emergency, from emergency room, medical nature [facility] Start: 10-29-2024 End: 10-29-2024 [facility] Start: 10-29-2024 [facility] to [facility] Start: 10-28-2024 [facility] Start: 10-28-2024 Bacteria identified in Urine by Culture Urine Culture [facility] Start: 09-14-2024 Patient discharge [facility] Start: 09-06-2024 Referral to service [facility] Start: 09-06-2024 Referral to occupational therapist [facility] Start: 09-06-2024 Referral to policy and planning manager [facility] Start: 09-06-2024 Consultation [facility] Start: 09-06-2024 Care planning and problem solving actions [facility] Start: 09-06-2024 [facility] Start: 09-05-2024 Application of intermittent pneumatic compression device [facility] Start: 09-05-2024 Continuous positive airway pressure ventilation treatment [facility] Start: 09-05-2024 Cardiac monitoring [facility] Start: 09-05-2024 Care regimes management [facility] Start: 09-05-2024 Catheterization of vein [facility] Start: 09-05-2024 Consultation [facility] Start: 09-05-2024 Notification of physician [facility] Start: 09-05-2024 Vital signs measurements [facility] Start: 09-05-2024 End: 09-05-2024 [facility] Start: 09-05-2024 Following clinical pathway protocol [facility] Start: 09-05-2024 Admission procedure [facility] Start: 09-05-2024 [facility] referral to [facility] Start: 09-02-2024 Patient discharge [facility] Start: 08-31-2024 Care planning and problem solving actions [facility] Start: 08-30-2024 [facility] Start: 08-29-2024 Following clinical pathway protocol [facility] Start: 08-29-2024 Assessment of risk of venous thromboembolism [facility] Start: 08-29-2024 Care regimes management [facility] Start: 08-29-2024 Fall prevention [facility] Start: 08-29-2024 Inhalation therapy procedure [facility] Start: 08-29-2024 Insertion of catheter into peripheral vein [facility] Start: 08-29-2024 Measuring intake and output [facility] Start: 08-29-2024 Notification of physician [facility] Start: 08-29-2024 Patient referral to dietitian [facility] Start: 08-29-2024 Providing care according to standard [facility] Start: 08-29-2024 Provision of activity privileges [facility] Start: 08-29-2024 Referral to gastroenterology service [facility] Start: 08-29-2024 Referral to policy and planning manager [facility] Start: 08-29-2024 Referral to occupational therapist [facility] Start: 08-29-2024 Referral to service [facility] Start: 08-29-2024 Vital signs measurements [facility] Start: 08-29-2024 End: 08-29-2024 [facility] Start: 08-29-2024 Admission procedure [facility] Start: 08-21-2024 [facility] Start: 04-04-2024 COVID-19 Vaccine ( season) COVID-19 Vaccine ( season) [facility] Start: 04-04-2024 Influenza vaccination Influenza Vaccine (#1) [facility] Start: 2021 Prostate specific antigen measurement Prostate Cancer Screening Discussion [facility] Start: 2016 Zoster Vaccines (1 of 2) Zoster Vaccines (1 of 2) [facility] Start: 2011 Screening for malignant neoplasm of colon [facility] Start: 2001 Lipid panel Lipid Screening [facility] Start: 1988 DTaP/Tdap/Td Vaccines (1 - Tdap) DTaP/Tdap/Td Vaccines (1 - Tdap) [facility] Start: 1985 Hepatitis A Vaccine (1 of 2 - Risk 2-dose series) Hepatitis A Vaccine (1 of 2 - Risk 2-dose series) [facility] Start: 1985 Hepatitis A Vaccines (1 of 2 - Risk 2-dose series) Hepatitis A Vaccines (1 of 2 - Risk 2-dose series) [facility] Start: 1985 Hepatitis B Vaccine (1 of 3 - 19+ 3-dose series) Hepatitis B Vaccine (1 of 3 - 19+ 3-dose series) [facility] Start: 1985 Hepatitis B Vaccines (1 of 3 - 19+ 3-dose series) Hepatitis B Vaccines (1 of 3 - 19+ 3-dose series) [facility] Start: 1985 Pneumococcal vaccination Pneumococcal Vaccine (1 of 2 - PCV) [facility] Start: 1985 Pneumococcal Vaccine: 50+ (1 of 2 - PCV) Pneumococcal Vaccine: 50+ (1 of 2 - PCV) [facility] Start: 1985 Shingrix Vaccine (1 of 2) Shingrix Vaccine (1 of 2) [facility] Start: 1985 Urine microalbumin profile DTaP,Tdap,Td Vaccine (1 - Tdap) [facility] Start: 1984 Annual PCP Team Chronic Disease Visit Annual PCP Team Chronic Disease Visit [facility] Start: 1984 Anxiety Screening Anxiety Screening [facility] Start: 1984 Depression Screening Depression Screening [facility] Start: 1984 Hepatitis C screening Hepatitis C Screening [facility] Start: 1984 HIV screening HIV Screening [facility] Start: 1976 Glaucoma screening Diabetes: Retinopathy Screening [facility] Start: 1967 MMR Vaccines (1 of 1 - Standard series) MMR Vaccines (1 of 1 - Standard series) [facility] Start: 1966 Hemoglobin A1c measurement Diabetes: Hemoglobin A1C [facility] Start: 1966 HIV screening HIV Screening [facility] Start: 1966 Lipid panel Lipid Panel [facility] Start: 1966 Screening for malignant neoplasm of colon [facility] Start: 1966 Urine screening for protein Diabetes: Urine Protein Screening [facility] Start: 1966 Yearly Adult Physical Yearly Adult Physical [facility] Alanine aminotransfe rase [Enzymatic activity/volume] in Serum or Plasma [facility] End: 10-04-2024 Albumin [Mass/volume] in Body fluid [facility] Work Phone: Comment on above: Once (Lab) for 1 Occurrences starting until 10/04/2024 Once for 1 Occurrenc es starting 10/04/2024 until 10/04/2024 Albumin [Mass/volume ] in Serum or Plasma [facility] Alkaline phosphatase [Enzymatic activity/volume] in Serum or Plasma [facility] Anion gap in Serum o r Plasma [facility] End: 10-04-2024 Bacteria identified in Body fluid by Culture [facility] Work Phone: Comment on above: Once (Lab) for 1 Occurrences starting until 10/04/2024 Bilirubin, total measurement [facility] BUN/Creatinine ratio [facility] Calcium [Mass/volume ] in Serum or Plasma [facility] Carbon dioxide, tota l [Moles/volume] in Central venous blood [facility] CBC W Auto Different ial panel - Blood [facility] End: 10-04-2024 Clostridioides difficile toxin A+B tcdA+tcdB genes [Presence] in Stool by ANANTH with probe detection C. difficile, PCR Microbiology STAT STAT (Lab) for 1 Occurrences starting 10/04/2024 until 10/04/2024 [facility] Work Phone: Comment on above: STAT (Lab) for 1 Occurrences starting until 10/04/2024 Comprehensive metabo lic 2000 panel - Serum or Plasma [facility] Creatinine [Mass/vol ume] in Serum or Plasma [facility] Cytology report of B carmelina fluid Cyto stain [facility] Erythrocyte mean corpuscular volume determination [facility] End: 10-04-2024 Extra Urine Toney Tube Extra Urine Toney Tube Lab Timed Once for 1 Occurrences starting 10/04/2024 until 10/04/2024 [facility] Work Phone: Comment on above: Once for 1 Occurrences starting 10/05/19 until 10/04/2024 End: 10-04-2024 Glucose [Mass/volume] in Body fluid [facility] Work Phone: Comment on above: Once (Lab) for 1 Occurrences starting until 10/04/2024 Once for 1 Occurrenc es starting 10/04/2024 until 10/04/2024 Glucose [Mass/volume ] in Serum or Plasma [facility] Glucose [Mass/volume ] in Serum or Plasma [facility] Hematocrit [Volume Fraction] of Blood [facility] Hemoglobin [Mass/vol ume] in Blood [facility] End: 10-04-2024 Hemoglobin.gastrointestin al.lower [Presence] in Stool by Immunoassay Fecal Occult Blood Immunoassy Microbiology STAT Once (Lab) for 1 Occurrences starting 10/04/2024 until 10/04/2024 [facility] Work Phone: Comment on above: Once (Lab) for 1 Occurrences starting until 10/04/2024 Hepatitis A virus Ig M Ab [Presence] in Serum [facility] Hepatitis B core ant ibody measurement, IgM type [facility] Hepatitis B surface antigen measurement [facility] Hepatitis C antibody measurement [facility] INR in Blood by Coagulation assay [facility] End: 10-04-2024 Lactate dehydrogenase [Enzymatic activity/volume] in Body fluid by Lactate to pyruvate reaction [facility] Work Phone: Comment on above: Once (Lab) for 1 Occurrences starting until 10/04/2024 Once for 1 Occurrenc es starting 10/04/2024 until 10/04/2024 Lactate dehydrogenas e [Enzymatic activity/volume] in Body fluid by Pyruvate to lactate reaction [facility] Lactic acid measurement [facility] Lactic acid measurement [facility] Leukocytes [#/volume ] in Blood [facility] Magnesium measurement [facility] Mean corpuscular hemoglobin concentration determination [facility] Mean corpuscular hemoglobin determination [facility] Measurement of renal function [facility] Neutrophil count [facility] Neutrophil percent differential count [facility] End: 10-04-2024 Non-gynecological cytology method study Cytology (Non-Gynecologic) Pathology and Cytology Routine Once (Lab) for 1 Occurrences starting 10/04/2024 until 10/04/2024 [facility] Service Area Work Phone: Comment on above: Once (Lab) for 1 Occurrences starting until 10/04/2024 Ova OR parasites identification [facility] Patient Education [facility] Work Phone: Patient referral [facility] Work Phone: End: 10-04-2024 pH of Body fluid [facility] Work Phone: Comment on above: Once (Lab) for 1 Occurrences starting until 10/04/2024 Platelets [#/volume] in Blood [facility] Potassium measurement [facility] End: 10-04-2024 Protein [Mass/volume] in Body fluid [facility] Work Phone: Comment on above: Once (Lab) for 1 Occurrences starting until 10/04/2024 Once for 1 Occurrenc es starting 10/04/2024 until 10/04/2024 Protein [Mass/volume ] in Body fluid [facility] Prothrombin time [facility] Red blood cell count [facility] Red cell distributio n width determination [facility] Respiratory pathogen s DNA and RNA panel - Respiratory specimen by ANANTH with probe detection [facility] Serum chloride measurement [facility] Sodium measurement [facility] End: 10-04-2024 Stool Pathogen Panel, PCR Stool Pathogen Panel, PCR Microbiology STAT Once (Lab) for 1 Occurrences starting 10/04/2024 until 10/04/2024 [facility] Work Phone: Comment on above: Once (Lab) for 1 Occurrences starting until 10/04/2024 Total protein measurement [facility] UA DIP, URINE (POC) UA DIP, URIN E (POC) Lab Routine Screening for genitourinary condition 1 Occurrences starting 12/07/2024 [facility] Work Phone: Comment on above: 1 Occurrences starting 12/07/2024 Urea nitrogen [Mass/volume] in Serum or Plasma [facility] End: 10-04-2024 Urinalysis complete W Reflex Culture panel - Urine [facility] Service Area Work Phone: Comment on above: Once (Lab) for 1 Occurrences starting until 10/04/2024 Once for 1 Occurrenc es starting 10/04/2024 until 10/04/2024 Urine culture [facility] Urine culture [facility] Urine culture [facility] Urine culture [facility] Urine culture [facility] Urine culture [facility] Urine culture [facility] Urine culture [facility] Urine culture [facility] Immunizations Immunization Date Immunization Notes Care Provider Fa [facility] 11-16-2024 COVID-19 vaccine, ag e 12+ yr ([employer] [facility]) Jeremi Abreu RN Work Phone: [facility] 11-15-2024 pneumococcal conjuga te (PCV20) vaccine, 20 valent (PREVNAR 20) Marah Arauz [facility] Work Phone: [facility] 11-14-2024 hepatitis A vaccine, adult dosage Marah Claroswellington ENGINEERING ADMINISTRATOR Work Phone: [facility] 11-14-2024 Hepatitis B vaccine (recombinant), CpG adjuvanted Marah Claroswellington ENGINEERING ADMINISTRATOR Work Phone: [facility] 11-14-2024 tetanus toxoid, redu danica diphtheria toxoid, and acellular pertussis vaccine, adsorbed Marah Helwellington ENGINEERING ADMINISTRATOR Work Phone: [facility] 09-20-2024 influenza, seasonal, injectable Jeremi Abreu RN Work Phone: [facility] Work Phone: 09-15-2024 tuberculin skin test ; purified protein derivative solution, intradermal Jeremi Abreu RN Work Phone: [facility] Payers Date Payer Category Payer Self-pay 2024 Medicaid [id number] 2024 Medicaid [id number] 1965 Unknown [id number] 1965 Unknown [id number] Unknown [id number] Social History Date Type Detail Facility Start: 10-04-2024 End: 04-09-2025 Tobacco smoking status NHIS Ex-smoker [facility] Work Phone: History [facility] tobacco use [facility] Work [facility]: Start: 10-04-2024 End: 11-11-2024 Tobacco use and exposure Smokeless tobacco non-user [facility] Work Phone: Start: 10-04-2024 Alcoholic beverage intake Ex-drinker (finding) [facility] Work Phone: Start: 10-04-2024 End: 11-15-2024 History of Social function [facility] Start: 10-04-2024 End: 11-15-2024 Tobacco use panel [facility] Start: 1965 Sex assigned at Not on file [facility] Work Phone: Start: 09-24-2024 End: 10-04-2024 Exposure to SARS-CoV-2 (event) Not sure [facility] Work Phone: Start: 10-11-2024 End: 11-21-2024 Sex Male (finding) [facility] Start: 1965 Sex Assigned At Male [facility] Start: 11-11-2024 End: 11-18-2024 Alcoholic beverage intake Lifetime non-drinker (finding) [facility] Has the [employer], [employer], [employer], or water company threatened to shut off services in your home in past 12Mo No [facility] (I/We) worried wheth er (my/our) food would run out before (I/we) got money to buy more. Sometimes true [facility] In the past 12 month s, has lack of transportation kept you from medical appointments or from getting medications? Yes [facility] Medical Equipment Procedure Code Equipment Code Equipment Origin al Text Equipment Identifier Dates Insertion, PleurX catheter system, pleural cavity FDA Start: 03-30-2025 Insertion, PleurX catheter system, pleural cavity FDA Start: 03-30-2025 Cystoscopic insertion of stent ([id number]) ()[id number] FDA Start: 09-05-2024 Goals Date Patient Goal Desired Activity /State Functional Status Date Assessment Result Facility 04-10-2025 Functional status Bedrest [facility] Work Phone: 02-27-2025 Functional status Ambulates [facility] Work Phone: 02-17-2025 Functional status Bathroom Privi lege;Back to bed [facility] Work Phone: 01-31-2025 Functional status Ambulates [facility] Work Phone: 01-21-2025 Functional status Ambulates [facility] Work Phone: 01-05-2025 Functional status With Assist of 1 [facility] Work Phone: 01-05-2025 Functional status Ambulates;Bath room Privilege [facility] Work Phone: 12-02-2024 Functional status Ambulates [facility] Work Phone: 11-25-2024 Functional status Bedrest [facility] Work Phone: 11-18-2024 Are you deaf, or do you have serious difficulty hearing Yes 11/18/2024 10:13 AM Anika Andino RN Yes [facility] 11-18-2024 Are you blind, or do you have serious difficulty seeing, even when wearing glasses No 11/18/2024 10:13 AM EDT Anika Carolina, DAYSI No [facility] 11-18-2024 Do you have serious difficulty walking or climbing stairs Yes 11/18/2024 10:13 AM EDT Anika Carolina, DAYSI Yes [facility] 11-18-2024 Do you have difficul ty dressing or bathing Yes 11/18/2024 10:13 AM EDT Anika Carolina, DAYSI Yes [facility] 11-18-2024 Because of a physica l, mental, or emotional condition, do you have difficulty doing errands alone such as visiting a physician's office or shopping Yes 11/18/2024 10:13 AM EDT Anika Carolina, DAYSI Yes [facility] 11-11-2024 Functional status Bedpan [facility] Work Phone: 09-15-2024 Functional status Ambulates [facility] Work Phone: 09-02-2024 Functional status Bathroom Privilege [facility] Work Phone: Mental Status Date Assessment Result Facility 04-10-2025 Cognitive function Awake;Appropr iate;Follows Commands [facility] Work Phone: 04-08-2025 Cognitive function Cooperative [facility] Work Phone: 04-07-2025 Cognitive function Awake;Drowsy [facility] Work Phone: 03-30-2025 Cognitive function Voice/Name [facility] Work Phone: 03-11-2025 Cognitive function Appropriate;F ollows Commands;Drowsy [facility] Work Phone: 03-04-2025 Cognitive function Awake;Alert;Appropriat e [facility] Work Phone: 02-27-2025 Cognitive function Voice/Name [facility] Work Phone: 02-17-2025 Cognitive function Voice/Name [facility] Work Phone: 02-16-2025 Cognitive function Alert;Appropr iate;Follows Commands;Drowsy [facility] Work Phone: 02-11-2025 Cognitive function Awake;Alert;Appropriat e [facility] Work Phone: 01-31-2025 Cognitive function Cooperative;A nxious;Talkat chris [facility] Work Phone: 01-30-2025 Cognitive function Voice/Name [facility] Work Phone: 01-28-2025 Cognitive function Awake;Alert;A ppropriate;Fo llows Commands [facility] Work Phone: 01-21-2025 Cognitive function Voice/Name [facility] Work Phone: 01-05-2025 Cognitive function Voice/Name [facility] Work Phone: 01-02-2025 Cognitive function Awake;Alert;Appropriat [facility] Work Phone: 12-30-2024 Cognitive function Awake;Alert;A ppropriate;Fo llows Commands [facility] Work Phone: 12-02-2024 Cognitive function Voice/Name [facility] Work Phone: 11-25-2024 Cognitive function Voice/Name [facility] Work Phone: 11-18-2024 Because of a physica l, mental, or emotional condition, do you have serious difficulty concentrating, remembering, or making decisions Yes 11/18/2024 10:13 AM Anika Andino RN Yes [facility] 11-10-2024 Cognitive function Voice/Name [facility] Work Phone: 09-29-2024 Cognitive function Awake;Alert;A ppropriate;Fo llows Commands [facility] Work Phone: 09-14-2024 Cognitive function Appropriate;Cooperativ e [facility] Work Phone: 09-14-2024 Cognitive function Voice/Name [facility] Work Phone: 09-02-2024 Cognitive function Voice/Name [facility] Work Phone: Clinical Notes 08-30-2024 to 04-20-2025 Note Date & Type Note Facility 04-20-2025 Note [facility] 04-10-2025 Discharge summary Note Date/Time April 10, 2025 10:52am [facility] Medical Records Department [address] [place] [address] Discharge Summary 04/10/25 1046 MR#: [id number] Acct: [id number] Name: FRANKLIN WIGGINS Rep #:[id number] : 1965 59 From: Anurag Lucero PCP: YG Pena Status:ADM I N Location: [place] [address] Providers Date of Admission: 04/07/25 Date of [...] was found not transplant candidate by [facility] and he keeps changing mind to go [...] Clarity Cloudy, Urine pH 7.0, Ur Specific Vendor 1.010, Urine Protein 30 H, Urine Glucose [...] % (Auto) 62.8, Lymph % (Auto) 19.5, Kern % (Auto) 10.6 H, Eos % (Auto) [...] YG Elias; Dr. Anurag Irene MD~ Signed [facility] Work Phone: 1(876) 689-877009-07-2025 Discharge summary Author Anurag Irene [facility] Note Date/Time April 10, 2025 10:46am [facility] Medical Records Department [address] [place] [address] Instructions for Home/Discharge Instructions 04/10/25 0835 MR#: [id number] Acct: [id number] Name: FRANKLIN WIGGINS Rep #:[id number] : [...] MD; Dr. Rick Carlin, DO ~ Signed [facility] Work Phone: 1(480) 855-729309-07-2025 [facility]09-06-2025 Progress note Author Anurag Irene [facility] Note Date/Time April 09, 2025 1:59pm [facility] Medical Records Department [address] [place] [address] Progress Note - Hospitalist 04/09/25 1348 MR#: [id number] Acct: [id number] Name: FRANKLIN WIGGINS Rep #:[id number] : 1965 59 From: Anurag Lucero PCP: YG Pena Status:ADM I N Location: [place] [address] Reason for Visit Chief Complaint: Confusion, weakness. [...] portosystemicanastomosis, esophageal varices: [facility] Has beenadmitted multiple times recently for think. Once patient was in hospice care and requested PleurX catheter in the abdomen for ascites drainage. Ultrasound- guided tunneled catheter was inserted on 03/30. But patient got admitted on 04/07 after hospice revoked. In the past, he was found not transplant candidate by [facility] and he keeps changing mind to go [...] 201 H Charges/Coding Visit Charges Inpatient E&M: 48182 Subs Hosp L2 04/09/25 7099 <Electronically signed by Anurag Irene MD> Cosigner Signature (if applicable): CC: ~ Signed [facility] Work Phone: 1(653) 684-387909-05-2025 Progress note Author [facility] Note Date/Time April 08, 2025 4:58pm [facility] Medical Records Department [address] [place] [address] Progress Note - Hospitalist 04/08/25 1651 MR#: [id number] Acct: [id number] Name: FRANKLIN WIGGINS Rep #:[id number] : 1965 59 From: Rick Carlin DO PCP: YG Pena Status:ADM I N Location: MS3 [id number] Reason for Visit Chief Complaint: Confusion, weakness. [...] (Auto) 67.0, Lymph % (Auto) 16.8 L, Kern % (Auto) 9.9, Eos % (Auto) 5.2 [...] Sl. Cloudy, Urine pH 6.5, Ur Specific Vendor 1.015, Urine Protein 100 H, Urine Glucose [...] Neut % (Auto) 59.8, Lymph % (Auto) 22.5,Kern % (Auto) 10.7 H, Eos % (Auto) [...] 35 minutes Charges/Coding Visit Charges Inpatient E&M: 04113 Subs Hosp L2 04/08/25 9049 <Electronically signed by Rick Carlin DO> Cosigner Signature (if applicable): CC: ~ Signed [facility] Work Phone: 1(270) 919-417309-05-2025 Progress note Author Maria Guadalupe Shore [facility] Note Date/Time April 10, 2025 1:19pm [facility] Medical Records Department [address] [place] [address] Progress Note - Hospitalist 04/08/25352 MR#: [id number] Acct: [id number] Name: FRANKLIN WIGGINS Rep #:[id number] : 1965 59 From: Maria Guadalupe Shore MD PCP: BRITTANY PenaC Status:ADM I N Location: [place] [address] Hospitalist Note Respiratory panel with + rhinovirus. 04/08/25352 <Electronically signed by Maria Guadalupe Shore MD> Cosigner Signature (if applicable): CC: ~ Signed [facility] Work Phone: 1(689) 365-541209-05-2025 Discharge summary Author [facility] Note Date/Time April 07, 2025 11:52pm [facility] Medical Records Department [address] [place] [address] Emergency Department Summary 04/07/25 MR#: [id number] Acct: [id number] Name: FRANKLIN WIGGINS Rep #:[id number] : 1965 59 From: Rachel Holland PCP: YG Pena Status:ADM I N Location: [place] [address] HPI History of Present Illness Chief Complaint: [...] he is here and has no complaints. [facility] Medical History Diffuse abdominal pain Acute hepatic [...] (Auto) 67.0 Lymph % (Auto) 16.8 L Kern % (Auto) 9.9 Eos % (Auto) 5.2 [...] Color Urine Clarity Urine pH Ur Specific Vendor Urine Protein Urine Glucose (UA) Urine Ketones Urine Occult Blood Urine Nitrite Urine Bilirubin Urine Urobilinogen Ur Leukocyte Esterase Urine RBC Urine WBC Ur Squamous Epith Cells Urine Bacteria Urine Mucus POC Glucose 81 04/07/25 21:42 WBC RBC Hgb Hct MCV MCH MCHC RDW Std Deviation RDW Coeff of Francis Plt Count MPV Immature Gran % (Auto) Neut % (Auto) Lymph % (Auto) Kern % (Auto) Eos % (Auto) Baso % (Auto) Absolute Neuts (auto) Absolute Lymphs (auto) Nucleated RBC % Sodium Potassium Chloride Carbon Dioxide Anion Gap BUN Creatinine Est GFR (MDRD) Non-Af BUN/Creatinine Ratio Glucose Calcium Phosphorus Magnesium Total Bilirubin Direct Bilirubin AST ALT Alkaline Phosphatase Ammonia Total Protein Albumin Globulin Lipase Urine Color Yellow Urine Clarity Sl. Cloudy Urine pH 6.5 Ur Specific Vendor 1.015 Urine Protein 100 H Urine Glucose [...] Provider: Josy Elias Disposition Disposition: Acute Care [facility] Discharge Date/Time: 04/07/25 23:38 What to do if you have Problems For any increased pain, shortness of breath, bleeding, nausea or vomiting, chestpain, or any unexpected problems, contact your Primary Care Provider. Call [facility] ([phone]) or report to the closest Emergency Room. Call 911 if necessary. 04/07/25 8712 <Electronically signed by Rachel Joiner DO> Cosigner Signature (if applicable): CC: YG Elias ~ Signed [facility] Work Phone: [phone]) 538-760309-04-2025 History and physical note Author Maria Guadalupe Shore [facility] Note Date/Time April 07, 2025 9:47pm [facility] Medical Records Department [address] [place] [address] H&P Exam - Hospitalist 04/07/252119 MR#: [id number] Acct: [id number] Name: FRANKLIN WIGGINS Rep #:[id number] : [...] following with Dr. Rascon who presents to [facility] ED on 04/28 with increased fatigue, malaise and reported URI type symptoms as well with increasing confusion with blood sugar noted to be 80 prior to ED arrival with episode of nausea and emesis with no fevers or chills prompting patient healthcare power of defense attorney his ex- and a friend to care for him topresent him to the ED for further evaluation. Of note patient with recent 03/30/2025 ultrasound-guided placement of tunneled Pleur-X catheter for persistent cirrhotic ascites per Dr. Baledras with unfortunately then follow-up ED visit noted 04/03/2025 with paracentesis tubing unfortunately falling out with decision at that time her healthcare power of defense attorney to return the patient to home [...] 1.76, D bili 1.11, AST/ALT 48/23, alk toir190, lipase 47, ammonia level 143, urinalysis pending upon requested evaluation of patient. Discussed with ED physician and patient will be administered rectal lactulose. [facility] Medical History Diffuse abdominal pain Acute hepatic [...] (Auto) 67.0, Lymph % (Auto) 16.8 L, Kern % (Auto) 9.9, Eos % (Auto) 5.2 [...] following with Dr. Rascon who presents to [facility] ED on 04/28 with increased fatigue, malaise and reported URI type symptoms as well with increasing confusion with blood sugar noted to be 80 prior to ED arrival with episode of nausea and emesis with no fevers or chills prompting patient healthcare power of defense attorney his ex- and a friend to [...] 16 minutes. Charges/Coding Visit Charges Inpatient E&M: 66521 Init Hosp L3 Procedures Hospitalists Procedures: 40363 Advncd Care Plan 30 Min 04/07/252146 <Electronically signed by Maria Guadalupe Shore MD> Cosigner Signature (if applicable): CC: YG Elias; Dr. Maria Guadalupe Shore MD~ Signed [facility] Work Phone: 1(395) 577-366809-04-2025 History and physical note Author Maria Guadalupe Shore [facility] Note Date/Time April 07, 2025 9:47pm [facility] Medical Records Department [address] [place] [address] H&P Exam - Hospitalist 04/07/252119 MR#: [id number] Acct: [id number] Name: FRANKLIN WIGGINS Rep #:[id number] : 1965 59 From: Maria Guadalupe Shore MD PCP: Josy Elias, BEE PRODUCER-C Status:REG E R Location: ED HPI - [...] following with Dr. Rascon who presents to [facility] ED on 04/28 with increased fatigue, malaise and reported URI type symptoms as well with increasing confusion with blood sugar noted to be 80 prior to ED arrival with episode of nausea and emesis with no fevers or chills prompting patient healthcare power of defense attorney his ex- and a friend to care for him topresent him to the ED for further evaluation. Of note patient with recent 03/30/2025 ultrasound-guided placement of tunneled Pleur-X catheter for persistent cirrhotic ascites per Dr. Balderas with unfortunately then follow-up ED visit noted 04/03/2025 with paracentesis tubing unfortunately falling out with decision at that time her healthcare power of defense attorney to return the patient to home [...] 1.76, D bili 1.11, AST/ALT 48/23, alk dayy737, lipase 47, ammonia level 143, urinalysis pending upon requested evaluation of patient. Discussed with ED physician and patient will be administered rectal lactulose. [facility] Medical History Diffuse abdominal pain Acute hepatic [...] (Auto) 67.0, Lymph % (Auto) 16.8 L, Kern % (Auto) 9.9, Eos % (Auto) 5.2 [...] following with Dr. Rascon who presents to [facility] ED on 04/28 with increased fatigue, malaise and reported URI type symptoms as well with increasing confusion with blood sugar noted to be 80 prior to ED arrival with episode of nausea and emesis with no fevers or chills prompting patient healthcare power of defense attorney his ex- and a friend to [...] 16 minutes. Charges/Coding Visit Charges Inpatient E&M: 50054 Init Hosp L3 Procedures Hospitalists Procedures: 18350 Advncd Care Plan 30 Min 04/07/257 <Electronically signed by Maria Guadalupe Shore MD> Cosigner Signature (if applicable): CC: BEE PRODUCER-C Josy Elias; Dr. Maria Guadalupe Shore MD~ Signed [facility] Work Phone: 1(880) 712-763008-27-2025 [facility]08-08-2025 Discharge summary Author Alber Dunn [facility] Note Date/Time March 11, 2025 10: 05pm [facility] Medical Records Department [address] [place] [address] Emergency Department Summary 03/11/25 MR#: [id number] Acct: [id number] Name: FRANKLIN WIGGINS Rep #:[id number] : [...] insulin but he doesnot know how much. [facility] <PAULETTE Roberts - Last Filed: 03/11/25 22:00> [facility] Medical History Diffuse abdominal pain Acute hepatic [...] 100 Oxygen Delivery Method Room Air <Dr. Abler Dunn MD - Last Filed: 03/11/25 20:03> [...] <PAULETTE Roberts - Last Filed: 03/11/25 22:00> [facility] MDM Narrative Medical decision making narrative: Differential: [...] 70.2 H Lymph % (Auto) 12.6 L Kern % (Auto) 10.9 H Eos % (Auto) [...] 70.2 H Lymph % (Auto) 12.6 L Kern % (Auto) 10.9 H Eos % (Auto) [...] run high. Contact [facility]. Print Language: Sudanese Disposition Disposition: Home, Self Care What to do if you have Problems For any increased pain, shortness of breath, bleeding, nausea or vomiting, chestpain, or any unexpected problems, contact your Primary Care Provider. Call [facility] ([phone]) or report to the closest Emergency Room. Call 911 if necessary. 03/11/252204 <Electronically signed by Alber Dunn MD> Cosigner Signature (if applicable): 03/11/252199 <Electronically signed by Day CALDWELL> CC: YG Elias ~ Signed [facility] Work Phone: 1(650) 106-629107-27-2025 [facility]07-17-2025 [facility]07-16-2025 Discharge summary Author Alber Dunn [facility] Note Date/Time February 16, 2025 6:39 pm [facility] Medical Records Department [address] [place] [address] Emergency Department Summary 02/16/25 MR#: [id number] Acct: [id number] Name: FRANKLIN WIGGINS Rep #:[id number] : [...] liver enzymes. Patient will be admitted to [facility]. History & Record Review Discussion w/independent [...] diabetes mellitus Disposition Disposition: Acute Care Hospital [facility] What to do if you have Problems For any increased pain, shortness of breath, bleeding, nausea or vomiting, chestpain, or any unexpected problems, contact your Primary Care Provider. Call [facility] ([phone]) or report to the closest Emergency Room. Call 911 if necessary. 02/16/25 6726 <Electronically signed by Alber Dunn MD> Cosigner Signature (if applicable): CC: Dr. Jerald Sherwood MD ~ Signed [facility] Work Phone: 1(121) 146-387107-16-2025 Procedure [facility] 02-13-2025 Radiology Diagnostic study [facility]07-11-2025 Radiology Diagnostic study [facility]07-08-2025 Radiology Diagnostic study [facility]06-30-2025 Discharge summary Author Yaritza Leo [facility] Note Date/Time January 31, 2025 2:41 pm [facility] Medical Records Department [address] [place] [address] Discharge Summary 01/31/25 1217 MR#: [id number] Acct: [id number] Name: FRANKLIN WIGGINS Rep #:[id number] : 1965 59 From: Yaritza Leo DO PCP: Dr. Jerald Sherwood MD Status:ADM I N Location: [place] [address] Providers Date of Admission: 01/28/25 Date of [...] a 59-year-old male who presented from local snf facility to which she was discharged on [...] Final Vancomycin Resist. E. faecalis GNR lactose chamber worker 01/28/25 06:15 Blood Culture (Wb) - Anticubital [...] Self Care Charges/Coding Visit Charges Inpatient E&M: 58568 Disch Hosp >30min 01/31/25 1441 <Electronically signed by Yaritza Leo DO> Cosigner Signature (if applicable): CC: Dr. Yaritza Leo DO; Dr. Jerald Sherwood MD~ Signed [facility] Work Phone: 1(272) 562-430906-30-2025 [facility]06-30-2025 Hospital Discharge instructionsAdditional Instructions 1. Goal bowel movements with lactulose is 2-3 bowel movements daily. If you are having more than 3 bowel movements daily please decrease your lactulose from 3 times daily to 2 times daily 2. It is very important that you are compliant with your medications and utilize them as directed [facility]: [facility] 1(355) 301-841806-29-2025 Progress note Author Yaritza Leo [facility] Note Date/Time January 30, 2025 1:37 pm [facility] Medical Records Department [address] [place] [address] Progress Note - Hospitalist 01/30/25 0728 MR#: [id number] Acct: [id number] Name: FRANKLIN WIGGINS Rep #:[id number] : 1965 59 From: Yaritza Leo DO PCP: Dr. Jerald Sherwood MD Status:ADM I N Location: [place] [address] Reason for Visit Reason for Visit: Fever [...] Neut % (Auto) 53.2, Lymph % (Auto) 20.0,Kern % (Auto) 18.5 H, Eos % (Auto) [...] Preliminary GPC Poss Enterococcus sp GNR lactose chamber worker 01/28/25 03:10 Mucosa - Nose SARS-CoV-2, Influenza [...] Full code Charges/Coding Visit Charges Inpatient E&M: 99187 Subs Hosp L2 01/30/25 1337 <Electronically signed by Yaritza Leo DO> Cosigner Signature (if applicable): CC: ~ Signed [facility] Work Phone: 1(310) 726-515806-28-2025 Progress note Author Yaritza Leo [facility] Note Date/Time January 29, 2025 5:59 pm [facility] Medical Records Department [address] [place] [address] Progress Note - Hospitalist 01/29/25 0754 MR#: [id number] Acct: [id number] Name: FRANKLIN WIGGINS Rep #:[id number] : 1965 59 From: Yaritza Leo DO PCP: Dr. Jerald Sherwood MD Status:ADM I N Location: [place] [address] Reason for Visit Reason for Visit: Fever [...] (Auto) 60.8, Lymph % (Auto) 17.1 L, Kern % (Auto) 15.2 H, Eos % (Auto) [...] Full code Charges/Coding Visit Charges Inpatient E&M: 55151 Subs Hosp L2 01/29/25 2790 <Electronically signed by Yaritza Leo DO> Cosigner Signature (if applicable): CC: ~ Signed [facility] Work Phone: 1(156) 927-779906-27-2025 History and physical note Author Boone Izquierdo [facility] Note Date/Time January 28, 2025 7:26 am [facility] Medical Records Department [address] [place] [address] H&P Exam - Hospitalist 01/28/25 0710 MR#: [id number] Acct: [id number] Name: FRANKLIN WIGGINS Rep #:[id number] : 1965 59 From: Boone Izquierdo DO PCP: Dr. Jerald Sherwood MD Status:REG E R Location: ED HPI - General General Date of Service: 01/28/25 Chief Complaint: Fever. HPI Narrative FRANKLIN WIGGINS, is a 59 M who presents with fever from the detention. This ashely 59-year-old male with cirrhosis presents with fever and confusion from the detention. In emergency room, he was afebrile but [...] stable in the emergencyroom without fluid resuscitation. [facility] Medical History (Updated 01/28/25 @ 07:16 by [...] (Auto) 57.8, Lymph % (Auto) 18.8 L, Kern % (Auto) 16.7 H, Eos % (Auto) [...] Clarity Cloudy, Urine pH 8.0, Ur Specific Vendor 1.015, Urine Protein 100 H, Urine Glucose [...] be continued. Charges/Coding Visit Charges Inpatient E&M: 12033 Init Hosp L3 01/28/25 0726 <Electronically signed by Boone Izquierdo DO> Cosigner Signature (if applicable): CC: Dr. Boone Izquierdo DO; Dr. Jerald Sherwood MD~ Signed [facility] Work Phone: 1(124) 190-107106-27-2025 History and physical note Author Boone Izquierdo [facility] Note Date/Time January 28, 2025 7:26 am [facility] Medical Records Department [address] [facility] [place] [address] H&P Exam - Hospitalist 01/28/25 0710 MR#: [id number] Acct: [id number] Name: FRANKLIN WIGGINS Rep #:[id number] : 1965 59 From: Boone Izquierdo DO PCP: Dr. Jerald Sherwood MD Status:REG E R Location: ED HPI - General General Date of Service: 01/28/25 Chief Complaint: Fever. HPI Narrative FRANKLIN WIGGINS, is a 59 M who presents with fever from the detention. This ashely 59-year-old male with cirrhosis presents with fever and confusion from the detention. In emergency room, he was afebrile but [...] stable in the emergencyroom without fluid resuscitation. [facility] Medical History (Updated 01/28/25 @ 07:16 by [...] (Auto) 57.8, Lymph % (Auto) 18.8 L, Kern % (Auto) 16.7 H, Eos % (Auto) [...] Clarity Cloudy, Urine pH 8.0, Ur Specific Vendor 1.015, Urine Protein 100 H, Urine Glucose [...] bilateral basilar atelectatic pulmonary changes. Reading Location: [place] [address] Abdomen/Pelvis CT 01/28/25 05:12 IMPRESSION: Cirrhosis, collateral [...] correlate for possible hepatic colopathy. Reading Location: [facility]-2 Assessment & Plan Assessment/Plan (1) [...] be continued. Charges/Coding Visit Charges Inpatient E&M: 60085 Init Hosp L3 01/28/25 0726 <Electronically signed by Boone Izquierdo DO> Cosigner Signature (if applicable): CC: Dr. Boone Izquierdo DO; Dr. Jerald Sherwood MD~ Signed [facility] Work Phone: 1([phone]) 753-932906-27-2025 Discharge summary Author Danny Laureano-Lucero [facility] Note Date/Time January 28, 2025 6:59 am [facility] Medical Records Department [address] [place] [address] Emergency Department Summary 01/28/25 MR#: [id number] Acct: [id number] Name: FRANKLIN WIGGINS Rep #:[id number] : 1965 59 From: Danny christy DO PCP: Dr. Jerald Sherwood MD Status:REG E R Location: ED HPI History of Present Illness Chief Complaint: Confusion Narrative Narrative: Chief complaint and HPI: Fever and confusion. 59-year-old male with past medical history DM2, ABBY, HTN, HLD, liver 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 presents from [facility] for fever and confusion. History taken by [...] diarrhea, constipation, dysuria. I personally spoke with [facility] staff. The nurse is new to taking [...] Alert, grossly intact, sensation intact Psych: Cooperative [facility] Medical History Umbilical hernia Chronic hyponatremia Weakness [...] mg tablet (Xifaxan) 550 mg PO BID [facility] ea #60 tabs 09/02/24 11/28/24 Rx acetaminophen [...] liver 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 presents from [facility] for fever and confusion. Patient is a poor historian therefore history taken by EMS as well as [facility] nurse. Reported patient developed a fever of 101 ?F this evening prior to arrival. No meds were given. Nurse as well as myself does not know the patient's baseline mental status although nursing staff here that note is the patient states that wax and wanes. Nurse there states that multiple techs felt that the patient wasconfused at [facility] and that he was asking about people [...] (Auto) 57.8 Lymph % (Auto) 18.8 L Kern % (Auto) 16.7 H Eos % (Auto) [...] Color Urine Clarity Urine pH Ur Specific Vendor Urine Protein Urine Glucose (UA) Urine Ketones Urine Occult Blood Urine Nitrite Urine Bilirubin Urine Urobilinogen Ur Leukocyte Esterase Urine RBC Urine WBC Ur Squamous Epith Cells Urine Bacteria Urine Mucus 01/28/25 01/28/25 04:33 04:58 WBC RBC Hgb Hct MCV MCH MCHC RDW Std Deviation RDW Coeff of Francis Plt Count MPV Immature Gran % (Auto) Neut % (Auto) Lymph % (Auto) Kern % (Auto) Eos % (Auto) Baso % [...] Clarity Cloudy Urine pH 8.0 Ur Specific Vendor 1.015 Urine Protein 100 H Urine Glucose [...] possible hepatic colopathy. Reading Location: [place] [address] Discharge Plan Triage Chief Complaint: Confusion ED [...] MD [Primary Care Provider] - Print Language: Sudanese What to do if you have Problems For any increased pain, shortness of breath, bleeding, nausea or vomiting, chestpain, or any unexpected problems, contact your Primary Care Provider. Call [facility] ([phone]) or report to the closest Emergency Room. Call 911 if necessary. 01/28/25 0659 <Electronically signed by Danny Hutton DO> Cosigner Signature (if applicable): CC: Dr. Jerald Sherwood MD ~ Signed [facility] Work Phone: 1(706) 783-531906-27-2025 [id number] Radiology Diagnostic study [facility]06-20-2025 Discharge summary Author Anurag Irene [facility] Note Date/Time January 21, 2025 11:1 2am [facility] Medical Records Department [address] [place] [address] Transfer to [facility] Care MR#: [id number] Acct: [id number] Name: FRANKLIN WIGGINS Rep #:[id number] : 1965 59 From: Anurag Lucero PCP: YG Pena Status:ADM I N Certification of patient admission REQUIRED AT TIME OF ADMISSION. I CERTIFY THAT POST-HOSPITAL ECF SERVICES ARE REQUIRED TO BE GIVEN ON AN IN-PATIENT BASIS BECAUSE OF THE ABOVE NAMED PATIENT'S NEED FOR SHELTER CARE ON A CONTINUING BASIS FOR THE CONDITION(S) FOR WHICH HE/SHE WAS RECEIVING IN-PATIENT HOSPITAL SERVICES PRIOR TO HIS/HER TRANSFER TO THE [facility]. 01/21/25 1112<Electronically signed by Anurag Irene [...] (Auto) 63.5, Lymph % (Auto) 16.3 L, Kern % (Auto) 11.9 H, Eos % (Auto) [...] Additional Instructions / Restrictions: Follow-up in [facility] hepatology/GI. Discharge Orders/Prescriptions Prescriptions: New spironolactone 25 [...] Tovar MD; Dr. Jefferson Malave MD ~ [facility] Work Phone: 1(744) 358-520106-20-2025 Discharge summary Author Anurag Irene [facility] Note Date/Time January 21, 2025 1:29 pm [facility] Medical Records Department [address] [place] [address] Discharge Summary 01/21/25 1112 MR#: [id number] Acct: [id number] Name: FRANKLIN WIGGINS Rep #:[id number] : 1965 59 From: Anurag Lucero PCP: YG Pena Status:ADM I N Location: [place] [id number] Providers Date of Admission: 01/09/25 Date of Discharge: 01/21/25 Primary Care Physician: YG Pena Consultations 01/09/25 15:46 Consult: Rn Integrity / Pulmonary Medicine Routine Consulting Provider: Intensivists/Pulmonary [...] (Auto) 63.5, Lymph % (Auto) 16.3 L, Kern % (Auto) 11.9 H, Eos % (Auto) [...] solution (Constulose) 15 ml PO TID PRN tmsrjyyjnmrk16/27/25 L.acidophil,salivari-Bifido bifidum-Strep thermoph 175 mg capsule 1 [...] Additional Instructions / Restrictions: Follow-up in [facility] hepatology/GI. Discharge Orders/Prescriptions Prescriptions: New spironolactone 25 [...] Home Facility Charges/Coding Visit Charges Inpatient E&M: 73125 Disch Hosp >30min 01/21/25 1117 <Electronically signed [...] Elias; Dr. Anurag Irene MD ~* Signed [facility] Work Phone: 1(633) 467-780006-20-2025 [facility]06-19-2025 Progress note Author Anurag Irene [facility] Note Date/Time January 20, 2025 2:40 pm [facility] Medical Records Department [address] [place] [address] Progress Note - Hospitalist 01/20/25 1436 MR#: [id number] Acct: [id number] Name: FRANKLIN WIGGINS Rep #:[id number] : 1965 59 From: Anurag Lucero PCP: YG Pena Status:ADM I N Location: [place] [address]- Reason for Visit Reason for Visit: Diagnoses [...] (Auto) 63.5, Lymph % (Auto) 16.3 L, Kern % (Auto) 11.9 H, Eos % (Auto) [...] (Auto) 63.5, Lymph % (Auto) 16.3 L, Kern % (Auto) 11.9 H, Eos % (Auto) [...] 167 H Charges/Coding Visit Charges Inpatient E&M: 33529 Subs Hosp L2 01/20/25 1440 <Electronically signed by Anurag Irene MD> Cosigner Signature (if applicable): CC: ~ Signed [facility] Work Phone: [phone] 758-113906-18-2025 Progress note Author Anurag Irene [facility] Note Date/Time January 19, 2025 4:46 pm [facility] Medical Records Department [address] [place] [address] Progress Note - Hospitalist 01/19/2519 MR#: [id number] Acct: [id number] Name: FRANKLIN WIGGINS Rep #:[id number] : 1965 59 From: Anurag Lucero PCP: YG Pena Status:ADM I N Location: [place] [address] Reason for Visit Reason for Visit: Diagnoses [...] WBCs % 75.6, Fluid Neutrophils 20, Fluid [id number], Fluid Monocytes 3, Fluid Macrophages 46, Fluid [...] (Auto) 67.7, Lymph % (Auto) 13.6 L, Kern % (Auto) 11.0 H, Eos % (Auto) [...] gas. Correlate with surgical history. Reading Location: [id number] Paracentesis Ultrasound 01/18/25 13:08 IMPRESSION: Right lower quadrant marker was applied for paracentesis with drain the fluid volume of 2650 cc. Reading Location: [place] [address] Physical Exam Narrative Seen and examined Discussed [...] WBCs % 75.6, Fluid Neutrophils 20, Fluid [id number], Fluid Monocytes 3, Fluid Macrophages 46, Fluid [...] (Auto) 67.7, Lymph % (Auto) 13.6 L, Kern % (Auto) 11.0 H, Eos % (Auto) [...] 198 H Charges/Coding Visit Charges Inpatient E&M: 56140 Subs Hosp L2 01/19/25 1646 <Electronically signed by Anurag Irene MD> Cosigner Signature (if applicable): CC: ~ Signed [facility] Work Phone: 1([phone]) 919-132906-18-2025 Radiology Diagnostic study [facility]06-17-2025 Radiology Diagnostic study [facility]06-17-2025 Progress note Author Anurag Irene [facility] Note Date/Time January 18, 2025 1:14 pm [facility] Medical Records Department [address] [place] [address] Progress Note - Hospitalist 01/18/25 1302 MR#: [id number] Acct: [id number] Name: FRANKLIN WIGGINS Rep #:[id number] : 1965 59 From: Anurag Lucero PCP: YG Pena Status:ADM I N Location: [place] [address] Reason for Visit Reason for Visit: Diagnoses [...] (Auto) 68.1, Lymph % (Auto) 14.0 L, Kern % (Auto) 10.0, Eos % (Auto) 6.1 [...] prophylaxis: SCDs Charges/Coding Visit Charges Inpatient E&M: 73084 Subs Hosp L2 01/18/25 1314 <Electronically signed by Anurag Irene MD> Cosigner Signature (if applicable): CC: ~ Signed [facility] Work Phone: 1(655) 624-952206-17-2025 Consult note Author Mohit Santos [facility] Note Date/Time January 18, 2025 12:4 9pm [facility] Medical Records Department [address] [place] [address] Pre-Anesthesia Evaluation 01/18/25 1246 MR#: [id number] Acct: [id number] Name: FRANKLIN WIGGINS Rep #:[id number] : 1965 59 From: Mohit Santos MD PCP: YG Pena Status:ADM I N Y Race: C Location: [place] [address] 2-1 ASA Classification* ASA Classification ASA Classification: [...] injection L1/L2 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 - [facility]: 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 - [facility] Hx Hospitalization Any Problems With Anesthesia No [...] am of surgery tylenol PONV PONV - [facility]: PONV - [facility] Female HX of Motion Sickness HX of N/V After Surgery Non-Smoker Duration of Surgery greater than 60 minutes Number of Risk Factors PONV Score Height & Weight Height & Weight: Anesthesia: Height & Weight Height 5 ft 9 in 01/17/25 14:51 Weight: 111.3 kg 01/18/25 08:57 Body Mass Index (BMI) 36.2 01/18/25 03:51 Respiratory Assessment Respiratory Assessment - [facility]: Respiratory Tract Infection Hx - [facility] Hx Respiratory Tract Infection No 01/18/25 09:01 STOP Sleep Apnea STOP Sleep Apnea - [facility]: STOP Sleep Apnea - [facility] Hx Hypertension No 01/10/25 10:46 Hx Sleep [...] Tobacco Use History Tobacco Use History - [facility]: Tobacco Use History - [facility] Tobacco Use Smoking Status Former smoker 01/10/25 09:20 Hx Tobacco Use Yes 01/09/25 15:31 Years Smoking Packs Smoked per Day Smoking Cessation Date was Yes - quit smoking within 15 01/09/25 15:31 within the last 15 years years Hx Smoking Cessation Date 05/04/24 01/09/25 15:31 Hx Smoking Cessation Counseling Hematologic Medial History Hematologic Hx - [facility]: 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 Hx of Blood Transfusion No 01/09/25 15:31 [...] confused, unrespo /Reproduction History /Reproductive History - [facility]: /Reproductive Hx- [facility] Hx Now No 01/18/25 09:01 Gestational Age [...] Tablet PO Not Given DAILY [facility] Cyclobenzaprine HCl 10 mg 01/09/25 22:00 01/17/25 21:05 Cyclobenzaprine Hcl 10 Mg Tablet PO 10 mg QHS [facility] Administration Ferrous Sulfate 325 mg 01/10/25 12:00 01/18/25 11:33 Ferrous Sulfate 325 Mg Tablet PO Not Given Q48@1200 [facility] Folic Acid 1 mg 01/10/25 08:00 01/18/25 11:31 Folic Acid 1 Mg Tablet PO Not Given BREAKFAST [facility]RYSTIN Sodium Chloride 250 mls @ 15 mls/hr 01/09/25 15:34 IV .[id number] PRN Saline Flush Sodium Chloride 250 mls @ 15 mls/hr 01/09/25 15:34 IV .[id number] PRN Additional IVPB Infusion Sodium Chloride 1,000 mls @ 15 mls/hr 01/18/25 12:45 IV .Q48H [facility] Insulin Glargine 20 unit 01/09/25 22:00 01/17/25 21:05 Insulin Glargine-Yfgn 100 Unit/Ml Pen SC 20 unit QHS [facility] Administration Insulin Glargine 20 unit 01/10/25 10:00 01/18/25 11:31 Insulin Glargine-Yfgn 100 Unit/Ml Pen SC Not Given DAILY [facility] Insulin Human Lispro 0 unit 01/09/25 16:00 01/18/25 11:33 Insulin Lispro 100 Unit/Ml Insuln.Pen SC Not Given ACHS [facility] Protocol Lactulose 10 gm 01/09/25 15:46 01/12/25 14:34 Lactulose 20 Gm/30 Ml Udc PO 10 gm TID PRN Administration constipation Magnesium Chloride 128 mg 01/10/25 10:00 01/18/25 11:31 Magnesium Chloride 64 Mg Delay Rel.Tablet PO Not Given DAILY [facility] Midodrine 10 mg 01/09/25 17:00 01/18/25 12:07 Midodrine Hcl 5 Mg Tablet PO 10 mg TIDCM [facility] Administration Morphine Sulfate 1 mg 01/11/25 13:23 01/17/25 19:56 Morphine 2 Mg/Ml Syringe IV 1 mg Q4H PRN PRN Administration Pain Score 6-10 Ondansetron HCl 4 mg 01/09/25 15:46 01/12/25 13:39 Ondansetron 4 Mg/2 Ml Vial IV 4 mg Q8H PRN PRN Administration NAUSEA/VOMITING Pantoprazole Sodium 20 mg 01/10/25 10:00 01/18/25 11:32 Pantoprazole Sodium 20 Mg Tablet PO Not Given DAILY [facility] Potassium Phos/Sodium Phos 1 packet 01/09/25 22:00 01/18/25 11:32 Na Biphos/Potassium Phosphate Packet PO Not Given BID KRYSTIN Rifaximin 550 mg 01/09/25 22:00 01/17/25 21:06 Rifaximin 550 Mg Tablet PO 550 mg BID KRYSTIN Administration Sodium Bicarbonate 650 mg 01/09/25 22:00 01/18/25 11:32 Sodium Bicarbonate 650 Mg Tablet PO Not Given BID [facility] Sodium Chloride 10 - 40 ml 01/09/25 15:34 01/18/25 08:33 0.9% Saline Lock 10 Ml Syringe IV 20 ml UD PRN Administration SALINE FLUSH Thiamine HCl 100 mg 01/10/25 10:00 01/18/25 11:32 Thiamine Hydrochloride 100 Mg Tablet PO Not Given DAILY [facility] PFSH Medical History (Updated 01/17/25 @ 16:52 [...] MD Cosigner Signature: Date CC: ~ Signed [facility] Work Phone: 1(229) 751-159006-16-2025 Consult note Author Buster Carmichael [facility] Note Date/Time January 17, 2025 4:57 pm [facility] Medical Records Department [address] [place] [address] Consultation 01/17/25 1522 MR#: [id number] Acct: [id number] Name: FRANKLIN WIGGINS Rep #:[id number] : 1965 59 From: Buster brewster MD PCP: Josy Elias BEE PRODUCER-C Status:ADM I N Location: [place] [address] Assessment & Plan Assessment/Plan (1) Spinal stenosis, [...] be 8- 10/10 in severity when moving. [facility] Medical History (Updated 01/17/25 @ 16:52 by [...] (Auto) 67.2, Lymph % (Auto) 12.9 L, Kern % (Auto) 11.5 H, Eos % (Auto) 6.8 H, Baso % (Auto) 0.5, Absolute Neuts (auto) 5.7, Absolute Lymphs (auto) 1.09, Nucleated RBC % 0 01/17/25 06:28: POC Glucose 173 H 01/17/25 11:26: POC Glucose 141 H 01/17/25 1657 <Electronically signed by Buster Carmichael MD> Cosigner Signature (if applicable): CC: YG Elias~ Signed [facility] Work Phone: 1(279) 747-105706-16-2025 Progress note Author Anurag Irene [facility] Note Date/Time January 17, 2025 2:32 pm [facility] Medical Records Department [address] [place] [address] Progress Note - Hospitalist 01/17/25 1420 MR#: [id number] Acct: [id number] Name: FRANKLIN WIGGINS Rep #:[id number] : 1965 59 From: Anurag Lucero PCP: YG Pena Status:ADM I N Location: [place] [address] Reason for Visit Reason for Visit: Diagnoses [...] (Auto) 67.2, Lymph % (Auto) 12.9 L, Kern % (Auto) 11.5 H, Eos % (Auto) [...] prophylaxis: SCDs Charges/Coding Visit Charges Inpatient E&M: 56460 Subs Hosp L2 01/17/25 9336 <Electronically signed by Anurag Irene MD> Cosigner Signature (if applicable): CC: ~ Signed [facility] Work Phone: 1(291) 214-806506-16-2025 [facility]06-15-2025 Progress note Author Cielo Tovar [facility] Note Date/Time January 16, 2025 3:37 pm [facility] Medical Records Department [address] [place] [address] Progress Note 01/16/25 1236 MR#: [id number] Acct: [id number] Name: FRANKLIN WIGGINS Rep #:[id number] : 1965 59 From: Cielo Tovar MD PCP: YG Pena Status:ADM I N Location: [place] [address] Subjective Subjective Patient seen and examined. He [...] (Auto) 64.9, Lymph % (Auto) 14.6 L, Kern % (Auto) 12.7 H, Eos % (Auto) [...] at home. Charges/Coding Visit Charges Inpatient E&M: 90433 Subs Hosp L2 01/16/25 1537 <Electronically signed by Cielo Tovar MD> Cielo Tovar MD Cosigner Signature (if applicable): CC: ~ Signed [facility] Work Phone: 1(756) 117-165706-14-2025 Consult note Author Buster Hahn [facility] Note Date/Time January 15, 2025 6:46 pm [facility] Medical Records Department [address] [place] [address] Pharmacokinetic/Renal -Consult 01/15/25 1846 MR#: [id number] Acct: [id number] Name: FRANKLIN WIGGINS Rep #:[id number] : 1965 59 From: Buster farrell formerly [facility] PCP: YG Pnea Status:ADM I N Y Location: [place] [address] Consult Antibiotic Management Pharmacy has been consulted [...] 01/15/25 1846 <Electronically signed by Buster Nieves formerly [facility]> Date _ Buster Hahn formerly [facility] Cosigner Signature (if applicable): Date CC: ~ Signed [facility] Work Phone: 1(335) 471-592506-14-2025 Progress note Author [facility] Note Date/Time January 15, 2025 6:29 pm [facility] Medical Records Department [address] [place] [address] Progress Note 01/15/25 1321 MR#: [id number] Acct: [id number] Name: FRANKLIN WIGGINS Rep #:[id number] : 1965 59 From: Cielo Tovar MD PCP: YG Pena Status:ADM I N Location: [place] [address] Subjective Subjective Patient seen and examined. He [...] (Auto) 65.6, Lymph % (Auto) 13.2 L, Kern % (Auto) 13.6 H, Eos % (Auto) [...] at multiple levels, as described. Reading Location: [place] [address] Physical Exam Const alert, oriented x3 and [...] at home. Charges/Coding Visit Charges Inpatient E&M: 78183 Subs Hosp L2 01/15/25 7293 <Electronically signed by Cielo Tovar MD> Cielo Tovar MD Cosigner Signature (if applicable): CC: ~ Signed [facility] Work Phone: 1(207) 547-937906-13-2025 Consult note Author Andreia [facility] Note Date/Time January 14, 2025 8:04 pm [facility] Medical Records Department [address] [place] [address] Pharmacokinetic/Renal -Consult 01/14/252002 MR#: [id number] Acct: [id number] Name: FRANKLIN WIGGINS Rep #:[id number] : 1965 59 From: Andreia Carvalho PCP: YG Pena Status:ADM I N Y Location: [place] [address] Consult Antibiotic Management Pharmacy has been consulted [...] Signature (if applicable): Date CC: ~ Signed [facility] Work Phone: 1(889) 859-330006-13-2025 Progress note Author Cielo Tovar [facility] Note Date/Time January 14, 2025 5:19 pm [facility] Medical Records Department [address] [place] [address] Progress Note 01/14/25 1706 MR#: [id number] Acct: [id number] Name: FRANKLIN WIGGINS Rep #:[id number] : 1965 59 From: Cielo Tovar MD PCP: YG Pena Status:ADM I N Location: [place] [address] Subjective Subjective Patient seen and examined. He [...] (Auto) 65.3, Lymph % (Auto) 13.5 L, Kern % (Auto) 14.3 H, Eos % (Auto) [...] at multiple levels, as described. Reading Location: [place] [address] Thoracic Spine MRI 01/13/25 10:30 IMPRESSION: Abnormal marrow signal at T12 and L1. No acute compression deformity identified. Can not exclude metastatic involvement of these 2 vertebral bodies. Degenerative changes in the remainder of the lumbar spine. There is mild spinal stenosis at the level of T10-T11 and T11-T12. The patient could not tolerate postcontrast imaging. There is no cord compression Reading Location: [facility] Chest CT 01/14/25 08:06 IMPRESSION: 1. Partially visualized severe degenerative changes of T11-T12 with areas of erosive changes and lytic lesions. Metastasis can not be excluded. 2. Cirrhosis and ascites. 3. Mild lung emphysema. No suspicious nodules or focal consolidation. Reading Location: [facility] Physical Exam Const alert, oriented x3 and [...] medically stable. Charges/Coding Visit Charges Inpatient E&M: 51799 Subs Hosp L2 01/14/25 9951 <Electronically signed by Cielo Tovar MD> Cielo Tovar MD Cosigner Signature (if applicable): CC: ~ Signed [facility] Work Phone: 1(950) 571-852406-13-2025 Radiology Diagnostic study [facility]06-12-2025 Progress note Author Cielo [facility] Note Date/Time January 13, 2025 6:28 pm [facility] Medical Records Department [address] [place] [address] Progress Note 01/13/25 1517 MR#: [id number] Acct: [id number] Name: FRANKLIN WIGGINS Rep #:[id number] : 1965 59 From: Cielo Tovar MD PCP: YG Pena Status:ADM I N Location: [place] [address] Subjective Subjective Patient seen and examined. He [...] (Auto) 65.6, Lymph % (Auto) 14.4 L, Kern % (Auto) 13.7 H, Eos % (Auto) [...] medically stable. Charges/Coding Visit Charges Inpatient E&M: 61294 Subs Hosp L2 01/13/25 4830 <Electronically signed by Cielo Tovar MD> Cielo Tovar MD Cosigner Signature (if applicable): CC: ~ Signed [facility] Work Phone: 1(718) 897-438506-12-2025 Consult note Author Francheska Montoya [facility] Note Date/Time January 13, 2025 9:36 am [facility] Medical Records Department [address] [place] [address] Pharmacokinetic/Renal -Consult 01/13/25 0934 MR#: [id number] Acct: [id number] Name: FRANKLIN WIGGINS Rep #:[id number] : 1965 59 From: Francheska Mcfarlane PCP: Josy Elias BEE PRODUCER-[place]ora Status:ADM I N Y Location: [place] [address] Consult Antibiotic Management Pharmacy has been consulted [...] Signature (if applicable): Date CC: ~ Signed [facility] Work Phone: 1(289) 331-918506-11-2025 Progress note Author Cielo [facility] Note Date/Time January 12, 2025 4:51 pm [facility] Medical Records Department [address] [place] [address] Progress Note 01/12/25 1646 MR#: [id number] Acct: [id number] Name: FRANKLIN WIGGINS Rep #:[id number] : 1965 59 From: Cielo Tovar MD PCP: YG Pena Status:ADM I N Location: [place] [address] Subjective Subjective Patient seen and examined. He [...] (Auto) 68.2, Lymph % (Auto) 11.6 L, Kern % (Auto) 12.1 H, Eos % (Auto) [...] his facility. Charges/Coding Visit Charges Inpatient E&M: 43865 Subs Hosp L2 01/12/25 1651 <Electronically signed by Cielo Tovar MD> Cielo Tovar MD Cosigner Signature (if applicable): CC: ~ Signed [facility] Work Phone: 1(319) 260-354106-11-2025 Consult note Author Dilcia Vanessa [facility] Note Date/Time January 11, 2025 10:4 8pm [facility] Medical Records Department [address] [place] [address] Pharmacokinetic/Renal -Consult 01/11/251942 MR#: [id number] Acct: [id number] Name: FRANKLIN WIGGINS Rep #:[id number] : 1965 59 From: Dilcia Vanessa PCP: YG Pena Status:ADM I N Y Location: [place] [address] Consult Antibiotic Management Pharmacy has been consulted [...] Dilcia montalvo> Date _ Dilcia Vanessa 01/11/25 831 <Electronically signed by Yaritza Holland> Cosigner Signature (if applicable): Date Yaritza Leo DO CC: ~ Signed [facility] [facility] Work Phone: 1(457) 202-646006-10-2025 Progress note Author Cielo Tovar [facility] Note Date/Time January 11, 2025 5:51 pm [facility] Medical Records Department [address] [place] [address] Progress Note 01/11/25 1510 MR#: [id number] Acct: [id number] Name: FRANKLIN WIGGINS Rep #:[id number] : 1965 59 From: Cielo Tovar MD PCP: YG Pena Status:ADM I N Location: [place] [address] Subjective Subjective Patient seen and examined. He [...] % (Auto) Cancelled, Lymph % (Auto) Cancelled, Kern % (Auto) Cancelled, Eos % (Auto) Cancelled, [...] Drop Cells Cancelled, Ovalocytes Cancelled, Stomatocytes Cancelled, [place] Bodies Cancelled, Paloma Cells Cancelled, Bite Cells [...] (Auto) 69.6, Lymph % (Auto) 12.6 L, Kern % (Auto) 11.8 H, Eos % (Auto) [...] of anemia Charges/Coding Visit Charges Inpatient E&M: 12297 Subs Hosp L2 01/11/25 1751 <Electronically signed by Cielo Tovar MD> Cielo Tovar MD Cosigner Signature (if applicable): CC: ~ Signed [facility] Work Phone: 1(386) 290-243406-10-2025 Consult note Author Jefferson Malave [facility] Note Date/Time January 11, 2025 4:41 pm [facility] Medical Records Department [address] [place] [address] Consultation - Surgical 01/11/25 1634 MR#: [id number] Acct: [id number] Name: FRANKLIN WIGGINS Rep #:[id number] : 1965 59 From: Jefferson Malave MD PCP: YG Pena Status:ADM I N Location: [place] [address] Assessment & Plan Assessment/Plan (1) Umbilical hernia: [...] findings on CT consistent with portal hypertension. [facility] Medical History (Updated 01/11/25 @ 16:41 by [...] % (Auto) Cancelled, Lymph % (Auto) Cancelled, Kern % (Auto) Cancelled, Eos % (Auto) Cancelled, [...] Drop Cells Cancelled, Ovalocytes Cancelled, Stomatocytes Cancelled, [place] Bodies Cancelled, Paloma Cells Cancelled, Bite Cells [...] (Auto) 69.6, Lymph % (Auto) 12.6 L, Kern % (Auto) 11.8 H, Eos % (Auto) [...] 48 hours. Charges/Coding Visit Charges Inpatient E&M: 62149 Init Hosp L3 01/11/25 1641 <Electronically signed by Jefferson Malave MD> Cosigner Signature (if applicable): CC: YG Elias~ Signed [facility] Work Phone: 1(100) 995-741806-10-2025 Progress note Author Bola Meraz [facility] Note Date/Time January 11, 2025 9:07 am [facility] Medical Records Department [address] [place] [address] Progress Note - Rn Integrity 01/11/25 0722 MR#: [id number] Acct: [id number] Name: FRANKLIN WIGGINS Rep #:[id number] : [...] scheduled midodrine. This note was generated with [employer] dictation software. It may contain incorrectwords, spelling, [...] % (Auto) Cancelled, Lymph % (Auto) Cancelled, Kern % (Auto) Cancelled, Eos % (Auto) Cancelled, [...] Drop Cells Cancelled, Ovalocytes Cancelled, Stomatocytes Cancelled, [place] Bodies Cancelled, [place] Cells Cancelled, Bite Cells Cancelled, Crenated Cell [...] (Auto) 69.6, Lymph % (Auto) 12.6 L, Kern % (Auto) 11.8 H, Eos % (Auto) [...] hypertension. No liver masses identified. Reading [facility] Physical Exam [...] flat affect Charges/Coding Visit Charges Inpatient E&M: 45453 Subs Hosp L2 01/11/25 0907 <Electronically signed by Bola Meraz DO> Cosigner Signature (if applicable): CC: ~ Signed [facility] Work Phone: 1(384) 866-606106-10-2025 Consult note Author Boone Garcia [facility] Note Date/Time January 11, 2025 2:14 am [facility] Medical Records Department [address] [place] [address] Pharmacokinetic/Renal -Consult 01/11/25 0211 MR#: [id number] Acct: [id number] Name: FRANKLIN WIGGINS Rep #:[id number] : [...] Signature (if applicable): Date CC: ~ Signed [facility] Work Phone: 1(271) 143-511906-09-2025 Progress note [facility] Note Date/Time January 10, 2025 6:23p [facility] Medical Records Department [address] [place] [address] Progress Note 01/10/251815 MR#: [id number] Acct: [id number] Name: ROSALIEFRANKLIN CARMELA Rep #:[id number] : 1965 59 From: Cielo Tovar MD PCP: Josy Elias BEE PRODUCER-C Status:ADM I N Location: ICU CVICU20 1-1 [...] % (Auto) Cancelled, Lymph % (Auto) Cancelled, Kern % (Auto) Cancelled, Eos % (Auto) Cancelled, [...] Drop Cells Cancelled, Ovalocytes Cancelled, Stomatocytes Cancelled, [place] Bodies Cancelled, Paloma Cells Cancelled, Bite Cells [...] 76.1 H, Lymph % (Auto) 8.8 L, Kern % (Auto) 8.2, Eos % (Auto) 5.9 [...] prophylaxis: Heparin Charges/Coding Visit Charges Inpatient E&M: 99324 [facility] Hosp 01/10/25 5341 <Electronically signed by Cielo Tovar MD> Cielo Tovar MD Cosigner Signature (if applicable): CC: ~ Signed [facility] Work Phone: 1(143) 471-790006-09-2025 Progress note Author Bola Kt [facility] Note Date/Time January 10, 2025 8:52a m [facility] Medical Records Department [address] [place] [address] Progress Note - Rn Integrity 01/10/25 0700 MR#: [id number] Acct: [id number] Name: FRANKLIN WIGGINS Rep #:[id number] : [...] scheduled midodrine. This note was generated with [employer] dictation software. It may contain incorrectwords, spelling, [...] 80.6 H, Lymph % (Auto) 7.2 L, Kern % (Auto) 6.7, Eos % (Auto) 4.2, [...] % (Auto) Cancelled, Lymph % (Auto) Cancelled, Kern % (Auto) Cancelled, Eos % (Auto) Cancelled, [...] Drop Cells Cancelled, Ovalocytes Cancelled, Stomatocytes Cancelled, [place] Bodies Cancelled, [place] Cells Cancelled, Bite Cells Cancelled, Crenated Cell [...] 76.1 H, Lymph % (Auto) 8.8 L, Kern % (Auto) 8.2, Eos % (Auto) 5.9 [...] hypertension. No liver masses identified. Reading [facility] Physical Exam [...] flat affect Charges/Coding Visit Charges Inpatient E&M: 30536 Subs Hosp L3 01/10/25 0852 <Electronically signed by Bola Meraz DO> Cosigner Signature (if applicable): CC: ~ Signed [facility] Work Phone: [phone]) [phone] Consult note Author Lupillo Robbins [facility] Note Date/Time January 09, 2025 8:03p m [facility] Medical Records Department [address] [facility] [place] [address] Consultation - Rn Integrity 01/09/25 1836 MR#: [id number] Acct: [id number] Name: FRANKLIN WIGGINS Rep #:[id number] : [...] 12-point ROS negative except as per HPI [facility] Medical History (Updated 01/09/25 @ 17:18 by [...] 40 Mg Tablet PO DAILY [facility] Calcium/Vitamin D 1 tablet 01/10/25 10:00 Calcium Carb/Vitamin D 1 Tablet Tablet PO DAILY [facility] Cyclobenzaprine HCl 10 mg 01/09/25 22:00 Cyclobenzaprine Hcl 10 Mg Tablet PO QHS [facility] Ferrous Sulfate 325 mg 01/10/25 12:00 Ferrous Sulfate 325 Mg Tablet PO Q48@1200 [facility] Folic Acid 1 mg 01/10/25 08:00 Folic Acid 1 Mg Tablet PO BREAKFAST [facility] Guaifenesin 10 ml 01/09/25 15:46 Guaifenesin 10 Ml Udc (200mg/10ml) PO Q4H PRN PRN COUGH Heparin Sodium (Porcine) 5,000 unit 01/09/25 22:00 Heparin Injection (Vial) 5,000 Unit/Ml Vial SC Q8 KRYSTIN Sodium Chloride 250 mls @ 15 mls/hr 01/09/25 15:34 IV .[id number] PRN Saline Flush Sodium Chloride 250 mls @ 15 mls/hr 01/09/25 15:34 IV .[id number] PRN Additional IVPB Infusion Norepinephrine Bitartrate 8 mg 250 mls @ 9.375 mls/hr 01/09/25 15:46 01/09/2515:56 / Sodium Chloride CONT INF Not Given .[id number] [facility] Protocol 5 MCG/MIN Vancomycin IV-PHARMACY TO DOSE 500 mls @ 250 mls/hr 01/09/25 15:46 1 each/ Sodium Chloride IV PRN PRN Rx to Dose Protocol Meropenem 1 gm/ Sodium 120 mls @ 33 mls/hr 01/09/25 22:00 Chloride IV Q12 KRYSTIN Vancomycin HCl 1,000 mg in 200 mls @ 200 mls/hr 01/10/25 02:00 Vancomycin IV Q12H [facility] Insulin Glargine 20 unit 01/09/25 22:00 Insulin Glargine-Yfgn 100 Unit/Ml Pen SC QHS [facility] Insulin Glargine 20 unit 01/10/25 10:00 Insulin Glargine-Yfgn 100 Unit/Ml Pen SC DAILY [facility] Insulin Human Lispro 0 unit 01/09/25 16:00 01/09/25 16:27 Insulin Lispro 100 Unit/Ml Insuln.Pen SC Not Given ACHS [facility] Protocol Lactulose 10 gm 01/09/25 15:46 Lactulose 20 Gm/30 Ml Udc PO TID PRN constipation Magnesium Chloride 128 mg 01/10/25 10:00 Magnesium Chloride 64 Mg Delay Rel.Tablet PO DAILY [facility] Midodrine 10 mg 01/09/25 17:00 01/09/25 17:10 Midodrine Hcl 5 Mg Tablet PO 10 mg TIDCM [facility] Administration Ondansetron HCl 4 mg 01/09/25 15:46 Ondansetron 4 Mg/2 Ml Vial IV Q8H PRN PRN NAUSEA/VOMITING Pantoprazole Sodium 20 mg 01/10/25 10:00 Pantoprazole Sodium 20 Mg Tablet PO DAILY [facility] Potassium Phos/Sodium Phos 1 packet 01/09/25 22:00 Na Biphos/Potassium Phosphate Packet PO BID [facility] Rifaximin 550 mg 01/09/25 22:00 Rifaximin 550 Mg Tablet PO BID [facility] Sodium Bicarbonate 650 mg 01/09/25 22:00 Sodium Bicarbonate 650 Mg Tablet PO BID [facility] Sodium Chloride 10 - 40 ml 01/09/25 15:34 0.9% Saline Lock 10 Ml Syringe IV UD PRN SALINE FLUSH Thiamine HCl 100 mg 01/10/25 10:00 Thiamine Hydrochloride 100 Mg Tablet PO DAILY [facility] Vancomycin Protocol 1 lab 01/11/25 00:30 Vancomycin Trough/Random Due MC 01/11/25 02:30 DAILY [facility] Zinc Sulfate 50 mg 01/10/25 10:00 Zinc Sulfate 50 Mg Zinc (220 Mg) Oral Capsule PO DAILY [facility] Lab / Micro Data 01/09/25 10:40 [...] 80.6 H, Lymph % (Auto) 7.2 L, Kern % (Auto) 6.7, Eos % (Auto) 4.2, [...] hypertension. No liver masses identified. Reading [facility] Assessment and Plan . Assessment [...] Robbins MD> Cosigner Signature (if applicable): CC: BEE PRODUCER-C Josy Elias~ Signed [facility] Work Phone: 1(188) 155-446006-08-2025 Consult note Author Peter Carvajal [facility] Note Date/Time January 09, 2025 5:42p [facility] Medical Records Department [address] [place] [address] Pharmacokinetic/Renal -Consult 01/09/25 1602 MR#: [id number] Acct: [id number] Name: FRANKLIN WIGGINS CARMELA Rep #:[id number] [...] Date Yaritza Leo DO CC: ~ Signed [facility] Work Phone: 1(293) 763-748506-08-2025 History and physical note Author Yaritza Leo [facility] Note Date/Time January 09, 2025 5:41p m [facility] Medical Records Department [address] [place] [address] H&P Exam - Hospitalist 01/09/25 1408 MR#: [id number] Acct: [id number] Name: FRANKLIN WIGGINS Rep #:[id number] : 1965 59 From: Yaritza Leo DO PCP: YG Pena Status:ADM I N Location: ICU CVICU20 1- HPI - General General Date of Admission: 01/09/25 Date of Service: 01/09/25 Chief Complaint: Suprapubic abdominal pain HPI Narrative FRANKLIN WIGGINS, is a 59 M who presented to the emergency department [facility] on 01/09/2025 due to back pain [...] medical history and currently resides at an [facility]. He denies any fever or chills. [...] a repeat of 89/59 and pulse ox wtx302% on room air. CBC showed a leukocytosis [...] he was treated with 30 cc/kg bolus. [facility] Medical History (Updated 01/09/25 @ 17:18 by [...] 80.6 H, Lymph % (Auto) 7.2 L, Kern % (Auto) 6.7, Eos % (Auto) 4.2, [...] hypertension. No liver masses identified. Reading [facility] Assessment & Plan Assessment/Plan (1) [...] currently 102/60) Charges/Coding Visit Charges Inpatient E&M: 98854 Init Hosp L3 01/09/25 1741 <Electronically signed by Yaritza Leo DO> Cosigner Signature (if applicable): CC: BEE PRODUCER-Pastora Elias; Dr. Yaritza Leo DO~ Signed [facility] Work Phone: 1(288) 446-633406-08-2025 Discharge summary Author Breann [facility] Note Date/Time January 09, 2025 4:26p m [facility] Medical Records Department [address] [place] [address] Emergency Department Summary 01/09/25 MR#: [id number] Acct: [id number] Name: FRANKLIN WIGGINS Rep #:[id number] : [...] denies urinary symptoms. Patient is from [place] and normally ambulates with a walker. Patient has history of cirrhosis and history of diabetes as well as high cholesterol. Patient has had prior paracentesis. Currently rates his pain about a 5 out of 10. He does not want thing for pain currently. [facility] Medical History Weakness Diarrhea Sepsis Acidosis, lactic [...] 80.6 H Lymph % (Auto) 7.2 L Kern % (Auto) 6.7 Eos % (Auto) 4.2 [...] Clarity Turbid Urine pH 6.0 Ur Specific Vendor 1.015 Urine Protein 500 H Urine Glucose [...] hypertension. No liver masses identified. Reading Location: [facility] Critical Care Time Critical care time (excluding procedures): 30-74 minutes, Including time spent:,Discussing w/Patient &/or Family/Yard Associate, Discussing w/Consultants, ArrangingAdmission or Transfer, Performing Direct Patient Care at Bedside and - (30 minutes) Discharge Plan Triage Chief Complaint: Abd Pain ED Provider: Breann Mendze Dx/Rx/DC Orders Clinical Impression: Sepsis, Acute UTI, [...] NP-C [Primary Care Provider] - Print Language: Sudanese Disposition Disposition: Acute Care Hospital [facility] What to do if you have Problems For any increased pain, shortness of breath, bleeding, nausea or vomiting, chestpain, or any unexpected problems, contact your Primary Care Provider. Call [facility] ([phone]) or report to the closest Emergency Room. Call 911 if necessary. 01/09/25 1626 <Electronically signed by Breann Mendez DO> Cosigner Signature (if applicable): CC: YG Elias ~ Signed [facility] Work Phone: 1(516) 763-976806-08-2025 Radiology Diagnostic study [facility]06-04-2025 Consult note Author Kourtney Reece [facility] Note Date/Time January 05, 2025 5:01p [facility] Medical Records Department [address] [place] [address] Counseling Note - Pharmacy 01/05/25 1447 MR#: [id number] Acct: [id number] Name: FRANKLIN WIGGINS Rep #:[id number] : 1965 59 From: Kourtney Reece PCP: YG Pena Status:ADM I N Y Location: [place] [address] Pharmacy [place] Med Reconciliation Pharmacy Service has performed discharge [...] solution (Constulose) 15 ml PO TID PRN lxpcruewzhil93/27/25 L.acidophil,salivari-Bifido bifidum-Strep thermoph 175 mg capsule 1 [...] Protocol subcut ACHS #0 mL 01/05/25 01/05/25 6227 <Electronically signed by Kourtney Reece> Date _ Kourtney Ferguson Signature (if applicable): Date CC: ~ Signed [facility] Work Phone: 1(144) 415-163206-04-2025 Discharge summary Author Hill Acuña [facility] Note Date/Time January 05, 2025 2:07p m [facility] Medical Records Department [address] [place] [address] Discharge Summary 01/05/25 1404 MR#: [id number] Acct: [id number] Name: FRANKLIN WIGGINS Rep #:[id number] : 1965 59 From: Hill Acuña MD PCP: YG Pena Status:ADM I N Location: [place] [address] Providers Date of Admission: 01/02/25 Date of [...] Secondary to multiple medical comorbidities. Transfer to snf facility had been recommended to patient during previous hospitalization he did decline. I had a discussion with patient he is amenable to entertaining the idea of going to snf facility. Subsequently requested for PT OT eval and social director to assist with discharge planning ? 01/03/2025; plan is to discuss with case management regarding disposition ? 01/05/2025; awaiting insurance pre-CERT prior to transfer to snf facility ? Patient was discharged to snf facility once insurance. 2. Severe hypokalemia ? [...] solution (Constulose) 15 ml PO TID PRN wlobkpsizfcp08/27/25 L.acidophil,salivari-Bifido bifidum-Strep thermoph 175 mg capsule 1 [...] (Auto) 69.1, Lymph % (Auto) 13.4 L, Kern % (Auto) 11.6 H, Eos % (Auto) [...] Home Facility Charges/Coding Visit Charges Inpatient E&M: 47910 Disch Hosp >30min 01/05/25 1407 <Electronically signed by Hill Acuña MD> Cosigner Signature (if applicable): CC: YG Elias; Dr. Hill Acuña MD~ Signed [facility] Work Phone: 1(911) 567-472206-04-2025 Discharge summary Author [facility] Note Date/Time January 05, 2025 2:04p [facility] Medical Records Department [address] [place] [address] Transfer to [facility] MR#: [id number] Acct: [id number] Name: FRANKLIN WIGGINS Rep #:[id number] : 1965 59 From: Hill Acuña MD PCP: YG Pena Status:ADM I N Certification of patient admission REQUIRED AT TIME OF ADMISSION. I CERTIFY THAT POST-HOSPITAL F SERVICES ARE REQUIRED TO BE GIVEN ON AN IN-PATIENT BASIS BECAUSE OF THE ABOVE NAMED PATIENT'S NEED FOR SHELTER CARE ON A CONTINUING BASIS FOR THE CONDITION(S) FOR WHICH HE/SHE WAS RECEIVING IN-PATIENT HOSPITAL SERVICES PRIOR TO HIS/HER TRANSFER TO THE [facility]. 01/05/25 1404<Electronically signed by Hill Acuña [...] Secondary to multiple medical comorbidities. Transfer to snf facility had been recommended to patient during previous hospitalization he did decline. I had a discussion with patient he is amenable to entertaining the idea of going to snf facility. Subsequently requested for PT OT eval and social director to assist with discharge planning ? 01/03/2025; plan is to discuss with case management regarding disposition ? 01/05/2025; awaiting insurance pre-CERT prior to transfer to snf facility 2. Severe hypokalemia ? Patient potassium [...] YG Elias; Dr. Buster Fuchs MD ~ [facility] Work Phone: 1([phone]) 395-945106-04-2025 Progress note Author Hill Acuña [facility] Note Date/Time January 05, 2025 11:01 am [facility] Medical Records Department [address] [place] [address] Progress Note - Hospitalist 01/05/25 0737 MR#: [id number] Acct: [id number] Name: FRANKLIN WIGGINS Rep #:[id number] : 1965 59 From: Hill Acuña MD PCP: YG Pena Status:ADM I N Location: [place] [address] Reason for Visit Reason for Visit: Diagnoses Acute kidney failure, unspecified (01/02/25) Unspecified fall, initial encounter (01/02/25) Subjective Subjective Patient seen blood glucose control not optimal further adjustment made to patient insulin regimen. Patient awaiting insurance precertification prior to [facility] Objective Data Objective Data Vital Signs: [...] (Auto) 69.1, Lymph % (Auto) 13.4 L, Kern % (Auto) 11.6 H, Eos % (Auto) [...] Secondary to multiple medical comorbidities. Transfer to snf facility had been recommended to patient during previous hospitalization he did decline. I had a discussion with patient he is amenable to entertaining the idea of going to snf facility. Subsequently requested for PT OT eval and social director to assist with discharge planning ? 01/03/2025; plan is to discuss with case management regarding disposition ? 01/05/2025; awaiting insurance pre-CERT prior to transfer to snf facility 2. Severe hypokalemia ? Patient potassium [...] SCDs for Charges/Coding Visit Charges Inpatient E&M: 71420 Subs Hosp L2 01/05/25 1101 <Electronically signed by Hill Acuña MD> Cosigner Signature (if applicable): CC: ~ Signed [facility] Work Phone: 1(845) 554-724106-03-2025 Progress note Author Hill Acuña [facility] Note Date/Time January 04, 2025 10:18 am [facility] Medical Records Department [address] [place] [address] Progress Note - Hospitalist 01/04/25 1014 MR#: [id number] Acct: [id number] Name: FRANKLIN WIGGINS Rep #:[id number] : 1965 59 From: Hill Acuña MD PCP: Josy Elias BEE PRODUCER-Pastora Status:ADM I N Location: [place] [address] Reason for Visit Reason for Visit: Diagnoses [...] Secondary to multiple medical comorbidities. Transfer to snf facility had been recommended to patient during previous hospitalization he did decline. I had a discussion with patient he is amenable to entertaining the idea of going to snf facility. Subsequently requested for PT OT eval [...] SCDs for Charges/Coding Visit Charges Inpatient E&M: 07862 Subs Hosp L2 01/04/25 1018 <Electronically signed by Hill Acuña MD> Cosigner Signature (if applicable): CC: ~ Signed [facility] Work Phone: 1(683) 143-319806-02-2025 Progress note [facility] Note Date/Time January 03, 2025 9:52a [facility] Medical Records Department [address] [place] [address] Progress Note - Hospitalist 01/03/25 0839 MR#: [id number] Acct: [id number] Name: FRANKLIN WIGGINS Rep #:[id number] : 1965 59 From: Hill Acuña MD PCP: YG Pena Status:ADM I N Location: [place] [address] Reason for Visit Reason for Visit: Diagnoses [...] (Auto) 67.5, Lymph % (Auto) 13.9 L, Kern % (Auto) 11.5 H, Eos % (Auto) [...] Secondary to multiple medical comorbidities. Transfer to snf facility had been recommended to patient during previous hospitalization he did decline. I had a discussion with patient he is amenable to entertaining the idea of going to snf facility. Subsequently requested for PT OT eval [...] SCDs for Charges/Coding Visit Charges Inpatient E&M: 35099 Subs Hosp L2 01/03/25 0952 <Electronically signed by Hill Acuña MD> Cosigner Signature (if applicable): CC: ~ Signed [facility] Work Phone: 1(475) 394-681006-01-2025 Progress note Author Hill Acuña [facility] Note Date/Time January 02, 2025 9:58a m [facility] Medical Records Department [address] [place] [address] Progress Note - Hospitalist 01/02/25 0736 MR#: [id number] Acct: [id number] Name: FRANKLIN WIGGINS Rep #:[id number] : 1965 59 From: Hill Acuña MD PCP: YG Pena Status:ADM I N Location: [place] [address] Reason for Visit Reason for Visit: Diagnoses Acute kidney failure, unspecified (01/02/25) Unspecified fall, initial encounter (01/02/25) Subjective Subjective Patient is a 59-year-old gentleman with recent multiple hospitalization presented to the emergency department with progressive generalized weakness and vomiting. This was apparently his third visit to the ED within a week. Patienthad been encouraged to be discharged to a snf facility he however declined. Objective Data Objective [...] (Auto) 68.0, Lymph % (Auto) 12.2 L, Kern % (Auto) 11.9 H, Eos % (Auto) [...] insufficiency fracture again noted, unchanged. Reading Location: [facility] Brain CT 01/02/25 03:55 IMPRESSION: No intracranial [...] Secondary to multiple medical comorbidities. Transfer to snf facility had been recommended to patient during previous hospitalization he did decline. I had a discussion with patient he is amenable to entertaining the idea of going to snf facility. Subsequently requested for PT OT eval [...] documentation, 38Minutes Charges/Coding Visit Charges Inpatient E&M: 26520 PROLNG IP/OBS E/M EA 15 MIN Multi Select Codes Visit Charges Visit Charges: 99562 PROLNG IP/OBS E/M EA 15 MIN 01/02/25 0958 <Electronically signed by Hill Acuña MD> Cosigner Signature (if applicable): CC: ~ Signed [facility] Work Phone: 1(547) 731-317106-01-2025 History and physical note Author Buster Fuchs [facility] Note Date/Time January 02, 2025 6:44a m [facility] Medical Records Department [address] [place] [address] H&P Exam - Hospitalist 01/02/25 0556 MR#: [id number] Acct: [id number] Name: FRANKLIN WIGGINS Rep #:[id number] : 1965 59 From: Buster duarte MD PCP: YG Pena Status:ADM I N Location: [place] [address] HPI - General General Date of Admission: 01/02/25 HPI Narrative FRANKLIN WIGIGNS, is a 59 M who presents to the hospital with weakness and a fall. He did not hit his head or lose consciousness. He has had an extensive recent medical history with cirrhosis and UTI with staghorn calculus, he was in the ICUin October. 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 Was not considered to be a liver transplant candidate and was placed on anticoagulation. He has had a couple of readmissions for weakness and debility. [place] to possibly have aUTI given a staghorn [...] Heis receiving potassium infusion in the ER. [facility] Medical History Weakness Diarrhea Sepsis Acidosis, lactic [...] (Auto) 68.0, Lymph % (Auto) 12.2 L, Kern % (Auto) 11.9 H, Eos % (Auto) [...] once verified Charges/Coding Visit Charges Inpatient E&M: 13565 Init Hosp L2 01/02/25 0644 <Electronically signed by Buster Fuchs MD> Cosigner Signature (if applicable): CC: YG Elias; Dr. Buster Fuchs MD~ Signed [facility] Work Phone: 1(318) 445-125006-01-2025 Evaluation note* Diagnosis Onset Date Resolution Status [...] Hepatic encephalopathy acute Se ptember 2024 11:18pm [facility] Work Phone: 1([phone]) [phone] Evaluation note* Diagnosis Onset Date Resolution Status [...] Hepatic encephalopathy acute Se ptember 2024 9:24pm [facility] Work Phone: 1(343) 859-664006-01-2025 Discharge summary Author Roddy Reeves [facility] Note Date/Time January 02, 2025 6:00a m [facility] Medical Records Department [address] [place] [address] Emergency Department Summary 01/02/25 MR#: [id number] Acct: [id number] Name: FRANKLIN WIGGINS Rep #:[id number] : 1965 59 From: Roddy Reeves DO PCP: Josy Elias BEE PRODUCER-C Status:REG E R Location: ED HPI History [...] was here recently and was sent home. [facility] Medical History Weakness Diarrhea Sepsis Acidosis, lactic [...] mg tablet (Xifaxan) 550 mg PO BID [facility] ea #60 tabs 09/02/24 11/28/24 Rx [...] Patient following commands that he was at [facility] that wewere in [...] (Auto) 68.0 Lymph % (Auto) 12.2 L Kern % (Auto) 11.9 H Eos % (Auto) [...] Clarity Turbid Urine pH 6.0 Ur Specific Vendor 1.015 Urine Protein 100 H Urine Glucose [...] NP-C [Primary Care Provider] - Print Language: Sudanese Disposition Disposition: Acute Care Hospital [facility] What to do if you have Problems For any increased pain, shortness of breath, bleeding, nausea or vomiting, chestpain, or any unexpected problems, contact your Primary Care Provider. Call [facility] ([phone]) or report to the closest Emergency Room. Call 911 if necessary. 01/02/25 0600 <Electronically signed by Roddy Reeves DO> Cosigner Signature (if applicable): CC: YG Elias ~ Signed [facility] Work Phone: 1(320) [phone] Radiology Diagnostic study [facility]06-01-2025 Radiology Diagnostic study [facility]06-01-2025 Radiology Diagnostic study [facility] 12-30-2024 Radiology Diagnostic study [facility]05-25-2025 Radiology Diagnostic study [facility]05-14-2025 Radiology Diagnostic study [facility]04-20-2025 Radiology Diagnostic study [facility]04-17-2025 Telephone encounter Note* Telephone Encounter - [...] will be scheduled to follow up with [facility] Public Improvement Inspector. JEANNINE asked that Dr. Mosley inform this pt that he can return to our transplant center again and be re-evaluated once he has addressed his prohibitive psychosocial concerns (lack of caregivers, unstable housing, unstable finances, unreliable transportation). Dr. Mosley agreed to do so. [facility] Work Phone: [phone]) 575-334804-17-2025 Miscellaneous Notes* Telephone Encounter - Marah Arauz [...] will be scheduled to follow up with [facility] Public Improvement Inspector. JEANNINE asked that Dr. Mosley inform this pt that he can return to our transplant center again and be re-evaluated once he has addressed his prohibitive psychosocial concerns (lack of caregivers, unstable housing, unstable finances, unreliable transportation). Dr. Mosley agreed to do so. documented in this encounterToledo [facility]04-17-2025 Telephone encounter Note * Telephone Encounter [...] transportation. . Jeremi Abreu RN, BSN Liver Orthodontist [facility] Work Phone: [phone]) [phone] Miscellaneous Notes* Telephone Encounter - Jeremi Abreu [...] transportation. . Jeremi Abreu RN, BSN Liver Orthodontist documented in this encounterToledo Hospital04-17-2025 [facility]-17-2025 NoteSum[facility]04-16-2025 NoteSum[facility]04-16-2025 NoteSum[facility]04-16-2025 Note [facility]04-15-2025 NoteSum[facility]04-15-2025 NoteSum[facility]04-15-2025 NoteSum[facility] 11-15-2024 NoteSum[facility]04-14-2025 NoteSum[facility]04-14-2025 NoteSum[facility]04-14-2025 History of Present illness Narrative* [...] 15, 2024 2:35 PM documented in this encounterToledo Hospital04-14-2025 NoteSumma [facility]04-14-2025 History of Present illness Narrative* Virgil Farley DDS - 11/15/2024 1:48 PM EDTSummary: Liver Transplant Dental Bedside Clearance See inpatient note for this encounter on 11/15/2024. Virgil Farley DDS documented in this encounterToledo Hospital04-14-2025 NoteSumma [facility]04-13-2025 NoteSum[facility]04-12-2025 NoteSum[facility]04-11-2025 History of Present illness Narrative* [...] mg capsule(s) rifAXIMin 550 mg tab(s) (XIFAXAN) wstcwig-dnnnmiehq-aixegjs D3 500 mg-5 mcg (200 unit) 1 [...] Guzman, PharmJazmine [facility] Pharm[facility] Clinical Specialist Pager: [phone] documented in this encounterToledo Hospital04-11-2025 NoteSumma [facility]04-11-2025 NoteSumma Health [facility]04-11-2025 History of Present illness Narrative* Jeremi Abreu RN - 11/12/2024 2:52 PM EDT The following information has been provided/discussed with the patient/family during Shared MedicalAppointment education class: Informed Consent for Organ Transplant Program Participation version February 20, 2023. SRTR information provided and questions answered. Informed patient to call title coordinator with any questions. UNOS information regarding multiple listings for organ transplantation Evaluation process including presentation to selection committee and listing criteria Surgical procedure, including post-operative management, hospitalization, immunosuppressive medications and their side effects (including the risk for hypertension, diabetes, kidney problems and cancers) and correction follow up after transplant. Possibility of recurrent [...] also addressed Patient was provided with [facility] information sheet regarding transplantation of HepatitisC [...] LIMITATIONS AFFECTING LEARNING: None LEARNING RESPONSE DIAGNOSIS: [facility] METHOD OF INSTRUCTION: Verbal instruction Video PATIENT / FAMILY RESPONSE: Information received as demonstrated by interest and questions FOLLOW-UP PLAN: Contact information given. SUPPLEMENTAL MATERIAL: None REFERRAL (RECOMMENDATION): None Electronically Signed By: Jeremi Abreu RN In Department: TRANSPLANT CENTER documented in this encounterToledo Hospital04-11-2025 NoteSumma Health [facility]04-11-2025 History of Present illness Narrative* [...] 12, 2024 1:16 PM documented in this encounterToledo Hospital04-11-2025 Miscellaneous Notes* Telephone Encounter - Jeremi Abreu RN - 11/12/2024 12:08 PM EDT INFORMED CONSENT Franklin Wiggins Medical Record: [id number] Informed consent for Organ Transplant Program Participation [...] questions answered. Jeremi Abreu RN, BSN Liver Orthodontist documented in this encounterToledo Hospital04-11-2025 Telephone encounter Note * Telephone Encounter - Jeremi Abreu RN - 11/12/2024 12:08 PM EDT INFORMED CONSENT Franklin Wiggins Medical Record: [id number] Informed consent for Organ Transplant Program Participation [...] questions answered. Jeremi Abreu RN, BSN Liver Orthodontist [facility] Work Phone: 1(258) 559-702604-11-2025 NoteSumma Health W[facility]04-11-2025 NoteHNO ID: [id number] Author: KIRTI VELÁSQUEZ RN Service: Nursing Author Type: Registered Nurse Type: Nursing Progress Note Filed: 11/12/2024 00:58 Note Text: Other: PTTAC-no clot detected at 320-heparin gtt stopped-need futher orders-electrical installation supervisor notifiedSumma Health Wad[facility]04-10-2025 NoteSumma Health [facility] 11-11-2024 NoteSumma Health [facility]04-10-2025 NoteSumma Health [facility]04-09-2025 Discharge summary Author Kathie Powers [facility] Note Date/Time November 10, 2024 8:42 pm [facility] Medical Records Department [address] [place] [address] Discharge Summary 11/10/241936 MR#: [id number] Acct: [id number] Name: FRANKLIN WIGGINS Rep #:[id number] : 1965 59 From: Kathie Powers MD PCP: Care Physician,No Primary Status :ADM [facility] Date of Admission: 10/29/24 Date of Discharge: 11/10/24 Primary Care Physician: No Primary Care Phys Consultations 10/29/24 01:15 Consult: Urology Routine Consulting Provider: Foster Rascon Reason for Consult: Sepsis with UTI and Staghorn Calculus. EMERGENT Consult: No MD Notified: Yes Date Notified: 10/29/24 Time Notified: 08:07 Method of Notification: Verbal 10/29/24 01:47 Consult: Rn Integrity / Pulmonary Medicine Routine Consulting Provider: Intensivists/Pulmonary Med Reason for Consult: Sepsis, UTI, Diarrhea, Abdominal Pain and Back Pain. EMERGENT Consult: No MD Notified: Yes Date Notified: 10/29/24 Time Notified: 04:58 Method of Notification: Text 10/30/24 03:54 Consult: Gastroenterology Routine Consulting Provider: [facility] Reason for Consult: BOYER, elevated ammonia EMERGENT Consult: No MD Notified: Yes Date Notified: 10/30/24 Time Notified: 07:31 Method of Notification: Text 11/09/24 21:26 Consult: Gastroenterology Routine Consulting Provider: [facility] Reason for Consult: cirrhosis,ascites,splenic thrombosis, low [...] diabetes, staghorn colliculi, cirrhosis who presented to [facility] ED 10/29/2024 with sepsis and was [...] was in agreement. Reach out to [facility] and ultimately patient was accepted by the leather goods i assembler Dr. Neal. Patient with bed assignment 11/10, patient to be transferred to [facility] Physical Exam Narrative General: Sleeping but [...] 83.0 H, Lymph % (Auto) 6.6 L, Kern % (Auto) 6.9, Eos % (Auto) 1.9, [...] Clarity Turbid, Urine pH 6.5, Ur Specific Vendor 1.015, Urine Protein 500 H, Urine Glucose [...] Garza; Zachariah Glover; Scott Weston; Yue Delgadillo BEE PRODUCER Discharge Orders/Prescriptions Prescriptions: No Action lidocaine 5 [...] or pain) [facility] - [facility] 1 Week Care Physician,No Primary [Primary Care Provider] - Disposition Disposition (needs filled in before D/C Order can be placed): Acute Care Hospital Charges/Coding Visit Charges Inpatient E&M: 98644 Disch Hosp >30min 11/10/242041 <Electronically signed by Kathie Powers MD> Cosigner Signature (if applicable): CC: Dr. Kathie Powers MD; No Primary Care Physician~ Signed [facility] Work Phone: [phone]) [phone] Discharge summary Author Kathie Powers [facility] Note Date/Time November 10, 2024 7:37 pm [facility] Medical Records Department [address] [place] [address] Instructions for Home/Discharge Instructions 11/10/241935 MR#: [id number] Acct: [id number] Name: FRANKLIN WIGGINS Rep #:[id number] : [...] Garza; Zachariah Glover; Scott Weston; Yue Delgadillo BEE PRODUCER Discharge Orders/Prescriptions Prescriptions: No Action lidocaine 5 [...] fever or pain) [facility] - In 1 Week Care Physician,No Primary [Primary Care Provider] - Disposition Disposition (needs filled in before D/C Order can be placed): [facility] 11/10/241936<Electronically signed by Kathie Powers MD>Kathie Powers MD CC: BEE PRODUCER-Pastora Delgadillo; Dr. Hill Herrmann MD; Dr. Hill Acuña MD; Dr. Hill Caro DO; Dr. Thiago Wray MD; Dr. Blair Cage MD; Dr. Foster Gresham MD; Dr. Gabbi Hughes MD; Dr. Buster Fuchs MD; Dr. Thai Godfrey MD; Dr. Zachariah Glover MD; Dr. Juan Daniel Garza MD; Dr. Scott Weston DO; No Primary Care Physician ~ Signed [facility] Work Phone: 1([phone]) 360-205104-09-2025 Consult note Author Foster Rascon [facility] Note Date/Time November 10, 2024 8:59 am [facility] Medical Records Department [address] [place] [address] Consultation 11/10/24 0857 MR#: [id number] Acct: [id number] Name: FRANKLIN WIGGINS Rep #:[id number] : 1965 59 From: Foster Rascon MD PCP: Care Physician,No Primary Status :ADM IN Location: [place] [address] Consult Date of Consult: 11/10/24 59-year-old male [...] applicable): CC: No Primary Care Physician~ Signed [facility] Work Phone: 1([phone]) 966-750004-08-2025 Progress note Author Kathie Powers [facility] Note Date/Time November 09, 2024 9:26 pm [facility] Medical Records Department [address] [place] [address] Progress Note - Hospitalist 11/09/242120 MR#: [id number] Acct: [id number] Name: FRANKLIN WIGGINS Rep #:[id number] : 1965 59 From: Kathie Powers MD PCP: Care Physician,No Primary Status :ADM IN Location: [place] [address] scan w/ ascites and [...] Cosigner Signature (if applicable): CC: ~ Signed [facility] Work Phone: 1(237) 925-804504-08-2025 Progress note Author Kathie Powers [facility] Note Date/Time November 09, 2024 6:54 pm [facility] Medical Records Department [address] [place] [address] Progress Note - Hospitalist 11/09/24 1850 MR#: [id number] Acct: [id number] Name: FRANKLIN WIGGINS Rep #:[id number] : 1965 59 From: Kathie Powers MD PCP: Care Physician,No Primary Status :ADM IN Location: [place] [address] Reason for Visit Reason for Visit: Diagnoses [...] 79.1 H, Lymph % (Auto) 8.2 L, Kern % (Auto) 8.1, Eos % (Auto) 3.0, [...] with interval NG tube removal. Reading Location: [facility] Rhythm Strip Rhythm Strip: Sinus [...] 42 Minutes Charges/Coding Visit Charges Inpatient E&M: 07490 Subs Hosp L2 11/09/24 0598 <Electronically signed by Kathie Powers MD> Cosigner Signature (if applicable): CC: ~ Signed [facility] Work Phone: 1(659) 652-126904-08-2025 Radiology Diagnostic study [facility]04-08-2025 Radiology Diagnostic study [facility]04-07-2025 Progress note Author Kathie Powers [facility] Note Date/Time November 08, 2024 6:26 pm [facility] Medical Records Department [address] [place] [address] Progress Note - Hospitalist 11/08/24 1441 MR#: [id number] Acct: [id number] Name: FRANKLIN WIGGINS Rep #:[id number] : 1965 59 From: Kathie Powers MD PCP: Care Physician,No Primary Status :ADM IN Location: [place] [address] Reason for Visit Reason for Visit: Diagnoses [...] 56 Minutes Charges/Coding Visit Charges Inpatient E&M: 66186 Subs Hosp L3 11/08/24 1503 <Electronically signed [...] Cosigner Signature (if applicable): cc: ~* Signed [facility] Work Phone: 1(550) 332-613004-06-2025 Progress note Author Hill Acuña [facility] Note Date/Time November 07, 2024 10:3 8am [facility] Medical Records Department [address] [place] [address] Progress Note - Hospitalist 11/07/24912 MR#: [id number] Acct: [id number] Name: FRANKLIN WIGGINS Rep #:[id number] : 1965 59 From: Hill Acuña MD PCP: Care Physician,No Primary Status :ADM IN Location: [place] [address] Reason for Visit Reason for Visit: Diagnoses [...] 81.5 H, Lymph % (Auto) 6.9 L, Kern % (Auto) 6.9, Eos % (Auto) 2.3, [...] [facility] Time spent in the patient's overall evaluation,decision-making process, review of diagnostic data, adjustment of management, discussion with other providers, nursing nursing and ancillary staff involved in patient's care documentation, 36 Minutes Charges/Coding Visit Charges Inpatient E&M: 29094 Subs Hosp L2 11/07/24 1038 <Electronically signed by Hill Acuña MD> Cosigner Signature (if applicable): CC: ~ Signed [facility] Work Phone: 1(715) 258-247604-05-2025 Progress note Author Hill Acuña [facility] Note Date/Time November 06, 2024 10:5 7am [facility] Medical Records Department [address] [place] [address] Progress Note - Hospitalist 11/06/24 0756 MR#: [id number] Acct: [id number] Name: FRANKLIN WIGGINS Rep #:[id number] : 1965 59 From: Hill Acuña MD PCP: Care Physician,No Primary Status :ADM IN Location: [place] [id number]- 1 Reason for Visit Reason for Visit: [...] given a [facility] Time spent in the patient's overall evaluation,decision-making process, review of diagnostic data, adjustment of management, discussion with other providers, nursing nursing and ancillary staff involved in patient's care documentation, 36 Minutes Charges/Coding Visit Charges Inpatient E&M: 50037 Subs Hosp L2 11/06/24 1057 <Electronically signed by Hill Acuña MD> Cosigner Signature (if applicable): CC: ~ Signed [facility] Work Phone: 1(396) 236-855904-04-2025 Progress note Author Hill [facility] Note Date/Time November 05, 2024 9:26 am [facility] Medical Records Department [address] [place] [address] Progress Note - Hospitalist 11/05/24 0924 MR#: [id number] Acct: [id number] Name: FRANKLIN WIGGINS Rep #:[id number] : 1965 59 From: Hill Acuña MD PCP: Care Physician,No Primary Status :ADM IN Location: [place] [address] Reason for Visit Reason for Visit: Diagnoses [...] 81.0 H, Lymph % (Auto) 6.7 L, Kern % (Auto) 7.1, Eos % (Auto) 2.3, [...] given a [facility] Time spent in the patient's overall evaluation,decision-making process, review of diagnostic data, adjustment of management, discussion with other providers, nursing nursing and ancillary staff involved in patient's care documentation, 38 Minutes Charges/Coding Visit Charges Inpatient E&M: 28617 Subs Hosp L2 11/05/24 0926 <Electronically signed by Hill Acuña MD> Cosigner Signature (if applicable): CC: ~ Signed [facility] Work Phone: 1(256) 827-303704-03-2025 Progress note Author [facility] Note Date/Time November 04, 2024 11:5 0am [facility] Medical Records Department [address] [place] [address] Progress Note - Hospitalist 11/04/24 1105 MR#: [id number] Acct: [id number] Name: FRANKLIN WIGGINS Rep #:[id number] : 1965 59 From: Hill Acuña MD PCP: Care Physician,No Primary Status :ADM IN Location: [place] [address] Reason for Visit Reason for Visit: Diagnoses [...] 83.6 H, Lymph % (Auto) 4.9 L, Kern % (Auto) 5.9, Eos % (Auto) 1.1, [...] 38 Minutes Charges/Coding Visit Charges Inpatient E&M: 62331 Subs Hosp L2 11/04/24 1150 <Electronically signed by Hill Acuña MD> Cosigner Signature (if applicable): CC: ~ Signed [facility] Work Phone: 1(536) 129-462304-03-2025 Progress note Author [facility] Note Date/Time November 04, 2024 6:43 am [facility] Medical Records Department [address] [place] [address] Progress Note - Hospitalist 11/04/24 0642 MR#: [id number] Acct: [id number] Name: FRANKLIN WIGGINS Rep #:[id number] : 1965 59 From: Maria Guadalupe Shore MD PCP: Care Physician,No Primary Status :ADM IN Location: [place] [address] Hospitalist Note Patient with 15 beat asymptomatic VT. Electrolytes recently checked, mag normal range, K normal range. 11/04/24 0643 <Electronically signed by Maria Guadalupe Shore MD> Cosigner Signature (if applicable): CC: ~ Signed [facility] Work Phone: 1(356) 558-690504-03-2025 Progress note Author [facility] Note Date/Time November 03, 2024 10:3 8pm [facility] Medical Records Department [address] [place] [address] Progress Note - Hospitalist 11/03/242236 MR#: [id number] Acct: [id number] Name: FRANKLIN WIGGINS Rep #:[id number] : 1965 59 From: Maria Guadalupe Shore MD PCP: Care Physician,No Primary Status :ADM IN Location: [place] [address] Hospitalist Note Patient with mildly tachycardia through the late afternoon and evening. Will administer 500 cc bolus and reassess. From review of medications not normally onBB therapy. 11/03/242237 <Electronically signed by Maria Guadalupe Shore MD> Cosigner Signature (if applicable): CC: ~ Signed [facility] Work Phone: 1(233) 530-659304-02-2025 Progress note Author Hill Acuña [facility] Note Date/Time November 03, 2024 10:2 7am [facility] Medical Records Department [address] [place] [address] Progress Note - Hospitalist 11/03/24 1025 MR#: [id number] Acct: [id number] Name: FRANKLIN WIGGINS Rep #:[id number] : 1965 59 From: Hill Acuña MD PCP: Care Physician,No Primary Status :ADM IN Location: [place] [address] Reason for Visit Reason for Visit: Diagnoses [...] 38 Minutes Charges/Coding Visit Charges Inpatient E&M: 22524 Subs Hosp L2 11/03/24 1027 <Electronically signed by Hill Acuña MD> Cosigner Signature (if applicable): CC: ~ Signed [facility] Work Phone: 1(321) 504-616504-01-2025 Progress note Author Hill Acuña [facility] Note Date/Time November 02, 2024 10:0 5am [facility] Medical Records Department [address] [facility] [place] [address] Progress Note - Hospitalist 11/02/24 0804 MR#: [id number] Acct: [id number] Name: FRANKLIN WIGGINS Rep #:[id number] : 1965 59 From: Hill Acuña MD PCP: Care Physician,No Primary Status :ADM IN Location: [place] [address] Reason for Visit Reason for Visit: Diagnoses [...] 50 Minutes Charges/Coding Visit Charges Inpatient E&M: 60200 Subs Hosp 11/02/24 1005 <Electronically signed by Hill Acuña MD> Cosigner Signature (if applicable): CC: ~ Signed [facility] Work Phone: 1(793) 547-950403-31-2025 Progress note Author Hill Acuña [facility] Note Date/Time November 01, 2024 11: 41am [facility] Medical Records Department [address] [place] [address] Progress Note - Hospitalist 11/01/24 1128 MR#: [id number] Acct: [id number] Name: FRANKLIN WIGGINS Rep #:[id number] : 1965 59 From: Hill Acuña MD PCP: Care Physician,No Primary Status :ADM IN Location: [place] [address] Reason for Visit Reason for Visit: Diagnoses [...] 50 Minutes Charges/Coding Visit Charges Inpatient E&M: 80971 Subs Hosp 11/01/24 1141 <Electronically signed by Hill Acuña MD> Cosigner Signature (if applicable): CC: ~ Signed [facility] Work Phone: [phone] Progress note Author Niranjan Friend [facility] Note Date/Time November 01, 2024 8:4 4am [facility] Medical Records Department [address] [place] [address] Progress Note 11/01/24 0836 MR#: [id number] Acct: [id number] Name: FRANKLIN WIGGINS Rep #:[id number] : 1965 59 From: Niranjan Li DO PCP: Care Physician,No Primary Status :ADM IN Location: [place] [address] Progress Note Patient has a little bit [...] doses of vancomycin. Visit Charges Inpatient E&M: 12707 Subs Hosp L3 11/01/24 0844 <Electronically signed by Niranjan Friend > Niranjan Li DO Cosigner Signature (if applicable): CC: ~ Signed [facility] Work Phone: 1(990) [phone] Consult note Author Ale Renee [facility] Note Date/Time November 01, 2024 6:1 1am [facility] Medical Records Department [address] [place] [address] Pharmacokinetic/Renal -Consult 11/01/24 0604 MR#: [id number] Acct: [id number] Name: FRANKLIN WIGGINS Rep #:[id number] : 1965 59 From: Ale Renee PCP: Care Physician,No Primary Status :ADM IN Y Location: [place] [address] Consult Antibiotic Management Pharmacy has been consulted [...] Date Hill Caro DO CC: ~ Signed [facility] Work Phone: 1([phone]) [phone] Progress note Author Buster Fuchs [facility] Note Date/Time October 31, 2024 9:5 5am [facility] Medical Records Department [address] [place] [address] Progress Note - Hospitalist 10/31/24 0952 MR#: [id number] Acct: [id number] Name: FRANKLIN WIGGINS Rep #:[id number] : [...] (Auto) 80.3 H, Lymph %(Auto) 5.9 L, Kern % (Auto) 7.9, Eos % (Auto) 1.5, [...] they did add IV Flagyl ? Appreciate clinical field specialist assistance 2. Acute metabolic cephalopathy with nonalcoholic [...] DVT: SCDs Charges/Coding Visit Charges Inpatient E&M: 05359 Subs Hosp L2 10/31/24 0955 <Electronically signed by Buster Fuchs MD> Cosigner Signature (if applicable): CC: ~ Signed [facility] Work Phone: [phone]) [phone] Consult note Author Foster Rascon [facility] Note Date/Time October 31, 2024 7:3 1am [facility] Medical Records Department [address] [place] [address] Consultation 10/31/24 0730 MR#: [id number] Acct: [id number] Name: FRANKLIN WIGGINS Rep #:[id number] : [...] applicable): CC: No Primary Care Physician~ Signed [facility] Work Phone: [phone]) [phone] Consult note Author Niranjan Li [facility] Note Date/Time October 30, 2024 9:3 4pm [facility] Medical Records Department [address] [place] [address] Consultation - GI 10/30/242047 MR#: [id number] Acct: [id number] Name: FRANKLIN WIGGINS Rep #:[id number] : [...] of yellow-colored fluid removed. He presented backto [facility] ER complaining of abdominal pain, back [...] He is also on Zosyn for urosepsis. [facility] Medical History Chronic hypotension Obesity (BMI 30-39.9) [...] 85.6 H, Lymph % (Auto) 4.3 L, Kern % (Auto) 7.3, Eos % (Auto) 0.5, [...] NG tube in satisfactory position. Reading [facility] Assessment & Plan Assessment/Plan (1) [...] this admission. Charges/Coding Visit Charges Inpatient E&M: 39350 Init Hosp L3 10/30/242133 <Electronically signed by Niranjan Friend DO> Cosigner Signature (if applicable): CC: No Primary Care Physician~ Signed [facility] Work Phone: [phone]) [phone] Consult note Author Kourtney Reece [facility] Note Date/Time October 30, 2024 [facility] [address] [place] [address] Pharmacokinetic/Renal -Consult 10/30/24 1552 MR#: [id number] Acct: [id number] Name: FRANKLIN WIGGINS Rep #:[id number] : [...] monitor and adjust dosing as required. 10/30/24 6680 <Electronically signed by Kourtney Reece> Date _ Kourtney Reece 10/30/24 1612 <Electronically signed by Buster hurst MD> Cosigner Signature (if applicable): Date Buster Fuchs MD CC: ~ Signed [facility] Work Phone: [phone]) [phone] Progress [facility] Note Date/Time October 30, 2024 10: 45am [facility] Medical Records Department [address] [place] [address] Progress Note - Rn Integrity 10/30/24 1037 MR#: [id number] Acct: [id number] Name: FRANKLIN WIGGINS CARMELA Rep #:[id number] [...] Patch TOPICAL Not Given DAILY [facility] Protocol Midodrine 10 mg 10/29/24 02:00 [...] 85.5 H, Lymph % (Auto) 4.6 L, Kern % (Auto) 7.4, Eos % (Auto) 1.2, [...] 85.6 H, Lymph % (Auto) 4.3 L, Kern % (Auto) 7.3, Eos % (Auto) 0.5, [...] NG tube in satisfactory position. Reading Location: [facility] Assessment and Plan . Assessment and [...] Cosigner Signature (if applicable): CC: ~ Signed [facility] Work Phone: [phone]) [phone] Consult note Author Foster Rascon [facility] Note Date/Time October 30, 2024 9:5 8am [facility] Medical Records Department [address] [place] [address] Consultation - Urology 10/30/24 0956 MR#: [id number] Acct: [id number] Name: FRANKLIN WIGGINS Rep #:[id number] : [...] not available on the weekend here at [facility]. We discussed transferring to other hospital for nephrostomy tube placement. We could also have a nephrostomy tube placed on Friday if radiology services are available. For now we will continue with broad-spectrum antibiotics await culture results but if things progress I think he is going to need nephrostomy tube we will continue to follow. [facility] Medical History Chronic hypotension Obesity (BMI 30-39.9) [...] 85.5 H, Lymph % (Auto) 4.6 L, Kern % (Auto) 7.4, Eos % (Auto) 1.2, [...] 85.6 H, Lymph % (Auto) 4.3 L, Kern % (Auto) 7.3, Eos % (Auto) 0.5, [...] 3. Left-sided ureteral stent noted. Reading [facility] 10/30/24 09:11 IMPRESSION: NG tube in satisfactory position. Reading Location[facility] 10/30/2458 <Electronically signed by Foster Rascon MD> Cosigner Signature (if applicable): CC: No Primary Care Physician~ Signed [facility] Work Phone: [phone] Progress note Author Buster Fuchs [facility] Note Date/Time October 30, 2024 8:2 9am [facility] Medical Records Department [address] [place] [address] Progress Note - Hospitalist 10/30/24819 MR#: [id number] Acct: [id number] Name: FRANKLIN WIGGINS Rep #:[id number] : [...] 85.5 H, Lymph % (Auto) 4.6 L, Kern % (Auto) 7.4, Eos % (Auto) 1.2, [...] 85.6 H, Lymph % (Auto) 4.3 L, Kern % (Auto) 7.3, Eos % (Auto) 0.5, [...] antibiotics ? Cultures are pending ? Appreciate clinical field specialist assistance 2. Acute metabolic cephalopathy with nonalcoholic [...] DVT: SCDs Charges/Coding Visit Charges Inpatient E&M: 55409 Subs Hosp L2 10/30/24 0829 <Electronically signed by Buster Fuchs MD> Cosigner Signature (if applicable): CC: ~ Signed [facility] Work Phone: [phone] 407-972003-29-2025 Radiology Diagnostic study [facility]03-28-2025 Consult note Author Foster Rascon [facility] Note Date/Time October 29, 2024 10: 32am [facility] Medical Records Department [address] [place] [address] Consultation - Urology 10/29/24 0808 MR#: [id number] Acct: [id number] Name: FRANKLIN WIGGINS Rep #:[id number] : [...] emergency intervention is necessary from my standpoint [facility] Medical History Chronic hypotension Obesity (BMI 30-39.9) [...] 83.0 H, Lymph % (Auto) 5.6 L, Kern % (Auto) 8.4, Eos % (Auto) 1.4, [...] vertebral body compression fracture deformities. Reading Location: [facility] 10/29/24 1032 <Electronically signed by Foster Rascon MD> Cosigner Signature (if applicable): CC: No Primary Care Physician~ Signed [facility] Work Phone: [phone] Consult note Author Bola Meraz [facility] Note Date/Time October 29, 2024 10: 24am [facility] Medical Records Department [address] [place] [address] Consultation - Rn Integrity 10/29/24 0744 MR#: [id number] Acct: [id number] Name: FRANKLIN WIGGINS Rep #:[id number] : [...] coverage initiated. This note was generated with [employer] dictation software. It may contain incorrectwords, spelling, [...] stable, without the need for vasopressor support. [facility] Medical History Chronic hypotension Obesity (BMI 30-39.9) [...] 83.0 H, Lymph % (Auto) 5.6 L, Kern % (Auto) 8.4, Eos % (Auto) 1.4, [...] vertebral body compression fracture deformities. Reading Location: [facility] Charges/Coding Visit Charges Inpatient E&M: 25707 Init Hosp L3 10/29/24 1024 <Electronically signed by Bola Meraz DO> Cosigner Signature (if applicable): CC: No Primary Care Physician~ Signed [facility] Work Phone: [phone] Radiology Diagnostic study [facility]03-28-2025 History and physical note Author Hill Wright [facility] Note Date/Time October 29, 2024 6:4 7am [facility] Medical Records Department [address] [place], [place] [address] [address] H&P Exam - Hospitalist 10/29/24 0033 MR#: [id number] Acct: [id number] Name: FRANKLIN WIGGINS Rep #:[id number] : 1965 59 From: Hill Luna DO PCP: Care Physician,No Primary Status :ADM IN Location: ICU ICU02-1 [facility] General General Date of Admission: 10/29/24 Date [...] toSeptember 02, 2024 with patient diagnosed with shqje-jt-zozkivh hypotension in thesetting of acute hepatic encephalopathy [...] fluid removed who once again presents to [facility] ER complaining of abdominal pain, back [...] thatis expected to extend beyond 2 midnights. [facility] Medical History Chronic hypotension Obesity (BMI 30-39.9) [...] 83.0 H, Lymph % (Auto) 5.6 L, Kern % (Auto) 8.4, Eos % (Auto) 1.4, [...] vertebral body compression fracture deformities. Reading Location: [facility] Assessment & Plan Assessment/Plan (1) [...] and sensitivity data. Give acetaminophen prn for tlvl-dy-cqwqgxxq (level 1-5/10) pain or fever. Give morphine [...] appreciated in advance. Finally, we will consult clinical field specialist to see this patient on-rounds in the AM for further recommendations with help appreciated in advance. 2. Admission here from August 29, 2024 to September 02, 2024 with patient diagnosed with hdxny-pz-cbztxdg hypotension in the setting of acute hepatic [...] with Left ureteral stent placement by Dr. Rasocn of urology with plan for laser lithotripsy [...] responsive hypotension Charges/Coding Visit Charges Inpatient E&M: 85764 Init Hosp L3 10/29/24 0647 <Electronically signed by Hill Caro DO> Cosigner Signature (if applicable): CC: Dr. Hill Caro DO; No Primary Care Physician~ Signed [facility] Work Phone: [phone] Consult note Author Ale Renee [facility] Note Date/Time October 29, 2024 3:3 4am [facility] Medical Records Department [address] [place] [address] Pharmacokinetic/Renal -Consult 10/29/24316 MR#: [id number] Acct: [id number] Name: FRANKLIN WIGGINS CARMELA Rep #:[id number] [...] Date Hill Caro DO CC: ~ Signed [facility] Work Phone: [phone] Discharge summary Author Alber Dunn [facility] Note Date/Time October 29, 2024 1:0 4am [facility] Medical Records Department [address] [place] [address] Emergency Department Summary 10/28/24 MR#: [id number] Acct: [id number] Name: FRANKLIN WIGGINS Rep #:[id number] : [...] 83.0 H Lymph % (Auto) 5.6 L Kern % (Auto) 8.4 Eos % (Auto) 1.4 [...] Clarity Cloudy Urine pH 6.5 Ur Specific Vendor 1.015 Urine Protein 500 H Urine Glucose [...] vertebral body compression fracture deformities. Reading Location: [facility] Rhythm Strip Rhythm Strip: Sinus [...] 30-74 minutes, Including time spent:,Discussing w/Patient &/or Family/Yard Associate, Discussing w/Consultants, ArrangingAdmission or Transfer, Performing Direct Patient Care at Bedside and - (38 min) Discharge Plan Dx/Rx/DC Orders Clinical Impression: Chronic back pain, Chronic abdominal pain, Leukocytosis, Acute UTI, Acute hypotension, Acidosis, lactic, Sepsis Disposition Disposition: [facility] What to do if you have Problems For any increased pain, shortness of breath, bleeding, nausea or vomiting, chestpain, or any unexpected problems, contact your Primary Care Provider. Call [facility] ([phone]) or report to the closest Emergency Room. Call 911 if necessary. 10/29/24 010 <Electronically signed by Alber Dunn MD> Cosigner Signature (if applicable): CC: No Primary Care Physician ~ Signed [facility] Work Phone: [phone] Evaluation note* Diagnosis Onset Date Resolution Status Admit Date Clostridium difficile colitis acute October 29, 2024 12:43am History of uric acid staghor n calculus acute October 29, 2024 12:43am Hyponatremia acute October 29, 2024 12:43am Leukocytosis acute October 29, 2024 12:43am Obesity (BMI 30.0-34.9) acute [facility] 2024 12:43am Chronic abdominal pain chronic [facility] 2024 12:43am Chronic back pain chronic [...] 2024 7:00am Lactic acidosis acute January 7:00am [facility] Work Phone: [phone] Evaluation note* Diagnosis Onset Date Resolution Status Admit Date Clostridium difficile colitis acute October 29, 2024 12:43am History of uric acid staghor n calculus acute October 29, 2024 12:43am Hyponatremia acute October 29, 2024 12:43am Leukocytosis acute October 29, 2024 12:43am Obesity (BMI 30.0-34.9) acute [facility] 2024 12:43am Chronic abdominal pain chronic [facility] 2024 12:43am Chronic back pain chronic [...] January 7:00am Umbilical hernia acute January 7:00am [facility] Work Phone: [phone] Evaluation note* Diagnosis Onset Date Resolution Status Admit Date Clostridium difficile colitis acute October 29, 2024 12:43am History of uric acid staghor n calculus acute October 29, 2024 12:43am Hyponatremia acute October 29, 2024 12:43am Leukocytosis acute October 29, 2024 12:43am Obesity (BMI 30.0-34.9) acute [facility] 2024 12:43am Chronic abdominal pain chronic [facility] 2024 12:43am Chronic back pain chronic [...] January 28 7:00am Hepatic encephalopathy resolved [facility] 2024 7:00am Lactic acidosis resolved January 7:00am Umbilical hernia inactive January 7:00am [facility] Work Phone: [phone] Evaluation note* Diagnosis Onset Date Resolution Status Admit Date Clostridium difficile colitis acute October 29, 2024 12:43am History of uric acid staghor n calculus acute October 29, 2024 12:43am Hyponatremia acute October 29, 2024 12:43am Leukocytosis acute October 29, 2024 12:43am Obesity (BMI 30.0-34.9) acute [facility] 2024 12:43am Chronic abdominal pain chronic [facility] 2024 12:43am Chronic back pain chronic [...] Chronic anemia chronic February 16, 2025 6:26pm [facility] Work Phone: [phone] Evaluation note* Diagnosis Onset Date Resolution Status Admit Date Clostridium difficile colitis acute October 29, 2024 12:43am History of uric acid staghor n calculus acute October 29, 2024 12:43am Hyponatremia acute October 29, 2024 12:43am Leukocytosis acute October 29, 2024 12:43am Obesity (BMI 30.0-34.9) acute [facility] 2024 12:43am Chronic abdominal pain chronic [facility] 2024 12:43am Chronic back pain chronic [...] Chronic anemia chronic February 16, 2025 6:26pm [facility] Work Phone: [phone] Evaluation note* Diagnosis Onset Date Resolution Status [...] Hepatic cirrhosis acute March 10, 2025 1:52pm [facility] Work Phone: [phone] Discharge summary [facility] Medical Records Department [address] [place] [address] Emergency Department Summary 10/28/24 MR#: [id number] Acct: [id number] Name: FRANKLIN WIGGINS Rep #:[id number] : [...] Prior similar symptoms: Yes [facility] Medical History Chronic hypotension Obesity (BMI 30-39.9) [...] There is a pressure was 81/50 5 ikpsro95/60 when I am in the room it [...] sepsis. Currently he is stable at12:10 AM. [facility] blood pressure is 110/67. Spoke to [...] 83.0 H Lymph % (Auto) 5.6 L Kern % (Auto) 8.4 Eos % (Auto) 1.4 [...] Clarity Cloudy Urine pH 6.5 Ur Specific Vendor 1.015 Urine Protein 500 H Urine Glucose [...] vertebral body compression fracture deformities. Reading Location: [facility] Rhythm Strip Rhythm Strip: Sinus [...] 30-74 minutes, Including time spent:,Discussing w/Patient &/or Family/Yard Associate, Discussing w/Consultants, ArrangingAdmission or Transfer, Performing Direct Patient Care at Bedside and - (38 min) Discharge Plan Dx/Rx/DC Orders Clinical Impression: Chronic back pain, Chronic abdominal pain, Leukocytosis, Acute UTI, Acute hypotension, Acidosis, lactic, Sepsis Disposition Disposition: Acute Care Hospital [facility] What to do if you have Problems For any increased pain, shortness of breath, bleeding, nausea or vomiting, chestpain, or any unexpected problems, contact your Primary Care Provider. Call [facility] ([phone]) or report tothe closest Emergency Room. Call 911 if necessary. 10/29/24 0106 Cosigner Signature (if applicable): CC: No Primary Care Physician ~ Signed [facility]03-27-2025 Radiology Diagnostic study note [facility] Imaging Services [address] [place], [place] [address] Abdomen/Pelvis W IV Cont ONLY MR#: [id number] Acct: [id number] Name: FRANKLIN WIGGINS Rep #: [id number] : 1965 M 59 From: Cassandra Starkey MD PCP: Care Physician,No Primary Status: REG ER Study:Abdomen/Pelvis W IV Cont ONLY Date of E xam: 10/28/24 Exam# [id number] Ordering Dr: Tee Dunn MD PROCEDURE: ABDOMEN/PELVIS [...] vertebral body compression fracture deformities. Reading Location: [facility] CC: Dr. Alber Dunn MD; No Primary Care Physician ~ Typer: Signed [facility]03-27-2025 Discharge summary Author Alber Dunn [facility] Note Date/Time October 29, 2024 1:0 4am [facility] Medical Records Department [address] [place] [address] Emergency Department Summary 10/28/24 MR#: [id number] Acct: [id number] Name: FRANKLIN WIGGINS Rep #:[id number] : [...] There is a pressure was 81/50 5 ysvpbq11/60 when I am in the room it [...] 83.0 H Lymph % (Auto) 5.6 L Kern % (Auto) 8.4 Eos % (Auto) 1.4 [...] Clarity Cloudy Urine pH 6.5 Ur Specific Vendor 1.015 Urine Protein 500 H Urine Glucose [...] vertebral body compression fracture deformities. Reading Location: [facility] Rhythm Strip Rhythm Strip: Sinus [...] 30-74 minutes, Including time spent:,Discussing w/Patient &/or Family/Yard Associate, Discussing w/Consultants, ArrangingAdmission or Transfer, Performing Direct Patient Care at Bedside and - (38 min) Discharge Plan Dx/Rx/DC Orders Clinical Impression: Chronic back pain, Chronic abdominal pain, Leukocytosis, Acute UTI, Acute hypotension, Acidosis, lactic, Sepsis Disposition Disposition: Acute Care Hospital [facility] What to do if you have Problems For any increased pain, shortness of breath, bleeding, nausea or vomiting, chestpain, or any unexpected problems, contact your Primary Care Provider. Call [facility] ([phone]) or report to the closest Emergency Room. Call 911 if necessary. 10/29/24 0104 <Electronically signed by Alber Dunn MD> Cosigner Signature (if applicable): CC: No Primary Care Physician ~ Signed [facility] Work Phone: [phone]) 907-459603-03-2025 Procedure note* Joey Huang DO - 10/04/2024 5:17 PM ESTAssociated Order(s): Paracentesis Post-Procedure Diagnose(s): Other ascites Paracentesis Date/Time: 10/04/2024 5:17 PM Performed by: Joey Huang DO Authorized by: Joey Huang DO Consent: Consent obtained: Written Consent given by: Patient Risks, benefits, and alternatives were discussed: yes Risks discussed: Bleeding, bowel perforation and infection Alternatives discussed: No treatment [place] protocol: Procedure explained and questions answered to [...] Adhesive bandage Post-procedure details: Procedure completion: Tolerated [facility] Work Phone: [phone]) [phone] Procedure note* Joey Huang DO - 10/04/2024 5:17 PM ESTAssociated Order(s): Paracentesis Post-Procedure Diagnose(s): Other ascites Paracentesis Date/Time: 10/04/2024 5:17 PM Performed by: Joey Huang DO Authorized by: Joey Huang DO Consent: Consent obtained: Written Consent given by: Patient Risks, benefits, and alternatives were discussed: yes Risks discussed: Bleeding, bowel perforation and infection Alternatives discussed: No treatment [place] protocol: Procedure explained and questions answered to [...] details: Procedure completion: Tolerated documented in this [facility] Work Phone: [phone]) 137-771203-03-2025 Consult note* Joey Huang DO - 10/04/2024 5:13 PM EST Reason For Consult Ascites History Of Present Illness Franklin Wiggins is a 59 y.o. male presenting with abdominal pain. He presented to the emergency room from [facility] secondary to increasing abdominal girth pain and ascites He was recently drained at [facility] for his ascites [...] call Assessment & Plan Joey Huang DO [facility] Work Phone: [phone]) 465-614903-03-2025 Consult note* Joey Huang DO - 10/04/2024 5:13 PM EST Reason For Consult Ascites History Of Present Illness Franklin Wiggins is a 59 y.o. male presenting with abdominal pain. He presented to the emergency room from [facility] secondary to increasing abdominal girth pain and ascites He was recently drained at [facility] for his ascites [...] Plan Joey Huang DO documented in this [facility] Work Phone: [phone]) [phone] Physician Emergency department Note* Sriram Oleary PA-C [...] Abnormality Status --------- ------ Urinalysis with Reflex C...[[id number]] Extra Urine Toney Tube[[id number]] Please view results for these tests on the individual orders. URINALYSIS WITH REFLEX CULTURE AND MICROSCOPIC EXTRA URINE TONEY TUBE PH, BODY FLUID LACTATE DEHYDROGENASE, BODY FLUID Narrative: The following orders were created for panel order Lactate Dehydrogenase, Body Fluid. Procedure Abnormality Status --------- ------ Lactate Dehydrogenase, B...[[id number]] In process Please view results for these tests on the individual orders. GLUCOSE, BODY FLUID Narrative: The following orders were created for panel order Glucose, Body Fluid. Procedure Abnormality Status --------- ------ Glucose, Body Fluid[[id number]] In process Please view results for these tests on the individual orders. PROTEIN, TOTAL, BODY FLUID Narrative: The following orders were created for panel order Protein, Total, Body Fluid. Procedure Abnormality Status --------- ------ Protein, Total, Body Fluid[[id number]] In process Please view results for these tests on the individual orders. BODY FLUID CELL COUNT WITH DIFFERENTIAL Narrative: The following orders were created for panel order Body Fluid Cell Count With Differential. Procedure Abnormality Status --------- ------ Body Fluid Cell Count[[id number]] In process Body Fluid Differential[[id number]] In process Please view results for these tests on the individual orders. ALBUMIN, BODY FLUID Narrative: The following orders were created for panel order Albumin, Body Fluid. Procedure Abnormality Status --------- ------ Albumin, Body Fluid[[id number]] In process Please view results for these [...] Yohana Huang 10/04/2024 2:28 PM Dictation workstation: [id number] Procedures Medical Decision Making Patient is a 59-year-old male with a hx of cirrhosis who presents to the emergency department with a chief complaint of abdominal pain from [facility]. He reports increased abdominal pain that he describes as generalized, states that his abdomen is distended. Recently had a paracentesis performed at [facility] on September 29. [...] cirrhosis type (Multi) Sriram Oleary PA-C 10/04/241736 [facility] Work Phone: 1(186) 641-186303-03-2025 Emergency department Note* Sriram Oleary PA-C - [...] Abnormality Status --------- ------ Urinalysis with Reflex C...[[id number]] Extra Urine Toney Tube[[id number]] Please view results for these tests on the individual orders. URINALYSIS WITH REFLEX CULTURE AND MICROSCOPIC EXTRA URINE TONEY TUBE PH, BODY FLUID LACTATE DEHYDROGENASE, BODY FLUID Narrative: The following orders were created for panel order Lactate Dehydrogenase, Body Fluid. Procedure Abnormality Status --------- ------ Lactate Dehydrogenase, B...[[id number]] In process Please view results for these tests on the individual orders. GLUCOSE, BODY FLUID Narrative: The following orders were created for panel order Glucose, Body Fluid. Procedure Abnormality Status --------- ------ Glucose, Body Fluid[[id number]] In process Please view results for these tests on the individual orders. PROTEIN, TOTAL, BODY FLUID Narrative: The following orders were created for panel order Protein, Total, Body Fluid. Procedure Abnormality Status --------- ------ Protein, Total, Body Fluid[[id number]] In process Please view results for these tests on the individual orders. BODY FLUID CELL COUNT WITH DIFFERENTIAL Narrative: The following orders were created for panel order Body Fluid Cell Count With Differential. Procedure Abnormality Status --------- ------ Body Fluid Cell Count[[id number]] In process Body Fluid Differential[[id number]] In process Please view results for these tests on the individual orders. ALBUMIN, BODY FLUID Narrative: The following orders were created for panel order Albumin, Body Fluid. Procedure Abnormality Status --------- ------ Albumin, Body Fluid[[id number]] In process Please view results for these [...] Yohana Huang 10/04/2024 2:28 PM Dictation workstation: [id number] Procedures Medical Decision Making Patient is a 59-year-old male with a hx of cirrhosis who presents to the emergency department with a chief complaint of abdominal pain from [facility]. He reports increased abdominal pain that he describes as generalized, states that his abdomen is distended. Recently had a paracentesis performed at [facility] on September 29. [...] Sriram Oleary PA-C 10/04/241736 documented in this [facility] Work Phone: 1(600) 999-141302-26-2025 Evaluation note* Diagnosis Onset Date Resolution Status [...] 2 :16pm Umbilical hernia acute January 2:16pm [facility] Work Phone: 1(562) 294-809002-26-2025 Procedure note [facility] Medical Records Department [address] [place] [address] Operative Report 09/29/24 1048 MR#: [id number] Acct: [id number] Name: FRANKLIN WIGGINS Rep #:[id number] : 1965 59 From: Jasmine gusman NP [employer]EE [employer]ODUCER-C PCP: Care Physician,No Primary Status :REG CLI Location: US Problems Associated Problem List Diagnoses (1) Abdominal ascites: Multi Select Codes Radiology Radiology US Procedures: 83139 Paracentesis Operative Report (Standard) Operative Information Date of Procedure: 09/29/24 Pre-Operative Diagnosis: Abdominal ascites Post-Operative Diagnosis: Abdominal ascites Surgery/Procedure Performed: Ultrasound-guided paracentesis core paster: No Type of Anesthesia: Local Procedure Start [...] No Primary Care Physician; DIANE CALLAHAN~ Signed [facility]02-02-2025 Evaluation note* Diagnosis Onset Date Resolution [...] 2024 12:43am Chronic abdominal pain chronic [facility] 2024 12:43am Chronic back pain chronic [...] 6:06am Fall acute January 02, 2025 6:06am [facility] Work Phone: 1(263) 375-896302-02-2025 Evaluation note* Diagnosis Onset Date Resolution Status [...] 2:16pm Sepsis acute January 09, 2025 2:16pm [facility] Work Phone: 1(769) 578-305601-27-2025 Evaluation note* Diagnosis Onset Date Resolution Status [...] Abdominal ascites acute uar y 2024 9:35am [facility] Work Phone: 1(244) 732-840701-27-2025 Evaluation note* Diagnosis Onset Date Resolution Status [...] 2024 12:43am Obesity (BMI 30.0-34.9) acute [facility] 2024 12:43am Sepsis acute October 29 12:43am Chronic abdominal pain chronic [facility] 2024 12:43am Chronic back pain chronic October 032024 12:43am [facility] Work Phone: 1(744) 559-478601-27-2025 Evaluation note* Diagnosis Onset Date Resolution Status [...] October 29 12:43am Chronic abdominal pain chronic [facility] 2024 12:43am Chronic back pain chronic October 032024 12:43am [facility] Work Phone: 1(798) 454-197701-27-2025 Evaluation note* Diagnosis Onset Date Resolution Status [...] 2024 12:43am Chronic abdominal pain chronic [facility] 2024 12:43am Chronic back pain chronic [...] 4:28am Staghorn calculus acute November 032024 4:28am [facility] Work Phone: 1(647) 293-646001-27-2025 Evaluation note* Diagnosis Onset Date Resolution Status [...] 2024 12:43am Chronic abdominal pain chronic [facility] 2024 12:43am Chronic back pain chronic [...] infection) resolv ed November 28, 2024 4:51pm [facility] Work Phone: Discharge summary Author Herberth Carlson [facility] Note Date/Time November 21, 2024 4:1 6am [facility] Medical Records Department [address] [place] [address] Emergency Department Summary 11/21/24 MR#: [id number] Acct: [id number] Name: FRANKLIN WIGGINS Rep #:[id number] : [...] discontinue his lactulose. He was recently admitted [facility] for cirrhosis and other issues, he [...] toilet after multiple attempts over couple hours. [facility] Medical History Diarrhea Sepsis Acidosis, lactic Acute [...] (Auto) 68.7 Lymph % (Auto) 13.9 L Kern % (Auto) 9.2 Eos % (Auto) 7.2 [...] Sl Cldy Urine pH 6.0 Ur Specific Vendor 1.015 Urine Protein 500 H Urine Glucose [...] Follow-up to resolution recommended. Reading Location: [facility] Discussion w/another healthcare provider: Hospitalist Discharge Plan [...] Primary [Primary Care Provider] - Print Language: Sudanese Disposition Disposition: Acute Care Hospital [facility] What to do if you have Problems For any increased pain, shortness of breath, bleeding, nausea or vomiting, chestpain, or any unexpected problems, contact your Primary Care Provider. Call [facility] ([phone]) or report to the closest Emergency Room. Call 911 if necessary. 11/21/24 7836 <Electronically signed by Herberth Carlson MD> Cosigner Signature (if applicable): CC: No Primary Care Physician ~ Signed [facility] Work Phone: Discharge summary Author Mina Vinescliff [facility] Note Date/Time December 30, 2024 5:19a m [facility] Medical Records Department [address] [place] [address] Emergency Department Summary 12/30/24 MR#: [id number] Acct: [id number] Name: FRANKLIN WIGGINS Rep #:[id number] : [...] recent trauma prior to the pain beginning. [facility] Medical History Weakness Diarrhea Sepsis Acidosis, lactic [...] (Auto) 69.7 Lymph % (Auto) 14.0 L Kern % (Auto) 9.1 Eos % (Auto) 6.2 [...] Clarity Cloudy Urine pH 6.5 Ur Specific Vendor 1.010 Urine Protein 100 H Urine Glucose [...] you have any further concerns Print Language: Sudanese Disposition Disposition: Home, Self Care What to do if you have Problems For any increased pain, shortness of breath, bleeding, nausea or vomiting, chestpain, or any unexpected problems, contact your Primary Care Provider. Call [facility] ([phone]) or report to the closest Emergency Room. Call 911 if necessary. 12/30/24 0519 <Electronically signed by Mina Blood DO> Cosigner Signature (if applicable): CC: YG Elias ~ Signed [facility] Work Phone: Discharge summary Author Roddy Reeves [facility] Note Date/Time January 02, 2025 6:00a m [facility] Medical Records Department [address] [place] [address] Emergency Department Summary 01/02/25 MR#: [id number] Acct: [id number] Name: FRANKLIN WIGGINS Rep #:[id number] : [...] was here recently and was sent home. [facility] Medical History Weakness Diarrhea Sepsis Acidosis, lactic [...] mg tablet (Xifaxan) 550 mg PO BID [facility] ea #60 tabs 09/02/24 11/28/24 Rx [...] Patient following commands that he was at [facility] that wewere in [...] (Auto) 68.0 Lymph % (Auto) 12.2 L Kern % (Auto) 11.9 H Eos % (Auto) [...] Clarity Turbid Urine pH 6.0 Ur Specific Vendor 1.015 Urine Protein 100 H Urine Glucose [...] NP-C [Primary Care Provider] - Print Language: Sudanese Disposition Disposition: Acute Care Hospital [facility] What to do if you have Problems For any increased pain, shortness of breath, bleeding, nausea or vomiting, chestpain, or any unexpected problems, contact your Primary Care Provider. Call [facility] ([phone]) or report to the closest Emergency Room. Call 911 if necessary. 01/02/25 0600 <Electronically signed by Roddy Reeves DO> Cosigner Signature (if applicable): CC: YG Elias ~ Signed [facility] Work Phone: Discharge summary Author Mina Blood [facility] Note Date/Time February 08, 2025 3:03a [facility] Medical Records Department [address] [place] [address] Emergency Department Summary 02/08/25 MR#: [id number] Acct: [id number] Name: FRANKLIN WIGGINS Rep #:[id number] : [...] bouts of constipation fevers chills or dysuria. [facility] Medical History (Updated 02/08/25 @ 03:03 by [...] surgery as fat necrosis is a nonemergent joj-awof-vqavxsqcsch process. The patient will be given pain [...] Std Deviation 58.3 H RDW Coeff of Rfancis 17.9 H Plt Count 131 L MPV 10.1 Immature Gran % (Auto) 0.400 Neut % (Auto) 72.8 H Lymph % (Auto) 12.8 L Kern % (Auto) 8.1 Eos % (Auto) 5.4 [...] double-J stent in place. Anasarca. Reading Location: [place] [address] Discharge Plan Triage Chief Complaint: Abd Pain [...] Ambulatory Orders: Paracentesis with US (Routine) Facility: [facility] - Location: [facility] Ordered By: Dr. Mina Blood Primary [...] you have any further concerns. Print Language: Sudanese Disposition Disposition: Home, Self Care What to do if you have Problems For any increased pain, shortness of breath, bleeding, nausea or vomiting, chestpain, or any unexpected problems, contact your Primary Care Provider. Call [facility] ([phone]) or report to the closest Emergency Room. Call 911 if necessary. 02/08/25 0303 <Electronically signed by Mina Blood DO> Cosigner Signature (if applicable): CC: Dr. Jerald Sherwood MD ~ Signed [facility] Work Phone: Evaluation note* Diagnosis Other ascites- Primary Abdominal pain, generalized Cirrhosis of liver with ascites, unspecified hepatic cirrhosis type (Multi) Peripheral edema Edema Coagulopathy (Multi) Other and unspecified coagulation defects Hyperbilirubinemia Disorders of bilirubin excretion documented in this encounter [facility] Work Phone: Evaluation note* Diagnosis Metabolic dysfunction-associated steatohepatitis (MASH)- [facility] candidate- Primary Metabolic dysfunction-associated steatohepatitis (MASH) [facility] Pre-transplant evaluation for liver [facility]- Primary [facility] Liver [facility] candidate- Primary Pre-operative clearance Preoperative examination, unspecified [facility] Screening for genitourinary condition Screening for other and unspecified genitourinary condition [facility] Buster Fuchs [facility] Note Date/Time January 02, 2025 6:44a m [facility] Medical Records Department [address] [place] [address] H&P Exam - Hospitalist 01/02/25 0556 MR#: [id number] Acct: [id number] Name: FRANKLIN WIGGINS Rep #:[id number] : 1965 59 From: Buster duarte MD PCP: YG Pena Status:ADM I N Location: U [id number]- 1 HPI - General General Date of [...] At that time he was transferred to [facility] 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 Was not considered to be a liver transplant candidate and was placed on anticoagulation. He has had a couple of readmissions for weakness and debility. [place] to possibly have aUTI given a staghorn [...] Heis receiving potassium infusion in the ER. [facility] Medical History Weakness Diarrhea Sepsis Acidosis, lactic [...] (Auto) 68.0, Lymph % (Auto) 12.2 L, Kern % (Auto) 11.9 H, Eos % (Auto) [...] once verified Charges/Coding Visit Charges Inpatient E&M: 31300 Init Hosp L2 01/02/25 0644 <Electronically signed by Buster Fuchs MD> Cosigner Signature (if applicable): CC: YG Elias; Dr. Buster Fuchs MD~ Signed [facility] Work Phone: Hospital Discharge instructions* Attachments The following attachments cannot be sent through Care Everywhere. * Cirrhosis (Sudanese) * Abdominal pain (Sudanese) documented in this [facility] Work Phone: Hospital Discharge instructions [...] the ER should you have any [facility] Work Phone: Hospital Discharge instructionsAdditional Instructions [...] the ER should you have any further concerns.[facility] Work Phone: Hospital Discharge instructionsAdditional Instructions Thank you for trusting us with your care today! Please take Tylenol (2 pills, 650 mg), ibuprofen (2 pills, 400 mg) every 6 hours as needed for pain and fever control. Please return to the emergency department if your symptoms change or worsen. Please follow with your primary care physician for further outpatient evaluation and management.[facility] Work Phone: Hospital Discharge instructionsAdditional Instructions Take your short acting insulin and long-acting insulin as home as prescribed, you may need to give additional units if it continues to run high. Contact your hospice group.[facility] Work Phone: Hospital Discharge instructionsAdditional Instructions Date of Discharge: [facility]/25[facility] Work Phone: Reason for referral (narrative)No reason for referral information availableWWestern Reserve Hospital Work Phone: Summary Purpose Family History [...] Will No August 21 2:51pm Power of Automotive Window Tinter No August 21, 2024 2:51pm Living Will No August 30 12:39am Power of Automotive Window Tinter No August 30, 2024 12:39am Living Will No September 05 4:42am Power of Automotive Window Tinter No September 05, 2024 4:42am Advance Directive Response Recorded Date/ Time Living Will No August 21 2:51pm Do you have a Healthcare Power of Automotive Window Tinter? No August 21, 2024 2:51pm Living Will No August 30 12:39am Do you have a Healthcare Power of Automotive Window Tinter? No August 30, 2024 12:39am Living Will No September 05 4:42am Do you have a Healthcare Power of Automotive Window Tinter? No September 05, 2024 4:42am Living Will No October 28, 2024 5:24pm Do you have a Healthcare Power of Automotive Window Tinter? No October 28, 2024 5:24pm Advance Directive Response Recorded Date/ Time Living Will No August 21 2:51pm Do you have a Healthcare Power of Automotive Window Tinter? No August 21, 2024 2:51pm Living Will No August 30 12:39am Do you have a Healthcare Power of Automotive Window Tinter? No August 30, 2024 12:39am Living Will No September 05 4:42am Do you have a Healthcare Power of Automotive Window Tinter? No September 05, 2024 4:42am Living Will No October 29, 2024 1:46am Do you have a Healthcare Power of Automotive Window Tinter? No October 29, 2024 1:46am Date Activated Date Inactivated Comments 11/11/2024 7:22 AM Question Answer Comments Full Code Order Discussed With: Patient Date Activated Date Inactivated Comments 11/11/2024 7:22 AM Advance Directive Response Recorded Date/ Time Living Will No August 21 2:51pm Do you have a Healthcare Power of Automotive Window Tinter? No August 21, 2024 2:51pm Living Will No August 30 12:39am Do you have a Healthcare Power of Automotive Window Tinter? No August 30, 2024 12:39am Living Will No September 05 4:42am Do you have a Healthcare Power of Automotive Window Tinter? No September 05, 2024 4:42am Living Will No October 29, 2024 1:46am Do you have a Healthcare Power of Automotive Window Tinter? No October 29, 2024 1:46am Living Will Yes November 21, 2024 1:32am Do you have a Healthcare Power of Automotive Window Tinter? Yes November 21, 2024 1:32am Name of Medical Power of Automotive Window Tinter Amry anne November 21, 2024 1:32am Advance Directive Response Recorded Date/ Time Living Will No August 21 2:51pm Do you have a Healthcare Power of Automotive Window Tinter? No August 21, 2024 2:51pm Living Will No August 30 12:39am Do you have a Healthcare Power of Automotive Window Tinter? No August 30, 2024 12:39am Living Will No September 05 4:42am Do you have a Healthcare Power of Automotive Window Tinter? No September 05, 2024 4:42am Living Will No October 29, 2024 1:46am Do you have a Healthcare Power of Automotive Window Tinter? No October 29, 2024 1:46am Living Will Yes November 21, 2024 5:32am Do you have a Healthcare Power of Automotive Window Tinter? Yes November 21, 2024 5:32am Name of Medical Power of Automotive Window Tinter anne Hernandez November 21, 2024 5:32am Do you have a Healthcare Power of Automotive Window Tinter? No November 28, 2024 5:49pm Advance Directive Response Recorded Date/ Time Living Will No August 30 12:39am Do you have a Healthcare Power of Automotive Window Tinter? No August 30, 2024 12:39am Living Will No September 05 4:42am Do you have a Healthcare Power of Automotive Window Tinter? No September 05, 2024 4:42am Living Will No October 29, 2024 1:46am Do you have a Healthcare Power of Automotive Window Tinter? No October 29, 2024 1:46am Living Will Yes November 21, 2024 5:32am Do you have a Healthcare Power of Automotive Window Tinter? Yes November 21, 2024 5:32am Name of Medical Power of Automotive Window Tinter anne Hernandez November 21, 2024 5:32am Do you have a Healthcare Power of Automotive Window Tinter? No November 28, 2024 5:49pm Advance Directive Response Recorded Date/ Time Living Will No August 30 12:39am Do you have a Healthcare Power of Automotive Window Tinter? No August 30, 2024 12:39am Living Will No September 05 4:42am Do you have a Healthcare Power of Automotive Window Tinter? No September 05, 2024 4:42am Living Will No October 29, 2024 1:46am Do you have a Healthcare Power of Automotive Window Tinter? No October 29, 2024 1:46am Living Will Yes November 21, 2024 5:32am Do you have a Healthcare Power of Automotive Window Tinter? Yes November 21, 2024 5:32am Name of Medical Power of Automotive Window Tinter anne Hernandez November 21, 2024 5:32am Do you have a Healthcare Power of Automotive Window Tinter? No November 28, 2024 5:49pm Do you have a Healthcare Power of Automotive Window Tinter? No December 26, 2024 10:02am Advance Directive Response Recorded Date/ Time Living Will No August 30 12:39am Do you have a Healthcare Power of Automotive Window Tinter? No August 30, 2024 12:39am Living Will No September 05 4:42am Do you have a Healthcare Power of Automotive Window Tinter? No September 05, 2024 4:42am Living Will No October 29, 2024 1:46am Do you have a Healthcare Power of Automotive Window Tinter? No October 29, 2024 1:46am Living Will Yes November 21, 2024 5:32am Do you have a Healthcare Power of Automotive Window Tinter? Yes November 21, 2024 5:32am Name of Medical Power of Automotive Window Tinter anne Hernandez November 21, 2024 5:32am Do you have a Healthcare Power of Automotive Window Tinter? No November 28, 2024 5:49pm Do you have a Healthcare Power of Automotive Window Tinter? No December 26, 2024 10:02am Do you have a Healthcare Power of Automotive Window Tinter? No December 30, 2024 1:06am Advance Directive Response Recorded Date/ Time Do you have a Healthcare Power of Automotive Window Tinter? No January 02, 2025 2:59am Living Will No September 05 4:42am Do you have a Healthcare Power of Automotive Window Tinter? No September 05, 2024 4:42am Living Will No October 29, 2024 1:46am Do you have a Healthcare Power of Automotive Window Tinter? No October 29, 2024 1:46am Living Will Yes November 21, 2024 5:32am Do you have a Healthcare Power of Automotive Window Tinter? Yes November 21, 2024 5:32am Name of Medical Power of Automotive Window Tinter anne Hernandez November 21, 2024 5:32am Do you have a Healthcare Power of Automotive Window Tinter? No November 28, 2024 5:49pm Do you have a Healthcare Power of Automotive Window Tinter? No December 26, 2024 10:02am Do you have a Healthcare Power of Automotive Window Tinter? No December 30, 2024 1:06am Advance Directive Response Recorded Date/ Time Do you have a Healthcare Power of Automotive Window Tinter? No January 02, 2025 8:14am Living Will No September 05 4:42am Do you have a Healthcare Power of Automotive Window Tinter? No September 05, 2024 4:42am Living Will No October 29, 2024 1:46am Do you have a Healthcare Power of Automotive Window Tinter? No October 29, 2024 1:46am Living Will Yes November 21, 2024 5:32am Do you have a Healthcare Power of Automotive Window Tinter? Yes November 21, 2024 5:32am Name of Medical Power of Automotive Window Tinter anne Hernandez November 21, 2024 5:32am Do you have a Healthcare Power of Automotive Window Tinter? No November 28, 2024 5:49pm Do you have a Healthcare Power of Automotive Window Tinter? No December 26, 2024 10:02am Do you have a Healthcare Power of Automotive Window Tinter? No December 30, 2024 1:06am Advance Directive Response Recorded Date/ Time Do you have a Healthcare Power of Automotive Window Tinter? No January 02, 2025 8:14am Living Will No September 05 4:42am Do you have a Healthcare Power of Automotive Window Tinter? No September 05, 2024 4:42am Living Will No October 29, 2024 1:46am Do you have a Healthcare Power of Automotive Window Tinter? No October 29, 2024 1:46am Living Will Yes November 21, 2024 5:32am Do you have a Healthcare Power of Automotive Window Tinter? Yes November 21, 2024 5:32am Name of Medical Power of Automotive Window Tinter anne Hernandez November 21, 2024 5:32am Do you have a Healthcare Power of Automotive Window Tinter? No November 28, 2024 5:49pm Do you have a Healthcare Power of Automotive Window Tinter? No December 26, 2024 10:02am Do you have a Healthcare Power of Automotive Window Tinter? No December 30, 2024 1:06am Do you have a Healthcare Power of Automotive Window Tinter? No January 09, 2025 10:10am Advance Directive Response Recorded Date/ Time Do you have a Healthcare Power of Automotive Window Tinter? No January 02, 2025 8:14am Living Will No October 29, 2024 1:46am Do you have a Healthcare Power of Automotive Window Tinter? No October 29, 2024 1:46am Living Will Yes November 21, 2024 5:32am Do you have a Healthcare Power of Automotive Window Tinter? Yes November 21, 2024 5:32am Name of Medical Power of Automotive Window Tinter anne Hernandez November 21, 2024 5:32am Do you have a Healthcare Power of Automotive Window Tinter? No November 28, 2024 5:49pm Do you have a Healthcare Power of Automotive Window Tinter? No December 26, 2024 10:02am Do you have a Healthcare Power of Automotive Window Tinter? No December 30, 2024 1:06am Do you have a Healthcare Power of Automotive Window Tinter? No January 09, 2025 3:31pm Advance Directive Response Recorded Date/ Time Do you have a Healthcare Power of Automotive Window Tinter? No January 02, 2025 8:14am Do you have a Healthcare Power of Automotive Window Tinter? No January 28, 2025 3:02am Living Will No October 29, 2024 1:46am Do you have a Healthcare Power of Automotive Window Tinter? No October 29, 2024 1:46am Living Will Yes November 21, 2024 5:32am Do you have a Healthcare Power of Automotive Window Tinter? Yes November 21, 2024 5:32am Name of Medical Power of Automotive Window Tinter anne Hernandez November 21, 2024 5:32am Do you have a Healthcare Power of Automotive Window Tinter? No November 28, 2024 5:49pm Do you have a Healthcare Power of Automotive Window Tinter? No December 26, 2024 10:02am Do you have a Healthcare Power of Automotive Window Tinter? No December 30, 2024 1:06am Do you have a Healthcare Power of Automotive Window Tinter? No January 09, 2025 3:31pm Advance Directive Response Recorded Date/ Time Do you have a Healthcare Power of Automotive Window Tinter? No January 02, 2025 8:14am Do you have a Healthcare Power of Automotive Window Tinter? No January 28, 2025 3:02am Living Will No October 29, 2024 1:46am Do you have a Healthcare Power of Automotive Window Tinter? No October 29, 2024 1:46am Living Will Yes November 21, 2024 5:32am Do you have a Healthcare Power of Automotive Window Tinter? Yes November 21, 2024 5:32am Name of Medical Power of Automotive Window Tinter anne Hernandez November 21, 2024 5:32am Do you have a Healthcare Power of Automotive Window Tinter? No November 28, 2024 5:49pm Do you have a Healthcare Power of Automotive Window Tinter? No December 26, 2024 10:02am Do you have a Healthcare Power of Automotive Window Tinter? No December 30, 2024 1:06am Do you have a Healthcare Power of Automotive Window Tinter? No January 09, 2025 3:31pm Do you have a Healthcare Power of Automotive Window Tinter? No February 07, 2025 10:20pm Advance Directive Response Recorded Date/ Time Do you have a Healthcare Power of Automotive Window Tinter? No January 02, 2025 8:14am Do you have a Healthcare Power of Automotive Window Tinter? No January 28, 2025 3:02am Living Will No October 29, 2024 1:46am Do you have a Healthcare Power of Automotive Window Tinter? No October 29, 2024 1:46am Living Will Yes November 21, 2024 5:32am Do you have a Healthcare Power of Automotive Window Tinter? Yes November 21, 2024 5:32am Name of Medical Power of Automotive Window Tinter anne Hernandez November 21, 2024 5:32am Do you have a Healthcare Power of Automotive Window Tinter? No November 28, 2024 5:49pm Do you have a Healthcare Power of Automotive Window Tinter? No December 26, 2024 10:02am Do you have a Healthcare Power of Automotive Window Tinter? No December 30, 2024 1:06am Do you have a Healthcare Power of Automotive Window Tinter? No January 09, 2025 3:31pm Do you have a Healthcare Power of Automotive Window Tinter? No February 07, 2025 10:20pm Do you have a Healthcare Power of Automotive Window Tinter? No February 13, 2025 4:40pm Advance Directive Response Recorded Date/ Time Do you have a Healthcare Power of Automotive Window Tinter? No January 02, 2025 8:14am Do you have a Healthcare Power of Automotive Window Tinter? No January 28, 2025 3:02am Living Will No October 29, 2024 1:46am Do you have a Healthcare Power of Automotive Window Tinter? No October 29, 2024 1:46am Living Will Yes November 21, 2024 5:32am Do you have a Healthcare Power of Automotive Window Tinter? Yes November 21, 2024 5:32am Name of Medical Power of Automotive Window Tinter anne Hernandez November 21, 2024 5:32am Do you have a Healthcare Power of Automotive Window Tinter? No November 28, 2024 5:49pm Do you have a Healthcare Power of Automotive Window Tinter? No December 26, 2024 10:02am Do you have a Healthcare Power of Automotive Window Tinter? No December 30, 2024 1:06am Do you have a Healthcare Power of Automotive Window Tinter? No January 09, 2025 3:31pm Do you have a Healthcare Power of Automotive Window Tinter? No February 07, 2025 10:20pm Do you have a Healthcare Power of Automotive Window Tinter? No February 13, 2025 4:40pm Do you have a Healthcare Power of Automotive Window Tinter? No February 16, 2025 6:30pm Advance Directive Response Recorded Date/ Time Do you have a Healthcare Power of Automotive Window Tinter? No January 02, 2025 8:14am Do you have a Healthcare Power of Automotive Window Tinter? No January 28, 2025 3:02am Living Will No October 29, 2024 1:46am Do you have a Healthcare Power of Automotive Window Tinter? No October 29, 2024 1:46am Living Will Yes November 21, 2024 5:32am Do you have a Healthcare Power of Automotive Window Tinter? Yes November 21, 2024 5:32am Name of Medical Power of Automotive Window Tinter anne Hernandez November 21, 2024 5:32am Do you have a Healthcare Power of Automotive Window Tinter? No November 28, 2024 5:49pm Do you have a Healthcare Power of Automotive Window Tinter? No December 26, 2024 10:02am Do you have a Healthcare Power of Automotive Window Tinter? No December 30, 2024 1:06am Do you have a Healthcare Power of Automotive Window Tinter? No January 09, 2025 3:31pm Do you have a Healthcare Power of Automotive Window Tinter? No February 07, 2025 10:20pm Do you have a Healthcare Power of Automotive Window Tinter? No February 13, 2025 4:40pm Do you have a Healthcare Power of Automotive Window Tinter? No February 16, 2025 7:47pm Advance Directive Response Recorded Date/ Time Do you have a Healthcare Power of Automotive Window Tinter? No January 02, 2025 8:14am Do you have a Healthcare Power of Automotive Window Tinter? No January 28, 2025 3:02am Do you have a Healthcare Power of Automotive Window Tinter? No February 25, 2025 5:00pm Living Will No October 29, 2024 1:46am Do you have a Healthcare Power of Automotive Window Tinter? No October 29, 2024 1:46am Living Will Yes November 21, 2024 5:32am Do you have a Healthcare Power of Automotive Window Tinter? Yes November 21, 2024 5:32am Name of Medical Power of Automotive Window Tinter anne Hernandez November 21, 2024 5:32am Do you have a Healthcare Power of Automotive Window Tinter? No November 28, 2024 5:49pm Do you have a Healthcare Power of Automotive Window Tinter? No December 26, 2024 10:02am Do you have a Healthcare Power of Automotive Window Tinter? No December 30, 2024 1:06am Do you have a Healthcare Power of Automotive Window Tinter? No January 09, 2025 3:31pm Do you have a Healthcare Power of Automotive Window Tinter? No February 07, 2025 10:20pm Do you have a Healthcare Power of Automotive Window Tinter? No February 13, 2025 4:40pm Do you have a Healthcare Power of Automotive Window Tinter? No February 16, 2025 7:47pm Do you have a Healthcare Power of Automotive Window Tinter? No March 11, 2025 5:16pm Advance Directive Response Recorded Date/ Time Do you have a Healthcare Power of Automotive Window Tinter? No January 02, 2025 8:14am Do you have a Healthcare Power of Automotive Window Tinter? No January 28, 2025 3:02am Do you have a Healthcare Power of Automotive Window Tinter? No February 25, 2025 5:00pm Do you have a Healthcare Power of Automotive Window Tinter? No April 03, 2025 8:27pm Do you have a Healthcare Power of Automotive Window Tinter? No December 26, 2024 10:02am Do you have a Healthcare Power of Automotive Window Tinter? No December 30, 2024 1:06am Do you have a Healthcare Power of Automotive Window Tinter? No January 09, 2025 3:31pm Do you have a Healthcare Power of Automotive Window Tinter? No February 07, 2025 10:20pm Do you have a Healthcare Power of Automotive Window Tinter? No February 13, 2025 4:40pm Do you have a Healthcare Power of Automotive Window Tinter? No February 16, 2025 7:47pm Do you have a Healthcare Power of Automotive Window Tinter? No March 10, 2025 8:43am Do you have a Healthcare Power of Automotive Window Tinter? No March 11, 2025 5:16pm Do you have a Healthcare Power of Automotive Window Tinter? No April 07, 2025 7:00pm Advance Directive Response Recorded Date/ Time Do you have a Healthcare Power of Automotive Window Tinter? No January 02, 2025 8:14am Do you have a Healthcare Power of Automotive Window Tinter? No January 28, 2025 3:02am Do you have a Healthcare Power of Automotive Window Tinter? No February 25, 2025 5:00pm Do you have a Healthcare Power of Automotive Window Tinter? No April 03, 2025 8:27pm Do you have a Healthcare Power of Automotive Window Tinter? No December 26, 2024 10:02am Do you have a Healthcare Power of Automotive Window Tinter? No December 30, 2024 1:06am Do you have a Healthcare Power of Automotive Window Tinter? No January 09, 2025 3:31pm Do you have a Healthcare Power of Automotive Window Tinter? No February 07, 2025 10:20pm Do you have a Healthcare Power of Automotive Window Tinter? No February 13, 2025 4:40pm Do you have a Healthcare Power of Automotive Window Tinter? No February 16, 2025 7:47pm Do you have a Healthcare Power of Automotive Window Tinter? No March 10, 2025 8:43am Do you have a Healthcare Power of Automotive Window Tinter? No March 11, 2025 5:16pm Do you have a Healthcare Power of Automotive Window Tinter? No April 07, 2025 11:36pm Chief Complaint [...] History of uric acid staghorn calculus [facility] 2024 12:43am Hyponatremia October 29, 2024 [...] SEPSIS, UTI, DIARRHEA & ABDOMINAL PAIN [facility] 2024 12:43am SEPSIS, UTI, DIARRHEA & ABDOMINAL [...] Thrombus Procedures Evaluate and treat HOSP MAIN [id number] [place] [address] Phone: tel: Referral ID Status Reason Start Date Expiration Date Visits Re quested Visits Authorized [id number] 1 1 Reason Comments Abdominal Pain Patient [...] 2024 End: November 11, 2024 Yue Delgadillo BEE PRODUCER, BEE PRODUCER-C Other Provider Active St art: October 29, [...] Sta rt: November 10, 2024 Yue Delgadillo BEE PRODUCER, BEE PRODUCER-C Other Provider Active St art: November 10, [...] Inactive Member Role Status Dates Josy Elias BEE PRODUCER-C Primary Care Provider Active Start: December 30, 2024 End: December 30, 2024 Dr. Mina Blood DO Attending Provider Active Start: December 30, 2024 End: December 30, 2024 Dr. Mina Blood DO Emergency Provider Active Start: December 30, 2024 End: December 30, 2024 Team Status: Inactive Member Role Status Dates Josy Elias BEE PRODUCER-C Primary Care Provider Active Start: January 02, [...] Active Member Role Status Dates Josy Elias BEE PRODUCER-C Primary Care Provider Active Start: January 03, [...] Active Member Role Status Dates Josy Elias BEE PRODUCER-C Primary Care Provider Active Start: January 04, [...] Active Member Role Status Dates Josy Elias BEE [employer]ODUCER-C Primary Care Provider Active Start: January 05, 2025 Dr. Roddy Reeves DO Emergency Provider Active Start: January 05, 2025 Dr. Buster Fuchs MD Admit Provider Active Start: January 05, 2025 Dr. Busetr Fuchs MD Other Provider Active Start: January 05, 2025 Dr. Hill Acuña MD Attending Provider Active Start: January 05, 2025 Dr. Hill Acuña MD Other Provider Active Star t: January 05, 2025 Team Status: Inactive Member Role Status Dates Josy Elias BEE PRODUCER-C Primary Care Provider Active Start: January 09, [...] Active Member Role Status Dates Josy Elias BEE PRODUCER-C Primary Care Provider Active Start: January 11, [...] Active Member Role Status Dates Josy Elias BEE PRODUCER-C Primary Care Provider Active Start: January 12, [...] Active Member Role Status Dates [facility] Primary [facility] Provider Active Start: January 13, [...] Active Member Role Status Dates Josy Elias [facility] Primary Care Provider Active Start: January 14, [...] Active Member Role Status Dates Josy Elias BEE PRODUCER-C Primary Care Provider Active Start: January 18, [...] Active Member Role Status Dates Josy Elias BEE PRODUCER-C Primary Care Provider Active Start: January 20, [...] Provider Active Start: August 31, 2024 Dr. MariaG uadalupe Shore MD Admit Provider Active St art: [...] 2024 End: September 15, 2024 Dr. Hill Caor DO Other Provider Active Start: September 05, [...] Other Provider Active Start: 2024 Jasmine Morocho BEE PRODUCER, BEE PRODUCER-C Attending Provider Active Start: September 29, 2024 [employer] Sales Representative Relationship Specialty Start Date End Date Maurice Rincon MD [address] [place] [id number] PCP - General Internal Medicine 09/21/24 Team [...] Inactive Member Role Status Dates Josy Elias BEE PRODUCER-C Primary Care Provider Active Start: December 26, 2024 End: December 26, 2024 Dr. Boone Carvajal , Emergency Provider Active Start: December 26, 2024 End: December 26, 2024 Team Status: Inactive Member Role Status Dates Josy Elias BEE PRODUCER-C Primary Care Provider Active Start: December 30, 2024 End: December 30, 2024 Dr. Mina Blood , Emergency Provider Active Start: December 30, 2024 End: December 30, 2024 Team Status: Active Member Role Status Dates Josy Elias BEE PRODUCER-C Primary Care Provider Active Start: January 02, 2025 Dr. Roddy Reeves , Emergency Provider Active Start: January 02, 2025 Dr. Buster Fuchs MD Admit Provider Active Start: January 02, 2025 Dr. Buster Fuchs MD Attending Provider Active Start: January 02, 2025 Dr. Buster Fuchs MD Other Provider Active Start: January 02, 2025 Team Status: Active Member Role Status Dates Josy Elias BEE PRODUCER-C Primary Care Provider Active Start: January 09, 2025 Dr. Breann Mendez DO Emergency Provider Active S tart: January 09, 2025 Dr. Yaritza Leo , Admit Provider Active Start : January 09, 2025 Dr. Yaritza Leo , Attending Provider Active S tart: January 09, 2025 Team Status: Active Member Role Status Dates Josy Elias BEE PRODUCER-C Primary Care Provider Active Start: January 11, [...] 29, 2024 End: November 11, 2024 Dr. Hlil Caro DO Other Provider Active Start: October [...] 2024 End: November 11, 2024 Yue Delgadillo BEE PRODUCER, BEE PRODUCER-C Other Provider Active St art: October 29, [...] Active Start: October 29, 2024 Dr. Lupillo oRbbins MD Other Provider Active Star t: October [...] Active Star t: October 29, 2024 Dr. Yuong Richardson MD Other Provider Active Sta rt: [...] Active Start: November 01, 2024 Dr. Hlil Acuña MD Other Provider Active Star t: [...] Sta rt: November 10, 2024 Yue Delgadillo BEE PRODUCER, BEE PRODUCER-C Other Provider Active St art: November 10, [...] Member Role/Relationship Status Dates Josydominique Elias , BEE PRODUCER-C Primary Care Provider Active Start: December 07, 2024 End: December 07, 2024 Josydominique Elias , BEE PRODUCER-C Attending Provider Active Start: December 07, 2024 End: December 07, 2024 Team Status: Inactive Member Role/Relationship Status Dates Josydominique Baumannhoantoinette , BEE PRODUCER-C Primary Care Provider Active Start: December 15, 2024 End: December 15, 2024 Josydominique Elias , BEE PRODUCER-C Attending Provider Active Start: December 15, 2024 End: December 15, 2024 Josydominique Elias , BEE PRODUCER-C Referring Provider Active Start: December 15, 2024 End: December 15, 2024 Team Status: Inactive Member Role/Relationship Status Dates Josydominique Elias , BEE PRODUCER-C Primary Care Provider Active Start: December 26, 2024 End: December 26, 2024 Dr. Boone Carvajal DO Attending Provider Active Start: December 26, 2024 End: December 26, 2024 Dr. Boone Carvajal DO Emergency Provider Active Start: December 26, 2024 End: December 26, 2024 Team Status: Inactive Member Role/Relationship Status Dates Josy Elias BEE PRODUCER-C Primary Care Provider Active Start: December 30, 2024 End: December 30, 2024 Dr. Mina Blood DO Attending Provider Active Start: December 30, 2024 End: December 30, 2024 Dr. Mina Blood DO Emergency Provider Active Start: December 30, 2024 End: December 30, 2024 Team Status: Inactive Member Role/Relationship Status Dates Josy Elias BEE PRODUCER-C Primary Care Provider Active Start: January 02, [...] Active Member Role/Relationship Status Dates Josy Elias BEE PRODUCER-C Primary Care Provider Active Start: January 03, [...] Active Member Role/Relationship Status Dates Josy Elias BEE PRODUCER-C Primary Care Provider Active Start: January 04, [...] Active Member Role/Relationship Status Dates Josy Elias BEE PRODUCER-C Primary Care Provider Active Start: January 05, [...] Inactive Member Role/Relationship Status Dates Josy Elias BEE PRODUCER-C Primary Care Provider Active Start: January 09, [...] Status: Active Member Role/Relationship Status Dates [facility]-C Primary Care Provider Active Start: January 11, [...] Active Member Role/Relationship Status [facility] Active Start: January [...] Team Status: Active Member Role/Relationship Status Dates Joys Elias NP-C Primary Care Provider Active Start: [...] Active Member Role/Relationship Status Dates Josy Elias BEE PRODUCER-C Primary Care Provider Active Start: January 15, [...] Active Member Role/Relationship Status Dates Josy Elias BEE PRODUCER-C Primary Care Provider Active Start: January 16, [...] Active Member Role/Relationship Status Dates Josy Elias BEE PRODUCER-C Primary Care Provider Active Start: January 17, [...] Active Member Role/Relationship Status Dates Josy Elias BEE PRODUCER-C Primary Care Provider Active Start: January 18, [...] Active Member Role/Relationship Status Dates Josy Elias BEE PRODUCER-C Primary Care Provider Active Start: January 20, [...] 2024 End: November 11, 2024 Yue Delgadillo BEE PRODUCER, BEE PRODUCER-C Other Provider Active St art: October 29, [...] Provider Active Start: November 30, 2024 Dr. iHll Acuña MD Other Provider Active Star t: [...] Inactive Member Role/Relationship Status Dates Josy Elias BEE PRODUCER-C Primary Care Provider Active Start: December 07, 2024 End: December 07, 2024 Josy Elias NP-C Attending Provider Active Start: December 07, 2024 End: December 07, 2024 Team Status: Inactive Member Role/Relationship Status Dates Josy Elias BEE PRODUCER-C Primary Care Provider Active Start: December 15, 2024 End: December 15, 2024 Josy Elias NP-C Attending Provider Active Start: December 15, 2024 End: December 15, 2024 Josy Elias NP-C Referring Provider Active Start: December 15, 2024 End: December 15, 2024 Team Status: Inactive Member Role/Relationship Status Dates Josy Elias BEE PRODUCER-C Primary Care Provider Active Start: December 26, 2024 End: December 26, 2024 Dr. Boone Carvajal DO Attending Provider Active Start: December 26, 2024 End: December 26, 2024 Dr. Boone Carvajal DO Emergency Provider Active Start: December 26, 2024 End: December 26, 2024 Team Status: Inactive Member Role/Relationship Status Dates Josy Elias , BEE PRODUCER-C Primary Care Provider Active Start: December 30, 2024 End: December 30, 2024 Dr. Mina Blood DO Attending Provider Active Start: December 30, 2024 End: December 30, 2024 Dr. Mina Blood DO Emergency Provider Active Start: December 30, 2024 End: December 30, 2024 Team Status: Inactive Member Role/Relationship Status Dates Josy Elias BEE PRODUCER-C Primary Care Provider Active Start: January 02, [...] Active Member Role/Relationship Status Dates Josy Elias BEE PRODUCER-C Primary Care Provider Active Start: January 03, 2025 Dr. Roddy Reeves DO Emergency Provider Active Start: January 03, 2025 Dr. Buster Fuchs MD Admit Provider Active Start: January 03, 2025 Dr. Buster Fuchs MD Other Provider Active Start: January 03, 2025 Dr. Hill cAuña MD Attending Provider Active Start: January 03, 2025 Dr. Hill Acuña MD Other Provider Active Star t: January 03, 2025 Team Status: Active Member Role/Relationship Status Dates Josy Elias BEE PRODUCER-C Primary Care Provider Active Start: January 04, [...] Active Member Role/Relationship Status Dates Josy Elias BEE PRODUCER-C Primary Care Provider Active Start: January 05, [...] Inactive Member Role/Relationship Status Dates Josy Elias BEE PRODUCER-C Primary Care Provider Active Start: January 09, [...] Active Member Role/Relationship Status Dates Josy Elias BEE PRODUCER-C Primary Care Provider Active Start: January 10, [...] Active Member Role/Relationship Status Dates Josy Elias BEE PRODUCER-C Primary Care Provider Active Start: January 11, [...] Active Member Role/Relationship Status Dates Josy Elias BEE PRODUCER-C Primary Care Provider Active Start: January 12, [...] Active Member Role/Relationship Status Dates Josy Elias BEE PRODUCER-C Primary Care Provider Active Start: January 15, [...] 2025 End: February 25, 2025 Josy Elias BEE PRODUCER-C Other Provider Active Star t: February 24, 2025 End: February 25, 2025 Team Status: Active Member Role/Relationship Status Dates Josy Elias BEE PRODUCER-C Primary Care Provider Active Start: February 25, 2025 Dr. Herberth Carlson MD Emergency Provider Active Start: February 25, 2025 Dr. Kathie Powers MD Attending Provider Active Start: February 25, 2025 Team Status: Inactive Member Role/Relationship Status Dates Josy Elias BEE PRODUCER-C Primary Care Provider Active Start: February 25, [...] Active Member Role/Relationship Status Dates Josy Elias BEE PRODUCER-C Primary Care Provider Active Start: February 25, 2025 Dr. Herberth Carlson MD Emergency Provider Active Start: February 25, 2025 Dr. Kathie Powers MD Admit Provider Active Star t: February 25, 2025 Dr. Kathie Powers MD Other Provider Active Star t: February 25, 2025 Dr. Niranjan Li DO Attending Provider Active Start: February 25, 2025 Team Status: Active Member Role/Relationship Status Dates Josy Elias BEE PRODUCER-C Primary Care Provider Active Start: February 26, [...] Active Member Role/Relationship Status Dates Josy Elias BEE PRODUCER-C Primary Care Provider Active Start: February 27, 2025 Dr. Herberth Carlson MD Emergency Provider Active Start: February 27, 2025 Dr. Kathie Powesr MD Admit Provider Active Star t: February 27, 2025 Dr. Kathie Powers MD Other Provider Active Star t: February 27, 2025 Dr. Rick Carlin DO Attending Provider Active Start: February 27, 2025 Dr. Rick Carlin DO Other Provider Active S tart: February 27, 2025 Team Status: Active Member Role/Relationship Status Dates Josydominique Baumannhof , BEE PRODUCER-C Primary Care Provider Active Start: March 04, 2025 DIANE BILLE Attending Provider Active Start: [facility] 2024 DIANE, BILLE Referring Provider Active Start: [facility] 2024 Team Status: Inactive Member Role/Relationship Status Dates Josy Tannhof , BEE PRODUCER-C Primary Care Provider Active Start: March 10, 2025 End: March 10, 2025 Josy Tannhof , BEE PRODUCER-C Referring Provider Active Start: March 10, 2025 End: March 10, 2025 Dr. Roby Balderas MD Attending Provider Active Start: March 10, 2025 End: March 10, 2025 Team Status: Inactive Member Role/Relationship Status Dates Josy Tannhof , BEE PRODUCER-C Primary Care Provider Active Start: March 11, 2025 End: March 11, 2025 Dr. Alber Dunn MD Emergency Provider Active S tart: March 11, 2025 End: March 11, 2025 Team Status: Inactive Member Role/Relationship Status Dates Josy Tannhof , BEE PRODUCER-C Primary Care Provider Active Start: December 15, 2024 End: December 15, 2024 Josydominique Baumannhof , BEE PRODUCER-C Attending Provider Active Start: December 15, 2024 End: December 15, 2024 Josy Tannhof , BEE PRODUCER-C Referring Provider Active Start: December 15, 2024 End: December 15, 2024 Team Status: Inactive Member Role/Relationship Status Dates Josydominique Baumannhof , BEE PRODUCER-C Primary Care Provider Active Start: December 26, 2024 End: December 26, 2024 Dr. Boone Carvajal DO Attending Provider Active Start: December 26, 2024 End: December 26, 2024 Dr. Boone Carvajal DO Emergency Provider Active Start: December 26, 2024 End: December 26, 2024 Team Status: Inactive Member Role/Relationship Status Dates Josy Elias [employer] Primary Care Provider Active Start: December 30, 2024 End: December 30, 2024 Dr. Mina Blood DO Attending Provider Active Start: December 30, 2024 End: December 30, 2024 Dr. Mina Blood DO Emergency Provider Active Start: December 30, 2024 End: December 30, 2024 Team Status: Inactive Member Role/Relationship Status Dates Josy Elias [employer] Primary Care Provider Active Start: January 02, [...] Active Member Role/Relationship Status Dates Josy Elias [employer] Primary Care Provider Active Start: January 03, [...] Active Member Role/Relationship Status Dates Josy Elias [employer] Primary Care Provider Active Start: January 04, [...] Active Member Role/Relationship Status Dates Josy Elias [employer] Primary Care Provider Active Start: January 05, [...] Inactive Member Role/Relationship Status Dates Josy Elias [employer] Primary Care Provider Active Start: January 09, [...] Active Member Role/Relationship Status [facility] Active Start: January [...] Active Member Role/Relationship Status Dates Josy Elias [facility] Primary Care Provider Active Start: January 11, 2025 Dr. Breann Mendez DO Emergency Provider Active S tart: January 11, 2025 Dr. Yaritza Leo DO Admit Provider Active Start : January 11, 2025 Dr. Yaritza Leo DO Other Provider Active Start : January 11, 2025 Dr. Cielo Tovra MD Attending Provider Active Start: January 11, 2025 Dr. Cielo Tovar MD Other Provider Active St art: January 11, 2025 Dr. Jefferson Malave MD Other Provider Active St art: January 11, 2025 Team Status: Active Member Role/Relationship Status [facility] Active Start: [...] Active Member Role/Relationship Status Dates Josy Elias [employer] Primary Care Provider Active Start: January 15, [...] Active Member Role/Relationship Status Dates Josy Elias [employer] Primary Care Provider Active Start: January 16, [...] Active Member Role/Relationship Status Dates Josy Elias [employer] Primary Care Provider Active Start: January 17, [...] Active Member Role/Relationship Status Dates Josy Elias [employer] Primary Care Provider Active Start: January 18, [...] Active Member Role/Relationship Status Dates Josy Elias [employer] Primary Care Provider Active Start: January 20, [...] Status: Active Member Role/Relationship Status Dates Dr. Jerlad Sherwood MD Primary Care Provider Active Start: [...] Active Member Role/Relationship Status Dates Josy Elias [employer] Primary Care Provider Active Start: February 25, 2025 Dr. Herberth Carlson MD Emergency Provider Active Start: February 25, 2025 Dr. Kathie Powers MD Attending Provider Active Start: February 25, 2025 Team Status: Inactive Member Role/Relationship Status Dates Josy Elias [employer] Primary Care Provider Active Start: February 25, [...] Active Member Role/Relationship Status Dates Josy Elias [employer] Primary Care Provider Active Start: February 26, [...] Active Member Role/Relationship Status Dates Josy Elias [employer] Primary Care Provider Active Start: February 27, [...] Member Role/Relationship Status Dates Josy Elias , [employer] Primary Care Provider Active Start: March 04, 2025 End: March 04, 2025 MINDY CONTRERAS Attending Provider Active Start: [facility] 2024 End: March 04, 2025 MINDY CONTRERAS Referring Provider Active Start: [facility] 2024 End: March 04, 2025 Team Status: Inactive Member Role/Relationship Status Dates Josy Elias , [employer] Primary Care Provider Active Start: March 10, 2025 End: March 10, 2025 Josy Elias [employer] Referring Provider Active Start: March 10, 2025 End: March 10, 2025 Dr. Roby Balderas MD Attending Provider Active Start: March 10, 2025 End: March 10, 2025 Team Status: Inactive Member Role/Relationship Status Dates Josy Elias , [employer] Primary Care Provider Active Start: March 11, 2025 End: March 11, 2025 Dr. Alber Dunn MD Attending Provider Active S tart: March 11, 2025 End: March 11, 2025 Dr. Alber Dunn MD Emergency Provider Active S tart: March 11, 2025 End: March 11, 2025 Team Status: Inactive Member Role/Relationship Status Dates Josy Elias , [employer] Primary Care Provider Active Start: March 30, 2025 End: March 30, 2025 Dr. Roby Balderas MD Attending Provider Active Start: March 30, 2025 End: March 30, 2025 Dr. Roby Balderas MD Referring Provider Active Start: March 30, 2025 End: March 30, 2025 Team Status: Active Member Role/Relationship Status Dates Josy Elias [employer] Primary Care Provider Active Start: March 30, 2025 Dr. Roby Balderas MD Attending Provider Active Start: March 30, 2025 Dr. Roby Balderas MD Referring Provider Active Start: March 30, 2025 Dr. Roby Balderas MD Other Provider Active Start: March 30, 2025 Team Status: Inactive Member Role/Relationship Status Dates Josy Elias [employer] Primary Care Provider Active Start: April 03, 2025 End: April 03, 2025 Dr. Jose Fox MD Emergency Provider Active Sta rt: April 03, 2025 End: April 03, 2025 Team Status: Active Member Role/Relationship Status Dates Josy Elias [employer] Primary Care Provider Active Start: April 07, 2025 Dr. Rachel Joiner DO Emergency Provider Active Start: April 07, 2025 Dr. Maria Guadalupe Shore MD Attending Provider Active Start: April 07, 2025 Team Status: Active Member Role/Relationship Status Dates Josy Elias [employer] Primary Care Provider Active Start: April 07, 2025 Dr. Rachel Joiner DO Emergency Provider Active Start: April 07, 2025 Dr. Maria Guadalupe Shore MD Admit Provider Active St art: April 07, 2025 Dr. Maria Guadalupe Shore MD Attending Provider Active Start: April 07, 2025 Team Status: Inactive Member Role/Relationship Status Dates Josy Elias [employer] Primary Care Provider Active Start: April 07, [...] Member Role/Relationship Status Dates Josy Elias , [employer] Primary Care Provider Active Start: April 08, [...] Active Sta rt: April 10, 2025 Dr. iRck Carlin DO Other Provider Active S tart: April 10, 2025 (unrecognized sect ion and content) No Status Records FoundNo Status Records FoundNo Status Records FoundNo Status Records Found INFORMATION SOURCE (unrecogn ized section and content) DATE CREATED AUTHOR 10/10/2024 [facility] DATE CREATED AUTHOR AUTHOR'S ORGANIZ ATION 12/13/2024 [facility] DATE CREATED AUTHOR AUTHOR'S ORGANIZ ATION 02/18/2025 [facility] DATE CREATED AUTHOR AUTHOR'S ORGANIZ ATION 04/28/2025 [facility] Source Comments (unrecognize d section and content) In the event this informatio n is protected by the Federal Confidentiality of Alcohol and Drug Abuse Patient Records regulations: The Federal rules restrict any use of the information to criminally investigate or prosecute any alcohol or drug abuse patient.[facility] the event this information is protected by the Federal Confidentiality of Alcohol and Drug Abuse Patient Records regulations: The Federal rules restrict any use of the information to criminally investigate or prosecute any alcohol or drug abuse patient.[facility] the event this information is protected by the Federal Confidentiality of Alcohol and Drug Abuse Patient Records regulations: The Federal rules restrict any use of the information to criminally investigate or prosecute any alcohol or drug abuse patient.[facility] the event this information is protected by the Federal Confidentiality of Alcohol and Drug Abuse Patient Records regulations: The Federal rules restrict any use of the information to criminally investigate or prosecute any alcohol or drug abuse patient.[facility] the event this information is protected by the Federal Confidentiality of Alcohol and Drug Abuse Patient Records regulations: The Federal rules restrict any use of the information to criminally investigate or prosecute any alcohol or drug abuse patient.[facility] the event this information is protected by the Federal Confidentiality of Alcohol and Drug Abuse Patient Records regulations: The Federal rules restrict any use of the information to criminally investigate or prosecute any alcohol or drug abuse patient.[facility] the event this information is protected by the Federal Confidentiality of Alcohol and Drug Abuse Patient Records regulations: The Federal rules restrict any use of the information to criminally investigate or prosecute any alcohol or drug abuse patient.[facility] the event this information is protected by the Federal Confidentiality of Alcohol and Drug Abuse Patient Records regulations: The Federal rules restrict any use of the information to criminally investigate or prosecute any alcohol or drug abuse patient.[facility] the event this information is protected by the Federal Confidentiality of Alcohol and Drug Abuse Patient Records regulations: The Federal rules restrict any use of the information to criminally investigate or prosecute any alcohol or drug abuse patient.[facility] the event this information is protected by the Federal Confidentiality of Alcohol and Drug Abuse Patient Records regulations: The Federal rules restrict any use of the information to criminally investigate or prosecute any alcohol or drug abuse patient.[facility] the event this information is protected by the Federal Confidentiality of Alcohol and Drug Abuse Patient Records regulations: The Federal rules restrict any use of the information to criminally investigate or prosecute any alcohol or drug abuse patient.[facility] FOR RECORDS PERTAINING TO PATIENTS WHO [...] BE BASED ON THE PRIMARY CLINICAL RECORDS. Attributor [facility]. provides no warranty or guarantee of the accuracy or completeness of information in this document.
[2025-05-07] VITALS (10 sets, daily range): BP systolic 86–110; BP diastolic 53–67; PULSE 69–94; RESP 13–20; TEMP 36.3–37.1; O2SAT 94–99; BMI 28.3; BMI 28.6
--- OUTSIDE RECORDS SUMMARY | 2025-05-07 00:18 | XMS RPT_ITS | CCD ---
Author Organization [facility] Care Team Providers Care Case Planner Name Role Phone Sergey HERNANDEZ, Maurice Soria Primary Care Provider Care Physician, No Primary Primary Care Provider Unavailable Dr. Danny Hutton DO Attending Provider Dr. Danny Hutton DO Emergency Provider Dr. Luis Carlos Anderson DO Emergency Provider Mone HERNANDEZ, Dr. Maria Guadalupe Carlson Admit Provider [phone] Dr. Maria Guadalupe Shore MD Referring Provider Dr. Maria Guadalupe Shore MD Other Provider [phone] Rick Carlin DO Attending Provider Erin HERNANDEZ, Dr. Rocha Other Provider Zelalem HERNANDEZ, Dr. Coker Other Provider Dr. Christian Abdi MD Other Provider Dr. Juarez Baird MD Other Provider Dr. Bola Meraz DO Attending Provider Dr. Bola Meraz DO Other Provider Víctor HERNANDEZ, Dr. Hill Alcaraz Other Provider Ashli HERNANDEZ, Dr. Aguilar Other Provider Dr. Yury Canas MD Other Provider [phone] Ashely HERNANDEZ, Dr. Foote Other Provider [phone] Cassandra HERNANDEZ, Dr. Garvin Other Provider [phone] [...] Dr. Boone Izquierdo DO Other Provider DIANE GUILLEN Attending Provider BILLDIANE Parada Referring Provider BILLDIANE Parada Other Provider Bailee [employer]CRA[employer] LOADMASTER SUPERINTENDENT-C, Jasmine Attending Provider Shaun HERNANDEZ, Dr. Campo [...] Provider Dr. Bola Meraz DO Attending Provider [phone] Dr. Bola Meraz DO Other Provider Víctor HERNANDEZ, Dr. Hill Alcaraz Other Provider Ashli HERNANDEZ, Dr. Aguialr Other Provider Missael HERNANDEZ, Dr. Cotton Other Provider Ashely HERNANDEZ, Dr. Foote Other Provider Cassandra HERNANDEZ, Dr. Garvin Other Provider Yamil HERNANDEZ, Dr. Solis Other Provider [phone] Rojas HERNANDEZ, Dr. Enriquez Other Provider Seble HERNANDEZ, Dr. Hernández Other Provider Desmond HERNANDEZ, Dr. Snow Other [facility] Venegas MD, Dr. Whyte Other Provider [phone] Laurent HERNANDEZ, Dr. Raya Other Provider Angely HERNANDEZ, Dr. Silver Other Provider Jazmyne NOYOLA, Dr. Cuevas Other Provider Carmela HERNANDEZ, Dr. Tam Other Provider Mallorie HERNANDEZ, Dr. Kelly Other Provider Nuzhat NOYOLA, Dr. Cooper Other Provider Rosendo HERNANDEZ, Dr. Wesley Other Provider Dylan HERNANDEZ, Dr. Colon Other Provider Dr. Rick Carlin DO Other Provider Dr. Niranjan Li DO Attending Provider Dr. Rachel oJiner DO Emergency Provider Caro DO, Dr. Alejandre [...] Dr. Boone Izquierdo DO Other Provider DIANE GUILLEN Attending Provider BILLDIANE Parada Referring Provider BILLDIANE Parada Other Provider Bailee [employer]CRA[employer] LOADMASTER SUPERINTENDENT-C, Jasmine Attending Provider Shaun HERNANDEZ, Dr. Campo [...] Dr. Scott Weston DO Other Provider Elie [employer] LOADMASTER SUPERINTENDENT-C, Yue Other Provider Caro DO, Dr. Alejandre Referring Provider Unav ailable Shila HERNANDEZ, Dr. Buster Barr Attending Provider Dr. Buster Fuchs MD Referring Provider Dr. Hill Acuña MD Attending Provider Unavaila priscila Lemos MD, Dr. Vázquez Other Provider Unavailable Primary Care Provider Radha Carlson MD, Dr. Kevin Emergency Provider Nilsa NOYOLA, Dr. Rowe Admit Provider Gio HERNANDEZ, Dr. Vázquez Admit Provider Tannhof [employer] LOADMASTER SUPERINTENDENT-C, Josy Primary Care Provider Tannhof [employer] LOADMASTER SUPERINTENDENT-C, Josy Attending Provider KATHIE LEMOS Referring Unavailable DAY PRICE Admitting Unavailable YOUNG CRUZ Attending Unavailable Care Physician, No Primary Primary Care Provider Unavailable Curt [employer] LOADMASTER SUPERINTENDENT-C, Josy Referring Provider Wei NOYOLA, Dr. Shook Emergency Provider Raegan NOYOLA, Dr. Cabrera Other Provider Jen NOYOLA, Dr. Ureña Attending Provider Zelalem HERNANDEZ, Dr. Coker Other Provider Trinidad HERNANDEZ, Dr. Gonzales Other Provider Oli HERNANDEZ, Dr. Pizarro Other Provider Kt NOYOLA, Dr. Plaza Attending Provider Kt NOYOLA, Dr. Plaza Other Provider Víctor HERNANDEZ, Dr. Hill Alcaraz Other Provider [phone] Ashli HERNANDEZ, Dr. Aguilar Other Provider Missael HERNANDEZ, Dr. Cotton Other Provider Ashely HERNANDEZ, Dr. Foote Other Provider Cassandra HERNANDEZ, Dr. Garvin Other Provider Dr. Will Lobo MD Other Provider Dr. Mina Xie MD Other Provider Seble HERNANDEZ, Dr. Hernández Other Provider Desmond HERNANDEZ, Dr. Snow Other Provider [facility] Venegas MD, Dr. Whyte Other Provider Laurent HERNANDEZ, Dr. Raya Other Provider [phone] [place] [address] Performed By: #### 2 4356-8, 630-4 ####[facility] LABCLIA [id number] [place] [address] [place] Epithelial cells LM.HPF (Urine sed) [#/Area] None Seen Normal [facility] Comment on above: Order Comment: Speci men Type: URINE SPECIMENOrdering Facility: [facility] [place] Address: [address] [place] [address] Performed By: #### 2 4356-8, 630-4 ####[facility] LABCLIA [id number] [address], [place] [facility] [place] Glucose Test strip (U) [Mass/Vol] Negative Normal Negative [facility] Comment on above: Order Comment: Speci men Type: URINE SPECIMENOrdering Facility: [facility] [place] Address: [address] [place] [address] Performed By: #### 2 4356-8, 630-4 ####[facility] LABCLIA [id number] [address], [place] [address] [place] Hemoglobin Ql (U) 2+ Abnormal Negative [facility] Comment on above: Order Comment: Speci men Type: URINE SPECIMENOrdering Facility: [facility] [place] Address: [address] [place] [address] Performed By: #### 2 4356-8, 630-4 ####[facility] LABCLIA [id number] [address], [place] [address] [place] Hyaline casts (Urine sed) [#/Area] 0 /[LPF] Normal 0 /LPF [facility] Comment on above: Order Comment: Speci men Type: URINE SPECIMENOrdering Facility: [facility] [place] Address: [address] [place] [address] Performed By: #### 2 4356-8, 630-4 ####[facility] LABCLIA [id number] [place] [address] [place] Ketones Ql (U) Negative Normal Negative [facility] Comment on above: Order Comment: Speci men Type: URINE SPECIMENOrdering Facility: [facility] [place] Address: [address] [place] [address] Performed By: #### 2 4356-8, 630-4 ####[facility] LABCLIA [id number] [facility] [id number] [address] [place] Leukocyte esterase Test strip Ql (U) 3+ Abnormal Negative [facility] Comment on above: Order Comment: Speci men Type: URINE SPECIMENOrdering Facility: [facility] [place] Address: [address] [place] [address] Performed By: #### 2 4356-8, 630-4 ####[facility] LABCLIA [id number] [facility] [address], [place] [address] [place] Nitrite Ql (U) Negative Normal Negative [facility] Comment on above: Order Comment: Speci men Type: URINE SPECIMENOrdering Facility: [facility] [place] Address: [address] [place] [address] Result Comment: Resu lt rechecked. Performed By: #### 2 43568, 4 ####[facility] LABCLIA [id number] [address], [place] [address] [place] pH (U) 5.0 [pH] Normal <8.5 [facility] Comment on above: Order Comment: Speci men Type: URINE SPECIMENOrdering Facility: [facility] [place] Address: [address] [place] [address] Performed By: #### 2 43568, 4 ####[facility] LABCLIA [id number] [address], [place] [address] [place] Protein (U) [Mass/Vol] 2+ Abnormal Negative Cl [facility] Comment on above: Order Comment: Speci men Type: URINE SPECIMENOrdering Facility: [facility] [place] Address: [address] [place] [address] Performed By: #### 2 4356-8, 630-4 ####[facility] LABCLIA [id number] [facility] [place] [id number] [address] [place] RBC LM.HPF (Urine sed) [#/Area] /[HPF] Abnormal 0-2 /HPF [facility] Comment on above: Order Comment: Speci men Type: URINE SPECIMENOrdering Facility: [facility] [place] Address: [address] [place] [address] Performed By: #### 2 4356-8, 630-4 ####[facility] LABIA [id number] [place] [address] [place] Specific gravity (U) [Rel density] 1.021 Normal 1.005-1.030 [facility] Comment on above: Order Comment: Speci men Type: URINE SPECIMENOrdering Facility: [facility] [place] Address: [address] [place] [address] Performed By: #### 2 4356-8, 630-4 ####[facility] LABIA [id number] [place] [address] [place] Urobilinogen Ql (U) 0.2 EU/dL Normal 0.2-1.0 EU/dL [facility] Comment on above: Order Comment: Speci men Type: URINE SPECIMENOrdering Facility: [facility] [place] Address: [address] [place] [address] Performed By: #### 2 4356-8, 630-4 ####[facility] LABIA [id number] [place] [address] [place] WBC LM.HPF (Urine sed) [#/Area] /[HPF] Abnormal 0-5 /HPF [facility] Comment on above: Order Comment: Speci men Type: URINE SPECIMENOrdering Facility: [facility] [place] Address: [address] [place] [address] Performed By: #### 2 4356-8, 630-4 ####[facility] LABIA [id number] [place] [address] [place] Yeast.budding LM.HPF (Urine sed) [#/Area] Present Abnormal None Seen [facility] Comment on above: Order Comment: Speci men Type: URINE SPECIMENOrdering Facility: [facility] [place] Address: [address] [place], [place] [address] Performed By: #### 2 4356-8, 630-4 ####[facility] LABIA [id number] [address] [address] [place] Basic metabolic 2000 panelon 11-17-2024 Anion gap [Moles/Vol] 10 mmol/L Normal 8-15 [facility] Comment on above: Order Comment: Speci men Type: BLOOD SPECIMENOrdering Facility: [facility] [place] Address: [address] [place], [place] [address] Performed By: #### 2 4321-2, 87148-5, 2777-1 ####[facility] LABIA [id number] [address] [address] [place] Calcium [Mass/Vol] 8.9 mg/dL Normal 8.5-10.2 [facility] Comment on above: Order Comment: Speci men Type: BLOOD SPECIMENOrdering Facility: [facility] [place] Address: [address] [place], [place] [address] Performed By: #### 2 4321-2, 02436-8, 2777-1 ####[facility] LABIA [id number] [place] [address] [place] Chloride [Moles/Vol] 105 mmol/L Normal 98-107 [facility] Comment on above: Order Comment: Speci men Type: BLOOD SPECIMENOrdering Facility: [facility] [place] Address: [address] [place] [address] Performed By: #### 2 4321-2, 65052-3, 2777-1 ####[facility] LABIA [id number] [address] [address] [place] CO2 [Moles/Vol] 17 mmol/L Low 22-30 [facility] Comment on above: Order Comment: Speci men Type: BLOOD SPECIMENOrdering Facility: [facility] [place] Address: [address] [place] [address] Performed By: #### 2 4321-2, 20743-2, 2776- ####[facility] LABIA [id number] [address] [address] [place] Creatinine [Mass/Vol] 0.77 mg/dL Normal 0.73-1.22 [facility] Comment on above: Order Comment: Speci men Type: BLOOD SPECIMENOrdering Facility: [facility] [place] Address: [address] [place] [address] Performed By: #### 2 4321-2, 20495-3, 2776- ####[facility] [id number] [place] [address] [place] Creatinine and Glomerular filtration rate.predicted panel (S/P/Bld) 104 mL/min/1.73m??? Normal >=60 [facility] Comment on above: Order Comment: Ezekiel ramirez Type: BLOOD SPECIMENOrdering Facility: [facility] [place] Address: [address] [place] [address] Result Comment: Patric mated Glomerular Filtration Rate [...] actual GFR. Performed By: #### 2 4321-2, 54366-0, 2776- ####[facility] LABIA [id number] [address] [address] [place] Glucose [Mass/Vol] 291 mg/dL High 74-99 [facility] Comment on above: Order Comment: Meggani james Type: BLOOD SPECIMENOrdering Facility: [facility] [place] Address: [address] [place] [address] Result Comment: The [place] Diabetes Association (ADA) provides guidance for cutoff [...] Standards of Medical Care in Diabetes 2016, [place] [employer]. Diabetes Care. 2016.39(Suppl 1). Performed By: #### 2 4321-2, 96362-6, 2776- ####[facility] LABIA [id number] [place] [address] [place] Potassium [Moles/Vol] 4.5 mmol/L Normal 3.7-5.1 [facility] Comment on above: Order Comment: Speci men Type: BLOOD SPECIMENOrdering Facility: [facility] [place] Address: [address] [place] [address] Performed By: #### 2 432-2, 49135-1, 2776-08 ####[facility] [id number] [place] [address] [place] Sodium [Moles/Vol] 132 mmol/L Low 136-144 [facility] Comment on above: Order Comment: Speci men Type: BLOOD SPECIMENOrdering Facility: [facility] [place] Address: [address] [place] [address] Performed By: #### 2 432-2, 13752-7, 2776-08 ####[facility] LABIA [id number] [place] [address] [place] Urea nitrogen [Mass/Vol] 9 mg/dL Normal 9-24 [facility] Comment on above: Order Comment: Speci men Type: BLOOD SPECIMENOrdering Facility: [facility] [place] Address: [address] [place] [address] Performed By: #### 2 432-2, 42548-2, 2777-1 ####[facility] LABCLIA [id number] [facility] [address] [place] [address] [place] CASE MANAGEMon 11-17-2024 CASE MANAGEM Normal [facility] CBC W Auto Differential pane l (Bld)on 11-17-2024 Basophils (Bld) [#/Vol] 10*3/uL Normal <0.11 C [facility] Comment on above: Order Comment: Speci men Type: BLOOD SPECIMENOrdering Facility: [facility] [place] Address: [address] [place] [address] Performed By: #### 5 7021-8 ####[facility] LABCLIA [id number] [address], [facility]95 [place] Basophils/100 WBC (Bld) 0.0 % Normal C [facility] Comment on above: Order Comment: Speci men Type: BLOOD SPECIMENOrdering Facility: [facility] [place] Address: [address] [place] [address] Performed By: #### 5 7021-8 ####[facility] LABCLIA [id number] [address], [facility]95 [place] Differential cell count method Nom (Bld) Auto Normal [facility] Comment on above: Order Comment: Speci men Type: BLOOD SPECIMENOrdering Facility: [facility] [place] Address: [address] [place] [address] Performed By: #### 5 7021-8 ####[facility] LABCLIA [id number] [address] [place] [address] [place] Eosinophils (Bld) [#/Vol] 10*3/uL Normal <0.46 [facility] Comment on above: Order Comment: Speci men Type: BLOOD SPECIMENOrdering Facility: [facility] [place] Address: [address] [place] [address] Performed By: #### 5 7021-8 ####[facility] LABCLIA [id number] [facility] [address] [place] [address] [place] Eosinophils/100 WBC (Bld) 0.0 % Normal [facility] Comment on above: Order Comment: Speci men Type: BLOOD SPECIMENOrdering Facility: [facility] [place] Address: [address] [place] [address] Performed By: #### 5 7021-8 ####[facility] LABCLIA [id number] [place] [address] [place] Erythrocyte distribution width (RBC) [Ratio] 16.9 % High 11.5-15.0 [facility] Comment on above: Order Comment: Speci men Type: BLOOD SPECIMENOrdering Facility: [facility] [place] Address: [address] [place] [address] Performed By: #### 5 7021-8 ####[facility] LABIA [id number] [place] [address] [place] Hematocrit (Bld) [Volume fraction] 22.7 % Low 39.0-51.0 [facility] Comment on above: Order Comment: Speci men Type: BLOOD SPECIMENOrdering Facility: [facility] [place] Address: [address] [place] [address] Performed By: #### 5 7021-8 ####[facility] LABIA [id number] [address] [place] Hemoglobin (Bld) [Mass/Vol] 7.7 g/dL Low 13.0-17.0 [facility] Comment on above: Order Comment: Speci men Type: BLOOD SPECIMENOrdering Facility: [facility] [place] Address: [address] [place] [address] Performed By: #### 5 7021-8 ####[facility] LABCLIA [id number] [place] [address] [place] Immature granulocytes (Bld) [#/Vol] 0.03 10*3/uL Normal <0.10 [facility] Comment on above: Order Comment: Speci men Type: BLOOD SPECIMENOrdering Facility: [facility] [place] Address: [address] [place] [address] Performed By: #### 5 7021-8 ####[facility] LABCLIA [id number] [place] [address] [place] [facility] Immature granulocytes/100 WBC (Bld) 0.9 % Normal [facility] Comment on above: Order Comment: Speci men Type: BLOOD SPECIMENOrdering Facility: [facility] [place] Address: [address] [place] [address] Performed By: #### 5 7021-8 ####[facility] LABIA [id number] [place] [address] [place] Lymphocytes (Bld) [#/Vol] 0.28 10*3/uL Low 1.00-4.00 [facility] Comment on above: Order Comment: Speci men Type: BLOOD SPECIMENOrdering Facility: [facility] [place] Address: [address] [place] [address] Performed By: #### 5 7021-8 ####[facility] LABIA [id number] [place] [address] [place] Lymphocytes/100 WBC (Bld) 8.3 % Normal [facility] Comment on above: Order Comment: Speci men Type: BLOOD SPECIMENOrdering Facility: [facility] [place] Address: [address] [place] [address] Performed By: #### 5 7021-8 ####[facility] LABIA [id number] [place] [address] [place] MCH (RBC) [Entitic mass] 31.7 pg Normal 26.0-34.0 [facility] Comment on above: Order Comment: Speci men Type: BLOOD SPECIMENOrdering Facility: [facility] [place] Address: [address] [place] [address] Performed By: #### 5 7021-8 ####[facility] LABIA [id number] [place] [address] [place] MCHC (RBC) [Mass/Vol] 33.9 g/dL Normal 30.5-36.0 [facility] Comment on above: Order Comment: Speci men Type: BLOOD SPECIMENOrdering Facility: [facility] [place] Address: [address] [place] [address] Performed By: #### 5 7021-8 ####[facility] LABIA [id number] [place] [address] [place] MCV (RBC) [Entitic vol] 93.4 fL Normal 80.0-100.0 C [facility] Comment on above: Order Comment: Speci men Type: BLOOD SPECIMENOrdering Facility: [facility] [place] Address: [address] [place] [address] Performed By: #### 5 7021-8 ####[facility] LABCLIA [id number] [place] [address] [place] Monocytes (Bld) [#/Vol] 0.17 10*3/uL Normal <0.87 [facility] Comment on above: Order Comment: Speci men Type: BLOOD SPECIMENOrdering Facility: [facility] [place] Address: [address] [place] [address] Performed By: #### 5 7021-8 ####[facility] LABIA [id number] [address] [place] Monocytes/100 WBC (Bld) 5.0 % Normal [facility] Comment on above: Order Comment: Speci men Type: BLOOD SPECIMENOrdering Facility: [facility] [place] Address: [address] [place] [address] Performed By: #### 5 7021-8 ####[facility] LABCLIA [id number] [place] [address] [place] Neutrophils (Bld) [#/Vol] 2.89 10*3/uL Normal 1.45-7.50 [facility] Comment on above: Order Comment: Speci men Type: BLOOD SPECIMENOrdering Facility: [facility] [place] Address: [address] [place] [address] Performed By: #### 5 7021-8 ####[facility] LABCLIA [id number] [place] [address] [place] Neutrophils/100 WBC (Bld) 85.8 % Normal [facility] Comment on above: Order Comment: Speci men Type: BLOOD SPECIMENOrdering Facility: [facility] [place] Address: [address] [place] [address] Performed By: #### 5 7021-8 ####[facility] LABCLIA [id number] [place] [address] [place] Nucleated RBC (Bld) [#/Vol] 10*3/uL Normal <0.01 [facility] Comment on above: Order Comment: Speci men Type: BLOOD SPECIMENOrdering Facility: [facility] [place] Address: [address] [place] [address] Performed By: #### 5 7021-8 ####[facility] LABIA [id number] [place] [address] [place] Nucleated RBC/100 WBC (Bld) [Ratio] 0.0 /100 WBC Normal [facility] Comment on above: Order Comment: Speci men Type: BLOOD SPECIMENOrdering Facility: [facility] [place] Address: [address] [place] [address] Performed By: #### 5 7021-8 ####[facility] LABCLIA [id number] [place] [id number] [place] Platelet mean volume (Bld) [Entitic vol] 12.0 fL Normal 9.0-12.7 [facility] Comment on above: Order Comment: Speci men Type: BLOOD SPECIMENOrdering Facility: [facility] [place] Address: [address] [place] [address] Performed By: #### 5 7021-8 ####[facility] LABCLIA [id number] [place] [address] [place] Platelets (Bld) [#/Vol] 57 10*3/uL Low 150-400 C [facility] Comment on above: Order Comment: Speci men Type: BLOOD SPECIMENOrdering Facility: [facility] [place] Address: [address] [place] [address] Performed By: #### 5 7021-8 ####[facility] [id number] [place] [address] [place] RBC (Bld) [#/Vol] 2.43 10*6/uL Low 4.20-6.00 [facility] Comment on above: Order Comment: Speci men Type: BLOOD SPECIMENOrdering Facility: [facility] [place] Address: [address] [place] [address] Performed By: #### 5 7021-8 ####[facility] [id number] [place] [address] [place] WBC (Bld) [#/Vol] 3.37 10*3/uL Low 3.70-11.00 [facility] Comment on above: Order Comment: Speci men Type: BLOOD SPECIMENOrdering Facility: [facility] [place] Address: [address] [place] [address] Performed By: #### 5 7021-8 ####[facility] [id number] [place] [address] [place] CONSULT PROGon 11-17-2024 CONSULT PROG Normal [facility] Fact Xa PPP-aCncon Coagulation factor X activated act Coag Qn (PPP) <0.10 Normal <0.10 [facility] Comment on above: Order Comment: Speci men Type: BLOOD SPECIMENOrdering Facility: [facility] [place] Address: [address] [place] [address] Result Comment: The recommended therapeutic range for treatment of venous and arterial thrombosis with intravenous unfractionated heparin is an anti Xa activity level of 0.3 to 0.7 IU/mL. In patients with concomitant therapy with thrombolytic agents and/or platelet glycoprotein IIb/IIIa antagonists, the recommended therapeutic range is an anti Xa activity level of 0.2 to 0.5 IU/mL. Performed By: #### 3 217-7 ####[facility] LABCLIA [id number] [facility] [address] [place] [address] [place] Fibrinogen PPP-mCncon 2024 Fibrinogen Coag (PPP) [Mass/Vol] 114 mg/dL Low 200-400 [facility] Comment on above: Order Comment: Ezekiel ramirez Type: BLOOD SPECIMENOrdering Facility: [facility] [place] Address: [address] [place] [address] Performed By: #### 3 255-7, 93958-8 ####[facility] LABIA [id number] [address], [facility]95 [place] Hepatic function 2000 panelo n 11-17-2024 Albumin [Mass/Vol] 2.7 g/dL Low 3.9-4.9 [facility] Comment on above: Order Comment: Ezekiel ramirez Type: BLOOD SPECIMENOrdering Facility: [facility] [place] Address: [address] [place] [address] Performed By: #### 2 4321-2, 58337-8, 2777-1 ####[facility] LABIA [id number] [place] [address] [place] ALP [Catalytic activity/Vol] 276 U/L High 38-113 [facility] Comment on above: Order Comment: Ezekiel ramirez Type: BLOOD SPECIMENOrdering Facility: [facility] [place] Address: [address] [place] [address] Performed By: #### 2 4321-2, 16533-3, 2777-1 ####[facility] LABIA [id number] [address] [place] [address] [place] ALT [Catalytic activity/Vol] 35 U/L Normal 10-54 [facility] Comment on above: Order Comment: Speci men Type: BLOOD SPECIMENOrdering Facility: [facility] [place] Address: [address] [place] [address] Performed By: #### 2 4321-2, 88480-2, 2776-08 ####[facility] LABCLIA [id number] [address] [address] [place] AST [Catalytic activity/Vol] 80 U/L High 14-40 [facility] Comment on above: Order Comment: Speci men Type: BLOOD SPECIMENOrdering Facility: [facility] [place] Address: [address] [place] [address] Performed By: #### 2 4321-2, 86715-5, 2776-08 ####[facility] LABCLIA [id number] [place] [address] [place] Bilirubin [Mass/Vol] 1.8 mg/dL High 0.2-1.3 [facility] Comment on above: Order Comment: Speci men Type: BLOOD SPECIMENOrdering Facility: [facility] [place] Address: [address] [place] [address] Performed By: #### 2 4321-2, 03839-1, 2776-08 ####[facility] LABCLIA [id number] [place] [address] [place] Bilirubin.conjugated [Mass/Vol] 1.0 mg/dL High <0.3 [facility] Comment on above: Order Comment: Speci men Type: BLOOD SPECIMENOrdering Facility: [facility] [place] Address: [address] [place], [place] [address] Performed By: #### 2 4321-2, 26448-5, 2776-08 ####[facility] LABCLIA [id number] [address] [address] [place] Protein [Mass/Vol] 5.2 g/dL Low 6.3-8.0 [facility] Comment on above: Order Comment: Speci men Type: BLOOD SPECIMENOrdering Facility: [facility] [place] Address: [address] [place] [address] Performed By: #### 2 4321-2, 52995-6, 2777-1 ####[facility] LABCLIA [id number] [place] [address] [place] NUTRITIONon 11-17-2024 NUTRITION Normal [facility] PSA/PROSTATE SPECIFIC ANTIGE N SCREENINGon 11-17-2024 Prostate specific Ag [Mass/Vol] 0.52 ng/mL Normal <2.60 [facility] Comment on above: Order Comment: Speci men Type: BLOOD SPECIMENOrdering Facility: [facility] [place] Address: [address] [place] [address] Result Comment: Tota l PSA test methodology used is the Electrochemiluminescence Immunoassay by [employer]. Total PSA values by differing methodologies cannot be interchanged. Performed By: #### P SAS1 ####[facility] LABCLIA [id number] [place] [address] [place] PT panel Coag (PPP)on 2024 INR Coag (PPP) [Relative time] 2.0 {INR} High 0.9-1.3 [facility] Comment on above: Order Comment: Speci men Type: BLOOD SPECIMENOrdering Facility: [facility] [place] Address: [address] [place] [address] Result Comment: Sarah min K Antagonist (VKA) Therapeutic Range: INR 2 to 3 (Target INR of 2.5)Note: For patients treated with VKA drugs, such as warfarin, the [place] [employer] 2012 Guideline recommends [...] al. Chest 2012, 141:7S-47SHector RA, et al. [facility] 2017, 70: 252-289 Performed By: #### 3 255-7, 89109-2 ####[facility] LABCLIA [id number] [place] [address] [place] PT Coag (PPP) [Time] 20.6 s High 9.7-13.0 [facility] Comment on above: Order Comment: Speci men Type: BLOOD SPECIMENOrdering Facility: [facility] [place] Address: [address] [place] [address] Performed By: #### 3 255-7, 93186-5 ####[facility] LABIA [id number] [place] [address] [place] PTT, ANTICOAGULANT THERAPYon 11-17-2024 aPTT Coag (PPP) [Time] 41.6 s High 23.0-32.4 [facility] Comment on above: Order Comment: Speci men Type: BLOOD SPECIMENOrdering Facility: [facility] [place] Address: [address] [place] [address] Performed By: #### P [facility] ####[facility] [id number] [place] [address] [place] Phosphate SerPl-mCncon 11-17 Phosphate [Mass/Vol] 1.9 mg/dL Low 2.7-4.8 [facility] Comment on above: Order Comment: Speci men Type: BLOOD SPECIMENOrdering Facility: [facility] [place] Address: [address] [place] [address] Performed By: #### 2 4321-2, 06632-4, 2777-1 ####[facility] LABIA [id number] [place] [address] [place] THERAPY NTon 11-17-2024 THERAPY NT Normal [facility] aPTT PPPon 11-17-2024 aPTT Coag (PPP) [Time] s High 23.0-32.4 Cl [facility] Comment on above: Order Comment: Ezekiel ramirez Type: BLOOD SPECIMENOrdering Facility: [facility] [place] Address: [address] [place] [address] Result Comment: Resu lt rechecked.Sample checked for clot. Performed By: #### 1 4979-9, PTTAC ####[facility] LABCLIA [id number] [address] [place] ANES POSTPROC EVALon 025 ANES POSTPROC EVAL Normal [facility] ANES PRE-OPon 11-16-2024 ANES PRE-OP Normal [facility] Albumin Fld-mCncon 5 Albumin (Body fld) [Mass/Vol] 0.2 g/dL Normal See Comment [facility] Comment on above: Order Comment: Ezekiel ramirez Type: FLUID SPECIMENOrdering Facility: [facility] [place] Address: [address] [place] [address] Result Comment: Body Fluid Albumin may be [...] document C49A. Joe, [place]: Clinical Laboratory Standards [place]: 2007.2. Amy JACKSON. Serum to ascites albumin gradient. UpToDate. 2015. Accessed on November 15, 2015.This test was developed, and its performance characteristics determined by the [facility] Department of Pathology and Laboratory Medicine. It has not been cleared or approved by the FDA. The [facility] Department of Pathology and Laboratory Medicine is regulated under CLIA as qualified to perform high-complexity testing. This test is used for clinical purposes. It should not be regarded as investigational or for research. Performed By: #### 1 795-4, 2881-1, 1747-5 ####[facility] LABCLIA [id number] [address] [place] Fluid Nom (Body fld) Ascites Fluid Normal C [facility] Comment on above: Order Comment: Speci men Type: FLUID SPECIMENOrdering Facility: [facility] [place] Address: [address] [place] [address] Performed By: #### 1 795-4, 2881-1, 1747-5 ####[facility] LABCLIA [id number] [address] Amylase Fld-cCncon 5 Amylase (Body fld) [Catalytic activity/Vol] 17 U/L Normal See Comment [facility] Comment on above: Order Comment: Speci men Type: FLUID SPECIMENOrdering Facility: [facility] [place] Address: [address] [place] [address] Result Comment: PLEU RAL FLUIDS:Amylase measurement in [...] in Clinical Chemistry; Approved Guideline. CLSI document C49-PAULETTE Watkins: Clinical Laboratory Standards [place]; 2007.3. Kelby CL, John RC, Star DJ. Use of cyst fluid CEA, CA19-9, and amylase for evaluation of pancreatic lesions. Clinical Biochemistry. 2009;42:6894-4261.This test was developed, and its performance characteristics determined by the [facility] Department of Pathology and Laboratory Medicine. It has not been cleared or approved by the FDA. The [facility] Department of Pathology and Laboratory Medicine is regulated under CLIA as qualified to perform high-complexity testing. This test is used for clinical purposes. It should not be regarded as investigational or for research. Performed By: #### 1 795-4, 2881-1, 1747-5 ####[facility] LABCLIA [id number] [place] [address] [place] BODY FLUID CELL COUNTon 04-1 Clarity (Unsp spec) Clear Normal Clear [facility] Comment on above: Order Comment: Speci men Type: FLUID SPECIMENOrdering Facility: [facility] [place] Address: [address] [place] [address] Performed By: #### C CBF, [id number] ####[facility] LABCLIA [id number] [place] [address] [place] Color (Body fld) Yellow Normal Yellow [facility] Comment on above: Order Comment: Speci men Type: FLUID SPECIMENOrdering Facility: [facility] [place] Address: [address] [place] [address] Performed By: #### C CBF, [id number] ####[facility] LABCLIA [id number] [address] [address] [place] RBC Manual cnt (Body fld) [#/Vol] 3000 /uL High <2000 [facility] Comment on above: Order Comment: Speci men Type: FLUID SPECIMENOrdering Facility: [facility] [place] Address: [address] [place] [address] Performed By: #### C CBF, [id number] ####[facility] LABCLIA [id number] [place] [address] [place] Specimen source Nom (Body fld) Ascites Fluid Normal [facility] Comment on above: Order Comment: Speci men Type: FLUID SPECIMENOrdering Facility: [facility] [place] Address: [address] [place] [address] Performed By: #### C CBF, [id number] ####[facility] LABCLIA [id number] [place] [address] [place] WBC Manual cnt (Body fld) [#/Vol] 58 /uL Normal <1000 [facility] Comment on above: Order Comment: Speci men Type: FLUID SPECIMENOrdering Facility: [facility] [place] Address: [address] [place] [address] Performed By: #### C CBF, [id number] ####[facility] LABCLIA [id number] [place] [address] [place] Bacteria Fld Culton 11-17-19 25 Bacteria identified Cx Nom (Body fld) CULTURE, BODY FLD: No growth GRAM STAIN: No organisms seen Few Polymorphonuclear leukocytes Gram stain performed on cytospun specimen. Gram stain from primary specimen Normal [facility] Comment on above: Performed By: #### 6 35-3, 611-4 ####[facility] LABIA [id number] [place] [address] [place] Bacteria Spec Anaerobe Culto n 11-16-2024 Bacteria identified Anaer cx Nom (Unsp spec) Negative Normal [facility] Comment on above: Performed By: #### 6 35-3, 611-4 ####[facility] LABCLIA [id number] [place] [id number] [place] Basic metabolic 2000 panelon 11-16-2024 Anion gap [Moles/Vol] 10 mmol/L Normal 8-15 [facility] Comment on above: Order Comment: Speci men Type: BLOOD SPECIMENOrdering Facility: [facility] [place] Address: [address] [place] [id number] Performed By: #### 2 4321-2, 90715-2, 2776-08 ####[facility] LABCLIA [id number] [place] [address] [place] Calcium [Mass/Vol] 8.4 mg/dL Low 8.5-10.2 [facility] Comment on above: Order Comment: Speci men Type: BLOOD SPECIMENOrdering Facility: [facility] [place] Address: [address] [place] [address] Performed By: #### 2 4321-2, 19429-1, 2776-08 ####[facility] LABCLIA [id number] [place] [address] [place] Chloride [Moles/Vol] 102 mmol/L Normal 98-107 [facility] Comment on above: Order Comment: Speci men Type: BLOOD SPECIMENOrdering Facility: [facility] [place] Address: [address] [place] [address] Performed By: #### 2 4321-2, 24252-2, 2776-08 ####[facility] LABIA [id number] [place] [address] [place] CO2 [Moles/Vol] 18 mmol/L Low 22-30 [facility] Comment on above: Order Comment: Speci men Type: BLOOD SPECIMENOrdering Facility: [facility] [place] Address: [address] [place], [place] [address] Performed By: #### 2 4321-2, 29432-2, 2776-08 ####[facility] LABIA [id number] [place] [address] [place] Creatinine [Mass/Vol] 0.73 mg/dL Normal 0.73-1.22 [facility] Comment on above: Order Comment: Speci men Type: BLOOD SPECIMENOrdering Facility: [facility] [place] Address: [address] [place], [place] [address] Performed By: #### 2 4321-2, 63451-8, 2777-1 ####[facility] LABIA [id number] [place] [id number] [place] Creatinine and Glomerular filtration rate.predicted panel (S/P/Bld) 105 mL/min/1.73m??? Normal >=60 [facility] Comment on above: Order Comment: Ezekiel ramirez Type: BLOOD SPECIMENOrdering Facility: [facility] [place] Address: [address] [place] [address] Result Comment: Patric mated Glomerular Filtration Rate [...] actual GFR. Performed By: #### 2 4321-2, 00833-2, 277- ####[facility] LABIA [id number] [address] [address] [place] Glucose [Mass/Vol] 181 mg/dL High 74-99 [facility] Comment on above: Order Comment: Ezekiel ramirez Type: BLOOD SPECIMENOrdering Facility: [facility] [place] Address: [address] [place] [address] Result Comment: The [place] Diabetes Association (ADA) provides guidance for cutoff [...] Standards of Medical Care in Diabetes 2016, [place] [employer] Association. Diabetes Care. 2016.39(Suppl 1). Performed By: #### 2 4321-2, 66333-8, 2777- ####[facility] LABIA [id number] [place] [id number] [place] Potassium [Moles/Vol] 3.6 mmol/L Low 3.7-5.1 [facility] Comment on above: Order Comment: Speci men Type: BLOOD SPECIMENOrdering Facility: [facility] [place] Address: [address] [place] [address] Performed By: #### 2 4321-2, 82458-9, 277- ####[facility] LABIA [id number] [place] [address] [place] Sodium [Moles/Vol] 130 mmol/L Low 136-144 [facility] Comment on above: Order Comment: Speci men Type: BLOOD SPECIMENOrdering Facility: [facility] [place] Address: [address] [place] [address] Performed By: #### 2 4321-2, 39949-2, 27702-01 ####[facility] [id number] [place] [address] [place] Urea nitrogen [Mass/Vol] 9 mg/dL Normal 9-24 [facility] Comment on above: Order Comment: Speci men Type: BLOOD SPECIMENOrdering Facility: [facility] [place] Address: [address] [place] [address] Performed By: #### 2 4321-2, 15664-5, 27702-01 ####[facility] LABIA [id number] [place] [id number] [place] CBC W Auto Differential pane l (Bld)on 11-16-2024 Basophils (Bld) [#/Vol] 0.05 10*3/uL Normal <0.11 [facility] Comment on above: Order Comment: Speci men Type: BLOOD SPECIMENOrdering Facility: [facility] [place] Address: [address] [place] [address] Performed By: #### 5 7021-8 ####[facility] LABCLIA [id number] [facility] [address], [place] [address] [place] Basophils/100 WBC (Bld) 0.8 % Normal [facility] Comment on above: Order Comment: Speci men Type: BLOOD SPECIMENOrdering Facility: [facility] [place] Address: [address] [place] [address] Performed By: #### 5 7021-8 ####[facility] LABCLIA [id number] [address], [place] [address] [place] Differential cell count method Nom (Bld) Auto Normal [facility] Comment on above: Order Comment: Speci men Type: BLOOD SPECIMENOrdering Facility: [facility] [place] Address: [address] [place] [address] Performed By: #### 5 7021-8 ####[facility] LABCLIA [id number] [address], [place] [address] [place] Eosinophils (Bld) [#/Vol] 0.22 10*3/uL Normal <0.46 [facility] Comment on above: Order Comment: Speci men Type: BLOOD SPECIMENOrdering Facility: [facility] [place] Address: [address] [place] [address] Performed By: #### 5 7021-8 ####[facility] LABCLIA [id number] [address] [place] Eosinophils/100 WBC (Bld) 3.6 % Normal [facility] Comment on above: Order Comment: Speci men Type: BLOOD SPECIMENOrdering Facility: [facility] [place] Address: [address] [place] [address] Performed By: #### 5 7021-8 ####[facility] LABCLIA [id number] [address], [place] [address] [place] Erythrocyte distribution width (RBC) [Ratio] 16.7 % High 11.5-15.0 [facility] Comment on above: Order Comment: Speci men Type: BLOOD SPECIMENOrdering Facility: [facility] [place] Address: [address] [place] [address] Performed By: #### 5 7021-8 ####[facility] LABCLIA [id number] [place] [address] [place] Hematocrit (Bld) [Volume fraction] 24.0 % Low 39.0-51.0 [facility] Comment on above: Order Comment: Speci men Type: BLOOD SPECIMENOrdering Facility: [facility] [place] Address: [address] [place] [address] Performed By: #### 5 7021-8 ####[facility] LABIA [id number] [place] [address] [place] Hemoglobin (Bld) [Mass/Vol] 8.3 g/dL Low 13.0-17.0 [facility] Comment on above: Order Comment: Speci men Type: BLOOD SPECIMENOrdering Facility: [facility] [place] Address: [address] [place] [address] Performed By: #### 5 7021-8 ####[facility] LABIA [id number] [place] [address] [place] Immature granulocytes (Bld) [#/Vol] 0.05 10*3/uL Normal <0.10 [facility] Comment on above: Order Comment: Speci men Type: BLOOD SPECIMENOrdering Facility: [facility] [place] Address: [address] [place] [address] Performed By: #### 5 7021-8 ####[facility] LABCLIA [id number] [place] [address] [place] Immature granulocytes/100 WBC (Bld) 0.8 % Normal [facility] Comment on above: Order Comment: Speci men Type: BLOOD SPECIMENOrdering Facility: [facility] [place] Address: [address] [place] [address] Performed By: #### 5 7021-8 ####[facility] LABCLIA [id number] [place] [address] [place] Lymphocytes (Bld) [#/Vol] 0.75 10*3/uL Low 1.00-4.00 [facility] Comment on above: Order Comment: Speci men Type: BLOOD SPECIMENOrdering Facility: [facility] [place] Address: [address] [place] [address] Performed By: #### 5 7021-8 ####[facility] LABIA [id number] [place] [address] [place] Lymphocytes/100 WBC (Bld) 12.4 % Normal [facility] Comment on above: Order Comment: Speci men Type: BLOOD SPECIMENOrdering Facility: [facility] [place] Address: [address] [place] [address] Performed By: #### 5 7021-8 ####[facility] LABIA [id number] [place] [address] [place] MCH (RBC) [Entitic mass] 31.9 pg Normal 26.0-34.0 [facility] Comment on above: Order Comment: Speci men Type: BLOOD SPECIMENOrdering Facility: [facility] [place] Address: [address] [place] [address] Performed By: #### 5 7021-8 ####[facility] LABIA [id number] [place] [address] [place] MCHC (RBC) [Mass/Vol] 34.6 g/dL Normal 30.5-36.0 [facility] Comment on above: Order Comment: Speci men Type: BLOOD SPECIMENOrdering Facility: [facility] [place] Address: [address] [place] [address] Performed By: #### 5 7021-8 ####[facility] LABIA [id number] [place] [address] [place] MCV (RBC) [Entitic vol] 92.3 fL Normal 80.0-100.0 C [facility] Comment on above: Order Comment: Speci men Type: BLOOD SPECIMENOrdering Facility: [facility] [facility] [place] Address: [address] [place] [address] Performed By: #### 5 7021-8 ####[facility] LABCLIA [id number] [address] [address] [place] Monocytes (Bld) [#/Vol] 0.68 10*3/uL Normal <0.87 [facility] Comment on above: Order Comment: Speci men Type: BLOOD SPECIMENOrdering Facility: [facility] [place] Address: [address] [place] [address] Performed By: #### 5 7021-8 ####[facility] LABCLIA [id number] [place] [address] [place] Monocytes/100 WBC (Bld) 11.3 % Normal C [facility] Comment on above: Order Comment: Speci men Type: BLOOD SPECIMENOrdering Facility: [facility] [place] Address: [address] [place] [address] Performed By: #### 5 7021-8 ####[facility] LABCLIA [id number] [address], [facility]95 [place] Neutrophils (Bld) [#/Vol] 4.28 10*3/uL Normal 1.45-7.50 [facility] Comment on above: Order Comment: Speci men Type: BLOOD SPECIMENOrdering Facility: [facility] [place] Address: [address] [place] [address] Performed By: #### 5 7021-8 ####[facility] LABCLIA [id number] [place] [address] [place] Neutrophils/100 WBC (Bld) 71.1 % Normal [facility] Comment on above: Order Comment: Speci men Type: BLOOD SPECIMENOrdering Facility: [facility] [place] Address: [address] [place] [address] Performed By: #### 5 7021-8 ####[facility] LABCLIA [id number] [address], [place] [address] [place] Nucleated RBC (Bld) [#/Vol] 10*3/uL Normal <0.01 [facility] Comment on above: Order Comment: Speci men Type: BLOOD SPECIMENOrdering Facility: [facility] [place] Address: [address] [place] [address] Performed By: #### 5 7021-8 ####[facility] LABIA [id number] [address], [place] [address] [place] Nucleated RBC/100 WBC (Bld) [Ratio] 0.0 /100 WBC Normal [facility] Comment on above: Order Comment: Speci men Type: BLOOD SPECIMENOrdering Facility: [facility] [place] Address: [address] [place] [address] Performed By: #### 5 7021-8 ####[facility] LABIA [id number] [place] [address] [place] Platelet mean volume (Bld) [Entitic vol] 11.8 fL Normal 9.0-12.7 [facility] Comment on above: Order Comment: Speci men Type: BLOOD SPECIMENOrdering Facility: [facility] [place] Address: [address] [place] [address] Performed By: #### 5 7021-8 ####[facility] LABIA [id number] [place] [address] [place] Platelets (Bld) [#/Vol] 59 10*3/uL Low 150-400 C [facility] Comment on above: Order Comment: Speci men Type: BLOOD SPECIMENOrdering Facility: [facility] [place] Address: [address] [place] [address] Result Comment: No c lot detected.Results checked and verified. Performed By: #### 5 7021-8 ####[facility] LABIA [id number] [place] [address] [place] RBC (Bld) [#/Vol] 2.60 10*6/uL Low 4.20-6.00 [facility] Comment on above: Order Comment: Speci men Type: BLOOD SPECIMENOrdering Facility: [facility] [place] Address: [address] [place] [address] Performed By: #### 5 7021-8 ####[facility] LABCLIA [id number] [place] [address] [place] WBC (Bld) [#/Vol] 6.03 10*3/uL Normal 3.70-11.00 [facility] Comment on above: Order Comment: Speci men Type: BLOOD SPECIMENOrdering Facility: [facility] [place] Address: [address] [place] [address] Performed By: #### 5 7021-8 ####[facility] LABCLIA [id number] [place] [address] [place] CONSULT PROGon 11-16-2024 CONSULT PROG Normal [facility] CYTOLOGY NON-GYNon 5 AP DISCLAIMER Normal [facility] Comment on above: Order Comment: Speci men Type: FLUID SPECIMENOrdering Facility: [facility] [place] Address: [address] [place] [address] Result Comment: Shellie pugh Developed Test (LDT) Disclaimer:Performance characteristics of immunohistochemical, immunofluorescent, and chromogenic in-situ hybridization tests have been determined by the performing laboratory within [facility]'s [facility] Pathology and Laboratory Medicine Department ([facility], [facility], [facility], [facility], [facility], [facility], or [facility]) in a manner consistent with CLIA requirements. One or more of these tests may not have been cleared or approved by the FDA. [facility] is regulated under CLIA as qualified to perform high-complexity testing. These tests are used for clinical purposes. These should not be regarded as investigational or for research. Positive and negative controls stain appropriately. Performed By: #### C YTONON ####[facility] LABCLIA [id number] [place] [address] [place] CASE REPORT Normal [facility] Comment on above: Order Comment: Speci men Type: FLUID SPECIMENOrdering Facility: [facility] [place] Address: [address] [place] [address] Result Comment: [facility] Cytology Report Case: [id number] Provider: Young Cruz MD Collected: 11/16/2024 08:42 AMOrdering Location: [place] [address] Received: 11/16/2024 06:20 PMPathologist: Stefani Mcneal MDSpecimen: Peritoneal Fluid. Performed By: #### C YTONON ####[facility] LABCLIA [id number] [place] [address] [place] CLINICAL HISTORY Cirrhosis with ascites Normal [facility] Comment on above: Order Comment: Speci men Type: FLUID SPECIMENOrdering Facility: [facility] [place] Address: [address] [place] [address] Performed By: #### C YTONON ####[facility] LABCLIA [id number] [address] FINAL DIAGNOSIS Normal [facility] Comment on above: Order Comment: Speci men Type: FLUID SPECIMENOrdering Facility: [facility] [place] Address: [address] [place] [address] Result Comment: A - Peritoneal Fluid Negative for malignant cells. Chronic inflammation.The following cell blocks were associated with this case:A1 Cell Block, Alcohol Fixed at 1223 EDT Performed By: #### C YTONON ####[facility] LABCLIA [id number] [address] [place] FINAL PERFORMING LAB Normal [facility] Comment on above: Order Comment: Speci men Type: FLUID SPECIMENOrdering Facility: [facility] [place] Address: [address] [place] [address] Result Comment: Tech nical component, zinc skimmer screening performed at: [facility], [address] [place] [address] CLIA: [id number] interpretation performed at: [facility], [address] [place] [address] CLIA# [id number] Director: Titi Voss MD Performed By: #### C YTONON ####[facility] LABCLIA [id number] [place] [address] [place] GROSS DESCRIPTION Normal [facility] Comment on above: Order Comment: Speci men Type: FLUID SPECIMENOrdering Facility: [facility] [place] Address: [address] [place] [address] Result Comment: A. P eritoneal Fluid.1450 cc opaque red fluid . ThinPrep and Cell Block prepared. Performed By: #### C YTONON ####[facility] LABCLIA [id number] [place] [address] [place] ECG COMPLETEon 11-16-2024 ECG COMPLETE Normal [facility] Fibrinogen PPP-mCncon 2024 Fibrinogen Coag (PPP) [Mass/Vol] 127 mg/dL Low 200-400 [facility] Comment on above: Order Comment: Speci men Type: BLOOD SPECIMENOrdering Facility: [facility] [place] Address: [address] [place] [address] Performed By: #### 3 255-7, 21096-9 ####[facility] LABCLIA [id number] [place] [address] [place] Hepatic function 2000 panelo n 11-16-2024 Albumin [Mass/Vol] 2.8 g/dL Low 3.9-4.9 [facility] Comment on above: Order Comment: Speci men Type: BLOOD SPECIMENOrdering Facility: [facility] [place] Address: [address] [place] [address] Performed By: #### 2 4321-2, 34133-8, 2776- ####[facility] LABCLIA [id number] [address] [address] [place] ALP [Catalytic activity/Vol] 295 U/L High 38-113 [facility] Comment on above: Order Comment: Speci men Type: BLOOD SPECIMENOrdering Facility: [facility] [place] Address: [address] [place] [address] Performed By: #### 2 4321-2, 67263-1, 2776- ####[facility] LABCLIA [id number] [place] [address] [place] ALT [Catalytic activity/Vol] 38 U/L Normal 10-54 [facility] Comment on above: Order Comment: Speci men Type: BLOOD SPECIMENOrdering Facility: [facility] [place] Address: [address] [place] [address] Performed By: #### 2 4321-2, 70179-1, 2776-08 ####[facility] LABCLIA [id number] [place] [address] [place] AST [Catalytic activity/Vol] 88 U/L High 14-40 [facility] Comment on above: Order Comment: Speci men Type: BLOOD SPECIMENOrdering Facility: [facility] [place] Address: [address] [place] [address] Performed By: #### 2 4321-2, 91366-0, 2776-08 ####[facility] LABCLIA [id number] [place] [address] [place] Bilirubin [Mass/Vol] 1.8 mg/dL High 0.2-1.3 [facility] Comment on above: Order Comment: Speci men Type: BLOOD SPECIMENOrdering Facility: [facility] [place] Address: [address] [place] [address] Performed By: #### 2 4321-2, 44486-6, 2776- ####[facility] LABCLIA [id number] [address] [place] [address] [place] Bilirubin.conjugated [Mass/Vol] 0.9 mg/dL High <0.3 [facility] Comment on above: Order Comment: Speci men Type: BLOOD SPECIMENOrdering Facility: [facility] [place] Address: [address] [place] [address] Performed By: #### 2 4321-2, 57663-5, 2777-1 ####[facility] LABCLIA [id number] [address] [place] [address] [place] Protein [Mass/Vol] 5.5 g/dL Low 6.3-8.0 [facility] Comment on above: Order Comment: Speci men Type: BLOOD SPECIMENOrdering Facility: [facility] [place] Address: [address] [place] [address] Performed By: #### 2 4321-2, 43426-5, 2777-1 ####[facility] LABCLIA [id number] [address] [place] [address] [place] MANUAL DIFFERENTIAL, BODY FL UIDon 11-16-2024 DIF TTL, BODY FLUID 100 cells counted Normal [facility] Comment on above: Order Comment: Speci men Type: FLUID SPECIMENOrdering Facility: [facility] [place] Address: [address] [place] [address] Performed By: #### C CBF, [id number] ####[facility] LABCLIA [id number] [address] [place] [address] [place] LYMPH%, BF 47 % High 18-36 [facility] Comment on above: Order Comment: Speci men Type: FLUID SPECIMENOrdering Facility: [facility] [place] Address: [address] [place] [address] Performed By: #### C CBF, [id number] ####[facility] LABCLIA [id number] [address] [place] [address] [place] MACRO%, BF 6 % Low 64-80 [facility] Comment on above: Order Comment: Speci men Type: FLUID SPECIMENOrdering Facility: [facility] [place] Address: [address] [place] [address] Performed By: #### C CBF, [id number] ####[facility] LABCLIA [id number] [place] [address] [place] MESO %, BF 25 % High 0-2 [facility] Comment on above: Order Comment: Speci men Type: FLUID SPECIMENOrdering Facility: [facility] [place] Address: [address] [place] [address] Performed By: #### C CBF, [id number] ####[facility] LABCLIA [id number] [place] [address] [place] MONO% BF 8 % Normal [facility] Comment on above: Order Comment: Speci men Type: FLUID SPECIMENOrdering Facility: [facility] [place] Address: [address] [place] [address] Performed By: #### C CBF, [id number] ####[facility] LABCLIA [id number] [place] [address] [place] NEUT%, BF 14 % High 0-1 [facility] Comment on above: Order Comment: Speci men Type: FLUID SPECIMENOrdering Facility: [facility] [place] Address: [address] [place] [address] Performed By: #### C CBF, [id number] ####[facility] LABCLIA [id number] [place] [address] [place] NURSING PROGon 11-16-2024 NURSING PROG Normal [facility] NURSING PROG Normal [facility] PT panel Coag (PPP)on 2024 INR Coag (PPP) [Relative time] 2.1 {INR} High 0.9-1.3 [facility] Comment on above: Order Comment: Speci men Type: BLOOD SPECIMENOrdering Facility: [facility] [place] Address: [address] [place] [address] Result Comment: Sarah min K Antagonist (VKA) Therapeutic Range: INR 2 to 3 (Target INR of 2.5)Note: For patients treated with VKA drugs, such as warfarin, the [employer] 2012 Guideline recommends [...] al. Chest 2012, 141:7S-47SHector RA, et al. [facility] 2017, 70: 252-289 Performed By: #### 3 4528-0 ####[facility] [id number] [place] [address] [place] PT Coag (PPP) [Time] 21.5 s High 9.7-13.0 [facility] Comment on above: Order Comment: Ezekiel ramirez Type: BLOOD SPECIMENOrdering Facility: [facility] [place] Address: [address] [place] [address] Performed By: #### 3 4528-0 ####[facility] [id number] [address] [place] INR Coag (PPP) [Relative time] 2.0 {INR} High 0.9-1.3 [facility] Comment on above: Order Comment: Ezekiel ramirez Type: BLOOD SPECIMENOrdering Facility: [facility] [place] Address: [address] [place] [address] Result Comment: Sarah min K Antagonist (VKA) Therapeutic Range: INR 2 to 3 (Target INR of 2.5)Note: For patients treated with VKA drugs, such as warfarin, the [employer] 2012 Guideline recommends [...] al. Chest 2012, 141:7S-47SNishbethel RA, et al. [facility] 2017, 70: 252-289 Performed By: #### 3 255-7, 82658-3 ####[facility] LABIA [id number] [place] [address] [place] PT Coag (PPP) [Time] 20.3 s High 9.7-13.0 [facility] Comment on above: Order Comment: Speci men Type: BLOOD SPECIMENOrdering Facility: [facility] [place] Address: [address] [place] [address] Performed By: #### 3 255-7, 31052-9 ####[facility] LABIA [id number] [place] [address] [place] Phosphate SerPl-mCncon 11-16 Phosphate [Mass/Vol] 2.3 mg/dL Low 2.7-4.8 [facility] Comment on above: Order Comment: Speci men Type: BLOOD SPECIMENOrdering Facility: [facility] [place] Address: [address] [place] [address] Performed By: #### 2 4321-2, 86759-1, 2777-1 ####[facility] LABIA [id number] [place] [address] [place] Prot Fld-mCncon 11-16-2024 Protein (Body fld) [Mass/Vol] 0.5 g/dL Normal See Comment [facility] Comment on above: Order Comment: Speci men Type: FLUID SPECIMENOrdering Facility: [facility] [place] Address: [address] [place] [address] Result Comment: Sero us fluids: Effusions are [...] document C49A. PAULETTE Diaz: Clinical Laboratory Standards [place]: 2007. Performed By: #### 1 795-4, 2881-1, 1747-5 ####[facility] LABIA [id number] [place] [address] [place] THERAPY NTon 11-16-2024 THERAPY NT Normal [facility] THERAPY NT Normal [facility] BLOOD TB SCREENon 11-15-2024 M. tuberculosis tuberculin stim IFN-g Ql (Bld) Indeterminate Normal [facility] Comment on above: Order Comment: Speci james Type: BLOOD SPECIMENOrdering Facility: [facility] [place] Address: [address] [place] [address] Performed By: #### I NFTBP ####[facility] LABIA [id number] [place] [address] [place] MITOGEN MINUS NIL 0.25 IU/mL Low >=0.50 [facility] Comment on above: Order Comment: Speci men Type: BLOOD SPECIMENOrdering Facility: [facility] [place] Address: [address] [place] [address] Performed By: #### I NFTBP ####[facility] LABIA [id number] [place] [id number] [place] TB GAMMA INTERPRETATION Normal C [facility] Comment on above: Order Comment: Speci men Type: BLOOD SPECIMENOrdering Facility: [facility] [place] Address: [address] [place] [address] Performed By: #### I NFTBP ####[facility] LABCLIA [id number] [place] [address] [place] TB NIL 0.01 IU/mL Normal <=8.00 [facility] Comment on above: Order Comment: Speci men Type: BLOOD SPECIMENOrdering Facility: [facility] [place] Address: [address] [place] [address] Performed By: #### I NFTBP ####[facility] LABCLIA [id number] [place] [address] [place] TB1 AG MINUS NIL 0.00 IU/mL Normal <0.35 [facility] Comment on above: Order Comment: Speci men Type: BLOOD SPECIMENOrdering Facility: [facility] [place] Address: [address] [place] [address] Performed By: #### I NFTBP ####[facility] LABCLIA [id number] [place] [address] [place] TB2 AG MINUS NIL 0.01 IU/mL Normal <0.35 [facility] Comment on above: Order Comment: Speci men Type: BLOOD SPECIMENOrdering Facility: [facility] [place] Address: [address] [place] [address] Performed By: #### I NFTBP ####[facility] LABCLIA [id number] [place] [address] [place] CASE MANAGEMon 11-15-2024 CASE MANAGEM Normal [facility] CASE MANAGEM Normal [facility] CBC W Auto Differential pane l (Bld)on 11-15-2024 Basophils (Bld) [#/Vol] 0.05 10*3/uL Normal <0.11 [facility] Comment on above: Order Comment: Speci men Type: BLOOD SPECIMENOrdering Facility: [facility] [place] Address: [address] [place] [address] Performed By: #### 5 7021-8 ####[facility] LABCLIA [id number] [facility] [place] [address] [place] Basophils/100 WBC (Bld) 0.8 % Normal [facility] Comment on above: Order Comment: Speci men Type: BLOOD SPECIMENOrdering Facility: [facility] [place] Address: [address] [place] [address] Performed By: #### 5 7021-8 ####[facility] LABCLIA [id number] [place] [address] [place] Differential cell count method Nom (Bld) Auto Normal [facility] Comment on above: Order Comment: Speci men Type: BLOOD SPECIMENOrdering Facility: [facility] [place] Address: [address] [place] [address] Performed By: #### 5 7021-8 ####[facility] LABCLIA [id number] [place] [address] [place] Eosinophils (Bld) [#/Vol] 0.28 10*3/uL Normal <0.46 [facility] Comment on above: Order Comment: Speci men Type: BLOOD SPECIMENOrdering Facility: [facility] [place] Address: [address] [place] [address] Performed By: #### 5 7021-8 ####[facility] LABCLIA [id number] [place] [address] [place] Eosinophils/100 WBC (Bld) 4.6 % Normal [facility] Comment on above: Order Comment: Speci men Type: BLOOD SPECIMENOrdering Facility: [facility] [place] Address: [address] [place] [address] Performed By: #### 5 7021-8 ####[facility] LABCLIA [id number] [place] [address] [place] Erythrocyte distribution width (RBC) [Ratio] 16.8 % High 11.5-15.0 [facility] Comment on above: Order Comment: Speci men Type: BLOOD SPECIMENOrdering Facility: [facility] [place] Address: [address] [place] [address] Performed By: #### 5 7021-8 ####[facility] LABCLIA [id number] [place] [address] [place] Hematocrit (Bld) [Volume fraction] 22.9 % Low 39.0-51.0 [facility] Comment on above: Order Comment: Speci men Type: BLOOD SPECIMENOrdering Facility: [facility] [place] Address: [address] [place] [address] Performed By: #### 5 7021-8 ####[facility] LABCLIA [id number] [place] [address] [place] Hemoglobin (Bld) [Mass/Vol] 7.6 g/dL Low 13.0-17.0 [facility] Comment on above: Order Comment: Speci men Type: BLOOD SPECIMENOrdering Facility: [facility] [place] Address: [address] [place] [address] Performed By: #### 5 7021-8 ####[facility] LABIA [id number] [place] [address] [place] Immature granulocytes (Bld) [#/Vol] 0.03 10*3/uL Normal <0.10 [facility] Comment on above: Order Comment: Speci men Type: BLOOD SPECIMENOrdering Facility: [facility] [place] Address: [address] [place] [address] Performed By: #### 5 7021-8 ####[facility] LABCLIA [id number] [place] [address] [place] Immature granulocytes/100 WBC (Bld) 0.5 % Normal [facility] Comment on above: Order Comment: Speci men Type: BLOOD SPECIMENOrdering Facility: [facility] [place] Address: [address] [place] [address] Performed By: #### 5 7021-8 ####[facility] LABCLIA [id number] [place] [address] [place] Lymphocytes (Bld) [#/Vol] 0.70 10*3/uL Low 1.00-4.00 [facility] Comment on above: Order Comment: Speci men Type: BLOOD SPECIMENOrdering Facility: [facility] [place] Address: [address] [place] [address] Performed By: #### 5 7021-8 ####[facility] LABIA [id number] [place] [address] [place] Lymphocytes/100 WBC (Bld) 11.5 % Normal [facility] Comment on above: Order Comment: Speci men Type: BLOOD SPECIMENOrdering Facility: [facility] [place] Address: [address] [place] [address] Performed By: #### 5 7021-8 ####[facility] LABIA [id number] [place] [address] [place] MCH (RBC) [Entitic mass] 30.6 pg Normal 26.0-34.0 [facility] Comment on above: Order Comment: Speci men Type: BLOOD SPECIMENOrdering Facility: [facility] [place] Address: [address] [place] [address] Performed By: #### 5 7021-8 ####[facility] LABIA [id number] [place] [id number] [place] MCHC (RBC) [Mass/Vol] 33.2 g/dL Normal 30.5-36.0 [facility] Comment on above: Order Comment: Speci men Type: BLOOD SPECIMENOrdering Facility: [facility] [place] Address: [address] [place] [address] Performed By: #### 5 7021-8 ####[facility] LABCLIA [id number] [address] [place] [address] [place] MCV (RBC) [Entitic vol] 92.3 fL Normal 80.0-100.0 C [facility] Comment on above: Order Comment: Speci men Type: BLOOD SPECIMENOrdering Facility: [facility] [place] Address: [address] [place] [address] Performed By: #### 5 7021-8 ####[facility] LABCLIA [id number] [address], [place] [address] [place] Monocytes (Bld) [#/Vol] 0.73 10*3/uL Normal <0.87 [facility] Comment on above: Order Comment: Speci men Type: BLOOD SPECIMENOrdering Facility: [facility] [place] Address: [address] [place] [address] Performed By: #### 5 7021-8 ####[facility] LABIA [id number] [place] [address] [place] Monocytes/100 WBC (Bld) 12.0 % Normal C [facility] Comment on above: Order Comment: Speci men Type: BLOOD SPECIMENOrdering Facility: [facility] [place] Address: [address] [place] [address] Performed By: #### 5 7021-8 ####[facility] LABCLIA [id number] [place] [address] [place] Neutrophils (Bld) [#/Vol] 4.30 10*3/uL Normal 1.45-7.50 [facility] Comment on above: Order Comment: Speci men Type: BLOOD SPECIMENOrdering Facility: [facility] [place] Address: [address] [place] [address] Performed By: #### 5 7021-8 ####[facility] LABCLIA [id number] [place] [id number] [place] Neutrophils/100 WBC (Bld) 70.6 % Normal [facility] Comment on above: Order Comment: Speci men Type: BLOOD SPECIMENOrdering Facility: [facility] [place] Address: [address] [place] [address] Performed By: #### 5 7021-8 ####[facility] LABCLIA [id number] [address] [place] [address] [place] Nucleated RBC (Bld) [#/Vol] 10*3/uL Normal <0.01 [facility] Comment on above: Order Comment: Speci men Type: BLOOD SPECIMENOrdering Facility: [facility] [place] Address: [address] [place] [address] Performed By: #### 5 7021-8 ####[facility] LABIA [id number] [place] [address] [place] Nucleated RBC/100 WBC (Bld) [Ratio] 0.0 /100 WBC Normal [facility] Comment on above: Order Comment: Speci men Type: BLOOD SPECIMENOrdering Facility: [facility] [place] Address: [address] [place] [address] Performed By: #### 5 7021-8 ####[facility] LABIA [id number] [place] [address] [place] Platelet mean volume (Bld) [Entitic vol] 12.2 fL Normal 9.0-12.7 [facility] Comment on above: Order Comment: Speci men Type: BLOOD SPECIMENOrdering Facility: [facility] [place] Address: [address] [place] [address] Performed By: #### 5 7021-8 ####[facility] LABIA [id number] [place] [address] [place] Platelets (Bld) [#/Vol] 53 10*3/uL Low 150-400 C [facility] Comment on above: Order Comment: Speci men Type: BLOOD SPECIMENOrdering Facility: [facility] [place] Address: [address] [place] [address] Performed By: #### 5 7021-8 ####[facility] LABCLIA [id number] [place] [id number] [place] RBC (Bld) [#/Vol] 2.48 10*6/uL Low 4.20-6.00 [facility] Comment on above: Order Comment: Speci men Type: BLOOD SPECIMENOrdering Facility: [facility] [place] Address: [address] [place] [address] Performed By: #### 5 7021-8 ####[facility] LABCLIA [id number] [place] [address] [place] WBC (Bld) [#/Vol] 6.09 10*3/uL Normal 3.70-11.00 [facility] Comment on above: Order Comment: Speci men Type: BLOOD SPECIMENOrdering Facility: [facility] [place] Address: [address] [place] [address] Performed By: #### 5 7021-8 ####[facility] LABIA [id number] [place] [id number] [place] CNOVon 11-15-2024 CNOV Normal [facility] CONSULTon 11-15-2024 CONSULT Normal [facility] CONSULT PROGon 11-15-2024 CONSULT PROG Normal [facility] Fibrinogen PPP-mCncon 2024 Fibrinogen Coag (PPP) [Mass/Vol] 123 mg/dL Low 200-400 [facility] Comment on above: Order Comment: Speci men Type: BLOOD SPECIMENOrdering Facility: [facility] [place] Address: [address] [place] [address] Performed By: #### 3 255-7, 29973-7 ####[facility] LABCLIA [id number] [place] [id number] [place] Hepatic function 2000 panelo n 11-15-2024 Albumin [Mass/Vol] 2.8 g/dL Low 3.9-4.9 [facility] Comment on above: Order Comment: Speci men Type: BLOOD SPECIMENOrdering Facility: [facility] [place] Address: [address] [place] [id number] Performed By: #### 2 4325-3, 87520-5 ####[facility] LABCLIA [id number] [address] [address] [place] ALP [Catalytic activity/Vol] 277 U/L High 38-113 [facility] Comment on above: Order Comment: Speci men Type: BLOOD SPECIMENOrdering Facility: [facility] [place] Address: [address] [place], [place] [address] Performed By: #### 2 4325-3, 01819-2 ####[facility] LABCLIA [id number] [place] [id number] [place] ALT [Catalytic activity/Vol] 36 U/L Normal 10-54 [facility] Comment on above: Order Comment: Speci men Type: BLOOD SPECIMENOrdering Facility: [facility] [place] Address: [address] [place], [place] [address] Performed By: #### 2 4325-3, 63135-7 ####[facility] LABCLIA [id number] [place] [address] [place] AST [Catalytic activity/Vol] 87 U/L High 14-40 [facility] Comment on above: Order Comment: Speci men Type: BLOOD SPECIMENOrdering Facility: [facility] [place] Address: [address] [place], [place] [address] Performed By: #### 2 4325-3, 57254-8 ####[facility] LABCLIA [id number] [place] [id number] [place] Bilirubin [Mass/Vol] 1.6 mg/dL High 0.2-1.3 [facility] Comment on above: Order Comment: Speci men Type: BLOOD SPECIMENOrdering Facility: [facility] [place] Address: [address] [place], [place] [address] Performed By: #### 2 4325-3, 19981-4 ####[facility] LABIA [id number] [place] [address] [place] Bilirubin.conjugated [Mass/Vol] 0.9 mg/dL High <0.3 [facility] Comment on above: Order Comment: Ezekiel ramirez Type: BLOOD SPECIMENOrdering Facility: [facility] [place] Address: [address] [place] [address] Performed By: #### 2 4325-3, 88451-0 ####[facility] LABIA [id number] [place] [id number] [place] Protein [Mass/Vol] 5.4 g/dL Low 6.3-8.0 [facility] Comment on above: Order Comment: Ezekiel ramirez Type: BLOOD SPECIMENOrdering Facility: [facility] [place] Address: [address] [place] [address] Performed By: #### 2 4325-3, 87473-8 ####[facility] LABIA [id number] [place] [address] [place] PT panel Coag (PPP)on 2024 INR Coag (PPP) [Relative time] 1.8 {INR} High 0.9-1.3 [facility] Comment on above: Order Comment: Ezekiel ramirez Type: BLOOD SPECIMENOrdering Facility: [facility] [place] Address: [address] [place] [address] Result Comment: Sarah min K Antagonist (VKA) Therapeutic Range: INR 2 to 3 (Target INR of 2.5)Note: For patients treated with VKA drugs, such as warfarin, the [place] [employer] 2012 Guideline recommends [...] al. Chest 2012, 141:7S-47SNishimura RA, et al. [facility] 2017, 70: 252-289 Performed By: #### 3 255-7, 01497-8 ####[facility] LABCLIA [id number] [address] [address] [place] PT Coag (PPP) [Time] 18.9 s High 9.7-13.0 [facility] Comment on above: Order Comment: Speci men Type: BLOOD SPECIMENOrdering Facility: [facility] [place] Address: [address] [place] [address] Performed By: #### 3 255-7, 80131-6 ####[facility] LABIA [id number] [place] [address] [place] Renal function 2000 panelon 11-15-2024 Albumin [Mass/Vol] 2.9 g/dL Low 3.9-4.9 [facility] Comment on above: Order Comment: Speci men Type: BLOOD SPECIMENOrdering Facility: [facility] [place] Address: [address] [place] [address] Performed By: #### 2 4325-3, 25577-4 ####[facility] LABIA [id number] [place] [address] [place] Anion gap [Moles/Vol] 15 mmol/L Normal 8-15 [facility] Comment on above: Order Comment: Speci men Type: BLOOD SPECIMENOrdering Facility: [facility] [place] Address: [address] [place] [address] Performed By: #### 2 4325-3, 25368-3 ####[facility] LABCLIA [id number] [address] [address] [place] Calcium [Mass/Vol] 8.4 mg/dL Low 8.5-10.2 [facility] Comment on above: Order Comment: Speci men Type: BLOOD SPECIMENOrdering Facility: [facility] [place] Address: [address] [place], [place] [address] Performed By: #### 2 4325-3, 35662-5 ####[facility] LABCLIA [id number] [facility] [address] [place] [address] [place] Chloride [Moles/Vol] 99 mmol/L Normal 98-107 [facility] Comment on above: Order Comment: Speci men Type: BLOOD SPECIMENOrdering Facility: [facility] [place] Address: [address] [place] [address] Performed By: #### 2 4325-3, 41099-9 ####[facility] LABCLIA [id number] [facility] [place] [address] [place] CO2 [Moles/Vol] 14 mmol/L Low 22-30 [facility] Comment on above: Order Comment: Speci men Type: BLOOD SPECIMENOrdering Facility: [facility] [place] Address: [address] [place] [address] Performed By: #### 2 4325-3, 40896-6 ####[facility] LABCLIA [id number] [facility] [place] [address] [place] Creatinine [Mass/Vol] 0.80 mg/dL Normal 0.73-1.22 [facility] Comment on above: Order Comment: Speci men Type: BLOOD SPECIMENOrdering Facility: [facility] [place] Address: [address] [place], [place] [address] Performed By: #### 2 4325-3, 13313-1 ####[facility] LABCLIA [id number] [facility] [place] [address] [place] Creatinine and Glomerular filtration rate.predicted panel (S/P/Bld) 103 mL/min/1.73m??? Normal >=60 [facility] Comment on above: Order Comment: Speci men Type: BLOOD SPECIMENOrdering Facility: [facility] [place] Address: [address] [place] [address] Result Comment: Patric mated Glomerular Filtration Rate [...] actual GFR. Performed By: #### 2 4325-3, 61079-9 ####[facility] LABIA [id number] [place] [id number] [place] Glucose [Mass/Vol] 272 mg/dL High 74-99 [facility] Comment on above: Order Comment: Ezekiel ramirez Type: BLOOD SPECIMENOrdering Facility: [facility] [place] Address: [address] [place] [address] Result Comment: The [place] [employer] (ADA) provides guidance for cutoff [...] Standards of Medical Care in Diabetes 2016, [place] [employer]. Diabetes Care. 2016.39(Suppl 1). Performed By: #### 2 4325-3, 30914-2 ####[facility] LABIA [id number] [address] [address] [place] Phosphate [Mass/Vol] 2.2 mg/dL Low 2.7-4.8 [facility] Comment on above: Order Comment: Ezekiel ramirez Type: BLOOD SPECIMENOrdering Facility: [facility] [place] Address: [address] [place] [address] Performed By: #### 2 4325-3, 14637-4 ####[facility] LABCLIA [id number] [facility] [address] [place] [address] [place] Potassium [Moles/Vol] 3.8 mmol/L Normal 3.7-5.1 [facility] Comment on above: Order Comment: Speci men Type: BLOOD SPECIMENOrdering Facility: [facility] [place] Address: [address] [place] [address] Performed By: #### 2 4325-3, 34529-5 ####[facility] LABCLIA [id number] [facility] [place] [address] [place] Sodium [Moles/Vol] 128 mmol/L Low 136-144 [facility] Comment on above: Order Comment: Speci men Type: BLOOD SPECIMENOrdering Facility: [facility] [place] Address: [address] [place] [address] Performed By: #### 2 4325-3, 63300-9 ####[facility] LABCLIA [id number] [place] [id number] [place] Urea nitrogen [Mass/Vol] 11 mg/dL Normal 9-24 [facility] Comment on above: Order Comment: Speci men Type: BLOOD SPECIMENOrdering Facility: [facility] [place] Address: [address] [place] [address] Performed By: #### 2 4325-3, 53138-5 ####[facility] LABCLIA [id number] [facility] [address] [address] [place] SEPSIS LACTATEon 11-15-2024 Lactate [Moles/Vol] 3.2 mmol/L High <=2.0 [facility] Comment on above: Order Comment: Speci men Type: BLOOD SPECIMENOrdering Facility: [facility] [place] Address: [address] [place] [address] Performed By: #### S LACT ####[facility] LABCLIA [id number] [place] [id number] [place] SOCIAL WORKon 11-15-2024 SOCIAL WORK Normal [facility] THERAPY NTon 11-15-2024 THERAPY NT Normal [facility] THERAPY NT Normal [facility] TYPE + SCREENon 11-15-2024 ABO O Normal [facility] Comment on above: Order Comment: Speci men Type: BLOOD SPECIMENOrdering Facility: [facility] [place] Address: [address] [place] [address] Performed By: #### T SCR ####CC MAIN BLOOD BANKCLIA [id number] [place] [address] [place] Rh Nom (Bld) Positive Normal [facility] Comment on above: Order Comment: Speci men Type: BLOOD SPECIMENOrdering Facility: [facility] [place] Address: [address] [place] [address] Performed By: #### T SCR ####CC MAIN BLOOD BANKCLIA [id number] [place] [address] [place] TYPE AND SCREEN EXPIRATION 11/18/2024 23:59 Normal [facility] Comment on above: Order Comment: Speci men Type: BLOOD SPECIMENOrdering Facility: [facility] [place] Address: [address] [place] [address] Performed By: #### T SCR ####CC MAIN BLOOD BANKCLIA [id number] [place] [address] [place] US ASCITES SURVEYon 11-16-19 US ASCITES SURVEY Normal [facility] Basic metabolic 2000 panelon 11-14-2024 Anion gap [Moles/Vol] 11 mmol/L Normal 8-15 [facility] Comment on above: Order Comment: Speci men Type: BLOOD SPECIMENOrdering Facility: [facility] [place] Address: [address] [place] [address] Performed By: #### 2 4321-2, 88720-7, 2777-1, 35670-8 ####[facility] LABCLIA [id number] [place] [id number] [place] Calcium [Mass/Vol] 8.9 mg/dL Normal 8.5-10.2 [facility] Comment on above: Order Comment: Speci men Type: BLOOD SPECIMENOrdering Facility: [facility] [place] Address: [address] [place] [address] Performed By: #### 2 4321-2, 51779-9, 277-1, 91121-8 ####[facility] LABCLIA [id number] [place] [address] [place] Chloride [Moles/Vol] 99 mmol/L Normal 98-107 [facility] Comment on above: Order Comment: Speci men Type: BLOOD SPECIMENOrdering Facility: [facility] [place] Address: [address] [place] [address] Performed By: #### 2 4321-2, 45615-6, 277-1, ####[facility] LABCLIA [id number] [place] [address] [place] CO2 [Moles/Vol] 17 mmol/L Low 22-30 [facility] Comment on above: Order Comment: Speci men Type: BLOOD SPECIMENOrdering Facility: [facility] [place] Address: [address] [place] [address] Performed By: #### 2 4321-2, 31929-4, 2776-, ####[facility] LABCLIA [id number] [place] [id number] [place] Creatinine [Mass/Vol] 0.89 mg/dL Normal 0.73-1.22 [facility] Comment on above: Order Comment: Speci men Type: BLOOD SPECIMENOrdering Facility: [facility] [place] Address: [address] [place] [address] Performed By: #### 2 4321-2, 41826-0, 277-1, 83938-2 ####[facility] LABCLIA [id number] [address] [place] Creatinine and Glomerular filtration rate.predicted panel (S/P/Bld) 99 mL/min/1.73m??? Normal >=60 [facility] Comment on above: Order Comment: Ezekiel ramirez Type: BLOOD SPECIMENOrdering Facility: [facility] [place] Address: [address] [place] [address] Result Comment: Patric mated Glomerular Filtration Rate [...] actual GFR. Performed By: #### 2 4321-2, 89279-3, 2777-1, ####[facility] LABCLIA [id number] [place] [address] [place] Glucose [Mass/Vol] 250 mg/dL High 74-99 [facility] Comment on above: Order Comment: Ezekiel ramirez Type: BLOOD SPECIMENOrdering Facility: [facility] [place] Address: [address] [place] [address] Result Comment: The [place] Diabetes Association (ADA) provides guidance for cutoff [...] Standards of Medical Care in Diabetes 2016, [place] [employer]. Diabetes Care. 2016.39(Suppl 1). Performed By: #### 2 4321-2, 76324-2, 2777-1, 40530-9 ####[facility] LABCLIA [id number] [place] [address] [place] Potassium [Moles/Vol] 3.6 mmol/L Low 3.7-5.1 [facility] Comment on above: Order Comment: Speci men Type: BLOOD SPECIMENOrdering Facility: [facility] [place] Address: [address] [place] [address] Performed By: #### 2 4321-2, 76062-4, 277-1, ####[facility] LABCLIA [id number] [place] [address] [place] Sodium [Moles/Vol] 127 mmol/L Low 136-144 [facility] Comment on above: Order Comment: Speci men Type: BLOOD SPECIMENOrdering Facility: [facility] [place] Address: [address] [place] [address] Performed By: #### 2 4321-2, 13670-8, 277-1, ####[facility] LABCLIA [id number] [place] [address] [place] Urea nitrogen [Mass/Vol] 14 mg/dL Normal 9-24 [facility] Comment on above: Order Comment: Speci men Type: BLOOD SPECIMENOrdering Facility: [facility] [place] Address: [address] [place] [address] Performed By: #### 2 4321-2, 89327-0, 277-1, ####[facility] LABIA [id number] [place] [id number] [place] CBC W Auto Differential pane l (Bld)on 11-14-2024 Basophils (Bld) [#/Vol] 0.04 10*3/uL Normal <0.11 [facility] Comment on above: Order Comment: Speci men Type: BLOOD SPECIMENOrdering Facility: [facility] [place] Address: [address] [place] [address] Performed By: #### 5 7021-8 ####[facility] LABCLIA [id number] [place] [address] [place] Basophils/100 WBC (Bld) 0.7 % Normal [facility] Comment on above: Order Comment: Speci men Type: BLOOD SPECIMENOrdering Facility: [facility] [place] Address: [address] [place] [address] Performed By: #### 5 7021-8 ####[facility] LABCLIA [id number] [place] [address] [place] Differential cell count method Nom (Bld) Auto Normal [facility] Comment on above: Order Comment: Speci men Type: BLOOD SPECIMENOrdering Facility: [facility] [place] Address: [address] [place] [address] Performed By: #### 5 7021-8 ####[facility] LABCLIA [id number] [place] [address] [place] Eosinophils (Bld) [#/Vol] 0.23 10*3/uL Normal <0.46 [facility] Comment on above: Order Comment: Speci men Type: BLOOD SPECIMENOrdering Facility: [facility] [place] Address: [address] [place] [address] Performed By: #### 5 7021-8 ####[facility] LABCLIA [id number] [address] [place] Eosinophils/100 WBC (Bld) 4.1 % Normal [facility] Comment on above: Order Comment: Speci men Type: BLOOD SPECIMENOrdering Facility: [facility] [place] Address: [address] [place] [address] Performed By: #### 5 7021-8 ####[facility] LABCLIA [id number] [place] [address] [place] Erythrocyte distribution width (RBC) [Ratio] 16.3 % High 11.5-15.0 [facility] Comment on above: Order Comment: Speci men Type: BLOOD SPECIMENOrdering Facility: [facility] [place] Address: [address] [place] [address] Performed By: #### 5 7021-8 ####[facility] [facility] [id number] [place] [address] [place] Hematocrit (Bld) [Volume fraction] 22.7 % Low 39.0-51.0 [facility] Comment on above: Order Comment: Speci men Type: BLOOD SPECIMENOrdering Facility: [facility] [place] Address: [address] [place] [address] Performed By: #### 5 7021-8 ####[facility] LABIA [id number] [place] [address] [place] Hemoglobin (Bld) [Mass/Vol] 7.9 g/dL Low 13.0-17.0 [facility] Comment on above: Order Comment: Speci men Type: BLOOD SPECIMENOrdering Facility: [facility] [place] Address: [address] [place] [address] Performed By: #### 5 7021-8 ####[facility] LABIA [id number] [place] [address] [place] Immature granulocytes (Bld) [#/Vol] 0.04 10*3/uL Normal <0.10 [facility] Comment on above: Order Comment: Speci men Type: BLOOD SPECIMENOrdering Facility: [facility] [place] Address: [address] [place] [address] Performed By: #### 5 7021-8 ####[facility] LABCLIA [id number] [place] [address] [place] Immature granulocytes/100 WBC (Bld) 0.7 % Normal [facility] Comment on above: Order Comment: Speci men Type: BLOOD SPECIMENOrdering Facility: [facility] [place] Address: [address] [place] [address] Performed By: #### 5 7021-8 ####[facility] LABCLIA [id number] [place] [address] [place] Lymphocytes (Bld) [#/Vol] 0.72 10*3/uL Low 1.00-4.00 [facility] Comment on above: Order Comment: Speci men Type: BLOOD SPECIMENOrdering Facility: [facility] [place] Address: [address] [place] [address] Performed By: #### 5 7021-8 ####[facility] LABCLIA [id number] [address] [place] Lymphocytes/100 WBC (Bld) 12.8 % Normal [facility] Comment on above: Order Comment: Speci men Type: BLOOD SPECIMENOrdering Facility: [facility] [place] Address: [address] [place] [address] Performed By: #### 5 7021-8 ####[facility] LABIA [id number] [place] [address] [place] MCH (RBC) [Entitic mass] 31.7 pg Normal 26.0-34.0 [facility] Comment on above: Order Comment: Speci men Type: BLOOD SPECIMENOrdering Facility: [facility] [place] Address: [address] [place] [address] Performed By: #### 5 7021-8 ####[facility] LABCLIA [id number] [place] [address] [place] MCHC (RBC) [Mass/Vol] 34.8 g/dL Normal 30.5-36.0 [facility] Comment on above: Order Comment: Speci men Type: BLOOD SPECIMENOrdering Facility: [facility] [place] Address: [address] [place] [address] Performed By: #### 5 7021-8 ####[facility] LABCLIA [id number] [place] [address] [place] MCV (RBC) [Entitic vol] 91.2 fL Normal 80.0-100.0 [facility] Comment on above: Order Comment: Speci men Type: BLOOD SPECIMENOrdering Facility: [facility] [place] Address: [address] [place] [address] Performed By: #### 5 7021-8 ####[facility] LABCLIA [id number] [place] [id number] [place] Monocytes (Bld) [#/Vol] 0.68 10*3/uL Normal <0.87 [facility] Comment on above: Order Comment: Speci men Type: BLOOD SPECIMENOrdering Facility: [facility] [place] Address: [address] [place] [address] Performed By: #### 5 7021-8 ####[facility] LABCLIA [id number] [place] [address] [place] Monocytes/100 WBC (Bld) 12.1 % Normal [facility] Comment on above: Order Comment: Speci men Type: BLOOD SPECIMENOrdering Facility: [facility] [place] Address: [address] [place] [address] Performed By: #### 5 7021-8 ####[facility] LABCLIA [id number] [place] [address] [place] Neutrophils (Bld) [#/Vol] 3.92 10*3/uL Normal 1.45-7.50 [facility] Comment on above: Order Comment: Speci men Type: BLOOD SPECIMENOrdering Facility: [facility] [place] Address: [address] [place] [address] Performed By: #### 5 7021-8 ####[facility] LABCLIA [id number] [place] [id number] [place] Neutrophils/100 WBC (Bld) 69.6 % Normal [facility] Comment on above: Order Comment: Speci men Type: BLOOD SPECIMENOrdering Facility: [facility] [place] Address: [address] [place] [address] Performed By: #### 5 7021-8 ####[facility] LABCLIA [id number] [place] [address] [place] Nucleated RBC (Bld) [#/Vol] 10*3/uL Normal <0.01 [facility] Comment on above: Order Comment: Speci men Type: BLOOD SPECIMENOrdering Facility: [facility] [place] Address: [address] [place] [address] Performed By: #### 5 7021-8 ####[facility] LABCLIA [id number] [place] [address] [place] Nucleated RBC/100 WBC (Bld) [Ratio] 0.0 /100 WBC Normal [facility] Comment on above: Order Comment: Speci men Type: BLOOD SPECIMENOrdering Facility: [facility] [place] Address: [address] [place] [address] Performed By: #### 5 7021-8 ####[facility] LABCLIA [id number] [place] [address] [place] Platelet mean volume (Bld) [Entitic vol] 12.1 fL Normal 9.0-12.7 [facility] Comment on above: Order Comment: Speci men Type: BLOOD SPECIMENOrdering Facility: [facility] [place] Address: [address] [place] [address] Performed By: #### 5 7021-8 ####[facility] LABCLIA [id number] [place] [address] [place] Platelets (Bld) [#/Vol] 43 10*3/uL Low 150-400 C [facility] Comment on above: Order Comment: Speci men Type: BLOOD SPECIMENOrdering Facility: [facility] [place] Address: [address] [place] [address] Result Comment: Resu lts checked and verified.No clot detected. Performed By: #### 5 7021-8 ####[facility] LABCLIA [id number] [place] [address] [place] RBC (Bld) [#/Vol] 2.49 10*6/uL Low 4.20-6.00 [facility] Comment on above: Order Comment: Speci men Type: BLOOD SPECIMENOrdering Facility: [facility] [place] Address: [address] [place] [address] Performed By: #### 5 7021-8 ####[facility] LABCLIA [id number] [place] [address] [place] WBC (Bld) [#/Vol] 5.63 10*3/uL Normal 3.70-11.00 [facility] Comment on above: Order Comment: Speci men Type: BLOOD SPECIMENOrdering Facility: [facility] [place] Address: [address] [place] [address] Performed By: #### 5 7021-8 ####[facility] LABIA [id number] [place] [address] [place] Fibrinogen PPP-mCncon 2024 Fibrinogen Coag (PPP) [Mass/Vol] 119 mg/dL Low 200-400 [facility] Comment on above: Order Comment: Speci men Type: BLOOD SPECIMENOrdering Facility: [facility] [place] Address: [address] [place] [address] Performed By: #### 3 255-7, 63694-2 ####[facility] LABIA [id number] [place] [address] [place] Hepatic function 2000 panelo n 11-14-2024 Albumin [Mass/Vol] 2.8 g/dL Low 3.9-4.9 [facility] Comment on above: Order Comment: Speci men Type: BLOOD SPECIMENOrdering Facility: [facility] [place] Address: [address] [place] [address] Performed By: #### 2 4321-2, 82975-1, 2777-1, 72355-2 ####[facility] LABIA [id number] [place] [address] [place] ALP [Catalytic activity/Vol] 248 U/L High 38-113 [facility] Comment on above: Order Comment: Speci men Type: BLOOD SPECIMENOrdering Facility: [facility] [place] Address: [address] [place] [address] Performed By: #### 2 4321-2, 34044-4, 2776-08, ####[facility] LABCLIA [id number] [address] [address] [place] ALT [Catalytic activity/Vol] 29 U/L Normal 10-54 [facility] Comment on above: Order Comment: Speci men Type: BLOOD SPECIMENOrdering Facility: [facility] [place] Address: [address] [place] [address] Performed By: #### 2 4321-2, 13804-4, 2776-08, ####[facility] LABCLIA [id number] [place] [address] [place] AST [Catalytic activity/Vol] 62 U/L High 14-40 [facility] Comment on above: Order Comment: Speci men Type: BLOOD SPECIMENOrdering Facility: [facility] [place] Address: [address] [place] [address] Performed By: #### 2 4321-2, 31469-1, 2776-08, ####[facility] LABCLIA [id number] [place] [id number] [place] Bilirubin [Mass/Vol] 1.7 mg/dL High 0.2-1.3 [facility] Comment on above: Order Comment: Speci men Type: BLOOD SPECIMENOrdering Facility: [facility] [place] Address: [address] [place] [address] Performed By: #### 2 4321-2, 43982-0, 2776-08, ####[facility] LABCLIA [id number] [address] [address] [place] Bilirubin.conjugated [Mass/Vol] 1.0 mg/dL High <0.3 [facility] Comment on above: Order Comment: Speci men Type: BLOOD SPECIMENOrdering Facility: [facility] [place] Address: [address] [place] [address] Performed By: #### 2 4321-2, 90316-5, 2777-1, 67107-7 ####[facility] LABIA [id number] [place] [id number] [place] Protein [Mass/Vol] 5.4 g/dL Low 6.3-8.0 [facility] Comment on above: Order Comment: Speci men Type: BLOOD SPECIMENOrdering Facility: [facility] [place] Address: [address] [place] [address] Performed By: #### 2 4321-2, 28757-0, 2776-1, ####[facility] [id number] [place] [address] [place] Magnesium SerPl-mCncon 11-14 Magnesium [Mass/Vol] 1.6 mg/dL Low 1.7-2.3 [facility] Comment on above: Order Comment: Speci men Type: BLOOD SPECIMENOrdering Facility: [facility] [place] Address: [address] [place] [address] Performed By: #### 2 4321-2, 26817-5, 2777-1, ####[facility] [id number] [place] [id number] [place] PT panel Coag (PPP)on 2024 INR Coag (PPP) [Relative time] 1.8 {INR} High 0.9-1.3 [facility] Comment on above: Order Comment: Speci men Type: BLOOD SPECIMENOrdering Facility: [facility] [place] Address: [address] [place] [address] Result Comment: Sarah min K Antagonist (VKA) Therapeutic Range: INR 2 to 3 (Target INR of 2.5)Note: For patients treated with VKA drugs, such as warfarin, the [employer] 2012 Guideline recommends [...] al. Chest 2012, 141:7S-47SNishimura RA, et al. [facility] 2017, 70: 252-289 Performed By: #### 3 255-7, 58278-4 ####[facility] [id number] [place] [address] [place] PT Coag (PPP) [Time] 19.2 s High 9.7-13.0 [facility] Comment on above: Order Comment: Speci men Type: BLOOD SPECIMENOrdering Facility: [facility] [place] Address: [address] [place] [address] Performed By: #### 3 255-7, 12155-8 ####[facility] [id number] [place] [address] [place] Phosphate SerPl-mCncon 11-14 Phosphate [Mass/Vol] 1.9 mg/dL Low 2.7-4.8 [facility] Comment on above: Order Comment: Speci men Type: BLOOD SPECIMENOrdering Facility: [facility] [place] Address: [address] [place] [address] Performed By: #### 2 4321-2, 72963-7, 2777-1, 42111-0 ####[facility] LABIA [id number] [place] [address] [place] URINALYSIS, REFLEX MICROSCOP ICon 11-14-2024 Bacteria LM.HPF (Urine sed) [#/Area] Negative Normal Negative [facility] Comment on above: Order Comment: Speci men Type: URINE SPECIMENOrdering Facility: [facility] [place] Address: [address] [place] [address] Performed By: #### L [id number] ####[facility] LABCLIA [id number] [place] [address] [place] Bilirubin Ql (U) 1+ Abnormal Negative [facility] Comment on above: Order Comment: Speci men Type: URINE SPECIMENOrdering Facility: [facility] [place] Address: [address] [place] [address] Result Comment: Sugg est correlation with clinical findings and serum bilirubin if clinically indicated. Performed By: #### L [id number] ####[facility] LABCLIA [id number] [place] [address] [place] Clarity (Unsp spec) Cloudy Abnormal Clear [facility] Comment on above: Order Comment: Speci men Type: URINE SPECIMENOrdering Facility: [facility] [place] Address: [address] [place] [address] Performed By: #### L [id number] ####[facility] LABCLIA [id number] [place] [address] [place] Color (U) [place] Abnormal Yellow [facility] Comment on above: Order Comment: Speci men Type: URINE SPECIMENOrdering Facility: [facility] [place] Address: [address] [place] [address] Performed By: #### L [id number] ####[facility] LABCLIA [id number] [place] [address] [place] Epithelial cells LM.HPF (Urine sed) [#/Area] None Seen Normal [facility] Comment on above: Order Comment: Speci men Type: URINE SPECIMENOrdering Facility: [facility] [place] Address: [address] [place] [address] Performed By: #### L [id number] ####[facility] LABCLIA [id number] [address] [place] [address] [place] Glucose Test strip (U) [Mass/Vol] Negative Normal Negative [facility] Comment on above: Order Comment: Speci men Type: URINE SPECIMENOrdering Facility: [facility] [place] Address: [address] [place] [address] Performed By: #### L [id number] ####[facility] LABCLIA [id number] [address] [address] [place] Hemoglobin Ql (U) 3+ Abnormal Negative [facility] Comment on above: Order Comment: Speci men Type: URINE SPECIMENOrdering Facility: [facility] [place] Address: [address] [place] [address] Performed By: #### L [id number] ####[facility] LABCLIA [id number] [place] [address] [place] Hyaline casts (Urine sed) [#/Area] 0 /[LPF] Normal 0 /LPF [facility] Comment on above: Order Comment: Speci men Type: URINE SPECIMENOrdering Facility: [facility] [place] Address: [address] [place] [address] Performed By: #### L [id number] ####[facility] LABCLIA [id number] [place] [id number] [place] Ketones Ql (U) Negative Normal Negative [facility] Comment on above: Order Comment: Speci men Type: URINE SPECIMENOrdering Facility: [facility] [place] Address: [address] [place], [place] [address] Performed By: #### L [id number] ####[facility] LABCLIA [id number] [place] [id number] [place] Leukocyte esterase Test strip Ql (U) 3+ Abnormal Negative [facility] Comment on above: Order Comment: Speci men Type: URINE SPECIMENOrdering Facility: [facility] [place] Address: [address] [place] [address] Performed By: #### L [id number] ####[facility] LABIA [id number] [place] [address] [place] Nitrite Ql (U) Negative Normal Negative [facility] Comment on above: Order Comment: Speci men Type: URINE SPECIMENOrdering Facility: [facility] [place] Address: [address] [place] [address] Performed By: #### L [id number] ####[facility] LABIA [id number] [place] [address] [place] pH (U) 6.0 [pH] Normal <8.5 [facility] Comment on above: Order Comment: Speci men Type: URINE SPECIMENOrdering Facility: [facility] [place] Address: [address] [place] [address] Performed By: #### L [id number] ####[facility] LABIA [id number] [place] [address] [place] Protein (U) [Mass/Vol] 2+ Abnormal Negative Cl [facility] Comment on above: Order Comment: Speci men Type: URINE SPECIMENOrdering Facility: [facility] [place] Address: [address] [place] [address] Performed By: #### L [id number] ####[facility] LABIA [id number] [place] [address] [place] RBC LM.HPF (Urine sed) [#/Area] /[HPF] Abnormal 0-2 /HPF [facility] Comment on above: Order Comment: Speci men Type: URINE SPECIMENOrdering Facility: [facility] [place] Address: [address] [place] [address] Performed By: #### L [id number] ####[facility] LABIA [id number] [place] [address] [place] Specific gravity (U) [Rel density] 1.017 Normal 1.005-1.030 [facility] Comment on above: Order Comment: Speci men Type: URINE SPECIMENOrdering Facility: [facility] [place] Address: [address] [place] [address] Performed By: #### L [id number] ####[facility] LABIA [id number] [place] [address] [place] Urobilinogen Ql (U) 0.2 EU/dL Normal 0.2-1.0 EU/dL [facility] Comment on above: Order Comment: Speci men Type: URINE SPECIMENOrdering Facility: [facility] [place] Address: [address] [place] [address] Performed By: #### L [id number] ####[facility] [id number] [place] [address] [place] WBC LM.HPF (Urine sed) [#/Area] /[HPF] Abnormal 0-5 /HPF [facility] Comment on above: Order Comment: Speci men Type: URINE SPECIMENOrdering Facility: [facility] [place] Address: [address] [place] [address] Performed By: #### L [id number] ####[facility] [id number] [place] [address] [place] Yeast.budding LM.HPF (Urine sed) [#/Area] Present Abnormal None Seen [facility] Comment on above: Order Comment: Speci men Type: URINE SPECIMENOrdering Facility: [facility] [place] Address: [address] [place] [address] Performed By: #### L [id number] ####[facility] [id number] [place] [address] [place] 25(OH)D3 Elaina-alton 2024 25-hydroxyvitamin D3 [Mass/Vol] 16.2 ng/mL Low 31.0-80.0 [facility] Comment on above: Order Comment: Speci men Type: BLOOD SPECIMENOrdering Facility: [facility] [place] Address: [address] [place] [address] Performed By: #### 7 852-7, MEASLG, VZVG2, 1988- ####[facility] LABCLIA [id number] [place] [address] [place] A-Tocopherol Vit E SerPl-mCn con 11-13-2024 Alpha tocopherol [Mass/Vol] 3.3 mg/L Low 6.0-23.0 [facility] Comment on above: Order Comment: Speci men Type: BLOOD SPECIMENOrdering Facility: [facility] [place] Address: [address] [place] [address] Performed By: #### 2 923-1, 1823-4 ####[facility] LABIA [id number] [place] [address] [place] ALPHA-1 ANTITRYPSIN GENOon 0 11-13-2024 HA1AT REVIEWED BY [facility] Comment on above: Order Comment: Speci men Type: BLOOD SPECIMENOrdering Facility: [facility] [place] Address: [address] [place] [address] Result Comment: Alph a-1 Antitrypsin GenotypingLaboratory Accession Number: [id number]:No Variant Detected in SERPINA1 (PI*MM)Interpretation:DNA testing indicates [...] the two mostcommon pathogenic variants: S (c.863A>T, p.Ekp455Swu, g.64033698), Z(c.1096G>A, p.Evy375Uwt, g.07053178), and the rarer variants: F(c.739C>T, p.God059Ipw, g.76997656), I (c.187C>T, p.Oqa45Qog,g.09186098).Limitations:This Laboratory Developed Test (LDT) is designed to [...] was developed and its performance characteristics determinedby [facility]'s [facility] Department. Ithas not been cleared or approved by the FDA. [facility] is regulated under CLIAas certified to perform high-complexity testing. This test is used forclinical purposes. It should not be regarded as investigational or forresearch.Test performed at [facility], [address] [place] [address], [id number]. CLIA Number: [id number]:1) Kait HIRSCH, Samir Manjarrez, Essnece DELGADO, Ilan M, Kai CE, K,Jadyn DK, Princess SL, Suman GOMEZ, Ivania MARIE, Haider Guillory, Renée J.The Diagnosis and Management of Alpha-1 Antritrypsin Deficiency inthe Adult. Chronic Obstr Pulm Dis. 2016 Jan 07;3:668-682.2) Renee JA, Linsey ON, Rachele ER, Khushi DG. a1-Antitrypsinphenotypes and associated serum protein concentrations in a largeclinical population. Chest.2013 Nov;143(4):1000-8.3) Elmo A, Toña NA, Brad CR, Jennifer FJ, Salvador SJ, Nicole. Molecular characterisation of three tsxne-4-ketettcmimn deficiencyvariants: proteinase inhibitor (Pi) nullcardiff (Ehc917----Trx);PiMmalton (Fqb22----ckamstga) and PiI (Kta90----Ojc). Hum Trisha. 1988Dec;84(1):55-8.4) Flor EK and Kait HIRSCH. Clinical practice.Alpha1-antitrypsin deficiency. N Engl J Med. 2008;360(44)1345-98.5) Margot NJ, Kwame F, Prakash HIRSCH. The significance of the F variantof ejftj-1-prjfcbhxeqp and unique case report of a PiFF homozygote.[facility] Pulm Med. 2013Mar 10;14:132.6) Ivania MARIE, Elena SHETTY, and Jaziel Carlson. Alpha-1 AntitrypsinDeficiency. 2005May 30 [Updated 2017 August 22]. In: Juanito HIRSCH, Barbara, Nemesio TO, et al., editors. GeneReviews [Internet]. [place] ([place]):[employer], [place]; 8607-1423. Available from:http://www.ncbi.nlm.nih.gov/books/WBB4636/Interpretation performed at remote location (R0A1) by Fifi España MD Performed By: #### H A1AT ####[facility] [id number] [address] [facility] ANES POSTPROC EVALon 025 ANES POSTPROC EVAL Normal [facility] ANES PRE-OPon 11-13-2024 ANES PRE-OP Normal [facility] Alpha tocopherol [Mass/Vol]o n 11-13-2024 Beta+gamma tocopherol [Mass/Vol] 0.6 mg/L Normal 0.3-3.2 [facility] Comment on above: Order Comment: Speci men Type: BLOOD SPECIMENOrdering Facility: [facility] [facility] [place] Address: [address] [place] [address] Result Comment: This test was developed, and its performance characteristics determined by the [facility] Department of Pathology and Laboratory Medicine. It has not been cleared or approved by the FDA. The [facility] Department of Pathology and Laboratory Medicine is regulated under CLIA as qualified to perform high-complexity testing. This test is used for clinical purposes. It should not be regarded as investigational or for research. Performed By: #### 2 923-1, 1823-4 ####[facility] LABCLIA [id number] [place] [id number] [place] Basic metabolic 2000 panelon 11-13-2024 Anion gap [Moles/Vol] 9 mmol/L Normal 8-15 [facility] Comment on above: Order Comment: Speci men Type: BLOOD SPECIMENOrdering Facility: [facility] [place] Address: [address] [place] [address] Performed By: #### 2 4321-2, 50485-3, 53494-9, 11654-5 ####[facility] LABCLIA [id number] [place] [id number] [place] Calcium [Mass/Vol] 9.1 mg/dL Normal 8.5-10.2 [facility] Comment on above: Order Comment: Speci men Type: BLOOD SPECIMENOrdering Facility: [facility] [place] Address: [address] [place] [address] Performed By: #### 2 4321-2, 57953-6, 57958-4, 23572-0 ####[facility] LABCLIA [id number] [place] [id number] [place] Chloride [Moles/Vol] 99 mmol/L Normal 98-107 [facility] Comment on above: Order Comment: Speci men Type: BLOOD SPECIMENOrdering Facility: [facility] [place] Address: [address] [place] [address] Performed By: #### 2 4321-2, 55176-2, 11026-6, 41705-9 ####[facility] LABCLIA [id number] [place] [address] [place] CO2 [Moles/Vol] 16 mmol/L Low 22-30 [facility] Comment on above: Order Comment: Speci men Type: BLOOD SPECIMENOrdering Facility: [facility] [place] Address: [address] [place] [address] Performed By: #### 2 4321-2, 53169-5, 60280-3, 90579-1 ####[facility] LABCLIA [id number] [place] [address] [place] Creatinine [Mass/Vol] 1.10 mg/dL Normal 0.73-1.22 [facility] Comment on above: Order Comment: Speci men Type: BLOOD SPECIMENOrdering Facility: [facility] [place] Address: [address] [place] [address] Performed By: #### 2 4321-2, 04997-8, 17470-4, 88772-7 ####[facility] LABIA [id number] [place] [address] [place] Creatinine and Glomerular filtration rate.predicted panel (S/P/Bld) 78 mL/min/1.73m??? Normal >=60 [facility] Comment on above: Order Comment: Speci men Type: BLOOD SPECIMENOrdering Facility: [facility] [place] Address: [address] [place] [address] Result Comment: Patric mated Glomerular Filtration Rate [...] actual GFR. Performed By: #### 2 4321-2, 39902-6, 31538-1, 90048-6 ####[facility] LABCLIA [id number] [address] [address] [place] Glucose [Mass/Vol] 278 mg/dL High 74-99 [facility] Comment on above: Order Comment: Ezekiel ramirez Type: BLOOD SPECIMENOrdering Facility: [facility] [place] Address: [address] [place] [address] Result Comment: The [place] Diabetes Association (ADA) provides guidance for cutoff [...] Standards of Medical Care in Diabetes 2016, [place] [employer]. Diabetes Care. 2016.39(Suppl 1). Performed By: #### 2 4321-2, 44205-2, 46831-0, 69666-7 ####[facility] LABIA [id number] [address] [address] [place] Potassium [Moles/Vol] 4.1 mmol/L Normal 3.7-5.1 [facility] Comment on above: Order Comment: Ezekiel ramirez Type: BLOOD SPECIMENOrdering Facility: [facility] [place] Address: [address] [place] [address] Performed By: #### 2 4321-2, 30231-8, 90040-2, 23984-7 ####[facility] LABCLIA [id number] [address] [address] [place] Sodium [Moles/Vol] 124 mmol/L Low 136-144 [facility] Comment on above: Order Comment: Speci men Type: BLOOD SPECIMENOrdering Facility: [facility] [place] Address: [address] [place] [address] Performed By: #### 2 4321-2, 04879-3, 56901-3, 07092-0 ####[facility] LABCLIA [id number] [place] [address] [place] Urea nitrogen [Mass/Vol] 20 mg/dL Normal 9-24 [facility] Comment on above: Order Comment: Speci men Type: BLOOD SPECIMENOrdering Facility: [facility] [place] Address: [address] [place] [address] Performed By: #### 2 4321-2, 08069-3, 70362-9, 98826-5 ####[facility] LABIA [id number] [place] [address] [place] CBC W Auto Differential pane l (Bld)on 11-13-2024 Basophils (Bld) [#/Vol] 10*3/uL Normal <0.11 C [facility] Comment on above: Order Comment: Speci men Type: BLOOD SPECIMENOrdering Facility: [facility] [place] Address: [address] [place] [address] Performed By: #### 5 7021-8 ####[facility] LABCLIA [id number] [place] [id number] [place] Basophils/100 WBC (Bld) 0.4 % Normal C [facility] Comment on above: Order Comment: Speci men Type: BLOOD SPECIMENOrdering Facility: [facility] [place] Address: [address] [place] [address] Performed By: #### 5 7021-8 ####[facility] LABCLIA [id number] [place] [address] [place] Differential cell count method Nom (Bld) Auto Normal [facility] Comment on above: Order Comment: Speci men Type: BLOOD SPECIMENOrdering Facility: [facility] [place] Address: [address] [place] [address] Performed By: #### 5 7021-8 ####[facility] LABCLIA [id number] [place] [address] [place] Eosinophils (Bld) [#/Vol] 0.18 10*3/uL Normal <0.46 [facility] Comment on above: Order Comment: Speci men Type: BLOOD SPECIMENOrdering Facility: [facility] [place] Address: [address] [place] [address] Performed By: #### 5 7021-8 ####[facility] LABCLIA [id number] [place] [address] [place] Eosinophils/100 WBC (Bld) 3.3 % Normal [facility] Comment on above: Order Comment: Speci men Type: BLOOD SPECIMENOrdering Facility: [facility] [place] Address: [address] [place] [address] Performed By: #### 5 7021-8 ####[facility] LABCLIA [id number] [place] [address] [place] Erythrocyte distribution width (RBC) [Ratio] 17.0 % High 11.5-15.0 [facility] Comment on above: Order Comment: Speci men Type: BLOOD SPECIMENOrdering Facility: [facility] [place] Address: [address] [place] [address] Performed By: #### 5 7021-8 ####[facility] LABCLIA [id number] [place] [address] [place] Hematocrit (Bld) [Volume fraction] 21.6 % Low 39.0-51.0 [facility] Comment on above: Order Comment: Speci men Type: BLOOD SPECIMENOrdering Facility: [facility] [place] Address: [address] [place] [address] Performed By: #### 5 7021-8 ####[facility] LABCLIA [id number] [place] [address] [place] Hemoglobin (Bld) [Mass/Vol] 7.4 g/dL Low 13.0-17.0 [facility] Comment on above: Order Comment: Speci men Type: BLOOD SPECIMENOrdering Facility: [facility] [place] Address: [address] [place] [address] Performed By: #### 5 7021-8 ####[facility] LABCLIA [id number] [place] [address] [place] Immature granulocytes (Bld) [#/Vol] 0.04 10*3/uL Normal <0.10 [facility] Comment on above: Order Comment: Speci men Type: BLOOD SPECIMENOrdering Facility: [facility] [place] Address: [address] [place] [address] Performed By: #### 5 7021-8 ####[facility] LABIA [id number] [place] [address] [place] Immature granulocytes/100 WBC (Bld) 0.7 % Normal [facility] Comment on above: Order Comment: Speci men Type: BLOOD SPECIMENOrdering Facility: [facility] [place] Address: [address] [place] [address] Performed By: #### 5 7021-8 ####[facility] LABCLIA [id number] [place] [address] [place] Lymphocytes (Bld) [#/Vol] 0.64 10*3/uL Low 1.00-4.00 [facility] Comment on above: Order Comment: Speci men Type: BLOOD SPECIMENOrdering Facility: [facility] [place] Address: [address] [place] [address] Performed By: #### 5 7021-8 ####[facility] LABCLIA [id number] [place] [address] [place] Lymphocytes/100 WBC (Bld) 11.6 % Normal [facility] Comment on above: Order Comment: Speci men Type: BLOOD SPECIMENOrdering Facility: [facility] [place] Address: [address] [place] [address] Performed By: #### 5 7021-8 ####[facility] LABIA [id number] [place] [address] [place] MCH (RBC) [Entitic mass] 31.8 pg Normal 26.0-34.0 [facility] Comment on above: Order Comment: Speci men Type: BLOOD SPECIMENOrdering Facility: [facility] [place] Address: [address] [place] [address] Performed By: #### 5 7021-8 ####[facility] LABIA [id number] [place] [address] [place] MCHC (RBC) [Mass/Vol] 34.3 g/dL Normal 30.5-36.0 [facility] Comment on above: Order Comment: Speci men Type: BLOOD SPECIMENOrdering Facility: [facility] [place] Address: [address] [place] [address] Performed By: #### 5 7021-8 ####[facility] LABIA [id number] [place] [address] [place] MCV (RBC) [Entitic vol] 92.7 fL Normal 80.0-100.0 C [facility] Comment on above: Order Comment: Speci men Type: BLOOD SPECIMENOrdering Facility: [facility] [place] Address: [address] [place] [address] Performed By: #### 5 7021-8 ####[facility] LABIA [id number] [place] [address] [place] Monocytes (Bld) [#/Vol] 0.68 10*3/uL Normal <0.87 [facility] Comment on above: Order Comment: Speci men Type: BLOOD SPECIMENOrdering Facility: [facility] [place] Address: [address] [place] [address] Performed By: #### 5 7021-8 ####[facility] LABCLIA [id number] [address] [address] [place] Monocytes/100 WBC (Bld) 12.4 % Normal [facility] Comment on above: Order Comment: Speci men Type: BLOOD SPECIMENOrdering Facility: [facility] [place] Address: [address] [place] [address] Performed By: #### 5 7021-8 ####[facility] LABCLIA [id number] [place] [address] [place] Neutrophils (Bld) [#/Vol] 3.94 10*3/uL Normal 1.45-7.50 [facility] Comment on above: Order Comment: Speci men Type: BLOOD SPECIMENOrdering Facility: [facility] [place] Address: [address] [place] [address] Performed By: #### 5 7021-8 ####[facility] LABCLIA [id number] [address] [place] Neutrophils/100 WBC (Bld) 71.6 % Normal [facility] Comment on above: Order Comment: Speci men Type: BLOOD SPECIMENOrdering Facility: [facility] [place] Address: [address] [place] [address] Performed By: #### 5 7021-8 ####[facility] LABCLIA [id number] [place] [id number] [place] Nucleated RBC (Bld) [#/Vol] 10*3/uL Normal <0.01 [facility] Comment on above: Order Comment: Speci men Type: BLOOD SPECIMENOrdering Facility: [facility] [place] Address: [address] [place] [address] Performed By: #### 5 7021-8 ####[facility] LABCLIA [id number] [place] [address] [place] Nucleated RBC/100 WBC (Bld) [Ratio] 0.0 /100 WBC Normal [facility] Comment on above: Order Comment: Speci men Type: BLOOD SPECIMENOrdering Facility: [facility] [place] Address: [address] [place] [address] Performed By: #### 5 7021-8 ####[facility] LABIA [id number] [place] [address] [place] Platelet mean volume (Bld) [Entitic vol] 11.7 fL Normal 9.0-12.7 [facility] Comment on above: Order Comment: Speci men Type: BLOOD SPECIMENOrdering Facility: [facility] [place] Address: [address] [place] [address] Performed By: #### 5 7021-8 ####[facility] [id number] [place] [address] [place] Platelets (Bld) [#/Vol] 38 10*3/uL Low 150-400 C [facility] Comment on above: Order Comment: Speci men Type: BLOOD SPECIMENOrdering Facility: [facility] [place] Address: [address] [place] [address] Result Comment: Resu lts checked and verified.No clot detected. Performed By: #### 5 7021-8 ####[facility] LABIA [id number] [place] [address] [place] RBC (Bld) [#/Vol] 2.33 10*6/uL Low 4.20-6.00 [facility] Comment on above: Order Comment: Speci men Type: BLOOD SPECIMENOrdering Facility: [facility] [place] Address: [address] [place] [address] Performed By: #### 5 7021-8 ####[facility] [id number] [place] [address] [place] WBC (Bld) [#/Vol] 5.50 10*3/uL Normal 3.70-11.00 [facility] Comment on above: Order Comment: Speci men Type: BLOOD SPECIMENOrdering Facility: [facility] [place] Address: [address] [place] [address] Performed By: #### 5 7021-8 ####[facility] LABCLIA [id number] [place] [address] [place] CMV IgG Qnon 11-13-2024 CMV IGG QUAL Negative Normal Negative [facility] Comment on above: Order Comment: Speci men Type: BLOOD SPECIMENOrdering Facility: [facility] [place] Address: [address] [place] [address] Result Comment: No s erological evidence of past exposure to Cytomegalovirus. Cannot exclude recent infection if the specimen collected within 4-6 weeks after infection. Performed By: #### 7 852-7, MEASLG, VZVG2, 1988-10 ####[facility] LABCLIA [id number] [place] [address] [place] CMV IgG SerPl-aCncon 025 CMV IgG Qn 0.37 U/mL Normal [facility] Comment on above: Order Comment: Speci men Type: BLOOD SPECIMENOrdering Facility: [facility] [place] Address: [address] [place] [address] Result Comment: The magnitude of the measured result is not indicative of the amount of antibody present.U/mL values are interpreted as follows:Negative <0.6Equivocal 0.6 to <0.70Positive >=0.70 Performed By: #### 7 852-7, MEASLG, VZVG2, 1988-10 ####[facility] LABCLIA [id number] [place] [address] [place] CONSULT PROGon 11-13-2024 CONSULT PROG Normal [facility] CYTOLOGY NON-GYNon AP DISCLAIMER Normal [facility] Comment on above: Order Comment: Speci men Type: FLUID SPECIMENOrdering Facility: [facility] [place] Address: [address] [place] [address] Result Comment: Shellie pugh Developed Test (LDT) Disclaimer:Performance characteristics of immunohistochemical, immunofluorescent, and chromogenic in-situ hybridization tests have been determined by the performing laboratory within [facility]'s [facility] Pathology and Laboratory Medicine Department ([facility], [facility], [facility], [facility], [facility], [facility], or [facility]) in a manner consistent with CLIA requirements. One or more of these tests may not have been cleared or approved by the FDA. [facility] is regulated under CLIA as qualified to perform high-complexity testing. These tests are used for clinical purposes. These should not be regarded as investigational or for research. Positive and negative controls stain appropriately. Performed By: #### C YTONON ####[facility] LABCLIA [id number] [place] [address] [place] CASE REPORT Normal [facility] Comment on above: Order Comment: Speci men Type: FLUID SPECIMENOrdering Facility: [facility] [place] Address: [address] [place] [address] Result Comment: [facility] Cytology Report Case: [id number] Provider: Deb Fox MD Collected: 11/13/2024 02:46 PMOrdering Location: [place] [address] Received: 11/15/2024 05:01 AMPathologist: Foster Newton MDSpecimen: Urine, Midstream Performed By: #### C YTONON ####[facility] LABCLIA [id number] [place] [address] [place] CLINICAL HISTORY Staghorn calculi, s/ p L sided stenting with hematuria Normal [facility] Comment on above: Order Comment: Speci men Type: FLUID SPECIMENOrdering Facility: [facility] [place] Address: [address] [place] [address] Performed By: #### C YTONON ####[facility] LABCLIA [id number] [place] [address] [place] DIAGNOSIS COMMENT Normal [facility] Comment on above: Order Comment: Speci men Type: FLUID SPECIMENOrdering Facility: [facility] [place] Address: [address] [place] [address] Result Comment: A. F ungal yeast forms are seen, morphologically consistent with Mary species. Clinical correlation is suggested. Performed By: #### C YTONON ####[facility] LABCLIA [id number] [place] [address] [place] FINAL DIAGNOSIS Normal [facility] Comment on above: Order Comment: Speci men Type: FLUID SPECIMENOrdering Facility: [facility] [place] Address: [address] [place] [address] Result Comment: A - Urine, Voided: Negative for high-grade urothelial carcinoma. Abundant acute inflammation (see comment). at 1141 EDT Performed By: #### C YTONON ####[facility] LABCLIA [id number] [address] [place] FINAL PERFORMING LAB Normal [facility] Comment on above: Order Comment: Speci men Type: FLUID SPECIMENOrdering Facility: [facility] [place] Address: [address] [place] [address] Result Comment: Tech nical component, zinc skimmer screening performed at: [facility], [address] [place] [address] CLIA: [id number] interpretation performed at: [facility], [address] [place], [place] [address] CLIA# [id number] Director: Titi Voss MD Performed By: #### C YTONON ####[facility] LABCLIA [id number] [place] [address] [place] GROSS DESCRIPTION Normal [facility] Comment on above: Order Comment: Speci men Type: FLUID SPECIMENOrdering Facility: [facility] [place] Address: [address] [place] [address] Result Comment: A. U rine, Rmpabjprt19 cc cloudy lexis fluid . ThinPrep prepared. Performed By: #### C YTONON ####[facility] LABCLIA [id number] [place] [address] [place] EBV capsid IgG Qn (S)on 11-02 EBV VCA IGG, QUAL Positive Abnormal Negative [facility] Comment on above: Order Comment: Speci men Type: BLOOD SPECIMENOrdering Facility: [facility] [place] Address: [address] [place] [address] Result Comment: The result suggests recent or past EBV infection. The final interpretation should be done in the context of other EBV serology panel results. Performed By: #### 8 039-0, 7885-7 ####[facility] LABIA [id number] [place] [address] [place] Fibrinogen PPP-mCncon 2024 Fibrinogen Coag (PPP) [Mass/Vol] 94 mg/dL Low 200-400 [facility] Comment on above: Order Comment: Ezekiel ramirez Type: BLOOD SPECIMENOrdering Facility: [facility] [place] Address: [address] [place] [address] Result Comment: Samp le checked for clot. Performed By: #### 3 4528-0, 3255-7 ####[facility] LABIA [id number] [place] [address] [place] HBV core Ab Ser Qlon 025 HBV core Ab Ql (S) Negative Normal Negative [facility] Comment on above: Order Comment: Ezekiel ramirez Type: BLOOD SPECIMENOrdering Facility: [facility] [place] Address: [address] [place] [address] Result Comment: No e vidence of current or past infection with Hepatitis B virus. Should recent infection be suspected, repeat testing may be considered 3-4 weeks after this draw. Performed By: #### 3 1201-7, 95639-1, [facility], 5194-3, 16994-4 ####[facility] LABCLIA [id number] [place] [address] [place] HBV surface Ab Ql (S)on 11-02 HBV surface Ab Qn (S) <8.00 Normal [facility] Comment on above: Order Comment: Speci men Type: BLOOD SPECIMENOrdering Facility: [facility] [place] Address: [address] [place] [address] Result Comment: <8 m IU/mL: No serological evidence of immunity to Hepatitis B Virus.>/= 8 to <12 mIU/mL: No serological evidence of immunity to Hepatitis B Virus.>/= 12 mIU/mL: Consistent with serological evidence of immunity to Hepatitis B Virus. Performed By: #### 3 1201-7, 38360-6, [facility], 5194-3, 21446-2 ####[facility] LABCLIA [id number] [address] [place] HBV surface Ab Ser Qlon 11-02 HBV surface Ab Ql (S) Negative Normal [facility] Comment on above: Order Comment: Speci men Type: BLOOD SPECIMENOrdering Facility: [facility] [place] Address: [address] [place] [address] Result Comment: No s erological evidence of immunity to Hepatitis B Virus. Performed By: #### 3 1201-7, 16156-6, [facility], 5194-3, 37981-6 ####[facility] LABCLIA [id number] [place] [address] [place] HBV surface Ag Ser Qlon 11-02 HBV surface Ag Ql (S) Negative Normal Negative [facility] Comment on above: Order Comment: Speci men Type: BLOOD SPECIMENOrdering Facility: [facility] [place] Address: [address] [place] [address] Performed By: #### 3 1201-7, 56884-2, [facility], 5194-3, 10710-3 ####[facility] LABCLIA [id number] [place] [address] [place] HCV Ab Ser Qlon 11-13-2024 HCV Ab Ql (S) Negative Normal Negative [facility] Comment on above: Order Comment: Speci men Type: BLOOD SPECIMENOrdering Facility: [facility] [place] Address: [address] [place] [address] Result Comment: The result suggests no evidence of infection with Hepatitis C virus. Should recent infection be suspected, repeat testing may be considered 4-6 weeks after this draw. Performed By: #### 1 6128-1 ####[facility] LABIA [id number] [place] [address] [place] HEPATITIS A ANTIBODY, IGGon 11-13-2024 HAV IgG Ql (S) Negative Normal [facility] Comment on above: Order Comment: Speci men Type: BLOOD SPECIMENOrdering Facility: [facility] [place] Address: [address] [place] [address] Result Comment: No s erological evidence of past exposure to hepatitis A virus or hepatitis A vaccination. Should recent infection be suspected, repeat testing is suggested 3-4 weeks after this draw. Performed By: #### 3 1201-7, 44057-5, AHAVG, 5195-3, 67949-4 ####[facility] LABCLIA [id number] [place] [address] [place] Performed By: #### 7 3752-8, AHAVG, STRSER, MUMPSG ####[facility] LABCLIA [id number] [place] [id number] [place] HIV 1+2 Ab IA Qlon 5 HIV 1 and 2 Ab IA.rapid Nom (S/P/Bld) Normal [facility] Comment on above: Order Comment: Speci men Type: BLOOD SPECIMENOrdering Facility: [facility] [place] Address: [address] [place] [address] Result Comment: Test not indicated. Performed By: #### 3 1201-7, 14550-9, AHAVG, 5195-3, 26676-0 ####[facility] LABIA [id number] [place] [address] [place] HIV 1+2 Ab+HIV1 p24 Ag IA Ql Non-Reactive Normal Nonreactive [facility] Comment on above: Order Comment: Speci men Type: BLOOD SPECIMENOrdering Facility: [facility] [place] Address: [address] [place] [address] Performed By: #### 3 1201-7, 76750-9, AHAVG, 5195-3, 64152-8 ####[facility] [id number] [place] [address] [place] HIV immunoassay testing algorithm interpretation (S/P/Bld) [Interp] Normal [facility] Comment on above: Order Comment: [facility] Type: BLOOD SPECIMENOrdering Facility: [facility] [place] Address: [address] [place] [address] Result Comment: No e vidence of HIV-1 or HIV-2 infection. Should recent infection be suspected, repeat testing may be considered 2-3 weeks after this draw.[place] Rev. Code 3701.243(E): This information has been [...] or diagnoses. Performed By: #### 3 1201-7, 85528-1, AHAVG, 5195-3, 51216-3 ####[facility] LABIA [id number] [place] [address] [place] Hepatic function 2000 panelo n 11-13-2024 Albumin [Mass/Vol] 2.8 g/dL Low 3.9-4.9 [facility] Comment on above: Order Comment: Speci men Type: BLOOD SPECIMENOrdering Facility: [facility] [place] Address: [address] [place] [address] Performed By: #### 2 4321-2, 27572-5, 84366-5, 37790-9 ####[facility] LABCLIA [id number] [place] [address] [place] ALP [Catalytic activity/Vol] 225 U/L High 38-113 [facility] Comment on above: Order Comment: Speci men Type: BLOOD SPECIMENOrdering Facility: [facility] [place] Address: [address] [place] [address] Performed By: #### 2 4321-2, 38118-4, 28807-5, 14688-0 ####[facility] LABCLIA [id number] [place] [address] [place] ALT [Catalytic activity/Vol] 22 U/L Normal 10-54 [facility] Comment on above: Order Comment: Speci men Type: BLOOD SPECIMENOrdering Facility: [facility] [place] Address: [address] [place] [address] Performed By: #### 2 4321-2, 81361-4, 66604-8, 83593-5 ####[facility] LABIA [id number] [place] [address] [place] AST [Catalytic activity/Vol] 36 U/L Normal 14-40 [facility] Comment on above: Order Comment: Speci men Type: BLOOD SPECIMENOrdering Facility: [facility] [place] Address: [address] [place] [address] Performed By: #### 2 4321-2, 52536-9, 01727-5, 44216-4 ####[facility] LABCLIA [id number] [place] [id number] [place] Bilirubin [Mass/Vol] 1.8 mg/dL High 0.2-1.3 [facility] Comment on above: Order Comment: Speci men Type: BLOOD SPECIMENOrdering Facility: [facility] [place] Address: [address] [place] [address] Performed By: #### 2 4321-2, 01087-8, 40300-6, 10234-9 ####[facility] LABCLIA [id number] [place] [address] [place] Bilirubin.conjugated [Mass/Vol] 0.9 mg/dL High <0.3 [facility] Comment on above: Order Comment: Speci men Type: BLOOD SPECIMENOrdering Facility: [facility] [place] Address: [address] [place] [address] Performed By: #### 2 4321-2, 72807-1, 56174-9, 53519-2 ####[facility] LABCLIA [id number] [place] [address] [place] Protein [Mass/Vol] 5.2 g/dL Low 6.3-8.0 [facility] Comment on above: Order Comment: Speci men Type: BLOOD SPECIMENOrdering Facility: [facility] [place] Address: [address] [place] [address] Performed By: #### 2 4321-2, 90769-4, 09354-3, 42438-1 ####[facility] LABCLIA [id number] [place] [address] [place] LIVER REC INIT W/Uon 025 ALLOGEN RESULTS TO FOLLOW See Allogen report to follow Normal [facility] Comment on above: Order Comment: Speci men Type: BLOOD SPECIMENOrdering Facility: [facility] [place] Address: [address] [place] [address] Performed By: #### L RIPW ####[facility]OR[facility]IESCLIA [id number] [place] [address] [place] LPa SerPl-mCncon 11-13-2024 Lipoprotein a [Mass/Vol] mg/dL Normal <30 [facility] Comment on above: Order Comment: Speci men Type: BLOOD SPECIMENOrdering Facility: [facility] [place] Address: [address] [place] [address] Performed By: #### 1 0835-7 ####[facility] LABCLIA [id number] [place] [id number] [facility] Lipid 1996 panelon 5 Cholesterol [Mass/Vol] 52 mg/dL Normal <200 [facility] Comment on above: Order Comment: Speci men Type: BLOOD SPECIMENOrdering Facility: [facility] [place] Address: [address] [place] [address] Result Comment: <200 mg/dL, Desirable 200-239 mg/dL, Borderline high>239 mg/dL, High Performed By: #### 2 4321-2, 07932-9, 11062-1, 85115-5 ####[facility] LABCLIA [id number] [address] STATES [address] [facility] Cholesterol in HDL [Mass/Vol] 17 mg/dL Low >39 [facility] Comment on above: Order Comment: Speci men Type: BLOOD SPECIMENOrdering Facility: [facility] [place] Address: [address] [place] [address] Result Comment: 40-5 9 mg/dL, Acceptable>59 mg/dL, High: Negative risk factor for coronary heart disease<40 mg/dL, Low: Positive risk factor for coronary heart disease Performed By: #### 2 4321-2, 44157-4, 46995-4, 43998-1 ####[facility] LABCLIA [id number] [place] [id number] [facility] [place] Cholesterol in LDL [Mass/Vol] 26 mg/dL Normal <100 [facility] Comment on above: Order Comment: Speci men Type: BLOOD SPECIMENOrdering Facility: [facility] [place] Address: [address] [place] [address] Result Comment: <100 mg/dL, Optimal 100-129 mg/dL, Near optimal/above optimal 130-159 mg/dL, Borderline high 160-189 mg/dL, High>189 mg/dL, Very highSecondary prevention optimal LDL Cholesterol levels are recommended to be < 70 mg/dL Performed By: #### 2 4321-2, 73163-3, 92900-5, 98160-1 ####[facility] LABIA [id number] [address] [address] [place] Cholesterol in LDL/Cholesterol in HDL [Mass ratio] 1.53 {ratio} Normal <2.54 [facility] Comment on above: Order Comment: Speci men Type: BLOOD SPECIMENOrdering Facility: [facility] [place] Address: [address] [place] [address] Result Comment: Refe rence:1. National Cholesterol Education Program ATP III Guideline At-A-Glance Quick Desk Reference: National Heart, Lung, and Blood [place]. National Institutes of Health. 2001: NIH Publication No. 01-3305.2. An International Atherosclerosis Society position paper: global recommendations for the management of dyslipidemia: executive summary, Atherosclerosis. 2014: 232(2):410-413. Performed By: #### 2 4321-2, 13956-6, 44701-9, 16367-8 ####[facility] LABIA [id number] [place] [id number] [place] Cholesterol in VLDL [Mass/Vol] 9 mg/dL Normal <30 [facility] Comment on above: Order Comment: Speci men Type: BLOOD SPECIMENOrdering Facility: [facility] [place] Address: [address] [place] [address] Performed By: #### 2 4321-2, 09502-9, 91827-6, 08199-1 ####[facility] LABIA [id number] [facility] [address] [address] [place] Cholesterol non HDL [Mass/Vol] 35 mg/dL Normal <130 [facility] Comment on above: Order Comment: Speci men Type: BLOOD SPECIMENOrdering Facility: [facility] [place] Address: [address] [place] [address] Result Comment: <130 mg/dL, Optimal 130-159 mg/dL, Near optimal/above optimal 160-189 mg/dL, Borderline high 190-219 mg/dL, High>219 mg/dL, Very highSecondary prevention optimal non HDL Cholesterol levels are recommended to be <100 mg/dL Performed By: #### 2 4321-2, 36190-1, 89821-6, 66518-8 ####[facility] LABCLIA [id number] [facility] [place] [address] [place] Cholesterol.total/Donna sterol in HDL [Mass ratio] 3.06 {ratio} Normal <5.10 [facility] Comment on above: Order Comment: Speci men Type: BLOOD SPECIMENOrdering Facility: [facility] [place] Address: [address] [place] [id number] Performed By: #### 2 4321-2, 07707-4, 54617-4, 76336-1 ####[facility] LABCLIA [id number] [facility] [address] [place] [address] [place] [facility] FASTING TIME 4 hrs Normal [facility] Comment on above: Order Comment: Speci men Type: BLOOD SPECIMENOrdering Facility: [facility] [place] Address: [address] [place] [id number] Performed By: #### 2 4321-2, 32108-1, 29627-4, 59964-1 ####[facility] LABCLIA [id number] [facility] [address] [place] [address] [place] Triglyceride [Mass/Vol] 45 mg/dL Normal <150 [facility] Comment on above: Order Comment: Speci men Type: BLOOD SPECIMENOrdering Facility: [facility] [place] Address: [address] [place] [address] Result Comment: <150 mg/dL, Normal 150-199 mg/dL, Borderline high 200-499 mg/dL, High>499 mg/dL, Very high Performed By: #### 2 4321-2, 26340-6, 51762-8, 20507-8 ####[facility] LABCLIA [id number] [facility] [place], [place] [address] [place] MUMPS IGG ABon 11-13-2024 MuV IgG Ql (S) Negative Abnormal Positive [facility] Comment on above: Order Comment: Speci men Type: BLOOD SPECIMENOrdering Facility: [facility] [place] Address: [address] [place] [address] Result Comment: The result suggests no history of Mumps vaccination or exposure to Mumps virus, however, some individuals with past history of Mumps vaccination may test negative using this test. Please correlate with past history of vaccination if applicable. Performed By: #### 7 3752-8, AHAVG, STRSER, MUMPSG ####[facility] LABCLIA [id number] [address] [place] NT-proBNP SerPl-mCncon 11-13 Natriuretic peptide.B prohormone N-Terminal [Mass/Vol] 1047 pg/mL High <125 [facility] Comment on above: Order Comment: Speci men Type: BLOOD SPECIMENOrdering Facility: [facility] [place] Address: [address] [place] [address] Performed By: #### 2 4321-2, 38039-2, 13440-7, 31388-0 ####[facility] LABCLIA [id number] [place] [address] [place] [facility] [place] NURSING PROGon 11-13-2024 NURSING PROG Normal [facility] NURSING PROG Normal [facility] PHOSPHATIDYLETHANOL (PETH)on 11-13-2024 EER PETH See Note Normal [facility] Comment on above: Order Comment: Speci men Type: BLOOD SPECIMENOrdering Facility: [facility] [place] Address: [address] [place] [address] Result Comment: Auth orized individuals can access the [facility] Enhanced Reportwith an [facility] Connect account using the following link.Your local lab can assist you in obtaining the patientreport if you don't have a Connect account.[email or web address] Performed By: #### P ETH ####[facility] LABORATORIESCLIA [id number] [place] [address] PETH 16:0/18.2 (PLPETH) <10 Normal C [facility] Comment on above: Order Comment: Speci men Type: BLOOD SPECIMENOrdering Facility: [facility] [place] Address: [address] [place] [address] Result Comment: Refe rence ranges are not well established. Performed By: #### P ETH ####[facility] LABORATORIESCLIA [id number] [place] [address] PETH 16:0/18:1 (POPETH) <10 Normal C [facility] Comment on above: Order Comment: Speci men Type: BLOOD SPECIMENOrdering Facility: [facility] [place] Address: [address] [place] [address] Result Comment: PEth 16:0/18:1 (POPEth)Less than 10 ng/mL............Not detectedLess than 20 ng/mL............Abstinence or light qwhhfccgtpgiyfctbz64 - 200 ng/mL................Moderate alcohol consumptionGreater than 200 ng/mL........Heavy alcohol consumption or chronicalcohol use(Reference: Alonso Landaverde and Mathew Ha 2018 J. Forensic Sci) Performed By: #### P ETH ####[facility]OR[facility]IESIA [id number] [place] [address] PETH INTERPRETATION See Comment Normal [facility] Comment on above: Order Comment: Speci men Type: BLOOD SPECIMENOrdering Facility: [facility] [place] Address: [address] [place] [address] Result Comment: Phos phatidylethanol (PEth) is a [...] was developed and its performance characteristicsdetermined by [employer]. It has not been cleared orapproved by the U.S. Food and Drug Administration. This test wasperformed in a CLIA-certified laboratory and is intended forclinical purposes.Performed By: [employer] [place], [place] [address]Ubcvxuvbwp Director: Lizandro Ordonez MD, PhDCLIA Number: [id number] Performed By: #### P ETH ####NJWiscomm MicrosystemsIA [id number] [place] [address] PT panel Coag (PPP)on 2024 INR Coag (PPP) [Relative time] 1.9 {INR} High 0.9-1.3 [facility] Comment on above: Order Comment: Speci men Type: BLOOD SPECIMENOrdering Facility: [facility] [place] Address: [address] [place] [address] Result Comment: Sarah min K Antagonist (VKA) Therapeutic Range: INR 2 to 3 (Target INR of 2.5)Note: For patients treated with VKA drugs, such as warfarin, the [place] [employer] 2012 Guideline recommends [...] al. Chest 2012, 141:7S-47SNishimura RA, et al. [facility] 2017, 70: 252-289 Performed By: #### 3 4528-0, 5-7 ####[facility] LABCLIA [id number] [address] [place] PT Coag (PPP) [Time] 19.9 s High 9.7-13.0 [facility] Comment on above: Order Comment: Speci men Type: BLOOD SPECIMENOrdering Facility: [facility] [place] Address: [address] [place] [address] Performed By: #### 3 4528-0, 3255-02 ####[facility] LABCLIA [id number] [address] Pathology biopsy report Marco Antonio (Tiss)on 11-13-2024 AP DISCLAIMER Normal [facility] Comment on above: Order Comment: Speci men Type: TISSUE SPECIMENOrdering Facility: [facility] [place] Address: [address] [place] [address] Result Comment: Shellie pugh Developed Test (LDT) Disclaimer:Performance characteristics of immunohistochemical, immunofluorescent, and chromogenic in-situ hybridization tests have been determined by the performing laboratory within [facility]'s Thai Jackie [facility] Pathology and Laboratory Medicine Department ([facility], [facility], [facility], [facility], [facility], [facility], or [facility]) in a manner consistent with CLIA requirements. [...] Performed By: #### 6 6121-5 ####[facility]ORATORYCLIA [id number] [address] OF [facility] LABCLIA [id number] [place] [address] [place] CASE REPORT Normal [facility] Comment on above: Order Comment: Speci men Type: TISSUE SPECIMENOrdering Facility: [facility] [place] Address: [address] [place] [address] Result Comment: Surg ical Pathology Report Case: [id number] Provider: Thai Pineda MD Collected: 11/13/2024 09:40 AMOrdering Location: [place] [address] Received: 11/15/2024 03:18 PMPathologist: Axel Berger MDSpecimen: Esophagus, Biopsy, r/o esophageal candidiasis Performed By: #### 6 6121-5 ####[facility] LABORATORYCLIA [id number] [address] LABCLIA [id number] [address] [place] FINAL DIAGNOSIS Normal [facility] Comment on above: Order Comment: Speci men Type: TISSUE SPECIMENOrdering Facility: [facility] [place] Address: [address] [place] [address] Result Comment: Sierraop ellynus, biopsy:- Squamous mucosal candidiasis.JEL 11/16/2024 at 1034 EDT Performed By: #### 6 6121-5 ####[place] [facility]ORATORYCLIA [id number] [address] LABCLIA [id number] [address] [place] FINAL PERFORMING LAB Normal [facility] Comment on above: Order Comment: Speci men Type: TISSUE SPECIMENOrdering Facility: [facility] [place] Address: [address] [place] [address] Result Comment: Diag nostic interpretation performed at: [facility], [address] [facility] [address] CLIA# [id number] Director: Rick Harris MD Performed By: #### 6 6121-5 ####[facility]ORATORYCLIA [id number] [address] LABCLIA [id number] [place] [address] [place] GROSS DESCRIPTION Normal [facility] Comment on above: Order Comment: Speci men Type: TISSUE SPECIMENOrdering Facility: [facility] [place] Address: [address] [place] [address] Result Comment: Jann iglesias, BiopsyReceived in formalin are multiple pieces of day, soft tissue aggregating to 0.9 x 0.2 x 0.2 cm. Totally submitted in one cassette.BC November 15, 2024 4:50 PMGross examination performed at [facility], [address] [place] [address] Performed By: #### 6 6121-5 ####[facility]ORATORYCLIA [id number] [address] LABCLIA [id number] [place] [address] [place] Phosphate SerPl-mCncon 11-13 Phosphate [Mass/Vol] 1.5 mg/dL Low 2.7-4.8 [facility] Comment on above: Order Comment: Speci men Type: BLOOD SPECIMENOrdering Facility: [facility] [place] Address: [address] [place] [address] Performed By: #### 2 777-1, 3016-3 ####[facility] LABIA [id number] [place] [address] [place] RUBEOLA (MEASLES)IGGon 11-13 MEASLES IGG AB, QUAL Positive Normal Positive [facility] Comment on above: Order Comment: Speci men Type: BLOOD SPECIMENOrdering Facility: [facility] [place] Address: [address] [place] [address] Result Comment: The result suggests recent or past exposure to Measles virus or Measles vaccination. The current test does not detect neutralizing antibodies. Positive result may also be seen due to presence of passively-transferred antibodies. Please correlate with patient's history. Performed By: #### 7 852-7, MEASLG, VZVG2, 1988-10 ####[facility] LABCLIA [id number] [place] [address] [place] Reagin and Treponema pallidu m IgG and IgM [Interp]on 11-13-2024 T. pallidum IgG+IgM IA Ql (S) Non-Reactive Normal Nonreactive [facility] Comment on above: Order Comment: Speci men Type: BLOOD SPECIMENOrdering Facility: [facility] [place] Address: [address] [place] [address] Performed By: #### 7 3752-8, JEREMYVSHMUEL Manjarrez MUMPSG ####[facility] LABCLIA [id number] [place] [address] [place] Reagin+T pallidum IgG+IgM Se rPl-Impon 11-13-2024 Reagin and Treponema pallidum IgG and IgM [Interp] Cannot exclude recent Treponemal infection if specimen collected within 7-10 days after appearance of suspect lesions or 2-3 weeks after an exposure. Clinical correlation is required. Normal [facility] Comment on above: Order Comment: Speci men Type: BLOOD SPECIMENOrdering Facility: [facility] [place] Address: [address] [place] [address] Performed By: #### 7 3752-8, AHAVSHMUEL Manjarrez MUMPSG ####[facility] LABCLIA [id number] [place] [address] [place] STAPHYLOCOCCUS AUREUS AND MR SA SCREEN, PCR, NASALon 11-13-2024 S. aureus and MRSA panel ANANTH+probe (Nose) Not detected Normal Not Detected [facility] Comment on above: Order Comment: Speci men Type: SWABOrdering Facility: [facility] [place] Address: [address] [place] [address] Performed By: #### S APCR ####[facility] LABCLIA [id number] [address] [place] STRONGYLOIDES IGG BLon 11-13 STRONGYLOIDES IGG QUALITATIVE Negative Normal Negative [facility] Comment on above: Order Comment: Ezekiel ramirez Type: BLOOD SPECIMENOrdering Facility: [facility] [place] Address: [address] [place] [address] Performed By: #### S TRSER ####[facility] LABIA [id number] [address] [place] Performed By: #### 7 3752-8, AHAVG, STRSER, MUMPSG ####[facility] LABIA [id number] [address] [place] T. gondii IgG Qn (S)on 11-13 TOXO IGG QUAL Negative Normal Negative [facility] Comment on above: Order Comment: Ezekiel ramirez Type: BLOOD SPECIMENOrdering Facility: [facility] [place] Address: [address] [place] [address] Result Comment: No s erological evidence of past exposure to Toxoplasma gondii. Cannot exclude recent infection if the specimen collected within 3-4 weeks after infection. Performed By: #### 8 039-0, 7885-7 ####[facility] LABIA [id number] [place] [address] [place] THERAPY NTon 11-13-2024 THERAPY NT Normal [facility] TOXICOLOGY PANEL BLDon 11-13 Acetaminophen [Mass/Vol] ug/mL Low 10-30 [facility] Comment on above: Order Comment: Ezekiel ramirez Type: BLOOD SPECIMENOrdering Facility: [facility] [place] Address: [address] [place] [address] Result Comment: Toxi c > 150 ug/mL 4 hours post ingestionThe Viviana Figueroa nomogram can be used to estimate the probability of hepatotoxicity via the relationship of plasma acetaminophen concentration to the post ingestion interval. (Skylar. Pediatrics. 1975. 55:871 to 876 and Viviana et al. [address] Assistant Med. 1981. 141:380 to 385).Reference ranges and high/low indicator flags are provided as general guidelines only. The treating physician must determine appropriate target levels/dosing based on the specific clinical situation. Performed By: #### T OXP ####[facility] LABCLIA [id number] [place] [address] [place] Ethanol [Mass/Vol] mg/dL Normal <11 [facility] Comment on above: Order Comment: Spechelder ramirez Type: BLOOD SPECIMENOrdering Facility: [facility] [place] Address: [address] [place] [address] Performed By: #### T OXP ####[facility] LABIA [id number] [place] [address] [place] Salicylates [Mass/Vol] mg/dL Low 3.0-30.0 [facility] Comment on above: Order Comment: Ezekiel ramirez Type: BLOOD SPECIMENOrdering Facility: [facility] [place] Address: [address] [place] [address] Result Comment: The therapeutic range varies and has been reported to be 3.0 to 10.0 mg/dL for anti pyretic/analgesic conditions and 15.0 to 30.0 mg/dL for anti inflammatory/rheumatic fever conditions. Ranges published by the instrument underground truck operator.Reference ranges and high/low indicator flags are provided as general guidelines only. The treating physician must determine appropriate target levels/dosing based on the specific clinical situation. Performed By: #### T OXP ####[facility] LABIA [id number] [place] [address] [place] TSH SerPl-aCncon 11-13-2024 TSH Qn 0.633 m[IU]/L Normal 0.270-4.200 [facility] Comment on above: Order Comment: Ezekiel ramirez Type: BLOOD SPECIMENOrdering Facility: [facility] [place] Address: [address] [place] [address] Performed By: #### 2 777-1, 3016-3 ####[facility] LABCLIA [id number] [place] [address] [place] Upper GI endoscopyon 025 Upper GI endoscopy Normal [facility] VARICELLA ZOSTER IGGon 11-13 VARICELLA ZOSTER IGG, QUAL Positive Normal Positive [facility] Comment on above: Order Comment: Ezekiel ramirez Type: BLOOD SPECIMENOrdering Facility: [facility] [place] Address: [address] [place] [address] Result Comment: The result suggests recent or past exposure to Varicella-Zoster virus or chickenpox vaccination or zoster vaccination. Positive result may also be seen due to presence of passively-transferred antibodies. Please correlate with patient's history. Performed By: #### 7 852-7, MEASLG, VZVG2, 1988-10 ####[facility] LABCLIA [id number] [place] [address] [place] Vit A SerPl-mCncon Retinol [Mass/Vol] 0.03 mg/L Low 0.30-1.20 [facility] Comment on above: Order Comment: Ezekiel ramirez Type: BLOOD SPECIMENOrdering Facility: [facility] [place] Address: [address] [place] [address] Result Comment: This test was developed, and its performance characteristics determined by the [facility] Department of Pathology and Laboratory Medicine. It has not been cleared or approved by the FDA. The [facility] Department of Pathology and Laboratory Medicine is regulated under CLIA as qualified to perform high-complexity testing. This test is used for clinical purposes. It should not be regarded as investigational or for research. Performed By: #### 2 923-1, 1823-4 ####[facility] LABCLIA [id number] [place] [address] [place] Zinc SerPl-mCncon 11-13-2024 Zinc [Mass/Vol] 60 ug/dL Normal 60-120 [facility] Comment on above: Order Comment: Ezekiel ramirez Type: BLOOD SPECIMENOrdering Facility: [facility] [place] Address: [address] [place] [address] Result Comment: This test was developed, and its performance characteristics determined by the [facility] Department of Pathology and Laboratory Medicine. It has not been cleared or approved by the FDA. The [facility] Department of Pathology and Laboratory Medicine is regulated under CLIA as qualified to perform high-complexity testing. This test is used for clinical purposes. It should not be regarded as investigational or for research. Performed By: #### 5 763-8 ####[facility] LABIA [id number] [place] [id number] [place] AFP SerPl-mCncon 11-12-2024 AFP [Mass/Vol] 2.25 ng/mL Normal <9.00 [facility] Comment on above: Order Comment: Speci men Type: BLOOD SPECIMENOrdering Facility: [facility] [place] Address: [address] [place] [address] Result Comment: The Alpha-Fetoprotein test was performed using the Spotplex DxI immunoenzymatic assay. Results obtained with different assay methods or kits cannot be used interchangeably. Performed By: #### 1 834-1 ####[facility] LABIA [id number] [address] [place] [address] [place] ARTERIAL BLOOD GASESon 11-12 Base deficit (BldA) [Moles/Vol] -8 mmol/L Low -2-0 [facility] Comment on above: Order Comment: Speci men Type: ARTERIAL BLOOD SPECIMENOrdering Facility: [facility] [place] Address: [address] [place] [address] Performed By: #### A LLBG ####[facility] LABIA [id number] [address], [facility] [place] Body temperature 98.6 [degF] Normal [facility] Comment on above: Order Comment: Speci men Type: ARTERIAL BLOOD SPECIMENOrdering Facility: [facility] [place] Address: [address] [place] [address] Performed By: #### A LLBG ####[facility] LABIA [id number] [address] [address] [place] Calcium.ionized (Bld) [Mass/Vol] 1.20 mmol/L Normal 1.08-1.30 [facility] Comment on above: Order Comment: Speci men Type: ARTERIAL BLOOD SPECIMENOrdering Facility: [facility] [place] Address: [address] [place] [address] Performed By: #### A LLBG ####[facility] LABCLIA [id number] [place] [address] [place] Calcium.ionized adjusted to pH 7.4 (BldA) [Moles/Vol] 1.24 mmol/L Normal 1.08-1.30 [facility] Comment on above: Order Comment: Speci men Type: ARTERIAL BLOOD SPECIMENOrdering Facility: [facility] [place] Address: [address] [place] [address] Performed By: #### A LLBG ####[facility] LABCLIA [id number] [place] [address] [place] Carboxyhemoglobin (BldA) [Mass fraction] 2.0 % Normal 0.0-2.0 [facility] Comment on above: Order Comment: Speci men Type: ARTERIAL BLOOD SPECIMENOrdering Facility: [facility] [place] Address: [address] [place] [address] Result Comment: Carb oxyhemoglobin Reference Range for Smokers: 2.0-8.0% Performed By: #### A LLBG ####[facility] LABCLIA [id number] [place] [address] [place] CO2 (Bld) [Partial pressure] 21 mm Hg Low 36-46 [facility] Comment on above: Order Comment: Speci men Type: ARTERIAL BLOOD SPECIMENOrdering Facility: [facility] [place] Address: [address] [place] [address] Performed By: #### A LLBG ####[facility] LABCLIA [id number] [place] [address] [place] Glucose [Mass/Vol] 276 mg/dL High 60-105 [facility] Comment on above: Order Comment: Speci men Type: ARTERIAL BLOOD SPECIMENOrdering Facility: [facility] [place] Address: [address] [place] [address] Performed By: #### A LLBG ####[facility] LABCLIA [id number] [place] [address] [place] HCO3 (Bld) [Moles/Vol] 15 mmol/L Low 22-26 [facility] Comment on above: Order Comment: Speci men Type: ARTERIAL BLOOD SPECIMENOrdering Facility: [facility] [place] Address: [address] [place] [address] Performed By: #### A LLBG ####[facility] LABCLIA [id number] [place] [address] [place] Hematocrit (Bld) [Volume fraction] 22.4 % Low 39.0-51.0 [facility] Comment on above: Order Comment: Speci men Type: ARTERIAL BLOOD SPECIMENOrdering Facility: [facility] [place] Address: [address] [place] [address] Performed By: #### A LLBG ####[facility] LABCLIA [id number] [place] [address] [place] Hemoglobin (Bld) [Mass/Vol] 7.2 g/dL Low 13.0-17.0 [facility] Comment on above: Order Comment: Speci men Type: ARTERIAL BLOOD SPECIMENOrdering Facility: [facility] [place] Address: [address] [place] [address] Performed By: #### A LLBG ####[facility] LABCLIA [id number] [place] [address] [place] Lactate [Moles/Vol] 2.9 mmol/L High 0.5-2.2 [facility] Comment on above: Order Comment: Speci men Type: ARTERIAL BLOOD SPECIMENOrdering Facility: [facility] [place] Address: [address] [place] [address] Performed By: #### A LLBG ####[facility] LABCLIA [id number] [address] [address] [place] Methemoglobin (Bld) [Mass fraction] 1.0 % Normal 0.0-1.5 [facility] Comment on above: Order Comment: Speci men Type: ARTERIAL BLOOD SPECIMENOrdering Facility: [facility] [place] Address: [address] [place] [address] Performed By: #### A LLBG ####[facility] LABCLIA [id number] [address] [address] [place] O2 THERAPY RA=Room Air Normal [facility] Comment on above: Order Comment: Speci men Type: ARTERIAL BLOOD SPECIMENOrdering Facility: [facility] [place] Address: [address] [place] [address] Performed By: #### A LLBG ####[facility] LABCLIA [id number] [place] [id number] [place] Oxygen (Bld) [Partial pressure] 94 mm Hg Normal 85-95 [facility] Comment on above: Order Comment: Speci men Type: ARTERIAL BLOOD SPECIMENOrdering Facility: [facility] [place] Address: [address] [place] [address] Performed By: #### A LLBG ####[facility] LABCLIA [id number] [place] [id number] [place] Oxyhemoglobin (BldA) [Mass fraction] 96 % Normal 95-98 [facility] Comment on above: Order Comment: Speci men Type: ARTERIAL BLOOD SPECIMENOrdering Facility: [facility] [place] Address: [address] [place] [address] Performed By: #### A LLBG ####[facility] LABCLIA [id number] [address] [address] [place] pH (Bld) 7.46 [pH] High 7.35-7.45 [facility] Comment on above: Order Comment: Speci men Type: ARTERIAL BLOOD SPECIMENOrdering Facility: [facility] [place] Address: [address] [place] [address] Performed By: #### A LLBG ####[facility] LABCLIA [id number] [address] [address] [place] PO2 / FIO2 RATIO 448 mmHg Normal >300 [facility] Comment on above: Order Comment: Speci men Type: ARTERIAL BLOOD SPECIMENOrdering Facility: [facility] [place] Address: [address] [place] [address] Performed By: #### A LLBG ####[facility] LABCLIA [id number] [place] [address] [place] Potassium [Moles/Vol] 3.9 mmol/L Normal 3.5-5.0 [facility] Comment on above: Order Comment: Speci men Type: ARTERIAL BLOOD SPECIMENOrdering Facility: [facility] [place] Address: [address] [place] [address] Performed By: #### A LLBG ####[facility] LABCLIA [id number] [place] [address] [place] Sodium [Moles/Vol] 124 mmol/L Low 136-144 [facility] Comment on above: Order Comment: Speci men Type: ARTERIAL BLOOD SPECIMENOrdering Facility: [facility] [place] Address: [address] [place] [address] Performed By: #### A LLBG ####[facility] LABCLIA [id number] [facility] [address] [place] [address] [place] Bacteria Ur Culton Bacteria identified Cx Nom (U) Normal [facility] Comment on above: Performed By: #### 6 30-4, 22243-6 ####[facility] LABCLIA [id number] [address] [address] [place] Basic metabolic 2000 panelon 11-12-2024 Anion gap [Moles/Vol] 11 mmol/L Normal 8-15 [facility] Comment on above: Order Comment: Speci men Type: BLOOD SPECIMENOrdering Facility: [facility] [place] Address: [address] [place], [place] [address] Performed By: #### 2 4321-2, 49329-0, 2776-08 ####[facility] LABCLIA [id number] [facility]UEINTER[facility]COMM[facility]ITY MEDICAL CENTERK [address] [address] [place] Calcium [Mass/Vol] 9.2 mg/dL Normal 8.5-10.2 [facility] Comment on above: Order Comment: Speci men Type: BLOOD SPECIMENOrdering Facility: [facility] [place] Address: [address] [place] [address] Performed By: #### 2 4321-2, 23678-2, 2776-08 ####[facility] LABCLIA [id number] [facility] [place] [id number] [place] Chloride [Moles/Vol] 99 mmol/L Normal 98-107 [facility] Comment on above: Order Comment: Speci men Type: BLOOD SPECIMENOrdering Facility: [facility] [place] Address: [address] [place], [place] [address] Performed By: #### 2 4321-2, 79382-9, 2776-08 ####[facility] LABCLIA [id number] [facility] [place] [id number] [place] CO2 [Moles/Vol] 14 mmol/L Low 22-30 [facility] Comment on above: Order Comment: Speci men Type: BLOOD SPECIMENOrdering Facility: [facility] [place] Address: [address] [place] [address] Performed By: #### 2 4321-2, 96168-6, 2776-08 ####[facility] LABCLIA [id number] [facility]UEINTER[facility]COMM[facility]ITY MEDICAL CENTERK [address] [address] [place] Creatinine [Mass/Vol] 1.22 mg/dL Normal 0.73-1.22 [facility] Comment on above: Order Comment: Speci men Type: BLOOD SPECIMENOrdering Facility: [facility] [place] Address: [address] [place] [address] Performed By: #### 2 4321-2, 68647-2, 2777-1 ####[facility] LABIA [id number] [place] [address] [place] Creatinine and Glomerular filtration rate.predicted panel (S/P/Bld) 69 mL/min/1.73m??? Normal >=60 [facility] Comment on above: Order Comment: Ezekiel ramirez Type: BLOOD SPECIMENOrdering Facility: [facility] [place] Address: [address] [place] [address] Result Comment: Patric mated Glomerular Filtration Rate [...] actual GFR. Performed By: #### 2 4321-2, 06460-9, 2777-1 ####[facility] LABIA [id number] [place] [id number] [place] Glucose [Mass/Vol] 304 mg/dL High 74-99 [facility] Comment on above: Order Comment: Ezekiel ramirez Type: BLOOD SPECIMENOrdering Facility: [facility] [place] Address: [address] [place] [address] Result Comment: The [place] Diabetes Association (ADA) provides guidance for cutoff [...] Standards of Medical Care in Diabetes 2016, [place] [employer] Association. Diabetes Care. 2016.39(Suppl 1). Performed By: #### 2 4321-2, 19455-3, 2777- ####[facility] LABCLIA [id number] [address] [address] [place] Potassium [Moles/Vol] 4.3 mmol/L Normal 3.7-5.1 [facility] Comment on above: Order Comment: Speci men Type: BLOOD SPECIMENOrdering Facility: [facility] [place] Address: [address] [place], [place] [address] Performed By: #### 2 4321-2, 17133-9, 27702-01 ####[facility] LABCLIA [id number] [place] [id number] [place] Sodium [Moles/Vol] 124 mmol/L Low 136-144 [facility] Comment on above: Order Comment: Speci men Type: BLOOD SPECIMENOrdering Facility: [facility] [place] Address: [address] [place], [place] [address] Performed By: #### 2 4321-2, 58043-4, 2776-08 ####[facility] LABIA [id number] [address] [address] [place] Urea nitrogen [Mass/Vol] 22 mg/dL Normal 9-24 [facility] Comment on above: Order Comment: Speci men Type: BLOOD SPECIMENOrdering Facility: [facility] [place] Address: [address] [place], [place] [address] Performed By: #### 2 4321-2, 31224-0, 277- ####[facility] LABIA [id number] [address] [address] [place] CASE MGT INIT ASSESon 2024 CASE MGT INIT ASSES Normal [facility] CBC panel Auto (Bld)on 11-12 Erythrocyte distribution width (RBC) [Ratio] 16.9 % High 11.5-15.0 [facility] Comment on above: Order Comment: Speci men Type: BLOOD SPECIMENOrdering Facility: [facility] [place] Address: [address] [place] [address] Performed By: #### 5 8410-2 ####[facility] LABIA [id number] [place] [address] [place] Hematocrit (Bld) [Volume fraction] 21.7 % Low 39.0-51.0 [facility] Comment on above: Order Comment: Speci men Type: BLOOD SPECIMENOrdering Facility: [facility] [place] Address: [address] [place] [address] Performed By: #### 5 8410-2 ####[facility] LABIA [id number] [place] [address] [place] Hemoglobin (Bld) [Mass/Vol] 7.5 g/dL Low 13.0-17.0 [facility] Comment on above: Order Comment: Speci men Type: BLOOD SPECIMENOrdering Facility: [facility] [place] Address: [address] [place] [address] Performed By: #### 5 8410-2 ####[facility] [id number] [place] [address] [place] MCH (RBC) [Entitic mass] 31.5 pg Normal 26.0-34.0 [facility] Comment on above: Order Comment: Speci men Type: BLOOD SPECIMENOrdering Facility: [facility] [place] Address: [address] [place] [address] Performed By: #### 5 8410-2 ####[facility] LABIA [id number] [place] [address] [place] MCHC (RBC) [Mass/Vol] 34.6 g/dL Normal 30.5-36.0 [facility] Comment on above: Order Comment: Speci men Type: BLOOD SPECIMENOrdering Facility: [facility] [place] Address: [address] [place] [address] Performed By: #### 5 8410-2 ####[facility] LABCLIA [id number] [place] [address] [place] MCV (RBC) [Entitic vol] 91.2 fL Normal 80.0-100.0 C [facility] Comment on above: Order Comment: Speci men Type: BLOOD SPECIMENOrdering Facility: [facility] [place] Address: [address] [place] [address] Performed By: #### 5 8410-2 ####[facility] LABIA [id number] [place] [address] [place] Nucleated RBC (Bld) [#/Vol] 10*3/uL Normal <0.01 [facility] Comment on above: Order Comment: Speci men Type: BLOOD SPECIMENOrdering Facility: [facility] [place] Address: [address] [place] [address] Performed By: #### 5 8410-2 ####[facility] LABIA [id number] [place] [address] [place] Platelet mean volume (Bld) [Entitic vol] 10.8 fL Normal 9.0-12.7 [facility] Comment on above: Order Comment: Speci men Type: BLOOD SPECIMENOrdering Facility: [facility] [place] Address: [address] [place] [address] Performed By: #### 5 8410-2 ####[facility] LABCLIA [id number] [place] [address] [place] Platelets (Bld) [#/Vol] 31 10*3/uL Low 150-400 C [facility] Comment on above: Order Comment: Speci men Type: BLOOD SPECIMENOrdering Facility: [facility] [place] Address: [address] [place] [address] Result Comment: Resu lts checked and verified.No clot detected. Performed By: #### 5 8410-2 ####[facility] LABCLIA [id number] [place] [address] [place] RBC (Bld) [#/Vol] 2.38 10*6/uL Low 4.20-6.00 [facility] Comment on above: Order Comment: Speci men Type: BLOOD SPECIMENOrdering Facility: [facility] [place] Address: [address] [place] [address] Performed By: #### 5 8410-2 ####[facility] LABCLIA [id number] [place] [address] [place] WBC (Bld) [#/Vol] 6.35 10*3/uL Normal 3.70-11.00 [facility] Comment on above: Order Comment: Speci men Type: BLOOD SPECIMENOrdering Facility: [facility] [place] Address: [address] [place] [address] Performed By: #### 5 8410-2 ####[facility] LABIA [id number] [place] [address] [place] Erythrocyte distribution width (RBC) [Ratio] 17.3 % High 11.5-15.0 [facility] Comment on above: Order Comment: Speci men Type: BLOOD SPECIMENOrdering Facility: [facility] [place] Address: [address] [place] [address] Performed By: #### 5 8410-2 ####[facility] LABIA [id number] [place] [address] [place] Hematocrit (Bld) [Volume fraction] 22.9 % Low 39.0-51.0 [facility] Comment on above: Order Comment: Speci men Type: BLOOD SPECIMENOrdering Facility: [facility] [facility] [place] Address: [address] [place] [address] Performed By: #### 5 8410-2 ####[facility] LABIA [id number] [place] [address] [place] Hemoglobin (Bld) [Mass/Vol] 7.9 g/dL Low 13.0-17.0 [facility] Comment on above: Order Comment: Speci men Type: BLOOD SPECIMENOrdering Facility: [facility] [place] Address: [address] [place] [address] Performed By: #### 5 8410-2 ####[facility] LABIA [id number] [place] [address] [place] MCH (RBC) [Entitic mass] 31.5 pg Normal 26.0-34.0 [facility] Comment on above: Order Comment: Speci men Type: BLOOD SPECIMENOrdering Facility: [facility] [place] Address: [address] [place] [address] Performed By: #### 5 8410-2 ####[facility] LABIA [id number] [place] [address] [place] MCHC (RBC) [Mass/Vol] 34.5 g/dL Normal 30.5-36.0 [facility] Comment on above: Order Comment: Speci men Type: BLOOD SPECIMENOrdering Facility: [facility] [place] Address: [address] [place] [address] Performed By: #### 5 8410-2 ####[facility] LABIA [id number] [place] [address] [place] MCV (RBC) [Entitic vol] 91.2 fL Normal 80.0-100.0 C [facility] Comment on above: Order Comment: Speci men Type: BLOOD SPECIMENOrdering Facility: [facility] [place] Address: [address] [place] [address] Performed By: #### 5 8410-2 ####[facility] LABIA [id number] [address] [place] Nucleated RBC (Bld) [#/Vol] 10*3/uL Normal <0.01 [facility] Comment on above: Order Comment: Speci men Type: BLOOD SPECIMENOrdering Facility: [facility] [place] Address: [address] [place] [address] Performed By: #### 5 8410-2 ####[facility] LABIA [id number] [place] [address] [place] Platelet mean volume (Bld) [Entitic vol] 11.6 fL Normal 9.0-12.7 [facility] Comment on above: Order Comment: Speci men Type: BLOOD SPECIMENOrdering Facility: [facility] [place] Address: [address] [place] [address] Performed By: #### 5 8410-2 ####[facility] [id number] [place] [address] [place] Platelets (Bld) [#/Vol] 33 10*3/uL Low 150-400 C [facility] Comment on above: Order Comment: Speci men Type: BLOOD SPECIMENOrdering Facility: [facility] [place] Address: [address] [place] [address] Result Comment: Resu lts checked and verified.No clot detected. Performed By: #### 5 8410-2 ####[facility] LABIA [id number] [place] [address] [place] RBC (Bld) [#/Vol] 2.51 10*6/uL Low 4.20-6.00 [facility] Comment on above: Order Comment: Speci men Type: BLOOD SPECIMENOrdering Facility: [facility] [place] Address: [address] [place] [address] Performed By: #### 5 8410-2 ####[facility] LABIA [id number] [place] [address] [place] WBC (Bld) [#/Vol] 7.27 10*3/uL Normal 3.70-11.00 [facility] Comment on above: Order Comment: Speci men Type: BLOOD SPECIMENOrdering Facility: [facility] [place] Address: [address] [place] [address] Performed By: #### 5 8410-2 ####[facility] LABCLIA [id number] [place] [address] [place] CITRATED PLATELET COUNTon CITRATED PLATELET COUNT (WAM) 33 k/uL Low 150-400 [facility] Comment on above: Order Comment: Speci men Type: BLOOD SPECIMENOrdering Facility: [facility] [place] Address: [address] [place] [address] Result Comment: Plat elet count confirmed by manual review of peripheral blood smear. No clot detected. Performed By: #### C ITPLT ####[facility] LABCLIA [id number] [place] [address] [place] CNCNPATEDon 11-12-2024 CNCNPATED Normal [facility] CNPNon 11-12-2024 CNPN Normal [facility] CONFIRM BLOOD TYPEon 025 ABO O Normal [facility] Comment on above: Order Comment: Speci men Type: BLOOD SPECIMENOrdering Facility: [facility] [place] Address: [address] [place] [address] Performed By: #### C ONABO ####[facility] BLOOD BANKIA [id number] [place] [address] [place] Rh Nom (Bld) Positive Normal [facility] Comment on above: Order Comment: Speci men Type: BLOOD SPECIMENOrdering Facility: [facility] [place] Address: [address] [place] [address] Performed By: #### C ONABO ####[facility] BLOOD BANKCLIA [id number] [place] [address] [place] CONSULTon 11-12-2024 CONSULT Normal [facility] CONSULT Normal [facility] CONSULT Normal [facility] CONSULT Normal [facility] CONSULT Normal [facility] CONSULT Normal [facility] CT CHEST WO IVCONon 11-13-[address] CHEST WO IVCON Normal [facility] D dimer FEU PPP-mCncon 11-12 Fibrin D-dimer FEU (PPP) [Mass/Vol] 3850 ng/mL FEU High <500 [facility] Comment on above: Order Comment: Speci men Type: BLOOD SPECIMENOrdering Facility: [facility] [place] Address: [address] [place] [address] Performed By: #### 4 8065-7 ####[facility] LABIA [id number] [place] [address] [place] ECHO WITH AGITATED SALINE CO NTRASTon 11-12-2024 ECHO WITH AGITATED SALINE CONTRAST Normal [facility] Fibrin D-dimer FEU (PPP) [Ma ss/Vol]on 11-12-2024 D DIMER AGE-RELATED CUTOFF 580 ng/mL FEU Normal [facility] Comment on above: Order Comment: Speci men Type: BLOOD SPECIMENOrdering Facility: [facility] [place] Address: [address] [place] [address] Performed By: #### 4 8065-7 ####[facility] LABIA [id number] [place] [address] [place] Hepatic function 2000 panelo n 11-12-2024 Albumin [Mass/Vol] 3.0 g/dL Low 3.9-4.9 [facility] Comment on above: Order Comment: Speci men Type: BLOOD SPECIMENOrdering Facility: [facility] [place] Address: [address] [place] [address] Performed By: #### 2 4321-2, 20845-3, 2777-1 ####[facility] LABIA [id number] [place] [address] [place] ALP [Catalytic activity/Vol] 252 U/L High 38-113 [facility] Comment on above: Order Comment: Speci men Type: BLOOD SPECIMENOrdering Facility: [facility] [place] Address: [address] [place] [address] Performed By: #### 2 4321-2, 48410-5, 2777-1 ####[facility] LABCLIA [id number] [address] [address] [place] ALT [Catalytic activity/Vol] 24 U/L Normal 10-54 [facility] Comment on above: Order Comment: Speci men Type: BLOOD SPECIMENOrdering Facility: [facility] [place] Address: [address] [place] [address] Performed By: #### 2 4321-2, 71504-4, 277-1 ####[facility] LABIA [id number] [place] [address] [place] AST [Catalytic activity/Vol] 41 U/L High 14-40 [facility] Comment on above: Order Comment: Speci men Type: BLOOD SPECIMENOrdering Facility: [facility] [place] Address: [address] [place] [address] Performed By: #### 2 4321-2, 10688-1, 277-1 ####[facility] LABIA [id number] [place] [address] [place] Bilirubin [Mass/Vol] 1.8 mg/dL High 0.2-1.3 [facility] Comment on above: Order Comment: Speci men Type: BLOOD SPECIMENOrdering Facility: [facility] [place] Address: [address] [place] [address] Performed By: #### 2 4321-2, 99179-4, 277-1 ####[facility] LABIA [id number] [place] [address] [place] Bilirubin.conjugated [Mass/Vol] 0.9 mg/dL High <0.3 [facility] Comment on above: Order Comment: Speci men Type: BLOOD SPECIMENOrdering Facility: [facility] [place] Address: [address] [place] [address] Result Comment: Resu lts may be falsely decreased due to interference from hemolysis. Suggest reorder as clinically indicated. Performed By: #### 2 4321-2, 10068-4, 2777-1 ####[facility] LABCLIA [id number] [address] [address] [place] Protein [Mass/Vol] 5.5 g/dL Low 6.3-8.0 [facility] Comment on above: Order Comment: Speci men Type: BLOOD SPECIMENOrdering Facility: [facility] [place] Address: [address] [place] [address] Performed By: #### 2 4321-2, 90826-7, 2776-08 ####[facility] LABCLIA [id number] [address] [address] [place] MEDICAL EMERon 11-12-2024 MEDICAL KRISTINA Normal [facility] NURSING PROGon 11-12-2024 NURSING PROG Normal [facility] NURSING PROG Normal [facility] NURSING PROG Normal [facility] NURSING PROG Normal [facility] NUTRITIONon 11-12-2024 NUTRITION Normal [facility] PTT, ANTICOAGULANT THERAPYon 11-12-2024 aPTT Coag (PPP) [Time] 62.6 s High 23.0-32.4 [facility] Comment on above: Order Comment: Speci men Type: BLOOD SPECIMENOrdering Facility: [facility] [place] Address: [address] [place] [address] Performed By: #### P TTAC ####[facility] LABIA [id number] [place] [address] [place] Phosphate SerPl-mCncon 11-12 Phosphate [Mass/Vol] 2.3 mg/dL Low 2.7-4.8 [facility] Comment on above: Order Comment: Speci men Type: BLOOD SPECIMENOrdering Facility: [facility] [place] Address: [address] [place] [address] Performed By: #### 2 4321-2, 14989-5, 2776-08 ####[facility] LABCLIA [id number] [address] [address] [place] SOCIAL WORKon 11-12-2024 SOCIAL WORK Normal [facility] THERAPY NTon 11-12-2024 THERAPY NT Normal [facility] THERAPY NT Normal [facility] THROMBOGRAPH PANELon 025 Clot angle TEG (Bld) [Angle] 32.8 degrees Low 47.0-74.0 [facility] Comment on above: Order Comment: Speci men Type: BLOOD SPECIMENOrdering Facility: [facility] [place] Address: [address] [place] [address] Performed By: #### T EGPNP ####[facility] [id number] [place] [address] [place] Clot Lysis 30 Min post maximum clot amplitude TEG (Bld) [Length fraction] 0.0 % Normal 0.0-8.0 [facility] Comment on above: Order Comment: Speci men Type: BLOOD SPECIMENOrdering Facility: [facility] [place] Address: [address] [place] [address] Performed By: #### T EGPNP ####[facility] [id number] [place] [address] [place] Clotting time TEG (Bld) 5.0 minutes Normal 4.0-10.0 [facility] Comment on above: Order Comment: Speci men Type: BLOOD SPECIMENOrdering Facility: [facility] [place] Address: [address] [place] [address] Performed By: #### T EGPNP ####[facility] [id number] [place] [id number] [place] Coagulation index TEG Qn (Bld) -8.4 Low -4.6-3.2 [facility] Comment on above: Order Comment: Speci men Type: BLOOD SPECIMENOrdering Facility: [facility] [place] Address: [address] [place] [address] Result Comment: This test was developed, and its performance characteristics determined by the [facility] Department of Pathology and Laboratory Medicine. It has not been cleared or approved by the FDA. The [facility] Department of Pathology and Laboratory Medicine is regulated under CLIA as qualified to perform high-complexity testing. This test is used for clinical purposes. It should not be regarded as investigational or for research. Performed By: #### T EGCARLOSP ####[facility] LABCLIA [id number] [address] [place] [facility] Maximum clot firmness TEG (Bld) [Length] 28.5 mm Low 51.0-75.0 [facility] Comment on above: Order Comment: Ezekiel ramirez Type: BLOOD SPECIMENOrdering Facility: [facility] [place] Address: [address] [place] [address] Performed By: #### T EGPNP ####[facility] LABIA [id number] [address] Thromboelastography after addtion of heparinase panel (Bld) Normal [facility] Comment on above: Order Comment: Ezekiel ramirez Type: BLOOD SPECIMENOrdering Facility: [facility] [place] Address: [address] [place] [address] Result Comment: A th romboelastograph (TEG) study [...] timely manner. Performed By: #### T EGPNP ####[facility] LABCLIA [id number] [place] [address] [place] TOXICOLOGY SCREEN, ROUTINE U RINEon 11-12-2024 Amphetamines Confirm (U) [Mass/Vol] Negative Normal Negative [facility] Comment on above: Order Comment: Speci men Type: URINE SPECIMENOrdering Facility: [facility] [place] Address: [address] [place] [address] Result Comment: Cuto ff threshold at 1000 ng/mL. Performed By: #### U TOX2 ####[facility] LABIA [id number] [place] [address] [place] BARBITURATES, URINE Negative Normal Negative [facility] Comment on above: Order Comment: Speci men Type: URINE SPECIMENOrdering Facility: [facility] [place] Address: [address] [place] [address] Result Comment: Cuto ff threshold at 200 ng/mL. Performed By: #### U TOX2 ####[facility] LABIA [id number] [place] [address] [place] BENZODIAZEPINES, UR Negative Normal Negative [facility] Comment on above: Order Comment: Speci men Type: URINE SPECIMENOrdering Facility: [facility] [place] Address: [address] [place] [address] Result Comment: Cuto ff threshold at 200 ng/mL. Performed By: #### U TOX2 ####[facility] LABIA [id number] [place] [address] [place] Cannabinoids Screen Ql (U) Negative Normal Negative [facility] Comment on above: Order Comment: Speci men Type: URINE SPECIMENOrdering Facility: [facility] [place] Address: [address] [place] [address] Result Comment: Cuto ff threshold at 50 ng/mL. Performed By: #### U TOX2 ####[facility] LABIA [id number] [place] [address] [place] Cocaine Ql (U) Negative Normal Negative [facility] Comment on above: Order Comment: Speci men Type: URINE SPECIMENOrdering Facility: [facility] [place] Address: [address] [place] [address] Result Comment: Cuto ff threshold at 300 ng/mL. Performed By: #### U TOX2 ####[facility] LABCLIA [id number] [address] [address] [place] Ethanol (U) [Mass/Vol] <11 Normal <11 Cl [facility] Comment on above: Order Comment: Speci men Type: URINE SPECIMENOrdering Facility: [facility] [place] Address: [address] [place] [address] Performed By: #### U TOX2 ####[facility] LABCLIA [id number] [place] [address] [place] Opiates Screen Ql (U) Negative Normal Negative [facility] Comment on above: Order Comment: Speci men Type: URINE SPECIMENOrdering Facility: [facility] [place] Address: [address] [place] [address] Result Comment: Cuto ff threshold at 300 ng/mL. Performed By: #### U TOX2 ####[facility] LABCLIA [id number] [place] [address] [place] oxyCODONE cutoff Screen (U) [Mass/Vol] Positive Abnormal Negative [facility] Comment on above: Order Comment: Speci men Type: URINE SPECIMENOrdering Facility: [facility] [place] Address: [address] [place], [place] [address] Result Comment: Cuto ff threshold at 100 ng/mL. Performed By: #### U TOX2 ####[facility] LABIA [id number] [place] [id number] [place] Phencyclidine Ql (U) Negative Normal Negative [facility] Comment on above: Order Comment: Speci men Type: URINE SPECIMENOrdering Facility: [facility] [place] Address: [address] [place] [address] Result Comment: Cuto ff threshold at 25 ng/mL. Performed By: #### U TOX2 ####[facility] LABCLIA [id number] [place] [address] [place] TYPE + SCREENon 11-12-2024 ABO O Normal [facility] Comment on above: Order Comment: Speci men Type: BLOOD SPECIMENOrdering Facility: [facility] [place] Address: [address] [place] [address] Performed By: #### T SCR ####[facility] BLOOD BANKCLIA [id number] [place] [address] [place] Rh Nom (Bld) Positive Normal [facility] Comment on above: Order Comment: Speci men Type: BLOOD SPECIMENOrdering Facility: [facility] [place] Address: [address] [place] [address] Performed By: #### T SCR ####[facility] BLOOD BANKCLIA [id number] [place] [address] [place] TYPE AND SCREEN EXPIRATION 11/15/2024 23:59 Normal [facility] Comment on above: Order Comment: Speci men Type: BLOOD SPECIMENOrdering Facility: [facility] [place] Address: [address] [place] [address] Performed By: #### T SCR ####[facility] BLOOD BANKCLIA [id number] [place] [address] [place] Urinalysis complete panel (U )on 11-12-2024 BACTERIA UL 1553.2 uL High Negative [facility] Comment on above: Order Comment: Speci men Type: URINE SPECIMENOrdering Facility: [facility] [place] Address: [address] [place] [address] Performed By: #### 6 30-4, 81119-0 ####[facility] LABCLIA [id number] [place] [id number] [place] Bilirubin Ql (U) 1+ Abnormal Negative [facility] Comment on above: Order Comment: Speci men Type: URINE SPECIMENOrdering Facility: [facility] [place] Address: [address] [place] [address] Result Comment: Sugg est correlation with clinical findings and serum bilirubin if clinically indicated. Performed By: #### 6 30-4, 09092-7 ####[facility] LABCLIA [id number] [address] [place] [address] [place] Clarity (Unsp spec) Cloudy Abnormal Clear [facility] Comment on above: Order Comment: Speci men Type: URINE SPECIMENOrdering Facility: [facility] [place] Address: [address] [place] [address] Performed By: #### 6 30-4, 61163-0 ####[facility] LABCLIA [id number] [address], [facility]95 [place] Color (U) [place] Abnormal Yellow [facility] Comment on above: Order Comment: Speci men Type: URINE SPECIMENOrdering Facility: [facility] [place] Address: [address] [place] [address] Performed By: #### 6 30-4, 08828-7 ####[facility] LABCLIA [id number] [address], [facility]95 [place] Epithelial cells LM.HPF (Urine sed) [#/Area] None Seen Normal [facility] Comment on above: Order Comment: Speci men Type: URINE SPECIMENOrdering Facility: [facility] [place] Address: [address] [place] [address] Performed By: #### 6 30-4, 72649-3 ####[facility] LABCLIA [id number] [place] [id number] [place] Glucose Test strip (U) [Mass/Vol] Negative Normal Negative [facility] Comment on above: Order Comment: Speci men Type: URINE SPECIMENOrdering Facility: [facility] [place] Address: [address] [place] [address] Performed By: #### 6 30-4, 77723-4 ####[facility] LABCLIA [id number] [facility] [address] [id number] [address] [place] Hemoglobin Ql (U) 3+ Abnormal Negative [facility] Comment on above: Order Comment: Speci men Type: URINE SPECIMENOrdering Facility: [facility] [place] Address: [address] [place], [place] [address] Performed By: #### 6 30-4, 64380-1 ####[facility] LABCLIA [id number] [address] [place] [address] [place] Hyaline casts (Urine sed) [#/Area] 0 /[LPF] Normal 0 /LPF [facility] Comment on above: Order Comment: Speci men Type: URINE SPECIMENOrdering Facility: [facility] [place] Address: [address] [place] [address] Performed By: #### 6 30-4, 74928-9 ####[facility] LABCLIA [id number] [address] [place] [address] [place] Ketones Ql (U) Negative Normal Negative [facility] Comment on above: Order Comment: Speci men Type: URINE SPECIMENOrdering Facility: [facility] [place] Address: [address] [place], [place] [address] Performed By: #### 6 30-4, 38737-8 ####[facility] LABCLIA [id number] [address] [place] [address] [place] Leukocyte esterase Test strip Ql (U) 2+ Abnormal Negative [facility] Comment on above: Order Comment: Speci men Type: URINE SPECIMENOrdering Facility: [facility] [place] Address: [address] [place], [place] [address] Performed By: #### 6 30-4, 90206-3 ####[facility] LABCLIA [id number] [address] [place] [address] [place] Nitrite Ql (U) Negative Normal Negative [facility] Comment on above: Order Comment: Speci men Type: URINE SPECIMENOrdering Facility: [facility] [place] Address: [address] [place] [address] Performed By: #### 6 30-4, 43819-8 ####[facility] LABIA [id number] [address] [address] [place] pH (U) 6.0 [pH] Normal <8.5 [facility] Comment on above: Order Comment: Speci men Type: URINE SPECIMENOrdering Facility: [facility] [place] Address: [address] [place] [address] Performed By: #### 6 30-4, 17157-8 ####[facility] LABIA [id number] [place] [address] [place] Protein (U) [Mass/Vol] 3+ Abnormal Negative Cl [facility] Comment on above: Order Comment: Speci men Type: URINE SPECIMENOrdering Facility: [facility] [place] Address: [address] [place] [address] Performed By: #### 6 30-4, 20490-6 ####[facility] LABIA [id number] [place] [address] [place] RBC LM.HPF (Urine sed) [#/Area] /[HPF] Abnormal 0-2 /HPF [facility] Comment on above: Order Comment: Speci men Type: URINE SPECIMENOrdering Facility: [facility] [place] Address: [address] [place] [address] Performed By: #### 6 30-4, 32741-9 ####[facility] LABIA [id number] [place] [id number] [place] Specific gravity (U) [Rel density] 1.019 Normal 1.005-1.030 [facility] Comment on above: Order Comment: Speci men Type: URINE SPECIMENOrdering Facility: [facility] [place] Address: [address] [place] [address] Performed By: #### 6 30-4, 97975-5 ####[facility] [id number] [place] [address] [place] Urobilinogen Ql (U) 0.2 EU/dL Normal 0.2-1.0 EU/dL [facility] Comment on above: Order Comment: Speci men Type: URINE SPECIMENOrdering Facility: [facility] [place] Address: [address] [place] [address] Performed By: #### 6 30-4, 08955-6 ####[facility] [id number] [place] [address] [place] WBC LM.HPF (Urine sed) [#/Area] /[HPF] Abnormal 0-5 /HPF [facility] Comment on above: Order Comment: Speci men Type: URINE SPECIMENOrdering Facility: [facility] [place] Address: [address] [place] [address] Performed By: #### 6 30-4, 29033-8 ####[facility] [id number] [place] [address] [place] ALLIED HEALTHon 11-11-2024 ALLIED HEALTH Normal [facility] ALLIED HEALTH Normal [facility] ANTI PLT FACTOR 4 ABon 11-11 Heparin induced platelet IgG Marco Antonio (S) [Interp] Negative Normal Negative [facility] Comment on above: Order Comment: Speci men Type: BLOOD SPECIMENOrdering Facility: [facility] [place] Address: [address] [place] [address] Result Comment: No a nti-platelet factor 4 IgG antibody is detected by ANDERS assay.Heparin-induced thrombocytopenia (HIT) is unlikely, but should be excluded based on clinical factors. Performed By: #### P LATF4 ####[facility] [id number] [place] [address] [place] Platelet factor 4 Qn (PPP) 0.184 OD Normal <0.400 [facility] Comment on above: Order Comment: Speci men Type: BLOOD SPECIMENOrdering Facility: [facility] [place] Address: [address] [place] [address] Result Comment: Not calculated Performed By: #### P LATF4 ####[facility] LABIA [id number] [place] [address] [place] Albumin Fld-mCncon 5 Albumin (Body fld) [Mass/Vol] <0.2 Normal See Comment [facility] Comment on above: Order Comment: Speci men Type: FLUID SPECIMENOrdering Facility: [facility] [place] Address: [address] [place] [address] Result Comment: Body Fluid Albumin may be [...] document C49A. PAULETTE Diaz: Clinical Laboratory Standards [place]: 2007.2. Amy JACKSON. Serum to ascites albumin gradient. UpToDate. 2015. Accessed on November 15, 2015.This test was developed, and its performance characteristics determined by the [facility] Department of Pathology and Laboratory Medicine. It has not been cleared or approved by the FDA. The [facility] Department of Pathology and Laboratory Medicine is regulated under CLIA as qualified to perform high-complexity testing. This test is used for clinical purposes. It should not be regarded as investigational or for research. Performed By: #### 1 747-5, 1795-4, 43692-9, 2881-1 ####[facility] LABCLIA [id number] [place] [address] [place] Fluid Nom (Body fld) Abdomen Normal [facility] Comment on above: Order Comment: Speci men Type: FLUID SPECIMENOrdering Facility: [facility] [place] Address: [address] [place] [address] Performed By: #### 1 747-5, 1795-4, 88259-1, 2881-1 ####[facility] LABCLIA [id number] [place] [address] [place] Amylase Fld-cCncon 5 Amylase (Body fld) [Catalytic activity/Vol] 14 U/L Normal See Comment [facility] Comment on above: Order Comment: Speci men Type: FLUID SPECIMENOrdering Facility: [facility] [place] Address: [address] [place] [address] Result Comment: PLEU RAL FLUIDS:Amylase measurement in [...] document C49-A. Joe PA: Clinical Laboratory Standards [place]; 2007.3. Kelby CONCEPCION, John BRAR, Star DJ. Use of cyst fluid CEA, CA19-9, and amylase for evaluation of pancreatic lesions. Clinical Biochemistry. 2009;42:2251-9501.This test was developed, and its performance characteristics determined by the [facility] Department of Pathology and Laboratory Medicine. It has not been cleared or approved by the FDA. The [facility] Department of Pathology and Laboratory Medicine is regulated under CLIA as qualified to perform high-complexity testing. This test is used for clinical purposes. It should not be regarded as investigational or for research. Performed By: #### 1 747-5, 1795-4, 76239-8, 2881-1 ####[facility] LABCLIA [id number] [place] [id number] [facility] [place] Antithrombin Ag actual/philly l IA (PPP) [Relative mass conc]on 11-11-2024 Antithrombin Ag IA Qn (PPP) 32 % Low 80-120 [facility] Comment on above: Order Comment: Speci men Type: BLOOD SPECIMENOrdering Facility: [facility] [place] Address: [address] [place] [address] Performed By: #### L [id number], HCOAG, 6303-2, 77234-3, 25320-0 ####[facility] LABIA [id number] [address] BODY FLUID CELL COUNTon 11-02 Clarity (Unsp spec) Clear Normal Clear [facility] Comment on above: Order Comment: Speci men Type: FLUID SPECIMENOrdering Facility: [facility] [place] Address: [address] [place] [address] Performed By: #### C CBF, [id number] ####[facility] LABCLIA [id number] [address] [place] Color (Body fld) Colorless Normal Yellow [facility] Comment on above: Order Comment: Speci men Type: FLUID SPECIMENOrdering Facility: [facility] [place] Address: [address] [place] [address] Performed By: #### C CBF, [id number] ####[facility] LABCLIA [id number] [address] [address] [place] RBC Manual cnt (Body fld) [#/Vol] 2000 /uL High <2000 [facility] Comment on above: Order Comment: Speci men Type: FLUID SPECIMENOrdering Facility: [facility] [place] Address: [address] [place] [address] Performed By: #### C CBF, [id number] ####[facility] LABCLIA [id number] [facility] [address] [place] [address] [place] Specimen source Nom (Body fld) Abdomen Normal [facility] Comment on above: Order Comment: Speci men Type: FLUID SPECIMENOrdering Facility: [facility] [place] Address: [address] [place] [address] Performed By: #### C CBF, [id number] ####[facility] LABCLIA [id number] [facility] [address], [place] [address] [place] WBC Manual cnt (Body fld) [#/Vol] 70 /uL Normal <1000 [facility] Comment on above: Order Comment: Speci men Type: FLUID SPECIMENOrdering Facility: [facility] [place] Address: [address] [place] [address] Performed By: #### C CBF, [id number] ####[facility] LABCLIA [id number] [facility] [address], [place] [address] [place] Bacteria Bld Culton 11-12-19 25 Bacteria identified Cx Nom (Bld) CULTURE, BLOOD: No growth 5 days GRAM STAIN: This blood culture had less than the recommended 8 ml per bottle, which could decrease the sensitivity of the test. Normal [facility] Comment on above: Performed By: #### 6 00-7 ####[facility] LABCLIA [id number] [address] [place] [address] [place] Bacteria identified Cx Nom (Bld) CULTURE, BLOOD: No growth 5 days Normal [facility] Comment on above: Performed By: #### 6 00-7 ####[facility] LABCLIA [id number] [facility] [address] [place] [address] [place] Bacteria Fld Culton 11-12-19 25 Bacteria identified Cx Nom (Body fld) CULTURE, BODY FLD: No growth GRAM STAIN: No organisms seen Many Polymorphonuclear leukocytes Gram stain performed on cytospun specimen. Gram stain from primary specimen Normal [facility] Comment on above: Performed By: #### 6 35-3, 611-4 ####[facility] LABCLIA [id number] [address] [address] [place] Bacteria Spec Anaerobe Culto n 11-11-2024 Bacteria identified Anaer cx Nom (Unsp spec) Negative Normal [facility] Comment on above: Performed By: #### 6 35-3, 611-4 ####[facility] LABCLIA [id number] [address] [address] [place] Basic metabolic 2000 panelon 11-11-2024 Anion gap [Moles/Vol] 12 mmol/L Normal 8-15 [facility] Comment on above: Order Comment: Speci men Type: BLOOD SPECIMENOrdering Facility: [facility] [place] Address: [address] [place] [address] Performed By: #### 2 276-4, 50546-5, 84448-9, 28608-1, 2777-1, 29284-0 ####[facility] LABCLIA [id number] [address] [address] [place] Calcium [Mass/Vol] 9.1 mg/dL Normal 8.5-10.2 [facility] Comment on above: Order Comment: Speci men Type: BLOOD SPECIMENOrdering Facility: [facility] [place] Address: [address] [place], [place] [address] Performed By: #### 2 276-4, 55593-8, 39466-2, 98711-4, 2776-1, 21669-7 ####[facility] LABCLIA [id number] [address] [address] [place] Chloride [Moles/Vol] 97 mmol/L Low 98-107 [facility] Comment on above: Order Comment: Speci men Type: BLOOD SPECIMENOrdering Facility: [facility] [place] Address: [address] [place], [place] [address] Performed By: #### 2 276-4, 46375-6, 59872-9, 80031-8, 2777-1, 35340-5 ####[facility] LABIA [id number] [address] [address] [place] CO2 [Moles/Vol] 14 mmol/L Low 22-30 [facility] Comment on above: Order Comment: Speci men Type: BLOOD SPECIMENOrdering Facility: [facility] [place] Address: [address] [place] [address] Performed By: #### 2 276-4, 74030-8, 72546-6, 33357-6, 2777-1, 72768-6 ####[facility] LABIA [id number] [address] [address] [place] Creatinine [Mass/Vol] 1.35 mg/dL High 0.73-1.22 [facility] Comment on above: Order Comment: Speci men Type: BLOOD SPECIMENOrdering Facility: [facility] [place] Address: [address] [place] [address] Performed By: #### 2 276-4, 08383-3, 20116-3, 78983-4, 2777-1, 62596-7 ####[facility] [id number] [address] [address] [place] Creatinine and Glomerular filtration rate.predicted panel (S/P/Bld) 61 mL/min/1.73m??? Normal >=60 [facility] Comment on above: Order Comment: Speci men Type: BLOOD SPECIMENOrdering Facility: [facility] [place] Address: [address] [place], [place] [address] Result Comment: Patric mated Glomerular Filtration Rate [...] actual GFR. Performed By: #### 2 276-4, 07262-9, 26652-0, 77719-5, 2776-1, ####[facility] LABCLIA [id number] [address] [address] [place] Glucose [Mass/Vol] 292 mg/dL High 74-99 [facility] Comment on above: Order Comment: Ezekiel ramirez Type: BLOOD SPECIMENOrdering Facility: [facility] [place] Address: [address] [place] [address] Result Comment: The [place] Diabetes Association (ADA) provides guidance for cutoff [...] Standards of Medical Care in Diabetes 2016, [place] [employer]. Diabetes Care. 2016.39(Suppl 1). Performed By: #### 2 276-4, 55796-1, 68541-0, 94854-4, 2776-1, ####[facility] LABCLIA [id number] [address] [address] [place] Potassium [Moles/Vol] 3.6 mmol/L Low 3.7-5.1 [facility] Comment on above: Order Comment: Ezekiel ramirez Type: BLOOD SPECIMENOrdering Facility: [facility] [place] Address: [address] [place] [address] Performed By: #### 2 276-4, 33116-9, 83487-7, 75549-1, 7-1, ####[facility] LABCLIA [id number] [place] [address] [place] Sodium [Moles/Vol] 123 mmol/L Low 136-144 [facility] Comment on above: Order Comment: Speci men Type: BLOOD SPECIMENOrdering Facility: [facility] [place] Address: [address] [place] [address] Performed By: #### 2 276-4, 27286-8, 77236-5, 70428-4, 2777-1, 61875-8 ####[facility] LABCLIA [id number] [place] [id number] [place] Urea nitrogen [Mass/Vol] 22 mg/dL Normal 9-24 [facility] Comment on above: Order Comment: Speci men Type: BLOOD SPECIMENOrdering Facility: [facility] [place] Address: [address] [place] [address] Performed By: #### 2 276-4, 17399-8, 18582-3, 16835-1, 2777-1, 59013-7 ####[facility] LABIA [id number] [place] [address] [place] CARDIOLIPIN IGG ABSon 2024 Cardiolipin IgG IA Qn (S) <9.0 Normal <15.0 [facility] Comment on above: Order Comment: Speci men Type: BLOOD SPECIMENOrdering Facility: [facility] [place] Address: [address] [place] [address] Result Comment: <15 GPL [id number] GPL Indeterminate>20 GPL PositiveThe following results were obtained with the Dopios QUANTA Lite TEZ IgG III ANDERS. Cardiolipin IgG values obtained with the different manufacturers' assay methods may not be used interchangeably. The magnitude of the reported IgG levels cannot be correlated to an endpoint titer. Performed By: #### 5 076-5KATHI CARDIM ####[facility] LABCLIA [id number] [place] [id number] [place] CARDIOLIPIN IGM ABSon 2024 Cardiolipin IgM IA Qn (S) <9.0 Normal <12.5 [facility] Comment on above: Order Comment: Speci men Type: BLOOD SPECIMENOrdering Facility: [facility] [place] Address: [address] [place] [address] Result Comment: <12. 5 MPL Zfgembpb24.5-20 MPL Indeterminate>20 MPL PositiveThe following results were obtained with the Dopios QUANTA Lite TEZ IgM III ANDERS. Cardiolipin IgM values obtained with the different manufacturers' assay methods may not be used interchangeably. The magnitude of the reported IgM levels cannot be correlated to an endpoint titer.??? Performed By: #### 5 076-5, MELVIN ARMENTA ####[facility] LABCLIA [id number] [place] [address] [place] CASE MANAGEMon 11-11-2024 CASE MANAGEM Normal [facility] CBC W Auto Differential pane l (Bld)on 11-11-2024 Basophils (Bld) [#/Vol] 0.04 10*3/uL Normal <0.11 [facility] Comment on above: Order Comment: Speci men Type: BLOOD SPECIMENOrdering Facility: [facility] [place] Address: [address] [place] [address] Performed By: #### I PFR, 49397-1, 02724-9 ####[facility] LABCLIA [id number] [address] [place] Basophils/100 WBC (Bld) 0.4 % Normal C [facility] Comment on above: Order Comment: Speci men Type: BLOOD SPECIMENOrdering Facility: [facility] [place] Address: [address] [place] [address] Performed By: #### I PFR, 33917-5, 51991-1 ####[facility] LABCLIA [id number] [place] [id number] [place] Differential cell count method Nom (Bld) Auto Normal [facility] Comment on above: Order Comment: Speci men Type: BLOOD SPECIMENOrdering Facility: [facility] [place] Address: [address] [place] [address] Performed By: #### I PFR, 61356-7, 21361-3 ####[facility] LABCLIA [id number] [place] [address] [place] Eosinophils (Bld) [#/Vol] 0.35 10*3/uL Normal <0.46 [facility] Comment on above: Order Comment: Speci men Type: BLOOD SPECIMENOrdering Facility: [facility] [place] Address: [address] [place] [address] Performed By: #### I PFR, 35820-2, 26861-9 ####[facility] LABIA [id number] [place] [address] [place] Eosinophils/100 WBC (Bld) 3.4 % Normal [facility] Comment on above: Order Comment: Speci men Type: BLOOD SPECIMENOrdering Facility: [facility] [place] Address: [address] [place] [address] Performed By: #### I PFR, 29267-8, 81096-6 ####[facility] LABIA [id number] [place] [address] [place] Erythrocyte distribution width (RBC) [Ratio] 17.4 % High 11.5-15.0 [facility] Comment on above: Order Comment: Speci men Type: BLOOD SPECIMENOrdering Facility: [facility] [place] Address: [address] [place] [address] Performed By: #### I PFR, 33729-9, 25588-8 ####[facility] LABCLIA [id number] [place] [address] [place] Hematocrit (Bld) [Volume fraction] 24.6 % Low 39.0-51.0 [facility] Comment on above: Order Comment: Speci men Type: BLOOD SPECIMENOrdering Facility: [facility] [place] Address: [address] [place] [address] Performed By: #### I PFR, 54649-6, 76578-4 ####[facility] LABCLIA [id number] [place] [id number] [place] Hemoglobin (Bld) [Mass/Vol] 8.4 g/dL Low 13.0-17.0 [facility] Comment on above: Order Comment: Speci men Type: BLOOD SPECIMENOrdering Facility: [facility] [place] Address: [address] [place] [address] Performed By: #### I PFR, 81243-5, 84037-5 ####[facility] LABCLIA [id number] [place] [address] [place] Immature granulocytes (Bld) [#/Vol] 0.08 10*3/uL Normal <0.10 [facility] Comment on above: Order Comment: Speci men Type: BLOOD SPECIMENOrdering Facility: [facility] [place] Address: [address] [place] [address] Performed By: #### I PFR, 28619-5, 15620-8 ####[facility] LABCLIA [id number] [place] [id number] [place] Immature granulocytes/100 WBC (Bld) 0.8 % Normal [facility] Comment on above: Order Comment: Speci men Type: BLOOD SPECIMENOrdering Facility: [facility] [place] Address: [address] [place] [address] Performed By: #### I PFR, 79551-1, 35367-9 ####[facility] LABCLIA [id number] [address] [address] [place] Lymphocytes (Bld) [#/Vol] 0.99 10*3/uL Low 1.00-4.00 [facility] Comment on above: Order Comment: Speci men Type: BLOOD SPECIMENOrdering Facility: [facility] [place] Address: [address] [place] [address] Performed By: #### I PFR, 33430-2, 83669-7 ####[facility] LABIA [id number] [place] [address] [place] Lymphocytes/100 WBC (Bld) 9.5 % Normal [facility] Comment on above: Order Comment: Speci men Type: BLOOD SPECIMENOrdering Facility: [facility] [place] Address: [address] [place] [address] Performed By: #### I PFR, 49231-7, 02521-1 ####[facility] LABCLIA [id number] [place] [id number] [place] MCH (RBC) [Entitic mass] 31.9 pg Normal 26.0-34.0 [facility] Comment on above: Order Comment: Speci men Type: BLOOD SPECIMENOrdering Facility: [facility] [place] Address: [address] [place] [address] Performed By: #### I PFR, 13175-5, ####[facility] LABIA [id number] [place] [address] [place] MCHC (RBC) [Mass/Vol] 34.1 g/dL Normal 30.5-36.0 [facility] Comment on above: Order Comment: Speci men Type: BLOOD SPECIMENOrdering Facility: [facility] [place] Address: [address] [place] [address] Performed By: #### I PFR, 31639-7, ####[facility] LABIA [id number] [place] [id number] [place] MCV (RBC) [Entitic vol] 93.5 fL Normal 80.0-100.0 C [facility] Comment on above: Order Comment: Speci men Type: BLOOD SPECIMENOrdering Facility: [facility] [place] Address: [address] [place] [address] Performed By: #### I PFR, 62715-5, 85175-2 ####[facility] LABCLIA [id number] [address] [address] [place] Monocytes (Bld) [#/Vol] 0.97 10*3/uL High <0.87 [facility] Comment on above: Order Comment: Speci men Type: BLOOD SPECIMENOrdering Facility: [facility] [place] Address: [address] [place] [address] Performed By: #### I PFR, 46834-5, 03290-1 ####[facility] LABCLIA [id number] [place] [id number] [place] Monocytes/100 WBC (Bld) 9.3 % Normal [facility] Comment on above: Order Comment: Speci men Type: BLOOD SPECIMENOrdering Facility: [facility] [place] Address: [address] [place] [address] Performed By: #### I PFR, 31407-7, 74318-2 ####[facility] LABCLIA [id number] [place] [address] [place] Neutrophils (Bld) [#/Vol] 8.00 10*3/uL High 1.45-7.50 [facility] Comment on above: Order Comment: Speci men Type: BLOOD SPECIMENOrdering Facility: [facility] [place] Address: [address] [place] [address] Performed By: #### I PFR, 06752-2, 27176-5 ####[facility] LABCLIA [id number] [place] [id number] [place] Neutrophils/100 WBC (Bld) 76.6 % Normal [facility] Comment on above: Order Comment: Speci men Type: BLOOD SPECIMENOrdering Facility: [facility] [place] Address: [address] [place] [address] Performed By: #### I PFR, 22506-2, 72047-0 ####[facility] LABCLIA [id number] [place] [id number] [place] Nucleated RBC (Bld) [#/Vol] 10*3/uL Normal <0.01 [facility] Comment on above: Order Comment: Speci men Type: BLOOD SPECIMENOrdering Facility: [facility] [place] Address: [address] [place] [address] Performed By: #### I PFR, 73618-8, 08192-8 ####[facility] LABCLIA [id number] [place] [address] [place] Nucleated RBC/100 WBC (Bld) [Ratio] 0.0 /100 WBC Normal [facility] Comment on above: Order Comment: Speci men Type: BLOOD SPECIMENOrdering Facility: [facility] [place] Address: [address] [place] [address] Performed By: #### I PFR, 19732-4, 05817-9 ####[facility] LABCLIA [id number] [place] [address] [place] Platelet mean volume (Bld) [Entitic vol] 11.5 fL Normal 9.0-12.7 [facility] Comment on above: Order Comment: Speci men Type: BLOOD SPECIMENOrdering Facility: [facility] [place] Address: [address] [place] [address] Performed By: #### I PFR, 52958-7, 53102-0 ####[facility] LABCLIA [id number] [place] [id number] [place] Platelets (Bld) [#/Vol] 43 10*3/uL Low 150-400 C [facility] Comment on above: Order Comment: Speci men Type: BLOOD SPECIMENOrdering Facility: [facility] [place] Address: [address] [place] [address] Performed By: #### I PFR, 74457-4, 75853-3 ####[facility] LABCLIA [id number] [address] [address] [place] RBC (Bld) [#/Vol] 2.63 10*6/uL Low 4.20-6.00 [facility] Comment on above: Order Comment: Speci men Type: BLOOD SPECIMENOrdering Facility: [facility] [place] Address: [address] [place] [address] Performed By: #### I PFR, 71395-1, 52007-8 ####[facility] LABCLIA [id number] [place] [address] [place] WBC (Bld) [#/Vol] 10.43 10*3/uL Normal 3.70-11.00 [facility] Comment on above: Order Comment: Speci men Type: BLOOD SPECIMENOrdering Facility: [facility] [place] Address: [address] [place] [address] Performed By: #### I PFR, 33215-5, 57364-8 ####[facility] LABCLIA [id number] [place] [address] [place] Basophils (Bld) [#/Vol] 0.06 10*3/uL Normal <0.11 [facility] Comment on above: Order Comment: Speci men Type: BLOOD SPECIMENOrdering Facility: [facility] [place] Address: [address] [place] [address] Performed By: #### 5 5454-3, 65359-0 ####[facility] LABCLIA [id number] [place] [address] [place] Basophils/100 WBC (Bld) 0.4 % Normal [facility] Comment on above: Order Comment: Speci men Type: BLOOD SPECIMENOrdering Facility: [facility] [place] Address: [address] [place] [address] Performed By: #### 5 5454-3, 84974-9 ####[facility] LABCLIA [id number] [place] [id number] [place] Differential cell count method Nom (Bld) Auto Normal [facility] Comment on above: Order Comment: Speci men Type: BLOOD SPECIMENOrdering Facility: [facility] [place] Address: [address] [place] [address] Performed By: #### 5 5454-3, 04623-5 ####[facility] LABCLIA [id number] [place] [address] [place] Eosinophils (Bld) [#/Vol] 0.40 10*3/uL Normal <0.46 [facility] Comment on above: Order Comment: Speci men Type: BLOOD SPECIMENOrdering Facility: [facility] [place] Address: [address] [place] [address] Performed By: #### 5 5454-3, 74990-1 ####[facility] LABCLIA [id number] [place] [address] [place] Eosinophils/100 WBC (Bld) 2.5 % Normal [facility] Comment on above: Order Comment: Speci men Type: BLOOD SPECIMENOrdering Facility: [facility] [place] Address: [address] [place] [address] Performed By: #### 5 5454-3, 00496-8 ####[facility] LABCLIA [id number] [place] [address] [place] Erythrocyte distribution width (RBC) [Ratio] 18.0 % High 11.5-15.0 [facility] Comment on above: Order Comment: Speci men Type: BLOOD SPECIMENOrdering Facility: [facility] [place] Address: [address] [place] [address] Performed By: #### 5 5454-3, 33279-8 ####[facility] LABCLIA [id number] [place] [id number] [place] Hematocrit (Bld) [Volume fraction] 30.4 % Low 39.0-51.0 [facility] Comment on above: Order Comment: Speci men Type: BLOOD SPECIMENOrdering Facility: [facility] [place] Address: [address] [place] [address] Performed By: #### 5 5454-3, 76311-9 ####[facility] LABCLIA [id number] [place] [id number] [place] Hemoglobin (Bld) [Mass/Vol] 10.2 g/dL Low 13.0-17.0 [facility] Comment on above: Order Comment: Speci men Type: BLOOD SPECIMENOrdering Facility: [facility] [place] Address: [address] [place] [address] Performed By: #### 5 5454-3, 61956-0 ####[facility] LABCLIA [id number] [place] [address] [place] Immature granulocytes (Bld) [#/Vol] 0.18 10*3/uL High <0.10 [facility] Comment on above: Order Comment: Speci men Type: BLOOD SPECIMENOrdering Facility: [facility] [place] Address: [address] [place] [address] Performed By: #### 5 5454-3, 10841-2 ####[facility] LABCLIA [id number] [place] [address] [place] Immature granulocytes/100 WBC (Bld) 1.1 % Normal [facility] Comment on above: Order Comment: Speci men Type: BLOOD SPECIMENOrdering Facility: [facility] [place] Address: [address] [place] [address] Performed By: #### 5 5454-3, 91398-3 ####[facility] LABCLIA [id number] [place] [id number] [place] Lymphocytes (Bld) [#/Vol] 1.19 10*3/uL Normal 1.00-4.00 [facility] Comment on above: Order Comment: Speci men Type: BLOOD SPECIMENOrdering Facility: [facility] [place] Address: [address] [place] [address] Performed By: #### 5 5454-3, 93375-8 ####[facility] LABCLIA [id number] [place] [address] [place] Lymphocytes/100 WBC (Bld) 7.6 % Normal [facility] Comment on above: Order Comment: Speci men Type: BLOOD SPECIMENOrdering Facility: [facility] [place] Address: [address] [place] [address] Performed By: #### 5 5454-3, 53344-6 ####[facility] LABCLIA [id number] [place] [address] [place] MCH (RBC) [Entitic mass] 31.3 pg Normal 26.0-34.0 [facility] Comment on above: Order Comment: Speci men Type: BLOOD SPECIMENOrdering Facility: [facility] [place] Address: [address] [place] [address] Performed By: #### 5 5454-3, 58928-2 ####[facility] LABIA [id number] [place] [address] [place] MCHC (RBC) [Mass/Vol] 33.6 g/dL Normal 30.5-36.0 [facility] Comment on above: Order Comment: Speci men Type: BLOOD SPECIMENOrdering Facility: [facility] [place] Address: [address] [place] [address] Performed By: #### 5 5454-3, 52967-1 ####[facility] LABIA [id number] [place] [address] [place] MCV (RBC) [Entitic vol] 93.3 fL Normal 80.0-100.0 C [facility] Comment on above: Order Comment: Speci men Type: BLOOD SPECIMENOrdering Facility: [facility] [place] Address: [address] [place] [address] Performed By: #### 5 5454-3, 02689-1 ####[facility] LABCLIA [id number] [place] [address] [place] Monocytes (Bld) [#/Vol] 1.36 10*3/uL High <0.87 [facility] Comment on above: Order Comment: Speci men Type: BLOOD SPECIMENOrdering Facility: [facility] [place] Address: [address] [place] [address] Performed By: #### 5 5454-3, 18366-7 ####[facility] LABCLIA [id number] [place] [address] [place] Monocytes/100 WBC (Bld) 8.6 % Normal [facility] Comment on above: Order Comment: Speci men Type: BLOOD SPECIMENOrdering Facility: [facility] [place] Address: [address] [place] [address] Performed By: #### 5 5454-3, 21981-8 ####[facility] LABCLIA [id number] [place] [address] [place] Neutrophils (Bld) [#/Vol] 12.55 10*3/uL High 1.45-7.50 [facility] Comment on above: Order Comment: Speci men Type: BLOOD SPECIMENOrdering Facility: [facility] [place] Address: [address] [place] [address] Performed By: #### 5 5454-3, 49341-4 ####[facility] LABCLIA [id number] [place] [address] [place] Neutrophils/100 WBC (Bld) 79.8 % Normal [facility] Comment on above: Order Comment: Speci men Type: BLOOD SPECIMENOrdering Facility: [facility] [place] Address: [address] [place] [address] Performed By: #### 5 5454-3, 81092-0 ####[facility] LABCLIA [id number] [place] [address] [place] Nucleated RBC (Bld) [#/Vol] 10*3/uL Normal <0.01 [facility] Comment on above: Order Comment: Speci men Type: BLOOD SPECIMENOrdering Facility: [facility] [place] Address: [address] [place] [address] Performed By: #### 5 5454-3, 62363-7 ####[facility] LABIA [id number] [place] [address] [place] Nucleated RBC/100 WBC (Bld) [Ratio] 0.0 /100 WBC Normal [facility] Comment on above: Order Comment: Speci men Type: BLOOD SPECIMENOrdering Facility: [facility] [place] Address: [address] [place] [address] Performed By: #### 5 5454-3, 35762-8 ####[facility] [id number] [place] [address] [place] Platelet mean volume (Bld) [Entitic vol] 12.1 fL Normal 9.0-12.7 [facility] Comment on above: Order Comment: Speci men Type: BLOOD SPECIMENOrdering Facility: [facility] [place] Address: [address] [place] [address] Performed By: #### 5 5454-3, 22627-5 ####[facility] [id number] [place] [address] [place] Platelets (Bld) [#/Vol] 52 10*3/uL Low 150-400 C [facility] Comment on above: Order Comment: Speci men Type: BLOOD SPECIMENOrdering Facility: [facility] [place] Address: [address] [place] [address] Result Comment: Resu lts checked and verified.No clot detected. Performed By: #### 5 5454-3, 71438-7 ####[facility] [id number] [place] [address] [place] RBC (Bld) [#/Vol] 3.26 10*6/uL Low 4.20-6.00 [facility] Comment on above: Order Comment: Speci men Type: BLOOD SPECIMENOrdering Facility: [facility] [place] Address: [address] [place] [address] Performed By: #### 5 5454-3, 90461-6 ####[facility] [id number] [place] [address] [place] WBC (Bld) [#/Vol] 15.74 10*3/uL High 3.70-11.00 [facility] Comment on above: Order Comment: Speci men Type: BLOOD SPECIMENOrdering Facility: [facility] [place] Address: [address] [place] [address] Performed By: #### 5 5454-3, 97310-3 ####[facility] [id number] [place] [address] [place] CEA SerPl-mCncon 11-11-2024 Carcinoembryonic Ag [Mass/Vol] 13.0 ng/mL High <=2.9 [facility] Comment on above: Order Comment: Speci men Type: BLOOD SPECIMENOrdering Facility: [facility] [place] Address: [address] [place] [address] Result Comment: Carc inoembryonic antigen test is used as an aid in monitoring response to treatment or recurrence in patients with established colorectal, breast, lung, prostatic, pancreatic, and ovarian carcinomas. Clinical correlation is required.The Carcinoembryonic antigen test was performed using the [employer] DXI paramagnetic particle chemiluminescent immunoassay method. Results obtained with different assay methods or kits cannot be used interchangeably. Performed By: #### 2 039-6, 58685-7, 2532-0 ####[facility] [id number] [place] [id number] [place] COAG CORE PANEL BLDon 2024 aPTT Coag (PPP) [Time] 41.3 s High 23.0-32.4 [facility] Comment on above: Order Comment: Speci men Type: BLOOD SPECIMENOrdering Facility: [facility] [place] Address: [address] [place] [address] Performed By: #### C ORPNL ####[facility] LABCLIA [id number] [place] [address] [place] Fibrinogen Coag (PPP) [Mass/Vol] 88 mg/dL Low 200-400 [facility] Comment on above: Order Comment: Speci men Type: BLOOD SPECIMENOrdering Facility: [facility] [place] Address: [address] [place] [address] Result Comment: Samp le checked for clot.Result rechecked. Performed By: #### C ORPNL ####[facility] LABIA [id number] [place] [address] [place] INR Coag (PPP) [Relative time] 2.1 {INR} High 0.9-1.3 [facility] Comment on above: Order Comment: Speci james Type: BLOOD SPECIMENOrdering Facility: [facility] [place] Address: [address] [place] [address] Result Comment: Sarah min K Antagonist (VKA) Therapeutic Range: INR 2 to 3 (Target INR of 2.5)Note: For patients treated with VKA drugs, such as warfarin, the [place] [employer] 2012 Guideline recommends [...] al. Chest 2012, 141:7S-47SNishimura RA, et al. [facility] 2017, 70: 252-289 Performed By: #### C ORPNL ####[facility] LABIA [id number] [place] [id number] [place] PT Coag (PPP) [Time] 21.8 s High 9.7-13.0 [facility] Comment on above: Order Comment: Speci men Type: BLOOD SPECIMENOrdering Facility: [facility] [place] Address: [address] [place] [address] Performed By: #### C ORPNL ####[facility] LABCLIA [id number] [place] [id number] [place] CONSULTon 11-11-2024 CONSULT Normal [facility] CONSULT Normal [facility] CRP SerPl-mCncon 11-11-2024 CRP [Mass/Vol] 0.5 mg/dL Normal <0.9 [facility] Comment on above: Order Comment: Speci men Type: BLOOD SPECIMENOrdering Facility: [facility] [place] Address: [address] [place] [address] Performed By: #### D ASHLEY, 1986-12 ####[facility] LABCLIA [id number] [place] [address] [place] [facility] CYTOLOGY NON-GYNon AP DISCLAIMER Normal [facility] Comment on above: Order Comment: Speci men Type: FLUID SPECIMENOrdering Facility: [facility] [place] Address: [address] [place] [address] Result Comment: Shellie pugh Developed Test (LDT) Disclaimer:Performance characteristics of immunohistochemical, immunofluorescent, and chromogenic in-situ hybridization tests have been determined by the performing laboratory within [facility]'s Thai [facility] Pathology and Laboratory Medicine Department ([facility], [facility], [facility], [facility], [facility], [facility], or [facility]) in a manner consistent with CLIA requirements. One or more of these tests may not have been cleared or approved by the FDA. [facility] is regulated under CLIA as qualified to perform high-complexity testing. These tests are used for clinical purposes. These should not be regarded as investigational or for research. Positive and negative controls stain appropriately. Performed By: #### C YTONON ####[facility] LABCLIA [id number] [address] [id number] [address] [place] CASE REPORT Normal [facility] Comment on above: Order Comment: Speci men Type: FLUID SPECIMENOrdering Facility: [facility] [place] Address: [address] [place] [address] Result Comment: [facility] Cytology Report Case: [id number] Provider: Yaritza Juarez, Collected: 11/11/2024 05:14 PM OUTSIDE MACHINIST HELPER.CNPOrdering Location: [place] [address] Received: 11/11/2024 08:30 PMPathologist: Sameer Fournier MDSpecimen: Abdomen Performed By: #### C YTONON ####[facility] LABCLIA [id number] [place] [address] [place] CLINICAL HISTORY paracentesis fluid Normal [facility] Comment on above: Order Comment: Speci men Type: FLUID SPECIMENOrdering Facility: [facility] [place] Address: [address] [place] [address] Performed By: #### C YTONON ####[facility] LABCLIA [id number] [place] [id number] [place] FINAL DIAGNOSIS Normal [facility] Comment on above: Order Comment: Speci men Type: FLUID SPECIMENOrdering Facility: [facility] [place] Address: [address] [place] [address] Result Comment: A - Abdomen, Fluid Negative for malignant cells.The following cell blocks were associated with this case:A1\X09\Cell Block, Alcohol Fixed\X09\ at 1034 EDT Performed By: #### C YTONON ####[facility] LABCLIA [id number] [place] [id number] [place] FINAL PERFORMING LAB Normal [facility] Comment on above: Order Comment: Speci men Type: FLUID SPECIMENOrdering Facility: [facility] [place] Address: [address] [place] [address] Result Comment: Tech nical component, zinc skimmer screening performed at: [facility], [address] [place] [address] CLIA: [id number] interpretation performed at: [facility], [address] [place] [address] CLIA# [id number] Director: Titi Voss MD Performed By: #### C YTONON ####[facility] LABCLIA [id number] [place] [address] [place] GROSS DESCRIPTION A. Abdomen Normal [facility] Comment on above: Order Comment: Speci men Type: FLUID SPECIMENOrdering Facility: [facility] [place] Address: [address] [place] [address] Result Comment: 1450 cc opaque lexis fluid . ThinPrep and Cell Block prepared. Performed By: #### C YTONON ####[facility] [id number] [place] [address] [place] Cancer Ag19-9 SerPl-aCncon 0 11-11-2024 Cancer Ag 19-9 Qn <2.0 Normal <36.0 [facility] Comment on above: Order Comment: Speci men Type: BLOOD SPECIMENOrdering Facility: [facility] [place] Address: [address] [place] [address] Result Comment: [facility] er antigen 19-9 test is used as an aid in monitoring response to treatment or recurrence in patients with established pancreatic, hepatobiliary, or gastrointestinal malignancies. Clinical correlation is required.The CA 19-9 Antigen test was performed using the [employer] Unicel DXI paramagnetic particle chemiluminescent immunoassay method. Results obtained with different assay methods or kits cannot be used interchangeably. Performed By: #### 2 039-6, 02460-9, 2532-0 ####[facility] LABIA [id number] [place] [address] [place] Cardiolipin IgA Ser IA-aCnco n 11-11-2024 Cardiolipin IgA IA Qn (S) 9.7 [APL'U] Normal <12.0 [facility] Comment on above: Order Comment: Ezekiel ramirez Type: BLOOD SPECIMENOrdering Facility: [facility] [place] Address: [address] [place] [address] Result Comment: <12 APL [id number] APL Indeterminate>20 APL PositiveThe following results were obtained with the AlloCureA Lite TEZ IgA III ANDERS. Cardiolipin IgA values obtained with the different manufacturers' assay methods may not be used interchangeably. The magnitude of the reported IgA levels cannot be correlated to an endpoint titer. Performed By: #### 5 076-5, MELVIN ARMENTA ####[facility] LABCLIA [id number] [place] [address] [place] DIRECT BILIRUBIN BLOODon Bilirubin.conjugated [Mass/Vol] 1.1 mg/dL High <0.3 [facility] Comment on above: Order Comment: Ezekiel ramirez Type: BLOOD SPECIMENOrdering Facility: [facility] [place] Address: [address] [place] [address] Performed By: #### D ASHLEY, 1986-12 ####[facility] LABCLIA [id number] [place] [address] [place] ECG COMPLETEon 11-11-2024 ECG COMPLETE Normal [facility] [id number] 11-11-2024 ECG01 Normal [facility] Ferritin SerPl-mCncon 2024 Ferritin [Mass/Vol] 82.4 ng/mL Normal 30.3-565.7 [facility] Comment on above: Order Comment: Ezekiel ramirez Type: BLOOD SPECIMENOrdering Facility: [facility] [place] Address: [address] [place] [address] Performed By: #### 2 276-4, 04338-9, 30609-3, 17054-8, 2777-1, 54176-8 ####[facility] LABCLIA [id number] [place] [id number] [place] Fibrinogen PPP-mCncon 2024 Fibrinogen Coag (PPP) [Mass/Vol] 90 mg/dL Low 200-400 [facility] Comment on above: Order Comment: Speci men Type: BLOOD SPECIMENOrdering Facility: [facility] [place] Address: [address] [place] [address] Result Comment: Lino daniel checked for clot.Result rechecked. Performed By: #### 3 255-7, 61438-8 ####[facility] LABIA [id number] [place] [address] [place] HISTORY PHYSICALon HISTORY PHYSICAL Normal [facility] HYPERCOAG PANELon 11-11-2024 Activated protein C resistance Coag (PPP) [Time ratio] 2.10 Ratio Normal >1.96 [facility] Comment on above: Order Comment: Speci men Type: BLOOD SPECIMENOrdering Facility: [facility] [place] Address: [address] [place] [address] Performed By: #### L [id number], HCOAG, 6303-2, 44836-7, 12857-6 ####[facility] LABCLIA [id number] [place] [id number] [place] Antithrombin actual/normal Chromogenic method (PPP) [Rel catalytic activity/Vol] 30 % Low 84-138 [facility] Comment on above: Order Comment: Speci men Type: BLOOD SPECIMENOrdering Facility: [facility] [place] Address: [address] [place] [address] Performed By: #### L [id number], HCOAG, 6303-2, 28286-1, 70203-3 ####[facility] LABIA [id number] [address] [address] [place] aPTT Coag (Bld) [Time] 47.9 s High 24.0-35.1 [facility] Comment on above: Order Comment: Speci men Type: BLOOD SPECIMENOrdering Facility: [facility] [place] Address: [address] [place] [address] Performed By: #### L [id number], HCOAG, 6303-2, 46193-8, 06806-8 ####[facility] LABIA [id number] [place] [address] [place] aPTT W excess hexagonal phase phospholipid Coag (PPP) [Time] 36.5 seconds Normal 34.0-51.8 [facility] Comment on above: Order Comment: Speci men Type: BLOOD SPECIMENOrdering Facility: [facility] [place] Address: [address] [place] [address] Performed By: #### L [id number], HCOAG, 6303-2, 14419-4, 70265-0 ####[facility] [id number] [place] [address] [place] aPTT-LA w 1:1 PNP Coag (PPP) [Time] 32.5 seconds Normal <33.2 [facility] Comment on above: Order Comment: Speci men Type: BLOOD SPECIMENOrdering Facility: [facility] [place] Address: [address] [place] [address] Result Comment: This test was developed, and its performance characteristics determined by the [facility] Department of Pathology and Laboratory Medicine. It has not been cleared or approved by the FDA. The [facility] Department of Pathology and Laboratory Medicine is regulated under CLIA as qualified to perform high-complexity testing. This test is used for clinical purposes. It should not be regarded as investigational or for research. Performed By: #### L [id number], HCOAG, 6303-2, 09198-9, 95094-8 ####[facility] LABIA [id number] [place] [id number] [place] Coagulation factor VIII activity actual/normal Coag (PPP) [Relative time] 332 % High 50-173 [facility] Comment on above: Order Comment: Speci men Type: BLOOD SPECIMENOrdering Facility: [facility] [place] Address: [address] [place] [address] Performed By: #### L [id number], HCOAG, 6303-2, 13094-0, 91507-3 ####[facility] LABCLIA [id number] [place] [address] [place] Coagulation factor X activated act Coag Qn (PPP) <0.10 Normal <0.10 [facility] Comment on above: Order Comment: Speci men Type: BLOOD SPECIMENOrdering Facility: [facility] [place] Address: [address] [place] [address] Result Comment: This test was developed, and its performance characteristics determined by the [facility] Department of Pathology and Laboratory Medicine. It has not been cleared or approved by the FDA. The [facility] Department of Pathology and Laboratory Medicine is regulated under CLIA as qualified to perform high-complexity testing. This test is used for clinical purposes. It should not be regarded as investigational or for research. Performed By: #### L [id number], HCOAG, 6303-2, 95768-9, 33322-5 ####[facility] LABIA [id number] [place] [address] [place] Delta dRVVT Coag (PPP) [Time diff] 2.2 delta seconds Normal <7.1 [facility] Comment on above: Order Comment: Speci men Type: BLOOD SPECIMENOrdering Facility: [facility] [place] Address: [address] [place] [address] Performed By: #### L [id number], HCOAG, 6303-2, 83571-2, 15312-9 ####[facility] LABIA [id number] [place] [address] [place] dRVVT W excess hexagonal phase phospholipid actual/normal Coag (PPP) [Relative time] 34.3 seconds Normal 34.2-47.9 [facility] Comment on above: Order Comment: Speci men Type: BLOOD SPECIMENOrdering Facility: [facility] [place] Address: [address] [place] [address] Performed By: #### L [id number], HCOAG, 6303-2, 62180-9, 72063-4 ####[facility] LABCLIA [id number] [address] [address] [place] Protein C actual/normal Coag (PPP) [Relative time] 24 % Low 76-147 [facility] Comment on above: Order Comment: Speci men Type: BLOOD SPECIMENOrdering Facility: [facility] [place] Address: [address] [place] [address] Performed By: #### L [id number], HCOAG, 6303-2, 95178-6, 59591-3 ####[facility] LABIA [id number] [place] [address] [place] Protein S actual/normal Coag (PPP) [Relative time] 28 % Low 59-152 [facility] Comment on above: Order Comment: Speci men Type: BLOOD SPECIMENOrdering Facility: [facility] [place] Address: [address] [place] [address] Performed By: #### L [id number], HCOAG, 6303-2, 85693-3, 66307-6 ####[facility] [id number] [place] [address] [place] Protein S Free Ag actual/normal IA (PPP) [Relative mass conc] 45 % Low 55-148 [facility] Comment on above: Order Comment: Speci men Type: BLOOD SPECIMENOrdering Facility: [facility] [place] Address: [address] [place] [address] Performed By: #### L [id number], HCOAG, 6303-2, 85718-2, 71818-9 ####[facility] LABIA [id number] [address] [address] [place] Thrombin time Coag (PPP) [Time] 20.0 seconds High <18.6 [facility] Comment on above: Order Comment: Speci men Type: BLOOD SPECIMENOrdering Facility: [facility] [place] Address: [address] [place] [address] Performed By: #### L [id number], HCOAG, 6303-2, 71118-8, 20820-1 ####[facility] LABCLIA [id number] [place] [address] [place] HYPERCOAG PANEL INTERPon INTERPRETATION (HYPERCOAG) Normal [facility] Comment on above: Order Comment: Speci men Type: BLOOD SPECIMENOrdering Facility: [facility] [place] Address: [address] [place] [address] Result Comment: Amisha gallegos - see comment [...] negative for the c.*97G>A variant (legacy name 23934L>A) in the 3' untranslated region of the [...] phase phospholipid neutralization. Performed By: #### L [id number], HCOAG, 6303-2, 12651-2, 99377-3 ####[facility] [id number] [place] [address] [place] Pathologist name Reviewed by Julia Howell M.D., Ph.D [facility] Comment on above: Order Comment: Speci men Type: BLOOD SPECIMENOrdering Facility: [facility] [place] Address: [address] [place] [address] Performed By: #### L [id number], HCOAG, 6303-2, 93702-0, 70680-3 ####[facility] [id number] [place] [address] [place] Haptoglob SerPl-mCncon 11-11 Haptoglobin [Mass/Vol] 15 mg/dL Low 31-238 [facility] Comment on above: Order Comment: Ezekiel ramirez Type: BLOOD SPECIMENOrdering Facility: [facility] [place] Address: [address] [place] [address] Performed By: #### 2 4362-6, 4542-7 ####[facility] LABCLIA [id number] [address] [address] [place] HbA1c (Bld)on 11-11-2024 Average glucose Estimated from glycated hemoglobin (Bld) [Mass/Vol] 154 mg/dL Normal [facility] Comment on above: Order Comment: Ezekiel ramirez Type: BLOOD SPECIMENOrdering Facility: [facility] [place] Address: [address] [place] [address] Result Comment: eAG: (Estimated average glucose) is a calculated value from HgbA1c and is parts sales representative of the average blood glucose level in the last 2-3 month period. Performed By: #### 5 5454-3, 98321-6 ####[facility] LABIA [id number] [place] [address] [place] HbA1c (Bld) [Mass fraction] 7.0 % High 4.3-5.6 [facility] Comment on above: Order Comment: Ezekiel ramirez Type: BLOOD SPECIMENOrdering Facility: [facility] [place] Address: [address] [place] [address] Result Comment: [place] Diabetes Association guidelines indicate that patients with HgbA1c in the range 5.7-6.4% are at increased risk for development of diabetes, and intervention by lifestyle modification may be beneficial. HgbA1c greater or equal to 6.5% is considered diagnostic of diabetes. Performed By: #### 5 5454-3, 17437-7 ####[facility] LABCLIA [id number] [address] [address] [place] Hepatic function 2000 panelo n 11-11-2024 Albumin [Mass/Vol] 2.1 g/dL Low 3.9-4.9 [facility] Comment on above: Order Comment: Ezekiel ramirez Type: BLOOD SPECIMENOrdering Facility: [facility] [place] Address: [address] [place], [place] [address] Performed By: #### 2 276-4, 33030-5, 22802-9, 46613-6, 2776-1, ####[facility] LABCLIA [id number] [facility] [address] [place] [address] [place] ALP [Catalytic activity/Vol] 310 U/L High 38-113 [facility] Comment on above: Order Comment: Speci men Type: BLOOD SPECIMENOrdering Facility: [facility] [place] Address: [address] [place] [address] Performed By: #### 2 276-4, 39975-7, 30336-3, 61241-6, 2776-1, ####[facility] LABCLIA [id number] [address] [address] [place] ALT [Catalytic activity/Vol] 31 U/L Normal 10-54 [facility] Comment on above: Order Comment: Speci men Type: BLOOD SPECIMENOrdering Facility: [facility] [place] Address: [address] [place] [address] Performed By: #### 2 276-4, 22315-3, 45788-1, 87619-8, 2776-1, ####[facility] LABCLIA [id number] [address] [place] [address] [place] AST [Catalytic activity/Vol] 44 U/L High 14-40 [facility] Comment on above: Order Comment: Speci men Type: BLOOD SPECIMENOrdering Facility: [facility] [place] Address: [address] [place], [place] [address] Performed By: #### 2 276-4, 28518-3, 35685-4, 95346-3, 2776-1, ####[facility] LABCLIA [id number] [facility] [address] [address] [place] Bilirubin [Mass/Vol] 1.6 mg/dL High 0.2-1.3 [facility] Comment on above: Order Comment: Speci men Type: BLOOD SPECIMENOrdering Facility: [facility] [place] Address: [address] [place] [address] Performed By: #### 2 276-4, 35910-6, 31620-2, 29080-4, 2777-1, 99286-3 ####[facility] LABCLIA [id number] [place] [address] [place] Bilirubin.conjugated [Mass/Vol] 1.0 mg/dL High <0.3 [facility] Comment on above: Order Comment: Speci men Type: BLOOD SPECIMENOrdering Facility: [facility] [place] Address: [address] [place] [address] Performed By: #### 2 276-4, 12205-4, 98015-4, 38369-3, 7-1, 31640-9 ####[facility] LABCLIA [id number] [place] [address] [place] Protein [Mass/Vol] 5.3 g/dL Low 6.3-8.0 [facility] Comment on above: Order Comment: Speci men Type: BLOOD SPECIMENOrdering Facility: [facility] [place] Address: [address] [place] [address] Performed By: #### 2 276-4, 06630-4, 72478-1, 65525-3, 2776-1, 35644-3 ####[facility] LABCLIA [id number] [place] [address] [place] IMMATURE PLATELET FRACTIONon 11-11-2024 Platelets reticulated/100 platelets Auto (Bld) 7.7 % High 0.9-7.2 [facility] Comment on above: Order Comment: Speci men Type: BLOOD SPECIMENOrdering Facility: [facility] [place] Address: [address] [place] [address] Performed By: #### I PFR, 83557-8, 56259-2 ####[facility] LABCLIA [id number] [address] [address] [place] Iron and Iron binding capaci ty panelon 11-11-2024 Iron [Mass/Vol] 34 ug/dL Low 41-186 [facility] Comment on above: Order Comment: Speci men Type: BLOOD SPECIMENOrdering Facility: [facility] [place] Address: [address] [place] [address] Performed By: #### 2 276-4, 82170-6, 51649-3, 73861-5, 2777-1, 68221-8 ####[facility] LABCLIA [id number] [place] [address] [place] Iron binding capacity [Mass/Vol] 180 ug/dL Low 232-386 [facility] Comment on above: Order Comment: Speci men Type: BLOOD SPECIMENOrdering Facility: [facility] [place] Address: [address] [place] [address] Performed By: #### 2 276-4, 00789-4, 90582-3, 42596-7, 2777-1, 20159-8 ####[facility] LABCLIA [id number] [place] [address] [place] Iron/TIBC [Molar ratio] 18.9 % Normal 15.0-57.0 C [facility] Comment on above: Order Comment: Speci men Type: BLOOD SPECIMENOrdering Facility: [facility] [place] Address: [address] [place] [address] Performed By: #### 2 276-4, 33438-3, 70771-2, 31836-5, 2777-1, 35353-9 ####[facility] LABCLIA [id number] [place] [address] [place] LDH SerPl-cCncon 11-11-2024 LDH [Catalytic activity/Vol] 321 U/L High 135-225 [facility] Comment on above: Order Comment: Speci men Type: BLOOD SPECIMENOrdering Facility: [facility] [place] Address: [address] [place] [address] Performed By: #### 2 039-6, 47604-9, 2532-0 ####[facility] [id number] [place] [address] [place] Lipase Fld-cCncon 11-11-2024 Lipase (Body fld) [Catalytic activity/Vol] 29 U/L Normal See Comment [facility] Comment on above: Order Comment: Spechelder ramirez Type: FLUID SPECIMENOrdering Facility: [facility] [place] Address: [address] [place] [address] Result Comment: Pleu ral fluids: Lipase measurement [...] document C49A. JoePAULETTE rodriguez: Clinical Laboratory Standards [place]: 2007.2. David Guillory. A review of pancreatic cyst fluid analysis in the differential diagnosis of pancreatic cyst lesions. [facility] [employer] 2013:0:1-16. Performed By: #### 1 747-5, 1795-4, 43559-3, 2881-1 ####[facility] LABIA [id number] [place] [id number] [place] Lupus anticoagulant neutrali zation platelet Coag Ql (PPP)on 11-11-2024 aPTT Coag (Bld) [Time] 56.8 s High 30.2-43.0 [facility] Comment on above: Order Comment: Ezekiel ramirez Type: BLOOD SPECIMENOrdering Facility: [facility] [place] Address: [address] [place] [address] Result Comment: This test was developed, and its performance characteristics determined by the [facility] Department of Pathology and Laboratory Medicine. It has not been cleared or approved by the FDA. The [facility] Department of Pathology and Laboratory Medicine is regulated under CLIA as qualified to perform high-complexity testing. This test is used for clinical purposes. It should not be regarded as investigational or for research. Performed By: #### L [id number], HCOAG, 6303-2, 78560-9, 03721-7 ####[facility] LABCLIA [id number] [address] [address] [place] aPTT Coag (Bld) [Time] 36.5 s Normal 31.5-38.3 [facility] Comment on above: Order Comment: Speci men Type: BLOOD SPECIMENOrdering Facility: [facility] [place] Address: [address] [place] [address] Result Comment: This test was developed, and its performance characteristics determined by the [facility] Department of Pathology and Laboratory Medicine. It has not been cleared or approved by the FDA. The [facility] Pathology and Laboratory Medicine is regulated under CLIA as qualified to perform high-complexity testing. This test is used for clinical purposes. It should not be regarded as investigational or for research. Performed By: #### L [id number], HCOAG, 6303-2, 75470-2, ####[facility] LABCLIA [id number] [address] [address] [place] PLATELET NEUT 0.0 Seconds Normal <1.9 [facility] Comment on above: Order Comment: Speci men Type: BLOOD SPECIMENOrdering Facility: [facility] [place] Address: [address] [place] [address] Result Comment: This test was developed, and its performance characteristics determined by the [facility] Department of Pathology and Laboratory Medicine. It has not been cleared or approved by the FDA. The [facility] of Pathology and Laboratory Medicine is regulated under CLIA as qualified to perform high-complexity testing. This test is used for clinical purposes. It should not be regarded as investigational or for research. Performed By: #### L [id number], HCOAG, 6303-2, 46832-3, 47909-2 ####[facility] LABCLIA [id number] [address] [place] [address] [place] MANUAL DIFFERENTIAL, BODY FL UIDon 11-11-2024 DIF TTL, BODY FLUID 100 cells counted Normal [facility] Comment on above: Order Comment: Speci men Type: FLUID SPECIMENOrdering Facility: [facility] [place] Address: [address] [place] [address] Performed By: #### C CBF, [id number] ####[facility] LABCLIA [id number] [address] [place] [address] [place] LYMPH%, BF 37 % High 18-36 [facility] Comment on above: Order Comment: Speci men Type: FLUID SPECIMENOrdering Facility: [facility] [place] Address: [address] [place] [address] Performed By: #### C CBF, [id number] ####[facility] LABCLIA [id number] [address], [facility] [place] MACRO%, BF 21 % Low 64-80 [facility] Comment on above: Order Comment: Speci men Type: FLUID SPECIMENOrdering Facility: [facility] [place] Address: [address] [place] [address] Performed By: #### C CBF, [id number] ####[facility] LABCLIA [id number] [address] [place] [address] [place] MESO %, BF 12 % High 0-2 [facility] Comment on above: Order Comment: Speci men Type: FLUID SPECIMENOrdering Facility: [facility] [place] Address: [address] [place] [address] Performed By: #### C CBF, [id number] ####[facility] LABCLIA [id number] [address] [place] [address] [place] NEUT%, BF 26 % High 0-1 [facility] Comment on above: Order Comment: Speci men Type: FLUID SPECIMENOrdering Facility: [facility] [place] Address: [address] [place] [address] Performed By: #### C CBF, [id number] ####[facility] LABCLIA [id number] [place] [address] [place] REAC LYMPH %, BF 4 % Normal [facility] Comment on above: Order Comment: Speci men Type: FLUID SPECIMENOrdering Facility: [facility] [place] Address: [address] [place] [address] Performed By: #### C CBF, [id number] ####[facility] LABCLIA [id number] [place] [address] [place] MEDICAL EMERon 11-11-2024 MEDICAL KRISTINA Normal [facility] MEDICAL KRISTINA Normal [facility] Magnesium SerPl-mCncon 11-11 Magnesium [Mass/Vol] 2.3 mg/dL Normal 1.7-2.3 [facility] Comment on above: Order Comment: Speci men Type: BLOOD SPECIMENOrdering Facility: [facility] [place] Address: [address] [place] [address] Performed By: #### 2 276-4, 02828-6, 92649-1, 50546-2, 2777-1, 30282-1 ####[facility] LABCLIA [id number] [place] [address] [place] NURSING PROGon 11-11-2024 NURSING PROG Normal [facility] PLT DEP.AB, UNF. HEPARINon 0 11-11-2024 % REL HIGH DOSE HEP PORCINE 0 % Normal [facility] Comment on above: Order Comment: Speci men Type: BLOOD SPECIMENOrdering Facility: [facility] [place] Address: [address] [place] [address] Performed By: #### S RL ####[facility] [id number] [place] [address] % REL LOW DOSE HEP PORCINE 0 % Normal [facility] Comment on above: Order Comment: Speci men Type: BLOOD SPECIMENOrdering Facility: [facility] [place] Address: [address] [place] [address] Performed By: #### S ERORE ####[facility] CollibraIA [id number] [place] [address] SEROTONIN REL INTERP See Note Normal [facility] Comment on above: Order Comment: Speci men Type: BLOOD SPECIMENOrdering Facility: [facility] [place] Address: [address] [place] [address] Result Comment: This patient's specimen demonstrates a [...] Additionalinformation regarding diagnosis of HIT is available [employer].INTERPRETIVE INFORMATION: ABRAHAM, Unfractionated HeparinThis test was developed and its performance characteristicsdetermined by [employer]. It has not been cleared orapproved by the [place] Food and Drug Administration. This test wasperformed in a CLIA certified laboratory and is intended forclinical purposes.Performed By: [employer] [facility] [place], [place] [address]Blcazqvjzb Director: Lizandro Ordonez MD, PhDCLIA Number: [id number] Performed By: #### S ERORE ####[facility] LABORATORIESCLIA [id number] [place] [address] ABRAHAM, UNFRACTIONATED HEPARIN Negative Normal Negative [facility] Comment on above: Order Comment: Speci men Type: BLOOD SPECIMENOrdering Facility: [facility] [place] Address: [address] [place] [address] Performed By: #### S ERORE ####[facility] CollibraIA [id number] [place] [address] PROTHROMBIN GENE PCRon 11-11 PROTHROMBIN GENE MUTATION Normal [facility] Comment on above: Order Comment: Speci men Type: BLOOD SPECIMENOrdering Facility: [facility] [place] Address: [address] [place], [place] [address] Result Comment: Prot hrombin Gene MutationLaboratory Accession Number: [id number]:NORMALInterpretation:The DNA sample is negative for the c.*97G>A variant (legacy amxh40049S>A) in the 3' untranslated region of the Factor II (F2) gene.This result is not associated with an increased risk of thromboembolicdisease. Thromboembolic disease is a multifactorial disorder and othercauses are not excluded by this result.Methodology:Isolated Genomic DNA from the patient's blood specimen is evaluatedfor the c*97G>A ([id number]) variant of the F2 gene [RefSeqNM_000506.53;GRCh38/hg38] by multiplex polymerase chain reaction (PCR)followed by melting curve analysis.Limitations:This assay is designed to detect the c.*97G>A (45968N>A) variant inthe F2 gene. Uncommon variants or single nucleotide polymorphisms mayaffect binding of probes and may rarely result in false negative,false positive or indeterminate results. This assay does not detectother disease-associated rare variants in F2 or other causes ofthromboembolic disease.Disclaimer:This test was developed and its performance characteristics determinedby [facility]. Ithas not been cleared or approved by the FDA. [facility] is regulated under CLIAas certified to perform high-complexity testing. This test is used forclinical purposes. It should not be regarded as investigational or forresearch.Test performed at [facility], [address] [place], [place] [id number]. CLIA Number: [id number]:1) Inheritied Thrombophilias in . ACOG Practice Bulletin. No.197. [place] [employer]. ObseteGynecol 2018;132:e18-34.2) Elfego SR, Kinsey FR, Jeremy PH, and Bernice RIVERA. A commongenetic variation in the 3'-untranslated region of the prothrombingene is associated with elevated plasma prothrombin levels and anincrease in venous thrombosis. Blood 88:3698-703, 1995.3) Rica I, Justus V, Nayan Guillory, Emily Carmona. [id number]>T: 16 new cases, association with the 13432F>G polymorphism,and literature review. J Thromb Haemost. 2009;9:1585-7.Interpretation performed at remote location (R0A1) by Fifi España MD Performed By: #### P TGEN ####CLARITY ILLUMINA LIMSCLIA [id number] [place] [address] [place] PT panel Coag (PPP)on 2024 INR Coag (PPP) [Relative time] 2.3 {INR} High 0.9-1.3 [facility] Comment on above: Order Comment: Ezekiel ramirez Type: BLOOD SPECIMENOrdering Facility: [facility] [place] Address: [address] [place] [address] Result Comment: Sarah min K Antagonist (VKA) Therapeutic Range: INR 2 to 3 (Target INR of 2.5)Note: For patients treated with VKA drugs, such as warfarin, the [place] [employer] 2012 Guideline recommends [...] al. Chest 2012, 141:7S-47SNishbethel RA, et al. [facility] 2017, 70: 252-289 Performed By: #### P [facility], [address]-8 ####[facility] LABCLIA [id number] [address] [place] PT Coag (PPP) [Time] 23.1 s High 9.7-13.0 [facility] Comment on above: Order Comment: Spechelder ramirez Type: BLOOD SPECIMENOrdering Facility: [facility] [place] Address: [address] [place] [address] Performed By: #### P [facility], [address]-2 ####[facility] LABIA [id number] [address] [place] INR Coag (PPP) [Relative time] 2.1 {INR} High 0.9-1.3 [facility] Comment on above: Order Comment: Spechelder men Type: BLOOD SPECIMENOrdering Facility: [facility] [place] Address: [address] [place] [address] Result Comment: Sarah min K Antagonist (VKA) Therapeutic Range: INR 2 to 3 (Target INR of 2.5)Note: For patients treated with VKA drugs, such as warfarin, the [place] [employer] 2012 Guideline recommends [...] al. Chest 2012, 141:7S-47SHector RA, et al. [facility] 2017, 70: 252-289 Performed By: #### 3 4528-0 ####[facility] LABIA [id number] [place] [id number] [place] PT Coag (PPP) [Time] 22.0 s High 9.7-13.0 [facility] Comment on above: Order Comment: Ezekiel ramirez Type: BLOOD SPECIMENOrdering Facility: [facility] [place] Address: [address] [place] [address] Performed By: #### 3 4528-0 ####[facility] LABIA [id number] [place] [id number] [place] PTT, ANTICOAGULANT THERAPYon 11-11-2024 aPTT Coag (PPP) [Time] EXTREMELY ABNORMA L RESULT. No clot detected at 320 seconds. Refer to anticoagulation nomogram for further actions. Critically abnormal (none) [facility] Comment on above: Order Comment: Ezekiel ramirez Type: BLOOD SPECIMENOrdering Facility: [facility] [place] Address: [address] [place] [address] Result Comment: Resu lt rechecked.Sample checked for clot. Performed By: #### P TTA, 15141-2 ####[facility] LABCLIA [id number] [place] [address] [place] Phosphate [facility] 11-11 Phosphate [Mass/Vol] 2.6 mg/dL Low 2.7-4.8 [facility] Comment on above: Order Comment: Ezekiel raimrez Type: BLOOD SPECIMENOrdering Facility: [facility] [place] Address: [address] [place] [address] Performed By: #### 2 276-4, 50565-0, 18976-1, 65378-4, 2777-1, 08799-4 ####[facility] LABCLIA [id number] [place] [address] [place] Prot Fld-[facility] 11-11-2024 Protein (Body fld) [Mass/Vol] 0.2 g/dL Normal See Comment [facility] Comment on above: Order Comment: Ezekiel ramirez Type: FLUID SPECIMENOrdering Facility: [facility] [place] Address: [address] [place] [address] Result Comment: Sero us fluids: Effusions are [...] document C49A. PAULETTE Diaz: Clinical Laboratory Standards [place]: 2007. Performed By: #### 1 747-5, 1795-4, 47969-7, 2881-1 ####[facility] LABCLIA [id number] [address] [address] [place] Renal function 2000 panelon 11-11-2024 Albumin [Mass/Vol] 2.4 g/dL Low 3.9-4.9 [facility] Comment on above: Order Comment: Speci men Type: BLOOD SPECIMENOrdering Facility: [facility] [place] Address: [address] [place] [address] Performed By: #### 2 4362-6, 4542-7 ####[facility] LABCLIA [id number] [address] [address] [place] Anion gap [Moles/Vol] 10 mmol/L Normal 8-15 [facility] Comment on above: Order Comment: Speci men Type: BLOOD SPECIMENOrdering Facility: [facility] [place] Address: [address] [place] [address] Performed By: #### 2 4362-6, 4542-7 ####[facility] LABCLIA [id number] [address] [address] [place] Calcium [Mass/Vol] 9.3 mg/dL Normal 8.5-10.2 [facility] Comment on above: Order Comment: Speci men Type: BLOOD SPECIMENOrdering Facility: [facility] [place] Address: [address] [place] [address] Performed By: #### 2 4362-6, 4542-7 ####[facility] LABCLIA [id number] [address] [address] [place] Chloride [Moles/Vol] 100 mmol/L Normal 98-107 [facility] Comment on above: Order Comment: Speci men Type: BLOOD SPECIMENOrdering Facility: [facility] [place] Address: [address] [place] [address] Performed By: #### 2 4362-6, 4541-7 ####[facility] LABIA [id number] [address] [address] [place] CO2 [Moles/Vol] 13 mmol/L Low 22-30 [facility] Comment on above: Order Comment: Speci men Type: BLOOD SPECIMENOrdering Facility: [facility] [place] Address: [address] [place] [address] Performed By: #### 2 4362-6, 4541-7 ####[facility] [id number] [place] [address] [place] Creatinine [Mass/Vol] 1.26 mg/dL High 0.73-1.22 [facility] Comment on above: Order Comment: Speci men Type: BLOOD SPECIMENOrdering Facility: [facility] [place] Address: [address] [place] [address] Performed By: #### 2 4362-6, 4541-7 ####[facility] [id number] [address] [place] Creatinine and Glomerular filtration rate.predicted panel (S/P/Bld) 66 mL/min/1.73m??? Normal >=60 [facility] Comment on above: Order Comment: Speci men Type: BLOOD SPECIMENOrdering Facility: [facility] [place] Address: [address] [place] [address] Result Comment: Patric mated Glomerular Filtration Rate [...] reflect actual GFR. Performed By: #### 2 4362-, 7 ####[facility] LABCLIA [id number] [address] [address] [place] Glucose [Mass/Vol] 255 mg/dL High 74-99 [facility] Comment on above: Order Comment: Speci men Type: BLOOD SPECIMENOrdering Facility: [facility] [place] Address: [address] [place] [address] Result Comment: The [place] [employer] (ADA) provides guidance for cutoff [...] Standards of Medical Care in Diabetes 2016, [place] [employer]. Diabetes Care. 2016.39(Suppl 1). Performed By: #### 2 436-6, 7 ####[facility] LABIA [id number] [place] [id number] [place] Phosphate [Mass/Vol] 2.5 mg/dL Low 2.7-4.8 [facility] Comment on above: Order Comment: Speci men Type: BLOOD SPECIMENOrdering Facility: [facility] [place] Address: [address] [place] [address] Performed By: #### 2 436-6, 7 ####[facility] LABIA [id number] [place] [id number] [place] Potassium [Moles/Vol] 4.4 mmol/L Normal 3.7-5.1 [facility] Comment on above: Order Comment: Speci men Type: BLOOD SPECIMENOrdering Facility: [facility] [place] Address: [address] [place] [address] Performed By: #### 2 436-6, 454-7 ####[facility] LABIA [id number] [place] [id number] [place] Sodium [Moles/Vol] 123 mmol/L Low 136-144 [facility] Comment on above: Order Comment: Speci men Type: BLOOD SPECIMENOrdering Facility: [facility] [place] Address: [address] [place] [address] Performed By: #### 2 4362-6, 4547 ####[facility] [id number] [place] [address] [place] Urea nitrogen [Mass/Vol] 21 mg/dL Normal 9-24 [facility] Comment on above: Order Comment: Speci men Type: BLOOD SPECIMENOrdering Facility: [facility] [place] Address: [address] [place] [address] Performed By: #### 2 4362-6, 4547 ####[facility] [id number] [place] [address] [place] Retics #on 11-11-2024 Reticulocytes (Bld) [#/Vol] 0.97663 10*3/uL High 0.018-0.100 [facility] Comment on above: Order Comment: Speci men Type: BLOOD SPECIMENOrdering Facility: [facility] [place] Address: [address] [place] [address] Performed By: #### I PFR, 40046-9, 03533-7 ####[facility] [id number] [place] [address] [place] Reticulocytes (Bld) [#/Vol]o n 11-11-2024 Reticulocytes/100 RBC (Bld) 4.1 % High 0.4-2.0 [facility] Comment on above: Order Comment: Speci men Type: BLOOD SPECIMENOrdering Facility: [facility] [place] Address: [address] [place] [address] Performed By: #### I PFR, 06837-5, 56749-5 ####[facility] LABCLIA [id number] [place] [address] [place] SEPSIS LACTATEon 11-11-2024 Lactate [Moles/Vol] 3.4 mmol/L High <=2.0 [facility] Comment on above: Order Comment: Speci men Type: BLOOD SPECIMENOrdering Facility: [facility] [place] Address: [address] [place] [address] Performed By: #### S LACT ####[facility] LABCLIA [id number] [place] [address] [place] Lactate [Moles/Vol] 3.6 mmol/L High <=2.0 [facility] Comment on above: Order Comment: Speci men Type: BLOOD SPECIMENOrdering Facility: [facility] [place] Address: [address] [place] [address] Performed By: #### S LACT ####[facility] LABCLIA [id number] [place] [address] [place] Screen dRVVTon 11-11-2024 dRVVT Coag (PPP) [Time] 42.6 s Normal 32.0-45.7 C [facility] Comment on above: Order Comment: Speci men Type: BLOOD SPECIMENOrdering Facility: [facility] [place] Address: [address] [place] [address] Performed By: #### L [id number], HCOAG, 6303-2, 73131-3, 92163-6 ####[facility] LABIA [id number] [place] [address] [place] US ABD LIVER VASCULARon - US ABD LIVER VASCULAR Normal [facility] US DOPPLER COMPLETEon 2024 US DOPPLER COMPLETE Normal [facility] XR ABDOMEN 1V SUPINEon 11-11 XR ABDOMEN 1V SUPINE [facility] XR CHEST 1V FRONTAL PORTon 0 11-11-2024 XR CHEST 1V FRONTAL PORT Normal [facility] XR CHEST 1V FRONTAL PORT Normal [facility] aPTT PPPon 11-11-2024 aPTT Coag (PPP) [Time] 41.7 s High 23.0-32.4 [facility] Comment on above: Order Comment: Speci men Type: BLOOD SPECIMENOrdering Facility: [facility] [place] Address: [address] [place] [address] Performed By: #### 3 255-7, 13173-3 ####[facility] LABIA [id number] [place] [address] [place] dRVVT Coag (PPP) [Time]on dRVVT factor substitution immediately after 1:2 addition of normal plasma Coag (PPP) [Time] 35.4 seconds Normal 32.0-45.7 [facility] Comment on above: Order Comment: Speci men Type: BLOOD SPECIMENOrdering Facility: [facility] [place] Address: [address] [place] [address] Performed By: #### L [id number], HCOAG, 6303-2, 22598-3, 37282-5 ####[facility] LABIA [id number] [place] [address] [place] dRVVT/dRVVT.excess phospholipid Coag (PPP) [Ratio] 0.91 Normal <1.32 [facility] Comment on above: Order Comment: Speci men Type: BLOOD SPECIMENOrdering Facility: [facility] [place] Address: [address] [place] [address] Performed By: #### L [id number], HCOAG, 6303-2, 95103-7, 26150-4 ####[facility] LABIA [id number] [place] [address] [place] ALP [Catalytic activity/Vol] Ordered By: Kathie Lemos on 11-10-2024 Serum or plasma alkaline phosphatase measurement 310 U/L High 40-129 [facility] ALT [Catalytic activity/Vol] Ordered By: Kathie Lemos on 11-10-2024 Serum or plasma alanine aminotransferase (ALT) measurement 36 U/L <47 [facility] Absolute lymphocyte countOrd ered By: Kathie Lemos on 11-10-2024 Lymphocytes Auto (Unsp spec) [#/Vol] 1.30 10*3/uL 0.83-4.51 [facility] Absolute neutrophil countOrd ered By: Kathie Lemos on 11-10-2024 Absolute neutrophil count 16.2 X10^3/uL High 2.0-7.7 [facility] Albumin [Mass/Vol]Ordered By : Kathie Lemos on 11-10-2024 Serum or plasma albumin measurement (mass/volume) 2.3 g/dL Low 3.5-5.0 [facility] Albumin/Globulin [Mass ratio ]Ordered By: Kathie Lemos on 11-10-2024 Serum or plasma albumin/globulin mass ratio 0.7 RATIO Low 0.9-2.4 [facility] Anion gap [Moles/Vol]Ordered By: Kathie Lemos on 11-10-2024 Anion gap in Serum or Plasma 11 5-15 [facility] Anion gap in Serum or Plasma Ordered By: Kathie Lemos on 11-10-2024 Anion gap [Moles/Vol] 11 mmol/L 5-15 [facility] Automated lymphocyte count a s percentage of total leukocytesOrdered By: Kathie Lemos on 11-10-2024 Lymphocytes/100 WBC Auto (Unsp spec) 6.6 % Low 19-41 [facility] BUN/creatinine ratioOrdered By: Kathie Lemos on 11-10-2024 Urea nitrogen/Creatinine [Mass ratio] 16.6 mg/mg 10-20 [facility] BUN/creatinine ratio 16.6 RATIO 10-20 [facility] Bacteria LM.HPF (Urine sed) [#/Area]Ordered By: Kathie Lemos on 11-10-2024 Urine sediment bacteria count by microscopy (number/high power field) 2+ /hpf None Seen [facility] Basophil percentageOrdered B y: Kathie Lemos on 11-10-2024 Basophils/100 WBC (Bld) 0.5 % 0-1 [facility] Basophil percentage 0.5 % 0-1 [facility] Bilirubin Test strip Ql (U)O rdered By: Kathie Lemos on 11-10-2024 Bilirubin Ql (U) Negative Negative [facility] Urine total bilirubin detection by test strip Negative Negative [facility] Bilirubin, totalOrdered By: Kathie Lemos on 11-10-2024 Bilirubin [Mass/Vol] 2.09 mg/dL High 0.00-1.30 [facility] Bilirubin, total 2.09 mg/dL High 0.00-1.30 [facility] Calcium [Mass/Vol]Ordered By : Kathie Lemos on 11-10-2024 Serum or plasma calcium measurement (mass/volume) 9.2 mg/dL 7.6-11.0 [facility] Carbon dioxide, total [Moles /volume] in Central venous bloodOrdered By: Kathie Lemos on 11-10-2024 CO2 [Moles/Vol] 13.3 mmol/L Low 21.0-32.0 [facility] Carbon dioxide, total [Moles/volume] in Central venous blood 13.3 mmol/L Low 21.0-32.0 [facility] Chloride assayOrdered By: Paulette Lemos on 11-10-2024 Chloride [Moles/Vol] 99 mmol/L 98-108 [facility] Chloride assay 99 mmol/L 98-108 [facility] Clarity (U)Ordered By: Kathie Lemos on 11-10-2024 Urine clarity Turbid Clear [facility] Color (U)Ordered By: Kathie bhatt on 11-10-2024 Urine color determination Brown Yellow [facility] Creatinine [Mass/Vol]Ordered By: Kathie Lemos on 11-10-2024 Serum creatinine measurement (mass/volume) 1.13 mg/dL 0.70-1.20 [facility] Eosinophil percentageOrdered By: Kathie Lemos on 11-10-2024 Eosinophils/100 WBC (Bld) 1.9 % 0-5 [facility] Eosinophil percentage 1.9 % 0-5 [facility] Erythrocyte distribution wid th (RBC) [Ratio]Ordered By: Kathie Lemos on 11-10-2024 Erythrocyte distribution width ratio 18.1 % High 11.6-14.6 [facility] Erythrocyte distribution width standard deviation 62.1 fl High 35.1-43.9 [facility] Erythrocyte distribution wid th ratioOrdered By: Kathie Lemos on 11-10-2024 Erythrocyte distribution width (RBC) [Ratio] 18.1 % High 11.6-14.6 [facility] Erythrocyte distribution wid th standard deviationOrdered By: Kathie Lemos on 11-10-2024 Erythrocyte distribution width (RBC) [Ratio] 62.1 fl High 35.1-43.9 [facility] Estimation of creatinine carolina aranceOrdered By: Kathie Lemos on 11-10-2024 Estimation of creatinine clearance 88.23 ml/min 50-250 [facility] GFR/1.73 sq M.predicted niki g non-blacks MDRD (S/P/Bld) [Vol rate/Area]Ordered By: Kathie Lemos on 11-10-2024 Glomerular filtration rate (GFR) estimation/1.73 sq m using serum, plasma, or whole b 75 >60 [facility] Glomerular filtration rate ( GFR) estimation/1.73 sq m using serum, plasma, or whole bOrdered By: Kathie Lemos on 11-10-2024 GFR/1.73 sq M.predicted among non-blacks MDRD (S/P/Bld) [Vol rate/Area] 75 mL/min/{1.73_m2} >60 [facility] Glucose Ql (U)Ordered By: Paulette Lemos on 11-10-2024 Urine glucose detection Normal mg/dl Normal [facility] Glucose [Mass/Vol]Ordered By : Kathie Lemos on 11-10-2024 Serum glucose measurement (mass/volume) 298 mg/dL High 70-99 [facility] Glucose measurement at bedsi deOrdered By: Kathie Lemos on 11-10-2024 Glucose [Mass/Vol] 265 mg/dL High 74-106 [facility] Glucose measurement at bedside 265 mg/dL High 74-106 [facility] Hematocrit Auto (Bld) [Volum e fraction]Ordered By: Kathie Lemos on 11-10-2024 Hematocrit (Bld) [Volume fraction] 32.9 % Low 40-54 [facility] Automated blood hematocrit (percentage) 32.9 % Low 40-54 [facility] Hemoglobin measurementOrdere d By: Kathie Lemos on 11-10-2024 Hemoglobin (Bld) [Mass/Vol] 11.3 g/dL Low 13.0-16.5 [facility] Hemoglobin measurement 11.3 g/dL Low 13.0-16.5 [facility] Immature granulocytes/100 WB C Auto (Bld)Ordered By: Kathie Lemos on 11-10-2024 Immature granulocytes/100 WBC (Bld) 1.100 % High 0.0-0.9 [facility] Automated immature granulocyte percentage 1.100 % High 0.0-0.9 [facility] International normalized rat io (INR) calculationOrdered By: Kathie Lemos on 11-10-2024 International normalized ratio (INR) calculation 3.1 [facility] Ketones Test strip Ql (U)Ord ered By: Kathie Lemos on 11-10-2024 Ketones Ql (U) 5 mg/dl High Negative [facility] Urine ketones detection by test strip 5 mg/dl High Negative [facility] Leukocyte esterase Test stri p Ql (U)Ordered By: Kathie Lemos on 11-10-2024 Urine leukocyte esterase detection by dipstick 500 /ul High Negative [facility] Lymphocytes Auto (Unsp spec) [#/Vol]Ordered By: Kathie Lemos on 11-10-2024 Absolute lymphocyte count 1.30 X10^3/uL 0.83-4.51 [facility] Lymphocytes/100 WBC Auto (Un sp spec)Ordered By: Kathie Lemos on 11-10-2024 Automated lymphocyte count as percentage of total leukocytes 6.6 % Low 19-41 [facility] MCV (RBC) [Entitic vol]Order ed By: Kathie Lemos on 11-10-2024 MCV (mean corpuscular volume) determination 92.7 fL 80-94 [facility] MCV (mean corpuscular volume ) determinationOrdered By: Kathie Lemos on 11-10-2024 MCV (RBC) [Entitic vol] 92.7 fL 80-94 [facility] Mean corpuscular hemoglobin (MCH) determinationOrdered By: Kathie Lemos on 11-10-2024 MCH (RBC) [Entitic mass] 31.8 pg 27.0-32.0 [facility] Mean corpuscular hemoglobin (MCH) determination 31.8 pg 27.0-32.0 [facility] Mean corpuscular hemoglobin concentration (MCHC) determinationOrdered By: Kathie Lemos on 11-10-2024 Mean corpuscular hemoglobin concentration (MCHC) determination 34.3 g/dL 32-36 [facility] Mean platelet volume determi nationOrdered By: Kahtie Lemos on 11-10-2024 Mean platelet volume determination 12.2 fl High 6.2-12.0 [facility] Microscopic analysis of urin e for red blood cells (RBC)Ordered By: Kathie Lemos on 11-10-2024 Microscopic analysis of urine for red blood cells (RBC) > 100 SEEN /hpf 0-5 [facility] Monocyte percentageOrdered B y: Kathie Lemos on 11-10-2024 Monocytes/100 WBC (Bld) 6.9 % 0-10 [facility] Monocyte percentage 6.9 % 0-10 [facility] Mucus LM Ql (Urine sed)Order ed By: Kathie Lemos on 11-10-2024 Mucus Ql (Urine sed) 0 SEEN /hpf [facility] Neutrophil percentageOrdered By: Kathie Lemos on 11-10-2024 Neutrophils/100 WBC (Bld) 83.0 % High 47-70 [facility] Neutrophil percentage 83.0 % High 47-70 [facility] Nitrite Test strip Ql (U)Ord ered By: Kathie Lemos on 11-10-2024 Nitrite Ql (U) Positive High Negative [facility] Urine nitrite test by dipstick Positive High Negative [facility] No Panel InformationOrdered By: Kathie Lemos on 11-10-2024 58 U/L High <38 [facility] Nucleated red blood cell per centageOrdered By: Kathie Lemos on 11-10-2024 Nucleated red blood cell percentage 0 % 0-5 [facility] Platelet countOrdered By: Paulette Lemos on 11-10-2024 Platelets (Bld) [#/Vol] 58 10*3/uL Low 150-450 [facility] Platelet count 58 K/mm3 Low 150-450 [facility] Potassium (Unsp spec) [Mass/ Vol]Ordered By: Kathie Lemos on 11-10-2024 Potassium measurement (mass/volume) 3.6 mmol/L 3.3-5.1 [facility] Potassium measurement (mass/ volume)Ordered By: Kathie Lemos on 11-10-2024 Potassium (Unsp spec) [Mass/Vol] 3.6 mmol/L 3.3-5.1 [facility] Protein Test strip Ql (U)Ord ered By: Kathie Lemos on 11-10-2024 Protein Ql (U) 500 mg/dl High Negative [facility] Urine protein assay by test strip, semi-quantitative 500 mg/dl High Negative [facility] Prothrombin timeOrdered By: Kathie Lemos on 11-10-2024 PT Coag (PPP) [Time] 32.3 s High 11.7-14.9 [facility] Prothrombin time 32.3 SECONDS High 11.7-14.9 [facility] RBC Auto (Bld) [#/Vol]Ordere d By: Kathie Lemos on 11-10-2024 RBC (Bld) [#/Vol] 3.55 10*6/uL Low 4.6-6.2 [facility] Automated blood erythrocyte count 3.55 M/mm3 Low 4.6-6.2 [facility] Serum creatinine measurement (mass/volume)Ordered By: Kathie Lemos on 11-10-2024 Creatinine [Mass/Vol] 1.13 mg/dL 0.70-1.20 [facility] Serum globulin measurementOr dered By: Kathie Lemos on 11-10-2024 Globulin (S) [Mass/Vol] 3.4 g/dL 2.2-4.2 [facility] Serum globulin measurement 3.4 g/dL 2.2-4.2 [facility] Serum glucose measurement (m ass/volume)Ordered By: Kathie Lemos on 11-10-2024 Glucose [Mass/Vol] 298 mg/dL High 70-99 [facility] Serum or plasma alanine thomas otransferase (ALT) measurementOrdered By: Kathie Lemos on 11-10-2024 ALT [Catalytic activity/Vol] 36 U/L <47 [facility] Serum or plasma albumin roosevelt urement (mass/volume)Ordered By: Kathie Lemos on 11-10-2024 Albumin [Mass/Vol] 2.3 g/dL Low 3.5-5.0 [facility] Serum or plasma albumin/glob ulin mass ratioOrdered By: Kathie Lemos on 11-10-2024 Albumin/Globulin [Mass ratio] 0.7 {ratio} Low 0.9-2.4 [facility] Serum or plasma alkaline kendrick sphatase measurementOrdered By: Kathie Lemos on 11-10-2024 ALP [Catalytic activity/Vol] 310 U/L High 40-129 [facility] Serum or plasma calcium roosevelt urement (mass/volume)Ordered By: Kathie Lemos on 11-10-2024 Calcium [Mass/Vol] 9.2 mg/dL 7.6-11.0 [facility] Serum or plasma urea nitroge n measurement (mass/volume)Ordered By: Kathie Lemos on 11-10-2024 Urea nitrogen [Mass/Vol] 19 mg/dL - [facility] Sodium levelOrdered By: Javed Lemos on 11-10-2024 Sodium [Moles/Vol] 123 mmol/L Low 133-145 [facility] Sodium level 123 mmol/L Low 133-145 [facility] Specific gravity (U) [Rel de nsity]Ordered By: Kathie Lemos on 11-10-2024 Urine specific gravity measurement 1.015 1.002-1.030 [facility] Squamous epithelial cells de tection in urine sediment by light microscopyOrdered By: Kathie Lemos on 11-10-2024 Epithelial cells.squamous LM Ql (Urine sed) 0 SEEN /hpf 0-5 [facility] Squamous epithelial cells detection in urine sediment by light microscopy 0 SEEN /hpf [facility] Total proteinOrdered By: Tyree Lemos on 11-10-2024 Protein [Mass/Vol] 5.7 g/dL Low 5.9-8.4 [facility] Total protein 5.7 g/dL Low 5.9-8.4 [facility] Urea nitrogen [Mass/Vol]Orde red By: Kathie Lemos on 11-10-2024 Serum or plasma urea nitrogen measurement (mass/volume) 19 mg/dL - [facility] Urine blood detectionOrdered By: Kathie Lemos on 11-10-2024 Urine blood detection 250 /ul High Negative [facility] Urine clarityOrdered By: Tyree Lemos on 11-10-2024 Clarity (U) Turbid Clear [facility] Urine color determinationOrd ered By: Kathie Lemos on 11-10-2024 Color (U) Brown Yellow [facility] Urine glucose detectionOrder ed By: Kathie Lemos on 11-10-2024 Glucose Ql (U) Normal mg/dl Normal [facility] Urine leukocyte esterase det ection by dipstickOrdered By: Kathie Lemos on 11-10-2024 Leukocyte esterase Test strip Ql (U) 500 /ul High Negative [facility] Urine pHOrdered By: Kathie garcias on 11-10-2024 pH (U) 6.5 [pH] 5.0 - 8.0 [facility] Urine sediment bacteria coun t by microscopy (number/high power field)Ordered By: Kathie Lemos on 11-10-2024 Bacteria LM.HPF (Urine sed) [#/Area] 2 /[HPF] None Seen [facility] Urine specific gravity measu rementOrdered By: Kathie Lemos on 11-10-2024 Specific gravity (U) [Rel density] 1.015 1.002-1.030 [facility] Urine urobilinogen measureme ntOrdered By: Kathie Lemos on 11-10-2024 Urobilinogen Ql (U) 1 mg/dl High Normal [facility] Urobilinogen Ql (U)Ordered B y: Kathie Lemos on 11-10-2024 Urine urobilinogen measurement 1 mg/dl High Normal [facility] White blood cell (WBC) count Ordered By: Kathie Lemos on 11-10-2024 WBC (Bld) [#/Vol] 19.6 10*3/uL High 4.4-11.0 [facility] White blood cell (WBC) count 19.6 K/mm3 High 4.4-11.0 [facility] White blood cell countOrdere d By: Kathie Lemos on 11-10-2024 White blood cell count 5-10 SEEN /hpf 0-5 [facility] White blood cell count 5-10 SEEN /hpf 0-5 [facility] pH (U)Ordered By: Kathie aguilar on 11-10-2024 Urine pH 6.5 5.0 - 8.0 [facility] Blood manual differential co mment interpretation (narrative result)Ordered By: Kathie Lemos on 11-09-2024 Manual differential comment Marco Antonio (Bld) [Interp] SCANNED [facility] Lactic acid measurementOrder ed By: Kathie Lemos on 11-09-2024 Lactic acid measurement 2.4 mmol/L High 0.0-2.0 [facility] Manual differential comment Marco Antonio (Bld) [Interp]Ordered By: Kathie Lemos on 11-09-2024 Blood manual differential comment interpretation (narrative result) SCANNED [facility] Pathologist review Marco Antonio (Unsp spec) [Interp]Ordered By: Kathie Lemos on 11-09-2024 Review by pathologist N/A [facility] Platelet estimateOrdered By: Kathie Lemos on 11-09-2024 Platelets LM Ql (Bld) MKD DEC ADEQ [facility] Platelets LM Ql (Bld)Ordered By: Kathie Lemos on 11-09-2024 Platelet estimate MKD DEC ADEQ [facility] Review by pathologistOrdered By: Kathie Lemos on 11-09-2024 Pathologist review Marco Antonio (Unsp spec) [Interp] N/A [facility] Venous blood ammonia measure mentOrdered By: Kathie Lemos on 11-09-2024 Ammonia (P) [Moles/Vol] 104.0 umol/L High 16-60 [facility] Venous blood ammonia measurement 104.0 umol/L High 16-60 [facility] Lipase measurementOrdered By : Kathie Lemos on 11-08-2024 Lipase measurement 94 U/L High 13-75 [facility] Magnesium (Unsp spec) [Mass/ Vol]Ordered By: Kathie Lemos on 11-08-2024 Magnesium measurement (mass/volume) 2.4 mg/dL High 1.5-2.2 [facility] Magnesium measurement (mass/ volume)Ordered By: Kathie Lemos on 11-08-2024 Magnesium (Unsp spec) [Mass/Vol] 2.4 mg/dL High 1.5-2.2 [facility] Serum phosphorus measurement Ordered By: Kathie Lemos on 11-08-2024 Serum phosphorus measurement 1.6 mg/dL Low 2.7-4.5 [facility] Blood polychromasia detectio n by light microscopyOrdered By: Hill Acuña on 11-07-2024 Polychromasia LM Ql (Bld) 1+ [facility] Blood polychromasia detection by light microscopy 1+ [facility] Ovalocyte detectionOrdered B y: Hill Acuña on 11-07-2024 Ovalocytes LM Ql (Bld) 1+ [facility] Band form neutrophils/100 WB C (Bld)Ordered By: Hill Acñua on 11-03-2024 Blood band neutrophil count as percentage of total leukocytes 6 % High 0-5 [facility] Blood band neutrophil count as percentage of total leukocytesOrdered By: Hill Acuña on 11-03-2024 Band form neutrophils/100 WBC (Bld) 6 % High 0-5 [facility] Blood eosinophils/100 leukoc ytesOrdered By: Hill Acuña on 11-03-2024 Eosinophils/100 WBC (Bld) 1 % 0-5 [facility] Blood lymphocytes/100 leukoc ytesOrdered By: Hill Acuña on 11-03-2024 Lymphocytes/100 WBC (Bld) 2 % Low 19-41 [facility] Blood lymphocytes/100 leukocytes 2 % 0-10 [facility] Blood metamyelocytes/100 bri kocytesOrdered By: Hill Acuña on 11-03-2024 Metamyelocytes/100 WBC (Bld) 1 % 0-1 [facility] Blood metamyelocytes/100 leukocytes 1 % 0-5 [facility] Blood monocytes/100 leukocyt esOrdered By: Hill Acuña on 11-03-2024 Monocytes/100 WBC (Bld) 2 % 0-10 [facility] Blood segmented neutrophils/ 100 leukocytesOrdered By: Hill Acuña on 11-03-2024 Segmented neutrophils/100 WBC (Bld) 85 % High 47-70 [facility] Cells counted Molgen (Bld/Ti ss) [#]Ordered By: Hill Acuña on 11-03-2024 Total cell count 100 MANUAL DIFF [facility] Segmented neutrophils/100 WB C (Bld)Ordered By: Hill Acuña on 11-03-2024 Blood segmented neutrophils/100 leukocytes 85 % High 47-70 [facility] Total cell countOrdered By: Hill Acuña on 11-03-2024 Cells counted Molgen (Bld/Tiss) [#] 100 MANUAL DIFF [facility] Erythrocyte morphology asses smentOrdered By: Hill Acuña on 11-02-2024 RBC morphology finding Nom (Bld) NORM C+C NORMAL NORM C&C [facility] RBC morphology finding Nom ( Bld)Ordered By: Hill Acuña on 11-02-2024 Erythrocyte morphology assessment NORM C+C NORMAL NORM C&C [facility] Trough vancomycin levelOrder ed By: Buster Fuchs on 11-01-2024 Vancomycin trough [Mass/Vol] 17.7 ug/mL High 5.0-15.0 [facility] Vancomycin trough [Mass/Vol] Ordered By: Buster Fuchs on 11-01-2024 Trough vancomycin level 17.7 ug/mL High 5.0-15.0 [facility] Activated partial thrombopla stin time (aPTT) in platelet poor plasma by coagulation aOrdered By: Buster Fuchs on 10-31-2024 aPTT Coag (PPP) [Time] 42.7 s High 24.1-36.2 [facility] aPTT Coag (PPP) [Time]Ordere d By: Buster Fuchs on 10-31-2024 Activated partial thromboplastin time (aPTT) in platelet poor plasma by coagulation a 42.7 Seconds High 24.1-36.2 [facility] C. difficile Ql (Stl)Ordered By: Hill Wright on 10-30-2024 Stool Clostridium difficile detection Toxigenic C. difficile Abnormal [facility] Clostridium difficile detect ion by polymerase chain reactionOrdered By: Hill Wright on 10-30-2024 C. difficile DNA ANANTH+probe Ql (Unsp spec) [facility] Stool Clostridium difficile detectionOrdered By: Hill Wright on 10-30-2024 C. difficile Ql (Stl) Toxigenic C. difficile Abnormal [facility] Stool lactoferrin detection by immunoassayOrdered By: Hill Wright on 10-30-2024 Lactoferrin IA Ql (Stl) [facility] Arterial patency Wrist arter y --pre arterial punctureOrdered By: Buster Fuchs on 10-29-2024 Assessment of wrist artery patency prior to arterial puncture Positive [facility] Assessment of wrist artery p atency prior to arterial punctureOrdered By: Buster Fuchs on 10-29-2024 Arterial patency Wrist artery --pre arterial puncture Positive [facility] Base excess Calc (BldV) [Mol es/Vol]Ordered By: Buster Fuchs on 10-29-2024 Blood base excess determination -10 mmol/L [facility] -2-2 [facility] Blood base excess determinat ionOrdered By: Buster Fuchs on 10-29-2024 Base excess Calc (BldV) [Moles/Vol] -10 mmol/L Low -2-2 [facility] Blood bicarbonate measuremen tOrdered By: Buster Fuchs on 10-29-2024 HCO3 (Bld) [Moles/Vol] 15.2 mmol/L Low - [facility] Blood bicarbonate measurement 15.2 mmol/L Low - [facility] Blood cultureOrdered By: Hugo Wright on 10-29-2024 Bacteria identified Cx Nom (Bld) No growth in 5 days. [facility] Blood culture No growth in 5 days. [facility] Calculated very low density lipoprotein (VLDL) cholesterol measurementOrdered By: Hill Wright on 10-29-2024 Calculated very low density lipoprotein (VLDL) cholesterol measurement 17 mg/dL 5-40 [facility] Calculated very low density lipoprotein (VLDL) cholesterol measurement 17 mg/dL 5-40 [facility] Cholesterol [Mass/Vol]Ordere d By: Hill Wright on 10-29-2024 Serum or plasma cholesterol measurement (mass/volume) 132 mg/dL <201 [facility] Cholesterol in HDL [Mass/Vol ]Ordered By: Hill Wright on 10-29-2024 Serum or plasma cholesterol in HDL measurement (mass/volume) 33 mg/dL Low >40 [facility] Determination of fraction of inspired oxygenOrdered By: Buster Fuchs on 10-29-2024 Determination of fraction of inspired oxygen 21.0 [facility] Electrocardiogram reportOrde red By: Jeovanny Ramos on 10-29-2024 EKG study [facility] Other Phone: LDL calc ser/plasOrdered By: Hill Wright on 10-29-2024 Cholesterol in LDL [Mass/Vol] 83 mg/dL [facility] Measurement, pHOrdered By: Stacy Fuchs on 10-29-2024 pH (Unsp spec) 7.39 [pH] 7.35-7.45 [facility] No Panel InformationOrdered By: Buster Fuchs on 10-29-2024 ART [facility] L Radial [facility] Not entered [facility] Room Air [facility] No Panel InformationOrdered By: Hill Wright on 10-29-2024 10.20 ug/dL 6.02-18.40 [facility] Osmolality, serumOrdered By: Hill Wright on 10-29-2024 Osmolality, serum 292 mOsm/KG 275-295 [facility] Oxygen saturation measuremen tOrdered By: Buster Fuchs on 10-29-2024 Oxygen saturation measurement 93 % Low 95-99 [facility] Partial pressure of carbon d ioxide measurementOrdered By: Buster Fuchs on 10-29-2024 Partial pressure of carbon dioxide measurement 25.1 mmHg Low 35-45 [facility] Partial pressure of oxygen m easurementOrdered By: Buster Fuchs on 10-29-2024 Partial pressure of oxygen measurement 67 mmHG Low 75-100 [facility] Screening total cholesterol/ high density lipoprotein (HDL) cholesterol ratioOrdered By: Hill Wright on 10-29-2024 Screening total cholesterol/high density lipoprotein (HDL) cholesterol ratio 4.04 [facility] Serum or plasma cholesterol in HDL measurement (mass/volume)Ordered By: Hill Wright on 10-29-2024 Cholesterol in HDL [Mass/Vol] 33 mg/dL Low >40 [facility] Serum or plasma cholesterol measurement (mass/volume)Ordered By: Hill Wright on 10-29-2024 Cholesterol [Mass/Vol] 132 mg/dL <201 [facility] Total carbon dioxide measure mentOrdered By: Buster Fuchs on 10-29-2024 CO2 [Moles/Vol] 16 mmol/L [facility] Total carbon dioxide measurement 16 mmol/L [facility] Triglycerides measurementOrd ered By: Hill Wright on 10-29-2024 Triglycerides measurement 83 mg/dL [facility] Urine cultureOrdered By: Viraj Dunn on 10-29-2024 Bacteria identified Cx Nom (U) Culture exhibits no growth. [facility] Urine culture Culture exhibits no growth. [facility] pH (Unsp spec)Ordered By: Marianna Fuchs on 10-29-2024 Measurement, pH 7.39 7.35-7.45 [facility] Absolute neutrophil countOrd ered By: Alber Dunn on 10-28-2024 Neutrophils (Bld) [#/Vol] 19.0 10*3/uL High 2.0-7.7 [facility] Amorphous sediment LM Ql (Ur ine sed)Ordered By: Alber Dunn on 10-28-2024 Amorphous sediment detection in urine sediment by light microscopy 1+ URATE [facility] Amorphous sediment detection in urine sediment by light microscopyOrdered By: Alber Dunn on 10-28-2024 Amorphous sediment LM Ql (Urine sed) 1+ URATE [facility] Anion gap in Serum or Plasma Ordered By: Alber Dunn on 10-28-2024 Anion gap [Moles/Vol] 17 mmol/L High 5-15 [facility] BUN/creatinine ratioOrdered By: Alber Dunn on 10-28-2024 Urea nitrogen/Creatinine [Mass ratio] 18.8 mg/mg 10-20 [facility] Basophil percentageOrdered B y: Alber Dunn on 10-28-2024 Basophils/100 WBC (Bld) 0.2 % 0-1 [facility] Bilirubin Test strip Ql (U)O rdered By: Alber Dunn on 10-28-2024 Bilirubin Ql (U) 1 mg/dL High Negative [facility] Comment on above: COLOR OF URINE MAY A FFECT DIPSTICK RESULTS. Bilirubin, totalOrdered By: Alber Dunn on 10-28-2024 Bilirubin [Mass/Vol] 1.86 mg/dL High 0.00-1.30 [facility] Carbon dioxide, total [Moles /volume] in Central venous bloodOrdered By: Alber Dunn on 10-28-2024 CO2 [Moles/Vol] 12.4 mmol/L Low 21.0-32.0 [facility] Chloride assayOrdered By: Hernesto Dunn on 10-28-2024 Chloride [Moles/Vol] 98 mmol/L 98-108 [facility] Eosinophil percentageOrdered By: Alber Dunn on 10-28-2024 Eosinophils/100 WBC (Bld) 1.4 % 0-5 [facility] Epithelial cells.squamous LM Ql (Urine sed)Ordered By: Alber Dunn on 10-28-2024 Epithelial cells.squamous LM.HPF (Urine sed) [#/Area] 5 /[HPF] 0-5 [facility] Erythrocyte distribution wid th ratioOrdered By: Alber Dunn on 10-28-2024 Erythrocyte distribution width (RBC) [Ratio] 19.1 % High 11.6-14.6 [facility] Erythrocyte distribution wid th standard deviationOrdered By: Alber Dunn on 10-28-2024 Erythrocyte distribution width (RBC) [Entitic vol] 62.7 fL High 35.1-43.9 [facility] GFR/1.73 sq M.predicted niki g non-blacks MDRD (S/P/Bld) [Vol rate/Area]Ordered By: Alber Dunn on 10-28-2024 Estimated GFR (MDRD) Non-Af Amer 62 >60 [facility] Comment on above: mL/min/1.73m2 CKD-EP I Creatinine Equation (2020) Glucose Ql (U)Ordered By: Hernesto Dunn on 10-28-2024 Glucose (U) [Mass/Vol] 50 mg/dL High Normal [facility] HbA1c (Bld) [Mass fraction]O rdered By: Hill Wright on 10-28-2024 Hemoglobin A1c percentage 6.7 % >5.7 [facility] Hematocrit Auto (Bld) [Volum e fraction]Ordered By: Alber Dunn on 10-28-2024 Hematocrit (Bld) [Volume fraction] 37.3 % Low 40-54 [facility] Hemoglobin A1c percentageOrd ered By: Hill Wright on 10-28-2024 HbA1c (Bld) [Mass fraction] 6.7 % >5.7 [facility] Hemoglobin measurementOrdere d By: Alber Dunn on 10-28-2024 Hemoglobin (Bld) [Mass/Vol] 12.7 g/dL Low 13.0-16.5 [facility] Immature granulocytes/100 WB C Auto (Bld)Ordered By: Alber Dunn on 10-28-2024 Immature granulocytes/100 WBC (Bld) 1.400 % High 0.0-0.9 [facility] Comment on above: IG% - Immature Granu locytes (promyelocytes, myelocytes and metamyelocytes) > 1% indicates that a LEFT SHIFT is Present. Ketones Test strip Ql (U)Ord ered By: Alber Dunn on 10-28-2024 Ketones Ql (U) 5 mg/dl High Negative [facility] Laboratory - Chemistry and C hemistry - challengeOrdered By: Alber Dunn on 10-28-2024 AST [Catalytic activity/Vol] 48 U/L High <38 [facility] Comment on above: Hemolysis present, R esults could be affected. Laboratory - Hematology and Cell countsOrdered By: Alber Dunn on 10-28-2024 Anisocytosis Ql (Bld) RARE [facility] Lactic acid measurementOrder ed By: Alber Dunn on 10-28-2024 Lactate [Moles/Vol] 4.0 mmol/L High 0.0-2.0 [facility] Comment on above: Critical Result(s) C [...] 10-28-2024 Lipase [Catalytic activity/Vol] 45 U/L 13-75 [facility] Comment on above: Please note:LIPASE r evised reference range effective 22. New Lipase methodology. Expected to produce lower values than the previous assay method. NEW Reference Range: 13 - 75 U/L Lymphocytes Auto (Unsp spec) [#/Vol]Ordered By: Alber Dunn on 10-28-2024 Lymphocytes (Bld) [#/Vol] 1.28 10*3/uL 0.83-4.51 [facility] Lymphocytes/100 WBC Auto (Un sp spec)Ordered By: Alber Dunn on 10-28-2024 Lymphocytes/100 WBC (Bld) 5.6 % Low 19-41 [facility] MCV (mean corpuscular volume ) determinationOrdered By: Alber Dunn on 10-28-2024 MCV (RBC) [Entitic vol] 91.2 fL 80-94 [facility] Macrocytes Ql (Bld)Ordered B y: Alber Dunn on 10-28-2024 Macrocytosis RARE [facility] Macrocytes detection RARE [facility] Macrocytes detectionOrdered By: Alber Dunn on 10-28-2024 Macrocytes Ql (Bld) RARE [facility] Manual differential comment Marco Antonio (Bld) [Interp]Ordered By: Alber Dunn on 10-28-2024 Differential Comment SEE COMMENT [facility] Comment on above: MONOCYTOSIS NOTED Mean corpuscular hemoglobin (MCH) determinationOrdered By: Alber Dunn on 10-28-2024 MCH (RBC) [Entitic mass] 31.1 pg 27.0-32.0 [facility] Mean corpuscular hemoglobin concentration (MCHC) determinationOrdered By: Alber Dunn on 10-28-2024 MCHC (RBC) [Mass/Vol] 34.0 g/dL 32-36 [facility] Mean platelet volume determi nationOrdered By: Alber Dunn on 10-28-2024 Platelet mean volume (Bld) [Entitic vol] 12.0 fL 6.2-12.0 [facility] Microscopic analysis of urin e for red blood cells (RBC)Ordered By: Alber Dunn on 10-28-2024 Urine RBC > 100 SEEN /hpf 0-5 [facility] Monocyte percentageOrdered B y: Alber Dunn on 10-28-2024 Monocytes/100 WBC (Bld) 8.4 % 0-10 [facility] Mucus LM Ql (Urine sed)Order ed By: Alber Dunn on 10-28-2024 Mucus Ql (Urine sed) 0 SEEN /hpf [facility] Neutrophil percentageOrdered By: Alber Dunn on 10-28-2024 Neutrophils/100 WBC (Bld) 83.0 % High 47-70 [facility] Nitrite Test strip Ql (U)Ord ered By: Alber Dunn on 10-28-2024 Nitrite Ql (U) Negative Negative [facility] Nucleated red blood cell per centageOrdered By: Alber Dunn on 10-28-2024 Nucleated RBC/100 WBC (Bld) [Ratio] 0 % 0-5 [facility] Osmolality (U) [Osmolality]O rdered By: Hill Wright on 10-28-2024 Osmolality ur 484 mOsm/KG >50 [facility] Osmolality urOrdered By: Hugo Wright on 10-28-2024 Osmolality (U) [Osmolality] 484 mOsm/KG >50 [facility] Ovalocytes LM Ql (Bld)Ordere d By: Alber Dunn on 10-28-2024 Ovalocytes RARE [facility] Pathologist review Marco Antonio (Unsp spec) [Interp]Ordered By: Alber Dunn on 10-28-2024 Differential Pathologist's Review May foll [facility] Platelet countOrdered By: Hernesto Dunn on 10-28-2024 Platelets (Bld) [#/Vol] 142 10*3/uL Low 150-450 [facility] Platelets LM Ql (Bld)Ordered By: Alber Dunn on 10-28-2024 Platelet Estimate ADEQUATE ADEQ [facility] Potassium (Unsp spec) [Mass/ Vol]Ordered By: Alber Dunn on 10-28-2024 Potassium [Moles/Vol] 4.5 mmol/L 3.3-5.1 [facility] Comment on above: Hemolysis present, R esults could be affected. Protein Test strip Ql (U)Ord ered By: Alber Dunn on 10-28-2024 Protein Ql (U) 500 mg/dl High Negative [facility] RBC Auto (Bld) [#/Vol]Ordere d By: Alber Dunn on 10-28-2024 RBC (Bld) [#/Vol] 4.09 10*6/uL Low 4.6-6.2 [facility] RBC morphology finding Nom ( Bld)Ordered By: Alber Dunn on 10-28-2024 Red Blood Cell Morphology N CHROM NORMAL NORM C&C [facility] Serum creatinine measurement (mass/volume)Ordered By: Alber Dunn on 10-28-2024 Creatinine [Mass/Vol] 1.33 mg/dL High 0.70-1.20 [facility] Serum globulin measurementOr dered By: Alber Dunn on 10-28-2024 Globulin (S) [Mass/Vol] 3.4 g/dL 2.2-4.2 [facility] Serum glucose measurement (m ass/volume)Ordered By: Alber Dunn on 10-28-2024 Glucose [Mass/Vol] 338 mg/dL High 70-99 [facility] Serum or plasma alanine thomas otransferase (ALT) measurementOrdered By: Alber Dunn on 10-28-2024 ALT [Catalytic activity/Vol] 23 U/L <47 [facility] Serum or plasma albumin roosevelt urement (mass/volume)Ordered By: Alber Dunn on 10-28-2024 Albumin [Mass/Vol] 2.5 g/dL Low 3.5-5.0 [facility] Serum or plasma albumin/glob ulin mass ratioOrdered By: Alber Dunn on 10-28-2024 Albumin/Globulin [Mass ratio] 0.7 {ratio} Low 0.9-2.4 [facility] Serum or plasma alkaline kendrick sphatase measurementOrdered By: Alber Dunn on 10-28-2024 ALP [Catalytic activity/Vol] 274 U/L High 40-129 [facility] Serum or plasma calcium roosevelt urement (mass/volume)Ordered By: Alber Dunn on 10-28-2024 Calcium [Mass/Vol] 9.2 mg/dL 7.6-11.0 [facility] Serum or plasma urea nitroge n measurement (mass/volume)Ordered By: Alber Dunn on 10-28-2024 Urea nitrogen [Mass/Vol] 25 mg/dL High 4-19 [facility] Sodium levelOrdered By: Alber Dunn on 10-28-2024 Sodium [Moles/Vol] 128 mmol/L Low 133-145 [facility] Total proteinOrdered By: Viraj Dunn on 10-28-2024 Protein [Mass/Vol] 5.9 g/dL 5.9-8.4 [facility] Urine blood detectionOrdered By: Alber Dunn on 10-28-2024 Urine Occult Blood 250 /ul High Negative [facility] Urine clarityOrdered By: Viraj Dunn on 10-28-2024 Clarity (U) Cloudy Clear [facility] Urine color determinationOrd ered By: Alber Dunn on 10-28-2024 Color (U) Red Yellow [facility] Urine leukocyte esterase det ection by dipstickOrdered By: Alber Dunn on 10-28-2024 Leukocyte esterase Test strip Ql (U) 500 /ul High Negative [facility] Urine pHOrdered By: Alber grajeda on 10-28-2024 pH (U) 6.5 [pH] 5.0 - 8.0 [facility] Urine sediment bacteria coun t by microscopy (number/high power field)Ordered By: Alber Dunn on 10-28-2024 Bacteria LM.HPF (Urine sed) [#/Area] 1 /[HPF] None Seen [facility] Urine specific gravity measu rementOrdered By: Alber Dunn on 10-28-2024 Specific gravity (U) [Rel density] 1.015 1.002-1.030 [facility] Urobilinogen Ql (U)Ordered B y: Alber Dunn on 10-28-2024 Urine Urobilinogen Normal mg/dl Normal [facility] White blood cell (WBC) count Ordered By: Alber Dunn on 10-28-2024 WBC (Bld) [#/Vol] 22.9 10*3/uL High 4.4-11.0 [facility] White blood cell countOrdere d By: Alber Dunn on 10-28-2024 Urine WBC >100 SEEN /hpf 0-5 [facility] APTTon 10-04-2024 aPTT Coag (PPP) [Time] 40 s High [facility] Albuminon 10-04-2024 Albumin (Body fld) [Mass/Vol] <0.5 Normal Not established [facility] Comment on above: Order Comment: Venip uncture immediately after or during the administration of Metamizole may lead to falsely low results. Testing should be performed immediately prior to Metamizole dosing. Performed By: #### 2 524-7 #### GOMES ALYSSA ([id number]) [facility] ([facility]) [address] [place] [address] Bacteria identifiedon 2024 Bacteria identified Cx Nom (Body fld) Test: Sterile Fluid Culture/Smear Specimen Source: Pleural Specimen Type: Fluid Specimen Date: 10/04/20241713 Result Date: 10/08/2024824 Result Status: Final result Resulting Lab: [facility] [id number] [place] [address] CULTURE No growth aerobically and anaerobically STAIN (1+) Rare Polymorphonuclear leukocytes No organisms seen Normal [facility] Comment on above: Performed By: #### 2 524-7 #### MIREYA SHAH ([id number]) [facility] ([facility]) [facility] [place] [address] Basic metabolic 2000 panelon 10-04-2024 Anion gap [Moles/Vol] 8 mmol/L Low 10 - 2 0 mmol/L [facility] Calcium [Mass/Vol] 8.1 mg/dL Low 8.6 - 10. 3 mg/dL [facility] Chloride [Moles/Vol] 109 mmol/L High 98 - 10 7 mmol/L [facility] CO2 [Moles/Vol] 24 mmol/L 21 - 32 mmol/L [facility] Creatinine [Mass/Vol] 0.73 mg/dL 0.50 - 1.30 mg/dL [facility] eGFR - PINF [facility] Comment on above: Calculations of patric mated GFR are performed using the 2020 CKD-EPI Study Refit equation without the race variable for the IDMS-Traceable creatinine methods. https://jasn.asnjournals.org/content/early//ASN.2020 133736 Glucose [Mass/Vol] 197 mg/dL High 74 - 99 mg/dL [facility] Potassium [Moles/Vol] 3.9 mmol/L 3.5 - 5.3 mmol/L [facility] Sodium [Moles/Vol] 137 mmol/L 136 - 145 mmol/L [facility] Urea nitrogen [Mass/Vol] 17 mg/dL 6 - 23 mg/dL [facility] Anion gap [Moles/Vol] 8 mmol/L Low 10-20 [facility] Comment on above: Performed By: #### 2 4321-2 #### MIREYA SHAH ([id number]) [facility] ([facility]) [address] [place] [address] Calcium [Mass/Vol] 8.1 mg/dL Low 8.6-10.3 [facility] Comment on above: Performed By: #### 2 4321-2 #### MIREYA SHAH ([id number]) [facility] ([facility]) [address] [place] [address] Chloride [Moles/Vol] 109 mmol/L High 98-107 [facility] Comment on above: Performed By: #### 2 4321-2 #### MIREYA SHAH ([id number]) [facility] ([facility]) [address] [place] [address] CO2 [Moles/Vol] 24 mmol/L Normal 21-32 [facility] Comment on above: Performed By: #### 2 4321-2 #### MIREYA SHAH ([id number]) [facility] ([facility]) [address] [place] [address] 58277 Creatinine [Mass/Vol] 0.73 mg/dL Normal 0.50-1.30 [facility] Comment on above: Performed By: #### 2 4321-2 #### MIREYA SHAH ([id number]) [facility] ([facility]) [address] [place] [address] 32858 GFR/1.73 sq M.predicted MDRD (S/P/Bld) [Vol rate/Area] mL/min/{1.73_m2} Normal >60 [facility] Comment on above: Result Comment: Calc ulations of estimated GFR are performed using the 2020 CKD-EPI Study Refit equation without the race variable for the IDMS-Traceable creatinine methods. https://jasn.asnjournals.org/content//ASN.2020 097004 Performed By: #### 2 4321-2 #### MIREYA SHAH ([id number]) [facility] ([facility]) [facility] [place] [address] Glucose [Mass/Vol] 197 mg/dL High 74-99 [facility] Comment on above: Performed By: #### 2 4321-2 #### MIREYA SHAH ([id number]) [facility] ([facility]) [facility] [place] [address] Potassium [Moles/Vol] 3.9 mmol/L Normal 3.5-5.3 [facility] Comment on above: Performed By: #### 2 4321-2 #### MIREYA SHAH ([id number]) [facility] ([facility]) [facility] [place] [id number] Sodium [Moles/Vol] 137 mmol/L Normal 136-145 [facility] Comment on above: Performed By: #### 2 4321-2 #### MIREYA SHAH ([id number]) [facility] ([facility]) [address] [place], [place] [address] Urea nitrogen [Mass/Vol] 17 mg/dL Normal 6-23 [facility] Comment on above: Performed By: #### 2 4321-2 #### MIREYA SHAH ([id number]) [facility] ([facility]) [address] [place] [address] CBC W Auto Differential pane l (Bld)on 10-04-2024 Basophils (Bld) [#/Vol] 0.02 10*3/uL [facility] Basophils/100 WBC (Bld) 0.4 % 0.0 - 2.0 % [facility] Eosinophils (Bld) [#/Vol] 0.15 10*3/uL [facility] Eosinophils/100 WBC (Bld) 2.7 % 0.0 - 6.0 % [facility] Erythrocyte distribution width (RBC) [Ratio] 22.1 % High 11.5 - 14.5 % [facility] Hematocrit (Bld) [Volume fraction] 29.8 % Low 41.0 - 52.0 % [facility] Hemoglobin (Bld) [Mass/Vol] 9.3 g/dL Low 13.5 - 17.5 g/dL [facility] Immature granulocytes (Bld) [#/Vol] 0.01 10*3/uL [facility] Immature granulocytes/100 WBC (Bld) 0.2 % 0.0 - 0.9 % [facility] Comment on above: Immature Granulocyte Count (IG) includes promyelocytes, myelocytes and metamyelocytes but does not include bands. Percent differential counts (%) should be interpreted in the context of the absolute cell counts (cells/UL). Interpretation and review of laboratory results Abnormal [facility] Lymphocytes (Bld) [#/Vol] 0.64 10*3/uL Low [facility] Lymphocytes/100 WBC (Bld) 11.5 % 13.0 - 44.0 % [facility] MCH (RBC) [Entitic mass] 30 pg 26.0 - 34.0 pg [facility] MCHC (RBC) [Mass/Vol] 31.2 g/dL Low 32.0 - 36.0 g/dL [facility] MCV (RBC) [Entitic vol] 96 fL 80 - 100 fL [facility] Monocytes (Bld) [#/Vol] 0.46 10*3/uL [facility] Monocytes/100 WBC (Bld) 8.3 % 2.0 - 10.0 % [facility] Neutrophils (Bld) [#/Vol] 4.28 10*3/uL [facility] Comment on above: Percent differential counts (%) should be interpreted in the context of the absolute cell counts (cells/uL). Neutrophils/100 WBC (Bld) 76.9 % 40.0 - 80.0 % [facility] Nucleated RBC/100 WBC (Bld) [Ratio] 0 % [facility] Platelets (Bld) [#/Vol] 65 10*3/uL Low [facility] RBC (Bld) [#/Vol] 3.1 10*6/uL Low [facility] WBC (Bld) [#/Vol] 5.6 10*3/uL [facility] Basophils (Bld) [#/Vol] 0.02 x10*3/uL Normal 0.00-0.10 [facility] Comment on above: Performed By: #### 5 7021-8 #### MIREYA SHAH ([id number]) [facility] ([facility]) [address] [place] [address] 13054 Basophils/100 WBC (Bld) 0.4 % Normal 0.0-2.0 [facility] Comment on above: Performed By: #### 5 7021-8 #### MIREYA SHAH ([id number]) [facility] ([facility]) [address] [place] [address] 41205 Eosinophils (Bld) [#/Vol] 0.15 x10*3/uL Normal 0.00-0.70 [facility] Comment on above: Performed By: #### 5 7021-8 #### MIREYA SHAH ([id number]) [facility] ([facility]) [address] [place] [address] 77646 Eosinophils/100 WBC (Bld) 2.7 % Normal 0.0-6.0 [facility] Comment on above: Performed By: #### 5 7021-8 #### MIREYA SHAH ([id number]) [facility] ([facility]) [address] [place] [address] 69318 Erythrocyte distribution width (RBC) [Ratio] 22.1 % High 11.5-14.5 [facility] Comment on above: Performed By: #### 5 7021-8 #### MIREYA SHAH ([id number]) [facility] ([facility]) [address] [place] [address] Hematocrit (Bld) [Volume fraction] 29.8 % Low 41.0-52.0 [facility] Comment on above: Performed By: #### 5 7021-8 #### MIREYA SHAH ([id number]) [facility] ([facility]) [address] [place] [address] 17570 Hemoglobin (Bld) [Mass/Vol] 9.3 g/dL Low 13.5-17.5 [facility] Comment on above: Performed By: #### 5 7021-8 #### MIREYA SHAH ([id number]) [facility] ([facility]) [address] [place] [address] 92800 Immature granulocytes (Bld) [#/Vol] 0.01 x10*3/uL Normal 0.00-0.70 [facility] Comment on above: Performed By: #### 5 7021-8 #### MIREYA SHAH ([id number]) [facility] ([facility]) [address] [place] [address] 24016 Immature granulocytes/100 WBC (Bld) 0.2 % Normal 0.0-0.9 [facility] Comment on above: Result Comment: Danielle ture Granulocyte Count (IG) includes promyelocytes, myelocytes and metamyelocytes but does not include bands. Percent differential counts (%) should be interpreted in the context of the absolute cell counts (cells/UL). Performed By: #### 5 7021-8 #### MIREYA SHAH ([id number]) [facility] ([facility]) [address] [place] [address] Lymphocytes (Bld) [#/Vol] 0.64 x10*3/uL Low 1.20-4.80 [facility] Comment on above: Performed By: #### 5 7021-8 #### MIREYA SHAH ([id number]) [facility] ([facility]) [address] [place] [address] Lymphocytes/100 WBC (Bld) 11.5 % Normal 13.0-44.0 [facility] Comment on above: Performed By: #### 5 7021-8 #### MIREYA SHAH ([id number]) [facility] ([facility]) [address] [place] [address] 08442 MCH (RBC) [Entitic mass] 30.0 pg Normal 26.0-34.0 [facility] Comment on above: Performed By: #### 5 7021-8 #### MIREYA SHAH ([id number]) [facility] ([facility]) [address] [place] [address] 74610 MCHC (RBC) [Mass/Vol] 31.2 g/dL Low 32.0-36.0 [facility] Comment on above: Performed By: #### 5 7021-8 #### MIREYA SHAH ([id number]) [facility] ([facility]) [address] [place] [address] 15174 MCV (RBC) [Entitic vol] 96 fL Normal 80-100 [facility] Comment on above: Performed By: #### 5 7021-8 #### MIREYA SHAH ([id number]) [facility] ([facility]) [address] [place] [address] 77538 Monocytes (Bld) [#/Vol] 0.46 x10*3/uL Normal 0.10-1.00 [facility] Comment on above: Performed By: #### 5 7021-8 #### MIREYA SHAH ([id number]) [facility] ([facility]) [facility] [place] [address] Monocytes/100 WBC (Bld) 8.3 % Normal 2.0-10.0 [facility] Comment on above: Performed By: #### 5 7021-8 #### MIREYA SHAH ([id number]) [facility] ([facility]) [address] [place] [address] 20121 Neutrophils (Bld) [#/Vol] 4.28 x10*3/uL Normal 1.20-7.70 [facility] Comment on above: Result Comment: Perc ent differential counts (%) should be interpreted in the context of the absolute cell counts (cells/uL). Performed By: #### 5 7021-8 #### MIREYA SHAH ([id number]) [facility] ([facility]) [address] [place] [address] 26321 Neutrophils/100 WBC (Bld) 76.9 % Normal 40.0-80.0 [facility] Comment on above: Performed By: #### 5 7021-8 #### MIREYA SHAH ([id number]) [facility] ([facility]) [address] [place] [address] 85640 Nucleated RBC/100 WBC (Bld) [Ratio] 0.0 /100 WBCs Normal 0.0-0.0 [facility] Comment on above: Performed By: #### 5 7021-8 #### MIREYA SHAH ([id number]) [facility] ([facility]) [address] [place] [address] 31678 Platelets (Bld) [#/Vol] 65 x10*3/uL Low 150-450 [facility] Comment on above: Performed By: #### 5 7021-8 #### MIREYA SHAH ([id number]) [facility] ([facility]) [address] [place] [address] 99163 RBC (Bld) [#/Vol] 3.10 x10*6/uL Low 4.50-5.90 [facility] Comment on above: Performed By: #### 5 7021-8 #### MIREYA PARNELLASAD ([id number]) [facility] ([facility]) [address] [place] [address] WBC (Bld) [#/Vol] 5.6 x10*3/uL Normal 4.4-11.3 [facility] Comment on above: Performed By: #### 5 7021-8 #### MIREYA DELEONMIKE ([id number]) [facility] ([facility]) [facility] [place] [address] CT ABDOMEN PELVIS W IV CONTR [place] 10-04-2024 CT ABDOMEN PELVIS W IV CONTRAST Interpreted By: Yohana Huang, STUDY: CT ABDOMEN PELVIS W IV CONTRAST; 10/04/2024 2:16 pm INDICATION: Signs/Symptoms:generaliz ed abdominal pain, hx of cirrhosis, recent paracentesis. COMPARISON: None. ACCESSION NUMBER(S): [id number] ORDERING CLINICIAN: SRIRAM OLEARY TECHNIQUE: CT of [...] Yohana Huang 10/04/2024 2:28 PM Dictation workstation: [id number] [facility] CT Abdomen and Pelvis W cont rast Jamari 10-04-2024 Coronary artery calcifications. Anasarca. Ascites. Small irregular liver consistent with cirrhosis. Extensive collateral vessels. Enlarged spleen. Ventral and inguinal hernias containing ascitic fluid. MACRO: none Signed by: Yohana Huang 10/04/2024 2:28 PM Dictation workstation: [id number] Interpreted By: Yohana Chen, STUDY: CT ABDOMEN PELVIS W IV CONTRAST; 10/04/2024 2:16 pm INDICATION: Signs/Symptoms:generaliz ed abdominal pain, hx of cirrhosis, recent paracentesis. COMPARISON: None. ACCESSION NUMBER(S): [id number] ORDERING CLINICIAN: SRIRAM OLEARY TECHNIQUE: CT of [...] cirrhosis, recent paracentesis. COMPARISON: None. ACCESSION NUMBER(S): [id number] ORDERING CLINICIAN: SRIRAM OLEARY TECHNIQUE: CT of [...] Yohana Huang 10/04/2024 2:28 PM Dictation workstation: [id number] [facility] Work Phone: Radiology Study observation (narrative) [facility] Work Phone: CT Abdomen and Pelvis W cont rast IVOrdered By: Yohana Huang on 10-04-2024 [facility] Work Phone: Cell count panel (Body fld)O rdered By: Fortino Mcgee on 10-04-2024 Clarity (Body fld) Hazy Abnormal Clear [facility] Color (Body fld) Straw Colorless, Straw, Yellow [facility] Interpretation and review of laboratory results Abnormal [facility] RBC Auto (Body fld) [#/Vol] 2000 /uL see comment [facility] WBC (Body fld) [#/Vol] 0.058 10*3/uL See Commen t [facility] Body Fluid cell coun t reference ranges have not been established by [facility]. Reference ranges provided are based on published references. [facility] Cell count panel (Body fld)o n 10-04-2024 Clarity (Body fld) Hazy Abnormal Clear [facility] Comment on above: Order Comment: Body Fluid cell count reference ranges have not been established by [facility]. Reference ranges provided are based on published references. Performed By: #### 3 4556-1 #### MIREYA SHAH ([id number]) [facility] ([facility]) [address] [place] [address] 89302 Color (Body fld) Straw Normal Colorless, Straw, Yellow [facility] Comment on above: Order Comment: Body Fluid cell count reference ranges have not been established by [facility]. Reference ranges provided are based on published references. Performed By: #### 3 4556-1 #### MIREYA SHAH ([id number]) [facility] ([facility]) [address] [place] [address] RBC Auto (Body fld) [#/Vol] 2000 /uL Normal see comment [facility] Comment on above: Order Comment: Body Fluid cell count reference ranges have not been established by [facility]. Reference ranges provided are based on published references. Performed By: #### 3 4556-1 #### MIREYA SHAH ([id number]) [facility] ([facility]) [address] [place] [address] WBC (Body fld) [#/Vol] 0.058 10*3/uL Normal See Commen t [facility] Comment on above: Order Comment: Body Fluid cell count reference ranges have not been established by [facility]. Reference ranges provided are based on published references. Performed By: #### 3 4556-1 #### MIREYA SHAH ([id number]) [facility] ([facility]) [address] [place] [address] Coagulation surface inducedo n 10-04-2024 aPTT Coag (PPP) [Time] 40 s High 26-36 [facility] Comment on above: Order Comment: The A PTT is no longer used for monitoring Unfractionated Heparin Therapy. For monitoring Heparin Therapy, use the Heparin Assay. Performed By: #### 1 4979-9 #### MIREYA SHAH ([id number]) [facility] ([facility]) [address] [place] [address] Coagulation tissue factor in ducedon 10-04-2024 PT Coag (PPP) [Time] 23.6 s High 9.8-12.4 [facility] Comment on above: Performed By: #### 5 902-2 #### MIREYA SHAH ([id number]) [facility] ([facility]) [address] [place] [address] Differential panel (Body fld )on 10-04-2024 Basophils/100 WBC (Body fld) 0 % not established [facility] Blasts/100 WBC Manual cnt (Body fld) 0 % not established [facility] Cells Counted Total (Body fld) [#] 100 [facility] Eosinophils/100 WBC Manual cnt (Body fld) 0 % see comment [facility] Immature Granulocytes %, Manual, Fluid 0 % not established [facility] Interpretation and review of laboratory results Abnormal [facility] Lymphocytes/100 WBC Manual cnt (Body fld) 19 % see comment [facility] Monocytes+Macrophages/1 00 WBC Manual cnt (Body fld) 17 % see comment [facility] Neutrophils/100 WBC (Body fld) 40 % see comment [facility] Other cells/100 WBC Manual cnt (Body fld) 24 % High not established [facility] Comment on above: Mesothelial cells no tianna by tech Plasma cells/100 WBC Manual cnt (Body fld) 0 % not established [facility] Body Fluid cell differential reference ranges have not been established by [facility]. Reference ranges provided are based on published references. [facility] Basophils/100 WBC (Body fld) 0 % Normal not established [facility] Comment on above: Order Comment: Body Fluid cell differential reference ranges have not been established by [facility]. Reference ranges provided are based on published references. Performed By: #### 2 9580-8 #### MIREYA SHAH ([id number]) [facility] ([facility]) [facility] [place] [address] Blasts/100 WBC Manual cnt (Body fld) 0 % Normal not established [facility] Comment on above: Order Comment: Body Fluid cell differential reference ranges have not been established by [facility]. Reference ranges provided are based on published references. Performed By: #### 2 9580-8 #### MIREYA SHAH ([id number]) [facility] ([facility]) [address] [place] [address] Cells Counted Total (Body fld) [#] 100 Normal [facility] Comment on above: Order Comment: Body Fluid cell differential reference ranges have not been established by [facility]. Reference ranges provided are based on published references. Performed By: #### 2 9580-8 #### MIREYA SHAH ([id number]) [facility] ([facility]) [address] [place] [address] Eosinophils/100 WBC Manual cnt (Body fld) 0 % Normal see comment [facility] Comment on above: Order Comment: Body Fluid cell differential reference ranges have not been established by [facility]. Reference ranges provided are based on published references. Performed By: #### 2 9580-8 #### MIREYA SHAH ([id number]) [facility] ([facility]) [address] [place] [address] IMMATURE GRANULOCYTES IN FLUID 0 % Normal not established [facility] Comment on above: Order Comment: Body Fluid cell differential reference ranges have not been established by [facility]. Reference ranges provided are based on published references. Performed By: #### 2 9580-8 #### MIREYA SHAH ([id number]) [facility] ([facility]) [address] [place] [address] 27841 Lymphocytes/100 WBC Manual cnt (Body fld) 19 % Normal see comment [facility] Comment on above: Order Comment: Body Fluid cell differential reference ranges have not been established by [facility]. Reference ranges provided are based on published references. Performed By: #### 2 9580-8 #### MIREYA SHAH ([id number]) [facility] ([facility]) [address] [place] [address] Monocytes+Macrophages/1 00 WBC Manual cnt (Body fld) 17 % Normal see comment [facility] Comment on above: Order Comment: Body Fluid cell differential reference ranges have not been established by [facility]. Reference ranges provided are based on published references. Performed By: #### 2 9580-8 #### MIREYA SHAH ([id number]) [facility] ([facility]) [address] [place] [address] 23537 Neutrophils/100 WBC (Body fld) 40 % Normal see comment [facility] Comment on above: Order Comment: Body Fluid cell differential reference ranges have not been established by [facility]. Reference ranges provided are based on published references. Performed By: #### 2 9580-8 #### MIREYA SHAH ([id number]) [facility] ([facility]) [address] [place] [address] Other cells/100 WBC Manual cnt (Body fld) 24 % High not established [facility] Comment on above: Order Comment: Body Fluid cell differential reference ranges have not been established by [facility]. Reference ranges provided are based on published references. Result Comment: Meso thelial cells noted by tech Performed By: #### 2 9580-8 #### MIREYA SHAH ([id number]) [facility] ([facility]) [facility] [place] [address] Plasma cells/100 WBC Manual cnt (Body fld) 0 % Normal not established [facility] Comment on above: Order Comment: Body Fluid cell differential reference ranges have not been established by [facility]. Reference ranges provided are based on published references. Performed By: #### 2 9580-8 #### MIREYA SHAH ([id number]) [facility] ([facility]) [address] [place] [address] 64328 Glucoseon 10-04-2024 Glucose (Body fld) [Mass/Vol] 200 mg/dL Normal Not established [facility] Comment on above: Order Comment: Venip uncture immediately after or during the administration of Metamizole may lead to falsely low results. Testing should be performed immediately prior to Metamizole dosing. Performed By: #### 2 524-7 #### MIREYA SHAH ([id number]) [facility] ([facility]) [address] [place] [address] 36881 Hepatic function 2000 panelo n 10-04-2024 Albumin BCP dye [Mass/Vol] 2.4 g/dL Low 3.4 - 5.0 g/dL [facility] ALP [Catalytic activity/Vol] 212 U/L High 33 - 120 U/L [facility] ALT With P-5'-P [Catalytic activity/Vol] 46 U/L 10 - 52 U/L [facility] Comment on above: Patients treated wit h Sulfasalazine may generate falsely decreased results for ALT. AST With P-5'-P [Catalytic activity/Vol] 49 U/L High 9 - 39 U/L [facility] Bilirubin [Mass/Vol] 1.8 mg/dL High 0.0 - 1 .2 mg/dL [facility] Bilirubin.direct [Mass/Vol] 0.7 mg/dL High 0.0 - 0.3 mg/dL [facility] Protein [Mass/Vol] 5.7 g/dL Low 6.4 - 8.2 g/dL [facility] Albumin BCP dye [Mass/Vol] 2.4 g/dL Low 3.4-5.0 [facility] Comment on above: Performed By: #### 2 4325-3 #### MIREYA SHAH ([id number]) [facility] ([facility]) [address] [place] [address] ALP [Catalytic activity/Vol] 212 U/L High 33-120 [facility] Comment on above: Performed By: #### 2 5-3 #### MIREYA SHAH ([id number]) [facility] ([facility]) [address] [place] [address] 40352 ALT With P-5'-P [Catalytic activity/Vol] 46 U/L Normal 10-52 [facility] Comment on above: Result Comment: Argenis ents treated with Sulfasalazine may generate falsely decreased results for ALT. Performed By: #### 2 5-3 #### MIREYA SHAH ([id number]) [facility] ([facility]) [address] [place] [address] AST With P-5'-P [Catalytic activity/Vol] 49 U/L High 9-39 [facility] Comment on above: Performed By: #### 2 5-3 #### MIREYA SHAH ([id number]) [facility] ([facility]) [address] [place] [address] 36689 Bilirubin [Mass/Vol] 1.8 mg/dL High 0.0-1.2 [facility] Comment on above: Performed By: #### 2 5-3 #### MIREYA SHAH ([id number]) [facility] ([facility]) [address] [place] [address] 12891 Bilirubin.direct [Mass/Vol] 0.7 mg/dL High 0.0-0.3 [facility] Comment on above: Performed By: #### 2 5-3 #### MIREYA SHAH ([id number]) [facility] ([facility]) [address] [place] [address] 92966 Protein [Mass/Vol] 5.7 g/dL Low 6.4-8.2 [facility] Comment on above: Performed By: #### 2 4325-3 #### MIREYA SHAH ([id number]) [facility] ([facility]) [address] [place] [address] Lactateon 10-04-2024 Lactate [Moles/Vol] 2 mmol/L 0.4 - 2. 0 mmol/L [facility] Lactate [Moles/Vol] 2.0 mmol/L Normal 0.4-2.0 [facility] Comment on above: Order Comment: Venip uncture immediately after or during the administration of Metamizole may lead to falsely low results. Testing should be performed immediately prior to Metamizole dosing. Performed By: #### 2 524-7 #### MIREYA SHAH ([id number]) [facility] ([facility]) [address] [place] [address] 68646 Lactate [Moles/Vol]on 2024 Interpretation and review of laboratory results Normal [facility] Venipuncture immedia tely after or during the administration of Metamizole may lead to falsely low results. Testing should be performed immediately prior to Metamizole dosing. [facility] Lactate dehydrogenaseon LDH Lactate to pyruvate reaction (Body fld) [Catalytic activity/Vol] <25 Normal Not established. [facility] Comment on above: Order Comment: Venip uncture immediately after or during the administration of Metamizole may lead to falsely low results. Testing should be performed immediately prior to Metamizole dosing. Performed By: #### 2 524-7 #### MIREYA SHAH ([id number]) [facility] ([facility]) [address] [place] [address] 57950 Lipaseon 10-04-2024 Lipase [Catalytic activity/Vol] 56 U/L 9 - 82 U/L [facility] Lipase [Catalytic activity/V ol]on 10-04-2024 Interpretation and review of laboratory results Normal [facility] Venipuncture immedia tely after or during the administration of Metamizole may lead to falsely low results. Testing should be performed immediately prior to Metamizole dosing. [facility] No Panel Informationon 10-04 Interpretation and review of laboratory results Abnormal [facility] Interpretation and review of laboratory results Abnormal [facility] Non-house parent cytology studyon Non-gynecological cytology method study Pathology report.total SEE COMMENT Non-gynecologic Cytology Case: [id number] Authorizing Provider: Joey Huang DO Collected: 10/04/2024 1714 Ordering Location: [facility] Received: 10/05/2024 [address] [facility] Pathologist: Jarvis Guzman MD Specimen: ASCITIC FLUID Path report.final diagnosis SEE COMMENT A. ASCITIC FLUID: - NO MALIGNANT CELLS IDENTIFIED. Note: This case has been evaluated using a concentrated (ThinPrep) preparation. Laboratory comment SEE COMMENT Slide(s) initially screened by ABEL Castro at [address] [id number] By the signature on this report, the [...] A1-1 Pap Stain NGYN ThinPrep Normal [facility] PT Coag (PPP) [Time]on 10-04 INR Coag (PPP) [Relative time] 2.1 {INR} High 0.9 - 1.1 [facility] INR Coag (PPP) [Relative time] 2.1 High 0.9-1.1 [facility] Comment on above: Performed By: #### 5 902-2 #### GOMES ALYSSA ([id number]) [facility] ([facility]) [address] [place] [address] Paracentesison 10-04-2024 Joey Huang DO 10/04/2024 5:18 PM Paracentesis Date/Time: 10/04/2024 5:17 PM Performed by: Joey Huang DO Authorized by: Joey Huang DO Consent: Consent obtained: Written Consent given by: Patient Risks, benefits, and alternatives were discussed: yes Risks discussed: Bleeding, bowel perforation and infection Alternatives discussed: No treatment [place] protocol: Procedure explained and questions answered to [...] Post-procedure details: Procedure completion: Tolerated [facility] Work Phone: [facility] Work Phone: Proteinon 10-04-2024 Protein (Body fld) [Mass/Vol] g/dL Normal Not established [facility] Comment on above: Order Comment: Venip uncture immediately after or during the administration of Metamizole may lead to falsely low results. Testing should be performed immediately prior to Metamizole dosing. Performed By: #### 2 524-7 #### MIREYA SHAH ([id number]) [facility] ([facility]) [address] [place] [address] Protime-INRon 10-04-2024 PT Coag (PPP) [Time] 23.6 s [facility] Triacylglycerol lipaseon Lipase [Catalytic activity/Vol] 56 U/L Normal 9-82 [facility] Comment on above: Order Comment: Venip uncture immediately after or during the administration of Metamizole may lead to falsely low results. Testing should be performed immediately prior to Metamizole dosing. Performed By: #### 3 040-3 #### MIREYA SHAH ([id number]) [facility] ([facility]) [address] [place] [address] aPTT Coag (PPP) [Time]on The APTT is no longe r used for monitoring Unfractionated Heparin Therapy. For monitoring Heparin Therapy, use the Heparin Assay. [facility] pHon 10-04-2024 pH (Body fld) 7.82 Normal See Below [facility] Comment on above: Order Comment: Venip uncture immediately after or during the administration of Metamizole may lead to falsely low results. Testing should be performed immediately prior to Metamizole dosing. Performed By: #### 2 524-7 #### GOMES ALYSSA ([id number]) [facility] ([facility]) [facility] [place] [address] Glucose measurement at [facility] deOrdered By: Boone Izquierdo on 09-14-2024 Bedside Glucose (Misc Panel) 134 mg/dL High 74-106 [facility] Comment on above: MANAGEMENT OF PATIEN T CARE PER NURSING PROTOCOL Glucose [Mass/Vol] 134 mg/dL High 74-106 [facility] Glucose measurement at bedside 134 mg/dL High 74-106 [facility] Blood urea nitrogen (BUN)/cr eatinine ratioOrdered By: Jae Ash on 09-12-2024 Urea nitrogen/Creatinine [Mass ratio] 7.6 mg/mg Low 10-20 [facility] Blood urea nitrogen (BUN)/creatinine ratio 7.6 RATIO Low 10-20 [facility] Calcium [Mass/Vol]Ordered By : Jae Ash on 09-12-2024 Serum or plasma calcium measurement (mass/volume) 8.1 mg/dL Low 8.5-10.1 [facility] Carbon dioxide measurementOr dered By: Jae Ash on 09-12-2024 CO2 [Moles/Vol] 20.0 mmol/L Low 21.0-32.0 [facility] Carbon dioxide measurement 20.0 mmol/L Low 21.0-32.0 [facility] Chloride measurementOrdered By: Jae Ash on 09-12-2024 Chloride [Moles/Vol] 109 mmol/L High 98-107 [facility] Chloride measurement 109 mmol/L High 98-107 [facility] Creatinine [Mass/Vol]Ordered By: Jae Ash on 09-12-2024 Serum or plasma creatinine measurement (mass/volume) 0.92 mg/dL 0.70-1.30 [facility] Erythrocyte distribution wid th (RBC) [Ratio]Ordered By: Jae Ash on 09-12-2024 Erythrocyte distribution width ratio 19.7 % High 11.6-14.6 [facility] Erythrocyte distribution width standard deviation 63.5 fl High 35.1-43.9 [facility] Erythrocyte distribution wid th ratioOrdered By: Jae Ash on 09-12-2024 Erythrocyte distribution width (RBC) [Ratio] 19.7 % High 11.6-14.6 [facility] Erythrocyte distribution wid th standard deviationOrdered By: Jae Ash on 09-12-2024 Erythrocyte distribution width (RBC) [Entitic vol] 63.5 fL High 35.1-43.9 [facility] Erythrocyte distribution width (RBC) [Ratio] 63.5 fl High 35.1-43.9 [facility] Estimated glomerular filtrat ion rate (GFR) AmericanOrdered By: Jae Ash on 09-12-2024 Estimated GFR (MDRD) Amer 108 mL/min >60 [facility] Comment on above: GFR Calc Estimated glomerular filtration rate (GFR) 108 mL/min >60 [facility] Estimation of creatinine [place] aranceOrdered By: Jae Ash on 09-12-2024 Estimated Creatinine Clearance Calc 71.80 ml/min [facility] Estimation of creatinine clearance 71.80 ml/min [facility] Glomerular filtration rate ( GFR) estimationOrdered By: Jae Ash on 09-12-2024 Estimated GFR (MDRD) Non-Af Amer 89 mL/min >60 [facility] Comment on above: Non- GFR Calc GFR/1.73 sq M.predicted among non-blacks MDRD (S/P/Bld) [Vol rate/Area] 89 mL/min/{1.73_m2} >60 [facility] Glomerular filtration rate (GFR) estimation 89 mL/min >60 [facility] Glucose measurementOrdered B y: Jae Ash on 09-12-2024 Glucose [Mass/Vol] 149 mg/dL High 74-106 [facility] Comment on above: Fasting Glucose resu lt greater than or equal to 126 mg/dL suggests DIABETES MELLITUS per A.D.A. criteria. Glucose measurement 149 mg/dL High 74-106 [facility] Hematocrit Auto (Bld) [Volum e fraction]Ordered By: Jae Ash on 09-12-2024 Hematocrit (Bld) [Volume fraction] 25.8 % Low 40-54 [facility] Automated blood hematocrit (percentage) 25.8 % Low 40-54 [facility] Hemoglobin measurementOrdere d By: Jae Ash on 09-12-2024 Hemoglobin (Bld) [Mass/Vol] 8.1 g/dL Low 13.0-16.5 [facility] Hemoglobin measurement 8.1 g/dL Low 13.0-16.5 [facility] MCV (RBC) [Entitic vol]Order ed By: Jae Ash on 09-12-2024 MCV (mean corpuscular volume) determination 90.5 fL 80-94 [facility] MCV (mean corpuscular volume ) determinationOrdered By: Jae Ash on 09-12-2024 MCV (RBC) [Entitic vol] 90.5 fL 80-94 [facility] Mean corpuscular hemoglobin (MCH) determinationOrdered By: Jae Ash on 09-12-2024 MCH (RBC) [Entitic mass] 28.4 pg 27.0-32.0 [facility] Mean corpuscular hemoglobin (MCH) determination 28.4 pg 27.0-32.0 [facility] Mean corpuscular hemoglobin concentration (MCHC) determinationOrdered By: Jae Ash on 09-12-2024 MCHC (RBC) [Mass/Vol] 31.4 g/dL Low 32-36 [facility] Comment on above: Delta: 33.1 on 09/10 Mean corpuscular hemoglobin concentration (MCHC) determination 31.4 g/dL Low 32-36 [facility] Mean platelet volume determi nationOrdered By: Jae Ash on 09-12-2024 Platelet mean volume (Bld) [Entitic vol] 11.9 fL 6.2-12.0 [facility] Mean platelet volume determination 11.9 fl 6.2-12.0 [facility] Platelet countOrdered By: Sky Ash on 09-12-2024 Platelets (Bld) [#/Vol] 115 10*3/uL Low 150-450 [facility] Platelet count 115 K/mm3 Low 150-450 [facility] Potassium measurementOrdered By: Jae Ash on 09-12-2024 Potassium [Moles/Vol] 3.4 mmol/L Low 3.5-5.1 [facility] Potassium measurement 3.4 mmol/L Low 3.5-5.1 [facility] RBC Auto (Bld) [#/Vol]Ordere d By: Jae Ash on 09-12-2024 RBC (Bld) [#/Vol] 2.85 10*6/uL Low 4.6-6.2 [facility] Automated blood erythrocyte count 2.85 M/mm3 Low 4.6-6.2 [facility] Serum anion gap measurementO rdered By: Jae Ash on 09-12-2024 Anion gap [Moles/Vol] 7 mmol/L 5-15 [facility] Serum anion gap measurement 7 5-15 [facility] Serum or plasma calcium roosevelt urement (mass/volume)Ordered By: Jae Ash on 09-12-2024 Calcium [Mass/Vol] 8.1 mg/dL Low 8.5-10.1 [facility] Serum or plasma creatinine m easurement (mass/volume)Ordered By: Jae Ash on 09-12-2024 Creatinine [Mass/Vol] 0.92 mg/dL 0.70-1.30 [facility] Comment on above: The validity of the calculated GFR & GFRAA in patients over 70 years has not been determined. Clinical correlation is essential. Serum or plasma urea nitroge n measurement (mass/volume)Ordered By: Jae Ash on 09-12-2024 Urea nitrogen [Mass/Vol] 7 mg/dL 7-18 [facility] Sodium levelOrdered By: Pasha Ash on 09-12-2024 Sodium [Moles/Vol] 136 mmol/L 136-145 [facility] Sodium level 136 mmol/L 136-145 [facility] Urea nitrogen [Mass/Vol]Orde red By: Jae Ash on 09-12-2024 Serum or plasma urea nitrogen measurement (mass/volume) 7 mg/dL 7-18 [facility] White blood cell (WBC) count Ordered By: Jae Ash on 09-12-2024 WBC (Bld) [#/Vol] 7.4 10*3/uL 4.4-11.0 [facility] White blood cell (WBC) count 7.4 K/mm3 4.4-11.0 [facility] Serum or plasma trough vanco mycin levelOrdered By: Thai Thurston on 09-10-2024 Vancomycin trough [Mass/Vol] 15.7 ug/mL High 5.0-15.0 [facility] Vancomycin trough [Mass/Vol] Ordered By: Thai Thurston on 09-10-2024 Vancomycin Level Trough 15.7 ug/mL High 5.0-15.0 [facility] Comment on above: VANCOMYCIN STANDARED DRUG THERAPY TROUGH LEVEL: 5.0 - 15.0 mg/L VANCOMYCIN HIGH INTENSITY THERAPY TROUGH LEVEL: 15.0 - 20.0 mg/L High Intensity therapy recommended for serious lifethreatening infections include:- Dtvodytubk-Mpsriirkaqjh-Yegsvdrie (Ventilator/Healtcare Associated)-Sepsis PLEASE CONTACT PHARMACY SERVICES (#[id number]) FOR INTERPRETATIONOF RESULTS. Serum or plasma trough vancomycin level 15.7 ug/mL High 5.0-15.0 [facility] Serum or plasma vancomycin l evel (mass/volume)Ordered By: Maria Guadalupe Shore on 09-08-2024 Vancomycin [Mass/Vol] 16.5 ug/mL High 0.0-15.0 [facility] Vancomycin [Mass/Vol]Ordered By: Maria Guadalupe Shore on 09-08-2024 Random Vancomycin Level 16.5 ug/mL High 0.0-15.0 [facility] Comment on above: VANCOMYCIN STANDARD DRUG THERAPY: CRITICAL VALUE IS > 15.0 mg/L VANCOMYCIN HIGH INTENSITY THERAPY: CRITICAL VALUE IS > 20.0 mg/L PLEASE CONTACT PHARMACY SERVICES (#[id number]) FOR INTERPRETATIONOF RESULTS. THIS RESULT DOES NOT REPRESENT A PEAK OR TROUGHLEVEL FOR THIS DRUG. Serum or plasma vancomycin level (mass/volume) 16.5 ug/mL High 0.0-15.0 [facility] Absolute lymphocyte countOrd ered By: Anurag Irene on 09-07-2024 Lymphocytes Auto (Unsp spec) [#/Vol] 0.95 10*3/uL 0.83-4.51 [facility] Absolute neutrophil countOrd ered By: Anurag Irene on 09-07-2024 Neutrophils (Bld) [#/Vol] 13.3 10*3/uL High 2.0-7.7 [facility] Absolute neutrophil count 13.3 X10^3/uL High 2.0-7.7 [facility] Automated lymphocyte count a s percentage of total leukocytesOrdered By: Anurag Irene on 09-07-2024 Lymphocytes/100 WBC Auto (Unsp spec) 5.8 % Low 19-41 [facility] Basophil percentageOrdered B y: Anurag Irene on 09-07-2024 Basophils/100 WBC (Bld) 0.4 % 0-1 [facility] Basophil [facility] 0.4 % 0-1 [facility] Eosinophil percentageOrdered By: Anurag Irene on 09-07-2024 Eosinophils/100 WBC (Bld) 3.0 % 0-5 [facility] Eosinophil percentage 3.0 % 0-5 [facility] Immature granulocytes/100 WB C Auto (Bld)Ordered By: Anurag Irene on 09-07-2024 Immature granulocytes/100 WBC (Bld) 1.400 % High 0.0-0.9 [facility] Comment on above: IG% - Immature Granu locytes (promyelocytes, myelocytes and metamyelocytes) > 1% indicates that a LEFT SHIFT is Present. Automated immature granulocyte percentage 1.400 % High 0.0-0.9 [facility] Lymphocytes Auto (Unsp spec) [#/Vol]Ordered By: Anurag Irene on 09-07-2024 Lymphocytes (Bld) [#/Vol] 0.95 10*3/uL 0.83-4.51 [facility] Absolute lymphocyte count 0.95 X10^3/uL 0.83-4.51 [facility] Lymphocytes/100 WBC Auto (Un sp spec)Ordered By: Anurag Irene on 09-07-2024 Lymphocytes/100 WBC (Bld) 5.8 % Low 19-41 [facility] Automated lymphocyte count as percentage of total leukocytes 5.8 % Low 19-41 [facility] Monocyte percentageOrdered B y: Anurag Irene on 09-07-2024 Monocytes/100 WBC (Bld) 8.6 % 0-10 [facility] Monocyte percentage 8.6 % 0-10 [facility] Neutrophil percentageOrdered By: Anurag Irene on 09-07-2024 Neutrophils/100 WBC (Bld) 80.8 % High 47-70 [facility] Neutrophil percentage 80.8 % High 47-70 [facility] Nucleated red blood cell per centageOrdered By: Anurag Irene on 09-07-2024 Nucleated RBC/100 WBC (Bld) [Ratio] 0 % 0-5 [facility] Nucleated red blood cell percentage 0 % 0-5 [facility] Blood cultureOrdered By: [place] Irene on 09-06-2024 Bacteria identified Cx Nom (Bld) No growth in 5 days. [facility] Blood culture No growth in 5 days. [facility] Blood cultureOrdered By: Shi Joiner on 09-05-2024 Bacteria identified Cx Nom (Bld) Staphylococcus epidermidis Abnormal [facility] Blood culture Staphylococcus epidermidis Abnormal [facility] Folic acid measurementOrdere d By: Hill Wright on 09-05-2024 Folate 30.10 ng/mL 3.1-55.4 [facility] Folic acid measurement 30.10 ng/mL 3.1-55.4 [facility] Lactic acid measurementOrder ed By: Hill Wright on 09-05-2024 Lactate [Moles/Vol] 2.3 mmol/L High 0.4-2.0 [facility] Comment on above: Critical Result(s) C alled at: 08:26:40 09/05/2024 by: Lucy Haque to [facility]. Results read back by same. Lactic acid measurement 2.3 mmol/L High 0.4-2.0 [facility] Serum ethanol measurementOrd ered By: Hill Wright on 09-05-2024 Ethyl Alcohol Level 4.0 mg/dL [facility] Comment on above: The serum:whole bloo d ethanol ratio is approximately 1.14and varies slightly with hematocrit. Medical Alcohol reference interval and critical value innon-tolerant individuals; 50 - 100 Impairment 100 Intoxication 100 - 250 Severe Poisoning 250 - 400 Deep/possible fatal coma Serum ethanol measurement 4.0 mg/dL [facility] Vitamin B12 measurementOrder ed By: Hill Wright on 09-05-2024 Vitamin B12 Level > 2000 pg/mL High 211-911 [facility] Vitamin B12 measurement > 2000 pg/mL High 211-911 [facility] ALP [Catalytic activity/Vol] Ordered By: Rachel Joiner on 09-04-2024 Serum or plasma alkaline phosphatase measurement 269 U/L High 45-117 [facility] ALT [Catalytic activity/Vol] Ordered By: Rachel Joiner on 09-04-2024 Serum or plasma alanine aminotransferase (ALT) measurement 79 U/L High 16-61 [facility] Albumin [Mass/Vol]Ordered By : Rachel Joiner on 09-04-2024 Serum or plasma albumin measurement (mass/volume) 2.0 g/dL Low 3.2-5.0 [facility] Bilirubin Test strip Ql (U)O rdered By: Rachel Joiner on 09-04-2024 Bilirubin Ql (U) 1 mg/dL High Negative [facility] Comment on above: COLOR OF URINE MAY A FFECT DIPSTICK RESULTS. Bilirubin directOrdered By: Rachel Joiner on 09-04-2024 Bilirubin.direct [Mass/Vol] 1.80 mg/dL High 0.00-0.30 [facility] Bilirubin, totalOrdered By: Rachel Joiner on 09-04-2024 Bilirubin [Mass/Vol] 3.10 mg/dL High 0.20-1.00 [facility] Comment on above: For patients on eltr ombopag therapy, use of Dimension [place] TBIL is not recommended. Bilirubin, total 3.10 mg/dL High 0.20-1.00 [facility] Bilirubin.direct [Mass/Vol]O rdered By: Rachel Joiner on 09-04-2024 Bilirubin direct 1.80 mg/dL High 0.00-0.30 [facility] Blood cultureOrdered By: Shi Joiner on 09-04-2024 Bacteria identified Cx Nom (Bld) [facility] Clarity (U)Ordered By: Kaz Joiner on 09-04-2024 Urine clarity Clear Clear [facility] Color (U)Ordered By: Rachel Joiner on 09-04-2024 Urine color determination Yellow Yellow [facility] Epithelial cells.squamous LM Ql (Urine sed)Ordered By: Rachel Joiner on 09-04-2024 Epithelial cells.squamous LM.HPF (Urine sed) [#/Area] 0 /[HPF] 0-5 [facility] Glucose Ql (U)Ordered By: Brendan Joiner on 09-04-2024 Urine Glucose (UA) Normal mg/dl Normal [facility] Urine glucose detection Normal mg/dl Normal [facility] HbA1c (Bld) [Mass fraction]O rdered By: Hill Wright on 09-04-2024 Hemoglobin A1c percentage 7.3 % High 3.8-5.6 [facility] Hemoglobin A1c percentageOrd ered By: Hlil Wright on 09-04-2024 HbA1c (Bld) [Mass fraction] 7.3 % High 3.8-5.6 [facility] Comment on above: Normal < 5.7 % Predi abetic 5.7 - 6.4 % Diabetic >or= 6.5 % Please note range changes. Ketones Test strip Ql (U)Ord ered By: Rachel Joiner on 09-04-2024 Ketones Ql (U) Negative Negative [facility] Laboratory - Chemistry and C hemistry - challengeOrdered By: Rachel Joiner on 09-04-2024 AST [Catalytic activity/Vol] 156 U/L High 15-37 [facility] Leukocyte esterase Test stri p Ql (U)Ordered By: Rachel Joiner on 09-04-2024 Urine leukocyte esterase detection by dipstick 100 /ul High Negative [facility] Methadone, urineOrdered By: Rachel Joiner on 09-04-2024 Urine Methadone Screen Negative < 300 ng/mL [facility] Microorganism identified Cx Nom (Unsp spec)Ordered By: Rachel Joiner on 09-04-2024 Bacteria Detection (PCR) Staphylococcus epidermidis Abnormal [facility] Bacteria Detection (PCR) mecA Resistance Marker Abnormal [facility] Organism identification mecA Resistance Marker Abnormal [facility] Microscopic analysis of urin e for red blood cells (RBC)Ordered By: Rachel Joiner on 09-04-2024 Urine RBC 10-25 SEEN /hpf 0-5 [facility] Microscopic analysis of urine for red blood cells (RBC) 10-25 SEEN /hpf 0-5 [facility] Mucus LM Ql (Urine sed)Order ed By: Rachel Joiner on 09-04-2024 Mucus Ql (Urine sed) 0 SEEN /hpf [facility] Nitrite Test strip Ql (U)Ord ered By: Rachel Joiner on 09-04-2024 Nitrite Ql (U) Negative Negative [facility] No Panel InformationOrdered By: Rachel Joiner on 09-04-2024 156 U/L High 15-37 [facility] Urine Drug Screen Comment [facility] Comment on above: CONFIRMATORY TESTING [...] MUST BE ORDERED SEPARATELY. USE TESTMNEMONIC: [facility] Organism identificationOrder ed By: Rachel Joiner on 09-04-2024 Microorganism identified Cx Nom (Unsp spec) Staphylococcus epidermidis Abnormal [facility] Microorganism identified Cx Nom (Unsp spec) mecA Resistance Marker Abnormal [facility] Protein Test strip Ql (U)Ord ered By: Rachel Joiner on 09-04-2024 Protein Ql (U) 30 mg/dl High Negative [facility] Urine protein assay by test strip, semi-quantitative 30 mg/dl High Negative [facility] Quantitative urine opiates m easurementOrdered By: Rachel Joiner on 09-04-2024 Opiates Ql (U) Positive High < 300 ng/mL [facility] Quantitative urine opiates measurement Positive High < 300 ng/mL [facility] Screening prostate specific antigen (PSA) measurementOrdered By: Hill Wright on 09-04-2024 Prostate Specific Antigen Screen 1.41 ng/mL 0.00-4.00 [facility] Comment on above: This test was perfor med using the TPSA assay method [facility] the[facility]. Values obtained with differentassay methods cannot be used interchangably.When changing PSA assays in the course of monitoring apatient, additional sequential testing should be carriedout to confirm baseline values. Screening prostate specific antigen (PSA) measurement 1.41 ng/mL 0.00-4.00 [facility] Serum globulin measurementOr dered By: Rachel Joiner on 09-04-2024 Globulin (S) [Mass/Vol] 4.1 g/dL 2.2-4.2 [facility] Serum globulin measurement 4.1 g/dL 2.2-4.2 [facility] Serum or plasma alanine thomas otransferase (ALT) measurementOrdered By: Rachel Joiner on 09-04-2024 ALT [Catalytic activity/Vol] 79 U/L High 16-61 [facility] Serum or plasma albumin roosevelt urement (mass/volume)Ordered By: Rachel Joiner on 09-04-2024 Albumin [Mass/Vol] 2.0 g/dL Low 3.2-5.0 [facility] Serum or plasma alkaline kendrick sphatase measurementOrdered By: Rachel Joiner on 09-04-2024 ALP [Catalytic activity/Vol] 269 U/L High 45-117 [facility] Serum or plasma thyroid stim ulating hormone (TSH) measurement (units/volume)Ordered By: Hill Wright on 09-04-2024 TSH Qn 0.826 uIU/mL 0.358-3.740 [facility] Specific gravity (U) [Rel de nsity]Ordered By: Rachel Joiner on 09-04-2024 Urine specific gravity measurement 1.020 1.002-1.030 [facility] Squamous epithelial cells de tection in urine sediment by light microscopyOrdered By: Rachel Joiner on 09-04-2024 Epithelial cells.squamous LM Ql (Urine sed) 0 SEEN /hpf 0-5 [facility] Squamous epithelial cells detection in urine sediment by light microscopy 0 SEEN /hpf [facility] TSH QnOrdered By: Hill patino on 09-04-2024 Thyroid Stimulating Hormone (TSH) 0.826 uIU/mL 0.358-3.740 [facility] Serum or plasma thyroid stimulating hormone (TSH) measurement (units/volume) 0.826 uIU/mL 0.358-3.740 [facility] Total proteinOrdered By: Shi Joiner on 09-04-2024 Protein [Mass/Vol] 6.1 g/dL Low 6.4-8.2 [facility] Total protein 6.1 g/dL Low 6.4-8.2 [facility] Urine amphetamine measuremen tOrdered By: Rachel Joiner on 09-04-2024 Amphetamines Ql (U) Negative <1000 ng/mL [facility] Urine barbiturates measureme ntOrdered By: Rachel Joiner on 09-04-2024 Urine Barbiturates Screen Negative < 200 ng/mL [facility] Urine benzodiazepine levelOr dered By: Rachel Joiner on 09-04-2024 Benzodiazepines Ql (U) Negative < 200 ng/mL [facility] Urine blood detectionOrdered By: Rachel Joiner on 09-04-2024 Urine Occult Blood 150 /ul High Negative [facility] Urine blood detection 150 /ul High Negative [facility] Urine clarityOrdered By: Shi Joiner on 09-04-2024 Clarity (U) Clear Clear [facility] Urine cocaine levelOrdered B y: Rachel Joiner on 09-04-2024 Cocaine Ql (U) Negative < 300 ng/mL [facility] Urine color determinationOrd ered By: Rachel Joiner on 09-04-2024 Color (U) Yellow Yellow [facility] Urine cultureOrdered By: Hugo Wright on 09-04-2024 Bacteria identified Cx Nom (U) Staphylococcus epidermidis Abnormal [facility] Urine culture Staphylococcus epidermidis Abnormal [facility] Urine natij-1-thjisiujnuxnco abinol (THC) measurementOrdered By: Rachel Joiner on 09-04-2024 Cannabinoids Screen Ql (U) Negative < 50 ng/mL [facility] Urine glucose detectionOrder ed By: Rachel Joiner on 09-04-2024 Glucose Ql (U) Normal mg/dl Normal [facility] Urine ketones detection by t est stripOrdered By: Rachel Joiner on 09-04-2024 Urine ketones detection by test strip Negative < 50 ng/mL [facility] Urine leukocyte esterase det ection by dipstickOrdered By: Rachel Joiner on 09-04-2024 Leukocyte esterase Test strip Ql (U) 100 /ul High Negative [facility] Urine methylenedioxymethamph etamine (MDMA) measurementOrdered By: Rachel Joiner on 09-04-2024 MDMA (Ecstasy) Screen Negative < 500 ng/mL [facility] Urine pHOrdered By: Rachel silva on 09-04-2024 pH (U) 6.0 [pH] 5.0 - 8.0 [facility] Urine phencyclidine (PCP) de tectionOrdered By: Rachel Joiner on 09-04-2024 Phencyclidine Ql (U) Negative < 25 ng/mL [facility] Urine sediment bacteria coun t by microscopy (number/high power field)Ordered By: Rachel Joiner on 09-04-2024 Bacteria LM.HPF (Urine sed) [#/Area] 0 /[HPF] None Seen [facility] Urine specific gravity measu rementOrdered By: Rachel Joiner on 09-04-2024 Specific gravity (U) [Rel density] 1.020 1.002-1.030 [facility] Urine total bilirubin detect ion by test stripOrdered By: Rachel Joiner on 09-04-2024 Urine total bilirubin detection by test strip 1 mg/dL High Normal [facility] Urine urobilinogen measureme ntOrdered By: Rachel Joiner on 09-04-2024 Urobilinogen Ql (U) 1 mg/dl High Normal [facility] Urobilinogen Ql (U)Ordered B y: Rachel Joiner on 09-04-2024 Urobilinogen (U) [Mass/Vol] 1 mg/dL High Normal [facility] Venous blood ammonia measure mentOrdered By: Rachel Joiner on 09-04-2024 Ammonia (P) [Moles/Vol] 26.0 umol/L [facility] Venous blood ammonia measurement 26.0 umol/L [facility] White blood cell countOrdere d By: Rachel Joiner on 09-04-2024 Urine WBC 5-10 SEEN /hpf 0-5 [facility] Comment on above: Previous reported re sult: 0 SEEN /hpfEdited by: DANIEL on 09/04/24:2337 AMENDED REPORT 09/04/242336 WBC previously reported as: 0 SEEN /hpf White blood cell count 5-10 SEEN /hpf 0-5 [facility] White blood cell count 5-10 SEEN /hpf 0-5 [facility] pH (U)Ordered By: Rachel Lolis lambert on 09-04-2024 Urine pH 6.0 5.0 - 8.0 [facility] Absolute lymphocyte countOrd ered By: Bola Meraz on 09-02-2024 Lymphocytes Auto (Unsp spec) [#/Vol] 1.04 10*3/uL 0.83-4.51 [facility] Absolute neutrophil countOrd ered By: Bola Meraz on 09-02-2024 Neutrophils (Bld) [#/Vol] 14.0 10*3/uL High 2.0-7.7 [facility] Absolute neutrophil count 14.0 X10^3/uL High 2.0-7.7 [facility] Automated lymphocyte count a s percentage of total leukocytesOrdered By: Bola Meraz on 09-02-2024 Lymphocytes/100 WBC Auto (Unsp spec) 6.3 % Low 19-41 [facility] Basophil percentageOrdered B y: Bola Meraz on 09-02-2024 Basophils/100 WBC (Bld) 0.4 % 0-1 [facility] Basophil percentage 0.4 % 0-1 [facility] Blood urea nitrogen (BUN)/cr eatinine ratioOrdered By: Bola Meraz on 09-02-2024 Urea nitrogen/Creatinine [Mass ratio] 16.9 mg/mg 10-20 [facility] Blood urea nitrogen (BUN)/creatinine ratio 16.9 RATIO 10-20 [facility] Calcium [Mass/Vol]Ordered By : Bola Meraz on 09-02-2024 Serum or plasma calcium measurement (mass/volume) 8.9 mg/dL 8.5-10.1 [facility] Carbon dioxide measurementOr dered By: Bola Meraz on 09-02-2024 CO2 [Moles/Vol] 19.0 mmol/L Low 21.0-32.0 [facility] Carbon dioxide measurement 19.0 mmol/L Low 21.0-32.0 [facility] Chloride measurementOrdered By: Bola Meraz on 09-02-2024 Chloride [Moles/Vol] 107 mmol/L 98-107 [facility] Chloride measurement 107 mmol/L 98-107 [facility] Creatinine [Mass/Vol]Ordered By: Bola Meraz on 09-02-2024 Serum or plasma creatinine measurement (mass/volume) 2.54 mg/dL High 0.70-1.30 [facility] Eosinophil percentageOrdered By: Bola Meraz on 09-02-2024 Eosinophils/100 WBC (Bld) 1.3 % 0-5 [facility] Eosinophil percentage 1.3 % 0-5 [facility] Erythrocyte distribution wid th (RBC) [Ratio]Ordered By: Bola Meraz on 09-02-2024 Erythrocyte distribution width ratio 15.7 % High 11.6-14.6 [facility] Erythrocyte distribution width standard deviation 47.0 fl High 35.1-43.9 [facility] Erythrocyte distribution wid th ratioOrdered By: Bola Meraz on 09-02-2024 Erythrocyte distribution width (RBC) [Ratio] 15.7 % High 11.6-14.6 [facility] Erythrocyte distribution wid th standard deviationOrdered By: Bola Meraz on 09-02-2024 Erythrocyte distribution width (RBC) [Entitic vol] 47.0 fL High 35.1-43.9 [facility] Erythrocyte distribution width (RBC) [Ratio] 47.0 fl High 35.1-43.9 [facility] Estimated glomerular filtrat ion rate (GFR) AmericanOrdered By: Bola Meraz on 09-02-2024 Estimated GFR (MDRD) Amer 34 mL/min Low >60 [facility] Comment on above: GFR Calc Estimated glomerular filtration rate (GFR) 34 mL/min Low >60 [facility] Estimation of creatinine [place] aranceOrdered By: Bola Meraz on 09-02-2024 Estimated Creatinine Clearance Calc 37.67 ml/min [facility] Estimation of creatinine clearance 37.67 ml/min [facility] Glomerular filtration rate ( GFR) estimationOrdered By: Bola Meraz on 09-02-2024 Estimated GFR (MDRD) Non-Af Amer 28 mL/min Low >60 [facility] Comment on above: Non- GFR Calc GFR/1.73 sq M.predicted among non-blacks MDRD (S/P/Bld) [Vol rate/Area] 28 mL/min/{1.73_m2} Low >60 [facility] Glomerular filtration rate (GFR) estimation 28 mL/min Low >60 [facility] Glucose measurementOrdered B y: Bola Meraz on 09-02-2024 Glucose [Mass/Vol] 187 mg/dL [address] [facility] Comment on above: Fasting Glucose resu lt greater than or equal to 126 mg/dL suggests DIABETES MELLITUS per A.D.A. criteria. Glucose measurement 187 mg/dL [address] [facility] Glucose measurement at [facility] deOrdered By: Rick Carlin on 09-02-2024 Bedside Glucose (Misc Panel) 168 mg/dL [address] Comment on above: MANAGEMENT OF PATIEN T CARE PER NURSING PROTOCOL Glucose [Mass/Vol] 168 mg/dL [address] Glucose measurement at bedside 168 mg/dL [address] Hematocrit Auto (Bld) [Volum e fraction]Ordered By: Bola Meraz on 09-02-2024 Hematocrit (Bld) [Volume fraction] 30.8 % Low 40-54 [facility] Automated blood hematocrit (percentage) 30.8 % Low 40-54 [facility] Hemoglobin measurementOrdere d By: Bola Meraz on 09-02-2024 Hemoglobin (Bld) [Mass/Vol] 10.7 g/dL Low 13.0-16.5 [facility] Hemoglobin measurement 10.7 g/dL Low 13.0-16.5 [facility] Immature granulocytes/100 WB C Auto (Bld)Ordered By: Bola Meraz on 09-02-2024 Immature granulocytes/100 WBC (Bld) 1.300 % High 0.0-0.9 [facility] Comment on above: IG% - Immature Granu locytes (promyelocytes, myelocytes and metamyelocytes) > 1% indicates that a LEFT SHIFT is Present. Automated immature granulocyte percentage 1.300 % High 0.0-0.9 [facility] Lymphocytes Auto (Unsp spec) [#/Vol]Ordered By: Bola Meraz on 09-02-2024 Lymphocytes (Bld) [#/Vol] 1.04 10*3/uL 0.83-4.51 [facility] Absolute lymphocyte count 1.04 X10^3/uL 0.83-4.51 [facility] Lymphocytes/100 WBC Auto (Un sp spec)Ordered By: Bola Meraz on 09-02-2024 Lymphocytes/100 WBC (Bld) 6.3 % Low 19-41 [facility] Automated lymphocyte count as percentage of total leukocytes 6.3 % Low 19-41 [facility] MCV (RBC) [Entitic vol]Order ed By: Bola Meraz on 09-02-2024 MCV (mean corpuscular volume) determination 83.7 fL 80-94 [facility] MCV (mean corpuscular volume ) determinationOrdered By: Bola Meraz on 09-02-2024 MCV (RBC) [Entitic vol] 83.7 fL 80-94 [facility] Mean corpuscular hemoglobin (MCH) determinationOrdered By: Bola Meraz on 09-02-2024 MCH (RBC) [Entitic mass] 29.1 pg 27.0-32.0 [facility] Mean corpuscular hemoglobin (MCH) determination 29.1 pg 27.0-32.0 [facility] Mean corpuscular hemoglobin concentration (MCHC) determinationOrdered By: Bola Meraz on 09-02-2024 MCHC (RBC) [Mass/Vol] 34.7 g/dL 32-36 [facility] Mean corpuscular hemoglobin concentration (MCHC) determination 34.7 g/dL 32-36 [facility] Mean platelet volume determi nationOrdered By: Bola Meraz on 09-02-2024 Platelet mean volume (Bld) [Entitic vol] 12.8 fL High 6.2-12.0 [facility] Mean platelet volume determination 12.8 fl High 6.2-12.0 [facility] Monocyte percentageOrdered B y: Bola Meraz on 09-02-2024 Monocytes/100 WBC (Bld) 6.0 % 0-10 [facility]ocyte [facility] 6.0 % 0-[facility] Neutrophil percentageOrdered By: Bola Meraz on 09-02-2024 Neutrophils/100 WBC (Bld) 84.7 % High 47-70 [facility] Neutrophil percentage 84.7 % High 47-70 [facility] Nucleated red blood cell per centageOrdered By: Bola Meraz on 09-02-2024 Nucleated RBC/100 WBC (Bld) [Ratio] 0 % 0-5 [facility] Nucleated red blood cell percentage 0 % 0-5 [facility] Platelet countOrdered By: Oliver on 09-02-2024 Platelets (Bld) [#/Vol] 82 10*3/uL Low 150-450 [facility] Platelet count 82 K/mm3 Low 150-450 [facility] Potassium measurementOrdered By: Bola Meraz on 09-02-2024 Potassium [Moles/Vol] 4.0 mmol/L 3.5-5.1 [facility] Potassium measurement 4.0 mmol/L 3.5-5.1 [facility] RBC Auto (Bld) [#/Vol]Ordere d By: Bola Meraz on 09-02-2024 RBC (Bld) [#/Vol] 3.68 10*6/uL Low 4.6-6.2 [facility] Automated blood erythrocyte count 3.68 M/mm3 Low 4.6-6.2 [facility] Serum anion gap measurementO rdered By: Bola Meraz on 09-02-2024 Anion gap [Moles/Vol] 8 mmol/L 5-15 [facility] Serum anion gap measurement 8 5-15 [facility] Serum or plasma calcium roosevelt urement (mass/volume)Ordered By: Bola Meraz on 09-02-2024 Calcium [Mass/Vol] 8.9 mg/dL 8.5-10.1 [facility] Serum or plasma creatinine m easurement (mass/volume)Ordered By: Bola Meraz on 09-02-2024 Creatinine [Mass/Vol] 2.54 mg/dL High 0.70-1.30 [facility] Comment on above: The validity of the calculated GFR & GFRAA in patients over 70 years has not been determined. Clinical correlation is essential. Serum or plasma urea nitroge n measurement (mass/volume)Ordered By: Bola Meraz on 09-02-2024 Urea nitrogen [Mass/Vol] 43 mg/dL High 7-18 [facility] Sodium levelOrdered By: Deanna Meraz on 09-02-2024 Sodium [Moles/Vol] 133 mmol/L Low 136-145 [facility] Sodium level 133 mmol/L Low 136-145 [facility] Urea nitrogen [Mass/Vol]Orde red By: Bola Meraz on 09-02-2024 Serum or plasma urea nitrogen measurement (mass/volume) 43 mg/dL High 7-18 [facility] White blood cell (WBC) count Ordered By: Bola Meraz on 09-02-2024 WBC (Bld) [#/Vol] 16.5 10*3/uL High 4.4-11.0 [facility] White blood cell (WBC) count 16.5 K/mm3 High 4.4-11.0 [facility] ALP [Catalytic activity/Vol] Ordered By: Maria Guadalupe Shore on 08-30-2024 Serum or plasma alkaline phosphatase measurement 143 U/L High 45-117 [facility] ALT [Catalytic activity/Vol] Ordered By: Maria Guadalupe Shore on 08-30-2024 Serum or plasma alanine aminotransferase (ALT) measurement 19 U/L 16-61 [facility] Albumin [Mass/Vol]Ordered By : Maria Guadalupe Shore on 08-30-2024 Serum or plasma albumin measurement (mass/volume) 1.9 g/dL Low 3.2-5.0 [facility] Bilirubin directOrdered By: Maria Guadalupe Shore on 08-30-2024 Bilirubin.direct [Mass/Vol] 0.83 mg/dL High 0.00-0.30 [facility] Bilirubin, totalOrdered By: Maria Guadalupe Shore on 08-30-2024 Bilirubin [Mass/Vol] 1.30 mg/dL High 0.20-1.00 [facility] Comment on above: For patients on eltr ombopag therapy, use of Dimension [place] TBIL is not recommended. Bilirubin, total 1.30 mg/dL High 0.20-1.00 [facility] Bilirubin.direct [Mass/Vol]O rdered By: Maria Guadalupe Shore on 08-30-2024 Bilirubin direct 0.83 mg/dL High 0.00-0.30 [facility] Ferritin measurementOrdered By: Maria Guadalupe Shore on 08-30-2024 Ferritin [Mass/Vol] 85 ng/mL 26-388 [facility] Ferritin measurement 85 ng/mL 26-388 [facility] HbA1c (Bld) [Mass fraction]O rdered By: Maria Guadalupe Shore on 08-30-2024 Hemoglobin A1c percentage 7.9 % High 3.8-5.6 [facility] Hemoglobin A1c percentageOrd ered By: Maria Guadalupe Shore on 08-30-2024 HbA1c (Bld) [Mass fraction] 7.9 % High 3.8-5.6 [facility] Comment on above: Normal < 5.7 % Predi abetic 5.7 - 6.4 % Diabetic >or= 6.5 % Please note range changes. Iron (Unsp spec) [Mass/Mass] Ordered By: Maria Guadalupe Shore on 08-30-2024 Iron [Mass/Vol] 62 ug/dL Low 65-175 [facility] Iron measurement (mass/mass) 62 ug/dL Low 65-175 [facility] Iron measurement (mass/mass) Ordered By: Maria Guadalupe Shore on 08-30-2024 Iron (Unsp spec) [Mass/Mass] 62 ug/dL Low 65-175 [facility] Iron saturation [Mass fracti on]Ordered By: Maria Guadalupe Shore on 08-30-2024 Iron Saturation 33.9 % 15.0-55.0 [facility] Serum or plasma iron saturation measurement (mass fraction) 33.9 % 15.0-55.0 [facility] Laboratory - Chemistry and C hemistry - challengeOrdered By: Maria Guadalupe Shore on 08-30-2024 AST [Catalytic activity/Vol] 22 U/L 15-37 [facility] No Panel InformationOrdered By: Maria Guadalupe Shore on 08-30-2024 22 U/L 15-37 [facility] Serum globulin measurementOr dered By: Maria Guadalupe Shore on 08-30-2024 Globulin (S) [Mass/Vol] 3.4 g/dL 2.2-4.2 [facility] Serum globulin measurement 3.4 g/dL 2.2-4.2 [facility] Serum or plasma alanine thomas otransferase (ALT) measurementOrdered By: Maria Guadalupe Shore on 08-30-2024 ALT [Catalytic activity/Vol] 19 U/L 16-61 [facility] Serum or plasma albumin roosevelt urement (mass/volume)Ordered By: Maria Guadalupe Shore on 08-30-2024 Albumin [Mass/Vol] 1.9 g/dL Low 3.2-5.0 [facility] Serum or plasma alkaline kendrick sphatase measurementOrdered By: Maria Guadalupe Shore on 08-30-2024 ALP [Catalytic activity/Vol] 143 U/L High 45-117 [facility] Serum or plasma iron saturat ion measurement (mass fraction)Ordered By: Maria Guadalupe Shore on 08-30-2024 Iron saturation [Mass fraction] 33.9 % 15.0-55.0 [facility] TIBCOrdered By: Maria Guadalupe Shore on 08-30-2024 Total Iron Binding Capacity 183 ug/dL Low 250-450 [facility] TIBC 183 ug/dL Low 250-450 [facility] Total proteinOrdered By: Aut davi Shore on 08-30-2024 Protein [Mass/Vol] 5.3 g/dL Low 6.4-8.2 [facility] Total protein 5.3 g/dL Low 6.4-8.2 [facility] Venous blood ammonia measure mentOrdered By: Maria Guadalupe Shore on 08-30-2024 Ammonia (P) [Moles/Vol] 64.0 umol/L High 11-32 [facility] Venous blood ammonia measurement 64.0 umol/L High 1132 [facility] Activated partial thrombopla stin time (aPTT) in platelet poor plasma by coagulation aOrdered By: Luis Carlos Anderson on 08-29-2024 aPTT Coag (PPP) [Time] 40.9 s High 24.1-36.2 [facility] Albumin to globulin ratioOrd ered By: Luis Carlos Anderson on 08-29-2024 Albumin/Globulin [Mass ratio] 0.4 {ratio} Low 0.9-2.4 [facility] Albumin to globulin ratio 0.4 RATIO Low 0.9-2.4 [facility] Bacteria LM.HPF (Urine sed) [#/Area]Ordered By: Luis Carlos Anderson on 08-29-2024 Urine Bacteria RARE /hpf None Seen [facility] Urine sediment bacteria count by microscopy (number/high power field) RARE /hpf None Seen [facility] Bilirubin Test strip Ql (U)O rdered By: Luis Carlos Anderson on 08-29-2024 Bilirubin Ql (U) 1 mg/dL High Negative [facility] Comment on above: COLOR OF URINE MAY A FFECT DIPSTICK RESULTS. Clarity (U)Ordered By: Juan Alberto Anderson on 08-29-2024 Urine clarity Clear Clear [facility] Color (U)Ordered By: Luis Carlos Anderson on 08-29-2024 Urine color determination Yellow Yellow [facility] Creatinine (U) [Mass/Vol]Ord ered By: Maria Guadalupe White on 08-29-2024 Urine creatinine measurement (mass/volume) 173.00 mg/dL NO RANGE EST. [facility] Epithelial cells.squamous LM Ql (Urine sed)Ordered By: Luis Carlos Anderson on 08-29-2024 Epithelial cells.squamous LM.HPF (Urine sed) [#/Area] 0 /[HPF] 0-5 [facility] Squamous epithelial cells detection in urine sediment by light microscopy 0 SEEN /hpf 0-5 [facility] Glucose Ql (U)Ordered By: Yaya Anderson on 08-29-2024 Glucose (U) [Mass/Vol] 50 mg/dL High Normal Wo [facility] Urine glucose detection 50 mg/dl High Normal [facility] International normalized rat io (INR) calculationOrdered By: Luis Carlos Anderson on 08-29-2024 INR Coag (Bld) [Relative time] 1.7 {INR} [facility] International normalized ratio (INR) calculation 1.7 [facility] Ketones Test strip Ql (U)Ord ered By: Luis Carlos Anderson on 08-29-2024 Ketones Ql (U) Negative Negative [facility] Leukocyte esterase Test stri p Ql (U)Ordered By: Luis Carlos Anderson on 08-29-2024 Urine leukocyte esterase detection by dipstick 500 /ul High Negative [facility] Lipase measurementOrdered By : Luis Carlos Anderson on 08-29-2024 Lipase [Catalytic activity/Vol] 26 U/L 13-75 [facility] Comment on above: Please note:LIPASE r evised reference range effective 22. New Lipase methodology. Expected to produce lower values than the previous assay method. NEW Reference Range: 13 - 75 U/L Lipase measurement 26 U/L -75 [facility] Magnesium measurementOrdered By: Maria Guadalupe Shore on 08-29-2024 Magnesium [Mass/Vol] 2.7 mg/dL High 1.6-2.6 [facility] Magnesium measurement 2.7 mg/dL High 1.6-2.6 [facility] Microscopic analysis of urin e for red blood cells (RBC)Ordered By: Luis Carlos Anderson on 08-29-2024 Urine RBC 5-10 SEEN /hpf 0-5 [facility] Microscopic analysis of urine for red blood cells (RBC) 5-10 SEEN /hpf 0-5 [facility] Mucus LM Ql (Urine sed)Order ed By: Luis Carlos Anderson on 08-29-2024 Mucus Ql (Urine sed) 1+ /hpf [facility] Mucus detection in urine sediment by light microscopy 1+ /hpf [facility] Nitrite Test strip Ql (U)Ord ered By: Luis Carlos Anderson on 08-29-2024 Nitrite Ql (U) Negative Negative [facility] Phosphorus measurementOrdere d By: Maria Guadalupe Shore on 08-29-2024 Phosphorus Level 4.9 mg/dL 2.5-4.9 [facility] Phosphorus measurement 4.9 mg/dL 2.5-4.9 [facility] Protein Test strip Ql (U)Ord ered By: Luis Carlos Anderson on 08-29-2024 Protein Ql (U) 30 mg/dl High Negative [facility] Urine protein assay by test strip, semi-quantitative 30 mg/dl High Negative [facility] Prothrombin timeOrdered By: Luis Carlos Anderson on 08-29-2024 PT Coag (PPP) [Time] 20.0 s High 11.7-14.9 [facility] Prothrombin time 20.0 SECONDS High 11.7-14.9 [facility] Sodium urOrdered By: Maria Guadalupe Shore on 08-29-2024 Sodium (U) [Moles/Vol] 30 mmol/L [facility] [Moles/Vol] 30 [facility]L [facility] Sodium ur 30 mmol/L Not Establ. [facility] Specific gravity (U) [Rel de nsity]Ordered By: Luis Carlos Anderson on 08-29-2024 Urine specific gravity measurement 1.015 1.002-1.030 [facility] Squamous epithelial cells de tection in urine sediment by light microscopyOrdered By: Luis Carlos Anderson on 08-29-2024 Epithelial cells.squamous LM Ql (Urine sed) 0 SEEN /hpf 0-5 [facility] Urine blood detectionOrdered By: Luis Carlos Anderson on 08-29-2024 Urine Occult Blood 150 /ul High Negative [facility] Urine blood detection 150 /ul High Negative [facility] Urine clarityOrdered By: Joann Anderson on 08-29-2024 Clarity (U) Clear Clear [facility] Urine color determinationOrd ered By: Luis Carlos Anderson on 08-29-2024 Color (U) Yellow Yellow [facility] Urine creatinine measurement (mass/volume)Ordered By: Maria Guadalupe White on 08-29-2024 Creatinine (U) [Mass/Vol] 173.00 mg/dL NO RANGE EST. [facility] Urine cultureOrdered By: Joann Anderson on 08-29-2024 Bacteria identified Cx Nom (U) Culture exhibits no growth. [facility] Urine culture Culture exhibits no growth. [facility] Urine glucose detectionOrder ed By: Luis Carlos Anderson on 08-29-2024 Glucose Ql (U) 50 mg/dl High Normal [facility] Urine ketones detection by t est stripOrdered By: Luis Carlos Anderson on 08-29-2024 Urine ketones detection by test strip Negative Negative [facility] Urine leukocyte esterase det ection by dipstickOrdered By: Luis Carlos Anderson on 08-29-2024 Leukocyte esterase Test strip Ql (U) 500 /ul High Negative [facility] Urine pHOrdered By: Luis Carlos hammond on 08-29-2024 pH (U) 6.0 [pH] 5.0 - 8.0 [facility] Urine sediment bacteria coun t by microscopy (number/high power field)Ordered By: Luis Carlos Anderson on 08-29-2024 Bacteria LM.HPF (Urine sed) [#/Area] RARE /hpf None Seen [facility] Urine specific gravity measu rementOrdered By: Luis Carlos Anderson on 08-29-2024 Specific gravity (U) [Rel density] 1.015 1.002-1.030 [facility] Urine total bilirubin detect ion by test stripOrdered By: Luis Carlos Anderson on 08-29-2024 Urine total bilirubin detection by test strip 1 mg/dL High Normal [facility] Urine urobilinogen measureme ntOrdered By: Luis Carlos Anderson on 08-29-2024 Urobilinogen Ql (U) 1 mg/dl High Normal [facility] Urobilinogen Ql (U)Ordered B y: Luis Carlos Anderson on 08-29-2024 Urobilinogen (U) [Mass/Vol] 1 mg/dL High Normal [facility] White blood cell countOrdere d By: Luis Carlos Anderson on 08-29-2024 Urine WBC 10-25 SEEN /hpf 0-5 [facility] White blood cell count 10-25 SEEN /hpf 0-5 [facility] White blood cell count 10-25 SEEN /hpf 0-5 [facility] aPTT Coag (PPP) [Time]Ordere d By: Luis Carlos Anderson on 08-29-2024 aPTT Coag (Bld) [Time] 40.9 s High 24.1-36.2 [facility] Activated partial thromboplastin time (aPTT) in platelet poor plasma by coagulation a 40.9 Seconds High 24.1-36.2 [facility] pH (U)Ordered By: Ashu on 08-29-2024 Urine pH 6.0 5.0 - 8.0 [facility] Vital Signs Date Time Vital Sign Value Performing Clinician Facility 04-10-2025 07:45-0400 Body temperature 98 [degF] [employer]y [employer] Work Phone: [facility] 04-10-2025 07:45-0400 Diastolic blood pressure 57 mm[Hg] Josy Elias [employer] Work Phone: [facility] 04-10-2025 07:45-0400 Heart rate 80 /min Josy Elias [employer] Work Phone: [facility] 04-10-2025 07:45-0400 Respiratory rate 16 /min Josy Elias [employer] Work Phone: [facility] 04-10-2025 07:45-0400 SaO2% (BldA) [Mass fraction] 98 % Josy Tannhof [employer] Work Phone: 7(614)[phone] [place] [address] 04-10-2025 07:45-0400 Systolic blood pressure 109 mm[Hg] Josy Baumannhof [employer] Work Phone: 9(628)508-850748 [place] [address] 04-10-2025 06:00-0400 Body mass index (BMI) [Ratio] 32 kg/m2 Josy Baumannhof [employer] Work Phone: 2(725)382-051651 [place] [address] 04-10-2025 06:00-0400 Body weight 98.1 kg Josydominique Baumannhof [employer] Work Phone: 1(724)632-390448 [place] [address] 04-08-2025 13:18-0400 Body height 175.26 cm Josy Obrienf [employer] Work Phone: 2(861)248-868148 [place] [address] 04-07-2025 22:05-0400 Body mass index (BMI) [Ratio] 33.3 kg/m2 Josy Obrienf [employer] Work Phone: 9(406)489-644348 [place] [address] 04-07-2025 22:05-0400 Body temperature 98 [degF] Josy Obrienf [employer] Work Phone: 6(468)188-967448 [place] [address] 04-07-2025 22:05-0400 Body weight 102.3 kg Josy Obrienf [employer] Work Phone: 7(893)180-265848 [place] [address] 04-07-2025 22:05-0400 Diastolic blood pressure 70 mm[Hg] Josy Obrienf [employer] Work Phone: 2(653)256-270648 [place] [address] 04-07-2025 22:05-0400 Heart rate 74 /min Josydominique Baumannhof [employer] Work Phone: 5(940)796-137748 [place] [address] 04-07-2025 22:05-0400 Respiratory rate 15 /min Josy Baumannhof [employer] Work Phone: 0(576)161-912648 [place] [address] 04-07-2025 22:05-0400 SaO2% (BldA) [Mass fraction] 100 % Josydominique Baumannhof [employer] Work Phone: 5(262)282-851848 [place] [address] 04-07-2025 22:05-0400 Systolic blood pressure 112 mm[Hg] Josydominique Baumannhof [employer] Work Phone: 7(402)917-485551 [place] [address] 04-07-2025 18:05-0400 Body height 175.26 cm Josydominique Baumannhof [employer] Work Phone: 4(220)441-634348 [place] [address] 04-03-2025 20:14-0400 Body temperature 97.8 [degF] Josy Tannhof [employer] Work Phone: 3(897)402-728851 [place] [address] 04-03-2025 20:14-0400 Diastolic blood pressure 83 mm[Hg] Josydominique Baumannhof [employer] Work Phone: 9(937)477-655748 [place] [address] 04-03-2025 20:14-0400 Heart rate 109 /min Josy Tannhof [employer] Work Phone: 4(126)697-580648 [place] [address] 04-03-2025 20:14-0400 Respiratory rate 20 /min Josydominique Baumannhof [employer] Work Phone: 6(670)772-280548 [place] [address] 04-03-2025 20:14-0400 SaO2% (BldA) [Mass fraction] 95 % Josydominique Baumannhof [employer] Work Phone: 7(691)174-709048 [place] [address] 04-03-2025 20:14-0400 Systolic blood pressure 117 mm[Hg] Josydominique Baumannhof [employer] Work Phone: 0(091)617-284848 [place] [address] 03-30-2025 13:05-0400 Body temperature 97.3 [degF] Josydominique Baumannhof [employer] Work Phone: 5(141)007-040551 [place] [address] 03-30-2025 13:05-0400 Diastolic blood pressure 63 mm[Hg] Josydominique Baumannhof [employer] Work Phone: 1(277)696-263248 [place] [address] 03-30-2025 13:05-0400 Heart rate 75 /min Josy Tannhof [employer] Work Phone: 5(720)097-484348 [place] [address] 03-30-2025 13:05-0400 Respiratory rate 16 /min Josy Tannhof [employer] Work Phone: 4(954)900-994148 [place] [address] 03-30-2025 13:05-0400 SaO2% (BldA) [Mass fraction] 100 % Josy Elias [employer] Work Phone: [facility] 03-30-2025 13:05-0400 Systolic blood pressure 102 mm[Hg] Josy Elias [employer] Work Phone: [facility] 03-30-2025 10:56-0400 Body mass index (BMI) [Ratio] 29.9 kg/m2 Josy Elias [employer] Work Phone: [facility] 03-30-2025 10:56-0400 Body weight 92 kg Josy Elias [employer] Work Phone: [facility] 03-11-2025 22:11-0400 Body temperature 98.1 [degF] No Primary Care Physician [facility] 03-11-2025 22:11-0400 Diastolic blood pressure 65 mm[Hg] No Primary Care Physician [facility] 03-11-2025 22:11-0400 Heart rate 70 /min No Primary Care Physician [facility] 03-11-2025 22:11-0400 Respiratory rate 16 /min No Primary Care Physician [facility] 03-11-2025 22:11-0400 SaO2% (BldA) [Mass fraction] 100 % No Primary Care Physician [facility] 03-11-2025 22:11-0400 Systolic blood pressure 98 mm[Hg] No Primary Care Physician [facility] 03-11-2025 17:10-0400 Body height 175.26 cm No Primary Care Physician [facility] 03-11-2025 17:10-0400 Body mass index (BMI) [Ratio] 29.8 kg/m2 No Primary Care Physician [facility] 03-11-2025 17:10-0400 Body weight 91.62 kg No Primary Care Physician [facility] 03-10-2025 14:16-0400 Body mass index (BMI) [Ratio] 29 kg/m2 No Primary Care Physician [facility] 03-10-2025 14:16-0400 Body weight 89.35 kg No Primary Care Physician [facility] 03-10-2025 14:16-0400 Diastolic blood pressure 59 mm[Hg] No Primary Care Physician [facility] 03-10-2025 14:16-0400 Heart rate 77 /min No Primary Care Physician [facility] 03-10-2025 14:16-0400 Respiratory rate 17 /min No Primary Care Physician [facility] 03-10-2025 14:16-0400 SaO2% (BldA) [Mass fraction] 99 % No Primary Care Physician [facility] 03-10-2025 14:16-0400 Systolic blood pressure 95 mm[Hg] No Primary Care Physician [facility] 03-04-2025 12:36-0400 Diastolic blood pressure 64 mm[Hg] No Primary Care Physician [facility] 03-04-2025 12:36-0400 Heart rate 68 /min No Primary Care Physician [facility] 03-04-2025 12:36-0400 Respiratory rate 16 /min No Primary Care Physician [facility] 03-04-2025 12:36-0400 Systolic blood pressure 103 mm[Hg] No Primary Care Physician [facility] 02-27-2025 14:46-0400 Body temperature 98.4 [degF] No Primary Care Physician [facility] 02-27-2025 14:46-0400 Diastolic blood pressure 67 mm[Hg] No Primary Care Physician [facility] 02-27-2025 14:46-0400 Heart rate 87 /min No Primary Care Physician [facility] 02-27-2025 14:46-0400 Respiratory rate 16 /min No Primary Care Physician [facility] 02-27-2025 14:46-0400 SaO2% (BldA) [Mass fraction] 96 % No Primary Care Physician [facility] 02-27-2025 14:46-0400 Systolic blood pressure 119 mm[Hg] No Primary Care Physician [facility] 02-26-2025 15:23-0400 Body weight 90.26 kg No Primary Care Physician [facility] 02-25-2025 11:36-0400 Body mass index (BMI) [Ratio] 31.9 kg/m2 No Primary Care Physician [facility] 02-17-2025 17:05-0400 Body temperature 98.2 [degF] No Primary Care Physician [facility] 02-17-2025 17:05-0400 Diastolic blood pressure 71 mm[Hg] No Primary Care Physician [facility] 02-17-2025 17:05-0400 Heart rate 74 /min No Primary Care Physician [facility] 02-17-2025 17:05-0400 Respiratory rate 16 /min No Primary Care Physician [facility] 02-17-2025 17:05-0400 SaO2% (BldA) [Mass fraction] 98 % No Primary Care Physician [facility] 02-17-2025 17:05-0400 Systolic blood pressure 123 mm[Hg] No Primary Care Physician [facility] 02-16-2025 19:56-0400 Body height 175.26 cm No Primary Care Physician [facility] 02-16-2025 19:56-0400 Body mass index (BMI) [Ratio] 31.1 kg/m2 No Primary Care Physician [facility] 02-16-2025 19:56-0400 Body weight 95.6 kg No Primary Care Physician [facility] 02-16-2025 19:34-0400 Body temperature 97.8 [degF] No Primary Care Physician [facility] 02-16-2025 19:34-0400 Diastolic blood pressure 61 mm[Hg] No Primary Care Physician [facility] 02-16-2025 19:34-0400 Heart rate 76 /min No Primary Care Physician [facility] 02-16-2025 19:34-0400 Respiratory rate 18 /min No Primary Care Physician [facility] 02-16-2025 19:34-0400 SaO2% (BldA) [Mass fraction] 96 % No Primary Care Physician [facility] 02-16-2025 19:34-0400 Systolic blood pressure 102 mm[Hg] No Primary Care Physician [facility] 02-16-2025 17:20-0400 Body height 175.26 cm No Primary Care Physician [facility] 02-13-2025 21:17-0400 Body temperature 98.8 [degF] No Primary Care Physician [facility] 02-13-2025 21:17-0400 Diastolic blood pressure 75 mm[Hg] No Primary Care Physician [facility] 02-13-2025 21:17-0400 Heart rate 59 /min No Primary Care Physician [facility] 02-13-2025 21:17-0400 Respiratory rate 16 /min No Primary Care Physician [facility] 02-13-2025 21:17-0400 SaO2% (BldA) [Mass fraction] 100 % No Primary Care Physician [facility] 02-13-2025 21:17-0400 Systolic blood pressure 97 mm[Hg] No Primary Care Physician [facility] 02-13-2025 16:30-0400 Body height 175.26 cm No Primary Care Physician [facility] 02-13-2025 16:30-0400 Body mass index (BMI) [Ratio] 33 kg/m2 No Primary Care Physician [facility] 02-13-2025 16:30-0400 Body weight 101.5 kg No Primary Care Physician [facility] 02-11-2025 12:35-0400 Diastolic blood pressure 55 mm[Hg] No Primary Care Physician [facility] 02-11-2025 12:35-0400 Heart rate 63 /min No Primary Care Physician [facility] 02-11-2025 12:35-0400 Respiratory rate 18 /min No Primary Care Physician [facility] 02-11-2025 12:35-0400 Systolic blood pressure 85 mm[Hg] No Primary Care Physician [facility] 02-11-2025 12:33-0400 Body temperature 97.3 [degF] No Primary Care Physician [facility] 02-08-2025 01:26-0400 Body temperature 97.6 [degF] No Primary Care Physician [facility] 02-08-2025 01:26-0400 Diastolic blood pressure 63 mm[Hg] No Primary Care Physician [facility] 02-08-2025 01:26-0400 Heart rate 62 /min No Primary Care Physician [facility] 02-08-2025 01:26-0400 Respiratory rate 18 /min No Primary Care Physician [facility] 02-08-2025 01:26-0400 SaO2% (BldA) [Mass fraction] 100 % No Primary Care Physician [facility] 02-08-2025 01:26-0400 Systolic blood pressure 97 mm[Hg] No Primary Care Physician [facility] 02-07-2025 22:20-0400 Body mass index (BMI) [Ratio] 34.8 kg/m2 No Primary Care Physician [facility] 02-07-2025 22:20-0400 Body weight 107.1 kg No Primary Care Physician [facility] 02-07-2025 19:24-0400 Body height 175.26 cm No Primary Care Physician [facility] 01-31-2025 18:35-0400 Body temperature 98.1 [degF] No Primary Care Physician [facility] 01-31-2025 18:35-0400 Diastolic blood pressure 86 mm[Hg] No Primary Care Physician [facility] 01-31-2025 18:35-0400 Heart rate 100 /min No Primary Care Physician [facility] 01-31-2025 18:35-0400 Respiratory rate 16 /min No Primary Care Physician [facility] 01-31-2025 18:35-0400 SaO2% (BldA) [Mass fraction] 100 % No Primary Care Physician [facility] 01-31-2025 18:35-0400 Systolic blood pressure 127 mm[Hg] No Primary Care Physician [facility] 01-31-2025 09:49-0400 Body height 182.88 cm No Primary Care Physician [facility] 01-31-2025 09:49-0400 Body weight 110.3 kg No Primary Care Physician [facility] 01-28-2025 09:46-0400 Body mass index (BMI) [Ratio] 33 kg/m2 No Primary Care Physician [facility] 01-28-2025 09:00-0400 Body temperature 98 [degF] No Primary Care Physician [facility] 01-28-2025 09:00-0400 Diastolic blood pressure 67 mm[Hg] No Primary Care Physician [facility] 01-28-2025 09:00-0400 Heart rate 106 /min No Primary Care Physician [facility] 01-28-2025 09:00-0400 Respiratory rate 15 /min No Primary Care Physician [facility] 01-28-2025 09:00-0400 SaO2% (BldA) [Mass fraction] 100 % No Primary Care Physician [facility] 01-28-2025 09:00-0400 Systolic blood pressure 125 mm[Hg] No Primary Care Physician [facility] 01-28-2025 02:56-0400 Body height 187.96 cm No Primary Care Physician [facility] 01-28-2025 02:56-0400 Body mass index (BMI) [Ratio] 31.7 kg/m2 No Primary Care Physician [facility] 01-28-2025 02:56-0400 Body weight 112.2 kg No Primary Care Physician [facility] 01-21-2025 13:00-0400 Body temperature 97.7 [degF] No Primary Care Physician [facility] 01-21-2025 13:00-0400 Diastolic blood pressure 60 mm[Hg] No Primary Care Physician [facility] 01-21-2025 13:00-0400 Heart rate 91 /min No Primary Care Physician [facility] 01-21-2025 13:00-0400 Respiratory rate 18 /min No Primary Care Physician [facility] 01-21-2025 13:00-0400 SaO2% (BldA) [Mass fraction] 97 % No Primary Care Physician [facility] 01-21-2025 13:00-0400 Systolic blood pressure 100 mm[Hg] No Primary Care Physician [facility] 01-21-2025 05:13-0400 Body mass index (BMI) [Ratio] 35.8 kg/m2 No Primary Care Physician [facility] 01-21-2025 05:13-0400 Body weight 110.1 kg No Primary Care Physician [facility] 01-17-2025 14:51-0400 Body height 175.26 cm No Primary Care Physician [facility] 01-09-2025 14:01-0400 Heart rate 69 /min No Primary Care Physician [facility] 01-09-2025 14:01-0400 Respiratory rate 16 /min No Primary Care Physician [facility] 01-09-2025 14:01-0400 SaO2% (BldA) [Mass fraction] 100 % No Primary Care Physician [facility] 01-09-2025 14:00-0400 Diastolic blood pressure 59 mm[Hg] No Primary Care Physician [facility] 01-09-2025 14:00-0400 Systolic blood pressure 107 mm[Hg] No Primary Care Physician [facility] 01-09-2025 13:04-0400 Body temperature 98 [degF] No Primary Care Physician [facility] 01-09-2025 10:10-0400 Body height 175.26 cm No Primary Care Physician [facility] 01-09-2025 10:10-0400 Body mass index (BMI) [Ratio] 29.5 kg/m2 No Primary Care Physician [facility] 01-09-2025 10:10-0400 Body weight 90.6 kg No Primary Care Physician [facility] 01-05-2025 16:00-0400 Body temperature 98.1 [degF] No Primary Care Physician [facility] 01-05-2025 16:00-0400 Diastolic blood pressure 60 mm[Hg] No Primary Care Physician [facility] 01-05-2025 16:00-0400 Heart rate 73 /min No Primary Care Physician [facility] 01-05-2025 16:00-0400 Respiratory rate 16 /min No Primary Care Physician [facility] 01-05-2025 16:00-0400 SaO2% (BldA) [Mass fraction] 94 % No Primary Care Physician [facility] 01-05-2025 16:00-0400 Systolic blood pressure 103 mm[Hg] No Primary Care Physician [facility] 01-05-2025 04:44-0400 Body mass index (BMI) [Ratio] 29.9 kg/m2 No Primary Care Physician [facility] 01-05-2025 04:44-0400 Body weight 92.2 kg No Primary Care Physician [facility] 01-02-2025 10:11-0400 Body height 175.26 cm No Primary Care Physician [facility] 01-02-2025 06:34-0400 Body temperature 97.8 [degF] No Primary Care Physician [facility] 01-02-2025 06:34-0400 Diastolic blood pressure 73 mm[Hg] No Primary Care Physician [facility] 01-02-2025 06:34-0400 Heart rate 68 /min No Primary Care Physician [facility] 01-02-2025 06:34-0400 Respiratory rate 20 /min No Primary Care Physician [facility] 01-02-2025 06:34-0400 SaO2% (BldA) [Mass fraction] 100 % No Primary Care Physician [facility] 01-02-2025 06:34-0400 Systolic blood pressure 105 mm[Hg] No Primary Care Physician [facility] 01-02-2025 02:59-0400 Body height 175.26 cm No Primary Care Physician [facility] 01-02-2025 02:59-0400 Body mass index (BMI) [Ratio] 27.5 kg/m2 No Primary Care Physician [facility] 01-02-2025 02:59-0400 Body weight 84.5 kg No Primary Care Physician [facility] 12-30-2024 05:24-0400 Body temperature 97.9 [degF] No Primary Care Physician [facility] 12-30-2024 05:24-0400 Diastolic blood pressure 52 mm[Hg] No Primary Care Physician [facility] 12-30-2024 05:24-0400 Heart rate 71 /min No Primary Care Physician [facility] 12-30-2024 05:24-0400 Respiratory rate 18 /min No Primary Care Physician [facility] 12-30-2024 05:24-0400 SaO2% (BldA) [Mass fraction] 93 % No Primary Care Physician [facility] 12-30-2024 05:24-0400 Systolic blood pressure 93 mm[Hg] No Primary Care Physician [facility] 12-30-2024 01:07-0400 Body height 175.26 cm No Primary Care Physician [facility] 12-30-2024 01:07-0400 Body mass index (BMI) [Ratio] 28.4 kg/m2 No Primary Care Physician [facility] 12-30-2024 01:07-0400 Body weight 87.3 kg No Primary Care Physician [facility] 12-26-2024 14:27-0400 Body temperature 97 [degF] No Primary Care Physician [facility] 12-26-2024 14:27-0400 Diastolic blood pressure 58 mm[Hg] No Primary Care Physician [facility] 12-26-2024 14:27-0400 Heart rate 64 /min No Primary Care Physician [facility] 12-26-2024 14:27-0400 Respiratory rate 16 /min No [facility] [facility] 12-26-2024 14:27-0400 SaO2% (BldA) [Mass fraction] 97 % No Primary Care Physician [facility] 12-26-2024 14:27-0400 Systolic blood pressure 90 mm[Hg] No Primary Care Physician [facility] 12-26-2024 10:00-0400 Body height 175.26 cm No Primary Care Physician [facility] 12-26-2024 10:00-0400 Body mass index (BMI) [Ratio] 29.7 kg/m2 No Primary Care Physician [facility] 12-26-2024 10:00-0400 Body weight 91.4 kg No Primary Care Physician [facility] 12-02-2024 12:13-0400 Body temperature 98.7 [degF] No Primary Care Physician [facility] 12-02-2024 12:13-0400 Diastolic blood pressure 68 mm[Hg] No Primary Care Physician [facility] 12-02-2024 12:13-0400 Heart rate 86 /min No Primary Care Physician [facility] 12-02-2024 12:13-0400 Respiratory rate 18 /min No Primary Care Physician [facility] 12-02-2024 12:13-0400 SaO2% (BldA) [Mass fraction] 97 % No Primary Care Physician [facility] 12-02-2024 12:13-0400 Systolic blood pressure 117 mm[Hg] No Primary Care Physician [facility] 12-02-2024 02:57-0400 Body mass index (BMI) [Ratio] 33 kg/m2 No Primary Care Physician [facility] 12-02-2024 02:57-0400 Body weight 101.6 kg No Primary Care Physician [facility] 11-29-2024 09:53-0400 Body height 175.26 cm No Primary Care Physician [facility] 11-25-2024 18:31-0400 Body temperature 98.2 [degF] No Primary Care Physician [facility] 11-25-2024 18:31-0400 Diastolic blood pressure 80 mm[Hg] No Primary Care Physician [facility] 11-25-2024 18:31-0400 Heart rate 97 /min No Primary Care Physician [facility] 11-25-2024 18:31-0400 Respiratory rate 18 /min No Primary Care Physician [facility] 11-25-2024 18:31-0400 SaO2% (BldA) [Mass fraction] 98 % No Primary Care Physician [facility] 11-25-2024 18:31-0400 Systolic blood pressure 122 mm[Hg] No Primary Care Physician [facility] 11-24-2024 15:17-0400 Body weight 102.7 kg No Primary Care Physician [facility] 11-21-2024 05:32-0400 Body mass index (BMI) [Ratio] 33.4 kg/m2 No Primary Care Physician [facility] 11-21-2024 05:00-0400 Heart rate 77 /min No Primary Care Physician [facility] 11-21-2024 04:51-0400 Body temperature 98.2 [degF] No Primary Care Physician [facility] 11-21-2024 04:51-0400 Diastolic blood pressure 57 mm[Hg] No Primary Care Physician [facility] 11-21-2024 04:51-0400 Respiratory rate 16 /min No Primary Care Physician [facility] 11-21-2024 04:51-0400 SaO2% (BldA) [Mass fraction] 97 % No Primary Care Physician [facility] 11-21-2024 04:51-0400 Systolic blood pressure 127 mm[Hg] No Primary Care Physician [facility] 11-21-2024 01:32-0400 Body height 175.26 cm No Primary Care Physician [facility] 11-21-2024 01:32-0400 Body mass index (BMI) [Ratio] 34.3 kg/m2 No Primary Care Physician [facility] 11-21-2024 01:32-0400 Body weight 105.4 kg No Primary Care Physician [facility] 11-12-2024 18:03-0400 SaO2% (BldA) [Mass fraction] 99 % KATHIE LEMOS [facility] Comment on above: Order Comment: Specimen Type: ARTERIAL B LOOD SPECIMENOrdering Facility: [facility] Address: [address] [place] [address] Performed By: #### A LLBG ####[facility] LABCLIA [id number] [place] [address] [place] 11-10-2024 23:40-0400 Body temperature 97.8 [degF] No Primary Care Physician [facility] 11-10-2024 23:40-0400 Diastolic blood pressure 70 mm[Hg] No Primary Care Physician [facility] 11-10-2024 23:40-0400 Heart rate 110 /min No Primary Care Physician [facility] 11-10-2024 23:40-0400 Respiratory rate 18 /min No Primary Care Physician [facility] 11-10-2024 23:40-0400 SaO2% (BldA) [Mass fraction] 97 % No Primary Care Physician [facility] 11-10-2024 23:40-0400 Systolic blood pressure 116 mm[Hg] No Primary Care Physician [facility] 11-10-2024 04:54-0400 Body mass index (BMI) [Ratio] 36.7 kg/m2 No Primary Care Physician [facility] 11-10-2024 04:54-0400 Body weight 112.8 kg No Primary Care Physician [facility] 11-09-2024 14:30-0400 Body height 175.26 cm No Primary Care Physician [facility] 10-29-2024 01:23-0400 Body temperature 97.4 [degF] No Primary Care Physician [facility] 10-29-2024 01:23-0400 Diastolic blood pressure 54 mm[Hg] No Primary Care Physician [facility] 10-29-2024 01:23-0400 Heart rate 77 /min No Primary Care Physician [facility] 10-29-2024 01:23-0400 Respiratory rate 14 /min No Primary Care Physician [facility] 10-29-2024 01:23-0400 SaO2% (BldA) [Mass fraction] 97 % No Primary Care Physician [facility] 10-29-2024 01:23-0400 Systolic blood pressure 97 mm[Hg] No Primary Care Physician [facility] 10-28-2024 21:43-0400 Body mass index (BMI) [Ratio] 30.4 kg/m2 No Primary Care Physician [facility] 10-28-2024 21:43-0400 Body weight 93.1 kg No Primary Care Physician [facility] 10-28-2024 17:13-0400 Body height 175.01 cm No Primary Care Physician [facility] 10-04-2024 21:45-0500 Diastolic blood pressure 89 mm[Hg] Maurice wen MD Work Phone: [facility] 10-04-2024 21:45-0500 Heart rate 94 /min Maurice Fitch MD Work Phone: [facility] 10-04-2024 21:45-0500 Respiratory rate 18 /min Maurice Fitch MD Work Phone: [facility] 10-04-2024 21:45-0500 SaO2% (BldA) [Mass fraction] 100 % Maurice Fitch MD Work Phone: [facility] 10-04-2024 21:45-0500 Systolic blood pressure 152 mm[Hg] Maurice parada MD Work Phone: [facility] 10-04-2024 12:03-0500 Body temperature 97.59 [degF] Maurice Fitch MD Work Phone: [facility] 10-04-2024 12:03-0500 Body weight 117.48 kg Maurice Fitch MD Work Phone: [facility] 09-29-2024 10:21-0500 Body temperature 97.3 [degF] No Primary Care Physician [facility] 09-29-2024 10:21-0500 Diastolic blood pressure 74 mm[Hg] No Primary Care Physician [facility] 09-29-2024 10:21-0500 Heart rate 81 /min No Primary Care Physician [facility] 09-29-2024 10:21-0500 Respiratory rate 18 /min No Primary Care Physician [facility] 09-29-2024 10:21-0500 Systolic blood pressure 138 mm[Hg] No Primary Care Physician [facility] 09-15-2024 03:49-0500 Body temperature 97.8 [degF] No Primary Care Physician [facility] 09-15-2024 03:49-0500 Diastolic blood pressure 70 mm[Hg] No Primary Care Physician [facility] 09-15-2024 03:49-0500 Heart rate 80 /min No Primary Care Physician [facility] 09-15-2024 03:49-0500 Respiratory rate 17 /min No Primary Care Physician [facility] 09-15-2024 03:49-0500 SaO2% (BldA) [Mass fraction] 96 % No Primary Care Physician [facility] 09-15-2024 03:49-0500 Systolic blood pressure 142 mm[Hg] No Primary Care Physician [facility] 09-14-2024 04:07-0500 Body mass index (BMI) [Ratio] 36.7 kg/m2 No Primary Care Physician [facility] 09-14-2024 04:07-0500 Body weight 112.8 kg No Primary Care Physician [facility] 09-10-2024 14:03-0500 Body height 175.26 cm No Primary Care Physician [facility] 09-07-2024 01:24-0500 Inhaled oxygen concentration 21 % No Primary Care Physician [facility] 09-06-2024 05:00-0500 Inhaled oxygen flow rate 8 L/min No Primary Care Physician [facility] 09-02-2024 15:36-0500 Body weight 104 kg No Primary Care Physician [facility] 09-02-2024 14:54-0500 Body temperature 98.1 [degF] No Primary Care Physician [facility] 09-02-2024 14:54-0500 Diastolic blood pressure 62 mm[Hg] No Primary Care Physician [facility] 09-02-2024 14:54-0500 Heart rate 60 /min No Primary Care Physician [facility] 09-02-2024 14:54-0500 Respiratory rate 18 /min No Primary Care Physician [facility] 09-02-2024 14:54-0500 SaO2% (BldA) [Mass fraction] 99 % No Primary Care Physician [facility] 09-02-2024 14:54-0500 Systolic blood pressure 118 mm[Hg] No Primary Care Physician [facility] 09-02-2024 03:57-0500 Body mass index (BMI) [Ratio] 33.8 kg/m2 No Primary Care Physician [facility] 08-21-2024 16:33-0500 Body temperature 98.5 [degF] No Primary Care Physician [facility] 08-21-2024 16:33-0500 Diastolic blood pressure 78 mm[Hg] No Primary Care Physician [facility] 08-21-2024 16:33-0500 Heart rate 61 /min No Primary Care Physician [facility] 08-21-2024 16:33-0500 Respiratory rate 12 /min No Primary Care Physician [facility] 08-21-2024 16:33-0500 SaO2% (BldA) [Mass fraction] 97 % No Primary Care Physician [facility] 08-21-2024 16:33-0500 Systolic blood pressure 114 mm[Hg] No Primary Care Physician [facility] 08-21-2024 13:52-0500 Body mass index (BMI) [Ratio] 33 kg/m2 No Primary Care Physician [facility] 08-21-2024 13:52-0500 Body weight 101.5 kg No Primary Care Physician [facility] Encounters Encounter Date Encounter Type Care Provider Facility Start: 04-18-2025 ambulatory [facility] Facility :[facility] Start: 04-18-2025 End: 04-20-2025 Evaluation and management of inpatient [facility] Facility:[facility] Start: 04-10-2025 Dr. Anurag Irene MD [facility] Work Phone: Start: 04-09-2025 Dr. Anurag Irene MD [facility] Work Phone: Start: 04-08-2025 Dr. Maria Guadalupe Shore MD - [facility] Work Phone: Start: 04-07-2025 Evaluation [facility] [employer] Work Phone: -Medical Surgical 3 Start: 04-07-2025 Dr. Maria Guadalupe Shore MD - Medical Surgical 3 Work Phone: Start: 04-07-2025 End: 04-10-2025 [facility] [employer] Work Phone: -Medical Surgical 3 Start: 04-07-2025 ambulatory [facility] Facility :[facility] Start: 04-07-2025 End: 04-10-2025 Dr. Maria Guadalupe Shore MD -[facility] Work Phone: Start: 04-03-2025 End: 04-03-2025 [facility] [employer] Work Phone: -Emergency Department Work Phone: Start: 04-03-2025 End: 04-03-2025 Emergency department patient visit Josy Elias Facility:[facility] Start: 03-30-2025 End: 03-30-2025 Dr. Roby Balderas MD -Surgical Day Care Start: 03-30-2025 End: 03-30-2025 ambulatory Roby Balderas Facility:[facility] Start: 03-25-2025 ambulatory Anurag Irene Facility: [facility] Start: 03-16-2025 ambulatory Nelida Harris Facili ty:[facility] Start: 03-11-2025 End: 03-11-2025 No Primary Care Physician -Emergency Department Work Phone: Start: 03-11-2025 End: 03-11-2025 Emergency department patient visit No Primary Care Physician -Emergency Department Start: 03-10-2025 End: 03-10-2025 Dr. Roby Balderas MD -[facility] Work Phone: Start: 03-10-2025 End: 03-10-2025 ambulatory Roby Balderas Facility:[facility] Start: 03-04-2025 End: 03-04-2025 No Primary Care Physician -Ultrasound [facility] Work Phone: Start: 03-04-2025 End: 03-04-2025 ambulatory COLTON ANDERSON Facility:[facility] Start: 02-27-2025 Dr. Rick gutierrez DO -[facility] Work Phone: Start: 02-26-2025 Dr. Rick gutierrez DO -[facility] Work Phone: Start: 02-25-2025 Niranjan Li DO -[facility] Start: 02-25-2025 End: 02-27-2025 ambulatory Kathie Lemos Facility:[facility] Start: 02-25-2025 End: 02-27-2025 Dr. Rick Carlin DO -Progressive Care Unit Work Phone: Start: 02-24-2025 End: 02-25-2025 Julita Glover -[facility] Work Phone: Start: 02-24-2025 End: 02-25-2025 ambulatory Josy Elias Facility:[facility] Start: 02-17-2025 Niranjan Li DO -[facility] Start: 02-17-2025 Dr. Anurag Irene MD -[facility] In[facility] Work Phone: Start: 02-16-2025 End: 02-17-2025 ambulatory Jae Ash Facility:[facility] Start: 02-16-2025 Evaluation and manag ement of inpatient No Primary Care Physician -Medical Surgical 3 Start: 02-16-2025 End: 02-17-2025 Dr. Jae Ash DO -Medical Surgical 3 Work Phone: Start: 02-16-2025 End: 02-16-2025 Dr. Jerald Sherwood MD -Laboratory [facility] Start: 02-16-2025 End: 02-16-2025 ambulatory Jearld Sherwood Facility:[facility] Start: 02-14-2025 ambulatory NONE PHYSICIAN Facility :[facility] Start: 02-13-2025 End: 02-13-2025 No Primary Care Physician -Emergency Department Work Phone: Start: 02-13-2025 End: 02-13-2025 Emergency department patient visit No Primary Care Physician -Emergency Department Start: 02-11-2025 End: 02-11-2025 ambulatory No Primary Care Physician -Ultrasound [facility] Start: 02-11-2025 End: 02-11-2025 Mina Blood DO -Ultrasound [facility] Work Phone: Start: 02-11-2025 End: 02-11-2025 ambulatory Mina Blood Facility:[facility] Start: 02-07-2025 End: 02-08-2025 No Primary Care Physician -Emergency Department Work Phone: Start: 02-07-2025 End: 02-08-2025 Emergency department patient visit No Primary Care Physician -Emergency Department Start: 01-31-2025 Dr. Yaritza Leo DO -[facility] Work Phone: Start: 01-30-2025 Dr. Yaritza Leo DO -[facility] Work Phone: Start: 01-29-2025 Dr. Yaritza Leo DO [facility] Inpatient Physicians Work Phone: Start: 01-28-2025 ambulatory Boone Izquierdo Facility:[facility] Start: 01-28-2025 End: 01-31-2025 Evaluation and management of inpatient No Primary Care Physician [facility] Work Phone: Start: 01-28-2025 End: 01-31-2025 Dr. Boone Izquierdo [facility] In[facility] Work Phone: Start: 01-21-2025 Dr. Anurag Irene MD [facility] Work Phone: Start: 01-20-2025 Dr. Anurag Irene MD [facility] Work Phone: Start: 01-19-2025 Dr. Anurag Irene MD [facility] Work Phone: Start: 01-18-2025 Dr. Anurag Irene MD [facility] Work Phone: Start: 01-17-2025 Dr. Anurag Irene MD [facility] Work Phone: Start: 01-16-2025 Dr. Cielo Tovar MD [facility] Work Phone: Start: 01-15-2025 Dr. Cielo Tovar MD [facility] Work Phone: Start: 01-14-2025 Dr. Cielo Tovar MD [facility] Work Phone: Start: 01-13-2025 Dr. Cielo Tovar MD [facility] Work Phone: Start: 01-12-2025 Dr. Cielo Tovar MD [facility] Work Phone: Start: 01-11-2025 Dr. Jefferson Malave MD [facility] Start: 01-11-2025 Dr. Cielo Tovar MD - [facility] Work Phone: Start: 01-11-2025 Dr. Bola Meraz DO -[facility] -PM Start: 01-10-2025 Dr. Cielo Tovar MD - [facility] Work Phone: Start: 01-09-2025 ambulatory Cielo Tovar Facility :[facility] Start: 01-09-2025 End: 01-21-2025 Evaluation and management of inpatient No Primary Care Physician [facility] Work Phone: Start: 01-09-2025 End: 01-21-2025 Dr. Yaritza Leo DO -Intensive Care Unit Work Phone: Start: 01-05-2025 Dr. Hill Acuña MD [facility] Work Phone: Start: 01-04-2025 Dr. Hill Acuña MD - [facility] Work Phone: Start: 01-03-2025 Dr. Hill Acuña MD - [facility] Work Phone: Start: 01-02-2025 [facility] Start: 01-02-2025 End: 01-05-2025 Evaluation and management of inpatient No Primary Care Physician [facility] Work Phone: Start: 01-02-2025 End: 01-05-2025 Dr. Buster Fuchs MD -Progressive Care Unit Work Phone: Start: 12-30-2024 End: 12-30-2024 No Primary Care Physician -Emergency Department Work Phone: Start: 12-30-2024 End: 12-30-2024 Emergency department patient visit No Primary Care Physician [facility] Work Phone: Start: 12-26-2024 End: 12-26-2024 No Primary Care Physician -Emergency Department Work Phone: Start: 12-26-2024 End: 12-26-2024 Emergency department patient visit No Primary Care Physician [facility] Work Phone: Start: 12-15-2024 End: 12-15-2024 ambulatory No Primary Care Physician [facility] Work Phone: Start: 12-15-2024 End: 12-15-2024 Josy Elias [employer] -Ultrasound [facility] Work Phone: Start: 12-15-2024 End: 12-15-2024 ambulatory [facility] Facility:[facility] Start: 12-07-2024 End: 12-10-2024 ambulatory Eva Pichardo MD Work Phone: Urology Start: 12-07-2024 End: 12-07-2024 Josy Elias [employer]PER[employer]ENT[employer]C -Laboratory, [facility] Start: 12-07-2024 End: 12-07-2024 ambulatory [facility] Facility:[facility] Start: 12-02-2024 Dr. Hill Acuña [...] Evaluation and management of inpatient Kathie Lemos Facility:[facility] Start: 11-28-2024 End: 12-02-2024 Dr. Hill Acuña MD -Progressive Care Unit Work Phone: Start: 11-25-2024 Dr. Anurag Irene MD -[facility] In[facility] Physicians Work Phone: Start: 11-24-2024 Dr. Anurag Irene MD -[facility] In[facility] Phys[facility] Work Phone: Start: 11-23-2024 ambulatory Jae Ash Fac ility:[facility] Start: 11-23-2024 End: 11-25-2024 Evaluation and management of inpatient Jae Ash Facility:[facility] Start: 11-23-2024 End: 11-25-2024 Dr. Anurag Irene MD -Medical Surgical 3 Work Phone: Start: 11-22-2024 Dr. Anurag Irene MD -[facility] Work Phone: Start: 11-21-2024 ambulatory Jae Ash Fac ility:[facility] Start: 11-21-2024 observation encounter No Prima Care Physician [facility] Work Phone: Start: 11-21-2024 Dr. Jae Ash DO -Medical Surgical 3 Work Phone: Start: 11-18-2024 Patient encounter status Jeremi Abreu RN Work Phone: [facility] Work Phone: Start: 11-18-2024 End: 11-18-2024 Telephone encounter Jeremi Abreu RN Work Phone: Transplant Center Comment on above: Outcome Liver Transp lant Selection Committee Start: 11-15-2024 End: 11-15-2024 Evaluation and management of inpatient Izabela Estuardo Candice DDS Work Phone: Dentistry Comment on above: Liver transplant can didate (Primary Dx); Pre-operative clearance Start: 11-15-2024 End: 11-15-2024 Preoperative state Izabela Marte Candice DDS Work Phone: [facility] Start: 11-15-2024 End: 11-15-2024 Social Work Marah Arauz [employer]IT[employer] Work Phone: Transplant Center Start: 11-12-2024 End: 11-12-2024 [facility] Start: 11-12-2024 End: 11-12-2024 Orders Only Liver Txp Coordinator Work Phone: Transplant Center Comment on above: Metabolic dysfunctio n-associated steatohepatitis (MASH) (Primary Dx) Transplant Evaluatio n Consent Patient Education (T ransplant) Liver transplant can didate (Primary Dx); Metabolic dysfunction-associated steatohepatitis (MASH) Start: 11-11-2024 End: 11-18-2024 Evaluation and management of inpatient KATHIE LEMOS Facility:[facility] Start: 11-10-2024 Dr. Kathie Lemos MD [...] Phone: Start: 11-01-2024 Dr. Hill Acuña MD [facility] Work Phone: Start: 11-01-2024 Niranjan [facility] Start: 10-31-2024 Dr. Buster Fuentes Inpatient Physicians Work Phone: Start: 10-30-2024 Niranjan [facility] -[facility] Start: 10-30-2024 Dr. Buster Fuentes Inpatient Physicians Work Phone: Start: 10-29-2024 Dr. Bola Meraz DO -[facility] -[facility] Start: 10-29-2024 ambulatory Kathie Lemos [facility] Start: 10-29-2024 End: 11-11-2024 Evaluation and management of inpatient Dr. Hill Caro DO -Intensive Care Unit Work Phone: Start: 10-29-2024 End: 11-11-2024 Dr. Kathie Lemos MD -Progressive Care Unit Work Phone: Start: 10-19-2024 ambulatory [facility] Facility:[facility] Start: 10-04-2024 End: 10-04-2024 Emergency department patient visit MAURICE FITCH [facility] Emergency Medicine Comment on above: Other ascites (Prima ry Dx); Abdominal pain, generalized; Other cirrhosis of liver; Peripheral edema; Coagulopathy (Multi); Hyperbilirubinemia; Cirrhosis of liver with ascites, unspecified hepatic cirrhosis type (Multi) Start: 09-29-2024 ambulatory [facility] Facility:[facility] Start: 09-29-2024 Non-patient / Non-visit Jasmine nunez [employer] SUPERINTENDENT-C -[facility] Start: 09-29-2024 Jasmine Morocho [employer] SUPERINTENDENT-C - [facility] Start: 09-29-2024 End: 09-29-2024 ambulatory No Primary Care Physician [facility] Work Phone: Start: 09-29-2024 End: 09-29-2024 Patient encounter procedure No Primary Care Physician -Ultrasound, [facility] Work Phone: Start: 09-29-2024 End: 09-29-2024 No Primary Care Physician -Ultrasound, [facility] Work Phone: Start: 09-29-2024 End: 09-29-2024 ambulatory [facility] Facility:[facility] Start: 09-14-2024 Non-patient / Non-visit Dr. Boone floyd [facility] Inpatient Physicians Work Phone: Start: 09-14-2024 Dr. Boone Izquierdo [facility] Inpatient Physicians Work Phone: Start: 09-13-2024 Non-patient / Non-visit Dr. Boone floyd [facility] In[facility] Work Phone: Start: 09-13-2024 Dr. Boone Izquierdo [facility] Inpatient Physicians Work Phone: Start: 09-12-2024 Non-patient / Non-visit Dr. Slaughter [facility] Inpatient Physicians Work Phone: Start: 09-12[facility] Start: 09-11-2024 Non-patient / [facility] Work Phone: Start: 09-11-2024 [facility] Work Phone: Start: 09-10-2024 Non-patient / [facility] Work Phone: Start: 09-10-2024 [facility] Work Phone: Start: 09-09-2024 Non-patient / Non-visit Dr. Slaughter [facility] Work Phone: Start: 09-09-2024 [facility] Work Phone: Start: 09-08-2024 Non-patient / Non-[facility] Work Phone: Start: 09-08-2024 [facility] Work [facility]: Start: 09-07-2024 Non-patient / Non-visit Dr. [facility] Work Phone: Start: 09-07-2024 Dr. Anurag Murray [facility] Inpatient Physicians Work Phone: Start: 09-06-2024 Non-patient / Non-visit Dr. Anurag [facility] Work Phone: Start: 09-06-2024 Dr. Anurag Irene MD -[facility] In[facility] Work Phone: Start: 09-05-2024 ambulatory [facility] Mot[place] ty:[facility] Start: 09-05-2024 End: 09-15-2024 Evaluation and management of inpatient Dr. Boone Izquierdo -Progressive Care Unit Work Phone: Start: 09-05-2024 End: 09-15-2024 Dr. Boone Izquierdo [facility] Care Unit Work Phone: Start: 09-02-2024 Non-patient / Non-visit Dr. Lissette Carlin [facility] Inpatient Physicians Work Phone: Start: 09-02-2024 Dr. Rick gutierrez DO [facility] Inpatient Physicians Work Phone: Start: 09-01-2024 Non-patient / Non-visit Niranjan Frie nd DO -[facility] Start: 09-01-2024 Niranjan Friend DO -[facility] Start: 09-01-2024 Non-patient / Non-visit Dr. Lissette Carlin [facility] Work Phone: Start: 09-01-2024 Dr. Rick gutierrez [facility] Work Phone: Start: 08-31-2024 Non-patient / Non-visit Niranjan Frie nd DO -[facility] Start: 08-31-2024 Niranjan Friend DO -[facility] Start: 08-31-2024 Non-patient / Non-visit Dr. Lissette Carlin [facility] Work Phone: Start: 08-31-2024 Dr. Rick gutierrez [facility] Work Phone: Start: 08-31-2024 Non-patient / Non-visit Dr. Bola mills DO -[facility] Start: 08-31-2024 Dr. Bola Meraz DO -[facility] Start: 08-30-2024 Non-patient / Non-visit Niranjan Sharyn isha DO -[facility] Start: 08-30-2024 Niranjan Jen DO -[facility] Start: 08-30-2024 Non-patient / Non-visit Dr. Lissette Carlin [facility] Work Phone: Start: 08-30-2024 Dr. Rick gutierrez [facility] Work Phone: Start: 08-30-2024 Non-patient / Non-visit Dr. Bola mills DO -[facility] Start: 08-30-2024 Dr. Bola Meraz [facility] Start: 08-29-2024 ambulatory [facility] Facility :[facility] Start: 08-29-2024 End: 09-02-2024 Evaluation and management of inpatient Dr. Rick Carlin DO -Intensive Care Unit Work Phone: Start: 08-29-2024 End: 09-02-2024 [facility] Start: 08-21-2024 End: 08-21-2024 Dr. Danny Hutton DO -Emergency Department Work Phone: Start: 08-21-2024 End: 08-21-2024 Emergency department patient visit Dr. Danny Hutton DO -Emergency Department Work Phone: Procedures Date Procedure Procedure Detail Performing Clinician Start: 04-10-2025 Blood count smear mc rscp w/mnl difrntl wbc count Josy Elias [employer]CRA[employer] LOADMASTER SUPERINTENDENT-C Work Phone: Start: 04-10-2025 Estimated creatinine clearance Josy Elias [employer]CRA[employer] LOADMASTER SUPERINTENDENT-C Work Phone: Start: 04-10-2025 Mean corpuscular hem oglobin concentration determination Josy Elias [employer]CRA[employer] LOADMASTER SUPERINTENDENT-C Work Phone: Start: 04-10-2025 Nucleated red blood cell count procedure Josy Tannhof [employer]CRA[employer] LOADMASTER SUPERINTENDENT-C Work Phone: Start: 04-10-2025 Platelet mean volume determination Josy Elias [employer]CRAFT LOADMASTER SUPERINTENDENT-C Work Phone: Start: 04-09-2025 Urine microscopy: red cells Josy Elias AIRCRAFT LOADMASTER SUPERINTENDENT-C Work Phone: Start: 04-09-2025 Urnls dip stick/tabl et reagent auto microscopy Josy Elias AIRCRAFT LOADMASTER SUPERINTENDENT-C Work Phone: Start: 04-07-2025 Urine microscopy: red cells Josy Elias AIRCRAFT LOADMASTER SUPERINTENDENT-C Work Phone: Start: 04-07-2025 Urnls dip stick/tabl et reagent auto microscopy Josy Elias AIRCRAFT LOADMASTER SUPERINTENDENT-C Work Phone: Start: 04-07-2025 Blood count smear mc rscp w/mnl difrntl wbc count Josy Obrienf AIRCRAFT LOADMASTER SUPERINTENDENT-C Work Phone: Start: 04-07-2025 Mean corpuscular hem oglobin concentration determination Josy Obrien AIRCRAFT LOADMASTER SUPERINTENDENT-C Work Phone: Start: 04-07-2025 Nucleated red blood cell count procedure Josy Obrien AIRCRAFT LOADMASTER SUPERINTENDENT-C Work Phone: Start: 04-07-2025 Platelet mean volume determination Josy Elias AIRCRAFT LOADMASTER SUPERINTENDENT-C Work Phone: Start: 04-07-2025 Serum inorganic phos phate measurement Josy Baumannf AIRCRAFT LOADMASTER SUPERINTENDENT-C Work Phone: Start: 04-07-2025 Triacylglycerol lipa se measurement Josy Obrien AIRCRAFT LOADMASTER SUPERINTENDENT-C Work Phone: Start: 04-07-2025 Nucleic acid assay [facility] AIR[employer]FT LOADMASTER SUPERINTENDENT-C Work Phone: Start: 04-07-2025 Sars-cov-2 Josy Day nhof AIRCRAFT LOADMASTER SUPERINTENDENT-C Work Phone: Start: 04-07-2025 Urine culture Josy tongf AIRCRAFT LOADMASTER SUPERINTENDENT-C Work Phone: Start: 03-11-2025 Blood count smear [...] Physician Start: 01-28-2025 Assay of lactate No [facility] Care Physician Start: 01-28-2025 Computed [...] Physician Start: 11-18-2024 Antibody screen KATHIE P IERCKarma Comment on above: Order Comment: Speci men Type: BLOOD SPECIMENOrdering Facility: [facility] Address: [address] [place] [address] Performed By: #### T SCR ####CC MAIN BLOOD BANKCLIA [id number] [address] [place] Start: 11-16-2024 End: 11-16-2024 Colonoscopy Jeremi Abreu RN Work Phone: Start: 11-15-2024 Antibody screen KATHIE P IERCE Comment on above: Order Comment: Speci men Type: BLOOD SPECIMENOrdering Facility: [facility] Address: [address] [place] [address] Performed By: #### T SCR ####CC MAIN BLOOD BANKCLIA [id number] [address] [place] Start: 11-13-2024 Lipid 1996 panel - S sandie or Plasma Marah Arauz IMITATION MARBLE MECHANIC Work Phone: Start: 11-12-2024 Antibody screen KATHIE Alcaraz KAMALASABIHA Comment on above: Order Comment: Speci men Type: BLOOD SPECIMENOrdering Facility: [facility] Address: [address] [place] [address] Performed By: #### T SCR ####CC MAIN BLOOD BANKCLIA [id number] [facility] [id number] [facility] Start: 11-10-2024 Urine microscopy: red cells No [...] Start: 10-30-2024 Nucleic acid assay No P [facility] Care Physician Start: 10-30-2024 [facility] OR [...] Physician Start: 10-29-2024 Oxygen measurement No [facility] Start: 10-29-2024 Assay of triglycerides [...] Abdom paracentesis d x/ther w/imaging guidance Joey Soria Sal DO Work Phone: Start: 10-04-2024 Cell count and Diffe rential panel - Body fluid Joey Soria Sal DO Work Phone: Start: 10-04-2024 Cell count [...] culture No Primar y Care Physician Start: 01-18-2025 X-ray of lumbar spin e, two or three views No Primary Care Physician Plan of Treatment Date Care Activity Detail Author Start: 11-14-2034 Urine microalbumin profile DTaP,Tdap,Td Vaccine (2 - Td or Tdap) [facility] Start: 11-17-2029 Prostate specific antigen measurement Prostate Cancer Screening Discussion [facility] Start: 11-13-2029 Lipid panel Lipid Screening [facility] Start: 11-19-2027 Diabetes Screening Diabetes Screening [facility] Start: 11-17-2027 Diabetes Screening Diabetes Screening [facility] Start: 11-15-2027 Diabetes Screening Diabetes Screening [facility] Start: 11-13-2027 Diabetes Screening Diabetes Screening [facility] Start: 11-18-2025 Creatinine measurement Serum Creatinine [facility] Start: 11-16-2025 Creatinine measurement Serum Creatinine [facility] Start: 11-16-2025 Screening for malignant neoplasm of colon [facility] Start: 11-15-2025 Creatinine measurement Serum Creatinine [facility] Start: 11-12-2025 Creatinine measurement Serum Creatinine [facility] Start: 05-16-2025 Hepatitis A Vaccine (2 of 2 - Risk 2-dose series) Hepatitis A Vaccine (2 of 2 - Risk 2-dose series) [facility] Start: 04-10-2025 Patient discharge [facility] Start: 04-09-2025 Referral to service [facility] Start: 04-09-2025 [facility] Start: 04-09-2025 [facility] Start: 04-08-2025 Care planning and problem solving actions [facility] Start: 04-08-2025 Respiratory secretion precautions [facility] Start: 04-08-2025 Aspiration precautions [facility] Start: 04-08-2025 Assessment of risk of venous thromboembolism [facility] Start: 04-08-2025 Care regimes management [facility] Start: 04-08-2025 Fall prevention [facility] Start: 04-08-2025 Inhalation therapy procedure [facility] Start: 04-08-2025 Insertion of catheter into peripheral vein [facility] Start: 04-08-2025 Introduction of urinary catheter [facility] Start: 04-08-2025 Measuring intake and output [facility] Start: 04-08-2025 Notification of physician [facility] Start: 04-08-2025 Oxygen therapy [facility] Start: 04-08-2025 Providing care according to standard [facility] Start: 04-08-2025 Provision of activity privileges [facility] Start: 04-08-2025 Referral to occupational therapist [facility] Start: 04-08-2025 Referral to service [facility] Start: 04-07-2025 Following clinical pathway protocol [facility] Start: 04-07-2025 End: 04-08-2025 [facility] Start: 04-07-2025 Sars-cov-2 [facility] Start: 04-07-2025 Verification routine [facility] Start: 04-07-2025 Hospital admission, emergency, from emergency room, medical nature [facility] Start: 04-07-2025 Admission procedure [facility] Start: 04-07-2025 [facility] Start: 04-03-2025 [facility] Start: 03-30-2025 Anesthesia closed chest w/bronchoscopy nos [facility] Start: 03-30-2025 Insertion indwelling tunneled pleural catheter [facility] Start: 03-30-2025 Patient discharge [facility] Start: 03-11-2025 [facility] Start: 03-04-2025 Following clinical pathway protocol [facility] Start: 03-02-2025 End: 03-02-2025 Patient encounter procedure 03/02/2025 2:20 PM EDT Office Visit Family Medicine [address] [address] Alex Alexandre MD [address] [id number] Hospital discharge, diabetes mx, need for repeat vaccines, and consideration of CT chest [facility] Comment on above: Hospital discharge, diabetes mx, need fo r repeat vaccines, and consideration of CT chest Start: 02-27-2025 Patient discharge [facility] Start: 02-26-2025 [facility] Start: 02-26-2025 Referral to occupational therapist [facility] Start: 02-26-2025 Referral to service [facility] Start: 02-25-2025 Following clinical pathway protocol [facility] Start: 02-25-2025 Assessment of risk of venous thromboembolism [facility] Start: 02-25-2025 Care regimes management [facility] Start: 02-25-2025 Inhalation therapy procedure [facility] Start: 02-25-2025 Insertion of catheter into peripheral vein [facility] Start: 02-25-2025 Measuring intake and output [facility] Start: 02-25-2025 Notification of physician [facility] Start: 02-25-2025 Providing care according to standard [facility] Start: 02-25-2025 Provision of activity privileges [facility] Start: 02-25-2025 Referral to gastroenterology service [facility] Start: 02-25-2025 Referral to service [facility] Start: 02-25-2025 End: 02-25-2025 [facility] Start: 02-25-2025 Admission procedure [facility] Start: 02-25-2025 Patient referral to dietitian [facility] Start: 02-17-2025 [facility] Start: 02-17-2025 Referral to service [facility] Start: 02-17-2025 Admission procedure [facility] Start: 02-17-2025 Referral to occupational therapist [facility] Start: 02-17-2025 Referral to service [facility] Start: 02-17-2025 Patient discharge [facility] Start: 02-16-2025 Application of intermittent pneumatic compression device [facility] Start: 02-16-2025 Ambulation without limitation [facility] Start: 02-16-2025 Assessment of risk of venous thromboembolism [facility] Start: 02-16-2025 Incentive spirometry [facility] Start: 02-16-2025 Insertion of catheter into peripheral vein [facility] Start: 02-16-2025 Measuring intake and output [facility] Start: 02-16-2025 Oxygen therapy [facility] Start: 02-16-2025 Providing care according to standard [facility] Start: 02-16-2025 Referral to gastroenterology service [facility] Start: 02-16-2025 Referral to service [facility] Start: 02-16-2025 [facility] Start: 02-16-2025 Care of central venous catheter [facility] Start: 02-16-2025 Following clinical pathway protocol [facility] Start: 02-16-2025 Prothrombin time [facility] Start: 02-16-2025 Hospital admission, emergency, from emergency room, medical nature [facility] Start: 02-16-2025 Verification routine [facility] Start: 02-16-2025 Admission procedure [facility] Start: 02-16-2025 Acute hepatitis panel [facility] Start: 02-16-2025 Assay of ammonia [facility] Start: 02-16-2025 Collection venous blood venipuncture [facility] Start: 02-16-2025 Patient referral to dietitian [facility] Start: 02-13-2025 [facility] Start: 02-13-2025 Assay of lipase [facility] Start: 02-13-2025 Blood count complete auto&auto difrntl wbc [facility] Start: 02-13-2025 Comprehensive metabolic panel [facility] Start: 02-13-2025 Ct abdomen & pelvis w/contrast material [facility] Start: 02-13-2025 Emergency dept visit high severity&threat funcj [facility] Start: 02-13-2025 Ther proph/dx njx iv push single/1st sbst/drug [facility] Start: 02-13-2025 Therapeutic injection iv push each new drug [facility] Start: 02-08-2025 Centesis [facility] Start: 02-08-2025 End: 02-08-2025 [facility] Start: 02-02-2025 End: 02-02-2025 Patient encounter procedure 02/02/2025 9:20 AM EDT Office Visit [facility] [address] [place] [address] Ray Vega MD [address] [place] [address] est care [facility] Comment on above: est care Start: 01-31-2025 Patient discharge [facility] Start: 01-31-2025 Referral to service [facility] Start: 01-31-2025 [facility] Start: 01-29-2025 [facility] Start: 01-28-2025 Blood culture [facility] Start: 01-28-2025 Application of intermittent pneumatic compression device [facility] Start: 01-28-2025 Following clinical pathway protocol [facility] Start: 01-28-2025 Assessment of risk of venous thromboembolism [facility] Start: 01-28-2025 Care regimes management [facility] Start: 01-28-2025 Documentation procedure [facility] Start: 01-28-2025 Insertion of catheter into peripheral vein [facility] Start: 01-28-2025 Notification of physician [facility] Start: 01-28-2025 Providing care according to standard [facility] Start: 01-28-2025 Provision of activity privileges [facility] Start: 01-28-2025 Referral to occupational therapist [facility] Start: 01-28-2025 Referral to service [facility] Start: 01-28-2025 Speech therapy assessment [facility] Start: 01-28-2025 End: 01-28-2025 [facility] Start: 01-28-2025 Admission procedure [facility] Start: 01-28-2025 End: 01-28-2025 [facility] Start: 01-28-2025 End: 01-28-2025 [facility] Start: 01-28-2025 Patient referral to dietitian [facility] Start: 01-21-2025 Patient discharge [facility] Start: 01-18-2025 End: 01-18-2025 Microbial culture, body fluid [facility] Start: 01-18-2025 Care planning and problem solving actions [facility] Start: 01-18-2025 Anaerobic microbial culture [facility] Start: 01-17-2025 [facility] Start: 01-16-2025 [facility] Start: 01-15-2025 [facility] Start: 01-14-2025 Consultation for pain [facility] Start: 01-14-2025 [facility] Start: 01-13-2025 Administration of blood product [facility] Start: 01-13-2025 [facility] Start: 01-12-2025 [facility] Start: 01-11-2025 Application of intermittent pneumatic compression device [facility] Start: 01-11-2025 Referral to general surgeon [facility] Start: 01-11-2025 [facility] Start: 01-10-2025 Care planning and problem solving actions [facility] Start: 01-09-2025 Assessment of risk of venous thromboembolism [facility] Start: 01-09-2025 Cardiac monitoring [facility] Start: 01-09-2025 Catheterization of vein [facility] Start: 01-09-2025 Inhalation therapy procedure [facility] Start: 01-09-2025 Insertion of catheter into peripheral vein [facility] Start: 01-09-2025 Measuring intake and output [facility] Start: 01-09-2025 Notification of physician [facility] Start: 01-09-2025 Patient referral to dietitian [facility] Start: 01-09-2025 Providing care according to standard [facility] Start: 01-09-2025 Referral to occupational therapist [facility] Start: 01-09-2025 Referral to service [facility] Start: 01-09-2025 Vital signs measurements [facility] Start: 01-09-2025 [facility] Start: 01-09-2025 End: 01-09-2025 Following clinical pathway protocol [facility] Start: 01-09-2025 Bacterial nucleic acid assay [facility] Start: 01-09-2025 Verification routine [facility] Start: 01-09-2025 Admission procedure [facility] Start: 01-09-2025 Hospital admission, emergency, from emergency room, medical nature [facility] Start: 01-09-2025 End: 01-09-2025 [facility] Start: 01-09-2025 Consultation [facility] Start: 01-05-2025 Patient discharge [facility] Start: 01-04-2025 [facility] Start: 01-03-2025 End: 01-03-2025 [facility] Start: 01-03-2025 End: 01-03-2025 Care regimes management [facility] Start: 01-03-2025 Notification of physician [facility] Start: 01-03-2025 [facility] Start: 01-02-2025 Application of intermittent pneumatic compression device [facility] Start: 01-02-2025 Ambulation without limitation [facility] Start: 01-02-2025 Assessment of risk of venous thromboembolism [facility] Start: 01-02-2025 Care regimes management [facility] Start: 01-02-2025 Insertion of catheter into peripheral vein [facility] Start: 01-02-2025 Measuring intake and output [facility] Start: 01-02-2025 Notification of physician [facility] Start: 01-02-2025 Providing care according to standard [facility] Start: 01-02-2025 Referral to occupational therapist [facility] Start: 01-02-2025 Referral to service [facility] Start: 01-02-2025 End: 01-02-2025 [facility] Start: 01-02-2025 Admission procedure [facility] Start: 01-02-2025 Verification routine [facility] Start: 01-02-2025 Hospital admission, emergency, from emergency room, medical nature [facility] Start: 01-02-2025 End: 01-02-2025 [facility] Start: 01-02-2025 Consultation [facility] Start: 01-02-2025 Patient referral to dietitian [facility] Start: 12-30-2024 Assay of magnesium [facility] Start: 12-30-2024 Assay of troponin quantitative [facility] Start: 12-30-2024 Basic metabolic panel calcium total [facility] Start: 12-30-2024 Blood count complete auto&auto difrntl wbc [facility] Start: 12-30-2024 Culture bacterial quanttative colony count urine [facility] Start: 12-30-2024 Culture bct isol&prsmptv id isolate ea urine [facility] Start: 12-30-2024 Ecg routine ecg w/least 12 lds trcg only w/o i&r [facility] Start: 12-30-2024 Emergency department visit high/urgent severity [facility] Start: 12-30-2024 Gluc bld gluc mntr dev cleared fda spec home use [facility] Start: 12-30-2024 Iv infusion hydration each additional hour [facility] Start: 12-30-2024 Iv infusion therapy/prophylaxis /dx 1st to 1 hr [facility] Start: 12-30-2024 Radiologic exam chest 2 views [facility] Start: 12-30-2024 Urnls dip stick/tablet reagent auto microscopy [facility] Start: 12-30-2024 [facility] Start: 12-30-2024 End: 12-30-2024 [facility] Start: 12-29-2024 End: 12-29-2024 Patient encounter procedure Endocrinology Comment on above: Diabetes maangement Diabetes maangement/ LVM OF SOONER APPOINTMENT 11/21 Start: 12-26-2024 [facility] Start: 12-26-2024 End: 12-26-2024 [facility] Start: 12-23-2024 End: 12-23-2024 Patient encounter procedure 12/23/2024 9:45 AM EDT Office Visit Vascular Medicine [address] [place] [address] Pamella Frances, OUTSIDE MACHINIST HELPER.METAL CABINET FINISHER [address] [place] [address] HOSPITAL FOLLOW UP V[facility] Medicine Comment on above: HOSPITAL FOLLOW UP Start: 12-12-2024 Hepatitis B Vaccine (2 of 2 - CpG 2-dose series) Hepatitis B Vaccine (2 of 2 - CpG 2-dose series) [facility] Start: 12-07-2024 End: 12-07-2024 Patient encounter procedure 12/07/2024 3:45 PM EDT Office Visit Urology [address] [address] Eva Pichardo MD [address] [place] [address] L ureteral stent, s/p staghorn calculi [facility] Comment on above: L ureteral stent, s/p staghorn calculi Start: 12-07-2024 End: 12-07-2024 Patient encounter procedure 12/07/2024 11:20 AM EDT Office Visit [facility] [address] [place] [address] Ksenia Hoyos, OUTSIDE MACHINIST HELPER.METAL CABINET FINISHER [address] [place] [address] Hospital discharge, diabetes mx, need for repeat vaccines, and consideration of CT chest [facility] Comment on above: Hospital discharge, diabetes mx, need fo r repeat vaccines, and consideration of CT chest Start: 12-02-2024 Patient discharge [facility] Start: 12-01-2024 Consultation [facility] Start: 11-29-2024 [facility] Start: 11-28-2024 Enteric precautions [facility] Start: 11-28-2024 Application of intermittent pneumatic compression device [facility] Start: 11-28-2024 Following clinical pathway protocol [facility] Start: 11-28-2024 Assessment of risk of venous thromboembolism [facility] Start: 11-28-2024 Care regimes management [facility] Start: 11-28-2024 Insertion of catheter into peripheral vein [facility] Start: 11-28-2024 Measuring intake and output [facility] Start: 11-28-2024 Notification of physician [facility] Start: 11-28-2024 Providing care according to standard [facility] [facility] Start: 11-28-2024 Provision of activity privileges [facility] Start: 11-28-2024 Referral to occupational therapist [facility] Start: 11-28-2024 Referral to service [facility] Start: 11-28-2024 End: 11-28-2024 [facility] Start: 11-28-2024 Admission procedure [facility] Start: 11-28-2024 Inhalation therapy procedure [facility] Start: 11-28-2024 Patient referral to dietitian [facility] Start: 11-25-2024 Patient discharge [facility] Start: 11-24-2024 Administration of blood product [facility] Start: 11-23-2024 Admission procedure [facility] Start: 11-22-2024 [facility] Start: 11-21-2024 Care regimes management [facility] Start: 11-21-2024 Notification of physician [facility] Start: 11-21-2024 Following clinical pathway protocol [facility] Start: 11-21-2024 Ambulation without limitation [facility] Start: 11-21-2024 Assessment of risk of venous thromboembolism [facility] Start: 11-21-2024 Insertion of catheter into peripheral vein [facility] Start: 11-21-2024 Measuring intake and output [facility] Start: 11-21-2024 Providing care according to standard [facility] Start: 11-21-2024 Referral to occupational therapist [facility] Start: 11-21-2024 Referral to service [facility] Start: 11-21-2024 End: 11-21-2024 [facility] Start: 11-21-2024 Verification routine [facility] Start: 11-21-2024 Admission procedure [facility] Start: 11-21-2024 Hospital admission, emergency, from emergency room, medical nature [facility] Start: 11-21-2024 End: 11-21-2024 [facility] Start: 11-21-2024 Consultation [facility] Start: 11-18-2024 End: 11-18-2024 Patient encounter procedure 11/18/2024 3:30 PM EDT Office Visit Cardiology [address] [place] [address] G81-25; Liver Tx Evaluation; CONTACT PRECAUTIONS - C-Diff; last of the day Cardiology Comment on above: G81-25; Liver Tx Evaluation; CONTACT PRECAUTIONS - C-Diff; last of the day Start: 11-17-2024 End: 11-17-2024 Patient encounter procedure Pulmonary Medicine Comment on above: C-diff precuations/RA-2L/Reg WC Start: 11-15-2024 End: 11-15-2024 Patient encounter procedure 11/15/2024 1:15 PM EDT Office Visit Dentistry [address] [id number] Izabela Harvey, DDS [address] [place] [address] BEDSIDE - TRANSPLANT [place] - [id number] - Consult Placed 11/12/24 Dentistry Comment on above: BEDSIDE - TRANSPL[employer] [place] - [id number] [phone] - Consult Placed 11/12/24 Start: 11-10-2024 Patient discharge [facility] Start: 11-09-2024 Consultation [facility] Start: 11-09-2024 Referral to gastroenterology service [facility] Start: 11-09-2024 Glucose measurement, body fluid [facility] Start: 11-08-2024 Urinary bladder residual urine study [facility] Start: 11-08-2024 [facility] Start: 11-05-2024 Removal of urinary catheter [facility] Start: 11-04-2024 [facility] Start: 10-31-2024 [facility] Start: 10-30-2024 Attention to flatus tube [facility] Start: 10-30-2024 Referral to gastroenterology service [facility] Start: 10-29-2024 Insertion of nasogastric tube [facility] Start: 10-29-2024 Bacteria identified in Blood by Culture Blood Culture [facility] Start: 10-29-2024 Referral to service [facility] Start: 10-29-2024 Application of intermittent pneumatic compression device [facility] Start: 10-29-2024 Following clinical pathway protocol [facility] Start: 10-29-2024 Cardiac monitoring [facility] Start: 10-29-2024 Catheterization of vein [facility] Start: 10-29-2024 Enteric precautions [facility] Start: 10-29-2024 Notification of physician [facility] Start: 10-29-2024 Vital signs measurements [facility] Start: 10-29-2024 [facility] Start: 10-29-2024 End: 10-29-2024 Consultation [facility] Start: 10-29-2024 Clostridioides difficile DNA [Presence] in Unspecified specimen by ANANTH with probe detection [facility] Start: 10-29-2024 Complete ultrasound of kidneys and bladder Kidney and Bladder [facility] Start: 10-29-2024 Lactoferrin [Presence] in Stool by Immunoassay [facility] Start: 10-29-2024 Nucleic acid assay [facility] Start: 10-29-2024 Admission procedure [facility] Start: 10-29-2024 End: 10-29-2024 Hospital admission, emergency, from emergency room, medical nature [facility] Start: 10-29-2024 End: 10-29-2024 [facility] Start: 10-29-2024 Patient referral to dietitian [facility] Start: 10-28-2024 [facility] Start: 10-28-2024 Bacteria identified in Urine by Culture Urine Culture [facility] Start: 09-14-2024 Patient discharge [facility] Start: 09-06-2024 Referral to service [facility] Start: 09-06-2024 Referral to occupational therapist [facility] Start: 09-06-2024 Referral to leasing sales consultant [facility] Start: 09-06-2024 Consultation [facility] Start: 09-06-2024 Care planning and problem solving actions [facility] Start: 09-06-2024 [facility] Start: 09-05-2024 Application of intermittent pneumatic compression device [facility] Start: 09-05-2024 Continuous positive airway pressure ventilation treatment [facility] Start: 09-05-2024 Cardiac monitoring [facility] Start: 09-05-2024 Care regimes management [facility] Start: 09-05-2024 Catheterization of vein [facility] Start: 09-05-2024 Consultation [facility] Start: 09-05-2024 Notification of physician [facility] Start: 09-05-2024 Vital signs measurements [facility] Start: 09-05-2024 End: 09-05-2024 [facility] Start: 09-05-2024 Following clinical pathway protocol [facility] Start: 09-05-2024 Admission procedure [facility] Start: 09-05-2024 Patient referral to dietitian [facility] Start: 09-02-2024 Patient discharge [facility] Start: 08-31-2024 Care planning and problem solving actions [facility] Start: 08-30-2024 [facility] Start: 08-29-2024 Following clinical pathway protocol [facility] Start: 08-29-2024 Assessment of risk of venous thromboembolism [facility] Start: 08-29-2024 Care regimes management [facility] Start: 08-29-2024 Fall prevention [facility] Start: 08-29-2024 Inhalation therapy procedure [facility] Start: 08-29-2024 Insertion of catheter into peripheral vein [facility] Start: 08-29-2024 Measuring intake and output [facility] Start: 08-29-2024 Notification of physician [facility] Start: 08-29-2024 Patient referral to dietitian [facility] Start: 08-29-2024 Providing care according to standard [facility] Start: 08-29-2024 Provision of activity privileges [facility] Start: 08-29-2024 Referral to gastroenterology service [facility] Start: 08-29-2024 Referral to leasing sales consultant [facility] Start: 08-29-2024 Referral to occupational therapist [facility] Start: 08-29-2024 Referral to service [facility] Start: 08-29-2024 Vital signs measurements [facility] Start: 08-29-2024 End: 08-29-2024 [facility] Start: 08-29-2024 Admission procedure [facility] Start: 08-21-2024 [facility] Start: 04-04-2024 COVID-19 Vaccine ( season) COVID-19 Vaccine ( season) [facility] Start: 04-04-2024 Influenza vaccination Influenza Vaccine (#1) [facility] Start: 2021 Prostate specific antigen measurement Prostate Cancer Screening Discussion [facility] Start: 2016 Zoster Vaccines (1 of 2) Zoster Vaccines (1 of 2) [facility] Start: 2011 Screening for malignant neoplasm of colon [facility] Start: 2001 Lipid panel Lipid Screening [facility] Start: 1988 DTaP/Tdap/Td Vaccines (1 - Tdap) DTaP/Tdap/Td Vaccines (1 - Tdap) [facility] Start: 1985 Hepatitis A Vaccine (1 of 2 - Risk 2-dose series) Hepatitis A Vaccine (1 of 2 - Risk 2-dose series) [facility] Start: 1985 Hepatitis A Vaccines (1 of 2 - Risk 2-dose series) Hepatitis A Vaccines (1 of 2 - Risk 2-dose series) [facility] Start: 1985 Hepatitis B Vaccine (1 of 3 - 19+ 3-dose series) Hepatitis B Vaccine (1 of 3 - 19+ 3-dose series) [facility] Start: 1985 Hepatitis B Vaccines (1 of 3 - 19+ 3-dose series) Hepatitis B Vaccines (1 of 3 - 19+ 3-dose series) [facility] Start: 1985 Pneumococcal vaccination Pneumococcal Vaccine (1 of 2 - PCV) [facility] Start: 1985 Pneumococcal Vaccine: 50+ (1 of 2 - PCV) Pneumococcal Vaccine: 50+ (1 of 2 - PCV) [facility] Start: 1985 Shingrix Vaccine (1 of 2) Shingrix Vaccine (1 of 2) [facility] Start: 1985 Urine microalbumin profile DTaP,Tdap,Td Vaccine (1 - Tdap) [facility] Start: 1984 Annual PCP Team Chronic Disease Visit Annual PCP Team Chronic Disease Visit [facility] Start: 1984 Anxiety Screening Anxiety Screening [facility] Start: 1984 Depression Screening Depression Screening [facility] Start: 1984 Hepatitis C screening Hepatitis C Screening [facility] Start: 1984 HIV screening HIV Screening [facility] Start: 1976 Glaucoma screening Diabetes: Retinopathy Screening [facility] Start: 1967 MMR Vaccines (1 of 1 - Standard series) MMR Vaccines (1 of 1 - Standard series) [facility] Start: 1966 Hemoglobin A1c measurement Diabetes: Hemoglobin A1C [facility] Start: 1966 HIV screening HIV Screening [facility] Start: 1966 Lipid panel Lipid Panel [facility] Start: 1966 Screening for malignant neoplasm of colon [facility] Start: 1966 Urine screening for protein Diabetes: Urine Protein Screening [facility] Start: 1966 Yearly Adult Physical Yearly Adult Physical [facility] Alanine aminotransfe rase [Enzymatic activity/volume] in Serum or Plasma [facility] End: 10-04-2024 Albumin [Mass/volume] in Body fluid [facility] Work Phone: Comment on above: Once (Lab) for 1 Occurrences starting until 10/04/2024 Once for 1 Occurrenc es starting 10/04/2024 until 10/04/2024 Albumin [Mass/volume ] in Serum or Plasma [facility] Alkaline phosphatase [Enzymatic activity/volume] in Serum or Plasma [facility] Anion gap in Serum o r Plasma [facility] End: 10-04-2024 Bacteria identified in Body fluid by Culture [facility] Work Phone: Comment on above: Once (Lab) for 1 Occurrences starting until 10/04/2024 Bilirubin, total measurement [facility] BUN/Creatinine ratio [facility] Calcium [Mass/volume ] in Serum or Plasma [facility] Carbon dioxide, tota l [Moles/volume] in Central venous blood [facility] CBC W Auto Different ial panel - Blood [facility] End: 10-04-2024 Clostridioides difficile toxin A+B tcdA+tcdB genes [Presence] in Stool by ANANTH with probe detection C. difficile, PCR Microbiology STAT STAT (Lab) for 1 Occurrences starting 10/04/2024 until 10/04/2024 [facility] Work Phone: Comment on above: STAT (Lab) for 1 Occurrences starting until 10/04/2024 Comprehensive metabo lic 2000 panel - Serum or Plasma [facility] Creatinine [Mass/vol ume] in Serum or Plasma [facility] Cytology report of B carmelina fluid Cyto stain [facility] Erythrocyte mean corpuscular volume determination [facility] End: 10-04-2024 Extra Urine Garvey Tube Extra Urine Garvey Tube Lab Timed Once for 1 Occurrences starting 10/04/2024 until 10/04/2024 [facility] Work Phone: Comment on above: Once for 1 Occurrences starting 10/05/19 until 10/04/2024 End: 10-04-2024 Glucose [Mass/volume] in Body fluid [facility] Work Phone: Comment on above: Once (Lab) for 1 Occurrences starting until 10/04/2024 Once for 1 Occurrenc es starting 10/04/2024 until 10/04/2024 Glucose [Mass/volume ] in Serum or Plasma [facility] Glucose [Mass/volume ] in Serum or Plasma [facility] Hematocrit [Volume Fraction] of Blood [facility] Hemoglobin [Mass/vol ume] in Blood [facility] End: 10-04-2024 Hemoglobin.gastrointestin al.lower [Presence] in Stool by Immunoassay Fecal Occult Blood Immunoassy Microbiology STAT Once (Lab) for 1 Occurrences starting 10/04/2024 until 10/04/2024 [facility] Work Phone: Comment on above: Once (Lab) for 1 Occurrences starting until 10/04/2024 Hepatitis A virus Ig M Ab [Presence] in Serum [facility] Hepatitis B core ant ibody measurement, IgM type [facility] Hepatitis B surface antigen measurement [facility] Hepatitis C antibody measurement [facility] INR in Blood by Coagulation assay [facility] End: 10-04-2024 Lactate dehydrogenase [Enzymatic activity/volume] in Body fluid by Lactate to pyruvate reaction [facility] Work Phone: Comment on above: Once (Lab) for 1 Occurrences starting until 10/04/2024 Once for 1 Occurrenc es starting 10/04/2024 until 10/04/2024 Lactate dehydrogenas e [Enzymatic activity/volume] in Body fluid by Pyruvate to lactate reaction [facility] Lactic acid measurement [facility] Lactic acid measurement [facility] Leukocytes [#/volume ] in Blood [facility] Magnesium measurement [facility] Mean corpuscular hemoglobin concentration determination [facility] Mean corpuscular hemoglobin determination [facility] Measurement of renal function [facility] Neutrophil count [facility] Neutrophil percent differential count [facility] End: 10-04-2024 Non-gynecological cytology method study Cytology (Non-Gynecologic) Pathology and Cytology Routine Once (Lab) for 1 Occurrences starting 10/04/2024 until 10/04/2024 [facility] Service Area Work Phone: Comment on above: Once (Lab) for 1 Occurrences starting until 10/04/2024 Ova OR parasites identification [facility] Patient Education [facility] Work Phone: Patient referral [facility] Work Phone: End: 10-04-2024 pH of Body fluid [facility] Work Phone: Comment on above: Once (Lab) for 1 Occurrences starting until 10/04/2024 Platelets [#/volume] in Blood [facility] Potassium measurement [facility] End: 10-04-2024 Protein [Mass/volume] in Body fluid [facility] Work Phone: Comment on above: Once (Lab) for 1 Occurrences starting until 10/04/2024 Once for 1 Occurrenc es starting 10/04/2024 until 10/04/2024 Protein [Mass/volume ] in Body fluid [facility] Prothrombin time [facility] Red blood cell count [facility] Red cell distributio n width determination [facility] Respiratory pathogen s DNA and RNA panel - Respiratory specimen by ANANTH with probe detection [facility] Serum chloride measurement [facility] Sodium measurement [facility] End: 10-04-2024 Stool Pathogen Panel, PCR Stool Pathogen Panel, PCR Microbiology STAT Once (Lab) for 1 Occurrences starting 10/04/2024 until 10/04/2024 [facility] Work Phone: Comment on above: Once (Lab) for 1 Occurrences starting until 10/04/2024 Total protein measurement [facility] UA DIP, URINE (POC) UA DIP, URIN E (POC) Lab Routine Screening for genitourinary condition 1 Occurrences starting 12/07/2024 [facility] Work Phone: Comment on above: 1 Occurrences starting 12/07/2024 Urea nitrogen [Mass/volume] in Serum or Plasma [facility] End: 10-04-2024 Urinalysis complete W Reflex Culture panel - Urine [facility] Service Area Work Phone: Comment on above: Once (Lab) for 1 Occurrences starting until 10/04/2024 Once for 1 Occurrenc es starting 10/04/2024 until 10/04/2024 Urine culture [facility] Urine culture [facility] Urine culture [facility] Urine culture [facility] Urine culture [facility] Urine culture [facility] Urine culture [facility] Urine culture [facility] Urine culture [facility] Immunizations Immunization Date Immunization Notes Care Provider Danny méndez 11-16-2024 COVID-19 vaccine, ag e 12+ yr ([employer]) Jeremi Abreu RN Work Phone: [facility] 11-15-2024 pneumococcal conjuga te (PCV20) vaccine, 20 valent (PREVNAR 20) Marah Claroswellington [employer] Work Phone: [facility] 11-14-2024 hepatitis A vaccine, adult dosage Marah Helmicki [employer] Work Phone: [facility] 11-14-2024 Hepatitis B vaccine (recombinant), CpG adjuvanted Marah Clarosmicanitra [employer] Work Phone: [facility] 11-14-2024 tetanus toxoid, redu danica diphtheria toxoid, and acellular pertussis vaccine, adsorbed Marah Arauz [employer] Work Phone: [facility] 09-20-2024 influenza, seasonal, injectable Jeremi Abreu RN Work Phone: [facility] Work Phone: 09-15-2024 tuberculin skin test ; purified protein derivative solution, intradermal Jeremi Abreu RN Work Phone: [facility] Payers Date Payer Category Payer Self-pay 2024 Medicaid [id number] 2024 Medicaid [id number] 1965 Unknown [id number] 1965 Unknown [id number] Unknown [id number] Social History Date Type Detail Facility Start: 10-04-2024 End: 04-09-2025 Tobacco smoking status NHIS Ex-smoker [facility] Work Phone: History of tobacco use [facility] Work [facility]: History of tobacco use [facility] Work [facility]: Start: 10-04-2024 End: 11-11-2024 Tobacco use and exposure Smokeless tobacco non-user [facility] Work Phone: Start: 10-04-2024 Alcoholic beverage intake Ex-drinker (finding) [facility] Work Phone: Start: 10-04-2024 End: 11-15-2024 History of Social function [facility] Start: 10-04-2024 End: 11-15-[address] [facility] Start: 1965 Sex assigned at Not on file [facility] Work Phone: Start: 09-24-2024 End: 10-04-2024 Exposure to SARS-CoV-2 (event) Not sure [facility] Work Phone: Start: 10-11-2024 End: 11-21-2024 Sex Male (finding) [facility] Start: 1965 Sex Assigned At Male [facility] Start: 11-11-2024 End: 11-18-2024 Alcoholic beverage intake Lifetime non-drinker (finding) [facility] Has the [employer], AddFleet, AlloCure, or water [employer] threatened to shut off services in your home in past 12Mo No [facility] (I/We) worried wheth er (my/our) food would run out before (I/we) got money to buy more. Sometimes true [facility] In the past 12 month s, has lack of transportation kept you from medical appointments or from getting medications? Yes [facility] Medical Equipment Procedure Code Equipment Code Equipment Origin al Text Equipment Identifier Dates Insertion, PleurX catheter system, pleural cavity FDA Start: 03-30-2025 Insertion, PleurX catheter system, pleural cavity FDA Start: 03-30-2025 Cystoscopic insertion of stent ([id number]) ([id number] FDA Start: 09-05-2024 Goals Date Patient Goal Desired Activity /State Functional Status Date Assessment Result Facility 04-10-2025 Functional status Bedrest [facility] Work Phone: 02-27-2025 Functional status Ambulates [facility] Work Phone: 02-17-2025 Functional status Bathroom Privi lege;Back to bed [facility] Work Phone: 01-31-2025 Functional status Ambulates [facility] Work Phone: 01-21-2025 Functional status Ambulates [facility] Work Phone: 01-05-2025 Functional status With Assist of 1 [facility] Work Phone: 01-05-2025 Functional status Ambulates;Bath room Privilege [facility] Work Phone: 12-02-2024 Functional status Ambulates [facility] Work Phone: 11-25-2024 Functional status Bedrest [facility] Work Phone: 11-18-2024 Are you deaf, or do you have serious difficulty hearing Yes 11/18/2024 10:13 AM Anika Andino, DAYSI Yes [facility] 11-18-2024 Are you blind, or do you have serious difficulty seeing, even when wearing glasses No 11/18/2024 10:13 AM Anika Andino, DAYSI No [facility] 11-18-2024 Do you have serious difficulty walking or climbing stairs Yes 11/18/2024 10:13 AM Anika Andino, DAYSI Yes [facility] 11-18-2024 Do you have difficul ty dressing or bathing Yes 11/18/2024 10:13 AM EDT Anika Carolina RN Yes [facility] 11-18-2024 Because of a physica l, mental, or emotional condition, do you have difficulty doing errands alone such as visiting a physician's office or shopping Yes 11/18/2024 10:13 AM EDT Anika Carolina RN Yes [facility] 11-11-2024 Functional status Bedpan [facility] Work Phone: 09-15-2024 Functional status Ambulates [facility] Work Phone: 09-02-2024 Functional status Bathroom Privilege [facility] Work Phone: Mental Status Date Assessment Result Facility 04-10-2025 Cognitive function Awake;Appropr iate;Follows Commands [facility] Work Phone: 04-08-2025 Cognitive function Cooperative [facility] Work Phone: 04-07-2025 Cognitive function Awake;Drowsy [facility] Work Phone: 03-30-2025 Cognitive function Voice/Name [facility] Work Phone: 03-11-2025 Cognitive function Appropriate;F ollows Commands;[facility] Work Phone: 03-04-2025 Cognitive function Awake;Alert;Appropriat e [facility] Work Phone: 02-27-2025 Cognitive function Voice/Name [facility] Work Phone: 02-17-2025 Cognitive function Voice/Name [facility] Work Phone: 02-16-2025 Cognitive function Alert;Appropr iate;Follows Commands;[facility] Work Phone: 02-11-2025 Cognitive function Awake;Alert;Appropriat e [facility] Work Phone: 01-31-2025 Cognitive function Cooperative;A nxious;Talkat chris [facility] Work Phone: 01-30-2025 Cognitive function Voice/Name [facility] Work Phone: 01-28-2025 Cognitive function Awake;Alert;A ppropriate;[facility]: 01-21-2025 Cognitive function Voice/Name [facility] Work Phone: 01-05-2025 Cognitive function Voice/Name [facility] Work Phone: 01-02-2025 Cognitive function Awake;Alert;Appropriat e [facility] Work Phone: 12-30-2024 Cognitive function Awake;Alert;A ppropriate;[facility] Work Phone: 12-02-2024 Cognitive function Voice/Name [facility] Work Phone: 11-25-2024 Cognitive function Voice/Name [facility] Work Phone: 11-18-2024 Because of a physica l, mental, or emotional condition, do you have serious difficulty concentrating, remembering, or making decisions Yes 11/18/2024 10:13 AM Anika Andino RN Yes [facility] 11-10-2024 Cognitive function Voice/Name [facility] Work Phone: 09-29-2024 Cognitive function Awake;Alert;A ppropriate;[facility] Work Phone: 09-14-2024 Cognitive function Appropriate;Cooperativ e [facility] Work Phone: 09-14-2024 Cognitive function Voice/Name [facility] Work Phone: 09-02-2024 Cognitive function Voice/Name [facility] Work Phone: Clinical Notes 08-30-2024 to 04-20-2025 Note Date & Type Note Facility 04-20-2025 Note [facility] 04-10-2025 Discharge summary Note Date/Time April 10, 2025 10:52am [facility] Medical Records Department [address] [place] [address] Discharge Summary 04/10/25 1046 MR#: [id number] Acct: [id number] Name: FRANKLIN ARCHULETA Rep #:[id number] : 1965 59 From: Anurag Lucero PCP: YG Pena Status:ADM I N Location: [facility] EW271-3 Providers Date of Admission: 04/07/25 Date of [...] he was found not transplant candidate by [facility] and he keeps changing mind to [...] Clarity Cloudy, Urine pH 7.0, Ur Specific Weston 1.010, Urine Protein 30 H, Urine Glucose [...] % (Auto) 62.8, Lymph % (Auto) 19.5, Haywood % (Auto) 10.6 H, Eos % (Auto) [...] YG Elias; Dr. Anurag Irene MD~ Signed [facility] Work Phone: 1([phone]) 438-457509-07-2025 Discharge summary Author Anurag Irene [facility] Note Date/Time April 10, 2025 10:46am [facility] Medical Records Department [address] [place] [address] Instructions for Home/Discharge Instructions 04/10/25 0835 MR#: [id number] Acct: [id number] Name: FRANKLIN ARCHULETA Rep #:[id number] : 1965 59 From: [...] Maria Guadalupe Shore MD; Dr. Rick Carlin, ~ Signed [facility] Work Phone: 1(717) 986-237609-07-2025 [facility]09-06-2025 Progress note Author Anurag Irene [facility] Note Date/Time April 09, 2025 1:59pm [facility] Medical Records Department [address] [place] [address] Progress Note - Hospitalist 04/09/25 1348 MR#: [id number] Acct: [id number] Name: FRANKLIN ARCHULETA Rep #:[id number] : 1965 59 From: Anurag Lucero PCP: YG Pena Status:ADM I N Location: [place] [address] Reason for Visit Chief Complaint: Confusion, weakness. [...] he was found not transplant candidate by [facility] and he keeps changing mind to [...] 201 H Charges/Coding Visit Charges Inpatient E&M: 48104 Subs Hosp L2 04/09/25 1356 <Electronically signed by Anurag Irene MD> Cosigner Signature (if applicable): CC: ~ Signed [facility] Work Phone: 1(944) 477-215109-05-2025 Progress note Author Rick Carlin [facility] Note Date/Time April 08, 2025 4:58pm [facility] Medical Records Department [address] [place] [address] Progress Note - Hospitalist 04/08/25 1651 MR#: [id number] Acct: [id number] Name: FRANKLIN ARCHULETA Rep #:[id number] : 1965 59 From: Rick Carlin DO PCP: YG Pena Status:ADM I N Location: [place] [address] Reason for Visit Chief Complaint: Confusion, weakness. [...] (Auto) 67.0, Lymph % (Auto) 16.8 L, Haywood % (Auto) 9.9, Eos % (Auto) 5.2 [...] Sl. Cloudy, Urine pH 6.5, Ur Specific Weston 1.015, Urine Protein 100 H, Urine Glucose [...] Neut % (Auto) 59.8, Lymph % (Auto) 22.5,Haywood % (Auto) 10.7 H, Eos % (Auto) [...] 35 minutes Charges/Coding Visit Charges Inpatient E&M: 60681 Subs Hosp L2 04/08/25 9926 <Electronically signed by Rick Carlin DO> Cosigner Signature (if applicable): CC: ~ Signed [facility] Work Phone: 1(216) 846-395309-05-2025 Progress note Author Maria Guadalupe Shore [facility] Note Date/Time April 10, 2025 1:19pm [facility] Medical Records Department [address] [place] [address] Progress Note - Hospitalist 04/08/25 0353 MR#: [id number] Acct: [id number] Name: FRANKLIN ARCHULETA Rep #:[id number] : 1965 59 From: Maria Guadalupe Shore MD PCP: Josy Tannhof, AIRCRAFT LOADMASTER SUPERINTENDENT-C Status:ADM I N Location: [facility] HS013-1 Hospitalist Note Respiratory panel with + rhinovirus. 04/08/25 0353 <Electronically signed by Maria Guadalupe Shore MD> Cosigner Signature (if applicable): CC: ~ Signed [facility] Work Phone: 1(109) [phone] Discharge summary Author Rachel Joiner [facility] Note Date/Time April 07, 2025 11:52pm [facility] Medical Records Department [address] [place] [address] Emergency Department Summary 04/07/25 MR#: [id number] Acct: [id number] Name: FRANKLIN ARCHULETA Rep #:[id number] : 1965 59 From: Rachel Holland PCP: YG Pena Status:ADM I N Location: [facility]3 YP365-3 HPI History of Present Illness Chief Complaint: [...] he is here and has no complaints. [facility] Medical History Diffuse abdominal pain Acute hepatic [...] (Auto) 67.0 Lymph % (Auto) 16.8 L Haywood % (Auto) 9.9 Eos % (Auto) 5.2 [...] Color Urine Clarity Urine pH Ur Specific Weston Urine Protein Urine Glucose (UA) Urine Ketones Urine Occult Blood Urine Nitrite Urine Bilirubin Urine Urobilinogen Ur Leukocyte Esterase Urine RBC Urine WBC Ur Squamous Epith Cells Urine Bacteria Urine Mucus POC Glucose 81 04/07/25 21:42 WBC RBC Hgb Hct MCV MCH MCHC RDW Std Deviation RDW Coeff of Francis Plt Count MPV Immature Gran % (Auto) Neut % (Auto) Lymph % (Auto) Haywood % (Auto) Eos % (Auto) Baso % (Auto) Absolute Neuts (auto) Absolute Lymphs (auto) Nucleated RBC % Sodium Potassium Chloride Carbon Dioxide Anion Gap BUN Creatinine Est GFR (MDRD) Non-Af BUN/Creatinine Ratio Glucose Calcium Phosphorus Magnesium Total Bilirubin Direct Bilirubin AST ALT Alkaline Phosphatase Ammonia Total Protein Albumin Globulin Lipase Urine Color Yellow Urine Clarity Sl. Cloudy Urine pH 6.5 Ur Specific Weston 1.015 Urine Protein 100 H Urine Glucose [...] Josy Elias Disposition Disposition: Acute Care Hospital [facility] Discharge Date/Time: 04/07/25 23:38 What to do if you have Problems For any increased pain, shortness of breath, bleeding, nausea or vomiting, chestpain, or any unexpected problems, contact your Primary Care Provider. Call [facility] ([phone]) or report to the closest Emergency Room. Call 911 if necessary. 04/07/25 8917 <Electronically signed by Rachel Joiner DO> Cosigner Signature (if applicable): CC: GY Elias ~ Signed [facility] Work Phone: 1([phone]) 353-521909-04-2025 History and physical note Author Maria Guadalupe Shore [facility] Note Date/Time April 07, 2025 9:47pm [facility] Medical Records Department [address] [place] [address] H&P Exam - Hospitalist 04/07/252119 MR#: [id number] Acct: [id number] Name: FRANKLIN ARCHULETA Rep #:[id number] : 1965 59 From: Maria Guadalupe Shore MD PCP: Josy Elias AIRCRAFT LOADMASTER SUPERINTENDENT-C Status:REG E R Location: ED HPI - [...] following with Dr. Rascon who presents to [facility] ED on 04/28 with increased fatigue, malaise and reported URI type symptoms as well with increasing confusion with blood sugar noted to be 80 prior to ED arrival with episode of nausea and emesis with no fevers or chills prompting patient healthcare power of trademark attorney his ex- and a friend to care for him topresent him to the ED for further evaluation. Of note patient with recent 03/30/2025 ultrasound-guided placement of tunneled Pleur-X catheter for persistent cirrhotic ascites per Dr. Balderas with unfortunately then follow-up ED visit noted 04/03/2025 with paracentesis tubing unfortunately falling out with decision at that time her healthcare power of trademark attorney to return the patient to home [...] 1.76, D bili 1.11, AST/ALT 48/23, alk [id number], lipase 47, ammonia level 143, urinalysis pending upon requested evaluation of patient. Discussed with ED physician and patient will be administered rectal lactulose. [facility] Medical History Diffuse abdominal pain [...] (Auto) 67.0, Lymph % (Auto) 16.8 L, Haywood % (Auto) 9.9, Eos % (Auto) 5.2 [...] following with Dr. Rascon who presents to [facility] ED on 04/28 with increased fatigue, malaise and reported URI type symptoms as well with increasing confusion with blood sugar noted to be 80 prior to ED arrival with episode of nausea and emesis with no fevers or chills prompting patient healthcare power of trademark attorney his ex- and a friend to care for him topresent him to the ED for further evaluation. #1. Acute hepatic encephalopathy with significant hyperammonemia with chronic nonalcoholic cirrhotic liver disease: Will admit to [facility], once oral intake safe with plan for [...] 16 minutes. Charges/Coding Visit Charges Inpatient E&M: 34072 Init Hosp L3 Procedures Hospitalists Procedures: 15065 Advncd Care Plan 30 Min 04/07/257 <Electronically signed by Maria Guadalupe Shore MD> Cosigner Signature (if applicable): CC: MOE-Pastora Elias; Dr. Maria Guadalupe Shore MD~ Signed [facility] Work Phone: [phone] 156-761509-04-2025 History and physical note Author Maria Guadalupe Shore [facility] Note Date/Time April 07, 2025 9:47pm [facility] Medical Records Department [address] [place] [address] H&P Exam - Hospitalist 04/07/252119 MR#: [id number] Acct: [id number] Name: FRANKLIN ARCHULETA Rep #:[id number] : 1965 59 From: [...] following with Dr. Rascon who presents to [facility] ED on 04/28 with increased fatigue, malaise and reported URI type symptoms as well with increasing confusion with blood sugar noted to be 80 prior to ED arrival with episode of nausea and emesis with no fevers or chills prompting patient healthcare power of trademark attorney his ex- and a friend to care for him topresent him to the ED for further evaluation. Of note patient with recent 03/30/2025 ultrasound-guided placement of tunneled Pleur-X catheter for persistent cirrhotic ascites per Dr. Balderas with unfortunately then follow-up ED visit noted 04/03/2025 with paracentesis tubing unfortunately falling out with decision at that time her healthcare power of trademark attorney to return the patient to home [...] 1.76, D bili 1.11, AST/ALT 48/23, alk svep650, lipase 47, ammonia level 143, urinalysis pending upon requested evaluation of patient. Discussed with ED physician and patient will be administered rectal lactulose. [facility] Medical History Diffuse abdominal pain [...] 01/31/25 Unk nown Rx /16 (Pen Needle) carvedilol 3.125 mg tablet 3.125 [...] (Auto) 67.0, Lymph % (Auto) 16.8 L, Haywood % (Auto) 9.9, Eos % (Auto) 5.2 [...] following with Dr. Rascon who presents to [facility] ED on 04/28 with increased fatigue, malaise and reported URI type symptoms as well with increasing confusion with blood sugar noted to be 80 prior to ED arrival with episode of nausea and emesis with no fevers or chills prompting patient healthcare power of trademark attorney his ex- and a friend to care for him topresent him to the ED for further evaluation. #1. Acute hepatic encephalopathy with significant hyperammonemia with chronic nonalcoholic cirrhotic liver disease: Will admit to [facility], once oral intake safe with plan for [...] 16 minutes. Charges/Coding Visit Charges Inpatient E&M: 19269 Init Hosp L3 Procedures Hospitalists Procedures: 04011 Advncd Care Plan 30 Min 04/07/25 2147 <Electronically signed by Maria Guadalupe Shore MD> Cosigner Signature (if applicable): CC: AIRCRAFT LOADMASTER SUPERINTENDENT-C Josy Elias; Dr. Maria Guadalupe Shore MD~ Signed [facility] Work Phone: [phone]) 132-236808-27-2025 [facility]08-08-2025 Discharge summary Author Alber Dunn [facility] Note Date/Time March 11, 2025 10: 05pm [facility] Medical Records Department [address] [place] [address] Emergency Department Summary 03/11/25 MR#: [id number] Acct: [id number] Name: FRANKLIN ARCHULETA Rep #:[id number] : 1965 59 From: [...] <PAULETTE Roberts - Last Filed: 03/11/25 22:00> [facility] Medical History Diffuse abdominal pain [...] 70.2 H Lymph % (Auto) 12.6 L Haywood % (Auto) 10.9 H Eos % (Auto) [...] Dunn MD - Last Filed: 03/11/25 20:03> [facility] Narrative Medical decision making narrative: I have [...] 70.2 H Lymph % (Auto) 12.6 L Haywood % (Auto) 10.9 H Eos % (Auto) [...] if it continues to run high. Contact [facility]. Print Language: Bruneian Disposition Disposition: Home, Self Care What to do if you have Problems For any increased pain, shortness of breath, bleeding, nausea or vomiting, chestpain, or any unexpected problems, contact your Primary Care Provider. Call [facility] ([phone]) or report to the closest Emergency Room. Call 911 if necessary. 03/11/252204 <Electronically signed by Alber Dunn MD> Cosigner Signature (if applicable): 03/11/252199 <Electronically signed by Day CALDWELL> CC: YG Elias ~ Signed [facility] Work Phone: 1(286) 592-176807-27-2025 [facility]07-17-2025 [facility]07-16-2025 Discharge summary Author Alber Dunn [facility] Note Date/Time February 16, 2025 6:39 pm [facility] Medical Records Department [address] [place] [address] Emergency Department Summary 02/16/25 MR#: [id number] Acct: [id number] Name: FRANKLIN ARCHULETA Rep #:[id number] : 1965 59 From: [...] liver enzymes. Patient will be admitted to [facility]. History & Record Review Discussion w/independent historian: [...] diabetes mellitus Disposition Disposition: Acute Care Hospital [facility] What to do if you have Problems For any increased pain, shortness of breath, bleeding, nausea or vomiting, chestpain, or any unexpected problems, contact your Primary Care Provider. Call [facility] ([phone]) or report to the closest Emergency Room. Call 911 if necessary. 02/16/25 0849 <Electronically signed by Alber Dunn MD> Cosigner Signature (if applicable): CC: Dr. Jerald Sherwood MD ~ Signed [facility] Work Phone: 1(710) 280-122107-16-2025 Procedure [facility] 02-13-2025 Radiology Diagnostic study [facility]07-11-2025 Radiology Diagnostic study [facility]07-08-2025 Radiology Diagnostic study [facility]06-30-2025 Discharge summary Author Yaritza Leo [facility] Note Date/Time January 31, 2025 2:41 pm [facility] Medical Records Department [address] [place] [address] Discharge Summary 01/31/25 1217 MR#: [id number] Acct: [id number] Name: FRANKLIN ARCHULETA Rep #:[id number] : 1965 59 From: Yaritza Leo DO PCP: Dr. Jerald Sherwood MD Status:ADM I N Location: [place] [address] Providers Date of Admission: 01/28/25 Date of [...] 59-year-old male who presented from local senior care facility to which she was discharged on [...] Final Vancomycin Resist. E. faecalis GNR lactose geographic information system surveyor 01/28/25 06:15 Blood Culture (Wb) - Anticubital [...] Self Care Charges/Coding Visit Charges Inpatient E&M: 41592 Disch Hosp >30min 01/31/25 1441 <Electronically signed by Yaritza Leo DO> Cosigner Signature (if applicable): CC: Dr. Yaritza Leo DO; Dr. Jerald Sherwood MD~ Signed [facility] Work Phone: 1(812) 719-568806-30-2025 [facility]06-30-2025 Hospital Discharge instructionsAdditional Instructions 1. Goal bowel movements with lactulose is 2-3 bowel movements daily. If you are having more than 3 bowel movements daily please decrease your lactulose from 3 times daily to 2 times daily 2. It is very important that you are compliant with your medications and utilize them as directed Date of Discharge: 01/31/25[facility] Work Phone: [phone]) 503-933206-29-2025 Progress note Author Yaritza Leo [facility] Note Date/Time January 30, 2025 1:37 pm [facility] Medical Records Department [address] [place] [address] [place] [address] Progress Note - Hospitalist 01/30/25 0728 MR#: [id number] Acct: [id number] Name: FRANKLIN ARCHULETA Rep #:[id number] : 1965 59 From: Yaritza Leo DO PCP: Dr. Jerald Sherwood MD Status:ADM I N Location: [place] [address] Reason for Visit Reason for Visit: Fever [...] Neut % (Auto) 53.2, Lymph % (Auto) 20.0,Haywood % (Auto) 18.5 H, Eos % (Auto) [...] Preliminary GPC Poss Enterococcus sp GNR lactose geographic information system surveyor 01/28/25 03:10 Mucosa - Nose SARS-CoV-2, Influenza [...] Full code Charges/Coding Visit Charges Inpatient E&M: 46639 Subs Hosp L2 01/30/25 4190 <Electronically signed by Yaritza Leo DO> Cosigner Signature (if applicable): CC: ~ Signed [facility] Work Phone: 1(689) 348-213206-28-2025 Progress note Author Yaritza Leo [facility] Note Date/Time January 29, 2025 5:59 pm [facility] Medical Records Department [address] [place] [address] Progress Note - Hospitalist 01/29/25 0754 MR#: [id number] Acct: [id number] Name: FRANKLIN ARCHULETA Rep #:[id number] : 1965 59 From: Yaritza Leo DO PCP: Dr. Jerald Sherwood MD Status:ADM I N Location: [place] [address] Reason for Visit Reason for Visit: Fever [...] (Auto) 60.8, Lymph % (Auto) 17.1 L, Haywood % (Auto) 15.2 H, Eos % (Auto) [...] Full code Charges/Coding Visit Charges Inpatient E&M: 60285 Subs Hosp L2 01/29/25 1071 <Electronically signed by Yaritza Leo DO> Cosigner Signature (if applicable): CC: ~ Signed [facility] Work Phone: 1(302) 399-820006-27-2025 History and physical note Author Boone Izquierdo [facility] Note Date/Time January 28, 2025 7:26 am [facility] Medical Records Department [address] [place] [address] H&P Exam - Hospitalist 01/28/25 0710 MR#: [id number] Acct: [id number] Name: FRANKLIN ARCHULETA Rep #:[id number] : 1965 59 From: Boone Izquierdo DO PCP: Dr. Jerald Sherwood MD Status:REG E R Location: ED HPI - General General Date of Service: 01/28/25 Chief Complaint: Fever. HPI Narrative FRANKLIN ARCHULETA, is a 59 M who presents with fever from the skilled nursing. This ashely 59-year-old male with cirrhosis presents with fever and confusion from the skilled nursing. In emergency room, he was afebrile but [...] stable in the emergencyroom without fluid resuscitation. [facility] Medical History (Updated 01/28/25 @ 07:16 by [...] (Auto) 57.8, Lymph % (Auto) 18.8 L, Haywood % (Auto) 16.7 H, Eos % (Auto) [...] Clarity Cloudy, Urine pH 8.0, Ur Specific Weston 1.015, Urine Protein 100 H, Urine Glucose [...] bilateral basilar atelectatic pulmonary changes. Reading Location: [facility] Abdomen/Pelvis CT 01/28/25 05:12 IMPRESSION: Cirrhosis, collateral [...] correlate for possible hepatic colopathy. Reading Location: [place] [address] Assessment & Plan Assessment/Plan (1) Hepatic encephalopathy: [...] be continued. Charges/Coding Visit Charges Inpatient E&M: 44070 Init Hosp L3 01/28/25 0726 <Electronically signed by Boone Izquierdo DO> Cosigner Signature (if applicable): CC: Dr. Boone Izquierdo DO; Dr. Jerald Sherwood MD~ Signed [facility] Work Phone: 1(803) 486-500806-27-2025 History and physical note Author Boone Izquierdo [facility] Note Date/Time January 28, 2025 7:26 am [facility] Medical Records Department [address] [place] [address] H&P Exam - Hospitalist 01/28/25 0710 MR#: [id number] Acct: [id number] Name: FRANKLIN ARCHULETA Rep #:[id number] : 1965 59 From: Boone Izquierdo DO PCP: Dr. Jerald Sherwood MD Status:REG E R Location: ED HPI - General General Date of Service: 01/28/25 Chief Complaint: Fever. HPI Narrative FRANKLIN ARCHULETA, is a 59 M who presents with fever from the skilled nursing. This ashely 59-year-old male with cirrhosis presents with fever and confusion from the skilled nursing. In emergency room, he was afebrile but [...] stable in the emergencyroom without fluid resuscitation. [facility] Medical History (Updated 01/28/25 @ 07:16 by [...] (Auto) 57.8, Lymph % (Auto) 18.8 L, Haywood % (Auto) 16.7 H, Eos % (Auto) [...] Clarity Cloudy, Urine pH 8.0, Ur Specific Weston 1.015, Urine Protein 100 H, Urine Glucose [...] be continued. Charges/Coding Visit Charges Inpatient E&M: 96473 Init Hosp L3 01/28/25 0726 <Electronically signed by Boone Izquierdo DO> Cosigner Signature (if applicable): CC: Dr. Boone Izquierdo DO; Dr. Jerald Sherwood MD~ Signed [facility] Work Phone: 1(375) [phone] Discharge summary Author Danny Hutton [facility] Note Date/Time January 28, 2025 6:59 am [facility] Medical Records Department [address] [place] [address] Emergency Department Summary 01/28/25 MR#: [id number] Acct: [id number] Name: FRANKLIN ARCHULETA Rep #:[id number] : 1965 59 From: Danny tapiaett DO PCP: Dr. Jerald Sherwood MD Status:REG E R Location: ED HPI History of Present Illness Chief Complaint: Confusion Narrative Narrative: Chief complaint and HPI: Fever and confusion. 59-year-old male with past medical history DM2, ABBY, HTN, HLD, liver 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 presents from [facility] for fever and confusion. History taken by [...] diarrhea, constipation, dysuria. I personally spoke with [facility] staff. The nurse is new to taking [...] Alert, grossly intact, sensation intact Psych: Cooperative [facility] Medical History Umbilical hernia Chronic hyponatremia Weakness Diarrhea Sepsis Acidosis, lactic Acute hypotension Acute UTI Chronic hypotension Obesity (BMI 30-39.9) Chronic back pain SIABEL (acute kidney injury) Hypotension Hepatic encephalopathy Hyperbilirubinemia [...] liver 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 presents from [facility] for fever and confusion. Patient is a poor historian therefore history taken by EMS as well as [facility] nurse. Reported patient developed a fever of 101 ?F this evening prior to arrival. No meds were given. Nurse as well as myself does not know the patient's baseline mental status although nursing staff here that note is the patient states that wax and wanes. Nurse there states that multiple techs felt that the patient wasconfused at [facility] and that he was asking about people [...] (Auto) 57.8 Lymph % (Auto) 18.8 L Haywood % (Auto) 16.7 H Eos % (Auto) [...] Color Urine Clarity Urine pH Ur Specific Weston Urine Protein Urine Glucose (UA) Urine Ketones Urine Occult Blood Urine Nitrite Urine Bilirubin Urine Urobilinogen Ur Leukocyte Esterase Urine RBC Urine WBC Ur Squamous Epith Cells Urine Bacteria Urine Mucus 01/28/25 01/28/25 04:33 04:58 WBC RBC Hgb Hct MCV MCH MCHC RDW Std Deviation RDW Coeff of Francis Plt Count MPV Immature Gran % (Auto) Neut % (Auto) Lymph % (Auto) Haywood % (Auto) Eos % (Auto) Baso % [...] Clarity Cloudy Urine pH 8.0 Ur Specific Weston 1.015 Urine Protein 100 H Urine Glucose [...] bilateral basilar atelectatic pulmonary changes. [facility]Pelvis CT 01/28/25 05:12 IMPRESSION: Cirrhosis, [...] correlate for possible hepatic colopathy. Reading Location: [place] [address] Discharge Plan Triage Chief Complaint: Confusion ED [...] MD [Primary Care Provider] - Print Language: Bruneian What to do if you have Problems For any increased pain, shortness of breath, bleeding, nausea or vomiting, chestpain, or any unexpected problems, contact your Primary Care Provider. Call [facility] ([phone]) or report to the closest Emergency Room. Call 911 if necessary. 01/28/25 0659 <Electronically signed by Danny Hutton DO> Cosigner Signature (if applicable): CC: Dr. Jerald Sherwood MD ~ Signed [facility] Work Phone: 1(451) 588-743706-27-2025 Radiology Diagnostic study [facility]06-27-2025 Radiology Diagnostic study [facility]06-20-2025 Discharge summary Author Anurag Irene [facility] Note Date/Time January 21, 2025 11:1 2am [facility] Medical Records Department [address] [facility] [place] [address] Transfer to [facility] MR#: [id number] Acct: [id number] Name: FRANKLIN ARCHULETA Rep #:[id number] : 1965 59 From: Anurag Lucero PCP: YG Pena Status:ADM I N Certification of patient admission REQUIRED AT TIME OF ADMISSION. I CERTIFY THAT POST-HOSPITAL ECF SERVICES ARE REQUIRED TO BE GIVEN ON AN IN-PATIENT BASIS BECAUSE OF THE ABOVE NAMED PATIENT'S NEED FOR SENIOR LIVING CARE ON A CONTINUING BASIS FOR THE [...] (Auto) 63.5, Lymph % (Auto) 16.3 L, Haywood % (Auto) 11.9 H, Eos % (Auto) [...] Instructions Additional Instructions / Restrictions: Follow-up in [facility] hepatology/GI. Discharge Orders/Prescriptions Prescriptions: New spironolactone [...] in before D/C Order can be placed): Jail Facility 01/21/25 1112 <Electronically signed by Anurag Irene MD> Cosigner Signature (if applicable): CC: YG Elias; Dr. Aleyda Bautista MD; Dr. Yaritza Leo DO; Dr. Cielo Tovar MD; Dr. Jefferson Malave MD ~ [facility] Work Phone: 1(191) 454-770006-20-2025 Discharge summary Author Anurag Irene [facility] Note Date/Time January 21, 2025 1:29 pm [facility] Medical Records Department [address] [place] [address] Discharge Summary 01/21/25 1112 MR#: [id number] Acct: [id number] Name: FRANKLIN ARCHULETA Rep #:[id number] : 1965 59 From: Anurag Lucero PCP: YG Pena Status:ADM I N Location: [place] [address] Providers Date of Admission: 01/09/25 Date of Discharge: 01/21/25 Primary Care Physician: YG Pena Consultations 01/09/25 15:46 Consult: Workers Compensation Claims Adjuster / Pulmonary Medicine Routine Consulting Provider: Intensivists/Pulmonary [...] (Auto) 63.5, Lymph % (Auto) 16.3 L, Haywood % (Auto) 11.9 H, Eos % (Auto) [...] solution (Constulose) 15 ml PO TID PRN vrekjzaihdfo55/27/25 L.acidophil,salivari-Bifido bifidum-Strep thermoph 175 mg capsule 1 [...] Instructions Additional Instructions / Restrictions: Follow-up in [facility] hepatology/GI. Discharge Orders/Prescriptions Prescriptions: New spironolactone [...] in before D/C Order can be placed): Jail Facility Charges/Coding Visit Charges Inpatient E&M: 50309 Disch Hosp >30min 01/21/25 1117 <Electronically signed [...] Elias; Dr. Anurag Irene MD ~* Signed [facility] Work Phone: 1(988) 915-948006-20-2025 [facility]06-19-2025 Progress note Author Anurag Irene [facility] Note Date/Time January 20, 2025 2:40 pm [facility] Medical Records Department [address] [place] [address] Progress Note - Hospitalist 01/20/25 1436 MR#: [id number] Acct: [id number] Name: FRANKLIN ARCHULETA Rep #:[id number] : 1965 59 From: Anurag Lucero PCP: YG Pena Status:ADM I N Location: [place] [address] Reason for Visit Reason for Visit: Diagnoses [...] (Auto) 63.5, Lymph % (Auto) 16.3 L, Haywood % (Auto) 11.9 H, Eos % (Auto) [...] (Auto) 63.5, Lymph % (Auto) 16.3 L, Haywood % (Auto) 11.9 H, Eos % (Auto) [...] 167 H Charges/Coding Visit Charges Inpatient E&M: 93165 Subs Hosp L2 01/20/25 1440 <Electronically signed by Anurag Irene MD> Cosigner Signature (if applicable): CC: ~ Signed [facility] Work Phone: 1(687) 737-317906-18-2025 Progress note Author Anurag Irene [facility] Note Date/Time January 19, 2025 4:46 pm [facility] Medical Records Department [address] [place] [address] Progress Note - Hospitalist 01/19/2519 MR#: [id number] Acct: [id number] Name: FRANKLIN ARCHULETA Rep #:[id number] : 1965 59 From: Anurag Lucero PCP: YG Pena Status:ADM I N Location: [place] [address] Reason for Visit Reason for Visit: Diagnoses [...] WBCs % 75.6, Fluid Neutrophils 20, Fluid Wbguvncmrki56, Fluid Monocytes 3, Fluid Macrophages 46, Fluid [...] (Auto) 67.7, Lymph % (Auto) 13.6 L, Haywood % (Auto) 11.0 H, Eos % (Auto) [...] gas. Correlate with surgical history. Reading Location: [id number] Paracentesis Ultrasound 01/18/25 13:08 IMPRESSION: Right lower quadrant marker was applied for paracentesis with drain the fluid volume of 2650 cc. Reading Location: [place] [address] Physical Exam Narrative Seen and examined Discussed with the pain management. Plan for epidural analgesia today for pain control. BYOER cirrhosis Patient admitted for complaint of sepsis [...] WBCs % 75.6, Fluid Neutrophils 20, Fluid Rvxkmutdcfd21, Fluid Monocytes 3, Fluid Macrophages 46, Fluid [...] (Auto) 67.7, Lymph % (Auto) 13.6 L, Haywood % (Auto) 11.0 H, Eos % (Auto) [...] 198 H Charges/Coding Visit Charges Inpatient E&M: 57144 Subs Hosp L2 01/19/25 1646 <Electronically signed by Anurag Irene MD> Cosigner Signature (if applicable): CC: ~ Signed [facility] Work Phone: 1(141) 964-934006-18-2025 Radiology Diagnostic study [facility]06-17-2025 Radiology Diagnostic study [facility]06-17-2025 Progress note Author Anurag Irene [facility] Note Date/Time January 18, 2025 1:14 pm [facility] Medical Records Department [address] [place] [address] Progress Note - Hospitalist 01/18/25 1302 MR#: [id number] Acct: [id number] Name: FRANKLIN ARCHULETA Rep #:[id number] : 1965 59 From: Anuarg Lucero PCP: YG Pena Status:ADM I N Location: [place] [address] Reason for Visit Reason for Visit: Diagnoses [...] (Auto) 68.1, Lymph % (Auto) 14.0 L, Haywood % (Auto) 10.0, Eos % (Auto) 6.1 [...] for epidural analgesia today [facility] control[facility] of [facility] due [...] prophylaxis: SCDs Charges/Coding Visit Charges Inpatient E&M: 84125 Subs Hosp L2 01/18/25 1314 <Electronically signed by Anurag Irene MD> Cosigner Signature (if applicable): CC: ~ Signed [facility] Work Phone: [phone]) 222-697206-17-2025 Consult note Author Mohit Santos [facility] Note Date/Time January 18, 2025 12:4 9pm [facility] Medical Records Department [address] [place] [address] Pre-Anesthesia Evaluation 01/18/25 1246 MR#: [id number] Acct: [id number] Name: FRANKLIN ARCHULETA Rep #:[id number] : 1965 59 From: Mohit Santos MD PCP: YG Pena Status:ADM I N Y Race: C Location: [place] [address] 2-1 ASA Classification* ASA Classification ASA Classification: [...] Preop lab: CBC WBC 8.1 K/mm3 (4.4-11.0) 06/17/25 05:01/18/25 RBC 2.56 M/mm3 (4.6-6.2) L 01/18/25 [...] 01/18/25 TSH 0.826 uIU/mL (0.358-3.740) 09/04/24 23:07 02/0 08/28 COAG PT 22.9 SECONDS (11.7-14.9) H 01/18/25 05:21 01/02 02/25 Pre-Assessment Diagnosis/Proposed Procedure Planned Operative Procedure(s): Lumbar steroid injection L1/L2 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 Hx Hospitalization Any Problems With Anesthesia No [...] am of surgery tylenol PONV PONV - manager commercial real estate: PONV - manager commercial real estate Female HX of Motion Sickness HX of N/V After Surgery Non-Smoker Duration of Surgery greater than 60 minutes Number of Risk Factors PONV Score Height & Weight Height & Weight: Anesthesia: Height & Weight Height 5 ft 9 in 01/17/25 14:51 Weight: 111.3 kg 01/18/25 08:57 Body Mass Index (BMI) 36.2 01/18/25 03:51 Respiratory Assessment Respiratory Assessment - manager commercial real estate: Respiratory Tract Infection Hx - manager commercial real estate Hx Respiratory Tract Infection No 01/18/25 09:01 STOP Sleep Apnea STOP Sleep Apnea - manager commercial real estate: STOP Sleep Apnea - manager commercial real estate Hx Hypertension No 01/10/25 10:46 Hx Sleep [...] Tobacco Use History Tobacco Use History - manager 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 real estate: Tobacco Use History - manager commercial real estate Tobacco Use Smoking Status Former smoker 01/10/25 09:20 Hx Tobacco Use Yes 01/09/25 15:31 Years Smoking Packs Smoked per Day Smoking Cessation Date was Yes - quit smoking within 15 01/09/25 15:31 within the last 15 years years Hx Smoking Cessation Date 05/04/24 01/09/25 15:31 Hx Smoking Cessation Counseling Hematologic Medial History Hematologic Hx - manager commercial real estate: 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 Hx of Blood Transfusion No 01/09/25 15:31 [...] confused, unrespo /Reproduction History /Reproductive History - manager commercial real estate: /Reproductive Hx- manager commercial real estate Hx Now No 01/18/25 09:01 Gestational Age [...] mls @ 15 mls/hr 01/09/25 15:34 IV .[id number] PRN Saline Flush Sodium Chloride 250 mls @ 15 mls/hr 01/09/25 15:34 IV .Z29K89S PRN Additional IVPB Infusion Sodium Chloride 1,000 mls @ 15 mls/hr 01/18/25 12:45 IV .Q48H [facility] Insulin Glargine 20 unit 01/09/25 22:00 01/17/25 21:05 Insulin Glargine-Yfgn 100 Unit/Ml Pen SC 20 unit QHS [facility] Administration Insulin Glargine 20 unit 01/10/25 10:00 01/18/25 11:31 Insulin Glargine-Yfgn 100 Unit/Ml Pen SC Not Given DAILY [facility] Insulin Human Lispro 0 unit 01/09/25 16:00 01/18/25 11:33 Insulin Lispro 100 Unit/Ml Insuln.Pen SC Not Given ACHS [facility] Protocol Lactulose 10 gm 01/09/25 15:46 01/12/25 14:34 Lactulose 20 Gm/30 Ml Udc PO 10 gm TID PRN Administration constipation Magnesium Chloride 128 mg 01/10/25 10:00 01/18/25 11:31 Magnesium Chloride 64 Mg Delay Rel.Tablet PO Not Given DAILY [facility] Midodrine 10 mg 01/09/25 17:00 01/18/25 12:07 Midodrine Hcl 5 Mg Tablet PO 10 mg TIDCM [facility] Administration Morphine Sulfate 1 mg [...] Tablet PO Not Given DAILY [facility] Potassium Phos/Sodium Phos 1 packet 01/09/25 22:00 01/18/25 11:32 Na Biphos/Potassium Phosphate Packet PO Not Given BID KRYSTIN Rifaximin 550 mg 01/09/25 22:00 01/17/25 21:06 Rifaximin 550 Mg Tablet PO 550 mg BID KRYSTIN Administration Sodium Bicarbonate 650 mg 01/09/25 22:00 01/18/25 11:32 Sodium Bicarbonate 650 Mg Tablet PO Not Given BID [facility] Sodium Chloride 10 - 40 ml 01/09/25 15:34 01/18/25 08:33 0.9% Saline Lock 10 Ml Syringe IV 20 ml UD PRN Administration SALINE FLUSH Thiamine HCl 100 mg 01/10/25 10:00 01/18/25 11:32 Thiamine Hydrochloride 100 Mg Tablet PO Not Given DAILY [facility] Medical History (Updated 01/17/25 @ [...] MD Cosigner Signature: Date CC: ~ Signed [facility] Work Phone: 1(224) 765-130706-16-2025 Consult note Author Buster Carmichael [facility] Note Date/Time January 17, 2025 4:57 pm [facility] Medical Records Department [address] [place] [address] Consultation 01/17/25 1522 MR#: [id number] Acct: [id number] Name: GEREMIASFRANKLIN CARMELA Rep #:[id number] : 1965 59 From: Buster brewster MD PCP: Josy Elias, AIRCRAFT LOADMASTER SUPERINTENDENT-C Status:ADM I N [facility] Assessment & Plan Assessment/Plan (1) Spinal [...] be 8- 10/10 in severity when moving. [facility] Medical History (Updated 01/17/25 @ [...] (Auto) 67.2, Lymph % (Auto) 12.9 L, Haywood % (Auto) 11.5 H, Eos % (Auto) 6.8 H, Baso % (Auto) 0.5, Absolute Neuts (auto) 5.7, Absolute Lymphs (auto) 1.09, Nucleated RBC % 0 01/17/25 06:28: POC Glucose 173 H 01/17/25 11:26: POC Glucose 141 H 01/17/25 1657 <Electronically signed by Buster Carmichael MD> Cosigner Signature (if applicable): CC: YG Elias~ Signed [facility] Work Phone: 1(596) 668-144506-16-2025 Progress note Author Anurag Irene [facility] Note Date/Time January 17, 2025 2:32 pm [facility] Medical Records Department [address] [place] [address] Progress Note - Hospitalist 01/17/25 1420 MR#: [id number] Acct: [id number] Name: FRANKLIN ARCHULETA Rep #:[id number] : 1965 59 From: Anurag Lucero PCP: YG Pena Status:ADM I N Location: [place] [address] Reason for Visit Reason for Visit: Diagnoses [...] (Auto) 67.2, Lymph % (Auto) 12.9 L, Haywood % (Auto) 11.5 H, Eos % (Auto) [...] prophylaxis: SCDs Charges/Coding Visit Charges Inpatient E&M: 95660 Subs Hosp L2 01/17/25 1432 <Electronically signed by Anurag Irene MD> Cosigner Signature (if applicable): CC: ~ Signed [facility] Work Phone: 1(517) 228-818206-16-2025 [facility]06-15-2025 Progress note Author Cielo Tovar [facility] Note Date/Time January 16, 2025 3:37 pm [facility] Medical Records Department [address] [place] [address] Progress Note 01/16/25 1236 MR#: [id number] Acct: [id number] Name: FRANKLIN ARCHULETA Rep #:[id number] : 1965 59 From: Cielo Tovar MD PCP: YG Pena Status:ADM I N Location: [place] [address] Subjective Subjective Patient seen and examined. He [...] (Auto) 64.9, Lymph % (Auto) 14.6 L, Haywood % (Auto) 12.7 H, Eos % (Auto) [...] at home. Charges/Coding Visit Charges Inpatient E&M: 20368 Subs Hosp L2 01/16/25 1538 <Electronically signed by Cielo Tovar MD> Cielo Tovar MD Cosigner Signature (if applicable): CC: ~ Signed [facility] Work Phone: 1(546) 448-857606-14-2025 Consult note Author Buster Hahn [facility] Note Date/Time January 15, 2025 6:46 pm [facility] Medical Records Department [address] [place] [address] Pharmacokinetic/Renal -Consult 01/15/25 1846 MR#: [id number] Acct: [id number] Name: FRANKLIN ARCHULETA Rep #:[id number] : 1965 59 From: Buster Lopes [facility] PCP: YG Pena Status:ADM I N Y Location: [place] [address] Consult Antibiotic Management Pharmacy has been consulted [...] Vancomycin (random level 01/16/25 at 0600) 01/15/25 6476 <Electronically signed by Bustre Nieves [facility]> Date _ Buster Hahn [facility] Cosigner Signature (if applicable): Date CC: ~ Signed [facility] Work Phone: 1(220) 714-959906-14-2025 Progress note Author Cielo Tovar [facility] Note Date/Time January 15, 2025 6:29 pm [facility] Medical Records Department [address] [place] [address] Progress Note 01/15/25 1321 MR#: [id number] Acct: [id number] Name: FRANKLIN ARCHULETA Rep #:[id number] : 1965 59 From: Cielo Tovar MD PCP: YG Pena Status:ADM I N Location: [place] [address] Subjective Subjective Patient seen and examined. He [...] (Auto) 65.6, Lymph % (Auto) 13.2 L, Haywood % (Auto) 13.6 H, Eos % (Auto) [...] at multiple levels, as described. Reading Location: [place] [address] Physical Exam Const alert, oriented x3 and [...] at home. Charges/Coding Visit Charges Inpatient E&M: 70206 Subs Hosp L2 01/15/25 0195 <Electronically signed by Cielo Tovar MD> Cielo Tovar MD Cosigner Signature (if applicable): CC: ~ Signed [facility] Work Phone: 1(351) 134-538606-13-2025 Consult note Author Andreia Carvalho [facility] Note Date/Time January 14, 2025 8:04 pm [facility] Medical Records Department [address] [place] [address] Pharmacokinetic/Renal -Consult 01/14/252002 MR#: [id number] Acct: [id number] Name: FRANKLIN ARCHULETA Rep #:[id number] : 1965 59 From: Andreia Carvalho PCP: YG Pena Status:ADM I N Y Location: [place] [address] Consult Antibiotic Management Pharmacy has been consulted [...] Signature (if applicable): Date CC: ~ Signed [facility] Work Phone: 1(271) 883-286706-13-2025 Progress note Author Cielo Tovar [facility] Note Date/Time January 14, 2025 5:19 pm [facility] Medical Records Department [address] [place] [address] Progress Note 01/14/25 1706 MR#: [id number] Acct: [id number] Name: FRANKLIN ARCHULETA Rep #:[id number] : 1965 59 From: Cielo Tovar MD PCP: YG Pena Status:ADM I N Location: [place] [address] Subjective Subjective Patient seen and examined. He [...] (Auto) 65.3, Lymph % (Auto) 13.5 L, Haywood % (Auto) 14.3 H, Eos % (Auto) [...] at multiple levels, as described. Reading Location: [place] [address] Thoracic Spine MRI 01/13/25 10:30 IMPRESSION: Abnormal [...] no cord compression Reading Location: [facility] Chest CT 01/14/25 08:06 IMPRESSION: 1. Partially visualized severe degenerative changes of T11-T12 with areas of erosive changes and lytic lesions. Metastasis can not be excluded. 2. Cirrhosis and ascites. 3. Mild lung emphysema. No suspicious nodules or focal consolidation. Reading Location: [facility] Physical Exam Const alert, oriented [...] medically stable. Charges/Coding Visit Charges Inpatient E&M: 54949 Subs Hosp L2 01/14/25 0325 <Electronically signed by Cielo Tovar MD> Cielo Tovar MD Cosigner Signature (if applicable): CC: ~ Signed [facility] Work Phone: 1(783) 574-769206-13-2025 Radiology Diagnostic study [facility]06-12-2025 Progress note Author [facility] Note Date/Time January 13, 2025 6:28 pm [facility] Medical Records Department [address] [place] [address] Progress Note 01/13/25 1517 MR#: [id number] Acct: [id number] Name: FRANKLIN ARCHULETA Rep #:[id number] : 1965 59 From: Cielo Tovar MD PCP: YG Pena Status:ADM I N Location: [place] [address] Subjective Subjective Patient seen and examined. He [...] (Auto) 65.6, Lymph % (Auto) 14.4 L, Haywood % (Auto) 13.7 H, Eos % (Auto) [...] medically stable. Charges/Coding Visit Charges Inpatient E&M: 80769 Subs Hosp L2 01/13/258 <Electronically signed by Cielo Tovar MD> Cielo Tovar MD Cosigner Signature (if applicable): CC: ~ Signed [facility] Work Phone: 1(706) 708-859506-12-2025 Consult note Author Francheska Montoya [facility] Note Date/Time January 13, 2025 9:36 am [facility] Medical Records Department [address] [place] [address] Pharmacokinetic/Renal -Consult 01/13/25 0934 MR#: [id number] Acct: [id number] Name: FRANKLIN ARCHULETA Rep #:[id number] : 1965 59 From: Francheska Mcfarlane PCP: YG Pena Status:ADM I N Y Location: [place] [address]- Consult Antibiotic Management Pharmacy has been consulted [...] Signature (if applicable): Date CC: ~ Signed [facility] Work Phone: 1(753) 886-524606-11-2025 Progress note Author Cielo Tovar [facility] Note Date/Time January 12, 2025 4:51 pm [facility] Medical Records Department [address] [place] [address] Progress Note 01/12/251645 MR#: [id number] Acct: [id number] Name: FRANKLIN ARCHULETA Rep #:[id number] : 1965 59 From: Cielo Tovar MD PCP: YG Pena Status:ADM I N Location: [place] [address] Subjective Subjective Patient seen and examined. He [...] (Auto) 68.2, Lymph % (Auto) 11.6 L, Haywood % (Auto) 12.1 H, Eos % (Auto) [...] his facility. Charges/Coding Visit Charges Inpatient E&M: 95494 Subs Hosp L2 01/12/25 1651 <Electronically signed by Cielo Tovar MD> Cielo Tovar MD Cosigner Signature (if applicable): CC: ~ Signed [facility] Work Phone: 1(858) 353-213406-11-2025 Consult note Author Dilcia Vanessa [facility] Note Date/Time January 11, 2025 10:4 8pm [facility] Medical Records Department [address] [place] [address] Pharmacokinetic/Renal -Consult 01/11/251942 MR#: [id number] Acct: [id number] Name: FRANKLIN ARCHULETA Rep #:[id number] : 1965 59 From: Dilcia Vanessa PCP: YG Pena Status:ADM I N Y Location: [place] [address] Consult Antibiotic Management Pharmacy has been consulted [...] Dilcia montalvo> Date _ Dilcia Vanessa 01/11/25 7142 <Electronically signed by Yaritza Holland> Eduardoigner Signature (if applicable): Date Yaritza Leo DO CC: ~ Signed [facility] Work Phone: [phone]) 987-739806-10-2025 Progress note Author Cielo Tovar [facility] Note Date/Time January 11, 2025 5:51 pm [facility] Medical Records Department [address] [place] [address] Progress Note 01/11/25 1510 MR#: [id number] Acct: [id number] Name: FRANKLIN ARCHULETA Rep #:[id number] : 1965 59 From: Cielo Tovar MD PCP: Josy Elias NP-C Status:ADM I N Location: [place] [address] Subjective Subjective Patient seen and examined. He [...] % (Auto) Cancelled, Lymph % (Auto) Cancelled, Haywood % (Auto) Cancelled, Eos % (Auto) Cancelled, [...] Drop Cells Cancelled, Ovalocytes Cancelled, Stomatocytes Cancelled, Castellon-Reasnor Bodies Cancelled, [place] Cells Cancelled, Bite Cells Cancelled, Crenated Cell [...] (Auto) 69.6, Lymph % (Auto) 12.6 L, Haywood % (Auto) 11.8 H, Eos % (Auto) [...] of anemia Charges/Coding Visit Charges Inpatient E&M: 56511 Subs Hosp L2 01/11/25 5673 <Electronically signed by Cielo Tovar MD> Cielo Tovar MD Cosigner Signature (if applicable): CC: ~ Signed [facility] Work Phone: [phone]) 778-781306-10-2025 Consult note Author Jefferson Malave [facility] Note Date/Time January 11, 2025 4:41 pm [facility] Medical Records Department [address] [place] [address] Consultation - Surgical 01/11/25 1634 MR#: [id number] Acct: [id number] Name: FRANKLIN ARCHULETA Rep #:[id number] : 1965 59 From: Jefferson Malave MD PCP: Josy Elias NP-C Status:ADM I N Location: [place] [address] Assessment & Plan Assessment/Plan (1) Umbilical hernia: [...] findings on CT consistent with portal hypertension. [facility] Medical History (Updated 01/11/25 @ [...] % (Auto) Cancelled, Lymph % (Auto) Cancelled, Haywood % (Auto) Cancelled, Eos % (Auto) Cancelled, [...] Drop Cells Cancelled, Ovalocytes Cancelled, Stomatocytes Cancelled, Castellon-Reasnor Bodies Cancelled, [place] Cells Cancelled, Bite Cells [...] (Auto) 69.6, Lymph % (Auto) 12.6 L, Haywood % (Auto) 11.8 H, Eos % (Auto) [...] 48 hours. Charges/Coding Visit Charges Inpatient E&M: 41445 Init Hosp L3 01/11/25 1641 <Electronically signed by Jefferson Malave MD> Cosigner Signature (if applicable): CC: YG Elias~ Signed [facility] Work Phone: 1(356) 690-653806-10-2025 Progress note Author Bola Meraz [facility] Note Date/Time January 11, 2025 9:07 am [facility] Medical Records Department [address] [place] [address] Progress Note - Workers Compensation Claims Adjuster 01/11/25721 MR#: [id number] Acct: [id number] Name: FRANKLIN ARCHULETA Rep #:[id number] : [...] scheduled midodrine. This note was generated with [employer] dictation software. It may contain incorrectwords, spelling, [...] % (Auto) Cancelled, Lymph % (Auto) Cancelled, [place] % (Auto) Cancelled, Eos % (Auto) Cancelled, [...] Drop Cells Cancelled, Ovalocytes Cancelled, Stomatocytes Cancelled, Castellon-Reasnor Bodies Cancelled, [place] Cells Cancelled, Bite Cells Cancelled, Crenated Cell [...] (Auto) 69.6, Lymph % (Auto) 12.6 L, Haywood % (Auto) 11.8 H, Eos % (Auto) [...] hypertension. No liver masses identified. Reading Location: [facility] Physical Exam Const alert, oriented [...] flat affect Charges/Coding Visit Charges Inpatient E&M: 01827 Subs Hosp L2 01/11/25 0907 <Electronically signed by Bola Meraz DO> Cosigner Signature (if applicable): CC: ~ Signed [facility] Work Phone: 1(320) 628-229806-10-2025 Consult note Author Boone Garcia [facility] Note Date/Time January 11, 2025 2:14 am [facility] Medical Records Department [address] [place] [address] Pharmacokinetic/Renal -Consult 01/11/25 0211 MR#: [id number] Acct: [id number] Name: FRANKLIN ARCHULETA Rep #:[id number] : [...] Signature (if applicable): Date CC: ~ Signed [facility] Work Phone: 1(136) 907-841506-09-2025 Progress note Author [facility] Note Date/Time January 10, 2025 6:23p [facility] Medical Records Department [address] [place] [address] Progress Note 01/10/25 1816 MR#: [id number] Acct: [id number] Name: FRANKLIN ARCHULETA Rep #:[id number] : [...] % (Auto) Cancelled, Lymph % (Auto) Cancelled, Haywood % (Auto) Cancelled, Eos % (Auto) Cancelled, [...] Drop Cells Cancelled, Ovalocytes Cancelled, Stomatocytes Cancelled, Castellon-Reasnor Bodies Cancelled, [place] Cells Cancelled, Bite Cells Cancelled, Crenated Cell [...] 76.1 H, Lymph % (Auto) 8.8 L, Haywood % (Auto) 8.2, Eos % (Auto) 5.9 [...] prophylaxis: Heparin Charges/Coding Visit Charges Inpatient E&M: 90625 Subs Hosp L3 01/10/25 1823 <Electronically signed by Cielo Tovar MD> Cielo Tovar MD Cosigner Signature (if applicable): CC: ~ Signed [facility] Work Phone: 1(485) 745-282306-09-2025 Progress note Author Bola Meraz [facility] Note Date/Time January 10, 2025 8:52a m [facility] Medical Records Department [address] [place] [address] Progress Note - Workers Compensation Claims Adjuster 01/10/25 0700 MR#: [id number] Acct: [id number] Name: FRANKLIN ARCHULETA Rep #:[id number] : [...] for renal replacement therapy. 3. History of O[place]er liver cirrhosis/history of hepatic encephalopathy/chronic hypotension/GERD/diabetes mellitus Complicates care, management, recovery and prognosis. Continue home medicationsas indicated. Continue scheduled midodrine. This note was generated with [employer] dictation software. It may contain incorrectwords, spelling, [...] 80.6 H, Lymph % (Auto) 7.2 L, Haywood % (Auto) 6.7, Eos % (Auto) 4.2, [...] % (Auto) Cancelled, Lymph % (Auto) Cancelled, Haywood % (Auto) Cancelled, Eos % (Auto) Cancelled, [...] Drop Cells Cancelled, Ovalocytes Cancelled, Stomatocytes Cancelled, Castellon-Reasnor Bodies Cancelled, Paloma Cells Cancelled, Bite Cells [...] 76.1 H, Lymph % (Auto) 8.8 L, Haywood % (Auto) 8.2, Eos % (Auto) 5.9 [...] hypertension. No liver masses identified. Reading Location: [facility] Physical Exam Const alert, oriented [...] flat affect Charges/Coding Visit Charges Inpatient E&M: 76931 Subs Hosp L3 01/10/25 0852 <Electronically signed by Bola Meraz DO> Cosigner Signature (if applicable): CC: ~ Signed [facility] Work Phone: 1([phone]) 194-601406-08-2025 Consult note Author Lupillo Robbins [facility] Note Date/Time January 09, 2025 8:03p m [facility] Medical Records Department [address] [place] [address] Consultation - Workers Compensation Claims Adjuster 01/09/25 1836 MR#: [id number] Acct: [id number] Name: FRANKLIN ARCHULETA Rep #:[id number] : 1965 59 From: Lupillo Robbins MD PCP: Josy Elias, AIRCRAFT LOADMASTER SUPERINTENDENT-C Status:ADM I N Location: ICU CVICU20 1-1 [...] Hepatic encephalopathy Hyperbilirubinemia Liver cirrhosis secondary to BOYRE (nonalcoholic steatohepatitis) HLD (hyperlipidemia) HTN (hypertension) Thrombocytopenia [...] mls @ 15 mls/hr 01/09/25 15:34 IV .[id number] PRN Saline Flush Sodium Chloride 250 mls @ 15 mls/hr 01/09/25 15:34 IV .[id number] PRN Additional IVPB Infusion Norepinephrine Bitartrate 8 mg 250 mls @ 9.375 mls/hr 01/09/25 15:46 01/09/2515:56 / Sodium Chloride CONT INF Not Given .[id number] [facility] Protocol 5 MCG/MIN Vancomycin IV-PHARMACY TO DOSE 500 mls @ 250 mls/hr 01/09/25 15:46 1 each/ Sodium Chloride IV PRN PRN Rx to Dose Protocol Meropenem 1 gm/ Sodium 120 mls @ 33 mls/hr 01/09/25 22:00 Chloride IV Q12 KRYSTIN Vancomycin HCl 1,000 mg in 200 mls @ 200 mls/hr 01/10/25 02:00 Vancomycin IV Q12H [facility] Insulin Glargine 20 unit 01/09/25 22:00 Insulin Glargine-Yfgn 100 Unit/Ml Pen SC QHS [facility] Insulin Glargine 20 unit 01/10/25 10:00 Insulin Glargine-Yfgn 100 Unit/Ml Pen SC DAILY [facility] Insulin Human Lispro 0 unit 01/09/25 16:00 01/09/25 16:27 Insulin Lispro 100 Unit/Ml Insuln.Pen SC Not Given ACHS [facility] Protocol Lactulose 10 gm 01/09/25 15:46 Lactulose 20 Gm/30 Ml Udc PO TID PRN constipation Magnesium Chloride 128 mg 01/10/25 10:00 Magnesium Chloride 64 Mg Delay Rel.Tablet PO DAILY [facility] Midodrine 10 mg 01/09/25 17:00 01/09/25 17:10 Midodrine Hcl 5 Mg Tablet PO 10 mg TIDCM [facility] Administration Ondansetron HCl 4 mg 01/09/25 15:46 Ondansetron 4 Mg/2 Ml Vial IV Q8H PRN PRN NAUSEA/VOMITING Pantoprazole Sodium 20 mg 01/10/25 10:00 Pantoprazole Sodium 20 Mg Tablet PO DAILY [facility] Potassium Phos/Sodium Phos 1 packet 01/09/25 22:00 Na Biphos/Potassium Phosphate Packet PO BID [facility] Rifaximin 550 mg 01/09/25 22:00 Rifaximin 550 Mg Tablet PO BID [facility] Sodium Bicarbonate 650 mg 01/09/25 22:00 Sodium Bicarbonate 650 Mg Tablet PO BID [facility] Sodium Chloride 10 - 40 ml 01/09/25 15:34 0.9% Saline Lock 10 Ml Syringe IV UD PRN SALINE FLUSH Thiamine HCl 100 mg 01/10/25 10:00 Thiamine Hydrochloride 100 Mg Tablet PO DAILY [facility] Vancomycin Protocol 1 lab 01/11/25 00:30 Vancomycin Trough/Random Due 01/11/25 02:30 DAILY [facility] Zinc Sulfate 50 mg 01/10/25 10:00 Zinc Sulfate 50 Mg Zinc (220 Mg) Oral Capsule PO DAILY [facility] Lab / Micro Data 01/09/25 [...] 80.6 H, Lymph % (Auto) 7.2 L, Haywood % (Auto) 6.7, Eos % (Auto) 4.2, [...] hypertension. No liver masses identified. [facility] Assessment and Plan [...] Signature (if applicable): CC: YG Elias~ Signed [facility] Work Phone: [phone] 617-336806-08-2025 Consult note Author Peter Carvajal [facility] Note Date/Time January 09, 2025 5:42p [facility] Medical Records Department [address] [place] [address] Pharmacokinetic/Renal -Consult 01/09/25 1602 MR#: [id number] Acct: [id number] Name: FRANKLIN ARCHULETA Rep #:[id number] : [...] Date Yaritza Leo DO CC: ~ Signed [facility] Work Phone: [phone]) [phone] History and physical note Author Yaritza Leo [facility] Note Date/Time January 09, 2025 5:41p m [facility] Medical Records Department [address] [facility] [place] [address] H&P Exam - Hospitalist 01/09/25 1408 MR#: [id number] Acct: [id number] Name: FRANKLIN ARCHULETA Rep #:[id number] : 1965 59 From: Yaritza Leo DO PCP: Josy Tannhof, AIRCRAFT LOADMASTER SUPERINTENDENT-C Status:ADM I N Location: ICU CVICU20 1- HPI - General General Date of Admission: 01/09/25 Date of Service: 01/09/25 Chief Complaint: Suprapubic abdominal pain HPI Narrative FRANKLIN ARCHULETA, is a 59 M who presented to the emergency department [facility] on 01/09/2025 due to back pain [...] medical history and currently resides at an [facility]. He denies any fever or [...] a repeat of 89/59 and pulse ox wdv405% on room air. CBC showed a leukocytosis [...] he was treated with 30 cc/kg bolus. [facility] Medical History (Updated 01/09/25 @ [...] 80.6 H, Lymph % (Auto) 7.2 L, Haywood % (Auto) 6.7, Eos % (Auto) 4.2, [...] hypertension. No liver masses identified. Reading [facility] Assessment & Plan Assessment/Plan (1) [...] currently 102/60) Charges/Coding Visit Charges Inpatient E&M: 69691 Init Hosp L3 01/09/25 1741 <Electronically signed by Yaritza Leo DO> Cosigner Signature (if applicable): CC: AIRCRAFT LOADMASTER SUPERINTENDENT-Pastora Elias; Dr. Yaritza Leo DO~ Signed [facility] Work Phone: [phone]) [phone] Discharge summary Author Breann Mendez [facility] Note Date/Time January 09, 2025 4:26p m [facility] Medical Records Department [address] [place] [address] Emergency Department Summary 01/09/25 MR#: [id number] Acct: [id number] Name: FRANKLIN ARCHULETA Rep #:[id number] : [...] denies urinary symptoms. Patient is from a skilled nursing and normally ambulates with a walker. Patient has history of cirrhosis and history of diabetes as well as high cholesterol. Patient has had prior paracentesis. Currently rates his pain about a 5 out of 10. He does not want thing for pain currently. [facility] Medical History Weakness Diarrhea Sepsis Acidosis, lactic [...] 80.6 H Lymph % (Auto) 7.2 L Haywood % (Auto) 6.7 Eos % (Auto) 4.2 [...] Clarity Turbid Urine pH 6.0 Ur Specific Weston 1.015 Urine Protein 500 H Urine Glucose [...] hypertension. No liver masses identified. Reading [facility] Critical Care Time Critical care time (excluding procedures): 30-74 minutes, Including time spent:,Discussing w/Patient &/or Family/Application Counselor, Discussing w/Consultants, ArrangingAdmission or Transfer, Performing [...] NP-C [Primary Care Provider] - Print Language: Bruneian Disposition Disposition: Acute Care Hospital [facility] What to do if you have Problems For any increased pain, shortness of breath, bleeding, nausea or vomiting, chestpain, or any unexpected problems, contact your Primary Care Provider. Call [facility] ([phone]) or report to the closest Emergency Room. Call 911 if necessary. 01/09/25 1626 <Electronically signed by Breann Mendez DO> Cosigner Signature (if applicable): CC: YG Elias ~ Signed [facility] Work Phone: [phone]) 946-904306-08-2025 Radiology Diagnostic study [facility]06-04-2025 Consult note Author Kourtney Reece [facility] Note Date/Time January 05, 2025 5:01p [facility] Medical Records Department [address] [place] [address] Counseling Note - Pharmacy 01/05/25 1447 MR#: [id number] Acct: [id number] Name: FRANKLIN ARCHULETA Rep #:[id number] : 1965 59 From: Kourtney Reece PCP: YG Pena Status:ADM I N Y Location: [place] [address] Pharmacy HI Med Reconciliation Pharmacy Service has performed discharge [...] solution (Constulose) 15 ml PO TID PRN myzaqgkvcfji11/27/25 L.acidophil,salivari-Bifido bifidum-Strep thermoph 175 mg capsule 1 [...] Signature (if applicable): Date CC: ~ Signed [facility] Work Phone: [phone] Discharge summary Author Hill Acuña [facility] Note Date/Time January 05, 2025 2:07p m [facility] Medical Records Department [address] [place] [address] Discharge Summary 01/05/25 1404 MR#: [id number] Acct: [id number] Name: FRANKLIN ARCHULETA Rep #:[id number] : 1965 59 From: Hill Acuña MD PCP: YG Pena Status:ADM I N Location: [place] [address] Providers Date of Admission: 01/02/25 Date of [...] requested for PT OT eval and social work msw to assist with discharge planning ? 01/03/2025; [...] was on metformin held did continue with [employer] ACHS with sliding scale coverage ? 01/03/2025; [...] solution (Constulose) 15 ml PO TID PRN pkdhlpdibigs46/27/25 L.acidophil,salivari-Bifido bifidum-Strep thermoph 175 mg capsule 1 [...] (Auto) 69.1, Lymph % (Auto) 13.4 L, Haywood % (Auto) 11.6 H, Eos % (Auto) [...] in before D/C Order can be placed): Jail Facility Charges/Coding Visit Charges Inpatient E&M: 91802 Disch Hosp >30min 01/05/25 1407 <Electronically signed by Hill Acuña MD> Cosigner Signature (if applicable): CC: YG Elias; Dr. Hill Acuña MD~ Signed [facility] Work Phone: [phone] Discharge summary Author Hill Acuña [facility] Note Date/Time January 05, 2025 2:04p m [facility] Medical Records Department [address] [place] [address] Transfer to [facility] MR#: [id number] Acct: [id number] Name: FRANKLIN ARCHULETA Rep #:[id number] : 1965 59 From: Hill Acuña MD PCP: YG Pena Status:ADM I N Certification of patient admission REQUIRED AT TIME OF ADMISSION. I CERTIFY THAT POST-HOSPITAL ECF SERVICES ARE REQUIRED TO BE GIVEN ON AN IN-PATIENT BASIS BECAUSE OF THE ABOVE NAMED PATIENT'S NEED FOR SENIOR LIVING CARE ON A CONTINUING BASIS FOR THE [...] requested for PT OT eval and social work msw to assist with discharge planning ? 01/03/2025; [...] in before D/C Order can be placed): Jail Facility 01/05/25 1404 <Electronically signed by Hill Acuña MD> Cosigner Signature (if applicable): CC: YG Elias; Dr. Buster Fucsh MD ~ [facility] Work Phone: [phone]) [phone] Progress note [facility] Note Date/Time January 05, 2025 11:01 am [facility] Medical Records Department [address] [place] [address] Progress Note - Hospitalist 01/05/25 0737 MR#: [id number] Acct: [id number] Name: FRANKLIN ARCHUELTA Rep #:[id number] : 1965 59 From: Hill Acuña MD PCP: YG Pena Status:ADM I N Location: [place] [address] Reason for Visit Reason for Visit: Diagnoses Acute kidney failure, unspecified (01/02/25) Unspecified fall, initial encounter (01/02/25) Subjective Subjective Patient seen blood glucose control not optimal further adjustment made to patient insulin regimen. Patient awaiting insurance precertification prior to transfer to [facility] Objective Data Objective Data Vital Signs: [...] (Auto) 69.1, Lymph % (Auto) 13.4 L, Haywood % (Auto) 11.6 H, Eos % (Auto) [...] requested for PT OT eval and social work msw to assist with discharge planning ? 01/03/2025; [...] SCDs for Charges/Coding Visit Charges Inpatient E&M: 98379 Subs Hosp L2 01/05/25 1101 <Electronically signed by Hill Acuña MD> Cosigner Signature (if applicable): CC: ~ Signed [facility] Work Phone: 1(410) 571-408106-03-2025 Progress note Author Hill Acuña [facility] Note Date/Time January 04, 2025 10:18 am [facility] Medical Records Department [address] [place] [address] Progress Note - Hospitalist 01/04/25 1014 MR#: [id number] Acct: [id number] Name: FRANKLIN ARCHULETA Rep #:[id number] : 1965 59 From: Hill Acuña MD PCP: YG Pena Status:ADM I N Location: [place] [address]- 1 Reason for Visit Reason for Visit: [...] requested for PT OT eval and social work msw to assist with discharge planning ? 01/03/2025; [...] SCDs for Charges/Coding Visit Charges Inpatient E&M: 07391 Subs Hosp L2 01/04/25 1018 <Electronically signed by Hill Acuña MD> Cosigner Signature (if applicable): CC: ~ Signed [facility] Work Phone: 1(643) 107-254406-02-2025 Progress note Author Hill Acuña [facility] Note Date/Time January 03, 2025 9:52a m [facility] Medical Records Department [address] [place] [address] Progress Note - Hospitalist 01/03/25 0839 MR#: [id number] Acct: [id number] Name: FRANKLIN ARCHULETA Rep #:[id number] : 1965 59 From: Hill Acuña MD PCP: BRITTANY PenaC Status:ADM I N Location: [place] [address] Reason for Visit Reason for Visit: Diagnoses [...] -315 / -315 Lab / Micro Data 01/03/25:29 01/03/25 05:29 Labs: Laboratory Results - last [...] (Auto) 67.5, Lymph % (Auto) 13.9 L, Haywood % (Auto) 11.5 H, Eos % (Auto) [...] requested for PT OT eval and social work msw to assist with discharge planning ? 01/03/2025; [...] SCDs for Charges/Coding Visit Charges Inpatient E&M: 86686 Subs Hosp L2 01/03/25 6452 <Electronically signed by Hill Acuña MD> Cosigner Signature (if applicable): CC: ~ Signed [facility] Work Phone: 1(611) 670-738806-01-2025 Progress note Author Hill Acuña [facility] Note Date/Time January 02, 2025 9:58a m [facility] Medical Records Department [address] [place] [address] Progress Note - Hospitalist 01/02/25 0736 MR#: [id number] Acct: [id number] Name: FRANKLIN ARCHULETA Rep #:[id number] : 1965 59 From: Hill Acuña MD PCP: Josy Elias, AIRCRAFT LOADMASTER SUPERINTENDENT-Pastora Status:ADM I N Location: [place] [address] Reason for Visit Reason for Visit: Diagnoses [...] (Auto) 68.0, Lymph % (Auto) 12.2 L, Haywood % (Auto) 11.9 H, Eos % (Auto) [...] insufficiency fracture again noted, unchanged. Reading Location: [id number] Brain CT 01/02/25 03:55 IMPRESSION: No intracranial hemorrhage, mass effect or calvarial fracture. Moderate volume loss, atrophy again noted. Mild left maxillary sinus disease appears mildly decreased from the prior study. Reading Location: [id number] Cervical Spine CT 01/02/25 03:55 IMPRESSION: No fracture or malalignment. Multilevel spondylosis/discogenic change greatest at C5-6 Reading Location: [facility] Physical Exam Narrative GENERAL: cooperative HEENT: [...] requested for PT OT eval and social work msw to assist with discharge planning 2. Severe [...] documentation, 38Minutes Charges/Coding Visit Charges Inpatient E&M: 33919 PROLNG IP/OBS E/M EA 15 MIN Multi Select Codes Visit Charges Visit Charges: 64084 PROLNG IP/OBS E/M EA 15 MIN 01/02/25 0958 <Electronically signed by Hill Acuña MD> Cosigner Signature (if applicable): CC: ~ Signed [facility] Work Phone: [phone]) [phone] History and physical note Author Buster Fuchs [facility] Note Date/Time January 02, 2025 6:44a m [facility] Medical Records Department [address] [place] [address] H&P Exam - Hospitalist 01/02/25 0556 MR#: [id number] Acct: [id number] Name: FRANKLIN ARCHULETA Rep #:[id number] : 1965 59 From: Buster duarte MD PCP: YG Pena Status:ADM I N Location: [place] [address] HPI - General General Date of Admission: [...] time he was transferred to 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 Was not considered to be a liver transplant candidate and was placed on anticoagulation. He has had a couple of readmissions for weakness and debility. Hecker to possibly have aUTI given a staghorn [...] Heis receiving potassium infusion in the ER. [facility] Medical History Weakness Diarrhea Sepsis [...] (Auto) 68.0, Lymph % (Auto) 12.2 L, Haywood % (Auto) 11.9 H, Eos % (Auto) [...] insufficiency fracture again noted, unchanged. Reading Location: [facility] Brain CT 01/02/25 03:55 IMPRESSION: No intracranial hemorrhage, mass effect or calvarial fracture. Moderate volume loss, atrophy again noted. Mild left maxillary sinus disease appears mildly decreased from the prior study. Reading Location: [facility] Cervical Spine CT 01/02/25 03:55 IMPRESSION: No fracture or malalignment. Multilevel spondylosis/discogenic change greatest at C5-6 Reading Location: [facility] Assessment & Plan Assessment/Plan (1) Fall: [...] once verified Charges/Coding Visit Charges Inpatient E&M: 64895 Init Hosp L2 01/02/25 0644 <Electronically signed by Buster Fuchs MD> Cosigner Signature (if applicable): CC: YG Elias; Dr. Buster Fuchs MD~ Signed [facility] Work Phone: 1([phone]) 235-384806-01-2025 Evaluation note* Diagnosis Onset Date Resolution Status [...] acidosis resolved January 7:00am Hepatic encephalopathy inactive ne 2024 7:00am Umbilical hernia inactive January [...] Hepatic encephalopathy acute Se ptember 2024 11:18pm [facility] Work Phone: 1(955) 478-843206-01-2025 Evaluation note* Diagnosis Onset Date Resolution Status Admit Date Acute kidney injury resolved January 02, 2025 6:06am Fall resolved January 02, 2025 6:06am Abnormal urinalysis acute January 09, 2025 2:16pm Acute UTI acute January 09, 2025 2:16pm ISABEL (acute kidney injury) acute January 09, 2025 2:16pm Compression fracture of thoracic spine, non-traumatic acute [facility] 2024 2:16pm Leukocytosis acute January 09 2:16pm Metabolic acidosis acute January 092024 2:16pm Sepsis resolved January 09, 2025 2:16pm Lactic acidosis resolved January 09, 2025 2:16pm Spinal stenosis, lumbar zuleyma on with neurogenic claudication inactive Jan 2:16pm Umbilical hernia inactive January 2:16pm Abnormal urinalysis acute January 28, 2025 7:00am Acute UTI acute January 28 7:00am Lactic acidosis resolved January 7:00am Hepatic encephalopathy inactive ne 2024 7:00am Umbilical hernia inactive January [...] 25, 2025 4:13pm Diffuse abdominal pain inactive [facility] 2024 4:13pm Elevated liver enzymes inactive [facility] 2024 4:13pm Hepatic encephalopathy inactive [facility] 2024 4:13pm Hyperammonemia inactive February 25, 2025 4:13pm Hepatic cirrhosis acute March 10, 2025 1:52pm Hepatic encephalopathy acute Se pt2024 9:24pm [facility] Work Phone: 1(901) 387-732806-01-2025 Discharge summary Author Roddy Reeves [facility] Note Date/Time January 02, 2025 6:00a m [facility] Medical Records Department [address] [place] [address] Emergency Department Summary 01/02/25 MR#: [id number] Acct: [id number] Name: FRANKLIN ARCHULETA Rep #:[id number] : [...] was here recently and was sent home. [facility] Medical History Weakness Diarrhea Sepsis Acidosis, lactic [...] mg tablet (Xifaxan) 550 mg PO BID [facility] ea #60 tabs 09/02/24 11/28/24 [...] (Auto) 68.0 Lymph % (Auto) 12.2 L [place]wood % (Auto) 11.9 H Eos % (Auto) [...] Clarity Turbid Urine pH 6.0 Ur Specific Weston 1.015 Urine Protein 100 H Urine Glucose [...] insufficiency fracture again noted, unchanged. Reading Location: [facility] Brain CT 01/02/25 03:55 IMPRESSION: No intracranial hemorrhage, mass effect or calvarial fracture. Moderate volume loss, atrophy again noted. Mild left maxillary sinus disease appears mildly decreased from the prior study. Reading Location: [facility] Cervical Spine CT 01/02/25 03:55 IMPRESSION: No fracture or malalignment. Multilevel spondylosis/discogenic change greatest at C5-6 Reading Location: [facility] Discharge Plan Triage Chief Complaint: Weakness [...] NP-C [Primary Care Provider] - Print Language: Bruneian Disposition Disposition: Acute Care Hospital [facility] What to do if you have Problems For any increased pain, shortness of breath, bleeding, nausea or vomiting, chestpain, or any unexpected problems, contact your Primary Care Provider. Call [facility] ([phone]) or report to the closest Emergency Room. Call 911 if necessary. 01/02/25 0600 <Electronically signed by Roddy Reeves DO> Cosigner Signature (if applicable): CC: YG Elias ~ Signed [facility] Work Phone: 1(888) 207-992506-01-2025 Radiology Diagnostic study [facility]06-01-2025 Radiology Diagnostic study [facility]06-01-2025 Radiology Diagnostic study [facility] 12-30-2024 Radiology Diagnostic study [facility]05-25-2025 Radiology Diagnostic study [facility]05-14-2025 Radiology Diagnostic study [facility]04-20-2025 Radiology Diagnostic study [facility]04-17-2025 Telephone encounter Note* Telephone Encounter [...] scheduled to follow up with [facility] Surg Tech. JEANNINE asked that Dr. Mosley inform this pt that he can return to our transplant center again and be re-evaluated once he has addressed his prohibitive psychosocial concerns (lack of caregivers, unstable housing, unstable finances, unreliable transportation). Dr. Mosley agreed to do so. [facility] Work Phone: [phone] Miscellaneous Notes* Telephone Encounter - Marah Arauz [...] scheduled to follow up with [facility] Surg Tech. JEANNINE asked that Dr. Mosley inform this pt that he can return to our transplant center again and be re-evaluated once he has addressed his prohibitive psychosocial concerns (lack of caregivers, unstable housing, unstable finances, unreliable transportation). Dr. Mosley agreed to do so. documented in this encounterSt. [facility] Telephone encounter Note * Telephone Encounter - Jeremi Abreu RN - 11/18/2024 10:01 AM EDT Inpatient hepatology team spoke with Franklinkarma Archuleta to advise him that his case was discussedat liver transplant selection committee on 11/17/2024 and he was declined for liver transplant due to social issues that include unstable housing, lack of income, lack of caregivers and lack of transportation. . Jeremi Abreu RN, BSN Liver Radiological Engineer [facility] Work Phone: [phone]) 325-927504-17-2025 Miscellaneous Notes* Telephone Encounter - Jeremi Abreu [...] transportation. . Jeremi Abreu RN, BSN Liver Radiological Engineer documented in this encounterSt. Mary'[facility]04-17-2025 [facility]17-20[facility]-16-2025 [facility]-16-2025 [facility]-16-2025 [facility]25 [facility]04-15-2025 [facility]-15-2025 [facility] 11-15-2024 Note[facility]04-14-2025 [facility]04[facility]14-2025 [facility]04-14-2025 History of Present illness Narrative* Marah Arauz [...] 15, 2024 2:35 PM documented in this encounterSt. Mary'[facility]04-14-2025 Note[facility]04-14-2025 History of Present illness Narrative* Virgil Farley DDS - 11/15/2024 1:48 PM EDTSummary: Liver Transplant Dental Bedside Clearance See inpatient note for this encounter on 11/15/2024. Virgil Farley DDS documented in this encounterSt. Mary'S [facility] Center04-14-2025 NoteTri[facility]04-13-2025 Note[facility]04-12-2025 Note[facility]04-11-2025 History of Present illness Narrative* Lizett Guzman [facility] ED - 11/12/2024 4:34 PM EDT Pharmacist Pre-Transplant [...] mg capsule(s) rifAXIMin 550 mg tab(s) (XIFAXAN) kvqrcag-ifpwebahq-maenmut D3 500 mg-5 mcg (200 unit) 1 [...] Guzman, PharmD Transplant Pharmacy Clinical Specialist Pager: [phone] documented in this encounterSt. Mary'S [facility] Center04-11-2025 NoteTri[facility]04-11-2025 Note[facility]04-11-2025 History of Present illness Narrative* Jeremi Abreu RN - 11/12/2024 2:52 PM EDT The following information has been provided/discussed with the patient/family during Shared MedicalAppointment education class: Informed Consent for Organ Transplant Program Participation version February 20, 2023. SRTR information provided and questions answered. Informed patient to call extension course coordinator with any questions. [facility] information regarding multiple listings for organ transplantation Evaluation process including presentation to selection committee and listing criteria Surgical procedure, including post-operative management, hospitalization, immunosuppressive medications and their side effects (including the risk for hypertension, diabetes, kidney problems and cancers) and retirement follow up after transplant. Possibility of recurrent [...] was also addressed Patient was provided with [facility] information sheet regarding transplantation of HepatitisC [...] In Department: TRANSPLANT CENTER documented in this encounterSt. Mary'[facility] Center04-11-2025 NoteTri[facility]04-11-2025 History of Present illness Narrative* Marah Arauz [...] 12, 2024 1:16 PM documented in this encounterSt. Mary'S Medical Center04-11-2025 Miscellaneous Notes* Telephone Encounter - Jeremi Abreu RN - 11/12/2024 12:08 PM EDT INFORMED CONSENT Franklin Chapa [facility] Medical Record: [id number] Informed consent for Organ Transplant Program Participation [...] questions answered. Jeremi Abreu RN, BSN Liver Radiological Engineer documented in this encounterSt. Mary'S Medical Center04-11-2025 Telephone encounter Note * Telephone Encounter - Jeremi Abreu RN - 11/12/2024 12:08 PM EDT INFORMED CONSENT Franklin Chapa [facility] Medical Record: [id number] Informed consent for Organ Transplant Program Participation [...] questions answered. Jeremi Abreu RN, BSN Liver Radiological Engineer [facility] Work Phone: 1([phone]) 456-350404-11-2025 [facility]04-11-2025 NoteHNO ID: [id number] Author: KIRTI VELÁSQUEZ RN Service: Nursing Author Type: Registered Nurse Type: Nursing Progress Note Filed: 11/12/2024 00:58 Note Text: Other: PTTAC-no clot detected at 320-heparin gtt stopped-need futher orders-money counter notifiedTrihealth04-10-2025 Note[facility] 11-11-2024 NoteTri[facility]04-10-2025 NoteTri[facility]04-09-2025 Discharge summary Author Kathie Lemos [facility] Note Date/Time November 10, 2024 8:42 pm [facility] Medical Records Department [address] [place] [address] Discharge Summary 11/10/241936 MR#: [id number] Acct: [id number] Name: FRANKLIN ARCHULETA Rep #:[id number] : 1965 59 From: Kathie Lemos MD PCP: Care Physician,No Primary Status :ADM IN Location: [place] [address] Providers Date of Admission: 10/29/24 Date of Discharge: 11/10/24 Primary Care Physician: No Primary Care Phys Consultations 10/29/24 01:15 Consult: Urology Routine Consulting Provider: Foster Rascon Reason for Consult: Sepsis with UTI and Staghorn Calculus. EMERGENT Consult: No MD Notified: Yes Date Notified: 10/29/24 Time Notified: 08:07 Method of Notification: Verbal 10/29/24 01:47 Consult: Workers Compensation Claims Adjuster / Pulmonary Medicine Routine Consulting Provider: Intensivists/Pulmonary Med Reason for Consult: Sepsis, UTI, Diarrhea, Abdominal Pain and Back Pain. EMERGENT Consult: No Notified: Yes Date Notified: 10/29/24 Time Notified: 04:58 Method of Notification: Text 10/30/24 03:54 Consult: Gastroenterology Routine Consulting Provider: [facility] Reason for Consult: BOYER, elevated ammonia EMERGENT Consult: No MD Notified: Yes Date Notified: 10/30/24 Time Notified: 07:31 Method of Notification: Text 11/09/24 21:26 Consult: Gastroenterology Routine Consulting Provider: [facility] Reason for Consult: cirrhosis,ascites,splenic thrombosis, low plts, possible dec in heidy motili EMERGENT Consult: No MD Notified: Yes Date Notified: 11/10/24 Time Notified: 05:35 Method of Notification: Text Consult: Oncology/Hematology Routine Consulting Provider: [facility] Reason for Consult: [...] diabetes, staghorn colliculi, cirrhosis who presented to [facility] ED 10/29/2024 with sepsis and [...] heme-onc was in agreement. Reach out to [facility] and ultimately patient was accepted by the associate professor of pathology Dr. Neal. Patient with bed assignment 11/10, patient to be transferred to 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 Discharge Orders/Prescriptions Prescriptions: No Action lidocaine 5 [...] in before D/C Order can be placed): [facility] 11/10/241936<Electronically signed by Kathie Lemos MD>Kathie Lemos [...] DO; No Primary Care Physician ~ Signed [facility] Work Phone: [phone]) 503-171504-09-2025 Consult note Author Foster Rascon [facility] Note Date/Time November 10, 2024 8:59 am [facility] Medical Records Department [address] [place] [address] Consultation 11/10/24 0857 MR#: [id number] Acct: [id number] Name: FRANKLIN ARCHULETA Rep #:[id number] : 1965 59 From: Foster Rascon MD PCP: Care Physician,No Primary Status :ADM IN Location: [place] [id number] Consult Date of Consult: 11/10/24 59-year-old [...] applicable): CC: No Primary Care Physician~ Signed [facility] Work Phone: 1([phone]) 463-440804-08-2025 Progress note Author Kathie Lemos [facility] Note Date/Time November 09, 2024 9:26 pm [facility] Medical Records Department [address] [place] [address] Progress Note - Hospitalist 11/09/241 MR#: [id number] Acct: [id number] Name: FRANKLIN ARCHULETA Rep #:[id number] : 1965 59 From: Kathie Lemos MD PCP: Care Physician,No Primary Status :ADM IN Location: [place] [address] scan w/ ascites and [...] Cosigner Signature (if applicable): CC: ~ Signed [facility] Work Phone: 1(980) 142-267804-08-2025 Progress note Author Kathie Lemos [facility] Note Date/Time November 09, 2024 6:54 pm [facility] Medical Records Department [address] [place] [address] Progress Note - Hospitalist 11/09/24 1850 MR#: [id number] Acct: [id number] Name: FRANKLIN ARCHULETA Rep #:[id number] : 1965 59 From: Kathie Lemos MD PCP: Care Physician,No Primary Status :ADM IN Location: [place] [address] Reason for Visit Reason for Visit: Diagnoses [...] 79.1 H, Lymph % (Auto) 8.2 L, Haywood % (Auto) 8.1, Eos % (Auto) 3.0, [...] interval NG tube removal. Reading Location: [facility] Rhythm Strip Rhythm Strip: Sinus Rhythm Rate: [...] 42 Minutes Charges/Coding Visit Charges Inpatient E&M: 45004 Subs Hosp L2 11/09/24 1854 <Electronically signed by Kathie Lemos MD> Cosigner Signature (if applicable): CC: ~ Signed [facility] Work Phone: [phone]) 532-807804-08-2025 Radiology Diagnostic study [facility]04-08-2025 Radiology Diagnostic study [facility]04-07-2025 Progress note Author Kathie Lemos [facility] Note Date/Time November 08, 2024 6:26 pm [facility] Medical Records Department [address] [place] [address] Progress Note - Hospitalist 11/08/24 1441 MR#: [id number] Acct: [id number] Name: FRANKLIN ARCHULETA Rep #:[id number] : 1965 59 From: Kathie Lemos MD PCP: Care Physician,No Primary Status :ADM IN Location: [place] [address] Reason for Visit Reason for Visit: Diagnoses [...] 56 Minutes Charges/Coding Visit Charges Inpatient E&M: 04353 Subs Hosp L3 11/08/24 1503 <Electronically signed [...] Cosigner Signature (if applicable): cc: ~* Signed [facility] Work Phone: 1(712) 764-282804-06-2025 Progress note Author Hill Acuña [facility] Note Date/Time November 07, 2024 10:3 8am [facility] Medical Records Department [address] [place] [address] Progress Note - Hospitalist 11/07/24 0913 MR#: [id number] Acct: [id number] Name: FRANKLIN ARCHULETA Rep #:[id number] : 1965 59 From: Hill Acuña MD PCP: Care Physician,No Primary Status :ADM IN Location: [place] [address] Reason for Visit Reason for Visit: Diagnoses [...] 81.5 H, Lymph % (Auto) 6.9 L, Haywood % (Auto) 6.9, Eos % (Auto) 2.3, [...] Requested for PT OT eval and social work msw to assist with discharge planning ? 11/05/2024; plan is for patient to be discharged home when medically stable. Patient does not qualify for home health as he currently does not have a primarycare physician he has been given a referral to [facility] 1 Time spent in the patient's overall evaluation,decision-making process, review of diagnostic data, adjustment of management, discussion with other providers, nursing nursing and ancillary staff involved in patient's care documentation, 36 Minutes Charges/Coding Visit Charges Inpatient E&M: 81431 Subs Hosp L2 11/07/24 1038 <Electronically signed by Hill Acuña MD> Cosigner Signature (if applicable): CC: ~ Signed [facility] Work Phone: 1(214) 752-988104-05-2025 Progress note Author Hill Glasskarma [facility] Note Date/Time November 06, 2024 10:5 7am [facility] Medical Records Department [address] [place] [address] Progress Note - Hospitalist 11/06/24 0756 MR#: [id number] Acct: [id number] Name: FRANKLIN ARCHULETA Rep #:[id number] : 1965 59 From: Hill Acuña MD PCP: Care Physician,No Primary Status :ADM IN Location: [place] [address] Reason for Visit Reason for Visit: Diagnoses [...] Requested for PT OT eval and social work msw to assist with discharge planning ? 11/05/2024; plan is for patient to be discharged home when medically stable. Patient does not qualify for home health as he currently does not have a primarycare physician he has been given a referral to [facility] 1 Time spent in the patient's overall evaluation,decision-making process, review of diagnostic data, adjustment of management, discussion with other providers, nursing nursing and ancillary staff involved in patient's care documentation, 36 Minutes Charges/Coding Visit Charges Inpatient E&M: 77754 Subs Hosp L2 11/06/24 1057 <Electronically signed by Hill Acuña MD> Cosigner Signature (if applicable): CC: ~ Signed [facility] Work Phone: 1(114) 804-155504-04-2025 Progress note Author Hill Acuña [facility] Note Date/Time November 05, 2024 9:26 am [facility] Medical Records Department [address] [facility] [place] [address] Progress Note - Hospitalist 11/05/24 0924 MR#: [id number] Acct: [id number] Name: FRANKLIN ARCHULETA Rep #:[id number] : 1965 59 From: Hill Acuña MD PCP: Care Physician,No Primary Status :ADM IN Location: [place] [address] Reason for Visit Reason for Visit: Diagnoses [...] 81.0 H, Lymph % (Auto) 6.7 L, Haywood % (Auto) 7.1, Eos % (Auto) 2.3, [...] Requested for PT OT eval and social work msw to assist with discharge planning ? 11/05/2024; plan is for patient to be discharged home when medically stable. Patient does not qualify for home health as he currently does not have a primarycare physician he has been given a referral to [facility] Time spent in the patient's overall evaluation,decision-making process, review of diagnostic data, adjustment of management, discussion with other providers, nursing nursing and ancillary staff involved in patient's care documentation, 38 Minutes Charges/Coding Visit Charges Inpatient E&M: 55137 Subs Hosp L2 11/05/24 0926 <Electronically signed by Hill Acuña MD> Cosigner Signature (if applicable): CC: ~ Signed [facility] Work Phone: 1(593) 176-643804-03-2025 Progress note Author Hill Acuña [facility] Note Date/Time November 04, 2024 11:5 0am [facility] Medical Records Department [address] [place] [address] Progress Note - Hospitalist 11/04/24 1105 MR#: [id number] Acct: [id number] Name: FRANKLIN ARCHULETA Rep #:[id number] : 1965 59 From: Hill Acuña MD PCP: Care Physician,No Primary Status :ADM IN Location: [place] [address] Reason for Visit Reason for Visit: Diagnoses [...] H 16 139/93 H 98 Room Air 04/03/25 10:00 11/04/24 10:00 11/04/24 10:00 11/04/24 10:00 [...] 83.6 H, Lymph % (Auto) 4.9 L, Haywood % (Auto) 5.9, Eos % (Auto) 1.1, [...] Requested for PT OT eval and social work msw to assist with discharge planning Time spent in the patient's overall evaluation,decision-making process, review of diagnostic data, adjustment of management, discussion with other providers, nursing nursing and ancillary staff involved in patient's care documentation, 38 Minutes Charges/Coding Visit Charges Inpatient E&M: 48923 Subs Hosp L2 11/04/24 1150 <Electronically signed by Hill Acuña MD> Cosigner Signature (if applicable): CC: ~ Signed [facility] Work Phone: 1(386) 624-927404-03-[address] [facility] Note Date/Time November 04, 2024 6:43 am [facility] Medical Records Department [address] [place] [address] Progress Note - Hospitalist 11/04/24 0642 MR#: [id number] Acct: [id number] Name: FRANKLIN ARCHULETA Rep #:[id number] : 1965 59 From: Maria Guadalupe Shore MD PCP: Care Physician,No Primary Status :ADM IN Location: [place] [address] Hospitalist Note Patient with 15 beat asymptomatic VT. Electrolytes recently checked, mag normal range, K normal range. 11/04/2443 <Electronically signed by Maria Guadalupe Shore MD> Cosigner Signature (if applicable): CC: ~ Signed [facility] Work Phone: 1(356) 849-785104-03-[address] [facility] Note Date/Time November 03, 2024 10:3 8pm [facility] Medical Records Department [address] [place] [address] Progress Note - Hospitalist 11/03/242236 MR#: [id number] Acct: [id number] Name: FRANKLIN ARCHULETA Rep #:[id number] : 1965 59 From: Maria Guadalupe Shore MD PCP: Care Physician,No Primary Status :ADM IN Location: [place] [address] Hospitalist Note Patient with mildly tachycardia through the late afternoon and evening. Will administer 500 cc bolus and reassess. From review of medications not normally onBB therapy. 11/03/242237 <Electronically signed by Maria Guadalupe Shore MD> Cosigner Signature (if applicable): CC: ~ Signed [facility] Work Phone: 1([phone]) 957-806404-02-2025 Progress note Author Hill Acuña [facility] Note Date/Time November 03, 2024 10:2 7am [facility] Medical Records Department [address] [place] [address] Progress Note - Hospitalist 11/03/24 1025 MR#: [id number] Acct: [id number] Name: FRANKLIN ARCHULETA Rep #:[id number] : 1965 59 From: Hill Acuña MD PCP: Care Physician,No Primary Status :ADM IN Location: [place] [address] Reason for Visit Reason for Visit: Diagnoses [...] Requested for PT OT eval and social work msw to assist with discharge planning Time spent in the patient's overall evaluation,decision-making process, review of diagnostic data, adjustment of management, discussion with other providers, nursing nursing and ancillary staff involved in patient's care documentation, 38 Minutes Charges/Coding Visit Charges Inpatient E&M: 85332 Subs Hosp L2 11/03/24 1027 <Electronically signed by Hill Acuña MD> Cosigner Signature (if applicable): CC: ~ Signed [facility] Work Phone: 1(519) 530-375504-01-2025 Progress note Author Hill Acuña [facility] Note Date/Time November 02, 2024 10:0 5am [facility] Medical Records Department [address] [place] [address] Progress Note - Hospitalist 11/02/24 0804 MR#: [id number] Acct: [id number] Name: FRANKLIN ARCHULETA Rep #:[id number] : 1965 59 From: Hill Acuña MD PCP: Care Physician,No Primary Status :ADM IN Location: [place] [address] Reason for Visit Reason for Visit: Diagnoses [...] 50 Minutes Charges/Coding Visit Charges Inpatient E&M: 23149 Subs Hosp L3 11/02/24 1005 <Electronically signed by Hill Acuña MD> Cosigner Signature (if applicable): CC: ~ Signed [facility] Work Phone: 1(464) 436-613203-31-2025 Progress note Author Hill Acuña [facility] Note Date/Time November 01, 2024 11: 41am [facility] Medical Records Department [address] [place] [address] Progress Note - Hospitalist 11/01/24 1128 MR#: [id number] Acct: [id number] Name: FRANKLIN ARCHULEAT Rep #:[id number] : 1965 59 From: Hill Acuña MD PCP: Care Physician,No Primary Status :ADM IN Location: [place] [address] Reason for Visit Reason for Visit: Diagnoses [...] 50 Minutes Charges/Coding Visit Charges Inpatient E&M: 91734 Subs Hosp L3 11/01/24 1141 <Electronically signed by Hill Acuña MD> Cosigner Signature (if applicable): CC: ~ Signed [facility] Work Phone: 1(155) 240-958603-31-2025 Progress note Author Niranjan Li [facility] Note Date/Time November 01, 2024 8:4 4am [facility] Medical Records Department [address] [place] [address] Progress Note 11/01/24 0836 MR#: [id number] Acct: [id number] Name: FRANKLIN ARCHULETA Rep #:[id number] : 1965 59 From: Niranjan Li DO PCP: Care Physician,No Primary Status :ADM IN Location: [place] [address] Progress Note Patient has a little bit [...] doses of vancomycin. Visit Charges Inpatient E&M: 05071 [facility] Hosp L3 11/01/24 0805 <Electronically signed by Niranjan Li DO> Niranjan Li DO Cosigner Signature (if applicable): CC: ~ Signed [facility] Work Phone: 1([phone]) 272-489503-31-2025 Consult note Author Ale Renee [facility] Note Date/Time November 01, 2024 6:1 1am [facility] Medical Records Department [address] [place] [address] Pharmacokinetic/Renal -Consult 11/01/24 0604 MR#: [id number] Acct: [id number] Name: FRANKLIN ARCHULETA Rep #:[id number] : 1965 59 From: Ale Renee PCP: Care Physician,No Primary Status :ADM IN Y Location: [place] [address] Consult Antibiotic Management Pharmacy has been consulted [...] Date Hill Caro DO CC: ~ Signed [facility] Work Phone: 1([phone]) 636-897003-30-2025 Progress note Author Buster Fuchs [facility] Note Date/Time October 31, 2024 9:5 5am [facility] Medical Records Department [address] [place] [address] Progress Note - Hospitalist 10/31/24 0952 MR#: [id number] Acct: [id number] Name: FRANKLIN ARCHULETA Rep #:[id number] : [...] (Auto) 80.3 H, Lymph %(Auto) 5.9 L, Haywood % (Auto) 7.9, Eos % (Auto) 1.5, [...] they did add IV Flagyl ? Appreciate senior customer service representative assistance 2. Acute metabolic cephalopathy with nonalcoholic [...] DVT: SCDs Charges/Coding Visit Charges Inpatient E&M: 86417 Subs Hosp L2 10/31/24 0955 <Electronically signed by Buster Fuchs MD> Cosigner Signature (if applicable): CC: ~ Signed [facility] Work Phone: 1([phone]) 261-458803-30-2025 Consult note Author Foster Rascon [facility] Note Date/Time October 31, 2024 7:3 1am [facility] Medical Records Department [address] [place] [address] Consultation 10/31/24 0730 MR#: [id number] Acct: [id number] Name: FRANKLIN ARCHULETA Rep #:[id number] : [...] applicable): CC: No Primary Care Physician~ Signed [facility] Work Phone: [phone]) 655-192803-29-2025 Consult note Author Niranjan Li [facility] Hospital Note Date/Time October 30, 2024 9:3 4pm [facility] Medical Records Department [address] [place] [address] Consultation - GI 10/30/242047 MR#: [id number] Acct: [id number] Name: FRANKLIN ARCHULETA Rep #:[id number] : [...] of yellow-colored fluid removed. He presented backto [facility] ER complaining of abdominal pain, [...] He is also on Zosyn for urosepsis. [facility] Medical History Chronic hypotension Obesity [...] 85.6 H, Lymph % (Auto) 4.3 L, Haywood % (Auto) 7.3, Eos % (Auto) 0.5, [...] NG tube in satisfactory position. Reading Location: [facility] Assessment & Plan Assessment/Plan (1) [...] this admission. Charges/Coding Visit Charges Inpatient E&M: 47092 Init Hosp L3 10/30/242133 <Electronically signed by Niranjan Li DO> Cosigner Signature (if applicable): CC: No Primary Care Physician~ Signed [facility] Work Phone: 1(920) 850-200903-29-2025 Consult note Author Kourtney Reece [facility] Note Date/Time October 30, 2024 4:1 2pm [facility] Medical Records Department [address] [place] [address] Pharmacokinetic/Renal -Consult 10/30/24 1552 MR#: [id number] Acct: [id number] Name: FRANKLIN ARCHULETA Rep #:[id number] : [...] Date Buster Fuchs MD CC: ~ Signed [facility] Work Phone: [phone]) 344-462703-29-2025 Progress [facility] Date/Time October 30, 2024 10: 45am [facility] Medical Records Department [address] [facility] [place] [address] Progress Note - Workers Compensation Claims Adjuster 10/30/24 1037 MR#: [id number] Acct: [id number] Name: FRANKLIN ARCHULETA Rep #:[id number] : [...] Patch TOPICAL Not Given DAILY [facility] Protocol Midodrine 10 mg 10/29/24 [...] Vancomycin Trough/Random Due MC 10/30/24 16:30 DAILY [facility] Zinc Sulfate 50 mg 10/29/24 10:00 10/30/24 [...] 85.5 H, Lymph % (Auto) 4.6 L, Haywood % (Auto) 7.4, Eos % (Auto) 1.2, [...] 85.6 H, Lymph % (Auto) 4.3 L, Haywood % (Auto) 7.3, Eos % (Auto) 0.5, [...] NG tube in satisfactory position. Reading [facility] Assessment and Plan [...] Cosigner Signature (if applicable): CC: ~ Signed [facility] Work Phone: 1(348) 929-897203-29-2025 Consult note Author Foster Rascon [facility] Note Date/Time October 30, 2024 9:5 8am [facility] Medical Records Department [address] [place] [address] Consultation - Urology 10/30/24 0956 MR#: [id number] Acct: [id number] Name: FRANKLIN ARCHULETA Rep #:[id number] : [...] nephrostomy tube we will continue to follow. [facility] Medical History Chronic hypotension Obesity [...] 85.5 H, Lymph % (Auto) 4.6 L, Haywood % (Auto) 7.4, Eos % (Auto) 1.2, [...] 85.6 H, Lymph % (Auto) 4.3 L, Haywood % (Auto) 7.3, Eos % (Auto) 0.5, [...] NG tube in satisfactory position. Reading Location[facility] 10/30/2458 <Electronically signed by Foster Rascon MD> Cosigner Signature (if applicable): CC: No Primary Care Physician~ Signed [facility] Work Phone: 1([phone]) 140-592303-29-2025 Progress note Author Buster Fuchs [facility] Note Date/Time October 30, 2024 8:2 9am [facility] Medical Records Department [address] [place] [address] Progress Note - Hospitalist 10/30/24819 MR#: [id number] Acct: [id number] Name: FRANKLIN ARCHULETA Rep #:[id number] : [...] 85.5 H, Lymph % (Auto) 4.6 L, Haywood % (Auto) 7.4, Eos % (Auto) 1.2, [...] 85.6 H, Lymph % (Auto) 4.3 L, Haywood % (Auto) 7.3, Eos % (Auto) 0.5, [...] 3. Left-sided ureteral stent noted. Reading Location: [facility] Rhythm Strip Rhythm Strip: Sinus Rhythm [...] antibiotics ? Cultures are pending ? Appreciate senior customer service representative assistance 2. Acute metabolic cephalopathy with nonalcoholic [...] DVT: SCDs Charges/Coding Visit Charges Inpatient E&M: 86298 Subs Hosp L2 10/30/24 0829 <Electronically signed by Buster Fuchs MD> Cosigner Signature (if applicable): CC: ~ Signed [facility] Work Phone: 1(336) [phone] Radiology Diagnostic study [facility]03-28-2025 Consult note Author Foster Rascon [facility] Note Date/Time October 29, 2024 10: 32am [facility] Medical Records Department [facility] [place] [address] Consultation - Urology 10/29/24 0808 MR#: [id number] Acct: [id number] Name: FRANKLIN ARCHULETA Rep #:[id number] : [...] emergency intervention is necessary from my standpoint [facility] Medical History Chronic hypotension Obesity [...] 83.0 H, Lymph % (Auto) 5.6 L, Haywood % (Auto) 8.4, Eos % (Auto) 1.4, [...] vertebral body compression fracture deformities. Reading Location: [id number] 10/29/24 1032 <Electronically signed by Foster Rascon MD> Cosigner Signature (if applicable): CC: No Primary Care Physician~ Signed [facility] Work Phone: [phone]) [phone] Consult note Author Bola Meraz [facility] Note Date/Time October 29, 2024 10: 24am [facility] Medical Records Department [address] [facility] [place] [address] Consultation - Workers Compensation Claims Adjuster 10/29/24 0744 MR#: [id number] Acct: [id number] Name: FRANKLIN ARCHULETA Rep #:[id number] : [...] coverage initiated. This note was generated with [employer] dictation software. It may contain incorrectwords, spelling, [...] stable, without the need for vasopressor support. [facility] Medical History Chronic hypotension Obesity [...] 83.0 H, Lymph % (Auto) 5.6 L, Haywood % (Auto) 8.4, Eos % (Auto) 1.4, [...] body compression fracture deformities. Reading Location: [facility] Charges/Coding Visit Charges Inpatient E&M: 83980 Init Hosp L3 10/29/24 1024 <Electronically signed by Bola Meraz DO> Cosigner Signature (if applicable): CC: No Primary Care Physician~ Signed [facility] Work Phone: 1([phone]) 201-382003-28-2025 Radiology Diagnostic study [facility]03-28-2025 History and physical note Author Hill Wright [facility] Note Date/Time October 29, 2024 6:4 7am [facility] Medical Records Department [address] [place] [address] H&P Exam - Hospitalist 10/29/24 0033 MR#: [id number] Acct: [id number] Name: FRANKLIN ARCHULETA Rep #:[id number] : [...] toSeptember 02, 2024 with patient diagnosed with nkbou-rg-kgcptmw hypotension in thesetting of acute hepatic encephalopathy [...] fluid removed who once again presents to [facility] ER complaining of abdominal pain, [...] thatis expected to extend beyond 2 midnights. [facility] Medical History Chronic hypotension Obesity [...] 83.0 H, Lymph % (Auto) 5.6 L, Haywood % (Auto) 8.4, Eos % (Auto) 1.4, [...] body compression fracture deformities. Reading Location: [facility] Assessment & Plan Assessment/Plan (1) Sepsis: QUALIFIERS: [...] and sensitivity data. Give acetaminophen prn for konf-xc-esyiyfvi (level 1-5/10) pain or fever. Give morphine [...] appreciated in advance. Finally, we will consult senior customer service representative to see this patient on-rounds in the AM for further recommendations with help appreciated in advance. 2. Admission here from August 29, 2024 to September 02, 2024 with patient diagnosed with sluym-qp-itqymey hypotension in the setting of acute hepatic [...] responsive hypotension Charges/Coding Visit Charges Inpatient E&M: 73021 Init Hosp L3 10/29/24 0647 <Electronically signed by Hill Caro DO> Cosigner Signature (if applicable): CC: Dr. Hill Caro, DO; No Primary Care Physician~ Signed [facility] Work Phone: [phone] Consult note Author Ale Renee [facility] Note Date/Time October 29, 2024 3:3 4am [facility] Medical Records Department [address] [place] [address] Pharmacokinetic/Renal -Consult 10/29/24316 MR#: [id number] Acct: [id number] Name: FRANKLIN ARCHULETA Rep #:[id number] : [...] Date Hill Caro DO CC: ~ Signed [facility] Work Phone: [phone] Discharge summary Author Alber Dunn [facility] Note Date/Time October 29, 2024 1:0 4am [facility] Medical Records Department [address] [place] [address] Emergency Department Summary 10/28/24 MR#: [id number] Acct: [id number] Name: FRANKLIN ARCHULETA Rep #:[id number] : [...] Prior similar symptoms: Yes [facility] Medical History Chronic hypotension Obesity [...] There is a pressure was 81/50 5 lirsom09/60 when I am in the room it [...] 83.0 H Lymph % (Auto) 5.6 L Haywood % (Auto) 8.4 Eos % (Auto) 1.4 [...] Clarity Cloudy Urine pH 6.5 Ur Specific Weston 1.015 Urine Protein 500 H Urine Glucose [...] body compression fracture deformities. Reading Location: [facility] Rhythm Strip Rhythm Strip: Sinus Rhythm Rate: [...] 30-74 minutes, Including time spent:,Discussing w/Patient &/or Family/Application Counselor, Discussing w/Consultants, ArrangingAdmission or Transfer, Performing Direct Patient Care at Bedside and - (38 min) Discharge Plan Dx/Rx/DC Orders Clinical Impression: Chronic back pain, Chronic abdominal pain, Leukocytosis, Acute UTI, Acute hypotension, Acidosis, lactic, Sepsis Disposition Disposition: [facility] What to do if you have Problems For any increased pain, shortness of breath, bleeding, nausea or vomiting, chestpain, or any unexpected problems, contact your Primary Care Provider. Call [facility] ([phone]) or report to the closest Emergency Room. Call 911 if necessary. 10/29/24 0104 <Electronically signed by Alber Dunn MD> Cosigner Signature (if applicable): CC: No Primary Care Physician ~ Signed [facility] Work Phone: [phone]) 439-819103-28-2025 Evaluation note* Diagnosis Onset Date Resolution Status Admit Date Clostridium difficile colitis acute October 29, 2024 12:43am History of uric acid staghor n calculus acute October 29, 2024 12:43am Hyponatremia acute October 29, 2024 12:43am Leukocytosis acute October 29, 2024 12:43am Obesity (BMI 30.0-34.9) acute [facility] 2024 12:43am Chronic abdominal pain chronic [facility] 2024 12:43am Chronic back pain [...] 2024 7:00am Lactic acidosis acute January 7:00am [facility] Work Phone: [phone] Evaluation note* Diagnosis Onset Date Resolution Status Admit Date Clostridium difficile colitis acute October 29, 2024 12:43am History of uric acid staghor n calculus acute October 29, 2024 12:43am Hyponatremia acute October 29, 2024 12:43am Leukocytosis acute October 29, 2024 12:43am Obesity (BMI 30.0-34.9) acute [facility] 2024 12:43am Chronic abdominal pain chronic [facility] 2024 12:43am Chronic back pain [...] January 7:00am Umbilical hernia acute January 7:00am [facility] Work Phone: [phone] 543-166003-28-2025 Evaluation note* Diagnosis Onset Date Resolution Status Admit Date Clostridium difficile colitis acute October 29, 2024 12:43am History of uric acid staghor n calculus acute October 29, 2024 12:43am Hyponatremia acute October 29, 2024 12:43am Leukocytosis acute October 29, 2024 12:43am Obesity (BMI 30.0-34.9) acute [facility] 2024 12:43am Chronic abdominal pain chronic [facility] 2024 12:43am Chronic back pain chronic [...] January 7:00am Umbilical hernia inactive January 7:00am [facility] Work Phone: [phone] Evaluation note* Diagnosis Onset Date Resolution Status [...] Chronic anemia chronic February 16, 2025 6:26pm [facility] Work Phone: [phone]) [phone] Evaluation note* Diagnosis Onset Date Resolution Status Admit Date Clostridium difficile colitis acute October 29, 2024 12:43am History of uric acid staghor n calculus acute October 29, 2024 12:43am Hyponatremia acute October 29, 2024 12:43am Leukocytosis acute October 29, 2024 12:43am Obesity (BMI 30.0-34.9) acute [facility] 2024 12:43am Chronic abdominal pain chronic [facility] 2024 12:43am Chronic back pain [...] acic spine, non-traumatic acute January 09 2:16pm Leukocytosis acute January 09 2:16pm Metabolic [...] Chronic anemia chronic February 16, 2025 6:26pm [facility] Work Phone: [phone]) [phone] Evaluation note* Diagnosis Onset Date Resolution Status Admit Date Clostridium difficile colitis acute October 29, 2024 12:43am History of uric acid staghor n calculus acute October 29, 2024 12:43am Hyponatremia acute October 29, 2024 12:43am Leukocytosis acute October 29, 2024 12:43am Obesity (BMI 30.0-34.9) acute [facility] 2024 12:43am Chronic abdominal pain chronic [facility] 2024 12:43am Chronic back pain [...] fracture of thoracic spine, non-traumatic acute [place] 2024 2:16pm Leukocytosis acute January 09 2:16pm [...] Hepatic cirrhosis acute March 10, 2025 1:52pm [facility] Work Phone: [phone] Discharge summary [facility] Medical Records Department [address] [place] [address] Emergency Department Summary 10/28/24 MR#: [id number] Acct: [id number] Name: FRANKLIN ARCHULETA Rep #:[id number] : [...] similar symptoms: Yes Recent Illness/Hospitalization: No [facility] Medical History Chronic hypotension Obesity [...] There is a pressure was 81/50 5 idlife46/60 when I am in the room it [...] sepsis. Currently he is stable at12:10 AM. [facility] blood pressure is 110/67. Spoke to the [...] 83.0 H Lymph % (Auto) 5.6 L Haywood % (Auto) 8.4 Eos % (Auto) 1.4 [...] Clarity Cloudy Urine pH 6.5 Ur Specific Weston 1.015 Urine Protein 500 H Urine Glucose [...] body compression fracture deformities. Reading Location: [facility] Rhythm Strip Rhythm Strip: Sinus Rhythm Rate: [...] 30-74 minutes, Including time spent:,Discussing w/Patient &/or Family/Application Counselor, Discussing w/Consultants, ArrangingAdmission or Transfer, Performing Direct Patient Care at Bedside and - (38 min) Discharge Plan Dx/Rx/DC Orders Clinical Impression: Chronic back pain, Chronic abdominal pain, Leukocytosis, Acute UTI, Acute hypotension, Acidosis, lactic, Sepsis Disposition Disposition: [facility] What to do if you have Problems For any increased pain, shortness of breath, bleeding, nausea or vomiting, chestpain, or any unexpected problems, contact your Primary Care Provider. Call [facility] ([phone]) or report tothe closest Emergency Room. Call 911 if necessary. 10/29/24 0104 Cosigner Signature (if applicable): CC: No Primary Care Physician ~ Signed [facility]03-27-2025 Radiology Diagnostic study note [facility] Imaging Services [address] [place] [address] Abdomen/Pelvis W IV Cont ONLY MR#: [id number] Acct: [id number] Name: GEREMIASFRANKLIN CARMELA Rep #: [id number] : 1965 M 59 From: Cassandra Starkey MD PCP: Care Physician,No Primary Status: REG ER Study:Abdomen/Pelvis W IV Cont ONLY Date of E xam: 10/28/24 Exam# [id number] Ordering Dr: Tee Dunn MD PROCEDURE: ABDOMEN/PELVIS [...] vertebral body compression fracture deformities. Reading Location: [id number] CC: Dr. Alber Dunn MD; No Primary Care Physician ~ Breeder Service Technician: Signed [facility]03-27-2025 Discharge summary Author Alber Dunn [facility] Note Date/Time October 29, 2024 1:0 4am [facility] Medical Records Department [address] [place] [address] Emergency Department Summary 10/28/24 MR#: [id number] Acct: [id number] Name: FRANKLIN ARCHULETA Rep #:[id number] : [...] Prior similar symptoms: Yes Recent Illness/Hospitalization: No [facility] Medical History Chronic hypotension Obesity (BMI 30-39.9) [...] There is a pressure was 81/50 5 axdikk08/60 when I am in the room it [...] 83.0 H Lymph % (Auto) 5.6 L Haywood % (Auto) 8.4 Eos % (Auto) 1.4 [...] Clarity Cloudy Urine pH 6.5 Ur Specific Weston 1.015 Urine Protein 500 H Urine Glucose [...] body compression fracture deformities. Reading Location: [facility] Rhythm Strip Rhythm Strip: Sinus Rhythm Rate: [...] 30-74 minutes, Including time spent:,Discussing w/Patient &/or Family/Application Counselor, Discussing w/Consultants, ArrangingAdmission or Transfer, Performing Direct Patient Care at Bedside and - (38 min) Discharge Plan Dx/Rx/DC Orders Clinical Impression: Chronic back pain, Chronic abdominal pain, Leukocytosis, Acute UTI, Acute hypotension, Acidosis, lactic, Sepsis Disposition Disposition: [facility] What to do if you have Problems For any increased pain, shortness of breath, bleeding, nausea or vomiting, chestpain, or any unexpected problems, contact your Primary Care Provider. Call [facility] ([phone]) or report to the closest Emergency Room. Call 911 if necessary. 10/29/24 0104 <Electronically signed by Alber Dunn MD> Cosigner Signature (if applicable): CC: No Primary Care Physician ~ Signed [facility] Work Phone: 1([phone]) [phone] Procedure note* Joey Huang DO - 10/04/2024 5:17 PM ESTAssociated Order(s): Paracentesis Post-Procedure Diagnose(s): Other ascites Paracentesis Date/Time: 10/04/2024 5:17 PM Performed by: Joey Huang DO Authorized by: Joey Huang DO Consent: Consent obtained: Written Consent given by: Patient Risks, benefits, and alternatives were discussed: yes Risks discussed: Bleeding, bowel perforation and infection Alternatives discussed: No treatment Lockhart protocol: Procedure explained and questions answered to [...] Post-procedure details: Procedure completion: Tolerated [facility] Work Phone: 1(250) [phone] Procedure note* Joey Huang DO - 10/04/2024 5:17 PM ESTAssociated Order(s): Paracentesis Post-Procedure Diagnose(s): Other ascites Paracentesis Date/Time: 10/04/2024 5:17 PM Performed by: Joey Huang DO Authorized by: Joey Huang DO Consent: Consent obtained: Written Consent given by: Patient Risks, benefits, and alternatives were discussed: yes Risks discussed: Bleeding, bowel perforation and infection Alternatives discussed: No treatment Lockhart protocol: Procedure explained and questions answered to [...] details: Procedure completion: Tolerated [facility] Work Phone: 1([phone]) 191-201003-03-2025 Consult note* Joey Huang, DO - 10/04/2024 [...] & Plan Joey Huang DO [facility] Work Phone: 1([phone]) 543-300503-03-2025 Consult note* Joey Huang DO - 10/04/2024 [...] Plan Joey Huang DO documented in this [facility] Work Phone: [phone] Physician Emergency department Note* Sriram Oleary PA-C [...] Abnormality Status --------- ------ Urinalysis with Reflex C...[[id number]] Extra Urine Garvey Tube[[id number]] Please view results for these tests on the individual orders. URINALYSIS WITH REFLEX CULTURE AND MICROSCOPIC EXTRA URINE GARVEY TUBE PH, BODY FLUID LACTATE DEHYDROGENASE, BODY FLUID Narrative: The following orders were created for panel order Lactate Dehydrogenase, Body Fluid. Procedure Abnormality Status --------- ------ Lactate Dehydrogenase, B...[[id number]] In process Please view results for these tests on the individual orders. GLUCOSE, BODY FLUID Narrative: The following orders were created for panel order Glucose, Body Fluid. Procedure Abnormality Status --------- ------ Glucose, Body Fluid[[id number]] In process Please view results for these tests on the individual orders. PROTEIN, TOTAL, BODY FLUID Narrative: The following orders were created for panel order Protein, Total, Body Fluid. Procedure Abnormality Status --------- ------ Protein, Total, Body Fluid[[id number]] In process Please view results for these tests on the individual orders. BODY FLUID CELL COUNT WITH DIFFERENTIAL Narrative: The following orders were created for panel order Body Fluid Cell Count With Differential. Procedure Abnormality Status --------- ------ Body Fluid Cell Count[[id number]] In process Body Fluid Differential[[id number]] In process Please view results for these tests on the individual orders. ALBUMIN, BODY FLUID Narrative: The following orders were created for panel order Albumin, Body Fluid. Procedure Abnormality Status --------- ------ Albumin, Body Fluid[[id number]] In process Please view results for these [...] Yohana Huang 10/04/2024 2:28 PM Dictation workstation: [id number] Procedures Medical Decision Making Patient is a [...] (Multi) Sriram Oleary PA-C 10/04/241736 [facility] Work Phone: 1(765) 841-111103-03-2025 Emergency department Note* Sriram Oleary PA-C - [...] Abnormality Status --------- ------ Urinalysis with Reflex C...[[id number]] Extra Urine Garvey Tube[[id number]] Please view results for these tests on the individual orders. URINALYSIS WITH REFLEX CULTURE AND MICROSCOPIC EXTRA URINE GARVEY TUBE PH, BODY FLUID LACTATE DEHYDROGENASE, BODY FLUID Narrative: The following orders were created for panel order Lactate Dehydrogenase, Body Fluid. Procedure Abnormality Status --------- ------ Lactate Dehydrogenase, B...[[id number]] In process Please view results for these tests on the individual orders. GLUCOSE, BODY FLUID Narrative: The following orders were created for panel order Glucose, Body Fluid. Procedure Abnormality Status --------- ------ Glucose, Body Fluid[[id number]] In process Please view results for these tests on the individual orders. PROTEIN, TOTAL, BODY FLUID Narrative: The following orders were created for panel order Protein, Total, Body Fluid. Procedure Abnormality Status --------- ------ Protein, Total, Body Fluid[[id number]] In process Please view results for these tests on the individual orders. BODY FLUID CELL COUNT WITH DIFFERENTIAL Narrative: The following orders were created for panel order Body Fluid Cell Count With Differential. Procedure Abnormality Status --------- ------ Body Fluid Cell Count[[id number]] In process Body Fluid Differential[[id number]] In process Please view results for these tests on the individual orders. ALBUMIN, BODY FLUID Narrative: The following orders were created for panel order Albumin, Body Fluid. Procedure Abnormality Status --------- ------ Albumin, Body Fluid[[id number]] In process Please view results for these [...] Yohana Huang 10/04/2024 2:28 PM Dictation workstation: [id number] Procedures Medical Decision Making Patient is a [...] Oleary PA-C 10/04/24 1737 documented in this [facility] Work Phone: 1(412) 636-418102-26-2025 Evaluation note* Diagnosis Onset Date Resolution Status Admit Date Abdominal ascites acute Februar y 2024 9:35am Clostridium difficile colitis acute October 29, 2024 12:43am History of uric acid staghor n calculus acute October 29, 2024 12:43am Hyponatremia acute October 29, 2024 12:43am Leukocytosis acute October 29, 2024 12:43am Obesity (BMI 30.0-34.9) acute [facility] 2024 12:43am Chronic abdominal pain chronic [facility] 2024 12:43am Chronic back pain chronic [...] 2 :16pm Umbilical hernia acute January 2:16pm [facility] Work Phone: 1([phone]) 460-773302-26-2025 Procedure note [facility] Medical Records Department [address] [place] [address] Operative Report 09/29/24 1048 MR#: [id number] Acct: [id number] Name: FRANKLIN ARCHULETA Rep #:[id number] : 1965 59 From: Jasmine gusman [employer] SUPERINTENDENT 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 LOADMASTER SUPERINTENDENT-C PCP: Care Physician,No Primary Status :REG CLI Location: US Problems Associated Problem List Diagnoses (1) Abdominal ascites: Multi Select Codes Radiology Radiology US Procedures: 99429 Paracentesis Operative Report (Standard) Operative Information Date of Procedure: 09/29/24 Pre-Operative Diagnosis: Abdominal ascites Post-Operative Diagnosis: Abdominal ascites Surgery/Procedure Performed: Ultrasound-guided paracentesis public health director: No Type of Anesthesia: Local Procedure Start Time: 09:55 Procedure Stop Time: 10:17 Select all DRAINS/GRAFTS/IMPLANTS that apply: None Estimated Blood Loss: 0 Specimen collected: No Description of surgery: PROCEDURE: Ultrasound guided paracentesis ORDERING PROVIDER: Diane Guillen NP INDICATION: Male, 59 years old. Abdominal ascites. PROVIDER: Jasmine Morocho METAL CABINET FINISHER TECHNIQUE: The risks, benefits, and alternatives to [...] the peritoneal cavity was accessed with a 5-Macedonian paracentesis needle/catheter system. The trocar was removed. [...] 09/29/24 1053 Cosigner Signature (if applicable): CC: AIRCRAFT LOADMASTER SUPERINTENDENT-C Jasmine Morocho; No Primary Care Physician; DIANE GUILLEN~ Signed [facility]02-02-2025 Evaluation note* Diagnosis Onset Date Resolution [...] 12:43am Chronic abdominal pain chronic Ma [facility] 2024 12:43am Chronic back pain chronic [...] 6:06am Fall acute January 02, 2025 6:06am [facility] Work Phone: 1(837) 257-452002-02-2025 Evaluation note* Diagnosis Onset Date Resolution Status [...] spine, non-traumatic acute January 09, 025 2:16pm Sepsis acute January 09, 2025 2:16pm [facility] Work Phone: 1(266) 629-160301-27-2025 Evaluation note* Diagnosis Onset Date Resolution Status [...] 1:46am Abdominal ascites acute y 2024 9:35am [facility] Work Phone: 1(762) 504-110901-27-2025 Evaluation note* Diagnosis Onset Date Resolution Status [...] inactive ua2024 1:46am Chronic hypotension inactive Febru 2024 1:46am Hepatic encephalopathy inactive Fe 2024 1:46am Hyperbilirubinemia inactive 2024 1:46am Hypotension inactive September 05, 2024 1:46am 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) inactive September 05, 1:46am Obesity (BMI 30-39.9) inactive Sep ru2024 1:46am ABBY on CPAP inactive September 05, 2024 1:46am Cirrhosis of liver deleted Febr2024 1:46am Abdominal ascites acute uar y 2024 [...] 12:43am Chronic abdominal pain chronic Ma [facility] 2024 12:43am Chronic back pain chronic October 032024 12:43am [facility] Work Phone: 1(317) 413-766001-27-2025 Evaluation note* Diagnosis Onset Date Resolution Status Admit Date ISABEL (acute kidney injury) inactive August 29, 2024 10:09pm Hepatic encephalopathy inactive Ja nuary 2024 10:09pm Hypotension inactive August 29, 2024 10:09pm Ambulatory dysfunction acute 2024 1:46am Generalized weakness acute uary 2024 1:46am Staghorn calculus acute r 2024 1:46am Acute cystitis with hematuria resolv ed September 05, 2024 1:46am Impaired renal function resolved F ebruary 2024 1:46am Lactic acidosis resolved September 05, 2024 1:46am Leukocytosis resolved September 1:46am Metabolic encephalopathy resolved September 05, 2024 1:46am ISABEL (acute kidney injury) inactive September 05, 2024 1:46am Chronic back pain inactive 5 1:46am Chronic hypotension inactive Febru ace 2024 [...] 12:43am Chronic abdominal pain chronic Ma [facility] 2024 12:43am Chronic back pain chronic October 032024 12:43am [facility] Work Phone: 1(176) 584-503801-27-2025 Evaluation note* Diagnosis Onset Date Resolution Status [...] 4:28am Staghorn calculus acute November 032024 4:28am [facility] Work Phone: 1(146) 715-253401-27-2025 Evaluation note* Diagnosis Onset Date Resolution Status Admit Date ISABEL (acute kidney injury) inactive August 29, 2024 10:09pm Hepatic encephalopathy inactive Ja nuary 2024 10:09pm Hypotension inactive August 29, 2024 10:09pm Ambulatory dysfunction acute 2024 1:46am Generalized weakness acute Febr uary 2024 1:46am Staghorn calculus acute r 2024 1:46am Acute cystitis with hematuria resolv [...] infection) resolv ed November 28, 2024 4:51pm [facility] Work Phone: Discharge summary Author Herberth Carlson [facility] Note Date/Time November 21, 2024 4:1 6am [facility] Medical Records Department [address] [place] [address] Emergency Department Summary 11/21/24 MR#: [id number] Acct: [id number] Name: FRANKLIN ARCHULETA Rep #:[id number] : [...] discontinue his lactulose. He was recently admitted [facility] for cirrhosis and other issues, he [...] toilet after multiple attempts over couple hours. [facility] Medical History Diarrhea Sepsis Acidosis, lactic Acute [...] (Auto) 68.7 Lymph % (Auto) 13.9 L Haywood % (Auto) 9.2 Eos % (Auto) 7.2 [...] Sl Cldy Urine pH 6.0 Ur Specific Weston 1.015 Urine Protein 500 H Urine Glucose [...] process. Follow-up to resolution recommended. Reading Location: [facility] Management Discussion w/another healthcare provider: Hospitalist Discharge [...] Primary [Primary Care Provider] - Print Language: Bruneian Disposition Disposition: Acute Care Hospital [facility] What to do if you have Problems For any increased pain, shortness of breath, bleeding, nausea or vomiting, chestpain, or any unexpected problems, contact your Primary Care Provider. Call [facility] ([phone]) or report to the closest Emergency Room. Call 911 if necessary. 11/21/24 0416 <Electronically signed by Herberth Carlson MD> Cosigner Signature (if applicable): CC: No Primary Care Physician ~ Signed [facility] Work Phone: Discharge summary Author Mina Blood [facility] Note Date/Time December 30, 2024 5:19a m [facility] Medical Records Department [address] [place] [address] Emergency Department Summary 12/30/24 MR#: [id number] Acct: [id number] Name: FRANKLIN ARCHULETA Rep #:[id number] : 1965 59 From: Mina Blood DO PCP: Josy Elias AIRCRAFT LOADMASTER SUPERINTENDENT-C Status:REG E R Location: ED HPI History [...] recent trauma prior to the pain beginning. [facility] Medical History Weakness Diarrhea Sepsis Acidosis, lactic [...] mg tablet (Xifaxan) 550 mg PO BID [facility] ea #60 tabs 09/02/24 11/28/24 [...] (Auto) 69.7 Lymph % (Auto) 14.0 L Haywood % (Auto) 9.1 Eos % (Auto) 6.2 [...] Clarity Cloudy Urine pH 6.5 Ur Specific Weston 1.010 Urine Protein 100 H Urine Glucose [...] No evidence of acute disease. Reading Location: [facility] Chest x-ray as interpreted by the [...] you have any further concerns Print Language: Bruneian Disposition Disposition: Home, Self Care What to do if you have Problems For any increased pain, shortness of breath, bleeding, nausea or vomiting, chestpain, or any unexpected problems, contact your Primary Care Provider. Call [facility] ([phone]) or report to the closest Emergency Room. Call 911 if necessary. 12/30/24 0519 <Electronically signed by Mina Blood DO> Cosigner Signature (if applicable): CC: YG Elias ~ Signed [facility] Work Phone: Discharge summary Author Roddy Reeves [facility] Note Date/Time January 02, 2025 6:00a m [facility] Medical Records Department [address] [place] [address] Emergency Department Summary 01/02/25 MR#: [id number] Acct: [id number] Name: FRANKLIN ARCHULETA Rep #:[id number] : 1965 59 From: Roddy Reeves DO PCP: Josy Elias AIRCRAFT LOADMASTER SUPERINTENDENT-C Status:REG E R Location: ED HPI History [...] was here recently and was sent home. [facility] Medical History Weakness Diarrhea Sepsis Acidosis, lactic [...] (Auto) 68.0 Lymph % (Auto) 12.2 L Haywood % (Auto) 11.9 H Eos % (Auto) [...] Clarity Turbid Urine pH 6.0 Ur Specific Weston 1.015 Urine Protein 100 H Urine Glucose [...] insufficiency fracture again noted, unchanged. Reading Location: [id number] Brain CT 01/02/25 03:55 IMPRESSION: No intracranial hemorrhage, mass effect or calvarial fracture. Moderate volume loss, atrophy again noted. Mild left maxillary sinus disease appears mildly decreased from the prior study. Reading Location: [facility] Cervical Spine CT 01/02/25 03:55 IMPRESSION: No fracture or malalignment. Multilevel spondylosis/discogenic change greatest at C5-6 Reading Location: [facility] Discharge Plan Triage Chief Complaint: Weakness [...] NP-C [Primary Care Provider] - Print Language: Bruneian Disposition Disposition: Acute Care Hospital [facility] What to do if you have Problems For any increased pain, shortness of breath, bleeding, nausea or vomiting, chestpain, or any unexpected problems, contact your Primary Care Provider. Call [facility] ([phone]) or report to the closest Emergency Room. Call 911 if necessary. 01/02/25 0600 <Electronically signed by Roddy Reeves DO> Cosigner Signature (if applicable): CC: YG Elias ~ Signed [facility] Work Phone: Discharge summary Author Mina Blood [facility] Note Date/Time February 08, 2025 3:03a m [facility] Medical Records Department [address] [place] [address] Emergency Department Summary 02/08/25 MR#: [id number] Acct: [id number] Name: FRANKLIN ARCHULETA Rep #:[id number] : 1965 59 From: [...] bouts of constipation fevers chills or dysuria. [facility] Medical History (Updated 02/08/25 @ 03:03 by [...] surgery as fat necrosis is a nonemergent fmb-qvdi-xyrzljmptgj process. The patient will be given pain [...] 72.8 H Lymph % (Auto) 12.8 L Haywood % (Auto) 8.1 Eos % (Auto) 5.4 [...] double-J stent in place. Anasarca. [facility] Discharge Plan Triage Chief Complaint: Abd Pain [...] Ambulatory Orders: Paracentesis with US (Routine) Facility: [facility] - Location: [facility] Ordered By: Dr. Mina Blood Primary [...] you have any further concerns. Print Language: Bruneian Disposition Disposition: Home, Self Care What to do if you have Problems For any increased pain, shortness of breath, bleeding, nausea or vomiting, chestpain, or any unexpected problems, contact your Primary Care Provider. Call [facility] ([phone]) or report to the closest Emergency Room. Call 911 if necessary. 02/08/25 0303 <Electronically signed by Mina Blood DO> Cosigner Signature (if applicable): CC: Dr. Jerald Sherwood MD ~ Signed [facility] Work Phone: Evaluation note* Diagnosis Other ascites- Primary Abdominal pain, generalized Cirrhosis of liver with ascites, unspecified hepatic cirrhosis type (Multi) Peripheral edema Edema Coagulopathy (Multi) Other and unspecified coagulation defects Hyperbilirubinemia Disorders of bilirubin excretion documented in this encounter [facility] Work Phone: Evaluation note* Diagnosis Metabolic dysfunction-associated steatohepatitis (MASH)- [facility] Liver transplant candidate- Primary Metabolic dysfunction-associated steatohepatitis (MASH) [facility] Diagnosis Pre-transplant evaluation for liver transplant- Primary [facility] Diagnosis Liver transplant candidate- Primary Pre-operative clearance Preoperative examination, unspecified [facility]* Diagnosis Screening for genitourinary condition Screening for other and unspecified genitourinary condition [facility] Author Buster Fuchs [facility] Note Date/Time January 02, 2025 6:44a m [facility] Medical Records Department [address] [place] [address] H&P Exam - Hospitalist 01/02/25 0556 MR#: [id number] Acct: [id number] Name: FRANKLIN ARCHULETA Rep #:[id number] : 1965 59 From: Buster duarte MD PCP: BRITTANY PenaC Status:ADM I N Location: [place] [address] HPI - General General Date of Admission: [...] time he was transferred to 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 Was not considered to be a liver transplant candidate and was placed on anticoagulation. He has had a couple of readmissions for weakness and debility. Hecker to possibly have aUTI given a staghorn [...] Heis receiving potassium infusion in the ER. [facility] Medical History Weakness Diarrhea Sepsis [...] (Auto) 68.0, Lymph % (Auto) 12.2 L, Haywood % (Auto) 11.9 H, Eos % (Auto) [...] insufficiency fracture again noted, unchanged. Reading Location: [facility] Brain CT 01/02/25 03:55 IMPRESSION: No intracranial hemorrhage, mass effect or calvarial fracture. Moderate volume loss, atrophy again noted. Mild left maxillary sinus disease appears mildly decreased from the prior study. Reading Location: [facility] Cervical Spine CT 01/02/25 03:55 IMPRESSION: No fracture or malalignment. Multilevel spondylosis/discogenic change greatest at C5-6 Reading Location: [facility] Assessment & Plan Assessment/Plan (1) Fall: [...] once verified Charges/Coding Visit Charges Inpatient E&M: 51808 Init Hosp L2 01/02/25 0644 <Electronically signed by Buster Fuchs MD> Cosigner Signature (if applicable): CC: YG Elias; Dr. Buster Fuchs MD~ Signed [facility] Work Phone: Hospital Discharge instructions* Attachments The following attachments cannot be sent through Care Everywhere. * Cirrhosis (Bruneian) * Abdominal pain (Bruneian) documented in this [facility] Work Phone: Hospital Discharge instructions Additional [...] the ER should you have any further concernsWUniversity [facility] Work Phone: Hospital Discharge instructionsAdditional [...] the ER should you have any further concerns.[facility] Work Phone: Hospital Discharge instructionsAdditional Instructions Thank you for trusting us with your care today! Please take Tylenol (2 pills, 650 mg), ibuprofen (2 pills, 400 mg) every 6 hours as needed for pain and fever control. Please return to the emergency department if your symptoms change or worsen. Please follow with your primary care physician for further outpatient evaluation and management.[facility] Work Phone: Hospital Discharge instructionsAdditional Instructions Take your short acting insulin and long-acting insulin as home as prescribed, you may need to give additional units if it continues to run high. Contact your hospice group.[facility] Work Phone: Hospital Discharge instructionsAdditional Instructions Date of Discharge: 04/10/25W[facility] Work Phone: Reason for referral (narrative)No reason for referral information availableWUniversity Hospitals [facility] Work Phone: Summary Purpose Family [...] Will No August 21 2:51pm Power of Manager Developmental No August 21, 2024 2:51pm Living Will No August 30 12:39am Power of Manager Developmental No August 30, 2024 12:39am Living Will No September 05 4:42am Power of Manager Developmental No September 05, 2024 4:42am Advance Directive Response Recorded Date/ Time Living Will No August 21 2:51pm Do you have a Healthcare Power of Manager Developmental? No August 21, 2024 2:51pm Living Will No August 30 12:39am Do you have a Healthcare Power of Manager Developmental? No August 30, 2024 12:39am Living Will No September 05 4:42am Do you have a Healthcare Power of Manager Developmental? No September 05, 2024 4:42am Living Will No October 28, 2024 5:24pm Do you have a Healthcare Power of Manager Developmental? No October 28, 2024 5:24pm Advance Directive Response Recorded Date/ Time Living Will No August 21 2:51pm Do you have a Healthcare Power of Manager Developmental? No August 21, 2024 2:51pm Living Will No August 30 12:39am Do you have a Healthcare Power of Manager Developmental? No August 30, 2024 12:39am Living Will No September 05 4:42am Do you have a Healthcare Power of Manager Developmental? No September 05, 2024 4:42am Living Will No October 29, 2024 1:46am Do you have a Healthcare Power of Manager Developmental? No October 29, 2024 1:46am Date Activated Date Inactivated Comments 11/11/2024 7:22 AM Question Answer Comments Full Code Order Discussed With: Patient Date Activated Date Inactivated Comments 11/11/2024 7:22 AM Advance Directive Response Recorded Date/ Time Living Will No August 21 2:51pm Do you have a Healthcare Power of Manager Developmental? No August 21, 2024 2:51pm Living Will No August 30 12:39am Do you have a Healthcare Power of Manager Developmental? No August 30, 2024 12:39am Living Will No September 05 4:42am Do you have a Healthcare Power of Manager Developmental? No September 05, 2024 4:42am Living Will No October 29, 2024 1:46am Do you have a Healthcare Power of Manager Developmental? No October 29, 2024 1:46am Living Will Yes November 21, 2024 1:32am Do you have a Healthcare Power of Manager Developmental? Yes November 21, 2024 1:32am Name of Medical Power of Manager Developmental anne Hernandez November 21, 2024 1:32am Advance Directive Response Recorded Date/ Time Living Will No August 21 2:51pm Do you have a Healthcare Power of Manager Developmental? No August 21, 2024 2:51pm Living Will No August 30 12:39am Do you have a Healthcare Power of Manager Developmental? No August 30, 2024 12:39am Living Will No September 05 4:42am Do you have a Healthcare Power of Manager Developmental? No September 05, 2024 4:42am Living Will No October 29, 2024 1:46am Do you have a Healthcare Power of Manager Developmental? No October 29, 2024 1:46am Living Will Yes November 21, 2024 5:32am Do you have a Healthcare Power of Manager Developmental? Yes November 21, 2024 5:32am Name of Medical Power of Manager Developmental anne Hernandez November 21, 2024 5:32am Do you have a Healthcare Power of Manager Developmental? No November 28, 2024 5:49pm Advance Directive Response Recorded Date/ Time Living Will No August 30 12:39am Do you have a Healthcare Power of Manager Developmental? No August 30, 2024 12:39am Living Will No September 05 4:42am Do you have a Healthcare Power of Manager Developmental? No September 05, 2024 4:42am Living Will No October 29, 2024 1:46am Do you have a Healthcare Power of Manager Developmental? No October 29, 2024 1:46am Living Will Yes November 21, 2024 5:32am Do you have a Healthcare Power of Manager Developmental? Yes November 21, 2024 5:32am Name of Medical Power of Manager Developmental anne Hernandez November 21, 2024 5:32am Do you have a Healthcare Power of Manager Developmental? No November 28, 2024 5:49pm Advance Directive Response Recorded Date/ Time Living Will No August 30 12:39am Do you have a Healthcare Power of Manager Developmental? No August 30, 2024 12:39am Living Will No September 05 4:42am Do you have a Healthcare Power of Manager Developmental? No September 05, 2024 4:42am Living Will No October 29, 2024 1:46am Do you have a Healthcare Power of Manager Developmental? No October 29, 2024 1:46am Living Will Yes November 21, 2024 5:32am Do you have a Healthcare Power of Manager Developmental? Yes November 21, 2024 5:32am Name of Medical Power of Manager Developmental anne Hernandez November 21, 2024 5:32am Do you have a Healthcare Power of Manager Developmental? No November 28, 2024 5:49pm Do you have a Healthcare Power of Manager Developmental? No December 26, 2024 10:02am Advance Directive Response Recorded Date/ Time Living Will No August 30 12:39am Do you have a Healthcare Power of Manager Developmental? No August 30, 2024 12:39am Living Will No September 05 4:42am Do you have a Healthcare Power of Manager Developmental? No September 05, 2024 4:42am Living Will No October 29, 2024 1:46am Do you have a Healthcare Power of Manager Developmental? No October 29, 2024 1:46am Living Will Yes November 21, 2024 5:32am Do you have a Healthcare Power of Manager Developmental? Yes November 21, 2024 5:32am Name of Medical Power of Manager Developmental anne Hernandez November 21, 2024 5:32am Do you have a Healthcare Power of Manager Developmental? No November 28, 2024 5:49pm Do you have a Healthcare Power of Manager Developmental? No December 26, 2024 10:02am Do you have a Healthcare Power of Manager Developmental? No December 30, 2024 1:06am Advance Directive Response Recorded Date/ Time Do you have a Healthcare Power of Manager Developmental? No January 02, 2025 2:59am Living Will No September 05 4:42am Do you have a Healthcare Power of Manager Developmental? No September 05, 2024 4:42am Living Will No October 29, 2024 1:46am Do you have a Healthcare Power of Manager Developmental? No October 29, 2024 1:46am Living Will Yes November 21, 2024 5:32am Do you have a Healthcare Power of Manager Developmental? Yes November 21, 2024 5:32am Name of Medical Power of Manager Developmental anne Hernandez November 21, 2024 5:32am Do you have a Healthcare Power of Manager Developmental? No November 28, 2024 5:49pm Do you have a Healthcare Power of Manager Developmental? No December 26, 2024 10:02am Do you have a Healthcare Power of Manager Developmental? No December 30, 2024 1:06am Advance Directive Response Recorded Date/ Time Do you have a Healthcare Power of Manager Developmental? No January 02, 2025 8:14am Living Will No September 05 4:42am Do you have a Healthcare Power of Manager Developmental? No September 05, 2024 4:42am Living Will No October 29, 2024 1:46am Do you have a Healthcare Power of Manager Developmental? No October 29, 2024 1:46am Living Will Yes November 21, 2024 5:32am Do you have a Healthcare Power of Manager Developmental? Yes November 21, 2024 5:32am Name of Medical Power of Manager Developmental anne Hernandez November 21, 2024 5:32am Do you have a Healthcare Power of Manager Developmental? No November 28, 2024 5:49pm Do you have a Healthcare Power of Manager Developmental? No December 26, 2024 10:02am Do you have a Healthcare Power of Manager Developmental? No December 30, 2024 1:06am Advance Directive Response Recorded Date/ Time Do you have a Healthcare Power of Manager Developmental? No January 02, 2025 8:14am Living Will No September 05 4:42am Do you have a Healthcare Power of Manager Developmental? No September 05, 2024 4:42am Living Will No October 29, 2024 1:46am Do you have a Healthcare Power of Manager Developmental? No October 29, 2024 1:46am Living Will Yes November 21, 2024 5:32am Do you have a Healthcare Power of Manager Developmental? Yes November 21, 2024 5:32am Name of Medical Power of Manager Developmental anne Hernandez November 21, 2024 5:32am Do you have a Healthcare Power of Manager Developmental? No November 28, 2024 5:49pm Do you have a Healthcare Power of Manager Developmental? No December 26, 2024 10:02am Do you have a Healthcare Power of Manager Developmental? No December 30, 2024 1:06am Do you have a Healthcare Power of Manager Developmental? No January 09, 2025 10:10am Advance Directive Response Recorded Date/ Time Do you have a Healthcare Power of Manager Developmental? No January 02, 2025 8:14am Living Will No October 29, 2024 1:46am Do you have a Healthcare Power of Manager Developmental? No October 29, 2024 1:46am Living Will Yes November 21, 2024 5:32am Do you have a Healthcare Power of Manager Developmental? Yes November 21, 2024 5:32am Name of Medical Power of Manager Developmental anne Hernandez November 21, 2024 5:32am Do you have a Healthcare Power of Manager Developmental? No November 28, 2024 5:49pm Do you have a Healthcare Power of Manager Developmental? No December 26, 2024 10:02am Do you have a Healthcare Power of Manager Developmental? No December 30, 2024 1:06am Do you have a Healthcare Power of Manager Developmental? No January 09, 2025 3:31pm Advance Directive Response Recorded Date/ Time Do you have a Healthcare Power of Manager Developmental? No January 02, 2025 8:14am Do you have a Healthcare Power of Manager Developmental? No January 28, 2025 3:02am Living Will No October 29, 2024 1:46am Do you have a Healthcare Power of Manager Developmental? No October 29, 2024 1:46am Living Will Yes November 21, 2024 5:32am Do you have a Healthcare Power of Manager Developmental? Yes November 21, 2024 5:32am Name of Medical Power of Manager Developmental héctor Hernandezgabrielle November 21, 2024 5:32am Do you have a Healthcare Power of Manager Developmental? No November 28, 2024 5:49pm Do you have a Healthcare Power of Manager Developmental? No December 26, 2024 10:02am Do you have a Healthcare Power of Manager Developmental? No December 30, 2024 1:06am Do you have a Healthcare Power of Manager Developmental? No January 09, 2025 3:31pm Advance Directive Response Recorded Date/ Time Do you have a Healthcare Power of Manager Developmental? No January 02, 2025 8:14am Do you have a Healthcare Power of Manager Developmental? No January 28, 2025 3:02am Living Will No October 29, 2024 1:46am Do you have a Healthcare Power of Manager Developmental? No October 29, 2024 1:46am Living Will Yes November 21, 2024 5:32am Do you have a Healthcare Power of Manager Developmental? Yes November 21, 2024 5:32am Name of Medical Power of Manager Developmental anne Hernandez November 21, 2024 5:32am Do you have a Healthcare Power of Manager Developmental? No November 28, 2024 5:49pm Do you have a Healthcare Power of Manager Developmental? No December 26, 2024 10:02am Do you have a Healthcare Power of Manager Developmental? No December 30, 2024 1:06am Do you have a Healthcare Power of Manager Developmental? No January 09, 2025 3:31pm Do you have a Healthcare Power of Manager Developmental? No February 07, 2025 10:20pm Advance Directive Response Recorded Date/ Time Do you have a Healthcare Power of Manager Developmental? No January 02, 2025 8:14am Do you have a Healthcare Power of Manager Developmental? No January 28, 2025 3:02am Living Will No October 29, 2024 1:46am Do you have a Healthcare Power of Manager Developmental? No October 29, 2024 1:46am Living Will Yes November 21, 2024 5:32am Do you have a Healthcare Power of Manager Developmental? Yes November 21, 2024 5:32am Name of Medical Power of Manager Developmental anne Hernandez November 21, 2024 5:32am Do you have a Healthcare Power of Manager Developmental? No November 28, 2024 5:49pm Do you have a Healthcare Power of Manager Developmental? No December 26, 2024 10:02am Do you have a Healthcare Power of Manager Developmental? No December 30, 2024 1:06am Do you have a Healthcare Power of Manager Developmental? No January 09, 2025 3:31pm Do you have a Healthcare Power of Manager Developmental? No February 07, 2025 10:20pm Do you have a Healthcare Power of Manager Developmental? No February 13, 2025 4:40pm Advance Directive Response Recorded Date/ Time Do you have a Healthcare Power of Manager Developmental? No January 02, 2025 8:14am Do you have a Healthcare Power of Manager Developmental? No January 28, 2025 3:02am Living Will No October 29, 2024 1:46am Do you have a Healthcare Power of Manager Developmental? No October 29, 2024 1:46am Living Will Yes November 21, 2024 5:32am Do you have a Healthcare Power of Manager Developmental? Yes November 21, 2024 5:32am Name of Medical Power of Manager Developmental Mary héctorgabrielle November 21, 2024 5:32am Do you have a Healthcare Power of Manager Developmental? No November 28, 2024 5:49pm Do you have a Healthcare Power of Manager Developmental? No December 26, 2024 10:02am Do you have a Healthcare Power of Manager Developmental? No December 30, 2024 1:06am Do you have a Healthcare Power of Manager Developmental? No January 09, 2025 3:31pm Do you have a Healthcare Power of Manager Developmental? No February 07, 2025 10:20pm Do you have a Healthcare Power of Manager Developmental? No February 13, 2025 4:40pm Do you have a Healthcare Power of Manager Developmental? No February 16, 2025 6:30pm Advance Directive Response Recorded Date/ Time Do you have a Healthcare Power of Manager Developmental? No January 02, 2025 8:14am Do you have a Healthcare Power of Manager Developmental? No January 28, 2025 3:02am Living Will No October 29, 2024 1:46am Do you have a Healthcare Power of Manager Developmental? No October 29, 2024 1:46am Living Will Yes November 21, 2024 5:32am Do you have a Healthcare Power of Manager Developmental? Yes November 21, 2024 5:32am Name of Medical Power of Manager Developmental anne Hernandez November 21, 2024 5:32am Do you have a Healthcare Power of Manager Developmental? No November 28, 2024 5:49pm Do you have a Healthcare Power of Manager Developmental? No December 26, 2024 10:02am Do you have a Healthcare Power of Manager Developmental? No December 30, 2024 1:06am Do you have a Healthcare Power of Manager Developmental? No January 09, 2025 3:31pm Do you have a Healthcare Power of Manager Developmental? No February 07, 2025 10:20pm Do you have a Healthcare Power of Manager Developmental? No February 13, 2025 4:40pm Do you have a Healthcare Power of Manager Developmental? No February 16, 2025 7:47pm Advance Directive Response Recorded Date/ Time Do you have a Healthcare Power of Manager Developmental? No January 02, 2025 8:14am Do you have a Healthcare Power of Manager Developmental? No January 28, 2025 3:02am Do you have a Healthcare Power of Manager Developmental? No February 25, 2025 5:00pm Living Will No October 29, 2024 1:46am Do you have a Healthcare Power of Manager Developmental? No October 29, 2024 1:46am Living Will Yes November 21, 2024 5:32am Do you have a Healthcare Power of Manager Developmental? Yes November 21, 2024 5:32am Name of Medical Power of Manager Developmental Maryhéctor ramgabrielle November 21, 2024 5:32am Do you have a Healthcare Power of Manager Developmental? No November 28, 2024 5:49pm Do you have a Healthcare Power of Manager Developmental? No December 26, 2024 10:02am Do you have a Healthcare Power of Manager Developmental? No December 30, 2024 1:06am Do you have a Healthcare Power of Manager Developmental? No January 09, 2025 3:31pm Do you have a Healthcare Power of Manager Developmental? No February 07, 2025 10:20pm Do you have a Healthcare Power of Manager Developmental? No February 13, 2025 4:40pm Do you have a Healthcare Power of Manager Developmental? No February 16, 2025 7:47pm Do you have a Healthcare Power of Manager Developmental? No March 11, 2025 5:16pm Advance Directive Response Recorded Date/ Time Do you have a Healthcare Power of Manager Developmental? No January 02, 2025 8:14am Do you have a Healthcare Power of Manager Developmental? No January 28, 2025 3:02am Do you have a Healthcare Power of Manager Developmental? No February 25, 2025 5:00pm Do you have a Healthcare Power of Manager Developmental? No April 03, 2025 8:27pm Do you have a Healthcare Power of Manager Developmental? No December 26, 2024 10:02am Do you have a Healthcare Power of Manager Developmental? No December 30, 2024 1:06am Do you have a Healthcare Power of Manager Developmental? No January 09, 2025 3:31pm Do you have a Healthcare Power of Manager Developmental? No February 07, 2025 10:20pm Do you have a Healthcare Power of Manager Developmental? No February 13, 2025 4:40pm Do you have a Healthcare Power of Manager Developmental? No February 16, 2025 7:47pm Do you have a Healthcare Power of Manager Developmental? No March 10, 2025 8:43am Do you have a Healthcare Power of Manager Developmental? No March 11, 2025 5:16pm Do you have a Healthcare Power of Manager Developmental? No April 07, 2025 7:00pm Advance Directive Response Recorded Date/ Time Do you have a Healthcare Power of Manager Developmental? No January 02, 2025 8:14am Do you have a Healthcare Power of Manager Developmental? No January 28, 2025 3:02am Do you have a Healthcare Power of Manager Developmental? No February 25, 2025 5:00pm Do you have a Healthcare Power of Manager Developmental? No April 03, 2025 8:27pm Do you have a Healthcare Power of Manager Developmental? No December 26, 2024 10:02am Do you have a Healthcare Power of Manager Developmental? No December 30, 2024 1:06am Do you have a Healthcare Power of Manager Developmental? No January 09, 2025 3:31pm Do you have a Healthcare Power of Manager Developmental? No February 07, 2025 10:20pm Do you have a Healthcare Power of Manager Developmental? No February 13, 2025 4:40pm Do you have a Healthcare Power of Manager Developmental? No February 16, 2025 7:47pm Do you have a Healthcare Power of Manager Developmental? No March 10, 2025 8:43am Do you have a Healthcare Power of Manager Developmental? No March 11, 2025 5:16pm Do you have a Healthcare Power of Manager Developmental? No April 07, 2025 11:36pm Chief Complaint [...] 2024 5:04pm SEPSIS WITH STAGHORN CALCULI September 6t [...] 12:43am History of uric acid staghorn calculus [facility] 2024 12:43am Hyponatremia October 29, 2024 12: [...] 2024 1:46am SEPSIS WITH STAGHORN CALCULI September 82024 10:36am [...] Date SEPSIS, UTI, DIARRHEA & ABDOMINAL PAIN [facility] 2024 12:43am Weakness November 21, 2024 4:2 [...] Thrombus Procedures Evaluate and treat [facility] [id number] [place] [address] Phone: tel: Referral ID Status Reason Start Date Expiration Date Visits Re quested Visits Authorized [id number] 1 1 Reason Comments Abdominal Pain Patient [...] 2024 End: November 11, 2024 Yue Delgadillo [employer]CRAFT LOADMASTER SUPERINTENDENT, AIRCRAFT LOADMASTER SUPERINTENDENT-C Other Provider Active St art: October 29, [...] November 10, 2024 Dr. Hill Caro , Other Provider Active Start: November 10, 2024 [...] Sta rt: November 10, 2024 Yue Delgadillo AIRCRAFT LOADMASTER SUPERINTENDENT, AIRCRAFT LOADMASTER SUPERINTENDENT-C Other Provider Active St art: November 10, [...] Active Start: November 25, 2024 Dr. Anurag Ireen MD Attending Provider Active Start: November 25, [...] Inactive Member Role Status Dates Josy Elias AIRCRAFT LOADMASTER SUPERINTENDENT-C Primary Care Provider Active Start: December 07, 2024 End: December 07, 2024 Josy Elias NP-C Attending Provider Active Start: December 07, 2024 End: December 07, 2024 Team Status: Inactive Member Role Status Dates Josy Elias AIRCRAFT LOADMASTER SUPERINTENDENT-C Primary Care Provider Active Start: December 15, 2024 End: December 15, 2024 Josy Elias NP-C Attending Provider Active Start: December 15, 2024 End: December 15, 2024 Josy Elias NP-C Referring Provider Active Start: December 15, 2024 End: December 15, 2024 Team Status: Inactive Member Role Status Dates Josy Elias [employer]CRAFT LOADMASTER SUPERINTENDENT-C Primary Care Provider Active Start: December 26, 2024 End: December 26, 2024 Dr. Boone Carvajal DO Attending Provider Active Start: December 26, 2024 End: December 26, 2024 Dr. Boone Carvajal DO Emergency Provider Active Start: December 26, 2024 End: December 26, 2024 Team Status: Inactive Member Role Status Dates Josy Elias [employer]CRAFT LOADMASTER SUPERINTENDENT-C Primary Care Provider Active Start: December 30, 2024 End: December 30, 2024 Dr. Mina Blood DO Attending Provider Active Start: December 30, 2024 End: December 30, 2024 Dr. Mina Blood DO Emergency Provider Active Start: December 30, 2024 End: December 30, 2024 Team Status: Inactive Member Role Status Dates Josy Elias AIRCRAFT LOADMASTER SUPERINTENDENT-C Primary Care Provider Active Start: January 02, [...] Active Member Role Status Dates Josy Elias AIRCRAFT LOADMASTER SUPERINTENDENT-C Primary Care Provider Active Start: January 03, [...] Active Member Role Status Dates Josy Elias [employer]CRAFT LOADMASTER SUPERINTENDENT-C Primary Care Provider Active Start: January 04, [...] Status: Active Member Role Status Dates Josy Elais [employer]CRAFT LOADMASTER SUPERINTENDENT-C Primary Care Provider Active Start: January 05, [...] Inactive Member Role Status Dates Josy Elias [employer]CRAFT LOADMASTER SUPERINTENDENT-C Primary Care Provider Active Start: January 09, [...] Active Member Role Status Dates Josy Elias AIRCRAFT LOADMASTER SUPERINTENDENT-C Primary Care Provider Active Start: January 10, [...] Active Member Role Status Dates Josy Elias AIRCRAFT LOADMASTER SUPERINTENDENT-C Primary Care Provider Active Start: January 11, [...] Active Member Role Status Dates Josy Elias AIRCRAFT LOADMASTER SUPERINTENDENT-C Primary Care Provider Active Start: January 11, [...] Active Member Role Status Dates Josy Elias [employer]CRAFT LOADMASTER SUPERINTENDENT-C Primary Care Provider Active Start: January 11, [...] Active Member Role Status Dates Josy Elias AIRCRAFT LOADMASTER SUPERINTENDENT-C Primary Care Provider Active Start: January 12, [...] Member Role Status Dates Josy Tannhof , AIRCRAFT LOADMASTER SUPERINTENDENT-C Primary Care Provider Active Start: January 18, [...] Active Start : January 19, 2025 Dr. Jfeferson Malave MD Other Provider Active St art: [...] Active Start: September 06, 2024 Dr. Mina Xei MD Other Provider Active Start : September [...] Provider Active Start: September 10, 2024 Dr. Jea Ash DO Attending Provider Active Start: September [...] Active Start: September 12, 2024 Dr. Thai Thruston MD Other Provider Active Start: September 12, [...] 2024 MINDY CONTRERAS Attending Provider Active Start: [facility]2024 End: September 29, 2024 MINDY CONTRERAS Referring Provider Active Start: 2024 End: September 29, 2024 Team Status: Active Member Role Status Dates No Primary Care Physician Primary Care Provider Active Start: September 29, 2024 DIANE BILLKarma Referring Provider Active Start: 2024 MINDY CONTRERAS Other Provider Active Start: 2024 Jasmine Morocho AIRCRAFT LOADMASTER SUPERINTENDENT, AIRCRAFT LOADMASTER SUPERINTENDENT-C Attending Provider Active Start: September 29, 2024 Case Planner Relationship Specialty Start Date End Date Maurice Fitch MD [address] [place] [address] PCP - General Internal Medicine 09/21/24 Team [...] Inactive Member Role Status Dates Josy Elias [employer]CRAFT LOADMASTER SUPERINTENDENT-C Primary Care Provider Active Start: December 26, 2024 End: December 26, 2024 Dr. Boone Carvajal , DO Emergency Provider Active Start: December 26, 2024 End: December 26, 2024 Team Status: Inactive Member Role Status Dates Josy Elias AIRCRAFT LOADMASTER SUPERINTENDENT-C Primary Care Provider Active Start: December 30, 2024 End: December 30, 2024 Dr. Mina Blood , DO Emergency Provider Active Start: December 30, 2024 End: December 30, 2024 Team Status: Active Member Role Status Dates Josy Elias [employer]CRAFT LOADMASTER SUPERINTENDENT-C Primary Care Provider Active Start: January 02, 2025 Dr. Roddy Reeves , Emergency Provider Active Start: January 02, 2025 Dr. Buster Fuchs MD Admit Provider Active Start: January 02, 2025 Dr. Buster Fuchs MD Attending Provider Active Start: January 02, 2025 Dr. Buster Fuchs MD Other Provider Active Start: January 02, 2025 Team Status: Active Member Role Status Dates Josy Elias AIRCRAFT LOADMASTER SUPERINTENDENT-C Primary Care Provider Active Start: January 09, 2025 Dr. Breann Mendez , Emergency Provider Active S tart: January 09, 2025 Dr. Yaritza Leo , Admit Provider Active Start : January 09, 2025 Dr. Yaritza Leo , Attending Provider Active S tart: January 09, 2025 Team Status: Active Member Role Status Dates Josy Elias AIRCRAFT LOADMASTER SUPERINTENDENT-C Primary Care Provider Active Start: January 11, 2025 Dr. Breann Mendez DO Emergency Provider Active S tart: January 11, 2025 Dr. Yaritza Leo , Admit Provider Active Start : January 11, 2025 Dr. Yaritza Leo , Other Provider Active Start : January 11, [...] 2024 End: November 11, 2024 Yue Delgadillo AIRCRAFT LOADMASTER SUPERINTENDENT, AIRCRAFT LOADMASTER SUPERINTENDENT-C Other Provider Active St art: October 29, 2024 End: November 11, 2024 Dr. Gwendolyn Logan MD Other Provider Active Sta rt: October 29, 2024 Dr. Stella Mosher MD Other Provider Active Sta rt: October 29, 2024 Dr. Pato Venegas MD Other Provider Active Star t: October 29, 2024 Dr. Elver Mancilla MD Other Provider Active St art: October 29, 2024 Dr. Nadeem uA MD Other Provider Active Star t: October [...] Sta rt: November 10, 2024 Yue Delgadillo AIRCRAFT LOADMASTER SUPERINTENDENT, AIRCRAFT LOADMASTER SUPERINTENDENT-C Other Provider Active St art: November 10, [...] November 23, 2024 Dr. Jae Ash , Other Provider [...] Member Role/Relationship Status Dates Josydominique Baumannhof , AIRCRAFT LOADMASTER SUPERINTENDENT-C Primary Care Provider Active Start: December 07, 2024 End: December 07, 2024 Josydominique Elias , AIRCRAFT LOADMASTER SUPERINTENDENT-C Attending Provider Active Start: December 07, 2024 End: December 07, 2024 Team Status: Inactive Member Role/Relationship Status Dates Josydominique Baumannhof , AIRCRAFT LOADMASTER SUPERINTENDENT-C Primary Care Provider Active Start: December 15, 2024 End: December 15, 2024 Josydominique Elias , AIRCRAFT LOADMASTER SUPERINTENDENT-C Attending Provider Active Start: December 15, 2024 End: December 15, 2024 Josydominique Baumannhof , AIRCRAFT LOADMASTER SUPERINTENDENT-C Referring Provider Active Start: December 15, 2024 End: December 15, 2024 Team Status: Inactive Member Role/Relationship Status Dates Josydominique Baumannhof , AIRCRAFT LOADMASTER SUPERINTENDENT-C Primary Care Provider Active Start: December 26, 2024 End: December 26, 2024 Dr. Boone Carvajal , Attending Provider Active Start: December 26, 2024 End: December 26, 2024 Dr. Boone Carvajal , Emergency Provider Active Start: December 26, 2024 End: December 26, 2024 Team Status: Inactive Member Role/Relationship Status Dates Josydominique Baumannhof , AIRCRAFT LOADMASTER SUPERINTENDENT-C Primary Care Provider Active Start: December 30, 2024 End: December 30, 2024 Dr. Mina Blood , Attending Provider Active Start: December 30, 2024 End: December 30, 2024 Dr. Mina Blood , DO Emergency Provider Active Start: December 30, 2024 End: December 30, 2024 Team Status: Inactive Member Role/Relationship Status Dates Josy Elias AIRCRAFT LOADMASTER SUPERINTENDENT-C Primary Care Provider Active Start: January 02, [...] Active Member Role/Relationship Status Dates Josy Elias AIRCRAFT LOADMASTER SUPERINTENDENT-C Primary Care Provider Active Start: January 03, [...] Active Member Role/Relationship Status Dates Josy Elias AIRCRAFT LOADMASTER SUPERINTENDENT-C Primary Care Provider Active Start: January 04, [...] Active Member Role/Relationship Status Dates Josy Elias AIRCRAFT LOADMASTER SUPERINTENDENT-C Primary Care Provider Active Start: January 05, [...] Inactive Member Role/Relationship Status Dates Josy Elias AIRCRAFT LOADMASTER SUPERINTENDENT-C Primary Care Provider Active Start: January 09, [...] Member Role/Relationship Status Dates Josy Tannhof , AIRCRAFT LOADMASTER SUPERINTENDENT-C Primary Care Provider Active Start: January 11, [...] Active Member Role/Relationship Status Dates Josy Elias AIRCRAFT LOADMASTER SUPERINTENDENT-C Primary Care Provider Active Start: January 11, [...] Active Member Role/Relationship Status Dates Josy Elias AIRCRAFT LOADMASTER SUPERINTENDENT-C Primary Care Provider Active Start: January 11, [...] Active Member Role/Relationship Status Dates Josy Elias AIRCRAFT LOADMASTER SUPERINTENDENT-C Primary Care Provider Active Start: January 12, [...] Active Start: January 13, 2025 Dr. Cielo oTvar MD Other Provider [...] Active Member Role/Relationship Status Dates Josy Elias AIRCRAFT LOADMASTER SUPERINTENDENT-C Primary Care Provider Active Start: January 15, [...] [facility] Primary Care Provider Active Start: January 16, [...] February 16, 2025 Dr. Jae Ash , Admit Provider Active Start: February 16, 2025 Dr. Jae Ash , Other Provider [...] 2024 End: November 11, 2024 Yue Delgadillo AIRCRAFT LOADMASTER SUPERINTENDENT, AIRCRAFT LOADMASTER SUPERINTENDENT-C Other Provider Active St art: October 29, [...] Provider Active Start: November 24, 2024 Dr. Jea Ash , DO Admit Provider Active Start: [...] Member Role/Relationship Status Dates Josy Tannhof , AIRCRAFT LOADMASTER SUPERINTENDENT-C Primary Care Provider Active Start: December 07, 2024 End: December 07, 2024 Josy Tannhof , AIRCRAFT LOADMASTER SUPERINTENDENT-C Attending Provider Active Start: December 07, 2024 End: December 07, 2024 Team Status: Inactive Member Role/Relationship Status Dates Josy Tannhof , AIRCRAFT LOADMASTER SUPERINTENDENT-C Primary Care Provider Active Start: December 15, 2024 End: December 15, 2024 Josy Tannhof , AIRCRAFT LOADMASTER SUPERINTENDENT-C Attending Provider Active Start: December 15, 2024 End: December 15, 2024 Josy Tannhof , AIRCRAFT LOADMASTER SUPERINTENDENT-C Referring Provider Active Start: December 15, 2024 End: December 15, 2024 Team Status: Inactive Member Role/Relationship Status Dates Josy Tannhof , AIRCRAFT LOADMASTER SUPERINTENDENT-C Primary Care Provider Active Start: December 26, 2024 End: December 26, 2024 Dr. Boone Carvajal DO Attending Provider Active Start: December 26, 2024 End: December 26, 2024 Dr. Boone Carvajal DO Emergency Provider Active Start: December 26, 2024 End: December 26, 2024 Team Status: Inactive Member Role/Relationship Status Dates Josy Tannhof , AIRCRAFT LOADMASTER SUPERINTENDENT-C Primary Care Provider Active Start: December 30, 2024 End: December 30, 2024 Dr. Mina Blood DO Attending Provider Active Start: December 30, 2024 End: December 30, 2024 Dr. Mina Blood DO Emergency Provider Active Start: December 30, 2024 End: December 30, 2024 Team Status: Inactive Member Role/Relationship Status Dates Josydominique Elias , AIRCRAFT LOADMASTER SUPERINTENDENT-C Primary Care Provider Active Start: January 02, [...] Team Status: Active Member Role/Relationship Status Dates oJsy Elias , AIRCRAFT LOADMASTER SUPERINTENDENT-C Primary Care Provider Active Start: January 03, [...] Member Role/Relationship Status Dates Josy Elias , AIRCRAFT LOADMASTER SUPERINTENDENT-C Primary Care Provider Active Start: January 04, [...] Member Role/Relationship Status Dates Josy Elias , AIRCRAFT LOADMASTER SUPERINTENDENT-C Primary Care Provider Active Start: January 05, [...] Inactive Member Role/Relationship Status Dates Josy Elias AIRCRAFT LOADMASTER SUPERINTENDENT-C Primary Care Provider Active Start: January 09, [...] Active Member Role/Relationship Status Dates Josy Elias AIRCRAFT LOADMASTER SUPERINTENDENT-C Primary Care Provider Active Start: January 10, [...] Active Member Role/Relationship Status Dates Josy Elias AIRCRAFT LOADMASTER SUPERINTENDENT-C Primary Care Provider Active Start: January 11, [...] Active Member Role/Relationship Status Dates Josy Elias AIRCRAFT LOADMASTER SUPERINTENDENT-C Primary Care Provider Active Start: January 11, [...] Active Member Role/Relationship Status Dates Josy Elias AIRCRAFT LOADMASTER SUPERINTENDENT-C Primary Care Provider Active Start: January 11, [...] Active Member Role/Relationship Status Dates Josy Elias AIRCRAFT LOADMASTER SUPERINTENDENT-C Primary Care Provider Active Start: January 12, [...] Active Member Role/Relationship Status Dates Josy Elias AIRCRAFT LOADMASTER SUPERINTENDENT-C Primary Care Provider Active Start: January 13, [...] Active Member Role/Relationship Status Dates Josy Elias AIRCRAFT LOADMASTER SUPERINTENDENT-C Primary Care Provider Active Start: January 14, 2025 Dr. Brenan Mendez DO Emergency Provider [...] Active Member Role/Relationship Status Dates Josy Elias AIRCRAFT LOADMASTER SUPERINTENDENT-C Primary Care Provider Active Start: January 15, [...] Active Member Role/Relationship Status Dates Josy Elias AIRCRAFT LOADMASTER SUPERINTENDENT-C Primary Care Provider Active Start: January 16, [...] -C Primary Care Provider Active Start: January 17, 2025 Dr. Breann Mendez DO Emergency Provider Active S tart: January 17, 2025 Dr. Yartiza Leo DO Admit Provider [...] 11, 2025 Dr. Mina Blood , DO Other Provider Active Star t: February [...] February 16, 2025 End: February 17, 2025 BRITTANY PenaC Primary Care Provider Active [...] Provider Active Sta rt: February 17, 2025 BRITTANY PenaC Primary Care Provider Active Start: February 17, 2025 Team Status: Inactive Member Role/Relationship Status Dates Josy Elias NP-C Primary Care Provider Active Start: February 24, 2025 End: February 25, 2025 Julita Glover Attending Provider Active Sta rt: February 24, 2025 End: February 25, 2025 BRITTANY PenaC Referring Provider Active Start: February 24, 2025 End: February 25, 2025 YG Pena Other Provider Active Star t: February 24, 2025 End: February 25, 2025 Team Status: Active Member Role/Relationship Status Dates Josy Elias NP-C Primary Care Provider Active Start: February 25, 2025 Dr. Herberth Carlson MD Emergency Provider Active Start: February 25, 2025 Dr. Kathie Lemos MD Attending Provider Active Start: February 25, 2025 Team Status: Inactive Member Role/Relationship Status Dates Josy Elias [employer]-C Primary Care Provider Active Start: February 25, 2025 End: February 27, 2025 Dr. Herberth Carlson MD Emergency Provider Active Start: February 25, 2025 End: February 27, 2025 Dr. Kathie Lemos MD Admit Provider Active Star t: February 25, 2025 End: February 27, 2025 Dr. Kathie Lemos MD Other Provider Active Star t: February 25, 2025 End: February 27, 2025 Dr. Rick Carlin DO Attending Provider Active Start: February 25, 2025 End: February 27, 2025 Team Status: Active Member Role/Relationship Status Dates Josy Elias [employer] SUPERINTENDENT-C Primary Care Provider Active Start: February 25, 2025 Dr. Herberth Carlson MD Emergency Provider Active Start: February 25, 2025 Dr. Kathie Lemos MD Admit Provider Active Star t: February 25, 2025 Dr. Kathie Lemos MD Other Provider Active Star t: February 25, 2025 Dr. Niranjan Li DO Attending Provider Active Start: February 25, 2025 Team Status: Active Member Role/Relationship Status Dates Josy Elias [employer] SUPERINTENDENT-C Primary Care Provider Active Start: February 26, 2025 Dr. Herberth Carlson MD Emergency Provider Active Start: February 26, 2025 Dr. Kathie Lemos MD Admit Provider Active Star t: February 26, 2025 Dr. Kathie Lemos MD Other Provider Active Star t: February 26, 2025 Dr. Rick Carlin DO Attending Provider Active Start: February 26, 2025 Dr. Rick Carlin DO Other Provider Active S tart: February 26, 2025 Team Status: Active Member Role/Relationship Status Dates Josy Elias [employer] SUPERINTENDENT-C Primary Care Provider Active Start: February 27, 2025 Dr. Herberth Carlson MD Emergency Provider Active Start: February 27, 2025 Dr. Kathie Lemos MD Admit Provider Active Star t: February 27, 2025 Dr. Kathie Lemos MD Other Provider Active Star t: February 27, 2025 Dr. Rick Carlin DO Attending Provider Active Start: February 27, 2025 Dr. Rick Carlin DO Other Provider Active S tart: February 27, 2025 Team Status: Active Member Role/Relationship Status Dates Josy Tannhof , [employer] SUPERINTENDENT-C Primary Care Provider Active Start: March 04, 2025 MINDY CONTRERAS Attending Provider Active Start: 2024 DIANE BILLKarma Referring Provider Active Start: [facility] 2024 Team Status: Inactive Member Role/Relationship Status Dates Josy Tannhof , [employer] SUPERINTENDENT-C Primary Care Provider Active Start: March 10, 2025 End: March 10, 2025 Josy Tannhof , [employer] SUPERINTENDENT-C Referring Provider Active Start: March 10, 2025 End: March 10, 2025 Dr. Roby Balderas MD Attending Provider Active Start: March 10, 2025 End: March 10, 2025 Team Status: Inactive Member Role/Relationship Status Dates Josy Tannhof , [employer] SUPERINTENDENT-C Primary Care Provider Active Start: March 11, 2025 End: March 11, 2025 Dr. Alber Dunn MD Emergency Provider Active S tart: March 11, 2025 End: March 11, 2025 Team Status: Inactive Member Role/Relationship Status Dates Josy Tannhof , [employer] SUPERINTENDENT-C Primary Care Provider Active Start: December 15, 2024 End: December 15, 2024 Josy Pastorhof , [employer] SUPERINTENDENT-C Attending Provider Active Start: December 15, 2024 End: December 15, 2024 Josy Tannhof , [employer] SUPERINTENDENT-C Referring Provider Active Start: December 15, 2024 End: December 15, 2024 Team Status: Inactive Member Role/Relationship Status Dates Josy Tannhof , [employer] SUPERINTENDENT-C Primary Care Provider Active Start: December 26, 2024 End: December 26, 2024 Dr. Boone Carvajal DO Attending Provider Active Start: December 26, 2024 End: December 26, 2024 Dr. Boone Carvajal DO Emergency Provider Active Start: December 26, 2024 End: December 26, 2024 Team Status: Inactive Member Role/Relationship Status Dates Josy Tannhof , [employer] SUPERINTENDENT-C Primary Care Provider Active Start: December 30, 2024 End: December 30, 2024 Dr. Mina Blood DO Attending Provider Active Start: December 30, 2024 End: December 30, 2024 Dr. Mina Blood DO Emergency Provider Active Start: December 30, 2024 End: December 30, 2024 Team Status: Inactive Member Role/Relationship Status Dates Josy Elias [employer] SUPERINTENDENT-C Primary Care Provider Active Start: January 02, [...] Active Member Role/Relationship Status Dates Josy Elias [employer] SUPERINTENDENT-C Primary Care Provider Active Start: January 03, [...] Active Member Role/Relationship Status Dates Josy Elias [employer] SUPERINTENDENT-C Primary Care Provider Active Start: January 04, [...] Active Member Role/Relationship Status Dates Josy Elias [employer] SUPERINTENDENT-C Primary Care Provider Active Start: January 05, [...] Provider Active Start: January 10, 2025 Dr. Chirstian Abdi MD Other Provider Active Start: January [...] Active Start : January 18, 2025 Dr. Yairtza Leo DO Other Provider Active Start : [...] Inactive Member Role/Relationship Status Dates Dr. Danny uHtton DO Emergency Provider Activ e Start: January [...] Activ e Start: January 30, 2025 Dr. Jreald Sherwood MD Primary Care Provider Active Start: [...] February 17, 2025 Dr. Niranjan Li , Attending Provider Active Start: February 17, 2025 Dr. Niranjan Li , DO Other Provider Active St art: February 17, 2025 Dr. Anurag Irene MD Referring Provider Active Start: February 17, 2025 Dr. Anurag Irene MD Other Provider Active Sta rt: February 17, 2025 BRITTANY PenaC Primary Care Provider Active Start: February 17, 2025 Team Status: Inactive Member Role/Relationship Status Dates Josy Elias NP-C Primary Care Provider Active Start: February 24, 2025 End: February 25, 2025 Julita Glover Attending Provider Active Sta rt: February 24, 2025 End: February 25, 2025 Josy Elias NP-C Referring Provider Active Start: February 24, 2025 End: February 25, 2025 Josy Elias NP-C Other Provider Active Star t: February 24, 2025 End: February 25, 2025 Team Status: Active Member Role/Relationship Status Dates BRITTANY PenaC Primary Care Provider Active Start: February 25, 2025 Dr. Herberth Carlson MD Emergency Provider Active Start: February 25, 2025 Dr. Kathie Lemos MD Attending Provider Active Start: February 25, 2025 Team Status: Inactive Member Role/Relationship Status Dates Josy Tannhof , [employer] SUPERINTENDENT-C Primary Care Provider Active Start: February 25, 2025 End: February 27, 2025 Dr. Herberth Carlson MD Emergency Provider Active Start: February 25, 2025 End: February 27, 2025 Dr. Kathie Lemos MD Admit Provider Active Star t: February 25, 2025 End: February 27, 2025 Dr. Kathie Lemos MD Other Provider Active Star t: February 25, 2025 End: February 27, 2025 Dr. Rick Carlin DO Attending Provider Active Start: February 25, 2025 End: February 27, 2025 Team Status: Active Member Role/Relationship Status Dates Josy Elias [employer] SUPERINTENDENT-C Primary Care Provider Active Start: February 25, 2025 Dr. Herberth Carlson MD Emergency Provider Active Start: February 25, 2025 Dr. Kathie Lemos MD Admit Provider Active Star t: February 25, 2025 Dr. Kathie Lemos MD Other Provider Active Star t: February 25, 2025 Dr. Niranjan Li DO Attending Provider Active Start: February 25, 2025 Dr. Rick Carlin DO Referring Provider Active Start: February 25, 2025 Team Status: Active Member Role/Relationship Status Dates Josy Elias [employer] SUPERINTENDENT-C Primary Care Provider Active Start: February 26, 2025 Dr. Herberth Carlson MD Emergency Provider Active Start: February 26, 2025 Dr. Kathie Lemos MD Admit Provider Active Star t: February 26, 2025 Dr. Kathie Lemos MD Other Provider Active Star t: February 26, 2025 Dr. Rick Carlin DO Attending Provider Active Start: February 26, 2025 Dr. Rick Carlin DO Other Provider Active S tart: February 26, 2025 Team Status: Active Member Role/Relationship Status Dates Josy Elias [employer] SUPERINTENDENT-C Primary Care Provider Active Start: February 27, 2025 Dr. Herberth Carlson MD Emergency Provider Active Start: February 27, 2025 Dr. Kathie Lemos MD Admit Provider Active Star t: February 27, 2025 Dr. Kathie Lemos MD Other Provider Active Star t: February 27, 2025 Dr. Rick Carlin DO Attending Provider Active Start: February 27, 2025 Dr. Rick Carlin DO Other Provider Active S tart: February 27, 2025 Team Status: Inactive Member Role/Relationship Status Dates Josy Elias , [employer] SUPERINTENDENT-C Primary Care Provider Active Start: March 04, 2025 End: March 04, 2025 MINDY CONTRERAS Attending Provider Active Start: ivonne 2024 End: March 04, 2025 MINDY CONTRERAS Referring Provider Active Start: [facility] 2024 End: March 04, 2025 Team Status: Inactive Member Role/Relationship Status Dates Josy Elias , [employer] SUPERINTENDENT-C Primary Care Provider Active Start: March 10, 2025 End: March 10, 2025 Josy Elias , [employer] SUPERINTENDENT-C Referring Provider Active Start: March 10, 2025 End: March 10, 2025 Dr. Roby Balderas MD Attending Provider Active Start: March 10, 2025 End: March 10, 2025 Team Status: Inactive Member Role/Relationship Status Dates Josy Elias , [employer] SUPERINTENDENT-C Primary Care Provider Active Start: March 11, 2025 End: March 11, 2025 Dr. Alber Dunn MD Attending Provider Active S tart: March 11, 2025 End: March 11, 2025 Dr. Alber Dunn MD Emergency Provider Active S tart: March 11, 2025 End: March 11, 2025 Team Status: Inactive Member Role/Relationship Status Dates Josy Elias , [employer] LO[employer] SUPERINTENDENT-C Primary Care Provider Active Start: March 30, 2025 End: March 30, 2025 Dr. Roby Balderas MD Attending Provider Active Start: March 30, 2025 End: March 30, 2025 Dr. Roby Balderas MD Referring Provider Active Start: March 30, 2025 End: March 30, 2025 Team Status: Active Member Role/Relationship Status Dates Josy Elias , [employer] SUPERINTENDENT-C Primary Care Provider Active Start: March 30, 2025 Dr. Roby Balderas MD Attending Provider Active Start: March 30, 2025 Dr. Roby Balderas MD Referring Provider Active Start: March 30, 2025 Dr. Roby Balderas MD Other Provider Active Start: March 30, 2025 Team Status: Inactive Member Role/Relationship Status Dates Josy Elias , [employer] SUPERINTENDENT-C Primary Care Provider Active Start: April 03, 2025 End: April 03, 2025 Dr. Jose Fox MD Emergency Provider Active Sta rt: April 03, 2025 End: April 03, 2025 Team Status: Active Member Role/Relationship Status Dates Josy Elias [employer] SUPERINTENDENT-C Primary Care Provider Active Start: April 07, 2025 Dr. Rachel Joiner DO Emergency Provider Active Start: April 07, 2025 Dr. Maria Guadalupe Shore MD Attending Provider Active Start: April 07, 2025 Team Status: Active Member Role/Relationship Status Dates Josy Elias [employer] SUPERINTENDENT-C Primary Care Provider Active Start: April 07, 2025 Dr. Rachel Joiner DO Emergency Provider Active Start: April 07, 2025 Dr. Maria Guadalupe Shore MD Admit Provider Active St art: April 07, 2025 Dr. Maria Guadalupe Shore MD Attending Provider Active Start: April 07, 2025 Team Status: Inactive Member Role/Relationship Status Dates Josy Elias [employer] SUPERINTENDENT-C Primary Care Provider Active Start: April 07, [...] Active Member Role/Relationship Status Dates Josy Elias [employer] LO[employer]MA[employer] SUPERINTENDENT-C Primary Care Provider Active Start: April 08, [...] Active Member Role/Relationship Status Dates Josy Elias [employer] LO[employer]MA[employer] SUPERINTENDENT-C Primary Care Provider Active Start: April 09, [...] Sta rt: April 10, 2025 Dr. Rick Carlin DO Other Provider Active S tart: April 10, 2025 (unrecognized sect ion and content) No Status Records FoundNo Status Records FoundNo Status Records FoundNo Status Records Found INFORMATION SOURCE (unrecogn ized section and content) DATE CREATED AUTHOR 10/10/2024 [facility] DATE CREATED AUTHOR AUTHOR'S ORGANIZ ATION 12/13/2024 [facility] DATE CREATED AUTHOR AUTHOR'S ORGANIZ ATION 02/18/2025 [facility] DATE CREATED AUTHOR AUTHOR'S ORGANIZ ATION 04/28/2025 [facility] Source Comments (unrecognize d section and content) In the event this informatio n is protected by the Federal Confidentiality of Alcohol and Drug Abuse Patient Records regulations: The Federal rules restrict any use of the information to criminally investigate or prosecute any alcohol or drug abuse patient.[facility] the event this information is protected by the Federal Confidentiality of Alcohol and Drug Abuse Patient Records regulations: The Federal rules restrict any use of the information to criminally investigate or prosecute any alcohol or drug abuse patient.[facility] the event this information is protected by the Federal Confidentiality of Alcohol and Drug Abuse Patient Records regulations: The Federal rules restrict any use of the information to criminally investigate or prosecute any alcohol or drug abuse patient.[facility] the event this information is protected by the Federal Confidentiality of Alcohol and Drug Abuse Patient Records regulations: The Federal rules restrict any use of the information to criminally investigate or prosecute any alcohol or drug abuse patient.[facility] the event this information is protected by the Federal Confidentiality of Alcohol and Drug Abuse Patient Records regulations: The Federal rules restrict any use of the information to criminally investigate or prosecute any alcohol or drug abuse patient.[facility] Center[facility] the event this information is protected by the Federal Confidentiality of Alcohol and Drug Abuse Patient Records regulations: The Federal rules restrict any use of the information to criminally investigate or prosecute any alcohol or drug abuse patient.[facility] Center[facility] the event this information is protected by the Federal Confidentiality of Alcohol and Drug Abuse Patient Records regulations: The Federal rules restrict any use of the information to criminally investigate or prosecute any alcohol or drug abuse patient.[facility] Center[facility] the event this information is protected by the Federal Confidentiality of Alcohol and Drug Abuse Patient Records regulations: The Federal rules restrict any use of the information to criminally investigate or prosecute any alcohol or drug abuse patient.[facility] Center[facility] the event this information is protected by the Federal Confidentiality of Alcohol and Drug Abuse Patient Records regulations: The Federal rules restrict any use of the information to criminally investigate or prosecute any alcohol or drug abuse patient.[facility] Center[facility] the event this information is protected by the Federal Confidentiality of Alcohol and Drug Abuse Patient Records regulations: The Federal rules restrict any use of the information to criminally investigate or prosecute any alcohol or drug abuse patient.[facility] Center[facility] the event this information is protected by the Federal Confidentiality of Alcohol and Drug Abuse Patient Records regulations: The Federal rules restrict any use of the information to criminally investigate or prosecute any alcohol or drug abuse patient.[facility] FOR RECORDS PERTAINING TO PATIENTS [...] BE BASED ON THE PRIMARY CLINICAL RECORDS. [facility] Outcome Referrals [facility]. provides no warranty or guarantee of the accuracy or completeness of information in this document.
[2025-05-07 00:31] LABS: Magnesium 2.3 mg/dL (1.5-2.2)
[2025-05-07 00:32] LABS: Ammonia 211.0 umol/L (16-60)
[2025-05-07] MEDS: 0.9% Normal Saline (1000mL) 1,000 ML 100 ML IV (01:02)
[2025-05-07] MEDS: 0.9% Saline Lock 10 ML Syringe IV (01:03)
[2025-05-07 07:16] LABS: Hematocrit 33.0 % (40-54); Hemoglobin 10.9 g/dL (13.0-16.5); Immature Granulocytes Count 0.050 X10^3/uL (0.0-0.0); Mean Corp Hgb Conc 33.0 g/dL (32-36); Mean Corpuscular Volume 88.7 fL (80-94); Mean Platelet Vol. 11.6 fl (6.2-12.0); NRBC Flagged by Analyzer 0 % (0-5); Platelet Count 103 K/mm3 (150-450); RBC Distribution Width CV 16.2 % (11.6-14.6); RBC Distribution Width SD 52.3 fl (35.1-43.9); Red Blood Count 3.72 M/mm3 (4.6-6.2); White Blood Count 8.1 K/mm3 (4.4-11.0)
--- NOTE | 2025-05-07 07:38 | PCM.PN.HOSP ---
Reason for Visit Chief Complaint: abdominal cramping, N/V Subjective Subjective Patient is a 59-year-old gentleman with history of cirrhosis of the liver admitted with acute hepatic encephalopathy Objective Data Objective Data Vital Signs: Vital Signs Temp Pulse Resp BP Pulse Ox O2 Del Method 97.7 F L 88 20 H 109/65 99 Room Air 05/07/25 05:22 05/07/25 05:22 05/07/25 05:22 05/07/25 05:22 05/07/25 05:22 05/07/25 07:27 Oxygen Delivery Method Room Air Weight: 87.9 kg Body Mass Index (BMI) 28.6 Intake & Output: Intake and Output for Last 24 Hours 05/05/25 05/06/25 05/07/25 23:59 23:59 23:59 Intake Total 1000 / 1000 1050 / 1050 Output Total 300 / 300 Balance 1000 / 1000 750 / 750 Lab / Micro Data 05/07/25 06:40 05/07/25 06:40 Labs: Laboratory Results - last 24 hr 05/06/25 20:12: WBC 8.4, RBC 3.59 L, Hgb 10.8 L, Hct 31.0 L, MCV 86.4, MCH 30.1, MCHC 34.8, RDW Std Deviation 51.5 H, RDW Coeff of Francis 16.4 H, Plt Count 156, MPV 11.4, Immature Gran % (Auto) 0.400, Neut % (Auto) 60.8, Lymph % (Auto) 19.4, Vermillion % (Auto) 11.2 H, Eos % (Auto) 7.6 H, Baso % (Auto) 0.6, Absolute Neuts (auto) 5.1, Absolute Lymphs (auto) 1.63, Nucleated RBC % 0, Sodium 131 L, Potassium 3.3, Chloride 100, Carbon Dioxide 18.4 L, Anion Gap 13, BUN 29 H, Creatinine 1.82 H, Estim Creat Clear Calc 47.90 L, Est GFR (MDRD) Non-Af 43 L, BUN/Creatinine Ratio 15.7, Glucose 89, Calcium 8.8, Phosphorus 3.6, Magnesium 2.3 H, Total Bilirubin 1.37 H, AST 41 H, ALT 26, Alkaline Phosphatase 122, Ammonia 298.0 H, Total Protein 5.9, Albumin 2.8 L, Globulin 3.1, Albumin/Globulin Ratio 0.9, Amylase 40, Lipase 60 05/06/25 21:04: Urine Color Rocio, Urine Clarity Turbid, Urine pH 7.0, Ur Specific [place] 1.010, Urine Protein 100 H, Urine Glucose (UA) Normal, Urine Ketones Negative, Urine Occult Blood 250 H, Urine Nitrite Negative, Urine Bilirubin Negative, Urine Urobilinogen Normal, Ur Leukocyte Esterase 500 H, Urine RBC 25-50 SEEN, Urine WBC >100 SEEN, Ur Squamous Epith Cells 0-5 SEEN, Ur Transition Epith Cell 0-5 SEEN, Urine Bacteria 1+, Urine Mucus 0 SEEN 05/06/25 23:37: Ammonia 211.0 H 05/07/25 01:39: POC Glucose 122 H 05/07/25 06:26: POC Glucose 216 H 05/07/25 06:40: WBC 8.1, RBC 3.72 L, Hgb 10.9 L, Hct 33.0 L, MCV 88.7, MCH 29.3, MCHC 33.0 D, RDW Std Deviation 52.3 H, RDW Coeff of Francis 16.2 H, Plt Count 103 L, MPV 11.6, Immature Gran % (Auto) 0.600, Neut % (Auto) 76.5 H, Lymph % (Auto) 12.7 L, Vermillion % (Auto) 8.6, Eos % (Auto) 1.4, Baso % (Auto) 0.2, Absolute Neuts (auto) 6.2, Absolute Lymphs (auto) 1.03, Nucleated RBC % 0 Micro: Microbiology 05/07/25 01:35 Mucosa - Nasopharyngeal Respiratory Panel (PCR) - Final Radiography Diagnostic Testing: Radiology Impression Abdomen/Pelvis CT 05/06/25 19:47 IMPRESSION: Diffuse ground-glass densities in the lungs may represent pulmonary edema. Liver cirrhosis. No ascites. Reading Location: [facility] Physical Exam Narrative GENERAL: Patient in no apparent distress HEENT: Atraumatic; normocephalic EYES; Anicteric, Normal Conjunctiva NECK; supple, normal thyroid, RESPIRATORY: Diminished to auscultation CARDIOVASCULAR: Regular S1 S2, GI: soft, normoactive bowel sounds, : No Renal angle tenderness; EXTREMITIES: No edema, no clubbing, MUSCULOSKELETAL: no muscle wasting NEURO: Awake; no lateralizing signs. SKIN: No rash PSYCH; Flat affect Assessment & Plan Assessment/Plan (1) Acute UTI: (2) History of cirrhosis: PLAN: Plan Patient is a 59-year-old gentleman with history of cirrhosis of the liver admitted with acute hepatic encephalopathy 1. Acute hepatic encephalopathy with significant hyperammonemia ? Thought to be preceded by hypovolemia as well as acute cystitis admitted to regular nursing floor patient did receive IV fluid resuscitation, did receive lactulose continued with his rifaximin. Repeat ammonia levels ordered for subsequent eval 2. Acute cystitis ? Patient started on ceftriaxone cultures sent 3. Cirrhosis of the liver ? Secondary to nonalcoholic fatty liver disease patient is on rifaximin, Aldactone as well as furosemide (patient diuretics held given hypovolemia plan is to resume once patient becomes euvolemic). Patient presented with acute hepatic encephalopathy management as discussed above 4. Anemia ? Secondary to chronic disorder monitoring H&H and transfuse if patient becomes symptomatic or hemoglobin falls below 7 5. Thrombocytopenia ? Chronic secondary to patient chronic liver disease will monitor with daily CBC with differential 6. Diabetes mellitus type II -patient's oral hypoglycemics held. Placed on long acting insulin, Accu-Cheks a.c. and at bedtime and covered with sliding scale insulin 7. Acute kidney injury ? Patient diuretics held resuscitated with IV fluid with subsequent daily BMPs ordered 8. History of extensive venous thrombosis - Patient was treated with Lovenox 8. GERD ? Patient is on PPI 9. Obstructive sleep apnea ? Patient is on CPAP at night consistent use encouraged 10. DVT prophylaxis ? SCDs for now Time spent in the patient's overall evaluation,decision-making process, review of diagnostic data, adjustment of management, discussion with other providers, nursing nursing and ancillary staff involved in patient's care documentation, 52 Minutes Charges/Coding Visit Charges Inpatient E&M: 58040 Subs Hosp L3
[2025-05-07 07:48] LABS: Ammonia 69.8 umol/L (16-60)
[2025-05-07 07:56] LABS: AST(SGOT) 44 U/L (<=37); Alanine Aminotransfer ALT/SGPT 27 U/L (<=46); Albumin, Serum 2.8 g/dL (3.5-5.0); Alkaline Phosphatase 122 U/L (40-129); Anion Gap 15 (5-15); BUN 28 mg/dL (4-19); BUN/Creat Ratio 17.3 RATIO (10-20); Calcium,Total 8.4 mg/dL (7.6-11.0); Carbon Dioxide 16.1 mmol/L (21.0-32.0); Chloride 101 mmol/L (98-108); Estimated Creatinine Clearance 55.22 ml/min (50-250); Globulin 3.2 g/dL (2.2-4.2); Glucose 237 mg/dL (70-99); Potassium 3.6 mmol/L (3.3-5.1)
[2025-05-07] MEDS: Insulin Glargine-YFGN 100 UNIT/ML Pen 30 UNIT SC (21:42)
[2025-05-08 03:14] VITALS: BMI 28.7
[2025-05-08 03:38] VITALS: BP 126/67; PULSE 89; RESP 18; TEMP 36.6; O2SAT 97
[2025-05-08] MEDS: CARBOXYMETHYLCELLULOSE SODIUM 1 DRP DROPS OPHTHALMIC (06:33)
[2025-05-08 07:17] LABS: Hematocrit 29.4 % (40-54); Hemoglobin 9.8 g/dL (13.0-16.5); Immature Granulocytes Count 0.040 X10^3/uL (0.0-0.0); Mean Corp Hgb Conc 33.3 g/dL (32-36); Mean Corpuscular Volume 87.8 fL (80-94); Mean Platelet Vol. 11.4 fl (6.2-12.0); NRBC Flagged by Analyzer 0 % (0-5); Platelet Count 118 K/mm3 (150-450); RBC Distribution Width CV 16.2 % (11.6-14.6); RBC Distribution Width SD 51.7 fl (35.1-43.9); Red Blood Count 3.35 M/mm3 (4.6-6.2); White Blood Count 7.4 K/mm3 (4.4-11.0)
--- NOTE | 2025-05-08 07:53 | PCM.PN.HOSP ---
Reason for Visit Chief Complaint: abdominal cramping, N/V Subjective Subjective Patient's level of sensorium markedly improved. Ammonia levels however remain elevated. Urine culture still pending Objective Data Objective Data Vital Signs: Vital Signs Temp Pulse Resp BP Pulse Ox O2 Del Method 98 F 89 18 126/67 H 97 Room Air 05/08/25 03:38 05/08/25 03:38 05/08/25 03:38 05/08/25 03:38 05/08/25 03:38 05/08/25 07:35 Oxygen Delivery Method Room Air Weight: 88.3 kg Body Mass Index (BMI) 28.7 Intake & Output: Intake and Output for Last 24 Hours 05/06/25 05/07/25 05/08/25 23:59 23:59 23:59 Intake Total 1000 / 1000 3340 / 3340 200 / 200 Output Total 700 / 700 300 / 300 Balance 1000 / 1000 2640 / 2640 -100 / -100 Lab / Micro Data 05/08/25 06:36 05/08/25 06:36 Labs: Laboratory Results - last 24 hr 05/07/25 06:40: Sodium 132 L, Potassium 3.6, Chloride 101, Carbon Dioxide 16.1 L, Anion Gap 15, BUN 28 H, Creatinine 1.60 H, Estim Creat Clear Calc 55.22, Est GFR (MDRD) Non-Af 50 L, BUN/Creatinine Ratio 17.3, Glucose 237 H, Calcium 8.4, Total Bilirubin 1.58 H, AST 44 H, ALT 27, Alkaline Phosphatase 122, Total Protein 6.0, Albumin 2.8 L, Globulin 3.2, Albumin/Globulin Ratio 0.9 05/07/25 11:56: POC Glucose 145 H 05/07/25 16:35: POC Glucose 196 H 05/07/25 21:37: POC Glucose 188 H 05/08/25 06:30: POC Glucose 145 H 05/08/25 06:36: WBC 7.4, RBC 3.35 L, Hgb 9.8 L, Hct 29.4 L, MCV 87.8, MCH 29.3, MCHC 33.3, RDW Std Deviation 51.7 H, RDW Coeff of Francis 16.2 H, Plt Count 118 L, MPV 11.4, Immature Gran % (Auto) 0.500, Neut % (Auto) 57.0, Lymph % (Auto) 22.8, [place] % (Auto) 12.2 H, Eos % (Auto) 7.0 H, Baso % (Auto) 0.5, Absolute Neuts (auto) 4.2, Absolute Lymphs (auto) 1.69, Nucleated RBC % 0 Micro: Microbiology 05/07/25 01:35 Mucosa - Nasopharyngeal Respiratory Panel (PCR) - Final Physical Exam Narrative GENERAL: Patient in no apparent distress HEENT: Atraumatic; normocephalic EYES; Anicteric, Normal Conjunctiva NECK; supple, normal thyroid, RESPIRATORY: Diminished to auscultation CARDIOVASCULAR: Regular S1 S2, GI: soft, normoactive bowel sounds, : No Renal angle tenderness; EXTREMITIES: No edema, no clubbing, MUSCULOSKELETAL: no muscle wasting NEURO: Awake; no lateralizing signs. SKIN: No rash PSYCH; Flat affect Assessment & Plan Assessment/Plan (1) Acute UTI: (2) History of cirrhosis: PLAN: Plan Patient is a 59-year-old gentleman with history of cirrhosis of the liver admitted with acute hepatic encephalopathy 1. Acute hepatic encephalopathy with significant hyperammonemia ? Thought to be preceded by hypovolemia as well as acute cystitis admitted to regular nursing floor patient did receive IV fluid resuscitation, did receive lactulose continued with his rifaximin. Repeat ammonia levels ordered for subsequent eval ? 05/08/2025; patient ammonia levels still remain elevated we will continue with current treatment 2. Acute cystitis ? Patient started on ceftriaxone cultures sent ? 05/08/2025; urine culture still pending 3. Cirrhosis of the liver ? Secondary to nonalcoholic fatty liver disease patient is on rifaximin, Aldactone as well as furosemide (patient diuretics held given hypovolemia plan is to resume once patient becomes euvolemic). Patient presented with acute hepatic encephalopathy management as discussed above ? 05/08/2025 resume patient furosemide as well as Aldactone 4. Anemia ? Secondary to chronic disorder monitoring H&H and transfuse if patient becomes symptomatic or hemoglobin falls below 7 5. Thrombocytopenia ? Chronic secondary to patient chronic liver disease will monitor with daily CBC with differential 6. Diabetes mellitus type II -patient's oral hypoglycemics held. Placed on long acting insulin, Accu-Cheks a.c. and at bedtime and covered with sliding scale insulin 7. Acute kidney injury ? Patient diuretics held resuscitated with IV fluid with subsequent daily BMPs ordered ? 05/08/2025; patient kidney function continues to improve creatinine down to 1.22 from admitting level of 1.82 8. History of extensive venous thrombosis - Patient was treated with Lovenox 8. GERD ? Patient is on PPI 9. Obstructive sleep apnea ? Patient is on CPAP at night consistent use encouraged 10. DVT prophylaxis ? SCDs for now 11. Hypokalemia -Corrected per protocol 12. Hypophosphatemia ? Patient started on phosphate supplementation Time spent in the patient's overall evaluation,decision-making process, review of diagnostic data, adjustment of management, discussion with other providers, nursing nursing and ancillary staff involved in patient's care documentation, 50 Minutes Charges/Coding Visit Charges Inpatient E&M: 82009 [facility] L3
[2025-05-08 08:02] LABS: AST(SGOT) 35 U/L (<=37); Alanine Aminotransfer ALT/SGPT 21 U/L (<=46); Albumin, Serum 2.6 g/dL (3.5-5.0); Alkaline Phosphatase 115 U/L (40-129); Anion Gap 10 (5-15); BUN 21 mg/dL (4-19); BUN/Creat Ratio 17.3 RATIO (10-20); Calcium,Total 8.3 mg/dL (7.6-11.0); Carbon Dioxide 18.6 mmol/L (21.0-32.0); Chloride 103 mmol/L (98-108); Estimated Creatinine Clearance 72.57 ml/min (50-250); Globulin 2.7 g/dL (2.2-4.2); Glucose 153 mg/dL (70-99); Magnesium 2.1 mg/dL (1.5-2.2); Potassium 3.3 mmol/L (3.3-5.1)
[2025-05-08 08:50] LABS: Ammonia 88.1 umol/L (16-60)
[2025-05-08 09:00] VITALS: BP 112/77; PULSE 82; RESP 17; TEMP 36.5; O2SAT 98
[2025-05-08] MEDS: Na Biphos/Potassium Phosphate PACKET 1 PACKET PO ×2 (11:47→21:45)
[2025-05-08 15:00] VITALS: BP 121/73; PULSE 77; RESP 16; TEMP 36.8; O2SAT 99
[2025-05-08 21:36] VITALS: BP 118/70; PULSE 73; RESP 16; TEMP 36.3; O2SAT 97
[2025-05-08] MEDS: 0.9% Saline Lock 10 ML Syringe IV ×2 (21:45)
[2025-05-08] MEDS: Insulin Glargine-YFGN 100 UNIT/ML Pen 30 UNIT SC (21:46)
[2025-05-09] MEDS: 0.9% Saline Lock 10 ML Syringe IV ×2 (02:25→13:42)
[2025-05-09 02:57] VITALS: BMI 29.0
[2025-05-09 03:40] VITALS: BP 102/63; PULSE 73; RESP 16; TEMP 36.4; O2SAT 98
[2025-05-09 04:58] LABS: Hematocrit 28.2 % (40-54); Hemoglobin 9.9 g/dL (13.0-16.5); Immature Granulocytes Count 0.040 X10^3/uL (0.0-0.0); Mean Corp Hgb Conc 35.1 g/dL (32-36); Mean Corpuscular Volume 85.7 fL (80-94); Mean Platelet Vol. 11.1 fl (6.2-12.0); NRBC Flagged by Analyzer 0 % (0-5); Platelet Count 109 K/mm3 (150-450); RBC Distribution Width CV 16.5 % (11.6-14.6); RBC Distribution Width SD 51.4 fl (35.1-43.9); Red Blood Count 3.29 M/mm3 (4.6-6.2); White Blood Count 6.9 K/mm3 (4.4-11.0)
[2025-05-09 05:27] LABS: Ammonia 128.0 umol/L (16-60)
[2025-05-09 05:31] LABS: AST(SGOT) 40 U/L (<=37); Alanine Aminotransfer ALT/SGPT 23 U/L (<=46); Albumin, Serum 2.5 g/dL (3.5-5.0); Alkaline Phosphatase 120 U/L (40-129); Anion Gap 9 (5-15); BUN 20 mg/dL (4-19); BUN/Creat Ratio 15.3 RATIO (10-20); Calcium,Total 8.3 mg/dL (7.6-11.0); Carbon Dioxide 20.4 mmol/L (21.0-32.0); Chloride 101 mmol/L (98-108); Estimated Creatinine Clearance 68.92 ml/min (50-250); Globulin 2.8 g/dL (2.2-4.2); Glucose 177 mg/dL (70-99); Potassium 3.4 mmol/L (3.3-5.1)
[2025-05-09 09:40] VITALS: BP 109/59; PULSE 82; RESP 18; TEMP 36.7; O2SAT 96
[2025-05-09] MEDS: Na Biphos/Potassium Phosphate PACKET 1 PACKET PO (10:23)
--- NOTE | 2025-05-09 12:28 | DS.PCM_ITS ---
Providers Date of Admission: 05/06/25 Date of Discharge: 05/09/25 Primary Care Physician: YG Pena Reason For Visit: HEPATIC ENCEPHALOPATHY, UTI, HYPOTENSION, Diagnosis Discharge Diagnosis (1) Acute UTI: Status: Acute Code(s): N39.0 - Urinary tract infection, site not specified (2) History of cirrhosis: Status: Acute Code(s): Z87.19 - Personal history of other diseases of the digestive system Medications at Discharge Home Medications acetaminophen 500 mg tablet 1,000 mg PO Q8 PRN fever or pain 10/28/24 cyclobenzaprine 10 mg tablet 10 mg PO QHS muscle relaxer 01/02/25 pen needle, diabetic 31 gauge x 5/16 (Pen Needle) #1,200 ea 01/31/25 insulin glargine-yfgn 100 unit/mL (3 mL) subcutaneous pen 30 unit subcut QHS blood glucose 03/10/25 insulin lispro 100 unit/mL subcutaneous pen (Humalog KwikPen (U-100) Insulin) 20 unit subcut TIDAC diabetes 04/07/25 metformin 500 mg tablet 500 mg PO QHS blood glucose 04/07/25 oxycodone 5 mg tablet 5 mg PO TID PRN PRN dyspnea 04/07/25 sodium bicarbonate 650 mg tablet 650 mg PO BID supplement 04/07/25 ascorbic acid (vitamin C) 500 mg tablet 500 mg PO BID supplement #60 tabs 04/10/25 carvedilol 3.125 mg tablet 6.25 mg (2 x 3.125 mg) PO BID BP 1 month #60 tabs 04/10/25 ferrous sulfate 325 mg (65 mg iron) tablet 325 mg PO QODAY supplement #30 tabs 04/10/25 furosemide 40 mg tablet 40 mg PO DAILY diuresis 30 days #30 tabs 04/10/25 lactulose 10 gram/15 mL oral solution 10 g (15 mL) PO 4XD liver 30 days #1 mL 04/10/25 spironolactone 100 mg tablet 150 mg (1.5 x 100 mg) PO DAILY BP 30 days #45 tabs 04/10/25 insulin lispro 100 unit/mL subcutaneous half-unit pen subcut blood glucose 04/18/25 aluminum-mag hydroxide-simethicone 400 mg-400 mg-40 mg/5 mL oral susp (Mylanta Maximum Strength) 5 ml PO Q6H PRN indigestion #3,000 mL 05/09/25 prochlorperazine maleate 5 mg tablet (Compazine) 5 mg PO TID PRN nausea and vomiting #90 tabs 05/09/25 Hospital Course Procedures - (CT abdomen and pelvis) Summary of Care Provided Minutes Spent on Discharge: 38 Hospital Course: Mr. Wiggins is a 59-year-old white male who presented to the emergency department [facility] due to several days of abdominal cramping, aching, nausea, and emesis. Patient reported previously had a Miller drain as he was requiring several paracenteses however he is required none recently. He was to return follow-up with his surgeon in which it does not appear that he has previously. He does have a known persistent left-sided staghorn calculus with stents in place and has had issues with recurrent urinary tract infections. It also came to late during his evaluation that he has not been compliant with his home lactulose and had significant hyperammonemia but no mental status changes at the time of presentation negating hepatic encephalopathy as a diagnosis. Vital signs on admission showed temperature 98.6, heart rate 89, blood pressure was 88/58 with a repeat of 94/65 pulse ox was 92 to 98% on room air. CBC on admission showed a chronic stable anemia with normal platelet count. Chemistry panel showed hyponatremia with a sodium of 131, potassium of 3.3 serum bicarb 18.4 BUN of 29 and a serum creatinine of 1.82. Baseline creatinine appears to run between 0.9 and 1.2 as of recently. It was felt that he was dehydrated and is given IV fluids, antiemetics and his UA was somewhat suggestive of infection from his history started on ceftriaxone for antibiotics. He was admitted to medical floor and maintained on ceftriaxone. Again we also did ascertain that he has not been compliant exactly with his home lactulose only taking it twice a day instead of 4 times a day. Urine culture was reviewed and had no growth so antibiotics were discontinued. A CT of the abdomen pelvis was done on admission due to his crampy abdominal pain that was negative for any acute findings that could be causing this. I extensively discussed with him the reason for him to continue taking his lactulose 4 times a day and instructed that he could back off if he was having 2-3 bowel movements a day but the overall goal was to 3 bowel movements a day to reduce the risk of confusion related to hepatic encephalopathy. He did indicate that Mylanta works so we did recommend ongoing Mylanta use after discharge I also did write him some as needed Compazine to help with any nausea vomiting that he could develop. He wanted referrals to transplant centers and they told him I was not able referred him to those but he could follow-up with his primary care physician or call himself. He states he was declined for transplant at [facility] so I did recommend he follow-up at either or [facility] if deemed appropriate. No antibiotics were continued at discharge given the negative cultures. Clinic prescription for Compazine as needed and Mylanta as needed were recommended and the patient was discharged home in stable condition on 05/09/2025. He is to follow-up with his primary care physician within the next 1 to 2 weeks. 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 This has been an ongoing issue. Asks for referral to transplant center as he was denied by [facility]. I did tell him to follow-up with his primary care physician as referral to [facility] or to be evaluated. Const alert, oriented x3, no apparent distress, no limitations and well nourished; Negative for average body habitus or healthy appearing Constitutional Narrative: Mildly disheveled appearing, overweight, middle-aged, white male who appears older than stated age, sitting up in bed, family at bedside, appears comfortable, nontoxic General Appearance: cooperative, comfortable, well kempt and well developed Exam Limitations: no limitations Nutritional Appearance: overweight HEENT normocephalic, head/scalp atraumatic, hearing grossly normal bilaterally and moist oral mucous membranes HEENT Narrative: Dentition is poor, Mallampati is 2-3, no thrush Eyes conjunctivae normal Eyes Narrative: No scleral icterus Neck supple Neck Narrative: Trachea midline Resp normal respiratory effort, no retractions, no use of accessory muscles and clear to auscultation bilaterally Auscultation: Negative for rales, rhonchi or wheezes Cardio regular rate, regular rhythm, S1 normal heart sound, S2 normal heart sound, no murmurs, no rub, no gallops and no clicks GI normal to inspection, nondistended, normoactive bowel sounds and soft to palpation GI Narrative: Mild tenderness bilateral lower quadrants Extremity no clubbing, cyanosis or edema Extremity Narrative: 2+ pedal and radial pulses Skin no jaundice, no petechiae and no mottling Neuro oriented x3, moves all extremities and no focal motor deficits Speech: speech normal Psych Psych Narrative: Affect is slightly flat but eye contact is good and patient interacts appropriately Weight / BMI Weight Weight: 89.1 kg Body Mass Index (BMI) 29.0 ABG / Lab / Microbiology Data 05/09/25 04:51 05/09/25 04:51 Laboratory: Laboratory Results - last 24 hr 05/08/25 16:15: POC Glucose 196 H 05/08/25 21:38: POC Glucose 271 H 05/09/25 04:51: WBC 6.9, RBC 3.29 L, Hgb 9.9 L, Hct 28.2 L, MCV 85.7, MCH 30.1, MCHC 35.1 D, RDW Std Deviation 51.4 H, RDW Coeff of Francis 16.5 H, Plt Count 109 L , MPV 11.1, Immature Gran % (Auto) 0.600, Neut % (Auto) 66.2, Lymph % (Auto) 15.9 L, [place] % (Auto) 11.0 H, Eos % (Auto) 5.9 H, Baso % (Auto) 0.4, Absolute Neuts (auto) 4.6, Absolute Lymphs (auto) 1.10, Nucleated RBC % 0, Sodium 131 L, Potassium 3.4, Chloride 101, Carbon Dioxide 20.4 L, Anion Gap 9, BUN 20 H, C reatinine 1.29 H, Estim Creat Clear Calc 68.92, Est GFR (MDRD) Non-Af 64, BUN/Creatinine Ratio 15.3, Glucose 177 H, Calcium 8.3, Total Bilirubin 1.04, AST 40 H, ALT 23, Alkaline Phosphatase 120, Ammonia 128.0 H, Total Protein 5.3 L, A lbumin 2.5 L, Globulin 2.8, Albumin/Globulin Ratio 0.9 05/09/25 06:11: POC Glucose 173 H 05/09/25 11:52: POC Glucose 183 H Microbiology: Microbiology 05/06/25 21:04 Urine Catheter - Catheter Urine Culture - Final Culture exhibits no growth. 05/07/25 01:35 Mucosa - Nasopharyngeal Respiratory Panel (PCR) - Final D/C Instructions Discharge Activity: Return to Normal Activity DC O2, CPAP, BIPAP Needs Home O2 Discharge instructions: No DC home with Oxygen: No Meaningful Use Info Meaningful Use Meaningful Use Diagnoses (Choose all that apply): None applicable Discharge Plan Admission Admit Date/Time: 05/06/25 23:31 Primary Reason for Your Visit: Abdominal cramping/nausea/vomiting Attending Provider: Yaritza Leo Primary Care Provider: Josy Elias Consulting Providers: Maria Guadalupe Shore; Hill Acuña Instructions Additional Instructions / Restrictions: 1. Your urine culture finalized without any bacterial growth therefore we will not continue antibiotics at discharge 2. Recommend Mylanta [id number] 3. Recommend follow-up at either [facility] or [facility] for evaluation for your liver 4. Please take your lactulose as prescribed 4 times daily. You may back off doses as long as you are having 2-3 bowel movements a day but your goal is 2-3 bowel movements a day to avoid developing confusion related to your liver disease. 5. Given your intermittent nausea and vomiting we also prescribed as needed Compazine Discharge Orders/Prescriptions Prescriptions: New alum-mag hydroxide-simeth [Mylanta Maximum Strength] 400-400-40 mg/5 mL suspension 5 ml PO Q6H PRN (Reason: indigestion) Qty: 3000 0RF prochlorperazine maleate [Compazine] 5 mg tablet 5 mg PO TID PRN (Reason: nausea and vomiting) Qty: 90 0RF Continued cyclobenzaprine 10 mg tablet 10 mg PO QHS (DME) pen needle, diabetic [Pen Needle] 31 gauge x 5/16 needle See Rx Instructions .Route Qty: 1200 0RF Rx Instructions: As directed acetaminophen 500 mg Tablet 1,000 mg PO Q8 PRN (Reason: fever or pain) insulin glargine-yfgn 100 unit/mL (3 mL) Insulin Pen 30 unit subcut QHS metformin 500 mg tablet 500 mg PO QHS sodium bicarbonate 650 mg tablet 650 mg PO BID oxycodone 5 mg tablet 5 mg PO TID PRN PRN (Reason: dyspnea) insulin lispro [Humalog KwikPen Insulin] 100 unit/mL Insulin Pen 20 unit subcut TIDAC furosemide 40 mg Tablet 40 mg PO DAILY 30 Days Qty: 30 2RF ferrous sulfate 325 mg (65 mg iron) tablet 325 mg PO QODAY Qty: 30 2RF ascorbic acid (vitamin C) 500 mg tablet 500 mg PO BID Qty: 60 2RF spironolactone 100 mg tablet 150 mg PO DAILY 30 Days Qty: 45 3RF Rx Instructions: Hold for serum potassium more than 5.0. carvedilol 3.125 mg tablet 6.25 mg PO BID 30 Days Qty: 60 2RF Rx Instructions: must administer with a meal/food lactulose 10 gram/15 mL Solution 10 g PO 4XD 30 Days Qty: 1 0RF Patient Comments: hasn't been taking at home Rx Instructions: Goal to have 2-3 soft bowel movements per day insulin lispro 100 unit/mL insulin pen, half-unit SUBCUT Patient Comments: INJECT 20 UNITS THREE TIMES DAILY FOR CONTROLLING BLOOD SUGARS Referrals / Follow Up: Josy Elias NP-C [Primary Care Provider, [facility]] - Within 1 Week Referral Note: Please call office to be seen later this week or next week Disposition Disposition (needs filled in before D/C Order can be placed): Home, Self Care Charges/Coding Visit Charges Inpatient E&M: 87612 Disch Hosp >30min
--- NOTE | 2025-05-09 13:12 | PHA.DC_ITS ---
Pharmacy [facility] Counseling Pharmacy Service has performed discharge medication reconciliation and counseling for this patient. The patient's discharge medication list was reviewed for discrepancies and discrepancies were resolved. The patient was counseled on the following discharge medications and changes in medications for homegoing were reviewed. The Reason for Use, instructions for use, and potential side effects were reviewed for all new medications. The patient's questions regarding all of their medications were answered. 1. Prochlorperazine 5 mg PO TID PRN nausea/vomiting 2. Mylanta 5 mL PO Q6H PRN indigestion The patient was able to verbally demonstrate an understanding of their discharge medications. Medications at Discharge Home Medications acetaminophen 500 mg tablet 1,000 mg PO Q8 PRN fever or pain 10/28/24 cyclobenzaprine 10 mg tablet 10 mg PO QHS muscle relaxer 01/02/25 pen needle, diabetic 31 gauge x 5/16 (Pen Needle) #1,200 ea 01/31/25 insulin glargine-yfgn 100 unit/mL (3 mL) subcutaneous pen 30 unit subcut QHS blood glucose 03/10/25 insulin lispro 100 unit/mL subcutaneous pen (Humalog KwikPen (U-100) Insulin) 20 unit subcut TIDAC diabetes 04/07/25 metformin 500 mg tablet 500 mg PO QHS blood glucose 04/07/25 oxycodone 5 mg tablet 5 mg PO TID PRN PRN dyspnea 04/07/25 sodium bicarbonate 650 mg tablet 650 mg PO BID supplement 04/07/25 ascorbic acid (vitamin C) 500 mg tablet 500 mg PO BID supplement #60 tabs 04/10/25 carvedilol 3.125 mg tablet 6.25 mg (2 x 3.125 mg) PO BID BP 1 month #60 tabs 04/10/25 ferrous sulfate 325 mg (65 mg iron) tablet 325 mg PO QODAY supplement #30 tabs 04/10/25 furosemide 40 mg tablet 40 mg PO DAILY diuresis 30 days #30 tabs 04/10/25 lactulose 10 gram/15 mL oral solution 10 g (15 mL) PO 4XD liver 30 days #1 mL 04/10/25 spironolactone 100 mg tablet 150 mg (1.5 x 100 mg) PO DAILY BP 30 days #45 tabs 04/10/25 insulin lispro 100 unit/mL subcutaneous half-unit pen subcut blood glucose 04/18/25 aluminum-mag hydroxide-simethicone 400 mg-400 mg-40 mg/5 mL oral susp (Mylanta Maximum Strength) 5 ml PO Q6H PRN indigestion #3,000 mL 05/09/25 prochlorperazine maleate 5 mg tablet (Compazine) 5 mg PO TID PRN nausea and vomiting #90 tabs 05/09/25
[2025-05-09 13:23] VITALS: BP 109/59; PULSE 82; RESP 18; TEMP 36.6; O2SAT 96
--- NOTE | 2025-05-09 13:24 | CASEMGMT ---
Patient has order for discharge. RN CM in to discuss needs at discharge. Patient denies needs or help at discharge. Patient had no further questions or concerns.
== END 2025-05-09 14:02 | disposition home or self-care (01) | DRG 423 ==
LOC: ED 23:26 → PCU 05-07 00:09
PROVIDERS: Internal Medicine; Admitting Provider Family Medicine; Emergency Provider Emergency Medicine; PCP Nurse Practitioner Family; Visit Provider Internal Medicine
DX: E72.20 Disorder of urea cycle metabolism, unspecified (principal); E87.20 Acidosis, unspecified; D63.1 Anemia in chronic kidney disease; M48.54XA Collapsed vertebra, not elsewhere classified, thoracic region, initial encounter for fracture; E83.39 Other disorders of phosphorus metabolism; R62.7 Adult failure to thrive; K74.60 Unspecified cirrhosis of liver; E11.22 Type 2 diabetes mellitus with diabetic chronic kidney disease; I12.9 Hypertensive chronic kidney disease with stage 1 through stage 4 chronic kidney disease, or unspecified chronic kidney disease; D69.59 Other secondary thrombocytopenia; D50.9 Iron deficiency anemia, unspecified; E87.1 Hypo-osmolality and hyponatremia; N17.9 Acute kidney failure, unspecified; E86.0 Dehydration; E87.6 Hypokalemia; N18.2 Chronic kidney disease, stage 2 (mild); E78.5 Hyperlipidemia, unspecified; E86.1 Hypovolemia; G47.33 Obstructive sleep apnea (adult) (pediatric); K21.9 Gastro-esophageal reflux disease without esophagitis; Z79.4 Long term (current) use of insulin; R11.2 Nausea with vomiting, unspecified; I95.89 Other hypotension; T47.3X6A Underdosing of saline and osmotic laxatives, initial encounter; Z91.148 Patient's other noncompliance with medication regimen for other reason; N20.0 Calculus of kidney; Z79.84 Long term (current) use of oral hypoglycemic drugs; G89.29 Other chronic pain; N30.00 Acute cystitis without hematuria; Z87.891 Personal history of nicotine dependence; Z86.718 Personal history of other venous thrombosis and embolism; Z68.29 Body mass index [BMI] 29.0-29.9, adult
CPT/HCPCS: 36415; 74177; 80053; 81001; 82140; 82150; 82962; 83690; 83735; 84100; 85025; 87086; 87633; 94668; 97116; 97161; 97530; 99284; Q9967; A4216; J2405

== ENCOUNTER 2025-05-15 15:43 | Inpatient (IN) | payer MEDICAID, SELFPAY ==
[2025-05-15] VITALS (17 sets, daily range): BP systolic 86–151; BP diastolic 54–87; PULSE 65–92; RESP 13–20; TEMP 35.7–36.4; O2SAT 93–100; BMI 28.8; BMI 28.6
--- NOTE | 2025-05-15 16:25 | EKG12_ITS ---
Test Reason : GENERAL Blood Pressure : */* mmHG Vent. Rate : 71 BPM Atrial Rate : 71 BPM P-R Int : 200 ms QRS Dur : 96 ms QT Int : 414 ms P-R-T Axes : 6 -29 36 degrees QTcB Int : 449 ms Normal sinus rhythm Septal infarct (cited on or before 18-Apr-2025) Abnormal ECG Confirmed by CHEKO HERNANDEZ, KEVIN ([id number]), writer editor FAHAD INGRAM ([id number]) on 05/17/2025 7:48:40 AM Referred By: Confirmed By: KEVIN STILL MD
--- NOTE | 2025-05-15 16:35 | CT_ITS ---
PROCEDURE: BRAIN/HEAD WITHOUT CONTRAST 05/15/2025 REASON FOR EXAM: CHANGE IN MENTAL STATUS, MULTIPLE BRUISES TECHNIQUE: Procedure Code: CTBR Modality: CT Procedure: BRAIN/HEAD WITHOUT CONTRAST Coronal and Sagittal reconstruction series were provided. One or more dose reduction techniques were used (e.g., Automated exposure control, adjustment of the mA and/or kV according to patient size, use of iterative reconstruction technique. RADIATION DOSE SUMMARY: DLP: 914 mGycm COMPARISON: 04/18/2025 FINDINGS: There is no acute infarct, intracranial hemorrhage, or mass effect. There is no hydrocephalus or significant midline shift. There is mild chronic microvascular ischemic changes and mild parenchymal volume loss. No acute, depressed calvarial fractures. No large scalp hematomas. The paranasal sinuses are clear. CT/Brain/Head without Contrast IMPRESSION: No acute intracranial process. Reading Location: [id number]
--- NOTE | 2025-05-15 16:42 | EX.ED.DYSGE1 ---
HPI History of Present Illness Chief Complaint: Alt LOC Detail of Chief Complaint: Patient presents with altered mental status. Limited: stupor Onset/Context/Timing Onset: - (Unknown) Quality: Depressed level of conscious and not responding to verbal stimuli. Location: Generalized Current Severity: Severe Maximum Severity: Severe Worsened by: Unknown Relieved by: Nothing Associated Symptoms Associated Symptoms: Unable to determine Narrative Narrative: Patient is a 59-year-old male. He has history of cirrhosis, hepatic encephalopathy, urinary tract infection, hyponatremia, who was brought to the emergency room for altered mental status. I am unable to obtain any history from patient. He occasionally will attempt to answer question and he mumbles. Prior similar symptoms: Yes [facility] Medical History Diffuse abdominal pain Acute hepatic encephalopathy Hyperammonemia Elevated liver enzymes Cirrhosis of liver with ascites Decompensated cirrhosis History of diabetes mellitus Chronic anemia VRE (vancomycin resistant enterococcus) culture positive Spinal stenosis, lumbar region with neurogenic claudication Umbilical hernia Chronic hyponatremia Weakness Diarrhea Sepsis Acidosis, lactic Acute hypotension Acute UTI Chronic hypotension Obesity (BMI 30-39.9) Chronic back pain ISABEL (acute kidney injury) Hypotension Hyperbilirubinemia Liver cirrhosis secondary to HARRIS (nonalcoholic steatohepatitis) HLD (hyperlipidemia) HTN (hypertension) Thrombocytopenia Chronic anemia Former tobacco use Diabetes mellitus, type 2 ABBY on CPAP Back pain Home Medications ?Medication ?Instructions ?Recorded ?Last Taken ?Type acetaminophen 500 mg tablet 1,000 mg PO Q8 PRN fever or pain 10/28/24 Unknown History cyclobenzaprine 10 mg tablet 10 mg PO QHS muscle relaxer 01/02/25 02/15/25 History pen needle, diabetic 31 gauge x #1,200 ea 01/31/25 Unknown Rx 12/17 (Pen Needle) insulin glargine-yfgn 100 unit/mL 30 unit subcut QHS blood glucose 03/10/25 Unknown History (3 mL) subcutaneous pen insulin lispro 100 unit/mL 20 unit subcut TIDAC diabetes 04/07/25 Unknown History subcutaneous pen (Humalog KwikPen (U-100) Insulin) metformin 500 mg tablet 500 mg PO QHS blood glucose 04/07/25 Unknown History oxycodone 5 mg tablet 5 mg PO TID PRN PRN dyspnea 04/07/25 Unknown History sodium bicarbonate 650 mg tablet 650 mg PO BID supplement 04/07/25 Unknown History ascorbic acid (vitamin C) 500 mg 500 mg PO BID supplement #60 tabs 04/10/25 05/06/25 Rx tablet carvedilol 3.125 mg tablet 6.25 mg (2 x 3.125 mg) PO BID BP 1 04/10/25 05/06/25 Rx month #60 tabs ferrous sulfate 325 mg (65 mg 325 mg PO QODAY supplement #30 tabs 04/10/25 Unknown Rx iron) tablet furosemide 40 mg tablet 40 mg PO DAILY diuresis 30 days 04/10/25 Unknown Rx #30 tabs lactulose 10 gram/15 mL oral 10 g (15 mL) PO 4XD liver 30 days 04/10/25 Unknown Rx solution #1 mL spironolactone 100 mg tablet 150 mg (1.5 x 100 mg) PO DAILY BP 04/10/25 Unknown Rx 30 days #45 tabs insulin lispro 100 unit/mL subcut blood glucose 04/18/25 Unknown History subcutaneous half-unit pen aluminum-mag hydroxide-simethicone 5 ml PO Q6H PRN indigestion #3,000 05/09/25 Unknown Rx 400 mg-400 mg-40 mg/5 mL oral susp mL (Mylanta Maximum Strength) prochlorperazine maleate 5 mg 5 mg PO TID PRN nausea and 05/09/25 Unknown Rx tablet (Compazine) vomiting #90 tabs Allergy/AdvReac Type Severity Reaction Status Date / Time No Known Allergies Allergy Verified 05/15/25 15:46 Family History Mother Heart disease Hypertension CAD (coronary artery disease) Myocardial infarction Father Hypertension Heart disease Heart failure Surgical History History of tonsillectomy and adenoidectomy Social History household members: other details: Lives with his ex /her . Smoking Status: Former smoker how long ago did patient quit smoking: Quit Fall 2023, smoked 1.5 ppd since teen until quit. alcohol intake: never substance use type: does not use additional social history: EX and a friend help with his care. ROS ROS ED Review of Systems ROS Unobtainable: due to mental status EXAM Physical Exam Const Vital Signs: 05/15/25 15:43 05/15/25 16:07 05/15/25 17:11 Temperature 97.2 F L 97.2 F L 97.1 F L Temperature Source Temporal Oral Temporal Pulse Rate 85 76 68 Respiratory Rate 20 H 15 20 H Blood Pressure 86/54 L 102/71 106/70 Blood Pressure Mean 64 81 82 Pulse Ox 96 94 100 Oxygen Delivery Method Room Air Fraction of Inspired Oxygen (FIO2) 05/15/25 18:06 05/15/25 18:55 Temperature Temperature Source Pulse Rate 65 Respiratory Rate 13 Blood Pressure 91/56 L Blood Pressure Mean 67 Pulse Ox 97 Oxygen Delivery Method Fraction of Inspired Oxygen (FIO2) 40 Positive well developed, cachectic and unkempt Constitutional Narrative: Patient's vitals are remarkable hypotension. I was not made aware of this initially at 1543. Repeat was 102/71 at 1607. General Appearance ED: unkempt, well developed, cachectic and NAD; Negative for pallor Nutritional Appearance: cachectic HEENT Reports dry mucous membranes HEENT Narrative: Poor dentition. Bleeding of his gums. Posterior pharynx unremarkable. Mouth ED: Yes dry mucous membranes Mouth: dry mucous membranes Eyes PERRL and EOMs intact bilaterally General Eye ED: Yes pale conjunctiva and scleral icterus Neck no lymphadenopathy and supple Neck Narrative: No grimacing or disc comfort manifested with flexion of his neck. Resp normal respiratory effort and clear to auscultation bilaterally Cardio regular rate, regular rhythm, S1 normal heart sound, S2 normal heart sound and no murmurs GI normal to inspection, nondistended, normoactive bowel sounds, non-tender, non-distended and no masses; Negative for hepatosplenomegaly Extremity Negative for normal to inspection Neuro No oriented x3 Neuro Narrative: Patient opens his eyes to painful stimuli. Patient mumbles to painful stimuli and patient withdraws to painful stimuli. he does not have clonus or Babinski sign noted. Psych Appearance: unkempt Skin General Skin Exam: Negative for elasticity normal or pallor MDM MDM MDM Narrative Medical decision making narrative: With acute altered mental status multiple bruises need to rule out intracranial bleed, metabolic infectious cause. Will obtain CT of the head, appropriate blood work. A BGT was obtained since he has history of diabetes and the nurse informing that his gave him 20 units of insulin even though his blood sugar was not elevated. History & Record Review Additional record(s) reviewed:: Prior ED visit and Prior labs Lab Data Attestation: I reviewed the patient's lab results. Lab results narrative: White count is normal. Mild anemia with normal indices. Platelet count is normal. [facility]etence metabolic panel reveals a acidosis with a CO2 of 17.8. Anion gap is normal. Creatinine slightly elevated 1.32. This is baseline for patient. AST is slightly elevated at 48. Total bili is 1.7. Lipase is normal. Coags are elevated. Labs: Laboratory Results - last 24 hr 05/15/25 05/15/25 05/15/25 15:52 15:56 16:11 WBC 8.7 RBC 4.02 L Hgb 12.2 L Hct 36.2 L MCV 90.0 MCH 30.3 MCHC 33.7 RDW Std Deviation 56.8 H RDW Coeff of Francis 17.2 H Plt Count 162 MPV 11.1 Immature Gran % (Auto) 0.600 Neut % (Auto) 59.4 Lymph % (Auto) 23.2 [place] % (Auto) 8.5 Eos % (Auto) 7.5 H Baso % (Auto) 0.8 Absolute Neuts (auto) 5.2 Absolute Lymphs (auto) 2.02 Nucleated RBC % 0 PT 19.3 H INR 1.6 APTT 39.8 H Sodium 133 Potassium 4.6 Chloride 104 Carbon Dioxide 17.8 L Anion Gap 11 BUN 13 Creatinine 1.32 H Est GFR (MDRD) Non-Af 63 BUN/Creatinine Ratio 9.7 L Glucose 112 H Lactic Acid Calcium 9.1 Total Bilirubin 1.70 H AST 48 H ALT 27 Alkaline Phosphatase 116 Ammonia 143.0 H Total Protein 6.3 Albumin 2.9 L Globulin 3.5 Albumin/Globulin Ratio 0.8 L Lipase 50 Urine Color Urine Clarity Urine pH Ur Specific [place] Urine Protein Urine Glucose (UA) Urine Ketones Urine Occult Blood Urine Nitrite Urine Bilirubin Urine Urobilinogen Ur Leukocyte Esterase Urine RBC Urine WBC Ur Squamous Epith Cells Urine Bacteria Urine Mucus Urine Yeast Urine Opiates Screen U Buprenorphine Qual Ur Oxycodone Screen Urine Methadone Screen Urine Fentanyl Screen Ur Barbiturates Screen Ur Phencyclidine Scrn Ur Amphetamines Screen U Benzodiazepines Scrn Urine Cocaine Screen U Cannabinoids Screen Ethyl Alcohol < 10.1 POC Glucose 100 117 H 05/15/25 05/15/25 17:25 17:35 WBC RBC Hgb Hct MCV MCH MCHC RDW Std Deviation RDW Coeff of Francis Plt Count MPV Immature Gran % (Auto) Neut % (Auto) Lymph % (Auto) [place] % (Auto) Eos % (Auto) Baso % (Auto) Absolute Neuts (auto) Absolute Lymphs (auto) Nucleated RBC % PT INR APTT Sodium Potassium Chloride Carbon Dioxide Anion Gap BUN Creatinine Est GFR (MDRD) Non-Af BUN/Creatinine Ratio Glucose Lactic Acid 2.2 H* Calcium Total Bilirubin AST ALT Alkaline Phosphatase Ammonia Total Protein Albumin Globulin Albumin/Globulin Ratio Lipase Urine Color Yellow Urine Clarity Cloudy Urine pH 7.0 Ur Specific [place] 1.010 Urine Protein 100 H Urine Glucose (UA) Normal Urine Ketones 5 H Urine Occult Blood 250 H Urine Nitrite Negative Urine Bilirubin Negative Urine Urobilinogen Normal Ur Leukocyte Esterase 500 H Urine RBC > 100 SEEN Urine WBC 5-10 SEEN Ur Squamous Epith Cells 0 SEEN Urine Bacteria RARE Urine Mucus 0 SEEN Urine Yeast RARE Urine Opiates Screen NEGATIVE U Buprenorphine Qual NEGATIVE Ur Oxycodone Screen NEGATIVE Urine Methadone Screen NEGATIVE Urine Fentanyl Screen NEGATIVE Ur Barbiturates Screen NEGATIVE Ur Phencyclidine Scrn NEGATIVE Ur Amphetamines Screen NEGATIVE U Benzodiazepines Scrn NEGATIVE Urine Cocaine Screen NEGATIVE U Cannabinoids Screen NEGATIVE Ethyl Alcohol POC Glucose Radiography Diagnostic Testing: Clinical Impression(s) from Imaging Studies Brain CT 05/15/25 16:35 IMPRESSION: No acute intracranial process. Reading Location: [facility] Management Discussion w/another healthcare provider: Hospitalist (Case discussed with Dr. Ash. Admission to ICU critical condition) Treatment and Re-Evaluation :: 1 patient was reassessed at 1836 he was noted to be slumped over unresponsive. He only opened his eyes to noxious stimuli. There was no movement. Concern patient may aspirate. With GCS less than 8 recommendation is intubation to protect his airway. Once OG is placed he will receive lactulose for his hepatic encephalopathy. He will receive a 1 L of normal saline for his hypotension. He has history of metabolic acidosis after reviewing prior records. Comments:: Patient's blood sugar was 66. He was placed on a D10 drip. This is probably due to the fact the gave 20 units of insulin prior to his arrival. Procedures Intubations Intubation Method: orotracheal Intubation Verification: Positive color change Intubation Complications: no complications Other Procedures Procedure(s): 1. Oral tracheal ovation with a 8.0 endotracheal tube using glide scope. Breath sounds noted bilateral. Appropriate color change on capnometer. 2. Placement of OG by position. Critical Care Time Critical Care Time: Yes Critical care time (excluding procedures): 30-74 minutes (41), Including time spent: (History, physical, documentation, review of prior records, independent or potation laboratory results, treatment for hypertension and hepatic encephalopathy), Arranging Admission or Transfer and Performing Direct Patient Care at Bedside (Time did not include procedure time for oral tracheal ovation by RSI and placement of OG by me.) Discharge Plan Triage Chief Complaint: Alt LOC ED Provider: Jose Fox Dx/Rx/DC Orders Clinical Impression: Acute hepatic encephalopathy, Acute hypotension, Acidosis, lactic, Coagulopathy, History of cirrhosis, History of diabetes mellitus, Hypoglycemia Prescriptions: No Action cyclobenzaprine 10 mg tablet 10 mg PO QHS (DME) pen needle, diabetic [Pen Needle] 31 gauge x 5/16 needle See Rx Instructions .Route Qty: 1200 0RF Rx Instructions: As directed acetaminophen 500 mg Tablet 1,000 mg PO Q8 PRN (Reason: fever or pain) insulin glargine-yfgn 100 unit/mL (3 mL) Insulin Pen 30 unit subcut QHS metformin 500 mg tablet 500 mg PO QHS sodium bicarbonate 650 mg tablet 650 mg PO BID oxycodone 5 mg tablet 5 mg PO TID PRN PRN (Reason: dyspnea) insulin lispro [Humalog KwikPen Insulin] 100 unit/mL Insulin Pen 20 unit subcut TIDAC furosemide 40 mg Tablet 40 mg PO DAILY 30 Days Qty: 30 2RF ferrous sulfate 325 mg (65 mg iron) tablet 325 mg PO QODAY Qty: 30 2RF ascorbic acid (vitamin C) 500 mg tablet 500 mg PO BID Qty: 60 2RF spironolactone 100 mg tablet 150 mg PO DAILY 30 Days Qty: 45 3RF Rx Instructions: Hold for serum potassium more than 5.0. carvedilol 3.125 mg tablet 6.25 mg PO BID 30 Days Qty: 60 2RF Rx Instructions: must administer with a meal/food lactulose 10 gram/15 mL Solution 10 g PO 4XD 30 Days Qty: 1 0RF Patient Comments: hasn't been taking at home Rx Instructions: Goal to have 2-3 soft bowel movements per day insulin lispro 100 unit/mL insulin pen, half-unit SUBCUT Patient Comments: INJECT 20 UNITS THREE TIMES DAILY FOR CONTROLLING BLOOD SUGARS alum-mag hydroxide-simeth [Mylanta Maximum Strength] 400-400-40 mg/5 mL suspension 5 ml PO Q6H PRN (Reason: indigestion) Qty: 3000 0RF prochlorperazine maleate [Compazine] 5 mg tablet 5 mg PO TID PRN (Reason: nausea and vomiting) Qty: 90 0RF Primary Care Provider: Josy Elias Referrals: Josy Elias NP-C [Primary Care Provider, Family Practice] Print Language: [place]
[2025-05-15 16:55] LABS: Hematocrit 36.2 % (40-54); Hemoglobin 12.2 g/dL (13.0-16.5); Immature Granulocytes Count 0.050 X10^3/uL (0.0-0.0); Mean Corp Hgb Conc 33.7 g/dL (32-36); Mean Corpuscular Volume 90.0 fL (80-94); Mean Platelet Vol. 11.1 fl (6.2-12.0); NRBC Flagged by Analyzer 0 % (0-5); Platelet Count 162 K/mm3 (150-450); RBC Distribution Width CV 17.2 % (11.6-14.6); RBC Distribution Width SD 56.8 fl (35.1-43.9); Red Blood Count 4.02 M/mm3 (4.6-6.2); White Blood Count 8.7 K/mm3 (4.4-11.0)
[2025-05-15 17:05] LABS: Prothrombin Time (Protime)PT. 19.3 SECONDS (11.7-14.9)
[2025-05-15 17:06] LABS: Partial Thromboplast Time 39.8 Seconds (24.1-36.2)
[2025-05-15 17:33] LABS: Ammonia 143.0 umol/L (16-60)
[2025-05-15 17:34] LABS: AST(SGOT) 48 U/L (<=37); Alanine Aminotransfer ALT/SGPT 27 U/L (<=46); Albumin, Serum 2.9 g/dL (3.5-5.0); Alkaline Phosphatase 116 U/L (40-129); Anion Gap 11 (5-15); BUN 13 mg/dL (4-19); BUN/Creat Ratio 9.7 RATIO (10-20); Calcium,Total 9.1 mg/dL (7.6-11.0); Carbon Dioxide 17.8 mmol/L (21.0-32.0); Chloride 104 mmol/L (98-108); Globulin 3.5 g/dL (2.2-4.2); Glucose 112 mg/dL (70-99); Lipase 50 U/L (13-75); Potassium 4.6 mmol/L (3.3-5.1)
[2025-05-15 17:35] LABS: Alcohol, Blood (Medical)-Serum < 10.1 mg/dL (<=10.0)
[2025-05-15 17:35] LABS: Mucous, Urine 0 SEEN /hpf (<or=2+)
[2025-05-15 17:37] LABS: Color, Urine Yellow (Yellow); Glucose, Dipstick Normal (Normal); Ketone-Dipstick 5 mg/dl (Negative); Leukocyte Esterase-Dipstick 500 /ul (Negative); Nitrite-Dipstick Negative (Negative); Occult Blood-Urine 250 /ul (Negative); Protein-Dipstick 100 mg/dl (Negative); Specific Gravity, Urine 1.010 (1.002-1.030); Urine Bilirubin Dipstick Negative (Negative)
[2025-05-15 17:57] LABS: Barbiturate Urine NEGATIVE (< 200 ng/mL); Benzodiazepine Urine NEGATIVE (< 200 ng/mL); PCP Urine NEGATIVE (< 25 ng/mL); THC Urine NEGATIVE (< 50 ng/mL)
[2025-05-15 18:17] LABS: Red Blood Cells-Urine > 100 SEEN /hpf (0-5); Squamous Epithelial Cells - UA 0 SEEN /hpf (0-5); Yeast-Urine RARE /hpf (None Seen)
[2025-05-15] MEDS: 0.9% Normal Saline (1000mL) 1,000 ML 1000 ML IV (18:48)
--- NOTE | 2025-05-15 18:53 | PCM.HP.STD ---
HPI - General General Date of Admission: 05/15/25 Date of Service: 05/15/25 Chief Complaint: Altered mental status HPI Narrative FRANKLIN ARCHULETA, is a 59 M who presented to [facility] ED on 05/15/2025 with altered mental status. Patient is well-known to our hospital. Medical history significant for HARRIS cirrhosis with episodes of acute hepatic encephalopathy. He most recently was hospitalized here from 05/06-05/09 for abdominal pain with nausea and emesis and concern for hepatic encephalopathy. His ammonia level was high but he had normal mentation at the time of admission so hepatic encephalopathy was ruled out. However patient did note that he has recently been noncompliant with his lactulose because he believed it was causing his symptoms of abdominal pain with nausea and emesis. He noted that taking Mylanta is helpful to relieve the symptoms so it was recommended that he take his lactulose as prescribed as well as Mylanta regularly to control the symptoms. He presented to the ED today with altered mental status. ED physician noted that patient was attempting to answer questions with mumbling but could not answer any questions appropriately or provide any medical history. He was mildly hypotensive to the 90s over 50s but otherwise in normal sinus rhythm, afebrile and stable on room air at rest. CBC and BMP were fairly benign. Lactic acid 2.2. T. bili 1.70, AST 48, ALT 27, alk phos 116. Ammonia level 143 which is slightly worsened from ammonia 128 on 05/09. CT brain was unremarkable. After labs and imaging had been done, patient was reevaluated and it was noted that his mentation worsened and he was essentially unresponsive. He was only opening his eyes to noxious stimuli. Given concern for patient not being able to protect his airway, decision was made to proceed with intubation. He was successfully intubated in the ED. Hospitalist was then contacted for admission. I saw the patient at bedside in the ED. He was sedated and intubated and not following commands. Will be admitted for further management. [facility] Medical History Diffuse abdominal pain Acute hepatic encephalopathy Hyperammonemia Elevated liver enzymes Cirrhosis of liver with ascites Decompensated cirrhosis History of diabetes mellitus Chronic anemia VRE (vancomycin resistant enterococcus) culture positive Spinal stenosis, lumbar region with neurogenic claudication Umbilical hernia Chronic hyponatremia Weakness Diarrhea Sepsis Acidosis, lactic Acute hypotension Acute UTI Chronic hypotension Obesity (BMI 30-39.9) Chronic back pain ISABEL (acute kidney injury) Hypotension Hyperbilirubinemia Liver cirrhosis secondary to HARRIS (nonalcoholic steatohepatitis) HLD (hyperlipidemia) HTN (hypertension) Thrombocytopenia Chronic anemia Former tobacco use Diabetes mellitus, type 2 ABBY on CPAP Back pain Home Medications ?Medication ?Instructions ?Recorded ?Last Taken ?Type acetaminophen 500 mg tablet 1,000 mg PO Q8 PRN fever or pain 10/28/24 Unknown History cyclobenzaprine 10 mg tablet 10 mg PO QHS muscle relaxer 01/02/25 02/15/25 History pen needle, diabetic 31 gauge x #1,200 ea 01/31/25 Unknown Rx 12/17 (Pen Needle) insulin glargine-yfgn 100 unit/mL 30 unit subcut QHS blood glucose 03/10/25 Unknown History (3 mL) subcutaneous pen insulin lispro 100 unit/mL 20 unit subcut TIDAC diabetes 04/07/25 Unknown History subcutaneous pen (Humalog KwikPen (U-100) Insulin) metformin 500 mg tablet 500 mg PO QHS blood glucose 04/07/25 Unknown History oxycodone 5 mg tablet 5 mg PO TID PRN PRN dyspnea 04/07/25 Unknown History sodium bicarbonate 650 mg tablet 650 mg PO BID supplement 04/07/25 Unknown History ascorbic acid (vitamin C) 500 mg 500 mg PO BID supplement #60 tabs 04/10/25 05/06/25 Rx tablet carvedilol 3.125 mg tablet 6.25 mg (2 x 3.125 mg) PO BID BP 1 04/10/25 05/06/25 Rx month #60 tabs ferrous sulfate 325 mg (65 mg 325 mg PO QODAY supplement #30 tabs 04/10/25 Unknown Rx iron) tablet furosemide 40 mg tablet 40 mg PO DAILY diuresis 30 days 04/10/25 Unknown Rx #30 tabs lactulose 10 gram/15 mL oral 10 g (15 mL) PO 4XD liver 30 days 04/10/25 Unknown Rx solution #1 mL spironolactone 100 mg tablet 150 mg (1.5 x 100 mg) PO DAILY BP 04/10/25 Unknown Rx 30 days #45 tabs insulin lispro 100 unit/mL subcut blood glucose 04/18/25 Unknown History subcutaneous half-unit pen aluminum-mag hydroxide-simethicone 5 ml PO Q6H PRN indigestion #3,000 05/09/25 Unknown Rx 400 mg-400 mg-40 mg/5 mL oral susp mL (Mylanta Maximum Strength) prochlorperazine maleate 5 mg 5 mg PO TID PRN nausea and 05/09/25 Unknown Rx tablet (Compazine) vomiting #90 tabs Allergy/AdvReac Type Severity Reaction Status Date / Time No Known Allergies Allergy Verified 05/15/25 15:46 Family History Mother Heart disease Hypertension CAD (coronary artery disease) Myocardial infarction Father Hypertension Heart disease Heart failure Surgical History History of tonsillectomy and adenoidectomy Social History household members: other details: Lives with his ex /her . Smoking Status: Former smoker how long ago did patient quit smoking: Quit Fall 2023, smoked 1.5 ppd since teen until quit. alcohol intake: never substance use type: does not use additional social history: EX and a friend help with his care. ROS Review of Systems ROS Unobtainable: due to endotracheal tube Vital Signs Vital Signs Vital Signs: 05/15/25 15:43 05/15/25 16:07 05/15/25 17:11 Temperature 97.2 F L 97.2 F L 97.1 F L Temperature Source Temporal Oral Temporal Pulse Rate 85 76 68 Respiratory Rate 20 H 15 20 H Blood Pressure 86/54 L 102/71 106/70 Blood Pressure Mean 64 81 82 Pulse Ox 96 94 100 Oxygen Delivery Method Room Air 05/15/25 18:06 Temperature Temperature Source Pulse Rate 65 Respiratory Rate 13 Blood Pressure 91/56 L Blood Pressure Mean 67 Pulse Ox 97 Oxygen Delivery Method Weight Weight: 88.7 kg Body Mass Index (BMI) 28.8 Physical Exam Const Constitutional Narrative: Sedated and intubated, not following commands. HEENT normocephalic, head/scalp atraumatic and nasal mucous membranes and turbinates normal HEENT Narrative: ET tube in place. Eyes conjunctivae normal Neck supple Chest inspection of chest normal Resp Resp Narrative: Breathing comfortably on mechanical ventilation. Mild crackles noted at bilateral lung bases, otherwise good air movement throughout with no wheezing noted. Cardio regular rate, regular rhythm, no murmurs and peripheral pulses 2+ throughout GI GI Narrative: Abdomen soft, nondistended and nontender to palpation. Extremity normal to inspection and no pedal edema Skin no rashes or lesions noted Results Lab / Micro Data 05/15/25 15:56 05/15/25 15:56 Labs: Laboratory Results - last 24 hr 05/15/25 15:52: POC Glucose 100 05/15/25 15:56: WBC 8.7, RBC 4.02 L, Hgb 12.2 L, Hct 36.2 L, MCV 90.0, MCH 30.3, MCHC 33.7, RDW Std Deviation 56.8 H, RDW Coeff of Francis 17.2 H, Plt Count 162, MPV 11.1, Immature Gran % (Auto) 0.600, Neut % (Auto) 59.4, Lymph % (Auto) 23.2, [place] % (Auto) 8.5, Eos % (Auto) 7.5 H, Baso % (Auto) 0.8, Absolute Neuts (auto) 5.2, Absolute Lymphs (auto) 2.02, Nucleated RBC % 0, PT 19.3 H, INR 1.6, APTT 39.8 H, Sodium 133, Potassium 4.6, Chloride 104, Carbon Dioxide 17.8 L, Anion Gap 11, BUN 13, Creatinine 1.32 H, Est GFR (MDRD) Non-Af 63, BUN/Creatinine Ratio 9.7 L, Glucose 112 H, Calcium 9.1, Total Bilirubin 1.70 H, AST 48 H, ALT 27, Alkaline Phosphatase 116, Ammonia 143.0 H, Total Protein 6.3, Albumin 2.9 L, Globulin 3.5, Albumin/Globulin Ratio 0.8 L, Lipase 50, Ethyl Alcohol < 10.1 05/15/25 16:11: POC Glucose 117 H 05/15/25 17:25: Urine Color Yellow, Urine Clarity Cloudy, Urine pH 7.0, Ur Specific [place] 1.010, Urine Protein 100 H, Urine Glucose (UA) Normal, Urine Ketones 5 H, Urine Occult Blood 250 H, Urine Nitrite Negative, Urine Bilirubin Negative, Urine Urobilinogen Normal, Ur Leukocyte Esterase 500 H, Urine RBC > 100 SEEN, Urine WBC 5-10 SEEN, Ur Squamous Epith Cells 0 SEEN, Urine Bacteria RARE, Urine Mucus 0 SEEN, Urine Yeast RARE, Urine Opiates Screen NEGATIVE, U Buprenorphine Qual NEGATIVE, Ur Oxycodone Screen NEGATIVE, Urine Methadone Screen NEGATIVE, Urine Fentanyl Screen NEGATIVE, Ur Barbiturates Screen NEGATIVE, Ur Phencyclidine Scrn NEGATIVE, Ur Amphetamines Screen NEGATIVE, U Benzodiazepines Scrn NEGATIVE, Urine Cocaine Screen NEGATIVE, U Cannabinoids Screen NEGATIVE 05/15/25 17:35: Lactic Acid 2.2 H* Imaging Radiology Impression Brain CT 05/15/25 16:35 IMPRESSION: No acute intracranial process. Reading Location: [id number] Assessment & Plan Assessment/Plan (1) Acute hepatic encephalopathy: PLAN: Plan Patient is a 59-year-old male who presented to [facility] ED on 05/15/2025 with altered mental status. 1. Acute hepatic encephalopathy ? Admit under inpatient status to ICU. History of episodes of hepatic encephalopathy secondary to decompensated cirrhosis as below. On recent admission from 05/06-05/09 patient admitted nonadherence to lactulose therapy due to side effects. Suspect worsened hepatic encephalopathy on this admission is due to nonadherence to home lactulose. Ammonia level 143 on admit. Patient had worsening mentation in the ED and given concern for protecting his airway, decision was made to proceed with intubation. Ventilator management as below. Will give lactulose 10 g 4 times daily for now with goal 2-3 soft bowel movements daily. 2. Acute respiratory failure ? Motor And Chassis Inspector consulted. Patient intubated for airway protection in the ED due to altered mentation as above. Stable on low vent settings. On propofol and fentanyl for sedation. Ventilator management per industrial roof plumber. 3. Decompensated MASLD cirrhosis with portosystemic anastomosis and esophageal varices ? Has been hospitalized here essentially every month since August for issues related to decompensated cirrhosis. On chart review, appears patient was on hospice for a period of time but this was then revoked in April. He also had a PleurX catheter in place for ascites drainage at one time but this has now been removed. In the past he was found to not be a transplant candidate by the [facility] and he did not pursue transplant evaluation at any other hospitals. Patient essentially stable at his baseline on this admission. MELD score of 20. Appears that patient was somewhat dry on admission, was given 1 L of fluids in the ED. Will hold home Lasix and spironolactone for now but would recommend restarting in the next few days. Can consider GI consult as needed. 4. Type 2 diabetes mellitus ? Glucose 112 on admit. Most recent A1c 5.9% on 04/19. Prior to that A1c values were running in the 7-8% range. Suspect patient may be on too high of dosing of insulin given his cirrhosis as above. Will treat with sliding scale insulin every 6 hours while intubated. 5. Chronic anemia and thrombocytopenia liver disease ? Hemoglobin 12.2, platelet count 162 on admit but it appears CBC was hemoconcentrated. Given 1 L of IV fluids on admit as above. Follow-up a.m. CBC. 6. Adult failure to thrive ?PT/OT/case management consulted. As above, patient with frequent hospitalizations this year and apparently was on hospice at one time. Would seem to be an appropriate candidate for palliative care and/or hospice care. Recommend further discussions with patient regarding this as able. DVT prophylaxis: Lovenox CODE STATUS: Full code, verified Expected disposition: TBD Total clinical time spent by myself addressing the patient's medical issues, reviewing all the data, and collaborating with patient's care team: 79 minutes. Charges/Coding Visit Charges Inpatient E&M: 10467 Init Hosp L3
[2025-05-15] MEDS: fentaNYL drip 100 ML 2.5 MCG CONT INF (19:08)
--- NOTE | 2025-05-15 19:12 | ED.RN ---
Intubation time 1841 8 ETT and 24 at lip
--- NOTE | 2025-05-15 19:24 | ED.RN ---
Patients [facility]O [place] notifed patient is intubated and will be in ICU room 2
--- NOTE | 2025-05-15 19:40 | RAD_ITS ---
EXAM: XR Abdomen, 1 View CLINICAL INDICATION: NG PLACEMENT TECHNIQUE: Frontal supine view of the abdomen/pelvis. COMPARISON: XR Abdomen dated 04/18/2025 FINDINGS: LOWER THORAX: Cardiomegaly with mild congestion. GASTROINTESTINAL TRACT: Unremarkable. No dilation. BONES/JOINTS: Unremarkable. No acute fracture. TUBES, LINES AND DEVICES: Enteric tube is in the stomach. RAD/Abdomen Single View IMPRESSION: 1. Cardiomegaly with mild congestion. 2. Enteric tube is in the stomach. Reading Location: [id number]
[2025-05-15 20:42] LABS: Allen Test Positive; Base Excess -3 mmol/L (-2 to +2); FI02 40.0; PEEP 5; PO2 156 mmHG (75-100); RR 15; SITE R Radial; SO2 100 % (95-99)
[2025-05-15] MEDS: Propofol 10MG/Ml 1,000 MG/100 ML Bottle 5.3 MG CONT INF (20:45)
[2025-05-15] MEDS: Chlorhexidine 15 ML PO (21:25)
[2025-05-15] MEDS: CHLORHEXIDINE GLUC 2% CLOTH 1 EACH TOWELETTE TOPICAL (21:25)
[2025-05-15 21:38] LABS: Reflex Lactate? Y
[2025-05-15 22:01] LABS: CPK Total, Creatine Kinase 43 U/L (24-195); Triglycerides 69 mg/dL
--- NOTE | 2025-05-15 23:37 | PCMCONS.TICU ---
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 Pt unable to provide history as he is intubated. He was recently hospitalized here for UTI and elevated ammonia in setting of noncompliance with lactulose dosing at home. He improved with abx and lactulose, and ultimately discharged on 05/09. He was brought back to ED today with severe AMS, was only mumbling occasionally and could not answer questions. His apparently gave him 20 units of insulin at home prior to arrival despite his sugar not being elevated. Ammonia up to 143 now, glucose down to 60. CT head negative for acute pathology. He had worsening obtundation and so ultimately intubated for airway protection. ROS: Unable to obtain as pt intubated [facility] Medical History Diffuse abdominal pain Acute hepatic encephalopathy Hyperammonemia Elevated liver enzymes Cirrhosis of liver with ascites Decompensated cirrhosis History of diabetes mellitus Chronic anemia VRE (vancomycin resistant enterococcus) culture positive Spinal stenosis, lumbar region with neurogenic claudication Umbilical hernia Chronic hyponatremia Weakness Diarrhea Sepsis Acidosis, lactic Acute hypotension Acute UTI Chronic hypotension Obesity (BMI 30-39.9) Chronic back pain ISABEL (acute kidney injury) Hypotension Hyperbilirubinemia Liver cirrhosis secondary to HARRIS (nonalcoholic steatohepatitis) HLD (hyperlipidemia) HTN (hypertension) Thrombocytopenia Chronic anemia Former tobacco use Diabetes mellitus, type 2 ABBY on CPAP Back pain Home Medications ?Medication ?Instructions ?Recorded ?Last Taken ?Type acetaminophen 500 mg tablet 1,000 mg PO Q8 PRN fever or pain 10/28/24 Unknown History cyclobenzaprine 10 mg tablet 10 mg PO QHS muscle relaxer 01/02/25 02/15/25 History pen needle, diabetic 31 gauge x #1,200 ea 01/31/25 Unknown Rx 12/17 (Pen Needle) insulin glargine-yfgn 100 unit/mL 30 unit subcut QHS blood glucose 03/10/25 Unknown History (3 mL) subcutaneous pen insulin lispro 100 unit/mL 20 unit subcut TIDAC diabetes 04/07/25 Unknown History subcutaneous pen (Humalog KwikPen (U-100) Insulin) metformin 500 mg tablet 500 mg PO QHS blood glucose 04/07/25 Unknown History oxycodone 5 mg tablet 5 mg PO TID PRN PRN dyspnea 04/07/25 Unknown History sodium bicarbonate 650 mg tablet 650 mg PO BID supplement 04/07/25 Unknown History ascorbic acid (vitamin C) 500 mg 500 mg PO BID supplement #60 tabs 04/10/25 05/06/25 Rx tablet carvedilol 3.125 mg tablet 6.25 mg (2 x 3.125 mg) PO BID BP 1 04/10/25 05/06/25 Rx month #60 tabs ferrous sulfate 325 mg (65 mg 325 mg PO QODAY supplement #30 tabs 04/10/25 Unknown Rx iron) tablet furosemide 40 mg tablet 40 mg PO DAILY diuresis 30 days 04/10/25 Unknown Rx #30 tabs lactulose 10 gram/15 mL oral 10 g (15 mL) PO 4XD liver 30 days 04/10/25 Unknown Rx solution #1 mL spironolactone 100 mg tablet 150 mg (1.5 x 100 mg) PO DAILY BP 04/10/25 Unknown Rx 30 days #45 tabs insulin lispro 100 unit/mL subcut blood glucose 04/18/25 Unknown History subcutaneous half-unit pen aluminum-mag hydroxide-simethicone 5 ml PO Q6H PRN indigestion #3,000 05/09/25 Unknown Rx 400 mg-400 mg-40 mg/5 mL oral susp mL (Mylanta Maximum Strength) prochlorperazine maleate 5 mg 5 mg PO TID PRN nausea and 05/09/25 Unknown Rx tablet (Compazine) vomiting #90 tabs Allergy/AdvReac Type Severity Reaction Status Date / Time No Known Allergies Allergy Verified 05/15/25 15:46 Family History Mother Heart disease Hypertension CAD (coronary artery disease) Myocardial infarction Father Hypertension Heart disease Heart failure Surgical History History of tonsillectomy and adenoidectomy Social History household members: other details: Lives with his ex /her . Smoking Status: Former smoker how long ago did patient quit smoking: Quit Fall 2023, smoked 1.5 ppd since teen until quit. alcohol intake: never substance use type: does not use additional social history: EX and a friend help with his care. ROS Review of Systems ROS Unobtainable: due to endotracheal tube and due to mental status Objective Data Objective Data Vital Signs: Vital Signs Last response Temperature 35.7 C L 05/15/25 21:30 Temperature Source Core 05/15/25 21:30 Pulse Rate 82 05/15/25 21:30 Pulse Strength Normal (2+) 05/15/25 22:00 Respiratory Rate 16 05/15/25 21:30 Respiratory Effort Mechanically Ventilated 05/15/25 23:31 Respiratory Depth Normal 05/15/25 23:31 Respiratory Pattern Normal 05/15/25 23:31 Blood Pressure 105/70 05/15/25 21:30 Blood Pressure Mean 81 05/15/25 21:30 Blood Pressure Source Monitor 05/15/25 21:30 Blood Pressure Position Semi-Fowlers 05/15/25 21:30 Blood Pressure Location Right Arm 05/15/25 21:30 Pulse Ox 98 05/15/25 21:30 Oxygen Delivery Method Mechanical Ventilator 05/15/25 23:31 Fraction of Inspired Oxygen (FIO2) 30 05/15/25 23:31 I&O: I&O Last 24 Hours 05/14/25 05/15/25 05/15/25 23:59 11:59 23:59 Intake Total 1395.14 / 1395.14 Balance 1395.14 / 1395.14 I&O: Total Stay 05/15/25 15:43 thru 05/15/25 23:08 Intake Total 1395.14 Balance 1395.14 Current Meds Ordered / Administered: Current meds ordered / Administered Generic Name Dose Route Start Last Admin Trade Name Freq PRN Reason Stop Dose Admin Acetaminophen 650 mg 05/15/25 20:26 Acetaminophen 325 Mg Tablet PO Q6H PRN PRN Pain 1-10 Or Fever>100.7 Acetaminophen 650 mg 05/15/25 20:26 Acetaminophen 650 Mg/20 Ml Udc NG Q6H PRN PRN Pain 1-10 or Fever Chlorhexidine Gluconate 15 ml 05/15/25 22:00 05/15/25 21:25 Chlorhexidine 15 Ml PO 15 ml BID KRYSTIN Administration Chlorhexidine Gluconate 1 each 05/16/25 10:00 05/15/25 21:25 Chlorhexidine Gluc 2% Cloth 1 Each [place] TOPICAL 1 each DAILY KRYSTIN Administration Enoxaparin Sodium 40 mg 05/16/25 10:00 Enoxaparin 40 Mg/0.4 Ml Syringe SC DAILY KRYSTIN Fentanyl 100 mls @ 2.5 mls/hr 05/15/25 18:40 05/15/25 23:08 CONT INF 75 mcg/hr UD KRYSTIN 7.5 mls/hr Protocol Titration 25 MCG/HR Propofol 1,000 mg in 100 mls @ 5.322 mls/hr 05/15/25 20:26 05/15/25 23:00 Diprivan CONT INF 30 mcg/kg/min .Q12H KRYSTIN 16 mls/hr Protocol Titration 10 MCG/KG/MIN Sodium Chloride 250 mls @ 15 mls/hr 05/15/25 21:01 IV .[id number] PRN Saline Flush Sodium Chloride 250 mls @ 15 mls/hr 05/15/25 21:01 IV .[id number] PRN Additional IVPB Infusion Lactulose 10 gm 05/15/25 20:26 05/15/25 21:20 Lactulose 20 Gm/30 Ml Udc NG 10 gm 4X/DAY KRYSTIN Administration Ondansetron HCl 4 mg 05/15/25 20:26 Ondansetron 4 Mg/2 Ml Vial IV Q8H PRN PRN NAUSEA/VOMITING Sodium Chloride 10 - 40 ml 05/15/25 21:01 0.9% Saline Lock 10 Ml Syringe IV UD PRN SALINE FLUSH Lab / Micro Data 05/15/25 15:56 05/15/25 15:56 Labs: Laboratory Results - last 24 hr 05/15/25 15:52: POC Glucose 100 05/15/25 15:56: WBC 8.7, RBC 4.02 L, Hgb 12.2 L, Hct 36.2 L, MCV 90.0, MCH 30.3, MCHC 33.7, RDW Std Deviation 56.8 H, RDW Coeff of Francis 17.2 H, Plt Count 162, MPV 11.1, Immature Gran % (Auto) 0.600, Neut % (Auto) 59.4, Lymph % (Auto) 23.2, [place] % (Auto) 8.5, Eos % (Auto) 7.5 H, Baso % (Auto) 0.8, Absolute Neuts (auto) 5.2, Absolute Lymphs (auto) 2.02, Nucleated RBC % 0, PT 19.3 H, INR 1.6, APTT 39.8 H, Sodium 133, Potassium 4.6, Chloride 104, Carbon Dioxide 17.8 L, Anion Gap 11, BUN 13, Creatinine 1.32 H, Est GFR (MDRD) Non-Af 63, BUN/Creatinine Ratio 9.7 L, Glucose 112 H, Calcium 9.1, Total Bilirubin 1.70 H, AST 48 H, ALT 27, Alkaline Phosphatase 116, Ammonia 143.0 H, Total Creatine Kinase 43, Total Protein 6.3, Albumin 2.9 L, Globulin 3.5, Albumin/Globulin Ratio 0.8 L, Triglycerides 69, Lipase 50, Ethyl Alcohol < 10.1 05/15/25 16:11: POC Glucose 117 H 05/15/25 17:25: Urine Color Yellow, Urine Clarity Cloudy, Urine pH 7.0, Ur Specific [place] 1.010, Urine Protein 100 H, Urine Glucose (UA) Normal, Urine Ketones 5 H, Urine Occult Blood 250 H, Urine Nitrite Negative, Urine Bilirubin Negative, Urine Urobilinogen Normal, Ur Leukocyte Esterase 500 H, Urine RBC > 100 SEEN, Urine WBC 5-10 SEEN, Ur Squamous Epith Cells 0 SEEN, Urine Bacteria RARE, Urine Mucus 0 SEEN, Urine Yeast RARE, Urine Opiates Screen NEGATIVE, U Buprenorphine Qual NEGATIVE, Ur Oxycodone Screen NEGATIVE, Urine Methadone Screen NEGATIVE, Urine Fentanyl Screen NEGATIVE, Ur Barbiturates Screen NEGATIVE, Ur Phencyclidine Scrn NEGATIVE, Ur Amphetamines Screen NEGATIVE, U Benzodiazepines Scrn NEGATIVE, Urine Cocaine Screen NEGATIVE, U Cannabinoids Screen NEGATIVE 05/15/25 17:35: Lactic Acid 2.2 H* 05/15/25 18:37: POC Glucose 60 L 05/15/25 20:44: POC Glucose 126 H 05/15/25 22:15: Lactic Acid 1.9 ABG Data ABG results: ABG 05/15/25 20:36 Specimen Type ART Sample Site R Radial pH 7.46 H Bicarbonate Actual 20.7 L Total CO2 22 Base Excess -3 L O2 Saturation 100 H O2 % 40.0 ABG pCO2 29.1 L ABG pO2 156 H Ulcies Test Positive Respiration Rate 15 O2 Delivery Device Adult Vent Vent Mode AC Tidal Volume 500.0 POC PEEP 5 Imaging Radiology Impression Brain CT 05/15/25 16:35 IMPRESSION: No acute intracranial process. Reading Location: [facility] X-Ray 05/15/25 19:40 IMPRESSION: 1. Cardiomegaly with mild congestion. 2. Enteric tube is in the stomach. Reading Location: [id number] Assessment and Plan . Assessment and plan: Physical Exam: Gen - NAD, chronically ill-appearing, intubated HEENT - MMM. ETT in place Resp - CTAB. Mechanically ventilated CV - RRR. No m/g/r Abd - Soft, NT, ND Ext - No c/c/e. Skin - No rashes? Neuro - Sedated, intubated. Can intermittently arouse to stimulation/open eyes I have reviewed the pertinent vital sign, laboratory, and imaging data. ASSESSMENT: # Acute encephalopathy - suspect recurrent hepatic encephalopathy. 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 Follow ABG/CXR -Cont aggressive lactulose, no BM thus far. Follow ammonia -Possible SAT/SBT in AM if improving mentation -Monitor for recurrent hypoglycemia, may need dextrose infusion -Monitor Cr, UOP -Consider paracentesis if sufficient pocket and not improving -No clear signs of infection but low threshold for empiric abx. He appears to have some chronic leukocyte esterase elevation/pyuria on UA. Just received empiric abx course on prior admit last week as well FEN/GI: NPO Proph DVT/GI: Lovenox, pepcid Critical Care Time: 60 mins The entirety of this encounter was done via telemedicine using both audio and video. Consent was unable to be obtained for the telemedicine encounter due to the patient's mental status.
[2025-05-16] VITALS (33 sets, daily range): BP systolic 91–112; BP diastolic 62–77; PULSE 81–91; RESP 12–16; TEMP 36.3–36.8; O2SAT 93–99; BMI 28.4
[2025-05-16] MEDS: 0.9% Saline Lock 10 ML Syringe IV ×3 (01:48→19:44)
[2025-05-16] MEDS: Propofol 10MG/Ml 1,000 MG/100 ML Bottle 16 MG CONT INF (01:49)
[2025-05-16] MEDS: 0.9% Normal Saline (250mL Bag) 250 ML 15 ML IV (04:45)
[2025-05-16] MEDS: Pantoprazole Sodium 40 MG in 0.9% Normal Saline (100mL MB+) 100 ML 300 MG IV ×3 (04:46→22:04)
--- NOTE | 2025-05-16 05:10 | RAD_ITS ---
PROCEDURE: CHEST 1 VIEW (PORTABLE) 05/16/2025 REASON FOR EXAM: RESP FAILURE, INTUBATED TECHNIQUE: Frontal view of the chest. COMPARISON: April 18, 2025 FINDINGS: There is an ET tube in position with its tip 1.8 cm above the level of the otilio. An enteric tube is noted with its tip below the field of view of this exam. Heart size is upper normal. Central vascularity appears normal. There is no focal infiltrate or consolidation. There is no pneumothorax or effusion. There is no acute bony abnormality. Aortic calcifications are visible. RAD/Chest 1 View (Portable) IMPRESSION: Tubes and lines in position. Reading Location: [facility]
[2025-05-16 05:45] LABS: Ammonia 126.0 umol/L (16-60)
[2025-05-16 05:51] LABS: Allen Test Positive; Base Excess -4 mmol/L (-2 to +2); FI02 30.0; PEEP 5; PO2 174 mmHG (75-100); RR 12; SITE R Radial; SO2 100 % (95-99)
[2025-05-16 05:52] LABS: Magnesium 1.8 mg/dL (1.5-2.2); Procalcitonin 0.12 ng/mL (<=0.10)
[2025-05-16 06:50] LABS: Hematocrit 35.1 % (40-54); Hemoglobin 11.6 g/dL (13.0-16.5); Mean Corp Hgb Conc 33.0 g/dL (32-36); Mean Corpuscular Volume 89.1 fL (80-94); Mean Platelet Vol. 11.5 fl (6.2-12.0); Platelet Count 164 K/mm3 (150-450); RBC Distribution Width CV 17.2 % (11.6-14.6); RBC Distribution Width SD 55.6 fl (35.1-43.9); Red Blood Count 3.94 M/mm3 (4.6-6.2); White Blood Count 8.4 K/mm3 (4.4-11.0)
[2025-05-16 06:53] LABS: AST(SGOT) 44 U/L (<=37); Alanine Aminotransfer ALT/SGPT 28 U/L (<=46); Albumin, Serum 2.6 g/dL (3.5-5.0); Alkaline Phosphatase 110 U/L (40-129); Anion Gap 10 (5-15); BUN 16 mg/dL (4-19); BUN/Creat Ratio 12.5 RATIO (10-20); Calcium,Total 9.0 mg/dL (7.6-11.0); Carbon Dioxide 17.4 mmol/L (21.0-32.0); Chloride 105 mmol/L (98-108); Estimated Creatinine Clearance 68.08 ml/min (50-250); Globulin 3.3 g/dL (2.2-4.2); Glucose 139 mg/dL (70-99); Potassium 4.9 mmol/L (3.3-5.1)
--- NOTE | 2025-05-16 07:28 | PCM.PN.INT ---
Assessment & Plan Assessment/Plan (1) Acute hepatic encephalopathy: PLAN: Plan RECOMMENDATIONS: 1. Continue assist-control mode of mechanical ventilation. Wean FiO2 and PEEP as tolerated. 2. Continue lactulose as ordered. Start rifaximin. 3. Continue PPI therapy. 4. Continue to monitor blood sugars to maintain euglycemia. 5. Minimize sedation as tolerated. Goal to maintain a RASS of -1 to 1. 6. Recommend goals of care discussion with the patient's family, given recurrent nature of hospitalizations. 7. Continue PPI therapy. 8. Monitor ammonia level. IMPRESSIONS: 1. Acute hypoxemic respiratory failure The patient was intubated primarily for airway protection in the setting of altered mental status. The patient will be maintained on assist-control mode of mechanical ventilation, with a goal to wean FiO2 and PEEP to maintain saturations at or above 90%. Propofol and fentanyl will be continued for sedation. Once the patient's encephalopathy has improved, we will proceed with spontaneous awakening and breathing trials. 2. Acute encephalopathy Most likely multifactorial with hepatic encephalopathy in the setting of decompensated cirrhosis contributing along with hypoglycemia. Will plan to continue aggressive medical management of the patient's hepatic encephalopathy with lactulose and continue to monitor ammonia level for improvement. Blood sugars will be monitored accordingly. 3. History of Boyer cirrhosis with frequent hospitalizations The patient has a documented history of medical noncompliance leading to decompensation in his cirrhosis and subsequent hepatic encephalopathy and need for hospitalization. The patient is apparently been declined for transplantation at [facility] in the past. In order to be referred to an alternative transplant center, the patient would need to be referred by his PCP. However, the patient has never been able to stay out of the hospital long enough to accomplish this goal. Accordingly, I would recommend a palliative care medicine evaluated to assist with goals of care. 4. History of anemia/thrombocytopenia/diabetes mellitus/GERD/obstructive sleep apnea Complicates care, management, recovery and prognosis. Continue PPI therapy as ordered. Hold on tube feeding today. Remainder of supportive care as noted above. TIME: 36 minutes of critical care time, independent of procedures, was spent addressing the patient's acute hypoxemic respiratory failure, acute encephalopathy, decompensated Boyer cirrhosis, review of all data and collaboration with the care team. Subjective Subjective The patient was seen and examined at the bedside this morning. Events from the last 24 hours have been reviewed. The patient is currently afebrile, hemodynamically stable and maintaining appropriate oxygen saturations on assist-control mode of mechanical ventilation with an FiO2 requirement of 30% and PEEP of 5. The patient is documented to be overall net +1.4 L for the hospitalization. He is currently sedated on fentanyl and propofol. The patient is receiving lactulose. White blood cell count is normal. Hemoglobin and platelet count are stable. ABG this morning was notable for a pH of 7.45 with a pCO2 of 28 and pO2 of 174. Creatinine is stable at 1.27. Ammonia level was noted to be 126. Objective Data Objective Data The patient's most recent lab work, culture data and imaging studies have all been personally reviewed. Sputum culture is pending. Vital Signs: Vital Signs Temp Pulse Resp BP Pulse Ox O2 Del Method FiO2 97.8 F 82 12 101/70 99 Mechanical Ventilator 30 05/16/25 07:00 05/16/25 07:00 05/16/25 07:00 05/16/25 07:00 05/16/25 07:00 05/16/25 07:00 05/16/25 07:00 Oxygen Delivery Method Mechanical Ventilator Weight: 192 lb 3.889 oz Body Mass Index (BMI) 28.4 Intake & Output: Intake and Output for Last 24 Hours 05/14/25 05/15/25 05/16/25 23:59 23:59 23:59 Intake Total 1405.90 / 1417.65 270.62 / 270.62 Output Total 300 / 300 Balance 1105.90 / 1117.65 270.62 / 270.62 Lab / Micro Data Attestation: I reviewed the patient's lab results. 05/16/25 05:15 05/16/25 05:15 Labs: Laboratory Results - last 24 hr 05/15/25 15:52: POC Glucose 100 05/15/25 15:56: WBC 8.7, RBC 4.02 L, Hgb 12.2 L, Hct 36.2 L, MCV 90.0, MCH 30.3, MCHC 33.7, RDW Std Deviation 56.8 H, RDW Coeff of Francis 17.2 H, Plt Count 162, MPV 11.1, Immature Gran % (Auto) 0.600, Neut % (Auto) 59.4, Lymph % (Auto) 23.2, [place] % (Auto) 8.5, Eos % (Auto) 7.5 H, Baso % (Auto) 0.8, Absolute Neuts (auto) 5.2, Absolute Lymphs (auto) 2.02, Nucleated RBC % 0, PT 19.3 H, INR 1.6, APTT 39.8 H, Sodium 133, Potassium 4.6, Chloride 104, Carbon Dioxide 17.8 L, Anion Gap 11, BUN 13, Creatinine 1.32 H, Est GFR (MDRD) Non-Af 63, BUN/Creatinine Ratio 9.7 L, Glucose 112 H, Calcium 9.1, Total Bilirubin 1.70 H, AST 48 H, ALT 27, Alkaline Phosphatase 116, Ammonia 143.0 H, Total Creatine Kinase 43, Total Protein 6.3, Albumin 2.9 L, Globulin 3.5, Albumin/Globulin Ratio 0.8 L, Triglycerides 69, Lipase 50, Ethyl Alcohol < 10.1 05/15/25 16:11: POC Glucose 117 H 05/15/25 17:25: Urine Color Yellow, Urine Clarity Cloudy, Urine pH 7.0, Ur Specific [place] 1.010, Urine Protein 100 H, Urine Glucose (UA) Normal, Urine Ketones 5 H, Urine Occult Blood 250 H, Urine Nitrite Negative, Urine Bilirubin Negative, Urine Urobilinogen Normal, Ur Leukocyte Esterase 500 H, Urine RBC > 100 SEEN, Urine WBC 5-10 SEEN, Ur Squamous Epith Cells 0 SEEN, Urine Bacteria RARE, Urine Mucus 0 SEEN, Urine Yeast RARE, Urine Opiates Screen NEGATIVE, U Buprenorphine Qual NEGATIVE, Ur Oxycodone Screen NEGATIVE, Urine Methadone Screen NEGATIVE, Urine Fentanyl Screen NEGATIVE, Ur Barbiturates Screen NEGATIVE, Ur Phencyclidine Scrn NEGATIVE, Ur Amphetamines Screen NEGATIVE, U Benzodiazepines Scrn NEGATIVE, Urine Cocaine Screen NEGATIVE, U Cannabinoids Screen NEGATIVE 05/15/25 17:35: Lactic Acid 2.2 H* 05/15/25 18:37: POC Glucose 60 L 05/15/25 20:44: POC Glucose 126 H 05/15/25 22:15: Lactic Acid 1.9 05/16/25 00:05: POC Glucose 142 H 05/16/25 05:15: WBC 8.4, RBC 3.94 L, Hgb 11.6 L, Hct 35.1 L, MCV 89.1, MCH 29.4, MCHC 33.0, RDW Std Deviation 55.6 H, RDW Coeff of Francis 17.2 H, Plt Count 164, MPV 11.5, Sodium 132 L, Potassium 4.9, Chloride 105, Carbon Dioxide 17.4 L, Anion Gap 10, BUN 16, Creatinine 1.27 H, Estim Creat Clear Calc 68.08, Est GFR (MDRD) Non-Af 65, BUN/Creatinine Ratio 12.5, Glucose 139 H, Calcium 9.0, Phosphorus 4.6 H, Magnesium 1.8, Total Bilirubin 1.88 H, AST 44 H, ALT 28, Alkaline Phosphatase 110, Ammonia 126.0 H, Total Protein 6.0, Albumin 2.6 L, Globulin 3.3, Albumin/Globulin Ratio 0.8 L, Procalcitonin 0.12 H ABG Data ABG results: ABG 05/15/25 05/16/25 20:36 05:48 Specimen Type ART ART Sample Site R Radial R Radial pH 7.46 H 7.45 Bicarbonate Actual 20.7 L 20.1 L Total CO2 22 21 Base Excess -3 L -4 L O2 Saturation 100 H 100 H O2 % 40.0 30.0 ABG pCO2 29.1 L 28.7 L ABG pO2 156 H 174 H Ulices Test Positive Positive Respiration Rate 15 12 O2 Delivery Device Adult Vent Adult Vent Vent Mode AC AC Tidal Volume 500.0 500.0 POC PEEP 5 5 Radiography Diagnostic Testing: Radiology Impression Brain CT 05/15/25 16:35 IMPRESSION: No acute intracranial process. Reading Location: [facility] X-Ray 05/15/25 19:40 IMPRESSION: 1. Cardiomegaly with mild congestion. 2. Enteric tube is in the stomach. Reading Location: [id number] Chest X-Ray 05/16/25 05:10 IMPRESSION: Tubes and lines in position. [facility] Const Constitutional Narrative: Intubated, sedated and mechanically ventilated. General Appearance: ill appearing Positive for chronically HEENT normocephalic and head/scalp atraumatic Mouth: endotracheal tube in place and OG tube in place Eyes EOMs intact bilaterally and conjunctivae normal Neck supple General: trachea midline Resp normal respiratory effort Auscultation: Negative for rales, rhonchi or wheezes Cardio regular rate and regular rhythm GI soft to palpation and non-tender Extremity no clubbing, cyanosis or edema Skin no rashes or lesions noted Neuro Sensorium / Orientation: sedated on vent Charges/Coding Procedures Hospitalists Procedures: [id number] Critical Care 1st Hr
[2025-05-16] MEDS: Propofol 10MG/Ml 1,000 MG/100 ML Bottle 13.1 MG CONT INF (07:55)
[2025-05-16] MEDS: fentaNYL drip 100 ML 7.5 MCG CONT INF ×2 (07:55→19:38)
--- NOTE | 2025-05-16 08:02 | PN.HOSP_ITS ---
Reason for Visit Chief Complaint: Altered mental status Objective Data Objective Data Vital Signs: Vital Signs Temp Pulse Resp BP Pulse Ox O2 Del Method FiO2 97.8 F 82 12 101/70 99 Mechanical Ventilator 30 05/16/25 07:00 05/16/25 07:00 05/16/25 07:00 05/16/25 07:00 05/16/25 07:00 05/16/25 07:00 05/16/25 07:00 Oxygen Delivery Method Mechanical Ventilator Weight: 87.2 kg Body Mass Index (BMI) 28.4 Intake & Output: Intake and Output for Last 24 Hours 05/14/25 05/15/25 05/16/25 23:59 23:59 23:59 Intake Total 1405.90 / 1417.65 270.62 / 270.62 Output Total 300 / 300 Balance 1105.90 / 1117.65 270.62 / 270.62 Lab / Micro Data 05/16/25 05:15 05/16/25 05:15 Labs: Laboratory Results - last 24 hr 05/15/25 15:52: POC Glucose 100 05/15/25 15:56: WBC 8.7, RBC 4.02 L, Hgb 12.2 L, Hct 36.2 L, MCV 90.0, MCH 30.3, MCHC 33.7, RDW Std Deviation 56.8 H, RDW Coeff of Francis 17.2 H, Plt Count 162, MPV 11.1, Immature Gran % (Auto) 0.600, Neut % (Auto) 59.4, Lymph % (Auto) 23.2, [place] % (Auto) 8.5, Eos % (Auto) 7.5 H, Baso % (Auto) 0.8, Absolute Neuts (auto) 5.2, Absolute Lymphs (auto) 2.02, Nucleated RBC % 0, PT 19.3 H, INR 1.6, APTT 39.8 H, Sodium 133, Potassium 4.6, Chloride 104, Carbon Dioxide 17.8 L, Anion Gap 11, BUN 13, Creatinine 1.32 H, Est GFR (MDRD) Non-Af 63, BUN/Creatinine Ratio 9.7 L, Glucose 112 H, Calcium 9.1, Total Bilirubin 1.70 H, AST 48 H, ALT 27, Alkaline Phosphatase 116, Ammonia 143.0 H, Total Creatine Kinase 43, Total Protein 6.3, Albumin 2.9 L, Globulin 3.5, Albumin/Globulin Ratio 0.8 L, Triglycerides 69, Lipase 50, Ethyl Alcohol < 10.1 05/15/25 16:11: POC Glucose 117 H 05/15/25 17:25: Urine Color Yellow, Urine Clarity Cloudy, Urine pH 7.0, Ur Specific [place] 1.010, Urine Protein 100 H, Urine Glucose (UA) Normal, Urine Ketones 5 H, Urine Occult Blood 250 H, Urine Nitrite Negative, Urine Bilirubin Negative, Urine Urobilinogen Normal, Ur Leukocyte Esterase 500 H, Urine RBC > 100 SEEN, Urine WBC 5-10 SEEN, Ur Squamous Epith Cells 0 SEEN, Urine Bacteria RARE, Urine Mucus 0 SEEN, Urine Yeast RARE, Urine Opiates Screen NEGATIVE, U Buprenorphine Qual NEGATIVE, Ur Oxycodone Screen NEGATIVE, Urine Methadone Screen NEGATIVE, Urine Fentanyl Screen NEGATIVE, Ur Barbiturates Screen NEGATIVE, Ur Phencyclidine Scrn NEGATIVE, Ur Amphetamines Screen NEGATIVE, U Benzodiazepines Scrn NEGATIVE, Urine Cocaine Screen NEGATIVE, U Cannabinoids Screen NEGATIVE 05/15/25 17:35: Lactic Acid 2.2 H* 05/15/25 18:37: POC Glucose 60 L 05/15/25 20:44: POC Glucose 126 H 05/15/25 22:15: Lactic Acid 1.9 05/16/25 00:05: POC Glucose 142 H 05/16/25 05:15: WBC 8.4, RBC 3.94 L, Hgb 11.6 L, Hct 35.1 L, MCV 89.1, MCH 29.4, MCHC 33.0, RDW Std Deviation 55.6 H, RDW Coeff of Francis 17.2 H, Plt Count 164, MPV 11.5, Sodium 132 L, Potassium 4.9, Chloride 105, Carbon Dioxide 17.4 L, Anion Gap 10, BUN 16, Creatinine 1.27 H, Estim Creat Clear Calc 68.08, Est GFR (MDRD) Non-Af 65, BUN/Creatinine Ratio 12.5, Glucose 139 H, Calcium 9.0, Phosphorus 4.6 H, Magnesium 1.8, Total Bilirubin 1.88 H, AST 44 H, ALT 28, Alkaline Phosphatase 110, Ammonia 126.0 H, Total Protein 6.0, Albumin 2.6 L, Globulin 3.3, A lbumin/Globulin Ratio 0.8 L, Procalcitonin 0.12 H ABG Data ABG results: ABG 05/15/25 05/16/25 20:36 05:48 Specimen Type ART ART Sample Site R Radial R Radial pH 7.46 H 7.45 Bicarbonate Actual 20.7 L 20.1 L Total CO2 22 21 Base Excess -3 L -4 L O2 Saturation 100 H 100 H O2 % 40.0 30.0 ABG pCO2 29.1 L 28.7 L ABG pO2 156 H 174 H Ulices Test Positive Positive Respiration Rate 15 12 O2 Delivery Device Adult Vent Adult Vent Vent Mode AC AC Tidal Volume 500.0 500.0 POC PEEP 5 5 Radiography Diagnostic Testing: Radiology Impression Brain CT 05/15/25 16:35 IMPRESSION: No acute intracranial process. Reading Location: [id number] X-Ray 05/15/25 19:40 IMPRESSION: 1. Cardiomegaly with mild congestion. 2. Enteric tube is in the stomach. Reading Location: [id number] Chest X-Ray 05/16/25 05:10 IMPRESSION: Tubes and lines in position. Reading Location: [facility] Assessment & Plan Assessment/Plan (1) Acute hepatic encephalopathy: PLAN: Plan Patient is a 59-year-old male who presented to [facility] ED on 05/15/2025 with altered mental status. 1. Acute hepatic encephalopathy ? Admit under inpatient status to ICU. History of episodes of hepatic encephalopathy secondary to decompensated cirrhosis as below. On recent admission from 05/06-05/09 patient admitted nonadherence to lactulose therapy due to side effects. Suspect worsened hepatic encephalopathy on this admission is due to nonadherence to home lactulose. Ammonia level 143 on admit. Patient had worsening mentation in the ED and given concern for protecting his airway, decision was made to proceed with intubation. Ventilator management as below. Will give lactulose 10 g 4 times daily for now with goal 2-3 soft bowel movements daily. 2. Acute respiratory failure ? Photo Lab Technician consulted. Patient intubated for airway protection in the ED due to altered mentation as above. Stable on low vent settings. On propofol and fentanyl for sedation. Ventilator management per track manager. 3. Decompensated MASLD cirrhosis with portosystemic anastomosis and esophageal varices ? Has been hospitalized here essentially every month since August for issues related to decompensated cirrhosis. On chart review, appears patient was on hospice for a period of time but this was then revoked in April. He also had a PleurX catheter in place for ascites drainage at one time but this has now been removed. In the past he was found to not be a transplant candidate by the [facility] and he did not pursue transplant evaluation at any other hospitals. Patient essentially stable at his baseline on this admission. MELD score of 20. Appears that patient was somewhat dry on admission, was given 1 L of fluids in the ED. Will hold home Lasix and spironolactone for now but would recommend restarting in the next few days. Can consider GI consult as needed. 4. Type 2 diabetes mellitus ? Glucose 112 on admit. Most recent A1c 5.9% on 04/19. Prior to that A1c values were running in the 7-8% range. Suspect patient may be on too high of dosing of insulin given his cirrhosis as above. Will treat with sliding scale insulin every 6 hours while intubated. 5. Chronic anemia and thrombocytopenia liver disease ? Hemoglobin 12.2, platelet count 162 on admit but it appears CBC was hemoconcentrated. Given 1 L of IV fluids on admit as above. Follow-up a.m. CBC. 6. Adult failure to thrive ?PT/OT/case management consulted. As above, patient with frequent hospitalizations this year and apparently was on hospice at one time. Would seem to be an appropriate candidate for palliative care and/or hospice care. Recommend further discussions with patient regarding this as able. DVT prophylaxis: Lovenox CODE STATUS: Full code, verified Expected disposition: TBD Total clinical time spent by myself addressing the patient's medical issues, reviewing all the data, and collaborating with patient's care team: 79 minutes.
--- NOTE | 2025-05-16 08:02 | PCM.PN.HOSP ---
Reason for Visit Chief Complaint: Altered mental status Subjective Subjective Patient is a 59-year-old gentleman with history of cirrhosis of the liver with multiple admissions presented with altered mental status. He had apparently not been compliant with his lactulose. Patient was felt not to be protecting his airway necessitating patient being intubated in the ED and subsequently admitted to the intensive care unit for further management Objective Data Objective Data Vital Signs: Vital Signs Temp Pulse Resp BP Pulse Ox O2 Del Method FiO2 97.8 F 82 12 101/70 99 Mechanical Ventilator 30 05/16/25 07:00 05/16/25 07:00 05/16/25 07:00 05/16/25 07:00 05/16/25 07:00 05/16/25 07:00 05/16/25 07:00 Oxygen Delivery Method Mechanical Ventilator Weight: 87.2 kg Body Mass Index (BMI) 28.4 Intake & Output: Intake and Output for Last 24 Hours 05/14/25 05/15/25 05/16/25 23:59 23:59 23:59 Intake Total 1405.90 / 1417.65 270.62 / 270.62 Output Total 300 / 300 Balance 1105.90 / 1117.65 270.62 / 270.62 Lab / Micro Data 05/16/25 05:15 05/16/25 05:15 Labs: Laboratory Results - last 24 hr 05/15/25 15:52: POC Glucose 100 05/15/25 15:56: WBC 8.7, RBC 4.02 L, Hgb 12.2 L, Hct 36.2 L, MCV 90.0, MCH 30.3, MCHC 33.7, RDW Std Deviation 56.8 H, RDW Coeff of Francis 17.2 H, Plt Count 162, MPV 11.1, Immature Gran % (Auto) 0.600, Neut % (Auto) 59.4, Lymph % (Auto) 23.2, [place] % (Auto) 8.5, Eos % (Auto) 7.5 H, Baso % (Auto) 0.8, Absolute Neuts (auto) 5.2, Absolute Lymphs (auto) 2.02, Nucleated RBC % 0, PT 19.3 H, INR 1.6, APTT 39.8 H, Sodium 133, Potassium 4.6, Chloride 104, Carbon Dioxide 17.8 L, Anion Gap 11, BUN 13, Creatinine 1.32 H, Est GFR (MDRD) Non-Af 63, BUN/Creatinine Ratio 9.7 L, Glucose 112 H, Calcium 9.1, Total Bilirubin 1.70 H, AST 48 H, ALT 27, Alkaline Phosphatase 116, Ammonia 143.0 H, Total Creatine Kinase 43, Total Protein 6.3, Albumin 2.9 L, Globulin 3.5, Albumin/Globulin Ratio 0.8 L, Triglycerides 69, Lipase 50, Ethyl Alcohol < 10.1 05/15/25 16:11: POC Glucose 117 H 05/15/25 17:25: Urine Color Yellow, Urine Clarity Cloudy, Urine pH 7.0, Ur Specific [place] 1.010, Urine Protein 100 H, Urine Glucose (UA) Normal, Urine Ketones 5 H, Urine Occult Blood 250 H, Urine Nitrite Negative, Urine Bilirubin Negative, Urine Urobilinogen Normal, Ur Leukocyte Esterase 500 H, Urine RBC > 100 SEEN, Urine WBC 5-10 SEEN, Ur Squamous Epith Cells 0 SEEN, Urine Bacteria RARE, Urine Mucus 0 SEEN, Urine Yeast RARE, Urine Opiates Screen NEGATIVE, U Buprenorphine Qual NEGATIVE, Ur Oxycodone Screen NEGATIVE, Urine Methadone Screen NEGATIVE, Urine Fentanyl Screen NEGATIVE, Ur Barbiturates Screen NEGATIVE, Ur Phencyclidine Scrn NEGATIVE, Ur Amphetamines Screen NEGATIVE, U Benzodiazepines Scrn NEGATIVE, Urine Cocaine Screen NEGATIVE, U Cannabinoids Screen NEGATIVE 05/15/25 17:35: Lactic Acid 2.2 H* 05/15/25 18:37: POC Glucose 60 L 05/15/25 20:44: POC Glucose 126 H 05/15/25 22:15: Lactic Acid 1.9 05/16/25 00:05: POC Glucose 142 H 05/16/25 05:15: WBC 8.4, RBC 3.94 L, Hgb 11.6 L, Hct 35.1 L, MCV 89.1, MCH 29.4, MCHC 33.0, RDW Std Deviation 55.6 H, RDW Coeff of Francis 17.2 H, Plt Count 164, MPV 11.5, Sodium 132 L, Potassium 4.9, Chloride 105, Carbon Dioxide 17.4 L, Anion Gap 10, BUN 16, Creatinine 1.27 H, Estim Creat Clear Calc 68.08, Est GFR (MDRD) Non-Af 65, BUN/Creatinine Ratio 12.5, Glucose 139 H, Calcium 9.0, Phosphorus 4.6 H, Magnesium 1.8, Total Bilirubin 1.88 H, AST 44 H, ALT 28, Alkaline Phosphatase 110, Ammonia 126.0 H, Total Protein 6.0, Albumin 2.6 L, Globulin 3.3, Albumin/Globulin Ratio 0.8 L, Procalcitonin 0.12 H ABG Data ABG results: ABG 05/15/25 05/16/25 20:36 05:48 Specimen Type ART ART Sample Site R Radial R Radial pH 7.46 H 7.45 Bicarbonate Actual 20.7 L 20.1 L Total CO2 22 21 Base Excess -3 L -4 L O2 Saturation 100 H 100 H O2 % 40.0 30.0 ABG pCO2 29.1 L 28.7 L ABG pO2 156 H 174 H Ulices Test Positive Positive Respiration Rate 15 12 O2 Delivery Device Adult Vent Adult Vent Vent Mode AC AC Tidal Volume 500.0 500.0 POC PEEP 5 5 Radiography Diagnostic Testing: Radiology Impression Brain CT 05/15/25 16:35 IMPRESSION: No acute intracranial process. Reading Location: [facility] X-Ray 05/15/25 19:40 IMPRESSION: 1. Cardiomegaly with mild congestion. 2. Enteric tube is in the stomach. Reading Location: [id number] Chest X-Ray 05/16/25 05:10 IMPRESSION: Tubes and lines in position. [facility] Narrative GENERAL: Sedated on the vent HEENT: Atraumatic; normocephalic EYES; Anicteric, Normal Conjunctiva NECK; supple, normal thyroid, RESPIRATORY: Diminished to auscultation CARDIOVASCULAR: Regular S1 S2, GI: soft, normoactive bowel sounds, : No Renal angle tenderness; EXTREMITIES: No edema, no clubbing, MUSCULOSKELETAL: no muscle wasting NEURO: Sedated on the vent unable to assess SKIN: No rash Assessment & Plan Assessment/Plan (1) Acute hepatic encephalopathy: PLAN: Plan Patient is a 59-year-old gentleman with history of cirrhosis of the liver with multiple admissions presented with altered mental status. He had apparently not been compliant with his lactulose. Patient was felt not to be protecting his airway necessitating patient being intubated in the ED and subsequently admitted to the intensive care unit for further management next 1. Acute hepatic encephalopathy with significant hyperammonemia ? Secondary to noncompliance with therapy. Patient was found not to be protecting his airway on admission necessitating patient being intubated and admitted to the intensive care unit 2. Acute hypoxic respiratory failure Per stated by patient significant encephalopathy patient was intubated in the ED prior to patient being admitted subsequently admitted to the intensive care unit Vent management deferred to pulmonary/intensive care 3. Cirrhosis of the liver ? Secondary to nonalcoholic fatty liver disease patient is on rifaximin, Aldactone as well as furosemide at home plan is to resume following patient extubation 4. Anemia ? Secondary to chronic disorder monitoring H&H and transfuse if patient becomes symptomatic or hemoglobin falls below 7 5. Thrombocytopenia ? Chronic secondary to patient chronic liver disease will monitor with daily CBC with differential 6. Diabetes mellitus type II -patient's oral hypoglycemics held. Placed on long acting insulin, Accu-Cheks a.c. and at bedtime and covered with sliding scale insulin 7. History of extensive venous thrombosis - Patient was treated with Lovenox 8. GERD ? Patient is on PPI 9. Obstructive sleep apnea ? Patient is on CPAP at night ? Plan is to resume once patient is weaned off the vent 10. DVT prophylaxis ? Subcu Lovenox Time spent in the patient's overall evaluation,decision-making process, review of diagnostic data, adjustment of management, discussion with other providers, nursing nursing and ancillary staff involved in patient's care documentation, 50 Minutes Charges/Coding Visit Charges Inpatient E&M: [address] [facility] L3
[2025-05-16] MEDS: Chlorhexidine 15 ML PO ×2 (08:49→22:03)
--- NOTE | 2025-05-16 10:06 | CASEMGMT ---
Addendum entered by Eloise Hightower 05/16/25 11:55: Social Work SW attempted to call Leopoldo at two different numbers SW found in the chart. The number listed below is not a working number. SW tried this number also: [phone]. SW did leave a message to call this SW, though the voicemail does not state whose number this is. SW also tried two different numbers listed for pt's significant other Mary Robertson, neither number works. PIERRE Tobias Addendum entered by Eloise Hightower 05/16/25 10:48: Social Work SW did look through old demographics in pt's chart, did find a number for pt's son Leopoldo: [phone], and his significant other Mary Robertson: [phone]. PIERRE Tobias Addendum entered by Eloise Hightower 05/16/25 10:27: Social Work SW did attempt to Google pt's son's names, was not able to come up with any helpful results at this time. PIERRE Tobias Original Note: Social Work SW participated in ICU rounds today, pt is intubated. Physician would like to have a family meeting. However, we do not have POA documents on the chart. Pt has indicated in the past he would like Sylvia, his ex , as the POA. On the last admission, Cal was asked by JEANNINE to complete the documents and he declined, stating he thinks he has them at home and Sylvia is POA, SW asked him to have the documents brought in. SW also did call hospice and they do not have any papers on file either for POA. SW called pt's exwife Sylvia, she is on her way here. She states that she is POA, SW asked about the documents. She states hospice did do the papers but is not sure if they are completed. She will bring in what she has later today. Sylvia then did come to the ICU, SW spoke w/Sylvia and her Jerald in the room, RN present. We discussed the POA documents again, Sylvia states that hospice started the documents and she thinks Cal signed them, but is not sure they are notarized or witnessed. SW explained multiple times that if the document is not notarized or witnessed, it's not valid. SW will review the document should they bring them in later, RN will let SW know. As per Sylvia, the son's names are Jose and Lizandro. If needed SW can do a Google search for their numbers. PIERRE Tobias
--- NOTE | 2025-05-16 10:11 | PCM.CONS.P ---
[facility] Medical History Diffuse abdominal pain Acute hepatic encephalopathy Hyperammonemia Elevated liver enzymes Cirrhosis of liver with ascites Decompensated cirrhosis History of diabetes mellitus Chronic anemia VRE (vancomycin resistant enterococcus) culture positive Spinal stenosis, lumbar region with neurogenic claudication Umbilical hernia Chronic hyponatremia Weakness Diarrhea Sepsis Acidosis, lactic Acute hypotension Acute UTI Chronic hypotension Obesity (BMI 30-39.9) Chronic back pain ISABEL (acute kidney injury) Hypotension Hyperbilirubinemia Liver cirrhosis secondary to HARRIS (nonalcoholic steatohepatitis) HLD (hyperlipidemia) HTN (hypertension) Thrombocytopenia Chronic anemia Former tobacco use Diabetes mellitus, type 2 ABBY on CPAP Back pain Home Medications ?Medication ?Instructions ?Recorded ?Last Taken ?Type acetaminophen 500 mg tablet 1,000 mg PO Q8 PRN fever or pain 10/28/24 Unknown History cyclobenzaprine 10 mg tablet 10 mg PO QHS muscle relaxer 01/02/25 02/15/25 History pen needle, diabetic 31 gauge x #1,200 ea 01/31/25 Unknown Rx 12/17 (Pen Needle) insulin glargine-yfgn 100 unit/mL 30 unit subcut QHS blood glucose 03/10/25 Unknown History (3 mL) subcutaneous pen insulin lispro 100 unit/mL 20 unit subcut TIDAC diabetes 04/07/25 Unknown History subcutaneous pen (Humalog KwikPen (U-100) Insulin) metformin 500 mg tablet 500 mg PO QHS blood glucose 04/07/25 Unknown History oxycodone 5 mg tablet 5 mg PO TID PRN PRN dyspnea 04/07/25 Unknown History sodium bicarbonate 650 mg tablet 650 mg PO BID supplement 04/07/25 Unknown History ascorbic acid (vitamin C) 500 mg 500 mg PO BID supplement #60 tabs 04/10/25 05/06/25 Rx tablet carvedilol 3.125 mg tablet 6.25 mg (2 x 3.125 mg) PO BID BP 1 04/10/25 05/06/25 Rx month #60 tabs ferrous sulfate 325 mg (65 mg 325 mg PO QODAY supplement #30 tabs 04/10/25 Unknown Rx iron) tablet furosemide 40 mg tablet 40 mg PO DAILY diuresis 30 days 04/10/25 Unknown Rx #30 tabs lactulose 10 gram/15 mL oral 10 g (15 mL) PO 4XD liver 30 days 04/10/25 Unknown Rx solution #1 mL spironolactone 100 mg tablet 150 mg (1.5 x 100 mg) PO DAILY BP 04/10/25 Unknown Rx 30 days #45 tabs insulin lispro 100 unit/mL subcut blood glucose 04/18/25 Unknown History subcutaneous half-unit pen aluminum-mag hydroxide-simethicone 5 ml PO Q6H PRN indigestion #3,000 05/09/25 Unknown Rx 400 mg-400 mg-40 mg/5 mL oral susp mL (Mylanta Maximum Strength) prochlorperazine maleate 5 mg 5 mg PO TID PRN nausea and 05/09/25 Unknown Rx tablet (Compazine) vomiting #90 tabs Allergy/AdvReac Type Severity Reaction Status Date / Time No Known Allergies Allergy Verified 05/15/25 15:46 Family History Mother Heart disease Hypertension CAD (coronary artery disease) Myocardial infarction Father Hypertension Heart disease Heart failure Surgical History History of tonsillectomy and adenoidectomy Social History household members: other details: Lives with his ex /her . Smoking Status: Former smoker how long ago did patient quit smoking: Quit Fall 2023, smoked 1.5 ppd since teen until quit. alcohol intake: never substance use type: does not use additional social history: EX and a friend help with his care. ROS ROS Narrative intubated Review of Systems ROS Unobtainable: due to encephalopathy, due to endotracheal tube, due to mental condition, due to mental status and other Physical Exam Const Constitutional Narrative: pt is intubated HEENT normocephalic Resp Resp Narrative: intubated Auscultation: diminished lung sounds Cardio regular rate and regular rhythm GI normal to inspection, nondistended, normoactive bowel sounds Extremity normal capillary refill Skin Skin Narrative: jaundice HPI Current admission Current Code Status: full code Associated Diagnosis: metabolic encephalopathy Consult Data Date of Consult: 05/16/25 Location of consult: ICU Reason for referral: goals of care Referral source: animal care service worker diagnosis (Summary list): metabolic encephalopathy HPI Narrative HPI Narrative: PAIN ASSESSMENT Location: [ ] Quality: [ ] Severity/Quantity: [ ] Timing/Frequency: [ ] Context: [ ] Factors that make it better/worse: [ ] Associated signs & symptoms: [ ] Prior to meeting with the patient at bedside and reviewed labs and radiological studies as well as documentation from current and previous visits. I then met with the patient, FRANKLIN ARCHULETA at bedside. Franklin is currently intubated and unable to have goals of care conversation. It is reported that patient lives with his ex- and her . Patient has no POA paperwork on file. Patient does have next of kin a son named Haile and a son named Dominic, whom we have been unable to reach. Franklin has had multiple admissions for the same complaint. It is reported that he was on hospice services with [facility] and that his ex-, Sylvia, fired them because they insinuated that she was not caring for him adequately. The phone numbers that we have for the sons are not working numbers. Pt is currently on the vent at 30% FiO2, fentanyl at 75mcg, Propofol at 25. Will continue to follow in an attempt to establish goals of care as well as discuss code status. I did meet with SW and CM to obtain social history as well as discussion about POA. per hospitalist: FRANKLIN ARCHULETA, is a 59 M who presented to [facility] ED on 05/15/2025 with altered mental status. Patient is well-known to our hospital. Medical history significant for HARRIS cirrhosis with episodes of acute hepatic encephalopathy. He most recently was hospitalized here from 05/06-05/09 for abdominal pain with nausea and emesis and concern for hepatic encephalopathy. His ammonia level was high but he had normal mentation at the time of admission so hepatic encephalopathy was ruled out. However patient did note that he has recently been noncompliant with his lactulose because he believed it was causing his symptoms of abdominal pain with nausea and emesis. He noted that taking Mylanta is helpful to relieve the symptoms so it was recommended that he take his lactulose as prescribed as well as Mylanta regularly to control the symptoms. He presented to the ED today with altered mental status. ED physician noted that patient was attempting to answer questions with mumbling but could not answer any questions appropriately or provide any medical history. He was mildly hypotensive to the 90s over 50s but otherwise in normal sinus rhythm, afebrile and stable on room air at rest. CBC and BMP were fairly benign. Lactic acid 2.2. T. bili 1.70, AST 48, ALT 27, alk phos 116. Ammonia level 143 which is slightly worsened from ammonia 128 on 05/09. CT brain was unremarkable. After labs and imaging had been done, patient was reevaluated and it was noted that his mentation worsened and he was essentially unresponsive. He was only opening his eyes to noxious stimuli. Given concern for patient not being able to protect his airway, decision was made to proceed with intubation. He was successfully intubated in the ED. Hospitalist was then contacted for admission. I saw the patient at bedside in the ED. He was sedated and intubated and not following commands. Will be admitted for further management. 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 Pt unable to provide history as he is intubated. He was recently hospitalized here for UTI and elevated ammonia in setting of noncompliance with lactulose dosing at home. He improved with abx and lactulose, and ultimately discharged on 05/09. He was brought back to ED today with severe AMS, was only mumbling occasionally and could not answer questions. His apparently gave him 20 units of insulin at home prior to arrival despite his sugar not being elevated. Ammonia up to 143 now, glucose down to 60. CT head negative for acute pathology. He had worsening obtundation and so ultimately intubated for airway protection. Palliative Assessment Advanced Directive - Current Admission Advance Directive: Advance Directive ON ADMISSION - REFERENCE Which Advance Directives None 05/15/25 20:45 documents are scanned in? Do you have a Healthcare No 05/15/25 20:45 Living Will? Do you have a Healthcare Power No 05/15/25 16:25 of Wind Tunnel Engineer? Do You Want Additional Declined 05/15/25 16:25 Information on Advanced Directives or Healthcare Proxy/DPOA comments: unknown, attempting to locate Psychosocial/Spiritual Information Living situation/Marital status: it sounds as though he lives with his ex and her Geographic location: [place] Jainism/Theresa or spiritual preference: unknown Spiritual distress: unknown Prior functional status: unknown Assistive devices at home: unknown Cultrual issues: unknown Information about the patient as a person: unknown Symptoms Palliative performance scale: currently 10% Palliative prognostic index: 15.0 (this is subject to change based on current presentation) Dyspnea symptoms: Severe Constipation symptoms: Moderate Objective Data Objective Data Vital Signs: Vital Signs Temp Pulse Resp BP Pulse Ox O2 Del Method FiO2 97.8 F 82 12 91/62 97 Mechanical Ventilator 30 05/16/25 10:00 05/16/25 10:00 05/16/25 10:00 05/16/25 10:00 05/16/25 10:00 05/16/25 10:00 05/16/25 10:00 Oxygen Delivery Method Mechanical Ventilator Weight: 192 lb 3.889 oz Body Mass Index (BMI) 28.4 Intake & Output: Intake and Output for Last 24 Hours 05/14/25 05/15/25 05/16/25 23:59 23:59 23:59 Intake Total 1405.90 / 1417.65 311.82 / 311.82 Output Total 300 / 300 Balance 1105.90 / 1117.65 311.82 / 311.82 Lab / Micro Data Attestation: I reviewed the patient's lab results. 05/16/25 05:15 05/16/25 05:15 Labs: Laboratory Results - last 24 hr 05/15/25 15:52: POC Glucose 100 05/15/25 15:56: WBC 8.7, RBC 4.02 L, Hgb 12.2 L, Hct 36.2 L, MCV 90.0, MCH 30.3, MCHC 33.7, RDW Std Deviation 56.8 H, RDW Coeff of Francis 17.2 H, Plt Count 162, MPV 11.1, Immature Gran % (Auto) 0.600, Neut % (Auto) 59.4, Lymph % (Auto) 23.2, [place] % (Auto) 8.5, Eos % (Auto) 7.5 H, Baso % (Auto) 0.8, Absolute Neuts (auto) 5.2, Absolute Lymphs (auto) 2.02, Nucleated RBC % 0, PT 19.3 H, INR 1.6, APTT 39.8 H, Sodium 133, Potassium 4.6, Chloride 104, Carbon Dioxide 17.8 L, Anion Gap 11, BUN 13, Creatinine 1.32 H, Est GFR (MDRD) Non-Af 63, BUN/Creatinine Ratio 9.7 L, Glucose 112 H, Calcium 9.1, Total Bilirubin 1.70 H, AST 48 H, ALT 27, Alkaline Phosphatase 116, Ammonia 143.0 H, Total Creatine Kinase 43, Total Protein 6.3, Albumin 2.9 L, Globulin 3.5, Albumin/Globulin Ratio 0.8 L, Triglycerides 69, Lipase 50, Ethyl Alcohol < 10.1 05/15/25 16:11: POC Glucose 117 H 05/15/25 17:25: Urine Color Yellow, Urine Clarity Cloudy, Urine pH 7.0, Ur Specific [place] 1.010, Urine Protein 100 H, Urine Glucose (UA) Normal, Urine Ketones 5 H, Urine Occult Blood 250 H, Urine Nitrite Negative, Urine Bilirubin Negative, Urine Urobilinogen Normal, Ur Leukocyte Esterase 500 H, Urine RBC > 100 SEEN, Urine WBC 5-10 SEEN, Ur Squamous Epith Cells 0 SEEN, Urine Bacteria RARE, Urine Mucus 0 SEEN, Urine Yeast RARE, Urine Opiates Screen NEGATIVE, U Buprenorphine Qual NEGATIVE, Ur Oxycodone Screen NEGATIVE, Urine Methadone Screen NEGATIVE, Urine Fentanyl Screen NEGATIVE, Ur Barbiturates Screen NEGATIVE, Ur Phencyclidine Scrn NEGATIVE, Ur Amphetamines Screen NEGATIVE, U Benzodiazepines Scrn NEGATIVE, Urine Cocaine Screen NEGATIVE, U Cannabinoids Screen NEGATIVE 05/15/25 17:35: Lactic Acid 2.2 H* 05/15/25 18:37: POC Glucose 60 L 05/15/25 20:44: POC Glucose 126 H 05/15/25 22:15: Lactic Acid 1.9 05/16/25 00:05: POC Glucose 142 H 05/16/25 05:15: WBC 8.4, RBC 3.94 L, Hgb 11.6 L, Hct 35.1 L, MCV 89.1, MCH 29.4, MCHC 33.0, RDW Std Deviation 55.6 H, RDW Coeff of Francis 17.2 H, Plt Count 164, MPV 11.5, Sodium 132 L, Potassium 4.9, Chloride 105, Carbon Dioxide 17.4 L, Anion Gap 10, BUN 16, Creatinine 1.27 H, Estim Creat Clear Calc 68.08, Est GFR (MDRD) Non-Af 65, BUN/Creatinine Ratio 12.5, Glucose 139 H, Calcium 9.0, Phosphorus 4.6 H, Magnesium 1.8, Total Bilirubin 1.88 H, AST 44 H, ALT 28, Alkaline Phosphatase 110, Ammonia 126.0 H, Total Protein 6.0, Albumin 2.6 L, Globulin 3.3, Albumin/Globulin Ratio 0.8 L, Procalcitonin 0.12 H ABG Data ABG results: ABG 05/15/25 05/16/25 20:36 05:48 Specimen Type ART ART Sample Site R Radial R Radial pH 7.46 H 7.45 Bicarbonate Actual 20.7 L 20.1 L Total CO2 22 21 Base Excess -3 L -4 L O2 Saturation 100 H 100 H O2 % 40.0 30.0 ABG pCO2 29.1 L 28.7 L ABG pO2 156 H 174 H Ulices Test Positive Positive Respiration Rate 15 12 O2 Delivery Device Adult Vent Adult Vent Vent Mode AC AC Tidal Volume 500.0 500.0 POC PEEP 5 5 Radiography Diagnostic Testing: Radiology Impression Brain CT 05/15/25 16:35 IMPRESSION: No acute intracranial process. Reading Location: [facility] KUB X-Ray 05/15/25 19:40 IMPRESSION: 1. Cardiomegaly with mild congestion. 2. Enteric tube is in the stomach. Reading Location: [facility] Chest X-Ray 05/16/25 05:10 IMPRESSION: Tubes and lines in position. Reading Location: [facility] Rhythm Strip Rhythm Strip: Sinus Rhythm Rate: 82 Impressions & Recommendations Patient & Family Issues discussed with the patient and family: awaiting info to locate [facility] Patient goal: unable to assess Family goal: unable to assess Ethical & Legal Ethical and legal: needs POA or [facility] Impressions Impressions: recommend that the pt return to hospice services Recommentation Palliative recommendations: Pt was on hospice but discontinued (per report) Encouter Achieved as a result of this Palliative Care Encounter: [ [id number], [id number], [id number]] minutes were spent in total for this visit which consisted, primarily of counseling and education dealing with the complex and emotionally intense issues of symptom management and palliative care in the setting of serious and potentially life-threatening illness. Review of documentation, labs and radiological studies. ?Patient/family had the opportunity to ask questions, discussion with CM and SW about POA and attempting to contact [facility] Plan (1) Hypoglycemia: PLAN: medical mgmt per IDT (2) Acute hepatic encephalopathy: PLAN: med mgmt per IDT (3) Acute hepatic encephalopathy: PLAN: med mgmt per IDT (4) Hyperammonemia: PLAN: med mgmt per IDT (5) Acute alteration in mental status: PLAN: med mgmt per IDT (6) Palliative care encounter: PLAN: *attempt to locate [facility] to discuss pt care *recommend the pt receive hospice services for his end stage liver cirhhosis (7) Goals of care, counseling/discussion: PLAN: *assist in locating [facility]. Pt has an ex but unsure if she is POA. *astablish GOC with family and pt once he is able to communciate
--- NOTE | 2025-05-16 12:47 | CASEMGMT ---
Social Work Sylvia did bring in the POA papers, they are not signed, notarized, or witnessed so are not valid. Once pt is off of the ventilator and is alert and oriented, SW will speak w/pt and have him complete POA for healthcare documents. PIERRE Tobias
[2025-05-16] MEDS: Propofol 10MG/Ml 1,000 MG/100 ML Bottle 7.8 MG CONT INF (14:43)
--- NOTE | 2025-05-16 16:15 | CASEMGMT ---
Discharge Planning Call rec'd by pt's daughter, Josy Wiggins ([phone]). Josy was notified by pts ex- (Sylvia) that he was in the hospital. Sylvia was actually part of the phone call. Josy states that pt has another daughter, Mendy Wiggins ([phone]). Unfortunately, she does not have numbers for pts sons, Leopoldo & Christopher. When asked, Josy said pt only has 4 children. Encouraged pt to try to make contact with her brothers so that we could have contact information. [facility] [place] Gonzalez Platt DC Planning Asst.
[2025-05-17] VITALS (36 sets, daily range): BP systolic 86–111; BP diastolic 60–77; PULSE 88–103; RESP 6–18; TEMP 36.8–37.3; O2SAT 92–98; BMI 28.8
[2025-05-17] MEDS: Propofol 10MG/Ml 1,000 MG/100 ML Bottle 7.8 MG CONT INF (02:40)
[2025-05-17 04:25] LABS: Hematocrit 36.6 % (40-54); Hemoglobin 12.3 g/dL (13.0-16.5); Immature Granulocytes Count 0.060 X10^3/uL (0.0-0.0); Mean Corp Hgb Conc 33.6 g/dL (32-36); Mean Corpuscular Volume 89.5 fL (80-94); Mean Platelet Vol. 11.3 fl (6.2-12.0); NRBC Flagged by Analyzer 0 % (0-5); POSITIVE DIFFERENTIAL YES; Platelet Count 165 K/mm3 (150-450); RBC Distribution Width CV 17.2 % (11.6-14.6); RBC Distribution Width SD 55.8 fl (35.1-43.9); Red Blood Count 4.09 M/mm3 (4.6-6.2); White Blood Count 14.0 K/mm3 (4.4-11.0)
[2025-05-17 04:26] LABS: Differential Indicated SCAN CRITERIA MET
[2025-05-17 04:43] LABS: Ammonia 144.0 umol/L (16-60)
[2025-05-17 04:45] LABS: AST(SGOT) 41 U/L (<=37); Alanine Aminotransfer ALT/SGPT 27 U/L (<=46); Albumin, Serum 2.7 g/dL (3.5-5.0); Alkaline Phosphatase 115 U/L (40-129); Anion Gap 12 (5-15); BUN 23 mg/dL (4-19); BUN/Creat Ratio 14.8 RATIO (10-20); Calcium,Total 9.1 mg/dL (7.6-11.0); Carbon Dioxide 15.6 mmol/L (21.0-32.0); Chloride 103 mmol/L (98-108); Estimated Creatinine Clearance 55.43 ml/min (50-250); Globulin 3.5 g/dL (2.2-4.2); Glucose 169 mg/dL (70-99); Magnesium 2.2 mg/dL (1.5-2.2); Potassium 5.6 mmol/L (3.3-5.1)
[2025-05-17 04:53] LABS: Base Excess -5 mmol/L (-2 to +2); FI02 30.0; PEEP 5; PO2 67 mmHG (75-100); RR 12; SITE L Radial; SO2 94 % (95-99)
[2025-05-17 05:19] LABS: Differential Comment SCANNED
[2025-05-17 05:20] LABS: Red Cell Morphology NORM C+C NORMAL (NORM C&C)
--- NOTE | 2025-05-17 07:30 | PCM.PN.INT ---
Assessment & Plan Assessment/Plan (1) Acute hepatic encephalopathy: PLAN: Plan RECOMMENDATIONS: 1. Continue assist-control mode of mechanical ventilation. Wean FiO2 and PEEP as tolerated. 2. Continue lactulose and rifaximin. 3. Continue PPI therapy. 4. Continue to monitor blood sugars to maintain euglycemia. 5. Minimize sedation as tolerated. Goal to maintain a RASS of -1 to 1. 6. Attempting to contact next of kin to set up a goals of care meeting. 7. Continue PPI therapy. 8. Monitor ammonia level daily. IMPRESSIONS: 1. Acute hypoxemic respiratory failure The patient was intubated primarily for airway protection in the setting of altered mental status. The patient will be maintained on assist-control mode of mechanical ventilation, with a goal to wean FiO2 and PEEP to maintain saturations at or above 90%. Propofol and fentanyl will be continued for sedation. Once the patient's encephalopathy has improved, we will proceed with spontaneous awakening and breathing trials. Ultimately, until the patient's ammonia level improves, it is unlikely that he will be able to be extubated. 2. Acute encephalopathy Most likely multifactorial with hepatic encephalopathy in the setting of decompensated cirrhosis contributing along with hypoglycemia. Will plan to continue aggressive medical management of the patient's hepatic encephalopathy with lactulose and continue to monitor ammonia level for improvement. Blood sugars will be monitored accordingly. 3. History of BOYER cirrhosis with frequent hospitalizations The patient has a documented history of medical noncompliance leading to decompensation in his cirrhosis and subsequent hepatic encephalopathy and need for hospitalization. The patient is apparently been declined for transplantation at [facility] in the past. In order to be referred to an alternative transplant center, the patient would need to be referred by his PCP. However, the patient has never been able to stay out of the hospital long enough to accomplish this goal. Accordingly, palliative care medicine is currently following. We are attempting to reach the patient's next of kin to set up a goals of care meeting. 4. History of anemia/thrombocytopenia/diabetes mellitus/GERD/obstructive sleep apnea Complicates care, management, recovery and prognosis. Continue PPI therapy as ordered. Continue supportive care as outlined above. TIME: 33 minutes of critical care time, independent of procedures, was spent addressing the patient's acute hypoxemic respiratory failure, acute encephalopathy, decompensated Boyer cirrhosis, review of all data and collaboration with the care team. Subjective Subjective The patient was seen and examined at the bedside this morning. Events from the last 24 hours have been reviewed. The patient is currently afebrile, hemodynamically stable and maintaining appropriate oxygen saturations on assist-control mode mechanical ventilation with an FiO2 requirement of 35% and PEEP of 5. The patient has yet to have a bowel movement. Accordingly, the patient's ammonia level remains elevated. He is currently documented to be overall net +2 L for the hospitalization. White blood cell count is elevated at 14,000 with a hemoglobin of 12.3 g/dL and platelet count of 165,000. Arterial blood gas was notable for a pH of 7.41 with a pCO2 of 31 and pO2 67. Potassium was elevated at 5.6. The patient failed his spontaneous breathing trial this morning. Objective Data Objective Data The patient's most recent lab work, culture data and imaging studies have all been personally reviewed. Sputum culture is pending. Vital Signs: Vital Signs Temp Pulse Resp BP Pulse Ox O2 Del Method FiO2 98.7 F 88 12 96/65 95 Mechanical Ventilator 35 05/17/25 05:00 05/17/25 07:00 05/17/25 07:00 05/17/25 06:00 05/17/25 07:00 05/17/25 06:00 05/17/25 07:00 Oxygen Delivery Method Mechanical Ventilator Weight: 194 lb 3.636 oz Body Mass Index (BMI) 28.8 Intake & Output: Intake and Output for Last 24 Hours 05/15/25 05/16/25 05/17/25 23:59 23:59 23:59 Intake Total 1405.90 / 1417.65 1339.73 / 1355.03 109.6 / 109.6 Output Total 300 / 300 435 / 435 60 / 60 Balance 1105.90 / 1117.65 904.73 / 920.03 49.6 / 49.6 Lab / Micro Data Attestation: I reviewed the patient's lab results. 05/17/25 04:10 05/17/25 04:10 Labs: Laboratory Results - last 24 hr 05/16/25 05:15: PT Cancelled, INR Cancelled 05/16/25 06:59: POC Glucose 124 H 05/16/25 13:39: POC Glucose 131 H 05/17/25 01:01: POC Glucose 144 H 05/17/25 04:10: WBC 14.0 H, RBC 4.09 L, Hgb 12.3 L, Hct 36.6 L, MCV 89.5, MCH 30.1, MCHC 33.6, RDW Std Deviation 55.8 H, RDW Coeff of Francis 17.2 H, Plt Count 165, MPV 11.3, Immature Gran % (Auto) 0.400, Neut % (Auto) 72.7 H, Lymph % (Auto) 11.5 L, [place] % (Auto) 11.4 H, Eos % (Auto) 3.4, Baso % (Auto) 0.6, Absolute Neuts (auto) 10.2 H, Absolute Lymphs (auto) 1.61, Nucleated RBC % 0, Differential Comment SCANNED, Platelet Estimate ADEQUATE, RBC Morphology NORM C+C, Sodium 130 L, Potassium 5.6 H, Chloride 103, Carbon Dioxide 15.6 L, Anion Gap 12, BUN 23 H, Creatinine 1.56 H, Estim Creat Clear Calc 55.43, Est GFR (MDRD) Non-Af 51 L, BUN/Creatinine Ratio 14.8, Glucose 169 H, Calcium 9.1, Phosphorus 5.3 H, Magnesium 2.2, Total Bilirubin 2.02 H, AST 41 H, ALT 27, Alkaline Phosphatase 115, Ammonia 144.0 H, Total Protein 6.2, Albumin 2.7 L, Globulin 3.5, Albumin/Globulin Ratio 0.8 L Micro: Microbiology 05/15/25 23:35 Sputum, Tracheal Aspirate Gram Stain - Final ABG Data ABG results: ABG 05/17/25 04:49 Specimen Type ART Sample Site L Radial pH 7.41 Bicarbonate Actual 19.5 L Total CO2 20 Base Excess -5 L O2 Saturation 94 L O2 % 30.0 ABG pCO2 30.5 L ABG pO2 67 L Ulices Test N/A Respiration Rate 12 O2 Delivery Device Adult Vent Vent Mode AC Tidal Volume 500.0 POC PEEP 5 Radiography Diagnostic Testing: Radiology Impression Brain CT 05/15/25 16:35 IMPRESSION: No acute intracranial process. Reading Location: [facility] X-Ray 05/15/25 19:40 IMPRESSION: 1. Cardiomegaly with mild congestion. 2. Enteric tube is in the stomach. Reading Location: [facility] Chest X-Ray 05/16/25 05:10 IMPRESSION: Tubes and lines in position. [facility] Rhythm Strip Rhythm Strip: Sinus Rhythm Rate: 82 Physical Exam Const Constitutional Narrative: Intubated, sedated and mechanically ventilated. General Appearance: ill appearing Positive for chronically HEENT normocephalic and head/scalp atraumatic Mouth: endotracheal tube in place and OG tube in place Eyes EOMs intact bilaterally and conjunctivae normal Neck supple General: trachea midline Resp normal respiratory effort Auscultation: Negative for rales, rhonchi or wheezes Cardio regular rate and regular rhythm GI soft to palpation and non-tender Extremity no clubbing, cyanosis or edema Skin no rashes or lesions noted Neuro Sensorium / Orientation: sedated on vent Charges/Coding Procedures Hospitalists Procedures: 50734 Critical Care 1st Hr
--- NOTE | 2025-05-17 07:47 | PCM.PN.HOSP ---
Reason for Visit Chief Complaint: Altered mental status Subjective Subjective Patient seen awake on the vent currently undergoing weaning trial. Patient however has elevated potassium level ordered Kayexalate Objective Data Objective Data Vital Signs: Vital Signs Temp Pulse Resp BP Pulse Ox O2 Del Method FiO2 98.7 F 89 12 96/65 94 Mechanical Ventilator 35 05/17/25 05:00 05/17/25 07:00 05/17/25 07:00 05/17/25 07:00 05/17/25 07:00 05/17/25 07:00 05/17/25 07:00 Oxygen Delivery Method Mechanical Ventilator Weight: 88.1 kg Body Mass Index (BMI) 28.8 Intake & Output: Intake and Output for Last 24 Hours 05/15/25 05/16/25 05/17/25 23:59 23:59 23:59 Intake Total 1405.90 / 1417.65 1339.73 / 1355.03 109.6 / 109.6 Output Total 300 / 300 435 / 435 60 / 60 Balance 1105.90 / 1117.65 904.73 / 920.03 49.6 / 49.6 Lab / Micro Data 05/17/25 04:10 05/17/25 04:10 Labs: Laboratory Results - last 24 hr 05/16/25 05:15: PT Cancelled, INR Cancelled 05/16/25 06:59: POC Glucose 124 H 05/16/25 13:39: POC Glucose 131 H 05/17/25 01:01: POC Glucose 144 H 05/17/25 04:10: WBC 14.0 H, RBC 4.09 L, Hgb 12.3 L, Hct 36.6 L, MCV 89.5, MCH 30.1, MCHC 33.6, RDW Std Deviation 55.8 H, RDW Coeff of Francis 17.2 H, Plt Count 165, MPV 11.3, Immature Gran % (Auto) 0.400, Neut % (Auto) 72.7 H, Lymph % (Auto) 11.5 L, [place] % (Auto) 11.4 H, Eos % (Auto) 3.4, Baso % (Auto) 0.6, Absolute Neuts (auto) 10.2 H, Absolute Lymphs (auto) 1.61, Nucleated RBC % 0, Differential Comment SCANNED, Platelet Estimate ADEQUATE, RBC Morphology NORM C+C, Sodium 130 L, Potassium 5.6 H, Chloride 103, Carbon Dioxide 15.6 L, Anion Gap 12, BUN 23 H, Creatinine 1.56 H, Estim Creat Clear Calc 55.43, Est GFR (MDRD) Non-Af 51 L, BUN/Creatinine Ratio 14.8, Glucose 169 H, Calcium 9.1, Phosphorus 5.3 H, Magnesium 2.2, Total Bilirubin 2.02 H, AST 41 H, ALT 27, Alkaline Phosphatase 115, Ammonia 144.0 H, Total Protein 6.2, Albumin 2.7 L, Globulin 3.5, Albumin/Globulin Ratio 0.8 L Micro: Microbiology 05/15/25 23:35 Sputum, Tracheal Aspirate Gram Stain - Final ABG Data ABG results: ABG 05/17/25 04:49 Specimen Type ART Sample Site L Radial pH 7.41 Bicarbonate Actual 19.5 L Total CO2 20 Base Excess -5 L O2 Saturation 94 L O2 % 30.0 ABG pCO2 30.5 L ABG pO2 67 L Ulices Test N/A Respiration Rate 12 O2 Delivery Device Adult Vent Vent Mode AC Tidal Volume 500.0 POC PEEP 5 Rhythm Strip Rhythm Strip: Sinus Rhythm Rate: 82 Physical Exam Narrative GENERAL: Sedated on the vent HEENT: Atraumatic; normocephalic EYES; Anicteric, Normal Conjunctiva NECK; supple, normal thyroid, RESPIRATORY: Diminished to auscultation CARDIOVASCULAR: Regular S1 S2, GI: soft, normoactive bowel sounds, : No Renal angle tenderness; EXTREMITIES: No edema, no clubbing, MUSCULOSKELETAL: no muscle wasting NEURO: Sedated on the vent unable to assess SKIN: No rash Assessment & Plan Assessment/Plan (1) Acute hepatic encephalopathy: PLAN: Plan Patient is a 59-year-old gentleman with history of cirrhosis of the liver with multiple admissions presented with altered mental status. He had apparently not been compliant with his lactulose. Patient was felt not to be protecting his airway necessitating patient being intubated in the ED and subsequently admitted to the intensive care unit for further management next 1. Acute hepatic encephalopathy with significant hyperammonemia ? Secondary to noncompliance with therapy. Patient was found not to be protecting his airway on admission necessitating patient being intubated and admitted to the intensive care unit ? 05/17/2020 patient is currently awake on the vent undergoing weaning trial 2. Acute hypoxic respiratory failure Per stated by patient significant encephalopathy patient was intubated in the ED prior to patient being admitted subsequently admitted to the intensive care unit Vent management deferred to pulmonary/intensive care ? 05/17/2025; weaning trial this a.m. 3. Cirrhosis of the liver ? Secondary to nonalcoholic fatty liver disease patient is on rifaximin, Aldactone as well as furosemide at home plan is to resume following patient extubation 4. Anemia ? Secondary to chronic disorder monitoring H&H and transfuse if patient becomes symptomatic or hemoglobin falls below 7 5. Thrombocytopenia ? Chronic secondary to patient chronic liver disease will monitor with daily CBC with differential 6. Diabetes mellitus type II -patient's oral hypoglycemics held. Placed on long acting insulin, Accu-Cheks a.c. and at bedtime and covered with sliding scale insulin 7. History of extensive venous thrombosis - Patient was treated with Lovenox 8. GERD ? Patient is on PPI 9. Obstructive sleep apnea ? Patient is on CPAP at night ? Plan is to resume once patient is weaned off the vent 10. DVT prophylaxis ? Subcu Lovenox 11. Hyperkalemia ? Ordered 30 g of Kayexalate with repeat potassium levels ordered for now Time spent in the patient's overall evaluation,decision-making process, review of diagnostic data, adjustment of management, discussion with other providers, nursing nursing and ancillary staff involved in patient's care documentation, 50 Minutes Charges/Coding Visit Charges Inpatient E&M: 70492 [facility] L3
[2025-05-17] MEDS: Chlorhexidine 15 ML PO ×2 (07:50→21:57)
[2025-05-17] MEDS: CHLORHEXIDINE GLUC 2% CLOTH 1 EACH TOWELETTE TOPICAL (07:50)
[2025-05-17] MEDS: Pantoprazole Sodium 40 MG in 0.9% Normal Saline (100mL MB+) 100 ML 300 MG IV ×2 (07:53→21:56)
--- NOTE | 2025-05-17 09:19 | CASEMGMT ---
DAYSI HUGHES received phone call from pt ex- Sylvia. She stated someone from the hospital called Cal's son and talked to him, he doesn't want his sons involved. She states he has 2 daughters that live in [place] that the hospital should call. Sylvia does not understand why she can't be HCPOA. DAYSI HUGHES informed her that the hospital needs signed HCPOA paperwork that is notarized. Sylvia states I have papers that he initialed. DAYSI HUGHES informed her the notary needs to see the patient sign HCPOA papers and then notarize them as a witness to seeing the signature. Sylvia states I believe I have a bank statement that is notarized. DAYSI HUGHES informed Pt it needs to be HCPOA paperwork that is signed and notarized. Sylvia asked for update from pt nurse, DAYSI HUGHES informed her that nurse is in rounds and instructed to call floor back in about 30 minutes. Notified SW of call.
--- NOTE | 2025-05-17 10:13 | CASEMGMT ---
Social Work SW participated in ICU rounds. SW did look in pt's room briefly and in his belongings to see if he has a phone with telephone numbers, no phone seems to be present. Physician would still like to have a family meeting. SW called daughter Josy, message left. SW called daughter Andreia. She is aware pt is here in the hospital. SW explained physician does want to have a meeting w/family. SW explained pt has not completed POA, so at this time if decisions need made it would be all four children together. (SW did make sure Andreia and Josy are both over 18.) Andreia states she does not have numbers for her brothers. (Also she state all four children, Lizandro, Dominic, Andreia and Josy are the children of pt and Sylvia, they are full siblings). SW explained Sylvia can be present for meetings but the decision makers would be the four children equally. Andreia states understanding. She gave SW her aunt's number(Sylvia's sister), Rosario Lama--[phone], as she thought perhaps Rosario would have her brothers' numbers. SW called Rosario, she does not have the numbers. SW will continue to follow, will check w/physician to see if he would like to have a meeting w/the daughters since we cannot reach the sons. They live in [place], [place], so is not clear whether or not they can make it here for a meeting. PIERRE Tobias
--- NOTE | 2025-05-17 14:11 | CASEMGMT ---
Social Work SW spoke w/RN, as per RN, pt's daughters are going to call in to ex- Sylvia later today when Sylvia is visiting, so they can at least see pt via Facetime. SW will continue to follow. Also, as per pt's daughter Andreia, pt and Mary Robertson are no longer together--as per Andreia Mary is leaving the country. Mary had been a contact when pt first started coming to the hospital in August, and had been listed at that time as pt's significant other. ICU Physician and Palliative [employer] had also been updated earlier that pt's daughter called in yesterday, and their numbers are in the chart. PIERRE Tobias
[2025-05-17] MEDS: 0.9% Saline Lock 10 ML Syringe IV (14:36)
--- NOTE | 2025-05-17 15:25 | NURSING ---
This RN took a phone call from Lizandro Wiggins stating that he has not been contacted on his father's stay. This RN informed the patient's son that his phone number was not found in the record nor was it being provided by the patients current contacts. Lizandro's phone number is [phone], his brother Jose's phone number is [phone].
[2025-05-17 15:41] LABS: Anion Gap 13 (5-15); BUN 29 mg/dL (4-19); BUN/Creat Ratio 15.2 RATIO (10-20); Calcium,Total 9.1 mg/dL (7.6-11.0); Carbon Dioxide 15.3 mmol/L (21.0-32.0); Chloride 101 mmol/L (98-108); Estimated Creatinine Clearance 46.21 ml/min (50-250); Glucose 195 mg/dL (70-99); Potassium 5.3 mmol/L (3.3-5.1)
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
--- NOTE | 2025-05-17 16:20 | CASEMGMT ---
SOCIAL WORK NEXT OF KIN FOR PT: Pt has four children: Jose Rosalie: [phone] Lizandro Wiggins: [phone] Nancy Wiggins: [phone] Josy Wiggins: [phone] IF any decisions need made, all four children would need to make decisions together. The daughters are in [employer] [facility] [facility] and the sons are in [facility]. PIERRE Tobias
--- NOTE | 2025-05-17 16:25 | CM.UR ---
SOCIAL WORK NEXT OF KIN FOR PT: Pt has four children: Jose Rosalie: [phone] Lizandro Wiggins: [phone] Nancy Wiggins: [phone] Josy Wiggins: [phone] IF any decisions need made, all four children would need to make decisions together. The daughters are in [place] and the sons are in [facility]. PIERRE Tobias
[2025-05-18] VITALS (33 sets, daily range): BP systolic 93–126; BP diastolic 61–82; PULSE 89–100; RESP 11–94; TEMP 36.4–36.9; O2SAT 94–100; BMI 28.9
[2025-05-18 03:44] LABS: Hematocrit 35.0 % (40-54); Hemoglobin 11.7 g/dL (13.0-16.5); Immature Granulocytes Count 0.130 X10^3/uL (0.0-0.0); Mean Corp Hgb Conc 33.4 g/dL (32-36); Mean Corpuscular Volume 88.4 fL (80-94); Mean Platelet Vol. 11.2 fl (6.2-12.0); NRBC Flagged by Analyzer 0 % (0-5); POSITIVE DIFFERENTIAL YES; Platelet Count 168 K/mm3 (150-450); RBC Distribution Width CV 17.0 % (11.6-14.6); RBC Distribution Width SD 54.4 fl (35.1-43.9); Red Blood Count 3.96 M/mm3 (4.6-6.2); White Blood Count 19.0 K/mm3 (4.4-11.0)
[2025-05-18 03:57] LABS: Differential Indicated SCAN CRITERIA MET
[2025-05-18 04:12] LABS: AST(SGOT) 34 U/L (<=37); Alanine Aminotransfer ALT/SGPT 24 U/L (<=46); Albumin, Serum 2.6 g/dL (3.5-5.0); Alkaline Phosphatase 102 U/L (40-129); Ammonia 150.0 umol/L (16-60); Anion Gap 14 (5-15); BUN 34 mg/dL (4-19); BUN/Creat Ratio 16.8 RATIO (10-20); Calcium,Total 8.8 mg/dL (7.6-11.0); Carbon Dioxide 15.1 mmol/L (21.0-32.0); Chloride 100 mmol/L (98-108); Estimated Creatinine Clearance 42.70 ml/min (50-250); Globulin 3.2 g/dL (2.2-4.2); Glucose 174 mg/dL (70-99); Potassium 4.9 mmol/L (3.3-5.1)
[2025-05-18] MEDS: 0.9% Saline Lock 10 ML Syringe IV ×3 (04:26→21:35)
[2025-05-18 05:11] LABS: Anisocytosis 1+; Differential Comment SCANNED; Polychromasia 1+
--- NOTE | 2025-05-18 07:22 | PN.CC_ITS ---
Assessment & Plan Assessment/Plan (1) Acute hepatic encephalopathy: PLAN: Plan RECOMMENDATIONS: 1. Continue assist-control mode of mechanical ventilation. Wean FiO2 and PEEP as tolerated. 2. Continue lactulose and rifaximin. 3. Continue PPI therapy. 4. Continue to monitor blood sugars to maintain euglycemia. 5. Continue to hold all sedation and obtain follow-up ABG. 6. Set up goals of care meeting with the patient's sons and daughters. 7. Obtain gastroenterology consultation. 8. Continue PPI therapy. 9. Monitor ammonia level daily. IMPRESSIONS: 1. Acute hypoxemic respiratory failure The patient was intubated primarily for airway protection in the setting of altered mental status. The patient will be maintained on assist-control mode of mechanical ventilation, with a goal to wean FiO2 and PEEP to maintain saturations at or above 90%. I would recommend holding sedation for now. Once the patient's encephalopathy has improved, we will proceed with spontaneous awakening and breathing trials. Ultimately, until the patient's ammonia level improves, it is unlikely that he will be able to be extubated. 2. Acute encephalopathy Most likely multifactorial with hepatic encephalopathy in the setting of decompensated cirrhosis contributing along with hypoglycemia. Will plan to continue aggressive medical management of the patient's hepatic encephalopathy with lactulose and continue to monitor ammonia level for improvement. Blood sugars will be monitored accordingly. Will obtain gastroenterology consultation to help assist with medical management. 3. History of BOYER cirrhosis with frequent hospitalizations The patient has a documented history of medical noncompliance leading to decompensation in his cirrhosis and subsequent hepatic encephalopathy and need for hospitalization. The patient is apparently been declined for transplantation at [facility] in the past. In order to be referred to an alternative transplant center, the patient would need to be referred by his PCP. However, the patient has never been able to stay out of the hospital long enough to accomplish this goal. Accordingly, palliative care medicine is currently following. We are attempting to reach the patient's next of kin to set up a goals of care meeting. The patient does seem hospice appropriate from my perspective. 4. History of anemia/thrombocytopenia/diabetes mellitus/GERD/obstructive sleep apnea Complicates care, management, recovery and prognosis. Continue PPI therapy as ordered. Continue supportive care as outlined above. TIME: 37 minutes of critical care time, independent of procedures, was spent addressing the patient's acute hypoxemic respiratory failure, acute encephalopathy, decompensated Boyer cirrhosis, review of all data and collaboration with the care team. Subjective Subjective The patient was seen and examined at the bedside this morning. Events from the last 24 hours have been reviewed. The patient is currently afebrile, hemodynamically stable and maintaining appropriate oxygen saturations on assist- control mode of mechanical ventilation with an FiO2 requirement of 30% and PEEP of 5. The patient has been off of all forms of sedation since yesterday. Despite this, he is still significantly encephalopathic this morning. He has yet to have a bowel movement and his ammonia level remains elevated. White blood cell count has risen to 19,000. Hemoglobin and platelet count are stable. Bicarbonate was noted to be 15 with a BUN of 34 and creatinine of 2.04. Total bilirubin is elevated at 2.49. Ammonia level is elevated at 150. Objective Data Objective Data The patient's most recent lab work, culture data and imaging studies have all been personally reviewed. Sputum culture is pending. Vital Signs: Vital Signs Temp Pulse Resp BP Pulse Ox O2 Del Method FiO2 98.4 F 91 15 102/71 97 Mechanical Ventilator 30 05/18/25 07:00 05/18/25 07:15 05/18/25 07:15 05/18/25 07:00 05/18/25 07:15 05/18/25 07:15 05/18/25 07:15 Oxygen Delivery Method Mechanical Ventilator Weight: 195 lb 5.273 oz Body Mass Index (BMI) 28.9 Intake & Output: Intake and Output for Last 24 Hours 05/16/25 05/17/25 05/18/25 23:59 23:59 23:59 Intake Total 1339.73 / 1355.03 1247.70 / 1247.70 0 / 0 Output Total 435 / 435 815 / 815 200 / 200 Balance 904.73 / 920.03 432.70 / 432.70 -200 / -200 Lab / Micro Data Attestation: I reviewed the patient's lab results. 05/18/25 03:30 05/18/25 03:30 Labs: Laboratory Results - last 24 hr 05/17/25 15:00: Sodium 130 L, Potassium 5.3 H, Chloride 101, Carbon Dioxide 15.3 L, Anion Gap 13, BUN 29 H, Creatinine 1.88 H, Estim Creat Clear Calc 46.21 L, E st GFR (MDRD) Non-Af 41 L, BUN/Creatinine Ratio 15.2, Glucose 195 H, Calcium 9.1 05/18/25 03:30: WBC 19.0 H, RBC 3.96 L, Hgb 11.7 L, Hct 35.0 L, MCV 88.4, MCH 29.5, MCHC 33.4, RDW Std Deviation 54.4 H, RDW Coeff of Francis 17.0 H, Plt Count 168, MPV 11.2, Immature Gran % (Auto) 0.700, Neut % (Auto) 78.1 H, Lymph % (Auto) 8.4 L, Scott % (Auto) 11.3 H, Eos % (Auto) 1.1, Baso % (Auto) 0.4, A bsolute Neuts (auto) 14.9 H, Absolute Lymphs (auto) 1.59, Nucleated RBC % 0, Differential Comment SCANNED, Platelet Estimate ADEQUATE, Plt Morphology Comment CLUMPED, Polychromasia 1+, Anisocytosis 1+, Ovalocytes 2+, Sodium 129 L, Potassium 4.9, Chloride 100, Carbon Dioxide 15.1 L, Anion Gap 14, BUN 34 H, C reatinine 2.04 H, Estim Creat Clear Calc 42.70 L, Est GFR (MDRD) Non-Af 37 L, BUN/Creatinine Ratio 16.8, Glucose 174 H, Calcium 8.8, Total Bilirubin 2.49 H, AST 34, ALT 24, Alkaline Phosphatase 102, Ammonia 150.0 H, Total Protein 5.8 L, Albumin 2.6 L, Globulin 3.2, Albumin/Globulin Ratio 0.8 L Micro: Microbiology 05/15/25 23:35 Sputum, Tracheal Aspirate Gram Stain - Final ABG Data ABG results: ABG 05/17/25 04:49 Specimen Type ART Sample Site L Radial pH 7.41 Bicarbonate Actual 19.5 L Total CO2 20 Base Excess -5 L O2 Saturation 94 L O2 % 30.0 ABG pCO2 30.5 L ABG pO2 67 L Ulices Test N/A Respiration Rate 12 O2 Delivery Device Adult Vent Vent Mode AC Tidal Volume 500.0 POC PEEP 5 Radiography Diagnostic Testing: Radiology Impression Brain CT 05/15/25 16:35 IMPRESSION: No acute intracranial process. Reading Location: [facility] X-Ray 05/15/25 19:40 IMPRESSION: 1. Cardiomegaly with mild congestion. 2. Enteric tube is in the stomach. Reading Location: [id number] Chest X-Ray 05/16/25 05:10 IMPRESSION: Tubes and lines in position. [facility] Rhythm Strip Rhythm Strip: Sinus Rhythm Rate: 82 Physical Exam Const Constitutional Narrative: Intubated, sedated and mechanically ventilated. General Appearance: ill appearing Positive for chronically HEENT normocephalic and head/scalp atraumatic Mouth: endotracheal tube in place and OG tube in place Eyes EOMs intact bilaterally and conjunctivae normal Neck supple General: trachea midline Resp normal respiratory effort Auscultation: Negative for rales, rhonchi or wheezes Cardio regular rate and regular rhythm GI soft to palpation and non-tender Extremity no clubbing, cyanosis or edema Skin no rashes or lesions noted Neuro Neuro Narrative: Currently off of sedation. Minimally responsive to verbal stimulation. Charges/Coding Procedures Hospitalists Procedures: [id number] Critical Care 1st Hr
--- NOTE | 2025-05-18 07:22 | PCM.PN.HOSP ---
Reason for Visit Chief Complaint: Altered mental status Subjective Subjective Patient seen off sedation, remains on the vent. Per nursing staff has yet to have a bowel movement for lactulose dose. Potassium still remains elevated Objective Data Objective Data Vital Signs: Vital Signs Temp Pulse Resp BP Pulse Ox O2 Del Method FiO2 98.4 F 91 15 102/71 97 Mechanical Ventilator 30 05/18/25 07:00 05/18/25 07:15 05/18/25 07:15 05/18/25 07:00 05/18/25 07:15 05/18/25 07:15 05/18/25 07:15 Oxygen Delivery Method Mechanical Ventilator Weight: 88.6 kg Body Mass Index (BMI) 28.9 Intake & Output: Intake and Output for Last 24 Hours 05/16/25 05/17/25 05/18/25 23:59 23:59 23:59 Intake Total 1339.73 / 1355.03 1247.70 / 1247.70 0 / 0 Output Total 435 / 435 815 / 815 200 / 200 Balance 904.73 / 920.03 432.70 / 432.70 -200 / -200 Lab / Micro Data 05/18/25 03:30 05/18/25 03:30 Labs: Laboratory Results - last 24 hr 05/17/25 15:00: Sodium 130 L, Potassium 5.3 H, Chloride 101, Carbon Dioxide 15.3 L, Anion Gap 13, BUN 29 H, Creatinine 1.88 H, Estim Creat Clear Calc 46.21 L, Est GFR (MDRD) Non-Af 41 L, BUN/Creatinine Ratio 15.2, Glucose 195 H, Calcium 9.1 05/18/25 03:30: WBC 19.0 H, RBC 3.96 L, Hgb 11.7 L, Hct 35.0 L, MCV 88.4, MCH 29.5, MCHC 33.4, RDW Std Deviation 54.4 H, RDW Coeff of Francis 17.0 H, Plt Count 168, MPV 11.2, Immature Gran % (Auto) 0.700, Neut % (Auto) 78.1 H, Lymph % (Auto) 8.4 L, [place] % (Auto) 11.3 H, Eos % (Auto) 1.1, Baso % (Auto) 0.4, Absolute Neuts (auto) 14.9 H, Absolute Lymphs (auto) 1.59, Nucleated RBC % 0, Differential Comment SCANNED, Platelet Estimate ADEQUATE, Plt Morphology Comment CLUMPED, Polychromasia 1+, Anisocytosis 1+, Ovalocytes 2+, Sodium 129 L, Potassium 4.9, Chloride 100, Carbon Dioxide 15.1 L, Anion Gap 14, BUN 34 H, Creatinine 2.04 H, Estim Creat Clear Calc 42.70 L, Est GFR (MDRD) Non-Af 37 L, BUN/Creatinine Ratio 16.8, Glucose 174 H, Calcium 8.8, Total Bilirubin 2.49 H, AST 34, ALT 24, Alkaline Phosphatase 102, Ammonia 150.0 H, Total Protein 5.8 L, Albumin 2.6 L, Globulin 3.2, Albumin/Globulin Ratio 0.8 L Micro: Microbiology 05/15/25 23:35 Sputum, Tracheal Aspirate Gram Stain - Final Rhythm Strip Rhythm Strip: Sinus Rhythm Rate: 82 Physical Exam Narrative GENERAL: Awake underwent HEENT: Atraumatic; normocephalic EYES; Anicteric, Normal Conjunctiva NECK; supple, normal thyroid, RESPIRATORY: Diminished to auscultation CARDIOVASCULAR: Regular S1 S2, GI: soft, normoactive bowel sounds, : No Renal angle tenderness; EXTREMITIES: No edema, no clubbing, MUSCULOSKELETAL: no muscle wasting NEURO: Awake on the vent unable to assess SKIN: No rash Assessment & Plan Assessment/Plan (1) Acute hepatic encephalopathy: PLAN: Plan Patient is a 59-year-old gentleman with history of cirrhosis of the liver with multiple admissions presented with altered mental status. He had apparently not been compliant with his lactulose. Patient was felt not to be protecting his airway necessitating patient being intubated in the ED and subsequently admitted to the intensive care unit for further management next 1. Acute hepatic encephalopathy with significant hyperammonemia ? Secondary to noncompliance with therapy. Patient was found not to be protecting his airway on admission necessitating patient being intubated and admitted to the intensive care unit ? 05/17/2020 patient is currently awake on the vent undergoing weaning trial ? 05/18/2025; patient currently is off sedation per nursing staff patient is noted to have a bowel movement increase patient lactulose 20 g every 4 hours 2. Acute hypoxic respiratory failure Per stated by patient significant encephalopathy patient was intubated in the ED prior to patient being admitted subsequently admitted to the intensive care unit Vent management deferred to pulmonary/intensive care ? 05/17/2025; weaning trial this a.m. ?05/18/2025; patient remains on the vent but currently off sedation, decision to wean patient off the vent deferred to fish receiver 3. Cirrhosis of the liver ? Secondary to nonalcoholic fatty liver disease patient is on rifaximin, Aldactone as well as furosemide at home plan is to resume following patient extubation 4. Anemia ? Secondary to chronic disorder monitoring H&H and transfuse if patient becomes symptomatic or hemoglobin falls below 7 5. Thrombocytopenia ? Chronic secondary to patient chronic liver disease will monitor with daily CBC with differential 6. Diabetes mellitus type II -patient's oral hypoglycemics held. Placed on long acting insulin, Accu-Cheks a.c. and at bedtime and covered with sliding scale insulin 7. History of extensive venous thrombosis - Patient was treated with Lovenox 8. GERD ? Patient is on PPI 9. Obstructive sleep apnea ? Patient is on CPAP at night ? Plan is to resume once patient is weaned off the vent 10. DVT prophylaxis ? Subcu Lovenox 11. Hyperkalemia ? Ordered 30 g of Kayexalate with repeat potassium levels ordered for now ? 05/18/2025; patient potassium levels remain elevated at 5.3 once patient starts having 12. Acute renal failure with high suspicion for hepatorenal syndrome ? Consult placed to nephrology Time spent in the patient's overall evaluation,decision-making process, review of diagnostic data, adjustment of management, discussion with other providers, nursing nursing and ancillary staff involved in patient's care documentation, 50 Minutes Charges/Coding Visit Charges Inpatient E&M: 88286 [facility] L3
[2025-05-18] MEDS: Pantoprazole Sodium 40 MG in 0.9% Normal Saline (100mL MB+) 100 ML 300 MG IV ×2 (07:57→21:40)
[2025-05-18] MEDS: 0.9% Normal Saline (250mL Bag) 250 ML 15 ML IV ×2 (08:04→21:35)
[2025-05-18 08:22] LABS: Prothrombin Time (Protime)PT. 20.9 SECONDS (11.7-14.9)
[2025-05-18 08:23] LABS: Partial Thromboplast Time 42.7 Seconds (24.1-36.2)
[2025-05-18 09:24] LABS: FI02 30.0; PEEP 5; RR 12; SITE L Radial; VBG BASE EXCESS -7 mmol/L (-1.0-3.5); VBG PO2 90 mmHg (25-40); VBG SO2 97 % (50-70); VBG TCO2 18 mmol/L (23-33)
--- NOTE | 2025-05-18 09:26 | CASEMGMT ---
Addendum entered by Judi Alegre 05/18/25 15:11: Social Work- JEANNINE called Nancy again and was able to apeak with her. Nancy reports that tomorrow at noon works well for her and she will plan for SW to call for care conference. JEANNINE again called Josy and left a voicemail. JEANNINE remains available to follow. JANETTE Valladares Original Note: Social Work- SW participated in interdisciplinary rounds. Bright Cutter would like family meeting to discuss goals of care. JEANNINE called Jose, pt son, who reports that tomorrow at noon, he and brother Lizandro (who lives with him) would be available by phone. JEANNINE called Nancy and Josy and left messages requesting a return call to confirm tomorrow at noon will work for them to meet by phone. JEANNINE updated assistant professor of spanish. JEANNINE remains available to follow. JANETTE Valladares
--- NOTE | 2025-05-18 09:39 | PCM.CONS.R ---
Assessment & Plan Assessment/Plan (1) ISABEL (acute kidney injury): (2) Acute hepatic encephalopathy: PLAN: Plan This is a 59-year-old male who presented to the emergency room with altered mental status changes, he has past medical history significant for ABBY and BOYER cirrhosis, admitted to hospital for acute hepatic encephalopathy, intubated in the emergency room and admitted to ICU. Nephrology consulted for ISABEL. Baseline creatinine has been ~1 mg/dL though patient has had multiple episodes of fluctuating serum creatinine trends over the past year. Patient has never required any renal placement therapy. Last admission from May 06 to May 09 creatinine peak 1.8 and by time of hospital discharge creatinine 1.29. For this admission on May 15 creatinine 1.32 and today creatinine to 2.04 mg/dL, K+ 4.9, bicarb 15, sodium 129. Urine output around 500 mL yesterday, for today urine output around 100 mL. Initially in the emergency room patient was significantly hypotensive however blood pressures have improved. He is not taking anything oral, medication is through OG. Last CXR no infiltrate or consolidation, no effusion. CT during last admission on May 06: liver cirrhosis, no ascites, large staghorn stones in left kidney unchanged, left sided double-J catheter, no right hydro. Back in August 2024 patient was noted to have a left staghorn calculus and underwent cystoscopy and left stent placement per Dr. Rascon. Palliative care team consulted to assist with goals of care, family meeting tomorrow. Nonoliguric ISABEL likely prerenal from history of Boyer cirrhosis and also from hemodynamics with poor renal perfusion with significant hypotension. Patient is not on any IV pressors, bps have improved. There is no acute indication for renal placement therapy. Patient is nonoliguric. Volume status appears compensated, no consolidation noted on last chest x-ray and no ascites per last CT. We will give a dose of albumin today. Aldactone and Lasix currently on hold. Thank you for allowing us participate in the care of Mr. Wiggins, further orders forthcoming as hospitalization evolves. Assessment and plan reviewed with Dr. Khan. HPI Consult Data Date of Consult: 05/18/25 HPI Narrative HPI Narrative: FRANKLIN WIGGINS, is a 59 M who presented to the emergency room on May 15 for acute alteration in mental status. Admitted for acute hepatic encephalopathy. Patient was intubated in the emergency room and admitted to ICU. Patient has past medical history significant for Boyer cirrhosis with episodes of acute hepatic encephalopathy admitted to the hospital multiple times (almost monthly) over the past year, last admission was from May 06 to May 09 for abdominal pain, nausea vomiting and concern for hepatic encephalopathy. For this admission ammonia level in ER 143, lactic acid 2.2, CT brain was unremarkable. Nephrology consulted for acute kidney injury. Patient is known to our service as he developed acute kidney injury in August 2024, presumably Boyer related, fortunately patient did not require any renal replacement therapy. Patient is intubated. Information gathered from nursing staff and chart. [facility] Medical History Diffuse abdominal pain Acute hepatic encephalopathy Hyperammonemia Elevated liver enzymes Cirrhosis of liver with ascites Decompensated cirrhosis History of diabetes mellitus Chronic anemia VRE (vancomycin resistant enterococcus) culture positive Spinal stenosis, lumbar region with neurogenic claudication Umbilical hernia Chronic hyponatremia Weakness Diarrhea Sepsis Acidosis, lactic Acute hypotension Acute UTI Chronic hypotension Obesity (BMI 30-39.9) Chronic back pain ISABEL (acute kidney injury) Hypotension Hyperbilirubinemia 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) HLD (hyperlipidemia) HTN (hypertension) Thrombocytopenia Chronic anemia Former tobacco use Diabetes mellitus, type 2 ABBY on CPAP Back pain Home Medications ?Medication ?Instructions ?Recorded ?Last Taken ?Type acetaminophen 500 mg tablet 1,000 mg PO Q8 PRN fever or pain 10/28/24 Unknown History cyclobenzaprine 10 mg tablet 10 mg PO QHS muscle relaxer 01/02/25 02/15/25 History pen needle, diabetic 31 gauge x #1,200 ea 01/31/25 Unknown Rx 12/17 (Pen Needle) insulin glargine-yfgn 100 unit/mL 30 unit subcut QHS blood glucose 03/10/25 Unknown History (3 mL) subcutaneous pen insulin lispro 100 unit/mL 20 unit subcut TIDAC diabetes 04/07/25 Unknown History subcutaneous pen (Humalog KwikPen (U-100) Insulin) metformin 500 mg tablet 500 mg PO QHS blood glucose 04/07/25 Unknown History oxycodone 5 mg tablet 5 mg PO TID PRN PRN dyspnea 04/07/25 Unknown History sodium bicarbonate 650 mg tablet 650 mg PO BID supplement 04/07/25 Unknown History ascorbic acid (vitamin C) 500 mg 500 mg PO BID supplement #60 tabs 04/10/25 05/06/25 Rx tablet carvedilol 3.125 mg tablet 6.25 mg (2 x 3.125 mg) PO BID BP 1 04/10/25 05/06/25 Rx month #60 tabs ferrous sulfate 325 mg (65 mg 325 mg PO QODAY supplement #30 tabs 04/10/25 Unknown Rx iron) tablet furosemide 40 mg tablet 40 mg PO DAILY diuresis 30 days 04/10/25 Unknown Rx #30 tabs lactulose 10 gram/15 mL oral 10 g (15 mL) PO 4XD liver 30 days 04/10/25 Unknown Rx solution #1 mL spironolactone 100 mg tablet 150 mg (1.5 x 100 mg) PO DAILY BP 04/10/25 Unknown Rx 30 days #45 tabs insulin lispro 100 unit/mL subcut blood glucose 04/18/25 Unknown History subcutaneous half-unit pen aluminum-mag hydroxide-simethicone 5 ml PO Q6H PRN indigestion #3,000 05/09/25 Unknown Rx 400 mg-400 mg-40 mg/5 mL oral susp mL (Mylanta Maximum Strength) prochlorperazine maleate 5 mg 5 mg PO TID PRN nausea and 05/09/25 Unknown Rx tablet (Compazine) vomiting #90 tabs Allergy/AdvReac Type Severity Reaction Status Date / Time No Known Allergies Allergy Verified 05/15/25 15:46 Family History Mother Heart disease Hypertension CAD (coronary artery disease) Myocardial infarction Father Hypertension Heart disease Heart failure Surgical History History of tonsillectomy and adenoidectomy Social History household members: other details: Lives with his ex /her . Smoking Status: Former smoker how long ago did patient quit smoking: Quit Fall 2023, smoked 1.5 ppd since teen until quit. alcohol intake: never substance use type: does not use additional social history: EX and a friend help with his care. ROS ROS Narrative Unable to obtain Physical Exam Narrative Intubated, no apparent distress S1 and S2, RRR Clear breath sounds anteriorly Abdomen soft, nondistended No edema Indwelling [place] with clear yellow urine Lab / Micro Data 05/18/25 03:30 05/18/25 03:30 Labs: Laboratory Results - last 24 hr 05/17/25 15:00: Sodium 130 L, Potassium 5.3 H, Chloride 101, Carbon Dioxide 15.3 L, Anion Gap 13, BUN 29 H, Creatinine 1.88 H, Estim Creat Clear Calc 46.21 L, Est GFR (MDRD) Non-Af 41 L, BUN/Creatinine Ratio 15.2, Glucose 195 H, Calcium 9.1 05/18/25 03:30: WBC 19.0 H, RBC 3.96 L, Hgb 11.7 L, Hct 35.0 L, MCV 88.4, MCH 29.5, MCHC 33.4, RDW Std Deviation 54.4 H, RDW Coeff of Francis 17.0 H, Plt Count 168, MPV 11.2, Immature Gran % (Auto) 0.700, Neut % (Auto) 78.1 H, Lymph % (Auto) 8.4 L, [place] % (Auto) 11.3 H, Eos % (Auto) 1.1, Baso % (Auto) 0.4, Absolute Neuts (auto) 14.9 H, Absolute Lymphs (auto) 1.59, Nucleated RBC % 0, Differential Comment SCANNED, Platelet Estimate ADEQUATE, Plt Morphology Comment CLUMPED, Polychromasia 1+, Anisocytosis 1+, Ovalocytes 2+, Sodium 129 L, Potassium 4.9, Chloride 100, Carbon Dioxide 15.1 L, Anion Gap 14, BUN 34 H, Creatinine 2.04 H, Estim Creat Clear Calc 42.70 L, Est GFR (MDRD) Non-Af 37 L, BUN/Creatinine Ratio 16.8, Glucose 174 H, Calcium 8.8, Total Bilirubin 2.49 H, AST 34, ALT 24, Alkaline Phosphatase 102, Ammonia 150.0 H, Total Protein 5.8 L, Albumin 2.6 L, Globulin 3.2, Albumin/Globulin Ratio 0.8 L 05/18/25 07:50: PT 20.9 H, INR 1.8, APTT 42.7 H Micro: Microbiology 05/15/25 23:35 Sputum, Tracheal Aspirate Gram Stain - Final 05/15/25 23:35 Sputum, Tracheal Aspirate Respiratory Culture - Preliminary GNR lactose sheet rock taper helper ABG Data ABG results: ABG 05/18/25 09:21 Specimen Type TRAMAINE Sample Site L Radial O2 % 30.0 VBG pH 7.42 VBG pO2 90 H VBG HCO3 18 L VBG Total CO2 18 L VBG O2 Sat (Calc) 97 H VBG Base Excess -7 L POC Mix VBG pCO2 Pt Tmp 27.1 L Respiration Rate 12 O2 Delivery Device Not entered Tidal Volume 500.0 POC PEEP 5 Rhythm Strip Rhythm Strip: Sinus Rhythm Rate: 82
--- NOTE | 2025-05-18 10:12 | EX.PCM.CON.G ---
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 difficile colitis presented to the emergency department on May 15, 2025 with altered mental status. He was recently hospitalized May 06-2024 for UTI and hyperammonemia secondary to lactulose noncompliance. He improved with antibiotics and lactulose, and was discharged home. Per his ex-, he again became noncompliant with lactulose at home due to perceived worsening of abdominal pain, nausea, and vomiting. On arrival to the ED, he was afebrile, mildly hypotensive (90s/50s), and in normal sinus rhythm. He was unable to answer questions appropriately, mumbling incoherently. CT brain was unremarkable. Given worsening mentation and inability to protect his airway, he was intubated in the ED and admitted to the ICU. He remains intubated on AC 12, FiO2 30%, PEEP 5. Sedation has been off for >24 hours. He is responsive only to painful stimuli, without visible jaundice. Del Castillo catheter draining dark tea colored urine. He remains afebrile but has a known left staghorn calculus with prior stent placement, representing a potential infectious source. Labs: WBC 6.9 (05/09/2025) -> 8.7 (on presentation) -> 14 (05/17) -> 19 (today) Hgb 11.7, PLT 168, INR 1.8, PT 20.9, aPTT 42.7 Sodium 129, potassium 4.9 (down from 5.6 after Kayexalate), BUN 34 creatinine 2.04 (GFR 37) Glucose 174, T. bili 2.49, AST 34, ALT 24, alkaline phosphatase 102, albumin 2.6 Ammonia 150 (up from 128 on 05/09) MELD: 23 MELD-Na: 27 MELD 3.0: 29 (Based 90-day survival probability: 76.53 %) Pertinent Medical History: November 2024: Admitted to ICU with severe sepsis, initiated on IV vancomycin and subsequently tested positive for C. difficile colitis, treated with p.o. vancomycin and Flagyl. November 2024 underwent liver transplant evaluation. EGD at that time revealed esophageal Mary, treated accordingly. Ultimately not considered a liver transplant candidate due to lack of adequate social support EGD 11/14/2024 [facility] Impression: - Esophageal plaques were found, consistent with candidiasis. Biopsied. - A large amount of food (residue) in the stomach. - Moderate Portal hypertensive gastropathy. - No gross lesions in the entire examined duodenum. Latest Ref Rng 11/13/2024 HIV 12 Combo (Ag/Ab) Nonreactive Nonreactive HIV 1/2 Ab -- HIV Interpretation -- Syphilis Treponemal Screen Nonreactive Nonreactive Syphilis Interpretation Cannot exclude recent Treponemal infection if specimen collected within 7-10 days after appearance of suspect lesions or 2-3 weeks after an exposure. Clinical correlation is required. Hep B Surface Ab, Qual Negative Hep B Surf Ab Quant mIU/mL <8.00 Hepatitis A IgG Negative Hepatitis A IgG Negative Hep C Antibody IA Negative Negative Hep B Surface Ag Negative Negative Hep B Core Ab, Total Negative Negative [facility] Medical History (Updated 05/18/25 @ 13:41 by Stefani Ca PROPERTY CONSULTANT-C) Liver cirrhosis secondary to HARRIS (nonalcoholic steatohepatitis) History of diabetes mellitus History of cirrhosis Diffuse abdominal pain Acute hepatic encephalopathy Hyperammonemia Elevated liver enzymes Cirrhosis of liver with ascites Decompensated cirrhosis History of diabetes mellitus Chronic anemia VRE (vancomycin resistant enterococcus) culture positive Spinal stenosis, lumbar region with neurogenic claudication Umbilical hernia Chronic hyponatremia Weakness Diarrhea Sepsis Acidosis, lactic Acute hypotension Acute UTI Chronic hypotension Obesity (BMI 30-39.9) Chronic back pain ISABEL (acute kidney injury) Hypotension Hyperbilirubinemia HLD (hyperlipidemia) HTN (hypertension) Thrombocytopenia Chronic anemia Former tobacco use Diabetes mellitus, type 2 ABBY on CPAP Back pain Medical History unable to obtain Home Medications ?Medication ?Instructions ?Recorded ?Last Taken ?Type acetaminophen 500 mg tablet 1,000 mg PO Q8 PRN fever or pain 10/28/24 Unknown History cyclobenzaprine 10 mg tablet 10 mg PO QHS muscle relaxer 01/02/25 02/15/25 History pen needle, diabetic 31 gauge x #1,200 ea 01/31/25 Unknown Rx 12/17 (Pen Needle) insulin glargine-yfgn 100 unit/mL 30 unit subcut QHS blood glucose 03/10/25 Unknown History (3 mL) subcutaneous pen insulin lispro 100 unit/mL 20 unit subcut TIDAC diabetes 04/07/25 Unknown History subcutaneous pen (Humalog KwikPen (U-100) Insulin) metformin 500 mg tablet 500 mg PO QHS blood glucose 04/07/25 Unknown History oxycodone 5 mg tablet 5 mg PO TID PRN PRN dyspnea 04/07/25 Unknown History sodium bicarbonate 650 mg tablet 650 mg PO BID supplement 04/07/25 Unknown History ascorbic acid (vitamin C) 500 mg 500 mg PO BID supplement #60 tabs 04/10/25 05/06/25 Rx tablet carvedilol 3.125 mg tablet 6.25 mg (2 x 3.125 mg) PO BID BP 1 04/10/25 05/06/25 Rx month #60 tabs ferrous sulfate 325 mg (65 mg 325 mg PO QODAY supplement #30 tabs 04/10/25 Unknown Rx iron) tablet furosemide 40 mg tablet 40 mg PO DAILY diuresis 30 days 04/10/25 Unknown Rx #30 tabs lactulose 10 gram/15 mL oral 10 g (15 mL) PO 4XD liver 30 days 04/10/25 Unknown Rx solution #1 mL spironolactone 100 mg tablet 150 mg (1.5 x 100 mg) PO DAILY BP 04/10/25 Unknown Rx 30 days #45 tabs insulin lispro 100 unit/mL subcut blood glucose 04/18/25 Unknown History subcutaneous half-unit pen aluminum-mag hydroxide-simethicone 5 ml PO Q6H PRN indigestion #3,000 05/09/25 Unknown Rx 400 mg-400 mg-40 mg/5 mL oral susp mL (Mylanta Maximum Strength) prochlorperazine maleate 5 mg 5 mg PO TID PRN nausea and 05/09/25 Unknown Rx tablet (Compazine) vomiting #90 tabs Allergy/AdvReac Type Severity Reaction Status Date / Time No Known Allergies Allergy Verified 05/15/25 15:46 Family History Mother Heart disease Hypertension CAD (coronary artery disease) Myocardial infarction Father Hypertension Heart disease Heart failure Family History unable to obtain Surgical History History of tonsillectomy and adenoidectomy Surgical History unable to obtain Social History household members: other details: Lives with his ex /her . Smoking Status: Former smoker how long ago did patient quit smoking: Quit Fall 2023, smoked 1.5 ppd since teen until quit. alcohol intake: never substance use type: does not use additional social history: EX and a friend help with his care. ROS Review of Systems ROS Unobtainable: due to mental status Physical Exam Narrative Patient is intubated with ETT in place and only responds to painful stimuli. Ventilator settings: AC 12, FiO2 30%, Peep 5. Del Castillo to SD with tea colored urinary output. Bilateral soft wrist restraints in place with skin intact and good distal pulses. Const no apparent distress Resp Effort and Inspection: symmetric chest movement Auscultation: clear to auscultation bilaterally Cardio regular rate and regular rhythm GI GI Narrative: ABD soft, non-distended, no s/s of pain with palpation, no ascites Extremity Extremity Narrative: edema BUE (primarily in the hands, trace BLE edema Medical Records Data Attestation: I reviewed the patient's medical records Lab / Micro Data Attestation: I reviewed the patient's lab results. 05/18/25 03:30 05/18/25 03:30 Labs: Laboratory Results - last 24 hr 05/17/25 15:00: Sodium 130 L, Potassium 5.3 H, Chloride 101, Carbon Dioxide 15.3 L, Anion Gap 13, BUN 29 H, Creatinine 1.88 H, Estim Creat Clear Calc 46.21 L, Est GFR (MDRD) Non-Af 41 L, BUN/Creatinine Ratio 15.2, Glucose 195 H, Calcium 9.1 05/18/25 03:30: WBC 19.0 H, RBC 3.96 L, Hgb 11.7 L, Hct 35.0 L, MCV 88.4, MCH 29.5, MCHC 33.4, RDW Std Deviation 54.4 H, RDW Coeff of Francis 17.0 H, Plt Count 168, MPV 11.2, Immature Gran % (Auto) 0.700, Neut % (Auto) 78.1 H, Lymph % (Auto) 8.4 L, Ste[place]s % (Auto) 11.3 H, Eos % (Auto) 1.1, Baso % (Auto) 0.4, Absolute Neuts (auto) 14.9 H, Absolute Lymphs (auto) 1.59, Nucleated RBC % 0, Differential Comment SCANNED, Platelet Estimate ADEQUATE, Plt Morphology Comment CLUMPED, Polychromasia 1+, Anisocytosis 1+, Ovalocytes 2+, Sodium 129 L, Potassium 4.9, Chloride 100, Carbon Dioxide 15.1 L, Anion Gap 14, BUN 34 H, Creatinine 2.04 H, Estim Creat Clear Calc 42.70 L, Est GFR (MDRD) Non-Af 37 L, BUN/Creatinine Ratio 16.8, Glucose 174 H, Calcium 8.8, Total Bilirubin 2.49 H, AST 34, ALT 24, Alkaline Phosphatase 102, Ammonia 150.0 H, Total Protein 5.8 L, Albumin 2.6 L, Globulin 3.2, Albumin/Globulin Ratio 0.8 L 05/18/25 07:50: PT 20.9 H, INR 1.8, APTT 42.7 H Micro: Microbiology 05/15/25 23:35 Sputum, Tracheal Aspirate Gram Stain - Final 05/15/25 23:35 Sputum, Tracheal Aspirate Respiratory Culture - 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 ABG Data ABG results: ABG 05/18/25 09:21 Specimen Type ART Sample Site L Radial O2 % 30.0 VBG pH 7.42 VBG pO2 90 H VBG HCO3 18 L VBG Total CO2 18 L VBG O2 Sat (Calc) 97 H VBG Base Excess -7 L POC Mix VBG pCO2 Pt Tmp 27.1 L Respiration Rate 12 O2 Delivery Device Not entered Tidal Volume 500.0 POC PEEP 5 Rhythm Strip Rhythm Strip: Sinus Rhythm Rate: 82 Assessment & Plan Assessment/Plan (1) Hepatic encephalopathy: (2) Liver cirrhosis secondary to HARRIS (nonalcoholic steatohepatitis): PLAN: Plan 59y/o male with decompensated 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 His presentation is likely precipitated by lactulose noncompliance as well as a possible infectious process given progressive leukocytosis (WBC 6.9 -> 14 -> 19 despite remaining afebrile. he also demonstrates evidence of ISABEL on CKD (Cr 2.04), mild hyponatremia (Na 129), and mild hyperbilirubinemia (T. bili.2.49). Despite scheduled lactulose and rifaximin, he has not yet had a bowel movement since admission. While his ammonia level is elevated at 150 (previously 128), the absolute value of serum ammonia does not reliably correlate with the severity of hepatic encephalopathy in patients with known cirrhosis. In such individuals, ammonia levels can fluctuate and may remain elevated even when mental status is near baseline. The diagnosis and grading of hepatic encephalopathy remain clinical, based on changes in mental status or precipitating factors, rather than the numeric ammonia level alone. That said, a rising ammonia trend in conjunction with worsening mentation and lack of bowel movements despite lactulose and rifaximin supports that ammonia retention is contributing to his current episode. He remains intubated for airway protection and minimally responsive with sedation discontinued for >24 hours. Given his history of severe sepsis and C. difficile colitis in November 2024, along with a staghorn calculus as a potential nidus of infection, infectious etiology should be strongly considered as a precipitating factor. He was previous evaluated for liver transplantation but was deemed not a candidate due to lack of social support. Overall, his clinical picture is consistent with acute hepatic encephalopathy in the setting of decompensated cirrhosis, multifactorial ISABEL, and possible sepsis secondary to urinary source. - Continue lactulose 4 times daily, titrate to 2-3 soft BMs daily; proceed with SSE as ordered. - Continue rifaximin 550 mg twice daily - Trend ammonia, LFTs, INR, renal function - Obtain repeat UA and cultures; monitor for occult infection - Consider ID and urology consults given leukocytosis and known staghorn calculus - Maintain aspiration precautions, HOB elevated, supportive care Capacity Capacity Assessment Tool Patient lacks Decision Making Capacity: unable to understand, reason and deliberate health related choices: Yes Risk to self and or others?: No Risk of leaving the patient care unit and or hospital?: No
[2025-05-18] MEDS: CHLORHEXIDINE GLUC 2% CLOTH 1 EACH TOWELETTE TOPICAL (10:58)
[2025-05-18] MEDS: Albumin Human 25% (100 mL) 25 GM/100 ML BAG IV ×4 (11:00→21:20)
[2025-05-18] MEDS: Chlorhexidine 15 ML PO ×2 (11:00→21:41)
--- NOTE | 2025-05-18 14:35 | RAD_ITS ---
PROCEDURE: ABDOMEN SINGLE VIEW 05/18/2025 REASON FOR EXAM: CONSTIPATION TECHNIQUE: Procedure Code: RADABD Modality: DX Procedure: ABDOMEN SINGLE VIEW COMPARISON: None FINDINGS: Bowel gas: Moderate amount of fecal material is seen in the colon. Calcifications: Findings suggestive of renal calculi in the lower pole calyx of the left kidney. A nasogastric tube is seen with the tip in the body of the stomach. A catheter is seen within the urinary bladder. Bones: There are degenerative changes of the spine. Other: RAD/Abdomen Single View IMPRESSION: Moderate amount of fecal material is seen in the colon. A left-sided double-J stent catheter is seen. Calcific density seen in the low er pole calyx of the left kidney. Reading Location: [place] [id number]
[2025-05-18] MEDS: Jevity 1.5 1,000 ML 30 ML GT (19:24)
[2025-05-18] MEDS: Electrolyte Solution/Peg's 4000 ML PO (19:29)
[2025-05-19] VITALS (33 sets, daily range): BP systolic 99–127; BP diastolic 51–72; PULSE 99–109; RESP 11–19; TEMP 36.6–37.8; O2SAT 95–99; BMI 29.0
[2025-05-19] MEDS: fentaNYL drip 100 ML 2.5 MCG CONT INF (00:39)
[2025-05-19] MEDS: CHLORHEXIDINE GLUC 2% CLOTH 1 EACH TOWELETTE TOPICAL (00:39)
[2025-05-19] MEDS: 0.9% Saline Lock 10 ML Syringe IV ×2 (00:43→18:03)
[2025-05-19 06:38] LABS: Hematocrit 25.5 % (40-54); Hemoglobin 8.7 g/dL (13.0-16.5); Immature Granulocytes Count 0.050 X10^3/uL (0.0-0.0); Mean Corp Hgb Conc 34.1 g/dL (32-36); Mean Corpuscular Volume 87.3 fL (80-94); Mean Platelet Vol. 11.7 fl (6.2-12.0); NRBC Flagged by Analyzer 0 % (0-5); POSITIVE COUNT YES; Platelet Count 59 K/mm3 (150-450); RBC Distribution Width CV 17.1 % (11.6-14.6); RBC Distribution Width SD 53.1 fl (35.1-43.9); Red Blood Count 2.92 M/mm3 (4.6-6.2); White Blood Count 8.2 K/mm3 (4.4-11.0)
[2025-05-19 06:41] LABS: Differential Indicated SCAN CRITERIA MET
--- NOTE | 2025-05-19 07:07 | PCM.PN.HOSP ---
Reason for Visit Chief Complaint: Altered mental status Subjective Subjective Patient seen still remains on the vent patient had apparently received fentanyl during the night and is barely responsive this a.m. Patient was started on lactulose by Dr. Preston and is having bowel movement. His hemoglobin is down to 8.7. 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 final identification and sensitivities pending Objective Data Objective Data Vital Signs: Vital Signs Temp Pulse Resp BP Pulse Ox O2 Del Method FiO2 98.1 F 102 H 12 107/65 99 Mechanical Ventilator 30 05/19/25 06:00 05/19/25 06:00 05/19/25 06:00 05/19/25 06:00 05/19/25 06:00 05/19/25 06:00 05/19/25 06:00 Oxygen Delivery Method Mechanical Ventilator Weight: 89.1 kg Body Mass Index (BMI) 29.0 Intake & Output: Intake and Output for Last 24 Hours 05/17/25 05/18/25 05/19/25 23:59 23:59 23:59 Intake Total 1247.70 / 1247.70 3139.75 / 3139.75 1.26 / 1.26 Output Total 815 / 815 640 / 640 650 / 650 Balance 432.70 / 432.70 2499.75 / 2499.75 -648.74 / -648.74 Lab / Micro Data 05/19/25 06:20 05/19/25 06:20 Labs: Laboratory Results - last 24 hr 05/18/25 07:50: PT 20.9 H, INR 1.8, APTT 42.7 H 05/18/25 19:35: POC Glucose 153 H 05/19/25 06:20: WBC 8.2, RBC 2.92 L, Hgb 8.7 L, Hct 25.5 L, MCV 87.3, MCH 29.8, MCHC 34.1, RDW Std Deviation 53.1 H, RDW Coeff of Francis 17.1 H, Plt Count 59 L, MPV 11.7, Immature Gran % (Auto) 0.600, Neut % (Auto) 76.5 H, Lymph % (Auto) 10.1 L, [place] % (Auto) 9.7, Eos % (Auto) 2.7, Baso % (Auto) 0.4, Absolute Neuts (auto) 6.3, Absolute Lymphs (auto) 0.83, Nucleated RBC % 0 Micro: Microbiology 05/15/25 23:35 Sputum, Tracheal Aspirate Gram Stain - Final 05/15/25 23:35 Sputum, Tracheal Aspirate Respiratory Culture - Preliminary 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 ABG Data ABG results: ABG 05/18/25 05/18/25 05/18/25 09:21 09:21 09:21 Specimen Type ART Cancelled Sample Site L Radial Cancelled pH Cancelled Bicarbonate Actual Cancelled Total CO2 Cancelled Base Excess Cancelled O2 Saturation Cancelled O2 % 30.0 ABG pCO2 ABG pO2 Ulices Test VBG pH VBG pO2 VBG HCO3 VBG Total CO2 VBG O2 Sat (Calc) VBG Base Excess POC Mix VBG pCO2 Pt Tmp Respiration Rate O2 Delivery Device Liter Flow Minute Volume Vent Mode Inspiratory Time Expiratory Time Tidal Volume Mean Airway Pressure POC PEEP Peak Inspir Pressure POC Pressure Suppt Pressure Control Pressure High Pressure Low Time High Time Low EPAP IPAP Blood Gas Comments Crit Call To/Read Back Blood Gas Notified Whom Blood Gas Notified Time Clinical Comments 05/18/25 05/18/25 05/18/25 09:21 09:21 09:21 Specimen Type Sample Site pH Bicarbonate Actual Total CO2 Base Excess O2 Saturation O2 % Cancelled ABG pCO2 Cancelled ABG pO2 Cancelled Ulices Test Cancelled VBG pH 7.42 VBG pO2 90 H VBG HCO3 18 L VBG Total CO2 18 L VBG O2 Sat (Calc) 97 H VBG Base Excess -7 L POC Mix VBG pCO2 Pt Tmp 27.1 L Respiration Rate 12 Cancelled O2 Delivery Device Not entered Cancelled Liter Flow Cancelled Minute Volume Cancelled Vent Mode Cancelled Inspiratory Time Cancelled Expiratory Time Cancelled Tidal Volume 500.0 Mean Airway Pressure POC PEEP Peak Inspir Pressure POC Pressure Suppt Pressure Control Pressure High Pressure Low Time High Time Low EPAP IPAP Blood Gas Comments Crit Call To/Read Back Blood Gas Notified Whom Blood Gas Notified Time Clinical Comments 05/18/25 05/18/25 09:21 09:21 Specimen Type Sample Site pH Bicarbonate Actual Total CO2 Base Excess O2 Saturation O2 % ABG pCO2 ABG pO2 Ulices Test VBG pH VBG pO2 VBG HCO3 VBG Total CO2 VBG O2 Sat (Calc) VBG Base Excess POC Mix VBG pCO2 Pt Tmp Respiration Rate O2 Delivery Device Liter Flow Minute Volume Vent Mode Inspiratory Time Expiratory Time Tidal Volume Cancelled Mean Airway Pressure Cancelled POC PEEP 5 Cancelled Peak Inspir Pressure Cancelled POC Pressure Suppt Cancelled Pressure Control Cancelled Pressure High Cancelled Pressure Low Cancelled Time High Cancelled Time Low Cancelled EPAP Cancelled IPAP Cancelled Blood Gas Comments Cancelled Crit Call To/Read Back Cancelled Blood Gas Notified Whom Cancelled Blood Gas Notified Time Cancelled Clinical Comments Cancelled Radiography Diagnostic Testing: Radiology Impression KUB X-Ray 05/18/25 14:35 IMPRESSION: Moderate amount of fecal material is seen in the colon. A left-sided double-J stent catheter is seen. Calcific density seen in the lower pole calyx of the left kidney. Reading Location: [place] [id number] Rhythm Strip Rhythm Strip: Sinus Rhythm Rate: 82 Physical Exam Narrative GENERAL: Patient on the vent not following command HEENT: Atraumatic; normocephalic EYES; Anicteric, Normal Conjunctiva NECK; supple, normal thyroid, RESPIRATORY: Diminished to auscultation CARDIOVASCULAR: Regular S1 S2, GI: soft, normoactive bowel sounds, : No Renal angle tenderness; EXTREMITIES: No edema, no clubbing, MUSCULOSKELETAL: no muscle wasting NEURO: Patient on the vent not following commands SKIN: No rash Assessment & Plan Assessment/Plan (1) Acute hepatic encephalopathy: PLAN: Plan Patient is a 59-year-old gentleman with history of cirrhosis of the liver with multiple admissions presented with altered mental status. He had apparently not been compliant with his lactulose. Patient was felt not to be protecting his airway necessitating patient being intubated in the ED and subsequently admitted to the intensive care unit for further management next 1. Acute hepatic encephalopathy with significant hyperammonemia ? Secondary to noncompliance with therapy. Patient was found not to be protecting his airway on admission necessitating patient being intubated and admitted to the intensive care unit ? 05/17/2020 patient is currently awake on the vent undergoing weaning trial ? 05/18/2025; patient currently is off sedation per nursing staff patient is noted to have a bowel movement increase patient lactulose 20 g every 4 hours ? 05/19/2025 patient did not respond to lactulose necessitating patient being started on GoLytely by Dr. Dr. Li. Patient remains on the vent however is not responsive this morning compared to the day prior he had apparently received fentanyl for sedation 2. Acute hypoxic respiratory failure Per stated by patient significant encephalopathy patient was intubated in the ED prior to patient being admitted subsequently admitted to the intensive care unit Vent management deferred to pulmonary/intensive care ? 05/17/2025; weaning trial this a.m. ?05/18/2025; patient remains on the vent but currently off sedation, decision to wean patient off the vent deferred to florist designer ? Stay 2024; patient remains on the vent 3. Cirrhosis of the liver ? Secondary to nonalcoholic fatty liver disease patient is on rifaximin, Aldactone as well as furosemide at home plan is to resume following patient extubation 4. Anemia ? Secondary to chronic disorder monitoring H&H and transfuse if patient becomes symptomatic or hemoglobin falls below 7 5. Thrombocytopenia ? Chronic secondary to patient chronic liver disease will monitor with daily CBC with differential 6. Diabetes mellitus type II -patient's oral hypoglycemics held. Placed on long acting insulin, Accu-Cheks a.c. and at bedtime and covered with sliding scale insulin 7. History of extensive venous thrombosis - Patient was treated with Lovenox 8. GERD ? Patient is on PPI 9. Obstructive sleep apnea ? Patient is on CPAP at night ? Plan is to resume once patient is weaned off the vent 10. DVT prophylaxis ? Subcu Lovenox 11. Hyperkalemia ? Ordered 30 g of Kayexalate with repeat potassium levels ordered for now ? 05/18/2025; patient potassium levels remain elevated at 5.3 ? 05/19/2025; potassium down to 3.7 12. Acute renal failure with high suspicion for hepatorenal syndrome ? Consult placed to nephrology ? 05/19/2025; consult was placed to nephrology no significant change in creatinine level, 1.93 this a.m. 13. Nutrition ? Patient started on tube feed vital AF 1.2, with a goal rate of 60 mL per. Dietitian on consult Time spent in the patient's overall evaluation,decision-making process, review of diagnostic data, adjustment of management, discussion with other providers, nursing nursing and ancillary staff involved in patient's care documentation, 55 Minutes Charges/Coding Visit Charges Inpatient E&M: [id number] [place] [id number]
[2025-05-19 07:09] LABS: AST(SGOT) 29 U/L (<=37); Alanine Aminotransfer ALT/SGPT 15 U/L (<=46); Albumin, Serum 3.4 g/dL (3.5-5.0); Alkaline Phosphatase 67 U/L (40-129); Anion Gap 15 (5-15); BUN 42 mg/dL (4-19); BUN/Creat Ratio 21.5 RATIO (10-20); Calcium,Total 9.1 mg/dL (7.6-11.0); Carbon Dioxide 17.1 mmol/L (21.0-32.0); Chloride 100 mmol/L (98-108); Estimated Creatinine Clearance 45.25 ml/min (50-250); Globulin 2.3 g/dL (2.2-4.2); Glucose 183 mg/dL (70-99); Potassium 3.7 mmol/L (3.3-5.1)
[2025-05-19 07:20] LABS: Ammonia 124.0 umol/L (16-60)
--- NOTE | 2025-05-19 07:29 | PCM.PN.INT ---
Assessment & Plan Assessment/Plan (1) Acute hepatic encephalopathy: PLAN: Plan RECOMMENDATIONS: 1. Continue assist-control mode of mechanical ventilation. Wean FiO2 and PEEP as tolerated. 2. Continue lactulose and rifaximin. 3. Continue PPI therapy. 4. Continue to monitor blood sugars to maintain euglycemia. 5. Continue to hold all sedating medications. 6. Tentative plan for goals of care discussion with the patient's family today. 7. Monitor ammonia level daily. IMPRESSIONS: 1. Acute hypoxemic respiratory failure The patient was intubated primarily for airway protection in the setting of altered mental status. The patient will be maintained on assist-control mode of mechanical ventilation, with a goal to wean FiO2 and PEEP to maintain saturations at or above 90%. I would recommend holding sedation for now. Once the patient's encephalopathy has improved, we will proceed with spontaneous awakening and breathing trials. Ultimately, until the patient's ammonia level improves, it is unlikely that he will be able to be extubated. 2. Acute encephalopathy Most likely multifactorial with hepatic encephalopathy in the setting of decompensated cirrhosis contributing along with hypoglycemia. Will plan to continue aggressive medical management of the patient's hepatic encephalopathy with lactulose and continue to monitor ammonia level for improvement. Blood sugars will be monitored accordingly. Gastroenterology is currently following to assist with medical management. 3. History of HARRIS cirrhosis with frequent hospitalizations The patient has a documented history of medical noncompliance leading to decompensation in his cirrhosis and subsequent hepatic encephalopathy and need for hospitalization. The patient is apparently been declined for transplantation at [facility] in the past. In order to be referred to an alternative transplant center, the patient would need to be referred by his PCP. However, the patient has never been able to stay out of the hospital long enough to accomplish this goal. Accordingly, palliative care medicine is currently following. Tentative plans to have a goals of care discussion with the patient's children later today. The patient does seem hospice appropriate from my perspective. 4. History of anemia/thrombocytopenia/diabetes mellitus/GERD/obstructive sleep apnea Complicates care, management, recovery and prognosis. Continue PPI therapy as ordered. Continue to monitor blood counts daily and transfuse if hemoglobin drops below 7 g/dL. TIME: 33 minutes of critical care time, independent of procedures, was spent addressing the patient's acute hypoxemic respiratory failure, acute encephalopathy, decompensated Ahrris cirrhosis, review of all data and collaboration with the care team. Subjective Subjective The patient was seen and examined at the bedside this morning. Events from the last 24 hours have been reviewed. The patient is currently afebrile, hemodynamically stable and maintaining appropriate oxygen saturations on assist-control mode of mechanical ventilation with an FiO2 requirement of 30% PEEP of 5. The patient still remains significantly encephalopathic. However, there has been slight interval improvement in his ammonia level. The patient is documented to be overall net +4.3 L for the hospitalization. White blood cell count is normal. Hemoglobin has dropped to 8.7 g/dL. Platelet count has dropped to 59,000. Creatinine this morning was noted to be 1.93. Total bilirubin is elevated at 2.92 with an ammonia level of 124. Objective Data Objective Data The patient's most recent lab work, culture data and imaging studies have all been personally reviewed. Vital Signs: Vital Signs Temp Pulse Resp BP Pulse Ox O2 Del Method FiO2 98.1 F 102 H 12 107/65 99 Mechanical Ventilator 30 05/19/25 06:00 05/19/25 06:00 05/19/25 06:00 05/19/25 06:00 05/19/25 06:00 05/19/25 06:00 05/19/25 06:00 Oxygen Delivery Method Mechanical Ventilator Weight: 196 lb 6.91 oz Body Mass Index (BMI) 29.0 Intake & Output: Intake and Output for Last 24 Hours 05/17/25 05/18/25 05/19/25 23:59 23:59 23:59 Intake Total 1247.70 / 1247.70 3139.75 / 3139.75 1.26 / 1.26 Output Total 815 / 815 640 / 640 650 / 650 Balance 432.70 / 432.70 2499.75 / 2499.75 -648.74 / -648.74 Lab / Micro Data Attestation: I reviewed the patient's lab results. 05/19/25 06:20 05/19/25 06:20 Labs: Laboratory Results - last 24 hr 05/18/25 07:50: PT 20.9 H, INR 1.8, APTT 42.7 H 05/18/25 19:35: POC Glucose 153 H 05/19/25 06:20: WBC 8.2, RBC 2.92 L, Hgb 8.7 L, Hct 25.5 L, MCV 87.3, MCH 29.8, MCHC 34.1, RDW Std Deviation 53.1 H, RDW Coeff of Francis 17.1 H, Plt Count 59 L, MPV 11.7, Immature Gran % (Auto) 0.600, Neut % (Auto) 76.5 H, Lymph % (Auto) 10.1 L, Hinds % (Auto) 9.7, Eos % (Auto) 2.7, Baso % (Auto) 0.4, Absolute Neuts (auto) 6.3, Absolute Lymphs (auto) 0.83, Nucleated RBC % 0, Sodium 132 L, Potassium 3.7, Chloride 100, Carbon Dioxide 17.1 L, Anion Gap 15, BUN 42 H, Creatinine 1.93 H, Estim Creat Clear Calc 45.25 L, Est GFR (MDRD) Non-Af 40 L, BUN/Creatinine Ratio 21.5 H, Glucose 183 H, Calcium 9.1, Total Bilirubin 2.92 H, AST 29, ALT 15, Alkaline Phosphatase 67, Ammonia 124.0 H, Total Protein 5.7 L, Albumin 3.4 L, Globulin 2.3, Albumin/Globulin Ratio 1.5 Micro: Microbiology 05/15/25 23:35 Sputum, Tracheal Aspirate Gram Stain - Final 05/15/25 23:35 Sputum, Tracheal Aspirate Respiratory Culture - Preliminary GNR lactose hospital unit coordinator ABG Data ABG results: ABG 05/18/25 05/18/25 05/18/25 09:21 09:21 09:21 Specimen Type ART Cancelled Sample Site L Radial Cancelled pH Cancelled Bicarbonate Actual Cancelled Total CO2 Cancelled Base Excess Cancelled O2 Saturation Cancelled O2 % 30.0 ABG pCO2 ABG pO2 Ulices Test VBG pH VBG pO2 VBG HCO3 VBG Total CO2 VBG O2 Sat (Calc) VBG Base Excess POC Mix VBG pCO2 Pt Tmp Respiration Rate O2 Delivery Device Liter Flow Minute Volume Vent Mode Inspiratory Time Expiratory Time Tidal Volume Mean Airway Pressure POC PEEP Peak Inspir Pressure POC Pressure Suppt Pressure Control Pressure High Pressure Low Time High Time Low EPAP IPAP Blood Gas Comments Crit Call To/Read Back Blood Gas Notified Whom Blood Gas Notified Time Clinical Comments 05/18/25 05/18/25 05/18/25 09:21 09:21 09:21 Specimen Type Sample Site pH Bicarbonate Actual Total CO2 Base Excess O2 Saturation O2 % Cancelled ABG pCO2 Cancelled ABG pO2 Cancelled Ulices Test Cancelled VBG pH 7.42 VBG pO2 90 H VBG HCO3 18 L VBG Total CO2 18 L VBG O2 Sat (Calc) 97 H VBG Base Excess -7 L POC Mix VBG pCO2 Pt Tmp 27.1 L Respiration Rate 12 Cancelled O2 Delivery Device Not entered Cancelled Liter Flow Cancelled Minute Volume Cancelled Vent Mode Cancelled Inspiratory Time Cancelled Expiratory Time Cancelled Tidal Volume 500.0 Mean Airway Pressure POC PEEP Peak Inspir Pressure POC Pressure Suppt Pressure Control Pressure High Pressure Low Time High Time Low EPAP IPAP Blood Gas Comments Crit Call To/Read Back Blood Gas Notified Whom Blood Gas Notified Time Clinical Comments 05/18/25 05/18/25 09:21 09:21 Specimen Type Sample Site pH Bicarbonate Actual Total CO2 Base Excess O2 Saturation O2 % ABG pCO2 ABG pO2 Ulices Test VBG pH VBG pO2 VBG HCO3 VBG Total CO2 VBG O2 Sat (Calc) VBG Base Excess POC Mix VBG pCO2 Pt Tmp Respiration Rate O2 Delivery Device Liter Flow Minute Volume Vent Mode Inspiratory Time Expiratory Time Tidal Volume Cancelled Mean Airway Pressure Cancelled POC PEEP 5 Cancelled Peak Inspir Pressure Cancelled POC Pressure Suppt Cancelled Pressure Control Cancelled Pressure High Cancelled Pressure Low Cancelled Time High Cancelled Time Low Cancelled EPAP Cancelled IPAP Cancelled Blood Gas Comments Cancelled Crit Call To/Read Back Cancelled Blood Gas Notified Whom Cancelled Blood Gas Notified Time Cancelled Clinical Comments Cancelled Radiography Diagnostic Testing: Radiology Impression KUB X-Ray 05/18/25 14:35 IMPRESSION: Moderate amount of fecal material is seen in the colon. A left-sided double-J stent catheter is seen. Calcific density seen in the lower pole calyx of the left kidney. Reading Location: [place] [id number] Rhythm Strip Rhythm Strip: Sinus Rhythm Rate: 82 Physical Exam Const Constitutional Narrative: Intubated, sedated and mechanically ventilated. General Appearance: ill appearing Positive for chronically HEENT normocephalic and head/scalp atraumatic Mouth: endotracheal tube in place and OG tube in place Eyes EOMs intact bilaterally and conjunctivae normal Neck supple General: trachea midline Resp normal respiratory effort Auscultation: Negative for rales, rhonchi or wheezes Cardio regular rate and regular rhythm GI soft to palpation and non-tender Extremity no clubbing, cyanosis or edema Skin no rashes or lesions noted Neuro Neuro Narrative: The patient's eyes are open and he will track but he is otherwise nonresponsive. Charges/Coding Procedures Hospitalists Procedures: 40070 Critical Care 1st Hr
--- NOTE | 2025-05-19 08:40 | RAD_ITS ---
PROCEDURE: CHEST 1 VIEW (PORTABLE) 05/19/2025 REASON FOR EXAM: RESPIRATORY FAILURE TECHNIQUE: Frontal view of the chest. FINDINGS: Hardware: NG tube extends below the stomach. An endotracheal tube is in place with the tip 2.6 cm above otilio. Heart: Stable Lungs: Low lung volumes. No pneumothorax. Atelectatic changes of the lower lobes. Mild pulmonary venous congestion increased since previous exam. Bones: Stable RAD/Chest 1 View (Portable) IMPRESSION: Good position of the ETT and NG tube. Low lung volumes and mild pulmonary venous congestion. No pneumothorax or effusion. Reading Location: [id number]
--- NOTE | 2025-05-19 11:07 | CASEMGMT ---
Addendum entered by Judi Alegre 05/19/25 15:38: Social Work- SW called pt son Gaetano to obtain address for transportation purposes. [facility]. Lizandro reports that he, brother Dominic, his , and their mom (who all live in the home) would all need transportation. SW shared that it may be just pt sons who are able to be transported. Lizandro reports that CPS is coming tomorrow at 11AM and that Friday would be better. Lizandro reports he would be open to Friday if necessary. SW called [employer] [phone]. They do not handle transportation or vouchers. SW called [employer] [phone]. They do not handle transportation or vouchers. SW called [employer] [place] [phone]. SW left a voicemail. SW called [facility] [phone]. JEANNINE spoke with Yecenia who reports that she will check with her airport skilled maintenance supervisor for options and follow up with JEANNINE. JEANNINE called [employer] [phone]. SW left a voicemail for Zaida Castellon, recreation therapy director. JEANNINE called [facility] [phone] provides medical transportation, no other resources available. JEANNINE called [employer] [phone]. They assist with transportation through insurance. They require 2 business days notice and cannot transport until Friday. SW remains available to follow. JANETTE Valladares Addendum entered by Judi Alegre 05/19/25 14:58: Social Work- JEANNINE called Rosario, striper machine of pt dtrs, who reports that she is not comfortable transporting, as there is family drama and she prefers everyone stay in their own corners. Rosario reports that she does not necessarily want the girls to be at the hospital the same times that pt sons are present. Rosario reports that she will plan to be at the hospital with pt dtrs around 10AM Friday. AJNETTE Valladares Addendum entered by Judi Alegre 05/19/25 14:06: SW participated in goals of care call to pt sons with Palliative PRODUCTION ASSEMBLY OPERATOR and [employer] Center [employer]. Pt sons report understanding of pt current medical status. Pt son report that they do not want pt to suffer and would like hospice care for pt. Pt sons expressed that they understand pt will be extubated. Pt sons would like to see pt prior to passing, but report that they do not have the funds for transportations. JEANNINE to work on coordination of transportation. JANETTE Valladares Original Note: Social Work- JEANNINE received a telephone call from Rosario Lama, aunt/striper machine of Nancy and Josy (pt dtrs). Rosario reports that although Josy is 25 and Nancy is 29, Nancy cannot read and the girls are both significantly delayed emotionally, in ability to reason and make logical decisions, and educationally. Rosario reports that the girls are excused from jury duty due to the developmental delay. Rosario reports that she has raised the girls since ages 4 and 6, taking custody in 2003 from her parents. Rosario reports that they graduated high school at the age of 21 after aging out, not due to having met the requirements. Rosario reports that the girls attend day programs, do not work, and live with her. Rosario reports that she does not have legal guardianship at this time. Rosario reports that Sylvia is her adopted sister and was adopted into their family having special needs. Rosario was uncertain if pt sons are able to make decisions, as she did not raise them. Rosario reports that the girls would see pt sporadically/a few times a year at public places, but have not seen him for awhile. Rosario reports that pt had talked to the girls on the phone 'here and there' since he had been sick/over the past year. Rosario reports that she feels pt loved his girls, but did not have the capacity to care for them. Rosario reports that she has discussed bringing the girls to see pt in ICU on Friday and has been working to prepare them for the visit. Rosario again reiterated that she feels the girls lack capacity to make decisions and expressed concern about their ability to understand what is being communicated to them, as well as the emotional reaction they may have. JEANNINE collaborated with SW automotive sales manager to discuss situation and artistic director to determine if it is needed for dtr to take part in discussions related to goals of care. Design Center Consultant agreeable to deferment of dtr involvement, as is SW automotive sales manager. JEANNINE called Rosario back to update. Rosario expressed agreement that pt dtr deferment is appropriate. JEANNINE remains available to follow. JANETTE Valladares
[2025-05-19] MEDS: Chlorhexidine 15 ML PO ×2 (11:10→22:37)
[2025-05-19] MEDS: Pantoprazole Sodium 40 MG in 0.9% Normal Saline (100mL MB+) 100 ML 300 MG IV ×2 (11:23→22:36)
--- NOTE | 2025-05-19 12:24 | PCM.PN.PAL ---
Subjective Subjective 05/19/25: It has been established that the patient has no legal POA. Next of kin are the patient's sons Jose and Lizandro. Teleconference family meeting with both sons was today at noon with myself, Dr. Meraz and Judi from [employer]. Dr. Meraz was able to share with the boys their fathers poor prognosis given his current presentation. The boys state understanding and have elected to transition to hospice. Judi is working on getting transportation for the boys to come see their father prior to compassionate liberation from the ventilator which is currently planned for Friday. Patient also has 2 daughters that live in [place] in a care home. They are caretakers planning to bring them on Friday as well. If patient were to survive compassionate liberation of the ventilator, hopeful for transition to the inpatient unit with life care. Patient continues to be on the ventilator and is not on sedation. During my bedside assessment patient was not following commands. All questions were answered but the sons had. 05/16/25:Prior to meeting with the patient at bedside and reviewed labs and radiological studies as well as documentation from current and previous visits. I then met with the patient, FRANKLIN ARCHULETA at bedside. Franklin is currently intubated and unable to have goals of care conversation. It is reported that patient lives with his ex- and her . Patient has no POA paperwork on file. Patient does have next of kin a son named Haile and a son named Dominic, whom we have been unable to reach. Franklin has had multiple admissions for the same complaint. It is reported that he was on hospice services with [facility] and that his ex-, Sylvia, fired them because they insinuated that she was not caring for him adequately. The phone numbers that we have for the sons are not working numbers. Pt is currently on the vent at 30% FiO2, fentanyl at 75mcg, Propofol at 25. Will continue to follow in an attempt to establish goals of care as well as discuss code status. I did meet with SW and CM to obtain social history as well as discussion about POA. per hospitalist: FRANKLIN ARCHULETA, is a 59 M who presented to [facility] ED on 05/15/2025 with altered mental status. Patient is well-known to our hospital. Medical history significant for HARRIS cirrhosis with episodes of acute hepatic encephalopathy. He most recently was hospitalized here from 05/06-05/09 for abdominal pain with nausea and emesis and concern for hepatic encephalopathy. His ammonia level was high but he had normal mentation at the time of admission so hepatic encephalopathy was ruled out. However patient did note that he has recently been noncompliant with his lactulose because he believed it was causing his symptoms of abdominal pain with nausea and emesis. He noted that taking Mylanta is helpful to relieve the symptoms so it was recommended that he take his lactulose as prescribed as well as Mylanta regularly to control the symptoms. He presented to the ED today with altered mental status. ED physician noted that patient was attempting to answer questions with mumbling but could not answer any questions appropriately or provide any medical history. He was mildly hypotensive to the 90s over 50s but otherwise in normal sinus rhythm, afebrile and stable on room air at rest. CBC and BMP were fairly benign. Lactic acid 2.2. T. bili 1.70, AST 48, ALT 27, alk phos 116. Ammonia level 143 which is slightly worsened from ammonia 128 on 05/09. CT brain was unremarkable. After labs and imaging had been done, patient was reevaluated and it was noted that his mentation worsened and he was essentially unresponsive. He was only opening his eyes to noxious stimuli. Given concern for patient not being able to protect his airway, decision was made to proceed with intubation. He was successfully intubated in the ED. Hospitalist was then contacted for admission. I saw the patient at bedside in the ED. He was sedated and intubated and not following commands. Will be admitted for further management. 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 Pt unable to provide history as he is intubated. He was recently hospitalized here for UTI and elevated ammonia in setting of noncompliance with lactulose dosing at home. He improved with abx and lactulose, and ultimately discharged on 05/09. He was brought back to ED today with severe AMS, was only mumbling occasionally and could not answer questions. His apparently gave him 20 units of insulin at home prior to arrival despite his sugar not being elevated. Ammonia up to 143 now, glucose down to 60. CT head negative for acute pathology. He had worsening obtundation and so ultimately intubated for airway protection. Objective Data Objective Data Ammonia continues to be elevated and is now 125. Vital Signs: Vital Signs Temp Pulse Resp BP Pulse Ox O2 Del Method FiO2 98.1 F 103 H 13 115/72 99 Mechanical Ventilator 30 05/19/25 12:00 05/19/25 12:00 05/19/25 12:00 05/19/25 12:00 05/19/25 12:00 05/19/25 12:00 05/19/25 12:00 Oxygen Delivery Method Mechanical Ventilator Weight: 196 lb 6.91 oz Body Mass Index (BMI) 29.0 Intake & Output: Intake and Output for Last 24 Hours 05/17/25 05/18/25 05/19/25 23:59 23:59 23:59 Intake Total 1247.70 / 1247.70 3139.75 / 3139.75 235.89 / 235.89 Output Total 815 / 815 640 / 640 1000 / 1000 Balance 432.70 / 432.70 2499.75 / 2499.75 -764.11 / -764.11 Lab / Micro Data Attestation: I reviewed the patient's lab results. 05/19/25 06:20 05/19/25 06:20 Labs: Laboratory Results - last 24 hr 05/18/25 19:35: POC Glucose 153 H 05/19/25 06:20: WBC 8.2, RBC 2.92 L, Hgb 8.7 L, Hct 25.5 L, MCV 87.3, MCH 29.8, MCHC 34.1, RDW Std Deviation 53.1 H, RDW Coeff of Francis 17.1 H, Plt Count 59 L, MPV 11.7, Immature Gran % (Auto) 0.600, Neut % (Auto) 76.5 H, Lymph % (Auto) 10.1 L, [place] % (Auto) 9.7, Eos % (Auto) 2.7, Baso % (Auto) 0.4, Absolute Neuts (auto) 6.3, Absolute Lymphs (auto) 0.83, Nucleated RBC % 0, Platelet Estimate MOD DEC, Sodium 132 L, Potassium 3.7, Chloride 100, Carbon Dioxide 17.1 L, Anion Gap 15, BUN 42 H, Creatinine 1.93 H, Estim Creat Clear Calc 45.25 L, Est GFR (MDRD) Non-Af 40 L, BUN/Creatinine Ratio 21.5 H, Glucose 183 H, Calcium 9.1, Total Bilirubin 2.92 H, AST 29, ALT 15, Alkaline Phosphatase 67, Ammonia 124.0 H, Total Protein 5.7 L, Albumin 3.4 L, Globulin 2.3, Albumin/Globulin Ratio 1.5 05/19/25 08:45: Blood Type O POSITIVE, Antibody Screen NEGATIVE Micro: Microbiology 05/15/25 23:35 Sputum, Tracheal Aspirate Gram Stain - Final 05/15/25 23:35 Sputum, Tracheal Aspirate Respiratory Culture - Final 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 ABG Data ABG results: ABG 05/18/25 09:21 Specimen Type Cancelled Sample Site Cancelled pH Cancelled Bicarbonate Actual Cancelled Total CO2 Cancelled Base Excess Cancelled O2 Saturation Cancelled O2 % Cancelled ABG pCO2 Cancelled ABG pO2 Cancelled Ulices Test Cancelled Respiration Rate Cancelled O2 Delivery Device Cancelled Liter Flow Cancelled Minute Volume Cancelled Vent Mode Cancelled Inspiratory Time Cancelled Expiratory Time Cancelled Tidal Volume Cancelled Mean Airway Pressure Cancelled POC PEEP Cancelled Peak Inspir Pressure Cancelled POC Pressure Suppt Cancelled Pressure Control Cancelled Pressure High Cancelled Pressure Low Cancelled Time High Cancelled Time Low Cancelled EPAP Cancelled IPAP Cancelled Blood Gas Comments Cancelled Crit Call To/Read Back Cancelled Blood Gas Notified Whom Cancelled Blood Gas Notified Time Cancelled Clinical Comments Cancelled Radiography Diagnostic Testing: Radiology Impression KUB X-Ray 05/18/25 14:35 IMPRESSION: Moderate amount of fecal material is seen in the colon. A left-sided double-J stent catheter is seen. Calcific density seen in the lower pole calyx of the left kidney. Reading Location: [facility] Chest X-Ray 05/19/25 08:40 IMPRESSION: Good position of the ETT and NG tube. Low lung volumes and mild pulmonary venous congestion. No pneumothorax or effusion. Reading Location: [id number] Rhythm Strip Rhythm Strip: Sinus Rhythm Rate: 82 Physical Exam Const General Appearance: intubated Orientation / Consciousness: obtunded HEENT normocephalic Teeth and Gingiva: poor dentition Neck General: normal visual inspection Chest inspection of chest normal Resp Auscultation: crackles and diminished lung sounds Cardio Rate: tachycardic GI GI Narrative: OG tube in place. Inspection: anasarca present Auscultation: hyperactive bowel sounds Narrative: Del Castillo catheter in place. Extremity General Extremity: edema Skin Skin Narrative: Breakdown per documentation. Neuro Neuro Narrative: Patient is not sedated but did not follow commands for me. Psych Psych Narrative: Unable to assess. Charges/Coding Palliative Care Palliative Care: 64042 Follow up 50+ min Consulation Summary Current admission Current Code Status: changed to DNRCC-A Associated Diagnosis: End stage liver cirrhosis Consult Data Date of Consult: 05/18/25 Location of consult: ICU Reason for referral: goals of care Referral source: customer care specialist diagnosis (Summary list): metabolic encephalopathy Palliative care services/treatment (Accepted, as consult): accepted Case discussed with referring provider: in family meeting with megha and Dr. Meraz Palliative Assessment Advanced Directive - Current Admission Advance Directive: Advance Directive ON ADMISSION - REFERENCE Which Advance Directives None 05/15/25 20:45 documents are scanned in? Do you have a Healthcare No 05/15/25 20:45 Living Will? Do you have a Healthcare Power No 05/15/25 16:25 of [employer]? Do You Want Additional Declined 05/15/25 16:25 Information on Advanced Directives or Healthcare Proxy/DPOA comments: megha Rocha Symptoms Dyspnea symptoms: Severe Impression & Recommendations Impressions Impressions: pt has advanced chronic illness and may not survive hospitalization Recommentation Palliative recommendations: Pt was on hospice but discontinued (per report) hospice recommendation. Encouter Achieved as a result of this Palliative Care Encounter: [[id number], [id number] ] minutes were spent in total for this visit which consisted, primarily of counseling and education dealing with the complex and emotionally intense issues of symptom management and palliative care in the setting of serious and potentially life-threatening illness. Review of documentation, labs and radiological studies. ?Patient/family had the opportunity to ask questions Plan (1) Hypoglycemia: PLAN: medical mgmt per IDT (2) Acute hepatic encephalopathy: PLAN: med mgmt per IDT (3) Hyperammonemia: PLAN: med mgmt per IDT (4) Acute alteration in mental status: PLAN: med mgmt per IDT (5) Palliative care encounter: PLAN: *Telephone conference with family. *recommend the pt receive hospice services for his end stage liver cirhhosis (6) Goals of care, counseling/discussion: PLAN: *Family would like patient to be comfortable given his chronic terminal illness. *Plan is to compassionately liberate the patient from the ventilator on Friday after family is able to visit. ROS ROS Narrative Unable to obtain Review of Systems ROS Unobtainable: due to encephalopathy, due to endotracheal tube, due to mental condition, due to mental status and other
[2025-05-19] MEDS: Vital AF 1.2 Cal Liquid 1,000 ML 15 ML GT (14:04)
[2025-05-19 19:52] LABS: Ammonia 57.0 umol/L (16-60)
[2025-05-20] VITALS (36 sets, daily range): BP systolic 96–131; BP diastolic 48–81; PULSE 106–121; RESP 12–20; TEMP 37.7–38.2; O2SAT 95–100; BMI 28.7
[2025-05-20] MEDS: CHLORHEXIDINE GLUC 2% CLOTH 1 EACH TOWELETTE TOPICAL (00:29)
[2025-05-20 06:46] LABS: Ammonia 42.8 umol/L (16-60)
[2025-05-20 06:58] LABS: AST(SGOT) 28 U/L (<=37); Alanine Aminotransfer ALT/SGPT 16 U/L (<=46); Albumin, Serum 3.2 g/dL (3.5-5.0); Alkaline Phosphatase 70 U/L (40-129); Anion Gap 13 (5-15); BUN 31 mg/dL (4-19); BUN/Creat Ratio 22.3 RATIO (10-20); Calcium,Total 8.9 mg/dL (7.6-11.0); Carbon Dioxide 19.1 mmol/L (21.0-32.0); Chloride 102 mmol/L (98-108); Estimated Creatinine Clearance 62.02 ml/min (50-250); Globulin 2.1 g/dL (2.2-4.2); Glucose 207 mg/dL (70-99); Potassium 2.9 mmol/L (3.3-5.1)
[2025-05-20 07:29] LABS: Hematocrit 25.9 % (40-54); Hemoglobin 8.7 g/dL (13.0-16.5); Mean Corp Hgb Conc 33.6 g/dL (32-36); Mean Corpuscular Volume 88.7 fL (80-94); Mean Platelet Vol. 12.9 fl (6.2-12.0); NRBC Flagged by Analyzer 0 % (0-5); POSITIVE COUNT YES; Platelet Count 59 K/mm3 (150-450); RBC Distribution Width CV 17.4 % (11.6-14.6); RBC Distribution Width SD 54.7 fl (35.1-43.9); Red Blood Count 2.92 M/mm3 (4.6-6.2); White Blood Count 9.3 K/mm3 (4.4-11.0)
--- NOTE | 2025-05-20 07:30 | PCM.PN.INT ---
Assessment & Plan Assessment/Plan (1) Acute hepatic encephalopathy: PLAN: Plan RECOMMENDATIONS: 1. Continue assist-control mode of mechanical ventilation. Wean FiO2 and PEEP as tolerated. 2. Continue lactulose and rifaximin. 3. Continue PPI therapy. 4. Continue to monitor blood sugars to maintain euglycemia. 5. Continue to hold all sedating medications. 6. Tentative plans for extubation once family has visited with the patient tomorrow. 7. Continue tube feeding for nutritional support. Will need to monitor potassium and phosphorus closely, given risk for refeeding syndrome. IMPRESSIONS: 1. Acute hypoxemic respiratory failure The patient was intubated primarily for airway protection in the setting of altered mental status. The patient will be maintained on assist-control mode of mechanical ventilation, with a goal to wean FiO2 and PEEP to maintain saturations at or above 90%. I would recommend holding sedation for now. Once the patient's encephalopathy has improved, we will proceed with spontaneous awakening and breathing trials. After a family discussion yesterday with the patient's sons, the plan is to resume hospice care services once family has visited with the patient tomorrow. 2. Acute encephalopathy Most likely multifactorial with hepatic encephalopathy in the setting of decompensated cirrhosis contributing along with hypoglycemia. Will plan to continue aggressive medical management of the patient's hepatic encephalopathy with lactulose and continue to monitor ammonia level for improvement. Blood sugars will be monitored accordingly. Gastroenterology is currently following to assist with medical management. 3. History of HARRIS cirrhosis with frequent hospitalizations The patient has a documented history of medical noncompliance leading to decompensation in his cirrhosis and subsequent hepatic encephalopathy and need for hospitalization. The patient is apparently been declined for transplantation at [facility] in the past. In order to be referred to an alternative transplant center, the patient would need to be referred by his PCP. However, the patient has never been able to stay out of the hospital long enough to accomplish this goal. Accordingly, palliative care medicine is currently following. There are plans to proceed with extubation tomorrow after the patient's family has arrived to visit. His sons were both in agreement to proceed with resumption of hospice care services following extubation. 4. History of anemia/thrombocytopenia/diabetes mellitus/GERD/obstructive sleep apnea Complicates care, management, recovery and prognosis. Continue PPI therapy as ordered. Continue to monitor blood counts daily and transfuse if hemoglobin drops below 7 g/dL. CODE STATUS: DNR CCA TIME: 34 minutes of critical care time, independent of procedures, was spent addressing the patient's acute hypoxemic respiratory failure, acute encephalopathy, decompensated Harris cirrhosis, review of all data and collaboration with the care team. Subjective Subjective The patient was seen and examined at the bedside this morning. Events from the last 24 hours have been reviewed. The patient is currently afebrile, hemodynamically stable and maintaining appropriate oxygen saturations on assist-control mode mechanical ventilation with an FiO2 requirement of 30% and PEEP of 5. The patient appears slightly more alert than yesterday. All sedation remains on hold. I did participate in a discussion with the patient's 2 sons yesterday regarding goals of care. They were both in agreement to resume hospice care services and to proceed with terminal extubation. However, there are additional family members that are arriving tomorrow (Friday), who would like to see the patient prior to extubation. The patient is currently documented to be overall net +4.5 L for the hospitalization. White blood cell count is normal. Hemoglobin and platelet count are stable. Potassium is low at 2.9 with improved creatinine at 1.4. The patient's ammonia level has normalized. Objective Data Objective Data The patient's most recent lab work, culture data and imaging studies have all been personally reviewed. Vital Signs: Vital Signs Temp Pulse Resp BP Pulse Ox O2 Del Method FiO2 100 F H 114 H 14 114/67 95 Mechanical Ventilator 30 05/20/25 07:00 05/20/25 07:00 05/20/25 07:00 05/20/25 07:00 05/20/25 07:00 05/20/25 07:00 05/20/25 07:00 Oxygen Delivery Method Mechanical Ventilator Weight: 194 lb 0.108 oz Body Mass Index (BMI) 28.7 Intake & Output: Intake and Output for Last 24 Hours 05/18/25 05/19/25 05/20/25 23:59 23:59 23:59 Intake Total 3139.75 / 3139.75 1826.89 / 1916.89 591.5 / 591.5 Output Total 640 / 640 1675 / 2630 1180 / 1180 Balance 2499.75 / 2499.75 151.89 / -713.11 -588.5 / -588.5 Lab / Micro Data Attestation: I reviewed the patient's lab results. 05/20/25 05:53 05/20/25 05:53 Labs: Laboratory Results - last 24 hr 05/19/25 06:20: Platelet Estimate MOD 05/19/25 08:45: Blood Type O POSITIVE, Antibody Screen NEGATIVE 05/19/25 19:18: Ammonia 57.0 05/20/25 05:53: Sodium 135, Potassium 2.9 L, Chloride 102, Carbon Dioxide 19.1 L, Anion Gap 13, BUN 31 H, Creatinine 1.40 H, Estim Creat Clear Calc 62.02, Est GFR (MDRD) Non-Af 58 L, BUN/Creatinine Ratio 22.3 H, Glucose 207 H, Calcium 8.9, Total Bilirubin 2.43 H, AST 28, ALT 16, Alkaline Phosphatase 70, Ammonia 42.8, Total Protein 5.3 L, Albumin 3.2 L, Globulin 2.1 L, Albumin/Globulin Ratio 1.6 Micro: Microbiology 05/15/25 23:35 Sputum, Tracheal Aspirate Gram Stain - Final 05/15/25 23:35 Sputum, Tracheal Aspirate Respiratory Culture - Final 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 ABG Data ABG results: ABG 05/18/25 05/18/25 05/18/25 09:21 09:21 09:21 Specimen Type ART Cancelled Sample Site L Radial Cancelled pH Cancelled Bicarbonate Actual Cancelled Total CO2 Cancelled Base Excess Cancelled O2 Saturation Cancelled O2 % 30.0 ABG pCO2 ABG pO2 Ulices Test VBG pH VBG pO2 VBG HCO3 VBG Total CO2 VBG O2 Sat (Calc) VBG Base Excess POC Mix VBG pCO2 Pt Tmp Respiration Rate O2 Delivery Device Liter Flow Minute Volume Vent Mode Inspiratory Time Expiratory Time Tidal Volume Mean Airway Pressure POC PEEP Peak Inspir Pressure POC Pressure Suppt Pressure Control Pressure High Pressure Low Time High Time Low EPAP IPAP Blood Gas Comments Crit Call To/Read Back Blood Gas Notified Whom Blood Gas Notified Time Clinical Comments 05/18/25 05/18/25 05/18/25 09:21 09:21 09:21 Specimen Type Sample Site pH Bicarbonate Actual Total CO2 Base Excess O2 Saturation O2 % Cancelled ABG pCO2 Cancelled ABG pO2 Cancelled Ulices Test Cancelled VBG pH 7.42 VBG pO2 90 H VBG HCO3 18 L VBG Total CO2 18 L VBG O2 Sat (Calc) 97 H VBG Base Excess -7 L POC Mix VBG pCO2 Pt Tmp 27.1 L Respiration Rate 12 Cancelled O2 Delivery Device Not entered Cancelled Liter Flow Cancelled Minute Volume Cancelled Vent Mode Cancelled Inspiratory Time Cancelled Expiratory Time Cancelled Tidal Volume 500.0 Mean Airway Pressure POC PEEP Peak Inspir Pressure POC Pressure Suppt Pressure Control Pressure High Pressure Low Time High Time Low EPAP IPAP Blood Gas Comments Crit Call To/Read Back Blood Gas Notified Whom Blood Gas Notified Time Clinical Comments 05/18/25 05/18/25 09:21 09:21 Specimen Type Sample Site pH Bicarbonate Actual Total CO2 Base Excess O2 Saturation O2 % ABG pCO2 ABG pO2 Ulices Test VBG pH VBG pO2 VBG HCO3 VBG Total CO2 VBG O2 Sat (Calc) VBG Base Excess POC Mix VBG pCO2 Pt Tmp Respiration Rate O2 Delivery Device Liter Flow Minute Volume Vent Mode Inspiratory Time Expiratory Time Tidal Volume Cancelled Mean Airway Pressure Cancelled POC PEEP 5 Cancelled Peak Inspir Pressure Cancelled POC Pressure Suppt Cancelled Pressure Control Cancelled Pressure High Cancelled Pressure Low Cancelled Time High Cancelled Time Low Cancelled EPAP Cancelled IPAP Cancelled Blood Gas Comments Cancelled Crit Call To/Read Back Cancelled Blood Gas Notified Whom Cancelled Blood Gas Notified Time Cancelled Clinical Comments Cancelled Radiography Diagnostic Testing: Radiology Impression Chest X-Ray 05/19/25 08:40 IMPRESSION: Good position of the ETT and NG tube. Low lung volumes and mild pulmonary venous congestion. No pneumothorax or effusion. Reading Location: [facility] Rhythm Strip Rhythm Strip: Sinus Rhythm Rate: 82 Physical Exam Const Constitutional Narrative: Intubated, sedated and mechanically ventilated. General Appearance: ill appearing Positive for chronically HEENT normocephalic and head/scalp atraumatic Mouth: endotracheal tube in place and OG tube in place Eyes EOMs intact bilaterally and conjunctivae normal Neck supple General: trachea midline Resp normal respiratory effort Auscultation: Negative for rales, rhonchi or wheezes Cardio regular rate and regular rhythm GI soft to palpation and non-tender Extremity no clubbing, cyanosis or edema Skin no rashes or lesions noted Neuro Neuro Narrative: The patient will open his eyes to verbal stimulation. He is still not able to follow simple commands. Charges/Coding Procedures Hospitalists Procedures: 18473 Critical Care 1st Hr
--- NOTE | 2025-05-20 08:13 | PCM.PN.HOSP ---
Reason for Visit Chief Complaint: Altered mental status Subjective Subjective Patient seen remains on the vent only no response with deep sternal rub.. Plan is for family meeting on 05/20/2025 with hospice and subsequently terminal weaning Objective Data Objective Data Vital Signs: Vital Signs Temp Pulse Resp BP Pulse Ox O2 Del Method FiO2 100 F H 114 H 14 114/67 95 Mechanical Ventilator 30 05/20/25 07:00 05/20/25 07:00 05/20/25 07:00 05/20/25 07:00 05/20/25 07:00 05/20/25 07:00 05/20/25 07:00 Oxygen Delivery Method Mechanical Ventilator Weight: 88 kg Body Mass Index (BMI) 28.7 Intake & Output: Intake and Output for Last 24 Hours 05/18/25 05/19/25 05/20/25 23:59 23:59 23:59 Intake Total 3139.75 / 3139.75 1826.89 / 1916.89 591.5 / 591.5 Output Total 640 / 640 1675 / 2630 1180 / 1180 Balance 2499.75 / 2499.75 151.89 / -713.11 -588.5 / -588.5 Lab / Micro Data 05/20/25 05:53 05/20/25 05:53 Labs: Laboratory Results - last 24 hr 05/19/25 08:45: Blood Type O POSITIVE, Antibody Screen NEGATIVE 05/19/25 19:18: Ammonia 57.0 05/20/25 05:53: WBC 9.3, RBC 2.92 L, Hgb 8.7 L, Hct 25.9 L, MCV 88.7, MCH 29.8, MCHC 33.6, RDW Std Deviation 54.7 H, RDW Coeff of Francis 17.4 H, Plt Count 59 L, MPV 12.9 H, Nucleated RBC % 0, Sodium 135, Potassium 2.9 L, Chloride 102, Carbon Dioxide 19.1 L, Anion Gap 13, BUN 31 H, Creatinine 1.40 H, Estim Creat Clear Calc 62.02, Est GFR (MDRD) Non-Af 58 L, BUN/Creatinine Ratio 22.3 H, Glucose 207 H, Calcium 8.9, Total Bilirubin 2.43 H, AST 28, ALT 16, Alkaline Phosphatase 70, Ammonia 42.8, Total Protein 5.3 L, Albumin 3.2 L, Globulin 2.1 L, Albumin/Globulin Ratio 1.6 Micro: Microbiology 05/15/25 23:35 Sputum, Tracheal Aspirate Gram Stain - Final 05/15/25 23:35 Sputum, Tracheal Aspirate Respiratory Culture - Final GNR lactose electroencephalographic technician Radiography Diagnostic Testing: Radiology Impression Chest X-Ray 05/19/25 08:40 IMPRESSION: Good position of the ETT and NG tube. Low lung volumes and mild pulmonary venous congestion. No pneumothorax or effusion. Reading Location: [facility] Rhythm Strip Rhythm Strip: Sinus Rhythm Rate: 82 Physical Exam Narrative GENERAL: Winces with deep sternal rub HEENT: Atraumatic; normocephalic EYES; Anicteric, Normal Conjunctiva NECK; supple, normal thyroid, RESPIRATORY: Diminished to auscultation CARDIOVASCULAR: Regular S1 S2, GI: soft, normoactive bowel sounds, : No Renal angle tenderness; EXTREMITIES: No edema, no clubbing, MUSCULOSKELETAL: no muscle wasting NEURO: Winces with deep sternal rub SKIN: Areas of ecchymosis and petechia on extremities Assessment & Plan Assessment/Plan (1) Acute hepatic encephalopathy: PLAN: Plan Patient is a 59-year-old gentleman with history of cirrhosis of the liver with multiple admissions presented with altered mental status. He had apparently not been compliant with his lactulose. Patient was felt not to be protecting his airway necessitating patient being intubated in the ED and subsequently admitted to the intensive care unit for further management next 1. Acute hepatic encephalopathy with significant hyperammonemia ? Secondary to noncompliance with therapy. Patient was found not to be protecting his airway on admission necessitating patient being intubated and admitted to the intensive care unit ? 05/17/2020 patient is currently awake on the vent undergoing weaning trial ? 05/18/2025; patient currently is off sedation per nursing staff patient is noted to have a bowel movement increase patient lactulose 20 g every 4 hours ? 05/19/2025 patient did not respond to lactulose necessitating patient being started on GoLytely by Dr. Dr. Li. Patient remains on the vent however is not responsive this morning compared to the day prior he had apparently received fentanyl for sedation ? 05/20/2025Patient seen remains on the vent only no response with deep sternal rub.. Plan is for family meeting on 05/20/2025 with hospice and subsequently terminal weaning 2. Acute hypoxic respiratory failure Per stated by patient significant encephalopathy patient was intubated in the ED prior to patient being admitted subsequently admitted to the intensive care unit Vent management deferred to pulmonary/intensive care ? 05/17/2025; weaning trial this a.m. ?05/18/2025; patient remains on the vent but currently off sedation, decision to wean patient off the vent deferred to healthcare advisory services manager ? Stay 2024; patient remains on the vent 3. Cirrhosis of the liver ? Secondary to nonalcoholic fatty liver disease patient is on rifaximin, Aldactone as well as furosemide at home plan is to resume following patient extubation 4. Anemia ? Secondary to chronic disorder monitoring H&H and transfuse if patient becomes symptomatic or hemoglobin falls below 7 5. Thrombocytopenia ? Chronic secondary to patient chronic liver disease will monitor with daily CBC with differential 6. Diabetes mellitus type II -patient's oral hypoglycemics held. Placed on long acting insulin, Accu-Cheks a.c. and at bedtime and covered with sliding scale insulin 7. History of extensive venous thrombosis - Patient was treated with Lovenox 8. GERD ? Patient is on PPI 9. Obstructive sleep apnea ? Patient is on CPAP at night ? Plan is to resume once patient is weaned off the vent 10. DVT prophylaxis ? Subcu Lovenox 11. Hyperkalemia ? Ordered 30 g of Kayexalate with repeat potassium levels ordered for now ? 05/18/2025; patient potassium levels remain elevated at 5.3 ? 05/19/2025; potassium down to 3.7 12. Acute renal failure with high suspicion for hepatorenal syndrome ? Consult placed to nephrology ? 05/19/2025; consult was placed to nephrology no significant change in creatinine level, 1.93 this a.m. 13. Nutrition ? Patient started on tube feed vital AF 1.2, with a goal rate of 60 mL per. Dietitian on consult Time spent in the patient's overall evaluation,decision-making process, review of diagnostic data, adjustment of management, discussion with other providers, nursing nursing and ancillary staff involved in patient's care documentation, 38 Minutes Charges/Coding Visit Charges Inpatient E&M: 10700 Subs Hosp L2
[2025-05-20] MEDS: Potassium Chloride 10mEq/100mL 10 MEQ/100 ML IV.SOLN. 100 MEQ IV BOLUS ×4 (09:26→12:22)
[2025-05-20] MEDS: Chlorhexidine 15 ML PO ×2 (09:29→20:27)
[2025-05-20] MEDS: Pantoprazole Sodium 40 MG in 0.9% Normal Saline (100mL MB+) 100 ML 300 MG IV ×2 (09:36→20:26)
--- NOTE | 2025-05-20 09:41 | CASEMGMT ---
Addendum entered by Judi Alegre 05/20/25 17:43: JEANNINE spoke with Rosario who asks for dtrs to have a period of time before Sylvia visits in the vent that Sylvia is not regulated and pt dtrs would need to be . Rosario will monitor interactions with Sylvia following that time. JEANNINE communicated this request to Sylvia and asked that she not arrive before 9:30. JEANNINE also communicated expectations regarding behaviors and offered staff support in the event that Sylvia feels overwhelmed and would benefit from stepping outside the room and having co-regulation by staff. JEANNINE spoke with Ale from [facility] to update on situation. Ale will likely be the person doing admit tomorrow. Ale requests staff present if Sylvia is in pt room during that time due to hostile behavior from Sylvia in the past. Ale reports she will arrive around noon. JANETTE Valladares Addendum entered by Judi Alegre 05/20/25 16:33: JEANNINE called [facility] to verify receipt of referral. [facility] reports that they reached out to Sylvia who was very angry and declined services. JEANNINE confirmed Lizandro as contact and requested that Sylvia be removed from their contacts as per the fax cover sheet. [facility] reports that they will reach out to Lizandro. JEANNINE called Sylvia to communicate expectations of visitation tomorrow. Sylvia was on the phone with Josy- pt dtr- who had updated Sylvia on the time of their visit. Sylvia reports wanting to be present with her daughters. JEANNINE called Rosario and left a voicemail communicating Sylvia's request. SW to follow. JANETTE Valladares Addendum entered by Judi Alegre 05/20/25 14:43: Social Work- [facility] community nurse liaison [phone]. Contact point for assistance. JEANNINE collaborated with weekend JEANNINE and SW ground wood supervisor. JANETTE Valladares Addendum entered by Judi Alegre 05/20/25 13:43: Social Work- JEANNINE called Lizandro, pt son, to confirm plans for tomorrow. Pt son, Jose, also on phone. Lizandro reports that they can't see him like that, with Dominic echoing I will destroy something, dude...I will fuck shit up. JEANNINE offered active, empathetic listening as pt sons processed emotions and verbalized their grief. JEANNINE offered a video chat and educated on coping supports at home that could be utilized if needed. Pt sons declined a video call today, but would contemplate doing a video call tomorrow. JEANNINE updated on-call SW of request. JEANNINE called Janie at [facility] to update. JEANNINE updated ICU staff. JEANNINE faxed referral to Hospice, advising of planned extubation. JANETTE Valladares Addendum entered by Judi Alegre 05/20/25 11:10: Social Work- JEANNINE updated Rosario, pt dtr's wrapper sorter, regarding time of visit by son's. Rosario will adjust their time earlier to 9am so as to allow more time for their visit and was appreciative of update. Rosario asked JEANNINE to be sure staff know not to discuss pt status in front of pt dtrs. Rosario does not feel at this time that pt dtrs are able to respond appropriately emotionally to pt passing and remains hesitant to tell dtrs prior to return back to [place]. JEANNINE updated staff. JEANNINE called Lizandro and left a voicemail to confirm that Hospice had contacted and explore pt son's wishes regarding extubation timing. JEANNINE remains available to follow. JANETTE Valladares Original Note: Social Work- JEANNINE spoke with Janie, change manager volunteer department [facility], who reports that she has a volunteer, Jacob, who will transport pt sons Friday. Janie reports that Jacob will pickle water pump operator sons at 10, drop off at main entrance, allow a visit 11, then transport back. Janie's contact is [phone]. Janie to call Lizandro to confirm address and details. JEANNINE remains available to follow. JANETTE Valladares
--- NOTE | 2025-05-20 10:15 | NURSING ---
Sylvia, patients ex-, came to visit. Sylvia started to collect patients belongings requesting that she takes them home to wash. Sylvia was instructed that she can not take patients belongings without consent of the next of kin/decision makers. Sylvia became upset and couldn't understand why she cant have his belongings since he lives with her and she takes care of him. This RN offered to call patients sons (next of kin) however Sylvia left the room upset and crying. This RN attempted to get Sylvia to have a discussion about issue, however she walked off unit.
[2025-05-20] MEDS: 0.9% Normal Saline (250mL Bag) 250 ML 15 ML IV (10:59)
[2025-05-20] MEDS: Potassium Phosphate 30 MM in 0.9% Normal Saline (250mL Bag) 250 ML 55 MM IV (11:02)
--- NOTE | 2025-05-20 13:13 | NURSING ---
[facility] informed RN patient is not a candidate for donation but would still like to receive a call when patient passes per protocol.
[2025-05-20] MEDS: Vital AF 1.2 Cal Liquid 1,000 ML 45 ML GT (19:14)
[2025-05-21] VITALS (23 sets, daily range): BP systolic 112–130; BP diastolic 65–79; PULSE 108–119; RESP 12–21; TEMP 37.3–37.9; O2SAT 91–98; BMI 29.3
[2025-05-21] MEDS: CHLORHEXIDINE GLUC 2% CLOTH 1 EACH TOWELETTE TOPICAL (02:22)
[2025-05-21 03:46] LABS: Hematocrit 25.2 % (40-54); Hemoglobin 8.5 g/dL (13.0-16.5); Immature Granulocytes Count 0.070 X10^3/uL (0.0-0.0); Mean Corp Hgb Conc 33.7 g/dL (32-36); Mean Corpuscular Volume 88.7 fL (80-94); Mean Platelet Vol. 10.7 fl (6.2-12.0); NRBC Flagged by Analyzer 0 % (0-5); POSITIVE COUNT YES; Platelet Count 66 K/mm3 (150-450); RBC Distribution Width CV 18.1 % (11.6-14.6); RBC Distribution Width SD 55.3 fl (35.1-43.9); Red Blood Count 2.84 M/mm3 (4.6-6.2); White Blood Count 10.0 K/mm3 (4.4-11.0)
[2025-05-21 04:06] LABS: AST(SGOT) 23 U/L (<=37); Alanine Aminotransfer ALT/SGPT 14 U/L (<=46); Albumin, Serum 3.0 g/dL (3.5-5.0); Alkaline Phosphatase 71 U/L (40-129); Anion Gap 11 (5-15); BUN 23 mg/dL (4-19); BUN/Creat Ratio 19.6 RATIO (10-20); Calcium,Total 8.6 mg/dL (7.6-11.0); Carbon Dioxide 19.6 mmol/L (21.0-32.0); Chloride 108 mmol/L (98-108); Estimated Creatinine Clearance 73.65 ml/min (50-250); Globulin 2.2 g/dL (2.2-4.2); Glucose 256 mg/dL (70-99); Potassium 3.0 mmol/L (3.3-5.1)
--- NOTE | 2025-05-21 07:50 | PN.HOSP_ITS ---
Reason for Visit Chief Complaint: Altered mental status Objective Data Objective Data Vital Signs: Vital Signs Temp Pulse Resp BP Pulse Ox O2 Del Method FiO2 99.9 F H 118 H 18 118/68 95 Mechanical Ventilator 21 05/21/25 07:00 05/21/25 07:00 05/21/25 07:00 05/21/25 07:00 05/21/25 07:00 05/21/25 07:00 05/21/25 07:00 Oxygen Delivery Method Mechanical Ventilator Weight: 197 lb 15.602 oz Body Mass Index (BMI) 29.3 Intake & Output: Intake and Output for Last 24 Hours 05/19/25 05/20/25 05/21/25 23:59 23:59 23:59 Intake Total 1826.89 / 1916.89 2451.42 / 2451.42 622.75 / 622.75 Output Total 1675 / 2630 2080 / 3030 1500 / 1500 Balance 151.89 / -713.11 371.42 / -578.58 -877.25 / -877.25 Lab / Micro Data 05/21/25 03:36 05/21/25 03:36 Labs: Laboratory Results - last 24 hr 05/20/25 05:53: Immature Gran % (Auto) 0.800, Neut % (Auto) 80.7 H, Lymph % (Auto) 8.0 L, [place] % (Auto) 8.5, Eos % (Auto) 1.8, Baso % (Auto) 0.2, Absolute Neuts (auto) 7.5, Phosphorus 1.9 L 05/21/25 03:36: WBC 10.0, RBC 2.84 L, Hgb 8.5 L, Hct 25.2 L, MCV 88.7, MCH 29.9, MCHC 33.7, RDW Std Deviation 55.3 H, RDW Coeff of Francis 18.1 H, Plt Count 66 L, MPV 10.7, Immature Gran % (Auto) 0.700, Neut % (Auto) 79.1 H, Lymph % (Auto) 8.5 L, [place] % (Auto) 9.3, Eos % (Auto) 2.2, Baso % (Auto) 0.2, Absolute Neuts (auto) 7.9 H, Absolute Lymphs (auto) 0.85, Nucleated RBC % 0, Sodium 138, Potassium 3.0 L, Chloride 108, Carbon Dioxide 19.6 L, Anion Gap 11, BUN 23 H, Creatinine 1.19, Estim Creat Clear Calc 73.65, Est GFR (MDRD) Non-Af 71, BUN/Creatinine Ratio 19.6, Glucose 256 H, Calcium 8.6, Total Bilirubin 2.04 H, AST 23, ALT 14, Alkaline Phosphatase 71, Total Protein 5.2 L, Albumin 3.0 L, Globulin 2.2, Albumin/Globulin Ratio 1.3 Micro: Microbiology 05/15/25 23:35 Sputum, Tracheal Aspirate Gram Stain - Final 05/15/25 23:35 Sputum, Tracheal Aspirate Respiratory Culture - Final GNR lactose oracle iam consultant Rhythm Strip Rhythm Strip: Sinus Rhythm Rate: 82 Assessment & Plan Assessment/Plan (1) Acute hepatic encephalopathy: PLAN: Plan Patient is a 59-year-old gentleman with history of cirrhosis of the liver with multiple admissions presented with altered mental status. He had apparently not been compliant with his lactulose. Patient was felt not to be protecting his airway necessitating patient being intubated in the ED and subsequently admitted to the intensive care unit for further management next 1. Acute hepatic encephalopathy with significant hyperammonemia ? Secondary to noncompliance with therapy. Patient was found not to be protecting his airway on admission necessitating patient being intubated and admitted to the intensive care unit ? 05/17/2020 patient is currently awake on the vent undergoing weaning trial ? 05/18/2025; patient currently is off sedation per nursing staff patient is noted to have a bowel movement increase patient lactulose 20 g every 4 hours ? 05/19/2025 patient did not respond to lactulose necessitating patient being started on GoLytely by Dr. Dr. Li. Patient remains on the vent however is not responsive this morning compared to the day prior he had apparently received fentanyl for sedation ? 05/20/2025Patient seen remains on the vent only no response with deep sternal rub.. Plan is for family meeting on 05/20/2025 with hospice and subsequently terminal weaning Patient had fever Tmax 100.6 Fahrenheit 2. Acute hypoxic respiratory failure Per stated by patient significant encephalopathy patient was intubated in the ED prior to patient being admitted subsequently admitted to the intensive care unit Vent management deferred to pulmonary/intensive care ? 05/17/2025; weaning trial this a.m. ?05/18/2025; patient remains on the vent but currently off sedation, decision to wean patient off the vent deferred to family and consumer science professor ? Stay 2024; patient remains on the vent 3. Cirrhosis of the liver ? Secondary to nonalcoholic fatty liver disease patient is on rifaximin, Aldactone as well as furosemide at home plan is to resume following patient extubation 4. Anemia ? Secondary to chronic disorder monitoring H&H and transfuse if patient becomes symptomatic or hemoglobin falls below 7 5. Thrombocytopenia ? Chronic secondary to patient chronic liver disease will monitor with daily CBC with differential 6. Diabetes mellitus type II -patient's oral hypoglycemics held. Placed on long acting insulin, Accu-Cheks a.c. and at bedtime and covered with sliding scale insulin 7. History of extensive venous thrombosis - Patient was treated with Lovenox 8. GERD ? Patient is on PPI 9. Obstructive sleep apnea ? Patient is on CPAP at night ? Plan is to resume once patient is weaned off the vent 10. DVT prophylaxis ? Subcu Lovenox 11. Hyperkalemia ? Ordered 30 g of Kayexalate with repeat potassium levels ordered for now ? 05/18/2025; patient potassium levels remain elevated at 5.3 ? 05/19/2025; potassium down to 3.7 12. Acute renal failure with high suspicion for hepatorenal syndrome ? Consult placed to nephrology ? 05/19/2025; consult was placed to nephrology no significant change in creatinine level, 1.93 this a.m. 13. Nutrition ? Patient started on tube feed vital AF 1.2, with a goal rate of 60 mL per. Dietitian on consult Time spent in the patient's overall evaluation,decision-making process, review of diagnostic data, adjustment of management, discussion with other providers, nursing nursing and ancillary staff involved in patient's care documentation, 38 Minutes
[2025-05-21] MEDS: Chlorhexidine 15 ML PO (08:00)
--- NOTE | 2025-05-21 08:30 | NURSING ---
spoke w/pt's son Lizandro, update given, POC disc. It is his wish that no visitors beyond his sisters to visit at this time. It is his wish that after his sisters visit and he and his brother are able to visit via facetime, that the pt will be terminally extubated and a hospice consult placed.
--- NOTE | 2025-05-21 12:02 | PN.CC_ITS ---
Objective Data Objective Data Vital Signs: Vital Signs Last response 3 Temperature 37.7 C H 05/21/25 07:00 Temperature Source Core 05/21/25 07:00 Pulse Rate 112 H 05/21/25 10:20 Pulse Strength Weak (1+) 05/21/25 10:00 Respiratory Rate 19 H 05/21/25 10:20 Respiratory Effort Normal, Non-Labored, Mechanically Ventilated 05/21/25 08:00 Respiratory Depth Normal 05/21/25 08:00 Respiratory Pattern Normal 05/21/25 10:20 Blood Pressure 118/68 05/21/25 07:00 Blood Pressure Mean 84 05/21/25 07:00 Blood Pressure Source Monitor 05/21/25 07:00 Blood Pressure Position Semi-Fowlers 05/21/25 07:00 Blood Pressure Location Right Arm 05/21/25 07:00 Pulse Ox 94 05/21/25 10:20 Oxygen Delivery Method Mechanical Ventilator 05/21/25 08:00 Fraction of Inspired Oxygen (FIO2) 21 05/21/25 10:20 I&O: I&O Last 24 Hours 3 05/20/25 05/21/25 05/21/25 23:59 11:59 23:59 Intake Total 1508.25 / 2451.42 712.75 / 712.75 Output Total 600 / 3030 1500 / 1500 Balance 908.25 / -578.58 -787.25 / -787.25 I&O: Total Stay 3 05/15/25 15:43 thru 05/21/25 09:06 Intake Total 30894.14 Output Total 7445 Balance 4679.14 Current Meds Ordered / Administered: Current meds ordered / Administered 3 Generic Name Dose Route Start Last Admin Trade Name Freq PRN Reason Stop Dose Admin Acetaminophen 650 mg 05/15/25 20:26 Acetaminophen 325 Mg Tablet PO Q6H PRN PRN Pain 1-10 Or Fever>100.7 Acetaminophen 650 mg 05/15/25 20:26 Acetaminophen 650 Mg/20 Ml Udc NG Q6H PRN PRN Pain 1-10 or Fever Chlorhexidine Gluconate 15 ml 05/15/25 22:00 05/20/25 20:27 Chlorhexidine 15 Ml PO 15 ml BID KRYSTIN Administration Chlorhexidine Gluconate 1 each 05/16/25 10:00 05/21/25 02:22 Chlorhexidine Gluc 2% Cloth 1 Each Towelette TOPICAL 1 each DAILY KRYSTIN Administration Enoxaparin Sodium 40 mg 05/16/25 10:00 05/20/25 09:28 Enoxaparin 40 Mg/0.4 Ml Syringe SC 40 mg DAILY KRYSTIN Administration Sodium Chloride 250 mls @ 15 mls/hr 05/15/25 21:01 05/21/25 00:54 IV 0 mls/hr .[id number] PRN Infusion Saline Flush Sodium Chloride 250 mls @ 15 mls/hr 05/15/25 21:01 IV .[id number] PRN Additional IVPB Infusion Pantoprazole Sodium 40 mg/ 100 mls @ 300 mls/hr 05/16/25 10:00 05/20/25 21:18 Sodium Chloride IV Infused Q12 KRYSTIN Infusion Enteral Nutritional Formula 1,000 mls @ 60 mls/hr 05/19/25 13:55 05/21/25 02:26 Vital Af 1.2 Frank Liquid GT 60 mls/hr .[id number] KRYSTIN Infusion Sodium Chloride 250 mls @ 15 mls/hr 05/19/25 20:53 IV .[id number] PRN Saline Flush Sodium Chloride 250 mls @ 15 mls/hr 05/19/25 20:53 IV .[id number] PRN Additional IVPB Infusion Lactulose 20 gm 05/18/25 10:00 05/21/25 06:11 Lactulose 20 Gm/30 Ml Udc NG 20 gm Q4 KRYSTIN Administration Ondansetron HCl 4 mg 05/15/25 20:26 Ondansetron 4 Mg/2 Ml Vial IV Q8H PRN PRN NAUSEA/VOMITING Rifaximin 550 mg 05/16/25 10:00 05/20/25 20:27 Rifaximin 550 Mg Tablet GT 550 mg BID KRYSTIN Administration Sodium Chloride 10 - 40 ml 05/15/25 21:01 05/19/25 18:03 0.9% Saline Lock 10 Ml Syringe IV 20 ml UD PRN Administration SALINE FLUSH Sodium Chloride 10 - 40 ml 05/19/25 20:53 0.9% Saline Lock 10 Ml Syringe IV UD PRN SALINE FLUSH Lab / Micro Data Attestation: I reviewed the patient's lab results. 05/21/25 03:36 05/21/25 03:36 Labs: Laboratory Results - last 24 hr 05/21/25 03:36: WBC 10.0, RBC 2.84 L, Hgb 8.5 L, Hct 25.2 L, MCV 88.7, MCH 29.9, MCHC 33.7, RDW Std Deviation 55.3 H, RDW Coeff of Francis 18.1 H, Plt Count 66 L, MPV 10.7, Immature Gran % (Auto) 0.700, Neut % (Auto) 79.1 H, Lymph % (Auto) 8.5 L, [place] % (Auto) 9.3, Eos % (Auto) 2.2, Baso % (Auto) 0.2, Absolute Neuts (auto) 7.9 H, Absolute Lymphs (auto) 0.85, Nucleated RBC % 0, Sodium 138, Potassium 3.0 L, Chloride 108, Carbon Dioxide 19.6 L, Anion Gap 11, BUN 23 H, Creatinine 1.19, Estim Creat Clear Calc 73.65, Est GFR (MDRD) Non-Af 71, BUN/Creatinine Ratio 19.6, Glucose 256 H, Calcium 8.6, Total Bilirubin 2.04 H, AST 23, ALT 14, Alkaline Phosphatase 71, Total Protein 5.2 L, Albumin 3.0 L, Globulin 2.2, Albumin/Globulin Ratio 1.3 Rhythm Strip Rhythm Strip: Sinus Rhythm Rate: 82 Assessment and Plan . Assessment and plan: IMPRESSIONS: 1. Acute hypoxemic respiratory failure intubated for airway protection, now easily supported and anticipate planned extubation will be uncomplicated 2. Acute encephalopathy heptaic encephalopathy plus other contributors, management assisted by GI 3. History of HARRIS cirrhosis with frequent hospitalizations, per documents family understands gravity of his clinical condition and supports withdrawal of life supportive measures/ hospice care 4. History of anemia/thrombocytopenia/diabetes mellitus/GERD/obstructive sleep apnea Complicates care, management, recovery and prognosis. Continue PPI therapy as ordered. Continue to monitor blood counts daily and transfuse if hemoglobin drops below 7 g/dL. RECOMMENDATIONS: 1. to be extubated with family attending remotely via Zoom call today 2. Continue lactulose and rifaximin. 3. Continue PPI therapy. 4. Continue to hold all sedating medications. 6. Continue tube feeding for nutritional support. Will need to monitor potassium and phosphorus closely, given risk for refeeding syndrome CODE STATUS: DNR CCA Critical Care Time: 50 minutes The entirety of this encounter was done via Telemedicine Physical Exam Const alert and no apparent distress General Appearance: intubated and patient mechanically ventilated Orientation / Consciousness: awake and lethargic HEENT normocephalic and head/scalp atraumatic Head and Scalp: normal to inspection Mouth: endotracheal tube in place and OG tube in place Eyes PERRL and EOMs intact bilaterally Neck full ROM Resp normal respiratory effort Cardio regular rate Subjective Subjective Events reviewed, he remains easily supported on low vent settings, awake and responds weakly but appropriately
--- NOTE | 2025-05-21 12:20 | CASEMGMT ---
Addendum entered by Eloise Hightower 05/21/25 13:06: Social Work SW and RN tried multiple times and ways to set up a voice chat but we could not get this to work. Sons Lizandro and Dominic had a phone call w/pt, w/RN, RN from hospice and SW all assisting. Plan now is to extubate the pt. If he stabilizes he will be moved to the IPU. PIERRE Tobias Original Note: Social Work Pt's daughters did come to see pt this morning w/their aunt. Pt's son Lizandro has said to RN that he does not want Sylvia visiting pt. As per RN, Lizandro and Dominic do want to do a facetime call w/pt. After some trial and error, JEANNINE created a [employer] Meet and sent to Lizandro. He said he would pick it up in a few minutes. However it has been about 30 minutes and he is not picking up. SW called his cell phone, message left. SW called son Dominic, message left. RN from hospice is here, to be present to monitor how pt does once extubated. SW will continue to follow, waiting for sons to respond so they can participate in a video call w/the pt prior to extubation. Ander Bone aware pt may not make it after extubation. PIERRE Tobias
[2025-05-21] MEDS: 0.9% Saline Lock 10 ML Syringe IV (13:14)
--- NOTE | 2025-05-21 13:15 | CPS ---
this was a terminal extubation to hospice. Hospice Nurse and Darcy RN in room during extubation. Extubated to room air with an open order for oxygen as needed per hospice nurse.
--- NOTE | 2025-05-21 15:02 | PCM.DC.SUM ---
Providers Date of Admission: 05/15/25 Date of Discharge: 05/21/25 Primary Care Physician: YG Pena Consultations 05/15/25 20:26 Consult: [place] / Pulmonary Medicine Routine Consulting Provider: [facility] Reason for Consult: Vent management EMERGENT Consult: No Notified: Yes Date Notified: 05/15/25 Time Notified: 22:31 Method of Notification: Answering Service 05/16/25 09:46 Consult: Inpatient Palliative Care Routine Consulting Provider: Soco Alonso Reason for Consult: Frequent hospitalization for cirrhosis, not transplant candidate EMERGENT Consult: No MD Notified: Yes Date Notified: 05/16/25 Time Notified: 09:46 Method of Notification: Text 05/18/25 07:52 Consult: Nephrology Routine Consulting Provider: Josefina Khan Reason for Consult: ISABEL EMERGENT Consult: No MD Notified: Yes Date Notified: 05/18/25 Time Notified: 08:17 Method of Notification: Answering Service 05/18/25 07:59 Consult: Gastroenterology Routine Consulting Provider: [facility] Reason for Consult: Decompensated Cirrhosis EMERGENT Consult: No Notified: Yes Date Notified: 05/18/25 Time Notified: 07:59 Method of Notification: Verbal 05/20/25 11:15 Consult: Hospice / Outpatient Palliative Care Routine Consulting Provider: [facility] Reason for Consult: terminal extubation EMERGENT Consult: No Notified: Yes Date Notified: 05/20/25 Time Notified: 11:15 Method of Notification: Text Reason For Visit: ACUTE HEPATIC ENCEPHALOPATHY, ACUTE RESP FAILURE Diagnosis Discharge Diagnosis (1) Acute hepatic encephalopathy: Status: Acute Code(s): K76.82 - Hepatic encephalopathy Plan Patient is a 59-year-old gentleman with history of cirrhosis of the liver with multiple admissions presented with altered mental status. He had apparently not been compliant with his lactulose. Patient was felt not to be protecting his airway necessitating patient being intubated in the ED and subsequently admitted to the intensive care unit for further management next 1. Acute hepatic encephalopathy with significant hyperammonemia ? Secondary to noncompliance with therapy. Patient was found not to be protecting his airway on admission necessitating patient being intubated and admitted to the intensive care unit Patient was on ventilator failed weaning trial after sedation medications are off. Patient did not respond to lactulose therefore started on GoLytely via Dr. Li. Patient also had fever 100.6 Fahrenheit. The had a family meeting on 05/20 with hospice and terminal weaning decision was made. 05/21: Patient had terminal extubation in the with family remotely connected via Zoom call. Hospice nurse present near the bedside. After that patient was transferred to IPU unit. Continue lactulose and Xifaxan and PPI. Continue holding all sedative medications. Patient is evaluated by care coordinator 2. Acute hypoxic respiratory failure Per stated by patient significant encephalopathy patient was intubated in the ED prior to patient being admitted subsequently admitted to the intensive care unit Vent management deferred to pulmonary/intensive care ? 05/21: Patient was on ventilator in the morning. 3. Cirrhosis of the liver ? Secondary to nonalcoholic fatty liver disease patient is on rifaximin, Aldactone as well as furosemide at home plan is to resume following patient extubation 4. Anemia ? Secondary to chronic disorder: Hemoglobin was about 8.5 to 8.7%. 5. Thrombocytopenia ? Chronic secondary to patient chronic liver disease. Platelet count is about 66K. 6. Diabetes mellitus type II -patient's oral hypoglycemics held. Placed on long acting insulin, Accu-Cheks a.c. and at bedtime and covered with sliding scale insulin 7. History of extensive venous thrombosis - Patient was treated with Lovenox 8. GERD ? Patient is on PPI 9. Obstructive sleep apnea ? Patient is on CPAP at night ? Plan is to resume once patient is weaned off the vent 10. DVT prophylaxis ? Subcu Lovenox 11. Hyperkalemia ? Ordered 30 g of Kayexalate with repeat potassium levels ordered for now ? 05/21: Serum potassium 3.0 12. Acute renal failure with high suspicion for hepatorenal syndrome ? Consult placed to nephrology ? 05/19/2025; consult was placed to nephrology no significant change in creatinine level, 1.93 this a.m. 13. Nutrition ? Patient started on tube feed vital AF 1.2, with a goal rate of 60 mL per. Dietitian on consult Discharge medication reconciliation done. Discharge follow-up instructions completed. Discharge process discussed with the patient and all questions were answered to patient's satisfaction. Follow with PCP in 1 to 2 weeks. Patient discharged to IPU Total time spent, exact 35 minutes on discharge meds reconciliation, examination, coordination of care with nurses and ancillary staff, review of imaging and blood test and discussion with the patient on follow-up instructions. Medications at Discharge Home Medications acetaminophen 500 mg tablet 1,000 mg PO Q8 PRN fever or pain 10/28/24 cyclobenzaprine 10 mg tablet 10 mg PO QHS muscle relaxer 01/02/25 pen needle, diabetic 31 gauge x 5/16 (Pen Needle) #1,200 ea 01/31/25 insulin glargine-yfgn 100 unit/mL (3 mL) subcutaneous pen 30 unit subcut QHS blood glucose 03/10/25 insulin lispro 100 unit/mL subcutaneous pen (Humalog KwikPen (U-100) Insulin) 20 unit subcut TIDAC diabetes 04/07/25 metformin 500 mg tablet 500 mg PO QHS blood glucose 04/07/25 oxycodone 5 mg tablet 5 mg PO TID PRN PRN dyspnea 04/07/25 sodium bicarbonate 650 mg tablet 650 mg PO BID supplement 04/07/25 ascorbic acid (vitamin C) 500 mg tablet 500 mg PO BID supplement #60 tabs 04/10/25 carvedilol 3.125 mg tablet 6.25 mg (2 x 3.125 mg) PO BID BP 1 month #60 tabs 04/10/25 ferrous sulfate 325 mg (65 mg iron) tablet 325 mg PO QODAY supplement #30 tabs 04/10/25 furosemide 40 mg tablet 40 mg PO DAILY diuresis 30 days #30 tabs 04/10/25 lactulose 10 gram/15 mL oral solution 10 g (15 mL) PO 4XD liver 30 days #1 mL 04/10/25 spironolactone 100 mg tablet 150 mg (1.5 x 100 mg) PO DAILY BP 30 days #45 tabs 04/10/25 insulin lispro 100 unit/mL subcutaneous half-unit pen subcut blood glucose 04/18/25 aluminum-mag hydroxide-simethicone 400 mg-400 mg-40 mg/5 mL oral susp (Mylanta Maximum Strength) 5 ml PO Q6H PRN indigestion #3,000 mL 05/09/25 prochlorperazine maleate 5 mg tablet (Compazine) 5 mg PO TID PRN nausea and vomiting #90 tabs 10/06/25 Physical Exam Narrative Seen and examined in the morning Patient on the ventilator, opening eyes and responds. Physical exam General: Awake. Eyes open. Detail orientation cannot be ascertained HEENT: Atraumatic, PERRLA, EOMI, Normocephalic. Oral: No Gingival or Mucosal Lesions/ Ulcerations Neck: Supple, No JVD, Negative Carotid Bruits Chest wall/Lungs: Intubated on minimal vent setting Cardiovascular: Mild tachycardia no M/G/R Abdomen: Bowel Sounds Present, soft, umbilicus everted slight blackish color. Mild distention. : No dysuria. No renal angle tenderness. No suprapubic tenderness. Extremities: No edema, Capillary Refill Less than 3 Seconds Skin: No rashes, No breakdown Musculoskeletal: No acute tenderness to Palpation of Joints or Extremities Neurological: Intubated Psych/Mental Status: Flat affect intubated Weight / BMI Weight Weight: 197 lb 15.602 oz Body Mass Index (BMI) 29.3 ABG / Lab / Microbiology Data 05/21/25 03:36 05/21/25 03:36 Laboratory: Laboratory Results - last 24 hr 05/21/25 03:36: WBC 10.0, RBC 2.84 L, Hgb 8.5 L, Hct 25.2 L, MCV 88.7, MCH 29.9, MCHC 33.7, RDW Std Deviation 55.3 H, RDW Coeff of Francis 18.1 H, Plt Count 66 L, MPV 10.7, Immature Gran % (Auto) 0.700, Neut % (Auto) 79.1 H, Lymph % (Auto) 8.5 L, Riley % (Auto) 9.3, Eos % (Auto) 2.2, Baso % (Auto) 0.2, Absolute Neuts (auto) 7.9 H, Absolute Lymphs (auto) 0.85, Nucleated RBC % 0, Sodium 138, Potassium 3.0 L, Chloride 108, Carbon Dioxide 19.6 L, Anion Gap 11, BUN 23 H, Creatinine 1.19, Estim Creat Clear Calc 73.65, Est GFR (MDRD) Non-Af 71, BUN/Creatinine Ratio 19.6, Glucose 256 H, Calcium 8.6, Total Bilirubin 2.04 H, AST 23, ALT 14, Alkaline Phosphatase 71, Total Protein 5.2 L, Albumin 3.0 L, Globulin 2.2, Albumin/Globulin Ratio 1.3 Microbiology: Microbiology 05/15/25 23:35 Sputum, Tracheal Aspirate Gram Stain - Final 05/15/25 23:35 Sputum, Tracheal Aspirate Respiratory Culture - Final GNR 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 D/C Instructions DC O2, CPAP, BIPAP Needs Home O2 Discharge instructions: No Meaningful Use Info Meaningful Use Meaningful Use Diagnoses (Choose all that apply): None applicable Discharge Plan Admission Admit Date/Time: 05/15/25 18:55 Primary Reason for Your Visit: terminal extubation, Discharged to IPU Attending Provider: Anurag Irene Primary Care Provider: Josy Elias Consulting Providers: John Paul Masterson; Christian Abdi; Juarez Baird; Bola Meraz; Hill Renee; Carrie Garcia; Jeff Cornelius; Kapil Flor; Yury Canas; Dary Lund; Bharathi Trujillo; Will Lobo; Ruiz Burrell; Mina Xie; Betty Pruett; Gwendolyn Logan; Herlinda Thakkar; Rick Mendez; Fuentes,Mejia; Nomi,Stella; Redejak,Mohamed; Theo,Pato; Laurent,Elver; Angely,Nadeem; Dhesi,Mason; Anel Casey; Robin Nobles; Simon Walls; Kenneth Noland; Rui Vee; Lupillo Robbins; Sharon Suresh; Isaiah Richardson; Jasmine Morocoh NP; Glenda Jasso; Jae Ash; Soco Alonso; Anurag Irene; Niranjan Li; Bronwyn Singh; Stefani Ca; Nelida Harris; Josefina Khan; Hill Macedo; Roselyn Stoddard; Stefani Mccray; Pamella Cao; Jesica Jacques [employer]; Mona Rea; Hill Acuña Discharge Orders/Prescriptions Prescriptions: No Action cyclobenzaprine 10 mg tablet 10 mg PO QHS (DME) pen needle, diabetic [Pen Needle] 31 gauge x 5/16 needle See Rx Instructions .Route Qty: 1200 0RF Rx Instructions: As directed acetaminophen 500 mg Tablet 1,000 mg PO Q8 PRN (Reason: fever or pain) insulin glargine-yfgn 100 unit/mL (3 mL) Insulin Pen 30 unit subcut QHS metformin 500 mg tablet 500 mg PO QHS sodium bicarbonate 650 mg tablet 650 mg PO BID oxycodone 5 mg tablet 5 mg PO TID PRN PRN (Reason: dyspnea) insulin lispro [Humalog KwikPen Insulin] 100 unit/mL Insulin Pen 20 unit subcut TIDAC furosemide 40 mg Tablet 40 mg PO DAILY 30 Days Qty: 30 2RF ferrous sulfate 325 mg (65 mg iron) tablet 325 mg PO QODAY Qty: 30 2RF ascorbic acid (vitamin C) 500 mg tablet 500 mg PO BID Qty: 60 2RF spironolactone 100 mg tablet 150 mg PO DAILY 30 Days Qty: 45 3RF Rx Instructions: Hold for serum potassium more than 5.0. carvedilol 3.125 mg tablet 6.25 mg PO BID 30 Days Qty: 60 2RF Rx Instructions: must administer with a meal/food lactulose 10 gram/15 mL Solution 10 g PO 4XD 30 Days Qty: 1 0RF Patient Comments: hasn't been taking at home Rx Instructions: Goal to have 2-3 soft bowel movements per day insulin lispro 100 unit/mL insulin pen, half-unit SUBCUT Patient Comments: INJECT 20 UNITS THREE TIMES DAILY FOR CONTROLLING BLOOD SUGARS alum-mag hydroxide-simeth [Mylanta Maximum Strength] 400-400-40 mg/5 mL suspension 5 ml PO Q6H PRN (Reason: indigestion) Qty: 3000 0RF prochlorperazine maleate [Compazine] 5 mg tablet 5 mg PO TID PRN (Reason: nausea and vomiting) Qty: 90 0RF Referrals / Follow Up: Josy Elias NP-C [Primary Care Provider, Family Practice] Disposition Disposition (needs filled in before D/C Order can be placed): Hospice in Medical Facility Charges/Coding Visit Charges Inpatient E&M: 34215 Disch Hosp >30min
== END 2025-05-21 15:45 | disposition hospice, inpatient (51) ==
LOC: ED 16:19 → ICU 19:22
PROVIDERS: Internal Medicine; Internal Medicine Critical Care Medicine; Internal Medicine Gastroenterology; Internal Medicine Pulmonary Disease; Admitting Provider Hospitalist; Emergency Provider Emergency Medicine; PCP Nurse Practitioner Family; Visit Provider Internal Medicine
DX: K76.82 Hepatic encephalopathy (principal); J96.01 Acute respiratory failure with hypoxia; G93.41 Metabolic encephalopathy; K72.90 Hepatic failure, unspecified without coma; D63.8 Anemia in other chronic diseases classified elsewhere; D68.9 Coagulation defect, unspecified; E87.20 Acidosis, unspecified; N17.9 Acute kidney failure, unspecified; Z51.5 Encounter for palliative care; Z66 Do not resuscitate; I81 Portal vein thrombosis; E11.22 Type 2 diabetes mellitus with diabetic chronic kidney disease; I12.9 Hypertensive chronic kidney disease with stage 1 through stage 4 chronic kidney disease, or unspecified chronic kidney disease; N18.9 Chronic kidney disease, unspecified; K76.7 Hepatorenal syndrome; E87.1 Hypo-osmolality and hyponatremia; Z79.4 Long term (current) use of insulin; I95.9 Hypotension, unspecified; K74.60 Unspecified cirrhosis of liver; E78.5 Hyperlipidemia, unspecified; K75.81 Nonalcoholic steatohepatitis (NASH); E11.649 Type 2 diabetes mellitus with hypoglycemia without coma; E87.5 Hyperkalemia; K21.9 Gastro-esophageal reflux disease without esophagitis; G47.33 Obstructive sleep apnea (adult) (pediatric); I85.10 Secondary esophageal varices without bleeding; T47.3X6A Underdosing of saline and osmotic laxatives, initial encounter; Z91.148 Patient's other noncompliance with medication regimen for other reason; R62.7 Adult failure to thrive; D69.6 Thrombocytopenia, unspecified; Z79.84 Long term (current) use of oral hypoglycemic drugs; N39.0 Urinary tract infection, site not specified; N20.0 Calculus of kidney; Z87.891 Personal history of nicotine dependence; Z86.718 Personal history of other venous thrombosis and embolism
CPT/HCPCS: 31500; 31720; 36600; 51702; 70450; 71045; 74018; 80048; 80053; 80307; 81001; 82077; 82140; 82550; 82803; 82962; 83605; 83690; 83735; 84100; 84145; 84478; 85025; 85027; 85610; 85730; 86850; 86900; 86901; 87070; 87205; 93005; 94002; 94003; 94660; 97802; 97803; 99252; 99285; P9047; P9612; A4216; G0463